=== PATIENT | female | born 1985 | race Caucasian/White ===

== ENCOUNTER 2022-07-17 11:39 | Outpatient (OUT) | payer BC, SELFPAY ==
[2022-07-17 16:36] VITALS: BMI 37.4
== END 2022-07-17 11:40 | disposition home or self-care (01) ==
PROVIDERS: PCP Family Medicine; Visit Provider Family Medicine
DX: K90.0 Celiac disease (principal)
CPT/HCPCS: 97802; S9470

== ENCOUNTER 2022-09-02 14:08 | Outpatient (OUT) | payer BC, SELFPAY ==
--- NOTE | 2022-09-02 07:20 | US_ITS ---
The [address] [address] Patient Name: LEANA TRAN MRN: [id number] date: 1985 Sex: F Assigned Patient Location: US Current Patient Location: US Accession/Order Number: [id number] Exam Date: 09/02/2022 07:25 Report Date: 09/02/2022 09:56 At the request of: ESTEBAN WALTERS Procedure: US renal BI PROCEDURE: US renal BI DATE: 09/02/2022 6:25 AM CDT COMPARISONS: CT abdomen and pelvis 11/14/[address] abdomen pelvis 02/24/2020 INDICATION FOR EXAMINATION: 36 years Female GROSS HEMATURIA R31.0 TECHNIQUE: Grayscale and color Doppler technique were utilized to evaluate the retroperitoneum. FINDINGS: KIDNEYS: The right kidney measures 9.5 x 6.1 x 4.3 cm. The left kidney measures 11.3 x 5.5 x 5.4 cm. There is no evidence of hydronephrosis. There is no ultrasonic evidence of solid focal renal masses or other significant renal parenchymal abnormalities. 8 x 8 x 7 mm hypoechoic area mid left kidney. This is nonspecific. This appears to have been on CT of 11/14/2021 and 02/24/2020. 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 It is likely of no clinical significance. There is no evidence of cortical thinning. URINARY BLADDER: There is no ultrasonic evidence of urinary bladder abnormalities. Bladder volume was approximately 500 mL of the time of this exam. ASSESSMENT: The kidneys and urinary bladder show no ultrasonic evidence of significant abnormalities. Electronically authenticated by: JIMI MAHONEY Date: 09/02/2022 09:56
== END 2022-09-02 14:09 | disposition home or self-care (01) ==
LOC: US 09-04 14:09
PROVIDERS: PCP Family Medicine; Visit Provider Urology
DX: R31.0 Gross hematuria (principal)
CPT/HCPCS: 76775

== ENCOUNTER 2022-10-06 07:27 | Outpatient (OUT) | payer BC, SELFPAY ==
[2022-10-06 08:13] LABS: Free T4 0.99 ng/dL (0.76-1.46)
[2022-10-06 09:48] LABS: Free T3 2.48 pg/mL (2.18-3.98); Thyroid Stimulating Hormone 4.255 uIU/mL (0.358-3.740)
== END 2022-10-06 07:28 | disposition home or self-care (01) ==
LOC: LAB 07:28
PROVIDERS: PCP Family Medicine
DX: E03.9 Hypothyroidism, unspecified (principal)
CPT/HCPCS: 36415; 84439; 84443; 84481

== ENCOUNTER 2022-12-12 10:56 | Outpatient (OUT) | payer BC, SELFPAY ==
[2022-12-12 12:49] LABS: Thyroid Stimulating Hormone 0.522 uIU/mL (0.358-3.740)
[2022-12-12 15:05] LABS: Free T4 0.92 ng/dL (0.76-1.46)
== END 2022-12-12 10:57 | disposition home or self-care (01) ==
PROVIDERS: PCP Family Medicine
DX: E03.8 Other specified hypothyroidism (principal); E06.3 Autoimmune thyroiditis
CPT/HCPCS: 36415; 84439; 84443

== ENCOUNTER 2023-01-01 15:53 | Outpatient (OUT) | payer BC, SELFPAY ==
[2023-01-01 16:25] LABS: Estimated Average Glucose 120 mg/dL; Glycohemoglobin A1C 5.8 % (4.5-6.2)
== END 2023-01-01 15:54 | disposition home or self-care (01) ==
LOC: LAB 15:54
PROVIDERS: PCP Family Medicine; Visit Provider Family Medicine
DX: E11.65 Type 2 diabetes mellitus with hyperglycemia (principal)
CPT/HCPCS: 36415; 83036

== ENCOUNTER 2023-01-24 09:21 | Outpatient (OUT) | payer BC, SELFPAY ==
--- OUTSIDE RECORDS SUMMARY | 2023-01-24 09:46 | XMS_ITS | CCD ---
Author Name Unknown Address [id number] [place] [address] Organization [facility] Care Team Providers Care Vendor Specialist Name Role Phone Cas Dowell MD Primary Care Provider CAS DOWELL Primary Care Unavailabl e CANDIDO DAVID Referring Unavailable CAS DOWELL Primary Care Unavailabl e NABOR YANCEY Referring Unavailable Cas Dowell MD Primary Care Provider Cas Dowell MD Primary Care Provider Cas Dowell Primary Care Provider [phone] Ana PEREZ, Sai Unavailable Rubens Tim Unavailable Rubens Tim DO Unavailable Cas Dowell MD Primary Care Provider Cas Dowell Primary Care Provider [phone] Ana PEREZ, Sai Unavailable Rubens Tim DO Unavailable Cas Dowell Primary Care Provider [phone] Rubens Tim DO Unavailable Cas Dowell Primary Care Provider CAS DOWELL Primary Care Physician CAS DOWELL Primary Care UnavailCas Cantor Primary Care Provider Ana PEREZ, Sai Unavailable Glenroy Rubens Vikram Unavailable Cas Dowell MD Primary Care Provider Glenroy Rubens Suzy Unavailable MUNIR, FUENTES Referring Unavailable NADERER, CAS Guzman Primary Care Unavailable ANA, SAI Referring Unavailable NADERER, CAS Gzuman Primary Care Unavailable GUZZOPETER Referring Unavailable NADERER, CAS Guzman Primary Care Unavailable ABHYANKAR, FUENTES Referring Unavailable NADERER, CAS Guzman Primary Care Unavailable PAY ., DR BURDEN Consulting Unavailable PAY ., DR BURDEN Attending Unavailable PAY ., DR BURDEN Admitting Unavailable NADERER, DR CAS Guzman Primary Care Unavailable NIRU, JEAN Consulting Unavailable EPSTEIN, MAREK Consulting Unavailable KLIPPER, BELÉN Consulting Unavailable NADERER, DR CAS Guzman Consulting Unavailable NADERER, DR CAS Guzman Primary Care Unavailable NADERER, DR CAS Guzman Referring Unavailable NADERER, DR CAS Guzman Attending Unavailable NADERER, DR CAS Guzman Admitting Unavailable ZIEBER, DR HUSAM Almonte Consulting Unavailable NADERER, DR CAS Guzman Primary Care Unavailable NADERER, DR CAS Guzman Attending Unavailable NADERER, DR CAS Guzman Admitting Unavailable NADERER, DR CAS Guzman Consulting Unavailable NADERER, DR CAS Guzman Consulting Unavailable NADERER, DR CAS Guzman Primary Care Unavailable NADERER, DR CAS Guzman Attending Unavailable NADERER, DR CAS Guzman Admitting Unavailable MISC, DR MADDOX Consulting Unavailable NADERER, DR CAS Guzman Primary Care Unavailable MISC, DR MADDOX Attending Unavailable MISC, DR MADDOX Admitting Unavailable NADERER, DR CAS Guzman Consulting Unavailable NADERER, DR CAS Guzman Primary Care Unavailable NADERER, DR CAS Guzman Attending Unavailable NADERER, DR CAS Guzman Admitting Unavailable NADERER, DR CAS Guzman Consulting Unavailable NADERER, DR CAS Guzman Primary Care Unavailable NADERER, DR CAS Guzman Attending Unavailable NADERER, DR CAS Guzman Admitting Unavailable [place], DR BELÉN Hatfield Consulting Unavailable NADERER, DR CAS Guzman Primary Care Unavailable TEJ, LORAINE Attending Unavailable TEJ, LORAINE Admitting Unavailable TEJ, LORAINE Consulting Unavailable GLENROY ., DR REYNOLDS Consulting Unavailable NADERER, DR CAS Guzman Primary Care Unavailable GLENROY ., DR REYNOLDS Attending Unavailable GLENROY ., DR REYNOLDS Admitting Unavailable FAWWAD, BLACKBURN H Primary Care Unavailable FAWWAD, BLACKBURN H Attending Unavailable FAWWAD, BLACKBURN H Admitting Unavailable REINECK, DR CORIE Espinosa Consulting Unavailabl e REINECK, DR CORIE Espinosa Attending Unavailabl e REINECK, DR CORIE Espinosa Admitting Unavailabl e NADERER, DR CAS Guzman Primary Care Unavailable PAY ., DR BURDEN Consulting Unavailable DARYN, AYAKA Consulting Unavailable RAYMOND, DR BELÉN [place] Consulting Unavailable MATILDE ., MARICEL Attending Unavailable MATILDE ., MARICEL Admitting Unavailable NADERER, DR CAS Guzman Primary Care Unavailable MORTEZA ., YANIRA Consulting Unavailable DAMION, JIMMY Starkey Consulting Unavailable Ana PEREZ, Sai Unavailable NADERER, CAS A Primary Care Unavailable ABHYANKAR, FUENTES Attending Unavailable NADERER, CAS A Primary Care Unavailable ABHYANKAR, FUENTES Attending Unavailable ABHYANKAR, FUENTES Referring Unavailable NADERER, CAS A Primary Care Unavailable ABHYANKAR, FUENTES Attending Unavailable NADERER, CAS A Primary Care Unavailable HARSH, RUTH Referring Unavailable HARSH, RUTH Attending Unavailable NADERER, CAS A Primary Care Unavailable AIDENCINDY Attending Unavailable NADERER, CAS A Primary Care Unavailable NADERER, CAS A Referring Unavailable ANA, SAI Referring Unavailable NADERER, CAS A Primary Care Unavailable LANDEN CLARK Attending Unavailable NADERER, CAS A Primary Care Unavailable NADERER, CAS A Primary Care Unavailable DEVNANI, MEENA Attending Unavailable NADERER, CAS A Primary Care Unavailable ABHYANKAR, FUENTES Referring Unavailable ABHYANKAR, FUENTES Attending Unavailable NADERER, CAS A Primary Care Unavailable DEVNANI, MEENA Referring Unavailable NADERER, CAS A Primary Care Unavailable DIANANIDOLORES Razo Attending Unavailable GRENFELL, BHARGAVI Attending Unavailable NADERER, CAS A Primary Care Unavailable NADERER, CAS A Primary Care Unavailable DEVNANI, MEENA Referring Unavailable GRENFELL, BHARGAVI Attending Unavailable NADERER, CAS A Primary Care Unavailable GRENFELL, BHARGAVI Referring Unavailable DEVNANI, MEENA Attending Unavailable NADERER, CAS A Primary Care Unavailable ANAMICHEAL CHANCE Attending Unavailable NADERER, CAS A Primary Care Unavailable NADERER, CAS A Primary Care Unavailable ABHYANKAR, FUENTES Attending Unavailable BHARGAVI SALDANA Attending Unavailable NADERER, CAS A Primary Care Unavailable NADERER, CAS A Primary Care Unavailable NADERER, CAS A Primary Care Unavailable DEVNANIMEENA Attending Unavailable NADERER, CAS A Primary Care Unavailable ABHYANKAR, FUENTES Attending Unavailable ABHYANKAR, FUENTES Referring Unavailable NADERER, CAS A Primary Care Unavailable ABHYANKAR, FUENTES Referring Unavailable ABHYANKAR, FUENTES Attending Unavailable NADERER, CAS A Primary Care Unavailable CHAYO MARTINS Admitting Unavailable CHAYO MARTINS Attending Unavailable NADERER, CAS DEMING Primary Care Unavailabl e FRANTZ, LIV Consulting Unavailable NADERER, [facility] Primary Care Unavailabl e SEAN MOSES Attending Unavailable NADERER, CAS DEMING Primary Care Unavailabl e NADERER, CAS DEMING Primary Care Unavailabl e NADERER, [facility] Primary Care Unavailabl e YAO, AKILA Referring Unavailable NADERER, [facility] Primary Care Unavailabl e YAO, AKILA Referring Unavailable Nadelr , [facility] Primary Care Unavail able William PEREZ, Phillip Guerra Attending Unavailable William PEREZ, Phillip Guerra Attending Unavailable Grayson PEREZ, [facility] Primary Care Unavail able Grayson PEREZ, [facility] Primary Care Unavail able William PEREZ, Phillip Guerra Attending Unavailable William PEREZ, Phillip Guerra Attending Unavailable Grayson PEREZ, [facility] Primary Care Unavail able William PEREZ, Phillip Guerra Attending Unavailable Grayson PEREZ, [facility] Primary Care Unavail able TEJLORAINE CASTRO Attending Unavailable TEJ, LORAINE E Attending Unavailable TEJ LORAINE E Attending Unavailable COOKMarcell P Referring Unavailable COOK, Marcell P Attending Unavailable COOK, Marcell P Admitting Unavailable NILTesfaye Lewis Attending Unavailable NADERERCAS Referring Unavailable KARABIMagalis, MACRINA Attending Unavailable KARABIN, MACRINA Attending Unavailable KARABIN, MACRINA Attending Unavailable KARABIN, MACRINA Attending Unavailable ABELSTEPHON Admitting Unavailable ABEL, STEPHON Attending Unavailable ANGELIKA CORONEL Attending Unavailable ANGELIKA CORONEL Attending Unavailable NADERER, CAS Attending Unavailable Allergies Allergy Classification Reported Allergen(s) Allergy Type Date of Onset Reaction(s) Facility Aluminum aspirin (1 source) Aluminum aspirin Drug Allergy 09-04-19 12 [facility] Cephalosporins (antibiotic) (2 sources) Cefaclor Drug Allergy 09-04-19 12 Shortness Of Breath, [facility] Phone: drospirenone / Ethinyl Estradiol (1 source) drospirenone / Ethinyl Estradiol Drug Allergy 09-04-19 12 [facility] Phone: Ethinyl Estradiol / Norethindrone (1 source) Ethinyl Estradiol / Norethindrone Drug Allergy 09-04-19 12 [facility] Phone: Latex (1 source) Latex Substance Allergy 09-04-19 12 Swelling, [facility] Phone: Macrolides (antibiotic) (1 source) Erythromycin Drug Allergy 09-04-19 12 Shortness Of Breath [facility] Phone: NSAIDs (1 source) Ibuprofen Drug Allergy 09-04-19 12 [facility] Phone: Penicillins (antibiotic) (1 source) Penicillins Drug Allergy 09-04-19 12 [facility] Phone: rofecoxib (1 source) rofecoxib Drug Allergy 09-04-19 12 [facility] Phone: Sulfonamides (antibiotic) (1 source) Sulfonamides (Antibiotic) Drug Allergy 03-21-19 16 [facility] Unclassified (8 sources) Clindamycin/Lincomy juan Propensity to adverse reactions to drug 09-04-19 12 [facility] Phone: Unclassified (20 sources) Iodides; Translations: [IODIDES] Propensity to adverse reactions to drug 09-04-19 12 Unknown [facility] Phone: Unclassified (8 sources) Lavender Oil Propensity to adverse reactions to drug 06-14-19 21 Anaphylaxis [facility] (11 sources) Aluminum aspirin; Translations: [ASPIRIN] Drug Allergy 09-04-19 12 Rash [facility] (20 sources) Cefaclor; Translations: [cefaclor] Drug Allergy 09-04-19 12 Shortness Of Breath, Anaphylaxis, Swelling, Unknown (qualifier value) [facility] Phone: (20 sources) Cefuroxime; Translations: [CEFUROXIME AXETIL] Drug Allergy 09-04-19 12 Rash, Unknown, Shortness of Breath [facility] Phone: (20 sources) drospirenone / Ethinyl Estradiol; Translations: [DROSPIRENONE-ETHIN YL ESTRADIOL] Drug Allergy 09-04-19 12 Unknown, Other: See Comments [facility] Phone: (20 sources) Erythromycin; Translations: [ERYTHROMYCIN] Drug Allergy 09-04-19 12 Shortness Of Breath, Swelling, Unknown [facility] Phone: (7 sources) Ethinyl Estradiol / Norethindrone Drug Allergy 09-04-19 12 [facility] Phone: (11 sources) Ibuprofen; Translations: [ibuprofen] Drug Allergy 09-04-19 12 Unknown (qualifier value) [facility] (20 sources) Latex; Translations: [LATEX] Propensity to adverse reactions to drug 09-04-19 12 Swelling, Rash, Itching, Unknown, Eruption of skin (disorder) [facility] Phone: (9 sources) Penicillins; Translations: [PENICILLINS] Propensity to adverse reactions to drug 09-04-19 12 Rash [facility] Phone: (20 sources) rofecoxib Drug Allergy 09-04-19 12 Unknown [facility] Phone: (6 sources) Sulfonamides (Antibiotic) Propensity to adverse reactions to drug 03-21-19 16 [facility] (20 sources) Aspirin; Translations: [aspirin] Drug Allergy 02-23-19 15 Unknown, Angioedema, Unknown (qualifier value) [facility] (20 sources) Clindamycin; Translations: [clindamycin] Drug Allergy 02-23-19 15 Swelling, Shortness of Breath, Rash, Unknown (qualifier value) [facility] (20 sources) Contrast media; Translations: [CONTRAST DYE] Drug Allergy 09-04-19 12 Anaphylaxis [facility] (20 sources) Naproxen; Translations: [NAPROXEN] Drug Allergy 09-07-19 21 Swelling, Angioedema [facility] (19 sources) Penicillins Propensity to adverse reactions to drug 02-23-19 15 Rash, Itching [facility] (20 sources) Sulfonamides (Antibiotic); Translations: [SULFA (SULFONAMIDE ANTIBIOTICS)] Drug Allergy 03-21-19 16 Swelling, Shortness of Breath [facility] (20 sources) Lavender (Lavandula Angustifolia); Translations: [LAVENDER (LAVANDULA ANGUSTIFOLIA)] Drug Allergy 06-14-19 21 Anaphylaxis [facility] (4 sources) Eucalyptus oil Drug Allergy 10-24-19 21 [facility] (20 sources) gatifloxacin; Translations: [GATIFLOXACIN] Drug Allergy 12-22-19 15 Diarrhea [facility] Work Phone: (18 sources) Norethindrone-Ethin Estradiol; Translations: [NORETHINDRONE-ETHI N ESTRADIOL] Propensity to adverse reactions to drug 06-09-19 22 Unknown [facility] (20 sources) Eucalyptus extract; Translations: [EUCALYPTUS] Drug Allergy 10-24-19 21 Anaphylaxis [facility] (20 sources) levoFLOXacin; Translations: [LEVOFLOXACIN] Drug Allergy 11-12-19 21 Rash [facility] (17 sources) metroNIDAZOLE; Translations: [METRONIDAZOLE] Drug Allergy 03-02-19 22 Unknown [facility] (18 sources) Sulfamethoxazole / Trimethoprim; Translations: [SULFAMETHOXAZOLE-T RIMETHOPRIM] Drug Allergy 01-24-20 14 Unknown [facility] (20 sources) Fish; Translations: [FISH CONTAINING PRODUCTS] Drug Allergy 07-26-19 22 [facility] Work Phone: (20 sources) Shellfish; Translations: [SHELLFISH DERIVED] Drug Allergy 07-26-19 22 [facility] Work Phone: (20 sources) Penicillins Propensity to adverse reactions to drug 09-04-19 12 Rash, Itching [facility] (20 sources) Penicillin G; Translations: [PENICILLIN G BENZATHINE] Drug Allergy 08-19-19 22 Unknown [facility] Work Phone: (6 sources) Iodine; Translations: [iodine] Drug Allergy 05-25-19 23 Unknown (qualifier value) [facility] (6 sources) Macrolides (Antibiotic); Translations: [macrolide antibiotics] Drug allergy 09-04-19 12 Allergy - specialty (qualifier value) [facility] (6 sources) Penicillin; Translations: [penicillin] Drug Allergy Unknown (qualifier value) [facility] (6 sources) Sulfonamides (Antibiotic); Translations: [sulfa drugs] Drug allergy Allergy - specialty (qualifier value) [facility] (7 sources) valACYclovir; Translations: [valacyclovir] Drug Allergy 10-06-19 22 Anaphylaxis (disorder), Shortness Of Breath [facility] (5 sources) Povidone-Iodine; Translations: [povidone iodine topical] Drug Allergy 05-25-19 23 Eruption of skin (disorder) [facility] (1 source) Seafood Propensity to adverse reactions to drug 01-09-20 22 Hives, Rash [facility] Work Phone: (3 sources) rofecoxib; Translations: [ROFECOXIB] Drug Allergy 09-04-19 12 [facility] Rep[facility] (3 sources) IODINATED CONTRAST MEDIA; Translations: [IODINATED CONTRAST MEDIA] Propensity to adverse reactions to drug (disorder) 02-23-19 15 [facility] (1 source) Aspirin Drug Allergy 03-12-19 15 [facility] Repository (3 sources) Cefaclor; Translations: [Ceclor] Drug Allergy 03-12-19 15 [facility] Rep[facility] (2 sources) Cefuroxime; Translations: [Ceftin] Drug Allergy 03-12-19 15 [facility] (1 source) Clindamycin Drug Allergy 03-12-19 15 [facility] (1 source) Erythromycin Drug Allergy 03-12-19 15 [facility] (1 source) Eucalyptus extract Drug Allergy 10-24-19 21 [facility] (1 source) gatifloxacin Drug Allergy 12-22-19 15 [facility] (2 sources) Ibuprofen; Translations: [Motrin] Drug Allergy [facility] (1 source) Iodine (And Iodine Containting Drugs) Drug allergy (disorder) 03-12-19 15 [facility] (1 source) Latex Drug allergy (disorder) 03-12-19 15 [facility] (1 source) levoFLOXacin Drug Allergy 11-12-19 21 [facility] (1 source) Naproxen Drug Allergy 08-07-19 21 [facility] (1 source) Penicillins Drug allergy (disorder) 03-12-19 15 [facility] (1 source) rofecoxib Drug Allergy 03-12-19 15 [facility] (1 source) Sulfamethoxazole / Trimethoprim Drug Allergy 02-23-19 21 [facility] (1 source) Sulfonamides (Antibiotic) Drug allergy (disorder) 03-12-19 15 [facility] (1 source) valACYclovir Drug Allergy [facility] Rep[facility] (1 source) CT dye and contrast; Translations: [CT dye and contrast] Propensity to adverse reactions (disorder) [facility] Repository (1 source) buPROPion; Translations: [BUPROPION] Drug Allergy 06-22-19 [facility] Repository (1 source) dimethicone; Translations: [DIMETHICONE] Drug Allergy 07-08-19 23 [facility] (1 source) Ibuprofen; Translations: [IBUPROFEN] Drug Allergy 09-04-19 12 [facility] (1 source) Menthol; Translations: [MENTHOL] Drug Allergy 02-27-19 23 [facility] (1 source) natural latex rubber; Translations: [LATEX, NATURAL RUBBER] Propensity to adverse reactions to drug (disorder) 09-04-19 12 [facility] (1 source) zolpidem; Translations: [ZOLPIDEM] Drug Allergy 05-25-19 [facility] (1 source) GLOVES, LATEX WITH ALOE VERA; Translations: [GLOVES, LATEX WITH ALOE VERA] Propensity to adverse reactions to drug (disorder) 08-19-19 [facility] (1 source) NORETHINDRONE AC-ETH ESTRADIOL; Translations: [NORETHINDRONE AC-ETH ESTRADIOL] Propensity to adverse reactions to drug (disorder) 09-04-19 [facility] Rep[facility] Medications Current Medications Medication Drug Class(es) Dates Sig (Normalized) Sig (Original) 6-aminocaproic acid 500 mg oral tablet (5 sources) Antifibrinolytic Agent Start: 04-03-2022 End: 10-22-2022 aminocaproic acid (AMICAR) 500 mg tablet Indications: 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HCC) Take 2 tablets by mouth every 6 hours as needed (once prior to dentist and then after for 3-4 doses.) for up to 20 days. 40 tablet 3 10/02/2022 10/22/2022 Active Comment on above: Take 2 tablets by mo uth every 6 hours as needed (once prior to dentist and then after for 3-4 doses.) for up to 5 days. Take 2 tablets by mo uth every 6 hours as needed (once prior to dentist and then after for 3-4 doses.) for up to 20 days. acetaminophen 500 mg oral tablet (2 sources) Start: 01-30-2022 take 1 tablet by mouth every six hours as needed for pain acetaminophen (TYLENOL) 500 MG tablet Take 1 tablet by mouth every 6 hours as needed for Pain 30 tablet 0 01/30/2022 Active Start: 11-01-2020 End: 11-01-2020 acetaminophen (TYLENOL) tabl et 650 mg acetaminophen 325 mg / butalbital 50 mg / caffeine 40 mg oral tablet (1 source) Barbiturate, Central Nervous System Stimulant, Methylxanthine take 1 tablet by mouth every four hours as needed for headache yqtgimdxho-wvcjebgyyeytl-qipswdso (FIORICET) 50-325-40 MG per tablet Take 1 tablet by mouth every 4 hours as needed for Headaches 0 Active acetaminophen 325 mg / HYDROcodone bitartrate 5 mg oral tablet (1 source) Opioid Agonist Sta rt: 2 End : 2 HYDROcodone-acetaminophen (N ORCO) 5-325 MG per tablet Indications: Abdominal pain, acute, right lower quadrant Take 1 tablet by mouth every 8 hours as needed for Pain for up to 2 days. Intended supply: 3 days. Take lowest dose possible to manage pain 6 tablet 0 05/20/2021 05/22/2021 Active [id number] 200 actuat albuterol 0.09 mg/actuat metered dose inhaler (20 sources) beta2-Adrenergic Agonist Sta rt: 2 albuterol (PROVENTIL) (2.5 M G/3ML) 0.083% nebulizer solution Take 3 mLs by nebulization every 6 hours as needed for Wheezing 120 each 3 01/11/2022 Active Start: 01-11-2022 take 1 puff(s) by inhalation every six hours as needed for wheezing albuterol sulfate HFA (PROVENTIL;VENTOLIN;PROAIR) 108 (90 Base) MCG/ACT inhaler Inhale 1 puff into the lungs every 6 hours as needed for Wheezing 18 g 3 01/11/2022 Active Start: 06-04-2021 albuterol (PRO VENTIL) nebulizer solution 2.5 mg Start: 11-01-2020 End: 05-20-2021 albuterol (PROVENTIL) (2.5 M G/3ML) 0.083% nebulizer solution Take 3 mLs by nebulization every 6 hours as needed for Wheezing 30 each 3 11/01/2020 05/20/2021 Discontinued (LIST CLEANUP) End: 10-31-2021 ALBUTEROL INHALATION Inhale as instructed as needed. 0 10/31/2021 Discontinued take 2 puff(s) by inhalation every six hours as needed for wheezing albuterol sulfate HFA (PROVENTIL;VENTOLIN;PROAIR) 108 (90 Base) MCG/ACT inhaler Inhale 2 puffs into the lungs every 6 hours as needed for Wheezing 0 Active ALBUTEROL INHALA TION Inhale as instructed as needed. 0 Active Comment on above: Inhale as instructed as needed. arformoterol 0.0075 mg/ml inhalation solution (20 sources) beta2-Adrenergic Agonist Start: 2021 Arfor moterol Tartrate (BROVANA) 15 MCG/2ML NEBU Take 1 ampule by nebulization 2 times daily 60 mL 11 2021 Active Start: 11-03-2021 End: 05-02-2022 take 2 mL by inhalation every twelve hours arformoterol (BROVANA) 15 mcg/2 mL nebulizer solution Indications: Post-acute sequelae of COVID-19 (PASC) , Chronic cough , SOB (shortness of breath) , Moderate persistent asthma without complication Inhale 2 mL as instructed every 12 hours. 120 mL 5 11/03/2021 04/03/2022 Discontinued (Discontinued by Patient) Comment on above: Inhale 2 mL as instr ucted every 12 hours. Baclofen (20 sources) gamma-Aminobutyric Acid-ergic Agonist Start: 2021 baclofen Oral, TID, Refills(s) 0 Start Date: 12/21/21 Status: Ordered Start: 08-24-2021 End: 08-24-2022 take 10-20 mg by mouth every twenty-four hours as needed baclofen (LIORESAL) 10 mg tablet Take 10-20 mg by mouth at bedtime as needed. 0 08/24/2021 08/24/2022 Active Comment on above: Take 10-20 mg by shaji th at bedtime as needed. benzonatate 100 mg oral capsule (2 sources) Non-narcotic Antitussive Start: 11-01-2020 End: 11-08-2020 benzonatate (TESSALON) capsule 100 mg budesonide 0.25 mg/ml inhalation suspension (20 sources) Corticosteroid Start: 2021 budesonide (PULMICORT) 0.5 MG/2ML nebulizer suspension Take 2 mLs by nebulization 2 times daily 60 each 2021 Active Start: 10-31-2021 End: 04-29-2022 take 2 mL by inhalation every twelve hours budesonide (PULMICORT) 0.5 mg/2 mL nebulizer solution Indications: Post-acute sequelae of COVID-19 (PASC) , Chronic cough , SOB (shortness of breath) , Moderate persistent asthma without complication Use 2 mL via nebulizer every 12 hours. Inhale over 5-15 minutes 120 mL 5 10/31/2021 04/26/2022 Discontinued (Discontinued by another Health Care Provider) take 2 puff(s) by in halation twice daily budesonide (PULMICORT) 180 MCG/ACT AEPB inhaler Inhale 2 puffs into the lungs 2 times daily. 0 Active Comment on above: Use 2 mL via nebuliz er every 12 hours. Inhale over 5-15 minutes cetirizine hydrochloride 10 mg oral tablet (20 sources) Histamine-1 Receptor Antagonist Start: 08-03-2021 cetirizine 10 mg Tab Refills(s) 0 Start Date: 12/16/21 Status: Ordered Start: 06-04-2021 End: 06-09-2021 take 1 tablet by mouth twice daily cetirizine (ZYRTEC) 10 MG tablet Take 1 tablet by mouth 2 times daily for 5 days 10 tablet 0 06/04/2021 06/09/2021 Active End: 06-10-2021 Cetirizine (ZYRTEC) 10 mg ca p Take by mouth. 0 06/10/2021 Discontinued Comment on above: Take by mouth. Take 10 mg by mouth as needed. ciprofloxacin 250 mg oral tablet (2 sources) Quinolone Antimicrobial Start: 2021 take 1 tablet by mouth once daily Cipro 250 mg Tab See Instructions, 1 tab po day prior to procedure. 1 tab po following procedure., # 2 tab(s), Refills(s) 0, Pharmacy: [facility]/pharmacy #[id number], 162, cm, 12/21/21 8:50:00 EST, Height/Length Dosing, 99, kg, 12/21/21 8:50:00 EST, Weight Dosing Start Date: 12/21/21 Status: Ordered 12 hr dextromethorphan hydrobromide 30 mg / guaiFENesin 600 mg extended release oral tablet (1 source) Uncompetitive L-euxrkg-M-aspartat e Receptor Antagonist, Sigma-1 Agonist take 30-600 mg by mouth once as needed dextromethorphan-g uaiFENesin (MUCINEX DM) 30-600 MG per extended release tablet Take 1 tablet by mouth every 12 hours as needed 0 Active famotidine 20 mg oral tablet (20 sources) Histamine-2 Receptor Antagonist Start: 06-04-2021 End: 06-09-2021 take 1 tablet by mouth twice daily famotidine (PEPCID) 20 MG tablet Take 1 tablet by mouth 2 times daily for 5 days 10 tablet 0 06/04/2021 Active Start: 04-16-2021 famotidine (PE PCID) injection 20 mg Start: 08-22-2020 End: 03-10-2022 take 1 tablet by mouth twice daily famotidine (PEPCID) 40 mg tablet Take 40 mg by mouth twice daily. 0 08/22/2020 06/10/2021 Discontinued End: 05-20-2021 take 1 tablet by mouth twice daily famotidine (PEPCID) 20 MG tablet Take 20 mg by mouth 2 times daily 0 05/20/2021 Discontinued (LIST CLEANUP) Comment on above: Take 40 mg by mouth twice daily. Take 40 mg by mouth as needed. FLUoxetine 20 mg oral capsule (1 source) Serotonin Reuptake Inhibitor take 2 capsules by mouth once daily FLUoxetine (PROZAC) 20 MG capsule Take 40 mg by mouth daily 0 Active fluticasone propionate 0.05 mg/actuat metered dose nasal spray (20 sources) Corticosteroid Start: 12-17-19 Flonase Allergy Relief 50 mcg/inh nasal spray Daily, Refills(s) 0 Start Date: 12/16/21 Status: Ordered Start: 07-14-2021 End: 10-19-2021 take 1 spray(s) nasal route twice daily fluticasone (FLONASE) 50 mcg/actuation nasal spray Use 1 [place] in each nostril twice daily. 3 Each 07/14/2021 10/19/2021 Active Fluticasone Furo ate (FLONASE SENSIMIST) 27.5 mcg/actuation nasal spray 1 spray in each nostril 0 Active fluticasone (JAY AMYST) 27.5 MCG/SPRAY nasal spray 2 sprays by Nasal route daily 0 Active Comment on above: Use 1 [place] in each nostril twice daily. 1 spray in each nost ril Ajovy (20 sources) Start: 2021 inject 1 mg by subcutaneous injection every month Ajovy mg, SubCutaneous, qMonth, Refills(s) 0 Start Date: 12/21/21 Status: Ordered Start: 10-19-2021 inject 1.5 mL by sub cutaneous injection every month fremanezumab-vfrm subcutaneus auto-injector 225 mg/1.5 mL (AJOVY) Indications: Chronic migraine without aura, intractable, without status migrainosus Inject 1.5 mL subcutaneously once every month. Do not shake. 1.5 mL 11 10/19/2021 Active Comment on above: Inject 1.5 mL subcut aneously once every month. Do not shake. lamoTRIgine 150 mg oral tablet (20 sources) Mood Stabilizer, Anti-epileptic Agent Start: 12-16-2021 lamotrigine 150 mg Tab Refills(s) 0 Start Date: 12/16/21 Status: Ordered Comment on above: Take 150 mg by mouth daily at bedtime. Xopenex (20 sources) beta2-Adrenergic Agonist Start: 2021 Xopen ex NEB, TID, Refills(s) 0 Start Date: 12/21/21 Status: Ordered Start: 10-31-2021 take 1-2 puff(s) by inhalation every four hours as needed for wheezing levalbuterol tartrate HFA 45 mcg/actuation inhaler Indications: Post-acute sequelae of COVID-19 (PASC) , Moderate persistent asthma without complication Inhale 1-2 Puffs as instructed every 4 hours as needed for wheezing/shortness of breath. 1 Each 3 10/31/2021 Active Comment on above: Inhale 1-2 Puffs as instructed every 4 hours as needed for wheezing/shortness of breath. levocetirizine dihydrochloride 5 mg oral tablet (1 source) Histamine-1 Receptor Antagonist Start: 09-05-2022 take 1 mg by mouth once daily in the evening Xyzal 5 mg oral tablet mg, tab(s), Oral, qPM, Refill(s) 0 Start Date: 09/05/22 Status: Ordered levothyroxine sodium 0.112 mg oral tablet (20 sources) l-Thyroxine Start: 01-18-2022 take 0.5 tablet by mouth every week levothyroxine (SYNTHROID) 112 MCG tablet Take 0.5 tablets by mouth once a week Take on Wednesdays 30 tablet 3 01/18/2022 Active Start: 01-12-2022 take 1 tablet by shaji th once daily levothyroxine (SYNTHROID) 112 MCG tablet Take 1 tablet by mouth daily 30 tablet 3 01/12/2022 Active Start: 12-16-2021 take 1 ug by mouth once daily Synthroid 112 mcg Tab mcg tab(s), Oral, Daily, Refills(s) 0 Start Date: 12/16/21 Status: Ordered take 1.5 tablets by mouth once daily levothyroxine (SYNTHROID) 100 mcg tablet Take 100 mcg by mouth daily before breakfast. Takes 1.5 tablets on Wednesdays 0 Active take 1.5 tablets by mouth once daily levothyroxine (SYNTHROID) 112 mcg tablet Take 112 mcg by mouth daily before breakfast. Takes 1.5 tablets on Wednesdays 0 Active Levothyroxine So dium 75 MCG CAPS Take 112 mcg by mouth daily 0 Active Comment on above: Take 112 mcg by mout h daily before breakfast. Takes 1.5 tablets on Wednesdays Take 100 mcg by mout h daily before breakfast. Takes 1.5 tablets on Wednesdays LORazepam 0.5 mg oral tablet (20 sources) Benzodiazepine Start: 06-28-2021 End: 03-10-2022 take 1 tablet by mouth at bedtime LORazepam (ATIVAN) 0.5 MG tablet TAKE 1 TABLET BY MOUTH AT BEDTIME 0 06/28/2021 Active Start: 06-04-2021 End: 06-04-2021 LORazepam (ATIVAN) injection 1 mg End: 05-20-2021 take 1 tablet by mouth twice daily as needed for anxiety LORazepam (ATIVAN) 1 MG tablet Take 1 mg by mouth 2 times daily as needed for Anxiety. 0 05/20/2021 Discontinued (LIST CLEANUP) Comment on above: Take 0.5 mg by mouth twice daily as needed. methocarbamol 500 mg oral tablet (2 sources) Muscle Relaxant Start: 06-21-2021 take 1-2 tablets by mouth four times daily as needed for pain methocarbamol (ROBAXIN) 500 MG tablet 1 to 2 pills by mouth 4 times daily as needed muscle pain/spasm 56 tablet 1 06/21/2021 Active 2 ml metoclopramide 5 mg/ml prefilled syringe (5 sources) Dopamine-2 Receptor Antagonist Start: 04-16-2021 metoclopramide (REGLAN) injection 10 mg Start: 04-16-2021 End: 04-28-2021 take 1 tablet by mouth three times daily as needed for vomiting metoclopramide (REGLAN) 10 MG tablet Take 1 tablet by mouth 3 times daily as needed (vomiting) 12 tablet 0 04/16/2021 Active perflutren lipid microsphere s 1.3 mL in NaCl (PF) 0.9% 10 mL injection (DEFINITY) (20 sources) Start: 07-21-2021 End: 10-20-2022 perflutren lipid microsphere s 1.3 mL in NaCl (PF) 0.9% 10 mL injection (DEFINITY) predniSONE 10 mg oral tablet (12 sources) Start: 01-11-2022 predniSONE (DE LTASONE) 10 MG tablet 4 tabs daily for 3 days, 3 tabs daily for 3 days, 2 tabs daily for 3 days, 1 tab daily for 3 days 30 tablet 0 01/11/2022 Active Start: 10-07-2021 End: 11-19-2021 take 50 mg by mouth once daily predniSONE (DELTASONE) 50 mg Take 50 mg by mouth once daily. 0 10/07/2021 11/19/2021 Discontinued Start: 08-24-2021 take 2 tablets by mo uth in the morning, then take 2 tablets by mouth at lunch predniSONE (DELTASONE) 20 MG tablet TAKE 2 TABLETS (40 MG TOTAL) BY MOUTH IN THE MORNING with breakfast AND 2 TABLETS (40 MG TOTAL) with lunch. DO ALL THIS FOR 5 DAYS. 0 08/24/2021 Active Start: 06-04-2021 End: 06-09-2021 take 4 tablets by mouth once daily predniSONE (DELTASONE) 10 MG tablet Take 4 tablets by mouth daily for 5 days 20 tablet 0 06/04/2021 06/09/2021 Active Comment on above: Take 50 mg by mouth once daily. pyridostigmine bromide 60 mg oral tablet (2 sources) Start: 07-21-2022 take 1 mg by mouth three times daily Mestinon 60 mg Tab mg tab(s), Oral, TID Start Date: 09/05/22 Status: Ordered Comment on above: Take by mouth. sertraline 100 mg oral tablet (20 sources) Serotonin Reuptake Inhibitor Start: 12-16-2021 sertraline 100 mg Ta b Refills(s) 0 Start Date: 12/16/21 Status: Ordered Start: 06-11-2019 take 2 tablets by mo uth once daily at bedtime sertraline (ZOLOFT) 100 mg tablet Take 200 mg by mouth daily at bedtime. 0 06/11/2019 Active sertraline (ZOLO FT) 100 MG tablet Take 150 mg by mouth daily 0 Active Comment on above: Take 200 mg by mouth daily at bedtime. SITagliptin 100 mg oral tablet (20 sources) Dipeptidyl Peptidase 4 Inhibitor Start: 11-23-2020 End: 10-20-2021 Januvia 100 mg Tab Refills(s) 0 Start Date: 12/16/21 Status: Ordered Comment on above: Take 100 mg by mouth as needed. Take 1 tablet by shaji th once daily. 125 ml sodium chloride 9 mg/ ml prefilled syringe (20 sources) Start: 07-21-2021 End: 10-20-2022 sodium chloride 0.9 % (flush ) 10 mL (BD POSIFLUSH) Start: 05-20-2021 End: 05-20-2021 0.9 % sodium chloride bolus Start: 04-16-2021 End: 04-16-2021 0.9 % sodium chloride bolus tamsulosin hydrochloride 0.4 mg oral capsule (1 source) alpha-Adrenergic Tej Start: 09-05-2022 take 1-2 tablets by mouth once daily tamsulosin 0.4 mg Cap See Instructions, take 1-2 tabs po daily when you feel like you are passing a stone, # 30 tab(s), Refills(s) 1, Pharmacy: [facility]/pharmacy #[id number], 162, cm, 09/05/22 8:28:00 EDT, Height/Length Dosing, 99, kg, 09/05/22 8:28:00 EDT, Weight Dosing Start Date: 09/05/22 Status: Ordered traZODone hydrochloride 100 mg oral tablet (9 sources) Serotonin Reuptake Inhibitor End: 06-10-2021 take 1 tablet by mouth once daily traZODone (DESYREL) 100 MG tablet Take 100 mg by mouth daily 0 Active Comment on above: Take 100 mg by mouth as needed. Vitamin B12, Folate, and Acetylcysteine oral tablet (4 sources) Start: 12-16-2021 take 1 tablet by mouth once daily Vitamin B12, Folate, and Acetylcysteine oral tablet tab(s), Oral, Daily, Refill(s) 0 Start Date: 12/16/21 Status: Ordered Vitamin D3 (4 sources) Start: 11-11-2022 Vitamin D3 Refills(s) 0 Start Date: 12/16/21 Status: Ordered zolpidem tartrate 5 mg oral tablet (20 sources) gamma-Aminobut yric Acid-ergic Agonist Start: 05-19-2021 zolpidem (AMBIEN) 5 MG tablet Take 2.5 mg by mouth as needed. 0 05/19/2021 Active Start: 05-19-2021 End: 07-21-2021 zolpidem (AMBIEN) 5 mg table t Take 5 mg by mouth as needed. 0 05/19/2021 07/21/2021 Discontinued (Discontinued by another Health Care Provider) Comment on above: Take 5 mg by mouth a s needed. zonisamide 100 mg oral capsule (20 sources) Anti-epileptic Agent Start: 11-17-2020 End: 07-06-2021 take 1 mg by mouth once daily zonisamide 100 mg Cap mg cap(s), Oral, Daily, Refills(s) 0 Start Date: 12/16/21 Status: Ordered take 2 capsules by mouth once da jair zonisamide (ZONEGRAN) 25 MG capsule Take 50 mg by mouth daily 0 Active Comment on above: Take 1 capsule by [facility] once daily. Completed/Discontinued Medications Medication Drug Class(es) Dates Sig (Normalized) Sig (Original) albuterol 0.833 mg/ml / ipratropium bromide 0.167 mg/ml inhalation solution (1 source) Anticholinergic, beta2-Adrenergic Agonist Start: 09-05-2021 End: 09-05-2021 ipratropium-albute rol (DUONEB) nebulizer solution 1 ampule Start: 09-05-2021 End: 09-05-2021 ipratropium-albuterol (DUONE B) nebulizer solution 1 ampule ascorbic acid 100 mg oral tablet (20 sources) Vitamin C take 1 tablet by [facility] once daily Ascorbic Acid 100 mg tablet Take 100 mg by mouth once daily. 0 Active Comment on above: Take 100 mg by mouth once daily. ASCORBIC ACID, VITAMIN C, ORAL (15 sources) End: 10-02-2022 take 100 mg by mouth once daily ASCORBIC ACID, VITAMIN C, ORAL Take 100 mg by mouth once daily. With zinc 0 10/02/2022 Discontinued take 100 mg by mouth once daily ASCORBIC ACID, VITAMIN C, ORAL Take 100 mg by mouth once daily. With zinc 0 Active Comment on above: Take 100 mg by mouth once daily. With zinc azelastine hydrochloride 0.137 mg/actuat metered dose nasal spray (2 sources) Histamine-1 Receptor Antagonist Start: 09-07-2022 take 1 spray(s) nasal route at bedtime azelastine 0.1% nasal spray SPRAY 1 SPRAY INTO EACH NOSTRIL IN THE MORNING AND BEFORE BEDTIME DIRECTED 0 09/07/2022 Active Start: 09-05-2022 azelastine madeline al spray Nasal, BID, Refill(s) 0 Start Date: 09/05/22 Status: Ordered Comment on above: SPRAY 1 SPRAY INTO E ACH NOSTRIL IN THE MORNING AND BEFORE BEDTIME DIRECTED onabotulinumtoxina 100 unt injection (20 sources) Acetylcholine Release Inhibitor End: 10-19-2021 onabotulinum toxin type A (BOTOX) 100 unit solr by INJECTION(UNSPECIFIED PARENTERAL ROUTES) route every 3 months. 0 10/19/2021 Discontinued (Discontinued by Patient) Comment on above: by INJECTION(UNSPECI FIED PARENTERAL ROUTES) route every 3 months. brexpiprazole 1 mg oral tablet (6 sources) Atypical Antipsychotic Start: 06-14-2020 End: 06-10-2021 take 1 tablet by mouth once daily REXULTI 1 mg tablet Take 1 mg by mouth once daily. 0 06/14/2020 06/10/2021 Discontinued Comment on above: Take 1 mg by mouth o nce daily. Budesonide / formoterol (20 sources) Corticosteroid, beta2-Adrenergic Agonist End: 10-31-2021 budesonide-formoterol (SYMBICORT) 160-4.5 mcg/actuation inhaler Inhale 2 Puffs as instructed as needed. 0 10/31/2021 Discontinued take 2 puff(s) by in halation once daily budesonide-formoterol (SYMBICORT) 160-4. 5 MCG/ACT AERO Inhale 2 puffs into the lungs daily 0 Active budesonide-formo terol (SYMBICORT) 160-4.5 mcg/actuation inhaler Inhale 2 Puffs as instructed as needed. 0 Active Comment on above: Inhale 2 Puffs as in structed as needed. cholecalciferol 0.125 mg oral tablet (20 sources) Vitamin D Start: 04-29-2021 take 1 tablet by mouth once daily VITAMIN D-3 125 mcg (5,000 unit) tab Take 5,000 Units by mouth once daily. 0 04/29/2021 Active Cholecalciferol (VITAMIN D3) 50 MCG (2000 UT) CAPS Take by mouth 0 Active Comment on above: Take 5,000 Units by mouth once daily. CPAP/BIPAP/OTHER (4 sources) CPAP/BIPAP/OTHER Type .CPAPSettings into a note to see current settings/supplies/DME information. 0 Active Comment on above: Type .CPAPSettings i nto a note to see current settings/supplies/DME information. cyclobenzaprine hydrochloride 10 mg oral tablet (3 sources) Muscle Relaxant End: 06-10-2021 cyclobenzaprine (FLEXERIL) 10 mg tablet cyclobenzaprine 10 mg tablet 0 06/10/2021 Discontinued Comment on above: cyclobenzaprine 10 m g tablet dexamethasone phosphate 10 mg/ml injectable solution (1 source) Corticosteroid Start: 06-13-2020 End: 06-13-2020 dexamethasone (DECADRON) injection 10 mg Start: 06-13-2020 End: 06-13-2020 dexamethasone (DECADRON) inj ection 10 mg 1 ml diphenhydrAMINE hydrochloride 50 mg/ml cartridge (20 sources) Histamine-1 Receptor Antagonist Start: 09-05-2021 End: 09-05-2021 diphenhydrAMINE (BENADRYL) injection 25 mg Start: 06-04-2021 End: 06-04-2021 diphenhydrAMINE (BENADRYL) i njection 50 mg Start: 04-16-2021 End: 04-16-2021 diphenhydrAMINE (BENADRYL) i njection 25 mg take 2 tablets by mo uth every six hours as needed diphenhydrAMINE (BENADRYL) 25 mg tablet Take 50 mg by mouth every 6 hours as needed. 0 Active End: 06-10-2021 take 1 capsule by mouth every six hours as needed for sleep diphenhydrAMINE (BENADRYL) 50 MG capsule Take 50 mg by mouth every 6 hours as needed for Itching or Sleep 0 Active Comment on above: Take 50 mg by mouth. Take 50 mg by mouth every 6 hours as needed. doxycycline monohydrate 100 mg oral capsule (10 sources) Tetracycline-class Drug Start: 06-06-2021 End: 07-01-2021 take 1 capsule by mouth twice daily doxycycline monohydrate (MONODOX) 100 mg capsule TAKE 1 CAPSULE BY MOUTH TWICE A DAY FOR 10 DAYS 0 06/06/2021 07/01/2021 Discontinued Comment on above: TAKE 1 CAPSULE BY [facility] TWICE A DAY FOR 10 DAYS DULoxetine 30 mg delayed release oral capsule (19 sources) Serotonin and Norepinephrine Reuptake Inhibitor Start: 01-28-2022 take 1 capsule by mouth once daily DULoxetine (CYMBALTA) 30 mg capsule TAKE 1 CAPSULE BY MOUTH EVERY DAY DO NOT CRUSH OR CHEW 0 01/28/2022 Active Start: 2021 Cymbalta Oral, Refills(s) 0 Start Date: 12/21/21 Status: Ordered Comment on above: TAKE 1 CAPSULE BY [facility] EVERY DAY DO NOT CRUSH OR CHEW 1 ml EPINEPHrine 1 mg/ml injection (20 sources) alpha-Adrenergic Agonist, beta-Adrenergic Agonist, Catecholamine Start: 09-05-2021 End: 09-05-2021 EPINEPHrine PF 1 MG/ML injection Start: 06-04-2021 EPINEPHrine (E PIPEN 2-ERMA) 0.3 MG/0.3ML SOAJ injection Inject 0.3 mLs into the muscle once as needed (severe allergic reaction) 2 each 1 06/04/2021 Active EPINEPHrine 0.1 mg/0.1 mL AutoInjector as needed. 0 Active End: 06-04-2021 EPINEPHrine (EPIPEN IJ) Inje ct as directed 0 06/04/2021 Discontinued (LIST CLEANUP) EPINEPHrine (EPI PEN IJ) Inject as directed 0 Active Comment on above: as needed. EPINEPHrine (EPINEPHrine HCL) 1 mg/mL injection 0.3 mg (1 source) Start: 09-05-2021 End: 09-05-2021 EPINEPHrine (EPINEPHrine HCL) 1 mg/mL injection 0.3 mg 168 hr estradiol 0.38083 mg/hr transdermal system (4 sources) Estrogen Start: 08-30-2020 End: 06-10-2021 estradiol (CLIMARA) 0.05 mg/24 hr APPLY 1 PATCH TOPICALLY TO THE SKIN ONCE PER WEEK 0 08/30/2020 06/10/2021 Discontinued End: 11-01-2020 take 1 tablet by mouth once daily estradiol (ESTRACE) 1 MG tablet Take 1 mg by mouth daily 0 11/01/2020 Discontinued (Therapy completed) Comment on above: APPLY 1 PATCH TOPICA LLY TO THE SKIN ONCE PER WEEK estrogens, conjugated (long-term) 0.625 mg oral tablet (3 sources) Estrogen End: 05-20-2021 take 1 tablet by mouth once daily estrogens, conjugated, (PREMARIN) 0.625 MG tablet Take 0.625 mg by mouth daily 0 05/20/2021 Discontinued (LIST CLEANUP) famotidine (PEPCID) 20 mg in sodium chloride (PF) 10 mL injection (2 sources) Start: 09-05-2021 End: 09-05-2021 famotidine (PEPCID) 20 mg in sodium chloride (PF) 10 mL injection Start: 06-04-2021 End: 06-04-2021 famotidine (PEPCID) 20 mg in sodium chloride (PF) 10 mL injection Flaxseed Oil oil (20 sources) End: 03-10-2022 take 1000 mg by mouth once daily Flaxseed Oil oil Take 1,000 mg by mouth once daily. 0 03/10/2022 Discontinued (Discontinued by Patient) take 1000 mg by mouth once daily Flaxseed Oil oil Take 1,000 mg by mouth once daily. 0 Active Flaxseed Oil oil Comment on above: Take 1,000 mg by shaji th once daily. fluconazole 150 mg oral tablet (10 sources) Azole Antifungal Start: 06-06-2021 End: 07-01-2021 fluconazole (DIFLUCAN) 150 mg tablet TAKE 1 TABLET BY MOUTH ONCE AND REPEAT IN 3 DAYS IF NEEDED 0 06/06/2021 07/01/2021 Discontinued Comment on above: TAKE 1 TABLET BY SHAJI TH ONCE AND REPEAT IN 3 DAYS IF NEEDED formoterol fumarate 0.01 mg/ml inhalation solution (1 source) beta2-Adrenergic Agonist Start: 10-31-2021 End: 11-03-2021 take 2 mL by inhalation every twelve hours formoterol fumarate (PERFOROMIST) 20 mcg/2 mL nebu Indications: Post-acute sequelae of COVID-19 (PASC) , Chronic cough , SOB (shortness of breath) , Moderate persistent asthma without complication Inhale 2 mL as instructed every 12 hours. 120 mL 5 10/31/2021 11/03/2021 Discontinued Comment on above: Inhale 2 mL as instr ucted every 12 hours. furosemide 40 mg oral tablet (6 sources) Loop Diuretic End: 06-10-2021 furosemide (LASIX) 40 mg tablet Take 40 mg by mouth. 0 06/10/2021 Discontinued Comment on above: Take 40 mg by mouth. 1 ml galcanezumab-gnlm 120 mg/ml prefilled syringe (20 sources) Start: 09-05-2021 End: 10-19-2021 inject 1 mL by subcutaneous injection every month galcanezumab-gnlm (EMGALITY SYRINGE) 120 mg/mL syringe Indications: Chronic migraine without aura, intractable, without status migrainosus Inject 1 mL subcutaneously once every month. Do not shake. 1 Each 09/05/2021 10/19/2021 Discontinued (Side Effects) Start: 09-05-2021 inject 1 mL by subcu taneous injection every month galcanezumab-gnlm (EMGALITY SYRINGE) 120 mg/mL syringe Indications: Chronic migraine without aura, intractable, without status migrainosus Inject 1 mL subcutaneously once every month. Do not shake. 1 Each 09/05/2021 Active Start: 09-05-2021 inject 1 mL by subcu taneous injection every month galcanezumab-gnlm (EMGALITY SYRINGE) 120 mg/mL syringe Indications: Chronic migraine without aura, intractable, without status migrainosus Inject 1 mL subcutaneously once every month. Do not shake. 1 Each 09/05/2021 Active Start: 09-05-2021 inject 1 mL by subcu taneous injection every month galcanezumab-gnlm (EMGALITY SYRINGE) 120 mg/mL syringe Indications: Chronic migraine without aura, intractable, without status migrainosus Inject 1 mL subcutaneously once every month. Do not shake. 1 Each 09/05/2021 Active Start: 09-05-2021 inject 1 mL by subcu taneous injection every month galcanezumab-gnlm (EMGALITY SYRINGE) 120 mg/mL syringe Indications: Chronic migraine without aura, intractable, without status migrainosus Inject 1 mL subcutaneously once every month. Do not shake. 1 Each 09/05/2021 Active Start: 09-05-2021 inject 1 mL by subcu taneous injection every month galcanezumab-gnlm (EMGALITY SYRINGE) 120 mg/mL syringe Indications: Chronic migraine without aura, intractable, without status migrainosus Inject 1 mL subcutaneously once every month. Do not shake. 1 Each 09/05/2021 Active Start: 09-05-2021 inject 1 mL by subcu taneous injection every month galcanezumab-gnlm (EMGALITY SYRINGE) 120 mg/mL syringe Indications: Chronic migraine without aura, intractable, without status migrainosus Inject 1 mL subcutaneously once every month. Do not shake. 1 Each 09/05/2021 Active Start: 09-05-2021 inject 1 mL by subcu taneous injection every month galcanezumab-gnlm (EMGALITY SYRINGE) 120 mg/mL syringe Indications: Chronic migraine without aura, intractable, without status migrainosus Inject 1 mL subcutaneously once every month. Do not shake. 1 Each 09/05/2021 Active Start: 09-05-2021 inject 1 mL by subcu taneous injection every month galcanezumab-gnlm (EMGALITY SYRINGE) 120 mg/mL syringe Indications: Chronic migraine without aura, intractable, without status migrainosus Inject 1 mL subcutaneously once every month. Do not shake. 1 Each 09/05/2021 Active Start: 09-05-2021 inject 1 mL by subcu taneous injection every month galcanezumab-gnlm (EMGALITY SYRINGE) 120 mg/mL syringe Indications: Chronic migraine without aura, intractable, without status migrainosus Inject 1 mL subcutaneously once every month. Do not shake. 1 Each 09/05/2021 Active Start: 09-05-2021 inject 1 mL by subcu taneous injection every month galcanezumab-gnlm (EMGALITY SYRINGE) 120 mg/mL syringe Indications: Chronic migraine without aura, intractable, without status migrainosus Inject 1 mL subcutaneously once every month. Do not shake. 1 Each 09/05/2021 Active Start: 09-05-2021 inject 1 mL by subcu taneous injection every month galcanezumab-gnlm (EMGALITY SYRINGE) 120 mg/mL syringe Indications: Chronic migraine without aura, intractable, without status migrainosus Inject 1 mL subcutaneously once every month. Do not shake. 1 Each 09/05/2021 Active Start: 09-05-2021 inject 1 mL by subcu taneous injection every month galcanezumab-gnlm (EMGALITY SYRINGE) 120 mg/mL syringe Indications: Chronic migraine without aura, intractable, without status migrainosus Inject 1 mL subcutaneously once every month. Do not shake. 1 Each 09/05/2021 Active Start: 08-05-2021 End: 10-19-2021 galcanezumab-gnlm (EMGALITY SYRINGE) 120 mg/mL syringe Indications: Chronic migraine without aura, intractable, without status migrainosus Inject 2 mL subcutaneously once every month. Inject two pens the first month as a loading dose. Do not shake. 2 Each 0 08/05/2021 10/19/2021 Discontinued (Course of therapy completed) Comment on above: Inject 2 mL subcutan eously once every month. Inject two pens the first month as a loading dose. Do not shake. Inject 1 mL subcutan eously once every month. Do not shake. ketorolac tromethamine 10 mg oral tablet (4 sources) Nonsteroidal Anti-inflammatory Drug, Cyclooxygenase Inhibitor Start: 08-17-2020 End: 06-10-2021 take 1 tablet by mouth four times daily as needed keTORolac (TORADOL) 10 mg tablet TAKE 1 TABLET BY MOUTH FOUR TIMES A DAY NEEDED 0 08/17/2020 06/10/2021 Discontinued Start: 06-13-2020 End: 06-13-2020 ketorolac (TORADOL) injectio n 30 mg Comment on above: TAKE 1 TABLET BY SHAJI TH FOUR TIMES A DAY NEEDED lidocaine 0.05 mg/mg medicated patch (13 sources) Antiarrhythmic, Amide Local Anesthetic Start: 06-13-2020 End: 07-01-2021 lidocaine (LIDODERM) 5 % PLACE 1 PATCH TOPICALLY ON THE SKIN DAILY FOR 10 DAYS. LEAVE ON 12 HOURS, THEN LEAVE OFF 12 HOURS. 0 06/13/2020 07/01/2021 Discontinued Comment on above: PLACE 1 PATCH TOPICA LLY ON THE SKIN DAILY FOR 10 DAYS. LEAVE ON 12 HOURS, THEN LEAVE OFF 12 HOURS. Magnesium (20 sources) Magnesium 250 mg tab Take 250 mg by mouth. 0 Active Comment on above: Take 250 mg by mouth . mecobalamin 1 mg sublingual tablet (20 sources) Start: 04-05-2021 mecobalamin, v itamin B12, 1,000 mcg ODT once daily. 0 04/05/2021 Active Comment on above: once daily. metFORMIN hydrochloride 500 mg oral tablet (6 sources) Biguanide End: 06-10-2021 metFORMIN (GLUCOPHAGE) 500 mg tablet Take 500 mg by mouth. 0 06/10/2021 Discontinued Comment on above: Take 500 mg by mouth . methylPREDNISolone 125 mg injection (3 sources) Corticosteroid Start: 09-05-2021 End: 09-05-2021 methylPREDNISolone sodium (SOLU-MEDROL) injection 60 mg Start: 06-04-2021 End: 06-04-2021 methylPREDNISolone sodium (S DARION-MEDROL) injection 125 mg Start: 06-13-2020 End: 06-19-2020 methylPREDNISolone (MEDROL, ERMA,) 4 MG tablet Take by mouth. 1 kit 0 06/13/2020 06/19/2020 Active montelukast 10 mg oral tablet (20 sources) Leukotriene Receptor Antagonist Start: 01-19-2014 take 1 tablet by mouth once daily montelukast (SINGULAIR) 10 mg tablet Take 10 mg by mouth once daily. 0 01/19/2014 Active Comment on above: Take 10 mg by mouth once daily. 1 ml morphine sulfate 2 mg/ml cartridge (1 source) Opioid Agonist Start: 05-20-2021 End: 05-20-2021 morphine (PF) injection 2 mg 2 ml ondansetron 2 mg/ml injection (6 sources) Serotonin-3 Receptor Antagonist Start: 04-16-2021 End: 04-16-2021 ondansetron (ZOFRAN) injection 4 mg Start: 04-16-2021 End: 04-16-2021 ondansetron (ZOFRAN) 4 MG/2M L injection End: 06-10-2021 ondansetron orally disintegr ating (ZOFRAN ODT) 4 mg disintegrating tablet ondansetron 4 mg disintegrating tablet 0 06/10/2021 Discontinued (Discontinued by Patient) take 1 tablet by shaji th every eight hours as needed for nausea ondansetron (ZOFRAN) 4 MG tablet Take 4 mg by mouth every 8 hours as needed for Nausea or Vomiting 0 Active Comment on above: ondansetron 4 mg dis integrating tablet 2 ml orphenadrine citrate 30 mg/ml injection (1 source) Muscle Relaxant Start: 06-21-2021 End: 06-21-2021 orphenadrine (NORFLEX) injection 60 mg prazosin 5 mg oral capsule (20 sources) alpha-Adrenergi c Tej Start: 06-29-2021 End: 04-18-2022 take 1 capsule by mouth once daily at bedtime prazosin (MINIPRESS) 5 mg cap Take 5 mg by mouth daily at bedtime. 0 06/29/2021 04/18/2022 Discontinued Comment on above: Take 5 mg by mouth d aily at bedtime. rimegepant 75 mg disintegrating oral tablet (20 sources) Start: 09-28-2020 End: 07-06-2021 take 1 tablet by mouth once daily as needed, then take 1 tablet by mouth every twenty-four hours as needed rimegepant (NURTEC ODT) 75 mg disintegrating tablet Indications: Chronic migraine without aura, intractable, without status migrainosus Take 1 tablet by mouth once daily as needed. No more than 1 dose in 24 hours. 8 tablet 11 07/06/2021 Active Comment on above: Take 1 tablet by shaji th once daily as needed. Take 1 tablet by shaji th once daily as needed. No more than 1 dose in 24 hours. rOPINIRole 0.25 mg oral tablet (14 sources) Nonergot Dopamine Agonist Start: 08-24-2021 End: 10-19-2021 rOPINIRole (REQUIP) 0.25 mg tablet Take 0.25 mg by mouth. 0 08/24/2021 10/19/2021 Discontinued (Discontinued by another Health Care Provider) Comment on above: Take 0.25 mg by mout h. spironolactone 50 mg oral tablet (6 sources) Aldosterone Antagonist Start: 07-12-2020 End: 06-10-2021 take 1 tablet by mouth once daily spironolactone (ALDACTONE) 50 mg tablet Take 50 mg by mouth once daily. 0 07/12/2020 06/10/2021 Discontinued End: 05-20-2021 spironolactone (ALDACTONE) 5 0 MG tablet Take 25 mg by mouth daily 0 05/20/2021 Discontinued (LIST CLEANUP) Comment on above: Take 50 mg by mouth once daily. SUMAtriptan 50 mg oral tablet (2 sources) Serotonin-1b and Serotonin-1d Receptor Agonist End: 11-01-2020 take 2 tablets by mouth once as needed SUMAtriptan (IMITREX) 50 MG tablet Take 100 mg by mouth once as needed for Migraine 0 11/01/2020 Discontinued (Therapy completed) tiZANidine 4 mg oral tablet (4 sources) Central alpha-2 Adrenergic Agonist Start: 06-13-2020 End: 05-20-2021 take 1 tablet by mouth every eight hours as needed for pain tiZANidine (ZANAFLEX) 4 MG tablet Take 1 tablet by mouth every 8 hours as needed (Back pain) 10 tablet 0 06/13/2020 05/20/2021 Discontinued (LIST CLEANUP) ubrogepant 100 mg oral tablet (20 sources) Start: 08-25-2021 take 1 tablet by mouth every two hours as needed, then take 2 tablets by mouth every twenty-four hours as needed UBRELVY 100 mg tablet TAKE 1 TABLET BY MOUTH AT ONSET OF MIGRAINE. MAY REPEAT IN 2 HOURS NEEDED. MAX 2 TABLET IN 24 HOURS 0 08/25/2021 Active Start: 08-24-2021 take 1 tablet by shaji th once as needed Ubrogepant (UBRELVY) 100 MG TABS Take 100 mg by mouth once as needed 0 08/24/2021 Active Comment on above: TAKE 1 TABLET BY SHAJI TH AT ONSET OF MIGRAINE. MAY REPEAT IN 2 HOURS NEEDED. MAX 2 TABLET IN 24 HOURS Zinc (20 sources) End: 10-02-2022 Zinc 50 mg tab Take by mouth . 0 10/02/2022 Discontinued Zinc 50 mg tab T kana by mouth. 0 Active Comment on above: Take by mouth. Problems Active Problems Problem Classification Problem Date Documented Da te Episodic/Chronic Abdominal hernia (4 sources) Right inguinal hernia 12-16-2021 Episodic Abdominal pain (15 sources) Right lower quadrant pain; Translations: [Right lower quadrant pain] Onset: 2 Episodic Anxiety disorders (15 sources) Anxiety; Translations: [Anxiety disorder, unspecified] Onset: 2 Chronic Asthma (20 sources) Exacerbation of moderate persistent asthma; Translations: [Moderate persistent asthma with (acute) exacerbation] Onset: 2 Chronic Calculus of urinary tract (2 sources) Kidney stone; Translations: [Calculus of kidney] Onset: 3 Episodic Cardiac dysrhythmias (2 sources) Sick sinus syndrome; Translations: [Sick sinus syndrome] Onset: 3 Chronic Chronic obstructive pulmonary disease and bronchiectasis (1 source) Bronchitis, not specified as acute or chronic; Translations: [Bronchitis, not specified as acute or chronic] Onset: 3 Episodic Coagulation and hemorrhagic disorders (20 sources) Blood coagulation disorder; Translations: [Coagulation defect, unspecified] Onset: 5 02-23-2014 Chronic Conditions associated with dizziness or vertigo (20 sources) Orthostatic hypotension; Translations: [Dizziness and giddiness] Onset: 2 05-24-2021 Episodic Diabetes mellitus with complications (5 sources) Type 2 diabetes mellitus with hyperglycemia; Translations: [TYPE 2 DM W/HYPERGLYCEMIA] Onset: 2 Chronic Diabetes mellitus without complication (5 sources) Type 2 diabetes mellitus; Translations: [Diabetes mellitus] Onset: 2 12-16-2021 Chronic Esophageal disorders (20 sources) Gastroesophageal reflux disease; Translations: [Gastro-esophageal reflux disease without esophagitis] Onset: 2 Chronic Essential hypertension (1 source) Hypertensive disorder; Translations: [Essential (primary) hypertension] Chronic Genitourinary symptoms and ill-defined conditions (4 sources) Stress incontinence (female) (male); Translations: [Genuine stress incontinence] Onset: 2 Chronic Genitourinary symptoms and ill-defined conditions (16 sources) Blood in urine; Translations: [Gross hematuria] Onset: 2 Episodic Headache; including migraine (8 sources) Chronic intractable migraine without aura; Translations: [Chronic migraine without aura, intractable, without status migrainosus] Onset: 2 Chronic Headache; including migraine (2 sources) Headache; Translations: [Worsening headaches] Episodic Headache; including migraine (4 sources) Headache; including migraine; Translations: [HEADACHE UNSPECIFIED] Onset: 2 Inflammatory diseases of female pelvic organs (1 source) Hydrosalpinx; Translations: [Chronic salpingitis] Chronic Mood disorders (3 sources) Depressive disorder; Translations: [Depression, unspecified depression type] Chronic Nausea and vomiting (1 source) Intractable nausea and vomiting; Translations: [Nausea with vomiting, unspecified] Episodic Nonspecific chest pain (9 sources) Chest pain; Translations: [Chest pain, unspecified] Onset: 3 Episodic Nutritional deficiencies (5 sources) Vitamin D deficiency; Translations: [Vitamin D deficiency, unspecified] Onset: 3 12-16-2021 Chronic Other aftercare (1 source) 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; Translations: [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] Onset: 3 Episodic Other and unspecified benign neoplasm (1 source) Benign lipomatous tumor; Translations: [Benign lipomatous neoplasm, unspecified] Onset: 3 Episodic Other and unspecified benign neoplasm (1 source) Lipoma (clinical) 09-05-2022 Episodic Other bone disease and musculoskeletal deformities (1 source) Bone pain; Translations: [Other specified disorders of bone, unspecified site] Episodic Other circulatory disease (2 sources) Presence of other cardiac implants and grafts; Translations: [Presence of other cardiac implants and grafts] Onset: 3 Chronic Other circulatory disease (1 source) Labile hypertension due to being in a clinical environment; Translations: [Elevated blood-pressure reading, without diagnosis of hypertension] Episodic Other circulatory disease (20 sources) Orthostatic hypotension; Translations: [Orthostatic hypotension] Onset: 2 Episodic Other connective tissue disease (3 sources) Spasm; Translations: [Other muscle spasm] Episodic Other connective tissue disease (1 source) Diastasis recti; Translations: [Separation of muscle (nontraumatic), other site] Episodic Other connective tissue disease (6 sources) Muscle pain; Translations: [Myalgia, unspecified site] Episodic Other diseases of bladder and urethra (3 sources) Male urethral stricture; Translations: [Unspecified urethral stricture, male, unspecified site] Onset: 2 Episodic Other diseases of bladder and urethra (2 sources) Urethral stricture 02-27-2022 Episodic Other female genital disorders (4 sources) Pain in female genitalia on intercourse 12-16-2021 Chronic Other gastrointestinal disorders (2 sources) Celiac disease; Translations: [Celiac disease] Onset: 3 Chronic Other hereditary and degenerative nervous system conditions (2 sources) Akathisia; 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 Other hereditary and degenerative nervous system conditions (1 source) Chorea; 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 Other hereditary and degenerative nervous system conditions (1 source) Restless legs; Translations: [Restless legs syndrome] Chronic Other hereditary and degenerative nervous system conditions (1 source) Other specified extrapyramidal and movement disorders; Translations: [OTH SPEC EXTRAPYRAMIDAL MOVEMNT D/O] Onset: 2 Chronic Other infections; including parasitic (11 sources) Late effects of other and unspecified infectious and parasitic diseases; 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] Chronic Other infections; including parasitic (8 sources) Personal history of other infectious and parasitic diseases; Translations: [History of COVID-19] Episodic Other injuries and conditions due to external causes (1 source) Angioedema; Translations: [Angioneurotic edema, initial encounter] Episodic Other lower respiratory disease (7 sources) Dyspnea; Translations: [Shortness of breath] Episodic Other lower respiratory disease (6 sources) Chronic cough; Translations: [Chronic cough] Episodic Other lower respiratory disease (6 sources) Dyspnea on exertion; Translations: [Other forms of dyspnea] Episodic Other lower respiratory disease (6 sources) Orthopnea; Translations: [Orthopnea] Episodic Other nervous system disorders (20 sources) Arachnoid cyst of pituitary; Translations: [Cerebral cysts] Onset: 6 04-07-2015 Chronic Other nervous system disorders (1 source) Disorder of autonomic nervous system; Translations: [Disorder of the autonomic nervous system, unspecified] Chronic Other nervous system disorders (1 source) Circadian rhythm sleep disorder of shift work type; Translations: [Circadian rhythm sleep disorder, 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 Other nervous system disorders (4 sources) Arachnoid cyst 12-16-2021 Chronic Other nervous system disorders (1 source) Demyelinating disease of central nervous system, unspecified; Translations: [Demyelinating disease of central nervous system (HCC)] Onset: 2 Chronic Other nervous system disorders (1 source) Circadian rhythm sleep disorder, shift work type; Translations: [Shift work sleep disorder] Onset: 2 Chronic Other nervous system disorders (2 sources) Disorder of the autonomic nervous system, unspecified; Translations: [Disorder of the autonomic nervous system, unspecified] Onset: 3 Chronic Other nervous system disorders (5 sources) Abnormal involuntary movement; Translations: [Unspecified abnormal involuntary movements] Episodic Other non-traumatic joint disorders (6 sources) Multiple joint pain; Translations: [Pain in unspecified joint] Episodic Other nutritional; endocrine; and metabolic disorders (1 source) Drug-induced obesity; Translations: [Drug-induced obesity] Chronic Other skin disorders (7 sources) Night sweats; Translations: [Generalized hyperhidrosis] Episodic Other skin disorders (1 source) Localized swelling, mass and lump, left upper limb; Translations: [Localized superficial swelling, mass, or lump] Episodic Other skin disorders (1 source) Eruption; Translations: [Rash and other nonspecific skin eruption] Episodic Other upper respiratory disease (20 sources) Allergic rhinitis; Translations: [Allergic rhinitis, unspecified] Onset: 2 Chronic Other upper respiratory disease (1 source) Cyst of maxillary sinus; Translations: [Cyst and mucocele of nose and nasal sinus] Episodic Other upper respiratory disease (1 source) Hoarse; Translations: [Dysphonia] Episodic Ovarian cyst (5 sources) Cyst of left ovary; Translations: [Unspecified ovarian cyst, left side] Episodic Residual codes; unclassified (1 source) Obstructive sleep apnea syndrome; Translations: [Obstructive sleep apnea (adult) (pediatric)] Chronic Residual codes; unclassified (1 source) Sleep paralysis; Translations: [Other sleep disorders] Chronic Residual codes; unclassified (1 source) Poor sleep pattern; Translations: [Other sleep disorders] Chronic Residual codes; unclassified (1 source) Obstructive sleep apnea (adult) (pediatric); Translations: [KATELIN on CPAP] Onset: 2 Chronic Residual codes; unclassified (1 source) Dependence on other enabling machines and devices; Translations: [KATELIN on CPAP] Onset: 2 Chronic Residual codes; unclassified (1 source) Other sleep disorders; Translations: [Poor sleep pattern] Onset: 2 Chronic Residual codes; unclassified (1 source) Unable to comply with treatment; Translations: [Patient's other noncompliance with medication regimen] Episodic Residual codes; unclassified (1 source) Did not attend; Translations: [No-show for appointment] Episodic Screening and history of mental health and substance abuse codes (1 source) History of post-traumatic stress disorder; Translations: [Personal history of other mental and behavioral disorders] Episodic Syncope (8 sources) Near syncope; Translations: [Syncope and collapse] Onset: 3 Episodic Thyroid disorders (20 sources) Hypothyroidism, unspecified; Translations: [Unspecified acquired hypothyroidism] Onset: 2 Chronic Unclassified (2 sources) X; Translations: [X] Onset: 2 Unclassified (2 sources) History of COVID-19; Translations: [History of COVID-19] Onset: 2 Unclassified (3 sources) LOW BACK PAIN, UNSPECIFIED; Translations: [LOW BACK PAIN, UNSPECIFIED] Onset: 3 Unclassified (1 source) POST COVID-19 CONDITION UNSPECIFIED; Translations: [POST COVID-19 CONDITION UNSPECIFIED] Onset: 2 Unclassified (1 source) CONTACT W/AND (SUSP) EXPOS COVID-19; Translations: [CONTACT W/AND (SUSP) EXPOS COVID-19] Onset: 2 Unclassified (1 source) No-show for appointment; Translations: [No-show for appointment] Onset: 3 Unclassified (1 source) Post covid-19 condition, unspecified; Translations: [Post covid-19 condition, unspecified] Onset: 3 Viral infection (3 sources) Disease caused by 2019-nCoV; Translations: [COVID-19] Onset: 2 Episodic Past or Other Problems Problem Classification Problem Date Documented Date Episodic/Chronic Allergic reactions (20 sources) Urticaria; Translations: [Urticaria, unspecified] Onset: 07-25-2021 Episodic Blindness and vision defects (20 sources) Diplopia; Translations: [Diplopia] Onset: 05-24-2021 05-24-2021 Episodic Cardiac dysrhythmias (20 sources) Bradycardia; Translations: [Bradycardia, unspecified] Onset: 05-24-2021 05-24-2021 Episodic Coagulation and hemorrhagic disorders (16 sources) Blood coagulation disorder; Translations: [Hemorrhagic condition, unspecified] Onset: 02-23-2014 Episodic Diabetes mellitus without complication (1 source) Prediabetes; Translations: [PREDIABETES] Onset: 11-16-2021 Episodic E Codes: Adverse effects of medical drugs (20 sources) Adverse reaction to drug; Translations: [Adverse effect of unspecified drugs, medicaments and biological substances, initial encounter] Onset: 07-25-2021 Episodic Immunizations and screening for infectious disease (1 source) Encounter for screening for human papillomavirus (HPV); Translations: [ENC SCREENING HUMAN PAPILLOMAVIRUS] Onset: 08-04-2021 Episodic Lymphadenitis (4 sources) Lymphadenopathy; Translations: [Generalized enlarged lymph nodes] Onset: 11-16-2021 Episodic Malaise and fatigue (20 sources) Malaise and fatigue; Translations: [Other malaise] Onset: 05-24-2021 05-24-2021 Episodic Nonmalignant breast conditions (2 sources) Unspecified lump in axillary tail of the left breast; Translations: [Unspecified lump in axillary tail of the right breast] Onset: 10-23-2021 Episodic Other circulatory disease (20 sources) Labile blood pressure; Translations: [Other disorder of circulatory system] Onset: 05-24-2021 05-24-2021 Episodic Other circulatory disease (3 sources) Other disorder of circulatory system; Translations: [Blood pressure instability] Onset: 05-24-2021 Episodic Other connective tissue disease (20 sources) Subjective muscle weakness; Translations: [Muscle weakness (generalized)] Onset: 05-24-2021 05-24-2021 Episodic Other lower respiratory disease (1 source) Dyspnea, unspecified; Translations: [Dyspnea, unspecified] Onset: 01-08-2022 Episodic Other screening for suspected conditions (not mental disorders or infectious disease) (20 sources) Patient encounter status; Translations: [Encounter for screening for other suspected endocrine disorder] Onset: 06-14-2021 Episodic Other skin disorders (4 sources) Localized swelling, mass and lump, upper limb, bilateral; Translations: [LOC SWELL MASS LUMP UP LIMB LARS] Onset: 10-19-2021 Episodic Residual codes; unclassified (20 sources) Diffuse pain; Translations: [Pain, unspecified] Onset: 08-23-2021 Episodic Residual codes; unclassified (20 sources) Physical activity finding; Translations: [Other general symptoms and signs] Onset: 08-23-2021 Episodic Residual codes; unclassified (1 source) Acquired absence of both cervix and uterus; Translations: [ACQUIRED ABSENCE BOTH CERVIX AND UTERUS] Onset: 11-16-2021 Episodic Residual codes; unclassified (1 source) Family history of malignant neoplasm of other genital organs; Translations: [FAM HX MALIG NEOPLSM OTH GENIT ORGN] Onset: 10-23-2021 Episodic Spondylosis; intervertebral disc disorders; other back problems (1 source) Pain in thoracic spine; Translations: [PAIN IN THORACIC SPINE] Onset: 02-15-2022 Episodic Sprains and strains (2 sources) Low back strain; Translations: [Strain of muscle, fascia and tendon of lower back, initial encounter] Onset: 01-30-2022 Episodic Unclassified (1 source) LOW BACK PAIN, UNSPECIFIED; Translations: [LOW BACK PAIN, UNSPECIFIED] Onset: 02-15-2022 Unclassified (1 source) Post covid-19 condition, unspecified; Translations: [Post covid-19 condition, unspecified] Onset: 05-24-2022 Results Test Name Value Interpretation Reference Range Facil ity Office Visiton 01-10-2023 Follow-up visit [id number] Megan Tran 1985 F Date Provider Department Center 01/10/2023 MACRINA FISCHER [facility] Family History Problem Relation Age of Onset Other Mother Hypertension Mother Heart failure Mother Diabetes Mother Skin cancer Mother Coronary artery disease Mother Heart attack Mother Comments: 52 Heart disease Mother Kidney disease Mother Stroke Mother Diabetes type II Mother Heart disease Father Comments: 57 Heart attack Father Heart murmur Father Diabetes type II Sister Hypertension Sister Cesar's thyroiditis Mother's Sister Aortic aneurysm Maternal Grandmother Comments: 60 Other Son Fainting Son Asthma Son Family Status - Relation Status Age at Mother Father Sister Mother's Sister Maternal Grandmother Son Alive Son Alive Son Alive Level of Service:[id number] ME OFFICE/OUTPATIENT ESTABLISHED LOW MDM 20-29 MIN [facility] Insurance Correspondenceon 1 03-11-2022 Insurance Correspondence [id number] Normal [facility] Ambulatory Visit Summaryon 1 1-30-2023 Ambulatory Visit Summary LEANA TRAN :1985 Visit Date:01/04/2023 Ambulatory Visit Instructions Your Diagnosis GERD (gastroesophageal reflux disease) BMI 38.0-38.9,adult Your Care Team Attending Physician - MARLON PEREZ, Tesfaye Almonte Primary Care Physician - GRAYSON PEREZ, CAS Referring Physician - CAS DOWELL MD This Is Your Medications List Contact prescribing physician if questions or concerns baclofen budesonide-formoterol (Symbicort 160/4.5 inhalation aerosol with adapter) cholecalciferol (Vitamin D3) duloxetine (Cymbalta 60 mg Cap-DR) epinephrine (EpiPen 2-Erma) fluticasone nasal (Flonase Allergy Relief 50 mcg/inh nasal spray) fremanezumab (Ajovy Autoinjector) lamotrigine (lamotrigine 150 mg Tab) levothyroxine (Synthroid 112 mcg Tab) linagliptin (Tradjenta 5 mg oral tablet) magnesium oxide (magnesium oxide 400 mg Tab) montelukast (Singulair 10 mg Tab) pantoprazole (Pantoprazole [address] Tab) rimegepant (Nurtec ODT) sertraline (sertraline 100 mg Tab) tamsulosin (tamsulosin 0.4 mg Cap) ubrogepant (Ubrelvy) zonisamide (zonisamide 100 mg Cap) Procedures Performed Cystourethroscopy with dilation of urethral stricture (01/23/2022), Abdominal hysterectomy (03/17/2019), Salpingectomy (03/17/2019), Laparoscopic cholecystostomy (04/08/2009), Appendectomy, delivery, Colonoscopy, EGD - esophagogastroduodenoscopy, Endometrial ablation, Insertion of electrocardiography loop recorder using fluoroscopic guidance, Laparoscopic lysis of adhesions, Nasal septoplasty, Tubal ligation, Tympanostomy. Discharge Vitals Heart Rate (Peripheral) 93 Respiratory Rate 16 Blood Pressure 123/81 Height 162 cm Height 64 in Weight 100.5 kg Weight 221.1 lb BMI 38.29 What to do next Scheduled Follow-Up Appointments Sunday 9:00 AM EDT With: TEJ HEREDIA, LORAINE Razo Where: [facility] [place] Normal Fis her [facility] Ambulatory Visit Summary LEANA TRAN :1985 Visit Date:01/04/2023 Ambulatory Visit Instructions Your Diagnosis GERD (gastroesophageal reflux disease) BMI 38.0-38.9,adult Your Care Team Attending Physician - MARLON PEREZ, Tesfaye Almonte Primary Care Physician - CAS DOWELL MD Referring Physician - CAS DOWELL MD This Is Your Medications List Contact prescribing physician if questions or concerns baclofen budesonide-formoterol (Symbicort 160/4.5 inhalation aerosol with adapter) cholecalciferol (Vitamin D3) duloxetine (Cymbalta 60 mg Cap-DR) epinephrine (EpiPen 2-Erma) fluticasone nasal (Flonase Allergy Relief 50 mcg/inh nasal spray) fremanezumab (Ajovy Autoinjector) lamotrigine (lamotrigine 150 mg Tab) levothyroxine (Synthroid 112 mcg Tab) linagliptin (Tradjenta 5 mg oral tablet) magnesium oxide (magnesium oxide 400 mg Tab) montelukast (Singulair 10 mg Tab) pantoprazole (Pantoprazole [address] Tab) rimegepant (Nurtec ODT) sertraline (sertraline 100 mg Tab) tamsulosin (tamsulosin 0.4 mg Cap) ubrogepant (Ubrelvy) zonisamide (zonisamide 100 mg Cap) Procedures Performed Cystourethroscopy with dilation of urethral stricture (01/23/2022), Abdominal hysterectomy (03/17/2019), Salpingectomy (03/17/2019), Laparoscopic cholecystostomy (04/08/2009), Appendectomy, delivery, Colonoscopy, EGD - esophagogastroduodenoscopy, Endometrial ablation, Insertion of electrocardiography loop recorder using fluoroscopic guidance, Laparoscopic lysis of adhesions, Nasal septoplasty, Tubal ligation, Tympanostomy. Discharge Vitals Heart Rate (Peripheral) 93 Respiratory Rate 16 Blood Pressure 123/81 Height 162 cm Height 64 in Weight 100.5 kg Weight 221.1 lb BMI 38.29 What to do next Scheduled Follow-Up Appointments Sunday 9:00 AM EDT With: LROAINE RUBALCAVA PA-C Where: [facility] Normal [facility] Consent for Procedure/Surger yon 01-04-2023 Consent for Procedure/Surgery [id number] [facility] Office Visiton 01-01-2023 Follow-up visit [id number] Megan Tran 1985 F Date Provider Department Center 01/01/2023 ANGELIKA SUTTON CARD [facility] Family History Problem Relation Age of Onset Other Mother Hypertension Mother Heart failure Mother Diabetes Mother Skin cancer Mother Coronary artery disease Mother Heart attack Mother Comments: 52 Heart disease Mother Kidney disease Mother Stroke Mother Diabetes type II Mother Heart disease Father Comments: 57 Heart attack Father Heart murmur Father Diabetes type II Sister Hypertension Sister Cesar's thyroiditis Mother's Sister Aortic aneurysm Maternal Grandmother Comments: 60 Other Son Fainting Son Asthma Son Family Status - Relation Status Age at Mother Father Sister Mother's Sister Maternal Grandmother Son Alive Son Alive Son Alive Level of Service:15054 ME OFFICE/OUTPATIENT ESTABLISHED SF MDM 10-19 MIN Normal [facility] 36on 12-25-2022 36 Pt calls stating yareli t she was seen 12/18 at ER for Chest pain an EKG was done and she would like to discuss her results. Normal [facility] Telephoneon 12-25-2022 Telephone [id number] Megan Tran 1985 F Date Provider Department Center 12/25/2022 MACRINA FISCHER [facility] CARD [place] [facility] Family History Problem Relation Age of Onset Other Mother Hypertension Mother Heart failure Mother Diabetes Mother Skin cancer Mother Coronary artery disease Mother Heart attack Mother Comments: 52 Heart disease Mother Kidney disease Mother Stroke Mother Diabetes type II Mother Heart disease Father Comments: 57 Heart attack Father Heart murmur Father Diabetes type II Sister Hypertension Sister Cesar's thyroiditis Mother's Sister Aortic aneurysm Maternal Grandmother Comments: 60 Other Son Fainting Son Asthma Son Family Status - Relation Status Age at Mother Father Sister Mother's Sister Maternal Grandmother Son Alive Son Alive Son Alive Normal [facility] XR CHEST PORTABLEon 12-20-19 23 XR CHEST PORTABLE EXAMINATION: ONE XRAY VIEW OF THE CHEST 12/18/2022 4:19 pm COMPARISON: 01/08/2022 HISTORY: ORDERING SYSTEM PROVIDED HISTORY: chest pain TECHNOLOGIST PROVIDED HISTORY: chest pain FINDINGS: Presumed loop recorder device projects over the left chest. Heart size and pulmonary vessels are within normal limits. Aside from minimal subsegmental atelectasis at the left lung base lungs remain essentially clear. No new focal infiltrates are seen. No significant pleural effusions. Subtle lucencies in the right supraclavicular region are probably related to the patient's hair. Slightly elevated right hemidiaphragm. IMPRESSION: Minimal left basilar atelectasis. Interpreted by: Juan Kidd MD Signed by: Juan Kidd MD 12/19/22 Final result Normal [facility] l Basic Metabolic Profon 12-18 Anion gap [Moles/Vol] 10 mmol/L Normal 9-17 [facility] Comment on above: Performed By: #### B ANTHONY DRAPER TROPI #### [facility] [address] [place] [address] [place] [address] Probate Judge: Belén Dale MD BUN/CRE Ratio 12 Normal 9-20 [facility] Comment on above: Performed By: #### B ANTHONY DRAPER, TROPI #### [address] [place] [address] Probate Judge: Belén Dale MD Calcium [Mass/Vol] 9.5 mg/dL Normal 8.6-10.4 [facility] Comment on above: Performed By: #### B ANTHONY DRAPER, TROPI #### [facility] [address] [place] [address] [place] [address] Probate Judge: Belén Dale MD Chloride [Moles/Vol] 102 mmol/L Normal 98-107 [facility] Comment on above: Performed By: #### B ANTHONY DRAPER, TROPI #### [facility] [address] [place] [address] [place] [address] Probate Judge: Belén Dale MD CO2 [Moles/Vol] 26 mmol/L Normal 20-31 [facility] Comment on above: Performed By: #### B ANTHONY DRAPER, TROPI #### [facility] [address] [place] [address] Probate Judge: Belén Dale MD Creatinine [Mass/Vol] 1.0 mg/dL High 0.5-0.9 [facility] Comment on above: Performed By: #### B ANTHONY DRAPER, TROPI #### [facility] [address] [place] [address] Probate Judge: Belén Dale MD GFR/1.73 sq M.predicted yogesh g non-blacks MDRD (S/P/Bld) [Vol rate/Area] mL/min/{1.73_m2} Normal >60 [facility] Comment on above: Result Comment: These results are not intended for use in patients <18 years of age. eGFR results are calculated without a race factor using the 2020 CKD-EPI equation. Careful clinical correlation is recommended, particularly when comparing to results calculated using previous equations. The CKD-EPI equation is less accurate in patients with extremes of muscle mass, extra-renal metabolism of creatine, excessive creatine ingestion, or following therapy that affects renal tubular secretion. Performed By: #### B ANTHONY DRAPER, TROPI #### [address] [place] [address] Probate Judge: Belén Dale MD Glucose [Mass/Vol] 97 mg/dL Normal 70-99 [facility] Comment on above: Performed By: #### B ANTHONY DRAPER, TROPI #### [facility] [address] [place] [address] Probate Judge: Belén Dale MD Potassium [Moles/Vol] 4.0 mmol/L Normal 3.7-5.3 [facility] Comment on above: Performed By: #### B ANTHONY DRAPER, TROPI #### [facility] [address] [place] [address] Probate Judge: Belén Dale MD Sodium [Moles/Vol] 138 mmol/L Normal 135-144 [facility] Comment on above: Performed By: #### B ANTHONY DRAPER, TROPI #### [facility] [address] [place] [address] [place] [place], [place] [id number] Probate Judge: Belén Dale MD Urea nitrogen [Mass/Vol] 12 mg/dL Normal 6-20 [facility] Comment on above: Performed By: #### B ANTHONY DRAPER, TROPI #### [facility] [address] [place] [address] [place] [place], [place] [id number] Probate Judge: Belén Dale MD CBC with Diffon 12-18-2022 Abs. Basophil 0.04 k/uL Normal 0.00-0.20 [facility] Comment on above: Performed By: #### B ANTHONY DRAPER, TROPI #### [address] [place], [place] [id number] Probate Judge: Belén Dale MD Abs.Imm.Granulocyte 0.04 k/uL Normal 0.00-0.30 [facility] Comment on above: Performed By: #### B ANTHONY DRAPER, TROPI #### [address] [place], [place] 2[address]683 Probate Judge: Belén Dale MD Abs.Neutrophil (Seg) 5.01 k/uL Normal 1.50-8.10 [facility] Comment on above: Performed By: #### B ANTHONY DRAPER, TROPI #### [facility] [address] [place] [address] [place] [place], [place] 0223383 Probate Judge: Belén Dale MD Basophils/100 WBC (Bld) 1 % Normal 0-2 [facility] Comment on above: Performed By: #### B ANTHONY DRAPER, TROPI #### [address] [place], [place] 0620283 Probate Judge: Belén Dale MD Eosinophils (Bld) [#/Vol] 0.19 10*3/uL Normal 0.00-0.4 4 [facility] Comment on above: Performed By: #### B ANTHONY DRAPER, TROPI #### [address] [place], [place] 50[address]83 Probate Judge: Belén Dale MD Eosinophils/100 WBC (Bld) 3 % Normal 1-4 [facility] Comment on above: Performed By: #### B ANTHONY DRAPER, TROPI #### [address] [place], [place] [address]83 Probate Judge: Belén Dale MD Erythrocyte distribution wid th (RBC) [Ratio] 11.6 % Low 11.8-14.4 [facility] Comment on above: Performed By: #### B ANTHONY DRAPER, TROPI #### [address] [place], [place] 6[address]83 Probate Judge: Belén Dale MD Hematocrit (Bld) [Volume fraction] 44.3 % Normal 3 6.3-47.1 [facility] Comment on above: Performed By: #### B ANTHONY DRAPER, TROPI #### [address] [place] [address] Probate Judge: Belén Dale MD Hemoglobin (Bld) [Mass/Vol] 14.8 g/dL Normal 11.9-15. 1 [facility] Comment on above: Performed By: #### B ANTHONY DRAPER, TROPI #### [address] [place] [address] Probate Judge: Belén Dale MD Immature granulocytes/100 WBC (Bld) 1 % High 0 [facility] Comment on above: Performed By: #### B ANTHONY DRAPER, TROPI #### [address] [place], [place] 2195383 Probate Judge: Belén Dale MD Lymphocytes (Bld) [#/Vol] 1.71 10*3/uL Normal 1.10-3.7 0 [facility] Comment on above: Performed By: #### B ANTHONY DRAPER, TROPI #### [address] [place] [address] Probate Judge: Belén Dale MD Lymphocytes/100 WBC (Bld) 23 % Low 24-43 [facility] Comment on above: Performed By: #### B ANTHONY DRAPER, TROPI #### [address] [place], [place] 0505483 Probate Judge: Belén Dale MD MCH (RBC) [Entitic mass] 29.0 pg Normal 25.2-33.5 [facility] Comment on above: Performed By: #### B ANTHONY DRAPER, TROPI #### [address] [place] [address] Probate Judge: Belén Dale MD MCHC (RBC) [Mass/Vol] 33.4 g/dL Normal 28.4-34.8 [facility] Comment on above: Performed By: #### B ANTHONY DRAPER, TROPI #### [address] [place] [address] Probate Judge: Belén Dale MD MCV (RBC) [Entitic vol] 86.9 fL Normal 82.6-102.9 [facility] Comment on above: Performed By: #### B ANTHONY DRAPER, TROPI #### [address] [place], [place] 4240283 Probate Judge: Belén Dale MD Monocytes (Bld) [#/Vol] 0.44 10*3/uL Normal 0.10-1.20 [facility] Comment on above: Performed By: #### B ANTHONY DRAPER, TROPI #### [address] [place] [address] Probate Judge: Belén Dale MD Monocytes/100 WBC (Bld) 6 % Normal 3-12 [facility] Comment on above: Performed By: #### B BARON CDP, TROPI #### [facility] [address] [place] [address] Probate Judge: Belén Dale MD Neutrophil (Seg) 66 % High 36-65 [facility] Comment on above: Performed By: #### B BARON CDP, TROPI #### [facility] [address] [place] [address] Probate Judge: Belén Dale MD NRBC Automated 0.0 per 100 WBC Normal 0.0 [facility] Comment on above: Performed By: #### B BARON CDP, TROPI #### [facility] [address] [place], [place] 470[address]83 Probate Judge: Belén Dale MD Platelet mean volume (Bld) [Entitic vol] 9.9 fL Normal 8.1-13.5 [facility] Comment on above: Performed By: #### B ANTHONY DRAPER, TROPI #### [address] [place], [place] [address]83 Probate Judge: Belén Dale MD Platelets (Bld) [#/Vol] 280 10*3/uL Normal 138-453 [facility] Comment on above: Performed By: #### B ANTHONY DRAPER, TROPI #### [address] [place] [address] Probate Judge: Belén Dale MD RBC (Bld) [#/Vol] 5.10 10*6/uL Normal 3.95-5.11 [facility] Comment on above: Performed By: #### B BARON CDP, TROPI #### [facility] [address] [place], [place] [address]83 Probate Judge: Belén Dale MD WBC (Bld) [#/Vol] 7.4 10*3/uL Normal 3.5-11.3 [facility] Comment on above: Performed By: #### B MP, ANTHONY, TROPI #### [facility] [address] [place] [address] Probate Judge: Belén Dale MD D-Dimer Teston 12-18-2022 D-Dimer Test 0.36 ug/mL FEU Normal 0.00-0.59 [facility] Comment on above: Result Comment: When combined with a low clinical probability, a D dimer value of <0.50 ug/mL FEU is considered negative for DVT and PE (negative predictive value of 98%, sensitivity of 97%). If this test is not being used to help rule out DVT and PE, then the following reference range should be utilized: 0.00 - 0.59 ug/mL FEU. The D-Dimer assay is intended for use as an aid in the diagnosis of venous thromboembolism (DVT and PE) and the results should be interpreted in conjunction with the patient's medical history, clinical presentation, and other findings. Elevated levels of D-dimer activity can be seen in any state of coagulation activation and is not recommended in patients with therapeutic dose anticoagulant therapy for >24 hours, fibrinolytic therapy within the previous 7 days, trauma or surgery within the previous 4 weeks, disseminated malignancies, aortic aneurysm, sepsis, severe infections, pneumonia, severe skin infections, liver cirrhosis, advanced age, coronary disease, diabetes, and . A very low percentage of patients with DVT may yield D-dimer results below the cutoff of 0.5 ug/mL FEU. This is known to be more prevalent in patients with distal DVT. Performed By: #### M Francisca, BMPX, CDP #### [facility] [address] [place], [place] 9695283 Probate Judge: Belén Dale MD Physician Referralon 023 Physician Referral [id number] Normal [facility] DNEH-OvM-4ro 12-18-2022 SARS-CoV-2 (COVID-19) RNA NA A+probe Ql (Unsp spec) Not detected Normal NOTDET [facility] Comment on above: Result Comment: Rapid NAAT: The specimen is NEGATIVE for SARS-CoV-2, the novel coronavirus associated with COVID-19. The ID NOW COVID-19 assay is designed to detect the virus that causes COVID-19 in patients with signs and symptoms of infection who are suspected of COVID-19. An individual without symptoms of COVID-19 and who is not shedding SARS-CoV-2 virus would expect to have a negative (not detected) result in this assay. Negative results should be treated as presumptive and, if inconsistent with clinical signs and symptoms or necessary for patient management, should be tested with an alternative molecular assay. Negative results do not preclude SARS-CoV-2 infection and should not be used as the sole basis for patient management decisions. Fact sheet for Healthcare Providers: https://www.fda.gov/media/884356/download Fact sheet for Patients: https://www.fda.gov/media/678255/download Methodology: Isothermal Nucleic Acid Amplification Performed By: #### M Francisca BMPX, ANTHONY #### [facility] [address] [place] [address] Probate Judge: Belén Dale MD Troponinon 12-18-2022 Troponin, High Sens 6 ng/L Normal 0-14 [facility] Comment on above: Result Comment: High Sensitivity Troponin values cannot be compared with other Troponin methodologies. Performed By: #### B MP, ANTHONY, TROPI #### [facility] [address] [place] [address] Probate Judge: Belén Dale MD Telemedicineon 11-14-2022 Telemedicine [id number] Megan Tran 1985 F Date Provider Department Center 11/14/2022 MACRINA FISCHER [facility] CARD [place] [facility] Family History Problem Relation Age of Onset Other Mother Hypertension Mother Heart failure Mother Diabetes Mother Skin cancer Mother Coronary artery disease Mother Heart attack Mother Comments: 52 Heart disease Mother Kidney disease Mother Stroke Mother Diabetes type II Mother Heart disease Father Comments: 57 Heart attack Father Heart murmur Father Diabetes type II Sister Hypertension Sister Cesar's thyroiditis Mother's Sister Aortic aneurysm Maternal Grandmother Comments: 60 Other Son Fainting Son Asthma Son Family Status - Relation Status Age at Mother Father Sister Mother's Sister Maternal Grandmother Son Alive Son Alive Son Alive Level of Service:37412 ME OFFICE/OUTPATIENT ESTABLISHED LOW MDM 20-29 MIN Reason for Visit and Comments: Telehealth Audio/video Visit [871] Normal [facility] CBC W Auto Differential pane l (Bld)on 10-02-2022 Basophils (Bld) [#/Vol] 0.04 10*3/uL Normal <0.11 [facility] Comment on above: Order Comment: Speci men Type: BLOOD SPECIMENOrdering Facility: [facility] Address: [address] [place] [address] Performed By: #### 5 7021-8 ####[facility] LABCLIA [id number] [place] [address] Basophils/100 WBC (Bld) 0.6 % Normal [facility] Comment on above: Order Comment: Speci men Type: BLOOD SPECIMENOrdering Facility: [facility] Address: [address] [place] [address] Performed By: #### 5 7021-8 ####[facility] LABCLIA [id number] [place] [address] Differential cell count method Nom (Bld) Auto Normal [facility] Comment on above: Order Comment: Speci men Type: BLOOD SPECIMENOrdering Facility: [facility] Address: [address] [place] [address] Performed By: #### 5 7021-8 ####[facility]CLIA [id number] [place] [address] Eosinophils (Bld) [#/Vol] 0.21 10*3/uL Normal <0.46 [facility] Comment on above: Order Comment: Speci men Type: BLOOD SPECIMENOrdering Facility: [facility] Address: [address] [place] [address] Performed By: #### 5 7021-8 ####[facility] LABCLIA [id number] [place] [address] Eosinophils/100 WBC (Bld) 3.1 % Normal [facility] Comment on above: Order Comment: Speci men Type: BLOOD SPECIMENOrdering Facility: [facility] Address: [address] [place] [address] Performed By: #### 5 7021-8 ####[facility]CLIA [id number] [place] [address] Erythrocyte distribution wid th (RBC) [Ratio] 11.9 % Normal 11.5-15.0 [facility] Comment on above: Order Comment: Speci men Type: BLOOD SPECIMENOrdering Facility: [facility] Address: [address] [place] [address] Performed By: #### 5 7021-8 ####[facility] LABCLIA [id number] [place] [address] Hematocrit (Bld) [Volume fraction] 42.7 % Normal 3 6.0-46.0 [facility] Comment on above: Order Comment: Speci men Type: BLOOD SPECIMENOrdering Facility: [facility] Address: [address] [place] [address] Performed By: #### 5 7021-8 ####[facility] LABCLIA [id number] [place] [address] Hemoglobin (Bld) [Mass/Vol] 14.3 g/dL Normal 11.5-15. 5 [facility] Comment on above: Order Comment: Speci men Type: BLOOD SPECIMENOrdering Facility: [facility] Address: [address] [place] [address] Performed By: #### 5 7021-8 ####[facility] LABCLIA [id number] [place] [address] Immature granulocytes (Bld) [#/Vol] 0.03 10*3/uL Normal <0.10 [facility] Comment on above: Order Comment: Speci men Type: BLOOD SPECIMENOrdering Facility: [facility] Address: [address] [address] Performed By: #### 5 7021-8 ####[facility] LABCLIA [id number] [place] [address] Immature granulocytes/100 WBC (Bld) 0.4 % Normal [facility] Comment on above: Order Comment: Speci men Type: BLOOD SPECIMENOrdering Facility: [facility] Address: [address] [place] [address] Performed By: #### 5 7021-8 ####[facility] LABCLIA [id number] [place] [address] Lymphocytes (Bld) [#/Vol] 1.60 10*3/uL Normal 1.00-4.0 0 [facility] Comment on above: Order Comment: Speci men Type: BLOOD SPECIMENOrdering Facility: [facility] Address: [address] [place] [address] Performed By: #### 5 7021-8 ####[facility] LABCLIA [id number] [place] [address] Lymphocytes/100 WBC (Bld) 23.7 % Normal [facility] Comment on above: Order Comment: Speci men Type: BLOOD SPECIMENOrdering Facility: [facility] Address: [address] [place] [address] Performed By: #### 5 7021-8 ####[facility] LABCLIA [id number] [place] [address] MCH (RBC) [Entitic mass] 28.6 pg Normal 26.0-34.0 [facility] Comment on above: Order Comment: Speci men Type: BLOOD SPECIMENOrdering Facility: [facility] Address: [address] [place] [address] Performed By: #### 5 7021-8 ####[facility] LABCLIA [id number] [place] [address] MCHC (RBC) [Mass/Vol] 33.5 g/dL Normal 30.5-36.0 [facility] Comment on above: Order Comment: Speci men Type: BLOOD SPECIMENOrdering Facility: [facility] Address: [address] [place] [address] Performed By: #### 5 7021-8 ####[facility] LABCLIA [id number] [place] [address] MCV (RBC) [Entitic vol] 85.4 fL Normal 80.0-100.0 [facility] Comment on above: Order Comment: Speci men Type: BLOOD SPECIMENOrdering Facility: [facility] Address: [address] [place] [address] Performed By: #### 5 7021-8 ####[facility] LABCLIA [id number] [place] [address] Monocytes (Bld) [#/Vol] 0.31 10*3/uL Normal <0.87 [facility] Comment on above: Order Comment: Speci men Type: BLOOD SPECIMENOrdering Facility: [facility] Address: [address] [place] [address] Performed By: #### 5 7021-8 ####[facility] LABCLIA [id number] [place] [address] Monocytes/100 WBC (Bld) 4.6 % Normal [facility] Comment on above: Order Comment: Speci men Type: BLOOD SPECIMENOrdering Facility: [facility] Address: [address] [place] [address] Performed By: #### 5 7021-8 ####[facility] LABCLIA [id number] [place] [address] Neutrophils (Bld) [#/Vol] 4.57 10*3/uL Normal 1.45-7.5 0 [facility] Comment on above: Order Comment: Speci men Type: BLOOD SPECIMENOrdering Facility: [facility] Address: [address] [place] [address] Performed By: #### 5 7021-8 ####[facility] LABCLIA [id number] [place] [address] Neutrophils/100 WBC (Bld) 67.6 % Normal [facility] Comment on above: Order Comment: Speci men Type: BLOOD SPECIMENOrdering Facility: [facility] Address: [address] [place] [address] Performed By: #### 5 7021-8 ####[facility] LABCLIA [id number] [place] [address] Nucleated RBC (Bld) [#/Vol] 10*3/uL Normal <0.01 [facility] Comment on above: Order Comment: Speci men Type: BLOOD SPECIMENOrdering Facility: [facility] Address: [address] [place] [address] Performed By: #### 5 7021-8 ####[facility] LABCLIA [id number] [place] [address] Nucleated RBC/100 WBC (Bld) [Ratio] 0.0 /100 WBC Normal [facility] Comment on above: Order Comment: Speci men Type: BLOOD SPECIMENOrdering Facility: [facility] Address: [address] [place] [address] Performed By: #### 5 7021-8 ####[facility] LABCLIA [id number] [place] [address] Platelet mean volume (Bld) [ Entitic vol] 9.5 fL Normal 9.0-12.7 [facility] Comment on above: Order Comment: Speci men Type: BLOOD SPECIMENOrdering Facility: [facility] Address: [address] [place], [place] [id number] Performed By: #### 5 7021-8 ####[facility] LABCLIA [id number] [place] [address] Platelets (Bld) [#/Vol] 248 10*3/uL Normal 150-400 [facility] Comment on above: Order Comment: Speci men Type: BLOOD SPECIMENOrdering Facility: [facility] Address: [address] [address] Performed By: #### 5 7021-8 ####[facility] [id number] [place] [address] RBC (Bld) [#/Vol] 5.00 10*6/uL Normal 3.90-5.20 [facility] Comment on above: Order Comment: Speci men Type: BLOOD SPECIMENOrdering Facility: [facility] Address: [address] [place] [address] Performed By: #### 5 7021-8 ####[facility] LABIA [id number] [place] [address] WBC (Bld) [#/Vol] 6.76 10*3/uL Normal 3.70-11.00 [facility] Comment on above: Order Comment: Speci men Type: BLOOD SPECIMENOrdering Facility: [facility] Address: [address] [place] [address] Performed By: #### 5 7021-8 ####[facility] [id number] [place] [address] CNOVSPon 10-02-2022 OVS Visit (SP) Office ( EMA) LEANA TRAN ([id number]) 1985 F Date Time Provider Department 10/02/22 9:45 AM FUENTES AMARAL During your visit today, we recorded the following information about you: Temperature Pulse Respiration Blood pressure 97.7 degrees 58/minute 16/minute 140/79 Weight Height 100.2 kg 1.626 m Fuentes Amaral MD 10/02/2022 9:55 AM Signed HEMATOLOGY FOLLOW UP October 02, 2022 (Munir) Some elements in this clinic note that are critical to medical decision making have been carefully reviewed and included from a prior clinic note dated:April 17, 2022 (Munir) AND April 03, 2022 (Munir) PCP and other physicians involved in patient's care: Cas Dowell (PCP), Rajinder Collins (surgery), Rubens Tim (ObGyn), DIAGNOSIS: Undiagnosed bleeding disorder, work-up pending - transition of care. 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 She has had multiple surgical, obstetric, gynecologic, and dental procedures in the past. Some of these procedures have been associated with postoperative bleeding complications. Patient also has multiple bleeding issues such as easy gum bleeding on a regular basis. Her family history is unclear given that she was adopted but one of her sons has symptoms similar to her's (recurrent epistaxis and easy gum bleeding). Work-up for bleeding disorder in May 2021 showed an abnormal platelet aggregometry. There was mildly decreased aggregation to low dose ADP, collagen, and arachidonic acid but normal aggregation to high dose ADP and epinephrine (low and high dose). These findings were considered to be nonspecific. Patient does not take any aspirin or NSAIDs. 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 She has seen medical genetics and work-up is ongoing pending insurance authorization. Based on her previous surgical experiences, any surgical bleeding may be minimized by using FFP and platelet transfusions prior to the procedure. Follow up after genetics work-up is complete which she was encouraged to pursue. Additional constitutional symptoms will need additional workup. Reviewed Mammography showing axillary tail lymph nodes. They appeared benign and today's exam was normal. If she remains concerned, we can re-examine her and set up a breast MRI. Continue follow up with Dr. Stephon Cronin's group for POTS Now on Mestanon PLAN: Continue Amicar prior to dental extraction FFP for major surgery. RTC in 12 months - cbc, cmp HPI: Patient has an extensive and longstanding history of bleeding issues. In 2008, she was seen by Dr. Shirley and was noted to have an elevated PTT of 36 seconds. This corrected by addition of FFP. 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 She reportedly tested negative for von Willebrand disease. Some of these labs have been scanned in our EMR (2011). Previous bleeding history includes menorrhagia (endometrial ablation in 2014 for which she needed FFP and hysterectomy in 2019 [unclear whether she got FFP]), epistaxis since childhood (resolved after sinus surgery in 2010), gum bleeding on a daily basis with minimal trauma, and a recent episode of bright red blood per rectum in March 2021 (no EGD or colonoscopy). Previous dental procedures include cavity fillings. It is unclear whether she had any bleeding issues after that procedure. She has had 2 normal vaginal deliveries with hemorrhage but patient does not remember if any medical or surgical intervention was done. She had a during her third and reports that the surgery took longer than anticipated. Referred to me in May 2021 for pre-operative clearance prior to elective inguinal hernia repair May 2021, PT 10 seconds, PTT 32.7 seconds, activity levels of factors II, V, IX, X, XI; activity levels of factor VIII elevated; no evidence of von Willebrand's disease; platelet function screen normal; platelet aggregometry notable showed mildly decreased aggregation to low dose ADP, collagen, and arachidonic acid but normal aggregation to high dose ADP and epinephrine (low and high dose). There was a normal stimulated dense granule release to all agonists. The ristocetin induced platelet aggregation showed a normal dose response. Overall, these findings were non-specific. July 2021, above labs repeated with the same result; TEG normal; fibrinogen antigen normal Updated Visit, October 02, 2022: Had a number of teeth removed. Amicar worked for her wisdom tooth but she didn't take it for more recent extractions and it sounds like they needed to use extra doses of thrombin (patient is not sure). Suggested that she use Amicar with next attempt. Updated Visit, April 17, 2022: Telephone (more content not included)... Normal [facility] Comprehensive metabolic 2000 panelon 10-02-2022 Albumin [Mass/Vol] 4.5 g/dL Normal 3.9-4.9 [facility] Comment on above: Order Comment: Speci men Type: BLOOD SPECIMENOrdering Facility: [facility] Address: [address] [place], [place] [address] [address] Performed By: #### 2 4323-8 ####[facility] LABCLIA [id number] [place] [address] ALP [Catalytic activity/Vol] 80 U/L Normal 34-123 [facility] Comment on above: Order Comment: Speci men Type: BLOOD SPECIMENOrdering Facility: [facility] Address: [address] [place] [address] Performed By: #### 2 4323-8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 [address] [place] [address] Dr. Nilton Mccall EO # 0.2 103/ul Normal 0.0-0.7 [facility] Comment on above: Performed By: #### C BC #### [facility] [address] [place] [address] Dr. Nilton Mccall Eosinophils/100 WBC (Bld) 2.8 % Normal 0.9-7.0 [facility] Comment on above: Performed By: #### C BC #### [facility] [address] [place] [address] Dr. Nilton Mccall Erythrocyte distribution wid th (RBC) [Ratio] 11.8 % Normal 11.0-15.0 [facility] Comment on above: Performed By: #### C BC #### [facility] [address] [place] [address] Dr. Nilton Mccall Hematocrit (Bld) [Volume fraction] 41.8 % Normal 3 6.0-48.0 [facility] Comment on above: Performed By: #### C BC #### [facility] [address] [place] [address] Dr. Nilton Mccall Hemoglobin (Bld) [Mass/Vol] 14.2 g/dL Normal 12.0-16. 0 [facility] Comment on above: Performed By: #### C BC #### [facility] [address] [place] [address] Dr. Nilton Mccall IG # 0.03 10e3/ul Normal 0.00-0.03 [facility] Comment on above: Performed By: #### C BC #### [facility] [address] [place] [address] Dr. Nilton Mccall IG % 0.4 % Normal 0.0-0.5 [facility] Comment on above: Performed By: #### C BC #### [facility] [address] [place] [address] Dr. Nilton Mccall LYMPH # 2.3 103/ul Normal 1.2-3.8 [facility] Comment on above: Performed By: #### C BC #### [facility] [address] [place] [address] Dr. Nilton Mccall Lymphocytes/100 WBC (Bld) 28.8 % Normal 20.5-60.0 [facility] Comment on above: Performed By: #### C BC #### [facility] [address] [place] [address] Dr. Nilton Mccall MANUAL DIFF REQ NO Normal [facility] Comment on above: Performed By: #### C BC #### [facility] [address] [place] [address] Dr. Nilton Mccall MCH (RBC) [Entitic mass] 29.4 pg Normal 26.7-34.0 [facility] Comment on above: Performed By: #### C BC #### [facility] [address] [place] [address] Dr. Nilton Mccall MCHC (RBC) [Mass/Vol] 34.0 g/dL Normal 29.9-35.2 [facility] Comment on above: Performed By: #### C BC #### [facility] [address] [place] [address] Dr. Nilton Mccall MCV (RBC) [Entitic vol] 86.5 fL Normal 81.0-99.0 [facility] Comment on above: Performed By: #### C BC #### [facility] [address] [place] [address] Dr. Nilton Mccall MONO # 0.4 103/ul Normal 0.3-0.8 [facility] Comment on above: Performed By: #### C BC #### [facility] [address] [place] [address] Dr. Nilton Mccall Monocytes/100 WBC (Bld) 4.5 % Normal 1.7-12.0 [facility] Comment on above: Performed By: #### C BC #### [facility] [address] [place] [address] Dr. Nilton Mccall NEUT # 5.0 103/ul Normal 1.4-6.5 [facility] Comment on above: Performed By: #### C BC #### [facility] [address] [place] [address] Dr. Nilton Mccall Neutrophils/100 WBC (Bld) 63.0 % Normal 43.0-75.0 [facility] Comment on above: Performed By: #### C BC #### [facility] [address] [address] [address] Nilton Mccall Platelet mean volume (Bld) [Entitic vol] 9.5 fL Normal 9.5-13.5 [facility] Comment on above: Performed By: #### C BC #### [facility] [address] [address] [address] Nilton Mccall PLT 279 103/ul Normal 150-450 [facility] Comment on above: Performed By: #### C BC #### [facility] [address] [place] [address] Dr. Nilton Mccall RBC 4.83 106/ul Normal 4.20-5.40 [facility] Comment on above: Performed By: #### C BC #### [facility] [address] [place] [address] Dr. Nilton Mccall WBC 7.9 103/ul Normal 4.0-11.0 [facility] Comment on above: Performed By: #### C BC #### [facility] [address] [place] [address] Dr. Nilton Mccall GLYCOHEMOGLOBIN A1Con 2022 ADA RECOMMENDATION SEE BELOW Normal [facility] Comment on above: Result Comment: ADA RECOMMENDED LIMIT 4.0 - 6.0 ADA THERAPEUTIC TARGET < 7.0 ACTION SUGGESTED > 7.0 Performed By: #### C MP #### [facility] [address] [place] [address] Dr. Nilton Mccall Glucose [Mass/Vol] 117 mg/dL Normal [facility] Comment on above: Performed By: #### C MP #### [facility] [address] [address] [address] Nilton Mccall HbA1c (Bld) [Mass fraction] 5.7 % Normal 4.5-6.2 [facility] Comment on above: Performed By: #### C MP #### [facility] [address] [place] [address] Dr. Nilton Mccall VIT B12 AND FOLATEon 05-11-2 023 Cobalamin (Vitamin B12) [Mass/Vol] 539.0 pg/mL Normal 193.0-986.0 [facility] Comment on above: Performed By: #### C BC #### [facility] [address] [place] [address] Dr. Nilton Mccall FOLATE 16.40 ng/mL Normal 8.60-58.90 [facility] Comment on above: Performed By: #### C BC #### [facility] [address] [place] [address] Dr. Nilton Mccall VITAMIN D 25 OHon 06-15-2022 VIT D 25-OH 41.2 ng/mL Normal [facility] Comment on above: Performed By: #### C BC #### [facility] [address] [place] [address] Dr. Niltno Mccall VIT D RANGES SEE BELOW Normal [facility] Comment on above: Result Comment: <20 ng/mL Vit D deficient 20 - <30 ng/mL Vit D insufficient 30 - 100 ng/mL Vit D sufficient >100 ng/mL Potential Toxicity Performed By: #### C BC #### [facility] [address] [place] [address] Dr. Nilton Mccall FREE T3on 06-05-2022 FREE T3 2.39 pg/mlL Normal 2.18-3.98 [facility] Comment on above: Performed By: #### T SH, FT3 #### [facility] [address] [place] [address] Dr. Nilton Mccall FREE T4on 06-05-2022 Free T4 [Mass/Vol] 0.89 ng/dL Normal 0.76-1.46 [facility] Comment on above: Performed By: #### C MP #### [facility] [address] [place] [address] Dr. Nilton Mccall TSHon 06-05-2022 TSH 1.431 uIU/mL Normal 0.358-3.740 [facility] Comment on above: Performed By: #### T SH, FT3 #### [facility] [address] [place] [address] Dr. Nilton Mccall Consulton 05-24-2022 Consult [id number] Megan Tran 1985 F Date Provider Department Center 05/24/2022 GuanakoARAMISNICK BlancasLY [facility] CARD [place] HeartVAS Family History Problem Relation Age of Onset Other Mother Hypertension Mother Heart failure Mother Diabetes Mother Skin cancer Mother Coronary artery disease Mother Heart attack Mother Comments: 52 Heart disease Father Comments: 57 Diabetes type II Sister Hypertension Sister Cesar's thyroiditis Mother's Sister Aortic aneurysm Maternal Grandmother Comments: 60 Other Son Fainting Son Asthma Son Family Status - Relation Status Age at Mother Father Sister Mother's Sister Maternal Grandmother Son Alive Son Alive Son Alive Level of Service:91384 ME OFFICE/OUTPATIENT [facility] 60-74 MINUTES Reason for Visit and Comments: Dysautonomia [Other] Normal [facility] Letter (Out)on 05-24-2022 Letter (Out) [id number] Megan Tran 1985 F Date Provider Department Center 05/24/2022 None-None [facility] AUTH [place] Medical C Family History Problem Relation Age of Onset Other Mother Hypertension Mother Heart failure Mother Diabetes Mother Skin cancer Mother Coronary artery disease Mother Heart attack Mother Comments: 52 Heart disease Father Comments: 57 Diabetes type II Sister Hypertension Sister Cesar's thyroiditis Mother's Sister Aortic aneurysm Maternal Grandmother Comments: 60 Other Son Fainting Son Asthma Son Family Status - Relation Status Age at Mother Father Sister Mother's Sister Maternal Grandmother Son Alive Son Alive Son Alive Normal [facility] Feroz 05-03-2022 CNPN Telephone (NEUR) LEANA TRAN ([id number]) 1985 F Date Time Provider Department 05/03/22 MEENA GRISSOM During your visit today, we recorded the following information about you: Yury Collins MA 05/03/2022 11:44 AM Signed Allergies As of Date: 05/03/2022 Noted Allergy Reaction CEFACLOR 09/04/2011 12 - Shortness of Breath 10 - Anaphylaxis 7 - Swelling Comments: Other reaction(s): Unknown IODINATED CONTRAST MEDIA 02/23/2014 10 - Anaphylaxis Comments: Tolerated with pre-medication on 09/22/21 Other reaction(s): Unknown Does not tolerate with pre-medication FISH CONTAINING PRODUCTS 07/25/2021 4 - Hives SHELLFISH DERIVED 07/25/2021 4 - Hives ALEVE (NAPROXEN) 09/06/2020 18 - Angioedema ASPIRIN 02/23/2014 18 - Angioedema CEFTIN (CEFUROXIME AXETIL) 02/23/2014 12 - Shortness of Breath CLINDAMYCIN 02/23/2014 2 - Rash 12 - Shortness of Breath ERYTHROMYCIN 02/23/2014 7 - Swelling 12 - Shortness of Breath 16 - Unknown EUCALYPTUS 10/23/2020 10 - Anaphylaxis GATIFLOXACIN 2014 6 - Diarrhea LAVENDER (LAVANDULA ANGUSTIFOLIA) 09/06/2020 10 - Anaphylaxis PENICILLIN G BENZATHINE 08/18/2021 16 - Unknown PENICILLINS 02/23/2014 2 - Rash 9 - Itching SULFA (SULFONAMIDE ANTIBIOTICS) 05/18/2015 7 - Swelling 12 - Shortness of Breath VIOXX (ROFECOXIB) 06/08/2021 16 - Unknown FROYLAN 28 (DROSPIRENONE-ETHINYL ESTR*06/08/2021 14 - Other: See Comments Comments: Skin discoloration of feet with OCPs LATEX 02/23/2014 2 - Rash 9 - Itching 16 - Unknown Comments: Skin cracks and bleeds LEVOFLOXACIN 11/11/2020 2 - Rash Date Reviewed: 04/26/2022 Reviewed by: Bhargavi Saldana PA-C - Fully Assessed Reason for Visit: PAP Therapy Follow Up [1285] Cmt: DOWNLOAD Prescriptions as of 05/03/2022 - CPAP/BIPAP/OTHER Type .CPAPSettings into a note to see current settings/supplies/DME information. - aminocaproic acid (AMICAR) 500 mg tablet Take 2 tablets by mouth every 6 hours as needed (once prior to dentist and then after for 3-4 doses.) for up to 5 days. - DULoxetine (CYMBALTA) 30 mg capsule TAKE 1 CAPSULE BY MOUTH EVERY DAY DO NOT CRUSH OR CHEW - Fluticasone Furoate (FLONASE SENSIMIST) 27.5 mcg/actuation nasal spray 1 spray in each nostril - levalbuterol tartrate HFA 45 mcg/actuation inhaler Inhale 1-2 Puffs as instructed every 4 hours as needed for wheezing/shortness of breath. - SITagliptin (JANUVIA) 100 mg tablet Take 1 tablet by mouth once daily. - Magnesium 250 mg tab Take 250 mg by mouth. - ASCORBIC ACID, VITAMIN C, ORAL Take 100 mg by mouth once daily. With zinc - Zinc 50 mg tab Take by mouth. - fremanezumab-vfrm subcutaneus auto-injector 225 mg/1.5 mL (AJOVY) Inject 1.5 mL subcutaneously once every month. Do not shake. - UBRELVY 100 mg tablet TAKE 1 TABLET BY MOUTH AT ONSET OF MIGRAINE. MAY REPEAT IN 2 HOURS NEEDED. MAX 2 TABLET IN 24 HOURS - baclofen (LIORESAL) 10 mg tablet Take 10-20 mg by mouth at bedtime as needed. - cetirizine (ZYRTEC) 10 mg tablet Take 10 mg by mouth as needed. - diphenhydrAMINE (BENADRYL) 25 mg tablet Take 50 mg by mouth every 6 hours as needed. - zonisamide (ZONEGRAN) 100 mg capsule Take 1 capsule by mouth once daily. - rimegepant (NURTEC ODT) 75 mg disintegrating tablet Take 1 tablet by mouth once daily as needed. No more than 1 dose in 24 hours. - mecobalamin, vitamin B12, 1,000 mcg ODT once daily. - VITAMIN D-3 125 mcg (5,000 unit) tab Take 5,000 Units by mouth once daily. - EPINEPHrine 0.1 mg/0.1 mL AutoInjector as needed. - lamoTRIgine (LAMICTAL) 150 mg tablet Take 150 mg by mouth daily at bedtime. - sertraline (ZOLOFT) 100 mg tablet Take 200 mg by mouth daily at bedtime. - levothyroxine (SYNTHROID) 100 mcg tablet Take 100 mcg by mouth daily before breakfast. Takes 1.5 tablets on Wednesdays - montelukast (SINGULAIR) 10 mg tablet Take 10 mg by mouth once daily. 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] 04/07/2015 Symptomatic bradycardia [R00.1] 05/24/2021 Blood pressure instability [I99.8] 05/24/2021 Subjective muscle weakness [M62.81] 05/24/2021 Physical deconditioning [R53.81] 05/24/2021 Transient diplopia [H53.2] 05/24/2021 Orthostatic lightheadedness [R42] 05/24/2021 Screening for endocrine disorder [Z13.29] 06/14/2021 Primary hypothyroidism [E03.9] 06/14/2021 Moderate persistent asthma without complication*07/25/2021 Gastroesophageal reflux disease [K21.9] 07/25/2021 Allergic rhinitis [J30.9] 07/25/2021 Allergic reaction to contrast dye [T50.8X5A] 07/25/2021 Drug reaction [T50.905A] 07/25/2021 Adverse food reac (more content not included)... Normal [facility] Ferritin SerPl-mCncon 2022 Ferritin [Mass/Vol] 95.0 ng/mL Normal 14.7-205.1 [facility] Comment on above: Order Comment: Speci men Type: BLOOD SPECIMENOrdering Facility: [facility] Address: [address] [place] [address] Performed By: #### 2 276-4, 64810-7, 3034-6 ####[facility] LABCLIA [id number] [place] [address] [place] Iron and Iron binding capaci ty panelon 04-27-2022 Iron [Mass/Vol] 91 ug/dL Normal 41-186 [facility] Comment on above: Order Comment: Speci men Type: BLOOD SPECIMENOrdering Facility: [facility] Address: [address] Performed By: #### 2 276-4, 50665-5, 3034-6 ####[facility] LABIA [id number] [place] [address] [place] Iron binding capacity [Mass/Vol] 310 ug/dL Normal 232 -386 [facility] Comment on above: Order Comment: Speci men Type: BLOOD SPECIMENOrdering Facility: [facility] Address: [address] [place] [address] Performed By: #### 2 276-4, 79878-4, 3034-6 ####[facility] [id number] [address] [place] Iron/TIBC [Molar ratio] 29.4 % Normal 15.0-57.0 [facility] Comment on above: Order Comment: Speci men Type: BLOOD SPECIMENOrdering Facility: [facility] Address: [address] [place] [address] Performed By: #### 2 276-4, 55460-6, 3034-6 ####[facility] [id number] [place] [address] [place] Transferrin SerPl-mCncon Transferrin [Mass/Vol] 263 mg/dL Normal 200-360 [facility] Comment on above: Order Comment: Speci men Type: BLOOD SPECIMENOrdering Facility: [facility] Address: [address] [place] [address] Performed By: #### 2 276-4, 83182-8, 3034-6 ####[facility] [id number] [place] [address] [place] CNOVSPon 04-03-2022 CNOVSP Visit (SP) Office ( [facility]) LEANA TRAN ([id number]) 1985 F Date Time Provider Department 04/03/22 11:00 AM FUENTES AMARAL During your visit today, we recorded the following information about you: Temperature Pulse Respiration Blood pressure 97.9 degrees 74/minute 16/minute 147/65 Weight Height 99.3 kg 1.626 m Elizabeth Rodriges MA 04/03/2022 10:45 AM Signed Patient is still bruising. ALIZE Starr MD 04/03/2022 11:08 AM Signed HEMATOLOGY FOLLOW UP April 03, 2022 ([place]) Some elements in this clinic note that are critical to medical decision making have been carefully reviewed and included from a prior clinic note dated:February 10, 2022 ([place]) PCP and other physicians involved in patient's care: Cas Dowell (PCP), Rajinder Collins (surgery), Rubens Tim (ObGyn), DIAGNOSIS: Undiagnosed bleeding disorder, work-up pending - transition of care. 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 She has had multiple surgical, obstetric, gynecologic, and dental procedures in the past. Some of these procedures have been associated with postoperative bleeding complications. Patient also has multiple bleeding issues such as easy gum bleeding on a regular basis. Her family history is unclear given that she was adopted but one of her sons has symptoms similar to her's (recurrent epistaxis and easy gum bleeding). Work-up for bleeding disorder in May 2021 showed an abnormal platelet aggregometry. There was mildly decreased aggregation to low dose ADP, collagen, and arachidonic acid but normal aggregation to high dose ADP and epinephrine (low and high dose). These findings were considered to be nonspecific. Patient does not take any aspirin or NSAIDs. 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 She has seen medical genetics and work-up is ongoing pending insurance authorization. Based on her previous surgical experiences, any surgical bleeding may be minimized by using FFP and platelet transfusions prior to the procedure. Follow up after genetics work-up is complete which she was encouraged to pursue. Additional constitutional symptoms will need additional workup. Reviewed Mammography showing axillary tail lymph nodes. They appeared benign and today's exam was normal. If she remains concerned, we can re-examine her and set up a breast MRI. PLAN: Platelet electron microscopy pending drawn Call results when available - anticipate 2 weeks Consider functional medicine referral for DM and PCOS Keep appointment with Dr. Stephon Cronin's group for POTS Trial of Amicar prior to dentist appointment. RTC in 6 months - cbc, cmp HPI: Patient has an extensive and longstanding history of bleeding issues. In 2008, she was seen by Dr. Shirley and was noted to have an elevated PTT of 36 seconds. This corrected by addition of FFP. 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 She reportedly tested negative for von Willebrand disease. Some of these labs have been scanned in our EMR (2011). Previous bleeding history includes menorrhagia (endometrial ablation in 2014 for which she needed FFP and hysterectomy in 2019 [unclear whether she got FFP]), epistaxis since childhood (resolved after sinus surgery in 2010), gum bleeding on a daily basis with minimal trauma, and a recent episode of bright red blood per rectum in March 2021 (no EGD or colonoscopy). Previous dental procedures include cavity fillings. It is unclear whether she had any bleeding issues after that procedure. She has had 2 normal vaginal deliveries with hemorrhage but patient does not remember if any medical or surgical intervention was done. She had a during her third and reports that the surgery took longer than anticipated. Referred to me in May 2021 for pre-operative clearance prior to elective inguinal hernia repair May 2021, PT 10 seconds, PTT 32.7 seconds, activity levels of factors II, V, IX, X, XI; activity levels of factor VIII elevated; no evidence of von Willebrand's disease; platelet function screen normal; platelet aggregometry notable showed mildly decreased aggregation to low dose ADP, collagen, and arachidonic acid but normal aggregation to high dose ADP and epinephrine (low and high dose). There was a normal stimulated dense granule release to all agonists. The ristocetin induced platelet aggregation showed a normal dose response. Overall, these findings were non-specific. July 2021, above labs repeated with the same result; TEG normal; fibrinogen antigen normal Updated Visit, April 03, 2022: Leana returns. Continues to have mild bruising on legs and arms. Figers and ankles feel swollen. TSH 0.0 (more content not included)... Normal [facility] Feorz 04-03-2022 CNPN Telephone (BANNER) LEANA TRAN ([id number]) 1985 F Date Time Provider Department 04/03/22 MEENA GRISSOM BANNER During your visit today, we recorded the following information about you: Marlon Plaza 04/03/2022 9:33 AM Signed Allergies As of Date: 04/03/2022 Noted Allergy Reaction CEFACLOR 09/04/2011 12 - Shortness of Breath 10 - Anaphylaxis 7 - Swelling Comments: Other reaction(s): Unknown IODINATED CONTRAST MEDIA 02/23/2014 10 - Anaphylaxis Comments: Tolerated with pre-medication on 09/22/21 Other reaction(s): Unknown Does not tolerate with pre-medication FISH CONTAINING PRODUCTS 07/25/2021 4 - Hives SHELLFISH DERIVED 07/25/2021 4 - Hives ALEVE (NAPROXEN) 09/06/2020 18 - Angioedema ASPIRIN 02/23/2014 18 - Angioedema CEFTIN (CEFUROXIME AXETIL) 02/23/2014 12 - Shortness of Breath CLINDAMYCIN 02/23/2014 2 - Rash 12 - Shortness of Breath ERYTHROMYCIN 02/23/2014 7 - Swelling 12 - Shortness of Breath 16 - Unknown EUCALYPTUS 10/23/2020 10 - Anaphylaxis GATIFLOXACIN 2014 6 - Diarrhea LAVENDER (LAVANDULA ANGUSTIFOLIA) 09/06/2020 10 - Anaphylaxis PENICILLIN G BENZATHINE 08/18/2021 16 - Unknown PENICILLINS 02/23/2014 2 - Rash 9 - Itching SULFA (SULFONAMIDE ANTIBIOTICS) 05/18/2015 7 - Swelling 12 - Shortness of Breath VIOXX (ROFECOXIB) 06/08/2021 16 - Unknown FROYLAN 28 (DROSPIRENONE-ETHINYL ESTR*06/08/2021 14 - Other: See Comments Comments: Skin discoloration of feet with OCPs LATEX 02/23/2014 2 - Rash 9 - Itching 16 - Unknown Comments: Skin cracks and bleeds LEVOFLOXACIN 11/11/2020 2 - Rash Date Reviewed: 02/10/2022 Reviewed by: Radha Roger - Fully Assessed Reason for Visit: PAP Therapy Follow Up [1285] Cmt: NOT COMPLIANT NEEDS SD CHIP SENT TO DME Prescriptions as of 04/03/2022 - DULoxetine (CYMBALTA) 30 mg capsule TAKE 1 CAPSULE BY MOUTH EVERY DAY DO NOT CRUSH OR CHEW - Fluticasone Furoate (FLONASE SENSIMIST) 27.5 mcg/actuation nasal spray 1 spray in each nostril - arformoterol (BROVANA) 15 mcg/2 mL nebulizer solution Inhale 2 mL as instructed every 12 hours. - levalbuterol tartrate HFA 45 mcg/actuation inhaler Inhale 1-2 Puffs as instructed every 4 hours as needed for wheezing/shortness of breath. - budesonide (PULMICORT) 0.5 mg/2 mL nebulizer solution Use 2 mL via nebulizer every 12 hours. Inhale over 5-15 minutes - SITagliptin (JANUVIA) 100 mg tablet Take 1 tablet by mouth once daily. - Magnesium 250 mg tab Take 250 mg by mouth. - ASCORBIC ACID, VITAMIN C, ORAL Take 100 mg by mouth once daily. With zinc - Zinc 50 mg tab Take by mouth. - fremanezumab-vfrm subcutaneus auto-injector 225 mg/1.5 mL (AJOVY) Inject 1.5 mL subcutaneously once every month. Do not shake. - UBRELVY 100 mg tablet TAKE 1 TABLET BY MOUTH AT ONSET OF MIGRAINE. MAY REPEAT IN 2 HOURS NEEDED. MAX 2 TABLET IN 24 HOURS - baclofen (LIORESAL) 10 mg tablet Take 10-20 mg by mouth at bedtime as needed. - cetirizine (ZYRTEC) 10 mg tablet Take 10 mg by mouth as needed. - diphenhydrAMINE (BENADRYL) 25 mg tablet Take 50 mg by mouth every 6 hours as needed. - zonisamide (ZONEGRAN) 100 mg capsule Take 1 capsule by mouth once daily. - rimegepant (NURTEC ODT) 75 mg disintegrating tablet Take 1 tablet by mouth once daily as needed. No more than 1 dose in 24 hours. - prazosin (MINIPRESS) 5 mg cap Take 5 mg by mouth daily at bedtime. - mecobalamin, vitamin B12, 1,000 mcg ODT once daily. - VITAMIN D-3 125 mcg (5,000 unit) tab Take 5,000 Units by mouth once daily. - EPINEPHrine 0.1 mg/0.1 mL AutoInjector as needed. - lamoTRIgine (LAMICTAL) 150 mg tablet Take 150 mg by mouth daily at bedtime. - sertraline (ZOLOFT) 100 mg tablet Take 200 mg by mouth daily at bedtime. - levothyroxine (SYNTHROID) 112 mcg tablet Take 112 mcg by mouth daily before breakfast. Takes 1.5 tablets on Wednesdays - montelukast (SINGULAIR) 10 mg tablet Take 10 mg by mouth once daily. 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] 04/07/2015 Symptomatic bradycardia [R00.1] 05/24/2021 Blood pressure instability [I99.8] 05/24/2021 Subjective muscle weakness [M62.81] 05/24/2021 Physical deconditioning [R53.81] 05/24/2021 Transient diplopia [H53.2] 05/24/2021 Orthostatic lightheadedness [R42] 05/24/2021 Screening for endocrine disorder [Z13.29] 06/14/2021 Primary hypothyroidism [E03.9] 06/14/2021 Moderate persistent asthma without complication*07/25/2021 Gastroesophageal reflux disease [K21.9] 07/25/2021 Allergic rhinitis [J30.9] 07/25/2021 Allergic reaction to contrast dye [T50.8X5A] 07/25/2021 Drug reaction [T50.9 (more content not included)... Normal [facility] PLATELET TRANSMISSION ELECTR ON MICROSCOPIC STUDYon 03-29-2022 PLATELET TEM Performed Normal [facility] Comment on above: Order Comment: Dulce Maria jules Type: BLOOD SPECIMEN Ordering Facility: [facility] Address: [address] [place] [address] Performed By: #### P LTEMS #### [facility] CLIA [id number] [address] [place] [id number] PTEM INTERPRETATION SEE NOTE Normal [facility] Comment on above: Order Comment: Dulce Maria jules Type: BLOOD SPECIMEN Ordering Facility: [facility] Address: [address] Result Comment: IMPR ESSION: Platelet transmission electron microscopy (PTEM) studies demonstrate essentially normal dense granules, alpha granules and other ultra-structures. No abnormal inclusions identified. ELECTRON MICROSCOPIC DESCRIPTION: PTEM studies are performed. The quality of the EM studies is adequate. Whole mount PTEM study demonstrates essentially normal mean dense body count, 2.7 dense granules per platelet (100 platelets are counted; normal adult range is greater than or equal to 1.2 dense granules per platelet). There are no abnormal dense granules identified. Note: Dense body count could be falsely low due to inadequate sample transportation or storage. Thin section PTEM study demonstrates normal platelet ultra-structure with mild distortion of the platelet morphology, likely due to sample transportation or storage. There is no evidence of alpha granule deficiency, abnormal membranous inclusions or other abnormalities. Reviewed by: Dmitri Garcia M.D., Ph.D. ADDITIONAL INFORMATION This test was developed and its performance characteristics determined by [facility] in a manner consistent with CLIA requirements. This test has not been cleared or approved by the U.S. Food and Drug Administration. Test Performed by: [address] [address] Probate Judge: Shree Norwood M.D. Ph.D.; CLIA# [id number] Performed By: #### P LTEMS #### [facility] CLIA [id number] [address] [place] [address] Feroz 03-21-2022 CNPN Telephone (HEMASA) LEANA TRAN ([id number]) 1985 F Date Time Provider Department 03/21/22 YANCY LEÓN During your visit today, we recorded the following information about you: Yancy León RN 03/21/2022 10:45 AM Signed Received call from pt stating she was not able to get her PLT lab test done in [place] d/t them no longer doing them on or fridays so she needs to move out her appt with Dr Salas so she has time to try again to get lab done. Pt transferred to assistant front office manager to reschedule f/u appt. Yancy León RN Allergies As of Date: 03/21/2022 Noted Allergy Reaction CEFACLOR 09/04/2011 12 - Shortness of Breath 10 - Anaphylaxis 7 - Swelling Comments: Other reaction(s): Unknown IODINATED CONTRAST MEDIA 02/23/2014 10 - Anaphylaxis Comments: Tolerated with pre-medication on 09/22/21 Other reaction(s): Unknown Does not tolerate with pre-medication FISH CONTAINING PRODUCTS 07/25/2021 4 - Hives SHELLFISH DERIVED 07/25/2021 4 - Hives ALEVE (NAPROXEN) 09/06/2020 18 - Angioedema ASPIRIN 02/23/2014 18 - Angioedema CEFTIN (CEFUROXIME AXETIL) 02/23/2014 12 - Shortness of Breath CLINDAMYCIN 02/23/2014 2 - Rash 12 - Shortness of Breath ERYTHROMYCIN 02/23/2014 7 - Swelling 12 - Shortness of Breath 16 - Unknown EUCALYPTUS 10/23/2020 10 - Anaphylaxis GATIFLOXACIN 2014 6 - Diarrhea LAVENDER (LAVANDULA ANGUSTIFOLIA) 09/06/2020 10 - Anaphylaxis PENICILLIN G BENZATHINE 08/18/2021 16 - Unknown PENICILLINS 02/23/2014 2 - Rash 9 - Itching SULFA (SULFONAMIDE ANTIBIOTICS) 05/18/2015 7 - Swelling 12 - Shortness of Breath VIOXX (ROFECOXIB) 06/08/2021 16 - Unknown FROYLAN 28 (DROSPIRENONE-ETHINYL ESTR*06/08/2021 14 - Other: See Comments Comments: Skin discoloration of feet with OCPs LATEX 02/23/2014 2 - Rash 9 - Itching 16 - Unknown Comments: Skin cracks and bleeds LEVOFLOXACIN 11/11/2020 2 - Rash Date Reviewed: 02/10/2022 Reviewed by: Radha Roger - Fully Assessed Reason for Visit: Orders [681] Appointment [186] Prescriptions as of 03/21/2022 - DULoxetine (CYMBALTA) 30 mg capsule TAKE 1 CAPSULE BY MOUTH EVERY DAY DO NOT CRUSH OR CHEW - Fluticasone Furoate (FLONASE SENSIMIST) 27.5 mcg/actuation nasal spray 1 spray in each nostril - arformoterol (BROVANA) 15 mcg/2 mL nebulizer solution Inhale 2 mL as instructed every 12 hours. - levalbuterol tartrate HFA 45 mcg/actuation inhaler Inhale 1-2 Puffs as instructed every 4 hours as needed for wheezing/shortness of breath. - budesonide (PULMICORT) 0.5 mg/2 mL nebulizer solution Use 2 mL via nebulizer every 12 hours. Inhale over 5-15 minutes - SITagliptin (JANUVIA) 100 mg tablet Take 1 tablet by mouth once daily. - Magnesium 250 mg tab Take 250 mg by mouth. - ASCORBIC ACID, VITAMIN C, ORAL Take 100 mg by mouth once daily. With zinc - Zinc 50 mg tab Take by mouth. - fremanezumab-vfrm subcutaneus auto-injector 225 mg/1.5 mL (AJOVY) Inject 1.5 mL subcutaneously once every month. Do not shake. - UBRELVY 100 mg tablet TAKE 1 TABLET BY MOUTH AT ONSET OF MIGRAINE. MAY REPEAT IN 2 HOURS NEEDED. MAX 2 TABLET IN 24 HOURS - baclofen (LIORESAL) 10 mg tablet Take 10-20 mg by mouth at bedtime as needed. - cetirizine (ZYRTEC) 10 mg tablet Take 10 mg by mouth as needed. - diphenhydrAMINE (BENADRYL) 25 mg tablet Take 50 mg by mouth every 6 hours as needed. - zonisamide (ZONEGRAN) 100 mg capsule Take 1 capsule by mouth once daily. - rimegepant (NURTEC ODT) 75 mg disintegrating tablet Take 1 tablet by mouth once daily as needed. No more than 1 dose in 24 hours. - prazosin (MINIPRESS) 5 mg cap Take 5 mg by mouth daily at bedtime. - mecobalamin, vitamin B12, 1,000 mcg ODT once daily. - VITAMIN D-3 125 mcg (5,000 unit) tab Take 5,000 Units by mouth once daily. - EPINEPHrine 0.1 mg/0.1 mL AutoInjector as needed. - lamoTRIgine (LAMICTAL) 150 mg tablet Take 150 mg by mouth daily at bedtime. - sertraline (ZOLOFT) 100 mg tablet Take 200 mg by mouth daily at bedtime. - levothyroxine (SYNTHROID) 112 mcg tablet Take 112 mcg by mouth daily before breakfast. Takes 1.5 tablets on Wednesdays - montelukast (SINGULAIR) 10 mg tablet Take 10 mg by mouth once daily. 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 Normal [facility] Specimen Rejectionon 023 Reason for rejection Unable to perform t esting: Specimen age beyond stability limit. Normal [facility] Comment on above: Performed By: #### M Francisca BMPX, CDP #### [facility] [address] [place] [address] Probate Judge: Belén Dale MD Source of sample .BLOOD Normal [facility] Comment on above: Performed By: #### CELESTINA Cam, CDP #### [facility] [address] [place] [address] Probate Judge: Belén Dale MD Test ordered PLTEM Normal [facility] Comment on above: Performed By: #### CELESTINA Cam, CDP #### [facility] [address] [place] [address] Probate Judge: Belén Dale MD Ambulatory Visit Summaryon 0 02-28-2022 Ambulatory Visit Summary LEANA TRAN :1985 Visit Date:02/28/2022 Ambulatory Visit Instructions Your Diagnosis Urethral stricture Gross hematuria Stress incontinence Tests Performed US Renal -- Results Pending -- Please visit your patient portal for your results or contact your primary care physician. Your Care Team Attending Physician - LORAINE RUBALCAVA PA-C Primary Care Physician - CAS DOWELL MD This Is Your Medications List Contact prescribing physician if questions or concerns baclofen cetirizine (cetirizine 10 mg Tab) cholecalciferol (Vitamin D3) duloxetine (Cymbalta) fluticasone nasal (Flonase Allergy Relief 50 mcg/inh nasal spray) fremanezumab (Ajovy) lamotrigine (lamotrigine 150 mg Tab) levalbuterol (Xopenex) levothyroxine (Synthroid 112 mcg Tab) montelukast (Singulair 10 mg Tab) multivitamin (Vitamin B12, Folate, and Acetylcysteine oral tablet) prazosin (prazosin 5 mg oral capsule) sertraline (sertraline 100 mg Tab) sitagliptin (Januvia 100 mg Tab) zonisamide (zonisamide 100 mg Cap) Procedures Performed Cystourethroscopy with dilation of urethral stricture (01/23/2022), Abdominal hysterectomy (03/17/2019), Salpingectomy (03/17/2019), Laparoscopic cholecystostomy (04/08/2009), Appendectomy, delivery, Nasal septoplasty, Tubal ligation, Tympanostomy. Discharge Vitals Heart Rate (Peripheral) 74 Respiratory Rate 16 Blood Pressure 121/83 Height 162 cm Height 64 in Weight 99 kg Weight 217.8 lb BMI 37.72 What to do next Scheduled Follow-Up Appointments Sunday 3:00 PM EDT With: LORAINE RUBALCAVA PA-C Where: [facility] [place] Normal [facility] Patient Educationon 02-28-19 Patient Education Urology Urethral Stricture Urethral stricture is narrowing of the tube (urethra) that carries urine from the bladder out of the body. The urethra can become narrow due to scar tissue from an injury or infection. This can make it difficult to pass urine. In women, the urethra opens above the vaginal opening. In men, the urethra opens at the tip of the penis, and the urethra is much longer than it is in women. Because of the length of the male urethra, urethral stricture is much more common in men. This condition is treated with surgery. What are the causes? In both men and women, common causes of urethral stricture include: ? Urinary tract infection (UTI). ? Sexually transmitted infection (STI). ? Use of a tube placed into the urethra to drain urine from the bladder (urinary catheter). ? Urinary tract surgery. In men, common causes of urethral stricture include: ? A severe injury to the pelvis. ? Prostate surgery. ? Injury to the penis. In many cases, the cause of urethral stricture is not known. What increases the risk? You are more likely to develop this condition if you: ? Are male. Men who have had prostate surgery are at risk of developing this condition. ? Use a urinary catheter. ? Have had urinary tract surgery. What are the signs or symptoms? The main symptom of this condition is difficulty passing urine. This may cause decreased urine flow, dribbling, or spraying of urine. Other symptom of this condition may include: ? Frequent UTIs. ? Blood in the urine. ? Pain when urinating. ? Swelling of the penis in men. ? Inability to pass urine (urinary obstruction). How is this diagnosed? This condition may be diagnosed based on: ? Your medical history and a physical exam. ? Urine tests to check for infection or bleeding. ? X-rays. ? Ultrasound. ? Retrograde urethrogram. This is a type of test in which dye is injected into the urethra and then an X-ray is taken. ? Urethroscopy. This is when a thin tube with a light and camera on the end (urethroscope) is used to look at the urethra. How is this treated? This condition is treated with surgery. The type of surgery that you have depends on the severity of your condition. You may have: ? Urethral dilation. In this procedure, the narrow part of the urethra is stretched open (dilated) with dilating instruments or a small balloon. ? Urethrotomy. In this procedure, a urethroscope is placed into the urethra, and the narrow part of the urethra is cut open with a surgical blade inserted through the urethroscope. ? Open surgery. In this procedure, an incision is made in the urethra, the narrow part is removed, and the urethra is reconstructed. Follow these instructions at home: ? Take [id number] and prescription medicines only as told by your health care provider. ? If you were prescribed an antibiotic medicine, take it as told by your health care provider. Do not stop taking the antibiotic even if you start to feel better. ? Drink enough fluid to keep your urine pale yellow. ? Keep all follow-up visits as told by your health care provider. This is important. Contact a health care provider if: ? You have signs of a urinary tract infection, such as: ? Frequent urination or passing small amounts of urine frequently. ? Needing to urinate urgently. ? Pain or burning with urination. ? Urine that smells bad or unusual. ? Cloudy urine. ? Pain in the lower abdomen or back. ? Trouble urinating. ? Blood in the urine. ? Vomiting or being less hungry than normal. ? Diarrhea or abdominal pain. ? Vaginal discharge, if you are female. ? Your symptoms are getting worse instead of better. Get help right away if: ? You cannot pass urine. ? You have a fever. ? You have swelling, bruising, or discoloration of your genital area. This includes the penis, scrotum, and inner thighs for men, and the outer genital organs (vulva) and inner thighs for women. ? You develop swelling in your legs. ? You have difficulty breathing. Summary ? Urethral stricture is narrowing of the tube (urethra) that carries urine from the bladder out of the body. The urethra can become narrow due to scar tissue from an injury or infection. ? This condition can make it difficult to pass urine. ? This condition is treated with surgery. The type of surgery that you have depends on the severity of your condition. ? Contact a health care provider if your symptoms get worse or you have signs of a urinary tract infection. This information is not intended to replace advice given to you by your health care provider. Make sure you discuss any questions you have with your health care provider. Document Released: 02/18/2016 Document Revised: 09/04/2018 Document Reviewed: 09/04/2018 [employer] Patient Education ? 2019 [employer] [facility] Urology Office/Clinic Noteon 02-28-2022 Urology Office/Clinic Note Chief Complaint f/u to Cysto HPI Staff f/u to Cysto/UD done 01/23/22 by [facility] due to urethral stricture, gross hematuria and stress incontinence. NEG Cytology done 12/21/21 Renal US done 12/24/21. Pt did not give urine specimen. Used bathroom in our waiting room. Still having concentrated/grainy/sand in urine. Still having back pain, mid lower Left. Feels a spasm when she urinates. Denies blood in urine. Leaking has improved since dilation. No longer has to rock herself forward to void. History of Present Illness staff HPI reviewed and agree. Review of Systems PHQ Score Initial Depression Screen Score: 0 no fever, chills, malaise, myalgia. no rash/lesions. no chest pain, palpitations, or SOB. no abdominal pain, nausea, vomiting. no unilateral calf swelling, redness, pain Physical Exam Vitals & Measurements HR: 74(Peripheral) RR: 16 BP: 121/83 HT: 64 in HT: 162 cm WT: 99 kg WT: 217.8 lb BMI: 37.72 General: nontoxic, NAD Mouth: moist mucosa Lungs: normal respiratory effort Cardio: regular rate, good distal perfusion Abdomen: nondistended, no suprapubic distention or tenderness, no CVA tenderness Neurologic: Grossly normal Skin: No rashes or suspicious lesions Assessment/Plan Pt has hx of severe IV contrast allergy (doesn't tolerate even with pre-medication). 1. Urethral stricture (N35.919: Unspecified urethral stricture, male, unspecified site) S/p Cysto/UD done 01/23/22 by [facility] due to urethral stricture, gross hematuria and stress incontinence. no longer has to rock herself forward to void. Occasionally feels a spasm when she urinates but this is not every time and not very bothersome. pt advised what sx to monitor for should that would indicate she may benefit from a repeat dilation. 2. Gross hematuria (R31.0: Gross hematuria) Cytology done 12/21/21 was negative. S/p Cysto/UD done 01/23/22 by [facility], neg for b.t. Renal US done 12/24/21 shows 1.0 x 0.7 x 0.6 cm echogenic focus of the left kidney, and retrospectively seen on CT axial image 64. Consider and angiomyolipoma. Will repeat GORDON in 6 mos. Ordered today. No sample provided for UA today. Still passing what she believes to be occasional clots. Says this happens when she sees the sediment (see #4) and then clears with increased fluid intake. Ordered: US Renal 3. Stress incontinence (N39.3: Stress incontinence (female) (male)) ICIQ score 10 on 12/21/21. Leaks w cough/sneeze and physical activity. Leaking has improved since dilation. Still present but much better. 4. Abnormal urine sediment (R82.90: Unspecified abnormal findings in urine) Still having concentrated/grainy/sand in urine on and off. Pt states it looks like chicken soup broth and looks like you're peeing sand. Pt's pcp sent a sample of this abnormal urine and came back as mixed chance per pt. Sediment in urine has been going on for a few months, hasn't had any diet changes. Pt has been taking Vitamin B12, D, and magnesium for at least one year (my research shows these can change color of urine but nothing mentioned sediment). 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 Pt has been seeing rheumatology and was negative for the markers for Lupus and Myasthenia gravis but says these are still on her differential (can't find good info on whether these can change urine appearance). Pt does say it typically clears if she really pushes fluids. Urine SG was 1.030 in Nov UA so maybe this is all dehydration related, but it's odd she uses the words manisha and gritty as opposed to just concentrated urine. Will give pt a hat to collect urine so pt can drop off a sample when she sees the sediment. Instructed to bring on / when I'm in clinic so I can see it for myself. Orders: ciprofloxacin, See Instructions, 1 tab po day prior to procedure. 1 tab po following procedure., # 2 tab(s), Refills(s) 0, Pharmacy: [facility]/pharmacy #[id number], 162, cm, 12/21/21 8:50:00 EST, Height/Length Dosing, 99, kg, 12/21/21 8:50:00 EST, Weight Dosing Total time spent reviewing previous notes/results/external documents, preparing the chart, conducting the encounter with the patient and family, ordering tests/medications, and documenting the encounter was 30 minutes. Follow-up With When Contact Information LORAINE RUBALCAVA PA-C, URL [address] [place] [address] Additional Instructions: f/u 6 mos with [facility] [place] Patient Education Urethral Stricture Documentation recorded by the scribdung Chino accurately reflects the services(s) I performed and decisions made by me. Authenticated by Loraine Rubalcava PA-C on 02/28/2022 12:51:43. I, Jaclyn Chino, personally scribed for [employer] on 02/28/2022 09:03:19. . Proble (more content not included)... Normal [facility] Comment on above: Result Comment: Elec tronically Signed By: LORAINE RUBALCAVA PA-C\.br\Date and Time Signed: 02/28/22 12:54 EST\.br\Electronically Co-Signed By: Jaclyn Chino.br\Date and Time Co-Signed: 02/28/22 09:03 EST Feroz 02-24-2022 CNPN Telephone (NHMNS2) LEANA TRAN ([id number]) 1985 F Date Time Provider Department 02/24/22 BHARGAVI SALDANA NHMNS2 During your visit today, we recorded the following information about you: Vikash Oreilly RN 02/24/2022 3:16 PM Signed PA submitted via [employer]. Kurt TRAN (Appiah: [id number]) Your information has been submitted to [employer]. To check for an updated outcome later, reopen this PA request from your dashboard. If [facility] has not responded to your request within 24 hours, contact [facility] at . If you think there may be a problem with your PA request, use our live chat feature at the bottom right. Vikash Oreilly RN February 24, 2022 3:16 PM Allergies As of Date: 02/24/2022 Noted Allergy Reaction CEFACLOR 09/04/2011 12 - Shortness of Breath 10 - Anaphylaxis 7 - Swelling Comments: Other reaction(s): Unknown IODINATED CONTRAST MEDIA 02/23/2014 10 - Anaphylaxis Comments: Tolerated with pre-medication on 09/22/21 Other reaction(s): Unknown Does not tolerate with pre-medication FISH CONTAINING PRODUCTS 07/25/2021 4 - Hives SHELLFISH DERIVED 07/25/2021 4 - Hives ALEVE (NAPROXEN) 09/06/2020 18 - Angioedema ASPIRIN 02/23/2014 18 - Angioedema CEFTIN (CEFUROXIME AXETIL) 02/23/2014 12 - Shortness of Breath CLINDAMYCIN 02/23/2014 2 - Rash 12 - Shortness of Breath ERYTHROMYCIN 02/23/2014 7 - Swelling 12 - Shortness of Breath 16 - Unknown EUCALYPTUS 10/23/2020 10 - Anaphylaxis GATIFLOXACIN 2014 6 - Diarrhea LAVENDER (LAVANDULA ANGUSTIFOLIA) 09/06/2020 10 - Anaphylaxis PENICILLIN G BENZATHINE 08/18/2021 16 - Unknown PENICILLINS 02/23/2014 2 - Rash 9 - Itching SULFA (SULFONAMIDE ANTIBIOTICS) 05/18/2015 7 - Swelling 12 - Shortness of Breath VIOXX (ROFECOXIB) 06/08/2021 16 - Unknown FROYLAN 28 (DROSPIRENONE-ETHINYL ESTR*06/08/2021 14 - Other: See Comments Comments: Skin discoloration of feet with OCPs LATEX 02/23/2014 2 - Rash 9 - Itching 16 - Unknown Comments: Skin cracks and bleeds LEVOFLOXACIN 11/11/2020 2 - Rash Date Reviewed: 02/10/2022 Reviewed by: Radha Roger - Fully Assessed Reason for Visit: Referral Request [124] Cmt: PA for Ajovy Prescriptions as of 02/24/2022 - DULoxetine (CYMBALTA) 30 mg capsule TAKE 1 CAPSULE BY MOUTH EVERY DAY DO NOT CRUSH OR CHEW - Fluticasone Furoate (FLONASE SENSIMIST) 27.5 mcg/actuation nasal spray 1 spray in each nostril - arformoterol (BROVANA) 15 mcg/2 mL nebulizer solution Inhale 2 mL as instructed every 12 hours. - levalbuterol tartrate HFA 45 mcg/actuation inhaler Inhale 1-2 Puffs as instructed every 4 hours as needed for wheezing/shortness of breath. - budesonide (PULMICORT) 0.5 mg/2 mL nebulizer solution Use 2 mL via nebulizer every 12 hours. Inhale over 5-15 minutes - SITagliptin (JANUVIA) 100 mg tablet Take 1 tablet by mouth once daily. - Magnesium 250 mg tab Take 250 mg by mouth. - Flaxseed Oil oil Take 1,000 mg by mouth once daily. - ASCORBIC ACID, VITAMIN C, ORAL Take 100 mg by mouth once daily. With zinc - Zinc 50 mg tab Take by mouth. - fremanezumab-vfrm subcutaneus auto-injector 225 mg/1.5 mL (AJOVY) Inject 1.5 mL subcutaneously once every month. Do not shake. - UBRELVY 100 mg tablet TAKE 1 TABLET BY MOUTH AT ONSET OF MIGRAINE. MAY REPEAT IN 2 HOURS NEEDED. MAX 2 TABLET IN 24 HOURS - baclofen (LIORESAL) 10 mg tablet Take 10-20 mg by mouth at bedtime as needed. - famotidine (PEPCID) 40 mg tablet Take 40 mg by mouth as needed. - cetirizine (ZYRTEC) 10 mg tablet Take 10 mg by mouth as needed. - diphenhydrAMINE (BENADRYL) 25 mg tablet Take 50 mg by mouth every 6 hours as needed. - LORazepam (ATIVAN) 0.5 mg Take 0.5 mg by mouth twice daily as needed. - zonisamide (ZONEGRAN) 100 mg capsule Take 1 capsule by mouth once daily. - rimegepant (NURTEC ODT) 75 mg disintegrating tablet Take 1 tablet by mouth once daily as needed. No more than 1 dose in 24 hours. - prazosin (MINIPRESS) 5 mg cap Take 5 mg by mouth daily at bedtime. - mecobalamin, vitamin B12, 1,000 mcg ODT once daily. - VITAMIN D-3 125 mcg (5,000 unit) tab Take 5,000 Units by mouth once daily. - EPINEPHrine 0.1 mg/0.1 mL AutoInjector as needed. - lamoTRIgine (LAMICTAL) 150 mg tablet Take 150 mg by mouth daily at bedtime. - sertraline (ZOLOFT) 100 mg tablet Take 200 mg by mouth daily at bedtime. - levothyroxine (SYNTHROID) 112 mcg tablet Take 112 mcg by mouth daily before breakfast. Takes 1.5 tablets on Wednesdays - montelukast (SINGULAIR) 10 mg tablet Take 10 mg by mouth once daily. Facility-Administered Medications as of 02/24/2022 - perflutren lipid microspheres 1.3 mL in NaCl (PF) 0.9% 10 mL injection (DEFINITY) - sodium chloride 0.9 % (flush) 10 mL (BD POSIFLUSH) Problem List As Of Date 02/24/2022 Noted Resolved Coagulopathy (HCC) [D68.9] 02/23/2014 Arachnoid c (more content not included)... Normal [facility] Feroz 02-17-2022 MACYN Telephone (Revinate) LEANA TRAN ([id number]) 1985 F Date Time Provider Department 02/17/22 YANCY LEÓN During your visit today, we recorded the following information about you: Yancy León RN 02/17/2022 4:35 PM Signed Received call from Melodie at [facility] in [place] stating pt had her platelet transmission lab done there but it is a lab test that they send out to other labs and they wanted to know if Dr Salas has a preference on what lab they send it to d/t different labs running the test different ways. ZACH: Please advise. CYNTHIA Liang MD 02/17/2022 5:23 PM Signed [facility] would be good. Yancy León RN 02/20/2022 8:45 AM Signed Informed Lindsey of Dr Salas's response. Lindsey states that [facility] will only except if pt was drawn on and pt was drawn on Sunday so they are sending it out today to [facility], unless Dr Salas would like pt to come back in for a redraw so it can be sent to [facility]. CYNTHIA Liang MD 02/20/2022 8:50 AM Signed Ok with me Allergies As of Date: 02/17/2022 Noted Allergy Reaction CEFACLOR 09/04/2011 12 - Shortness of Breath 10 - Anaphylaxis 7 - Swelling Comments: Other reaction(s): Unknown IODINATED CONTRAST MEDIA 02/23/2014 10 - Anaphylaxis Comments: Tolerated with pre-medication on 09/22/21 Other reaction(s): Unknown Does not tolerate with pre-medication FISH CONTAINING PRODUCTS 07/25/2021 4 - Hives SHELLFISH DERIVED 07/25/2021 4 - Hives ALEVE (NAPROXEN) 09/06/2020 18 - Angioedema ASPIRIN 02/23/2014 18 - Angioedema CEFTIN (CEFUROXIME AXETIL) 02/23/2014 12 - Shortness of Breath CLINDAMYCIN 02/23/2014 2 - Rash 12 - Shortness of Breath ERYTHROMYCIN 02/23/2014 7 - Swelling 12 - Shortness of Breath 16 - Unknown EUCALYPTUS 10/23/2020 10 - Anaphylaxis GATIFLOXACIN 2014 6 - Diarrhea LAVENDER (LAVANDULA ANGUSTIFOLIA) 09/06/2020 10 - Anaphylaxis PENICILLIN G BENZATHINE 08/18/2021 16 - Unknown PENICILLINS 02/23/2014 2 - Rash 9 - Itching SULFA (SULFONAMIDE ANTIBIOTICS) 05/18/2015 7 - Swelling 12 - Shortness of Breath VIOXX (ROFECOXIB) 06/08/2021 16 - Unknown FROYLAN 28 (DROSPIRENONE-ETHINYL ESTR*06/08/2021 14 - Other: See Comments Comments: Skin discoloration of feet with OCPs LATEX 02/23/2014 2 - Rash 9 - Itching 16 - Unknown Comments: Skin cracks and bleeds LEVOFLOXACIN 11/11/2020 2 - Rash Date Reviewed: 02/10/2022 Reviewed by: Radha Roger - Fully Assessed Reason for Visit: Orders [681] Question [1327] Prescriptions as of 02/20/2022 - DULoxetine (CYMBALTA) 30 mg capsule TAKE 1 CAPSULE BY MOUTH EVERY DAY DO NOT CRUSH OR CHEW - Fluticasone Furoate (FLONASE SENSIMIST) 27.5 mcg/actuation nasal spray 1 spray in each nostril - arformoterol (BROVANA) 15 mcg/2 mL nebulizer solution Inhale 2 mL as instructed every 12 hours. - levalbuterol tartrate HFA 45 mcg/actuation inhaler Inhale 1-2 Puffs as instructed every 4 hours as needed for wheezing/shortness of breath. - budesonide (PULMICORT) 0.5 mg/2 mL nebulizer solution Use 2 mL via nebulizer every 12 hours. Inhale over 5-15 minutes - SITagliptin (JANUVIA) 100 mg tablet Take 1 tablet by mouth once daily. - Magnesium 250 mg tab Take 250 mg by mouth. - Flaxseed Oil oil Take 1,000 mg by mouth once daily. - ASCORBIC ACID, VITAMIN C, ORAL Take 100 mg by mouth once daily. With zinc - Zinc 50 mg tab Take by mouth. - fremanezumab-vfrm subcutaneus auto-injector 225 mg/1.5 mL (AJOVY) Inject 1.5 mL subcutaneously once every month. Do not shake. - UBRELVY 100 mg tablet TAKE 1 TABLET BY MOUTH AT ONSET OF MIGRAINE. MAY REPEAT IN 2 HOURS NEEDED. MAX 2 TABLET IN 24 HOURS - baclofen (LIORESAL) 10 mg tablet Take 10-20 mg by mouth at bedtime as needed. - famotidine (PEPCID) 40 mg tablet Take 40 mg by mouth as needed. - cetirizine (ZYRTEC) 10 mg tablet Take 10 mg by mouth as needed. - diphenhydrAMINE (BENADRYL) 25 mg tablet Take 50 mg by mouth every 6 hours as needed. - LORazepam (ATIVAN) 0.5 mg Take 0.5 mg by mouth twice daily as needed. - zonisamide (ZONEGRAN) 100 mg capsule Take 1 capsule by mouth once daily. - rimegepant (NURTEC ODT) 75 mg disintegrating tablet Take 1 tablet by mouth once daily as needed. No more than 1 dose in 24 hours. - prazosin (MINIPRESS) 5 mg cap Take 5 mg by mouth daily at bedtime. - mecobalamin, vitamin B12, 1,000 mcg ODT once daily. - VITAMIN D-3 125 mcg (5,000 unit) tab Take 5,000 Units by mouth once daily. - EPINEPHrine 0.1 mg/0.1 mL AutoInjector as needed. - lamoTRIgine (LAMICTAL) 150 mg tablet Take 150 mg by mouth daily at bedtime. - sertraline (ZOLOFT) 100 mg tablet Take 200 mg by mouth daily at bedtime. - levothyroxine (SYNTHROID) 112 mcg tablet Take 112 mcg by mouth daily before breakfast. Takes 1.5 tablets on Wednesdays - montelukast (SINGULAIR) 10 mg tablet Take 10 mg by mouth once daily (more content not included)... Normal [facility] ELECTRON MICROSCOPYon 2022 LAB AP CASE REPORT Normal [facility] Comment on above: Result Comment: Elec radha Microscopy Case: [id number] Authorizing Provider: Unknown Unknown Collected: 02/17/2022 0000 Ordering Location: [facility] Received: 02/21/2022 8054 Pathologist: Shree Aldana, PhD Cosigner: Ashley Marshall MD Specimen: Blood, Venous Performed By: #### E LECTRON MICROSCOPY ####[facility] ([facility])[address] [place] [address] LAB AP DIAGNOSIS COMMENT No charge has b een applied to this sample. [facility] Comment on above: Performed By: #### E LECTRON MICROSCOPY ####[facility] ([facility])[address] [place] [address] LAB AP REPORT FINAL DIAGNOSI S NARRATIVE [facility] Comment on above: Result Comment: Samp le was drawn on 02.17.22 and received on 02.21.22. This is too old for assessment. Performed By: #### E LECTRON MICROSCOPY ####[facility] ([facility])[address] [place] [address] T4, Freeon 02-17-2022 Thyroxine, Free 1.34 ng/dL 0.93 - 1.70 ng/dL [facility] TSH w/reflex to FT4on 2022 Thyroid Stim. Horm. 0.08 uIU/mL Low 0.30-5.00 [facility] Comment on above: Performed By: #### T SHX #### [facility] [address] [place], [place] [id number] Probate Judge: Belén Dale MD #### FT4 #### [facility] [address], [place] [id number] Probate Judge: Emanuel Reaves MD TSH with Reflexon 02-17-2022 Interpretation and review of laboratory results Abnormal [facility] TSH Qn 0.08 m[IU]/L Low [facility] Thyroxine, Freeon 02-17-2022 Thyroxine, Free 1.34 ng/dL Normal 0.93-1.70 [facility] Comment on above: Performed By: #### T SHX #### [facility] [address] [place] [address] Probate Judge: Belén Dale MD #### FT4 #### [facility] [address] [place], [place] [id number] Probate Judge: MD Feroz Fish 02-16-2022 CNPN Telephone (HEMASA) LEANA TRAN ([id number]) 1985 F Date Time Provider Department 02/16/22 YANCY LEÓN During your visit today, we recorded the following information about you: Yancy León RN 02/16/2022 1:30 PM Signed Received call from pt stating Dr Salas told her to see performance improvement coordinator but their office needs a referral. ZACH: Order pending, please review and sign. CYNTHIA Liang RN 02/17/2022 8:39 AM Signed PSS: Please set pt up with referral to her preferred performance improvement coordinator. Thank you. CYNTHIA Liang 02/17/2022 8:55 AM Signed Pt would like referral sent to Stephon Cronin MD @ [facility]. Lauren, will you please fax records when order is signed? Demo in your box, thanks! Loraine Huggins [facility] 02/17/2022 9:45 AM Signed Records faxed to Dr. Cronin. Janine Hogan Pss 02/23/2022 1:[address] Cronin office spoke with Shanna. She states they have received this referral. Shanna wanted to let us know they do have a [address] list [address] Dr Cronin. She states they can get patients in sooner with their HOT TAR ROOFER HELPER, when they call patients to schedule they offer appointment with HOT TAR ROOFER HELPER first. Patient has been scheduled with Macrina Wadsworth HOT TAR ROOFER HELPER on 04/04 @ 11:00. Janine Hogan Pss Allergies As of Date: 02/16/2022 Noted Allergy Reaction CEFACLOR 09/04/2011 12 - Shortness of Breath 10 - Anaphylaxis 7 - Swelling Comments: Other reaction(s): Unknown IODINATED CONTRAST MEDIA 02/23/2014 10 - Anaphylaxis Comments: Tolerated with pre-medication on 09/22/21 Other reaction(s): Unknown Does not tolerate with pre-medication FISH CONTAINING PRODUCTS 07/25/2021 4 - Hives SHELLFISH DERIVED 07/25/2021 4 - Hives ALEVE (NAPROXEN) 09/06/2020 18 - Angioedema ASPIRIN 02/23/2014 18 - Angioedema CEFTIN (CEFUROXIME AXETIL) 02/23/2014 12 - Shortness of Breath CLINDAMYCIN 02/23/2014 2 - Rash 12 - Shortness of Breath ERYTHROMYCIN 02/23/2014 7 - Swelling 12 - Shortness of Breath 16 - Unknown EUCALYPTUS 10/23/2020 10 - Anaphylaxis GATIFLOXACIN 2014 6 - Diarrhea LAVENDER (LAVANDULA ANGUSTIFOLIA) 09/06/2020 10 - Anaphylaxis PENICILLIN G BENZATHINE 08/18/2021 16 - Unknown PENICILLINS 02/23/2014 2 - Rash 9 - Itching SULFA (SULFONAMIDE ANTIBIOTICS) 05/18/2015 7 - Swelling 12 - Shortness of Breath VIOXX (ROFECOXIB) 06/08/2021 16 - Unknown FROYLAN 28 (DROSPIRENONE-ETHINYL ESTR*06/08/2021 14 - Other: See Comments Comments: Skin discoloration of feet with OCPs LATEX 02/23/2014 2 - Rash 9 - Itching 16 - Unknown Comments: Skin cracks and bleeds LEVOFLOXACIN 11/11/2020 2 - Rash Date Reviewed: 02/10/2022 Reviewed by: Radha Roger - Fully Assessed Reason for Visit: Orders [681] 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 - levalbuterol tartrate HFA 45 mcg/actuation inhaler Inhale 1-2 Puffs as instructed every 4 hours as needed for wheezing/shortness of breath. - budesonide (PULMICORT) 0.5 mg/2 mL nebulizer solution Use 2 mL via nebulizer every 12 hours. Inhale over 5-15 minutes - SITagliptin (JANUVIA) 100 mg tablet Take 1 tablet by mouth once daily. - Magnesium 250 mg tab Take 250 mg by mouth. - Flaxseed Oil oil Take 1,000 mg by mouth once daily. - ASCORBIC ACID, VITAMIN C, ORAL Take 100 mg by mouth once daily. With zinc - Zinc 50 mg tab Take by mouth. - fremanezumab-vfrm subcutaneus auto-injector 225 mg/1.5 mL (AJOVY) Inject 1.5 mL subcutaneously once every month. Do not shake. - UBRELVY 100 mg tablet TAKE 1 TABLET BY MOUTH AT ONSET OF MIGRAINE. MAY REPEAT IN 2 HOURS NEEDED. MAX 2 TABLET IN 24 HOURS - baclofen (LIORESAL) 10 mg tablet Take 10-20 mg by mouth at bedtime as needed. - famotidine (PEPCID) 40 mg tablet Take 40 mg by mouth as needed. - cetirizine (ZYRTEC) 10 mg tablet Take 10 mg by mouth as needed. - diphenhydrAMINE (BENADRYL) 25 mg tablet Take 50 mg by mouth every 6 hours as needed. - LORazepam (ATIVAN) 0.5 mg Take 0.5 mg by mouth twice daily as needed. - zonisamide (ZONEGRAN) 100 mg capsule Take 1 capsule by mouth once daily. - rimegepant (NURTEC ODT) 75 mg disintegrating tablet Take 1 tablet by mouth once daily as needed. No more than 1 dose in 24 hours. - prazosin (MINIPRESS) 5 mg cap Take 5 mg by mouth daily at bedtime. - mecobalamin, vitamin B12, 1,000 mcg ODT once daily. - VITAMIN D-3 125 mcg (5,000 unit) tab Take 5,000 Unit (more content not included)... Normal [facility] CNOVSPon 02-10-2022 CNOVSP Visit (SP) Office (H EMASA) MARCLEANA Tan ([id number]) 1985 F Date Time Provider Department 02/10/22 2:00 PM FUENTES AMARAL During your visit today, we recorded the following information about you: Temperature Pulse Respiration Blood pressure 97.9 degrees 97/minute 16/minute 124/59 Weight Height 98.2 kg 1.626 m Fuentes Amaral MD 02/12/2022 2:10 PM Signed HEMATOLOGY FOLLOW UP February 10, 2022 ([place]) Some elements in this clinic note that are critical to medical decision making have been carefully reviewed and included from a prior clinic note dated: November 18, 2021 (Munir) PCP and other physicians involved in patient's care: Cas Dowell (PCP), Rajinder Collins (surgery), Rubens Tim (ObGyn), DIAGNOSIS: Undiagnosed bleeding disorder, work-up pending - transition of care. 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 She has had multiple surgical, obstetric, gynecologic, and dental procedures in the past. Some of these procedures have been associated with postoperative bleeding complications. Patient also has multiple bleeding issues such as easy gum bleeding on a regular basis. Her family history is unclear given that she was adopted but one of her sons has symptoms similar to her's (recurrent epistaxis and easy gum bleeding). Work-up for bleeding disorder in May 2021 showed an abnormal platelet aggregometry. There was mildly decreased aggregation to low dose ADP, collagen, and arachidonic acid but normal aggregation to high dose ADP and epinephrine (low and high dose). These findings were considered to be nonspecific. Patient does not take any aspirin or NSAIDs. 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 She has seen medical genetics and work-up is ongoing pending insurance authorization. Based on her previous surgical experiences, any surgical bleeding may be minimized by using FFP and platelet transfusions prior to the procedure. Follow up after genetics work-up is complete which she was encouraged to pursue. Additional constitutional symptoms will need additional workup. Reviewed Mammography showing axillary tail lymph nodes. They appeared benign and today's exam was normal. If she remains concerned, we can re-examine her and set up a breast MRI. PLAN: Platelet electron microscopy Call results when available Consider functional medicine referral for DM and PCOS HPI: Patient has an extensive and longstanding history of bleeding issues. In 2008, she was seen by Dr. Shirley and was noted to have an elevated PTT of 36 seconds. This corrected by addition of FFP. 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 She reportedly tested negative for von Willebrand disease. Some of these labs have been scanned in our EMR (2011). Previous bleeding history includes menorrhagia (endometrial ablation in 2014 for which she needed FFP and hysterectomy in 2019 [unclear whether she got FFP]), epistaxis since childhood (resolved after sinus surgery in 2010), gum bleeding on a daily basis with minimal trauma, and a recent episode of bright red blood per rectum in March 2021 (no EGD or colonoscopy). Previous dental procedures include cavity fillings. It is unclear whether she had any bleeding issues after that procedure. She has had 2 normal vaginal deliveries with hemorrhage but patient does not remember if any medical or surgical intervention was done. She had a during her third and reports that the surgery took longer than anticipated. Referred to me in May 2021 for pre-operative clearance prior to elective inguinal hernia repair May 2021, PT 10 seconds, PTT 32.7 seconds, activity levels of factors II, V, IX, X, XI; activity levels of factor VIII elevated; no evidence of von Willebrand's disease; platelet function screen normal; platelet aggregometry notable showed mildly decreased aggregation to low dose ADP, collagen, and arachidonic acid but normal aggregation to high dose ADP and epinephrine (low and high dose). There was a normal stimulated dense granule release to all agonists. The ristocetin induced platelet aggregation showed a normal dose response. Overall, these findings were non-specific. July 2021, above labs repeated with the same result; TEG normal; fibrinogen antigen normal Updated Visit, February 10, 2022: Leana's platelet genetic testing is unremarkable. She has multiple complaints of bruising on her breasts. Endorsing Breasts have bruises without contact, nipples change color for no reason. Getting random rashes Breaking out in sweats Getting sick frequently. Has had workup for POTS in the past but no recommendations. Updated Visit, November 18, 2021: Leana is 35 and comes in (more content not included)... Normal [facility] 02-01-2022 BANNER Telephone (BANNER) MARCLEANA Tan ([id number]) 1985 F Date Time Provider Department 02/01/22 [facility] During your visit today, we recorded the following information about you: Fanny Green LPN 02/01/2022 10:43 AM Signed Allergies As of Date: 02/01/2022 Noted Allergy Reaction CEFACLOR 09/04/2011 12 - Shortness of Breath 10 - Anaphylaxis 7 - Swelling Comments: Other reaction(s): Unknown IODINATED CONTRAST MEDIA 02/23/2014 10 - Anaphylaxis Comments: Tolerated with pre-medication on 09/22/21 Other reaction(s): Unknown Does not tolerate with pre-medication FISH CONTAINING PRODUCTS 07/25/2021 4 - Hives SHELLFISH DERIVED 07/25/2021 4 - Hives ALEVE (NAPROXEN) 09/06/2020 18 - Angioedema ASPIRIN 02/23/2014 18 - Angioedema CEFTIN (CEFUROXIME AXETIL) 02/23/2014 12 - Shortness of Breath CLINDAMYCIN 02/23/2014 2 - Rash 12 - Shortness of Breath ERYTHROMYCIN 02/23/2014 7 - Swelling 12 - Shortness of Breath 16 - Unknown EUCALYPTUS 10/23/2020 10 - Anaphylaxis GATIFLOXACIN 2014 6 - Diarrhea LAVENDER (LAVANDULA ANGUSTIFOLIA) 09/06/2020 10 - Anaphylaxis PENICILLIN G BENZATHINE 08/18/2021 16 - Unknown PENICILLINS 02/23/2014 2 - Rash 9 - Itching SULFA (SULFONAMIDE ANTIBIOTICS) 05/18/2015 7 - Swelling 12 - Shortness of Breath VIOXX (ROFECOXIB) 06/08/2021 16 - Unknown FROYLAN 28 (DROSPIRENONE-ETHINYL ESTR*06/08/2021 14 - Other: See Comments Comments: Skin discoloration of feet with OCPs LATEX 02/23/2014 2 - Rash 9 - Itching 16 - Unknown Comments: Skin cracks and bleeds LEVOFLOXACIN 11/11/2020 2 - Rash Date Reviewed: 01/16/2022 Reviewed by: Bhargavi Saldana PA-C - Fully Assessed Reason for Visit: Appointment [186] Cmt: Download Pap Therapy Follow Up- Prescriptions as of 02/01/2022 - arformoterol (BROVANA) 15 mcg/2 mL nebulizer solution Inhale 2 mL as instructed every 12 hours. - levalbuterol tartrate HFA 45 mcg/actuation inhaler Inhale 1-2 Puffs as instructed every 4 hours as needed for wheezing/shortness of breath. - budesonide (PULMICORT) 0.5 mg/2 mL nebulizer solution Use 2 mL via nebulizer every 12 hours. Inhale over 5-15 minutes - SITagliptin (JANUVIA) 100 mg tablet Take 1 tablet by mouth once daily. - Magnesium 250 mg tab Take 250 mg by mouth. - Flaxseed Oil oil Take 1,000 mg by mouth once daily. - Ascorbic Acid 100 mg tablet Take 100 mg by mouth once daily. - Zinc 50 mg tab Take by mouth. - fremanezumab-vfrm subcutaneus auto-injector 225 mg/1.5 mL (AJOVY) Inject 1.5 mL subcutaneously once every month. Do not shake. - UBRELVY 100 mg tablet TAKE 1 TABLET BY MOUTH AT ONSET OF MIGRAINE. MAY REPEAT IN 2 HOURS NEEDED. MAX 2 TABLET IN 24 HOURS - baclofen (LIORESAL) 10 mg tablet Take 10-20 mg by mouth at bedtime as needed. - famotidine (PEPCID) 40 mg tablet Take 40 mg by mouth as needed. - cetirizine (ZYRTEC) 10 mg tablet Take 10 mg by mouth as needed. - diphenhydrAMINE (BENADRYL) 25 mg tablet Take 50 mg by mouth every 6 hours as needed. - LORazepam (ATIVAN) 0.5 mg Take 0.5 mg by mouth twice daily as needed. - zonisamide (ZONEGRAN) 100 mg capsule Take 1 capsule by mouth once daily. - rimegepant (NURTEC ODT) 75 mg disintegrating tablet Take 1 tablet by mouth once daily as needed. No more than 1 dose in 24 hours. - prazosin (MINIPRESS) 5 mg cap Take 5 mg by mouth daily at bedtime. - mecobalamin, vitamin B12, 1,000 mcg ODT once daily. - VITAMIN D-3 125 mcg (5,000 unit) tab Take 5,000 Units by mouth once daily. - EPINEPHrine 0.1 mg/0.1 mL AutoInjector as needed. - lamoTRIgine (LAMICTAL) 150 mg tablet Take 150 mg by mouth daily at bedtime. - sertraline (ZOLOFT) 100 mg tablet Take 200 mg by mouth daily at bedtime. - levothyroxine (SYNTHROID) 112 mcg tablet Take 112 mcg by mouth daily before breakfast. Takes 1.5 tablets on Wednesdays - montelukast (SINGULAIR) 10 mg tablet Take 10 mg by mouth once daily. 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] 04/07/2015 Symptomatic bradycardia [R00.1] 05/24/2021 Blood pressure instability [I99.8] 05/24/2021 Subjective muscle weakness [M62.81] 05/24/2021 Physical deconditioning [R53.81] 05/24/2021 Transient diplopia [H53.2] 05/24/2021 Orthostatic lightheadedness [R42] 05/24/2021 Screening for endocrine disorder [Z13.29] 06/14/2021 Primary hypothyroidism [E03.9] 06/14/2021 Moderate persistent asthma without complication*07/25/2021 Gastroesophageal reflux disease [K21.9] 07/25/2021 Allergic rhinitis [J30.9] 07/25/2021 Allergic reaction to contrast dye [T50.8X5A] 07/25/2021 Drug reaction [T50.905A] (more content not included)... Normal [facility] CBC with Diffon 01-30-2022 Abs. Basophil 0.04 k/uL Normal 0.00-0.20 [facility] Comment on above: Performed By: #### C P, CDP #### [address] [place] [address] Probate Judge: Belén Dale MD Abs.Imm.Granulocyte 0.04 k/uL Normal 0.00-0.30 [facility] Comment on above: Performed By: #### C P, CDP #### [address] [place], [place] [id number] Probate Judge: Belén Dale MD Abs.Neutrophil (Seg) 6.83 k/uL Normal 1.50-8.10 [facility] Comment on above: Performed By: #### C P, CDP #### [address] [place], [place] [id number] Probate Judge: Belén Dale MD Basophils/100 WBC (Bld) 0 % Normal 0-2 [facility] Comment on above: Performed By: #### C P, CDP #### [address] [place], [place] [id number] Probate Judge: Belén Dale MD Eosinophils (Bld) [#/Vol] 0.19 10*3/uL Normal 0.00-0.4 4 [facility] Comment on above: Performed By: #### C P, CDP #### [address] [place] [address] Probate Judge: Belén Dale MD Eosinophils/100 WBC (Bld) 2 % Normal 1-4 [facility] Comment on above: Performed By: #### C P, CDP #### [facility] [address] [place] [address] Probate Judge: Belén Dale MD Erythrocyte distribution wid th (RBC) [Ratio] 11.6 % Low 11.8-14.4 [facility] Comment on above: Performed By: #### C P, CDP #### [facility] [address] [place] [address] Probate Judge: Belén Dale MD Hematocrit (Bld) [Volume fraction] 46.1 % Normal 3 6.3-47.1 [facility] Comment on above: Performed By: #### C P, CDP #### [address] [place], [facility] Probate Judge: Belén Dale MD Hemoglobin (Bld) [Mass/Vol] 15.9 g/dL High 11.9-15. 1 [facility] Comment on above: Performed By: #### C P, CDP #### [address] [place] [address] Probate Judge: Belén Dale MD Immature granulocytes/100 WBC (Bld) 0 % Normal 0 [facility] Comment on above: Performed By: #### C P, CDP #### [address] [place], [place] [id number] Probate Judge: Belén Dale MD Lymphocytes (Bld) [#/Vol] 1.67 10*3/uL Normal 1.10-3.7 0 [facility] Comment on above: Performed By: #### C P, CDP #### [address] [place], [place] [id number] Probate Judge: Belén Dale MD Lymphocytes/100 WBC (Bld) 18 % Low 24-43 [facility] Comment on above: Performed By: #### C P, CDP #### [facility] [address] [place] [address] [place] [address] Probate Judge: Belén Dale MD MCH (RBC) [Entitic mass] 29.8 pg Normal 25.2-33.5 [facility] Comment on above: Performed By: #### C P, CDP #### [address] [place], [facility] Probate Judge: Belén Dale MD MCHC (RBC) [Mass/Vol] 34.5 g/dL Normal 28.4-34.8 [facility] Comment on above: Performed By: #### C P, CDP #### [address] [place] [id number] Probate Judge: Belén Dale MD MCV (RBC) [Entitic vol] 86.3 fL Normal 82.6-102.9 [facility] Comment on above: Performed By: #### C P, CDP #### [address] [place], [place] [id number] Probate Judge: Belén Dale MD Monocytes (Bld) [#/Vol] 0.37 10*3/uL Normal 0.10-1.20 [facility] Comment on above: Performed By: #### C P, CDP #### [address] [place], [place] [address] Probate Judge: Belén Dale MD Monocytes/100 WBC (Bld) 4 % Normal 3-12 [facility] Comment on above: Performed By: #### C P, CDP #### [address] [place], [place] [address] Probate Judge: Belén Dale MD Neutrophil (Seg) 76 % High 36-65 [facility] Comment on above: Performed By: #### C P, CDP #### [address] [place], [facility] Probate Judge: Belén Dale MD NRBC Automated 0.0 per 100 WBC Normal 0.0 [facility] Comment on above: Performed By: #### C P, CDP #### [facility] [address] [place] [id number] Probate Judge: Belén Dale MD Platelet mean volume (Bld) [Entitic vol] 9.4 fL Normal 8.1-13.5 [facility] Comment on above: Performed By: #### C P, CDP #### [facility] [address] [place], [place] [phone] Probate Judge: Belén Dale MD Platelets (Bld) [#/Vol] 248 10*3/uL Normal 138-453 [facility] Comment on above: Performed By: #### C P, CDP #### [address] [place] [address] Probate Judge: Belén Dale MD RBC (Bld) [#/Vol] 5.34 10*6/uL High 3.95-5.11 [facility] Comment on above: Performed By: #### C P, CDP #### [address] [place], [place] [id number] Probate Judge: Belén Dale MD WBC (Bld) [#/Vol] 9.1 10*3/uL Normal 3.5-11.3 [facility] Comment on above: Performed By: #### C P, CDP #### [address] [place] [address] Probate Judge: Belén Dale MD CT ABDOMEN PELVIS WO CONTRAS Ton 01-30-2022 CT ABDOMEN PELVIS WO CONTRAST EXAMINATION: CT OF THE ABDOMEN AND PELVIS WITHOUT CONTRAST 01/30/2022 1:59 pm TECHNIQUE: CT of the abdomen and pelvis was performed without the administration of intravenous contrast. Multiplanar reformatted images are provided for review. Automated exposure control, iterative reconstruction, and/or weight based adjustment of the mA/kV was utilized to reduce the radiation dose to as low as reasonably achievable. COMPARISON: Abdomen/pelvis CT 05/20/2021, 04/16/2021, edouard/20 04/2011 HISTORY: ORDERING SYSTEM PROVIDED HISTORY: left flankpain TECHNOLOGIST PROVIDED HISTORY: left flankpain Decision Support Exception - unselect if not a suspected or confirmed emergency medical condition->Emergency Medical Condition (MA) Is the patient ?->No FINDINGS: Lower Chest: Minimal subsegmental atelectasis versus scarring in the lung bases. No hiatal hernia. Liver: Hypoattenuated with some questionable sparing near the quyen hepatis. Biliary: Status post cholecystectomy. No intra or extrahepatic biliary ductal dilatation. Pancreas: Negative Spleen: Measures 14.6 cm AP and 13.3 cm in the coronal plane. Adrenals: Negative Kidneys: Subcentimeter hypoattenuation in the inferolateral aspect of the left kidney which was present previously, is too small to accurately characterize by CT, and likely represents a small cyst. Retroperitoneum: Negative. Peritoneal cavity: Negative. Bowel/mesentery: No dilated loops of bowel to suggest obstruction. Absence of the appendix with sutures along the inferomedial aspect of the cecum suggesting appendectomy. Moderate colonic stool burden. Pelvis: Decompressed urinary bladder. Absent uterus. Soft tissue fullness in the left adnexa compatible with the ovary. Additional soft tissue focus slightly more anteriorly relative to the expected position of the right ovary which is also associated with a punctate density and a more cystic focus which abuts the staple Rm from the appendectomy. No pelvic sidewall lymphadenopathy the by size criteria. Abdominal-Pelvic Wall/Remaining Soft Tissues: Small fat containing umbilical hernia. Diastasis of the rectus abdominus muscles with a loop of colon abutting the linea alba in the pelvis. Bones: 12 mm AP peripherally sclerotic lesion in the L2 vertebral body which has been present since 2011 and likely represents a benign etiology such as a hemangioma. No acute fracture or osseous destruction. IMPRESSION: [ 1. Hepatic steatosis. 2. Loop of colon abutting the abdominal wall fascia in the anterior pelvis between diastatic rectus abdominus muscles, similar to May 2021. 3. Moderate colonic stool burden which may represent constipation in the right clinical context. 4. Splenomegaly. 5. Small cystic region associated with what is likely the right ovary, probably a functional cyst. 6. Status post appendectomy, cholecystectomy, and hysterectomy. Interpreted by: Tesfaye Tillman MD Signed by: Tesfaye Tillman MD 01/30/22 Final result Normal [facility] l Comp Metabolic Profon 2021 Albumin [Mass/Vol] 4.7 g/dL Normal 3.5-5.2 [facility] Comment on above: Performed By: #### M G, BMPX, CDP #### [facility] [address] [place] [address] Dr[address] [place], [place] 0[address]383 Probate Judge: Belén Dale MD Albumin/Glob Ratio 1.5 Normal 1.0-2.5 [facility] Comment on above: Performed By: #### M G, BMPX, CDP #### [address] [place], [place] 5245483 Probate Judge: Belén Dale MD Alkaline Phos 76 U/L Normal 35-104 [facility] Comment on above: Performed By: #### M G, BMPX, CDP #### [address] [place] [address] Probate Judge: Belén Dale MD ALT [Catalytic activity/Vol] 40 U/L High 5-33 [facility] Comment on above: Performed By: #### M G, BMPX, CDP #### [address] [place] [address] Probate Judge: Belén Dale MD Anion gap [Moles/Vol] 10 mmol/L Normal 9-17 [facility] Comment on above: Performed By: #### M G, BMPX, CDP #### [address] [place] [address] Probate Judge: Belén Dale MD AST [Catalytic activity/Vol] 17 U/L Normal <32 [facility] Comment on above: Performed By: #### M G, BMPX, CDP #### [address] [place], [place] [address]83 Probate Judge: Belén Dale MD Bilirubin [Mass/Vol] 0.3 mg/dL Normal 0.3-1.2 [facility] Comment on above: Performed By: #### Ian Espinosa BMPX, CDP #### [facility] [address] [place], [place] [address]83 Probate Judge: Belén Dale MD BUN/CRE Ratio 10 Normal 9-20 [facility] Comment on above: Performed By: #### Ian Espinosa BMPX, CDP #### [facility] [address] [place], [place] 164[address]383 Probate Judge: Belén Dale MD Calcium [Mass/Vol] 10.4 mg/dL Normal 8.6-10.4 [facility] Comment on above: Performed By: #### Ian Espinosa BMPX, CDP #### [facility] [address] [place] [address] Dr[address] [place], [place] [id number] Probate Judge: Belén Dale MD Chloride [Moles/Vol] 105 mmol/L Normal 98-107 [facility] Comment on above: Performed By: #### Ian Espinosa BMPX, CDP #### [address] [place], [place] [address]10483 Probate Judge: Belén Dale MD CO2 [Moles/Vol] 25 mmol/L Normal 20-31 [facility] Comment on above: Performed By: #### Ian Espinosa BMPX, CDP #### [facility] [address] [place] [address] Dr[place], [place] 5145283 Probate Judge: Belén Dale MD Creatinine [Mass/Vol] 0.89 mg/dL Normal 0.50-0.90 [facility] Comment on above: Performed By: #### Ian Espinosa BMPX, CDP #### [facility] [address] [place] [address] Dr[place], [place] [address]83 Probate Judge: Belén Dlae MD GFR/1.73 sq M.predicted yogesh g non-blacks MDRD (S/P/Bld) [Vol rate/Area] mL/min/{1.73_m2} Normal >60 [facility] Comment on above: Result Comment: Effective Nov 07, 2021 These results are not intended for use in patients <18 years of age. eGFR results are calculated without a race factor using the 2020 CKD-EPI equation. Careful clinical correlation is recommended, particularly when comparing to results calculated using previous equations. The CKD-EPI equation is less accurate in patients with extremes of muscle mass, extra-renal metabolism of creatine, excessive creatine ingestion, or following therapy that affects renal tubular secretion. Performed By: #### M YANIRA EspinosaX, CDP #### [facility] [address] [place] [address] [place] [address] Probate Judge: Belén Dale MD Glucose [Mass/Vol] 125 mg/dL High 70-99 [facility] Comment on above: Performed By: #### CELESTINA Cam, CDP #### [facility] [address] [place] [address] [place] [address] Probate Judge: Belén Dale MD Potassium [Moles/Vol] 4.0 mmol/L Normal 3.7-5.3 [facility] Comment on above: Performed By: #### Ian Espinosa BMPX, CDP #### [address] [place] [address] Probate Judge: Belén Dale MD Protein [Mass/Vol] 7.9 g/dL Normal 6.4-8.3 [facility] Comment on above: Performed By: #### M Francisca BMPMakayla, CDP #### [address] [place] [address] Probate Judge: Belén Dale MD Sodium [Moles/Vol] 140 mmol/L Normal 135-144 [facility] Comment on above: Performed By: #### Ian Espinosa BMPX, CDP #### [facility] [address] [place] [address] [place] [address] Probate Judge: Belén Dale MD Urea nitrogen [Mass/Vol] 9 mg/dL Normal 6-20 [facility] Comment on above: Performed By: #### M G, BMPX, CDP #### [facility] [address] [place], [place] 9389183 Probate Judge: Belén Dael MD UA w/Reflex Cultureon 2021 Bilirubin, SemiQt,Ur Negative Normal NEG [facility] Comment on above: Performed By: #### M G, BMPX, CDP #### [facility] [address] [place] [address] Dr[address] [place], [place] [address]8883 Probate Judge: Belén Dale MD Blood, Urine Negative Normal NEG [facility] Comment on above: Performed By: #### M G, BMPX, CDP #### [address] [place], [place] 820[address]83 Probate Judge: Belén Dale MD Clarity (U) Clear Normal CLEAR [facility] Comment on above: Performed By: #### M G, BMPX, CDP #### [address] [place], [place] 2213483 Probate Judge: Belén Dale MD Color (U) Yellow Normal YEL [facility] Comment on above: Performed By: #### M G, BMPX, CDP #### [address] [place], [place] 7487383 Probate Judge: Belén Dale MD Glucose Ql (U) Negative Normal NEG [facility] Comment on above: Performed By: #### M G, BMPX, CDP #### [facility] [address] [place], [place] 1569083 Probate Judge: Belén Dale MD Ketones Ql (U) Negative Normal NEG [facility] Comment on above: Performed By: #### M G, BMPX, CDP #### [facility] [address] [place] [address] Dr[place], [place] 0233983 Probate Judge: Belén Dale MD Leukocyte esterase Test strip Ql (U) Negative Normal NEG [facility] Comment on above: Performed By: #### M G, BMPX, CDP #### [facility] [address] [place], [place] 6480783 Probate Judge: Belén Dale MD Nitrite,Ur Negative Normal NEG [facility] Comment on above: Performed By: #### M G, BMPX, CDP #### [facility] [address] [place], [place] 2900683 Probate Judge: Belén Dale MD PH,Ur 6.0 Normal 5.0-9.0 [facility] Comment on above: Performed By: #### M G, BMPX, CDP #### [address] [place], [place] 7804883 Probate Judge: Belén Dale MD Protein Ql (U) Negative Normal NEG [facility] Comment on above: Performed By: #### M Francisca, BMPX, CDP #### [address] [place], [place] 3052383 Probate Judge: Belén Dale MD Spec. [place],Ur >1.030 High 1.010-1.020 [facility] Comment on above: Performed By: #### M G, BMPX, CDP #### [address] [place], [place] 8865283 Probate Judge: Belén Dale MD Urobilinogen,Ur Normal Normal NORM [facility] Comment on above: Performed By: #### M G, BMPX, CDP #### [address] [place], [place] [address]83 Probate Judge: Belén Dale MD Urinalysis,Microon 2 Epithelial cells LM Ql (Urine sed) 2 TO 5 Normal 0 -25 [facility] Comment on above: Performed By: #### M G, BMPX, CDP #### [facility] [address] [place] [address] Probate Judge: Belén Dale MD Mucus Strands 2+ Abnormal NONE [facility] Comment on above: Performed By: #### M G, BMPX, CDP #### [facility] [address] [place], [place] 6[address]83 Probate Judge: Belén Dale MD Urine RBC's 0 TO 2 Normal 0-2 [facility] Comment on above: Performed By: #### M Francisca, BMPX, CDP #### [facility] [address] [place] [address] Probate Judge: Belén Dale MD Urine WBC's 0 TO 2 Normal 0-5 [facility] Comment on above: Performed By: #### Ian Espinosa, BMPX, CDP #### [facility] [address] [place] [address] Probate Judge: Belén Dale MD Coding Summary.on 01-24-2022 Coding Summary. CD:[id number] [file] cHNl (more content not included)... Normal [facility] Consent for Procedure/Surger yon 01-23-2022 Consent for Procedure/Surgery [id number]:127 Normal [facility] Consent for Treatmenton 01-05 Consent for Treatment [id number]:127 Normal [facility] Inpatient Patient Summaryon 01-23-2022 Inpatient Patient Summary [address], [place] [address] Clinical Summary Person Information Name: LEANA TRAN Age: 36 Years : 1985 Sex: Female PCP: CAS DOWELL MD Marital Status: Race: White Ethnicity: Non- or Language: Belizean Visit Id: Visit Reason: HEMATURIA URETHERAL STRICTURE Speciality: Acuity: Enc Type: Outpatient Med Service: Surgery Arrival: 01/23/2022 13:07:56 Discharge: Dispo Type: Address: [facility] [address] [facility] [id number] Provider Notes: Diagnosis: Problems Active Right inguinal hernia Type 2 diabetes mellitus Ovarian cyst Vitamin D deficiency Dyspareunia in female Arachnoid cyst Anxiety and depression Asthma Hypothyroidism GERD (gastroesophageal reflux disease) Smoking Status: Functional Status: Sensory Deficits: History of Falls: Mobility Assistance Prior to Admission: ADLs: Current Level of Assistance for Self-Care/Mobility: Cognitive Status: Allergies sulfa drugs (Allergy) macrolide antibiotics (Allergy) Motrin (Unknown) aspirin (Unknown) clindamycin (Unknown) Ceclor (Unknown) iodine (Unknown) penicillin (Unknown) Valtrex (Anaphylaxis) Latex (Rash) Betadine (Rash) Laboratory or Other Results This Visit (last charted value for your 01/23/2022 visit) No Laboratory or Other Results This Visit Measurements: Height: 162 cm Weight: Blood Pressure: Not Valued / Not Valued BMI: Procedures No Procedures Documented Immunizations No Immunizations Documented This Visit Final Med List: baclofen By Mouth 3 times a day. cetirizine (cetirizine 10 mg Tab) cholecalciferol (Vitamin D3) ciprofloxacin (Cipro 250 mg Tab) 1 tab po day prior to procedure. 1 tab po following procedure.. Refills: 0. duloxetine (Cymbalta) By Mouth. fluticasone nasal (Flonase Allergy Relief 50 mcg/inh nasal spray) every day. fremanezumab (Ajovy) Subcutaneous once a month. lamotrigine (lamotrigine 150 mg Tab) levalbuterol (Xopenex) Nebulized inhalation (aerosol) 3 times a day. levothyroxine (Synthroid 112 mcg Tab) By Mouth every day. montelukast (Singulair 10 mg Tab) By Mouth every day. multivitamin (Vitamin B12, Folate, and Acetylcysteine oral tablet) By Mouth every day. prazosin (prazosin 5 mg oral capsule) sertraline (sertraline 100 mg Tab) sitagliptin (Januvia 100 mg Tab) zonisamide (zonisamide 100 mg Cap) By Mouth every day. Care Team Members: Attending Physician: Marcell GREEN MD Consulting Physician: Referring Physician: Marcell GREEN MD Follow up: With: Address: When: LORAINE RUBALCAVA [address] [place] [id number] [facility] (1) Within 6 weeks Comments: Call for followup appointment in about six weeks. As discussed, PONCE Hargrove can further follow up on the left kidney abnormality noted on the kidney ultrasound. 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 Type Location Start [place] URO Office Visit [facility] EU Jim 02/28/2022 8:30 AM 02/28/2022 8:45 AM Confirmed Patient Education Information: EU - Cystoscopy with Urethral Dilation Discharge Instructions (Custom) Normal [facility] IntraOperative Documentson 1 03-26-2021 IntraOperative Documents [id number] Normal [facility] Main OR Intraoperative Recor don 01-23-2022 Main OR Intraoperative Record IntraOp Document Type FTURO Summary Primary Physician: Marcell GREEN MD Finalized Date/Time: 01/23/22 14:13:34 Pt. Name: LEANA TRAN/Sex: 1985 Female Med Rec #: [id number] Physician: Marcell GREEN MD Financial #: [id number] Pt. Type: O Room/Bed: / Admit/Disch: 01/23/22 13:07:56 - Institution: Case Times FTURO Entry 1 Patient Times In Room 01/23/22 13:58:00 Out Room 01/23/22 14:11:00 Procedure Times Start 01/23/22 14:03:00 Stop 01/23/22 14:07:00 Anesthesia Times Last Modified By: Luisana Lyn RN 01/23/22 14:13:30 Case Attendance FTURO Entry 1 Entry 2 Entry 3 Case Attendee Marcell GREEN MD ATTORNEY RECRUITER, Luisana Erwin RN Role Performed Surgeon - Primary Scrub - Primary Medical Records Assistant - Primary Time In 01/23/22 13:58:00 01/23/22 13:58:00 01/23/22 13:58:00 Time Out 01/23/22 14:11:00 01/23/22 14:11:00 01/23/22 14:11:00 Procedure CYSTOSCOPY LOCAL WITH CYSTOSCOPY LOCAL WITH CYSTOSCOPY LOCAL WITH URETHRAL DILATION(.) URETHRAL DILATION(.) URETHRAL DILATION(.) Comments Last Modified By: Luisana Lyn RN, RN, Luisana Vigil RN 01/23/22 14:13:31 01/23/22 14:13:31 01/23/22 14:13:31 Surgical Procedures FTURO Entry 1 Procedure Description Procedure CYSTOSCOPY LOCAL WITH Modifiers . URETHRAL DILATION Surgeon Description CYSTOSCOPY LOCAL WITH URETHRAL DILATION Primary Procedure Yes Primary Surgeon Marcell GREEN MD Start 01/23/22 14:03:00 Stop 01/23/22 14:07:00 Anesthesia Type Local Surgical Service Urology Wound Class 2 - Clean-Contaminated Last Modified By: Luisana Lyn RN 01/23/22 14:07:40 General Case Data FTURO Pre-Care Text: Classifies surgical wound, implements aseptic technique, initiates traffic control Entry 1 Case Information OR URO 1 FT Case Level None Wound Class 2 - Clean-Contaminated Specialty Urology Preop Diagnosis HEMATURIA URETHERAL Postop Same As Preop Yes STRICTURE Postop Diagnosis HEMATURIA URETHERAL Outcomes Met? Yes STRICTURE Last Modified By: Luisana Lyn RN 01/23/22 14:01:21 Post-Care Text: The patient is free from signs and symptoms of infection EU IntraOp - FTURO Pre-Care Text: Implements protective measures prior to operative or invasive procedure, confirms identity before the operative or invasive procedure, verifies operative procedure, surgical site, and laterality Entry 1 EU Perioperative Protocols Procedure(s) CYSTOSCOPY LOCAL WITH Patient Identity Birthday, ID Band URETHRAL DILATION(.) Verified (select at Check, Patient least 2): Participation Consents / H and P HandP, Surgery/Procedure Operative Site N/A Verified Consent Marking Verified Surgical Site Yes Laterality Verified Yes Verified Procedure Verified Yes Correct Patient Yes Position Verified Availability Equipment, Medication Time Out Luisana Lyn RN, Verified (If Participants Marcell GREEN MD, Applicable) Melly Powell CST Time Out Complete 01/23/22 14:01:00 Allergies Reviewed? Yes Allergies Reviewed Self/Patient With Body Position Supine Prep Area PERINEUM Prep Agents Hibiclens Skin. Condition Dry, Warm, Unable to Description UNABLE TO VISUALIZE DUE Visualize TO PATIENT PARTIALLY CLOTHED Additional None Specimens Collected Vitals - EU Blood Pressure 123/72 Pulse 89 bpm Respirations 16 br/min SPO2 99 % EBL 0 IandO - EU Total Intake 0 mL Total Output 0 mL Outcomes Met? Yes Last Modified By: Luisana Lyn RN 01/23/22 14:05:01 Post-Care Text: The patient is free from signs and symptoms of injury caused by extraneous objects Sign Out FTURO Entry 1 Before Patient Leaves OR Nurse verbally Yes Nurse verbally Yes confirms with the confirms with the team the name of team that the procedure(s) instrument, sponge, recorded and needle counts are correct (or N/A) Nurse verbally n/a Nurse verbally Yes confirms with the confirms with the team how the team whether there specimen is labeled are any equipment (including patient problems to be name), if applicable addressed Sign Out Complete 01/23/22 14:07:00 Last Modified By: Luisana Lyn RN 01/23/22 14:07:36 Case Comments Finalized By: Luisana Lyn RN Document Signatures Signed By: Luisana Lyn RN 01/23/22 14:13 Normal [facility] Main OR Preoperative Recordo n 01-23-2022 Main OR Preoperative Record Holding Area Document Type FTURO Summary Primary Physician: Marcell GREEN MD Finalized Date/Time: 01/23/22 13:57:09 Pt. Name: LEANA TRAN/Sex: 1985 Female Med Rec #: [id number] Physician: Marcell GREEN MD Financial #: [id number] Pt. Type: O Room/Bed: / Admit/Disch: 01/23/22 13:07:56 - Institution: Case Times Holding FTURO Pre-Care Text: Verifies consent for planned procedure, identifies individual values and wishes concerning care, includes family members in perioperative teaching Secures patient's records' belongings, and valuables, maintains patient's dignity and privacy, and maintains patient confidentiality Entry 1 In Holding 01/23/22 13:23:00 Outcomes Met? Yes Last Modified By: Veronica Hector LPN 01/23/22 13:23:59 Post-Care Text: The patient participates in decisions affecting his or her perioperative plan of care The patient's right to privacy is maintained Surgery Checklist FTURO Entry 1 Patient Birthday, Patient Procedure History and Physical, Identification: Participation Verification: Surgical Consent, With Patient NPO after Midnight: No Date/Time: 01/23/22 13:24:00 Personal Items: Glasses, Jewelry Personal Items rings, earrings, Comment: clothes, purse Limitations: na Complaints of Pain: No Pain Comment: na Skin Integrity Intact, [place], Warm, & Dry Vitals - EU Blood Pressure 123/72 Pulse 89 bpm Respirations 16 br/min SPO2 99 % RN Reviewed Yes Last Modified By: Luisana Lyn RN 01/23/22 13:57:08 General Comments: temp:36.2 Finalized By: Luisana Lyn RN Document Signatures Signed By: Veronica Hector LPN 01/23/22 13:27 Luisana Lyn RN 01/23/22 13:57 Normal [facility] Operative Reporton Operative Report Patient: Megan TRAN Age: 36 years Sex: Female : 1985 Associated Diagnoses: None Author: Marcell GREEN MD Procedure Operative Information Details: Date/ Time: 01/23/2022 14:11:00. 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 Post-Op Dx: Same. Anesthesia Type: Local. Procedure: Local Cystoscopy with Urethral Dilation. Complications: None. Risks/Benefits/Informed Consent: Surgical risks, benefits, details of the procedure have been explained to the patient, Full informed consent has been obtained. Intraoperative Information Prepped: Patient is brought back to the endoscopy suite, Patient is placed in modified dorso/lithotomy position, Patient prepped in the usual fashion with Betadine solution, 2% Xylocaine Jelly is placed per Urethra, After waiting several minutes the Cystoscope is introduced. The Urethra is: Tight, Tight at 16 Fr. . The Bladder is: Normal, Trabeculated Mild (1), No tumor, no stones. . The ureteral orifices: Show efflux of clear urine. The Urethra was dilated to: 30 Tajik w/ sounds. Devices Implanted: None. Removal: Cystoscope is removed, The patient tolerated it well. Postoperative Information Discharge: Patient is discharged home with antibiotic coverage, Follow up arranged, F/U with Lauren Rubalcava PA-C in about six weeks. To monitor urinary flow pattern after UD today. Informed pt. that renal ultrasound showed 1 cm benign tumor (AML). Follow up renal ultrasound in about six months is indicated, but Lauren will see pt. in six weeks. . Normal [facility] Comment on above: Result Comment: Elec tronically Signed By: Marcell GREEN MD\.br\Date and Time Signed: 01/23/22 14:13 EST Outpatient Surgery Discharge Instructionon 01-23-2022 Outpatient Surgery Discharge Instruction [address] [address] Patient Discharge Instructions PERSON INFORMATION Name: LEANA TRAN Date of : 1985 Current Date: 01/23/2022 14:10:50 PHYSICIANS Admitting Physician: Marcell GREEN MD Comment: Discharge Diagnosis: LEANA TRAN has been given the following list of follow-up instructions, prescriptions, and patient education materials: IF UNABLE TO CONTACT YOUR PHYSICIAN AND YOU FEEL IT IS AN EMERGENCY, GO TO THE NEAREST EMERGENCY ROOM OR CALL 911 Follow up: With: Address: When: LORAINE RUBALCAVA [address] [place] [phone] [facility] ([employer] Within 6 weeks Comments: Call for followup appointment in about six weeks. As discussed, PONCE Hargrove can further follow up on the left kidney abnormality noted on the kidney ultrasound. 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 Type Location Start [facility] URO Office Visit [facility] CARLA Fernandez 02/28/2022 8:30 AM 02/28/2022 8:45 AM Confirmed Comment: PATIENT EDUCATION INFORMATION Instructions: Cystoscopy with Urethral Dilation ? Voiding after the procedure: there may be some pain, urethral bleeding, burning, urgency, frequency and blood tinged urine following the procedure. These symptoms usually resolve within 2-5 days. Drink the amount of fluid it takes to keep the urine pink to yellow or clear in color. Drinking enough water and fluids will help to ease any discomfort after your procedure. ? If you are having problems that seem out of the ordinary, please call. ? If unable to contact your physician and you feel it is an emergency, go to the nearest emergency room or call 911 ? Diet ? you may resume your normal diet. ? Activity ? you may resume your normal activities ? Call if you have a fever over 100 degrees MARC Gramajo AMBER, have received the attached patient education materials/instructions and have verbalized understanding: May we do a follow up call? Yes No I was present when discharge instructions were given Patient Signature Date Clinican/Nurse Signature Date You may receive a survey from [employer] asking you to rate your care experience. Your feedback is important and will help us understand what we do well and how we can improve the quality of care we provide to you, your loved ones and our community. It?s an honor to serve you. Thank you for choosing [facility] Normal [facility] Hemoglobin A1Con 01-10-2022 Glucose [Mass/Vol] 117 mg/dL Normal [facility] Comment on above: Result Comment: The ADA and AACC recommend providing the estimated average glucose result to permit better patient understanding of their HBA1c result. Performed By: #### Ian Espinosa BMPX, CDP #### [facility] [address] [place], [facility] Probate Judge: Belén Dale MD HbA1c (Bld) [Mass fraction] 5.7 % Normal 4.0-6.0 [facility] Comment on above: Performed By: #### YANIRA CamX, CDP #### [facility] [address] [place], [facility] Probate Judge: Belén Dale MD CBC with Diffon 01-09-2022 Abs. Basophil <0.03 Normal 0.00-0.20 [facility] Comment on above: Performed By: #### Ian Espinosa BMPX, CDP #### [facility] [address] [place] [address] [address] [place], [place] [id number] Probate Judge: Belén Dale MD Abs. Eosinophil <0.03 Normal 0.00-0.44 [facility] Comment on above: Performed By: #### Ian Espinosa BMPX, CDP #### [facility] [address] [place] [address] Probate Judge: Belén Dale MD Abs.Imm.Granulocyte 0.09 k/uL Normal 0.00-0.30 [facility] Comment on above: Performed By: #### Ian Espinosa BMPX, CDP #### [facility] [address] [place] [address] Probate Judge: Belén Dale MD Abs.Neutrophil (Seg) 7.77 k/uL Normal 1.50-8.10 [facility] Comment on above: Performed By: #### M Francisca, BMPX, CDP #### [address] [place], [place] [id number] Probate Judge: Belén Dale MD Basophils/100 WBC (Bld) 0 % Normal 0-2 [facility] Comment on above: Performed By: #### M Francisca, BMPX, CDP #### [address] [place] [address] Probate Judge: Belén Dale MD Eosinophils/100 WBC (Bld) 0 % Low 1-4 [facility] Comment on above: Performed By: #### Ian Espinosa BMPX, CDP #### [address] [place], [facility] Probate Judge: Belén Dale MD Erythrocyte distribution wid th (RBC) [Ratio] 12.0 % Normal 11.8-14.4 [facility] Comment on above: Performed By: #### Ian Espinosa BMPX, CDP #### [address] [place] [address] Probate Judge: Belén Dale MD Hematocrit (Bld) [Volume fraction] 37.9 % Normal 3 6.3-47.1 [facility] Comment on above: Performed By: #### M Francisca, BMPX, CDP #### [address] [place] [address] Probate Judge: Belén Dale MD Hemoglobin (Bld) [Mass/Vol] 12.9 g/dL Normal 11.9-15. 1 [facility] Comment on above: Performed By: #### M Francisca BMPX, CDP #### [address] [place] [address] Probate Judge: Belén Dale MD Immature granulocytes/100 WBC (Bld) 1 % High 0 [facility] Comment on above: Performed By: #### Ian Espinosa BMPX, CDP #### [facility] [address] [place], [facility] Probate Judge: Belén Dale MD Lymphocytes (Bld) [#/Vol] 1.35 10*3/uL Normal 1.10-3.7 0 [facility] Comment on above: Performed By: #### Ian Espinosa, BMPX, CDP #### [facility] [address] [place], [place] [address] Probate Judge: Belén Dale MD Lymphocytes/100 WBC (Bld) 14 % Low 24-43 [facility] Comment on above: Performed By: #### Ian Espinosa BMPX, CDP #### [address] [place], [place] [address] Probate Judge: Belén Dale MD MCH (RBC) [Entitic mass] 29.7 pg Normal 25.2-33.5 [facility] Comment on above: Performed By: #### CELESTINA Cam, CDP #### [address] [place], [facility] Probate Judge: Belén Dale MD MCHC (RBC) [Mass/Vol] 34.0 g/dL Normal 28.4-34.8 [facility] Comment on above: Performed By: #### Ian Espinosa BMPX, CDP #### [address] [place], [facility] Probate Judge: Belén Dale MD MCV (RBC) [Entitic vol] 87.1 fL Normal 82.6-102.9 [facility] Comment on above: Performed By: #### Ian Espinosa BMPX, CDP #### [address] [place] [address] Probate Judge: Belén Dale MD Monocytes (Bld) [#/Vol] 0.40 10*3/uL Normal 0.10-1.20 [facility] Comment on above: Performed By: #### Ian Espinosa BMPX, CDP #### [facility] [address] [place], [place] [id number] Probate Judge: Belén Dale MD Monocytes/100 WBC (Bld) 4 % Normal 3-12 [facility] Comment on above: Performed By: #### Ian Espinosa BMPX, CDP #### [facility] [address] [place] [address] Probate Judge: Belén Dale MD Neutrophil (Seg) 81 % High 36-65 [facility] Comment on above: Performed By: #### Ian Espinosa BMPX, CDP #### [facility] [address] [place], [place] [id number] Probate Judge: Belén Dale MD NRBC Automated 0.0 per 100 WBC Normal 0.0 [facility] Comment on above: Performed By: #### CELESTINA Cam, CDP #### [address] [place], [place] [id number] Probate Judge: Belén Dale MD Platelet mean volume (Bld) [Entitic vol] 9.6 fL Normal 8.1-13.5 [facility] Comment on above: Performed By: #### CELESTINA Cam, CDP #### [facility] [address] [place] [address] [place] [address] Probate Judge: Belén Dale MD Platelets (Bld) [#/Vol] 238 10*3/uL Normal 138-453 [facility] Comment on above: Performed By: #### YANIRA CamX, CDP #### [facility] [address] [place], [place] [id number] Probate Judge: Belén Dale MD RBC (Bld) [#/Vol] 4.35 10*6/uL Normal 3.95-5.11 [facility] Comment on above: Performed By: #### Ian Espinosa BMPX, CDP #### [facility] [address] [place], [place] [id number] Probate Judge: Belén Dale MD WBC (Bld) [#/Vol] 9.6 10*3/uL Normal 3.5-11.3 [facility] Comment on above: Performed By: #### Ian Espinosa BMPX, CDP #### [facility] [address] [place], [place] [id number] Probate Judge: Belén Dale MD Comp Metabolic Pr/rfx MGon 1 03-12-2021 Albumin [Mass/Vol] 4.2 g/dL Normal 3.5-5.2 [facility] Comment on above: Performed By: #### Ian Espinosa BMPX, CDP #### [facility] [address] [place] [address] [place], [place] [phone] Probate Judge: Belén Dale MD Albumin/Glob Ratio 1.7 Normal 1.0-2.5 [facility] Comment on above: Performed By: #### YANIRA CamX, CDP #### [address] [place], [place] [id number] Probate Judge: Belén Dale MD Alkaline Phos 70 U/L Normal 35-104 [facility] Comment on above: Performed By: #### Ian Espinosa BMPX, CDP #### [facility] [address] [place], [place] [id number] Probate Judge: Belén Dale MD ALT [Catalytic activity/Vol] 24 U/L Normal 5-33 [facility] Comment on above: Performed By: #### Ian Espinosa BMPX, CDP #### [facility] [address] [place] [address] Probate Judge: Belén Dale MD Anion gap [Moles/Vol] 13 mmol/L Normal 9-17 [facility] Comment on above: Performed By: #### M G, BMPX, CDP #### [facility] [address] [place], [place] [id number] Probate Judge: Belén Dale MD AST [Catalytic activity/Vol] 15 U/L Normal <32 [facility] Comment on above: Performed By: #### M G, BMPX, CDP #### [facility] [address] [place], [place] [id number] Probate Judge: Belén Dale MD Bilirubin [Mass/Vol] 0.3 mg/dL Normal 0.3-1.2 [facility] Comment on above: Performed By: #### M G, BMPX, CDP #### [address] [place], [place] [id number] Probate Judge: Belén Dale MD BUN/CRE Ratio 16 Normal 9-20 [facility] Comment on above: Performed By: #### M G, BMPX, CDP #### [address] [place], [place] [address] Probate Judge: Belén Dale MD Calcium [Mass/Vol] 9.0 mg/dL Normal 8.6-10.4 [facility] Comment on above: Performed By: #### M G, BMPX, CDP #### [facility] [address] [place] [address] [place], [place] [id number] Probate Judge: Belén Dale MD Chloride [Moles/Vol] 105 mmol/L Normal 98-107 [facility] Comment on above: Performed By: #### M G, BMPX, CDP #### [facility] [address] [place], [place] [phone] Probate Judge: Belén Dale MD CO2 [Moles/Vol] 21 mmol/L Normal 20-31 [facility] Comment on above: Performed By: #### M G, BMPX, CDP #### [facility] [address] [place] [address] [place] [address] Probate Judge: Belén Dale MD Creatinine [Mass/Vol] 0.83 mg/dL Normal 0.50-0.90 [facility] Comment on above: Performed By: #### YANIRA CamX, CDP #### [facility] [address] [place] [address] [place] [address] Probate Judge: Belén Dale MD GFR/1.73 sq M.predicted yogesh g non-blacks MDRD (S/P/Bld) [Vol rate/Area] mL/min/{1.73_m2} Normal >60 [facility] Comment on above: Result Comment: Effective Nov 07, 2021 These results are not intended for use in patients <18 years of age. eGFR results are calculated without a race factor using the 2020 CKD-EPI equation. Careful clinical correlation is recommended, particularly when comparing to results calculated using previous equations. The CKD-EPI equation is less accurate in patients with extremes of muscle mass, extra-renal metabolism of creatine, excessive creatine ingestion, or following therapy that affects renal tubular secretion. Performed By: #### M CELESTINA Espinosa, CDP #### [address] [place] [address] Probate Judge: Belén Dale MD Glucose [Mass/Vol] 183 mg/dL High 70-99 [facility] Comment on above: Performed By: #### CELESTINA Cam, CDP #### [facility] [address] [place] [address] [place] [address] Probate Judge: Belén Dale MD Potassium [Moles/Vol] 3.7 mmol/L Normal 3.7-5.3 [facility] Comment on above: Performed By: #### YANIRA CamX, CDP #### [address] [place] [address] Probate Judge: Belén Dale MD Protein [Mass/Vol] 6.7 g/dL Normal 6.4-8.3 [facility] Comment on above: Performed By: #### M G, BMPX, CDP #### [facility] [address] [place] [address] Probate Judge: Belén Dale MD Sodium [Moles/Vol] 139 mmol/L Normal 135-144 [facility] Comment on above: Performed By: #### M G, BMPX, CDP #### [facility] [address] [place] [address] Probate Judge: Belén Dale MD Urea nitrogen [Mass/Vol] 13 mg/dL Normal 6-20 [facility] Comment on above: Performed By: #### M G, BMPX, CDP #### [address] [place] [address] Probate Judge: Belén Dale MD Resp Viral Panelon 2 Adenovirus Detected Abnormal [facility] Comment on above: Performed By: #### M G, BMPX, CDP #### [facility] [address] [place] [address] [place] [address] Probate Judge: Belén Dale MD [email or web address] Not detected Normal [facility] Comment on above: Performed By: #### M G, BMPX, CDP #### [address] [place], [place] [id number] Probate Judge: Belén Dale MD Bordetella pertussis Not detected Normal [facility] Comment on above: Performed By: #### M G, BMPX, CDP #### [facility] [address] [place], [place] [id number] Probate Judge: Belén Dale MD Chlamyd.pneumoniae Not detected Normal [facility] Comment on above: Performed By: #### M G, BMPX, CDP #### [facility] [address] [place], [place] [id number] Probate Judge: Belén Dale MD Coronavirus [id number] Not detected [facility] Comment on above: Performed By: #### M G, BMPX, CDP #### [facility] [address] [place] [address] Probate Judge: Belén Dale MD Coronavirus HKU1 Not detected [facility] Comment on above: Performed By: #### M G, BMPX, CDP #### [facility] [address] [place] [address] Probate Judge: Belén Dale MD Coronavirus [id number] Not detected [facility] Comment on above: Performed By: #### M G, BMPX, CDP #### [facility] [address] [place] [address] Probate Judge: Belén Dale MD Coronavirus OC43 Not detected [facility] Comment on above: Performed By: #### M G, BMPX, CDP #### [facility] [address] [place] [address] [place] [address] Probate Judge: Belén Dale MD Human Metapneumo Not detected [facility] Comment on above: Performed By: #### M G, BMPX, CDP #### [facility] [address] [place] [address] Probate Judge: Belén Dale MD Influenza A Not detected [facility] Comment on above: Performed By: #### M G, BMPX, CDP #### [facility] [address] [place] [address] Probate Judge: Belén Dale MD Influenza B Not detected [facility] Comment on above: Performed By: #### M G, BMPX, CDP #### [facility] [address] [place] [address] Probate Judge: Belén Dale MD Mycoplas.pneumoniae Not detected Normal [facility] Comment on above: Result Comment: Perf ormed by multiplexed nucleic acid assay. Performed By: #### M G, BMPX, CDP #### [facility] [address] [place], [place] [id number] Probate Judge: Belén Dale MD Parainfluenza 1 Not detected Normal [facility] Comment on above: Performed By: #### M G, BMPX, CDP #### [facility] [address] [place] [address] Probate Judge: Belén Dale MD Parainfluenza 2 Not detected Normal [facility] Comment on above: Performed By: #### M G, BMPX, CDP #### [facility] [address] [place], [place] [id number] Probate Judge: Belén Dale MD Parainfluenza 3 Not detected Normal [facility] Comment on above: Performed By: #### M G, BMPX, CDP #### [facility] [address] [place], [place] [id number] Probate Judge: Belén Dale MD Parainfluenza 4 Not detected Normal [facility] Comment on above: Performed By: #### M G, BMPX, CDP #### [facility] [address] [place] [address] Probate Judge: Belén Dale MD Resp Syncytial Virus Detected Abnormal [facility] Comment on above: Performed By: #### M G, BMPX, CDP #### [facility] [address] [place], [place] [id number] Probate Judge: Belén Dale MD Rhino/Enterovirus Not detected Normal [facility] Comment on above: Performed By: #### M G, BMPX, CDP #### [facility] [address] [place], [place] [id number] Probate Judge: Belén Dale MD SARS-CoV-2 (COVID-19) RNA NA A+probe Ql (Unsp spec) Not detected Normal NOTDET [facility] Comment on above: Performed By: #### M G, BMPX, CDP #### [facility] [address] [place], [place] [id number] Probate Judge: Belén Dale MD Basic Metabolic Profon 01-08 Anion gap [Moles/Vol] 16 mmol/L Normal 9-17 [facility] Comment on above: Performed By: #### M Francisca, BMPX, CDP #### [address] [place], [place] [id number] Probate Judge: Belén Dale MD BUN/CRE Ratio 12 Normal 9-20 [facility] Comment on above: Performed By: #### M G, BMPX, CDP #### [address] [place], [place] [id number] Probate Judge: Belén Dale MD Calcium [Mass/Vol] 9.5 mg/dL Normal 8.6-10.4 [facility] Comment on above: Performed By: #### M Francisca, BMPX, CDP #### [address] [place], [place] 301[address]83 Probate Judge: Belén Dale MD Chloride [Moles/Vol] 104 mmol/L Normal 98-107 [facility] Comment on above: Performed By: #### M G, BMPX, CDP #### [address] [place], [place] 1704283 Probate Judge: Belén Dale MD CO2 [Moles/Vol] 20 mmol/L Normal 20-31 [facility] Comment on above: Performed By: #### M G, BMPX, CDP #### [address] [place] [address] Probate Judge: Belén Dale MD Creatinine [Mass/Vol] 0.92 mg/dL High 0.50-0.90 [facility] Comment on above: Performed By: #### CELESTINA Cam, CDP #### [facility] [address] [place] [address] Probate Judge: Belén Dale MD GFR/1.73 sq M.predicted yogesh g non-blacks MDRD (S/P/Bld) [Vol rate/Area] mL/min/{1.73_m2} Normal >60 [facility] Comment on above: Result Comment: Effective Nov 07, 2021 These results are not intended for use in patients <18 years of age. eGFR results are calculated without a race factor using the 2020 CKD-EPI equation. Careful clinical correlation is recommended, particularly when comparing to results calculated using previous equations. The CKD-EPI equation is less accurate in patients with extremes of muscle mass, extra-renal metabolism of creatine, excessive creatine ingestion, or following therapy that affects renal tubular secretion. Performed By: #### M CELESTINA Espinosa, CDP #### [facility] [address] [place] [address] [place] [address] Probate Judge: Belén Dale MD Glucose [Mass/Vol] 187 mg/dL High 70-99 [facility] Comment on above: Performed By: #### CELESTINA Cam, CDP #### [facility] [address] [place] [address] Probate Judge: Belén Dale MD Potassium [Moles/Vol] 3.9 mmol/L Normal 3.7-5.3 [facility] Comment on above: Performed By: #### CELESTINA Cam, CDP #### [facility] [address] [place] [address] Probate Judge: Belén Dale MD Sodium [Moles/Vol] 140 mmol/L Normal 135-144 [facility] Comment on above: Performed By: #### M G, BMPX, CDP #### [facility] [address] [place] [address] Probate Judge: Belén Dale MD Urea nitrogen [Mass/Vol] 11 mg/dL Normal 6-20 [facility] Comment on above: Performed By: #### Ian Espinosa BMPX, CDP #### [facility] [address] [place], [facility] Probate Judge: Belén Dale MD Brain Natri. Peptideon 01-08 Natriuretic peptide B (Bld) [Mass/Vol] 485 pg/mL High <300 [facility] Comment on above: Result Comment: An age-independent cutoff point of 300 pg/ml has a 98% negative predictive value excluding acute heart failure. Performed By: #### Ian Espinosa BMPX, CDP #### [address] [place] [address] Probate Judge: Belén Dale MD CBC with Diffon 01-08-2022 Abs. Basophil <0.03 Normal 0.00-0.20 [facility] Comment on above: Performed By: #### CELESTINA Cam, CDP #### [facility] [address] [place] [address] Dr[address] [place], [place] [address] Probate Judge: Belén Dale MD Abs. Eosinophil <0.03 Normal 0.00-0.44 [facility] Comment on above: Performed By: #### YANIRA CamX, CDP #### [facility] [address] [place] [address] [place] [address] Probate Judge: Belén Dale MD Abs.Imm.Granulocyte 0.06 k/uL Normal 0.00-0.30 [facility] Comment on above: Performed By: #### Ian Espinosa BMPX, CDP #### [facility] [address] [place] [address] [place] [address] Probate Judge: Belén Dale MD Abs.Neutrophil (Seg) 9.46 k/uL High 1.50-8.10 [facility] Comment on above: Performed By: #### Ian Espinosa BMPX, CDP #### [address] [place], [place] 9958283 Probate Judge: Belén Dale MD Basophils/100 WBC (Bld) 0 % Normal 0-2 [facility] Comment on above: Performed By: #### Ian Espinosa BMPX, CDP #### [address] [place], [place] [id number] Probate Judge: Belén Dale MD Eosinophils/100 WBC (Bld) 0 % Low 1-4 [facility] Comment on above: Performed By: #### Ian Espinosa BMPX, CDP #### [address] [place], [place] [id number] Probate Judge: Belén Dale MD Erythrocyte distribution wid th (RBC) [Ratio] 11.9 % Normal 11.8-14.4 [facility] Comment on above: Performed By: #### Ian Espinosa BMPX, CDP #### [address] [place], [place] [id number] Probate Judge: Belén Dale MD Hematocrit (Bld) [Volume fraction] 43.8 % Normal 3 6.3-47.1 [facility] Comment on above: Performed By: #### Ian Espinosa BMPX, CDP #### [address] [place], [place] 9[address]83 Probate Judge: Belén Dale MD Hemoglobin (Bld) [Mass/Vol] 14.6 g/dL Normal 11.9-15. 1 [facility] Comment on above: Performed By: #### Ian Espinosa BMPX, CDP #### [address] [place] [address] Probate Judge: Belén Dale MD Immature granulocytes/100 WBC (Bld) 1 % High 0 [facility] Comment on above: Performed By: #### Ian Espinosa BMPX, CDP #### [facility] [address] [place], [place] [id number] Probate Judge: Belén Dale MD Lymphocytes (Bld) [#/Vol] 0.78 10*3/uL Low 1.10-3.7 0 [facility] Comment on above: Performed By: #### Ian Espinosa BMPX, CDP #### [facility] [address] [place], [facility] Probate Judge: Belén Dale MD Lymphocytes/100 WBC (Bld) 7 % Low 24-43 [facility] Comment on above: Performed By: #### Ian Espinosa BMPX, CDP #### [address] [place], [facility] Probate Judge: Belén Dale MD MCH (RBC) [Entitic mass] 29.6 pg Normal 25.2-33.5 [facility] Comment on above: Performed By: #### Ian Espinosa BMPX, CDP #### [address] [place], [place] 6[address]2883 Probate Judge: Belén Dale MD MCHC (RBC) [Mass/Vol] 33.3 g/dL Normal 28.4-34.8 [facility] Comment on above: Performed By: #### Ian Espinosa BMPX, CDP #### [address] [place], [facility] Probate Judge: Belén Dale MD MCV (RBC) [Entitic vol] 88.7 fL Normal 82.6-102.9 [facility] Comment on above: Performed By: #### Ian Espinosa BMPX, CDP #### [address] [place], [place] [id number] Probate Judge: Belén Dale MD Monocytes (Bld) [#/Vol] 0.19 10*3/uL Normal 0.10-1.20 [facility] Comment on above: Performed By: #### M Francisca, BMPX, CDP #### [facility] [address] [place], [facility] Probate Judge: Belén Dale MD Monocytes/100 WBC (Bld) 2 % Low 3-12 M [facility] Comment on above: Performed By: #### M Francisca, BMPX, CDP #### [facility] [address] [place], [facility] Probate Judge: Belén Dale MD Neutrophil (Seg) 90 % High 36-65 [facility] Comment on above: Performed By: #### Ian Espinosa, BMPX, CDP #### [facility] [address] [place], [facility] Probate Judge: Belén Dale MD NRBC Automated 0.0 per 100 WBC Normal 0.0 [facility] Comment on above: Performed By: #### Ian Espinosa BMPX, CDP #### [address] [place], [facility] Probate Judge: Belén Dale MD Platelet mean volume (Bld) [Entitic vol] 9.6 fL Normal 8.1-13.5 [facility] Comment on above: Performed By: #### Ian Espinosa BMPX, CDP #### [address] [place], [place] [address] Probate Judge: Belén Dale MD Platelets (Bld) [#/Vol] 254 10*3/uL Normal 138-453 [facility] Comment on above: Performed By: #### Ian Espinosa BMPX, CDP #### [address] [place], [facility] Probate Judge: Belén Dale MD RBC (Bld) [#/Vol] 4.94 10*6/uL Normal 3.95-5.11 [facility] Comment on above: Performed By: #### Ian G, BMPX, CDP #### [facility] [address] [place] [address] Probate Judge: Belén Dale MD WBC (Bld) [#/Vol] 10.5 10*3/uL Normal 3.5-11.3 [facility] Comment on above: Performed By: #### M Francisca, CELESTINA, CDP #### [facility] [address] [place], [place] [id number] Probate Judge: Belén Dale MD CT SOFT TISSUE NECK WO CONTR Shweta 01-08-2022 CT SOFT TISSUE NECK WO CONTRAST EXAMINATION: CT OF THE NECK WITHOUT CONTRAST 01/08/2022 TECHNIQUE: CT of the neck was performed without the administration of intravenous contrast. Multiplanar reformatted images are provided for review. Automated exposure control, iterative reconstruction, and/or weight based adjustment of the mA/kV was utilized to reduce the radiation dose to as low as reasonably achievable. COMPARISON: None. HISTORY: ORDERING SYSTEM PROVIDED HISTORY: Upper airway concerns TECHNOLOGIST PROVIDED HISTORY: Upper airway concerns Decision Support Exception - unselect if not a suspected or confirmed emergency medical condition->Emergency Medical Condition (MA) Is the patient ?->No FINDINGS: PHARYNX/LARYNX: The palatine tonsils are normal in appearance. The tongue is normal in appearance. The valleculae, epiglottis, aryepiglottic folds and pyriform sinuses appear unremarkable. The true and false vocal cords are normal in appearance. No mass or abscess is seen. SALIVARY GLANDS/THYROID: The parotid and submandibular glands appear unremarkable. The thyroid gland appears unremarkable. LYMPH NODES: No cervical or supraclavicular lymphadenopathy is seen. SOFT TISSUES: No appreciable soft tissue swelling or mass is seen. BRAIN/ORBITS/SINUSES: The visualized portion of the intracranial contents appear unremarkable. The visualized portion of the orbits, paranasal sinuses and mastoid air cells demonstrate no acute abnormality. Left maxillary sinus polyp versus mucous retention cyst is noted. LUNG APICES/SUPERIOR MEDIASTINUM: No focal consolidation is seen within the visualized lung apices. No superior mediastinal lymphadenopathy or mass. The visualized portion of the trachea appears unremarkable. BONES: No aggressive appearing lytic or blastic bony lesion. IMPRESSION: No acute abnormality of the soft tissue structures of the neck. Interpreted by: Justin Hatfield MD Signed by: Justin Hatfield MD 01/08/22 Final result Normal [facility] D-Dimer Teston 01-08-2022 D-Dimer Test 0.46 mg/L FEU Normal 0.00-0.59 [facility] Comment on above: Result Comment: When combined with a low clinical probability, a D dimer value of <0.50 mg/L FEU is considered negative for DVT and PE (negative predictive value of 98%, sensitivity of 97%). If this test is not being used to help rule out DVT and PE, then the following reference range should be utilized: 0.00 - 0.59 mg/L FEU. The D-Dimer assay is intended for use as an aid in the diagnosis of venous thromboembolism (DVT and PE) and the results should be interpreted in conjunction with the patient's medical history, clinical presentation, and other findings. Elevated levels of D-dimer activity can be seen in any state of coagulation activation and is not recommended in patients with therapeutic dose anticoagulant therapy for >24 hours, fibrinolytic therapy within the previous 7 days, trauma or surgery within the previous 4 weeks, disseminated malignancies, aortic aneurysm, sepsis, severe infections, pneumonia, severe skin infections, liver cirrhosis, advanced age, coronary disease, diabetes, and . A very low percentage of patients with DVT may yield D-dimer results below the cutoff of 0.5 mg/L FEU. This is known to be more prevalent in patients with distal DVT. Performed By: #### CELESTINA Cam, CDP #### [address] [place] [address] Probate Judge: Belén Dale MD Resp Viral Panelon Source: .NASOPHARYNGEAL SWAB Normal [facility] Comment on above: Performed By: ###CELESTINA Betancourt CDP #### [facility] [address] [place] [address] Probate Judge: Belén Dale MD TSH w/reflex to FT4on 2021 Thyroid Stim. Horm. 0.07 uIU/mL Low 0.30-5.00 [facility] Comment on above: Performed By: #### CELESTINA Cam, CDP #### [address] [place] [address] Probate Judge: Belén Dale MD Thyroxine, Freeon 01-08-2022 Thyroxine, Free 1.35 ng/dL Normal 0.93-1.70 [facility] Comment on above: Performed By: #### CELESTINA Cam, CDP #### [address] [place] [address] Probate Judge: Belén Dale MD Troponinon 01-08-2022 Troponin, High Sens <6 Normal 0-14 [facility] Comment on above: Result Comment: High Sensitivity Troponin values cannot be compared with other Troponin methodologies. Patients with high levels of Biotin oral intake (i.e >5mg/day) may have falsely decreased Troponin levels. Samples collected within 8 hours of biotin intake may require additional information for diagnosis. Performed By: #### CELESTINA Cam, CDP #### [address] [place] [address] Probate Judge: Belén Dale MD Venous Blood Gaseson 022 Body Temp. 37.0 Normal [facility] Comment on above: Performed By: #### CELESTINA Cam, CDP #### [address] [place] [address] Probate Judge: Belén Dale MD HCO3 (Bld) [Moles/Vol] 15.8 mmol/L Low 24.0-30.0 [facility] Comment on above: Performed By: #### CELESTINA aCm, CDP #### [address] [place] [address] Probate Judge: Belén Dale MD Negative Base Excess 5.2 mmol/L High 0.0-2.0 [facility] Comment on above: Performed By: #### CELESTINA Cam, CDP #### [address] [place] [id number] Probate Judge: Belén Dale MD O2 Device/Flow/% ROOM AIR [facility] Comment on above: Performed By: #### M Francisca, BMPX, CDP #### [facility] [address] [place], [place] 516[address]83 Probate Judge: Belén Dale MD Oxygen saturation in Blood 94.9 % High 60.0-85.0 [facility] Comment on above: Performed By: #### M Francisca, BMPX, CDP #### [facility] [address] [place], [place] 8[address]83 Probate Judge: Belén Dale MD pCO2 21.7 mm Hg Low 39-55 [facility] Comment on above: Performed By: #### Ian Espinosa BMPX, CDP #### [facility] [address] [place], [place] [phone] Probate Judge: Belén Dale MD pH (Bld) 7.481 [pH] High 7.32-7.42 [facility] Comment on above: Performed By: #### Ian Espinosa BMPX, CDP #### [address] [place], [place] 3116083 Probate Judge: Belén Dale MD pO2 66.6 mm Hg High 30.0-50.0 [facility] Comment on above: Performed By: #### M Francisca BMPX, CDP #### [facility] [address] [place], [place] 077[address]83 Probate Judge: Belén Dale MD Pt. Position [facility] Comment on above: Performed By: #### M Francisca BMPX, CDP #### [facility] [address] [place], [place] [id number] Probate Judge: Belén Dale MD Respiratory rate 31 /min [facility] Comment on above: Performed By: #### M G, BMPX, CDP #### [facility] [address] [place] [address] Probate Judge: Belén Dale MD XR CHEST PORTABLEon 01-09-20 XR CHEST PORTABLE EXAMINATION: ONE XRAY VIEW OF THE CHEST 01/08/2022 1:02 pm COMPARISON: 01/07/2022 HISTORY: ORDERING SYSTEM PROVIDED HISTORY: dyspnea TECHNOLOGIST PROVIDED HISTORY: dyspnea FINDINGS: The lungs are without acute focal process. There is no effusion or pneumothorax. The cardiomediastinal silhouette is stable. The osseous structures are stable. IMPRESSION: No acute process. Interpreted by: Antelmo Ramírez MD Signed by: Antelmo Ramírez MD 01/08/22 Final result Normal [facility] Basic Metab w/rfx MGon 01-07 Potassium [Moles/Vol] 3.1 mmol/L Low 3.7-5.3 [facility] Comment on above: Performed By: #### Ian Espinosa BMPX, CDP #### [facility] [address] [place] [address] [place] [address] Probate Judge: Belén Dale MD Anion gap [Moles/Vol] 14 mmol/L Normal 9-17 [facility] Comment on above: Performed By: #### M Francisca BMPX, CDP #### [facility] [address] [place] [address] [place] [address] Probate Judge: Belén Dale MD BUN/CRE Ratio 9 Normal -20 [facility] Comment on above: Performed By: #### M Francisca BMPX, CDP #### [facility] [address] [place] [address] Probate Judge: Belén Dale MD Calcium [Mass/Vol] 9.2 mg/dL Normal 8.6-10.4 [facility] Comment on above: Performed By: #### Ian Espinosa BMPX, CDP #### [facility] [address] [place] [address] [place] [address] Probate Judge: Belén Dale MD Chloride [Moles/Vol] 103 mmol/L Normal 98-107 [facility] Comment on above: Performed By: #### YANIRA CamX, CDP #### [facility] [address] [place] [address] Probate Judge: Belén Dale MD CO2 [Moles/Vol] 20 mmol/L Normal 20-31 [facility] Comment on above: Performed By: #### Ian Espinosa BMPX, CDP #### [facility] [address] [place] [address] Probate Judge: Belén Dale MD Creatinine [Mass/Vol] 0.95 mg/dL High 0.50-0.90 [facility] Comment on above: Performed By: #### CELESTINA Cam, CDP #### [facility] [address] [place] [address] Probate Judge: Belén Dale MD GFR/1.73 sq M.predicted yogesh g non-blacks MDRD (S/P/Bld) [Vol rate/Area] mL/min/{1.73_m2} Normal >60 [facility] Comment on above: Result Comment: Effective Nov 07, 2021 These results are not intended for use in patients <18 years of age. eGFR results are calculated without a race factor using the 2020 CKD-EPI equation. Careful clinical correlation is recommended, particularly when comparing to results calculated using previous equations. The CKD-EPI equation is less accurate in patients with extremes of muscle mass, extra-renal metabolism of creatine, excessive creatine ingestion, or following therapy that affects renal tubular secretion. Performed By: #### M CELESTINA Espinosa, CDP #### [facility] [address] [place] [address] [place] [address] Probate Judge: Belén Dale MD Glucose [Mass/Vol] 180 mg/dL High 70-99 [facility] Comment on above: Performed By: #### M CELESTINA Espinosa, CDP #### [facility] [address] [place] [id number] Probate Judge: Belén Dale MD Sodium [Moles/Vol] 137 mmol/L Normal 135-144 [facility] Comment on above: Performed By: #### Ian Espinosa BMPX, CDP #### [facility] [address] [place], [place] [phone] Probate Judge: Belén Dale MD Urea nitrogen [Mass/Vol] 9 mg/dL Normal 6-20 [facility] Comment on above: Performed By: #### M Francisca, BMPX, CDP #### [facility] [address] [place], [place] 9[address]83 Probate Judge: Belén Dale MD CBC with Diffon 01-07-2022 Abs. Basophil <0.03 Normal 0.00-0.20 [facility] Comment on above: Performed By: #### Ian Espinosa BMPX, CDP #### [facility] [address] [place] [address] [place], [facility] Probate Judge: Belén Dale MD Abs.Imm.Granulocyte <0.03 Normal 0.00-0.30 [facility] Comment on above: Performed By: #### Ian Espinosa BMPX, CDP #### [address] [place], [place] [id number] Probate Judge: Belén Dale MD Abs.Neutrophil (Seg) 3.22 k/uL Normal 1.50-8.10 [facility] Comment on above: Performed By: #### Ian Espinosa BMPX, CDP #### [facility] [address] [place], [place] [id number] Probate Judge: Belén Dale MD Basophils/100 WBC (Bld) 0 % Normal 0-2 M [facility] Comment on above: Performed By: #### Ian Espinosa BMPX, CDP #### [facility] [address] [place], [place] [id number] Probate Judge: Belén Dale MD Eosinophils (Bld) [#/Vol] 0.12 10*3/uL Normal 0.00-0.4 4 [facility] Comment on above: Performed By: #### M G, BMPX, CDP #### [facility] [address] [place], [place] [id number] Probate Judge: Belén Dale MD Eosinophils/100 WBC (Bld) 3 % Normal 1-4 [facility] Comment on above: Performed By: #### M G, BMPX, CDP #### [facility] [address] [place], [place] [id number] Probate Judge: Belén Dale MD Erythrocyte distribution wid th (RBC) [Ratio] 11.7 % Low 11.8-14.4 [facility] Comment on above: Performed By: #### M Francisca, BMPX, CDP #### [address] [place], [place] [id number] Probate Judge: Belén Dale MD Hematocrit (Bld) [Volume fraction] 41.1 % Normal 3 6.3-47.1 [facility] Comment on above: Performed By: #### M Francisca, BMPX, CDP #### [address] [place], [place] [id number] Probate Judge: Belén Dale MD Hemoglobin (Bld) [Mass/Vol] 14.1 g/dL Normal 11.9-15. 1 [facility] Comment on above: Performed By: #### M G, BMPX, CDP #### [address] [place], [place] [id number] Probate Judge: Belén Dale MD Immature granulocytes/100 WBC (Bld) 0 % Normal 0 [facility] Comment on above: Performed By: #### M G, BMPX, CDP #### [facility] [address] [place], [place] [id number] Probate Judge: Belén Dale MD Lymphocytes (Bld) [#/Vol] 1.14 10*3/uL Normal 1.10-3.7 0 [facility] Comment on above: Performed By: #### YANIRA CamX, CDP #### [facility] [address] [place], [place] [id number] Probate Judge: Belén Dale MD Lymphocytes/100 WBC (Bld) 23 % Low 24-43 [facility] Comment on above: Performed By: #### Ian Espinosa BMPX, CDP #### [facility] [address] [place] [address] Probate Judge: Belén Dale MD MCH (RBC) [Entitic mass] 29.8 pg Normal 25.2-33.5 [facility] Comment on above: Performed By: #### CELESTINA Cam, CDP #### [address] [place] [id number] Probate Judge: Belén Dale MD MCHC (RBC) [Mass/Vol] 34.3 g/dL Normal 28.4-34.8 [facility] Comment on above: Performed By: #### CELESTINA Cam, CDP #### [address] [place], [place] [phone] Probate Judge: Belén Dale MD MCV (RBC) [Entitic vol] 86.9 fL Normal 82.6-102.9 [facility] Comment on above: Performed By: #### YANIRA CamX, CDP #### [address] [place] [address] Probate Judge: Belén Dale MD Monocytes (Bld) [#/Vol] 0.36 10*3/uL Normal 0.10-1.20 [facility] Comment on above: Performed By: #### YANIRA CamX, CDP #### [facility] [address] [place], [place] [address] Probate Judge: Belén Dale MD Monocytes/100 WBC (Bld) 7 % Normal 3-12 [facility] Comment on above: Performed By: #### Ian Espinosa BMPX, CDP #### [facility] [address] [place], [place] [phone] Probate Judge: Belén Dale MD Neutrophil (Seg) 67 % High 36-65 [facility] Comment on above: Performed By: #### Ian Espinosa BMPX, CDP #### [facility] [address] [place], [place] [phone] Probate Judge: Belén Dale MD NRBC Automated 0.0 per 100 WBC Normal 0.0 [facility] Comment on above: Performed By: #### Ian Espinosa BMPX, CDP #### [address] [place], [place] [phone] Probate Judge: Belén Dale MD Platelet mean volume (Bld) [Entitic vol] 9.5 fL Normal 8.1-13.5 [facility] Comment on above: Performed By: #### Ian Espinosa BMPX, CDP #### [address] [place], [place] [id number] Probate Judge: Belén Dale MD Platelets (Bld) [#/Vol] 180 10*3/uL Normal 138-453 [facility] Comment on above: Performed By: #### Ian Espinosa BMPX, CDP #### [address] [place] [address] Probate Judge: Belén Dale MD RBC (Bld) [#/Vol] 4.73 10*6/uL Normal 3.95-5.11 [facility] Comment on above: Performed By: #### Ian Espinosa BMPX, CDP #### [address] [place] [address] Probate Judge: Belén Dale MD WBC (Bld) [#/Vol] 4.9 10*3/uL Normal 3.5-11.3 [facility] Comment on above: Performed By: #### Ian Espinosa BMPX, CDP #### [facility] [address] [place] [address] [place] [address] Probate Judge: Belén Dale MD Flu A/B Ag Detectionon 01-07 Flu A Ag Detection Negative Normal NEG [facility] Comment on above: Result Comment: for Influenza A Antigen Performed By: #### Ian Espinosa BMPMakayla, CDP #### [facility] [address] [place] [address] Dr[address] [place], [place] [phone] Probate Judge: Belén Dale MD Flu B Ag Detection Negative Normal NEG [facility] Comment on above: Result Comment: for Influenza B Antigen. Performed By: #### CELESTINA Cam, CDP #### [address] [place] [address] Probate Judge: Belén Dale MD Magnesiumon 01-07-2022 Magnesium [Mass/Vol] 1.8 mg/dL Normal 1.6-2.6 [facility] Comment on above: Performed By: #### CELESTINA Cam, CDP #### [address] [place] [address] Probate Judge: Belén Dale MD [id number] 01-07-2022 SARS-CoV-2 (COVID-19) RNA NA A+probe Ql (Unsp spec) Not detected Normal NOTDET [facility] Comment on above: Result Comment: Rapid NAAT: The specimen is NEGATIVE for SARS-CoV-2, the novel coronavirus associated with COVID-19. The ID NOW COVID-19 assay is designed to detect the virus that causes COVID-19 in patients with signs and symptoms of infection who are suspected of COVID-19. An individual without symptoms of COVID-19 and who is not shedding SARS-CoV-2 virus would expect to have a negative (not detected) result in this assay. Negative results should be treated as presumptive and, if inconsistent with clinical signs and symptoms or necessary for patient management, should be tested with an alternative molecular assay. Negative results do not preclude SARS-CoV-2 infection and should not be used as the sole basis for patient management decisions. Fact sheet for Healthcare Providers: https://www.fda.gov/media/310767/download Fact sheet for Patients: https://www.fda.gov/media/300135/download Methodology: Isothermal Nucleic Acid Amplification Performed By: #### C OVRB #### [facility] [address] [place] [address] Probate Judge: Belén Dale MD XR CHEST PORTABLEon 01-08-20 XR CHEST PORTABLE EXAMINATION: ONE XRAY VIEW OF THE CHEST 01/07/2022 12:51 am COMPARISON: 06/21/2021 HISTORY: ORDERING SYSTEM PROVIDED HISTORY: Shortness of breath TECHNOLOGIST PROVIDED HISTORY: Shortness of breath FINDINGS: The lungs are underinflated, resulting in vascular crowding and subsegmental atelectasis. Streaky right infrahilar opacities. No sizable effusion or pneumothorax. The cardiac silhouette and mediastinal contours are within normal limits. No acute bony abnormality. IMPRESSION: Mildly hypoaerated lungs. Streaky right basilar airspace opacities may be related to atelectasis or infection. Interpreted by: Vania Rodríguez MD Signed by: Vania Rodríguez MD 01/07/22 Final result Normal [facility] l XR NECK SOFT TISSUEon 2021 XR NECK SOFT TISSUE EXAMINATION: TWO XRAY VIEWS OF THE NECK SOFT TISSUES 01/07/2022 1:58 am COMPARISON: None. HISTORY: ORDERING SYSTEM PROVIDED HISTORY: cough, throat pain TECHNOLOGIST PROVIDED HISTORY: cough, throat pain FINDINGS: Findings suggestive of significantly enlarged adenoid at the posterior aspect of nasopharynx. The AP thickness of adenoid appears to be 1.4 cm. The epiglottis appears to be of normal thickness. The retropharyngeal soft tissues are of normal thickness. The laryngotracheal airways are grossly normally patent. IMPRESSION: Evidence of considerably enlarged adenoids in the nasopharynx with AP thickness of 1.4 cm. Normal-appearing epiglottis and the retropharyngeal soft tissues. Interpreted by: Susy Martin MD Signed by: Susy Martin MD 01/07/22 Final result Normal [facility] KIDNEYSon 12-26-2021 US KIDNEYS EXAMINATION: US RYLEE COELHO HISTORY: [place] hematuria COMPARISON: 10/20/2020, 11/14/2021 TECHNIQUE: Ultrasound examination was performed of the bladder. FINDINGS: Right Kidney: Normal in size, contour and echotexture with no solid mass, hydronephrosis or obstructing nephrolithiasis. The cortex measures 1.5 cm. Height: 3.7 cm Length: 10.8 cm Width: 4.5 cm Left Kidney: Normal in size, contour and echotexture. Focal 1.0 x 0.7 0.6 cm area of hyperechogenicity in the mid to lower pole cortex. No hydronephrosis or obstructing nephrolithiasis. The cortex measures 1 cm Height: 4.7 cm Length: 12.1 cm Width: 5.1 cm Urinary bladder is normal in appearance with 154 mL. Incidental echogenic liver IMPRESSION: 1 cm echogenic focus of the left kidney, and retrospectively seen on CT axial image 64. 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 6 month follow-up is recommended to document stability Electronically authenticated by: BELÉN ANDRADE Date: 2021-12-26 07:22 Normal [facility] LEANA TRAN ([id number]) 1985 F Date Time Provider Department 12/20/21 JUAN RAMON DODD During your visit today, we recorded the following information about you: CARINE Carrillo 12/20/2021 10:40 AM Signed Results left on patient voicemail. Leana Tran's bleeding disorders panel through [facility] was non-diagnostic or negative for a pathogenic variant. 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 This is a common polymorphism in the general population present in ~10% of individuals of white ancestry and ~1/3 of those of South ancestry. This polymorphism is not expected to contribute to disease risk for the patient. Please see [employer] message for further discussion. Juan Ramon Dodd, [facility] Licensed, Certified Genetic Counselor Epic CC: Dr. Fuentes Craig Allergies As of Date: 12/20/2021 Noted Allergy Reaction CEFACLOR 09/04/2011 12 - Shortness of Breath 10 - Anaphylaxis 7 - Swelling Comments: Other reaction(s): Unknown IODINATED CONTRAST MEDIA 02/23/2014 10 - Anaphylaxis Comments: Tolerated with pre-medication on 09/22/21 Other reaction(s): Unknown Does not tolerate with pre-medication FISH CONTAINING PRODUCTS 07/25/2021 4 - Hives SHELLFISH DERIVED 07/25/2021 4 - Hives ALEVE (NAPROXEN) 09/06/2020 18 - Angioedema ASPIRIN 02/23/2014 18 - Angioedema CEFTIN (CEFUROXIME AXETIL) 02/23/2014 12 - Shortness of Breath CLINDAMYCIN 02/23/2014 2 - Rash 12 - Shortness of Breath ERYTHROMYCIN 02/23/2014 7 - Swelling 12 - Shortness of Breath 16 - Unknown EUCALYPTUS 10/23/2020 10 - Anaphylaxis GATIFLOXACIN 2014 6 - Diarrhea LAVENDER (LAVANDULA ANGUSTIFOLIA) 09/06/2020 10 - Anaphylaxis PENICILLIN G BENZATHINE 08/18/2021 16 - Unknown PENICILLINS 02/23/2014 2 - Rash 9 - Itching SULFA (SULFONAMIDE ANTIBIOTICS) 05/18/2015 7 - Swelling 12 - Shortness of Breath VIOXX (ROFECOXIB) 06/08/2021 16 - Unknown FROYLAN 28 (DROSPIRENONE-ETHINYL ESTR*06/08/2021 14 - Other: See Comments Comments: Skin discoloration of feet with OCPs LATEX 02/23/2014 2 - Rash 9 - Itching 16 - Unknown Comments: Skin cracks and bleeds LEVOFLOXACIN 11/11/2020 2 - Rash Date Reviewed: 11/18/2021 Reviewed by: Radha Roger - Fully Assessed Reason for Visit: Results [95] Prescriptions as of 12/20/2021 - arformoterol (BROVANA) 15 mcg/2 mL nebulizer solution Inhale 2 mL as instructed every 12 hours. - levalbuterol tartrate HFA 45 mcg/actuation inhaler Inhale 1-2 Puffs as instructed every 4 hours as needed for wheezing/shortness of breath. - budesonide (PULMICORT) 0.5 mg/2 mL nebulizer solution Use 2 mL via nebulizer every 12 hours. Inhale over 5-15 minutes - SITagliptin (JANUVIA) 100 mg tablet Take 1 tablet by mouth once daily. - Magnesium 250 mg tab Take 250 mg by mouth. - Flaxseed Oil oil Take 1,000 mg by mouth once daily. - Ascorbic Acid 100 mg tablet Take 100 mg by mouth once daily. - Zinc 50 mg tab Take by mouth. - fremanezumab-vfrm subcutaneus auto-injector 225 mg/1.5 mL (AJOVY) Inject 1.5 mL subcutaneously once every month. Do not shake. - UBRELVY 100 mg tablet TAKE 1 TABLET BY MOUTH AT ONSET OF MIGRAINE. MAY REPEAT IN 2 HOURS NEEDED. MAX 2 TABLET IN 24 HOURS - baclofen (LIORESAL) 10 mg tablet Take 10-20 mg by mouth at bedtime as needed. - famotidine (PEPCID) 40 mg tablet Take 40 mg by mouth as needed. - cetirizine (ZYRTEC) 10 mg tablet Take 10 mg by mouth as needed. - diphenhydrAMINE (BENADRYL) 25 mg tablet Take 50 mg by mouth every 6 hours as needed. - LORazepam (ATIVAN) 0.5 mg Take 0.5 mg by mouth twice daily as needed. - zonisamide (ZONEGRAN) 100 mg capsule Take 1 capsule by mouth once daily. - rimegepant (NURTEC ODT) 75 mg disintegrating tablet Take 1 tablet by mouth once daily as needed. No more than 1 dose in 24 hours. - prazosin (MINIPRESS) 5 mg cap Take 5 mg by mouth daily at bedtime. - mecobalamin, vitamin B12, 1,000 mcg ODT once daily. - VITAMIN D-3 125 mcg (5,000 unit) tab Take 5,000 Units by mouth once daily. - EPINEPHrine 0.1 mg/0.1 mL AutoInjector as needed. - lamoTRIgine (LAMICTAL) 150 mg tablet Take 150 mg by mouth daily at bedtime. - sertraline (ZOLOFT) 100 mg tablet Take 200 mg by mouth daily at bedtime. - levothyroxine (SYNTHROID) 112 mcg tablet Take 112 mcg by mouth daily before breakfast. Takes 1.5 tablets on Wednesdays - montelukast (SINGULAIR) 10 mg tablet Take 10 mg by mouth once daily. 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 Normal [facility] CBC AUTO DIFFon 12-12-2021 BASO # 0.0 103/ul Normal 0.0-0.[address] [facility] Comment on above: Performed By: #### C MP #### [facility] [address] [place] [address] Dr. Nilton Mccall Basophils/100 WBC (Bld) 0.5 % Normal 0.2-2.0 [facility] Comment on above: Performed By: #### C MP #### [facility] [address] [place] [address] Dr. Nilton Mccall EO # 0.2 103/ul Normal 0.0-0.[address] [facility] Comment on above: Performed By: #### C MP #### [facility] [address] [place] [address] Dr. Nilton Mccall Eosinophils/100 WBC (Bld) 3.2 % Normal 0.9-7.0 [facility] Comment on above: Performed By: #### C MP #### [facility] [address] [place] [address] Dr. Nilton Mccall Erythrocyte distribution wid th (RBC) [Ratio] 11.9 % Normal 11.0-15.0 [facility] Comment on above: Performed By: #### C MP #### [facility] [address] [address] [address] Nilton Mccall Hematocrit (Bld) [Volume fraction] 42.8 % Normal 3 6.0-48.0 [facility] Comment on above: Performed By: #### C MP #### [facility] [address] [address] [address] Nilton Mccall Hemoglobin (Bld) [Mass/Vol] 14.4 g/dL Normal 12.0-16. 0 [facility] Comment on above: Performed By: #### C MP #### [facility] [address] [address] [address] Nilton Mccall IG # 0.02 10e3/ul Normal 0.00-0.03 [facility] Comment on above: Performed By: #### C MP #### [facility] [address] [place] [address] Dr. Nilton Mccall IG % 0.3 % Normal 0.0-0.[address] [facility] Comment on above: Performed By: #### C MP #### [facility] [address] [place] [address] Dr. Nilton Mccall LYMPH # 1.4 103/ul Normal 1.2-3.[address] [facility] Comment on above: Performed By: #### C MP #### [facility] [address] [place] [address] Dr. Nilton Mccall Lymphocytes/100 WBC (Bld) 22.3 % Normal 20.5-60.0 [facility] Comment on above: Performed By: #### C MP #### [facility] [address] [place] [address] Dr. Nilton Mccall MANUAL DIFF REQ NO Normal [facility] Comment on above: Performed By: #### C MP #### [facility] [address] [place] [address] Dr. Nilton Mccall MCH (RBC) [Entitic mass] 28.9 pg Normal 26.7-34.0 [facility] Comment on above: Performed By: #### C MP #### [facility] [address] [place] [address] Dr. Nilton Mccall MCHC (RBC) [Mass/Vol] 33.6 g/dL Normal 29.9-35.2 [facility] Comment on above: Performed By: #### C MP #### [facility] [address] [place] [address] Dr. Nilton Mccall MCV (RBC) [Entitic vol] 85.9 fL Normal 81.0-99.0 [facility] Comment on above: Performed By: #### C MP #### [facility] [address] [place] [address] Dr. Nilton Mccall MONO # 0.3 103/ul Normal 0.3-0.8 [facility] Comment on above: Performed By: #### C MP #### [facility] [address] [place] [address] Dr. Nilton Mccall Monocytes/100 WBC (Bld) 4.9 % Normal 1.7-12.0 [facility] Comment on above: Performed By: #### C MP #### [facility] [address] [place] [address] Dr. Nilton Mccall NEUT # 4.4 103/ul Normal 1.4-6.[address] [facility] Comment on above: Performed By: #### C MP #### [facility] [address] [place] [address] Dr. Nilton Mccall Neutrophils/100 WBC (Bld) 68.8 % Normal 43.0-75.0 [facility] Comment on above: Performed By: #### C MP #### [facility] [address] [place] [address] Dr. Nilton Mccall Platelet mean volume (Bld) [Entitic vol] 9.9 fL Normal 9.5-13.5 [facility] Comment on above: Performed By: #### C MP #### [facility] [address] [place] [address] Dr. Nilton Mccall PLT 237 103/ul Normal 150-450 [facility] Comment on above: Performed By: #### C MP #### [facility] [address] [address] [address] Nilton Mccall RBC 4.98 106/ul Normal 4.20-5.40 [facility] Comment on above: Performed By: #### C MP #### [facility] [address] [place] [address] Dr. Nilton Mccall WBC 6.3 103/ul Normal 4.0-11.0 [facility] Comment on above: Performed By: #### C MP #### [facility] [address] [place] [address] Dr. Nilton Mccall GLYCOHEMOGLOBIN A1Con 2021 ADA RECOMMENDATION SEE BELOW Normal [facility] Comment on above: Result Comment: ADA RECOMMENDED LIMIT 4.0 - 6.0 ADA THERAPEUTIC TARGET < 7.0 ACTION SUGGESTED > 7.0 Performed By: #### P T, PTT #### [facility] [address] [place] [address] Dr. Nilton Mccall Glucose [Mass/Vol] 120 mg/dL Normal [facility] Comment on above: Performed By: #### P T, PTT #### [facility] [address] [place] [address] Dr. Nilton Mccall HbA1c (Bld) [Mass fraction] 5.8 % Normal 4.5-6.2 [facility] Comment on above: Performed By: #### P T, PTT #### [facility] [address] [place] [address] Dr. Nilton Mccall LIPID PROFILEon 12-12-2021 CHOL-HDL RATIO NORM SEE BELOW Normal [facility] Comment on above: Result Comment: 3.3 - 4.4 LOW RISK 4.4 - 7.1 AVERAGE RISK 7.1 - 11.0 MODERATE RISK >11.0 HIGH RISK Performed By: #### P T, PTT #### [facility] [address] [place] [address] Dr. Nilton Mccall Cholesterol [Mass/Vol] 225 mg/dL Critically high <=200 [facility] Comment on above: Performed By: #### P T, PTT #### [facility] [address] [place] [address] Dr. Nilton Mccall Cholesterol in HDL [Mass/Vol] 32 mg/dL Critically low 40 -60 [facility] Comment on above: Performed By: #### P T, PTT #### [facility] [address] [address] [address] Nilton Mccall Cholesterol in LDL [Mass/Vol] 132.8 mg/dL Normal [facility] Comment on above: Performed By: #### P T, PTT #### [facility] [address] [address] [address] Nilton Mccall Cholesterol.total/Cholestero l in HDL [Mass ratio] 7.0 {ratio} Normal [facility] Comment on above: Performed By: #### P T, PTT #### [facility] [address] [place] [address] Dr. Nilton Mccall HDL NORMAL > or = 60 mg/dl - LO W CARDIOVASCULAR RISK <40 mg/dl - HIGH CARDIOVASCULAR RISK Normal [facility] Comment on above: Performed By: #### P T, PTT #### [facility] [address] [place] [address] Dr. Nilton Mccall LDL CALC NORMAL SEE BELOW Normal [facility] Comment on above: Result Comment: <100 mg/dl OPTIMAL 100 - 129 mg/dl NEAR OR ABOVE OPTIMAL 130 - 159 mg/dl BORDERLINE HIGH 160 - 189 mg/dl HIGH >190 mg/dl VERY HIGH Performed By: #### P T, PTT #### [facility] [address] [address] [address] Nilton Mccall Triglyceride [Mass/Vol] 301 mg/dL Critically high <=150 [facility] Comment on above: Performed By: #### P T, PTT #### [facility] [address] [address] [address] Nilton Mccall VLDL CALC 60.2 mg/dL Normal [facility] Comment on above: Performed By: #### P T, PTT #### [facility] [address] [place] [address] Dr. Nilton Mccall LIVER PROFILEon 12-12-2021 Albumin [Mass/Vol] 4.0 g/dL Normal 3.4-5.0 [facility] Comment on above: Performed By: #### P T, PTT #### [facility] [address] [address] [address] Nilton Mccall Albumin/Globulin [Mass ratio] 1.1 {ratio} Normal [facility] Comment on above: Performed By: #### P T, PTT #### [facility] [address] [address] [address] Nilton Mccall ALP [Catalytic activity/Vol] 70 U/L Normal 46-116 [facility] Comment on above: Performed By: #### P T, PTT #### [facility] [address] [place] [address] Dr. Nilton Mccall ALT [Catalytic activity/Vol] 30 U/L Normal 14-59 [facility] Comment on above: Performed By: #### P T, PTT #### [facility] [address] [place] [address] Dr. Nilton Mccall AST [Catalytic activity/Vol] 15 U/L Normal 15-37 [facility] Comment on above: Performed By: #### P T, PTT #### [facility] [address] [place] [address] Dr. Nilton Mccall BILI, CONJUGATED 0.1 mg/dL Normal 0.0-0.2 [facility] Comment on above: Performed By: #### P T, PTT #### [facility] [address] [place] [address] Dr. Nilton Mccall Bilirubin [Mass/Vol] 0.3 mg/dL Normal 0.2-1.0 [facility] Comment on above: Performed By: #### P T, PTT #### [facility] [address] [place] [address] Dr. Nilton Mccall Globulin (S) [Mass/Vol] 3.5 g/dL Normal [facility] Comment on above: Performed By: #### P T, PTT #### [facility] [address] [place] [address] Dr. Nilton Mccall Protein [Mass/Vol] 7.5 g/dL Normal 6.4-8.2 [facility] Comment on above: Performed By: #### P T, PTT #### [facility] [address] [address] [address] Nilton Mccall PROF CHEM 8 (BAS METB)on Anion gap [Moles/Vol] 7.2 mmol/L Normal [facility] Comment on above: Performed By: #### P T, PTT #### [facility] [address] [place], [place] [address] Dr. Nilton Mccall Calcium [Mass/Vol] 9.1 mg/dL Normal 8.5-10.1 [facility] Comment on above: Performed By: #### P T, PTT #### [facility] [address] [place] [address] Dr. Nilton Mccall Chloride [Moles/Vol] 104 mmol/L Normal 98-107 [facility] Comment on above: Performed By: #### P T, PTT #### [facility] [address] [place] [address] Dr. Nilton Mccall CO2 [Moles/Vol] 29.7 mmol/L Normal 21.0-32.0 [facility] Comment on above: Performed By: #### P T, PTT #### [facility] [address] [place] [address] Dr. Nilton Mccall Creatinine [Mass/Vol] 0.97 mg/dL Normal 0.55-1.02 [facility] Comment on above: Performed By: #### P T, PTT #### [facility] [address] [place] [address] Dr. Nilton Mccall EGFR-AF SENEGALESE >60 Normal >=60 [facility] Comment on above: Performed By: #### P T, PTT #### [facility] [address] [place] [address] Dr. Nilton Mccall EGFR-NON AF SENEGALESE >60 Normal >=60 [facility] Comment on above: Performed By: #### P T, PTT #### [facility] [address] [place] [address] Dr. Nilton Mccall Glucose [Mass/Vol] 92 mg/dL Normal 74-106 [facility] Comment on above: Performed By: #### P T, PTT #### [facility] [address] [place] [address] Dr. Nilton Mccall Potassium [Moles/Vol] 3.9 mmol/L Normal 3.5-5.1 [facility] Comment on above: Performed By: #### P T, PTT #### [facility] [address] [place] [address] Dr. Nilton Mccall Sodium [Moles/Vol] 137 mmol/L Normal 136-145 [facility] Comment on above: Performed By: #### P T, PTT #### [facility] [address] [place] [address] Dr. Nilton Mccall Urea nitrogen [Mass/Vol] 14.0 mg/dL Normal 7.0-18.0 [facility] Comment on above: Performed By: #### P T, PTT #### [facility] [address] [place] [address] Dr. Nilton Mccall Urea nitrogen/Creatinine [Mass ratio] 14.4 mg/mg Normal [facility] Comment on above: Performed By: #### P T, PTT #### [facility] [address] [place] [address] Dr. Nilton Mccall TSHon 12-12-2021 TSH 0.340 uIU/mL Critically low 0.358-3.740 [facility] Comment on above: Performed By: #### P T, PTT #### [facility] [address] [place] [address] Dr. Nilton Mccall VITAMIN D 25 OHon 12-12-2021 VIT D 25-OH 44.3 ng/mL Normal [facility] Comment on above: Performed By: #### P T, PTT #### [facility] [address] [place] [address] Dr. Nilton Mccall VIT D RANGES SEE BELOW Normal [facility] Comment on above: Result Comment: <20 ng/mL Vit D deficient 20 - <30 ng/mL Vit D insufficient 30 - 100 ng/mL Vit D sufficient >100 ng/mL Potential Toxicity Performed By: #### P T, PTT #### [facility] [address] [address] [address] Nilton Joyner 12-02-2021 CNOV Office Visit (SYNCMN ) MARCLEANA ([id number]) 1985 F Date Time Provider Department 12/02/21 7:45 AM SYNCOPE OPD NURSE SYNCMN During your visit today, we recorded the following information about you: Ofelia Nelson 12/02/2021 9:32 AM Signed UNIVERSAL PROTOCOL / SAFETY CHECKLIST Procedure to be performed: [facility]: TILT Sign in Communication: Completed Time Out: Team Confirms the Correct Patient, Correct Procedure, Correct Site and Site Marking, Correct Position (if applicable). Time: 829 STAFF: Aby Affirmation of Time Out: YES Sign Out Discussion: Completed Ofelia Nelson Orders placed 10/20/[address]M Perez Allergies: Cefaclor, Iodinated Contrast Media, Fish Containing Products, Shellfish Derived, Aleve [Naproxen], Aspirin, Ceftin [Cefuroxime Axetil], Clindamycin, Erythromycin, Eucalyptus, Gatifloxacin, Lavender (Lavandula Angustifolia), Penicillin G Benzathine, Penicillins, Sulfa (Sulfonamide Antibiotics), Vioxx [Rofecoxib], Froylan 28 [Drospirenone-Ethinyl Estradiol], Latex, and Levofloxacin Test done in consult with Dr. Ian Oliver. Procedure Start Time: 829 Height 162.6 cm Weight 101.2 kg Patient fasting for 4 hours: Yes Support stockings taken off for procedure: Not applicable Pain Assessment: Patient states none Comfort Measures: Added pillow for head/shoulders Pacemaker: No IV Placement: 22 gauge angiocath in right median antecubital by LC Baseline: BP 120/76 HR 63 Pre-Max Tilt : 70 degrees 15 min BP 148/100 HR 72 Max Tilt: 70 degrees 16 min BP 147/100 HR 79 Note: Test was stopped early at the 15 min into 70 degree HUT due to patient symptoms, and patient request to stop test and resume supine positioning. See Final Report for Diagnosis. IV discontinued at 0928 by . Staff involved in procedure: Heavenly Thomas, CYNTHIA; Ofelia Allen RN Procedure Finish Time: 0934 Referring Provider: SELF [[id number]] Allergies As of Date: 12/02/2021 Noted Allergy Reaction CEFACLOR 09/04/2011 12 - Shortness of Breath 10 - Anaphylaxis 7 - Swelling Comments: Other reaction(s): Unknown IODINATED CONTRAST MEDIA 02/23/2014 10 - Anaphylaxis Comments: Tolerated with pre-medication on 09/22/21 Other reaction(s): Unknown Does not tolerate with pre-medication FISH CONTAINING PRODUCTS 07/25/2021 4 - Hives SHELLFISH DERIVED 07/25/2021 4 - Hives ALEVE (NAPROXEN) 09/06/2020 18 - Angioedema ASPIRIN 02/23/2014 18 - Angioedema CEFTIN (CEFUROXIME AXETIL) 02/23/2014 12 - Shortness of Breath CLINDAMYCIN 02/23/2014 2 - Rash 12 - Shortness of Breath ERYTHROMYCIN 02/23/2014 7 - Swelling 12 - Shortness of Breath 16 - Unknown EUCALYPTUS 10/23/2020 10 - Anaphylaxis GATIFLOXACIN 2014 6 - Diarrhea LAVENDER (LAVANDULA ANGUSTIFOLIA) 09/06/2020 10 - Anaphylaxis PENICILLIN G BENZATHINE 08/18/2021 16 - Unknown PENICILLINS 02/23/2014 2 - Rash 9 - Itching SULFA (SULFONAMIDE ANTIBIOTICS) 05/18/2015 7 - Swelling 12 - Shortness of Breath VIOXX (ROFECOXIB) 06/08/2021 16 - Unknown FROYLAN 28 (DROSPIRENONE-ETHINYL ESTR*06/08/2021 14 - Other: See Comments Comments: Skin discoloration of feet with OCPs LATEX 02/23/2014 2 - Rash 9 - Itching 16 - Unknown Comments: Skin cracks and bleeds LEVOFLOXACIN 11/11/2020 2 - Rash Date Reviewed: 11/18/2021 Reviewed by: Radha Roger - Fully Assessed Primary Visit Diagnosis:Palpitations [R00.2] Other Visit Diagnoses:Orthostatic intolerance [I95.1] Symptomatic bradycardia [R00.1] Order(s):SALINE LOCK DISCONTINUE [[id number]] Order #: [id number]: 1 INTERMITTENT PERIPHERAL DEVICE ([place], [place]) [[id number]] Order #: [id number]: 1 Prescriptions as of 12/02/2021 - arformoterol (BROVANA) 15 mcg/2 mL nebulizer solution Inhale 2 mL as instructed every 12 hours. - levalbuterol tartrate HFA 45 mcg/actuation inhaler Inhale 1-2 Puffs as instructed every 4 hours as needed for wheezing/shortness of breath. - budesonide (PULMICORT) 0.5 mg/2 mL nebulizer solution Use 2 mL via nebulizer every 12 hours. Inhale over 5-15 minutes - SITagliptin (JANUVIA) 100 mg tablet Take 1 tablet by mouth once daily. - Magnesium 250 mg tab Take 250 mg by mouth. - Flaxseed Oil oil Take 1,000 mg by mouth once daily. - Ascorbic Acid 100 mg tablet Take 100 mg by mouth once daily. - Zinc 50 mg tab Take by mouth. - fremanezumab-vfrm subcutaneus auto-injector 225 mg/1.5 mL (AJOVY) Inject 1.5 mL subcutaneously once every month. Do not shake. - UBRELVY 100 mg tablet TAKE 1 TABLET BY MOUTH AT ONSET OF MIGRAINE. MAY REPEAT IN 2 HOURS NEEDED. MAX 2 TABLET IN 24 HOURS - baclofen (LIORESAL) 10 mg tablet Take 10-20 mg by mouth at bedtime as needed. - famotidine (PEPCID) 40 mg tablet Take 40 mg by mouth as needed. - cetirizine (ZYRTEC) 10 mg tablet Take 10 mg by mouth as needed. - diphenhydrAMINE (BENADRYL) 25 mg tablet Take 50 mg (more content not included)... Normal [facility] Feroz 12-01-2021 RYANNE Telephone (CARDMN) LEANA TRAN ([id number]) 1985 F Date Time Provider Department 12/01/21 MICHEAL PEREZ During your visit today, we recorded the following information about you: Lindsey Hassan RN 12/01/2021 11:31 AM Signed ----- Message from Micheal Perez MD sent at 11/30/2021 8:33 PM EDT ----- Regarding: Event monitor results. Please call with results. Micheal Perez MD November 30, 2021 8:33 PM Lindsey Hassan RN 12/01/2021 5:06 PM Signed Attempted to contact the patient. Left voice message. Filomena Link Pss 12/02/2021 4:05 PM Signed Patient returned nurses call Lindsey Hassan RN 12/05/2021 3:23 PM Signed Contacted the patient and reviewed monitor results. Filomena MARIE Allergies As of Date: 12/01/2021 Noted Allergy Reaction CEFACLOR 09/04/2011 12 - Shortness of Breath 10 - Anaphylaxis 7 - Swelling Comments: Other reaction(s): Unknown IODINATED CONTRAST MEDIA 02/23/2014 10 - Anaphylaxis Comments: Tolerated with pre-medication on 09/22/21 Other reaction(s): Unknown Does not tolerate with pre-medication FISH CONTAINING PRODUCTS 07/25/2021 4 - Hives SHELLFISH DERIVED 07/25/2021 4 - Hives ALEVE (NAPROXEN) 09/06/2020 18 - Angioedema ASPIRIN 02/23/2014 18 - Angioedema CEFTIN (CEFUROXIME AXETIL) 02/23/2014 12 - Shortness of Breath CLINDAMYCIN 02/23/2014 2 - Rash 12 - Shortness of Breath ERYTHROMYCIN 02/23/2014 7 - Swelling 12 - Shortness of Breath 16 - Unknown EUCALYPTUS 10/23/2020 10 - Anaphylaxis GATIFLOXACIN 2014 6 - Diarrhea LAVENDER (LAVANDULA ANGUSTIFOLIA) 09/06/2020 10 - Anaphylaxis PENICILLIN G BENZATHINE 08/18/2021 16 - Unknown PENICILLINS 02/23/2014 2 - Rash 9 - Itching SULFA (SULFONAMIDE ANTIBIOTICS) 05/18/2015 7 - Swelling 12 - Shortness of Breath VIOXX (ROFECOXIB) 06/08/2021 16 - Unknown FROYLAN 28 (DROSPIRENONE-ETHINYL ESTR*06/08/2021 14 - Other: See Comments Comments: Skin discoloration of feet with OCPs LATEX 02/23/2014 2 - Rash 9 - Itching 16 - Unknown Comments: Skin cracks and bleeds LEVOFLOXACIN 11/11/2020 2 - Rash Date Reviewed: 11/18/2021 Reviewed by: Radha Roger - Fully Assessed Reason for Visit: Patient Update [1234] Prescriptions as of 12/05/2021 - arformoterol (BROVANA) 15 mcg/2 mL nebulizer solution Inhale 2 mL as instructed every 12 hours. - levalbuterol tartrate HFA 45 mcg/actuation inhaler Inhale 1-2 Puffs as instructed every 4 hours as needed for wheezing/shortness of breath. - budesonide (PULMICORT) 0.5 mg/2 mL nebulizer solution Use 2 mL via nebulizer every 12 hours. Inhale over 5-15 minutes - SITagliptin (JANUVIA) 100 mg tablet Take 1 tablet by mouth once daily. - Magnesium 250 mg tab Take 250 mg by mouth. - Flaxseed Oil oil Take 1,000 mg by mouth once daily. - Ascorbic Acid 100 mg tablet Take 100 mg by mouth once daily. - Zinc 50 mg tab Take by mouth. - fremanezumab-vfrm subcutaneus auto-injector 225 mg/1.5 mL (AJOVY) Inject 1.5 mL subcutaneously once every month. Do not shake. - UBRELVY 100 mg tablet TAKE 1 TABLET BY MOUTH AT ONSET OF MIGRAINE. MAY REPEAT IN 2 HOURS NEEDED. MAX 2 TABLET IN 24 HOURS - baclofen (LIORESAL) 10 mg tablet Take 10-20 mg by mouth at bedtime as needed. - famotidine (PEPCID) 40 mg tablet Take 40 mg by mouth as needed. - cetirizine (ZYRTEC) 10 mg tablet Take 10 mg by mouth as needed. - diphenhydrAMINE (BENADRYL) 25 mg tablet Take 50 mg by mouth every 6 hours as needed. - LORazepam (ATIVAN) 0.5 mg Take 0.5 mg by mouth twice daily as needed. - zonisamide (ZONEGRAN) 100 mg capsule Take 1 capsule by mouth once daily. - rimegepant (NURTEC ODT) 75 mg disintegrating tablet Take 1 tablet by mouth once daily as needed. No more than 1 dose in 24 hours. - prazosin (MINIPRESS) 5 mg cap Take 5 mg by mouth daily at bedtime. - mecobalamin, vitamin B12, 1,000 mcg ODT once daily. - VITAMIN D-3 125 mcg (5,000 unit) tab Take 5,000 Units by mouth once daily. - EPINEPHrine 0.1 mg/0.1 mL AutoInjector as needed. - lamoTRIgine (LAMICTAL) 150 mg tablet Take 150 mg by mouth daily at bedtime. - sertraline (ZOLOFT) 100 mg tablet Take 200 mg by mouth daily at bedtime. - levothyroxine (SYNTHROID) 112 mcg tablet Take 112 mcg by mouth daily before breakfast. Takes 1.5 tablets on Wednesdays - montelukast (SINGULAIR) 10 mg tablet Take 10 mg by mouth once daily. 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 Normal [facility] CNOVSPon 11-18-2021 CNOVSP Visit (SP) Office (Janet BUNN) LEANA TRAN ([id number]) 1985 F Date Time Provider Department 11/18/21 1:45 PM FUENTES AMARAL During your visit today, we recorded the following information about you: Temperature Pulse Respiration Blood pressure 97.8 degrees 66/minute 16/minute 121/73 Weight Height 101.2 kg 1.626 m Fuentes Amaral MD 11/19/2021 8:33 AM Signed HEMATOLOGY FOLLOW UP November 18, 2021 ([place]) Some elements in this clinic note that are critical to medical decision making have been carefully reviewed and included from a prior clinic note dated: November 10, 2021 (M[place]ir) AND November 03, 2021 (Munir) PCP and other physicians involved in patient's care: Cas Dowell (PCP), Rajinder Collins (surgery), Rubens Tim (ObGyn), DIAGNOSIS: Undiagnosed bleeding disorder, work-up pending - transition of care. ASSESSMENT: 35 year old with an unclear bleeding disorder and abnormal platelet aggregometry Patient's clinical history suggestive of an underlying bleeding disorder. She has had multiple surgical, obstetric, gynecologic, and dental procedures in the past. Some of these procedures have been associated with postoperative bleeding complications. Patient also has multiple bleeding issues such as easy gum bleeding on a regular basis. Her family history is unclear given that she was adopted but one of her sons has symptoms similar to her's (recurrent epistaxis and easy gum bleeding). Work-up for bleeding disorder in May 2021 showed an abnormal platelet aggregometry. There was mildly decreased aggregation to low dose ADP, collagen, and arachidonic acid but normal aggregation to high dose ADP and epinephrine (low and high dose). These findings were considered to be nonspecific. Patient does not take any aspirin or NSAIDs. 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 She has seen medical genetics and work-up is ongoing pending insurance authorization. Based on her previous surgical experiences, any surgical bleeding may be minimized by using FFP and platelet transfusions prior to the procedure. Follow up after genetics work-up is complete which she was encouraged to pursue. Additional constitutional symptoms will need additional workup. Reviewed Mammography showing axillary tail lymph nodes. They appeared benign and today's exam was normal. If she remains concerned, we can re-examine her and set up a breast MRI. PLAN: RTC and Repeat exam in 3 months - no labs Review platelet genetics on return. HEMATOLOGICAL HISTORY: Patient has an extensive and longstanding history of bleeding issues. In 2008, she was seen by Dr. Shirley and was noted to have an elevated PTT of 36 seconds. This corrected by addition of FFP. 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 She reportedly tested negative for von Willebrand disease. Some of these labs have been scanned in our EMR (2011). Previous bleeding history includes menorrhagia (endometrial ablation in 2014 for which she needed FFP and hysterectomy in 2019 [unclear whether she got FFP]), epistaxis since childhood (resolved after sinus surgery in 2010), gum bleeding on a daily basis with minimal trauma, and a recent episode of bright red blood per rectum in March 2021 (no EGD or colonoscopy). Previous dental procedures include cavity fillings. It is unclear whether she had any bleeding issues after that procedure. She has had 2 normal vaginal deliveries with hemorrhage but patient does not remember if any medical or surgical intervention was done. She had a during her third and reports that the surgery took longer than anticipated. Referred to me in May 2021 for pre-operative clearance prior to elective inguinal hernia repair May 2021, PT 10 seconds, PTT 32.7 seconds, activity levels of factors II, V, IX, X, XI; activity levels of factor VIII elevated; no evidence of von Willebrand's disease; platelet function screen normal; platelet aggregometry notable showed mildly decreased aggregation to low dose ADP, collagen, and arachidonic acid but normal aggregation to high dose ADP and epinephrine (low and high dose). There was a normal stimulated dense granule release to all agonists. The ristocetin induced platelet aggregation showed a normal dose response. Overall, these findings were non-specific. July 2021, above labs repeated with the same result; TEG normal; fibrinogen antigen normal INTERVAL HISTORY: Updated Visit, November 18, 2021: Leana is 35 and comes in after we discussed her mammogram results showing what appears to be benign lymph nodes. Chaperoned breast exam noted below. Discussion on lack of findings - tender bilateral axillary exam but no palpable masses. Discussion and education on continued hormonal cycles continuing despite hysterectomy causing breast ch (more content not included)... Normal [facility] CULTURE URINEon 11-18-2021 CULTURE URINE Culture Observations : HEAVY GROWTH OF MIXED GENITAL CHANCE. NO POTENTIAL PATHOGENS SEEN. Normal [facility] Comment on above: Performed By: #### P T, PTT #### [facility] [address] [place] [address] Dr. Nilton Redman 11-16-2021 CNPN Telephone (BANNER) LEANA TRAN ([id number]) 1985 F Date Time Provider Department 11/16/21 MEENA GRISSOM BANNER During your visit today, we recorded the following information about you: Zuleyka Pacheco RN 11/16/2021 1:04 PM Signed Zuleyka Pacheco RN 11/16/2021 1:04 PM Signed Allergies As of Date: 11/16/2021 Noted Allergy Reaction CEFACLOR 09/04/2011 12 - Shortness of Breath 10 - Anaphylaxis 7 - Swelling Comments: Other reaction(s): Unknown IODINATED CONTRAST MEDIA 02/23/2014 10 - Anaphylaxis Comments: Tolerated with pre-medication on 09/22/21 Other reaction(s): Unknown Does not tolerate with pre-medication FISH CONTAINING PRODUCTS 07/25/2021 4 - Hives SHELLFISH DERIVED 07/25/2021 4 - Hives ALEVE (NAPROXEN) 09/06/2020 18 - Angioedema ASPIRIN 02/23/2014 18 - Angioedema CEFTIN (CEFUROXIME AXETIL) 02/23/2014 12 - Shortness of Breath CLINDAMYCIN 02/23/2014 2 - Rash 12 - Shortness of Breath ERYTHROMYCIN 02/23/2014 7 - Swelling 12 - Shortness of Breath 16 - Unknown EUCALYPTUS 10/23/2020 10 - Anaphylaxis GATIFLOXACIN 2014 6 - Diarrhea LAVENDER (LAVANDULA ANGUSTIFOLIA) 09/06/2020 10 - Anaphylaxis PENICILLIN G BENZATHINE 08/18/2021 16 - Unknown PENICILLINS 02/23/2014 2 - Rash 9 - Itching SULFA (SULFONAMIDE ANTIBIOTICS) 05/18/2015 7 - Swelling 12 - Shortness of Breath VIOXX (ROFECOXIB) 06/08/2021 16 - Unknown FROYLAN 28 (DROSPIRENONE-ETHINYL ESTR*06/08/2021 14 - Other: See Comments Comments: Skin discoloration of feet with OCPs LATEX 02/23/2014 2 - Rash 9 - Itching 16 - Unknown Comments: Skin cracks and bleeds LEVOFLOXACIN 11/11/2020 2 - Rash Date Reviewed: 11/03/2021 Reviewed by: Sharon Peterson Ma - Fully Assessed 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 - predniSONE (DELTASONE) 50 mg Take 50 mg by mouth once daily. - levalbuterol tartrate HFA 45 mcg/actuation inhaler Inhale 1-2 Puffs as instructed every 4 hours as needed for wheezing/shortness of breath. - budesonide (PULMICORT) 0.5 mg/2 mL nebulizer solution Use 2 mL via nebulizer every 12 hours. Inhale over 5-15 minutes - SITagliptin (JANUVIA) 100 mg tablet Take 1 tablet by mouth once daily. - Magnesium 250 mg tab Take 250 mg by mouth. - Flaxseed Oil oil Take 1,000 mg by mouth once daily. - Ascorbic Acid 100 mg tablet Take 100 mg by mouth once daily. - Zinc 50 mg tab Take by mouth. - fremanezumab-vfrm subcutaneus auto-injector 225 mg/1.5 mL (AJOVY) Inject 1.5 mL subcutaneously once every month. Do not shake. - UBRELVY 100 mg tablet TAKE 1 TABLET BY MOUTH AT ONSET OF MIGRAINE. MAY REPEAT IN 2 HOURS NEEDED. MAX 2 TABLET IN 24 HOURS - baclofen (LIORESAL) 10 mg tablet Take 10-20 mg by mouth at bedtime as needed. - famotidine (PEPCID) 40 mg tablet Take 40 mg by mouth as needed. - cetirizine (ZYRTEC) 10 mg tablet Take 10 mg by mouth as needed. - diphenhydrAMINE (BENADRYL) 25 mg tablet Take 50 mg by mouth every 6 hours as needed. - LORazepam (ATIVAN) 0.5 mg Take 0.5 mg by mouth twice daily as needed. - zonisamide (ZONEGRAN) 100 mg capsule Take 1 capsule by mouth once daily. - rimegepant (NURTEC ODT) 75 mg disintegrating tablet Take 1 tablet by mouth once daily as needed. No more than 1 dose in 24 hours. - prazosin (MINIPRESS) 5 mg cap Take 5 mg by mouth daily at bedtime. - mecobalamin, vitamin B12, 1,000 mcg ODT once daily. - VITAMIN D-3 125 mcg (5,000 unit) tab Take 5,000 Units by mouth once daily. - EPINEPHrine 0.1 mg/0.1 mL AutoInjector as needed. - lamoTRIgine (LAMICTAL) 150 mg tablet Take 150 mg by mouth daily at bedtime. - sertraline (ZOLOFT) 100 mg tablet Take 200 mg by mouth daily at bedtime. - levothyroxine (SYNTHROID) 112 mcg tablet Take 112 mcg by mouth daily before breakfast. Takes 1.5 tablets on Wednesdays - montelukast (SINGULAIR) 10 mg tablet Take 10 mg by mouth once daily. 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 Normal [facility] CNPTerri 11-15-2021 CNPN Telephone (BANNER) LEANA TRAN ([id number]) 1985 F Date Time Provider Department 11/15/21 [facility] During your visit today, we recorded the following information about you: Fanny Green LPN 11/15/2021 3:57 PM Signed Allergies As of Date: 11/15/2021 Noted Allergy Reaction CEFACLOR 09/04/2011 12 - Shortness of Breath 10 - Anaphylaxis 7 - Swelling Comments: Other reaction(s): Unknown IODINATED CONTRAST MEDIA 02/23/2014 10 - Anaphylaxis Comments: Tolerated with pre-medication on 09/22/21 Other reaction(s): Unknown Does not tolerate with pre-medication FISH CONTAINING PRODUCTS 07/25/2021 4 - Hives SHELLFISH DERIVED 07/25/2021 4 - Hives ALEVE (NAPROXEN) 09/06/2020 18 - Angioedema ASPIRIN 02/23/2014 18 - Angioedema CEFTIN (CEFUROXIME AXETIL) 02/23/2014 12 - Shortness of Breath CLINDAMYCIN 02/23/2014 2 - Rash 12 - Shortness of Breath ERYTHROMYCIN 02/23/2014 7 - Swelling 12 - Shortness of Breath 16 - Unknown EUCALYPTUS 10/23/2020 10 - Anaphylaxis GATIFLOXACIN 2014 6 - Diarrhea LAVENDER (LAVANDULA ANGUSTIFOLIA) 09/06/2020 10 - Anaphylaxis PENICILLIN G BENZATHINE 08/18/2021 16 - Unknown PENICILLINS 02/23/2014 2 - Rash 9 - Itching SULFA (SULFONAMIDE ANTIBIOTICS) 05/18/2015 7 - Swelling 12 - Shortness of Breath VIOXX (ROFECOXIB) 06/08/2021 16 - Unknown FROYLAN 28 (DROSPIRENONE-ETHINYL ESTR*06/08/2021 14 - Other: See Comments Comments: Skin discoloration of feet with OCPs LATEX 02/23/2014 2 - Rash 9 - Itching 16 - Unknown Comments: Skin cracks and bleeds LEVOFLOXACIN 11/11/2020 2 - Rash Date Reviewed: 11/03/2021 Reviewed by: Sharon Peterson Ma - Fully Assessed Reason for Visit: Appointment [186] Cmt: Download Pap Therapy Follow UP Prescriptions as of 11/15/2021 - arformoterol (BROVANA) 15 mcg/2 mL nebulizer solution Inhale 2 mL as instructed every 12 hours. - predniSONE (DELTASONE) 50 mg Take 50 mg by mouth once daily. - levalbuterol tartrate HFA 45 mcg/actuation inhaler Inhale 1-2 Puffs as instructed every 4 hours as needed for wheezing/shortness of breath. - budesonide (PULMICORT) 0.5 mg/2 mL nebulizer solution Use 2 mL via nebulizer every 12 hours. Inhale over 5-15 minutes - SITagliptin (JANUVIA) 100 mg tablet Take 1 tablet by mouth once daily. - Magnesium 250 mg tab Take 250 mg by mouth. - Flaxseed Oil oil Take 1,000 mg by mouth once daily. - Ascorbic Acid 100 mg tablet Take 100 mg by mouth once daily. - Zinc 50 mg tab Take by mouth. - fremanezumab-vfrm subcutaneus auto-injector 225 mg/1.5 mL (AJOVY) Inject 1.5 mL subcutaneously once every month. Do not shake. - UBRELVY 100 mg tablet TAKE 1 TABLET BY MOUTH AT ONSET OF MIGRAINE. MAY REPEAT IN 2 HOURS NEEDED. MAX 2 TABLET IN 24 HOURS - baclofen (LIORESAL) 10 mg tablet Take 10-20 mg by mouth at bedtime as needed. - famotidine (PEPCID) 40 mg tablet Take 40 mg by mouth as needed. - cetirizine (ZYRTEC) 10 mg tablet Take 10 mg by mouth as needed. - diphenhydrAMINE (BENADRYL) 25 mg tablet Take 50 mg by mouth every 6 hours as needed. - LORazepam (ATIVAN) 0.5 mg Take 0.5 mg by mouth twice daily as needed. - zonisamide (ZONEGRAN) 100 mg capsule Take 1 capsule by mouth once daily. - rimegepant (NURTEC ODT) 75 mg disintegrating tablet Take 1 tablet by mouth once daily as needed. No more than 1 dose in 24 hours. - prazosin (MINIPRESS) 5 mg cap Take 5 mg by mouth daily at bedtime. - mecobalamin, vitamin B12, 1,000 mcg ODT once daily. - VITAMIN D-3 125 mcg (5,000 unit) tab Take 5,000 Units by mouth once daily. - EPINEPHrine 0.1 mg/0.1 mL AutoInjector as needed. - lamoTRIgine (LAMICTAL) 150 mg tablet Take 150 mg by mouth daily at bedtime. - sertraline (ZOLOFT) 100 mg tablet Take 200 mg by mouth daily at bedtime. - levothyroxine (SYNTHROID) 112 mcg tablet Take 112 mcg by mouth daily before breakfast. Takes 1.5 tablets on Wednesdays - montelukast (SINGULAIR) 10 mg tablet Take 10 mg by mouth once daily. 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 Normal [facility] CBC AUTO DIFFon 11-14-2021 BASO # 0.0 103/ul Normal 0.0-0.[address] [facility] Comment on above: Performed By: #### P T, PTT #### [facility] [address] [place] [address] Dr. Nilton Mccall Basophils/100 WBC (Bld) 0.6 % Normal 0.2-2.0 [facility] Comment on above: Performed By: #### P T, PTT #### [facility] [address] [place] [address] Dr. Nilton Mccall EO # 0.2 103/ul Normal 0.0-0.[address] [facility] Comment on above: Performed By: #### P T, PTT #### [facility] [address] [place] [address] Dr. Nilton Mccall Eosinophils/100 WBC (Bld) 2.6 % Normal 0.9-7.0 [facility] Comment on above: Performed By: #### P T, PTT #### [facility] [address] [place] [address] Dr. Nilton Mccall Erythrocyte distribution wid th (RBC) [Ratio] 11.9 % Normal 11.0-15.0 [facility] Comment on above: Performed By: #### P T, PTT #### [facility] [address] [place] [address] Dr. Nilton Mccall Hematocrit (Bld) [Volume fraction] 39.7 % Normal 3 6.0-48.0 [facility] Comment on above: Performed By: #### P T, PTT #### [facility] [address] [place] [address] Dr. Nilton Mccall Hemoglobin (Bld) [Mass/Vol] 13.8 g/dL Normal 12.0-16. 0 [facility] Comment on above: Performed By: #### P T, PTT #### [facility] [address] [place] [address] Dr. Nilton Mccall IG # 0.03 10e3/ul Normal 0.00-0.03 [facility] Comment on above: Performed By: #### P T, PTT #### [facility] [address] [address] [address] Nilton Mccall IG % 0.5 % Normal 0.0-0.5 [facility] Comment on above: Performed By: #### P T, PTT #### [facility] [address] [address] [address] Nilton Mccall LYMPH # 1.7 103/ul Normal 1.2-3.8 [facility] Comment on above: Performed By: #### P T, PTT #### [facility] [address] [place] [address] Dr. Nilton Mccall Lymphocytes/100 WBC (Bld) 26.0 % Normal 20.5-60.0 [facility] Comment on above: Performed By: #### P T, PTT #### [facility] [address] [place] [address] Dr. Nilton Mccall MANUAL DIFF REQ NO Normal [facility] Comment on above: Performed By: #### P T, PTT #### [facility] [address] [place] [address] Dr. Nilton Mccall MCH (RBC) [Entitic mass] 29.6 pg Normal 26.7-34.0 [facility] Comment on above: Performed By: #### P T, PTT #### [facility] [address] [place] [address] Dr. Nilton Mccall MCHC (RBC) [Mass/Vol] 34.8 g/dL Normal 29.9-35.2 [facility] Comment on above: Performed By: #### P T, PTT #### [facility] [address] [place] [address] Dr. Nilton Mccall MCV (RBC) [Entitic vol] 85.0 fL Normal 81.0-99.0 [facility] Comment on above: Performed By: #### P T, PTT #### [facility] [address] [place] [address] Dr. Nilton Mccall MONO # 0.3 103/ul Normal 0.3-0.[address] [facility] Comment on above: Performed By: #### P T, PTT #### [facility] [address] [place] [address] Dr. Nilton Mccall Monocytes/100 WBC (Bld) 5.1 % Normal 1.7-12.0 [facility] Comment on above: Performed By: #### P T, PTT #### [facility] [address] [place] [address] Dr. Nilton Mccall NEUT # 4.2 103/ul Normal 1.4-6.5 [facility] Comment on above: Performed By: #### P T, PTT #### [facility] [address] [place] [address] Dr. Nilton Mccall Neutrophils/100 WBC (Bld) 65.2 % Normal 43.0-75.0 [facility] Comment on above: Performed By: #### P T, PTT #### [facility] [address] [place] [address] Dr. Nilton Mccall Platelet mean volume (Bld) [Entitic vol] 9.4 fL Critically low 9.5-13.5 [facility] Comment on above: Performed By: #### P T, PTT #### [facility] [address] [place] [address] Dr. Nilton Mccall PLT 232 103/ul Normal 150-450 [facility] Comment on above: Performed By: #### P T, PTT #### [facility] [address] [place] [address] Dr. Nilton Mccall RBC 4.67 106/ul Normal 4.20-5.40 [facility] Comment on above: Performed By: #### P T, PTT #### [facility] [address] [place] [address] Dr. Nilton Mccall WBC 6.4 103/ul Normal 4.0-11.0 [facility] Comment on above: Performed By: #### P T, PTT #### [facility] [address] [place] [address] ABD/PELVIS WO CONon 11-14 CT ABD/PELVIS WO CON EXAMINATION: CT ABD /PELVIS WO CON, 11/14/2021 1:06 PM EDT HISTORY: UNSPECIFIED ABDOMINAL PAIN COMPARISON: 02/24/2020 TECHNIQUE: CT scan of the abdomen and pelvis was performed without IV contrast. CT dose reduction technique was used, including Automated Exposure Control. FINDINGS: LUNG BASES: No visible pulmonary or pleural disease. LIVER: Diffuse hypoattenuation consistent with hepatic steatosis BILIARY: Surgical clips from cholecystectomy PANCREAS: No lesion, fluid collection, ductal dilatation, or atrophy. SPLEEN: No enlargement or focal lesion. ADRENALS: No mass or enlargement. KIDNEYS: No mass, obstruction, or calcification. BOWEL/MESENTERY: Suture line in the cecum likely from prior appendectomy. Nonobstructive bowel gas pattern. AORTA/VASCULAR: No aneurysm or dissection. RETROPERITONEUM: No mass or adenopathy. LYMPH NODES: No adenopathy. URINARY BLADDER: No visible focal wall thickening, lesion, or calculus. PELVIC ORGANS: Hysterectomy ABDOMINAL WALL: No mass or hernia. BONES: No bony lesion or fracture. OTHER: Negative. IMPRESSION: No acute abnormality No obstructive uropathy Electronically authenticated by: BELÉN ANDRADE Date: 2021-11-14 14:24 Normal [facility] ER URINE PROFILEon 2 Bilirubin Ql (U) Negative Normal NEGATIVE [facility] Comment on above: Performed By: #### C BC #### [facility] [address] [place] [address] Dr. Nilton Mccall Clarity (U) CLEAR Normal CLEAR [facility] Comment on above: Performed By: #### C BC #### [facility] [address] [place] [address] Dr. Nilton Mccall Color (U) LT. YELLOW Normal YELLOW [facility] Comment on above: Performed By: #### C BC #### [facility] [address] [place] [address] Dr. Nilton Mccall ERUAHD A micrscopic examina tion will be performed if indicated. Normal [facility] Comment on above: Performed By: #### C BC #### [facility] [address] [place] [address] Dr. Nilton Mccall Glucose Ql (U) Negative Normal NEGATIVE [facility] Comment on above: Performed By: #### C BC #### [facility] [address] [place] [address] Dr. Nilton Mccall Hemoglobin Ql (U) Negative Normal NEGATIVE [facility] Comment on above: Performed By: #### C BC #### [facility] [address] [place] [address] Dr. Nilton Mccall Ketones Ql (U) Negative Normal NEGATIVE [facility] Comment on above: Performed By: #### C BC #### [facility] [address] [place] [address] Dr. Nilton Mccall LEUKOCYTES Negative Normal NEGATIVE [facility] Comment on above: Performed By: #### C BC #### [facility] [address] [place] [address] Dr. Nilton Mccall Nitrite Ql (U) Negative Normal NEGATIVE [facility] Comment on above: Performed By: #### C BC #### [facility] [address] [place] [address] Dr. Nilton Mccall pH (U) 6.0 [pH] Normal 5-[address] [facility] Comment on above: Performed By: #### C BC #### [facility] [address] [place] [address] Dr. Nilton Mccall SPEC GRAVITY 1.025 Normal 1.005-<=1.025 [facility] Comment on above: Performed By: #### C BC #### [facility] [address] [place] [address] Dr. Nilton Mccall UA PROTEIN Negative Normal NEGATIVE/ TRACE [facility] Comment on above: Performed By: #### C BC #### [facility] [address] [place] [address] Dr. Nilton Mccall UR MICRO IND NOT INDICATED Normal [facility] Comment on above: Performed By: #### C BC #### [facility] [address] [place] [address] Dr. Nilton Mccall Urobilinogen Qn (U) 0.2 {Zarina'U}/dL Normal 0.2 - 1. 0 [facility] Comment on above: Performed By: #### C BC #### [facility] [address] [address] [address] Nilton Mccall MONOon 11-14-2021 Monocytes (Bld) [#/Vol] Negative Normal NEGATIVE T [facility] Comment on above: Performed By: #### P T, PTT #### [facility] [address] [address] [address] Nilton Mccall PROF 14(COMP METB)on 022 Albumin [Mass/Vol] 3.8 g/dL Normal 3.4-5.0 [facility] Comment on above: Performed By: #### C MP #### [facility] [address] [place] [address] Dr. Nilton Mccall Albumin/Globulin [Mass ratio] 1.2 {ratio} Normal [facility] Comment on above: Performed By: #### C MP #### [facility] [address] [place] [address] Dr. Nilton Mccall ALP [Catalytic activity/Vol] 65 U/L Normal 46-116 [facility] Comment on above: Performed By: #### C MP #### [facility] [address] [place] [address] Dr. Nilton Mccall ALT [Catalytic activity/Vol] 29 U/L Normal 14-59 [facility] Comment on above: Performed By: #### C MP #### [facility] [address] [place] [address] Dr. Nilton Mccall Anion gap [Moles/Vol] 8.6 mmol/L Normal [facility] Comment on above: Performed By: #### C MP #### [facility] [address] [place] [address] Dr. Nilton Mccall AST [Catalytic activity/Vol] 13 U/L Critically low 15- 37 [facility] Comment on above: Performed By: #### C MP #### [facility] [address] [place] [address] Dr. Nilton Mccall Bilirubin [Mass/Vol] 0.4 mg/dL Normal 0.2-1.0 [facility] Comment on above: Performed By: #### C MP #### [facility] [address] [address] [address] Nilton Mccall Calcium [Mass/Vol] 8.9 mg/dL Normal 8.5-10.1 [facility] Comment on above: Performed By: #### C MP #### [facility] [address] [address] [address] Nilton Mccall Chloride [Moles/Vol] 106 mmol/L Normal 98-107 [facility] Comment on above: Performed By: #### C MP #### [facility] [address] [address] [address] Nilton Mccall CO2 [Moles/Vol] 26.2 mmol/L Normal 21.0-32.0 [facility] Comment on above: Performed By: #### C MP #### [facility] [address] [address] [address] Nilton Mccall Creatinine [Mass/Vol] 1.12 mg/dL Critically high 0.55-1.02 [facility] Comment on above: Performed By: #### C MP #### [facility] [address] [address] [address] Nilton Mccall EGFR-AF SENEGALESE >60 Normal >=60 [facility] Comment on above: Performed By: #### C MP #### [facility] [address] [address] [address] Nilton Mccall EGFR-NON AF SENEGALESE 55 mL/min/1.73m2 Critically low >=60 [facility] Comment on above: Performed By: #### C MP #### [facility] [address] [address] [address] Nilton Mccall Globulin (S) [Mass/Vol] 3.3 g/dL Normal T [facility] Comment on above: Performed By: #### C MP #### [facility] [address] [address] [address] Nilton Mccall Glucose [Mass/Vol] 88 mg/dL Normal 74-106 [facility] Comment on above: Performed By: #### C MP #### [facility] [address] [address] [address] Nilton Mccall Potassium [Moles/Vol] 3.8 mmol/L Normal 3.5-5.1 [facility] Comment on above: Performed By: #### C MP #### [facility] [address] [address] [address] Nilton Mccall Protein [Mass/Vol] 7.1 g/dL Normal 6.4-8.2 [facility] Comment on above: Performed By: #### C MP #### [facility] [address] [address] [address] Nilton Mccall Sodium [Moles/Vol] 137 mmol/L Normal 136-145 [facility] Comment on above: Performed By: #### C MP #### [facility] [address] [address] [address] Nilton Mccall Urea nitrogen [Mass/Vol] 14.0 mg/dL Normal 7.0-18.0 [facility] Comment on above: Performed By: #### C MP #### [facility] [address] [address] [address] Nilton Mccall Urea nitrogen/Creatinine [Mass ratio] 12.5 mg/mg Normal [facility] Comment on above: Performed By: #### C MP #### [facility] [address] [address] [address] Nilton Mccall CNOVSPon 11-03-2021 CNOVS Visit (SP) Office ([facility]) LEANA TRAN ([id number]) 1985 F Date Time Provider Department 11/03/21 11:00 AM FUENTES AMARAL During your visit today, we recorded the following information about you: Temperature Pulse Respiration Blood pressure 97.6 degrees 59/minute 16/minute 120/63 Weight Height 100 kg 1.626 m Fuentes Aamral MD 11/06/2021 5:22 PM Signed HEMATOLOGY FOLLOW UP November 03, 2021 ([place]) Some elements in this clinic note that are critical to medical decision making have been carefully reviewed and included from a prior clinic note dated: July 22, 2021 ([place]ali) AND July 01, 2021 (Kali) PCP and other physicians involved in patient's care: Cas Dowell (PCP), Rajinder Collins (surgery), Rubens Tim (ObGyn), DIAGNOSIS: Undiagnosed bleeding disorder, work-up pending - transition of care. ASSESSMENT: 35 female with an unclear bleeding disorder and abnormal platelet aggregometry Patient's clinical history suggestive of an underlying bleeding disorder. She has had multiple surgical, obstetric, gynecologic, and dental procedures in the past. Some of these procedures have been associated with postoperative bleeding complications. Patient also has multiple bleeding issues such as easy gum bleeding on a regular basis. Her family history is unclear given that she was adopted but one of her sons has symptoms similar to her's (recurrent epistaxis and easy gum bleeding). Work-up for bleeding disorder in May 2021 showed an abnormal platelet aggregometry. There was mildly decreased aggregation to low dose ADP, collagen, and arachidonic acid but normal aggregation to high dose ADP and epinephrine (low and high dose). These findings were considered to be nonspecific. Patient does not take any aspirin or NSAIDs. 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 She has seen medical genetics and work-up is ongoing pending insurance authorization. Based on her previous surgical experiences, any surgical bleeding may be minimized by using FFP and platelet transfusions prior to the procedure. Follow up after genetics work-up is complete which she was encouraged to pursue. Additional constitutional symptoms will need additional workup. Will need Mammography results to review and determine additional workup. PLAN: 1. Need Mammogram results from [place] 2. Proceed with genetic testing for platelet disorder 3. Call next week to review mammogram results HEMATOLOGICAL HISTORY: Patient has an extensive and longstanding history of bleeding issues. In 2008, she was seen by Dr. Shirley and was noted to have an elevated PTT of 36 seconds. This corrected by addition of FFP. 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 She reportedly tested negative for von Willebrand disease. Some of these labs have been scanned in our EMR (2011). Previous bleeding history includes menorrhagia (endometrial ablation in 2014 for which she needed FFP and hysterectomy in 2019 [unclear whether she got FFP]), epistaxis since childhood (resolved after sinus surgery in 2010), gum bleeding on a daily basis with minimal trauma, and a recent episode of bright red blood per rectum in March 2021 (no EGD or colonoscopy). Previous dental procedures include cavity fillings. It is unclear whether she had any bleeding issues after that procedure. She has had 2 normal vaginal deliveries with hemorrhage but patient does not remember if any medical or surgical intervention was done. She had a during her third and reports that the surgery took longer than anticipated. Referred to me in May 2021 for pre-operative clearance prior to elective inguinal hernia repair May 2021, PT 10 seconds, PTT 32.7 seconds, activity levels of factors II, V, IX, X, XI; activity levels of factor VIII elevated; no evidence of von Willebrand's disease; platelet function screen normal; platelet aggregometry notable showed mildly decreased aggregation to low dose ADP, collagen, and arachidonic acid but normal aggregation to high dose ADP and epinephrine (low and high dose). There was a normal stimulated dense granule release to all agonists. The ristocetin induced platelet aggregation showed a normal dose response. Overall, these findings were non-specific. July 2021, above labs repeated with the same result; TEG normal; fibrinogen antigen normal INTERVAL HISTORY: Updated Visit, November 03, 2021: Transition of care Drenching night sweats - had COVID 10/2020 - sweats started in August, developed T2DM after COVID. Random rashes - red and blotchy circles. Swollen lymph node - not palpable On frequent prednisone tapers every month Mammograms last week 10/19/2021 - LN's noted on them. Will evaluate this further. ROS is negative except that mentioned in HPI [facility] (more content not included)... Normal [facility] Feroz 11-01-2021 RYANNE Telephone ([employer]) MARCLEANA ([id number]) 1985 F Date Time Provider Department 11/01/21 JUAN RAMON BRIONES During your visit today, we recorded the following information about you: CARINE Sparks 11/01/2021 10:48 AM Signed Patient name and was confirmed at initiation of discussion. I spoke on the phone with the patient today. We discussed that we were not able to obtain insurance authorization to order her genetic testing including a bleeding disorders panel through [employer]. We reviewed self-pay options for this testing, and the patient is interested in pursuing testing on a self-pay basis. The listed self-pay fuller on [employer] website is $1060. 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 Fuentes Amaral during their meeting scheduled for this 11/03/21 before making her final decision. The patient agreed to send me a [employer] message with her decision following her appointment with Dr. Amaral. For additional context please see my clinic note from 08/03/21. Juan Ramon Briones MS, [facility] Licensed, Certified Genetic Counselor Epic CC: Dr. Fuentes Amaral Allergies As of Date: 11/01/2021 Noted Allergy Reaction CEFACLOR 09/04/2011 12 - Shortness of Breath 10 - Anaphylaxis 7 - Swelling Comments: Other reaction(s): Unknown IODINATED CONTRAST MEDIA 02/23/2014 10 - Anaphylaxis Comments: Tolerated with pre-medication on 09/22/21 Other reaction(s): Unknown Does not tolerate with pre-medication FISH CONTAINING PRODUCTS 07/25/2021 4 - Hives SHELLFISH DERIVED 07/25/2021 4 - Hives ALEVE (NAPROXEN) 09/06/2020 18 - Angioedema ASPIRIN 02/23/2014 18 - Angioedema CEFTIN (CEFUROXIME AXETIL) 02/23/2014 12 - Shortness of Breath CLINDAMYCIN 02/23/2014 2 - Rash 12 - Shortness of Breath ERYTHROMYCIN 02/23/2014 7 - Swelling 12 - Shortness of Breath 16 - Unknown EUCALYPTUS 10/23/2020 10 - Anaphylaxis GATIFLOXACIN 2014 6 - Diarrhea LAVENDER (LAVANDULA ANGUSTIFOLIA) 09/06/2020 10 - Anaphylaxis PENICILLIN G BENZATHINE 08/18/2021 16 - Unknown PENICILLINS 02/23/2014 2 - Rash 9 - Itching SULFA (SULFONAMIDE ANTIBIOTICS) 05/18/2015 7 - Swelling 12 - Shortness of Breath VIOXX (ROFECOXIB) 06/08/2021 16 - Unknown FROYLAN 28 (DROSPIRENONE-ETHINYL ESTR*06/08/2021 14 - Other: See Comments Comments: Skin discoloration of feet with OCPs LATEX 02/23/2014 2 - Rash 9 - Itching 16 - Unknown Comments: Skin cracks and bleeds LEVOFLOXACIN 11/11/2020 2 - Rash Date Reviewed: 10/31/2021 Reviewed by: Landen Clark APRN.FACILITY MANAGER - Fully Assessed Reason for Visit: Insurance Authorization [[id number]] Prescriptions as of 11/01/2021 - levalbuterol tartrate HFA 45 mcg/actuation inhaler Inhale 1-2 Puffs as instructed every 4 hours as needed for wheezing/shortness of breath. - budesonide (PULMICORT) 0.5 mg/2 mL nebulizer solution Use 2 mL via nebulizer every 12 hours. Inhale over 5-15 minutes - formoterol fumarate (PERFOROMIST) 20 mcg/2 mL nebu Inhale 2 mL as instructed every 12 hours. - SITagliptin (JANUVIA) 100 mg tablet Take 1 tablet by mouth once daily. - Magnesium 250 mg tab Take 250 mg by mouth. - Flaxseed Oil oil Take 1,000 mg by mouth once daily. - Ascorbic Acid 100 mg tablet Take 100 mg by mouth once daily. - Zinc 50 mg tab Take by mouth. - fremanezumab-vfrm subcutaneus auto-injector 225 mg/1.5 mL (AJOVY) Inject 1.5 mL subcutaneously once every month. Do not shake. - UBRELVY 100 mg tablet TAKE 1 TABLET BY MOUTH AT ONSET OF MIGRAINE. MAY REPEAT IN 2 HOURS NEEDED. MAX 2 TABLET IN 24 HOURS - baclofen (LIORESAL) 10 mg tablet Take 10-20 mg by mouth at bedtime as needed. - famotidine (PEPCID) 40 mg tablet Take 40 mg by mouth as needed. - cetirizine (ZYRTEC) 10 mg tablet Take 10 mg by mouth as needed. - diphenhydrAMINE (BENADRYL) 25 mg tablet Take 50 mg by mouth every 6 hours as needed. - LORazepam (ATIVAN) 0.5 mg Take 0.5 mg by mouth twice daily as needed. - zonisamide (ZONEGRAN) 100 mg capsule Take 1 capsule by mouth once daily. - rimegepant (NURTEC ODT) 75 mg disintegrating tablet Take 1 tablet by mouth once daily as needed. No more than 1 dose in 24 hours. - prazosin (MINIPRESS) 5 mg cap Take 5 mg by mouth daily at bedtime. - mecobalamin, vitamin B12, 1,000 mcg ODT once daily. - VITAMIN D-3 125 mcg (5,000 unit) tab Take 5,000 Units by mouth once daily. - EPINEPHrine 0.1 mg/0.1 mL AutoInjector as needed. - lamoTRIgine (LAMICTAL) 150 mg tablet Take 150 mg by mouth daily at bedtime. - sertraline (ZOLOFT) 100 mg tablet Take 200 mg by mouth daily at bedtime. - levothyroxine (SYNTHROID) 112 mcg tablet Take 112 mcg by mouth daily before breakfast. Takes 1.5 tablets on Wednesdays - montelukast (SINGULAIR) 10 mg tablet Take 10 mg by mouth once daily. Facility-Administered Medications as o (more content not included)... Normal [facility] 10-28-2021 BANNER Telephone (ZACHARIAHX) LEANA TRAN ([id number]) 1985 F Date Time Provider Department 10/28/21 FARIBA GUTRHIE During your visit today, we recorded the following information about you: Fariba Guthrie RPh 10/28/2021 2:24 PM Signed Benefits investigation was conducted, indicating that a prior authorization is required for Ajovy auto-injector 225 mg/1.5 mL . PA was initiated and pending review through [email or web address]. All pertinent clinical information was submitted to insurance. CMM Appiah: [id number] Ordering Provider: GIOVANNA Chi, Pharmacist [facility] P: , F: Jenni Rocha RN 11/01/2021 9:18 AM Signed Ambulatory Pharmacy Prior Authorization Note Provider Intervention Required?: No- Pharmacy completed on your behalf. Drug: AJOVY (fremanezumab-vfrm) injection 225MG/1.5ML auto-injectors Cover My Meds Appiah: [id number] Determination: Denied PA Denied because: Medical necessity not met Prior Authorization/Case #: [id number] Prior Authorization Expiration: n/A Time to PA Submission in CMM: 15 min Time to PA Determination in CMM: 3 days Additional Information: Full letter scanned into chart for reference, please review letter for full details. Next Steps- Please notify the patient of Denial. Your office can submit appeal if you would like to pursue. If overturned, please feel free to send new eRx to [facility] at that time. No further action by [facility] for now and existing order to be profiled. Jenni Rocha RN [facility] P: , F: For questions relating to this submission, please contact [facility] [phone] Bhargavi Saldana PA-C 11/01/2021 9:27 AM Signed Appeal letter written. Please fax to insurance. Bhargavi Saldana PA-C November 01, 2021 9:27 AM Nicki Bravo Adm 11/18/2021 4:17 PM Signed Appeal sent Allergies As of Date: 10/28/2021 Noted Allergy Reaction IODINATED CONTRAST MEDIA 02/23/2014 10 - Anaphylaxis Comments: Tolerated with pre-medication on 09/22/21 FISH CONTAINING PRODUCTS 07/25/2021 4 - Hives SHELLFISH DERIVED 07/25/2021 4 - Hives ALEVE (NAPROXEN) 09/06/2020 18 - Angioedema ASPIRIN 02/23/2014 18 - Angioedema CECLOR (CEFACLOR) 09/06/2020 12 - Shortness of Breath CEFTIN (CEFUROXIME AXETIL) 02/23/2014 12 - Shortness of Breath CLINDAMYCIN 02/23/2014 2 - Rash 12 - Shortness of Breath ERYTHROMYCIN 02/23/2014 7 - Swelling 12 - Shortness of Breath EUCALYPTUS 10/23/2020 10 - Anaphylaxis GATIFLOXACIN 2014 6 - Diarrhea LAVENDER (LAVANDULA ANGUSTIFOLIA) 09/06/2020 10 - Anaphylaxis PENICILLINS 02/23/2014 2 - Rash 9 - Itching SULFA (SULFONAMIDE ANTIBIOTICS) 05/18/2015 7 - Swelling 12 - Shortness of Breath VIOXX (ROFECOXIB) 06/08/2021 16 - Unknown FROYLAN 28 (DROSPIRENONE-ETHINYL ESTR*06/08/2021 14 - Other: See Comments Comments: Skin discoloration of feet with OCPs LATEX 02/23/2014 2 - Rash 9 - Itching Comments: Skin cracks and bleeds LEVOFLOXACIN 11/11/2020 2 - Rash Date Reviewed: 10/24/2021 Reviewed by: Cindy Rusihng MD - Fully Assessed Reason for Visit: Insurance Authorization [[id number]] Cmt: Kurt Prescriptions as of 11/28/2021 - arformoterol (BROVANA) 15 mcg/2 mL nebulizer solution Inhale 2 mL as instructed every 12 hours. - levalbuterol tartrate HFA 45 mcg/actuation inhaler Inhale 1-2 Puffs as instructed every 4 hours as needed for wheezing/shortness of breath. - budesonide (PULMICORT) 0.5 mg/2 mL nebulizer solution Use 2 mL via nebulizer every 12 hours. Inhale over 5-15 minutes - SITagliptin (JANUVIA) 100 mg tablet Take 1 tablet by mouth once daily. - Magnesium 250 mg tab Take 250 mg by mouth. - Flaxseed Oil oil Take 1,000 mg by mouth once daily. - Ascorbic Acid 100 mg tablet Take 100 mg by mouth once daily. - Zinc 50 mg tab Take by mouth. - fremanezumab-vfrm subcutaneus auto-injector 225 mg/1.5 mL (AJOVY) Inject 1.5 mL subcutaneously once every month. Do not shake. - UBRELVY 100 mg tablet TAKE 1 TABLET BY MOUTH AT ONSET OF MIGRAINE. MAY REPEAT IN 2 HOURS NEEDED. MAX 2 TABLET IN 24 HOURS - baclofen (LIORESAL) 10 mg tablet Take 10-20 mg by mouth at bedtime as needed. - famotidine (PEPCID) 40 mg tablet Take 40 mg by mouth as needed. - cetirizine (ZYRTEC) 10 mg tablet Take 10 mg by mouth as needed. - diphenhydrAMINE (BENADRYL) 25 mg tablet Take 50 mg by mouth every 6 hours as needed. - LORazepam (ATIVAN) 0.5 mg Take 0.5 mg by mouth twice daily as needed. - zonisamide (ZONEGRAN) 100 mg capsule Take 1 capsule by mouth once daily. - rimegepant (NURTEC ODT) 75 mg disintegrating tablet Take 1 tablet by mouth once daily as needed. No more than 1 dose in 24 hours. - prazosin (MINIPRESS) 5 mg cap Take 5 mg by (more content not included)... Normal [facility] 10-27-2021 CNPN Telephone (HEMASA) LEANA TRAN ([id number]) 1985 F Date Time Provider Department 10/27/21 FUENTES AMARAL During your visit today, we recorded the following information about you: Sharon Peterson Ma 10/27/2021 3:22 PM Signed If needed, please add lab orders for appointment on 11/03/21. Sharon Amaral MD 10/30/2021 9:09 AM Signed I don't think I need labs for her. Allergies As of Date: 10/27/2021 Noted Allergy Reaction IODINATED CONTRAST MEDIA 02/23/2014 10 - Anaphylaxis Comments: Tolerated with pre-medication on 09/22/21 FISH CONTAINING PRODUCTS 07/25/2021 4 - Hives SHELLFISH DERIVED 07/25/2021 4 - Hives ALEVE (NAPROXEN) 09/06/2020 18 - Angioedema ASPIRIN 02/23/2014 18 - Angioedema CECLOR (CEFACLOR) 09/06/2020 12 - Shortness of Breath CEFTIN (CEFUROXIME AXETIL) 02/23/2014 12 - Shortness of Breath CLINDAMYCIN 02/23/2014 2 - Rash 12 - Shortness of Breath ERYTHROMYCIN 02/23/2014 7 - Swelling 12 - Shortness of Breath EUCALYPTUS 10/23/2020 10 - Anaphylaxis GATIFLOXACIN 2014 6 - Diarrhea LAVENDER (LAVANDULA ANGUSTIFOLIA) 09/06/2020 10 - Anaphylaxis PENICILLINS 02/23/2014 2 - Rash 9 - Itching SULFA (SULFONAMIDE ANTIBIOTICS) 05/18/2015 7 - Swelling 12 - Shortness of Breath VIOXX (ROFECOXIB) 06/08/2021 16 - Unknown FROYLAN 28 (DROSPIRENONE-ETHINYL ESTR*06/08/2021 14 - Other: See Comments Comments: Skin discoloration of feet with OCPs LATEX 02/23/2014 2 - Rash 9 - Itching Comments: Skin cracks and bleeds LEVOFLOXACIN 11/11/2020 2 - Rash Date Reviewed: 10/24/2021 Reviewed by: Cindy Rushing MD - Fully Assessed Reason for Visit: Lab Orders [[id number]] Prescriptions as of 03/10/2022 - DULoxetine (CYMBALTA) 30 mg capsule TAKE 1 CAPSULE BY MOUTH EVERY DAY DO NOT CRUSH OR CHEW - Fluticasone Furoate (FLONASE SENSIMIST) 27.5 mcg/actuation nasal spray 1 spray in each nostril - arformoterol (BROVANA) 15 mcg/2 mL nebulizer solution Inhale 2 mL as instructed every 12 hours. - levalbuterol tartrate HFA 45 mcg/actuation inhaler Inhale 1-2 Puffs as instructed every 4 hours as needed for wheezing/shortness of breath. - budesonide (PULMICORT) 0.5 mg/2 mL nebulizer solution Use 2 mL via nebulizer every 12 hours. Inhale over 5-15 minutes - SITagliptin (JANUVIA) 100 mg tablet Take 1 tablet by mouth once daily. - Magnesium 250 mg tab Take 250 mg by mouth. - ASCORBIC ACID, VITAMIN C, ORAL Take 100 mg by mouth once daily. With zinc - Zinc 50 mg tab Take by mouth. - fremanezumab-vfrm subcutaneus auto-injector 225 mg/1.5 mL (AJOVY) Inject 1.5 mL subcutaneously once every month. Do not shake. - UBRELVY 100 mg tablet TAKE 1 TABLET BY MOUTH AT ONSET OF MIGRAINE. MAY REPEAT IN 2 HOURS NEEDED. MAX 2 TABLET IN 24 HOURS - baclofen (LIORESAL) 10 mg tablet Take 10-20 mg by mouth at bedtime as needed. - cetirizine (ZYRTEC) 10 mg tablet Take 10 mg by mouth as needed. - diphenhydrAMINE (BENADRYL) 25 mg tablet Take 50 mg by mouth every 6 hours as needed. - zonisamide (ZONEGRAN) 100 mg capsule Take 1 capsule by mouth once daily. - rimegepant (NURTEC ODT) 75 mg disintegrating tablet Take 1 tablet by mouth once daily as needed. No more than 1 dose in 24 hours. - prazosin (MINIPRESS) 5 mg cap Take 5 mg by mouth daily at bedtime. - mecobalamin, vitamin B12, 1,000 mcg ODT once daily. - VITAMIN D-3 125 mcg (5,000 unit) tab Take 5,000 Units by mouth once daily. - EPINEPHrine 0.1 mg/0.1 mL AutoInjector as needed. - lamoTRIgine (LAMICTAL) 150 mg tablet Take 150 mg by mouth daily at bedtime. - sertraline (ZOLOFT) 100 mg tablet Take 200 mg by mouth daily at bedtime. - levothyroxine (SYNTHROID) 112 mcg tablet Take 112 mcg by mouth daily before breakfast. Takes 1.5 tablets on Wednesdays - montelukast (SINGULAIR) 10 mg tablet Take 10 mg by mouth once daily. 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] 04/07/2015 Symptomatic bradycardia [R00.1] 05/24/2021 Blood pressure instability [I99.8] 05/24/2021 Subjective muscle weakness [M62.81] 05/24/2021 Physical deconditioning [R53.81] 05/24/2021 Transient diplopia [H53.2] 05/24/2021 Orthostatic lightheadedness [R42] 05/24/2021 Screening for endocrine disorder [Z13.29] 06/14/2021 Primary hypothyroidism [E03.9] 06/14/2021 Moderate persistent asthma without complication*07/25/2021 Gastroesophageal reflux disease [K21.9] 07/25/2021 Allergic rhinitis [J30.9] 07/25/2021 Allergic reaction to contrast dye [T50.8X5A] 07/25/2021 Drug reaction [T50.905A] 07/25/2021 Adverse food reaction [T78.1XXA] 07/25/2021 Diffuse pain [R52] 08/24/19 (more content not included)... Normal [facility] CNPNon 10-24-2021 CNPN Telephone (HEMTSA) LEANA TRAN ([id number]) 1985 F Date Time Provider Department 10/24/21 LORAINE VARGAS During your visit today, we recorded the following information about you: Loraine Vargas RN 10/24/2021 11:56 AM Signed Patient saw Dr. Bass last in July 2021 and he said to follow up id symptoms worsen. Patient calling and would like to be seen by one of our other physicians as she is having new onset swollen LN and night sweats. Loraine Vargas RN Allergies As of Date: 10/24/2021 Noted Allergy Reaction IODINATED CONTRAST MEDIA 02/23/2014 10 - Anaphylaxis Comments: Tolerated with pre-medication on 09/22/21 FISH CONTAINING PRODUCTS 07/25/2021 4 - Hives SHELLFISH DERIVED 07/25/2021 4 - Hives ALEVE (NAPROXEN) 09/06/2020 18 - Angioedema ASPIRIN 02/23/2014 18 - Angioedema CECLOR (CEFACLOR) 09/06/2020 12 - Shortness of Breath CEFTIN (CEFUROXIME AXETIL) 02/23/2014 12 - Shortness of Breath CLINDAMYCIN 02/23/2014 2 - Rash 12 - Shortness of Breath ERYTHROMYCIN 02/23/2014 7 - Swelling 12 - Shortness of Breath EUCALYPTUS 10/23/2020 10 - Anaphylaxis GATIFLOXACIN 2014 6 - Diarrhea LAVENDER (LAVANDULA ANGUSTIFOLIA) 09/06/2020 10 - Anaphylaxis PENICILLINS 02/23/2014 2 - Rash 9 - Itching SULFA (SULFONAMIDE ANTIBIOTICS) 05/18/2015 7 - Swelling 12 - Shortness of Breath VIOXX (ROFECOXIB) 06/08/2021 16 - Unknown FROYLAN 28 (DROSPIRENONE-ETHINYL ESTR*06/08/2021 14 - Other: See Comments Comments: Skin discoloration of feet with OCPs LATEX 02/23/2014 2 - Rash 9 - Itching Comments: Skin cracks and bleeds LEVOFLOXACIN 11/11/2020 2 - Rash Date Reviewed: 10/24/2021 Reviewed by: Cindy Rushing MD - Fully Assessed Reason for Visit: Appointment [186] Prescriptions as of 10/25/2021 - SITagliptin (JANUVIA) 100 mg tablet Take 1 tablet by mouth once daily. - Magnesium 250 mg tab Take 250 mg by mouth. - Flaxseed Oil oil Take 1,000 mg by mouth once daily. - Ascorbic Acid 100 mg tablet Take 100 mg by mouth once daily. - Zinc 50 mg tab Take by mouth. - fremanezumab-vfrm subcutaneus auto-injector 225 mg/1.5 mL (AJOVY) Inject 1.5 mL subcutaneously once every month. Do not shake. - UBRELVY 100 mg tablet TAKE 1 TABLET BY MOUTH AT ONSET OF MIGRAINE. MAY REPEAT IN 2 HOURS NEEDED. MAX 2 TABLET IN 24 HOURS - baclofen (LIORESAL) 10 mg tablet Take 10-20 mg by mouth at bedtime as needed. - famotidine (PEPCID) 40 mg tablet Take 40 mg by mouth as needed. - cetirizine (ZYRTEC) 10 mg tablet Take 10 mg by mouth as needed. - diphenhydrAMINE (BENADRYL) 25 mg tablet Take 50 mg by mouth every 6 hours as needed. - LORazepam (ATIVAN) 0.5 mg Take 0.5 mg by mouth twice daily as needed. - zonisamide (ZONEGRAN) 100 mg capsule Take 1 capsule by mouth once daily. - rimegepant (NURTEC ODT) 75 mg disintegrating tablet Take 1 tablet by mouth once daily as needed. No more than 1 dose in 24 hours. - prazosin (MINIPRESS) 5 mg cap Take 5 mg by mouth daily at bedtime. - mecobalamin, vitamin B12, 1,000 mcg ODT once daily. - VITAMIN D-3 125 mcg (5,000 unit) tab Take 5,000 Units by mouth once daily. - EPINEPHrine 0.1 mg/0.1 mL AutoInjector as needed. - budesonide-formoterol (SYMBICORT) 160-4.5 mcg/actuation inhaler Inhale 2 Puffs as instructed as needed. - lamoTRIgine (LAMICTAL) 150 mg tablet Take 150 mg by mouth daily at bedtime. - sertraline (ZOLOFT) 100 mg tablet Take 200 mg by mouth daily at bedtime. - levothyroxine (SYNTHROID) 112 mcg tablet Take 112 mcg by mouth daily before breakfast. Takes 1.5 tablets on Wednesdays - ALBUTEROL INHALATION Inhale as instructed as needed. - montelukast (SINGULAIR) 10 mg tablet Take 10 mg by mouth once daily. 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] 04/07/2015 Symptomatic bradycardia [R00.1] 05/24/2021 Blood pressure instability [I99.8] 05/24/2021 Subjective muscle weakness [M62.81] 05/24/2021 Physical deconditioning [R53.81] 05/24/2021 Transient diplopia [H53.2] 05/24/2021 Orthostatic lightheadedness [R42] 05/24/2021 Screening for endocrine disorder [Z13.29] 06/14/2021 Primary hypothyroidism [E03.9] 06/14/2021 Moderate persistent asthma without complication*07/25/2021 Gastroesophageal reflux disease [K21.9] 07/25/2021 Allergic rhinitis [J30.9] 07/25/2021 Allergic reaction to contrast dye [T50.8X5A] 07/25/2021 Drug reaction [T50.905A] 07/25/2021 Adverse food reaction [T78.1XXA] 07/25/2021 Diffuse pain [R52] 08/23/2021 Decreased activity tolerance [R68.89] 08/23/2021 Orthostatic intolerance [I95.1] 08/23/2021 Palpitations [R00.2] 10/20/2021 Encount (more content not included)... [facility] 3D LARS CA Don 10-19-2021 MG MAMM DIAGNOSTIC 3D LARS CAD Patient: LEANA TRAN Exam Date: 10/19/2021 : 1985 Gender:F Ordering : DR CAS DOWELL . Admission #: [id number] Family : Order #: [id number] CLICK HERE TO VIEW EXAM RADIOLOGY REPORT PROCEDURE: MAMMOGRAM DIAGNOSTIC 3D BILATERAL CAD, 10/19/2021, 10:03 ULTRASOUND BREAST BILATERAL LIMITED, 10/19/2021, 10:56 COMPARISON: None. INDICATIONS: Mass of upper limb Calculator Name NCI Breast Cancer Risk Assessment Tool 5 Year Breast Cancer Risk 0.40% Lifetime Breast Cancer Risk 10.00% Personal Breast Cancer No Personal Ovarian Cancer No Treatments None Family Cancers Mother with cervical cancer at age 50. LOCATION: [facility] BREAST COMPOSITION: Scattered areas fibroglandular density. FINDINGS: DIAGNOSTIC CATEGORY 2--BENIGN FINDING: RIGHT BREAST: Lymph node with fatty hilum and thin cortex present within the axillary tail. Ultrasound demonstrates a 2.1 x 1.2 x 1.8 cm benign appearing lymph node corresponding to the mammographic findings and palpable lump. LEFT BREAST: Lymph node with fatty hilum and thin cortex present within the axillary tail. Ultrasound demonstrates a 1.6 x 0.9 x 1.9 cm benign appearing lymph node corresponding to the mammographic findings and palpable lump. RECOMMENDATIONS: CLINICAL EVALUATION. PLEASE NOTE: A NORMAL MAMMOGRAM DOES NOT EXCLUDE THE POSSIBILITY OF BREAST CANCER. A CLINICALLY SUSPICIOUS PALPABLE LUMP SHOULD BE BIOPSIED. Dictated by: Husam Kim M.D. on 10/19/2021 at 11:07 Approved by: Husam Kim M.D. on 10/19/2021 at 11:10 Normal [facility] US BREAST LARS LIMITEDon - US BREAST LARS LIMITED Patient: LEANA TRAN Exam Date: 10/19/2021 : 1985 Gender:F Ordering : DR CAS DOWELL . Admission #: [id number] Family : Order #: [id number] CLICK HERE TO VIEW EXAM RADIOLOGY REPORT PROCEDURE: MAMMOGRAM DIAGNOSTIC 3D BILATERAL CAD, 10/19/2021, 10:03 ULTRASOUND BREAST BILATERAL LIMITED, 10/19/2021, 10:56 COMPARISON: None. INDICATIONS: Mass of upper limb Calculator Name NCI Breast Cancer Risk Assessment Tool 5 Year Breast Cancer Risk 0.40% Lifetime Breast Cancer Risk 10.00% Personal Breast Cancer No Personal Ovarian Cancer No Treatments None Family Cancers Mother with cervical cancer at age 50. LOCATION: [facility] BREAST COMPOSITION: Scattered areas fibroglandular density. FINDINGS: DIAGNOSTIC CATEGORY 2--BENIGN FINDING: RIGHT BREAST: Lymph node with fatty hilum and thin cortex present within the axillary tail. Ultrasound demonstrates a 2.1 x 1.2 x 1.8 cm benign appearing lymph node corresponding to the mammographic findings and palpable lump. LEFT BREAST: Lymph node with fatty hilum and thin cortex present within the axillary tail. Ultrasound demonstrates a 1.6 x 0.9 x 1.9 cm benign appearing lymph node corresponding to the mammographic findings and palpable lump. RECOMMENDATIONS: CLINICAL EVALUATION. PLEASE NOTE: A NORMAL MAMMOGRAM DOES NOT EXCLUDE THE POSSIBILITY OF BREAST CANCER. A CLINICALLY SUSPICIOUS PALPABLE LUMP SHOULD BE BIOPSIED. Dictated by: Husam Kim M.D. on 10/19/2021 at 11:07 Approved by: Husam Kim M.D. on 10/19/2021 at 11:10 Normal [facility] CHEST 2V FRONTAL/LATon [facility] ic LUNG DIFFUSION CAPACITY (FARHAD O)on 09-27-2021 DLCO (ml/min/mmHg) 22.00 ml/min/mmHg [facility] DLCO/VA (ml/min/mmHg/L) 4.60 ml/min/mmHg/L [facility] DLCOcor (ml/min/mmHg) 21.26 ml/min/mmHg [facility] ERV BOX (L) 0.28 L [facility]aeve SZY15-85% POST (L/S) 2.46 L/S [facility] eland [facility] EMA71-73% PRE (L/S) 2.13 L/S [facility] land [facility] FEV1 PRE (L) 2.83 L [facility] inic FEV1/FVC POST (%) 74 % [facility] nd [facility] FEV1/FVC PRE (%) 73 % [facility] d [facility] FEV1_POST (L) 2.92 L [facility] FRC Box (L) 1.66 L [facility]ve FVC POST (L) 3.92 [facility] FVC PRE (L) 3.89 L [facility] IC BOX (L) 2.36 L [facility] ic PEF POST (L/S) 5.48 L/S [facility] PEF PRE (L/S) 5.56 L/S [facility] RV Box (L) 1.39 L [facility] RV/TLC Box (%) 32 % [facility] TLC Box (L) 4.36 L [facility] maeve VA (L) 4.78 L [facility] ic VC (L) BOX 3.51 L [facility] ic CTA CHEST WO W CONon 022 CTA CHEST WO W CON EXAMINATION: CTA TONO ST WO W CON HISTORY: SHORTNESS OF BREATH elevated d-dimer COMPARISON: Chest x-ray 06/24/2021, CT chest 11/11/2020 TECHNIQUE: CT angiography of the pulmonary arteries following the administration of 100 mL Omnipaque 350 intravenous contrast. Coronal and sagittal MIP (maximum intensity projection) images were performed. 3-D reconstruction. Dose reduction techniques were achieved by using automated exposure control and/or adjustment of mA and/or kV according to patient size and/or use of iterative reconstruction technique. FINDINGS: No evidence for acute pulmonary embolism, thoracic aortic aneurysm, or aortic dissection. Borderline prominent heart size. No large pericardial effusion. Central airway is patent. Trace bilateral lower pleural effusions and mild bilateral lower lobe groundglass opacities reflecting mild pulmonary edema, less likely pneumonitis. No lung consolidation, pneumothorax, or honeycombing. Hepatic steatosis. No acute bony abnormality. IMPRESSION: No evidence for acute pulmonary embolism, thoracic aortic aneurysm, or aortic dissection. Trace bilateral lower pleural effusions and mild bilateral lower lobe groundglass opacities reflecting mild pulmonary edema, less likely pneumonitis. Electronically authenticated by: AYAKA STEARNS Date: 2021-09-22 22:30 Normal [facility] PROF CHEM 8 (BAS METB)on Anion gap [Moles/Vol] 5.4 mmol/L Normal [facility] Comment on above: Performed By: #### B MP #### [facility] [address] [place] [address] Dr. Nilton Mccall Calcium [Mass/Vol] 9.2 mg/dL Normal 8.5-10.1 [facility] Comment on above: Performed By: #### B MP #### [facility] [address] [address] Dr. Nilton Mccall Chloride [Moles/Vol] 102 mmol/L Normal 98-107 [facility] Comment on above: Performed By: #### B MP #### [facility] [address] [address] [address] Nilton Mccall CO2 [Moles/Vol] 26.1 mmol/L Normal 21.0-32.0 [facility] Comment on above: Performed By: #### B MP #### [facility] [address] [address] [address] Nilton Mccall Creatinine [Mass/Vol] 0.99 mg/dL Normal 0.55-1.02 [facility] Comment on above: Performed By: #### B MP #### [facility] [address] [address] [address] Nilton Mccall EGFR-AF SENEGALESE >60 Normal >=60 [facility] Comment on above: Performed By: #### B MP #### [facility] [address] [address] [address] Nilton Mccall EGFR-NON AF SENEGALESE >60 Normal >=60 [facility] Comment on above: Performed By: #### B MP #### [facility] [address] [address] [address] Nilton Mccall Glucose [Mass/Vol] 113 mg/dL Critically high 74-106 T [facility] Comment on above: Performed By: #### B MP #### [facility] [address] [address] [address] Nilton Mccall Potassium [Moles/Vol] 3.5 mmol/L Normal 3.5-5.1 [facility] Comment on above: Performed By: #### B MP #### [facility] [address] [address] [address] Nilton Mccall Sodium [Moles/Vol] 130 mmol/L Critically low 136-145 Th [facility] Comment on above: Performed By: #### B MP #### [facility] [address] [address] [address] Nilton Mccall Urea nitrogen [Mass/Vol] 13.0 mg/dL Normal 7.0-18.0 [facility] Comment on above: Performed By: #### B MP #### [facility] [address] [address] [address] Nilton Mccall Urea nitrogen/Creatinine [Mass ratio] 13.1 mg/mg Normal [facility] Comment on above: Performed By: #### B MP #### [facility] [address] [address] [address] Nilton Mccall GLYCOHEMOGLOBIN A1Con 2021 ADA RECOMMENDATION SEE BELOW Normal [facility] Comment on above: Result Comment: ADA RECOMMENDED LIMIT 4.0 - 6.0 ADA THERAPEUTIC TARGET < 7.0 ACTION SUGGESTED > 7.0 Performed By: #### C BC #### [facility] [address] [address] [address] Nilton Mccall Glucose [Mass/Vol] 140 mg/dL Normal [facility] Comment on above: Performed By: #### C BC #### [facility] [address] [place], [place] [address] Dr. Nilton Mccall HbA1c (Bld) [Mass fraction] 6.5 % Critically high 4.5 -6.2 [facility] Comment on above: Performed By: #### C BC #### [facility] [address] [place], [place] [address] Dr. Nilton Mccall ECHO 08-17-2021 Echocardiography Echocardiography Rep ort: Transthoracic Echo [facility] Date of service: 08/17/2021 2:18:31 PM Ordering physician: SAI PEREZ Indication: Hypotension Technologist: Yuni Durbin RDCS Interpreting physician: Gavin Muse MD PATIENT: Name: MRS. LEANA TRAN : 1985 Age: 35 years Gender: F Primary rhythm: sinus. Height: 162.60 cm BSA: 2.10 m? Weight: 97.52 kg BMI: 36.9 kg/m? Heart rate 57 bpm Blood pressure 108/72 mmHg Color Doppler was utilized to interrogate the cardiac valves assessed and spectral Doppler was utilized to determine the flow velocities and pressure gradients reported in this exam. MEASUREMENTS: Value Indexed Normal Max aortic dimension 2.4 cm Ao < 3.8 Left atrial volume 34 ml (biplane A-L) 16 ml/m? Edwin <= 34 LV ID (diastole) 4.7 cm (2D) 2.25 cm/m? LV ID (systole) 3.3 cm (2D) 1.57 cm/m? IVS, leaflet tips 0.8 cm (2D) Posterior wall thickness 0.8 cm (2D) Left ventricular mass 122 g (2D) 58 g/m? LV stroke volume 55 ml (2D biplane) LV end diastolic volume 95 ml (2D biplane) 45.4 ml/m? 29<=EDVi<62 LV end systolic volume 40 ml (2D biplane) 19.1 ml/m? Ejection Fraction 58 % (2D biplane) EF > 54 FINDINGS: LEFT VENTRICLE The left ventricle is normal in size. Left ventricular systolic function is normal. Normal left ventricular diastolic function. Mitral annular lateral E/e': 3.9. Mitral annular septal E/e': 6.9. Wall Motion: All scored segments are normal. RIGHT VENTRICLE The right ventricle is normal in size. Right ventricular systolic function is normal. Tricuspid annular displacement is 1.9 cm. Estimated right ventricular systolic pressure is not reported due to an insufficient tricuspid regurgitation signal. Estimated right atrial pressure is 3 mmHg based on IVC assessment. LEFT ATRIUM The left atrial cavity is normal in size. Pulmonary Veins: The pulmonary venous pattern showed normal systolic flow. RIGHT ATRIUM The right atrial cavity is normal in size. Inferior Vena Cava: The inferior vena cava appears normal. The vessel decreases greater than 50 percent with inspiration. MITRAL VALVE The mitral valve leaflets are structurally normal. There is trace mitral valve regurgitation. The pressure half time is 38 msec. The peak mitral E/A ratio is 1.70. The average mitral E/e' ratio is 5.4. The mitral flow deceleration time is 130 msec. TRICUSPID VALVE The tricuspid valve leaflets are structurally normal. There is no tricuspid valve regurgitation. AORTIC VALVE The aortic valve was not seen or not interrogated. There is no aortic valve regurgitation. The peak gradient is 9 mmHg (peak velocity = 148.7 cm/s). The mean gradient is 5 mmHg. The LVOT mean velocity is 82.3 cm/s. The aortic VTI is 30.1 cm. The mean velocity in the aortic valve is 106.3 cm/s. The dimensionless valve index is 0.87. PULMONIC VALVE The pulmonic valve cusps are structurally normal. There is trace (trace - 1+) pulmonic valve regurgitation. AORTA The visualized aorta is normal in size. Measurements - Aortic valve annulus 1.8 cm. Sinus: 2.4 cm. Sinotubular junction 2.1 cm. Mid ascending aorta 2.2 cm. PULMONARY ARTERIES The pulmonary arteries are normal. PERICARDIUM The pericardium is normal. There is no pericardial effusion. CONCLUSIONS: - Exam indication: Hypotension - The left ventricle is normal in size. Left ventricular systolic function is normal. EF = 58 ? 5% (2D biplane) Normal left ventricular diastolic function. - The right ventricle is normal in size. Right ventricular systolic function is normal. - Leaflets not well visualized. - The patient has not had a prior CC echocardiographic exam for comparison. * * * Final * * * CC [employer] [facility] : [id number] Normal [facility] LVEF ECHOon 08-17-2021 LV Ejection Fraction 58 % [facility] PAP ACOG PANEL 2: 30 to 65on 08-05-2021 . . Normal [facility] Comment on above: Result Comment: Perf ormed at: WB Performed By: #### P T, PTT #### [facility] [address] [place] [address] Dr. Nilton Mccall Age Gdln ACOG Testing - Normal [facility] Comment on above: Performed By: #### P T, PTT #### [facility] [address] [place] [address] Dr. Nilton Mccall DIAGNOSIS: Comment Normal [facility] Comment on above: Result Comment: NEGA TIVE FOR INTRAEPITHELIAL LESION OR MALIGNANCY. Performed at: WB Performed By: #### P T, PTT #### [facility] [address] [address] [address] Nilton Mccall HPV Aptima Negative Normal Negative [facility] Comment on above: Result Comment: This nucleic acid amplification test detects fourteen high-risk HPV types (16,18,31,33,35,39,45,51,52,56,58,59,66,68) without differentiation. Performed at: =G Performed By: #### P T, PTT #### [facility] [address] [address] [address] Nilton Mccall Methodology: Comment Normal [facility] Comment on above: Result Comment: This liquid based ThinPrep(R) pap test was screened with the use of an image guided system. Performed at: WB Performed By: #### P T, PTT #### [facility] [address] [place] [address] Dr. Nilton Mccall Note: Comment Normal [facility] Comment on above: Result Comment: The Pap smear is a screening test designed to aid in the detection of premalignant and malignant conditions of the uterine cervix. It is not a diagnostic procedure and should not be used as the sole means of detecting cervical cancer. Both false-positive and false-negative reports do occur. . Performed at: WB Performed By: #### P T, PTT #### [facility] [address] [address] [address] Nilton Mccall Performed by: Comment Normal [facility] [place] Comment on above: Result Comment: Jay Ellison Language Pathologist (ASCP) Performed at: WB Performed By: #### P T, PTT #### [facility] [address] [place], [place] [address] Dr. Nilton Mccall Specimen adequacy: Comment Normal [facility] Comment on above: Result Comment: Sati sfactory for evaluation. No endocervical component is identified. Performed at: WB Performed By: #### P T, PTT #### [facility] [address] [address] [address] Nilton Mccall C3 SerPl-mCncon 07-25-2021 Complement C3 [Mass/Vol] 165 mg/dL Normal 86-166 [facility] Comment on above: Order Comment: Speci men Type: BLOOD SPECIMEN Ordering Facility: [facility] Address: [address] [place] [address] Performed By: #### 4 485-9, 4498-2 #### [facility] CLIA [id number] [address] [place] [address] [place] C4 SerPl-mCncon 07-25-2021 Complement C4 [Mass/Vol] 32 mg/dL Normal 13-46 [facility] Comment on above: Order Comment: Speci men Type: BLOOD SPECIMEN Ordering Facility: [facility] Address: [address] [place] [address] Performed By: #### 4 485-9, 4498-2 #### [facility] CLIA [id number] [address] [place] [address] [place] TRYPTASE BLOODon 07-25-2021 Tryptase [Mass/Vol] 3.4 ug/L Normal <8.4 [facility] Comment on above: Order Comment: Speci men Type: BLOOD SPECIMEN Ordering Facility: [facility] Address: [address] [place] [address] Performed By: #### T RYPT #### [facility] CLIA [id number] [address] [place] [address] STATES OF [facility] ACTH [facility] 07-18-2021 Corticotropin (P) [Mass/Vol] 15.5 pg/mL 7.2 - 6 3.3 pg/mL [facility] CORTISOL [facility] 07-18-2021 Cortisol [Mass/Vol] 9.9 ug/dL 4.8 - 19.5 ug/dL [facility] Alpha tocopherol [Mass/Vol]o n 07-07-2021 Beta+gamma tocopherol [Mass/Vol] 3.0 mg/L 0.3 - 3.2 mg/L [facility] VITAMIN E/TOCOPHEROLon 07-07 Alpha tocopherol [Mass/Vol] 13.1 mg/L 6.0 - 23 .0 mg/L [facility] ACTH [facility] 07-02-2021 Corticotropin (P) [Mass/Vol] 15.1 pg/mL 7.2 - 6 3.3 pg/mL [facility] CERULOPLASMIN [facility] 07-02-19 22 Ceruloplasmin [Mass/Vol] 23 mg/dL 16 - 45 mg/ dL [facility] CK CREATINE KINASEon 022 CK [Catalytic activity/Vol] 51 U/L 42 - 196 U/L [facility] CORTISOL [facility] 07-01-2021 Cortisol [Mass/Vol] 7.4 ug/dL 4.8 - 19.5 ug/dL [facility] DHEA-S [facility] 07-01-2021 DHEA-S [Mass/Vol] 35.9 ug/dL Low 60.9 - 337.0 ug/dL [facility] FERRITIN [facility] 07-01-2021 Ferritin [Mass/Vol] 98.2 ng/mL 14.7 - 205.1 ng/ mL [facility] BNPon 06-24-2021 Natriuretic peptide B (Bld) [Mass/Vol] 15.0 pg/mL Normal <=450.0 [facility] Comment on above: Performed By: #### C BC #### [facility] [address] [address] [address] Nilton Mccall CARDIAC CHAYO 3-6on 2 CK [Catalytic activity/Vol] 60 U/L Normal 26-192 [facility] Comment on above: Performed By: #### C MREP #### [facility] [address] [address] [address] Nilton Mccall CK.MB [Mass/Vol] 0.33 ng/mL Normal <=3.60 [facility] Comment on above: Performed By: #### C MREP #### [facility] [address] [address] [address] Nilton Mccall HSTROP 4.7 pg/mL Normal 4.0-51.[address] [facility] Comment on above: Result Comment: CUT- OFF POINTS HAVE BEEN ESTABLISHED BASED ON THE FOURTH UNIVERSAL DEFINITIONS OF MYOCARDIAL INFARCTION. THE UPPER REFERENCE LIMIT (URL) OF TROPONIN, DEFINED THE 99TH PERCENTILE OF cTnI DISTRIBUTION IN A REFERENCE POPULATION, HAS BEEN CONFIRMED THE DECISION THRESHOLD FOR MS DIAGNOSIS. Performed By: #### C MREP #### [facility] [address] [place] [address] Dr. Nilton Mccall CARDIAC CHAYO ADMITon 022 CK [Catalytic activity/Vol] 71 U/L Normal 26-192 [facility] Comment on above: Performed By: #### C BC #### [facility] [address] [place] [address] Dr. Nilton Mccall CK.MB [Mass/Vol] 0.50 ng/mL Normal <=3.60 [facility] Comment on above: Performed By: #### C BC #### [facility] [address] [place] [address] Dr. Nilton Mccall HSTROP 3.8 pg/mL Critically low 4.0-51.3 [facility] Comment on above: Result Comment: CUT- OFF POINTS HAVE BEEN ESTABLISHED BASED ON THE FOURTH UNIVERSAL DEFINITIONS OF MYOCARDIAL INFARCTION. THE UPPER REFERENCE LIMIT (URL) OF TROPONIN, DEFINED THE 99TH PERCENTILE OF cTnI DISTRIBUTION IN A REFERENCE POPULATION, HAS BEEN CONFIRMED THE DECISION THRESHOLD FOR MS DIAGNOSIS. Performed By: #### C BC #### [facility] [address] [place] [address] Dr. Nilton Mccall PILI 25 ng/mL Normal 9-82 [facility] Comment on above: Performed By: #### C BC #### [facility] [address] [place] [address] Dr. Nilton Mccall CBC AUTO DIFFon 06-24-2021 BASO # 0.1 103/ul Normal 0.0-0.1 [facility] Comment on above: Performed By: #### C MP #### [facility] [address] [place] [address] Dr. Nilton Mccall Basophils/100 WBC (Bld) 0.6 % Normal 0.2-2.0 [facility] Comment on above: Performed By: #### C MP #### [facility] [address] [place] [address] Dr. Nilton Mccall EO # 0.2 103/ul Normal 0.0-0.7 [facility] Comment on above: Performed By: #### C MP #### [facility] [address] [place] [address] Dr. Nilton Mccall Eosinophils/100 WBC (Bld) 2.2 % Normal 0.9-7.0 [facility] Comment on above: Performed By: #### C MP #### [facility] [address] [place] [address] Dr. Nilton Mccall Erythrocyte distribution wid th (RBC) [Ratio] 11.8 % Normal 11.0-15.0 [facility] Comment on above: Performed By: #### C MP #### [facility] [address] [place] [address] Dr. Nilton Mccall Hematocrit (Bld) [Volume fraction] 43.4 % Normal 3 6.0-48.0 [facility] Comment on above: Performed By: #### C MP #### [facility] [address] [place] [address] Dr. Nilton Mccall Hemoglobin (Bld) [Mass/Vol] 14.8 g/dL Normal 12.0-16. 0 [facility] Comment on above: Performed By: #### C MP #### [facility] [address] [place] [address] Dr. Nilton Mccall IG # 0.04 10e3/ul Critically high 0.00-0.03 [facility] Comment on above: Performed By: #### C MP #### [facility] [address] [place] [address] Dr. Nilton Mccall IG % 0.4 % Normal 0.0-0.5 [facility] Comment on above: Performed By: #### C MP #### [facility] [address] [place] [address] Dr. Nilton Mccall LYMPH # 2.0 103/ul Normal 1.2-3.[address] [facility] Comment on above: Performed By: #### C MP #### [facility] [address] [place] [address] Dr. Nilton Mccall Lymphocytes/100 WBC (Bld) 21.5 % Normal 20.5-60.0 [facility] Comment on above: Performed By: #### C MP #### [facility] [address] [place] [address] Dr. Nilton Mccall MANUAL DIFF REQ NO Normal [facility] Comment on above: Performed By: #### C MP #### [facility] [address] [place] [address] Dr. Nilton Mccall MCH (RBC) [Entitic mass] 29.4 pg Normal 26.7-34.0 [facility] Comment on above: Performed By: #### C MP #### [facility] [address] [place] [address] Dr. Nilton Mccall MCHC (RBC) [Mass/Vol] 34.1 g/dL Normal 29.9-35.2 [facility] Comment on above: Performed By: #### C MP #### [facility] [address] [place] [address] Dr. Nilton Mccall MCV (RBC) [Entitic vol] 86.1 fL Normal 81.0-99.0 [facility] Comment on above: Performed By: #### C MP #### [facility] [address] [place] [address] Dr. Nilton Mccall MONO # 0.5 103/ul Normal 0.3-0.8 [facility] Comment on above: Performed By: #### C MP #### [facility] [address] [place] [address] Dr. Nilton Mccall Monocytes/100 WBC (Bld) 5.4 % Normal 1.7-12.0 [facility] Comment on above: Performed By: #### C MP #### [facility] [address] [place] [address] Dr. Nilton Mccall NEUT # 6.3 103/ul Normal 1.4-6.5 [facility] Comment on above: Performed By: #### C MP #### [facility] [address] [place] [address] Dr. Nilton Mccall Neutrophils/100 WBC (Bld) 69.9 % Normal 43.0-75.0 [facility] Comment on above: Performed By: #### C MP #### [facility] [address] [place] [address] Dr. Nilton Mccall Platelet mean volume (Bld) [Entitic vol] 9.6 fL Normal 9.5-13.5 [facility] Comment on above: Performed By: #### C MP #### [facility] [address] [place] [address] Dr. Nilton Mccall PLT 290 103/ul Normal 150-450 [facility] Comment on above: Performed By: #### C MP #### [facility] [address] [place] [address] Dr. Nilton Mccall RBC 5.04 106/ul Normal 4.20-5.40 [facility] Comment on above: Performed By: #### C MP #### [facility] [address] [place] [address] Dr. Nilton Mccall WBC 9.1 103/ul Normal 4.0-11.0 [facility] Comment on above: Performed By: #### C #### [facility] [address] STROKE HEAD WOon 06-25-[address] STROKE HEAD WO NONCONTRAST CT SCAN OF THE HEAD CT STROKE HEAD WO HISTORY: Headache 35-year-old. TECHNIQUE: Multiple axial images are taken from the level the vertex down to the base of the skull without the use of IV contrast. Images were then reconstructed in the sagittal and coronal planes. This exam was performed according to our departmental dose-optimization program which includes use of Automated Exposure Control, adjustment of the mA and/or kV according to patient size and/or use of iterative reconstruction technique. COMPARISON: Imaging that was performed earlier today at 6:47 PM. FINDINGS: Brain Parenchyma: No intracranial mass. On sagittal image 22-25, there is significant atrophy of the brain greater than expected for patient's young age. On axial image 30 of series 6 there is a 5.5 mm area of increased attenuation in the right ochoa radiata which was seen on the prior exam from earlier this evening although on this exam but appears more subtle. This may represent a small focus of contusion and/or evolving hematoma. On axial image 21 and coronal image 18 there is increased attenuation seen along the cortex of the right frontal lobe such that a contusion cannot be excluded. Posterior fossa: Normal. Midline shift: None Extra-axial fluid collection: None Ventricles: Normal. Mastoid air cells: Left mastoid air cells are partially opacified, seen best on axial image 5 of series 4. Sinuses: Mucus retention cysts seen in the sphenoid sinuses bilaterally. Cranium: No depressed skull fracture. Soft tissues: Normal. Orbits: Normal. IMPRESSION: 1. On axial image 21 and coronal image 18 there is increased attenuation seen along the cortex of the right frontal lobe such that a contusion cannot be excluded. MRI with diffusion weighted imaging recommended for further evaluation. 2. On axial image 30 of series 6, there is a 5.5 mm area of increased attenuation in the right ochoa radiata which was seen on the prior exam from earlier this evening, ( although on this exam this focus appears much more subtle.) This may represent an evolving contusion/ hematoma. 3. On sagittal image 24, there is significant atrophy of the brain greater than expected for patient's young age. 4. Left mastoid air cells are partially opacified, seen best on axial image 5 of series 4. These correlate clinically to exclude mastoiditis. Results from this patient were communicated via earlier CT to BRANDY [place]. Recommendations are unchanged. MRI is recommended. Electronically authenticated by: MAREK EPSTEIN Date: 2021-06-24 20:56 Normal The [facility] CT STROKE HEAD WO NONCONTRAST CT SCAN OF THE HEAD CT STROKE HEAD WO HISTORY:: 35-year-old female who has had a headache for several days now with facial numbness. TECHNIQUE: Multiple axial images are taken from the level the vertex down to the base of the skull without the use of IV contrast. Images were then reconstructed in the sagittal and coronal planes. This exam was performed according to our departmental dose-optimization program which includes use of Automated Exposure Control, adjustment of the mA and/or kV according to patient size and/or use of iterative reconstruction technique. COMPARISON: None. FINDINGS: Due to excessive motion artifact this exam is nondiagnostic. If there remains clinical concern for acute pathology, repeat imaging is recommended. Allowing for this motion on axial image 33, there may be a small focus of hemorrhage seen within the right ochoa radiata that measures approximately 6 mm. IMPRESSION: 1. Possible 6 mm focus of hemorrhage seen within the right ochoa radiata. However, evaluation is severely limited due to excessive motion artifact. 2. Otherwise, nondiagnostic exam due to excessive motion artifact. Repeat imaging is recommended. CRITICAL findings BRANDY Heaton was notified of the findings at 7:14 pm EST. Electronically authenticated by: MAREK EPSTEIN Date: 2021-06-24 19:15 Normal [facility]06 SARS-CoV-2 (COVID-19) RNA CHRISTI+probe Ql (Unsp spec) Not detected Normal NOT DETECTED The [facility] Comment on above: Result Comment: When diagnostic testing is negative, the possibility of a false negative should be considered in the context of a patient's recent exposures and the presence of clinical signs and symptoms consistent with SARS-CoV-2. This test is not yet approved or cleared by the [place] FDA. When there are no FDA-approved or cleared tests available, and other criteria are met, FDA can make tests available under an emergency access mechanism called an Emergency Use Authorization (EUA). The EUA for this test is supported by the [place] of Health and Human Service's declaration that circumstances exist to justify the emergency use of in vitro diagnostics for the detection and/or diagnosis of the virus that causes COVID-19. This EUA will remain in effect for the duration of the COVID-19 declaration justifying emergency of IVDs, unless it is terminated or revoked by the FDA (after which the test may no longer be used). Performed By: #### P T, PTT #### [facility] [address] [place] [address] Dr. Nilton Mccall ER URINE PROFILEon 2 Bilirubin Ql (U) Negative Normal NEGATIVE [facility] Comment on above: Performed By: #### E RUR, PREGU #### [facility] [address] [place] [address] Dr. Nilton Mccall Clarity (U) CLEAR Normal CLEAR The [facility] Comment on above: Performed By: #### E RUR, PREGU #### [facility] [address] [place] [address] Dr. Nilton Mccall Color (U) YELLOW Normal YELLOW [facility] Comment on above: Performed By: #### E RUR, PREGU #### [facility] [address] [place] [address] Dr. Nilton Mccall ERUAHD A micrscopic examina tion will be performed if indicated. Normal [facility] Comment on above: Performed By: #### E RUR, PREGU #### [facility] [address] [place] [address] Dr. Nilton Mccall Glucose Ql (U) Negative Normal NEGATIVE [facility] Comment on above: Performed By: #### E RUR, PREGU #### [facility] [address] [place] [address] Dr. Nilton Mccall Hemoglobin Ql (U) Negative Normal NEGATIVE The [facility] Comment on above: Performed By: #### E RUR, PREGU #### [facility] [address] [place] [address] Dr. Nilton Mccall Ketones Ql (U) Negative Normal NEGATIVE [facility] Comment on above: Performed By: #### E RUR, PREGU #### [facility] [address] [place] [address] Dr. Nilton Mccall LEUKOCYTES Negative Normal NEGATIVE [facility] Comment on above: Performed By: #### E RUR, PREGU #### [facility] [address] [place] [address] Dr. Nilton Mccall Nitrite Ql (U) Negative Normal NEGATIVE [facility] Comment on above: Performed By: #### E RUR, PREGU #### [facility] [address] [place] [address] Dr. Nilton Mccall pH (U) 6.0 [pH] Normal 5-[address] [facility] Comment on above: Performed By: #### E RUR, PREGU #### [facility] [address] [place] [address] Dr. Nilton Mccall SPEC GRAVITY 1.015 Normal 1.005-<=1.025 [facility] Comment on above: Performed By: #### E RUR, PREGU #### [facility] [address] [place] [address] Dr. Nilton Mccall UA PROTEIN Negative Normal NEGATIVE/ TRACE [facility] Comment on above: Performed By: #### E RUR, PREGU #### [facility] [address] [place] [address] Dr. Nilton Mccall UR MICRO IND NOT INDICATED Normal [facility] Comment on above: Performed By: #### E RUR, PREGU #### [facility] [address] [place] [address] Dr. Nilton Mccall Urobilinogen Qn (U) 0.2 {Zarina'U}/dL Normal 0.2 - 1. 0 [facility] Comment on above: Performed By: #### E RUR, PREGU #### [facility] [address] [place] [address] Dr. Nilton Mccall LACTATE/LACTIC ACIDon 2021 Lactate [Moles/Vol] 1.0 mmol/L Normal 0.4-1.9 [facility] Comment on above: Performed By: #### P T, PTT #### [facility] [address] [place] [address] Dr. Nilton Mccall LIPASEon 06-24-2021 Lipase [Catalytic activity/Vol] 103.0 U/L Normal 73.0 -393.0 [facility] Comment on above: Performed By: #### C BC #### [facility] [address] [address] [address] Nilton Mccall PH VENOUS BLOODon 06-24-2021 PCO2 VENOUS 29.4 mmHg Critically low 40.0-52.0 [facility] Comment on above: Performed By: #### P T, PTT #### [facility] [address] [place] [address] Dr. Nilton Mccall pH VENOUS 7.478 Critically high 7.330-7.430 [facility] Comment on above: Performed By: #### P T, PTT #### [facility] [address] [place] [address] Dr. Nilton Mccall POINT OF CARE GLUCOSEon 06-06 Glucose [Mass/Vol] 107 mg/dL Critically high 74-106 [facility] Comment on above: Performed By: #### C MP #### [facility] [address] [place] [address] Dr. Nilton Mccall URon 06-24-2021 , QUAL Negative Normal NEGATIVE [facility] Comment on above: Performed By: #### E RUR, PREGU #### [facility] [address] [place] [address] Dr. Nilton Mccall PROTIMEon 06-24-2021 INR Coag (PPP) [Relative time] 0.99 {INR} Normal [facility] Comment on above: Performed By: #### P T, PTT #### [facility] [address] [place] [address] Dr. Nilton Mccall INR GUIDELINES SEE BELOW Normal [facility] Comment on above: Result Comment: JOSS RED INR: 2.0 - 3.0 CONDITIONS NOT LISTED BELOW 2.5 - 3.5 FOR PROSTHETIC HEART VALVE REPLACEMENT 2.5 - 3.5 RECURRENT THROMBOSIS Performed By: #### P T, PTT #### [facility] [address] [place] [address] Dr. Nilton Mccall PT Coag (PPP) [Time] 10.7 s Normal 9.0-11.6 [facility] Comment on above: Performed By: #### P T, PTT #### [facility] [address] [place] [address] Dr. Nilton Mccall PTTon 06-24-2021 aPTT Coag (Bld) [Time] 32.5 s Normal 22.3-36.2 [facility] Comment on above: Performed By: #### P T, PTT #### [facility] [address] [place] [address] Dr. Nilton Mccall TSHon 06-24-2021 TSH 0.655 uIU/mL Normal 0.358-3.740 [facility] Comment on above: Performed By: #### C BC #### [facility] [address] [place] [address] Dr. Nilton Mccall TSH RANGE SEE BELOW Normal The [facility] Comment on above: Result Comment: <0.3 4 UIU/ml HYPERTHYROID 0.34-5.60 UIU/ml EUTHYROID >5.60 UIU/ml HYPOTHYROID Performed By: #### C BC #### [facility] [address] [place] [address] Dr. Nilton Mccall XR CHEST 1 Von 06-24-2021 XR CHEST 1 V EXAMINATION: XR CHES T 1 V HISTORY: Twitching COMPARISON: Chest x-ray 11/14/2020. TECHNIQUE: Portable chest FINDINGS: The lung parenchyma is free of consolidation or infiltrate. No pneumothorax or pleural effusion. The cardiac, mediastinal and hilar contours are normal. The visualized osseous structures exhibit no gross abnormality. IMPRESSION: Normal chest x-ray Electronically authenticated by: BELÉN DC Date: 2021-06-24 19:14 Normal [facility] Basic Metabolic Panelon 05-1 Anion gap [Moles/Vol] 11 mmol/L 9 - 17 mmol/L [facility] Calcium [Mass/Vol] 9.3 mg/dL 8.6 - 10.4 mg/dL [facility] Chloride [Moles/Vol] 102 mmol/L 98 - 107 mmol/L [facility] CO2 [Moles/Vol] 23 mmol/L 20 - 31 mmol/L [facility] Creatinine [Mass/Vol] 0.78 mg/dL 0.50 - 0.90 mg /dL [facility] GFR >60 >60 mL/min [facility] GFR Non- >60 >60 mL/min [facility] Glucose [Mass/Vol] 160 mg/dL High 70 - 99 mg/dL [facility] Interpretation and review of laboratory results Abnormal [facility] Potassium [Moles/Vol] 3.7 mmol/L 3.7 - 5.3 mmol /L [facility] Sodium [Moles/Vol] 136 mmol/L 135 - 144 mmol/L [facility] Urea nitrogen (BldV) [Mass/Vol] 12 mg/dL 6 - 20 mg/dL [facility] Urea nitrogen/Creatinine (Bl d) [Mass ratio] [address] [facility] CBC with Auto Differentialon 06-21-2021 Absolute Eos # 0.21 [facility] th Absolute Immature Granulocyte 0.03 [facility] Absolute Lymph # 2.43 [facility] alth Absolute [place] [facility] 0.43 [facility] Basophils (Bld) [#/Vol] 0.05 10*3/uL [facility] Basophils/100 WBC (Bld) 1 % 0 - 2 % [facility] Eosinophils/100 WBC (Bld) 3 % 1 - 4 % [facility] Hematocrit (Bld) [Volume fraction] 41.8 % 3 6.3 - 47.1 % [facility] Hemoglobin.gastrointestinal spec 1 Ql (Stl) 14.0 g/dL 11.9 - 15.1 g/dL [facility] Immature granulocytes/100 WBC (Bld) 0 % 0 [facility] Interpretation and review of laboratory results Abnormal [facility] Lymphocytes/100 WBC (Bld) 29 % 24 - 43 % [facility] MCH (RBC) [Entitic mass] 29.2 pg 25.2 - 33.5 pg [facility] MCHC (RBC) [Mass/Vol] 33.5 g/dL 28.4 - 34.8 g/ dL [facility] MCV (RBC) [Entitic vol] 87.1 fL 82.6 - 102.9 fL [facility] Monocytes/100 WBC (Bld) 5 % 3 - 12 % M [facility] NRBC Automated 0.0 0.0 per 100 WBC [facility] Platelet distribution width (Bld) [Ratio] 11.5 % Low 11.8 - 14.4 % [facility] Platelet mean volume (Bld) [ Entitic vol] 9.6 fL 8.1 - 13.5 fL [facility] Platelets (Bld) [#/Vol] 264 10*3/uL [facility] RBC (Bld) [#/Vol] 4.80 10*6/uL 3.95 - 5.11 m/uL [facility] Segmented neutrophils/100 WBC (Bld) 62 % 36 - 65 % [facility] Segs [facility] [#/Vol] 8.3 10*3/uL [facility] Laboratory - Chemistry and C hemistry - challengeon 06-21-2021 GFR/1.73 sq M.predicted MDRD (S/P/Bld) [Vol rate/Area] [facility] Comment on above: Average GFR for 30-3 9 years old: 107 mL/min/1.73sq m Chronic Kidney Disease: <60 mL/min/1.73sq m Kidney failure: <15 mL/min/1.73sq m eGFR calculated using average adult body mass. Additional eGFR calculator available at: http://[email or web address]/multiple_crcl_2012.htm Stage 1: Some kidney damage normal GFR Stage 2: Mild kidney damage GFR 60-89 Stage 3: Moderate kidney damage GFR 30-59 Stage 4: Severe kidney damage GFR 15-29 Stage 5: Severe kidney damage GFR <15 ESRD - chronic treatment by dialysis or transplant Magnesiumon 06-21-2021 Magnesium [Mass/Vol] 1.8 mg/dL 1.6 - 2.6 mg/dL [facility] TSHon 06-21-2021 TSH Qn 1.33 m[IU]/L [facility] Troponinon 06-21-2021 Troponin, High Sensitivity <6 0 - 14 ng /L [facility] Comment on above: High Sensitivity Troponin values cannot be compared with other Troponin methodologies. Patients with high levels of Biotin oral intake (i.e >5mg/day) may have falsely decreased Troponin levels. Samples collected within 8 hours of biotin intake may require additional information for diagnosis. [facility] XR CHEST PORTABLEon 06-22-19 No acute cardiopulmo nary disease. [facility] RIS CONSOLIDATE D EXAMINATION: ONE XRAY VIEW OF THE CHEST 06/21/2021 12:52 am COMPARISON: 05/20/2021 HISTORY: ORDERING SYSTEM PROVIDED HISTORY: chest pain TECHNOLOGIST PROVIDED HISTORY: chest pain FINDINGS: Heart size and configuration are normal. Hilar and mediastinal structures are unremarkable. The lungs are clear. No pneumothorax or pleural fluid. No acute bone finding. [facility] RIS CONSOLID[facility] D Armando Stern MD - 06/21/2021 EXAMINATION: ONE XRAY VIEW OF THE CHEST 06/21/2021 12:52 am COMPARISON: 05/20/2021 HISTORY: ORDERING SYSTEM PROVIDED HISTORY: chest pain TECHNOLOGIST PROVIDED HISTORY: chest pain FINDINGS: Heart size and configuration are normal. Hilar and mediastinal structures are unremarkable. The lungs are clear. No pneumothorax or pleural fluid. No acute bone finding. IMPRESSION: No acute cardiopulmonary disease. [facility] Work Phone: Radiology Study observation (narrative) [facility] Work Phone: XR CHEST PORTABLEOrdered By: Armando Stern on 06-21-2021 [facility] Work Phone: [employer] 06-16-2021 [facility] HNO ID: [id number] Author: RT Geovanna(R) Service: ? Author Type: Technologist Type: Allied Health Filed: 06/16/2021 11:27 AM Note Text: Radiology Service Progress Note DATE OF SERVICE: June 16, 2021 TIME: 11:05 AM PATIENT IDENTITY VERIFICATION COMPLETED USING TWO (2) STANDARD IDENTIFIERS: Name and Date of confirmed by patient verbally and Name and Date of confirmed by identification band. FALL SCREENING: Has the patient had 2 falls in the last year or 1 fall with injury or currently using an Ambulatory Assistive Device (Walker, Cane, Wheelchair, Crutches, etc.)? No PATIENT GENDER DATA: Female. status: : No status: NO. PATIENT RELEVANT IMPLANT DATA REVIEWED: Yes ALLERGIES: Reviewed and unchanged CONTRAST ALLERGY: NO. EXAM: MRI - CONTRAST TYPE: GROUP II PERIPHERAL IV DATA: Ambulatory: A peripheral IV was started in the Left with a Butterfly: 23 gauge. RADIOLOGY DEPARTMENT: MR; Exam(s) Completed: Head: Multiple Sclerosis SIGNATURE: Evelyn Montaño, RT(R), Jolanta Jordan, RT(R) PATIENT NAME: Leana Tran DATE: June 16, 2021 TIME: 11:05 AM [facility] MRI BRAIN WO/W IVCONon 06-16 MRI BRAIN WO/W IVCON * * *Final Report* * * DATE OF EXAM: Jun 16 2021 11:27AM [facility] 0295 - MRI BRAIN WO/W IVCON / PROCEDURE REASON: Demyelinating disease of central nervous system (HCC) * * * * Physician Interpretation * * * * EXAMINATION: MRI BRAIN WO/W IVCON HISTORY: Demyelinating disease of central nervous system (HCC). TECHNIQUE: Demyelinating brain MRI protocol without and with contrast including diffusion images. MQ: [id number] Contrast: 20 mL Dotarem IV COMPARISON: MRI brain dated 03/31/2016. RESULT: Acute Change: There is no evidence of restricted diffusion to suggest an acute infarct. Hemorrhage: No evidence of acute hemorrhage on the sequences obtained. Mass Lesion/ Mass Effect: No evidence of an intracranial mass or extra-axial fluid collection. No abnormal parenchymal or leptomeningeal enhancement is noted following contrast administration. No significant mass effect. Chronic Change: The white matter is within normal limits of signal intensity for age. Parenchyma: No significant volume loss for age. The brain parenchyma is otherwise within normal limits of signal intensity and morphology. Ventricles: Normal caliber and morphology. Skull Base: Hypothalamic and pituitary region are grossly normal. Craniocervical junction is normal. No significant marrow replacement process. Vasculature: Major intracranial arterial structures, and dural venous sinuses show typical flow void, suggesting patency by spin echo criteria. Other: Trace fluid is seen in the left inferior mastoid air cells. Small likely retention cyst in the right sphenoid sinus. Trace right frontal and anterior ethmoid sinus mucosal thickening. Small likely retention cysts in the lower aspects of the maxillary sinuses.. The orbits and extracranial soft tissues are unremarkable. IMPRESSION: Trace fluid in the left mastoid air cells, small likely retention cysts in the maxillary and right sphenoid sinuses, and trace right frontal and bilateral ethmoid sinus mucosal thickening. Otherwise, unremarkable MRI examination of the brain with and without contrast. Cmm Inspector: PSCB Transcribe Date/Time: Jun 16 2021 11:31A Dictated by : ANNA BOLAND MD This examination was interpreted and the report reviewed and electronically signed by: ANNA BOLAND MD on Jun 16 2021 11:53AM EST [id number] Normal [facility] ACTH BLDon 06-14-2021 Corticotropin (P) [Mass/Vol] 11.6 pg/mL 7.2 - 6 3.3 pg/mL [facility] Basic Metabolic Panel w/ Ref douglas to [facility] 05-20-2021 Anion gap [Moles/Vol] 11 mmol/L 9 - 17 mmol/L [facility] Calcium [Mass/Vol] 9.1 mg/dL 8.6 - 10.4 mg/dL [facility] [employer] Chloride [Moles/Vol] 103 mmol/L 98 - 107 mmol/L [facility] [employer] CO2 [Moles/Vol] 23 mmol/L 20 - 31 mmol/L [facility] [employer] Creatinine [Mass/Vol] 0.74 mg/dL 0.50 - 0.90 mg /dL [facility] [employer] GFR >60 >60 mL/min [facility] GFR Non- >60 >60 mL/min [facility] [employer] Glucose [Mass/Vol] 101 mg/dL High 70 - 99 mg/dL [facility] Interpretation and review of laboratory results Abnormal [facility] [employer] Potassium [Moles/Vol] 3.7 mmol/L 3.7 - 5.3 mmol /L [facility] [employer] Sodium [Moles/Vol] 137 mmol/L 135 - 144 mmol/L [facility] Urea nitrogen (BldV) [Mass/Vol] 9 mg/dL 6 - 20 mg/dL [facility] Urea nitrogen/Creatinine (Bl d) [Mass ratio] 12 [facility] [employer] Brain Natriuretic Peptideon 05-20-2021 Natriuretic peptide B (Bld) [Mass/Vol] 173 pg/mL <300 [facility] Comment on above: An age-independent cutoff point of 300 pg/ml has a 98% negative predictive value excluding acute heart failure. C-Reactive Proteinon 04-15-2 022 CRP [Mass/Vol] mg/L 0.0 - 5.0 mg/L [facility] CBC with Auto Differentialon 05-20-2021 Absolute Eos # 0.18 [facility] th Absolute Immature Granulocyte 0.03 [facility] Absolute Lymph # 1.75 [facility] alth Absolute [place] # 0.29 [facility] lt Basophils (Bld) [#/Vol] 0.03 10*3/uL [facility] Basophils/100 WBC (Bld) 0 % 0 - 2 % [facility] Eosinophils/100 WBC (Bld) 3 % 1 - 4 % [facility] Hematocrit (Bld) [Volume fraction] 43.8 % 3 6.3 - 47.1 % [facility] Hemoglobin.gastrointestinal spec 1 Ql (Stl) 14.6 g/dL 11.9 - 15.1 g/dL [facility] Immature granulocytes/100 WBC (Bld) 0 % 0 [facility] Interpretation and review of laboratory results Abnormal [facility] Lymphocytes/100 WBC (Bld) 25 % 24 - 43 % [facility] MCH (RBC) [Entitic mass] 29.0 pg 25.2 - 33.5 pg [facility] MCHC (RBC) [Mass/Vol] 33.3 g/dL 28.4 - 34.8 g/ dL [facility] MCV (RBC) [Entitic vol] 86.9 fL 82.6 - 102.9 fL [facility] Monocytes/100 WBC (Bld) 4 % 3 - 12 % [facility] NRBC Automated 0.0 0.0 per 100 WBC [facility] Platelet distribution width (Bld) [Ratio] 11.5 % Low 11.8 - 14.4 % [facility] Platelet mean volume (Bld) [ Entitic vol] 9.5 fL 8.1 - 13.5 fL [facility] Platelets (Bld) [#/Vol] 242 10*3/uL [facility] RBC (Bld) [#/Vol] 5.04 10*6/uL 3.95 - 5.11 m/uL [facility] Segmented neutrophils/100 WBC (Bld) 68 % High 36 - 65 % [facility] Segs [facility]ld) [#/Vol] 7.0 10*3/uL [facility] CT ABDOMEN PELVIS WO CONTRAS T Additional Contrast? Noneon 05-20-2021 1. No acute abdomina l or pelvic findings. 2. There is diastasis of the rectus abdominus fascia in the midline lower abdomen measuring up to 3 cm. A loop of colon is seen to protrude into the small defect without evidence of incarceration. 3. Hepatic steatosis [facility] RIS CONSOLID[facility] D EXAMINATION: CT OF THE ABDOMEN AND PELVIS WITHOUT CONTRAST 05/20/2021 3:08 pm TECHNIQUE: CT of the abdomen and pelvis was performed without the administration of intravenous contrast. Multiplanar reformatted images are provided for review. Dose modulation, iterative reconstruction, and/or weight based adjustment of the mA/kV was utilized to reduce the radiation dose to as low as reasonably achievable. COMPARISON: CT abdomen/pelvis dated 16 April 2021 HISTORY: ORDERING SYSTEM PROVIDED HISTORY: rlq pain, hernia TECHNOLOGIST PROVIDED HISTORY: rlq pain, hernia Decision Support Exception - unselect if not a suspected or confirmed emergency medical condition->Emergency Medical Condition (MA) Is the patient ?->No FINDINGS: Lower Chest: Lung bases are clear Organs: Diffuse hepatic steatosis. Status post cholecystectomy. Spleen and pancreas are normal. Adrenal glands are normal. The kidneys are normal GI/Bowel: The stomach and small bowel loops are normal without evidence of obstruction. The large bowel is normal without evidence of surrounding inflammatory change. Status post appendectomy. Pelvis: Urinary bladder is normal. Uterus is absent. Previously seen left ovarian cyst has resolved. Ovaries appear within normal limits on today's exam. Peritoneum/Retroperitoneum: The aorta is normal caliber. No lymphadenopathy. Bones/Soft Tissues: There is diastasis of the rectus abdominus fascia in the midline lower abdomen measuring proximally 3 cm. A loop of bowel is seen to protrude into the resulting defect but there is no evidence of incarceration or obstruction. No suspicious osseous lesions. [facility] RIS CONSOLIDATE D Jesus Unger P - 05/20/2021 EXAMINATION: CT OF THE ABDOMEN AND PELVIS WITHOUT CONTRAST 05/20/2021 3:08 pm TECHNIQUE: CT of the abdomen and pelvis was performed without the administration of intravenous contrast. Multiplanar reformatted images are provided for review. Dose modulation, iterative reconstruction, and/or weight based adjustment of the mA/kV was utilized to reduce the radiation dose to as low as reasonably achievable. COMPARISON: CT abdomen/pelvis dated 16 April 2021 HISTORY: ORDERING SYSTEM PROVIDED HISTORY: rlq pain, hernia TECHNOLOGIST PROVIDED HISTORY: rlq pain, hernia Decision Support Exception - unselect if not a suspected or confirmed emergency medical condition->Emergency Medical Condition (MA) Is the patient ?->No FINDINGS: Lower Chest: Lung bases are clear Organs: Diffuse hepatic steatosis. Status post cholecystectomy. Spleen and pancreas are normal. Adrenal glands are normal. The kidneys are normal GI/Bowel: The stomach and small bowel loops are normal without evidence of obstruction. The large bowel is normal without evidence of surrounding inflammatory change. Status post appendectomy. Pelvis: Urinary bladder is normal. Uterus is absent. Previously seen left ovarian cyst has resolved. Ovaries appear within normal limits on today's exam. Peritoneum/Retroperitoneum: The aorta is normal caliber. No lymphadenopathy. Bones/Soft Tissues: There is diastasis of the rectus abdominus fascia in the midline lower abdomen measuring proximally 3 cm. A loop of bowel is seen to protrude into the resulting defect but there is no evidence of incarceration or obstruction. No suspicious osseous lesions. IMPRESSION: 1. No acute abdominal or pelvic findings. 2. There is diastasis of the rectus abdominus fascia in the midline lower abdomen measuring up to 3 cm. A loop of colon is seen to protrude into the small defect without evidence of incarceration. 3. Hepatic steatosis [employer] Work Phone: Radiology Study observation (narrative) [employer] Work Phone: CT ABDOMEN PELVIS WO CONTRAS T Additional Contrast? NoneOrdered By: Jesus Unger on 05-20-2021 [employer] Work Phone: D-Dimer, Quantitativeon 05-06 D-Dimer, Quant 0.34 [facility] Comment on above: When combined with a low clinical probability, a D dimer value of <0.50 mg/L FEU is considered negative for DVT and PE (negative predictive value of 98%, sensitivity of 97%). If this test is not being used to help rule out DVT and PE, then the following reference range should be utilized: 0.00 - 0.59 mg/L FEU. The D-Dimer assay is intended for use as an aid in the diagnosis of venous thromboembolism (DVT and PE) and the results should be interpreted in conjunction with the patient's medical history, clinical presentation, and other findings. Elevated levels of D-dimer activity can be seen in any state of coagulation activation and is not recommended in patients with therapeutic dose anticoagulant therapy for >24 hours, fibrinolytic therapy within the previous 7 days, trauma or surgery within the previous 4 weeks, disseminated malignancies, aortic aneurysm, sepsis, severe infections, pneumonia, severe skin infections, liver cirrhosis, advanced age, coronary disease, diabetes, and . A very low percentage of patients with DVT may yield D-dimer results below the cutoff of 0.5 mg/L FEU. This is known to be more prevalent in patients with distal DVT. [facility] Drug screen multi urineon Amphetamine Screen, Ur Negative NEGATIVE [facility] [employer] Barbiturate Screen, Ur Negative NEGATIVE [facility] [employer] Benzodiazepine Screen, Urine Negative NEGATIV E [facility] Buprenorphine Urine Negative NEGATIVE [facility] [employer] Cannabinoid Scrn, Ur Negative NEGATIVE [facility] [employer] Cocaine Metabolite, Urine Negative NEGATIVE [facility] [employer] Methadone Screen, Urine Negative NEGATIVE [facility] [employer] Methamphetamine, Urine Negative NEGATIVE [facility] [employer] Opiates, Urine Negative NEGATIVE [facility] th Oxycodone Screen, Ur Negative NEGATIVE [facility] [employer] Phencyclidine, Urine Negative NEGATIVE [facility] [employer] Propoxyphene, Urine Negative NEGATIVE [facility] [employer] Tricyclic Antidepressants, Urine Negative NEG ATIVE [facility] [employer] Comment on above: Drug screen results are to be used for medical purposes only. All positive results are unconfirmed. Testing for employment or legal uses should be sent to a reference laboratory for confirmation. [facility] EKG 12 LeadOrdered By: Gosia quinn on 05-20-2021 Atrial Rate 51 BPM [employer] Phone: P [place] 56 degrees [employer] Phone: P-R Interval 152 ms [employer] Phone: Q-T Interval 448 ms [employer] Phone: QRS Duration 90 ms [employer] Phone: QTc Calculation (Bazett) 412 ms [employer] Phone: R [place] 79 degrees [employer] Phone: T [place] 62 degrees [employer] Phone: Ventricular Rate 51 BPM [facility] Work Phone: [facility] Work Phone: EKG 12 Leadon 05-20-2021 Sinus bradycardia wi th sinus arrhythmia T wave abnormality, consider anterior ischemia Abnormal ECG When compared with ECG of 16-APR-2021 20:11, No significant change was found Confirmed by Gosia Rangel MD ([id number]) on 05/20/2021 6:51:52 PM [facility] RADIOLOGY Gosia Rangel MD - 05/20/2021 Sinus bradycardia with sinus arrhythmia T wave abnormality, consider anterior ischemia Abnormal ECG When compared with ECG of 16-APR-2021 20:11, No significant change was found Confirmed by Gosia Rangel MD ([id number]) on 05/20/2021 6:51:52 PM [facility] Work Phone: Laboratory - Chemistry and C hemistry - challengeon 05-20-2021 GFR/1.73 sq M.predicted MDRD (S/P/Bld) [Vol rate/Area] [facility] Comment on above: Average GFR for 30-3 9 years old: 107 mL/min/1.73sq m Chronic Kidney Disease: <60 mL/min/1.73sq m Kidney failure: <15 mL/min/1.73sq m eGFR calculated using average adult body mass. Additional eGFR calculator available at: http://www.MobiTV/multiple_crcl_2012.htm Stage 1: Some kidney damage normal GFR Stage 2: Mild kidney damage GFR 60-89 Stage 3: Moderate kidney damage GFR 30-59 Stage 4: Severe kidney damage GFR 15-29 Stage 5: Severe kidney damage GFR <15 ESRD - chronic treatment by dialysis or transplant Lactic Acidon 05-20-2021 Lactate [Moles/Vol] 0.9 mmol/L 0.5 - 2.2 mmol/L [facility] Lipaseon 05-20-2021 Lipase [Catalytic activity/Vol] 46 U/L 13 - 60 U/L [facility] Microscopic Urinalysison - [facility] Bacteria, UA TRACE Abnormal None [facility] Epithelial Cells UA 0 TO 2 [facility] Interpretation and review of laboratory results Abnormal [facility] RBC, UA None [facility] WBC, UA None [facility] No Panel Informationon 05-20 [facility] Sedimentation Rateon 022 Sed Rate [address] [facility] TSH with Reflexon 05-20-2021 TSH Qn 1.20 m[IU]/L [facility] Troponinon 05-20-2021 Troponin, High Sensitivity <6 0 - 14 ng /L [facility] Comment on above: High Sensitivity Troponin values cannot be compared with other Troponin methodologies. Patients with high levels of Biotin oral intake (i.e >5mg/day) may have falsely decreased Troponin levels. Samples collected within 8 hours of biotin intake may require additional information for diagnosis. [facility] Troponin, High Sensitivity <6 0 - 14 ng /L [facility] Comment on above: High Sensitivity Troponin values cannot be compared with other Troponin methodologies. Patients with high levels of Biotin oral intake (i.e >5mg/day) may have falsely decreased Troponin levels. Samples collected within 8 hours of biotin intake may require additional information for diagnosis. Urinalysis with Reflex to Cu ltureon 05-20-2021 Bilirubin Urine Negative NEGATIVE [facility] lt Color, UA Yellow Yellow [facility] Glucose, Ur Negative NEGATIVE [facility] Interpretation and review of laboratory results Abnormal [facility] Ketones Ql (U) Negative NEGATIVE [facility] Leukocyte esterase Test strip Ql (U) Negative NEGATIVE [facility] Nitrite, Urine Negative NEGATIVE [facility] pH, UA 6.0 [facility] Protein, UA Negative NEGATIVE [facility] Specific [place], UA <1.[address] [facility] Turbidity UA Clear Clear [facility] Urine Hgb Negative NEGATIVE [facility] Urobilinogen, Urine Normal Normal [facility] XR CHEST PORTABLEon 05-21-19 No abnormalities not ed. [facility] RIS CONSOLIDATE D EXAMINATION: ONE XRAY VIEW OF THE CHEST 05/20/2021 1:33 pm COMPARISON: 04/16/2021 HISTORY: ORDERING SYSTEM PROVIDED HISTORY: chest pain TECHNOLOGIST PROVIDED HISTORY: chest pain FINDINGS: The lungs appear clear. The heart and mediastinal structures are unremarkable. Bony thorax appears normal. Visualized upper abdomen is unremarkable. [facility] RIS CONSOLIDATE D Yoel Shabazz MD - 05/20/2021 EXAMINATION: ONE XRAY VIEW OF THE CHEST 05/20/2021 1:33 pm COMPARISON: 04/16/2021 HISTORY: ORDERING SYSTEM PROVIDED HISTORY: chest pain TECHNOLOGIST PROVIDED HISTORY: chest pain FINDINGS: The lungs appear clear. The heart and mediastinal structures are unremarkable. Bony thorax appears normal. Visualized upper abdomen is unremarkable. IMPRESSION: No abnormalities noted. [facility] Work Phone: Radiology Study observation (narrative) [facility] Work Phone: XR CHEST PORTABLEOrdered By: Yoel Shabazz on 05-20-2021 [employer] Work Phone: Basic Metabolic Panel w/ Ref douglas to MGon 04-16-2021 Anion gap [Moles/Vol] 11 mmol/L 9 - 17 mmol/L [facility] Calcium [Mass/Vol] 9.8 mg/dL 8.6 - 10.4 mg/dL [facility] Chloride [Moles/Vol] 99 mmol/L 98 - 107 mmol/L [facility] CO2 [Moles/Vol] 24 mmol/L 20 - 31 mmol/L [facility] Creatinine [Mass/Vol] 0.85 mg/dL 0.50 - 0.90 mg /dL [facility] GFR >60 >60 mL/min [facility] GFR Non- >60 >60 mL/min [facility] Glucose [Mass/Vol] 97 mg/dL 70 - 99 mg/dL [facility] [employer] Interpretation and review of laboratory results Abnormal [facility] Potassium [Moles/Vol] 3.8 mmol/L 3.7 - 5.3 mmol /L [facility] Sodium [Moles/Vol] 134 mmol/L Low 135 - 144 mmol/L [facility] [employer] Urea nitrogen (BldV) [Mass/Vol] 9 mg/dL 6 - 20 mg/dL [facility] [employer] Urea nitrogen/Creatinine (Bl d) [Mass ratio] 11 [facility] [employer] C-Reactive Proteinon 022 CRP [Mass/Vol] mg/L 0.0 - 5.0 mg/L [facility] [employer] CBC with Auto Differentialon 04-16-2021 Absolute Eos # 0.19 [facility] th Absolute Immature Granulocyte 0.03 [facility] Absolute Lymph # 2.01 [facility] alth Absolute [place] # 0.47 [facility] Basophils (Bld) [#/Vol] 0.05 10*3/uL [facility] Basophils/100 WBC (Bld) 1 % 0 - 2 % [facility] Eosinophils/100 WBC (Bld) 2 % 1 - 4 % [facility] Hematocrit (Bld) [Volume fraction] 44.1 % 3 6.3 - 47.1 % [facility] Hemoglobin.gastrointestinal spec 1 Ql (Stl) 14.9 g/dL 11.9 - 15.1 g/dL [facility] Immature granulocytes/100 WBC (Bld) 0 % 0 [facility] Interpretation and review of laboratory results Abnormal [facility] Lymphocytes/100 WBC (Bld) 22 % Low 24 - 43 % [facility] MCH (RBC) [Entitic mass] 29.2 pg 25.2 - 33.5 pg [facility] MCHC (RBC) [Mass/Vol] 33.8 g/dL 28.4 - 34.8 g/ dL [facility] MCV (RBC) [Entitic vol] 86.5 fL 82.6 - 102.9 fL [facility] Monocytes/100 WBC (Bld) 5 % 3 - 12 % [facility] NRBC Automated 0.0 0.0 per 100 WBC [facility] Platelet distribution width (Bld) [Ratio] 11.4 % Low 11.8 - 14.4 % [facility] Platelet mean volume (Bld) [ Entitic vol] 9.5 fL 8.1 - 13.5 fL [facility] Platelets (Bld) [#/Vol] 265 10*3/uL [facility] RBC (Bld) [#/Vol] 5.10 10*6/uL 3.95 - 5.11 m/uL [facility] Segmented neutrophils/100 WBC (Bld) 70 % High 36 - 65 % [facility] Segs Absolute 6.34 [facility] (Bld) [#/Vol] 9.1 10*3/uL [facility] CT ABDOMEN PELVIS WO CONTRAS T Additional Contrast? Noneon 04-16-2021 No renal calculi, hydronephrosis, or hydroureter. Previous appendectomy, no bowel obstruction, and no pneumoperitoneum. There is a 3.6 cm cyst in the left ovary with a simple fluid attenuation. May have a short segment of mild hydrosalpinx on the left side as well. Correlate with physical exam for location of pain. Fatty metamorphosis of the liver. Previous cholecystectomy without biliary dilatation. [facility] RIS CONSOLIDATE D EXAMINATION: CT OF THE ABDOMEN AND PELVIS WITHOUT CONTRAST 04/16/2021 10:42 pm TECHNIQUE: CT of the abdomen and pelvis was performed without the administration of intravenous contrast. Multiplanar reformatted images are provided for review. Dose modulation, iterative reconstruction, and/or weight based adjustment of the mA/kV was utilized to reduce the radiation dose to as low as reasonably achievable. COMPARISON: 12/29/2011. HISTORY: ORDERING SYSTEM PROVIDED HISTORY: r/o stone TECHNOLOGIST PROVIDED HISTORY: r/o stone Decision Support Exception - unselect if not a suspected or confirmed emergency medical condition->Emergency Medical Condition (MA) Is the patient ?->No FINDINGS: Lower Chest: Some scattered atelectatic changes of the lower lungs but no consolidation or pleural effusion. Organs: Lack of IV contrast does reduce evaluation of the organs and vasculature. Fatty metamorphosis is see the liver. There is previous cholecystectomy but the intrahepatic biliary system is not dilated. The spleen is not enlarged. There is no pancreatic calcification, ductal dilatation, or surrounding fluid collection. The adrenal glands are unremarkable. No renal calculi, hydronephrosis, or hydroureter on either side. Ureters are tracked all the way to the urinary bladder without a ureteral calculus. GI/Bowel: The stomach, small bowel, and colon are not dilated. Surgical changes in the right lower quadrant suggest prior appendectomy. There is no sign of focal colonic diverticulitis. There is no ascites or pneumoperitoneum. Small fat containing umbilical hernia is noted without complication. Pelvis: The urinary bladder wall is not thickened and no calculus or debris within the lumen. Previous hysterectomy has been performed. There is a 3.6 cm cyst in the left ovary with a simple fluid attenuation. May also have a short segment of mild hydrosalpinx on the left side. There is no significant free fluid within the pelvis.. Peritoneum/Retroperitoneum: No abdominal aortic aneurysm, retroperitoneal hematoma, or bulky lymphadenopathy. Bones/Soft Tissues: There are degenerative changes in the lumbosacral facets and at the sacroiliac joints. [facility] CONSOLIDATE D iMchael Frausto - 04/16 EXAMINATION: CT OF THE ABDOMEN AND PELVIS WITHOUT CONTRAST 04/16/2021 10:42 pm TECHNIQUE: CT of the abdomen and pelvis was performed without the administration of intravenous contrast. Multiplanar reformatted images are provided for review. Dose modulation, iterative reconstruction, and/or weight based adjustment of the mA/kV was utilized to reduce the radiation dose to as low as reasonably achievable. COMPARISON: 12/29/2011. HISTORY: ORDERING SYSTEM PROVIDED HISTORY: r/o stone TECHNOLOGIST PROVIDED HISTORY: r/o stone Decision Support Exception - unselect if not a suspected or confirmed emergency medical condition->Emergency Medical Condition (MA) Is the patient ?->No FINDINGS: Lower Chest: Some scattered atelectatic changes of the lower lungs but no consolidation or pleural effusion. Organs: Lack of IV contrast does reduce evaluation of the organs and vasculature. Fatty metamorphosis is see the liver. There is previous cholecystectomy but the intrahepatic biliary system is not dilated. The spleen is not enlarged. There is no pancreatic calcification, ductal dilatation, or surrounding fluid collection. The adrenal glands are unremarkable. No renal calculi, hydronephrosis, or hydroureter on either side. Ureters are tracked all the way to the urinary bladder without a ureteral calculus. GI/Bowel: The stomach, small bowel, and colon are not dilated. Surgical changes in the right lower quadrant suggest prior appendectomy. There is no sign of focal colonic diverticulitis. There is no ascites or pneumoperitoneum. Small fat containing umbilical hernia is noted without complication. Pelvis: The urinary bladder wall is not thickened and no calculus or debris within the lumen. Previous hysterectomy has been performed. There is a 3.6 cm cyst in the left ovary with a simple fluid attenuation. May also have a short segment of mild hydrosalpinx on the left side. There is no significant free fluid within the pelvis.. Peritoneum/Retroperitoneum: No abdominal aortic aneurysm, retroperitoneal hematoma, or bulky lymphadenopathy. Bones/Soft Tissues: There are degenerative changes in the lumbosacral facets and at the sacroiliac joints. IMPRESSION: No renal calculi, hydronephrosis, or hydroureter. Previous appendectomy, no bowel obstruction, and no pneumoperitoneum. There is a 3.6 cm cyst in the left ovary with a simple fluid attenuation. May have a short segment of mild hydrosalpinx on the left side as well. Correlate with physical exam for location of pain. Fatty metamorphosis of the liver. Previous cholecystectomy without biliary dilatation. [facility] Work Phone: Radiology Study observation (narrative) [place] [facility] Work Phone: CT ABDOMEN PELVIS WO CONTRAS T Additional Contrast? NoneOrdered By: Michael Frausto on 04-16-2021 [employer] Work Phone: D-Dimer, Quantitativeon 04-05 D-Dimer, Quant 0.37 [facility] Comment on above: When combined with a low clinical probability, a D dimer value of <0.50 mg/L FEU is considered negative for DVT and PE (negative predictive value of 98%, sensitivity of 97%). If this test is not being used to help rule out DVT and PE, then the following reference range should be utilized: 0.00 - 0.59 mg/L FEU. The D-Dimer assay is intended for use as an aid in the diagnosis of venous thromboembolism (DVT and PE) and the results should be interpreted in conjunction with the patient's medical history, clinical presentation, and other findings. Elevated levels of D-dimer activity can be seen in any state of coagulation activation and is not recommended in patients with therapeutic dose anticoagulant therapy for >24 hours, fibrinolytic therapy within the previous 7 days, trauma or surgery within the previous 4 weeks, disseminated malignancies, aortic aneurysm, sepsis, severe infections, pneumonia, severe skin infections, liver cirrhosis, advanced age, coronary disease, diabetes, and . A very low percentage of patients with DVT may yield D-dimer results below the cutoff of 0.5 mg/L FEU. This is known to be more prevalent in patients with distal DVT. [facility] Hepatic Function Panelon Albumin [Mass/Vol] 4.7 g/dL 3.5 - 5.2 g/dL [facility] [employer] Albumin/Globulin [Mass ratio] 1.8 {ratio} [facility] ALP (Bld) [Catalytic activity/Vol] 73 U/L 35 - 104 U/L [facility] ALT [Catalytic activity/Vol] 24 U/L 5 - 33 U/L [facility] [employer] AST [Catalytic activity/Vol] 14 U/L <32 [facility] Bilirubin [Mass/Vol] 0.35 mg/dL 0.3 - 1.2 mg/dL [facility] Bilirubin, Indirect Can not be calculated 0.00 - 1.00 mg/dL [facility] Bilirubin.indirect [Mass/Vol] mg/dL <0.31 mg/dL [facility] Free PSA/Total PSA [Mass fraction] 7.3 g/dL 6.4 - 8.3 g/dL [facility] Laboratory - Chemistry and C hemistry - challengeon 04-16-2021 GFR/1.73 sq M.predicted MDRD (S/P/Bld) [Vol rate/Area] [facility] Comment on above: Average GFR for 30-3 9 years old: 107 mL/min/1.73sq m Chronic Kidney Disease: <60 mL/min/1.73sq m Kidney failure: <15 mL/min/1.73sq m eGFR calculated using average adult body mass. Additional eGFR calculator available at: http://www.MobiTV/Stevia First_crcl_2011.htm Stage 1: Some kidney damage normal GFR Stage 2: Mild kidney damage GFR 60-89 Stage 3: Moderate kidney damage GFR 30-59 Stage 4: Severe kidney damage GFR 15-29 Stage 5: Severe kidney damage GFR <15 ESRD - chronic treatment by dialysis or transplant Lipaseon 04-16-2021 Lipase [Catalytic activity/Vol] 29 U/L 13 - 60 U/L [facility] Microscopic Urinalysison - [facility] Bacteria, UA 2+ Abnormal None [facility] Epithelial Cells UA 2 TO 5 [facility] Interpretation and review of laboratory results Abnormal [facility] RBC, UA 0 TO 2 [facility] WBC, UA [address] [facility] No Panel Informationon 04-16 [facility] , Urineon 2 Beta HCG ( test) Ql (U) Negative NEG ATIVE [facility] Comment on above: Specimens with hCG l evels near the threshold of the test (25 mIU/mL) may give a negative or indeterminate result. In such cases, another test should be performed with a new specimen in 48-72 hours. If early is suspected clinically in this setting, correlation with quantitative serum b-hCG level is suggested. [facility] has confirmed the use of plasma for this test. This has not been cleared or approved by the U.S. Food and Drug Administration. The FDA has determined that such clearance is not necessary. Definition 6 [employer] Sedimentation Rateon 022 Sed Rate 13 mm 0 - [address] [facility] Troponinon 04-16-2021 Troponin, High Sensitivity <6 0 - 14 ng /L [facility] Comment on above: High Sensitivity Troponin values cannot be compared with other Troponin methodologies. Patients with high levels of Biotin oral intake (i.e >5mg/day) may have falsely decreased Troponin levels. Samples collected within 8 hours of biotin intake may require additional information for diagnosis. Definition 6 [employer] Urinalysis with Reflex to Cu ltureon 04-16-2021 Bilirubin Urine Negative NEGATIVE Definition 6[facility] Color, UA Yellow Yellow [facility] Glucose, Ur Negative NEGATIVE Definition 6[facility] Interpretation and review of laboratory results Abnormal Definition 6[facility] Ketones Ql (U) Negative NEGATIVE [facility] Leukocyte esterase Test strip Ql (U) TRACE Abnormal NEGATIVE Definition 6[facility] Nitrite, Urine Negative NEGATIVE [facility] pH, UA 6.0 [facility] Protein, UA Negative NEGATIVE Definition 6[facility] Specific [place], UA 1.015 [employer] [facility] Turbidity UA Clear Clear [facility] Urine Hgb Negative NEGATIVE Definition 6 [employer] Urobilinogen, Urine Normal Normal [facility] XR CHEST 1 VIEWon 04-16-2021 Clear lungs. No acut e cardiopulmonary abnormality. [facility] RIS CONSOLIDATE D EXAMINATION: ONE XRAY VIEW OF THE CHEST 04/16/2021 7:55 pm COMPARISON: November 01, 2020. HISTORY: ORDERING SYSTEM PROVIDED HISTORY: chest pain TECHNOLOGIST PROVIDED HISTORY: chest pain FINDINGS: A portable upright frontal view chest radiograph was obtained. The heart size, mediastinal contour, and pleural spaces are within normal limits. The lungs are grossly clear. There is no focal consolidation or pneumothorax. The pulmonary vascular pattern is within normal limits. No significant thoracic osseous abnormality. [facility] RIS CONSOLIDATE D Christy Becerra MD - 04/16/2021 EXAMINATION: ONE XRAY VIEW OF THE CHEST 04/16/2021 7:55 pm COMPARISON: November 01, 2020. HISTORY: ORDERING SYSTEM PROVIDED HISTORY: chest pain TECHNOLOGIST PROVIDED HISTORY: chest pain FINDINGS: A portable upright frontal view chest radiograph was obtained. The heart size, mediastinal contour, and pleural spaces are within normal limits. The lungs are grossly clear. There is no focal consolidation or pneumothorax. The pulmonary vascular pattern is within normal limits. No significant thoracic osseous abnormality. IMPRESSION: Clear lungs. No acute cardiopulmonary abnormality. [employer] Phone: Radiology Study observation (narrative) [facility] Phone: XR CHEST 1 VIEWOrdered By: Arsenio Becerra on 04-16-2021 [employer] Phone: PULMONARY FUNCTION ([phone])on 0 03-07-2021 PULMONARY FUNCTION (450) [place] [id number] PULMONARY FUNCTION PATIENT NAME: LEANA TRAN : 1985 MED REC NO: [id number] ROOM: ACCOUNT NO: [id number] ADMIT DATE: 03/07/2021 PROVIDER: Moris Alvarado DATE OF PROCEDURE: 03/07/2021 PULMONARY FUNCTION TESTS WITH BRONCHODILATOR AND DLCO ATTENDING PROVIDER: Nabor Yancey CNP PRIMARY CARE PROVIDER: Cas Dowell MD REASON FOR TEST: Moderate asthma. SUMMARY: 1. The respiratory therapist reports the patient's effort as being good, but requiring a lot of coaching throughout the study. 2. The forced vital capacity is at 92% of predicted. 3. The forced exhaled volume in 1 second is at 87% of predicted. 4. The forced exhaled volume in 1 second/forced vital capacity is at 94% of predicted. 5. The forced exhaled flow at 25-75% is decreased at 73% of predicted. 6. A 23% improvement was seen in the forced exhaled flow at 25-75% after one-time dose of bronchodilator without a significant improvement in the forced vital capacity or forced exhaled volume in 1 second. 7. The MVV is decreased at 53% of predicted. 8. The total lung capacity is normal at 92% of predicted. 9. The DLCO is decreased at 65% of predicted, the DLCO/VA is normal at 79% of predicted. IMPRESSION: 1. Relatively normal prebronchodilator pulmonary function tests. A significant improvement was seen only in the forced exhaled flow at 25-75% to suggest possible reversible small airway disease (asthma), please correlate clinically. 2. A decreased MVV suggests respiratory muscle weakness. 3. The DLCO is decreased at 65% of predicted whereas the DLCO/VA is normal at 79% of predicted. MORIS ALVARADO [id number] Doc#: [id number] CC: Normal [id number] 03-07-2021 SARS-CoV-2 (COVID-19) RNA NA A+probe Ql (Unsp spec) Not detected Normal NOTDET [facility] Comment on above: Result Comment: Rapid NAAT: The specimen is NEGATIVE for SARS-CoV-2, the novel coronavirus associated with COVID-19. The ID NOW COVID-19 assay is designed to detect the virus that causes COVID-19 in patients with signs and symptoms of infection who are suspected of COVID-19. An individual without symptoms of COVID-19 and who is not shedding SARS-CoV-2 virus would expect to have a negative (not detected) result in this assay. Negative results should be treated as presumptive and, if inconsistent with clinical signs and symptoms or necessary for patient management, should be tested with an alternative molecular assay. Negative results do not preclude SARS-CoV-2 infection and should not be used as the sole basis for patient management decisions. Fact sheet for Healthcare Providers: https://www.fda.gov/media/343442/download Fact sheet for Patients: https://www.fda.gov/media/515643/download Methodology: Isothermal Nucleic Acid Amplification Performed By: #### C OVRB #### [facility] [address] [place] [address] Probate Judge: Belén Dale MD Basic Metabolic Panel w/ Ref douglas to MGOrdered By: Araseli Barrett on 11-01-2020 Anion gap [Moles/Vol] 19 mmol/L High 9 - 17 mmol/L [facility] [employer] Phone: Calcium [Mass/Vol] 9.4 mg/dL 8.6 - 10.4 mg/dL [facility]: Chloride [Moles/Vol] 94 mmol/L Low 98 - 107 mmol/L [facility] Work Phone: CO2 [Moles/Vol] 20 mmol/L 20 - 31 mmol/L [facility] Work Phone: Creatinine [Mass/Vol] 1.2 mg/dL High 0.50 - 0.90 mg /dL [facility] Work Phone: GFR >60 >60 mL/min [facility] Work Phone: GFR Non- 51 mL/min Low >60 [facility] Work Phone: Glucose [Mass/Vol] 217 mg/dL High 70 - 99 mg/dL [facility] Work Phone: Interpretation and review of laboratory results Abnormal [facility] Work Phone: Potassium [Moles/Vol] 3.5 mmol/L Low 3.7 - 5.3 mmol /L [facility] Work Phone: Sodium [Moles/Vol] 133 mmol/L Low 135 - 144 mmol/L [facility] Work Phone: Urea nitrogen (BldV) [Mass/Vol] 10 mg/dL 6 - 20 mg/dL [facility] Work Phone: Urea nitrogen/Creatinine (Bld) [Mass ratio] 8 Low [facility] Work Phone: [facility] Work Phone: CBC Auto DifferentialOrdered By: Araseli Barrett on 11-01-2020 Absolute Eos # <0.03 [facility] Work Phone: Absolute Immature Granulocyte 0.33 High [facility] Work Phone: Absolute Lymph # 0.80 Low [facility] Work Phone: Absolute [place] # 0.42 [facility] Work Phone: Basophils (Bld) [#/Vol] 10*3/uL [facility] [email or web address] Phone: Basophils/100 WBC (Bld) 0 % 0 - 2 % M [email or web address] Phone: Differential Type NOT REPORTED [employer] Phone: Eosinophils/100 WBC (Bld) 0 % Low 1 - 4 % [employer] Phone: Hematocrit (Bld) [Volume fraction] 42.8 % 36.3 - 47.1 % [employer] Phone: Hemoglobin.gastrointestina l spec 1 Ql (Stl) 14.7 g/dL 11.9 - 15.1 g/dL [employer] Phone: Immature granulocytes/100 WBC (Bld) 4 % High 0 [employer] Phone: Interpretation and review of laboratory results Abnormal [employer] Work Phone: Lymphocytes/100 WBC (Bld) 9 % Low 24 - 43 % [employer] Phone: MCH (RBC) [Entitic mass] 30.1 pg 25.2 - 33.5 pg [employer] Phone: MCHC (RBC) [Mass/Vol] 34.3 g/dL 28.4 - 34.8 g/dL [employer] Phone: MCV (RBC) [Entitic vol] 87.5 fL 82.6 - 102.9 fL [employer] Phone: Monocytes/100 WBC (Bld) 5 % 3 - 12 % [facility] [email or web address] Phone: NRBC Automated 0.0 0.0 per 100 WBC [employer] Phone: Platelet distribution width (Bld) [Ratio] 11.4 % Low 11.8 - 14.4 % [employer] Phone: Platelet Estimate NOT REPORTED [employer] Phone: Platelet mean volume (Bld) [Entitic vol] 9.4 fL 8.1 - 13.5 fL [employer] Phone: Platelets (Bld) [#/Vol] 207 10*3/uL [employer] Phone: RBC (Bld) [#/Vol] 4.89 10*6/uL 3.95 - 5.1 1 m/uL [employer] Work Phone: RBC (Bld) [#/Vol] NOT REPORTED [employer] Phone: Segmented neutrophils/100 WBC (Bld) 82 % High 36 - 65 % [employer] Phone: Segs Absolute 7.82 [employer] Work Phone: WBC (Bld) [#/Vol] 9.4 10*3/uL [employer] Phone: WBC (Bld) [#/Vol] NOT REPORTED [employer] Phone: [employer] Phone: D-Dimer, QuantitativeOrdered By: Araseli Barrett on 11-01-2020 D-Dimer, Quant <0.27 [employer] Phone: Comment on above: When combined with a low clinical probability, a D dimer value of <0.50 mg/L FEU is considered negative for DVT and PE (negative predictive value of 98%, sensitivity of 97%). If this test is not being used to help rule out DVT and PE, then the following reference range should be utilized: 0.00 - 0.59 mg/L FEU. The D-Dimer assay is intended for use as an aid in the diagnosis of venous thromboembolism (DVT and PE) and the results should be interpreted in conjunction with the patient's medical history, clinical presentation, and other findings. Elevated levels of D-dimer activity can be seen in any state of coagulation activation and is not recommended in patients with therapeutic dose anticoagulant therapy for >24 hours, fibrinolytic therapy within the previous 7 days, trauma or surgery within the previous 4 weeks, disseminated malignancies, aortic aneurysm, sepsis, severe infections, pneumonia, severe skin infections, liver cirrhosis, advanced age, coronary disease, diabetes, and . A very low percentage of patients with DVT may yield D-dimer results below the cutoff of 0.5 mg/L FEU. This is known to be more prevalent in patients with distal DVT. [employer] Phone: Laboratory - Chemistry and C hemistry - challengeOrdered By: Araseli Barrett on 11-01-2020 GFR/1.73 sq M.predicted MDRD (S/P/Bld) [Vol rate/Area] [employer] Phone: Comment on above: Average GFR for 30-3 9 years old: 107 mL/min/1.73sq m Chronic Kidney Disease: <60 mL/min/1.73sq m Kidney failure: <15 mL/min/1.73sq m eGFR calculated using average adult body mass. Additional eGFR calculator available at: http://www.[employer]/Stevia First_crcl_2012.htm Stage 1: Some kidney damage normal GFR Stage 2: Mild kidney damage GFR 60-89 Stage 3: Moderate kidney damage GFR 30-59 Stage 4: Severe kidney damage GFR 15-29 Stage 5: Severe kidney damage GFR <15 ESRD - chronic treatment by dialysis or transplant MagnesiumOrdered By: Araseli Barrett on 11-01-2020 Magnesium [Mass/Vol] 1.6 mg/dL 1.6 - 2.6 mg/dL [employer] Phone: [employer] Phone: TroponinOrdered By: Araseli Barrett on 11-01-2020 Troponin Interp NOT REPORTED [facility] Work Phone: Troponin T NOT REPORTED <0.03 ng/mL Consulted [facility] [employer] Work Phone: Troponin, High Sensitivity <6 0 - 14 ng /L [employer] Phone: Comment on above: High Sensitivity Troponin values cannot be compared with other Troponin methodologies. Patients with high levels of Biotin oral intake (i.e >5mg/day) may have falsely decreased Troponin levels. Samples collected within 8 hours of biotin intake may require additional information for diagnosis. [employer] Phone: XR CHEST PORTABLEOrdered By: Araseli Barrett on 11-01-2020 Negative chest. Definition 6silvio Jeeves [facility] Work Phone: EXAMINATION: ONE XRA Y VIEW OF THE CHEST 11/01/2020 2:31 pm COMPARISON: 12/08/2014 HISTORY: ORDERING SYSTEM PROVIDED HISTORY: cough FINDINGS: The lungs are without acute focal process. No effusion or pneumothorax. The cardiomediastinal silhouette is normal. The osseous structures are intact without acute process. [employer] Phone: Oswaldo, pn Incoming R adiant Results From [employer] - 11/01/2020 2:41 PM EDT EXAMINATION: ONE XRAY VIEW OF THE CHEST 11/01/2020 2:31 pm COMPARISON: 12/08/2014 HISTORY: ORDERING SYSTEM PROVIDED HISTORY: cough FINDINGS: The lungs are without acute focal process. No effusion or pneumothorax. The cardiomediastinal silhouette is normal. The osseous structures are intact without acute process. IMPRESSION: Negative chest. [employer] Phone: [employer] Phone: [facility] 09-15-2020 [place] Telephone (NEADFV) LEANA TRAN ([id number]) 1985 F Date Time Provider Department 09/15/20 LIS MORAESFV During your visit today, we recorded the following information about you: Demi Hazel [facility] 09/15/2020 4:44 PM Signed Received MRI Brain report by fax from [facility]. Scanned to patient's chart. Savanna Juarez RN 09/16/2020 4:37 PM Signed Scan on 09/15/2020 ?3:48 PM by External Provider: MRI Allergies As of Date: 09/15/2020 Noted Allergy Reaction IV CONTRAST (CONTRAST DYE) 02/23/2014 10 - Anaphylaxis ALEVE (NAPROXEN) 09/06/2020 7 - Swelling ASPIRIN 02/23/2014 16 - Unknown CECLOR (CEFACLOR) 09/06/2020 10 - Anaphylaxis CEFTIN (CEFUROXIME AXETIL) 02/23/2014 16 - Unknown CLINDAMYCIN 02/23/2014 7 - Swelling 12 - Shortness of Breath ERYTHROMYCIN 02/23/2014 7 - Swelling 12 - Shortness of Breath LATEX 02/23/2014 7 - Swelling 9 - Itching Comments: Skin cracks and bleeds LAVENDER (LAVANDULA ANGUSTIFOLIA) 09/06/2020 10 - Anaphylaxis PENICILLINS 02/23/2014 2 - Rash 9 - Itching SULFA (SULFONAMIDE ANTIBIOTICS) 05/18/2015 7 - Swelling 12 - Shortness of Breath Date Reviewed: 06/08/2016 Reviewed by: Silvana Hess Ma - Fully Assessed Reason for Visit: Received Outside Medical Records [[id number]] Prescriptions as of 11/17/2020 - zonisamide (ZONEGRAN) 100 mg capsule Take 1 capsule by mouth once daily. - rimegepant (NURTEC ODT) 75 mg disintegrating tablet Take 1 tablet by mouth once daily as needed. - EPINEPHrine 0.1 mg/0.1 mL AutoInjector Inject as directed - REXULTI 1 mg tablet Take 1 mg by mouth once daily. - budesonide-formoterol (SYMBICORT) 160-4.5 mcg/actuation inhaler Inhale 2 Puffs as instructed. - cyclobenzaprine (FLEXERIL) 10 mg tablet cyclobenzaprine 10 mg tablet - estradiol (CLIMARA) 0.05 mg/24 hr APPLY 1 PATCH TOPICALLY TO THE SKIN ONCE PER WEEK - famotidine (PEPCID) 40 mg tablet Take 40 mg by mouth twice daily. - furosemide (LASIX) 40 mg tablet Take 40 mg by mouth. - keTORolac (TORADOL) 10 mg tablet TAKE 1 TABLET BY MOUTH FOUR TIMES A DAY NEEDED - lamoTRIgine (LAMICTAL) 150 mg tablet Take 150 mg by mouth. - lidocaine (LIDODERM) 5 % PLACE 1 PATCH TOPICALLY ON THE SKIN DAILY FOR 10 DAYS. LEAVE ON 12 HOURS, THEN LEAVE OFF 12 HOURS. - metFORMIN (GLUCOPHAGE) 500 mg tablet Take 500 mg by mouth. - ondansetron orally disintegrating (ZOFRAN ODT) 4 mg disintegrating tablet ondansetron 4 mg disintegrating tablet - traZODone (DESYREL) 100 mg tablet Take 100 mg by mouth. - diphenhydrAMINE (BENADRYL) 50 mg capsule Take 50 mg by mouth. - sertraline (ZOLOFT) 100 mg tablet Take 200 mg by mouth. - Cetirizine (ZYRTEC) 10 mg cap Take by mouth. - spironolactone (ALDACTONE) 50 mg tablet Take 50 mg by mouth once daily. - levothyroxine (SYNTHROID) 112 mcg tablet Take 112 mcg by mouth daily before breakfast. - ALBUTEROL INHALATION Inhale as instructed as needed. - montelukast (SINGULAIR) 10 mg tablet Take 10 mg by mouth daily at bedtime. Problem List As Of Date 09/15/2020 Noted Resolved Coagulopathy (HCC) [D68.9] 02/23/2014 Arachnoid cyst of pituitary gland [G93.0] 04/07/2015 Encounter Status:Closed by DEMI JOHNSON on 11/17/20 [facility] 09-06-2020 [facility] Office Visit (NEADFV ) LEANA TRAN ([id number]) 1985 F Date Time Provider Department 09/06/20 2:00 PM LIS MORAES During your visit today, we recorded the following information about you: Temperature Pulse Blood pressure Weight 97.8 degrees 67/minute 112/73 102.1 kg Height 1.626 m Lis Moraes MD 09/06/2020 3:10 PM Signed PROGRESS NOTE- HEADACHE SERVICE DATE: September 06, 2020 Location: [facility] Participants: patient and provider Requesting Provider: self ASSESSMENT: - chronic daily headaches. migrainous and MOH. - occipital neuralgia - right face,arm, leg tingling/sensory loss episodes - pseudopapilledema - small intrasellar arachnoid cyst, pituitary. Not surgical. - right ear decreased hearing RECOMMENDATIONS: 1. Work up for paresthesias: - MRI brain wow contrast, to rule out demyelinating disease. 2. Bilateral occipital nerve block today, see attached procedure note 3. Migraine: - for prevention continue Zonisamide. Can be increased if SUZIE block not effective - abortive, stop use of Tylenol. Imitrex use no more than 10 days a month HPI: This is Ms. Leana Tran, last seen on 03/23/2016, this is a follow up. She says that after I did a bilateral nerve block in 2017, she did very well. Her headaches went down in frequency but most importantly in severity, 10. It was like that for several years. Last year, the pattern worsened. She now is having severe migraines that she treats successfully with Imitrex and moderate ones she treats with Tylenol. A new symptoms which also triggered the follow up is tingling and sensory loss. She says tingling mostly, maybe decreased sensation. Arm and leg, face every 3 days, last a few hrs to days. No trigger. Headache Description: see note from 03/23/2016 Prior Treatments: Chiropractor. Diamox helped. Topiramate for 2 months has not helped. Fioricet Sumatriptan 100 mg Maxalt 10 mg partial to no help. Lamictal for depression Toradol- for head pain, by PCP Current Medication review: 1. Imitrex- helps 2. Zonisamide 25 mg- has decreased total number of headache days by a few 3. Tylenol- 2-3 days a week Current Outpatient Medications Medication Sig - EPINEPHrine 0.1 mg/0.1 mL AutoInjector Inject as directed - REXULTI 1 mg tablet Take 1 mg by mouth once daily. - budesonide-formoterol (SYMBICORT) 160-4.5 mcg/actuation inhaler Inhale 2 Puffs as instructed. - cyclobenzaprine (FLEXERIL) 10 mg tablet cyclobenzaprine 10 mg tablet - estradiol (CLIMARA) 0.05 mg/24 hr APPLY 1 PATCH TOPICALLY TO THE SKIN ONCE PER WEEK - famotidine (PEPCID) 40 mg tablet Take 40 mg by mouth twice daily. - furosemide (LASIX) 40 mg tablet Take 40 mg by mouth. - keTORolac (TORADOL) 10 mg tablet TAKE 1 TABLET BY MOUTH FOUR TIMES A DAY NEEDED - lamoTRIgine (LAMICTAL) 150 mg tablet Take 150 mg by mouth. - lidocaine (LIDODERM) 5 % PLACE 1 PATCH TOPICALLY ON THE SKIN DAILY FOR 10 DAYS. LEAVE ON 12 HOURS, THEN LEAVE OFF 12 HOURS. - metFORMIN (GLUCOPHAGE) 500 mg tablet Take 500 mg by mouth. - ondansetron orally disintegrating (ZOFRAN ODT) 4 mg disintegrating tablet ondansetron 4 mg disintegrating tablet - SUMAtriptan (IMITREX) 100 mg tablet TAKE 1 TABLET BY MOUTH NEEDED AT ONSET OF HEADACHE. MAY REPEAT DOSE ONCE IN 2 HOURS IF NEEDED - traZODone (DESYREL) 100 mg tablet Take 100 mg by mouth. - zonisamide (ZONEGRAN) 25 mg capsule Take 50 mg by mouth. - diphenhydrAMINE (BENADRYL) 50 mg capsule Take 50 mg by mouth. - sertraline (ZOLOFT) 100 mg tablet Take 200 mg by mouth. - Cetirizine (ZYRTEC) 10 mg cap Take by mouth. - spironolactone (ALDACTONE) 50 mg tablet Take 50 mg by mouth once daily. - levothyroxine (SYNTHROID) 112 mcg tablet Take 112 mcg by mouth daily before breakfast. - ALBUTEROL INHALATION Inhale as instructed as needed. - montelukast (SINGULAIR) 10 mg tablet Take 10 mg by mouth daily at bedtime. No current facility-administered medications for this visit. PAST MEDICAL HISTORY Diagnosis Date - Arachnoid cyst of pituitary gland - Asthma - Cholelithiases - GERD (gastroesophageal reflux disease) - Hypercoagulable state (HCC) - Hypothyroid - Protein deficiency (HCC) - Pseudopapilledema of both optic discs PAST SURGICAL HISTORY Procedure Laterality Date - TUBAL LIGATION HX Social History Tobacco Use - Smoking status: Never Smoker - Smokeless tobacco: Never Used Substance Use Topics - Alcohol use: Yes Comment: rarely uses alcohol - Drug use: Not on file FAMILY HISTORY Problem Relation Age of Onset - No Ocular Disease Other Migraine or other headaches in the family: No Aneurysms in a first degree relative: No Brain tumors in the family: Mother has pituitary tumor Other neurological illness in the family: No ALLERGIES Allergen Reactions - Iv Contrast [Con (more content not included)... Normal [facility] Vital Signs Date Time Vital Sign Value Performing Clinician Facility 10-02-2022 09:29-0400 Body height 162.6 cm Fuentes Amaral MD Work Phone: [facility] 10-02-2022 09:29-0400 Body temperature 97.7 [degF] Fuentes Amaral MD Work Phone: [facility] 10-02-2022 09:29-0400 Body weight 100.15 kg Fuentes Amaral MD Work Phone: [facility] 10-02-2022 09:29-0400 Diastolic blood pressure 79 mm[Hg] Fuentes Amaral MD Work Phone: [facility] 10-02-2022 09:29-0400 Heart rate 58 /min Fuentes Amaral MD Work Phone: [facility] 10-02-2022 09:29-0400 Respiratory rate 16 /min Fuentes Amaral MD Work Phone: [facility] 10-02-2022 09:29-0400 SaO2% (BldA) [Mass fraction] 99 % Fuentes Amaral MD Work Phone: [facility] 10-02-2022 09:29-0400 Systolic blood pressure 140 mm[Hg] Fuentes Amaral MD Work Phone: [facility] 09-05-2022 08:23-0400 Blood Pressure Location LORAINE RUBALCAVA [facility] 09-05-2022 08:23-0400 Diastolic blood pressure 79 mm[Hg] LORAINE RUBALCAVA [facility] 09-05-2022 08:23-0400 Heart rate 60 /min LORAINE RUBALCAVA [facility] 09-05-2022 08:23-0400 Systolic blood pressure 133 mm[Hg] LORAINE RUBALCAVA [facility] 04-03-2022 10:39-0500 Body height 162.6 cm Fuentes Amaral MD Work Phone: [facility] 04-03-2022 10:39-0500 Body temperature 97.9 [degF] Fuentes Amaral MD Work Phone: [facility] 04-03-2022 10:39-0500 Body weight 99.34 kg Fuentes Amaral MD Work Phone: [facility] 04-03-2022 10:39-0500 Diastolic blood pressure 65 mm[Hg] Fuentes Amaral MD Work Phone: [facility] 04-03-2022 10:39-0500 Heart rate 74 /min Fuentes Amaral MD Work Phone: [facility] 04-03-2022 10:39-0500 Respiratory rate 16 /min Fuentes Amaral MD Work Phone: [facility] 04-03-2022 10:39-0500 SaO2% (BldA) [Mass fraction] 98 % Fuentes Amaral MD Work Phone: [facility] 04-03-2022 10:39-0500 Systolic blood pressure 147 mm[Hg] Fuentes Amaral MD Work Phone: [facility] 02-28-2022 08:30-0500 Blood Pressure Location LORAINE RUBALCAVA [facility] 02-28-2022 08:30-0500 Diastolic blood pressure 83 mm[Hg] LORAINE RUBALCAVA [facility] 02-28-2022 08:30-0500 Heart rate 74 /min LORAINE RUBALCAVA [facility] 02-28-2022 08:30-0500 Respiratory rate 16 /min LORAINE RUBALCAVA [facility] 02-28-2022 08:30-0500 Systolic blood pressure 121 mm[Hg] LORAINE RUBALCAVA [facility] 02-10-2022 14:07-0500 Body height 162.6 cm Fuentes Amaral MD Work Phone: [facility] 02-10-2022 14:07-0500 Body temperature 97.9 [degF] Fuentes Amaral MD Work Phone: [facility] 02-10-2022 14:07-0500 Body weight 98.25 kg Fuentes Amaral MD Work Phone: [facility] 02-10-2022 14:07-0500 Diastolic blood pressure 59 mm[Hg] Fuentes Amaral MD Work Phone: [facility] 02-10-2022 14:07-0500 Heart rate 97 /min Fuentes Amaral MD Work Phone: [facility] 02-10-2022 14:07-0500 Respiratory rate 16 /min Fuentes Amaral MD Work Phone: [facility] 02-10-2022 14:07-0500 SaO2% (BldA) [Mass fraction] 99 % Fuentes Amaral MD Work Phone: [facility] 02-10-2022 14:07-0500 Systolic blood pressure 124 mm[Hg] Fuentes Amaral MD Work Phone: [facility] 2021 08:48-0500 Blood Pressure Location LORAINE TEJ [facility] 2021 08:48-0500 Diastolic blood pressure 77 mm[Hg] LORAINE RUBALCAVA [facility] 2021 08:48-0500 Heart rate 81 /min LORAINE RUBALCAVA [facility] 2021 08:48-0500 Systolic blood pressure 118 mm[Hg] LORAINE RUBALCAVA [facility] 11-18-2021 13:44-0400 Body height 162.6 cm Fuentes Amaral MD Work Phone: [facility] 11-18-2021 13:44-0400 Body temperature 97.81 [degF] Fuentes Amaral MD Work Phone: [facility] 11-18-2021 13:44-0400 Body weight 101.24 kg Fuentes Amaral MD Work Phone: [facility] 11-18-2021 13:44-0400 Diastolic blood pressure 73 mm[Hg] Fuentes Amaral MD Work Phone: [facility] 11-18-2021 13:44-0400 Heart rate 66 /min Fuentes Amaral MD Work Phone: [facility] 11-18-2021 13:44-0400 Respiratory rate 16 /min Fuentes Amaarl MD Work Phone: [facility] 11-18-2021 13:44-0400 SaO2% (BldA) [Mass fraction] 100 % Fuentes Amaral MD Work Phone: [facility] 11-18-2021 13:44-0400 Systolic blood pressure 121 mm[Hg] Fuentes Amaral MD Work Phone: [facility] 11-03-2021 10:37-0400 Body height 162.6 cm Fuentes Amaral MD Work Phone: [facility] 11-03-2021 10:37-0400 Body temperature 97.59 [degF] Fuentes Amaral MD Work Phone: [facility] 11-03-2021 10:37-0400 Body weight 99.97 kg Fuentes Amaral MD Work Phone: [facility] 11-03-2021 10:37-0400 Diastolic blood pressure 63 mm[Hg] Fuentes Amaral MD Work Phone: [facility] 11-03-2021 10:37-0400 Heart rate 59 /min Fuentes Amaral MD Work Phone: [facility] 11-03-2021 10:37-0400 Respiratory rate 16 /min Fuentes Amaral MD Work Phone: [facility] 11-03-2021 10:37-0400 SaO2% (BldA) [Mass fraction] 99 % Fuentes Amaral MD Work Phone: [facility] 11-03-2021 10:37-0400 Systolic blood pressure 120 mm[Hg] Fuentes Amaral MD Work Phone: [facility] 09-27-2021 08:00-0400 Body height 162.6 cm Pulm Ruskin Work Phone: [facility] 09-27-2021 08:00-0400 Body weight 99.79 kg Pulm [place] Work Phone: [facility] 09-21-2021 15:37-0400 Body height 160 cm Ruth Villaseñor MD Work Phone: [facility] 09-21-2021 15:37-0400 Body temperature 97.5 [degF] Ruth Villaseñor MD Work Phone: [facility] 09-21-2021 15:37-0400 Body weight 100.61 kg Ruth Villaseñor MD Work Phone: [facility] 09-21-2021 15:37-0400 Diastolic blood pressure 72 mm[Hg] Ruth Villaseñor MD Work Phone: [facility] 09-21-2021 15:37-0400 Heart rate 72 /min Ruth Villaseñor MD Work Phone: [facility] 09-21-2021 15:37-0400 SaO2% (BldA) [Mass fraction] 97 % Ruth Villaseñor MD Work Phone: [facility] 09-21-2021 15:37-0400 Systolic blood pressure 131 mm[Hg] Ruth Villaseñor MD Work Phone: [facility] 09-19-2021 13:59-0400 Body temperature 98.29 [degF] Landen Timoteo VENEER GRADER.FACILITY MANAGER Work Phone: [facility] 09-19-2021 13:59-0400 Body weight 99.79 kg Landen Clark VENEER GRADER.FACILITY MANAGER Work Phone: [facility] 09-19-2021 13:59-0400 Diastolic blood pressure 53 mm[Hg] Landen Timoteo VENEER GRADER.FACILITY MANAGER Work Phone: [facility] 09-19-2021 13:59-0400 Heart rate 70 /min Landen Timoteo VENEER GRADER.FACILITY MANAGER Work Phone: [facility] 09-19-2021 13:59-0400 Respiratory rate 18 /min Landen Timoteo VENEER GRADER.FACILITY MANAGER Work Phone: [facility] 09-19-2021 13:59-0400 SaO2% (BldA) [Mass fraction] 98 % Landen Clark VENEER GRADER.FACILITY MANAGER Work Phone: [facility] 09-19-2021 13:59-0400 Systolic blood pressure 128 mm[Hg] Landen Timoteo VENEER GRADER.FACILITY MANAGER Work Phone: [facility] 09-05-2021 15:55-0400 Diastolic blood pressure 50 mm[Hg] Christine Perezbal DO Work Phone: [employer] 09-05-2021 15:55-0400 Heart rate 103 /min Christine Perezbal DO Work Phone: [facility] [employer] 09-05-2021 15:55-0400 Respiratory rate 28 /min Christine Perezbal DO Work Phone: [facility] [employer] 09-05-2021 15:55-0400 SaO2% (BldA) [Mass fraction] 96 % Christine Abraham DO Work Phone: [facility] [employer] 09-05-2021 15:55-0400 Systolic blood pressure 115 mm[Hg] Christine Perezbal DO Work Phone: [facility] [employer] 09-05-2021 13:29-0400 Body height 162.6 cm Christine Perezbal DO Work Phone: [facility] [employer] 09-05-2021 13:29-0400 Body mass index (BMI) [Ratio] 37.25 kg/m2 Christine Perezbal DO Work Phone: [facility] [employer] 09-05-2021 13:29-0400 Body temperature 98.2 [degF] Christine Perezbal DO Work Phone: [facility] [employer] 09-05-2021 13:29-0400 Body weight 98.43 kg Christine Perezbal DO Work Phone: [facility] [employer] 08-15-2021 08:54-0400 Body height 162.6 cm Berlin Avila III, MD Work Phone: [facility] 08-15-2021 08:54-0400 Body weight 98.84 kg Berlin Avila III, MD Work Phone: [facility] 08-12-2021 10:00-0400 Body height 162.6 cm Brewery Cellar Worker Work Phone: [facility] 08-12-2021 10:00-0400 Body weight 98 kg Brewery Cellar Worker Work Phone: [facility] 08-12-2021 10:00-0400 Diastolic blood pressure 72 mm[Hg] Brewery Cellar Worker Work Phone: [facility] 08-12-2021 10:00-0400 Heart rate 79 /min Brewery Cellar Worker Work Phone: [facility] 08-12-2021 10:00-0400 Systolic blood pressure 108 mm[Hg] Brewery Cellar Worker Work Phone: [facility] 07-25-2021 09:30-0400 Body height 162.6 cm Cindy Rushing MD Work Phone: [facility] 07-25-2021 09:30-0400 Body temperature 97.2 [degF] Cindy Rushing MD Work Phone: [facility] 07-25-2021 09:30-0400 Body weight 97.48 kg Cindy Rsuhing MD Work Phone: [facility] 07-25-2021 09:30-0400 Diastolic blood pressure 62 mm[Hg] Cindy Rushing MD Work Phone: [facility] 07-25-2021 09:30-0400 Heart rate 83 /min Cindy Rushing MD Work Phone: [facility] 07-25-2021 09:30-0400 Respiratory rate 14 /min Cindy Rushing MD Work Phone: [facility] 07-25-2021 09:30-0400 SaO2% (BldA) [Mass fraction] 99 % Cindy Rushing MD Work Phone: [facility] 07-25-2021 09:30-0400 Systolic blood pressure 104 mm[Hg] Cindy Rushing MD Work Phone: [facility] 07-22-2021 14:12-0400 Body height 162.6 cm Yan Bass MD Work Phone: [facility] 07-22-2021 14:12-0400 Body temperature 97.5 [degF] Yan Bass MD Work Phone: [facility] 07-22-2021 14:12-0400 Body weight 97.98 kg Yan Bass MD Work Phone: [facility] 07-22-2021 14:12-0400 Diastolic blood pressure 79 mm[Hg] Yan Bass MD Work Phone: [facility] 07-22-2021 14:12-0400 Heart rate 71 /min Yan Bass MD Work Phone: [facility] 07-22-2021 14:12-0400 Respiratory rate 16 /min Yan Bass MD Work Phone: [facility] 07-22-2021 14:12-0400 SaO2% (BldA) [Mass fraction] 97 % Yan Bass MD Work Phone: [facility] 07-22-2021 14:12-0400 Systolic blood pressure 129 mm[Hg] Yan Bass MD Work Phone: [facility] 07-21-2021 13:36-0400 Respiratory rate 20 /min Sai Perez MD Work Phone: [facility] 07-21-2021 13:36-0400 SaO2% (BldA) [Mass fraction] 100 % Sai Perez MD Work Phone: [facility] 07-21-2021 13:29-0400 Diastolic blood pressure 67 mm[Hg] Sai Perez MD Work Phone: [facility] 07-21-2021 13:29-0400 Heart rate 62 /min Sai Perez MD Work Phone: [facility] 07-21-2021 13:29-0400 Systolic blood pressure 130 mm[Hg] Sai Perez MD Work Phone: [facility] 07-14-2021 10:40-0400 Diastolic blood pressure 75 mm[Hg] Aldo Ann MD Work Phone: [facility] 07-14-2021 10:40-0400 Heart rate 74 /min Aldo Ann MD Work Phone: [facility] 07-14-2021 10:40-0400 SaO2% (BldA) [Mass fraction] 98 % Aldo Ann MD Work Phone: [facility] 07-14-2021 10:40-0400 Systolic blood pressure 128 mm[Hg] Aldo Ann MD Work Phone: [facility] 07-06-2021 12:39-0400 Body height 162.6 cm Tracee Mcintyre MD Work Phone: [facility] 07-06-2021 12:39-0400 Body weight 97.52 kg Tracee Mcintyre MD Work Phone: [facility] 07-06-2021 12:39-0400 Diastolic blood pressure 68 mm[Hg] Tracee Mcintyre MD Work Phone: [facility] 07-06-2021 12:39-0400 Heart rate 61 /min Tracee Mcintyre MD Work Phone: [facility] 07-06-2021 12:39-0400 Respiratory rate 16 /min Tracee Mcintyre MD Work Phone: [facility] 07-06-2021 12:39-0400 SaO2% (BldA) [Mass fraction] 99 % Tracee Mcintyre MD Work Phone: [facility] 07-06-2021 12:39-0400 Systolic blood pressure 111 mm[Hg] Tracee Mcintyre MD Work Phone: [facility] 07-01-2021 10:02-0400 Body height 162.6 cm Yan Bass MD Work Phone: [facility] 07-01-2021 10:02-0400 Body temperature 97.59 [degF] Yan Bass MD Work Phone: [facility] 07-01-2021 10:02-0400 Body weight 97.98 kg Yan Bass MD Work Phone: [facility] 07-01-2021 10:02-0400 Diastolic blood pressure 97 mm[Hg] Yan Bass MD Work Phone: [facility] 07-01-2021 10:02-0400 Heart rate 87 /min Yan Bass MD Work Phone: [facility] 07-01-2021 10:02-0400 Respiratory rate 16 /min Yan Bass MD Work Phone: [facility] 07-01-2021 10:02-0400 SaO2% (BldA) [Mass fraction] 99 % Yan Bass MD Work Phone: [facility] 07-01-2021 10:02-0400 Systolic blood pressure 138 mm[Hg] Yan Bass MD Work Phone: [facility] 06-27-2021 11:45-0400 Diastolic blood pressure 70 mm[Hg] Peter Taqueriazzo VENEER GRADER.FACILITY MANAGER Work Phone: [facility] 06-27-2021 11:45-0400 Heart rate 96 /min Peter Guzzo VENEER GRADER.FACILITY MANAGER Work Phone: [facility] 06-27-2021 11:45-0400 Respiratory rate 20 /min Peter Taqueriazzo VENEER GRADER.FACILITY MANAGER Work Phone: [facility] 06-27-2021 11:45-0400 SaO2% (BldA) [Mass fraction] 99 % Peter Taqueriazzo VENEER GRADER.FACILITY MANAGER Work Phone: [facility] 06-27-2021 11:45-0400 Systolic blood pressure 147 mm[Hg] Peter Guzzo VENEER GRADER.FACILITY MANAGER Work Phone: [facility] 06-27-2021 11:30-0400 Body temperature 98.1 [degF] Peter Guzzo VENEER GRADER.FACILITY MANAGER Work Phone: [facility] 06-27-2021 10:53-0400 Body height 162.6 cm Peter Guzzo VENEER GRADER.FACILITY MANAGER Work Phone: [facility] 06-27-2021 10:53-0400 Body weight 95.71 kg Peter Knight LIO.FACILITY MANAGER Work Phone: [facility] 06-21-2021 01:00-0400 Diastolic blood pressure 84 mm[Hg] Sean Andes DO Work Phone: [facility] 06-21-2021 01:00-0400 Heart rate 87 /min Sean Andes DO Work Phone: [facility] 06-21-2021 01:00-0400 Respiratory rate 21 /min Sean Andes DO Work Phone: [facility] 06-21-2021 01:00-0400 SaO2% (BldA) [Mass fraction] 90 % Sean Andes DO Work Phone: [facility] 06-21-2021 01:00-0400 Systolic blood pressure 121 mm[Hg] Sean Andes DO Work Phone: [facility] 06-21-2021 00:04-0400 Body temperature 98.6 [degF] Sean Andes DO Work Phone: [facility] 06-14-2021 09:07-0400 Body height 162.6 cm Jackelyn Marques MD Work Phone: [facility] 06-14-2021 09:07-0400 Body weight 96.66 kg Jackelyn Marques MD Work Phone: [facility] 06-14-2021 09:07-0400 Diastolic blood pressure 80 mm[Hg] Jackelyn Marques MD Work Phone: [facility] 06-14-2021 09:07-0400 Heart rate 71 /min Jackelyn Marques MD Work Phone: [facility] 06-14-2021 09:07-0400 Systolic blood pressure 126 mm[Hg] Jackelyn Marques MD Work Phone: [facility] 06-10-2021 09:45-0400 Body height 162.6 cm Yan Bass MD Work Phone: [facility] 06-10-2021 09:45-0400 Body temperature 97.39 [degF] Yan Bass MD Work Phone: [facility] 06-10-2021 09:45-0400 Body weight 97.61 kg Yan Bass MD Work Phone: [facility] 06-10-2021 09:45-0400 Diastolic blood pressure 50 mm[Hg] Yan Bass MD Work Phone: [facility] 06-10-2021 09:45-0400 Heart rate 64 /min Yan Bass MD Work Phone: [facility] 06-10-2021 09:45-0400 Respiratory rate 16 /min Yan Bass MD Work Phone: [facility] 06-10-2021 09:45-0400 SaO2% (BldA) [Mass fraction] 100 % Yan Bass MD Work Phone: [facility] 06-10-2021 09:45-0400 Systolic blood pressure 124 mm[Hg] Yan Bass MD Work Phone: [facility] 06-04-2021 19:43-0400 Diastolic blood pressure 49 mm[Hg] Brian Santana MD Work Phone: [facility] 06-04-2021 19:43-0400 Heart rate 69 /min Brian Santana MD Work Phone: [facility] 06-04-2021 19:43-0400 Respiratory rate 23 /min Brian Santana MD Work Phone: [facility] 06-04-2021 19:43-0400 SaO2% (BldA) [Mass fraction] 92 % Brian Santana MD Work Phone: [facility] 06-04-2021 19:43-0400 Systolic blood pressure 106 mm[Hg] Brian Santana MD Work Phone: [employer] 06-04-2021 16:26-0400 Body mass index (BMI) [Ratio] 36.22 kg/m2 Brian [facility] 06-04-2021 16:26-0400 Body temperature 98.4 [degF] Brian Santana MD Work Phone: [employer] 06-04-2021 16:26-0400 Body weight 95.71 kg Brian Santana MD Work Phone: [employer] 05-20-2021 18:43-0400 Diastolic blood pressure 51 mm[Hg] Cas Dowell MD Work Phone: [facility] [employer] 05-20-2021 18:43-0400 Heart rate 53 /min Cas Dowell MD Work Phone: [employer] 05-20-2021 18:43-0400 Respiratory rate 16 /min Cas Dowell MD Work Phone: [employer] 05-20-2021 18:43-0400 SaO2% (BldA) [Mass fraction] 96 % Cas Dowell MD Work Phone: [facility] [employer] 05-20-2021 18:43-0400 Systolic blood pressure 112 mm[Hg] [facility] 05-20-2021 12:55-0400 Body height 162.6 cm Cas Dowell MD Work Phone: [employer] 05-20-2021 12:55-0400 Body mass index (BMI) [Ratio] 36.22 kg/m2 Cas Dowell MD Work Phone: [employer] 05-20-2021 12:55-0400 Body weight 95.71 kg Cas Dowell MD Work Phone: [employer] 04-16-2021 19:39-0500 Body temperature 97.39 [degF] Mike Stevenson MD [employer] 04-16-2021 19:39-0500 Diastolic blood pressure 89 mm[Hg] Mike Stevenson MD [employer] 04-16-2021 19:39-0500 Heart rate 55 /min Mike Stevenson MD [employer] 04-16-2021 19:39-0500 Respiratory rate 15 /min Mike Stevenson MD [employer] 04-16-2021 19:39-0500 SaO2% (BldA) [Mass fraction] 98 % Mike Stevenson MD [employer] 04-16-2021 19:39-0500 Systolic blood pressure 131 mm[Hg] Mike Stevenson MD [employer] 11-01-2020 17:24-0400 SaO2% (BldA) [Mass fraction] 94 % Araseli Barrett MD Work Phone: [employer] Work Phone: 11-01-2020 16:20-0400 Diastolic blood pressure 73 mm[Hg] Araseli Barrett MD Work Phone: [employer] Work Phone: 11-01-2020 16:20-0400 Systolic blood pressure 142 mm[Hg] Araseli Barrett MD Work Phone: [employer] Work Phone: 11-01-2020 15:48-0400 Body temperature 101.61 [degF] Araseli Barrett MD Work Phone: [employer] Work Phone: 11-01-2020 13:32-0400 Body mass index (BMI) [Ratio] 37.76 kg/m2 Araseli Barrett MD Work Phone: [employer] Work Phone: 11-01-2020 13:32-0400 Body weight 99.79 kg Araseli Barrett MD Work Phone: [employer] Work Phone: 11-01-2020 13:32-0400 Heart rate 91 /min Araseli Barrett MD Work Phone: [employer] Work Phone: 11-01-2020 13:32-0400 Respiratory rate 22 /min Araseli Barrett MD Work Phone: [employer] Work Phone: 06-13-2020 05:10-0400 Diastolic blood pressure 73 mm[Hg] Kody Cm MD Work Phone: [employer] Work Phone: 06-13-2020 05:10-0400 Systolic blood pressure 131 mm[Hg] Kody Cm MD Work Phone: [employer] Work Phone: 06-13-2020 05:09-0400 Body temperature 96.8 [degF] Kody Cm MD Work Phone: [employer] Work Phone: 06-13-2020 05:09-0400 Heart rate 74 /min Kody Cm MD Work Phone: [employer] Work Phone: 06-13-2020 05:09-0400 Respiratory rate 12 /min Kody Cm MD Work Phone: [employer] Work Phone: 06-13-2020 05:09-0400 SaO2% (BldA) [Mass fraction] 97 % Kody Cm MD Work Phone: [employer] Work Phone: Encounters Encounter Date Encounter Type Care Provider Facility Start: 09-11-2023 ambulatory LORAINE Wilde ty:[facility] Start: 01-24-2023 ambulatory Cas olson MD Facility:[facility] Start: 01-16-2023 End: 01-16-2023 ambulatory CAS DOWELL Not Available Start: 01-10-[address] [facility] Start: 01-04-2023 End: 01-05-2023 ambulatory Tesfaye MASON Facility:[facility] Start: 01-01-2023 End: 01-01-2023 ambulatory ANGELIKA [facility] Start: 12-19-2022 ambulatory LORAINE RUBALCAVA Facility :[facility] Start: 12-18-2022 End: 12-18-2022 Emergency department patient visit CAS DOWELL [facility] Start: 12-18-2022 ambulatory LORAINE RUBALCAVA Facility :[facility] Start: 11-29-2022 End: 11-30-2022 ambulatory Cas Dowell MD Facility:[facility] Start: 11-14-2022 End: 11-14-2022 ambulatory MACRINA [facility] Start: 10-18-2022 End: 10-19-2022 ambulatory Phillip Thomas MD Facility:[facility] Start: 10-02-2022 End: 10-02-2022 ambulatory CAS DOWELL Facility:[facility] Start: 10-02-2022 End: 10-02-2022 Office outpatient visit 15 minutes Fuentes Amaral MD Work Phone: Hematology/Oncology Comment on above: 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HCC) (Primary Dx); Bleeding disorder (HCC); Coagulopathy (HCC) Start: 09-05-2022 End: 09-06-2022 ambulatory LORAINE RUBALCAVA Facility:[facility] [place] Start: 09-05-2022 End: 09-05-2022 Patient encounter procedure LORAINEJEANETTE RUBALCAVA [facility] Start: 09-04-2022 ambulatory LORAINE RUBALCAVA Facility :[facility] [place] Start: 07-21-[address] [facility] Start: 07-04-2022 End: 07-04-2022 [facility] Start: 06-27-2022 End: 06-27-2022 ambulatory STEPHON CRONIN [facility] Start: 06-26-2022 End: 06-27-2022 ambulatory Phillip Thomas MD Facility:[facility] Start: 06-15-2022 End: 06-16-[address] CAS DOWELL Facility:[facility] Start: 06-05-2022 End: 06-06-[address] DOCTOR CONN Facility:[facility] Start: 05-24-2022 ambulatory MACRINA LUNASUSANA [facility] Start: 05-03-2022 Telephone encounter Meena peter MD Work Phone: Neurology Comment on above: PAP Therapy Follow U p (DOWNLOAD) Start: 04-27-2022 End: 04-27-2022 ambulatory CAS DOWELL Facility:[facility] Start: 04-26-2022 End: 04-26-2022 ambulatory Bhargavi Saldana PA-C Work Phone: Neurology Comment on above: Migraine without aur a and without status migrainosus, not intractable (Primary Dx) Start: 04-26-2022 End: 04-26-2022 Telemedicine consultation with patient Bhargavi Saldana PA-C Work Phone: [facility] Start: 04-17-2022 End: 04-18-2022 [facility] Fuentes Amaral MD Work Phone: Hematology/Oncology Comment on above: 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HCC) (Primary Dx) Start: 04-10-2022 End: 04-10-2022 ambulatory MEENA GRISSOM Facility:[facility] Start: 04-03-2022 Telephone encounter Meena peter MD Work Phone: Neurology Comment on above: PAP Therapy Follow U p (NOT COMPLIANT NEEDS SD CHIP SENT TO DME ) Start: 04-03-2022 End: 04-03-2022 ambulatory CAS DOWELL Facility:[facility] Start: 04-03-2022 End: 04-03-2022 Office outpatient visit 15 minutes Fuentes Amaral MD Work Phone: Hematology/Oncology Comment on above: 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HCC) (Primary Dx); Bleeding disorder (HCC) Start: 03-29-2022 End: 03-30-2022 ambulatory FUENTES AMARAL [facility] Start: 03-21-2022 Telephone encounter Yancy León RN Hematology/Oncology Comment on above: Orders; Appointment Start: 03-16-2022 End: 03-17-2022 ambulatory FUENTES AMARAL [facility] Start: 02-28-2022 End: 03-01-2022 ambulatory LORAINE COMBSRY Facility:[facility] Start: 02-28-2022 End: 02-28-2022 Patient encounter procedure LORAINE RUBALCAVA [facility] Start: 02-27-2022 Patient Update Tesfaye Whitman [facility] Home Delivery Comment on above: Patient Update (Medi cation Refill Consent) Start: 02-24-2022 Telephone encounter Bhargavi donaldson PA-C Work Phone: Neurology Comment on above: Referral Request (PA for Ajovy) Start: 02-22-2022 ambulatory Fuentes almonte MD Work Phone: Hematology/Oncology Comment on above: Platelet electrophor esis lab Start: 02-17-2022 Telephone encounter Yancy León RN Hematology/Oncology Comment on above: Orders; Question Start: 02-17-2022 End: 02-18-2022 ambulatory CAS DOWELL [facility] Start: 02-17-2022 End: 02-17-2022 Subsequent hospital visit by physician Cas Dowell MD Work Phone: [facility] Start: 02-16-2022 Telephone encounter Yancy León RN Hematology/Oncology Comment on above: Orders Start: 02-15-2022 End: 03-15-2022 ambulatory SHAIKH Janet JACOBSON Facility: Start: 02-13-2022 End: 02-14-2022 ambulatory CAS DOWELL Facility:[facility] Start: 02-13-2022 End: 02-13-2022 Patient encounter procedure Meena Grissom MD Work Phone: Neurology Comment on above: No-show for appointm ent (Primary Dx) Start: 02-13-2022 End: 02-13-2022 Telemedicine consultation with patient Meena Grissom MD Work Phone: [facility] Start: 02-10-2022 End: 02-10-2022 Visit (SP) Office Fuentes Amaral MD Work Phone: Hematology/Oncology Comment on above: 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HCC) (Primary Dx); Bleeding disorder (HCC) Start: 02-01-2022 Telephone encounter [facility] Work Phone: Neurology Comment on above: Appointment (Lauro brandt Pap Therapy Follow Up-) Start: 01-30-2022 End: 01-30-2022 Emergency department patient visit [facility] Start: 01-23-2022 End: 01-24-2022 ambulatory Marcell GREEN Facility:[facility] Start: 01-23-2022 End: 01-23-2022 Patient encounter procedure Marcell GREEN [facility] Start: 01-17-2022 End: 01-18-2022 ambulatory Phillip Thomas MD Facility[facility] Start: 01-16-2022 End: 01-16-2022 ambulatory Bhargavi Saldana PA-C Work Phone: Neurology Comment on above: Migraine without aur a and without status migrainosus, not intractable (Primary Dx) Start: 01-16-2022 End: 01-16-2022 Telemedicine consultation with patient Bhargavi Saldana PA-C Work Phone: [facility] Start: 01-08-2022 End: 01-11-2022 Evaluation and management of inpatient CHAYO CASILLAS ELIEZER [facility] Start: 01-07-2022 End: 01-07-2022 Emergency department patient visit [facility] Start: 01-01-2022 End: 01-02-2022 ambulatory CAS DOWELL Facility:[facility] Start: 12-24-2021 End: 12-25-[address] BELÉN ANDRADE Facility: Start: 2021 End: 2021 Patient encounter procedure LORAINE RUBALCAVA [facility] Start: 12-20-2021 Telephone encounter Juan Ramon olvera [facility] Work Phone: [facility] Comment on above: Results Start: 12-17-2021 Encounter for genera l adult medical examination without abnormal findings DR CAS DOWELL [facility] Start: 12-15-2021 Chart abstracting [facility] Work Phone: Neurology Start: 12-15-2021 End: 12-17-2021 ambulatory CAS DOWELL Facility:[facility] Start: 12-12-2021 End: 12-13-[address] CAS DOWELL Facility: Start: 12-12-2021 End: 12-13-2021 Encounter for general adult medical examination without abnormal findings DR CAS DOWELL Facility: Start: 12-06-2021 Orders Only Jaja shabazz PA-C Work Phone: Pulmonary Medicine Comment on above: Moderate persistent asthma without complication (Primary Dx); SOB (shortness of breath); Post-acute sequelae of COVID-19 (PASC) Start: 12-02-2021 End: 12-02-2021 ambulatory CAS DOWELL Facility:[facility] Start: 12-02-2021 End: 12-02-2021 Patient encounter procedure Syncope Opd Nurse Work Phone: Cardiology Comment on above: Palpitations (Primar y Dx); Orthostatic intolerance; Symptomatic bradycardia Start: 12-01-2021 Telephone encounter Micheal connell MD Work Phone: Cardiology Comment on above: Patient Update Start: 11-25-2021 ambulatory Farzaneh Steward RN Cardio logy Comment on above: TILT TABLE TEST INST RUCTIONS - READ CAREFULLY Start: 11-25-2021 E-mail encounter henrik m caregiver Farzaneh Steward RN [facility] Start: 11-18-2021 End: 11-18-2021 ambulatory CAS DOWELL Facility:[facility] Start: 11-18-2021 End: 11-18-2021 Visit (SP) Office Fuentes Amaral MD Work Phone: Hematology/Oncology Comment on above: Breast screening (Pr imary Dx); 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HCC) Start: 11-16-2021 End: 11-16-2021 Telephone encounter Meena Grissom MD Work Phone: Neurology Comment on above: Filament Shaper - O ther (Download) KATELIN on CPAP (Primary Dx); RLS (restless legs syndrome); Shift work sleep disorder; Sleep paralysis; 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; History of posttraumatic stress disorder (PTSD); Poor sleep pattern; Poor compliance with CPAP treatment Start: 11-16-2021 End: 11-16-2021 ambulatory CAS DOWELL Facility:[facility] Start: 11-16-2021 End: 11-16-2021 Telemedicine consultation with patient Meena Grissom MD Work Phone: [facility] Start: 11-15-2021 Telephone encounter [facility] Work Phone: Neurology Comment on above: Appointment (Lauro brandt Pap Therapy Follow UP) Start: 11-14-2021 End: 11-14-[address] BELÉN ANDRADE Facility: Start: 11-10-2021 End: 11-11-2021 [facility] Fuentes Amaral MD Work Phone: Hematology/Oncology Comment on above: Breast screening (Pr imary Dx); 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HCC) Start: 11-07-2021 ambulatory Micheal lanier MD Work Phone: Cardiology Comment on above: Cardiac testing Nebulizer tubing Start: 11-03-2021 End: 11-03-2021 Visit (SP) Office Fuentes Amaral MD Work Phone: Hematology/Oncology Comment on above: 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HCC) (Primary Dx); Bleeding disorder (HCC) Genetic testing Start: 10-31-2021 End: 10-31-2021 ambulatory SAI PEREZ Facility:[facility] Start: 10-27-2021 Telephone encounter Fuentes stewart MD Work Phone: Hematology/Oncology Comment on above: Lab Orders Start: 10-24-2021 End: 10-24-2021 ambulatory CINDY RUSHING Facility:[facility] Start: 10-24-2021 End: 10-24-2021 ambulatory Cindy Rushing MD Work Phone: Allergy Comment on above: Night sweats (Primar y Dx); Lymphadenopathy; Rash and nonspecific skin eruption; Allergic rhinitis, unspecified seasonality, unspecified trigger; Moderate persistent asthma without complication Start: 10-24-2021 End: 10-24-2021 Telemedicine consultation with patient Cindy Rushing MD Work Phone: [facility] Start: 10-20-2021 End: 10-20-2021 ambulatory Micheal Perez MD Work Phone: Cardiology Comment on above: Palpitations (Primar y Dx); Symptomatic bradycardia; Orthostatic lightheadedness; Diffuse pain; Blood pressure instability; Decreased activity tolerance; Orthostatic intolerance; Moderate persistent asthma without complication; Physical deconditioning Start: 10-20-2021 End: 10-20-2021 Telemedicine consultation with patient Micheal Perez MD Work Phone: [facility] Start: 10-19-2021 End: 10-19-2021 ambulatory BHARGAVI SALDANA Facility:[facility] Start: 10-19-2021 End: 10-19-2021 ambulatory Bhargavi Saldana PA-C Work Phone: Neurology Comment on above: Chronic migraine wit hout aura, intractable, without status migrainosus (Primary Dx) Start: 10-19-2021 End: 10-19-2021 Telemedicine consultation with patient Bhargavi Saldana PA-C Work Phone: [facility] Start: 10-19-2021 End: 10-20-[address] HUSAM KIM Facility: Start: 10-14-2021 End: 10-14-2021 ambulatory Dolores Valdes PSYD Work Phone: Neurological Confucianism Comment on above: Depression, unspecif ied depression type (Primary Dx); Anxiety; Abnormal involuntary movement Start: 10-14-2021 End: 10-14-2021 Telemedicine consultation with patient Dolores Valdes PSYD Work Phone: [facility] Start: 10-12-2021 End: 10-12-2021 ambulatory CAS DWOELL Facility:[facility] Start: 10-12-2021 End: 10-12-2021 ambulatory Ruth Villaseñor MD Work Phone: Rheumatology Comment on above: Malaise and fatigue (Primary Dx); Lymphadenopathy Start: 10-12-2021 End: 10-12-2021 Telemedicine consultation with patient Ruth Villaseñor MD Work Phone: [facility] Start: 09-30-2021 ambulatory Landen Clark APR N.FACILITY MANAGER Work Phone: Pulmonary Medicine Comment on above: Breast testing Start: 09-30-2021 End: 09-30-2021 Subsequent hospital visit by physician Xr Chest Main A21 Radiology Comment on above: History of COVID-19 [Z86.16] Start: 09-27-2021 End: 09-27-2021 ambulatory Pulm [place] Work Phone: Pulmonary Lab Comment on above: Spirometry Start: 09-27-2021 End: 09-27-2021 Patient encounter procedure Pulm [facility] [place] [facility] Start: 09-23-2021 ambulatory Landen Clark APR N.FACILITY MANAGER Work Phone: Pulmonary Medicine Comment on above: Breathing test Start: 09-22-2021 End: 09-23-2021 ambulatory Landen Clark APRN.FACILITY MANAGER Work Phone: Pulmonary Medicine Comment on above: Ct scan results Start: 09-22-2021 Telephone encounter Landen Clark APRN.FACILITY MANAGER Work Phone: Pulmonary Medicine Comment on above: Results Start: 09-21-2021 End: 09-21-2021 Patient encounter procedure Ruth Villaseñor MD Work Phone: Rheumatology Comment on above: Bone pain (Primary D x); Malaise and fatigue; Lymphadenopathy Start: 09-21-2021 End: 09-22-[address] CAS DOWELL Facility: Start: 09-19-2021 End: 09-19-2021 Patient encounter procedure Landen Clark APRN.FACILITY MANAGER Work Phone: Pulmonary Medicine Comment on above: 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); History of COVID-19; SOB (shortness of breath); Chronic cough; Chest discomfort; Palpitation; CAVANAUGH (dyspnea on exertion); Dizziness; Near syncope; Night sweats; Orthopnea; Anxiety; Myalgia; Pain in joint, multiple sites; Mass of left axilla Start: 09-19-2021 Telephone encounter Landen Clark APRN.FACILITY MANAGER Work Phone: Pulmonary Medicine Comment on above: Filament Shaper - O ther Start: 09-16-2021 End: 09-16-2021 ambulatory Dolores Valdes PSYD Work Phone: Neurological Confucianism Comment on above: Depression, unspecif ied depression type (Primary Dx); Anxiety; Abnormal involuntary movement Start: 09-16-2021 End: 09-16-2021 Telemedicine consultation with patient Dolores Valdes PSYD Work Phone: [facility] Start: 09-05-2021 End: 09-05-2021 Emergency department patient visit Christine Jaky bAraham DO Work Phone: [facility] ED Comment on above: Allergic reaction, i nitial encounter (Primary Dx) Start: 08-30-2021 End: 08-30-2021 [facility] Ayaka Bright MD Work Phone: [facility] Comment on above: Long COVID (Primary Dx); Diffuse pain; Decreased activity tolerance; PTSD (post-traumatic stress disorder) CT scan results sent Start: 08-23-2021 Telephone encounter Shelbie Umaña PA-C Work Phone: General Surgery Comment on above: Results - Ct Start: 08-23-2021 End: 08-23-2021 ambulatory Peter Knight APRN.FACILITY MANAGER Work Phone: Neurology Comment on above: Diffuse pain (Primar y Dx); Decreased activity tolerance; Physical deconditioning; Orthostatic intolerance Start: 08-23-2021 End: 08-23-2021 Telemedicine consultation with patient Peter Knight APRN.FACILITY MANAGER Work Phone: [facility] Start: 08-18-2021 ambulatory Mike Zayas MD Work Phone: [facility] Start: 08-18-2021 Patient encounter procedure Mike Zayas MD Work Phone: [facility] Start: 08-17-2021 ambulatory SAI [facility] Facility: [facility] Start: 08-17-2021 End: 08-17-2021 Subsequent hospital visit by physician Echo [facility] Echocardiology Testing Comment on above: Symptomatic bradycar aziza [R00.1] Start: 08-16-2021 Orders Only Berlin Avila MD Work Phone: Radiology Comment on above: Chronic RLQ pain (Pr imary Dx) Start: 08-15-2021 Telephone encounter Jenni cassidy RN Work Phone: [facility] Comment on above: Insurance Authorizat ion (Emgality 120MG/ML syringes (migraine)) Start: 08-15-2021 End: 08-15-2021 Patient encounter procedure Berlin Avila MD Work Phone: General Surgery Comment on above: Chronic RLQ pain (Pr imary Dx); Diastasis recti Start: 08-12-2021 End: 08-12-2021 ambulatory Daniela Stewart PT Work Phone: [facility] Comment on above: Intractable chronic migraine without aura and without status migrainosus; Abnormal involuntary movement Start: 08-12-2021 End: 08-12-2021 Patient encounter procedure Brewery Cellar Worker Work Phone: Kidney Medicine [facility] [place] Comment on above: White coat syndrome with hypertension (Primary Dx) Start: 08-05-2021 End: 08-05-2021 ambulatory Bhargavi Saldana PA-C Work Phone: Neurology Comment on above: Chronic migraine wit hout aura, intractable, without status migrainosus (Primary Dx) Start: 08-05-2021 End: 08-05-2021 Telemedicine consultation with patient Bhargavi Saldana PA-C Work Phone: [facility] Start: 08-03-2021 End: 08-03-[address] RUBENS TIM . Facility: Start: 07-29-2021 End: 07-29-2021 ambulatory Dolores Valdes PSYD Work Phone: Neurological Confucianism Comment on above: Depression, unspecif ied depression type (Primary Dx); Anxiety; Intractable chronic migraine without aura and without status migrainosus; Abnormal involuntary movement Start: 07-29-2021 End: 07-29-2021 Telemedicine consultation with patient Dolores Valdes PSYD Work Phone: [facility] Start: 07-25-2021 End: 07-25-2021 Patient encounter procedure Cindy Rushing MD Work Phone: Allergy Comment on above: Angioedema, initial encounter (Primary Dx); Urticaria; Hoarseness of voice; Allergic rhinitis, unspecified seasonality, unspecified trigger; Adverse effect of drug, initial encounter; Allergic reaction to contrast material, initial encounter; Adverse food reaction, initial encounter; Moderate persistent asthma without complication; Gastroesophageal reflux disease, unspecified whether esophagitis present Start: 07-22-2021 End: 07-22-2021 Visit (SP) Office Yan Bass MD Work Phone: Hematology/Oncology Comment on above: 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HCC) (Primary Dx); Bleeding disorder (HCC) Start: 07-21-2021 End: 07-21-2021 Patient encounter procedure Sai Perez MD Work Phone: Cardiology Comment on above: History of COVID-19 (Primary Dx); Symptomatic bradycardia; Blood pressure instability Start: 07-18-2021 End: 07-18-2021 Patient encounter procedure Lab Lucas Wilks Work Phone: Laboratory Medicine Comment on above: Screening for endocr ine disorder Start: 07-15-2021 End: 07-15-2021 [facility] Juan Ramon Briones [facility] Work Phone: Genetic Healthcare Comment on above: Bleeding disorder (H CC) (Primary Dx); Coagulopathy (HCC); 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HCC) Start: 07-14-2021 End: 07-14-2021 Patient encounter procedure Aldo Ann MD Work Phone: Otolaryngology Comment on above: Allergy, initial enc ounter (Primary Dx); Headaches Start: 07-06-2021 End: 07-06-2021 Patient encounter procedure Tracee Mcintyre MD Work Phone: Neurological Confucianism Comment on above: Intractable chronic migraine without aura and without status migrainosus (Primary Dx); Abnormal involuntary movement Start: 07-05-2021 Telephone encounter Jackelyn Lewis i, MD Work Phone: Endocrinology Comment on above: Orders Start: 07-01-2021 End: 07-01-2021 Visit (SP) Office Yan Bass MD Work Phone: Hematology/Oncology Comment on above: Coagulopathy (HCC) ( Primary Dx); 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HCC) Screening for endocr ine disorder; Muscle spasms of lower extremity, unspecified laterality; Akathisia Start: 06-27-2021 End: 06-27-2021 Patient encounter procedure Peter Knight APRN.FACILITY MANAGER Work Phone: Neurology Comment on above: Worsening headaches (Primary Dx); Maxillary sinus cyst; Muscle spasms of lower extremity, unspecified laterality; Akathisia; Blurred vision; Chorea Start: 06-24-2021 End: 06-25-[address] VIKASH BECKHAM . Facility: Start: 06-22-2021 ambulatory Peter Knight APRN.FACILITY MANAGER Work Phone: Neurology Comment on above: Legs Start: 06-20-2021 End: 06-21-2021 Emergency department patient visit Sean Moses DO Work Phone: [facility] ED Comment on above: Spasm of muscle (Hannah bhumika Dx); Acute nonspecific chest pain with low risk of coronary artery disease Start: 06-16-2021 Telephone encounter Yan Bass MD Work Phone: Hematology/Oncology Comment on above: Results Start: 06-16-2021 ambulatory PETER KNIGHT Facility :[facility] Start: 06-14-2021 Telephone encounter Jackelyn Lewis i, MD Work Phone: Endocrinology Comment on above: Orders Start: 06-14-2021 End: 06-14-2021 Patient encounter procedure Jackelyn Marques MD Work Phone: Endocrinology Comment on above: Screening for endocr ine disorder (Primary Dx); Primary hypothyroidism Start: 06-14-2021 End: 06-14-2021 ambulatory Autonomic Main Neurology Comment on above: Assessment Start: 06-14-2021 End: 06-14-2021 Patient encounter procedure Autonomic 2 Neur Main [facility] Start: 06-13-2021 ambulatory Peter Knight VENEER GRADER.FACILITY MANAGER Work Phone: Neurology Comment on above: Blood results Start: 06-10-2021 End: 06-10-2021 ambulatory Yan Bass MD Work Phone: Hematology/Oncology Comment on above: Coagulopathy (HCC) ( Primary Dx) Start: 06-10-2021 End: 06-10-2021 Patient encounter procedure Yan Bass MD Work Phone: [facility]W Start: 06-08-2021 Chart abstracting Yan tran MD Work Phone: Hematology/Oncology Start: 06-04-2021 End: 06-04-2021 Emergency department patient visit Brian Santana MD Work Phone: [facility] ED Comment on above: Urticaria (Primary D x); Moderate persistent asthma with exacerbation Start: 05-31-2021 Telephone encounter Peter bermeo VENEER GRADER.FACILITY MANAGER Work Phone: Neurology Comment on above: Received Outside Med ical Records ([facility]) Start: 05-20-2021 End: 05-20-2021 Emergency department patient visit Cas Dowell MD Work Phone: [facility] ED Comment on above: Chest pain, unspecif ied type (Primary Dx); Abdominal pain, acute, right lower quadrant Start: 04-16-2021 End: 04-16-2021 Emergency department patient visit Mike Stevenson MD [facility] ED Comment on above: Intractable nausea a nd vomiting (Primary Dx); Hydrosalpinx; Left ovarian cyst Start: 03-07-2021 End: 03-08-2021 ambulatory CAS DOWELL [facility] Start: 03-06-2021 End: 03-07-2021 ambulatory [address]ELL [facility] Start: 11-01-2020 End: 11-01-2020 Emergency department patient visit Araseli Barrett MD Work Phone: [facility] ED Comment on above: COVID-19 (Primary Dx ) Start: 06-13-2020 End: 06-13-2020 Emergency department patient visit Kody Cm MD Work Phone: [facility] ED Comment on above: Strain of lumbar reg ion, initial encounter (Primary Dx) Procedures Date Procedure Procedure Detail Performing Clinician Start: 02-17-2022 Assay of free thyroxine Akila Yao MD Work Phone: Start: 01-23-2022 Cystourethroscopy with dilation of urethral stricture LORAINE RUBALCAVA Start: 10-17-2021 Adult depression screening assessment Dolores Valdes PSYD Work Phone: Start: 10-08-2021 Adult depression screening assessment Ruth Villaseñor MD Work Phone: Start: 09-30-2021 Radiologic exam chest 2 views Landen Clark APRN.FACILITY MANAGER Work Phone: Start: 09-27-2021 End: 09-27-2021 Co diffusing capacity Landen Clark APRN.CN P Work Phone: Start: 09-14-2021 Adult depression screening assessment Dolores Valdes PSYD Work Phone: Start: 08-17-2021 Echo tthrc r-t 2d w/wom-mode compl spec&colr d Christy Santos MD Work Phone: Start: 08-17-2021 LVEF ECHO Sai Perez MD Work Phone: Start: 07-29-2021 Adult depression screening assessment [facility] Work Phone: Start: 07-18-2021 Adrenocorticotropic hormone acth Jackelyn Marques MD Work Phone: Start: 07-01-2021 Adrenocorticotropic hormone acth Jackelyn Marques MD Work Phone: Start: 06-29-2021 Adult depression screening assessment Yan Bass MD Work Phone: Start: 06-21-2021 Radiologic exam chest single view Sean Andes DO Work Phone: Start: 06-21-2021 Basic metabolic panel calcium total Sean Andes DO Work Phone: Start: 06-21-2021 Ecg routine ecg w/least 12 lds w/i&r Sean Andes DO Work Phone: Start: 06-20-2021 Adult depression screening assessment Peter Knight VENEER GRADER.FACILITY MANAGER Work Phone: Start: 06-04-2021 RESPIRATORY CARE EVALUATION ONLY Brian Santana MD Work Phone: Start: 05-20-2021 Assay of troponin quantitative Shanna Rivas VENEER GRADER - FACILITY MANAGER Work Phone: Start: 05-20-2021 Ct abdomen & pelvis w/o contrast material Shanna Rivas VENEER GRADER - FACILITY MANAGER Work Phone: Start: 05-20-2021 Drug screen class list a Shanna anguiano VENEER GRADER - FACILITY MANAGER Work Phone: Start: 05-20-2021 Urinalysis microscopic only Shanna mchughy VENEER GRADER - FACILITY MANAGER Work Phone: Start: 05-20-2021 Urnls dip stick/tablet rgnt auto w/o microscopy Shanna Bishop Evelyn VENEER GRADER - FACILITY MANAGER Work Phone: Start: 05-20-2021 Radiologic exam chest single view Shanna Bishop Evelyn VENEER GRADER - FACILITY MANAGER Work Phone: Start: 05-20-2021 Assay of lactate Shanna Bishop Evelyn APR N - FACILITY MANAGER Work Phone: Start: 05-20-2021 BASIC METABOLIC PANEL W/ REFLEX TO MG FOR LOW K Shanna Bishop Evelyn VENEER GRADER - FACILITY MANAGER Work Phone: Start: 05-20-2021 C-reactive protein Shanna Bishop Evelyn APR N - FACILITY MANAGER Work Phone: Start: 05-20-2021 Ecg routine ecg w/least 12 lds w/i&r Araseli Barrett MD Work Phone: Start: 05-19-2021 Adult depression screening assessment Peter Knight VENEER GRADER.FACILITY MANAGER Work Phone: Start: 04-16-2021 Ct abdomen & pelvis w/o contrast material Shanna Bishop Evelyn VENEER GRADER - FACILITY MANAGER Work Phone: Start: 04-16-2021 Radiologic exam chest single view Shanna Bishop Evelyn VENEER GRADER - FACILITY MANAGER Work Phone: Start: 04-16-2021 Ecg routine ecg w/least 12 lds w/i&r Shanna Bishop Evelyn VENEER GRADER - FACILITY MANAGER Work Phone: Start: 04-16-2021 Urinalysis microscopic only Shanna Peña dax VENEER GRADER - FACILITY MANAGER Work Phone: Start: 04-16-2021 Urine test visual color cmprsn meths Shanna Bishop Evelyn VENEER GRADER - FACILITY MANAGER Work Phone: Start: 04-16-2021 Assay of lipase Shanna Bishop Evelyn APR N - FACILITY MANAGER Work Phone: Start: 04-16-2021 BASIC METABOLIC PANEL W/ REFLEX TO MG FOR LOW K Shanna Rivas VENEER GRADER - FACILITY MANAGER Work Phone: Start: 04-16-2021 Hepatic function panel Shanna Rivas VENEER GRADER - FACILITY MANAGER Work Phone: Start: 11-01-2020 Ecg routine ecg w/least 12 lds w/i&r Araseli Barrett MD Work Phone: Start: 11-01-2020 Assay of magnesium Araseli Barrett MD Work Phone: Start: 11-01-2020 BASIC METABOLIC PANEL W/ REFLEX TO MG FOR LOW K Araseli Barrett MD Work Phone: Start: 11-01-2020 Radiologic exam chest single view Araseli Barrett MD Work Phone: Start: 03-17-2019 Fallopian tube excision LORAINE RUBALCAVA Start: 04-08-2009 Laparoscopic cholecystostomy LORAINE TEO RRY Appendectomy LORAINE RUBALCAVA section LORAINE PE RRY Ligation of fallopian tube J DELIA RUBALCAVA Nasal septoplasty LORAINE Corwin ERRY Tympanostomy LORAINE RUBALCAVA Plan of Treatment Date Care Activity Detail Author Start: 10-03-2023 End: 10-03-2023 CBC W Auto Differential panel - Blood CBC + DIFF Lab Routine 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) Coagulopathy (HCC) Expected: 10/03/2023 (Approximate), Expires: 10/03/2023 [facility] Work Phone: Comment on above: Expected: 10/03/2023 (Approximate), Expires: 10/03/2023 Start: 10-03-2023 End: 10-03-2023 Comprehensive metabolic 2000 panel - Serum or Plasma COMP METABOLIC PANEL Lab Routine 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) Coagulopathy (HCC) Expected: 10/03/2023 (Approximate), Expires: 10/03/2023 [facility] Work Phone: Comment on above: Expected: 10/03/2023 (Approximate), Expires: 10/03/2023 Start: 01-30-2023 GFR test (Diabetes, CKD 3-4, OR last GFR 15-59) GFR test (Diabetes, CKD 3-4, OR last GFR 15-59) [facility] Start: 01-09-2023 Hemoglobin A1c measurement A1C test (Diabetic or Prediabetic) [facility] Start: 10-17-2022 Adult depression screening assessment DEPRESSION SCREENING [facility] Start: 10-08-2022 Adult depression screening assessment DEPRESSION SCREENING [facility] Start: 10-06-2022 Influenza vaccination INFLUENZA (#1) [facility] Start: 10-01-2022 End: 04-03-2023 CBC W Auto Differential panel - Blood CBC + DIFF Lab Routine 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) Expected: 10/01/2022 (Approximate), Expires: 04/03/2023 [facility] Work Phone: Comment on above: Expected: 10/01/2022 (Approximate), Expires: 04/03/2023 Start: 10-01-2022 End: 04-03-2023 Comprehensive metabolic 2000 panel - Serum or Plasma COMP METABOLIC PANEL Lab Routine 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) Expected: 10/01/2022 (Approximate), Expires: 04/03/2023 [facility] Work Phone: Comment on above: Expected: 10/01/2022 (Approximate), Expires: 04/03/2023 Start: 09-14-2022 Adult depression screening assessment DEPRESSION SCREENING [facility] Start: 07-29-2022 Adult depression screening assessment DEPRESSION SCREENING [facility] Start: 06-29-2022 Adult depression screening assessment DEPRESSION SCREENING [facility] Start: 06-21-2022 End: 06-21-2022 Patient encounter procedure 06/21/2022 Office Visit Pulmonology Armando Balderrama DO [address] [place] [address] [facility] Start: 06-20-2022 Adult depression screening assessment DEPRESSION SCREENING [facility] Start: 05-25-2022 Depression Monitoring Depression Mon armando [facility] Start: 05-19-2022 Adult depression screening assessment DEPRESSION SCREENING [facility] Start: 04-16-2022 Creatinine measurement Creatinine mo nitcarey [facility] Start: 04-16-2022 Potassium monitoring Potassium monit oring [facility] Start: 02-27-2022 End: 02-27-2022 Patient encounter procedure 02/27/2022 Office Visit Pulmonology Nabor Yancey, VENEER GRADER - FACILITY MANAGER [address] [id number] [facility] Start: 02-10-2022 End: 04-12-2022 PLATELET TRANSMISSION ELECTRON MICROSCOPIC STUDY PLATELET TRANSMISSION ELECTRON MICROSCOPIC STUDY Lab Routine 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) Expected: 02/10/2022, Expires: 04/12/2022 [facility] Work Phone: Comment on above: Expected: 02/10/2022 , Expires: 04/12/2022 Start: 02-05-2022 DEPRESSION ASSESSMENT DEPRESSION ASS ESSMENT [facility] Start: 2021 End: 2021 Patient encounter procedure 2021 Office Visit Pulmonology Armando Balderrama, [address] [id number] [facility] Start: 11-16-2021 End: 01-16-2022 Ferritin [Mass/volume] in Serum or Plasma FERRITIN BLD Lab Routine RLS (restless legs syndrome) Expected: 11/16/2021, Expires: 01/16/2022 [facility] Work Phone: Comment on above: Expected: 11/16/2021 , Expires: 01/16/2022 Start: 11-16-2021 End: 01-16-2022 Iron and Iron binding capacity panel - Serum or Plasma IRON + TIBC Lab Routine RLS (restless legs syndrome) Expected: 11/16/2021, Expires: 01/16/2022 [facility] Work Phone: Comment on above: Expected: 11/16/2021 , Expires: 01/16/2022 Start: 11-01-2021 [facility]inine [facility] Work [facility]: Start: 11-01-2021 Potassium monitoring Potassium monit [facility] Work Phone: Start: 10-06-2021 Influenza vaccination [facility] Start: 09-28-2021 Glaucoma screening Diabetic retinal exam [facility] Start: 09-21-2021 End: 11-21-2021 Phosphate [Mass/volume] in Serum or Plasma [facility] Work Phone: Comment on above: Expected: 09/21/2021 , Expires: 11/21/2021 Start: 09-19-2021 End: 11-19-2021 25-hydroxyvitamin D3 [Mass/volume] in Serum or Plasma VITAMIN D 25 HYDROXY Lab Routine History of COVID-19 Post-acute sequelae of COVID-19 (PASC) SOB (shortness of breath) Chronic cough Chest discomfort Palpitation CAVANAUGH (dyspnea on exertion) Dizziness Near syncope Night sweats Orthopnea Anxiety Myalgia Pain in joint, multiple sites Expected: 09/19/2021, Expires: 11/19/2021 [facility] Work Phone: Comment on above: Expected: 09/19/2021 , Expires: 11/19/2021 Start: 09-19-2021 End: 11-19-2021 C reactive protein [Mass/volume] in Serum or Plasma C-REACTIVE PROTEIN (CRP) Lab Routine History of COVID-19 Post-acute sequelae of COVID-19 (PASC) SOB (shortness of breath) Chronic cough Chest discomfort Palpitation CAVANAUGH (dyspnea on exertion) Dizziness Near syncope Night sweats Orthopnea Anxiety Myalgia Pain in joint, multiple sites Expected: 09/19/2021, Expires: 11/19/2021 [facility] Work Phone: Comment on above: Expected: 09/19/2021 , Expires: 11/19/2021 Start: 09-19-2021 End: 11-19-2021 CARDIOLIPIN IGM ABS CARDIOLIPIN IGM ABS Lab Routine History of COVID-19 Post-acute sequelae of COVID-19 (PASC) SOB (shortness of breath) Chronic cough Chest discomfort Palpitation CAVANAUGH (dyspnea on exertion) Dizziness Near syncope Night sweats Orthopnea Anxiety Myalgia Pain in joint, multiple sites Expected: 09/19/2021, Expires: 11/19/2021 [facility] Work Phone: Comment on above: Expected: 09/19/2021 , Expires: 11/19/2021 Start: 09-19-2021 End: 11-19-2021 CBC panel - Blood by Automated count CBC Lab Routine History of COVID-19 Post-acute sequelae of COVID-19 (PASC) SOB (shortness of breath) Chronic cough Chest discomfort Palpitation CAVANAUGH (dyspnea on exertion) Dizziness Near syncope Night sweats Orthopnea Anxiety Myalgia Pain in joint, multiple sites Expected: 09/19/2021, Expires: 11/19/2021 [facility] Work Phone: Comment on above: Expected: 09/19/2021 , Expires: 11/19/2021 Start: 09-19-2021 End: 11-19-2021 Cobalamin (Vitamin B12) [Mass/volume] in Serum or Plasma VITAMIN B12 BLOOD Lab Routine History of COVID-19 Post-acute sequelae of COVID-19 (PASC) SOB (shortness of breath) Chronic cough Chest discomfort Palpitation CAVANAUGH (dyspnea on exertion) Dizziness Near syncope Night sweats Orthopnea Anxiety Myalgia Pain in joint, multiple sites Expected: 09/19/2021, Expires: 11/19/2021 [facility] Work Phone: Comment on above: Expected: 09/19/2021 , Expires: 11/19/2021 Start: 09-19-2021 End: 11-19-2021 Comprehensive metabolic 2000 panel - Serum or Plasma COMP METABOLIC PANEL Lab Routine History of COVID-19 Post-acute sequelae of COVID-19 (PASC) SOB (shortness of breath) Chronic cough Chest discomfort Palpitation CAVANAUGH (dyspnea on exertion) Dizziness Near syncope Night sweats Orthopnea Anxiety Myalgia Pain in joint, multiple sites Expected: 09/19/2021, Expires: 11/19/2021 [facility] Work Phone: Comment on above: Expected: 09/19/2021 , Expires: 11/19/2021 Start: 09-19-2021 End: 11-19-2021 Erythrocyte sedimentation rate SED RATE WESTERGREN Lab Routine History of COVID-19 Post-acute sequelae of COVID-19 (PASC) SOB (shortness of breath) Chronic cough Chest discomfort Palpitation CAVANAUGH (dyspnea on exertion) Dizziness Near syncope Night sweats Orthopnea Anxiety Myalgia Pain in joint, multiple sites Expected: 09/19/2021, Expires: 11/19/2021 [facility] Work Phone: Comment on above: Expected: 09/19/2021 , Expires: 11/19/2021 Start: 09-19-2021 End: 11-19-2021 Fibrin D-dimer FEU [Mass/volume] in Platelet poor plasma D-DIMER Lab Routine History of COVID-19 Post-acute sequelae of COVID-19 (PASC) SOB (shortness of breath) Chronic cough Chest discomfort Palpitation CAVANAUGH (dyspnea on exertion) Dizziness Near syncope Night sweats Orthopnea Anxiety Myalgia Pain in joint, multiple sites Expected: 09/19/2021, Expires: 11/19/2021 [facility] Work Phone: Comment on above: Expected: 09/19/2021 , Expires: 11/19/2021 Start: 09-19-2021 End: 11-19-2021 Natriuretic peptide.B prohormone N-Terminal [Mass/volume] in Serum or Plasma NT PRO BNP Lab Routine History of COVID-19 Post-acute sequelae of COVID-19 (PASC) SOB (shortness of breath) Chronic cough Chest discomfort Palpitation CAVANAUGH (dyspnea on exertion) Dizziness Near syncope Night sweats Orthopnea Anxiety Myalgia Pain in joint, multiple sites Expected: 09/19/2021, Expires: 11/19/2021 [facility] Work Phone: Comment on above: Expected: 09/19/2021 , Expires: 11/19/2021 Start: 09-19-2021 End: 11-19-2021 OMEGACHECK OMEGACHECK Lab Routine History of COVID-19 Post-acute sequelae of COVID-19 (PASC) SOB (shortness of breath) Chronic cough Chest discomfort Palpitation CAVANAUGH (dyspnea on exertion) Dizziness Near syncope Night sweats Orthopnea Anxiety Myalgia Pain in joint, multiple sites Expected: 09/19/2021, Expires: 11/19/2021 [facility] Work Phone: Comment on above: Expected: 09/19/2021 , Expires: 11/19/2021 Start: 09-19-2021 End: 11-19-2021 TMAO TMAO Lab Routine History of COVID-19 Post-acute sequelae of COVID-19 (PASC) SOB (shortness of breath) Chronic cough Chest discomfort Palpitation CAVANAUGH (dyspnea on exertion) Dizziness Near syncope Night sweats Orthopnea Anxiety Myalgia Pain in joint, multiple sites Expected: 09/19/2021, Expires: 11/19/2021 [facility] Work Phone: Comment on above: Expected: 09/19/2021 , Expires: 11/19/2021 Start: 09-19-2021 End: 11-19-2021 TRACE ELEMENTS/TPN TRACE ELEMENTS/TPN Lab Routine History of COVID-19 Post-acute sequelae of COVID-19 (PASC) SOB (shortness of breath) Chronic cough Chest discomfort Palpitation CAVANAUGH (dyspnea on exertion) Dizziness Near syncope Night sweats Orthopnea Anxiety Myalgia Pain in joint, multiple sites Expected: 09/19/2021, Expires: 11/19/2021 [facility] Work Phone: Comment on above: Expected: 09/19/2021 , Expires: 11/19/2021 Start: 09-05-2021 Influenza vaccination Flu vaccine (# 1) [facility] Start: 08-24-2021 End: 08-24-2021 Patient encounter procedure 08/24/2021 Office Visit Pulmonology Armando Balderrama DO [address] [facility] [address] [place] [address] [facility] Start: 07-25-2021 End: 09-24-2021 Complement C3 [Mass/volume] in Serum or Plasma [facility] Work Phone: Comment on above: Expected: 07/25/2021 , Expires: 09/24/2021 Start: 07-25-2021 End: 09-24-2021 Complement C4 [Mass/volume] in Serum or Plasma [facility] Work Phone: Comment on above: Expected: 07/25/2021 , Expires: 09/24/2021 Start: 07-25-2021 End: 09-24-2021 TRYPTASE BLOOD [facility] Work Phone: Comment on above: Expected: 07/25/2021 , Expires: 09/24/2021 Start: 07-05-2021 End: 09-04-2021 Corticotropin [Mass/volume] in Plasma ACTH BLD Lab Routine Screening for endocrine disorder Expected: 07/05/2021, Expires: 09/04/2021 [facility] Work Phone: Comment on above: Expected: 07/05/2021 , Expires: 09/04/2021 Start: 07-05-2021 End: 09-04-2021 Cortisol [Mass/volume] in Serum or Plasma CORTISOL BLD Lab Routine Screening for endocrine disorder Expected: 07/05/2021, Expires: 09/04/2021 [facility] Work Phone: Comment on above: Expected: 07/05/2021 , Expires: 09/04/2021 Start: 07-01-2021 End: 08-31-2021 CBC W Ordered Manual Differential panel - Blood PATHOLOGIST INTERPRETATION WITH CBC AND DIFF Lab Routine Coagulopathy (HCC) 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HCC) Expected: 07/01/2021, Expires: 08/31/2021 [facility] Work Phone: Comment on above: Expected: 07/01/2021 , Expires: 08/31/2021 Start: 07-01-2021 End: 08-31-2021 Fibrinogen [Mass/volume] in Platelet poor plasma by Coagulation assay FIBRINOGEN Lab Routine Coagulopathy (HCC) 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HCC) Expected: 07/01/2021, Expires: 08/31/2021 [facility] Work Phone: Comment on above: Expected: 07/01/2021 , Expires: 08/31/2021 Start: 07-01-2021 End: 08-31-2021 FIBRINOGEN ANTIGEN FIBRINOGEN ANTIGEN Lab Routine Coagulopathy ([facility]) 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HCC) Expected: 07/01/2021, Expires: 08/31/2021 [facility] Work Phone: Comment on above: Expected: 07/01/2021 , Expires: 08/31/2021 Start: 07-01-2021 End: 08-31-2021 PLATELET AGGREGATION PANEL PLATELET AGGREGATION PANEL Lab Routine Coagulopathy (HCC) 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HCC) Expected: 07/01/2021, Expires: 08/31/2021 [facility] Work Phone: Comment on above: Expected: 07/01/2021 , Expires: 08/31/2021 Start: 07-01-2021 End: 08-31-2021 PLATELET FUNCTION SCREEN PLATELET FUNCTION SCREEN Lab Routine Coagulopathy ([facility]) 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HCC) Expected: 07/01/2021, Expires: 08/31/2021 [facility] Work Phone: Comment on above: Expected: 07/01/2021 , Expires: 08/31/2021 Start: 07-01-2021 End: 08-31-2021 THROMBOGRAPH HEPARINASE PANEL THROMBOGRAPH HEPARINASE PANEL Lab Routine Coagulopathy (HCC) 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HCC) Expected: 07/01/2021, Expires: 08/31/2021 [facility] Work Phone: Comment on above: Expected: 07/01/2021 , Expires: 08/31/2021 Start: 06-27-2021 End: 08-27-2021 Alpha tocopherol [Mass/volume] in Serum or Plasma VITAMIN E/TOCOPHEROL Lab Routine Muscle spasms of lower extremity, unspecified laterality Akathisia Expected: 06/27/2021, Expires: 08/27/2021 [facility] Work Phone: Comment on above: Expected: 06/27/2021 , Expires: 08/27/2021 Start: 06-27-2021 End: 08-27-2021 Ceruloplasmin [Mass/volume] in Serum or Plasma CERULOPLASMIN BLD Lab Routine Muscle spasms of lower extremity, unspecified laterality Akathisia Expected: 06/27/2021, Expires: 08/27/2021 [facility] Work Phone: Comment on above: Expected: 06/27/2021 , Expires: 08/27/2021 Start: 06-27-2021 End: 08-27-2021 CK CREATINE KINASE CK CREATINE KINASE Lab Routine Muscle spasms of lower extremity, unspecified laterality Akathisia Expected: 06/27/2021, Expires: 08/27/2021 [facility] Work Phone: Comment on above: Expected: 06/27/2021 , Expires: 08/27/2021 Start: 06-27-2021 End: 08-27-2021 COPPER, SERUM/PLASMA FREE COPPER, SERUM/PLASMA FREE Lab Routine Muscle spasms of lower extremity, unspecified laterality Akathisia Expected: 06/27/2021, Expires: 08/27/2021 [facility] Work Phone: Comment on above: Expected: 06/27/2021 , Expires: 08/27/2021 Start: 06-27-2021 End: 08-27-2021 FERRITIN BLD FERRITIN BLD Lab Routine Muscle spasms of lower extremity, unspecified laterality Akathisia Expected: 06/27/2021, Expires: 08/27/2021 [facility] Work Phone: Comment on above: Expected: 06/27/2021 , Expires: 08/27/2021 Start: 06-14-2021 End: 08-14-2021 Corticotropin [Mass/volume] in Plasma ACTH BLD Lab Routine Screening for endocrine disorder Expected: 06/14/2021, Expires: 08/14/2021 [facility] Work Phone: Comment on above: Expected: 06/14/2021 , Expires: 08/14/2021 Start: 06-14-2021 End: 08-14-2021 Cortisol [Mass/volume] in Serum or Plasma [facility] Work Phone: Comment on above: Expected: 06/14/2021 , Expires: 08/14/2021 Start: 06-14-2021 End: 08-14-2021 DHEA-S BLD [facility] Work Phone: Comment on above: Expected: 06/14/2021 , Expires: 08/14/2021 Start: 06-10-2021 End: 08-10-2021 APTT INCUBATED MIXING STUDY APTT INCUBATED MIXING STUDY Lab Routine Coagulopathy ([facility]) Expected: 06/10/2021, Expires: 08/10/2021 [facility] Work Phone: Comment on above: Expected: 06/10/2021 , Expires: 08/10/2021 Start: 06-10-2021 End: 08-10-2021 Coagulation factor IX activity actual/normal in Platelet poor plasma by Coagulation assay FACTOR IX:C ASSAY Lab Routine Coagulopathy ([facility]) Expected: 06/10/2021, Expires: 08/10/2021 [facility] Work Phone: Comment on above: Expected: 06/10/2021 , Expires: 08/10/2021 Start: 06-10-2021 End: 08-10-2021 Coagulation factor V activity actual/normal in Platelet poor plasma by Coagulation assay FACTOR V:C ASSAY Lab Routine Coagulopathy ([facility]) Expected: 06/10/2021, Expires: 08/10/2021 [facility] Work Phone: Comment on above: Expected: 06/10/2021 , Expires: 08/10/2021 Start: 06-10-2021 End: 08-10-2021 Coagulation factor VIII activity actual/normal in Platelet poor plasma by Coagulation assay FACTOR VIII:C ASSAY Lab Routine Coagulopathy ([facility]) Expected: 06/10/2021, Expires: 08/10/2021 [facility] Work Phone: Comment on above: Expected: 06/10/2021 , Expires: 08/10/2021 Start: 06-10-2021 End: 08-10-2021 Coagulation factor X activity actual/normal in Platelet poor plasma by Coagulation assay FACTOR X:C ASSAY Lab Routine Coagulopathy ([facility]) Expected: 06/10/2021, Expires: 08/10/2021 [facility] Work Phone: Comment on above: Expected: 06/10/2021 , Expires: 08/10/2021 Start: 06-10-2021 End: 08-10-2021 Coagulation factor XI activity actual/normal in Platelet poor plasma by Coagulation assay FACTOR XI:C ASSAY Lab Routine Coagulopathy ([facility]) Expected: 06/10/2021, Expires: 08/10/2021 [facility] Work Phone: Comment on above: Expected: 06/10/2021 , Expires: 08/10/2021 Start: 06-10-2021 End: 08-10-2021 PLATELET AGGREGATION PANEL PLATELET AGGREGATION PANEL Lab Routine Coagulopathy ([facility]) Expected: 06/10/2021, Expires: 08/10/2021 [facility] Work Phone: Comment on above: Expected: 06/10/2021 , Expires: 08/10/2021 Start: 06-10-2021 End: 08-10-2021 PLATELET FUNCTION SCREEN PLATELET FUNCTION SCREEN Lab Routine Coagulopathy ([facility]) Expected: 06/10/2021, Expires: 08/10/2021 [facility] Work Phone: Comment on above: Expected: 06/10/2021 , Expires: 08/10/2021 Start: 06-10-2021 End: 08-10-2021 Prothrombin activity actual/normal in Platelet poor plasma by Coagulation assay FACTOR II:C ASSAY Lab Routine Coagulopathy ([facility]) Expected: 06/10/2021, Expires: 08/10/2021 [facility] Work Phone: Comment on above: Expected: 06/10/2021 , Expires: 08/10/2021 Start: 06-10-2021 End: 08-10-2021 VON WILLEBRAND DX PANEL VON WILLEBRAND DX PANEL Lab Routine Coagulopathy (HCC) Expected: 06/10/2021, Expires: 08/10/2021 [facility] Work Phone: Comment on above: Expected: 06/10/2021 , Expires: 08/10/2021 Start: 05-25-2021 End: 05-25-2021 Patient encounter procedure 05/25/2021 Office Visit Pulmonology Armando Balderrama DO [address] [id number] [facility] Start: 02-28-2021 End: 02-28-2021 Patient encounter procedure 02/28/2021 Office Visit Pulmonology Fortunato Dean MD [address] [id number] [facility] Start: 02-05-2021 DEPRESSION ASSESSMENT DEPRESSION ASS ESSMENT [facility] Start: 10-06-2020 Influenza vaccination [facility] Start: 06-28-2020 End: 06-28-2020 Patient encounter procedure 06/28/2020 Office Visit Pulmonology Fortunato Dean MD [address] [phone] [facility] Start: 12-20-2018 Diabetes screen Diabetes screen [facility] Start: 03-17-2016 Screening for malign ant neoplasm of cervix Cervical cancer screen [facility] Work Phone: Start: 12-20-2013 HPV TESTING HPV TESTING [facility] Start: 12-20-2004 PAP TESTING PAP TESTING [facility] Start: 12-20-2002 DTaP/Tdap/Td vaccine (1 - Tdap) DTaP/Tdap/Td vaccine (1 - Tdap) [facility] Start: 12-20-2002 Hepatitis B vaccine (1 of 3 - Risk 3-dose series) Hepatitis B vaccine (1 of 3 - Risk 3-dose series) [facility] Start: 12-20-2002 Urine microalbumin profile DTAP,TDAP,TD (1 - Tdap) [facility] Start: 12-20-2001 ANNUAL PCP TEAM EXPERIMENTAL 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 MAEVE DISEASE VISIT ANNUAL PCP TEAM CHRONIC DISEASE VISIT [facility] Start: 12-20-2001 HEPATITIS C SCREENING HEPATITIS C [facility] Start: 12-20-2001 Hepatitis C screening Hepatitis C [facility] Start: 12-20-2001 HIV SCREENING HIV SCREENING [facility] Start: 12-20-2001 Urine screening for protein Diabetic Alb to Cr ratio (uACR) test [facility] Start: 1999 COVID-19 Vaccine (1) COVID-19 Vaccin e (1) [facility] [employer] Phone: Start: 12-20-1998 HIV screening HIV screen [facility] Start: 1995 COVID-19 Vaccine (1) COVID-19 Vaccin e (1) [facility] [employer] Phone: Start: 1995 Depression Screen Depression Screen [facility] Start: 12-20-1993 Diabetic foot examination Diabetic foot exam [facility] Start: 12-20-1993 Lipid panel Lipids [facility] Start: 12-20-1989 PNEUMOCOCCAL (1 - PCV) PNEUMOCOCCAL (1 - PCV) [facility] Start: 12-20-1989 Pneumococcal 0-64 ye ars Vaccine (1 - PCV) Pneumococcal 0-64 years Vaccine (1 - PCV) [facility] Start: 12-20-1989 Pneumococcal 0-64 ye ars Vaccine (1 of 2 - PPSV23) Pneumococcal 0-64 years Vaccine (1 of 2 - PPSV23) [facility] Start: 12-20-1988 COVID-19 VACCINE (#1) COVID-19 VACCI NE (#1) [facility] Start: 12-20-1988 COVID-19 Vaccine (1) COVID-19 Vaccin e (1) [facility] Start: 12-20-1984 Varicella vaccine (1 of 2 - 2-dose childhood series) Varicella vaccine (1 of 2 - 2-dose childhood series) [facility] Start: 06-19-1984 COVID-19 VACCINE (#1) COVID-19 VACCI NE (#1) [facility] Start: 1983 HEPATITIS B (1 of 3 - 3-dose series) HEPATITIS B (1 of 3 - 3-dose series) [facility] Start: 1983 Hepatitis C screening Hepatitis C sc reen [facility] ACTIGRAPHY TESTING ACTIGRAPHY TE STING Procedures Routine Shift work sleep disorder Poor sleep pattern 1 Occurrences starting 11/16/2021 [facility] Work Phone: Comment on above: 1 Occurrences starti ng 11/16/2021 Ambulatory bp mntr w /sw 24 hr+ rec scan ewa i&r AMBULATORY BP MONITORING Cardiology Routine Blood pressure instability Ordered: 07/21/2021 [facility] Work Phone: Comment on above: Ordered: 07/21/2021 Cardiovascular funct ion eval w/tilt table w/mntr TILT TABLE EVALUATION Cardiology Routine Palpitations Symptomatic bradycardia Orthostatic intolerance Ordered: 10/20/2021 [facility] Work Phone: Comment on above: Ordered: 10/20/2021 End: 07-21-2022 Echocardiography ECHO Cardiology Routine Symptomatic bradycardia Blood pressure instability History of COVID-19 1 Occurrences starting 07/21/2021 until 07/21/2022 [facility] Work Phone: Comment on above: 1 Occurrences starti ng 07/21/2021 until 07/21/2022 EKG 12 Lead EKG 12 Lead ECG STAT 11/01/2020 4:26 PM EDT [facility] Work Phone: EKG 12 Lead EKG 12 Lead ECG STAT 04/16/2021 8:11 PM EST [facility] Work Phone: EKG 12 Lead EKG 12 Lead ECG STAT 06/21/2021 12:06 AM EDT [facility] Work Phone: End: 10-19-2022 LUNG DIFFUSION CAPACITY (DLCO) LUNG DIFFUSION CAPACITY (DLCO) PFT Routine History of COVID-19 Post-acute sequelae of COVID-19 (PASC) SOB (shortness of breath) Chronic cough Chest discomfort Palpitation CAVANAUGH (dyspnea on exertion) Dizziness Near syncope Night sweats Orthopnea Anxiety Myalgia Pain in joint, multiple sites 1 Occurrences starting 09/19/2021 until 10/19/2022 [facility] Work Phone: Comment on above: 1 Occurrences starti ng 09/19/2021 until 10/19/2022 End: 10-19-2022 LUNG VOLUMES LUNG VOLUMES PFT Routine History of COVID-19 Post-acute sequelae of COVID-19 (PASC) SOB (shortness of breath) Chronic cough Chest discomfort Palpitation CAVANAUGH (dyspnea on exertion) Dizziness Near syncope Night sweats Orthopnea Anxiety Myalgia Pain in joint, multiple sites 1 Occurrences starting 09/19/2021 until 10/19/2022 [facility] Work Phone: Comment on above: 1 Occurrences starti ng 09/19/2021 until 10/19/2022 End: 01-05-2023 NITRIC OXIDE, EXHALED NITRIC OXIDE, EXHALED PFT Routine Moderate persistent asthma without complication SOB (shortness of breath) Post-acute sequelae of COVID-19 (PASC) 1 Occurrences starting 12/06/2021 until 01/05/2023 [facility] Work Phone: Comment on above: 1 Occurrences starti ng 12/06/2021 until 01/05/2023 OUTSIDE VENDOR CARDI AC OUTPATIENT EXTENDED RHYTHM RECORDING (WITHOUT TELEMETRY) OUTSIDE VENDOR CARDIAC OUTPATIENT EXTENDED RHYTHM RECORDING (WITHOUT TELEMETRY) Holter Routine Palpitations Symptomatic bradycardia Orthostatic lightheadedness Diffuse pain Blood pressure instability Decreased activity tolerance Orthostatic intolerance Moderate persistent asthma without complication Physical deconditioning Ordered: 10/20/2021 [facility] Work Phone: Comment on above: Ordered: 10/20/2021 End: 12-16-2022 PAP NAP PSG (CPAP, BILEVEL, ASV) PAP NAP PSG (CPAP, BILEVEL, ASV) Procedures Routine KATELIN on CPAP Poor compliance with CPAP treatment 1 Occurrences starting 11/16/2021 until 12/16/2022 [facility] Work Phone: Comment on above: 1 Occurrences starti ng 11/16/2021 until 12/16/2022 End: 12-16-2022 PAP TITRATION PSG (CPAP, BIPAP, ASV) PAP TITRATION PSG (CPAP, BIPAP, ASV) Procedures Routine KATELIN on CPAP 1 Occurrences starting 11/16/2021 until 12/16/2022 [facility] Work Phone: Comment on above: 1 Occurrences starti ng 11/16/2021 until 12/16/2022 End: 02-17-2022 PLATELET ELECT.MICRO MARIA C Gonzales [facility] Work Phone: Comment on above: Once for 1 Occurrenc es starting 02/17/2022 until 02/17/2022 End: 10-19-2022 Radiologic exam chest 2 views XR CHEST 2V FRONTAL/LAT Radiology Routine History of COVID-19 Post-acute sequelae of COVID-19 (PASC) SOB (shortness of breath) Chronic cough Chest discomfort Palpitation CAVANAUGH (dyspnea on exertion) Dizziness Near syncope Night sweats Orthopnea Anxiety Myalgia Pain in joint, multiple sites 1 Occurrences starting 09/19/2021 until 10/19/2022 [facility] Work Phone: Comment on above: 1 Occurrences starti ng 09/19/2021 until 10/19/2022 End: 10-19-2022 SIX MINUTE WALK SIX MINUTE WALK PFT Routine History of COVID-19 Post-acute sequelae of COVID-19 (PASC) SOB (shortness of breath) Chronic cough Chest discomfort Palpitation CAVANAUGH (dyspnea on exertion) Dizziness Near syncope Night sweats Orthopnea Anxiety Myalgia Pain in joint, multiple sites 1 Occurrences starting 09/19/2021 until 10/19/2022 [facility] Work Phone: Comment on above: 1 Occurrences starti ng 09/19/2021 until 10/19/2022 SIX MINUTE WALK SIX MINUTE WALK PFT Routine History of COVID-19 Post-acute sequelae of COVID-19 (PASC) SOB (shortness of breath) Chronic cough Chest discomfort Palpitation CAVANAUGH (dyspnea on exertion) Dizziness Near syncope Night sweats Orthopnea Anxiety Myalgia Pain in joint, multiple sites 09/27/2021 8:23 AM EDT [facility] Work Phone: End: 10-19-2022 SPIROMETRY - BASELINE AND POST DILATOR SPIROMETRY - BASELINE AND POST DILATOR PFT Routine History of COVID-19 Post-acute sequelae of COVID-19 (PASC) SOB (shortness of breath) Chronic cough Chest discomfort Palpitation CAVANAUGH (dyspnea on exertion) Dizziness Near syncope Night sweats Orthopnea Anxiety Myalgia Pain in joint, multiple sites 1 Occurrences starting 09/19/2021 until 10/19/2022 [facility] Work Phone: Comment on above: 1 Occurrences starti ng 09/19/2021 until 10/19/2022 End: 01-05-2023 SPIROMETRY - BASELINE AND POST DILATOR SPIROMETRY - BASELINE AND POST DILATOR PFT Routine Moderate persistent asthma without complication SOB (shortness of breath) Post-acute sequelae of COVID-19 (PASC) 1 Occurrences starting 12/06/2021 until 01/05/2023 [facility] Work Phone: Comment on above: 1 Occurrences starti ng 12/06/2021 until 01/05/2023 End: 10-19-2022 Us chest real time w/image documentation US CHEST WALL/SOFT TISSUE Radiology Routine Post-acute sequelae of COVID-19 (PASC) Mass of left axilla 1 Occurrences starting 09/19/2021 until 10/19/2022 [facility] Work Phone: Comment on above: 1 Occurrences starti ng 09/19/2021 until 10/19/2022 End: 09-15-2022 Us pelvic nonobstetric image dcmtn limited/f/u US PELVIS LTD Radiology Routine Chronic RLQ pain 1 Occurrences starting 08/16/2021 until 09/15/2022 [facility] Work Phone: Comment on above: 1 Occurrences starti ng 08/16/2021 until 09/15/2022 End: 09-14-2022 US SOFT TISSUE ABDOMEN US SOFT TISSUE ABDOMEN Radiology Routine Chronic RLQ pain 1 Occurrences starting 08/15/2021 until 09/14/2022 [facility] Work Phone: Comment on above: 1 Occurrences starti ng 08/15/2021 until 09/14/2022 [facility] Immunizations Immunization Date Immunization Notes Care Provider [facility] 11-20-2019 influenza virus vaccine, unspecified formulation Araseli Barrett MD Work Phone: [facility] Work Phone: 11-20-2019 influenza, unspecifi ed formulation LORAINE RUBALCAVA [facility] 11-06-2019 influenza virus vaccine, unspecified formulation LORAINE RUBALCAVA [facility] 11-06-2019 influenza, high dose seasonal, preservative-free Yan Bass MD Work Phone: [facility] 10-27-2019 influenza virus vaccine, unspecified formulation LORAINE RUBALCAVA [facility] 10-27-2019 influenza, injectabl e, quadrivalent, preservative free Yan Bass MD Work Phone: [facility] Payers Date Payer Category Payer Unknown [id number]. [id number] 2022 Unknown [id number] 2022 Unknown [id number] 2014 Unknown MMO MMO [employer] [id number] 2014-Present [phone] [address] [place] [address] PPO [id number] [id number].3. [id number] 2014 Unknown [id number]. 1.13.159.2.7.3. [id number] 1983 Unknown [id number] 2.16.840.1.732721.3.579.2.174 1983 Unknown [id number] 2.16.840.1.847015.3.579.2.174 1983 Unknown [id number] 2.16.840.1.577518.3.579.2.175 1983 Unknown [id number] 2.16.840.1.837850.3.579.2.593 1983 Unknown [id number] 2.16.840.1.850514.3.579.2.593 1983 Unknown [id number] 2.16.840.1.297620.3.579.2.593 1983 Unknown [id number] 2.16.840.1.089181.3.579.2.593 1983 Unknown [id number] 2.16.840.1.180864.3.579.2.593 1983 Unknown [id number] 2.16.840.1.565731.3.579.2.593 1983 Unknown [id number] 2.16.840.1.246819.3.579.2.593 1983 Unknown [id number] 2.16.840.1.944531.3.579.2.593 1983 Unknown [id number] 2.16.840.1.947134.3.579.2.593 1983 Unknown [id number] 2.16.840.1.495366.3.579.2.593 1983 Unknown [id number] 2.16.840.1.704765.3.579.2.593 1983 Unknown [id number] 2.16.840.1.369308.3.579.2.593 1983 Unknown [id number] 2.16.840.1.817536.3.579.2.173 1983 Unknown [id number] 2.16.840.1.047984.3.579.2.173 1983 Unknown [id number] 2.16.840.1.824120.3.579.2.173 1983 Unknown [id number] 2.16.840.1.386315.3.579.2.173 1983 Unknown [id number] 2.16.840.1.842566.3.579.2.173 1983 Unknown [id number] 2.16.840.1.475389.3.579.2.173 1983 Unknown [id number] 2.16.840.1.090723.3.579.2.196 1983 Unknown [id number] 2.16.840.1.225610.3.579.2.196 1983 Unknown [id number] 2.16.840.1.018750.3.579.2.196 1983 Unknown [id number] 2.16.840.1.204037.3.579.2.196 1983 Unknown [id number] 2.16.840.1.478295.3.579.2.196 1983 Unknown [id number] 2.16.840.1.060759.3.579.2.727 1983 Unknown [id number] 2.16.840.1.711090.3.579.2.727 1983 Unknown [id number] 2.16.840.1.291219.3.579.2.727 1983 Unknown [id number] 2.16.840.1.071542.3.579.2.727 1983 Unknown [id number] 2.16.840.1.420045.3.579.2.727 1983 Unknown [id number] 2.16.840.1.762521.3.579.2.1259 1959 Unknown [id number] 1.2.840.786694.1.13.239.2.7.3. [id number] 1959 Unknown [id number] 1.2.840.550609.1.13.239.2.7.3. [id number] Social History Date Type Detail Facility Start: 06-13-2020 End: 11-03-2021 Tobacco smoking status [facility] Never smoker [facility] Phone: Start: 06-13-2020 End: 01-10-2022 Alcohol intake Current non-drinker of alcohol (finding) [facility] Phone: Start: 1985 Sex Assigned At Not on file [facility] [email or web address] Phone: Start: 05-10-2021 End: 01-30-2022 Exposure to SARS-CoV-2 (event) Not sure [facility] Start: 08-30-2020 End: 11-03-2021 Tobacco use and exposure Never used [facility] Start: 05-24-2021 End: 07-01-2021 Alcohol intake Current drinker of alcohol (finding) [facility] Start: 02-23-2014 History SDOH Alcohol Comment rarely uses alcohol [facility] Start: 1985 Sex Assigned At Female [facility] Start: 07-22-2021 End: 10-02-2022 Alcohol intake Ex-drinker (finding) [facility] Start: 09-17-2021 End: 09-27-2021 Exposure to SARS-CoV-2 (event) Unable to assess [facility] History of tobacco use Passive smoker [facility] Tobacco smoking status Never [facility] Start: 09-30-2022 End: 10-02-2022 Sex Assigned At Female [facility] Start: 09-30-2022 End: 10-02-2022 History of Social function [facility] Start: 09-26-2020 Gender identity Identifies as female gender (finding) [facility] Start: 09-26-2020 Sexual orientation Heterosexual (norma xie) [facility] Functional Status Date Assessment Result Facility 09-05-2022 Functional Status N/A [facility] 02-28-2022 Functional Status N/A [facility] 01-20-2022 Functional Status N/A [facility] 2021 Functional Status N/A [facility] Clinical Notes 09-06-2020 to 01-10-2023 Patient InstructionsAbFuentes abbott MD - 10/02/2022 9:45 AM EDTTelephone Encounter - Yury Collins MA - 05/03/2022 11:43 AM Bryanna Saldana PA-C - 04/26/2022 1:00 PM EDTPatient Instructions Note Date & Type Note Facility 01-10-2023 Note 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 Hx Cesar autoimmune thyroid disease, celiac disease. 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 I saw Leana in follow up November 2022. After this, URI in November and December 2022 she had a upper respiratory infection. BP dropped to 80/40mmhg. But recently BP is stable. In December she experienced an episode of chest pain associated with cough and went to [facility] (12/18/2022). She was treated for bronchitis. She has history of asthma. She saw Angelika Coronel APRN in the [facility] as an ED follow up on 12/26/2022. At that visit she complained of dizziness, near syncope and sharp left CP radiation to shoulder. Chief Complaint: Orthostatic intolerance. Dizziness and lightheaded. 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 Last syncope (full) August 2021. Review of Systems Cardiovascular: Positive for near-syncope. Negative for syncope. Neurological: Positive for dizziness and light-headedness. Psychiatric/Behavioral: Positive for depression. The patient has insomnia. Objective Vitals reviewed. Constitutional: Appearance: Healthy appearance. Not in distress. Neck: Vascular: No JVR. JVD normal. Pulmonary: Effort: Pulmonary effort is normal. Breath sounds: Normal breath sounds. No wheezing. No rhonchi. No rales. Chest: Chest wall: Not tender to palpatation. Cardiovascular: PMI at left midclavicular line. Normal rate. Regular rhythm. Normal S1. Normal S2. Murmurs: There is no murmur. No gallop. No click. No rub. Pulses: Intact distal pulses. Edema: Peripheral edema absent. Abdominal: General: Bowel sounds are normal. Palpations: Abdomen is soft. Tenderness: There is no abdominal tenderness. Musculoskeletal: Normal range of motion. General: No tenderness. Skin: General: Skin is warm and dry. Neurological: General: No focal deficit present. Mental Status: Alert and oriented to person, place and time. Assessment/Plan The primary encounter diagnosis was Autonomic dysfunction. Diagnoses of Chronic [id number] syndrome, Implantable loop recorder present, Orthostatic intolerance, and Postural dizziness with near syncope were also pertinent to this visit. Problem List Items Addressed This Visit Nervous Autonomic dysfunction Relevant Medications pyridostigmine (Mestinon) 180 mg ER tablet Orthostatic intolerance Relevant Orders Ambulatory referral to Physical Therapy Circulatory Implantable loop recorder present Other Chronic [id number] syndrome Other Visit Diagnoses Postural dizziness with near syncope - Primary Relevant Orders Ambulatory referral to Physical Therapy OI exacerbation post back to back respiratory infections. Stop short acting pyridostigmine. Add TS 180 mg daily. Physical therapy. Monitor HR and BP RTC 6-12 months. [facility] 01-04-2023 Note Chief Complaint consultation for GERD HPI Staff 37 year old female presents on consultation from Dr. Dowell for GERD. Taking Protonix 40mg daily x 6 months. Reports some sternal chest pain, bloating and sour taste in mouth. 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 Reports EGD greater than 10 years ago with gastric ulcer and H.pylori infection. History of Present Illness 37 yo female with h/o DMII, asthma, hypothyroidism, KATELIN, anxiety/depression; referred for worsening GERD; patient reports frequent bloating and epigastric pain radiating into chest, some regurgitation; no dysphagia; sees a Technical Solutions Engineer that feels her frequent lung infections are related to GERD; on Protonix daily for 6 months with no improvement; patient had EGD and colonoscopy in 2009 that revealed mild esophagitis, normal colon; abdominal operations significant for cholecystectomy, appendectomy, , tubal ligation, GINA; patient denies asa or NSAID use; no tobacco use. Review of Systems PHQ Score Initial Depression Screen Score: 0 SCORE ROS - Provider Constitutional: no fever, no sweats, no weight loss. Eyes: no glasses, no blurred vision, no visual loss. ENMT: no dentures, no hoarseness, no swallowing difficulties, no hearing loss, no ear infection(s), no nose bleeds. Cardiovascular: normal blood pressure, no chest pain, regular heartbeat, no heart murmur. Respiratory: no shortness of breath, no cough, no asthma, no wheezing. Gastrointestinal: no nausea, no vomiting, no diarrhea, no constipation, no blood in stool, no change in bowel habits, no abdominal pain, no hepatitis. Genitourinary: no kidney stones, no urine infection, no dysuria. Musculoskeletal: no pain, no weakness. Skin: no changing moles, no rash, no skin lumps. Neurologic: no seizures, no epilepsy, no headache. Psychiatric: no emotional or psychiatric problem. Heme/Lymph: no bleeding problems, no anemia, no blood clots, no transfusions. Allergy/Immunologic: no swollen lymph nodes/glands, no IV drug abuse. Other: Additional ROS info: Except as noted in the above Review of Systems and in the History of Present Illness, all other systems have been reviewed and are negative or noncontributory. Physical Exam Vitals & Measurements HR: 93(Peripheral) RR: 16 BP: 123/81 HT: 64 in HT: 162 cm WT: 100.5 kg WT: 221.1 lb BMI: 38.29 HEENT: normal conjunctiva, sclera clear, no scleral icterus, EOM intact, PERRLA, oral mucosa moist without lesions. Neck: trachea midline, no mass, symmetric, no thyromegaly or nodules, no adenopathy Respiratory: lungs CTA, respirations non labored. Cardiovascular: regular rate and rhythm, no murmur, no pedal edema or varicosities. Gastrointestinal: obese, soft, non distended, no tenderness, no masses, no palpable hernias, diastasis recti no, no hepatosplenomegaly; normal bs Lymphatic: no cervical adenopathy, no supraclavicular adenopathy. Musculoskeletal: normal gait, digits and nails without infection, nodes, cyanosis, clubbing. Skin: no rashes, no lesions, no ulcers, no subcutaneous nodules, induration. Psychiatric/Neuro: oriented to time, place, person, judgement normal, affect appropriate for age, insight intact, no focal deficits. Tests: , review of old records completed , Discussed surgical options, risks, and possible complications with patient. Assessment/Plan 1. GERD (gastroesophageal reflux disease) (K21.9: Gastro-esophageal reflux disease without esophagitis) plan EGD under anesthesia, informed consent obtained. 2. BMI 38.0-38.9,adult (Z68.38: Body mass index [BMI] 38.0-38.9, adult) recommend diet and exercise. Follow-up No qualifying data available Problem List/Past Medical History Ongoing Abnormal urine sediment Angiomyolipoma Anxiety and depression Arachnoid cyst Asthma BMI 38.0-38.9,adult Dyspareunia in female GERD (gastroesophageal reflux disease) Gross hematuria Hypothyroidism Insomnia Kidney stone Metabolic syndrome Morbid obesity Myoclonic jerking Obstructive sleep apnea syndrome Ovarian cyst Paresthesia Peripheral edema Platelet dysfunction Right inguinal hernia Stress incontinence Thyroid nodule Type 2 diabetes mellitus Urethral stricture Vitamin D deficiency Historical No qualifying data Procedure/Surgical History Cystourethroscopy with dilation of urethral stricture (01/23/2022), Abdominal hysterectomy (03/17/2019), Salpingectomy (03/17/2019), Laparoscopic cholecystostomy (04/08/2009), Appendectomy, delivery, Colonoscopy, EGD - esophagogastroduodenoscopy, Endometrial ablation, Insertion of electrocardiography loop recorder using fluoroscopic guidance, Laparoscopic lysis of adhesions, Nasal septoplasty, Tubal ligation, Tympanostomy. Medications Ajovy Autoinjector, 225 mg, SubCutaneous, qMonth baclofen, 10 mg, Oral, TID Cymbalta 60 mg Cap-DR, 60 mg, Oral, Daily EpiPen 2-Erma Flonase Allergy Relief 50 mcg/inh madeline (more content not included)... [facility] Comment on above: Result Comment: Elec tronically Signed By: MARLON PEREZ, Tesfaye Richard\Date and Time Signed: 01/04/23 11:41 EST 01-01-2023 Note [facility] Consult Note Reason for visit: s/p loop insertion for syncope, hospital follow up for CP / cough 01/01/23: patient for follow-up, she been having symptoms of postural dizziness with near syncope she has history of dysautonomia typically sees her dysautonomia clinic she was recently seen at [facility] for chest pain loop monitor has not shown any significant arrhythmia 07/04/22 HPI: Leana Tran is a 37 y.o. year old with past medical history of syncope and is being seen by Dr. Cronin. recent loop monitor placed. Wound appears to be healing well with no concerns of infection, erythema, drainage. Insertion site palpated no concern for abscess. She denies aches, chills, fever. 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 Chief Complaint: Dysautonomia Not to belabor past history but Leana reports relatively healthy childhood. Asthma. Recurrent upper respiratory, ear, sinus infections in childhood. Menses began age 7. + PCOS. Pregnancies: 3 children. Pseudotumor cerebri; diamox. LP. Developed migraines after the LP. Lost weight. 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 Burst a few years ago . Cesar: 2020 Anxiety/ depression / PTSD; has psychiatrist HPI: Age 12 fatigue, episodes of blackouts. Saw cardiology age 14. Stopped control due to legs turning black and thought due to microclots . No syncope. Doing well. After Covid infection (hospitalized one week/pneumonia) 2020 began to experience sinus bradycardia. consulted and told needed a PPM . Transferred to [facility] and saw Dr. Michaud, performance improvement coordinator. Echocardiogram done (?inflammation). Discharged. Referred by Covid Clinic at [facility]. Told had autonomic issues PMH: Past Medical History: Diagnosis Date Asthma 1999 Clotting disorder ([facility]) 1983 Diabetes mellitus ([facility]) 2020 Disease of thyroid gland 2006 PSH: No past surgical history on file. SH: Social Determinants of Health Tobacco Use: Low Risk (11/14/2022) Patient History Smoking Tobacco Use: Never Smokeless Tobacco Use: Never Passive Exposure: Never Alcohol Use: Not on file Financial Resource Strain: Not on file Food Insecurity: Not on file Transportation Needs: Not on file Physical Activity: Sufficiently Active (07/21/2022) Exercise Vital Sign Days of Exercise per Week: 7 days Minutes of Exercise per Session: 30 min Stress: Not on file Social Connections: Not on file Intimate Partner Violence: Not At Risk (07/21/2022) Humiliation, Afraid, Rape, and Kick questionnaire Fear of Current or Ex-Partner: No Emotionally Abused: No Physically Abused: No Sexually Abused: No Depression: Not at risk (11/14/2022) PHQ-2 PHQ-2 Score: 2 Housing Stability: Not on file Allergies: Allergies Allergen Reactions Cefaclor Anaphylaxis, Shortness of breath and Swelling Other reaction(s): Unknown, Unknown Other reaction(s): Unknown Other reaction(s): Unknown Cefuroxime Axetil Rash and Shortness of breath Clindamycin Rash, Shortness of breath and Swelling Other reaction(s): Unknown, Unknown Eucalyptus Anaphylaxis Iodides Anaphylaxis Iodinated Contrast Media Anaphylaxis Other reaction(s): Unknown Does not tolerate with pre-medication Tolerated with pre-medication on 09/22/21 Other reaction(s): Unknown Does not tolerate with pre-medication Lavender (Lavandula Angustifolia) Anaphylaxis Macrolide Antibiotics Shortness of breath and Swelling Other reaction(s): Allergy, Unknown, Unknown Sulfa (Sulfonamide Antibiotics) Shortness of breath and Swelling Other reaction(s): Unknown Other reaction(s): Unknown Sulfamethoxazole-Trimethoprim Other reaction(s): Other Cant breathe Valacyclovir Anaphylaxis and Shortness of breath Fish Containing Products Hives Ibuprofen Rash Other reaction(s): Unknown, Unknown Due to clotting disorder-Aleve Due to clotting disorder-Aleve Shellfish Derived Hives Ambien [Zolpidem] Bupropion Other reaction(s): Other (See Comments) Reports like seizure activity and the fall asleep Reports like seizure activity and the fall asleep Dimethicone Drospirenone-Ethinyl Estradiol Other reaction(s): Other: See Comments Makers her asthma flair up Other reaction(s): Other: See Comments Skin discoloration of feet with OCPs Skin discoloration of feet with OCPs Makers her asthma flair up Erythromycin Gatifloxacin Diarrhea Gloves, Latex With Aloe Vera Other reaction(s): Unknown Iodine Other reaction(s): Unknown Menthol Hives Naproxen Other reaction(s): Angioedema Norethindrone Ac-Eth Estradiol Chest hurt (more content not included)... [facility] 01-01-2023 Note Patient here for follow up [facility] 2 w eeks ago for chest pain. Still having episodes of lightheadedness and near syncope. Chest pain feels sharp and goes into her left shoulder. Gets SOB and nauseous with episodes also. Review of Systems Cardiovascular: Positive for chest pain, dyspnea on exertion, irregular heartbeat and near-syncope. Respiratory: Positive for shortness of breath. Musculoskeletal: Positive for back pain. Gastrointestinal: Positive for nausea. All other systems reviewed and are negative. 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 Hx Cesar autoimmune thyroid disease. She underwent an implantable loop recorder for [facility] cardiac rhythm monitoring due to syncope in June 2022. She failed bupropion. We then added pyridostigmine in July. Chief Complaint: Improved on pyridostigmine. Improved strength. No nausea or diarrhea. Less dizziness. No syncope. Some near syncope. 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 No sustained palpitations. Irregular rate, variable. She has recently started Synthroid. She has not used symptom button on ILR. Review of Systems Constitutional: Negative for malaise/fatigue. Cardiovascular: Positive for irregular heartbeat and near-syncope. Negative for syncope. Very rare near syncope. No sustained palpitations. Neurological: Negative for dizziness, focal weakness, headaches, light-headedness and weakness. Objective Constitutional: Appearance: Healthy appearance. Not in distress. Neurological: Mental Status: Alert and oriented to person, place and time. Assessment/Plan The primary encounter diagnosis was Autonomic dysfunction. Diagnoses of Chronic mocu-PEEUP-75 syndrome and Syncope and collapse were also pertinent to this visit. Date of Telehealth Visit: The patient was notified that using 3rd green party telecommunication application (e.g., [employer]) is not HIPPA compliant and may carry some privacy risks. The visit was conducted [id number]-arly with the use of audio and video technology between patient and provider for a virtual visit. Verbal consent to provide and bill this service was obtained on . No signature was obtained due to the COVID-19 pandemic. Patient Location: I spent 15 minutes of total time on the day of the visit. This time was spent preparing for the visit, obtaining and reviewing any outside history/data, taking a history, performing an exam/evaluation, counseling and educating patient/family about the diagnosis and plan, performing medical decision making, referring to and communicating with other health care referrals, independently interpreting results and documenting in the EMR, and coordinating care. Please see the additional documentation in this note for specific details. 1. Autonomic dysfunction Good response to pyridostigmine without ill effects 2. Chronic [id number] syndrome 3. Syncope and collapse No syncope Continue to monitor with ILR. Discussed use of symptom recordings to help identify any rhythm associated with her symptoms RTC yearly [facility] 10-02-2022 Note HNO ID: [id number] Author: Fuentes Amaral MD Service: ? Author Type: Physician Type: Progress Notes Filed: 10/02/2022 9:55 AM Note Text: HEMATOLOGY FOLLOW UP October 02, 2022 ([place]) Some elements in this clinic note that are critical to medical decision making have been carefully reviewed and included from a prior clinic note dated:April 17, 2022 ([place]) AND April 03, 2022 ([place]) PCP and other physicians involved in patient's care: Cas Dowell (PCP), Rajinder Collins (surgery), Rubens Tim (ObGyn), DIAGNOSIS: Undiagnosed bleeding disorder, work-up pending - transition of care. 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 She has had multiple surgical, obstetric, gynecologic, and dental procedures in the past. Some of these procedures have been associated with postoperative bleeding complications. Patient also has multiple bleeding issues such as easy gum bleeding on a regular basis. Her family history is unclear given that she was adopted but one of her sons has symptoms similar to her's (recurrent epistaxis and easy gum bleeding). Work-up for bleeding disorder in May 2021 showed an abnormal platelet aggregometry. There was mildly decreased aggregation to low dose ADP, collagen, and arachidonic acid but normal aggregation to high dose ADP and epinephrine (low and high dose). These findings were considered to be nonspecific. Patient does not take any aspirin or NSAIDs. 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 She has seen medical genetics and work-up is ongoing pending insurance authorization. Based on her previous surgical experiences, any surgical bleeding may be minimized by using FFP and platelet transfusions prior to the procedure. Follow up after genetics work-up is complete which she was encouraged to pursue. Additional constitutional symptoms will need additional workup. Reviewed Mammography showing axillary tail lymph nodes. They appeared benign and today's exam was normal. If she remains concerned, we can re-examine her and set up a breast MRI. Continue follow up with Dr. Stephon Cronin's group for POTS Now on Mestanon PLAN: Continue Amicar prior to dental extraction FFP for major surgery. RTC in 12 months - cbc, cmp HPI: Patient has an extensive and longstanding history of bleeding issues. In 2008, she was seen by Dr. Shirley and was noted to have an elevated PTT of 36 seconds. This corrected by addition of FFP. 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 She reportedly tested negative for von Willebrand disease. Some of these labs have been scanned in our EMR (2011). Previous bleeding history includes menorrhagia (endometrial ablation in 2014 for which she needed FFP and hysterectomy in 2019 [unclear whether she got FFP]), epistaxis since childhood (resolved after sinus surgery in 2010), gum bleeding on a daily basis with minimal trauma, and a recent episode of bright red blood per rectum in March 2021 (no EGD or colonoscopy). Previous dental procedures include cavity fillings. It is unclear whether she had any bleeding issues after that procedure. She has had 2 normal vaginal deliveries with hemorrhage but patient does not remember if any medical or surgical intervention was done. She had a during her third and reports that the surgery took longer than anticipated. Referred to me in May 2021 for pre-operative clearance prior to elective inguinal hernia repair May 2021, PT 10 seconds, PTT 32.7 seconds, activity levels of factors II, V, IX, X, XI; activity levels of factor VIII elevated; no evidence of von Willebrand's disease; platelet function screen normal; platelet aggregometry notable showed mildly decreased aggregation to low dose ADP, collagen, and arachidonic acid but normal aggregation to high dose ADP and epinephrine (low and high dose). There was a normal stimulated dense granule release to all agonists. The ristocetin induced platelet aggregation showed a normal dose response. Overall, these findings were non-specific. July 2021, above labs repeated with the same result; TEG normal; fibrinogen antigen normal Updated Visit, October 02, 2022: Had a number of teeth removed. Amicar worked for her wisdom tooth but she didn't take it for more recent extractions and it sounds like they needed to use extra doses of thrombin (patient is not sure). Suggested that she use Amicar with next attempt. Updated Visit, April 17, 2022: Telephone encounter Platelet transmission electron microscopy (PTEM) studies demonstrate essentially normal dense granules, alpha granules and other ultra-structures. No abnormal inclusions identified. Updated Visit, April 03, 2022: Leana returns. Continues to have mild bruising on legs and arms. Figers an (more content not included)... [facility] 10-02-2022 Instruction s Fuentes Amaral MD - 10/02/2022 9:51 AM EDT Continue Amicar prior to dentist appointment. RTC in 12 months - cbc, cmp documented in this encounter [facility] 10-02-2022 History of Present illness Narrative Formatting of this note might be differe nt from the original. Images from the original note were not included. HEMATOLOGY FOLLOW UP October 02, 2022 (Munir) Some elements in this clinic note that are critical to medical decision making have been carefully reviewed and included from a prior clinic note dated:April 17, 2022 (Munir) & April 03, 2022 (Munir) PCP and other physicians involved in patient's care: Cas Dowell (PCP), Rajinder Collins (surgery), Rubens Tim (ObGyn), DIAGNOSIS: Undiagnosed bleeding disorder, work-up pending - transition of care. 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 She has had multiple surgical, obstetric, gynecologic, and dental procedures in the past. Some of these procedures have been associated with postoperative bleeding complications. Patient also has multiple bleeding issues such as easy gum bleeding on a regular basis. Her family history is unclear given that she was adopted but one of her sons has symptoms similar to her's (recurrent epistaxis and easy gum bleeding). Work-up for bleeding disorder in May 2021 showed an abnormal platelet aggregometry. There was mildly decreased aggregation to low dose ADP, collagen, and arachidonic acid but normal aggregation to high dose ADP and epinephrine (low and high dose). These findings were considered to be nonspecific. Patient does not take any aspirin or NSAIDs. 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 She has seen medical genetics and work-up is ongoing pending insurance authorization. Based on her previous surgical experiences, any surgical bleeding may be minimized by using FFP and platelet transfusions prior to the procedure. Follow up after genetics work-up is complete which she was encouraged to pursue. Additional constitutional symptoms will need additional workup. Reviewed Mammography showing axillary tail lymph nodes. They appeared benign and today's exam was normal. If she remains concerned, we can re-examine her and set up a breast MRI. Continue follow up with Dr. Stephon Cronin's group for POTS Now on Mestanon PLAN: Continue Amicar prior to dental extraction FFP for major surgery. RTC in 12 months - cbc, cmp HPI: Patient has an extensive and longstanding history of bleeding issues. In 2008, she was seen by Dr. Shirley and was noted to have an elevated PTT of 36 seconds. This corrected by addition of FFP. 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 She reportedly tested negative for von Willebrand disease. Some of these labs have been scanned in our EMR (2011). Previous bleeding history includes menorrhagia (endometrial ablation in 2014 for which she needed FFP and hysterectomy in 2019 [unclear whether she got FFP]), epistaxis since childhood (resolved after sinus surgery in 2010), gum bleeding on a daily basis with minimal trauma, and a recent episode of bright red blood per rectum in March 2021 (no EGD or colonoscopy). Previous dental procedures include cavity fillings. It is unclear whether she had any bleeding issues after that procedure. She has had 2 normal vaginal deliveries with hemorrhage but patient does not remember if any medical or surgical intervention was done. She had a C- section during her third and reports that the surgery took longer than anticipated. Referred to me in May 2021 for pre-operative clearance prior to elective inguinal hernia repair May 2021, PT 10 seconds, PTT 32.7 seconds, activity levels of factors II, V, IX, X, XI; activity levels of factor VIII elevated; no evidence of von Willebrand's disease; platelet function screen normal; platelet aggregometry notable showed mildly decreased aggregation to low dose ADP, collagen, and arachidonic acid but normal aggregation to high dose ADP and epinephrine (low and high dose). There was a normal stimulated dense granule release to all agonists. The ristocetin induced platelet aggregation showed a normal dose response. Overall, these findings were non-specific. July 2021, above labs repeated with the same result; TEG normal; fibrinogen antigen normal Updated Visit, October 02, 2022: Had a number of teeth removed. Amicar worked for her wisdom tooth but she didn't take it for more recent extractions and it sounds like they needed to use extra doses of thrombin (patient is not sure). Suggested that she use Amicar with next attempt. Updated Visit, April 17, 2022: Telephone encounter Platelet transmission electron microscopy (PTEM) studies demonstrate essentially normal dense granules, alpha granules and other ultra-structures. No abnormal inclusions identified. Updated Visit, April 03, 2022: Leana returns. Continues to have mild bruising on legs and arms. Figers and ankles feel swollen. TSH 0.08 - adjusting meds. Seeing POTS clinic tomorrow. Getting an US of kidney for possible mass repeated scheduled in August. Platelet microscopy pending still. Updated Visit, February 10, 2022: Leana's platelet genetic testing is unremarkable. She has multiple complaints of bruising on her breasts. Endorsing Breasts have bruises without contact, nipples change color for no reason. Getting random rashes Breaking out in sweats Getting sick frequently. Has had workup for POTS in the past but no recommendations. Updated Visit, November 18, 2021: Leana is 35 and comes in after we discussed her mammogram results showing what appears to be benign lymph nodes. Chaperoned breast exam noted below. Discussion on lack of findings - tender bilateral axillary exam but no palpable masses. Discussion and education on continued hormonal cycles continuing despite hysterectomy causing breast changes. Will consider MRI breast is future if needed. 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 Her step-father has also . Updated Visit, November 10, 2021: Leana is 35 yo and is having genetic testing done to ascertain a genetic platelet disorder. However, she had a Mammogram recently that was concerning for lymphadenopathy. I was unable to get the report myself and so she gave me some of the information over the telephone. She has some benign Lymph nodes noted on mammogram. She would like to have a breast exam to allay anxiety. Updated Visit, November 03, 2021: Transition of care Drenching night sweats - had COVID 10/2020 - sweats started in August, developed T2DM after COVID. Random rashes - red and blotchy circles. Swollen lymph node - not palpable On frequent prednisone tapers every month Mammograms last week 10/19/2021 - LN's noted on them. Will evaluate this further. 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 Patient is adopted and does not know her family history well. She has 3 boys who are relatively healthy. Her oldest son (age 16 years) has similar bleeding symptoms including easy gum bleeding and epistaxis as the patient. No substance abuse. MEDICATIONS AND ALLERGIES: Reviewed PHYSICAL EXAM BP 140/79 Pulse (!) 58 Temp 36.5 C (97.7 F) (Temporal) Resp 16 Ht 162.6 cm (5' 4.02 ) Wt 100.2 kg (220 lb 12.8 oz) LMP 2015 SpO2 99% BMI 37.88 kg/m Exam limited to gross visualization where appropriate due to COVID-19. Gen.: This is an age-appropriate patient in no acute distress. Head: Appears atraumatic with no visible lesions. Eyes: Pupils equally round and reactive to light, extraocular muscles are intact. Neck: Supple. Mouth: Masked. Respiratory: Appears to be respiring comfortably. Neurologic: Nonfocal to gross visualization. Alert and oriented 3. Psychiatric: No evidence of inappropriate anxiety or depression. Skin: Visible areas of skin without rash, lesions, wounds or petechiae. Prior exam for reference. Chaperoned (Jairo Perdomo) Breast exam - normal bilaterally - no LAD - no significant difference in nipple areola - although right is slightly darker than left. She was tender to deep palpation of both axilla and the axillary tail of her left breast. LABORATORY, IMAGING AND PATHOLOGY May 2021 PT 10 seconds, PTT 32.7 seconds, activity levels of factors II, V, IX, X, XI; activity levels of factor VIII elevated; no evidence of von Willebrand's disease Platelet function screen normal Platelet aggregometry notable showed mildly decreased aggregation to low dose ADP, collagen, and arachidonic acid but normal aggregation to high dose ADP and epinephrine (low and high dose). There was a normal stimulated dense granule release to all agonists. The ristocetin induced platelet aggregation showed a normal dose response. Overall, these findings were non-specific July 2021 Fibrinogen antigen 380 Fibrinogen activity 390 TEG normal Platelet aggregometry abnormal with a nonspecific pattern I spent a total of 20 minutes on the date of the service which included preparing to see the patient, [id number] patient care, completing clinical documentation, obtaining and/or reviewing separately obtained history, performing a medically appropriate examination, counseling and educating the patient/family/caregiver, ordering medications, tests, or procedures, independently interpreting results (not separately reported) and communicating results to the patient/family/caregiver. Fuentes Amaral MD, CPE Hematology and Oncology Services Provided at: [place], [place] CC: Cas Cronin documented in this encounter [facility] 09-05-2022 Hospital Discharge instruction s Patient Education 09/05/2022 09:06:17 Kidney Stones, [id number] Kidney Stones Kidney stones are rock-like masses that form inside of the kidneys. Kidneys are organs that make pee (urine). A kidney stone may move into other parts of the urinary tract, including: The tubes that connect the kidneys to the bladder (ureters). The bladder. The tube that carries urine out of the body (urethra). Kidney stones can cause very bad pain and can block the flow of pee. The stone usually leaves your body (passes) through your pee. You may need to have a doctor take out the stone. What are the causes? Kidney stones may be caused by: A condition in which certain glands make too much parathyroid hormone (primary hyperparathyroidism). A buildup of a type of crystals in the bladder made of a chemical called uric acid. The body makes uric acid when you eat certain foods. Narrowing (stricture) of one or both of the ureters. A kidney blockage that you were born with. Past surgery on the kidney or the ureters, such as gastric bypass surgery. What increases the risk? You are more likely to develop this condition if: You have had a kidney stone in the past. You have a family history of kidney stones. You do not drink enough water. You eat a diet that is high in protein, salt (sodium), or sugar. You are overweight or very overweight (obese). What are the signs or symptoms? Symptoms of a kidney stone may include: Pain in the side of the belly, right below the ribs (flank pain). Pain usually spreads (radiates) to the groin. Needing to pee often or right away (urgently). Pain when going pee (urinating). Blood in your pee (hematuria). Feeling like you may vomit (nauseous). Vomiting. Fever and chills. How is this treated? Treatment depends on the size, location, and makeup of the kidney stones. The stones will often pass out of the body through peeing. You may need to: Drink more fluid to help pass the stone. In some cases, you may be given fluids through an IV tube put into one of your veins at the hospital. Take medicine for pain. Make changes in your diet to help keep kidney stones from coming back. Sometimes, medical procedures are needed to remove a kidney stone. This may involve: A procedure to break up kidney stones using a beam of light (laser) or shock waves. Surgery to remove the kidney stones. Follow these instructions at home: Medicines Take [id number] and prescription medicines only as told by your doctor. Ask your doctor if the medicine prescribed to you requires you to avoid driving or using heavy machinery. Eating and drinking Drink enough fluid to keep your pee pale yellow. You may be told to drink at least 8 10 glasses of water each day. This will help you pass the stone. If told by your doctor, change your diet. This may include: ?Limiting how much salt you eat. ?Eating more fruits and vegetables. ?Limiting how much meat, poultry, fish, and eggs you eat. Follow instructions from your doctor about eating or drinking restrictions. General instructions Collect pee samples as told by your doctor. You may need to collect a pee sample: ?24 hours after a stone comes out. ?8 12 weeks after a stone comes out, and every 6 12 months after that. Strain your pee every time you pee (urinate), for as long as told. Use the strainer that your doctor recommends. Do not throw out the stone. Keep it so that it can be tested by your doctor. Keep all follow-up visits as told by your doctor. This is important. You may need follow-up tests. How is this prevented? To prevent another kidney stone: Drink enough fluid to keep your pee pale yellow. This is the best way to prevent kidney stones. Eat healthy foods. Avoid certain foods as told by your doctor. You may be told to eat less protein. Stay at a healthy weight. Where to find more information National Kidney Foundation (NKF): www.kidney.org U[employer] (UCF): www.urologyhealth.org Contact a doctor if: You have pain that gets worse or does not get better with medicine. Get help right away if: You have a fever or chills. You get very bad pain. You get new pain in your belly (abdomen). You pass out (faint). You cannot pee. Summary Kidney stones are rock-like masses that form inside of the kidneys. Kidney stones can cause very bad pain and can block the flow of pee. The stones will often pass out of the body through peeing. Drink enough fluid to keep your pee pale yellow. This information is not intended to replace advice given to you by your health care provider. Make sure you discuss any questions you have with your health care provider. Document Revised: 09/26/2021 Document Reviewed: 09/26/2021 [employer] Patient Education 2022 [employer]. Follow Up Care 02/28/2022 09:04:41 With:TEJ HEREDIA, LORAINE Razo, URL Address: [address] 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 Post Covid POTS. 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 We evaluated her as a new patient May 24, 2022. Did not tolerate the bupropion. No syncope. Near syncope. ILR is June 2022. Chief Complaint: Follow-up Review of Systems Constitutional: Positive for malaise/fatigue. Cardiovascular: Positive for chest pain and near-syncope. Negative for syncope. Gastrointestinal: Positive for constipation and diarrhea. Celiac antibodies. Gluten free now. Less bloating. Constipation>diarrhea Neurological: Positive for dizziness, headaches and light-headedness. Started Emgality for migraines, Reaction. Now on Ajovy. Helps the migraines. Objective Vitals reviewed. Constitutional: Appearance: Healthy appearance. Not in distress. Neck: Vascular: No JVR. JVD normal. Pulmonary: Effort: Pulmonary effort is normal. Breath sounds: Normal breath sounds. No wheezing. No rhonchi. No rales. Chest: Chest wall: Not tender to palpatation. Cardiovascular: PMI at left midclavicular line. Normal rate. Regular rhythm. Normal S1. Normal S2. Murmurs: There is no murmur. No gallop. No click. No rub. Pulses: Intact distal pulses. Edema: Peripheral edema absent. Abdominal: General: Bowel sounds are normal. Palpations: Abdomen is soft. Tenderness: There is no abdominal tenderness. Musculoskeletal: Normal range of motion. General: No tenderness. Skin: General: Skin is warm and dry. Neurological: General: No focal deficit present. Mental Status: Alert and oriented to person, place and time. Assessment/Plan The primary encounter diagnosis was Autonomic dysfunction. Diagnoses of Chronic [id number] syndrome, Orthostatic intolerance, Celiac disease, and Implantable loop recorder present were also pertinent to this visit. Problem List Items Addressed This Visit Nervous Autonomic dysfunction - Primary Relevant Medications pyridostigmine (Mestinon) 60 mg tablet Orthostatic intolerance Circulatory Implantable loop recorder present Other Chronic [id number] syndrome Other Visit Diagnoses Celiac disease Pyridostigmine. Midodrine is a potent alpha-1 adrenergic agonist used for BP augmentation. It has a quick mechanism of action and short duration of action thus is usually given at least three times daily. This medication should be given while upright in the am, noon and dinner. It should not be given four hours before lying supine. Precaution is for supine hypertension. Patient should monitor orthostatic HR and BP in seated and standing positions (5 minutes each) and note any excessive BP response. Dosing begins at 2.5mg tid to 20mg tid. Most patients typically titrate to 5-10mg tid. Side effects include scalp goosebumps , headaches, nausea. Some patients use this PRN prior to upright activity or exercise. A patient should be instructed to carry this medication with them to use if they experience sudden episodes of hypotension. [facility] 07-04-2022 Note MI Electrophysiology Consult Note Reason for visit: check s/p loop insertion for syncope HPI: Leana Tran is a 36 y.o. year old with past medical history of syncope and is being seen by Dr. Cronin. recent loop monitor placed. Wound appears to be healing well with no concerns of infection, erythema, drainage. Insertion site palpated no concern for abscess. She denies aches, chills, fever. 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 Chief Complaint: Dysautonomia Not to belabor past history but Leana reports relatively healthy childhood. Asthma. Recurrent upper respiratory, ear, sinus infections in childhood. Menses began age 7. + PCOS. Pregnancies: 3 children. Pseudotumor cerebri; diamox. LP. Developed migraines after the LP. Lost weight. 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 Burst a few years ago . Cesar: 2020 Anxiety/ depression / PTSD; has psychiatrist HPI: Age 12 fatigue, episodes of blackouts. Saw cardiology age 14. Stopped control due to legs turning black and thought due to microclots . No syncope. Doing well. After Covid infection (hospitalized one week/pneumonia) 2020 began to experience sinus bradycardia. consulted and told needed a PPM . Transferred to [facility] and saw Dr. Michaud, performance improvement coordinator. Echocardiogram done (?inflammation). Discharged. Referred by Covid Clinic at [facility]. Told had autonomic issues PMH: No past medical history on file. PSH: No past surgical history on file. SH: Social Determinants of Health Tobacco Use: Low Risk Smoking Tobacco Use: Never Smokeless Tobacco Use: Never Passive Exposure: Never Alcohol Use: Not on file Financial Resource Strain: Not on file Food Insecurity: Not on file Transportation Needs: Not on file Physical Activity: Not on file Stress: Not on file Social Connections: Not on file Intimate Partner Violence: Not on file Depression: Not at risk PHQ-2 Score: 2 Housing Stability: Not on file Allergies: Allergies Allergen Reactions Cefaclor Anaphylaxis, Shortness of breath and Swelling Other reaction(s): Unknown, Unknown Other reaction(s): Unknown Other reaction(s): Unknown Cefuroxime Axetil Rash and Shortness of breath Clindamycin Rash, Shortness of breath and Swelling Other reaction(s): Unknown, Unknown Eucalyptus Anaphylaxis Iodides Anaphylaxis Iodinated Contrast Media Anaphylaxis Other reaction(s): Unknown Does not tolerate with pre-medication Tolerated with pre-medication on 09/22/21 Other reaction(s): Unknown Does not tolerate with pre-medication Lavender (Lavandula Angustifolia) Anaphylaxis Macrolide Antibiotics Shortness of breath and Swelling Other reaction(s): Allergy, Unknown, Unknown Sulfa (Sulfonamide Antibiotics) Shortness of breath and Swelling Other reaction(s): Unknown Other reaction(s): Unknown Sulfamethoxazole-Trimethoprim Other reaction(s): Other Cant breathe Valacyclovir Anaphylaxis and Shortness of breath Fish Containing Products Hives Ibuprofen Rash Other reaction(s): Unknown, Unknown Due to clotting disorder-Aleve Due to clotting disorder-Aleve Shellfish Derived Hives Ambien [Zolpidem] Drospirenone-Ethinyl Estradiol Other reaction(s): Other: See Comments Makers her asthma flair up Other reaction(s): Other: See Comments Skin discoloration of feet with OCPs Skin discoloration of feet with OCPs Makers her asthma flair up Gatifloxacin Diarrhea Gloves, Latex With Aloe Vera Other reaction(s): Unknown Iodine Other reaction(s): Unknown Menthol Hives Naproxen Other reaction(s): Angioedema Norethindrone Ac-Eth Estradiol Chest hurt and legs turned black -- saw Dr. Jorge London Chest hurt and legs turned black -- saw Dr. Jorge London Aspirin Rash Other reaction(s): Angioedema, Unknown, Unknown Latex, Natural Rubber Itching, Rash and Swelling Other reaction(s): Unknown Skin cracks and bleeds Skin cracks and bleeds Levofloxacin Rash Penicillins Itching and Rash Other reaction(s): Unknown, Unknown, Unknown Povidone-Iodine Rash Rofecoxib Rash Other reaction(s): Unknown Weight: No weight available Visit Vitals Smoking Status Never Meds: Current Outpatient Medications on File Prior to Visit Medication Sig Dispense Refill albuterol 90 mcg/actuation inhaler every 4 (four) hours. baclofen (Lioresal) 10 mg tablet Take 10 mg by mouth in the morning, afternoon, and at bedtime. budesonide-formoteroL (Symbicort) 160-4.5 mcg/actuation inhaler Inhale 2 puffs in the morning and at bedtime. Rinse mouth with water after use to reduce aftertaste and incidence of candid (more content not included)... [facility] 07-04-2022 Note Patient here for wound check s/p loop re christine insertion on 06/27/[address] Cronin. [facility] 06-27-2022 Note LOOP IMPLANT PROCEDURE NOTE DATE OF PROCEDURE: 06/27/22 PERFORMING PHYSICIAN: Dr. Stephon Cronin INSPECTOR HAIRSPRING TRUING: INDICATIONS FOR PROCEDURE: CONSENT: Patient LOCATION: EP lab PROCEDURAL SEDATION: Versed (conscious sedation) FLUOROSCOPY TIME: 0min PREPARATION: Preoperative antibiotics was administered. EBL:0cc PROCEDURES PERFORMED: 1. LOOP implant PROCEDURE NOTE: Patient was brought to the EP lab in the post absorptive state. A procedural pause was performed verifying the patient, the procedure. Sterile prep and drape were performed over the left precordium and anesthesia with 1% lidocaine was followed by a small incision was made in the 3rd intercostal space near the sternum on the left using the Biotronik tool. The loop recorder was then injected subcutaneously and noted to have good sensing parameters. Technical details of the device as noted below. The skin was then closed with 3-0 absorbable monofilament suture and glue applied to hold the edges together. Tegaderm was applied to cover the wound. The patient appeared to tolerate the procedure well and was returned to the room in stable condition. No complications were immediately observed. IMPRESSION: Successful placement of LOOP implant with excellent sensing parameters. COMPLICATIONS: None RECOMMENDATIONS: 1. Occlusive dressing to be changed after 7 days. Stephon Cronin MD Cardiac Electrophysiology. [facility] 06-27-2022 Note Patient: Leana Tran Procedure Information Date/Time: 06/27/22 0830 Procedure: Loop insertion Location: [facility] EP / [facility] (Cath) Providers: Stephon Cronin MD Clinical information reviewed: Tobacco Allergies Meds Med Hx Surg Hx Fam Hx Physical Exam Airway Mallampati: I Cardiovascular - normal exam Dental - normal exam Pulmonary - normal exam Abdominal - normal exam Anesthesia Plan ASA 1 MAC The patient is not a current smoker. Patient was not previously instructed to abstain from smoking on day of procedure. Patient did not smoke on day of procedure. intravenous induction Anesthetic plan and risks discussed with patient. Use of blood products discussed with patient who. 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 Chief Complaint: Dysautonomia Not to belabor past history but Leana reports relatively healthy childhood. Asthma. Recurrent upper respiratory, ear, sinus infections in childhood. Menses began age 7. + PCOS. Pregnancies: 3 children. Pseudotumor cerebri; diamox. LP. Developed migraines after the LP. Lost weight. 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 Burst a few years ago . Cesar: 2020 Anxiety/ depression / PTSD; has psychiatrist HPI: Age 12 fatigue, episodes of blackouts. Saw cardiology age 14. Stopped control due to legs turning black and thought due to microclots . No syncope. Doing well. After Covid infection (hospitalized one week/pneumonia) 2020 began to experience sinus bradycardia. consulted and told needed a PPM . Transferred to [facility] and saw Dr. Michaud, performance improvement coordinator. Echocardiogram done (?inflammation). Discharged. Referred by Covid Clinic at [facility]. Told had autonomic issues Seen at [facility] 2021: Head upright tilt. No 'POTS . Non diagnostic. Possible autonomic dysfunction. Recurrent lung infections since Covid. Found bleeding disorder at [facility]. No medication. Review of Systems Constitutional: Positive for malaise/fatigue. Cardiovascular: Positive for leg swelling and palpitations. Negative for near-syncope and syncope. No blackouts. Palpitations while upright. Random legs and hand swelling. HR fluctuates. 40bpm to 120bpm Respiratory: Positive for shortness of breath and wheezing. Endocrine: Diabetes type II after Covid. Hematologic/Lymphatic: Bruises/bleeds easily. Gastrointestinal: Positive for nausea. Negative for vomiting. IBS c/d Neurological: Positive for dizziness, headaches and light-headedness. Negative for seizures. Dizziness and lightheaded if upright too long . Has upright time of 90 minutes. 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 Episodes daily. BP typical when has episodes 77/50mmhg and HR 57bpm Allergic/Immunologic: Lymph node swelling. Chest. Has followup, follows with [employer] Objective Physical Exam Assessment/Plan The primary encounter diagnosis was Autonomic dysfunction. Diagnoses of Syncope and collapse and Tachycardia-bradycardia (CMS/HCC) were also pertinent to this visit. Problem List Items Addressed This Visit Nervous Autonomic dysfunction - Primary Relevant Medications buPROPion XL (Wellbutrin XL) 150 mg 24 hr tablet Other Visit Diagnoses Syncope and collapse Relevant Orders Case Request EP Lab: Loop insertion (Completed) Tachycardia-bradycardia (CMS/HCC) Relevant Medications EPINEPHrine 0.3 mg/0.3 mL injection syringe Bupropion is an antidepressant used in POTS/ autonomic dysfunction. It helps with orthostatic intolerance, fatigue and brain fog. It is not generally associate with weight gain. You would take in the am. It may cause you to feel jittery. Initially it may interfere with sleep. It takes about 2 weeks to note a response. You should not experience mood change, depression or suicidal thoughts. Again, it would not be given for those with seizure as it could lower the seizure threshold. You should take the same time in the morning and if you are on this medication for over one month you should not stop it abruptly or you could risk seizure. We discussed mechanism of action, side effects, desired effects, dosing. To contact us with medication concerns. The patient is suffering from an autonomic neuropathy, subset postural orthostatic tachycardia syndrome. The autonomic nervous system (ANS) is responsible for a number of body processes that are not under voluntary control including heart rate and blood pressure regulation, GI regulation, sweating, breathing, function and temperature regulation- to name the most important processes. Autonomic neuropathy is often associated with fluctuations in heart rate and blood pressure. We know a number of patients develop ANS dysregulation post exposure to pathogens including viruses, bacteria, sepsis, inoculations, surgeries, trauma. We believe this exposure likely results in an autoinflammatory or autoimmune type response which effects the ANS. Our research (Abel et. al, 2019 JA) and others have identified autoantibodies to autonomic receptors. Indeed, in the aforementioned study we evaluated 75 patients with postural orthostatic tachycardia syndrome (POTS), orthostatic intolerance (OI), dysautonomia and found that 92% of the sample had high circulating levels of a previously unidentified auto antibody to alpha-1 adrenergic smooth muscle receptors. In the positive participants, over 50% had ANS Mu receptor antibodies. We are currently enrolling pa (more content not included)... [facility] 05-03-2022 [facility] [place] Notes Formatting of this note might be differe nt from the original. Images from the original note were not included. documented in this encounter [facility] 04-26-2022 Note HNO ID: [id number] Author: Bhargavi Saldana PA-C Service: ? Author Type: Physician Youth Ministry Director Type: Progress Notes Filed: 04/26/2022 1:17 PM Note Text: Headache Center - Follow up Virtual Visit During this COVID-19 pandemic, patient's headache clinic evaluation was scheduled as a virtual visit using the following platform Zoom - patient currently located in [place] Leana Tran was identified by name and and consented to the video evaluation and its limitations. Based on this evaluation it may be necessary for them to schedule a follow up evaluation with me or other neurologists for formal physical examination and if necessary,other studies. I have communicated my name and active licensure. The patient's identity and physical location were verified at the time of this visit. Either the patient or their legal players club representative has been informed of the risks and benefits of -- and alternatives to -- treatment through a remote evaluation and consents to proceed with the evaluation remotely. Accompanied by: Self Primary Problem List: ACTIVE PROBLEM LIST Bleeding Disorder (Hcc) Arachnoid Cyst of Pituitary Gland Symptomatic Bradycardia Blood Pressure Instability Subjective Muscle Weakness Physical Deconditioning Transient Diplopia Orthostatic Lightheadedness Screening for Endocrine Disorder Primary Hypothyroidism Moderate Persistent Asthma Without Complication Gastroesophageal Reflux Disease Allergic Rhinitis Allergic Reaction to Contrast Dye Drug Reaction Adverse Food Reaction Diffuse Pain Decreased Activity Tolerance Orthostatic Intolerance Palpitations Qualitative Platelet Disorder (Hcc) Chief Complaint: Migraines Impression and Plan from last visit: 01/16/22 with me IMPRESSION: Leana Tran is a 36 year old year old female, with a history of chronic migraine, arachnoid cyst of pituitary gland, asthma, cholelithiasis, depression, GERD, hypothyroidism, IBS, KATELIN on CPAP, PTSD and pseudotumor cerebri following up today virtually for migraine. Her neurological examination is essentially normal at this visit. Stable on current regimen. Does not wish to make changes today. Labs are up to date. Patient verbalized understanding and agreed to treatment plan. She will follow up in 3 months or sooner or later depending on needs. PLAN: Continue zonisamide 100mg, lamictal (with an outside department), zoloft (with an outside department), Ajovy Continue nurtec, ubrelvy (with an outside department) as needed Follow up 3 months, PRN Interval Headache History: Leana Tran is a 36 year old year old female, with a history of chronic migraine, arachnoid cyst of pituitary gland, asthma, cholelithiasis, depression, GERD, hypothyroidism, IBS, KATELIN on CPAP, PTSD and pseudotumor cerebri following up today virtually for migraines. Since the last visit, the patient states that her headaches have not changed. Continues to do well on ajovy. Weather changes is main trigger. Prefers ubrelvy to nurtec - denies side effects with ubrelvy but nurtec makes her sleep for an hour after taking. Headache 1 Onset: - Years - worse in the last year Location: right Quality/Description: sharp, burning and throbbing Associated Symptoms: Photophobia: yes Phonophobia: yes Nausea: yes Vomiting: yes Worse with activity: yes Number of migraine headache days/month: 5 Migraine headache severity: 7/10 Number of NON-migraine headache days/month: 10 Total Number of headache days/month: 15 Number of headache free days/month: 15 Aura: right upper and lower extremity numbness/tingling and weakness along with vision abnormalities which is binocular with kaleidoscope vision alongside her headaches. Days missed from work or school in the last month: 0 days Preventative: zonisamide 100mg, lamictal (with an outside department), zoloft (with an outside department), Ajovy, cymbalta (with an outside department) Abortive: nurtec, ubrelvy (with an outside department) Medications effective? yes # of doses of abortive medications per month: around 10 gepants Contraception: s/p hysterectomy Analgesic Butalbital/acetaminophen/caffeine (Fioricet) Anti-Convulsant Lamotrigine (Lamictal) Topiramate (Topamax, Trokendi XL, Qudexy) Zonisamide (Zonegram) Anti-Depressant and Antipsychotic Citalopram (Celexa) Fluoxetine (Prozac) Sertraline (Zoloft) Anti-Migraine Rizatriptan (Maxalt) Sumatriptan (Imitrex, Sumavel) MABs Fremanezumab (Ajovy) Galcanezumab (Emgality) GEPANTS Ubrogepant (Ubrelvy) Rimegepant (Nurtec) Botulinum Toxin Onabotulinum Toxin A (Botox) 3 rounds Supplements Magnesium PAST MEDICAL HISTORY Diagnosis Date Arachnoid cyst of pituitary gland Asthma Bulging of cervical intervertebral disc C4-C7 Cholelithiases COVID-19 10/2020 Depression GERD (gastroesophageal reflux disease) Hypercoagulable state (HCC) Hypothyroid IBS (i (more content not included)... [facility] 04-26-2022 History of Present illness Narrative Formatting of this note is different fro m the original. Headache Center - Follow up Virtual Visit During this COVID-19 pandemic, patient's headache clinic evaluation was scheduled as a virtual visit using the following platform Zoom - patient currently located in [place] Leana Tran was identified by name and and consented to the video evaluation and its limitations. Based on this evaluation it may be necessary for them to schedule a follow up evaluation with me or other neurologists for formal physical examination and if necessary,other studies. I have communicated my name and active licensure. The patient's identity and physical location were verified at the time of this visit. Either the patient or their legal players club representative has been informed of the risks and benefits of -- and alternatives to -- treatment through a remote evaluation and consents to proceed with the evaluation remotely. Accompanied by: Self Primary Problem List: ACTIVE PROBLEM LIST Bleeding Disorder (Hcc) Arachnoid Cyst of Pituitary Gland Symptomatic Bradycardia Blood Pressure Instability Subjective Muscle Weakness Physical Deconditioning Transient Diplopia Orthostatic Lightheadedness Screening for Endocrine Disorder Primary Hypothyroidism Moderate Persistent Asthma Without Complication Gastroesophageal Reflux Disease Allergic Rhinitis Allergic Reaction to Contrast Dye Drug Reaction Adverse Food Reaction Diffuse Pain Decreased Activity Tolerance Orthostatic Intolerance Palpitations Qualitative Platelet Disorder (Hcc) Chief Complaint: Migraines Impression and Plan from last visit: 01/16/22 with me IMPRESSION: Leana Tran is a 36 year old year old female, with a history of chronic migraine, arachnoid cyst of pituitary gland, asthma, cholelithiasis, depression, GERD, hypothyroidism, IBS, KATELIN on CPAP, PTSD and pseudotumor cerebri following up today virtually for migraine. Her neurological examination is essentially normal at this visit. Stable on current regimen. Does not wish to make changes today. Labs are up to date. Patient verbalized understanding and agreed to treatment plan. She will follow up in 3 months or sooner or later depending on needs. PLAN: Continue zonisamide 100mg, lamictal (with an outside department), zoloft (with an outside department), Ajovy Continue nurtec, ubrelvy (with an outside department) as needed Follow up 3 months, PRN Interval Headache History: Leana Tran is a 36 year old year old female, with a history of chronic migraine, arachnoid cyst of pituitary gland, asthma, cholelithiasis, depression, GERD, hypothyroidism, IBS, KATELIN on CPAP, PTSD and pseudotumor cerebri following up today virtually for migraines. Since the last visit, the patient states that her headaches have not changed. Continues to do well on ajovy. Weather changes is main trigger. Prefers ubrelvy to nurtec - denies side effects with ubrelvy but nurtec makes her sleep for an hour after taking. Headache 1 Onset: - Years - worse in the last year Location: right Quality/Description: sharp, burning and throbbing Associated Symptoms: Photophobia: yes Phonophobia: yes Nausea: yes Vomiting: yes Worse with activity: yes Number of migraine headache days/month: 5 Migraine headache severity: 7/10 Number of NON-migraine headache days/month: 10 Total Number of headache days/month: 15 Number of headache free days/month: 15 Aura: right upper and lower extremity numbness/tingling and weakness along with vision abnormalities which is binocular with kaleidoscope vision alongside her headaches. Days missed from work or school in the last month: 0 days Preventative: zonisamide 100mg, lamictal (with an outside department), zoloft (with an outside department), Ajovy, cymbalta (with an outside department) Abortive: nurtec, ubrelvy (with an outside department) Medications effective? yes # of doses of abortive medications per month: around 10 gepants Contraception: s/p hysterectomy Analgesic Butalbital/acetaminophen/caffeine (Fioricet) Anti-Convulsant Lamotrigine (Lamictal) Topiramate (Topamax, Trokendi XL, Qudexy) Zonisamide (Zonegram) Anti-Depressant and Antipsychotic Citalopram (Celexa) Fluoxetine (Prozac) Sertraline (Zoloft) Anti-Migraine Rizatriptan (Maxalt) Sumatriptan (Imitrex, Sumavel) MABs Fremanezumab (Ajovy) Galcanezumab (Emgality) GEPANTS Ubrogepant (Ubrelvy) Rimegepant (Nurtec) Botulinum Toxin Onabotulinum Toxin A (Botox) 3 rounds Supplements Magnesium PAST MEDICAL HISTORY Diagnosis Date Arachnoid cyst of pituitary gland Asthma Bulging of cervical intervertebral disc C4-C7 Cholelithiases COVID-19 10/2020 Depression GERD (gastroesophageal reflux disease) Hypercoagulable state (HCC) Hypothyroid IBS (irritable bowel syndrome) KATELIN on CPAP Palpitations 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 Pseudotumor cerebri PTSD (post-traumatic stress disorder) PAST SURGICAL HISTORY Procedure Laterality Date ABDOMINAL SURGERY HX 2010 exploration APPENDECTOMY 2008 DELIVERY ONLY HYSTERECTOMY NOSE SURGERY HX 2011 REMOVAL GALLBLADDER TUBAL LIGATION HX ALLERGIES Allergen Reactions Cefaclor Shortness of Breath, Anaphylaxis, Swelling Other reaction(s): Unknown Iodinated Contrast * Anaphylaxis Tolerated with pre-medication on 09/22/21 Other reaction(s): Unknown Does not tolerate with pre-medication Fish Containing Pro* Hives Shellfish Derived Hives Aleve [Naproxen] Angioedema Aspirin Angioedema Ceftin [Cefuroxime * Shortness of Breath Clindamycin Rash, Shortness of Breath Erythromycin Swelling, Shortness of Breath, Unknown Eucalyptus Anaphylaxis Gatifloxacin Diarrhea Lavender (Lavandula* Anaphylaxis Penicillin G Benzat* Unknown Penicillins Rash, Itching Sulfa (Sulfonamide * Swelling, Shortness of Breath Vioxx [Rofecoxib] Unknown Froylan 28 [Drospirenon* Other: See Comments Skin discoloration of feet with OCPs Latex Rash, Itching, Unknown Skin cracks and bleeds Levofloxacin Rash Current Medications: CPAP/BIPAP/OTHER^Type .CPAPSettings into a note to see current settings/supplies/DME information.^Disp: ^Rfl: aminocaproic acid (AMICAR) 500 mg tablet^Take 2 tablets by mouth every 6 hours as needed (once prior to dentist and then after for 3-4 doses.) for up to 5 days.^Disp: 40 tablet^Rfl: 3 DULoxetine (CYMBALTA) 30 mg capsule^TAKE 1 CAPSULE BY MOUTH EVERY DAY DO NOT CRUSH OR CHEW^Disp: ^Rfl: Fluticasone Furoate (FLONASE SENSIMIST) 27.5 mcg/actuation nasal spray^1 spray in each nostril^Disp: ^Rfl: levalbuterol tartrate HFA 45 mcg/actuation inhaler^Inhale 1-2 Puffs as instructed every 4 hours as needed for wheezing/shortness of breath.^Disp: 1 Each^Rfl: 3 budesonide (PULMICORT) 0.5 mg/2 mL nebulizer solution^Use 2 mL via nebulizer every 12 hours. Inhale over 5-15 minutes^Disp: 120 mL^Rfl: 5 SITagliptin (JANUVIA) 100 mg tablet^Take 1 tablet by mouth once daily.^Disp: ^Rfl: Magnesium 250 mg tab^Take 250 mg by mouth.^Disp: ^Rfl: ASCORBIC ACID, VITAMIN C, ORAL^Take 100 mg by mouth once daily. With zinc^Disp: ^Rfl: Zinc 50 mg tab^Take by mouth.^Disp: ^Rfl: fremanezumab-vfrm subcutaneus auto-injector 225 mg/1.5 mL (AJOVY)^Inject 1.5 mL subcutaneously once every month. Do not shake.^Disp: 1.5 mL^Rfl: 11 UBRELVY 100 mg tablet^TAKE 1 TABLET BY MOUTH AT ONSET OF MIGRAINE. MAY REPEAT IN 2 HOURS NEEDED. MAX 2 TABLET IN 24 HOURS^Disp: ^Rfl: baclofen (LIORESAL) 10 mg tablet^Take 10-20 mg by mouth at bedtime as needed.^Disp: ^Rfl: cetirizine (ZYRTEC) 10 mg tablet^Take 10 mg by mouth as needed.^Disp: ^Rfl: diphenhydrAMINE (BENADRYL) 25 mg tablet^Take 50 mg by mouth every 6 hours as needed.^Disp: ^Rfl: zonisamide (ZONEGRAN) 100 mg capsule^Take 1 capsule by mouth once daily.^Disp: 90 capsule^Rfl: 3 rimegepant (NURTEC ODT) 75 mg disintegrating tablet^Take 1 tablet by mouth once daily as needed. No more than 1 dose in 24 hours.^Disp: 8 tablet^Rfl: 11 mecobalamin, vitamin B12, 1,000 mcg ODT^once daily.^Disp: ^Rfl: VITAMIN D-3 125 mcg (5,000 unit) tab^Take 5,000 Units by mouth once daily.^Disp: ^Rfl: EPINEPHrine 0.1 mg/0.1 mL AutoInjector^as needed. ^Disp: ^Rfl: lamoTRIgine (LAMICTAL) 150 mg tablet^Take 150 mg by mouth daily at bedtime. ^Disp: ^Rfl: sertraline (ZOLOFT) 100 mg tablet^Take 200 mg by mouth daily at bedtime. ^Disp: ^Rfl: levothyroxine (SYNTHROID) 100 mcg tablet^Take 100 mcg by mouth daily before breakfast. Takes 1.5 tablets on Wednesdays^Disp: ^Rfl: montelukast (SINGULAIR) 10 mg tablet^Take 10 mg by mouth once daily. ^Disp: ^Rfl: I have reviewed the Health Status Assessment responses and discussed these with the patient: yes Bhargavi Saldana PA-C HEADACHE SCORES: Headache Questions 10/17/2021 01/13/2022 04/22/2022 ID Migraine Screener: - - - ER visits in the last year: - - - ER visits since last office visit: 0 0 0 Hospital stays in the last year: - - - Hospital stays since last office visit 0 0 0 Limited ADLs in the last month: 16 4 5 Days missed from work or school in the last month: 0 0 0 Days headache pain free in the last month: 5 10 15 Days per month with ALL of the following symptoms - decreased productivity, light sensitivity and nausea: 10 4 5 Initial improvement of headache after botox injection at last visit: Not applicable, I did not have a botox injection at my last visit Not applicable, I did not have a botox injection at my last visit Not applicable, I did not have a botox injection at my last visit PRN medication usage in the last month: 10 4 5 Patient impression of improvement since last visit: Minimally improved Much improved No change HIT-6 10/17/2021 01/13/2022 04/22/2022 HIT-6 64 (Severe impact) 62 (Severe impact) 72 (Severe impact) FANNY - 2/7 SCORES 10/17/2021 01/13/2022 04/22/2022 FANNY-2 Score 3 1 3 FANNY-7 Score 11 - 9 Migraine Specific QOL - Higher scores indicate better HRQL 10/17/2021 01/13/2022 04/22/2022 Role Function-Restrictive Transformed Score (range: 0-100) 40 60 40 Role Function-Preventive Transformed Score (range: 0-100) 50 60 50 Emotional Function Transformed Score (range: 0-100) 40 60 73.33 PHQ-9 10/17/2021 01/13/2022 04/09/2022 Score 14 14 9 Studies to Review: No MRI Head/Brain - Last 2 Impressions MRI BRAIN WO/W IVCON Exam End: 06/16/2021 11:27 AM (Final result) Impression: IMPRESSION: Trace fluid in the left mastoid air cells, small likely retention cysts in the maxillary and right sphenoid sinuses, and trace right frontal and bilateral ethmoid sinus mucosal thickening.... MRI BRAIN WO/W IVCON Collected: 03/31/2016 2:08 PM (Final result) Impression: IMPRESSION: No acute intracranial findings. Chronic left mastoid sinus opacification.... MRA Head and/or Neck - Last 2 Impressions MRA BRAIN WO IVCON ([place]) Collected: 03/31/2016 1:36 PM (Final result) Impression: IMPRESSION: No acute intracranial findings. Chronic left mastoid sinus opacification. No evidence of venous sinus thrombosis. Unremarkable MRA brain and MRA neck. Cmm Inspector: PSCB Transcribe Date/Time: Mar 31 2016 2:40P Dictated by : PABLO ORELLANA MD This examination was interpreted and the report reviewed and electronically signed by: PABLO ORELLANA MD on Mar 31 2016 2:54PM EST CT Head/Brain - Last [address] BRAIN WO IVCON Exam End: 06/27/2021 2:42 PM (Final result) Impression: IMPRESSION: Normal examination of the brain. Mild paranasal sinus inflammatory change which could potentially contribute to headache. Cmm Inspector: PSCB Transcribe Date/Time: Jun 27 2021 3:07P Dictated by : CHRISTY ARMAS MD This examination was interpreted and the report reviewed and electronically signed by: CHRISTY ARMAS MD on Jun 27 2021 3:10PM EST Labs to Review: No - Most recent CMP and CBC below CMP 01/30/22 2 mo ago Glucose 70 - 99 mg/dL 125 High BUN 6 - 20 mg/dL 9 Creatinine 0.50 - 0.90 mg/dL 0.89 Est, Glom Filt Rate >60 mL/min/1.73m2 >60 Bun/Cre Ratio 9 - 20 10 Calcium 8.6 - 10.4 mg/dL 10.4 Sodium 135 - 144 mmol/L 140 Potassium 3.7 - 5.3 mmol/L 4.0 Chloride 98 - 107 mmol/L 105 CO2 20 - 31 mmol/L 25 Anion Gap 9 - 17 mmol/L 10 Alkaline Phosphatase 35 - 104 U/L 76 ALT 5 - 33 U/L 40 High AST <32 U/L 17 Total Bilirubin 0.3 - 1.2 mg/dL 0.3 Total Protein 6.4 - 8.3 g/dL 7.9 Albumin 3.5 - 5.2 g/dL 4.7 Albumin/Globulin Ratio 1.0 - 2.5 1.5 CBC 01/30/22 2 mo ago WBC 3.5 - 11.3 k/uL 9.1 RBC 3.95 - 5.11 m/uL 5.34 High Hemoglobin 11.9 - 15.1 g/dL 15.9 High Hematocrit 36.3 - 47.1 % 46.1 MCV 82.6 - 102.9 fL 86.3 MCH 25.2 - 33.5 pg 29.8 MCHC 28.4 - 34.8 g/dL 34.5 RDW 11.8 - 14.4 % 11.6 Low Platelets 138 - 453 k/uL 248 MPV 8.1 - 13.5 fL 9.4 NRBC Automated 0.0 per 100 WBC 0.0 Seg Neutrophils 36 - 65 % 76 High Lymphocytes 24 - 43 % 18 Low Monocytes 3 - 12 % 4 Eosinophils % 1 - 4 % 2 Basophils 0 - 2 % 0 Immature Granulocytes 0 % 0 Segs Absolute 1.50 - 8.10 k/uL 6.83 Absolute Lymph # 1.10 - 3.70 k/uL 1.67 Absolute [place] # 0.10 - 1.20 k/uL 0.37 Absolute Eos # 0.00 - 0.44 k/uL 0.19 Basophils Absolute 0.00 - 0.20 k/uL 0.04 Absolute Immature Granulocyte 0.00 - 0.30 k/uL 0.04 Review of Systems: Review of system: unchanged from the previous visit (sleep patterns, mood, energy, appetite, stress, exercising). Physical Examination: Vital Signs: [facility] 2015 General: well appearing, in no acute distress, alert Pain Behaviors: no pain behaviors observed Neurological: Mental Status: Alert and oriented to person, place and time. Affect is normal. Speech is spontaneous and fluent without dysarthria. 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 Attention span and concentration are excellent. HEENT: Head is normocephalic and features were symmetric. Musculoskeletal: Patient able to sit up right in chair for entirety of visit. Cranial Nerves: III, IV, -EOMI: full. VII-face is symmetric without evidence of weakness. VIII-hearing intact. IMPRESSION: Migraine without aura and without status migrainosus, not intractable (primary encounter diagnosis) Leana Tran is a 36 year old year old female, with a history of chronic migraine, arachnoid cyst of pituitary gland, asthma, cholelithiasis, depression, GERD, hypothyroidism, IBS, KATELIN on CPAP, PTSD and pseudotumor cerebri following up today virtually for migraines. Her neurological examination is essentially normal at this visit. Stable on current regimen. Does not wish to make changes today. Refills provided. May try mini prevention with nurtec or ubrelvy around weather changes. Patient verbalized understanding and agreed to treatment plan. She will follow up in 6 months or sooner if needed. PLAN: Continue zonisamide 100mg, lamictal (with an outside department), zoloft (with an outside department), Ajovy, cymbalta (with an outside department) Continue nurtec, ubrelvy (with an outside department) as needed Follow up 6 months, PRN Prior Authorization: Leana Tran has been previously approved for Calcitonin Gene Related Peptide Monoclonal Antibody (CGRP MAB) (Fremanezumab). The patient has demonstrated the following: Patient reduction in overall migraine days: Yes Patient reduction in moderate-severe migraine days: Yes Individual has obtained clinical benefit deemed significant by individual or prescriber: Yes Patient's quality of life and ability to perform ADLs has improved: Yes We suggest the patient continue treatment with CGRP MAB Fremanezumab. The following preventative medications have been tried for three or more months without benefit: Anti-Convulsant Lamotrigine (Lamictal) Topiramate (Topamax, Trokendi XL, Qudexy) Zonisamide (Zonegram) Anti-Depressant and Antipsychotic Citalopram (Celexa) Fluoxetine (Prozac) Sertraline (Zoloft) MABs Fremanezumab (Ajovy) Galcanezumab (Emgality) Botulinum Toxin Onabotulinum Toxin A (Botox) 3 rounds Supplements Magnesium The following abortive medications have been tried but require high frequency use which can lead to Medication Overuse Headache: Analgesic Butalbital/acetaminophen/caffeine (Fioricet) Anti-Migraine Rizatriptan (Maxalt) Sumatriptan (Imitrex, Sumavel) GEPANTS Ubrogepant (Ubrelvy) Rimegepant (Nurtec) Leana Tran has been previously approved for an Oral Calcitonin Gene- Related Peptide Receptor Antagonist (GEPANT) Rimegepant for the treatment of acute migraine. The patient has demonstrated the following: Provider attests patient has had a positive clinical response: Yes Patient will not use with another Oral Calcitonin Gene-Related Peptide Receptor Antagonist (GEPANT): Yes Patient's quality of life and ability to perform ADLs has improved: Yes We suggest the patient continue treatment with GEPANT Ubrogepant. The following preventative medications have been tried for three or more months without benefit: Anti-Convulsant Lamotrigine (Lamictal) Topiramate (Topamax, Trokendi XL, Qudexy) Zonisamide (Zonegram) Anti-Depressant and Antipsychotic Citalopram (Celexa) Fluoxetine (Prozac) Sertraline (Zoloft) MABs Fremanezumab (Ajovy) Galcanezumab (Emgality) Botulinum Toxin Onabotulinum Toxin A (Botox) 3 rounds Supplements Magnesium The following abortive medications have been tried but require high frequency use which can lead to Medication Overuse Headache: Analgesic Butalbital/acetaminophen/caffeine (Fioricet) Anti-Migraine Rizatriptan (Maxalt) Sumatriptan (Imitrex, Sumavel) GEPANTS Ubrogepant (Ubrelvy) Rimegepant (Nurtec) HEADACHE MANAGEMENT: (You are the primary guardian of your health and headache. Keep track of all medications: This includes the reason for use, side effects and benefits.) MEDICATION TREATMENT: Medications to Start Taking None Headache education was done. Discussed lifestyle modification including increased oral hydration, decreased caffeine, exercise and stress management. Discussed treatment options including preventive and acute medications, natural supplements, and infusion therapy. Discussed medication overuse headache and to limit use of acute treatments to no more than 2 days/week or 10 days/month. Discussed medication side effects, adverse reactions and drug interactions. Written educational materials and patient instructions outlining all of the above were given. RESEARCH: None at this time Follow-up: 6 months, PRN Level of Service: Virtual Visit 15 minutes Bhargavi Saldana PA-C Headache Section [facility] April 26, 2022 documented in this encounter [facility] 04-17-2022 Note HNO ID: [id number] Author: Fuentes Amaral MD Service: ? Author Type: Physician Type: Progress Notes Filed: 04/18/2022 5:06 PM Note Text: AMBULATORY TELEPHONE VISIT Leana Tran has consented to this telephone encounter. Persons Present: patient Chief Complaint/Reason: platelet disorder HPI: Platelet transmission electron microscopy (PTEM) studies demonstrate essentially normal dense granules, alpha granules and other ultra-structures. No abnormal inclusions identified. 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 AMBULATORY TELEPHONE VISIT Leana Tran has consented to this telephone encounter. Persons Present: patient Chief Complaint/Reason: platelet disorder HPI: Platelet transmission electron microscopy (PTEM) studies demonstrate essentially normal dense granules, alpha granules and other ultra-structures. No abnormal inclusions identified. 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 Author Type: Physician Type: Progress Notes Filed: 04/11/2022 3:50 PM Note Text: [facility] Virtual Visit Follow up/ Established patient visit Date of last visit : 11/16/2021 Interval history : Here for follow up for KATELIN and restless legs She had recent hospitalization at [place], was advised to switch to bilevel she had trouble tolerating the CPAP. She she has been using bilevel since. She experienced difficulties during the first week but has observed that compliance and ease of usage have improved since then. Symptomatically she feels the bilevel is helping, has a full facemask. Does not have a data download for review during this visit-has to send in the SD card. She was given an older device with plans for it to be replaced when new one is available. She does continue to complain of restless legs, ferritin levels at the last visit that her requested have not been assessed as yet. Ferritin level on 06/26 was 98 mcg/L. She takes magnesium on an as-needed basis to help with her headaches, does take baclofen at bedtime. PSG- 01/01/2022 Moderate obstructive sleep apnea exacerbated in supine sleep. Respiratory events were associated with oxygen desaturations to a ermias of 86%. PLM-index of 38.9. Of these, 2 movements were associated with arousals, resulting in a PLM-arousal index of 0.3. SLEEP HYGIENE QUESTIONS: She is a self-described night person. Bedtime: 2.30 AM. She has a hard time falling asleep. Time to fall asleep: 60-90min Wake time: 8-9 AM, without an alarm PATIENT-ENTERED QUESTIONNAIRE SLEEP SCORES Sleep Questions 04/09/2022 Reason for visit: Sleep apnea, Difficulty falling or staying asleep or poor sleep quality, Restless Legs Syndrome Average hours slept in 24 hours: 8 Average hours of CPAP per night: 7.5 Percent of nights CPAP used at least 4 hours: 75 Accidents or near accidents due to drowsy drivin [place] Sleepiness Scale 11/13/2021 04/09/2022 Score 7 (No daytime sleepiness) 9 (No daytime sleepiness) PROMIS CAT Sleep Disturbance 09/04/2020 11/13/2021 04/09/2022 PROMIS Sleep Disturbance T-Score 51 (within normal limits) 56 (mild) 54 (within normal limits) Insomnia Severity Index 06/20/2021 08/22/2021 11/13/2021 Score 8 8 10 Restless Leg Syndrome 11/13/2021 04/09/2022 Score 12 15 PHQ-9 10/17/2021 01/13/2022 04/09/2022 Score 14 14 9 PROMIS Global Health - (T-Scores - the mean of general population = 50. Five points is a clinically meaningful difference.) 11/08/2021 01/13/2022 04/09/2022 Physical T-Score 39.8 32.4 39.8 Mental T-Score 31.3 33.8 33.8 ALLERGIES Allergen Reactions Cefaclor Shortness of Breath, Anaphylaxis, Swelling Other reaction(s): Unknown Iodinated Contrast * Anaphylaxis Tolerated with pre-medication on 09/22/21 Other reaction(s): Unknown Does not tolerate with pre-medication Fish Containing Pro* Hives Shellfish Derived Hives Aleve [Naproxen] Angioedema Aspirin Angioedema Ceftin [Cefuroxime * Shortness of Breath Clindamycin Rash, Shortness of Breath Erythromycin Swelling, Shortness of Breath, Unknown Eucalyptus Anaphylaxis Gatifloxacin Diarrhea Lavender (Lavandula* Anaphylaxis Penicillin G Benzat* Unknown Penicillins Rash, Itching Sulfa (Sulfonamide * Swelling, Shortness of Breath Vioxx [Rofecoxib] Unknown Froylan 28 [Drospirenon* Other: See Comments Skin discoloration of feet with OCPs Latex Rash, Itching, Unknown Skin cracks and bleeds Levofloxacin Rash CURRENT MEDICATIONS: CPAP/BIPAP/OTHERType .CPAPSettings into a note to see current settings/supplies/DME information.Disp: Rfl: aminocaproic acid (AMICAR) 500 mg tabletTake 2 tablets by mouth every 6 hours as needed (once prior to dentist and then after for 3-4 doses.) for up to 5 days.Disp: 40 tabletRfl: 3 DULoxetine (CYMBALTA) 30 mg capsuleTAKE 1 CAPSULE BY MOUTH EVERY DAY DO NOT CRUSH OR CHEWDisp: Rfl: Fluticasone Furoate (FLONASE SENSIMIST) 27.5 mcg/actuation nasal spray1 spray in each nostrilDisp: Rfl: levalbuterol tartrate HFA 45 mcg/actuation inhalerInhale 1-2 Puffs as instructed every 4 hours as needed for wheezing/shortness of breath.Disp: 1 EachRfl: 3 budesonide (PULMICORT) 0.5 mg/2 mL nebulizer solutionUse 2 mL via nebulizer every 12 hours. Inhale over 5-15 minutesDisp: 120 mLRfl: 5 SITagliptin (JANUVIA) 100 mg tabletTake 1 tablet by mouth once daily.Disp: Rfl: Magnesium 250 mg tabTake 250 mg by mouth.Disp: Rfl: ASCORBIC ACID, VITAMIN C, ORALTake 100 mg by mouth once daily. With zincDisp: Rfl: Zinc 50 mg tabTake by mouth.Disp: Rfl: fremanezumab-vfrm subcutaneus auto-injector 225 mg/1.5 mL (AJOVY)Inject 1.5 mL subcutaneously once every month. Do not shake.Disp: 1.5 mLRfl: 11 UBRELVY 100 mg tabletTAKE 1 TABLET BY MOUTH AT ONSET OF MIGRAINE. MAY REPEAT IN 2 HOURS NEEDED. MAX 2 TABLET IN 24 HOURSDisp: Rfl: baclofen (LIORESAL) 10 mg tabletTake 10- (more content not included)... [facility] 04-03-2022 Note HNO ID: [id number] Author: Fuentes Amaral MD Service: ? Author Type: Physician Type: Progress Notes Filed: 04/03/2022 11:08 AM Note Text: HEMATOLOGY FOLLOW UP April 03, 2022 ([place]) Some elements in this clinic note that are critical to medical decision making have been carefully reviewed and included from a prior clinic note dated:February 10, 2022 ([place]) PCP and other physicians involved in patient's care: Cas Dowell (PCP), Rajinder Collins (surgery), Rubens Tim (ObGyn), DIAGNOSIS: Undiagnosed bleeding disorder, work-up pending - transition of care. 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 She has had multiple surgical, obstetric, gynecologic, and dental procedures in the past. Some of these procedures have been associated with postoperative bleeding complications. Patient also has multiple bleeding issues such as easy gum bleeding on a regular basis. Her family history is unclear given that she was adopted but one of her sons has symptoms similar to her's (recurrent epistaxis and easy gum bleeding). Work-up for bleeding disorder in May 2021 showed an abnormal platelet aggregometry. There was mildly decreased aggregation to low dose ADP, collagen, and arachidonic acid but normal aggregation to high dose ADP and epinephrine (low and high dose). These findings were considered to be nonspecific. Patient does not take any aspirin or NSAIDs. 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 She has seen medical genetics and work-up is ongoing pending insurance authorization. Based on her previous surgical experiences, any surgical bleeding may be minimized by using FFP and platelet transfusions prior to the procedure. Follow up after genetics work-up is complete which she was encouraged to pursue. Additional constitutional symptoms will need additional workup. Reviewed Mammography showing axillary tail lymph nodes. They appeared benign and today's exam was normal. If she remains concerned, we can re-examine her and set up a breast MRI. PLAN: Platelet electron microscopy pending drawn Call results when available - anticipate 2 weeks Consider functional medicine referral for DM and PCOS Keep appointment with Dr. Stephon Cronin's group for POTS Trial of Amicar prior to dentist appointment. RTC in 6 months - cbc, cmp HPI: Patient has an extensive and longstanding history of bleeding issues. In 2008, she was seen by Dr. Shirley and was noted to have an elevated PTT of 36 seconds. This corrected by addition of FFP. 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 She reportedly tested negative for von Willebrand disease. Some of these labs have been scanned in our EMR (2011). Previous bleeding history includes menorrhagia (endometrial ablation in 2014 for which she needed FFP and hysterectomy in 2019 [unclear whether she got FFP]), epistaxis since childhood (resolved after sinus surgery in 2010), gum bleeding on a daily basis with minimal trauma, and a recent episode of bright red blood per rectum in March 2021 (no EGD or colonoscopy). Previous dental procedures include cavity fillings. It is unclear whether she had any bleeding issues after that procedure. She has had 2 normal vaginal deliveries with hemorrhage but patient does not remember if any medical or surgical intervention was done. She had a during her third and reports that the surgery took longer than anticipated. Referred to me in May 2021 for pre-operative clearance prior to elective inguinal hernia repair May 2021, PT 10 seconds, PTT 32.7 seconds, activity levels of factors II, V, IX, X, XI; activity levels of factor VIII elevated; no evidence of von Willebrand's disease; platelet function screen normal; platelet aggregometry notable showed mildly decreased aggregation to low dose ADP, collagen, and arachidonic acid but normal aggregation to high dose ADP and epinephrine (low and high dose). There was a normal stimulated dense granule release to all agonists. The ristocetin induced platelet aggregation showed a normal dose response. Overall, these findings were non-specific. July 2021, above labs repeated with the same result; TEG normal; fibrinogen antigen normal Updated Visit, April 03, 2022: Leana returns. Continues to have mild bruising on legs and arms. Figers and ankles feel swollen. TSH 0.08 - adjusting meds. Seeing POTS clinic tomorrow. Getting an US of kidney for possible mass repeated scheduled in August. Platelet microscopy pending still. Updated Visit, February 10, 2022: Leana's platelet genetic testing is unremarkable. She has multiple complaints of bruising on her breasts. Endorsing Breasts have bruises without contact, nipples change color for no reason. Getting random rashes Breaking ou (more content not included)... [facility] 04-03-2022 Instruction s Fuentes Amaral MD - 04/03/2022 11:06 AM EST Platelet electron microscopy pending drawn Call results when available - anticipate 2 weeks Consider functional medicine referral for DM and PCOS Keep appointment with Dr. Stephon Cronin's group for POTS Trial of Amicar prior to dentist appointment. documented in this encounter [facility] 04-03-2022 History of Present illness Narrative Formatting of this note might be differe nt from the original. Images from the original note were not included. HEMATOLOGY FOLLOW UP April 03, 2022 ([place]) Some elements in this clinic note that are critical to medical decision making have been carefully reviewed and included from a prior clinic note dated:February 10, 2022 ([place]) PCP and other physicians involved in patient's care: Cas Dowell (PCP), Rajinder Collins (surgery), Rubens Tim (ObGyn), DIAGNOSIS: Undiagnosed bleeding disorder, work-up pending - transition of care. 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 She has had multiple surgical, obstetric, gynecologic, and dental procedures in the past. Some of these procedures have been associated with postoperative bleeding complications. Patient also has multiple bleeding issues such as easy gum bleeding on a regular basis. Her family history is unclear given that she was adopted but one of her sons has symptoms similar to her's (recurrent epistaxis and easy gum bleeding). Work-up for bleeding disorder in May 2021 showed an abnormal platelet aggregometry. There was mildly decreased aggregation to low dose ADP, collagen, and arachidonic acid but normal aggregation to high dose ADP and epinephrine (low and high dose). These findings were considered to be nonspecific. Patient does not take any aspirin or NSAIDs. 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 She has seen medical genetics and work-up is ongoing pending insurance authorization. Based on her previous surgical experiences, any surgical bleeding may be minimized by using FFP and platelet transfusions prior to the procedure. Follow up after genetics work-up is complete which she was encouraged to pursue. Additional constitutional symptoms will need additional workup. Reviewed Mammography showing axillary tail lymph nodes. They appeared benign and today's exam was normal. If she remains concerned, we can re-examine her and set up a breast MRI. PLAN: Platelet electron microscopy pending drawn Call results when available - anticipate 2 weeks Consider functional medicine referral for DM and PCOS Keep appointment with Dr. Stephon Cronin's group for POTS Trial of Amicar prior to dentist appointment. RTC in 6 months - cbc, cmp HPI: Patient has an extensive and longstanding history of bleeding issues. In 2008, she was seen by Dr. Shirley and was noted to have an elevated PTT of 36 seconds. This corrected by addition of FFP. 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 She reportedly tested negative for von Willebrand disease. Some of these labs have been scanned in our EMR (2011). Previous bleeding history includes menorrhagia (endometrial ablation in 2014 for which she needed FFP and hysterectomy in 2019 [unclear whether she got FFP]), epistaxis since childhood (resolved after sinus surgery in 2010), gum bleeding on a daily basis with minimal trauma, and a recent episode of bright red blood per rectum in March 2021 (no EGD or colonoscopy). Previous dental procedures include cavity fillings. It is unclear whether she had any bleeding issues after that procedure. She has had 2 normal vaginal deliveries with hemorrhage but patient does not remember if any medical or surgical intervention was done. She had a C- section during her third and reports that the surgery took longer than anticipated. Referred to me in May 2021 for pre-operative clearance prior to elective inguinal hernia repair May 2021, PT 10 seconds, PTT 32.7 seconds, activity levels of factors II, V, IX, X, XI; activity levels of factor VIII elevated; no evidence of von Willebrand's disease; platelet function screen normal; platelet aggregometry notable showed mildly decreased aggregation to low dose ADP, collagen, and arachidonic acid but normal aggregation to high dose ADP and epinephrine (low and high dose). There was a normal stimulated dense granule release to all agonists. The ristocetin induced platelet aggregation showed a normal dose response. Overall, these findings were non-specific. July 2021, above labs repeated with the same result; TEG normal; fibrinogen antigen normal Updated Visit, April 03, 2022: Leana returns. Continues to have mild bruising on legs and arms. Figers and ankles feel swollen. TSH 0.08 - adjusting meds. Seeing POTS clinic tomorrow. Getting an US of kidney for possible mass repeated scheduled in August. Platelet microscopy pending still. Updated Visit, February 10, 2022: Leana's platelet genetic testing is unremarkable. She has multiple complaints of bruising on her breasts. Endorsing Breasts have bruises without contact, nipples change color for no reason. Getting random rashes Breaking out in sweats Getting sick frequently. Has had workup for POTS in the past but no recommendations. Updated Visit, November 18, 2021: Leana is 35 and comes in after we discussed her mammogram results showing what appears to be benign lymph nodes. Chaperoned breast exam noted below. Discussion on lack of findings - tender bilateral axillary exam but no palpable masses. Discussion and education on continued hormonal cycles continuing despite hysterectomy causing breast changes. Will consider MRI breast is future if needed. 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 Her step-father has also . Updated Visit, November 10, 2021: Leana is 35 yo and is having genetic testing done to ascertain a genetic platelet disorder. However, she had a Mammogram recently that was concerning for lymphadenopathy. I was unable to get the report myself and so she gave me some of the information over the telephone. She has some benign Lymph nodes noted on mammogram. She would like to have a breast exam to allay anxiety. Updated Visit, November 03, 2021: Transition of care Drenching night sweats - had COVID 10/2020 - sweats started in August, developed T2DM after COVID. Random rashes - red and blotchy circles. Swollen lymph node - not palpable On frequent prednisone tapers every month Mammograms last week 10/19/2021 - LN's noted on them. Will evaluate this further. 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 Patient is adopted and does not know her family history well. She has 3 boys who are relatively healthy. Her oldest son (age 16 years) has similar bleeding symptoms including easy gum bleeding and epistaxis as the patient. No substance abuse. MEDICATIONS AND ALLERGIES: Reviewed PHYSICAL EXAM BP 147/65 Pulse 74 Temp 36.6 C (97.9 F) (Temporal) Resp 16 Ht 162.6 cm (5' 4.02 ) Wt 99.3 kg (219 lb) LMP 2015 SpO2 98% BMI 37.57 kg/m Exam limited to gross visualization where appropriate due to COVID-19. Gen.: This is an age-appropriate patient in no acute distress. Head: Appears atraumatic with no visible lesions. Eyes: Pupils equally round and reactive to light, extraocular muscles are intact. Neck: Supple. Mouth: Masked. Respiratory: Appears to be respiring comfortably. Neurologic: Nonfocal to gross visualization. Alert and oriented 3. Psychiatric: No evidence of inappropriate anxiety or depression. Skin: Visible areas of skin without rash, lesions, wounds or petechiae. Prior exam for reference. Chaperoned (Jairo Perdomo) Breast exam - normal bilaterally - no LAD - no significant difference in nipple areola - although right is slightly darker than left. She was tender to deep palpation of both axilla and the axillary tail of her left breast. LABORATORY, IMAGING AND PATHOLOGY May 2021 PT 10 seconds, PTT 32.7 seconds, activity levels of factors II, V, IX, X, XI; activity levels of factor VIII elevated; no evidence of von Willebrand's disease Platelet function screen normal Platelet aggregometry notable showed mildly decreased aggregation to low dose ADP, collagen, and arachidonic acid but normal aggregation to high dose ADP and epinephrine (low and high dose). There was a normal stimulated dense granule release to all agonists. The ristocetin induced platelet aggregation showed a normal dose response. Overall, these findings were non-specific July 2021 Fibrinogen antigen 380 Fibrinogen activity 390 TEG normal Platelet aggregometry abnormal with a nonspecific pattern I spent a total of 20 minutes on the date of the service which included preparing to see the patient, [id number] patient care, completing clinical documentation, obtaining and/or reviewing separately obtained history, performing a medically appropriate examination, counseling and educating the patient/family/caregiver, ordering medications, tests, or procedures, independently interpreting results (not separately reported) and communicating results to the patient/family/caregiver. Fuentes Amaral MD, CPE Hematology and Oncology Services Provided at: [place], [place] CC: Cas Cronin documented in this encounter [facility] 04-03-2022 Nurse Note Formatting of this note might be differe nt from the original. Patient is still bruising. Elizabeth Rodriges MA documented in this encounter [facility] 04-03-2022 Miscellaneo us Notes Formatting of this note might be differe nt from the original. Images from the original note were not included. documented in this encounter [facility] 03-21-2022 Miscellaneo us Notes Formatting of this note might be differe nt from the original. Received call from pt stating she was not able to get her PLT lab test done in [place] d/t them no longer doing them on or fridays so she needs to move out her appt with Dr Salas so she has time to try again to get lab done. Pt transferred to assistant front office manager to reschedule f/u appt. Yancy León RN documented in this encounter [facility] 02-28-2022 Hospital Discharge instruction s Patient Education 02/28/2022 08:38:24 Urethral Stricture Urethral Stricture Urethral stricture is narrowing of the tube (urethra) that carries urine from the bladder out of the body. The urethra can become narrow due to scar tissue from an injury or infection. This can make it difficult to pass urine. In women, the urethra opens above the vaginal opening. In men, the urethra opens at the tip of the penis, and the urethra is much longer than it is in women. Because of the length of the male urethra, urethral stricture is much more common in men. This condition is treated with surgery. What are the causes? In both men and women, common causes of urethral stricture include: Urinary tract infection (UTI). Sexually transmitted infection (STI). Use of a tube placed into the urethra to drain urine from the bladder (urinary catheter). Urinary tract surgery. In men, common causes of urethral stricture include: A severe injury to the pelvis. Prostate surgery. Injury to the penis. In many cases, the cause of urethral stricture is not known. What increases the risk? You are more likely to develop this condition if you: Are male. Men who have had prostate surgery are at risk of developing this condition. Use a urinary catheter. Have had urinary tract surgery. What are the signs or symptoms? The main symptom of this condition is difficulty passing urine. This may cause decreased urine flow, dribbling, or spraying of urine. Other symptom of this condition may include: Frequent UTIs. Blood in the urine. Pain when urinating. Swelling of the penis in men. Inability to pass urine (urinary obstruction). How is this diagnosed? This condition may be diagnosed based on: Your medical history and a physical exam. Urine tests to check for infection or bleeding. X-rays. Ultrasound. Retrograde urethrogram. This is a type of test in which dye is injected into the urethra and then an X-ray is taken. Urethroscopy. This is when a thin tube with a light and camera on the end (urethroscope) is used to look at the urethra. How is this treated? This condition is treated with surgery. The type of surgery that you have depends on the severity of your condition. You may have: Urethral dilation. In this procedure, the narrow part of the urethra is stretched open (dilated) with dilating instruments or a small balloon. Urethrotomy. In this procedure, a urethroscope is placed into the urethra, and the narrow part of the urethra is cut open with a surgical blade inserted through the urethroscope. Open surgery. In this procedure, an incision is made in the urethra, the narrow part is removed, and the urethra is reconstructed. Follow these instructions at home: Take rgyj-fwx-npuwzdl and prescription medicines only as told by your health care provider. If you were prescribed an antibiotic medicine, take it as told by your health care provider. Do not stop taking the antibiotic even if you start to feel better. Drink enough fluid to keep your urine pale yellow. Keep all follow-up visits as told by your health care provider. This is important. Contact a health care provider if: You have signs of a urinary tract infection, such as: ?Frequent urination or passing small amounts of urine frequently. ?Needing to urinate urgently. ?Pain or burning with urination. ?Urine that smells bad or unusual. ?Cloudy urine. ?Pain in the lower abdomen or back. ?Trouble urinating. ?Blood in the urine. ?Vomiting or being less hungry than normal. ?Diarrhea or abdominal pain. ?Vaginal discharge, if you are female. Your symptoms are getting worse instead of better. Get help right away if: You cannot pass urine. You have a fever. You have swelling, bruising, or discoloration of your genital area. This includes the penis, scrotum, and inner thighs for men, and the outer genital organs (vulva) and inner thighs for women. You develop swelling in your legs. You have difficulty breathing. Summary Urethral stricture is narrowing of the tube (urethra) that carries urine from the bladder out of the body. The urethra can become narrow due to scar tissue from an injury or infection. This condition can make it difficult to pass urine. This condition is treated with surgery. The type of surgery that you have depends on the severity of your condition. Contact a health care provider if your symptoms get worse or you have signs of a urinary tract infection. This information is not intended to replace advice given to you by your health care provider. Make sure you discuss any questions you have with your health care provider. Document Released: 02/18/2016 Document Revised: 09/04/2018 Document Reviewed: 09/04/2018 [employer] Patient Education 2020 [employer]. Follow Up Care 12/22/2021 14:08:59 With:LORAINE RUBALCAVA PA-C, URL Address: [address] [facility] [place] [address] When: Unknown [facility] Work Phone: [phone] 02-27-2022 Note HNO ID: [id number] Author: Tesfaye Whitman RPh Service: ? Author Type: Pharmacist Type: Progress Notes Filed: 02/27/2022 10:33 AM Note Text: Refill Authorization Consent Leana Tran was encountered by text or [employer] message to obtain consent for pharmacist managed refill authorization. Patient gives consent to the authorization of prescriptions by a pharmacist. Tesfaye Whitman RPh 02/27/2022 [facility] 02-27-2022 History of Present illness Narrative Formatting of this note might be differe nt from the original. Refill Authorization Consent Leana Tran was encountered by text or mychart message to obtain consent for pharmacist managed refill authorization. Patient gives consent to the authorization of prescriptions by a pharmacist. Tesfaye Whitman RPh 02/27/2022 documented in this encounter [facility] 02-24-2022 [facility] Notes Formatting of this note might be differe nt from the original. PA submitted via covermymeds. Kurt TRAN ([place]: [id number]) Your information has been submitted to [facility]. To check for an updated outcome later, reopen this PA request from your dashboard. If [facility] has not responded to your request within 24 hours, contact [facility] at . If you think there may be a problem with your PA request, use our live chat feature at the bottom right. Vikash Oreilly RN February 24, 2022 3:16 PM documented in this encounter [facility] 02-20-2022 [facility] Notes Formatting of this note might be differe nt from the original. Ok with me Informed Lindsey of Dr Salas's response. Lindsey states that [facility] will only except if pt was drawn on and pt was drawn on Sunday so they are sending it out today to [facility], unless Dr Salas would like pt to come back in for a redraw so it can be sent to [facility]. Yancy León RN Colindres would be good. Received call from Melodie at [facility] in [place] stating pt had her platelet transmission lab done there but it is a lab test that they send out to other labs and they wanted to know if Dr Salas has a preference on what lab they send it to d/t different labs running the test different ways. ZACH: Please advise. Yancy León RN documented in this encounter [facility] 02-17-2022 Jan zimmerman Notes Formatting of this note might be differe nt from the original. Records faxed to Dr. Cronin. Pt would like referral sent to Setphon Cronin MD @ [facility]. Lauren, will you please fax records when order is signed? Demo in your box, thanks! PSS: Please set pt up with referral to her preferred performance improvement coordinator. Thank you. Yancy León RN Received call from pt stating Dr Salas told her to see performance improvement coordinator but their office needs a referral. ZACH: Order pending, please review and sign. Yancy León RN documented in this encounter [facility] 02-13-2022 Note HNO ID: [id number] Author: Meena Grissom MD Service: ? Author Type: Physician Type: Progress Notes Filed: 02/13/2022 8:31 PM Note Text: Discussed with scheduling, appointment will be rescheduled. Patient logged in late- had technical issues with Zoom. [facility] 02-13-2022 History of Present illness Narrative Formatting of this note might be differe nt from the original. Discussed with scheduling, appointment will be rescheduled. Patient logged in late- had technical issues with Zoom. documented in this encounter [facility] 02-10-2022 Note HNO ID: [id number] Author: Fuentes Amaral MD Service: ? Author Type: Physician Type: Progress Notes Filed: 02/12/2022 2:10 PM Note Text: HEMATOLOGY FOLLOW UP February 10, 2022 ([place]ir) Some elements in this clinic note that are critical to medical decision making have been carefully reviewed and included from a prior clinic note dated: November 18, 2021 (Munir) PCP and other physicians involved in patient's care: Cas Dowell (PCP), Rajinder Collins (surgery), Rubens Tim (ObGyn), DIAGNOSIS: Undiagnosed bleeding disorder, work-up pending - transition of care. 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 She has had multiple surgical, obstetric, gynecologic, and dental procedures in the past. Some of these procedures have been associated with postoperative bleeding complications. Patient also has multiple bleeding issues such as easy gum bleeding on a regular basis. Her family history is unclear given that she was adopted but one of her sons has symptoms similar to her's (recurrent epistaxis and easy gum bleeding). Work-up for bleeding disorder in May 2021 showed an abnormal platelet aggregometry. There was mildly decreased aggregation to low dose ADP, collagen, and arachidonic acid but normal aggregation to high dose ADP and epinephrine (low and high dose). These findings were considered to be nonspecific. Patient does not take any aspirin or NSAIDs. 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 She has seen medical genetics and work-up is ongoing pending insurance authorization. Based on her previous surgical experiences, any surgical bleeding may be minimized by using FFP and platelet transfusions prior to the procedure. Follow up after genetics work-up is complete which she was encouraged to pursue. Additional constitutional symptoms will need additional workup. Reviewed Mammography showing axillary tail lymph nodes. They appeared benign and today's exam was normal. If she remains concerned, we can re-examine her and set up a breast MRI. PLAN: Platelet electron microscopy Call results when available Consider functional medicine referral for DM and PCOS HPI: Patient has an extensive and longstanding history of bleeding issues. In 2008, she was seen by Dr. Shirley and was noted to have an elevated PTT of 36 seconds. This corrected by addition of FFP. 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 She reportedly tested negative for von Willebrand disease. Some of these labs have been scanned in our EMR (2011). Previous bleeding history includes menorrhagia (endometrial ablation in 2014 for which she needed FFP and hysterectomy in 2019 [unclear whether she got FFP]), epistaxis since childhood (resolved after sinus surgery in 2010), gum bleeding on a daily basis with minimal trauma, and a recent episode of bright red blood per rectum in March 2021 (no EGD or colonoscopy). Previous dental procedures include cavity fillings. It is unclear whether she had any bleeding issues after that procedure. She has had 2 normal vaginal deliveries with hemorrhage but patient does not remember if any medical or surgical intervention was done. She had a during her third and reports that the surgery took longer than anticipated. Referred to me in May 2021 for pre-operative clearance prior to elective inguinal hernia repair May 2021, PT 10 seconds, PTT 32.7 seconds, activity levels of factors II, V, IX, X, XI; activity levels of factor VIII elevated; no evidence of von Willebrand's disease; platelet function screen normal; platelet aggregometry notable showed mildly decreased aggregation to low dose ADP, collagen, and arachidonic acid but normal aggregation to high dose ADP and epinephrine (low and high dose). There was a normal stimulated dense granule release to all agonists. The ristocetin induced platelet aggregation showed a normal dose response. Overall, these findings were non-specific. July 2021, above labs repeated with the same result; TEG normal; fibrinogen antigen normal Updated Visit, February 10, 2022: Leana's platelet genetic testing is unremarkable. She has multiple complaints of bruising on her breasts. Endorsing Breasts have bruises without contact, nipples change color for no reason. Getting random rashes Breaking out in sweats Getting sick frequently. Has had workup for POTS in the past but no recommendations. Updated Visit, November 18, 2021: Leana is 35 and comes in after we discussed her mammogram results showing what appears to be benign lymph nodes. Chaperoned breast exam noted below. Discussion on lack of findings - tender bilateral axillary exam but no palpable masses. Discussion and education on continued hormonal cycles continuing despite hysterectomy lou (more content not included)... [facility] 02-10-2022 Instruction s Fuentes Amaral MD - 02/10/2022 3:00 PM EST Platelet electron microscopy Call results when available Consider functional medicine referral for DM and PCOS documented in this encounter [facility] 02-10-2022 History of Present illness Narrative Formatting of this note might be differe nt from the original. Images from the original note were not included. HEMATOLOGY FOLLOW UP February 10, 2022 (Munir) Some elements in this clinic note that are critical to medical decision making have been carefully reviewed and included from a prior clinic note dated: November 18, 2021 (Munir) PCP and other physicians involved in patient's care: Cas Dowell (PCP), Rajinder Collins (surgery), Rubens Tim (ObGyn), DIAGNOSIS: Undiagnosed bleeding disorder, work-up pending - transition of care. 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 She has had multiple surgical, obstetric, gynecologic, and dental procedures in the past. Some of these procedures have been associated with postoperative bleeding complications. Patient also has multiple bleeding issues such as easy gum bleeding on a regular basis. Her family history is unclear given that she was adopted but one of her sons has symptoms similar to her's (recurrent epistaxis and easy gum bleeding). Work-up for bleeding disorder in May 2021 showed an abnormal platelet aggregometry. There was mildly decreased aggregation to low dose ADP, collagen, and arachidonic acid but normal aggregation to high dose ADP and epinephrine (low and high dose). These findings were considered to be nonspecific. Patient does not take any aspirin or NSAIDs. 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 She has seen medical genetics and work-up is ongoing pending insurance authorization. Based on her previous surgical experiences, any surgical bleeding may be minimized by using FFP and platelet transfusions prior to the procedure. Follow up after genetics work-up is complete which she was encouraged to pursue. Additional constitutional symptoms will need additional workup. Reviewed Mammography showing axillary tail lymph nodes. They appeared benign and today's exam was normal. If she remains concerned, we can re-examine her and set up a breast MRI. PLAN: Platelet electron microscopy Call results when available Consider functional medicine referral for DM and PCOS HPI: Patient has an extensive and longstanding history of bleeding issues. In 2008, she was seen by Dr. Shirley and was noted to have an elevated PTT of 36 seconds. This corrected by addition of FFP. 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 She reportedly tested negative for von Willebrand disease. Some of these labs have been scanned in our EMR (2011). Previous bleeding history includes menorrhagia (endometrial ablation in 2014 for which she needed FFP and hysterectomy in 2019 [unclear whether she got FFP]), epistaxis since childhood (resolved after sinus surgery in 2010), gum bleeding on a daily basis with minimal trauma, and a recent episode of bright red blood per rectum in March 2021 (no EGD or colonoscopy). Previous dental procedures include cavity fillings. It is unclear whether she had any bleeding issues after that procedure. She has had 2 normal vaginal deliveries with hemorrhage but patient does not remember if any medical or surgical intervention was done. She had a C- section during her third and reports that the surgery took longer than anticipated. Referred to me in May 2021 for pre-operative clearance prior to elective inguinal hernia repair May 2021, PT 10 seconds, PTT 32.7 seconds, activity levels of factors II, V, IX, X, XI; activity levels of factor VIII elevated; no evidence of von Willebrand's disease; platelet function screen normal; platelet aggregometry notable showed mildly decreased aggregation to low dose ADP, collagen, and arachidonic acid but normal aggregation to high dose ADP and epinephrine (low and high dose). There was a normal stimulated dense granule release to all agonists. The ristocetin induced platelet aggregation showed a normal dose response. Overall, these findings were non-specific. July 2021, above labs repeated with the same result; TEG normal; fibrinogen antigen normal Updated Visit, February 10, 2022: Leana's platelet genetic testing is unremarkable. She has multiple complaints of bruising on her breasts. Endorsing Breasts have bruises without contact, nipples change color for no reason. Getting random rashes Breaking out in sweats Getting sick frequently. Has had workup for POTS in the past but no recommendations. Updated Visit, November 18, 2021: Leana is 35 and comes in after we discussed her mammogram results showing what appears to be benign lymph nodes. Chaperoned breast exam noted below. Discussion on lack of findings - tender bilateral axillary exam but no palpable masses. Discussion and education on continued hormonal cycles continuing despite hysterectomy causing breast changes. Will consider MRI breast is future if needed. 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 Her step-father has also . Updated Visit, November 10, 2021: Leana is 35 yo and is having genetic testing done to ascertain a genetic platelet disorder. However, she had a Mammogram recently that was concerning for lymphadenopathy. I was unable to get the report myself and so she gave me some of the information over the telephone. She has some benign Lymph nodes noted on mammogram. She would like to have a breast exam to allay anxiety. Updated Visit, November 03, 2021: Transition of care Drenching night sweats - had COVID 10/2020 - sweats started in August, developed T2DM after COVID. Random rashes - red and blotchy circles. Swollen lymph node - not palpable On frequent prednisone tapers every month Mammograms last week 10/19/2021 - LN's noted on them. Will evaluate this further. 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 Patient is adopted and does not know her family history well. She has 3 boys who are relatively healthy. Her oldest son (age 16 years) has similar bleeding symptoms including easy gum bleeding and epistaxis as the patient. No substance abuse. MEDICATIONS AND ALLERGIES: Reviewed PHYSICAL EXAM LMP 2015 General:This is an age-appropriate patient in no acute distress. Head: Atraumatic, symmetric with no lesions visible. Eyes: Pupils equally round and reactive to light, extraocular muscles intact. Neck: Supple Mouth: Mucous membranes are moist, no thrush is noted. Lungs: Clear to auscultation bilaterally with no wheezes crackles or rales. Cardiovascular: Regular rate and rhythm with no murmurs or gallops. Peripheral pulses: Normal. Gastrointestinal: Soft, nontender, normoactive bowel sounds, with no appreciable hepatosplenomegaly. Musculoskeletal: No appreciable bony abnormalities or tenderness. Extremities: Lower extremities without edema. Neurologic: Nonfocal to gross visualization. Alert and oriented 3. Psychiatric: No evidence of inappropriate anxiety or depression. Skin: No overt rashes wounds or petechiae. Lymph node exam: No appreciable lymphadenopathy in cervical supraclavicular or axillary lymph node chains. Chaperoned (Jairo Perdomo) Breast exam - normal bilaterally - no LAD - no significant difference in nipple areola - although right is slightly darker than left. She was tender to deep palpation of both axilla and the axillary tail of her left breast. LABORATORY, IMAGING AND PATHOLOGY May 2021 PT 10 seconds, PTT 32.7 seconds, activity levels of factors II, V, IX, X, XI; activity levels of factor VIII elevated; no evidence of von Willebrand's disease Platelet function screen normal Platelet aggregometry notable showed mildly decreased aggregation to low dose ADP, collagen, and arachidonic acid but normal aggregation to high dose ADP and epinephrine (low and high dose). There was a normal stimulated dense granule release to all agonists. The ristocetin induced platelet aggregation showed a normal dose response. Overall, these findings were non-specific July 2021 Fibrinogen antigen 380 Fibrinogen activity 390 TEG normal Platelet aggregometry abnormal with a nonspecific pattern I spent a total of 30 minutes on the date of the service which included preparing to see the patient, [id number] patient care, completing clinical documentation, obtaining and/or reviewing separately obtained history, performing a medically appropriate examination, counseling and educating the patient/family/caregiver, ordering medications, tests, or procedures, independently interpreting results (not separately reported) and communicating results to the patient/family/caregiver. Fuentes Amaral MD, [facility] Oncology [facility] Provided at: [place], [place] CC: Cas Dowell documented in this encounter [facility] 02-01-2022 [facility] Notes Formatting of this note might be differe nt from the original. Images from the original note were not included. documented in this encounter [facility] 01-23-2022 Note [id number] [facility] 01-23-2022 Note Cystoscopy with Urethral Dilation ? Voiding after the procedure: there may be some pain, urethral bleeding, burning, urgency, frequency and blood tinged urine following the procedure. These symptoms usually resolve within 2-5 days. Drink the amount of fluid it takes to keep the urine pink to yellow or clear in color. Drinking enough water and fluids will help to ease any discomfort after your procedure. ? If you are having problems that seem out of the ordinary, please call. ? If unable to contact your physician and you feel it is an emergency, go to the nearest emergency room or call 911 ? Diet ? you may resume your normal diet. ? Activity ? you may resume your normal activities ? Call if you have a fever over 100 degrees [facility] 01-23-2022 Hospital Discharge instruction s Patient Education 01/23/2022 13:55:42 EU - Cystoscopy with Urethral Dilation Discharge Instructions (Custom) Cystoscopy with Urethral Dilation Voiding after the procedure: there may be some pain, urethral bleeding, burning, urgency, frequency and blood tinged urine following the procedure. These symptoms usually resolve within 2-5 days. Drink the amount of fluid it takes to keep the urine pink to yellow or clear in color. Drinking enough water and fluids will help to ease any discomfort after your procedure. If you are having problems that seem out of the ordinary, please call. If unable to contact your physician and you feel it is an emergency, go to the nearest emergency room or call 911 Diet you may resume your normal diet. Activity you may resume your normal activities Call if you have a fever over 100 degrees Follow Up Care 12/22/2021 14:21:18 With:LORAINE RUBALCAVA Address: [address] [place] [address]. [place] [address] [facility] (1) When:6 weeks Comments:Call for followup appointment in about six weeks. As discussed, PONCE Hargrove can further follow up on the left kidney abnormality noted on the kidney ultrasound. 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 [facility] 01-16-2022 Note HNO ID: [id number] Author: Bhargavi Saldana PA-C Service: ? Author Type: Physician Youth Ministry Director Type: Progress Notes Filed: 01/16/2022 8:58 AM Note Text: [facility] - Follow up Virtual Visit During this COVID-19 pandemic, patient's headache clinic evaluation was scheduled as a virtual visit using the following platform Zoom - patient currently located in [place] Leana Tran was identified by name and and consented to the video evaluation and its limitations. Based on this evaluation it may be necessary for them to schedule a follow up evaluation with me or other neurologists for formal physical examination and if necessary,other studies. Accompanied by: Self Primary Problem List: ACTIVE PROBLEM LIST Coagulopathy (Hcc) Arachnoid Cyst of Pituitary Gland Symptomatic Bradycardia Blood Pressure Instability Subjective Muscle Weakness Physical Deconditioning Transient Diplopia Orthostatic Lightheadedness Screening for Endocrine Disorder Primary Hypothyroidism Moderate Persistent Asthma Without Complication Gastroesophageal Reflux Disease Allergic Rhinitis Allergic Reaction to Contrast Dye Drug Reaction Adverse Food Reaction Diffuse Pain Decreased Activity Tolerance Orthostatic Intolerance Palpitations Chief Complaint: Ajovy follow up Impression and Plan from last visit: 10/19/21 with me IMPRESSION: Leana Tran is a 35 year old year old female, with a history of chronic migraine, arachnoid cyst of pituitary gland, asthma, cholelithiasis, depression, GERD, hypothyroidism, IBS, KATELIN on CPAP, PTSD and pseudotumor cerebri following up today virtually for migraines. Her neurological examination is essentially normal at this visit. Minimal improvement on emgality and has experienced flu like symptoms after two of the injections. Will discontinue and replace with Ajov - she will wait until 11/10/21 to inject first dose. Does not wish to restart Botox PREEMPT Protocol at this time but will consider. Will also consider aimovig or vyepti. Patient verbalized understanding and agreed to treatment plan. Labs are up to date. She will follow up in 3 months or sooner if needed. PLAN: Continue zonisamide 100mg, lamictal (with an outside department), zoloft (with an outside department) Discontinue emgality 3. Continue nurtec, ubrelvy (with an outside department) as needed 4. Start Ajovy once monthly 5. Follow up 3 months, PRN Interval Headache History: Leana Tran is a 36 year old year old female, with a history of chronic migraine, arachnoid cyst of pituitary gland, asthma, cholelithiasis, depression, GERD, hypothyroidism, IBS, KATELIN on CPAP, PTSD and pseudotumor cerebri following up today virtually for migraines. Since the last visit, the patient states that her headaches have improved. She injects Ajovy into her abdomen and denies injection site rxn or other ASE. Recently has been sick in the hospital ([facility]) and is currently on outpatient steroids. Feels ajovy works better than emgality. Did have some flu like symptoms for 2 days but were more mild - only happened with first injection. Nurtec and Ubrelvy are good rescue medications. Headache 1 Onset: - Years - worse in the last year Location: right Quality/Description: sharp, burning and throbbing Associated Symptoms: Photophobia: yes Phonophobia: yes Nausea: yes Vomiting: yes Worse with activity: yes Number of migraine headache days/month: 4 Migraine headache severity: 7/10 Number of NON-migraine headache days/month: 16 Number of headache free days/month: 10 Aura: right upper and lower extremity numbness/tingling and weakness along with vision abnormalities which is binocular with kaleidoscope vision alongside her headaches. Days missed from work or school in the last month: 0 days Preventative: zonisamide 100mg, lamictal (with an outside department), zoloft (with an outside department), Ajovy Abortive: nurtec, ubrelvy (with an outside department) Medications effective? yes # of doses of abortive medications per month: 4 Analgesic Butalbital/acetaminophen/caffeine (Fioricet) Anti-Convulsant Lamotrigine (Lamictal) Topiramate (Topamax, Trokendi XL, Qudexy) Zonisamide (Zonegram) Anti-Depressant and Antipsychotic Citalopram (Celexa) Fluoxetine (Prozac) Sertraline (Zoloft) Anti-Migraine Rizatriptan (Maxalt) Sumatriptan (Imitrex, Sumavel) MABs Fremanezumab (Ajovy) Galcanezumab (Emgality) GEPANTS Ubrogepant (Ubrelvy) Rimegepant (Nurtec) Botulinum Toxin Onabotulinum Toxin A (Botox) 3 rounds Supplements Magnesium PAST MEDICAL HISTORY Diagnosis Date Arachnoid cyst of pituitary gland Asthma Bulging of cervical intervertebral disc C4-C7 Cholelithiases COVID-19 10/2020 Depression GERD (gastroesophageal reflux disease) Hypercoagulable state (HCC) Hypothyroid IBS (irritable bowel syndrome) KATELIN on CPAP Palpitations Platelet di (more content not included)... [facility] 01-16-2022 History of Present illness Narrative Formatting of this note is different fro m the original. [facility] - Follow up Virtual Visit During this COVID-19 pandemic, patient's headache clinic evaluation was scheduled as a virtual visit using the following platform Zoom - patient currently located in [place] Leana Tran was identified by name and and consented to the video evaluation and its limitations. Based on this evaluation it may be necessary for them to schedule a follow up evaluation with me or other neurologists for formal physical examination and if necessary,other studies. Accompanied by: Self Primary Problem List: ACTIVE PROBLEM LIST Coagulopathy (Hcc) Arachnoid Cyst of Pituitary Gland Symptomatic Bradycardia Blood Pressure Instability Subjective Muscle Weakness Physical Deconditioning Transient Diplopia Orthostatic Lightheadedness Screening for Endocrine Disorder Primary Hypothyroidism Moderate Persistent Asthma Without Complication Gastroesophageal Reflux Disease Allergic Rhinitis Allergic Reaction to Contrast Dye Drug Reaction Adverse Food Reaction Diffuse Pain Decreased Activity Tolerance Orthostatic Intolerance Palpitations Chief Complaint: Ajovy follow up Impression and Plan from last visit: 10/19/21 with me IMPRESSION: Leana Tran is a 35 year old year old female, with a history of chronic migraine, arachnoid cyst of pituitary gland, asthma, cholelithiasis, depression, GERD, hypothyroidism, IBS, KATELIN on CPAP, PTSD and pseudotumor cerebri following up today virtually for migraines. Her neurological examination is essentially normal at this visit. Minimal improvement on emgality and has experienced flu like symptoms after two of the injections. Will discontinue and replace with Ajov - she will wait until 11/10/21 to inject first dose. Does not wish to restart Botox PREEMPT Protocol at this time but will consider. Will also consider aimovig or vyepti. Patient verbalized understanding and agreed to treatment plan. Labs are up to date. She will follow up in 3 months or sooner if needed. PLAN: Continue zonisamide 100mg, lamictal (with an outside department), zoloft (with an outside department) Discontinue emgality 3. Continue nurtec, ubrelvy (with an outside department) as needed 4. Start Ajovy once monthly 5. Follow up 3 months, PRN Interval Headache History: Leana Tran is a 36 year old year old female, with a history of chronic migraine, arachnoid cyst of pituitary gland, asthma, cholelithiasis, depression, GERD, hypothyroidism, IBS, KATELIN on CPAP, PTSD and pseudotumor cerebri following up today virtually for migraines. Since the last visit, the patient states that her headaches have improved. She injects Ajovy into her abdomen and denies injection site rxn or other ASE. Recently has been sick in the hospital ([facility]) and is currently on outpatient steroids. Feels ajovy works better than emgality. Did have some flu like symptoms for 2 days but were more mild - only happened with first injection. Nurtec and Ubrelvy are good rescue medications. Headache 1 Onset: - Years - worse in the last year Location: right Quality/Description: sharp, burning and throbbing Associated Symptoms: Photophobia: yes Phonophobia: yes Nausea: yes Vomiting: yes Worse with activity: yes Number of migraine headache days/month: 4 Migraine headache severity: 7/10 Number of NON-migraine headache days/month: 16 Number of headache free days/month: 10 Aura: right upper and lower extremity numbness/tingling and weakness along with vision abnormalities which is binocular with kaleidoscope vision alongside her headaches. Days missed from work or school in the last month: 0 days Preventative: zonisamide 100mg, lamictal (with an outside department), zoloft (with an outside department), Ajovy Abortive: nurtec, ubrelvy (with an outside department) Medications effective? yes # of doses of abortive medications per month: 4 Analgesic Butalbital/acetaminophen/caffeine (Fioricet) Anti-Convulsant Lamotrigine (Lamictal) Topiramate (Topamax, Trokendi XL, Qudexy) Zonisamide (Zonegram) Anti-Depressant and Antipsychotic Citalopram (Celexa) Fluoxetine (Prozac) Sertraline (Zoloft) Anti-Migraine Rizatriptan (Maxalt) Sumatriptan (Imitrex, Sumavel) MABs Fremanezumab (Ajovy) Galcanezumab (Emgality) GEPANTS Ubrogepant (Ubrelvy) Rimegepant (Nurtec) Botulinum Toxin Onabotulinum Toxin A (Botox) 3 rounds Supplements Magnesium PAST MEDICAL HISTORY Diagnosis Date Arachnoid cyst of pituitary gland Asthma Bulging of cervical intervertebral disc C4-C7 Cholelithiases COVID-19 10/2020 Depression GERD (gastroesophageal reflux disease) Hypercoagulable state (HCC) Hypothyroid IBS (irritable bowel syndrome) KATELIN on CPAP Palpitations 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 Pseudotumor cerebri PTSD (post-traumatic stress disorder) PAST SURGICAL HISTORY Procedure Laterality Date ABDOMINAL SURGERY HX 2009 exploration APPENDECTOMY 2008 DELIVERY ONLY HYSTERECTOMY NOSE SURGERY HX 2010 REMOVAL GALLBLADDER TUBAL LIGATION HX ALLERGIES Allergen Reactions Cefaclor Shortness of Breath, Anaphylaxis, Swelling Other reaction(s): Unknown Iodinated Contrast * Anaphylaxis Tolerated with pre-medication on 09/22/21 Other reaction(s): Unknown Does not tolerate with pre-medication Fish Containing Pro* Hives Shellfish Derived Hives Aleve [Naproxen] Angioedema Aspirin Angioedema Ceftin [Cefuroxime * Shortness of Breath Clindamycin Rash, Shortness of Breath Erythromycin Swelling, Shortness of Breath, Unknown Eucalyptus Anaphylaxis Gatifloxacin Diarrhea Lavender (Lavandula* Anaphylaxis Penicillin G Benzat* Unknown Penicillins Rash, Itching Sulfa (Sulfonamide * Swelling, Shortness of Breath Vioxx [Rofecoxib] Unknown Froylan 28 [Drospirenon* Other: See Comments Skin discoloration of feet with OCPs Latex Rash, Itching, Unknown Skin cracks and bleeds Levofloxacin Rash Current Medications: arformoterol (BROVANA) 15 mcg/2 mL nebulizer solution^Inhale 2 mL as instructed every 12 hours.^Disp: 120 mL^Rfl: 5 levalbuterol tartrate HFA 45 mcg/actuation inhaler^Inhale 1-2 Puffs as instructed every 4 hours as needed for wheezing/shortness of breath.^Disp: 1 Each^Rfl: 3 budesonide (PULMICORT) 0.5 mg/2 mL nebulizer solution^Use 2 mL via nebulizer every 12 hours. Inhale over 5-15 minutes^Disp: 120 mL^Rfl: 5 SITagliptin (JANUVIA) 100 mg tablet^Take 1 tablet by mouth once daily.^Disp: ^Rfl: Magnesium 250 mg tab^Take 250 mg by mouth.^Disp: ^Rfl: Flaxseed Oil oil^Take 1,000 mg by mouth once daily.^Disp: ^Rfl: Ascorbic Acid 100 mg tablet^Take 100 mg by mouth once daily.^Disp: ^Rfl: Zinc 50 mg tab^Take by mouth.^Disp: ^Rfl: fremanezumab-vfrm subcutaneus auto-injector 225 mg/1.5 mL (AJOVY)^Inject 1.5 mL subcutaneously once every month. Do not shake.^Disp: 1.5 mL^Rfl: 11 UBRELVY 100 mg tablet^TAKE 1 TABLET BY MOUTH AT ONSET OF MIGRAINE. MAY REPEAT IN 2 HOURS NEEDED. MAX 2 TABLET IN 24 HOURS^Disp: ^Rfl: baclofen (LIORESAL) 10 mg tablet^Take 10-20 mg by mouth at bedtime as needed.^Disp: ^Rfl: famotidine (PEPCID) 40 mg tablet^Take 40 mg by mouth as needed.^Disp: ^Rfl: cetirizine (ZYRTEC) 10 mg tablet^Take 10 mg by mouth as needed.^Disp: ^Rfl: diphenhydrAMINE (BENADRYL) 25 mg tablet^Take 50 mg by mouth every 6 hours as needed.^Disp: ^Rfl: LORazepam (ATIVAN) 0.5 mg^Take 0.5 mg by mouth twice daily as needed.^Disp: ^Rfl: zonisamide (ZONEGRAN) 100 mg capsule^Take 1 capsule by mouth once daily.^Disp: 90 capsule^Rfl: 3 rimegepant (NURTEC ODT) 75 mg disintegrating tablet^Take 1 tablet by mouth once daily as needed. No more than 1 dose in 24 hours.^Disp: 8 tablet^Rfl: 11 prazosin (MINIPRESS) 5 mg cap^Take 5 mg by mouth daily at bedtime. ^Disp: ^Rfl: mecobalamin, vitamin B12, 1,000 mcg ODT^once daily.^Disp: ^Rfl: VITAMIN D-3 125 mcg (5,000 unit) tab^Take 5,000 Units by mouth once daily.^Disp: ^Rfl: EPINEPHrine 0.1 mg/0.1 mL AutoInjector^as needed. ^Disp: ^Rfl: lamoTRIgine (LAMICTAL) 150 mg tablet^Take 150 mg by mouth daily at bedtime. ^Disp: ^Rfl: sertraline (ZOLOFT) 100 mg tablet^Take 200 mg by mouth daily at bedtime. ^Disp: ^Rfl: levothyroxine (SYNTHROID) 112 mcg tablet^Take 112 mcg by mouth daily before breakfast. Takes 1.5 tablets on Wednesdays ^Disp: ^Rfl: montelukast (SINGULAIR) 10 mg tablet^Take 10 mg by mouth once daily. ^Disp: ^Rfl: I have reviewed the Health Status Assessment responses and discussed these with the patient: yes Bhargavi Saldana PA-C HEADACHE SCORES: Headache Questions 07/29/2021 10/17/2021 01/13/2022 ID Migraine Screener: - - - ER visits in the last year: - - - ER visits since last office visit: 0 0 0 Hospital stays in the last year: - - - Hospital stays since last office visit 0 0 0 Limited ADLs in the last month: 10 16 4 Days missed from work or school in the last month: 0 0 0 Days headache pain free in the last month: 2 5 10 Days per month with ALL of the following symptoms - decreased productivity, light sensitivity and nausea: 10 10 4 Initial improvement of headache after botox injection at last visit: No change Not applicable, I did not have a botox injection at my last visit Not applicable, I did not have a botox injection at my last visit PRN medication usage in the last month: 5 10 4 Patient impression of improvement since last visit: No change Minimally improved Much improved HIT-6 07/29/2021 10/17/2021 01/13/2022 HIT-6 66 (Severe impact) 64 (Severe impact) 62 (Severe impact) FANNY - 2/7 SCORES 10/08/2021 10/17/2021 01/13/2022 FANNY-2 Score 3 3 1 FANNY-7 Score 11 11 - Migraine Specific QOL - Higher scores indicate better HRQL 07/29/2021 10/17/2021 01/13/2022 Role Function-Restrictive Transformed Score (range: 0-100) 42.86 40 60 Role Function-Preventive Transformed Score (range: 0-100) 50 50 60 Emotional Function Transformed Score (range: 0-100) 53.33 40 60 PHQ-9 10/08/2021 10/17/2021 01/13/2022 Score 14 14 14 Studies to Review: No MRI Head/Brain - Last 2 Impressions MRI BRAIN WO/W IVCON Exam End: 06/16/2021 11:27 AM (Final result) Impression: IMPRESSION: Trace fluid in the left mastoid air cells, small likely retention cysts in the maxillary and right sphenoid sinuses, and trace right frontal and bilateral ethmoid sinus mucosal thickening.... MRI BRAIN WO/W IVCON Collected: 03/31/2016 2:08 PM (Final result) Impression: IMPRESSION: No acute intracranial findings. Chronic left mastoid sinus opacification.... MRA Head and/or Neck - Last 2 Impressions MRA BRAIN WO IVCON ([place]) Collected: 03/31/2016 1:36 PM (Final result) Impression: IMPRESSION: No acute intracranial findings. Chronic left mastoid sinus opacification. No evidence of venous sinus thrombosis. Unremarkable MRA brain and MRA neck. Cmm Inspector: ROBER Transcribe Date/Time: Mar 31 2016 2:40P Dictated by : PABLO ORELLANA MD This examination was interpreted and the report reviewed and electronically signed by: PABLO ORELLANA MD on Mar 31 2016 2:54PM EST CT Head/Brain - Last [address] BRAIN WO IVCON Exam End: 06/27/2021 2:42 PM (Final result) Impression: IMPRESSION: Normal examination of the brain. Mild paranasal sinus inflammatory change which could potentially contribute to headache. Cmm Inspector: ROBER Transcribe Date/Time: Jun 27 2021 3:07P Dictated by : CHRISTY ARMAS MD This examination was interpreted and the report reviewed and electronically signed by: CHRISTY ARMAS MD on Jun 27 2021 3:10PM EST Labs to Review: No - Most recent CMP and CBC below CMP 09/21/21 3 mo ago Protein, Total 6.3 - 8.0 g/dL 7.2 Albumin 3.9 - 4.9 g/dL 4.5 Calcium, Total 8.5 - 10.2 mg/dL 9.6 Bilirubin, Total 0.2 - 1.3 mg/dL 0.4 Alkaline Phosphatase 34 - 123 U/L 64 AST 13 - 35 U/L 14 ALT 7 - 38 U/L 28 Glucose 74 - 99 mg/dL 164 High BUN 7 - 21 mg/dL 9 Creatinine 0.58 - 0.96 mg/dL 0.90 Sodium 136 - 144 mmol/L 136 Potassium 3.7 - 5.1 mmol/L 4.0 Chloride 97 - 105 mmol/L 101 CO2 22 - 30 mmol/L 23 Anion Gap 9 - 18 mmol/L 12 Estimated Glomerular Filtration Rate >=60 mL/min/1.73m 85 CBC 09/21/21 3 mo ago (09/21/21) WBC 3.70 - 11.00 k/uL 7.18 RBC 3.90 - 5.20 m/uL 5.09 Hemoglobin 11.5 - 15.5 g/dL 14.6 Hematocrit 36.0 - 46.0 % 43.5 MCV 80.0 - 100.0 fL 85.5 MCH 26.0 - 34.0 pg 28.7 MCHC 30.5 - 36.0 g/dL 33.6 RDW-CV 11.5 - 15.0 % 11.9 Platelet Count 150 - 400 k/uL 225 MPV 9.0 - 12.7 fL 10.1 Absolute nRBC <0.01 k/uL <0.01 Review of Systems: Review of system: unchanged from the previous visit (sleep patterns, mood, energy, appetite, stress, exercising). Physical Examination: Vital Signs: No vital signs taken for this visit due to nature of virtual visit. LMP 2015 General: well appearing, in no acute distress, alert Pain Behaviors: no pain behaviors observed Neurological: Mental Status: Alert and oriented to person, place and time. Affect is normal. Speech is spontaneous and fluent without dysarthria. 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 Attention span and concentration are excellent. HEENT: Head is normocephalic and features were symmetric. Musculoskeletal: Patient able to sit up right in chair for entirety of visit. Cranial Nerves: III, IV, -EOMI: full. VII-face is symmetric without evidence of weakness. VIII-hearing intact. IMPRESSION: Migraine without aura and without status migrainosus, not intractable (primary encounter diagnosis) Leana Tran is a 36 year old year old female, with a history of chronic migraine, arachnoid cyst of pituitary gland, asthma, cholelithiasis, depression, GERD, hypothyroidism, IBS, KATELIN on CPAP, PTSD and pseudotumor cerebri following up today virtually for migraine. Her neurological examination is essentially normal at this visit. Stable on current regimen. Does not wish to make changes today. Labs are up to date. Patient verbalized understanding and agreed to treatment plan. She will follow up in 3 months or sooner or later depending on needs. PLAN: Continue zonisamide 100mg, lamictal (with an outside department), zoloft (with an outside department), Ajovy Continue nurtec, ubrelvy (with an outside department) as needed Follow up 3 months, PRN Prior Authorization: Leana Tran has been previously approved for Calcitonin Gene Related Peptide Monoclonal Antibody (CGRP MAB) (Fremanezumab). The patient has demonstrated the following: Patient reduction in overall migraine days: Yes Patient reduction in moderate-severe migraine days: Yes Individual has obtained clinical benefit deemed significant by individual or prescriber: Yes Patient's quality of life and ability to perform ADLs has improved: Yes We suggest the patient continue treatment with CGRP MAB Fremanezumab. The following preventative medications have been tried for three or more months without benefit: Anti-Convulsant Lamotrigine (Lamictal) Topiramate (Topamax, Trokendi XL, Qudexy) Zonisamide (Zonegram) Anti-Depressant and Antipsychotic Citalopram (Celexa) Fluoxetine (Prozac) Sertraline (Zoloft) MABs Fremanezumab (Ajovy) Galcanezumab (Emgality) Botulinum Toxin Onabotulinum Toxin A (Botox) 3 rounds Supplements Magnesium The following abortive medications have been tried but require high frequency use which can lead to Medication Overuse Headache: Analgesic Butalbital/acetaminophen/caffeine (Fioricet) Anti-Migraine Rizatriptan (Maxalt) Sumatriptan (Imitrex, Sumavel) GEPANTS Ubrogepant (Ubrelvy) Rimegepant (Nurtec) Leana Tran has been previously approved for an Oral Calcitonin Gene- Related Peptide Receptor Antagonist (GEPANT) Rimegepant for the treatment of acute migraine. The patient has demonstrated the following: Provider attests patient has had a positive clinical response: Yes Patient will not use with another Oral Calcitonin Gene-Related Peptide Receptor Antagonist (GEPANT): Yes Patient's quality of life and ability to perform ADLs has improved: Yes We suggest the patient continue treatment with GEPANT Rimegepant. The following preventative medications have been tried for three or more months without benefit: Anti-Convulsant Lamotrigine (Lamictal) Topiramate (Topamax, Trokendi XL, Qudexy) Zonisamide (Zonegram) Anti-Depressant and Antipsychotic Citalopram (Celexa) Fluoxetine (Prozac) Sertraline (Zoloft) MABs Fremanezumab (Ajovy) Galcanezumab (Emgality) Botulinum Toxin Onabotulinum Toxin A (Botox) 3 rounds Supplements Magnesium The following abortive medications have been tried but require high frequency use which can lead to Medication Overuse Headache: Analgesic Butalbital/acetaminophen/caffeine (Fioricet) Anti-Migraine Rizatriptan (Maxalt) Sumatriptan (Imitrex, Sumavel) GEPANTS Ubrogepant (Ubrelvy) Rimegepant (Nurtec) HEADACHE MANAGEMENT: (You are the primary guardian of your health and headache. Keep track of all medications: This includes the reason for use, side effects and benefits.) MEDICATION TREATMENT: Medications to Start Taking None Headache education was done. Discussed lifestyle modification including increased oral hydration, decreased caffeine, exercise and stress management. Discussed treatment options including preventive and acute medications, natural supplements, and infusion therapy. Discussed medication overuse headache and to limit use of acute treatments to no more than 2 days/week or 10 days/month. Discussed medication side effects, adverse reactions and drug interactions. Written educational materials and patient instructions outlining all of the above were given. RESEARCH: None at this time Follow-up: 3 months, PRN Level of Service: Virtual Visit 10 minutes Bhargavi Saldana PA-C Headache Section [facility] January 16, 2022 documented in this encounter [facility] 01-02-2022 Note HNO ID: [id number] Author: Jenny Borden Service: ? Author Type: ? Type: Progress Notes Filed: 01/02/2022 4:24 AM Note Text: Sleep Study Check-In Documentation Date: January 02, 2022 Name: Leana Tran Patient was accompanied by Self. Location: [place] Latex allergy: Yes Tape allergy: No Current medications were reviewed with the patient:Yes Sleep aid taken by patient for the sleep study: Moville of sleep aid: Not Applicable Procedure was explained to the patient and all questions were answered. PAP treatment discussed and shown to patient: Yes If PAP used enter mask info: n/a Chin Sharp Used No Knowledge Program (KP): KP was not completed in [employer] by patient and accepted Study type: Polysomnogram Adverse Event: No (If yes create a new abstract) SERS Event: No Comments: Patient was advised to follow up with their ordering provider regarding test results Jenny Borden [facility] 01-02-2022 History of Present illness Narrative Formatting of this note might be differe nt from the original. Sleep Study Check-In Documentation Date: January 02, 2022 Name: Leana Tran Patient was accompanied by Self. Location: [place] Latex allergy: Yes Tape allergy: No Current medications were reviewed with the patient:Yes Sleep aid taken by patient for the sleep study: Moville of sleep aid: Not Applicable Procedure was explained to the patient and all questions were answered. PAP treatment discussed and shown to patient: Yes If PAP used enter mask info: n/a Chin Sharp Used No --- ------- Knowledge Program (KP): KP was not completed in [employer] by patient and accepted Study type: Polysomnogram Adverse Event: No (If yes create a new abstract) SERS Event: No Comments: Patient was advised to follow up with their ordering provider regarding test results Jenny Borden documented in this encounter [facility] 2021 Evaluation + Plan note Diagnostic Tests PendingUrine Cytology ([facility]) 12/21/21 [facility] [place] Work Phone: [phone] 2021 Hospital Discharge instruction s Patient Education 2021 10:13:39 Hematuria, Adult Hematuria, Adult Hematuria is blood in the urine. Blood may be visible in the urine, or it may be identified with a test. This condition can be caused by infections of the bladder, urethra, kidney, or prostate. Other possible causes include: Kidney stones. Cancer of the urinary tract. Too much calcium in the urine. Conditions that are passed from parent to child (inherited conditions). Exercise that requires a lot of energy. Infections can usually be treated with medicine, and a kidney stone usually will pass through your urine. If neither of these is the cause of your hematuria, more tests may be needed to identify the cause of your symptoms. It is very important to tell your health care provider about any blood in your urine, even if it is painless or the blood stops without treatment. Blood in the urine, when it happens and then stops and then happens again, can be a symptom of a very serious condition, including cancer. There is no pain in the initial stages of many urinary cancers. Follow these instructions at home: Medicines Take udrq-yfq-kvrkbme and prescription medicines only as told by your health care provider. If you were prescribed an antibiotic medicine, take it as told by your health care provider. Do not stop taking the antibiotic even if you start to feel better. Eating and drinking Drink enough fluid to keep your urine clear or pale yellow. It is recommended that you drink 3 4 quarts (2.8 3.8 L) a day. If you have been diagnosed with an infection, it is recommended that you drink cranberry juice in addition to large amounts of water. Avoid caffeine, tea, and carbonated beverages. These tend to irritate the bladder. Avoid alcohol because it may irritate the prostate (men). General instructions If you have been diagnosed with a kidney stone, follow your health care provider's instructions about straining your urine to catch the stone. Empty your bladder often. Avoid holding urine for long periods of time. If you are female: ?After a bowel movement, wipe from front to back and use each piece of toilet paper only once. ?Empty your bladder before and after sex. Pay attention to any changes in your symptoms. Tell your health care provider about any changes or any new symptoms. It is your responsibility to get your test results. Ask your health care provider, or the department performing the test, when your results will be ready. Keep all follow-up visits as told by your health care provider. This is important. Contact a health care provider if: You develop back pain. You have a fever. You have nausea or vomiting. Your symptoms do not improve after 3 days. Your symptoms get worse. Get help right away if: You develop severe vomiting and are unable take medicine without vomiting. You develop severe pain in your back or abdomen even though you are taking medicine. You pass a large amount of blood in your urine. You pass blood clots in your urine. You feel very weak or like you might faint. You faint. Summary Hematuria is blood in the urine. It has many possible causes. It is very important that you tell your health care provider about any blood in your urine, even if it is painless or the blood stops without treatment. Take wbyz-igx-eyhztor and prescription medicines only as told by your health care provider. Drink enough fluid to keep your urine clear or pale yellow. This information is not intended to replace advice given to you by your health care provider. Make sure you discuss any questions you have with your health care provider. Document Released: 01/22/2006 Document Revised: 06/18/2019 Document Reviewed: 02/24/2017 [employer] Patient Education 2019 [employer]. Follow Up Care 11/28/2021 10:05:42 With:[facility] Address: [address] 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 Results left on patient voicemail. Leana Tran's bleeding disorders panel through [facility] was non-diagnostic or negative for a pathogenic variant. 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 This is a common polymorphism in the general population present in ~10% of individuals of white ancestry and ~1/3 of those of [place] ancestry. This polymorphism is not expected to contribute to disease risk for the patient. Please see [employer] message for further discussion. CARINE Carrillo Licensed, Certified Genetic Counselor Epic CC: Dr. Fuentes Craig documented in this encounter [facility] 12-15-2021 Note HNO ID: [id number] Author: Keira Harper Service: ? Author Type: ? Type: Progress Notes Filed: 01/03/2022 2:00 PM Note Text: ACTIGRAPHY DEVICE # [id number] Date shipped out 12/15/2021 [employer] MAIL OUT TRACKING NUMBER [id number] [employer] RETURN TRACKING NUMBER [id number], Amber [facility] 12-15-2021 History of Present illness Narrative Formatting of this note might be differe nt from the original. ACTIGRAPHY DEVICE # [id number] Date shipped out 12/15/2021 [employer] MAIL OUT TRACKING NUMBER [id number] [employer] RETURN TRACKING NUMBER [id number], Amber documented in this encounter [facility] 12-02-2021 Note HNO ID: [id number] Author: Ofelia Nelson Service: ? Author Type: ? Type: Progress Notes Filed: 12/02/2021 9:32 AM Note Text: UNIVERSAL PROTOCOL / SAFETY CHECKLIST Procedure to be performed: [facility]: TILT Sign in Communication: Completed Time Out: Team Confirms the Correct Patient, Correct Procedure, Correct Site and Site Marking, Correct Position (if applicable). Time: 0830 STAFF: Aby Affirmation of Time Out: YES Sign Out Discussion: Completed Ofelia Nelson Orders placed 10/20/[address]M Perez Allergies: Cefaclor, Iodinated Contrast Media, Fish Containing Products, Shellfish Derived, Aleve [Naproxen], Aspirin, Ceftin [Cefuroxime Axetil], Clindamycin, Erythromycin, Eucalyptus, Gatifloxacin, Lavender (Lavandula Angustifolia), Penicillin G Benzathine, Penicillins, Sulfa (Sulfonamide Antibiotics), Vioxx [Rofecoxib], Froylan 28 [Drospirenone-Ethinyl Estradiol], Latex, and Levofloxacin Test done in consult with Dr. Ian Oliver. Procedure Start Time: 829 Height 162.6 cm Weight 101.2 kg Patient fasting for 4 hours: Yes Support stockings taken off for procedure: Not applicable Pain Assessment: Patient states none Comfort Measures: Added pillow for head/shoulders Pacemaker: No IV Placement: 22 gauge angiocath in right median antecubital by Baseline: BP 120/76 HR 63 Pre-Max Tilt : 70 degrees 15 min BP 148/100 HR 72 Max Tilt: 70 degrees 16 min BP 147/100 HR 79 Note: Test was stopped early at the 15 min into 70 degree HUT due to patient symptoms, and patient request to stop test and resume supine positioning. See Final Report for Diagnosis. IV discontinued at 09 by . Staff involved in procedure: Heavenly Thomas RN; Ofelia Allen RN Procedure Finish Time: 933 [facility] 12-02-2021 History of Present illness Narrative Formatting of this note might be differe nt from the original. UNIVERSAL PROTOCOL / SAFETY CHECKLIST Procedure to be performed: [facility]: TILT Sign in Communication: Completed Time Out: Team Confirms the Correct Patient, Correct Procedure, Correct Site and Site Marking, Correct Position (if applicable). Time: 829 STAFF: Aby Affirmation of Time Out: YES Sign Out Discussion: Completed Ofelia Nelson Orders placed 10/20/[address]M Perez Allergies: Cefaclor, Iodinated Contrast Media, Fish Containing Products, Shellfish Derived, Aleve [Naproxen], Aspirin, Ceftin [Cefuroxime Axetil], Clindamycin, Erythromycin, Eucalyptus, Gatifloxacin, Lavender (Lavandula Angustifolia), Penicillin G Benzathine, Penicillins, Sulfa (Sulfonamide Antibiotics), Vioxx [Rofecoxib], Froylan 28 [Drospirenone-Ethinyl Estradiol], Latex, and Levofloxacin Test done in consult with Dr. Ian Oliver. Procedure Start Time: 829 Height 162.6 cm Weight 101.2 kg Patient fasting for 4 hours: Yes Support stockings taken off for procedure: Not applicable Pain Assessment: Patient states none Comfort Measures: Added pillow for head/shoulders Pacemaker: No IV Placement: 22 gauge angiocath in right median antecubital by Baseline: BP 120/76 HR 63 Pre-Max Tilt : 70 degrees 15 min BP 148/100 HR 72 Max Tilt: 70 degrees 16 min BP 147/100 HR 79 Note: Test was stopped early at the 15 min into 70 degree HUT due to patient symptoms, and patient request to stop test and resume supine positioning. See Final Report for Diagnosis. IV discontinued at 0928 by . Staff involved in procedure: Heavenly Thomas RN; Ofelia Allen RN Procedure Finish Time: 933 documented in this encounter [facility] Formatting of this note might be differe nt from the original. Attempted to contact the patient. Left voice message. Filomena MARIE ----- Message from Micheal Perez MD sent at 11/30/2021 8:33 PM EDT ----- Regarding: Event monitor results. Please call with results. Micheal Perez MD November 30, 2021 8:33 PM documented in this encounter [facility] 11-18-2021 Note HNO ID: [id number] Author: Fuentes Amaral MD Service: ? Author Type: Physician Type: Progress Notes Filed: 11/19/2021 8:33 AM Note Text: HEMATOLOGY FOLLOW UP November 18, 2021 ([place]) Some elements in this clinic note that are critical to medical decision making have been carefully reviewed and included from a prior clinic note dated: November 10, 2021 (Munir) AND November 03, 2021 (Munir) PCP and other physicians involved in patient's care: Cas Dowell (PCP), Rajinder Collins (surgery), Rubens Tim (ObGyn), DIAGNOSIS: Undiagnosed bleeding disorder, work-up pending - transition of care. ASSESSMENT: 35 year old with an unclear bleeding disorder and abnormal platelet aggregometry Patient's clinical history suggestive of an underlying bleeding disorder. She has had multiple surgical, obstetric, gynecologic, and dental procedures in the past. Some of these procedures have been associated with postoperative bleeding complications. Patient also has multiple bleeding issues such as easy gum bleeding on a regular basis. Her family history is unclear given that she was adopted but one of her sons has symptoms similar to her's (recurrent epistaxis and easy gum bleeding). Work-up for bleeding disorder in May 2021 showed an abnormal platelet aggregometry. There was mildly decreased aggregation to low dose ADP, collagen, and arachidonic acid but normal aggregation to high dose ADP and epinephrine (low and high dose). These findings were considered to be nonspecific. Patient does not take any aspirin or NSAIDs. 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 She has seen medical genetics and work-up is ongoing pending insurance authorization. Based on her previous surgical experiences, any surgical bleeding may be minimized by using FFP and platelet transfusions prior to the procedure. Follow up after genetics work-up is complete which she was encouraged to pursue. Additional constitutional symptoms will need additional workup. Reviewed Mammography showing axillary tail lymph nodes. They appeared benign and today's exam was normal. If she remains concerned, we can re-examine her and set up a breast MRI. PLAN: RTC and Repeat exam in 3 months - no labs Review platelet genetics on return. HEMATOLOGICAL HISTORY: Patient has an extensive and longstanding history of bleeding issues. In 2008, she was seen by Dr. Shirley and was noted to have an elevated PTT of 36 seconds. This corrected by addition of FFP. 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 She reportedly tested negative for von Willebrand disease. Some of these labs have been scanned in our EMR (2011). Previous bleeding history includes menorrhagia (endometrial ablation in 2014 for which she needed FFP and hysterectomy in 2019 [unclear whether she got FFP]), epistaxis since childhood (resolved after sinus surgery in 2010), gum bleeding on a daily basis with minimal trauma, and a recent episode of bright red blood per rectum in March 2021 (no EGD or colonoscopy). Previous dental procedures include cavity fillings. It is unclear whether she had any bleeding issues after that procedure. She has had 2 normal vaginal deliveries with hemorrhage but patient does not remember if any medical or surgical intervention was done. She had a during her third and reports that the surgery took longer than anticipated. Referred to me in May 2021 for pre-operative clearance prior to elective inguinal hernia repair May 2021, PT 10 seconds, PTT 32.7 seconds, activity levels of factors II, V, IX, X, XI; activity levels of factor VIII elevated; no evidence of von Willebrand's disease; platelet function screen normal; platelet aggregometry notable showed mildly decreased aggregation to low dose ADP, collagen, and arachidonic acid but normal aggregation to high dose ADP and epinephrine (low and high dose). There was a normal stimulated dense granule release to all agonists. The ristocetin induced platelet aggregation showed a normal dose response. Overall, these findings were non-specific. July 2021, above labs repeated with the same result; TEG normal; fibrinogen antigen normal INTERVAL HISTORY: Updated Visit, November 18, 2021: Leana is 35 and comes in after we discussed her mammogram results showing what appears to be benign lymph nodes. Chaperoned breast exam noted below. Discussion on lack of findings - tender bilateral axillary exam but no palpable masses. Discussion and education on continued hormonal cycles continuing despite hysterectomy causing breast changes. Will consider MRI breast is future if needed. 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 Her step-father has also . Updated Visit, November 10, 2021: Leana is 35 yo and is having genetic testing done to ascertain a sera (more content not included)... [facility] 11-18-2021 Instruction s Fuentes Amaral MD - 11/18/2021 2:09 PM EDT 1. RTC and Repeat exam in 3 months - no labs 2. Review platelet genetics on return. documented in this encounter [facility] 11-18-2021 History of Present illness Narrative Formatting of this note might be differe nt from the original. Images from the original note were not included. HEMATOLOGY FOLLOW UP November 18, 2021 ([place]unir) Some elements in this clinic note that are critical to medical decision making have been carefully reviewed and included from a prior clinic note dated: November 10, 2021 (Munir) & November 03, 2021 (genesispat) PCP and other physicians involved in patient's care: Cas Dowell (PCP), Rajinder Collins (surgery), Rubens Tim (ObGyn), DIAGNOSIS: Undiagnosed bleeding disorder, work-up pending - transition of care. ASSESSMENT: 35 year old with an unclear bleeding disorder and abnormal platelet aggregometry Patient's clinical history suggestive of an underlying bleeding disorder. She has had multiple surgical, obstetric, gynecologic, and dental procedures in the past. Some of these procedures have been associated with postoperative bleeding complications. Patient also has multiple bleeding issues such as easy gum bleeding on a regular basis. Her family history is unclear given that she was adopted but one of her sons has symptoms similar to her's (recurrent epistaxis and easy gum bleeding). Work-up for bleeding disorder in May 2021 showed an abnormal platelet aggregometry. There was mildly decreased aggregation to low dose ADP, collagen, and arachidonic acid but normal aggregation to high dose ADP and epinephrine (low and high dose). These findings were considered to be nonspecific. Patient does not take any aspirin or NSAIDs. 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 She has seen medical genetics and work-up is ongoing pending insurance authorization. Based on her previous surgical experiences, any surgical bleeding may be minimized by using FFP and platelet transfusions prior to the procedure. Follow up after genetics work-up is complete which she was encouraged to pursue. Additional constitutional symptoms will need additional workup. Reviewed Mammography showing axillary tail lymph nodes. They appeared benign and today's exam was normal. If she remains concerned, we can re-examine her and set up a breast MRI. PLAN: RTC and Repeat exam in 3 months - no labs Review platelet genetics on return. HEMATOLOGICAL HISTORY: Patient has an extensive and longstanding history of bleeding issues. In 2008, she was seen by Dr. Shirley and was noted to have an elevated PTT of 36 seconds. This corrected by addition of FFP. 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 She reportedly tested negative for von Willebrand disease. Some of these labs have been scanned in our EMR (2011). Previous bleeding history includes menorrhagia (endometrial ablation in 2014 for which she needed FFP and hysterectomy in 2019 [unclear whether she got FFP]), epistaxis since childhood (resolved after sinus surgery in 2010), gum bleeding on a daily basis with minimal trauma, and a recent episode of bright red blood per rectum in March 2021 (no EGD or colonoscopy). Previous dental procedures include cavity fillings. It is unclear whether she had any bleeding issues after that procedure. She has had 2 normal vaginal deliveries with hemorrhage but patient does not remember if any medical or surgical intervention was done. She had a C- section during her third and reports that the surgery took longer than anticipated. Referred to me in May 2021 for pre-operative clearance prior to elective inguinal hernia repair May 2021, PT 10 seconds, PTT 32.7 seconds, activity levels of factors II, V, IX, X, XI; activity levels of factor VIII elevated; no evidence of von Willebrand's disease; platelet function screen normal; platelet aggregometry notable showed mildly decreased aggregation to low dose ADP, collagen, and arachidonic acid but normal aggregation to high dose ADP and epinephrine (low and high dose). There was a normal stimulated dense granule release to all agonists. The ristocetin induced platelet aggregation showed a normal dose response. Overall, these findings were non-specific. July 2021, above labs repeated with the same result; TEG normal; fibrinogen antigen normal INTERVAL HISTORY: Updated Visit, November 18, 2021: Leana is 35 and comes in after we discussed her mammogram results showing what appears to be benign lymph nodes. Chaperoned breast exam noted below. Discussion on lack of findings - tender bilateral axillary exam but no palpable masses. Discussion and education on continued hormonal cycles continuing despite hysterectomy causing breast changes. Will consider MRI breast is future if needed. 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 Her step-father has also . Updated Visit, November 10, 2021: Leana is 35 yo and is having genetic testing done to ascertain a genetic platelet disorder. However, she had a Mammogram recently that was concerning for lymphadenopathy. I was unable to get the report myself and so she gave me some of the information over the telephone. She has some benign Lymph nodes noted on mammogram. She would like to have a breast exam to allay anxiety. Updated Visit, November 03, 2021: Transition of care Drenching night sweats - had COVID 10/2020 - sweats started in August, developed T2DM after COVID. Random rashes - red and blotchy circles. Swollen lymph node - not palpable On frequent prednisone tapers every month Mammograms last week 10/19/2021 - LN's noted on them. Will evaluate this further. 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 Patient is adopted and does not know her family history well. She has 3 boys who are relatively healthy. Her oldest son (age 16 years) has similar bleeding symptoms including easy gum bleeding and epistaxis as the patient. No substance abuse. MEDICATIONS AND ALLERGIES: Reviewed PHYSICAL EXAM BP 121/73 Pulse 66 Temp 36.6 C (97.8 F) (Temporal) Resp 16 Ht 162.6 cm (5' 4.02 ) Wt 101.2 kg (223 lb 3.2 oz) LMP 2015 SpO2 100% BMI 38.29 kg/m General:This is an age-appropriate patient in no acute distress. Head: Atraumatic, symmetric with no lesions visible. Eyes: Pupils equally round and reactive to light, extraocular muscles intact. Neck: Supple Mouth: Mucous membranes are moist, no thrush is noted. Lungs: Clear to auscultation bilaterally with no wheezes crackles or rales. Cardiovascular: Regular rate and rhythm with no murmurs or gallops. Peripheral pulses: Normal. Gastrointestinal: Soft, nontender, normoactive bowel sounds, with no appreciable hepatosplenomegaly. Musculoskeletal: No appreciable bony abnormalities or tenderness. Extremities: Lower extremities without edema. Neurologic: Nonfocal to gross visualization. Alert and oriented 3. Psychiatric: No evidence of inappropriate anxiety or depression. Skin: No overt rashes wounds or petechiae. Lymph node exam: No appreciable lymphadenopathy in cervical supraclavicular or axillary lymph node chains. Chaperoned breast exam: normal female breasts bilaterally, symmetric, no nipple changes and no palpable lymph nodes or masses bilaterally. She was tender to deep palpation of both axilla and the axillary tail of her left breast. LABORATORY, IMAGING AND PATHOLOGY May 2021 PT 10 seconds, PTT 32.7 seconds, activity levels of factors II, V, IX, X, XI; activity levels of factor VIII elevated; no evidence of von Willebrand's disease Platelet function screen normal Platelet aggregometry notable showed mildly decreased aggregation to low dose ADP, collagen, and arachidonic acid but normal aggregation to high dose ADP and epinephrine (low and high dose). There was a normal stimulated dense granule release to all agonists. The ristocetin induced platelet aggregation showed a normal dose response. Overall, these findings were non-specific July 2021 Fibrinogen antigen 380 Fibrinogen activity 390 TEG normal Platelet aggregometry abnormal with a nonspecific pattern I spent a total of 30 minutes on the date of the service which included preparing to see the patient, [id number] patient care, completing clinical documentation, obtaining and/or reviewing separately obtained history, performing a medically appropriate examination, counseling and educating the patient/family/caregiver, ordering medications, tests, or procedures, independently interpreting results (not separately reported) and communicating results to the patient/family/caregiver. Fuentes Amaral MD, CPE Hematology and Oncology Services Provided at: [place], [place] CC: Cas Dowell documented in this encounter [facility] 11-16-2021 Instruction s Meena Grissom MD - 11/16/2021 1:41 PM EDT - Sleep apnea is a serious sleep disorder that occurs when a person's breathing is interrupted during sleep. People with untreated sleep apnea stop breathing repeatedly during their sleep, sometimes hundreds of times during the night. Untreated sleep apnea is associated with a variety of consequences, including, but not limited to hypertension, heart disease, stroke, obesity, and daytime sleepiness that can affect normal daytime functioning. Because of these consequences, treatment of sleep apnea is recommended. Continue PAP Therapy - Continue CPAP 10 cmH2O. - Remember to clean your mask and equipment regularly, as directed. - You should be eligible for new supplies approximately every 3-6 months, depending on your insurance coverage. Contact your Durable Medical Equipment (DME) company for new supplies as needed. Encouraged increased CPAP compliance -PAP titration polysomnogram requested to assess optimum PAP therapy for KATELIN -PAP nap procedure requested to help address mask interface issues To schedule your sleep study please call the [facility] at [phone]. The [phone] phone number will be answered by the Lab [facility] M-F, 8am-5pm and after 5pm this line will roll to the call center. - Avoid driving if drowsy. We recommend that if you are dozing off while driving, that you do not drive until your sleepiness is appropriately treated. - We encourage a healthy lifestyle with adequate sleep (7-9 hours per night), diet and exercise. Check iron studies today (ferritin, total iron, TIBC). Low iron stores (indicated by a ferritin level below 75 mcg/L may be making your RLS symptoms worse. It may help to take iron supplements. Nonmedical therapy for restless legs syndrome includes : cold/warm compresses, warm/hot baths or showers, gentle massage, mild leg stretching at nighttime, or magnesium supplements ( 250- 1000 mg at nighttime daily). Mentally alerting activities help too. Note the caffeine, alcohol, nicotine, antidepressants, anti-nausea meds and antihistamines can cause or worsen symptoms. Devote at least 7 hours to sleep per day. Try to keep the same sleep schedule on work days and days off. Keeping a routine helps your body know whento be alert and when to sleep. If you work rotating shifts, ask your sports team manager to schedule a natural, clockwise rotation. This means that your new shift will have a start time that is later than your last shift. Plan ahead for a major change in a shift work schedule.Begin to alter your sleep time a few days in advance. This will make it easier for your body to adjust. If possible, plan to take a 20-30 minute nap during a break in your shift to improve alertness without grogginess. Caffeine in moderation may also be helpful to improve alertness. A longer nap before reporting for a retail shift manager is also beneficial. Exposure to bright light on the job can improve alertness during retail shift manager work. Arrange for someone to pick you up after a retail shift manager, or take a bus or cab home. Drowsy driving can put your life and the lives of other drivers at risk. If you need to sleep during the day, avoid exposure to sunlight. If you must go outside, wear sunglasses. The bedroom should be cool, quiet, and dark. Make sure others in your home are aware of your work schedule and maintain a quiet environment Consider using melatonin (up to 10mg) when trying to sleep during the day or even to help sleep at night. Avoid caffeine, bright light, and vigorous exercise 4 hours before bedtime and minimize alcohol use. Discontinue the use of electronic devices (computers, cell phones, tablets) at least 30 minutes prior to bedtime. Start Go to Sleep! which is a 6 week online program for cognitive behavior therapy for insomnia. The cost is $40. Use www.[employer] which to access the [facility] website to purchase the program ( go to Shop, and then Wellness Programs, and the find the Go! To Sleep product). Consult to behavior sleep medicine specialist for individual or group cognitive behavioral therapy for insomnia ( CBTi ). What does the Actigraphy Monitor do? The Wrist Activity Monitor (Actigraph) looks and wears like a wrist watch.? The watch will let us know your rest and activity rhythm both day and night to let us know your estimated sleep and wake times. Actigraphy will be billed to your insurance, but there is a possibility it may not be covered. If it is not covered, you will be billed $125.00. If you want to contact your insurance company to check coverage before scheduling, please contact your insurance provider and give them the CPT code: 43881 You will be asked to wear the device on the hand that you do not write with (the non-dominant hand) all the time (24 hours per day) except for when you shower, bathe, swim, dive, or participate in contact sports that could potentially damage the device. Make sure the device is not tight or uncomfortable but it should not move around on your wrist. Please wear it the same way every time you put it on. Do not drop the device, submerge it in water, or expose it to liquid for long periods of time. When not wearing the watch please keep it in a safe place. Do NOT leave it unattended as you will be responsible for its replacement should it be lost or damaged. A sleep journal will be sent with the actigraphy. It is important to fill out the sleep journal for each day you wear the monitor including the times that you are not wearing the monitor. You will wear the device or for 7-30 days/nights depending on your provider's request.? With the monitor you will be receive an envelope that is pre-addressed to return the device along with the sleep journal.? On your return date, If you plan to return the device on the day of your upcoming sleep study appointment and do not show or cancel your sleep study appointment, you must return the device back in the pre-addressed envelope as soon as possible. If you reschedule your sleep study appointment to a later date you must return the device back to your next appointment. You will mail the actigraphy device back in the pre-addressed envelope.? You must return the device, sleep journal sheets, and any other supplies/materials that you were given, as the device needs to be used for other studies. You will be charged $500 for loss of the device if not received within 7 days from your return date. ? If you have any questions about your actigraphy device, please call the product safety technician at: [phone] ( During Hours: 8am-4:30pm) ? -Discussed pathophysiology of Sleep paralysis, and possible triggering factors which include sleep deprivation, untreated obstructive sleep apnea. Other possible etiologies include circadian shift work,anxiety disorders and medications. - Follow up in 2 months documented in this encounter [facility] 11-16-2021 [facility] Notes Formatting of this note might be differe nt from the original. Images from the original note were not included. Images from the original note were not included. documented in this encounter [facility] 11-16-2021 Note HNO ID: [id number] Author: Meena Grissom MD Service: ? Author Type: Physician Type: Progress Notes Filed: 11/16/2021 2:37 PM Note Text: [facility] New Patient Evaluation This is a virtual visit PATIENT NAME: Leana Tran DATE OF SERVICE: November 16, 2021 CONSULTING PROVIDER: SELF REASON FOR CONSULT: Self sends the patient for an opinion about sleep apnea. My findings and recommendations will be transmitted electronically via shared medical record to the consulting provider. Individuals who were included in, or assisted with the encounter were: Meena Grissom MD Leana Tran HPI: Leana Tran is a 35 year old female. Sleep-related history: 35 year old has been reporting with sleep difficulties since past 5 years, has sleep onset and maintenance issues; quality is poor. 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 She was diagnosed with KATELIN a year ago, on CPAP , her physician is at [facility]. Has a Resmed device, uses it on most days but cannot tolerate on the days she suffers from migraines. At times uses CPAP when awake.Has a full face and nasal mask. Her reported snoring, her sleep was unrestful and fragmented, on CPAP snoring has been abolished however sleep quality is still poor. Had Covid Oct 26, feels lack of energy, fatigue and sleepiness has worsened. 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 Works 7pm - 1 am Bedtime: 2.30 AM. She has a hard time falling asleep. Time to fall asleep: 60-90min Wake time: 8-9 AM, without an alarm. After falling asleep: she wakes up 3 time(s) per night, because of physical discomfort and the need to urinate. On weekends, she tends to stay up until 10 PM and sleeps until 9 AM. Is awake from 2.30-5.30 am, lets her dogs out, eats food and watches television. Average total sleep time (in a 24 hour period): 6-10 hours. She does take naps. Frequency: 11am-3pm, daily Naps are refreshing. SLEEP-RELATED DETAILS Preferred sleep position: side Breathing disturbances and other behaviors during sleep: snoring, moving around a lot, frequent leg movements, and acting out dreams. Bruxism: Yes, possibly GERD or aspiration: Yes Waking up with heart pounding or racing: No Anxiety or rumination: Yes She reports having an urge to move the legs. The urge to move the legs is worse in the evening or nighttime than during the daytime. The urge to move the legs begins or worsens during periods of rest or inactivity (e.g. lying or sitting). The urge to move the legs is partially or totally relieved by movements such as walking or stretching, at least as long as the activity continues. The urge to move the legs occurs 7 nights per week and began 1 year ago. There is history of iron deficiency or anemia post . She has been told that she has leg kicking during sleep. Advised to take requip but did not initiate because at the time had an allergic reaction to another medicine. The patient reports having had the following: Acting out dreams. Frequency: most nights, Time of night:varies, Dream content:violent, running Nightmares. Frequency: 3/week, Time of night: varies Excessive daytime sleepiness / fatigue is a problem. Excessive Daytime sleepiness/fatigue has been a problem for 5 years. There is a history of viral illness prior to the exacerbation of daytime sleepiness since Oct 26. Had a concussion at age 11. She does report sleep paralysis - feels body is vibrating and she is unable to move or speak for a few minutes No h/o sleep-related hallucinations or cataplexy. 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 She does have difficulty with memory or concentration 'brain fog' after Covid, both are imporving She denies falling asleep or dozing off when driving. She does drink 4 caffeinated beverages per day. She has lost 6 pounds since 6 months. Patient Questionnaires Sleep Scores Sleep Questions 11/13/2021 Reason for visit: Sleep apnea, Difficulty falling or staying asleep or poor sleep quality Average hours slept in 24 hours: 6 Average hours of CPAP per night: 6 Accidents or near accidents due to drowsy drivin [place] Sleepiness Scale 11/13/2021 Score 7 (No daytime sleepiness) PROMIS CAT Sleep Disturbance 09/04/2020 11/13/2021 PROMIS Sleep Disturbance T-Score 51 (within normal limits) 56 (mild) Insomnia Severity Index 06/20/2021 08/22/2021 11/13/2021 Score 8 8 10 Restless Leg Syndrome 11/13/2021 Score 12 PHQ-9 10/06/2021 10/08/2021 10/17/2021 Score 14 14 14 PROMIS Global Health - (T-Scores - the mean of general population = 50. Five p (more content not included)... [facility] 11-16-2021 History of Present illness Narrative Formatting of this note is different fro m the original. Images from the original note were not included. [facility] New Patient Evaluation This is a virtual visit PATIENT NAME: Leana Tran DATE OF SERVICE: November 16, 2021 CONSULTING PROVIDER: DARIO REASON FOR CONSULT: Self sends the patient for an opinion about sleep apnea. My findings and recommendations will be transmitted electronically via shared medical record to the consulting provider. Individuals who were included in, or assisted with the encounter were: Meena Grissom MD Leana Tran HPI: Leana Tran is a 35 year old female. Sleep-related history: 35 year old has been reporting with sleep difficulties since past 5 years, has sleep onset and maintenance issues; quality is poor. 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 She was diagnosed with KATELIN a year ago, on CPAP , her physician is at [facility]. Has a Resmed device, uses it on most days but cannot tolerate on the days she suffers from migraines. At times uses CPAP when awake.Has a full face and nasal mask. Her reported snoring, her sleep was unrestful and fragmented, on CPAP snoring has been abolished however sleep quality is still poor. Had Covid Oct 26, feels lack of energy, fatigue and sleepiness has worsened. 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 Works 7pm - 1 am Bedtime: 2.30 AM. She has a hard time falling asleep. Time to fall asleep: 60- 90min Wake time: 8-9 AM, without an alarm. After falling asleep: she wakes up 3 time(s) per night, because of physical discomfort and the need to urinate. On weekends, she tends to stay up until 10 PM and sleeps until 9 AM. Is awake from 2.30-5.30 am, lets her dogs out, eats food and watches television. Average total sleep time (in a 24 hour period): 6-10 hours. She does take naps. Frequency: 11am-3pm, daily Naps are refreshing. SLEEP-RELATED DETAILS Preferred sleep position: side Breathing disturbances and other behaviors during sleep: snoring, moving around a lot, frequent leg movements, and acting out dreams. Bruxism: Yes, possibly GERD or aspiration: Yes Waking up with heart pounding or racing: No Anxiety or rumination: Yes She reports having an urge to move the legs. The urge to move the legs is worse in the evening or nighttime than during the daytime. The urge to move the legs begins or worsens during periods of rest or inactivity (e.g. lying or sitting). The urge to move the legs is partially or totally relieved by movements such as walking or stretching, at least as long as the activity continues. The urge to move the legs occurs 7 nights per week and began 1 year ago. There is history of iron deficiency or anemia post . She has been told that she has leg kicking during sleep. Advised to take requip but did not initiate because at the time had an allergic reaction to another medicine. The patient reports having had the following: Acting out dreams. Frequency: most nights, Time of night:varies, Dream content:violent, running Nightmares. Frequency: 3/week, Time of night: varies Excessive daytime sleepiness / fatigue is a problem. Excessive Daytime sleepiness/fatigue has been a problem for 5 years. There is a history of viral illness prior to the exacerbation of daytime sleepiness since Oct 26. Had a concussion at age 11. She does report sleep paralysis - feels body is vibrating and she is unable to move or speak for a few minutes No h/o sleep-related hallucinations or cataplexy. 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 She does have difficulty with memory or concentration 'brain fog' after Covid, both are imporving She denies falling asleep or dozing off when driving. She does drink 4 caffeinated beverages per day. She has lost 6 pounds since 6 months. Patient Questionnaires Sleep Scores Sleep Questions 11/13/2021 Reason for visit: Sleep apnea, Difficulty falling or staying asleep or poor sleep quality Average hours slept in 24 hours: 6 Average hours of CPAP per night: 6 Accidents or near accidents due to drowsy drivin [place] Sleepiness Scale 11/13/2021 Score 7 (No daytime sleepiness) PROMIS CAT Sleep Disturbance 09/04/2020 11/13/2021 PROMIS Sleep Disturbance T-Score 51 (within normal limits) 56 (mild) Insomnia Severity Index 06/20/2021 08/22/2021 11/13/2021 Score 8 8 10 Restless Leg Syndrome 11/13/2021 Score 12 PHQ-9 10/06/2021 10/08/2021 10/17/2021 Score 14 14 14 PROMIS Global Health - (T-Scores - the mean of general population = 50. Five points is a clinically meaningful difference.) 05/19/2021 08/11/2021 11/08/2021 Physical T-Score 32.4 34.9 39.8 Mental T-Score 33.8 33.8 31.3 PAST TREATMENTS: CPAP Prior RLS Medications (last 20 years) Some values may be hidden. Unless noted otherwise, only the newest values recorded on each date are displayed. RLS Medications rOPINIRole (REQUIP) 0.25 mg tablet Dose: Take 0.25 mg by mouth. (Patient taking differently:, Patient not taking as of 09/21/2021 3:37 PM) Starting date: 08/24/2021 Ending date: 10/19/2021 (Discontinued) Prior Insomnia Medications (last 20 years) Some values may be hidden. Unless noted otherwise, only the newest values recorded on each date are displayed. Insomnia Medications FLUoxetine (PROZAC) 20 mg capsule Dose: 40 mg DAILY Starting date: 01/30/2014 Ending date: 06/08/2016 (Discontinued) LORazepam (ATIVAN) 0.5 mg Dose: 0.5 mg 2 TIMES DAILY NEEDED Starting date: (active) sertraline (ZOLOFT) 100 mg tablet Dose: 200 mg AT BEDTIME Starting date: 06/11/2019 (active) sertraline (ZOLOFT) 25 mg tablet Dose: 25 mg DAILY Starting date: Ending date: 09/06/2020 (Discontinued) traZODone (DESYREL) 100 mg tablet Dose: 100 mg NEEDED Starting date: Ending date: 06/10/2021 (Discontinued) zolpidem (AMBIEN) 5 mg tablet Dose: 5 mg NEEDED Starting date: 05/19/2021 Ending date: 07/21/2021 (Discontinued) PRIOR SLEEP STUDIES: [facility] at [place] (report not available at time of consultation) OTHER RELEVANT LABS AND STUDIES: Ferritin Date Value Ref Range Status 07/01/2021 98.2 14.7 - 205.1 ng/mL Final PAST MEDICAL HISTORY Diagnosis Date Arachnoid cyst of pituitary gland Asthma Bulging of cervical intervertebral disc C4-C7 Cholelithiases COVID-19 10/2020 Depression GERD (gastroesophageal reflux disease) Hypercoagulable state (HCC) Hypothyroid IBS (irritable bowel syndrome) KATELIN on CPAP Palpitations 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 Pseudotumor cerebri PTSD (post-traumatic stress disorder) PAST SURGICAL HISTORY Procedure Laterality Date ABDOMINAL SURGERY HX 2010 exploration APPENDECTOMY 2008 DELIVERY ONLY HYSTERECTOMY NOSE SURGERY HX 2011 REMOVAL GALLBLADDER TUBAL LIGATION HX ACTIVE PROBLEM LIST Coagulopathy (Hcc) Arachnoid Cyst of Pituitary Gland Symptomatic Bradycardia Blood Pressure Instability Subjective Muscle Weakness Physical Deconditioning Transient Diplopia Orthostatic Lightheadedness Screening for Endocrine Disorder Primary Hypothyroidism Moderate Persistent Asthma Without Complication Gastroesophageal Reflux Disease Allergic Rhinitis Allergic Reaction to Contrast Dye Drug Reaction Adverse Food Reaction Diffuse Pain Decreased Activity Tolerance Orthostatic Intolerance Palpitations Allergies As of Date: 11/16/2021 Allergen Noted Reaction CEFACLOR 09/04/2011 Shortness of Breath, Anaphylaxis, and Swelling IODINATED CONTRAST MEDIA 02/23/2014 Anaphylaxis FISH CONTAINING PRODUCTS 07/25/2021 Hives SHELLFISH DERIVED 07/25/2021 Hives ALEVE [NAPROXEN] 09/06/2020 Angioedema ASPIRIN 02/23/2014 Angioedema CEFTIN [CEFUROXIME AXETIL] 02/23/2014 Shortness of Breath CLINDAMYCIN 02/23/2014 Rash and Shortness of Breath ERYTHROMYCIN 02/23/2014 Swelling, Shortness of Breath, and Unknown EUCALYPTUS 10/23/2020 Anaphylaxis GATIFLOXACIN 2014 Diarrhea LAVENDER (LAVANDULA ANGUSTIFOLIA) 09/06/2020 Anaphylaxis PENICILLIN G BENZATHINE 08/18/2021 Unknown PENICILLINS 02/23/2014 Rash and Itching SULFA (SULFONAMIDE ANTIBIOTICS) 05/18/2015 Swelling and Shortness of Breath VIOXX [ROFECOXIB] 06/08/2021 Unknown FROYLAN 28 [DROSPIRENONE-ETHINYL ESTR*06/08/2021 Other: See Comments LATEX 02/23/2014 Rash, Itching, and Unknown LEVOFLOXACIN 11/11/2020 Rash Fully Assessed 11/03/2021 CURRENT MEDICATIONS: arformoterol (BROVANA) 15 mcg/2 mL nebulizer solution^Inhale 2 mL as instructed every 12 hours.^Disp: 120 mL^Rfl: 5 predniSONE (DELTASONE) 50 mg^Take 50 mg by mouth once daily.^Disp: ^Rfl: levalbuterol tartrate HFA 45 mcg/actuation inhaler^Inhale 1-2 Puffs as instructed every 4 hours as needed for wheezing/shortness of breath.^Disp: 1 Each^Rfl: 3 budesonide (PULMICORT) 0.5 mg/2 mL nebulizer solution^Use 2 mL via nebulizer every 12 hours. Inhale over 5-15 minutes^Disp: 120 mL^Rfl: 5 SITagliptin (JANUVIA) 100 mg tablet^Take 1 tablet by mouth once daily.^Disp: ^Rfl: Magnesium 250 mg tab^Take 250 mg by mouth.^Disp: ^Rfl: Flaxseed Oil oil^Take 1,000 mg by mouth once daily.^Disp: ^Rfl: Ascorbic Acid 100 mg tablet^Take 100 mg by mouth once daily.^Disp: ^Rfl: Zinc 50 mg tab^Take by mouth.^Disp: ^Rfl: fremanezumab-vfrm subcutaneus auto-injector 225 mg/1.5 mL (AJOVY)^Inject 1.5 mL subcutaneously once every month. Do not shake.^Disp: 1.5 mL^Rfl: 11 UBRELVY 100 mg tablet^TAKE 1 TABLET BY MOUTH AT ONSET OF MIGRAINE. MAY REPEAT IN 2 HOURS NEEDED. MAX 2 TABLET IN 24 HOURS^Disp: ^Rfl: baclofen (LIORESAL) 10 mg tablet^Take 10-20 mg by mouth at bedtime as needed.^Disp: ^Rfl: famotidine (PEPCID) 40 mg tablet^Take 40 mg by mouth as needed.^Disp: ^Rfl: cetirizine (ZYRTEC) 10 mg tablet^Take 10 mg by mouth as needed.^Disp: ^Rfl: diphenhydrAMINE (BENADRYL) 25 mg tablet^Take 50 mg by mouth every 6 hours as needed.^Disp: ^Rfl: LORazepam (ATIVAN) 0.5 mg^Take 0.5 mg by mouth twice daily as needed.^Disp: ^Rfl: zonisamide (ZONEGRAN) 100 mg capsule^Take 1 capsule by mouth once daily.^Disp: 90 capsule^Rfl: 3 rimegepant (NURTEC ODT) 75 mg disintegrating tablet^Take 1 tablet by mouth once daily as needed. No more than 1 dose in 24 hours.^Disp: 8 tablet^Rfl: 11 prazosin (MINIPRESS) 5 mg cap^Take 5 mg by mouth daily at bedtime. ^Disp: ^Rfl: mecobalamin, vitamin B12, 1,000 mcg ODT^once daily.^Disp: ^Rfl: VITAMIN D-3 125 mcg (5,000 unit) tab^Take 5,000 Units by mouth once daily.^Disp: ^Rfl: EPINEPHrine 0.1 mg/0.1 mL AutoInjector^as needed. ^Disp: ^Rfl: lamoTRIgine (LAMICTAL) 150 mg tablet^Take 150 mg by mouth daily at bedtime. ^Disp: ^Rfl: sertraline (ZOLOFT) 100 mg tablet^Take 200 mg by mouth daily at bedtime. ^Disp: ^Rfl: levothyroxine (SYNTHROID) 112 mcg tablet^Take 112 mcg by mouth daily before breakfast. Takes 1.5 tablets on Wednesdays ^Disp: ^Rfl: montelukast (SINGULAIR) 10 mg tablet^Take 10 mg by mouth once daily. ^Disp: ^Rfl: Review of Systems No c/o recent fevers, malaise No c/o nausea, vomiting Has chest pain, night sweats, shortness of breath, fatigue SOCIAL HISTORY: Social History Tobacco Use Smoking status: Never Passive exposure: Past Smokeless tobacco: Never Vaping Use Vaping Use: Never used Substance Use Topics Alcohol use: Not Currently Drug use: Not Currently FAMILY HISTORY: FAMILY HISTORY Problem Relation Age of Onset Diabetes Mother uncontrolled Hypertension Mother Heart Attack Mother First MS at age 51 Cardiomyopathy Mother at age 52 Ischemic Heart Disease Mother Hypertension Father Diabetes Father Heart disease Father at age 57 Hypertension Sister Diabetes Sister Heart Son Being evaluated for HOCM (Dad has) Heart Son Being evaluated for HOCM (Dad has) other (Syncope) Son Neurocardiogenic Syncope Heart Son Being evaluated for HOCM (Dad has) Asthma Son No Ocular Disease Other There is a family history of: Mental illness and irregular sleep. Relative: mother PHYSICAL EXAMINATION: General appearance: well groomed, pleasant, cooperative Mental status: alert, awake, oriented Neck: no goiter visible Constitutional: NL Skin: NL Eyes: conjunctivae/corneas clear, anicteric sclera, EOMI ENT : External ears normal. Nasal congestion present, Nasal valve incompetence absent. Posterior airspace: Maldonado tongue position 4, retrognathia absent. Overbite absent. High arched palate absent. Tongue scalloping/ridging absent. 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 Because of these consequences, treatment of sleep apnea is recommended. Treatment options for sleep apnea discussed - Discussed with the patient the possible diagnosis, causes, and conditions associated with obstructive sleep apnea. - She will send over previous sleep test report. Will request PAP titration study to optimize PAP therapy, she has a fixed CPAP at 10cm H2O -Has mask interface issues, will benefit from PAP nap procedure - Avoid driving when drowsy. Recommend that if you are dozing off while driving, that you do not drive until your sleepiness is appropriately treated. -Encouraged healthy lifestyle with adequate sleep ( 7-9 hours per night), diet and exercise. - Results are usually available within 7-10 business days. If you do not hear from us within 1-2 weeks after testing, please contact us directly. -Discussed hyperarousal state and underlying causes of insomnia. Discussed treatment options including medications and CBT. -Advised to maintain sleep/wake diary -Actigraphy watch monitor requested Devote at least 7 hours to sleep per day. Try to keep the same sleep schedule on work days and days off. Keeping a routine helps your body know whento be alert and when to sleep. If you work rotating shifts, ask your sports team manager to schedule a natural, clockwise rotation. This means that your new shift will have a start time that is later than your last shift. Plan ahead for a major change in a shift work schedule.Begin to alter your sleep time a few days in advance. This will make it easier for your body to adjust. If possible, plan to take a 20-30 minute nap during a break in your shift to improve alertness without grogginess. Caffeine in moderation may also be helpful to improve alertness. A longer nap before reporting for a retail shift manager is also beneficial. Exposure to bright light on the job can improve alertness during retail shift manager work. Arrange for someone to pick you up after a retail shift manager, or take a bus or cab home. Drowsy driving can put your life and the lives of other drivers at risk. If you need to sleep during the day, avoid exposure to sunlight. If you must go outside, wear sunglasses. The bedroom should be cool, quiet, and dark. Make sure others in your home are aware of your work schedule and maintain a quiet environment Consider using melatonin (up to 10mg) when trying to sleep during the day or even to help sleep at night. Avoid caffeine, bright light, and vigorous exercise 4 hours before bedtime and minimize alcohol use. Discontinue the use of electronic devices (computers, cell phones, tablets) at least 30 minutes prior to bedtime. Start Go to Sleep! which is a 6 week online program for cognitive behavior therapy for insomnia. The cost is $40. Use www.[employer] which to access the [facility] website to purchase the program ( go to Shop, and then Wellness Programs, and the find the Go! To Sleep product). Consult to behavior sleep medicine specialist for individual or group cognitive behavioral therapy for insomnia ( CBTi ). -Discussed pathophysiology of Sleep paralysis, and possible triggering factors which include sleep deprivation, untreated obstructive sleep apnea. Other possible etiologies include circadian shift work,anxiety disorders and medications. - Check iron studies today (ferritin, total iron, TIBC). Low iron stores (indicated by a ferritin level below 75 mcg/L may be making your RLS symptoms worse. It may help to take iron supplements. Nonmedical therapy for restless legs syndrome includes : cold/warm compresses, warm/hot baths or showers, gentle massage, mild leg stretching at nighttime, or magnesium supplements ( 250- 1000 mg at nighttime daily). Mentally alerting activities help too. Note the caffeine, alcohol, nicotine, antidepressants, anti-nausea meds and antihistamines can cause or worsen symptoms. Is taking 10mg baclofen at bedtime for pain. BEFORE GETTING INTO BED: -Establish a regular routine for bedtime. -Create a positive sleep environment. -Relax before getting into bed. -Avoid alcohol, smoking, caffeine for at least a few hours before bedtime. -Do not go to bed unless you are sleepy. WHILE IN BED: -Turn your clock around (or cover it) and use your alarm if needed. - If you can't fall asleep in 20 minutes (based on your internal sense of time), get out of bed and do something relaxing or boring (reading, listening to music, etc). Return to bed only when sleepy. -Use your bed only for sleep. IN THE MORNING AND DURING THE DAYTIME: -Wake up at the same time every morning, even on weekends. -Avoid naps during the day. -Avoid caffeinated beverages and food in the evening. -Exercise regularly but not within 4 hours of bedtime. [facility] on 11/16/21 ACTIGRAPHY TESTING PAP NAP PSG (CPAP, BILEVEL, ASV) PAP TITRATION PSG (CPAP, BIPAP, ASV) FERRITIN BLD IRON + TIBC Meena Grissom MD I spent a total of 50 minutes on the date of the service which included preparing to see the patient, [id number] patient care, performing a medically appropriate examination, counseling and educating the patient/family/caregiver and ordering medications/devices. documented in this encounter [facility] 11-15-2021 Miscellaneo us Notes Formatting of this note might be differe nt from the original. Images from the original note were not included. documented in this encounter [facility] 11-12-2021 Note HNO ID: [id number] Author: Fuentes Amaral MD Service: ? Author Type: Physician Type: Progress Notes Filed: 11/12/2021 7:56 AM Note Text: AMBULATORY TELEPHONE VISIT Leana Tran has consented to this telephone encounter. Persons Present: patient Chief Complaint/Reason: platelet dysfunction HPI: Leana is 35 yo and is having genetic testing done to ascertain a genetic platelet disorder. However, she had a Mammogram recently that was concerning for lymphadenopathy. I was unable to get the report myself and so she gave me some of the information over the telephone. She has some benign Lymph nodes noted on mammogram. She would like to have a breast exam to allay anxiety. Data Reviewed: Most recent labs and imaging results. 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 AMBULATORY TELEPHONE VISIT Leana Tran has consented to this telephone encounter. Persons Present: patient Chief Complaint/Reason: platelet dysfunction HPI: Leana is 35 yo and is having genetic testing done to ascertain a genetic platelet disorder. However, she had a Mammogram recently that was concerning for lymphadenopathy. I was unable to get the report myself and so she gave me some of the information over the telephone. She has some benign Lymph nodes noted on mammogram. She would like to have a breast exam to allay anxiety. Data Reviewed: Most recent labs and imaging results. 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 Order for nebulizer supplies resent to [facility]. Call to them inquiring about any additional information they may need. Landen Clark APRN.[facility] documented in this encounter [facility] 11-07-2021 Miscellaneo Notes Formatting of this note might be differe nt from the original. Contacted [facility]. Order has not been received. Discussed with Javier from [facility]. Order is currently being processed. Filomena RN documented in this encounter [facility] 11-03-2021 Note HNO ID: [id number] Author: Fuentes Amaral MD Service: ? Author Type: Physician Type: Progress Notes Filed: 11/06/2021 5:22 PM Note Text: HEMATOLOGY FOLLOW UP November 03, 2021 ([place]) Some elements in this clinic note that are critical to medical decision making have been carefully reviewed and included from a prior clinic note dated: July 22, 2021 (Kali) AND July 01, 2021 (Kali) PCP and other physicians involved in patient's care: Cas Dowell (PCP), Rajinder Collins (surgery), Rubens Tim (ObGyn), DIAGNOSIS: Undiagnosed bleeding disorder, work-up pending - transition of care. ASSESSMENT: 35 female with an unclear bleeding disorder and abnormal platelet aggregometry Patient's clinical history suggestive of an underlying bleeding disorder. She has had multiple surgical, obstetric, gynecologic, and dental procedures in the past. Some of these procedures have been associated with postoperative bleeding complications. Patient also has multiple bleeding issues such as easy gum bleeding on a regular basis. Her family history is unclear given that she was adopted but one of her sons has symptoms similar to her's (recurrent epistaxis and easy gum bleeding). Work-up for bleeding disorder in May 2021 showed an abnormal platelet aggregometry. There was mildly decreased aggregation to low dose ADP, collagen, and arachidonic acid but normal aggregation to high dose ADP and epinephrine (low and high dose). These findings were considered to be nonspecific. Patient does not take any aspirin or NSAIDs. 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 She has seen medical genetics and work-up is ongoing pending insurance authorization. Based on her previous surgical experiences, any surgical bleeding may be minimized by using FFP and platelet transfusions prior to the procedure. Follow up after genetics work-up is complete which she was encouraged to pursue. Additional constitutional symptoms will need additional workup. Will need Mammography results to review and determine additional workup. PLAN: 1. Need Mammogram results from [place] 2. Proceed with genetic testing for platelet disorder 3. Call next week to review mammogram results HEMATOLOGICAL HISTORY: Patient has an extensive and longstanding history of bleeding issues. In 2008, she was seen by Dr. Shirley and was noted to have an elevated PTT of 36 seconds. This corrected by addition of FFP. 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 She reportedly tested negative for von Willebrand disease. Some of these labs have been scanned in our EMR (2011). Previous bleeding history includes menorrhagia (endometrial ablation in 2014 for which she needed FFP and hysterectomy in 2019 [unclear whether she got FFP]), epistaxis since childhood (resolved after sinus surgery in 2010), gum bleeding on a daily basis with minimal trauma, and a recent episode of bright red blood per rectum in March 2021 (no EGD or colonoscopy). Previous dental procedures include cavity fillings. It is unclear whether she had any bleeding issues after that procedure. She has had 2 normal vaginal deliveries with hemorrhage but patient does not remember if any medical or surgical intervention was done. She had a during her third and reports that the surgery took longer than anticipated. Referred to me in May 2021 for pre-operative clearance prior to elective inguinal hernia repair May 2021, PT 10 seconds, PTT 32.7 seconds, activity levels of factors II, V, IX, X, XI; activity levels of factor VIII elevated; no evidence of von Willebrand's disease; platelet function screen normal; platelet aggregometry notable showed mildly decreased aggregation to low dose ADP, collagen, and arachidonic acid but normal aggregation to high dose ADP and epinephrine (low and high dose). There was a normal stimulated dense granule release to all agonists. The ristocetin induced platelet aggregation showed a normal dose response. Overall, these findings were non-specific. July 2021, above labs repeated with the same result; TEG normal; fibrinogen antigen normal INTERVAL HISTORY: Updated Visit, November 03, 2021: Transition of care Drenching night sweats - had COVID 10/2020 - sweats started in August, developed T2DM after COVID. Random rashes - red and blotchy circles. Swollen lymph node - not palpable On frequent prednisone tapers every month Mammograms last week 10/19/2021 - LN's noted on them. Will evaluate this further. 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 [facility] 11-03-2021 Instruction s Fuentes Amaral MD - 11/03/2021 11:38 AM EDT 1. Need Mammogram results from [place] 2. Proceed with genetic testing for platelet disorder 3. Call next week to review mammogram results documented in this encounter [facility] 11-03-2021 History of Present illness Narrative Formatting of this note might be differe nt from the original. Images from the original note were not included. HEMATOLOGY FOLLOW UP November 03, 2021 ([place]) Some elements in this clinic note that are critical to medical decision making have been carefully reviewed and included from a prior clinic note dated: July 22, 2021 (Kali) & July 01, 2021 (Kali) PCP and other physicians involved in patient's care: Cas Dowell (PCP), Rajinder Collins (surgery), Rubens Tim (ObGyn), DIAGNOSIS: Undiagnosed bleeding disorder, work-up pending - transition of care. ASSESSMENT: 35 female with an unclear bleeding disorder and abnormal platelet aggregometry Patient's clinical history suggestive of an underlying bleeding disorder. She has had multiple surgical, obstetric, gynecologic, and dental procedures in the past. Some of these procedures have been associated with postoperative bleeding complications. Patient also has multiple bleeding issues such as easy gum bleeding on a regular basis. Her family history is unclear given that she was adopted but one of her sons has symptoms similar to her's (recurrent epistaxis and easy gum bleeding). Work-up for bleeding disorder in May 2021 showed an abnormal platelet aggregometry. There was mildly decreased aggregation to low dose ADP, collagen, and arachidonic acid but normal aggregation to high dose ADP and epinephrine (low and high dose). These findings were considered to be nonspecific. Patient does not take any aspirin or NSAIDs. 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 She has seen medical genetics and work-up is ongoing pending insurance authorization. Based on her previous surgical experiences, any surgical bleeding may be minimized by using FFP and platelet transfusions prior to the procedure. Follow up after genetics work-up is complete which she was encouraged to pursue. Additional constitutional symptoms will need additional workup. Will need Mammography results to review and determine additional workup. PLAN: 1. Need Mammogram results from [place] 2. Proceed with genetic testing for platelet disorder 3. Call next week to review mammogram results HEMATOLOGICAL HISTORY: Patient has an extensive and longstanding history of bleeding issues. In 2008, she was seen by Dr. Shirlye and was noted to have an elevated PTT of 36 seconds. This corrected by addition of FFP. 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 She reportedly tested negative for von Willebrand disease. Some of these labs have been scanned in our EMR (2011). Previous bleeding history includes menorrhagia (endometrial ablation in 2014 for which she needed FFP and hysterectomy in 2019 [unclear whether she got FFP]), epistaxis since childhood (resolved after sinus surgery in 2010), gum bleeding on a daily basis with minimal trauma, and a recent episode of bright red blood per rectum in March 2021 (no EGD or colonoscopy). Previous dental procedures include cavity fillings. It is unclear whether she had any bleeding issues after that procedure. She has had 2 normal vaginal deliveries with hemorrhage but patient does not remember if any medical or surgical intervention was done. She had a C- section during her third and reports that the surgery took longer than anticipated. Referred to me in May 2021 for pre-operative clearance prior to elective inguinal hernia repair May 2021, PT 10 seconds, PTT 32.7 seconds, activity levels of factors II, V, IX, X, XI; activity levels of factor VIII elevated; no evidence of von Willebrand's disease; platelet function screen normal; platelet aggregometry notable showed mildly decreased aggregation to low dose ADP, collagen, and arachidonic acid but normal aggregation to high dose ADP and epinephrine (low and high dose). There was a normal stimulated dense granule release to all agonists. The ristocetin induced platelet aggregation showed a normal dose response. Overall, these findings were non-specific. July 2021, above labs repeated with the same result; TEG normal; fibrinogen antigen normal INTERVAL HISTORY: Updated Visit, November 03, 2021: Transition of care Drenching night sweats - had COVID 10/2020 - sweats started in August, developed T2DM after COVID. Random rashes - red and blotchy circles. Swollen lymph node - not palpable On frequent prednisone tapers every month Mammograms last week 10/19/2021 - LN's noted on them. Will evaluate this further. 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 Patient is adopted and does not know her family history well. She has 3 boys who are relatively healthy. Her oldest son (age 16 years) has similar bleeding symptoms including easy gum bleeding and epistaxis as the patient. No substance abuse. MEDICATIONS AND ALLERGIES: Reviewed PHYSICAL EXAM BP 120/63 Pulse (!) 59 Temp 36.4 C (97.6 F) (Temporal) Resp 16 Ht 162.6 cm (5' 4.02 ) Wt 100 kg (220 lb 6.4 oz) LMP 2015 SpO2 99% BMI 37.81 kg/m Head atraumatic, no pallor or icterus, breathing comfortably, neuro grossly non-focal, skin without rash or bruises, extremities without swelling LABORATORY, IMAGING AND PATHOLOGY May 2021 PT 10 seconds, PTT 32.7 seconds, activity levels of factors II, V, IX, X, XI; activity levels of factor VIII elevated; no evidence of von Willebrand's disease Platelet function screen normal Platelet aggregometry notable showed mildly decreased aggregation to low dose ADP, collagen, and arachidonic acid but normal aggregation to high dose ADP and epinephrine (low and high dose). There was a normal stimulated dense granule release to all agonists. The ristocetin induced platelet aggregation showed a normal dose response. Overall, these findings were non-specific July 2021 Fibrinogen antigen 380 Fibrinogen activity 390 TEG normal Platelet aggregometry abnormal with a nonspecific pattern I spent a total of 30 minutes on the date of the service which included preparing to see the patient, [id number] patient care, completing clinical documentation, obtaining and/or reviewing separately obtained history, performing a medically appropriate examination, counseling and educating the patient/family/caregiver, ordering medications, tests, or procedures, independently interpreting results (not separately reported) and communicating results to the patient/family/caregiver. Fuentes Amaral MD, CPE Hematology and Oncology Services Provided at: [place], [place] CC: Cas Dowell documented in this encounter [facility] 10-31-2021 Note HNO ID: [id number] Author: Landen Clark APRN.MACY Service: ? Author Type: Nurse Practitioner Type: Progress Notes Filed: 10/31/2021 2:06 PM Note Text: Pt provided serial number for machine. I have connected ccf to the machine. I discussed need to wear cpap as much as able. She stated that she is having issues based on her migraines. We discussed trying to use this as much as able. Landen Clark APRN.MACY [facility] 10-31-2021 Note HNO ID: [id number] Author: Landen Clark APRN.CNP Service: ? Author Type: Nurse Practitioner Type: Progress Notes Filed: 10/31/2021 2:03 PM Note Text: COVID ReCOVer Clinic Virtual Follow-up Evaluation This is a virtual visit using Revision3 video visit. It required patient-provider interaction for the medical decision making as documented below. Initial reCOVer visit conducted: 09/19/21 with Landen Clark APRN.CNP for evaluation of prolonged, > 28 days, symptoms attributed to COVID-19 infection. COVID-19 testing was initially positive on 10/27/20 HPI: Leana Tran is a 35 year old female presenting with primary symptoms as listed below: Most significant symptoms copied directly from my initial note: Shortness of Breath-she becomes sob when doing strenuous activity like doing laundry or going up one flight of stairs. She states that it feels like she is having her chest squeezed. She states that it feels like she is not able to take a deep breath. She is able to walk around the grocery store, but will need a few breaks. She feels that she has to elevate the head of her bed to stop from becoming sob. She is sob when raising her arms over her. She has wheeze that is worst at night. She has Symbicort that has been using more regularly, She is unsure of impact. Cough -She has cough that is everyday. It is worse when overly exerted or at night. This is always dry. She denies daily pnd. She has gerd and is taking Pepcid bid, but this was first prescribed for her allergies. Chest discomfort/chest pain -She states that this is intermittent. She describes this as a feeling of pinching and squeezing in one location directly left of the sternum. This primarily occurs when she over exerts herself. She states that it will take 30min to 3 hours. This may occur when her blood pressure is either too high or too low . Palpitations -She has episodes where she feels her heart is irregular. She will have racing heart beats followed 1-2 slow beats. These patterns will change randomly. She states that in the first week of june, she woke up with a bad chest pain. Following this, her heart rate has been in a more normal range. It is not in the 30s any more Exertional intolerance -She is not able to do the same activities that she previously was not able to do. She is trying to get a job with shorter shifts. She will have to take regular breaks following activity. She states that if she does physical therapy, and then goes grocery shopping, her blood pressure. Fatigue -She has increased fatigue, this had improved once she started prazosin. Recently she had to take a course of steroids, and this made her fatigue worse. She does wears her cpap 60% of days. She states that it is primarily days that she does not have headaches. Dizziness -This has improved some, but still occurs every day. She states that this occurs primarily with change of position. This will usually feel like spinning or hazy/cloud like Syncope or Near syncope-She has not lost consciousness, but states that she has fallen and does not remember how. She does not think she blacked out , but is not able to figure out how she got to the ground. This has happened a few times since her infection. Temperature-She has temperature variations that occur daily. She states that she is always hot or cold. She will wake up drenched in sweat. She will take a shower in the morning to clear off. She She states that she started having long bone pain at the same time. She states that it feels like there is something scraping through her bones. This is worse at night. Joint pain/Body aches -She states that for the last few months, she has long bone pain. She states that nothing will make this feel better except for when her dog sleeps on her legs. She feels that the warmth has helped it feel better some Altered taste/smell -She feels that her taste and smell are off now. She states that she is not able to tell if milk is spoiled. She does smell burning plastic or things that are on fire regularly. Lack of concentration/brain fog -She has trouble with word finding, word selection. She recently completed speech therapy for this. This has improved Diarrhea or nausea -She has ibs. She feels that she is having increased diarrhea. She has increased constipation. She does not follow with gi Headaches -She has history of headache. She follows with someone for headache. She was recently started on emgality. Difficulty sleeping -see fatigue HF Symptoms - Orthopnea/Edema-She states that by the night time, she will have increased swelling in her legs. This will be the entire leg. These will go down by morning. Erectile Dysfunction -NA Changes in mood -She has mood that is all over the place. She does not have strong support at home, and feels that many people do not listen to her when she discusses these symptoms. She is an sma group (more content not included)... [facility] 10-30-2021 Jan zimmerman Notes Formatting of this note might be differe nt from the original. I don't think I need labs for her. If needed, please add lab orders for appointment on 11/03/21. Sharon Peterson Ma documented in this encounter [facility] 10-24-2021 Note HNO ID: [id number] Author: Cindy Rsuhing MD Service: ? Author Type: Physician Type: Progress Notes Filed: 10/24/2021 12:28 PM Note Text: VIRTUAL VISIT PROGRESS NOTE This is a virtual visit using [employer] video visit. It required patient-provider interaction for the medical decision making as documented below. Chief complaint: Patient presents with: Allergic Rhinitis Asthma Leana Tran is a 35 year old female seen for asthma, allergies. Since last visit, she has felt unwell. She has noticed since September, she has been developed hot flashes, night sweats, enlarged lymph nodes. She has had loss of appetite but no weight loss. She saw her PCP who referred her for a mammogram which reportedly re-demonstrated axillary lymphadenopathy. She is also following in [facility] clinic. She has noticed a rash that is erythematous, flat, across her arms, chest and persists for >24 hours. Does not respond to antihistamines. She saw Dr. Cardenas who evaluated for inducible laryngeal obstruction. Laryngeal exam was unremarkable. Prior work-up including C3, C4, and tryptase level was normal. She was advised to start higher dose antihistamine and monitor for any change in symptoms. Differential including inducible laryngeal obstruction given prior history of sensitivity to smells, idiopathic anaphylaxis, idiopathic urticaria and angioedema Allergies are controlled on Flonase and Cetirizine Asthma symptoms are also controlled, she is following with Pulmonary and [facility] clinic She recently received iodinated contrast with pre-medication and was able to tolerate As per prior HPI: Chronic rhinitis Sinus/lung infections Longstanding history of recurrent pneumonia 1-2 times per year and recurrent sinus infections. Had sinus surgery which helped reduce sinus infections- however she has had 2 infections in the last 2 months. Immunodeficiency evaluation performed by an sas developer in [place] showed protective strep pneumo titers after vaccination and normal immunoglobulin levels. Symptoms of allergies include: coughing, fever, rhinorrhea, itchy/watery eyes. Symptoms are worse during Spring/Fall season. Has tried the following medications: Cetirizine, Pepcid, Singulair she is not sure if they help. She has tried nasal sprays- she tried Flonase- states she did not tolerate- does not take due to headache. Patient does not have decreased/absent sense of smell, nasal polyps. Does notice vocal hoarseness. Current medications include: - Singulair 10mg nightly - Cetirizine 10mg daily - Pepcid 40mg daily Urticaria/Angioedema Shortness of breath State she has multiple episodes of described anaphylaxis. Reactions are describes as absent breath sounds, urticaria, and possibly angioedema Responds to Epinephrine, Benadryl Triggers include strong smells- describes smells as initially causing lightheadedness, inability to catch her breath, and then choking sensation in her throat- she is unable to breath at this point. Aside from strong smells, no consistent food/medication trigger ER visit on 06/04/21- presented with difficulty breathing, swallowing, pruritis, wheezing. Took EpiPen and Benadryl prior to arrival. No abnormalities noted on physical exam at the ER Last December saw an sas developer- skin testing was negative to environmental allergies She has a hx of GERD- on Nexium- which helps controls symptoms. Does get hives if the weather is hot or with stress Adverse drug reactions NSAIDs: angioedema Ceclor: shortness of breath, 10 years old Cefitin: shortness of breath, 10 years old Clindamycin: rash, voice change, high fever Erythromycin: angioedema, shortness of breath Gatifloxacin/Levofloxacin: unsure Penicillin: shortness of breah, childhood Sulfa: shortness of breath Froylan: rashes, skin discoloration Adverse reaction to contrast States she developed angioedema, hives, and passed out. She also developed hives/coughing with pre-medication Asthma Diagnosed around 15-16 years of age on Spirometry. States it is mild as long as the weather is not changing or allergic rhinitis triggered. Typical symptoms include: shortness of breath and cough. Nocturnal symptoms occur daily. She uses ICS/LABA in Spring/Fall, states when she takes it routinely she feels ill, like it makes her cough worse, this occurs with use of a spacer as well. She does not like taking Albuterol because it makes her heart race. Asthma is managed by her family medicine physician and veterinary laboratory technician. Has had 0 ER, hospitalization and ICU admissions for asthma since the last visit. Does not recall last use of Prednisone. PFTs recently performed in 03/2021. Has a hx of KATELIN on CPAP. Influenza and Pneumovax up to date Adverse food reaction Shellfish: hives Finned fish: hives HISTORY REVIEWED (electronic chart updated): PAST MEDICAL HISTORY Diagnosis Date Arachnoid cyst of pituitary (more content not included)... [facility] 10-24-2021 History of Present illness Narrative Formatting of this note is different fro m the original. VIRTUAL VISIT PROGRESS NOTE This is a virtual visit using Revision3 video visit. It required patient-provider interaction for the medical decision making as documented below. Chief complaint: Patient presents with: Allergic Rhinitis Asthma Leana Tran is a 35 year old female seen for asthma, allergies. Since last visit, she has felt unwell. She has noticed since September, she has been developed hot flashes, night sweats, enlarged lymph nodes. She has had loss of appetite but no weight loss. She saw her PCP who referred her for a mammogram which reportedly re-demonstrated axillary lymphadenopathy. She is also following in [facility] clinic. She has noticed a rash that is erythematous, flat, across her arms, chest and persists for >24 hours. Does not respond to antihistamines. She saw Dr. Cardenas who evaluated for inducible laryngeal obstruction. Laryngeal exam was unremarkable. Prior work-up including C3, C4, and tryptase level was normal. She was advised to start higher dose antihistamine and monitor for any change in symptoms. Differential including inducible laryngeal obstruction given prior history of sensitivity to smells, idiopathic anaphylaxis, idiopathic urticaria and angioedema Allergies are controlled on Flonase and Cetirizine Asthma symptoms are also controlled, she is following with Pulmonary and [facility] clinic She recently received iodinated contrast with pre-medication and was able to tolerate As per prior HPI: Chronic rhinitis Sinus/lung infections Longstanding history of recurrent pneumonia 1-2 times per year and recurrent sinus infections. Had sinus surgery which helped reduce sinus infections- however she has had 2 infections in the last 2 months. Immunodeficiency evaluation performed by an sas developer in [place] showed protective strep pneumo titers after vaccination and normal immunoglobulin levels. Symptoms of allergies include: coughing, fever, rhinorrhea, itchy/watery eyes. Symptoms are worse during Spring/Fall season. Has tried the following medications: Cetirizine, Pepcid, Singulair she is not sure if they help. She has tried nasal sprays- she tried Flonase- states she did not tolerate- does not take due to headache. Patient does not have decreased/absent sense of smell, nasal polyps. Does notice vocal hoarseness. Current medications include: - Singulair 10mg nightly - Cetirizine 10mg daily - Pepcid 40mg daily Urticaria/Angioedema Shortness of breath State she has multiple episodes of described anaphylaxis. Reactions are describes as absent breath sounds, urticaria, and possibly angioedema Responds to Epinephrine, Benadryl Triggers include strong smells- describes smells as initially causing lightheadedness, inability to catch her breath, and then choking sensation in her throat- she is unable to breath at this point. Aside from strong smells, no consistent food/medication trigger ER visit on 06/04/21- presented with difficulty breathing, swallowing, pruritis, wheezing. Took EpiPen and Benadryl prior to arrival. No abnormalities noted on physical exam at the ER Last December saw an sas developer- skin testing was negative to environmental allergies She has a hx of GERD- on Nexium- which helps controls symptoms. Does get hives if the weather is hot or with stress Adverse drug reactions NSAIDs: angioedema Ceclor: shortness of breath, 10 years old Cefitin: shortness of breath, 10 years old Clindamycin: rash, voice change, high fever Erythromycin: angioedema, shortness of breath Gatifloxacin/Levofloxacin: unsure Penicillin: shortness of breah, childhood Sulfa: shortness of breath Froylan: rashes, skin discoloration Adverse reaction to contrast States she developed angioedema, hives, and passed out. She also developed hives/coughing with pre-medication Asthma Diagnosed around 15-16 years of age on Spirometry. States it is mild as long as the weather is not changing or allergic rhinitis triggered. Typical symptoms include: shortness of breath and cough. Nocturnal symptoms occur daily. She uses ICS/LABA in Spring/Fall, states when she takes it routinely she feels ill, like it makes her cough worse, this occurs with use of a spacer as well. She does not like taking Albuterol because it makes her heart race. Asthma is managed by her family medicine physician and veterinary laboratory technician. Has had 0 ER, hospitalization and ICU admissions for asthma since the last visit. Does not recall last use of Prednisone. PFTs recently performed in 03/2021. Has a hx of KATELIN on CPAP. Influenza and Pneumovax up to date Adverse food reaction Shellfish: hives Finned fish: hives HISTORY REVIEWED (electronic chart updated): PAST MEDICAL HISTORY Diagnosis Date Arachnoid cyst of pituitary gland Asthma Bulging of cervical intervertebral disc C4-C7 Cholelithiases COVID-19 10/2020 Depression GERD (gastroesophageal reflux disease) Hypercoagulable state (HCC) Hypothyroid IBS (irritable bowel syndrome) KATELIN on CPAP Palpitations 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 Pseudotumor cerebri PTSD (post-traumatic stress disorder) PAST SURGICAL HISTORY Procedure Laterality Date ABDOMINAL SURGERY HX 2009 exploration APPENDECTOMY 2007 DELIVERY ONLY HYSTERECTOMY NOSE SURGERY HX 2010 REMOVAL GALLBLADDER TUBAL LIGATION HX FAMILY HISTORY Problem Relation Age of Onset Diabetes Mother uncontrolled Hypertension Mother Heart Attack Mother First MS at age 51 Cardiomyopathy Mother at age 52 Ischemic Heart Disease Mother Hypertension Father Diabetes Father Heart disease Father at age 57 Hypertension Sister Diabetes Sister Heart Son Being evaluated for HOCM (Dad has) Heart Son Being evaluated for HOCM (Dad has) other (Syncope) Son Neurocardiogenic Syncope Heart Son Being evaluated for HOCM (Dad has) Asthma Son No Ocular Disease Other Social History Tobacco Use Smoking status: Never Smokeless tobacco: Never Vaping Use Vaping Use: Never used Substance Use Topics Alcohol use: Not Currently Drug use: Not Currently Current Outpatient Medications Medication Sig SITagliptin (JANUVIA) 100 mg tablet Take 1 tablet by mouth once daily. Magnesium 250 mg tab Take 250 mg by mouth. Flaxseed Oil oil Take 1,000 mg by mouth once daily. Ascorbic Acid 100 mg tablet Take 100 mg by mouth once daily. Zinc 50 mg tab Take by mouth. fremanezumab-vfrm subcutaneus auto-injector 225 mg/1.5 mL (AJOVY) Inject 1.5 mL subcutaneously once every month. Do not shake. UBRELVY 100 mg tablet TAKE 1 TABLET BY MOUTH AT ONSET OF MIGRAINE. MAY REPEAT IN 2 HOURS NEEDED. MAX 2 TABLET IN 24 HOURS baclofen (LIORESAL) 10 mg tablet Take 10-20 mg by mouth at bedtime as needed. famotidine (PEPCID) 40 mg tablet Take 40 mg by mouth as needed. cetirizine (ZYRTEC) 10 mg tablet Take 10 mg by mouth as needed. diphenhydrAMINE (BENADRYL) 25 mg tablet Take 50 mg by mouth every 6 hours as needed. LORazepam (ATIVAN) 0.5 mg Take 0.5 mg by mouth twice daily as needed. zonisamide (ZONEGRAN) 100 mg capsule Take 1 capsule by mouth once daily. rimegepant (NURTEC ODT) 75 mg disintegrating tablet Take 1 tablet by mouth once daily as needed. No more than 1 dose in 24 hours. prazosin (MINIPRESS) 5 mg cap Take 5 mg by mouth daily at bedtime. mecobalamin, vitamin B12, 1,000 mcg ODT once daily. VITAMIN D-3 125 mcg (5,000 unit) tab Take 5,000 Units by mouth once daily. EPINEPHrine 0.1 mg/0.1 mL AutoInjector as needed. budesonide-formoterol (SYMBICORT) 160-4.5 mcg/actuation inhaler Inhale 2 Puffs as instructed as needed. lamoTRIgine (LAMICTAL) 150 mg tablet Take 150 mg by mouth daily at bedtime. sertraline (ZOLOFT) 100 mg tablet Take 200 mg by mouth daily at bedtime. levothyroxine (SYNTHROID) 112 mcg tablet Take 112 mcg by mouth daily before breakfast. Takes 1.5 tablets on Wednesdays ALBUTEROL INHALATION Inhale as instructed as needed. montelukast (SINGULAIR) 10 mg tablet Take 10 mg by mouth once daily. Current Facility-Administered Medications Medication Dose Route Frequency perflutren lipid microspheres 1.3 mL in NaCl (PF) 0.9% 10 mL injection (DEFINITY) INTRAVENOUS DIRECTED PRN sodium chloride 0.9 % (flush) 10 mL (BD POSIFLUSH) 10 mL INTRAVENOUS DIRECTED PRN ALLERGIES Allergen Reactions Iodinated Contrast * Anaphylaxis Tolerated with pre-medication on 09/22/21 Fish Containing Pro* Hives Shellfish Derived Hives Aleve [Naproxen] Angioedema Aspirin Angioedema Ceclor [Cefaclor] Shortness of Breath Ceftin [Cefuroxime * Shortness of Breath Clindamycin Rash, Shortness of Breath Erythromycin Swelling, Shortness of Breath Eucalyptus Anaphylaxis Gatifloxacin Diarrhea Lavender (Lavandula* Anaphylaxis Penicillins Rash, Itching Sulfa (Sulfonamide * Swelling, Shortness of Breath Vioxx [Rofecoxib] Unknown Froylan 28 [Drospirenon* Other: See Comments Skin discoloration of feet with OCPs Latex Rash, Itching Skin cracks and bleeds Levofloxacin Rash REVIEW OF SYSTEMS: Constitutional: No fevers, chills, fatigue, weight loss/gain, decreased appetite. Eyes: No itchy, red or watery eyes. No discharge. No vision changes. Ears/Nose/Throat: +as per HPI Respiratory: +as per HPI Cardiac/Vascular: No chest pain, palpitations, fainting. GI: No abdominal pain, nausea, vomiting, diarrhea, blood in stool. : No dysuria, hematuria. Musculoskeletal: No pain, joint swelling. Skin: +as per HPI Neurologic: No headaches, numbness, tingling, weakness, dizziness, LOC. Psychiatric: No sadness, depression, thoughts of harming self. Endocrine: +as per HPI Hematology/Lymphatics: +as per HPI Allergy/Immunology: +as per HPI PHYSICAL EXAMINATION: VIDEO EXAM: (if completed, performed via video enabled technology) GENERAL: alert and appropriate, in no distress and well-hydrated, well nourished SKIN: no rash noted HEAD: normocephalic, no abnormality or lesion noted NOSE: external nose normal without rhinorrhea OROPHARYNX: moist mucus membranes RESPIRATORY: breathing non-labored CHEST: equal chest rise with normal respiratory effort ASSESSMENT: Night sweats (primary encounter diagnosis) Lymphadenopathy Comment/Plan: 2 month history of night sweats and palpable lymphadenopathy- advise close follow-up with PCP and will refer to Hematology. Rash and nonspecific skin eruption Comment/Plan: Description of rash less likely urticaria or contact dermatitis- advise follow-up with local Support Services Coordinator Allergic rhinitis, unspecified seasonality, unspecified trigger Comment/Plan: Well-controlled, continue Flonase and oral antihistamine Moderate persistent asthma without complication Comment/Plan: Controlled, continue follow-up with Pulmonary and Covid-19 [facility] Cindy Rushing MD documented in this encounter [facility] 10-20-2021 Note HNO ID: [id number] Author: Micheal Perez MD Service: ? Author Type: Physician Type: Progress Notes Filed: 10/20/2021 5:28 PM Note Text: Heart, Vascular AND Thoracic [place] Department of Cardiac Surgery VIRTUAL VIDEO VISIT CONSULT OUTPATIENT VISIT SERVICE DATE: 10/20/2021 Patient: Leana Tran SERVICE TIME: 7:57 AM : 1985 This is a virtual video visit. It required patient-provider interaction for the medical decision making as documented below. Leana Tran has consented to this video encounter. Leana Tran is a 35 year old female seen for further management of palpitations/tachycardia. CHIEF COMPLAINT palpitations HISTORY OF PRESENT ILLNESS Leana Tran is a 35 year old female with a past history of GERD, sleep apnea, IBS, migraines, hypothyroidism, asthma, COVID-19 in fall 2020. She was seen by cardiology in July 2021, HR was 44 on EKG, had echo, was given a 24 hour BP monitor, advised to increase salt. She now reports weakness, tachycardia described as heart pounding, lower leg numbness and discoloration along with numbness and tingling. No syncope. Average HR 60-80 at home average BP 120's/70's ECHO 08/17/21 - The left ventricle is normal in size. Left ventricular systolic function is normal. EF = 58 ? 5% (2D biplane) Normal left ventricular diastolic function. - The right ventricle is normal in size. Right ventricular systolic function is normal. - Leaflets not well visualized. PAST MEDICAL HISTORY Diagnosis Date Arachnoid cyst of pituitary gland Asthma Bulging of cervical intervertebral disc C4-C7 Cholelithiases COVID-19 10/2020 Depression GERD (gastroesophageal reflux disease) Hypercoagulable state (HCC) Hypothyroid IBS (irritable bowel syndrome) KATELIN on CPAP Palpitations 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 Pseudotumor cerebri PTSD (post-traumatic stress disorder) PAST SURGICAL HISTORY Procedure Laterality Date ABDOMINAL SURGERY HX 2010 exploration APPENDECTOMY 2008 DELIVERY ONLY HYSTERECTOMY NOSE SURGERY HX 2010 REMOVAL GALLBLADDER TUBAL LIGATION HX FAMILY HISTORY Problem Relation Age of Onset Diabetes Mother uncontrolled Hypertension Mother Heart Attack Mother First MS at age 51 Cardiomyopathy Mother at age 52 Ischemic Heart Disease Mother Hypertension Father Diabetes Father Heart disease Father at age 57 Hypertension Sister Diabetes Sister Heart Son Being evaluated for HOCM (Dad has) Heart Son Being evaluated for HOCM (Dad has) other (Syncope) Son Neurocardiogenic Syncope Heart Son Being evaluated for HOCM (Dad has) Asthma Son No Ocular Disease Other Social History Tobacco Use Smoking status: Never Smokeless tobacco: Never Vaping Use Vaping Use: Never used Substance Use Topics Alcohol use: Not Currently Drug use: Not Currently ALLERGIES Allergen Reactions Iodinated Contrast * Anaphylaxis Does not tolerate with pre-medication Fish Containing Pro* Hives Shellfish Derived Hives Aleve [Naproxen] Angioedema Aspirin Angioedema Ceclor [Cefaclor] Shortness of Breath Ceftin [Cefuroxime * Shortness of Breath Clindamycin Rash, Shortness of Breath Erythromycin Swelling, Shortness of Breath Eucalyptus Anaphylaxis Gatifloxacin Diarrhea Lavender (Lavandula* Anaphylaxis Penicillins Rash, Itching Sulfa (Sulfonamide * Swelling, Shortness of Breath Vioxx [Rofecoxib] Unknown Froylan 28 [Drospirenon* Other: See Comments Skin discoloration of feet with OCPs Latex Rash, Itching Skin cracks and bleeds Levofloxacin Rash CURRENT MEDICATIONS Magnesium 250 mg tabTake 250 mg by mouth.Disp: Rfl: Flaxseed Oil oilTake 1,000 mg by mouth once daily.Disp: Rfl: Ascorbic Acid 100 mg tabletTake 100 mg by mouth once daily.Disp: Rfl: Zinc 50 mg tabTake by mouth.Disp: Rfl: fremanezumab-vfrm subcutaneus auto-injector 225 mg/1.5 mL (Exeros)Inject 1.5 mL subcutaneously once every month. Do not shake.Disp: 1 mLRfl: 11 UBRELVY 100 mg tabletTAKE 1 TABLET BY MOUTH AT ONSET OF MIGRAINE. MAY REPEAT IN 2 HOURS NEEDED. MAX 2 TABLET IN 24 HOURSDisp: Rfl: baclofen (LIORESAL) 10 mg tabletTake 10-20 mg by mouth at bedtime as needed.Disp: Rfl: famotidine (PEPCID) 40 mg tabletTake 40 mg by mouth as needed.Disp: Rfl: cetirizine (ZYRTEC) 10 mg tabletTake 10 mg by mouth as needed.Disp: Rfl: diphenhydrAMINE (BENADRYL) 25 mg tabletTake 50 mg by mouth every 6 hours as needed.Disp: Rfl: LORazepam (ATIVAN) 0.5 mgTake 0.5 mg by mouth twice daily as needed.Disp: Rfl: zonisamide (ZONEGRAN) 100 mg capsuleTake 1 capsule by mouth once daily.Disp: 90 capsuleRfl: 3 rimegepant (NURTEC ODT) 75 mg disintegrating tabletTake 1 tablet by mouth once daily as needed. No more than 1 dose in 24 hours.Disp: 8 tabletRfl: 11 prazosin (MINIPRESS) 5 mg capTake 5 mg by mouth daily at (more content not included)... [facility] 10-20-2021 Note HNO ID: [id number] Author: Micheal Perez MD Service: ? Author Type: Physician Type: Procedures Filed: 11/30/2021 8:04 PM Note Text: EP STAFF ADDENDUM: Patient had a min HR of 45 bpm, max HR of 147 bpm, and avg HR of 74 bpm. Predominant underlying rhythm was Sinus Rhythm. Isolated SVEs were rare (<1.0%), and no SVE Couplets or SVE Triplets were present. Isolated VEs were rare (<1.0%), VE Couplets were rare (<1.0%), and no VE Triplets were present. Micheal Perez MD November 30, 2021 8:04 PM Patient Name: Leana Tran : 1985 Ordering Provider: Micheal Perez Indication: R00.2 Palpitations Type of Monitor: Extended Monitoring-Zio Patch Enrollment Dates: 11/09/2021-11/22/2021 [facility] 10-20-2021 History of Present illness Narrative Formatting of this note is different fro m the original. Heart, Vascular & Thoracic [place] Department of Cardiac Surgery VIRTUAL VIDEO VISIT CONSULT OUTPATIENT VISIT SERVICE DATE: 10/20/2021 Patient: Leana Tran SERVICE TIME: 7:57 AM : 1985 This is a virtual video visit. It required patient-provider interaction for the medical decision making as documented below. Leana Tran has consented to this video encounter. Leana Tran is a 35 year old female seen for further management of palpitations/tachycardia. CHIEF COMPLAINT palpitations HISTORY OF PRESENT ILLNESS Leana Tran is a 35 year old female with a past history of GERD, sleep apnea, IBS, migraines, hypothyroidism, asthma, COVID-19 in fall 2020. She was seen by cardiology in July 2021, HR was 44 on EKG, had echo, was given a 24 hour BP monitor, advised to increase salt. She now reports weakness, tachycardia described as heart pounding, lower leg numbness and discoloration along with numbness and tingling. No syncope. Average HR 60-80 at home average BP 120's/70's ECHO 08/17/21 - The left ventricle is normal in size. Left ventricular systolic function is normal. EF = 58 5% (2D biplane) Normal left ventricular diastolic function. - The right ventricle is normal in size. Right ventricular systolic function is normal. - Leaflets not well visualized. PAST MEDICAL HISTORY Diagnosis Date Arachnoid cyst of pituitary gland Asthma Bulging of cervical intervertebral disc C4-C7 Cholelithiases COVID-19 10/2020 Depression GERD (gastroesophageal reflux disease) Hypercoagulable state (HCC) Hypothyroid IBS (irritable bowel syndrome) KATELIN on CPAP Palpitations 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 Pseudotumor cerebri PTSD (post-traumatic stress disorder) PAST SURGICAL HISTORY Procedure Laterality Date ABDOMINAL SURGERY HX 2009 exploration APPENDECTOMY 2007 DELIVERY ONLY HYSTERECTOMY NOSE SURGERY HX 2010 REMOVAL GALLBLADDER TUBAL LIGATION HX FAMILY HISTORY Problem Relation Age of Onset Diabetes Mother uncontrolled Hypertension Mother Heart Attack Mother First MS at age 51 Cardiomyopathy Mother at age 52 Ischemic Heart Disease Mother Hypertension Father Diabetes Father Heart disease Father at age 57 Hypertension Sister Diabetes Sister Heart Son Being evaluated for HOCM (Dad has) Heart Son Being evaluated for HOCM (Dad has) other (Syncope) Son Neurocardiogenic Syncope Heart Son Being evaluated for HOCM (Dad has) Asthma Son No Ocular Disease Other Social History Tobacco Use Smoking status: Never Smokeless tobacco: Never Vaping Use Vaping Use: Never used Substance Use Topics Alcohol use: Not Currently Drug use: Not Currently ALLERGIES Allergen Reactions Iodinated Contrast * Anaphylaxis Does not tolerate with pre-medication Fish Containing Pro* Hives Shellfish Derived Hives Aleve [Naproxen] Angioedema Aspirin Angioedema Ceclor [Cefaclor] Shortness of Breath Ceftin [Cefuroxime * Shortness of Breath Clindamycin Rash, Shortness of Breath Erythromycin Swelling, Shortness of Breath Eucalyptus Anaphylaxis Gatifloxacin Diarrhea Lavender (Lavandula* Anaphylaxis Penicillins Rash, Itching Sulfa (Sulfonamide * Swelling, Shortness of Breath Vioxx [Rofecoxib] Unknown Froylan 28 [Drospirenon* Other: See Comments Skin discoloration of feet with OCPs Latex Rash, Itching Skin cracks and bleeds Levofloxacin Rash CURRENT MEDICATIONS Magnesium 250 mg tab^Take 250 mg by mouth.^Disp: ^Rfl: Flaxseed Oil oil^Take 1,000 mg by mouth once daily.^Disp: ^Rfl: Ascorbic Acid 100 mg tablet^Take 100 mg by mouth once daily.^Disp: ^Rfl: Zinc 50 mg tab^Take by mouth.^Disp: ^Rfl: fremanezumab-vfrm subcutaneus auto-injector 225 mg/1.5 mL (AJOVY)^Inject 1.5 mL subcutaneously once every month. Do not shake.^Disp: 1 mL^Rfl: 11 UBRELVY 100 mg tablet^TAKE 1 TABLET BY MOUTH AT ONSET OF MIGRAINE. MAY REPEAT IN 2 HOURS NEEDED. MAX 2 TABLET IN 24 HOURS^Disp: ^Rfl: baclofen (LIORESAL) 10 mg tablet^Take 10-20 mg by mouth at bedtime as needed.^Disp: ^Rfl: famotidine (PEPCID) 40 mg tablet^Take 40 mg by mouth as needed.^Disp: ^Rfl: cetirizine (ZYRTEC) 10 mg tablet^Take 10 mg by mouth as needed.^Disp: ^Rfl: diphenhydrAMINE (BENADRYL) 25 mg tablet^Take 50 mg by mouth every 6 hours as needed.^Disp: ^Rfl: LORazepam (ATIVAN) 0.5 mg^Take 0.5 mg by mouth twice daily as needed.^Disp: ^Rfl: zonisamide (ZONEGRAN) 100 mg capsule^Take 1 capsule by mouth once daily.^Disp: 90 capsule^Rfl: 3 rimegepant (NURTEC ODT) 75 mg disintegrating tablet^Take 1 tablet by mouth once daily as needed. No more than 1 dose in 24 hours.^Disp: 8 tablet^Rfl: 11 prazosin (MINIPRESS) 5 mg cap^Take 5 mg by mouth daily at bedtime. ^Disp: ^Rfl: mecobalamin, vitamin B12, 1,000 mcg ODT^once daily.^Disp: ^Rfl: VITAMIN D-3 125 mcg (5,000 unit) tab^Take 5,000 Units by mouth once daily.^Disp: ^Rfl: SITagliptin (JANUVIA) 100 mg tablet^Take 100 mg by mouth as needed.^Disp: ^Rfl: EPINEPHrine 0.1 mg/0.1 mL AutoInjector^as needed. ^Disp: ^Rfl: budesonide-formoterol (SYMBICORT) 160-4.5 mcg/actuation inhaler^Inhale 2 Puffs as instructed as needed. ^Disp: ^Rfl: lamoTRIgine (LAMICTAL) 150 mg tablet^Take 150 mg by mouth daily at bedtime. ^Disp: ^Rfl: sertraline (ZOLOFT) 100 mg tablet^Take 200 mg by mouth daily at bedtime. ^Disp: ^Rfl: levothyroxine (SYNTHROID) 112 mcg tablet^Take 112 mcg by mouth daily before breakfast. Takes 1.5 tablets on Wednesdays ^Disp: ^Rfl: ALBUTEROL INHALATION^Inhale as instructed as needed.^Disp: ^Rfl: montelukast (SINGULAIR) 10 mg tablet^Take 10 mg by mouth once daily. ^Disp: ^Rfl: PHYSICAL EXAMINATION: VIDEO EXAM: (if completed, performed via video enabled technology) PATIENT ENTERED QUESTIONNAIRE SCORES ALERT: indicates Moderate to Severe Depression PHQ-9 10/17/2021 10/08/2021 10/06/2021 Score 14 14 14 ALERT: indicates Moderate to Severe Anxiety FANNY - 7 SCORES 10/17/2021 10/08/2021 09/09/2021 FANNY-7 Score 11 11 11 PROMIS Global Health - (T-Scores - the mean of general population = 50. Five points is a clinically meaningful difference.) 08/11/2021 05/19/2021 02/25/2021 Physical T-Score 34.9 32.4 37.4 Mental T-Score 33.8 33.8 28.4 Haley Warren RN October 20, 2021 7:40 AM EP STAFF ADDENDUM: I have reviewed the above information and examined the patient and confirm the above with the following additions/modifications. HISTORY OF PRESENT ILLNESS: Ms. Tran is a 35-year-old female with a history of hypothyroidism, asthma, migraines, irritable bowel syndrome, obesity, sleep apnea and deconditioning. She has also had COVID last year. She also has multiple psychological issues like anxiety, depression and posttraumatic stress disorder for which she is on multiple medications. She was thinking that she has a follow-up appointment with Dr. Sai Perez whom she saw in July 2021. She has had palpitations which she has on a daily basis and some atypical chest pain which is more like a squeezing has no relationship to exertion. She denies any history of syncope but tends to have more symptoms of background headache previously had a 10-minute tilt test with neurology without any significant problems. She currently continues to have daily palpitations but denies presyncope or syncope she does not know much about her family history as she is adopted but is not aware of any definite family history of sudden cardiac PHYSICAL EXAMINATION: VIDEO EXAM: (if completed, performed via video enabled technology) GENERAL: alert and appropriate, in no distress, well-hydrated, well nourished and happy, smiling, interactive SKIN: no rash noted HEAD: normocephalic, no abnormality or lesion noted EYES: no injection and visual acuity is grossly normal EARS: external ears normal, no mastoid tenderness described NOSE: external nose normal without rhinorrhea NECK: full ROM, no obvious large swelling RESPIRATORY: breathing non-labored and no grunting/flaring/retractions CHEST: equal chest rise with normal respiratory effort EXTREMITIES: Appearing normal NEUROLOGIC: no obvious deficit Previous available EKG reviewed with the patient which shows sinus bradycardia IMPRESSION: Ms. Tran is a 35-year-old female with palpitations which do not seem to be from supraventricular or ventricular tachycardia but most likely from sinus tachycardia or may have an element of autonomic dysfunction. I suggested we give her a 2- week event monitor and also do a complete tilt test to assess for any autonomic dysfunction. I reassured her regarding the benign presence of her findings and we talked about the dietary and lifestyle modifications to improve deconditioning, reduce weight and minimize her risk of autonomic dysfunction but will further get back to her with recommendations after the tilt test and the 2-week event monitor. She will continue to follow with Dr. Sai Perez PLAN: 1. 2-week event monitor 2. Tilt table evaluation 3. Follow-up with Dr. Sai Perez MD October 20, 2021 5:26 PM This note was generated using [employer] voice recognition system. Please excuse any typographical errors. I spent 30 minutes with the patient; greater than 50% of the time was spent in counselling and co-ordinating the care based on my impression and plan above. documented in this encounter [facility] 10-19-2021 Note HNO ID: [id number] Author: Bhargavi Saldana PA-C Service: ? Author Type: Physician Youth Ministry Director Type: Progress Notes Filed: 10/19/2021 2:41 PM Note Text: Headache Center - Follow up Virtual Visit During this COVID-19 pandemic, patient's headache clinic evaluation was scheduled as a virtual visit using the following platform Zoom Leana Tran was identified by name and and consented to the video evaluation and its limitations. Based on this evaluation it may be necessary for them to schedule a follow up evaluation with me or other neurologists for formal physical examination and if necessary,other studies. Accompanied by: Self Primary Problem List: ACTIVE PROBLEM LIST Coagulopathy (Hcc) Arachnoid Cyst of Pituitary Gland Symptomatic Bradycardia Blood Pressure Instability Subjective Muscle Weakness Physical Deconditioning Transient Diplopia Orthostatic Lightheadedness Screening for Endocrine Disorder Primary Hypothyroidism Moderate Persistent Asthma Without Complication Gastroesophageal Reflux Disease Allergic Rhinitis Allergic Reaction to Contrast Dye Drug Reaction Adverse Food Reaction Diffuse Pain Decreased Activity Tolerance Orthostatic Intolerance Chief Complaint: Migraines Impression and Plan from last visit: 08/05/21 with me IMPRESSION: Leana Tran is a 35 year old year old female, with a history of chronic migraine, arachnoid cyst of pituitary gland, asthma, cholelithiasis, depression, GERD, hypothyroidism, IBS, KATELIN on CPAP, PTSD and pseudotumor cerebri following up today virtually for migraines. Her neurological examination is essentially normal at this visit. Has now completed 3 rounds of Botox PREEMPT Protocol and has only seen improvement in severity. Discussed option to add in CGRP monthly injection - will trial emgality - reviewed dosing and potential side effects. We will try to add in emgality in tandem with botox, but if insurance will not approve them together, then she would like to discontinue botox to trial a monthly injection. Discussed using nurtec as first line rescue as tylenol is never effective. Labs are up to date. Patient verbalized understanding and agreed to treatment plan. She will follow up for botox or sooner if needed. PLAN: 1. Continue Botox PREEMPT Protocol, zonisamide 100mg, lamictal (with an outside department), zoloft (with an outside department) 2. Continue nurtec as needed 3. Trial emgality 4. Follow up for botox, PRN Interval Headache History: Leana Tran is a 35 year old year old female, with a history of chronic migraine, arachnoid cyst of pituitary gland, asthma, cholelithiasis, depression, GERD, hypothyroidism, IBS, KATELIN on CPAP, PTSD and pseudotumor cerebri following up today virtually for migraines. Since the last visit, the patient states that her headaches have improved. She was due for her fourth botox on 10/06/21. She did the loading dose of Emgality and had flu like symptoms for one week. She did the second month of Emgality and got a flu like illness again. She saw worsening headaches for one week then headaches improved minimally. She received a denial letter for Emgality (this was due to using gepant for rescue) but she thought it meant she had to discontinue botox. Pain relief from Emgality was not worth the flu like symptoms. Takes nurtec and ubrelvy interchangeably - both are typically effective without side effects. Reports constipation is not a major issue for her. Last emgality was 10/11/21. Headache 1 Onset: - Years - worse in the last year Location: right Quality/Description: sharp, burning and throbbing Associated Symptoms: Photophobia: yes Phonophobia: yes Nausea: yes Vomiting: yes Worse with activity: yes Number of migraine headache days/month: 10 Migraine headache severity: 7/10 Number of NON-migraine headache days/month: 15 Number of headache free days/month: 5 Aura: right upper and lower extremity numbness/tingling and weakness along with vision abnormalities which is binocular with kaleidoscope vision alongside her headaches. Days missed from work or school in the last month: 0 days Preventative: Botox PREEMPT Protocol, zonisamide 100mg, lamictal (with an outside department), zoloft (with an outside department), emgality Abortive: nurtec, ubrelvy (with an outside department) Analgesic Butalbital/acetaminophen/caffeine (Fioricet) Anti-Convulsant Lamotrigine (Lamictal) Topiramate (Topamax, Trokendi XL, Qudexy) Zonisamide (Zonegram) Anti-Depressant and Antipsychotic Citalopram (Celexa) Fluoxetine (Prozac) Sertraline (Zoloft) Anti-Migraine Rizatriptan (Maxalt) Sumatriptan (Imitrex, Sumavel) MABs Galcanezumab (Emgality) GEPANTS Ubrogepant (Ubrelvy) Rimegepant (Nurtec) Botulinum Toxin Onabotulinum Toxin A (Botox) 3 rounds PAST MEDICAL HISTORY Diagnosis Date Arachnoid cyst of pituitary gland Asthma Bulg (more content not included)... [facility] 10-19-2021 Instruction s Bhargavi Saldana PA-C - 10/19/2021 2:31 PM EDT Consider restart Botox PREEMPT Protocol Discontinue Emgality Start Ajovy - once monthly - wait until 11/10 to inject the first dose [facility]: [phone] Consider aimovig or vyepti Please follow up in 3 months or sooner if needed documented in this encounter [facility] 10-19-2021 History of Present illness Narrative Formatting of this note is different fro m the original. Headache Center - Follow up Virtual Visit During this COVID-19 pandemic, patient's headache clinic evaluation was scheduled as a virtual visit using the following platform Zoom Leana Tran was identified by name and and consented to the video evaluation and its limitations. Based on this evaluation it may be necessary for them to schedule a follow up evaluation with me or other neurologists for formal physical examination and if necessary,other studies. Accompanied by: Self Primary Problem List: ACTIVE PROBLEM LIST Coagulopathy (Hcc) Arachnoid Cyst of Pituitary Gland Symptomatic Bradycardia Blood Pressure Instability Subjective Muscle Weakness Physical Deconditioning Transient Diplopia Orthostatic Lightheadedness Screening for Endocrine Disorder Primary Hypothyroidism Moderate Persistent Asthma Without Complication Gastroesophageal Reflux Disease Allergic Rhinitis Allergic Reaction to Contrast Dye Drug Reaction Adverse Food Reaction Diffuse Pain Decreased Activity Tolerance Orthostatic Intolerance Chief Complaint: Migraines Impression and Plan from last visit: 08/05/21 with me IMPRESSION: Leana Tran is a 35 year old year old female, with a history of chronic migraine, arachnoid cyst of pituitary gland, asthma, cholelithiasis, depression, GERD, hypothyroidism, IBS, KATELIN on CPAP, PTSD and pseudotumor cerebri following up today virtually for migraines. Her neurological examination is essentially normal at this visit. Has now completed 3 rounds of Botox PREEMPT Protocol and has only seen improvement in severity. Discussed option to add in CGRP monthly injection - will trial emgality - reviewed dosing and potential side effects. We will try to add in emgality in tandem with botox, but if insurance will not approve them together, then she would like to discontinue botox to trial a monthly injection. Discussed using nurtec as first line rescue as tylenol is never effective. Labs are up to date. Patient verbalized understanding and agreed to treatment plan. She will follow up for botox or sooner if needed. PLAN: 1. Continue Botox PREEMPT Protocol, zonisamide 100mg, lamictal (with an outside department), zoloft (with an outside department) 2. Continue nurtec as needed 3. Trial emgality 4. Follow up for botox, PRN Interval Headache History: Leana Tran is a 35 year old year old female, with a history of chronic migraine, arachnoid cyst of pituitary gland, asthma, cholelithiasis, depression, GERD, hypothyroidism, IBS, KATELIN on CPAP, PTSD and pseudotumor cerebri following up today virtually for migraines. Since the last visit, the patient states that her headaches have improved. She was due for her fourth botox on 10/06/21. She did the loading dose of Emgality and had flu like symptoms for one week. She did the second month of Emgality and got a flu like illness again. She saw worsening headaches for one week then headaches improved minimally. She received a denial letter for Emgality (this was due to using gepant for rescue) but she thought it meant she had to discontinue botox. Pain relief from Emgality was not worth the flu like symptoms. Takes nurtec and ubrelvy interchangeably - both are typically effective without side effects. Reports constipation is not a major issue for her. Last emgality was 10/11/21. Headache 1 Onset: - Years - worse in the last year Location: right Quality/Description: sharp, burning and throbbing Associated Symptoms: Photophobia: yes Phonophobia: yes Nausea: yes Vomiting: yes Worse with activity: yes Number of migraine headache days/month: 10 Migraine headache severity: 7/10 Number of NON-migraine headache days/month: 15 Number of headache free days/month: 5 Aura: right upper and lower extremity numbness/tingling and weakness along with vision abnormalities which is binocular with kaleidoscope vision alongside her headaches. Days missed from work or school in the last month: 0 days Preventative: Botox PREEMPT Protocol, zonisamide 100mg, lamictal (with an outside department), zoloft (with an outside department), emgality Abortive: nurtec, ubrelvy (with an outside department) Analgesic Butalbital/acetaminophen/caffeine (Fioricet) Anti-Convulsant Lamotrigine (Lamictal) Topiramate (Topamax, Trokendi XL, Qudexy) Zonisamide (Zonegram) Anti-Depressant and Antipsychotic Citalopram (Celexa) Fluoxetine (Prozac) Sertraline (Zoloft) Anti-Migraine Rizatriptan (Maxalt) Sumatriptan (Imitrex, Sumavel) MABs Galcanezumab (Emgality) GEPANTS Ubrogepant (Ubrelvy) Rimegepant (Nurtec) Botulinum Toxin Onabotulinum Toxin A (Botox) 3 rounds 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 Pseudotumor cerebri PTSD (post-traumatic stress disorder) PAST SURGICAL HISTORY Procedure Laterality Date ABDOMINAL SURGERY HX 2010 exploration APPENDECTOMY 2008 DELIVERY ONLY HYSTERECTOMY NOSE SURGERY HX 2011 REMOVAL GALLBLADDER TUBAL LIGATION HX ALLERGIES Allergen Reactions Iodinated Contrast * Anaphylaxis Does not tolerate with pre-medication Fish Containing Pro* Hives Shellfish Derived Hives Aleve [Naproxen] Angioedema Aspirin Angioedema Ceclor [Cefaclor] Shortness of Breath Ceftin [Cefuroxime * Shortness of Breath Clindamycin Rash, Shortness of Breath Erythromycin Swelling, Shortness of Breath Eucalyptus Anaphylaxis Gatifloxacin Diarrhea Lavender (Lavandula* Anaphylaxis Penicillins Rash, Itching Sulfa (Sulfonamide * Swelling, Shortness of Breath Vioxx [Rofecoxib] Unknown Froylan 28 [Drospirenon* Other: See Comments Skin discoloration of feet with OCPs Latex Rash, Itching Skin cracks and bleeds Levofloxacin Rash Current Medications: Magnesium 250 mg tab^Take 250 mg by mouth.^Disp: ^Rfl: Flaxseed Oil oil^^Disp: ^Rfl: Ascorbic Acid 100 mg tablet^Take 100 mg by mouth once daily.^Disp: ^Rfl: Zinc 50 mg tab^Take by mouth.^Disp: ^Rfl: UBRELVY 100 mg tablet^TAKE 1 TABLET BY MOUTH AT ONSET OF MIGRAINE. MAY REPEAT IN 2 HOURS NEEDED. MAX 2 TABLET IN 24 HOURS^Disp: ^Rfl: baclofen (LIORESAL) 10 mg tablet^Take 10-20 mg by mouth at bedtime as needed.^Disp: ^Rfl: famotidine (PEPCID) 40 mg tablet^Take 40 mg by mouth as needed.^Disp: ^Rfl: cetirizine (ZYRTEC) 10 mg tablet^Take 10 mg by mouth as needed.^Disp: ^Rfl: diphenhydrAMINE (BENADRYL) 25 mg tablet^Take 50 mg by mouth every 6 hours as needed.^Disp: ^Rfl: LORazepam (ATIVAN) 0.5 mg^Take 0.5 mg by mouth twice daily as needed.^Disp: ^Rfl: fluticasone (FLONASE) 50 mcg/actuation nasal spray^Use 1 [place] in each nostril twice daily.^Disp: 3 Each^Rfl: 11 zonisamide (ZONEGRAN) 100 mg capsule^Take 1 capsule by mouth once daily.^Disp: 90 capsule^Rfl: 3 rimegepant (NURTEC ODT) 75 mg disintegrating tablet^Take 1 tablet by mouth once daily as needed. No more than 1 dose in 24 hours.^Disp: 8 tablet^Rfl: 11 prazosin (MINIPRESS) 5 mg cap^Take 5 mg by mouth daily at bedtime. ^Disp: ^Rfl: mecobalamin, vitamin B12, 1,000 mcg ODT^once daily.^Disp: ^Rfl: VITAMIN D-3 125 mcg (5,000 unit) tab^Take 5,000 Units by mouth once daily.^Disp: ^Rfl: SITagliptin (JANUVIA) 100 mg tablet^Take 100 mg by mouth as needed.^Disp: ^Rfl: EPINEPHrine 0.1 mg/0.1 mL AutoInjector^as needed. ^Disp: ^Rfl: budesonide-formoterol (SYMBICORT) 160-4.5 mcg/actuation inhaler^Inhale 2 Puffs as instructed as needed. ^Disp: ^Rfl: lamoTRIgine (LAMICTAL) 150 mg tablet^Take 150 mg by mouth daily at bedtime. ^Disp: ^Rfl: sertraline (ZOLOFT) 100 mg tablet^Take 200 mg by mouth daily at bedtime. ^Disp: ^Rfl: levothyroxine (SYNTHROID) 112 mcg tablet^Take 112 mcg by mouth daily before breakfast. Takes 1.5 tablets on Wednesdays ^Disp: ^Rfl: ALBUTEROL INHALATION^Inhale as instructed as needed.^Disp: ^Rfl: montelukast (SINGULAIR) 10 mg tablet^Take 10 mg by mouth once daily. ^Disp: ^Rfl: fremanezumab-vfrm subcutaneus auto-injector 225 mg/1.5 mL (AJOVY)^Inject 1.5 mL subcutaneously once every month. Do not shake.^Disp: 1 mL^Rfl: 11 I have reviewed the Health Status Assessment responses and discussed these with the patient: yes Bhargavi Saldana PA-C HEADACHE SCORES: Headache Questions 06/29/2021 07/29/2021 10/17/2021 ID Migraine Screener: - - - ER visits in the last year: - - - ER visits since last office visit: 2 0 0 Hospital stays in the last year: - - - Hospital stays since last office visit 0 0 0 Limited ADLs in the last month: 10 10 16 Days missed from work or school in the last month: 0 0 0 Days headache pain free in the last month: 0 2 5 Days per month with ALL of the following symptoms - decreased productivity, light sensitivity and nausea: 10 10 10 Initial improvement of headache after botox injection at last visit: Minimally improved No change Not applicable, I did not have a botox injection at my last visit PRN medication usage in the last month: 15 5 10 Patient impression of improvement since last visit: Very much worse No change Minimally improved HIT-6 06/29/2021 07/29/2021 10/17/2021 HIT-6 68 (Severe impact) 66 (Severe impact) 64 (Severe impact) FANNY - 2/7 SCORES 09/09/2021 10/08/2021 10/17/2021 FANNY-2 Score 4 3 3 FANNY-7 Score 11 11 11 Migraine Specific QOL - Higher scores indicate better HRQL 06/29/2021 07/29/2021 10/17/2021 Role Function-Restrictive Transformed Score (range: 0-100) 45.71 42.86 40 Role Function-Preventive Transformed Score (range: 0-100) 55 50 50 Emotional Function Transformed Score (range: 0-100) 20 53.33 40 PHQ-9 10/06/2021 10/08/2021 10/17/2021 Score 14 14 14 Studies to Review: No MRI Head/Brain - Last 2 Impressions MRI BRAIN WO/W IVCON Exam End: 06/16/2021 11:27 AM (Final result) Impression: IMPRESSION: Trace fluid in the left mastoid air cells, small likely retention cysts in the maxillary and right sphenoid sinuses, and trace right frontal and bilateral ethmoid sinus mucosal thickening.... MRI BRAIN WO/W IVCON Collected: 03/31/2016 2:08 PM (Final result) Impression: IMPRESSION: No acute intracranial findings. Chronic left mastoid sinus opacification.... MRA Head and/or Neck - Last 2 Impressions MRA BRAIN WO IVCON ([place]) Collected: 03/31/2016 1:36 PM (Final result) Impression: IMPRESSION: No acute intracranial findings. Chronic left mastoid sinus opacification. No evidence of venous sinus thrombosis. Unremarkable MRA brain and MRA neck. [facility]mm [facility] Transcribe Date/Time: Mar 31 2016 2:40P Dictated by : PABLO ORELLANA MD This examination was interpreted and the report reviewed and electronically signed by: PABLO ORELLANA MD on Mar 31 2016 2:54PM EST CT Head/Brain - Last [address] BRAIN WO IVCON Exam End: 06/27/2021 2:42 PM (Final result) Impression: IMPRESSION: Normal examination of the brain. Mild paranasal sinus inflammatory change which could potentially contribute to headache. Cmm Inspector: ROBER Transcribe Date/Time: Jun 27 2021 3:07P Dictated by : CHRISTY ARMAS MD This examination was interpreted and the report reviewed and electronically signed by: CHRISTY ARMAS MD on Jun 27 2021 3:10PM EST Labs to Review: No - Most recent CMP and CBC below CMP 1 mo ago Protein, Total 6.3 - 8.0 g/dL 7.1 Albumin 3.9 - 4.9 g/dL 4.4 Calcium, Total 8.5 - 10.2 mg/dL 10.0 Bilirubin, Total 0.2 - 1.3 mg/dL 0.4 Alkaline Phosphatase 34 - 123 U/L 73 AST 13 - 35 U/L 20 ALT 7 - 38 U/L 36 Glucose 74 - 99 mg/dL 102 High BUN 7 - 21 mg/dL 9 Creatinine 0.58 - 0.96 mg/dL 0.86 Sodium 136 - 144 mmol/L 138 Potassium 3.7 - 5.1 mmol/L 4.1 Chloride 97 - 105 mmol/L 103 CO2 22 - 30 mmol/L 23 Anion Gap 9 - 18 mmol/L 12 Estimated Glomerular Filtration Rate >=60 mL/min/1.73m 89 CBC + DIFF 06/27/21 1 mo ago (06/27/21) WBC 3.70 - 11.00 k/uL 6.89 RBC 3.90 - 5.20 m/uL 5.02 Hemoglobin 11.5 - 15.5 g/dL 14.9 Hematocrit 36.0 - 46.0 % 42.8 MCV 80.0 - 100.0 fL 85.3 MCH 26.0 - 34.0 pg 29.7 MCHC 30.5 - 36.0 g/dL 34.8 RDW-CV 11.5 - 15.0 % 11.5 Platelet Count 150 - 400 k/uL 251 MPV 9.0 - 12.7 fL 9.7 Neut% % 71.4 Abs Neut 1.45 - 7.50 k/uL 4.92 Lymph% % 21.0 Abs Lymph 1.00 - 4.00 k/uL 1.45 [place]% % 4.4 Abs [place] <0.87 k/uL 0.30 Eosin% % 2.5 Abs Eosin <0.46 k/uL 0.17 Baso% % 0.4 Abs Baso <0.11 k/uL 0.03 Immature Gran % % 0.3 Abs Immature Gran <0.10 k/uL <0.03 NRBC /100 WBC 0.0 Absolute nRBC <0.01 k/uL <0.01 Diff Type Auto New Health Issues: Yes, had swollen lymph nodes - had mammogram and ultrasound earlier today. Reports upper body has been rashy - will get hot flash and then freezing cold. Review of Systems: Review of system: unchanged from the previous visit (sleep patterns, mood, energy, appetite, stress, exercising). Physical Examination: Vital Signs: No vital signs taken for this visit due to nature of virtual visit. LMP 2015 General: well appearing, in no acute distress, alert Pain Behaviors: no pain behaviors observed Neurological: Mental Status: Alert and oriented to person, place and time. Affect is normal. Speech is spontaneous and fluent without dysarthria. Short and mcc memory, cognition and general fund of knowledge are good. Attention span and concentration are good. HEENT: Head is normocephalic and features were symmetric. Musculoskeletal: Patient able to sit up right in chair for entirety of visit. Cranial Nerves: III, IV, -EOMI: full. VII-face is symmetric without evidence of weakness. VIII-hearing intact. IMPRESSION: Chronic migraine without aura, intractable, without status migrainosus (primary encounter diagnosis) Leana Tran is a 35 year old year old female, with a history of chronic migraine, arachnoid cyst of pituitary gland, asthma, cholelithiasis, depression, GERD, hypothyroidism, IBS, KATELIN on CPAP, PTSD and pseudotumor cerebri following up today virtually for migraines. Her neurological examination is essentially normal at this visit. Minimal improvement on emgality and has experienced flu like symptoms after two of the injections. Will discontinue and replace with Ajov - she will wait until 11/10/21 to inject first dose. Does not wish to restart Botox PREEMPT Protocol at this time but will consider. Will also consider aimovig or vyepti. Patient verbalized understanding and agreed to treatment plan. Labs are up to date. She will follow up in 3 months or sooner if needed. PLAN: Continue zonisamide 100mg, lamictal (with an outside department), zoloft (with an outside department) Discontinue emgality 3. Continue nurtec, ubrelvy (with an outside department) as needed 4. Start Ajovy once monthly 5. Follow up 3 months, PRN Prior Authorization: We will get a precert for Calcitonin Gene Related Peptide Monoclonal Antibody, Fremanezumab. This patient meets AHS criteria for treatment with CGRP MAB, She has Chronic Migraine Headache (CM), Chronic Migraine without aura, without mention of intractable migraine without mention of status migrainosus which occurs at least 15 days per month for at least 4 hours per day. The FDA has approved CGRP MAB for prevention of migraine. Specifically, the patient has 10 migraines per month, lasting 4 or more hours/d associated with photophobia, phonophobia, nausea, vomiting for three or more months. Medication overuse headache has been ruled out. Patient is currently taking a Gepant (Nurtec) and ublrevy for acute treatment of her migraine. The following preventative medications have been tried for 3 or more months without benefit or discontinued due and/or side effects. Anti-Convulsant Lamotrigine (Lamictal) Topiramate (Topamax, Trokendi XL, Qudexy) Zonisamide (Zonegram) Anti-Depressant and Antipsychotic Citalopram (Celexa) Fluoxetine (Prozac) Sertraline (Zoloft) MABs Galcanezumab (Emgality) Botulinum Toxin Onabotulinum Toxin A (Botox) 3 rounds The following abortive medications have been tried but require high frequency use which can lead to Medication Overuse Headache: Analgesic Butalbital/acetaminophen/caffeine (Fioricet) Anti-Migraine Rizatriptan (Maxalt) Sumatriptan (Imitrex, Sumavel) GEPANTS Ubrogepant (Ubrelvy) Rimegepant (Nurtec) HEADACHE MANAGEMENT: (You are the primary guardian of your health and headache. Keep track of all medications: This includes the reason for use, side effects and benefits.) MEDICATION TREATMENT: Medications to Start Taking fremanezumab-vfrm subcutaneus auto-injector 225 mg/1.5 mL (AJOVY) Inject 1.5 mL subcutaneously once every month. Do not shake. Headache education was done. Discussed lifestyle modification including increased oral hydration, decreased caffeine, exercise and stress management. Discussed treatment options including preventive and acute medications, natural supplements, and infusion therapy. Discussed medication overuse headache and to limit use of acute treatments to no more than 2 days/week or 10 days/month. Discussed medication side effects, adverse reactions and drug interactions. Written educational materials and patient instructions outlining all of the above were given. RESEARCH: None at this time Follow-up: 3 months, PRN Level of Service: Virtual Visit 20 minutes Bhargavi Saldana PA-C Headache Section [facility] October 19, 2021 documented in this encounter [facility] 10-14-2021 Note HNO ID: [id number] Author: Dolores Valdes PSYD Service: ? Author Type: Physician Type: Progress Notes Filed: 10/17/2021 10:05 PM Note Text: [facility] Psychology Progress Note Billing codes: Keisha PSYCHOLOGY: FOLLOW-UP APPOINTMENT PROGRESS NOTE- Virtual Visit Due to the federal emergency declaration and the need for ongoing mental health services, the following visit was completed virtually and informed consent obtained orally to reduce the risk of COVID-19 exposure. Oral consent to services related to virtual visits was obtained after information was sent via Revision3 or read to patient if VoodooVoxhart not available. Leana Tran 10/14/2021 [id number] PROVIDER: Dolores Valdes PSYD CPT Code: 2183884 Virtual PSYTX PT AND/FAMILY 45 MINS Time spent doing therapy with patient: 8:59 AM - 9:43 AM Parties Present: Patient Interventions: Cognitive Behavioral MENTAL STATUS: Mood: dysthymic, anxious Affect: mood-congruent Thoughts/Associations: ruminative Suicidal/Homicidal Ideation: None expressed or evidenced MEDICATIONS: Per medical record: Current Outpatient Medications Medication Sig UBRELVY 100 mg tablet TAKE 1 TABLET BY MOUTH AT ONSET OF MIGRAINE. MAY REPEAT IN 2 HOURS NEEDED. MAX 2 TABLET IN 24 HOURS baclofen (LIORESAL) 10 mg tablet Take 10-20 mg by mouth at bedtime as needed. rOPINIRole (REQUIP) 0.25 mg tablet Take 0.25 mg by mouth. (Patient not taking: Reported on 09/21/2021) galcanezumab-gnlm (EMGALITY SYRINGE) 120 mg/mL syringe Inject 2 mL subcutaneously once every month. Inject two pens the first month as a loading dose. Do not shake. galcanezumab-gnlm (EMGALITY SYRINGE) 120 mg/mL syringe Inject 1 mL subcutaneously once every month. Do not shake. famotidine (PEPCID) 40 mg tablet Take 40 mg by mouth as needed. cetirizine (ZYRTEC) 10 mg tablet Take 10 mg by mouth as needed. diphenhydrAMINE (BENADRYL) 25 mg tablet Take 50 mg by mouth every 6 hours as needed. LORazepam (ATIVAN) 0.5 mg Take 0.5 mg by mouth twice daily as needed. zonisamide (ZONEGRAN) 100 mg capsule Take 1 capsule by mouth once daily. rimegepant (NURTEC ODT) 75 mg disintegrating tablet Take 1 tablet by mouth once daily as needed. No more than 1 dose in 24 hours. prazosin (MINIPRESS) 5 mg cap Take 5 mg by mouth daily at bedtime. onabotulinum toxin type A (BOTOX) 100 unit solr by INJECTION(UNSPECIFIED PARENTERAL ROUTES) route every 3 months. mecobalamin, vitamin B12, 1,000 mcg ODT once daily. VITAMIN D-3 125 mcg (5,000 unit) tab Take 5,000 Units by mouth once daily. SITagliptin (JANUVIA) 100 mg tablet Take 100 mg by mouth as needed. EPINEPHrine 0.1 mg/0.1 mL AutoInjector as needed. budesonide-formoterol (SYMBICORT) 160-4.5 mcg/actuation inhaler Inhale 2 Puffs as instructed as needed. lamoTRIgine (LAMICTAL) 150 mg tablet Take 150 mg by mouth daily at bedtime. sertraline (ZOLOFT) 100 mg tablet Take 200 mg by mouth daily at bedtime. levothyroxine (SYNTHROID) 112 mcg tablet Take 112 mcg by mouth daily before breakfast. Takes 1.5 tablets on Wednesdays ALBUTEROL INHALATION Inhale as instructed as needed. montelukast (SINGULAIR) 10 mg tablet Take 10 mg by mouth once daily. Current Facility-Administered Medications Medication Dose Route Frequency perflutren lipid microspheres 1.3 mL in NaCl (PF) 0.9% 10 mL injection (DEFINITY) INTRAVENOUS DIRECTED PRN sodium chloride 0.9 % (flush) 10 mL (BD POSIFLUSH) 10 mL INTRAVENOUS DIRECTED PRN Psychiatric Medication Issues: No change from previous appointment DIAGNOSIS: (F32.A) Depression, unspecified depression type (primary encounter diagnosis) (F41.9) Anxiety (R25.9) Abnormal involuntary movement PROGRESS TO DATE/ASSESSMENT: -Patient has been attempting to address triggers including overactivity/overexertion by changing work hours to 3 days/week 6-hour shifts in the evenings. She notes that with these changes to her schedule, she continues to struggle with this transition. She notes intermittent symptoms including recently skin rash and temperature dysregulation. With regard to mood she has started local counseling with a plan to begin EMDR for trauma processing. Reviewed psychoeducation on grounding and mindful awareness techniques engaged patient in a brief mindful meditation exercise for increased present moment awareness. TREATMENT PLAN/GOALS/OBJECTIVES: Homework: Mindfulness meditation practice Follow Up: 2 weeks Dolores Valdes Psy.D. Associate Staff, [facility] 10-14-2021 History of Present illness Narrative Formatting of this note is different fro m the original. [facility] Psychology Progress Note Billing codes: Keisha PSYCHOLOGY: FOLLOW-UP APPOINTMENT PROGRESS NOTE- Virtual Visit Due to the federal emergency declaration and the need for ongoing mental health services, the following visit was completed virtually and informed consent obtained orally to reduce the risk of COVID-19 exposure. Oral consent to services related to virtual visits was obtained after information was sent via Revision3 or read to patient if VoodooVoxhart not available. Leana Tran 10/14/2021 [id number] PROVIDER: Dolores Valdes PSYD CPT Code: 0312488 Virtual PSYTX PT &/FAMILY 45 MINS Time spent doing therapy with patient: 8:59 AM - 9:43 AM Parties Present: Patient Interventions: Cognitive Behavioral MENTAL STATUS: Mood: dysthymic, anxious Affect: mood-congruent Thoughts/Associations: ruminative Suicidal/Homicidal Ideation: None expressed or evidenced MEDICATIONS: Per medical record: Current Outpatient Medications Medication Sig UBRELVY 100 mg tablet TAKE 1 TABLET BY MOUTH AT ONSET OF MIGRAINE. MAY REPEAT IN 2 HOURS NEEDED. MAX 2 TABLET IN 24 HOURS baclofen (LIORESAL) 10 mg tablet Take 10-20 mg by mouth at bedtime as needed. rOPINIRole (REQUIP) 0.25 mg tablet Take 0.25 mg by mouth. (Patient not taking: Reported on 09/21/2021) galcanezumab-gnlm (EMGALITY SYRINGE) 120 mg/mL syringe Inject 2 mL subcutaneously once every month. Inject two pens the first month as a loading dose. Do not shake. galcanezumab-gnlm (EMGALITY SYRINGE) 120 mg/mL syringe Inject 1 mL subcutaneously once every month. Do not shake. famotidine (PEPCID) 40 mg tablet Take 40 mg by mouth as needed. cetirizine (ZYRTEC) 10 mg tablet Take 10 mg by mouth as needed. diphenhydrAMINE (BENADRYL) 25 mg tablet Take 50 mg by mouth every 6 hours as needed. LORazepam (ATIVAN) 0.5 mg Take 0.5 mg by mouth twice daily as needed. zonisamide (ZONEGRAN) 100 mg capsule Take 1 capsule by mouth once daily. rimegepant (NURTEC ODT) 75 mg disintegrating tablet Take 1 tablet by mouth once daily as needed. No more than 1 dose in 24 hours. prazosin (MINIPRESS) 5 mg cap Take 5 mg by mouth daily at bedtime. onabotulinum toxin type A (BOTOX) 100 unit solr by INJECTION(UNSPECIFIED PARENTERAL ROUTES) route every 3 months. mecobalamin, vitamin B12, 1,000 mcg ODT once daily. VITAMIN D-3 125 mcg (5,000 unit) tab Take 5,000 Units by mouth once daily. SITagliptin (JANUVIA) 100 mg tablet Take 100 mg by mouth as needed. EPINEPHrine 0.1 mg/0.1 mL AutoInjector as needed. budesonide-formoterol (SYMBICORT) 160-4.5 mcg/actuation inhaler Inhale 2 Puffs as instructed as needed. lamoTRIgine (LAMICTAL) 150 mg tablet Take 150 mg by mouth daily at bedtime. sertraline (ZOLOFT) 100 mg tablet Take 200 mg by mouth daily at bedtime. levothyroxine (SYNTHROID) 112 mcg tablet Take 112 mcg by mouth daily before breakfast. Takes 1.5 tablets on Wednesdays ALBUTEROL INHALATION Inhale as instructed as needed. montelukast (SINGULAIR) 10 mg tablet Take 10 mg by mouth once daily. Current Facility-Administered Medications Medication Dose Route Frequency perflutren lipid microspheres 1.3 mL in NaCl (PF) 0.9% 10 mL injection (DEFINITY) INTRAVENOUS DIRECTED PRN sodium chloride 0.9 % (flush) 10 mL (BD POSIFLUSH) 10 mL INTRAVENOUS DIRECTED PRN Psychiatric Medication Issues: No change from previous appointment DIAGNOSIS: (F32.A) Depression, unspecified depression type (primary encounter diagnosis) (F41.9) Anxiety (R25.9) Abnormal involuntary movement PROGRESS TO DATE/ASSESSMENT: -Patient has been attempting to address triggers including overactivity/overexertion by changing work hours to 3 days/week 6-hour shifts in the evenings. She notes that with these changes to her schedule, she continues to struggle with this transition. She notes intermittent symptoms including recently skin rash and temperature dysregulation. With regard to mood she has started local counseling with a plan to begin EMDR for trauma processing. Reviewed psychoeducation on grounding and mindful awareness techniques engaged patient in a brief mindful meditation exercise for increased present moment awareness. TREATMENT PLAN/GOALS/OBJECTIVES: Homework: Mindfulness meditation practice Follow Up: 2 weeks Dolores Valdes Psy.D. Associate Staff, [facility] documented in this encounter [facility] 10-12-2021 Note HNO ID: [id number] Author: Ruth Villaseñor MD Service: ? Author Type: Physician Type: Progress Notes Filed: 10/12/2021 2:42 PM Note Text: [facility] Date of Service: 10/12/2021 Patient: Leana Tran Medical Record: [id number] Primary Care Physician: Cas Dowell MD Referring Provider: SELF Last Rheumatology visit: 09/21/2021 (with Ruth Villaseñor) Chief complaint: discuss test results History of Present Illness Leana Tran is a 35 year old female with medical history of GERD, Hypothyroidism, Asthma, Migraine, IBS, KATELIN on CPAP on and off, Depression, bleeding disorder( unknown cause), peptic ulcer disease treated in 2011, recurrent upper respiratory infections presents on 10/12/2021 for virtual visit for evaluation of discuss test results. HISTORY OF PRESENT ILLNESS Seen as new patient in 09/2021 She reports doing well until 10/2020 when she had covid infection and reports multiple symptoms going on since then. She reports hot flashes and sweating at night. She also reports persistent cough, chest pain and sob since covid 19 which is getting worse. Patient reports pain over arms, forearms, legs, shoulders since 05/2020, which is gradually getting worse Pain is worst at night, continuous throughout the day, worse with acitivity No joint stiffness Reports whole hand swelling sometimes but without pain, she thinks they are swollen today. Also reports leg swelling with pitting. Has short term memory problem and extreme fatigue. She denies any oral ulcers, malar rash, discoid rash. She Tylenol 1000mg bid that helps to some extent, cant take NSAID due to allergy Has tried PT that does not help Denies history of inflammatory eye disease, inflammatory bowel disease, psoriasis, dysentery, chlamydia, gonorrhea or other STDs, history of kidney disease/biopsy, nephrolithiasis, tuberculosis, miscarriages, blood clots, malignancy, pleural/pericardial effusion, CHF, CAD, CVA. She did not have synovitis on exam, had multiple tender spots. INTERVAL HISTORY Today she continues to feel same. Has not had USG for LN yet. Awaiting follow up in [facility] clinic. Discussed blood test results and discussed that there is no evidence of rheumatologic/autoimmune/inflammatory arthritis. Patient-Entered Data PAIN EVALUATION No data found in the last 1 encounters. PROMIS Assessments PROMIS Assessments 08/11/2021 09/14/2021 10/06/2021 Physical Health Percentile 7 % - - Mental Health Percentile 5 % - - Pain Score 3 - - Pain Interference Percentile - 4 % 4 % Fatigue Percentile 10 % 4 % 5 % Physical Function Percentile 12 % 12 % 18 % RAPID 3 [place] Activities of Daily Living 10/06/2021 7:11 PM 09/14/2021 11:36 AM Dress self? Without ANY difficulty Without ANY difficulty Get in and out of bed? With SOME difficulty With SOME difficulty Walk outdoors? With SOME difficulty With SOME difficulty Wash and dry body? Without ANY difficulty Without ANY difficulty Get in and out of car? With SOME difficulty With SOME difficulty RAPID 3 Disease Activity Weighed Score Levels: 0 - 1: Near Remission 1.3 - 2.0: Low Severity 2.3 - 4.0: Moderate Severity 4.3 - 10.0: High Severity RAPID-3 Weighed Score 09/14/2021 10/06/2021 RAPID 3 Weighed Score 5.28 (High Severity (HS)) 5.28 (High Severity (HS)) Review of Systems REVIEW OF SYSTEMS: Joint pain: Denies, has only bone pain Joint swelling: Denies Joint stiffness: Denies Back/neck pain: Whole back, worse with activities Enthesopathic pain: Denies Fever: Has hot flashes but never checked temp Change in weight: Gaining wt Lymphadenopathy: Left axilla and right postauricular Mucosal ulcers: Denies Skin rash: Denies Photosensitive rash: Denies Alopecia: yes Chest Pain: Yes since covid Dyspnea: Yes, since covid, getting worse Cough : Denies Difficulty swallowing: Solids sometimes Nausea/vomiting: Nausea sometimes Heartburn: Denies Abdominal Pain: yes Diarrhea/constipation :alternating diarrhea and constipation form IBS Blood in stool : Bright red on wiping Dysuria/hematuria: Denies Muscle pain: yes Muscle weakness: Denies Numbness: Bilateral hands and feet on and off Headache: From migraine Seizures: Denies Raynaud's: Denies Sicca: Dry eyes Currently menstruating: Hysterectomy in 2019 for menorrhagia Past Medical History 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 Pseudotumor cerebri PTSD (post-traumatic stress disorder) Past Surgical History PAST SURGICAL HISTORY Procedure Laterality Date ABDOMINAL SURGERY HX 2009 exploration (more content not included)... [facility] 10-12-2021 History of Present illness Narrative Formatting of this note is different fro m the original. Images from the original note were not included. Rheumatology Outpatient Clinic Date of Service: 10/12/2021 Patient: Leana Tran Medical Record: [id number] Primary Care Physician: Cas Dowell MD Referring Provider: SELF Last Rheumatology visit: 09/21/2021 (with Ruth Villaseñor) Chief complaint: discuss test results History of Present Illness Leana Tran is a 35 year old female with medical history of GERD, Hypothyroidism, Asthma, Migraine, IBS, KATELIN on CPAP on and off, Depression, bleeding disorder( unknown cause), peptic ulcer disease treated in 2011, recurrent upper respiratory infections presents on 10/12/2021 for virtual visit for evaluation of discuss test results. HISTORY OF PRESENT ILLNESS Seen as new patient in 09/2021 She reports doing well until 10/2020 when she had covid infection and reports multiple symptoms going on since then. She reports hot flashes and sweating at night. She also reports persistent cough, chest pain and sob since covid 19 which is getting worse. Patient reports pain over arms, forearms, legs, shoulders since 05/2020, which is gradually getting worse Pain is worst at night, continuous throughout the day, worse with acitivity No joint stiffness Reports whole hand swelling sometimes but without pain, she thinks they are swollen today. Also reports leg swelling with pitting. Has short term memory problem and extreme fatigue. She denies any oral ulcers, malar rash, discoid rash. She Tylenol 1000mg bid that helps to some extent, cant take NSAID due to allergy Has tried PT that does not help Denies history of inflammatory eye disease, inflammatory bowel disease, psoriasis, dysentery, chlamydia, gonorrhea or other STDs, history of kidney disease/biopsy, nephrolithiasis, tuberculosis, miscarriages, blood clots, malignancy, pleural/pericardial effusion, CHF, CAD, CVA. She did not have synovitis on exam, had multiple tender spots. INTERVAL HISTORY Today she continues to feel same. Has not had USG for LN yet. Awaiting follow up in Long covid clinic. Discussed blood test results and discussed that there is no evidence of rheumatologic/autoimmune/inflammatory arthritis. Patient-Entered Data PAIN EVALUATION No data found in the last 1 encounters. PROMIS Assessments PROMIS Assessments 08/11/2021 09/14/2021 10/06/2021 Physical Health Percentile 7 % - - Mental Health Percentile 5 % - - Pain Score 3 - - Pain Interference Percentile - 4 % 4 % Fatigue Percentile 10 % 4 % 5 % Physical Function Percentile 12 % 12 % 18 % RAPID 3 [place] Activities of Daily Living 10/06/2021 7:11 PM 09/14/2021 11:36 AM Dress self? Without ANY difficulty Without ANY difficulty Get in and out of bed? With SOME difficulty With SOME difficulty Walk outdoors? With SOME difficulty With SOME difficulty Wash and dry body? Without ANY difficulty Without ANY difficulty Get in and out of car? With SOME difficulty With SOME difficulty RAPID 3 Disease Activity Weighed Score Levels: 0 - 1: Near Remission 1.3 - 2.0: Low Severity 2.3 - 4.0: Moderate Severity 4.3 - 10.0: High Severity RAPID-3 Weighed Score 09/14/2021 10/06/2021 RAPID 3 Weighed Score 5.28 (High Severity (HS)) 5.28 (High Severity (HS)) Review of Systems REVIEW OF SYSTEMS: Joint pain: Denies, has only bone pain Joint swelling: Denies Joint stiffness: Denies Back/neck pain: Whole back, worse with activities Enthesopathic pain: Denies Fever: Has hot flashes but never checked temp Change in weight: Gaining wt Lymphadenopathy: Left axilla and right postauricular Mucosal ulcers: Denies Skin rash: Denies Photosensitive rash: Denies Alopecia: yes Chest Pain: Yes since covid Dyspnea: Yes, since covid, getting worse Cough : Denies Difficulty swallowing: Solids sometimes Nausea/vomiting: Nausea sometimes Heartburn: Denies Abdominal Pain: yes Diarrhea/constipation :alternating diarrhea and constipation form IBS Blood in stool : Bright red on wiping Dysuria/hematuria: Denies Muscle pain: yes Muscle weakness: Denies Numbness: Bilateral hands and feet on and off Headache: From migraine Seizures: Denies Raynaud's: Denies Sicca: Dry eyes Currently menstruating: Hysterectomy in 2019 for menorrhagia Past Medical History PAST MEDICAL HISTORY Diagnosis Date Arachnoid cyst of pituitary gland Asthma Bulging of cervical intervertebral disc C4-C7 Cholelithiases COVID-19 10/2020 Depression GERD (gastroesophageal reflux disease) Hypercoagulable state (HCC) Hypothyroid IBS (irritable bowel syndrome) AKTELIN on CPAP 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 Pseudotumor cerebri PTSD (post-traumatic stress disorder) Past Surgical History PAST SURGICAL HISTORY Procedure Laterality Date ABDOMINAL SURGERY HX 2009 exploration APPENDECTOMY 2008 DELIVERY ONLY HYSTERECTOMY NOSE SURGERY HX 2010 REMOVAL GALLBLADDER TUBAL LIGATION HX Family History The patient denies family history of SLE, RA, Sarcoidosis, Scleroderma, IBD or Psoriasis. FAMILY HISTORY Problem Relation Age of Onset Diabetes Mother uncontrolled Hypertension Mother Heart Attack Mother First MS at age 51 Cardiomyopathy Mother at age 52 Ischemic Heart Disease Mother Hypertension Father Diabetes Father Heart disease Father at age 57 Hypertension Sister Diabetes Sister Heart Son Being evaluated for HOCM (Dad has) Heart Son Being evaluated for HOCM (Dad has) other (Syncope) Son Neurocardiogenic Syncope Heart Son Being evaluated for HOCM (Dad has) Asthma Son No Ocular Disease Other Social History Social History Tobacco Use Smoking status: Never Smokeless tobacco: Never Vaping Use Vaping Use: Never used Substance Use Topics Alcohol use: Not Currently Drug use: Not Currently Current Medications Current Outpatient Medications on File Prior to Visit Medication Sig galcanezumab-gnlm (EMGALITY SYRINGE) 120 mg/mL syringe Inject 2 mL subcutaneously once every month. Inject two pens the first month as a loading dose. Do not shake. galcanezumab-gnlm (EMGALITY SYRINGE) 120 mg/mL syringe Inject 1 mL subcutaneously once every month. Do not shake. famotidine (PEPCID) 40 mg tablet Take 40 mg by mouth as needed. cetirizine (ZYRTEC) 10 mg tablet Take 10 mg by mouth as needed. diphenhydrAMINE (BENADRYL) 25 mg tablet Take 50 mg by mouth every 6 hours as needed. LORazepam (ATIVAN) 0.5 mg Take 0.5 mg by mouth twice daily as needed. fluticasone (FLONASE) 50 mcg/actuation nasal spray Use 1 [place] in each nostril twice daily. zonisamide (ZONEGRAN) 100 mg capsule Take 1 capsule by mouth once daily. rimegepant (NURTEC ODT) 75 mg disintegrating tablet Take 1 tablet by mouth once daily as needed. No more than 1 dose in 24 hours. prazosin (MINIPRESS) 5 mg cap Take 5 mg by mouth daily at bedtime. onabotulinum toxin type A (BOTOX) 100 unit solr by INJECTION(UNSPECIFIED PARENTERAL ROUTES) route every 3 months. mecobalamin, vitamin B12, 1,000 mcg ODT once daily. VITAMIN D-3 125 mcg (5,000 unit) tab Take 5,000 Units by mouth once daily. SITagliptin (JANUVIA) 100 mg tablet Take 100 mg by mouth as needed. EPINEPHrine 0.1 mg/0.1 mL AutoInjector as needed. budesonide-formoterol (SYMBICORT) 160-4.5 mcg/actuation inhaler Inhale 2 Puffs as instructed as needed. lamoTRIgine (LAMICTAL) 150 mg tablet Take 150 mg by mouth daily at bedtime. sertraline (ZOLOFT) 100 mg tablet Take 200 mg by mouth daily at bedtime. levothyroxine (SYNTHROID) 112 mcg tablet Take 112 mcg by mouth daily before breakfast. Takes 1.5 tablets on Wednesdays ALBUTEROL INHALATION Inhale as instructed as needed. montelukast (SINGULAIR) 10 mg tablet Take 10 mg by mouth once daily. Current Facility-Administered Medications on File Prior to Visit Medication perflutren lipid microspheres 1.3 mL in NaCl (PF) 0.9% 10 mL injection (DEFINITY) sodium chloride 0.9 % (flush) 10 mL (BD POSIFLUSH) Labs CBC Latest Ref Rng & Units 06/14/2021 06/27/2021 07/06/2021 09/21/2021 WBC 3.70 - 11.00 k/uL - 6.89 6.53 7.18 HEMOGLOBIN 11.5 - 15.5 g/dL - 14.9 14.5 14.6 HEMATOCRIT 36.0 - 46.0 % 46.3(H) 42.8 42.8 43.5 PLATELETS 150 - 400 k/uL 277 251 241 225 ABS NEUT (ANC) 1.45 - 7.50 k/uL - 4.92 4.57 - ABS LYMPH 1.00 - 4.00 k/uL - 1.45 1.36 - CMP Latest Ref Rng & Units 05/24/2021 06/27/2021 09/21/2021 SODIUM 136 - 144 mmol/L 138 138 136 POTASSIUM 3.7 - 5.1 mmol/L 3.8 4.1 4.0 CHLORIDE 97 - 105 mmol/L 101 103 101 CO2 22 - 30 mmol/L 25 23 23 GLUCOSE 74 - 99 mg/dL 87 102(H) 164(H) BUN 7 - 21 mg/dL 9 9 9 CREATININE 0.58 - 0.96 mg/dL 0.90 0.86 0.90 CALCIUM, TOTAL 8.5 - 10.2 mg/dL 9.7 10.0 9.6 AST 13 - 35 U/L - 20 14 ALT 7 - 38 U/L - 36 28 ALKALINE PHOSPHATASE 34 - 123 U/L - 73 64 ESR, WSR Latest Ref Rng & Units 09/21/2021 WSR 0 - 20 mm/hr 15 CRP Latest Ref Rng & Units 09/21/2021 CRP <0.9 mg/dL <0.3 C3, C4 Latest Ref Rng & Units 07/25/2021 C3 86 - 166 mg/dL 165 C4 13 - 46 mg/dL 32 CK Latest Ref Rng & Units 06/27/2021 07/01/2021 CK 42 - 196 U/L 54 51 Antibodies Latest Ref Rng & Units 06/14/2021 09/21/2021 PT SEC 9.7 - 13.0 sec 11.0 - PT INR 0.9 - 1.3 1.0 - PTT 23.0 - 32.4 sec 32.7(H) - APTT SCREEN 24.0 - 35.1 seconds 34.6 - THROMBIN TIME <18.6 seconds <16.8 - CARDIOLIPIN AB, IGM <12.5 MPL - 13.7(H) Imaging Last XR Hand/Finger - Impression Only No resulted procedures found. Last MRI Hand - Impression Only No resulted procedures found. Last XR Chest - Impression Only XR CHEST 2V FRONTAL/LAT Exam End: 09/30/2021 9:52 AM (Final result) Impression: IMPRESSION: See Result. Cmm Inspector: ROBER Transcribe Date/Time: Sep 30 2021 2:15P... Last XR Cervical Spine - Impression Only No resulted procedures found. Health Maintenance Current Immunizations Reviewed on 09/19/2021 Name Date INFLUENZA 11/20/2019 , 11/06/2019 , 10/27/2019 Physical Exam Deferred due to virtual visit Impression Diagnoses: (R53.81, R53.83) Malaise and fatigue (primary encounter diagnosis) (R59.1) Lymphadenopathy Plan Orders this visit: No orders found for this visit on 10/12/21. 1. Multiple soft tissue tender spots/Fatigue, suspect chronic pain syndrome Patient reports bone pain over bilateral forearm and legs She has multiple soft tissue tender spots over jay forearm, shoulder blades, cervical paraspinal areas Also has fatigue, short term memory loss She denies pain over joint and had no synovitis during exam last visit, labs reviewed ordered in [facility] she does not appear to have an autoimmune/inflammatory arthropathy including RA, SpA, reactive arthritis. Since her LINH is negative ( reviewed in care everywhere done in 02/26) , no systemic signs and symptoms of SLE, no cytopenia, normal C3, C4, normal renal function it is unlikely that she has SLE. TSH, 25-hydroxy vitamin D, vitamin B12 levels, reviewed- normal because sleep apnea can cause or worsen pain, recommend that to use CPAP daily. Discussed recommended management including regular graded aerobic exercise, improving sleep hygiene and quality, continuing with healthy diet, Vit D supplementation, Physical therapy and aquatic pool therapy. There are some reports on benefits from chriopractic and acupuncture procedures, Yoga, aletha chi, therapeutic massage, and other body-based therapies to relieve muscle spasms and stiffness. Medication, while important, are not first choice and not indicated for all patients, and not the only treatment. Patient education, exercise, self- management skills and alternative therapies are recommended. Certain patient may benefit from Duloxetine, gabapentin or lyrica. In certain cases, a referral to a vision specialist may be required, in patients who fail traditional management approach as prescribed by primary care physician and as listed above. 2. Lymphadenopathy Patient awaiting US to further evaluate the mass Defer to PCP 3. Health care maintenance/Malignancy screening Defer to PCP Return if symptoms worsen or fail to improve. I spent a total of 22 minutes on the date of the service which included discussion of test results and plan of care. Ruth Villaseñor MD Rheumatology documented in this encounter [facility] 09-30-2021 History of Present illness Narrative Formatting of this note might be differe nt from the original. Radiology Service Progress Note PATIENT NAME: Leana Tran DATE OF SERVICE: September 30, 2021 TIME: 9:53 AM PATIENT IDENTITY VERIFICATION COMPLETED USING TWO (2) IDENTIFIERS: Name and Date of confirmed by patient verbally. FALL SCREENING: Has the patient had 2 falls in the last year or 1 fall with injury or currently using an Ambulatory Assistive Device (Walker, Cane, Wheelchair, Crutches, etc.)? No PATIENT GENDER DATA: Female. status: : No status: NO. PATIENT RELEVANT IMPLANT DATA REVIEWED: Not Applicable RADIOLOGY DEPARTMENT: General X-ray: Exam(s) Completed: Chest X-Ray PERIPHERAL IV DATA: Not applicable SIGNED BY: Magda Gil September 30, 2021 9:53 AM documented in this encounter [facility] 09-27-2021 History of Present illness Narrative Formatting of this note might be differe nt from the original. PULM FUNCTION SMARTBLOCK: Provider: Landen Clark APRN.FACILITY MANAGER Assisting Tech: Yanira Bryson RRT Spirometry w/BD: 1 DLCO: 1 LV - Box: 1 6 MW: 1 documented in this encounter [facility] 09-22-2021 Miscellaneo us Notes Formatting of this note might be differe nt from the original. Spoke with provider through secure chat-due to triage, worsening symptoms, and time of day sent patient to ED Patient stated that will head to [facility] shortly to be evaluated. Thank you, Kari Patient called back into office. Triaged for PE: Episodes of SOB along with the feeling you can't catch your breath: Yes Episodes of sweating and tachycardia: has these episodes intermittently over the past few months Have the above episodes increased or changed in severity: Yes they have become worse recently, stated that had upper respiratory Infection beginning of this month and attributed this to worsening symptoms Chest Pain: Yes When did the pain start:since COVID Location of pain: left upper sternum What type of pain (sharp, stabbing, dull, ect): pinching/squeezing feeling Duration (continuous/interment): intermittent Triaged for DVT: Swelling in lower extremities: Yes Bilateral:Yes, right tends to be more swollen Does it go away at night:Yes Does elevation help:Yes Change how shoes/clothes fit:Yes Any discoloration of extremities:No Areas that are warm, sore or painful to touch: No New or chronic: had swelling prior to COVID, went away during COVID and now back Lucrecia's Test: negative Also went over cardiolipin being elevated and will recheck after follow up . Thank you, Kari Tried home.. left message to call office. Please triage for PE/DVT due to elevated D dimer level. Please also inform her that her cardiolipin is in the intermediate range. We will recheck this after our follow up visit to show downward trend. Landen Clark APRN.MACY documented in this encounter [facility] 09-21-2021 History of Present illness Narrative Formatting of this note is different fro m the original. Images from the original note were not included. Rheumatology Outpatient Clinic Date of Service: 09/21/2021 Patient: Leana Tran Medical Record: [id number] Primary Care Physician: Cas Dowell MD Referring Provider: SELF Last Rheumatology visit: None at [facility] Chief complaint: Consult (Patient states she was at [facility] on 09/19/21, seen Landen Clark APRN. She states her lymph nodes were swollen at that visit. Patient states had COVID 10/2020. She states her bones feel like someone is scraping them. /Patient states she will pours out sweat or is freezing symptoms started in May/June and getting a lot worse now. ) Self referral requested for an opinion regarding widespread body pain. My final recommendations will be communicated back to her PCP. History of Present Illness Leana Tran is a 35 year old female with medical history of GERD, Hypothyroidism, Asthma, Migraine, IBS, KATELIN on CPAP on and off, Depression, bleeding disorder( unknown cause), peptic ulcer disease treated in 2011, recurrent upper respiratory infections presents on 09/21/2021 for an in-person visit for evaluation of Consult (Patient states she was at [facility] on 09/19/21, seen Landen Clark APRN. She states her lymph nodes were swollen at that visit. Patient states had COVID 10/2020. She states her bones feel like someone is scraping them. /Patient states she will pours out sweat or is freezing symptoms started in and getting a lot worse now. ). HISTORY OF PRESENT ILLNESS She reports doing well until 10/2020 when she had covid infection and reports multiple symptoms going on since then. She reports hot flashes and sweating at night. She also reports persistent cough, chest pain and sob since covid 19 which is getting worse. Patient reports pain over arms, forearms, legs, shoulders since 05/2020, which is gradually getting worse Pain is worst at night, continuous throughout the day, worse with acitivity No joint stiffness Reports whole hand swelling sometimes but without pain, she thinks they are swollen today. Also reports leg swelling with pitting. Has short term memory problem and extreme fatigue. She denies any oral ulcers, malar rash, discoid rash. She Tylenol 1000mg bid that helps to some extent, cant take NSAID due to allergy Has tried PT that does not help LN Hot flashes LINH neg 02/2021 Stomach sweeling Denies history of inflammatory eye disease, inflammatory bowel disease, psoriasis, dysentery, chlamydia, gonorrhea or other STDs, history of kidney disease/biopsy, nephrolithiasis, tuberculosis, miscarriages, blood clots, malignancy, pleural/pericardial effusion, CHF, CAD, CVA. Patient-Entered Data PAIN EVALUATION 09/21/2021 1526 Pain Level: 6 Pain Location: -- forearms, lower legs, and abd Description: -- scraping pain, Duration Units: Months Frequency: Continuous PROMIS Assessments PROMIS Assessments 05/19/2021 08/11/2021 09/14/2021 Physical Health Percentile 4 % 7 % - Mental Health Percentile 5 % 5 % - Pain Score 3 3 - Pain Interference Percentile - - 4 % Fatigue Percentile - 10 % 4 % Physical Function Percentile - 12 % 12 % RAPID 3 [place] Activities of Daily Living 09/14/2021 11:36 AM Dress self? Without ANY difficulty Get in and out of bed? With SOME difficulty Walk outdoors? With SOME difficulty Wash and dry body? Without ANY difficulty Get in and out of car? With SOME difficulty RAPID 3 Disease Activity Weighed Score Levels: 0 - 1: Near Remission 1.3 - 2.0: Low Severity 2.3 - 4.0: Moderate Severity 4.3 - 10.0: High Severity RAPID-3 Weighed Score 09/14/2021 RAPID 3 Weighed Score 5.28 (High Severity (HS)) Review of Systems REVIEW OF SYSTEMS: Joint pain: Denies, has only bone pain Joint swelling: Denies Joint stiffness: Denies Back/neck pain: Whole back, worse with activities Enthesopathic pain: Denies Fever: Has hot flashes but never checked temp Change in weight: Gaining wt Lymphadenopathy: Left axilla and right postauricular Mucosal ulcers: Denies Skin rash: Denies Photosensitive rash: Denies Alopecia: yes Chest Pain: Yes since covid Dyspnea: Yes, since covid, getting worse Cough : Denies Difficulty swallowing: Solids sometimes Nausea/vomiting: Nausea sometimes Heartburn: Denies Abdominal Pain: yes Diarrhea/constipation :alternating diarrhea and constipation form IBS Blood in stool : Bright red on wiping Dysuria/hematuria: Denies Muscle pain: yes Muscle weakness: Denies Numbness: Bilateral hands and feet on and off Headache: From migraine Seizures: Denies Raynaud's: Denies Sicca: Dry eyes Currently menstruating: Hysterectomy in 2019 for menorrhagia Past Medical History 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 Pseudotumor cerebri PTSD (post-traumatic stress disorder) Past Surgical History PAST SURGICAL HISTORY Procedure Laterality Date ABDOMINAL SURGERY HX 2009 exploration APPENDECTOMY 2008 DELIVERY ONLY HYSTERECTOMY NOSE SURGERY HX 2011 REMOVAL GALLBLADDER TUBAL LIGATION HX Family History The patient denies family history of SLE, RA, Sarcoidosis, Scleroderma, IBD or Psoriasis. FAMILY HISTORY Problem Relation Age of Onset Diabetes Mother uncontrolled Hypertension Mother Heart Attack Mother First MS at age 51 Cardiomyopathy Mother at age 52 Ischemic Heart Disease Mother Hypertension Father Diabetes Father Heart disease Father at age 57 Hypertension Sister Diabetes Sister Heart Son Being evaluated for HOCM (Dad has) Heart Son Being evaluated for HOCM (Dad has) other (Syncope) Son Neurocardiogenic Syncope Heart Son Being evaluated for HOCM (Dad has) Asthma Son No Ocular Disease Other Social History Social History Tobacco Use Smoking status: Never Smokeless tobacco: Never Vaping Use Vaping Use: Never used Substance Use Topics Alcohol use: Not Currently Drug use: Not Currently Current Medications Current Outpatient Medications on File Prior to Visit Medication Sig galcanezumab-gnlm (EMGALITY SYRINGE) 120 mg/mL syringe Inject 2 mL subcutaneously once every month. Inject two pens the first month as a loading dose. Do not shake. galcanezumab-gnlm (EMGALITY SYRINGE) 120 mg/mL syringe Inject 1 mL subcutaneously once every month. Do not shake. famotidine (PEPCID) 40 mg tablet Take 40 mg by mouth as needed. cetirizine (ZYRTEC) 10 mg tablet Take 10 mg by mouth as needed. diphenhydrAMINE (BENADRYL) 25 mg tablet Take 50 mg by mouth every 6 hours as needed. LORazepam (ATIVAN) 0.5 mg Take 0.5 mg by mouth twice daily as needed. fluticasone (FLONASE) 50 mcg/actuation nasal spray Use 1 Ringgold in each nostril twice daily. zonisamide (ZONEGRAN) 100 mg capsule Take 1 capsule by mouth once daily. rimegepant (NURTEC ODT) 75 mg disintegrating tablet Take 1 tablet by mouth once daily as needed. No more than 1 dose in 24 hours. prazosin (MINIPRESS) 5 mg cap Take 5 mg by mouth daily at bedtime. onabotulinum toxin type A (BOTOX) 100 unit solr by INJECTION(UNSPECIFIED PARENTERAL ROUTES) route every 3 months. mecobalamin, vitamin B12, 1,000 mcg ODT once daily. VITAMIN D-3 125 mcg (5,000 unit) tab Take 5,000 Units by mouth once daily. SITagliptin (JANUVIA) 100 mg tablet Take 100 mg by mouth as needed. EPINEPHrine 0.1 mg/0.1 mL AutoInjector as needed. budesonide-formoterol (SYMBICORT) 160-4.5 mcg/actuation inhaler Inhale 2 Puffs as instructed as needed. lamoTRIgine (LAMICTAL) 150 mg tablet Take 150 mg by mouth daily at bedtime. sertraline (ZOLOFT) 100 mg tablet Take 200 mg by mouth daily at bedtime. levothyroxine (SYNTHROID) 112 mcg tablet Take 112 mcg by mouth daily before breakfast. Takes 1.5 tablets on Wednesdays ALBUTEROL INHALATION Inhale as instructed as needed. montelukast (SINGULAIR) 10 mg tablet Take 10 mg by mouth once daily. Current Facility-Administered Medications on File Prior to Visit Medication perflutren lipid microspheres 1.3 mL in NaCl (PF) 0.9% 10 mL injection (DEFINITY) sodium chloride 0.9 % (flush) 10 mL (BD POSIFLUSH) Labs CBC Latest Ref Rng & Units 06/14/2021 06/27/2021 07/06/2021 WBC 3.70 - 11.00 k/uL - 6.89 6.53 HEMOGLOBIN 11.5 - 15.5 g/dL - 14.9 14.5 HEMATOCRIT 36.0 - 46.0 % 46.3(H) 42.8 42.8 PLATELETS 150 - 400 k/uL 277 251 241 ABS NEUT (ANC) 1.45 - 7.50 k/uL - 4.92 4.57 ABS LYMPH 1.00 - 4.00 k/uL - 1.45 1.36 CMP Latest Ref Rng & Units 05/24/2021 06/27/2021 SODIUM 136 - 144 mmol/L 138 138 POTASSIUM 3.7 - 5.1 mmol/L 3.8 4.1 CHLORIDE 97 - 105 mmol/L 101 103 CO2 22 - 30 mmol/L 25 23 GLUCOSE 74 - 99 mg/dL 87 102(H) BUN 7 - 21 mg/dL 9 9 CREATININE 0.58 - 0.96 mg/dL 0.90 0.86 CALCIUM, TOTAL 8.5 - 10.2 mg/dL 9.7 10.0 AST 13 - 35 U/L - 20 ALT 7 - 38 U/L - 36 ALKALINE PHOSPHATASE 34 - 123 U/L - 73 C3, C4 Latest Ref Rng & Units 07/25/2021 C3 86 - 166 mg/dL 165 C4 13 - 46 mg/dL 32 CK Latest Ref Rng & Units 06/27/2021 07/01/2021 CK 42 - 196 U/L 54 51 Antibodies Latest Ref Rng & Units 06/14/2021 PT SEC 9.7 - 13.0 sec 11.0 PT INR 0.9 - 1.3 1.0 PTT 23.0 - 32.4 sec 32.7(H) APTT SCREEN 24.0 - 35.1 seconds 34.6 THROMBIN TIME <18.6 seconds <16.8 Imaging Last XR Hand/Finger - Impression Only No resulted procedures found. Last MRI Hand - Impression Only No resulted procedures found. Last XR Chest - Impression Only No resulted procedures found. Last XR Cervical Spine - Impression Only No resulted procedures found. Health Maintenance Current Immunizations Reviewed on 09/19/2021 Name Date INFLUENZA 11/20/2019 , 11/06/2019 , 10/27/2019 Physical Exam VITAL SIGNS: BP 131/72 Pulse 72 Temp (Src) 97.5 (Temporal) Ht 5' 3 (1.60m) Wt 221 lb 12.8 oz (100.6kg) SpO2 97% LMP 2015 BMI 39.30 kg/(m^2). GENERAL APPEARANCE: obese female, Well groomed. In no distress. SKIN: No rash, thickening, nodules, calcifications, discoloration. EYES: PERRL, EOMI HENT: Normal external examination of the ears and nose, lips, oropharynx and tongue. No oropharyngeal lesions, exudate, or sores. NECK: No mass or asymmetry, soft tissue mass which is tender to touch over left axilla, unsure if it is lymph node RESPIRATORY: Normal respiratory effort. Clear to auscultation, no wheeze. CARDIOVASCULAR: regular, normal rate, normal heart sounds, no murmur or rub ABDOMEN: BS normal. No bruits, No tenderness, mass, or hepatosplenomegaly. NEUROLOGIC: Alert and oriented x 3. Sensory exam normal. Motor exam: Normal 5+/5+ muscle strength. Normal bulk and tone. MUSCULOSKELETAL EXAMINATION: Soft tissue tender points: multiple tender points over forearm, shoulder blades, cervical paraspinal areas Upper extremities/lower extremity- Full ROM in all directions, No joint swelling or effusion. Impression Diagnoses: (M89.8X9) Bone pain (primary encounter diagnosis) (R53.81, R53.83) Malaise and fatigue (R59.1) Lymphadenopathy Multiple soft tissue tender spots: Fatigue Lymphadenopathy Plan Orders this visit: Office Visit on 09/21/21 PHOSPHORUS INORGANIC UBRELVY 100 mg tablet baclofen (LIORESAL) 10 mg tablet rOPINIRole (REQUIP) 0.25 mg tablet 1. Multiple soft tissue tender spots/Fatigue, suspect chronic pain syndrome Patient reports bone pain over bilateral forearm and legs She has multiple soft tissue tender spots over jay forearm, shoulder blades, cervical paraspinal areas Also has fatigue, short term memory loss She denies pain over joint pain and has no synovitis on exam thus she does not appear to have an autoimmune/inflammatory arthropathy including RA, SpA, reactive arthritis. I would not pursue further work up for this. Since her LINH is negative ( reviewed in care everywhere done in 02/26) , no systemic signs and symptoms of SLE, no cytopenia in her labs including last one in 05/2021 it is unlikely that she has SLE, will follow repeat CBC, CMP, C3, C4 ordered at [facility]. To evaluate for causes that could contribute to her pain, I will follow CBC with diff, comprehensive metabolic panel,TSH, 25-hydroxy vitamin D, vitamin B12 levels, ordered at [facility]. Additionally, because sleep apnea can cause or worsen pain, recommendthat to use CPAP daily. I discussed regarding nature of chronic pain Discussed that this is not an inflammatory rheumatologic disease. It is a disorder that causes widespread muscle pain and tenderness, typically is associated with fatigue and sleep disturbances. Discussed recommended management including regular graded aerobic exercise, improving sleep hygiene and quality, continuing with healthy diet, Vit D supplementation, Physical therapy and aquatic pool therapy. There are some reports on benefits from chriopractic and acupuncture procedures, Yoga, aletha chi, therapeutic massage, and other body-based therapies to relieve muscle spasms and stiffness. Medication, while important, are not first choice and not indicated for all patients, and not the only treatment. Patient education, exercise, self- management skills and alternative therapies are recommended. Certain patient may benefit from Duloxetine, gabapentin or lyrica. I have low suspicion for autoimmune disease/rheumatologic disease and would recommend PCP to manage her chronic pain. In certain cases, a referral to a vision specialist may be required, in patients who fail traditional management approach as prescribed by primary care physician and as listed above. 2. Lymphadenopathy Patient awaiting US to further evaluate the mass Defer to PCP 3. Health care maintenance/Malignancy screening Defer to PCP Return in about 3 weeks (around 10/12/2021) for virtual visit for follow up test results. I spent a total of 68 minutes on the date of the service which included preparing to see the patient, [id number] patient care, completing clinical documentation, obtaining and/or reviewing separately obtained history, performing a medically appropriate examination, counseling and educating the patient/family/caregiver, and ordering medications, tests, or procedures. Medical Decision Making: Problems: High: Chronic illness with severe change Data: Unique test result(s) reviewed: 3+ Unique test(s) ordered: 1 Independent interpretation of test from other physician/QHCP Medical Decision Making Level: 5 - High Ruth Villaseñor MD Rheumatology Date: September 21, 2021 Time: 5:08 PM documented in this encounter [facility] 09-19-2021 Jan zimmerman Notes Formatting of this note might be differe nt from the original. Please help schedule fu visit in 4-6 weeks and testing please. Landen Clark APRN.CNP documented in this encounter [facility] 09-19-2021 Instruction s Landen Clark APRN.CNP - 09/19/2021 3:10 PM EDT Welcome to [facility]! The 'COV' represents SARS-CoV-2, also known as COVID-19. Our clinic's mission is to assess and guide individuals who are experiencing long-term effects of COVID-19 to state of the art care paths tailored to fit each person. You just had your initial visit with the [facility]! Next, you will be undergoing additional tests to further assess your current symptoms. Once you have these tests completed, you will have another visit to review these results. We will then direct you down the appropriate care path with a specialist for further treatment based on those results and your current symptoms. - The [facility] Team documented in this encounter [facility] 09-19-2021 History of Present illness Narrative Formatting of this note is different fro m the original. Images from the original note were not included. COVID [facility] Initial Evaluation Leana Tran presents to [facility] at the request of Sai Perez MD for evaluation of prolonged, > 28 days, symptoms attributed to COVID-19 infection. They have requested this consultation via eConsult and will be communicated to via the EMR or [place] Post Office Correspondence. HPI: Leana Tran is a 35 year old female with primary symptoms as below Positive COVID-19 Test: yes Date of Positive Test: 10/27/2020 Description of their course of COVID-19 illness 1. Symptoms began on 10/24/20 2. Hospitalization? Yes following 4-5 attempts to get admitted 3. Was the patient on oxygen? Yes, 1.5-3Lnc 4. Was patient discharged on oxygen? No 5. Was there an ICU stay? Yes 6. Was the patient intubated? No 7. Were there any COVID-19 medications given? Yes, Dexamethasone and antibiotics unsure which 8. Were there significant complications from the patients COVID-19 Illness? Yes, bradycardia 9. Has the patient received the COVID Vaccine? NO COVID-19 Symptom Review Shortness of Breath or Dyspnea on Exertion Recurred persisted Cough Recurred persisted Chest discomfort/chest pain Recurred persisted Palpitations Recurred persisted Exertional intolerance Recurred persisted Fatigue Recurred persists Dizziness Recurred persists Syncope or Near syncope Recurred persists Fever Recurred persists Joint pain/Body aches Recurred persists Altered taste/smell Recurred persisted Lack of concentration/brain fog Recurred persists Memory deficits Never Diarrhea or nausea Present prior to COVID-19 infection and worsened Headaches Present prior to COVID-19 infection and worsened Difficulty sleeping Recurred persists HF Symptoms - Orthopnea/Edema Recurred persists Erectile Dysfunction na Changes in mood Recurred persists Most significant symptoms: Shortness of Breath-she becomes sob when doing strenuous activity like doing laundry or going up one flight of stairs. She states that it feels like she is having her chest squeezed. She states that it feels like she is not able to take a deep breath. She is able to walk around the grocery store, but will need a few breaks. She feels that she has to elevate the head of her bed to stop from becoming sob. She is sob when raising her arms over her. She has wheeze that is worst at night. She has Symbicort that has been using more regularly, She is unsure of impact. Cough -She has cough that is everyday. It is worse when overly exerted or at night. This is always dry. She denies daily pnd. She has gerd and is taking Pepcid bid, but this was first prescribed for her allergies. Chest discomfort/chest pain -She states that this is intermittent. She describes this as a feeling of pinching and squeezing in one location directly left of the sternum. This primarily occurs when she over exerts herself. She states that it will take 30min to 3 hours. This may occur when her blood pressure is either too high or too low . Palpitations -She has episodes where she feels her heart is irregular. She will have racing heart beats followed 1-2 slow beats. These patterns will change randomly. She states that in the first week of june, she woke up with a bad chest pain. Following this, her heart rate has been in a more normal range. It is not in the 30s any more Exertional intolerance -She is not able to do the same activities that she previously was not able to do. She is trying to get a job with shorter shifts. She will have to take regular breaks following activity. She states that if she does physical therapy, and then goes grocery shopping, her blood pressure. Fatigue -She has increased fatigue, this had improved once she started prazosin. Recently she had to take a course of steroids, and this made her fatigue worse. She does wears her cpap 60% of days. She states that it is primarily days that she does not have headaches. Dizziness -This has improved some, but still occurs every day. She states that this occurs primarily with change of position. This will usually feel like spinning or hazy/cloud like Syncope or Near syncope-She has not lost consciousness, but states that she has fallen and does not remember how. She does not think she blacked out , but is not able to figure out how she got to the ground. This has happened a few times since her infection. Temperature-She has temperature variations that occur daily. She states that she is always hot or cold. She will wake up drenched in sweat. She will take a shower in the morning to clear off. She She states that she started having long bone pain at the same time. She states that it feels like there is something scraping through her bones. This is worse at night. Joint pain/Body aches -She states that for the last few months, she has long bone pain. She states that nothing will make this feel better except for when her dog sleeps on her legs. She feels that the warmth has helped it feel better some Altered taste/smell -She feels that her taste and smell are off now. She states that she is not able to tell if milk is spoiled. She does smell burning plastic or things that are on fire regularly. Lack of concentration/brain fog -She has trouble with word finding, word selection. She recently completed speech therapy for this. This has improved Diarrhea or nausea -She has ibs. She feels that she is having increased diarrhea. She has increased constipation. She does not follow with gi Headaches -She has history of headache. She follows with someone for headache. She was recently started on emgality. Difficulty sleeping -see fatigue HF Symptoms - Orthopnea/Edema-She states that by the night time, she will have increased swelling in her legs. This will be the entire leg. These will go down by morning. Erectile Dysfunction -NA Changes in mood -She has mood that is all over the place. She does not have strong support at home, and feels that many people do not listen to her when she discusses these symptoms. She is an [employer] group. Pt has new bump in left axillary region. This does not hurt, but she feels is uncomfortable. It is not warm, no drainage. Noted. Recent/previously completed testing: EKG 05/24/21 ECHO 08/17/21 PFT Tilt 06/14 Established with the following specialists: Neuromuscular, cardiology, headache,physcial therapy, speech, pulmonary(katelin), Speech path,Allergy,endo, hematology,ent, integrative. Rheum Review of Systems Constitutional: Positive for activity change and fatigue. Negative for fever. Night sweats HENT: Negative for congestion, sinus pressure, sinus pain, sore throat and trouble swallowing. Respiratory: Positive for cough, chest tightness, shortness of breath and wheezing. Cardiovascular: Positive for palpitations and leg swelling. Negative for chest pain. Gastrointestinal: Negative for abdominal pain, diarrhea, nausea and vomiting. Musculoskeletal: Positive for arthralgias and myalgias. Skin: Left axillary lump Neurological: Positive for dizziness, syncope (near), light-headedness and headaches. Psychiatric/Behavioral: Positive for dysphoric mood and sleep disturbance. Negative for confusion and decreased concentration. The patient is nervous/anxious. 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 Inject two pens the first month as a loading dose. Do not shake. galcanezumab-gnlm (EMGALITY SYRINGE) 120 mg/mL syringe Inject 1 mL subcutaneously once every month. Do not shake. famotidine (PEPCID) 40 mg tablet Take 40 mg by mouth as needed. cetirizine (ZYRTEC) 10 mg tablet Take 10 mg by mouth as needed. diphenhydrAMINE (BENADRYL) 25 mg tablet Take 50 mg by mouth every 6 hours as needed. LORazepam (ATIVAN) 0.5 mg Take 0.5 mg by mouth twice daily as needed. fluticasone (FLONASE) 50 mcg/actuation nasal spray Use 1 [place] in each nostril twice daily. zonisamide (ZONEGRAN) 100 mg capsule Take 1 capsule by mouth once daily. rimegepant (NURTEC ODT) 75 mg disintegrating tablet Take 1 tablet by mouth once daily as needed. No more than 1 dose in 24 hours. prazosin (MINIPRESS) 5 mg cap Take 5 mg by mouth daily at bedtime. onabotulinum toxin type A (BOTOX) 100 unit solr by INJECTION(UNSPECIFIED PARENTERAL ROUTES) route every 3 months. mecobalamin, vitamin B12, 1,000 mcg ODT once daily. VITAMIN D-3 125 mcg (5,000 unit) tab Take 5,000 Units by mouth once daily. SITagliptin (JANUVIA) 100 mg tablet Take 100 mg by mouth as needed. EPINEPHrine 0.1 mg/0.1 mL AutoInjector as needed. budesonide-formoterol (SYMBICORT) 160-4.5 mcg/actuation inhaler Inhale 2 Puffs as instructed as needed. lamoTRIgine (LAMICTAL) 150 mg tablet Take 150 mg by mouth daily at bedtime. sertraline (ZOLOFT) 100 mg tablet Take 200 mg by mouth daily at bedtime. levothyroxine (SYNTHROID) 112 mcg tablet Take 112 mcg by mouth daily before breakfast. Takes 1.5 tablets on Wednesdays ALBUTEROL INHALATION Inhale as instructed as needed. montelukast (SINGULAIR) 10 mg tablet Take 10 mg by mouth once daily. Current Facility-Administered Medications on File Prior to Visit Medication perflutren lipid microspheres 1.3 mL in NaCl (PF) 0.9% 10 mL injection (DEFINITY) sodium chloride 0.9 % (flush) 10 mL (BD POSIFLUSH) Objective Findings: Vitals: BP 128/53 Pulse 70 Temp 36.8 C (98.3 F) (Temporal) Resp 18 Wt 99.8 kg (220 lb) LMP 2015 SpO2 98% BMI 37.76 kg/m Initial Screening Questionaires review: PROMIS/NeuroQoL Score Percentiles Physical Health 09/14/2021 08/11/2021 Fatigue Percentile 4 10 PROMIS Global Health Scale 08/11/2021 05/19/2021 02/25/2021 Physical Health Percentile 7 4 10 Mental Health Percentile 5 5 2 Percentiles provide an indication of how a patient s score ranks in relation to the [place] general population. > 31st percentile is within normal limits or better * < 31st percentile is at least SD worse than population, which may be clinically relevant < 16th percentile is at least 1 SD worse than population and warrants attention PHQ-9 09/14/2021 09/09/2021 07/29/2021 PHQ-2 Score 2 1 2 PHQ-9 Score 14 10 15 FANNY - 2/7 SCORES 09/09/2021 08/22/2021 07/29/2021 FANNY-2 Score 4 1 3 FANNY-7 Score 11 8 7 Physical Examination: Physical Exam Vitals and nursing note reviewed. Constitutional: General: She is not in acute distress. Appearance: Normal appearance. She is normal weight. She is not ill-appearing. HENT: Head: Normocephalic. Nose: No congestion. Mouth/Throat: Eyes: General: Right eye: No discharge. Left eye: No discharge. Extraocular Movements: Extraocular movements intact. Conjunctiva/sclera: Conjunctivae normal. Right eye: Right conjunctiva is not injected. Left eye: Left conjunctiva is not injected. Pupils: Pupils are equal, round, and reactive to light. Neck: Trachea: Trachea normal. No tracheal deviation. Cardiovascular: Rate and Rhythm: Normal rate and regular rhythm. Chest Wall: PMI is not displaced. Pulses: Normal pulses. Heart sounds: Normal heart sounds. No murmur heard. No friction rub. No gallop. Pulmonary: Effort: Pulmonary effort is normal. No respiratory distress. Breath sounds: Normal breath sounds. No stridor. No wheezing or rhonchi. Chest: Breasts: Right: No tenderness. Abdominal: General: Bowel sounds are normal. Tenderness: There is no abdominal tenderness. Musculoskeletal: General: No swelling or tenderness. Normal range of motion. Cervical back: Normal range of motion and neck supple. No rigidity. Right lower leg: No edema. Left lower leg: No edema. Lymphadenopathy: Head: Right side of head: No submental or submandibular adenopathy. Left side of head: No submental or submandibular adenopathy. Cervical: No cervical adenopathy. Right cervical: No superficial, deep or posterior cervical adenopathy. Left cervical: No superficial, deep or posterior cervical adenopathy. Upper Body: Right upper body: No supraclavicular adenopathy. Left upper body: Axillary adenopathy present. No supraclavicular adenopathy. Skin: General: Skin is warm. Coloration: Skin is not jaundiced or pale. Findings: No bruising. Neurological: General: No focal deficit present. Mental Status: She is alert and oriented to person, place, and time. Cranial Nerves: No cranial nerve deficit. Sensory: No sensory deficit. Motor: No weakness. Coordination: Romberg sign negative. Coordination normal. Gait: Gait and tandem walk normal. Psychiatric: Mood and Affect: Mood normal. Behavior: Behavior normal. Assessment and Plan: -The patient and I reviewed the below testing in detail. We discussed indications for testing and the benefits of results in directing the plan of care. - Will await test results and discuss at our follow up visit. - The patient will then follow up with consulted specialists and their PCP Patient will be sent questionnaires every 3 months for 1 year to monitor their progress. Once a questionnaire is completed, a member of our team with reach out to them to review. -Pt will continue with established roster of specialists. We will wait for results to consider additional testing. -Pt will contact pcp regarding this left axillary mass. We discussed that I would order the ultrasound, but defer management to her pcp for continuity of care and for comprehensive follow up. She voiced understanding of this plan. 1. Post-acute sequelae of COVID-19 (PASC) - ICD9: 139.8, ICD10: U09.9 (primary diagnosis) - CBC - COMP METABOLIC PANEL - VITAMIN B12 BLOOD - VITAMIN D 25 HYDROXY - LUNG DIFFUSION CAPACITY (DLCO) - SIX MINUTE WALK - XR CHEST 2V FRONTAL/LAT - TRACE ELEMENTS/TPN - SED RATE WESTERGREN - C-REACTIVE PROTEIN (CRP) - NT PRO BNP - D-DIMER - SPIROMETRY - BASELINE AND POST DILATOR - LUNG VOLUMES - CARDIOLIPIN IGM ABS - OMEGACHECK - TMAO - US CHEST WALL/SOFT TISSUE 2. History of COVID-19 - ICD9: V12.09, ICD10: Z86.16 3. SOB (shortness of breath) - ICD9: 786.05, ICD10: R06.02 4. Chronic cough - ICD9: 786.2, ICD10: R05.3 5. Chest discomfort - ICD9: 786.59, ICD10: R07.89 6. Palpitation - ICD9: 785.1, ICD10: R00.2 7. CAVAANUGH (dyspnea on exertion) - ICD9: 786.09, ICD10: R06.09 8. Dizziness - ICD9: 780.4, ICD10: R42 9. Near syncope - ICD9: 780.2, ICD10: R55 10. Night sweats - ICD9: 780.8, ICD10: R61 11. Orthopnea - ICD9: 786.02, ICD10: R06.01 12. Anxiety - ICD9: 300.00, ICD10: F41.9 13. Myalgia - ICD9: 729.1, ICD10: M79.10 14. Pain in joint, multiple sites - ICD9: 719.49, ICD10: M25.50 15. Mass of left axilla - ICD9: 782.2, ICD10: R22.32 - US CHEST WALL/SOFT TISSUE Consults initiated today: Will hold consults at this time. I spent a total of 65 minutes on the date of the service which included preparing to see the patient, [id number] patient care, completing clinical documentation, obtaining and/or reviewing separately obtained history, performing a medically appropriate examination, counseling and educating the patient/family/caregiver, ordering medications, tests, or procedures, communicating with other HCPs (not separately reported), independently interpreting results (not separately reported), communicating results to the patient/family/caregiver, and care coordination (not separately reported). Landen Clark APRN.CNP September 19, 2021 2:07 PM documented in this encounter [facility] 09-16-2021 History of Present illness Narrative Formatting of this note is different fro m the original. The [facility] Psychology Progress Note Billing codes: Keisha PSYCHOLOGY: FOLLOW-UP APPOINTMENT PROGRESS NOTE- Virtual Visit Due to the federal emergency declaration and the need for ongoing mental health services, the following visit was completed virtually and informed consent obtained orally to reduce the risk of COVID-19 exposure. Oral consent to services related to virtual visits was obtained after information was sent via Revision3 or read to patient if VoodooVoxhart not available. Leana Tran 09/16/2021 [id number] PROVIDER: Dolores Valdes PSYD CPT Code: 2842436 Virtual PSYTX PT &/FAMILY 45 MINS Time spent doing therapy with patient: 8:59 AM - 9:39 AM Parties Present: Patient Interventions: Cognitive Behavioral Stress Management Relaxation training MENTAL STATUS: Mood: anxious Affect: mood-congruent Thoughts/Associations: goal directed Suicidal/Homicidal Ideation: None expressed or evidenced MEDICATIONS: Per medical record: Current Outpatient Medications Medication Sig galcanezumab-gnlm (EMGALITY SYRINGE) 120 mg/mL syringe Inject 2 mL subcutaneously once every month. Inject two pens the first month as a loading dose. Do not shake. galcanezumab-gnlm (EMGALITY SYRINGE) 120 mg/mL syringe Inject 1 mL subcutaneously once every month. Do not shake. famotidine (PEPCID) 40 mg tablet Take 40 mg by mouth as needed. cetirizine (ZYRTEC) 10 mg tablet Take 10 mg by mouth as needed. diphenhydrAMINE (BENADRYL) 25 mg tablet Take 50 mg by mouth every 6 hours as needed. LORazepam (ATIVAN) 0.5 mg Take 0.5 mg by mouth twice daily as needed. fluticasone (FLONASE) 50 mcg/actuation nasal spray Use 1 Ringgold in each nostril twice daily. zonisamide (ZONEGRAN) 100 mg capsule Take 1 capsule by mouth once daily. rimegepant (NURTEC ODT) 75 mg disintegrating tablet Take 1 tablet by mouth once daily as needed. No more than 1 dose in 24 hours. prazosin (MINIPRESS) 5 mg cap Take 5 mg by mouth daily at bedtime. onabotulinum toxin type A (BOTOX) 100 unit solr by INJECTION(UNSPECIFIED PARENTERAL ROUTES) route every 3 months. mecobalamin, vitamin B12, 1,000 mcg ODT once daily. VITAMIN D-3 125 mcg (5,000 unit) tab Take 5,000 Units by mouth once daily. SITagliptin (JANUVIA) 100 mg tablet Take 100 mg by mouth as needed. EPINEPHrine 0.1 mg/0.1 mL AutoInjector as needed. budesonide-formoterol (SYMBICORT) 160-4.5 mcg/actuation inhaler Inhale 2 Puffs as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 Inject 1 mL subcutaneously once every month. Do not shake. famotidine (PEPCID) 40 mg tablet Take 40 mg by mouth as needed. cetirizine (ZYRTEC) 10 mg tablet Take 10 mg by mouth as needed. diphenhydrAMINE (BENADRYL) 25 mg tablet Take 50 mg by mouth every 6 hours as needed. LORazepam (ATIVAN) 0.5 mg Take 0.5 mg by mouth twice daily as needed. fluticasone (FLONASE) 50 mcg/actuation nasal spray Use 1 [place] in each nostril twice daily. zonisamide (ZONEGRAN) 100 mg capsule Take 1 capsule by mouth once daily. rimegepant (NURTEC ODT) 75 mg disintegrating tablet Take 1 tablet by mouth once daily as needed. No more than 1 dose in 24 hours. prazosin (MINIPRESS) 5 mg cap Take 5 mg by mouth daily at bedtime. onabotulinum toxin type A (BOTOX) 100 unit solr by INJECTION(UNSPECIFIED PARENTERAL ROUTES) route every 3 months. mecobalamin, vitamin B12, 1,000 mcg ODT once daily. VITAMIN D-3 125 mcg (5,000 unit) tab Take 5,000 Units by mouth once daily. SITagliptin (JANUVIA) 100 mg tablet Take 100 mg by mouth as needed. EPINEPHrine 0.1 mg/0.1 mL AutoInjector as needed. budesonide-formoterol (SYMBICORT) 160-4.5 mcg/actuation inhaler Inhale 2 Puffs as instructed as needed. lamoTRIgine (LAMICTAL) 150 mg tablet Take 150 mg by mouth daily at bedtime. sertraline (ZOLOFT) 100 mg tablet Take 200 mg by mouth daily at bedtime. levothyroxine (SYNTHROID) 112 mcg tablet Take 112 mcg by mouth daily before breakfast. Takes 1.5 tablets on Wednesdays ALBUTEROL INHALATION Inhale as instructed as needed. montelukast (SINGULAIR) 10 mg tablet Take 10 mg by mouth once daily. Indication for ABPM: Suspected white coat hypertension Recommended Consensus Standards for 24 hr ambulatory blood pressure measurements* Successful readings 40 (49%) Average 24 hour Blood Pressure 114/59 mmHg ?125/75 mmHg * Average Daytime Blood Pressure 116/62 mmHg ?130/80 mmHg * Average Night-time (sleep) Blood Pressure 101/45 mmHg ?110/65 mmHg * Nocturnal Dipping Effect 13.4 % 10%-20% *2017 ACC/AHA Guideline for the Prevention, Detection, Evaluation, and Management of High Blood Pressure in Adults: A Report of the [place] [employer]/[place] [employer] Association Task Force on Clinical Practice Guidelines. Hypertension. 2018 Koffi;71(6):t76-a997. Epub 2017 Dec 18. The ABPM should be repeated if the following criteria are not met: 24 hr recording with ?70% of expected measurements, 20 valid awake measurements, 7 valid asleep measurements Final Impression: Only 49% readings available - based on available results Normal average blood pressures on 24 hour ambulatory blood pressure monitoring. Normal nocturnal dipping Patient event form was reviewed 2.22 pm - lightheaded, nausea - closest BP and HR - 2.18 pm - 121/64 and 89 2.40 pm - palpitations while driving - closest BP and HR - 2.42 pm - 92/51 and 75 A copy of this report will be sent to referring physician via EMR. A copy of the full report with raw data and all individual readings will be scanned into [employer], which can be reviewed under scanned documents. Mike Zayas MD documented in this encounter [facility] 08-17-2021 Miscellaneo us Notes Appeal letter written. Please fax to insurance. Bhargavi Saldana PA-C August 17, 2021 10:01 AM Images from the original note were not included. Ambulatory Pharmacy Prior Authorization Note Provider Intervention Required?: No- Pharmacy completed on your behalf. Drug: Emgality 120MG/ML syringes (migraine) Cover My Meds Appiah: [id number] Determination: Denied PA Denied because: Medical necessity not met Prior Authorization/Case #: [id number] Prior Authorization Expiration: n/a Time to PA Submission in CMM: 15 min Time to PA Determination in CMM: Same day Additional Information: Full letter scanned into chart for reference, please review letter for full details. Next Steps- Please notify the patient of Denial. Your office can submit appeal if you would like to pursue. If overturned, please feel free to send new eRx to [facility] at that time. No further action by [facility] for now and existing order to be profiled. Jenni Rocha RN [facility] P: , F: For questions relating to this submission, please contact [facility] [phone] [facility] received prescription(s) for Emgality 120MG/ML syringes (migraine) . Benefits investigation was conducted, indicating that a prior authorization is required. PA was initiated and pending review through [email or web address]. All pertinent clinical information was submitted to insurance. CMM Appiah: [id number] Ordering Provider: GIOVANNA Chi Alisha, RN [facility] P: , F: documented in this encounter [facility] 08-15-2021 History and physical note Ms. Tran is here today at the request of Rubens Tim, [address] [place] [address] for my opinion regarding a right groin bulge. My final recommendation will be communicated back to the requesting physician by way of shared medical record or letter. Pain is located in RLQ Pain is sharp/stabbing Pain severity is 5/10 Pain radiates across the abomen Pain is associated with mucousy loose stool Pain is worse with everything Pain is better with ice and Tylenol 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 Pseudotumor cerebri PTSD (post-traumatic stress disorder) PAST SURGICAL HISTORY Procedure Laterality Date ABDOMINAL SURGERY HX 2010 exploration APPENDECTOMY 2008 DELIVERY ONLY HYSTERECTOMY NOSE SURGERY HX 2011 REMOVAL GALLBLADDER TUBAL LIGATION HX Social History Tobacco Use Smoking status: Never Smoker Smokeless tobacco: Never Used Vaping Use Vaping Use: Never used Substance Use Topics Alcohol use: Not Currently Drug use: Not Currently FAMILY HISTORY Problem Relation Age of Onset Diabetes Mother uncontrolled Hypertension Mother Heart Attack Mother First MS at age 51 Cardiomyopathy Mother at age 52 Ischemic Heart Disease Mother Hypertension Father Diabetes Father Heart disease Father at age 57 Hypertension Sister Diabetes Sister Heart Son Being evaluated for HOCM (Dad has) Heart Son Being evaluated for HOCM (Dad has) other (Syncope) Son Neurocardiogenic Syncope Heart Son Being evaluated for HOCM (Dad has) Asthma Son No Ocular Disease Other REVIEW OF SYSTEMS GENERAL: No weight loss, malaise and fatigue HEENT: Negative for frequent or significant headaches, Negative for changes in hearing, vision or dizziness RESPIRATORY: Negative for cough, hemoptysis, wheezing or shortness of breath CARDIOVASCULAR: Negative for chest pain, leg swelling or palpitations. Hypotension + clotting GI: SEE HPI : No history of dysuria, hematuria, frequency or incontinence. SKIN: Negative for lesions, rash, and itching NEURO: No history of headaches, syncope, paralysis, seizures or tremors, + lightheaded PHYSICAL EXAMINATION Ht 162.6 cm (5' 4 ) Wt 98.8 kg (217 lb 14.4 oz) LMP 2015 BMI 37.40 kg/m General Appearance: Well appearing, alert, in no acute distress, well-hydrated, well nourished. Skin: Color, texture, turgor normal, no suspicious rashes or lesions Head: Normocephalic, no masses, lesions, tenderness or abnormalities Neck: Supple, no adenopathy; Lungs: Clear to auscultation. No wheezing, rhonchi, rales Heart: RRR without murmur, gallop, or rubs. No ectopy Abdomen: Soft, non-tender. Bowel sounds normal. Diastasis recti. Tenderness of right inguinal region without appreciable bulge in upright standing position with coughing but exam difficult given body habitus Extremities: No ankle edema. Lymph Nodes: No cervical lymphadenopathy and No supraclavicular lymphadenopathy Assessment RLQ pain Diastasis recti Plan: Discussed checking US to rule out a clinically occult right inguinal hernia. Discussed nature of diastasis recti. She appeared to understand and accepted at this time. Attending note: Patient seen by Josefa Fowler RN and myself. I personally examined the patient, all components above personally confirmed, note attended where appropriate. History and exam as noted above reviewed. Agree with plan as discussed above. Berlin Avila III, MD cc: Referring provider Rubens Tim, DO [address] [place] [address] documented in this encounter [facility] 08-12-2021 History of Present illness Narrative Episode Visit Count: 1 Therapist That Will Oversee The Plan Of Care: Pat Start of Care Date: 08/12/21 Onset Date: 12/07/20 Patient Identified by Name and Date of : Yes REHABILITATION AND SPORTS THERAPY PHYSICAL THERAPY EVALUATION PLAN OF CARE: Assessment: Leana Tran presents with chief complaint of variable right sided weakness, intermittent involuntary movements, pain (headaches, neck and low back pain) that 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 She presents with impairments in independence in exercise, strength , symptom management and activity pacing. PROMIS (Patient-Reported Outcomes Measurement Information System) scores were reviewed and all domains identified as a rehabilitation concern. Prognosis for therapy is Good due to: current objective clinical presentation;Prognosis may be limited due to multiple co- morbidities;limited tolerance to activity . Gilbert's sign present (increased right hamstring strength with left quad cocontraction suggesting functional origin of weakness. Pt may benefit from activity pacing and an external focus for rehabilitation. She will benefit from skilled therapy services to meet the goals established for this plan of care as noted below. She will seek care close to her home, and I am available for follow up as needed or to consult with her local therapists. Goals for Episode of Care: created on 08/12/21 through 08/12/21 Patient will demonstrate current home exercise program independently. Patient will demonstrate understanding of how to locate a specialized physical therapist closer to home. 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 external focus, activity pacing Patient demonstrates good understanding of plan of care and treatment. The above goals and plan of care were discussed and agreed upon by patient/family. SUBJECTIVE: Leana Tran is a 35 year old female seen today for Migraines, post covid oct 26. When she gets tired, she notes her blood pressure drops, she has abnormal movements, can't control her grasp. She has episodes of knees buckling. On a blood pressure monitor to try to track blood pressure drops. No warning for falls, abnormal movements. Has trouble sleeping. Has pain all the time. When her legs were jumping uncontrollably, she felt a wedge sensation in her back. 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) Recreation / Current Exercise: PT in [place]: strength training, traction, massage gun to neck, balance training Intake Information: Prescription present Previous Treatment: Physical Therapy Falls Interview: Two or more falls in the last year Falls Intervention: More thorough falls assessment to be performed Pain: Pain Pain Level: 6 Pain Location: Back;Neck;Head - Left;Head - Right Description: Aching;Throbbing Frequency: Continuous Post Treatment Pain Post Treatment Pain Level: No Change PROMIS Scales Higher is Better 02/25/2021 05/19/2021 08/11/2021 Phys Func - Score - - 38 (moderate dysfunction) Phys Func - Percentile - - 12 % Social Roles - Score - - 37 (moderate dysfunction) Social Role - Percentile - - 10 % GH Physical - Score 37.4 (Fair) 32.4 (Poor) 34.9 (Poor) GH Physical - Percentile 10 % 4 % 7 % GH Mental - Score 28.4 (Poor) 33.8 (Fair) 33.8 (Fair) GH Mental - Percentile 2 % 5 % 5 % Self-Eff Symptom - Score - - 35 (Low) Self-Eff Symptom - Percentile - - 7 % T-scores: mean of general population = 50. 5 points is clinically meaningfully difference Percentiles provide an indication of how the patient's score ranks in relation to the general population. Higher percentile rankings indicate better function/quality of life. 50th percentile is the average of the general population and indicates half of respondents had a worse score. Lower is Better 08/11/2021 Fatigue - Score 63 (moderate) Fatigue - Percentile 10 % T-scores: mean of general population = 50. 5 points is clinically meaningfully difference Percentiles provide an indication of how the patient's score ranks in relation to the general population. Higher percentile rankings indicate better function/quality of life. 50th percentile is the average of the general population and indicates half of respondents had a worse score. OBJECTIVE MEASURES WITH LEVEL OF FUNCTION: Posture / Alignment Posture: Forward head LE Strength R LE Strength: gilbert's sign present L LE Strength: 4+ with some giveway weakness R Knee Extension (L3): 4+/5 R Knee Flexion: 3+/5 R Ankle Dorsiflexion (L4): 4+/5 Mobility Sit To Stand: Independent Stand To Sit: Independent Gait Gait Observation: variable, with weaving and swaying at times, other times without significant deviation noted Functional Performance Test Results Timed Up and Go (sec): 12.2 sec Timed Up and Go Cognitive (sec): 15.6 sec Education: Education Learning Preferences: Demonstration;Explanation;Performance;Printed Materials Barriers: None Learning/educational needs: Home exercise program;Plan of Care Education Provided: Yes, see treatment interventions for education provided Education Provided To: Patient Education Mode/Type: Demonstration;Explanation/Discussion;Literature/Printed Materials Response to Education/Teach Back: States/Identifies;Requires Review/Additional Education TREATMENT: PT Treatment Interventions: Neuromuscular Re-Education Evaluation Neuromuscular Re-Education: 1: extensive education regarding neurvous system functioning, pain neuroscience, functional neurologic disorder 2: functional leg weakness handout given 3: extensive activity pacing discussion 4: -stop before symptoms exacerbate, rest, then begin again 5: avoid boom/bust cycle Skilled Intervention: Skilled judgment used to assess appropriate program for balance and coordination activity. Patient education as noted. Education provided on FND, PT role in treatment, diverted attention strategies, physiologic reasoning for FND, plan of care, goal setting, prognosis Patient education regarding need for consistent follow up with neurological PT using principles discussed in Paulie, 2014 article Physiotherapy for functional motor disorders: a consensus recommendation Educated on proper dosing, frequency, and rest breaks throughout the day Educated on progressive walking program for neuro protective benefits. Billing * Evaluation Moderate Complexity: 1 Unit Neuromuscular Re-Education Treatment Minutes: 33 Total Treatment Time Minutes (timed/untimed): 64 Daniela Stewart PT DPT Board Certified Neurologic Clinical Specialist documented in this encounter [facility] 08-12-2021 Instruction s Richard Ferrera MA - 08/12/2021 10:26 AM EDT AMBULATORY BLOOD PRESSURE MONITOR Performed automated office BP reading and results downloaded into [employer]. Average BP: 108/72 AOBP - Standardized BP Measurement BP #1: 109/72 Pulse #1: 87 beats/min BP #2 : 106/69 Pulse #2 : 76 beats/min BP #3 : 110/73 Pulse #3 : 76 beats/min Average BP: 108/72 Average Pulse: 79 beats/min BP cuff location: Left upper arm BP cuff size: large adult Was office BP more than 180/100 (yes/no) If yes, provider informed: name of provider NO Action taken: NONE Applied ambulatory blood pressure monitor. Test reading done, demonstrated to patient Explained to patient the event form and also explained that on the event form they must document blood pressure medications taken morning, noon, and night. Explained to patient that they must keep the 24-hour monitor dry, to be still when the cuff inflates (to help reduce errors), and to resume usual activity once cuff deflates. Patient instructed to remove monitor and stop procedure if there is significant cuff inflation discomfort leading to pain or bruising. Patient instructed to follow up with ordering provider about results Explained to patient to return monitor by mail via [employer] no later than: 08/13/21. Serial number: [id number] [employer] Tracking number [id number] Did the patient receive a blood pressure cuff? Yes Did the patient receive a blood pressure monitor? Yes Did the patient receive a belt? Yes Patient expressed understanding of all above. Patient signed financial release form and aware that they will be billed if the monitor is not returned by the specified date. All questions answered Richard Ferrera MA documented in this encounter [facility] 08-12-2021 History of Present illness Narrative AMBULATORY BLOOD PRESSURE MONITOR Performed automated office BP reading and results downloaded into [employer]. Average BP: 108/72 AOBP - Standardized BP Measurement BP #1: 109/72 Pulse #1: 87 beats/min BP #2 : 106/69 Pulse #2 : 76 beats/min BP #3 : 110/73 Pulse #3 : 76 beats/min Average BP: 108/72 Average Pulse: 79 beats/min BP cuff location: Left upper arm BP cuff size: large adult Was office BP more than 180/100 (yes/no) If yes, provider informed: name of provider NO Action taken: NONE Applied ambulatory blood pressure monitor. Test reading done, demonstrated to patient Explained to patient the event form and also explained that on the event form they must document blood pressure medications taken morning, noon, and night. Explained to patient that they must keep the 24-hour monitor dry, to be still when the cuff inflates (to help reduce errors), and to resume usual activity once cuff deflates. Patient instructed to remove monitor and stop procedure if there is significant cuff inflation discomfort leading to pain or bruising. Patient instructed to follow up with ordering provider about results Explained to patient to return monitor by mail via [employer] no later than: 08/13/21. Serial number: [id number] [employer] Tracking number [id number] Did the patient receive a blood pressure cuff? Yes Did the patient receive a blood pressure monitor? Yes Did the patient receive a belt? Yes Patient expressed understanding of all above. Patient signed financial release form and aware that they will be billed if the monitor is not returned by the specified date. All questions answered Richard Ferrera MA documented in this encounter [facility] 08-05-2021 Instruction s Bhargavi Saldana PA-C - 08/05/2021 9:34 AM EDT 1. Start emgality - the first month is a loading dose of 2 pens and then it is one pen a month thereafter [facility]: [phone] 2. I recommend you take nurtec as first line rescue rather than tylenol 3. Please follow up for botox or sooner if needed documented in this encounter [facility] 08-05-2021 History of Present illness Narrative Headache Center - Follow up Virtual Visit During this COVID-19 pandemic, patient's headache clinic evaluation was scheduled as a virtual visit using the following platform Zoom Leana Tran was identified by name and and consented to the video evaluation and its limitations. Based on this evaluation it may be necessary for them to schedule a follow up evaluation with me or other neurologists for formal physical examination and if necessary,other studies. Accompanied by: Self Primary Problem List: ACTIVE PROBLEM LIST Coagulopathy (Hcc) Arachnoid Cyst of Pituitary Gland Symptomatic Bradycardia Blood Pressure Instability Subjective Muscle Weakness Malaise and Fatigue Transient Diplopia Orthostatic Lightheadedness Screening for Endocrine Disorder Primary Hypothyroidism Moderate Persistent Asthma Without Complication Gastroesophageal Reflux Disease Allergic Rhinitis Allergic Reaction to Contrast Dye Drug Reaction Adverse Food Reaction Chief Complaint: Migraines Impression and Plan from last visit: 07/06/21 with me Botox #3 Interval Headache History: Leana Tran is a 35 year old year old female, with a history of chronic migraine, arachnoid cyst of pituitary gland, asthma, cholelithiasis, depression, GERD, hypothyroidism, IBS, KATELIN on CPAP, PTSD and pseudotumor cerebri following up today virtually for migraines. Since the last visit, the patient states that her headaches have not changed. She has now completed 3 rounds of Botox PREEMPT Protocol and she reports it helps to reduce the severity (from 7/10 to 4/10) but not the frequency. Tylenol is first line rescue (never effective) then will go to nurtec which is typically effective to reduce or resolve the pain depending on how early she takes it. Denies side effects with nurtec. Unsure if zonisamide is helpful - denies side effects. Headache 1 Onset: - Years - worse in the last year Location: right Quality/Description: sharp, burning and throbbing Associated Symptoms: Photophobia: yes Phonophobia: yes Nausea: yes Vomiting: yes Worse with activity: yes Number of migraine headache days/month: 10 Migraine headache severity: 7/10 Number of NON-migraine headache days/month: 18 Number of headache free days/month: 2 Aura: right upper and lower extremity numbness/tingling and weakness along with vision abnormalities which is binocular with kaleidoscope vision alongside her headaches. Days missed from work or school in the last month: 0 days Preventative: Botox PREEMPT Protocol, zonisamide 100mg, lamictal (with an outside department), zoloft (with an outside department) Abortive: nurte Medications effective? yes # of doses of abortive medications per month: nurtec x8, tylenol x4 Analgesic Butalbital/acetaminophen/caffeine (Fioricet) Anti-Convulsant Lamotrigine (Lamictal) Topiramate (Topamax, Trokendi XL, Qudexy) Zonisamide (Zonegram) Anti-Depressant and Antipsychotic Citalopram (Celexa) Fluoxetine (Prozac) Sertraline (Zoloft) Anti-Migraine Rizatriptan (Maxalt) Sumatriptan (Imitrex, Sumavel) GEPANTS Rimegepant (Nurtec) Botulinum Toxin Onabotulinum Toxin A (Botox) 3 rounds 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 Pseudotumor cerebri PTSD (post-traumatic stress disorder) PAST SURGICAL HISTORY Procedure Laterality Date ABDOMINAL SURGERY HX 2009 exploration APPENDECTOMY 2008 DELIVERY ONLY HYSTERECTOMY NOSE SURGERY HX 2010 REMOVAL GALLBLADDER TUBAL LIGATION HX ALLERGIES Allergen Reactions Iodinated Contrast * Anaphylaxis Does not tolerate with pre-medication Fish Containing Pro* Hives Shellfish Derived Hives Aleve [Naproxen] Angioedema Aspirin Angioedema Ceclor [Cefaclor] Shortness of Breath Ceftin [Cefuroxime * Shortness of Breath Clindamycin Rash, Shortness of Breath Erythromycin Swelling, Shortness of Breath Eucalyptus Anaphylaxis Gatifloxacin Diarrhea Lavender (Lavandula* Anaphylaxis Penicillins Rash, Itching Sulfa (Sulfonamide * Swelling, Shortness of Breath Vioxx [Rofecoxib] Unknown Froylan 28 [Drospirenon* Other: See Comments Skin discoloration of feet with OCPs Latex Rash, Itching Skin cracks and bleeds Levofloxacin Rash Current Medications: famotidine (PEPCID) 40 mg tablet Take 40 mg by mouth as needed. cetirizine (ZYRTEC) 10 mg tablet Take 10 mg by mouth as needed. diphenhydrAMINE (BENADRYL) 25 mg tablet Take 50 mg by mouth every 6 hours as needed. LORazepam (ATIVAN) 0.5 mg Take 0.5 mg by mouth twice daily as needed. fluticasone (FLONASE) 50 mcg/actuation nasal spray Use 1 Ring[place]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 hives/coughing with pre-medication Asthma Diagnosed around 15-16 years of age on Spirometry. States it is mild as long as the weather is not changing or allergic rhinitis triggered. Typical symptoms include: shortness of breath and cough. Nocturnal symptoms occur daily. She uses ICS/LABA in Spring/Fall, states when she takes it routinely she feels ill, like it makes her cough worse, this occurs with use of a spacer as well. She does not like taking Albuterol because it makes her heart race. Asthma is managed by her family medicine physician and veterinary laboratory technician. Has had 0 ER, hospitalization and ICU admissions for asthma since the last visit. Does not recall last use of Prednisone. PFTs recently performed in 03/2021. Has a hx of KATELIN on CPAP. 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 Hx of latex sensitivity- develops rash and swelling at area of contact. 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 Pseudotumor cerebri PTSD (post-traumatic stress disorder) ACTIVE PROBLEM LIST Coagulopathy (Hcc) Arachnoid Cyst of Pituitary Gland Symptomatic Bradycardia Blood Pressure Instability Subjective Muscle Weakness Malaise and Fatigue Transient Diplopia Orthostatic Lightheadedness Screening for Endocrine Disorder Primary Hypothyroidism PAST SURGICAL HISTORY Procedure Laterality Date ABDOMINAL SURGERY HX 2009 exploration APPENDECTOMY 2008 DELIVERY ONLY HYSTERECTOMY NOSE SURGERY HX 2010 REMOVAL GALLBLADDER TUBAL LIGATION HX FAMILY HISTORY Problem Relation Age of Onset Diabetes Mother uncontrolled Hypertension Mother Heart Attack Mother First MS at age 51 Cardiomyopathy Mother at age 52 Ischemic Heart Disease Mother Hypertension Father Diabetes Father Heart disease Father at age 57 Hypertension Sister Diabetes Sister Heart Son Being evaluated for HOCM (Dad has) Heart Son Being evaluated for HOCM (Dad has) other (Syncope) Son Neurocardiogenic Syncope Heart Son Being evaluated for HOCM (Dad has) Asthma Son No Ocular Disease Other Social History Tobacco Use Smoking status: Never Smoker Smokeless tobacco: Never Used Vaping Use Vaping Use: Never used Substance Use Topics Alcohol use: Not Currently Drug use: Not Currently ALLERGIES: ALLERGIES Allergen Reactions Iodides Unknown Iodinated Contrast * Anaphylaxis Iv Contrast [Contra* Anaphylaxis Aleve [Naproxen] Swelling Aspirin Unknown Ceclor [Cefaclor] Anaphylaxis Ceftin [Cefuroxime * Unknown Clindamycin Swelling, Shortness of Breath Erythromycin Swelling, Shortness of Breath Eucalyptus Anaphylaxis Gatifloxacin Diarrhea Latex Swelling, Itching Skin cracks and bleeds Lavender (Lavandula* Anaphylaxis Metronidazole Unknown Necon [Norethindron* Unknown Penicillins Rash, Itching Sulfa (Sulfonamide * Swelling, Shortness of Breath Sulfamethoxazole-Tr* Unknown Vioxx [Rofecoxib] Unknown Froylan 28 [Drospirenon* Unknown Levofloxacin Rash CURRENT OUTPATIENT MEDICATIONS: famotidine (PEPCID) 40 mg tablet Take 40 mg by mouth as needed. cetirizine (ZYRTEC) 10 mg tablet Take 10 mg by mouth as needed. diphenhydrAMINE (BENADRYL) 25 mg tablet Take 50 mg by mouth every 6 hours as needed. LORazepam (ATIVAN) 0.5 mg Take 0.5 mg by mouth twice daily as needed. fluticasone (FLONASE) 50 mcg/actuation nasal spray Use 1 [place] in each nostril twice daily. zonisamide (ZONEGRAN) 100 mg capsule Take 1 capsule by mouth once daily. rimegepant (NURTEC ODT) 75 mg disintegrating tablet Take 1 tablet by mouth once daily as needed. No more than 1 dose in 24 hours. prazosin (MINIPRESS) 5 mg cap Take 5 mg by mouth daily at bedtime. onabotulinum toxin type A (BOTOX) 100 unit solr by INJECTION(UNSPECIFIED PARENTERAL ROUTES) route every 3 months. mecobalamin, vitamin B12, 1,000 mcg ODT once daily. VITAMIN D-3 125 mcg (5,000 unit) tab Take 5,000 Units by mouth once daily. SITagliptin (JANUVIA) 100 mg tablet Take 100 mg by mouth as needed. EPINEPHrine 0.1 mg/0.1 mL AutoInjector as needed. budesonide-formoterol (SYMBICORT) 160-4.5 mcg/actuation inhaler Inhale 2 Puffs as instructed as needed. lamoTRIgine (LAMICTAL) 150 mg tablet Take 150 mg by mouth daily at bedtime. sertraline (ZOLOFT) 100 mg tablet Take 200 mg by mouth daily at bedtime. levothyroxine (SYNTHROID) 112 mcg tablet Take 112 mcg by mouth daily before breakfast. Takes 1.5 tablets on Wednesdays ALBUTEROL INHALATION Inhale as instructed as needed. montelukast (SINGULAIR) 10 mg tablet Take 10 mg by mouth once daily. REVIEW OF SYSTEMS: HEENT: as per HPI RESPIRATORY: as per HPI CONSTITUTIONAL: No acute distress. No weight loss or gain, no fevers or chills CARDIOVASCULAR: negative for chest pain, leg swelling or palpitations. GASTROINTESTINAL: Negative for abdominal discomfort, No blood in stools or black stools MUSCULOSKELETAL: negative for joint pain or swelling, back pain or muscle pain. NEUROLOGIC:Negative for focal numbness or weakness, headaches and dizziness or syncope. DERM/SKIN: as per HPI PSYCHIATRIC: Negative for sleep disturbance, mood disorder and recent psychosocial stressors HEMATOLOGIC/LYMPHATIC/IMMUNOLOGIC:Negative for cold or heat intolerance, polyuria, polydipsia and goiter. PHYSICAL EXAM: BP 104/62 Pulse 83 Temp (Src) 97.2 (Temporal) Resp 14 Ht 5' 4 (1.63m) Wt 214 lb 14.4 oz (97.5kg) SpO2 99[Room air]% LMP 2015 BMI 36.87 kg/(m^2). General appearance: Well appearing, alert, in no acute distress, well-hydrated, well nourished. HENT: External ears normal, canals clear, TM's normal Eyes: no scleral icterus, PERRLA, EOMS, no conjunctivitis Nose/Sinuses: Nares normal. Septum midline. Mucosa pale. No drainage or sinus tenderness. Oropharynx: Lips, mucosa, and tongue normal, teeth and gums normal, oropharynx normal Respiratory: Lungs clear to auscultation. No wheezing, rhonchi, rales Cardiovascular: RRR without murmur, gallop, or rubs. No ectopy Gastroenterology: normal appearing abdomen on inspection Musculoskeletal: No joint pain, muscle weakness, or impaired gait Integumentary: Negative for lesions, rash, and itching. DATA: CBC Latest Ref Rng & Units 06/14/2021 06/27/2021 07/06/2021 WBC 3.70 - 11.00 k/uL - 6.89 6.53 RBC 3.90 - 5.20 m/uL - 5.02 4.90 HEMOGLOBIN 11.5 - 15.5 g/dL - 14.9 14.5 HEMATOCRIT 36.0 - 46.0 % 46.3(H) 42.8 42.8 MCV 80.0 - 100.0 fL - 85.3 87.3 MCH 26.0 - 34.0 pg - 29.7 29.6 MCHC 30.5 - 36.0 g/dL - 34.8 33.9 RDW-CV 11.5 - 15.0 % - 11.5 11.8 PLATELETS 150 - 400 k/uL 277 251 241 MPV 9.0 - 12.7 fL - 9.7 9.7 BASO% % - 0.4 0.6 ABS NEUT (ANC) 1.45 - 7.50 k/uL - 4.92 4.57 ABS LYMPH 1.00 - 4.00 k/uL - 1.45 1.36 ABS MONO <0.87 k/uL - 0.30 0.32 ABS EOSIN <0.46 k/uL - 0.17 0.20 ABS BASO <0.11 k/uL - 0.03 0.04 NRBC /100 WBC - 0.0 0.0 CMP Latest Ref Rng & Units 05/24/2021 06/27/2021 SODIUM 136 - 144 mmol/L 138 138 POTASSIUM 3.7 - 5.1 mmol/L 3.8 4.1 CHLORIDE 97 - 105 mmol/L 101 103 CO2 22 - 30 mmol/L 25 23 GLUCOSE 74 - 99 mg/dL 87 102(H) BUN 7 - 21 mg/dL 9 9 CREATININE 0.58 - 0.96 mg/dL 0.90 0.86 EGFR >=60 mL/min/1.73m 85 89 PROTEIN, TOTAL 6.3 - 8.0 g/dL - 7.1 ALBUMIN 3.9 - 4.9 g/dL - 4.4 CALCIUM, TOTAL 8.5 - 10.2 mg/dL 9.7 10.0 BILIRUBIN, TOTAL 0.2 - 1.3 mg/dL - 0.4 AST 13 - 35 U/L - 20 ALT 7 - 38 U/L - 36 ALKALINE PHOSPHATASE 34 - 123 U/L - 73 Pulmonary Function Testing Read ([facility]) 03/07/21 SUMMARY: 1. The respiratory therapist reports the patient's effort as being good, but requiring a lot of coaching throughout the study. 2. The forced vital capacity is at 92% of predicted. 3. The forced exhaled volume in 1 second is at 87% of predicted. 4. The forced exhaled volume in 1 second/forced vital capacity is at 94% of predicted. 5. The forced exhaled flow at 25-75% is decreased at 73% of predicted. 6. A 23% improvement was seen in the forced exhaled flow at 25-75% after one-time dose of bronchodilator without a significant improvement in the forced vital capacity or forced exhaled volume in 1 second. 7. The MVV is decreased at 53% of predicted. 8. The total lung capacity is normal at 92% of predicted. 9. The DLCO is decreased at 65% of predicted, the DLCO/VA is normal at 79% of predicted. IMPRESSION: 1. Relatively normal prebronchodilator pulmonary function tests. A significant improvement was seen only in the forced exhaled flow at 25-75% to suggest possible reversible small airway disease (asthma), please correlate clinically. 2. A decreased MVV suggests respiratory muscle weakness. 3. The DLCO is decreased at 65% of predicted whereas the DLCO/VA is normal at 79% of predicted. Assessment/Recommendations: Angioedema, initial encounter (primary encounter diagnosis) Urticaria Hoarseness of voice Comment: Unclear etiology of reactions triggered by scents- differential includes vocal cord dysfunction, anaphylaxis (idiopathic or due to a trigger), idiopathic urticaria and angioedema. She describes sensation of possible angioedema but also notes shortness of breath- unclear if symptom is angioedema or upper respiratory symptoms- no visualization of angioedema in most recent ER visit however endoscopy was not performed. No clear consistent food or medication trigger with most recent episodes. Will evaluate for hereditary/aquired causes of angioedema with complement levels, will also refer to Dr. Cardenas for evaluation of vocal cords. Will screen for mast cell mediated disorder with tryptase level. In the interim, will start higher dose scheduled antihistamine and closely monitor symptoms. Plan: - C3 COMPLEMENT BLD, C4 COMPLEMENT BLD, TRYPTASE - Consult to Dr. Cardenas - Start Cetirizine 10mg twice daily, continue Pepcid 40mg daily - EpiPen up to date Allergic rhinitis, unspecified seasonality, unspecified trigger Comment: Uncontrolled- advise started unscented intranasal corticosteroid. Of note humoral immunodeficiency evaluation normal (see scanned documents) Plan: - Start Nasonex or Nasocort 2 sprays in each nsotril daily - Continue Cetirizine as above, Singulair 10mg daily Adverse effect of drug, initial encounter Comment: Multiple listed drug allergies- will screen for mast cell mediated disorder as above. Continue complete avoidance of triggering medications Allergic reaction to contrast material, initial encounter Comment: Continue complete avoidance of iodinated contrast. Adverse food reaction, initial encounter Comment: Hx of hives with shellfish and finned fish, continue avoidance at this time. Moderate persistent asthma without complication Comment: Uncontrolled with daily nocturnal symptoms- advised follow-up with local veterinary laboratory technician. Continue Symbicort, Albuterol Gastroesophageal reflux disease, unspecified whether esophagitis present Comment: Controlled, continue Pepcid as above Virtual visit in 3 months I spent a total of 60 minutes on the date of the service which included preparing to see the patient, [id number] patient care, completing clinical documentation, obtaining and/or reviewing separately obtained history, performing a medically appropriate examination, counseling and educating the patient/family/caregiver and ordering medications, tests, or procedures. Cindy Rushing MD documented in this encounter [facility] 07-22-2021 History of Present illness Narrative HEMATOLOGY FOLLOW UP Elements in this clinic note that are critical to medical decision making have been carefully reviewed and included from my prior clinic note dated: July 01, 2021 July 22, 2021 PCP and other physicians involved in patient's care: Cas Dowell (PCP), Rajinder Collins (surgery), Rubens Tim (ObGyn), Armando Pederson, DIAGNOSIS: Undiagnosed bleeding disorder, work-up pending HEMATOLOGICAL HISTORY: Patient has an extensive and longstanding history of bleeding issues. In 2008, she was seen by Dr. Shirley and was noted to have an elevated PTT of 36 seconds. This corrected by addition of FFP. 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 She reportedly tested negative for von Willebrand disease. Some of these labs have been scanned in our EMR (2011). Previous bleeding history includes menorrhagia (endometrial ablation in 2014 for which she needed FFP and hysterectomy in 2019 [unclear whether she got FFP]), epistaxis since childhood (resolved after sinus surgery in 2010), gum bleeding on a daily basis with minimal trauma, and a recent episode of bright red blood per rectum in March 2021 (no EGD or colonoscopy). Previous dental procedures include cavity fillings. It is unclear whether she had any bleeding issues after that procedure. She has had 2 normal vaginal deliveries with hemorrhage but patient does not remember if any medical or surgical intervention was done. She had a C- section during her third and reports that the surgery took longer than anticipated. Referred to me in May 2021 for pre-operative clearance prior to elective inguinal hernia repair May 2021, PT 10 seconds, PTT 32.7 seconds, activity levels of factors II, V, IX, X, XI; activity levels of factor VIII elevated; no evidence of von Willebrand's disease; platelet function screen normal; platelet aggregometry notable showed mildly decreased aggregation to low dose ADP, collagen, and arachidonic acid but normal aggregation to high dose ADP and epinephrine (low and high dose). There was a normal stimulated dense granule release to all agonists. The ristocetin induced platelet aggregation showed a normal dose response. Overall, these findings were non-specific. July 2021, above labs repeated with the same result; TEG normal; fibrinogen antigen normal INTERVAL HISTORY: Leana comes for a follow up. No new complaints since last visit. She has met with medical appointment scheduler and is willing to undertake additional testing for inherited platelet disorders. She is awaiting insurance authorization. Elective inguinal hernia repair remains on hold. 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 Patient is adopted and does not know her family history well. She has 3 boys who are relatively healthy. Her oldest son (age 16 years) has similar bleeding symptoms including easy gum bleeding and epistaxis as the patient. No substance abuse. MEDICATIONS AND ALLERGIES: Reviewed PHYSICAL EXAM BP 129/79 Pulse 71 Temp 36.4 C (97.5 F) (Temporal) Resp 16 Ht 162.6 cm (5' 4.02 ) Wt 98 kg (216 lb) LMP 2015 SpO2 97% BMI 37.06 kg/m Head atraumatic, no pallor or icterus, breathing comfortably, neuro grossly non- focal, skin without rash or bruises, extremities without swelling LABORATORY, IMAGING AND PATHOLOGY May 2021 PT 10 seconds, PTT 32.7 seconds, activity levels of factors II, V, IX, X, XI; activity levels of factor VIII elevated; no evidence of von Willebrand's disease Platelet function screen normal Platelet aggregometry notable showed mildly decreased aggregation to low dose ADP, collagen, and arachidonic acid but normal aggregation to high dose ADP and epinephrine (low and high dose). There was a normal stimulated dense granule release to all agonists. The ristocetin induced platelet aggregation showed a normal dose response. Overall, these findings were non-specific July 2021 Fibrinogen antigen 380 Fibrinogen activity 390 TEG normal Platelet aggregometry abnormal with a nonspecific pattern ASSESSMENT AND RECOMMENDATIONS 35 female with an unclear bleeding disorder and abnormal platelet aggregometry Patient's clinical history suggestive of an underlying bleeding disorder. She has had multiple surgical, obstetric, gynecologic, and dental procedures in the past. Some of these procedures have been associated with postoperative bleeding complications. Patient also has multiple bleeding issues such as easy gum bleeding on a regular basis. Her family history is unclear given that she was adopted but one of her sons has symptoms similar to her's (recurrent epistaxis and easy gum bleeding). Work-up for bleeding disorder in May 2021 showed an abnormal platelet aggregometry. There was mildly decreased aggregation to low dose ADP, collagen, and arachidonic acid but normal aggregation to high dose ADP and epinephrine (low and high dose). These findings were considered to be nonspecific. Patient does not take any aspirin or NSAIDs. 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 She has seen medical genetics and work-up is ongoing pending insurance authorization. Based on her previous surgical experiences, any surgical bleeding may be minimized by using FFP and platelet transfusions prior to the procedure. Follow up after genetics work-up is complete. Yan Bass MD I spent a total of 30 minutes on the date of the service which included preparing to see the patient, [id number] patient care, completing clinical documentation, obtaining and/or reviewing separately obtained history, performing a medically appropriate examination, counseling and educating the patient/family/caregiver, ordering medications, tests, or procedures, independently interpreting results (not separately reported) and communicating results to the patient/family/caregiver. CC: Cas Dowell documented in this encounter [facility] 07-21-2021 History of Present illness Narrative Images from the original note were not included. [facility] [place] Huang Cabrera Department of Cardiovascular Medicine SECTION OF CLINICAL CARDIOLOGY OUTPATIENT VISIT DATE July 21, 2021 OUTPATIENT VISIT TYPE NEW PRIMARY CARE PHYSICIAN: Cas Dowell MD ([facility]) [address] [place] [address] REFERRING PHYSICIAN: Peter Knight [id number] [place] [facility] [id number] CHIEF COMPLAINT: Symptomatic bradycardia and hypotension HISTORY OF PRESENT ILLNESS: Ms. Tran is a 35 year old female who presents today for evaluation of symptomatic bradycardia. She reports first symptoms of bradycardia in October 2020 while sick and infected with COVID. She reports having persistent HR in the 38-42 bpm range. Symptoms included shortness of breath, couldn't catch her breath to speak, she felt heaviness and pressure over her chest. She sought medical care at the ED but was she was felt to have adequate blood pressure, so no treatment was performed. One of the presentations, she underwent CTPE which was negative. She visited the ED and was discharged a total of 4 times. On the 5th time, she presented with the symptoms above in November 2020, at which time she reportedly had T-wave inversions and was admitted to ICU. She was treated with IV fluids, steroids, and antibiotics for pneumonia coverage. She did not require temporary pacing. She received atropine x1 in the ICU and HR went from ~40 bpm to 60 bpm, but her blood pressure increased to 280/160 mmHg reportedly. She saw two cardiologists around the time of hospitalization, with one recommending PPM and the other recommending against. She had an echocardiogram performed without significant abnormalities. She was told by one performance improvement coordinator to wear compression stockings and increase fluid intake, which she has done since that time. On 06/11/2021, she awoke from sleep with a sharp kicking/thumping sensation in her chest and vomiting. Since that time her heart rate has normalized per her report, with a minimum HR 54. However, she feels like her BP is still too low. She reports that if she is upright for a prolonged period of time, she can have sudden drops in blood pressure to 70s/30s and she feels associated lightheadedness/dizziness/presyncopal. This resolves with lying recumbent. She only uses a wrist cuff for blood pressure. On 06/15/2021, she underwent tilt table testing for autonomic dysfunction that was normal. She presents today with normal vital signs, including normal orthostatics. Was seen by Endocrine more recently, normal cortisol and ACTH with 7:30 AM collection. Reviewed medications with her. She has only been taking prazosin for the last 2- 3 weeks, so it was not a culprit at the time of her symptoms last fall. Prazosin has been helpful the last 2 weeks and her sleep is greatly improved. She denies chest pain, shortness of breath, orthopnea, cough, edema, palpitations, PND, or syncope. 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 Pseudotumor cerebri PTSD (post-traumatic stress disorder) PAST SURGICAL HISTORY Procedure Laterality Date ABDOMINAL SURGERY HX 2009 exploration APPENDECTOMY 2008 DELIVERY ONLY HYSTERECTOMY NOSE SURGERY HX 2010 REMOVAL GALLBLADDER TUBAL LIGATION HX SOCIAL HISTORY Social History Tobacco Use Smoking status: Never Smoker Smokeless tobacco: Never Used Vaping Use Vaping Use: Never used Substance Use Topics Alcohol use: Not Currently Drug use: Not Currently FAMILY HISTORY Problem Relation Age of Onset Diabetes Mother uncontrolled Hypertension Mother Heart Attack Mother First MS at age 51 Cardiomyopathy Mother at age 52 Ischemic Heart Disease Mother Hypertension Father Diabetes Father Heart disease Father at age 57 Hypertension Sister Diabetes Sister No Ocular Disease Other Heart Son Being evaluated for HOCM (Dad has) Heart Son Being evaluated for HOCM (Dad has) other (Syncope) Son Neurocardiogenic Syncope Heart Son Being evaluated for HOCM (Dad has) Asthma Son ALLERGIES: ALLERGIES Allergen Reactions Iodides Unknown Iodinated Contrast * Anaphylaxis Iv Contrast [Contra* Anaphylaxis Aleve [Naproxen] Swelling Aspirin Unknown Ceclor [Cefaclor] Anaphylaxis Ceftin [Cefuroxime * Unknown Clindamycin Swelling, Shortness of Breath Erythromycin Swelling, Shortness of Breath Eucalyptus Anaphylaxis Gatifloxacin Diarrhea Latex Swelling, Itching Skin cracks and bleeds Lavender (Lavandula* Anaphylaxis Metronidazole Unknown Necon [Norethindron* Unknown Penicillins Rash, Itching Sulfa (Sulfonamide * Swelling, Shortness of Breath Sulfamethoxazole-Tr* Unknown Vioxx [Rofecoxib] Unknown Froylan 28 [Drospirenon* Unknown Levofloxacin Rash MEDICATIONS: LORazepam (ATIVAN) 0.5 mg Take 0.5 mg by mouth twice daily as needed. fluticasone (FLONASE) 50 mcg/actuation nasal spray Use 1 [place] in each nostril twice daily. zonisamide (ZONEGRAN) 100 mg capsule Take 1 capsule by mouth once daily. rimegepant (NURTEC ODT) 75 mg disintegrating tablet Take 1 tablet by mouth once daily as needed. No more than 1 dose in 24 hours. prazosin (MINIPRESS) 5 mg cap Take 5 mg by mouth daily at bedtime. onabotulinum toxin type A (BOTOX) 100 unit solr by INJECTION(UNSPECIFIED PARENTERAL ROUTES) route every 3 months. mecobalamin, vitamin B12, 1,000 mcg ODT once daily. VITAMIN D-3 125 mcg (5,000 unit) tab Take 5,000 Units by mouth once daily. SITagliptin (JANUVIA) 100 mg tablet Take 100 mg by mouth as needed. EPINEPHrine 0.1 mg/0.1 mL AutoInjector as needed. budesonide-formoterol (SYMBICORT) 160-4.5 mcg/actuation inhaler Inhale 2 Puffs as instructed as needed. lamoTRIgine (LAMICTAL) 150 mg tablet Take 150 mg by mouth daily at bedtime. sertraline (ZOLOFT) 100 mg tablet Take 200 mg by mouth daily at bedtime. levothyroxine (SYNTHROID) 112 mcg tablet Take 112 mcg by mouth daily before breakfast. Takes 1.5 tablets on Wednesdays ALBUTEROL INHALATION Inhale as instructed as needed. montelukast (SINGULAIR) 10 mg tablet Take 10 mg by mouth once daily. REVIEW OF SYSTEMS: Positives in Bold GENERAL: Negative for: Weight loss or gain, Fever or Chills, Weakness and Sleep difficulties. HEENT: Negative for: Headache, Impaired Vision, Glasses, Hearing Impairment, Ringing in Ears, Nosebleeds, Poor dental care, Bleeding Gums, Dentures NECK: Negative for: Swelling, Pain, Stiffness RESPIRATORY: Negative for: Cough, Blood in Sputum, Shortness of breath, Wheezing, Apnea GASTROINTESTINAL: Negative for: Trouble swallowing, Heartburn, Change in bowel habits, Blood in stool, Dark black stools MUSCULOSKELETAL: Negative for: Muscle or joint pain, Stiffness , Joint swelling NEUROLOGIC/PSYCHIATRIC: Negative for: Weakness, Paralysis, Numbness, Tingling, Tremor, Nervousness, Depressed mood, Memory loss SKIN: Negative for: Rashes, Itching HEMATOLOGICAL/LYMPHATIC: Negative for: Easy bruising , Easy bleeding ENDOCRINE: Negative for: Heat or cold intolerance, Excessive sweating, Frequent urination, Frequent thirst PHYSICAL EXAMINATION: BP 130/67 (BP Site: Left Arm, BP Position: Sitting, BP Cuff Size: Large Adult) Pulse 62 Resp 20 LMP 2015 SpO2 100% BP w/Orthostatic Vitals Date and Time Orthostatic BP Orthostatic Pulse BP Pulse BP Position BP Site BP Cuff Size 07/21/21 1336 131/87 76 -- -- Standing Right Arm Large Adult 07/21/21 1334 129/70 59 -- -- Sitting Right Arm Large Adult 07/21/21 1330 134/74 56 -- -- Supine Right Arm Large Adult 07/21/21 1329 -- -- 130/67 62 Sitting Left Arm Large Adult General: Well appearing, in no acute distress. Skin: No clubbing, no cyanosis. Eyes: Extra ocular movements intact Oropharynx: Teeth in good repair. Neck: No jugular venous distention, no carotid bruits, carotids have a normal upstroke, no palpable thyromegaly. Lungs: Clear to auscultation bilaterally, no wheezing or rhonchi. Heart: Regular rhythm, PMI not displaced, S1, S2 normal, no S3, no S4, no heaves, no rub and no murmur. Abdomen: Soft, nontender, bowel sounds normal, no palpable organomegaly, no bruits. Extremities: No peripheral edema . Grade 2/4 distal pulses bilaterally. Neuro: Oriented to person, place and time, alert, cooperative, gait coordinated. CARDIOVASCULAR MEDICINE TESTIN01/03/2021 Holter Monitoring 01/03/2021 12:25 PM EST The baseline rhythm was sinus with an average heart rate of 67 beats per minute. Heart rate 44-114 beats per minute No ventricular ectopy was seen No significant supraventricular ectopy was noted Longest RR interval was 1.5 seconds Symptoms did not correlate with any type of arrhythmia The patient had over 21 hours of bradycardia during the 48 hour monitoring Monitoring started at 1:14 PM and continued for 47 hr 59 min. The average heart rate was 67 BPM. The minimum heart rate was 44 BPM, occurring at 8:16:37 AM D1. The maximum heart rate was 114 BPM, occurring at 8:42:31 PM D1. The patient's rhythm included 21 hr 5 min 54 sec of bradycardia. The slowest single episode of bradycardia occurred at 8:14:19 AM D1, lasting 2 min 33 sec, with minimum heart rate of 44 BPM. The patient's rhythm included 46 min 47 sec of tachycardia. The fastest single episode of tachycardia occurred at 8:42:10 PM D1, lasting 41 sec, with maximum heart rate of 114 BPM. Supraventricular ectopic activity consisted of 111 beats, of which, 10 were in atrial couplets, 36 were late beats, 65 were single PACs. The longest R-R interval was 1.5 seconds occurring at 2:10:04 AM D1. The longest N-N interval was 1.5 seconds 06-14-2021 Neuro Cardio Autonomic Reflex Testing: Heart rate response to deep breathing is normal via the mean heart rate range (MHRR) and the E:I ratio. Heart rate response to the Valsalva maneuver, as assessed by the Valsalva ratio, is normal. Blood pressure responses to phase II and phase IV of the Valsalva maneuver are normal. During 10 minutes of 60 degree head-up tilt, heart rate and blood pressure responses are normal. The maximum heart rate increase is 18 bpm (normal less than 30 bpm) at the 2nd minute of tilt. The systolic blood pressure increases by 18 mmHg at minute 4 of the tilt. There is no reduction in diastolic blood pressure. The patient complained of weak legs, nausea, and dizziness during the tilt. This is a normal cardiovascular autonomic test panel. There is no evidence of a significant cardiovagal or cardiovascular adrenergic abnormality. Specifically, there is no evidence of orthostatic tachycardia or hypotension. Last EKG Result Conclusion ECG COMPLETE Collected: 05/24/2021 12:12 PM (Preliminary result) Impression: MARKED SINUS BRADYCARDIA ANTERIOR T WAVE ABNORMALITY ABNORMAL ECG Complete Results I have personally reviewed the Electrocardiogram and Laboratory Testing. IMPRESSION: Ms. Tran is a 35 year old female with symptoms associated with previous bradycardia and now hypotension. She has suffered symptoms since her COVID infection in fall 2020, initially predominantly bradycardia but now this has normalized and she reports more symptoms she attributes to hypotension. She has had significant testing and seen multiple specialists, including other cardiologists, neurologists, and endocrine. Her workup has included Holter monitoring, tilt table testing, and adrenal axis testing. She also had other testing for neuro/motor symptoms, but brain MRI w/wo contrast was essentially unremarkable. She has already completed a thorough evaluation. She has had resolution of her bradycardia, and her HR on Holter monitoring appeared to show adequate chronotropic response as she increased above 110 bpm. She had a negative tilt table test, making POTS unlikely. Adrenal insufficiency ruled out with recent endocrine testing. Will plan to obtain an echocardiogram of her heart to evaluate for any other structural causes of her hypotension. We also recommend a 24-hour ambulatory blood pressure monitor to quantify blood pressure and monitor for events objectively. 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 We agree with her previous physicians recommendations for supportive care, including the fluid intake, salt intake, and compression stockings. We attempted to reassure her that while this has been a frustrating process, overall she is improving with time, and that her symptoms may resolve with further time. PLAN AND RECOMMENDATIONS: 1) COVID clinic referral 2) Ambulatory 24 hr BP monitor 3) Echo 4) Fluid/salt intake, compression stockings Case to be discussed with staff. All recommendations & plans to be considered preliminary until staff attestation. Christy Santos MD Cardiovascular Medicine Fellow 07/21/2021 [facility] STAFF PHYSICIAN NOTE OF PERSONAL INVOLVEMENT IN CARE I have reviewed the history and physical examination obtained and documented by the fellow and I personally participated in the appiah components. I have discussed the case and management of the patient's care. Agree with the documented plan of care. 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 She has had a thorough work-up as outlined above, but continues to have quality of life impairing symptoms. Overall, she does feel that the overall trajectory is that of slow improvement. More recently, has episodes during which she feels tired and fatigued and notices that her blood pressures are lower than usual. She lies down when this happens and eventually her pressures improve. -Echocardiogram, ambulatory BP monitor [objective assessment of blood pressures] -Review in the [facility] Sai Perez M.D. Huang Cabrera Department of Cardiovascular Medicine Heart and Vascular [place] [facility] Desk [id number] [address] Office [phone] extension [phone] Office Appointments: [phone] extension [phone] documented in this encounter [facility] 07-20-2021 History of Present illness Narrative NA documented in this encounter [facility] 07-19-2021 Miscellaneo us Notes Ms. Tran, I reviewed the test results. Considering the fact that you normally wake up very early in the morning, the cortisol checked at 7:37 AM is quite good (cortisol normally peaks when we wake up then drops.) I do not think you have adrenal insufficiency. Please seek other causes of low blood pressure with other groups of doctors. Wish you well. Dr. Marques Endocrinology documented in this encounter [facility] 07-15-2021 History of Present illness Narrative [facility] Consultation Note Genetic Counselor: Juan Ramon Briones MS, [facility] Patient: Leana Tran Patient Name and confirmed at initiation of visit. The patient provided consent for a virtual visit by Florentin Carver. HIGH LEVEL SUMMARY: The patient's personal history is potentially suggestive of a hereditary bleeding disorder. The patient provided informed consent for bleeding disorders panel through [employer] [facility] pending insurance determination. IDENTIFICATION AND CHIEF COMPLAINT: Dr. Yan Bass requested a consultation for genetic counseling and risk assessment for Leana Tran, a 35 year old female, for discussion of her personal history of bleeding disorder. She presents to clinic today to discuss the possibility of a hereditary bleeding disorder, and to further clarify her risks, as well as her family members' risks. HISTORY OF PRESENT ILLNESS: Leana Tran is a 35 year old female with an extensive and longstanding history of bleeding diathesis since she was a child suggestive of a bleeding disorder. Her bleeding symptoms including epistaxis, menorrhagia, gum bleeds, and hemorrhage.In 2008, she was seen by Dr. Shirley and was noted to have an elevated PTT of 36 seconds. This corrected by addition of FFP. She was diagnosed with a mild factor deficiency. More recently she was seen by Dr. Bass for evaluation for surgical clearance prior to an elective hernia repair. Her work-up in May 2021 showed May PT of 10 seconds, PTT of 32.7 seconds, normal activity levels of factors II, V, IX, X, XI, elevated activity levels of factor VIII, normal von Willebrand panel, normal platelet counts and morphology, normal platelet function screen. Her platelet aggregation study was abnormal with a nonspecific pattern. Platelet studies were repeated in July with similar results, normal platelet function screen and non-specific, abnormal platelet aggregation. Her fibrinogen levels were normal. 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 She had chronic upper respiratory and sinus infections as a child. BLEEDING CHECKLIST Petechial rashes: Yes Epistaxis: Yes, she presented to ED for packing twice, she had sinus surgery in 2010 due to chronic infections, and her nosebleeds have been less frequent since Easy bruising: Yes Gingival bleeding: Yes, gum bleeding on a daily basis with minimal trauma Menorrhagia: Yes, endometrial ablation in 2014 for which she needed FFP and hysterectomy in 2019, included cervicectomy due to cervicitis Prolonged or excessive bleeding with... Small cuts: Yes Tooth extraction: unsure, wisdom teeth removal in 2001 Surgery: Yes, required FFP with ablation, her laparoscopic surgeries have not been complicated by bleeding issues, she has needed pressure dressings and medications due to bleeding complications Childbirth: Yes, , hemorrhage for both of her vaginal deliveries, she had a for her third and reports that the surgery took longer than anticipated Hematuria: No Black/bloody stools: Yes, recent episode of bright red blood per rectum in March 2021 (no EGD or colonoscopy) Bleeding into the muscle/joint/head: No Swelling of the lower leg/foot: Yes Fatigue: Yes 07/06/21 Platelet aggregation study: Interpretation: Abnormal - see comment below. SIGNIFICANT FINDINGS: 1. Decreased aggregation to low dose ADP and epinephrine A laboratory study of platelet aggregation and stimulated granule release was performed. The platelet count and platelet morphology is normal. The platelet aggregation study is abnormal. The platelet aggregation study shows reduced aggregation to high dose ADP and epinephrine (low and high dose) but normal responce to high dose ADP, collagen and arachidonic acid. There is normal stimulated dense granule release to ADP, collagen, arachidonic acid and epinephrine. The ristocetin induced platelet aggregation shows a normal dose response. The pattern of platelet reactivity is nonspecific. The results could be seen with a non-aspirin drug effect or an intrinsic platelet dysfunction. The pattern is not indicative of a specific diagnosis, but Glanzmann thrombasthenia, Rishi Soulier Disease and platelet dense granule storage pool disorder are unlikely. If clinically indicated, consider platelet flow cytometry to further characterize the abnormal platelets. Please correlate these laboratory results with clinical findings and medication history. 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 Pseudotumor cerebri PTSD (post-traumatic stress disorder) PAST SURGICAL HISTORY Procedure Laterality Date ABDOMINAL SURGERY HX 2009 exploration APPENDECTOMY 2007 DELIVERY ONLY HYSTERECTOMY NOSE SURGERY HX 2010 REMOVAL GALLBLADDER TUBAL LIGATION HX SOCIAL HISTORY: Social History Tobacco Use Smoking status: Never Smoker Smokeless tobacco: Never Used Vaping Use Vaping Use: Never used Substance Use Topics Alcohol use: Yes Comment: rarely uses alcohol Drug use: Not Currently FAMILY HISTORY: We obtained a detailed, 4-generation family history. Significant diagnoses are listed below: Son, 16 years old, recurrent epistaxis Son, 15 years old, neurocardiogenic syncope Mother at 52 due to heart disease, history of kidney disease, diabetes mellitus, pituitary tumor, fatty liver disease Maternal aunt, hypothyroidism Maternal aunt, hypothyroidism, history of blood transfusions, uterine fibroids Maternal grandmother at 55 due to abdominal aortic aneurysm, history of nasal cancer Maternal grandfather ~60 years old, cancer in his back? Father at 55 years old, congenital heart condition, neurologic condition, had very pale and light hair and eyes The patient's maternal ancestors are of [place] descent and paternal ancestors are of descent. There is no Ashkenazi Sikhism ancestry. There is no known consanguinity. A copy of the patient's pedigree will be available under the scanned documents tab following today's visit. GENETIC COUNSELING RISK ASSESSMENT, DISCUSSION, AND SUGGESTED FOLLOW UP: Leana Tran is a 35 year old female with an extensive and longstanding history of bleeding diathesis since she was a child suggestive of a bleeding disorder as well as unilateral congenital hearing loss and chronic upper respiratory infections in childhood. Her recent labs consistently show abnormal platelet aggregation suggestive of a platelet function or qualitative platelet disorder. Platelet function disorders consist of a heterogeneous group of diseases in which patients may have normal platelet counts, but with variable bleeding symptoms. Platelet function disorders can be inherited or acquired. Inherited platelet function disorders are present at , however, in many cases, symptoms may not be apparent until later in life or after trauma with patients otherwise being largely asymptomatic. (Piter pires 2013. PubMed ID: [id number]; Saeid 2005. PubMed ID: [id number]; Saleem 2013. PubMed ID: [id number]). Conditions that can lead to acquired platelet function disorders include liver disease (Too et al. 2010. PubMed ID: [id number]), uremia (Hamlet and Bobby. 1998. PubMed ID: [id number]), myeloproliferative disorders (Aisha et al. 2016. PubMed ID: [id number]), and diabetes mellitus (Steven et al. 2004. PubMed ID: [id number]). In addition, use of aspirin and other medications are some of the most common causes of platelet dysfunction. Defects in platelet function include problems with aggregation/coagulation, adhesion and secretion from platelet storage organelles (Bradley et al. 2012. PubMed ID: [id number]). In severe cases, bleeding episodes can be life-threatening due to intracranial hemorrhage, massive gastrointestinal or genitourinary bleeding. Consequently, accurate diagnosis of an inherited platelet function disorder is critical for informing management. Genetic testing helps distinguish inherited platelet function disorders from acquired conditions and further specifies the disorder by identifying the genetic cause. With many factors contributing to clot formation, differential diagnosis of the various bleeding disorders can be time-intensive, labor-intensive, and difficult to interpret, especially in patients with milder symptoms. Genetic testing provides a means to examine multiple bleeding disorder genes simultaneously to quickly identify potential causes to disease. Differential diagnosis is especially helpful in employing appropriate therapies to mitigate bleeding episodes (Martha et al. 2015; Dwight et al. 2016; Caitie et al. 2016). We discussed that identification of a hereditary syndrome may help Leana's care providers tailor her medical management. It would also allow for the determination of recurrence risks for family members. After considering the risks, benefits, and limitations, Leana chose to pursue and provided informed consent for the following testing: bleeding disorder panel through [employer]. The bleeding disorder panel includes ABCG5, ABCG8, ACTN1, AOPXUD24, ANKRD26, ANO6, AP3B1, DNVW1L4, CD36, CYCS, DTNBP1, F10, F11, F12, F13A1, F13B, F2, F5, F7, F8, F9, FGA, FGB, FGG, FLI1, FLNA, GATA1, GFI1B, GGCX, GP1BA, GP1BB, GP6, GP9, HOXA11, HPS1, HPS3, HPS4, HPS5, HPS6, ITGA2, ITGA2B, ITGB3, LMAN1, MASTL, MCFD2, MPL, MYH9, NBEAL2, P2RX1, P2RY12, PLAU, PRKACG, RUNX1, SERPINE1, SERPINF2, TBXA2R, TBXAS1, TUBB1, VKORC1, VWF, and WAS. We discussed that an NGS panel can sometimes result in: A negative or non-diagnostic result that does not identify an underlying genetic cause for the patient's condition An uncertain result (variant of uncertain significance) for which the lab has limited information for interpretation and which will not lead to changes in management An unexpected finding which may or may not be related to the presenting phenotype Per the patient's request, we will contact her by telephone to discuss these results. A follow up genetic counseling visit will be scheduled if requested. The patient was seen for a total of 30 minutes, greater than 50% of which was spent [id number] counseling. This plan is being carried out under the oversight of Dr. Jose Craig. This note will also be sent to the referring provider via the electronic medical record. Juan Ramon Briones MS, [facility] Licensed, Certified Genetic Counselor EPIC CC: Dr. Yan Craig documented in this encounter [facility] 07-14-2021 History of Present illness Narrative Images from the original note were not included. Otolaryngology - Head and Neck Surgery Head and Neck [place], [facility] NOTE Chief Complaint: Patient presents with: New Patient: Fluid in sinuses History of Present Illness: Leana Tran is a 35 year old female who presents today in consult at the request of Self for Patient presents with: New Patient: Fluid in sinuses Patient was seen today for concerns of fluid in the sinuses. She was recently in emergency room for notable headaches. As part of her work-up she had a CT scan that captured part of the sinuses and is here for follow-up in that regard. She describes her self as having multiple history of allergies. She also describes having multiple anaphylaxis but has not been able to identify any sources of her allergens. Does not currently use anything in the nose. She previously used Flonase in the past but then she started getting bloody noses with it. When she was using it she was noted to tip towards the nasal septum. Typically does not have rhinorrhea. Gets facial pressure is more on the right side of the head that goes down into her teeth. ALLERGIES ALLERGIES Allergen Reactions Iodides Unknown Iodinated Contrast * Anaphylaxis Iv Contrast [Contra* Anaphylaxis Aleve [Naproxen] Swelling Aspirin Unknown Ceclor [Cefaclor] Anaphylaxis Ceftin [Cefuroxime * Unknown Clindamycin Swelling, Shortness of Breath Erythromycin Swelling, Shortness of Breath Eucalyptus Anaphylaxis Gatifloxacin Diarrhea Latex Swelling, Itching Skin cracks and bleeds Lavender (Lavandula* Anaphylaxis Metronidazole Unknown Necon [Norethindron* Unknown Penicillins Rash, Itching Sulfa (Sulfonamide * Swelling, Shortness of Breath Sulfamethoxazole-Tr* Unknown Vioxx [Rofecoxib] Unknown Froylan 28 [Drospirenon* Unknown Levofloxacin Rash MEDICATIONS Current Outpatient Medications Medication Sig zonisamide (ZONEGRAN) 100 mg capsule Take 1 capsule by mouth once daily. rimegepant (NURTEC ODT) 75 mg disintegrating tablet Take 1 tablet by mouth once daily as needed. No more than 1 dose in 24 hours. prazosin (MINIPRESS) 5 mg cap onabotulinum toxin type A (BOTOX) 100 unit solr by INJECTION(UNSPECIFIED PARENTERAL ROUTES) route every 3 months. mecobalamin, vitamin B12, 1,000 mcg ODT once daily. VITAMIN D-3 125 mcg (5,000 unit) tab Take 5,000 Units by mouth once daily. SITagliptin (JANUVIA) 100 mg tablet Take 100 mg by mouth as needed. EPINEPHrine 0.1 mg/0.1 mL AutoInjector as needed. budesonide-formoterol (SYMBICORT) 160-4.5 mcg/actuation inhaler Inhale 2 Puffs as instructed as needed. lamoTRIgine (LAMICTAL) 150 mg tablet Take 150 mg by mouth daily at bedtime. sertraline (ZOLOFT) 100 mg tablet Take 200 mg by mouth daily at bedtime. levothyroxine (SYNTHROID) 112 mcg tablet Take 112 mcg by mouth daily before breakfast. Takes 1.5 tablets on Wednesdays ALBUTEROL INHALATION Inhale as instructed as needed. montelukast (SINGULAIR) 10 mg tablet Take 10 mg by mouth once daily. fluticasone (FLONASE) 50 mcg/actuation nasal spray Use 1 [place] in each nostril twice daily. zolpidem (AMBIEN) 5 mg tablet Take 5 mg by mouth as needed. No current facility-administered medications for this visit. Past Medical History 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 Pseudotumor cerebri PTSD (post-traumatic stress disorder) SURGICAL HISTORY PAST SURGICAL HISTORY Procedure Laterality Date ABDOMINAL SURGERY HX 2010 exploration APPENDECTOMY 2008 DELIVERY ONLY HYSTERECTOMY NOSE SURGERY HX 2011 REMOVAL GALLBLADDER TUBAL LIGATION HX SOCIAL HISTORY Social History Tobacco Use Smoking status: Never Smoker Smokeless tobacco: Never Used Vaping Use Vaping Use: Never used Substance Use Topics Alcohol use: Yes Comment: rarely uses alcohol Drug use: Not Currently FAMILY HISTORY FAMILY HISTORY Problem Relation Age of Onset Diabetes Mother Hypertension Mother Hypertension Father Diabetes Father Heart disease Father No Ocular Disease Other Review of Systems: 14 point review of systems was otherwise normal unless indicated as such in HPI. PHYSICAL EXAM: Vitals: BP 128/75 Pulse 74 LMP 2015 SpO2 98% General: Well-developed and well-nourished in appearance. Skin: No rashes or concerning lesions on the visible portions of the skin. Eyes: Extraocular movements intact. Visual olivares grossly normal. Ears: Pinna are normal in shape and position. Right external canal is patent without cerumen.. Small area of myringosclerosis present Right tympanic membranes is intact without perforation; healthy appearing air filled middle ear space. without evidence of cholesteatoma. Left external canal is patent without cerumen.. Small area of myringosclerosis present Left tympanic membranes is intact without perforation; healthy appearing air filled middle ear space. without evidence of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 coordinator in her local area to wear compression stockings and abdominal binder. She did not feel comfortable while wearing these Meds: none Review of Systems Constitutional: Positive for appetite change. Negative for fever and recent unintentional weight loss. Skin: Negative for rash. Eyes: Positive for visual disturbance and blurred vision. Relevant Work Up To Date Autonomic Reflex with Tilt 06/14/2021 - During 10 minutes of 60 degree head-up tilt, heart rate and blood pressure responses are normal. The maximum heart rate increase is 18 bpm (normal less than 30 bpm) at the 2nd minute of tilt. The systolic blood pressure increases by 18 mmHg at minute 4 of the tilt. There is no reduction in diastolic blood pressure. The patient complained of weak legs, nausea, and dizziness during the tilt. This is a normal cardiovascular autonomic test panel. There is no evidence of a significant cardiovagal or cardiovascular adrenergic abnormality. Specifically, there is no evidence of orthostatic tachycardia or hypotension. MRI 06/16/2021 Trace fluid in the left mastoid air cells, small likely retention cysts in the maxillary and right sphenoid sinuses, and trace right frontal and bilateral ethmoid sinus mucosal thickening. Otherwise, unremarkable MRI examination of the brain with and without contrast. General Examination: BP 147/70 (BP Site: Left Arm, BP Position: Sitting) Pulse 96 Temp 36.7 C (98.1 F) Resp 20 Ht 162.6 cm (5' 4 ) Wt 95.7 kg (211 lb) LMP 2015 SpO2 99% BMI 36.22 kg/m 06/27/21 1053 06/27/21 1130 06/27/21 1145 BP: 129/83 132/72 147/70 BP Site: Left Arm Left Arm BP Position: Sitting Sitting Pulse: 74 85 96 Resp: 20 Temp: 36.7 C (98.1 F) SpO2: 99% 99% Weight: 95.7 kg (211 lb) Height: 162.6 cm (5' 4 ) Neurological Examination: Cognition The patient is drowsy and oriented times four Intermittently engaged in assessment Able to provide detailed medical hx Speech Speech is slow but not slurred. Low volume, and clarity; no dysarthria Content and syntax are coherent Comprehension: Able to follow several step commands Cranial Nerves PERRLA No ptosis Visual olivares are full to confrontation Extraocular movements are intact - smooth saccades and pursuits; No nystagmus Facial motor exam is strong and symmetric Soft palate elevation is symmetric, tongue is in midline, no tongue fasciculation. Trapezius Strength is symmetric, graded 5/5 Tone and Bulk Tone and bulk is normal and preserved bilaterally of arms Tone and bulk is normal and preserved bilaterally of legs No apparent muscle atrophy No pes cavus or hammer toes Strength Draw Frame Runner, push/pull is equal. No drift Movement/Coordination Continuous dance-like movement of legs and torso Gait Unable to stand without upper body assistance. Slow station and stride. No festination or retropulsion. Gait is bizarre and cautious. Romberg's sign is absent. Drowsy, intermittently engaged, facial flushing noted. Neurological Exam Assessment & Plan 06/27/2021 - Neuromuscular, Peter Knight APRN.FACILITY MANAGER ASSESSMENT Patient presents today as follow up visit with new complaints of worsening headache, stating this is among the worse headaches of her life, with blurred vision, nausea, and hot flashes. She exhibited a chorea-like movements of the lower extremities and torso. During the physical exam, she became nauseated and had to lay down. She was intermittently interactive and drowsy. I called a [facility] call at this time. Her HR, temp, and SpO2% remained WNL throughout exam but BP continued to gradually rise. There was no facial droop, vice president of nursing and push/pulls were equal in strength, PERRL, and no drift. Per my recommendation and recommendation of the [facility] providers, she was sent to the ED via medical stretcher under the supervision of the YOSELYN. She remained awake and oriented throughout our encounter. PLAN ED evaluation for worst headache of her life with associated neuro deficit. 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 Encounter Diagnosis ICD-10-CM 1. Worsening headaches R51.9 2. 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 Muscle spasms of lower extremity, unspecified laterality M62.838 CK CREATINE KINASE FERRITIN BLD COPPER, SERUM/PLASMA FREE CERULOPLASMIN BLD VITAMIN E/TOCOPHEROL CONSULT TO NEUROLOGY 4. 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 Data Review Objective Current Outpatient Medications Medication Sig onabotulinum toxin type A (BOTOX) 100 unit solr by INJECTION(UNSPECIFIED PARENTERAL ROUTES) route every 3 months. zolpidem (AMBIEN) 5 mg tablet Take 5 mg by mouth as needed. mecobalamin, vitamin B12, 1,000 mcg ODT once daily. VITAMIN D-3 125 mcg (5,000 unit) tab Take 5,000 Units by mouth once daily. SITagliptin (JANUVIA) 100 mg tablet Take 100 mg by mouth as needed. zonisamide (ZONEGRAN) 100 mg capsule Take 1 capsule by mouth once daily. rimegepant (NURTEC ODT) 75 mg disintegrating tablet Take 1 tablet by mouth once daily as needed. EPINEPHrine 0.1 mg/0.1 mL AutoInjector as needed. budesonide-formoterol (SYMBICORT) 160-4.5 mcg/actuation inhaler Inhale 2 Puffs as instructed as needed. lamoTRIgine (LAMICTAL) 150 mg tablet Take 150 mg by mouth daily at bedtime. sertraline (ZOLOFT) 100 mg tablet Take 200 mg by mouth daily at bedtime. levothyroxine (SYNTHROID) 112 mcg tablet Take 112 mcg by mouth daily before breakfast. Takes 1.5 tablets on Wednesdays ALBUTEROL INHALATION Inhale as instructed as needed. montelukast (SINGULAIR) 10 mg tablet Take 10 mg by mouth once daily. doxycycline monohydrate (MONODOX) 100 mg capsule TAKE 1 CAPSULE BY MOUTH TWICE A DAY FOR 10 DAYS (Patient not taking: Reported on 06/14/2021 ) fluconazole (DIFLUCAN) 150 mg tablet TAKE 1 TABLET BY MOUTH ONCE AND REPEAT IN 3 DAYS IF NEEDED lidocaine (LIDODERM) 5 % PLACE 1 PATCH TOPICALLY ON THE SKIN DAILY FOR 10 DAYS. LEAVE ON 12 HOURS, THEN LEAVE OFF 12 HOURS. (Patient not taking: PLACE 1 PATCH TOPICALLY ON THE SKIN DAILY FOR 10 DAYS. LEAVE ON 12 HOURS, THEN LEAVE OFF 12 HOURS.) No current facility-administered medications for this visit. Facility-Administered Medications Ordered in Other Visits Medication Dose Route Frequency NaCl 0.9% iv flush bag 20 mL INTRAVENOUS PRN ACTIVE PROBLEM LIST Coagulopathy (Hcc) Arachnoid Cyst of Pituitary Gland Symptomatic Bradycardia Blood Pressure Instability Subjective Muscle Weakness Malaise and Fatigue Transient Diplopia Orthostatic Lightheadedness Screening for Endocrine Disorder Primary Hypothyroidism PAST SURGICAL HISTORY Procedure Laterality Date ABDOMINAL SURGERY HX 2009 exploration APPENDECTOMY 2008 DELIVERY ONLY HYSTERECTOMY NOSE SURGERY HX 2011 REMOVAL GALLBLADDER TUBAL LIGATION HX Social History Tobacco Use Smoking status: Never Smoker Smokeless tobacco: Never Used Vaping Use Vaping Use: Never used Substance Use Topics Alcohol use: Yes Comment: rarely uses alcohol Drug use: Not Currently FAMILY HISTORY Problem Relation Age of Onset Diabetes Mother Hypertension Mother Hypertension Father Diabetes Father Heart disease Father No Ocular Disease Other I spent a total of 70 minutes on the date of the service which included preparing to see the patient, [id number] patient care, completing clinical documentation, obtaining and/or reviewing separately obtained history, performing a medically appropriate examination, counseling and educating the patient/family/caregiver and ordering medications, tests, or procedures. Peter Knight APRN.MACY documented in this encounter [facility] 06-16-2021 [facility] Notes I spoke with the patient regarding the blood work. Her tests are not diagnostic for any specific inhibitor deficiency and we will need more testing to find the etiology. She has her surgery planned for Sunday, June 20, 2021. She is cleared to undergo the surgery. In light of an unclear cause of bleeding issues, I have recommended she get 2 units FFP prior to the planned procedure. This intervention has helped her in the past as well. Patient agreeable with the plan. The clearance document has been signed and will need to be faxed over to Dr. Rajinder Collins' office tomorrow. Yan Bass MD documented in this encounter [facility] 06-14-2021 [facility] Pt questions if MG labs are back. (shows seen' in [facility]) Negative results. Also, stopped doxycycline she was taking for sinus infection d/t new sx of bilat LE numbness, rt foot spasms, sensation of heavy body. Continues to have bilat leg spasms and numbness. BP 130-140/70-90. Questions if d/t med or new neuro issue. Leighann Alcazar RN documented in this encounter [facility] 06-14-2021 History of Present illness Narrative Images from the original note were not included. [facility] CONSULT - NEW VISIT REASON FOR CONSULTATION: Blood pressure fluctuation query adrenal insufficiency REFERRING PHYSICIAN: Peter Knight from neurology. My recommendations will be sent to the referring physician/provider either by letter or shared electronic medical record. HISTORY Ms. Leana Tran is a 35 year old very pleasant female with a history of primary hypothyroidism taking levothyroxine, who comes in here for evaluation of possible adrenal insufficiency. #1 Fluctuation of blood pressure, query adrenal insufficiency #2 history of anaphylactic reaction requiring prednisone She was referred from neurology for evaluation of possible adrenal insufficiency. She presented with intermittent high blood pressure and low blood pressure with bradycardia. She has a history of anaphylactic reaction about 3-4 times since January of last year. Each episode, she requires intravenous and oral glucocorticoid. Most recently, she finished a 5-day course of prednisone 40 mg daily until June 09. She denies usage of any other glucocorticoid. She has not used her inhaler Symbicort for few months. She does not use opiate medication for pain. She feels nauseous but still have good appetite. Says sometimes feels dizzy when she stands up but has never had a syncope. #3 primary hypothyroidism taking levothyroxine She is on levothyroxine 112 mcg 7.5 tablets/week. She is following a local mulcher operator who adjusted dose for her. Most recent TSH in May was normal. 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 Pseudotumor cerebri PTSD (post-traumatic stress disorder) PAST SURGICAL HISTORY Procedure Laterality Date ABDOMINAL SURGERY HX 2010 exploration APPENDECTOMY 2008 DELIVERY ONLY HYSTERECTOMY NOSE SURGERY HX 2011 REMOVAL GALLBLADDER TUBAL LIGATION HX Social History Tobacco Use Smoking status: Never Smoker Smokeless tobacco: Never Used Vaping Use Vaping Use: Never used Substance Use Topics Alcohol use: Yes Comment: rarely uses alcohol Drug use: Not Currently FAMILY HISTORY Problem Relation Age of Onset Diabetes Mother Hypertension Mother Hypertension Father Diabetes Father Heart disease Father No Ocular Disease Other Current Outpatient Medications Medication Sig onabotulinum toxin type A (BOTOX) 100 unit solr by INJECTION(UNSPECIFIED PARENTERAL ROUTES) route every 3 months. fluconazole (DIFLUCAN) 150 mg tablet TAKE 1 TABLET BY MOUTH ONCE AND REPEAT IN 3 DAYS IF NEEDED zolpidem (AMBIEN) 5 mg tablet Take 5 mg by mouth as needed. mecobalamin, vitamin B12, 1,000 mcg ODT once daily. VITAMIN D-3 125 mcg (5,000 unit) tab Take 5,000 Units by mouth once daily. SITagliptin (JANUVIA) 100 mg tablet Take 100 mg by mouth as needed. zonisamide (ZONEGRAN) 100 mg capsule Take 1 capsule by mouth once daily. rimegepant (NURTEC ODT) 75 mg disintegrating tablet Take 1 tablet by mouth once daily as needed. EPINEPHrine 0.1 mg/0.1 mL AutoInjector as needed. budesonide-formoterol (SYMBICORT) 160-4.5 mcg/actuation inhaler Inhale 2 Puffs as instructed as needed. lamoTRIgine (LAMICTAL) 150 mg tablet Take 150 mg by mouth daily at bedtime. sertraline (ZOLOFT) 100 mg tablet Take 200 mg by mouth daily at bedtime. levothyroxine (SYNTHROID) 112 mcg tablet Take 112 mcg by mouth daily before breakfast. Takes 1.5 tablets on Wednesdays ALBUTEROL INHALATION Inhale as instructed as needed. montelukast (SINGULAIR) 10 mg tablet Take 10 mg by mouth once daily. doxycycline monohydrate (MONODOX) 100 mg capsule TAKE 1 CAPSULE BY MOUTH TWICE A DAY FOR 10 DAYS (Patient not taking: Reported on 06/14/2021 ) lidocaine (LIDODERM) 5 % PLACE 1 PATCH TOPICALLY ON THE SKIN DAILY FOR 10 DAYS. LEAVE ON 12 HOURS, THEN LEAVE OFF 12 HOURS. (Patient not taking: PLACE 1 PATCH TOPICALLY ON THE SKIN DAILY FOR 10 DAYS. LEAVE ON 12 HOURS, THEN LEAVE OFF 12 HOURS.) No current facility-administered medications for this visit. ALLERGIES Allergen Reactions Iodides Unknown Iodinated Contrast * Anaphylaxis Iv Contrast [Contra* Anaphylaxis Aleve [Naproxen] Swelling Aspirin Unknown Ceclor [Cefaclor] Anaphylaxis Ceftin [Cefuroxime * Unknown Clindamycin Swelling, Shortness of Breath Erythromycin Swelling, Shortness of Breath Eucalyptus Anaphylaxis Gatifloxacin Diarrhea Latex Swelling, Itching Skin cracks and bleeds Lavender (Lavandula* Anaphylaxis Metronidazole Unknown Necon [Norethindron* Unknown Penicillins Rash, Itching Sulfa (Sulfonamide * Swelling, Shortness of Breath Sulfamethoxazole-Tr* Unknown Vioxx [Rofecoxib] Unknown Froylan 28 [Drospirenon* Unknown Levofloxacin Rash REVIEW OF SYSTEMS: Negative except as above. PHYSICAL EXAMINATION BP 126/80 (BP Site: Left Arm, BP Position: Sitting) Pulse 71 Ht 162.6 cm (5' 4 ) Wt 96.7 kg (213 lb 1.6 oz) LMP 2015 BMI 36.58 kg/m Body mass index is 36.58 kg/m . GENERAL: not in distress, well-appearing HEENT: anicteric sclerae, non-injected conjunctivae NECK: supple, thyroid no palpable nodules, no lymphadenopathy HEART: regular rate and rhythm, no murmur CHEST: no lesions, clear to auscultation GASTROINTESTINAL: central adiposity. EXTREMITIES: no edema, no tremors MUSCULOSKELETAL: no gross deformities, no fasciculations SKIN: dry, no cyanosis NEUROLOGIC: alert, oriented LAB TEST Reviewed ASSESSMENT/PLAN (Z13.29) Screening for endocrine disorder (primary encounter diagnosis) (E03.9) Primary hypothyroidism I do not see a obvious risk factor for adrenal insufficiency. She normally wakes up around 2-3 AM. The fact that her last usage of prednisone was less than a week ago, we would have to wait for 2 weeks before checking baseline ACTH, morning cortisol and a DHEA-sulfate. She will probably do it with her local providers once she is ready. If test results are negative for adrenal insufficiency, she should continue to see neurology/cardiology for possible POTS. Her TSH is at target with current dose of levothyroxine and I recommend her to continue the same. Follow-up: After work-up Contact us sooner than recommended follow-up if with issues/concerns. Follow-up with primary care provider and other specialists for issues not explained by the condition that the patient is seeing me for. Orders Placed This Encounter Adrenocorticotropic Hormone Standing Status: Future Standing Expiration Date: 08/14/2021 Cortisol, Serum Standing Status: Future Standing Expiration Date: 08/14/2021 Scheduling Instructions: In preparation for this test, do not take multivitamins or dietary supplements containing biotin (vitamin B7) for at least 12 hours. Biotin is commonly found in hair, skin, and nail supplements and multivitamins. Tell your doctor if you take supplements containing biotin as part of your medication history. DHEA-S BLD Standing Status: Future Standing Expiration Date: 08/14/2021 Scheduling Instructions: In preparation for this test, do not take multivitamins or dietary supplements containing biotin (vitamin B7) for at least 12 hours. Biotin is commonly found in hair, skin, and nail supplements and multivitamins. Tell your doctor if you take supplements containing biotin as part of your medication history. I spent a total of 40 minutes on the date of the service which included preparing to see the patient, [id number] patient care, completing clinical documentation, obtaining and/or reviewing separately obtained history, performing a medically appropriate examination, counseling and educating the patient/family/caregiver, ordering medications, tests, or procedures. This note was dictated using [employer] speech recognition software and may contain some errors that were a result of the program not accurately transcribing what was dictated. Jackelyn Marques M.D., M.Sc. Attending [facility] [place], [facility] Office: Appointments: documented in this encounter [facility] 06-14-2021 Nurse Note Thank you for choosing the [facility] Department of Endocrinology, Diabetes and Metabolism. Did you know that you need to call 48 hours in advance of your scheduled visit, if you are unable to make your appointment? The [facility] [place] thanks you for your commitment, because patients not showing to their appointment results in a lost opportunity for patients to receive world class health care at the [facility]. To Cancel an appointment, please choose one of the following: - Call the Appointment Call Center at [phone] - From [employer], Go to Appointments Cancel Appts If cancelling, consider your need to reschedule to prevent further delays in your care. To Schedule an appointment, please choose one of the following: - Call the Appointment Call Center at [phone] - From [employer], Go to Appointments Request an Appt documented in this encounter [facility] 06-14-2021 History of Present illness Narrative UNIVERSAL PROTOCOL / SAFETY CHECKLIST Procedure to be Performed: NEURO CARDIO AUTONOMIC REFLEX TEST WITH TILT Sign In: A Moment of CARE was completed. Personnel directly involved with the procedure wore the appropriate PPE (Personal Protective Equipment). Patient/Surrogate Stated/Verified: PATIENT VERIFIED(optional for EMERGENT procedures): Patient name, Date of , Relevant allergies and The intended procedure Time Out Communication: Intended patient and procedure match the source documents. No correct side/site applicable for marking and visibility. No medications required for procedure. Sign Out: SIGN OUT (optional for EMERGENT procedures): Post-procedure follow-up management communicated and Plan of Care Visit completed when applicable. Haily Mnotana Emg Tech documented in this encounter [facility] 06-10-2021 History of Present illness Narrative HEMATOLOGY INITIAL CONSULTATION June 10, 2021 REFERRAL REQUESTED BY: Rajinder Collins PCP and other physicians involved in patient's care: Cas Dowell (PCP), Rajinder Collins (surgery), Rubens Tim (ObGyn), Armando Pederson, REASON FOR CONSULTATION: Factor deficiency, surgical clearance HEMATOLOGICAL HISTORY: Patient has an extensive and longstanding history of bleeding issues. In 2008, she was seen by Dr. Shirley and was noted to have an elevated PTT of 36 seconds. This corrected by addition of FFP. 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 She reportedly tested negative for von Willebrand disease. Some of these labs have been scanned in our EMR (2011). Previous bleeding history includes menorrhagia (endometrial ablation in 2014 for which she needed FFP and hysterectomy in 2019 [unclear whether she got FFP]), epistaxis since childhood (resolved after sinus surgery in 2010), gum bleeding on a daily basis with minimal trauma, and a recent episode of bright red blood per rectum in March (no EGD or colonoscopy) 2. Previous dental procedures include cavity fillings. It is unclear whether she had any bleeding issues after that procedure. She has had 2 normal vaginal deliveries with hemorrhage but patient does not remember if any medical or surgical intervention was done. She had a C- section during her third and reports that the surgery took longer than anticipated. HPI: This is a 35-year-old female who comes to the clinic for surgical clearance prior to an elective hernia repair scheduled for June 20, 2021. She has a history of factor deficiency that was diagnosed in 2008. Her hematological history is as detailed above. She reports previous use of FFP but cannot recollect RBC transfusions. More recently, patient presented to the ED in May 2021 for left-sided chest pain and right lower quadrant pain. CT abdomen did not show any acute pathology except fatty liver. Today, she does not have any major symptoms to endorse. Her most recent bleeding episode was an episode of bright red blood per rectum 2 months back for which she did not seek medical attention. Recent CBC values in Care Everywhere are notable for a normal CBC and CMP. PT and PTT from 2011 were normal. Other scans reports show an elevated PTT at 36 seconds which corrected after addition of FFP in 2008. She she has significant neurologic and cardiac issues and is being worked up for myasthenia gravis and autonomic dysfunction. She has appointments to see endocrinology, neurology and cardiology at [facility] next week. 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 Patient is adopted and does not know her family history well. She has 3 boys who are relatively healthy. Her oldest son (age 16 years) has similar bleeding symptoms including easy gum bleeding and epistaxis as the patient. No substance abuse. 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 She has had multiple surgical, obstetric, gynecologic, and dental procedures in the past. Some of these procedures have been associated with postoperative bleeding complications. Patient also has multiple bleeding issues such as easy gum bleeding on a regular basis. This has not resulted in blood loss anemia. I discussed with the patient the importance of obtaining the correct diagnosis. Her oldest son also has symptoms suggestive of the same bleeding disorder. Patient is not on antiplatelet or anticoagulants. I recommended a complete bleeding disorder work-up including PT, PTT, mixing studies, factor levels, von Willebrand panel, and platelet function studies. Some of the studies will likely not be resulted prior to a surgical procedure. Based on her previous surgical experiences, any surgical bleeding can be minimized by using 2 units FFP prior to the procedure and 2 units FFP postoperatively. I will see the patient back in 3 weeks to discuss the above results and next steps, if any. Yan Bass MD I spent a total of 60 minutes on the date of the service which included preparing to see the patient, [id number] patient care, completing clinical documentation, obtaining and/or reviewing separately obtained history, performing a medically appropriate examination, counseling and educating the patient/family/caregiver, ordering medications, tests, or procedures, independently interpreting results (not separately reported) and communicating results to the patient/family/caregiver. CC: Peng Manley documented in this encounter [facility] 05-31-2021 Miscellaneo us Notes Outside medical records received and scanned in for review. documented in this encounter [facility] 05-20-2021 Hospital Discharge instruction s Shanna Rivas APRN - CNP - 05/20/2021 Increase your fluid intake. Eat foods that are low in bulk to avoid over extension of your bowel. Follow-up with PCP for reevaluation in the next couple of days. Contact your surgeon to see if you can have your surgery moved up. Return to the ER for increased pain, fevers, difficulty breathing, vomiting or new or worsening signs or symptoms. The following attachments cannot be sent through Care Everywhere.Chest Pain ([place]an)Abdominal Pain ([place]an)documented in this encounter [facility] Phone: 04-16-2021 Hospital Discharge instruction s Shanna Rivas APRN - CNP - 04/16/2021 Increase your fluid intake. Follow-up with both PCP and DYE WEIGHER HELPER for reevaluation. Take Reglan as prescribed. Talk to your DYE WEIGHER HELPER about the left ovarian cyst seen on CT as well as possible mild fluid in your fallopian tube. Take all medications as prescribed. Return to the ER for increased pain, fevers, difficulty breathing, vomiting or new or worsening signs or symptoms. The following attachments cannot be sent through Care Everywhere.Ovarian Cyst: Functional ([place]izean)Nausea and Vomiting ([place]an)documented in this encounter [facility] Phone: 11-01-2020 Hospital Discharge instruction s Araseli Barrett MD - 11/01/2020 Continue current medications as prescribed. Tylenol as needed and directed for fever. Use Tessalon Perles every 8 hours as needed for cough. Make sure you stay well-hydrated. Lie on your belly as often as possible while at home. Seek medical attention if you develop any worsening symptoms or any acute concerns The following attachments cannot be sent through Care Everywhere.Coronavirus Disease (COVID-19): General Info ([place]an)documented in this encounter [facility] Phone: 09-06-2020 Note HNO ID: [id number] Author: Lis Moraes MD Service: ? Author Type: Physician Type: Procedures Filed: 09/06/2020 3:10 PM Note Text: Consent:she verbally consented to use the same one from the first block, 06/08/2016 UNIVERSAL PROTOCOL / SAFETY CHECKLIST Procedure to be Performed: Bilateral Occipital Nerve Block Sign In: A Moment of CARE was completed. Personnel directly involved with the procedure wore the appropriate PPE (Personal Protective Equipment). Patient/Surrogate Stated/Verified: PATIENT VERIFIED(optional for EMERGENT procedures): Patient name, Date of , Relevant allergies and The intended procedure Time Out Communication: Intended patient and procedure match the source documents. Consent documented and matches the intended procedure. No relevant labs, photos, and/or imaging studies were applicable for review. No correct side/site applicable for marking and visibility. Medications required for procedure verified. No fire risk assessment and interventions applicable. No implant(s) inserted. Sign Out: SIGN OUT (optional for EMERGENT procedures): No specimen collected. No instruments, equipment or retained foreign bodies applicable. Post-procedure follow-up management communicated and Plan of Care Visit completed when applicable. Bilateral Occipital Nerve Block: Dx: Occipital neuralgia Consent: In Epic Procedure: The patient was placed in a seated position. The site of pain and procedure were confirmed with the patient prior to starting the procedure. The patient's nuchal ridge of the occipital bone was identified and prepped with well with chlorhexidine x 3. A 25 Gauge 5/8 inch needle was advanced through the skin and subcutaneous tissues lateral to the occipital protuberance in the area of the Greater Occipital Nerve bilaterally. Aspiration for blood and CSF was negative. FOR JOSE LUIS: The needle was again repositioned 2 cm laterally. This area was injected with 1 cc of fluid after ensuring there was no obstruction or back flow of blood. A total of 4 cc of bupivacaine 0.25% mixed with 40 mg of Kenalog was injected. Needle was then removed and bleeding was nil. - Betamethasone in national shortage. She agreed to the Kenalog. - Tolerated procedure well Lis Moraes MD [facility] 09-06-2020 Note HNO ID: [id number] Author: Lis Moraes MD Service: ? Author Type: Physician Type: Progress Notes Filed: 09/06/2020 3:10 PM Note Text: PROGRESS NOTE- HEADACHE SERVICE DATE: September 06, 2020 Location: [facility] Participants: patient and provider Requesting Provider: self ASSESSMENT: - chronic daily headaches. migrainous and MOH. - occipital neuralgia - right face,arm, leg tingling/sensory loss episodes - pseudopapilledema - small intrasellar arachnoid cyst, pituitary. Not surgical. - right ear decreased hearing RECOMMENDATIONS: 1. Work up for paresthesias: - MRI brain wow contrast, to rule out demyelinating disease. 2. Bilateral occipital nerve block today, see attached procedure note 3. Migraine: - for prevention continue Zonisamide. Can be increased if SUZIE block not effective - abortive, stop use of Tylenol. Imitrex use no more than 10 days a month HPI: This is Ms. Leana Tran, last seen on 03/23/2016, this is a follow up. She says that after I did a bilateral nerve block in 2017, she did very well. Her headaches went down in frequency but most importantly in severity, 04/14. It was like that for several years. Last year, the pattern worsened. She now is having severe migraines that she treats successfully with Imitrex and moderate ones she treats with Tylenol. A new symptoms which also triggered the follow up is tingling and sensory loss. She says tingling mostly, maybe decreased sensation. Arm and leg, face every 3 days, last a few hrs to days. No trigger. Headache Description: see note from 03/23/2016 Prior Treatments: Chiropractor. Diamox helped. Topiramate for 2 months has not helped. Fioricet Sumatriptan 100 mg Maxalt 10 mg partial to no help. Lamictal for depression Toradol- for head pain, by PCP Current Medication review: 1. Imitrex- helps 2. Zonisamide 25 mg- has decreased total number of headache days by a few 3. Tylenol- 2-3 days a week Current Outpatient Medications Medication Sig - EPINEPHrine 0.1 mg/0.1 mL AutoInjector Inject as directed - REXULTI 1 mg tablet Take 1 mg by mouth once daily. - budesonide-formoterol (SYMBICORT) 160-4.5 mcg/actuation inhaler Inhale 2 Puffs as instructed. - cyclobenzaprine (FLEXERIL) 10 mg tablet cyclobenzaprine 10 mg tablet - estradiol (CLIMARA) 0.05 mg/24 hr APPLY 1 PATCH TOPICALLY TO THE SKIN ONCE PER WEEK - famotidine (PEPCID) 40 mg tablet Take 40 mg by mouth twice daily. - furosemide (LASIX) 40 mg tablet Take 40 mg by mouth. - keTORolac (TORADOL) 10 mg tablet TAKE 1 TABLET BY MOUTH FOUR TIMES A DAY NEEDED - lamoTRIgine (LAMICTAL) 150 mg tablet Take 150 mg by mouth. - lidocaine (LIDODERM) 5 % PLACE 1 PATCH TOPICALLY ON THE SKIN DAILY FOR 10 DAYS. LEAVE ON 12 HOURS, THEN LEAVE OFF 12 HOURS. - metFORMIN (GLUCOPHAGE) 500 mg tablet Take 500 mg by mouth. - ondansetron orally disintegrating (ZOFRAN ODT) 4 mg disintegrating tablet ondansetron 4 mg disintegrating tablet - SUMAtriptan (IMITREX) 100 mg tablet TAKE 1 TABLET BY MOUTH NEEDED AT ONSET OF HEADACHE. MAY REPEAT DOSE ONCE IN 2 HOURS IF NEEDED - traZODone (DESYREL) 100 mg tablet Take 100 mg by mouth. - zonisamide (ZONEGRAN) 25 mg capsule Take 50 mg by mouth. - diphenhydrAMINE (BENADRYL) 50 mg capsule Take 50 mg by mouth. - sertraline (ZOLOFT) 100 mg tablet Take 200 mg by mouth. - Cetirizine (ZYRTEC) 10 mg cap Take by mouth. - spironolactone (ALDACTONE) 50 mg tablet Take 50 mg by mouth once daily. - levothyroxine (SYNTHROID) 112 mcg tablet Take 112 mcg by mouth daily before breakfast. - ALBUTEROL INHALATION Inhale as instructed as needed. - montelukast (SINGULAIR) 10 mg tablet Take 10 mg by mouth daily at bedtime. No current facility-administered medications for this visit. PAST MEDICAL HISTORY Diagnosis Date - Arachnoid cyst of pituitary gland - Asthma - Cholelithiases - GERD (gastroesophageal reflux disease) - Hypercoagulable state (HCC) - Hypothyroid - Protein deficiency (HCC) - Pseudopapilledema of both optic discs PAST SURGICAL HISTORY Procedure Laterality Date - TUBAL LIGATION HX Social History Tobacco Use - Smoking status: Never Smoker - Smokeless tobacco: Never Used Substance Use Topics - Alcohol use: Yes Comment: rarely uses alcohol - Drug use: Not on file FAMILY HISTORY Problem Relation Age of Onset - No Ocular Disease Other Migraine or other headaches in the family: No Aneurysms in a first degree relative: No Brain tumors in the family: Mother has pituitary tumor Other neurological illness in the family: No ALLERGIES Allergen Reactions - Iv Contrast [Contra* Anaphylaxis - Aleve [Naproxen] Swelling - Aspirin Unknown - Ceclor [Cefaclor] Anaphylaxis - Ceftin [Cefuroxime * Unknown - Clindamycin Swelling, Shortness of Breath - Erythromycin Swelling, Shortness of Breath - Latex Swelling, Itching Skin cracks and bleeds - Lavender (more content not included)... [facility] Evaluation + Plan note Future Appointments Appointment Date:02/28/2022 08:30:00 AM Scheduled Provider:LORAINE RUBALCAVA PA-C Location:[facility] Appointment Type:URO Office Visit [facility] Evaluation + Plan note Future Appointments Appointment Date:08/30/2022 03:00:00 PM Scheduled Provider:LORANIE RUBALCAVA PA-C Location:[facility] Appointment Type:URO Office Visit [facility] Work Phone: Evaluation + Plan note Future Appointments Appointment Date:09/11/2023 09:00:00 AM Scheduled Provider:LORAINE RUBALCAVA PA-C Location:[facility] Appointment Type:URO Office Visit [facility] Work Phone: Evaluation note Diagnosis Strain of lumbar region, initial encounter- Primary documented in this encounter [facility] Phone: evaluation note* Diagnosis COVID-19- Primary documented in this encounter [facility] Phone: evaluation note* Diagnosis Intractable nausea and vomiting- Primary Persistent vomiting Hydrosalpinx Chronic salpingitis and oophoritis Left ovarian cyst Other and unspecified ovarian cyst documented in this encounter [facility] Phone: evaluation note* Diagnosis Chest pain, unspecified type- Primary Abdominal pain, acute, right lower quadrant Abdominal pain, right lower quadrant documented in this encounter [facility] Phone: evaluation note* Diagnosis Urticaria- Primary Urticaria, unspecified Moderate persistent asthma with exacerbation Unspecified asthma, with exacerbation documented in this encounter [facility] Phone: evaluation note* Diagnosis Coagulopathy (HCC)- Primary Other and unspecified coagulation defects [facility] Diagnosis Screening for endocrine disorder- Primary Primary hypothyroidism Unspecified hypothyroidism [facility] Diagnosis Screening for endocrine disorder- Primary [facility] Diagnosis Disorder of autonomic nervous system Unspecified disorder of autonomic nervous system documented in this encounter [facility] note* Diagnosis Spasm of muscle- Primary Acute nonspecific chest pain with low risk of coronary artery disease documented in this encounter [facility] Phone: evaluation note* Diagnosis Worsening headaches- Primary Headache Maxillary sinus cyst Other diseases of nasal cavity and sinuses Muscle spasms of lower extremity, unspecified laterality Akathisia Abnormal involuntary movements Blurred vision Other specified visual disturbances Chorea Other choreas [facility] Diagnosis Coagulopathy (HCC)- Primary Other and unspecified coagulation defects 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 [facility]* Diagnosis Screening for endocrine disorder- Primary [facility] Diagnosis Intractable chronic migraine without aura and without status migrainosus- Primary Chronic migraine without aura, with intractable migraine, so stated, without mention of status migrainosus Abnormal involuntary movement Abnormal involuntary movements [facility] Diagnosis Allergy, initial encounter- Primary Headaches [facility] Diagnosis Bleeding disorder (HCC)- Primary Unspecified hemorrhagic conditions Coagulopathy (HCC) Other and unspecified coagulation defects 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 [facility] Diagnosis Screening for endocrine disorder [facility] Diagnosis 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) Unspecified hemorrhagic conditions [facility] Diagnosis History of COVID-19- Primary Symptomatic bradycardia Other specified cardiac dysrhythmias Blood pressure instability Other abnormal clinical finding [facility] Diagnosis Angioedema, initial encounter- Primary Urticaria Urticaria, unspecified Hoarseness of voice Dysphonia Allergic rhinitis, unspecified seasonality, unspecified trigger Adverse effect of drug, initial encounter Allergic reaction to contrast material, initial encounter Adverse food reaction, initial encounter Moderate persistent asthma without complication Unspecified asthma Gastroesophageal reflux disease, unspecified whether esophagitis present documented in this encounter [facility] note* Diagnosis Screening for endocrine disorder Muscle spasms of lower extremity, unspecified laterality Akathisia Abnormal involuntary movements documented in this encounter [facility] note* Diagnosis Chronic migraine without aura, intractable, without status migrainosus- Primary documented in this encounter [facility] note* Diagnosis Depression, unspecified depression type- Primary Anxiety Anxiety state, unspecified Intractable chronic migraine without aura and without status migrainosus Chronic migraine without aura, with intractable migraine, so stated, without mention of status migrainosus Abnormal involuntary movement Abnormal involuntary movements documented in this encounter [facility] note* Diagnosis White coat syndrome with hypertension- Primary documented in this encounter [facility] note* Diagnosis Intractable chronic migraine without aura and without status migrainosus Chronic migraine without aura, with intractable migraine, so stated, without mention of status migrainosus Abnormal involuntary movement Abnormal involuntary movements documented in this encounter [facility] note* Diagnosis Chronic RLQ pain- Primary Abdominal pain, right lower quadrant Diastasis recti Diastasis of muscle documented in this encounter [facility] note* Diagnosis Chronic RLQ pain- Primary Abdominal pain, right lower quadrant documented in this encounter [facility] note* Diagnosis Symptomatic bradycardia Other specified cardiac dysrhythmias Blood pressure instability Other abnormal clinical finding History of COVID-19 documented in this encounter [facility] note* Diagnosis White coat syndrome without diagnosis of hypertension- Primary Elevated blood pressure reading without diagnosis of hypertension documented in this encounter [facility] note* Diagnosis Diffuse pain- Primary Generalized pain Decreased activity tolerance Physical deconditioning Debility, unspecified Orthostatic intolerance documented in this encounter [facility] note* Diagnosis Long COVID- Primary Diffuse pain Generalized pain Decreased activity tolerance PTSD (post-traumatic stress disorder) Posttraumatic stress disorder documented in this encounter [facility] note* Diagnosis Allergic reaction, initial encounter- Primary documented in this encounter [facility] [employer] Work Phone: evaluation note* Diagnosis Depression, unspecified depression type- Primary Anxiety Anxiety state, unspecified Abnormal involuntary movement Abnormal involuntary movements [facility]* Diagnosis 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 History of COVID-19 SOB (shortness of breath) Shortness of breath Chronic cough Cough Chest discomfort Other chest pain Palpitation Palpitations CAVANAUGH (dyspnea on exertion) Other dyspnea and respiratory abnormality Dizziness Dizziness and giddiness Near syncope Syncope and collapse Night sweats Generalized hyperhidrosis Orthopnea Anxiety Anxiety state, unspecified Myalgia Mylagia and myositis, unspecified Pain in joint, multiple sites Mass of left axilla [facility] Bone pain- Primary Disorder of bone and cartilage, unspecified Malaise and fatigue Other malaise and fatigue Lymphadenopathy Enlargement of lymph nodes [facility] Diagnosis 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 [facility]* Diagnosis History of COVID-19- Primary Post-acute sequelae of COVID-19 (PASC) SOB (shortness of breath) Shortness of breath Chronic cough Cough Chest discomfort Other chest pain Palpitation Palpitations CAVANAUGH (dyspnea on exertion) Other dyspnea and respiratory abnormality Dizziness Dizziness and giddiness Near syncope Syncope and collapse Night sweats Generalized hyperhidrosis Orthopnea Anxiety Anxiety state, unspecified Myalgia Mylagia and myositis, unspecified Pain in joint, multiple sites [facility] Diagnosis History of COVID-19 Post-acute sequelae of COVID-19 (PASC) SOB (shortness of breath) Shortness of breath Chronic cough Cough Chest discomfort Other chest pain Palpitation Palpitations CAVANAUGH (dyspnea on exertion) Other dyspnea and respiratory abnormality Dizziness Dizziness and giddiness Near syncope Syncope and collapse Night sweats Generalized hyperhidrosis Orthopnea Anxiety Anxiety state, unspecified Myalgia Mylagia and myositis, unspecified Pain in joint, multiple sites [facility] Diagnosis History of COVID-19 Post-acute sequelae of COVID-19 (PASC) SOB (shortness of breath) Shortness of breath Chronic cough Cough Chest discomfort Other chest pain Palpitation Palpitations CAVANAUGH (dyspnea on exertion) Other dyspnea and respiratory abnormality Dizziness Dizziness and giddiness Near syncope Syncope and collapse Night sweats Generalized hyperhidrosis Orthopnea Anxiety Anxiety state, unspecified Myalgia Mylagia and myositis, unspecified Pain in joint, multiple sites [facility]* Diagnosis 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 [facility] Diagnosis History of COVID-19 Post-acute sequelae of COVID-19 (PASC) SOB (shortness of breath) Shortness of breath Chronic cough Cough Chest discomfort Other chest pain Palpitation Palpitations CAVANAUGH (dyspnea on exertion) Other dyspnea and respiratory abnormality Dizziness Dizziness and giddiness Near syncope Syncope and collapse Night sweats Generalized hyperhidrosis Orthopnea Anxiety Anxiety state, unspecified Myalgia Mylagia and myositis, unspecified Pain in joint, multiple sites [facility]* Diagnosis Malaise and fatigue- Primary Other malaise and fatigue Lymphadenopathy Enlargement of lymph nodes [facility] Diagnosis Depression, unspecified depression type- Primary Anxiety Anxiety state, unspecified Abnormal involuntary movement Abnormal involuntary movements [facility] Diagnosis Chronic migraine without aura, intractable, without status migrainosus- Primary [facility]* Diagnosis Palpitations- Primary Symptomatic bradycardia Other specified cardiac dysrhythmias Orthostatic lightheadedness Dizziness and giddiness Diffuse pain Generalized pain Blood pressure instability Other abnormal clinical finding Decreased activity tolerance Orthostatic intolerance Moderate persistent asthma without complication Unspecified asthma Physical deconditioning Debility, unspecified [facility] Diagnosis Night sweats- Primary Generalized hyperhidrosis Lymphadenopathy Enlargement of lymph nodes Rash and nonspecific skin eruption Rash and other nonspecific skin eruption Allergic rhinitis, unspecified seasonality, unspecified trigger Moderate persistent asthma without complication Unspecified asthma [facility]* Diagnosis 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) Unspecified hemorrhagic conditions [facility]* Diagnosis 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 [facility]* Diagnosis Breast screening- Primary Breast screening, unspecified 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 [facility] Diagnosis KATELIN on CPAP- Primary Obstructive sleep apnea (adult) (pediatric) RLS (restless legs syndrome) Restless legs syndrome (RLS) Shift work sleep disorder Circadian rhythm sleep disorder, shift work type Sleep paralysis Sleep related movement disorder, unspecified 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 History of posttraumatic stress disorder (PTSD) Poor sleep pattern Other sleep disturbances Poor compliance with CPAP treatment Personal history of noncompliance with medical treatment, presenting hazards to health [facility] Diagnosis Breast screening- Primary Breast screening, unspecified 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 [facility]* Diagnosis Palpitations- Primary Orthostatic intolerance Symptomatic bradycardia Other specified cardiac dysrhythmias [facility]* Diagnosis Moderate persistent asthma without complication- Primary Unspecified asthma SOB (shortness of breath) Shortness of breath Post-acute sequelae of COVID-19 (PASC) [facility]* Diagnosis Migraine without aura and without status migrainosus, not intractable- Primary Migraine without aura, without mention of intractable migraine without mention of status migrainosus [facility]* Diagnosis 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) Unspecified hemorrhagic conditions [facility]* Diagnosis No-show for appointment- Primary [facility]* Diagnosis 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) Unspecified hemorrhagic conditions Coagulopathy (HCC) Other and unspecified coagulation defects [facility]* Diagnosis 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) Unspecified hemorrhagic conditions [facility] Diagnosis 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 [facility]* Diagnosis Migraine without aura and without status migrainosus, not intractable- Primary Migraine without aura, without mention of intractable migraine without mention of status migrainosus [facility]* Diagnosis 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) Unspecified hemorrhagic conditions Coagulopathy (HCC) Other and unspecified coagulation defects documented in this encounter [facility] course Narrative No data available for this section [facility] Hospital Discharge instructions* Instructions* Kody Cm MD - 06/13/2020 Please take all medications as prescribed. Please follow up with your primary care physician by calling today, or as soon as possible, for thefirst available appointment. If you do not have a primary care physician, please contact a physician or clinic listed below today to establish care. Please return to the emergency department IMMEDIATELY if you develop uncontrolled fevers, uncontrolled vomiting, change in symptoms, worsening of symptoms, or ANY other concerns. * Attachments The following attachments cannot be sent through Care Everywhere. * Strain or Sprain ([place]an) [facility]: Hospital Discharge instructions* Attachments The following attachments cannot be sent through Care Everywhere. * Chest Pain ([place]an) * Restless Legs Syndrome ([place]) [facility] Phone: progress note No data available for this section [facility] reason for referral (narrative)* Diagnostic Procedure Only (Routine) - Authorized Specialty Diagnoses / Procedures Referred By Sabas t Referred To Contact US IMAGING Diagnoses Chronic RLQ pain Procedures US SOFT TISSUE ABDOMEN US ABDOMINAL REAL TIME W/[place] [address] [place] [address] Us Imaging Referral ID Status Reason Start Date Expiration Date Visits Requested Visits Authorized [id number] Authorized Auto-Generat ed Referral 08/15/2021 09/14/2022 1 1 [facility] for referral (narrative)* Diagnostic Procedure Only (Routine) - Authorized Specialty Diagnoses / Procedures Referred By Contac t Referred To Contact US IMAGING Diagnoses Chronic RLQ pain Procedures US PELVIS LTD US PELVIC NONOBSTETRIC IMAGE DCMTN LIMITED/F/[place] [address] [place] [address] Us Imaging Referral ID Status Reason Start Date Expiration Date Visits Requested Visits Authorized [id number] Authorized Auto-Generat ed Referral 08/16/2021 09/15/2022 1 1 [facility] for referral (narrative)* Outpatient Procedure (Routine) - Closed Specialty Diagnoses / Procedures Referred By Leviac t Referred To Contact HEART [facility] [place] Diagnoses Symptomatic bradycardia Blood pressure instability History of COVID-19 Procedures ECHO ECHO TTHRC R-T 2D W/WOM-MODE COMPL SPEC&COLR D Sai Perez MD [address] [place] [address] [facility] [place] [address] [place] [address] Referral ID Status Reason Start Date Expiration Date V isits Requested Visits Authorized [id number] Closed Auto-Generate d Referral 07/21/2021 07/21/2022 1 1 [facility] for referral (narrative)* Diagnostic Procedure Only (Routine) - Pending Review Specialty Diagnoses / Procedures Referred By Leviac t Referred To Contact US IMAGING Diagnoses Post-acute sequelae of COVID-19 (PASC) Mass of left axilla Procedures US CHEST WALL/SOFT TISSUE US CHEST REAL TIME W/IMAGE DOCUMENTATION Landen Clark APRN.CNP [address] [place] [address] Us Imaging Referral ID Status Reason Start Date Expiration Date Visits Requested Visits Authorized [id number] Pending Review Auto-Generat ed Referral 09/19/2021 10/19/2022 1 1 * Outpatient Procedure (Routine) - Pending Review Specialty Diagnoses / Procedures Referred By Contac t Referred To Contact [facility] Diagnoses History of COVID-19 Post-acute sequelae of COVID-19 (PASC) SOB (shortness of breath) Chronic cough Chest discomfort Palpitation CAVANAUGH (dyspnea on exertion) Dizziness Near syncope Night sweats Orthopnea Anxiety Myalgia Pain in joint, multiple sites Procedures LUNG VOLUMES Landen Clark APRN.FACILITY MANAGER [address] [place] [address] [facility] [place] [address] [place] [address] Referral ID Status Reason Start Date Expiration Date Visits Requested Visits Authorized [id number] Pending Review Auto-Generat ed Referral 09/19/2021 10/19/2022 1 1 * Outpatient Procedure (Routine) - Pending Review Specialty Diagnoses / Procedures Referred By Contac t Referred To Contact [facility] Diagnoses History of COVID-19 Post-acute sequelae of COVID-19 (PASC) SOB (shortness of breath) Chronic cough Chest discomfort Palpitation CAVANAUGH (dyspnea on exertion) Dizziness Near syncope Night sweats Orthopnea Anxiety Myalgia Pain in joint, multiple sites Procedures SPIROMETRY - BASELINE AND POST DILATOR BRNCDILAT RSPSE SPMTRY PRE&POST-BRNCDILAT ADMN Landen Clark APRN.FACILITY MANAGER [address] [place] [address] [facility] [place] [address] [place] [address] Referral ID Status Reason Start Date Expiration Date Visits Requested Visits Authorized [id number] Pending Review Auto-Generat ed Referral 09/19/2021 10/19/2022 1 1 * Outpatient Procedure (Routine) - Pending Review Specialty Diagnoses / Procedures Referred By Contac t Referred To Contact [facility] Diagnoses History of COVID-19 Post-acute sequelae of COVID-19 (PASC) SOB (shortness of breath) Chronic cough Chest discomfort Palpitation CAVANAUGH (dyspnea on exertion) Dizziness Near syncope Night sweats Orthopnea Anxiety Myalgia Pain in joint, multiple sites Procedures SIX MINUTE WALK CARDIOPULMONARY EXERCISE STRESS Landen Clark APRN.FACILITY MANAGER [address] [place] [address] [facility] [place] [address] [place] [address] Referral ID Status Reason Start Date Expiration Date Visits Requested Visits Authorized [id number] Pending Review Auto-Generat ed Referral 09/19/2021 10/19/2022 1 1 * Outpatient Procedure (Routine) - Pending Review Specialty Diagnoses / Procedures Referred By Contac t Referred To Contact [facility] Diagnoses History of COVID-19 Post-acute sequelae of COVID-19 (PASC) SOB (shortness of breath) Chronic cough Chest discomfort Palpitation CAVANAUGH (dyspnea on exertion) Dizziness Near syncope Night sweats Orthopnea Anxiety Myalgia Pain in joint, multiple sites Procedures LUNG DIFFUSION CAPACITY (DLCO) DIFFUSING CAPACITY Landen Clark APRN.CNP [address] [place] [address] [facility] [place] [address] [place] [address] Referral ID Status Reason Start Date Expiration Date Visits Requested Visits Authorized [id number] Pending Review Auto-Generat ed Referral 09/19/2021 10/19/2022 1 1 [facility] for referral (narrative)* Outpatient Procedure (Routine) - Pending Review Specialty Diagnoses / Procedures Referred By Contac t Referred To Contact [facility] Diagnoses KATELIN on CPAP Poor compliance with CPAP treatment Procedures PAP NAP PSG (CPAP, BILEVEL, ASV) SLEEP STD REC VNTJ RESPIR ECG/HRT RATE&O2 ATTN Meena Grissom MD [address] [place] [address] [place] [address] Referral ID Status Reason Start Date Expiration Date Visits Requested Visits Authorized [id number] Pending Review Auto-Generat ed Referral 12/16/2022 1 1 [facility] for referral (narrative)* Outpatient Procedure (Routine) - Pending Review Specialty Diagnoses / Procedures Referred By Contac t Referred To [facility] Diagnoses Moderate persistent asthma without complication SOB (shortness of breath) Post-acute sequelae of COVID-19 (PASC) Procedures SPIROMETRY - BASELINE AND POST DILATOR BRNCDILAT RSPSE SPMTRY PRE&POST-BRNCDILAT ADMN Jaja Cabral PA-C [address] [place] [address] [place] [address] Referral ID Status Reason Start Date Expiration Date Visits Requested Visits Authorized [id number] Pending Review Auto-Generat ed Referral 12/06/2021 01/05/2023 1 1 * Outpatient Procedure (Routine) - Pending Review Specialty Diagnoses / Procedures Referred By Sabas harris Referred To Contact [facility] Diagnoses Moderate persistent asthma without complication SOB (shortness of breath) Post-acute sequelae of COVID-19 (PASC) Procedures NITRIC OXIDE, EXHALED NITRIC OXIDE GAS DETERMINATION Jaja Cabral PA-C [address] [place] [address] [facility] [address] [place] [address] Referral ID Status Reason Start Date Expiration Date Visits Requested Visits Authorized [id number] Pending Review Auto-Generat ed Referral 12/06/2021 01/05/2023 1 1 [facility] for visit Narrative* Outpatient Procedure (Routine) - Closed Specialty Diagnoses / Procedures Referred By Sabas harris Referred To Contact [facility] Diagnoses Symptomatic bradycardia Blood pressure instability History of COVID-19 Procedures ECHO ECHO TTHRC R-T 2D W/WOM-MODE COMPL SPEC&COLR D Sai Perez MD [address] [place] [id number] [facility] [place] [address] [place] [address] Referral ID Status Reason Start Date Expiration Date V isits Requested Visits Authorized [id number] Closed Auto-Generate d Referral 07/21/2021 07/21/2022 1 1 [facility] for visit Narrative* Outpatient Procedure (Routine) - Closed Specialty Diagnoses / Procedures Referred By Contac t Referred To Contact [facility] Diagnoses History of COVID-19 Post-acute sequelae of COVID-19 (PASC) SOB (shortness of breath) Chronic cough Chest discomfort Palpitation CAVANAUGH (dyspnea on exertion) Dizziness Near syncope Night sweats Orthopnea Anxiety Myalgia Pain in joint, multiple sites Procedures SIX MINUTE WALK CARDIOPULMONARY EXERCISE STRESS Landen Clrak APRN.MACY [address] [place] [address] [facility] [place] [address] [place] [address] Referral ID Status Reason Start Date Expiration Date V isits Requested Visits Authorized [id number] Closed Auto-Generate d Referral 09/19/2021 10/19/2022 1 1 [facility] Advance Directives No Advanced Directives Records FoundDocuments on File Type Date Recorded Patient Speech Therapist Technician Expl anation ACP-Advance Directive ACP-Power of Clinical Laboratory Assistant Latest Code Status on File Code Status Date Activated Date Inactivated Comments Full Code 12/30/2011 10:09 AM 12/31/2011 4:00 PM Documents on File Type Date Recorded Patient Speech Therapist Technician Expl anation Advance Directive(s) 05/18/2015 10:11 AM Advance Directive(s) 05/14/2015 12:11 PM Documents on File Type Date Recorded Patient Speech Therapist Technician Expl anation Advance Directive(s) 06/27/2021 1:27 PM Advance Directive(s) 05/18/2015 10:11 AM Advance Directive(s) 05/14/2015 12:11 PM Documents on File Type Date Recorded Patient Speech Therapist Technician Expl anation Advance Directive(s) 06/27/2021 1:27 PM Advance Directive(s) 05/18/2015 10:11 AM Advance Directive(s) 05/14/2015 12:11 PM Documents on File Type Date Recorded Patient Speech Therapist Technician Expl anation ACP-Advance Directive 01/12/2022 2:29 PM ACP-Power of Clinical Laboratory Assistant 01/12/2022 2:29 PM Latest Code Status on File Code Status Date Activated Date Inactivated Comments Full Code 01/08/2022 5:06 PM 01/11/2022 3:07 PM Full Code 12/30/2011 10:09 AM 12/31/2011 4:00 PM Healthcare Agents on File Name Relationship Healthcare Agent Relationship Communication Sean Tran Spouse Primary Decision Maker Summary Purpose Family History No Family History Records FoundNo Family History Records FoundNo Family History Records FoundNo Family History Records FoundNo Family History Records FoundNo Family History Records FoundNo Family History Records FoundNo Family History Records FoundNo Family History Records FoundNo Family History Records FoundNo Family History Records FoundNo Family History Records Found Reason for Referral Specialty Diagnoses / Procedures Referred By Contac t Referred To Contact Neurology Diagnoses Muscle spasms of lower extremity, unspecified laterality Akathisia Procedures CONSULT TO NEUROLOGY OFFICE/OUTPATIENT [facility] 60-74 MINUTES Peter Knight, LIO.FACILITY MANAGER [address] [place] [id number] Referral ID Status Reason Start Date Expiration Date Visits Requested Visits Authorized [id number] Authorized PCP Requested Referral 06/27/2021 06/27/2022 1 1 Specialty Diagnoses / Procedures Referred By Contac t Referred To Contact Ent - Otolaryngology Diagnoses Maxillary sinus cyst Procedures CONSULT TO ENT OFFICE/OUTPATIENT [facility] 60-74 MINUTES Peter Knight, VENEER GRADER.FACILITY MANAGER [address] [place] [address] Referral ID Status Reason Start Date Expiration Date Visits Requested Visits Authorized [id number] Authorized PCP Requested Referral 06/27/2021 06/27/2022 1 1 Specialty Diagnoses / Procedures Referred By Contac t Referred To Contact Diagnoses Coagulopathy (HCC) 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HCC) Procedures CONSULT TO MEDICAL GENETICS - GENERAL OFFICE/OUTPATIENT [facility] 60-74 MINUTES MEDICAL GENETICS COUNSELING EACH 30 MINUTES Yan Bass MD [address] [place] [address] [facility] Medicine [place] [address] [place] [address] Referral ID Status Reason Start Date Expiration Date Visits Requested Visits Authorized [id number] Authorized PCP Requested Referral Auto-Generate d Referral 07/01/2021 07/01/2022 1 1 Specialty Diagnoses / Procedures Referred By Contac t Referred To Contact Psychology Diagnoses Intractable chronic migraine without aura and without status migrainosus Abnormal involuntary movement Procedures CONSULT TO PSYCHOLOGY OFFICE/OUTPATIENT [facility] 60-74 MINUTES Tracee Mcintyre MD [address] [place] [address] Referral ID Status Reason Start Date Expiration Date Visits Requested Visits Authorized [id number] Pending Review PCP Requested Referral 07/06/2021 07/06/2022 1 1 Specialty Diagnoses / Procedures Referred By Contac t Referred To Contact [facility] Diagnoses Intractable chronic migraine without aura and without status migrainosus Abnormal involuntary movement Procedures CONSULT TO PHYSICAL THERAPY PHYSICAL THERAPY EVALUATION HIGH COMPLEX 45 MINS Tracee Mcintyre MD [address] [place] [address] [facility] [address] [address] Referral ID Status Reason Start Date Expiration Date Visits Requested Visits Authorized [id number] Pending Review Auto-Generat ed Referral 07/06/2021 07/06/2022 1 1 Specialty Diagnoses / Procedures Referred By Contac t Referred To Contact Allergy Diagnoses Allergy, initial encounter Procedures CONSULT TO ALLERGY/IMMUNOLOGY OFFICE/OUTPATIENT [facility] 60-74 MINUTES Aldo Ann MD [address] [place] [address] Referral ID Status Reason Start Date Expiration Date Visits Requested Visits Authorized [id number] Authorized PCP Requested Referral 07/14/2021 07/14/2022 1 1 Specialty Diagnoses / Procedures Referred By Contac t Referred To Contact PULM COVID RECOV [facility] Diagnoses History of COVID-19 Procedures CONSULT TO COVID RECOVER CLINIC Sai Perez MD [address] [place] [address] Pulm Covid Recov [facility] [address] [place] [address] Referral ID Status Reason Start Date Expiration Date Visits Requested Visits Authorized [id number] Authorized PCP Requested Referral 07/21/2021 07/21/2022 1 1 Specialty Diagnoses / Procedures Referred By Contac t Referred To Contact [facility] Diagnoses Symptomatic bradycardia Blood pressure instability History of COVID-19 Procedures ECHO ECHO TTHRC R-T 2D W/WOM-MODE COMPL SPEC&COLR D Sai Perez MD [address] [place] [address] [facility] [place] [facility] [address] [place] [address] Referral ID Status Reason Start Date Expiration Date Visits Requested Visits Authorized [id number] Authorized Auto-Generat ed Referral 07/21/2021 07/21/2022 1 1 Specialty Diagnoses / Procedures Referred By Contac t Referred To Contact Ent - Otolaryngology Diagnoses Hoarseness of voice Procedures CONSULT TO ENT OFFICE/OUTPATIENT [facility] MDM 60-74 MINUTES Cindy Rushing MD [address] [address] Rc Cardenas, PhD, CCC-FINANCE INTERN [address] [place] [address] Referral ID Status Reason Start Date Expiration Date Visits Requested Visits Authorized [id number] Authorized PCP Requested Referral 07/25/2021 07/25/2022 1 1 Specialty Diagnoses / Procedures Referred By Contac t Referred To Contact Diagnoses Diffuse pain Decreased activity tolerance Physical deconditioning Procedures WELLNESS CONSULT OFFICE/OUTPATIENT [facility] 60-74 MINUTES Peter Knight, LIO.FACILITY MANAGER [address] [place] [address] Referral ID Status Reason Start Date Expiration Date Visits Requested Visits Authorized [id number] Authorized PCP Requested Referral 08/23/2021 08/23/2022 1 1 Specialty Diagnoses / Procedures Referred By Contac t Referred To Contact Diagnoses Long COVID PTSD (post-traumatic stress disorder) Procedures MIND/BODY HOLISTIC PSYCHOTHERAPY OFFICE/OUTPATIENT [facility] 60-74 MINUTES Ayaka Bright MD [employer] [facility] [address] [place] [address] Referral ID Status Reason Start Date Expiration Date Visits Requested Visits Authorized [id number] Authorized PCP Requested Referral 08/30/2021 08/30/2022 1 1 Specialty Diagnoses / Procedures Referred By Contac t Referred To Contact Diagnoses Long COVID Diffuse pain Decreased activity tolerance Procedures CONSULT TO NUTRITION SERVICES AT [facility] OFFICE/OUTPATIENT [facility] 60-74 MINUTES Ayaka Bright MD [place] [facility] [address] [place] [address] Referral ID Status Reason Start Date Expiration Date Visits Requested Visits Authorized [id number] Authorized PCP Requested Referral 08/30/2021 08/30/2022 1 1 Specialty Diagnoses / Procedures Referred By Contac t Referred To Contact Diagnoses Chronic migraine without aura, intractable, without status migrainosus Procedures PROVIDER ORDERED FOLLOW UP OFFICE/OUTPATIENT [facility] 60-74 MINUTES Bhargavi Saldana PA-C [address] [place] [address] Referral ID Status Reason Start Date Expiration Date Visits Requested Visits Authorized [id number] Authorized PCP Requested Referral 10/19/2022 1 1 Specialty Diagnoses / Procedures Referred By Contac t Referred To Contact Hematology Diagnoses Lymphadenopathy Night sweats Procedures CONSULT TO HEMATOLOGY OFFICE/OUTPATIENT [facility] 60-74 MINUTES Cindy Rushing MD [address] [address] Referral ID Status Reason Start Date Expiration Date Visits Requested Visits Authorized [id number] Authorized PCP Requested Referral 10/24/2021 10/24/2022 1 1 Specialty Diagnoses / Procedures Referred By Contac t Referred To Contact Diagnoses Migraine without aura and without status migrainosus, not intractable Procedures PROVIDER ORDERED FOLLOW UP OFFICE/OUTPATIENT [facility] 60-74 MINUTES Bhargavi Saldana PA-C [address] [place] [address] Referral ID Status Reason Start Date Expiration Date Visits Requested Visits Authorized [id number] Authorized PCP Requested Referral 04/16/2022 01/16/2023 1 1 Specialty Diagnoses / Procedures Referred By Contac t Referred To Contact Cardiology Diagnoses 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) Coagulopathy (HCC) Procedures CONSULT TO CARDIOLOGY OFFICE/OUTPATIENT [facility] 60-74 MINUTES Fuentes Amaral MD [address] [place] [address] [place] [address] Referral ID Status Reason Start Date Expiration Date Visits Requested Visits Authorized [id number] Authorized PCP Requested Referral 02/16/2022 02/16/2023 1 1 Referral ID Status Reason Start Date Expiration Date Visits Requested Visits Authorized [id number] Authorized PCP Requested Referral 10/27/2022 04/26/2023 1 1 Additional Source Comments Reason for Visit (unrecogniz ed section and content) Reason Comments Back Pain onset Sunday night. States spasm pain. Cyst from T4-T7. Reason Comments Shortness of Breath pt states she tested positive for Covid Sunday Reason Comments Flank Pain Right side, 3 days a go Chest Pain Reason Comments Abdominal Pain RLQ recent diagnosis hernia on sunday Chest Pain pressure Reason Comments Received Outside Medical Records Promedi ca Reason Comments Allergic Reaction Unknown trigger, ons et LONG WINDER TENDER. Pt used epi-pen prior to arrival and reports feeling short of breath Reason Comments surgery clearence Reason Comments Adrenal Specialty Diagnoses / Procedures Referred By Contac t Referred To Contact Endocrinology Diagnoses Symptomatic bradycardia Blood pressure instability Procedures CONSULT TO ENDOCRINOLOGY OFFICE/OUTPATIENT [facility] 60-74 MINUTES Peter Knight APRN.FACILITY MANAGER [address] [place] [address] Referral ID Status Reason Start Date Expiration Date V isits Requested Visits Authorized [id number] Closed PCP Requested Referral 05/24/2021 05/24/2022 1 1 Reason Comments Orders Reason Comments Assessment Reason Comments Results Reason Comments Other Chest pressure Other feels liek lump in t hroat Reason Comments Follow Up Reason Comments Coagulopathy Reason Comments New Patient Functional Movement Disorder Reason Comments New Patient Fluid in sinuses Reason Comments Bleeding/Bruising Specialty Diagnoses / Procedures Referred By Contac t Referred To Contact Diagnoses Coagulopathy (HCC) 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HCC) Procedures CONSULT TO MEDICAL GENETICS - GENERAL OFFICE/OUTPATIENT [facility] 60-74 MINUTES MEDICAL GENETICS COUNSELING EACH 30 MINUTES Yan Bass MD [address] [place] [address] [place] [address] [facility] [place] [address] [place] [address] Referral ID Status Reason Start Date Expiration Date V isits Requested Visits Authorized [id number] Closed PCP Requested Referral Auto-Generated Referral 07/01/2021 07/01/2022 1 1 Reason Comments Coagulopathy Specialty Diagnoses / Procedures Referred By Contac t Referred To Contact Cardiology Diagnoses Symptomatic bradycardia Blood pressure instability Procedures CONSULT TO CARDIOLOGY OFFICE/OUTPATIENT [facility] 60-74 MINUTES Peter Knight APRN.CNP [address] [place] [address] Referral ID Status Reason Start Date Expiration Date V isits Requested Visits Authorized [id number] Closed PCP Requested Referral 05/24/2021 05/24/2022 1 1 Reason Comments Allergies Asthma Reason Comments Follow Up Chronic Migraine Reason Comments Consult Specialty Diagnoses / Procedures Referred By Contac t Referred To Contact Psychology Diagnoses Intractable chronic migraine without aura and without status migrainosus Abnormal involuntary movement Procedures CONSULT TO PSYCHOLOGY OFFICE/OUTPATIENT [facility] 60-74 MINUTES Tracee Mcintyre MD [address] [place] [id number] Referral ID Status Reason Start Date Expiration Date Visits Requested Visits Authorized [id number] Pending Review PCP Requested Referral 07/06/2021 07/06/2022 1 1 Reason Comments BP 24 Hour Monitor Evaluation Reason Comments PT Eval Specialty Diagnoses / Procedures Referred By Contac t Referred To Contact [facility] Diagnoses Intractable chronic migraine without aura and without status migrainosus Abnormal involuntary movement Procedures CONSULT TO PHYSICAL THERAPY PHYSICAL THERAPY EVALUATION [facility] 45 MINS Tracee Mcintyre MD [address] [place] [id number] [facility] [place] [address] [place] [address] Referral ID Status Reason Start Date Expiration Date V isits Requested Visits Authorized [id number] Authorized 02/05/2021 02/04/2022 99 99 Reason Comments Consult rt. ing hernia Reason Comments Insurance Authorization Emgality 120MG/M L syringes (migraine) Reason Comments Established Patient Follow-Up Reason Comments Results - Ct Reason Comments Covid19 Concern Specialty Diagnoses / Procedures Referred By Contac t Referred To Contact Diagnoses Diffuse pain Decreased activity tolerance Physical deconditioning Procedures WELLNESS CONSULT OFFICE/OUTPATIENT [facility] MDM 60-74 MINUTES Peter Knight APRN.FACILITY MANAGER [address] [place] [address] Referral ID Status Reason Start Date Expiration Date V isits Requested Visits Authorized [id number] Closed PCP Requested Referral 08/23/2021 08/23/2022 1 1 Reason Comments Allergic Reaction Onset prior to arriv al. Pt reports her face is burning and feels short of breath. 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 Comments Filament Shaper - Other Reason Comments New Specialty Diagnoses / Procedures Referred By Contac t Referred To Contact [facility] Diagnoses History of COVID-19 Procedures CONSULT TO [facility] Sai Perez MD [address] [place] [address] [facility] [address] [place] [address] Referral ID Status Reason Start Date Expiration Date V isits Requested Visits Authorized [id number] Closed PCP Requested Referral 07/21/2021 07/21/2022 1 1 Reason Comments Consult Patient states she w as at [facility] on 09/19/21, seen Landen Clark APRN. She states her lymph nodes were swollen at that visit. Patient states had COVID 10/2020. She states her bones feel like someone is scraping them. Patient states she will pours out sweat or is freezing symptoms started in and getting a lot worse now. Reason Comments Spirometry Specialty Diagnoses / Procedures Referred By Contac t Referred To Contact [facility] Diagnoses History of COVID-19 Post-acute sequelae of COVID-19 (PASC) SOB (shortness of breath) Chronic cough Chest discomfort Palpitation CAVANAUGH (dyspnea on exertion) Dizziness Near syncope Night sweats Orthopnea Anxiety Myalgia Pain in joint, multiple sites Procedures LUNG DIFFUSION CAPACITY (DLCO) DIFFUSING CAPACITY Landen Clark APRN.MACY [address] [place] [address] [facility] [place] [facility] [address] [place] [address] Referral ID Status Reason Start Date Expiration Date V isits Requested Visits Authorized [id number] Closed Auto-Generate d Referral 09/19/2021 10/19/2022 1 1 Specialty Diagnoses / [facility] Diagnoses History of COVID-19 Post-acute sequelae of COVID-19 (PASC) SOB (shortness of breath) Chronic cough Chest discomfort Palpitation CAVANAUGH (dyspnea on exertion) Dizziness Near syncope Night sweats Orthopnea Anxiety Myalgia Pain in joint, multiple sites Procedures SPIROMETRY - BASELINE AND POST DILATOR BRNCDILAT RSPSE SPMTRY PRE&POST-BRNCDILAT ADMN Landen Clark APRN.FACILITY MANAGER [address] [place] [address] [place] [address] Referral ID Status Reason Start Date Expiration Date V isits Requested Visits Authorized [id number] Closed Auto-Generate d Referral 09/19/2021 10/19/2022 1 1 Specialty Diagnoses / [facility] Diagnoses History of COVID-19 Post-acute sequelae of COVID-19 (PASC) SOB (shortness of breath) Chronic cough Chest discomfort Palpitation CAVANAUGH (dyspnea on exertion) Dizziness Near syncope Night sweats Orthopnea Anxiety Myalgia Pain in joint, multiple sites Procedures LUNG VOLUMES PLETHYSMOGRAPHY LUNG VOLUMES W/WO AIRWAY RESIST Landen Clark APRN.FACILITY MANAGER [address] [place] [address] [facility] [place] [address] [place] [address] [place] [address] Referral ID Status Reason Start Date Expiration Date V isits Requested Visits Authorized [id number] Closed Auto-Generate d Referral 09/21/2021 02/04/2022 1 1 Reason Comments Radio Gen A21 Reason Comments discuss test results Reason Comments Follow Up Chronic Migraine Reason Comments Palpitations Reason Comments Allergic Rhinitis Asthma Reason Comments coagulpathy Reason Comments Established Patient Reason Comments Appointment Download Pap Therapy Follow UP Reason Comments Filament Shaper - Other Download Reason Comments Sleep Apnea Reason Comments Breast screening Reason Comments Patient Update Reason Comments Follow Up Migraine Specialty Diagnoses / Procedures [facility] Referred To Contact Diagnoses Chronic migraine without aura, intractable, without status migrainosus Procedures PROVIDER ORDERED FOLLOW UP OFFICE/OUTPATIENT [facility] 60-74 MINUTES Bhargavi Saldana PA-C [address] [place] [id number] Referral ID Status Reason Start Date Expiration Date V isits Requested Visits Authorized [id number] Closed PCP Requested Referral 01/18/2022 10/19/2022 1 1 Reason Comments Appointment Download Pap Therapy Follow Up- Reason Comments No Show Reason Comments Orders Reason Comments Orders Question Reason Comments Referral Request PA for Ajovy Reason Comments Patient Update Medication Refill Co nsent Reason Comments Lab Orders Reason Comments Orders Appointment Reason Comments PAP Therapy Follow Up NOT COMPLIANT NEED S SD CHIP SENT TO DME Reason Comments Qualitive platelet disorder 1 month foll ow up Specialty Diagnoses / Procedures [facility] Referred To Contact Diagnoses Migraine without aura and without status migrainosus, not intractable Procedures PROVIDER ORDERED FOLLOW UP OFFICE/OUTPATIENT [facility] 60-74 MINUTES Bhargavi Saldana PA-C [address] [place] [id number] Referral ID Status Reason Start Date Expiration Date V isits Requested Visits Authorized [id number] Closed PCP Requested Referral 04/16/2022 01/16/2023 1 1 Reason Comments PAP Therapy Follow Up DOWNLOAD Reason Comments Qualitative platelet disorder 5 month fo llow up Ordered Prescriptions (unrec ognized section and content) Prescription Sig Dispensed Refills Start Date End Da te lidocaine (LIDODERM) 5 % Place 1 patch onto the skin daily for 10 days 12 hours on, 12 hours off. 10 patch 0 06/13/2020 06/23/2020 tiZANidine (ZANAFLEX) 4 MG tablet Take 1 tablet by mouth every 8 hours as needed (Back pain) 10 tablet 0 06/13/2020 methylPREDNISolone (MEDROL, ERMA,) 4 MG tablet Take by mouth. 1 kit 0 06/13/2020 06/19/2020 Prescription Sig Dispensed Refills Start Date End Da te albuterol (PROVENTIL) (2.5 MG/3ML) 0.083% nebulizer solution Take 3 mLs by nebulization every 6 hours as needed for Wheezing 30 each 3 11/01/2020 benzonatate (TESSALON) 100 MG capsule Take 1 capsule by mouth 3 times daily as needed for Cough 20 capsule 0 11/01/2020 11/08/2020 Prescription Sig Dispensed Refills Start Date End Da te metoclopramide (REGLAN) 10 MG tablet Take 1 tablet by mouth 3 times daily as needed (vomiting) 12 tablet 0 04/16/2021 04/28/2021 Prescription Sig Dispensed Refills Start Date End Da te HYDROcodone-acetaminophe n (NORCO) 5-325 MG per tabletIndications:Abdomi nal pain, acute, right lower quadrant Take 1 tablet by mouth every 8 hours as needed for Pain for up to 2 days. Intended supply: 3 days. Take lowest dose possible to manage pain 6 tablet 0 05/20/2021 05/22/2021 Prescription Sig Dispensed Refills Start Date End Da te famotidine (PEPCID) 20 MG tablet Take 1 tablet by mouth 2 times daily for 5 days 10 tablet 0 06/04/2021 06/09/2021 cetirizine (ZYRTEC) 10 MG tablet Take 1 tablet by mouth 2 times daily for 5 days 10 tablet 0 06/04/2021 06/09/2021 predniSONE (DELTASONE) 10 MG tablet Take 4 tablets by mouth daily for 5 days 20 tablet 0 06/04/2021 06/09/2021 EPINEPHrine (EPIPEN 2-ERMA) 0.3 MG/0.3ML SOAJ injection Inject 0.3 mLs into the muscle once as needed (severe allergic reaction) 2 each 1 06/04/2021 Prescription Sig Dispensed Refills Start Date End Da te methocarbamol (ROBAXIN) 500 MG tablet 1 to 2 pills by mouth 4 times daily as needed muscle pain/spasm 56 tablet 1 06/21/2021 Scheduled Active and Recently Administ ered Medications (unrecognized section and content) Medication Order 10/30/2020 10/31/2020 11/01/2020 acetaminophen (TYLENOL) tablet 650 mg (COMPLETED) 650 mg, Oral, ONCE, On 11/01/20 at 1430, For 1 dose, Maximum dose of acetaminophen is 4000 mg from all sources in 24 hours. 1439 (Given - Provid er: Maia Justin RN) PRN Medication Order 10/30/2020 10/31/2020 11/01/2020 benzonatate (TESSALON) capsule 100 mg 100 mg, Oral, 3 TIMES DAILY PRN, Cough, Starting on Sun11/01/20 at 1428 1439 (Given - Provid er: Maia Justin RN) Scheduled Medication Order 04/14/2021 04/15/2021 04/16/2021 0.9 % sodium chloride bolus (COMPLETED) 1,000 mL, IntraVENous, at 1,000 mL/hr, Administer over 1 Hours, ONCE, On 04/16/21 at 1945, For 1 dose 2007 (New Bag - Prov ider: Nicole Smith RN)2347 (Stopped - Provider: Nicole Smith RN) diphenhydrAMINE (BENADRYL) injection 25 mg (COMPLETED) 25 mg, IntraVENous, ONCE, On 04/16/21 at 2200, For 1 dose 2221 (Given - Provid er: Luisana Reeder RN) famotidine (PEPCID) injection 20 mg (COMPLETED) 20 mg, IntraVENous, ONCE, On 04/16/21 at 2145, For 1 dose, IV Push over minimum of 2 minutes - Dilute with 10 mL NS 2221 (Given - Provid er: Luisana Reeder RN) metoclopramide (REGLAN) injection 10 mg (COMPLETED) 10 mg, IntraVENous, ONCE, On 04/16/21 at 2200, For 1 dose, Iv piggyback plz 2221 (Given - Provid er: Luisana Reeder RN) ondansetron (ZOFRAN) injection 4 mg (COMPLETED) 4 mg, IntraVENous, ONCE, On 04/16/21 at 2030, For 1 dose 2007 (Given - Provid er: Nicole Smith RN) Scheduled Medication Order 05/18/2021 05/19/2021 05/20/2021 0.9 % sodium chloride bolus (COMPLETED) 1,000 mL, IntraVENous, at 1,000 mL/hr, Administer over 1 Hours, ONCE, On Sun05/20/21 at 1300, For 1 dose 1347 (New Bag - Prov ider: Sanaz You RN)1543 (Stopped - Provider: Ofelia Cain RN) morphine (PF) injection 2 mg (COMPLETED) 2 mg, IntraVENous, ONCE, 1 dose, On Sun05/20/21 at 1745, If oral and IV narcotics ordered, use oral first and only use IV if oral is ineffective or cannot take oral. Do Not give oral and IV within 1 hour of each other unless specifically ordered. 1815 (Given - Provid er: Sanaz You RN) Scheduled Medication Order 06/02/2021 06/03/2021 06/04/2021 albuterol (PROVENTIL) nebulizer solution 2.5 mg (COMPLETED) 2.5 mg, Nebulization, ONCE, 1 dose, On 06/04/21 at 1630, Initiate RT Bronchodilator Protocol: Yes, Children under 5 1634 (Given - Provid er: KARSTEN BenavidesP) diphenhydrAMINE (BENADRYL) injection 50 mg (COMPLETED) 50 mg, IntraVENous, ONCE, 1 dose, On 06/04/21 at 1630 1633 (Given - Provid er: Terri Painter RN) famotidine (PEPCID) 20 mg in sodium chloride (PF) 10 mL injection (COMPLETED) 20 mg, IntraVENous, ONCE, 1 dose, On 06/04/21 at 1630, Dilute with 5-10 mL 0.9% sodium chloride. Administer over 2 minutes. 1633 (Given - Provid er: Terri Painter RN) LORazepam (ATIVAN) injection 1 mg (COMPLETED) 1 mg, IntraVENous, ONCE, 1 dose, On 06/04/21 at 1715 1710 (Given - Provid er: Terri Painter RN) methylPREDNISolone sodium (SOLU-MEDROL) injection 125 mg (COMPLETED) 125 mg, IntraVENous, ONCE, On 06/04/21 at 1630, For 1 dose 1632 (Given - Provid er: Terri Painter RN) Scheduled Medication Order 06/19/2021 06/20/2021 06/21/2021 orphenadrine (NORFLEX) injection 60 mg (COMPLETED) 60 mg, IntraVENous, ONCE, 1 dose, On Sun06/21/21 at 0030 0042 (Given - Provid er: Flory León RN) Scheduled Medication Order 09/03/2021 09/04/2021 09/05/2021 diphenhydrAMINE (BENADRYL) injection 25 mg (COMPLETED) 25 mg, IntraVENous, ONCE, 1 dose, On Sun09/05/21 at 1415 1414 (Given - Provid er: Clementina Wiggins RN) EPINEPHrine (EPINEPHrine HCL) 1 mg/mL injection 0.3 mg (COMPLETED) 0.3 mg, IntraMUSCular, ONCE, 1 dose, On Sun09/05/21 at 1415 1410 (Given - Provid er: Clementina Wiggins RN) famotidine (PEPCID) 20 mg in sodium chloride (PF) 10 mL injection (COMPLETED) 20 mg, IntraVENous, ONCE, 1 dose, On Sun09/05/21 at 1415, IV Push over minimum of 2 minutes - Dilute with 10 mL NS 1416 (Given - Provid er: Clementina Wiggins RN) ipratropium-albuterol (DUONEB) nebulizer solution 1 ampule (COMPLETED) 1 ampule, Inhalation, ONCE, 1 dose, On Sun09/05/21 at 1445, Initiate RT Bronchodilator Protocol: Yes - ED protocol 1440 (Given - Provid er: Buffy Salinas RCP) methylPREDNISolone sodium (SOLU-MEDROL) injection 60 mg (COMPLETED) 60 mg, IntraVENous, ONCE, On Sun09/05/21 at 1415, For 1 dose 1415 (Given - Provid er: Clementina Wiggins RN) INFORMATION SOURCE (unrecogn ized section and content) DATE CREATED AUTHOR 03/08/2021 Dennise payton DATE CREATED AUTHOR AUTHOR'S ORGANIZ ATION 04/26/2021 [facility] DATE CREATED AUTHOR AUTHOR'S ORGANIZ ATION 07/27/2021 [facility] DATE CREATED AUTHOR AUTHOR'S ORGANIZ ATION 12/22/2021 [facility] DATE CREATED AUTHOR AUTHOR'S ORGANIZ ATION 04/07/2022 [facility] DATE CREATED AUTHOR AUTHOR'S ORGANIZ ATION 06/17/2022 [facility] DATE CREATED AUTHOR AUTHOR'S ORGANIZ ATION 10/03/2022 [facility] DATE CREATED AUTHOR AUTHOR'S ORGANIZ ATION 12/19/2022 [facility] DATE CREATED AUTHOR AUTHOR'S ORGANIZ ATION 12/26/[address] [facility] DATE CREATED AUTHOR AUTHOR'S ORGANIZ ATION 01/09/2023 [facility] DATE CREATED AUTHOR AUTHOR'S ORGANIZ ATION 01/18/2023 [facility] DATE CREATED AUTHOR AUTHOR'S ORGANIZ ATION 01/18/2023 [facility] dical Specialists EPIC Care Teams (unrecognized sec tion and content) Vendor Specialist Relationship Specialty Start Date End Date Cas Dowell MD PCP - General 09/04/11 Vendor Specialist Relationship Specialty Start Date End Date Cas Dowell MD PCP - General 09/04/11 Vendor Specialist Relationship Specialty Start Date End Date Cas Dowell PCP - General Family Practice 02/20/14 Vendor Specialist Relationship Specialty Start Date End Date Cas Dowell MD PCP - General 09/04/11 Vendor Specialist Relationship Specialty Start Date End Date Cas Dowell PCP - General Family Practice 02/20/14 Vendor Specialist Relationship Specialty Start Date End Date Cas Dowell PCP - General Family Practice 02/20/14 Vendor Specialist Relationship Specialty Start Date End Date Cas Dowell PCP - General Family Practice 02/20/14 Vendor Specialist Relationship Specialty Start Date End Date NadelCas almonte PCP - General Family Practice 02/20/14 Vendor Specialist Relationship Specialty Start Date End Date NadelCas almonte PCP - General Family Practice 02/20/14 Vendor Specialist Relationship Specialty Start Date End Date NadelCas almonte PCP - General Family Practice 02/20/14 Vendor Specialist Relationship Specialty Start Date End Date NadelCas almonte PCP - General Family Practice 02/20/14 Vendor Specialist Relationship Specialty Start Date End Date CoreyelCas almonte MD PCP - General 09/04/11 Vendor Specialist Relationship Specialty Start Date End Date GabrielaCas almonte PCP - General Family Practice 02/20/14 Vendor Specialist Relationship Specialty Start Date End Date CoreyelCas almonte PCP - General Family Practice 02/20/14 Vendor Specialist Relationship Specialty Start Date End Date CoreyelCas almonte PCP - General Family Practice 02/20/14 Vendor Specialist Relationship Specialty Start Date End Date NadelCas almonte PCP - General Family Practice 02/20/14 Vendor Specialist Relationship Specialty Start Date End Date Cas Dowell PCP - General Family Practice 02/20/14 Vendor Specialist Relationship Specialty Start Date End Date Cas Dowell PCP - General Family Practice 02/20/14 Vendor Specialist Relationship Specialty Start Date End Date Cas Dowell PCP - General Family Practice 02/20/14 Vendor Specialist Relationship Specialty Start Date End Date Cas Dowell PCP - General Family Practice 02/20/14 Sai Perez MD [address] [place], [place] [id number] Primary Staff Physician Cardiology 07/21/21 Vendor Specialist Relationship Specialty Start Date End Date Cas Dowell PCP - General Family Practice 02/20/14 Sai Perez MD [address] [place] [address] Primary Staff Physician Cardiology 07/21/21 Vendor Specialist Relationship Specialty Start Date End Date Cas Dowell PCP - General Family Practice 02/20/14 Sai Perez MD [address] [place] [address] Primary Staff Physician Cardiology 07/21/21 Vendor Specialist Relationship Specialty Start Date End Date Cas Dowell PCP - General Family Practice 02/20/14 Vendor Specialist Relationship Specialty Start Date End Date Cas Dowell PCP - General Family Practice 02/20/14 Sai Perez MD [address] [place] [address] Primary Staff Physician Cardiology 07/21/21 Vendor Specialist Relationship Specialty Start Date End Date Cas Dowell PCP - General Family Practice 02/20/14 Sai Perez MD [address], [place] [id number] Primary Staff Physician Cardiology 07/21/21 Vendor Specialist Relationship Specialty Start Date End Date Cas Dowell PCP - General Family Practice 02/20/14 Sai Perez MD [address] [place] [address] Primary Staff Physician Cardiology 07/21/[address] [place] [address] Referring DYE WEIGHER HELPER 08/05/21 Vendor Specialist Relationship Specialty Start Date End Date Cas Dowell PCP - General Family Practice 02/20/14 Sai Perez MD [address] [place] [address] Primary Staff Physician Cardiology 07/21/21 Rubens Tim [facility] [place] [address] Referring DYE WEIGHER HELPER 08/05/21 Vendor Specialist Relationship Specialty Start Date End Date Cas Dowell PCP - General Family Practice 02/20/14 Sai Perez MD [address] [place] [address] Primary Staff Physician Cardiology 07/21/21 Rubens Tim [facility] [place] [address] Referring DYE WEIGHER HELPER 08/05/21 Vendor Specialist Relationship Specialty Start Date End Date Cas Dowell PCP - General Family Practice 02/20/14 Sai Perez MD [address] [place] [address] Primary Staff Physician Cardiology 07/21/21 Rubens Tim [address] [place], [place] [address], [place] [id number] Referring DYE WEIGHER HELPER 08/05/21 Vendor Specialist Relationship Specialty Start Date End Date Cas Dowell PCP - General Family Practice 02/20/14 Sai Perez MD [address] [place] [address] Primary Staff Physician Cardiology 07/21/21 Rubens Tim [address] [place], [place] [address] [place], [id number] Referring DYE WEIGHER HELPER 08/05/21 Vendor Specialist Relationship Specialty Start Date End Date Cas Dowell PCP - General Family Practice 02/20/14 Sai Perez MD [address] [place] [address] Primary Staff Physician Cardiology 07/21/21 Rubens Tim [address] [place], [place] [address] [place] [address] Referring DYE WEIGHER HELPER 08/05/21 Vendor Specialist Relationship Specialty Start Date End Date Cas Dowell PCP - General Family Practice 02/20/14 Sai Perez MD [address] [place] [address] Primary Staff Physician Cardiology 07/21/21 Rubens Tim, DO [address] [place] [address] Referring DYE WEIGHER HELPER 08/05/21 Vendor Specialist Relationship Specialty Start Date End Date Cas Dowell PCP - General Family Practice 02/20/14 Sai Perez MD [address] [place] [address] Primary Staff Physician Cardiology 07/21/21 Rubens Tim, DO [address] [place], [id number] Referring DYE WEIGHER HELPER 08/05/21 Vendor Specialist Relationship Specialty Start Date End Date Cas Dowell PCP - General Family Practice 02/20/14 Sai Perez MD [address] [place] [address] Primary Staff Physician Cardiology 07/21/21 Rubens Tim, DO [address] [place], [id number] Referring DYE WEIGHER HELPER 08/05/21 Vendor Specialist Relationship Specialty Start Date End Date Cas Dowell PCP - General Family Practice 02/20/14 Sai Perez MD [address] [place] [address] Primary Staff Physician Cardiology 07/21/21 Rubens Tim, DO [address] [place] [address] Referring DYE WEIGHER HELPER 08/05/21 Vendor Specialist Relationship Specialty Start Date End Date Cas Dowell PCP - General Family Practice 02/20/14 Sai Perez MD [address] [place] [address] Primary Staff Physician Cardiology 07/21/21 Rubens Tim, [facility] [place] [place] [address] Referring DYE WEIGHER HELPER 08/05/21 Vendor Specialist Relationship Specialty Start Date End Date Cas Dowell MD PCP - General 09/04/11 Vendor Specialist Relationship Specialty Start Date End Date Cas Dowell PCP - General Family Practice 02/20/14 Sai Perez MD [address] [place] [address] Primary Staff Physician Cardiology 07/21/21 Rubens Tim, DO [facility] [address] [place], [place] [address] Referring DYE WEIGHER HELPER 08/05/21 Vendor Specialist Relationship Specialty Start Date End Date Cas Dowell PCP - General Family Practice 02/20/14 Sai Perez MD [address] [place] [address] Primary Staff Physician Cardiology 07/21/21 Rubens Tim, [address] [place] [address] Referring DYE WEIGHER HELPER 08/05/21 Vendor Specialist Relationship Specialty Start Date End Date Cas Dowell PCP - General Family Practice 02/20/14 Sai Perez MD [address] [place] [address] Primary Staff Physician Cardiology 07/21/21 Rubens Tim, DO [address] [place] [address] Referring DYE WEIGHER HELPER 08/05/21 Vendor Specialist Relationship Specialty Start Date End Date Cas Dowell PCP - General Family Practice 02/20/14 Sai Perez MD [address] [place] [address] Primary Staff Physician Cardiology 07/21/21 Rubens Tim, DO [address] [place], [place] [address] Referring DYE WEIGHER HELPER 08/05/21 Vendor Specialist Relationship Specialty Start Date End Date Cas Dowell PCP - General Family Practice 02/20/14 Sai Perez MD [address] [place] [address] Primary Staff Physician Cardiology 07/21/21 Rubens Tim, DO [address] [place] [address] Referring DYE WEIGHER HELPER 08/05/21 Vendor Specialist Relationship Specialty Start Date End Date Cas Dowell PCP - General Family Practice 02/20/14 Sai Perez MD [address] [place] [address] Primary Staff Physician Cardiology 07/21/21 Rubens Tim, DO [address] [place] [address] Referring DYE WEIGHER HELPER 08/05/21 Vendor Specialist Relationship Specialty Start Date End Date Cas Dowell PCP - General Family Practice 02/20/14 Sai Perez MD [address] [place] [address] Primary Staff Physician Cardiology 07/21/21 Rubens Tim, DO [address] [place], [id number] Referring DYE WEIGHER HELPER 08/05/21 Vendor Specialist Relationship Specialty Start Date End Date Cas Dowell PCP - General Family Practice 02/20/14 Sai Perez MD [address] [place] [address] Primary Staff Physician Cardiology 07/21/21 Rubens Tim, DO [address] [place], [place] [address] Referring DYE WEIGHER HELPER 08/05/21 Vendor Specialist Relationship Specialty Start Date End Date Cas Dowell PCP - General Family Practice 02/20/14 Sai Perez MD [address] [place] [address] Primary Staff Physician Cardiology 07/21/21 Rubens Tim, DO [address] [place] [address] Referring DYE WEIGHER HELPER 08/05/21 Vendor Specialist Relationship Specialty Start Date End Date Cas Dowell PCP - General Family Practice 02/20/14 Sai Perez MD [address] [place] [address] Primary Staff Physician Cardiology 07/21/21 Rubens Tim, DO [address] [place] [address] Referring DYE WEIGHER HELPER 08/05/21 Vendor Specialist Relationship Specialty Start Date End Date Cas Dowell PCP - General Family Practice 02/20/14 Sai Perez MD [address] [place] [address] Primary Staff Physician Cardiology 07/21/21 Rubens Tim, DO [address] [place], [id number] Referring DYE WEIGHER HELPER 08/05/21 Vendor Specialist Relationship Specialty Start Date End Date Cas Dowell PCP - General Family Practice 02/20/14 Sai Perez MD [address] [place] [address] Primary Staff Physician Cardiology 07/21/21 Rubens Tim, DO [address] [place], [place] [id number] Referring DYE WEIGHER HELPER 08/05/21 Vendor Specialist Relationship Specialty Start Date End Date Cas Dowell PCP - General Family Medicine 02/20/14 Sai Perez MD [address] [place] [address] Primary Staff Physician Cardiology 07/21/21 Rubens Tim, DO [address] [place] [address] Referring DYE WEIGHER HELPER 08/05/21 Vendor Specialist Relationship Specialty Start Date End Date Cas Dowell PCP - General Family Medicine 02/20/14 Sai Perez MD [address] [place] [address] Primary Staff Physician Cardiology 07/21/21 Rubens Tim, DO [address] [place] [address] Referring DYE WEIGHER HELPER 08/05/21 Vendor Specialist Relationship Specialty Start Date End Date Cas Dowell PCP - General Family Medicine 02/20/14 Sai Perez MD [address] [place] [address] Primary Staff Physician Cardiology 07/21/21 Rubens Tim, DO [address] [place], [id number] Referring DYE WEIGHER HELPER 08/05/21 Vendor Specialist Relationship Specialty Start Date End Date Cas Dowell PCP - General Family Medicine 02/20/14 Sai Perez MD [address] [place] [address] Primary Staff Physician Cardiology 07/21/21 Rubens Tim, DO [address] [place], [id number] Referring DYE WEIGHER HELPER 08/05/21 Vendor Specialist Relationship Specialty Start Date End Date Cas Dowell PCP - General Family Medicine 02/20/14 Sai Perez MD [address] [place] [address] Primary Staff Physician Cardiology 07/21/21 Rubens Tim, DO [address] [place], [id number] Referring DYE WEIGHER HELPER 08/05/21 Vendor Specialist Relationship Specialty Start Date End Date Cas Dowell PCP - General Family Medicine 02/20/14 Sai Perez MD [address] [place] [address] Primary Staff Physician Cardiology 07/21/21 Rubens Tim, DO [address] [place], [id number] Referring DYE WEIGHER HELPER 08/05/21 Vendor Specialist Relationship Specialty Start Date End Date Cas Dowell PCP - General Family Medicine 02/20/14 Sai Perez MD [address] [place] [address] Primary Staff Physician Cardiology 07/21/21 Rubens Tim, DO [address] [place], [id number] Referring DYE WEIGHER HELPER 08/05/21 Vendor Specialist Relationship Specialty Start Date End Date Cas Dowell PCP - General Family Medicine 02/20/14 Sai Perez MD [address] [place] [address] Primary Staff Physician Cardiology 07/21/21 Rubens Tim, DO [address] [place] [address] Referring DYE WEIGHER HELPER 08/05/21 Vendor Specialist Relationship Specialty Start Date End Date Cas Dowell PCP - General Family Medicine 02/20/14 Sai Perez MD [address] [place] [address] Primary Staff Physician Cardiology 07/21/21 Rubens Tim, DO [address] [place], [place] [address] Referring DYE WEIGHER HELPER 08/05/21 Vendor Specialist Relationship Specialty Start Date End Date Cas Dowell PCP - General Family Medicine 02/20/14 Sai Perez MD [address] [place] [address] Primary Staff Physician Cardiology 07/21/21 Rubens Tim, DO [address] [place], [id number] Referring DYE WEIGHER HELPER 08/05/21 Vendor Specialist Relationship Specialty Start Date End Date Cas Dowell PCP - General Family Medicine 02/20/14 Sai Perez MD [address] [place] [address] Primary Staff Physician Cardiology 07/21/21 Rubens Tim, DO [address] [place] [address] Referring DYE WEIGHER HELPER 08/05/21 Vendor Specialist Relationship Specialty Start Date End Date Cas Dowell PCP - General Family Medicine 02/20/14 Sai Perez MD [address] [place] [address] Primary Staff Physician Cardiology 07/21/21 Rubens Tim, DO [address] [place], [id number] Referring DYE WEIGHER HELPER 08/05/21 Vendor Specialist Relationship Specialty Start Date End Date Cas Dowell PCP - General Family Medicine 02/20/14 Sai Perez MD [address] [place] [address] Primary Staff Physician Cardiology 07/21/21 Rubens Tim, DO [address] [place], [id number] Referring DYE WEIGHER HELPER 08/05/21 Vendor Specialist Relationship Specialty Start Date End Date Cas Dowell MD PCP - General 09/04/11 Vendor Specialist Relationship Specialty Start Date End Date Cas Dowell PCP - General Family Medicine 02/20/14 Sai Perez MD [address] [place] [address] Primary Staff Physician Cardiology 07/21/21 Rubens Tim, DO [address] [place] [address] Referring DYE WEIGHER HELPER 08/05/21 Vendor Specialist Relationship Specialty Start Date End Date Cas Dowell PCP - General Family Medicine 02/20/14 Sai Perez MD [address] [place] [address] Primary Staff Physician Cardiology 07/21/21 Rubens Tim, DO [address] [place], [place] [address] Referring DYE WEIGHER HELPER 08/05/21 Vendor Specialist Relationship Specialty Start Date End Date Cas Dowell PCP - General [facility] Medicine 02/20/14 Sai Perez MD [address] [place] [address] Primary Staff Physician Cardiology 07/21/21 Rubens Tim, DO [address] [place], [place] [address] Referring DYE WEIGHER HELPER 08/05/21 Vendor Specialist Relationship Specialty Start Date End Date Cas Dowell PCP - General Family Medicine 02/20/14 Sai Perez MD [address] [place] [address] Primary Staff Physician Cardiology 07/21/21 Rubens Tim, DO [address] [place], [id number] Referring DYE WEIGHER HELPER 08/05/21 Vendor Specialist Relationship Specialty Start Date End Date Cas Dowell PCP - General Family Medicine 02/20/14 Sai Perez MD [address] [place] [address] Primary Staff Physician Cardiology 07/21/21 Rubens Tim, DO [address] [place], [place] [address] Referring DYE WEIGHER HELPER 08/05/21 Vendor Specialist Relationship Specialty Start Date End Date Cas Dowell PCP - General Family Medicine 02/20/14 Sai Perez MD [address] [place] [id number] Primary Staff Physician Cardiology 07/21/21 Rubens Tim, DO [address] [place], [place] [address] Referring DYE WEIGHER HELPER 08/05/21 Vendor Specialist Relationship Specialty Start Date End Date Cas Dowell PCP - General Family Medicine 02/20/14 Sai Perez MD [address] [place] [address] Primary Staff Physician Cardiology 07/21/21 Rubens Tim, DO [address] [place], [place] [address] Referring DYE WEIGHER HELPER 08/05/21 Vendor Specialist Relationship Specialty Start Date End Date Cas Dowell PCP - General Family Medicine 02/20/14 Sai Perez MD [address] [place] [address] Primary Staff Physician Cardiology 07/21/21 Rubens Tim, DO [address] [place], [place] [address] Referring DYE WEIGHER HELPER 08/05/21 Vendor Specialist Relationship Specialty Start Date End Date Grayson Cas Megan PCP - General Family Medicine 02/20/14 Sai Perez MD [address] [place] [address] Primary Staff Physician Cardiology 07/21/21 Rubens Tim DO [address] [facility] [place] [address] Referring DYE WEIGHER HELPER 08/05/21 Vendor Specialist Relationship Specialty Start Date End Date Cas Dowell PCP - General Family Medicine 02/20/14 Sai Perez MD [address] [place] [address] Primary Staff Physician Cardiology 07/21/21 Rubens Tim DO [address] [facility] [place] [place] [address] Referring DYE WEIGHER HELPER 08/05/21 Source Comments (unrecognize d section and content) In the event this informatio n is protected by the Federal Confidentiality of Alcohol and Drug Abuse Patient Records regulations: The Federal rules restrict any use of the information to criminally investigate or prosecute any alcohol or drug abuse patient.[facility] the event this information is protected by the Federal Confidentiality of Alcohol and Drug Abuse Patient Records regulations: The Federal rules restrict any use of the information to criminally investigate or prosecute any alcohol or drug abuse patient.[facility] HospitalIn the event this information is protected by the Federal Confidentiality of Alcohol and Drug Abuse Patient Records regulations: The Federal rules restrict any use of the information to criminally investigate or prosecute any alcohol or drug abuse patient.[facility] HospitalIn the event this information is protected by the Federal Confidentiality of Alcohol and Drug Abuse Patient Records regulations: The Federal rules restrict any use of the information to criminally investigate or prosecute any alcohol or drug abuse patient.[facility] HospitalIn the event this information is protected by the Federal Confidentiality of Alcohol and Drug Abuse Patient Records regulations: The Federal rules restrict any use of the information to criminally investigate or prosecute any alcohol or drug abuse patient.[facility] HospitalIn the event this information is protected by the Federal Confidentiality of Alcohol and Drug Abuse Patient Records regulations: The Federal rules restrict any use of the information to criminally investigate or prosecute any alcohol or drug abuse patient.[facility] HospitalIn the event this information is protected by the Federal Confidentiality of Alcohol and Drug Abuse Patient Records regulations: The Federal rules restrict any use of the information to criminally investigate or prosecute any alcohol or drug abuse patient.[facility] HospitalIn the event this information is protected by the Federal Confidentiality of Alcohol and Drug Abuse Patient Records regulations: The Federal rules restrict any use of the information to criminally investigate or prosecute any alcohol or drug abuse patient.[facility] HospitalIn the event this information is protected by the Federal Confidentiality of Alcohol and Drug Abuse Patient Records regulations: The Federal rules restrict any use of the information to criminally investigate or prosecute any alcohol or drug abuse patient.[facility] HospitalIn the event this information is protected by the Federal Confidentiality of Alcohol and Drug Abuse Patient Records regulations: The Federal rules restrict any use of the information to criminally investigate or prosecute any alcohol or drug abuse patient.[facility] HospitalIn the event this information is protected by the Federal Confidentiality of Alcohol and Drug Abuse Patient Records regulations: The Federal rules restrict any use of the information to criminally investigate or prosecute any alcohol or drug abuse patient.[facility] HospitalIn the event this information is protected by the Federal Confidentiality of Alcohol and Drug Abuse Patient Records regulations: The Federal rules restrict any use of the information to criminally investigate or prosecute any alcohol or drug abuse patient.[facility] HospitalIn the event this information is protected by the Federal Confidentiality of Alcohol and Drug Abuse Patient Records regulations: The Federal rules restrict any use of the information to criminally investigate or prosecute any alcohol or drug abuse patient.[facility] HospitalIn the event this information is protected by the Federal Confidentiality of Alcohol and Drug Abuse Patient Records regulations: The Federal rules restrict any use of the information to criminally investigate or prosecute any alcohol or drug abuse patient.[facility] HospitalIn the event this information is protected by the Federal Confidentiality of Alcohol and Drug Abuse Patient Records regulations: The Federal rules restrict any use of the information to criminally investigate or prosecute any alcohol or drug abuse patient.[facility] HospitalIn the event this information is protected by the Federal Confidentiality of Alcohol and Drug Abuse Patient Records regulations: The Federal rules restrict any use of the information to criminally investigate or prosecute any alcohol or drug abuse patient.[facility] HospitalIn the event this information is protected by the Federal Confidentiality of Alcohol and Drug Abuse Patient Records regulations: The Federal rules restrict any use of the information to criminally investigate or prosecute any alcohol or drug abuse patient.[facility] HospitalIn the event this information is protected by the Federal Confidentiality of Alcohol and Drug Abuse Patient Records regulations: The Federal rules restrict any use of the information to criminally investigate or prosecute any alcohol or drug abuse patient.[facility] HospitalIn the event this information is protected by the Federal Confidentiality of Alcohol and Drug Abuse Patient Records regulations: The Federal rules restrict any use of the information to criminally investigate or prosecute any alcohol or drug abuse patient.[facility] HospitalIn the event this information is protected by the Federal Confidentiality of Alcohol and Drug Abuse Patient Records regulations: The Federal rules restrict any use of the information to criminally investigate or prosecute any alcohol or drug abuse patient.[facility] HospitalIn the event this information is protected by the Federal Confidentiality of Alcohol and Drug Abuse Patient Records regulations: The Federal rules restrict any use of the information to criminally investigate or prosecute any alcohol or drug abuse patient.[facility] HospitalIn the event this information is protected by the Federal Confidentiality of Alcohol and Drug Abuse Patient Records regulations: The Federal rules restrict any use of the information to criminally investigate or prosecute any alcohol or drug abuse patient.[facility] HospitalIn the event this information is protected by the Federal Confidentiality of Alcohol and Drug Abuse Patient Records regulations: The Federal rules restrict any use of the information to criminally investigate or prosecute any alcohol or drug abuse patient.[facility] HospitalIn the event this information is protected by the Federal Confidentiality of Alcohol and Drug Abuse Patient Records regulations: The Federal rules restrict any use of the information to criminally investigate or prosecute any alcohol or drug abuse patient.[facility] HospitalIn the event this information is protected by the Federal Confidentiality of Alcohol and Drug Abuse Patient Records regulations: The Federal rules restrict any use of the information to criminally investigate or prosecute any alcohol or drug abuse patient.[facility] the event this information is protected by the Federal Confidentiality of Alcohol and Drug Abuse Patient Records regulations: The Federal rules restrict any use of the information to criminally investigate or prosecute any alcohol or drug abuse patient.[facility] HospitalIn the event this information is protected by the Federal Confidentiality of Alcohol and Drug Abuse Patient Records regulations: The Federal rules restrict any use of the information to criminally investigate or prosecute any alcohol or drug abuse patient.[facility] HospitalIn the event this information is protected by the Federal Confidentiality of Alcohol and Drug Abuse Patient Records regulations: The Federal rules restrict any use of the information to criminally investigate or prosecute any alcohol or drug abuse patient.[facility] the event this information is protected by the Federal Confidentiality of Alcohol and Drug Abuse Patient Records regulations: The Federal rules restrict any use of the information to criminally investigate or prosecute any alcohol or drug abuse patient.[facility] HospitalIn the event this information is protected by the Federal Confidentiality of Alcohol and Drug Abuse Patient Records regulations: The Federal rules restrict any use of the information to criminally investigate or prosecute any alcohol or drug abuse patient.[facility] HospitalIn the event this information is protected by the Federal Confidentiality of Alcohol and Drug Abuse Patient Records regulations: The Federal rules restrict any use of the information to criminally investigate or prosecute any alcohol or drug abuse patient.[facility] HospitalIn the event this information is protected by the Federal Confidentiality of Alcohol and Drug Abuse Patient Records regulations: The Federal rules restrict any use of the information to criminally investigate or prosecute any alcohol or drug abuse patient.[facility] HospitalIn the event this information is protected by the Federal Confidentiality of Alcohol and Drug Abuse Patient Records regulations: The Federal rules restrict any use of the information to criminally investigate or prosecute any alcohol or drug abuse patient.[facility] HospitalIn the event this information is protected by the Federal Confidentiality of Alcohol and Drug Abuse Patient Records regulations: The Federal rules restrict any use of the information to criminally investigate or prosecute any alcohol or drug abuse patient.[facility] HospitalIn the event this information is protected by the Federal Confidentiality of Alcohol and Drug Abuse Patient Records regulations: The Federal rules restrict any use of the information to criminally investigate or prosecute any alcohol or drug abuse patient.[facility] HospitalIn the event this information is protected by the Federal Confidentiality of Alcohol and Drug Abuse Patient Records regulations: The Federal rules restrict any use of the information to criminally investigate or prosecute any alcohol or drug abuse patient.[facility] HospitalIn the event this information is protected by the Federal Confidentiality of Alcohol and Drug Abuse Patient Records regulations: The Federal rules restrict any use of the information to criminally investigate or prosecute any alcohol or drug abuse patient.[facility] HospitalIn the event this information is protected by the Federal Confidentiality of Alcohol and Drug Abuse Patient Records regulations: The Federal rules restrict any use of the information to criminally investigate or prosecute any alcohol or drug abuse patient.[facility] HospitalIn the event this information is protected by the Federal Confidentiality of Alcohol and Drug Abuse Patient Records regulations: The Federal rules restrict any use of the information to criminally investigate or prosecute any alcohol or drug abuse patient.[facility] HospitalIn the event this information is protected by the Federal Confidentiality of Alcohol and Drug Abuse Patient Records regulations: The Federal rules restrict any use of the information to criminally investigate or prosecute any alcohol or drug abuse patient.[facility] HospitalIn the event this information is protected by the Federal Confidentiality of Alcohol and Drug Abuse Patient Records regulations: The Federal rules restrict any use of the information to criminally investigate or prosecute any alcohol or drug abuse patient.[facility] HospitalIn the event this information is protected by the Federal Confidentiality of Alcohol and Drug Abuse Patient Records regulations: The Federal rules restrict any use of the information to criminally investigate or prosecute any alcohol or drug abuse patient.[facility] HospitalIn the event this information is protected by the Federal Confidentiality of Alcohol and Drug Abuse Patient Records regulations: The Federal rules restrict any use of the information to criminally investigate or prosecute any alcohol or drug abuse patient.[facility] HospitalIn the event this information is protected by the Federal Confidentiality of Alcohol and Drug Abuse Patient Records regulations: The Federal rules restrict any use of the information to criminally investigate or prosecute any alcohol or drug abuse patient.[facility] HospitalIn the event this information is protected by the Federal Confidentiality of Alcohol and Drug Abuse Patient Records regulations: The Federal rules restrict any use of the information to criminally investigate or prosecute any alcohol or drug abuse patient.[facility] HospitalIn the event this information is protected by the Federal Confidentiality of Alcohol and Drug Abuse Patient Records regulations: The Federal rules restrict any use of the information to criminally investigate or prosecute any alcohol or drug abuse patient.[facility] HospitalIn the event this information is protected by the Federal Confidentiality of Alcohol and Drug Abuse Patient Records regulations: The Federal rules restrict any use of the information to criminally investigate or prosecute any alcohol or drug abuse patient.[facility] HospitalIn the event this information is protected by the Federal Confidentiality of Alcohol and Drug Abuse Patient Records regulations: The Federal rules restrict any use of the information to criminally investigate or prosecute any alcohol or drug abuse patient.[facility] HospitalIn the event this information is protected by the Federal Confidentiality of Alcohol and Drug Abuse Patient Records regulations: The Federal rules restrict any use of the information to criminally investigate or prosecute any alcohol or drug abuse patient.[facility] HospitalIn the event this information is protected by the Federal Confidentiality of Alcohol and Drug Abuse Patient Records regulations: The Federal rules restrict any use of the information to criminally investigate or prosecute any alcohol or drug abuse patient.[facility] HospitalIn the event this information is protected by the Federal Confidentiality of Alcohol and Drug Abuse Patient Records regulations: The Federal rules restrict any use of the information to criminally investigate or prosecute any alcohol or drug abuse patient.[facility] HospitalIn the event this information is protected by the Federal Confidentiality of Alcohol and Drug Abuse Patient Records regulations: The Federal rules restrict any use of the information to criminally investigate or prosecute any alcohol or drug abuse patient.[facility] HospitalIn the event this information is protected by the Federal Confidentiality of Alcohol and Drug Abuse Patient Records regulations: The Federal rules restrict any use of the information to criminally investigate or prosecute any alcohol or drug abuse patient.[facility] HospitalIn the event this information is protected by the Federal Confidentiality of Alcohol and Drug Abuse Patient Records regulations: The Federal rules restrict any use of the information to criminally investigate or prosecute any alcohol or drug abuse patient.[facility] HospitalIn the event this information is protected by the Federal Confidentiality of Alcohol and Drug Abuse Patient Records regulations: The Federal rules restrict any use of the information to criminally investigate or prosecute any alcohol or drug abuse patient.[facility] HospitalIn the event this information is protected by the Federal Confidentiality of Alcohol and Drug Abuse Patient Records regulations: The Federal rules restrict any use of the information to criminally investigate or prosecute any alcohol or drug abuse patient.[facility] HospitalIn the event this information is protected by the Federal Confidentiality of Alcohol and Drug Abuse Patient Records regulations: The Federal rules restrict any use of the information to criminally investigate or prosecute any alcohol or drug abuse patient.[facility] HospitalIn the event this information is protected by the Federal Confidentiality of Alcohol and Drug Abuse Patient Records regulations: The Federal rules restrict any use of the information to criminally investigate or prosecute any alcohol or drug abuse patient.[facility] HospitalIn the event this information is protected by the Federal Confidentiality of Alcohol and Drug Abuse Patient Records regulations: The Federal rules restrict any use of the information to criminally investigate or prosecute any alcohol or drug abuse patient.[facility] HospitalIn the event this information is protected by the Federal Confidentiality of Alcohol and Drug Abuse Patient Records regulations: The Federal rules restrict any use of the information to criminally investigate or prosecute any alcohol or drug abuse patient.[facility] HospitalIn the event this information is protected by the Federal Confidentiality of Alcohol and Drug Abuse Patient Records regulations: The Federal rules restrict any use of the information to criminally investigate or prosecute any alcohol or drug abuse patient.[facility] HospitalIn the event this information is protected by the Federal Confidentiality of Alcohol and Drug Abuse Patient Records regulations: The Federal rules restrict any use of the information to criminally investigate or prosecute any alcohol or drug abuse patient.[facility] HospitalIn the event this information is protected by the Federal Confidentiality of Alcohol and Drug Abuse Patient Records regulations: The Federal rules restrict any use of the information to criminally investigate or prosecute any alcohol or drug abuse patient.[facility] HospitalIn the event this information is protected by the Federal Confidentiality of Alcohol and Drug Abuse Patient Records regulations: The Federal rules restrict any use of the information to criminally investigate or prosecute any alcohol or drug abuse patient.[facility] HospitalIn the event this information is protected by the Federal Confidentiality of Alcohol and Drug Abuse Patient Records regulations: The Federal rules restrict any use of the information to criminally investigate or prosecute any alcohol or drug abuse patient.[facility] HospitalIn the event this information is protected by the Federal Confidentiality of Alcohol and Drug Abuse Patient Records regulations: The Federal rules restrict any use of the information to criminally investigate or prosecute any alcohol or drug abuse patient.[facility] HospitalIn the event this information is protected by the Federal Confidentiality of Alcohol and Drug Abuse Patient Records regulations: The Federal rules restrict any use of the information to criminally investigate or prosecute any alcohol or drug abuse patient.[facility] HospitalIn the event this information is protected by the Federal Confidentiality of Alcohol and Drug Abuse Patient Records regulations: The Federal rules restrict any use of the information to criminally investigate or prosecute any alcohol or drug abuse patient.[facility] HospitalIn the event this information is protected by the Federal Confidentiality of Alcohol and Drug Abuse Patient Records regulations: The Federal rules restrict any use of the information to criminally investigate or prosecute any alcohol or drug abuse patient.[facility] HospitalIn the event this information is protected by the Federal Confidentiality of Alcohol and Drug Abuse Patient Records regulations: The Federal rules restrict any use of the information to criminally investigate or prosecute any alcohol or drug abuse patient.[facility] HospitalIn the event this information is protected by the Federal Confidentiality of Alcohol and Drug Abuse Patient Records regulations: The Federal rules restrict any use of the information to criminally investigate or prosecute any alcohol or drug abuse patient.[facility] HospitalIn the event this information is protected by the Federal Confidentiality of Alcohol and Drug Abuse Patient Records regulations: The Federal rules restrict any use of the information to criminally investigate or prosecute any alcohol or drug abuse patient.[facility] HospitalIn the event this information is protected by the Federal Confidentiality of Alcohol and Drug Abuse Patient Records regulations: The Federal rules restrict any use of the information to criminally investigate or prosecute any alcohol or drug abuse patient.[facility] HospitalIn the event this information is protected by the Federal Confidentiality of Alcohol and Drug Abuse Patient Records regulations: The Federal rules restrict any use of the information to criminally investigate or prosecute any alcohol or drug abuse patient.[facility] HospitalIn the event this information is protected by the Federal Confidentiality of Alcohol and Drug Abuse Patient Records regulations: The Federal rules restrict any use of the information to criminally investigate or prosecute any alcohol or drug abuse patient.[facility] the event this information is protected by the Federal Confidentiality of Alcohol and Drug Abuse Patient Records regulations: The Federal rules restrict any use of the information to criminally investigate or prosecute any alcohol or drug abuse patient.[facility] HospitalIn the event this information is protected by the Federal Confidentiality of Alcohol and Drug Abuse Patient Records regulations: The Federal rules restrict any use of the information to criminally investigate or prosecute any alcohol or drug abuse patient.[facility] HospitalIn the event this information is protected by the Federal Confidentiality of Alcohol and Drug Abuse Patient Records regulations: The Federal rules restrict any use of the information to criminally investigate or prosecute any alcohol or drug abuse patient.[facility] the event this information is protected by the Federal Confidentiality of Alcohol and Drug Abuse Patient Records regulations: The Federal rules restrict any use of the information to criminally investigate or prosecute any alcohol or drug abuse patient.[facility] HospitalIn the event this information is protected by the Federal Confidentiality of Alcohol and Drug Abuse Patient Records regulations: The Federal rules restrict any use of the information to criminally investigate or prosecute any alcohol or drug abuse patient.[facility] HospitalIn the event this information is protected by the Federal Confidentiality of Alcohol and Drug Abuse Patient Records regulations: The Federal rules restrict any use of the information to criminally investigate or prosecute any alcohol or drug abuse patient.[facility] HospitalIn the event this information is protected by the Federal Confidentiality of Alcohol and Drug Abuse Patient Records regulations: The Federal rules restrict any use of the information to criminally investigate or prosecute any alcohol or drug abuse patient.[facility] HospitalIn the event this information is protected by the Federal Confidentiality of Alcohol and Drug Abuse Patient Records regulations: The Federal rules restrict any use of the information to criminally investigate or prosecute any alcohol or drug abuse patient.[facility] HospitalIn the event this information is protected by the Federal Confidentiality of Alcohol and Drug Abuse Patient Records regulations: The Federal rules restrict any use of the information to criminally investigate or prosecute any alcohol or drug abuse patient.[facility] FOR RECORDS PERTAINING TO PATIENTS WHO ARE OR HAVE BEEN ENROLLED IN A CHEMICAL DEPENDENCY/SUBSTANCEABUSE PROGRAM, SOME INFORMATION MAY BE OMITTED. This clinical summary was aggregated from multiple sources. Caution should be exercised in using it in the provision of clinical care. This summary normalizes information from multiple sources, and as a consequence, information in this document may materially change the coding, format and clinical context of patient data. In addition, data may be omitted in some cases. CLINICAL DECISIONS SHOULD BE BASED ON THE PRIMARY CLINICAL RECORDS. [facility] [employer] [facility]. provides no warranty or guarantee of the accuracy or completeness of information in this document.
== END 2023-01-24 09:22 | disposition home or self-care (01) ==
LOC: PST 09:21
PROVIDERS: PCP Family Medicine; Visit Provider Surgery
DX: Z01.818 Encounter for other preprocedural examination (principal); K21.9 Gastro-esophageal reflux disease without esophagitis

== ENCOUNTER 2023-01-31 08:27 | Day surgery (SDC) | payer BC, SELFPAY ==
--- NOTE | 2023-01-31 | OP_ITS ---
OPERATION DATE: 01/31/2023 PREOPERATIVE DIAGNOSIS: Gastroesophageal reflux disease, regurgitation. POSTOPERATIVE DIAGNOSIS: Small, sliding type hiatal hernia as well as bile reflux. PROCEDURE: EGD. SURGEON: Tesfaye Yang M.D. ANESTHESIA: Monitored anesthesia care. ESTIMATED BLOOD LOSS: Zero. 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 Indications, risks, benefits, alternatives of proceeding with EGD were explained extensively to the patient, including the risks of bleeding, aspiration, esophageal/gastric/duodenal perforation or anesthetic complications. All of her questions were answered. Informed consent was obtained. PROCEDURE: Patient brought to the operating room, placed in the left lateral decubitus position. Monitored anesthesia care was provided. Bite block was placed in the patient?s mouth. Scope was inserted into the oropharynx. Under direct visualization, it was advanced into the esophagus, past the cricopharyngeus, down to the stomach. The stomach was insufflated with air. The pylorus was traversed down to the descending portion of the duodenum. There was no evidence of duodenitis or ulceration. There was no scarring within the pyloric channel. Scope was pulled back into the stomach and retroflexed. There was noted to be a small, sliding type hiatal hernia, as well as a moderate amount of reflux into the stomach. No ulcerations or bleeding. The GE junction was noted at approximately 40 cm. There was no distal esophagitis or Mejia?s changes. The remainder of the esophagus was unremarkable. The scope was then withdrawn. Patient tolerated procedure well, was sent to recovery room in good condition. CC: Cas Galicia M.D. [facility]iri
[2023-01-31 08:45] VITALS: BP 124/66; PULSE 68; RESP 18; TEMP 36.6; O2SAT 95; BMI 37.8
[2023-01-31] MEDS: LACTATED RINGER'S SOLUTION 1,000 ML 75 ML IV (08:54)
[2023-01-31 08:55] LABS: Glucometer 118 mg/dL (74-106)
[2023-01-31 10:35] VITALS: BP 121/71; PULSE 80; RESP 14; TEMP 36.4; O2SAT 100
[2023-01-31 10:50] VITALS: BP 135/76; PULSE 69; RESP 14; O2SAT 95
[2023-01-31 11:05] VITALS: BP 135/76; PULSE 76; RESP 14; O2SAT 96
== END 2023-01-31 11:05 | disposition home or self-care (01) ==
PROVIDERS: PCP Family Medicine; Visit Provider Surgery
PROC: (CPT 731; principal; 2023-01-31 09:15)
DX: K21.9 Gastro-esophageal reflux disease without esophagitis (principal); K44.9 Diaphragmatic hernia without obstruction or gangrene; F41.8 Other specified anxiety disorders; J45.909 Unspecified asthma, uncomplicated; E03.9 Hypothyroidism, unspecified; G47.00 Insomnia, unspecified; E66.01 Morbid (severe) obesity due to excess calories; G47.33 Obstructive sleep apnea (adult) (pediatric); E11.9 Type 2 diabetes mellitus without complications; E55.9 Vitamin D deficiency, unspecified; Z90.710 Acquired absence of both cervix and uterus; Z98.51 Tubal ligation status; Z90.49 Acquired absence of other specified parts of digestive tract; Z68.38 Body mass index [BMI] 38.0-38.9, adult; Z79.84 Long term (current) use of oral hypoglycemic drugs; Z87.19 Personal history of other diseases of the digestive system
CPT/HCPCS: 00731; 43235; 36415; 82948; J2704

== ENCOUNTER 2023-04-13 07:54 | Outpatient (OUT) | payer BC, SELFPAY ==
--- OUTSIDE RECORDS SUMMARY | 2023-04-13 08:00 | XMS_ITS | CCD ---
Author Name Unknown Address [address] [place] [address] Organization [facility] Care Team Providers Care Survey Research Associate Name Role Phone Cas Dowell MD Primary Care Provider CAS DOWELL Primary Care Unavailabl e CANDIDO DAVID Referring Unavailable CAS DOWELL Primary Care Unavailabl e NABOR YANCEY Referring Unavailable Cas Dowell MD Primary Care Provider Cas Dowell MD Primary Care Provider Cas Dowell Primary Care Provider Ana PEREZ, Sai Unavailable Rubens Tim Unavailable Rubens Tim DO Unavailable Cas Dowell MD Primary Care Provider Cas Dowell Primary Care Provider Ana PEREZ, Sai Unavailable Rubens Tim DO Unavailable Cas Dowell Primary Care Provider [phone] Rubens Tim DO Unavailable Cas Dowell Primary Care Provider CAS DOWELL Primary Care Physician CAS DOWELL Primary Care Unavailabl e Cas Dowell Primary Care Provider Ana PEREZ, Sai Unavailable Rubens Tim DO Unavailable Cas Dowell MD Primary Care Provider Rubens Tim DO Unavailable ABHYANKAR, FUENTES Referring Unavailable NADERER, CAS Guzman Primary Care Unavailable ANA, SAI Referring Unavailable NADERER, CAS Guzman Primary Care Unavailable PETER KNIGHT Referring Unavailable NADERER, CAS Guzman Primary Care Unavailable ABHYANKAR, FUENTES Referring Unavailable NADERER, CAS Guzman Primary Care Unavailable PAY ., DR BURDEN Consulting Unavailable PAY ., DR BURDEN Attending Unavailable PAY ., DR BURDEN Admitting Unavailable NADERER, DR CAS Guzman Primary Care Unavailable NIRU, JEAN Consulting Unavailable EPSTEIN, MAREK Consulting Unavailable KLIPPER, BELÉN Consulting Unavailable NADERER, DR ACS Guzman Consulting Unavailable NADERER, DR CAS Guzman [...] CAS Guzman Admitting Unavailable NADERER, DR CAS uGzman Consulting Unavailable NADERER, DR CAS Guzman Primary Care Unavailable NADERER, DR CAS Guzman Attending Unavailable NADERER, DR CAS Guzman Admitting Unavailable WAYN[place], DR BELÉN [place] Consulting Unavailable NADERER, DR CAS Guzman Primary Care Unavailable TEJ, LORAINE Attending Unavailable TEJ, LORAINE Admitting Unavailable TEJ, LORAINE Consulting Unavailable GEORGE ., DR REYNOLDS Consulting Unavailable NADERER, DR CAS Guzman Primary Care Unavailable GEORGE ., DR REYNOLDS Attending Unavailable GEORGE ., DR REYNOLDS Admitting Unavailable FAWWAD, BLACKBURN [...] Unavailable NADERER, CAS A Primary Care Unavailable CINDY RUSHING Attending Unavailable NADERER, CAS A Primary Care [...] Unavailable NADERER, CAS A Primary Care Unavailable DOLORES CHAVARRIA Attending Unavailable BHARGAVI SALDANA Attending Unavailable NADERER, CAS A Primary Care Unavailable NADERER, CAS A Primary Care Unavailable DEVNANI, MEENA Referring Unavailable BHARGAVI SALDANA Attending Unavailable NADERER, CAS A Primary Care Unavailable BHARGAVI SALDANA Referring Unavailable DEVNANI, MEENA Attending Unavailable NADERER, [...] Unavailable NADERER, CAS A Primary Care Unavailable ELIEZER, CHAYO CASILLAS Admitting Unavailable ELIEZER, CHAYO CASILLAS Attending Unavailable NADERER, CAS ALEX Primary Care Unavailabl e FRANTZ, LIV Consulting Unavailable NADERER, CAS ALEX Primary Care Unavailabl e ANDSEAN BOWMAN Attending Unavailable NADERER, CAS ALEX Primary Care Unavailabl e NADERER, CAS ALEX Primary Care Unavailabl e NADERER, CAS ALEX Primary Care Unavailabl e YAO, AKILA Referring Unavailable NADERER, [facility] Primary Care Unavailabl e YAO, AKILA Referring Unavailable KARABIMACRINA Blancas Attending Unavailable KARABIN, MACRINA Attending Unavailable KARABIN, MACRINA Attending Unavailable KARABIN, MACRINA Attending Unavailable ABEL, STEPHON Admitting Unavailable ABEL, STEPHON Attending Unavailable BARAZIANGELIKA Attending Unavailable ANGELIKA CORONEL Attending Unavailable Cas Dowell MD Primary Care Provider NILTesfaye Lewis R Attending Unavailable NILTesfaye Lewis R Attending Unavailable NADERER, CAS Referring Unavailable NILLTesfaye R Attending Unavailable TEJ, LORAINE E Attending Unavailable TEJ, LORAINE E Attending Unavailable TEJ, LORAINE E Attending Unavailable Cas Dowell MD Primary Care Provider William PEREZ, Phillip Guerra Attending Unavailable Grayson PEREZ, Cas Alex Primary Care Unavail able William PEREZ, Phillip Guerra Attending Unavailable Grayson PEREZ, Cas Gutierrezony Primary Care Unavail able William PEREZ, Phillip Guerra Attending Unavailable Grayson PEREZ, Cas Gutierrezony Primary Care Unavail able William PEREZ, Phillip Guerra Attending Unavailable Cas Dowell MDony Primary Care Unavail able William MD, Phillip Guerra Attending Unavailable Cas Dowell MD Primary Care Unavail CAS Figueroa Attending Unavailable CAS DOWELL Attending Unavailable Allergies Allergy Classification Reported Allergen(s) Allergy Type Date of Onset Reaction(s) Facility Aluminum aspirin (1 source) Aluminum aspirin Drug Allergy 09-04-19 12 [facility] [employer] Cephalosporins (antibiotic) (2 sources) Cefaclor Drug Allergy 09-04-19 12 Shortness Of Breath, Rash [employer] Phone: drospirenone / Ethinyl Estradiol (1 source) drospirenone / Ethinyl Estradiol Drug Allergy 09-04-19 12 [employer] Phone: Ethinyl Estradiol / Norethindrone (1 source) Ethinyl Estradiol / Norethindrone Drug Allergy 09-04-19 12 [employer] Phone: Latex (1 source) Latex Substance Allergy 09-04-19 12 Swelling, Rash [employer] Phone: Macrolides (antibiotic) (1 source) Erythromycin Drug Allergy 09-04-19 12 Shortness Of Breath [employer] Phone: NSAIDs (1 source) Ibuprofen Drug Allergy 09-04-19 12 [employer] Phone: Penicillins (antibiotic) (1 source) Penicillins Drug Allergy 09-04-19 12 [facility] [employer] Phone: rofecoxib (1 source) rofecoxib Drug Allergy 09-04-19 12 [employer] Phone: Sulfonamides (antibiotic) (1 source) Sulfonamides (Antibiotic) Drug Allergy 03-21-19 16 [employer] Unclassified (8 sources) Clindamycin/Lincomy juan Propensity to adverse reactions to drug 09-04-19 12 [facility] [employer] Phone: Unclassified (20 sources) Iodides; Translations: [IODIDES] Propensity to adverse reactions to drug 09-04-19 12 Unknown, Anaphylaxis [employer] Phone: Unclassified (9 sources) Lavender Oil Propensity to adverse reactions to drug 06-14-19 21 Anaphylaxis [employer] (12 sources) Aluminum aspirin; Translations: [ASPIRIN] Drug Allergy 09-04-19 12 Rash, Angioedema, Unknown [employer] (20 sources) Cefaclor; Translations: [cefaclor] Drug Allergy 09-04-19 12 Shortness Of Breath, Anaphylaxis, Swelling, Unknown (qualifier value) [employer] Phone: (20 sources) Cefuroxime; Translations: [CEFUROXIME AXETIL] Drug Allergy 09-04-19 12 Rash, Unknown, Shortness of Breath [employer] Phone: (20 sources) drospirenone / Ethinyl Estradiol; Translations: [DROSPIRENONE-ETHIN YL ESTRADIOL] Drug Allergy 09-04-19 12 Unknown, Other: See Comments [employer] Phone: (20 sources) Erythromycin; Translations: [ERYTHROMYCIN] Drug Allergy 09-04-19 12 Shortness Of Breath, Swelling, Unknown [employer] Phone: (8 sources) Ethinyl Estradiol / Norethindrone Drug Allergy 09-04-19 12 [employer] Phone: (13 sources) Ibuprofen; Translations: [ibuprofen] Drug Allergy 09-04-19 12 Unknown (qualifier value), Rash, Unknown [employer] (20 sources) Latex; Translations: [LATEX] Propensity to adverse reactions to drug 09-04-19 12 Swelling, Rash, Itching, Unknown, Eruption of skin (disorder) [employer] Phone: (9 sources) Penicillins; Translations: [PENICILLINS] Propensity to adverse reactions to drug 09-04-19 12 Rash [employer] Phone: (20 sources) rofecoxib Drug Allergy 09-04-19 12 Unknown, Rash [employer] Phone: (6 sources) Sulfonamides (Antibiotic) Propensity to adverse reactions to drug 03-21-19 16 [employer] (20 sources) Aspirin; Translations: [aspirin] Drug Allergy 09-04-19 12 Unknown, Angioedema, Unknown (qualifier value), Rash [facility] (20 sources) Clindamycin; Translations: [clindamycin] Drug Allergy 02-23-19 15 Swelling, Shortness of Breath, Rash, Unknown (qualifier value) [facility] (20 sources) Contrast media; Translations: [CONTRAST DYE] Drug Allergy 09-04-19 12 Anaphylaxis [facility] (20 sources) Naproxen; Translations: [NAPROXEN] Drug Allergy 09-07-19 21 Swelling, Angioedema [facility] (19 sources) Penicillins Propensity to adverse reactions to drug 02-23-19 15 Rash, Itching [facility] (20 sources) Sulfonamides (Antibiotic); Translations: [SULFA (SULFONAMIDE ANTIBIOTICS)] Drug Allergy 03-21-19 16 Swelling, Shortness of Breath [facility] (20 sources) Lavender (Lavandula Angustifolia); Translations: [LAVENDER (LAVANDULA ANGUSTIFOLIA)] Drug Allergy 06-14-19 21 Anaphylaxis [facility] (4 sources) Eucalyptus oil Drug Allergy 10-24-19 21 [facility] (20 sources) gatifloxacin; Translations: [GATIFLOXACIN] Drug Allergy 12-22-19 15 Diarrhea [facility] Work Phone: (18 sources) Norethindrone-Ethin Estradiol; Translations: [NORETHINDRONE-ETHI N ESTRADIOL] Propensity to adverse reactions to drug 06-09-19 22 Unknown [facility] (20 sources) Eucalyptus extract; Translations: [EUCALYPTUS] Drug Allergy 10-24-19 21 Anaphylaxis [facility] (20 sources) levoFLOXacin; Translations: [LEVOFLOXACIN] Drug Allergy 11-12-19 21 Rash [facility] (19 sources) metroNIDAZOLE; Translations: [METRONIDAZOLE] Drug Allergy 03-02-19 22 Unknown [facility] (20 sources) Sulfamethoxazole / Trimethoprim; Translations: [SULFAMETHOXAZOLE-T RIMETHOPRIM] Drug Allergy 01-24-20 14 Unknown, Other (See Comments) [facility] (20 sources) Fish; Translations: [FISH CONTAINING PRODUCTS] Drug Allergy 07-26-19 22 Hives [facility] Work Phone: (20 sources) Shellfish; Translations: [SHELLFISH DERIVED] Drug Allergy 07-26-19 22 Hives [facility] Work Phone: (20 sources) Penicillins Propensity to adverse reactions to drug 09-04-19 12 Rash, Itching [facility] (20 sources) Penicillin G; Translations: [PENICILLIN G BENZATHINE] Drug Allergy 08-19-19 22 Unknown [facility] Work Phone: (6 sources) Iodine; Translations: [iodine] Drug Allergy 05-25-19 23 Unknown (qualifier value) [facility] (6 sources) Macrolides (Antibiotic); Translations: [macrolide antibiotics] Drug allergy 09-04-19 12 Allergy - specialty (qualifier value) [facility] (6 sources) Penicillin; Translations: [penicillin] Drug Allergy Unknown (qualifier value) [facility] (6 sources) Sulfonamides (Antibiotic); Translations: [sulfa drugs] Drug allergy Allergy - specialty (qualifier value) [facility] (9 sources) valACYclovir; Translations: [valacyclovir] Drug Allergy 10-06-19 22 Anaphylaxis (disorder), Shortness Of Breath, Anaphylaxis [facility] (7 sources) Povidone-Iodine; Translations: [povidone iodine topical] Drug Allergy 05-25-19 23 Eruption of skin (disorder), Rash [facility] (2 sources) Seafood Propensity to adverse reactions to drug 01-09-20 22 Hives, Rash [facility] Work Phone: (4 sources) rofecoxib; Translations: [ROFECOXIB] Drug Allergy 09-04-19 12 Rash, Unknown [facility] (3 sources) IODINATED CONTRAST MEDIA; Translations: [IODINATED CONTRAST MEDIA] Propensity to adverse reactions to drug (disorder) 02-23-19 15 [facility] (1 source) Aspirin Drug Allergy 03-12-19 15 [facility] (3 sources) Cefaclor; Translations: [Ceclor] Drug Allergy 03-12-19 15 [facility] (2 sources) Cefuroxime; Translations: [Ceftin] Drug Allergy 03-12-19 15 [facility] (1 source) Clindamycin Drug Allergy 03-12-19 15 [facility] (1 source) Erythromycin Drug Allergy 03-12-19 15 [facility] (1 source) Eucalyptus extract Drug Allergy 10-24-19 21 [facility] (1 source) gatifloxacin Drug Allergy 12-22-19 15 [facility] (2 sources) Ibuprofen; Translations: [Motrin] Drug Allergy [facility] (1 source) Iodine (And Iodine Containting Drugs) Drug allergy (disorder) 03-12-19 15 [facility] (1 source) Latex Drug allergy (disorder) 03-12-19 15 [facility] (1 source) levoFLOXacin Drug Allergy 11-12-19 21 [facility] (1 source) Naproxen Drug Allergy 08-07-19 21 [facility] (1 source) Penicillins Drug allergy (disorder) 03-12-19 15 [facility] (1 source) rofecoxib Drug Allergy 03-12-19 15 [facility] (1 source) Sulfamethoxazole / Trimethoprim Drug Allergy 02-23-19 21 [facility] (1 source) Sulfonamides (Antibiotic) Drug allergy (disorder) 03-12-19 15 [facility] (1 source) valACYclovir Drug Allergy [facility] (3 sources) buPROPion; Translations: [BUPROPION] Drug Allergy 06-22-19 23 Other (See Comments) [facility] (2 sources) dimethicone; Translations: [DIMETHICONE] Drug Allergy 07-08-19 23 [facility] (1 source) Ibuprofen; Translations: [IBUPROFEN] Drug Allergy 09-04-19 12 [facility] (3 sources) Menthol; Translations: [MENTHOL] Drug Allergy 02-27-19 23 Hives [facility] (2 sources) natural latex rubber; Translations: [LATEX, NATURAL RUBBER] Propensity to adverse reactions to drug (disorder) 09-04-19 12 Swelling, Itching, Rash [facility] (3 sources) zolpidem; Translations: [ZOLPIDEM] Drug Allergy 05-25-19 23 Other (See Comments), Unknown [facility] (2 sources) GLOVES, LATEX WITH ALOE VERA; Translations: [GLOVES, LATEX WITH ALOE VERA] Propensity to adverse reactions to drug (disorder) 08-19-19 22 [facility] (1 source) NORETHINDRONE AC-ETH ESTRADIOL; Translations: [NORETHINDRONE AC-ETH ESTRADIOL] Propensity to adverse reactions to drug (disorder) 09-04-19 12 [facility] (1 source) Sulfamethoxazole Drug Allergy 08-19-19 22 [facility] (1 source) Cefuroxime Drug Allergy 07-08-19 23 [facility] (1 source) Fish - dietary Allergy to substance 07-26-19 22 Hives [facility] (1 source) Gatifloxacin Allergy to substance 12-22-19 15 Diarrhea [facility] (1 source) Latex Allergy to substance 09-04-19 12 Itching, Rash, Swelling, Unknown [facility] (1 source) Penicillins Drug Intolerance 09-04-19 12 Itching, Rash [facility] (1 source) Galcanezumab-Gnlm Propensity to adverse reactions 07-08-19 23 [facility] (1 source) Norethindrone-Eth Estradiol Drug Intolerance 09-04-19 12 [facility] (1 source) CT dye and contrast; Translations: [CT dye and contrast] Propensity to adverse reactions (disorder) [facility] Rep[facility] Medications Current Medications Medication Drug Class(es) [...] every four hours as needed for headache yffbnorqhp-bilbwmgzwkkvk-hgilctml (FIORICET) 50-325-40 MG per tablet Take 1 [...] pain 6 tablet 0 05/20/2021 05/22/2021 Active [id number] 200 actuat albuterol 0.09 mg/actuat metered dose inhaler (20 sources) beta2-Adrenergic Agonist Sta rt: 2 albuterol (PROVENTIL HFA;MARJORIE TOLIN HFA) 90 mcg/actuation inhaler every 4 (four) hours. 0 01/11/2022 Active Start: 01-11-2022 albuterol (PRO VENTIL) (2.5 MG/3ML) 0.083% nebulizer solution Take 3 mLs by nebulization every 6 hours as needed for Wheezing 120 each 3 01/11/2022 Active Start: 01-11-2022 take 1 puff(s) by in halation every six hours as needed for wheezing [...] each 3 11/01/2020 05/20/2021 Discontinued (LIST CLEANUP) take 1 tablet by shaji th in the morning, then take 1 tablet by mouth in the evening, then take 1 tablet by mouth at bedtime albuterol (Proventil) 2 MG tablet Take 2 mg by mouth in the morning and 2 mg in the evening and 2 mg before bedtime. 0 Active End: 10-31-2021 ALBUTEROL INHALATION Inhale as instructed as needed. 0 10/31/2021 Discontinued take 2 puff(s) by in halation every six hours as needed for wheezing albuterol sulfate HFA (PROVENTIL;VENTOLIN;PROAIR) 108 (90 Base) MCG/ACT inhaler Inhale 2 puffs into the lungs every 6 hours as needed for Wheezing 0 Active ALBUTEROL INHALA TION Inhale as instructed as needed. 0 Active Comment on above: Inhale as instructed as needed. arformoterol 0.0075 mg/ml inhalation solution (20 sources) beta2-Adrenergic Agonist Start: 2021 Arformoterol Tartrate (BROVANA) 15 MCG/2ML NEBU Take 1 [...] mL as instr ucted every 12 hours. baclofen 10 mg oral tablet (20 sources) gamma-Aminobutyric Acid-ergic Agonist Start: 02-06-2023 take 1-2 tablets by mouth once daily baclofen (LIORESAL) 10 mg tablet TAKE 1 TO 2 TABLETS BY MOUTH NIGHTLY 60 tablet 5 02/06/2023 Active Start: 2021 baclofen Oral, TID, Refills(s) 0 Start Date: 12/21/21 Status: Ordered Start: 08-24-2021 End: 02-06-2023 take 1-2 tablets by mouth once daily baclofen (LIORESAL) 10 mg tablet Take 1-2 tablets (10-20 mg total) by mouth nightly. 60 tablet 5 06/29/2022 02/06/2023 Discontinued baclofen (Liores al) 10 MG tablet Take by mouth 3 (three) times a day. 0 Active Comment on above: Take 10-20 mg [...] every 12 hours. Inhale over 5-15 minutes 60 actuat budesonide 0.16 mg/actuat / formoterol fumarate 0.0045 mg/actuat metered dose inhaler (20 sources) Corticosteroid, beta2-Adrenergic Agonist Start: 06-12-2022 take 2 puff(s) by mouth twice daily SYMBICORT 160-4.5 mcg/actuation inhaler TAKE 2 PUFFS BY MOUTH TWICE A DAY 0 06/12/2022 Active End: 03-14-2023 take 2 puff(s) by inhalation in the morning budesonide-formoterol (Symbicort) 160-4.5 MCG/ACT inhaler Inhale 2 puffs in the morning and 2 puffs before bedtime. Rinse mouth with water after use to reduce aftertaste and incidence of candidiasis. Do not swallow.. 0 03/14/2023 Discontinued End: 10-31-2021 budesonide-formoterol (SYMBI NIK) 160-4.5 mcg/actuation inhaler Inhale 2 Puffs as instructed as needed. 0 10/31/2021 Discontinued take 2 puff(s) by in halation once daily budesonide-formoterol (SYMBICORT) 160-4.5 MCG/ACT AERO Inhale 2 puffs into the lungs daily 0 Active budesonide-formo terol (SYMBICORT) 160-4.5 mcg/actuation inhaler Inhale 2 Puffs as instructed as needed. 0 Active Comment on above: Inhale 2 Puffs as in structed as needed. cetirizine hydrochloride 10 mg oral tablet (20 [...] Take 10 mg by mouth as needed. cholecalciferol 0.125 mg oral tablet (20 sources) Vitamin D Start: take 1 tablet by mouth once daily D-5000 125 MCG (5000 UT) tablet Indications: Vitamin D deficiency, unspecified , Vitamin D deficiency TAKE 1 TABLET BY MOUTH EVERY DAY 30 tablet 5 03/13/2023 Active Start: 04-29-2021 take 1 tablet by shaji th once daily VITAMIN D-3 125 mcg (5,000 unit) tab Take 5,000 Units by mouth once daily. 0 04/29/2021 Active take 1 capsule by mo uth in the morning cholecalciferol (Vitamin D-3) 125 MCG (5000 UT) capsule Take 5,000 Units by mouth in the morning. 0 Active Cholecalciferol (VITAMIN D3) 50 MCG (2000 UT) CAPS Take by mouth 0 Active Comment on above: Take 5,000 Units by mouth once daily. cholecalciferol, vitamin D3, (VITAMIN D3 ORAL) (1 source) cholecalciferol, vitamin D3, (VITAMIN D3 ORAL) Take 1 capsule by mouth. 0 Active ciprofloxacin 250 mg oral tablet (2 sources) Quinolone Antimicrobial Start: 12-22-19 22 take 1 tablet by mouth once daily Cipro 250 mg Tab See Instructions, 1 tab po day prior to procedure. 1 tab po following procedure., # 2 tab(s), Refills(s) 0, Pharmacy: [facility]/pharmacy #[id number], 162, cm, 12/21/21 8:50:00 EST, Height/Length Dosing, 99, kg, 12/21/21 8:50:00 EST, Weight Dosing Start Date: 12/21/21 Status: Ordered 12 hr dextromethorphan hydrobromide 30 mg / guaiFENesin 600 mg extended release oral tablet (1 source) Uncompetitive D-nnrhgc-V-aspartate Receptor Antagonist, Sigma-1 Agonist take 30-600 mg by mouth once as needed dextromethorphan- guaiFENesin (MUCINEX DM) 30-600 MG per extended release tablet Take 1 tablet by mouth every 12 hours as needed 0 Active DULoxetine 60 mg delayed release oral capsule (20 sources) Serotonin and Norepinephrine Reuptake Inhibitor Start: 12-27-19 23 take 1 capsule by mouth once daily DULoxetine (CYMBALTA) 60 mg capsule Take 1 capsule (60 mg total) by mouth nightly. 0 12/26/2022 Active Start: 01-28-2022 take 1 capsule by mo uth once daily DULoxetine (CYMBALTA) 30 mg capsule TAKE 1 CAPSULE BY MOUTH EVERY DAY DO NOT CRUSH OR CHEW 0 01/28/2022 Active Start: 2021 Cymbalta Oral, Refills(s) 0 Start Date: 12/21/21 Status: Ordered Comment on above: TAKE 1 CAPSULE BY MO UTH EVERY DAY DO NOT CRUSH OR CHEW famotidine 20 mg oral tablet (20 sources) [...] (FLONASE) 50 mcg/actuation nasal spray Use 1 [place] in each nostril twice daily. 3 Each 11 07/14/2021 10/19/2021 Active take 2 spray(s) nasa l route in the morning fluticasone (Flonase Sensimist) 27.5 MCG/SPRAY nasal spray Administer 2 sprays into each nostril in the morning. 0 Active take 2 spray(s) nasa l route once daily fluticasone (VERAMYST) 27.5 mcg/actuation nasal spray Administer 2 sprays into each nostril once daily. 0 Active Fluticasone Furo ate (FLONASE SENSIMIST) 27.5 mcg/actuation nasal spray 1 spray in each nostril 0 Active Comment on above: Use 1 [place] in each nostril twice daily. 1 spray in each nost ril 120 actuat fluticasone propionate 0.115 mg/actuat / salmeterol 0.021 mg/actuat metered dose inhaler (1 source) Corticosteroid, beta2-Adrenergic Agonist Start: take 2 puff(s) by inhalation in the morning fluticasone-salmetero l (Advair) 115-21 MCG/ACT inhaler Indications: Moderate persistent asthma without complication (CMS/HCC) Inhale 2 puffs in the morning and 2 puffs before bedtime. Rinse mouth with water after use to reduce aftertaste and incidence of candidiasis. Do not swallow.. 36 g 3 03/14/2023 Active Start: 03-14-2023 take 2 puff(s) by in halation in the morning fluticasone-salmeterol (Advair) 115-21 MCG/ACT inhaler Indications: Moderate persistent asthma without complication (CMS/HCC) Inhale 2 puffs in the morning and 2 puffs before bedtime. Rinse mouth with water after use to reduce aftertaste and incidence of candidiasis. Do not swallow.. 36 g 3 03/14/2023 Active 1.5 ml fremanezumab-vfrm 150 mg/ml auto-injector (20 sources) Start: 10-05-2022 fremanezumab-v frm (AJOVY 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) 225 mg/1.5 mL Inject 1.5 mL (225 mg total) under the skin every 28 days. 4.5 mL 0 10/05/2022 Active Start: 2021 inject 1 mg by subcu taneous injection every month Ajovy mg, SubCutaneous, qMonth, [...] Xopenex (20 sources) beta2-Adrenergic Agonist Start: 2021 Xopenex NEB, TID, Refills(s) 0 Start Date: 12/21/21 [...] breath. levocetirizine dihydrochloride 5 mg oral tablet (2 sources) Histamine-1 Receptor Antagonist Start: 023 take 1 mg by mouth once daily in the evening Xyzal 5 mg oral tablet mg, tab(s), Oral, qPM, Refill(s) 0 Start Date: 09/05/22 Status: Ordered levothyroxine sodium 0.1 mg oral tablet (20 sources) l-Thyroxine Start: 023 take 1 tablet by mouth in the morning Synthroid 100 MCG tablet TAKE 1 TABLET (100 MCG TOTAL) BY MOUTH IN THE MORNING 0 01/07/2023 Active Start: 01-18-2022 take 0.5 tablet by m outh every week levothyroxine (SYNTHROID) 112 MCG tablet [...] before breakfast. Takes 1.5 tablets on Wednesdays linagliptin 5 mg oral tablet (1 source) Dipeptidyl Peptidase 4 Inhibitor Start: 01-17-20 take 1 tablet by mouth in the morning linaGLIPtin (Tradjenta) 5 MG tablet Indications: Type 2 diabetes mellitus with hyperglycemia, without long-term current use of insulin ([facility]) Take 1 tablet (5 mg) by mouth in the morning. 90 tablet 3 01/16/2023 Active LORazepam 0.5 mg oral tablet (20 sources) Benzodiazepine Start: 06-29-19 End: 03-10-19 23 take 1 tablet by mouth at bedtime [...] mg by mouth twice daily as needed. Magnesium (20 sources) magnesium 250 mg tablet Take 1 tablet (250 mg total) by mouth. 0 Active Magnesium 250 mg tab Take 250 mg by mouth. 0 Active Comment on above: Take 250 mg by mouth . Magnesium Oxide (1 source) magnesium oxide (Mag-Ox) 400 mg tablet 400 mg in the morning and 400 mg before bedtime. 0 Active methocarbamol 500 mg oral tablet (2 sources) Muscle Relaxant Start: 06-22-19 take 1-2 tablets by mouth four times daily as needed for pain methocarbamol (ROBAXIN) 500 MG tablet 1 to 2 pills by mouth 4 times daily as needed muscle pain/spasm 56 tablet 1 06/21/2021 Active 2 ml metoclopramide 5 mg/ml prefilled syringe (5 sources) Dopamine-2 Receptor Antagonist Start: 04-17-19 metoclopramide (REGLAN) injection 10 mg Start: 04-16-2021 End: 04-28-2021 take 1 tablet by mouth three times daily as needed for vomiting metoclopramide (REGLAN) 10 MG tablet Take 1 tablet by mouth 3 times daily as needed (vomiting) 12 tablet 0 04/16/2021 Active ondansetron 4 mg disintegrating oral tablet (7 sources) Serotonin-3 Receptor Antagonist Start: 01-18-2022 take 1 tablet by mouth every six hours as needed ondansetron ODT (ZOFRAN ODT) 4 mg disintegrating tablet 1 (ONE) TABLET BY MOUTH EVERY SIX HOURS, NEEDED 0 01/18/2022 Active Start: 04-16-2021 End: 04-16-2021 ondansetron (ZOFRAN) injecti on 4 mg Start: 04-16-2021 End: 04-16-2021 ondansetron [...] above: ondansetron 4 mg dis integrating tablet pantoprazole 40 mg delayed release oral tablet (2 sources) Proton Pump Inhibitor take 1 tablet by mouth before mealtime pantoprazole (ProtoNix) 40 MG EC tablet Take 40 mg by mouth in the morning. Take before meals. Do not crush, chew, or split. . 0 Active perflutren lipid microspheres 1.3 mL in NaCl (PF) 0.9% 10 mL injection (DEFINITY) (20 sources) Start: 07-22-19 End: 10-21-19 23 perflutren lipid microspheres 1.3 mL in NaCl (PF) 0.9% 10 mL injection (DEFINITY) predniSONE 10 mg oral tablet (12 sources) Start: 01-12-20 predniSONE (DELTASONE) 10 MG tablet 4 tabs daily for [...] daily. pyridostigmine bromide 60 mg oral tablet (4 sources) Start: 07-21-2022 End: 07-21-2023 pyridostigmine (MESTINON) 60 mg tablet Take 1 tablet (60 mg total) by mouth. 0 07/21/2022 07/21/2023 Active take 1 tablet by mouth in the mo rning pyridostigmine (Mestinon) 180 MG ER tablet Take 180 mg by mouth in the morning and 180 mg before bedtime. Do not crush or chew.. 0 Active Comment on above: Take by mouth. rimegepant 75 mg disintegrating oral tablet (20 sources) Start: 06-29-2022 rimegepant (NURTEC ODT) 75 mg tablet,disintegrating Dissolve 1 tablet on tongue as needed (migraine). 8 tablet 11 06/29/2022 Active Start: 09-28-2020 End: 07-06-2021 take 1 tablet [...] Comment on above: Take 1 tablet by shaij th once daily as needed. Take 1 tablet by shaji th once daily as needed. No more than 1 dose in 24 hours. Rimegepant Sulfate (NURTEC PO) (1 source) Rimegepant Sulfa te (NURTEC PO) Take by mouth. 0 Active sertraline 100 mg oral tablet (20 sources) Serotonin Reuptake Inhibitor Start: 12-16-2021 sertraline 100 mg Tab Refills(s) 0 Start Date: 12/16/21 Status: Ordered Start: 06-11-2019 take 2 tablets by mo uth once daily at bedtime sertraline (ZOLOFT) 100 mg tablet Take 200 mg by mouth daily at bedtime. 0 06/11/2019 Active sertraline (Zolo ft) 50 MG tablet Take by mouth Daily. 0 Active take 0.5 tablet by m outh in the morning sertraline (ZOLOFT) 100 mg tablet Take 0.5 tablets (50 mg total) by mouth in the morning. 0 Active sertraline (ZOLO FT) 100 MG tablet [...] once daily. 125 ml sodium chloride 9 mg/ml prefilled syringe (20 sources) Start: 07-21-2021 End: 10-20-2022 sodium chloride 0.9 % (flush) 10 mL (BD POSIFLUSH) Start: 05-20-2021 End: [...] stone, # 30 tab(s), Refills(s) 1, Pharmacy: [facility]/pharmacy #[id number], 162, cm, 09/05/22 8:28:00 EDT, Height/Length Dosing, 99, kg, 09/05/22 8:28:00 EDT, Weight Dosing Start Date: 09/05/22 Status: Ordered traZODone hydrochloride 100 mg oral tablet (9 sources) Serotonin Reuptake Inhibitor End: 06-10-2021 take 1 tablet by mouth once daily traZODone (DESYREL) 100 MG tablet Take 100 mg by mouth daily 0 Active Comment on above: Take 100 mg by mouth as needed. ubrogepant 100 mg oral tablet (20 sources) Start: 06-29-2022 take 1 tablet by mouth once as needed UBRELVY 100 mg tablet Take 100 mg by mouth once as needed (migraine) for up to 1 dose. 16 tablet 12 06/29/2022 Active Start: 08-25-2021 take 1 tablet by shaji th every two hours as needed, then take [...] mouth once as needed 0 08/24/2021 Active Ubrogepant (Ubre lvy) 50 MG tablet Take by mouth. 0 Active Comment on above: TAKE 1 TABLET BY SHAJI TH AT ONSET OF MIGRAINE. MAY REPEAT IN 2 HOURS NEEDED. MAX 2 TABLET IN 24 HOURS vitamin b12 1 mg sublingual tablet (2 sources) Vitamin B12 Start: take 1 tablet under the tongue in the morning cyanocobalamin (VITAMIN B12) 1,000 mcg tablet, sublingual Place 1 tablet (1,000 mcg total) under the tongue in the morning. 30 tablet 11 01/04/2023 Active take 2 tablets by mouth in the m orning cyanocobalamin (Vitamin B-12) 500 MCG tablet Take 1,000 mcg by mouth in the morning. 0 Active Vitamin B12, Folate, and Acetylcysteine oral tablet (4 sources) Start: 12-16-2021 take 1 tablet by mouth once daily Vitamin B12, Folate, and Acetylcysteine oral tablet tab(s), Oral, Daily, Refill(s) 0 Start Date: 12/16/21 Status: Ordered Vitamin D3 (4 sources) Start: 12-16-2021 Vitamin D3 Refills(s) 0 Start Date: 12/16/21 [...] oral capsule (20 sources) Anti-epileptic Agent Start: 02-06-2023 take 1 capsule by mouth once daily at dinner zonisamide (ZONEGRAN) 100 mg capsule TAKE 1 CAPSULE (100 MG TOTAL) BY MOUTH DAILY BEFORE EVENING MEAL. 90 capsule 1 02/06/2023 Active Start: 10-03-2022 End: 02-06-2023 take 2 capsules by mouth once daily at dinner zonisamide (ZONEGRAN) 100 mg capsule Take 2 capsules (200 mg total) by mouth Daily before evening meal. 180 capsule 1 10/03/2022 02/06/2023 Discontinued Start: 11-17-2020 End: 07-06-2021 take 1 mg by mouth once daily zonisamide 100 mg Cap mg cap(s), Oral, Daily, Refills(s) 0 Start Date: 12/16/21 Status: Ordered take 2 capsules by m out once daily zonisamide (ZONEGRAN) 25 MG capsule Take 50 mg by mouth daily 0 Active Comment on above: Take 1 capsule by mo [facility] once daily. Completed/Discontinued Medications Medication [...] sources) Vitamin C take 1 tablet by mouth once daily Ascorbic Acid 100 mg tablet [...] hydrochloride 0.137 mg/actuat metered dose nasal spray (3 sources) Histamine-1 Receptor Antagonist Start: take 1 spray(s) nasal route at bedtime azelastine 0.1% nasal spray SPRAY 1 SPRAY INTO EACH NOSTRIL IN THE MORNING AND BEFORE BEDTIME DIRECTED 0 09/07/2022 Active Start: 09-05-2022 azelastine madeline al spray Nasal, BID, Refill(s) 0 Start Date: 09/05/22 Status: Ordered Start: 08-10-2022 take 1 spray(s) nasa l route in the morning azelastine (ASTELIN) 137 mcg (0.1 %) nasal spray Indications: Chronic sinusitis Administer 1 spray into each nostril in the morning and 1 spray before bedtime. Use in each nostril as directed. 30 mL 12 08/10/2022 Active Comment on above: SPRAY 1 SPRAY INTO E ACH NOSTRIL IN THE MORNING AND BEFORE BEDTIME DIRECTED onabotulinumtoxina 100 unt injection (20 sources) Acetylcholine Release Inhibitor End: 2021 onabotulinum toxin type A (BOTOX) 100 unit solr by INJECTION(UNSPECIFIED PARENTERAL ROUTES) route every 3 months. 0 10/19/2021 Discontinued (Discontinued by Patient) Comment on above: by INJECTION(UNSPECI FIED PARENTERAL ROUTES) route every 3 months. brexpiprazole 1 mg oral tablet (6 sources) Atypical Antipsychotic Start: 2020 End: 2021 take 1 tablet by mouth once daily REXULTI 1 mg tablet Take 1 mg by mouth once daily. 0 06/14/2020 06/10/2021 Discontinued Comment on above: Take 1 mg by mouth o nce daily. CPAP/BIPAP/OTHER (4 sources) CPAP/BIPAP/OTHER Type .CPAPSettings into a note to see current settings/supplies/DME information. 0 Active Comment on above: Type .CPAPSettings i nto a note to see current settings/supplies/DME information. cyclobenzaprine hydrochloride 10 mg oral tablet (3 sources) Muscle Relaxant End: 2021 cyclobenzaprine (FLEXERIL) 10 mg tablet cyclobenzaprine 10 mg tablet 0 06/10/2021 Discontinued Comment on above: cyclobenzaprine 10 m g tablet dexamethasone phosphate 10 mg/ml injectable solution (1 source) Corticosteroid Start: 2020 End: 2020 dexamethasone (DECADRON) injection 10 mg Start: 06-13-2020 End: 06-13-2020 dexamethasone (DECADRON) inj ection 10 mg 1 ml diphenhydrAMINE hydrochloride 50 mg/ml cartridge (20 sources) Histamine-1 Receptor Antagonist Start: 09-05-2021 End: 09-05-2021 diphenhydrAMINE (BENADRYL) injection 25 mg Start: 06-04-2021 End: 06-04-2021 diphenhydrAMINE (BENADRYL) i njection 50 mg Start: 04-16-2021 End: 04-16-2021 diphenhydrAMINE (BENADRYL) i njection 25 mg diphenhydrAMINE (BENADRYL) 25 mg capsule Take by mouth every 6 (six) hours as needed. 0 Active take 2 tablets by [facility] every six hours as needed diphenhydrAMINE (BENADRYL) [...] oral capsule (10 sources) Tetracycline-class Drug Start: 06-07-19 End: 07-02-19 take 1 capsule by mouth twice daily doxycycline monohydrate (MONODOX) 100 mg capsule TAKE 1 CAPSULE BY MOUTH TWICE A DAY FOR 10 DAYS 0 06/06/2021 07/01/2021 Discontinued Comment on above: TAKE 1 CAPSULE BY [facility] TWICE A DAY FOR 10 DAYS 1 ml EPINEPHrine 1 mg/ml injection (20 sources) alpha-Adrenergic Agonist, beta-Adrenergic Agonist, Catecholamine Start: 09-06-19 End: 09-06-19 EPINEPHrine PF 1 MG/ML injection Start: 06-05-2021 EPINEPHrine (E PIPEN) 0.3 mg/0.3 mL auto-injector INJECT 0.3 MLS INTO THE MUSCLE ONCE NEEDED (SEVERE ALLERGIC REACTION) 0 06/05/2021 Active Start: 06-04-2021 EPINEPHrine (E PIPEN 2-ERMA) 0.3 MG/0.3ML SOAJ injection Inject 0.3 mLs into the muscle once as needed (severe allergic reaction) 2 each 1 06/04/2021 Active EPINEPHrine (EPI PEN 2-ERMA IJ) Inject as directed. 0 Active EPINEPHrine 0.1 mg/0.1 mL AutoInjector as needed. 0 Active End: 06-04-2021 EPINEPHrine (EPIPEN IJ) Inje ct as directed 0 06/04/2021 Discontinued (LIST CLEANUP) EPINEPHrine (EPI PEN IJ) Inject as directed 0 Active Comment on above: as needed. EPINEPHrine (EPINEPHrine HCL) 1 mg/mL injection 0.3 mg (1 source) Start: 09-05-2021 End: 09-05-2021 EPINEPHrine (EPINEPHrine HCL) 1 mg/mL injection 0.3 mg 168 hr estradiol 0.09208 mg/hr transdermal system (4 sources) Estrogen Start: [...] THE SKIN ONCE PER WEEK estrogens, conjugated (snf) 0.625 mg oral tablet (3 sources) Estrogen [...] oral tablet (10 sources) Azole Antifungal Start: 06-07-19 End: 07-02-19 fluconazole (DIFLUCAN) 150 mg tablet TAKE 1 TABLET BY MOUTH ONCE AND REPEAT IN 3 DAYS IF NEEDED 0 06/06/2021 07/01/2021 Discontinued Comment on above: TAKE 1 TABLET BY SHAJI TH ONCE AND REPEAT IN 3 DAYS IF NEEDED formoterol fumarate 0.01 mg/ml inhalation solution (1 source) beta2-Adrenergic Agonist Start: 11-01-19 End: 11-04-19 take 2 mL by inhalation every twelve [...] oral tablet (6 sources) Loop Diuretic End: 06-11-19 furosemide (LASIX) 40 mg tablet Take 40 mg by mouth. 0 06/10/2021 Discontinued Comment on above: Take 40 mg by mouth. 1 ml galcanezumab-gnlm 120 mg/ml prefilled syringe (20 sources) Start: 09-06-19 End: 10-20-19 inject 1 mL by subcutaneous injection every [...] sources) Nonsteroidal Anti-inflammatory Drug, Cyclooxygenase Inhibitor Start: 08-18-19 21 End: 06-11-19 22 take 1 tablet by mouth four times daily as needed keTORolac (TORADOL) 10 mg tablet TAKE 1 TABLET BY MOUTH FOUR TIMES A DAY NEEDED 0 08/17/2020 06/10/2021 Discontinued Start: 06-13-2020 End: 06-13-2020 ketorolac (TORADOL) injectio n 30 mg Comment on above: TAKE 1 TABLET BY SHAJI FOUR TIMES A DAY NEEDED lidocaine 0.05 mg/mg medicated patch (13 sources) Antiarrhythmic, Amide Local Anesthetic Start: 06-14-19 End: 07-02-19 lidocaine (LIDODERM) 5 % PLACE 1 PATCH TOPICALLY ON THE SKIN DAILY FOR 10 DAYS. LEAVE ON 12 HOURS, THEN LEAVE OFF 12 HOURS. 0 06/13/2020 07/01/2021 Discontinued Comment on above: PLACE 1 PATCH TOPICA LLY ON THE SKIN DAILY FOR 10 DAYS. LEAVE ON 12 HOURS, THEN LEAVE OFF 12 HOURS. mecobalamin 1 mg sublingual tablet (20 sources) Start: 04-06-19 mecobalamin, vitamin B12, 1,000 mcg ODT once daily. 0 04/05/2021 Active Comment on above: once daily. metFORMIN hydrochloride 500 mg oral tablet (6 sources) Biguanide End: 06-11-19 metFORMIN (GLUCOPHAGE) 500 mg tablet Take 500 mg by mouth. 0 06/10/2021 Discontinued Comment on above: Take 500 mg by mouth . methylPREDNISolone 125 mg injection (3 sources) Corticosteroid Start: 09-06-19 End: 09-06-19 methylPREDNISolone sodium (SOLU-MEDROL) injection 60 mg Start: [...] morphine (PF) injection 2 mg 2 ml orphenadrine citrate 30 mg/ml injection (1 source) Muscle Relaxant Start: 06-21-2021 End: 06-21-2021 orphenadrine (NORFLEX) injection 60 mg prazosin 5 mg oral capsule (20 sources) alpha-Adrenergic Tej Start: 06-29-2021 End: 04-18-2022 take 1 capsule by mouth once daily at bedtime prazosin (MINIPRESS) 5 mg cap Take 5 mg by mouth daily at bedtime. 0 06/29/2021 04/18/2022 Discontinued Comment on above: Take 5 mg by mouth d aily at bedtime. rOPINIRole 0.25 mg oral tablet (14 sources) [...] sources) Serotonin-1b and Serotonin-1d Receptor Agonist End: 1 take 2 tablets by mouth once as needed SUMAtriptan (IMITREX) 50 MG tablet Take 100 mg by mouth once as needed for Migraine 0 11/01/2020 Discontinued (Therapy completed) tiZANidine 4 mg oral tablet (4 sources) Central alpha-2 Adrenergic Agonist Start: 1 End: 2 take 1 tablet by mouth every eight hours as needed for pain tiZANidine (ZANAFLEX) 4 MG tablet Take 1 tablet by mouth every 8 hours as needed (Back pain) 10 tablet 0 06/13/2020 05/20/2021 Discontinued (LIST CLEANUP) Zinc (20 sources) End: 3 Zinc 50 mg tab Take by mouth. 0 10/02/2022 Discontinued Zinc 50 mg tab T kana by mouth. 0 Active Comment on above: Take by mouth. Problems Active Problems Problem Classification Problem Date Documented Da te Episodic/Chronic Abdominal hernia (5 sources) Right inguinal hernia ; Translations: [Unilateral inguinal hernia, without obstruction or gangrene, not specified as recurrent] Onset: 3 12-16-2021 Episodic Anxiety disorders (20 sources) Anxiety; Translations: [Anxiety disorder, unspecified] Onset: 6 Resolved: 3 Chronic Asthma (20 sources) Exacerbation of moderate persistent asthma; Translations: [Moderate persistent asthma with (acute) exacerbation] Onset: 6 Resolved: 3 Chronic Calculus of urinary tract (2 sources) [...] [Coagulation defect, unspecified] Onset: 5 02-23-2014 Chronic Diabetes mellitus with complications (5 sources) Type 2 diabetes mellitus with hyperglycemia; Translations: [TYPE 2 DM W/HYPERGLYCEMIA] Onset: 2 Chronic Diabetes mellitus without complication (7 sources) Type 2 diabetes mellitus; Translations: [Diabetes mellitus] Onset: 1 12-16-2021 Chronic Disorders of lipid metabolism (1 source) Hyperlipidemia; Translations: [Hyperlipidemia, unspecified] Onset: 6 01-12-2023 Chronic Esophageal disorders (20 sources) Gastroesophageal reflux disease; Translations: [Gastro-esophageal reflux disease without esophagitis] Onset: 6 Chronic Essential hypertension (1 source) Hypertensive disorder; Translations: [Essential (primary) hypertension] Chronic Genitourinary symptoms and ill-defined conditions (5 sources) Stress incontinence (female) (male); Translations: [Genuine stress incontinence] Onset: 2 Chronic Genitourinary symptoms and ill-defined conditions (18 sources) Blood in urine; Translations: [Gross hematuria] Onset: 2 Resolved: 3 Episodic Headache; including migraine (10 sources) Chronic intractable migraine without aura; Translations: [Chronic migraine without aura, intractable, without status migrainosus] Onset: 1 Chronic Headache; including migraine (4 sources) Headache; including migraine; Translations: [HEADACHE UNSPECIFIED] Onset: 2 Inflammatory diseases of female pelvic organs (1 source) Hydrosalpinx; Translations: [Chronic salpingitis] Chronic Mood disorders (5 sources) Depressive disorder; Translations: [Depression, unspecified depression type] Onset: 1 Chronic Nausea and vomiting (1 source) Intractable nausea and vomiting; Translations: [Nausea with vomiting, unspecified] Episodic Nutritional deficiencies (6 sources) Vitamin D deficiency; Translations: [Vitamin D deficiency, unspecified] Onset: 3 12-16-2021 Chronic Other aftercare (1 source) Other alf (current) drug therapy; Translations: [OTH HALFWAY CURRENT DRUG THERAPY] Onset: 3 Episodic Other [...] reading, without diagnosis of hypertension] Episodic Other connective tissue disease (3 sources) [...] diseases of bladder and urethra (3 sources) Urethral stricture; Translations: [Unspecified urethral stricture, male, unspecified site] Onset: 3 02-27-2022 Episodic Other ear and sense organ disorders (1 source) Hearing loss; Translations: [Unspecified hearing loss, unspecified ear] Onset: 6 01-12-2023 Chronic Other female genital disorders (5 sources) Pain in female genitalia on intercourse; Translations: [Unspecified dyspareunia] Onset: 3 12-16-2021 Chronic Other gastrointestinal disorders (2 sources) Celiac disease; Translations: [Celiac disease] Onset: 3 Chronic Other gastrointestinal disorders (1 source) Irritable bowel syndrome; Translations: [Irritable bowel syndrome without diarrhea] Onset: 6 01-12-2023 Chronic Other hereditary and degenerative nervous system [...] Onset: 2 Chronic Other infections; including parasitic (12 sources) Late effects of other and unspecified infectious and parasitic diseases; 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] Onset: 2 Chronic Other infections; including parasitic (1 source) Post-viral disorder; Translations: [Sequelae of other specified infectious and parasitic diseases] Onset: 2 02-10-2021 Chronic Other infections; including parasitic (8 sources) [...] 6 04-07-2015 Chronic Other nervous system disorders (3 sources) Disorder of autonomic nervous system; Translations: [Disorder of the autonomic nervous system, unspecified] Onset: 2 Chronic Other nervous system disorders (1 source) Circadian rhythm sleep disorder of shift work type; Translations: [Circadian rhythm sleep disorder, 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 Other nervous system disorders (5 sources) Arachnoid cyst; Translations: [Cerebral cysts] Onset: 6 12-16-2021 Chronic Other nervous system disorders (1 [...] Allergic rhinitis; Translations: [Allergic rhinitis, unspecified] Onset: 6 Chronic Other upper respiratory disease (1 source) Cyst of maxillary sinus; Translations: [Cyst and mucocele of nose and nasal sinus] Episodic Other upper respiratory disease (1 source) Hoarse; Translations: [Dysphonia] Episodic Ovarian cyst (6 sources) Cyst of left ovary; Translations: [Unspecified ovarian cyst, left side] Onset: 3 Episodic Residual codes; unclassified (3 sources) Obstructive sleep apnea syndrome; Translations: [Obstructive sleep apnea (adult) (pediatric)] Onset: 1 Chronic Residual codes; unclassified (1 source) Sleep [...] pattern] Onset: 2 Chronic Residual codes; unclassified (2 sources) Hypersomnia with sleep apnea; Translations: [Hypersomnia, unspecified] Onset: 2 03-02-2021 Chronic Residual codes; unclassified (1 source) Unable to comply with treatment; Translations: [Patient's other noncompliance with medication regimen] Episodic Residual codes; unclassified (1 source) Did not attend; Translations: [No-show for appointment] Episodic Screening and history of mental health and substance abuse codes (1 source) History of post-traumatic stress disorder; Translations: [Personal history of other mental and behavioral disorders] Episodic Thyroid disorders (20 sources) Hypothyroidism, unspecified; Translations: [Unspecified acquired hypothyroidism] Onset: 6 Chronic Unclassified (2 sources) X; Translations: [X] [...] Translations: [Post covid-19 condition, unspecified] Onset: 3 Past or Other Problems Problem Classification Problem Date Documented Date Episodic/Chronic Abdominal pain (16 sources) Right lower quadrant pain; Translations: [Right lower quadrant pain] Onset: 12-30-2011 Resolved: 01-16-2023 Episodic Allergic reactions (20 sources) Urticaria; Translations: [Urticaria, unspecified] Onset: 02-10-2021 Episodic Blindness and vision defects (20 sources) Diplopia; Translations: [Diplopia] Onset: 05-24-2021 05-24-2021 Episodic Cardiac dysrhythmias (20 sources) Bradycardia; Translations: [Bradycardia, unspecified] Onset: 12-24-2020 05-24-2021 Episodic Coagulation and hemorrhagic disorders (17 sources) Blood coagulation disorder; Translations: [Hemorrhagic condition, unspecified] Onset: 02-23-2014 Episodic Conditions associated with dizziness or vertigo (20 sources) Orthostatic hypotension; Translations: [Dizziness and giddiness] Onset: 05-24-2021 05-24-2021 Episodic Diabetes mellitus without complication (1 source) Prediabetes; Translations: [PREDIABETES] Onset: 11-16-2021 Episodic E Codes: Adverse effects of medical drugs (20 sources) Adverse reaction to drug; Translations: [Adverse effect of unspecified drugs, medicaments and biological substances, initial encounter] Onset: 07-25-2021 Resolved: 01-16-2023 Episodic Headache; including migraine (3 sources) Headache; Translations: [Worsening headaches] Onset: 12-22-2015 Resolved: 01-16-2023 Episodic Immunizations and screening for infectious disease (1 source) Encounter for screening for human papillomavirus (HPV); Translations: [ENC SCREENING HUMAN PAPILLOMAVIRUS] Onset: 08-04-2021 Episodic Lymphadenitis (4 sources) Lymphadenopathy; Translations: [Generalized enlarged lymph nodes] Onset: 11-16-2021 Episodic Malaise and fatigue (20 sources) Malaise and fatigue; Translations: [Other malaise] Onset: 03-02-2021 05-24-2021 Episodic Mood disorders (1 source) Mood disorders Onset: 01-04-2023 01-04-2023 Nonmalignant breast conditions (2 sources) Unspecified lump in axillary tail of the left breast; Translations: [Unspecified lump in axillary tail of the right breast] Onset: 10-23-2021 Episodic Nonspecific chest pain (11 sources) Chest pain; Translations: [Chest pain, unspecified] Onset: 12-24-2020 Episodic Other circulatory disease (20 sources) Labile blood pressure; Translations: [Other disorder of circulatory system] Onset: 05-24-2021 Resolved: 01-16-2023 05-24-2021 Episodic Other circulatory disease (20 sources) Orthostatic hypotension; Translations: [Orthostatic hypotension] Onset: 08-23-2021 Episodic Other circulatory disease (3 sources) Other disorder of circulatory system; Translations: [Blood pressure instability] Onset: 05-24-2021 Episodic Other connective tissue disease (20 sources) Subjective muscle weakness; Translations: [Muscle weakness (generalized)] Onset: 05-24-2021 05-24-2021 Episodic Other connective tissue disease (1 source) Unspecified symptoms and signs involving the nervous system; Translations: [Other symptoms involving nervous and musculoskeletal systems] Onset: 03-02-2021 03-02-2021 Episodic Other connective tissue disease (2 sources) Muscle spasm of cervical muscle of neck; Translations: [Other muscle spasm] Onset: 03-02-2021 03-02-2021 Episodic Other lower respiratory disease (1 source) Dyspnea, unspecified; Translations: [Dyspnea, unspecified] Onset: 01-08-2022 Episodic Other nervous system disorders (1 source) Impaired cognition; Translations: [Other symptoms and signs involving cognitive functions and awareness] Onset: 03-02-2021 03-02-2021 Episodic Other nervous system disorders (2 sources) Word finding difficulty ; Translations: [Other speech disturbances] Onset: 03-02-2021 03-02-2021 Episodic Other screening for suspected conditions (not [...] genital organs; Translations: [FAM HX MALIG NEOPLSM OT GENIT ORGN] Onset: 10-23-2021 Episodic Residual codes; unclassified (2 sources) Memory impairment; Translations: [Other amnesia] Onset: 03-02-2021 03-02-2021 Episodic Spondylosis; intervertebral disc disorders; other back problems (3 sources) Pain in thoracic spine; Translations: [Neck pain] Onset: 03-02-2021 03-02-2021 Episodic Sprains and strains (2 sources) Low back strain; Translations: [Strain of muscle, fascia and tendon of lower back, initial encounter] Onset: 01-30-2022 Episodic Syncope (9 sources) Near syncope; Translations: [Syncope and collapse] Onset: 05-24-2022 Resolved: 01-16-2023 Episodic Unclassified (1 source) LOW BACK PAIN, UNSPECIFIED; Translations: [LOW BACK PAIN, UNSPECIFIED] Onset: 02-15-2022 Unclassified (1 source) Post covid-19 condition, unspecified; Translations: [Post covid-19 condition, unspecified] Onset: 05-24-2022 Viral infection (6 sources) Disease caused by 2019-nCoV; Translations: [COVID-19] Onset: 12-24-2020 Resolved: 01-16-2023 Episodic Results Test Name Value Interpretation Reference Range Facility Ambulatory Visit Summaryon 0 02-13-2023 Ambulatory Visit Summary LEANA TRAN :1985 Visit Date:02/13/2023 Ambulatory Visit Instructions Your Diagnosis GERD (gastroesophageal reflux disease), Duodenogastric bile reflux BMI 38.0-38.9,adult Your Care Team Attending Physician - MARLON PEREZ, Tesfaye Almonte Primary Care Physician - CAS DOWELL MD This Is Your Medications List pantoprazole (Pantoprazole [address] Tab) Contact prescribing physician if questions or concerns [...] mg Tab) montelukast (Singulair 10 mg Tab) rimegepant (Nurtec ODT) sertraline (sertraline 100 mg Tab) sucralfate (Carafate 1 gram Tab) tamsulosin (tamsulosin 0.4 mg Cap) ubrogepant (Ubrelvy) zonisamide (zonisamide 100 mg Cap) Procedures Performed EGD - esophagogastroduodenoscopy (01/31/2023), Cystourethroscopy with dilation of urethral stricture (01/23/2022), Abdominal hysterectomy (03/17/2019), Salpingectomy (03/17/2019), Laparoscopic cholecystostomy (04/08/2009), Appendectomy, delivery, Colonoscopy, EGD - esophagogastroduodenoscopy, Endometrial ablation, Insertion of electrocardiography loop recorder using fluoroscopic guidance, Laparoscopic lysis of adhesions, Nasal septoplasty, Tubal ligation, Tympanostomy. What to do next Scheduled Follow-Up Appointments Sunday 9:00 AM EDT With: LORAINE RUBALCAVA PA-C Where: [facility] Normal [facility] General Surgery Office/Clini c Noteon 02-13-2023 General Surgery Office/Clinic Note Chief Complaint post operative follow up HPI Staff 13 day post operative follow up post EGD. Denies change in symptoms. Taking Carafate TID. History of Present Illness s/p EGD due to refractory GERD/bloating; patient with small hiatal hernia, and duodenogastric bile reflux; on Protonix daily, started Carafate tid; reports constipation with Carafate, no change in symptoms. Review of Systems ROS - Provider Constitutional: no fever, no [...] been reviewed and are negative or noncontributory. Assessment/Plan 1. GERD (gastroesophageal reflux disease), (K21.9: Gastro-esophageal reflux disease without esophagitis)Duodenogastric bile reflux increase Pantoprazole to 40 mg bid; frequent small meals; call with problems/questions. Ordered: pantoprazole, 40 mg = 1 tab(s), Oral, BID, # 60 tab(s), Refills(s) 3, Pharmacy: [facility]/pharmacy #[id number], 162, cm, 01/04/23 9:06:00 EST, Height/Length Dosing, 100.5, kg, 01/04/23 9:06:00 EST, Weight Dosing E&M of Est. Patient Low 20-29 Min 38267 3. BMI 38.0-38.9,adult (Z68.38: Body mass index [BMI] 38.0-38.9, adult) recommend diet and exercise. Ordered: E&M of Est. Patient Low 20-29 Min 58217 Follow-up No qualifying data available Problem List/Past Medical History Ongoing Abnormal urine sediment Angiomyolipoma Anxiety and depression Arachnoid cyst Asthma BMI 38.0-38.9,adult Duodenogastric bile reflux Dyspareunia in female GERD (gastroesophageal reflux disease) Gross hematuria Hypothyroidism Insomnia Kidney stone Metabolic syndrome Morbid obesity Myoclonic jerking Obstructive sleep apnea syndrome Ovarian cyst Paresthesia Peripheral edema Platelet dysfunction Right inguinal hernia Stress incontinence Thyroid nodule Type 2 diabetes mellitus Urethral stricture Vitamin D deficiency Historical No qualifying data Procedure/Surgical History EGD - esophagogastroduodenoscopy (01/31/2023), Cystourethroscopy with dilation of urethral stricture (01/23/2022), Abdominal hysterectomy (03/17/2019), Salpingectomy (03/17/2019), Laparoscopic cholecystostomy (04/08/2009), Appendectomy, delivery, Colonoscopy, EGD - esophagogastroduodenoscopy, Endometrial ablation, Insertion of electrocardiography loop recorder using fluoroscopic guidance, Laparoscopic lysis of adhesions, Nasal septoplasty, Tubal ligation, Tympanostomy. Medications Ajovy Autoinjector, 225 mg, SubCutaneous, qMonth baclofen, 10 mg, Oral, TID Carafate 1 gram Tab, 1 gm= 1 tab(s), Oral, QIDACHS Cymbalta 60 mg Cap-DR, 60 mg, Oral, Daily EpiPen 2-Erma Flonase Allergy Relief 50 mcg/inh nasal spray, Daily lamotrigine 150 mg Tab, 150 mg= 1 tab(s), Oral, Bedtime magnesium oxide 400 mg Tab, 400 mg= 1 tab(s), Oral, Daily Nurtec ODT, 75 mg, Oral, Once Pantoprazole [address] Tab, 40 mg= 1 tab(s), Oral, BID, 3 refills sertraline 100 mg Tab, 200 mg= 2 tab(s), Oral, Daily Singulair 10 mg Tab, Oral, Daily Symbicort 160/4.5 inhalation aerosol with adapter, 2 puff(s), Inhalation, BID Synthroid 112 mcg Tab, Oral, Daily tamsulosin 0.4 mg Cap, See Instructions, 1 refills Tradjenta 5 mg oral tablet, 5 mg= 1 tab(s), Oral, Daily Ubrelvy, 50 mg, Oral, Once Vitamin D3 zonisamide 100 mg Cap, Oral, Daily Allergies Betadine (Rash) Ceclor (SOB - Shortness of breath) Latex (Rash) Motrin (SOB - Shortness of breath) Valtrex (Anaphylaxis) aspirin (Hives) clindamycin (Rash) iodine (Unknown) macrolide antibiotics (Allergy) penicillin (SOB - Shortness of breath) sulfa drugs (Allergy) Social History Alcohol - Denies Alcohol Use, 01/04/2023 Substance Abuse - Denies Substance Abuse, 01/04/2023 Tobacco Never (less than 100 in lifetime) Tobacco Use:. Never Smokeless Tobacco Use:., 01/04/2023 Family History Basal cell carcinoma: Negative: Mother, Father, Sister and Brother. Cervical cancer: Mother. Diabetes mellitus type 2: Sister. Heart disease: (more content not included)... [facility] Comment on above: Result Comment: Elec tronically Signed By: MARLON PEREZ, Tesfaye Richard\Date and Time Signed: 02/13/23 09:58 EST Operative Reporton Operative Report [id number]#1.00TIFF [facility] Lab Reportson 01-31-2023 Lab Reports [id number]#1.00TIFF [facility] Consultation Noteon 01-27-20 23 Consultation Note [id number]#1.00TIFF [facility] Office Visiton 01-10-2023 Follow-up visit [id number] Megan Tran 1985 F Date Provider Department Center 01/10/2023 [facility] Family History Problem [...] Alive Son Alive Son Alive Level of Service:39189 [place] OFFICE/OUTPATIENT ESTABLISHED LOW MDM 20-29 MIN Normal [facility] Insurance Correspondenceon 1 03-11-2022 Insurance Correspondence [id number]#1.00TIFF Normal [facility] Ambulatory Visit Summaryon 1 03-06-2022 Ambulatory Visit Summary LEANA TRAN :1985 Visit Date:01/04/2023 Ambulatory Visit Instructions Your Diagnosis GERD (gastroesophageal reflux disease) BMI 38.0-38.9,adult Your Care Team Attending Physician - MARLON PEREZ, Tesfaye [place] Primary Care Physician - GRAYSON PEREZ, CAS Referring Physician - GRAYSON PEREZ, CAS This Is Your Medications List Contact prescribing [...] LORAINE RUBALCAVA PA-C Where: [facility] Ambulatory Visit Summary LEANA TRAN :1985 Visit [...] LORAINE RUBALCAVA PA-C Where: [facility] Consent for Procedure/Surger yon 01-04-2023 Consent for Procedure/Surgery [id number]#1.00TIFF [facility] Hemoglobin [id number] By: Alize Kong on 01-01-2023 [facility] Office Visiton 01-01-2023 Follow-up visit [id number] Megan Tran 1985 F Date Provider Department Center 01/01/2023 [facility] Family History Problem Relation Age of [...] Alive Son Alive Son Alive Level of Service:33725 [place] OFFICE/OUTPATIENT ESTABLISHED [facility] 10-19 MIN [facility] 36on 12-25-2022 36 Pt calls stating yareli t she was seen 12/18 at ER for Chest pain an EKG was done and she would like to discuss her results. Normal [facility] Telephoneon 12-25-2022 Telephone [id number] Megan Tran 1985 F Date Provider Department Center 12/25/2022 [facility] Family History Problem [...] Son Alive Son Alive Son Alive Normal [facility] XR CHEST PORTABLEon 12-20-19 XR CHEST PORTABLE EXAMINATION: ONE XRAY VIEW [...] Juan Kidd MD 12/19/22 Final result Normal [facility] Basic Metabolic Profon 12-18 Anion gap [Moles/Vol] 10 mmol/L Normal 10-22 [facility] Comment on above: Performed By: #### B ANTHONY DRAPER, ABIEL #### Lab [address] [place] [address] Java Analyst: Belén Dale MD BUN/CRE Ratio 12 Normal 10-25 [facility] Comment on above: Performed By: #### B MP, CDP, TROPI #### Lab [address] [place], [place] 312[address]83 Java Analyst: Belén Dale MD Calcium [Mass/Vol] 9.5 mg/dL Normal 8.6-10.4 [facility] Comment on above: Performed By: #### B MP, CDP, TROPI #### Lab [address] [place], [place] 37[address]83 Java Analyst: Belén Dale MD Chloride [Moles/Vol] 102 mmol/L Normal 98-107 [facility] Comment on above: Performed By: #### B BARON, CDP, TROPI #### Lab [address] [place], [place] [address]24[address]83 Java Analyst: Belén Dale MD CO2 [Moles/Vol] 26 mmol/L Normal 20-31 [facility] Comment on above: Performed By: #### B BARON CDP, TROPI #### Lab [address] [place], [place] 48[address]183 Java Analyst: Belén Dale MD Creatinine [Mass/Vol] 1.0 mg/dL High 0.5-0.9 [facility] Comment on above: Performed By: #### B BARON CDP, TROPI #### Lab [address] [place], [place] 0378[address] Java Analyst: Belén Dale MD GFR/1.73 sq M.predicted among non-blacks MDRD (S/P/Bld) [Vol rate/Area] mL/min/{1.73_m2} Normal >60 [facility] Comment on above: Result Comment: These results [...] tubular secretion. Performed By: #### B ANTHONY DRAPER TROPI #### Lab [address] [place], [place] [address]3 Java Analyst: Belén Dale MD Glucose [Mass/Vol] 97 mg/dL Normal 70-99 [facility] Comment on above: Performed By: #### B ANTHONY DRAPER, TROPI #### Lab [address] [place] [address] Java Analyst: Belén Dale MD Potassium [Moles/Vol] 4.0 mmol/L Normal 3.7-5.3 [facility] Comment on above: Performed By: #### B ANTHONY DRAPER, TROPI #### [address] [place], [place] [address]83 Java Analyst: Belén Dale MD Sodium [Moles/Vol] 138 mmol/L Normal 135-144 [facility] Comment on above: Performed By: #### B ANTHONY DRAPER TROPI #### Lab [address] [place] [address] Dr. [place], [place] 2745183 Java Analyst: Belén Dale MD Urea nitrogen [Mass/Vol] 12 mg/dL Normal 6-20 [facility] Comment on above: Performed By: #### B ANTHONY DRAPER TROPI #### Lab [address] [place] [address] [place] [address] Java Analyst: Belén Dale MD CBC with Diffon 12-18-2022 Abs. Basophil 0.04 k/uL Normal 0.00-0.20 [facility] Comment on above: Performed By: #### B ANTHONY DRAPER, TROPI #### Lab [address] [place], [place] 8[address]83 Java Analyst: Belén Dale MD Abs.Imm.Granulocyte 0.04 k/uL Normal 0.00-0.30 [facility] Comment on above: Performed By: #### B ANTHONY DRAPER, TROPI #### Lab [address] [place] [address] Dr. [place], [place] [address] Java Analyst: Belén Dale MD Abs.Neutrophil (Seg) 5.01 k/uL Normal 1.50-8.10 [facility] Comment on above: Performed By: #### B BARON CDP, TROPI #### [address] [place], [place] [address] Java Analyst: Belén Dale MD Basophils/100 WBC (Bld) 1 % Normal 0-2 [facility] Comment on above: Performed By: #### B ANTHONY DRAPER, TROPI #### [address] [place], [place] [address] Java Analyst: Belén Dale MD Eosinophils (Bld) [#/Vol] 0.19 10*3/uL Normal 0.00-0.44 [facility] Comment on above: Performed By: #### B ANTHONY DRAPER, TROPI #### [address] [place], [place] [address] Java Analyst: Belén Dale MD Eosinophils/100 WBC (Bld) 3 % Normal 1-4 [facility] Comment on above: Performed By: #### B ANTHONY DRAPER, TROPI #### [address] [place], [place] [address] Java Analyst: Belén Dale MD Erythrocyte distribution width (RBC) [Ratio] 11.6 % Low 11.8-14.4 [facility] Comment on above: Performed By: #### B ANTHONY DRAPER, TROPI #### [address] [place], [facility]83 Java Analyst: Belén Dale MD Hematocrit (Bld) [Volume fraction] 44.3 % Normal 36.3-47.1 [facility] Comment on above: Performed By: #### B BARON CDP, TROPI #### Lab [address] [place], [place] [address]83 Java Analyst: Belén Dale MD Hemoglobin (Bld) [Mass/Vol] 14.8 g/dL Normal 11.9-15.1 [facility] Comment on above: Performed By: #### B MP CDP, TROPI #### [address] [place], [facility]83 Java Analyst: Belén Dale MD Immature granulocytes/100 WBC (Bld) 1 % High 0 [facility] Comment on above: Performed By: #### B ANTHONY DRAPER, TROPI #### [address] [place], [place] [address] Java Analyst: Belén Dale MD Lymphocytes (Bld) [#/Vol] 1.71 10*3/uL Normal 1.10-3.70 [facility] Comment on above: Performed By: #### B BARON CDP, TROPI #### [address] [place], [facility]83 Java Analyst: Belén Dale MD Lymphocytes/100 WBC (Bld) 23 % Low 24-43 [facility] Comment on above: Performed By: #### B ANTHONY DRAPER, TROPI #### [address] [place], [place] [address] Java Analyst: Belén Dale MD MCH (RBC) [Entitic mass] 29.0 pg Normal 25.2-33.5 [facility] Comment on above: Performed By: #### B ANTHONY DRAPER, TROPI #### [address] [place], [place] 284[address]83 Java Analyst: Belén Dale MD MCHC (RBC) [Mass/Vol] 33.4 g/dL Normal 28.4-34.8 [facility] Comment on above: Performed By: #### B MP, CDP, TROPI #### Lab [address] [place], [place] 9[address]483 Java Analyst: Belén Dale MD MCV (RBC) [Entitic vol] 86.9 fL Normal 82.6-102.9 [facility] Comment on above: Performed By: #### B BARON CDP, TROPI #### [facility] [address] [place], [place] [address] Java Analyst: Belén Dale MD Monocytes (Bld) [#/Vol] 0.44 10*3/uL Normal 0.10-1.20 [facility] Comment on above: Performed By: #### B ANTHONY DRAPER, TROPI #### [address] [place], [place] [address]83 Java Analyst: Belén Dale MD Monocytes/100 WBC (Bld) 6 % Normal 3-12 [facility] Comment on above: Performed By: #### B ANTHONY DRAPER, TROPI #### [address] [place] [address] Java Analyst: Belén Dale MD Neutrophil (Seg) 66 % High 36-65 [facility] Comment on above: Performed By: #### B ANTHONY DRAPER, TROPI #### [address] [place], [place] [address]32[address]83 Java Analyst: Belén Dale MD NRBC Automated 0.0 per 100 WBC Normal 0.0 [facility] Comment on above: Performed By: #### B ANTHONY DRAPER, TROPI #### [address] [place], [place] 269[address]183 Java Analyst: Belén Dale MD Platelet mean volume (Bld) [Entitic vol] 9.9 fL Normal 8.1-13.5 [facility] Comment on above: Performed By: #### B ANTHONY DRAPER, TROPI #### [address] [place], [place] 3725283 Java Analyst: Belén Dale MD Platelets (Bld) [#/Vol] 280 10*3/uL Normal 138-453 [facility] Comment on above: Performed By: #### B MP, CDP, TROPI #### Lab [address] [place], [place] [address]83 Java Analyst: Belén Dale MD RBC (Bld) [#/Vol] 5.10 10*6/uL Normal 3.95-5.11 [facility] Comment on above: Performed By: #### B MP, CDP, TROPI #### Lab [address] [place], [place] [address]83 Java Analyst: Belén Dale MD WBC (Bld) [#/Vol] 7.4 10*3/uL Normal 3.5-11.3 [facility] Comment on above: Performed By: #### B BARON, CDP, TROPI #### Lab [address] [place], [place] 6[address]83 Java Analyst: Belén Dale MD D-Dimer Teston 12-18-2022 D-Dimer Test 0.36 ug/mL FEU Normal 0.00-0.59 [facility] Comment on above: Result Comment: [...] Performed By: #### CELESTINA Cam, CDP #### Lab [address] [place] [address] Java Analyst: Belén Dale MD Physician Referralon 023 Physician Referral [id number]#[id number] Normal [facility] [id number] 12-18-2022 SARS-CoV-2 (COVID-19) RNA CHRISTI+probe Ql (Unsp spec) Not detected Normal NOTDET [facility] Comment on above: Result Comment: Rapid NAAT: [...] management decisions. Fact sheet for Healthcare Providers: https://www.fda.gov/media/655039/download Fact sheet for Patients: https://www.fda.gov/media/838639/download Methodology: Isothermal Nucleic Acid Amplification Performed By: #### CELESTINA Cam, CDP #### Lab [address] [place] 269[address]83 Java Analyst: Belén Dale MD Troponinon 12-18-2022 Troponin, High Sens 6 ng/L Normal 0-14 [facility] Comment on above: Result Comment: High Sensitivity Troponin values cannot be compared with other Troponin methodologies. Performed By: #### B MP, CDP, TROPI #### Lab [address] [place] [address] Java Analyst: Belén Dale MD Telemedicine 11-14-2022 Telemedicine [id number] Megan Tran 1985 F Date Provider Department Center 11/14/2022 [facility] Family History Problem [...] Alive Son Alive Son Alive Level of Service:37953 [place] OFFICE/OUTPATIENT ESTABLISHED LOW MDM 20-29 MIN Reason for Visit and Comments: Telehealth Audio/video Visit [871] Normal [facility] CBC W Auto Differential pane l (Bld)on 10-02-2022 Basophils (Bld) [#/Vol] 0.04 10*3/uL Normal <0.11 [facility] Comment on above: Order Comment: Speci men Type: BLOOD SPECIMENOrdering Facility: [facility] Address: [address] [address] Performed By: #### 5 7021-8 ####[facility] LABCLIA [id number] [place] [address] Basophils/100 WBC (Bld) 0.6 % Normal [facility] Comment on above: Order Comment: Speci men Type: BLOOD SPECIMENOrdering Facility: [facility] Address: [address] [address] Performed By: #### 5 7021-8 ####[facility] LABCLIA [id number] [place] [address] Differential cell count method Nom (Bld) Auto Normal [facility] Comment on above: Order Comment: Speci men Type: BLOOD SPECIMENOrdering Facility: [facility] Address: [address] [place] [address] Performed By: #### 5 7021-8 ####[facility] LABCLIA [id number] [place] [address] Eosinophils (Bld) [#/Vol] 0.21 10*3/uL Normal <0.46 [facility] Comment on above: Order Comment: Speci men Type: BLOOD SPECIMENOrdering Facility: [facility] Address: [address] [place] [address] Performed By: #### 5 7021-8 ####[facility] LABCLIA [id number] [place] [address] Eosinophils/100 WBC (Bld) 3.1 % Normal [facility] Comment on above: Order Comment: Speci men Type: BLOOD SPECIMENOrdering Facility: [facility] Address: [address] [place] [address] Performed By: #### 5 7021-8 ####[facility] LABCLIA [id number] [place] [address] Erythrocyte distribution width (RBC) [Ratio] 11.9 % Normal 11.5-15.0 [facility] Comment on above: Order Comment: Speci men Type: BLOOD SPECIMENOrdering Facility: [facility] Address: [address] [place] [address] Performed By: #### 5 7021-8 ####[facility] LABCLIA [id number] [place] [address] Hematocrit (Bld) [Volume fraction] 42.7 % Normal 36.0-46.0 [facility] Comment on above: Order Comment: Speci men Type: BLOOD SPECIMENOrdering Facility: [facility] Address: [address] [place] [address] Performed By: #### 5 7021-8 ####[facility] LABCLIA [id number] [place] [address] Hemoglobin (Bld) [Mass/Vol] 14.3 g/dL Normal 11.5-15.5 [facility] Comment on above: Order Comment: Speci men Type: BLOOD SPECIMENOrdering Facility: [facility] Address: [address] [place] [address] Performed By: #### 5 7021-8 ####[facility] LABCLIA [id number] [place] [address] Immature granulocytes (Bld) [#/Vol] 0.03 10*3/uL Normal <0.10 [facility] Comment on above: Order Comment: Speci men Type: BLOOD SPECIMENOrdering Facility: [facility] Address: [address] [place] [address] Performed By: #### 5 7021-8 ####[facility] LABCLIA [id number] [place] [address] Immature granulocytes/100 WBC (Bld) 0.4 % Normal [facility] Comment on above: Order Comment: Speci men Type: BLOOD SPECIMENOrdering Facility: [facility] Address: [address] [place] [address] Performed By: #### 5 7021-8 ####[facility] LABCLIA [id number] [place] [address] Lymphocytes (Bld) [#/Vol] 1.60 10*3/uL Normal 1.00-4.00 [facility] Comment on above: Order Comment: Speci men Type: BLOOD SPECIMENOrdering Facility: [facility] Address: [address] [place] [address] Performed By: #### 5 7021-8 ####[facility] LABCLIA [id number] [place] [address] Lymphocytes/100 WBC (Bld) 23.7 % Normal [facility] Comment on above: Order Comment: Speci men Type: BLOOD SPECIMENOrdering Facility: [facility] Address: [address] [place] [address] Performed By: #### 5 7021-8 ####[facility] LABCLIA [id number] [place] [address] MCH (RBC) [Entitic mass] 28.6 pg Normal 26.0-34.0 [facility] Comment on above: Order Comment: Speci men Type: BLOOD SPECIMENOrdering Facility: [facility] Address: [address] [place] [address] Performed By: #### 5 7021-8 ####[facility] LABCLIA [id number] [place] [address] MCHC (RBC) [Mass/Vol] 33.5 g/dL Normal 30.5-36.0 [facility] Comment on above: Order Comment: Speci men Type: BLOOD SPECIMENOrdering Facility: [facility] Address: [address] [place] [address] Performed By: #### 5 7021-8 ####[facility] LABCLIA [id number] [place] [address] MCV (RBC) [Entitic vol] 85.4 fL Normal 80.0-100.0 [facility] Comment on above: Order Comment: Speci men Type: BLOOD SPECIMENOrdering Facility: [facility] Address: [address] [place] [address] Performed By: #### 5 7021-8 ####[facility] LABCLIA [id number] [place] [address] Monocytes (Bld) [#/Vol] 0.31 10*3/uL Normal <0.87 [facility] Comment on above: Order Comment: Speci men Type: BLOOD SPECIMENOrdering Facility: [facility] Address: [address] [place] [address] Performed By: #### 5 7021-8 ####[facility] LABCLIA [id number] [place] [address] Monocytes/100 WBC (Bld) 4.6 % Normal [facility] [facility] Comment on above: Order Comment: Speci men Type: BLOOD SPECIMENOrdering Facility: [facility] Address: [address] [place] [address] Performed By: #### 5 7021-8 ####[facility] LABCLIA [id number] [place] [address] Neutrophils (Bld) [#/Vol] 4.57 10*3/uL Normal 1.45-7.50 [facility] Comment on above: Order Comment: Speci men Type: BLOOD SPECIMENOrdering Facility: [facility] Address: [address] [place] [address] Performed By: #### 5 7021-8 ####[facility] LABCLIA [id number] [place] [address] Neutrophils/100 WBC (Bld) 67.6 % Normal [facility] Comment on above: Order Comment: Speci men Type: BLOOD SPECIMENOrdering Facility: [facility] Address: [address] [place] [address] Performed By: #### 5 7021-8 ####[facility] LABCLIA [id number] [place] [address] Nucleated RBC (Bld) [#/Vol] 10*3/uL Normal <0.01 [facility] Comment on above: Order Comment: Speci men Type: BLOOD SPECIMENOrdering Facility: [facility] Address: [address] [place] [address] Performed By: #### 5 7021-8 ####[facility] LABCLIA [id number] [place] [address] Nucleated RBC/100 WBC (Bld) [Ratio] 0.0 /100 WBC Normal [facility] Comment on above: Order Comment: Speci men Type: BLOOD SPECIMENOrdering Facility: [facility] Address: [address] [address] Performed By: #### 5 7021-8 ####[facility] LABCLIA [id number] [place] [address] Platelet mean volume (Bld) [Entitic vol] 9.5 fL Normal 9.0-12.7 [facility] Comment on above: Order Comment: Speci men Type: BLOOD SPECIMENOrdering Facility: [facility] Address: [address] [place] [address] Performed By: #### 5 7021-8 ####[facility] LABCLIA [id number] [place] [address] Platelets (Bld) [#/Vol] 248 10*3/uL Normal 150-400 [facility] Comment on above: Order Comment: Speci men Type: BLOOD SPECIMENOrdering Facility: [facility] Address: [address] [place] [address] Performed By: #### 5 7021-8 ####[facility] LABCLIA [id number] [place] [address] RBC (Bld) [#/Vol] 5.00 10*6/uL Normal 3.90-5.20 [facility] Comment on above: Order Comment: Speci men Type: BLOOD SPECIMENOrdering Facility: [facility] Address: [address] [address] Performed By: #### 5 7021-8 ####[facility] LABCLIA [id number] [place] [address] WBC (Bld) [#/Vol] 6.76 10*3/uL Normal 3.70-11.00 [facility] Comment on above: Order Comment: Speci men Type: BLOOD SPECIMENOrdering Facility: [facility] Address: [address] [place] [address] Performed By: #### 5 7021-8 ####[facility] LABCLIA [id number] [place] [address] CNOVSPon 10-02-2022 CNOVSP Visit (SP) Office (H EMASA) LEANA TRAN Dominick ([id number]) 1985 F Date Time Provider Department 10/02/22 [...] 2022: Telephone (more content not included)... Normal [facility] Comprehensive metabolic 2000 panelon 10-02-2022 Albumin [Mass/Vol] 4.5 g/dL Normal 3.9-4.9 [facility] Comment on above: Order Comment: Speci dhara Type: BLOOD SPECIMENOrdering Facility: [facility] Address: [address] [place] [address] Performed By: #### 2 4323-8 ####[facility] LABCLIA [id number] [place] [address] ALP [Catalytic activity/Vol] 80 U/L Normal 34-123 [facility] Comment on above: Order Comment: Speci dhara Type: BLOOD SPECIMENOrdering Facility: [facility] Address: [address] [place] [address] Performed By: #### 2 4323-8 ####[facility] LABCLIA [id number] [place] [address] ALT [Catalytic activity/Vol] 20 U/L Normal 7-38 [facility] Comment on above: Order Comment: Speci men Type: BLOOD SPECIMENOrdering Facility: [facility] Address: [address] [place] [address] Performed By: #### 2 4323-8 ####[facility] LABIA [id number] [place] [address] Anion gap [Moles/Vol] 14 mmol/L Normal 9-18 [facility] Comment on above: Order Comment: Speci men Type: BLOOD SPECIMENOrdering Facility: [facility] Address: [address] [address] Performed By: #### 2 4323-8 ####[facility] LABCLIA [id number] [place] [address] AST [Catalytic activity/Vol] 13 U/L Normal 13-35 [facility] Comment on above: Order Comment: Speci men Type: BLOOD SPECIMENOrdering Facility: [facility] Address: [address] [address] Performed By: #### 2 4323-8 ####[facility] LABCLIA [id number] [place] [address] Bilirubin [Mass/Vol] 0.4 mg/dL Normal 0.2-1.3 [facility] Comment on above: Order Comment: Speci men Type: BLOOD SPECIMENOrdering Facility: [facility] Address: [address] [place] [address] Performed By: #### 2 4323-8 ####[facility] LABCLIA [id number] [place] [address] Calcium [Mass/Vol] 9.5 mg/dL Normal 8.5-10.2 [facility] Comment on above: Order Comment: Speci men Type: BLOOD SPECIMENOrdering Facility: [facility] Address: [address] [place] [address] Performed By: #### 2 4323-8 ####[facility] LABCLIA [id number] [place] [address] Chloride [Moles/Vol] 106 mmol/L High 97-105 [facility] Comment on above: Order Comment: Speci men Type: BLOOD SPECIMENOrdering Facility: [facility] Address: [address] [place] [address] Performed By: #### 2 4323-8 ####[facility] LABCLIA [id number] [place] [address] CO2 [Moles/Vol] 21 mmol/L Low 22-30 [facility] Comment on above: Order Comment: Speci men Type: BLOOD SPECIMENOrdering Facility: [facility] Address: [address] [address] Performed By: #### 2 4323-8 ####[facility] LABCLIA [id number] [place] [address] Creatinine [Mass/Vol] 1.05 mg/dL High 0.58-0.96 [facility] Comment on above: Order Comment: Speci men Type: BLOOD SPECIMENOrdering Facility: [facility] Address: [address] [address] Performed By: #### 2 4323-8 ####[facility] LABCLIA [id number] [place] [address] Creatinine and Glomerular filtration rate.predicted panel (S/P/Bld) 70 mL/min/1.73m??? Normal >=60 [facility] Comment on above: Order Comment: Speci men Type: BLOOD SPECIMENOrdering Facility: [facility] Address: [address] [place] [address] Result Comment: Maricarmen mated Glomerular Filtration Rate [...] actual GFR. Performed By: #### 2 4323-8 ####[facility] LABCLIA [id number] [place] [address] Glucose [Mass/Vol] 113 mg/dL High 74-99 [facility] Comment on above: Order Comment: Speci men Type: BLOOD SPECIMENOrdering Facility: [facility] Address: [address] [place] [address] Result Comment: The [place] Diabetes Association (ADA) provides guidance for cutoff [...] Standards of Medical Care in Diabetes 2016, [place] Diabetes Association. Diabetes Care. 2016.39(Suppl 1). Performed By: #### 2 4323-8 ####[facility] LABCLIA [id number] [place] [address] Potassium [Moles/Vol] 3.7 mmol/L Normal 3.7-5.1 [facility] Comment on above: Order Comment: Speci men Type: BLOOD SPECIMENOrdering Facility: [facility] Address: [address] [place] [address] Performed By: #### 2 4323-8 ####[facility] LABCLIA [id number] [place] [address] Protein [Mass/Vol] 6.8 g/dL Normal 6.3-8.0 [facility] Comment on above: Order Comment: Speci men Type: BLOOD SPECIMENOrdering Facility: [facility] Address: [address] [place] [address] Performed By: #### 2 4323-8 ####[facility] LABCLIA [id number] [place] [address] Sodium [Moles/Vol] 141 mmol/L Normal 136-144 [facility] Comment on above: Order Comment: Speci men Type: BLOOD SPECIMENOrdering Facility: [facility] Address: [address] [address] Performed By: #### 2 4323-8 ####[facility] LABCLIA [id number] [place] [address] Urea nitrogen [Mass/Vol] 15 mg/dL Normal 7-21 [facility] Comment on above: Order Comment: Speci men Type: BLOOD SPECIMENOrdering Facility: [facility] Address: [place] [address] Performed By: #### 2 4323-8 ####[facility] LABCLIA [id number] [place] [address] RAD - Ultrasound Reporton RAD - Ultrasound Report [id number]:127 Normal [facility] Ambulatory Visit Summaryon 0 09-05-2022 Ambulatory Visit Summary LEANA TRAN :1985 Visit Date:09/05/2022 Ambulatory Visit Instructions Your Diagnosis Gross hematuria Kidney stone Angiomyolipoma Urethral stricture Tests Performed Urnls Dip Stick Auto w/o Microscopy POC 83092 Your Care Team Attending Physician - TEJ HEREDIA, LORAINE Razo Primary Care Physician - CAS DOWELL MD [...] LORAINE RUBALCAVA PA-C Where: [facility] Jim Normal [facility] Patient Educationon 09-06-19 Patient Education Urology Kidney Stones Kidney stones [...] these instructions at home: Medicines ? Take keam-ggh-rfsrbtf and prescription medicines only as told by [...] provider. Document Revised: 09/26/2021 Document Reviewed: 09/26/2021 [employer]inder Patient Education ? 2022 [employer] [facility] Reminderson 09-05-2022 Reminders - From: Heather Blevins To: CARLA Rubalcava; Sent: 09/05/2022 09:08:48 EDT Show up: 07/07/2023 09:08:00 EDT Subject: GORDON Due Date/Time: 08/06/2023 09:08:00 EDT Reminder Message patient needs GORDON prior to 1 year appointment, ordered as outside. patient wishes to have it done at [facility] Office/Clinic Noteon 09-05-2022 Urology Office/Clinic Note Chief Complaint 8 month follow up with [facility] HPI Staff 6m [facility]UST. She states she past a kidney stone, she has a picture in her phone of one she past. DX: Urethral Stricture, Gross Hematuria, Stress Incontinence & Abnormal Urine Sediment *No Urology Medications [facility] 09/02/22 @ [facility] Pt was given hat [...] E&M of Est. Patient Moderate 30-39 Min 42231 Influenza immunization status assessed 1030F Most recent [...] E&M of Est. Patient Moderate 30-39 Min 68982 US Renal 3. Gross hematuria (R31.0: Gross hematuria) Neg cytology 12/21/21 Cysto 01/23/22 neg for b.t. UA today neg. no gross heme since last visit. See #3 Ordered: Body Mass Index (BMI) documented 3008F Current tobacco non-user 1036F Depression Screening Negative 3352F E&M of Est. Patient Moderate 30-39 Min 54794 Influenza immunization status assessed 1030F Most recent diastolic blood pressure <80 mm Hg 3078F Systolic BP 130-139 mm Hg (Most Recent) 3075F Urnls Dip Stick Auto w/o Microscopy POC 96607 4. Urethral stricture (N35.919: Unspecified urethral stricture, male, unspecified site) S/p cysto/UD 01/23/[address] Green monitor sxs, possible need for repeat UD in the future no longer having to do emptying maneuvers Ordered: E&M of Est. Patient Moderate 30-39 Min 50389 Orders: tamsulosin, See Instructions, take 1-2 tabs po daily when you feel like you are passing a stone, # 30 tab(s), Refills(s) 1, Pharmacy: [facility]/pharmacy #[id number], 162, cm, 09/05/22 8:28:00 EDT, Height/Length Dosing, 99, kg, 09/05/22 8:28:00 EDT, Weight Dosing Follow-up With When Contact Information TEJ HEREDIA, LORAINE Razo, URL [address] [place] [place] [address] Additional Instructions: 1 yr w/ GORDON Patient Education Kidney Stones, Hopq-av-Gdtp Documentation recorded by the ricarda Blevins accurately reflects the services(s) I performed and decisions made by me. Authenticated by Loraine Rubalcava PA-C on 09/05/2022 09:22:11. IHeather, personally scribed for Loraine Rubalcava PA-C on [...] Daily Januv (more content not included)... Normal [facility] Comment on above: Result Comment: Elec tronically Signed By: LORAINE RUBALCAVA PA-C\.br\Date and Time Signed: 09/05/22 09:22 EDT\.br\Electronically Co-Signed By: Heather Blevins\.br\Date and Time Co-Signed: 09/05/22 09:07 EDT Office Visiton 07-21-2022 Follow-up visit [id number] Megan Tran 1985 F Date Provider Department Center 07/21/2022 MACRINA FISCHER Dario CARD [facility] Family History Problem Relation [...] Alive Son Alive Son Alive Level of Service:75259 [place] OFFICE/OUTPATIENT ESTABLISHED LOW MDM 20-29 MIN Reason for Visit and Comments: Follow-up [510238] Normal [facility] Office Visiton 07-04-2022 Follow-up visit [id number] Megan Tran 1985 F Date Provider Department Center 07/04/2022 [facility] Problem Relation Age of [...] Alive Son Alive Son Alive Level of Service:75152 [place] POSTOP FOLLOW UP VISIT RELATED TO ORIGINAL PX Normal [facility] HPon 06-27-2022 HP History Of Present I julia Tran is a 36 y.o. female presenting [...] (lavandula angustifolia); Macrolide antibiotics; Sulfa (sulfonamide antibiotics); Sulfamethoxazole-trimethopr im; Valacyclovir; Fish containing products; Ibuprofen; Shellfish derived; [...] and collapse ILR placement Stephon Cronin MD [facility] NURSNOTEon 06-27-2022 NURSNOTE RN educated pt on d/ c instructions. RN encouraged pt to voice any questions or concerns. Pt verbalizes no questions or concerns at this time. Pt was wheeled off of unit with all of belongings. Normal [facility] CELIAC ANTIBODIES PROFILEon 06-16-2022 Deamidated Gliadin Abs, IgA 26 units Critically high 0-19 [facility] Comment on above: Result Comment: Nega tive 0 - 19 Weak Positive 20 - 30 Moderate to Strong Positive >30 Performed By: #### C BC #### [facility] [address] [address] [address] Nilton Mccall Deamidated Gliadin Abs, IgG 5 units Normal 0-19 [facility] Comment on above: Result Comment: Nega tive 0 - 19 Weak Positive 20 - 30 Moderate to Strong Positive >30 Performed By: #### C BC #### [facility] [address] [address] [address] Nilton Mccall Endomysial Antibody IgA Negative Normal Negative [facility] Comment on above: Performed By: #### C BC #### [facility] [address] [address] [address] Nilton Mccall Immunoglobulin A, Qn, Serum 205 mg/dL Normal 87-352 [facility] Comment on above: Performed By: #### C BC #### [facility] [address] [address] [address] Nilton Mccall t-Transglutaminase (tTG) IgA <2 Normal 0-3 [facility] Comment on above: Result Comment: Nega tive 0 - 3 Weak Positive 4 - 10 Positive >10 . Tissue Transglutaminase (tTG) has been identified as the endomysial antigen. Studies have demonstr- ated that endomysial IgA antibodies have over 99% specificity for gluten sensitive enteropathy. Performed By: #### C BC #### [facility] [address] [address] [address] Nilton Mccall t-Transglutaminase (tTG) IgG 3 U/mL Normal 0-5 [facility] Comment on above: Result Comment: Nega tive 0 - 5 Weak Positive 6 - 9 Positive >9 Performed By: #### C BC #### [facility] [address] [address] [address] Nilton Mccall CBC AUTO DIFFon 06-15-2022 BASO # 0.0 103/ul Normal 0.0-0.1 [facility] Comment on above: Performed By: #### C BC #### [facility] [address] [address] [address] Nilton Mccall Basophils/100 WBC (Bld) 0.5 % Normal 0.2-2.0 [facility] Comment on above: Performed By: #### C BC #### [facility] [address] [place] [address] Dr. Nilton Mccall EO # 0.2 103/ul Normal 0.0-0.7 [facility] Comment on above: Performed By: #### C BC #### [facility] [address] [place] [address] Dr. Nilton Mccall Eosinophils/100 WBC (Bld) 2.8 % Normal 0.9-7.0 [facility] Comment on above: Performed By: #### C BC #### [facility] [address] [place] [address] Dr. Nilton Mccall Erythrocyte distribution width (RBC) [Ratio] 11.8 % Normal 11.0-15.0 [facility] Comment on above: Performed By: #### C BC #### [facility] [address] [place] [address] Dr. Nilton Mccall Hematocrit (Bld) [Volume fraction] 41.8 % Normal 36.0-48.0 [facility] Comment on above: Performed By: #### C BC #### [facility] [address] [place] [address] Dr. Nilton Mccall Hemoglobin (Bld) [Mass/Vol] 14.2 g/dL Normal 12.0-16.0 [facility] Comment on above: Performed By: #### C BC #### [facility] [address] [place] [address] Dr. Nilton Mccall IG # 0.03 10e3/ul Normal 0.00-0.03 [facility] Comment on above: Performed By: #### C BC #### [facility] [address] [place] [address] Dr. Nilton Mccall IG % 0.4 % Normal 0.0-0.5 [facility] Comment on above: Performed By: #### C BC #### [facility] [address] [place] [address] Dr. Nilton Mccall LYMPH # 2.3 103/ul Normal 1.2-3.8 [facility] Comment on above: Performed By: #### C BC #### [facility] [address] [place] [address] Dr. Nilton Mccall Lymphocytes/100 WBC (Bld) 28.8 % Normal 20.5-60.0 [facility] Comment on above: Performed By: #### C BC #### [facility] [address] [place] [address] Dr. Nilton Mccall MANUAL DIFF REQ NO Normal [facility] Comment on above: Performed By: #### C BC #### [facility] [address] [place] [address] Dr. Nilton Mccall MCH (RBC) [Entitic mass] 29.4 pg Normal 26.7-34.0 [facility] Comment on above: Performed By: #### C BC #### [facility] [address] [place] [address] Dr. Nilton Mccall MCHC (RBC) [Mass/Vol] 34.0 g/dL Normal 29.9-35.2 [facility] Comment on above: Performed By: #### C BC #### [facility] [address] [place] [address] Dr. Nilton Mccall MCV (RBC) [Entitic vol] 86.5 fL Normal 81.0-99.0 [facility] Comment on above: Performed By: #### C BC #### [facility] [address] [place] [address] Dr. Nilton Mccall MONO # 0.4 103/ul Normal 0.3-0.8 [facility] Comment on above: Performed By: #### C BC #### [facility] [address] [place] [address] Dr. Nilton Mccall Monocytes/100 WBC (Bld) 4.5 % Normal 1.7-12.0 [facility] Comment on above: Performed By: #### C BC #### [facility] [address] [place] [address] Dr. Nilton Mccall NEUT # 5.0 103/ul Normal 1.4-6.5 [facility] Comment on above: Performed By: #### C BC #### [facility] [address] [place] [address] Dr. Nilton Mccall Neutrophils/100 WBC (Bld) 63.0 % Normal 43.0-75.0 [facility] Comment on above: Performed By: #### C BC #### [facility] [address] [place] [address] Dr. Nilton Mccall Platelet mean volume (Bld) [Entitic vol] 9.5 fL Normal 9.5-13.5 [facility] Comment on above: Performed By: #### C BC #### [facility] [address] [place] [address] Dr. Nilton Mccall PLT 279 103/ul Normal 150-450 [facility] Comment on above: Performed By: #### C BC #### [facility] [address] [place] [address] Dr. Nilton Mccall RBC 4.83 106/ul Normal 4.20-5.40 [facility] Comment on above: Performed By: #### C BC #### [facility] [address] [place] [address] Dr. Nilton Mccall WBC 7.9 103/ul Normal 4.0-11.0 [facility] Comment on above: Performed By: #### C BC #### [facility] [address] [place] [address] Dr. Nilton Mccall GLYCOHEMOGLOBIN A1Con 2022 ADA RECOMMENDATION SEE BELOW Normal [facility] Comment on above: Result Comment: ADA RECOMMENDED LIMIT 4.0 - 6.0 ADA THERAPEUTIC TARGET < 7.0 ACTION SUGGESTED > 7.0 Performed By: #### C MP #### [facility] [address] [place] [address] Dr. Nilton Mccall Glucose [Mass/Vol] 117 mg/dL Normal [facility] Comment on above: Performed By: #### C MP #### [facility] [address] [place] [address] Dr. Nilton Mccall HbA1c (Bld) [Mass fraction] 5.7 % Normal 4.5-6.2 [facility] Comment on above: Performed By: #### C MP #### [facility] [address] [place] [address] Dr. Nilton Mccall VIT B12 AND FOLATEon 023 Cobalamin (Vitamin B12) [Mass/Vol] 539.0 pg/mL Normal 193.0-986. 0 [facility] Comment on above: Performed By: #### C BC #### [facility] [address] [place] [address] Dr. Nilton Mccall FOLATE 16.40 ng/mL Normal 8.60-58.90 [facility] Comment on above: Performed By: #### C BC #### [facility] [address] [place] [address] Dr. Nilton Mccall VITAMIN D 25 OHon 06-15-2022 VIT D 25-OH 41.2 ng/mL Normal [facility] Comment on above: Performed By: #### C BC #### [facility] [address] [place] [address] Dr. Nilton Mccall VIT D RANGES SEE BELOW Normal [facility] Comment on above: Result Comment: <20 ng/mL Vit D deficient 20 - <30 ng/mL Vit D insufficient 30 - 100 ng/mL Vit D sufficient >100 ng/mL Potential Toxicity Performed By: #### C BC #### [facility] [address] [place] [address] Dr. Nilton Mccall FREE T3on 06-05-2022 FREE T3 2.39 pg/mlL Normal 2.18-3.98 [facility] Comment on above: Performed By: #### T SH, FT3 #### [facility] [address] [address] [address] Nilton Mccall FREE T4on 06-05-2022 Free T4 [Mass/Vol] 0.89 ng/dL Normal 0.76-1.46 [facility] Comment on above: Performed By: #### C MP #### [facility] [address] [address] [address] Nilton Mccall TSHon 06-05-2022 TSH 1.431 uIU/mL Normal 0.358-3.74 0 [facility] Comment on above: Performed By: #### T SH, FT3 #### [facility] [address] [address] [address] Nilton Mccall Consulton 05-24-2022 Consult [id number] Megan Tran 1985 Provider Department Center 05/24/2022 MACRINA FISCHER [facility] Family History Problem Relation Age of [...] Alive Son Alive Son Alive Level of Service:79196 [place] OFFICE/OUTPATIENT [facility] 60-74 MINUTES Reason for Visit and Comments: Dysautonomia [Other] Normal [facility] Letter (Out)on 05-24-2022 Letter (Out) [id number] Megan Tran 1985 Provider Department Center 05/24/2022 None-None [facility] Family History Problem Relation Age [...] Son Alive Son Alive Son Alive Normal [facility] CNPNon 05-03-2022 CNPN Telephone ([facility]) LEANA TRAN ([id number]) 1985 F Date Time Provider Department 05/03/22 MEENA GRISSOM [facility] During your visit today, we recorded the [...] food reac (more content not included)... Normal [facility] Ferritin SerPl-mCncon 2022 Ferritin [Mass/Vol] 95.0 ng/mL Normal 14.7-205.1 [facility] Comment on above: Order Comment: Speci men Type: BLOOD SPECIMENOrdering Facility: [facility] Address: [address] [place], [place] [id number] Performed By: #### 2 276-4, 91945-1, 4-6 ####[facility] LABCLIA [id number] [place] [address] [place] Iron and Iron binding capaci ty panelon 04-27-2022 Iron [Mass/Vol] 91 ug/dL Normal 41-186 [facility] Comment on above: Order Comment: Speci men Type: BLOOD SPECIMENOrdering Facility: [facility] Address: [address] [place], [place] [id number] Performed By: #### 2 276-4, 32315-5, 6 ####[facility] LABCLIA [id number] [place] [address] [place] Iron binding capacity [Mass/Vol] 310 ug/dL Normal 232-386 [facility] Comment on above: Order Comment: Speci men Type: BLOOD SPECIMENOrdering Facility: [facility] Address: [address] [place], [place] [id number] Performed By: #### 2 276-4, 13350-7, 6 ####[facility] LABIA [id number] [place] [address] [place] Iron/TIBC [Molar ratio] 29.4 % Normal 15.0-57.0 [facility] Comment on above: Order Comment: Speci men Type: BLOOD SPECIMENOrdering Facility: [facility] Address: [address] [place], [place] [phone] Performed By: #### 2 276-4, 13088-9, 3033-6 ####[facility] LABCLIA [id number] [place] [id number] [place] Transferrin SerPl-mCncon Transferrin [Mass/Vol] 263 mg/dL Normal 200-360 [facility] Comment on above: Order Comment: Speci men Type: BLOOD SPECIMENOrdering Facility: [facility] Address: [place] [id number] Performed By: #### 2 276-4, 94780-3, 3034-6 ####[facility] LABCLIA [id number] [id number] CNOVSPon 04-03-2022 CNOVSP Visit (SP) Office (H [facility]) LEANA TRAN ([id number]) 1985 F Date Time Provider Department 04/03/22 [...] TSH 0.0 (more content not included)... Normal [facility] CNPNon 04-03-2022 CNPN Telephone (NEUR) LEANA TRAN ([id number]) 1985 F Date Time Provider Department 04/03/22 MEENA GRISSOM During your visit today, we [...] reaction [T50.9 (more content not included)... Normal [facility] PLATELET TRANSMISSION ELECTR ON MICROSCOPIC STUDYon 03-29-2022 PLATELET TEM Performed Normal [facility] Comment on above: Order Comment: Dulce Maria jules Type: BLOOD SPECIMEN [facility] Address: [address] [place] [address] Performed By: #### P LTEMS #### [facility] CLIA [id number] [address] [place] [address] PTEM INTERPRETATION SEE NOTE Normal [facility] Comment on above: Order Comment: Dulce Maria jules Type: BLOOD SPECIMEN [facility] Address: [address] [place] [address] Result Comment: IMPR ESSION: Platelet transmission electron [...] developed and its performance characteristics determined by [facility] in a manner consistent with CLIA requirements. This test has not been cleared or approved by the U.S. Food and Drug Administration. Test Performed by: [facility] - [facility] [address] [place] [address] Java Analyst: Shree Norwood M.D. Ph.D.; CLIA# [id number] Performed By: #### P LTEMS #### [facility] CLIA [id number] [address] [place] [address] Feroz 03-21-2022 CNPN Telephone ([facility]) LEANA TRAN ([id number]) 1985 F Date Time Provider Department 03/21/22 YANCY COOK During your visit today, we recorded the following information about you: Yancy Cook RN 03/21/2022 10:45 AM Signed Received call from pt stating she was not able to get her PLT lab test done in [place] d/t them no longer doing them on or fridays so she needs to move out her appt with Dr Salas so she has time to try again to get lab done. Pt transferred to first front ventilator to reschedule f/u appt. Yancy Cook RN Allergies As of Date: 03/21/2022 Noted [...] 06/14/2021 Prim (more content not included)... Normal [facility] Specimen Rejectionon 023 Reason for rejection Unable to perform t esting: Specimen age beyond stability limit. Normal [facility] Comment on above: Performed By: #### M G, BMPX, CDP #### Lab [address] [place] [address] Java Analyst: Belén Dale MD Source of sample .BLOOD Normal [facility] Comment on above: Performed By: #### M G, BMPX, CDP #### Lab [address] [place] [address] Java Analyst: Belén Dale MD Test ordered PLTEM Normal [facility] Comment on above: Performed By: #### M G, BMPX, CDP #### Lab [address] [place] [address] Java Analyst: Belén Dale MD Ambulatory Visit Summaryon 0 [...] LORAINE RUBALCAVA PA-C Where: [facility] Patient Educationon 02-28-19 23 Patient Education Urology Urethral Stricture Urethral stricture [...] Follow these instructions at home: ? Take hukl-wrn-dgixsem and prescription medicines only as told by [...] 02/18/2016 Document Revised: 09/04/2018 Document Reviewed: 09/04/2018 [employer] Patient Education ? 2019 [employer]. Normal [facility] Urology Office/Clinic Noteon 02-28-2022 Urology Office/Clinic [...] procedure., # 2 tab(s), Refills(s) 0, Pharmacy: [facility]/pharmacy #[id number], 162, cm, 12/21/21 8:50:00 EST, Height/Length Dosing, 99, kg, 12/21/21 8:50:00 EST, Weight Dosing Total time spent reviewing previous notes/results/external documents, preparing the chart, conducting the encounter with the patient and family, ordering tests/medications, and documenting the encounter was 30 minutes. Follow-up With When Contact Information TEJ HEREDIA, LORAINE Razo, URL [address] [address] Additional Instructions: f/u 6 mos with [facility] Patient Education Urethral Stricture Documentation recorded by the scribdung Ch[place] accurately reflects the services(s) I performed and decisions made by me. Authenticated by Loraine Rubalcava PA-C on 02/28/2022 12:51:43. I, Jaclyn Chino, personally scribed for [employer] on 02/28/2022 09:03:19. . Proble (more content not included)... Normal [facility] Comment on above: Result Comment: Elec tronically Signed By: LORAINE RUBALCAVA PA-C\.br\Date and Time Signed: 02/28/22 12:54 EST\.br\Electronically Co-Signed By: Jaclyn Chino\.br\Date and Time Co-Signed: 02/28/22 09:03 EST CNPNon 02-24-2022 CNPN Telephone (NHMNS2) LEANA TRAN ([id number]) 1985 F Date Time Provider Department 02/24/22 BHARGAVI SALDANA [facility] During your visit today, we recorded the following information about you: Vikash Oreilly RN 02/24/2022 3:16 PM Signed PA submitted via [employer]. Kurt TRAN ([place]: [id number]) Your information has been submitted to [facility]. To check for an updated outcome later, reopen this PA request from your dashboard. If [facility] has not responded to your request within 24 hours, contact [facility] at . If you think there [...] Arachnoid c (more content not included)... Normal [facility] CNPNon 02-17-2022 CNPN Telephone ([facility]) LEANA TRAN ([id number]) 1985 F Date Time Provider Department 02/17/22 YANCY COOK During your visit today, we recorded the following information about you: Yancy Cook RN 02/17/2022 4:35 PM Signed Received call from Melodie at [facility] in [place] stating pt had her platelet transmission lab done there but it is a lab test that they send out to other labs and they wanted to know if Dr Salas has a preference on what lab they send it to d/t different labs running the test different ways. ZACH: Please advise. CYNTHIA Liang MD 02/17/2022 5:23 PM Signed [facility] would be good. Yancy Cook RN 02/20/2022 8:45 AM Signed Informed Lindsey of Dr Salas's response. Lindsey states that [facility] will only except if pt was drawn on and pt was drawn on Sunday so they are sending it out today to [facility], unless Dr Salas would like pt to come back in for a redraw so it can be sent to [facility]. CYNTHIA Liang MD 02/20/2022 8:50 AM Signed [...] Assessed Reason for Visit: Orders [681] Question [2217] Prescriptions as of 02/20/2022 - DULoxetine (CYMBALTA) [...] once daily (more content not included)... Normal [facility] ELECTRON MICROSCOPYon 2022 LAB AP CASE REPORT Normal [facility] Comment on above: Result Comment: Elec radha Microscopy Case: [id number] Authorizing Provider: Unknown Unknown Collected: 02/17/2022 0000 Ordering Location: [facility] Lab Received: 02/21/2022 0655 Pathologist: Shree Aldana, PhD Cosigner: Ashley Marshall MD Specimen: Blood, Venous Performed By: #### E LECTRON MICROSCOPY ####[facility] LAB (BEAKER)[address] [place] [address] LAB AP DIAGNOSIS COMMENT No charge has been applied to this sample. [facility] Comment on above: Performed By: #### E LECTRON MICROSCOPY ####[facility] LAB (BEAKER)[address] [place] [address] LAB AP REPORT FINAL DIAGNOSIS NARRATIVE [facility] Comment on above: Result Comment: Samp le was drawn on 02.17.22 and received on 02.21.22. This is too old for assessment. Performed By: #### E LECTRON MICROSCOPY ####[facility] LAB (BEAKER)[address] [place] [address] T4, Freeon 02-17-2022 Thyroxine, Free 1.34 ng/dL 0.93 - 1.70 ng/dL [facility] TSH w/reflex to FT4on 2022 Thyroid Stim. Horm. 0.08 uIU/mL Low 0.30-5.00 [facility] Comment on above: Performed By: #### T SHX #### Lab [address] [place] [address] Java Analyst: Belén Dale MD #### FT4 #### [facility] [address] [place], [place] [id number] Java Analyst: Emanuel Reaves MD TSH with Reflexon 02-17-2022 Interpretation and review of laboratory results Abnormal [facility] TSH Qn 0.08 m[IU]/L Low [facility] Thyroxine, Freeon 02-17-2022 Thyroxine, Free 1.34 ng/dL Normal 0.93-1.70 [facility] Comment on above: Performed By: #### T SHX #### Lab [address] [place] [address] Java Analyst: Belén Dale MD #### FT4 #### [facility] [address] [place], [place] [id number] Java Analyst: Emanuel Reaves MD [facility] 02-16-2022 CNPN Telephone ([facility]) LEANA TRAN ([id number]) 1985 F Date Time Provider Department 02/16/22 YANCY COOK During your visit today, we recorded the following information about you: Yancy Cook RN 02/16/2022 1:30 PM Signed Received call from pt stating Dr Salas told her to see wire brush maker but their office needs a referral. ZACH: Order pending, please review and sign. CYNTHIA Liang RN 02/17/2022 8:39 AM Signed PSS: Please set pt up with referral to her preferred wire brush maker. Thank you. CYNTHIA Liang 02/17/2022 8:55 AM Signed Pt would like referral sent to Stephon Cronin MD @ [facility]. Lauren, will you please fax records when order is signed? [employer] in your box, thanks! Loraine L [facility] 02/17/2022 9:45 AM Signed Records faxed to Dr. Cronin. Janine Hogan Pss 02/23/2022 1:[address] Cronin office spoke with Shanna. She states they have received this referral. Shanna wanted to let us know they do have a [address] Cronin. She states they can get patients in sooner with their PALLIATIVE NURSE, when they call patients to schedule they offer appointment with PALLIATIVE NURSE first. Patient has been scheduled with Macrina Wadsworth PALLIATIVE NURSE on 04/04 @ 11:00. Janine Edison Pss Allergies As of Date: 02/16/2022 Noted [...] [D69.9] Coagulopathy (HCC) [D68.9] Order(s):CONSULT TO CARDIOLOGY [9004] Order #: [id number]: 1 FUTURE Prescriptions as of 02/23/2022 - [...] 5,000 Unit (more content not included)... Normal [facility] CNOVSPon 02-10-2022 CNOVSP Visit (SP) Office (H EMASA) LEANA TRAN ([id number]) 1985 F Date Time Provider Department 02/10/22 [...] comes in (more content not included)... Normal [facility] Feroz 02-01-2022 [facility] Telephone ([facility]) LEANA TRAN ([id number]) 1985 F Date Time Provider Department 02/01/22 [facility] During your visit today, we recorded the [...] reaction [T50.905A] (more content not included)... Normal [facility] CBC with Diffon 01-30-2022 Abs. Basophil 0.04 k/uL Normal 0.00-0.20 [facility] Comment on above: Performed By: #### C P, CDP #### Lab [address] [place] [address] [place] [address] Java Analyst: Belén Dale MD Abs.Imm.Granulocyte 0.04 k/uL Normal 0.00-0.30 [facility] Comment on above: Performed By: #### C P, CDP #### Lab [address] [place] [address] Java Analyst: Belén Dale MD Abs.Neutrophil (Seg) 6.83 k/uL Normal 1.50-8.10 [facility] Comment on above: Performed By: #### C P, CDP #### [address] [place] [address] Java Analyst: Belén Dale MD Basophils/100 WBC (Bld) 0 % Normal 0-2 [facility] Comment on above: Performed By: #### C P, CDP #### [facility] [address] [place], [place] [address] Java Analyst: Belén Dale MD Eosinophils (Bld) [#/Vol] 0.19 10*3/uL Normal 0.00-0.44 [facility] Comment on above: Performed By: #### C P, CDP #### [address] [place], [place] [address] Java Analyst: Belén Dale MD Eosinophils/100 WBC (Bld) 2 % Normal 1-4 [facility] Comment on above: Performed By: #### C P, CDP #### [address] [place], [place] [address] Java Analyst: Belén Dale MD Erythrocyte distribution width (RBC) [Ratio] 11.6 % Low 11.8-14.4 [facility] Comment on above: Performed By: #### C P, CDP #### [address] [place], [place] [address] Java Analyst: Belén Dale MD Hematocrit (Bld) [Volume fraction] 46.1 % Normal 36.3-47.1 [facility] Comment on above: Performed By: #### C P, CDP #### [address] [place], [place] [address] Java Analyst: Belén Dale MD Hemoglobin (Bld) [Mass/Vol] 15.9 g/dL High 11.9-15.1 [facility] Comment on above: Performed By: #### C P, CDP #### [address] [place], [facility]83 Java Analyst: Belén Dale MD Immature granulocytes/100 WBC (Bld) 0 % Normal 0 [facility] Comment on above: Performed By: #### C P, CDP #### [address] [place], [facility]83 Java Analyst: Belén Dale MD Lymphocytes (Bld) [#/Vol] 1.67 10*3/uL Normal 1.10-3.70 [facility] Comment on above: Performed By: #### C P, CDP #### [address] [place], [facility]83 Java Analyst: Belén Dale MD Lymphocytes/100 WBC (Bld) 18 % Low 24-43 [facility] Comment on above: Performed By: #### C P, CDP #### [address] [place], [facility]83 Java Analyst: Belén Dale MD MCH (RBC) [Entitic mass] 29.8 pg Normal 25.2-33.5 [facility] Comment on above: Performed By: #### C P, CDP #### [address] [place], [facility]83 Java Analyst: Belén Dale MD MCHC (RBC) [Mass/Vol] 34.5 g/dL Normal 28.4-34.8 [facility] Comment on above: Performed By: #### C P, CDP #### [address] [place] [facility]83 Java Analyst: Belén Dale MD MCV (RBC) [Entitic vol] 86.3 fL Normal 82.6-102.9 [facility] Comment on above: Performed By: #### C P, CDP #### [address] [place] [address] Java Analyst: Belén Dale MD Monocytes (Bld) [#/Vol] 0.37 10*3/uL Normal 0.10-1.20 [facility] Comment on above: Performed By: #### C P, CDP #### [address] [place] [address] Java Analyst: Belén Dale MD Monocytes/100 WBC (Bld) 4 % Normal 3-12 [facility] Comment on above: Performed By: #### C P, CDP #### Lab [address] [place] [address] Java Analyst: Belén Dale MD Neutrophil (Seg) 76 % High 36-65 [facility] Comment on above: Performed By: #### C P, CDP #### Lab [address] [place] [address] Java Analyst: Belén Dale MD NRBC Automated 0.0 per 100 WBC Normal 0.0 [facility] Comment on above: Performed By: #### C P, CDP #### [address] [place] [address] Java Analyst: Belén Dale MD Platelet mean volume (Bld) [Entitic vol] 9.4 fL Normal 8.1-13.5 [facility] Comment on above: Performed By: #### C P, CDP #### [address] [place] [address] Java Analyst: Belén Dale MD Platelets (Bld) [#/Vol] 248 10*3/uL Normal 138-453 [facility] Comment on above: Performed By: #### C P, CDP #### Lab [address] [place] [address] Java Analyst: Belén Dale MD RBC (Bld) [#/Vol] 5.34 10*6/uL High 3.95-5.11 [facility] Comment on above: Performed By: #### C P, CDP #### [facility] [address] [place] [address] Java Analyst: Belén Dale MD WBC (Bld) [#/Vol] 9.1 10*3/uL Normal 3.5-11.3 [facility] Comment on above: Performed By: #### C P, CDP #### Lab [address] [place] [address] Java Analyst: Belén Dale MD CT ABDOMEN PELVIS WO [...] Tesfaye Tillman MD 01/30/22 Final result Normal [facility] Comp Metabolic Profon 2021 Albumin [Mass/Vol] 4.7 g/dL Normal 3.5-5.2 [facility] Comment on above: Performed By: #### YANIRA CamX, CDP #### Lab [address] [place] [address] [place] [address] Java Analyst: Belén Dale MD Albumin/Glob Ratio 1.5 Normal 1.0-2.5 [facility] Comment on above: Performed By: #### Ian Espinosa BMPX, CDP #### Lab [address] [place] [address] [place] [place], [place] [id number] Java Analyst: Belén Dale MD Alkaline Phos 76 U/L Normal 35-104 [facility] Comment on above: Performed By: #### M Francisca BMPX, CDP #### Lab [address] [place] [address] Java Analyst: Belén Dale MD ALT [Catalytic activity/Vol] 40 U/L High 5-33 [facility] Comment on above: Performed By: #### Ian Espinosa BMPX, CDP #### Lab [address] [place] [address] Java Analyst: Belén Dale MD Anion gap [Moles/Vol] 10 mmol/L Normal 9-17 [facility] Comment on above: Performed By: #### M Francisca, BMPX, CDP #### Lab [address] [place], [place] [id number] Java Analyst: Belén Dale MD AST [Catalytic activity/Vol] 17 U/L Normal <32 [facility] Comment on above: Performed By: #### M G, BMPX, CDP #### Lab [address] [place], [place] [address] Java Analyst: Belén Dale MD Bilirubin [Mass/Vol] 0.3 mg/dL Normal 0.3-1.2 [facility] Comment on above: Performed By: #### M Francisca, BMPX, CDP #### [address] [place], [place] [address] Java Analyst: Belén Dale MD BUN/CRE Ratio 10 Normal 9-20 [facility] Comment on above: Performed By: #### M Francisca BMPX, CDP #### [address] [place], [place] [address] Java Analyst: Belén Dale MD Calcium [Mass/Vol] 10.4 mg/dL Normal 8.6-10.4 [facility] Comment on above: Performed By: #### M Francisca BMPX, CDP #### Lab [address] [place], [place] [address] Java Analyst: Belén Dale MD Chloride [Moles/Vol] 105 mmol/L Normal 98-107 [facility] Comment on above: Performed By: #### M Francisca, BMPX, CDP #### Lab [address] [place], [place] [address] Java Analyst: Belén Dale MD CO2 [Moles/Vol] 25 mmol/L Normal 20-31 [facility] Comment on above: Performed By: #### M G, BMPX, CDP #### Lab [address] [place] [address] Java Analyst: Belén Dale MD Creatinine [Mass/Vol] 0.89 mg/dL Normal 0.50-0.90 [facility] Comment on above: Performed By: #### M Francisca BMPX, CDP #### Lab [address] [place] [address] Java Analyst: Belén Dale MD GFR/1.73 sq M.predicted among non-blacks MDRD (S/P/Bld) [Vol rate/Area] mL/min/{1.73_m2} Normal >60 [facility] Comment on above: Result Comment: Effective Nov [...] By: #### M CELESTINA Espinosa, CDP #### [address] [place] [address] Java Analyst: Belén Dale MD Glucose [Mass/Vol] 125 mg/dL High 70-99 [facility] Comment on above: Performed By: #### M Francisca BMPX, CDP #### Lab [address] [place] [address] [place] [address] Java Analyst: Belén Dale MD Potassium [Moles/Vol] 4.0 mmol/L Normal 3.7-5.3 [facility] Comment on above: Performed By: #### M Francisca BMPX, CDP #### [address] [place] [address] Java Analyst: Belén Dale MD Protein [Mass/Vol] 7.9 g/dL Normal 6.4-8.3 [facility] Comment on above: Performed By: #### M G, BMPX, CDP #### Lab [address] [place], [place] [address] Java Analyst: Belén Dale MD Sodium [Moles/Vol] 140 mmol/L Normal 135-144 [facility] Comment on above: Performed By: #### M G, BMPX, CDP #### Lab [address] [place], [place] [address] Java Analyst: Belén Dale MD Urea nitrogen [Mass/Vol] 9 mg/dL Normal 6-20 [facility] Comment on above: Performed By: #### M G, BMPX, CDP #### [facility] [address] [place], [place] 450[address] Java Analyst: Belén Dale MD UA w/Reflex Cultureon 2021 Bilirubin, SemiQt,Ur Negative Normal NEG [facility] Comment on above: Performed By: #### M G, BMPX, CDP #### Lab [address] [place] [address] [place] [address] Java Analyst: Belén Dale MD Blood, Urine Negative Normal NEG [facility] Comment on above: Performed By: #### M G, BMPX, CDP #### Lab [address] [place], [place] [id number] Java Analyst: Belén Dale MD Clarity (U) Clear Normal CLEAR [facility] Comment on above: Performed By: #### M G, BMPX, CDP #### Lab [address] [place] [address] Java Analyst: Belén Dale MD Color (U) Yellow Normal YEL [facility] Comment on above: Performed By: #### M G, BMPX, CDP #### Lab [address] [place] [address] Java Analyst: Belén Dale MD Glucose Ql (U) Negative Normal NEG [facility] Comment on above: Performed By: #### M G, BMPX, CDP #### Lab [address] [place] [address] [place] [place], [place] [id number] Java Analyst: Belén Dale MD Ketones Ql (U) Negative Normal NEG [facility] Comment on above: Performed By: #### M G, BMPX, CDP #### Lab [address] [place] [address] [place], [place] [address] Java Analyst: Belén Dale MD Leukocyte esterase Test strip Ql (U) Negative Normal NEG [facility] Comment on above: Performed By: #### M G, BMPX, CDP #### [address] [place], [place] [id number] Java Analyst: Belén Dale MD Nitrite,Ur Negative Normal NEG [facility] Comment on above: Performed By: #### M G, BMPX, CDP #### [address] [place], [place] [id number] Java Analyst: Belén Dale MD PH,Ur 6.0 Normal 5.0-9.0 [facility] Comment on above: Performed By: #### M G, BMPX, CDP #### [address] [place], [place] [id number] Java Analyst: Belén Dale MD Protein Ql (U) Negative Normal NEG [facility] Comment on above: Performed By: #### M G, BMPX, CDP #### [address] [place], [place] [id number] Java Analyst: Belén Dale MD Spec. Tatums,Ur >1.030 High 1.010-1.02 0 [facility] Comment on above: Performed By: #### M G, BMPX, CDP #### [address] [place], [place] 7972383 Java Analyst: Belén Dale MD Urobilinogen,Ur Normal Normal NORM [facility] Comment on above: Performed By: #### M G, BMPX, CDP #### Lab [address] [place], [place] [id number] Java Analyst: Belén Dale MD Urinalysis,Microon 2 Epithelial cells LM Ql (Urine sed) 2 TO 5 Normal 0-25 [facility] Comment on above: Performed By: #### M G, BMPX, CDP #### Lab [address] [place], [place] [id number] Java Analyst: Belén Dale MD Mucus Strands 2+ Abnormal NONE [facility] Comment on above: Performed By: #### M G, BMPX, CDP #### Lab [address] [place], [place] [id number] Java Analyst: Belén Dale MD Urine RBC's 0 TO 2 Normal 0-2 [facility] Comment on above: Performed By: #### M Francisca, BMPX, CDP #### Lab [address] [place], [place] [id number] Java Analyst: Belén Dale MD Urine WBC's 0 TO 2 Normal 0-5 [facility] Comment on above: Performed By: #### M G, BMPX, CDP #### Lab [address] [place], [place] [id number] Java Analyst: Belén Dale MD Hemoglobin A1Con Glucose [Mass/Vol] 117 mg/dL Normal [facility] Comment on above: Result Comment: The ADA and AACC recommend providing the estimated average glucose result to permit better patient understanding of their HBA1c result. Performed By: #### M G, BMPX, CDP #### Lab [address] [place], [place] [id number] Java Analyst: Belén Dale MD HbA1c (Bld) [Mass fraction] 5.7 % Normal 4.0-6.0 [facility] Comment on above: Performed By: #### Ian Espinosa BMPX, CDP #### Lab [address] [place], [place] [id number] Java Analyst: Belén Dale MD CBC with Diffon 01-09-2022 Abs. Basophil <0.03 Normal 0.00-0.20 [facility] Comment on above: Performed By: #### Ian Espinsoa, BMPX, CDP #### Lab [address] [place], [place] 7887783 Java Analyst: Belén Dale MD Abs. Eosinophil <0.03 Normal 0.00-0.44 [facility] Comment on above: Performed By: #### Ian Espinosa BMPX, CDP #### Lab [address] [place] [address] Dr. [place], [place] [phone] Java Analyst: Belén Dale MD Abs.Imm.Granulocyte 0.09 k/uL Normal 0.00-0.30 [facility] Comment on above: Performed By: #### Ian Espinosa BMPX, CDP #### [address] [place], [place] 4257083 Java Analyst: Belén Dale MD Abs.Neutrophil (Seg) 7.77 k/uL Normal 1.50-8.10 [facility] Comment on above: Performed By: #### Ian Espinosa BMPX, CDP #### Lab [address] [place] [address] Java Analyst: Belén Dale MD Basophils/100 WBC (Bld) 0 % Normal 0-2 [facility] Comment on above: Performed By: #### Ian Espinosa BMPX, CDP #### Lab [address] [place], [place] 9771383 Java Analyst: Belén Dale MD Eosinophils/100 WBC (Bld) 0 % Low 1-4 [facility] Comment on above: Performed By: #### Ian Espinosa BMPX, CDP #### [address] [place], [place] [id number] Java Analyst: Belén Dale MD Erythrocyte distribution width (RBC) [Ratio] 12.0 % Normal 11.8-14.4 [facility] Comment on above: Performed By: #### Ian Espinosa BMPX, CDP #### [address] [place], [facility]83 Java Analyst: Belén Dale MD Hematocrit (Bld) [Volume fraction] 37.9 % Normal 36.3-47.1 [facility] Comment on above: Performed By: #### Ian Espinosa BMPX, CDP #### [address] [place] [address]83 Java Analyst: Belén Dale MD Hemoglobin (Bld) [Mass/Vol] 12.9 g/dL Normal 11.9-15.1 [facility] Comment on above: Performed By: #### Ian Espinosa BMPX, CDP #### [address] [place] [address]000983 Java Analyst: Belén Dale MD Immature granulocytes/100 WBC (Bld) 1 % High 0 [facility] Comment on above: Performed By: #### Ian Espinosa BMPX, CDP #### [address] [place], [facility]83 Java Analyst: Belén Dale MD Lymphocytes (Bld) [#/Vol] 1.35 10*3/uL Normal 1.10-3.70 [facility] Comment on above: Performed By: #### Ian Espinosa BMPX, CDP #### [address] [place], [place] 7602783 Java Analyst: Belén Dale MD Lymphocytes/100 WBC (Bld) 14 % Low 24-43 [facility] Comment on above: Performed By: #### M Francisca BMPX, CDP #### Lab [address] [place] [address] Java Analyst: Belén Dale MD MCH (RBC) [Entitic mass] 29.7 pg Normal 25.2-33.5 [facility] Comment on above: Performed By: #### Ian Espinosa BMPX, CDP #### Lab [address] [place], [facility]83 Java Analyst: Belén Dale MD MCHC (RBC) [Mass/Vol] 34.0 g/dL Normal 28.4-34.8 [facility] Comment on above: Performed By: #### Ian Espinosa BMPX, CDP #### [facility] [address] [place] [id number] Java Analyst: Belén Dale MD MCV (RBC) [Entitic vol] 87.1 fL Normal 82.6-102.9 [facility] Comment on above: Performed By: #### Ian Espinosa BMPX, CDP #### [address] [place], [place] [address] Java Analyst: Belén Dale MD Monocytes (Bld) [#/Vol] 0.40 10*3/uL Normal 0.10-1.20 [facility] Comment on above: Performed By: #### Ian Espinosa BMPX, CDP #### [address] [place], [facility]83 Java Analyst: Belén Dale MD Monocytes/100 WBC (Bld) 4 % Normal 3-12 [facility] Comment on above: Performed By: #### Ian Espinosa BMPX, CDP #### [facility] [address] [place], [place] [phone] Java Analyst: Belén Dale MD Neutrophil (Seg) 81 % High 36-65 [facility] Comment on above: Performed By: #### M G, BMPX, CDP #### Lab [address] [place], [place] [phone] Java Analyst: Belén Dale MD NRBC Automated 0.0 per 100 WBC Normal 0.0 [facility] Comment on above: Performed By: #### M Francisca, BMPX, CDP #### [facility] [address] [place], [place] 0246483 Java Analyst: Belén Dale MD Platelet mean volume (Bld) [Entitic vol] 9.6 fL Normal 8.1-13.5 [facility] Comment on above: Performed By: #### Ian Espinosa BMPX, CDP #### [address] [place], [place] [phone] Java Analyst: Belén Dale MD Platelets (Bld) [#/Vol] 238 10*3/uL Normal 138-453 [facility] Comment on above: Performed By: #### Ian Espinosa BMPX, CDP #### [address] [place], [place] [phone] Java Analyst: Belén Dale MD RBC (Bld) [#/Vol] 4.35 10*6/uL Normal 3.95-5.11 [facility] Comment on above: Performed By: #### Ian Espinosa BMPX, CDP #### [address] [place], [place] 6563583 Java Analyst: Belén Dale MD WBC (Bld) [#/Vol] 9.6 10*3/uL Normal 3.5-11.3 [facility] Comment on above: Performed By: #### Ian Espinosa BMPX, CDP #### [address] [place], [place] 8209783 Java Analyst: Belén Dale MD Comp Metabolic Pr/rfx MGon 1 03-12-2021 Albumin [Mass/Vol] 4.2 g/dL Normal 3.5-5.2 [facility] Comment on above: Performed By: #### M G, BMPX, CDP #### Lab [address] [place], [place] 0751383 Java Analyst: Belén Dale MD Albumin/Glob Ratio 1.7 Normal 1.0-2.5 [facility] Comment on above: Performed By: #### M G, BMPX, CDP #### Lab [address] [place], [place] 0378083 Java Analyst: Belén Dale MD Alkaline Phos 70 U/L Normal 35-104 [facility] Comment on above: Performed By: #### M G, BMPX, CDP #### [facility] [address] [place], [place] [id number] Java Analyst: Belén Dale MD ALT [Catalytic activity/Vol] 24 U/L Normal 5-33 [facility] Comment on above: Performed By: #### M G, BMPX, CDP #### Lab [address] [place], [place] [phone] Java Analyst: Belén Dale MD Anion gap [Moles/Vol] 13 mmol/L Normal 9-17 [facility] Comment on above: Performed By: #### M G, BMPX, CDP #### Lab [address] [place], [place] 5007383 Java Analyst: Belén Dale MD AST [Catalytic activity/Vol] 15 U/L Normal <32 [facility] Comment on above: Performed By: #### M G, BMPX, CDP #### Lab [address] [place], [place] 1670183 Java Analyst: Belén Dale MD Bilirubin [Mass/Vol] 0.3 mg/dL Normal 0.3-1.2 [facility] Comment on above: Performed By: #### M G, BMPX, CDP #### Lab [address] [place], [place] 0442583 Java Analyst: Belén Dale MD BUN/CRE Ratio 16 Normal 9-20 [facility] Comment on above: Performed By: #### M Francisca, BMPX, CDP #### Lab [address] [place], [place] 0846583 Java Analyst: Belné Dale MD Calcium [Mass/Vol] 9.0 mg/dL Normal 8.6-10.4 [facility] Comment on above: Performed By: #### M Francisca, BMPX, CDP #### Lab [address] [place], [place] 1126983 Java Analyst: Belén Dale MD Chloride [Moles/Vol] 105 mmol/L Normal 98-107 [facility] Comment on above: Performed By: #### Ian Espinosa BMPX, CDP #### Lab [address] [place], [place] 3651483 Java Analyst: Belén Dale MD CO2 [Moles/Vol] 21 mmol/L Normal 20-31 [facility] Comment on above: Performed By: #### Ian Espinosa BMPX, CDP #### Lab [address] [place], [place] 3594383 Java Analyst: Belén Dale MD Creatinine [Mass/Vol] 0.83 mg/dL Normal 0.50-0.90 [facility] Comment on above: Performed By: #### M Francisca, BMPX, CDP #### Lab [address] [place], [place] 9722083 Java Analyst: Belén Dale MD GFR/1.73 sq M.predicted among non-blacks MDRD (S/P/Bld) [Vol rate/Area] mL/min/{1.73_m2} Normal >60 [facility] Comment on above: Result Comment: Effective Nov [...] renal tubular secretion. Performed By: #### M Francisca, BMPX, CDP #### Lab [address] [place] [address] Java Analyst: Belén Dale MD Glucose [Mass/Vol] 183 mg/dL High 70-99 [facility] Comment on above: Performed By: #### M Francisca, BMPX, CDP #### [address] [place], [place] 2344183 Java Analyst: Belén Dale MD Potassium [Moles/Vol] 3.7 mmol/L Normal 3.7-5.3 [facility] Comment on above: Performed By: #### M Francisca BMPX, CDP #### Lab [address] [place] [address] Dr[address] [place], [place] [phone] Java Analyst: Belén Dale MD Protein [Mass/Vol] 6.7 g/dL Normal 6.4-8.3 [facility] Comment on above: Performed By: #### M Francisca, BMPX, CDP #### Lab [address] [place] [address] Dr[address] [place], [place] 7986983 Java Analyst: Belén Dale MD Sodium [Moles/Vol] 139 mmol/L Normal 135-144 [facility] Comment on above: Performed By: #### M G, BMPX, CDP #### Lab [address] [place], [place] 1150583 Java Analyst: Belén Dale MD Urea nitrogen [Mass/Vol] 13 mg/dL Normal 6-20 [facility] Comment on above: Performed By: #### M G, BMPX, CDP #### Lab [address] [place] [address] Dr[address] [place], [place] 5203583 Java Analyst: Belén Dale MD Resp Viral Panelon 2 Adenovirus Detected Abnormal [facility] Comment on above: Performed By: #### M G, BMPX, CDP #### Lab [address] [place] [address] [place] [address] Java Analyst: MD Estee Chandt.parapertussis Not detected Normal [facility] Comment on above: Performed By: #### M G, BMPX, CDP #### Lab [address] [place] [address] [place] [address] Java Analyst: Belén Dale MD Bordetella pertussis Not detected Normal [facility] Comment on above: Performed By: #### M G, BMPX, CDP #### [address] [place] [address] Java Analyst: Belén Dale MD Chlamyd.pneumoniae Not detected Normal [facility] Comment on above: Performed By: #### M G, BMPX, CDP #### [address] [place] [address] Java Analyst: Belén Dale MD Coronavirus 229E Not detected Normal [facility] Comment on above: Performed By: #### M G, BMPX, CDP #### [address] [place] [address] Java Analyst: Belén Dale MD Coronavirus HKU1 Not detected Normal [facility] Comment on above: Performed By: #### M G, BMPX, CDP #### [address] [place] [address] Java Analyst: Belén Dale MD Coronavirus NL63 Not detected Normal [facility] Comment on above: Performed By: #### M G, BMPX, CDP #### Lab [address] [place] [address] [place] [address] Java Analyst: Belén Dale MD Coronavirus OC43 Not detected [facility] Comment on above: Performed By: #### M G, BMPX, CDP #### [address] [place] [address] Java Analyst: Belén Dale MD Human Metapneumo Not detected [facility] Comment on above: Performed By: #### M G, BMPX, CDP #### Lab [address] [place] [address] [place] [address] Java Analyst: Belén Dale MD Influenza A Not detected [facility] Comment on above: Performed By: #### M G, BMPX, CDP #### [address] [place] [address] Java Analyst: Belén Dale MD Influenza B Not detected [facility] Comment on above: Performed By: #### M G, BMPX, CDP #### [address] [place] [address] Java Analyst: Belén Dale MD Mycoplas.pneumoniae Not detected [facility] Comment on above: Result Comment: Perf ormed by multiplexed nucleic acid assay. Performed By: #### M G, BMPX, CDP #### Lab [address] [place] [address] [place] [address] Java Analyst: Belén Dale MD Parainfluenza 1 Not detected [facility] Comment on above: Performed By: #### M G, BMPX, CDP #### [address] [place] [address] Java Analyst: Belén Dale MD Parainfluenza 2 Not detected [facility] Comment on above: Performed By: #### M G, BMPX, CDP #### Lab [address] [place] [address] Java Analyst: Belén Dale MD Parainfluenza 3 Not detected Normal [facility] Comment on above: Performed By: #### M G, BMPX, CDP #### Lab [address] [place] [address] Java Analyst: Belén Dale MD Parainfluenza 4 Not detected Normal [facility] Comment on above: Performed By: #### M G, BMPX, CDP #### [facility] [address] [place] [address] Java Analyst: Belén Dale MD Resp Syncytial Virus Detected Abnormal [facility] Comment on above: Performed By: #### M G, BMPX, CDP #### Lab [address] [place] [address] [place] [address] Java Analyst: Belén Dale MD Rhino/Enterovirus Not detected Normal [facility] Comment on above: Performed By: #### M G, BMPX, CDP #### [address] [place] [address] Java Analyst: Belén Dale MD SARS-CoV-2 (COVID-19) RNA CHRISTI+probe Ql (Unsp spec) Not detected Normal [facility] Comment on above: Performed By: #### M G, BMPX, CDP #### [facility] [address] [place], [place] 8469383 Java Analyst: Belén Dale MD Basic Metabolic Profon 01-08 Anion gap [Moles/Vol] 16 mmol/L Normal 10-22 [facility] Comment on above: Performed By: #### M G, BMPX, CDP #### Lab [address] [place] [address] Java Analyst: Belén Dale MD BUN/CRE Ratio 12 Normal 9-20 [facility] Comment on above: Performed By: #### Ian Espinosa BMPX, CDP #### Lab [address] [place], [place] 2083783 Java Analyst: Belén Dale MD Calcium [Mass/Vol] 9.5 mg/dL Normal 8.6-10.4 [facility] Comment on above: Performed By: #### Ian Espinosa BMPX, CDP #### Lab [address] [place] [address] Java Analyst: Belén Dale MD Chloride [Moles/Vol] 104 mmol/L Normal 98-107 [facility] Comment on above: Performed By: #### Ian Espinosa BMPX, CDP #### Lab [address] [place] [address] Java Analyst: Belén Dale MD CO2 [Moles/Vol] 20 mmol/L Normal 20-31 [facility] Comment on above: Performed By: #### CELESTINA Cam, CDP #### Lab [address] [place] [address] Java Analyst: Belén Dale MD Creatinine [Mass/Vol] 0.92 mg/dL High 0.50-0.90 [facility] Comment on above: Performed By: #### Ian Espinosa BMPX, CDP #### Lab [address] [place] [address] Java Analyst: Belén Dale MD GFR/1.73 sq M.predicted among non-blacks MDRD (S/P/Bld) [Vol rate/Area] mL/min/{1.73_m2} Normal >60 [facility] Comment on above: Result Comment: Effective Nov 07, 2021 These results are not intended for use in patients <18 years of age. eGFR results are calculated without a race factor using the 2021 CKD-EPI equation. Careful clinical correlation is recommended, particularly when comparing to results calculated using previous equations. The CKD-EPI equation is less accurate in patients with extremes of muscle mass, extra-renal metabolism of creatine, excessive creatine ingestion, or following therapy that affects renal tubular secretion. Performed By: #### CELESTINA Cam, CDP #### Lab [address] [place] [address] Java Analyst: Belén Dale MD Glucose [Mass/Vol] 187 mg/dL High 70-99 [facility] Comment on above: Performed By: #### M CELESTINA Espinosa, CDP #### Lab [address] [place] [address] Java Analyst: Belén Dale MD Potassium [Moles/Vol] 3.9 mmol/L Normal 3.7-5.3 [facility] Comment on above: Performed By: #### CELESTINA Cam, CDP #### Lab [address] [place] [address] Java Analyst: Belén Dale MD Sodium [Moles/Vol] 140 mmol/L Normal 135-144 [facility] Comment on above: Performed By: #### CELESTINA Cam, CDP #### Lab [address] [place] [address] Java Analyst: Belén Dale MD Urea nitrogen [Mass/Vol] 11 mg/dL Normal 6-20 [facility] Comment on above: Performed By: #### YANIRA CamX, CDP #### Lab [address] [place] [address] Java Analyst: Belén Dale MD Brain Natri. Peptideon 01-08 Natriuretic peptide B (Bld) [Mass/Vol] 485 pg/mL High <300 [facility] Comment on above: Result Comment: An age-independent cutoff point of 300 pg/ml has a 98% negative predictive value excluding acute heart failure. Performed By: #### M G, BMPX, CDP #### Lab [address] [place], [facility]83 Java Analyst: Belén Dale MD CBC with Diffon 01-08-2022 Abs. Basophil <0.03 Normal 0.00-0.20 [facility] Comment on above: Performed By: #### M G, BMPX, CDP #### Lab [address] [place], [place] [address] Java Analyst: Belén Dale MD Abs. Eosinophil <0.03 Normal 0.00-0.44 [facility] Comment on above: Performed By: #### M G, BMPX, CDP #### [address] [place], [place] [address] Java Analyst: Belén Dale MD Abs.Imm.Granulocyte 0.06 k/uL Normal 0.00-0.30 [facility] Comment on above: Performed By: #### M G, BMPX, CDP #### Lab [address] [place] [address] Dr[place], [place] [address] Java Analyst: Belén Dale MD Abs.Neutrophil (Seg) 9.46 k/uL High 1.50-8.10 [facility] Comment on above: Performed By: #### M G, BMPX, CDP #### [address] [place], [place] [address] Java Analyst: Belén Dale MD Basophils/100 WBC (Bld) 0 % Normal 0-2 [facility] Comment on above: Performed By: #### M G, BMPX, CDP #### Lab [address] [place] [address] Dr[place], [place] [address] Java Analyst: Belén Dale MD Eosinophils/100 WBC (Bld) 0 % Low 1-4 [facility] Comment on above: Performed By: #### M G, BMPX, CDP #### Lab [address] [place] [address] [place] [address] Java Analyst: Belén Dale MD Erythrocyte distribution width (RBC) [Ratio] 11.9 % Normal 11.8-14.4 [facility] Comment on above: Performed By: #### Ian Espinosa BMPX, CDP #### Lab [address] [place] 3000983 Java Analyst: Belén Dale MD Hematocrit (Bld) [Volume fraction] 43.8 % Normal 36.3-47.1 [facility] Comment on above: Performed By: #### M Francisca, BMPX, CDP #### [facility] [address] [place] [address] Java Analyst: Belén Dale MD Hemoglobin (Bld) [Mass/Vol] 14.6 g/dL Normal 11.9-15.1 [facility] Comment on above: Performed By: #### Ian Espinosa BMPX, CDP #### Lab [address] [place] [address] [place] [address] Java Analyst: Belén Dale MD Immature granulocytes/100 WBC (Bld) 1 % High 0 [facility] Comment on above: Performed By: #### Ian Espinosa BMPX, CDP #### [address] [place] [address] Java Analyst: Belén Dale MD Lymphocytes (Bld) [#/Vol] 0.78 10*3/uL Low 1.10-3.70 [facility] Comment on above: Performed By: #### Ian Espinosa BMPX, CDP #### Lab [address] [place], [facility]83 Java Analyst: Belén Dale MD Lymphocytes/100 WBC (Bld) 7 % Low 24-43 [facility] Comment on above: Performed By: #### Ian G, BMPX, CDP #### Lab [address] [place] [address]83 Java Analyst: Belén Dale MD MCH (RBC) [Entitic mass] 29.6 pg Normal 25.2-33.5 [facility] Comment on above: Performed By: #### Ian Espinosa BMPX, CDP #### [address] [place], [place] [id number] Java Analyst: Belén Dale MD MCHC (RBC) [Mass/Vol] 33.3 g/dL Normal 28.4-34.8 [facility] Comment on above: Performed By: #### Ian Espinosa, BMPX, CDP #### [address] [place], [place] 9139483 Java Analyst: Belén Dale MD MCV (RBC) [Entitic vol] 88.7 fL Normal 82.6-102.9 [facility] Comment on above: Performed By: #### CELESTINA Cam, CDP #### [address] [place], [facility]83 Java Analyst: Belén Dale MD Monocytes (Bld) [#/Vol] 0.19 10*3/uL Normal 0.10-1.20 [facility] Comment on above: Performed By: #### Ian Espinosa BMPX, CDP #### [address] [place], [place] 2645083 Java Analyst: Belén Dale MD Monocytes/100 WBC (Bld) 2 % Low 3-12 [facility] Comment on above: Performed By: #### Ian Espinosa BMPX, CDP #### [address] [place], [place] [id number] Java Analyst: Belén Dale MD Neutrophil (Seg) 90 % High 36-65 [facility] Comment on above: Performed By: #### Ian Espinosa BMPX, CDP #### [address] [place], [place] 9603083 Java Analyst: Belén Dale MD NRBC Automated 0.0 per 100 WBC Normal 0.0 [facility] Comment on above: Performed By: #### Ian Espinosa BMPX, CDP #### [facility] [address] [place], [facility]83 Java Analyst: Belén Dale MD Platelet mean volume (Bld) [Entitic vol] 9.6 fL Normal 8.1-13.5 [facility] Comment on above: Performed By: #### Ian Espinosa BMPX, CDP #### [address] [place], [facility]83 Java Analyst: Belén Dale MD Platelets (Bld) [#/Vol] 254 10*3/uL Normal 138-453 [facility] Comment on above: Performed By: #### YANIRA CamX, CDP #### [address] [place], [facility]83 Java Analyst: Belén Dale MD RBC (Bld) [#/Vol] 4.94 10*6/uL Normal 3.95-5.11 [facility] Comment on above: Performed By: #### CELESTINA Cam, CDP #### [address] [place], [facility]83 Java Analyst: Belén Dale MD WBC (Bld) [#/Vol] 10.5 10*3/uL Normal 3.5-11.3 [facility] Comment on above: Performed By: #### Ian Espinosa BMPX, CDP #### [address] [place], [facility]83 Java Analyst: Belén Dale MD CT SOFT TISSUE NECK [...] Justin Hatfield MD 01/08/22 Final result Normal [facility] D-Dimer Teston 01-08-2022 D-Dimer Test 0.46 mg/L FEU Normal 0.00-0.59 [facility] Comment on above: Result Comment: When combined [...] Performed By: #### CELESTINA Cam, CDP #### Lab [address] [place] [address] Java Analyst: Belén Dale MD Resp Viral Panelon Source: .NASOPHARYNGEAL SWAB Normal [facility] Comment on above: Performed By: #### CELESTINA Cam, CDP #### Lab [address] [place] [address] Java Analyst: Belén Dale MD TSH w/reflex to FT4on 2021 Thyroid Stim. Horm. 0.07 uIU/mL Low 0.30-5.00 [facility] Comment on above: Performed By: #### CELESTINA Cam, CDP #### Lab [address] [place] [address] [place] [address] Java Analyst: Belén Dale MD Thyroxine, Freeon 01-08-2022 Thyroxine, Free 1.35 ng/dL Normal 0.93-1.70 [facility] Comment on above: Performed By: #### CELESTINA Cam, CDP #### Lab [address] [place] [address] Java Analyst: Belén Dale MD Troponinon 01-08-2022 Troponin, High Sens <6 Normal 0-14 [facility] Comment on above: Result Comment: High Sensitivity Troponin values cannot be compared with other Troponin methodologies. Patients with high levels of Biotin oral intake (i.e >5mg/day) may have falsely decreased Troponin levels. Samples collected within 8 hours of biotin intake may require additional information for diagnosis. Performed By: #### Ian Espinosa BMPX, CDP #### Lab [address] [place] [address] Dr. [place], [place] [id number] Java Analyst: Belén Dale MD Venous Blood Gaseson 022 Body Temp. 37.0 Normal [facility] Comment on above: Performed By: #### M Francisca BMPX, CDP #### Lab [address] [place] [address] Dr. [place], [place] [id number] Java Analyst: Belén Dale MD HCO3 (Bld) [Moles/Vol] 15.8 mmol/L Low 24.0-30.0 [facility] Comment on above: Performed By: #### Ian Espinosa BMPX, CDP #### [address] [place], [place] [id number] Java Analyst: Belén Dale MD Negative Base Excess 5.2 mmol/L High 0.0-2.0 [facility] Comment on above: Performed By: #### Ian Espinosa BMPX, CDP #### [address] [place], [place] [id number] Java Analyst: Belén Dale MD O2 Device/Flow/% ROOM [facility] Comment on above: Performed By: #### Ian Espinosa BMPX, CDP #### [address] [place], [place] [id number] Java Analyst: Belén Dale MD Oxygen saturation in Blood 94.9 % High 60.0-85.0 [facility] Comment on above: Performed By: #### Ian Espinosa BMPX, CDP #### [address] [place] [address] Java Analyst: Belén Dale MD pCO2 21.7 mm Hg Low 39-55 [facility] Comment on above: Performed By: #### Ian Espinosa BMPX, CDP #### Lab [address] [place], [place] [id number] Java Analyst: Belén Dale MD pH (Bld) 7.481 [pH] High 7.32-7.42 [facility] Comment on above: Performed By: #### M G, BMPX, CDP #### Lab [address] [place], [place] [id number] Java Analyst: Belén Dale MD pO2 66.6 mm Hg High 30.0-50.0 [facility] Comment on above: Performed By: #### M G, BMPX, CDP #### Lab [address] [place] [address] Java Analyst: Belén Dale MD Pt. Position GRECIA Normal [facility] Comment on above: Performed By: #### M Francisca, BMPX, CDP #### Lab [address] [place] [address] Java Analyst: Belén Dale MD Respiratory rate 31 /min Normal [facility] Comment on above: Performed By: #### M Francisca, BMPX, CDP #### Lab [address] [place] [address] Java Analyst: Belén Dale MD XR CHEST PORTABLEon 01-09-20 [...] Antelmo Ramírez MD 01/08/22 Final result Normal [facility] Basic Metab w/rfx MGon 01-07 Potassium [Moles/Vol] 3.1 mmol/L Low 3.7-5.3 [facility] Comment on above: Performed By: #### M G, BMPX, CDP #### Lab [address] [place], [place] [id number] Java Analyst: Belén Dale MD Anion gap [Moles/Vol] 14 mmol/L Normal 9-17 [facility] Comment on above: Performed By: #### M G, BMPX, CDP #### Lab [address] [place], [place] 5879783 Java Analyst: Belén Dale MD BUN/CRE Ratio 9 Normal 9-20 [facility] Comment on above: Performed By: #### M G, BMPX, CDP #### Lab [address] [place], [place] [id number] Java Analyst: Belén Dale MD Calcium [Mass/Vol] 9.2 mg/dL Normal 8.6-10.4 [facility] Comment on above: Performed By: #### M G, BMPX, CDP #### Lab [address] [place], [place] 9972983 Java Analyst: Belén Dale MD Chloride [Moles/Vol] 103 mmol/L Normal 98-107 [facility] Comment on above: Performed By: #### M G, BMPX, CDP #### [facility] [address] [place], [place] [id number] Java Analyst: Belén Dale MD CO2 [Moles/Vol] 20 mmol/L Normal 20-31 [facility] Comment on above: Performed By: #### M G, BMPX, CDP #### Lab [address] [place], [place] [id number] Java Analyst: Belén Dale MD Creatinine [Mass/Vol] 0.95 mg/dL High 0.50-0.90 [facility] Comment on above: Performed By: #### M G, BMPX, CDP #### Lab [address] [place] [address] Java Analyst: Belén Dale MD GFR/1.73 sq M.predicted among non-blacks MDRD (S/P/Bld) [Vol rate/Area] mL/min/{1.73_m2} Normal >60 [facility] Comment on above: Result Comment: Effective Nov [...] affects renal tubular secretion. Performed By: #### CELESTINA Cam, CDP #### Lab [address] [place] [address] [place] [address] Java Analyst: Belén Dale MD Glucose [Mass/Vol] 180 mg/dL High 70-99 [facility] Comment on above: Performed By: #### Ian Espinosa BMPX, CDP #### Lab [address] [place] [address] Java Analyst: Belén Dale MD Sodium [Moles/Vol] 137 mmol/L Normal 135-144 [facility] Comment on above: Performed By: #### CELESTINA Cam, CDP #### Lab [address] [place] [address] Java Analyst: Belén Dale MD Urea nitrogen [Mass/Vol] 9 mg/dL Normal 6-20 [facility] Comment on above: Performed By: #### Ian Espinosa BMPX, CDP #### Lab [address] [place] [address] Java Analyst: Belén Dale MD CBC with Diffon 01-07-2022 Abs. Basophil <0.03 Normal 0.00-0.20 [facility] Comment on above: Performed By: #### Ian Espinosa BMPX, CDP #### [facility] [address] [place], [facility]83 Java Analyst: Belén Dale MD Abs.Imm.Granulocyte <0.03 Normal 0.00-0.30 [facility] Comment on above: Performed By: #### M G, BMPX, CDP #### [address] [place] [id number] Java Analyst: Belén Dale MD Abs.Neutrophil (Seg) 3.22 k/uL Normal 1.50-8.10 [facility] Comment on above: Performed By: #### Ian Espinosa, BMPX, CDP #### [address] [place] [address] Java Analyst: Belén Dale MD Basophils/100 WBC (Bld) 0 % Normal 0-2 [facility] Comment on above: Performed By: #### Ian Espinosa, BMPX, CDP #### [address] [place], [place] [address] Java Analyst: Belén Dale MD Eosinophils (Bld) [#/Vol] 0.12 10*3/uL Normal 0.00-0.44 [facility] Comment on above: Performed By: #### M G, BMPX, CDP #### [address] [place] [address]83 Java Analyst: Belén Dale MD Eosinophils/100 WBC (Bld) 3 % Normal 1-4 [facility] Comment on above: Performed By: #### M G, BMPX, CDP #### [address] [place], [facility]83 Java Analyst: Belén Dale MD Erythrocyte distribution width (RBC) [Ratio] 11.7 % Low 11.8-14.4 [facility] Comment on above: Performed By: #### M G, BMPX, CDP #### [address] [place] [id number] Java Analyst: Belén Dale MD Hematocrit (Bld) [Volume fraction] 41.1 % Normal 36.3-47.1 [facility] Comment on above: Performed By: #### Ian Espinosa, BMPX, CDP #### Lab [address] [place] [address]83 Java Analyst: Belén Dale MD Hemoglobin (Bld) [Mass/Vol] 14.1 g/dL Normal 11.9-15.1 [facility] Comment on above: Performed By: #### Ian Espinosa, BMPX, CDP #### [address] [place] [place] [address] Java Analyst: Belén Dale MD Immature granulocytes/100 WBC (Bld) 0 % Normal 0 [facility] Comment on above: Performed By: #### Ian Espinosa BMPX, CDP #### [address] [place], [place] [address] Java Analyst: Belén Dale MD Lymphocytes (Bld) [#/Vol] 1.14 10*3/uL Normal 1.10-3.70 [facility] Comment on above: Performed By: #### Ian Espinosa, BMPX, CDP #### [address] [place] [place] [address] Java Analyst: Belén Dale MD Lymphocytes/100 WBC (Bld) 23 % Low 24-43 [facility] Comment on above: Performed By: #### M G, BMPX, CDP #### [address] [place], [facility]83 Java Analyst: Belén Dale MD MCH (RBC) [Entitic mass] 29.8 pg Normal 25.2-33.5 [facility] Comment on above: Performed By: #### M G, BMPX, CDP #### [address] [place] 3000983 Java Analyst: Belén Dale MD MCHC (RBC) [Mass/Vol] 34.3 g/dL Normal 28.4-34.8 [facility] Comment on above: Performed By: #### CELESTINA Cam, CDP #### Lab [address] [place], [place] 8060083 Java Analyst: Belén Dale MD MCV (RBC) [Entitic vol] 86.9 fL Normal 82.6-102.9 [facility] Comment on above: Performed By: #### Ian Espinosa BMPX, CDP #### [facility] [address] [place], [place] 5079183 Java Analyst: Belén Dale MD Monocytes (Bld) [#/Vol] 0.36 10*3/uL Normal 0.10-1.20 [facility] Comment on above: Performed By: #### CELESTINA Cam, CDP #### [address] [place], [place] 0563483 Java Analyst: Belén Dale MD Monocytes/100 WBC (Bld) 7 % Normal 3-12 [facility] Comment on above: Performed By: #### CELESTINA Cam, CDP #### [address] [place], [place] 9723083 Java Analyst: Belén Dale MD Neutrophil (Seg) 67 % High 36-65 [facility] Comment on above: Performed By: #### YANIRA CamX, CDP #### Lab [address] [place], [place] 9232583 Java Analyst: Belén Dale MD NRBC Automated 0.0 per 100 WBC Normal 0.0 [facility] Comment on above: Performed By: #### Ian Espinosa BMPX, CDP #### Lab [address] [place], [place] [id number] Java Analyst: Belén Dale MD Platelet mean volume (Bld) [Entitic vol] 9.5 fL Normal 8.1-13.5 [facility] Comment on above: Performed By: #### Ian Espinosa BMPX, CDP #### Lab [address] [place], [place] [phone] Java Analyst: Belén Dale MD Platelets (Bld) [#/Vol] 180 10*3/uL Normal 138-453 [facility] Comment on above: Performed By: #### Ian Espinosa BMPX, CDP #### [facility] [address] [place] [address] Java Analyst: Belén Dale MD RBC (Bld) [#/Vol] 4.73 10*6/uL Normal 3.95-5.11 [facility] Comment on above: Performed By: #### Ian Espinosa BMPX, CDP #### [address] [place] [address] Java Analyst: Belén Dale MD WBC (Bld) [#/Vol] 4.9 10*3/uL Normal 3.5-11.3 [facility] Comment on above: Performed By: #### Ian Espinosa BMPX, CDP #### [address] [place], [place] 9547683 Java Analyst: Belén Dale MD Flu A/B Ag Detectionon 01-07 Flu A Ag Detection Negative Normal NEG [facility] Comment on above: Result Comment: for Influenza A Antigen Performed By: #### Ian Espinosa BMPX, CDP #### [address] [place], [place] 2626883 Java Analyst: Belén Dale MD Flu B Ag Detection Negative Normal NEG [facility] Comment on above: Result Comment: for Influenza B Antigen. Performed By: #### Ian Espinosa BMPX, CDP #### [facility] [address] [place], [place] 0479183 Java Analyst: Belén Dale MD Magnesiumon 01-07-2022 Magnesium [Mass/Vol] 1.8 mg/dL Normal 1.6-2.6 [facility] Comment on above: Performed By: #### M CELESTINA Espinosa, CDP #### Lab [address] [place] [place] [address] Java Analyst: Belén Dale MD [id number] 01-07-2022 SARS-CoV-2 (COVID-19) RNA CHRISTI+probe Ql (Unsp spec) Not detected Normal NOTDET [facility] Comment on above: Result Comment: Rapid NAAT: [...] management decisions. Fact sheet for Healthcare Providers: https://www.fda.gov/media/253748/download Fact sheet for Patients: https://www.fda.gov/media/082361/download Methodology: Isothermal Nucleic Acid Amplification Performed By: #### C OVRB #### Lab [address] [place] [address] Java Analyst: Belén Dale MD XR CHEST PORTABLEon 01-08-20 [...] Vania Rodríguez MD 01/07/22 Final result Normal [facility] XR NECK SOFT TISSUEon 2021 XR NECK [...] Susy Martin MD 01/07/22 Final result Normal [facility] US KIDNEYSon 12-26-2021 US KIDNEYS EXAMINATION: US KIDMagalis EYS HISTORY: [place] hematuria COMPARISON: 10/20/2020, 11/14/2021 TECHNIQUE: [...] by: BELÉN ANDRADE Date: 2021-12-26 07:22 Normal [facility] Feroz 12-20-2021 MACYN Telephone (AWAIS) MARCLEANA Tan ([id number]) 1985 F Date Time Provider Department 12/20/21 JUAN RAMON DODD During your visit today, we recorded the following information about you: CARINE Carrillo 12/20/2021 10:40 AM Signed Results left on patient voicemail. Leana Tran's bleeding disorders panel through [facility] was non-diagnostic or negative for a pathogenic variant. 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 This is a common polymorphism in the general population present in ~10% of individuals of white ancestry and ~1/3 of those of South ancestry. This polymorphism is not expected to contribute to disease risk for the patient. Please see Xirrus message for further discussion. CARINE Carrillo Licensed, Certified Genetic Counselor [facility] CC: Dr. Fuentes Craig Allergies As of [...] of pituit (more content not included)... Normal [facility] CBC AUTO DIFFon 12-12-2021 BASO # 0.0 103/ul Normal 0.0-0.1 [facility] Comment on above: Performed By: #### C MP #### [facility] [address] [address] [address] Nilton Mccall Basophils/100 WBC (Bld) 0.5 % Normal 0.2-2.0 [facility] Comment on above: Performed By: #### C MP #### [facility] [address] [place] [address] Dr. Nilton Mccall EO # 0.2 103/ul Normal 0.0-0.7 [facility] Comment on above: Performed By: #### C MP #### [facility] [address] [place] [address] Dr. Nilton Mccall Eosinophils/100 WBC (Bld) 3.2 % Normal 0.9-7.0 [facility] Comment on above: Performed By: #### C MP #### [facility] [address] [place] [address] Dr. Nilton Mccall Erythrocyte distribution width (RBC) [Ratio] 11.9 % Normal 11.0-15.0 [facility] Comment on above: Performed By: #### C MP #### [facility] [address] [place] [address] Dr. Nilton Mccall Hematocrit (Bld) [Volume fraction] 42.8 % Normal 36.0-48.0 [facility] Comment on above: Performed By: #### C MP #### [facility] [address] [place] [address] Dr. Nilton Mccall Hemoglobin (Bld) [Mass/Vol] 14.4 g/dL Normal 12.0-16.0 [facility] Comment on above: Performed By: #### C MP #### [facility] [address] [place] [address] Dr. Nilton Mccall IG # 0.02 10e3/ul Normal 0.00-0.03 [facility] Comment on above: Performed By: #### C MP #### [facility] [address] [place] [address] Dr. Nilton Mccall IG % 0.3 % Normal 0.0-0.5 [facility] Comment on above: Performed By: #### C MP #### [facility] [address] [place] [address] Dr. Nilton Mccall LYMPH # 1.4 103/ul Normal 1.2-3.8 [facility] Comment on above: Performed By: #### C MP #### [facility] [address] [place] [address] Dr. Nilton Mccall Lymphocytes/100 WBC (Bld) 22.3 % Normal 20.5-60.0 [facility] Comment on above: Performed By: #### C MP #### [facility] [address] [place] [address] Dr. Nilton Mccall MANUAL DIFF REQ NO Normal [facility] Comment on above: Performed By: #### C MP #### [facility] [address] [place] [address] Dr. Nilton Mccall MCH (RBC) [Entitic mass] 28.9 pg Normal 26.7-34.0 [facility] Comment on above: Performed By: #### C MP #### [facility] [address] [place] [address] Dr. Nilton Mccall MCHC (RBC) [Mass/Vol] 33.6 g/dL Normal 29.9-35.2 [facility] Comment on above: Performed By: #### C MP #### [facility] [address] [place] [address] Dr. Nilton Mccall MCV (RBC) [Entitic vol] 85.9 fL Normal 81.0-99.0 [facility] Comment on above: Performed By: #### C MP #### [facility] [address] [place] [address] Dr. Nilton Mccall MONO # 0.3 103/ul Normal 0.3-0.8 [facility] Comment on above: Performed By: #### C MP #### [facility] [address] [place] [address] Dr. Nilton Mccall Monocytes/100 WBC (Bld) 4.9 % Normal 1.7-12.0 [facility] Comment on above: Performed By: #### C MP #### [facility] [address] [place] [address] Dr. Nilton Mccall NEUT # 4.4 103/ul Normal 1.4-6.5 [facility] Comment on above: Performed By: #### C MP #### [facility] [address] [place] [address] Dr. Nilton Mccall Neutrophils/100 WBC (Bld) 68.8 % Normal 43.0-75.0 [facility] Comment on above: Performed By: #### C MP #### [facility] [address] [place] [address] Dr. Nilton Mccall Platelet mean volume (Bld) [Entitic vol] 9.9 fL Normal 9.5-13.5 [facility] Comment on above: Performed By: #### C MP #### [facility] [address] [place] [address] Dr. Nilton Mccall PLT 237 103/ul Normal 150-450 [facility] Comment on above: Performed By: #### C MP #### [facility] [address] [place] [address] Dr. Nilton Mccall RBC 4.98 106/ul Normal 4.20-5.40 [facility] Comment on above: Performed By: #### C MP #### [facility] [address] [place] [address] Dr. Nilton Mccall WBC 6.3 103/ul Normal 4.0-11.0 [facility] Comment on above: Performed By: #### C MP #### [facility] [address] [place] [address] Dr. Nilton Mccall GLYCOHEMOGLOBIN A1Con 2021 ADA RECOMMENDATION SEE BELOW Normal [facility] Comment on above: Result Comment: ADA RECOMMENDED LIMIT 4.0 - 6.0 ADA THERAPEUTIC TARGET < 7.0 ACTION SUGGESTED > 7.0 Performed By: #### P T, PTT #### [facility] [address] [place] [address] Dr. Nilton Mccall Glucose [Mass/Vol] 120 mg/dL Normal [facility] Comment on above: Performed By: #### P T, PTT #### [facility] [address] [place] [address] Dr. Nilton Mccall HbA1c (Bld) [Mass fraction] 5.8 % Normal 4.5-6.2 [facility] Comment on above: Performed By: #### P T, PTT #### [facility] [address] [address] [address] Nilton Mccall LIPID PROFILEon 12-12-2021 CHOL-HDL RATIO NORM SEE BELOW Normal [facility] Comment on above: Result Comment: 3.3 - 4.4 LOW RISK 4.4 - 7.1 AVERAGE RISK 7.1 - 11.0 MODERATE RISK >11.0 HIGH RISK Performed By: #### P T, PTT #### [facility] [address] [address] [address] Nilton Mccall Cholesterol [Mass/Vol] 225 mg/dL Critically high <=200 [facility] Comment on above: Performed By: #### P T, PTT #### [facility] [address] [address] [address] Nilton Mccall Cholesterol in HDL [Mass/Vol] 32 mg/dL Critically low 40-60 [facility] Comment on above: Performed By: #### P T, PTT #### [facility] [address] [address] [address] Nilton Mccall Cholesterol in LDL [Mass/Vol] 132.8 mg/dL Normal [facility] Comment on above: Performed By: #### P T, PTT #### [facility] [address] [address] [address] Nilton Mccall Cholesterol.total/Ch olesterol in HDL [Mass ratio] 7.0 {ratio} Normal [facility] Comment on above: Performed By: #### P T, PTT #### [facility] [address] [address] [address] Nilton Mccall HDL NORMAL > or = 60 mg/dl - LO W CARDIOVASCULAR RISK <40 mg/dl - HIGH CARDIOVASCULAR RISK Normal [facility] Comment on above: Performed By: #### P T, PTT #### [facility] [address] [address] [address] Nilton Mccall LDL CALC NORMAL SEE BELOW Normal [facility] Comment on above: Result Comment: <100 mg/dl OPTIMAL 100 - 129 mg/dl NEAR OR ABOVE OPTIMAL 130 - 159 mg/dl BORDERLINE HIGH 160 - 189 mg/dl HIGH >190 mg/dl VERY HIGH Performed By: #### P T, PTT #### [facility] [address] [address] [address] Nilton Mccall Triglyceride [Mass/Vol] 301 mg/dL Critically high <=150 [facility] Comment on above: Performed By: #### P T, PTT #### [facility] [address] [place] [address] Dr. Nilton Mccall VLDL CALC 60.2 mg/dL Normal [facility] Comment on above: Performed By: #### P T, PTT #### [facility] [address] [place] [address] Dr. Nilton Mccall LIVER PROFILEon 12-12-2021 Albumin [Mass/Vol] 4.0 g/dL Normal 3.4-5.0 [facility] Comment on above: Performed By: #### P T, PTT #### [facility] [address] [place] [address] Dr. Nilton Mccall Albumin/Globulin [Mass ratio] 1.1 {ratio} Normal [facility] Comment on above: Performed By: #### P T, PTT #### [facility] [address] [place] [address] Dr. Nilton Mccall ALP [Catalytic activity/Vol] 70 U/L Normal 46-116 [facility] Comment on above: Performed By: #### P T, PTT #### [facility] [address] [place] [address] Dr. Nilton Mccall ALT [Catalytic activity/Vol] 30 U/L Normal 14-59 [facility] Comment on above: Performed By: #### P T, PTT #### [facility] [address] [place] [address] Dr. Nilton Mccall AST [Catalytic activity/Vol] 15 U/L Normal 15-37 [facility] Comment on above: Performed By: #### P T, PTT #### [facility] [address] [place] [address] Dr. Nilton Mccall BILI, CONJUGATED 0.1 mg/dL Normal 0.0-0.2 [facility] Comment on above: Performed By: #### P T, PTT #### [facility] [address] [place] [address] Dr. Nilton Mccall Bilirubin [Mass/Vol] 0.3 mg/dL Normal 0.2-1.0 [facility] Comment on above: Performed By: #### P T, PTT #### [facility] [address] [place] [address] Dr. Nilton Mccall Globulin (S) [Mass/Vol] 3.5 g/dL Normal [facility] Comment on above: Performed By: #### P T, PTT #### [facility] [address] [place] [address] Dr. Nilton Mccall Protein [Mass/Vol] 7.5 g/dL Normal 6.4-8.2 [facility] Comment on above: Performed By: #### P T, PTT #### [facility] [address] [place] [address] Dr. Nilton Mccall PROF CHEM 8 (BAS METB)on Anion gap [Moles/Vol] 7.2 mmol/L Normal [facility] Comment on above: Performed By: #### P T, PTT #### [facility] [address] [place] [address] Dr. Nilton Mccall Calcium [Mass/Vol] 9.1 mg/dL Normal 8.5-10.1 [facility] Comment on above: Performed By: #### P T, PTT #### [facility] [address] [place] [address] Dr. Nilton Mccall Chloride [Moles/Vol] 104 mmol/L Normal 98-107 [facility] Comment on above: Performed By: #### P T, PTT #### [facility] [address] [place] [address] Dr. Nilton Mccall CO2 [Moles/Vol] 29.7 mmol/L Normal 21.0-32.0 [facility] Comment on above: Performed By: #### P T, PTT #### [facility] [address] [address] [address] Nilton Mccall Creatinine [Mass/Vol] 0.97 mg/dL Normal 0.55-1.02 [facility] Comment on above: Performed By: #### P T, PTT #### [facility] [address] [address] [address] Nilton Mccall EGFR-AF HAITIAN >60 Normal >=60 [facility] Comment on above: Performed By: #### P T, PTT #### [facility] [address] [address] [address] Nilton Mccall EGFR-NON AF HAITIAN >60 Normal >=60 [facility] Comment on above: Performed By: #### P T, PTT #### [facility] [address] [address] [address] Nilton Mccall Glucose [Mass/Vol] 92 mg/dL Normal 74-106 [facility] Comment on above: Performed By: #### P T, PTT #### [facility] [address] [address] [address] Nilton Mccall Potassium [Moles/Vol] 3.9 mmol/L Normal 3.5-5.1 [facility] Comment on above: Performed By: #### P T, PTT #### [facility] [address] [place] [address] Dr. Nilton Mccall Sodium [Moles/Vol] 137 mmol/L Normal 136-145 [facility] Comment on above: Performed By: #### P T, PTT #### [facility] [address] [address] [address] Nilton Mccall Urea nitrogen [Mass/Vol] 14.0 mg/dL Normal 7.0-18.0 [facility] Comment on above: Performed By: #### P T, PTT #### [facility] [address] [address] [address] Nilton Mccall Urea nitrogen/Creatinine [Mass ratio] 14.4 mg/mg Normal [facility] Comment on above: Performed By: #### P T, PTT #### [facility] [address] [address] [address] Nilton Mccall TSHon 12-12-2021 TSH 0.340 uIU/mL Critically low 0.358-3.74 0 [facility] Comment on above: Performed By: #### P T, PTT #### [facility] [address] [address] [address] Nilton Mccall VITAMIN D 25 OHon 12-12-2021 VIT D 25-OH 44.3 ng/mL Normal [facility] Comment on above: Performed By: #### P T, PTT #### [facility] [address] [address] [address] Nilton Mccall VIT D RANGES SEE BELOW Normal [facility] Comment on above: Result Comment: <20 ng/mL Vit D deficient 20 - <30 ng/mL Vit D insufficient 30 - 100 ng/mL Vit D sufficient >100 ng/mL Potential Toxicity Performed By: #### P T, PTT #### [facility] [address] [place] [address] Dr. Nilton Mccall CNOVon 12-02-2021 CNOV Office Visit (SYNCMN ) LEANA TRAN ([id number]) 1985 F Date Time Provider Department 12/02/21 [...] Ofelia Allen RN Procedure Finish Time: 933 Referring Provider: SELF [200] Allergies As of [...] [I95.1] Symptomatic bradycardia [R00.1] Order(s):SALINE LOCK DISCONTINUE [9009931] Order #: [id number]: 1 INTERMITTENT PERIPHERAL DEVICE ([place], [place]) [1992449] Order #: [id number]: 1 Prescriptions as of 12/02/2021 - arformoterol [...] 50 mg (more content not included)... Normal [facility] 12-01-2021 CNPN Telephone (CARDMN) LEANA TRAN ([id number]) 1985 F Date Time Provider Department 12/01/21 [...] Physical deconditioning (more content not included)... Normal [facility] CNOVSPon 11-18-2021 CNOVSP Visit (SP) Office (H EMASA) LEANA TRAN ([id number]) 1985 F Date Time Provider Department 11/18/21 [...] breast ch (more content not included)... Normal [facility] CULTURE URINEon 11-18-2021 CULTURE URINE Culture Observations : HEAVY GROWTH OF MIXED GENITAL CHANCE. NO POTENTIAL PATHOGENS SEEN. Normal [facility] Comment on above: Performed By: #### P T, PTT #### [facility] [address] [address] [address] Nilton Redman 11-16-2021 [facility] Telephone ([facility]) LEANA TRAN ([id number]) 1985 F Date Time Provider Department 11/16/21 MEENA GRISSOM [facility] During your visit today, we recorded the [...] Ma - Fully Assessed Reason for Visit: Kiln Placer - Other [3602] Cmt: Download Prescriptions as [...] [J30.9] 07/07 (more content not included)... Normal [facility] 11-15-2021 [facility] Telephone ([facility]) LEANA TRAN ([id number]) 1985 F Date Time Provider Department 11/15/21 [facility] During your visit today, we recorded the [...] reaction to (more content not included)... Normal [facility] CBC AUTO DIFFon 11-14-2021 BASO # 0.0 103/ul Normal 0.0-0.1 [facility] Comment on above: Performed By: #### P T, PTT #### [facility] [address] [address] [address] Nilton Mccall Basophils/100 WBC (Bld) 0.6 % Normal 0.2-2.0 [facility] Comment on above: Performed By: #### P T, PTT #### [facility] [address] [address] [address] Nilton Mccall EO # 0.2 103/ul Normal 0.0-0.7 [facility] Comment on above: Performed By: #### P T, PTT #### [facility] [address] [address] [address] Nilton Mccall Eosinophils/100 WBC (Bld) 2.6 % Normal 0.9-7.0 [facility] Comment on above: Performed By: #### P T, PTT #### [facility] [address] [address] [address] Nilton Mccall Erythrocyte distribution width (RBC) [Ratio] 11.9 % Normal 11.0-15.0 [facility] Comment on above: Performed By: #### P T, PTT #### [facility] [address] [place] [address] Dr. Nilton Mccall Hematocrit (Bld) [Volume fraction] 39.7 % Normal 36.0-48.0 [facility] Comment on above: Performed By: #### P T, PTT #### [facility] [address] [place] [address] Dr. Nilton Mccall Hemoglobin (Bld) [Mass/Vol] 13.8 g/dL Normal 12.0-16.0 [facility] Comment on above: Performed By: #### P T, PTT #### [facility] [address] [place] [address] Dr. Nilton Mccall IG # 0.03 10e3/ul Normal 0.00-0.03 [facility] Comment on above: Performed By: #### P T, PTT #### [facility] [address] [place] [address] Dr. Nilton Mccall IG % 0.5 % Normal 0.0-0.5 [facility] Comment on above: Performed By: #### P T, PTT #### [facility] [address] [place] [address] Dr. Nilton Mccall LYMPH # 1.7 103/ul Normal 1.2-3.8 [facility] Comment on above: Performed By: #### P T, PTT #### [facility] [address] [place] [address] Dr. Nilton Mccall Lymphocytes/100 WBC (Bld) 26.0 % Normal 20.5-60.0 [facility] Comment on above: Performed By: #### P T, PTT #### [facility] [address] [place] [address] Dr. Nilton Mccall MANUAL DIFF REQ NO Normal [facility] Comment on above: Performed By: #### P T, PTT #### [facility] [address] [place] [address] Dr. Nilton Mccall MCH (RBC) [Entitic mass] 29.6 pg Normal 26.7-34.0 [facility] Comment on above: Performed By: #### P T, PTT #### [facility] [address] [place] [address] Dr. Nilton Mccall MCHC (RBC) [Mass/Vol] 34.8 g/dL Normal 29.9-35.2 [facility] Comment on above: Performed By: #### P T, PTT #### [facility] [address] [place] [address] Dr. Nilton Mccall MCV (RBC) [Entitic vol] 85.0 fL Normal 81.0-99.0 [facility] Comment on above: Performed By: #### P T, PTT #### [facility] [address] [place] [address] Dr. Nilton Mccall MONO # 0.3 103/ul Normal 0.3-0.8 [facility] Comment on above: Performed By: #### P T, PTT #### [facility] [address] [place] [address] Dr. Nilton Mccall Monocytes/100 WBC (Bld) 5.1 % Normal 1.7-12.0 [facility] Comment on above: Performed By: #### P T, PTT #### [facility] [address] [place] [address] Dr. Nilton Mccall NEUT # 4.2 103/ul Normal 1.4-6.5 [facility] Comment on above: Performed By: #### P T, PTT #### [facility] [address] [place] [address] Dr. Nilton Mccall Neutrophils/100 WBC (Bld) 65.2 % Normal 43.0-75.0 [facility] Comment on above: Performed By: #### P T, PTT #### [facility] [address] [place] [address] Dr. Nilton Mccall Platelet mean volume (Bld) [Entitic vol] 9.4 fL Critically low 9.5-13.5 [facility] Comment on above: Performed By: #### P T, PTT #### [facility] [address] [place] [address] Dr. Nilton Mccall PLT 232 103/ul Normal 150-450 [facility] Comment on above: Performed By: #### P T, PTT #### [facility] [address] [place], [place] [address] Dr. Nilton Mccall RBC 4.67 106/ul Normal 4.20-5.40 [facility] Comment on above: Performed By: #### P T, PTT #### [facility] [address] [place], [place] [address] Dr. Nilton Mccall WBC 6.4 103/ul Normal 4.0-11.0 [facility] Comment on above: Performed By: #### P T, PTT #### [facility] [address] [place], [place] [address] ABD/PELVIS WO CONon [...] BELÉN ANDRADE Date: 2021-11-14 14:24 Normal [facility] ER URINE PROFILEon 2 Bilirubin Ql (U) Negative Normal NEGATIVE [facility] Comment on above: Performed By: #### C BC #### [facility] [address] [address] [address] Nilton Mccall Clarity (U) CLEAR Normal CLEAR [facility] Comment on above: Performed By: #### C BC #### [facility] [address] [place] [address] Dr. Nilton Mccall Color (U) LT. YELLOW Normal YELLOW [facility] Comment on above: Performed By: #### C BC #### [facility] [address] [place] [address] Dr. Nilton Mccall ERUAHD A micrscopic examina tion will be performed if indicated. Normal [facility] Comment on above: Performed By: #### C BC #### [facility] [address] [place] [address] Dr. Nilton Mccall Glucose Ql (U) Negative Normal NEGATIVE [facility] Comment on above: Performed By: #### C BC #### [facility] [address] [place] [address] Dr. Nilton Mccall Hemoglobin Ql (U) Negative Normal NEGATIVE [facility] Comment on above: Performed By: #### C BC #### [facility] [address] [place] [address] Dr. Nilton Mccall Ketones Ql (U) Negative Normal NEGATIVE [facility] Comment on above: Performed By: #### C BC #### [facility] [address] [place] [address] Dr. Nilton Mccall LEUKOCYTES Negative Normal NEGATIVE [facility] Comment on above: Performed By: #### C BC #### [facility] [address] [place] [address] Dr. Nilton Mccall Nitrite Ql (U) Negative Normal NEGATIVE [facility] Comment on above: Performed By: #### C BC #### [facility] [address] [place] [address] Dr. Nilton Mccall pH (U) 6.0 [pH] Normal 5-9 [facility] Comment on above: Performed By: #### C BC #### [facility] [address] [place] [address] Dr. Nilton Mccall SPEC GRAVITY 1.025 Normal 1.005-<=1. 025 [facility] Comment on above: Performed By: #### C BC #### [facility] [address] [place] [address] Dr. Nilton Mccall UA PROTEIN Negative Normal NEGATIVE/ TRACE [facility] Comment on above: Performed By: #### C BC #### [facility] [address] [place] [address] Dr. Nilton Mccall UR MICRO IND NOT INDICATED Normal [facility] Comment on above: Performed By: #### C BC #### [facility] [address] [place] [address] Dr. Nilton Mccall Urobilinogen Qn (U) 0.2 {Zarina'U}/dL Normal 0.2 - 1. 0 [facility] Comment on above: Performed By: #### C BC #### [facility] [address] [place] [address] Dr. Nilton Mccall MONOon 11-14-2021 Monocytes (Bld) [#/Vol] Negative Normal NEGATIVE [facility] Comment on above: Performed By: #### P T, PTT #### [facility] [address] [place] [address] Dr. Nilton Mccall PROF 14(COMP METB)on 022 Albumin [Mass/Vol] 3.8 g/dL Normal 3.4-5.0 [facility] Comment on above: Performed By: #### C MP #### [facility] [address] [place] [address] Dr. Nilton Mccall Albumin/Globulin [Mass ratio] 1.2 {ratio} Normal [facility] Comment on above: Performed By: #### C MP #### [facility] [address] [place] [address] Dr. Nilton Mccall ALP [Catalytic activity/Vol] 65 U/L Normal 46-116 [facility] Comment on above: Performed By: #### C MP #### [facility] [address] [place] [address] Dr. Nilton Mccall ALT [Catalytic activity/Vol] 29 U/L Normal 14-59 [facility] Comment on above: Performed By: #### C MP #### [facility] [address] [address] [address] Nilton Mccall Anion gap [Moles/Vol] 8.6 mmol/L Normal [facility] Comment on above: Performed By: #### C MP #### [facility] [address] [address] [address] Nilton Mccall AST [Catalytic activity/Vol] 13 U/L Critically low 15-37 [facility] Comment on above: Performed By: #### C MP #### [facility] [address] [place] [address] Dr. Nilton Mccall Bilirubin [Mass/Vol] 0.4 mg/dL Normal 0.2-1.0 [facility] Comment on above: Performed By: #### C MP #### [facility] [address] [place] [address] Dr. Nilton Mccall Calcium [Mass/Vol] 8.9 mg/dL Normal 8.5-10.1 [facility] Comment on above: Performed By: #### C MP #### [facility] [address] [place] [address] Dr. Nilton Mccall Chloride [Moles/Vol] 106 mmol/L Normal 98-107 [facility] Comment on above: Performed By: #### C MP #### [facility] [address] [place] [address] Dr. Nilton Mccall CO2 [Moles/Vol] 26.2 mmol/L Normal 21.0-32.0 [facility] Comment on above: Performed By: #### C MP #### [facility] [address] [place] [address] Dr. Nilton Mccall Creatinine [Mass/Vol] 1.12 mg/dL Critically high 0.55-1.02 [facility] Comment on above: Performed By: #### C MP #### [facility] [address] [place] [address] Dr. Nilton Mccall EGFR-AF HAITIAN >60 Normal >=60 [facility] Comment on above: Performed By: #### C MP #### [facility] [address] [place] [address] Dr. Nilton Mccall EGFR-NON AF HAITIAN 55 mL/min/1.73m2 Critically low >=60 [facility] Comment on above: Performed By: #### C MP #### [facility] [address] [address] [address] Nilton Mccall Globulin (S) [Mass/Vol] 3.3 g/dL Normal [facility] Comment on above: Performed By: #### C MP #### [facility] [address] [address] [address] Nilton Mccall Glucose [Mass/Vol] 88 mg/dL Normal 74-106 [facility] Comment on above: Performed By: #### C MP #### [facility] [address] [place] [address] Dr. Nilton Mccall Potassium [Moles/Vol] 3.8 mmol/L Normal 3.5-5.1 [facility] Comment on above: Performed By: #### C MP #### [facility] [address] [place] [address] Dr. Nilton Mccall Protein [Mass/Vol] 7.1 g/dL Normal 6.4-8.2 [facility] Comment on above: Performed By: #### C MP #### [facility] [address] [place] [address] Dr. Nilton Mccall Sodium [Moles/Vol] 137 mmol/L Normal 136-145 [facility] Comment on above: Performed By: #### C MP #### [facility] [address] [address] [address] Nilton Mccall Urea nitrogen [Mass/Vol] 14.0 mg/dL Normal 7.0-18.0 [facility] Comment on above: Performed By: #### C MP #### [facility] [address] [place] [address] Dr. Nilton Mccall Urea nitrogen/Creatinine [Mass ratio] 12.5 mg/mg Normal [facility] Comment on above: Performed By: #### C MP #### [facility] [address] [place] [address] Dr. Nilton Mccall CNOVSPon 11-03-2021 CNOVSP Visit (SP) Office (H EMASA) LEANA TRAN ([id number]) 1985 F Date Time Provider Department 11/03/21 11:00 AM FUENTES AMARAL During your visit today, we recorded the following information about you: Temperature Pulse Respiration Blood pressure 97.6 degrees 59/minute 16/minute 120/63 Weight Height 100 kg 1.626 m Fuentes Amaral MD 11/06/2021 5:22 PM Signed HEMATOLOGY FOLLOW [...] workup. PLAN: 1. Need Mammogram results from [place] 2. Proceed with genetic testing for platelet [...] AND SOCI (more content not included)... Normal [facility] CNPNon 11-01-2021 CNPN Telephone (GMINE) LEANA TRAN ([id number]) 1985 F Date Time Provider Department 11/01/21 [...] testing including a bleeding disorders panel through [facility]. We reviewed self-pay options for this testing, and the patient is interested in pursuing testing on a self-pay basis. The listed self-pay fuller on [employer] website is $1060. I encouraged the patient to also discuss with her new methods specialist engineer, Dr. Fuentes Amaral during their meeting scheduled for this 11/03/21 before making her final decision. The patient agreed to send me a [employer] message with her decision following her appointment with Dr. Amaral. For additional context please see my clinic note from 08/03/21. Juan Ramon Briones MS, [facility] [place] Licensed, Certified Genetic Counselor [facility] CC: Dr. Fuentes Amaral Allergies As of [...] Date Reviewed: 10/31/2021 Reviewed by: Landen Clark APRN.[employer] FACILITATOR - Fully Assessed Reason for Visit: Insurance Authorization [[id number]] Prescriptions as of 11/01/2021 - levalbuterol tartrate [...] as o (more content not included)... Normal [facility] 10-28-2021 [facility] Telephone (MNOPRX) LEANA TRAN ([id number]) 1985 F Date Time Provider Department 10/28/21 FARIBA CARBONE During your visit today, we recorded the following information about you: Fariba [place] [facility] 10/28/2021 2:24 PM Signed Benefits investigation was conducted, indicating that a prior authorization is required for Ajovy auto-injector 225 mg/1.5 mL . PA was initiated and pending review through [employer]. All pertinent clinical information was submitted to insurance. CMM [place]: [id number] Ordering Provider: GIOVANNA Chi, Pharmacist [facility] P: , F: Jenni Rocha RN 11/01/2021 9:18 AM Signed Ambulatory Pharmacy Prior Authorization Note Provider Intervention Required?: No- Pharmacy completed on your behalf. Drug: AJOVY (fremanezumab-vfrm) injection 225MG/1.5ML auto-injectors Cover My Meds [place]: [id number] Determination: Denied PA Denied because: Medical necessity not met Prior Authorization/Case #: [id number] Prior Authorization Expiration: n/A Time to PA [...] feel free to send new eRx to [facility] at that time. No further action by [facility] for now and existing order to be profiled. Jenni Rocha, [facility] P: , F: For questions relating to this submission, please contact [facility] [phone] Bhargavi Saldana PA-C 11/01/2021 9:27 AM Signed [...] Fully Assessed Reason for Visit: Insurance Authorization [[id number]] Cmt: Ajovy Prescriptions as of 11/28/2021 - arformoterol (BROVANA) [...] mg by (more content not included)... Normal [facility] Feroz 10-27-2021 [facility] Telephone ([place]) LEANA TRAN ([id number]) 1985 F Date Time Provider Department 10/27/21 [...] Fully Assessed Reason for Visit: Lab Orders [[id number]] Prescriptions as of 03/10/2022 - DULoxetine (CYMBALTA) [...] [R52] 08/24/19 (more content not included)... Normal [facility] Feroz 10-24-2021 RYANNE Telephone (HEMTSA) MARCLEANA ([id number]) 1985 F Date Time Provider Department 10/24/21 [...] 10/20/2021 Encount (more content not included)... Normal [facility] MG MAMM DIAGNOSTIC 3D LARS CA Don 10-19-2021 MG MAMM DIAGNOSTIC 3D LARS CAD Patient: LEANA TRAN Exam Date: 10/19/2021 : 1985 Gender:F Ordering : DR CAS DOWELL . Admission #: [id number] Family : Order #: [id number] CLICK HERE TO VIEW EXAM RADIOLOGY REPORT [...] cervical cancer at age 48. LOCATION: [facility] BREAST COMPOSITION: Scattered areas fibroglandular density. [...] M.D. on 10/19/2021 at 11:10 Normal [facility] US BREAST LARS LIMITEDon 09- US BREAST LARS LIMITED Patient: LEANA TRAN Exam Date: 10/19/2021 : 1985 Gender:F Ordering : DR CAS DOWELL . Admission #: [id number] Family : Order #: [id number] CLICK HERE TO VIEW EXAM RADIOLOGY REPORT [...] cervical cancer at age 48. LOCATION: [facility] BREAST COMPOSITION: Scattered areas fibroglandular density. [...] M.D. on 10/19/2021 at 11:10 Normal [facility] XR CHEST 2V FRONTAL/LATon [facility] LUNG DIFFUSION CAPACITY (FARHAD O)on 09-27-2021 DLCO (ml/min/mmHg) 22.00 ml/min/mmHg [facility] DLCO/VA (ml/min/mmHg/L) 4.60 ml/min/mmHg/L [facility] DLCOcor (ml/min/mmHg) 21.26 ml/min/mmHg [facility] ERV BOX (L) 0.28 L [facility] FGO47-40% POST (L/S) 2.46 L/S [facility] PGS46-92% PRE (L/S) 2.13 L/S [facility] FEV1 PRE (L) 2.83 L [facility] FEV1/FVC POST (%) 74 % [facility] FEV1/FVC PRE (%) 73 % [facility] FEV1_POST (L) 2.92 L [facility] FRC Box (L) 1.66 L [facility] FVC POST (L) 3.92 L [facility] FVC PRE (L) 3.89 L [facility] IC BOX (L) 2.36 L [facility] PEF POST (L/S) 5.48 L/S [facility] PEF PRE (L/S) 5.56 L/S [facility] RV Box (L) 1.39 L [facility] RV/TLC Box (%) 32 % [facility] TLC Box (L) 4.36 L [facility] VA (L) 4.78 L [facility] VC (L) BOX 3.51 L [facility] CTA CHEST WO W CONon 022 CTA CHEST WO W CON EXAMINATION: CTA TONO ST CON HISTORY: SHORTNESS OF BREATH elevated d-dimer [...] by: AYAKA STEARNS Date: 2021-09-22 22:30 Normal [facility] PROF CHEM 8 (BAS METB)on Anion gap [Moles/Vol] 5.4 mmol/L Normal [facility] Comment on above: Performed By: #### B MP #### [facility] [address] [place] [address] Dr. Nilton Mccall Calcium [Mass/Vol] 9.2 mg/dL Normal 8.5-10.1 [facility] Comment on above: Performed By: #### B MP #### [facility] [address] [address] [address] Nilton Mccall Chloride [Moles/Vol] 102 mmol/L Normal 98-107 [facility] Comment on above: Performed By: #### B MP #### [facility] [address] [address] [address] Nilton Mccall CO2 [Moles/Vol] 26.1 mmol/L Normal 21.0-32.0 [facility] Comment on above: Performed By: #### B MP #### [facility] [address] [place] [address] Dr. Nilton Mccall Creatinine [Mass/Vol] 0.99 mg/dL Normal 0.55-1.02 [facility] Comment on above: Performed By: #### B MP #### [facility] [address] [address] [address] Nilton Mccall EGFR-AF HAITIAN >60 Normal >=60 [facility] Comment on above: Performed By: #### B MP #### [facility] [address] [place] [address] Dr. Nilton Mccall EGFR-NON AF HAITIAN >60 Normal >=60 [facility] Comment on above: Performed By: #### B MP #### [facility] [address] [place] [address] Dr. Nilton Mccall Glucose [Mass/Vol] 113 mg/dL Critically high 74-106 [facility] Comment on above: Performed By: #### B MP #### [facility] [address] [place] [address] Dr. Nilton Mccall Potassium [Moles/Vol] 3.5 mmol/L Normal 3.5-5.1 [facility] Comment on above: Performed By: #### B MP #### [facility] [address] [place] [address] Dr. Nilton Mccall Sodium [Moles/Vol] 130 mmol/L Critically low 136-145 [facility] Comment on above: Performed By: #### B MP #### [facility] [address] [place] [address] Dr. Nilton Mccall Urea nitrogen [Mass/Vol] 13.0 mg/dL Normal 7.0-18.0 [facility] Comment on above: Performed By: #### B MP #### [facility] [address] [place] [address] Dr. Nilton Mccall Urea nitrogen/Creatinine [Mass ratio] 13.1 mg/mg Normal [facility] Comment on above: Performed By: #### B MP #### [facility] [address] [address] [address] Nilton Mccall GLYCOHEMOGLOBIN A1Con 2021 ADA RECOMMENDATION SEE BELOW Normal [facility] Comment on above: Result Comment: ADA RECOMMENDED LIMIT 4.0 - 6.0 ADA THERAPEUTIC TARGET < 7.0 ACTION SUGGESTED > 7.0 Performed By: #### C BC #### [facility] [address] [address] [address] Nilton Mccall Glucose [Mass/Vol] 140 mg/dL Normal [facility] Comment on above: Performed By: #### C BC #### [facility] [address] [address] [address] Nilton Mccall HbA1c (Bld) [Mass fraction] 6.5 % Critically high 4.5-6.2 [facility] Comment on above: Performed By: #### C BC #### [facility] [address] [address] [address] Nilton Mccall ECHOon 08-17-2021 Echocardiography Echocardiography Rep ort: Transthoracic Echo [facility] Date of service: 08/17/2021 2:18:31 PM Ordering physician: SAI PEREZ Indication: Hypotension Technologist: Yuni Durbin [facility] Interpreting physician: Gavin Muse MD PATIENT: Name: [...] * * Final * * * CC [employer] : [id number] Normal [facility] LVEF ECHOon 08-17-2021 LV Ejection Fraction 58 % [facility] PAP ACOG PANEL 2: 30 to 65on 08-05-2021 . . Normal [facility] Comment on above: Result Comment: Perf ormed at: WB Performed By: #### P T, PTT #### [facility] [address] [address] [address] Nilton Mccall Age Gdln ACOG Testing -63 Normal [facility] Comment on above: Performed By: #### P T, PTT #### [facility] [address] [address] [address] Nilton Mccall DIAGNOSIS: Comment Normal [facility] Comment on above: Result Comment: NEGA TIVE FOR INTRAEPITHELIAL LESION OR MALIGNANCY. Performed at: WB Performed By: #### P T, PTT #### [facility] [address] [address] [address] Nilton Mccall HPV Aptima Negative Normal Negative [facility] Comment on above: Result Comment: This nucleic acid amplification test detects fourteen high-risk HPV types (16,18,31,33,35,39,45,51,52,56,58,59,66,68) without differentiation. Performed at: =G Performed By: #### P T, PTT #### [facility] [address] [place] [address] Dr. Nilton Mccall Methodology: Comment Normal [facility] Comment on above: Result Comment: This liquid based ThinPrep(R) pap test was screened with the use of an image guided system. Performed at: WB Performed By: #### P T, PTT #### [facility] [address] [place] [address] Dr. Nilton Mccall Note: Comment Normal [facility] Comment on above: Result Comment: The Pap [...] Performed By: #### P T, PTT #### [facility] [address] [place] [address] Dr. Nilton Mccall Performed by: Comment Normal [facility] Comment on above: Result Comment: Jay Ellison, Lip Reading Teacher (ASCP) Performed at: WB Performed By: #### P T, PTT #### [facility] [address] [place] [address] Dr. Nilton Mccall Specimen adequacy: Comment Normal [facility] Comment on above: Result Comment: Sati sfactory for evaluation. No endocervical component is identified. Performed at: WB Performed By: #### P T, PTT #### [facility] [address] [place] [address] Dr. Nilton Mccall C3 SerPl-mCncon 07-25-2021 Complement C3 [Mass/Vol] 165 mg/dL Normal 86-166 [facility] Comment on above: Order Comment: Speci men Type: BLOOD SPECIMEN Ordering Facility: [facility] Address: [address] [place] [address] Performed By: #### 4 485-9, 4498-2 #### [facility] CLIA [id number] [address] [place] [address] [place] C4 SerPl-mCncon 07-25-2021 Complement C4 [Mass/Vol] 32 mg/dL Normal 13-46 [facility] Comment on above: Order Comment: Speci men Type: BLOOD SPECIMEN Ordering Facility: [facility] Address: [address] [place] [address] Performed By: #### 4 485-9, 4498-2 #### [facility] CLIA [id number] [address] [place] [address] TRYPTASE BLOODon 07-25-2021 Tryptase [Mass/Vol] 3.4 ug/L Normal <8.4 [facility] Comment on above: Order Comment: Speci men Type: BLOOD SPECIMEN Ordering Facility: [facility] Address: [address] [place] [address] Performed By: #### T RYPT #### [facility] CLIA [id number] [address] [place] [address] OF [facility] ACTH [facility] 07-18-2021 Corticotropin (P) [Mass/Vol] 15.5 pg/mL 7.2 - 63.3 pg/mL [facility] CORTISOL [facility] 07-18-2021 Cortisol [Mass/Vol] 9.9 ug/dL 4.8 - 19 .5 ug/dL [facility] Alpha tocopherol [Mass/Vol]o n 07-07-2021 Beta+gamma tocopherol [Mass/Vol] 3.0 mg/L 0.3 - 3.2 mg/L [facility] VITAMIN E/TOCOPHEROLon 07-07 Alpha tocopherol [Mass/Vol] 13.1 mg/L 6.0 - 23.0 mg/L [facility] ACTH [facility] 07-02-2021 Corticotropin (P) [Mass/Vol] 15.1 pg/mL 7.2 - 63.3 pg/mL [facility] CERULOPLASMIN [facility] 07-02-19 22 Ceruloplasmin [Mass/Vol] 23 mg/dL 16 - 45 mg/dL [facility] CK CREATINE KINASEon 022 CK [Catalytic activity/Vol] 51 U/L 42 - 196 U/L [facility] CORTISOL Don 07-01-2021 Cortisol [Mass/Vol] 7.4 ug/dL 4.8 - 19 .5 ug/dL [facility] DHEA-S [facility] 07-01-2021 DHEA-S [Mass/Vol] 35.9 ug/dL Low 60.9 - 337.0 ug/dL [facility] FERRITIN [facility] 07-01-2021 Ferritin [Mass/Vol] 98.2 ng/mL 14.7 - 205.1 ng/mL [facility] BNPon 06-24-2021 Natriuretic peptide B (Bld) [Mass/Vol] 15.0 pg/mL Normal <=450.0 [facility] Comment on above: Performed By: #### C BC #### [facility] [address] [place] [address] Dr. Nilton Mccall CARDIAC CHAYO 3-6on 2 CK [Catalytic activity/Vol] 60 U/L Normal 26-192 [facility] Comment on above: Performed By: #### C MREP #### [facility] [address] [place] [address] Dr. Nilton Mccall CK.MB [Mass/Vol] 0.33 ng/mL Normal <=3.60 [facility] Comment on above: Performed By: #### C MREP #### [facility] [address] [place] [address] Dr. Nilton Mccall HSTROP 4.7 pg/mL Normal 4.0-51.3 [facility] Comment on above: Result Comment: CUT- OFF POINTS HAVE BEEN ESTABLISHED BASED ON THE FOURTH UNIVERSAL DEFINITIONS OF MYOCARDIAL INFARCTION. THE UPPER REFERENCE LIMIT (URL) OF TROPONIN, DEFINED THE 99TH PERCENTILE OF cTnI DISTRIBUTION IN A REFERENCE POPULATION, HAS BEEN CONFIRMED THE DECISION THRESHOLD FOR [place] DIAGNOSIS. Performed By: #### C MREP #### [facility] [address] [place] [address] Dr. Nilton Mccall CARDIAC CHAYO ADMITon 022 CK [Catalytic activity/Vol] 71 U/L Normal 26-192 [facility] Comment on above: Performed By: #### C BC #### [facility] [address] [place] [address] Dr. Nilton Mccall CK.MB [Mass/Vol] 0.50 ng/mL Normal <=3.60 [facility] Comment on above: Performed By: #### C BC #### [facility] [address] [place] [address] Dr. Nilton Mccall HSTROP 3.8 pg/mL Critically low 4.0-51.3 [facility] [place] Comment on above: Result Comment: CUT- OFF POINTS HAVE BEEN ESTABLISHED BASED ON THE FOURTH UNIVERSAL DEFINITIONS OF MYOCARDIAL INFARCTION. THE UPPER REFERENCE LIMIT (URL) OF TROPONIN, DEFINED THE 99TH PERCENTILE OF cTnI DISTRIBUTION IN A REFERENCE POPULATION, HAS BEEN CONFIRMED THE DECISION THRESHOLD FOR [place] DIAGNOSIS. Performed By: #### C BC #### [facility] [address] [place] [address] Dr. Nilton Mccall PILI 25 ng/mL Normal 9-82 [facility] Comment on above: Performed By: #### C BC #### [facility] [address] [place] [address] Dr. Nilton Mccall CBC AUTO DIFFon 06-24-2021 BASO # 0.1 103/ul Normal 0.0-0.1 [facility] Comment on above: Performed By: #### C MP #### [facility] [address] [place] [address] Dr. Nilton Mccall Basophils/100 WBC (Bld) 0.6 % Normal 0.2-2.0 [facility] Comment on above: Performed By: #### C MP #### [facility] [address] [place] [address] Dr. Nilton Mccall EO # 0.2 103/ul Normal 0.0-0.7 [facility] Comment on above: Performed By: #### C MP #### [facility] [address] [place] [address] Dr. Nilton Mccall Eosinophils/100 WBC (Bld) 2.2 % Normal 0.9-7.0 [facility] Comment on above: Performed By: #### C MP #### [facility] [address] [place] [address] Dr. Nilton Mccall Erythrocyte distribution width (RBC) [Ratio] 11.8 % Normal 11.0-15.0 [facility] Comment on above: Performed By: #### C MP #### [facility] [address] [address] [address] Nilton Mccall Hematocrit (Bld) [Volume fraction] 43.4 % Normal 36.0-48.0 [facility] Comment on above: Performed By: #### C MP #### [facility] [address] [address] [address] Nilton Mccall Hemoglobin (Bld) [Mass/Vol] 14.8 g/dL Normal 12.0-16.0 [facility] Comment on above: Performed By: #### C MP #### [facility] [address] [address] [address] Nilton Mccall IG # 0.04 10e3/ul Critically high 0.00-0.03 [facility] Comment on above: Performed By: #### C MP #### [facility] [address] [address] [address] Nilton Mccall IG % 0.4 % Normal 0.0-0.5 [facility] Comment on above: Performed By: #### C MP #### [facility] [address] [address] [address] Nilton Mccall LYMPH # 2.0 103/ul Normal 1.2-3.8 [facility] Comment on above: Performed By: #### C MP #### [facility] [address] [place] [address] Dr. Nilton Mccall Lymphocytes/100 WBC (Bld) 21.5 % Normal 20.5-60.0 [facility] Comment on above: Performed By: #### C MP #### [facility] [address] [place] [address] Dr. Nilton Mccall MANUAL DIFF REQ NO Normal [facility] Comment on above: Performed By: #### C MP #### [facility] [address] [place] [address] Dr. Nilton Mccall MCH (RBC) [Entitic mass] 29.4 pg Normal 26.7-34.0 [facility] Comment on above: Performed By: #### C MP #### [facility] [address] [address] [address] Nilton Mccall MCHC (RBC) [Mass/Vol] 34.1 g/dL Normal 29.9-35.2 [facility] Comment on above: Performed By: #### C MP #### [facility] [address] [address] [address] Nilton Mccall MCV (RBC) [Entitic vol] 86.1 fL Normal 81.0-99.0 [facility] Comment on above: Performed By: #### C MP #### [facility] [address] [address] [address] Nilton Mccall MONO # 0.5 103/ul Normal 0.3-0.8 [facility] Comment on above: Performed By: #### C MP #### [facility] [address] [place] [address] Dr. Nilton Mccall Monocytes/100 WBC (Bld) 5.4 % Normal 1.7-12.0 [facility] Comment on above: Performed By: #### C MP #### [facility] [address] [place] [address] Dr. Nilton Mccall NEUT # 6.3 103/ul Normal 1.4-6.5 [facility] Comment on above: Performed By: #### C MP #### [facility] [address] [place] [address] Dr. Nilton Mccall Neutrophils/100 WBC (Bld) 69.9 % Normal 43.0-75.0 [facility] Comment on above: Performed By: #### C MP #### [facility] [address] [place] [address] Dr. Nilton Mccall Platelet mean volume (Bld) [Entitic vol] 9.6 fL Normal 9.5-13.5 [facility] Comment on above: Performed By: #### C MP #### [facility] [address] [place] [address] Dr. Nilton Mccall PLT 290 103/ul Normal 150-450 [facility] Comment on above: Performed By: #### C MP #### [facility] [address] [place], [place] [address] Dr. Nilton Mccall RBC 5.04 106/ul Normal 4.20-5.40 [facility] Comment on above: Performed By: #### C MP #### [facility] [address] [place], [place] [address] Dr. Nilton Mccall WBC 9.1 103/ul Normal 4.0-11.0 [facility] Comment on above: Performed By: #### C MP #### [facility] [id number] Nilton Mccall CT STROKE HEAD WOon [...] MAREK EPSTEIN Date: 2021-06-24 20:56 Normal [facility] CT STROKE HEAD WO NONCONTRAST CT SCAN [...] MAREK EPSTEIN Date: 2021-06-24 19:15 Normal [facility] Covid-19 PCR (CVDTBH)on 06-06 SARS-CoV-2 (COVID-19) RNA CHRISTI+probe Ql (Unsp spec) Not detected Normal NOT DETECTED [facility] Comment on above: Result Comment: When diagnostic [...] for this test is supported by the [place] of Health and Human Service's declaration that [...] Performed By: #### P T, PTT #### [facility] [address] [place] [address] Dr. Nilton Mccall ER URINE PROFILEon 2 Bilirubin Ql (U) Negative Normal NEGATIVE [facility] Comment on above: Performed By: #### E RUR, PREGU #### [facility] [address] [place] [address] Dr. Nilton Mccall Clarity (U) CLEAR Normal CLEAR [facility] Comment on above: Performed By: #### E RUR, PREGU #### [facility] [address] [place] [address] Dr. Nilton Mccall Color (U) YELLOW Normal YELLOW [facility] Comment on above: Performed By: #### E RUR, PREGU #### [facility] [address] [place] [address] Dr. Nilton Mccall ERUAHD A micrscopic examina tion will be performed if indicated. Normal [facility] Comment on above: Performed By: #### E RUR, PREGU #### [facility] [address] [place] [address] Dr. Nilton Mccall Glucose Ql (U) Negative Normal NEGATIVE [facility] Comment on above: Performed By: #### E RUR, PREGU #### [facility] [address] [place] [address] Dr. Nilton Mccall Hemoglobin Ql (U) Negative Normal NEGATIVE [facility] Comment on above: Performed By: #### E RUR, PREGU #### [facility] [address] [place] [address] Dr. Nilton Mccall Ketones Ql (U) Negative Normal NEGATIVE [facility] Comment on above: Performed By: #### E RUR, PREGU #### [facility] [address] [place] [address] Dr. Nilton Mccall LEUKOCYTES Negative Normal NEGATIVE [facility] Comment on above: Performed By: #### E RUR, PREGU #### [facility] [address] [place] [address] Dr. Nilton Mccall Nitrite Ql (U) Negative Normal NEGATIVE [facility] Comment on above: Performed By: #### E RUR, PREGU #### [facility] [address] [place] [address] Dr. Nilton Mccall pH (U) 6.0 [pH] Normal 5-9 [facility] Comment on above: Performed By: #### E RUR, PREGU #### [facility] [address] [place] [address] Dr. Nilton Mccall SPEC GRAVITY 1.015 Normal 1.005-<=1. 025 [facility] Comment on above: Performed By: #### E RUR, PREGU #### [facility] [address] [place] [address] Dr. Nilton Mccall UA PROTEIN Negative Normal NEGATIVE/ TRACE [facility] Comment on above: Performed By: #### E RUR, PREGU #### [facility] [address] [place] [address] Dr. Nilton Mccall UR MICRO IND NOT INDICATED Normal [facility] Comment on above: Performed By: #### E RUR, PREGU #### [facility] [address] [place] [address] Dr. Nilton Mccall Urobilinogen Qn (U) 0.2 {Zarina'U}/dL Normal 0.2 - 1. 0 [facility] Comment on above: Performed By: #### E RUR, PREGU #### [facility] [address] [place] [address] Dr. Nilton Mccall LACTATE/LACTIC ACIDon 2021 Lactate [Moles/Vol] 1.0 mmol/L Normal 0.4-1.9 [facility] Comment on above: Performed By: #### P T, PTT #### [facility] [address] [place] [address] Dr. Nilton Mccall LIPASEon 06-24-2021 Lipase [Catalytic activity/Vol] 103.0 U/L Normal 73.0-393.0 [facility] Comment on above: Performed By: #### C BC #### [facility] [address] [place] [address] Dr. Nilton Mccall PH VENOUS BLOODon 06-24-2021 PCO2 VENOUS 29.4 mmHg Critically low 40.0-52.0 [facility] Comment on above: Performed By: #### P T, PTT #### [facility] [address] [place] [address] Dr. Nilton Mccall pH VENOUS 7.478 Critically high 7.330-7.43 0 [facility] Comment on above: Performed By: #### P T, PTT #### [facility] [address] [place] [address] Dr. Nilton Mccall POINT OF CARE GLUCOSEon 06-06 Glucose [Mass/Vol] 107 mg/dL Critically high 74-106 [facility] Comment on above: Performed By: #### C MP #### [facility] [address] [place] [address] Dr. Nilton Mccall URon 06-24-2021 , QUAL Negative Normal NEGATIVE [facility] Comment on above: Performed By: #### E RUR, PREGU #### [facility] Laboratory [address] [place] [address] Dr. Nilton Mccall PROTIMEon 06-24-2021 INR Coag (PPP) [Relative time] 0.99 {INR} Normal [facility] Comment on above: Performed By: #### P T, PTT #### [facility] [address] [place] [address] Dr. Nilton Mccall INR GUIDELINES SEE BELOW Normal [facility] [place] Comment on above: Result Comment: JOSS RED INR: 2.0 - 3.0 CONDITIONS NOT LISTED BELOW 2.5 - 3.5 FOR PROSTHETIC HEART VALVE REPLACEMENT 2.5 - 3.5 RECURRENT THROMBOSIS Performed By: #### P T, PTT #### [facility] [address] [place] [address] Dr. Nilton Mccall PT Coag (PPP) [Time] 10.7 s Normal 9.0-11.6 [facility] Comment on above: Performed By: #### P T, PTT #### [facility] [address] [place] [address] Dr. Nilton Mccall PTTon 06-24-2021 aPTT Coag (Bld) [Time] 32.5 s Normal 22.3-36.2 [facility] Comment on above: Performed By: #### P T, PTT #### [facility] [address] [place] [address] Dr. Nilton Mccall TSHon 06-24-2021 TSH 0.655 uIU/mL Normal 0.358-3.74 0 [facility] Comment on above: Performed By: #### C BC #### [facility] [address] [place] [address] Dr. Nilton Mccall TSH RANGE SEE BELOW Normal [facility] Comment on above: Result Comment: <0.3 4 UIU/ml HYPERTHYROID 0.34-5.60 UIU/ml EUTHYROID >5.60 UIU/ml HYPOTHYROID Performed By: #### C BC #### [facility] [address] [place] [address] Dr. Nilton Mccall XR CHEST 1 Von [...] BELÉN DC Date: 2021-06-24 19:14 Normal [facility] Basic Metabolic Panelon 06-05 Anion gap [Moles/Vol] 11 mmol/L 9 - 17 mmol/L [facility] Calcium [Mass/Vol] 9.3 mg/dL 8.6 - 10. 4 mg/dL [facility] Chloride [Moles/Vol] 102 mmol/L 98 - 10 7 mmol/L [facility] CO2 [Moles/Vol] 23 mmol/L 20 - 31 mmol/L [facility] Creatinine [Mass/Vol] 0.78 mg/dL 0.50 - 0.90 mg/dL [facility] GFR >60 >60 mL/min [facility] GFR Non- >60 >60 mL/min [facility] Glucose [Mass/Vol] 160 mg/dL High 70 - 99 mg/dL [facility] Interpretation and review of laboratory results Abnormal [facility] Potassium [Moles/Vol] 3.7 mmol/L 3.7 - 5.3 mmol/L [facility] Sodium [Moles/Vol] 136 mmol/L 135 - 144 mmol/L [facility] Urea nitrogen (BldV) [Mass/Vol] 12 mg/dL 6 - 20 mg/dL [facility] Urea nitrogen/Creatinine (Bld) [Mass ratio] 15 [facility] CBC with Auto Differentialon 06-21-2021 Absolute Eos # 0.21 [facility] th Absolute Immature Granulocyte 0.03 [facility] Absolute Lymph # 2.43 [facility] alth Absolute [place] # 0.43 [facility] lth Basophils (Bld) [#/Vol] 0.05 10*3/uL [facility] Basophils/100 WBC (Bld) 1 % 0 - 2 % [facility] Eosinophils/100 WBC (Bld) 3 % 1 - 4 % [facility] Hematocrit (Bld) [Volume fraction] 41.8 % 36.3 - 47.1 % [facility] Hemoglobin.gastroint estinal spec 1 Ql (Stl) 14.0 g/dL 11.9 - 15.1 g/dL [facility] Immature granulocytes/100 WBC (Bld) 0 % 0 [facility] Interpretation and review of laboratory results Abnormal [facility] Lymphocytes/100 WBC (Bld) 29 % 24 - 43 % [facility] MCH (RBC) [Entitic mass] 29.2 pg 25.2 - 33.5 pg [facility] MCHC (RBC) [Mass/Vol] 33.5 g/dL 28.4 - 34.8 g/dL [facility] MCV (RBC) [Entitic vol] 87.1 fL 82.6 - 102.9 fL [facility] Monocytes/100 WBC (Bld) 5 % 3 - 12 % [facility] NRBC Automated 0.0 0.0 per 100 WBC [facility] Platelet distribution width (Bld) [Ratio] 11.5 % Low 11.8 - 14.4 % [facility] Platelet mean volume (Bld) [Entitic vol] 9.6 fL 8.1 - 13.5 fL [facility] Platelets (Bld) [#/Vol] 264 10*3/uL [facility] RBC (Bld) [#/Vol] 4.80 10*6/uL 3.95 - 5.11 m/uL [facility] Segmented neutrophils/100 WBC (Bld) 62 % 36 - 65 % [facility]s [facility]ld[facility] [#/Vol] 8.3 10*3/uL [facility] Laboratory - Chemistry and C hemistry - challengeon 06-21-2021 GFR/1.73 sq M.predicted MDRD (S/P/Bld) [Vol rate/Area] [facility] Comment on above: Average GFR for 30-3 9 years old: 107 mL/min/1.73sq m Chronic Kidney Disease: <60 mL/min/1.73sq m Kidney failure: <15 mL/min/1.73sq m eGFR calculated using average adult body mass. Additional eGFR calculator available at: http://www.[employer]/multiple_crcl_2012.htm Stage 1: Some kidney damage normal GFR Stage 2: Mild kidney damage GFR 60-89 Stage 3: Moderate kidney damage GFR 30-59 Stage 4: Severe kidney damage GFR 15-29 Stage 5: Severe kidney damage GFR <15 ESRD - chronic treatment by dialysis or transplant Magnesiumon 06-21-2021 Magnesium [Mass/Vol] 1.8 mg/dL 1.6 - 2 .6 mg/dL [facility] TSHon 06-21-2021 TSH Qn 1.33 m[IU]/L [facility] Troponinon 06-21-2021 Troponin, High Sensitivity <6 0 - 14 ng/L [facility] [employer] Comment on above: High Sensitivity Troponin values cannot be compared with other Troponin methodologies. Patients with high levels of Biotin oral intake (i.e >5mg/day) may have falsely decreased Troponin levels. Samples collected within 8 hours of biotin intake may require additional information for diagnosis. [facility] [employer] XR CHEST PORTABLEon 06-22-19 No acute cardiopulmo nary disease. [facility] [[email or web address] RIS CONSOLIDATED EXAMINATION: ONE XRAY VIEW OF THE CHEST 06/21/2021 12:52 am COMPARISON: 05/20/2021 HISTORY: ORDERING SYSTEM PROVIDED HISTORY: chest pain TECHNOLOGIST PROVIDED HISTORY: chest pain FINDINGS: Heart size and configuration are normal. Hilar and mediastinal structures are unremarkable. The lungs are clear. No pneumothorax or pleural fluid. No acute bone finding. [facility] [[email or web address] RIS CONSOLIDATED Armando Stern MD - 06/21/2021 EXAMINATION: ONE XRAY VIEW OF THE CHEST 06/21/2021 12:52 am COMPARISON: 05/20/2021 HISTORY: ORDERING SYSTEM PROVIDED HISTORY: chest pain TECHNOLOGIST PROVIDED HISTORY: chest pain FINDINGS: Heart size and configuration are normal. Hilar and mediastinal structures are unremarkable. The lungs are clear. No pneumothorax or pleural fluid. No acute bone finding. IMPRESSION: No acute cardiopulmonary disease. [employer] Work Phone: Radiology Study observation (narrative) [employer] Work Phone: XR CHEST PORTABLEOrdered By: Armando Stern on 06-21-2021 [employer] Work Phone: [facility]ALTH[facility] 06-16-2021 [facility] HNO ID: [id number] Author: RT Geovanna(R) Service: ? Author Type: [...] Multiple Sclerosis SIGNATURE: Evelyn Montaño, RT(R), Jolanta Jordan RT(R) PATIENT NAME: Leana Tran DATE: June 16, 2021 TIME: 11:05 AM [facility] MRI BRAIN WO/W IVCONon 06-16 MRI BRAIN WO/W IVCON * * *Final Report* * * DATE OF EXAM: Jun 16 2021 11:27AM [facility] [id number] - MRI BRAIN WO/W IVCON [...] of the brain with and without contrast. Visual Supervisor: PSCB Transcribe Date/Time: Jun 16 2021 11:31A Dictated by : ANNA BOLAND MD This examination was interpreted and the report reviewed and electronically signed by: ANNA BOLAND MD on Jun 16 2021 11:53AM EST [id number] Normal [facility] ACTH Don 06-14-2021 Corticotropin (P) [Mass/Vol] 11.6 pg/mL 7.2 - 63.3 pg/mL [facility] Basic Metabolic Panel w/ Ref douglas to [facility] 05-20-2021 Anion gap [Moles/Vol] 11 mmol/L 9 - 17 mmol/L [employer] Calcium [Mass/Vol] 9.1 mg/dL 8.6 - 10. 4 mg/dL [employer] Chloride [Moles/Vol] 103 mmol/L 98 - 10 7 mmol/L [employer] CO2 [Moles/Vol] 23 mmol/L 20 - 31 mmol/L [employer] Creatinine [Mass/Vol] 0.74 mg/dL 0.50 - 0.90 mg/dL [facility] GFR >60 >60 mL/min [facility] GFR Non- >60 >60 mL/min [employer] Glucose [Mass/Vol] 101 mg/dL High 70 - 99 mg/dL [facility] Interpretation and review of laboratory results Abnormal [employer] Potassium [Moles/Vol] 3.7 mmol/L 3.7 - 5.3 mmol/L [employer] Sodium [Moles/Vol] 137 mmol/L 135 - 144 mmol/L [employer] Urea nitrogen (BldV) [Mass/Vol] 9 mg/dL 6 - 20 mg/dL [employer] Urea nitrogen/Creatinine (Bld) [Mass ratio] 12 [facility] [employer] Brain Natriuretic Peptideon 05-20-2021 Natriuretic peptide B (Bld) [Mass/Vol] 173 pg/mL <300 [facility] Comment on above: An age-independent cutoff point of 300 pg/ml has a 98% negative predictive value excluding acute heart failure. C-Reactive Proteinon 022 CRP [Mass/Vol] mg/L 0.0 - 5.0 mg/L [facility] CBC with Auto Differentialon 05-20-2021 Absolute Eos # 0.18 [facility] th Absolute Immature Granulocyte 0.03 [facility] Absolute Lymph # 1.75 [facility] alth Absolute [place] # 0.29 [facility] lth Basophils (Bld) [#/Vol] 0.03 10*3/uL [facility] Basophils/100 WBC (Bld) 0 % 0 - 2 % [facility] Eosinophils/100 WBC (Bld) 3 % 1 - 4 % [facility] Hematocrit (Bld) [Volume fraction] 43.8 % 36.3 - 47.1 % [facility] Hemoglobin.gastroint estinal spec 1 Ql (Stl) 14.6 g/dL 11.9 - 15.1 g/dL [facility] Immature granulocytes/100 WBC (Bld) 0 % 0 [facility] Interpretation and review of laboratory results Abnormal [facility] Lymphocytes/100 WBC (Bld) 25 % 24 - 43 % [facility] MCH (RBC) [Entitic mass] 29.0 pg 25.2 - 33.5 pg [facility] MCHC (RBC) [Mass/Vol] 33.3 g/dL 28.4 - 34.8 g/dL [facility] MCV (RBC) [Entitic vol] 86.9 fL 82.6 - 102.9 fL [facility] Monocytes/100 WBC (Bld) 4 % 3 - 12 % [facility] NRBC Automated 0.0 0.0 per 100 WBC [facility] Platelet distribution width (Bld) [Ratio] 11.5 % Low 11.8 - 14.4 % [facility] Platelet mean volume (Bld) [Entitic vol] 9.5 fL 8.1 - 13.5 fL [facility] Platelets (Bld) [#/Vol] 242 10*3/uL [facility] RBC (Bld) [#/Vol] 5.04 10*6/uL 3.95 - 5.11 m/uL [facility] Segmented neutrophils/100 WBC (Bld) 68 % High 36 - 65 % [facility] Segs Absolute 4.67 [facility] h WBC (Bld) [#/Vol] 7.0 10*3/uL [facility] CT ABDOMEN PELVIS WO CONTRAS T Additional Contrast? Noneon 05-20-2021 1. No acute abdomina l or pelvic findings. 2. There is diastasis of the rectus abdominus fascia in the midline lower abdomen measuring up to 3 cm. A loop of colon is seen to protrude into the small defect without evidence of incarceration. 3. Hepatic steatosis [facility] [[email or web address]] RIS CONSOLIDATED EXAMINATION: CT OF THE ABDOMEN AND PELVIS [...] incarceration or obstruction. No suspicious osseous lesions. PN RIS CONSOLIDATED Jesus Unger P - 05/20/2021 EXAMINATION: CT [...] without evidence of incarceration. 3. Hepatic steatosis [employer] Phone: Radiology Study observation (narrative) [employer] Phone: CT ABDOMEN PELVIS WO CONTRAS T Additional Contrast? NoneOrdered By: Jesus Unger on 05-20-2021 [employer] Phone: D-Dimer, Quantitativeon 05-06 [employer], Quant 0.34 [facility] [employer] [facility] Comment on above: When combined with a [...] more prevalent in patients with distal DVT. [employer] Drug screen multi urineon Amphetamine Screen, Ur Negative NEGATIVE [employer] Barbiturate Screen, Ur Negative NEGATIVE [employer] Benzodiazepine Screen, Urine Negative NEGATIVE [employer] Buprenorphine Urine Negative NEGATIVE [employer] Cannabinoid Scrn, Ur Negative NEGATIVE [employer] Cocaine Metabolite, Urine Negative NEGATIVE [employer] Methadone Screen, Urine Negative NEGATIVE [employer] Methamphetamine, Urine Negative NEGATIVE [employer] Opiates, Urine Negative NEGATIVE [employer] [facility] th Oxycodone Screen, Ur Negative NEGATIVE [employer] Phencyclidine, Urine Negative NEGATIVE [employer] Propoxyphene, Urine Negative NEGATIVE [employer] Tricyclic Antidepressants, Urine Negative NEGATIVE [facility] Comment on above: Drug screen results are to be used for medical purposes only. All positive results are unconfirmed. Testing for employment or legal uses should be sent to a reference laboratory for confirmation. [employer] EKG 12 LeadOrdered By: Gosia quinn on 05-20-2021 Atrial Rate 51 BPM [employer] Work Phone: P [place] 56 degrees [employer] Work Phone: P-R Interval 152 ms [employer] Work Phone: Q-T Interval 448 ms [employer] Work Phone: QRS Duration 90 ms [employer] Work Phone: QTc Calculation (Bazett) 412 ms [employer] Work Phone: R [place] 79 degrees [employer] Work Phone: T [place] 62 degrees [employer] Work Phone: Ventricular Rate 51 BPM [employer] Work Phone: [employer] Work Phone: EKG 12 Leadon 05-20-2021 Sinus bradycardia wi th sinus arrhythmia T wave abnormality, consider anterior ischemia Abnormal ECG When compared with ECG of 16-APR-2021 20:11, No significant change was found Confirmed by Gosia Rangel MD ([id number]) on 05/20/2021 6:51:52 PM [facility] Gosia Rangel MD - 05/20/2021 Sinus bradycardia with sinus arrhythmia T wave abnormality, consider anterior ischemia Abnormal ECG When compared with ECG of 16-APR-2021 20:11, No significant change was found Confirmed by Gosia Rangel MD ([id number]) on 05/20/2021 6:51:52 PM [employer] Work Phone: Laboratory - Chemistry and C hemistry - challengeon 05-20-2021 GFR/1.73 sq M.predicted MDRD (S/P/Bld) [Vol rate/Area] [employer] Comment on above: Average GFR for 30-3 9 years old: 107 mL/min/1.73sq m Chronic Kidney Disease: <60 mL/min/1.73sq m Kidney failure: <15 mL/min/1.73sq m eGFR calculated using average adult body mass. Additional eGFR calculator available at: http://www.[employer]/multiple_crcl_2012.htm Stage 1: Some kidney damage normal GFR Stage 2: Mild kidney damage GFR 60-89 Stage 3: Moderate kidney damage GFR 30-59 Stage 4: Severe kidney damage GFR 15-29 Stage 5: Severe kidney damage GFR <15 ESRD - chronic treatment by dialysis or transplant Lactic Acidon 05-20-2021 Lactate [Moles/Vol] 0.9 mmol/L 0.5 - 2. 2 mmol/L [facility] Lipaseon 05-20-2021 Lipase [Catalytic activity/Vol] 46 U/L 13 - 60 U/L [facility] Microscopic Urinalysison - [facility] Bacteria, UA TRACE Abnormal None [facility] Epithelial Cells UA 0 TO 2 [facility] Interpretation and review of laboratory results Abnormal [facility] RBC, UA None [facility] WBC, UA None [facility] No Panel Informationon 05-20 [facility] Sedimentation Rateon 022 Sed Rate 9 [facility] TSH with Reflexon 05-20-2021 TSH Qn 1.20 m[IU]/L [facility] Troponinon 05-20-2021 Troponin, High Sensitivity <6 0 - 14 ng/L [facility] Comment on above: High Sensitivity Troponin values cannot be compared with other Troponin methodologies. Patients with high levels of Biotin oral intake (i.e >5mg/day) may have falsely decreased Troponin levels. Samples collected within 8 hours of biotin intake may require additional information for diagnosis. [facility] Troponin, High Sensitivity <6 0 - 14 ng/L [facility] Comment on above: High Sensitivity Troponin values cannot be compared with other Troponin methodologies. Patients with high levels of Biotin oral intake (i.e >5mg/day) may have falsely decreased Troponin levels. Samples collected within 8 hours of biotin intake may require additional information for diagnosis. Urinalysis with Reflex to Cu ltureon 05-20-2021 Bilirubin Urine Negative NEGATIVE [facility] lt Color, UA Yellow Yellow [facility] Glucose, Ur Negative NEGATIVE [facility] Interpretation and review of laboratory results Abnormal [facility] Ketones Ql (U) Negative NEGATIVE [facility] Leukocyte esterase Test strip Ql (U) Negative NEGATIVE [facility] Nitrite, Urine Negative NEGATIVE [facility] pH, UA 6.0 [facility] Protein, UA Negative NEGATIVE [facility] Specific Tatums, UA <1.005 Low [facility] Turbidity UA Clear Clear [facility] Urine Hgb Negative NEGATIVE [facility] Urobilinogen, Urine Normal Normal [facility] XR CHEST PORTABLEon 05-21-19 22 No abnormalities not ed. PN RIS CONSOLIDATED EXAMINATION: ONE XRAY VIEW OF THE CHEST 05/20/2021 1:33 pm COMPARISON: 04/16/2021 HISTORY: ORDERING SYSTEM PROVIDED HISTORY: chest pain TECHNOLOGIST PROVIDED HISTORY: chest pain FINDINGS: The lungs appear clear. The heart and mediastinal structures are unremarkable. Bony thorax appears normal. Visualized upper abdomen is unremarkable. [facility] [[email or web address]] Yoel Rendon MD - 05/20/2021 EXAMINATION: ONE XRAY VIEW OF THE CHEST 05/20/2021 1:33 pm COMPARISON: 04/16/2021 HISTORY: ORDERING SYSTEM PROVIDED HISTORY: chest pain TECHNOLOGIST PROVIDED HISTORY: chest pain FINDINGS: The lungs appear clear. The heart and mediastinal structures are unremarkable. Bony thorax appears normal. Visualized upper abdomen is unremarkable. IMPRESSION: No abnormalities noted. [employer] Work Phone: Radiology Study observation (narrative) [employer] Work Phone: XR CHEST PORTABLEOrdered By: Yoel Shabazz on 05-20-2021 [employer] Work Phone: Basic Metabolic Panel w/ Ref douglas to [facility] 04-16-2021 Anion gap [Moles/Vol] 11 mmol/L 9 - 17 mmol/L [employer] Calcium [Mass/Vol] 9.8 mg/dL 8.6 - 10. 4 mg/dL [employer] Chloride [Moles/Vol] 99 mmol/L 98 - 10 7 mmol/L [employer] CO2 [Moles/Vol] 24 mmol/L 20 - 31 mmol/L [employer] Creatinine [Mass/Vol] 0.85 mg/dL 0.50 - 0.90 mg/dL [employer] GFR >60 >60 mL/min [employer] GFR Non- >60 >60 mL/min [employer] Glucose [Mass/Vol] 97 mg/dL 70 - 99 mg/dL [employer] Interpretation and review of laboratory results Abnormal [employer] Potassium [Moles/Vol] 3.8 mmol/L 3.7 - 5.3 mmol/L [employer] Sodium [Moles/Vol] 134 mmol/L Low 135 - 144 mmol/L [employer] Urea nitrogen (BldV) [Mass/Vol] 9 mg/dL 6 - 20 mg/dL [employer] Urea nitrogen/Creatinine (Bld) [Mass ratio] 11 [employer] C-Reactive Proteinon 022 CRP [Mass/Vol] mg/L 0.0 - 5.0 mg/L [facility] CBC with Auto Differentialon 04-16-2021 Absolute Eos # 0.19 [facility] th Absolute Immature Granulocyte 0.03 [facility] Absolute Lymph # 2.01 [facility] alth Absolute [place] # 0.47 [facility] lth Basophils (Bld) [#/Vol] 0.05 10*3/uL [facility] Basophils/100 WBC (Bld) 1 % 0 - 2 % [facility] Eosinophils/100 WBC (Bld) 2 % 1 - 4 % [facility] Hematocrit (Bld) [Volume fraction] 44.1 % 36.3 - 47.1 % [facility] Hemoglobin.gastroint estinal spec 1 Ql (Stl) 14.9 g/dL 11.9 - 15.1 g/dL [facility] Immature granulocytes/100 WBC (Bld) 0 % 0 [facility] Interpretation and review of laboratory results Abnormal [facility] Lymphocytes/100 WBC (Bld) 22 % Low 24 - 43 % [facility] MCH (RBC) [Entitic mass] 29.2 pg 25.2 - 33.5 pg [facility] MCHC (RBC) [Mass/Vol] 33.8 g/dL 28.4 - 34.8 g/dL [facility] MCV (RBC) [Entitic vol] 86.5 fL 82.6 - 102.9 fL [facility] Monocytes/100 WBC (Bld) 5 % 3 - 12 % [facility] NRBC Automated 0.0 0.0 per 100 WBC [facility] Platelet distribution width (Bld) [Ratio] 11.4 % Low 11.8 - 14.4 % [facility] Platelet mean volume (Bld) [Entitic vol] 9.5 fL 8.1 - 13.5 fL [facility] Platelets (Bld) [#/Vol] 265 10*3/uL [facility] RBC (Bld) [#/Vol] 5.10 10*6/uL 3.95 - 5.11 m/uL [facility] Segmented neutrophils/100 WBC (Bld) 70 % High 36 - 65 % [facility] Segs [facility] 6.[facility] [#/Vol] 9.1 10*3/uL [facility] CT ABDOMEN PELVIS WO CONTRAS T Additional [...] the liver. Previous cholecystectomy without biliary dilatation. [facility] RIS CONSOLIDATED EXAMINATION: CT OF THE ABDOMEN AND PELVIS [...] lumbosacral facets and at the sacroiliac joints. [facility] [[email or web address] RIS Michael Ewing - 04/16 EXAMINATION: CT OF THE ABDOMEN [...] the liver. Previous cholecystectomy without biliary dilatation. [employer] Phone: Radiology Study observation (narrative) [employer] Phone: CT ABDOMEN PELVIS WO CONTRAS T Additional Contrast? NoneOrdered By: Michael Frausto on 04-16-2021 [employer] Phone: D-Dimer, Quantitativeon 04-05 [employer], Quant 0.37 [facility] [employer] [facility] Comment on above: When combined with a [...] more prevalent in patients with distal DVT. [employer] Hepatic Function Panelon Albumin [Mass/Vol] 4.7 g/dL 3.5 - 5.2 g/dL [employer] Albumin/Globulin [Mass ratio] 1.8 {ratio} [employer] ALP (Bld) [Catalytic activity/Vol] 73 U/L 35 - 104 U/L [facility] ALT [Catalytic activity/Vol] 24 U/L 5 - 33 U/L [facility] AST [Catalytic activity/Vol] 14 U/L <32 [facility] Bilirubin [Mass/Vol] 0.35 mg/dL 0.3 - 1 .2 mg/dL [facility] Bilirubin, Indirect Can not be calculated 0.00 - 1.00 mg/dL [facility] Bilirubin.indirect [Mass/Vol] mg/dL <0.31 mg/dL [facility] Free PSA/Total PSA [Mass fraction] 7.3 g/dL 6.4 - 8.3 g/dL [facility] Laboratory - Chemistry and C hemistry - challengeon 04-16-2021 GFR/1.73 sq M.predicted MDRD (S/P/Bld) [Vol rate/Area] [facility] Comment on above: Average GFR for 30-3 9 years old: 107 mL/min/1.73sq m Chronic Kidney Disease: <60 mL/min/1.73sq m Kidney failure: <15 mL/min/1.73sq m eGFR calculated using average adult body mass. Additional eGFR calculator available at: http://www.[employer]/multiple_crcl_2011.htm Stage 1: Some kidney damage normal GFR Stage 2: Mild kidney damage GFR 60-89 Stage 3: Moderate kidney damage GFR 30-59 Stage 4: Severe kidney damage GFR 15-29 Stage 5: Severe kidney damage GFR <15 ESRD - chronic treatment by dialysis or transplant Lipaseon 04-16-2021 Lipase [Catalytic activity/Vol] 29 U/L 13 - 60 U/L [facility] Microscopic Urinalysison - [facility] Bacteria, UA 2+ Abnormal None [facility] Epithelial Cells UA 2 TO 5 [facility] Interpretation and review of laboratory results Abnormal [facility] RBC, UA 0 TO 2 [facility] WBC, UA 2 TO 5 [facility] No Panel Informationon 04-16 [facility] , Urineon 2 Beta HCG ( test) Ql (U) Negative NEGATIVE [facility] Comment on above: Specimens with hCG l evels near the threshold of the test (25 mIU/mL) may give a negative or indeterminate result. In such cases, another test should be performed with a new specimen in 48-72 hours. If early is suspected clinically in this setting, correlation with quantitative serum b-hCG level is suggested. [employer] has confirmed the use of plasma for this test. This has not been cleared or approved by the U.S. Food and Drug Administration. The FDA has determined that such clearance is not necessary. [facility] Sedimentation Rateon 022 Sed Rate 13 mm 0 - 20 mm [facility] Troponinon 04-16-2021 Troponin, High Sensitivity <6 0 - 14 ng/L [facility] Comment on above: High Sensitivity Troponin values cannot be compared with other Troponin methodologies. Patients with high levels of Biotin oral intake (i.e >5mg/day) may have falsely decreased Troponin levels. Samples collected within 8 hours of biotin intake may require additional information for diagnosis. [facility] Urinalysis with Reflex to Cu ltureon 04-16-2021 Bilirubin Urine Negative NEGATIVE [facility] Color, UA Yellow Yellow [facility] Glucose, Ur Negative NEGATIVE [facility] Interpretation and review of laboratory results Abnormal [facility] Ketones Ql (U) Negative NEGATIVE [facility] Leukocyte esterase Test strip Ql (U) TRACE Abnormal NEGATIVE [facility] Nitrite, Urine Negative NEGATIVE [facility] pH, UA 6.0 [facility] Protein, UA Negative NEGATIVE [facility] Specific Tatums, UA 1.015 [facility] Turbidity UA Clear Clear [facility] Urine Hgb Negative NEGATIVE [facility] Urobilinogen, Urine Normal Normal [facility] XR CHEST 1 VIEWon 04-16-2021 Clear lungs. No acut e cardiopulmonary abnormality. [facility] EXAMINATION: ONE XRAY VIEW OF THE CHEST [...] normal limits. No significant thoracic osseous abnormality. [facility] Christy Becerra MD - 04/16/2021 EXAMINATION: ONE [...] IMPRESSION: Clear lungs. No acute cardiopulmonary abnormality. [employer] Phone: Radiology Study observation (narrative) [employer] Phone: XR CHEST 1 VIEWOrdered By: Steven Becerra on 04-16-2021 [employer] Phone: PULMONARY FUNCTION (450)on 0 03-07-2021 PULMONARY FUNCTION (450) [place] [address] PULMONARY FUNCTION PATIENT NAME: LEANA TRAN : 1985 MED REC NO: [id number] ROOM: ACCOUNT NO: [id number] ADMIT DATE: 03/07/2021 PROVIDER: Moris Alvarado DATE [...] 79% of predicted. MORIS ALVARADO [id number] Doc#: [id number] CC: Normal [facility] [id number] 03-07-2021 SARS-CoV-2 (COVID-19) RNA CHRISTI+probe Ql (Unsp spec) Not detected Normal [facility] Comment on above: Result Comment: Rapid NAAT: [...] management decisions. Fact sheet for Healthcare Providers: https://www.fda.gov/media/588801/download Fact sheet for Patients: https://www.fda.gov/media/798917/download Methodology: Isothermal Nucleic Acid Amplification Performed By: #### C OVRB #### [facility] [address] [place] [address] Java Analyst: Belén Dale MD Basic Metabolic Panel w/ Ref douglas to MGOrdered By: Araseli Barrett on 11-01-2020 Anion gap [Moles/Vol] 19 mmol/L High 9 - 17 mmol/L [facility] Work Phone: Calcium [Mass/Vol] 9.4 mg/dL 8.6 - 10. 4 mg/dL [employer] Work Phone: Chloride [Moles/Vol] 94 mmol/L Low 98 - 10 7 mmol/L [employer] Work Phone: CO2 [Moles/Vol] 20 mmol/L 20 - 31 mmol/L [employer] Work Phone: Creatinine [Mass/Vol] 1.2 mg/dL High 0.50 - 0.90 mg/dL [employer] Work Phone: GFR >60 >60 mL/min [employer] Work Phone: GFR Non- 51 mL/min Low >60 [employer] Phone: Glucose [Mass/Vol] 217 mg/dL High 70 - 99 mg/dL [employer] Work Phone: Interpretation and review of laboratory results Abnormal [employer] Work Phone: Potassium [Moles/Vol] 3.5 mmol/L Low 3.7 - 5.3 mmol/L [employer] Phone: Sodium [Moles/Vol] 133 mmol/L Low 135 - 144 mmol/L [facility] [employer] Phone: Urea nitrogen (BldV) [Mass/Vol] 10 mg/dL 6 - 20 mg/dL [employer] Work Phone: Urea nitrogen/Creatinine (Bld) [Mass ratio] 8 Low [employer] Work Phone: [employer] Work Phone: CBC Auto DifferentialOrdered By: Araseli Barrett on 11-01-2020 Absolute Eos # <0.03 [facility] Work Phone: Absolute Immature Granulocyte 0.33 High [employer] Work Phone: Absolute Lymph # 0.80 Low [facility] [place] Work Phone: Absolute [place] # 0.42 [employer] [facility] Work Phone: Basophils (Bld) [#/Vol] 10*3/uL [employer] Work Phone: Basophils/100 WBC (Bld) 0 % 0 - 2 % [employer] Phone: Differential Type NOT REPORTED [employer] Phone: Eosinophils/100 WBC (Bld) 0 % Low 1 - 4 % [employer] Work Phone: Hematocrit (Bld) [Volume fraction] 42.8 % 36.3 - 47.1 % [employer] Work Phone: Hemoglobin.gastroint estinal spec 1 Ql (Stl) 14.7 g/dL 11.9 - 15.1 g/dL [employer] Phone: Immature granulocytes/100 WBC (Bld) 4 % High 0 [employer] Work Phone: Interpretation and review of laboratory results Abnormal [employer] Phone: Lymphocytes/100 WBC (Bld) 9 % Low 24 - 43 % [employer] Work Phone: MCH (RBC) [Entitic mass] 30.1 pg 25.2 - 33.5 pg [employer] Phone: MCHC (RBC) [Mass/Vol] 34.3 g/dL 28.4 - 34.8 g/dL [employer] Phone: MCV (RBC) [Entitic vol] 87.5 fL 82.6 - 102.9 fL [employer] Phone: Monocytes/100 WBC (Bld) 5 % 3 - 12 % [employer] Work Phone: NRBC Automated 0.0 0.0 per 100 WBC [employer] Phone: Platelet distribution width (Bld) [Ratio] 11.4 % Low 11.8 - 14.4 % [employer] Phone: Platelet Estimate NOT REPORTED [employer] Phone: Platelet mean volume (Bld) [Entitic vol] 9.4 fL 8.1 - 13.5 fL [employer] Phone: Platelets (Bld) [#/Vol] 207 10*3/uL [employer] Phone: RBC (Bld) [#/Vol] 4.89 10*6/uL 3.95 - 5.11 m/uL [employer] Phone: RBC (Bld) [#/Vol] NOT REPORTED [employer] Phone: Segmented neutrophils/100 WBC (Bld) 82 % High 36 - 65 % [employer] Phone: Segs Absolute 7.82 [email or web address] Work Phone: WBC (Bld) [#/Vol] 9.4 10*3/uL [employer] Phone: WBC (Bld) [#/Vol] NOT REPORTED [employer] Phone: [employer] Phone: D-Dimer, QuantitativeOrdered By: Araseli Barrett on 11-01-2020 D-Dimer, Quant <0.27 [employer] Work Phone: Comment on above: When combined with [...] more prevalent in patients with distal DVT. [employer] Phone: Laboratory - Chemistry and C hemistry - challengeOrdered By: Araseli Barrett on 11-01-2020 GFR/1.73 sq M.predicted MDRD (S/P/Bld) [Vol rate/Area] [employer] Phone: Comment on above: Average GFR for 30-3 9 years old: 107 mL/min/1.73sq m Chronic Kidney Disease: <60 mL/min/1.73sq m Kidney failure: <15 mL/min/1.73sq m eGFR calculated using average adult body mass. Additional eGFR calculator available at: http://www.[employer]/multiple_crcl_2012.htm Stage 1: Some kidney damage normal GFR Stage 2: Mild kidney damage GFR 60-89 Stage 3: Moderate kidney damage GFR 30-59 Stage 4: Severe kidney damage GFR 15-29 Stage 5: Severe kidney damage GFR <15 ESRD - chronic treatment by dialysis or transplant MagnesiumOrdered By: Araseli Barrett on 11-01-2020 Magnesium [Mass/Vol] 1.6 mg/dL 1.6 - 2 .6 mg/dL [employer] Phone: [employer] Phone: TroponinOrdered By: Araseli Barrett on 11-01-2020 Troponin Interp NOT REPORTED [employer] [facility] Work Phone: Troponin T NOT REPORTED <0.03 ng/mL [employer] Phone: Troponin, High Sensitivity <6 0 - 14 ng/L [employer] Phone: Comment on above: High Sensitivity Troponin values cannot be compared with other Troponin methodologies. Patients with high levels of Biotin oral intake (i.e >5mg/day) may have falsely decreased Troponin levels. Samples collected within 8 hours of biotin intake may require additional information for diagnosis. [employer] Phone: XR CHEST PORTABLEOrdered By: Araseli Barrett on 11-01-2020 Negative chest. [employer] [facility] Work Phone: EXAMINATION: ONE XRA Y VIEW OF THE CHEST 11/01/2020 2:31 pm COMPARISON: 12/08/2014 HISTORY: ORDERING SYSTEM PROVIDED HISTORY: cough FINDINGS: The lungs are without acute focal process. No effusion or pneumothorax. The cardiomediastinal silhouette is normal. The osseous structures are intact without acute process. [employer] Phone: Oswaldo, Mhpn Incoming R adiant Results From [employer] - 11/01/2020 2:41 PM EDT EXAMINATION: ONE XRAY VIEW OF THE CHEST 11/01/2020 2:31 pm COMPARISON: 12/08/2014 HISTORY: ORDERING SYSTEM PROVIDED HISTORY: cough FINDINGS: The lungs are without acute focal process. No effusion or pneumothorax. The cardiomediastinal silhouette is normal. The osseous structures are intact without acute process. IMPRESSION: Negative chest. [employer] Phone: [employer] Phone: [facility] 09-15-2020 [facility] Telephone ([facility]) LEANA TRAN ([id number]) 1985 F Date Time Provider Department 09/15/20 LIS MORAES During your visit today, we recorded the following information about you: Demi Hazel Pss 09/15/2020 4:44 PM Signed Received MRI Brain report by fax from [facility]. Scanned to patient's chart. Savanna Juarez RN [...] Encounter Status:Closed by DEMI JOHNSON [facility]17/20 [facility] ([facility] ) LEANA TRAN ([id number]) 1985 F Date Time Provider Department 09/06/20 2:00 PM LIS MORAES During your visit today, we recorded the following information about you: Temperature Pulse Blood pressure Weight 97.8 degrees 67/minute 112/73 102.1 kg Height 1.626 m Lis Moraes MD 09/06/2020 3:10 PM Signed PROGRESS NOTE- HEADACHE SERVICE DATE: September 06, 2020 [facility] Participants: patient and provider Requesting [...] in frequency but most importantly in severity, 3/10. It was like that for several years. [...] Contrast [Con (more content not included)... Normal Vital Signs Date Time Vital Sign Value Performing Clinician Facility 10-02-2022 09:29-0400 Body height 162.6 cm Fuentes Amaral MD Work Phone: [facility] 10-02-2022 09:29-0400 Body temperature 97.7 [degF] Fuentes Amaral MD Work Phone: [facility] 10-02-2022 09:29-0400 Body weight 100.15 kg Fuentes Amaral MD Work Phone: [facility] 10-02-2022 09:29-0400 Diastolic blood pressure 79 mm[Hg] Fuentes Amaral MD Work Phone: [facility] 10-02-2022 09:29-0400 Heart rate 58 /min Fuentes Amaral MD Work Phone: [facility] 10-02-2022 09:29-0400 Respiratory rate 16 /min Fuentes Amaral MD Work Phone: [facility] 10-02-2022 09:29-0400 SaO2% (BldA) [Mass fraction] 99 % Fuentes Amaral MD Work Phone: [facility] 10-02-2022 09:29-0400 Systolic blood pressure 140 mm[Hg] Fuentes Amaral MD Work Phone: [facility] 09-05-2022 08:23-0400 Blood Pressure Location LORAINE RUBALCAVA [facility] 09-05-2022 08:23-0400 Diastolic blood pressure 79 mm[Hg] LORAINE TEJ [facility] 09-05-2022 08:23-0400 Heart rate 60 /min LORAINE TEJ [facility] 09-05-2022 08:23-0400 Systolic blood pressure 133 mm[Hg] LORAINE TEJ [facility] 04-03-2022 10:39-0500 Body height 162.6 cm Fuentes Amaral MD Work Phone: [facility] 04-03-2022 10:39-0500 Body temperature 97.9 [degF] Fuentes Amaral MD Work Phone: [facility] 04-03-2022 10:39-0500 Body weight 99.34 kg Fuentes Amaral MD Work Phone: [facility] 04-03-2022 10:39-0500 Diastolic blood pressure 65 mm[Hg] Fuentes Amaral MD Work Phone: [facility] 04-03-2022 10:39-0500 Heart rate 74 /min Fuentes Amaral MD Work Phone: [facility] 04-03-2022 10:39-0500 Respiratory rate 16 /min Fuentes Amaral MD Work Phone: [facility] 04-03-2022 10:39-0500 SaO2% (BldA) [Mass fraction] 98 % Fuentes Amaral MD Work Phone: [facility] 04-03-2022 10:39-0500 Systolic blood pressure 147 mm[Hg] Fuentes Amaral MD Work Phone: [facility] 02-28-2022 08:30-0500 Blood Pressure Location LORAINE RUBALCAVA [facility] 02-28-2022 08:30-0500 Diastolic blood pressure 83 mm[Hg] LORAINE RUBALCAVA [facility] 02-28-2022 08:30-0500 Heart rate 74 /min LORAINE TEJ [facility] 02-28-2022 08:30-0500 Respiratory rate 16 /min LORAINE TEJ [facility] 02-28-2022 08:30-0500 Systolic blood pressure 121 mm[Hg] LORAINE TEJ [facility] 02-10-2022 14:07-0500 Body height 162.6 cm Fuentes Amaral MD Work Phone: [facility] 02-10-2022 14:07-0500 Body temperature 97.9 [degF] Fuentes Amaral MD Work Phone: [facility] 02-10-2022 14:07-0500 Body weight 98.25 kg Fuentes Amaral MD Work Phone: [facility] 02-10-2022 14:07-0500 Diastolic blood pressure 59 mm[Hg] Fuentes Amaral MD Work Phone: [facility] 02-10-2022 14:07-0500 Heart rate 97 /min Fuentes Amaral MD Work Phone: [facility] 02-10-2022 14:07-0500 Respiratory rate 16 /min Fuentes Amaral MD Work Phone: [facility] 02-10-2022 14:07-0500 SaO2% (BldA) [Mass fraction] 99 % Fuentes Amaral MD Work Phone: [facility] 02-10-2022 14:07-0500 Systolic blood pressure 124 mm[Hg] Fuentes Amaral MD Work Phone: [facility] 2021 08:48-0500 Blood Pressure Location LORAINE RUBALCAVA [facility] 2021 08:48-0500 Diastolic blood pressure 77 mm[Hg] LORAINE RUBALCAVA [facility] 2021 08:48-0500 Heart rate 81 /min LORAINE RUBALCAVA [facility] 2021 08:48-0500 Systolic blood pressure 118 mm[Hg] LORAINE RUBALCAVA [facility] 11-18-2021 13:44-0400 Body height 162.6 cm Fuentes Amaral MD Work Phone: [facility] 11-18-2021 13:44-0400 Body temperature 97.81 [degF] Fuentes Amaral MD Work Phone: [facility] 11-18-2021 13:44-0400 Body weight 101.24 kg Fuentes Amaral MD Work Phone: [facility] 11-18-2021 13:44-0400 Diastolic blood pressure 73 mm[Hg] Fuentes Amaral MD Work Phone: [facility] 11-18-2021 13:44-0400 Heart rate 66 /min Fuentes Amaral MD Work Phone: [facility] 11-18-2021 13:44-0400 Respiratory rate 16 /min Fuentes Amaral MD Work Phone: [facility] 11-18-2021 13:44-0400 SaO2% (BldA) [Mass fraction] 100 % Fuentes Amaral MD Work Phone: [facility] 11-18-2021 13:44-0400 Systolic blood pressure 121 mm[Hg] Fuentes Amaral MD Work Phone: [facility] 11-03-2021 10:37-0400 Body height 162.6 cm Fuentes Amaral MD Work Phone: [facility] 11-03-2021 10:37-0400 Body temperature 97.59 [degF] Fuentes Amaral MD Work Phone: [facility] 11-03-2021 10:37-0400 Body weight 99.97 kg Fuentes Amaral MD Work Phone: [facility] 11-03-2021 10:37-0400 Diastolic blood pressure 63 mm[Hg] Fuentes Amaral MD Work Phone: [facility] 11-03-2021 10:37-0400 Heart rate 59 /min Fuentes Amaral MD Work Phone: [facility] 11-03-2021 10:37-0400 Respiratory rate 16 /min Fuentes Amaral MD Work Phone: [facility] 11-03-2021 10:37-0400 SaO2% (BldA) [Mass fraction] 99 % Fuentes Amaral MD Work Phone: [facility] 11-03-2021 10:37-0400 Systolic blood pressure 120 mm[Hg] Fuentes Amaral MD Work Phone: [facility] 09-27-2021 08:00-0400 Body height 162.6 cm Pulm [place] Work Phone: [facility] 09-27-2021 08:00-0400 Body weight 99.79 kg Pulm [place] Work Phone: [facility] 09-21-2021 15:37-0400 Body height 160 cm Ruth Villaseñor MD Work Phone: [facility] 09-21-2021 15:37-0400 Body temperature 97.5 [degF] Ruth Villaseñor MD Work Phone: [facility] 09-21-2021 15:37-0400 Body weight 100.61 kg Ruth Villaseñor MD Work Phone: [facility] 09-21-2021 15:37-0400 Diastolic blood pressure 72 mm[Hg] Ruth Villaseñor MD Work Phone: [facility] 09-21-2021 15:37-0400 Heart rate 72 /min Ruth Villaseñor MD Work Phone: [facility] 09-21-2021 15:37-0400 SaO2% (BldA) [Mass fraction] 97 % Ruth Villaseñor MD Work Phone: [facility] 09-21-2021 15:37-0400 Systolic blood pressure 131 mm[Hg] Ruth Villaseñor MD Work Phone: [facility] 09-19-2021 13:59-0400 Body temperature 98.29 [degF] Landen Timoteo ENGAGEMENT LEAD.LANDCARE FACILITATOR Work Phone: [facility] 09-19-2021 13:59-0400 Body weight 99.79 kg Landen Clark ENGAGEMENT LEAD.LANDCARE FACILITATOR Work Phone: [facility] 09-19-2021 13:59-0400 Diastolic blood pressure 53 mm[Hg] Landen Timoteo ENGAGEMENT LEAD.LANDCARE FACILITATOR Work Phone: [facility] 09-19-2021 13:59-0400 Heart rate 70 /min Landen Timoteo ENGAGEMENT LEAD.LANDCARE FACILITATOR Work Phone: [facility] 09-19-2021 13:59-0400 Respiratory rate 18 /min Landen Timoteo ENGAGEMENT LEAD.LANDCARE FACILITATOR Work Phone: [facility] 09-19-2021 13:59-0400 SaO2% (BldA) [Mass fraction] 98 % Landen Timoteo ENGAGEMENT LEAD.LANDCARE FACILITATOR Work Phone: [facility] 09-19-2021 13:59-0400 Systolic blood pressure 128 mm[Hg] Landen Timoteo ENGAGEMENT LEAD.LANDCARE FACILITATOR Work Phone: [facility] 09-05-2021 15:55-0400 Diastolic blood pressure 50 mm[Hg] Christine Abraham DO Work Phone: [facility] [employer] 09-05-2021 15:55-0400 Heart rate 103 /min Christine Perezbal DO Work Phone: [facility] [employer] 09-05-2021 15:55-0400 Respiratory rate 28 /min Christine Abraham DO Work Phone: [employer] 09-05-2021 15:55-0400 SaO2% (BldA) [Mass fraction] 96 % Christine Abraham DO Work Phone: [facility] [employer] 09-05-2021 15:55-0400 Systolic blood pressure 115 mm[Hg] Christine Abraham DO Work Phone: [facility] [employer] 09-05-2021 13:29-0400 Body height 162.6 cm Christine Abraham DO Work Phone: [facility] [employer] 09-05-2021 13:29-0400 Body mass index (BMI) [Ratio] 37.25 kg/m2 Christine Abraham DO Work Phone: [facility] [employer] 09-05-2021 13:29-0400 Body temperature 98.2 [degF] Christine Perezbal DO Work Phone: [facility] [employer] 09-05-2021 13:29-0400 Body weight 98.43 kg Christine Abraham DO Work Phone: [facility] [employer] 08-15-2021 08:54-0400 Body height 162.6 cm Berlin Avila III, MD Work Phone: [facility] 08-15-2021 08:54-0400 Body weight 98.84 kg Berlin Avila III, MD Work Phone: [facility] 08-12-2021 10:00-0400 Body height 162.6 cm Hydraulic Rubbish Compactor Mechanic Work Phone: [facility] 08-12-2021 10:00-0400 Body weight 98 kg Hydraulic Rubbish Compactor Mechanic Work Phone: [facility] 08-12-2021 10:00-0400 Diastolic blood pressure 72 mm[Hg] Hydraulic Rubbish Compactor Mechanic Work Phone: [facility] 08-12-2021 10:00-0400 Heart rate 79 /min Hydraulic [employer] Compactor Mechanic Work Phone: [facility] 08-12-2021 10:00-0400 Systolic blood pressure 108 mm[Hg] Hydraulic Rubbish Compactor Mechanic Work Phone: [facility] 07-25-2021 09:30-0400 Body height 162.6 cm Cindy Rushing MD Work Phone: [facility] 07-25-2021 09:30-0400 Body temperature 97.2 [degF] Cindy Rushing MD Work Phone: [facility] 07-25-2021 09:30-0400 Body weight 97.48 kg Cindy Rushing MD Work Phone: [facility] 07-25-2021 09:30-0400 Diastolic blood pressure 62 mm[Hg] Cindy Rushing MD Work Phone: [facility] 07-25-2021 09:30-0400 Heart rate 83 /min Cindy Rushing MD Work Phone: [facility] 07-25-2021 09:30-0400 Respiratory rate 14 /min Cindy Rushing MD Work Phone: [facility] 07-25-2021 09:30-0400 SaO2% (BldA) [Mass fraction] 99 % Cindy Rushing MD Work Phone: [facility] 07-25-2021 09:30-0400 Systolic blood pressure 104 mm[Hg] Cindy Rushing MD Work Phone: [facility] 07-22-2021 14:12-0400 Body height 162.6 cm Yan Bass MD Work Phone: [facility] 07-22-2021 14:12-0400 Body temperature 97.5 [degF] Yan Bass MD Work Phone: [facility] 07-22-2021 14:12-0400 Body weight 97.98 kg Yan Bass MD Work Phone: [facility] 07-22-2021 14:12-0400 Diastolic blood pressure 79 mm[Hg] Yan Bass MD Work Phone: [facility] 07-22-2021 14:12-0400 Heart rate 71 /min Yan Bass MD Work Phone: [facility] 07-22-2021 14:12-0400 Respiratory rate 16 /min Yan Bass MD Work Phone: [facility] 07-22-2021 14:12-0400 SaO2% (BldA) [Mass fraction] 97 % Yan Bass MD Work Phone: [facility] 07-22-2021 14:12-0400 Systolic blood pressure 129 mm[Hg] Yan Bass MD Work Phone: [facility] 07-21-2021 13:36-0400 Respiratory rate 20 /min Sai Perez MD Work Phone: [facility] 07-21-2021 13:36-0400 SaO2% (BldA) [Mass fraction] 100 % aSi Perez MD Work Phone: [facility] 07-21-2021 13:29-0400 Diastolic blood pressure 67 mm[Hg] Sai Perez MD Work Phone: [facility] 07-21-2021 13:29-0400 Heart rate 62 /min Sai Perez MD Work Phone: [facility] 07-21-2021 13:29-0400 Systolic blood pressure 130 mm[Hg] Sai Perez MD Work Phone: [facility] 07-14-2021 10:40-0400 Diastolic blood pressure 75 mm[Hg] Aldo Ann MD Work Phone: [facility] 07-14-2021 10:40-0400 Heart rate 74 /min Aldo Ann MD Work Phone: [facility] 07-14-2021 10:40-0400 SaO2% (BldA) [Mass fraction] 98 % Aldo Ann MD Work Phone: [facility] 07-14-2021 10:40-0400 Systolic blood pressure 128 mm[Hg] Aldo Ann MD Work Phone: [facility] 07-06-2021 12:39-0400 Body height 162.6 cm Tracee Mcintyre MD Work Phone: [facility] 07-06-2021 12:39-0400 Body weight 97.52 kg Tracee Mcintyre MD Work Phone: [facility] 07-06-2021 12:39-0400 Diastolic blood pressure 68 mm[Hg] Tracee Mcintyre MD Work Phone: [facility] 07-06-2021 12:39-0400 Heart rate 61 /min Tracee Mcintyre MD Work Phone: [facility] 07-06-2021 12:39-0400 Respiratory rate 16 /min Tracee Mcintyre MD Work Phone: [facility] 07-06-2021 12:39-0400 SaO2% (BldA) [Mass fraction] 99 % Tracee Mcintyre MD Work Phone: [facility] 07-06-2021 12:39-0400 Systolic blood pressure 111 mm[Hg] Tracee Mcintyre MD Work Phone: [facility] 07-01-2021 10:02-0400 Body height 162.6 cm Yan Bass MD Work Phone: [facility] 07-01-2021 10:02-0400 Body temperature 97.59 [degF] Yan Bass MD Work Phone: [facility] 07-01-2021 10:02-0400 Body weight 97.98 kg Yan Bass MD Work Phone: [facility] 07-01-2021 10:02-0400 Diastolic blood pressure 97 mm[Hg] Yan Bass MD Work Phone: [facility] 07-01-2021 10:02-0400 Heart rate 87 /min Yan Bass MD Work Phone: [facility] 07-01-2021 10:02-0400 Respiratory rate 16 /min Yan Bass MD Work Phone: [facility] 07-01-2021 10:02-0400 SaO2% (BldA) [Mass fraction] 99 % Yan Bass MD Work Phone: [facility] 07-01-2021 10:02-0400 Systolic blood pressure 138 mm[Hg] Yan Bass MD Work Phone: [facility] 06-27-2021 11:45-0400 Diastolic blood pressure 70 mm[Hg] Peter Knight APRN.LANDCARE FACILITATOR Work Phone: [facility] 06-27-2021 11:45-0400 Heart rate 96 /min Peter Antonia ENGAGEMENT LEAD.LANDCARE FACILITATOR Work Phone: [facility] 06-27-2021 11:45-0400 Respiratory rate 20 /min Peter Antonia ENGAGEMENT LEAD.LANDCARE FACILITATOR Work Phone: [facility] 06-27-2021 11:45-0400 SaO2% (BldA) [Mass fraction] 99 % Peter Knight ENGAGEMENT LEAD.LANDCARE FACILITATOR Work Phone: [facility] 06-27-2021 11:45-0400 Systolic blood pressure 147 mm[Hg] Peter Knight ENGAGEMENT LEAD.LANDCARE FACILITATOR Work Phone: [facility] 06-27-2021 11:30-0400 Body temperature 98.1 [degF] Peter Antonia ENGAGEMENT LEAD.LANDCARE FACILITATOR Work Phone: [facility] 06-27-2021 10:53-0400 Body height 162.6 cm Peter Márquezdelmi ENGAGEMENT LEAD.LANDCARE FACILITATOR Work Phone: [facility] 06-27-2021 10:53-0400 Body weight 95.71 kg Peter Knight ENGAGEMENT LEAD.LANDCARE FACILITATOR Work Phone: [facility] 06-21-2021 01:00-0400 Diastolic blood pressure 84 mm[Hg] Sean Andes DO Work Phone: [facility] 06-21-2021 01:00-0400 Heart rate 87 /min Sean Andes DO Work Phone: [facility] 06-21-2021 01:00-0400 Respiratory rate 21 /min Sean Andes DO Work Phone: [facility] 06-21-2021 01:00-0400 SaO2% (BldA) [Mass fraction] 90 % Sean Andes DO Work Phone: [facility] 06-21-2021 01:00-0400 Systolic blood pressure 121 mm[Hg] Sean Andes DO Work Phone: [facility] 06-21-2021 00:04-0400 Body temperature 98.6 [degF] Sean Andes DO Work Phone: [facility] 06-14-2021 09:07-0400 Body height 162.6 cm Jackelyn Marques MD Work Phone: [facility] 06-14-2021 09:07-0400 Body weight 96.66 kg Jackelyn Marques MD Work Phone: [facility] 06-14-2021 09:07-0400 Diastolic blood pressure 80 mm[Hg] Jackelyn Marques MD Work Phone: [facility] 06-14-2021 09:07-0400 Heart rate 71 /min Jackelyn Marques MD Work Phone: [facility] 06-14-2021 09:07-0400 Systolic blood pressure 126 mm[Hg] Jackelyn Marques MD Work Phone: [facility] 06-10-2021 09:45-0400 Body height 162.6 cm Yan Bass MD Work Phone: [facility] 06-10-2021 09:45-0400 Body temperature 97.39 [degF] Yan Bass MD Work Phone: [facility] 06-10-2021 09:45-0400 Body weight 97.61 kg Yan Bass MD Work Phone: [facility] 06-10-2021 09:45-0400 Diastolic blood pressure 50 mm[Hg] Yan Bass MD Work Phone: [facility] 06-10-2021 09:45-0400 Heart rate 64 /min Yan Bass MD Work Phone: [facility] 06-10-2021 09:45-0400 Respiratory rate 16 /min Yan Bass MD Work Phone: [facility] 06-10-2021 09:45-0400 SaO2% (BldA) [Mass fraction] 100 % Yan Bass MD Work Phone: [facility] 06-10-2021 09:45-0400 Systolic blood pressure 124 mm[Hg] Yan Bass MD Work Phone: [facility] 06-04-2021 19:43-0400 Diastolic blood pressure 49 mm[Hg] Brian Santana MD Work Phone: [facility] 06-04-2021 19:43-0400 Heart rate 69 /min Brian Santana MD Work Phone: [facility] 06-04-2021 19:43-0400 Respiratory rate 23 /min Brian Santana MD Work Phone: [facility] 06-04-2021 19:43-0400 SaO2% (BldA) [Mass fraction] 92 % Brian Santana MD Work Phone: [facility] 06-04-2021 19:43-0400 Systolic blood pressure 106 mm[Hg] Brian Santana MD Work Phone: [employer] 06-04-2021 16:26-0400 Body mass index (BMI) [Ratio] 36.22 kg/m2 Brian Santana MD Work Phone: [employer] 06-04-2021 16:26-0400 Body temperature 98.4 [degF] Brian Santana MD Work Phone: [employer] 06-04-2021 16:26-0400 Body weight 95.71 kg Brian Santana MD Work Phone: [employer] 05-20-2021 18:43-0400 Diastolic blood pressure 51 mm[Hg] Cas Dowell MD Work Phone: [employer] 05-20-2021 18:43-0400 Heart rate 53 /min Cas Dowell MD Work Phone: [employer] 05-20-2021 18:43-0400 Respiratory rate 16 /min Cas Dowell MD Work Phone: [employer] 05-20-2021 18:43-0400 SaO2% (BldA) [Mass fraction] 96 % Cas Dowell MD Work Phone: [facility] 05-20-2021 18:43-0400 Systolic blood pressure 112 mm[Hg] Cas Dowell MD Work Phone: [facility] 05-20-2021 12:55-0400 Body height 162.6 cm Cas Dowell MD Work Phone: [employer] 05-20-2021 12:55-0400 Body mass index (BMI) [Ratio] 36.22 kg/m2 Cas Dowell MD Work Phone: [employer] 05-20-2021 12:55-0400 Body weight 95.71 kg Cas Dowell MD Work Phone: [employer] 04-16-2021 19:39-0500 Body temperature 97.39 [degF] Mike Stevenson MD [employer] 04-16-2021 19:39-0500 Diastolic blood pressure 89 mm[Hg] Mike Stevenson MD [employer] 04-16-2021 19:39-0500 Heart rate 55 /min Mike Stevenson MD [employer] 04-16-2021 19:39-0500 Respiratory rate 15 /min Mike Stevenson MD [employer] 04-16-2021 19:39-0500 SaO2% (BldA) [Mass fraction] 98 % Mike Stevenson MD [employer] 04-16-2021 19:39-0500 Systolic blood pressure 131 mm[Hg] Mike Stevenson MD [employer] 11-01-2020 17:24-0400 SaO2% (BldA) [Mass fraction] 94 % Araseli Barrett MD Work Phone: [employer] Work Phone: 11-01-2020 16:20-0400 Diastolic blood pressure 73 mm[Hg] Araseli Barrett MD Work Phone: [employer] Work Phone: 11-01-2020 16:20-0400 Systolic blood pressure 142 mm[Hg] Araseli Barrett MD Work Phone: [employer] Work Phone: 11-01-2020 15:48-0400 Body temperature 101.61 [degF] Araseli Barrett MD Work Phone: [employer] Work Phone: 11-01-2020 13:32-0400 Body mass index (BMI) [Ratio] 37.76 kg/m2 Araseli Barrett MD Work Phone: [employer] Work Phone: 11-01-2020 13:32-0400 Body weight 99.79 kg Araseli Barrett MD Work Phone: [employer] Work Phone: 11-01-2020 13:32-0400 Heart rate 91 /min Araseli Barrett MD Work Phone: [employer] Work Phone: 11-01-2020 13:32-0400 Respiratory rate 22 /min Araseli Barrett MD Work Phone: [employer] Work Phone: 06-13-2020 05:10-0400 Diastolic blood pressure 73 mm[Hg] Kody Cm MD Work Phone: [employer] Work Phone: 06-13-2020 05:10-0400 Systolic blood pressure 131 mm[Hg] Kody Cm MD Work Phone: [employer] Work Phone: 06-13-2020 05:09-0400 Body temperature 96.8 [degF] Kody Cm MD Work Phone: [employer] Work Phone: 06-13-2020 05:09-0400 Heart rate 74 /min Kody Cm MD Work Phone: [employer] Work Phone: 06-13-2020 05:09-0400 Respiratory rate 12 /min Kody mC MD Work Phone: [employer] Work Phone: 06-13-2020 05:09-0400 SaO2% (BldA) [Mass fraction] 97 % Kody Cm MD Work Phone: [employer] Work Phone: Encounters Encounter Date Encounter Type Care Provider Facility Start: 04-09-2023 End: 04-09-2023 ambulatory CAS DOWELL Not Available Start: 03-28-2023 End: 03-29-2023 ambulatory Phillip Thomas MD Facility:[facility] Start: 03-12-2023 Orders Only Cas Horner Work Phone: [facility] Comment on above: Moderate persistent asthma without complication (CMS/HCC) (Primary Dx) Start: 02-13-2023 End: 02-14-2023 ambulatory Tesfaye R NILL Facility:[facility] Start: 02-04-2023 Julia BUSTOS RN-LANDCARE FACILITATOR Work Phone: [facility] Start: 01-31-2023 End: 02-01-2023 ambulatory Tesfaye R FLAQUITOL Facility:[id number] Start: 01-24-2023 End: 01-25-2023 ambulatory Phillip Thomas MD Facility[facility] Start: 01-16-2023 End: 01-16-2023 ambulatory CAS DOWELL Not Available Start: 01-10-[address] [facility] Start: 01-04-2023 End: 01-05-2023 ambulatory CAS DOWELL Facility:[facility] Start: 01-01-2023 End: 01-01-[address] [facility] Start: 12-19-2022 ambulatory Tesfaye MASON Facility:[facility] Start: 12-18-2022 End: 12-18-2022 Emergency department patient visit CAS BOLTONSuzy [facility] Start: 12-18-2022 ambulatory Tesfaye MASON Facility:[facility] Start: 11-29-2022 End: 11-30-2022 ambulatory Phillip Thomas MD Facility:[facility] Start: 11-14-2022 End: 11-14-2022 ambulatory MACRINA WADSWORTH [facility] Start: 10-18-2022 End: 10-19-2022 ambulatory Phillip Thomas MD Facility:[facility] Start: 10-02-2022 End: 10-02-2022 ambulatory CAS DOWELL Facility:[facility] Start: 10-02-2022 End: 10-02-2022 Office outpatient visit 15 minutes Fuentes Amaral MD Work Phone: Hematology/Oncology Comment on above: 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HCC) (Primary Dx); Bleeding disorder (HCC); Coagulopathy (HCC) Start: 09-05-2022 End: 09-06-2022 ambulatory LORAINE RUBALCAVA Facility:[facility] Start: 09-05-2022 End: 09-05-2022 Patient encounter procedure [facility]CA[facility] Start: 09-04-2022 ambulatory Tesfaye MASON Facility:[facility] Start: 07-21-[address] [facility] Start: 07-04-2022 End: 07-04-2022 ambulatory ANGELIKA CROONEL [facility] Start: 06-27-2022 End: 06-27-2022 ambulatory STEPHON CRONIN [facility] Start: 06-26-2022 End: 06-27-2022 ambulatory Phillip Thomas MD Facility[facility] Start: 06-15-2022 End: 06-16-[address] CAS DOWELL Facility: Start: 06-05-2022 End: 06-06-[address] DOCTOR CONN Facility:[facility] Start: 05-24-[address] [facility] Start: 05-03-2022 Telephone encounter Meena peter MD Work Phone: Neurology Comment on above: PAP Therapy Follow U p (DOWNLOAD) Start: 04-27-2022 End: 04-27-2022 ambulatory CAS DOWELL Facility:[facility] Start: 04-26-2022 End: 04-26-2022 ambulatory Bhargavi Saldana PA-C Work Phone: Neurology Comment on above: Migraine without aur a and without status migrainosus, not intractable (Primary Dx) Start: 04-26-2022 End: 04-26-2022 Telemedicine consultation with patient Bhargavi Saldana PA-C Work Phone: [facility] Start: 04-17-2022 End: 04-18-2022 [facility] Fuentes Amaral MD Work Phone: Hematology/Oncology Comment on above: 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HCC) (Primary Dx) Start: 04-10-2022 End: 04-10-2022 ambulatory MEENA GRISSOM Facility:[facility] Start: 04-03-2022 Telephone encounter Meena peter MD Work Phone: Neurology Comment on above: PAP Therapy Follow U p (NOT COMPLIANT NEEDS SD CHIP SENT TO DME ) Start: 04-03-2022 End: 04-03-2022 ambulatory CAS DOWELL Facility:[facility] Start: 04-03-2022 End: 04-03-2022 Office outpatient visit 15 minutes Fuentes Amaral MD Work Phone: Hematology/Oncology Comment on above: 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HCC) (Primary Dx); Bleeding disorder (HCC) Start: 03-29-2022 End: 03-30-2022 ambulatory FUENTES AMARAL [facility] Start: 03-21-2022 Telephone encounter Yancy Cook RN Hematology/Oncology Comment on above: Orders; Appointment Start: 03-16-2022 End: 03-17-2022 ambulatory FUENTES MUNIR [facility] Start: 02-28-2022 End: 03-01-2022 ambulatory LORAINE RUBALCAVA Facility:[facility] Start: 02-28-2022 End: 02-28-2022 Patient encounter procedure LORAINE RUBALCAVA [facility] Start: 02-27-2022 Patient Update Tesfaye Whitman [facility] Home Delivery Comment on above: Patient Update (Medi cation Refill Consent) Start: 02-24-2022 Telephone encounter Bhargavi donaldson PA-C Work Phone: Neurology Comment on above: Referral Request (PA for Ajovy) Start: 02-22-2022 ambulatory Fuentes almonte MD Work Phone: Hematology/Oncology Comment on above: Platelet electrophor esis lab Start: 02-17-2022 Telephone encounter Yancy Cook RN Hematology/Oncology Comment on above: Orders; Question Start: 02-17-2022 End: 02-18-2022 ambulatory [facility]OWELL [facility] Start: 02-17-2022 End: 02-17-2022 Subsequent hospital visit by physician Cas Dowell MD Work Phone: [facility] Start: 02-16-2022 Telephone encounter Yancy Cook RN Hematology/Oncology Comment on above: Orders Start: 02-15-2022 End: 03-15-2022 ambulatory SHAIKH Janet JACOBSON Facility: Start: 02-13-2022 End: 02-14-2022 ambulatory CAS DOWELL Facility:[facility] Start: 02-13-2022 End: 02-13-2022 Patient encounter procedure Meena Grissom MD Work Phone: Neurology Comment on above: No-show for appointm ent (Primary Dx) Start: 02-13-2022 End: 02-13-2022 Telemedicine consultation with patient Meena Grissom MD Work Phone: [facility] Start: 02-10-2022 End: 02-10-2022 Visit (SP) Office Fuentes Aamral MD Work Phone: Hematology/Oncology Comment on above: 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HCC) (Primary Dx); Bleeding disorder (HCC) Start: 02-01-2022 Telephone encounter [facility] Work Phone: Neurology Comment on above: Appointment (Downloa d Pap Therapy Follow Up-) Start: 01-30-2022 End: 01-30-2022 Emergency department patient visit CAS DOWELL [facility] Start: 01-23-2022 End: 01-23-2022 Patient encounter procedure Marcell GREEN [facility] Start: 01-16-2022 End: 01-16-2022 ambulatory Bhargavi Saldana PA-C Work Phone: Neurology Comment on above: Migraine without aur a and without status migrainosus, not intractable (Primary Dx) Start: 01-16-2022 End: 01-16-2022 Telemedicine consultation with patient Bhargavi Saldana PA-C Work Phone: [facility] Start: 01-08-2022 End: 01-11-2022 Evaluation and management of inpatient CHAYO MARTINS [facility] Start: 01-07-2022 End: 01-07-2022 Emergency department patient visit CAS DOWELL [facility] Start: 01-01-2022 End: 01-02-2022 ambulatory CAS DOWELL Facility:[facility] Start: 12-24-2021 End: 12-25-[address] BELÉN ANDRADE Facility:[facility] Start: 2021 End: 2021 Patient encounter procedure LORAINE RUBALCAVA [facility] Start: 12-20-2021 Telephone encounter Juan Ramon olvera [facility] Work Phone: [facility] Comment on above: Results Start: 12-17-2021 Encounter for genera l adult medical examination without abnormal findings DR CAS DOWELL [facility] Start: 12-15-2021 Chart abstracting [facility] Work Phone: Neurology Start: 12-15-2021 End: 12-17-2021 ambulatory CAS DOWELL Facility:[facility] Start: 12-12-2021 End: 12-13-[address] CAS DOWELL Facility:[facility] Start: 12-12-2021 End: 12-13-2021 Encounter for general adult medical examination without abnormal findings DR CAS DOWELL Facility:[facility] Start: 12-06-2021 Orders Only Jaja shabazz PA-C Work Phone: Pulmonary Medicine Comment on above: Moderate persistent asthma without complication (Primary Dx); SOB (shortness of breath); Post-acute sequelae of COVID-19 (PASC) Start: 12-02-2021 End: 12-02-2021 ambulatory CAS DOWELL Facility:[facility] Start: 12-02-2021 End: 12-02-2021 Patient encounter procedure Syncope Opd Nurse Work Phone: Cardiology Comment on above: Palpitations (Primar y Dx); Orthostatic intolerance; Symptomatic bradycardia Start: 12-01-2021 Telephone encounter Micheal connell MD Work Phone: Cardiology Comment on above: Patient Update Start: 11-25-2021 ambulatory Farzaneh Steward RN Cardio logy Comment on above: TILT TABLE TEST INST RUCTIONS - READ CAREFULLY Start: 11-25-2021 E-mail encounter fro m caregiver Farzaneh Steward RN [facility] Start: 11-18-2021 End: 11-18-2021 ambulatory CAS Guzman GRAYSON Facility:[facility] Start: 11-18-2021 End: 11-18-2021 Visit (SP) Office Fuentes Amaral MD Work Phone: Hematology/Oncology Comment on above: Breast screening (Pr imary Dx); 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HCC) Start: 11-16-2021 End: 11-16-2021 Telephone encounter Meena Grissom MD Work Phone: Neurology Comment on above: Kiln Placer - O ther (Download) KATELIN on CPAP (Primary Dx); RLS (restless legs syndrome); Shift work sleep disorder; Sleep paralysis; 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; History of posttraumatic stress disorder (PTSD); Poor sleep pattern; Poor compliance with CPAP treatment Start: 11-16-2021 End: 11-16-2021 ambulatory CAS DOWELL Facility:[facility] Start: 11-16-2021 End: 11-16-2021 Telemedicine consultation with patient Meena Grissom MD Work Phone: [facility] Start: 11-15-2021 Telephone encounter [facility] Work Phone: Neurology Comment on above: Appointment ([place] d Pap Therapy Follow UP) Start: 11-14-2021 End: 11-14-[address] BELÉN ANDRADE Facility: Start: 11-10-2021 End: 11-11-2021 [facility] Fuentes Amaral MD Work Phone: Hematology/Oncology Comment [...] Start: 10-31-2021 End: 10-31-2021 ambulatory SAI PEREZ Facility:[facility] Start: 10-27-2021 Telephone encounter Fuentes stewart MD Work Phone: Hematology/Oncology Comment on above: Lab Orders Start: 10-24-2021 End: 10-24-2021 ambulatory CINDY RUSHING Facility:[facility] Start: 10-24-2021 End: 10-24-2021 ambulatory Cindy Rushing MD Work Phone: Allergy Comment on above: Night sweats (Primar y Dx); Lymphadenopathy; Rash and nonspecific skin eruption; Allergic rhinitis, unspecified seasonality, unspecified trigger; Moderate persistent asthma without complication Start: 10-24-2021 End: 10-24-2021 Telemedicine consultation with patient Cindy Rushing MD Work Phone: [facility] Start: 10-20-2021 End: 10-20-2021 ambulatory Micheal Perez MD Work Phone: Cardiology Comment on above: Palpitations (Primar y Dx); Symptomatic bradycardia; Orthostatic lightheadedness; Diffuse pain; Blood pressure instability; Decreased activity tolerance; Orthostatic intolerance; Moderate persistent asthma without complication; Physical deconditioning Start: 10-20-2021 End: 10-20-2021 Telemedicine consultation with patient Micheal Perez MD Work Phone: [facility] Start: 10-19-2021 End: 10-19-2021 ambulatory BHARGAVI SALDANA Facility:[facility] Start: 10-19-2021 End: 10-19-2021 ambulatory Bhargavi Fryamanda HEREDIA Work Phone: Neurology Comment on above: Chronic migraine wit hout aura, intractable, without status migrainosus (Primary Dx) Start: 10-19-2021 End: 10-19-2021 Telemedicine consultation with patient Bhargavi Fryamanda HEREDIA Work Phone: [facility] Start: 10-19-2021 End: 10-20-[address] HUSAM KIM Facility: Start: 10-14-2021 End: 10-14-2021 ambulatory Dolores Chavarria REINIER Work Phone: Neurological [facility] Comment on above: Depression, unspecif ied depression type (Primary Dx); Anxiety; Abnormal involuntary movement Start: 10-14-2021 End: 10-14-2021 Telemedicine consultation with patient Dolores Chavarria REINIER Work Phone: [facility] Start: 10-12-2021 End: 10-12-2021 ambulatory CAS DOWELL Facility:[facility] Start: 10-12-2021 End: 10-12-2021 ambulatory Ruth Villaseñor MD Work Phone: Rheumatology Comment on above: Malaise and fatigue (Primary Dx); Lymphadenopathy Start: 10-12-2021 End: 10-12-2021 Telemedicine consultation with patient Ruth Villaseñor MD Work Phone: [facility] Start: 09-30-2021 ambulatory Landen Clark APR, N.CNP Work Phone: Pulmonary Medicine Comment on above: Breast testing Start: 09-30-2021 End: 09-30-2021 Subsequent hospital visit by physician Xr Chest Main A21 Radiology Comment on above: History of COVID-19 [Z86.16] Start: 09-27-2021 End: 09-27-2021 ambulatory Pulm [place] Work Phone: Pulmonary Lab Comment on above: Spirometry Start: 09-27-2021 End: 09-27-2021 Patient encounter procedure Pulm Lab [place] Work Phone: [facility] Start: 09-23-2021 ambulatory Landen Clark APR, N.CNP Work Phone: Pulmonary Medicine Comment on above: Breathing test Start: 09-22-2021 End: 09-23-2021 ambulatory Landen Clark APRN.CNP Work Phone: Pulmonary Medicine Comment on above: Ct scan results Start: 09-22-2021 Telephone encounter Landen Clark APRN.CNP Work Phone: Pulmonary Medicine Comment on above: Results Start: 09-21-2021 End: 09-21-2021 Patient encounter procedure Ruth Villaseñor MD Work Phone: Rheumatology Comment on above: Bone pain (Primary D x); Malaise and fatigue; Lymphadenopathy Start: 09-21-2021 End: 09-22-[address] CAS DOWELL Facility:[facility] Start: 09-19-2021 End: 09-19-2021 Patient encounter procedure Landen Clark APRN.CNP Work Phone: Pulmonary Medicine Comment on above: 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); History of COVID-19; SOB (shortness of breath); Chronic cough; Chest discomfort; Palpitation; CAVANAUGH (dyspnea on exertion); Dizziness; Near syncope; Night sweats; Orthopnea; Anxiety; Myalgia; Pain in joint, multiple sites; Mass of left axilla Start: 09-19-2021 Telephone encounter Landen Clark APRN.CNP Work Phone: Pulmonary Medicine Comment on above: Kiln Placer - O ther Start: 09-16-2021 End: 09-16-2021 ambulatory Dolores Chavarria REINIER Work Phone: [facility] Comment on above: Depression, unspecif ied depression type (Primary Dx); Anxiety; Abnormal involuntary movement Start: 09-16-2021 End: 09-16-2021 Telemedicine consultation with patient Dolores Chavarria PSYD Work Phone: [facility] Start: 09-05-2021 End: 09-05-2021 Emergency department patient visit Christine Abraham DO Work Phone: [facility] ED Comment on above: Allergic reaction, i nitial encounter (Primary Dx) Start: 08-30-2021 End: 08-30-2021 [facility] Ayaka Bright MD Work Phone: [facility] Comment on above: Long COVID (Primary Dx); Diffuse pain; Decreased activity tolerance; PTSD (post-traumatic stress disorder) CT scan results sent Start: 08-23-2021 Telephone encounter Shelbie Umaña PA-C Work Phone: General Surgery Comment on above: Results - Ct Start: 08-23-2021 End: 08-23-2021 ambulatory Peter Knight LANDCARE FACILITATOR Work Phone: Neurology Comment on above: Diffuse pain (Primar y Dx); Decreased activity tolerance; Physical deconditioning; Orthostatic intolerance Start: 08-23-2021 End: 08-23-2021 Telemedicine consultation with patient Peter Knight LIO.LANDCARE FACILITATOR Work Phone: [facility] Start: 08-18-2021 ambulatory Mike Zayas MD Work Phone: Kidney Medicine [facility] Start: 08-18-2021 Patient encounter procedure Mike Zayas MD Work Phone: [facility] Start: 08-17-2021 ambulatory SAI [facility] Facility: [facility] Start: 08-17-2021 End: 08-17-2021 Subsequent hospital visit by physician [facility] Echocardiology Testing Comment on above: Symptomatic bradycar aziza [R00.1] Start: 08-16-2021 Orders Only Berlin Avila MD Work Phone: Radiology Comment on above: Chronic RLQ pain (Pr imary Dx) Start: 08-15-2021 Telephone encounter Jenni cassidy RN Work Phone: [facility] [facility] Comment on above: Insurance Authorizat ion (Emgality 120MG/ML syringes (migraine)) Start: 08-15-2021 End: 08-15-2021 Patient encounter procedure Berlin Avila MD Work Phone: General Surgery Comment on above: Chronic RLQ pain (Pr imary Dx); Diastasis recti Start: 08-12-2021 End: 08-12-2021 ambulatory Daniela Stewart PT Work Phone: [facility] Comment on above: Intractable chronic migraine without aura and without status migrainosus; Abnormal involuntary movement Start: 08-12-2021 End: 08-12-2021 Patient encounter procedure 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 Facility: Start: 07-29-2021 End: 07-29-2021 ambulatory Dolores Chavarria PSYD Work Phone: [facility] Comment on above: Depression, unspecif ied depression type (Primary Dx); Anxiety; Intractable chronic migraine without aura and without status migrainosus; Abnormal involuntary movement Start: 07-29-2021 End: 07-29-2021 Telemedicine consultation with patient Dolores Chavarria PSYD Work Phone: [facility] Start: 07-25-2021 End: 07-25-2021 Patient encounter [...] endocr ine disorder Start: 07-15-2021 End: 07-15-2021 [facility] Work Phone: [facility] Comment on above: Bleeding disorder (H CC) (Primary Dx); Coagulopathy (HCC); 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HCC) Start: 07-14-2021 End: 07-14-2021 Patient encounter procedure Aldo Ann MD Work Phone: Otolaryngology Comment on above: Allergy, initial enc ounter (Primary Dx); Headaches Start: 07-06-2021 End: 07-06-2021 Patient encounter procedure Tracee Mcintyre MD Work Phone: [facility] Comment on above: Intractable chronic migraine without [...] End: 06-27-2021 Patient encounter procedure Peter Knight APRN.LANDCARE FACILITATOR Work Phone: Neurology Comment on above: Worsening headaches (Primary Dx); Maxillary sinus cyst; Muscle spasms of lower extremity, unspecified laterality; Akathisia; Blurred vision; Chorea Start: 06-24-2021 End: 06-25-[address] VIKASH BECKHAM . Facility: Start: 06-22-2021 ambulatory Peter Knight APRN.LANDCARE FACILITATOR Work Phone: Neurology Comment on above: Legs Start: 06-20-2021 End: 06-21-2021 Emergency department patient visit Sean Moses DO Work Phone: [facility] Comment on above: Spasm of muscle (Hannah bhumika Dx); Acute nonspecific chest pain with low risk of coronary artery disease Start: 06-16-2021 Telephone encounter Yan Bass MD Work Phone: Hematology/Oncology Comment on above: Results Start: 06-16-2021 ambulatory PETER KNIGHT Facility :[facility] Start: 06-14-2021 Telephone encounter Jackelyn [...] encounter procedure Autonomic 2 Neur Main [facility] Start: 06-13-2021 ambulatory Peter Knight APRN.LANDCARE FACILITATOR Work Phone: Neurology Comment on above: Blood results Start: 06-10-2021 End: 06-10-2021 ambulatory Yan Bass MD Work Phone: Hematology/Oncology Comment on above: Coagulopathy (HCC) ( Primary Dx) Start: 06-10-2021 End: 06-10-2021 Patient encounter procedure Yan Bass MD Work Phone: [facility] Start: 06-08-2021 Chart abstracting Yan tran MD Work Phone: Hematology/Oncology Start: 06-04-2021 End: 06-04-2021 Emergency department patient visit Brian Santana MD Work Phone: [facility] ED Comment on above: Urticaria (Primary D x); Moderate persistent asthma with exacerbation Start: 05-31-2021 Telephone encounter Peter bermeo ENGAGEMENT LEAD.LANDCARE FACILITATOR Work Phone: Neurology Comment on above: Received Outside Med ical Records ([facility]) Start: 05-20-2021 End: 05-20-2021 Emergency department patient visit Cas Dowell MD Work Phone: [facility] ED Comment on above: Chest pain, unspecif ied type (Primary Dx); Abdominal pain, acute, right lower quadrant Start: 04-16-2021 End: 04-16-2021 Emergency department patient visit Mike Stevenson MD [facility] ED Comment on above: Intractable nausea a nd vomiting (Primary Dx); Hydrosalpinx; Left ovarian cyst Start: 03-07-2021 End: 03-08-2021 ambulatory CAS DOWELL [facility] Start: 03-06-2021 End: 03-07-2021 ambulatory CAS DOWELL [facility] Start: 11-01-2020 End: 11-01-2020 Emergency department patient visit Araseli Barrett MD Work Phone: [facility] ED Comment on above: COVID-19 (Primary Dx ) Start: 06-13-2020 End: 06-13-2020 Emergency department patient visit Kody Cm MD Work Phone: [facility] Comment on above: Strain of lumbar reg ion, initial encounter (Primary Dx) Procedures Date Procedure Procedure Detail Performing Clinician Start: 01-04-2023 Adult depression screening assessment Stella Flowers ENGAGEMENT LEAD-LANDCARE FACILITATOR Work Phone: Start: 01-01-2023 Hemoglobin glycosylated a1c Cas Dowell MD Work Phone: Start: 02-17-2022 Assay of free thyroxine Akila Yao MD Work Phone: Start: 01-23-2022 Cystourethroscopy with dilation of urethral stricture LORAINE RUBALCAVA Start: 10-17-2021 Adult depression screening assessment Dolores Gutierrezjanet HILLS Work Phone: Start: 10-08-2021 Adult depression screening assessment Ruth Villaseñor MD Work Phone: Start: 09-30-2021 Radiologic exam chest 2 views Lnaden Clark APRN.LANDCARE FACILITATOR Work Phone: Start: 09-27-2021 End: 09-27-2021 Co diffusing capacity Landen Clark APRN.CN P Work Phone: Start: 09-14-2021 Adult depression screening assessment Dolores Keisha HILLS Work Phone: Start: 08-17-2021 Echo tthrc r-t 2d w/wom-mode compl spec&colr d Christy Santos MD Work Phone: Start: 08-17-2021 LVEF ECHO Sai Perez MD Work Phone: Start: 07-29-2021 Adult depression screening assessment Lab Work Phone: Start: 07-18-2021 Adrenocorticotropic hormone acth [...] routine ecg w/least 12 lds w/i&r Sean Moses Work Phone: Start: 06-20-2021 Adult depression screening assessment Peter Knight APRN.LANDCARE FACILITATOR Work Phone: Start: 06-04-2021 RESPIRATORY CARE EVALUATION ONLY Brian Santana MD Work Phone: Start: 05-20-2021 Assay of troponin quantitative Shannasteven Rivas ENGAGEMENT LEAD - LANDCARE FACILITATOR Work Phone: Start: 05-20-2021 Ct abdomen & pelvis w/o contrast material Shanna Rivas ENGAGEMENT LEAD - LANDCARE FACILITATOR Work Phone: Start: 05-20-2021 Drug screen class list a Shannasteven anguiano ENGAGEMENT LEAD - LANDCARE FACILITATOR Work Phone: Start: 05-20-2021 Urinalysis microscopic only Shannasteven verduzco ENGAGEMENT LEAD - LANDCARE FACILITATOR Work Phone: Start: 05-20-2021 Urnls dip stick/tablet rgnt auto w/o microscopy Shanna Dario Evelyn ENGAGEMENT LEAD - LANDCARE FACILITATOR Work Phone: Start: 05-20-2021 Radiologic exam chest single view Shanna Rivas ENGAGEMENT LEAD - LANDCARE FACILITATOR Work Phone: Start: 05-20-2021 Assay of lactate Shannasteven Rivas ENGAGEMENT LEAD - LANDCARE FACILITATOR Work Phone: Start: 05-20-2021 BASIC METABOLIC PANEL W/ REFLEX TO MG FOR LOW K Shannasteven Rivas ENGAGEMENT LEAD - LANDCARE FACILITATOR Work Phone: Start: 05-20-2021 C-reactive protein Shanna Rivas ENGAGEMENT LEAD - LANDCARE FACILITATOR Work Phone: Start: 05-20-2021 Ecg routine ecg w/least 12 lds w/i&r Araseli Barrett MD Work Phone: Start: 05-19-2021 Adult depression screening assessment Peter Knight ENGAGEMENT LEAD.LANDCARE FACILITATOR Work Phone: Start: 04-16-2021 Ct abdomen & pelvis w/o contrast material Shanna Rivas ENGAGEMENT LEAD - LANDCARE FACILITATOR Work Phone: Start: 04-16-2021 Radiologic exam chest single view Shanna Rivas ENGAGEMENT LEAD - LANDCARE FACILITATOR Work Phone: Start: 04-16-2021 Ecg routine ecg w/least 12 lds w/i&r Shanna Rivas ENGAGEMENT LEAD - LANDCARE FACILITATOR Work Phone: Start: 04-16-2021 Urinalysis microscopic only Shanna verduzco ENGAGEMENT LEAD - LANDCARE FACILITATOR Work Phone: Start: 04-16-2021 Urine test visual color cmprsn meths Shanna Rivas ENGAGEMENT LEAD - LANDCARE FACILITATOR Work Phone: Start: 04-16-2021 Assay of lipase Shanna Rivas ENGAGEMENT LEAD - [employer] Work Phone: Start: 04-16-2021 BASIC METABOLIC PANEL W/ REFLEX TO MG FOR LOW K Shanna Rivas ENGAGEMENT LEAD - LANDCARE FACILITATOR Work Phone: Start: 04-16-2021 Hepatic function panel Shanna Rivas ENGAGEMENT LEAD - LANDCARE FACILITATOR Work Phone: Start: 02-10-2021 H/O: hysterectomy History of hysterectomy Stella Flowers ENGAGEMENT LEAD-[employer] Work Phone: Start: 11-01-2020 Ecg routine ecg [...] LORAINE RUBALCAVA Start: 04-08-2009 Laparoscopic cholecystostomy LORAINE BRUCE RRY Appendectomy LORAINE RUBALCAVA section LORAINE COCHRAN Ligation of fallopian tube J DELIA RUBALCAVA Nasal septoplasty LORAINE BAPTISTE Tympanostomy LORAINE RUBALCAVA Plan of Treatment Date Care Activity Detail Author Start: 01-05-2024 Adult BMI Screening Adult BMI Screening [facility] Start: 01-05-2024 Depression Screening Depression Screening [facility] Start: 01-05-2024 Tobacco Screening Tobacco Screening [facility] Start: 10-03-2023 End: 10-03-2023 CBC W Auto Differential panel - Blood CBC + DIFF Lab Routine 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) Coagulopathy (HCC) Expected: 10/03/2023 (Approximate), Expires: 10/03/2023 [facility] Work Phone: Comment on above: Expected: 10/03/2023 (Approximate), Expi res: 10/03/2023 Start: 10-03-2023 End: 10-03-2023 Comprehensive metabolic 2000 panel - Serum or Plasma COMP METABOLIC PANEL Lab Routine 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) Coagulopathy (HCC) Expected: 10/03/2023 (Approximate), Expires: 10/03/2023 [facility] Work Phone: Comment on above: Expected: 10/03/2023 (Approximate), Expi res: 10/03/2023 Start: 09-11-2023 ambulatory Ambulatory Facility:[facility] Start: 07-10-2023 End: 07-10-2023 Patient encounter procedure 07/10/2023 9:00 AM EDT Office Visit [facility] [address] [place] [address] Jodi Holden, PONCE [address] [place] [address] [facility] Start: 07-05-2023 End: 07-05-2023 Telemedicine consultation with patient 07/05/2023 3:30 PM EDT Telemedicine [facility] [address] [place] [address] Stella Flowers, ENGAGEMENT LEAD-LANDCARE FACILITATOR [address] [place] [address] [facility] Start: 04-12-2023 End: 04-12-2023 Patient encounter procedure 04/12/2023 3:45 PM EST Office Visit [facility] [address] [place] [id number] Akila Yao MD [address] [place] [address] [facility] Start: 04-09-2023 End: 04-09-2023 Patient encounter procedure 04/09/2023 8:45 AM EST Office Visit [facility] [address] [place] [address] Cas Dowell MD [address] [place] [address] [facility] Start: 04-03-2023 Hemoglobin A1c measurement Diabetes: Hemoglobin A1C [facility] Start: 01-30-2023 GFR test (Diabetes, CKD 3-4, OR last GFR 15-59) GFR test (Diabetes, CKD 3-4, OR last GFR 15-59) [facility] Start: 01-09-2023 Hemoglobin A1c measurement A1C test (Diabetic or Prediabetic) [facility] Start: 10-17-2022 Adult depression screening assessment DEPRESSION SCREENING [facility] Start: 10-08-2022 Adult depression screening assessment DEPRESSION SCREENING [facility] Start: 10-06-2022 Influenza vaccination [facility] Start: 10-01-2022 End: 04-03-2023 CBC W Auto Differential panel - Blood CBC + DIFF Lab Routine 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) Expected: 10/01/2022 (Approximate), Expires: 04/03/2023 [facility] Work Phone: Comment on above: Expected: 10/01/2022 (Approximate), Expi res: 04/03/2023 Start: 10-01-2022 End: 04-03-2023 Comprehensive metabolic 2000 panel - Serum or Plasma COMP METABOLIC PANEL Lab Routine 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) Expected: 10/01/2022 (Approximate), Expires: 04/03/2023 [facility] Work Phone: Comment on above: Expected: 10/01/2022 (Approximate), Expi res: 04/03/2023 Start: 09-14-2022 Adult depression screening assessment DEPRESSION SCREENING [facility] Start: 07-29-2022 Adult depression screening assessment DEPRESSION SCREENING [facility] Start: 06-29-2022 Adult depression screening assessment DEPRESSION SCREENING [facility] Start: 06-21-2022 End: 06-21-2022 Patient encounter procedure 06/21/2022 Office Visit Pulmonology Armando Balderrama DO [address] [id number] [facility] Start: 06-20-2022 Adult depression screening assessment DEPRESSION SCREENING [facility] Start: 05-25-2022 Depression Monitoring Depression Monitoring [facility] Start: 05-19-2022 Adult depression screening assessment DEPRESSION SCREENING [facility] Start: 04-16-2022 Creatinine measurement Creatinine monitoring [facility] Start: 04-16-2022 Potassium monitoring Potassium monitoring [facility] Start: 02-27-2022 End: 02-27-2022 Patient encounter procedure 02/27/2022 Office Visit Pulmonology Nabor Yancey, ENGAGEMENT LEAD - LANDCARE FACILITATOR [address] [id number] [facility] OUTRE[facility] PULM [facility] Start: 02-10-2022 End: 04-12-2022 PLATELET TRANSMISSION ELECTRON MICROSCOPIC STUDY PLATELET TRANSMISSION ELECTRON MICROSCOPIC STUDY Lab Routine 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) Expected: 02/10/2022, Expires: 04/12/2022 [facility] Work Phone: Comment on above: Expected: 02/10/2022, Expires: 3 Start: 02-05-2022 DEPRESSION ASSESSMENT DEPRESSION ASSESSMENT [facility] Start: 2021 End: 2021 Patient encounter procedure 2021 Office Visit Pulmonology Armando Balderrama, [address] [facility] [address] [place] [address] [facility] Start: 11-16-2021 End: 01-16-2022 Ferritin [Mass/volume] in Serum or Plasma FERRITIN BLD Lab Routine RLS (restless legs syndrome) Expected: 11/16/2021, Expires: 01/16/2022 [facility] Work Phone: Comment on above: Expected: 11/16/2021, Expires: 2 Start: 11-16-2021 End: 01-16-2022 Iron and Iron binding capacity panel - Serum or Plasma IRON + TIBC Lab Routine RLS (restless legs syndrome) Expected: 11/16/2021, Expires: 01/16/2022 [facility] Work Phone: Comment on above: Expected: 11/16/2021, Expires: 2 Start: 11-01-2021 Creatinine measurement Creatinine monitoring [facility] Work Phone: Start: 11-01-2021 Potassium monitoring Potassium monitoring [facility] Work Phone: Start: 10-06-2021 Influenza vaccination [facility] Start: 09-28-2021 Glaucoma screening Diabetic retinal exam [facility] Start: 09-21-2021 End: 11-21-2021 Phosphate [Mass/volume] in Serum or Plasma [facility] Work Phone: Comment on above: Expected: 09/21/2021, Expires: 2 Start: 09-19-2021 End: 11-19-2021 25-hydroxyvitamin D3 [Mass/volume] in Serum or Plasma VITAMIN D 25 HYDROXY Lab Routine History of COVID-19 Post-acute sequelae of COVID-19 (PASC) SOB (shortness of breath) Chronic cough Chest discomfort Palpitation CAVANAUGH (dyspnea on exertion) Dizziness Near syncope Night sweats Orthopnea Anxiety Myalgia Pain in joint, multiple sites Expected: 09/19/2021, Expires: 11/19/2021 [facility] Work Phone: Comment on above: Expected: 09/19/2021, Expires: 2 Start: 09-19-2021 End: 11-19-2021 C reactive protein [Mass/volume] in Serum or Plasma C-REACTIVE PROTEIN (CRP) Lab Routine History of COVID-19 Post-acute sequelae of COVID-19 (PASC) SOB (shortness of breath) Chronic cough Chest discomfort Palpitation CAVANAUGH (dyspnea on exertion) Dizziness Near syncope Night sweats Orthopnea Anxiety Myalgia Pain in joint, multiple sites Expected: 09/19/2021, Expires: 11/19/2021 [facility] Work Phone: Comment on above: Expected: 09/19/2021, Expires: 2 Start: 09-19-2021 End: 11-19-2021 CARDIOLIPIN IGM ABS CARDIOLIPIN IGM ABS Lab Routine History of COVID-19 Post-acute sequelae of COVID-19 (PASC) SOB (shortness of breath) Chronic cough Chest discomfort Palpitation CAVANAUGH (dyspnea on exertion) Dizziness Near syncope Night sweats Orthopnea Anxiety Myalgia Pain in joint, multiple sites Expected: 09/19/2021, Expires: 11/19/2021 [facility] Work Phone: Comment on above: Expected: 09/19/2021, Expires: 2 Start: 09-19-2021 End: 11-19-2021 CBC panel - Blood by Automated count CBC Lab Routine History of COVID-19 Post-acute sequelae of COVID-19 (PASC) SOB (shortness of breath) Chronic cough Chest discomfort Palpitation CAVANAUGH (dyspnea on exertion) Dizziness Near syncope Night sweats Orthopnea Anxiety Myalgia Pain in joint, multiple sites Expected: 09/19/2021, Expires: 11/19/2021 [facility] Work Phone: Comment on above: Expected: 09/19/2021, Expires: 2 Start: 09-19-2021 End: 11-19-2021 Cobalamin (Vitamin B12) [Mass/volume] in Serum or Plasma VITAMIN B12 BLOOD Lab Routine History of COVID-19 Post-acute sequelae of COVID-19 (PASC) SOB (shortness of breath) Chronic cough Chest discomfort Palpitation CAVANAUGH (dyspnea on exertion) Dizziness Near syncope Night sweats Orthopnea Anxiety Myalgia Pain in joint, multiple sites Expected: 09/19/2021, Expires: 11/19/2021 [facility] Work Phone: Comment on above: Expected: 09/19/2021, Expires: 2 Start: 09-19-2021 End: 11-19-2021 Comprehensive metabolic 2000 panel - Serum or Plasma COMP METABOLIC PANEL Lab Routine History of COVID-19 Post-acute sequelae of COVID-19 (PASC) SOB (shortness of breath) Chronic cough Chest discomfort Palpitation CAVANAUGH (dyspnea on exertion) Dizziness Near syncope Night sweats Orthopnea Anxiety Myalgia Pain in joint, multiple sites Expected: 09/19/2021, Expires: 11/19/2021 [facility] Work Phone: Comment on above: Expected: 09/19/2021, Expires: 2 Start: 09-19-2021 End: 11-19-2021 Erythrocyte sedimentation rate SED RATE WESTERGREN Lab Routine History of COVID-19 Post-acute sequelae of COVID-19 (PASC) SOB (shortness of breath) Chronic cough Chest discomfort Palpitation CAVANAUGH (dyspnea on exertion) Dizziness Near syncope Night sweats Orthopnea Anxiety Myalgia Pain in joint, multiple sites Expected: 09/19/2021, Expires: 11/19/2021 [facility] Work Phone: Comment on above: Expected: 09/19/2021, Expires: 2 Start: 09-19-2021 End: 11-19-2021 Fibrin D-dimer FEU [Mass/volume] in Platelet poor plasma D-DIMER Lab Routine History of COVID-19 Post-acute sequelae of COVID-19 (PASC) SOB (shortness of breath) Chronic cough Chest discomfort Palpitation CAVANAUGH (dyspnea on exertion) Dizziness Near syncope Night sweats Orthopnea Anxiety Myalgia Pain in joint, multiple sites Expected: 09/19/2021, Expires: 11/19/2021 [facility] Work Phone: Comment on above: Expected: 09/19/2021, Expires: 2 Start: 09-19-2021 End: 11-19-2021 Natriuretic peptide.B prohormone N-Terminal [Mass/volume] in Serum or Plasma NT PRO BNP Lab Routine History of COVID-19 Post-acute sequelae of COVID-19 (PASC) SOB (shortness of breath) Chronic cough Chest discomfort Palpitation CAVANAUGH (dyspnea on exertion) Dizziness Near syncope Night sweats Orthopnea Anxiety Myalgia Pain in joint, multiple sites Expected: 09/19/2021, Expires: 11/19/2021 [facility] Work Phone: Comment on above: Expected: 09/19/2021, Expires: 2 Start: 09-19-2021 End: 11-19-2021 OMEGACHECK OMEGACHECK Lab Routine History of COVID-19 Post-acute sequelae of COVID-19 (PASC) SOB (shortness of breath) Chronic cough Chest discomfort Palpitation CAVANAUGH (dyspnea on exertion) Dizziness Near syncope Night sweats Orthopnea Anxiety Myalgia Pain in joint, multiple sites Expected: 09/19/2021, Expires: 11/19/2021 [facility] Work Phone: Comment on above: Expected: 09/19/2021, Expires: 2 Start: 09-19-2021 End: 11-19-2021 TMAO TMAO Lab Routine History of COVID-19 Post-acute sequelae of COVID-19 (PASC) SOB (shortness of breath) Chronic cough Chest discomfort Palpitation CAVANAUGH (dyspnea on exertion) Dizziness Near syncope Night sweats Orthopnea Anxiety Myalgia Pain in joint, multiple sites Expected: 09/19/2021, Expires: 11/19/2021 [facility] Work Phone: Comment on above: Expected: 09/19/2021, Expires: 2 Start: 09-19-2021 End: 11-19-2021 TRACE ELEMENTS/TPN TRACE ELEMENTS/TPN Lab Routine History of COVID-19 Post-acute sequelae of COVID-19 (PASC) SOB (shortness of breath) Chronic cough Chest discomfort Palpitation CAVANAUGH (dyspnea on exertion) Dizziness Near syncope Night sweats Orthopnea Anxiety Myalgia Pain in joint, multiple sites Expected: 09/19/2021, Expires: 11/19/2021 [facility] Work Phone: Comment on above: Expected: 09/19/2021, Expires: 2 Start: 09-05-2021 Influenza vaccination Flu vaccine (#1) [facility] Start: 08-24-2021 End: 08-24-2021 Patient encounter procedure 08/24/2021 Office Visit Pulmonology Armando Balderrama, DO [address] [place] [address] [facility] Start: 07-25-2021 End: 09-24-2021 Complement C3 [Mass/volume] in Serum or Plasma [facility] Work Phone: Comment on above: Expected: 07/25/2021, Expires: 2 Start: 07-25-2021 End: 09-24-2021 Complement C4 [Mass/volume] in Serum or Plasma [facility] Work Phone: Comment on above: Expected: 07/25/2021, Expires: 2 Start: 07-25-2021 End: 09-24-2021 TRYPTASE BLOOD [facility] Work Phone: Comment on above: Expected: 07/25/2021, Expires: 2 Start: 07-05-2021 End: 09-04-2021 Corticotropin [Mass/volume] in Plasma ACTH BLD Lab Routine Screening for endocrine disorder Expected: 07/05/2021, Expires: 09/04/2021 [facility] Work Phone: Comment on above: Expected: 07/05/2021, Expires: 2 Start: 07-05-2021 End: 09-04-2021 Cortisol [Mass/volume] in Serum or Plasma CORTISOL BLD Lab Routine Screening for endocrine disorder Expected: 07/05/2021, Expires: 09/04/2021 [facility] Work Phone: Comment on above: Expected: 07/05/2021, Expires: 2 Start: 07-01-2021 End: 08-31-2021 CBC W Ordered Manual Differential panel - Blood PATHOLOGIST INTERPRETATION WITH CBC AND DIFF Lab Routine Coagulopathy (HCC) 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HCC) Expected: 07/01/2021, Expires: 08/31/2021 [facility] Work Phone: Comment on above: Expected: 07/01/2021, Expires: 2 Start: 07-01-2021 End: 08-31-2021 Fibrinogen [Mass/volume] in Platelet poor plasma by Coagulation assay FIBRINOGEN Lab Routine Coagulopathy (HCC) 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HCC) Expected: 07/01/2021, Expires: 08/31/2021 [facility] Work Phone: Comment on above: Expected: 07/01/2021, Expires: 2 Start: 07-01-2021 End: 08-31-2021 FIBRINOGEN ANTIGEN FIBRINOGEN ANTIGEN Lab Routine Coagulopathy (HCC) 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HCC) Expected: 07/01/2021, Expires: 08/31/2021 [facility] Work Phone: Comment on above: Expected: 07/01/2021, Expires: 2 Start: 07-01-2021 End: 08-31-2021 PLATELET AGGREGATION PANEL PLATELET AGGREGATION PANEL Lab Routine Coagulopathy (HCC) 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HCC) Expected: 07/01/2021, Expires: 08/31/2021 [facility] Work Phone: Comment on above: Expected: 07/01/2021, Expires: 2 Start: 07-01-2021 End: 08-31-2021 PLATELET FUNCTION SCREEN PLATELET FUNCTION SCREEN Lab Routine Coagulopathy (HCC) 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HCC) Expected: 07/01/2021, Expires: 08/31/2021 [facility] Work Phone: Comment on above: Expected: 07/01/2021, Expires: 2 Start: 07-01-2021 End: 08-31-2021 THROMBOGRAPH HEPARINASE PANEL THROMBOGRAPH HEPARINASE PANEL Lab Routine Coagulopathy (HCC) 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HCC) Expected: 07/01/2021, Expires: 08/31/2021 [facility] Work Phone: Comment on above: Expected: 07/01/2021, Expires: 2 Start: 06-27-2021 End: 08-27-2021 Alpha tocopherol [Mass/volume] in Serum or Plasma VITAMIN E/TOCOPHEROL Lab Routine Muscle spasms of lower extremity, unspecified laterality Akathisia Expected: 06/27/2021, Expires: 08/27/2021 [facility] Work Phone: Comment on above: Expected: 06/27/2021, Expires: 2 Start: 06-27-2021 End: 08-27-2021 Ceruloplasmin [Mass/volume] in Serum or Plasma CERULOPLASMIN BLD Lab Routine Muscle spasms of lower extremity, unspecified laterality Akathisia Expected: 06/27/2021, Expires: 08/27/2021 [facility] Work Phone: Comment on above: Expected: 06/27/2021, Expires: 2 Start: 06-27-2021 End: 08-27-2021 CK CREATINE KINASE CK CREATINE KINASE Lab Routine Muscle spasms of lower extremity, unspecified laterality Akathisia Expected: 06/27/2021, Expires: 08/27/2021 [facility] Work Phone: Comment on above: Expected: 06/27/2021, Expires: 2 Start: 06-27-2021 End: 08-27-2021 COPPER, SERUM/PLASMA FREE COPPER, SERUM/PLASMA FREE Lab Routine Muscle spasms of lower extremity, unspecified laterality Akathisia Expected: 06/27/2021, Expires: 08/27/2021 [facility] Work Phone: Comment on above: Expected: 06/27/2021, Expires: 2 Start: 06-27-2021 End: 08-27-2021 FERRITIN BLD FERRITIN BLD Lab Routine Muscle spasms of lower extremity, unspecified laterality Akathisia Expected: 06/27/2021, Expires: 08/27/2021 [facility] Work Phone: Comment on above: Expected: 06/27/2021, Expires: 2 Start: 06-14-2021 End: 08-14-2021 Corticotropin [Mass/volume] in Plasma ACTH BLD Lab Routine Screening for endocrine disorder Expected: 06/14/2021, Expires: 08/14/2021 [facility] Work Phone: Comment on above: Expected: 06/14/2021, Expires: 2 Start: 06-14-2021 End: 08-14-2021 Cortisol [Mass/volume] in Serum or Plasma [facility] Work Phone: Comment on above: Expected: 06/14/2021, Expires: 2 Start: 06-14-2021 End: 08-14-2021 DHEA-S BLD [facility] Work Phone: Comment on above: Expected: 06/14/2021, Expires: 2 Start: 06-10-2021 End: 08-10-2021 APTT INCUBATED MIXING STUDY APTT INCUBATED MIXING STUDY Lab Routine Coagulopathy (HCC) Expected: 06/10/2021, Expires: 08/10/2021 [facility] Work Phone: Comment on above: Expected: 06/10/2021, Expires: 2 Start: 06-10-2021 End: 08-10-2021 Coagulation factor IX activity actual/normal in Platelet poor plasma by Coagulation assay FACTOR IX:C ASSAY Lab Routine Coagulopathy ([facility]) Expected: 06/10/2021, Expires: 08/10/2021 [facility] Work Phone: Comment on above: Expected: 06/10/2021, Expires: 2 Start: 06-10-2021 End: 08-10-2021 Coagulation factor V activity actual/normal in Platelet poor plasma by Coagulation assay FACTOR V:C ASSAY Lab Routine Coagulopathy ([facility]) Expected: 06/10/2021, Expires: 08/10/2021 [facility] Work Phone: Comment on above: Expected: 06/10/2021, Expires: 2 Start: 06-10-2021 End: 08-10-2021 Coagulation factor VIII activity actual/normal in Platelet poor plasma by Coagulation assay FACTOR VIII:C ASSAY Lab Routine Coagulopathy ([facility]) Expected: 06/10/2021, Expires: 08/10/2021 [facility] Work Phone: Comment on above: Expected: 06/10/2021, Expires: 2 Start: 06-10-2021 End: 08-10-2021 Coagulation factor X activity actual/normal in Platelet poor plasma by Coagulation assay FACTOR X:C ASSAY Lab Routine Coagulopathy ([facility]) Expected: 06/10/2021, Expires: 08/10/2021 [facility] Work Phone: Comment on above: Expected: 06/10/2021, Expires: 2 Start: 06-10-2021 End: 08-10-2021 Coagulation factor XI activity actual/normal in Platelet poor plasma by Coagulation assay FACTOR XI:C ASSAY Lab Routine Coagulopathy ([facility]) Expected: 06/10/2021, Expires: 08/10/2021 [facility] Work Phone: Comment on above: Expected: 06/10/2021, Expires: 2 Start: 06-10-2021 End: 08-10-2021 PLATELET AGGREGATION PANEL PLATELET AGGREGATION PANEL Lab Routine Coagulopathy ([facility]) Expected: 06/10/2021, Expires: 08/10/2021 [facility] Work Phone: Comment on above: Expected: 06/10/2021, Expires: 2 Start: 06-10-2021 End: 08-10-2021 PLATELET FUNCTION SCREEN PLATELET FUNCTION SCREEN Lab Routine Coagulopathy ([facility]) Expected: 06/10/2021, Expires: 08/10/2021 [facility] Work Phone: Comment on above: Expected: 06/10/2021, Expires: 2 Start: 06-10-2021 End: 08-10-2021 Prothrombin activity actual/normal in Platelet poor plasma by Coagulation assay FACTOR II:C ASSAY Lab Routine Coagulopathy ([facility]) Expected: 06/10/2021, Expires: 08/10/2021 [facility] Work Phone: Comment on above: Expected: 06/10/2021, Expires: 2 Start: 06-10-2021 End: 08-10-2021 VON WILLEBRAND DX PANEL VON WILLEBRAND DX PANEL Lab Routine Coagulopathy ([facility]) Expected: 06/10/2021, Expires: 08/10/2021 [facility] Work Phone: Comment on above: Expected: 06/10/2021, Expires: 2 Start: 05-25-2021 End: 05-25-2021 Patient encounter procedure 05/25/2021 Office Visit Pulmonology Armando Balderrama DO [address] [place] [address] [facility] Start: 02-28-2021 End: 02-28-2021 Patient encounter procedure 02/28/2021 Office Visit Pulmonology Fortunato eDan MD [address] [address] [phone] [facility] Start: 02-05-2021 DEPRESSION ASSESSMENT DEPRESSION ASSESSMENT [facility] Start: 10-06-2020 Influenza vaccination [facility] Start: 06-28-2020 End: 06-28-2020 Patient encounter procedure 06/28/2020 Office Visit Pulmonology Fortunato Dean MD [address] [address] [phone] [facility] Start: 12-20-2018 Diabetes screen Diabetes screen [facility] Start: 03-17-2016 Screening for malignant neoplasm of cervix Cervical cancer screen [facility] Work Phone: Start: 12-20-2013 HPV TESTING HPV TESTING [facility] Start: 12-20-2004 PAP TESTING PAP TESTING [facility] Start: 12-20-2002 DTaP,Tdap and Td Vaccines (1 - Tdap) DTaP,Tdap and Td Vaccines (1 - Tdap) [facility] Start: 12-20-2002 DTaP/Tdap/Td vaccine (1 - Tdap) DTaP/Tdap/Td vaccine (1 - Tdap) [facility] Start: 12-20-2002 Hepatitis B vaccine (1 of 3 - Risk 3-dose series) Hepatitis B vaccine (1 of 3 - Risk 3-dose series) [facility] Start: 12-20-2002 Urine microalbumin profile DTAP,TDAP,TD (1 - Tdap) [facility] Start: 12-20-2002 Urine screening for protein Diabetes: Urine Protein Screening [facility] Start: 12-20-2001 Adult BMI Follow Up Plan Adult BMI Follow Up Plan [facility] Start: 12-20-2001 ANNUAL PCP TEAM CHRONIC DISEASE VISIT ANNUAL PCP TEAM CHRONIC DISEASE VISIT [facility] Start: 12-20-2001 HEPATITIS C SCREENING HEPATITIS C SCREENING [facility] Start: 12-20-2001 Hepatitis C screening Hepatitis C screen [facility] Start: 12-20-2001 HIV SCREENING HIV SCREENING [facility] Start: 12-20-2001 Urine screening for protein Diabetic Alb to Cr ratio (uACR) test [facility] Start: 1999 COVID-19 Vaccine (1) COVID-19 Vaccine (1) [facility] Work Phone: Start: 12-20-1998 HIV screening HIV screen [facility] Start: 1995 COVID-19 Vaccine (1) COVID-19 Vaccine (1) [facility] Work Phone: Start: 1995 Depression Screen Depression Screen [facility] Start: 12-20-1993 Diabetic foot examination Diabetic foot exam [facility] Start: 12-20-1993 Glaucoma screening Diabetes: Retinopathy Screening [facility] Start: 12-20-1993 Lipid panel Lipids [facility] Start: 12-20-1989 PNEUMOCOCCAL (1 - PCV) PNEUMOCOCCAL (1 - PCV) [facility] Start: 12-20-1989 Pneumococcal 0-64 years Vaccine (1 - PCV) Pneumococcal 0-64 years Vaccine (1 - PCV) [facility] Start: 12-20-1989 Pneumococcal 0-64 years Vaccine (1 of 2 - PPSV23) Pneumococcal 0-64 years Vaccine (1 of 2 - PPSV23) [facility] Start: 12-20-1988 COVID-19 VACCINE (#1) COVID-19 VACCINE (#1) [facility] Start: 12-20-1988 COVID-19 Vaccine (1) COVID-19 Vaccine (1) [facility] Start: 12-20-1984 Varicella vaccine (1 of 2 - 2-dose childhood series) Varicella vaccine (1 of 2 - 2-dose childhood series) [facility] Start: 06-19-1984 COVID-19 VACCINE (#1) COVID-19 VACCINE (#1) [facility] Start: 1983 HEPATITIS B (1 of 3 - 3-dose series) HEPATITIS B (1 of 3 - 3-dose series) [facility] Start: 1983 Hepatitis C screening Hepatitis C screen [facility] ACTIGRAPHY TESTING ACTIGRAPHY TE STING Procedures Routine Shift work sleep disorder Poor sleep pattern 1 Occurrences starting 11/16/2021 [facility] [employer] Work Phone: Comment on above: 1 Occurrences starting 11/16/2021 Ambulatory bp mntr w /sw 24 hr+ rec scan ewa i&r AMBULATORY BP MONITORING Cardiology Routine Blood pressure instability Ordered: 07/21/2021 [employer] [facility] [employer] Work Phone: Comment on above: Ordered: 07/21/2021 Cardiovascular funct ion eval w/tilt table w/mntr TILT TABLE EVALUATION Cardiology Routine Palpitations Symptomatic bradycardia Orthostatic intolerance Ordered: 10/20/2021 [employer] Work Phone: Comment on above: Ordered: 10/20/2021 End: 07-21-2022 Echocardiography ECHO Cardiology Routine Symptomatic bradycardia Blood pressure instability History of COVID-19 1 Occurrences starting 07/21/2021 until 07/21/2022 [employer] [facility] [employer] Work Phone: Comment on above: 1 Occurrences starting 07/21/2021 until 07/21/2022 EKG 12 Lead EKG 12 Lead ECG STAT 11/01/2020 4:26 PM EDT [employer] Work Phone: EKG 12 Lead EKG 12 Lead ECG STAT 04/16/2021 8:11 PM EST [employer] Work Phone: EKG 12 Lead EKG 12 Lead ECG STAT 06/21/2021 12:06 AM EDT [employer] Work Phone: End: 10-19-2022 LUNG DIFFUSION CAPACITY (DLCO) LUNG DIFFUSION CAPACITY (DLCO) PFT Routine History of COVID-19 Post-acute sequelae of COVID-19 (PASC) SOB (shortness of breath) Chronic cough Chest discomfort Palpitation CAVANAUGH (dyspnea on exertion) Dizziness Near syncope Night sweats Orthopnea Anxiety Myalgia Pain in joint, multiple sites 1 Occurrences starting 09/19/2021 until 10/19/2022 [employer] [facility] [employer] Work Phone: Comment on above: 1 Occurrences starting 09/19/2021 until 10/19/2022 End: 10-19-2022 LUNG VOLUMES LUNG VOLUMES PFT Routine History of COVID-19 Post-acute sequelae of COVID-19 (PASC) SOB (shortness of breath) Chronic cough Chest discomfort Palpitation CAVANAUGH (dyspnea on exertion) Dizziness Near syncope Night sweats Orthopnea Anxiety Myalgia Pain in joint, multiple sites 1 Occurrences starting 09/19/2021 until 10/19/2022 [facility] Work Phone: Comment on above: 1 Occurrences starting 09/19/2021 until 10/19/2022 End: 01-05-2023 NITRIC OXIDE, EXHALED NITRIC OXIDE, EXHALED PFT Routine Moderate persistent asthma without complication SOB (shortness of breath) Post-acute sequelae of COVID-19 (PASC) 1 Occurrences starting 12/06/2021 until 01/05/2023 [facility] Work Phone: Comment on above: 1 Occurrences starting 12/06/2021 until 01/05/2023 OUTSIDE VENDOR CARDI AC OUTPATIENT EXTENDED RHYTHM RECORDING (WITHOUT TELEMETRY) OUTSIDE VENDOR CARDIAC OUTPATIENT EXTENDED RHYTHM RECORDING (WITHOUT TELEMETRY) Holter Routine Palpitations Symptomatic bradycardia Orthostatic lightheadedness Diffuse pain Blood pressure instability Decreased activity tolerance Orthostatic intolerance Moderate persistent asthma without complication Physical deconditioning Ordered: 10/20/2021 [facility] Work Phone: Comment on above: Ordered: 10/20/2021 End: 12-16-2022 PAP NAP PSG (CPAP, BILEVEL, ASV) PAP NAP PSG (CPAP, BILEVEL, ASV) Procedures Routine KATELIN on CPAP Poor compliance with CPAP treatment 1 Occurrences starting 11/16/2021 until 12/16/2022 [facility] Work Phone: Comment on above: 1 Occurrences starting 11/16/2021 until 12/16/2022 End: 12-16-2022 PAP TITRATION PSG (CPAP, BIPAP, ASV) PAP TITRATION PSG (CPAP, BIPAP, ASV) Procedures Routine KATELIN on CPAP 1 Occurrences starting 11/16/2021 until 12/16/2022 [facility] Work Phone: Comment on above: 1 Occurrences starting 11/16/2021 until 12/16/2022 End: 02-17-2022 PLATELET ELECT.HOSSEIN OLMBARDI [facility] Work Phone: Comment on above: Once for 1 Occurrences starting 02/17/19 until 02/17/2022 End: 10-19-2022 Radiologic exam chest 2 views XR CHEST 2V FRONTAL/LAT Radiology Routine History of COVID-19 Post-acute sequelae of COVID-19 (PASC) SOB (shortness of breath) Chronic cough Chest discomfort Palpitation CAVANAUGH (dyspnea on exertion) Dizziness Near syncope Night sweats Orthopnea Anxiety Myalgia Pain in joint, multiple sites 1 Occurrences starting 09/19/2021 until 10/19/2022 [facility] Work Phone: Comment on above: 1 Occurrences starting 09/19/2021 until 10/19/2022 End: 10-19-2022 SIX MINUTE WALK SIX MINUTE WALK PFT Routine History of COVID-19 Post-acute sequelae of COVID-19 (PASC) SOB (shortness of breath) Chronic cough Chest discomfort Palpitation CAVANAUGH (dyspnea on exertion) Dizziness Near syncope Night sweats Orthopnea Anxiety Myalgia Pain in joint, multiple sites 1 Occurrences starting 09/19/2021 until 10/19/2022 [facility] Work Phone: Comment on above: 1 Occurrences starting 09/19/2021 until 10/19/2022 SIX MINUTE WALK SIX MINUTE WALK PFT Routine History of COVID-19 Post-acute sequelae of COVID-19 (PASC) SOB (shortness of breath) Chronic cough Chest discomfort Palpitation CAVANAUGH (dyspnea on exertion) Dizziness Near syncope Night sweats Orthopnea Anxiety Myalgia Pain in joint, multiple sites 09/27/2021 8:23 AM EDT [facility] Work Phone: End: 10-19-2022 SPIROMETRY - BASELINE AND POST DILATOR SPIROMETRY - BASELINE AND POST DILATOR PFT Routine History of COVID-19 Post-acute sequelae of COVID-19 (PASC) SOB (shortness of breath) Chronic cough Chest discomfort Palpitation CAVANAUGH (dyspnea on exertion) Dizziness Near syncope Night sweats Orthopnea Anxiety Myalgia Pain in joint, multiple sites 1 Occurrences starting 09/19/2021 until 10/19/2022 [facility] Work Phone: Comment on above: 1 Occurrences starting 09/19/2021 until 10/19/2022 End: 01-05-2023 SPIROMETRY - BASELINE AND POST DILATOR SPIROMETRY - BASELINE AND POST DILATOR PFT Routine Moderate persistent asthma without complication SOB (shortness of breath) Post-acute sequelae of COVID-19 (PASC) 1 Occurrences starting 12/06/2021 until 01/05/2023 [facility] Work Phone: Comment on above: 1 Occurrences starting 12/06/2021 until 01/05/2023 End: 10-19-2022 Us chest real time w/image documentation US CHEST WALL/SOFT TISSUE Radiology Routine Post-acute sequelae of COVID-19 (PASC) Mass of left axilla 1 Occurrences starting 09/19/2021 until 10/19/2022 [facility] Work Phone: Comment on above: 1 Occurrences starting 09/19/2021 until 10/19/2022 End: 09-15-2022 Us pelvic nonobstetric image dcmtn limited/f/u US PELVIS LTD Radiology Routine Chronic RLQ pain 1 Occurrences starting 08/16/2021 until 09/15/2022 [facility] Work Phone: Comment on above: 1 Occurrences starting 08/16/2021 until 09/15/2022 End: 09-14-2022 US SOFT TISSUE ABDOMEN US SOFT TISSUE ABDOMEN Radiology Routine Chronic RLQ pain 1 Occurrences starting 08/15/2021 until 09/14/2022 [facility] Work Phone: Comment on above: 1 Occurrences starting 08/15/2021 until 09/14/2022 [facility] Immunizations Immunization Date Immunization Notes Care Provider [facility] 11-20-2019 influenza virus vaccine, H5N1, A/[place] (national stockpile) Cas Dowell MD Work Phone: [facility] 11-20-2019 influenza virus vaccine, unspecified formulation Araseli Barrett MD Work Phone: [facility] Work Phone: 11-20-2019 influenza, unspecifi ed formulation LORAINE RUBALCAVA [facility] 11-06-2019 influenza virus vaccine, unspecified formulation LORAINE RUBALCAVA [facility] 11-06-2019 influenza, high dose seasonal, preservative-free Yan Bass MD Work Phone: [facility] 10-27-2019 influenza virus vaccine, unspecified formulation LORAINE RUBALCAVA [facility] 10-27-2019 influenza, injectabl e, quadrivalent, preservative free Yan Bass MD Work Phone: [facility] Payers Date Payer Category Payer Unknown [id number] 2022 Unknown [id number] 2022 Unknown [id number] 2014 Unknown MMO MMO [employer] [id number] 2014-Present [phone] [address] [place] [address] PPO [id number]. [id number] 2014 Unknown [id number] 1.13.159.2.7.3. [id number] 1983 Unknown [id number] 2.16.840.1.843089.3.579.2.174 1983 Unknown [id number] 2.16.840.1.253443.3.579.2.174 1983 Unknown [id number] 2.16.840.1.115274.3.579.2.175 1983 Unknown [id number] 2.16.840.1.757273.3.579.2.593 1983 Unknown [id number] 2.16.840.1.694581.3.579.2.593 1983 Unknown [id number] 2.16.840.1.052667.3.579.2.593 1983 Unknown [id number] 2.16.840.1.791964.3.579.2.593 1983 Unknown [id number] 2.16.840.1.824662.3.579.2.593 1983 Unknown [id number] 2.16.840.1.671644.3.579.2.593 1983 Unknown [id number] 2.16.840.1.424954.3.579.2.593 1983 Unknown [id number] 2.16.840.1.934614.3.579.2.593 1983 Unknown [id number] 2.16.840.1.816383.3.579.2.593 1983 Unknown [id number] 2.16.840.1.032549.3.579.2.593 1983 Unknown [id number] 2.16.840.1.449813.3.579.2.593 1983 Unknown [id number] 2.16.840.1.447571.3.579.2.593 1983 Unknown [id number] 2.16.840.1.138919.3.579.2.173 1983 Unknown [id number] 2.16.840.1.439730.3.579.2.173 1983 Unknown [id number] 2.16.840.1.405912.3.579.2.173 1983 Unknown [id number] 2.16.840.1.336567.3.579.2.173 1983 Unknown [id number] 2.16.840.1.258398.3.579.2.173 1983 Unknown [id number] 2.16.840.1.272853.3.579.2.173 1983 Unknown [id number] 2.16.840.1.594576.3.579.2.727 1983 Unknown [id number] 2.16.840.1.726444.3.579.2.727 1983 Unknown [id number] 2.16.840.1.364070.3.579.2.727 1983 Unknown [id number] 2.16.840.1.350002.3.579.2.727 1983 Unknown [id number] 2.16.840.1.797967.3.579.2.727 1983 Unknown [id number] 2.16.840.1.639679.3.579.2.727 1983 Unknown [id number] 2.16.840.1.214316.3.579.2.196 1983 Unknown [id number] 2.16.840.1.111251.3.579.2.196 1983 Unknown [id number] 2.16.840.1.025172.3.579.2.196 1983 Unknown [id number] 2.16.840.1.598667.3.579.2.196 1983 Unknown [id number] 2.16.840.1.299800.3.579.2.196 1983 Unknown [id number] 2.16.840.1.098937.3.579.2.1259 1983 Unknown [id number] 2.16.840.1.593758.3.579.2.1259 1959 Unknown [id number] 1.2.840.624168.1.13.239.2.7.3. [id number] 1959 Unknown [id number] 1.2.840.544402.1.13.239.2.7.3. [id number] Social History Date Type Detail Facility Start: 06-13-2020 End: 07-07-2022 Tobacco smoking status [facility] Never smoker [employer] Phone: Start: 06-13-2020 End: 01-10-2022 Alcohol intake Current non-drinker of alcohol (finding) [employer] Phone: Start: 1985 Sex Assigned At Not on file [employer] Phone: Start: 05-10-2021 End: 01-30-2022 Exposure to SARS-CoV-2 (event) Not sure [employer] Start: 08-30-2020 End: 07-07-2022 Tobacco use and exposure Never used [employer] Start: 05-24-2021 End: 07-01-2021 Alcohol intake Current drinker of alcohol (finding) [facility] Start: 02-23-2014 History SDOH Alcohol Comment rarely uses alcohol [facility] Start: 1985 Sex Assigned At Female [facility] Start: 07-22-2021 End: 01-04-2023 Alcohol intake Ex-drinker (finding) [facility] Start: 09-17-2021 End: 09-27-2021 Exposure to SARS-CoV-2 (event) Unable to assess [facility] History of tobacco use Passive smoker [facility] Tobacco smoking status Never [facility] Start: 10-02-2022 End: 01-16-2023 Sex Assigned At Female [facility] Start: 10-02-2022 End: 01-16-2023 History of Social function [facility] Start: 09-26-2020 Gender identity Identifies as female gender (finding) [facility] Start: 09-26-2020 Sexual orientation Heterosexual (finding) [facility] Start: 01-16-2023 Alcohol intake Lifetime non-drinker (finding) [facility] Functional Status Date Assessment Result Facility 09-05-2022 Functional Status N/A [facility] 02-28-2022 Functional Status N/A [facility] 01-20-2022 Functional Status N/A [facility] 2021 Functional Status N/A [facility] Clinical Notes 09-06-2020 to 01-10-2023 Patient [...] [facility]. Hx Cesar autoimmune thyroid disease, celiac disease. She underwent an implantable loop recorder for alf cardiac rhythm monitoring due to syncope in June 2022. I saw Leana in follow up November 2022. After this, URI in November and December 2022 she had a upper respiratory infection. BP dropped to 80/40mmhg. But recently BP is stable. In December she experienced an episode of chest pain associated with cough and went to [place] [facility] (12/18/2022). She was treated for bronchitis. She has history of asthma. She saw Angelika Coronel APRN in the [facility] as an ED follow up on 12/26/2022. At that visit she complained of dizziness, near syncope and sharp left CP radiation to shoulder. Chief Complaint: Orthostatic intolerance. Dizziness and lightheaded. 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 Last [...] diagnosis was Autonomic dysfunction. 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 Stop short acting pyridostigmine. Add TS 180 mg daily. Physical therapy. Monitor HR and BP RTC 6-12 months. [facility] 01-04-2023 Note Chief Complaint consultation for GERD HPI Staff 37 year old female presents on consultation from Dr. Dowell for GERD. Taking Protonix 40mg daily x 6 months. Reports some sternal chest pain, bloating and sour taste in mouth. Verbalized compliance associate is concerned GERD is contributing to frequent lung infections. Reports EGD greater than 10 years ago with gastric ulcer and H.pylori infection. History of Present Illness 37 yo female with h/o DMII, asthma, hypothyroidism, KATELIN, anxiety/depression; referred for worsening GERD; patient reports frequent bloating and epigastric pain radiating into chest, some regurgitation; no dysphagia; sees a Miter Grinder Operator that feels her frequent lung infections are [...] 50 mcg/inh madeline (more content not included)... [facility] Comment on above: Result Comment: Elec tronically Signed By: MARLON PEREZ, Tsefaye Richard\Date and Time Signed: 01/04/23 11:41 EST 01-01-2023 Note [facility] Electrophysiology Consult Note Reason for visit: s/p loop insertion for syncope, hospital follow up for CP / cough 01/01/23: patient for follow-up, she been having symptoms of postural dizziness with near syncope she has history of dysautonomia typically sees her dysautonomia clinic she was recently seen at [facility] for chest pain loop monitor has not [...] the Heart and Vascular Center at the [facility] for an evaluation of autonomic dysfunction. Chief [...] told needed a PPM . Transferred to [facility] and saw Dr. Michaud, wire brush maker. Echocardiogram done (?inflammation). Discharged. Referred by Covid Clinic at [facility]. Told had autonomic issues PMH: Past Medical History: Diagnosis Date Asthma 1999 Cl[facility]ting disorder ([facility]) 1983 Diabetes mellitus ([facility]) 2020 Disease of thyroid gland 2006 PSH: [...] Estradiol Chest hurt (more content not included)... [facility] 01-01-2023 Note Patient here for [facility] 2 weeks ago for chest pain. Still having episodes [...] All other systems reviewed and are negative. 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 Hx Cesar autoimmune thyroid disease. She underwent an implantable loop recorder for parts counterman cardiac rhythm monitoring due to syncope in June 2022. She failed bupropion. We then added pyridostigmine in July. Chief Complaint: Improved on pyridostigmine. Improved strength. No nausea or diarrhea. Less dizziness. No syncope. Some near syncope. 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 No sustained palpitations. [...] diagnosis was Autonomic dysfunction. 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 Date of Telehealth Visit: The patient was notified that using 3rd republican telecommunication application (e.g., Elderscan) is not HIPPA compliant and may carry some privacy risks. The visit was conducted npjv-os-iyiv with the use of audio and video [...] to pyridostigmine without ill effects 2. Chronic wgmf-AGMUK-83 syndrome 3. Syncope and collapse No syncope Continue to monitor with ILR. Discussed use of symptom recordings to help identify any rhythm associated with her symptoms RTC yearly [facility] 10-02-2022 Note HNO ID: [id number] Author: Fuentes Amaral MD Service: ? Author Type: Physician Type: Progress Notes Filed: 10/02/2022 9:55 AM Note Text: HEMATOLOGY FOLLOW UP October 02, 2022 (Munir) Some elements in this clinic note that are critical to medical decision making have been carefully reviewed and included from a prior clinic note dated:April 17, 2022 (milena) AND April 03, 2022 (genesispat) PCP and other physicians involved in [...] arms. Figers an (more content not included)... [facility] 10-02-2022 Instructions Fuentes Amaral MD - 10/02/2022 9:51 AM EDT Continue Amicar prior to dentist appointment. RTC in 12 months - cbc, cmp documented in this encounter [facility] 10-02-2022 History of Present illness Narrative Images from the original note were not included. HEMATOLOGY FOLLOW UP October 02, 2022 (genesispat) Some elements in this clinic note that [...] no recommendations. 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 Fuentes Amaral MD, CPE Hematology and Oncology Services Provided at: [employer], [place] CC: Cas Cronin documented in this encounter [facility] 09-05-2022 Hospital Discharge instructions Patient Education 09/05/2022 09:06:17 Kidney Stones, Svfv-vo-Qnbn Kidney Stones Kidney stones are rock-like masses [...] Follow these instructions at home: Medicines Take scrb-ofs-wxkvgqe and prescription medicines only as told by [...] provider. Document Revised: 09/26/2021 Document Reviewed: 09/26/2021 HandMinder Patient Education 2022 [employer]. Follow Up Care 02/28/2022 09:04:41 With:LORAINE RUBALCAVA PA-C, URL Address: [address] [facility] 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 Post Covid POTS. 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 We evaluated her as a new patient [...] diagnosis was Autonomic dysfunction. Diagnoses of Chronic cumx-CCXNB-19 syndrome, Orthostatic intolerance, Celiac disease, and Implantable loop recorder present were also pertinent to this visit. Problem List Items Addressed This Visit Nervous Autonomic dysfunction - Primary Relevant Medications pyridostigmine (Mestinon) 60 mg tablet Orthostatic intolerance Circulatory Implantable loop recorder present Other Chronic xxrm-JTJVT-89 syndrome Other Visit Diagnoses Celiac disease Pyridostigmine. [...] if they experience sudden episodes of hypotension. [facility] 07-04-2022 Note [place] Electrophysiology Consult Note Reason for visit: check [...] the Heart and Vascular Center at the [facility] for an evaluation of autonomic dysfunction. Chief [...] told needed a PPM . Transferred to [facility] and saw Dr. Michaud, wire brush maker. Echocardiogram done (?inflammation). Discharged. Referred by Covid Clinic at [facility]. Told had autonomic issues PMH: [...] incidence of candid (more content not included)... [facility] 07-04-2022 Note Patient here for wou nd check s/p loop recorder insertion on 06/27/[address] Cronin. [facility] 06-27-2022 Note LOOP IMPLANT PROCEDU RE NOTE DATE OF PROCEDURE: 06/27/22 PERFORMING PHYSICIAN: Dr. Stephon Cronin WAREHOUSE LOGISTICS COORDINATOR: INDICATIONS FOR PROCEDURE: CONSENT: Patient LOCATION: EP [...] the sternum on the left using the Optireno tool. The loop recorder was then injected [...] 7 days. Stephon Cronin MD Cardiac Electrophysiology. [facility] 06-27-2022 Note Patient: Leana rios Procedure Information Date/Time: 06/27/22 0830 Procedure: Loop insertion Location: [facility] SPECIAL NEEDS BUS DRIVER 1 EP / [facility] (Cath) Providers: Stephon Cronin MD [...] discussed with patient who. 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 Chief [...] told needed a PPM . Transferred to [facility] and saw Dr. Michaud, wire brush maker. Echocardiogram done (?inflammation). Discharged. Referred by [facility]. Told had autonomic issues Seen at [facility] 2021: Head upright tilt. No 'POTS . Non diagnostic. Possible autonomic dysfunction. Recurrent lung infections since Covid. Found bleeding disorder at [facility]. No medication. Review of Systems Constitutional: Positive [...] node swelling. Chest. Has followup, follows with [facility] Objective Physical Exam Assessment/Plan The primary encounter [...] ANS. Our research (Abel et. al, 2019 JAHA) and others have identified autoantibodies to autonomic [...] currently enrolling pa (more content not included)... [facility] 05-03-2022 Miscellaneous Notes Images from the original note were not included. documented in this encounter [facility] 04-26-2022 Note HNO ID: [id number] Author: Bhargavi Saldana PA-C Service: ? Author Type: Physician Broommaker Type: Progress Notes Filed: 04/26/2022 1:17 PM Note Text: Headache Center - Follow up Virtual Visit During this COVID-19 pandemic, patient's headache clinic evaluation was scheduled as a virtual visit using the following platform Zoom - patient currently located in [place] Leana Tran was identified by name and [...] visit. Either the patient or their legal regional sales representative has been informed of the risks [...] Hypothyroid IBS (i (more content not included)... [facility] 04-26-2022 History of Present illness Narrative Headache Center - Follow up Virtual Visit During this COVID-19 pandemic, patient's headache clinic evaluation was scheduled as a virtual visit using the following platform Zoom - patient currently located in [place] Leana Tran was identified by name and [...] visit. Either the patient or their legal regional sales representative has been informed of the risks [...] thrombosis. Unremarkable MRA brain and MRA neck. Visual Super[facility] Transcribe Date/Time: Mar 31 2016 2:40P [...] change which could potentially contribute to headache. Visual Supervisor: [facility] Transcribe Date/Time: Jun 27 2021 3:07P Dictated [...] # 1.10 - 3.70 k/uL 1.67 Absolute [place] # 0.10 - 1.20 k/uL 0.37 Absolute Eos # 0.00 - 0.44 k/uL 0.19 Basophils Absolute 0.00 - 0.20 k/uL 0.04 Absolute Immature Granulocyte 0.00 - 0.30 k/uL 0.04 Review of Systems: Review of system: unchanged from the previous visit (sleep patterns, mood, energy, appetite, stress, exercising). Physical Examination: Vital Signs: LMP 2015 General: well appearing, in no acute distress, alert Pain Behaviors: no pain behaviors observed Neurological: Mental Status: Alert and oriented to person, place and time. Affect is normal. Speech is spontaneous and fluent without dysarthria. Short and parts counterman memory, cognition and general fund of knowledge [...] been previously approved for an Oral Calcitonin Gene-Related Peptide Receptor Antagonist (GEPANT) Rimegepant for the [...] 15 minutes Bhargavi Saldana PA-C Headache Section [facility] April 26, 2022 documented in this encounter [facility] 04-17-2022 Note HNO ID: [id number] Author: Fuentes Amaral MD Service: ? Author [...] Time Spent: 5 minutes Fuentes Amaral MD [facility] 04-17-2022 Instructions Fuentes Amaral MD - 04/17/2022 5:31 PM EDT Keep prior appointment September documented in this encounter [facility] 04-17-2022 History of Present illness Narrative AMBULATORY TELEPHONE VISIT Leana Tran has consented [...] Fuentes Amaral MD documented in this encounter [facility] 04-10-2022 Note HNO ID: [id number] Author: Meena Grissom MD Service: ? Author Type: Physician Type: Progress Notes Filed: 04/11/2022 3:50 PM Note Text: [facility] Virtual Visit Follow up/ Established patient visit Date of last visit : 11/16/2021 Interval history : Here for follow up for KATELIN and restless legs She had recent hospitalization at [facility], was advised to switch to bilevel she [...] or near accidents due to drowsy drivin [place] Sleepiness Scale 11/13/2021 04/09/2022 Score 7 (No [...] mg tabletTake 10- (more content not included)... [facility] 04-03-2022 Note HNO ID: [id number] Author: Fuentes Amaral MD Service: ? Author [...] rashes Breaking ou (more content not included)... [facility] 04-03-2022 Instructions Fuentes Amaral MD - 04/03/2022 11:06 AM EST Platelet electron microscopy pending drawn Call results when available - anticipate 2 weeks Consider functional medicine referral for DM and PCOS Keep appointment with Dr. Stephon Cronin's group for POTS Trial of Amicar prior to dentist appointment. documented in this encounter [facility] 04-03-2022 History of Present illness Narrative Images from the original note were not included. 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 Fuentes Amaral MD, CPE Hematology and Oncology Services Provided at: [employer], [place] CC: Cas Cronin documented in this encounter [facility] 04-03-2022 Nurse Note Patient is still bruising. Elizabeth Rodriges MA documented in this encounter [facility] 02-27-2023 Miscellaneous Notes Images from the original note were not included. documented in this encounter [facility] 03-21-2022 Miscellaneous Notes Received call from pt stating she was not able to get her PLT lab test done in [place] d/t them no longer doing them on or fridays so she needs to move out her appt with Dr Salas so she has time to try again to get lab done. Pt transferred to first front ventilator to reschedule f/u appt. Yancy Cook RN documented in this encounter [facility] 02-28-2022 Hospital Discharge instructions Patient Education 02/28/2022 08:38:24 Urethral Stricture Urethral [...] reconstructed. Follow these instructions at home: Take wawy-prp-lizuhtd and prescription medicines only as told by [...] 02/18/2016 Document Revised: 09/04/2018 Document Reviewed: 09/04/2018 HandMinder Patient Education 2020 [employer]. Follow Up Care 12/22/2021 14:08:59 With:LORAINE RUBALCAVA PA-C, URL Address: [address] [facility] [place] [address] When: Unknown [facility] 02-27-2022 Note HNO ID: [id number] Author: Tesfaye Whitman RPh Service: ? Author Type: Pharmacist Type: Progress Notes Filed: 02/27/2022 10:33 AM Note Text: Refill Authorization Consent Leana Tran was encountered by text or [employer]hart message to obtain consent for pharmacist managed refill authorization. Patient gives consent to the authorization of prescriptions by a pharmacist. Tesfaye Whitman RPh 02/27/2022 [facility] 02-27-2022 History of Present illness Narrative Refill Authorization Consent Leana Tran was encountered by text or [employer]hart message to obtain consent for pharmacist managed refill authorization. Patient gives consent to the authorization of prescriptions by a pharmacist. Tesfaye Whitman RPh 02/27/2022 documented in this encounter [facility] 02-24-2022 Miscellaneous Notes PA submitted via coverAudiolifemeds. Kurt TRAN ([place]: [id number]) Your information has been submitted to [facility]. To check for an updated outcome later, reopen this PA request from your dashboard. If [facility] has not responded to your request within 24 hours, contact [facility] at . If you think there may be a problem with your PA request, use our live chat feature at the bottom right. Vikash Oreilly RN February 24, 2022 3:16 PM documented in this encounter [facility] 02-20-2022 Miscellaneous Notes Ok with me Informed Lindsey of Dr Salas's response. Lindsey states that [facility] will only except if pt was drawn on and pt was drawn on Sunday so they are sending it out today to [facility], unless Dr Salas would like pt to come back in for a redraw so it can be sent to [facility]. Yancy Cook RN [facility] would be good. Received call from Melodie at [facility] in [place] stating pt had her platelet transmission lab done there but it is a lab test that they send out to other labs and they wanted to know if Dr Salas has a preference on what lab they send it to d/t different labs running the test different ways. ZACH: Please advise. Yancy Cook RN documented in this encounter [facility] 02-17-2022 Miscellaneous Notes Records faxed to Dr. Cronin. Pt would like referral sent to Stephon Cronin MD @ [facility]. Lauren, will you please fax records when order is signed? Demo in your box, thanks! PSS: Please set pt up with referral to her preferred wire brush maker. Thank you. Yancy Cook RN Received call from pt stating Dr Salas told her to see wire brush maker but their office needs a referral. ZACH: Order pending, please review and sign. Yancy Cook RN documented in this encounter [facility] 02-13-2022 Note HNO ID: [id number] Author: Meena Grissom MD Service: ? Author Type: Physician Type: Progress Notes Filed: 02/13/2022 8:31 PM Note Text: Discussed with scheduling, appointment will be rescheduled. Patient logged in late- had technical issues with Zoom. [facility] 02-13-2022 History of Present illness Narrative Discussed with scheduling, appointment will be rescheduled. Patient logged in late- had technical issues with Zoom. documented in this encounter [facility] 02-10-2022 Note HNO ID: [id number] Author: Fuentes Amaral MD Service: ? Author [...] involved in patient's care: Cas Dowell (PCP), aRjinder Collins (surgery), Rubens Tim (ObGyn), DIAGNOSIS: Undiagnosed [...] on continued hormonal cycles continuing despite hysterectomy causin (more content not included)... 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 Fuentes Amaral MD, CPE Hematology and Oncology Services Provided at: [employer], [place] CC: Cas Dowell documented in this encounter [facility] 02-01-2022 Miscellaneous Notes Images from the original note were not included. documented in this encounter [facility] 01-23-2022 Hospital Discharge instructions Patient Education 01/23/2022 13:55:42 [facility] - Cystoscopy [...] Up Care 12/22/2021 14:21:18 With:LORAINE RUBALCAVA Address: [address] [place] [address] [facility] (1) When:6 weeks Comments:Call for followup appointment in about six weeks. As discussed, PONCE Hargrove can further follow up on the left kidney abnormality noted on the kidney ultrasound. 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 [facility] 01-16-2022 Note HNO ID: [id number] Author: Bhargavi Saldana PA-C Service: ? Author Type: Physician Broommaker Type: Progress Notes Filed: 01/16/2022 8:58 AM Note Text: Headache Center - Follow up Virtual Visit During this COVID-19 pandemic, patient's headache clinic evaluation was scheduled as a virtual visit using the following platform Zoom - patient currently located in [place] Leana Tran was identified by name and [...] Palpitations Platelet di (more content not included)... [facility] 01-16-2022 History of Present illness Narrative Headache Center - Follow up Virtual Visit During this ID- pandemic, patient's headache clinic evaluation was scheduled as a virtual visit using the following platform Zoom - patient currently located in [place] Leana Tran was identified by name and [...] thrombosis. Unremarkable MRA brain and MRA neck. Visual Supervisor: [facility] Transcribe Date/Time: Mar 31 2016 2:40P Dictated [...] change which could potentially contribute to headache. Visual Supervisor: [facility] Transcribe Date/Time: Jun 27 2021 3:07P Dictated [...] visit due to nature of virtual visit. [facility] 2015 General: well appearing, in no acute distress, alert Pain Behaviors: no pain behaviors observed Neurological: Mental Status: Alert and oriented to person, place and time. Affect is normal. Speech is spontaneous and fluent without dysarthria. Short and parts counterman memory, cognition and general fund of knowledge [...] been previously approved for an Oral Calcitonin Gene-Related Peptide Receptor Antagonist (GEPANT) Rimegepant for the [...] 10 minutes Bhargavi Saldana PA-C Headache Section [facility] January 16, 2022 documented in this encounter [facility] 01-02-2022 Note HNO ID: [id number] Author: Jenny Borden Service: ? Author Type: ? Type: Progress Notes Filed: 01/02/2022 4:24 AM Note Text: Sleep Study Check-In Documentation Date: January 02, 2022 Name: Leana Tran Patient was accompanied by Self. Location: [place] Latex allergy: Yes Tape allergy: No Current medications were reviewed with the patient:Yes Sleep aid taken by patient for the sleep study: [place] of sleep aid: Not Applicable Procedure was explained to the patient and all questions were answered. PAP treatment discussed and shown to patient: Yes If PAP used enter mask info: n/a Chin Sharp Used No --------- Knowledge Program (KP): KP was not completed in epic by patient and accepted Study type: Polysomnogram Adverse Event: No (If yes create a new abstract) SERS Event: No Comments: Patient was advised to follow up with their ordering provider regarding test results Jenny Borden [facility] 01-02-2022 History of Present illness Narrative Sleep Study Check-In Documentation Date: January 02, 2022 Name: Leana Tran Patient was accompanied by Self. Location: [place] Latex allergy: Yes Tape allergy: No Current medications were reviewed with the patient:Yes Sleep aid taken by patient for the sleep study: [place] of sleep aid: Not Applicable Procedure was explained to the patient and all questions were answered. PAP treatment discussed and shown to patient: Yes If PAP used enter mask info: n/a Chin Sharp Used No Knowledge Program (KP): KP was not completed in epic by patient and accepted Study type: Polysomnogram Adverse Event: No (If yes create a new abstract) SERS Event: No Comments: Patient was advised to follow up with their ordering provider regarding test results Jenny Borden documented in this encounter [facility] 2021 Evaluation + Plan note Diagnostic Tests PendingUrine Cytology ([facility]) 12/21/21 [facility] 2021 Hospital Discharge instructions Patient Education 2021 10:13:39 Hematuria, Adult Hematuria, [...] Follow these instructions at home: Medicines Take kzhr-lci-vxhnsly and prescription medicines only as told by [...] or the blood stops without treatment. Take fyum-axd-lrflrti and prescription medicines only as told by your health care provider. Drink enough fluid to keep your urine clear or pale yellow. This information is not intended to replace advice given to you by your health care provider. Make sure you discuss any questions you have with your health care provider. Document Released: 01/22/2006 Document Revised: 06/18/2019 Document Reviewed: 02/24/2017 [employer] Patient Education 2020 [employer] Follow Up Care 11/28/2021 10:05:42 With:[facility] Matthew Address: 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 Leana Tran's bleeding disorders panel through [employer] [facility] was non-diagnostic or negative for a pathogenic variant. 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 This is a common polymorphism in the general population present in ~10% of individuals of white ancestry and ~1/3 of those of [place] ancestry. This polymorphism is not expected to contribute to disease risk for the patient. Please see Xirrus message for further discussion. CARINE Carrillo Licensed, Certified Genetic Counselor Epic CC: Dr. Fuentes Craig documented in this encounter [facility] 12-15-2021 Note HNO ID: [id number] Author: Keira Harper Service: ? Author Type: ? Type: Progress Notes Filed: 01/03/2022 2:00 PM Note Text: ACTIGRAPHY DEVICE # [id number] Date shipped out 12/15/2021 [employer] MAIL OUT TRACKING NUMBER [id number] [employer] RETURN TRACKING NUMBER [id number], Amber [facility] 12-15-2021 History of Present illness Narrative ACTIGRAPHY DEVICE # [id number] Date shipped out 12/15/2021 [employer] MAIL OUT TRACKING NUMBER [id number] [employer] RETURN TRACKING NUMBER [id number], Amber documented in this encounter [facility] 12-02-2021 Note HNO ID: [id number] Author: Ofelia Nelson Service: ? Author Type: ? Type: Progress Notes Filed: 12/02/2021 9:32 AM Note Text: UNIVERSAL PROTOCOL / SAFETY CHECKLIST Procedure to be performed: [place] for Syncope and Autonomic Disorders: TILT Sign [...] Final Report for Diagnosis. IV discontinued at 927 by . Staff involved in procedure: Heavenly Thomas RN; Ofelia Allen RN Procedure Finish Time: 933 [facility] 12-02-2021 History of Present illness Narrative UNIVERSAL PROTOCOL / SAFETY CHECKLIST Procedure to be performed: [place] for Syncope and Autonomic Disorders: TILT Sign [...] Finish Time: 933 documented in this encounter [facility] 12-01-2021 Miscellaneous Notes Attempted to contact the patient. Left voice message. Filomena MARIE ----- Message from Micheal Perez MD sent at 11/30/2021 8:33 PM EDT ----- Regarding: Event monitor results. Please call with results. Micheal Perez MD November 30, 2021 8:33 PM documented in this encounter [facility] 11-18-2021 Note HNO ID: [id number] Author: Fuentes Amaral MD Service: ? 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 Her step-father has also . Updated Visit, November 10, 2021: Leana is 35 yo and is having genetic testing done to ascertain a sera (more content not included)... [facility] 11-18-2021 Instructions Fuentes Amaral MD - 11/18/2021 2:09 PM EDT 1. RTC and Repeat exam in 3 months - no labs 2. Review platelet genetics on return. documented in this encounter [facility] 11-18-2021 History of Present illness Narrative Images from the original note were not included. 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 Fuentes Amaral MD, CPE Hematology and Oncology Services Provided at: [employer], [place] CC: Cas Dowell documented in this encounter [facility] 11-16-2021 Instructions Meena Grissom MD - 11/16/2021 1:41 PM [...] insurance coverage. Contact your Durable Medical Equipment ([employer]) company for new supplies as needed. Encouraged increased CPAP compliance -PAP titration polysomnogram requested to assess optimum PAP therapy for KATELIN -PAP nap procedure requested to help address mask interface issues To schedule your sleep study please call the [facility] at [phone]. The [phone] phone number will be answered by the [...] If you work rotating shifts, ask your blood bank business manager to schedule a natural, clockwise rotation. [...] A longer nap before reporting for a shift supervisor is also beneficial. Exposure to bright light on the job can improve alertness during shift supervisor work. Arrange for someone to pick you up after a shift supervisor, or take a bus or cab home. [...] for insomnia. The cost is $40. Use www.CHAINels which to access the [facility] Well[facility] website to purchase the program ( [...] provider and give them the CPT code: 26861 You will be asked to wear the [...] about your actigraphy device, please call the donor technician at: [phone] ( During Hours: 8am-4:30pm) ? -Discussed pathophysiology of Sleep paralysis, and possible triggering factors which include sleep deprivation, untreated obstructive sleep apnea. Other possible etiologies include circadian shift work,anxiety disorders and medications. - Follow up in 2 months documented in this encounter [facility] 10-12-2022 Miscellaneous Notes Images from the original note were not included. Images from the original note were not included. documented in this encounter [facility] 11-16-2021 Note HNO ID: [id number] Author: Meena Grissom MD Service: ? Author Type: Physician Type: Progress Notes Filed: 11/16/2021 2:37 PM Note Text: [facility] New Patient Evaluation This [...] on CPAP , her physician is at [facility]. Has a Resmed device, uses it [...] or near accidents due to drowsy drivin [place] Sleepiness Scale 11/13/2021 Score 7 (No daytime [...] 50. Five p (more content not included)... [facility] 11-16-2021 History of Present illness Narrative Images from the original note were not included. [facility] New Patient Evaluation This [...] in, or assisted with the encounter were: MD Leana Potter HPI: Leana Tran is a 35 year [...] on CPAP , her physician is at [facility]. Has a Resmed device, uses it [...] or near accidents due to drowsy drivin [place] Sleepiness Scale 11/13/2021 Score 7 (No daytime [...] (Discontinued) PRIOR SLEEP STUDIES: Sleep centre at [place] (report not available at time of consultation) [...] uncontrolled Hypertension Mother Heart Attack Mother [place] at age 51 Cardiomyopathy Mother at age [...] If you work rotating shifts, ask your blood bank business manager to schedule a natural, clockwise rotation. [...] A longer nap before reporting for a shift supervisor is also beneficial. Exposure to bright light on the job can improve alertness during shift supervisor work. Arrange for someone to pick you up after a shift supervisor, or take a bus or cab home. [...] for insomnia. The cost is $40. Use www.CHAINels which to access the [facility] website to purchase the program ( [...] but not within 4 hours of bedtime. [facility] on 11/16/21 ACTIGRAPHY TESTING PAP NAP PSG (CPAP, BILEVEL, ASV) PAP TITRATION PSG (CPAP, BIPAP, ASV) FERRITIN BLD IRON + TIBC Meena Grissom MD I spent a total of 50 minutes on the date of the service which included preparing to see the patient, cdlw-oa-lpud patient care, performing a medically appropriate examination, counseling and educating the patient/family/caregiver and ordering medications/devices. documented in this encounter [facility] 11-15-2021 Miscellaneous Notes Images from the original note were not included. documented in this encounter [facility] 11-12-2021 Note HNO ID: [id number] Author: Fuentes Amaral MD Service: ? Author [...] Time Spent: 10 minutes Fuentes Amaral MD [facility] 11-12-2021 History of Present illness Narrative AMBULATORY TELEPHONE VISIT Leana Tran has consented [...] Fuentes Amaral MD documented in this encounter [facility] 11-07-2021 Miscellaneous Notes Order for nebulizer supplies resent to [employer]. Call to them inquiring about any additional information they may need. Landen Clark APRN.LANDCARE FACILITATOR documented in this encounter [facility] 11-07-2021 Miscellaneous Notes Contacted [employer]. Order has not been received. Discussed with Javier from [facility]. Order is currently being processed. Filomena MARIE documented in this encounter [facility] 11-03-2021 Note HNO ID: [id number] Author: Fuentes Amaral MD Service: ? Author [...] workup. PLAN: 1. Need Mammogram results from [place] 2. Proceed with genetic testing for platelet [...] Asthma - Depression (more content not included)... [facility] 11-03-2021 Instructions Fuentes Amaral MD - 11/03/2021 11:38 AM EDT 1. Need Mammogram results from [place] 2. Proceed with genetic testing for platelet disorder 3. Call next week to review mammogram results documented in this encounter [facility] 11-03-2021 History of Present illness Narrative Images from [...] workup. PLAN: 1. Need Mammogram results from [place] 2. Proceed with genetic testing for platelet [...] which included preparing to see the patient, vxpk-bq-zjzq patient care, completing clinical documentation, obtaining and/or reviewing separately obtained history, performing a medically appropriate examination, counseling and educating the patient/family/caregiver, ordering medications, tests, or procedures, independently interpreting results (not separately reported) and communicating results to the patient/family/caregiver. Fuentes Amaral MD, CPE Hematology and Oncology Services Provided at: [employer], [place] CC: Cas Dowell documented in this encounter [facility] 10-31-2021 Note HNO ID: [id number] Author: Landen Clark APRN.LANDCARE FACILITATOR Service: ? Author Type: Nurse Practitioner Type: Progress Notes Filed: 10/31/2021 2:06 PM Note Text: Pt provided serial number for machine. I have connected ccf to the machine. I discussed need to wear cpap as much as able. She stated that she is having issues based on her migraines. We discussed trying to use this as much as able. Landen Clark APRN.LANDCARE FACILITATOR [facility] 10-31-2021 Note HNO ID: [id number] Author: Landen Clark APRN.LANDCARE FACILITATOR Service: ? Author Type: Nurse Practitioner Type: Progress Notes Filed: 10/31/2021 2:03 PM Note Text: [facility] Virtual Follow-up Evaluation This is a virtual visit using B[employer]heAmerica video visit. It required patient-provider interaction for [...] an sma group (more content not included)... [facility] 10-30-2021 Miscellaneous Notes I don't think I need labs for her. If needed, please add lab orders for appointment on 11/03/21. Sharon Peterson Ma documented in this encounter [facility] 10-24-2021 Note HNO ID: [id number] Author: Cindy Rushing MD Service: ? Author Type: Physician Type: Progress Notes Filed: 10/24/2021 12:28 PM Note Text: VIRTUAL VISIT PROGRESS NOTE This is a virtual visit using [employer] video visit. It required patient-provider interaction for [...] axillary lymphadenopathy. She is also following in [facility] clinic. She has noticed a rash that [...] controlled, she is following with Pulmonary and [facility] clinic She recently received iodinated contrast with pre-medication and was able to tolerate As per prior HPI: Chronic rhinitis Sinus/lung infections Longstanding history of recurrent pneumonia 1-2 times per year and recurrent sinus infections. Had sinus surgery which helped reduce sinus infections- however she has had 2 infections in the last 2 months. Immunodeficiency evaluation performed by an take off worker in [place] showed protective strep pneumo titers after vaccination [...] at the ER Last December saw an take off worker- skin testing was negative to environmental allergies [...] managed by her family medicine physician and compliance associate. Has had 0 ER, hospitalization and ICU [...] cyst of pituitary (more content not included)... [facility] 10-24-2021 History of Present illness Narrative VIRTUAL VISIT PROGRESS NOTE This is a virtual visit using [employer] video visit. It required patient-provider interaction for [...] axillary lymphadenopathy. She is also following in [facility] clinic. She has noticed a rash that [...] controlled, she is following with Pulmonary and [facility] clinic She recently received iodinated contrast with pre-medication and was able to tolerate As per prior HPI: Chronic rhinitis Sinus/lung infections Longstanding history of recurrent pneumonia 1-2 times per year and recurrent sinus infections. Had sinus surgery which helped reduce sinus infections- however she has had 2 infections in the last 2 months. Immunodeficiency evaluation performed by an take off worker in [place] showed protective strep pneumo titers after vaccination [...] at the ER Last December saw an take off worker- skin testing was negative to environmental allergies [...] managed by her family medicine physician and compliance associate. Has had 0 ER, hospitalization and ICU [...] uncontrolled Hypertension Mother Heart Attack Mother [place] at age 51 Cardiomyopathy Mother at age [...] or contact dermatitis- advise follow-up with local [employer] Allergic rhinitis, unspecified seasonality, unspecified trigger Comment/Plan: Well-controlled, continue Flonase and oral antihistamine Moderate persistent asthma without complication Comment/Plan: Controlled, continue follow-up with Pulmonary and Covid-19 [facility] Cindy Rushing MD documented in this encounter [facility] 10-20-2021 Note HNO ID: [id number] Author: Micheal Perez MD Service: ? Author Type: Physician Type: Progress Notes Filed: 10/20/2021 5:28 PM Note Text: [facility] Department of Cardiac Surgery VIRTUAL VIDEO VISIT [...] HX 2011 REMOVAL GALLBLADDER TUBAL LIGATION HX FAMILY HISTORY Problem Relation Age of Onset Diabetes Mother uncontrolled Hypertension Mother Heart Attack Mother [place] at age 51 Cardiomyopathy Mother at age [...] mouth daily at (more content not included)... [facility] 10-20-2021 Note HNO ID: [id number] Author: Micheal Perez MD Service: ? Author [...] Monitor: Extended Monitoring-[employer] Patch Enrollment Dates: 11/09/2021-11/22/2021 [facility] 10-20-2021 History of Present illness Narrative Heart[facility] V[facility] Department of Cardiac Surgery VIRTUAL VIDEO VISIT [...] uncontrolled Hypertension Mother Heart Attack Mother [place] at age 51 Cardiomyopathy Mother at age [...] dysfunction. I suggested we give her a 2-week event monitor and also do a complete [...] 5:26 PM This note was generated using Sendbloom voice recognition system. Please excuse any typographical errors. I spent 30 minutes with the patient; greater than 50% of the time was spent in counselling and co-ordinating the care based on my impression and plan above. documented in this encounter [facility] 10-19-2021 Note HNO ID: [id number] Author: Bhargavi Saldana PA-C Service: ? Author Type: Physician Broommaker Type: Progress Notes Filed: 10/19/2021 2:41 PM [...] gland Asthma Bulg (more content not included)... [facility] 10-19-2021 Instructions Bhargavi Saldana PA-C - 10/19/2021 2:31 PM EDT Consider restart Botox PREEMPT Protocol Discontinue Emgality Start Ajovy - once monthly - wait until 11/10 to inject the first dose [facility] Delivery Pharmacy: [phone] Consider aimovig or vyepti Please follow up in 3 months or sooner if needed documented in this encounter [facility] 10-19-2021 History of Present illness Narrative Headache Center - Follow up Virtual Visit During this COVID-19 pandemic, patient's headache clinic evaluation was scheduled as a virtual visit using the following platform Nayjoesph Tran was identified by name and and [...] migraine headache days/month: 10 Migraine headache severity: 10 Number of NON-migraine headache days/month: 15 Number [...] fluticasone (FLONASE) 50 mcg/actuation nasal spray^Use 1 [place] in each nostril twice daily.^Disp: 3 Each^Rfl: [...] thrombosis. Unremarkable MRA brain and MRA neck. Visual Supervisor: [facility] Transcribe Date/Time: Mar 31 2016 2:40P [...] change which could potentially contribute to headache. Visual Supervisor: [facility] Transcribe Date/Time: Jun 27 2021 3:07P Dictated [...] Abs Lymph 1.00 - 4.00 k/uL 1.45 [place]% % 4.4 Abs [place] <0.87 k/uL 0.30 [place]% % 2.5 Abs [...] visit due to nature of virtual visit. [facility] 2015 General: well appearing, in no acute distress, alert Pain Behaviors: no pain behaviors observed Neurological: Mental Status: Alert and oriented to person, place and time. Affect is normal. Speech is spontaneous and fluent without dysarthria. Short and parts counterman memory, cognition and general fund of knowledge [...] with Ajov - she will wait until 10/6/22 to inject first dose. Does not wish [...] 20 minutes Bhargavi Saldana PA-C Headache Section [facility] October 19, 2021 documented in this encounter [facility] 10-14-2021 Note HNO ID: [id number] Author: Dolores Chavarria PSYD Service: ? Author Type: Physician Type: Progress Notes Filed: 10/17/2021 10:05 PM Note Text: [facility] Psychology Progress Note Billing codes: Keisha PSYCHOLOGY: FOLLOW-UP APPOINTMENT PROGRESS NOTE- Virtual Visit Due to the federal emergency declaration and the need for ongoing mental health services, the following visit was completed virtually and informed consent obtained orally to reduce the risk of COVID-19 exposure. Oral consent to services related to virtual visits was obtained after information was sent via B[employer]heAmerica or read to patient if [employer] not available. Leana Tran 10/14/2021 [id number] PROVIDER: Dolores Chavarria PSYD CPT Code: [id number] Virtual PSYTX PT AND/FAMILY 45 MINS Time [...] meditation practice Follow Up: 2 weeks Dolores Chavarria Psy.D. Associate Staff, [facility] 10-14-2021 History of Present illness Narrative [facility] Psychology Progress Note Billing codes: Keisha PSYCHOLOGY: FOLLOW-UP APPOINTMENT PROGRESS NOTE- Virtual Visit Due to the federal emergency declaration and the need for ongoing mental health services, the following visit was completed virtually and informed consent obtained orally to reduce the risk of COVID-19 exposure. Oral consent to services related to virtual visits was obtained after information was sent via [employer] or read to patient if [employer] not available. Leana Tran 10/14/2021 [id number] PROVIDER: Dolores Chavarria PSYD CPT Code: [id number] Virtual PSYTX PT &/FAMILY 45 MINS Time [...] meditation practice Follow Up: 2 weeks Dolores Chavarria Psy.D. Associate Staff, [facility] documented in this encounter [facility] 10-12-2021 Note HNO ID: [id number] Author: Ruth Villaseñor MD Service: ? Author Type: Physician Type: Progress Notes Filed: 10/12/2021 2:42 PM Note Text: Rheumatology Outpatient Clinic Date of Service: 10/12/2021 Patient: Leana Tran Medical Record: [id number] Primary Care Physician: Cas Dowell MD Referring [...] discussed that there is no evidence of rheumatologic/autoimmune/inflamma tory arthritis. Patient-Entered Data PAIN EVALUATION No data [...] Laterality Date ABDOMINAL SURGERY HX 2010 exploration (more content not included)... [facility] 10-12-2021 History of Present illness Narrative Images from the original note were not included. Rheumatology Outpatient Clinic Date of Service: 10/12/2021 Patient: Leana Tran Medical Record: [id number] Primary Care Physician: Cas Dowell MD Referring Provider: DARIO Last Rheumatology visit: 09/21/2021 (with Ruth Villaseñor) [...] discussed that there is no evidence of rheumatologic/autoimmune/inflamma tory arthritis. Patient-Entered Data PAIN EVALUATION No data [...] [place]: Dry eyes Currently menstruating: Hysterectomy in 2020 for menorrhagia Past Medical History PAST MEDICAL [...] uncontrolled Hypertension Mother Heart Attack Mother First NV at age 51 Cardiomyopathy Mother at age [...] (FLONASE) 50 mcg/actuation nasal spray Use 1 [place] in each nostril twice daily. zonisamide (ZONEGRAN) [...] AM (Final result) Impression: IMPRESSION: See Result. Visual Supervisor: ROBER Transcribe Date/Time: Sep 30 2021 2:15P... [...] not the only treatment. Patient education, exercise, self-management skills and alternative therapies are recommended. Certain patient may benefit from Duloxetine, gabapentin or lyrica. In certain cases, a referral to a eating disorder specialist may be required, in patients who [...] Villaseñor MD Rheumatology documented in this encounter [facility] 09-30-2021 History of Present illness Narrative Radiology Service Progress Note PATIENT NAME: Leana [...] 2021 9:53 AM documented in this encounter [facility] 09-27-2021 History of Present illness Narrative PULM FUNCTION SMARTBLOCK: Provider: Landen Clark APRN.LANDCARE FACILITATOR Assisting Tech: Yanira Bryson RRT Spirometry w/BD: 1 DLCO: 1 LV - Box: 1 6 MW: 1 documented in this encounter [facility] 09-22-2021 Miscellaneous Notes Spoke with provider through secure chat-due to triage, worsening symptoms, and time of day sent patient to ED Patient stated that will head to [facility] shortly to be evaluated. Thank you, [...] Landen Clark APRN.MACY documented in this encounter [facility] 09-21-2021 History of Present illness Narrative Images from the original note were not included. Rheumatology Outpatient Clinic Date of Service: 09/21/2021 Patient: Leana Tran Medical Record: [id number] Primary Care Physician: Cas Dowell MD Referring Provider: SELF Last Rheumatology visit: None at [facility] Chief complaint: Consult (Patient states she was at [facility] on 09/19/21, seen Landen Clark APRN. She [...] of Consult (Patient states she was at [facility] on 09/19/21, seen Landen Clark APRN. [...] uncontrolled Hypertension Mother Heart Attack Mother First NV at age 51 Cardiomyopathy Mother at age [...] (FLONASE) 50 mcg/actuation nasal spray Use 1 [place] in each nostril twice daily. zonisamide (ZONEGRAN) [...] repeat CBC, CMP, C3, C4 ordered at [facility]. To evaluate for causes that could contribute to her pain, I will follow CBC with diff, comprehensive metabolic panel,TSH, 25-hydroxy vitamin D, vitamin B12 levels, ordered at [facility]. Additionally, because sleep apnea can cause or [...] not the only treatment. Patient education, exercise, self-management skills and alternative therapies are recommended. Certain patient may benefit from Duloxetine, gabapentin or lyrica. I have low suspicion for autoimmune disease/rheumatologic disease and would recommend PCP to manage her chronic pain. In certain cases, a referral to a eating disorder specialist may be required, in patients who [...] which included preparing to see the patient, mugq-ji-yaeb patient care, completing clinical documentation, obtaining and/or [...] Time: 5:08 PM documented in this encounter [facility] 09-19-2021 Miscellaneous Notes Please help schedule fu visit in 4-6 weeks and testing please. Landen Clark APRN.CNP documented in this encounter [facility] 09-19-2021 Instructions Landen Clark APRN.CNP - 09/19/2021 3:10 PM EDT Welcome to [facility]'s reCOV[facility] Clinic! The 'COV' represents SARS-CoV-2, also [...] results and your current symptoms. - The [facility] Clinic Team documented in this encounter [facility] 09-19-2021 History of Present illness Narrative Images from the original note were not included. COVID [facility] Initial Evaluation Leana Tran presents to [facility] at the request of Sai Perez MD [...] (FLONASE) 50 mcg/actuation nasal spray Use 1 [place] in each nostril twice daily. zonisamide (ZONEGRAN) [...] Palpitation - ICD9: 785.1, ICD10: R00.2 7. CAVANAUGH (dyspnea on exertion) - ICD9: 786.09, ICD10: [...] which included preparing to see the patient, vrzh-ag-qdbp patient care, completing clinical documentation, obtaining and/or reviewing separately obtained history, performing a medically appropriate examination, counseling and educating the patient/family/caregiver, ordering medications, tests, or procedures, communicating with other HCPs (not separately reported), independently interpreting results (not separately reported), communicating results to the patient/family/caregiver, and care coordination (not separately reported). Landen Clark APRN.CNP September 19, 2021 2:07 PM documented in this encounter [facility] 09-16-2021 History of Present illness Narrative [facility] Psychology Progress Note Billing codes: Keisha PSYCHOLOGY: FOLLOW-UP APPOINTMENT PROGRESS NOTE- Virtual Visit Due to the federal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 push/pull is equal. No drift Movement/Coordination Continuous dance-like movement of legs and torso Gait Unable to stand without upper body assistance. Slow station and stride. No festination or retropulsion. Gait is bizarre and cautious. Romberg's sign is absent. Drowsy, intermittently engaged, facial flushing noted. Neurological Exam Assessment & Plan 06/27/2021 - Neuromuscular, Peter Knight APRN.LANDCARE FACILITATOR ASSESSMENT Patient presents today as follow up [...] gradually rise. 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 Peter Knight APRN.CNP documented in this encounter [facility] 06-16-2021 Miscellaneous Notes I spoke with the patient regarding [...] Yan Bass MD documented in this encounter [facility] 06-14-2021 Miscellaneous Notes Pt questions if MG labs are back. (shows seen' in [facility]) Negative results. Also, stopped doxycycline she was taking for sinus infection d/t new sx of bilat LE numbness, rt foot spasms, sensation of heavy body. Continues to have bilat leg spasms and numbness. BP 130-140/70-90. Questions if d/t med or new neuro issue. Leighann Alcazar RN documented in this encounter [facility] 06-14-2021 History of Present illness Narrative Images [...] 7.5 tablets/week. She is following a local ocular care technologist who adjusted dose for her. Most recent [...] which included preparing to see the patient, jblf-if-ghyz patient care, completing clinical documentation, obtaining and/or reviewing separately obtained history, performing a medically appropriate examination, counseling and educating the patient/family/caregiver, ordering medications, tests, or procedures. This note was dictated using Sendbloom speech recognition software and may contain some errors that were a result of the program not accurately transcribing what was dictated. Jackelyn Marques M.D., M.Sc. Attending Ultrasound Tester Endocrinology and Metabolism [facility], [facility] Office: Appointments: documented in this encounter [facility] 06-14-2021 Nurse Note Thank you for choosing the [facility] Department of Endocrinology, Diabetes and Metabolism. Did you know that you need to call 48 hours in advance of your scheduled visit, if you are unable to make your appointment? The Endocrinology and Metabolism [facility] thanks you for your commitment, because patients not showing to their appointment results in a lost opportunity for patients to receive [facility] health care at the [facility]. To Cancel an appointment, please choose one of the following: - Call the Appointment Call Center at [phone] - From [employer], Go to Appointments Cancel Appts If cancelling, consider your need to reschedule to prevent further delays in your care. To Schedule an appointment, please choose one of the following: - Call the Appointment Call Center at [phone] - From [employer], Go to Appointments Request an Appt documented in this encounter [facility] 06-14-2021 History of Present illness Narrative UNIVERSAL [...] of Care Visit completed when applicable. Haily [place] Emg Tech documented in this encounter [facility] 06-10-2021 History of Present illness Narrative HEMATOLOGY [...] CBC and CMP. PT and PTT from 2012 were normal. Other scans reports show an elevated PTT at 36 seconds which corrected after addition of FFP in 2008. She she has significant neurologic and cardiac issues and is being worked up for myasthenia gravis and autonomic dysfunction. She has appointments to see endocrinology, neurology and cardiology at [facility] next week. ROS is negative except that [...] which included preparing to see the patient, hykc-tn-oilh patient care, completing clinical documentation, obtaining and/or reviewing separately obtained history, performing a medically appropriate examination, counseling and educating the patient/family/caregiver, ordering medications, tests, or procedures, independently interpreting results (not separately reported) and communicating results to the patient/family/caregiver. CC: Peng Manley documented in this encounter [facility] 05-31-2021 Miscellaneous Notes Outside medical records received and scanned in for review. documented in this encounter [facility] 05-20-2021 Hospital Discharge instructions Shanna Rivas APRN - CNP - 05/20/2021 [...] cannot be sent through Care Everywhere.Chest Pain (Italian)Abdominal Pain (Italian)documented in this encounter [employer] Phone: 04-16-2021 Hospital Discharge instructions Shanna Rivas APRN - CNP - 04/16/2021 Increase your fluid intake. Follow-up with both PCP and DENTAL INSURANCE COORDINATOR for reevaluation. Take Reglan as prescribed. Talk to your DENTAL INSURANCE COORDINATOR about the left ovarian cyst seen on CT as well as possible mild fluid in your fallopian tube. Take all medications as prescribed. Return to the ER for increased pain, fevers, difficulty breathing, vomiting or new or worsening signs or symptoms. The following attachments cannot be sent through Care Everywhere.Ovarian Cyst: Functional (Italian)Nausea and Vomiting (Italian)documented in this encounter [employer] Phone: 11-01-2020 Hospital Discharge instructions Araseli Barrett MD - 11/01/2020 Continue current [...] through Care Everywhere.Coronavirus Disease (COVID-19): General Info (Italian)documented in this encounter [employer] Phone: 09-06-2020 Note HNO ID: [id number] Author: Lis Moraes MD Service: ? Author [...] - Tolerated procedure well Lis Moraes MD 09-06-2020 Note HNO ID: [id number] Author: Lis Moraes MD Service: ? Author Type: Physician Type: Progress Notes Filed: 09/06/2020 3:10 PM Note Text: PROGRESS NOTE- HEADACHE SERVICE DATE: September 06, 2020 [facility] Participants: patient and provider Requesting [...] in frequency but most importantly in severity, 3/10. It was like that for several years. [...] bleeds - Lavender (more content not included)... Evaluation + Plan note Future Appointments Appointment Date:02/28/2022 08:30:00 AM Scheduled Provider:LORAINE RUBALCAVA PA-C Location:[facility] Appointment Type:URO Office Visit [facility] Evaluation + Plan note Future Appointments Appointment Date:08/30/2022 03:00:00 PM Scheduled Provider:LORAINE RUBALCAVA PA-C Location:[facility] Appointment Type:URO Office Visit [facility] Evaluation + Plan note Future Appointments Appointment Date:09/11/2023 09:00:00 AM Scheduled Provider:LORAINE RUBALCAVA PA-C Location:[facility] Appointment Type:URO Office Visit [facility] Evaluation note Diagnosis Strain of lumbar region, initial encounter- Primary documented in this encounter [employer] Phone: evaluation note* Diagnosis COVID-19- Primary documented in this encounter [employer] Phone: evaluation note* Diagnosis Intractable nausea and vomiting- Primary Persistent vomiting Hydrosalpinx Chronic salpingitis and oophoritis Left ovarian cyst Other and unspecified ovarian cyst documented in this encounter [employer] Phone: [email or web address] note* Diagnosis Chest pain, unspecified type- Primary Abdominal pain, acute, right lower quadrant Abdominal pain, right lower quadrant documented in this encounter [employer] Phone: [email or web address] note* Diagnosis Urticaria- Primary Urticaria, unspecified Moderate persistent asthma with exacerbation Unspecified asthma, with exacerbation documented in this encounter [employer] Phone: [email or web address] note* Diagnosis Coagulopathy (HCC)- Primary Other and unspecified coagulation defects [facility]* Diagnosis Screening for endocrine disorder- Primary Primary hypothyroidism Unspecified hypothyroidism [facility] Diagnosis Screening for endocrine disorder- Primary [facility]* Diagnosis Disorder of autonomic nervous system Unspecified disorder of autonomic nervous system [facility]* Diagnosis Spasm of muscle- Primary Acute nonspecific chest pain with low risk of coronary artery disease documented in this encounter [employer] Phone: evalkzxoif note* Diagnosis Worsening headaches- Primary Headache Maxillary sinus cyst Other diseases of nasal cavity and sinuses Muscle spasms of lower extremity, unspecified laterality Akathisia Abnormal involuntary movements Blurred vision Other specified visual disturbances Chorea Other choreas [facility]* Diagnosis Coagulopathy (HCC)- Primary Other and unspecified coagulation defects 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 [facility]* Diagnosis Screening for endocrine disorder- Primary [facility]* Diagnosis Intractable chronic migraine without aura and without status migrainosus- Primary Chronic migraine without aura, with intractable migraine, so stated, without mention of status migrainosus Abnormal involuntary movement Abnormal involuntary movements [facility]* Diagnosis Allergy, initial encounter- Primary Headaches documented [facility]* Diagnosis Bleeding disorder (HCC)- Primary Unspecified hemorrhagic conditions Coagulopathy (HCC) Other and unspecified coagulation defects 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 [facility]* Diagnosis Screening for endocrine disorder [facility] Diagnosis 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) Unspecified hemorrhagic conditions [facility] History of COVID-19- Primary Symptomatic bradycardia Other specified cardiac dysrhythmias Blood pressure instability Other abnormal clinical finding [facility] Diagnosis Angioedema, initial encounter- Primary Urticaria Urticaria, unspecified Hoarseness of voice Dysphonia Allergic rhinitis, unspecified seasonality, unspecified trigger Adverse effect of drug, initial encounter Allergic reaction to contrast material, initial encounter Adverse food reaction, initial encounter Moderate persistent asthma without complication Unspecified asthma Gastroesophageal reflux disease, unspecified whether esophagitis present [facility] Diagnosis Screening for endocrine disorder Muscle spasms of lower extremity, unspecified laterality Akathisia Abnormal involuntary movements [facility] Diagnosis Chronic migraine without aura, intractable, without status migrainosus- Primary [facility]* Diagnosis Depression, unspecified depression type- Primary Anxiety Anxiety state, unspecified Intractable chronic migraine without aura and without status migrainosus Chronic migraine without aura, with intractable migraine, so stated, without mention of status migrainosus Abnormal involuntary movement Abnormal involuntary movements [facility] Diagnosis White coat syndrome with hypertension- Primary [facility] Diagnosis Intractable chronic migraine without aura and without status migrainosus Chronic migraine without aura, with intractable migraine, so stated, without mention of status migrainosus Abnormal involuntary movement Abnormal involuntary movements [facility] Diagnosis Chronic RLQ pain- Primary Abdominal pain, right lower quadrant Diastasis recti Diastasis of muscle [facility] Diagnosis Chronic RLQ pain- Primary Abdominal pain, right lower quadrant [facility] Diagnosis Symptomatic bradycardia Other specified cardiac dysrhythmias Blood pressure instability Other abnormal clinical finding History of COVID-19 [facility] Diagnosis White coat syndrome without diagnosis of hypertension- Primary Elevated blood pressure reading without diagnosis of hypertension [facility] Diagnosis Diffuse pain- Primary Generalized pain Decreased activity tolerance Physical deconditioning Debility, unspecified Orthostatic intolerance [facility] Diagnosis Long COVID- Primary Diffuse pain Generalized pain Decreased activity tolerance PTSD (post-traumatic stress disorder) Posttraumatic stress disorder [facility]* Diagnosis Allergic reaction, initial encounter- Primary documented in this encounter [facility] [employer] Work Phone: evaluation note* Diagnosis Depression, unspecified depression type- Primary Anxiety Anxiety state, unspecified Abnormal involuntary movement Abnormal involuntary movements [facility]* Diagnosis Post-acute sequelae of COVID-19 (PASC)- [...] of left axilla [facility]* Diagnosis Bone pain- Primary Disorder of bone and cartilage, unspecified Malaise and fatigue Other malaise and fatigue Lymphadenopathy Enlargement of lymph nodes [facility]* Diagnosis 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 [facility]* Diagnosis History of COVID-19- Primary Post-acute [...] joint, multiple sites [facility]* Diagnosis History of COVID-19 Post-acute sequelae [...] joint, multiple sites [facility] History of COVID-19 Post-acute sequelae [...] joint, multiple sites [facility] Diagnosis 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 [facility] Diagnosis History of COVID-19 Post-acute sequelae [...] joint, multiple sites [facility] Diagnosis Malaise and fatigue- Primary Other malaise and fatigue Lymphadenopathy Enlargement of lymph nodes [facility] Diagnosis Depression, unspecified depression type- Primary Anxiety Anxiety state, unspecified Abnormal involuntary movement Abnormal involuntary movements [facility] Diagnosis Chronic migraine without aura, intractable, without status migrainosus- Primary [facility]* Diagnosis Palpitations- Primary Symptomatic bradycardia Other specified cardiac dysrhythmias Orthostatic lightheadedness Dizziness and giddiness Diffuse pain Generalized pain Blood pressure instability Other abnormal clinical finding Decreased activity tolerance Orthostatic intolerance Moderate persistent asthma without complication Unspecified asthma Physical deconditioning Debility, unspecified [facility] Diagnosis Night sweats- Primary Generalized hyperhidrosis Lymphadenopathy Enlargement of lymph nodes Rash and nonspecific skin eruption Rash and other nonspecific skin eruption Allergic rhinitis, unspecified seasonality, unspecified trigger Moderate persistent asthma without complication Unspecified asthma [facility] Diagnosis 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) Unspecified hemorrhagic conditions [facility]* Diagnosis 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 documented in this encounter [facility] note* Diagnosis Breast screening- Primary Breast screening, unspecified 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 documented in this encounter [facility] note* Diagnosis KATELIN on CPAP- Primary Obstructive [...] hazards to health documented in this encounter [facility] note* Diagnosis Breast screening- Primary Breast screening, unspecified 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 [facility]* Diagnosis Palpitations- Primary Orthostatic intolerance Symptomatic bradycardia Other specified cardiac dysrhythmias documented in this encounter [facility] note* Diagnosis Moderate persistent asthma without complication- Primary Unspecified asthma SOB (shortness of breath) Shortness of breath Post-acute sequelae of COVID-19 (PASC) [facility]* Diagnosis Migraine without aura and without status migrainosus, not intractable- Primary Migraine without aura, without mention of intractable migraine without mention of status migrainosus [facility]* Diagnosis 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) Unspecified hemorrhagic conditions [facility]* Diagnosis No-show for appointment- Primary documented in this encounter [facility] note* Diagnosis 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) Unspecified hemorrhagic conditions Coagulopathy (HCC) Other and unspecified coagulation defects documented in this encounter [facility] note* Diagnosis 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) Unspecified hemorrhagic conditions [facility]* Diagnosis 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 [facility] Diagnosis Migraine without aura and without status migrainosus, not intractable- Primary Migraine without aura, without mention of intractable migraine without mention of status migrainosus documented in this encounter [facility] note* Diagnosis 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 * Strain or Sprain (Italian) [facility] Discharge instructions* Attachments The following attachments cannot be sent through Care Everywhere. * Chest Pain (Italian) * Restless Legs Syndrome (Italian) [facility] Phone: InstructionsNot on filedocumented in this encounter [facility] No data available for this section [facility] reason for referral (narrative)* Diagnostic Procedure Only (Routine) - Authorized Specialty Diagnoses / Procedures Referred By Contac t Referred To Contact US IMAGING Diagnoses Chronic RLQ pain Procedures US SOFT TISSUE ABDOMEN US ABDOMINAL REAL TIME W/[place] [address] [place] [address] Us Imaging Referral ID Status Reason Start Date Expiration Date Visits Requested Visits Authorized [id number] Authorized Auto-Generat ed Referral 08/15/2021 09/14/2022 1 1 [facility] for referral (narrative)* Diagnostic Procedure Only (Routine) - Authorized Specialty Diagnoses / Procedures Referred By Leviac t Referred To Contact US IMAGING Diagnoses Chronic RLQ pain Procedures US PELVIS LTD US PELVIC NONOBSTETRIC IMAGE DCMTN LIMITED/F/[place] [address] [place] [address] Us Imaging Referral ID Status Reason Start Date Expiration Date Visits Requested Visits Authorized [id number] Authorized Auto-Generat ed Referral 08/16/2021 09/15/2022 1 1 [facility] for referral (narrative)* Outpatient Procedure (Routine) - Closed Specialty Diagnoses / Procedures Referred By Sabas t Referred To Contact [facility] Diagnoses Symptomatic bradycardia Blood pressure instability History of COVID-19 Procedures ECHO ECHO TTHRC R-T 2D W/WOM-MODE COMPL SPEC&COLR D Sai Perez MD [address] [place] [address] [facility] [place] [address] Referral ID Status Reason Start Date Expiration Date V isits Requested Visits Authorized [id number] Closed Auto-Generate d Referral 07/21/2021 07/21/2022 1 1 [facility] for referral (narrative)* Diagnostic Procedure Only (Routine) - Pending Review Specialty Diagnoses / Procedures Referred By Sabas t Referred To Contact US IMAGING Diagnoses Post-acute sequelae of COVID-19 (PASC) Mass of left axilla Procedures US CHEST WALL/SOFT TISSUE US CHEST REAL TIME W/IMAGE DOCUMENTATION Landen Clark APRN.LANDCARE FACILITATOR [address] [place] [address] Us Imaging Referral ID Status Reason Start Date Expiration Date Visits Requested Visits Authorized [id number] Pending Review Auto-Generat ed Referral 09/19/2021 10/19/2022 [...] multiple sites Procedures LUNG VOLUMES Landen Clark APRN.LANDCARE FACILITATOR [address] [place] [address] [place] [address] Referral ID Status Reason Start Date Expiration Date Visits Requested Visits Authorized [id number] Pending Review Auto-Generat ed Referral 09/19/2021 10/19/2022 1 1 * Outpatient Procedure (Routine) - Pending Review Specialty Diagnoses / Procedures [facility] Diagnoses History of COVID-19 Post-acute sequelae of COVID-19 (PASC) SOB (shortness of breath) Chronic cough Chest discomfort Palpitation CAVANAUGH (dyspnea on exertion) Dizziness Near syncope Night sweats Orthopnea Anxiety Myalgia Pain in joint, multiple sites Procedures SPIROMETRY - BASELINE AND POST DILATOR BRNCDILAT RSPSE SPMTRY PRE&POST-BRNCDILAT ADMN Landen Clark APRN.LANDCARE FACILITATOR [address] [place] [address] Res[facility] [address] [place] [address] Referral ID Status Reason Start Date Expiration Date Visits Requested Visits Authorized [id number] Pending Review Auto-Generat ed Referral 09/19/2021 10/19/2022 [...] MINUTE WALK CARDIOPULMONARY EXERCISE STRESS Landen Clark APRN.CNP [address] [place] [address] [facility] [place] [address] [place] [address] Referral ID Status Reason Start Date Expiration Date Visits Requested Visits Authorized [id number] Pending Review Auto-Generat ed Referral 09/19/2021 10/19/2022 [...] DIFFUSION CAPACITY (DLCO) DIFFUSING CAPACITY Landen Clark APRN.LANDCARE FACILITATOR [address] [place] [address] Res[facility] [place] [address] [place], [place] [id number] Referral ID Status Reason Start Date Expiration Date Visits Requested Visits Authorized [id number] Pending Review Auto-Generat ed Referral 09/19/2021 10/19/2022 1 1 [facility] for referral (narrative)* Outpatient Procedure (Routine) - Pending Review Specialty Diagnoses / Procedures Referred By Contac t Referred To Contact [facility] Diagnoses KATELIN on CPAP Poor compliance with CPAP treatment Procedures PAP NAP PSG (CPAP, BILEVEL, ASV) SLEEP STD REC VNTJ RESPIR ECG/HRT RATE&O2 ATTN Meena Grissom MD [address] [place] [address] [place] [address] Referral ID Status Reason Start Date Expiration Date Visits Requested Visits Authorized [id number] Pending Review Auto-Generat ed Referral 12/16/2022 1 1 [facility] for referral (narrative)* Outpatient Procedure (Routine) - Pending Review Specialty Diagnoses / Procedures Referred By Contac t Referred To Contact [facility] Diagnoses Moderate persistent asthma without complication SOB (shortness of breath) Post-acute sequelae of COVID-19 (PASC) Procedures SPIROMETRY - BASELINE AND POST DILATOR BRNCDILAT RSPSE SPMTRY PRE&POST-BRNCDILAT ADMN Jaja Cabral PA-C [address] [place] [address] [place] [id number] Referral ID Status Reason Start Date Expiration Date Visits Requested Visits Authorized [id number] Pending Review Auto-Generat ed Referral 12/06/2021 01/05/2023 1 1 * Outpatient Procedure (Routine) - Pending Review Specialty Diagnoses / Procedures [facility] Diagnoses Moderate persistent asthma without complication SOB (shortness of breath) Post-acute sequelae of COVID-19 (PASC) Procedures NITRIC OXIDE, EXHALED NITRIC OXIDE GAS DETERMINATION Jaja Cabral PA-C [address] [place] [id number] [place] [address] Referral ID Status Reason Start Date Expiration Date Visits Requested Visits Authorized [id number] Pending Review Auto-Generat ed Referral 12/06/2021 01/05/2023 1 1 [facility] for visit Narrative* Outpatient Procedure (Routine) - Closed Specialty Diagnoses / Procedures Referred By Contac t Referred To Contact [facility] Diagnoses Symptomatic bradycardia Blood pressure instability History of COVID-19 Procedures ECHO ECHO TTHRC R-T 2D W/WOM-MODE COMPL SPEC&[place] [address] [place] [address] [place] [address] Referral ID Status Reason Start Date Expiration Date V isits Requested Visits Authorized [id number] Closed Auto-Generate d Referral 07/21/2021 07/21/2022 1 1 [facility] for visit Narrative* Outpatient Procedure (Routine) [...] MINUTE WALK CARDIOPULMONARY EXERCISE STRESS Landen Clark APRN.MACY [address] [place] [phone] Res[facility] [address] [place] [address] Referral ID Status Reason Start Date Expiration Date V isits Requested Visits Authorized [id number] Closed Auto-Generate d Referral 09/19/2021 10/19/2022 1 1 [facility] Advance Directives No Advanced Directives Records FoundDocuments on File Type Date Recorded Patient Medical Charge Entry Specialist Expl anation ACP-Advance Directive ACP-Power of Banking Consultant Latest Code Status on File Code Status Date Activated Date Inactivated Comments Full Code 12/30/2011 10:09 AM 12/31/2011 4:00 PM Documents on File Type Date Recorded Patient Medical Charge Entry Specialist Expl anation Advance Directive(s) 05/18/2015 10:11 AM Advance Directive(s) 05/14/2015 12:11 PM Documents on File Type Date Recorded Patient Medical Charge Entry Specialist Expl anation Advance Directive(s) 06/27/2021 1:27 PM Advance Directive(s) 05/18/2015 10:11 AM Advance Directive(s) 05/14/2015 12:11 PM Documents on File Type Date Recorded Patient Medical Charge Entry Specialist Expl anation Advance Directive(s) 06/27/2021 1:27 PM Advance Directive(s) 05/18/2015 10:11 AM Advance Directive(s) 05/14/2015 12:11 PM Documents on File Type Date Recorded Patient Medical Charge Entry Specialist Expl anation ACP-Advance Directive 01/12/2022 2:29 PM ACP-Power of Banking Consultant 01/12/2022 2:29 PM Latest Code Status on [...] Referral Specialty Diagnoses / Procedures Referred By Contsuraj t Referred To Contact Neurology Diagnoses Muscle spasms of lower extremity, unspecified laterality Akathisia Procedures CONSULT TO NEUROLOGY OFFICE/OUTPATIENT [facility] 60-74 MINUTES Peter Knight, ENGAGEMENT LEAD.LANDCARE FACILITATOR [address] [place] [address] Referral ID Status Reason Start Date Expiration Date Visits Requested Visits Authorized [id number] Authorized PCP Requested Referral 06/27/2021 06/27/2022 1 1 Specialty Diagnoses / Procedures Referred By Contac t Referred To Contact Ent - Otolaryngology Diagnoses Maxillary sinus cyst Procedures CONSULT TO ENT OFFICE/OUTPATIENT [facility] 60-74 MINUTES Peter Knight APRN.LANDCARE FACILITATOR [address] [place] [address] Referral ID Status Reason Start Date Expiration Date Visits Requested Visits Authorized [id number] Authorized PCP Requested Referral 06/27/2021 06/27/2022 1 1 Specialty Diagnoses / Procedures Referred By Contac t Referred To Contact Diagnoses Coagulopathy (HCC) 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HCC) Procedures CONSULT TO MEDICAL GENETICS - GENERAL OFFICE/OUTPATIENT [facility] 60-74 MINUTES MEDICAL GENETICS COUNSELING EACH 30 MINUTES Yan Bass MD [address] [place] [address] [place] [address] [facility] [address] [place], [place] [id number] Referral ID Status Reason Start Date Expiration Date Visits Requested Visits Authorized [id number] Authorized PCP Requested Referral Auto-Generate d Referral 07/01/2021 07/01/2022 1 1 Specialty Diagnoses / Procedures Referred By Contac t Referred To Contact Psychology Diagnoses Intractable chronic migraine without aura and without status migrainosus Abnormal involuntary movement Procedures CONSULT TO PSYCHOLOGY OFFICE/OUTPATIENT [facility] 60-74 MINUTES Tracee Mcintyre MD [address] [place] [address] Referral ID Status Reason Start Date Expiration Date Visits Requested Visits Authorized [id number] Pending Review PCP Requested Referral 07/06/2021 07/06/2022 1 1 Specialty Diagnoses / Procedures Referred By Contac t Referred To Contact [facility] Diagnoses Intractable chronic migraine without aura and without status migrainosus Abnormal involuntary movement Procedures CONSULT TO PHYSICAL THERAPY PHYSICAL THERAPY EVALUATION HIGH COMPLEX 45 MINS Tracee Mcintyre MD [address] [place] [address] [facility] [place] [phone] Referral ID Status Reason Start Date Expiration Date Visits Requested Visits Authorized [id number] Pending Review Auto-Generat ed Referral 07/06/2021 07/06/2022 1 1 Specialty Diagnoses / Procedures Referred By Contac t Referred To Contact Allergy Diagnoses Allergy, initial encounter Procedures CONSULT TO ALLERGY/IMMUNOLOGY OFFICE/OUTPATIENT [facility] 60-74 MINUTES Aldo Ann MD [address] [place] [address] Referral ID Status Reason Start Date Expiration Date Visits Requested Visits Authorized [id number] Authorized PCP Requested Referral 07/14/2021 07/14/2022 1 1 Specialty Diagnoses / Procedures Referred By Contac t Referred To Contact PULM COVID RECOV [facility] Diagnoses History of COVID-19 Procedures CONSULT TO COVID RECOVER CLINIC Sai Perez MD [address] [place] [address] Pulm Covid Recov [facility] [address] [place] [address] Referral ID Status Reason Start Date Expiration Date Visits Requested Visits Authorized [id number] Authorized PCP Requested Referral 07/21/2021 07/21/2022 1 1 Specialty Diagnoses / Procedures Referred By Contac t Referred To Contact [facility] Diagnoses Symptomatic bradycardia Blood pressure instability History of COVID-19 Procedures ECHO ECHO TTHRC R-T 2D W/WOM-MODE COMPL SPEC&COLR D Sai Perez MD [address] [place] [address] [facility] [address] [address] Referral ID Status Reason Start Date Expiration Date Visits Requested Visits Authorized [id number] Authorized Auto-Generat ed Referral 07/21/2021 07/21/2022 1 1 Specialty Diagnoses / Procedures Referred By Contac t Referred To Contact Ent - Otolaryngology Diagnoses Hoarseness of voice Procedures CONSULT TO ENT OFFICE/OUTPATIENT [facility] 60-74 MINUTES Cindy Rushing MD [address] [address] Rc Cardenas, PhD, CCC-REVIEW COORDINATOR [address] [place] [address] Referral ID Status Reason Start Date Expiration Date Visits Requested Visits Authorized [id number] Authorized PCP Requested Referral 07/25/2021 07/25/2022 1 1 Specialty Diagnoses / Procedures Referred By Contac t Referred To Contact Diagnoses Diffuse pain Decreased activity tolerance Physical deconditioning Procedures WELLNESS CONSULT OFFICE/OUTPATIENT [facility] 60-74 MINUTES Peter Knight APRN.CNP [address] [place] [phone] Referral ID Status Reason Start Date Expiration Date Visits Requested Visits Authorized [id number] Authorized PCP Requested Referral 08/23/2021 08/23/2022 1 1 Specialty Diagnoses / Procedures Referred By Contac t Referred To Contact Diagnoses Long COVID PTSD (post-traumatic stress disorder) Procedures MIND/BODY HOLISTIC PSYCHOTHERAPY OFFICE/OUTPATIENT [facility] 60-74 MINUTES [place] [address] Referral ID Status Reason Start Date Expiration Date Visits Requested Visits Authorized [id number] Authorized PCP Requested Referral 08/30/2021 08/30/2022 1 1 Specialty Diagnoses / Procedures Referred By Contac t Referred To Contact Diagnoses Long COVID Diffuse pain Decreased activity tolerance Procedures CONSULT TO [facility]ITION [facility] OFF[facility]/OUTPATIENT [facility] 60-74 [place]UTES [place] [address] Referral ID Status Reason Start Date Expiration Date Visits Requested Visits Authorized [id number] Authorized PCP Requested Referral 08/30/2021 08/30/2022 1 1 Specialty Diagnoses / Procedures Referred By Contac t Referred To Contact Diagnoses Chronic migraine without aura, intractable, without status migrainosus Procedures PROVIDER ORDERED FOLLOW UP OFFICE/OUTPATIENT [facility] 60-74 MINUTES Bhargavi Saldana PA-C [address] [place] [phone] Referral ID Status Reason Start Date Expiration Date Visits Requested Visits Authorized [id number] Authorized PCP Requested Referral 10/19/2022 1 1 Specialty Diagnoses / Procedures Referred By Contac t Referred To Contact Hematology Diagnoses Lymphadenopathy Night sweats Procedures CONSULT TO HEMATOLOGY OFFICE/OUTPATIENT [facility] 60-74 MINUTES Cindy Rushing MD [address] [place] [address] Referral ID Status Reason Start Date Expiration Date Visits Requested Visits Authorized [id number] Authorized PCP Requested Referral 10/24/2021 10/24/2022 1 1 Specialty Diagnoses / Procedures Referred By Contac t Referred To Contact Diagnoses Migraine without aura and without status migrainosus, not intractable Procedures PROVIDER ORDERED FOLLOW UP OFFICE/OUTPATIENT [facility] 60-74 MINUTES Bhargavi Saldana PA-C [address] [place] [address] Referral ID Status Reason Start Date Expiration Date Visits Requested Visits Authorized [id number] Authorized PCP Requested Referral 04/16/2022 01/16/2023 1 1 Specialty Diagnoses / Procedures Referred By Contac t Referred To Contact Cardiology Diagnoses 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) Coagulopathy (HCC) Procedures CONSULT TO CARDIOLOGY OFFICE/OUTPATIENT [facility] 60-74 MINUTES Fuentes Amaral MD [address] [place] [address] [place] [address] Referral ID Status Reason Start Date Expiration Date Visits Requested Visits Authorized [id number] Authorized PCP Requested Referral 02/16/2022 02/16/2023 1 1 Referral ID Status Reason Start Date Expiration Date Visits Requested Visits Authorized [id number] Authorized PCP Requested Referral 10/27/2022 04/26/2023 1 [...] Comments Allergic Reaction Unknown trigger, ons et VENDER. Pt used epi-pen prior to arrival and reports feeling short of breath Reason Comments surgery clearence Reason Comments Adrenal Specialty Diagnoses / Procedures Referred By Contac t Referred To Contact Endocrinology Diagnoses Symptomatic bradycardia Blood pressure instability Procedures CONSULT TO ENDOCRINOLOGY OFFICE/OUTPATIENT [facility] 60-74 MINUTES Peter Knight APRN.LANDCARE FACILITATOR [address] [place] [address] Referral ID Status Reason Start Date Expiration Date V isits Requested Visits Authorized [id number] Closed PCP Requested Referral 05/24/2021 05/24/2022 1 [...] CONSULT TO MEDICAL GENETICS - GENERAL OFFICE/OUTPATIENT [facility] 60-74 MINUTES MEDICAL GENETICS COUNSELING EACH 30 MINUTES Yan Bass MD [address] [place] [address] [place] [address] [facility] [place] [address] Referral ID Status Reason Start Date Expiration Date V isits Requested Visits Authorized [id number] Closed PCP Requested Referral Auto-Generated Referral 07/01/2021 07/01/2022 1 1 Reason Comments Coagulopathy Specialty Diagnoses / Procedures Referred By Contac t Referred To Contact Cardiology Diagnoses Symptomatic bradycardia Blood pressure instability Procedures CONSULT TO CARDIOLOGY OFFICE/OUTPATIENT [facility] 60-74 MINUTES Peter Knight APRN.LANDCARE FACILITATOR [address] [place] [address] Referral ID Status Reason Start Date Expiration Date V isits Requested Visits Authorized [id number] Closed PCP Requested Referral 05/24/2021 05/24/2022 1 1 Reason Comments Allergies Asthma Reason Comments Follow Up Chronic Migraine Reason Comments Consult Specialty Diagnoses / Procedures Referred By Contac t Referred To Contact Psychology Diagnoses Intractable chronic migraine without aura and without status migrainosus Abnormal involuntary movement Procedures CONSULT TO PSYCHOLOGY OFFICE/OUTPATIENT [facility] 60-74 MINUTES Tracee Mcintyre MD [address] [place] [address] Referral ID Status Reason Start Date Expiration Date Visits Requested Visits Authorized [id number] Pending Review PCP Requested Referral 07/06/2021 07/06/2022 [...] HIGH COMPLEX 45 MINS Tracee Mcintyre MD [address] [place] [address] [facility] [place] [address] [place] [address] Referral ID Status Reason Start Date Expiration Date V isits Requested Visits Authorized [id number] Authorized 02/05/2021 02/04/2022 99 99 Reason Comments [...] NEW HIGH MDM 60-74 MINUTES Peter Knight APRN.MACY [address] [place] [address] Referral ID Status Reason Start Date Expiration Date V isits Requested Visits Authorized [id number] Closed PCP Requested Referral 08/23/2021 08/23/2022 1 1 Reason Comments Allergic Reaction Onset prior to arriv al. Pt reports her face is burning and feels short of breath. 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 Comments Kiln Placer - Other Reason Comments New Specialty Diagnoses / Procedures Referred By Contac t Referred To Contact PULM COVID REC[facility] Diagnoses History of COVID-19 Procedures CONSULT TO COVID RECOVER CLINIC Sai Perez MD [address] [place] [address] Pulm Covid Recov [facility] [address] [place] [address] Referral ID Status Reason Start Date Expiration Date V isits Requested Visits Authorized [id number] Closed PCP Requested Referral 07/21/2021 07/21/2022 1 1 Reason Comments Consult Patient states [facility] w as at [facility] on 09/19/21, seen Landen Clark APRN. She states her lymph nodes were swollen at that visit. Patient states had COVID 10/2020. She states her bones feel like someone is scraping them. Patient states she will pours out sweat or is freezing symptoms started in and getting a lot worse now. Reason Comments Spirometry Specialty Diagnoses / Procedures [facility] Diagnoses History of COVID-19 Post-acute sequelae of COVID-19 (PASC) SOB (shortness of breath) Chronic cough Chest discomfort Palpitation CAVANAUGH (dyspnea on exertion) Dizziness Near syncope Night sweats Orthopnea Anxiety Myalgia Pain in joint, multiple sites Procedures LUNG DIFFUSION CAPACITY (DLCO) DIFFUSING CAPACITY Landen Clark APRN.LANDCARE FACILITATOR [address] [place] [address] [place] [address] Referral ID Status Reason Start Date Expiration Date V isits Requested Visits Authorized [id number] Closed Auto-Generate d Referral 09/19/2021 10/19/2022 1 1 Specialty Diagnoses / Procedures [facility] Referred To Contact [facility] Diagnoses History of COVID-19 Post-acute sequelae of COVID-19 (PASC) SOB (shortness of breath) Chronic cough Chest discomfort Palpitation CAVANAUGH (dyspnea on exertion) Dizziness Near syncope Night sweats Orthopnea Anxiety Myalgia Pain in joint, multiple sites Procedures SPIROMETRY - BASELINE AND POST DILATOR BRNCDILAT RSPSE SPMTRY PRE&POST-BRNCDILAT ADMN Landen Clark APRN.LANDCARE FACILITATOR [address] [place] [address] [address] Referral ID Status Reason Start Date Expiration Date V isits Requested Visits Authorized [id number] Closed Auto-Generate d Referral 09/19/2021 10/19/2022 1 [...] LUNG VOLUMES W/WO AIRWAY RESIST Landen Clark APRN.LANDCARE FACILITATOR [address] [place] [address] Respiratory [place] [address] [place] [address] Referral ID Status Reason Start Date Expiration Date V isits Requested Visits Authorized [id number] Closed Auto-Generate d Referral 09/21/2021 02/04/2022 1 1 Reason Comments Radio Gen A21 Reason Comments discuss test results Reason Comments Follow Up Chronic Migraine Reason Comments Palpitations Reason Comments Allergic Rhinitis Asthma Reason Comments coagulpathy Reason Comments Established Patient Reason Comments Appointment Download Pap Therapy Follow UP Reason Comments Kiln Placer - Other Download Reason Comments Sleep Apnea Reason Comments Breast screening Reason Comments Patient Update Reason Comments Follow Up Migraine Specialty Diagnoses / Procedures Referred By [facility] t Referred To Contact Diagnoses Chronic migraine without aura, intractable, without status migrainosus Procedures PROVIDER ORDERED FOLLOW UP OFFICE/OUTPATIENT NEW HIGH MDM 60-74 MINUTES Bhargavi Saldana PA-C [address] [place] [address] Referral ID Status Reason Start Date Expiration Date V isits Requested Visits Authorized [id number] Closed PCP Requested Referral 01/18/2022 10/19/2022 1 [...] up Specialty Diagnoses / Procedures Referred By Contac t Referred To Contact Diagnoses Migraine without aura and without status migrainosus, not intractable Procedures PROVIDER ORDERED FOLLOW UP OFFICE/OUTPATIENT NEW HIGH MDM 60-74 MINUTES Bhargavi Saldana PA-C [address] [place] [address] Referral ID Status Reason Start Date Expiration Date V isits Requested Visits Authorized [id number] Closed PCP Requested Referral 04/16/2022 01/16/2023 1 1 Reason Comments PAP Therapy Follow Up DOWNLOAD Reason Comments Qualitative platelet disorder 5 month fo llow up Reason Comments Med Refill Ordered Prescriptions (unrec ognized section and content) [...] mg (COMPLETED) 650 mg, Oral, ONCE, On Sun11/01/20 at 1430, For 1 dose, Maximum dose [...] (New Bag - Prov ider: Nicole Smith RN)234 (Stopped - Provider: Nicole Smith RN) diphenhydrAMINE (BENADRYL) injection 25 mg (COMPLETED) 25 mg, IntraVENous, ONCE, On 04/16/21 at 2200, For 1 dose 222 (Given - Provid er: Luisana Reeder RN) famotidine (PEPCID) injection 20 mg (COMPLETED) 20 mg, IntraVENous, ONCE, On 04/16/21 at 2145, For 1 dose, IV Push over minimum of 2 minutes - Dilute with 10 mL NS 222 (Given - Provid er: Luisana Reeder, CYNTHIA) metoclopramide (REGLAN) injection 10 mg (COMPLETED) 10 mg, IntraVENous, ONCE, On 04/16/21 at 2200, For 1 dose, Iv piggyback plz 222 (Given - Provid er: Luisana Reeder RN) [...] 2 mg, IntraVENous, ONCE, 1 dose, On 05/20/21 at 1745, If oral and IV narcotics ordered, use oral first and only use IV if oral is ineffective or cannot take oral. Do Not give oral and IV within 1 hour of each other unless specifically ordered. 1814 (Given - Provid er: Sanaz You RN) Scheduled Medication Order 06/02/2021 06/03/2021 06/04/2021 albuterol (PROVENTIL) nebulizer solution 2.5 mg (COMPLETED) 2.5 mg, Nebulization, ONCE, 1 dose, On 06/04/21 at 1630, Initiate RT Bronchodilator Protocol: Yes, Children under 5 1634 (Given - Provid er: Pallavi Galan RCP) diphenhydrAMINE (BENADRYL) injection 50 mg (COMPLETED) 50 [...] 0030 0042 (Given - Provid er: Flory Cook RN) Scheduled Medication Order 09/03/2021 09/04/2021 09/05/2021 [...] mL NS 1416 (Given - Provid er: Clemenitna Wiggins RN) ipratropium-albuterol (DUONEB) nebulizer solution 1 ampule (COMPLETED) 1 ampule, Inhalation, ONCE, 1 dose, On Sun09/05/21 at 1445, Initiate RT Bronchodilator Protocol: Yes - ED protocol 1440 (Given - Provid er: Buffy Salinas RCP) methylPREDNISolone sodium (SOLU-MEDROL) injection 60 mg (COMPLETED) 60 mg, IntraVENous, ONCE, On 09/05/21 at 1415, For 1 dose 1415 (Given - Provid er: Cleemntina Wiggins RN) INFORMATION SOURCE (unrecogn ized section and content) DATE CREATED AUTHOR 03/08/2021 [facility] DATE CREATED AUTHOR AUTHOR'S ORGANIZ ATION 04/26/2021 [facility] DATE CREATED AUTHOR AUTHOR'S ORGANIZ ATION 07/27/2021 [facility] DATE CREATED AUTHOR AUTHOR'S ORGANIZ ATION 12/22/2021 [facility] DATE CREATED AUTHOR AUTHOR'S ORGANIZ ATION 04/07/2022 [facility] DATE CREATED AUTHOR AUTHOR'S ORGANIZ ATION 06/17/2022 [facility] DATE CREATED AUTHOR AUTHOR'S ORGANIZ ATION 10/03/2022 [facility] DATE CREATED AUTHOR AUTHOR'S ORGANIZ ATION 12/19/2022 [facility] DATE CREATED AUTHOR AUTHOR'S ORGANIZ ATION 01/18/[address] [facility] DATE CREATED AUTHOR AUTHOR'S ORGANIZ ATION 02/14/2023 [facility] DATE CREATED AUTHOR AUTHOR'S ORGANIZ ATION 04/05/2023 [facility] DATE CREATED AUTHOR AUTHOR'S ORGANIZ ATION 04/09/2023 [facility] dical Specialists EPIC Care Teams (unrecognized sec tion and content) Survey Research Associate Relationship Specialty Start Date End Date Cas Dowell MD PCP - General 09/04/11 Survey Research Associate Relationship Specialty Start Date End Date Cas Dowell MD PCP - General 09/04/11 Survey Research Associate Relationship Specialty Start Date End Date Cas Dowell PCP - General Family Practice 02/20/14 Survey Research Associate Relationship Specialty Start Date End Date Cas Dowell MD PCP - General 09/04/11 Survey Research Associate Relationship Specialty Start Date End Date Cas Dowell PCP - General Family Practice 02/20/14 Survey Research Associate Relationship Specialty Start Date End Date Cas Dowell PCP - General Family Practice 02/20/14 Survey Research Associate Relationship Specialty Start Date End Date Cas Dowell PCP - General Family Practice 02/20/14 Survey Research Associate Relationship Specialty Start Date End Date NadelCas almonte PCP - General Family Practice 02/20/14 Survey Research Associate Relationship Specialty Start Date End Date Cas Dowell PCP - General Family Practice 02/20/14 Survey Research Associate Relationship Specialty Start Date End Date Cas Dowell PCP - General Family Practice 02/20/14 Survey Research Associate Relationship Specialty Start Date End Date Cas Dowell PCP - General Family Practice 02/20/14 Survey Research Associate Relationship Specialty Start Date End Date Cas Dowell MD PCP - General 09/04/11 Survey Research Associate Relationship Specialty Start Date End Date Cas Dowell PCP - General Family Practice 02/20/14 Survey Research Associate Relationship Specialty Start Date End Date Cas Dowell PCP - General Family Practice 02/20/14 Survey Research Associate Relationship Specialty Start Date End Date Cas Dowell PCP - General Family Practice 02/20/14 Survey Research Associate Relationship Specialty Start Date End Date GraysonCas PCP - General Family Practice 02/20/14 Survey Research Associate Relationship Specialty Start Date End Date GraysonCas PCP - General Family Practice 02/20/14 Survey Research Associate Relationship Specialty Start Date End Date CoreyCas howe PCP - General Family Practice 02/20/14 Survey Research Associate Relationship Specialty Start Date End Date GabrielaCas almonte PCP - General Family Practice 02/20/14 Survey Research Associate Relationship Specialty Start Date End Date CoreyelCas almonte PCP - General Family Practice 02/20/14 Sai Perez MD [address] [place] [address] Primary Staff Physician Cardiology 07/21/21 Survey Research Associate Relationship Specialty Start Date End Date Cas Dowell PCP - General Family Practice 02/20/14 Sai Perez MD [address] [place], [place] [address] Primary Staff Physician Cardiology 07/21/21 Survey Research Associate Relationship Specialty Start Date End Date GabrielaCas almonte PCP - General Family Practice 02/20/14 Sai Perez MD [address] [place] [address] Primary Staff Physician Cardiology 07/21/21 Survey Research Associate Relationship Specialty Start Date End Date Cas Dowell PCP - General Family Practice 02/20/14 Survey Research Associate Relationship Specialty Start Date End Date Cas Dowell PCP - [facility] Practice 02/20/14 Sai Perez MD [address] [place], [place] [address] Primary Staff Physician Cardiology 07/21/21 Survey Research Associate Relationship Specialty Start Date End Date Cas Dowell PCP - [facility] Practice 02/20/14 Sai Perez MD [address] [place] [address] Primary Staff Physician Cardiology 07/21/21 Survey Research Associate Relationship Specialty Start Date End Date Cas Dowell PCP - [facility] Practice 02/20/14 Sai Perez MD [address] [place] [address] Primary Staff Physician Cardiology 07/21/21 Rubens Tim [address] [place], [place] [address] [place] [address] Referring DENTAL INSURANCE COORDINATOR 08/05/21 Survey Research Associate Relationship Specialty Start Date End Date Cas Dowell PCP - General [facility] Practice 02/20/14 Sai Perez MD [address] [place] [address] Primary Staff Physician Cardiology 07/21/21 Rubens Tim [address] [facility] [place] [address] Referring DENTAL INSURANCE COORDINATOR 08/05/21 Survey Research Associate Relationship Specialty Start Date End Date Cas Dowell PCP - General Family Practice 02/20/14 Sai Perez MD [address] [place] [address] Primary Staff Physician Cardiology 07/21/21 Rubens Tim [address] [place], [place] [address] [place], [place] [id number] Referring DENTAL INSURANCE COORDINATOR 08/05/21 Survey Research Associate Relationship Specialty Start Date End Date Cas Dowell PCP - General Family Practice 02/20/14 Sai Perez MD [address] [place] [address] Primary Staff Physician Cardiology 07/21/[address] Rubens Tim [address] [place], [place] [address], [facility] Referring DENTAL INSURANCE COORDINATOR 08/05/21 Survey Research Associate Relationship Specialty Start Date End Date Cas Dowell PCP - General Family Practice 02/20/14 Sai Perez MD [address] [place] [address] Primary Staff Physician Cardiology 07/21/[address] Rubens Tim [address] [place], [place] [address] [place], [facility]11 Referring DENTAL INSURANCE COORDINATOR 08/05/21 Survey Research Associate Relationship Specialty Start Date End Date Cas Dowlel PCP - General Family Practice 02/20/14 Sai Perez MD [address] [place] [address] Primary Staff Physician Cardiology 07/21/21 Rubens Tim [address] [place] [address] Referring DENTAL INSURANCE COORDINATOR 08/05/21 Survey Research Associate Relationship Specialty Start Date End Date Cas Dowell PCP - General Family Practice 02/20/14 Sai Perez MD [address] [place] [address] Primary Staff Physician Cardiology 07/21/21 Rubens Tim, DO [address] [place] [address] Referring DENTAL INSURANCE COORDINATOR 08/05/21 Survey Research Associate Relationship Specialty Start Date End Date Cas Dowell PCP - General Family Practice 02/20/14 Sai Perez MD [address] [place] [address] Primary Staff Physician Cardiology 07/21/21 Rubens Tim, DO [address] [place] [address] Referring DENTAL INSURANCE COORDINATOR 08/05/21 Survey Research Associate Relationship Specialty Start Date End Date Cas Dowell PCP - General Family Practice 02/20/14 Sai Perez MD [address] [place] [address] Primary Staff Physician Cardiology 07/21/21 Rubens Tim, DO [address] [place] [address] Referring DENTAL INSURANCE COORDINATOR 08/05/21 Survey Research Associate Relationship Specialty Start Date End Date Cas Dowell PCP - General Family Practice 02/20/14 Sai Perez MD [address] [place] [address] Primary Staff Physician Cardiology 07/21/21 Rubens Tim, [address] [place], [place] [address] Referring DENTAL INSURANCE COORDINATOR 08/05/21 Survey Research Associate Relationship Specialty Start Date End Date Cas Dowell PCP - General [facility] Practice 02/20/14 Sai Perez MD [address] [place] [address] Primary Staff Physician Cardiology 07/21/21 Rubens Tim, DO [address] [place], [place] [address] Referring DENTAL INSURANCE COORDINATOR 08/05/21 Survey Research Associate Relationship Specialty Start Date End Date Cas Dowell MD PCP - General 09/04/11 Survey Research Associate Relationship Specialty Start Date End Date Cas Dowell PCP - General Family Practice 02/20/14 Sai Perez MD [address] [place] [address] Primary Staff Physician Cardiology 07/21/21 Rubens Tim, DO [address] [place] [address] Referring DENTAL INSURANCE COORDINATOR 08/05/21 Survey Research Associate Relationship Specialty Start Date End Date Cas Dowell PCP - General Family Practice 02/20/14 Sai Perez MD [address] [place] [address] Primary Staff Physician Cardiology 07/21/21 Rubens Tim, DO [address] [place] [address] Referring DENTAL INSURANCE COORDINATOR 08/05/21 Survey Research Associate Relationship Specialty Start Date End Date Cas Dowell PCP - General Family Practice 02/20/14 Sai Perez MD [address] [place] [address] Primary Staff Physician Cardiology 07/21/21 Rubens Tim, DO [address] [place], [facility]11 Referring DENTAL INSURANCE COORDINATOR 08/05/21 Survey Research Associate Relationship Specialty Start Date End Date Cas Dowell PCP - General Family Practice 02/20/14 Sai Perez MD [address] [place] [address] Primary Staff Physician Cardiology 07/21/21 Rubens Tim, DO [address] [place], [facility]11 Referring DENTAL INSURANCE COORDINATOR 08/05/21 Survey Research Associate Relationship Specialty Start Date End Date Cas Dowell PCP - General Family Practice 02/20/14 Sai Perez MD [address] [place] [address] Primary Staff Physician Cardiology 07/21/21 Rubens Tim, DO [address] [place] [address] Referring DENTAL INSURANCE COORDINATOR 08/05/21 Survey Research Associate Relationship Specialty Start Date End Date Cas Dowell PCP - General Family Practice 02/20/14 Sai Perez MD [address] [place] [address] Primary Staff Physician Cardiology 07/21/21 Rubens Tim, DO [address] [place] [address] Referring DENTAL INSURANCE COORDINATOR 08/05/21 Survey Research Associate Relationship Specialty Start Date End Date Cas Dowell PCP - General Family Practice 02/20/14 Sai Perez MD [address] [place] [address] Primary Staff Physician Cardiology 07/21/21 Rubens Tim, DO [address] [place] [address] Referring DENTAL INSURANCE COORDINATOR 08/05/21 Survey Research Associate Relationship Specialty Start Date End Date Cas Dowell PCP - General [facility] Practice 02/20/14 Sai Perez MD [address] [place] [address] Primary Staff Physician Cardiology 07/21/21 Rubens Tim, DO [address] [place] [address] Referring DENTAL INSURANCE COORDINATOR 08/05/21 Survey Research Associate Relationship Specialty Start Date End Date Cas Dowell PCP - General Family Practice 02/20/14 Sai Perez MD [address] [place] [address] Primary Staff Physician Cardiology 07/21/21 Rubens Tim, DO [address] [place] [address] Referring DENTAL INSURANCE COORDINATOR 08/05/21 Survey Research Associate Relationship Specialty Start Date End Date Cas Dowell PCP - General Family Practice 02/20/14 Sai Perez MD [address] [place] [address] Primary Staff Physician Cardiology 07/21/21 Rubens Tim, DO [address] [place], [place] [address] Referring DENTAL INSURANCE COORDINATOR 08/05/21 Survey Research Associate Relationship Specialty Start Date End Date Cas Dowell PCP - General Family Practice 02/20/14 Sai Perez MD [address] [place] [address] Primary Staff Physician Cardiology 07/21/21 Rubens Tim, DO [address] [place] [address] Referring DENTAL INSURANCE COORDINATOR 08/05/21 Survey Research Associate Relationship Specialty Start Date End Date Cas Dowell PCP - General Family Practice 02/20/14 Sai Perez MD [address] [place] [address] Primary Staff Physician Cardiology 07/21/21 Rubens Tim, DO [address] [place] [address] Referring DENTAL INSURANCE COORDINATOR 08/05/21 Survey Research Associate Relationship Specialty Start Date End Date Cas Dowell PCP - General Family Medicine 02/20/14 Sai Perez MD [address] [place] [address] Primary Staff Physician Cardiology 07/21/21 Rubens Tim, DO [address] [place] [address] Referring DENTAL INSURANCE COORDINATOR 08/05/21 Survey Research Associate Relationship Specialty Start Date End Date Cas Dowell PCP - General Family Medicine 02/20/14 Sai Perez MD [address] [place] [address] Primary Staff Physician Cardiology 07/21/21 Rubens Tim, DO [address] [place] [address] Referring DENTAL INSURANCE COORDINATOR 08/05/21 Survey Research Associate Relationship Specialty Start Date End Date Cas Dowell PCP - General Family Medicine 02/20/14 Sai Perez MD [address] [place] [address] Primary Staff Physician Cardiology 07/21/21 Rubens Tim, DO [address] [place] [address] Referring DENTAL INSURANCE COORDINATOR 08/05/21 Survey Research Associate Relationship Specialty Start Date End Date Cas Dowell PCP - General Family Medicine 02/20/14 Sai Perez MD [address] [place] [address] Primary Staff Physician Cardiology 07/21/21 Rubens Tim, [address] [place] [address] Referring DENTAL INSURANCE COORDINATOR 08/05/21 Survey Research Associate Relationship Specialty Start Date End Date Cas Dowell PCP - General Family Medicine 02/20/14 Sai Perez MD [address] [place] [address] Primary Staff Physician Cardiology 07/21/21 Rubens Tim, DO [address] [place] [address] Referring DENTAL INSURANCE COORDINATOR 08/05/21 Survey Research Associate Relationship Specialty Start Date End Date Cas Dowell PCP - General Family Medicine 02/20/14 Sai Perez MD [address] [place] [address] Primary Staff Physician Cardiology 07/21/21 Rubens Tim, DO [address] [place], [place] [address] Referring DENTAL INSURANCE COORDINATOR 08/05/21 Survey Research Associate Relationship Specialty Start Date End Date Cas Dowell PCP - General Family Medicine 02/20/14 Sai Perez MD [address] [place] [address] Primary Staff Physician Cardiology 07/21/21 Rubens Tim, DO [address] [place] [address] Referring DENTAL INSURANCE COORDINATOR 08/05/21 Survey Research Associate Relationship Specialty Start Date End Date Cas Dowell PCP - General Family Medicine 02/20/14 Sai Perez MD [address] [place] [address] Primary Staff Physician Cardiology 07/21/21 Rubens Tim, DO [address] [place], [facility]11 Referring DENTAL INSURANCE COORDINATOR 08/05/21 Survey Research Associate Relationship Specialty Start Date End Date Cas Dowell PCP - General Family Medicine 02/20/14 Sai Perez MD [address] [place] [address] Primary Staff Physician Cardiology 07/21/21 Rubens Tim, DO [address] [place], [facility]11 Referring DENTAL INSURANCE COORDINATOR 08/05/21 Survey Research Associate Relationship Specialty Start Date End Date Cas Dowell PCP - General Family Medicine 02/20/14 Sai Perez MD [address] [place] [address] Primary Staff Physician Cardiology 07/21/21 Rubens Tim, DO [address] [place] [address] Referring DENTAL INSURANCE COORDINATOR 08/05/21 Survey Research Associate Relationship Specialty Start Date End Date Cas Dowell PCP - General Family Medicine 02/20/14 Sai Perez MD [address] [place] [address] Primary Staff Physician Cardiology 07/21/21 Rbuens Tim, DO [address] [place], [place] [address] Referring DENTAL INSURANCE COORDINATOR 08/05/21 Survey Research Associate Relationship Specialty Start Date End Date Cas Dowell PCP - General Family [facility] 02/20/14 Sai Perez MD [address] [place] [address] Primary Staff Physician Cardiology 07/21/21 Rubens Tim, DO [address] [place], [facility]11 Referring DENTAL INSURANCE COORDINATOR 08/05/21 Survey Research Associate Relationship Specialty Start Date End Date Cas Dowell PCP - General Family Medicine 02/20/14 Sai Perez MD [address] [place] [address] Primary Staff Physician Cardiology 07/21/21 Rubens Tim, DO [address] [place], [facility]11 Referring DENTAL INSURANCE COORDINATOR 08/05/21 Survey Research Associate Relationship Specialty Start Date End Date Cas Dowell MD PCP - General 09/04/11 Survey Research Associate Relationship Specialty Start Date End Date Cas Dowell PCP - General Family Medicine 02/20/14 Sai Perez MD [address] [place] [address] Primary Staff Physician Cardiology 07/21/21 Rubens Tim, DO [address] [place], [facility]11 Referring DENTAL INSURANCE COORDINATOR 08/05/21 Survey Research Associate Relationship Specialty Start Date End Date Cas Dowell PCP - General Family Medicine 02/20/14 Sai Perez MD [address] [place] [address] Primary Staff Physician Cardiology 07/21/21 Rubens Tim, DO [address] [place], [facility]11 Referring DENTAL INSURANCE COORDINATOR 08/05/21 Survey Research Associate Relationship Specialty Start Date End Date Cas Dowell PCP - General Family Medicine 02/20/14 Sai Perez MD [address] [place] [address] Primary Staff Physician Cardiology 07/21/21 Rubens Tim, DO [address] [place], [facility]11 Referring DENTAL INSURANCE COORDINATOR 08/05/21 Survey Research Associate Relationship Specialty Start Date End Date Cas Dowell PCP - General Family Medicine 02/20/14 Sai Perez MD [address] [place] [address] Primary Staff Physician Cardiology 07/21/21 Rubens Tim, DO [address] [place] [address] Referring DENTAL INSURANCE COORDINATOR 08/05/21 Survey Research Associate Relationship Specialty Start Date End Date Cas Dowell PCP - General Family Medicine 02/20/14 Sai Perez MD [address] [place] [address] Primary Staff Physician Cardiology 07/21/21 Rubens Tim, DO [address] [place], [facility]11 Referring DENTAL INSURANCE COORDINATOR 08/05/21 Survey Research Associate Relationship Specialty Start Date End Date Cas Dowell PCP - General Family Medicine 02/20/14 Sai Perez MD [address] [place] [address] Primary Staff Physician Cardiology 07/21/21 uRbens Tim, DO [address] [place], [facility]11 Referring DENTAL INSURANCE COORDINATOR 08/05/21 Survey Research Associate Relationship Specialty Start Date End Date Cas Dowell PCP - General Family Medicine 02/20/14 Sai Perez MD [address] [place] [address] Primary Staff Physician Cardiology 07/21/21 Rubens Tim, DO [address] [place], [facility]11 Referring DENTAL INSURANCE COORDINATOR 08/05/21 Survey Research Associate Relationship Specialty Start Date End Date Cas Dowell PCP - General Family Medicine 02/20/14 Sai Perez MD [address] [place], [place] [address] Primary Staff Physician Cardiology 07/21/21 Rubens Tim, DO [address] [place], [place] [id number] Referring DENTAL INSURANCE COORDINATOR 08/05/21 Survey Research Associate Relationship Specialty Start Date End Date Cas Dowell PCP - General Family Medicine 02/20/14 Sai Perez MD [address] [place] [address] Primary Staff Physician Cardiology 07/21/21 Rubens Tim, DO [address] [place], [place] [address] Referring DENTAL INSURANCE COORDINATOR 08/05/21 Survey Research Associate Relationship Specialty Start Date End Date Cas Dowell PCP - General Family Medicine 02/20/14 Sai Perez MD [address] [place] [address] Primary Staff Physician Cardiology 07/21/21 Rubens Tim DO [address] [place], [place] [id number] Referring DENTAL INSURANCE COORDINATOR 08/05/21 Survey Research Associate Relationship Specialty Start Date End Date Cas Dow[place] [address] PCP - General Family Medicine 11/18/20 Survey Research Associate Relationship Specialty Start Date End Date Cas Dowell MD PCP - General Family Medicine 12/06/22 Source Comments (unrecognize d section and content) In the event this informatio n is protected by the Federal Confidentiality of Alcohol and Drug Abuse Patient Records regulations: The Federal rules restrict any use of the information to criminally investigate or prosecute any alcohol or drug abuse patient.[facility] the event this information is protected by the Federal Confidentiality of Alcohol and Drug Abuse Patient Records regulations: The Federal rules restrict any use of the information to criminally investigate or prosecute any alcohol or drug abuse patient.[facility] CampusIn the event this information is protected by the Federal Confidentiality of Alcohol and Drug Abuse Patient Records regulations: The Federal rules restrict any use of the information to criminally investigate or prosecute any alcohol or drug abuse patient.[facility] CampusIn the event this information is protected by the Federal Confidentiality of Alcohol and Drug Abuse Patient Records regulations: The Federal rules restrict any use of the information to criminally investigate or prosecute any alcohol or drug abuse patient.[facility] CampusIn the event this information is protected by the Federal Confidentiality of Alcohol and Drug Abuse Patient Records regulations: The Federal rules restrict any use of the information to criminally investigate or prosecute any alcohol or drug abuse patient.[facility] CampusIn the event this information is protected by the Federal Confidentiality of Alcohol and Drug Abuse Patient Records regulations: The Federal rules restrict any use of the information to criminally investigate or prosecute any alcohol or drug abuse patient.[facility] CampusIn the event this information is protected by the Federal Confidentiality of Alcohol and Drug Abuse Patient Records regulations: The Federal rules restrict any use of the information to criminally investigate or prosecute any alcohol or drug abuse patient.[facility] CampusIn the event this information is protected by the Federal Confidentiality of Alcohol and Drug Abuse Patient Records regulations: The Federal rules restrict any use of the information to criminally investigate or prosecute any alcohol or drug abuse patient.[facility] CampusIn the event this information is protected by the Federal Confidentiality of Alcohol and Drug Abuse Patient Records regulations: The Federal rules restrict any use of the information to criminally investigate or prosecute any alcohol or drug abuse patient.[facility] CampusIn the event this information is protected by the Federal Confidentiality of Alcohol and Drug Abuse Patient Records regulations: The Federal rules restrict any use of the information to criminally investigate or prosecute any alcohol or drug abuse patient.[facility] CampusIn the event this information is protected by the Federal Confidentiality of Alcohol and Drug Abuse Patient Records regulations: The Federal rules restrict any use of the information to criminally investigate or prosecute any alcohol or drug abuse patient.[facility] CampusIn the event this information is protected by the Federal Confidentiality of Alcohol and Drug Abuse Patient Records regulations: The Federal rules restrict any use of the information to criminally investigate or prosecute any alcohol or drug abuse patient.[facility] CampusIn the event this information is protected by the Federal Confidentiality of Alcohol and Drug Abuse Patient Records regulations: The Federal rules restrict any use of the information to criminally investigate or prosecute any alcohol or drug abuse patient.[facility] CampusIn the event this information is protected by the Federal Confidentiality of Alcohol and Drug Abuse Patient Records regulations: The Federal rules restrict any use of the information to criminally investigate or prosecute any alcohol or drug abuse patient.[facility] CampusIn the event this information is protected by the Federal Confidentiality of Alcohol and Drug Abuse Patient Records regulations: The Federal rules restrict any use of the information to criminally investigate or prosecute any alcohol or drug abuse patient.[facility] CampusIn the event this information is protected by the Federal Confidentiality of Alcohol and Drug Abuse Patient Records regulations: The Federal rules restrict any use of the information to criminally investigate or prosecute any alcohol or drug abuse patient.[facility] CampusIn the event this information is protected by the Federal Confidentiality of Alcohol and Drug Abuse Patient Records regulations: The Federal rules restrict any use of the information to criminally investigate or prosecute any alcohol or drug abuse patient.[facility] CampusIn the event this information is protected by the Federal Confidentiality of Alcohol and Drug Abuse Patient Records regulations: The Federal rules restrict any use of the information to criminally investigate or prosecute any alcohol or drug abuse patient.[facility] CampusIn the event this information is protected by the Federal Confidentiality of Alcohol and Drug Abuse Patient Records regulations: The Federal rules restrict any use of the information to criminally investigate or prosecute any alcohol or drug abuse patient.[facility] CampusIn the event this information is protected by the Federal Confidentiality of Alcohol and Drug Abuse Patient Records regulations: The Federal rules restrict any use of the information to criminally investigate or prosecute any alcohol or drug abuse patient.[facility] CampusIn the event this information is protected by the Federal Confidentiality of Alcohol and Drug Abuse Patient Records regulations: The Federal rules restrict any use of the information to criminally investigate or prosecute any alcohol or drug abuse patient.[facility] CampusIn the event this information is protected by the Federal Confidentiality of Alcohol and Drug Abuse Patient Records regulations: The Federal rules restrict any use of the information to criminally investigate or prosecute any alcohol or drug abuse patient.[facility] CampusIn the event this information is protected by the Federal Confidentiality of Alcohol and Drug Abuse Patient Records regulations: The Federal rules restrict any use of the information to criminally investigate or prosecute any alcohol or drug abuse patient.[facility] CampusIn the event this information is protected by the Federal Confidentiality of Alcohol and Drug Abuse Patient Records regulations: The Federal rules restrict any use of the information to criminally investigate or prosecute any alcohol or drug abuse patient.[facility] CampusIn the event this information is protected by the Federal Confidentiality of Alcohol and Drug Abuse Patient Records regulations: The Federal rules restrict any use of the information to criminally investigate or prosecute any alcohol or drug abuse patient.[facility] CampusIn the event this information is protected by the Federal Confidentiality of Alcohol and Drug Abuse Patient Records regulations: The Federal rules restrict any use of the information to criminally investigate or prosecute any alcohol or drug abuse patient.[facility] CampusIn the event this information is protected by the Federal Confidentiality of Alcohol and Drug Abuse Patient Records regulations: The Federal rules restrict any use of the information to criminally investigate or prosecute any alcohol or drug abuse patient.[facility] CampusIn the event this information is protected by the Federal Confidentiality of Alcohol and Drug Abuse Patient Records regulations: The Federal rules restrict any use of the information to criminally investigate or prosecute any alcohol or drug abuse patient.[facility] CampusIn the event this information is protected by the Federal Confidentiality of Alcohol and Drug Abuse Patient Records regulations: The Federal rules restrict any use of the information to criminally investigate or prosecute any alcohol or drug abuse patient.[facility] CampusIn the event this information is protected by the Federal Confidentiality of Alcohol and Drug Abuse Patient Records regulations: The Federal rules restrict any use of the information to criminally investigate or prosecute any alcohol or drug abuse patient.[facility] CampusIn the event this information is protected by the Federal Confidentiality of Alcohol and Drug Abuse Patient Records regulations: The Federal rules restrict any use of the information to criminally investigate or prosecute any alcohol or drug abuse patient.[facility] CampusIn the event this information is protected by the Federal Confidentiality of Alcohol and Drug Abuse Patient Records regulations: The Federal rules restrict any use of the information to criminally investigate or prosecute any alcohol or drug abuse patient.[facility] CampusIn the event this information is protected by the Federal Confidentiality of Alcohol and Drug Abuse Patient Records regulations: The Federal rules restrict any use of the information to criminally investigate or prosecute any alcohol or drug abuse patient.[facility] CampusIn the event this information is protected by the Federal Confidentiality of Alcohol and Drug Abuse Patient Records regulations: The Federal rules restrict any use of the information to criminally investigate or prosecute any alcohol or drug abuse patient.[facility] CampusIn the event this information is protected by the Federal Confidentiality of Alcohol and Drug Abuse Patient Records regulations: The Federal rules restrict any use of the information to criminally investigate or prosecute any alcohol or drug abuse patient.[facility] CampusIn the event this information is protected by the Federal Confidentiality of Alcohol and Drug Abuse Patient Records regulations: The Federal rules restrict any use of the information to criminally investigate or prosecute any alcohol or drug abuse patient.[facility] CampusIn the event this information is protected by the Federal Confidentiality of Alcohol and Drug Abuse Patient Records regulations: The Federal rules restrict any use of the information to criminally investigate or prosecute any alcohol or drug abuse patient.[facility] CampusIn the event this information is protected by the Federal Confidentiality of Alcohol and Drug Abuse Patient Records regulations: The Federal rules restrict any use of the information to criminally investigate or prosecute any alcohol or drug abuse patient.[facility] CampusIn the event this information is protected by the Federal Confidentiality of Alcohol and Drug Abuse Patient Records regulations: The Federal rules restrict any use of the information to criminally investigate or prosecute any alcohol or drug abuse patient.[facility] CampusIn the event this information is protected by the Federal Confidentiality of Alcohol and Drug Abuse Patient Records regulations: The Federal rules restrict any use of the information to criminally investigate or prosecute any alcohol or drug abuse patient.[facility] CampusIn the event this information is protected by the Federal Confidentiality of Alcohol and Drug Abuse Patient Records regulations: The Federal rules restrict any use of the information to criminally investigate or prosecute any alcohol or drug abuse patient.[facility] CampusIn the event this information is protected by the Federal Confidentiality of Alcohol and Drug Abuse Patient Records regulations: The Federal rules restrict any use of the information to criminally investigate or prosecute any alcohol or drug abuse patient.[facility] CampusIn the event this information is protected by the Federal Confidentiality of Alcohol and Drug Abuse Patient Records regulations: The Federal rules restrict any use of the information to criminally investigate or prosecute any alcohol or drug abuse patient.[facility] CampusIn the event this information is protected by the Federal Confidentiality of Alcohol and Drug Abuse Patient Records regulations: The Federal rules restrict any use of the information to criminally investigate or prosecute any alcohol or drug abuse patient.[facility] CampusIn the event this information is protected by the Federal Confidentiality of Alcohol and Drug Abuse Patient Records regulations: The Federal rules restrict any use of the information to criminally investigate or prosecute any alcohol or drug abuse patient.[facility] CampusIn the event this information is protected by the Federal Confidentiality of Alcohol and Drug Abuse Patient Records regulations: The Federal rules restrict any use of the information to criminally investigate or prosecute any alcohol or drug abuse patient.[facility] CampusIn the event this information is protected by the Federal Confidentiality of Alcohol and Drug Abuse Patient Records regulations: The Federal rules restrict any use of the information to criminally investigate or prosecute any alcohol or drug abuse patient.[facility] CampusIn the event this information is protected by the Federal Confidentiality of Alcohol and Drug Abuse Patient Records regulations: The Federal rules restrict any use of the information to criminally investigate or prosecute any alcohol or drug abuse patient.[facility] CampusIn the event this information is protected by the Federal Confidentiality of Alcohol and Drug Abuse Patient Records regulations: The Federal rules restrict any use of the information to criminally investigate or prosecute any alcohol or drug abuse patient.[facility] CampusIn the event this information is protected by the Federal Confidentiality of Alcohol and Drug Abuse Patient Records regulations: The Federal rules restrict any use of the information to criminally investigate or prosecute any alcohol or drug abuse patient.[facility] CampusIn the event this information is protected by the Federal Confidentiality of Alcohol and Drug Abuse Patient Records regulations: The Federal rules restrict any use of the information to criminally investigate or prosecute any alcohol or drug abuse patient.[facility] CampusIn the event this information is protected by the Federal Confidentiality of Alcohol and Drug Abuse Patient Records regulations: The Federal rules restrict any use of the information to criminally investigate or prosecute any alcohol or drug abuse patient.[facility] CampusIn the event this information is protected by the Federal Confidentiality of Alcohol and Drug Abuse Patient Records regulations: The Federal rules restrict any use of the information to criminally investigate or prosecute any alcohol or drug abuse patient.[facility] CampusIn the event this information is protected by the Federal Confidentiality of Alcohol and Drug Abuse Patient Records regulations: The Federal rules restrict any use of the information to criminally investigate or prosecute any alcohol or drug abuse patient.[facility] CampusIn the event this information is protected by the Federal Confidentiality of Alcohol and Drug Abuse Patient Records regulations: The Federal rules restrict any use of the information to criminally investigate or prosecute any alcohol or drug abuse patient.[facility] CampusIn the event this information is protected by the Federal Confidentiality of Alcohol and Drug Abuse Patient Records regulations: The Federal rules restrict any use of the information to criminally investigate or prosecute any alcohol or drug abuse patient.[facility] CampusIn the event this information is protected by the Federal Confidentiality of Alcohol and Drug Abuse Patient Records regulations: The Federal rules restrict any use of the information to criminally investigate or prosecute any alcohol or drug abuse patient.[facility] CampusIn the event this information is protected by the Federal Confidentiality of Alcohol and Drug Abuse Patient Records regulations: The Federal rules restrict any use of the information to criminally investigate or prosecute any alcohol or drug abuse patient.[facility] CampusIn the event this information is protected by the Federal Confidentiality of Alcohol and Drug Abuse Patient Records regulations: The Federal rules restrict any use of the information to criminally investigate or prosecute any alcohol or drug abuse patient.[facility] CampusIn the event this information is protected by the Federal Confidentiality of Alcohol and Drug Abuse Patient Records regulations: The Federal rules restrict any use of the information to criminally investigate or prosecute any alcohol or drug abuse patient.[facility] CampusIn the event this information is protected by the Federal Confidentiality of Alcohol and Drug Abuse Patient Records regulations: The Federal rules restrict any use of the information to criminally investigate or prosecute any alcohol or drug abuse patient.[facility] CampusIn the event this information is protected by the Federal Confidentiality of Alcohol and Drug Abuse Patient Records regulations: The Federal rules restrict any use of the information to criminally investigate or prosecute any alcohol or drug abuse patient.[facility] CampusIn the event this information is protected by the Federal Confidentiality of Alcohol and Drug Abuse Patient Records regulations: The Federal rules restrict any use of the information to criminally investigate or prosecute any alcohol or drug abuse patient.[facility] CampusIn the event this information is protected by the Federal Confidentiality of Alcohol and Drug Abuse Patient Records regulations: The Federal rules restrict any use of the information to criminally investigate or prosecute any alcohol or drug abuse patient.[facility] CampusIn the event this information is protected by the Federal Confidentiality of Alcohol and Drug Abuse Patient Records regulations: The Federal rules restrict any use of the information to criminally investigate or prosecute any alcohol or drug abuse patient.[facility] CampusIn the event this information is protected by the Federal Confidentiality of Alcohol and Drug Abuse Patient Records regulations: The Federal rules restrict any use of the information to criminally investigate or prosecute any alcohol or drug abuse patient.[facility] CampusIn the event this information is protected by the Federal Confidentiality of Alcohol and Drug Abuse Patient Records regulations: The Federal rules restrict any use of the information to criminally investigate or prosecute any alcohol or drug abuse patient.[facility] CampusIn the event this information is protected by the Federal Confidentiality of Alcohol and Drug Abuse Patient Records regulations: The Federal rules restrict any use of the information to criminally investigate or prosecute any alcohol or drug abuse patient.[facility] CampusIn the event this information is protected by the Federal Confidentiality of Alcohol and Drug Abuse Patient Records regulations: The Federal rules restrict any use of the information to criminally investigate or prosecute any alcohol or drug abuse patient.[facility] CampusIn the event this information is protected by the Federal Confidentiality of Alcohol and Drug Abuse Patient Records regulations: The Federal rules restrict any use of the information to criminally investigate or prosecute any alcohol or drug abuse patient.[facility] CampusIn the event this information is protected by the Federal Confidentiality of Alcohol and Drug Abuse Patient Records regulations: The Federal rules restrict any use of the information to criminally investigate or prosecute any alcohol or drug abuse patient.[facility] CampusIn the event this information is protected by the Federal Confidentiality of Alcohol and Drug Abuse Patient Records regulations: The Federal rules restrict any use of the information to criminally investigate or prosecute any alcohol or drug abuse patient.[facility] CampusIn the event this information is protected by the Federal Confidentiality of Alcohol and Drug Abuse Patient Records regulations: The Federal rules restrict any use of the information to criminally investigate or prosecute any alcohol or drug abuse patient.[facility] CampusIn the event this information is protected by the Federal Confidentiality of Alcohol and Drug Abuse Patient Records regulations: The Federal rules restrict any use of the information to criminally investigate or prosecute any alcohol or drug abuse patient.[facility] CampusIn the event this information is protected by the Federal Confidentiality of Alcohol and Drug Abuse Patient Records regulations: The Federal rules restrict any use of the information to criminally investigate or prosecute any alcohol or drug abuse patient.[facility] CampusIn the event this information is protected by the Federal Confidentiality of Alcohol and Drug Abuse Patient Records regulations: The Federal rules restrict any use of the information to criminally investigate or prosecute any alcohol or drug abuse patient.[facility] CampusIn the event this information is protected by the Federal Confidentiality of Alcohol and Drug Abuse Patient Records regulations: The Federal rules restrict any use of the information to criminally investigate or prosecute any alcohol or drug abuse patient.[facility] CampusIn the event this information is protected by the Federal Confidentiality of Alcohol and Drug Abuse Patient Records regulations: The Federal rules restrict any use of the information to criminally investigate or prosecute any alcohol or drug abuse patient.[facility] CampusIn the event this information is protected by the Federal Confidentiality of Alcohol and Drug Abuse Patient Records regulations: The Federal rules restrict any use of the information to criminally investigate or prosecute any alcohol or drug abuse patient.[facility] CampusIn the event this information is protected by the Federal Confidentiality of Alcohol and Drug Abuse Patient Records regulations: The Federal rules restrict any use of the information to criminally investigate or prosecute any alcohol or drug abuse patient.[facility] CampusIn the event this information is protected by the Federal Confidentiality of Alcohol and Drug Abuse Patient Records regulations: The Federal rules restrict any use of the information to criminally investigate or prosecute any alcohol or drug abuse patient.[facility] CampusIn the event this information is protected by the Federal Confidentiality of Alcohol and Drug Abuse Patient Records regulations: The Federal rules restrict any use of the information to criminally investigate or prosecute any alcohol or drug abuse patient.[facility] Campus[facility] the event this information is protected by the Federal Confidentiality of Alcohol and Drug Abuse Patient Records regulations: The Federal rules restrict any use of the information to criminally investigate or prosecute any alcohol or drug abuse patient.[facility] CampusIn the event this information is protected by the Federal Confidentiality of Alcohol and Drug Abuse Patient Records regulations: The Federal rules restrict any use of the information to criminally investigate or prosecute any alcohol or drug abuse patient.[facility] FOR RECORDS PERTAINING TO PATIENTS WHO ARE [...] BE BASED ON THE PRIMARY CLINICAL RECORDS. [facility]. provides no warranty or guarantee of the accuracy or completeness of information in this document.
[2023-04-13 08:32] LABS: Estimated Average Glucose 117 mg/dL; Glycohemoglobin A1C 5.7 % (4.5-6.2)
[2023-04-13 08:35] LABS: Microalbumin Urine Random <1.3 mg/dL (<=30.0)
== END 2023-04-13 07:55 | disposition home or self-care (01) ==
LOC: LAB 07:55
PROVIDERS: PCP Family Medicine; Visit Provider Family Medicine
DX: E11.65 Type 2 diabetes mellitus with hyperglycemia (principal)
CPT/HCPCS: 36415; 82043; 83036

== ENCOUNTER 2023-05-10 08:58 | Outpatient (OUT) | payer BC, SELFPAY ==
--- NOTE | 2023-05-10 09:03 | US_ITS ---
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 FINDINGS: RIGHT LOBE: Small lobe with slightly heterogeneous echotexture. No increased vascularity or suspicious nodules. Lobe size: 3.1 x 1.1 x 0.5 cm LEFT LOBE: Small lobe with slightly heterogeneous echotexture. No increased vascularity or suspicious nodules. Lobe size: 3.0 x 0.9 x 0.9 cm ISTHMUS: Normal thickness. Slightly heterogeneous echotexture. Thickness: 2 mm US/US thyroid IMPRESSION: 1. Small thyroid gland similar to prior study. No hypervascularity or suspicious nodules. Electronically authenticated by: HUSAM KIM Date: 05/10/2023 12:35
[2023-05-10 09:52] LABS: Thyroid Stimulating Hormone 0.911 uIU/mL (0.358-3.740)
[2023-05-10 10:42] LABS: Free T4 0.99 ng/dL (0.76-1.46)
== END 2023-05-10 08:59 | disposition home or self-care (01) ==
LOC: RAD 08:59
PROVIDERS: PCP Family Medicine; Visit Provider Nurse Practitioner
DX: E03.8 Other specified hypothyroidism (principal); E06.3 Autoimmune thyroiditis
CPT/HCPCS: 36415; 76536; 84439; 84443

== ENCOUNTER 2023-07-02 00:22 | Emergency (ER) | payer BC, SELFPAY ==
[2023-07-02 00:27] VITALS: BP 126/105; PULSE 79; O2SAT 100
[2023-07-02 00:30] VITALS: PULSE 79; O2SAT 100
[2023-07-02] MEDS: IPRATROPIUM/ALBUTEROL SULFATE 3 ML AMPUL.NEB IH (00:30)
--- OUTSIDE RECORDS SUMMARY | 2023-07-02 00:35 | XMS_ITS | CCD ---
Author Organization [facility] Inform ion [facility] Care Team Providers Care Drone Pilot Name Role Phone Cas Dowell MD Primary Care Provider CAS DOWELL Primary Care Unavailbenito e CANDIDO DAVID Referring Unavailable CAS DOWELL Primary Care Unavailbenito e NABOR YANCEY Referring Unavailable Cas Dowell MD Primary Care Provider Cas Dowell MD Primary Care Provider Cas Dowell Primary Care Provider Ana PEREZ, Sai Unavailable Rubens Tim Unavailable Rubens Tim DO Unavailable Cas Dowell MD Primary Care Provider Cas Dowell Primary Care Provider Ana PEREZ, Sai Unavailable Rubens Tim DO Unavailable Cas Dowell Primary Care Provider Rubens Tim DO Unavailable Cas Dowell Primary Care Provider CAS DOWELL Primary Care Physician CAS DOWELL Primary Care Unavailbenito e Cas Dowell Primary Care Provider [phone] Ana PEREZ, Sai Unavailable [place] MADRIGAL Rubens Vikram Unavailable Cas Dowell MD Primary Care Provider Rubens Tim DO Unavailable MUNIR, FUENTES Referring Unavailable NADERER, CAS Guzman Primary Care Unavailable ANA, SAI Referring Unavailable NADERER, CAS Guzman Primary Care Unavailable GUPETER TEJEDA Referring Unavailable NADERER, CAS Guzman Primary Care [...] Unavailable NADERER, DR CAS Guzman Admitting Unavailable ENOLA, DR BELÉN [employer] Unavailable NADERER, DR [...] Unavailable NADERER, CAS A Primary Care Unavailable AIDENROBYJA Attending Unavailable NADERER, CAS A Primary Care [...] Primary Care Unavailable DOLORES CHAVARRIA Attending Unavailable GRENFELL, BHARGAVI Attending Unavailable NADERER, CAS A Primary Care Unavailable NADERER, CAS A Primary Care Unavailable DEVNANI, MEENA Referring Unavailable GRENFELL, BHARGAVI Attending Unavailable NADERER, CAS A Primary Care Unavailable GRENFELL, BHARGAVI Referring Unavailable DEVNANI, MEENA Attending Unavailable NADERER, CAS A Primary Care Unavailable ANAMICHEAL Attending Unavailable NADERER, CAS A Primary Care Unavailable NADERER, CAS A Primary Care Unavailable ABHYANKAR, FUENTES Attending Unavailable BHARGAVI SALDANA Attending Unavailable NADERER, CAS Guzman Primary Care Unavailable NADERER, CAS Guzman Primary Care Unavailable NADERER, CAS Guzman Primary Care Unavailable DEVNANIMEENA Attending Unavailable NADERER, CSA A Primary Care Unavailable ABHYANKAR, FUENTES Attending Unavailable ABHYANKAR, FUENTES Referring Unavailable NADERER, CAS Guzman Primary Care Unavailable ABHYANKAR, FUENTES Referring Unavailable ABHYANKAR, FUENTES Attending Unavailable NADERER, CAS A Primary Care Unavailable CHAYO MARTINS Admitting Unavailable ELIEZER, CHAYO CASILLAS Attending Unavailable NADERER, CAS ALEX Primary Care Unavailabl e FRANTZ, LIV Consulting Unavailable NADERER, CAS ALEX Primary Care Unavailabl e ANDSEAN BOWMAN Attending Unavailable NADERER, CAS ALEX Primary Care Unavailabl e NADERER, CAS ALEX Primary Care Unavailabl e NADERER, CAS ALEX Primary Care Unavailabl e YAO, AKILA Referring Unavailable NADERER, CAS ALEX Primary Care Unavailabl e YAO, AKILA Referring Unavailable MACRINA WADSWORTH Attending Unavailable KARABIN, MACRINA Attending Unavailable KARABIN, MACRINA Attending Unavailable KARABIN, MACRINA Attending Unavailable ABEL STEPHON Admitting Unavailable ABEL, STEPHON Attending Unavailable ANGELIKA CORONEL Attending Unavailable ANGELIKA CORONEL Attending Unavailable Cas Dowell MD Primary Care Provider Tesfaye MASON R Attending Unavailable NILTesfaye Lewis R Attending Unavailable LACEYERER, CAS Referring Unavailable NILLTesfaye R Attending Unavailable TEJLORAINE E Attending Unavailable TEJLORAINE Attending Unavailable TEJLORAINE CASTRO Attending Unavailable Cas Dowell MD Primary Care Provider [phone] William PEREZ, Phillip Guerra Attending Unavailable Grayson [...] PEREZ, Phillip Guerra Attending Unavailable Cas Dowell MD Primary Care Unavail able CAS DOWELL Attending Unavailable CAS DOWELL Attending Unavailable SARAH BEST Attending Unavailable CAS DOWELL Referring Unavailable CAS DOWELL Primary Care Unavailable Allergies Allergy Classification Reported Allergen(s) Allergy Type Date of Onset Reaction(s) Facility Aluminum aspirin (1 source) Aluminum aspirin Drug Allergy 09-04-19 12 [facility] Cephalosporins (antibiotic) (2 sources) Cefaclor Drug Allergy 09-04-19 12 Shortness Of Breath, Rash [facility] Phone: drospirenone / Ethinyl Estradiol (1 source) drospirenone / Ethinyl Estradiol Drug Allergy 09-04-19 12 [facility] Phone: Ethinyl Estradiol / Norethindrone (1 source) Ethinyl Estradiol / Norethindrone Drug Allergy 09-04-19 12 [facility] [facility] Phone: Latex (1 source) Latex Substance Allergy 09-04-19 12 Swelling, [facility] [employer] Phone: Macrolides (antibiotic) (1 source) Erythromycin Drug Allergy 09-04-19 12 Shortness Of Breath [facility] Phone: NSAIDs (1 source) Ibuprofen Drug Allergy 09-04-19 12 [facility] Phone: Penicillins (antibiotic) (1 source) Penicillins Drug Allergy 09-04-19 12 [facility] [employer] Phone: rofecoxib (1 source) rofecoxib Drug Allergy 09-04-19 12 [facility] Phone: Sulfonamides (antibiotic) (1 source) Sulfonamides (Antibiotic) Drug Allergy 03-21-19 16 [facility] Unclassified (8 sources) Clindamycin/Lincomy juan Propensity to adverse reactions to drug 09-04-19 12 [facility] [employer] Phone: Unclassified (20 sources) Iodides; Translations: [IODIDES] Propensity to adverse reactions to drug 09-04-19 12 Unknown, Anaphylaxis [facility] Phone: Unclassified (9 sources) Lavender Oil Propensity to adverse reactions to drug 06-14-19 21 Anaphylaxis [facility] (13 sources) Aluminum aspirin; Translations: [ASPIRIN] Drug Allergy 09-04-19 12 Rash, Angioedema, Unknown [facility] (20 sources) Cefaclor; Translations: [cefaclor] Drug Allergy 09-04-19 12 Shortness Of Breath, Anaphylaxis, Swelling, Unknown (qualifier value) [facility] Phone: (20 sources) Cefuroxime; Translations: [CEFUROXIME AXETIL] Drug Allergy 09-04-19 12 Rash, Unknown, Shortness of Breath [facility] Phone: (20 sources) drospirenone / Ethinyl Estradiol; Translations: [DROSPIRENONE-ETHIN YL ESTRADIOL] Drug Allergy 09-04-19 12 Unknown, Other: See Comments [facility] Phone: (20 sources) Erythromycin; Translations: [ERYTHROMYCIN] Drug Allergy 09-04-19 12 Shortness Of Breath, Swelling, Unknown [facility] [facility] Phone: (9 sources) Ethinyl Estradiol / Norethindrone Drug Allergy 09-04-19 12 [employer] Phone: (14 sources) Ibuprofen; Translations: [ibuprofen] Drug Allergy 09-04-19 12 Unknown (qualifier value), Rash, Unknown [facility] (20 sources) Latex; Translations: [LATEX] Propensity to adverse reactions to drug 09-04-19 12 Swelling, Rash, Itching, Unknown, Eruption of skin (disorder) [facility] Phone: (10 sources) Penicillins; Translations: [PENICILLINS] Propensity to adverse reactions to drug 09-04-19 12 Rash [facility] [facility] Phone: (20 sources) rofecoxib Drug Allergy 09-04-19 12 Unknown, Rash [employer] Phone: (6 sources) Sulfonamides (Antibiotic) Propensity to adverse reactions to drug 03-21-19 16 [facility] (20 sources) Aspirin; Translations: [aspirin] Drug Allergy 09-04-19 12 Unknown, Angioedema, Unknown (qualifier value), Rash [facility] (20 sources) Clindamycin; Translations: [clindamycin] Drug Allergy 02-23-19 15 Swelling, Shortness of Breath, Rash, Unknown (qualifier value) [facility] (20 sources) Contrast media; Translations: [CONTRAST DYE] Drug Allergy 09-04-19 12 Anaphylaxis [facility] (20 sources) Naproxen; Translations: [NAPROXEN] Drug Allergy 09-07-19 21 Swelling, Angioedema [facility] (19 sources) Penicillins Propensity to adverse reactions to drug 02-23-19 15 Rash, Itching [facility] (20 sources) Sulfonamides (Antibiotic); Translations: [SULFA (SULFONAMIDE ANTIBIOTICS)] Drug Allergy 03-21-19 16 Swelling, Shortness of Breath [facility] (20 sources) Lavender (Lavandula Angustifolia); Translations: [LAVENDER (LAVANDULA ANGUSTIFOLIA)] Drug Allergy 06-14-19 21 Anaphylaxis [facility] (4 sources) Eucalyptus oil Drug Allergy 10-24-19 21 [facility] (20 sources) gatifloxacin; Translations: [GATIFLOXACIN] Drug Allergy 12-22-19 15 Diarrhea [facility] Work Phone: (18 sources) Norethindrone-Ethin Estradiol; Translations: [NORETHINDRONE-ETHI N ESTRADIOL] Propensity to adverse reactions to drug 06-09-19 22 Unknown [facility] (20 sources) Eucalyptus extract; Translations: [EUCALYPTUS] Drug Allergy 10-24-19 21 Anaphylaxis [facility] (20 sources) levoFLOXacin; Translations: [LEVOFLOXACIN] Drug Allergy 11-12-19 21 Rash [facility] (20 sources) metroNIDAZOLE; Translations: [METRONIDAZOLE] Drug Allergy 03-02-19 22 Unknown [facility] (20 sources) Sulfamethoxazole / Trimethoprim; Translations: [SULFAMETHOXAZOLE-T RIMETHOPRIM] Drug Allergy 01-24-20 14 Unknown, Other (See Comments) [facility] (20 sources) Fish; Translations: [FISH CONTAINING PRODUCTS] Drug Allergy 07-26-19 22 Hives [facility] Work Phone: (20 sources) Shellfish; Translations: [SHELLFISH DERIVED] Drug Allergy 07-26-19 22 Hives [facility] Work Phone: (20 sources) Penicillins Propensity to adverse reactions to drug 09-04-19 12 Rash, Itching [facility] (20 sources) Penicillin G; Translations: [PENICILLIN G BENZATHINE] Drug Allergy 08-19-19 22 Unknown [facility] Work Phone: (6 sources) Iodine; Translations: [iodine] Drug Allergy 05-25-19 23 Unknown (qualifier value) [facility] (6 sources) Macrolides (Antibiotic); Translations: [macrolide antibiotics] Drug allergy 09-04-19 12 Allergy - specialty (qualifier value) [facility] (6 sources) Penicillin; Translations: [penicillin] Drug Allergy Unknown (qualifier value) [facility] (6 sources) Sulfonamides (Antibiotic); Translations: [sulfa drugs] Drug allergy Allergy - specialty (qualifier value) [facility] (11 sources) valACYclovir; Translations: [valacyclovir] Drug Allergy 10-06-19 22 Anaphylaxis (disorder), Shortness Of Breath, Anaphylaxis [facility] (9 sources) Povidone-Iodine; Translations: [povidone iodine topical] Drug Allergy 05-25-19 23 Eruption of skin (disorder), Rash [facility] (2 sources) Seafood Propensity to adverse reactions to drug 01-09-20 22 Hives, Rash [facility] Work Phone: (5 sources) rofecoxib; Translations: [ROFECOXIB] Drug Allergy 09-04-19 12 Rash, Unknown [facility] Rep[facility] (4 sources) IODINATED CONTRAST MEDIA; Translations: [IODINATED CONTRAST MEDIA] Propensity to adverse reactions to drug (disorder) 02-23-19 15 [facility] Repository (1 source) Aspirin Drug Allergy 03-12-19 15 [facility] Repository (3 sources) Cefaclor; Translations: [Ceclor] Drug Allergy 03-12-19 15 [facility] (2 sources) Cefuroxime; Translations: [Ceftin] Drug Allergy 03-12-19 15 [facility] (1 source) Clindamycin Drug Allergy 03-12-19 15 [facility] (1 source) Erythromycin Drug Allergy 03-12-19 15 [facility] (1 source) Eucalyptus extract Drug Allergy 10-24-19 21 [facility] (1 source) gatifloxacin Drug Allergy 12-22-19 15 [facility] (2 sources) Ibuprofen; Translations: [Motrin] Drug Allergy [facility] (1 source) Iodine (And Iodine Containting Drugs) Drug allergy (disorder) 03-12-19 15 [facility] (1 source) Latex Drug allergy (disorder) 03-12-19 15 [facility] (1 source) levoFLOXacin Drug Allergy 11-12-19 21 [facility] (1 source) Naproxen Drug Allergy 08-07-19 21 [facility] (1 source) Penicillins Drug allergy (disorder) 03-12-19 15 [facility] (1 source) rofecoxib Drug Allergy 03-12-19 15 [facility] (1 source) Sulfamethoxazole / Trimethoprim Drug Allergy 02-23-19 21 [facility] (1 source) Sulfonamides (Antibiotic) Drug allergy (disorder) 03-12-19 15 [facility] (1 source) valACYclovir Drug Allergy [facility] (5 sources) buPROPion; Translations: [BUPROPION] Drug Allergy 06-22-19 23 Other (See Comments) [facility] Rep[facility] (2 sources) dimethicone; Translations: [DIMETHICONE] Drug Allergy 07-08-19 23 [facility] (2 sources) Ibuprofen; Translations: [IBUPROFEN] Drug Allergy 09-04-19 12 [facility] (5 sources) Menthol; Translations: [MENTHOL] Drug Allergy 02-27-19 23 Hives [facility] (4 sources) natural latex rubber; Translations: [LATEX, NATURAL RUBBER] Propensity to adverse reactions to drug (disorder) 09-04-19 12 Swelling, Itching, Rash [facility] (5 sources) zolpidem; Translations: [ZOLPIDEM] Drug Allergy 05-25-19 23 Other (See Comments), Unknown [facility] (4 sources) GLOVES, LATEX WITH ALOE VERA; Translations: [GLOVES, LATEX WITH ALOE VERA] Propensity to adverse reactions to drug (disorder) 08-19-19 22 [facility] (2 sources) NORETHINDRONE AC-ETH ESTRADIOL; Translations: [NORETHINDRONE AC-ETH ESTRADIOL] Propensity to adverse reactions to drug (disorder) 09-04-19 12 [facility] (3 sources) Sulfamethoxazole; Translations: [SULFAMETHOXAZOLE] Drug Allergy 08-19-19 22 [facility] (1 source) Cefuroxime Drug Allergy 07-08-19 23 [facility] (1 source) Fish - dietary Allergy to substance 07-26-19 22 Hives [facility] (1 source) Gatifloxacin Allergy to substance 12-22-19 15 Diarrhea [facility] (1 source) Latex Allergy to substance 09-04-19 12 Itching, Rash, Swelling, Unknown [facility] (1 source) Penicillins Drug Intolerance 09-04-19 12 Itching, Rash [facility] (1 source) Galcanezumab-Gnlm Propensity to adverse reactions 07-08-19 23 [facility] (1 source) Norethindrone-Eth Estradiol Drug Intolerance 09-04-19 12 [facility] (1 source) CT dye and contrast; Translations: [CT dye and contrast] Propensity to adverse reactions (disorder) [facility] Repository Medications Current Medications Medication Drug [...] every four hours as needed for headache gvubozphjx-dbyynvwadhhwl-jjtonfso (FIORICET) 50-325-40 MG per tablet Take 1 [...] pain 6 tablet 0 05/20/2021 05/22/2021 Active [id number] 200 actuat albuterol 0.09 mg/actuat metered dose [...] Start: 04-29-2021 take 1 tablet by shaji once daily VITAMIN D-3 125 mcg (5,000 unit) tab Take 5,000 Units by mouth once daily. 0 04/29/2021 Active take 1 capsule by mo ut in the morning cholecalciferol (Vitamin D-3) 125 MCG (5000 UT) capsule Take 5,000 Units by mouth in the morning. 0 Active Cholecalciferol (VITAMIN D3) 50 MCG (2000 UT) CAPS Take by mouth 0 Active Comment on above: Take 5,000 Units by mouth once daily. cholecalciferol, vitamin D3, (VITAMIN D3 ORAL) (2 sources) cholecalciferol, vitamin D3, (VITAMIN D3 ORAL) Take 1 capsule by mouth. 0 Active ciprofloxacin 250 mg oral tablet (2 sources) Quinolone Antimicrobial Start: 12-22-19 22 take 1 tablet by mouth once daily Cipro 250 mg Tab See Instructions, 1 tab po day prior to procedure. 1 tab po following procedure., # 2 tab(s), Refills(s) 0, Pharmacy: [facility]/pharmacy #[id number], 162, cm, 12/21/21 8:50:00 EST, Height/Length Dosing, 99, kg, 12/21/21 8:50:00 EST, Weight Dosing Start Date: 12/21/21 Status: Ordered 12 hr dextromethorphan hydrobromide 30 mg / guaiFENesin 600 mg extended release oral tablet (1 source) Uncompetitive Z-piuzcz-J-aspartate Receptor Antagonist, Sigma-1 Agonist take 30-600 mg [...] (FLONASE) 50 mcg/actuation nasal spray Use 1 [place] in each nostril twice daily. 3 Each 07/14/2021 10/19/2021 Active take 2 spray(s) nasa l route once daily fluticasone (VERAMYST) 27.5 mcg/actuation nasal spray Administer 2 sprays into each nostril once daily. 0 Active take 2 spray(s) nasa l route in the morning fluticasone (Flonase Sensimist) 27.5 MCG/SPRAY nasal spray Administer 2 sprays into each nostril in the morning. 0 Active Fluticasone Furo ate (FLONASE SENSIMIST) 27.5 mcg/actuation nasal spray 1 spray in each nostril 0 Active Comment on above: Use 1 [place] in each nostril twice daily. 1 spray [...] auto-injector (20 sources) Start: 10-05-2022 fremanezumab-v frm (TrackIFSUSHILAPrivacyCentral 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) 225 mg/1.5 mL Inject 1.5 mL [...] every month. Do not shake. 1.5 mL 10/19/2021 Active Comment on above: Inject 1.5 [...] breath. 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 90 tablet 3 10/12/2022 Active Start: 01-18-2022 take 0.5 tablet by [...] hyperglycemia, without long-term current use of insulin ([facility]) Take 1 tablet (5 mg) by mouth in the morning. 90 tablet 3 01/16/2023 Active LORazepam 0.5 mg oral tablet (20 sources) Benzodiazepine Start: 06-29-19 End: 03-10-19 23 take 1 tablet by mouth at bedtime LORazepam (ATIVAN) 0.5 MG tablet TAKE 1 TABLET BY MOUTH AT BEDTIME 0 06/28/2021 Active Start: 06-04-2021 End: 06-04-2021 LORazepam (ATIVAN) injection 1 mg End: 04-15-2022 take 1 tablet by mouth twice daily [...] Active ondansetron 4 mg disintegrating oral tablet (8 sources) Serotonin-3 Receptor Antagonist Start: 01-18-2022 take [...] pantoprazole 40 mg delayed release oral tablet (3 sources) Proton Pump Inhibitor pantoprazo le (PROTONIX) 40 mg EC tablet Take by mouth daily. 0 Active perflutren lipid microspheres 1.3 mL in NaCl (PF) 0.9% 10 mL injection (DEFINITY) (20 sources) Start: 07-21-2021 End: 10-20-2022 perflutren lipid microspheres 1.3 mL in NaCl (PF) 0.9% 10 mL injection (DEFINITY) predniSONE 10 mg oral tablet (12 sources) Start: 01-11-2022 predniSONE (DELTASONE) 10 MG tablet 4 tabs [...] Start: 08-24-2021 take 2 tablets by mo [facility] in the morning, then take 2 tablets [...] daily. pyridostigmine bromide 60 mg oral tablet (5 sources) Start: 07-21-2022 End: 07-21-2023 pyridostigmine (MESTINON) [...] mouth daily at bedtime. 0 06/11/2019 Active take 0.5 tablet by m outh in the morning sertraline (ZOLOFT) 100 mg tablet Take 0.5 tablets (50 mg total) by mouth in the morning. 0 Active sertraline (Zolo ft) 50 MG tablet Take by mouth Daily. 0 Active sertraline (ZOLO FT) 100 MG [...] stone, # 30 tab(s), Refills(s) 1, Pharmacy: [facility]/pharmacy #[id number], 162, cm, 09/05/22 8:28:00 EDT, [...] HOURS vitamin b12 1 mg sublingual tablet (3 sources) Vitamin B12 Start: take 1 tablet [...] on above: Take 1 capsule by mo [facility] once daily. Completed/Discontinued Medications Medication Drug Class(es) [...] hydrochloride 0.137 mg/actuat metered dose nasal spray (4 sources) Histamine-1 Receptor Antagonist Start: take 1 [...] needed. 0 Active take 2 tablets by [facility] every six hours as needed diphenhydrAMINE (BENADRYL) [...] Comment on above: TAKE 1 CAPSULE BY [facility] TWICE A DAY FOR 10 DAYS 1 [...] mg/mL injection 0.3 mg 168 hr estradiol 0.70617 mg/hr transdermal system (4 sources) Estrogen Start: [...] (4 sources) Central alpha-2 Adrenergic Agonist Start: End: 2 take 1 tablet by mouth [...] Onset: 2 Chronic Diabetes mellitus without complication (8 sources) Type 2 diabetes mellitus; Translations: [Diabetes [...] 2 Resolved: 3 Episodic Headache; including migraine (11 sources) Chronic intractable migraine without aura; Translations: [Chronic migraine without aura, intractable, without status migrainosus] Onset: 1 Chronic Headache; including migraine (4 sources) Headache; including migraine; Translations: [HEADACHE UNSPECIFIED] Onset: 2 Inflammatory diseases of female pelvic organs (1 source) Hydrosalpinx; Translations: [Chronic salpingitis] Chronic Mood disorders (6 sources) Depressive disorder; Translations: [Depression, unspecified depression type] Onset: 1 Chronic Nausea and vomiting (1 source) Intractable nausea and vomiting; Translations: [Nausea with vomiting, unspecified] Episodic Nutritional deficiencies (6 sources) Vitamin D deficiency; Translations: [Vitamin D deficiency, unspecified] Onset: 3 12-16-2021 Chronic Other aftercare (1 source) Other advertising account representative (current) drug therapy; Translations: [OTH PARTS SALES MANAGER CURRENT DRUG THERAPY] Onset: 3 Episodic Other [...] Onset: 2 Chronic Other infections; including parasitic (2 sources) Post-viral disorder; Translations: [Sequelae of other specified [...] 6 04-07-2015 Chronic Other nervous system disorders (4 sources) Disorder of autonomic nervous system; Translations: [Disorder of the autonomic nervous system, unspecified] Onset: 2 Chronic Other nervous system disorders (1 source) Circadian rhythm sleep disorder of shift work type; Translations: [Circadian rhythm sleep disorder, 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 Other nervous system disorders (6 sources) Arachnoid cyst; Translations: [Cerebral cysts] Onset: [...] side] Onset: 3 Episodic Residual codes; unclassified (4 sources) Obstructive sleep apnea syndrome; Translations: [Obstructive [...] pattern] Onset: 2 Chronic Residual codes; unclassified (3 sources) Hypersomnia with sleep apnea; Translations: [Hypersomnia, [...] malaise] Onset: 03-02-2021 05-24-2021 Episodic Mood disorders (2 sources) Mood disorders Onset: 01-04-2023 01-04-2023 Nonmalignant breast conditions (2 sources) Unspecified lump in axillary tail of the left breast; Translations: [Unspecified lump in axillary tail of the right breast] Onset: 10-23-2021 Episodic Nonspecific chest pain (12 sources) Chest pain; Translations: [Chest pain, unspecified] [...] 05-24-2021 05-24-2021 Episodic Other connective tissue disease (2 sources) Unspecified symptoms and signs involving the nervous system; Translations: [Other symptoms involving nervous and musculoskeletal systems] Onset: 03-02-2021 03-02-2021 Episodic Other connective tissue disease (3 sources) Muscle spasm of cervical muscle of neck; Translations: [Other muscle spasm] Onset: 03-02-2021 03-02-2021 Episodic Other lower respiratory disease (1 source) Dyspnea, unspecified; Translations: [Dyspnea, unspecified] Onset: 01-08-2022 Episodic Other nervous system disorders (2 sources) Impaired cognition; Translations: [Other symptoms and signs involving cognitive functions and awareness] Onset: 03-02-2021 03-02-2021 Episodic Other nervous system disorders (3 sources) Word finding difficulty ; Translations: [Other [...] ORGN] Onset: 10-23-2021 Episodic Residual codes; unclassified (3 sources) Memory impairment; Translations: [Other amnesia] Onset: 03-02-2021 03-02-2021 Episodic Spondylosis; intervertebral disc disorders; other back problems (4 sources) Pain in thoracic spine; Translations: [Neck [...] covid-19 condition, unspecified] Onset: 05-24-2022 Viral infection (7 sources) Disease caused by 2019-nCoV; Translations: [COVID-19] [...] LORAINE RUBALCAVA PA-C Where: [facility] [place] Normal [facility] General Surgery Office/Clini c Noteon 02-13-2023 [...] BID, # 60 tab(s), Refills(s) 3, Pharmacy: [facility]/pharmacy #[id number], 162, cm, 01/04/23 9:06:00 EST, Height/Length Dosing, 100.5, kg, 01/04/23 9:06:00 EST, Weight Dosing E&M of Est. Patient Low 20-29 Min 36348 3. BMI 38.0-38.9,adult (Z68.38: Body mass index [BMI] 38.0-38.9, adult) recommend diet and exercise. Ordered: E&M of Est. Patient Low 20-29 Min 38627 Follow-up No qualifying data available Problem List/Past [...] Sister. Heart disease: (more content not included)... [facility] Comment on above: Result Comment: Elec tronically Signed By: MARLON PEREZ, Tesfaye Richard\Date and Time Signed: 02/13/23 09:58 EST Operative Reporton Operative Report [id number]#1.00TIFF [facility] Lab Reportson 01-31-2023 Lab Reports [id number]#1.00TIFF [facility] Consultation Noteon 01-27-20 23 Consultation Note [id number]#[id number] [facility] Office Visiton 01-10-2023 Follow-up visit [id number] Megan Tran 1985 F Date Provider Department Center 01/10/2023 MACRINA FISCHER [facility] [place] [facility] Family History Problem Relation [...] Alive Son Alive Son Alive Level of Service:64710 DC OFFICE/OUTPATIENT ESTABLISHED LOW MDM 20-29 MIN Normal [facility] Insurance Correspondenceon 1 03-11-2022 Insurance Correspondence [id number]#[id number] Normal [facility] Ambulatory Visit Summaryon 1 03-06-2022 Ambulatory [...] LORAINE RUBALCAVA PA-C Where: [facility] Ambulatory Visit Summary LEANA TRAN :1985 Visit [...] LORAINE RUBALCAVA PA-C Where: [facility] Consent for Procedure/Surger yon 01-04-2023 Consent for Procedure/Surgery [id number]#[id number] [facility] Hemoglobin [id number] By: Alize Kong on 01-01-2023 [facility] Office Visiton 01-01-2023 Follow-up visit [id number] Megan Tran 1985 F Date Provider Department Center 01/01/2023 Danish-ANGELIKA CORONEL [facility] Family History Problem Relation Age of [...] Alive Son Alive Son Alive Level of Service:11554 DC OFFICE/OUTPATIENT ESTABLISHED [facility] 10-19 MIN [facility] 36on 12-25-2022 36 Pt calls stating yareli t she was seen 12/18 at ER for Chest pain an EKG was done and she would like to discuss her results. Normal [facility] Telephoneon 12-25-2022 Telephone [id number] Megan Tran 1985 F Date Provider Department Center 12/25/2022 MACRINA FISCHER [facility]ARD [facility] Family History Problem Relation [...] Son Alive Son Alive Son Alive Normal [facility] XR CHEST PORTABLEon 12-20-19 XR CHEST [...] Juan Kidd MD 12/19/22 Final result Normal [facility] Basic Metabolic Profon 12-18 Anion gap [Moles/Vol] 10 mmol/L Normal 10-22 [facility] Comment on above: Performed By: #### B BARON, ANTHONY, ABIEL #### [facility] [address] [place] [address] Heating Engineer: Belén Dale MD BUN/CRE Ratio 12 Normal 10-25 [facility] Comment on above: Performed By: #### B MP, CDP, TROPI #### [facility] [address] [place], [place] [address] Heating Engineer: Belén Dale MD Calcium [Mass/Vol] 9.5 mg/dL Normal 8.6-10.4 [facility] Comment on above: Performed By: #### B MP, CDP, TROPI #### [facility] [address] [place], [place] [address] Heating Engineer: Belén Dale MD Chloride [Moles/Vol] 102 mmol/L Normal 98-107 [facility] Comment on above: Performed By: #### B MP, CDP, TROPI #### [facility] [address] [place], [place] [address] Heating Engineer: Belén Dale MD CO2 [Moles/Vol] 26 mmol/L Normal 20-31 [facility] Comment on above: Performed By: #### B MP, CDP, TROPI #### [facility] [address] [place] [address] Heating Engineer: Belén Dale MD Creatinine [Mass/Vol] 1.0 mg/dL High 0.5-0.9 [facility] Comment on above: Performed By: #### B MP CDP, TROPI #### [facility] [address] [place], [place] [address] Heating Engineer: Belén Dale MD GFR/1.73 sq M.predicted among non-blacks MDRD (S/P/Bld) [Vol rate/Area] mL/min/{1.73_m2} Normal >60 [facility] Comment on above: Result Comment: These [...] By: #### B ANTHONY DRAPER, TROPI #### [facility] [address] [place], [place] [address] Heating Engineer: Belén Dale MD Glucose [Mass/Vol] 97 mg/dL Normal 70-99 [facility] Comment on above: Performed By: #### B ANTHONY DRAPER, TROPI #### [facility] [address] [place] [address] Heating Engineer: Belén Dale MD Potassium [Moles/Vol] 4.0 mmol/L Normal 3.7-5.3 [facility] Comment on above: Performed By: #### B ANTHONY DRAPER, TROPI #### [address] [place], [place] [address] Heating Engineer: Belén Dale MD Sodium [Moles/Vol] 138 mmol/L Normal 135-144 [facility] Comment on above: Performed By: #### B ANTHONY DRAPER, TROPI #### [address] [place], [place] [address]383 Heating Engineer: Belén Dale MD Urea nitrogen [Mass/Vol] 12 mg/dL Normal 6-20 [facility] Comment on above: Performed By: #### B ANTHONY DRAPER, TROPI #### [address] [place], [place] [address]483 Heating Engineer: Belén Dale MD CBC with Diffon 12-18-2022 Abs. Basophil 0.04 k/uL Normal 0.00-0.20 [facility] Comment on above: Performed By: #### B ANTHONY DRAPER, TROPI #### [facility] [address] [place], [place] [address] Heating Engineer: Belén Dale MD Abs.Imm.Granulocyte 0.04 k/uL Normal 0.00-0.30 [facility] Comment on above: Performed By: #### B BARON CDP, TROPI #### [facility] [address] [place] [address] Dr[address] [place], [place] [address] Heating Engineer: Belén Dale MD Abs.Neutrophil (Seg) 5.01 k/uL Normal 1.50-8.10 [facility] Comment on above: Performed By: #### B BARON CDP, TROPI #### [address] [place], [place] [address] Heating Engineer: Belén Dale MD Basophils/100 WBC (Bld) 1 % Normal 0-2 [facility] Comment on above: Performed By: #### B ANTHONY DRAPER, TROPI #### [address] [place], [place] [address] Heating Engineer: Belén Dale MD Eosinophils (Bld) [#/Vol] 0.19 10*3/uL Normal 0.00-0.44 [facility] Comment on above: Performed By: #### B ANTHONY DRAPER, TROPI #### [address] [place], [place] [address] Heating Engineer: Belén Dale MD Eosinophils/100 WBC (Bld) 3 % Normal 1-4 [facility] Comment on above: Performed By: #### B ANTHONY DRAPER, TROPI #### [address] [place], [place] [address] Heating Engineer: Belén Dale MD Erythrocyte distribution width (RBC) [Ratio] 11.6 % Low 11.8-14.4 [facility] Comment on above: Performed By: #### B BARON CDP, TROPI #### [address] [place], [facility]83 Heating Engineer: Belén Dale MD Hematocrit (Bld) [Volume fraction] 44.3 % Normal 36.3-47.1 [facility] Comment on above: Performed By: #### B BARON CDP, TROPI #### [facility] [address] [place] [address] Dr[address] [place], [place] 8507383 Heating Engineer: Belén Dale MD Hemoglobin (Bld) [Mass/Vol] 14.8 g/dL Normal 11.9-15.1 [facility] Comment on above: Performed By: #### B MP, CDP, TROPI #### [address] [place], [facility]83 Heating Engineer: Belén Dale MD Immature granulocytes/100 WBC (Bld) 1 % High 0 [facility] Comment on above: Performed By: #### B BARON CDP, TROPI #### [address] [place], [facility]83 Heating Engineer: Belén Dale MD Lymphocytes (Bld) [#/Vol] 1.71 10*3/uL Normal 1.10-3.70 [facility] Comment on above: Performed By: #### B BARON CDP, TROPI #### [address] [place], [facility]83 Heating Engineer: Belén Dale MD Lymphocytes/100 WBC (Bld) 23 % Low 24-43 [facility] Comment on above: Performed By: #### B ANTHONY DRAPER, TROPI #### [address] [place], [place] [address] Heating Engineer: Belén Dale MD MCH (RBC) [Entitic mass] 29.0 pg Normal 25.2-33.5 [facility] Comment on above: Performed By: #### B BARON CDP, TROPI #### [address] [place], [place] [address]183 Heating Engineer: Belén Dale MD MCHC (RBC) [Mass/Vol] 33.4 g/dL Normal 28.4-34.8 [facility] Comment on above: Performed By: #### B BARON CDP, TROPI #### [facility] [address] [place], [place] [address] Heating Engineer: Belén Dale MD MCV (RBC) [Entitic vol] 86.9 fL Normal 82.6-102.9 [facility] Comment on above: Performed By: #### B ANTHONY DRAPER, TROPI #### [facility] [address] [place], [place] [address] Heating Engineer: Belén Dale MD Monocytes (Bld) [#/Vol] 0.44 10*3/uL Normal 0.10-1.20 [facility] Comment on above: Performed By: #### B ANTHONY DRAPER, TROPI #### [address] [place] [address]83 Heating Engineer: Belén Dale MD Monocytes/100 WBC (Bld) 6 % Normal 3-12 [facility] Comment on above: Performed By: #### B ANTHONY DRAPER, TROPI #### [address] [place], [place] [address]283 Heating Engineer: Belén Dale MD Neutrophil (Seg) 66 % High 36-65 [facility] Comment on above: Performed By: #### B ANTHONY DRAPER, TROPI #### [address] [place], [place] [address]383 Heating Engineer: Belén Dale MD NRBC Automated 0.0 per 100 WBC Normal 0.0 [facility] Comment on above: Performed By: #### B ANTHONY DRAPER, TROPI #### [facility] [address] [place], [place] [address]83 Heating Engineer: Belén Dale MD Platelet mean volume (Bld) [Entitic vol] 9.9 fL Normal 8.1-13.5 [facility] Comment on above: Performed By: #### B ANTHONY DRAPER, TROPI #### [address] [place] [address]783 Heating Engineer: Belén Dale MD Platelets (Bld) [#/Vol] 280 10*3/uL Normal 138-453 [facility] Comment on above: Performed By: #### B MP, CDP, TROPI #### [facility] [address] [place] [address] Heating Engineer: Belén Dale MD RBC (Bld) [#/Vol] 5.10 10*6/uL Normal 3.95-5.11 [facility] Comment on above: Performed By: #### B MP, CDP, TROPI #### [facility] [address] [place], [place] [address]683 Heating Engineer: Belén Dale MD WBC (Bld) [#/Vol] 7.4 10*3/uL Normal 3.5-11.3 [facility] Comment on above: Performed By: #### B BARON, CDP, TROPI #### [facility] [address] [place], [place] [address]83 Heating Engineer: Belén Dale MD D-Dimer Teston 12-18-2022 D-Dimer Test 0.36 ug/mL FEU Normal 0.00-0.59 [facility] Comment on above: Result Comment: When [...] Performed By: #### CELESTINA Cam, CDP #### [facility] [address] [place] [address] Heating Engineer: Belén Dale MD Physician Referralon 023 Physician Referral [id number]#[id number] Normal [facility] [id number] 12-18-2022 SARS-CoV-2 (COVID-19) RNA CHRISTI+probe Ql (Unsp spec) Not detected Normal NOTDET [facility] Comment on above: Result Comment: Rapid NAAT: [...] management decisions. Fact sheet for Healthcare Providers: https://www.fda.gov/media/187334/download Fact sheet for Patients: https://www.fda.gov/media/925125/download Methodology: Isothermal Nucleic Acid Amplification Performed By: #### ECLESTINA Cam, CDP #### [facility] [address] [place] [address] Heating Engineer: Belén Dale MD Troponinon 12-18-2022 Troponin, High Sens 6 ng/L Normal 0-14 [facility] Comment on above: Result Comment: High Sensitivity Troponin values cannot be compared with other Troponin methodologies. Performed By: #### B MP, CDP, TROPI #### [facility] [address] [place] [address] Heating Engineer: Belén Dale MD Telemedicine 11-14-2022 Telemedicine [id number] Megan Tran 1985 F Date Provider Department Center 11/14/2022 MACRINA FISCHER [facility] [place] [facility] Family History Problem Relation [...] Alive Son Alive Son Alive Level of Service:82754 DC OFFICE/OUTPATIENT ESTABLISHED LOW MDM 20-29 MIN Reason for Visit and Comments: Telehealth Audio/video Visit [871] Normal [facility] CBC W Auto Differential pane l (Bld)on 10-02-2022 Basophils (Bld) [#/Vol] 0.04 10*3/uL Normal <0.11 [facility] Comment on above: Order Comment: Speci men Type: BLOOD SPECIMENOrdering Facility: [facility] Address: [address] [address] Performed By: #### 5 7021-8 ####[facility] LABCLIA [id number] [place] [address] Basophils/100 WBC (Bld) 0.6 % Normal [facility] Comment on above: Order Comment: Speci men Type: BLOOD SPECIMENOrdering Facility: [facility] Address: [address] [id number] Performed By: #### 5 7021-8 ####[facility] LABCLIA [id number] [place] [address] Differential cell count method Nom (Bld) Auto Normal [facility] Comment on above: Order Comment: Speci men Type: BLOOD SPECIMENOrdering Facility: [facility] Address: [address] [place] [address] Performed By: #### 5 7021-8 ####[facility] LABCLIA [id number] [place] [address] Eosinophils (Bld) [#/Vol] 0.21 10*3/uL Normal <0.46 [facility] Comment on above: Order Comment: Speci men Type: BLOOD SPECIMENOrdering Facility: [facility] Address: [address] [place] [address] Performed By: #### 5 7021-8 ####[facility] LABCLIA [id number] [place] [address] Eosinophils/100 WBC (Bld) 3.1 % Normal [facility] Comment on above: Order Comment: Speci men Type: BLOOD SPECIMENOrdering Facility: [facility] Address: [address] [place] [address] Performed By: #### 5 7021-8 ####[facility] LABCLIA [id number] [place] [address] Erythrocyte distribution width (RBC) [Ratio] 11.9 % Normal 11.5-15.0 [facility] Comment on above: Order Comment: Speci men Type: BLOOD SPECIMENOrdering Facility: [facility] Address: [address] [place] [address] Performed By: #### 5 7021-8 ####[facility] LABCLIA [id number] [place] [address] Hematocrit (Bld) [Volume fraction] 42.7 % Normal 36.0-46.0 [facility] Comment on above: Order Comment: Speci men Type: BLOOD SPECIMENOrdering Facility: [facility] Address: [address] [place] [address] Performed By: #### 5 7021-8 ####[facility] LABCLIA [id number] [place] [address] Hemoglobin (Bld) [Mass/Vol] 14.3 g/dL Normal 11.5-15.5 [facility] Comment on above: Order Comment: Speci men Type: BLOOD SPECIMENOrdering Facility: [facility] Address: [address] [place] [address] Performed By: #### 5 7021-8 ####[facility] LABCLIA [id number] [place] [address] Immature granulocytes (Bld) [#/Vol] 0.03 10*3/uL Normal <0.10 [facility] Comment on above: Order Comment: Speci men Type: BLOOD SPECIMENOrdering Facility: [facility] Address: [address] [place] [address] Performed By: #### 5 7021-8 ####[facility] LABCLIA [id number] [place] [address] Immature granulocytes/100 WBC (Bld) 0.4 % Normal [facility] Comment on above: Order Comment: Speci men Type: BLOOD SPECIMENOrdering Facility: [facility] Address: [address] [place] [address] Performed By: #### 5 7021-8 ####[facility] LABCLIA [id number] [place] [address] Lymphocytes (Bld) [#/Vol] 1.60 10*3/uL Normal 1.00-4.00 [facility] Comment on above: Order Comment: Speci men Type: BLOOD SPECIMENOrdering Facility: [facility] Address: [address] [place] [address] Performed By: #### 5 7021-8 ####[facility] LABCLIA [id number] [place] [address] Lymphocytes/100 WBC (Bld) 23.7 % Normal [facility] Comment on above: Order Comment: Speci men Type: BLOOD SPECIMENOrdering Facility: [facility] Address: [address] [address] Performed By: #### 5 7021-8 ####[facility] LABCLIA [id number] [place] [address] MCH (RBC) [Entitic mass] 28.6 pg Normal 26.0-34.0 [facility] Comment on above: Order Comment: Speci men Type: BLOOD SPECIMENOrdering Facility: [facility] Address: [address] [place] [address] Performed By: #### 5 7021-8 ####[facility] LABCLIA [id number] [place] [address] MCHC (RBC) [Mass/Vol] 33.5 g/dL Normal 30.5-36.0 [facility] Comment on above: Order Comment: Speci men Type: BLOOD SPECIMENOrdering Facility: [facility] Address: [address] [address] Performed By: #### 5 7021-8 ####[facility] LABCLIA [id number] [place] [address] MCV (RBC) [Entitic vol] 85.4 fL Normal 80.0-100.0 [facility] Comment on above: Order Comment: Speci men Type: BLOOD SPECIMENOrdering Facility: [facility] Address: [address] [place] [address] Performed By: #### 5 7021-8 ####[facility] LABCLIA [id number] [place] [address] Monocytes (Bld) [#/Vol] 0.31 10*3/uL Normal <0.87 [facility] Comment on above: Order Comment: Speci men Type: BLOOD SPECIMENOrdering Facility: [facility] Address: [address] [place] [address] Performed By: #### 5 7021-8 ####[facility] LABCLIA [id number] [place] [address] Monocytes/100 WBC (Bld) 4.6 % Normal [facility] Comment on above: Order Comment: Speci men Type: BLOOD SPECIMENOrdering Facility: [facility] Address: [address] [place] [address] Performed By: #### 5 7021-8 ####[facility] LABCLIA [id number] [place] [address] Neutrophils (Bld) [#/Vol] 4.57 10*3/uL Normal 1.45-7.50 [facility] Comment on above: Order Comment: Speci men Type: BLOOD SPECIMENOrdering Facility: [facility] Address: [address] [place] [address] Performed By: #### 5 7021-8 ####[facility] LABCLIA [id number] [place] [address] Neutrophils/100 WBC (Bld) 67.6 % Normal [facility] Comment on above: Order Comment: Speci men Type: BLOOD SPECIMENOrdering Facility: [facility] Address: [address] [place] [address] Performed By: #### 5 7021-8 ####[facility] LABCLIA [id number] [place] [address] Nucleated RBC (Bld) [#/Vol] 10*3/uL Normal <0.01 [facility] Comment on above: Order Comment: Speci men Type: BLOOD SPECIMENOrdering Facility: [facility] Address: [address] [place] [address] Performed By: #### 5 7021-8 ####[facility] LABCLIA [id number] [place] [address] Nucleated RBC/100 WBC (Bld) [Ratio] 0.0 /100 WBC Normal [facility] Comment on above: Order Comment: Speci men Type: BLOOD SPECIMENOrdering Facility: [facility] Address: [address] [address] Performed By: #### 5 7021-8 ####[facility] LABCLIA [id number] [place] [address] Platelet mean volume (Bld) [Entitic vol] 9.5 fL Normal 9.0-12.7 [facility] Comment on above: Order Comment: Speci men Type: BLOOD SPECIMENOrdering Facility: [facility] Address: [address] [address] Performed By: #### 5 7021-8 ####[facility] LABCLIA [id number] [place] [address] Platelets (Bld) [#/Vol] 248 10*3/uL Normal 150-400 [facility] Comment on above: Order Comment: Speci men Type: BLOOD SPECIMENOrdering Facility: [facility] Address: [address] [place] [address] Performed By: #### 5 7021-8 ####[facility] LABCLIA [id number] [place] [address] RBC (Bld) [#/Vol] 5.00 10*6/uL Normal 3.90-5.20 [facility] Comment on above: Order Comment: Speci men Type: BLOOD SPECIMENOrdering Facility: [facility] Address: [address] [address] Performed By: #### 5 7021-8 ####[facility] LABCLIA [id number] [place] [address] WBC (Bld) [#/Vol] 6.76 10*3/uL Normal 3.70-11.00 [facility] Comment on above: Order Comment: Speci men Type: BLOOD SPECIMENOrdering Facility: [facility] Address: [address] [place] [address] Performed By: #### 5 7021-8 ####[facility] LABCLIA [id number] [place] [address] CNOVSPon 10-02-2022 CNOVSP Visit (SP) Office (H EMASA) MARCLEANA Tan ([id number]) 1985 F Date Time Provider Department 10/02/22 [...] 2022: Telephone (more content not included)... Normal [facility] Comprehensive metabolic 2000 panelon 10-02-2022 Albumin [Mass/Vol] 4.5 g/dL Normal 3.9-4.9 [facility] Comment on above: Order Comment: Speci men Type: BLOOD SPECIMENOrdering Facility: [facility] Address: [address] [place] [address] Performed By: #### 2 4323-8 ####[facility] LABCLIA [id number] [place] [address] ALP [Catalytic activity/Vol] 80 U/L Normal 34-123 [facility] Comment on above: Order Comment: Speci men Type: BLOOD SPECIMENOrdering Facility: [facility] Address: [address] [place] [address] Performed By: #### 2 4323-8 ####[facility] LABCLIA [id number] [place] [address] ALT [Catalytic activity/Vol] 20 U/L Normal 7-38 [facility] Comment on above: Order Comment: Speci men Type: BLOOD SPECIMENOrdering Facility: [facility] Address: [address] [place] [address] Performed By: #### 2 4323-8 ####[facility] LABIA [id number] [place] [address] Anion gap [Moles/Vol] 14 mmol/L Normal 9-18 [facility] Comment on above: Order Comment: Speci men Type: BLOOD SPECIMENOrdering Facility: [facility] Address: [address] [address] Performed By: #### 2 4323-8 ####[facility] LABCLIA [id number] [place] [address] AST [Catalytic activity/Vol] 13 U/L Normal 13-35 [facility] Comment on above: Order Comment: Speci men Type: BLOOD SPECIMENOrdering Facility: [facility] Address: [address] [address] Performed By: #### 2 4323-8 ####[facility] LABCLIA [id number] [place] [address] Bilirubin [Mass/Vol] 0.4 mg/dL Normal 0.2-1.3 [facility] Comment on above: Order Comment: Speci men Type: BLOOD SPECIMENOrdering Facility: [facility] Address: [address] [place] [address] Performed By: #### 2 4323-8 ####[facility] LABCLIA [id number] [place] [address] Calcium [Mass/Vol] 9.5 mg/dL Normal 8.5-10.2 [facility] Comment on above: Order Comment: Speci men Type: BLOOD SPECIMENOrdering Facility: [facility] Address: [address] [place] [address] Performed By: #### 2 4323-8 ####[facility] LABCLIA [id number] [place] [address] Chloride [Moles/Vol] 106 mmol/L High 97-105 [facility] Comment on above: Order Comment: Speci men Type: BLOOD SPECIMENOrdering Facility: [facility] Address: [address] [place] [address] Performed By: #### 2 4323-8 ####[facility] LABCLIA [id number] [place] [address] CO2 [Moles/Vol] 21 mmol/L Low 22-30 [facility] Comment on above: Order Comment: Speci men Type: BLOOD SPECIMENOrdering Facility: [facility] Address: [address] [address] Performed By: #### 2 4323-8 ####[facility] LABCLIA [id number] [place] [address] Creatinine [Mass/Vol] 1.05 mg/dL High 0.58-0.96 [facility] Comment on above: Order Comment: Speci men Type: BLOOD SPECIMENOrdering Facility: [facility] Address: [address] [address] Performed By: #### 2 4323-8 ####[facility] LABCLIA [id number] [place] [address] Creatinine and Glomerular filtration rate.predicted panel (S/P/Bld) 70 mL/min/1.73m??? Normal >=60 [facility] Comment on above: Order Comment: Speci men Type: BLOOD SPECIMENOrdering Facility: [facility] Address: [address] [place] [address] Result Comment: Maricarmen mated Glomerular Filtration Rate [...] actual GFR. Performed By: #### 2 4323-8 ####[facility] LABCLIA [id number] [place] [address] Glucose [Mass/Vol] 113 mg/dL High 74-99 [facility] Comment on above: Order Comment: Speci men Type: BLOOD SPECIMENOrdering Facility: [facility] Address: [address] [place] [address] Result Comment: The [place] Diabetes [employer] (ADA) provides guidance for cutoff [...] Standards of Medical Care in Diabetes 2016, [place] [employer]. Diabetes Care. 2016.39(Suppl 1). Performed By: #### 2 4323-8 ####[facility] LABCLIA [id number] [place] [address] Potassium [Moles/Vol] 3.7 mmol/L Normal 3.7-5.1 [facility] Comment on above: Order Comment: Speci men Type: BLOOD SPECIMENOrdering Facility: [facility] Address: [address] [place] [address] Performed By: #### 2 4323-8 ####[facility] LABCLIA [id number] [place] [address] Protein [Mass/Vol] 6.8 g/dL Normal 6.3-8.0 [facility] Comment on above: Order Comment: Speci men Type: BLOOD SPECIMENOrdering Facility: [facility] Address: [address] [place] [address] Performed By: #### 2 4323-8 ####[facility] LABCLIA [id number] [place] [address] Sodium [Moles/Vol] 141 mmol/L Normal 136-144 [facility] Comment on above: Order Comment: Speci men Type: BLOOD SPECIMENOrdering Facility: [facility] Address: [address] [address] Performed By: #### 2 4323-8 ####[facility] LABCLIA [id number] [place] [address] Urea nitrogen [Mass/Vol] 15 mg/dL Normal 7-21 [facility] Comment on above: Order Comment: Speci men Type: BLOOD SPECIMENOrdering Facility: [facility] Address: [place] [address] Performed By: #### 2 4323-8 ####[facility] LABCLIA [id number] [place] [address] RAD - Ultrasound Reporton RAD - Ultrasound Report [id number] Normal [facility] Ambulatory Visit Summaryon 0 09-05-2022 Ambulatory Visit Summary LEANA TRAN :1985 Visit Date:09/05/2022 Ambulatory Visit Instructions Your Diagnosis Gross hematuria Kidney stone Angiomyolipoma Urethral stricture Tests Performed Urnls Dip Stick Auto w/o Microscopy POC 83383 Your Care Team Attending Physician - TEJ [...] LORAINE RUBALCAVA PA-C Where: [facility] Jim Normal [facility] Patient Educationon 09-06-19 Patient Education Urology [...] these instructions at home: Medicines ? Take jwzs-ogj-ttipfzw and prescription medicines only as told by [...] provider. Document Revised: 09/26/2021 Document Reviewed: 09/26/2021 [employer] Patient Education ? 2022 [employer] [facility] Reminderson 09-05-2022 Reminders - From: Heather Blevins To: CARLA Rubalcava; Sent: 09/05/2022 09:08:48 EDT Show up: 07/07/2023 09:08:00 EDT Subject: GORDON Due Date/Time: 08/06/2023 09:08:00 EDT Reminder Message patient needs GORDON prior to 1 year appointment, ordered as outside. patient wishes to have it done at [facility] Urology Office/Clinic Noteon 09-05-2022 Urology Office/Clinic Note Chief Complaint 8 month follow up with [facility] HPI Staff 6m GORDON. She states she past a kidney stone, she has a picture in her phone of one she past. DX: Urethral Stricture, Gross Hematuria, Stress Incontinence & Abnormal Urine Sediment *No Urology Medications [facility] 09/02/22 @ Jim Pt was given hat [...] E&M of Est. Patient Moderate 30-39 Min 06148 Influenza immunization status assessed 1030F Most recent [...] E&M of Est. Patient Moderate 30-39 Min 37344 US Renal 3. Gross hematuria (R31.0: Gross hematuria) Neg cytology 12/21/21 Cysto 01/23/22 neg for b.t. UA today neg. no gross heme since last visit. See #3 Ordered: Body Mass Index (BMI) documented 3008F Current tobacco non-user 1036F Depression Screening Negative 3352F E&M of Est. Patient Moderate 30-39 Min 15662 Influenza immunization status assessed 1030F Most recent diastolic blood pressure <80 mm Hg 3078F Systolic BP 130-139 mm Hg (Most Recent) 3075F Urnls Dip Stick Auto w/o Microscopy POC 77617 4. Urethral stricture (N35.919: Unspecified urethral stricture, male, unspecified site) S/p cysto/UD 01/23/[address] Green monitor sxs, possible need for repeat UD in the future no longer having to do emptying maneuvers Ordered: E&M of Est. Patient Moderate 30-39 Min 85278 Orders: tamsulosin, See Instructions, take 1-2 tabs po daily when you feel like you are passing a stone, # 30 tab(s), Refills(s) 1, Pharmacy: [facility]/pharmacy #[id number], 162, cm, 09/05/22 8:28:00 EDT, Height/Length Dosing, 99, kg, 09/05/22 8:28:00 EDT, Weight Dosing Follow-up With When Contact Information TEJ HEREDIA, LORAINE Razo, URL [address] [place] [address] Additional Instructions: 1 yr w/ GORDON Patient Education Kidney Stones, Bogt-pj-Xsdz Documentation recorded by the ricarda Blevins accurately [...] Daily Januv (more content not included)... Normal [facility] Comment on above: Result Comment: Elec tronically Signed By: LORAINE RUBALCAVA PA-C\.br\Date and Time Signed: 09/05/22 09:22 EDT\.br\Electronically Co-Signed By: Heather Blevins\.br\Date and Time Co-Signed: 09/05/22 09:07 EDT Office Visiton 07-21-2022 Follow-up visit [id number] Megan Tran 1985 F Date Provider Department [...] Alive Son Alive Son Alive Level of Service:86395 DC OFFICE/OUTPATIENT ESTABLISHED LOW MDM 20-29 MIN Reason for Visit and Comments: Follow-up [867944] Normal [facility] Office Visiton 07-04-2022 Follow-up visit [id number] Megan Tran 1985 F Date Provider Department Center 07/04/2022 [facility] Problem Relation Age of [...] Alive Son Alive Son Alive Level of Service:14042 DC POSTOP FOLLOW UP VISIT RELATED TO ORIGINAL PX Normal [facility] HPon 06-27-2022 HP History Of Present [...] and collapse ILR placement Stephon Cronin MD [facility] NURSNOTEon 06-27-2022 NURSNOTE RN educated pt on d/ c instructions. RN encouraged pt to voice any questions or concerns. Pt verbalizes no questions or concerns at this time. Pt was wheeled off of unit with all of belongings. Normal [facility] CELIAC ANTIBODIES PROFILEon 06-16-2022 Deamidated Gliadin Abs, IgA 26 units Critically high 0-19 [facility] Comment on above: Result Comment: Nega tive 0 - 19 Weak Positive 20 - 30 Moderate to Strong Positive >30 Performed By: #### C BC #### [facility] [address] [address] [address] Nilton Mccall Deamidated Gliadin Abs, IgG 5 units Normal 0-19 [facility] Comment on above: Result Comment: Nega tive 0 - 19 Weak Positive 20 - 30 Moderate to Strong Positive >30 Performed By: #### C BC #### [facility] [address] [address] [address] Nilton Mccall Endomysial Antibody IgA Negative Normal Negative [facility] Comment on above: Performed By: #### C BC #### [facility] [address] [address] [address] Nilton Mccall Immunoglobulin A, Qn, Serum 205 mg/dL Normal 87-352 [facility] Comment on above: Performed By: #### C BC #### [facility] [address] [address] [address] Nilton Mccall t-Transglutaminase (tTG) IgA <2 Normal 0-3 [facility] Comment on above: Result Comment: Nega tive 0 - 3 Weak Positive 4 - 10 Positive >10 . Tissue Transglutaminase (tTG) has been identified as the endomysial antigen. Studies have demonstr- ated that endomysial IgA antibodies have over 99% specificity for gluten sensitive enteropathy. Performed By: #### C BC #### [facility] [address] [address] [address] Nilton Mccall t-Transglutaminase (tTG) IgG 3 U/mL Normal 0-5 [facility] Comment on above: Result Comment: Nega tive 0 - 5 Weak Positive 6 - 9 Positive >9 Performed By: #### C BC #### [facility] [address] [address] [address] Nilton Mccall CBC AUTO DIFFon 06-15-2022 BASO # 0.0 103/ul Normal 0.0-0.1 [facility] Comment on above: Performed By: #### C BC #### [facility] [address] [address] [address] Nilton Mccall Basophils/100 WBC (Bld) 0.5 % Normal 0.2-2.0 [facility] Comment on above: Performed By: #### C BC #### [facility] [address] [address] [address] Nilton Mccall EO # 0.2 103/ul Normal 0.0-0.7 [facility] Comment on above: Performed By: #### C BC #### [facility] [address] [place] [address] Dr. Nilton Mccall Eosinophils/100 WBC (Bld) 2.8 % Normal 0.9-7.0 [facility] Comment on above: Performed By: #### C BC #### [facility] [address] [address] [address] Nilton Mccall Erythrocyte distribution width (RBC) [Ratio] 11.8 % Normal 11.0-15.0 [facility] Comment on above: Performed By: #### C BC #### [facility] [address] [place] [address] Dr. Nilton Mccall Hematocrit (Bld) [Volume fraction] 41.8 % Normal 36.0-48.0 [facility] Comment on above: Performed By: #### C BC #### [facility] [address] [address] [address] Nilton Mccall Hemoglobin (Bld) [Mass/Vol] 14.2 g/dL Normal 12.0-16.0 [facility] Comment on above: Performed By: #### C BC #### [facility] [address] [place] [address] Dr. Nilton Mccall IG # 0.03 10e3/ul Normal 0.00-0.03 [facility] Comment on above: Performed By: #### C BC #### [facility] [address] [place] [address] Dr. Nilton Mccall IG % 0.4 % Normal 0.0-0.5 [facility] Comment on above: Performed By: #### C BC #### [facility] [address] [place] [address] Dr. Nilton Mccall LYMPH # 2.3 103/ul Normal 1.2-3.8 [facility] Comment on above: Performed By: #### C BC #### [facility] [address] [place] [address] Dr. Nilton Mccall Lymphocytes/100 WBC (Bld) 28.8 % Normal 20.5-60.0 [facility] Comment on above: Performed By: #### C BC #### [facility] [address] [place] [address] Dr. Nilton Mccall MANUAL DIFF REQ NO Normal [facility] Comment on above: Performed By: #### C BC #### [facility] [address] [place] [address] Dr. Nilton Mccall MCH (RBC) [Entitic mass] 29.4 pg Normal 26.7-34.0 [facility] Comment on above: Performed By: #### C BC #### [facility] [address] [place] [address] Dr. Nilton Mccall MCHC (RBC) [Mass/Vol] 34.0 g/dL Normal 29.9-35.2 [facility] Comment on above: Performed By: #### C BC #### [facility] [address] [place] [address] Dr. Nilton Mccall MCV (RBC) [Entitic vol] 86.5 fL Normal 81.0-99.0 [facility] Comment on above: Performed By: #### C BC #### [facility] [address] [place] [address] Dr. Nilton Mccall MONO # 0.4 103/ul Normal 0.3-0.8 [facility] Comment on above: Performed By: #### C BC #### [facility] [address] [place] [address] Dr. Nilton Mccall Monocytes/100 WBC (Bld) 4.5 % Normal 1.7-12.0 [facility] Comment on above: Performed By: #### C BC #### [facility] [address] [place] [address] Dr. Nilton Mccall NEUT # 5.0 103/ul Normal 1.4-6.5 [facility] Comment on above: Performed By: #### C BC #### [facility] [address] [place] [address] Dr. Nilton Mccall Neutrophils/100 WBC (Bld) 63.0 % Normal 43.0-75.0 [facility] Comment on above: Performed By: #### C BC #### [facility] [address] [place] [address] Dr. Nilton Mccall Platelet mean volume (Bld) [Entitic vol] 9.5 fL Normal 9.5-13.5 [facility] Comment on above: Performed By: #### C BC #### [facility] [address] [place] [address] Dr. Nilton Mccall PLT 279 103/ul Normal 150-450 [facility] Comment on above: Performed By: #### C BC #### [facility] [address] [place] [address] Dr. Nilton Mccall RBC 4.83 106/ul Normal 4.20-5.40 [facility] Comment on above: Performed By: #### C BC #### [facility] [address] [place] [address] Dr. Nilton Mccall WBC 7.9 103/ul Normal 4.0-11.0 [facility] Comment on above: Performed By: #### C BC #### [facility] [address] [place] [address] Dr. Nilton Mccall GLYCOHEMOGLOBIN A1Con 2022 ADA RECOMMENDATION SEE BELOW Normal [facility] Comment on above: Result Comment: ADA RECOMMENDED LIMIT 4.0 - 6.0 ADA THERAPEUTIC TARGET < 7.0 ACTION SUGGESTED > 7.0 Performed By: #### C MP #### [facility] [address] [place] [address] Dr. Nilton Mccall Glucose [Mass/Vol] 117 mg/dL Normal [facility] Comment on above: Performed By: #### C MP #### [facility] [address] [place] [address] Dr. Nilton Mccall HbA1c (Bld) [Mass fraction] 5.7 % Normal 4.5-6.2 [facility] Comment on above: Performed By: #### C MP #### [facility] [address] [place] [address] Dr. Nilton Mccall VIT B12 AND FOLATEon 023 Cobalamin (Vitamin B12) [Mass/Vol] 539.0 pg/mL Normal 193.0-986. 0 [facility] Comment on above: Performed By: #### C BC #### [facility] [address] [place] [address] Dr. Nilton Mccall FOLATE 16.40 ng/mL Normal 8.60-58.90 [facility] Comment on above: Performed By: #### C BC #### [facility] [address] [place] [address] Dr. Nilton Mccall VITAMIN D 25 OHon 06-15-2022 VIT D 25-OH 41.2 ng/mL Normal [facility] Comment on above: Performed By: #### C BC #### [facility] [address] [place] [address] Dr. Nilton Mccall VIT D RANGES SEE BELOW Normal [facility] Comment on above: Result Comment: <20 ng/mL Vit D deficient 20 - <30 ng/mL Vit D insufficient 30 - 100 ng/mL Vit D sufficient >100 ng/mL Potential Toxicity Performed By: #### C BC #### [facility] [address] [place] [address] Dr. Nilton Mccall FREE T3on 06-05-2022 FREE T3 2.39 pg/mlL Normal 2.18-3.98 [facility] Comment on above: Performed By: #### T SH, FT3 #### [facility] [address] [address] [address] Nilton Mccall FREE T4on 06-05-2022 Free T4 [Mass/Vol] 0.89 ng/dL Normal 0.76-1.46 [facility] Comment on above: Performed By: #### C MP #### [facility] [address] [address] [address] Nilton Mccall TSHon 06-05-2022 TSH 1.431 uIU/mL Normal 0.358-3.74 0 [facility] Comment on above: Performed By: #### T SH, FT3 #### [facility] [address] [address] [address] Nilton Mccall Consulton 05-24-2022 Consult [id number] Megan Tran 1985 F Date Provider Department Center 05/24/2022 MACRINA FISCHER [facility] CARD [facility] Family History Problem Relation [...] Alive Son Alive Son Alive Level of Service:53552 DC OFFICE/OUTPATIENT [facility] 60-74 MINUTES Reason for Visit and Comments: Dysautonomia [Other] Normal [facility] Letter (Out)on 05-24-2022 Letter (Out) [id number] Megan Tran 1985 Date Provider Department Center 05/24/2022 None-None [facility] Family History Problem [...] Son Alive Son Alive Son Alive Normal [facility] CNPTerri 05-03-2022 CNPN Telephone ([facility]) LEANA TRAN ([id number]) 1985 F Date Time Provider Department 05/03/22 MEENA GRISSOM [facility] During your visit today, we [...] food reac (more content not included)... Normal [facility] Ferritin SerPl-mCncon 2022 Ferritin [Mass/Vol] 95.0 ng/mL Normal 14.7-205.1 [facility] Comment on above: Order Comment: Speci men Type: BLOOD SPECIMENOrdering Facility: [facility] Address: [address] [place], [place] [address] Performed By: #### 2 276-4, 75011-1, 4-6 ####[facility] LABCLIA [id number] [place] [address] [place] Iron and Iron binding capaci ty panelon 04-27-2022 Iron [Mass/Vol] 91 ug/dL Normal 41-186 [facility] Comment on above: Order Comment: Speci men Type: BLOOD SPECIMENOrdering Facility: [facility] Address: [address] [place], [place] [address] Performed By: #### 2 276-4, 21798-1, 6 ####[facility] LABCLIA [id number] [place] [address] [place] Iron binding capacity [Mass/Vol] 310 ug/dL Normal 232-386 [facility] Comment on above: Order Comment: Speci men Type: BLOOD SPECIMENOrdering Facility: [facility] Address: [address] [place], [place] [address] Performed By: #### 2 276-4, 69262-5, 3033-6 ####[facility] LABCLIA [id number] [place] [address] [place] Iron/TIBC [Molar ratio] 29.4 % Normal 15.0-57.0 [facility] Comment on above: Order Comment: Speci men Type: BLOOD SPECIMENOrdering Facility: [facility] Address: [address] [place], [place] [address] Performed By: #### 2 276-4, 27629-5, 3033-6 ####[facility] LABCLIA [id number] [address] [address] [place] Transferrin SerPl-mCncon Transferrin [Mass/Vol] 263 mg/dL Normal 200-360 [facility] Comment on above: Order Comment: Speci men Type: BLOOD SPECIMENOrdering Facility: [facility] Address: [address] [id number] Performed By: #### 2 276-4, 86899-7, 3034-6 ####[facility] LABCLIA [id number] [id number] CNOVSPon 04-03-2022 CNOVSP Visit (SP) Office (H EMASA) LEANA TRAN ([id number]) 1985 F Date Time Provider Department 04/03/22 [...] TSH 0.0 (more content not included)... Normal [facility] CNPNon 04-03-2022 CNPN Telephone (NEUR) LEANA TRAN ([id number]) 1985 F Date Time Provider Department 04/03/22 MEENA GRISSOM [facility] During your visit today, we [...] reaction [T50.9 (more content not included)... Normal [facility] PLATELET TRANSMISSION ELECTR ON MICROSCOPIC STUDYon 03-29-2022 PLATELET TEM Performed Normal [facility] Comment on above: Order Comment: Dulce Maria jules Type: BLOOD SPECIMEN Ordering Facility: [facility] Address: [address] [place] [address] Performed By: #### P LTEMS #### [facility] CLIA [id number] [address] [place] [address] PTEM INTERPRETATION SEE NOTE Normal [facility] Comment on above: Order Comment: Dulce Maria jules Type: BLOOD SPECIMEN Ordering Facility: [facility] Address: [address] [place] [address] Result Comment: IMPR ESSION: Platelet transmission electron [...] developed and its performance characteristics determined by [facility] in a manner consistent with CLIA requirements. This test has not been cleared or approved by the U.S. Food and Drug Administration. Test Performed by: [facility] [address] [place] [address] Heating Engineer: Shree Norwood M.D. Ph.D.; CLIA# [id number] Performed By: #### P LTEMS #### [facility] CLIA [id number] [address] [place] [address] Feroz 03-21-2022 CNPN Telephone (HEMASA) LEANA TRAN ([id number]) 1985 F Date Time Provider Department 03/21/22 YANCY COOK During your visit today, we recorded the following information about you: Yancy Cook RN 03/21/2022 10:45 AM Signed Received call from pt stating she was not able to get her PLT lab test done in [place] d/t them no longer doing them on or fridays so she needs to move out her appt with Dr Salas so she has time to try again to get lab done. Pt transferred to medical front desk specialist to reschedule f/u appt. Yancy Cook RN [...] 06/14/2021 Prim (more content not included)... Normal [facility] Specimen Rejectionon 023 Reason for rejection Unable to perform t esting: Specimen age beyond stability limit. Normal [facility] Comment on above: Performed By: #### M G, BMPX, CDP #### [facility] [address] [place] [address] Heating Engineer: Belén Dale MD Source of sample .BLOOD Normal [facility] Comment on above: Performed By: #### M G, BMPX, CDP #### [facility] [facility] [address] [place] [address] Heating Engineer: Belén Dale MD Test ordered PLTEM Normal [facility] Comment on above: Performed By: #### M G, BMPX, CDP #### [facility] [address] [place] [address] Heating Engineer: Belén Dale MD Ambulatory Visit Summaryon 0 [...] LORAINE RUBALCAVA PA-C Where: [facility] Patient Educationon 02-28-19 23 Patient Education Urology [...] Follow these instructions at home: ? Take xows-pul-dimmbyz and prescription medicines only as told by [...] 02/18/2016 Document Revised: 09/04/2018 Document Reviewed: 09/04/2018 [employer] Patient Education ? 2019 [employer] Normal [facility] Urology Office/Clinic Noteon 02-28-2022 Urology Office/Clinic [...] procedure., # 2 tab(s), Refills(s) 0, Pharmacy: [facility]/pharmacy #[id number], 162, cm, 12/21/21 8:50:00 EST, Height/Length Dosing, 99, kg, 12/21/21 8:50:00 EST, Weight Dosing Total time spent reviewing previous notes/results/external documents, preparing the chart, conducting the encounter with the patient and family, ordering tests/medications, and documenting the encounter was 30 minutes. Follow-up With When Contact Information TEJ HEREDIA, LORAINE Razo, URL [address] [place] [address] Additional Instructions: f/u 6 mos with [facility] Patient Education Urethral Stricture Documentation recorded by the scribdung [place] accurately reflects the services(s) I performed and decisions made by me. Authenticated by Loraine Rubalcava PA-C on 02/28/2022 12:51:43. I, Jaclyn Chino, personally scribed for [employer] on 02/28/2022 09:03:19. . Proble (more content not included)... Normal [facility] Comment on above: Result Comment: Elec tronically Signed By: LORAINE RUBALCAVA PA-C\.br\Date and Time Signed: 02/28/22 12:54 EST\.br\Electronically Co-Signed By: Jaclyn Chino\.br\Date and Time Co-Signed: 02/28/22 09:03 EST CNPNon 02-24-2022 CNPN Telephone (NHMNS2) LEANA TRAN ([id number]) 1985 F Date Time Provider Department 02/24/22 BHARGAVI SALDANA [facility] During your visit today, we recorded the following information about you: Vikash Oreilly RN 02/24/2022 3:16 PM Signed PA submitted via [employer]. Kurt TRAN (Appiah: [id number]) Your information has been submitted to [facility]. To check for an updated outcome later, reopen this PA request from your dashboard. If [facility] has not responded to your request within 24 hours, contact [facility] at . If you think there [...] Reason for Visit: Referral Request [124] Cmt: PONCE for Ajovy Prescriptions as of 02/24/2022 - [...] Arachnoid c (more content not included)... Normal [facility] CNPNon 02-17-2022 CNPN Telephone (HEMASA) LEANA TRAN ([id number]) 1985 F Date Time Provider Department 02/17/22 YANCY COOK During your visit today, we recorded the following information about you: Yancy Cook RN 02/17/2022 4:35 PM Signed Received call from Melodie at [facility] in [place] stating pt had her platelet transmission lab done there but it is a lab test that they send out to other labs and they wanted to know if Dr Salas has a preference on what lab they send it to d/t different labs running the test different ways. ZACH: Please advise. CYNTHIA Liang MD 02/17/2022 5:23 PM Signed [facility] would be good. Yancy Cook RN 02/20/2022 8:45 AM Signed Informed Lindsey of Dr Salas's response. Lindsey states that [facility] will only except if pt was drawn on and pt was drawn on Sunday so they are sending it out today to [place], unless Dr Salas would like pt to come back in for a redraw so it can be sent to [facility]. CYNTHIA Liang MD 02/20/2022 8:50 AM Signed [...] - Fully Assessed Reason for Visit: Orders [621] Question [4557] Prescriptions as of 02/20/2022 - DULoxetine (CYMBALTA) [...] once daily (more content not included)... Normal [facility] ELECTRON MICROSCOPYon 2022 LAB AP CASE REPORT Normal [facility] Comment on above: Result Comment: Elec radha Microscopy Case: [id number] Authorizing Provider: Unknown Unknown Collected: 02/17/2022 0000 Ordering Location: [facility] Lab Received: 02/21/2022 0655 Pathologist: Shree Aldana, PhD Cosigner: Ashley Marshall MD Specimen: Blood, Venous Performed By: #### E LECTRON MICROSCOPY ####[facility] (BEAKER)[address] [place] [address] LAB AP DIAGNOSIS COMMENT No charge has been applied to this sample. [facility] Comment on above: Performed By: #### E LECTRON MICROSCOPY ####[facility] (BEAKER)[address] [place] [address] LAB AP REPORT FINAL DIAGNOSIS NARRATIVE [facility] Comment on above: Result Comment: Samp le was drawn on 02.17.22 and received on 02.21.22. This is too old for assessment. Performed By: #### E LECTRON MICROSCOPY ####[facility] (BEAKER)[address] [place] [address] T4, Freeon 02-17-2022 Thyroxine, Free 1.34 ng/dL 0.93 - 1.70 ng/dL [facility] TSH w/reflex to FT4on 2022 Thyroid Stim. Horm. 0.08 uIU/mL Low 0.30-5.00 [facility] Comment on above: Performed By: #### T SHX #### [facility] [address] [place] [address] Heating Engineer: Belén Dale MD #### FT4 #### [facility] [address] [place], [place] [id number] Heating Engineer: Emanuel Reaves MD TSH with Reflexon 02-17-2022 Interpretation and review of laboratory results Abnormal [facility] TSH Qn 0.08 m[IU]/L Low [facility] Thyroxine, Freeon 02-17-2022 Thyroxine, Free 1.34 ng/dL Normal 0.93-1.70 [facility] Comment on above: Performed By: #### T SHX #### [facility] [address] [place] [address] Heating Engineer: Belén Dale MD #### FT4 #### [facility] [address] [place], [place] [id number] Heating Engineer: Emanuel Reaves MD [facility] 02-16-2022 CNPN Telephone (HEMASA) LEANA TRAN ([id number]) 1985 F Date Time Provider Department 02/16/22 YANCY COOK During your visit today, we recorded the following information about you: Yancy Cook RN 02/16/2022 1:30 PM Signed Received call from pt stating Dr Salas told her to see licensing engineer but their office needs a referral. ZACH: Order pending, please review and sign. CYNTHIA Liang RN 02/17/2022 8:39 AM Signed PSS: Please set pt up with referral to her preferred licensing engineer. Thank you. CYNTHIA Liang 02/17/2022 8:55 AM Signed Pt would like referral sent to Stephon Cronin MD @ [facility]. Lauren, will you please fax records when order is signed? Demo in your box, thanks! Loraine Lewis [facility] 02/17/2022 9:45 AM Signed Records faxed to Dr. Cronin. Janine Hogan Pss 02/23/2022 1:[address] Cronin office spoke with Shanna. She states they have received this referral. Shanna wanted to let us know they do have a [address] Dr Cronin. She states they can get patients in sooner with their TRANSACTION COORDINATOR, when they call patients to schedule they offer appointment with TRANSACTION COORDINATOR first. Patient has been scheduled with Macrina [facility] TRANSACTION COORDINATOR on 04/04 @ 11:00. Janine Hogan Pss [...] [D69.9] Coagulopathy (HCC) [D68.9] Order(s):CONSULT TO CARDIOLOGY [4794] Order #: [id number]: 1 FUTURE Prescriptions as of 02/23/2022 - [...] 5,000 Unit (more content not included)... Normal [facility] CNOVSPon 02-10-2022 CNOVSP Visit (SP) Office (H EMASA) LEANA TRAN ([id number]) 1985 F Date Time Provider Department 02/10/22 [...] comes in (more content not included)... Normal [facility] Feroz 02-01-2022 [facility] Telephone ([facility]) LEANA TRAN ([id number]) 1985 F Date Time Provider Department 02/01/22 [facility] During your visit today, we [...] reaction [T50.905A] (more content not included)... Normal [facility] CBC with Diffon 01-30-2022 Abs. Basophil 0.04 k/uL Normal 0.00-0.20 [facility] Comment on above: Performed By: #### C P, CDP #### [address] [place] [address] Heating Engineer: Belén Dale MD Abs.Imm.Granulocyte 0.04 k/uL Normal 0.00-0.30 [facility] Comment on above: Performed By: #### C P, CDP #### [facility] [address] [place] [address] [place] [address] Heating Engineer: Belén Dale MD Abs.Neutrophil (Seg) 6.83 k/uL Normal 1.50-8.10 [facility] Comment on above: Performed By: #### C P, CDP #### [address] [place] [address] Heating Engineer: Belén Dale MD Basophils/100 WBC (Bld) 0 % Normal 0-2 [facility] Comment on above: Performed By: #### C P, CDP #### [address] [place], [facility]83 Heating Engineer: Belén Dale MD Eosinophils (Bld) [#/Vol] 0.19 10*3/uL Normal 0.00-0.44 [facility] Comment on above: Performed By: #### C P, CDP #### [address] [place], [place] [address] Heating Engineer: Belén Dale MD Eosinophils/100 WBC (Bld) 2 % Normal 1-4 [facility] Comment on above: Performed By: #### C P, CDP #### [address] [place] [address] Heating Engineer: Belén Dale MD Erythrocyte distribution width (RBC) [Ratio] 11.6 % Low 11.8-14.4 [facility] Comment on above: Performed By: #### C P, CDP #### [address] [place], [place] [address] Heating Engineer: Belén Dale MD Hematocrit (Bld) [Volume fraction] 46.1 % Normal 36.3-47.1 [facility] Comment on above: Performed By: #### C P, CDP #### [address] [place], [place] [address] Heating Engineer: Belén Dale MD Hemoglobin (Bld) [Mass/Vol] 15.9 g/dL High 11.9-15.1 [facility] Comment on above: Performed By: #### C P, CDP #### [address] [place], [facility]83 Heating Engineer: Belén Dale MD Immature granulocytes/100 WBC (Bld) 0 % Normal 0 [facility] Comment on above: Performed By: #### C P, CDP #### [address] [place], [facility]83 Heating Engineer: Belén Dale MD Lymphocytes (Bld) [#/Vol] 1.67 10*3/uL Normal 1.10-3.70 [facility] Comment on above: Performed By: #### C P, CDP #### [address] [place], [facility]83 Heating Engineer: Belén Dale MD Lymphocytes/100 WBC (Bld) 18 % Low 24-43 [facility] Comment on above: Performed By: #### C P, CDP #### [address] [place], [facility]83 Heating Engineer: Belén Dale MD MCH (RBC) [Entitic mass] 29.8 pg Normal 25.2-33.5 [facility] Comment on above: Performed By: #### C P, CDP #### [address] [place], [facility]83 Heating Engineer: Belén Dale MD MCHC (RBC) [Mass/Vol] 34.5 g/dL Normal 28.4-34.8 [facility] Comment on above: Performed By: #### C P, CDP #### [address] [place], [facility]83 Heating Engineer: Belén Dale MD MCV (RBC) [Entitic vol] 86.3 fL Normal 82.6-102.9 [facility] Comment on above: Performed By: #### C P, CDP #### [address] [place], [facility]83 Heating Engineer: Belén Dale MD Monocytes (Bld) [#/Vol] 0.37 10*3/uL Normal 0.10-1.20 [facility] Comment on above: Performed By: #### C P, CDP #### [address] [place], [facility]83 Heating Engineer: Belén Dale MD Monocytes/100 WBC (Bld) 4 % Normal 3-12 [facility] Comment on above: Performed By: #### C P, CDP #### [facility] [address] [place], [place] [id number] Heating Engineer: Belén Dale MD Neutrophil (Seg) 76 % High 36-65 [facility] Comment on above: Performed By: #### C P, CDP #### [facility] [address] [place], [place] [address]83 Heating Engineer: Belén Dale MD NRBC Automated 0.0 per 100 WBC Normal 0.0 [facility] Comment on above: Performed By: #### C P, CDP #### [address] [place], [place] [address]483 Heating Engineer: Belén Dale MD Platelet mean volume (Bld) [Entitic vol] 9.4 fL Normal 8.1-13.5 [facility] Comment on above: Performed By: #### C P, CDP #### [address] [place], [place] [address]383 Heating Engineer: Belén Dale MD Platelets (Bld) [#/Vol] 248 10*3/uL Normal 138-453 [facility] Comment on above: Performed By: #### C P, CDP #### [facility] [address] [place] [address] Dr[address] [place], [place] [address]83 Heating Engineer: Belén Dale MD RBC (Bld) [#/Vol] 5.34 10*6/uL High 3.95-5.11 [facility] Comment on above: Performed By: #### C P, CDP #### [address] [place] [address] Heating Engineer: Belén Dale MD WBC (Bld) [#/Vol] 9.1 10*3/uL Normal 3.5-11.3 [facility] Comment on above: Performed By: #### C P, CDP #### [facility] [address] [place] [address] Heating Engineer: Belén Dale MD CT ABDOMEN PELVIS WO [...] Tesfaye Tillman MD 01/30/22 Final result Normal [facility] Comp Metabolic Profon 2021 Albumin [Mass/Vol] 4.7 g/dL Normal 3.5-5.2 [facility] Comment on above: Performed By: #### CELESTINA Cam, CDP #### [facility] [address] [place] [address] [place] [address] Heating Engineer: Beéln Dale MD Albumin/Glob Ratio 1.5 Normal 1.0-2.5 [facility] Comment on above: Performed By: #### CELESTINA Cam, CDP #### [address] [place], [place] [address] Heating Engineer: Belén Dale MD Alkaline Phos 76 U/L Normal 35-104 [facility] Comment on above: Performed By: #### CELESTINA Cam, CDP #### [facility] [address] [place] [address] Dr[address] [place], [place] [address]3 Heating Engineer: Belén Dale MD ALT [Catalytic activity/Vol] 40 U/L High 5-33 [facility] Comment on above: Performed By: #### CELESTINA Cam, CDP #### [facility] [address] [place] [address] Heating Engineer: Belén Dale MD Anion gap [Moles/Vol] 10 mmol/L Normal 9-17 [facility] Comment on above: Performed By: #### M Francisca, BMPX, CDP #### [facility] [address] [place], [place] [address] Heating Engineer: Belén Dale MD AST [Catalytic activity/Vol] 17 U/L Normal <32 [facility] Comment on above: Performed By: #### M G, BMPX, CDP #### [facility] [address] [place], [place] [address] Heating Engineer: Belén Dale MD Bilirubin [Mass/Vol] 0.3 mg/dL Normal 0.3-1.2 [facility] Comment on above: Performed By: #### M Francisca, BMPX, CDP #### [address] [place], [place] [address]83 Heating Engineer: Belén Dale MD BUN/CRE Ratio 10 Normal 9-20 [facility] Comment on above: Performed By: #### M Francisca, BMPX, CDP #### [address] [place], [place] [address] Heating Engineer: Belén Dale MD Calcium [Mass/Vol] 10.4 mg/dL Normal 8.6-10.4 [facility] Comment on above: Performed By: #### M Francisca BMPX, CDP #### [facility] [address] [place], [place] [address] Heating Engineer: Belén Dale MD Chloride [Moles/Vol] 105 mmol/L Normal 98-107 [facility] Comment on above: Performed By: #### M Francisca, BMPX, CDP #### [facility] [address] [place] [address] [place], [place] [address]369783 Heating Engineer: Belén Dale MD CO2 [Moles/Vol] 25 mmol/L Normal 20-31 [facility] Comment on above: Performed By: #### M G, BMPX, CDP #### [facility] [address] [place] [address] Heating Engineer: Belén Dale MD Creatinine [Mass/Vol] 0.89 mg/dL Normal 0.50-0.90 [facility] Comment on above: Performed By: #### M Francisca BMPX, CDP #### [facility] [address] [place] [address] Heating Engineer: Belén Dale MD GFR/1.73 sq M.predicted among non-blacks MDRD (S/P/Bld) [Vol rate/Area] mL/min/{1.73_m2} Normal >60 [facility] Comment on above: Result Comment: Effective [...] renal tubular secretion. Performed By: #### M Francisca BMPX, CDP #### [address] [place] [address] Heating Engineer: Belén Dale MD Glucose [Mass/Vol] 125 mg/dL High 70-99 [facility] Comment on above: Performed By: #### M Francisca BMPX, CDP #### [facility] [address] [place] [address] [place] [address] Heating Engineer: Belén Dale MD Potassium [Moles/Vol] 4.0 mmol/L Normal 3.7-5.3 [facility] Comment on above: Performed By: #### Ian Espinosa BMPX, CDP #### [address] [place] [address] Heating Engineer: Belén Dale MD Protein [Mass/Vol] 7.9 g/dL Normal 6.4-8.3 [facility] Comment on above: Performed By: #### M G, BMPX, CDP #### [facility] [address] [place], [place] [address] Heating Engineer: Belén Dale MD Sodium [Moles/Vol] 140 mmol/L Normal 135-144 [facility] Comment on above: Performed By: #### M G, BMPX, CDP #### [facility] [address] [place], [facility]83 Heating Engineer: Belén Dale MD Urea nitrogen [Mass/Vol] 9 mg/dL Normal 6-20 [facility] Comment on above: Performed By: #### M G, BMPX, CDP #### [facility] [address] [place], [facility]83 Heating Engineer: Belén Dale MD UA w/Reflex Cultureon 2021 Bilirubin, SemiQt,Ur Negative Normal NEG [facility] Comment on above: Performed By: #### M G, BMPX, CDP #### [facility] [address] [place], [facility]83 Heating Engineer: Belén Dale MD Blood, Urine Negative Normal NEG [facility] Comment on above: Performed By: #### M G, BMPX, CDP #### [facility] [address] [place], [facility]83 Heating Engineer: Belén Dale MD Clarity (U) Clear Normal CLEAR [facility] Comment on above: Performed By: #### M G, BMPX, CDP #### [facility] [address] [place], [facility]83 Heating Engineer: Belén Dale MD Color (U) Yellow Normal YEL [facility] Comment on above: Performed By: #### M G, BMPX, CDP #### [facility] [address] [place] [address] Heating Engineer: Belén Dale MD Glucose Ql (U) Negative Normal NEG [facility] Comment on above: Performed By: #### M G, BMPX, CDP #### [facility] [address] [place] [address] [place], [place] 3498383 Heating Engineer: Belén Dale MD Ketones Ql (U) Negative Normal NEG [facility] Comment on above: Performed By: #### M G, BMPX, CDP #### [facility] [address] [place] [address] [place] [address] Heating Engineer: Belén Dale MD Leukocyte esterase Test strip Ql (U) Negative Normal NEG [facility] Comment on above: Performed By: #### M G, BMPX, CDP #### [address] [place] [address] Heating Engineer: Belén Dale MD Nitrite,Ur Negative Normal NEG [facility] Comment on above: Performed By: #### M G, BMPX, CDP #### [facility] [address] [place] [address] Dr[place], [place] 6888683 Heating Engineer: Belén Dale MD PH,Ur 6.0 Normal 5.0-9.0 [facility] Comment on above: Performed By: #### M G, BMPX, CDP #### [facility] [address] [place] [address] [place] [address] Heating Engineer: Belén Dale MD Protein Ql (U) Negative Normal NEG [facility] Comment on above: Performed By: #### M G, BMPX, CDP #### [facility] [address] [place] [address] [place] [address] Heating Engineer: Belén Dale MD Spec. [place],Ur >1.030 High 1.010-1.02 0 [facility] Comment on above: Performed By: #### M G, BMPX, CDP #### [facility] [address] [place] [address] Dr[place], [place] 2355283 Heating Engineer: Belén Dale MD Urobilinogen,Ur Normal Normal NORM [facility] Comment on above: Performed By: #### M Francisca, BMPX, CDP #### [facility] [address] [place], [place] [address]83 Heating Engineer: Belén Dale MD Urinalysis,Microon 2 Epithelial cells LM Ql (Urine sed) 2 TO 5 Normal 0-25 [facility] Comment on above: Performed By: #### M G, BMPX, CDP #### [facility] [address] [place], [place] 489[address]83 Heating Engineer: Belén Dale MD Mucus Strands 2+ Abnormal NONE [facility] Comment on above: Performed By: #### M G, BMPX, CDP #### [facility] [address] [place], [place] 4287283 Heating Engineer: Belén Dale MD Urine RBC's 0 TO 2 Normal 0-2 [facility] Comment on above: Performed By: #### Ian Espinosa BMPX, CDP #### [facility] [address] [place], [place] [address]67883 Heating Engineer: Belén Dale MD Urine WBC's 0 TO 2 Normal 0-5 [facility] Comment on above: Performed By: #### M Francisca, BMPX, CDP #### [facility] [address] [place], [place] [address]83 Heating Engineer: Belén Dale MD Hemoglobin A1Con 01-10-2022 Glucose [Mass/Vol] 117 mg/dL Normal [facility] Comment on above: Result Comment: The ADA and AACC recommend providing the estimated average glucose result to permit better patient understanding of their HBA1c result. Performed By: #### M G, BMPX, CDP #### [facility] [address] [place], [place] 138[address]83 Heating Engineer: Belén Dale MD HbA1c (Bld) [Mass fraction] 5.7 % Normal 4.0-6.0 [facility] Comment on above: Performed By: #### Ian Espinosa BMPX, CDP #### [facility] [address] [place] [address] Heating Engineer: Belén Dale MD CBC with Diffon 01-09-2022 Abs. Basophil <0.03 Normal 0.00-0.20 [facility] Comment on above: Performed By: #### Ian Espinosa, BMPX, CDP #### [facility] [address] [place] [address] Heating Engineer: Belén Dale MD Abs. Eosinophil <0.03 Normal 0.00-0.44 [facility] Comment on above: Performed By: #### Ian Espinosa BMPX, CDP #### [facility] [address] [place] [address] [place] [address] Heating Engineer: Belén Dale MD Abs.Imm.Granulocyte 0.09 k/uL Normal 0.00-0.30 [facility] Comment on above: Performed By: #### YANIRA CamX, CDP #### [address] [place] [address] Heating Engineer: Belén Dale MD Abs.Neutrophil (Seg) 7.77 k/uL Normal 1.50-8.10 [facility] Comment on above: Performed By: #### Ian Espinosa BMPX, CDP #### [facility] [address] [place] [address] [place] [address] Heating Engineer: Belén Dale MD Basophils/100 WBC (Bld) 0 % Normal 0-2 [facility] Comment on above: Performed By: #### Ian Espinosa BMPX, CDP #### [facility] [address] [place] [address] Heating Engineer: Belén Dale MD Eosinophils/100 WBC (Bld) 0 % Low 1-4 [facility] Comment on above: Performed By: #### Ian Espinosa BMPX, CDP #### [facility] [address] [place], [place] [id number] Heating Engineer: Belén Dale MD Erythrocyte distribution width (RBC) [Ratio] 12.0 % Normal 11.8-14.4 [facility] Comment on above: Performed By: #### Ian Espinosa BMPX, CDP #### [facility] [address] [place] [id number] Heating Engineer: Belén Dale MD Hematocrit (Bld) [Volume fraction] 37.9 % Normal 36.3-47.1 [facility] [facility] Comment on above: Performed By: #### Ian Espinosa BMPX, CDP #### [address] [place] [id number] Heating Engineer: Belén Dale MD Hemoglobin (Bld) [Mass/Vol] 12.9 g/dL Normal 11.9-15.1 [facility] Comment on above: Performed By: #### Ian Espinosa BMPX, CDP #### [address] [place], [place] 612[address]83 Heating Engineer: Belén Dale MD Immature granulocytes/100 WBC (Bld) 1 % High 0 [facility] Comment on above: Performed By: #### Ian Espinosa BMPX, CDP #### [address] [place], [facility]83 Heating Engineer: Belén Dale MD Lymphocytes (Bld) [#/Vol] 1.35 10*3/uL Normal 1.10-3.70 [facility] Comment on above: Performed By: #### Ian Espinosa BMPX, CDP #### [address] [place], [place] 649[address]83 Heating Engineer: Belén Dale MD Lymphocytes/100 WBC (Bld) 14 % Low 24-43 [facility] Comment on above: Performed By: #### Ian Espinosa, BMPX, CDP #### [facility] [address] [place], [place] [address] Heating Engineer: Belén Dale MD MCH (RBC) [Entitic mass] 29.7 pg Normal 25.2-33.5 [facility] Comment on above: Performed By: #### Ian Espinosa BMPX, CDP #### [address] [place], [place] [address] Heating Engineer: Belén Dale MD MCHC (RBC) [Mass/Vol] 34.0 g/dL Normal 28.4-34.8 [facility] Comment on above: Performed By: #### Ian Espinosa BMPX, CDP #### [address] [place] [address] Heating Engineer: Belén Dale MD MCV (RBC) [Entitic vol] 87.1 fL Normal 82.6-102.9 [facility] Comment on above: Performed By: #### Ian Espinosa BMPX, CDP #### [address] [place], [place] [address] Heating Engineer: Belén Dale MD Monocytes (Bld) [#/Vol] 0.40 10*3/uL Normal 0.10-1.20 [facility] Comment on above: Performed By: #### Ian Espinosa BMPX, CDP #### [address] [place], [facility]83 Heating Engineer: Belén Dale MD Monocytes/100 WBC (Bld) 4 % Normal 3-12 [facility] Comment on above: Performed By: #### Ian Espinosa BMPX, CDP #### [facility] [address] [place], [place] 5980983 Heating Engineer: Belén Dale MD Neutrophil (Seg) 81 % High 36-65 [facility] Comment on above: Performed By: #### M G, BMPX, CDP #### [facility] [address] [place], [place] 4298583 Heating Engineer: Belén Dale MD NRBC Automated 0.0 per 100 WBC Normal 0.0 [facility] Comment on above: Performed By: #### M Francisca, BMPX, CDP #### [facility] [address] [place], [place] 7605383 Heating Engineer: Belén Dale MD Platelet mean volume (Bld) [Entitic vol] 9.6 fL Normal 8.1-13.5 [facility] Comment on above: Performed By: #### Ian Espinosa, BMPX, CDP #### [facility] [address] [place], [place] 5138683 Heating Engineer: Belén Dale MD Platelets (Bld) [#/Vol] 238 10*3/uL Normal 138-453 [facility] Comment on above: Performed By: #### Ian Espinosa BMPX, CDP #### [address] [place], [place] 5584483 Heating Engineer: Belén Dale MD RBC (Bld) [#/Vol] 4.35 10*6/uL Normal 3.95-5.11 [facility] Comment on above: Performed By: #### Ian Espinosa BMPX, CDP #### [address] [place], [facility]83 Heating Engineer: Belén Dale MD WBC (Bld) [#/Vol] 9.6 10*3/uL Normal 3.5-11.3 [facility] Comment on above: Performed By: #### Ian Espinosa BMPX, CDP #### [facility] [address] [place] [address] Heating Engineer: Belén Dale MD Comp Metabolic Pr/rfx MGon 1 - Albumin [Mass/Vol] 4.2 g/dL Normal 3.5-5.2 [facility] Comment on above: Performed By: #### M G, BMPX, CDP #### [facility] [address] [place], [place] 6170083 Heating Engineer: Belén Dale MD Albumin/Glob Ratio 1.7 Normal 1.0-2.5 [facility] Comment on above: Performed By: #### M G, BMPX, CDP #### [facility] [address] [place], [place] [id number] Heating Engineer: Belén Dale MD Alkaline Phos 70 U/L Normal 35-104 [facility] Comment on above: Performed By: #### M G, BMPX, CDP #### [address] [place], [place] 7254083 Heating Engineer: Belén Dale MD ALT [Catalytic activity/Vol] 24 U/L Normal 5-33 [facility] Comment on above: Performed By: #### M G, BMPX, CDP #### [facility] [address] [place] [address] Dr. [place], [place] [id number] Heating Engineer: Belén Dale MD Anion gap [Moles/Vol] 13 mmol/L Normal 9-17 [facility] Comment on above: Performed By: #### M G, BMPX, CDP #### [address] [place], [place] 3181683 Heating Engineer: Belén Dale MD AST [Catalytic activity/Vol] 15 U/L Normal <32 [facility] Comment on above: Performed By: #### M G, BMPX, CDP #### [facility] [address] [place] [address] [place] [address] Heating Engineer: Belén Dale MD Bilirubin [Mass/Vol] 0.3 mg/dL Normal 0.3-1.2 [facility] Comment on above: Performed By: #### M G, BMPX, CDP #### [facility] [address] [place] [address] Dr. [place], [place] [id number] Heating Engineer: Belén Dale MD BUN/CRE Ratio 16 Normal 9-20 [facility] Comment on above: Performed By: #### M Francisca, BMPX, CDP #### [facility] [address] [place], [place] 2520583 Heating Engineer: Belén Dale MD Calcium [Mass/Vol] 9.0 mg/dL Normal 8.6-10.4 [facility] Comment on above: Performed By: #### Ian Espinosa, BMPX, CDP #### [facility] [address] [place], [place] 5168183 Heating Engineer: Belén Dale MD Chloride [Moles/Vol] 105 mmol/L Normal 98-107 [facility] Comment on above: Performed By: #### Ian Espinosa BMPX, CDP #### [facility] [address] [place], [place] 7962683 Heating Engineer: Belén Dale MD CO2 [Moles/Vol] 21 mmol/L Normal 20-31 [facility] Comment on above: Performed By: #### Ian Espinosa BMPX, CDP #### [facility] [address] [place], [place] 4784383 Heating Engineer: Belén Dale MD Creatinine [Mass/Vol] 0.83 mg/dL Normal 0.50-0.90 [facility] Comment on above: Performed By: #### Ian Espinosa BMPX, CDP #### [facility] [address] [place], [place] 1460683 Heating Engineer: Belén Dale MD GFR/1.73 sq M.predicted among non-blacks MDRD (S/P/Bld) [Vol rate/Area] mL/min/{1.73_m2} Normal >60 [facility] Comment on above: Result Comment: Effective [...] By: #### M Francisca, BMPX, CDP #### [facility] [address] [place] [address] Dr[place], [place] 1381483 Heating Engineer: Belén Dale MD Glucose [Mass/Vol] 183 mg/dL High 70-99 [facility] Comment on above: Performed By: #### M Francisca, BMPX, CDP #### [facility] [address] [place] [address] Dr. [place], [place] 2452083 Heating Engineer: Belén Dale MD Potassium [Moles/Vol] 3.7 mmol/L Normal 3.7-5.3 [facility] Comment on above: Performed By: #### Ian Espinosa BMPX, CDP #### [facility] [address] [place] [address] Dr. [place], [place] 2833383 Heating Engineer: Belén Dale MD Protein [Mass/Vol] 6.7 g/dL Normal 6.4-8.3 [facility] Comment on above: Performed By: #### M Francisca BMPX, CDP #### [facility] [address] [place] [address] Dr. [place], [place] 0890183 Heating Engineer: Belén Dale MD Sodium [Moles/Vol] 139 mmol/L Normal 135-144 [facility] Comment on above: Performed By: #### M Francisca, BMPX, CDP #### [facility] [address] [place] [address] Dr. [place], [place] 4388383 Heating Engineer: Belén Dale MD Urea nitrogen [Mass/Vol] 13 mg/dL Normal 6-20 [facility] Comment on above: Performed By: #### M G, BMPX, CDP #### [facility] [address] [place] [address] Dr. [place], [place] 7150983 Heating Engineer: Belén Dale MD Resp Viral Panelon 2 Adenovirus Detected Abnormal [facility] Comment on above: Performed By: #### M G, BMPX, CDP #### [facility] [address] [place] [address] [place] [address] Heating Engineer: MD Loly Chanddet.parapertussis Not detected Normal [facility] Comment on above: Performed By: #### M G, BMPX, CDP #### [facility] [address] [place] [address] [place] [address] Heating Engineer: Belén Dale MD Bordetella pertussis Not detected Normal [facility] Comment on above: Performed By: #### M G, BMPX, CDP #### [address] [place] [address] Heating Engineer: Belén Dale MD Chlamyd.pneumoniae Not detected Normal [facility] Comment on above: Performed By: #### M G, BMPX, CDP #### [address] [place] [address] Heating Engineer: Belén Dale MD Coronavirus 229E Not detected Normal [facility] Comment on above: Performed By: #### M G, BMPX, CDP #### [address] [place] [address] Heating Engineer: Belén Dale MD Coronavirus HKU1 Not detected Normal [facility] Comment on above: Performed By: #### M G, BMPX, CDP #### [address] [place] [address] Heating Engineer: Belén Dale MD Coronavirus NL63 Not detected Normal [facility] Comment on above: Performed By: #### M G, BMPX, CDP #### [facility] [address] [place] [address] [place] [address] Heating Engineer: Belén Dale MD Coronavirus OC43 Not detected [facility] Comment on above: Performed By: #### M G, BMPX, CDP #### [facility] [address] [place] [address] Heating Engineer: Belén Dale MD Human Metapneumo Not detected [facility] Comment on above: Performed By: #### M G, BMPX, CDP #### [facility] [address] [place] [address] Heating Engineer: Belén Dale MD Influenza A Not detected [facility] Comment on above: Performed By: #### M G, BMPX, CDP #### [facility] [address] [place] [address] [place], [place] [id number] Heating Engineer: Belén Dale MD Influenza B Not detected [facility] Comment on above: Performed By: #### M G, BMPX, CDP #### [facility] [address] [place] [address] [place] [address] Heating Engineer: Belén Dale MD Mycoplas.pneumoniae Not detected [facility] Comment on above: Result Comment: Perf ormed by multiplexed nucleic acid assay. Performed By: #### M G, BMPX, CDP #### [facility] [address] [place] [address] [place] [address] Heating Engineer: Belén Dlae MD Parainfluenza 1 Not detected [facility] Comment on above: Performed By: #### M G, BMPX, CDP #### [facility] [address] [place], [place] 0405483 Heating Engineer: Belén Dale MD Parainfluenza 2 Not detected [facility] Comment on above: Performed By: #### M G, BMPX, CDP #### [facility] [address] [place] [address] Heating Engineer: Belén Dale MD Parainfluenza 3 Not detected Normal [facility] Comment on above: Performed By: #### M G, BMPX, CDP #### [facility] [address] [place] [address] Heating Engineer: Belén Dale MD Parainfluenza 4 Not detected Normal [facility] Comment on above: Performed By: #### M G, BMPX, CDP #### [address] [place] [address] Heating Engineer: Belén Dale MD Resp Syncytial Virus Detected Abnormal [facility] Comment on above: Performed By: #### M G, BMPX, CDP #### [address] [place] [address] Heating Engineer: Belén Dale MD Rhino/Enterovirus Not detected Normal [facility] Comment on above: Performed By: #### M G, BMPX, CDP #### [address] [place] [address] Heating Engineer: Belén Dale MD SARS-CoV-2 (COVID-19) RNA CHRISTI+probe Ql (Unsp spec) Not detected Normal [facility] Comment on above: Performed By: #### M G, BMPX, CDP #### [facility] [address] [place], [place] 6739183 Heating Engineer: Belén Dale MD Basic Metabolic Profon 01-08 Anion gap [Moles/Vol] 16 mmol/L Normal 10-22 [facility] Comment on above: Performed By: #### M G, BMPX, CDP #### [facility] [address] [place], [place] 9948583 Heating Engineer: Belén Dale MD BUN/CRE Ratio 12 Normal 9-20 [facility] Comment on above: Performed By: #### Ian Espinosa BMPX, CDP #### [facility] [address] [place] 7329283 Heating Engineer: Belén Dale MD Calcium [Mass/Vol] 9.5 mg/dL Normal 8.6-10.4 [facility] Comment on above: Performed By: #### Ian Espinosa BMPX, CDP #### [facility] [address] [place], [place] 4933483 Heating Engineer: Belén Dale MD Chloride [Moles/Vol] 104 mmol/L Normal 98-107 [facility] Comment on above: Performed By: #### Ian Espinosa BMPX, CDP #### [facility] [address] [place], [place] 5358883 Heating Engineer: Belén Dale MD CO2 [Moles/Vol] 20 mmol/L Normal 20-31 [facility] Comment on above: Performed By: #### CELESTINA Cam, CDP #### [facility] [address] [place], [place] 0071783 Heating Engineer: Belén Dale MD Creatinine [Mass/Vol] 0.92 mg/dL High 0.50-0.90 [facility] Comment on above: Performed By: #### Ian Espinosa BMPX, CDP #### [facility] [address] [place] [address] Heating Engineer: Belén Dale MD GFR/1.73 sq M.predicted among non-blacks MDRD (S/P/Bld) [Vol rate/Area] mL/min/{1.73_m2} Normal >60 [facility] Comment on above: Result Comment: Effective [...] Performed By: #### CELESTINA Cam, CDP #### [facility] [address] [place] [address] Heating Engineer: Belén Dale MD Glucose [Mass/Vol] 187 mg/dL High 70-99 [facility] Comment on above: Performed By: #### CELESTINA Cam, CDP #### [facility] [address] [place] [address] Heating Engineer: Belén Dale MD Potassium [Moles/Vol] 3.9 mmol/L Normal 3.7-5.3 [facility] Comment on above: Performed By: #### CELESTINA Cam, CDP #### [facility] [address] [place] [address] Heating Engineer: Belén Dale MD Sodium [Moles/Vol] 140 mmol/L Normal 135-144 [facility] Comment on above: Performed By: #### CELESTINA Cam, CDP #### [facility] [address] [place] [address] Heating Engineer: Belén Dale MD Urea nitrogen [Mass/Vol] 11 mg/dL Normal 6-20 [facility] Comment on above: Performed By: #### Ian Espinosa BMPX, CDP #### [facility] [address] [place] [address] Heating Engineer: Belén Dale MD Brain Natri. Peptideon 01-08 Natriuretic peptide B (Bld) [Mass/Vol] 485 pg/mL High <300 [facility] Comment on above: Result Comment: An age-independent cutoff point of 300 pg/ml has a 98% negative predictive value excluding acute heart failure. Performed By: #### CELESTINA Cam, CDP #### [facility] [address] [place] [address] Heating Engineer: Belén Dale MD CBC with Diffon 01-08-2022 Abs. Basophil <0.03 Normal 0.00-0.20 [facility] Comment on above: Performed By: #### M G, BMPX, CDP #### [facility] [address] [place], [place] [address] Heating Engineer: Beéln Dale MD Abs. Eosinophil <0.03 Normal 0.00-0.44 [facility] Comment on above: Performed By: #### M G, BMPX, CDP #### [address] [place], [place] [address] Heating Engineer: Belén Dale MD Abs.Imm.Granulocyte 0.06 k/uL Normal 0.00-0.30 [facility] Comment on above: Performed By: #### M G, BMPX, CDP #### [facility] [address] [place], [place] [address] Heating Engineer: Belén Dale MD Abs.Neutrophil (Seg) 9.46 k/uL High 1.50-8.10 [facility] Comment on above: Performed By: #### M G, BMPX, CDP #### [address] [place], [place] [address] Heating Engineer: Belén Dale MD Basophils/100 WBC (Bld) 0 % Normal 0-2 [facility] Comment on above: Performed By: #### M G, BMPX, CDP #### [facility] [address] [place], [facility]83 Heating Engineer: Belén Dale MD Eosinophils/100 WBC (Bld) 0 % Low 1-4 [facility] Comment on above: Performed By: #### M G, BMPX, CDP #### [facility] [address] [place] [id number] Heating Engineer: Belén Dale MD Erythrocyte distribution width (RBC) [Ratio] 11.9 % Normal 11.8-14.4 [facility] Comment on above: Performed By: #### Ian Espinosa BMPX, CDP #### [facility] [address] [place], [place] 6297983 Heating Engineer: Belén Dale MD Hematocrit (Bld) [Volume fraction] 43.8 % Normal 36.3-47.1 [facility] Comment on above: Performed By: #### Ian Espinosa, BMPX, CDP #### [facility] [address] [place] [address]683 Heating Engineer: Belén Dale MD Hemoglobin (Bld) [Mass/Vol] 14.6 g/dL Normal 11.9-15.1 [facility] Comment on above: Performed By: #### Ian Espinosa BMPX, CDP #### [facility] [address] [place], [facility]83 Heating Engineer: Belén Dale MD Immature granulocytes/100 WBC (Bld) 1 % High 0 [facility] Comment on above: Performed By: #### Ian Espinosa BMPX, CDP #### [address] [place], [facility]83 Heating Engineer: Belén Dale MD Lymphocytes (Bld) [#/Vol] 0.78 10*3/uL Low 1.10-3.70 [facility] Comment on above: Performed By: #### Ian Espinosa BMPX, CDP #### [facility] [address] [place], [place] 9183183 Heating Engineer: Belén Dale MD Lymphocytes/100 WBC (Bld) 7 % Low 24-43 [facility] Comment on above: Performed By: #### Ian Espinosa, BMPX, CDP #### [facility] [address] [place], [facility]83 Heating Engineer: Belén Dale MD MCH (RBC) [Entitic mass] 29.6 pg Normal 25.2-33.5 [facility] Comment on above: Performed By: #### Ian Espinosa BMPX, CDP #### [facility] [address] [place], [place] 1590683 Heating Engineer: Belén Dale MD MCHC (RBC) [Mass/Vol] 33.3 g/dL Normal 28.4-34.8 [facility] Comment on above: Performed By: #### Ian Espinosa, BMPX, CDP #### [facility] [address] [place], [place] 6037083 Heating Engineer: Belén Dale MD MCV (RBC) [Entitic vol] 88.7 fL Normal 82.6-102.9 [facility] Comment on above: Performed By: #### CELESTINA Cam, CDP #### [address] [place], [place] 6594783 Heating Engineer: Belén Dale MD Monocytes (Bld) [#/Vol] 0.19 10*3/uL Normal 0.10-1.20 [facility] Comment on above: Performed By: #### Ian Espinosa BMPX, CDP #### [address] [place] [address] Heating Engineer: Belén Dale MD Monocytes/100 WBC (Bld) 2 % Low 3-12 [facility] Comment on above: Performed By: #### Ian Espinosa BMPX, CDP #### [facility] [address] [place] [address] [place] [address] Heating Engineer: Belén Dale MD Neutrophil (Seg) 90 % High 36-65 [facility] Comment on above: Performed By: #### Ian Espinosa, BMPX, CDP #### [facility] [address] [place], [place] 4000883 Heating Engineer: Belén Dale MD NRBC Automated 0.0 per 100 WBC Normal 0.0 [facility] Comment on above: Performed By: #### Ian Espinosa BMPX, CDP #### [address] [place], [facility]83 Heating Engineer: Belén Dale MD Platelet mean volume (Bld) [Entitic vol] 9.6 fL Normal 8.1-13.5 [facility] Comment on above: Performed By: #### Ian Espinosa BMPX, CDP #### [address] [place], [place] 2854283 Heating Engineer: Belén Dale MD Platelets (Bld) [#/Vol] 254 10*3/uL Normal 138-453 [facility] Comment on above: Performed By: #### Ian Espinosa BMPX, CDP #### [address] [place], [facility]83 Heating Engineer: Belén Dale MD RBC (Bld) [#/Vol] 4.94 10*6/uL Normal 3.95-5.11 [facility] Comment on above: Performed By: #### Ian Espinosa BMPX, CDP #### [address] [place], [facility]83 Heating Engineer: Belén Dale MD WBC (Bld) [#/Vol] 10.5 10*3/uL Normal 3.5-11.3 [facility] Comment on above: Performed By: #### Ian Espinosa BMPX, CDP #### [address] [place], [facility]83 Heating Engineer: Belén Dale MD CT SOFT TISSUE NECK [...] MD 01/08/22 Final result Normal [facility] D-Dimer Teston 01-08-2022 D-Dimer Test 0.46 mg/L FEU Normal 0.00-0.59 [facility] Comment on above: Result Comment: When combined [...] Performed By: #### CELESTINA Cam, CDP #### [facility] [address] [place] [address] Heating Engineer: Belén Dale MD Resp Viral Panelon Source: .NASOPHARYNGEAL SWAB Normal [facility] Comment on above: Performed By: #### CELESTINA Cam, CDP #### [facility] [address] [place] [address] Heating Engineer: Belén Dale MD TSH w/reflex to FT4on 2021 Thyroid Stim. Horm. 0.07 uIU/mL Low 0.30-5.00 [facility] Comment on above: Performed By: #### CELESTINA Cam, CDP #### [facility] [address] [place] [address] [place] [address] Heating Engineer: Belén Dale MD Thyroxine, Freeon 01-08-2022 Thyroxine, Free 1.35 ng/dL Normal 0.93-1.70 [facility] Comment on above: Performed By: #### CELESTINA Cam, CDP #### [facility] [address] [place] [address] Heating Engineer: Belén Dale MD Troponinon 01-08-2022 Troponin, High Sens <6 Normal 0-14 [facility] Comment on above: Result Comment: High Sensitivity Troponin values cannot be compared with other Troponin methodologies. Patients with high levels of Biotin oral intake (i.e >5mg/day) may have falsely decreased Troponin levels. Samples collected within 8 hours of biotin intake may require additional information for diagnosis. Performed By: #### Ian Espinosa BMPX, CDP #### [address] [place], [place] 8673883 Heating Engineer: Belén Dale MD Venous Blood Gaseson 022 Body Temp. 37.0 Normal [facility] Comment on above: Performed By: #### M Francisca BMPX, CDP #### [address] [place], [place] 1864583 Heating Engineer: Belén Dale MD HCO3 (Bld) [Moles/Vol] 15.8 mmol/L Low 24.0-30.0 [facility] Comment on above: Performed By: #### Ian Espinosa BMPX, CDP #### [address] [place], [place] 2276183 Heating Engineer: Belén Dale MD Negative Base Excess 5.2 mmol/L High 0.0-2.0 [facility] Comment on above: Performed By: #### Ian Espinosa BMPX, CDP #### [address] [place], [place] 5649183 Heating Engineer: Belén Dale MD O2 Device/Flow/% ROOM AIR Normal [facility] Comment on above: Performed By: #### Ian Espinosa BMPX, CDP #### [address] [place], [place] 3486283 Heating Engineer: Belén Dale MD Oxygen saturation in Blood 94.9 % High 60.0-85.0 [facility] Comment on above: Performed By: #### Ian Espinosa BMPX, CDP #### [address] [place] [address] Heating Engineer: Belén Dale MD pCO2 21.7 mm Hg Low 39-55 [facility] Comment on above: Performed By: #### Ian Espinosa BMPX, CDP #### [address] [place], [place] 5665383 Heating Engineer: Belén Dale MD pH (Bld) 7.481 [pH] High 7.32-7.42 [facility] Comment on above: Performed By: #### M G, BMPX, CDP #### [facility] [address] [place] [address] Heating Engineer: Belén Dale MD pO2 66.6 mm Hg High 30.0-50.0 [facility] Comment on above: Performed By: #### M G, BMPX, CDP #### [facility] [address] [place] [address] Heating Engineer: Belén Dale MD Pt. Position GRECIA Normal [facility] Comment on above: Performed By: #### M G, BMPX, CDP #### [facility] [address] [place] [address] Heating Engineer: Belén Dale MD Respiratory rate 31 /min Normal [facility] Comment on above: Performed By: #### M G, BMPX, CDP #### [facility] [address] [place] [address] [place] [address] Heating Engineer: Belén Dale MD XR CHEST PORTABLEon 01-09-20 [...] Antelmo Ramírez MD 01/08/22 Final result Normal [facility] Basic Metab w/rfx MGon 01-07 Potassium [Moles/Vol] 3.1 mmol/L Low 3.7-5.3 [facility] Comment on above: Performed By: #### M G, BMPX, CDP #### [facility] [address] [place], [place] [id number] Heating Engineer: Belén Dale MD Anion gap [Moles/Vol] 14 mmol/L Normal 9-17 [facility] Comment on above: Performed By: #### M G, BMPX, CDP #### [facility] [address] [place], [place] [id number] Heating Engineer: Belén Dale MD BUN/CRE Ratio 9 Normal 9-20 [facility] Comment on above: Performed By: #### M G, BMPX, CDP #### [facility] [address] [place], [place] [id number] Heating Engineer: Belén Dale MD Calcium [Mass/Vol] 9.2 mg/dL Normal 8.6-10.4 [facility] Comment on above: Performed By: #### M G, BMPX, CDP #### [facility] [address] [place], [place] [id number] Heating Engineer: Belén Dale MD Chloride [Moles/Vol] 103 mmol/L Normal 98-107 [facility] Comment on above: Performed By: #### M G, BMPX, CDP #### [address] [place], [place] [id number] Heating Engineer: Belén Dale MD CO2 [Moles/Vol] 20 mmol/L Normal 20-31 [facility] Comment on above: Performed By: #### M G, BMPX, CDP #### [facility] [address] [place], [place] [id number] Heating Engineer: Belén Dale MD Creatinine [Mass/Vol] 0.95 mg/dL High 0.50-0.90 [facility] Comment on above: Performed By: #### M G, BMPX, CDP #### [facility] [address] [place] [address] Heating Engineer: Belén Dale MD GFR/1.73 sq M.predicted among non-blacks MDRD (S/P/Bld) [Vol rate/Area] mL/min/{1.73_m2} Normal >60 [facility] Comment on above: Result Comment: Effective [...] affects renal tubular secretion. Performed By: #### YANIRA CamX, CDP #### [address] [place] [address] Heating Engineer: Belén Dale MD Glucose [Mass/Vol] 180 mg/dL High 70-99 [facility] Comment on above: Performed By: #### Ian Espinosa BMPX, CDP #### [facility] [address] [place] [address] [place] [address] Heating Engineer: Belén Dale MD Sodium [Moles/Vol] 137 mmol/L Normal 135-144 [facility] Comment on above: Performed By: #### Ian Espinosa BMPX, CDP #### [address] [place] [address] Heating Engineer: Belén Dale MD Urea nitrogen [Mass/Vol] 9 mg/dL Normal 6-20 [facility] Comment on above: Performed By: #### M Francisca BMPX, CDP #### [facility] [address] [place] [address] [place] [address] Heating Engineer: Belén Dale MD CBC with Diffon 01-07-2022 Abs. Basophil <0.03 Normal 0.00-0.20 [facility] Comment on above: Performed By: #### Ian G, BMPX, CDP #### [address] [place], [place] 100[address]83 Heating Engineer: Belén Dale MD Abs.Imm.Granulocyte <0.03 Normal 0.00-0.30 [facility] Comment on above: Performed By: #### M G, BMPX, CDP #### [address] [place] [id number] Heating Engineer: Belén Dale MD Abs.Neutrophil (Seg) 3.22 k/uL Normal 1.50-8.10 [facility] Comment on above: Performed By: #### M G, BMPX, CDP #### [address] [place] [address] Heating Engineer: Belén Dale MD Basophils/100 WBC (Bld) 0 % Normal 0-2 [facility] Comment on above: Performed By: #### Ian Espinosa, BMPX, CDP #### [address] [place] [address] Heating Engineer: Belén Dale MD Eosinophils (Bld) [#/Vol] 0.12 10*3/uL Normal 0.00-0.44 [facility] Comment on above: Performed By: #### M G, BMPX, CDP #### [address] [place] [address] Heating Engineer: Belén Dale MD Eosinophils/100 WBC (Bld) 3 % Normal 1-4 [facility] Comment on above: Performed By: #### M G, BMPX, CDP #### [address] [place], [facility] Heating Engineer: Belén Dale MD Erythrocyte distribution width (RBC) [Ratio] 11.7 % Low 11.8-14.4 [facility] Comment on above: Performed By: #### M G, BMPX, CDP #### [address] [place] [id number] Heating Engineer: Belén Dale MD Hematocrit (Bld) [Volume fraction] 41.1 % Normal 36.3-47.1 [facility] Comment on above: Performed By: #### M Francisca, BMPX, CDP #### [address] [place], [place] [id number] Heating Engineer: Belén Dale MD Hemoglobin (Bld) [Mass/Vol] 14.1 g/dL Normal 11.9-15.1 [facility] Comment on above: Performed By: #### M Francisca, BMPX, CDP #### [address] [place] [address] Heating Engineer: Belén Dale MD Immature granulocytes/100 WBC (Bld) 0 % Normal 0 [facility] Comment on above: Performed By: #### Ian Espinosa BMPX, CDP #### [address] [place], [place] [address] Heating Engineer: Belén Dale MD Lymphocytes (Bld) [#/Vol] 1.14 10*3/uL Normal 1.10-3.70 [facility] Comment on above: Performed By: #### Ian Espinosa, BMPX, CDP #### [address] [place], [place] [address] Heating Engineer: Belén Dale MD Lymphocytes/100 WBC (Bld) 23 % Low 24-43 [facility] Comment on above: Performed By: #### M G, BMPX, CDP #### [address] [place], [facility]83 Heating Engineer: Belén Dale MD MCH (RBC) [Entitic mass] 29.8 pg Normal 25.2-33.5 [facility] Comment on above: Performed By: #### M G, BMPX, CDP #### [address] [place], [facility]83 Heating Engineer: Belén Dale MD MCHC (RBC) [Mass/Vol] 34.3 g/dL Normal 28.4-34.8 [facility] Comment on above: Performed By: #### CELESTINA Cam, CDP #### [facility] [address] [place], [place] [id number] Heating Engineer: Belén Dale MD MCV (RBC) [Entitic vol] 86.9 fL Normal 82.6-102.9 [facility] Comment on above: Performed By: #### YANIRA CamX, CDP #### [facility] [address] [place], [place] 948[address]83 Heating Engineer: Belén Dale MD Monocytes (Bld) [#/Vol] 0.36 10*3/uL Normal 0.10-1.20 [facility] Comment on above: Performed By: #### CELESTINA Cam, CDP #### [address] [place], [place] [id number] Heating Engineer: Belén Dale MD Monocytes/100 WBC (Bld) 7 % Normal 3-12 [facility] Comment on above: Performed By: #### CELESTINA Cam, CDP #### [address] [place], [place] 025[address]83 Heating Engineer: Belén Dale MD Neutrophil (Seg) 67 % High 36-65 [facility] Comment on above: Performed By: #### CELESTINA Cam, CDP #### [facility] [address] [place], [place] [id number] Heating Engineer: Belén Dale MD NRBC Automated 0.0 per 100 WBC Normal 0.0 [facility] Comment on above: Performed By: #### Ian Espinosa BMPX, CDP #### [facility] [address] [place], [place] [id number] Heating Engineer: Belén Dale MD Platelet mean volume (Bld) [Entitic vol] 9.5 fL Normal 8.1-13.5 [facility] Comment on above: Performed By: #### Ian Espinosa BMPX, CDP #### [facility] [address] [place], [place] [phone] Heating Engineer: Belén Dale MD Platelets (Bld) [#/Vol] 180 10*3/uL Normal 138-453 [facility] Comment on above: Performed By: #### Ian Espinosa BMPX, CDP #### [facility] [address] [place], [place] [id number] Heating Engineer: Belén Dale MD RBC (Bld) [#/Vol] 4.73 10*6/uL Normal 3.95-5.11 [facility] Comment on above: Performed By: #### Ian Espinosa BMPX, CDP #### [address] [place], [place] [address]83 Heating Engineer: Belén Dale MD WBC (Bld) [#/Vol] 4.9 10*3/uL Normal 3.5-11.3 [facility] Comment on above: Performed By: #### YANIRA CamX, CDP #### [address] [place], [place] 7453783 Heating Engineer: Belén Dale MD Flu A/B Ag Detectionon 01-07 Flu A Ag Detection Negative Normal NEG [facility] Comment on above: Result Comment: for Influenza A Antigen Performed By: #### Ian Espinosa BMPX, CDP #### [facility] [address] [place] [address] Dr[address] [place], [place] [id number] Heating Engineer: Belén Dale MD Flu B Ag Detection Negative Normal NEG [facility] Comment on above: Result Comment: for Influenza B Antigen. Performed By: #### Ian Espinosa BMPX, CDP #### [address] [place], [place] [id number] Heating Engineer: Belén Dale MD Magnesiumon 01-07-2022 Magnesium [Mass/Vol] 1.8 mg/dL Normal 1.6-2.6 [facility] Comment on above: Performed By: #### CELESTINA Cam, CDP #### [facility] [address] [place] [address] Heating Engineer: Belén Dale MD [id number] 01-07-2022 SARS-CoV-2 (COVID-19) RNA CHRISTI+probe Ql (Unsp spec) Not detected Normal NOTDET [facility] Comment on above: Result Comment: Rapid NAAT: [...] management decisions. Fact sheet for Healthcare Providers: https://www.fda.gov/media/261370/download Fact sheet for Patients: https://www.fda.gov/media/813095/download Methodology: Isothermal Nucleic Acid Amplification Performed By: #### C OVRB #### [facility] [address] [place] [address] Heating Engineer: Belén Dale MD XR CHEST PORTABLEon 01-08-20 [...] Vania Rodríguez MD 01/07/22 Final result Normal [facility] XR NECK SOFT TISSUEon 2021 XR NECK [...] Susy Martin MD 01/07/22 Final result Normal [facility] US KIDNEYSon 12-26-2021 US KIDNEYS EXAMINATION: US KIDN EYDominick HISTORY: [place] hematuria COMPARISON: 10/20/2020, 11/14/2021 TECHNIQUE: [...] by: BELÉN ANDRADE Date: 2021-12-26 07:22 Normal [facility] CNPTerri 12-20-2021 MACYN Telephone (ROMAINEPATRICK) MARCLEANA Tan ([id number]) 1985 F Date Time Provider Department 12/20/21 JUAN RAMON DODD During your visit today, we recorded the following information about you: CARINE Carrillo 12/20/2021 10:40 AM Signed Results left on patient voicemail. Leana Tran's bleeding disorders panel through [facility] was non-diagnostic or negative for a pathogenic variant. 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 This is a common polymorphism in the general population present in ~10% of individuals of white ancestry and ~1/3 of those of South ancestry. This polymorphism is not expected to contribute to disease risk for the patient. Please see [employer] message for further discussion. CARINE Carrillo Licensed, Certified Genetic Counselor [facility] CC: Dr. Fuentes Craig Allergies As of [...] of pituit (more content not included)... Normal [facility] CBC AUTO DIFFon 12-12-2021 BASO # 0.0 103/ul Normal 0.0-0.1 [facility] Comment on above: Performed By: #### C MP #### [facility] [address] [place] [address] Dr. Nilton Mccall Basophils/100 WBC (Bld) 0.5 % Normal 0.2-2.0 [facility] Comment on above: Performed By: #### C MP #### [facility] [address] [place] [address] Dr. Nilton Mccall EO # 0.2 103/ul Normal 0.0-0.7 [facility] Comment on above: Performed By: #### C MP #### [facility] [address] [place] [address] Dr. Nilton Mccall Eosinophils/100 WBC (Bld) 3.2 % Normal 0.9-7.0 [facility] Comment on above: Performed By: #### C MP #### [facility] [address] [place] [address] Dr. Nilton Mccall Erythrocyte distribution width (RBC) [Ratio] 11.9 % Normal 11.0-15.0 [facility] Comment on above: Performed By: #### C MP #### [facility] [address] [place] [address] Dr. Nilton Mccall Hematocrit (Bld) [Volume fraction] 42.8 % Normal 36.0-48.0 [facility] Comment on above: Performed By: #### C MP #### [facility] [address] [place] [address] Dr. Nilton Mccall Hemoglobin (Bld) [Mass/Vol] 14.4 g/dL Normal 12.0-16.0 [facility] Comment on above: Performed By: #### C MP #### [facility] [address] [place] [address] Dr. Nilton Mccall IG # 0.02 10e3/ul Normal 0.00-0.03 [facility] Comment on above: Performed By: #### C MP #### [facility] [address] [place] [address] Dr. Nilton Mccall IG % 0.3 % Normal 0.0-0.5 [facility] Comment on above: Performed By: #### C MP #### [facility] [address] [place] [address] Dr. Nilton Mccall LYMPH # 1.4 103/ul Normal 1.2-3.8 [facility] Comment on above: Performed By: #### C MP #### [facility] [address] [place] [address] Dr. Nilton Mccall Lymphocytes/100 WBC (Bld) 22.3 % Normal 20.5-60.0 [facility] Comment on above: Performed By: #### C MP #### [facility] [address] [place] [address] Dr. Nilton Mccall MANUAL DIFF REQ NO Normal [facility] Comment on above: Performed By: #### C MP #### [facility] [address] [place] [address] Dr. Nilton Mccall MCH (RBC) [Entitic mass] 28.9 pg Normal 26.7-34.0 [facility] Comment on above: Performed By: #### C MP #### [facility] [address] [place] [address] Dr. Nilton Mccall MCHC (RBC) [Mass/Vol] 33.6 g/dL Normal 29.9-35.2 [facility] Comment on above: Performed By: #### C MP #### [facility] [address] [place] [address] Dr. Nilton Mccall MCV (RBC) [Entitic vol] 85.9 fL Normal 81.0-99.0 [facility] Comment on above: Performed By: #### C MP #### [facility] [address] [place] [address] Dr. Nilton Mccall MONO # 0.3 103/ul Normal 0.3-0.8 [facility] Comment on above: Performed By: #### C MP #### [facility] [address] [place] [address] Dr. Nilton Mccall Monocytes/100 WBC (Bld) 4.9 % Normal 1.7-12.0 [facility] Comment on above: Performed By: #### C MP #### [facility] [address] [place] [address] Dr. Nilton Mccall NEUT # 4.4 103/ul Normal 1.4-6.5 [facility] Comment on above: Performed By: #### C MP #### [facility] [address] [place] [address] Dr. Nilton Mccall Neutrophils/100 WBC (Bld) 68.8 % Normal 43.0-75.0 [facility] Comment on above: Performed By: #### C MP #### [facility] [address] [place] [address] Dr. Nilton Mccall Platelet mean volume (Bld) [Entitic vol] 9.9 fL Normal 9.5-13.5 [facility] Comment on above: Performed By: #### C MP #### [facility] [address] [place] [address] Dr. Nilton Mccall PLT 237 103/ul Normal 150-450 [facility] Comment on above: Performed By: #### C MP #### [facility] [address] [place] [address] Dr. Nilton Mccall RBC 4.98 106/ul Normal 4.20-5.40 [facility] Comment on above: Performed By: #### C MP #### [facility] [address] [place] [address] Dr. Nilton Mccall WBC 6.3 103/ul Normal 4.0-11.0 [facility] Comment on above: Performed By: #### C MP #### [facility] [address] [place] [address] Dr. Nilton Mccall GLYCOHEMOGLOBIN A1Con 2021 ADA RECOMMENDATION SEE BELOW Normal [facility] Comment on above: Result Comment: ADA RECOMMENDED LIMIT 4.0 - 6.0 ADA THERAPEUTIC TARGET < 7.0 ACTION SUGGESTED > 7.0 Performed By: #### P T, PTT #### [facility] [address] [place] [address] Dr. Nilton Mccall Glucose [Mass/Vol] 120 mg/dL Normal [facility] Comment on above: Performed By: #### P T, PTT #### [facility] [address] [place] [address] Dr. Nilton Mccall HbA1c (Bld) [Mass fraction] 5.8 % Normal 4.5-6.2 [facility] Comment on above: Performed By: #### P T, PTT #### [facility] [address] [place] [address] [address] Nilton Mccall LIPID PROFILEon 12-12-2021 CHOL-HDL RATIO NORM SEE BELOW Normal [facility] Comment on above: Result Comment: 3.3 - 4.4 LOW RISK 4.4 - 7.1 AVERAGE RISK 7.1 - 11.0 MODERATE RISK >11.0 HIGH RISK Performed By: #### P T, PTT #### [facility] [address] [place] [address] [address] Nilton Mccall Cholesterol [Mass/Vol] 225 mg/dL Critically high <=200 [facility] Comment on above: Performed By: #### P T, PTT #### [facility] [address] [place] [address] [address] Nilton Mccall Cholesterol in HDL [Mass/Vol] 32 mg/dL Critically low 40-60 [facility] Comment on above: Performed By: #### P T, PTT #### [facility] [address] [address] [address] Nilton Mccall Cholesterol in LDL [Mass/Vol] 132.8 mg/dL Normal [facility] Comment on above: Performed By: #### P T, PTT #### [facility] [address] [address] [address] Nilton Mccall Cholesterol.total/Ch olesterol in HDL [Mass ratio] 7.0 {ratio} Normal [facility] Comment on above: Performed By: #### P T, PTT #### [facility] [address] [address] [address] Nilton Mccall HDL NORMAL > or = 60 mg/dl - LO W CARDIOVASCULAR RISK <40 mg/dl - HIGH CARDIOVASCULAR RISK Normal [facility] Comment on above: Performed By: #### P T, PTT #### [facility] [address] [address] [address] Nilton Mccall LDL CALC NORMAL SEE BELOW Normal [facility] Comment on above: Result Comment: <100 mg/dl OPTIMAL 100 - 129 mg/dl NEAR OR ABOVE OPTIMAL 130 - 159 mg/dl BORDERLINE HIGH 160 - 189 mg/dl HIGH >190 mg/dl VERY HIGH Performed By: #### P T, PTT #### [facility] [address] [place] [address] Dr. Nilton Mccall Triglyceride [Mass/Vol] 301 mg/dL Critically high <=150 [facility] Comment on above: Performed By: #### P T, PTT #### [facility] [address] [place] [address] Dr. Nilton Mccall VLDL CALC 60.2 mg/dL Normal [facility] Comment on above: Performed By: #### P T, PTT #### [facility] [address] [place] [address] Dr. Nliton Mccall LIVER PROFILEon 12-12-2021 Albumin [Mass/Vol] 4.0 g/dL Normal 3.4-5.0 [facility] Comment on above: Performed By: #### P T, PTT #### [facility] [address] [place] [address] Dr. Nilton Mccall Albumin/Globulin [Mass ratio] 1.1 {ratio} Normal [facility] Comment on above: Performed By: #### P T, PTT #### [facility] [address] [place] [address] Dr. Nilton Mccall ALP [Catalytic activity/Vol] 70 U/L Normal 46-116 [facility] Comment on above: Performed By: #### P T, PTT #### [facility] [address] [place] [address] Dr. Nilton Mccall ALT [Catalytic activity/Vol] 30 U/L Normal 14-59 [facility] Comment on above: Performed By: #### P T, PTT #### [facility] [address] [place] [address] Dr. Nilton Mccall AST [Catalytic activity/Vol] 15 U/L Normal 15-37 [facility] Comment on above: Performed By: #### P T, PTT #### [facility] [address] [place] [address] Dr. Nilton Mccall BILI, CONJUGATED 0.1 mg/dL Normal 0.0-0.2 [facility] Comment on above: Performed By: #### P T, PTT #### [facility] [address] [place] [address] Dr. Nilton Mccall Bilirubin [Mass/Vol] 0.3 mg/dL Normal 0.2-1.0 [facility] Comment on above: Performed By: #### P T, PTT #### [facility] [address] [place] [address] Dr. Nilton Mccall Globulin (S) [Mass/Vol] 3.5 g/dL Normal [facility] Comment on above: Performed By: #### P T, PTT #### [facility] [address] [place] [address] Dr. Nilton Mccall Protein [Mass/Vol] 7.5 g/dL Normal 6.4-8.2 [facility] Comment on above: Performed By: #### P T, PTT #### [facility] [address] [place] [address] Dr. Nilton Mccall PROF CHEM 8 (BAS METB)on Anion gap [Moles/Vol] 7.2 mmol/L Normal [facility] Comment on above: Performed By: #### P T, PTT #### [facility] [address] [place] [address] Dr. Nilton Mccall Calcium [Mass/Vol] 9.1 mg/dL Normal 8.5-10.1 [facility] Comment on above: Performed By: #### P T, PTT #### [facility] [address] [place] [address] Dr. Nilton Mccall Chloride [Moles/Vol] 104 mmol/L Normal 98-107 [facility] Comment on above: Performed By: #### P T, PTT #### [facility] [address] [place] [address] Dr. Nilton Mccall CO2 [Moles/Vol] 29.7 mmol/L Normal 21.0-32.0 [facility] Comment on above: Performed By: #### P T, PTT #### [facility] [address] [address] [address] Nilton Mccall Creatinine [Mass/Vol] 0.97 mg/dL Normal 0.55-1.02 [facility] Comment on above: Performed By: #### P T, PTT #### [facility] [address] [address] [address] Nilton Mccall EGFR-AF TUNISIAN >60 Normal >=60 [facility] Comment on above: Performed By: #### P T, PTT #### [facility] [address] [address] [address] Nilton Mccall EGFR-NON AF TUNISIAN >60 Normal >=60 [facility] Comment on above: Performed By: #### P T, PTT #### [facility] [address] [place] [address] Dr. Nilton Mccall Glucose [Mass/Vol] 92 mg/dL Normal 74-106 [facility] Comment on above: Performed By: #### P T, PTT #### [facility] [address] [place] [address] Dr. Nilton Mccall Potassium [Moles/Vol] 3.9 mmol/L Normal 3.5-5.1 [facility] Comment on above: Performed By: #### P T, PTT #### [facility] [address] [place] [address] Dr. Nilton Mccall Sodium [Moles/Vol] 137 mmol/L Normal 136-145 [facility] Comment on above: Performed By: #### P T, PTT #### [facility] [address] [place] [address] Dr. Nilton Mccall Urea nitrogen [Mass/Vol] 14.0 mg/dL Normal 7.0-18.0 [facility] Comment on above: Performed By: #### P T, PTT #### [facility] Laboratory [address] [place] [address] Dr. Nilton Mccall Urea nitrogen/Creatinine [Mass ratio] 14.4 mg/mg Normal [facility] Comment on above: Performed By: #### P T, PTT #### [facility] [place] [facility] [address] [address] [address] Nilton Mccall TSHon 12-12-2021 TSH 0.340 uIU/mL Critically low 0.358-3.74 0 [facility] Comment on above: Performed By: #### P T, PTT #### [facility] [place] [facility] [address] [address] [address] Nilton Mccall VITAMIN D 25 OHon 12-12-2021 VIT D 25-OH 44.3 ng/mL Normal [facility] Comment on above: Performed By: #### P T, PTT #### [facility] [place] [facility] [address] [address] [address] Nilton Mccall VIT D RANGES SEE BELOW Normal [facility] Comment on above: Result Comment: <20 ng/mL Vit D deficient 20 - <30 ng/mL Vit D insufficient 30 - 100 ng/mL Vit D sufficient >100 ng/mL Potential Toxicity Performed By: #### P T, PTT #### [facility] [place] [facility] [address] [place] [address] Dr. Nilton Mccall CNOVon 12-02-2021 CNOV Office Visit (SYNCMN ) LEANA TRAN ([id number]) 1985 F Date Time Provider Department 12/02/21 [...] [I95.1] Symptomatic bradycardia [R00.1] Order(s):SALINE LOCK DISCONTINUE [1826027] Order #: [id number]: 1 INTERMITTENT PERIPHERAL DEVICE ([place], [place]) [9082429] Order #: [id number]: 1 Prescriptions as of 12/02/2021 - arformoterol [...] - fremanezumab-vfrm subcutaneus auto-injector 225 mg/1.5 mL ([facility]) Inject 1.5 mL subcutaneously once every month. [...] 50 mg (more content not included)... Normal [facility] 12-01-2021 CNPN Telephone (CARDMN) LEANA TRAN ([id number]) 1985 F Date Time Provider Department 12/01/21 [...] - Anaphylaxis Comments: Tolerated with pre-medication on 8/18/22 Other reaction(s): Unknown Does not tolerate with [...] Physical deconditioning (more content not included)... Normal [facility] CNOVSPon 11-18-2021 CNOVSP Visit (SP) Office (H EMASA) LEANA TRAN ([id number]) 1985 F Date Time Provider Department 11/18/21 [...] breast ch (more content not included)... Normal [facility] CULTURE URINEon 11-18-2021 CULTURE URINE Culture Observations : HEAVY GROWTH OF MIXED GENITAL CHANCE. NO POTENTIAL PATHOGENS SEEN. Normal [facility] [place] [facility] Comment on above: Performed By: #### P T, PTT #### [facility] [place] [facility] [address] [address] [address] 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 Normal [facility] Telephone ([facility]) LEANA TRAN ([id number]) 1985 F Date Time Provider Department 11/15/21 [facility] During your visit today, we [...] reaction to (more content not included)... Normal [facility] CBC AUTO DIFFon 11-14-2021 BASO # 0.0 103/ul Normal 0.0-0.1 [facility] Comment on above: Performed By: #### P T, PTT #### [facility] [place] [facility] [address] [address] [address] Nilton Mccall Basophils/100 WBC (Bld) 0.6 % Normal 0.2-2.0 [facility] Comment on above: Performed By: #### P T, PTT #### [facility] [place] [facility] [address] [place] [address] Dr. Nilton Mccall EO # 0.2 103/ul Normal 0.0-0.7 [facility] [place] [facility] Comment on above: Performed By: #### P T, PTT #### [facility] [place] [facility] [address] [address] [address] Nilton Mccall Eosinophils/100 WBC (Bld) 2.6 % Normal 0.9-7.0 [facility] [place] [facility] Comment on above: Performed By: #### P T, PTT #### [facility] [place] [facility] [address] [place] [address] Dr. Nilton Mccall Erythrocyte distribution width (RBC) [Ratio] 11.9 % Normal 11.0-15.0 [facility] Comment on above: Performed By: #### P T, PTT #### [facility] [place] [facility] [address] [place] [address] Dr. Nilton Mccall Hematocrit (Bld) [Volume fraction] 39.7 % Normal 36.0-48.0 [facility] Comment on above: Performed By: #### P T, PTT #### [facility] [place] [facility] [address] [place] [address] Dr. Nilton Mccall Hemoglobin (Bld) [Mass/Vol] 13.8 g/dL Normal 12.0-16.0 [facility] Comment on above: Performed By: #### P T, PTT #### [facility] [place] [facility] [address] [place] [address] Dr. Nilton Mccall IG # 0.03 10e3/ul Normal 0.00-0.03 [facility] Comment on above: Performed By: #### P T, PTT #### [facility] [place] [facility] [address] [place] [address] Dr. Nilton Mccall IG % 0.5 % Normal 0.0-0.5 [facility] Comment on above: Performed By: #### P T, PTT #### [facility] [place] [facility] [address] [place] [address] Dr. Nilton Mccall LYMPH # 1.7 103/ul Normal 1.2-3.8 [facility] Comment on above: Performed By: #### P T, PTT #### [facility] [place] [facility] [address] [place] [address] Dr. Nilton Mccall Lymphocytes/100 WBC (Bld) 26.0 % Normal 20.5-60.0 [facility] Comment on above: Performed By: #### P T, PTT #### [facility] [place] [facility] [address] [place] [address] Dr. Nilton Mccall MANUAL DIFF REQ NO Normal [facility] Comment on above: Performed By: #### P T, PTT #### [facility] [place] [facility] [address] [place] [address] Dr. Nilton Mccall MCH (RBC) [Entitic mass] 29.6 pg Normal 26.7-34.0 [facility] Comment on above: Performed By: #### P T, PTT #### [facility] [place] [facility] [address] [address] [address] Nilton Mccall MCHC (RBC) [Mass/Vol] 34.8 g/dL Normal 29.9-35.2 [facility] Comment on above: Performed By: #### P T, PTT #### [facility] [place] [facility] [address] [place] [address] Dr. Nilton Mccall MCV (RBC) [Entitic vol] 85.0 fL Normal 81.0-99.0 [facility] Comment on above: Performed By: #### P T, PTT #### [facility] [place] [facility] [address] [place] [address] Dr. Nilton Mccall MONO # 0.3 103/ul Normal 0.3-0.8 [facility] Comment on above: Performed By: #### P T, PTT #### [facility] [place] [facility] [address] [place] [address] Dr. Nilton Mccall Monocytes/100 WBC (Bld) 5.1 % Normal 1.7-12.0 [facility] Comment on above: Performed By: #### P T, PTT #### [facility] [place] [facility] [address] [place] [address] Dr. Nilton Mccall NEUT # 4.2 103/ul Normal 1.4-6.5 [facility] Comment on above: Performed By: #### P T, PTT #### [facility] [place] [facility] [address] [place] [address] Dr. Nilton Mccall Neutrophils/100 WBC (Bld) 65.2 % Normal 43.0-75.0 [facility] [place] [facility] Comment on above: Performed By: #### P T, PTT #### [facility] [place] [facility] [address] [place] [address] Dr. Nilton Mccall Platelet mean volume (Bld) [Entitic vol] 9.4 fL Critically low 9.5-13.5 [facility] Comment on above: Performed By: #### P T, PTT #### [facility] [place] [facility] [address] [place] [address] Dr. Nilton Mccall PLT 232 103/ul Normal 150-450 [facility] [place] [facility] Comment on above: Performed By: #### P T, PTT #### [facility] [place] [facility] [address] [place], [place] [address] Dr. Nilton Mccall RBC 4.67 106/ul Normal 4.20-5.40 [facility] [place] [facility] Comment on above: Performed By: #### P T, PTT #### [facility] [place] [facility] [address] [place], [place] [address] Dr. Nilton Mccall WBC 6.4 103/ul Normal 4.0-11.0 [facility] [place] [facility] Comment on above: Performed By: #### P T, PTT #### [facility] [place] [facility] [address] [place], [place] [address] ABD/PELVIS WO CONon [...] BELÉN ANDRADE Date: 2021-11-14 14:24 Normal [facility] [place] [facility] ER URINE PROFILEon 2 Bilirubin Ql (U) Negative Normal NEGATIVE [facility] Comment on above: Performed By: #### C BC #### [facility] [place] [facility] [address] [address] [address] Nilton Mccall Clarity (U) CLEAR Normal CLEAR [facility] Comment on above: Performed By: #### C BC #### [facility] [place] [facility] [address] [place] [address] Dr. Nilton Mccall Color (U) LT. YELLOW Normal YELLOW [facility] Comment on above: Performed By: #### C BC #### [facility] [place] [facility] [address] [place] [address] Dr. Nilton Mccall ERUAHD A micrscopic examina tion will be performed if indicated. Normal [facility] [place] [facility] Comment on above: Performed By: #### C BC #### [facility] [place] [facility] [address] [place] [address] Dr. Nilton Mccall Glucose Ql (U) Negative Normal NEGATIVE [facility] Comment on above: Performed By: #### C BC #### [facility] [place] [facility] [address] [place] [address] Dr. Nilton Mccall Hemoglobin Ql (U) Negative Normal NEGATIVE [facility] Comment on above: Performed By: #### C BC #### [facility] [place] [facility] [address] [place] [address] Dr. Nilton Mccall Ketones Ql (U) Negative Normal NEGATIVE [facility] Comment on above: Performed By: #### C BC #### [facility] [place] [facility] [address] [place] [address] Dr. Nilton Mccall LEUKOCYTES Negative Normal NEGATIVE [facility] Comment on above: Performed By: #### C BC #### [facility] [place] [facility] [address] [place] [address] Dr. Nilton Mccall Nitrite Ql (U) Negative Normal NEGATIVE [facility] Comment on above: Performed By: #### C BC #### [facility] [place] [facility] [address] [place] [address] Dr. Nilton Mccall pH (U) 6.0 [pH] Normal 5-9 [facility] Comment on above: Performed By: #### C BC #### [facility] [place] [facility] [address] [place] [address] Dr. Nilton Mccall SPEC GRAVITY 1.025 Normal 1.005-<=1. 025 [facility] Comment on above: Performed By: #### C BC #### [facility] [place] [facility] [address] [place] [address] Dr. Nilton Mccall UA PROTEIN Negative Normal NEGATIVE/ TRACE [facility] [place] [facility] Comment on above: Performed By: #### C BC #### [facility] [place] [facility] [address] [address] [address] Nilton Mccall UR MICRO IND NOT INDICATED Normal [facility] Comment on above: Performed By: #### C BC #### [facility] [place] [facility] [address] [address] [address] Nilton Mccall Urobilinogen Qn (U) 0.2 {Zarina'U}/dL Normal 0.2 - 1. 0 [facility] Comment on above: Performed By: #### C BC #### [facility] [place] [facility] [address] [place] [address] Dr. Nilton Mccall MONOon 11-14-2021 Monocytes (Bld) [#/Vol] Negative Normal NEGATIVE [facility] Comment on above: Performed By: #### P T, PTT #### [facility] [place] [facility] [address] [place] [address] Dr. Nilton Mccall PROF 14(COMP METB)on 022 Albumin [Mass/Vol] 3.8 g/dL Normal 3.4-5.0 [facility] Comment on above: Performed By: #### C MP #### [facility] [place] [facility] [address] [place] [address] Dr. Nilton Mccall Albumin/Globulin [Mass ratio] 1.2 {ratio} Normal [facility] Comment on above: Performed By: #### C MP #### [facility] [place] [facility] [address] [place] [address] Dr. Nilton Mccall ALP [Catalytic activity/Vol] 65 U/L Normal 46-116 [facility] Comment on above: Performed By: #### C MP #### [facility] [place] [facility] [address] [place] [address] Dr. Nilton Mccall ALT [Catalytic activity/Vol] 29 U/L Normal 14-59 [facility] Comment on above: Performed By: #### C MP #### [facility] [place] [facility] [address] [address] [address] Nilton Mccall Anion gap [Moles/Vol] 8.6 mmol/L Normal [facility] Comment on above: Performed By: #### C MP #### [facility] [place] [facility] [address] [place] [address] Dr. Nilton Mccall AST [Catalytic activity/Vol] 13 U/L Critically low 15-37 [facility] Comment on above: Performed By: #### C MP #### [facility] [place] [facility] [address] [place] [address] Dr. Nilton Mccall Bilirubin [Mass/Vol] 0.4 mg/dL Normal 0.2-1.0 [facility] Comment on above: Performed By: #### C MP #### [facility] [place] [facility] [address] [place] [address] Dr. Nilton Mccall Calcium [Mass/Vol] 8.9 mg/dL Normal 8.5-10.1 [facility] Comment on above: Performed By: #### C MP #### [facility] [place] [facility] [address] [place] [address] Dr. Nilton Mccall Chloride [Moles/Vol] 106 mmol/L Normal 98-107 [facility] [place] [facility] Comment on above: Performed By: #### C MP #### [facility] [place] [facility] [address] [place] [address] Dr. Nilton Mccall CO2 [Moles/Vol] 26.2 mmol/L Normal 21.0-32.0 [facility] Comment on above: Performed By: #### C MP #### [facility] [place] [facility] [address] [place] [address] Dr. Nilton Mccall Creatinine [Mass/Vol] 1.12 mg/dL Critically high 0.55-1.02 [facility] Comment on above: Performed By: #### C MP #### [facility] [place] [facility] [address] [place] [address] Dr. Nilton Mccall EGFR-AF TUNISIAN >60 Normal >=60 [facility] Comment on above: Performed By: #### C MP #### [facility] [place] [facility] [address] [place] [address] Dr. Nilton Mccall EGFR-NON AF TUNISIAN 55 mL/min/1.73m2 Critically low >=60 [facility] Comment on above: Performed By: #### C MP #### [facility] [place] [facility] [address] [address] [address] Nilton Mccall Globulin (S) [Mass/Vol] 3.3 g/dL Normal [facility] Comment on above: Performed By: #### C MP #### [facility] [place] [facility] [address] [address] [address] Nilton Mccall Glucose [Mass/Vol] 88 mg/dL Normal 74-106 [facility] Comment on above: Performed By: #### C MP #### [facility] [place] [facility] [address] [place] [address] Dr. Nilton Mccall Potassium [Moles/Vol] 3.8 mmol/L Normal 3.5-5.1 [facility] Comment on above: Performed By: #### C MP #### [facility] [place] [facility] [address] [address] [address] Nilton Mccall Protein [Mass/Vol] 7.1 g/dL Normal 6.4-8.2 [facility] Comment on above: Performed By: #### C MP #### [facility] [place] [facility] [address] [address] [address] Nilton Mccall Sodium [Moles/Vol] 137 mmol/L Normal 136-145 [facility] Comment on above: Performed By: #### C MP #### [facility] [place] [facility] [address] [address] [address] Nilton Mccall Urea nitrogen [Mass/Vol] 14.0 mg/dL Normal 7.0-18.0 [facility] Comment on above: Performed By: #### C MP #### [facility] [place] [facility] [address] [place] [address] Dr. Nilton Mccall Urea nitrogen/Creatinine [Mass ratio] 12.5 mg/mg Normal [facility] Comment on above: Performed By: #### C MP #### [facility] [place] [facility] [address] [place] [address] Dr. Nilton Mccall CNOVSPon 11-03-2021 CNOVSP Visit (SP) Office (H EMASA) MARCLEANA Tan ([id number]) 1985 F Date Time Provider Department 11/03/21 [...] workup. PLAN: 1. Need Mammogram results from [place] 2. Proceed with genetic testing for platelet [...] AND SOCI (more content not included)... Normal [facility] CNPNon 11-01-2021 CNPN Telephone (GMINE) LEANA TRAN ([id number]) 1985 F Date Time Provider Department 11/01/21 [...] testing including a bleeding disorders panel through [facility]. We reviewed self-pay options for this testing, and the patient is interested in pursuing testing on a self-pay basis. The listed self-pay fuller on [employer] website is $1060. 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 Fuentes Amaral during their meeting scheduled for this 11/03/21 before making her final decision. The patient agreed to send me a [employer] message with her decision following her appointment with Dr. Amaral. For additional context please see my clinic note from 08/03/21. Juan Ramon Briones MS, [facility], PhD Licensed, Certified Genetic Counselor [facility] CC: Dr. Fuentes Amaral Allergies As of [...] Date Reviewed: 10/31/2021 Reviewed by: Landen Clark APRN.MANAGED SERVICES CONSULTANT - Fully Assessed Reason for Visit: Insurance [...] as o (more content not included)... Normal [facility] 10-28-2021 [facility] Telephone (MNOPRX) LEANA TRAN ([id number]) 1985 F Date Time Provider Department 10/28/21 FARIBA GUTHRIE During your visit today, we recorded the following information about you: Fariba Guthrie [facility] 10/28/2021 2:24 PM Signed Benefits investigation was conducted, indicating that a prior authorization is required for Ajovy auto-injector 225 mg/1.5 mL . PA was initiated and pending review through [employer]. All pertinent clinical information was submitted to insurance. CMM [place]: [id number] Ordering Provider: GIOVANNA Chi, Pharmacist [facility] P: , F: Jenni Rocha RN 11/01/2021 9:18 AM Signed Ambulatory Pharmacy Prior Authorization Note Provider Intervention Required?: No- Pharmacy completed on your behalf. Drug: AJOVY (fremanezumab-vfrm) injection 225MG/1.5ML auto-injectors Cover My Meds [place]: [id number] Determination: Denied PA Denied because: Medical necessity not met Prior Authorization/Case #: [id number] Prior Authorization Expiration: n/A Time to PA [...] feel free to send new eRx to [facility] at that time. No further action by [facility] for now and existing order to be profiled. Jenni Rocha, CYNTHIA [facility] P: , F: For questions relating to this submission, please contact [facility] [phone] Bhargavi Saldana PA-C 11/01/2021 9:27 AM Signed [...] Fully Assessed Reason for Visit: Insurance Authorization [9783] Cmt: Ajsushilay Prescriptions as of 11/28/2021 - arformoterol (BROVANA) [...] mg by (more content not included)... [facility] ([facility]) LEANA TRAN ([id number]) 1985 F Date Time Provider Department 10/27/21 [...] Fully Assessed Reason for Visit: Lab Orders [4958] Prescriptions as of 03/10/2022 - DULoxetine (CYMBALTA) [...] [R52] 08/24/19 (more content not included)... Normal [facility] Feroz 10-24-2021 RYANNE Telephone (HEMTSA) MARCLEANA Tan ([id number]) 1985 F Date Time Provider Department 10/24/21 [...] 10/20/2021 Encount (more content not included)... Normal [facility] MG MAMM DIAGNOSTIC 3D LARS CA Don 10-19-2021 MG MAMM DIAGNOSTIC 3D LARS CAD Patient: LEANA TRAN Exam Date: 10/19/2021 : 1985 Gender:F Ordering : DR CAS DOWELL . Admission #: [id number] Family : Order #: [id number] CLICK HERE TO VIEW EXAM RADIOLOGY REPORT [...] cervical cancer at age 48. LOCATION: [facility] [place] [facility] BREAST COMPOSITION: Scattered areas fibroglandular density. FINDINGS: [...] M.D. on 10/19/2021 at 11:10 Normal [facility] [place] [facility] US BREAST LARS LIMITEDon 09- US BREAST LARS LIMITED Patient: LEANA TRAN Exam Date: 10/19/2021 : 1985 Gender:F Ordering : DR CAS DOWELL . Admission #: [id number] Family : Order #: [id number] CLICK HERE TO VIEW EXAM RADIOLOGY REPORT [...] cervical cancer at age 48. LOCATION: [facility] [place] [facility] BREAST COMPOSITION: Scattered areas fibroglandular density. FINDINGS: [...] M.D. on 10/19/2021 at 11:10 Normal [facility] [place] [facility] XR CHEST 2V FRONTAL/LATon [facility] LUNG DIFFUSION CAPACITY (FARHAD O)on 09-27-2021 DLCO (ml/min/mmHg) 22.00 ml/min/mmHg [facility] DLCO/VA (ml/min/mmHg/L) 4.60 ml/min/mmHg/L [facility] DLCOcor (ml/min/mmHg) 21.26 ml/min/mmHg [facility] ERV BOX (L) 0.28 L [facility] CHA58-29% POST (L/S) 2.46 L/S [facility] ORD15-39% PRE (L/S) 2.13 L/S [facility] [place] FEV1 PRE (L) 2.83 L [facility] FEV1/FVC POST (%) 74 % [facility] FEV1/FVC PRE (%) 73 % [facility] FEV1_POST (L) 2.92 L [facility] FRC Box (L) 1.66 L [facility] FVC POST (L) 3.92 L [facility] FVC PRE (L) 3.89 L [facility] IC BOX (L) 2.36 L [facility] PEF POST (L/S) 5.48 L/S [facility] PEF PRE (L/S) 5.56 L/S [facility] RV Box (L) 1.39 L [facility] RV/TLC Box (%) 32 % [facility] TLC Box (L) 4.36 L [facility] VA (L) 4.78 L [facility] VC (L) BOX 3.51 L [facility] CTA CHEST WO W CONon 022 CTA [...] by: AYAKA STEARNS Date: 2021-09-22 22:30 Normal [facility] PROF CHEM 8 (BAS METB)on Anion gap [Moles/Vol] 5.4 mmol/L Normal [facility] Comment on above: Performed By: #### B MP #### [facility] [place] [facility] [address] [address] [address] Nilton Mccall Calcium [Mass/Vol] 9.2 mg/dL Normal 8.5-10.1 [facility] Comment on above: Performed By: #### B MP #### [facility] [place] [facility] [address] [address] [address] Nilton Mccall Chloride [Moles/Vol] 102 mmol/L Normal 98-107 [facility] Comment on above: Performed By: #### B MP #### [facility] [place] [facility] [address] [address] [address] Nilton Mccall CO2 [Moles/Vol] 26.1 mmol/L Normal 21.0-32.0 [facility] Comment on above: Performed By: #### B MP #### [facility] [place] [facility] [address] [address] [address] Nilton Mccall Creatinine [Mass/Vol] 0.99 mg/dL Normal 0.55-1.02 [facility] Comment on above: Performed By: #### B MP #### [facility] [place] [facility] [address] [address] [address] Nilton Mccall EGFR-AF TUNISIAN >60 Normal >=60 [facility] Comment on above: Performed By: #### B MP #### [facility] [place] [facility] [address] [address] [address] Nilton Mccall EGFR-NON AF TUNISIAN >60 Normal >=60 [facility] Comment on above: Performed By: #### B MP #### [facility] [place] [facility] [address] [address] Dr. Nilton Mccall Glucose [Mass/Vol] 113 mg/dL Critically high 74-106 [facility] Comment on above: Performed By: #### B MP #### [facility] [address] [address] [address] Nilton Mccall Potassium [Moles/Vol] 3.5 mmol/L Normal 3.5-5.1 [facility] Comment on above: Performed By: #### B MP #### [facility] [address] [address] [address] Nilton Mccall Sodium [Moles/Vol] 130 mmol/L Critically low 136-145 Th [facility] Comment on above: Performed By: #### B MP #### [facility] [address] [address] [address] Nilton Mccall Urea nitrogen [Mass/Vol] 13.0 mg/dL Normal 7.0-18.0 [facility] Comment on above: Performed By: #### B MP #### [facility] [address] [address] [address] Nilton Mccall Urea nitrogen/Creatinine [Mass ratio] 13.1 mg/mg Normal [facility] Comment on above: Performed By: #### B MP #### [facility] [address] [address] [address] Nilton Mccall GLYCOHEMOGLOBIN A1Con 2021 ADA RECOMMENDATION SEE BELOW Normal [facility] Comment on above: Result Comment: ADA RECOMMENDED LIMIT 4.0 - 6.0 ADA THERAPEUTIC TARGET < 7.0 ACTION SUGGESTED > 7.0 Performed By: #### C BC #### [facility] [address] [address] [address] Nilton Mccall Glucose [Mass/Vol] 140 mg/dL Normal [facility] Comment on above: Performed By: #### C BC #### [facility] [address] [address] [address] Nilton Mccall HbA1c (Bld) [Mass fraction] 6.5 % Critically high 4.5-6.2 [facility] Comment on above: Performed By: #### C BC #### [facility] [address] [address] [address] Nilton Mccall ECHOon 08-17-2021 Echocardiography Echocardiography Rep ort: Transthoracic Echo [facility] Date of service: 08/17/2021 2:18:31 PM Ordering physician: SAI PEREZ Indication: Hypotension Technologist: Yuni Durbin [facility] Interpreting physician: Gavin Muse MD PATIENT: Name: [...] * * Final * * * CC [address] [facility] Image : [id number] [employer] Normal [facility] LVEF ECHOon 08-17-2021 LV Ejection Fraction 58 % [facility] PAP ACOG PANEL 2: 30 to 65on 08-05-2021 . . Normal [facility] Comment on above: Result Comment: Perf ormed at: WB Performed By: #### P T, PTT #### [facility] [address] [address] [address] Nilton Mccall Age Gdln ACOG Testing - Normal [facility] Comment on above: Performed By: #### P T, PTT #### [facility] [address] [address] [address] Nilton Mccall DIAGNOSIS: Comment Normal [facility] Comment on above: Result Comment: NEGA TIVE FOR INTRAEPITHELIAL LESION OR MALIGNANCY. Performed at: WB Performed By: #### P T, PTT #### [facility] [address] [address] [address] Nilton Mccall HPV Aptima Negative Normal Negative [facility] Comment on above: Result Comment: This nucleic acid amplification test detects fourteen high-risk HPV types (16,18,31,33,35,39,45,51,52,56,58,59,66,68) without differentiation. Performed at: =G Performed By: #### P T, PTT #### [facility] [address] [place] [address] Dr. Nilton Mccall Methodology: Comment Normal [facility] Comment on above: Result Comment: This liquid based ThinPrep(R) pap test was screened with the use of an image guided system. Performed at: WB Performed By: #### P T, PTT #### [facility] [address] [place] [address] Dr. Nilton Mccall Note: Comment Normal [facility] Comment on above: Result Comment: The [...] Performed By: #### P T, PTT #### [facility] [address] [place] [address] Dr. Nilton Mccall Performed by: Comment Normal [facility] Comment on above: Result Comment: Jay Ellison, Receiving Tank Operator (ASCP) Performed at: WB Performed By: #### P T, PTT #### [facility] [address] [place] [address] Dr. Nilton Mccall Specimen adequacy: Comment Normal [facility] Comment on above: Result Comment: Sati sfactory for evaluation. No endocervical component is identified. Performed at: WB Performed By: #### P T, PTT #### [facility] [address] [place] [address] Dr. Nilton Mccall C3 SerPl-mCncon 07-25-2021 Complement C3 [Mass/Vol] 165 mg/dL Normal 86-166 [facility] Comment on above: Order Comment: Speci men Type: BLOOD SPECIMEN Ordering Facility: [facility] Address: [address] [place] [address] Performed By: #### 4 485-9, 4498-2 #### [facility] CLIA [id number] [address] [place] [address] [place] C4 SerPl-mCncon 07-25-2021 Complement C4 [Mass/Vol] 32 mg/dL Normal 13-46 [facility] Comment on above: Order Comment: Speci men Type: BLOOD SPECIMEN Ordering Facility: [facility] Address: [address] [place] [address] Performed By: #### 4 485-9, 4498-2 #### [facility] CLIA [id number] [address] [place] [address] TRYPTASE BLOODon 07-25-2021 Tryptase [Mass/Vol] 3.4 ug/L Normal <8.4 [facility] Comment on above: Order Comment: Speci men Type: BLOOD SPECIMEN Ordering Facility: [facility] Address: [address] [place] [address] Performed By: #### T RYPT #### [facility] CLIA [id number] [address] [place] [address] [facility] ACTH [facility] 07-18-2021 Corticotropin (P) [Mass/Vol] 15.5 pg/mL 7.2 - 63.3 pg/mL [facility] CORTISOL [facility] 07-18-2021 Cortisol [Mass/Vol] 9.9 ug/dL 4.8 - 19 .5 ug/dL [facility] Alpha tocopherol [Mass/Vol]o n 07-07-2021 Beta+gamma tocopherol [Mass/Vol] 3.0 mg/L 0.3 - 3.2 mg/L [facility] VITAMIN E/TOCOPHEROLon 07-07 Alpha tocopherol [Mass/Vol] 13.1 mg/L 6.0 - 23.0 mg/L [facility] ACTH [facility] 07-02-2021 Corticotropin (P) [Mass/Vol] 15.1 pg/mL 7.2 - 63.3 pg/mL [facility] CERULOPLASMIN [facility] 07-02-19 22 Ceruloplasmin [Mass/Vol] 23 mg/dL 16 - 45 mg/dL [facility] CK CREATINE KINASEon 022 CK [Catalytic activity/Vol] 51 U/L 42 - 196 U/L [facility] CORTISOL Don 07-01-2021 Cortisol [Mass/Vol] 7.4 ug/dL 4.8 - 19 .5 ug/dL [facility] DHEA-S [facility] 07-01-2021 DHEA-S [Mass/Vol] 35.9 ug/dL Low 60.9 - 337.0 ug/dL [facility] FERRITIN [facility] 07-01-2021 Ferritin [Mass/Vol] 98.2 ng/mL 14.7 - 205.1 ng/mL [facility] BNPon 06-24-2021 Natriuretic peptide B (Bld) [Mass/Vol] 15.0 pg/mL Normal <=450.0 [facility] Comment on above: Performed By: #### C BC #### [facility] [address] [place] [address] Dr. Nilton Mccall CARDIAC CHAYO 3-6on 2 CK [Catalytic activity/Vol] 60 U/L Normal 26-192 [facility] Comment on above: Performed By: #### C MREP #### [facility] [address] [place] [address] Dr. Nilton Mccall CK.MB [Mass/Vol] 0.33 ng/mL Normal <=3.60 [facility] Comment on above: Performed By: #### C MREP #### [facility] [address] [place] [address] Dr. Nilton Mccall HSTROP 4.7 pg/mL Normal 4.0-51.3 [facility] Comment on above: Result Comment: CUT- OFF POINTS HAVE BEEN ESTABLISHED BASED ON THE FOURTH UNIVERSAL DEFINITIONS OF MYOCARDIAL INFARCTION. THE UPPER REFERENCE LIMIT (URL) OF TROPONIN, DEFINED THE 99TH PERCENTILE OF cTnI DISTRIBUTION IN A REFERENCE POPULATION, HAS BEEN CONFIRMED THE DECISION THRESHOLD FOR [place] DIAGNOSIS. Performed By: #### C MREP #### [facility] [address] [place] [address] Dr. Nilton Mccall CARDIAC CHAYO ADMITon 022 CK [Catalytic activity/Vol] 71 U/L Normal 26-192 [facility] Comment on above: Performed By: #### C BC #### [facility] [address] [place] [address] Dr. Nilton Mccall CK.MB [Mass/Vol] 0.50 ng/mL Normal <=3.60 [facility] Comment on above: Performed By: #### C BC #### [facility] [address] [place] [address] Dr. Nilton Mccall HSTROP 3.8 pg/mL Critically low 4.0-51.3 [facility] Comment on above: Result Comment: CUT- OFF POINTS HAVE BEEN ESTABLISHED BASED ON THE FOURTH UNIVERSAL DEFINITIONS OF MYOCARDIAL INFARCTION. THE UPPER REFERENCE LIMIT (URL) OF TROPONIN, DEFINED THE 99TH PERCENTILE OF cTnI DISTRIBUTION IN A REFERENCE POPULATION, HAS BEEN CONFIRMED THE DECISION THRESHOLD FOR KS DIAGNOSIS. Performed By: #### C BC #### [facility] [address] [place] [address] Dr. Nilton Mccall PILI 25 ng/mL Normal 9-82 [facility] Comment on above: Performed By: #### C BC #### [facility] [address] [place] [address] Dr. Nilton Mccall CBC AUTO DIFFon 06-24-2021 BASO # 0.1 103/ul Normal 0.0-0.1 [facility] Comment on above: Performed By: #### C MP #### [facility] [address] [place] [address] Dr. Nilton Mccall Basophils/100 WBC (Bld) 0.6 % Normal 0.2-2.0 [facility] Comment on above: Performed By: #### C MP #### [facility] [address] [place] [address] Dr. Nilton Mccall EO # 0.2 103/ul Normal 0.0-0.7 [facility] Comment on above: Performed By: #### C MP #### [facility] [address] [place] [address] Dr. Nilton Mccall Eosinophils/100 WBC (Bld) 2.2 % Normal 0.9-7.0 [facility] Comment on above: Performed By: #### C MP #### [facility] [address] [place] [address] Dr. Nilton Mccall Erythrocyte distribution width (RBC) [Ratio] 11.8 % Normal 11.0-15.0 [facility] Comment on above: Performed By: #### C MP #### [facility] [address] [address] [address] Nilton Mccall Hematocrit (Bld) [Volume fraction] 43.4 % Normal 36.0-48.0 [facility] Comment on above: Performed By: #### C MP #### [facility] [address] [address] [address] Nilton Mccall Hemoglobin (Bld) [Mass/Vol] 14.8 g/dL Normal 12.0-16.0 [facility] Comment on above: Performed By: #### C MP #### [facility] [address] [address] [address] Nilton Mccall IG # 0.04 10e3/ul Critically high 0.00-0.03 [facility] Comment on above: Performed By: #### C MP #### [facility] [address] [address] [address] Nilton Mccall IG % 0.4 % Normal 0.0-0.5 [facility] Comment on above: Performed By: #### C MP #### [facility] [address] [address] [address] Nilton Mccall LYMPH # 2.0 103/ul Normal 1.2-3.8 [facility] Comment on above: Performed By: #### C MP #### [facility] [address] [place] [address] Dr. Nilton Mccall Lymphocytes/100 WBC (Bld) 21.5 % Normal 20.5-60.0 [facility] Comment on above: Performed By: #### C MP #### [facility] [address] [address] [address] Nilton Mccall MANUAL DIFF REQ NO Normal [facility] Comment on above: Performed By: #### C MP #### [facility] [address] [place] [address] Dr. Nilton Mccall MCH (RBC) [Entitic mass] 29.4 pg Normal 26.7-34.0 [facility] Comment on above: Performed By: #### C MP #### [facility] [address] [address] [address] Nilton Mccall MCHC (RBC) [Mass/Vol] 34.1 g/dL Normal 29.9-35.2 [facility] Comment on above: Performed By: #### C MP #### [facility] [address] [address] [address] Nilton Mccall MCV (RBC) [Entitic vol] 86.1 fL Normal 81.0-99.0 [facility] Comment on above: Performed By: #### C MP #### [facility] [address] [address] [address] Nilton Mccall MONO # 0.5 103/ul Normal 0.3-0.8 [facility] Comment on above: Performed By: #### C MP #### [facility] [address] [place] [address] Dr. Nilton Mccall Monocytes/100 WBC (Bld) 5.4 % Normal 1.7-12.0 [facility] Comment on above: Performed By: #### C MP #### [facility] [address] [place] [address] Dr. Nilton Mccall NEUT # 6.3 103/ul Normal 1.4-6.5 [facility] Comment on above: Performed By: #### C MP #### [facility] [address] [place] [address] Dr. Nilton Mccall Neutrophils/100 WBC (Bld) 69.9 % Normal 43.0-75.0 [facility] Comment on above: Performed By: #### C MP #### [facility] [address] [place] [address] Dr. Nilton Mccall Platelet mean volume (Bld) [Entitic vol] 9.6 fL Normal 9.5-13.5 [facility] Comment on above: Performed By: #### C MP #### [facility] [address] [place] [address] Dr. Nilton Mccall PLT 290 103/ul Normal 150-450 [facility] Comment on above: Performed By: #### C MP #### [facility] [address] [address] [address] Nilton Mccall RBC 5.04 106/ul Normal 4.20-5.40 [facility] Comment on above: Performed By: #### C MP #### [facility] [address] [address] [address] Nilton Mccall WBC 9.1 103/ul Normal 4.0-11.0 [facility] Comment on above: Performed By: #### C MP #### [facility] [id number] Nilton Mccall CT STROKE HEAD WOon [...] MAREK EPSTEIN Date: 2021-06-24 20:56 Normal [facility] CT STROKE HEAD WO NONCONTRAST [...] MAREK EPSTEIN Date: 2021-06-24 19:15 Normal [facility] Covid-19 PCR (CVDTBH)on 06-06 SARS-CoV-2 (COVID-19) RNA CHRISTI+probe Ql (Unsp spec) Not detected Normal NOT DETECTED [facility] Comment on above: Result Comment: When diagnostic [...] for this test is supported by the District Court Administrator of Health and Human Service's declaration that [...] Performed By: #### P T, PTT #### [facility] [address] [place] [address] Dr. Nilton Mccall ER URINE PROFILEon 2 Bilirubin Ql (U) Negative Normal NEGATIVE [facility] Comment on above: Performed By: #### E RUR, PREGU #### [facility] [address] [place] [address] Dr. Nilton Mccall Clarity (U) CLEAR Normal CLEAR [facility] Comment on above: Performed By: #### E RUR, PREGU #### [facility] [address] [place] [address] Dr. Nilton Mccall Color (U) YELLOW Normal YELLOW [facility] Comment on above: Performed By: #### E RUR, PREGU #### [facility] [address] [place] [address] Dr. Nilton Mccall ERUAHD A micrscopic examina tion will be performed if indicated. Normal [facility] Comment on above: Performed By: #### E RUR, PREGU #### [facility] [address] [place] [address] Dr. Nilton Mccall Glucose Ql (U) Negative Normal NEGATIVE [facility] Comment on above: Performed By: #### E RUR, PREGU #### [facility] [address] [place] [address] Dr. Nilton Mccall Hemoglobin Ql (U) Negative Normal NEGATIVE [facility] Comment on above: Performed By: #### E RUR, PREGU #### [facility] [address] [place] [address] Dr. Nilton Mccall Ketones Ql (U) Negative Normal NEGATIVE [facility] Comment on above: Performed By: #### E RUR, PREGU #### [facility] [address] [place] [address] Dr. Nilton Mccall LEUKOCYTES Negative Normal NEGATIVE [facility] Comment on above: Performed By: #### E RUR, PREGU #### [facility] [address] [place] [address] Dr. Nilton Mccall Nitrite Ql (U) Negative Normal NEGATIVE [facility] Comment on above: Performed By: #### E RUR, PREGU #### [facility] [address] [place] [address] Dr. Nilton Mccall pH (U) 6.0 [pH] Normal 5-9 [facility] Comment on above: Performed By: #### E RUR, PREGU #### [facility] [address] [place] [address] Dr. Nilton Mccall SPEC GRAVITY 1.015 Normal 1.005-<=1. 025 [facility] Comment on above: Performed By: #### E RUR, PREGU #### [facility] [address] [place] [address] Dr. Nilton Mccall UA PROTEIN Negative Normal NEGATIVE/ TRACE [facility] Comment on above: Performed By: #### E RUR, PREGU #### [facility] [address] [place] [address] Dr. Nilton Mccall UR MICRO IND NOT INDICATED Normal [facility] Comment on above: Performed By: #### E RUR, PREGU #### [facility] [address] [place] [address] Dr. Nilton Mccall Urobilinogen Qn (U) 0.2 {Zarina'U}/dL Normal 0.2 - 1. 0 [facility] Comment on above: Performed By: #### E RUR, PREGU #### [facility] [address] [place] [address] Dr. Nilton Mccall LACTATE/LACTIC ACIDon 2021 Lactate [Moles/Vol] 1.0 mmol/L Normal 0.4-1.9 [facility] Comment on above: Performed By: #### P T, PTT #### [facility] [address] [place] [address] Dr. Nilton Mccall LIPASEon 06-24-2021 Lipase [Catalytic activity/Vol] 103.0 U/L Normal 73.0-393.0 [facility] Comment on above: Performed By: #### C BC #### [facility] [address] [place] [address] Dr. Nilton Mccall PH VENOUS BLOODon 06-24-2021 PCO2 VENOUS 29.4 mmHg Critically low 40.0-52.0 [facility] Comment on above: Performed By: #### P T, PTT #### [facility] [address] [place] [address] Dr. Nilton Mccall pH VENOUS 7.478 Critically high 7.330-7.43 0 [facility] Comment on above: Performed By: #### P T, PTT #### [facility] [address] [place] [address] Dr. Nilton Mccall POINT OF CARE GLUCOSEon 06-06 Glucose [Mass/Vol] 107 mg/dL Critically high 74-106 [facility] Comment on above: Performed By: #### C MP #### [facility] [address] [place] [address] Dr. Nilton Mccall URon 06-24-2021 , QUAL Negative Normal NEGATIVE [facility] Comment on above: Performed By: #### E RUR, PREGU #### [facility] [address] [place] [address] Dr. Nilton Mccall PROTIMEon 06-24-2021 INR Coag (PPP) [Relative time] 0.99 {INR} Normal [facility] Comment on above: Performed By: #### P T, PTT #### [facility] [address] [place] [address] Dr. Nilton Mccall INR GUIDELINES SEE BELOW Normal [facility] Comment on above: Result Comment: JOSS RED INR: 2.0 - 3.0 CONDITIONS NOT LISTED BELOW 2.5 - 3.5 FOR PROSTHETIC HEART VALVE REPLACEMENT 2.5 - 3.5 RECURRENT THROMBOSIS Performed By: #### P T, PTT #### [facility] [address] [place] [address] Dr. Nilton Mccall PT Coag (PPP) [Time] 10.7 s Normal 9.0-11.6 [facility] Comment on above: Performed By: #### P T, PTT #### [facility] [address] [place] [address] Dr. Nilton Mccall PTTon 06-24-2021 aPTT Coag (Bld) [Time] 32.5 s Normal 22.3-36.2 [facility] Comment on above: Performed By: #### P T, PTT #### [facility] [address] [place] [address] Dr. Nilton Mccall TSHon 06-24-2021 TSH 0.655 uIU/mL Normal 0.358-3.74 0 [facility] Comment on above: Performed By: #### C BC #### [facility] [address] [place] [address] Dr. Nilton Mccall TSH RANGE SEE BELOW Normal [facility] Comment on above: Result Comment: <0.3 4 UIU/ml HYPERTHYROID 0.34-5.60 UIU/ml EUTHYROID >5.60 UIU/ml HYPOTHYROID Performed By: #### C BC #### [facility] [address] [place] [address] Dr. Nilton Mccall XR CHEST 1 Von [...] BELÉN DC Date: 2021-06-24 19:14 Normal [facility] Basic Metabolic Panelon 06-05 Anion gap [Moles/Vol] 11 mmol/L 9 - 17 mmol/L [facility] Calcium [Mass/Vol] 9.3 mg/dL 8.6 - 10. 4 mg/dL [facility] Chloride [Moles/Vol] 102 mmol/L 98 - 10 7 mmol/L [facility] CO2 [Moles/Vol] 23 mmol/L 20 - 31 mmol/L [facility] Creatinine [Mass/Vol] 0.78 mg/dL 0.50 - 0.90 mg/dL [facility] GFR >60 >60 mL/min [facility] GFR Non- >60 >60 mL/min [facility] Glucose [Mass/Vol] 160 mg/dL High 70 - 99 mg/dL [facility] Interpretation and review of laboratory results Abnormal [facility] Potassium [Moles/Vol] 3.7 mmol/L 3.7 - 5.3 mmol/L [facility] Sodium [Moles/Vol] 136 mmol/L 135 - 144 mmol/L [facility] Urea nitrogen (BldV) [Mass/Vol] 12 mg/dL 6 - 20 mg/dL [facility] Urea nitrogen/Creatinine (Bld) [Mass ratio] 15 [facility] CBC with Auto Differentialon 06-21-2021 Absolute Eos # 0.21 [facility] th Absolute Immature Granulocyte 0.03 [facility] Absolute Lymph # 2.[address] [facility] alth Absolute [place] # 0.43 [facility] Basophils (Bld) [#/Vol] 0.05 10*3/uL [facility] Basophils/100 WBC (Bld) 1 % 0 - 2 % [facility] Eosinophils/100 WBC (Bld) 3 % 1 - 4 % [facility] Hematocrit (Bld) [Volume fraction] 41.8 % 36.3 - 47.1 % [facility] Hemoglobin.gastroint estinal spec 1 Ql (Stl) 14.0 g/dL 11.9 - 15.1 g/dL [facility] Immature granulocytes/100 WBC (Bld) 0 % 0 [facility] Interpretation and review of laboratory results Abnormal [facility] Lymphocytes/100 WBC (Bld) 29 % 24 - 43 % [facility] MCH (RBC) [Entitic mass] 29.2 pg 25.2 - 33.5 pg [facility] MCHC (RBC) [Mass/Vol] 33.5 g/dL 28.4 - 34.8 g/dL [facility] MCV (RBC) [Entitic vol] 87.1 fL 82.6 - 102.9 fL [facility] Monocytes/100 WBC (Bld) 5 % 3 - 12 % [facility] NRBC Automated 0.0 0.0 per 100 WBC [facility] Platelet distribution width (Bld) [Ratio] 11.5 % Low 11.8 - 14.4 % [facility] Platelet mean volume (Bld) [Entitic vol] 9.6 fL 8.1 - 13.5 fL [facility] Platelets (Bld) [#/Vol] 264 10*3/uL [facility] RBC (Bld) [#/Vol] 4.80 10*6/uL 3.95 - 5.11 m/uL [facility] Segmented neutrophils/100 WBC (Bld) 62 % 36 - 65 % [facility] Segs Absolute 5.12 [facility] [#/Vol] 8.3 10*3/uL [facility] Laboratory - Chemistry and C hemistry - challengeon 06-21-2021 GFR/1.73 sq M.predicted MDRD (S/P/Bld) [Vol rate/Area] [facility] Comment on above: Average GFR for 30-3 9 years old: 107 mL/min/1.73sq m Chronic Kidney Disease: <60 mL/min/1.73sq m Kidney failure: <15 mL/min/1.73sq m eGFR calculated using average adult body mass. Additional eGFR calculator available at: http://www.Brandizi.[employer]/multiple_crcl_2012.htm Stage 1: Some kidney damage normal GFR Stage 2: Mild kidney damage GFR 60-89 Stage 3: Moderate kidney damage GFR 30-59 Stage 4: Severe kidney damage GFR 15-29 Stage 5: Severe kidney damage GFR <15 ESRD - chronic treatment by dialysis or transplant Magnesiumon 06-21-2021 Magnesium [Mass/Vol] 1.8 mg/dL 1.6 - 2 .6 mg/dL [facility] TSHon 06-21-2021 TSH Qn 1.33 m[IU]/L [facility] Troponinon 06-21-2021 Troponin, High Sensitivity <6 0 - 14 ng/L [facility] Comment on above: High Sensitivity Troponin values cannot be compared with other Troponin methodologies. Patients with high levels of Biotin oral intake (i.e >5mg/day) may have falsely decreased Troponin levels. Samples collected within 8 hours of biotin intake may require additional information for diagnosis. [facility] XR CHEST PORTABLEon 06-22-19 No acute cardiopulmo nary disease. [facility] RIS CONSOLIDATED EXAMINATION: ONE XRAY VIEW OF THE CHEST 06/21/2021 12:52 am COMPARISON: 05/20/2021 HISTORY: ORDERING SYSTEM PROVIDED HISTORY: chest pain TECHNOLOGIST PROVIDED HISTORY: chest pain FINDINGS: Heart size and configuration are normal. Hilar and mediastinal structures are unremarkable. The lungs are clear. No pneumothorax or pleural fluid. No acute bone finding. [facility] RIS CONSOL[facility]ATED Armando Stern MD - 06/21/2021 EXAMINATION: ONE XRAY VIEW OF THE CHEST 06/21/2021 12:52 am COMPARISON: 05/20/2021 HISTORY: ORDERING SYSTEM PROVIDED HISTORY: chest pain TECHNOLOGIST PROVIDED HISTORY: chest pain FINDINGS: Heart size and configuration are normal. Hilar and mediastinal structures are unremarkable. The lungs are clear. No pneumothorax or pleural fluid. No acute bone finding. IMPRESSION: No acute cardiopulmonary disease. [facility] Work Phone: Radiology Study observation (narrative) [facility] Work Phone: XR CHEST PORTABLEOrdered By: Armando Stern on 06-21-2021 [facility] Work Phone: [facility]ALTHon 06-16-2021 [facility] HNO ID: [id number] Author: RT Geovanna(R) Service: ? Author Type: [...] DATE: June 16, 2021 TIME: 11:05 AM [facility] MRI BRAIN WO/W IVCONon 06-16 MRI BRAIN WO/W IVCON * * *Final Report* * * DATE OF EXAM: Jun 16 2021 11:27AM [facility] 0295 - MRI BRAIN WO/W IVCON [...] of the brain with and without contrast. Performance Instructor: PSCB Transcribe Date/Time: Jun 16 2021 11:31A Dictated by : ANNA BOLAND MD This examination was interpreted and the report reviewed and electronically signed by: ANNA BOLAND MD on Jun 16 2021 11:53AM EST [id number] Normal [facility] ACTH Don 06-14-2021 Corticotropin (P) [Mass/Vol] 11.6 pg/mL 7.2 - 63.3 pg/mL [facility] Basic Metabolic Panel w/ Ref douglas to [facility] 05-20-2021 Anion gap [Moles/Vol] 11 mmol/L 9 - 17 mmol/L [facility] Calcium [Mass/Vol] 9.1 mg/dL 8.6 - 10. 4 mg/dL [employer] Chloride [Moles/Vol] 103 mmol/L 98 - 10 7 mmol/L [facility] CO2 [Moles/Vol] 23 mmol/L 20 - 31 mmol/L [facility] Creatinine [Mass/Vol] 0.74 mg/dL 0.50 - 0.90 mg/dL [facility] GFR >60 >60 mL/min [facility] GFR Non- >60 >60 mL/min [facility] Glucose [Mass/Vol] 101 mg/dL High 70 - 99 mg/dL [facility] Interpretation and review of laboratory results Abnormal [employer] Potassium [Moles/Vol] 3.7 mmol/L 3.7 - 5.3 mmol/L [facility] Sodium [Moles/Vol] 137 mmol/L 135 - 144 mmol/L [employer] Urea nitrogen (BldV) [Mass/Vol] 9 mg/dL 6 - 20 mg/dL [facility] Urea nitrogen/Creatinine (Bld) [Mass ratio] 12 [facility] Brain Natriuretic Peptideon 05-20-2021 Natriuretic peptide B (Bld) [Mass/Vol] 173 pg/mL <300 [facility] Comment on above: An age-independent cutoff point of 300 pg/ml has a 98% negative predictive value excluding acute heart failure. C-Reactive Proteinon 022 CRP [Mass/Vol] mg/L 0.0 - 5.0 mg/L [facility] CBC with Auto Differentialon 05-20-2021 Absolute Eos # 0.18 [facility] th Absolute Immature Granulocyte 0.03 [facility] Absolute Lymph # 1.[address] [facility] alth Absolute [place] # 0.29 [facility] lt Basophils (Bld) [#/Vol] 0.03 10*3/uL [facility] Basophils/100 WBC (Bld) 0 % 0 - 2 % [facility] Eosinophils/100 WBC (Bld) 3 % 1 - 4 % [facility] Hematocrit (Bld) [Volume fraction] 43.8 % 36.3 - 47.1 % [facility] Hemoglobin.gastroint estinal spec 1 Ql (Stl) 14.6 g/dL 11.9 - 15.1 g/dL [facility] Immature granulocytes/100 WBC (Bld) 0 % 0 [facility] Interpretation and review of laboratory results Abnormal [facility] Lymphocytes/100 WBC (Bld) 25 % 24 - 43 % [facility] MCH (RBC) [Entitic mass] 29.0 pg 25.2 - 33.5 pg [facility] MCHC (RBC) [Mass/Vol] 33.3 g/dL 28.4 - 34.8 g/dL [facility] MCV (RBC) [Entitic vol] 86.9 fL 82.6 - 102.9 fL [facility] Monocytes/100 WBC (Bld) 4 % 3 - 12 % [facility] NRBC Automated 0.0 0.0 per 100 WBC [facility] Platelet distribution width (Bld) [Ratio] 11.5 % Low 11.8 - 14.4 % [facility] Platelet mean volume (Bld) [Entitic vol] 9.5 fL 8.1 - 13.5 fL [facility] Platelets (Bld) [#/Vol] 242 10*3/uL [facility] RBC (Bld) [#/Vol] 5.04 10*6/uL 3.95 - 5.11 m/uL [facility] Segmented neutrophils/100 WBC (Bld) 68 % High 36 - 65 % [facility] Segs Absolute 4.67 [facility] WBC (Bld) [#/Vol] 7.0 10*3/uL [facility] CT ABDOMEN PELVIS WO CONTRAS T Additional Contrast? Noneon 05-20-2021 1. No acute abdomina l or pelvic findings. 2. There is diastasis of the rectus abdominus fascia in the midline lower abdomen measuring up to 3 cm. A loop of colon is seen to protrude into the small defect without evidence of incarceration. 3. Hepatic steatosis [facility] RIS CONSOLIDATED EXAMINATION: CT OF THE ABDOMEN [...] incarceration or obstruction. No suspicious osseous lesions. [facility] RIS [facility] Jesus Unger P - 05/20/2021 [...] without evidence of incarceration. 3. Hepatic steatosis [employer] Phone: Radiology Study observation (narrative) [employer] Phone: CT ABDOMEN PELVIS WO CONTRAS T Additional Contrast? NoneOrdered By: Jesus Unger on 05-20-2021 [employer] Phone: D-Dimer, Quantitativeon 05-06 [employer], Quant 0.34 [facility] Comment on above: When combined with a [...] more prevalent in patients with distal DVT. [facility] Drug screen multi urineon Amphetamine Screen, Ur Negative NEGATIVE [facility] Barbiturate Screen, Ur Negative NEGATIVE [facility] Benzodiazepine Screen, Urine Negative NEGATIVE [facility] Buprenorphine Urine Negative NEGATIVE [facility] Cannabinoid Scrn, Ur Negative NEGATIVE [employer] Cocaine Metabolite, Urine Negative NEGATIVE [facility] Methadone Screen, Urine Negative NEGATIVE [facility] Methamphetamine, Urine Negative NEGATIVE [facility] Opiates, Urine Negative NEGATIVE [employer] th Oxycodone Screen, Ur Negative NEGATIVE [employer] Phencyclidine, Urine Negative NEGATIVE [employer] Propoxyphene, Urine Negative NEGATIVE [facility] Tricyclic Antidepressants, Urine Negative NEGATIVE [facility] Comment on above: Drug screen results are to be used for medical purposes only. All positive results are unconfirmed. Testing for employment or legal uses should be sent to a reference laboratory for confirmation. [facility] EKG 12 LeadOrdered By: Gosia quinn on 05-20-2021 Atrial Rate 51 BPM [facility] Work Phone: P [place] 56 degrees [facility] Work Phone: P-R Interval 152 ms [facility] Work Phone: Q-T Interval 448 ms [facility] Work Phone: QRS Duration 90 ms [facility] Work Phone: QTc Calculation (Bazett) 412 ms [facility] Work Phone: R [place] 79 degrees [facility] Work Phone: T [place] 62 degrees [facility] Work Phone: Ventricular Rate 51 BPM [employer] Work Phone: [facility] Work Phone: EKG 12 Leadon 05-20-2021 Sinus bradycardia wi th sinus arrhythmia T wave abnormality, consider anterior ischemia Abnormal ECG When compared with ECG of 16-APR-2021 20:11, No significant change was found Confirmed by Gosia Rangel MD ([id number]) on 05/20/2021 6:51:52 PM [facility] RADIOLOGY Gsoia Rangel MD - 05/20/2021 Sinus bradycardia with sinus arrhythmia T wave abnormality, consider anterior ischemia Abnormal ECG When compared with ECG of 16-APR-2021 20:11, No significant change was found Confirmed by Gosia Rangel MD ([id number]) on 05/20/2021 6:51:52 PM [facility] Work Phone: Laboratory - Chemistry and C hemistry - challengeon 05-20-2021 GFR/1.73 sq M.predicted MDRD (S/P/Bld) [Vol rate/Area] [facility] Comment on above: Average GFR for 30-3 9 years old: 107 mL/min/1.73sq m Chronic Kidney Disease: <60 mL/min/1.73sq m Kidney failure: <15 mL/min/1.73sq m eGFR calculated using average adult body mass. Additional eGFR calculator available at: http://www.Brandizi.[employer]/multiple_crcl_2012.htm Stage 1: Some kidney damage normal GFR Stage 2: Mild kidney damage GFR 60-89 Stage 3: Moderate kidney damage GFR 30-59 Stage 4: Severe kidney damage GFR 15-29 Stage 5: Severe kidney damage GFR <15 ESRD - chronic treatment by dialysis or transplant Lactic Acidon 05-20-2021 Lactate [Moles/Vol] 0.9 mmol/L 0.5 - 2. 2 mmol/L [facility] Lipaseon 05-20-2021 Lipase [Catalytic activity/Vol] 46 U/L 13 - 60 U/L [facility] Microscopic Urinalysison - [facility] Bacteria, UA TRACE Abnormal None [facility] Epithelial Cells UA 0 TO 2 [facility] Interpretation and review of laboratory results Abnormal [facility] RBC, UA None [facility] WBC, UA None [facility] No Panel Informationon 05-20 [facility] Sedimentation Rateon 022 Sed Rate 9 [facility] TSH with Reflexon 05-20-2021 TSH Qn 1.20 m[IU]/L [facility] Troponinon 05-20-2021 Troponin, High Sensitivity <6 0 - 14 ng/L [facility] Comment on above: High Sensitivity Troponin values cannot be compared with other Troponin methodologies. Patients with high levels of Biotin oral intake (i.e >5mg/day) may have falsely decreased Troponin levels. Samples collected within 8 hours of biotin intake may require additional information for diagnosis. [facility] Troponin, High Sensitivity <6 0 - 14 ng/L [facility] Comment on above: High Sensitivity Troponin values cannot be compared with other Troponin methodologies. Patients with high levels of Biotin oral intake (i.e >5mg/day) may have falsely decreased Troponin levels. Samples collected within 8 hours of biotin intake may require additional information for diagnosis. Urinalysis with Reflex to Cu ltureon 05-20-2021 Bilirubin Urine Negative NEGATIVE [facility] lt Color, UA Yellow Yellow [facility] Glucose, Ur Negative NEGATIVE [facility] Interpretation and review of laboratory results Abnormal [facility] Ketones Ql (U) Negative NEGATIVE [facility] Leukocyte esterase Test strip Ql (U) Negative NEGATIVE [facility] Nitrite, Urine Negative NEGATIVE [facility] pH, UA 6.0 [facility] Protein, UA Negative NEGATIVE [facility] Specific [place], UA <1.005 Low [facility] Turbidity UA Clear Clear [facility] Urine Hgb Negative NEGATIVE [facility] Urobilinogen, Urine Normal Normal [facility] XR CHEST PORTABLEon 05-21-19 22 No abnormalities not ed. [facility] RIS CONSOLIDATED EXAMINATION: ONE XRAY VIEW OF THE CHEST 05/20/2021 1:33 pm COMPARISON: 04/16/2021 HISTORY: ORDERING SYSTEM PROVIDED HISTORY: chest pain TECHNOLOGIST PROVIDED HISTORY: chest pain FINDINGS: The lungs appear clear. The heart and mediastinal structures are unremarkable. Bony thorax appears normal. Visualized upper abdomen is unremarkable. [facility] Yoel Rendon MD - 05/20/2021 EXAMINATION: ONE XRAY VIEW OF THE CHEST 05/20/2021 1:33 pm COMPARISON: 04/16/2021 HISTORY: ORDERING SYSTEM PROVIDED HISTORY: chest pain TECHNOLOGIST PROVIDED HISTORY: chest pain FINDINGS: The lungs appear clear. The heart and mediastinal structures are unremarkable. Bony thorax appears normal. Visualized upper abdomen is unremarkable. IMPRESSION: No abnormalities noted. [facility] Work Phone: Radiology Study observation (narrative) [facility] Work Phone: XR CHEST PORTABLEOrdered By: Yoel Shabazz on 05-20-2021 [facility] Work Phone: Basic Metabolic Panel w/ Ref douglas to MGon 04-16-2021 Anion gap [Moles/Vol] 11 mmol/L 9 - 17 mmol/L [facility] Calcium [Mass/Vol] 9.8 mg/dL 8.6 - 10. 4 mg/dL [facility] Chloride [Moles/Vol] 99 mmol/L 98 - 10 7 mmol/L [facility] CO2 [Moles/Vol] 24 mmol/L 20 - 31 mmol/L [facility] Creatinine [Mass/Vol] 0.85 mg/dL 0.50 - 0.90 mg/dL [facility] GFR >60 >60 mL/min [employer] GFR Non- >60 >60 mL/min [facility] Glucose [Mass/Vol] 97 mg/dL 70 - 99 mg/dL [facility] Interpretation and review of laboratory results Abnormal [facility] Potassium [Moles/Vol] 3.8 mmol/L 3.7 - 5.3 mmol/L [facility] Sodium [Moles/Vol] 134 mmol/L Low 135 - 144 mmol/L [facility] Urea nitrogen (BldV) [Mass/Vol] 9 mg/dL 6 - 20 mg/dL [facility] Urea nitrogen/Creatinine (Bld) [Mass ratio] 11 [facility] C-Reactive Proteinon 022 CRP [Mass/Vol] mg/L 0.0 - 5.0 mg/L [facility] CBC with Auto Differentialon 04-16-2021 Absolute Eos # 0.19 [facility] th Absolute Immature Granulocyte 0.03 [facility] Absolute Lymph # 2.[address] [facility] alth Absolute [place] # 0.[address] [facility] Basophils (Bld) [#/Vol] 0.05 10*3/uL [facility] Basophils/100 WBC (Bld) 1 % 0 - 2 % [facility] Eosinophils/100 WBC (Bld) 2 % 1 - 4 % [facility] Hematocrit (Bld) [Volume fraction] 44.1 % 36.3 - 47.1 % [facility] Hemoglobin.gastroint estinal spec 1 Ql (Stl) 14.9 g/dL 11.9 - 15.1 g/dL [facility] Immature granulocytes/100 WBC (Bld) 0 % 0 [facility] Interpretation and review of laboratory results Abnormal [facility] Lymphocytes/100 WBC (Bld) 22 % Low 24 - 43 % [facility] MCH (RBC) [Entitic mass] 29.2 pg 25.2 - 33.5 pg [facility] MCHC (RBC) [Mass/Vol] 33.8 g/dL 28.4 - 34.8 g/dL [facility] MCV (RBC) [Entitic vol] 86.5 fL 82.6 - 102.9 fL [facility] Monocytes/100 WBC (Bld) 5 % 3 - 12 % [facility] NRBC Automated 0.0 0.0 per 100 WBC [facility] Platelet distribution width (Bld) [Ratio] 11.4 % Low 11.8 - 14.4 % [facility] Platelet mean volume (Bld) [Entitic vol] 9.5 fL 8.1 - 13.5 fL [facility] Platelets (Bld) [#/Vol] 265 10*3/uL [facility] RBC (Bld) [#/Vol] 5.10 10*6/uL 3.95 - 5.11 m/uL [facility] Segmented neutrophils/100 WBC (Bld) 70 % High 36 - 65 % [facility] Segs Absolute 6.34 [facility] WBC (Bld) [#/Vol] 9.1 10*3/uL [facility] CT ABDOMEN PELVIS WO CONTRAS T Additional [...] lumbosacral facets and at the sacroiliac joints. [facility] RIS CONSOLIDATED Michael Frausto - 04/16 EXAMINATION: CT OF THE [...] the liver. Previous cholecystectomy without biliary dilatation. [employer] Phone: Radiology Study observation (narrative) [employer] Phone: CT ABDOMEN PELVIS WO CONTRAS T Additional Contrast? NoneOrdered By: Michael Frausto on 04-16-2021 [employer] Phone: D-Dimer, Quantitativeon 04-05 [employer], Quant 0.37 [facility] Comment on above: When combined with [...] more prevalent in patients with distal DVT. [facility] Hepatic Function Panelon Albumin [Mass/Vol] 4.7 g/dL 3.5 - 5.2 g/dL [facility] Albumin/Globulin [Mass ratio] 1.8 {ratio} [facility] ALP (Bld) [Catalytic activity/Vol] 73 U/L 35 - 104 U/L [facility] ALT [Catalytic activity/Vol] 24 U/L 5 - 33 U/L [facility] AST [Catalytic activity/Vol] 14 U/L <32 [facility] Bilirubin [Mass/Vol] 0.35 mg/dL 0.3 - 1 .2 mg/dL [facility] Bilirubin, Indirect Can not be calculated 0.00 - 1.00 mg/dL [facility] Bilirubin.indirect [Mass/Vol] mg/dL <0.31 mg/dL [facility] Free PSA/Total PSA [Mass fraction] 7.3 g/dL 6.4 - 8.3 g/dL [facility] Laboratory - Chemistry and C hemistry - challengeon 04-16-2021 GFR/1.73 sq M.predicted MDRD (S/P/Bld) [Vol rate/Area] [facility] Comment on above: Average GFR for 30-3 9 years old: 107 mL/min/1.73sq m Chronic Kidney Disease: <60 mL/min/1.73sq m Kidney failure: <15 mL/min/1.73sq m eGFR calculated using average adult body mass. Additional eGFR calculator available at: http://www.[employer]/multiple_crcl_2011.htm Stage 1: Some kidney damage normal GFR Stage 2: Mild kidney damage GFR 60-89 Stage 3: Moderate kidney damage GFR 30-59 Stage 4: Severe kidney damage GFR 15-29 Stage 5: Severe kidney damage GFR <15 ESRD - chronic treatment by dialysis or transplant Lipaseon 04-16-2021 Lipase [Catalytic activity/Vol] 29 U/L 13 - 60 U/L [facility] Microscopic Urinalysison - [facility] Bacteria, UA 2+ Abnormal None [facility] Epithelial Cells UA 2 TO 5 [facility] Interpretation and review of laboratory results Abnormal [facility] RBC, UA 0 TO 2 [facility] WBC, UA 2 TO 5 [facility] No Panel Informationon 04-16 [facility] , Urineon 2 Beta HCG ( test) Ql (U) Negative NEGATIVE [facility] Comment on above: Specimens with hCG l evels near the threshold of the test (25 mIU/mL) may give a negative or indeterminate result. In such cases, another test should be performed with a new specimen in 48-72 hours. If early is suspected clinically in this setting, correlation with quantitative serum b-hCG level is suggested. [employer] has confirmed the use of plasma for this test. This has not been cleared or approved by the U.S. Food and Drug Administration. The FDA has determined that such clearance is not necessary. [facility] Sedimentation Rateon 022 Sed Rate 13 mm 0 - 20 mm [facility] Troponinon 04-16-2021 Troponin, High Sensitivity <6 0 - 14 ng/L [facility] Comment on above: High Sensitivity Troponin values cannot be compared with other Troponin methodologies. Patients with high levels of Biotin oral intake (i.e >5mg/day) may have falsely decreased Troponin levels. Samples collected within 8 hours of biotin intake may require additional information for diagnosis. [facility] Urinalysis with Reflex to Cu ltureon 04-16-2021 Bilirubin Urine Negative NEGATIVE [facility] Color, UA Yellow Yellow [facility] Glucose, Ur Negative NEGATIVE [facility] Interpretation and review of laboratory results Abnormal [facility] Ketones Ql (U) Negative NEGATIVE [facility] Leukocyte esterase Test strip Ql (U) TRACE Abnormal NEGATIVE [facility] Nitrite, Urine Negative NEGATIVE [facility] pH, UA 6.0 [facility] Protein, UA Negative NEGATIVE [facility] Specific [place], UA 1.015 [facility] Turbidity UA Clear Clear [facility] Urine Hgb Negative NEGATIVE [facility] Urobilinogen, Urine Normal Normal [facility] XR CHEST 1 VIEWon 04-16-2021 Clear lungs. [...] IMPRESSION: Clear lungs. No acute cardiopulmonary abnormality. [employer] Phone: Radiology Study observation (narrative) [employer] Phone: XR CHEST 1 VIEWOrdered By: Arsenio Becerra on 04-16-2021 [employer] Phone: PULMONARY FUNCTION (450)on 0 03-07-2021 PULMONARY FUNCTION (450) [place] [address] PULMONARY FUNCTION PATIENT NAME: LEANA TRAN : 1985 MED REC NO: [id number] ROOM: ACCOUNT NO: [id number] ADMIT DATE: 03/07/2021 PROVIDER: Moris Alvarado DATE [...] 79% of predicted. MORIS ALVARADO [id number] Doc#: [id number] CC: Normal [facility] [id number] 03-07-2021 SARS-CoV-2 (COVID-19) RNA CHRISTI+probe Ql (Unsp spec) Not detected Normal [facility] Comment on above: Result Comment: Rapid NAAT: [...] management decisions. Fact sheet for Healthcare Providers: https://www.fda.gov/media/124789/download Fact sheet for Patients: https://www.fda.gov/media/987173/download Methodology: Isothermal Nucleic Acid Amplification Performed By: #### C OVRB #### [facility] [address] [place] [address] Heating Engineer: Belén Dale MD Basic Metabolic Panel w/ Ref douglas to MGOrdered By: Araseli Barrett on 11-01-2020 Anion gap [Moles/Vol] 19 mmol/L High 9 - 17 mmol/L [facility] Work Phone: Calcium [Mass/Vol] 9.4 mg/dL 8.6 - 10. 4 mg/dL [employer] Phone: Chloride [Moles/Vol] 94 mmol/L Low 98 - 10 7 mmol/L [employer] Phone: CO2 [Moles/Vol] 20 mmol/L 20 - 31 mmol/L [facility] Work Phone: Creatinine [Mass/Vol] 1.2 mg/dL High 0.50 - 0.90 mg/dL [facility] Work Phone: GFR >60 >60 mL/min [employer] Phone: GFR Non- 51 mL/min Low >60 [employer] Phone: Glucose [Mass/Vol] 217 mg/dL High 70 - 99 mg/dL [employer] Phone: Interpretation and review of laboratory results Abnormal [employer] Phone: Potassium [Moles/Vol] 3.5 mmol/L Low 3.7 - 5.3 mmol/L [employer] Phone: Sodium [Moles/Vol] 133 mmol/L Low 135 - 144 mmol/L [employer] Phone: Urea nitrogen (BldV) [Mass/Vol] 10 mg/dL 6 - 20 mg/dL [facility] Work Phone: Urea nitrogen/Creatinine (Bld) [Mass ratio] 8 Low [facility] Work Phone: [facility] Work Phone: CBC Auto DifferentialOrdered By: Araseli Barrett on 11-01-2020 Absolute Eos # <0.03 [facility] Work Phone: Absolute Immature Granulocyte 0.33 High [facility] Work Phone: Absolute Lymph # 0.80 Low [facility] Work Phone: Absolute [place] # 0.42 [facility] Work Phone: Basophils (Bld) [#/Vol] 10*3/uL [facility] Work Phone: Basophils/100 WBC (Bld) 0 % 0 - 2 % [employer] Phone: Differential Type NOT REPORTED [employer] Phone: Eosinophils/100 WBC (Bld) 0 % Low 1 - 4 % [facility] Work Phone: Hematocrit (Bld) [Volume fraction] 42.8 % 36.3 - 47.1 % [facility] Work Phone: Hemoglobin.gastroint estinal spec 1 Ql (Stl) 14.7 g/dL 11.9 - 15.1 g/dL [employer] Phone: Immature granulocytes/100 WBC (Bld) 4 % High 0 [facility] Work Phone: Interpretation and review of laboratory results Abnormal [employer] Phone: Lymphocytes/100 WBC (Bld) 9 % Low 24 - 43 % [facility] Work Phone: MCH (RBC) [Entitic mass] 30.1 pg 25.2 - 33.5 pg [employer] Phone: MCHC (RBC) [Mass/Vol] 34.3 g/dL 28.4 - 34.8 g/dL [employer] Phone: MCV (RBC) [Entitic vol] 87.5 fL 82.6 - 102.9 fL [employer] Phone: Monocytes/100 WBC (Bld) 5 % 3 - 12 % [facility] Work Phone: NRBC Automated 0.0 0.0 per 100 WBC [employer] Phone: Platelet distribution width (Bld) [Ratio] 11.4 % Low 11.8 - 14.4 % [employer] Phone: Platelet Estimate NOT REPORTED [facility] [employer] Phone: Platelet mean volume (Bld) [Entitic vol] 9.4 fL 8.1 - 13.5 fL [employer] Phone: Platelets (Bld) [#/Vol] 207 10*3/uL [employer] Phone: RBC (Bld) [#/Vol] 4.89 10*6/uL 3.95 - 5.11 m/uL [employer] Phone: RBC (Bld) [#/Vol] NOT REPORTED [employer] Phone: Segmented neutrophils/100 WBC (Bld) 82 % High 36 - 65 % [employer] Phone: Segs Absolute 7.82 [employer] Work Phone: WBC (Bld) [#/Vol] 9.4 10*3/uL [employer] Phone: WBC (Bld) [#/Vol] NOT REPORTED [employer] Phone: [employer] Phone: D-Dimer, QuantitativeOrdered By: Araseli Barrett on 11-01-2020 D-Dimer, Quant <0.27 [employer] Work Phone: Comment on above: When combined [...] more prevalent in patients with distal DVT. [employer] Phone: Laboratory - Chemistry and C hemistry - challengeOrdered By: Araseli Barrett on 11-01-2020 GFR/1.73 sq M.predicted MDRD (S/P/Bld) [Vol rate/Area] [employer] Phone: Comment on above: Average GFR for 30-3 9 years old: 107 mL/min/1.73sq m Chronic Kidney Disease: <60 mL/min/1.73sq m Kidney failure: <15 mL/min/1.73sq m eGFR calculated using average adult body mass. Additional eGFR calculator available at: http://www.[place]/multiple_crcl_2012.htm Stage 1: Some kidney damage normal GFR Stage 2: Mild kidney damage GFR 60-89 Stage 3: Moderate kidney damage GFR 30-59 Stage 4: Severe kidney damage GFR 15-29 Stage 5: Severe kidney damage GFR <15 ESRD - chronic treatment by dialysis or transplant MagnesiumOrdered By: Araseli Barrett on 11-01-2020 Magnesium [Mass/Vol] 1.6 mg/dL 1.6 - 2 .6 mg/dL [employer] Phone: [employer] Phone: TroponinOrdered By: Araseli Barrett on 11-01-2020 Troponin Interp NOT REPORTED [employer] Work Phone: Troponin T NOT REPORTED <0.03 ng/mL [employer] Phone: Troponin, High Sensitivity <6 0 - 14 ng/L [employer] Phone: Comment on above: High Sensitivity Troponin values cannot be compared with other Troponin methodologies. Patients with high levels of Biotin oral intake (i.e >5mg/day) may have falsely decreased Troponin levels. Samples collected within 8 hours of biotin intake may require additional information for diagnosis. [employer] Phone: XR CHEST PORTABLEOrdered By: Araseli Barrett on 11-01-2020 Negative chest. [employer] [facility] Work Phone: EXAMINATION: ONE XRA Y VIEW OF THE CHEST 11/01/2020 2:31 pm COMPARISON: 12/08/2014 HISTORY: ORDERING SYSTEM PROVIDED HISTORY: cough FINDINGS: The lungs are without acute focal process. No effusion or pneumothorax. The cardiomediastinal silhouette is normal. The osseous structures are intact without acute process. [employer] Phone: Oswaldo, Mhpn Incoming R adiant Results From Currently/[employer] - 11/01/2020 2:41 PM EDT EXAMINATION: ONE XRAY VIEW OF THE CHEST 11/01/2020 2:31 pm COMPARISON: 12/08/2014 HISTORY: ORDERING SYSTEM PROVIDED HISTORY: cough FINDINGS: The lungs are without acute focal process. No effusion or pneumothorax. The cardiomediastinal silhouette is normal. The osseous structures are intact without acute process. IMPRESSION: Negative chest. [employer] Phone: [employer] Phone: [facility] 09-15-2020 [facility] Telephone ([facility]) LEANA TRAN ([id number]) 1985 F Date Time Provider Department 09/15/20 LIS MORAES During your visit today, we recorded the following information about you: Demi Hazel Pss 09/15/2020 4:44 PM Signed Received MRI Brain report by fax from [facility]. Scanned to patient's chart. Savanna Juarez [...] Encounter Status:Closed by [facility] LEANA TRAN ([id number]) 1985 F Date Time Provider Department 09/06/20 2:00 PM LIS MORAES During your visit today, we recorded the following information about you: Temperature Pulse Blood pressure Weight 97.8 degrees 67/minute 112/73 102.1 kg Height 1.626 m Lis Moraes MD 09/06/2020 3:10 PM Signed PROGRESS NOTE- HEADACHE SERVICE DATE: September 06, 2020 Location: [facility] Participants: patient and provider Requesting [...] Contrast [Con (more content not included)... Normal [facility] Vital Signs Date Time Vital Sign Value Performing Clinician Facility 05-08-2023 08:47-0400 Body mass index (BMI) [Ratio] 36.9 kg/m2 Sarah Best MERCHANDISE PICKUP/RECEIVING ASSOCIATE-MANAGED SERVICES CONSULTANT Work Phone: [facility] 05-08-2023 08:47-0400 Body weight 97.52 kg Sarah Best MERCHANDISE PICKUP/RECEIVING ASSOCIATE-MANAGED SERVICES CONSULTANT Work Phone: [facility] 05-08-2023 08:47-0400 Diastolic blood pressure 87 mm[Hg] Sarah Best MERCHANDISE PICKUP/RECEIVING ASSOCIATE-MANAGED SERVICES CONSULTANT Work Phone: [facility] 05-08-2023 08:47-0400 Heart rate 63 /min Sarah Best MERCHANDISE PICKUP/RECEIVING ASSOCIATE-MANAGED SERVICES CONSULTANT Work Phone: [facility] 05-08-2023 08:47-0400 Systolic blood pressure 134 mm[Hg] Sarah Best MERCHANDISE PICKUP/RECEIVING ASSOCIATE-MANAGED SERVICES CONSULTANT Work Phone: [facility] 10-02-2022 09:29-0400 Body height 162.6 cm Fuentes Amaral MD Work Phone: [facility] 10-02-2022 09:29-0400 Body temperature 97.7 [degF] Fuentes Amaral MD Work Phone: [facility] 10-02-2022 09:29-0400 Body weight 100.15 kg Fuentes Amaral MD Work Phone: [facility] 10-02-2022 09:29-0400 Diastolic blood pressure 79 mm[Hg] Fuentes Amaral MD Work Phone: [facility] 10-02-2022 09:29-0400 Heart rate 58 /min Fuentes Amaral MD Work Phone: [facility] 10-02-2022 09:29-0400 Respiratory rate 16 /min Fuentes Amaral MD Work Phone: [facility] 10-02-2022 09:29-0400 SaO2% (BldA) [Mass fraction] 99 % Fuentes Amaral MD Work Phone: [facility] 10-02-2022 09:29-0400 Systolic blood pressure 140 mm[Hg] Fuentes Amaral MD Work Phone: [facility] 09-05-2022 08:23-0400 Blood Pressure Location LORAINEJEANETTE RUBALCAVA [facility] 09-05-2022 08:23-0400 Diastolic blood pressure 79 mm[Hg] LORAINE TEJ [facility] 09-05-2022 08:23-0400 Heart rate 60 /min LORAINE RUBALCAVA [facility] 09-05-2022 08:23-0400 Systolic blood pressure 133 mm[Hg] LORAINEJEANETTE RUBALCAVA [facility] 04-03-2022 10:39-0500 Body height 162.6 cm Fuentes Amaral MD Work Phone: [facility] 04-03-2022 10:39-0500 Body temperature 97.9 [degF] Fuentes Amaral MD Work Phone: [facility] 04-03-2022 10:39-0500 Body weight 99.34 kg Fuentes Amaral MD Work Phone: [facility] 04-03-2022 10:39-0500 Diastolic blood pressure 65 mm[Hg] Fuentes Amaral MD Work Phone: [facility] 04-03-2022 10:39-0500 Heart rate 74 /min Fuentes Amaral MD Work Phone: [facility] 04-03-2022 10:39-0500 Respiratory rate 16 /min Fuentes Amaral MD Work Phone: [facility] 04-03-2022 10:39-0500 SaO2% (BldA) [Mass fraction] 98 % Fuentes Amaral MD Work Phone: [facility] 04-03-2022 10:39-0500 Systolic blood pressure 147 mm[Hg] Fuentes Amaral MD Work Phone: [facility] 02-28-2022 08:30-0500 Blood Pressure Location LORAINE TEJ [facility] 02-28-2022 08:30-0500 Diastolic blood pressure 83 mm[Hg] LORAINE TEJ [facility] 02-28-2022 08:30-0500 Heart rate 74 /min LORAINE TEJ [facility] 02-28-2022 08:30-0500 Respiratory rate 16 /min LORAINE TEJ [facility] 02-28-2022 08:30-0500 Systolic blood pressure 121 mm[Hg] LORAINE TEJ [facility] 02-10-2022 14:07-0500 Body height 162.6 cm Fuentes Amaral MD Work Phone: [facility] 02-10-2022 14:07-0500 Body temperature 97.9 [degF] Fuentes Amaral MD Work Phone: [facility] 02-10-2022 14:07-0500 Body weight 98.25 kg Fuentes Amaral MD Work Phone: [facility] 02-10-2022 14:07-0500 Diastolic blood pressure 59 mm[Hg] Fuentes Amaral MD Work Phone: [facility] 02-10-2022 14:07-0500 Heart rate 97 /min Fuentes Amaral MD Work Phone: [facility] 02-10-2022 14:07-0500 Respiratory rate 16 /min Fuentes Amaral MD Work Phone: [facility] 02-10-2022 14:07-0500 SaO2% (BldA) [Mass fraction] 99 % Fuentes Amaral MD Work Phone: [facility] 02-10-2022 14:07-0500 Systolic blood pressure 124 mm[Hg] Feuntes Amaral MD Work Phone: [facility] 2021 08:48-0500 Blood Pressure Location LORAINE RUBALCAVA [facility] 2021 08:48-0500 Diastolic blood pressure 77 mm[Hg] LORAINEJEANETTE RUBALCAVA [facility] 2021 08:48-0500 Heart rate 81 /min LORAINE TEJ [facility] 2021 08:48-0500 Systolic blood pressure 118 mm[Hg] LORAINE TEJ [facility] 11-18-2021 13:44-0400 Body height 162.6 cm Fuentes Amaral MD Work Phone: [facility] 11-18-2021 13:44-0400 Body temperature 97.81 [degF] Fuentes Amaral MD Work Phone: [facility] 11-18-2021 13:44-0400 Body weight 101.24 kg Fuentes Amaral MD Work Phone: [facility] 11-18-2021 13:44-0400 Diastolic blood pressure 73 mm[Hg] Fuentes Amaral MD Work Phone: [facility] 11-18-2021 13:44-0400 Heart rate 66 /min Fuentes Amaral MD Work Phone: [facility] 11-18-2021 13:44-0400 Respiratory rate 16 /min Fuentes Amaral MD Work Phone: [facility] 11-18-2021 13:44-0400 SaO2% (BldA) [Mass fraction] 100 % Fuentes Amaral MD Work Phone: [facility] 11-18-2021 13:44-0400 Systolic blood pressure 121 mm[Hg] Fuentes Amaral MD Work Phone: [facility] 11-03-2021 10:37-0400 Body height 162.6 cm Fuentes Amaral MD Work Phone: [facility] 11-03-2021 10:37-0400 Body temperature 97.59 [degF] Fuentes Amaral MD Work Phone: [facility] 11-03-2021 10:37-0400 Body weight 99.97 kg Fuentes Amaral MD Work Phone: [facility] 11-03-2021 10:37-0400 Diastolic blood pressure 63 mm[Hg] Fuentes Amaral MD Work Phone: [facility] 11-03-2021 10:37-0400 Heart rate 59 /min Fuentes Amaral MD Work Phone: [facility] 11-03-2021 10:37-0400 Respiratory rate 16 /min Fuentes Amaral MD Work Phone: [facility] 11-03-2021 10:37-0400 SaO2% (BldA) [Mass fraction] 99 % Fuentes Amaral MD Work Phone: [facility] 11-03-2021 10:37-0400 Systolic blood pressure 120 mm[Hg] Fuentes Amaral MD Work Phone: [facility] 09-27-2021 08:00-0400 Body height 162.6 cm [place] Work Phone: [facility] 09-27-2021 08:00-0400 Body weight 99.79 kg [place] Work Phone: [facility] 09-21-2021 15:37-0400 Body height 160 cm Ruth Villaseñor MD Work Phone: [facility] 09-21-2021 15:37-0400 Body temperature 97.5 [degF] Ruth Villaseñor MD Work Phone: [facility] 09-21-2021 15:37-0400 Body weight 100.61 kg Ruth Villaseñor MD Work Phone: [facility] 09-21-2021 15:37-0400 Diastolic blood pressure 72 mm[Hg] Ruth Villaseñor MD Work Phone: [facility] 09-21-2021 15:37-0400 Heart rate 72 /min Ruth Villaseñor MD Work Phone: [facility] 09-21-2021 15:37-0400 SaO2% (BldA) [Mass fraction] 97 % Ruth Villaseñor MD Work Phone: [facility] 09-21-2021 15:37-0400 Systolic blood pressure 131 mm[Hg] Ruth Villaseñor MD Work Phone: [facility] 09-19-2021 13:59-0400 Body temperature 98.29 [degF] Landen Clark APRN.CNP Work Phone: [facility] 09-19-2021 13:59-0400 Body weight 99.79 kg Landen Clark MERCHANDISE PICKUP/RECEIVING ASSOCIATE.MANAGED SERVICES CONSULTANT Work Phone: [facility] 09-19-2021 13:59-0400 Diastolic blood pressure 53 mm[Hg] Landen Clark MERCHANDISE PICKUP/RECEIVING ASSOCIATE.MANAGED SERVICES CONSULTANT Work Phone: [facility] 09-19-2021 13:59-0400 Heart rate 70 /min Landen Clark MERCHANDISE PICKUP/RECEIVING ASSOCIATE.MANAGED SERVICES CONSULTANT Work Phone: [facility] 09-19-2021 13:59-0400 Respiratory rate 18 /min Landen Clark MERCHANDISE PICKUP/RECEIVING ASSOCIATE.MANAGED SERVICES CONSULTANT Work Phone: [facility] 09-19-2021 13:59-0400 SaO2% (BldA) [Mass fraction] 98 % Landen Clark MERCHANDISE PICKUP/RECEIVING ASSOCIATE.MANAGED SERVICES CONSULTANT Work Phone: [facility] 09-19-2021 13:59-0400 Systolic blood pressure 128 mm[Hg] Landen Clark MERCHANDISE PICKUP/RECEIVING ASSOCIATE.MANAGED SERVICES CONSULTANT Work Phone: [facility] 09-05-2021 15:55-0400 Diastolic blood pressure 50 mm[Hg] Christine Abraham DO Work Phone: [employer] 09-05-2021 15:55-0400 Heart rate 103 /min Christine Abraham DO Work Phone: [employer] 09-05-2021 15:55-0400 Respiratory rate 28 /min Christine Abraham DO Work Phone: [employer] 09-05-2021 15:55-0400 SaO2% (BldA) [Mass fraction] 96 % Christine Abraham DO Work Phone: [employer] 09-05-2021 15:55-0400 Systolic blood pressure 115 mm[Hg] Christine Abraham DO Work Phone: [employer] 09-05-2021 13:29-0400 Body height 162.6 cm Christine Abraham DO Work Phone: [employer] 09-05-2021 13:29-0400 Body mass index (BMI) [Ratio] 37.25 kg/m2 Christine Abraham DO Work Phone: [facility] 09-05-2021 13:29-0400 Body temperature 98.2 [degF] Christine Abraham DO Work Phone: [facility] 09-05-2021 13:29-0400 Body weight 98.43 kg Christine Abraham DO Work Phone: [facility] 08-15-2021 08:54-0400 Body height 162.6 cm Berlin Aivla III, MD Work Phone: [facility] 08-15-2021 08:54-0400 Body weight 98.84 kg Berlin Avila III, MD Work Phone: [facility] 08-12-2021 10:00-0400 Body height 162.6 cm Back Tender Work Phone: [facility] 08-12-2021 10:00-0400 Body weight 98 kg Back Tender Work Phone: [facility] 08-12-2021 10:00-0400 Diastolic blood pressure 72 mm[Hg] Back Tender Work Phone: [facility] 08-12-2021 10:00-0400 Heart rate 79 /min Back Tender Work Phone: [facility] 08-12-2021 10:00-0400 Systolic blood pressure 108 mm[Hg] Back Tender Work Phone: [facility] 07-25-2021 09:30-0400 Body height 162.6 cm Cindy Rushing MD Work Phone: [facility] 07-25-2021 09:30-0400 Body temperature 97.2 [degF] Cindy Rushing MD Work Phone: [facility] 07-25-2021 09:30-0400 Body weight 97.48 kg Cindy Rushing MD Work Phone: [facility] 07-25-2021 09:30-0400 Diastolic blood pressure 62 mm[Hg] Cindy Rushing MD Work Phone: [facility] 07-25-2021 09:30-0400 Heart rate 83 /min Cindy Rushing MD Work Phone: [facility] 07-25-2021 09:30-0400 Respiratory rate 14 /min Cindy Rushing MD Work Phone: [facility] 07-25-2021 09:30-0400 SaO2% (BldA) [Mass fraction] 99 % Cindy Rushing MD Work Phone: [facility] 07-25-2021 09:30-0400 Systolic blood pressure 104 mm[Hg] Cindy Rushing MD Work Phone: [facility] 07-22-2021 14:12-0400 Body height 162.6 cm Yan Bass MD Work Phone: [facility] 07-22-2021 14:12-0400 Body temperature 97.5 [degF] Yan Bass MD Work Phone: [facility] 07-22-2021 14:12-0400 Body weight 97.98 kg Yan Bass MD Work Phone: [facility] 07-22-2021 14:12-0400 Diastolic blood pressure 79 mm[Hg] Yan Bass MD Work Phone: [facility] 07-22-2021 14:12-0400 Heart rate 71 /min Yan Bass MD Work Phone: [facility] 07-22-2021 14:12-0400 Respiratory rate 16 /min Yan Bass MD Work Phone: [facility] 07-22-2021 14:12-0400 SaO2% (BldA) [Mass fraction] 97 % Yan Bass MD Work Phone: [facility] 07-22-2021 14:12-0400 Systolic blood pressure 129 mm[Hg] Yan Bass MD Work Phone: [facility] 07-21-2021 13:36-0400 Respiratory rate 20 /min Sai Perez MD Work Phone: [facility] 07-21-2021 13:36-0400 SaO2% (BldA) [Mass fraction] 100 % Sai Perez MD Work Phone: [facility] 07-21-2021 13:29-0400 Diastolic blood pressure 67 mm[Hg] Sai Perez MD Work Phone: [facility] 07-21-2021 13:29-0400 Heart rate 62 /min Sai Perez MD Work Phone: [facility] 07-21-2021 13:29-0400 Systolic blood pressure 130 mm[Hg] Sai Perez MD Work Phone: [facility] 07-14-2021 10:40-0400 Diastolic blood pressure 75 mm[Hg] Aldo Ann MD Work Phone: [facility] 07-14-2021 10:40-0400 Heart rate 74 /min Aldo Ann MD Work Phone: [facility] 07-14-2021 10:40-0400 SaO2% (BldA) [Mass fraction] 98 % Aldo Ann MD Work Phone: [facility] 07-14-2021 10:40-0400 Systolic blood pressure 128 mm[Hg] Aldo Ann MD Work Phone: [facility] 07-06-2021 12:39-0400 Body height 162.6 cm Tracee Mcintyre MD Work Phone: [facility] 07-06-2021 12:39-0400 Body weight 97.52 kg Tracee Mcintyre MD Work Phone: [facility] 07-06-2021 12:39-0400 Diastolic blood pressure 68 mm[Hg] Tracee Mcintyre MD Work Phone: [facility] 07-06-2021 12:39-0400 Heart rate 61 /min Tracee Mcintyre MD Work Phone: [facility] 07-06-2021 12:39-0400 Respiratory rate 16 /min Tracee Mcintyre MD Work Phone: [facility] 07-06-2021 12:39-0400 SaO2% (BldA) [Mass fraction] 99 % Tracee Mcintyre MD Work Phone: [facility] 07-06-2021 12:39-0400 Systolic blood pressure 111 mm[Hg] Tracee Mcintyre MD Work Phone: [facility] 07-01-2021 10:02-0400 Body height 162.6 cm Yan Bass MD Work Phone: [facility] 07-01-2021 10:02-0400 Body temperature 97.59 [degF] Yan Bass MD Work Phone: [facility] 07-01-2021 10:02-0400 Body weight 97.98 kg Yan Bass MD Work Phone: [facility] 07-01-2021 10:02-0400 Diastolic blood pressure 97 mm[Hg] Yan Bass MD Work Phone: [facility] 07-01-2021 10:02-0400 Heart rate 87 /min Yan Bass MD Work Phone: [facility] 07-01-2021 10:02-0400 Respiratory rate 16 /min Yan Bass MD Work Phone: [facility] 07-01-2021 10:02-0400 SaO2% (BldA) [Mass fraction] 99 % Yan Bass MD Work Phone: [facility] 07-01-2021 10:02-0400 Systolic blood pressure 138 mm[Hg] Yan Bass MD Work Phone: [facility] 06-27-2021 11:45-0400 Diastolic blood pressure 70 mm[Hg] Peter Knight APRN.CNP Work Phone: [facility] 06-27-2021 11:45-0400 Heart rate 96 /min Peter Knight APRN.MANAGED SERVICES CONSULTANT Work Phone: [facility] 06-27-2021 11:45-0400 Respiratory rate 20 /min Peter Knight MERCHANDISE PICKUP/RECEIVING ASSOCIATE.MANAGED SERVICES CONSULTANT Work Phone: [facility] 06-27-2021 11:45-0400 SaO2% (BldA) [Mass fraction] 99 % Peter Knight MERCHANDISE PICKUP/RECEIVING ASSOCIATE.MANAGED SERVICES CONSULTANT Work Phone: [facility] 06-27-2021 11:45-0400 Systolic blood pressure 147 mm[Hg] Peter Knight MERCHANDISE PICKUP/RECEIVING ASSOCIATE.MANAGED SERVICES CONSULTANT Work Phone: [facility] 06-27-2021 11:30-0400 Body temperature 98.1 [degF] Pteer Knight APRN.MANAGED SERVICES CONSULTANT Work Phone: [facility] 06-27-2021 10:53-0400 Body height 162.6 cm Peter Knight APRN.MANAGED SERVICES CONSULTANT Work Phone: [facility] 06-27-2021 10:53-0400 Body weight 95.71 kg Peter Knight APRN.MANAGED SERVICES CONSULTANT Work Phone: [facility] 06-21-2021 01:00-0400 Diastolic blood pressure 84 mm[Hg] Sean Andes DO Work Phone: [facility] 06-21-2021 01:00-0400 Heart rate 87 /min Sean Andes DO Work Phone: [facility] 06-21-2021 01:00-0400 Respiratory rate 21 /min Sean Andes DO Work Phone: [facility] [employer] 06-21-2021 01:00-0400 SaO2% (BldA) [Mass fraction] 90 % Sean Andes DO Work Phone: [facility] [employer] 06-21-2021 01:00-0400 Systolic blood pressure 121 mm[Hg] Sean Andes DO Work Phone: [facility] 06-21-2021 00:04-0400 Body temperature 98.6 [degF] Sean Moses DO Work Phone: [facility] 06-14-2021 09:07-0400 Body height 162.6 cm Jackelyn Marques MD Work Phone: [facility] 06-14-2021 09:07-0400 Body weight 96.66 kg Jackelyn Marques MD Work Phone: [facility] 06-14-2021 09:07-0400 Diastolic blood pressure 80 mm[Hg] Jackelyn Marques MD Work Phone: [facility] 06-14-2021 09:07-0400 Heart rate 71 /min Jackelyn Marques MD Work Phone: [facility] 06-14-2021 09:07-0400 Systolic blood pressure 126 mm[Hg] Jackelyn Marques MD Work Phone: [facility] 06-10-2021 09:45-0400 Body height 162.6 cm Yan Bass MD Work Phone: [facility] 06-10-2021 09:45-0400 Body temperature 97.39 [degF] Yan Bass MD Work Phone: [facility] 06-10-2021 09:45-0400 Body weight 97.61 kg Yan Bass MD Work Phone: [facility] 06-10-2021 09:45-0400 Diastolic blood pressure 50 mm[Hg] Yan Bass MD Work Phone: [facility] 06-10-2021 09:45-0400 Heart rate 64 /min Yan Bass MD Work Phone: [facility] 06-10-2021 09:45-0400 Respiratory rate 16 /min Yan Bass MD Work Phone: [facility] 06-10-2021 09:45-0400 SaO2% (BldA) [Mass fraction] 100 % Yan Bass MD Work Phone: [facility] 06-10-2021 09:45-0400 Systolic blood pressure 124 mm[Hg] Yan Bass MD Work Phone: [facility] 06-04-2021 19:43-0400 Diastolic blood pressure 49 mm[Hg] Brian Santana MD Work Phone: [facility] 06-04-2021 19:43-0400 Heart rate 69 /min Brian Santana MD Work Phone: [facility] 06-04-2021 19:43-0400 Respiratory rate 23 /min Brian Santana MD Work Phone: [facility] 06-04-2021 19:43-0400 SaO2% (BldA) [Mass fraction] 92 % Brian Santana MD Work Phone: [facility] 06-04-2021 19:43-0400 Systolic blood pressure 106 mm[Hg] Brian Santana MD Work Phone: [facility] 06-04-2021 16:26-0400 Body mass index (BMI) [Ratio] 36.22 kg/m2 Brian Santana MD Work Phone: [facility] 06-04-2021 16:26-0400 Body temperature 98.4 [degF] Brian Santana MD Work Phone: [facility] 06-04-2021 16:26-0400 Body weight 95.71 kg Brian Santana MD Work Phone: [facility] 05-20-2021 18:43-0400 Diastolic blood pressure 51 mm[Hg] Cas Dowell MD Work Phone: [facility] 05-20-2021 18:43-0400 Heart rate 53 /min Cas Dowell MD Work Phone: [facility] 05-20-2021 18:43-0400 Respiratory rate 16 /min Cas Dowell MD Work Phone: [facility] 05-20-2021 18:43-0400 SaO2% (BldA) [Mass fraction] 96 % Cas Dowell MD Work Phone: [facility] 05-20-2021 18:43-0400 Systolic blood pressure 112 mm[Hg] Cas Dowell MD Work Phone: [facility] 05-20-2021 12:55-0400 Body height 162.6 cm Cas Dowell MD Work Phone: [facility] 05-20-2021 12:55-0400 Body mass index (BMI) [Ratio] 36.22 kg/m2 Cas Dowell MD Work Phone: [facility] 05-20-2021 12:55-0400 Body weight 95.71 kg Cas Dowell MD Work Phone: [facility] 04-16-2021 19:39-0500 Body temperature 97.39 [degF] Mike Stevenson MD [facility] 04-16-2021 19:39-0500 Diastolic blood pressure 89 mm[Hg] Mike Stevenson MD [facility] 04-16-2021 19:39-0500 Heart rate 55 /min Mike Stevenson MD [facility] 04-16-2021 19:39-0500 Respiratory rate 15 /min Mike Stevenson MD [facility] 04-16-2021 19:39-0500 SaO2% (BldA) [Mass fraction] 98 % Mike Stevenson MD [facility] 04-16-2021 19:39-0500 Systolic blood pressure 131 mm[Hg] Mike Stevenson MD [facility] 11-01-2020 17:24-0400 SaO2% (BldA) [Mass fraction] 94 % Araseli Barrett MD Work Phone: [facility] Work Phone: 11-01-2020 16:20-0400 Diastolic blood pressure 73 mm[Hg] Araseli Barrett MD Work Phone: [facility] Work Phone: 11-01-2020 16:20-0400 Systolic blood pressure 142 mm[Hg] Araseli Barrett MD Work Phone: [facility] Work Phone: 11-01-2020 15:48-0400 Body temperature 101.61 [degF] Araseli Barrett MD Work Phone: [facility] Work Phone: 11-01-2020 13:32-0400 Body mass index (BMI) [Ratio] 37.76 kg/m2 Araseli Barrett MD Work Phone: [facility] Work Phone: 11-01-2020 13:32-0400 Body weight 99.79 kg Araseli Barrett MD Work Phone: [facility] Work Phone: 11-01-2020 13:32-0400 Heart rate 91 /min Araseli Barrett MD Work Phone: [facility] Work Phone: 11-01-2020 13:32-0400 Respiratory rate 22 /min Araseli Barrett MD Work Phone: [facility] Work Phone: 06-13-2020 05:10-0400 Diastolic blood pressure 73 mm[Hg] Kody Cm MD Work Phone: [facility] Work Phone: 06-13-2020 05:10-0400 Systolic blood pressure 131 mm[Hg] Kody Cm MD Work Phone: [facility] Work Phone: 06-13-2020 05:09-0400 Body temperature 96.8 [degF] Kody Cm MD Work Phone: [facility] Work Phone: 06-13-2020 05:09-0400 Heart rate 74 /min Kody Cm MD Work Phone: [facility] Work Phone: 06-13-2020 05:09-0400 Respiratory rate 12 /min Kody Cm MD Work Phone: [facility] Work Phone: 06-13-2020 05:09-0400 SaO2% (BldA) [Mass fraction] 97 % Kody Cm MD Work Phone: [facility] Work Phone: Encounters Encounter Date Encounter Type Care Provider Facility Start: 05-08-2023 End: 05-08-2023 ambulatory SARAH BEST [facility] Start: 05-08-2023 End: 05-08-2023 Office outpatient visit 15 minutes Sarah Best MERCHANDISE PICKUP/RECEIVING ASSOCIATE-MANAGED SERVICES CONSULTANT Work Phone: [facility] Adult Endocrinology Comment on above: 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) Start: 04-09-2023 End: 04-09-2023 ambulatory CAS DOWELL Not Available Start: 03-28-2023 End: 03-29-2023 ambulatory Phillip Thomas MD Facility[facility] Start: 03-12-2023 Orders Only Cas Horner Work Phone: [facility] Comment on above: Moderate persistent asthma without complication (CMS/HCC) (Primary Dx) Start: 02-13-2023 End: 02-14-2023 ambulatory Tesfaye MASON Facility:[facility] Start: 02-04-2023 Refleonid BUSTOS RN-MANAGED SERVICES CONSULTANT Work Phone: [facility] Adult Neurology Start: 01-31-2023 End: 02-01-2023 ambulatory Tesfaye MASON Facility:[id number] Start: 01-24-2023 End: 01-25-2023 ambulatory Phillip Thomas MD Facility:[facility] Start: 01-16-2023 End: 01-16-2023 ambulatory CAS DOWELL Not Available Start: 01-10-2023 ambulatory MACRINA retana [facility] Start: 01-04-2023 End: 01-05-2023 ambulatory CAS DOWELL Facility:[facility] Start: 01-01-2023 End: 01-01-2023 ambulatory [facility] Start: 12-19-2022 ambulatory Tesfaye MARLON Facility:[facility] Start: 12-18-2022 End: 12-18-2022 Emergency department patient visit CAS ALEX GRAYSON [facility] Start: 12-18-2022 ambulatory Tesfaye MASON Facility:[facility] Start: 11-29-2022 End: 11-30-2022 ambulatory Phillip Thomas MD Facility:[facility] Start: 11-14-2022 End: 11-14-2022 ambulatory MACRINA WADSWORTH [facility] Start: 10-18-2022 End: 10-19-2022 ambulatory Phillip Thomas MD Facility:[facility] Start: 10-02-2022 End: 10-02-2022 ambulatory CAS DOWELL Facility:[facility] Start: 10-02-2022 End: 10-02-2022 Office outpatient visit 15 minutes Fuentes Amaral MD Work Phone: Hematology/Oncology Comment on above: 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HCC) (Primary Dx); Bleeding disorder (HCC); Coagulopathy (HCC) Start: 09-05-2022 End: 09-06-2022 ambulatory LORAINE RUBALCAVA Facility:[facility] Start: 09-05-2022 End: 09-05-2022 Patient encounter procedure LORAINE RUBALCAVA [facility] Start: 09-04-2022 ambulatory Tesfaye MASON Facility:[facility] Start: 07-21-2022 ambulatory MACRINA WADSWORTH [facility] Start: 07-04-2022 End: 07-04-2022 ambulatory [facility] Start: 06-27-2022 End: 06-27-2022 ambulatory STEPHON CRONIN [facility] Start: 06-26-2022 End: 06-27-2022 ambulatory Phillip Thomas MD Facility:[facility] Start: 06-15-2022 End: 06-16-[address] CAS DOWELL Facility: Start: 06-05-2022 End: 06-06-[address] DOCTOR CONN Facility:[facility] Start: 05-24-2022 ambulatory MACRINA WADSWORTH Arash retana [facility] Start: 05-03-2022 Telephone encounter Meena peter MD Work Phone: Neurology Comment on above: PAP Therapy Follow U p (DOWNLOAD) Start: 04-27-2022 End: 04-27-2022 ambulatory CAS DOWELL Facility:[facility] Start: 04-26-2022 End: 04-26-2022 ambulatory Bhargavi Saldana PA-C Work Phone: Neurology Comment on above: Migraine without aur a and without status migrainosus, not intractable (Primary Dx) Start: 04-26-2022 End: 04-26-2022 Telemedicine consultation with patient Bhargavi Saldana PA-C Work Phone: [facility] Start: 04-17-2022 End: 04-18-2022 [facility] Fuentes Amaral MD Work Phone: Hematology/Oncology Comment on above: 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HCC) (Primary Dx) Start: 04-10-2022 End: 04-10-2022 ambulatory MEENA GRISSOM Facility:[facility] Start: 04-03-2022 Telephone encounter Meena peter MD Work Phone: Neurology Comment on above: PAP Therapy Follow U p (NOT COMPLIANT NEEDS SD CHIP SENT TO DME ) Start: 04-03-2022 End: 04-03-2022 ambulatory CAS DOWELL Facility:[facility] Start: 04-03-2022 End: 04-03-2022 Office outpatient visit 15 minutes Fuentes Amaral MD Work Phone: Hematology/Oncology Comment on above: 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HCC) (Primary Dx); Bleeding disorder (HCC) Start: 03-29-2022 End: 03-30-2022 ambulatory FUENTES AMARAL [facility] Start: 03-21-2022 Telephone encounter Yancy Cook RN Hematology/Oncology Comment on above: Orders; Appointment Start: 03-16-2022 End: 03-17-2022 ambulatory FUENTES AMARAL [facility] Start: 02-28-2022 End: 03-01-2022 ambulatory LORAINE RUBALCAVA Facility:[facility] Start: 02-28-2022 End: 02-28-2022 Patient encounter procedure LORAINEJEANETTE RUBALCAVA [facility] Start: 02-27-2022 Patient Update Tesfaye Whitman [facility] Home Delivery Comment on above: [...] Start: 02-17-2022 End: 02-18-2022 ambulatory CAS DOWELL [facility] Start: 02-17-2022 End: 02-17-2022 Subsequent hospital visit by physician Cas Dowell MD Work Phone: [facility] Start: 02-16-2022 Telephone encounter Yancy Cook RN Hematology/Oncology Comment on above: Orders Start: 02-15-2022 End: 03-15-2022 ambulatory SHAIKH Janet JACOBSON Facility: Start: 02-13-2022 End: 02-14-2022 ambulatory CAS DOWELL Facility:[facility] Start: 02-13-2022 End: 02-13-2022 Patient encounter procedure Meena Grissom MD Work Phone: Neurology Comment on above: No-show for appointm ent (Primary Dx) Start: 02-13-2022 End: 02-13-2022 Telemedicine consultation with patient Meena Grissom MD Work Phone: [facility] Start: 02-10-2022 End: 02-10-2022 Visit (SP) Office Fuentes Amaral MD Work Phone: Hematology/Oncology Comment on above: 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HCC) (Primary Dx); Bleeding disorder (HCC) Start: 02-01-2022 Telephone encounter [facility] Work Phone: Neurology Comment on above: Appointment (Downloa d Pap Therapy Follow Up-) Start: 01-30-2022 End: 01-30-2022 Emergency department patient visit [facility] Start: 01-23-2022 End: 01-23-2022 Patient encounter procedure Marcell GREEN [facility] Start: 01-16-2022 End: 01-16-2022 ambulatory Bhargavi Saldana PA-C Work Phone: Neurology Comment on above: Migraine without aur a and without status migrainosus, not intractable (Primary Dx) Start: 01-16-2022 End: 01-16-2022 Telemedicine consultation with patient Bhargavi Saldana PA-C Work Phone: [facility] Start: 01-08-2022 End: 01-11-2022 Evaluation and management of inpatient CHAYO CASILLAS ELIEZER [facility] Start: 01-07-2022 End: 01-07-2022 Emergency department patient visit [facility] Start: 01-01-2022 End: 01-02-2022 ambulatory CAS DOEWLL Facility:[facility] Start: 12-24-2021 End: 12-25-[address] BELÉN ANDRADE Facility: Start: 2021 End: 2021 Patient encounter procedure LORAINE RUBALCAVA [facility] Start: 12-20-2021 Telephone encounter Juan Ramon olvera [facility] Work Phone: [facility] Comment on above: Results Start: 12-17-2021 Encounter for genera l adult medical examination without abnormal findings DR CAS DOWELL [facility] Start: 12-15-2021 Chart abstracting [facility] Work Phone: Neurology Start: 12-15-2021 End: 12-17-2021 ambulatory CAS DOWELL Facility:[facility] Start: 12-12-2021 End: 12-13-[address] [...] Start: 12-02-2021 End: 12-02-2021 ambulatory CAS DOWELL Facility:[facility] Start: 12-02-2021 End: 12-02-2021 Patient encounter [...] fro m caregiver Farzaneh Steward RN [facility] Start: 11-18-2021 End: 11-18-2021 ambulatory CAS DOWELL Facility:[facility] Start: 11-18-2021 End: 11-18-2021 Visit (SP) Office Fuentes Amaral MD Work Phone: Hematology/Oncology Comment on above: Breast screening (Pr imary Dx); 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HCC) Start: 11-16-2021 End: 11-16-2021 Telephone encounter Meena Grissom MD Work Phone: Neurology Comment on above: 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 (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) KATELIN on CPAP (Primary Dx); RLS (restless legs syndrome); Shift work sleep disorder; Sleep paralysis; 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; History of posttraumatic stress disorder (PTSD); Poor sleep pattern; Poor compliance with CPAP treatment Start: 11-16-2021 End: 11-16-2021 ambulatory CAS DOWELL Facility:[facility] Start: 11-16-2021 End: 11-16-2021 Telemedicine consultation with patient Meena Grissom MD Work Phone: [facility] Start: 11-15-2021 Telephone encounter [facility] Work Phone: Neurology Comment on above: Appointment (Lauro horner Pap Therapy Follow UP) Start: 11-14-2021 End: 11-14-[address] BELÉN ANDRADE Facility: Start: 11-10-2021 End: 11-11-2021 [facility] Fuentes Amaral MD Work Phone: [...] Start: 10-31-2021 End: 10-31-2021 ambulatory SAI PEREZ Facility:[facility] Start: 10-27-2021 Telephone encounter Fuentes stewart MD Work Phone: Hematology/Oncology Comment on above: Lab Orders Start: 10-24-2021 End: 10-24-2021 ambulatory CINDY RUSHING Facility:[facility] Start: 10-24-2021 End: 10-24-2021 ambulatory Cindy Rushing MD Work Phone: Allergy Comment on above: Night sweats (Primar y Dx); Lymphadenopathy; Rash and nonspecific skin eruption; Allergic rhinitis, unspecified seasonality, unspecified trigger; Moderate persistent asthma without complication Start: 10-24-2021 End: 10-24-2021 Telemedicine consultation with patient Cindy Rushing MD Work Phone: [facility] Start: 10-20-2021 End: 10-20-2021 ambulatory Micheal Perez MD Work Phone: Cardiology Comment on above: Palpitations (Primar y Dx); Symptomatic bradycardia; Orthostatic lightheadedness; Diffuse pain; Blood pressure instability; Decreased activity tolerance; Orthostatic intolerance; Moderate persistent asthma without complication; Physical deconditioning Start: 10-20-2021 End: 10-20-2021 Telemedicine consultation with patient Micheal Perez MD Work Phone: [facility] Start: 10-19-2021 End: 10-19-2021 ambulatory BHARGAVI SALDANA Facility:[facility] Start: 10-19-2021 End: 10-19-2021 ambulatory Bhargavi Saldana PA-C Work Phone: Neurology Comment on above: Chronic migraine wit hout aura, intractable, without status migrainosus (Primary Dx) Start: 10-19-2021 End: 10-19-2021 Telemedicine consultation with patient Bhargavi Saldana PA-C Work Phone: [facility] Start: 10-19-2021 End: 10-20-[address] HUSMA KIM Facility: Start: 10-14-2021 End: 10-14-2021 ambulatory Dolores Chavarria PSYD Work Phone: [facility] Comment on above: Depression, unspecif ied depression type (Primary Dx); Anxiety; Abnormal involuntary movement Start: 10-14-2021 End: 10-14-2021 Telemedicine consultation with patient Dolores Chavarria PSYD Work Phone: [facility] Start: 10-12-2021 End: 10-12-2021 ambulatory CAS DOWELL Facility:[facility] Start: 10-12-2021 End: 10-12-2021 ambulatory Ruth Villaseñor MD Work Phone: Rheumatology Comment on above: Malaise and fatigue (Primary Dx); Lymphadenopathy Start: 10-12-2021 End: 10-12-2021 Telemedicine consultation with patient Ruth Villaseñor MD Work Phone: [facility] Start: 09-30-2021 ambulatory Landen Blancas.MANAGED SERVICES CONSULTANT Work Phone: Pulmonary Medicine Comment on above: Breast testing Start: 09-30-2021 End: 09-30-2021 Subsequent hospital visit by physician Xr Chest Main A21 Radiology Comment on above: History of COVID-19 [Z86.16] Start: 09-27-2021 End: 09-27-2021 ambulatory [place] Work Phone: Pulmonary Lab Comment on above: Spirometry Start: 09-27-2021 End: 09-27-2021 Patient encounter procedure Pulm [facility] [place] Work Phone: [facility] Start: 09-23-2021 ambulatory Landen Clark APR N.MANAGED SERVICES CONSULTANT Work Phone: Pulmonary Medicine Comment on above: Breathing test Start: 09-22-2021 End: 09-23-2021 ambulatory Landen Clark APRN.MANAGED SERVICES CONSULTANT Work Phone: Pulmonary Medicine Comment on above: Ct scan results Start: 09-22-2021 Telephone encounter Landen Clark APRN.MACY Work Phone: Pulmonary Medicine Comment on above: [...] axilla Start: 09-19-2021 Telephone encounter Landen Clark APRN.MACY Work Phone: Pulmonary Medicine Comment on above: 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 Start: 09-16-2021 End: 09-16-2021 ambulatory Dolores Chavarria PSYD Work Phone: [facility] Comment on above: Depression, unspecif ied depression type (Primary Dx); Anxiety; Abnormal involuntary movement Start: 09-16-2021 End: 09-16-2021 Telemedicine consultation with patient Dolores Chavarria PSYD Work Phone: [facility] Start: 09-05-2021 End: 09-05-2021 Emergency department patient visit Christine Abraham DO Work Phone: [facility] ED Comment on above: Allergic reaction, i nitial encounter (Primary Dx) Start: 08-30-2021 End: 08-30-2021 [facility] Ayaka Bright MD Work Phone: [facility] Comment on above: Long COVID (Primary Dx); Diffuse pain; Decreased activity tolerance; PTSD (post-traumatic stress disorder) CT scan results sent Start: 08-23-2021 Telephone encounter Shelbie Umaña PA-C Work Phone: General Surgery Comment on above: Results - Ct Start: 08-23-2021 End: 08-23-2021 ambulatory Peter Knight APRN.CNP Work Phone: Neurology Comment on above: Diffuse pain (Primar y Dx); Decreased activity tolerance; Physical deconditioning; Orthostatic intolerance Start: 08-23-2021 End: 08-23-2021 Telemedicine consultation with patient Peter Knight APRN.MANAGED SERVICES CONSULTANT Work Phone: [facility] Start: 08-18-2021 ambulatory Mike Zayas MD Work Phone: [facility] Start: 08-18-2021 Patient encounter procedure Mike Zayas MD Work Phone: [facility] Start: 08-17-2021 ambulatory SAI ANA Facility: [facility] Start: 08-17-2021 End: 08-17-2021 Subsequent hospital visit by physician Echo [facility] Echocardiology Testing Comment on above: Symptomatic bradycar aziza [R00.1] Start: 08-16-2021 Orders Only Berlin Avila MD Work Phone: Radiology Comment on above: Chronic RLQ pain (Pr imary Dx) Start: 08-15-2021 Telephone encounter Jenni cassidy RN Work Phone: [facility] Delivery Comment on above: Insurance Authorizat ion (Emgality 120MG/ML syringes (migraine)) Start: 08-15-2021 End: 08-15-2021 Patient encounter procedure Berlin Avila MD Work Phone: General Surgery Comment on above: Chronic RLQ pain (Pr imary Dx); Diastasis recti Start: 08-12-2021 End: 08-12-2021 ambulatory Daniela Stewart PT Work Phone: [facility] Comment on above: Intractable chronic migraine without aura and without status migrainosus; Abnormal involuntary movement Start: 08-12-2021 End: 08-12-2021 Patient encounter procedure Back Tender Work Phone: [facility] Comment on above: White coat syndrome with hypertension (Primary Dx) Start: 08-05-2021 End: 08-05-2021 ambulatory Bhargavi Saldana PA-C Work Phone: Neurology Comment on above: Chronic migraine wit hout aura, intractable, without status migrainosus (Primary Dx) Start: 08-05-2021 End: 08-05-2021 Telemedicine consultation with patient Bhargavi Gadiel HEREDIA Work Phone: [facility] Start: 08-03-2021 End: 08-03-[address] RUBENS TIM . Facility: Start: 07-29-2021 End: 07-29-2021 ambulatory Dolores Chavarria PSYD Work Phone: [facility] Comment on above: Depression, unspecif ied depression type (Primary Dx); Anxiety; Intractable chronic migraine without aura and without status migrainosus; Abnormal involuntary movement Start: 07-29-2021 End: 07-29-2021 Telemedicine consultation with patient Dolores Chavarria PSYD Work Phone: [facility] Start: 07-25-2021 End: 07-25-2021 Patient [...] 07-18-2021 Patient encounter procedure Lab Lucas Wilks Mc Work Phone: Laboratory Medicine Comment on above: Screening for endocr ine disorder Start: 07-15-2021 End: 07-15-2021 [facility] Juan Ramon Briones [facility] Work Phone: [facility] Comment on above: Bleeding disorder (H CC) (Primary Dx); Coagulopathy (HCC); 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HCC) Start: 07-14-2021 End: 07-14-2021 Patient encounter procedure Aldo Ann MD Work Phone: Otolaryngology Comment on above: Allergy, initial enc ounter (Primary Dx); Headaches Start: 07-06-2021 End: 07-06-2021 Patient encounter procedure Tracee Mcintyre MD Work Phone: [facility] Comment on above: Intractable chronic migraine without [...] End: 06-27-2021 Patient encounter procedure Peter Knight APRN.MANAGED SERVICES CONSULTANT Work Phone: Neurology Comment on above: Worsening headaches (Primary Dx); Maxillary sinus cyst; Muscle spasms of lower extremity, unspecified laterality; Akathisia; Blurred vision; Chorea Start: 06-24-2021 End: 06-25-[address] VIKASH BECKHAM . Facility: Start: 06-22-2021 ambulatory Peter Knight APRN.MANAGED SERVICES CONSULTANT Work Phone: Neurology Comment on above: Legs Start: 06-20-2021 End: 06-21-2021 Emergency department patient visit Sean Andcristóbal MADRIGAL Work Phone: [facility] ED Comment on above: Spasm of [...] encounter procedure Autonomic 2 Neur Main [facility] Start: 06-13-2021 ambulatory Peter Knight MERCHANDISE PICKUP/RECEIVING ASSOCIATE.MANAGED SERVICES CONSULTANT Work Phone: Neurology Comment on above: Blood results Start: 06-10-2021 End: 06-10-2021 ambulatory Yan Bass MD Work Phone: Hematology/Oncology Comment on above: Coagulopathy (HCC) ( Primary Dx) Start: 06-10-2021 End: 06-10-2021 Patient encounter procedure Yan Bass MD Work Phone: [place] Start: 06-08-2021 Chart abstracting Yan tran MD Work Phone: Hematology/Oncology Start: 06-04-2021 End: 06-04-2021 Emergency department patient visit Brian Santana MD Work Phone: [facility] ED Comment on above: Urticaria (Primary D x); Moderate persistent asthma with exacerbation Start: 05-31-2021 Telephone encounter Peter bermeo MERCHANDISE PICKUP/RECEIVING ASSOCIATE.MANAGED SERVICES CONSULTANT Work Phone: Neurology Comment on above: Received Outside Med ical Records ([facility]) Start: 05-20-2021 End: 05-20-2021 Emergency department patient visit Cas Dowell MD Work Phone: [facility] ED Comment on above: Chest pain, unspecif ied type (Primary Dx); Abdominal pain, acute, right lower quadrant Start: 04-16-2021 End: 04-16-2021 Emergency department patient visit Mike Stevenson MD [facility] ED Comment on above: Intractable nausea a nd vomiting (Primary Dx); Hydrosalpinx; Left ovarian cyst Start: 03-07-2021 End: 03-08-2021 ambulatory CAS DOWELL [facility] Start: 03-06-2021 End: 03-07-2021 ambulatory CAS DOWELL [facility] Start: 11-01-2020 End: 11-01-2020 Emergency department patient visit Araseli Barrett MD Work Phone: [facility] ED Comment on above: COVID-19 (Primary Dx ) Start: 06-13-2020 End: 06-13-2020 Emergency department patient visit Kody Cm MD Work Phone: [facility] ED Comment on above: Strain of lumbar reg ion, initial encounter (Primary Dx) Procedures Date Procedure Procedure Detail Performing Clinician Start: 05-08-2023 Follow-up visit Follow-up SARAH BEST Start: 01-04-2023 Adult depression screening assessment Stella Flowers MERCHANDISE PICKUP/RECEIVING ASSOCIATE-MANAGED SERVICES CONSULTANT Work Phone: Start: 01-01-2023 Hemoglobin glycosylated a1c Cas Dowell MD Work Phone: Start: 02-17-2022 Assay of free thyroxine Akila Yao MD Work Phone: Start: 01-23-2022 Cystourethroscopy with dilation of urethral stricture LORAINE RUBALCAVA Start: 10-17-2021 Adult depression screening assessment Dolores Chavarria PSYD Work Phone: Start: 10-08-2021 Adult depression screening assessment Ruth Villaseñor MD Work Phone: Start: 09-30-2021 Radiologic exam chest 2 views Landen Clark MERCHANDISE PICKUP/RECEIVING ASSOCIATE.MANAGED SERVICES CONSULTANT Work Phone: Start: 09-27-2021 End: 09-27-2021 Co diffusing capacity Landen Clark MERCHANDISE PICKUP/RECEIVING ASSOCIATE.CN P Work Phone: Start: 09-14-2021 Adult depression screening assessment Dolores Chavarria PSYD Work Phone: Start: 08-17-2021 Echo tthrc r-t 2d w/wom-mode compl spec&colr d Christy Santos MD Work Phone: Start: 08-17-2021 LVEF ECHO Sai Perez MD Work Phone: Start: 07-29-2021 Adult depression screening assessment [facility] Work Phone: Start: 07-18-2021 Adrenocorticotropic hormone acth [...] 06-20-2021 Adult depression screening assessment Peter Knight APRN.MANAGED SERVICES CONSULTANT Work Phone: Start: 06-04-2021 RESPIRATORY CARE EVALUATION ONLY Brian Santana MD Work Phone: Start: 05-20-2021 Assay of troponin quantitative Shanna Rivas MERCHANDISE PICKUP/RECEIVING ASSOCIATE - MANAGED SERVICES CONSULTANT Work Phone: Start: 05-20-2021 Ct abdomen & pelvis w/o contrast material Shanna Rivas MERCHANDISE PICKUP/RECEIVING ASSOCIATE - MANAGED SERVICES CONSULTANT Work Phone: Start: 05-20-2021 Drug screen class list a Shanna Lee y MERCHANDISE PICKUP/RECEIVING ASSOCIATE - MANAGED SERVICES CONSULTANT Work Phone: Start: 05-20-2021 Urinalysis microscopic only Shanna Peña dax MERCHANDISE PICKUP/RECEIVING ASSOCIATE - MANAGED SERVICES CONSULTANT Work Phone: Start: 05-20-2021 Urnls dip stick/tablet rgnt auto w/o microscopy Shanna Bishop Evelyn MERCHANDISE PICKUP/RECEIVING ASSOCIATE - MANAGED SERVICES CONSULTANT Work Phone: Start: 05-20-2021 Radiologic exam chest single view Shanna Bishop Evelyn MERCHANDISE PICKUP/RECEIVING ASSOCIATE - MANAGED SERVICES CONSULTANT Work Phone: Start: 05-20-2021 Assay of lactate Shanna Bishop Evelyn MERCHANDISE PICKUP/RECEIVING ASSOCIATE - MANAGED SERVICES CONSULTANT Work Phone: Start: 05-20-2021 BASIC METABOLIC PANEL W/ REFLEX TO MG FOR LOW K Shanna Bishop Evelyn MERCHANDISE PICKUP/RECEIVING ASSOCIATE - MANAGED SERVICES CONSULTANT Work Phone: Start: 05-20-2021 C-reactive protein Shanna Bishop Evelyn MERCHANDISE PICKUP/RECEIVING ASSOCIATE - MANAGED SERVICES CONSULTANT Work Phone: Start: 05-20-2021 Ecg routine ecg w/least 12 lds w/i&r Araseli Barrett MD Work Phone: Start: 05-19-2021 Adult depression screening assessment Peter Knight MERCHANDISE PICKUP/RECEIVING ASSOCIATE.MANAGED SERVICES CONSULTANT Work Phone: Start: 04-16-2021 Ct abdomen & pelvis w/o contrast material Shanna Dario Evelyn MERCHANDISE PICKUP/RECEIVING ASSOCIATE - MANAGED SERVICES CONSULTANT Work Phone: Start: 04-16-2021 Radiologic exam chest single view Shanna Bishop Evelyn MERCHANDISE PICKUP/RECEIVING ASSOCIATE - MANAGED SERVICES CONSULTANT Work Phone: Start: 04-16-2021 Ecg routine ecg w/least 12 lds w/i&r Shanna Bishop Evelyn MERCHANDISE PICKUP/RECEIVING ASSOCIATE - MANAGED SERVICES CONSULTANT Work Phone: Start: 04-16-2021 Urinalysis microscopic only Shanna Peña dax MERCHANDISE PICKUP/RECEIVING ASSOCIATE - MANAGED SERVICES CONSULTANT Work Phone: Start: 04-16-2021 Urine test visual color cmprsn meths Shanna Bishop Evelyn MERCHANDISE PICKUP/RECEIVING ASSOCIATE - MANAGED SERVICES CONSULTANT Work Phone: Start: 04-16-2021 Assay of lipase Shanna Rivas MERCHANDISE PICKUP/RECEIVING ASSOCIATE - MANAGED SERVICES CONSULTANT Work Phone: Start: 04-16-2021 BASIC METABOLIC PANEL W/ REFLEX TO MG FOR LOW K Shanna Rivas MERCHANDISE PICKUP/RECEIVING ASSOCIATE - MANAGED SERVICES CONSULTANT Work Phone: Start: 04-16-2021 Hepatic function panel Shanna Rivas MERCHANDISE PICKUP/RECEIVING ASSOCIATE - MANAGED SERVICES CONSULTANT Work Phone: Start: 02-10-2021 H/O: hysterectomy History of hysterectomy Stella Flowers MERCHANDISE PICKUP/RECEIVING ASSOCIATE-MANAGED SERVICES CONSULTANT Work Phone: Start: 11-01-2020 Ecg routine ecg [...] BRUCE RRY Appendectomy LORAINE RUBALCAVA section LORAINE BRUCE RRY Ligation of fallopian tube J DELIA RUBALCAVA Nasal septoplasty LORAINE Olivia ERRY Tympanostomy LORAINE RUBALCAVA Plan of Treatment Date Care Activity Detail Author Start: 05-07-2024 Adult BMI Screening Adult BMI Screening [facility] Start: 05-07-2024 Tobacco Screening Tobacco Screening [facility] Start: 01-05-2024 Adult BMI Screening Adult BMI Screening [facility] Start: 01-05-2024 Depression Screening Depression Screening [facility] Start: 01-05-2024 Tobacco Screening Tobacco Screening [facility] Start: 11-19-2023 End: 11-19-2023 Patient encounter procedure 11/19/2023 8:45 AM EDT Office Visit [facility] [address] [facility] [address] [place] [id number] Akila Yao MD 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 Expected: 11/07/2023 (Approximate), Expires: 05/07/2024 [facility] Comment on above: Expected: 11/07/2023 (Approximate), Expi res: 05/07/2024 Start: 10-07-2023 Influenza vaccination Influenza Vaccine [facility] Start: 10-03-2023 End: 10-03-2023 CBC W Auto Differential panel - Blood CBC + DIFF Lab Routine 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) Coagulopathy (HCC) Expected: 10/03/2023 (Approximate), Expires: 10/03/2023 [facility] Work Phone: Comment on above: Expected: 10/03/2023 (Approximate), Expi res: 10/03/2023 Start: 10-03-2023 End: 10-03-2023 Comprehensive metabolic 2000 panel - Serum or Plasma COMP METABOLIC PANEL Lab Routine 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) Coagulopathy (HCC) Expected: 10/03/2023 (Approximate), Expires: 10/03/2023 [facility] Work Phone: Comment on above: Expected: 10/03/2023 (Approximate), Expi res: 10/03/2023 Start: 09-11-2023 ambulatory Ambulatory Facility:[facility] Start: 07-10-2023 End: 07-10-2023 Patient encounter procedure 07/10/2023 9:00 AM EDT Office Visit [facility] [address] [place] [phone] Jodi Holden, PONCE [address] [place] [address] SULTANAS AYDE GARCÍA Start: 07-05-2023 End: 07-05-2023 Telemedicine consultation with patient 07/05/2023 3:30 PM EDT Telemedicine [facility] [address] [place] [address] Stella Flowers, MERCHANDISE PICKUP/RECEIVING ASSOCIATE-MANAGED SERVICES CONSULTANT [address] [place] [address] [facility] Start: 05-08-2023 End: 05-07-2024 US Thyroid gland Ultrasound thyroid Imaging Routine 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 [facility] [address] [place] [address] [facility] Start: 04-09-2023 End: 04-09-2023 Patient encounter procedure 04/09/2023 8:45 AM EST [facility] [address] [place] [phone] Cas Dowell MD [address] [place] [phone] [facility] Start: 04-03-2023 Hemoglobin A1c measurement Diabetes: Hemoglobin A1C [facility] Start: 01-30-2023 GFR test (Diabetes, CKD 3-4, OR last GFR 15-59) GFR test (Diabetes, CKD 3-4, OR last GFR 15-59) [facility] Start: 01-09-2023 Hemoglobin A1c measurement A1C test (Diabetic or Prediabetic) [facility] Start: 10-17-2022 Adult depression screening assessment DEPRESSION SCREENING [facility] Start: 10-08-2022 Adult depression screening assessment DEPRESSION SCREENING [facility] Start: 10-06-2022 Influenza vaccination [facility] Start: 10-01-2022 End: 04-03-2023 CBC W Auto Differential panel - Blood CBC + DIFF Lab Routine 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) Expected: 10/01/2022 (Approximate), Expires: 04/03/2023 [facility] Work Phone: Comment on above: Expected: 10/01/2022 (Approximate), Expi res: 04/03/2023 Start: 10-01-2022 End: 04-03-2023 Comprehensive metabolic 2000 panel - Serum or Plasma COMP METABOLIC PANEL Lab Routine 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) Expected: 10/01/2022 (Approximate), Expires: 04/03/2023 [facility] Work Phone: Comment on above: Expected: 10/01/2022 (Approximate), Expi res: 04/03/2023 Start: 09-14-2022 Adult depression screening assessment DEPRESSION SCREENING [facility] Start: 07-29-2022 Adult depression screening assessment DEPRESSION SCREENING [facility] Start: 06-29-2022 Adult depression screening assessment DEPRESSION SCREENING [facility] Start: 06-21-2022 End: 06-21-2022 Patient encounter procedure 06/21/2022 Office Visit Pulmonology Armando Balderrama, [address] [place] [address] [facility] Start: 06-20-2022 Adult depression screening assessment DEPRESSION SCREENING [facility] Start: 05-25-2022 Depression Monitoring Depression Monitoring [facility] Start: 05-19-2022 Adult depression screening assessment DEPRESSION SCREENING [facility] Start: 04-16-2022 Creatinine measurement Creatinine monitoring [facility] Start: 04-16-2022 Potassium monitoring Potassium monitoring [facility] Start: 02-27-2022 End: 02-27-2022 Patient encounter procedure 02/27/2022 Office Visit Pulmonology Nabor Yancey, MERCHANDISE PICKUP/RECEIVING ASSOCIATE - MANAGED SERVICES CONSULTANT [address] [facility] [address] [place] [address] [facility] Start: 02-10-2022 End: 04-12-2022 PLATELET TRANSMISSION ELECTRON MICROSCOPIC STUDY PLATELET TRANSMISSION ELECTRON MICROSCOPIC STUDY Lab Routine 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) Expected: 02/10/2022, Expires: 04/12/2022 [facility] Work Phone: Comment on above: Expected: 02/10/2022, Expires: Start: 02-05-2022 DEPRESSION ASSESSMENT DEPRESSION ASSESSMENT [facility] Start: 2021 End: 2021 Patient encounter procedure 2021 Office Visit Pulmonology Armando Balderrama, DO [address] [id number] [facility] Start: 11-16-2021 End: 01-16-2022 Ferritin [Mass/volume] in Serum or Plasma FERRITIN BLD Lab Routine RLS (restless legs syndrome) Expected: 11/16/2021, Expires: 01/16/2022 [facility] Work Phone: Comment on above: Expected: 11/16/2021, Expires: 2 Start: 11-16-2021 End: 01-16-2022 Iron and Iron binding capacity panel - Serum or Plasma IRON + TIBC Lab Routine RLS (restless legs syndrome) Expected: 11/16/2021, Expires: 01/16/2022 [facility] Work Phone: Comment on above: Expected: 11/16/2021, Expires: 2 Start: 11-01-2021 Creatinine [facility] Work Phone: Start: 11-01-2021 Potassium monitoring Potassium monitoring [facility] [employer] Work Phone: Start: 10-06-2021 Influenza vaccination [facility] Start: 09-28-2021 Glaucoma screening Diabetic retinal exam [facility] Start: 09-21-2021 End: 11-21-2021 Phosphate [Mass/volume] in Serum or Plasma [facility] Work Phone: Comment on above: Expected: 09/21/2021, [...] joint, multiple sites Expected: 09/19/2021, Expires: 11/19/2021 [facility] Work Phone: Comment on above: Expected: 09/19/2021, [...] joint, multiple sites Expected: 09/19/2021, Expires: 11/19/2021 [facility] Work Phone: Comment on above: Expected: 09/19/2021, Expires: 2 Start: 09-19-2021 End: 11-19-2021 CARDIOLIPIN IGM ABS CARDIOLIPIN IGM ABS Lab Routine History of COVID-19 Post-acute sequelae of COVID-19 (PASC) SOB (shortness of breath) Chronic cough Chest discomfort Palpitation CAVANAUGH (dyspnea on exertion) Dizziness Near syncope Night sweats Orthopnea Anxiety Myalgia Pain in joint, multiple sites Expected: 09/19/2021, Expires: 11/19/2021 [facility] Work Phone: Comment on above: Expected: 09/19/2021, Expires: 2 Start: 09-19-2021 End: 11-19-2021 CBC panel - Blood by Automated count CBC Lab Routine History of COVID-19 Post-acute sequelae of COVID-19 (PASC) SOB (shortness of breath) Chronic cough Chest discomfort Palpitation CAVANAUGH (dyspnea on exertion) Dizziness Near syncope Night sweats Orthopnea Anxiety Myalgia Pain in joint, multiple sites Expected: 09/19/2021, Expires: 11/19/2021 [facility] Work Phone: Comment on above: Expected: 09/19/2021, [...] joint, multiple sites Expected: 09/19/2021, Expires: 11/19/2021 [facility] Work Phone: Comment on above: Expected: 09/19/2021, [...] joint, multiple sites Expected: 09/19/2021, Expires: 11/19/2021 [facility] Work Phone: Comment on above: Expected: 09/19/2021, Expires: 2 Start: 09-19-2021 End: 11-19-2021 Erythrocyte sedimentation rate SED RATE WESTERGREN Lab Routine History of COVID-19 Post-acute sequelae of COVID-19 (PASC) SOB (shortness of breath) Chronic cough Chest discomfort Palpitation CAVANAUGH (dyspnea on exertion) Dizziness Near syncope Night sweats Orthopnea Anxiety Myalgia Pain in joint, multiple sites Expected: 09/19/2021, Expires: 11/19/2021 [facility] Work Phone: Comment on above: Expected: 09/19/2021, Expires: 2 Start: 09-19-2021 End: 11-19-2021 Fibrin D-dimer FEU [Mass/volume] in Platelet poor plasma D-DIMER Lab Routine History of COVID-19 Post-acute sequelae of COVID-19 (PASC) SOB (shortness of breath) Chronic cough Chest discomfort Palpitation CAVANAUGH (dyspnea on exertion) Dizziness Near syncope Night sweats Orthopnea Anxiety Myalgia Pain in joint, multiple sites Expected: 09/19/2021, Expires: 11/19/2021 [facility] Work Phone: Comment on above: Expected: 09/19/2021, [...] joint, multiple sites Expected: 09/19/2021, Expires: 11/19/2021 [facility] Work Phone: Comment on above: Expected: 09/19/2021, Expires: 2 Start: 09-19-2021 End: 11-19-2021 OMEGACHECK OMEGACHECK Lab Routine History of COVID-19 Post-acute sequelae of COVID-19 (PASC) SOB (shortness of breath) Chronic cough Chest discomfort Palpitation CAVANAUGH (dyspnea on exertion) Dizziness Near syncope Night sweats Orthopnea Anxiety Myalgia Pain in joint, multiple sites Expected: 09/19/2021, Expires: 11/19/2021 [facility] Work Phone: Comment on above: Expected: 09/19/2021, Expires: 2 Start: 09-19-2021 End: 11-19-2021 TMAO TMAO Lab Routine History of COVID-19 Post-acute sequelae of COVID-19 (PASC) SOB (shortness of breath) Chronic cough Chest discomfort Palpitation CAVANAUGH (dyspnea on exertion) Dizziness Near syncope Night sweats Orthopnea Anxiety Myalgia Pain in joint, multiple sites Expected: 09/19/2021, Expires: 11/19/2021 [facility] Work Phone: Comment on above: Expected: 09/19/2021, Expires: 2 Start: 09-19-2021 End: 11-19-2021 TRACE ELEMENTS/TPN TRACE ELEMENTS/TPN Lab Routine History of COVID-19 Post-acute sequelae of COVID-19 (PASC) SOB (shortness of breath) Chronic cough Chest discomfort Palpitation CAVANAUGH (dyspnea on exertion) Dizziness Near syncope Night sweats Orthopnea Anxiety Myalgia Pain in joint, multiple sites Expected: 09/19/2021, Expires: 11/19/2021 [facility] Work Phone: Comment on above: Expected: 09/19/2021, Expires: 2 Start: 09-05-2021 Influenza vaccination Flu vaccine (#1) [facility] Start: 08-24-2021 End: 08-24-2021 Patient encounter procedure 08/24/2021 Office Visit Pulmonology Armando Balderrama DO [address] [address] [facility] Start: 07-25-2021 End: 09-24-2021 Complement C3 [Mass/volume] in Serum or Plasma [facility] Work Phone: Comment on above: Expected: 07/25/2021, Expires: 2 Start: 07-25-2021 End: 09-24-2021 Complement C4 [Mass/volume] in Serum or Plasma [facility] Work Phone: Comment on above: Expected: 07/25/2021, Expires: 2 Start: 07-25-2021 End: 09-24-2021 TRYPTASE BLOOD [facility] Work Phone: Comment on above: Expected: 07/25/2021, Expires: 2 Start: 07-05-2021 End: 09-04-2021 Corticotropin [Mass/volume] in Plasma ACTH BLD Lab Routine Screening for endocrine disorder Expected: 07/05/2021, Expires: 09/04/2021 [facility] Work Phone: Comment on above: Expected: 07/05/2021, Expires: 2 Start: 07-05-2021 End: 09-04-2021 Cortisol [Mass/volume] in Serum or Plasma CORTISOL BLD Lab Routine Screening for endocrine disorder Expected: 07/05/2021, Expires: 09/04/2021 [facility] Work Phone: Comment on above: Expected: 07/05/2021, Expires: 2 Start: 07-01-2021 End: 08-31-2021 CBC W Ordered Manual Differential panel - Blood PATHOLOGIST INTERPRETATION WITH CBC AND DIFF Lab Routine Coagulopathy (HCC) 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HCC) Expected: 07/01/2021, Expires: 08/31/2021 [facility] Work Phone: Comment on above: Expected: 07/01/2021, Expires: 2 Start: 07-01-2021 End: 08-31-2021 Fibrinogen [Mass/volume] in Platelet poor plasma by Coagulation assay FIBRINOGEN Lab Routine Coagulopathy (HCC) 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HCC) Expected: 07/01/2021, Expires: 08/31/2021 [facility] Work Phone: Comment on above: Expected: 07/01/2021, Expires: 2 Start: 07-01-2021 End: 08-31-2021 FIBRINOGEN ANTIGEN FIBRINOGEN ANTIGEN Lab Routine Coagulopathy (HCC) 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HCC) Expected: 07/01/2021, Expires: 08/31/2021 [facility] Work Phone: Comment on above: Expected: 07/01/2021, Expires: 2 Start: 07-01-2021 End: 08-31-2021 PLATELET AGGREGATION PANEL PLATELET AGGREGATION PANEL Lab Routine Coagulopathy (HCC) 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HCC) Expected: 07/01/2021, Expires: 08/31/2021 [facility] Work Phone: Comment on above: Expected: 07/01/2021, Expires: 2 Start: 07-01-2021 End: 08-31-2021 PLATELET FUNCTION SCREEN PLATELET FUNCTION SCREEN Lab Routine Coagulopathy (HCC) 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HCC) Expected: 07/01/2021, Expires: 08/31/2021 [facility] Work Phone: Comment on above: Expected: 07/01/2021, Expires: 2 Start: 07-01-2021 End: 08-31-2021 THROMBOGRAPH HEPARINASE PANEL THROMBOGRAPH HEPARINASE PANEL Lab Routine Coagulopathy (HCC) 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HCC) Expected: 07/01/2021, Expires: 08/31/2021 [facility] Work Phone: Comment on above: Expected: 07/01/2021, Expires: 2 Start: 06-27-2021 End: 08-27-2021 Alpha tocopherol [Mass/volume] in Serum or Plasma VITAMIN E/TOCOPHEROL Lab Routine Muscle spasms of lower extremity, unspecified laterality Akathisia Expected: 06/27/2021, Expires: 08/27/2021 [facility] Work Phone: Comment on above: Expected: 06/27/2021, Expires: 2 Start: 06-27-2021 End: 08-27-2021 Ceruloplasmin [Mass/volume] in Serum or Plasma CERULOPLASMIN BLD Lab Routine Muscle spasms of lower extremity, unspecified laterality Akathisia Expected: 06/27/2021, Expires: 08/27/2021 [facility] Work Phone: Comment on above: Expected: 06/27/2021, Expires: 2 Start: 06-27-2021 End: 08-27-2021 CK CREATINE KINASE CK CREATINE KINASE Lab Routine Muscle spasms of lower extremity, unspecified laterality Akathisia Expected: 06/27/2021, Expires: 08/27/2021 [facility] Work Phone: Comment on above: Expected: 06/27/2021, Expires: 2 Start: 06-27-2021 End: 08-27-2021 COPPER, SERUM/PLASMA FREE COPPER, SERUM/PLASMA FREE Lab Routine Muscle spasms of lower extremity, unspecified laterality Akathisia Expected: 06/27/2021, Expires: 08/27/2021 [facility] Work Phone: Comment on above: Expected: 06/27/2021, Expires: 2 Start: 06-27-2021 End: 08-27-2021 FERRITIN BLD FERRITIN BLD Lab Routine Muscle spasms of lower extremity, unspecified laterality Akathisia Expected: 06/27/2021, Expires: 08/27/2021 [facility] Work Phone: Comment on above: Expected: 06/27/2021, Expires: 2 Start: 06-14-2021 End: 08-14-2021 Corticotropin [Mass/volume] in Plasma ACTH BLD Lab Routine Screening for endocrine disorder Expected: 06/14/2021, Expires: 08/14/2021 [facility] Work Phone: Comment on above: Expected: 06/14/2021, Expires: 2 Start: 06-14-2021 End: 08-14-2021 Cortisol [Mass/volume] in Serum or Plasma [facility] Work Phone: Comment on above: Expected: 06/14/2021, Expires: 2 Start: 06-14-2021 End: 08-14-2021 DHEA-S BLD [facility] Work Phone: Comment on above: Expected: 06/14/2021, Expires: 2 Start: 06-10-2021 End: 08-10-2021 APTT INCUBATED MIXING STUDY APTT INCUBATED MIXING STUDY Lab Routine Coagulopathy ([facility]) Expected: 06/10/2021, Expires: 08/10/2021 [facility] Work Phone: Comment on above: Expected: 06/10/2021, Expires: 2 Start: 06-10-2021 End: 08-10-2021 Coagulation factor IX activity actual/normal in Platelet poor plasma by Coagulation assay FACTOR IX:C ASSAY Lab Routine Coagulopathy ([facility]) Expected: 06/10/2021, Expires: 08/10/2021 [facility] Work Phone: Comment on above: Expected: 06/10/2021, Expires: 2 Start: 06-10-2021 End: 08-10-2021 Coagulation factor V activity actual/normal in Platelet poor plasma by Coagulation assay FACTOR V:C ASSAY Lab Routine Coagulopathy ([facility]) Expected: 06/10/2021, Expires: 08/10/2021 [facility] Work Phone: Comment on above: Expected: 06/10/2021, Expires: 2 Start: 06-10-2021 End: 08-10-2021 Coagulation factor VIII activity actual/normal in Platelet poor plasma by Coagulation assay FACTOR VIII:C ASSAY Lab Routine Coagulopathy ([facility]) Expected: 06/10/2021, Expires: 08/10/2021 [facility] Work Phone: Comment on above: Expected: 06/10/2021, Expires: 2 Start: 06-10-2021 End: 08-10-2021 Coagulation factor X activity actual/normal in Platelet poor plasma by Coagulation assay FACTOR X:C ASSAY Lab Routine Coagulopathy ([facility]) Expected: 06/10/2021, Expires: 08/10/2021 [facility] Work Phone: Comment on above: Expected: 06/10/2021, Expires: 2 Start: 06-10-2021 End: 08-10-2021 Coagulation factor XI activity actual/normal in Platelet poor plasma by Coagulation assay FACTOR XI:C ASSAY Lab Routine Coagulopathy ([facility]) Expected: 06/10/2021, Expires: 08/10/2021 [facility] Work Phone: Comment on above: Expected: 06/10/2021, Expires: 2 Start: 06-10-2021 End: 08-10-2021 PLATELET AGGREGATION PANEL PLATELET AGGREGATION PANEL Lab Routine Coagulopathy ([facility]) Expected: 06/10/2021, Expires: 08/10/2021 [facility] Work Phone: Comment on above: Expected: 06/10/2021, Expires: 2 Start: 06-10-2021 End: 08-10-2021 PLATELET FUNCTION SCREEN PLATELET FUNCTION SCREEN Lab Routine Coagulopathy ([facility]) Expected: 06/10/2021, Expires: 08/10/2021 [facility] Work Phone: Comment on above: Expected: 06/10/2021, Expires: 2 Start: 06-10-2021 End: 08-10-2021 Prothrombin activity actual/normal in Platelet poor plasma by Coagulation assay FACTOR II:C ASSAY Lab Routine Coagulopathy ([facility]) Expected: 06/10/2021, Expires: 08/10/2021 [facility] Work Phone: Comment on above: Expected: 06/10/2021, Expires: 2 Start: 06-10-2021 End: 08-10-2021 VON WILLEBRAND DX PANEL VON WILLEBRAND DX PANEL Lab Routine Coagulopathy ([facility]) Expected: 06/10/2021, Expires: 08/10/2021 [facility] Work Phone: Comment on above: Expected: 06/10/2021, Expires: Start: 05-25-2021 End: 05-25-2021 Patient encounter procedure 05/25/2021 Office Visit Pulmonology Armando Balderrama DO [address] [phone] [facility] Start: 02-28-2021 End: 02-28-2021 Patient encounter procedure 02/28/2021 Office Visit Pulmonology Fortunato Dean MD [address] [place] [address] [place] [phone] [facility] Start: 02-05-2021 DEPRESSION ASSESSMENT DEPRESSION ASSESSMENT [facility] Start: 10-06-2020 Influenza vaccination [facility] Start: 06-28-2020 End: 06-28-2020 Patient encounter procedure 06/28/2020 Office Visit Pulmonology Fortunato Dean MD [address] [id number] [place] H[facility]PITAL PUL Part [facility] Start: 12-20-2018 Diabetes screen Diabetes screen [facility] Start: 03-17-2016 Screening for malignant neoplasm of cervix Cervical cancer screen [facility] Work Phone: Start: 12-20-2013 HPV TESTING HPV TESTING [facility] Start: 12-20-2004 PAP TESTING PAP TESTING [facility] Start: 12-20-2002 DTaP,Tdap and Td Vaccines (1 - Tdap) DTaP,Tdap and Td Vaccines (1 - Tdap) [facility] [employer] [facility] Start: 12-20-2002 DTaP/Tdap/Td vaccine (1 - Tdap) DTaP/Tdap/Td vaccine (1 - Tdap) [facility] Start: 12-20-2002 Hepatitis B vaccine (1 of 3 - Risk 3-dose series) Hepatitis B vaccine (1 of 3 - Risk 3-dose series) [facility] Start: 12-20-2002 Urine microalbumin profile DTAP,TDAP,TD (1 - Tdap) [facility] Start: 12-20-2002 Urine screening for protein Diabetes: Urine Protein Screening [facility] Start: 12-20-2001 Adult BMI Follow Up Plan Adult BMI Follow Up Plan [facility] Start: 12-20-2001 ANNUAL PCP TEAM CHRONIC DISEASE VISIT ANNUAL PCP TEAM CHRONIC DISEASE VISIT [facility] Start: 12-20-2001 HEPATITIS C SCREENING HEPATITIS C SCREENING [facility] Start: 12-20-2001 Hepatitis C screening Hepatitis C screen [facility] Start: 12-20-2001 HIV SCREENING HIV SCREENING [facility] Start: 12-20-2001 Urine screening for protein Diabetic Alb to Cr ratio (uACR) test [facility] Start: 1999 COVID-19 Vaccine (1) COVID-19 Vaccine (1) [facility] [employer] Phone: Start: 12-20-1998 HIV screening HIV screen [facility] Start: 1995 COVID-19 Vaccine (1) COVID-19 Vaccine (1) [facility] [employer] Phone: Start: 1995 Depression Screen Depression Screen [facility] Start: 12-20-1993 Diabetic foot examination Diabetic foot exam [facility] Start: 12-20-1993 Glaucoma screening Diabetes: Retinopathy Screening [facility] Start: 12-20-1993 Lipid panel Lipids [facility] Start: 12-20-1989 PNEUMOCOCCAL (1 - PCV) PNEUMOCOCCAL (1 - PCV) [facility] Start: 12-20-1989 Pneumococcal 0-64 years Vaccine (1 - PCV) Pneumococcal 0-64 years Vaccine (1 - PCV) [facility] Start: 12-20-1989 Pneumococcal 0-64 years Vaccine (1 of 2 - PPSV23) Pneumococcal 0-64 years Vaccine (1 of 2 - PPSV23) [facility] Start: 12-20-1988 COVID-19 VACCINE (#1) COVID-19 VACCINE (#1) [facility] Start: 12-20-1988 COVID-19 Vaccine (1) COVID-19 Vaccine (1) [facility] Start: 12-20-1984 Varicella vaccine (1 of 2 - 2-dose childhood series) Varicella vaccine (1 of 2 - 2-dose childhood series) [facility] Start: 06-19-1984 COVID-19 VACCINE (#1) COVID-19 VACCINE (#1) [facility] Start: 1983 HEPATITIS B (1 of 3 - 3-dose series) HEPATITIS B (1 of 3 - 3-dose series) [facility] Start: 1983 Hepatitis C screening Hepatitis C screen [facility] ACTIGRAPHY TESTING ACTIGRAPHY TE STING Procedures Routine Shift work sleep disorder Poor sleep pattern 1 Occurrences starting 11/16/2021 [facility] Work Phone: Comment on above: 1 Occurrences starting 11/16/2021 Ambulatory bp mntr w /sw 24 hr+ rec scan ewa i&r AMBULATORY BP MONITORING Cardiology Routine Blood pressure instability Ordered: 07/21/2021 [facility] Work Phone: Comment on above: Ordered: 07/21/2021 Cardiovascular funct ion eval w/tilt table w/mntr TILT TABLE EVALUATION Cardiology Routine Palpitations Symptomatic bradycardia Orthostatic intolerance Ordered: 10/20/2021 [facility] Work Phone: Comment on above: Ordered: 10/20/2021 End: 07-21-2022 Echocardiography ECHO Cardiology Routine Symptomatic bradycardia Blood pressure instability History of COVID-19 1 Occurrences starting 07/21/2021 until 07/21/2022 [facility] Work Phone: Comment on above: 1 Occurrences starting 07/21/2021 until 07/21/2022 EKG 12 Lead EKG 12 Lead ECG STAT 11/01/2020 4:26 PM [facility] E[facility] 12 Lead EKG 12 Lead ECG STAT 04/16/2021 8:11 PM EST [employer] Work Phone: EKG 12 Lead EKG 12 Lead ECG STAT 06/21/2021 12:06 AM EDT [facility] End: 10-19-2022 LUNG DIFFUSION CAPACITY (DLCO) LUNG DIFFUSION CAPACITY (DLCO) PFT Routine History of COVID-19 Post-acute sequelae of COVID-19 (PASC) SOB (shortness of breath) Chronic cough Chest discomfort Palpitation CAVANAUGH (dyspnea on exertion) Dizziness Near syncope Night sweats Orthopnea Anxiety Myalgia Pain in joint, multiple sites 1 Occurrences starting 09/19/2021 until 10/19/2022 [facility] Work Phone: Comment on above: 1 Occurrences starting 09/19/2021 until 10/19/2022 End: 10-19-2022 LUNG VOLUMES LUNG VOLUMES PFT Routine History of COVID-19 Post-acute sequelae of COVID-19 (PASC) SOB (shortness of breath) Chronic cough Chest discomfort Palpitation CAVANAUGH (dyspnea on exertion) Dizziness Near syncope Night sweats Orthopnea Anxiety Myalgia Pain in joint, multiple sites 1 Occurrences starting 09/19/2021 until 10/19/2022 [facility] Work Phone: Comment on above: 1 Occurrences starting 09/19/2021 until 10/19/2022 End: 01-05-2023 NITRIC OXIDE, EXHALED NITRIC OXIDE, EXHALED PFT Routine Moderate persistent asthma without complication SOB (shortness of breath) Post-acute sequelae of COVID-19 (PASC) 1 Occurrences starting 12/06/2021 until 01/05/2023 [facility] Work Phone: Comment on above: 1 Occurrences starting 12/06/2021 until 01/05/2023 OUTSIDE VENDOR CARDI AC OUTPATIENT EXTENDED RHYTHM RECORDING (WITHOUT TELEMETRY) OUTSIDE VENDOR CARDIAC OUTPATIENT EXTENDED RHYTHM RECORDING (WITHOUT TELEMETRY) Holter Routine Palpitations Symptomatic bradycardia Orthostatic lightheadedness Diffuse pain Blood pressure instability Decreased activity tolerance Orthostatic intolerance Moderate persistent asthma without complication Physical deconditioning Ordered: 10/20/2021 [facility] Work Phone: Comment on above: Ordered: 10/20/2021 End: 12-16-2022 PAP NAP PSG (CPAP, BILEVEL, ASV) PAP NAP PSG (CPAP, BILEVEL, ASV) Procedures Routine KATELIN on CPAP Poor compliance with CPAP treatment 1 Occurrences starting 11/16/2021 until 12/16/2022 [facility] Work Phone: Comment on above: 1 Occurrences starting 11/16/2021 until 12/16/2022 End: 12-16-2022 PAP TITRATION PSG (CPAP, BIPAP, ASV) PAP TITRATION PSG (CPAP, BIPAP, ASV) Procedures Routine KATELIN on CPAP 1 Occurrences starting 11/16/2021 until 12/16/2022 [facility] Work Phone: Comment on above: 1 Occurrences starting 11/16/2021 until 12/16/2022 End: 02-17-2022 PLATELET ELECT.HOSSEIN [facility] Work Phone: Comment on above: Once [...] sites 1 Occurrences starting 09/19/2021 until 10/19/2022 [facility] Work Phone: Comment on above: 1 Occurrences starting 09/19/2021 until 10/19/2022 End: 10-19-2022 SIX MINUTE WALK SIX MINUTE WALK PFT Routine History of COVID-19 Post-acute sequelae of COVID-19 (PASC) SOB (shortness of breath) Chronic cough Chest discomfort Palpitation CAVANAUGH (dyspnea on exertion) Dizziness Near syncope Night sweats Orthopnea Anxiety Myalgia Pain in joint, multiple sites 1 Occurrences starting 09/19/2021 until 10/19/2022 [facility] Work Phone: Comment on above: 1 Occurrences starting 09/19/2021 until 10/19/2022 SIX MINUTE WALK SIX MINUTE WALK PFT Routine History of COVID-19 Post-acute sequelae of COVID-19 (PASC) SOB (shortness of breath) Chronic cough Chest discomfort Palpitation CAVANAUGH (dyspnea on exertion) Dizziness Near syncope Night sweats Orthopnea Anxiety Myalgia Pain in joint, multiple sites 09/27/2021 8:23 AM EDT [facility] Work Phone: End: 10-19-2022 SPIROMETRY - BASELINE AND POST DILATOR SPIROMETRY - BASELINE AND POST DILATOR PFT Routine History of COVID-19 Post-acute sequelae of COVID-19 (PASC) SOB (shortness of breath) Chronic cough Chest discomfort Palpitation CAVANAUGH (dyspnea on exertion) Dizziness Near syncope Night sweats Orthopnea Anxiety Myalgia Pain in joint, multiple sites 1 Occurrences starting 09/19/2021 until 10/19/2022 [facility] Work Phone: Comment on above: 1 Occurrences starting 09/19/2021 until 10/19/2022 End: 01-05-2023 SPIROMETRY - BASELINE AND POST DILATOR SPIROMETRY - BASELINE AND POST DILATOR PFT Routine Moderate persistent asthma without complication SOB (shortness of breath) Post-acute sequelae of COVID-19 (PASC) 1 Occurrences starting 12/06/2021 until 01/05/2023 [facility] Work Phone: Comment on above: 1 Occurrences starting 12/06/2021 until 01/05/2023 End: 05-07-2024 Thyroid profile includes TSH FT4 Thyroid profile includes TSH FT4 Lab Routine 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 1 Occurrences starting 05/08/2023 until 05/07/2024 [employer] Work Phone: Comment on above: 1 Occurrences starting 05/08/2023 until 05/07/2024 End: 10-19-2022 Us chest real time w/image documentation US CHEST WALL/SOFT TISSUE Radiology Routine Post-acute sequelae of COVID-19 (PASC) Mass of left axilla 1 Occurrences starting 09/19/2021 until 10/19/2022 [facility] Work Phone: Comment on above: 1 Occurrences starting 09/19/2021 until 10/19/2022 End: 09-15-2022 Us pelvic nonobstetric image dcmtn limited/f/u US PELVIS LTD Radiology Routine Chronic RLQ pain 1 Occurrences starting 08/16/2021 until 09/15/2022 [facility] Work Phone: Comment on above: 1 Occurrences starting 08/16/2021 until 09/15/2022 End: 09-14-2022 US SOFT TISSUE ABDOMEN US SOFT TISSUE ABDOMEN Radiology Routine Chronic RLQ pain 1 Occurrences starting 08/15/2021 until 09/14/2022 [facility] Work Phone: Comment on above: 1 Occurrences starting 08/15/2021 until 09/14/2022 [facility] Immunizations Immunization Date Immunization Notes Care Provider [facility] 11-20-2019 influenza virus vaccine, H5N1, A/ ([facility]) Cas Dowell MD Work Phone: [facility] 11-20-2019 influenza virus vaccine, unspecified formulation Araseli Barrett MD Work Phone: [facility] Work Phone: 11-20-2019 influenza, unspecifi ed formulation LORAINE RUBALCAVA [facility] 11-06-2019 influenza virus vaccine, unspecified formulation LORAINE RUBALCAVA [facility] 11-06-2019 influenza, high dose seasonal, preservative-free Yan Bass MD Work Phone: [facility] 10-27-2019 influenza virus vaccine, unspecified formulation LORAINE RUBALCAVA [facility] 10-27-2019 influenza, injectabl e, quadrivalent, preservative free Yan Bass MD Work Phone: [facility] Payers Date Payer Category Payer Unknown [id number]. [id number] 2022 Unknown [id number] 2022 Unknown [id number] 2014 Unknown MMO MMO [employer] [id number] 2014-Present [phone] [address] [place] [address] PPO [id number]. [id number] 2014 Unknown [id number]. 1.13.159.2.7.3. [id number] 1983 Unknown [id number] 2.16.840.1.934294.3.579.2.174 1983 Unknown [id number] 2.16.840.1.251569.3.579.2.174 1983 Unknown [id number] 2.16.840.1.968929.3.579.2.175 1983 Unknown [id number] 2.16.840.1.765602.3.579.2.593 1983 Unknown [id number] 2.16.840.1.735812.3.579.2.593 1983 Unknown [id number] 2.16.840.1.327532.3.579.2.593 1983 Unknown [id number] 2.16.840.1.792881.3.579.2.593 1983 Unknown [id number] 2.16.840.1.572415.3.579.2.593 1983 Unknown [id number] 2.16.840.1.537007.3.579.2.593 1983 Unknown [id number] 2.16.840.1.591149.3.579.2.593 1983 Unknown [id number] 2.16.840.1.582222.3.579.2.593 1983 Unknown [id number] 2.16.840.1.366371.3.579.2.593 1983 Unknown [id number] 2.16.840.1.592375.3.579.2.593 1983 Unknown [id number] 2.16.840.1.660144.3.579.2.593 1983 Unknown [id number] 2.16.840.1.867861.3.579.2.593 1983 Unknown [id number] 2.16.840.1.889526.3.579.2.173 1983 Unknown [id number] 2.16.840.1.823302.3.579.2.173 1983 Unknown [id number] 2.16.840.1.614287.3.579.2.173 1983 Unknown [id number] 2.16.840.1.503330.3.579.2.173 1983 Unknown [id number] 2.16.840.1.041818.3.579.2.173 1983 Unknown [id number] 2.16.840.1.177826.3.579.2.173 1983 Unknown [id number] 2.16.840.1.249639.3.579.2.727 1983 Unknown [id number] 2.16.840.1.103247.3.579.2.727 1983 Unknown [id number] 2.16.840.1.400189.3.579.2.727 1983 Unknown [id number] 2.16.840.1.563755.3.579.2.727 1983 Unknown [id number] 2.16.840.1.559118.3.579.2.727 1983 Unknown [id number] 2.16.840.1.000421.3.579.2.727 1983 Unknown [id number] 2.16.840.1.973825.3.579.2.196 1983 Unknown [id number] 2.16.840.1.167091.3.579.2.196 1983 Unknown [id number] 2.16.840.1.756147.3.579.2.196 1983 Unknown [id number] 2.16.840.1.590278.3.579.2.196 1983 Unknown [id number] 2.16.840.1.474388.3.579.2.196 1983 Unknown [id number] 2.16.840.1.103335.3.579.2.1259 1983 Unknown [id number] 2.16.840.1.530691.3.579.2.1259 1983 Unknown [id number] 2.16.840.1.818886.3.579.2.1286 1959 Unknown [id number] 1.2.840.048887.1.13.239.2.7.3. [id number] 1959 Unknown [id number] 1.2.840.400701.1.13.239.2.7.3. 318088.315 Social History Date Type Detail Facility Start: 06-13-2020 End: 04-10-2022 Tobacco smoking status [facility] Never smoker [employer] Phone: Start: 06-13-2020 End: 01-10-2022 Alcohol intake Current non-drinker of alcohol (finding) [employer] Phone: Start: 1985 Sex Assigned At Not on file [employer] Phone: Start: 05-10-2021 End: 01-30-2022 Exposure to SARS-CoV-2 (event) Not sure [facility] Start: 08-30-2020 End: 04-10-2022 Tobacco use and exposure Never used [facility] Start: 05-24-2021 End: 07-01-2021 Alcohol intake Current drinker of alcohol (finding) [facility] Start: 02-23-2014 History SDOH Alcohol Comment rarely uses alcohol [facility] Start: 1985 Sex Assigned At Female [facility] Start: 07-22-2021 End: 05-08-2023 Alcohol intake Ex-drinker (finding) [facility] Start: 09-17-2021 End: 09-27-2021 Exposure to SARS-CoV-2 (event) Unable to assess [facility] History of tobacco use Passive smoker [facility] Tobacco smoking status Never [facility] Start: 03-18-2020 End: 10-02-2022 Sex Assigned At Female [facility] Start: 03-18-2020 End: 10-02-2022 History of Social function [facility] Start: 09-26-2020 Gender identity Identifies as female gender (finding) [facility] Start: 09-26-2020 Sexual orientation Heterosexual (finding) [facility] Start: 01-16-2023 Alcohol intake Lifetime non-drinker (finding) [facility] Functional Status Date Assessment Result Facility 09-05-2022 Functional Status N/A [facility] 02-28-2022 Functional Status N/A [facility] 01-20-2022 Functional Status N/A [facility] 2021 Functional Status N/A [facility] Clinical Notes 09-06-2020 to 05-08-2023 Sarah Best, LIO-MANAGED SERVICES CONSULTANT - 05/08/2023 8:45 AM EDTPatient InstructionsAbFuentes abbott MD - 10/02/2022 9:45 AM EDTTelephone Encounter - Yury CollinsALIZE - 05/03/2022 11:43 AM EDTAttachments Note Date & Type Note Facility 05-08-2023 History of Present illness Narrative REASON FOR VISIT: Leana Tran is seen in follow-up today for Hypothyroidism. HPI: Patient last seen in clinic on 10/12/22. She notes she is more tired. She is following a gluten free diet, so eating healthier. She was positive for celiac antibodies. She feels sick if eating gluten(rash, diarrhea, abdominal pain). She notes dry skin, brittle nails. Her feet feel very cold, but sweats in the rest of her body. 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 She had thyroid labs drawn 10/06/22-TSH 4.255, fT4 0.99, fT3 2.48 She has been to referred to [facility] for symptoms from COVID-19. Dizzy and lightheaded at times. Still some drops in her blood pressure at times. She is on Zonegran to help her sleep. She had a sleep study showing sleep apnea. She has seen pulmonology and has a bipap. She is also seen Cardiology and found to have autonomic dysfunction. Wearing compression socks and drinking lots of fluids. She is taking mestinon. Currently taking Synthroid (MIKE) 100 mcg daily, on an empty stomach, first thing in the morning, without other medications. She initially noticed improvement with this, but feeling worse in the last 2 months. Thyroid ultrasound 01/16/19: Heterogenous thyroid, questionable hypoechoic nodule 8x5x3 mm on the right Excessive sweating: admits Heat intolerance: denies Cold intolerance: admits Dry skin: admits Tremor: denies Excess anxiety: denies Tachycardia: denies Palpitations: denies Constipation: denies Excessive bowel movements: denies Fatigue: admits Hair loss: admits Eye pressure: denies Dry/gritty eyes: denies Anterior neck swelling/pressure: denies Difficulty swallowing: denies LABS: 10/06/22: TSH 4.255, fT3 2.48 06/05/22: TSH 1.41, fT4 0.89 04/07/22: TSH 0.356, free T4 1.29 02/17/22: TSH 0.08, free T4 1.34 TSH Date Value Ref Range Status 08/18/2021 0.70 0.49 - 4.67 uIU/mL Final 04/22/2020 1.18 0.49 - 4.67 uIU/mL Final 03/13/2019 0.17 (L) 0.49 - 4.67 uIU/mL Final T4, free Date Value Ref Range Status 08/18/2021 0.79 0.61 - 1.60 ng/dL Final 04/22/2020 0.92 0.61 - 1.60 ng/dL Final 03/13/2019 1.06 0.61 - 1.60 ng/dL Final T3, free Date Value Ref Range Status 03/13/2019 3.51 2.50 - 3.90 pg/mL Final ROS: 12 point ROS completed, negative unless noted in HPI CURRENT MEDICATIONS Current Outpatient Medications: albuterol (PROVENTIL HFA;VENTOLIN HFA) 90 mcg/actuation inhaler, every 4 (four) hours., Disp: , Rfl: azelastine (ASTELIN) 137 mcg (0.1 %) nasal spray, Administer 1 spray into each nostril in the morning and 1 spray before bedtime. Use in each nostril as directed., Disp: 30 mL, Rfl: 12 baclofen (LIORESAL) 10 mg tablet, TAKE 1 TO 2 TABLETS BY MOUTH NIGHTLY, Disp: 60 tablet, Rfl: 5 cholecalciferol, vitamin D3, (VITAMIN D3 ORAL), Take 1 capsule by mouth., Disp: , Rfl: cyanocobalamin (VITAMIN B12) 1,000 mcg tablet, sublingual, Place 1 tablet (1,000 mcg total) under the tongue in the morning., Disp: 30 tablet, Rfl: 11 diphenhydrAMINE (BENADRYL) 25 mg capsule, Take by mouth every 6 (six) hours as needed., Disp: , Rfl: DULoxetine (CYMBALTA) 60 mg capsule, Take 1 capsule (60 mg total) by mouth nightly., Disp: , Rfl: EPINEPHrine (EPIPEN) 0.3 mg/0.3 mL auto-injector, INJECT 0.3 MLS INTO THE MUSCLE ONCE NEEDED (SEVERE ALLERGIC REACTION), Disp: , Rfl: fluticasone (VERAMYST) 27.5 mcg/actuation nasal spray, Administer 2 sprays into each nostril once daily., Disp: , Rfl: fremanezumab-vfrm (AJOVY 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) 225 mg/1.5 mL, Inject 1.5 mL (225 mg total) under the skin every 28 days., Disp: 4.5 mL, Rfl: 0 lamoTRIgine (LaMICtal) 150 mg tablet, Take 1 tablet (150 mg total) by mouth once daily at bedtime., Disp: , Rfl: levocetirizine (XYZAL) 5 mg tablet, Take 1 tablet (5 mg total) by mouth every evening., Disp: , Rfl: magnesium 250 mg tablet, Take 1 tablet (250 mg total) by mouth., Disp: , Rfl: montelukast (SINGULAIR) 10 mg tablet, Take 1 tablet (10 mg total) by mouth in the morning., Disp: , Rfl: ondansetron ODT (ZOFRAN ODT) 4 mg disintegrating tablet, 1 (ONE) TABLET BY MOUTH EVERY SIX HOURS, NEEDED, Disp: , Rfl: pantoprazole (PROTONIX) 40 mg EC tablet, Take by mouth daily., Disp: , Rfl: pyridostigmine (MESTINON) 60 mg tablet, Take 1 tablet (60 mg total) by mouth., Disp: , Rfl: rimegepant (NURTEC ODT) 75 mg tablet,disintegrating, Dissolve 1 tablet on tongue as needed (migraine)., Disp: 8 tablet, Rfl: 11 sertraline (ZOLOFT) 100 mg tablet, Take 0.5 tablets (50 mg total) by mouth in the morning., Disp: , Rfl: SITagliptin (JANUVIA) 100 mg tablet, Take 1 tablet (100 mg total) by mouth in the morning. Only when sugar is over 140., Disp: , Rfl: SYMBICORT 160-4.5 mcg/actuation inhaler, TAKE 2 PUFFS BY MOUTH TWICE A DAY, Disp: , Rfl: SYNTHROID 100 mcg tablet, Take 1 tablet (100 mcg total) by mouth in the morning., Disp: 90 tablet, Rfl: 3 UBRELVY 100 mg tablet, Take 100 mg by mouth once as needed (migraine) for up to 1 dose., Disp: 16 tablet, Rfl: 12 zonisamide (ZONEGRAN) 100 mg capsule, TAKE 1 CAPSULE (100 MG TOTAL) BY MOUTH DAILY BEFORE EVENING MEAL., Disp: 90 capsule, Rfl: 1 PAST MEDICAL HISTORY: Past Medical History: Diagnosis Date Allergic 1991 Allergic rhinitis 1990 Anxiety Asthma Back pain 1995 Bradycardia Chest pain Clotting disorder ([facility] 1984 COVID Depression Diabetes mellitus ([facility]) Diabetes mellitus type 2, controlled ([facility]) Eczema 2006 Elevated troponin Fatty liver GERD (gastroesophageal reflux disease) HL (hearing loss) bilateraly hearing aids Hypothyroidism Migraines Obesity 2018 KATELIN (obstructive sleep apnea) Plasma protein disorder Pneumonia ? 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 VITALS Wt Readings from Last 3 Encounters: 05/08/23 97.5 kg (215 lb) 01/04/23 99.8 kg (220 lb) 10/12/22 100.9 kg (222 lb 6.4 oz) Body mass index is 36.9 kg/m . Vitals: 05/08/23 0847 BP: 134/87 Pulse: 63 Weight: 97.5 kg (215 lb) PHYSICAL EXAM: Physical Exam Vitals reviewed. Constitutional: General: She is not in acute distress. Appearance: She is well-developed and well-groomed. HENT: Head: Normocephalic and atraumatic. Neck: Thyroid: No thyroid mass, thyromegaly or thyroid tenderness. Trachea: Trachea normal. Cardiovascular: Rate and Rhythm: Normal rate. Pulses: Normal pulses. Heart sounds: Normal heart sounds. Pulmonary: Effort: Pulmonary effort is normal. Musculoskeletal: General: No tenderness. Normal range of motion. Cervical back: Neck supple. Skin: General: Skin is warm and dry. Neurological: General: No focal deficit present. Mental Status: She is alert and oriented to person, place, and time. Gait: Gait is intact. Deep Tendon Reflexes: Reflexes are normal and symmetric. Psychiatric: Mood and Affect: Mood normal. Speech: Speech normal. Thought Content: Thought content normal. PLAN: 1. 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 Hx Cesar autoimmune thyroid disease, celiac disease. 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 I saw Leana in follow up November 2022. After this, URI in November and December 2022 she had a upper respiratory infection. BP dropped to 80/40mmhg. But recently BP is stable. In December she experienced an episode of chest pain associated with cough and went to [facility] (12/18/2022). She was treated for bronchitis. She has history of asthma. She saw Angelika Coronel APRN in the [facility] as an ED follow up on 12/26/2022. At that visit she complained of dizziness, near syncope and sharp left CP radiation to shoulder. Chief Complaint: Orthostatic intolerance. Dizziness and lightheaded. 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 Last [...] diagnosis was Autonomic dysfunction. 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 Problem List Items Addressed This Visit Nervous Autonomic dysfunction Relevant Medications pyridostigmine (Mestinon) 180 mg ER tablet Orthostatic intolerance Relevant Orders Ambulatory referral to Physical Therapy Circulatory Implantable loop recorder present Other Chronic ioaq-GAKNM-34 syndrome Other Visit Diagnoses Postural dizziness with near syncope - Primary Relevant Orders Ambulatory referral to Physical Therapy OI exacerbation post back to back respiratory infections. Stop short acting pyridostigmine. Add TS 180 mg daily. Physical therapy. Monitor HR and BP RTC 6-12 months. [facility] 01-04-2023 Note Chief Complaint consultation for GERD HPI Staff 37 year old female presents on consultation from Dr. Dowell for GERD. Taking Protonix 40mg daily x 6 months. Reports some sternal chest pain, bloating and sour taste in mouth. 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 Reports EGD greater than 10 years ago with gastric ulcer and H.pylori infection. History of Present Illness 37 yo female with h/o DMII, asthma, hypothyroidism, KATELIN, anxiety/depression; referred for worsening GERD; patient reports frequent bloating and epigastric pain radiating into chest, some regurgitation; no dysphagia; sees a Quality Rn that feels her frequent lung infections are [...] 50 mcg/inh madeline (more content not included)... [facility] Comment on above: Result Comment: Elec tronically Signed By: MARLON PEREZ, Tesfaye Almonte\lauren\Date and Time Signed: 01/04/23 11:41 EST 01-01-2023 Note [facility] Consult Note Reason for visit: s/p loop insertion for syncope, hospital follow up for CP / cough 01/01/23: patient for follow-up, she been having symptoms of postural dizziness with near syncope she has history of dysautonomia typically sees her dysautonomia clinic she was recently seen at [facility] for chest pain loop monitor has not [...] the Heart and Vascular Center at the [facility] for an evaluation of autonomic dysfunction. [...] told needed a PPM . Transferred to [facility] and saw Dr. Michaud, licensing engineer. Echocardiogram done (?inflammation). Discharged. Referred by Covid Clinic at [facility]. Told had autonomic issues PMH: Past Medical History: Diagnosis Date Asthma 1999 Clotting disorder ([facility]) 1983 Diabetes mellitus ([facility]) 2020 Disease of thyroid gland 2006 [...] Estradiol Chest hurt (more content not included)... [facility] 01-01-2023 Note Patient here for [facility] ED 2 weeks ago for chest pain. [...] All other systems reviewed and are negative. 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 Hx Cesar autoimmune thyroid disease. 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 She failed bupropion. We then added pyridostigmine in July. Chief Complaint: Improved on pyridostigmine. Improved strength. No nausea or diarrhea. Less dizziness. No syncope. Some near syncope. 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 No sustained palpitations. [...] diagnosis was Autonomic dysfunction. Diagnoses of Chronic fohq-DSLVM-65 syndrome and Syncope and collapse were also pertinent to this visit. Date of Telehealth Visit: The patient was notified that using 3rd republican telecommunication application (e.g., [employer]) is not HIPPA compliant and may carry some privacy risks. The visit was conducted rmok-rl-rsxk with the use of audio and video [...] to pyridostigmine without ill effects 2. Chronic nign-USUCW-09 syndrome 3. Syncope and collapse No syncope Continue to monitor with ILR. Discussed use of symptom recordings to help identify any rhythm associated with her symptoms RTC yearly [facility] 10-02-2022 Note HNO ID: [id number] Author: Fuentes Amaral MD Service: ? Author [...] arms. Figers an (more content not included)... [facility] 10-02-2022 Instructions Fuentes Amaral MD - 10/02/2022 9:51 AM EDT Continue Amicar prior to dentist appointment. 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 Fuentes Amaral MD, CPE Hematology and Oncology Services Provided at: [place], [place] CC: Cas Cronin documented in this encounter [facility] 09-05-2022 Hospital Discharge instructions Patient Education 09/05/2022 09:06:17 Kidney Stones, Tedz-ru-Lcrg Kidney Stones Kidney stones are rock-like masses [...] Follow these instructions at home: Medicines Take itun-gjp-npbpjpt and prescription medicines only as told by [...] provider. Document Revised: 09/26/2021 Document Reviewed: 09/26/2021 [employer] Patient Education 2022 [employer] ([employer]). Follow Up Care 02/28/2022 09:04:41 With:LORAINE RUBALCAVA PA-C, URL Address: [address] 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 Post Covid POTS. 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 We evaluated her as a new patient [...] diagnosis was Autonomic dysfunction. Diagnoses of Chronic wgzv-RCQSC-30 syndrome, Orthostatic intolerance, Celiac disease, and Implantable loop recorder present were also pertinent to this visit. Problem List Items Addressed This Visit Nervous Autonomic dysfunction - Primary Relevant Medications pyridostigmine (Mestinon) 60 mg tablet Orthostatic intolerance Circulatory Implantable loop recorder present Other Chronic xusq-DBSMI-34 syndrome Other Visit Diagnoses Celiac disease Pyridostigmine. [...] if they experience sudden episodes of hypotension. [facility] 07-04-2022 Note [facility] Consult Note Reason for visit: check [...] the Heart and Vascular Center at the [facility] for an evaluation of autonomic dysfunction. [...] told needed a PPM . Transferred to [facility] and saw Dr. Michaud, licensing engineer. Echocardiogram done (?inflammation). Discharged. Referred by Covid Clinic at [facility]. Told had autonomic issues PMH: No past [...] incidence of candid (more content not included)... [facility] 07-04-2022 Note Patient here for wou nd check s/p loop recorder insertion on 06/27/[address] Cronin. [facility] 06-27-2022 Note LOOP IMPLANT PROCEDU RE NOTE DATE OF PROCEDURE: 06/27/22 PERFORMING PHYSICIAN: Dr. Stephon Cronin OVERLAY OPERATOR: INDICATIONS FOR PROCEDURE: CONSENT: Patient LOCATION: EP [...] 7 days. Stephon Cronin MD Cardiac Electrophysiology. [facility] 06-27-2022 Note Patient: Leana rios Procedure Information Date/Time: 06/27/22829 Procedure: Loop insertion Location: [facility] BOILER OPERATOR HELPER 1 / [facility] (Cath) Providers: Stephon [...] discussed with patient who. 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 [...] told needed a PPM . Transferred to [facility] and saw Dr. Michaud, licensing engineer. Echocardiogram done (?inflammation). Discharged. Referred by [facility] at [facility]. Told had autonomic issues Seen at [facility] 2021: Head upright tilt. No 'POTS . Non diagnostic. Possible autonomic dysfunction. Recurrent lung infections since Covid. Found bleeding disorder at [facility]. No medication. Review of Systems Constitutional: [...] node swelling. Chest. Has followup, follows with STATION INSTALLER Objective Physical Exam Assessment/Plan The primary encounter [...] currently enrolling pa (more content not included)... [facility] 05-03-2022 Miscellaneous Notes Images from the original note were not included. documented in this encounter [facility] 04-26-2022 Note HNO ID: [id number] Author: Bhargavi Saldana PA-C Service: ? Author Type: Physician Needle Grinder Type: Progress Notes Filed: 04/26/2022 1:17 PM Note Text: Headache Center - Follow up Virtual Visit During this COVID-19 pandemic, patient's headache clinic evaluation was scheduled as a virtual visit using the following platform Zoom - patient currently located in [facility] was identified by name and and consented [...] visit. Either the patient or their legal advertising account representative has been informed of the risks [...] Hypothyroid IBS (i (more content not included)... [facility] 04-26-2022 History of Present illness Narrative Headache Center - Follow up Virtual Visit During this COVID-19 pandemic, patient's headache clinic evaluation was scheduled as a virtual visit using the following platform Zoom - patient currently located in [place] Leana Tran was identified by name and [...] visit. Either the patient or their legal advertising account representative has been informed of the risks [...] thrombosis. Unremarkable MRA brain and MRA neck. Performance Instructor: ROBER Transcribe Date/Time: Mar 31 2016 2:40P [...] change which could potentially contribute to headache. Performance Instructor: [facility] Transcribe Date/Time: Jun 27 2021 3:07P Dictated [...] # 1.10 - 3.70 k/uL 1.67 Absolute [place] # 0.10 - 1.20 k/uL 0.37 Absolute Eos # 0.00 - 0.44 k/uL 0.19 Basophils Absolute 0.00 - 0.20 k/uL 0.04 Absolute Immature Granulocyte 0.00 - 0.30 k/uL 0.04 Review of Systems: Review of system: unchanged from the previous visit (sleep patterns, mood, energy, appetite, stress, exercising). Physical Examination: Vital Signs: [facility] 2015 General: well appearing, in no acute distress, alert Pain Behaviors: no pain behaviors observed Neurological: Mental Status: Alert and oriented to person, place and time. Affect is normal. Speech is spontaneous and fluent without dysarthria. Short and fdc memory, cognition and general fund of knowledge [...] Sumavel) GEPANTS Ubrogepant (Ubrelvy) Rimegepant (Nurtec) Leana S Marc has been previously approved for an Oral [...] 15 minutes Bhargavi Saldana PA-C Headache Section [facility] April 26, 2022 documented in this encounter [facility] 04-17-2022 Note HNO ID: [id number] Author: Fuentes Amaral MD Service: ? Author [...] Time Spent: 5 minutes Fuentes Amaral MD [facility] 04-17-2022 Instructions Fuentes Amaral MD - 04/17/2022 5:31 PM EDT Keep prior appointment September documented in this encounter [facility] 04-17-2022 History of Present illness Narrative AMBULATORY [...] Fuentes Amaral MD documented in this encounter [facility] 04-10-2022 Note HNO ID: [id number] Author: Meena Grissom MD Service: ? Author Type: Physician Type: Progress Notes Filed: 04/11/2022 3:50 PM Note Text: [facility] Sleep Disorders Center Virtual Visit Follow up/ Established patient visit Date of last visit : 11/16/2021 Interval history : Here for follow up for KATELIN and restless legs She had recent hospitalization at [facility], was advised to switch to bilevel she [...] or near accidents due to drowsy drivin [place] Sleepiness Scale 11/13/2021 04/09/2022 Score 7 (No [...] mg tabletTake 10- (more content not included)... [facility] 04-03-2022 Note HNO ID: [id number] Author: Fuentes Amaral MD Service: ? Author [...] rashes Breaking ou (more content not included)... [facility] 04-03-2022 Instructions Fuentes Amaral MD - 04/03/2022 11:06 AM EST Platelet electron microscopy pending drawn Call results when available - anticipate 2 weeks Consider functional medicine referral for DM and PCOS Keep appointment with Dr. Stephon Cronin's group for POTS Trial of Amicar prior to dentist appointment. 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 Fuentes Amaral MD, [facility] Hematology and Oncology Services Provided at: [place], [place] CC: Cas Cronin documented in this encounter [facility] 04-03-2022 Nurse Note Patient is still bruising. Elizabeth Rodriges MA documented in this encounter [facility] 04-03-2022 Miscellaneous Notes Images from the original note were not included. documented in this encounter [facility] 03-21-2022 Miscellaneous Notes Received call from pt stating she was not able to get her PLT lab test done in [place] d/t them no longer doing them on or fridays so she needs to move out her appt with Dr Salas so she has time to try again to get lab done. Pt transferred to medical front desk specialist to reschedule f/u appt. Yancy Cook RN documented in this encounter [facility] 02-28-2022 Hospital Discharge instructions Patient Education 02/28/2022 [...] reconstructed. Follow these instructions at home: Take cwil-jin-hboeclr and prescription medicines only as told by [...] 02/18/2016 Document Revised: 09/04/2018 Document Reviewed: 09/04/2018 [employer] Patient Education 2020 [employer] ([employer]). Follow Up Care 12/22/2021 14:08:59 With:LORAINE RUBALCAVA PA-C, URL Address: [address] [place] [address] When: Unknown [facility] Jim 02-27-2022 Note HNO ID: [id number] Author: Tesfaye Whitman RPh Service: ? Author Type: Pharmacist Type: Progress Notes Filed: 02/27/2022 10:33 AM Note Text: Refill Authorization Consent Leana Tran was encountered by text or mychart message to obtain consent for pharmacist managed refill authorization. Patient gives consent to the authorization of prescriptions by a pharmacist. Tesfaye Whitman RPh 02/27/2022 [facility] 02-27-2022 History of Present illness Narrative Refill Authorization Consent Leana Tran was encountered by text or mychart message to obtain consent for pharmacist managed refill authorization. Patient gives consent to the authorization of prescriptions by a pharmacist. Tesfaye Whitman RPh 02/27/2022 documented in this encounter [facility] 02-24-2022 Miscellaneous Notes PA submitted via covermymeds. Kurt TRAN ([place]: [id number]) Your information has been submitted to [facility]. To check for an updated outcome later, reopen this PA request from your dashboard. If [facility] has not responded to your request within 24 hours, contact [facility] at . If you think there may be a problem with your PA request, use our live chat feature at the bottom right. Vikash Oreilly RN February 24, 2022 3:16 PM documented in this encounter [facility] 02-20-2022 Miscellaneous Notes Ok with me Informed Lindsey of Dr Salas's response. Lindsey states that [facility] will only except if pt was drawn on and pt was drawn on Sunday so they are sending it out today to [place], unless Dr Salas would like pt to come back in for a redraw so it can be sent to [facility]. Yancy Cook RN [place] would be good. Received call from Melodie at [facility] in [place] stating pt had her platelet transmission lab done there but it is a lab test that they send out to other labs and they wanted to know if Dr Salas has a preference on what lab they send it to d/t different labs running the test different ways. ZACH: Please advise. Yancy Cook RN documented in this encounter [facility] 02-17-2022 Miscellaneous Notes Records faxed to Dr. Cronin. Pt would like referral sent to Stephon Cronin MD @ [facility]. Lauren, will you please fax records when order is signed? Demo in your box, thanks! PSS: Please set pt up with referral to her preferred licensing engineer. Thank you. Yancy Cook RN Received call from pt stating Dr Salas told her to see licensing engineer but their office needs a referral. ZACH: Order pending, please review and sign. Yancy Cook RN documented in this encounter [facility] 02-13-2022 Note HNO ID: [id number] Author: Meena Grissom MD Service: ? Author Type: Physician Type: Progress Notes Filed: 02/13/2022 8:31 PM Note Text: Discussed with scheduling, appointment will be rescheduled. Patient logged in late- had technical issues with Zoom. [facility] 02-13-2022 History of Present illness Narrative Discussed with scheduling, appointment will be rescheduled. Patient logged in late- had technical issues with Zoom. documented in this encounter [facility] 02-10-2022 Note HNO ID: [id number] Author: Fuentes Amaral MD Service: ? Author [...] despite hysterectomy causin (more content not included)... 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 Fuentes Amaral MD, CPE Hematology and Oncology Services Provided at: [facility], [place], [place] CC: Cas Nicolecarley documented in this encounter [facility] 02-01-2022 Miscellaneous Notes Images from the original note were not included. documented in this encounter [facility] 01-23-2022 Hospital Discharge instructions Patient Education 01/23/2022 [...] Up Care 12/22/2021 14:21:18 With:LORAINE RUBALCAVA Address: [address] [place] [address]. [place] [address] Business (1) When:6 weeks Comments:Call for followup appointment in about six weeks. As discussed, PONCE Hargrove can further follow up on the left kidney abnormality noted on the kidney ultrasound. 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 [facility] 01-16-2022 Note HNO ID: [id number] Author: Bhargavi Saldana PA-C Service: ? Author Type: Physician Needle Grinder Type: Progress Notes Filed: 01/16/2022 8:58 AM Note Text: Headache Center - Follow up Virtual Visit During this COVID-19 pandemic, patient's headache clinic evaluation was scheduled as a virtual visit using the following platform Zoom - patient currently located in [place] Leana Tran was identified by name and [...] migraine headache days/month: 4 Migraine headache severity: 08/14 Number of NON-migraine headache days/month: 16 Number [...] Palpitations Platelet di (more content not included)... [facility] 01-16-2022 History of Present illness Narrative Headache Center - Follow up Virtual Visit During this COVID-19 pandemic, patient's headache clinic evaluation was scheduled as a virtual visit using the following platform Zoom - patient currently located in [place] Leana Tran was identified by name and [...] thrombosis. Unremarkable MRA brain and MRA neck. Performance Instructor: [facility] Transcribe Date/Time: Mar 31 2016 2:40P Dictated [...] change which could potentially contribute to headache. Performance Instructor: [facility] Transcribe Date/Time: Jun 27 2021 3:07P Dictated [...] spontaneous and fluent without dysarthria. Short and advertising account representative memory, cognition and general fund of knowledge [...] 10 minutes Bhargavi Saldana PA-C Headache Section [facility] January 16, 2022 documented in this encounter [facility] 01-02-2022 Note HNO ID: [id number] Author: Jenny Borden Service: ? Author Type: ? Type: Progress Notes Filed: 01/02/2022 4:24 AM Note Text: Sleep Study Check-In Documentation Date: January 02, 2022 Name: Leana Tran Patient was accompanied by Self. Location: [place] Latex allergy: Yes Tape allergy: No Current medications were reviewed with the patient:Yes Sleep aid taken by patient for the sleep study: [place] of sleep aid: Not Applicable Procedure was explained to the patient and all questions were answered. PAP treatment discussed and shown to patient: Yes If PAP used enter mask info: n/a Chin Sharp Used No --------- Knowledge Program (KP): KP was not completed in [facility] by patient and accepted Study type: Polysomnogram Adverse Event: No (If yes create a new abstract) SERS Event: No Comments: Patient was advised to follow up with their ordering provider regarding test results Jenny Borden [facility] 01-02-2022 History of Present illness Narrative Sleep Study Check-In Documentation Date: January 02, 2022 Name: Leana Tran Patient was accompanied by Self. Location: [place] Latex allergy: Yes Tape allergy: No Current medications were reviewed with the patient:Yes Sleep aid taken by patient for the sleep study: [place] of sleep aid: Not Applicable Procedure was explained to the patient and all questions were answered. PAP treatment discussed and shown to patient: Yes If PAP used enter mask info: n/a Chin Sharp Used No Knowledge Program (KP): KP was not completed in [facility] by patient and accepted Study type: Polysomnogram Adverse Event: No (If yes create a new abstract) SERS Event: No Comments: Patient was advised to follow up with their ordering provider regarding test results Jenny Borden documented in this encounter [facility] 2021 Evaluation + Plan note Diagnostic Tests PendingUrine Cytology ([facility]) 12/21/21 [facility] Jim 2021 Hospital Discharge instructions Patient Education 2021 [...] Follow these instructions at home: Medicines Take ukgi-fms-knabsgc and prescription medicines only as told by [...] or the blood stops without treatment. Take lxvp-byg-tsmyiin and prescription medicines only as told by your health care provider. Drink enough fluid to keep your urine clear or pale yellow. This information is not intended to replace advice given to you by your health care provider. Make sure you discuss any questions you have with your health care provider. Document Released: 01/22/2006 Document Revised: 06/18/2019 Document Reviewed: 02/24/2017 [employer] Patient Education 2020 [employer] (ZEEP). Follow Up Care 11/28/2021 10:05:42 With:[facility] Address: [facility] [address] [place] [address] Business (1) When: Unknown Comments:our agricultural chemist will be contacting you for follow-up [facility] Jim 12-20-2021 Miscellaneous Notes Results left on patient voicemail. Leana Tran's bleeding disorders panel through [facility] was non-diagnostic or negative for a pathogenic variant. 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 This is a common polymorphism in the general population present in ~10% of individuals of white ancestry and ~1/3 of those of South ancestry. This polymorphism is not expected to contribute to disease risk for the patient. Please see [employer] message for further discussion. CARINE Carrillo Licensed, Certified Genetic Counselor Epic CC: Dr. Fuentes Craig documented in this encounter [facility] 12-15-2021 Note HNO ID: [id number] Author: Keira Harper Service: ? Author Type: ? Type: Progress Notes Filed: 01/03/2022 2:00 PM Note Text: ACTIGRAPHY DEVICE # [id number] Date shipped out 12/15/2021 [employer] MAIL OUT TRACKING NUMBER [id number] [employer] RETURN TRACKING NUMBER [id number], Amber [facility] 12-15-2021 History of Present illness Narrative ACTIGRAPHY DEVICE # [id number] Date shipped out 12/15/2021 [employer] MAIL OUT TRACKING NUMBER [id number] [employer] RETURN TRACKING NUMBER [id number] 4033 [id number], Amber documented in this encounter [facility] 12-02-2021 Note HNO ID: [id number] Author: fOelia Nelson Service: ? Author Type: ? Type: [...] Ofelia Allen RN Procedure Finish Time: 933 [facility] 12-02-2021 History of Present illness [...] Finish Time: 933 documented in this encounter [facility] 12-01-2021 Miscellaneous Notes Attempted to contact the patient. Left voice message. Filomena MARIE ----- Message from Micheal Perez MD sent at 11/30/2021 8:33 PM EDT ----- Regarding: Event monitor results. Please call with results. Micheal Perez MD November 30, 2021 8:33 PM documented in this encounter [facility] 11-18-2021 Note HNO ID: [id number] Author: Fuentes Amaral MD Service: ? 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 Her step-father has also . Updated Visit, November 10, 2021: Leana is 35 yo and is having genetic testing done to ascertain a sera (more content not included)... [facility] 11-18-2021 Instructions Fuentes Amaral MD - 11/18/2021 2:09 PM EDT 1. RTC and Repeat exam in 3 months - no labs 2. Review platelet genetics on return. documented in this encounter [facility] 11-18-2021 History of Present illness Narrative Images from the original note were not included. 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 Fuentes Amaral MD, CPE Hematology and Oncology Services Provided at: [place], [place] CC: Cas Dowell documented in this encounter [facility] 11-16-2021 Instructions Meena Grissom MD - 11/16/2021 [...] depending on your insurance coverage. Contact your [employer] company for new supplies as needed. Encouraged increased CPAP compliance -PAP titration polysomnogram requested to assess optimum PAP therapy for KATELIN -PAP nap procedure requested to help address mask interface issues To schedule your sleep study please call the [facility] at [phone]. The [phone] phone number will be answered by the [...] If you work rotating shifts, ask your manager of applications development to schedule a natural, clockwise rotation. This [...] A longer nap before reporting for a packager hand is also beneficial. Exposure to bright light on the job can improve alertness during packager hand work. Arrange for someone to pick you up after a packager hand, or take a bus or cab home. [...] for insomnia. The cost is $40. Use www.[employer] which to access the [facility] website to purchase the program [...] provider and give them the CPT code: 32881 You will be asked to wear the [...] about your actigraphy device, please call the audio technician at: [phone] ( During Hours: 8am-4:30pm) ? -Discussed pathophysiology of Sleep paralysis, and possible triggering factors which include sleep deprivation, untreated obstructive sleep apnea. Other possible etiologies include circadian shift work,anxiety disorders and medications. - Follow up in 2 months documented in this encounter [facility] 11-16-2021 Miscellaneous Notes Images from the original note were not included. Images from the original note were not included. documented in this encounter [facility] 11-16-2021 Note HNO ID: [id number] Author: Meena Grissom MD Service: ? Author Type: Physician Type: Progress Notes Filed: 11/16/2021 2:37 PM Note Text: [facility] New Patient Evaluation [...] on CPAP , her physician is at [facility]. Has a Resmed device, uses it [...] or near accidents due to drowsy drivin [place] Sleepiness Scale 11/13/2021 Score 7 (No daytime [...] 50. Five p (more content not included)... [facility] 11-16-2021 History of Present illness Narrative Images from the original note were not included. [facility] New Patient Evaluation [...] on CPAP , her physician is at [facility]. Has a Resmed device, uses it [...] or near accidents due to drowsy drivin [place] Sleepiness Scale 11/13/2021 Score 7 (No daytime [...] (Discontinued) PRIOR SLEEP STUDIES: Sleep centre at [place] (report not available at time of consultation) [...] HX 2010 REMOVAL GALLBLADDER TUBAL LIGATION HX ACTIVE PROBLEM [...] uncontrolled Hypertension Mother Heart Attack Mother First [place] at age 51 Cardiomyopathy Mother at age [...] If you work rotating shifts, ask your manager of applications development to schedule a natural, clockwise rotation. This [...] A longer nap before reporting for a packager hand is also beneficial. Exposure to bright light on the job can improve alertness during packager hand work. Arrange for someone to pick you up after a packager hand, or take a bus or cab home. [...] for insomnia. The cost is $40. Use www.[employer] which to access the [facility] website to purchase the program [...] but not within 4 hours of bedtime. [facility] on 11/16/21 ACTIGRAPHY TESTING PAP NAP PSG (CPAP, BILEVEL, ASV) PAP TITRATION PSG (CPAP, BIPAP, ASV) FERRITIN BLD IRON + TIBC Meena Grissom MD I spent a total of 50 minutes on the date of the service which included preparing to see the patient, zphg-bk-xfrz patient care, performing a medically appropriate examination, counseling and educating the patient/family/caregiver and ordering medications/devices. documented in this encounter [facility] 11-15-2021 Miscellaneous Notes Images from the original note were not included. documented in this encounter [facility] 11-12-2021 Note HNO ID: [id number] Author: Fuentes Amaral MD Service: ? Author [...] Time Spent: 10 minutes Fuentes Amaral MD [facility] 11-12-2021 History of Present illness [...] Fuentes Amaral MD documented in this encounter [facility] 11-07-2021 Miscellaneous Notes Order [facility] nebulizer supplies [facility]. Call to them inquiring about any additional information they may need. Landen Clark APRN.CNP documented in this encounter [facility] 11-07-2021 Miscellaneous Notes Contacted Efreno. Order has not been received. Discussed with Javier from [facility] lab. Order is currently being processed. Filomena RN documented in this encounter [facility] 11-03-2021 Note HNO ID: [id number] Author: Fuentes Amaral MD Service: ? Author [...] workup. PLAN: 1. Need Mammogram results from [place] 2. Proceed with genetic testing for platelet [...] Asthma - Depression (more content not included)... [facility] 11-03-2021 Instructions Fuentes Amaral MD - 11/03/2021 11:38 AM EDT 1. Need Mammogram results from [place] 2. Proceed with genetic testing for platelet disorder 3. Call next week to review mammogram results documented in this encounter [facility] 11-03-2021 History of Present illness Narrative Images [...] workup. PLAN: 1. Need Mammogram results from [place] 2. Proceed with genetic testing for platelet [...] which included preparing to see the patient, ohlk-xf-hdug patient care, completing clinical documentation, obtaining and/or reviewing separately obtained history, performing a medically appropriate examination, counseling and educating the patient/family/caregiver, ordering medications, tests, or procedures, independently interpreting results (not separately reported) and communicating results to the patient/family/caregiver. Fuentes Amaral MD, CPE Hematology and Oncology Services Provided at: [place], [place] CC: Cas Ochoasilvia documented in this encounter [facility] 10-31-2021 Note HNO ID: [id number] Author: Landen Clark APRN.MACY Service: ? Author [...] this as much as able. Landen Clark APRN.CNP [facility] 10-31-2021 Note HNO ID: [id number] Author: Landen Clark APRN.MACY Service: ? Author Type: Nurse Practitioner Type: Progress Notes Filed: 10/31/2021 2:03 PM Note Text: COVID Re[facility] Clinic Virtual Follow-up Evaluation This is a virtual visit using [employer] video visit. It required patient-provider interaction for [...] an sma group (more content not included)... [facility] 10-30-2021 Miscellaneous Notes I don't think I need labs for her. If needed, please add lab orders for appointment on 11/03/21. Sharon Peterson Ma documented in this encounter [facility] 10-24-2021 Note HNO ID: [id number] Author: Cindy Rushing MD Service: ? Author Type: Physician Type: Progress Notes Filed: 10/24/2021 12:28 PM Note Text: VIRTUAL VISIT PROGRESS NOTE This is a virtual visit using [employer] video visit. It required patient-provider interaction for [...] axillary lymphadenopathy. She is also following in [facility] clinic. She has noticed a rash that [...] controlled, she is following with Pulmonary and [facility] clinic She recently received iodinated contrast with pre-medication and was able to tolerate As per prior HPI: Chronic rhinitis Sinus/lung infections Longstanding history of recurrent pneumonia 1-2 times per year and recurrent sinus infections. Had sinus surgery which helped reduce sinus infections- however she has had 2 infections in the last 2 months. Immunodeficiency evaluation performed by an shear grinder operator helper in [place] showed protective strep pneumo titers after vaccination [...] at the ER Last December saw an shear grinder operator helper- skin testing was negative to environmental allergies [...] managed by her family medicine physician and service cashier. Has had 0 ER, hospitalization and ICU [...] cyst of pituitary (more content not included)... [facility] 10-24-2021 History of Present illness Narrative VIRTUAL VISIT PROGRESS NOTE This is a virtual visit using [employer] video visit. It required patient-provider interaction for [...] axillary lymphadenopathy. She is also following in [facility] clinic. She has noticed a rash that [...] controlled, she is following with Pulmonary and [facility] clinic She recently received iodinated contrast with pre-medication and was able to tolerate As per prior HPI: Chronic rhinitis Sinus/lung infections Longstanding history of recurrent pneumonia 1-2 times per year and recurrent sinus infections. Had sinus surgery which helped reduce sinus infections- however she has had 2 infections in the last 2 months. Immunodeficiency evaluation performed by an shear grinder operator helper in [place] showed protective strep pneumo titers after vaccination [...] at the ER Last December saw an shear grinder operator helper- skin testing was negative to environmental allergies [...] managed by her family medicine physician and service cashier. Has had 0 ER, hospitalization and ICU [...] uncontrolled Hypertension Mother Heart Attack Mother First [place] at age 51 Cardiomyopathy Mother at age [...] or contact dermatitis- advise follow-up with local Structural Test Engineer Allergic rhinitis, unspecified seasonality, unspecified trigger Comment/Plan: Well-controlled, continue Flonase and oral antihistamine Moderate persistent asthma without complication Comment/Plan: Controlled, continue follow-up with Pulmonary and Covid-19 [facility] Cindy Rushing MD documented in this encounter [facility] 10-20-2021 Note HNO ID: [id number] Author: Micheal Perez MD Service: ? Author Type: Physician Type: Progress Notes Filed: 10/20/2021 5:28 PM Note Text: Heart, Vascular AND Thoracic [place] Department of Cardiac Surgery VIRTUAL VIDEO VISIT [...] uncontrolled Hypertension Mother Heart Attack Mother First [place] at age 51 Cardiomyopathy Mother at age [...] Rfl: fremanezumab-vfrm subcutaneus auto-injector 225 mg/1.5 mL ([employer])Inject 1.5 mL subcutaneously once every month. Do [...] mouth daily at (more content not included)... [facility] 10-20-2021 Note HNO ID: [id number] Author: Micheal Perez MD Service: ? Author [...] Monitor: Extended Monitoring-[employer] Patch Enrollment Dates: 11/09/2021-11/22/2021 [facility] 10-20-2021 History of Present illness Narrative Heart, Vascular & Thoracic [place] Department of Cardiac Surgery VIRTUAL VIDEO VISIT [...] uncontrolled Hypertension Mother Heart Attack Mother First [place] at age 51 Cardiomyopathy Mother at age [...] 5:26 PM This note was generated using [employer] voice recognition system. Please excuse any typographical errors. I spent 30 minutes with the patient; greater than 50% of the time was spent in counselling and co-ordinating the care based on my impression and plan above. documented in this encounter [facility] 10-19-2021 Note HNO ID: [id number] Author: Bhargavi Saldana PA-C Service: ? Author Type: Physician Needle Grinder Type: Progress Notes Filed: 10/19/2021 2:41 PM [...] gland Asthma Bulg (more content not included)... [facility] 10-19-2021 Instructions Bhargavi Saldana PA-C - 10/19/2021 2:31 PM EDT Consider restart Botox PREEMPT Protocol Discontinue Emgality Start Ajovy - once monthly - wait until 11/10 to inject the first dose [facility] Home Delivery Pharmacy: [phone] Consider aimovig or vyepti Please follow up in 3 months or sooner if needed documented in this encounter [facility] 10-19-2021 History of Present illness Narrative Headache [...] fluticasone (FLONASE) 50 mcg/actuation nasal spray^Use 1 [place] in each nostril twice daily.^Disp: 3 Each^Rfl: [...] thrombosis. Unremarkable MRA brain and MRA neck. Performance Instructor: [facility] Transcribe Date/Time: Mar 31 2016 2:40P Dictated [...] change which could potentially contribute to headache. Performance Instructor: [facility] Transcribe Date/Time: Jun 27 2021 3:07P Dictated [...] Abs Lymph 1.00 - 4.00 k/uL 1.45 [place]% % 4.4 Abs [place] <0.87 k/uL 0.30 [place]% % 2.5 Abs [...] spontaneous and fluent without dysarthria. Short and fdc memory, cognition and general fund of knowledge [...] 20 minutes Bhargavi Saldana PA-C Headache Section [facility] October 19, 2021 documented in this encounter [facility] 10-14-2021 Note HNO ID: [id number] Author: Dolores Chavarria PSYD Service: ? Author Type: Physician Type: Progress Notes Filed: 10/17/2021 10:05 PM Note Text: [facility] Psychology Progress Note Billing codes: Keisha PSYCHOLOGY: FOLLOW-UP APPOINTMENT PROGRESS NOTE- Virtual Visit Due to the federal emergency declaration and the need for ongoing mental health services, the following visit was completed virtually and informed consent obtained orally to reduce the risk of COVID-19 exposure. Oral consent to services related to virtual visits was obtained after information was sent via Cequint or read to patient if [employer] not available. Leana Tran 10/14/2021 [id number] PROVIDER: Dolores Chavarria PSYD CPT Code: 8570073 Virtual PSYTX PT AND/FAMILY 45 MINS Time [...] Chavarria Psy.D. Associate Staff, [facility] 10-14-2021 History of Present illness Narrative [facility] Psychology Progress Note Billing codes: Keisha PSYCHOLOGY: FOLLOW-UP APPOINTMENT PROGRESS NOTE- Virtual Visit Due to the federal emergency declaration and the need for ongoing mental health services, the following visit was completed virtually and informed consent obtained orally to reduce the risk of COVID-19 exposure. Oral consent to services related to virtual visits was obtained after information was sent via Cequint or read to patient if [employer] not available. Leana Tan Marc 10/14/2021 [id number] PROVIDER: Dolores Chavarria PSYD CPT Code: 5440667 Virtual PSYTX PT &/FAMILY 45 MINS Time [...] Chavarria Psy.D. Associate Staff, [facility] documented in this encounter [facility] 10-12-2021 Note HNO ID: [id number] Author: Ruth Villaseñor MD Service: ? Author Type: Physician Type: Progress Notes Filed: 10/12/2021 2:42 PM Note Text: Rheumatology Outpatient Clinic Date of Service: 10/12/2021 Patient: Leana Tran Medical Record: [id number] Primary Care Physician: Cas Dowell MD Referring [...] for LN yet. Awaiting follow up in [facility] clinic. Discussed blood test results and discussed [...] HX 2010 exploration (more content not included)... [facility] 10-12-2021 History of Present illness Narrative Images from the original note were not included. Rheumatology Outpatient Clinic Date of Service: 10/12/2021 Patient: Leana Tran Medical Record: [id number] Primary Care Physician: Cas Dowell MD Referring [...] uncontrolled Hypertension Mother Heart Attack Mother First [place] at age 51 Cardiomyopathy Mother at age [...] (FLONASE) 50 mcg/actuation nasal spray Use 1 [place] in each nostril twice daily. zonisamide (ZONEGRAN) [...] AM (Final result) Impression: IMPRESSION: See Result. Performance Instructor: ROBER Transcribe Date/Time: Sep 30 2021 2:15P... [...] In certain cases, a referral to a dermatology specialist may be required, in patients who [...] Villaseñor MD Rheumatology documented in this encounter [facility] 09-30-2021 History of Present illness Narrative Radiology [...] 2021 9:53 AM documented in this encounter [facility] 09-27-2021 History of Present illness Narrative PULM FUNCTION SMARTBLOCK: Provider: Landen Clark APRN.MANAGED SERVICES CONSULTANT Assisting Tech: Yanira Bryson RRT Spirometry w/BD: 1 DLCO: 1 LV - Box: 1 6 MW: 1 documented in this encounter [facility] 09-22-2021 Miscellaneous Notes Spoke with provider through secure chat-due to triage, worsening symptoms, and time of day sent patient to ED Patient stated that will head to [facility] shortly to be evaluated. Thank you, Kari [...] Landen Clark APRN.MACY documented in this encounter [facility] 09-21-2021 History of Present illness Narrative Images from the original note were not included. Rheumatology Outpatient Clinic Date of Service: 09/21/2021 Patient: Leana Tran Medical Record: [id number] Primary Care Physician: Cas Dowell MD Referring Provider: SELF Last Rheumatology visit: None at [facility] Chief complaint: Consult (Patient states she was at [facility] on 09/19/21, seen Landen Clark APRN. She states her lymph nodes were swollen at that visit. Patient states had COVID 10/2020. She states her bones feel like someone is scraping them. /Patient states she will pours out sweat or is freezing symptoms started in and getting a lot worse now. ) [...] of Consult (Patient states she was at [facility] on 09/19/21, seen Landen Clark APRN. She [...] uncontrolled Hypertension Mother Heart Attack Mother First [place] at age 51 Cardiomyopathy Mother at age [...] (FLONASE) 50 mcg/actuation nasal spray Use 1 [place] in each nostril twice daily. zonisamide (ZONEGRAN) [...] in NaCl (PF) 0.9% 10 mL injection ([employer]) sodium chloride 0.9 % (flush) 10 mL [...] repeat CBC, CMP, C3, C4 ordered at [facility]. To evaluate for causes that could contribute to her pain, I will follow CBC with diff, comprehensive metabolic panel,TSH, 25-hydroxy vitamin D, vitamin B12 levels, ordered at [facility]. Additionally, because sleep apnea can [...] In certain cases, a referral to a dermatology specialist may be required, in patients who [...] which included preparing to see the patient, klyn-dv-dybs patient care, completing clinical documentation, obtaining and/or [...] Time: 5:08 PM documented in this encounter [facility] 09-19-2021 Miscellaneous Notes Please help schedule fu visit in 4-6 weeks and testing please. Landen Clark APRN.CNP documented in this encounter [facility] 09-19-2021 Instructions Landen Clark APRN.CNP - 09/19/2021 3:10 PM EDT Welcome to [facility]'s [facility]! The 'COV' represents SARS-CoV-2, [...] reC[facility]er Clinic Team documented in this encounter [facility] 09-19-2021 History of Present illness Narrative Images from the original note were not included. COVID [facility] Initial Evaluation Leana Tran presents to [facility] at the request of Sai Perez MD [...] (FLONASE) 50 mcg/actuation nasal spray Use 1 [place] in each nostril twice daily. zonisamide (ZONEGRAN) [...] which included preparing to see the patient, yrmr-cr-wgum patient care, completing clinical documentation, obtaining and/or reviewing separately obtained history, performing a medically appropriate examination, counseling and educating the patient/family/caregiver, ordering medications, tests, or procedures, communicating with other HCPs (not separately reported), independently interpreting results (not separately reported), communicating results to the patient/family/caregiver, and care coordination (not separately reported). Landen Clark APRN.CNP September 19, 2021 2:07 PM documented in this encounter [facility] 09-16-2021 History of Present illness Narrative [facility] Psychology Progress Note Billing codes: Keisha PSYCHOLOGY: FOLLOW-UP APPOINTMENT PROGRESS NOTE- Virtual Visit Due to the federal emergency declaration and the need for ongoing mental health services, the following visit was completed virtually and informed consent obtained orally to reduce the risk of COVID-19 exposure. Oral consent to services related to virtual visits was obtained after information was sent via Cequint or read to patient if [employer] not available. Leana Tran 09/16/2021 [id number] PROVIDER: Dolores Chavarria PSYD CPT Code: 8760755 Virtual PSYTX PT &/FAMILY 45 MINS Time [...] (FLONASE) 50 mcg/actuation nasal spray Use 1 [place] in each nostril twice daily. zonisamide (ZONEGRAN) [...] Chavarria Psy.D. Associate Staff, [facility] documented in this encounter [facility] 09-05-2021 Hospital Discharge instructions Christine Abraham DO - 09/05/2021 4:38 PM EDT Please stop the Valtrex and Levaquin. Contact your primary care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 documented in this encounter [facility] 06-14-2021 Nurse Note Thank you for choosing the [facility] Department of Endocrinology, Diabetes and Metabolism. Did you know that you need to call 48 hours in advance of your scheduled visit, if you are unable to make your appointment? The [facility] [place] thanks you for your commitment, because patients not showing to their appointment results in a lost opportunity for patients to receive [facility] health care at the [facility]. To Cancel an appointment, please choose one of the following: - Call the Appointment Call Center at [phone] - From [employer], Go to Appointments Cancel Appts If cancelling, consider your need to reschedule to prevent further delays in your care. To Schedule an appointment, please choose one of the following: - Call the Appointment Call Center at [phone] - From [facility], Go to Appointments Request an Appt documented in this encounter [facility] 06-14-2021 History of Present illness Narrative [...] Care Visit completed when applicable. Haily [place] [employer] documented in this encounter [facility] 06-10-2021 History of Present illness Narrative [...] to see endocrinology, neurology and cardiology at [facility] next week. ROS is negative [...] which included preparing to see the patient, [id number]-hm-tash patient care, completing clinical documentation, obtaining and/or reviewing separately obtained history, performing a medically appropriate examination, counseling and educating the patient/family/caregiver, ordering medications, tests, or procedures, independently interpreting results (not separately reported) and communicating results to the patient/family/caregiver. CC: Peng Manley documented in this encounter [facility] 05-31-2021 Miscellaneous Notes Outside medical records received and scanned in for review. documented in this encounter [facility] 05-20-2021 Hospital Discharge instructions Shanna Rivas, LIO - MANAGED SERVICES CONSULTANT - 05/20/2021 Increase your fluid intake. Eat [...] cannot be sent through Care Everywhere.Chest Pain (Emirati)Abdominal Pain (Emirati)documented in this encounter [employer] Phone: 04-16-2021 Hospital Discharge instructions Shanna Rivas APRN - CNP - 04/16/2021 Increase your fluid intake. Follow-up with both PCP and BUCKLE SEWER MACHINE for reevaluation. Take Reglan as prescribed. Talk to your BUCKLE SEWER MACHINE about the left ovarian cyst seen on CT as well as possible mild fluid in your fallopian tube. Take all medications as prescribed. Return to the ER for increased pain, fevers, difficulty breathing, vomiting or new or worsening signs or symptoms. The following attachments cannot be sent through Care Everywhere.Ovarian Cyst: Functional (Emirati)Nausea and Vomiting (Emirati)documented in this encounter [employer] Phone: 11-01-2020 Hospital Discharge instructions Araseli Barrett [...] through Care Everywhere.Coronavirus Disease (COVID-19): General Info (Emirati)documented in this encounter [employer] Phone: 09-06-2020 Note HNO ID: [id number] Author: Lis Moraes MD Service: ? Author [...] - Tolerated procedure well Lis Moraes MD [facility] 09-06-2020 Note HNO ID: [id number] Author: Lis Moraes MD Service: ? Author Type: Physician Type: Progress Notes Filed: 09/06/2020 3:10 PM Note Text: PROGRESS NOTE- HEADACHE SERVICE DATE: September 06, 2020 Location: [facility] Participants: patient and provider Requesting [...] bleeds - Lavender (more content not included)... [facility] Evaluation + Plan note Future Appointments Appointment Date:02/28/2022 08:30:00 AM Scheduled Provider:LORAINE RUBALCAVA PA-C Location:[facility] Appointment Type:URO Office Visit [facility] Evaluation + Plan note Future Appointments Appointment Date:08/30/2022 03:00:00 PM Scheduled Provider:LORAINE RUBALCAVA PA-C Location:[facility] Appointment Type:URO Office Visit [facility] Evaluation + Plan note Future Appointments Appointment Date:09/11/2023 09:00:00 AM Scheduled Provider:LORAINE RUBALCAVA PA-C Location:[facility] Appointment Type:URO Office Visit [facility] [employer] Evaluation note Diagnosis Strain of lumbar region, initial encounter- Primary documented in this encounter [employer] Phone: evaleujjgd note* Diagnosis COVID-19- Primary documented in this encounter [employer] Phone: evaluation note* Diagnosis Intractable nausea and vomiting- Primary Persistent vomiting Hydrosalpinx Chronic salpingitis and oophoritis Left ovarian cyst Other and unspecified ovarian cyst documented in this encounter [employer] Phone: evaluation note* Diagnosis Chest pain, unspecified type- Primary Abdominal pain, acute, right lower quadrant Abdominal pain, right lower quadrant documented in this encounter [employer] Phone: evaluation note* Diagnosis Urticaria- Primary Urticaria, unspecified Moderate persistent asthma with exacerbation Unspecified asthma, with exacerbation documented in this encounter [employer] Phone: evaleriwbe note* Diagnosis Coagulopathy (HCC)- Primary Other and unspecified coagulation defects documented in this encounter [facility] note* Diagnosis Screening for endocrine disorder- Primary Primary hypothyroidism Unspecified hypothyroidism documented in this encounter [facility] note* Diagnosis Screening for endocrine disorder- Primary [facility] [place] [facility] Diagnosis Disorder of autonomic nervous system Unspecified disorder of autonomic nervous system [facility] [place] [facility]* Diagnosis Spasm of muscle- Primary Acute nonspecific chest pain with low risk of coronary artery disease documented in this encounter [employer] Phone: evaluation note* Diagnosis Worsening headaches- Primary Headache Maxillary sinus cyst Other diseases of nasal cavity and sinuses Muscle spasms of lower extremity, unspecified laterality Akathisia Abnormal involuntary movements Blurred vision Other specified visual disturbances Chorea Other choreas [facility] [place] [facility] [place] [facility]* Diagnosis Coagulopathy (HCC)- Primary Other and unspecified coagulation defects 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 documented in this encounter [facility] note* Diagnosis Screening for endocrine disorder- Primary [facility] [place] [facility]* Diagnosis Intractable chronic migraine without aura and without status migrainosus- Primary Chronic migraine without aura, with intractable migraine, so stated, without mention of status migrainosus Abnormal involuntary movement Abnormal involuntary movements [facility] [place] [facility]* Diagnosis Allergy, initial encounter- Primary Headaches [facility] [place] [facility]* Diagnosis Bleeding disorder (HCC)- Primary Unspecified hemorrhagic conditions Coagulopathy (HCC) Other and unspecified coagulation defects 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 [facility] [place] [facility]* Diagnosis Screening for endocrine disorder [facility] [place] [facility]* Diagnosis 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) Unspecified hemorrhagic conditions [facility] [place] [facility]* Diagnosis History of COVID-19- Primary Symptomatic bradycardia Other specified cardiac dysrhythmias Blood pressure instability Other abnormal clinical finding [facility] [place] [facility]* Diagnosis Angioedema, initial encounter- Primary Urticaria Urticaria, unspecified Hoarseness of voice Dysphonia Allergic rhinitis, unspecified seasonality, unspecified trigger Adverse effect of drug, initial encounter Allergic reaction to contrast material, initial encounter Adverse food reaction, initial encounter Moderate persistent asthma without complication Unspecified asthma Gastroesophageal reflux disease, unspecified whether esophagitis present [facility] [place] [facility]* Diagnosis Screening for endocrine disorder Muscle spasms of lower extremity, unspecified laterality Akathisia Abnormal involuntary movements [facility] [place] [facility]* Diagnosis Chronic migraine without aura, intractable, without status migrainosus- Primary [facility] [place] [facility]* Diagnosis Depression, unspecified depression type- Primary Anxiety Anxiety state, unspecified Intractable chronic migraine without aura and without status migrainosus Chronic migraine without aura, with intractable migraine, so stated, without mention of status migrainosus Abnormal involuntary movement Abnormal involuntary movements documented in this encounter [facility] note* Diagnosis White coat syndrome with hypertension- Primary [facility] [place] [facility]* Diagnosis Intractable chronic migraine without aura and without status migrainosus Chronic migraine without aura, with intractable migraine, so stated, without mention of status migrainosus Abnormal involuntary movement Abnormal involuntary movements [facility] [place] [facility]* Diagnosis Chronic RLQ pain- Primary Abdominal pain, right lower quadrant Diastasis recti Diastasis of muscle documented in this encounter [facility] note* Diagnosis Chronic RLQ pain- Primary Abdominal pain, right lower quadrant documented in this encounter [facility] note* Diagnosis Symptomatic bradycardia Other specified cardiac dysrhythmias Blood pressure instability Other abnormal clinical finding History of COVID-19 [facility] [place] [facility]* Diagnosis White coat syndrome without diagnosis of hypertension- Primary Elevated blood pressure reading without diagnosis of hypertension documented in this encounter [facility] note* Diagnosis Diffuse pain- Primary Generalized pain Decreased activity tolerance Physical deconditioning Debility, unspecified Orthostatic intolerance documented in this encounter [facility] note* Diagnosis Long COVID- Primary Diffuse pain Generalized pain Decreased activity tolerance PTSD (post-traumatic stress disorder) Posttraumatic stress disorder documented in this encounter [facility] note* Diagnosis Allergic reaction, initial encounter- Primary documented in this encounter [facility] [employer] Phone: evaluation note* Diagnosis Depression, unspecified depression type- Primary Anxiety Anxiety state, unspecified Abnormal involuntary movement Abnormal involuntary movements documented in this encounter [facility] note* Diagnosis Post-acute sequelae of COVID-19 (PASC)- [...] of left axilla [facility] [place] [facility]* Diagnosis Bone pain- Primary Disorder of bone and cartilage, unspecified Malaise and fatigue Other malaise and fatigue Lymphadenopathy Enlargement of lymph nodes [facility] [place] [facility]* Diagnosis 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 [facility] [place] [facility]* Diagnosis History of COVID-19- Primary Post-acute [...] joint, multiple sites [facility] [place] [facility]* Diagnosis History of COVID-19 Post-acute sequelae [...] joint, multiple sites [facility] [place] [facility] Diagnosis History of COVID-19 Post-acute sequelae [...] joint, multiple sites [facility] [place] [facility]* Diagnosis 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 History of COVID-19 Post-acute [...] joint, multiple sites [facility] [place] [facility]* Diagnosis Malaise and fatigue- Primary Other malaise and fatigue Lymphadenopathy Enlargement of lymph nodes [facility] [place] [facility]* Diagnosis Depression, unspecified depression type- Primary Anxiety Anxiety state, unspecified Abnormal involuntary movement Abnormal involuntary movements [facility] [place] [facility]* Diagnosis Chronic migraine without aura, intractable, without status migrainosus- Primary [facility] [place] [facility]* Diagnosis Palpitations- Primary Symptomatic bradycardia Other specified cardiac dysrhythmias Orthostatic lightheadedness Dizziness and giddiness Diffuse pain Generalized pain Blood pressure instability Other abnormal clinical finding Decreased activity tolerance Orthostatic intolerance Moderate persistent asthma without complication Unspecified asthma Physical deconditioning Debility, unspecified [facility] [place] [facility]* Diagnosis Night sweats- Primary Generalized hyperhidrosis Lymphadenopathy Enlargement of lymph nodes Rash and nonspecific skin eruption Rash and other nonspecific skin eruption Allergic rhinitis, unspecified seasonality, unspecified trigger Moderate persistent asthma without complication Unspecified asthma [facility] [place] [facility]* Diagnosis 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) Unspecified hemorrhagic conditions [facility] [place] [facility]* Diagnosis 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 [facility] [place] [facility]* Diagnosis Breast screening- Primary Breast screening, unspecified 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 [facility] [place] [facility]* Diagnosis KATELIN on CPAP- Primary Obstructive [...] hazards to health [facility] [place] [facility]* Diagnosis Breast screening- Primary Breast screening, unspecified 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 documented in this encounter [facility] note* Diagnosis Palpitations- Primary Orthostatic intolerance Symptomatic bradycardia Other specified cardiac dysrhythmias documented in this encounter [facility] note* Diagnosis Moderate persistent asthma without complication- Primary Unspecified asthma SOB (shortness of breath) Shortness of breath Post-acute sequelae of COVID-19 (PASC) documented in this encounter [facility] note* Diagnosis Migraine without aura and without status migrainosus, not intractable- Primary Migraine without aura, without mention of intractable migraine without mention of status migrainosus documented in this encounter [facility] note* Diagnosis 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) Unspecified hemorrhagic conditions documented in this encounter [facility] note* Diagnosis No-show for appointment- Primary documented in this encounter [facility] note* Diagnosis 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) Unspecified hemorrhagic conditions Coagulopathy (HCC) Other and unspecified coagulation defects documented in this encounter [facility] note* Diagnosis 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) Unspecified hemorrhagic conditions documented in this encounter [facility] note* Diagnosis 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 documented in this encounter [facility] note* Diagnosis Migraine without aura and without status migrainosus, not intractable- Primary Migraine without aura, without mention of intractable migraine without mention of status migrainosus documented in this encounter [facility] note* Diagnosis 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) Unspecified hemorrhagic conditions Coagulopathy (HCC) Other and unspecified coagulation defects documented in this encounter [facility] note* Diagnosis Moderate persistent asthma without complication (CMS/HCC)- Primary [facility] [place] [facility]* Diagnosis 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 * Strain or Sprain (Emirati) documented in this [facility] Phone: Hospital Discharge instructions* Attachments The following attachments cannot be sent through Care Everywhere. * Chest Pain (Emirati) * Restless Legs Syndrome (Emirati) [facility] Phone: InstructionsNot on filedocumented in this encounter [employer] SystemInstructionsNot on filedocumented in this encounter CodaMation SystemProgress note No data available for this section [facility] reason for referral (narrative)* Diagnostic Procedure Only (Routine) - Authorized Specialty Diagnoses / Procedures Referred By Contac t Referred To Contact US IMAGING Diagnoses Chronic RLQ pain Procedures US SOFT TISSUE ABDOMEN US ABDOMINAL REAL TIME W/[place] [address] [place] [address] Us Imaging Referral ID Status Reason Start Date Expiration Date Visits Requested Visits Authorized [id number] Authorized Auto-Generat ed Referral 08/15/2021 09/14/2022 1 1 [facility] for referral (narrative)* Diagnostic Procedure Only (Routine) - Authorized Specialty Diagnoses / Procedures Referred By Contac t Referred To Contact US IMAGING Diagnoses Chronic RLQ pain Procedures US PELVIS LTD US PELVIC NONOBSTETRIC IMAGE DCMTN LIMITED/F/[place] [address] [place] [address] Us Imaging Referral ID Status Reason Start Date Expiration Date Visits Requested Visits Authorized [id number] Authorized Auto-Generat ed Referral 08/16/2021 09/15/2022 1 1 [facility] for referral (narrative)* Outpatient Procedure (Routine) - Closed Specialty Diagnoses / Procedures Referred By Contac t Referred To Contact [facility] Diagnoses Symptomatic bradycardia Blood pressure instability History of COVID-19 Procedures ECHO ECHO TTHRC R-T 2D W/WOM-MODE COMPL SPEC&COLR D Sai Perez MD [address] [place] [address] [place] [address] Referral ID Status Reason Start Date Expiration Date V isits Requested Visits Authorized [id number] Closed Auto-Generate d Referral 07/21/2021 07/21/2022 1 1 [facility] for referral (narrative)* Diagnostic Procedure Only (Routine) - Pending Review Specialty Diagnoses / Procedures Referred By Contac t Referred To Contact US IMAGING Diagnoses Post-acute sequelae of COVID-19 (PASC) Mass of left axilla Procedures US CHEST WALL/SOFT TISSUE US CHEST REAL TIME W/IMAGE DOCUMENTATION Landen Clark APRN.CNP [address] [place] [address] Us Imaging Referral ID Status Reason Start Date Expiration Date Visits Requested Visits Authorized [id number] Pending Review Auto-Generat ed Referral 09/19/2021 10/19/2022 [...] multiple sites Procedures LUNG VOLUMES Landen Clark APRN.MANAGED SERVICES CONSULTANT [address] [place] [address] [facility] [place] [address] [place] [address] Referral ID Status Reason Start Date Expiration Date Visits Requested Visits Authorized [id number] Pending Review Auto-Generat ed Referral 09/19/2021 10/19/2022 [...] BRNCDILAT RSPSE SPMTRY PRE&POST-BRNCDILAT ADMN Landen Clark APRN.MANAGED SERVICES CONSULTANT [address] [place] [address] [facility] [place] [address] [place] [address] Referral ID Status Reason Start Date Expiration Date Visits Requested Visits Authorized [id number] Pending Review Auto-Generat ed Referral 09/19/2021 10/19/2022 [...] MINUTE WALK CARDIOPULMONARY EXERCISE STRESS Landen Clark APRN.MANAGED SERVICES CONSULTANT [address] [place] [address] [facility] [place] [phone] Referral ID Status Reason Start Date Expiration Date Visits Requested Visits Authorized [id number] Pending Review Auto-Generat ed Referral 09/19/2021 10/19/2022 [...] CAPACITY (DLCO) DIFFUSING CAPACITY Landen Clark APRN.CNP [address] [phone] [place] [address] Referral ID Status Reason Start Date Expiration Date Visits Requested Visits Authorized [id number] Pending Review Auto-Generat ed Referral 09/19/2021 10/19/2022 1 1 [facility] for referral (narrative)* Outpatient Procedure (Routine) - Pending Review Specialty Diagnoses / Procedures Referred By Contac t Referred To Contact [facility] Diagnoses KATELIN on CPAP Poor compliance with CPAP treatment Procedures PAP NAP PSG (CPAP, BILEVEL, ASV) SLEEP STD REC VNTJ RESPIR ECG/HRT RATE&O2 ATTN Meena Grissom MD [address] [place] [address] [place] [address] Referral ID Status Reason Start Date Expiration Date Visits Requested Visits Authorized [id number] Pending Review Auto-Generat ed Referral 12/16/2022 1 1 [facility] for referral (narrative)* Outpatient Procedure (Routine) - Pending Review Specialty Diagnoses / Procedures Referred By Sabas harris Referred To Contact [facility] Diagnoses Moderate persistent asthma without complication SOB (shortness of breath) Post-acute sequelae of COVID-19 (PASC) Procedures SPIROMETRY - BASELINE AND POST DILATOR BRNCDILAT RSPSE SPMTRY PRE&POST-BRNCDILAT ADMN Jaja Cabral PA-C [address] [place] [address] [facility] [address] [place] [address] Referral ID Status Reason Start Date Expiration Date Visits Requested Visits Authorized [id number] Pending Review Auto-Generat ed Referral 12/06/2021 01/05/2023 1 1 * Outpatient Procedure (Routine) - Pending Review Specialty Diagnoses / Procedures Referred By Sabas harris Referred To Contact [facility] Diagnoses Moderate persistent asthma without complication SOB (shortness of breath) Post-acute sequelae of COVID-19 (PASC) Procedures NITRIC OXIDE, EXHALED NITRIC OXIDE GAS DETERMINATION Jaja Cabral PA-C [address] [place] [address] [facility] [address] [place] [address] Referral ID Status Reason Start Date Expiration Date Visits Requested Visits Authorized [id number] Pending Review Auto-Generat ed Referral 12/06/2021 01/05/2023 1 1 [facility] for visit Narrative* Outpatient Procedure (Routine) - Closed Specialty Diagnoses / Procedures Referred By Sabas harris Referred To Contact [facility] Diagnoses Symptomatic bradycardia Blood pressure instability History of COVID-19 Procedures ECHO ECHO TTHRC R-T 2D W/WOM-MODE COMPL SPEC&COLR D Sai Perez MD [address] [place] [address] [facility] [place] [address] [place], [place] [phone] Referral ID Status Reason Start Date Expiration Date V isits Requested Visits Authorized [id number] Closed Auto-Generate d Referral 07/21/2021 07/21/2022 1 1 [facility] for visit Narrative* Outpatient Procedure (Routine) - Closed Specialty Diagnoses / Procedures Referred By Sabas harris Referred To Contact [facility] Diagnoses History of COVID-19 Post-acute sequelae of COVID-19 (PASC) SOB (shortness of breath) Chronic cough Chest discomfort Palpitation CAVANAUGH (dyspnea on exertion) Dizziness Near syncope Night sweats Orthopnea Anxiety Myalgia Pain in joint, multiple sites Procedures SIX MINUTE WALK CARDIOPULMONARY EXERCISE STRESS Landen Clark APRN.MACY [address] [place] [phone] [facility] [place] [address] [place] [address] Referral ID Status Reason Start Date Expiration Date V isits Requested Visits Authorized [id number] Closed Auto-Generate d Referral 09/19/2021 10/19/2022 1 1 [facility] Advance Directives No Advanced Directives Records FoundDocuments on File Type Date Recorded Patient Emergency Medical Technician Expl anation ACP-Advance Directive ACP-Power of Paid Search Manager Latest Code Status on File Code Status Date Activated Date Inactivated Comments Full Code 12/30/2011 10:09 AM 12/31/2011 4:00 PM Documents on File Type Date Recorded Patient Emergency Medical Technician Expl anation Advance Directive(s) 05/18/2015 10:11 AM Advance Directive(s) 05/14/2015 12:11 PM Documents on File Type Date Recorded Patient Emergency Medical Technician Expl anation Advance Directive(s) 06/27/2021 1:27 PM Advance Directive(s) 05/18/2015 10:11 AM Advance Directive(s) 05/14/2015 12:11 PM Documents on File Type Date Recorded Patient Emergency Medical Technician Expl anation Advance Directive(s) 06/27/2021 1:27 PM Advance Directive(s) 05/18/2015 10:11 AM Advance Directive(s) 05/14/2015 12:11 PM Documents on File Type Date Recorded Patient Emergency Medical Technician Expl anation ACP-Advance Directive 01/12/2022 2:29 PM ACP-Power of Paid Search Manager 01/12/2022 2:29 PM Latest Code Status on [...] laterality Akathisia Procedures CONSULT TO NEUROLOGY OFFICE/OUTPATIENT [facility] 60-74 MINUTES Peter Knight, LIO.MANAGED SERVICES CONSULTANT [address] [phone] Referral ID Status Reason Start Date Expiration Date Visits Requested Visits Authorized [id number] Authorized PCP Requested Referral 06/27/2021 06/27/2022 1 1 Specialty Diagnoses / Procedures Referred By Contac t Referred To Contact Ent - Otolaryngology Diagnoses Maxillary sinus cyst Procedures CONSULT TO ENT OFFICE/OUTPATIENT [facility] 60-74 MINUTES Peter Knight, LIO.MANAGED SERVICES CONSULTANT [address] [place] [address] Referral ID Status Reason Start Date Expiration Date Visits Requested Visits Authorized [id number] Authorized PCP Requested Referral 06/27/2021 06/27/2022 1 1 Specialty Diagnoses / Procedures Referred By Contac t Referred To Contact Diagnoses Coagulopathy (HCC) 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HCC) Procedures CONSULT TO MEDICAL GENETICS - GENERAL OFFICE/OUTPATIENT [facility] 60-74 MINUTES MEDICAL GENETICS COUNSELING EACH 30 MINUTES Yan Bass MD [address] [place] [address] [place] [address] [facility] [place] [address] [place] [address] Referral ID Status Reason Start Date Expiration Date Visits Requested Visits Authorized [id number] Authorized PCP Requested Referral Auto-Generate d Referral 07/01/2021 07/01/2022 1 1 Specialty Diagnoses / Procedures Referred By Contac t Referred To Contact Psychology Diagnoses Intractable chronic migraine without aura and without status migrainosus Abnormal involuntary movement Procedures CONSULT TO PSYCHOLOGY OFFICE/OUTPATIENT [facility] 60-74 MINUTES Tracee Mcintyre MD [address] [phone] Referral ID Status Reason Start Date Expiration Date Visits Requested Visits Authorized [id number] Pending Review PCP Requested Referral 07/06/2021 07/06/2022 1 1 Specialty Diagnoses / Procedures Referred By Contac t Referred To Contact [facility] Diagnoses Intractable chronic migraine without aura and without status migrainosus Abnormal involuntary movement Procedures CONSULT TO PHYSICAL THERAPY PHYSICAL THERAPY EVALUATION HIGH COMPLEX 45 MINS Tracee Mcintyre MD [address] [place] [address] [facility] [place] [phone] Referral ID Status Reason Start Date Expiration Date Visits Requested Visits Authorized [id number] Pending Review Auto-Generat ed Referral 07/06/2021 07/06/2022 1 1 Specialty Diagnoses / Procedures Referred By Contac t Referred To Contact Allergy Diagnoses Allergy, initial encounter Procedures CONSULT TO ALLERGY/IMMUNOLOGY OFFICE/OUTPATIENT [facility] 60-74 MINUTES Aldo Ann MD [address] [place] [address] Referral ID Status Reason Start Date Expiration Date Visits Requested Visits Authorized [id number] Authorized PCP Requested Referral 07/14/2021 07/14/2022 1 1 Specialty Diagnoses / Procedures Referred By Contac t Referred To Contact PULM BRITNEY [facility] IN[facility] Diagnoses History of COVID-19 Procedures CONSULT TO COVID RECOVER CLINIC Sai Perez MD [address] [place] [address] Pulm Covid Rec[facility] [address] [place] [address] Referral ID Status Reason Start Date Expiration Date Visits Requested Visits Authorized [id number] Authorized PCP Requested Referral 07/21/2021 07/21/2022 1 1 Specialty Diagnoses / Procedures Referred By Contac t Referred To Contact [facility] Diagnoses Symptomatic bradycardia Blood pressure instability History of COVID-19 Procedures ECHO ECHO TTHRC R-T 2D W/WOM-MODE COMPL SPEC&COLR D Sai Perez MD [address] [place] [address] [facility] [place] [address] [place] [address] Referral ID Status Reason Start Date Expiration Date Visits Requested Visits Authorized [id number] Authorized Auto-Generat ed Referral 07/21/2021 07/21/2022 1 1 Specialty Diagnoses / Procedures Referred By Contac t Referred To Contact Ent - Otolaryngology Diagnoses Hoarseness of voice Procedures CONSULT TO ENT OFFICE/OUTPATIENT NEW HIGH MDM 60-74 MINUTES Cindy Rushing MD [address] [address] Rc Cardenas, PhD, CCC-AIRCRAFT ARMAMENT MECHANIC [address] [place] [address] Referral ID Status Reason Start Date Expiration Date Visits Requested Visits Authorized [id number] Authorized PCP Requested Referral 07/25/2021 07/25/2022 1 1 Specialty Diagnoses / Procedures Referred By Contac t Referred To Contact Diagnoses Diffuse pain Decreased activity tolerance Physical deconditioning Procedures WELLNESS CONSULT OFFICE/OUTPATIENT NEW HIGH MDM 60-74 MINUTES Peter Knight APRN.MANAGED SERVICES CONSULTANT [address] [place] [address] Referral ID Status Reason Start Date Expiration Date Visits Requested Visits Authorized [id number] Authorized PCP Requested Referral 08/23/2021 08/23/2022 1 1 Specialty Diagnoses / Procedures Referred By Contac t Referred To Contact Diagnoses Long COVID PTSD (post-traumatic stress disorder) Procedures MIND/BODY HOLISTIC PSYCHOTHERAPY OFFICE/OUTPATIENT [facility] 60-74 MINUTES Ayaka Bright MD [employer] [address] [id number] Referral ID Status Reason Start Date Expiration Date Visits Requested Visits Authorized [id number] Authorized PCP Requested Referral 08/30/2021 08/30/2022 1 1 Specialty Diagnoses / Procedures Referred By Contac t Referred To Contact Diagnoses Long COVID Diffuse pain Decreased activity tolerance Procedures CONSULT TO NUTRITION SERVICES AT [facility] OFFICE/OUTPATIENT [facility] 60-74 MINUTES Ayaka Bright MD [facility] [employer] [place] [address] [place] [address] Referral ID Status Reason Start Date Expiration Date Visits Requested Visits Authorized [id number] Authorized PCP Requested Referral 08/30/2021 08/30/2022 1 1 Specialty Diagnoses / Procedures Referred By Contac t Referred To Contact Diagnoses Chronic migraine without aura, intractable, without status migrainosus Procedures PROVIDER ORDERED FOLLOW UP OFFICE/OUTPATIENT [facility] 60-74 MINUTES Bhargavi Saldana PA-C [address] [place] [address] Referral ID Status Reason Start Date Expiration Date Visits Requested Visits Authorized [id number] Authorized PCP Requested Referral 10/19/2022 1 1 Specialty Diagnoses / Procedures Referred By Contac t Referred To Contact Hematology Diagnoses Lymphadenopathy Night sweats Procedures CONSULT TO HEMATOLOGY OFFICE/OUTPATIENT [facility] 60-74 MINUTES Cindy Rushing MD [address] [address] Referral ID Status Reason Start Date Expiration Date Visits Requested Visits Authorized [id number] Authorized PCP Requested Referral 10/24/2021 10/24/2022 1 1 Specialty Diagnoses / Procedures Referred By Contac t Referred To Contact Diagnoses Migraine without aura and without status migrainosus, not intractable Procedures PROVIDER ORDERED FOLLOW UP OFFICE/OUTPATIENT [facility] 60-74 MINUTES Bhargavi Saldana PA-C [address] [place] [address] Referral ID Status Reason Start Date Expiration Date Visits Requested Visits Authorized [id number] Authorized PCP Requested Referral 04/16/2022 01/16/2023 1 1 Specialty Diagnoses / Procedures Referred By Contac t Referred To Contact Cardiology Diagnoses 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) Coagulopathy (HCC) Procedures CONSULT TO CARDIOLOGY OFFICE/OUTPATIENT 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 Pt used epi-pen prior to arrival and reports feeling short of breath Reason Comments surgery clearence Reason Comments Adrenal Specialty Diagnoses / Procedures Referred By Contac t Referred To Contact Endocrinology Diagnoses Symptomatic bradycardia Blood pressure instability Procedures CONSULT TO ENDOCRINOLOGY OFFICE/OUTPATIENT [facility] 60-74 MINUTES Peter Knight APRN.MACY [address] [place] [address] Referral ID Status Reason Start Date Expiration Date V isits Requested Visits Authorized [id number] Closed PCP Requested Referral 05/24/2021 05/24/2022 1 [...] CONSULT TO MEDICAL GENETICS - GENERAL OFFICE/OUTPATIENT [facility] 60-74 MINUTES MEDICAL GENETICS COUNSELING EACH 30 MINUTES Yan Bass MD [address] [place] [address] [place] [address] [facility] [place] [address] [place] [address] Referral ID Status Reason Start Date Expiration Date V isits Requested Visits Authorized [id number] Closed PCP Requested Referral Auto-Generated Referral 07/01/2021 07/01/2022 1 1 Reason Comments Coagulopathy Specialty Diagnoses / Procedures Referred By Contac t Referred To Contact Cardiology Diagnoses Symptomatic bradycardia Blood pressure instability Procedures CONSULT TO CARDIOLOGY OFFICE/OUTPATIENT [facility] 60-74 MINUTES Peter Knight APRN.CNP [address] [place] [address] Referral ID Status Reason Start Date Expiration Date V isits Requested Visits Authorized [id number] Closed PCP Requested Referral 05/24/2021 05/24/2022 1 1 Reason Comments Allergies Asthma Reason Comments Follow Up Chronic Migraine Reason Comments Consult Specialty Diagnoses / Procedures Referred By Contac t Referred To Contact Psychology Diagnoses Intractable chronic migraine without aura and without status migrainosus Abnormal involuntary movement Procedures CONSULT TO PSYCHOLOGY OFFICE/OUTPATIENT [facility] 60-74 MINUTES Tracee Mcintyre MD [address] [phone] Referral ID Status Reason Start Date Expiration Date Visits Requested Visits Authorized [id number] Pending Review PCP Requested Referral 07/06/2021 07/06/2022 1 1 Reason Comments BP 24 Hour Monitor Evaluation Reason Comments PT Eval Specialty Diagnoses / Procedures Referred By Contac t Referred To Contact [facility] Diagnoses Intractable chronic migraine without aura and without status migrainosus Abnormal involuntary movement Procedures CONSULT TO PHYSICAL THERAPY PHYSICAL THERAPY EVALUATION HIGH [facility] 45 MINS Tracee Mcintyre MD [address] [place] [address] [facility] [place] [address] [place] [address] Referral ID Status Reason Start Date Expiration Date V isits Requested Visits Authorized [id number] Authorized 02/05/2021 02/04/2022 99 99 Reason Comments [...] NEW HIGH MDM 60-74 MINUTES Peter Knight, LIO.MANAGED SERVICES CONSULTANT [address] [place] [address] Referral ID Status Reason Start Date Expiration Date V isits Requested Visits Authorized [id number] Closed PCP Requested Referral 08/23/2021 08/23/2022 1 1 Reason Comments Allergic Reaction Onset prior to arriv al. Pt reports her face is burning and feels short of breath. 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 Reason [...] DIFFUSION CAPACITY (DLCO) DIFFUSING CAPACITY Landen Clark APRN.MANAGED SERVICES CONSULTANT [address] [place] [address] [facility] [place] [address] [place] [address] Referral ID Status Reason Start Date Expiration Date V isits Requested Visits Authorized [id number] Closed Auto-Generate d Referral 09/19/2021 10/19/2022 1 [...] BRNCDILAT RSPSE SPMTRY PRE&POST-BRNCDILAT ADMN Landen Clark APRN.MANAGED SERVICES CONSULTANT [address] [place] [address] [facility] [place] [address] [place], [place] [phone] Referral ID Status Reason Start Date Expiration Date V isits Requested Visits Authorized [id number] Closed Auto-Generate d Referral 09/19/2021 10/19/2022 1 [...] LUNG VOLUMES W/WO AIRWAY RESIST Landen Clark APRN.MANAGED SERVICES CONSULTANT [address] [place] [address] [facility] [place] [address] [place], [place] [phone] Referral ID Status Reason Start Date Expiration Date V isits Requested Visits Authorized [id number] Closed Auto-Generate d Referral 09/21/2021 02/04/2022 1 1 Reason Comments Radio Gen A21 Reason Comments discuss test results Reason Comments Follow Up Chronic Migraine Reason Comments Palpitations Reason Comments Allergic Rhinitis Asthma Reason Comments coagulpathy Reason Comments Established Patient Reason Comments Appointment Download Pap Therapy Follow UP 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 Reason Comments Sleep Apnea Reason Comments Breast screening Reason Comments Patient Update Reason Comments Follow Up Migraine Specialty Diagnoses / Procedures Referred By Contac t Referred To Contact Diagnoses Chronic migraine without aura, intractable, without status migrainosus Procedures PROVIDER ORDERED FOLLOW UP OFFICE/OUTPATIENT NEW HIGH MDM 60-74 MINUTES Bhargavi Saldana PA-C [address] [place] [phone] Referral ID Status Reason Start Date Expiration Date V isits Requested Visits Authorized [id number] Closed PCP Requested Referral 01/18/2022 10/19/2022 1 [...] up Specialty Diagnoses / Procedures [facility] Referred To Contact Diagnoses Migraine without aura and without status migrainosus, not intractable Procedures PROVIDER ORDERED FOLLOW UP OFFICE/OUTPATIENT NEW HIGH MDM 60-74 MINUTES Bhargavi Saldana PA-C [address] [employer] [place] [phone] Referral ID Status Reason Start Date Expiration Date V isits Requested Visits Authorized [id number] Closed PCP Requested Referral 04/16/2022 01/16/2023 1 1 Reason Comments PAP Therapy Follow Up DOWNLOAD Reason Comments Qualitative platelet disorder 5 month fo llow up Reason Comments Med Refill Reason Comments Follow-up Ordered Prescriptions (unrec ognized section and content) [...] DATE CREATED AUTHOR AUTHOR'S ORGANIZ ATION 04/26/2021 [facility] DATE CREATED AUTHOR AUTHOR'S ORGANIZ ATION 07/27/2021 [facility] DATE CREATED AUTHOR AUTHOR'S ORGANIZ ATION 12/22/2021 [facility] DATE CREATED AUTHOR AUTHOR'S ORGANIZ ATION 04/07/2022 [facility] DATE CREATED AUTHOR AUTHOR'S ORGANIZ ATION 06/17/2022 [facility] DATE CREATED AUTHOR AUTHOR'S ORGANIZ ATION 10/03/2022 [facility] DATE CREATED AUTHOR AUTHOR'S ORGANIZ ATION 12/19/2022 [facility] DATE CREATED AUTHOR AUTHOR'S ORGANIZ ATION 01/18/2023 [facility] DATE CREATED AUTHOR AUTHOR'S ORGANIZ ATION 02/14/2023 [facility] DATE CREATED AUTHOR AUTHOR'S ORGANIZ ATION 04/05/2023 [facility] DATE CREATED AUTHOR AUTHOR'S ORGANIZ ATION 04/09/2023 [facility] DATE CREATED AUTHOR AUTHOR'S ORGANIZ ATION 05/09/2023 [facility] Care Teams (unrecognized sec tion and content) Drone Pilot Relationship Specialty Start Date End Date Cas Dowell MD PCP - General 09/04/11 Drone Pilot Relationship Specialty Start Date End Date Cas Dowell MD PCP - General 09/04/11 Drone Pilot Relationship Specialty Start Date End Date Cas Dowell PCP - General Family Practice 02/20/14 Drone Pilot Relationship Specialty Start Date End Date Cas Dowell MD PCP - General 09/04/11 Drone Pilot Relationship Specialty Start Date End Date Cas Dowell PCP - General Family Practice 02/20/14 Drone Pilot Relationship Specialty Start Date End Date Cas Dowell PCP - General Family Practice 02/20/14 Drone Pilot Relationship Specialty Start Date End Date Cas Dowell PCP - General Family Practice 02/20/14 Drone Pilot Relationship Specialty Start Date End Date Cas Dowell PCP - General Family Practice 02/20/14 Drone Pilot Relationship Specialty Start Date End Date NadCas howe PCP - General Family Practice 02/20/14 Drone Pilot Relationship Specialty Start Date End Date NadelCas almonte PCP - General Family Practice 02/20/14 Drone Pilot Relationship Specialty Start Date End Date Cas Dowell PCP - General Family Practice 02/20/14 Drone Pilot Relationship Specialty Start Date End Date Cas Dowell MD PCP - General 09/04/11 Drone Pilot Relationship Specialty Start Date End Date Cas Dowell PCP - General Family Practice 02/20/14 Drone Pilot Relationship Specialty Start Date End Date Cas Dowell PCP - General Family Practice 02/20/14 Drone Pilot Relationship Specialty Start Date End Date Cas Dowell PCP - General Family Practice 02/20/14 Drone Pilot Relationship Specialty Start Date End Date Cas Dowell PCP - General Family Practice 02/20/14 Drone Pilot Relationship Specialty Start Date End Date Cas Dowell PCP - General Family Practice 02/20/14 Drone Pilot Relationship Specialty Start Date End Date Cas Dowell PCP - General Family Practice 02/20/14 Drone Pilot Relationship Specialty Start Date End Date Cas Dowell PCP - General Family Practice 02/20/14 Drone Pilot Relationship Specialty Start Date End Date Cas Dowell PCP - General Family Practice 02/20/14 Sai Perez MD [address] [place], [place] [id number] Primary Staff Physician Cardiology 07/21/21 Drone Pilot Relationship Specialty Start Date End Date Cas Dowell PCP - General Family Practice 02/20/14 Sai Perez MD [address] [place] [address] Primary Staff Physician Cardiology 07/21/21 Drone Pilot Relationship Specialty Start Date End Date Cas Dowell PCP - General Family Practice 02/20/14 Sai Perez MD [address] [place] [address] Primary Staff Physician Cardiology 07/21/21 Drone Pilot Relationship Specialty Start Date End Date Cas Dowell PCP - General Family Practice 02/20/14 Drone Pilot Relationship Specialty Start Date End Date Cas Dowell PCP - General Family Practice 02/20/14 Sai Perez MD [address] [place] [address] Primary Staff Physician Cardiology 07/21/21 Drone Pilot Relationship Specialty Start Date End Date Cas Dowell PCP - General Family Practice 02/20/14 Sai Perez MD [address] [place] [address] Primary Staff Physician Cardiology 07/21/21 Drone Pilot Relationship Specialty Start Date End Date Cas Dowell PCP - General Family Practice 02/20/14 Sai Perez MD [address] [place] [address] Primary Staff Physician Cardiology 07/21/21 Rubens Tim [address] [place], [place] [address], [place] [address] Referring BUCKLE SEWER MACHINE 08/05/21 Drone Pilot Relationship Specialty Start Date End Date Cas Dowell PCP - General Family Practice 02/20/14 Sai Perez MD [address] [place] [address] Primary Staff Physician Cardiology 07/21/21 Rubens Tim [address] [facility] [place] Referring BUCKLE SEWER MACHINE 08/05/21 Drone Pilot Relationship Specialty Start Date End Date Cas Dowell PCP - General Family Practice 02/20/14 Sai Perez MD [address] [place] [address] Primary Staff Physician Cardiology 07/21/21 Rubens Tim [address] [place], [place] [address] [address] Referring BUCKLE SEWER MACHINE 08/05/21 Drone Pilot Relationship Specialty Start Date End Date Cas Dowell PCP - General Family Practice 02/20/14 Sai Perez MD [address] [place] [address] Primary Staff Physician Cardiology 07/21/21 Rubens Tim [address] [place], [place] [address] [address] Referring BUCKLE SEWER MACHINE 08/05/21 Drone Pilot Relationship Specialty Start Date End Date Cas Dowell PCP - [facility] Practice 02/20/14 Sai Perez MD [address] [place] [address] Primary Staff Physician Cardiology 07/21/21 Rubens Tim [address] [place], [place] [address] [address] Referring BUCKLE SEWER MACHINE 08/05/21 Drone Pilot Relationship Specialty Start Date End Date Cas Dowell PCP - [facility] Family Practice 02/20/14 Sai Perez MD [address] [place] [address] Primary Staff Physician Cardiology 07/21/21 Rubens Tim [address] [place], [place] [address] [place] [address] Referring BUCKLE SEWER MACHINE 08/05/21 Drone Pilot Relationship Specialty Start Date End Date Cas Dowell PCP - General Family Practice 02/20/14 Sai Perez MD [address] [place] [address] Primary Staff Physician Cardiology 07/21/21 Rubens Tim, DO [address] [place] [address] Referring BUCKLE SEWER MACHINE 08/05/21 Drone Pilot Relationship Specialty Start Date End Date Cas Dowell PCP - General Family Practice 02/20/14 Sai Perez MD [address] [place] [address] Primary Staff Physician Cardiology 07/21/21 Rubens Tim, DO [address] [place], [facility]11 Referring BUCKLE SEWER MACHINE 08/05/21 Drone Pilot Relationship Specialty Start Date End Date Cas Dowell PCP - General Family Practice 02/20/14 Sai Perez MD [address] [place] [address] Primary Staff Physician Cardiology 07/21/21 Rubens Tim, DO [address] [place], [facility]11 Referring BUCKLE SEWER MACHINE 08/05/21 Drone Pilot Relationship Specialty Start Date End Date Cas Dowell PCP - General Family Practice 02/20/14 Sai Perez MD [address] [place] [address] Primary Staff Physician Cardiology 07/21/21 Rubens Tim, DO [address] [place], [place] [id number] Referring BUCKLE SEWER MACHINE 08/05/21 Drone Pilot Relationship Specialty Start Date End Date Cas Dowell PCP - General Family Practice 02/20/14 Sai Perez MD [address] [place] [address] Primary Staff Physician Cardiology 07/21/21 Rubens Tim, DO [address] [place] [address] Referring BUCKLE SEWER MACHINE 08/05/21 Drone Pilot Relationship Specialty Start Date End Date Cas Dowell MD PCP - General 09/04/11 Drone Pilot Relationship Specialty Start Date End Date Cas Dowell PCP - General Family Practice 02/20/14 Sai Perez MD [address] [place] [address] Primary Staff Physician Cardiology 07/21/21 Rubens Tim, DO [address] [place] [address] Referring BUCKLE SEWER MACHINE 08/05/21 Drone Pilot Relationship Specialty Start Date End Date Cas Dowell PCP - General Family Practice 02/20/14 Sai Perez MD [address] [place] [address] Primary Staff Physician Cardiology 07/21/21 Rubens Tim, DO [address] [place] [address] Referring BUCKLE SEWER MACHINE 08/05/21 Drone Pilot Relationship Specialty Start Date End Date Cas Dowell PCP - General Family Practice 02/20/14 Sai Perez MD [address] [place] [address] Primary Staff Physician Cardiology 07/21/21 Rubens Tim, DO [address] [place], [place] [address] Referring BUCKLE SEWER MACHINE 08/05/21 Drone Pilot Relationship Specialty Start Date End Date Cas Dowell PCP - General Family Practice 02/20/14 Sai Perez MD [address] [place] [address] Primary Staff Physician Cardiology 07/21/21 Rubens Tim, DO [address] [place], [facility]11 Referring BUCKLE SEWER MACHINE 08/05/21 Drone Pilot Relationship Specialty Start Date End Date Cas Dowell PCP - General Family Practice 02/20/14 Sai Perez MD [address] [place] [address] Primary Staff Physician Cardiology 07/21/21 Rubens Tim, DO [address] [place], [place] [address] Referring BUCKLE SEWER MACHINE 08/05/21 Drone Pilot Relationship Specialty Start Date End Date Csa Dowell PCP - General Family Practice 02/20/14 Sai Perez MD [address] [place] [address] Primary Staff Physician Cardiology 07/21/21 Rubens Tim, DO [address] [place] [address] Referring BUCKLE SEWER MACHINE 08/05/21 Drone Pilot Relationship Specialty Start Date End Date Cas Dowell PCP - General Family Practice 02/20/14 Sai Perez MD [address] [place] [address] Primary Staff Physician Cardiology 07/21/21 Rubens Tim, DO [address] [place], [facility]11 Referring BUCKLE SEWER MACHINE 08/05/21 Drone Pilot Relationship Specialty Start Date End Date Cas Dowell PCP - General Family Practice 02/20/14 Sai Perez MD [address] [place] [address] Primary Staff Physician Cardiology 07/21/21 Rubens Tim, DO [address] [place], [facility]11 Referring BUCKLE SEWER MACHINE 08/05/21 Drone Pilot Relationship Specialty Start Date End Date Cas Dowell PCP - General Family Practice 02/20/14 Sai Perez MD [address] [place] [address] Primary Staff Physician Cardiology 07/21/21 Rubens Tim, DO [address] [place] [address] Referring BUCKLE SEWER MACHINE 08/05/21 Drone Pilot Relationship Specialty Start Date End Date Cas Dowell PCP - General Family Practice 02/20/14 Sai Perez MD [address] [place] [address] Primary Staff Physician Cardiology 07/21/21 Rubens Tim, DO [address] [place] [address] Referring BUCKLE SEWER MACHINE 08/05/21 Drone Pilot Relationship Specialty Start Date End Date Cas Dowell PCP - General Family Practice 02/20/14 Sai Perez MD [address] [place] [address] Primary Staff Physician Cardiology 07/21/21 Rubens Tim, DO [address] [place], [facility]11 Referring BUCKLE SEWER MACHINE 08/05/21 Drone Pilot Relationship Specialty Start Date End Date Cas Dowell PCP - General Family Practice 02/20/14 Sai Perez MD [address] [place] [address] Primary Staff Physician Cardiology 07/21/21 Rubens Tim, DO [address] [place] [address] Referring BUCKLE SEWER MACHINE 08/05/21 Drone Pilot Relationship Specialty Start Date End Date Cas Dowell PCP - General Family Medicine 02/20/14 Sai Perez MD [address] [place] [address] Primary Staff Physician Cardiology 07/21/21 Rubens Tim, DO [address] [place] [address] Referring BUCKLE SEWER MACHINE 08/05/21 Drone Pilot Relationship Specialty Start Date End Date Cas Dowell PCP - General Family Medicine 02/20/14 Sai Perez MD [address] [place] [address] Primary Staff Physician Cardiology 07/21/21 Rubens Tim, DO [address] [place], [place] [address] Referring BUCKLE SEWER MACHINE 08/05/21 Drone Pilot Relationship Specialty Start Date End Date Cas Dowell PCP - General Family Medicine 02/20/14 Sai Perez MD [address] [place] [address] Primary Staff Physician Cardiology 07/21/21 Rubens Tim, DO [address] [place] [address] Referring BUCKLE SEWER MACHINE 08/05/21 Drone Pilot Relationship Specialty Start Date End Date Cas Dowell PCP - General Family Medicine 02/20/14 Sai Perez MD [address] [place] [address] Primary Staff Physician Cardiology 07/21/21 Rubens Tim, DO [address] [place] [address] Referring BUCKLE SEWER MACHINE 08/05/21 Drone Pilot Relationship Specialty Start Date End Date Cas Dowell PCP - General Family Medicine 02/20/14 Sai Perez MD [address] [place] [address] Primary Staff Physician Cardiology 07/21/21 Rubens Tim, DO [address] [place] [address] Referring BUCKLE SEWER MACHINE 08/05/21 Drone Pilot Relationship Specialty Start Date End Date Cas Dowell PCP - General Family Medicine 02/20/14 Sai Perez MD [address] [place] [address] Primary Staff Physician Cardiology 07/21/21 Rubens Tim, DO [address] [place] [address] Referring BUCKLE SEWER MACHINE 08/05/21 Drone Pilot Relationship Specialty Start Date End Date Cas Dowell PCP - General [facility] Medicine 02/20/14 Sai Perez MD [address] [place] [address] Primary Staff Physician Cardiology 07/21/21 Rubens Tim, DO [address] [place] [address] Referring BUCKLE SEWER MACHINE 08/05/21 Drone Pilot Relationship Specialty Start Date End Date Cas Dowell PCP - General Family Medicine 02/20/14 Sai Perez MD [address] [place] [address] Primary Staff Physician Cardiology 07/21/21 Rubens Tim, DO [address] [place], [place] [address] Referring BUCKLE SEWER MACHINE 08/05/21 Drone Pilot Relationship Specialty Start Date End Date Cas Dowell PCP - General Family Medicine 02/20/14 Sai Perez MD [address] [place] [address] Primary Staff Physician Cardiology 07/21/21 Rubens Tim, DO [address] [place], [facility]11 Referring BUCKLE SEWER MACHINE 08/05/21 Drone Pilot Relationship Specialty Start Date End Date Cas Dowell PCP - General Family Medicine 02/20/14 Sai Perez MD [address] [place] [address] Primary Staff Physician Cardiology 07/21/21 Rubens Tim, DO [address] [place], [place] [address] Referring BUCKLE SEWER MACHINE 08/05/21 Drone Pilot Relationship Specialty Start Date End Date Cas Dowell PCP - General Family Medicine 02/20/14 Sai Perez MD [address] [place] [address] Primary Staff Physician Cardiology 07/21/21 Rubens Tim, DO [address] [place], [place] [address] Referring BUCKLE SEWER MACHINE 08/05/21 Drone Pilot Relationship Specialty Start Date End Date Cas Dowell PCP - General Family Medicine 02/20/14 Sai Perez MD [address] [place] [address] Primary Staff Physician Cardiology 07/21/21 Rubens Tim, DO [address] [place], [facility]11 Referring BUCKLE SEWER MACHINE 08/05/21 Drone Pilot Relationship Specialty Start Date End Date Cas Dowell PCP - General Family Medicine 02/20/14 Sai Perez MD [address] [place] [address] Primary Staff Physician Cardiology 07/21/21 Rubens Tim, DO [address] [place] [address] Referring BUCKLE SEWER MACHINE 08/05/21 Drone Pilot Relationship Specialty Start Date End Date Cas Dowell MD PCP - General 09/04/11 Drone Pilot Relationship Specialty Start Date End Date Cas Dowell PCP - General Family Medicine 02/20/14 Sai Perez MD [address] [place] [address] Primary Staff Physician Cardiology 07/21/21 Rubens Tim, DO [address] [place] [address] Referring BUCKLE SEWER MACHINE 08/05/21 Drone Pilot Relationship Specialty Start Date End Date Cas Dowell PCP - General Family Medicine 02/20/14 Sai Perez MD [address] [place] [address] Primary Staff Physician Cardiology 07/21/21 Rubens Tim, DO [address] [place], [facility]11 Referring BUCKLE SEWER MACHINE 08/05/21 Drone Pilot Relationship Specialty Start Date End Date Cas Dowell PCP - General Family Medicine 02/20/14 Sai Perez MD [address] [place] [address] Primary Staff Physician Cardiology 07/21/21 Rubens Tim, DO [address] [place], [facility]11 Referring BUCKLE SEWER MACHINE 08/05/21 Drone Pilot Relationship Specialty Start Date End Date Cas Dowell PCP - General Family Medicine 02/20/14 Sai Perez MD [address] [place] [address] Primary Staff Physician Cardiology 07/21/21 Rubens Tim, DO [address] [place] [address] Referring BUCKLE SEWER MACHINE 08/05/21 Drone Pilot Relationship Specialty Start Date End Date Cas Dowell PCP - General Family Medicine 02/20/14 Sai Perez MD [address] [place] [address] Primary Staff Physician Cardiology 07/21/21 Rubens Tim, DO [address] [place], [facility]11 Referring BUCKLE SEWER MACHINE 08/05/21 Drone Pilot Relationship Specialty Start Date End Date Cas Dwoell PCP - General Family Medicine 02/20/14 Sai Perez MD [address] [place] [address] Primary Staff Physician Cardiology 07/21/21 Rubens Tim, DO [address] [place], [facility]11 Referring BUCKLE SEWER MACHINE 08/05/21 Drone Pilot Relationship Specialty Start Date End Date Cas Dowell PCP - General Family Medicine 02/20/14 Sai Perez MD [address] [place] [address] Primary Staff Physician Cardiology 07/21/21 Rubens Tim, DO [address] [place], [facility]11 Referring BUCKLE SEWER MACHINE 08/05/21 Drone Pilot Relationship Specialty Start Date End Date Cas Dowell PCP - General Family Medicine 02/20/14 Sai Perez MD [address] [place] [address] Primary Staff Physician Cardiology 07/21/21 Rubens Tim, DO [address] [facility] [address] [place], [place] [address] Referring BUCKLE SEWER MACHINE 08/05/21 Drone Pilot Relationship Specialty Start Date End Date Cas Dowell PCP - General Family Medicine 02/20/14 Sai Perez MD [address] [place] [address] Primary Staff Physician Cardiology 07/21/21 Rubens Tim, DO [address] [facility] [address] [place], [facility]11 Referring BUCKLE SEWER MACHINE 08/05/21 Drone Pilot Relationship Specialty Start Date End Date Cas Dowell PCP - General Family Medicine 02/20/14 Sai Perez MD [address] [place] [address] Primary Staff Physician Cardiology 07/21/21 Rubens Tim DO [address] [place] [address] DR [place], [facility]11 Referring BUCKLE SEWER MACHINE 08/05/21 Drone Pilot Relationship Specialty Start Date End Date Cas Dowell MD [address] [place] [address] PCP - General Family Medicine 11/18/20 Drone Pilot Relationship Specialty Start Date End Date Cas Dowell MD PCP - General Family Medicine 12/06/22 Drone Pilot Relationship Specialty Start Date End Date Cas Dowell MD [address] [place] [address] PCP - General Family Medicine 11/18/20 Source Comments (unrecognize d section and content) In the event this informatio n is protected by the Federal Confidentiality of Alcohol and Drug Abuse Patient Records regulations: The Federal rules restrict any use of the information to criminally investigate or prosecute any alcohol or drug abuse patient.[facility] Hospital[facility] the event this information is protected by the Federal Confidentiality of Alcohol and Drug Abuse Patient Records regulations: The Federal rules restrict any use of the information to criminally investigate or prosecute any alcohol or drug abuse patient.[facility] HospitalIn the event this information is protected by the Federal Confidentiality of Alcohol and Drug Abuse Patient Records regulations: The Federal rules restrict any use of the information to criminally investigate or prosecute any alcohol or drug abuse patient.[facility] HospitalIn the event this information is protected by the Federal Confidentiality of Alcohol and Drug Abuse Patient Records regulations: The Federal rules restrict any use of the information to criminally investigate or prosecute any alcohol or drug abuse patient.[facility] HospitalIn the event this information is protected by the Federal Confidentiality of Alcohol and Drug Abuse Patient Records regulations: The Federal rules restrict any use of the information to criminally investigate or prosecute any alcohol or drug abuse patient.[facility] HospitalIn the event this information is protected by the Federal Confidentiality of Alcohol and Drug Abuse Patient Records regulations: The Federal rules restrict any use of the information to criminally investigate or prosecute any alcohol or drug abuse patient.[facility] HospitalIn the event this information is protected by the Federal Confidentiality of Alcohol and Drug Abuse Patient Records regulations: The Federal rules restrict any use of the information to criminally investigate or prosecute any alcohol or drug abuse patient.[facility] HospitalIn the event this information is protected by the Federal Confidentiality of Alcohol and Drug Abuse Patient Records regulations: The Federal rules restrict any use of the information to criminally investigate or prosecute any alcohol or drug abuse patient.[facility] HospitalIn the event this information is protected by the Federal Confidentiality of Alcohol and Drug Abuse Patient Records regulations: The Federal rules restrict any use of the information to criminally investigate or prosecute any alcohol or drug abuse patient.[facility] HospitalIn the event this information is protected by the Federal Confidentiality of Alcohol and Drug Abuse Patient Records regulations: The Federal rules restrict any use of the information to criminally investigate or prosecute any alcohol or drug abuse patient.[facility] HospitalIn the event this information is protected [...] or prosecute any alcohol or drug abuse patient.[facility] HospitalIn the event this information is protected by the Federal Confidentiality of Alcohol and Drug Abuse Patient Records regulations: The Federal rules restrict any use of the information to criminally investigate or prosecute any alcohol or drug abuse patient.[facility] HospitalIn the event this information is protected by the Federal Confidentiality of Alcohol and Drug Abuse Patient Records regulations: The Federal rules restrict any use of the information to criminally investigate or prosecute any alcohol or drug abuse patient.[facility] HospitalIn the event this information is protected by the Federal Confidentiality of Alcohol and Drug Abuse Patient Records regulations: The Federal rules restrict any use of the information to criminally investigate or prosecute any alcohol or drug abuse patient.[facility] HospitalIn the event this information is protected by the Federal Confidentiality of Alcohol and Drug Abuse Patient Records regulations: The Federal rules restrict any use of the information to criminally investigate or prosecute any alcohol or drug abuse patient.[facility] HospitalIn the event this information is protected by the Federal Confidentiality of Alcohol and Drug Abuse Patient Records regulations: The Federal rules restrict any use of the information to criminally investigate or prosecute any alcohol or drug abuse patient.[facility] HospitalIn the event this information is protected by the Federal Confidentiality of Alcohol and Drug Abuse Patient Records regulations: The Federal rules restrict any use of the information to criminally investigate or prosecute any alcohol or drug abuse patient.[facility] HospitalIn the event this information is protected by the Federal Confidentiality of Alcohol and Drug Abuse Patient Records regulations: The Federal rules restrict any use of the information to criminally investigate or prosecute any alcohol or drug abuse patient.[facility] HospitalIn the event this information is protected by the Federal Confidentiality of Alcohol and Drug Abuse Patient Records regulations: The Federal rules restrict any use of the information to criminally investigate or prosecute any alcohol or drug abuse patient.[facility] HospitalIn the event this information is protected by the Federal Confidentiality of Alcohol and Drug Abuse Patient Records regulations: The Federal rules restrict any use of the information to criminally investigate or prosecute any alcohol or drug abuse patient.[facility] HospitalIn the event this information is protected by the Federal Confidentiality of Alcohol and Drug Abuse Patient Records regulations: The Federal rules restrict any use of the information to criminally investigate or prosecute any alcohol or drug abuse patient.[facility] HospitalIn the event this information is protected by the Federal Confidentiality of Alcohol and Drug Abuse Patient Records regulations: The Federal rules restrict any use of the information to criminally investigate or prosecute any alcohol or drug abuse patient.[facility] HospitalIn the event this information is protected by the Federal Confidentiality of Alcohol and Drug Abuse Patient Records regulations: The Federal rules restrict any use of the information to criminally investigate or prosecute any alcohol or drug abuse patient.[facility] HospitalIn the event this information is protected by the Federal Confidentiality of Alcohol and Drug Abuse Patient Records regulations: The Federal rules restrict any use of the information to criminally investigate or prosecute any alcohol or drug abuse patient.[facility] HospitalIn the event this information is protected by the Federal Confidentiality of Alcohol and Drug Abuse Patient Records regulations: The Federal rules restrict any use of the information to criminally investigate or prosecute any alcohol or drug abuse patient.[facility] HospitalIn the event this information is protected by the Federal Confidentiality of Alcohol and Drug Abuse Patient Records regulations: The Federal rules restrict any use of the information to criminally investigate or prosecute any alcohol or drug abuse patient.[facility] HospitalIn the event this information is protected by the Federal Confidentiality of Alcohol and Drug Abuse Patient Records regulations: The Federal rules restrict any use of the information to criminally investigate or prosecute any alcohol or drug abuse patient.[facility] HospitalIn the event this information is protected by the Federal Confidentiality of Alcohol and Drug Abuse Patient Records regulations: The Federal rules restrict any use of the information to criminally investigate or prosecute any alcohol or drug abuse patient.[facility] HospitalIn the event this information is protected by the Federal Confidentiality of Alcohol and Drug Abuse Patient Records regulations: The Federal rules restrict any use of the information to criminally investigate or prosecute any alcohol or drug abuse patient.[facility] HospitalIn the event this information is protected by the Federal Confidentiality of Alcohol and Drug Abuse Patient Records regulations: The Federal rules restrict any use of the information to criminally investigate or prosecute any alcohol or drug abuse patient.[facility] HospitalIn the event this information is protected by the Federal Confidentiality of Alcohol and Drug Abuse Patient Records regulations: The Federal rules restrict any use of the information to criminally investigate or prosecute any alcohol or drug abuse patient.[facility] HospitalIn the event this information is protected by the Federal Confidentiality of Alcohol and Drug Abuse Patient Records regulations: The Federal rules restrict any use of the information to criminally investigate or prosecute any alcohol or drug abuse patient.[facility] HospitalIn the event this information is protected by the Federal Confidentiality of Alcohol and Drug Abuse Patient Records regulations: The Federal rules restrict any use of the information to criminally investigate or prosecute any alcohol or drug abuse patient.[facility] HospitalIn the event this information is protected by the Federal Confidentiality of Alcohol and Drug Abuse Patient Records regulations: The Federal rules restrict any use of the information to criminally investigate or prosecute any alcohol or drug abuse patient.[facility] HospitalIn the event this information is protected by the Federal Confidentiality of Alcohol and Drug Abuse Patient Records regulations: The Federal rules restrict any use of the information to criminally investigate or prosecute any alcohol or drug abuse patient.[facility] HospitalIn the event this information is protected by the Federal Confidentiality of Alcohol and Drug Abuse Patient Records regulations: The Federal rules restrict any use of the information to criminally investigate or prosecute any alcohol or drug abuse patient.[facility] HospitalIn the event this information is protected by the Federal Confidentiality of Alcohol and Drug Abuse Patient Records regulations: The Federal rules restrict any use of the information to criminally investigate or prosecute any alcohol or drug abuse patient.[facility] HospitalIn the event this information is protected by the Federal Confidentiality of Alcohol and Drug Abuse Patient Records regulations: The Federal rules restrict any use of the information to criminally investigate or prosecute any alcohol or drug abuse patient.[facility] HospitalIn the event this information is protected by the Federal Confidentiality of Alcohol and Drug Abuse Patient Records regulations: The Federal rules restrict any use of the information to criminally investigate or prosecute any alcohol or drug abuse patient.[facility] HospitalIn the event this information is protected by the Federal Confidentiality of Alcohol and Drug Abuse Patient Records regulations: The Federal rules restrict any use of the information to criminally investigate or prosecute any alcohol or drug abuse patient.[facility] HospitalIn the event this information is protected by the Federal Confidentiality of Alcohol and Drug Abuse Patient Records regulations: The Federal rules restrict any use of the information to criminally investigate or prosecute any alcohol or drug abuse patient.[facility] HospitalIn the event this information is protected by the Federal Confidentiality of Alcohol and Drug Abuse Patient Records regulations: The Federal rules restrict any use of the information to criminally investigate or prosecute any alcohol or drug abuse patient.[facility] HospitalIn the event this information is protected by the Federal Confidentiality of Alcohol and Drug Abuse Patient Records regulations: The Federal rules restrict any use of the information to criminally investigate or prosecute any alcohol or drug abuse patient.[facility] HospitalIn the event this information is protected by the Federal Confidentiality of Alcohol and Drug Abuse Patient Records regulations: The Federal rules restrict any use of the information to criminally investigate or prosecute any alcohol or drug abuse patient.[facility] HospitalIn the event this information is protected by the Federal Confidentiality of Alcohol and Drug Abuse Patient Records regulations: The Federal rules restrict any use of the information to criminally investigate or prosecute any alcohol or drug abuse patient.[facility] HospitalIn the event this information is protected by the Federal Confidentiality of Alcohol and Drug Abuse Patient Records regulations: The Federal rules restrict any use of the information to criminally investigate or prosecute any alcohol or drug abuse patient.[facility] HospitalIn the event this information is protected by the Federal Confidentiality of Alcohol and Drug Abuse Patient Records regulations: The Federal rules restrict any use of the information to criminally investigate or prosecute any alcohol or drug abuse patient.[facility] HospitalIn the event this information is protected by the Federal Confidentiality of Alcohol and Drug Abuse Patient Records regulations: The Federal rules restrict any use of the information to criminally investigate or prosecute any alcohol or drug abuse patient.[facility] HospitalIn the event this information is protected by the Federal Confidentiality of Alcohol and Drug Abuse Patient Records regulations: The Federal rules restrict any use of the information to criminally investigate or prosecute any alcohol or drug abuse patient.[facility] HospitalIn the event this information is protected by the Federal Confidentiality of Alcohol and Drug Abuse Patient Records regulations: The Federal rules restrict any use of the information to criminally investigate or prosecute any alcohol or drug abuse patient.[facility] HospitalIn the event this information is protected by the Federal Confidentiality of Alcohol and Drug Abuse Patient Records regulations: The Federal rules restrict any use of the information to criminally investigate or prosecute any alcohol or drug abuse patient.[facility] HospitalIn the event this information is protected by the Federal Confidentiality of Alcohol and Drug Abuse Patient Records regulations: The Federal rules restrict any use of the information to criminally investigate or prosecute any alcohol or drug abuse patient.[facility] HospitalIn the event this information is protected by the Federal Confidentiality of Alcohol and Drug Abuse Patient Records regulations: The Federal rules restrict any use of the information to criminally investigate or prosecute any alcohol or drug abuse patient.[facility] HospitalIn the event this information is protected by the Federal Confidentiality of Alcohol and Drug Abuse Patient Records regulations: The Federal rules restrict any use of the information to criminally investigate or prosecute any alcohol or drug abuse patient.[facility] HospitalIn the event this information is protected by the Federal Confidentiality of Alcohol and Drug Abuse Patient Records regulations: The Federal rules restrict any use of the information to criminally investigate or prosecute any alcohol or drug abuse patient.[facility] HospitalIn the event this information is protected by the Federal Confidentiality of Alcohol and Drug Abuse Patient Records regulations: The Federal rules restrict any use of the information to criminally investigate or prosecute any alcohol or drug abuse patient.[facility] HospitalIn the event this information is protected by the Federal Confidentiality of Alcohol and Drug Abuse Patient Records regulations: The Federal rules restrict any use of the information to criminally investigate or prosecute any alcohol or drug abuse patient.[facility] HospitalIn the event this information is protected by the Federal Confidentiality of Alcohol and Drug Abuse Patient Records regulations: The Federal rules restrict any use of the information to criminally investigate or prosecute any alcohol or drug abuse patient.[facility] HospitalIn the event this information is protected by the Federal Confidentiality of Alcohol and Drug Abuse Patient Records regulations: The Federal rules restrict any use of the information to criminally investigate or prosecute any alcohol or drug abuse patient.[facility] HospitalIn the event this information is protected [...] or prosecute any alcohol or drug abuse patient.[facility] HospitalIn the event this information is protected by the Federal Confidentiality of Alcohol and Drug Abuse Patient Records regulations: The Federal rules restrict any use of the information to criminally investigate or prosecute any alcohol or drug abuse patient.[facility] HospitalIn the event this information is protected by the Federal Confidentiality of Alcohol and Drug Abuse Patient Records regulations: The Federal rules restrict any use of the information to criminally investigate or prosecute any alcohol or drug abuse patient.[facility] HospitalIn the event this information is protected by the Federal Confidentiality of Alcohol and Drug Abuse Patient Records regulations: The Federal rules restrict any use of the information to criminally investigate or prosecute any alcohol or drug abuse patient.[facility] HospitalIn the event this information is protected by the Federal Confidentiality of Alcohol and Drug Abuse Patient Records regulations: The Federal rules restrict any use of the information to criminally investigate or prosecute any alcohol or drug abuse patient.[facility] HospitalIn the event this information is protected by the Federal Confidentiality of Alcohol and Drug Abuse Patient Records regulations: The Federal rules restrict any use of the information to criminally investigate or prosecute any alcohol or drug abuse patient.[facility] HospitalIn the event this information is protected by the Federal Confidentiality of Alcohol and Drug Abuse Patient Records regulations: The Federal rules restrict any use of the information to criminally investigate or prosecute any alcohol or drug abuse patient.[facility] HospitalIn the event this information is protected by the Federal Confidentiality of Alcohol and Drug Abuse Patient Records regulations: The Federal rules restrict any use of the information to criminally investigate or prosecute any alcohol or drug abuse patient.[facility] HospitalIn the event this information is protected by the Federal Confidentiality of Alcohol and Drug Abuse Patient Records regulations: The Federal rules restrict any use of the information to criminally investigate or prosecute any alcohol or drug abuse patient.[facility] HospitalIn the event this information is protected by the Federal Confidentiality of Alcohol and Drug Abuse Patient Records regulations: The Federal rules restrict any use of the information to criminally investigate or prosecute any alcohol or drug abuse patient.[facility] HospitalIn the event this information is protected by the Federal Confidentiality of Alcohol and Drug Abuse Patient Records regulations: The Federal rules restrict any use of the information to criminally investigate or prosecute any alcohol or drug abuse patient.[facility] HospitalIn the event this information is protected by the Federal Confidentiality of Alcohol and Drug Abuse Patient Records regulations: The Federal rules restrict any use of the information to criminally investigate or prosecute any alcohol or drug abuse patient.[facility] HospitalIn the event this information is protected by the Federal Confidentiality of Alcohol and Drug Abuse Patient Records regulations: The Federal rules restrict any use of the information to criminally investigate or prosecute any alcohol or drug abuse patient.[facility] HospitalIn the event this information is protected by the Federal Confidentiality of Alcohol and Drug Abuse Patient Records regulations: The Federal rules restrict any use of the information to criminally investigate or prosecute any alcohol or drug abuse patient.[facility] HospitalIn the event this information is protected by the Federal Confidentiality of Alcohol and Drug Abuse Patient Records regulations: The Federal rules restrict any use of the information to criminally investigate or prosecute any alcohol or drug abuse patient.[facility] HospitalIn the event this information is protected by the Federal Confidentiality of Alcohol and Drug Abuse Patient Records regulations: The Federal rules restrict any use of the information to criminally investigate or prosecute any alcohol or drug abuse patient.[facility] HospitalIn the event this information is protected by the Federal Confidentiality of Alcohol and Drug Abuse Patient Records regulations: The Federal rules restrict any use of the information to criminally investigate or prosecute any alcohol or drug abuse patient.[facility] HospitalIn the event this information is protected by the Federal Confidentiality of Alcohol and Drug Abuse Patient Records regulations: The Federal rules restrict any use of the information to criminally investigate or prosecute any alcohol or drug abuse patient.[facility] HospitalIn the event this information is protected by the Federal Confidentiality of Alcohol and Drug Abuse Patient Records regulations: The Federal rules restrict any use of the information to criminally investigate or prosecute any alcohol or drug abuse patient.[facility] HospitalIn the event this information is protected by the Federal Confidentiality of Alcohol and Drug Abuse Patient Records regulations: The Federal rules restrict any use of the information to criminally investigate or prosecute any alcohol or drug abuse patient.[facility] HospitalIn the event this information is protected by the Federal Confidentiality of Alcohol and Drug Abuse Patient Records regulations: The Federal rules restrict any use of the information to criminally investigate or prosecute any alcohol or drug abuse patient.[facility] HospitalIn the event this information is protected by the Federal Confidentiality of Alcohol and Drug Abuse Patient Records regulations: The Federal rules restrict any use of the information to criminally investigate or prosecute any alcohol or drug abuse patient.[facility] HospitalIn the event this information is protected by the Federal Confidentiality of Alcohol and Drug Abuse Patient Records regulations: The Federal rules restrict any use of the information to criminally investigate or prosecute any alcohol or drug abuse patient.[facility] FOR RECORDS PERTAINING TO PATIENTS WHO [...] BE BASED ON THE PRIMARY CLINICAL RECORDS. [facility] [employer] [facility]. provides no warranty or guarantee of the accuracy or completeness of information in this document.
[2023-07-02] MEDS: 0.9 % SODIUM CHLORIDE 1,000 ML 1000 ML IV (00:42)
[2023-07-02] MEDS: DIPHENHYDRAMINE HCL 50 MG/ML VIAL 25 MG IV (00:42)
[2023-07-02] MEDS: FAMOTIDINE/PF 20 MG/2 ML VIAL 40 MG IV (00:44)
[2023-07-02] MEDS: EPINEPHRINE HCL PF 1 MG/ML AMPULE 0.299999999999999989 MG SUBQ (00:45)
[2023-07-02] MEDS: METHYLPREDNISOLONE SOD SUCC PF 125 MG/2 ML VIAL IVP (00:53)
[2023-07-02 00:56] VITALS: BP 141/68
[2023-07-02 00:57] VITALS: PULSE 85; O2SAT 100
[2023-07-02 01:00] VITALS: PULSE 68; O2SAT 96
--- NOTE | 2023-07-02 01:16 | ED.ALLEREA1 ---
HPI - Allergic Reaction General Chief complaint: Allergic Reaction Stated complaint: POSS ALLERGIC REACTION Time Seen by Provider: 07/02/23 00:25 History of Present Illness HPI narrative: This 37-year-old female is brought to the emergency department from the labor and delivery floor. 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 She states she was walking towards the kitchen area and smelled an air freshener and started breaking out in hives becoming short of breath. She gave herself an EpiPen and was brought to the emergency department by the nursing machining department supervisor. Upon arrival she is still short of breath unable to speak. She is flushed but does not have any actual hives. She denies any nausea or vomiting. Related Data Home Medications ?Medication ?Instructions ?Recorded ?Confirmed azelastine 137 mcg-fluticasone 50 1 spray intranasal BID 01/23/23 01/23/23 mcg/spray nasal spray baclofen 10 mg tablet 10 mg PO DAILY 01/23/23 01/23/23 budesonide-formoterol HFA 160 2 puff inhalation BID 01/23/23 01/23/23 mcg-4.5 mcg/actuation aerosol inhaler (Symbicort) cholecalciferol (vitamin D3) 10 5,000 unit PO DAILY 01/23/23 01/23/23 mcg (400 unit) capsule duloxetine 60 mg capsule,delayed 60 mg PO DAILY 01/23/23 01/23/23 release (Cymbalta) epinephrine 0.3 mg/0.3 mL 0.3 mg IM Q10M PRN anaphylaxis 01/23/23 01/23/23 injection, auto-injector (EpiPen 2-Elder) fluticasone furoate 27.5 2 spray intranasal DAILY 01/23/23 01/23/23 mcg/actuation nasal spray,suspension (Flonase Sensimist) fluticasone propionate 50 1 spray intranasal DAILY PRN nasal 01/23/23 01/23/23 mcg/actuation nasal congestion spray,suspension (Flonase Allergy Relief) fremanezumab-vfrm 225 mg/1.5 mL 225 mg subcut .monthly 01/23/23 01/31/23 subcutaneous auto-injector (Ajovy) lamotrigine 150 mg tablet 150 mg PO DAILY 01/23/23 01/23/23 levothyroxine 100 mcg tablet 100 mcg PO DAILY 01/23/23 01/31/23 (Synthroid) linagliptin 5 mg tablet (Tradjenta) 5 mg PO DAILY 01/23/23 01/31/23 magnesium oxide 400 mg PO DAILY 01/23/23 01/23/23 montelukast 10 mg tablet 10 mg PO DAILY 01/23/23 01/23/23 (Singulair) pantoprazole 40 mg tablet,delayed 40 mg PO DAILY 01/23/23 01/23/23 release pyridostigmine bromide 180 mg 180 mg PO BID 01/23/23 01/23/23 tablet,extended release rimegepant 75 mg disintegrating 75 mg PO DAILY PRN migraine 01/23/23 01/23/23 tablet (Nurtec ODT) headache sertraline 200 mg capsule 100 mg PO DAILY 01/23/23 01/23/23 tamsulosin 0.4 mg capsule 0.4 mg PO DAILY PRN kidney stones 01/23/23 01/23/23 ubrogepant 50 mg tablet (Ubrelvy) 50 mg PO DAILY PRN migraine 01/23/23 01/23/23 headache vitamin B complex (B 1 tab PO DAILY 01/23/23 01/23/23 Complex-Vitamin B12 tablet) zonisamide 100 mg capsule 200 mg PO DAILY 01/23/23 01/23/23 (Zonegran) Previous Rx's ?Medication ?Instructions ?Recorded sucralfate 1 gram tablet 1 g PO Q6H 12 weeks #336 tabs 01/31/23 Allergies Allergy/AdvReac Type Severity Reaction Status Date / Time aspirin Allergy Hives Verified 07/02/23 00:27 cefaclor [From Ceclor] Allergy SOB Verified 07/02/23 00:27 clindamycin Allergy Rash Verified 07/02/23 00:27 ibuprofen [From Motrin] Allergy SOB Verified 07/02/23 00:27 iodine Allergy Unknown Verified 07/02/23 00:27 Latex, Natural Rubber Allergy Rash Verified 07/02/23 00:27 Macrolide Antibiotics Allergy Verified 07/02/23 00:27 penicillin G Allergy SOB Verified 07/02/23 00:27 povidone-iodine Allergy Rash Verified 07/02/23 00:27 [From Betadine] Sulfa (Sulfonamide Allergy Difficulty Verified 07/02/23 00:27 Antibiotics) Breathing valacyclovir [From Valtrex] Allergy Anaphylaxis Verified 07/02/23 00:27 Review of Systems ROS Status of ROS 10 or more systems reviewed and unremarkable except as noted in history and below [facility] Medical History (Updated 07/02/23 @ 02:20 by Araseli Fernandez MD) Celiac disease ?K90.0 - Celiac disease (ICD-10) Intracranial hypertension ?G93.2 - Benign intracranial hypertension (ICD-10) PCOS (polycystic ovarian syndrome) ?E28.2 - Polycystic ovarian syndrome (ICD-10) Laryngospasms ?J38.5 - Laryngeal spasm (ICD-10) 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 - Anaphylactic shock, unspecified, initial encounter (ICD-10) PTSD (post-traumatic stress disorder) ?F43.10 - Post-traumatic stress disorder, unspecified (ICD-10) Migraine ?G43.909 - Migraine, unspecified, not intractable, without status migrainosus (ICD-10) Autoimmune disorder ?D89.89 - Other specified disorders involving the immune mechanism, not elsewhere classified (ICD-10) COVID ?U07.1 - COVID-19 (ICD-10) History of gastric ulcer ?Z87.11 - Personal history of peptic ulcer disease (ICD-10) Lung infection ?J18.9 - Pneumonia, unspecified organism (ICD-10) History of electrocardiography ?Z92.89 - Personal history of other medical treatment (ICD-10) Anxiety and depression ?F41.9 - Anxiety disorder, unspecified (ICD-10) ?F32.A - Depression, unspecified (ICD-10) Arachnoid cyst ?G93.0 - Cerebral cysts (ICD-10) Asthma ?J45.909 - Unspecified asthma, uncomplicated (ICD-10) GERD (gastroesophageal reflux disease) ?K21.9 - Gastro-esophageal reflux disease without esophagitis (ICD-10) Hematuria ?R31.9 - Hematuria, unspecified (ICD-10) Hypothyroidism ?E03.9 - Hypothyroidism, unspecified (ICD-10) Insomnia ?G47.00 - Insomnia, unspecified (ICD-10) Kidney stone ?N20.0 - Calculus of kidney (ICD-10) Metabolic syndrome ?E88.810 - Metabolic syndrome (ICD-10) Myoclonic jerking ?G25.3 - Myoclonus (ICD-10) Obstructive sleep apnea ?G47.33 - Obstructive sleep apnea (adult) (pediatric) (ICD-10) Ovarian cyst ?N83.209 - Unspecified ovarian cyst, unspecified side (ICD-10) Paresthesia ?R20.2 - Paresthesia of skin (ICD-10) Peripheral edema ?R60.0 - Localized edema (ICD-10) Platelet dysfunction ?D69.1 - Qualitative platelet defects (ICD-10) Right inguinal hernia ?K40.90 - Unilateral inguinal hernia, without obstruction or gangrene, not specified as recurrent (ICD-10) Stress incontinence ?N39.3 - Stress incontinence (female) (male) (ICD-10) Thyroid nodule ?E04.1 - Nontoxic single thyroid nodule (ICD-10) Type 2 diabetes mellitus ?E11.9 - Type 2 diabetes mellitus without complications (ICD-10) Chronic urethral stricture Vitamin D deficiency ?E55.9 - Vitamin D deficiency, unspecified (ICD-10) Surgical History (Updated 01/23/23 @ 10:57 by Oliva Martin) History of endometrial ablation ?Z98.890 - Other specified postprocedural states (ICD-10) History of esophagogastroduodenoscopy (EGD) ?Z98.890 - Other specified postprocedural states (ICD-10) History of colonoscopy ?Z98.890 - Other specified postprocedural states (ICD-10) History of section ?Z98.891 - History of uterine scar from previous surgery (ICD-10) History of appendectomy ?Z90.49 - Acquired absence of other specified parts of digestive tract (ICD-10) History of cholecystectomy ?Z90.49 - Acquired absence of other specified parts of digestive tract (ICD-10) History of abdominal hysterectomy ?Z90.710 - Acquired absence of both cervix and uterus (ICD-10) History of cystoscopy ?Z98.890 - Other specified postprocedural states (ICD-10) History of laparoscopy ?Z98.890 - Other specified postprocedural states (ICD-10) History of nasal septoplasty ?Z98.890 - Other specified postprocedural states (ICD-10) History of tubal ligation ?Z98.51 - Tubal ligation status (ICD-10) History of tympanostomy ?Z98.890 - Other specified postprocedural states (ICD-10) Family History (Updated 01/23/23 @ 10:59 by Oliva Martin) Sister Family history of diabetes mellitus Father Heart disease Mother Heart disease Other Family history of cancer Social History (Updated 01/23/23 @ 12:45 by Oliva Martin) Within the past year, how often did you have a drink containing alcohol: never Score interpretation: A score less than 3 is consistent with normal alcohol consumption. Smoking status: Never smoker Non-prescribed substance use: denies use Highest level of school completed/degree received: Associate degree: academic program Exam Narrative Exam Narrative: Vital signs and Nursing Notes reviewed: Blood pressure is elevated at 141/68, she is not hypoxic with pulse ox of 96% on room air General: Flushed, anxious female, speech is somewhat muffled HEENT: Normocephalic atraumatic, mucous membranes are moist and pink, eyes are clear, normal conjunctiva, vision is grossly intact, posterior pharynx is normal in appearance. There is no swelling of the tongue, uvula or pharyngeal soft tissues Neck: Supple, no meningeal signs, no anterior or posterior cervical lymphadenopathy Chest: Lungs are diminished with faint expiratory wheezing, no rhonchi or rales appreciated, no accessory muscle use, speech is somewhat muffled CVS: Regular rate and rhythm S1-S2, no murmurs rubs or gallops, pulses are brisk and equal bilaterally ABD: Soft, nondistended, nontender, no rebound guarding or rigidity, bowel sounds are normal, no pulsatile masses appreciated Extremities: Moving all extremities, no lower extremity tenderness or swelling noted, negative Homans' sign, pulses are brisk and equal bilaterally Skin: Flushed, no petechiae purpura or urticaria noted Neuro: No focal deficits Constitutional Vital Signs, click to edit/add: Last Vital Signs Pulse 68 07/02/23 01:00 Resp 18 07/02/23 01:00 BP 141/68 07/02/23 00:56 Pulse Ox 96 07/02/23 01:00 O2 Del Method Room Air 07/02/23 00:30 Course Vital Signs Vital signs: Vital Signs Pulse Rate 79 07/02/23 00:27 Respiratory Rate 24 H 07/02/23 00:27 Blood Pressure 126/105 H 07/02/23 00:27 Pulse Oximetry 100 07/02/23 00:27 Oxygen Delivery Method Room Air 07/02/23 00:27 Pulse Rate 68 07/02/23 01:00 Respiratory Rate 18 07/02/23 01:00 Blood Pressure 141/68 07/02/23 00:56 Pulse Oximetry 96 07/02/23 01:00 Oxygen Delivery Method Room Air 07/02/23 00:30 MDM - Allergic Reaction MDM Narrative Medical decision making narrative: This 37-year-old female with multiple known allergies 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 The patient allegedly was exposed to some air fresheners. She has had similar allergic reactions in the past when a patient was exposed to several lavender that was in a oil suspension in the patient's room. After being exposed she started having some muffled speech and chest pain. She gave herself her EpiPen and was brought to the emergency department. Upon arrival she was flushed and anxious appearing but there was no stridor, her lungs were clear, abdomen was soft. An IV was placed and she was medicated with IV fluids, Benadryl, Pepcid, 125 mg of IV Solu-Medrol and additional 0.3 mg of subcutaneous epinephrine. She was continually monitored and has clinically improved. She is now speaking in complete sentences and tolerating clear liquids. She will be monitored in emergency department until she is feeling back to normal and then discharged home. I did speak with the nursing machining department supervisor who looked for the air fresheners that the patient was exposed to allegedly and she could not find them or smell them. The patient was reevaluated multiple times and stated that she is feeling better. She is drinking clear liquids, eating light food and her voice is clear, lungs are clear, there is no stridor or skin rash. She feels comfortable being discharged home. She lives at home with her and children. She will be discharged home with a prescription for a Medrol Dosepak and refill for her EpiPen's. The nursing machining department supervisor will share this experience with the machining department supervisor of labor and delivery. I am told they will eradicate any triggers they can find that would cause this patient to have a recurrent allergic reaction. Discharge Plan Discharge Stand Alone Forms: Portal Instructions Chief Complaint: Allergic Reaction Clinical Impression: Allergic reaction Patient Disposition: Home, Self-Care Time of Disposition Decision: 02:55 Condition: Good Prescriptions / Home Meds: No Action zonisamide [Zonegran] 100 mg capsule 200 mg PO DAILY Ubrelvy 50 mg tablet 50 mg PO DAILY PRN (Reason: migraine headache) Tradjenta 5 mg tablet 5 mg PO DAILY tamsulosin 0.4 mg capsule 0.4 mg PO DAILY PRN (Reason: kidney stones) budesonide-formoterol [Symbicort] 160-4.5 mcg/actuation HFA aerosol inhaler 2 puff inhalation BID montelukast [Singulair] 10 mg tablet 10 mg PO DAILY sertraline 200 mg capsule 100 mg PO DAILY pantoprazole 40 mg tablet,delayed release (DR/EC) 40 mg PO DAILY Nurtec ODT 75 mg tablet,disintegrating 75 mg PO DAILY PRN (Reason: migraine headache) magnesium oxide 400 mg magnesium tablet 400 mg PO DAILY lamotrigine 150 mg tablet 150 mg PO DAILY fluticasone propionate [Flonase Allergy Relief] 50 mcg/actuation spray,suspension 1 spray intranasal DAILY PRN (Reason: nasal congestion) Rx Instructions: administer into each nostril epinephrine [EpiPen 2-Elder] 0.3 mg/0.3 mL auto-injector 0.3 mg IM Q10M PRN (Reason: anaphylaxis) Rx Instructions: for 2 doses duloxetine [Cymbalta] 60 mg capsule,delayed release(DR/EC) 60 mg PO DAILY baclofen 10 mg tablet 10 mg PO DAILY Patient Comments: takes 10-20mg at night Ajovy Autoinjector 225 mg/1.5 mL auto-injector 225 mg subcut .monthly cholecalciferol (vitamin D3) 10 mcg (400 unit) capsule 5,000 unit PO DAILY pyridostigmine bromide 180 mg tablet extended release 180 mg PO BID Rx Instructions: administer 6 hours apart levothyroxine [Synthroid] 100 mcg tablet 100 mcg PO DAILY azelastine-fluticasone 137-50 mcg/spray spray,non-aerosol 1 spray intranasal BID Patient Comments: both nostrils Rx Instructions: administer into each nostril vitamin B complex [B Complex-Vitamin B12] Tablet 1 tab PO DAILY Patient Comments: takes 1,000 mcg Flonase Sensimist 27.5 mcg/actuation spray,suspension 2 spray intranasal DAILY Rx Instructions: into each nostril sucralfate 1 gram tablet 1 g PO Q6H 84 Days Qty: 336 3RF Print Language: Bruneian Referrals: Cas Galicia MD [Primary Care Provider] - 1 week
== END 2023-07-02 03:32 | disposition home or self-care (01) ==
PROVIDERS: Emergency Provider Emergency Medicine; PCP Family Medicine
DX: T78.49XA Other allergy, initial encounter (principal)
CPT/HCPCS: 94640; 96372; 96374; 96375; 99284; J2919

== ENCOUNTER 2023-08-21 10:34 | Outpatient (OUT) | payer BC, SELFPAY ==
--- NOTE | 2023-08-21 10:37 | US_ITS ---
[address] [address] Patient Name: LEANA TRAN MRN: [id number] date: 1985 Sex: F Assigned Patient Location: US Current Patient Location: US Accession/Order Number: [id number] Exam Date: 08/21/2023 10:50 Report Date: 08/21/2023 11:25 At the request of: DOLORES BURNHAM Procedure: US renal BI EXAMINATION: US renal BI HISTORY: Kidney Stone N20.0 COMPARISON: 09/02/2022 TECHNIQUE: Ultrasound examination was performed of the bladder. FINDINGS: Right Kidney: Normal in size, contour and echotexture. The cortex measures 1.2 cm. No solid cortical mass, hydronephrosis or obstructing nephrolithiasis Height: 4.33 cm Length: 10.77 cm Width: 4.47 cm Left Kidney: Normal in size, contour and echotexture. The cortex measures 0.9 cm. No solid cortical mass. Mild pelviectasis. 8 mm nonobstructing nephrolith Height: 4.46 cm Length: 12.12 cm Width: 5.44 cm Urinary bladder: 243 mL. Post void imaging not performed. No bladder mass. US/US renal BI IMPRESSION: Mild left pelviectasis and nonobstructing nephrolithiasis Electronically authenticated by: BELÉN ANDRADE Date: 08/21/2023 11:25
== END 2023-08-21 10:35 | disposition home or self-care (01) ==
LOC: US 10:34
PROVIDERS: PCP Family Medicine; Visit Provider Physician Assistant
DX: N20.0 Calculus of kidney (principal)
CPT/HCPCS: 76775

== ENCOUNTER 2023-08-22 14:10 | Outpatient (OUT) | payer BC, SELFPAY ==
[2023-08-22 15:15] LABS: Estimated Average Glucose 114 mg/dL; Glycohemoglobin A1C 5.6 % (4.5-6.2)
[2023-08-22 15:16] LABS: Free T3 2.42 pg/mL (2.18-3.98); Glucose 101 mg/dL (74-106); Thyroid Stimulating Hormone 1.502 uIU/mL (0.358-3.740)
[2023-08-22 15:44] LABS: Free T4 0.84 ng/dL (0.76-1.46)
[2023-08-23 12:10] LABS: Estradiol 62.6 pg/mL (.); Progesterone 3.2 ng/mL (.); Sex Horm Binding Glob, Serum 35.1 nmol/L (24.6-122.0)
[2023-08-23 13:11] LABS: DHEA-Sulfate 27.5 ug/dL (57.3-279.2)
[2023-08-23 14:11] LABS: C-Peptide, Serum 7.7 ng/mL (1.1-4.4); Insulin 56.8 uIU/mL (2.6-24.9)
[2023-08-23 16:10] LABS: Thyroglobulin Antibody 1.4 IU/mL (0.0-0.9); Thyroid Peroxidase (TPO) Ab <9 IU/mL (0-34)
[2023-08-25 13:08] LABS: Free Testosterone(Direct) <0.2 pg/mL (0.0-4.2); Testosterone <3 ng/dL (8-60)
[2023-08-27 18:08] LABS: Reverse T3, Serum 15.4 ng/dL (9.2-24.1)
[2023-08-28 18:09] LABS: Estrone, Serum 49 pg/mL (27-231)
[2023-08-29 14:10] LABS: Serotonin, Serum 11 ng/mL (31-207)
== END 2023-08-22 14:11 | disposition home or self-care (01) ==
LOC: LAB 14:11
PROVIDERS: PCP Family Medicine; Visit Provider Obstetrics & Gynecology
DX: E34.9 Endocrine disorder, unspecified (principal)
CPT/HCPCS: 36415; 82306; 82530; 82627; 82670; 82679; 82728; 82947; 83036; 83525; 84144; 84260; 84270; 84402; 84403; 84432; 84436; 84439; 84443; 84481; 84482; 84681; 86376; 86800

== ENCOUNTER 2023-08-30 08:47 | Outpatient (OUT) | payer BC, SELFPAY ==
--- NOTE | 2023-08-30 | US_ITS ---
The [address] [address] Patient Name: LEANA TRAN MRN: [id number] date: 1985 Sex: F Assigned Patient Location: US Current Patient Location: Accession/Order Number: [id number] Exam Date: 08/30/2023 08:55 Report Date: 08/30/2023 10:22 At the request of: RODOLFO VAZQUEZ Procedure: US pelvis w/ transvaginal EXAMINATION: US pelvis w/ transvaginal HISTORY: Hormone imbalance E34.9 COMPARISON: No relevant comparison available. FINDINGS: Transabdominal and transvaginal images The uterus is surgically absent The right ovary measures 3.4 x 2.6 x 1.7 cm. Normal color and Doppler flow. The left ovary measures 3.6 x 2.1 x 2.2 cm. Normal color and Doppler flow. Normal follicles US/US pelvis w/ transvaginal IMPRESSION: Unremarkable exam Electronically authenticated by: BELÉN ANDRADE Date: 08/30/2023 10:22
== END 2023-08-30 08:48 | disposition home or self-care (01) ==
LOC: US 08:47
PROVIDERS: PCP Family Medicine; Visit Provider Obstetrics & Gynecology
DX: E34.9 Endocrine disorder, unspecified (principal)
CPT/HCPCS: 76830; 76856

== ENCOUNTER 2023-08-31 12:42 | Outpatient (OUT) | payer BC, SELFPAY ==
--- NOTE | 2023-08-31 | MM_ITS ---
Patient Name: LEANA TRAN MR#: [id number] : 1985 Exam Date: 08/31/2023 Ordering Doctor: DR Rubens Tim . RADIOLOGY REPORT PROCEDURE: MM TOMOSYNTHESIS DIAGNOSTIC BI, 08/31/2023, 12:52 US BREAST BI LIMITED, 08/31/2023, 13:08 COMPARISON: US BREAST LARS LIMITED, 10/19/2021. MG MAMM DIAGNOSTIC 3D LARS CAD, 10/19/2021. INDICATIONS: Left breast lump Calculator Name NCI Breast Cancer Risk Assessment Tool 5 Year Breast Cancer Risk 0.50% Lifetime Breast Cancer Risk 9.90% Personal Breast Cancer No Personal Ovarian Cancer No Treatments None Family Cancers Mother with cervical cancer at age ~50. LOCATION: [facility] BREAST COMPOSITION: There are scattered areas of fibroglandular density. FINDINGS: DIAGNOSTIC CATEGORY 2--BENIGN FINDING: RIGHT BREAST: Skin surface marker overlying the lower-inner quadrant with no appreciable mass. No abnormal ultrasound findings within this area. LEFT BREAST: Skin surface markers overlying the upper outer quadrant with there appears to be a benign lymph node. Similar findings seen on today's ultrasound study. Skin surface marker overlying the lower-inner quadrant with no appreciable mammographic or ultrasound findings. RECOMMENDATIONS: ROUTINE MAMMOGRAM AND CLINICAL EVALUATION IN 12 MONTHS. PLEASE NOTE: A NORMAL MAMMOGRAM DOES NOT EXCLUDE THE POSSIBILITY OF BREAST CANCER. A CLINICALLY SUSPICIOUS PALPABLE LUMP SHOULD BE BIOPSIED. Dictated by: Jonas Humphrey M.D. on 08/31/2023 at 13:27 Approved by: Jonas Humphrey M.D. on 08/31/2023 at 13:39
== END 2023-08-31 12:43 | disposition home or self-care (01) ==
LOC: MAMMO 12:42
PROVIDERS: PCP Family Medicine; Visit Provider Obstetrics & Gynecology
DX: N63.25 Unspecified lump in the left breast, overlapping quadrants (principal); Z80.8 Family history of malignant neoplasm of other organs or systems
CPT/HCPCS: 76642; 77066; G0279

== ENCOUNTER 2023-09-22 12:21 | Emergency (ER) | payer OTHER, BC, SELFPAY ==
[2023-09-22] VITALS (16 sets, daily range): BP systolic 131–173; BP diastolic 58–86; PULSE 61–80; TEMP 37.4; O2SAT 96–100; BMI 36.3
--- NOTE | 2023-09-22 12:31 | ED.ALLEREA1 ---
HPI - Allergic Reaction General Chief complaint: Allergic Reaction Stated complaint: SOB Time Seen by Provider: 09/22/23 12:27 Source: patient Mode of arrival: Wheelchair Limitations: no limitations History of Present Illness HPI narrative: pt works in [employer] and was exposed to an unknown chemical - possibly a perfume or other topical substance - possibly cocoa or john butter - from a patient and suddenly developed hives and difficulty breathing. She took an Kathe, used her epipen and then received an albuterol inhaler before coming to the ED for evaluation. She complains of tightness in her chest and throat. Related Data Home Medications ?Medication ?Instructions ?Recorded ?Confirmed azelastine 137 mcg-fluticasone 50 1 spray intranasal BID 01/23/23 01/23/23 mcg/spray nasal spray baclofen 10 mg tablet 10 mg PO DAILY 01/23/23 01/23/23 budesonide-formoterol HFA 160 2 puff inhalation BID 01/23/23 01/23/23 mcg-4.5 mcg/actuation aerosol inhaler (Symbicort) cholecalciferol (vitamin D3) 10 5,000 unit PO DAILY 01/23/23 01/23/23 mcg (400 unit) capsule duloxetine 60 mg capsule,delayed 60 mg PO DAILY 01/23/23 01/23/23 release (Cymbalta) epinephrine 0.3 mg/0.3 mL 0.3 mg IM Q10M PRN anaphylaxis 01/23/23 01/23/23 injection, auto-injector (EpiPen 2-Elder) fluticasone furoate 27.5 2 spray intranasal DAILY 01/23/23 01/23/23 mcg/actuation nasal spray,suspension (Flonase Sensimist) fluticasone propionate 50 1 spray intranasal DAILY PRN nasal 01/23/23 01/23/23 mcg/actuation nasal congestion spray,suspension (Flonase Allergy Relief) fremanezumab-vfrm 225 mg/1.5 mL 225 mg subcut .monthly 01/23/23 01/31/23 subcutaneous auto-injector (Ajovy) lamotrigine 150 mg tablet 150 mg PO DAILY 01/23/23 01/23/23 levothyroxine 100 mcg tablet 100 mcg PO DAILY 01/23/23 01/31/23 (Synthroid) linagliptin 5 mg tablet (Tradjenta) 5 mg PO DAILY 01/23/23 01/31/23 magnesium oxide 400 mg PO DAILY 01/23/23 01/23/23 montelukast 10 mg tablet 10 mg PO DAILY 01/23/23 01/23/23 (Singulair) pantoprazole 40 mg tablet,delayed 40 mg PO DAILY 01/23/23 01/23/23 release pyridostigmine bromide 180 mg 180 mg PO BID 01/23/23 01/23/23 tablet,extended release rimegepant 75 mg disintegrating 75 mg PO DAILY PRN migraine 01/23/23 01/23/23 tablet (Nurtec ODT) headache sertraline 200 mg capsule 100 mg PO DAILY 01/23/23 01/23/23 tamsulosin 0.4 mg capsule 0.4 mg PO DAILY PRN kidney stones 01/23/23 01/23/23 ubrogepant 50 mg tablet (Ubrelvy) 50 mg PO DAILY PRN migraine 01/23/23 01/23/23 headache vitamin B complex (B 1 tab PO DAILY 01/23/23 01/23/23 Complex-Vitamin B12 tablet) zonisamide 100 mg capsule 200 mg PO DAILY 01/23/23 01/23/23 (Zonegran) Previous Rx's ?Medication ?Instructions ?Recorded sucralfate 1 gram tablet 1 g PO Q6H 12 weeks #336 tabs 01/31/23 epinephrine 0.3 mg/0.3 mL 0.3 mg (0.3 mL) IM ONCE PRN 07/02/23 injection, auto-injector (EpiPen anaphylaxis #2 ea 2-Elder) prednisone 20 mg tablet 40 mg (2 x 20 mg) PO DAILY #6 tabs 07/02/23 epinephrine 0.3 mg/0.3 mL 0.3 mg (0.3 mL) IM Q10M PRN 09/22/23 injection, auto-injector (Auvi-Q) anaphylaxis #2 ea Allergies Allergy/AdvReac Type Severity Reaction Status Date / Time aspirin Allergy Hives Verified 09/22/23 12:23 cefaclor [From Ceclor] Allergy SOB Verified 09/22/23 12:23 clindamycin Allergy Rash Verified 09/22/23 12:23 ibuprofen [From Motrin] Allergy SOB Verified 09/22/23 12:23 iodine Allergy Unknown Verified 09/22/23 12:23 Latex, Natural Rubber Allergy Rash Verified 09/22/23 12:23 Macrolide Antibiotics Allergy Unknown Verified 09/22/23 12:23 penicillin G Allergy SOB Verified 09/22/23 12:23 povidone-iodine Allergy Rash Verified 09/22/23 12:23 [From Betadine] Sulfa (Sulfonamide Allergy Difficulty Verified 09/22/23 12:23 Antibiotics) Breathing valacyclovir [From Valtrex] Allergy Anaphylaxis Verified 09/22/23 12:23 scents/oils Allergy Severe Anaphylaxis Uncoded 09/22/23 12:23 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 - Anaphylactic shock, unspecified, initial encounter (ICD-10) PTSD (post-traumatic stress disorder) ?F43.10 - Post-traumatic stress disorder, unspecified (ICD-10) Migraine ?G43.909 - Migraine, unspecified, not intractable, without status migrainosus (ICD-10) Autoimmune disorder ?D89.89 - Other specified disorders involving the immune mechanism, not elsewhere classified (ICD-10) COVID ?U07.1 - COVID-19 (ICD-10) History of gastric ulcer ?Z87.11 - Personal history of peptic ulcer disease (ICD-10) Lung infection ?J18.9 - Pneumonia, unspecified organism (ICD-10) History of electrocardiography ?Z92.89 - Personal history of other medical treatment (ICD-10) Anxiety and depression ?F41.9 - Anxiety disorder, unspecified (ICD-10) ?F32.A - Depression, unspecified (ICD-10) Arachnoid cyst ?G93.0 - Cerebral cysts (ICD-10) Asthma ?J45.909 - Unspecified asthma, uncomplicated (ICD-10) GERD (gastroesophageal reflux disease) ?K21.9 - Gastro-esophageal reflux disease without esophagitis (ICD-10) Hematuria ?R31.9 - Hematuria, unspecified (ICD-10) Hypothyroidism ?E03.9 - Hypothyroidism, unspecified (ICD-10) Insomnia ?G47.00 - Insomnia, unspecified (ICD-10) Kidney stone ?N20.0 - Calculus of kidney (ICD-10) Metabolic syndrome ?E88.810 - Metabolic syndrome (ICD-10) Myoclonic jerking ?G25.3 - Myoclonus (ICD-10) Obstructive sleep apnea ?G47.33 - Obstructive sleep apnea (adult) (pediatric) (ICD-10) Ovarian cyst ?N83.209 - Unspecified ovarian cyst, unspecified side (ICD-10) Paresthesia ?R20.2 - Paresthesia of skin (ICD-10) Peripheral edema ?R60.0 - Localized edema (ICD-10) Platelet dysfunction ?D69.1 - Qualitative platelet defects (ICD-10) Right inguinal hernia ?K40.90 - Unilateral inguinal hernia, without obstruction or gangrene, not specified as recurrent (ICD-10) Stress incontinence ?N39.3 - Stress incontinence (female) (male) (ICD-10) Thyroid nodule ?E04.1 - Nontoxic single thyroid nodule (ICD-10) Type 2 diabetes mellitus ?E11.9 - Type 2 diabetes mellitus without complications (ICD-10) Chronic urethral stricture Vitamin D deficiency ?E55.9 - Vitamin D deficiency, unspecified (ICD-10) Surgical History (Updated 01/23/23 @ 10:57 by Oliva Martin) History of endometrial ablation ?Z98.890 - Other specified postprocedural states (ICD-10) History of esophagogastroduodenoscopy (EGD) ?Z98.890 - Other specified postprocedural states (ICD-10) History of colonoscopy ?Z98.890 - Other specified postprocedural states (ICD-10) History of section ?Z98.891 - History of uterine scar from previous surgery (ICD-10) History of appendectomy ?Z90.49 - Acquired absence of other specified parts of digestive tract (ICD-10) History of cholecystectomy ?Z90.49 - Acquired absence of other specified parts of digestive tract (ICD-10) History of abdominal hysterectomy ?Z90.710 - Acquired absence of both cervix and uterus (ICD-10) History of cystoscopy ?Z98.890 - Other specified postprocedural states (ICD-10) History of laparoscopy ?Z98.890 - Other specified postprocedural states (ICD-10) History of nasal septoplasty ?Z98.890 - Other specified postprocedural states (ICD-10) History of tubal ligation ?Z98.51 - Tubal ligation status (ICD-10) History of tympanostomy ?Z98.890 - Other specified postprocedural states (ICD-10) Family History (Updated 01/23/23 @ 10:59 by Oliva Martin) Sister Family history of diabetes mellitus Father Heart disease Mother Heart disease Other Family history of cancer Social History (Updated 01/23/23 @ 12:45 by Oliva Martin) Within the past year, how often did you have a drink containing alcohol: never Score interpretation: A score less than 3 is consistent with normal alcohol consumption. Smoking status: Never smoker Non-prescribed substance use: denies use Highest level of school completed/degree received: Associate degree: academic program Exam Narrative Exam Narrative: Nurses notes and vital signs reviewed and patient is not hypoxic. afebrile General: Well-appearing and in no apparent distress. Skin: Warm, dry, no pallor noted. Very faint urticarial rash. Head: Normocephalic, atraumatic. Neck: Supple, non-tender. No swelling Eye: Pupils are equal, round and EOMI. No scleral icterus. Ears, Nose, Mouth, and Throat: No posterior oropharynx erythema, Swelling or hypertrophy. uvula is mid-line. Oral mucosa is moist Cardiovascular: Regular Rate and Rhythm without murmur, gallop or rub. Respiratory: No accessory muscle use or respiratory distress. Equal air exchange bilaterally. Lungs are clear to auscultation, no wheezing, rales or rhonchi Musculoskeletal: normal ROM, no calf or popliteal tenderness, no lower extremity edema/swelling Neurological: A&O x4. No cranial nerve dysfunction observed. No truncal ataxia. Moves all extremities. Sensation intact. Psychiatric: Cooperative and interactive. Normal mood and affect. Constitutional Vital Signs, click to edit/add: Last Vital Signs Temp 99.3 F 09/22/23 12:24 Pulse 66 09/22/23 12:24 Resp 20 09/22/23 12:24 BP 140/66 09/22/23 12:24 Pulse Ox 100 08/17/24 12:24 O2 Del Method Room Air 09/22/23 12:24 Course Vital Signs Vital signs: Vital Signs Temperature 99.3 F 09/22/23 12:24 Pulse Rate 66 09/22/23 12:24 Respiratory Rate 20 09/22/23 12:24 Blood Pressure 140/66 09/22/23 12:24 Pulse Oximetry 100 09/22/23 12:24 Oxygen Delivery Method Room Air 09/22/23 12:24 Temperature 99.3 F 09/22/23 12:24 Pulse Rate 66 09/22/23 12:24 Respiratory Rate 20 09/22/23 12:24 Blood Pressure 140/66 09/22/23 12:24 Pulse Oximetry 100 09/22/23 12:24 Oxygen Delivery Method Room Air 09/22/23 12:24 MDM - Allergic Reaction MDM Narrative Medical decision making narrative: Patient was placed on playground monitor with continuous pulse ox. Oxygen was also applied at 2 L per nasal cannula. Peripheral IV was established and the patient was ordered to receive IV Pepcid, IV Solu-Medrol and an additional dose of IM epinephrine. Due to her history of asthma, I also ordered another albuterol neb treatment. On recheck after treatment, her voice hoarseness had resolved and her shortness of breath, chest and throat tightness had all ceased. She felt pretty much back to normal . She was discharged home with prescription for additional epipen. We discussed ED return f she worsens. Discharge Plan Discharge Stand Alone Forms: Portal Instructions Chief Complaint: Allergic Reaction Clinical Impression: Allergic reaction Patient Disposition: Home, Self-Care Time of Disposition Decision: 13:14 Prescriptions / Home Meds: New epinephrine [Auvi-Q] 0.3 mg/0.3 mL auto-injector 0.3 mg IM Q10M PRN (Reason: anaphylaxis) Qty: 2 0RF Rx Instructions: for 2 doses No Action prednisone 20 mg tablet 40 mg PO DAILY Qty: 6 0RF epinephrine [EpiPen 2-Eldre] 0.3 mg/0.3 mL auto-injector 0.3 mg IM ONCE PRN (Reason: anaphylaxis) Qty: 2 0RF Rx Instructions: for 2 doses zonisamide [Zonegran] 100 mg capsule 200 mg PO DAILY Ubrelvy 50 mg tablet 50 mg PO DAILY PRN (Reason: migraine headache) Tradjenta 5 mg tablet 5 mg PO DAILY tamsulosin 0.4 mg capsule 0.4 mg PO DAILY PRN (Reason: kidney stones) budesonide-formoterol [Symbicort] 160-4.5 mcg/actuation HFA aerosol inhaler 2 puff inhalation BID montelukast [Singulair] 10 mg tablet 10 mg PO DAILY sertraline 200 mg capsule 100 mg PO DAILY pantoprazole 40 mg tablet,delayed release (DR/EC) 40 mg PO DAILY Nurtec ODT 75 mg tablet,disintegrating 75 mg PO DAILY PRN (Reason: migraine headache) magnesium oxide 400 mg magnesium tablet 400 mg PO DAILY lamotrigine 150 mg tablet 150 mg PO DAILY fluticasone propionate [Flonase Allergy Relief] 50 mcg/actuation spray,suspension 1 spray intranasal DAILY PRN (Reason: nasal congestion) Rx Instructions: administer into each nostril epinephrine [EpiPen 2-Elder] 0.3 mg/0.3 mL auto-injector 0.3 mg IM Q10M PRN (Reason: anaphylaxis) Rx Instructions: for 2 doses duloxetine [Cymbalta] 60 mg capsule,delayed release(DR/EC) 60 mg PO DAILY baclofen 10 mg tablet 10 mg PO DAILY Patient Comments: takes 10-20mg at night Ajovy Autoinjector 225 mg/1.5 mL auto-injector 225 mg subcut .monthly cholecalciferol (vitamin D3) 10 mcg (400 unit) capsule 5,000 unit PO DAILY pyridostigmine bromide 180 mg tablet extended release 180 mg PO BID Rx Instructions: administer 6 hours apart levothyroxine [Synthroid] 100 mcg tablet 100 mcg PO DAILY azelastine-fluticasone 137-50 mcg/spray spray,non-aerosol 1 spray intranasal BID Patient Comments: both nostrils Rx Instructions: administer into each nostril vitamin B complex [B Complex-Vitamin B12] Tablet 1 tab PO DAILY Patient Comments: takes 1,000 mcg Flonase Sensimist 27.5 mcg/actuation spray,suspension 2 spray intranasal DAILY Rx Instructions: into each nostril sucralfate 1 gram tablet 1 g PO Q6H 84 Days Qty: 336 3RF Print Language: [place] Islander Instructions: General Allergic Reaction (ED) Referrals: Cas Galicia MD [Primary Care Provider] - 1 week
--- OUTSIDE RECORDS SUMMARY | 2023-09-22 12:33 | XMS_ITS | CCD ---
Author Organization [facility] Informat ion Partnership [facility] Care Team Providers Care Varnish Inspector Name Role Phone Cas Dowell MD Primary Care Provider CAS DOWELL Primary Care Unavailbenito e CANDIDO DAVID Referring Unavailable CAS DOWELL Primary Care Unavailabl e NABOR YANCEY Referring Unavailable Grayson PEREZ, Cas Wan Primary Care Provider Cas Dowell MD Primary Care Provider Cas Dowell Primary Care Provider Ana PEREZ, Sai Unavailable Rubens Tim Unavailable Rubens Tim DO Unavailable Cas Dowell MD Primary Care Provider Cas Dowell Primary Care Provider [phone] Ana PEREZ, Sai Unavailable Rubens Tim DO Unavailable Cas Dowell Primary Care Provider Rubens Tim DO Unavailable Cas Dowell Primary Care Provider CAS DOWELL Primary Care Physician [phone] CAS DOWELL Primary Care UnavailCas Cantor Primary Care Provider Ana PEREZ, Sai Unavailable Rubens Tim DO Unavailable Cas Dowell MD Primary Care Provider Rubens Tim DO Unavailable FUENTES AMARAL Referring Unavailable NADERER, CAS Guzman Primary Care Unavailable ANA, SAI Referring Unavailable NADERER, CAS Guzman Primary Care Unavailable GUETTAO, PETER Referring Unavailable NADERER, CAS Guzman Primary Care Unavailable ABHYPAT, FUENTES Referring Unavailable NADERER, CAS Guzman Primary [...] Unavailable NADERER, DR CAS Guzman Admitting Unavailable [place], DR BELÉN Hatfield Consulting Unavailable NADERER, DR [...] Consulting Unavailable DAMION, JIMMY Starkey Consulting Unavailable Anabecki PEREZ, Sai Unavailable NADERER, CAS A Primary Care Unavailable ABHYANKAR, FUENTES Attending Unavailable NADERER, CAS A Primary Care Unavailable ABHYANKAR, FUENTES Attending Unavailable ABHYANKAR, FUENTES Referring Unavailable NADERER, CAS A Primary Care Unavailable ABHYANKAR, FUENTES Attending Unavailable NADERER, CAS A Primary Care Unavailable HARSH, RUTH Referring Unavailable HARSH, RUTH Attending Unavailable NADERER, CAS A Primary Care Unavailable AIDENSECINDY Attending Unavailable NADERER, CAS A Primary Care [...] Unavailable NADERER, CAS A Primary Care Unavailable HASNIE, AFIAJanet Attending Unavailable GREBHARGAVI SALCEDO Attending Unavailable NADERER, CAS A Primary Care Unavailable NADERER, CAS A Primary Care Unavailable DEVNANI, MEENA Referring Unavailable BHARGAVI SALDANA Attending Unavailable NADERER, CAS A Primary Care Unavailable GRENFAGATA HERNANDEZYN Referring Unavailable DEVNANI, MEENA Attending Unavailable NADERER, CAS A Primary Care Unavailable ANAMICHEAL CHANCE Attending Unavailable NADERER, CAS A Primary Care Unavailable NADERER, CAS A Primary Care Unavailable ABHYANKAR, FUENTES Attending Unavailable BHARGAVI SALDANA Attending Unavailable NADERER, CAS A Primary Care Unavailable NADERER, CAS A Primary Care Unavailable NADERER, CAS A Primary Care Unavailable MEENA GRISSOM Attending Unavailable NADERER, CAS A Primary Care Unavailable ABHYANKAR, FUENTES Attending Unavailable ABHYANKAR, FUENTES Referring Unavailable NADERER, CAS A Primary Care Unavailable ABHYANKAR, FUENTES Referring Unavailable ABHYANKAR, FUENTES Attending Unavailable NADERER, CAS A Primary Care Unavailable CHAYO MARTINS Admitting Unavailable CHAYO MARTINS Attending Unavailable NADERER, CAS ALEX Primary Care Unavailabl e FRANTZ, LIV Consulting Unavailable NADERER, CAS ALEX Primary Care Unavailabl e SEAN MOSES Attending Unavailable NADERER, CAS ALEX Primary Care Unavailabl e NADERER, CAS ALEX Primary Care Unavailabl e NADERER, [facility] Primary Care Unavailabl e YAO, AKILA Referring Unavailable NADERER, CAS [place] Primary Care Unavailabl e YAO, AKILA Referring Unavailable Naderer , Cas Primary Care Provider Grayson PEREZ, Cas Primary Care Provider [phone] William PEREZ, Phillip Guerra Attending Unavailable Grayson PEREZ, Cas [place] Primary Care Unavail able William PEREZ, Phillip Guerra Attending Unavailable Grayson PEREZ, [facility] Primary Care Unavail able William PEREZ, Phillip Guerra Attending Unavailable Grayson PEREZ, Cas [place] Primary Care Unavail able William PEREZ, Phillip Guerra Attending Unavailable Grayson PEREZ, [facility] Primary Care Unavail able William PEREZ, Phillip Guerra Attending Unavailable Grayson PEREZ, [facility] Primary Care Unavail able SARAH BEST Attending Unavailable GRAYSON, CAS Referring Unavailable NADERESilvia, CAS Primary Care Unavailable NADERESilvia, CAS Attending Unavailable JODI MAZARIEGOS Attending Unavailable COREYERER, CAS Attending Unavailable RUBENS TIM Attending Unavailable ABEL, STEPHON Referring Unavailable ABEL, STEPHON Referring Unavailable ABEL, STEPHON Referring Unavailable ABEL, STEPHON Referring Unavailable BAEL, STEPHON Referring Unavailable ABEL, STEPHON Referring Unavailable MACRINA WADSWORTH Attending Unavailable ANGELIKA CORONEL Attending Unavailable MACRINA WADSWORTH Attending Unavailable ABEL, STEPHON Referring Unavailable ABIEL MATTHEW Referring Unavailable Tesfaye MASON Attending Unavailable Selma Choe Attending Unavailable Tesfaye MASON Attending Unavailable CAS DOWELL Referring Unavailable Tesfaye MASON Attending Unavailable Allergies Allergy Classification Reported Allergen(s) Allergy Type Date of Onset Reaction(s) Facility Aluminum aspirin (1 source) Aluminum aspirin Drug Allergy 09-04-19 12 [facility] [employer] Cephalosporins (antibiotic) (2 sources) Cefaclor Drug Allergy 09-04-19 12 Shortness Of Breath, [facility] [employer] Phone: drospirenone / Ethinyl Estradiol (1 source) drospirenone / Ethinyl Estradiol Drug Allergy 09-04-19 12 [employer] Phone: Ethinyl Estradiol / Norethindrone (1 source) Ethinyl Estradiol / Norethindrone Drug Allergy 09-04-19 12 [employer] Phone: Latex (1 source) Latex Substance Allergy 09-04-19 12 Swelling, [facility] [employer] Phone: Macrolides (antibiotic) (1 source) Erythromycin Drug Allergy 09-04-19 12 Shortness Of Breath [employer] Phone: NSAIDs (1 source) Ibuprofen Drug Allergy 09-04-19 12 [employer] Phone: Penicillins (antibiotic) (1 source) Penicillins Drug Allergy 09-04-19 12 [facility] [employer] Phone: rofecoxib (1 source) rofecoxib Drug Allergy 09-04-19 12 [employer] Phone: Sulfonamides (antibiotic) (1 source) Sulfonamides (Antibiotic) Drug Allergy 03-21-19 16 [facility] [employer] Unclassified (8 sources) Clindamycin/Lincomy juan Propensity to adverse reactions to drug 09-04-19 12 [facility] [employer] Phone: Unclassified (20 sources) Iodides; Translations: [IODIDES] Propensity to adverse reactions to drug 09-04-19 12 Unknown, Anaphylaxis [employer] Phone: Unclassified (9 sources) Lavender Oil Propensity to adverse reactions to drug 06-14-19 21 Anaphylaxis [employer] (13 sources) Aluminum aspirin; Translations: [ASPIRIN] Drug Allergy 09-04-19 12 Rash, Angioedema, Unknown [employer] (20 sources) Cefaclor; Translations: [cefaclor] Drug Allergy 09-04-19 12 Shortness Of Breath, Anaphylaxis, Swelling, Unknown (qualifier value) [employer] Phone: (20 sources) Cefuroxime; Translations: [CEFUROXIME AXETIL] Drug Allergy 09-04-19 12 Rash, Unknown, Shortness of Breath [employer] Phone: (20 sources) drospirenone / Ethinyl Estradiol; Translations: [DROSPIRENONE-ETHIN YL ESTRADIOL] Drug Allergy 09-04-19 12 Unknown, Other: See Comments [employer] Phone: (20 sources) Erythromycin; Translations: [ERYTHROMYCIN] Drug Allergy 09-04-19 12 Shortness Of Breath, Swelling, Unknown [employer] Phone: (9 sources) Ethinyl Estradiol / Norethindrone Drug Allergy 09-04-19 12 [employer] Phone: (14 sources) Ibuprofen; Translations: [ibuprofen] Drug Allergy 09-04-19 12 Unknown (qualifier value), Rash, Unknown [employer] (20 sources) Latex; Translations: [LATEX] Propensity to adverse reactions to drug 09-04-19 12 Swelling, Rash, Itching, Unknown, Eruption of skin (disorder) [employer] Phone: (10 sources) Penicillins; Translations: [PENICILLINS] Propensity to adverse reactions to drug 09-04-19 12 Rash [employer] Phone: (20 sources) rofecoxib Drug Allergy 09-04-19 12 Unknown, Rash [employer] Phone: (6 sources) Sulfonamides (Antibiotic) Propensity to adverse reactions to drug 03-21-19 16 [facility] (20 sources) Aspirin; Translations: [aspirin] Drug Allergy 09-04-19 12 Unknown, Angioedema, Unknown (qualifier value), Rash (20 sources) Clindamycin; Translations: [clindamycin] Drug Allergy 02-23-19 15 Swelling, Shortness of Breath, Rash, Unknown (qualifier value) (20 sources) Contrast media; Translations: [CONTRAST DYE] Drug Allergy 09-04-19 12 Anaphylaxis (20 sources) Naproxen; Translations: [NAPROXEN] Drug Allergy 09-07-19 21 Swelling, Angioedema (19 sources) Penicillins Propensity to adverse reactions to drug 02-23-19 15 Rash, Itching (20 sources) Sulfonamides (Antibiotic); Translations: [SULFA (SULFONAMIDE ANTIBIOTICS)] Drug Allergy 03-21-19 16 Swelling, Shortness of Breath (20 sources) Lavender (Lavandula Angustifolia); Translations: [LAVENDER (LAVANDULA ANGUSTIFOLIA)] Drug Allergy 06-14-19 21 Anaphylaxis (4 sources) Eucalyptus oil Drug Allergy 10-24-19 21 [facility] (20 sources) gatifloxacin; Translations: [GATIFLOXACIN] Drug Allergy 12-22-19 15 Diarrhea [facility] Work Phone: (18 sources) Norethindrone-Ethin Estradiol; Translations: [NORETHINDRONE-ETHI N ESTRADIOL] Propensity to adverse reactions to drug 06-09-19 22 Unknown (20 sources) Eucalyptus extract; Translations: [EUCALYPTUS] Drug Allergy 10-24-19 21 Anaphylaxis (20 sources) levoFLOXacin; Translations: [LEVOFLOXACIN] Drug Allergy 11-12-19 21 Rash (20 sources) metroNIDAZOLE; Translations: [METRONIDAZOLE] Drug Allergy 03-02-19 22 Unknown (20 sources) Sulfamethoxazole / Trimethoprim; Translations: [SULFAMETHOXAZOLE-T RIMETHOPRIM] Drug Allergy 01-24-20 14 Unknown, Other (See Comments) (20 sources) Fish; Translations: [FISH CONTAINING PRODUCTS] Drug Allergy 07-26-19 22 [facility] Work Phone: (20 sources) Shellfish; Translations: [SHELLFISH DERIVED] Drug Allergy 07-26-19 22 [facility] Work Phone: (20 sources) Penicillins Propensity to adverse reactions to drug 09-04-19 12 Rash, Itching (20 sources) Penicillin G; Translations: [PENICILLIN G BENZATHINE] Drug Allergy 08-19-19 22 Unknown Work Phone: (6 sources) Iodine; Translations: [iodine] Drug Allergy 05-25-19 23 Unknown (qualifier value) [facility] (6 sources) Macrolides (Antibiotic); Translations: [macrolide antibiotics] Drug allergy 09-04-19 12 Allergy - specialty (qualifier value) [facility] (6 sources) Penicillin; Translations: [penicillin] Drug Allergy Unknown (qualifier value) [facility] (6 sources) Sulfonamides (Antibiotic); Translations: [sulfa drugs] Drug allergy Allergy - specialty (qualifier value) [facility] (11 sources) valACYclovir; Translations: [valacyclovir] Drug Allergy 10-06-19 22 Anaphylaxis (disorder), Shortness Of Breath, Anaphylaxis [facility] (9 sources) Povidone-Iodine; Translations: [povidone iodine topical] Drug Allergy 05-25-19 23 Eruption of skin (disorder), Rash [facility] (2 sources) Seafood Propensity to adverse reactions to drug 01-09-20 22 Hives, Rash [facility] Work Phone: (5 sources) rofecoxib; Translations: [ROFECOXIB] Drug Allergy 09-04-19 12 Rash, Unknown [facility] Repository (4 sources) IODINATED CONTRAST MEDIA; Translations: [IODINATED CONTRAST MEDIA] Propensity to adverse reactions to drug (disorder) 02-23-19 15 [facility] Repository (1 source) Aspirin Drug Allergy 03-12-19 15 [facility] Repository (3 sources) Cefaclor; Translations: [Ceclor] Drug Allergy 03-12-19 15 [facility] Rep[facility] (2 sources) Cefuroxime; Translations: [Ceftin] Drug Allergy 03-12-19 15 [facility] Rep[facility] (1 source) Clindamycin Drug Allergy 03-12-19 15 [facility] (1 source) Erythromycin Drug Allergy 03-12-19 15 [facility] (1 source) Eucalyptus extract Drug Allergy 10-24-19 21 [facility] Rep[facility] (1 source) gatifloxacin Drug Allergy 12-22-19 15 [facility] (2 sources) Ibuprofen; Translations: [Motrin] Drug Allergy [facility] (1 source) Iodine (And Iodine Containting Drugs) Drug allergy (disorder) 03-12-19 15 [facility] (1 source) Latex Drug allergy (disorder) 03-12-19 15 [facility] (1 source) levoFLOXacin Drug Allergy 11-12-19 21 [facility] (1 source) Naproxen Drug Allergy 08-07-19 21 [facility] (1 source) Penicillins Drug allergy (disorder) 03-12-19 15 [facility] (1 source) rofecoxib Drug Allergy 03-12-19 15 [facility] (1 source) Sulfamethoxazole / Trimethoprim Drug Allergy 02-23-19 21 [facility] (1 source) Sulfonamides (Antibiotic) Drug allergy (disorder) 03-12-19 15 [facility] (1 source) valACYclovir Drug Allergy [facility] (5 sources) buPROPion; Translations: [BUPROPION] Drug Allergy 06-22-19 23 Other (See Comments) [facility] (5 sources) Latex; Translations: [LATEX, NATURAL RUBBER] Propensity to adverse reactions to drug 09-04-19 12 Swelling, Itching, Rash, Unknown [facility] (5 sources) Menthol; Translations: [MENTHOL] Drug Allergy 02-27-19 23 Hives [facility] (3 sources) Sulfamethoxazole; Translations: [SULFAMETHOXAZOLE] Drug Allergy 08-19-19 22 [facility] (5 sources) zolpidem; Translations: [ZOLPIDEM] Drug Allergy 05-25-19 Other (See Comments), Unknown [facility] (4 sources) Gloves, Latex With Aloe Vera; Translations: [GLOVES, LATEX WITH ALOE VERA] Propensity to adverse reactions to drug 08-19-19 22 [facility] (1 source) Cefuroxime Drug Allergy 07-08-19 [facility] (2 sources) dimethicone; Translations: [DIMETHICONE] Drug Allergy 07-08-19 [facility] (1 source) Fish - dietary Allergy to substance 07-26-19 22 Hives [facility] (1 source) Gatifloxacin Allergy to substance 12-22-19 15 Diarrhea [facility] (1 source) Penicillins Drug Intolerance 09-04-19 12 Itching, Rash [facility] (1 source) Galcanezumab-Gnlm Propensity to adverse reactions 07-08-19 [facility] (1 source) Norethindrone-Eth Estradiol Drug Intolerance 09-04-19 [facility] (1 source) CT dye and contrast; Translations: [CT dye and contrast] Propensity to adverse reactions (disorder) [facility] Repository (2 sources) Ibuprofen; Translations: [IBUPROFEN] Drug Allergy 09-04-19 12 [facility] Repository (2 sources) NORETHINDRONE AC-ETH ESTRADIOL; Translations: [NORETHINDRONE AC-ETH ESTRADIOL] Propensity to adverse reactions to drug (disorder) 09-04-19 [facility] Rep[facility] Medications Current Medications Medication Drug Class(es) [...] Comment on above: Take 2 tablets by [facility] every 6 hours as needed (once prior to dentist and then after for 3-4 doses.) for up to 5 days. Take 2 tablets by [facility] every 6 hours as needed (once prior [...] every four hours as needed for headache mcqjghrncm-fykulaklyefcz-gqhrittv (FIORICET) 50-325-40 MG per tablet Take 1 [...] pain 6 tablet 0 05/20/2021 05/22/2021 Active [id number] 200 actuat albuterol 0.09 mg/actuat metered dose [...] by nebulization 2 times daily 60 each 11 2021 Active Start: 10-31-2021 End: 04-29-2022 take [...] tablet (2 sources) Quinolone Antimicrobial Start: 12-22-19 take 1 tablet by mouth once daily Cipro 250 mg Tab See Instructions, 1 tab po day prior to procedure. 1 tab po following procedure., # 2 tab(s), Refills(s) 0, Pharmacy: [facility]/pharmacy #[id number], 162, cm, 12/21/21 8:50:00 EST, Height/Length Dosing, 99, kg, 12/21/21 8:50:00 EST, Weight Dosing Start Date: 12/21/21 Status: Ordered 12 hr dextromethorphan hydrobromide 30 mg / guaiFENesin 600 mg extended release oral tablet (1 source) Uncompetitive H-rcrzxi-C-aspartate Receptor Antagonist, Sigma-1 Agonist take 30-600 mg [...] (FLONASE) 50 mcg/actuation nasal spray Use 1 [place] in each nostril twice daily. 3 Each [...] 0 Active Comment on above: Use 1 [place] in each nostril twice daily. 1 spray [...] hyperglycemia, without long-term current use of insulin ([facility]) Take 1 [...] Start: 08-24-2021 take 2 tablets by mo ut in the morning, then take 2 tablets [...] stone, # 30 tab(s), Refills(s) 1, Pharmacy: [facility]/pharmacy #[id number], 162, cm, 09/05/22 8:28:00 EDT, Height/Length [...] sublingual tablet (3 sources) Vitamin B12 Start: 3 take 1 tablet under the tongue in [...] Status: Ordered take 2 capsules by [facility] once daily zonisamide (ZONEGRAN) 25 MG capsule Take 50 mg by mouth daily 0 Active Comment on above: Take 1 capsule by mo [facility] once daily. Completed/Discontinued Medications Medication Drug [...] needed. 0 Active take 2 tablets by mo [facility] every six hours as needed diphenhydrAMINE [...] Comment on above: TAKE 1 CAPSULE BY [facility] TWICE A DAY FOR [...] mg/mL injection 0.3 mg 168 hr estradiol 0.64593 mg/hr transdermal system (4 sources) Estrogen Start: [...] THE SKIN ONCE PER WEEK estrogens, conjugated (fpc) 0.625 mg oral tablet (3 sources) Estrogen [...] of kidney] Onset: 3 Episodic Cardiac dysrhythmias (20 sources) Bradycardia; Translations: [Bradycardia, unspecified] Onset: 1 05-24-2021 Episodic Chronic obstructive pulmonary disease and bronchiectasis (1 [...] 12-16-2021 Chronic Other aftercare (1 source) 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; Translations: [OTH [facility] CURRENT DRUG THERAPY] Onset: 3 Episodic Other [...] Onset: 3 12-16-2021 Chronic Other gastrointestinal disorders (1 source) Irritable [...] Diplopia; Translations: [Diplopia] Onset: 05-24-2021 05-24-2021 Episodic Coagulation and hemorrhagic disorders (17 [...] hypotension] Onset: 08-23-2021 Episodic Other circulatory disease (1 source) Other disorder of circulatory system; Translations: [Blood [...] NEOPLSM OTH GENIT ORGN] Onset: 10-23-2021 Episodic Residual codes; [...] unspecified; Translations: [Post covid-19 condition, unspecified] Onset: 11-14-2022 Viral infection (7 sources) Disease caused by [...] HEREDIA, LORAINE Razo Where: [facility] General Surgery Office/Clini c Noteon 02-13-2023 [...] BID, # 60 tab(s), Refills(s) 3, Pharmacy: [facility]/pharmacy #[id number], 162, cm, 01/04/23 9:06:00 EST, Height/Length Dosing, 100.5, kg, 01/04/23 9:06:00 EST, Weight Dosing E&M of Est. Patient Low 20-29 Min 70908 3. BMI 38.0-38.9,adult (Z68.38: Body mass index [BMI] 38.0-38.9, adult) recommend diet and exercise. Ordered: E&M of Est. Patient Low 20-29 Min 05198 Follow-up No qualifying data available Problem List/Past [...] Sister. Heart disease: (more content not included)... [facility] Comment on above: Result Comment: Elec tronically Signed By: MARLON PEREZ, Tesfaye Richard\Date and Time Signed: 02/13/23 09:58 EST Operative Reporton Operative Report [id number]#1.00TIFF [facility] Lab Reportson 01-31-2023 Lab Reports [id number]#1.00TIFF [facility] Consultation Noteon 01-27-20 Consultation Note [id number]#1.00TIFF [facility] Office Visiton 01-10-2023 Follow-up visit [id number] Megan Tran 1985 F Date Provider Department Center 01/10/2023 MACRINA FISCHER [facility] Family History Problem [...] Alive Son Alive Son Alive Level of Service:56353 [place] OFFICE/OUTPATIENT ESTABLISHED LOW MDM 20-29 MIN Normal [facility] Insurance Correspondenceon 1 03-11-2022 Insurance Correspondence [id number]#1.00TIFF Normal [facility] Ambulatory Visit Summaryon 1 03-06-2022 Ambulatory [...] HEREDIA, LORAINE Razo Where: [facility] Ambulatory Visit Summary LEANA TRAN :1985 [...] Appointments Sunday 9:00 AM EDT With: TEJ EHREDIA, LORAINE Razo Where: [facility] Consent for Procedure/Surger yon 01-04-2023 Consent for Procedure/Surgery [id number]#1.00TIFF [facility] Hemoglobin [id number] By: Alize Kong on 01-01-2023 [facility] Office Visiton 01-01-2023 Follow-up visit [id number] Megan Tran 1985 Provider Department Center 01/01/2023 ANGELIKA SUTTON JAKY [facility] Family History Problem Relation Age of [...] Alive Son Alive Son Alive Level of Service:64064 [place] OFFICE/OUTPATIENT ESTABLISHED [facility] 10-19 MIN Normal [facility] 36on 12-25-2022 36 Pt calls stating yareli t she was seen 12/18 at ER for Chest pain an EKG was done and she would like to discuss her results. Normal [facility] Telephoneon 12-25-2022 Telephone [id number] Megan Tran 1985 Provider Department Center 12/25/2022 135-MACRINA [facility] Family History Problem [...] Son Alive Son Alive Son Alive Normal [facility] XR CHEST PORTABLEon 12-20-19 XR CHEST [...] Juan Kidd MD 12/19/22 Final result Normal [facility] Basic Metabolic Profon 12-18 Anion gap [Moles/Vol] 10 mmol/L Normal 10-22 [facility] Comment on above: Performed By: #### B ANTHONY DRAPER TROPI #### [facility] [address] [place] [address] Hospitality Aide: Belén Dale MD BUN/CRE Ratio 12 Normal 10-25 [facility] Comment on above: Performed By: #### B ANTHONY DRAPER TROPI #### [facility] [address] [place] [address] Hospitality Aide: Belén Dale MD Calcium [Mass/Vol] 9.5 mg/dL Normal 8.6-10.4 [facility] Comment on above: Performed By: #### B ANTHONY DRAPER TROPI #### [facility] [address] [place] [address] Hospitality Aide: Belén Dale MD Chloride [Moles/Vol] 102 mmol/L Normal 98-107 [facility] Comment on above: Performed By: #### B ANTHONY DRAPER, TROPI #### [facility] [address] [place] [address] Hospitality Aide: Belén Dale MD CO2 [Moles/Vol] 26 mmol/L Normal 20-31 [facility] Comment on above: Performed By: #### B ANTHONY DRAPER, TROPI #### [facility] [address] [place] [address] Hospitality Aide: Belén Dale MD Creatinine [Mass/Vol] 1.0 mg/dL High 0.5-0.9 [facility] Comment on above: Performed By: #### B ANTHONY DRAPER, TROPI #### [facility] [address] [place] [address] Hospitality Aide: Belén Dale MD GFR/1.73 sq M.predicted among non-blacks MDRD (S/P/Bld) [Vol rate/Area] mL/min/{1.73_m2} Normal >60 [facility] Comment on above: Result Comment: These [...] By: #### B ANTHONY DRAPER, TROPI #### [facility] [address] [place] [address] Hospitality Aide: Belén Dale MD Glucose [Mass/Vol] 97 mg/dL Normal 70-99 [facility] Comment on above: Performed By: #### B ANTHONY DRAPER, TROPI #### [facility] [address] [place], [place] [address] Hospitality Aide: Belén Dale MD Potassium [Moles/Vol] 4.0 mmol/L Normal 3.7-5.3 [facility] Comment on above: Performed By: #### B ANTHONY DRAPER, TROPI #### [address] [place] [address] Hospitality Aide: Belén Dale MD Sodium [Moles/Vol] 138 mmol/L Normal 135-144 [facility] Comment on above: Performed By: #### B ANTHONY DRAPER, TROPI #### [address] [place], [place] [address]383 Hospitality Aide: Belén Dale MD Urea nitrogen [Mass/Vol] 12 mg/dL Normal 6-20 [facility] Comment on above: Performed By: #### B ANTHONY DRAPER, TROPI #### [address] [place], [place] [id number] Hospitality Aide: Belén Dale MD CBC with Diffon 12-18-2022 Abs. Basophil 0.04 k/uL Normal 0.00-0.20 [facility] Comment on above: Performed By: #### B ANTHONY DRAPER, TROPI #### [address] [place] [address] Hospitality Aide: Belén Dale MD Abs.Imm.Granulocyte 0.04 k/uL Normal 0.00-0.30 [facility] Comment on above: Performed By: #### B ANTHONY DRAPER, TROPI #### [address] [place], [place] [id number] Hospitality Aide: Belén Dale MD Abs.Neutrophil (Seg) 5.01 k/uL Normal 1.50-8.10 [facility] Comment on above: Performed By: #### B ANTHONY DRAPER, TROPI #### [address] [place], [place] [address]883 Hospitality Aide: Belén Dale MD Basophils/100 WBC (Bld) 1 % Normal 0-2 [facility] Comment on above: Performed By: #### B BARON CDP, TROPI #### [address] [place], [place] [id number] Hospitality Aide: Belén Dale MD Eosinophils (Bld) [#/Vol] 0.19 10*3/uL Normal 0.00-0.44 [facility] Comment on above: Performed By: #### B BARON CDP, TROPI #### [address] [place], [place] [address]83 Hospitality Aide: Belén Dale MD Eosinophils/100 WBC (Bld) 3 % Normal 1-4 [facility] Comment on above: Performed By: #### B ANTHONY DRAPER, TROPI #### [address] [place], [facility] Hospitality Aide: Belén Dale MD Erythrocyte distribution width (RBC) [Ratio] 11.6 % Low 11.8-14.4 [facility] Comment on above: Performed By: #### B ANTHONY DRAPER, TROPI #### [address] [place] [phone] Hospitality Aide: Belén Dale MD Hematocrit (Bld) [Volume fraction] 44.3 % Normal 36.3-47.1 [facility] Comment on above: Performed By: #### B ANTHONY DRAPER, TROPI #### [address] [place] [address] Hospitality Aide: Belén Dale MD Hemoglobin (Bld) [Mass/Vol] 14.8 g/dL Normal 11.9-15.1 [facility] Comment on above: Performed By: #### B BARON CDP, TROPI #### [address] [place] [address]783 Hospitality Aide: Belén Dale MD Immature granulocytes/100 WBC (Bld) 1 % High 0 [facility] Comment on above: Performed By: #### B ANTHONY DRAPER, TROPI #### [facility] [address] [place] [address] Dr[place], [place] 1487[address] Hospitality Aide: Belén Dale MD Lymphocytes (Bld) [#/Vol] 1.71 10*3/uL Normal 1.10-3.70 [facility] Comment on above: Performed By: #### B ANTHONY DRAPER, TROPI #### [address] [place], [place] [address] Hospitality Aide: Belén Dale MD Lymphocytes/100 WBC (Bld) 23 % Low 24-43 [facility] Comment on above: Performed By: #### B ANTHONY DRAPER, TROPI #### [address] [place], [facility]83 Hospitality Aide: Belén Dale MD MCH (RBC) [Entitic mass] 29.0 pg Normal 25.2-33.5 [facility] Comment on above: Performed By: #### B ANTHONY DRAPER, TROPI #### [address] [place], [facility]83 Hospitality Aide: Belén Dale MD MCHC (RBC) [Mass/Vol] 33.4 g/dL Normal 28.4-34.8 [facility] Comment on above: Performed By: #### B ANTHONY DRAPER, TROPI #### [address] [place], [place] 1147483 Hospitality Aide: Belén Dale MD MCV (RBC) [Entitic vol] 86.9 fL Normal 82.6-102.9 [facility] Comment on above: Performed By: #### B ANTHONY DRAPER, TROPI #### [facility] [address] [place] [address] Dr. [place], [place] [address]83 Hospitality Aide: Belén Dale MD Monocytes (Bld) [#/Vol] 0.44 10*3/uL Normal 0.10-1.20 [facility] Comment on above: Performed By: #### B MP CDP, TROPI #### [facility] [address] [place] [address] Hospitality Aide: Belén Dale MD Monocytes/100 WBC (Bld) 6 % Normal 3-12 [facility] Comment on above: Performed By: #### B BARON CDP, TROPI #### [facility] [address] [place] [address] Hospitality Aide: Belén Dale MD Neutrophil (Seg) 66 % High 36-65 [facility] Comment on above: Performed By: #### B BARON CDP, TROPI #### [facility] [address] [place] [address] Hospitality Aide: Belén Dale MD NRBC Automated 0.0 per 100 WBC Normal 0.0 [facility] Comment on above: Performed By: #### B ANTHONY DRAPER, TROPI #### [facility] [address] [place] [address] Hospitality Aide: Belén Dale MD Platelet mean volume (Bld) [Entitic vol] 9.9 fL Normal 8.1-13.5 [facility] Comment on above: Performed By: #### B ANTHONY DRAPER, TROPI #### [facility] [address] [place] [address] Hospitality Aide: Belén Dale MD Platelets (Bld) [#/Vol] 280 10*3/uL Normal 138-453 [facility] Comment on above: Performed By: #### B BARON CDP, TROPI #### [facility] [address] [place], [place] [address]83 Hospitality Aide: Belén Dale MD RBC (Bld) [#/Vol] 5.10 10*6/uL Normal 3.95-5.11 [facility] Comment on above: Performed By: #### B ANTHONY DRAPER, TROPI #### [facility] [address] [place] [address] Hospitality Aide: Belén Dale MD WBC (Bld) [#/Vol] 7.4 10*3/uL Normal 3.5-11.3 [facility] Comment on above: Performed By: #### B MP, CDP, TROPI #### [facility] [address] [place] [address] Hospitality Aide: Belén Dale MD D-Dimer Teston 12-18-2022 D-Dimer Test 0.36 ug/mL FEU Normal 0.00-0.59 [facility] Comment on above: Result Comment: When [...] with distal DVT. Performed By: #### M G, BMPX, CDP #### [facility] [address] [place] [address] Hospitality Aide: Belén Dale MD Physician Referralon 023 Physician Referral [phone] [id number] Normal [facility] [id number] 12-18-2022 SARS-CoV-2 (COVID-19) RNA CHRISTI+probe Ql (Unsp spec) Not detected Normal NOTDET [facility] Comment on above: Result Comment: Rapid [...] management decisions. Fact sheet for Healthcare Providers: https://www.fda.gov/media/646938/download Fact sheet for Patients: https://www.fda.gov/media/264676/download Methodology: Isothermal Nucleic Acid Amplification Performed By: #### M Francisca BMPX, CDP #### [facility] [address] [place] [address] Hospitality Aide: Belén Dale MD Troponinon 12-18-2022 Troponin, High Sens 6 ng/L Normal 0-14 [facility] Comment on above: Result Comment: High Sensitivity Troponin values cannot be compared with other Troponin methodologies. Performed By: #### B MP, ANTHONY, TROPI #### [facility] [address] [place] [address] Hospitality Aide: Belén Dale MD Telemedicineon 11-14-2022 Telemedicine [id number] Megan Tran 1985 [facility] Provider Department [place] 11/14/2022 [facility] CARD [place] HeartVAS Family History Problem Relation Age of Onset Other Mother Hypertension Mother Heart failure Mother Diabetes Mother Skin cancer Mother Coronary artery disease Mother Heart attack Mother Comments: 52 Heart disease Mother Kidney disease Mother Stroke Mother Diabetes type II Mother Heart disease Father Comments: 57 Heart attack Father Heart murmur Father Diabetes type II Sister Hypertension Sister Ecsar's thyroiditis Mother's Sister Aortic aneurysm Maternal Grandmother Comments: 60 Other Son Fainting Son Asthma Son Family Status - Relation Status Age at Mother Father Sister Mother's Sister Maternal Grandmother Son Alive Son Alive Son Alive Level of Service:22324 [place] OFFICE/OUTPATIENT ESTABLISHED LOW MDM 20-29 MIN Reason for Visit and Comments: Telehealth Audio/video Visit [871] Normal [facility] CBC W Auto Differential pane l (Bld)on 10-02-2022 Basophils (Bld) [#/Vol] 0.04 10*3/uL Normal <0.11 [facility] Comment on above: Order Comment: Speci men Type: BLOOD SPECIMENOrdering Facility: [facility] Address: [address] [place] [address] Performed By: #### 5 7021-8 ####[facility] LABCLIA [id number] [place] [address] Basophils/100 WBC (Bld) 0.6 % Normal [facility] Comment on above: Order Comment: Merritti dhara Type: BLOOD SPECIMENOrdering Facility: [facility] Address: [address] [place] [address] Performed By: #### 5 7021-8 ####[facility] LABCLIA [id number] [place] [address] Differential cell count method Nom (Bld) Auto Normal [facility] Comment on above: Order Comment: Speci men Type: BLOOD SPECIMENOrdering Facility: [facility] Address: [address] [place] [address] Performed By: #### 5 7021-8 ####[facility] LABCLIA [id number] [place] [address] Eosinophils (Bld) [#/Vol] 0.21 10*3/uL Normal <0.46 [facility] Comment on above: Order Comment: Speci men Type: BLOOD SPECIMENOrdering Facility: [facility] Address: [address] [place] [address] Performed By: #### 5 7021-8 ####[facility] LABCLIA [id number] [place] [address] Eosinophils/100 WBC (Bld) 3.1 % Normal [facility] Comment on above: Order Comment: Speci men Type: BLOOD SPECIMENOrdering Facility: [facility] Address: [address] [place] [address] Performed By: #### 5 7021-8 ####[facility] LABCLIA [id number] [place] [address] Erythrocyte distribution width (RBC) [Ratio] 11.9 % Normal 11.5-15.0 [facility] Comment on above: Order Comment: Speci men Type: BLOOD SPECIMENOrdering Facility: [facility] Address: [address] [place] [address] Performed By: #### 5 7021-8 ####[facility] LABCLIA [id number] [place] [address] Hematocrit (Bld) [Volume fraction] 42.7 % Normal 36.0-46.0 [facility] Comment on above: Order Comment: Speci men Type: BLOOD SPECIMENOrdering Facility: [facility] Address: [address] [place] [address] Performed By: #### 5 7021-8 ####[facility] LABCLIA [id number] [place] [address] Hemoglobin (Bld) [Mass/Vol] 14.3 g/dL Normal 11.5-15.5 [facility] Comment on above: Order Comment: Speci men Type: BLOOD SPECIMENOrdering Facility: [facility] Address: [address] [place] [address] Performed By: #### 5 7021-8 ####[facility] LABCLIA [id number] [place] [address] Immature granulocytes (Bld) [#/Vol] 0.03 10*3/uL Normal <0.10 [facility] Comment on above: Order Comment: Speci men Type: BLOOD SPECIMENOrdering Facility: [facility] Address: [address] [place] [address] Performed By: #### 5 7021-8 ####[facility] LABCLIA [id number] [place] [address] Immature granulocytes/100 WBC (Bld) 0.4 % Normal [facility] Comment on above: Order Comment: Speci men Type: BLOOD SPECIMENOrdering Facility: [facility] Address: [address] [place] [address] Performed By: #### 5 7021-8 ####[facility] LABCLIA [id number] [place] [address] Lymphocytes (Bld) [#/Vol] 1.60 10*3/uL Normal 1.00-4.00 [facility] Comment on above: Order Comment: Speci men Type: BLOOD SPECIMENOrdering Facility: [facility] Address: [address] [place] [address] Performed By: #### 5 7021-8 ####[facility] LABCLIA [id number] [place] [address] Lymphocytes/100 WBC (Bld) 23.7 % Normal [facility] Comment on above: Order Comment: Speci men Type: BLOOD SPECIMENOrdering Facility: [facility] Address: [address] [place] [address] Performed By: #### 5 7021-8 ####[facility] LABCLIA [id number] [place] [address] MCH (RBC) [Entitic mass] 28.6 pg Normal 26.0-34.0 [facility] Comment on above: Order Comment: Speci men Type: BLOOD SPECIMENOrdering Facility: [facility] Address: [address] [place] [address] Performed By: #### 5 7021-8 ####[facility] LABCLIA [id number] [place] [address] MCHC (RBC) [Mass/Vol] 33.5 g/dL Normal 30.5-36.0 [facility] Comment on above: Order Comment: Speci men Type: BLOOD SPECIMENOrdering Facility: [facility] Address: [address] [place] [address] Performed By: #### 5 7021-8 ####[facility] LABCLIA [id number] [place] [address] MCV (RBC) [Entitic vol] 85.4 fL Normal 80.0-100.0 [facility] Comment on above: Order Comment: Speci men Type: BLOOD SPECIMENOrdering Facility: [facility] Address: [address] [place] [address] Performed By: #### 5 7021-8 ####[facility] LABCLIA [id number] [place] [address] Monocytes (Bld) [#/Vol] 0.31 10*3/uL Normal <0.87 [facility] Comment on above: Order Comment: Speci men Type: BLOOD SPECIMENOrdering Facility: [facility] Address: [address] [place] [address] Performed By: #### 5 7021-8 ####[facility] LABCLIA [id number] [place] [address] Monocytes/100 WBC (Bld) 4.6 % Normal [facility] Comment on above: Order Comment: Speci men Type: BLOOD SPECIMENOrdering Facility: [facility] Address: [address] [place] [address] Performed By: #### 5 7021-8 ####[facility] LABCLIA [id number] [place] [address] Neutrophils (Bld) [#/Vol] 4.57 10*3/uL Normal 1.45-7.50 [facility] Comment on above: Order Comment: Speci men Type: BLOOD SPECIMENOrdering Facility: [facility] Address: [address] [place] [address] Performed By: #### 5 7021-8 ####[facility] LABCLIA [id number] [place] [address] Neutrophils/100 WBC (Bld) 67.6 % Normal [facility] Comment on above: Order Comment: Speci men Type: BLOOD SPECIMENOrdering Facility: [facility] Address: [address] [place] [address] Performed By: #### 5 7021-8 ####[facility] LABCLIA [id number] [place] [address] Nucleated RBC (Bld) [#/Vol] 10*3/uL Normal <0.01 [facility] Comment on above: Order Comment: Speci men Type: BLOOD SPECIMENOrdering Facility: [facility] Address: [address] [place] [address] Performed By: #### 5 7021-8 ####[facility] LABCLIA [id number] [place] [address] Nucleated RBC/100 WBC (Bld) [Ratio] 0.0 /100 WBC Normal [facility] Comment on above: Order Comment: Speci men Type: BLOOD SPECIMENOrdering Facility: [facility] Address: [address] [place] [address] Performed By: #### 5 7021-8 ####[facility] LABIA [id number] [place] [address] Platelet mean volume (Bld) [Entitic vol] 9.5 fL Normal 9.0-12.7 [facility] Comment on above: Order Comment: Speci men Type: BLOOD SPECIMENOrdering Facility: [facility] Address: [address] [place] [address] Performed By: #### 5 7021-8 ####[facility] LABIA [id number] [place] [address] Platelets (Bld) [#/Vol] 248 10*3/uL Normal 150-400 [facility] Comment on above: Order Comment: Speci men Type: BLOOD SPECIMENOrdering Facility: [facility] Address: [address] [place] [address] Performed By: #### 5 7021-8 ####[facility] LABIA [id number] [place] [address] RBC (Bld) [#/Vol] 5.00 10*6/uL Normal 3.90-5.20 [facility] Comment on above: Order Comment: Speci men Type: BLOOD SPECIMENOrdering Facility: [facility] Address: [address] [place] [address] Performed By: #### 5 7021-8 ####[facility] [id number] [place] [address] WBC (Bld) [#/Vol] 6.76 10*3/uL Normal 3.70-11.00 [facility] Comment on above: Order Comment: Speci men Type: BLOOD SPECIMENOrdering Facility: [facility] Address: [address] [place] [address] Performed By: #### 5 7021-8 ####[facility] LABIA [id number] [place] [address] CNOVSRuiz 10-02-2022 CNOVS Visit (SP) Office (Janet BUNN) LEANA TRAN ([id number]) 1985 F Date Time Provider Department 10/02/22 9:45 AM FUENTES AMARAL During your visit today, we recorded the following information about you: Temperature Pulse Respiration Blood pressure 97.7 degrees 58/minute 16/minute 140/79 Weight Height 100.2 kg 1.626 m Fuentes Amaral MD 10/02/2022 9:55 AM Signed HEMATOLOGY FOLLOW UP October 02, 2022 (Yves) Some elements in this clinic note that are critical to medical decision making have been carefully reviewed and included from a prior clinic note dated:April 17, 2022 (Yves) AND April 03, 2022 (Yves) PCP and other physicians involved in patient's [...] 2022: Telephone (more content not included)... Normal [facility] Comprehensive metabolic 2000 panelon 10-02-2022 Albumin [Mass/Vol] 4.5 g/dL Normal 3.9-4.9 [facility] Comment on above: Order Comment: Speci men Type: BLOOD SPECIMENOrdering Facility: [facility] Address: [address] [place] [address] Performed By: #### 2 4323-8 ####[facility] LABCLIA [id number] [place] [address] ALP [Catalytic activity/Vol] 80 U/L Normal 34-123 [facility] Comment on above: Order Comment: Speci men Type: BLOOD SPECIMENOrdering Facility: [facility] Address: [address] [place] [address] Performed By: #### 2 4323-8 ####[facility] LABCLIA [id number] [place] [address] ALT [Catalytic activity/Vol] 20 U/L Normal 7-38 [facility] Comment on above: Order Comment: Speci men Type: BLOOD SPECIMENOrdering Facility: [facility] Address: [address] [place] [address] Performed By: #### 2 4323-8 ####[facility] LABCLIA [id number] [place] [address] Anion gap [Moles/Vol] 14 mmol/L Normal 9-18 [facility] Comment on above: Order Comment: Speci men Type: BLOOD SPECIMENOrdering Facility: [facility] Address: [address] [place] [address] Performed By: #### 2 4323-8 ####[facility] LABIA [id number] [place] [address] AST [Catalytic activity/Vol] 13 U/L Normal 13-35 [facility] Comment on above: Order Comment: Speci men Type: BLOOD SPECIMENOrdering Facility: [facility] Address: [address] [address] Performed By: #### 2 4323-8 ####[facility] LABCLIA [id number] [place] [address] Bilirubin [Mass/Vol] 0.4 mg/dL Normal 0.2-1.3 [facility] Comment on above: Order Comment: Speci men Type: BLOOD SPECIMENOrdering Facility: [facility] Address: [address] [address] Performed By: #### 2 4323-8 ####[facility] LABCLIA [id number] [place] [address] Calcium [Mass/Vol] 9.5 mg/dL Normal 8.5-10.2 [facility] Comment on above: Order Comment: Speci men Type: BLOOD SPECIMENOrdering Facility: [facility] Address: [address] [address] Performed By: #### 2 4323-8 ####[facility] LABCLIA [id number] [place] [address] Chloride [Moles/Vol] 106 mmol/L High 97-105 [facility] Comment on above: Order Comment: Speci men Type: BLOOD SPECIMENOrdering Facility: [facility] Address: [address] [place] [address] Performed By: #### 2 4323-8 ####[facility] LABCLIA [id number] [place] [address] CO2 [Moles/Vol] 21 mmol/L Low 22-30 [facility] Comment on above: Order Comment: Speci men Type: BLOOD SPECIMENOrdering Facility: [facility] Address: [address] [address] Performed By: #### 2 4323-8 ####[facility] LABCLIA [id number] [place] [address] Creatinine [Mass/Vol] 1.05 mg/dL High 0.58-0.96 [facility] Comment on above: Order Comment: Dulce Maria dhara Type: BLOOD SPECIMENOrdering Facility: [facility] Address: [address] [address] Performed By: #### 2 4323-8 ####[facility] LABCLIA [id number] [place] [address] Creatinine and Glomerular filtration rate.predicted panel (S/P/Bld) 70 mL/min/1.73m??? Normal >=60 [facility] Comment on above: Order Comment: Dulce Maria dhara Type: BLOOD SPECIMENOrdering Facility: [facility] Address: [address] [address] Result Comment: Maricarmen mated Glomerular Filtration Rate [...] actual GFR. Performed By: #### 2 4323-8 ####[facility] LABCLIA [id number] [place] [address] Glucose [Mass/Vol] 113 mg/dL High 74-99 [facility] Comment on above: Order Comment: Dulce Maria dhara Type: BLOOD SPECIMENOrdering Facility: [facility] Address: [address] [address] Result Comment: The [place] [employer] (ADA) provides guidance for cutoff [...] Standards of Medical Care in Diabetes 2016, [place] [employer]. Diabetes Care. 2016.39(Suppl 1). Performed By: #### 2 4323-8 ####[facility] LABCLIA [id number] [place] [address] Potassium [Moles/Vol] 3.7 mmol/L Normal 3.7-5.1 [facility] Comment on above: Order Comment: Speci men Type: BLOOD SPECIMENOrdering Facility: [facility] Address: [address] [place] [address] Performed By: #### 2 4323-8 ####[facility] LABCLIA [id number] [place] [address] Protein [Mass/Vol] 6.8 g/dL Normal 6.3-8.0 [facility] Comment on above: Order Comment: Speci men Type: BLOOD SPECIMENOrdering Facility: [facility] Address: [address] [place] [address] Performed By: #### 2 4323-8 ####[facility] LABCLIA [id number] [place] [address] Sodium [Moles/Vol] 141 mmol/L Normal 136-144 [facility] Comment on above: Order Comment: Speci men Type: BLOOD SPECIMENOrdering Facility: [facility] [facility] Address: [address] [place] [address] Performed By: #### 2 4323-8 ####[facility] LABCLIA [id number] [place] [address] Urea nitrogen [Mass/Vol] 15 mg/dL Normal 7-21 [facility] Comment on above: Order Comment: Speci men Type: BLOOD SPECIMENOrdering Facility: [facility] Address: [address] [place] [address] Performed By: #### 2 4323-8 ####[facility] LABCLIA [id number] [place] [address] CELIAC ANTIBODIES PROFILEon 06-16-2022 Deamidated Gliadin Abs, IgA 26 units Critically high 0-19 [facility] Comment on above: Result Comment: Nega tive 0 - 19 Weak Positive 20 - 30 Moderate to Strong Positive >30 Performed By: #### C BC #### [facility] [address] [place] [address] Dr. Nilton Mccall Deamidated Gliadin Abs, IgG 5 units Normal 0-19 [facility] Comment on above: Result Comment: Nega tive 0 - 19 Weak Positive 20 - 30 Moderate to Strong Positive >30 Performed By: #### C BC #### [facility] [address] [place] [address] Dr. Nilton Mccall Endomysial Antibody IgA Negative Normal Negative [facility] Comment on above: Performed By: #### C BC #### [facility] [address] [place] [address] Dr. Nilton Mccall Immunoglobulin A, Qn, Serum 205 mg/dL Normal 87-352 [facility] Comment on above: Performed By: #### C BC #### [facility] [address] [place] [address] Dr. Nilton Mccall t-Transglutaminase (tTG) IgA <2 Normal 0-3 [facility] Comment on above: Result Comment: Nega tive 0 - 3 Weak Positive 4 - 10 Positive >10 . Tissue Transglutaminase (tTG) has been identified as the endomysial antigen. Studies have demonstr- ated that endomysial IgA antibodies have over 99% specificity for gluten sensitive enteropathy. Performed By: #### C BC #### [facility] [address] [place] [address] Dr. Nilton Mccall t-Transglutaminase (tTG) IgG 3 U/mL Normal 0-5 [facility] Comment on above: Result Comment: Nega tive 0 - 5 Weak Positive 6 - 9 Positive >9 Performed By: #### C BC #### [facility] [address] [place] [address] Dr. Nilton Mccall CBC AUTO DIFFon 06-15-2022 BASO # 0.0 103/ul Normal 0.0-0.1 [facility] Comment on above: Performed By: #### C BC #### [facility] [address] [place] [address] Dr. Nilton Mccall Basophils/100 WBC (Bld) 0.5 % Normal 0.2-2.0 [facility] Comment on above: Performed By: #### C BC #### [facility] [address] [place] [address] Dr. Nilton Mccall EO # 0.2 103/ul Normal 0.0-0.7 [facility] Comment on above: Performed By: #### C BC #### [facility] [address] [place] [address] Dr. Nilton Mccall Eosinophils/100 WBC (Bld) 2.8 % Normal 0.9-7.0 [facility] Comment on above: Performed By: #### C BC #### [facility] [address] [place] [address] Dr. Nilton Mccall Erythrocyte distribution width (RBC) [Ratio] 11.8 % Normal 11.0-15.0 [facility] Comment on above: Performed By: #### C BC #### [facility] [address] [place] [address] Dr. Nilton Mccall Hematocrit (Bld) [Volume fraction] 41.8 % Normal 36.0-48.0 [facility] Comment on above: Performed By: #### C BC #### [facility] [address] [place] [address] Dr. Nilton Mccall Hemoglobin (Bld) [Mass/Vol] 14.2 g/dL Normal 12.0-16.0 [facility] Comment on above: Performed By: #### C BC #### [facility] [address] [place] [address] Dr. Nilton Mccall IG # 0.03 10e3/ul Normal 0.00-0.03 [facility] Comment on above: Performed By: #### C BC #### [facility] [address] [place] [address] Dr. Nilton Mccall IG % 0.4 % Normal 0.0-0.5 [facility] Comment on above: Performed By: #### C BC #### [facility] [address] [place] [address] Dr. Nilton Mccall LYMPH # 2.3 103/ul Normal 1.2-3.8 [facility] Comment on above: Performed By: #### C BC #### [facility] [address] [place] [address] Dr. Nilton Mccall Lymphocytes/100 WBC (Bld) 28.8 % Normal 20.5-60.0 [facility] Comment on above: Performed By: #### C BC #### [facility] [address] [place] [address] Dr. Nilton Mccall MANUAL DIFF REQ NO Normal [facility] Comment on above: Performed By: #### C BC #### [facility] [address] [place] [address] Dr. Nilton Mccall MCH (RBC) [Entitic mass] 29.4 pg Normal 26.7-34.0 [facility] Comment on above: Performed By: #### C BC #### [facility] [address] [place] [address] Dr. Nilton Mccall MCHC (RBC) [Mass/Vol] 34.0 g/dL Normal 29.9-35.2 [facility] Comment on above: Performed By: #### C BC #### [facility] [address] [place] [address] Dr. Nilton Mccall MCV (RBC) [Entitic vol] 86.5 fL Normal 81.0-99.0 [facility] Comment on above: Performed By: #### C BC #### [facility] [address] [place] [address] Dr. Nilton Mccall MONO # 0.4 103/ul Normal 0.3-0.8 [facility] Comment on above: Performed By: #### C BC #### [facility] [address] [place] [address] Dr. Nilton Mccall Monocytes/100 WBC (Bld) 4.5 % Normal 1.7-12.0 [facility] Comment on above: Performed By: #### C BC #### [facility] [address] [address] [address] Nilton Mccall NEUT # 5.0 103/ul Normal 1.4-6.5 [facility] Comment on above: Performed By: #### C BC #### [facility] [address] [address] [address] Nilton Mccall Neutrophils/100 WBC (Bld) 63.0 % Normal 43.0-75.0 [facility] Comment on above: Performed By: #### C BC #### [facility] [address] [address] [address] Nilton Mccall Platelet mean volume (Bld) [Entitic vol] 9.5 fL Normal 9.5-13.5 [facility] Comment on above: Performed By: #### C BC #### [facility] [address] [place] [address] Dr. Nilton Mccall PLT 279 103/ul Normal 150-450 [facility] Comment on above: Performed By: #### C BC #### [facility] [address] [place] [address] Dr. Nilton Mccall RBC 4.83 106/ul Normal 4.20-5.40 [facility] Comment on above: Performed By: #### C BC #### [facility] [address] [place] [address] Dr. Nilton Mccall WBC 7.9 103/ul Normal 4.0-11.0 [facility] Comment on above: Performed By: #### C BC #### [facility] [address] [place] [address] Dr. Nilton Mccall GLYCOHEMOGLOBIN A1Con 2022 ADA RECOMMENDATION SEE BELOW Normal [facility] Comment on above: Result Comment: ADA RECOMMENDED LIMIT 4.0 - 6.0 ADA THERAPEUTIC TARGET < 7.0 ACTION SUGGESTED > 7.0 Performed By: #### C MP #### [facility] [address] [place] [address] Dr. Nilton Mccall Glucose [Mass/Vol] 117 mg/dL Normal [facility] Comment on above: Performed By: #### C MP #### [facility] [address] [place] [address] Dr. Nilton Mccall HbA1c (Bld) [Mass fraction] 5.7 % Normal 4.5-6.2 [facility] Comment on above: Performed By: #### C MP #### [facility] [address] [place] [address] Dr. Nilton Mccall VIT B12 AND FOLATEon 023 Cobalamin (Vitamin B12) [Mass/Vol] 539.0 pg/mL Normal 193.0-986. 0 [facility] Comment on above: Performed By: #### C BC #### [facility] [address] [place] [address] Dr. Nilton Mccall FOLATE 16.40 ng/mL Normal 8.60-58.90 [facility] Comment on above: Performed By: #### C BC #### [facility] [address] [place] [address] Dr. Nilton Mccall VITAMIN D 25 OHon 06-15-2022 VIT D 25-OH 41.2 ng/mL Normal [facility] Comment on above: Performed By: #### C BC #### [facility] [address] [place] [address] Dr. Nilton Mccall VIT D RANGES SEE BELOW Normal [facility] Comment on above: Result Comment: <20 ng/mL Vit D deficient 20 - <30 ng/mL Vit D insufficient 30 - 100 ng/mL Vit D sufficient >100 ng/mL Potential Toxicity Performed By: #### C BC #### [facility] [address] [place] [address] Dr. Nilton Mccall FREE T3on 06-05-2022 FREE T3 2.39 pg/mlL Normal 2.18-3.98 [facility] Comment on above: Performed By: #### T SH, FT3 #### [facility] [address] [place] [address] Dr. Nilton Mccall FREE T4on 06-05-2022 Free T4 [Mass/Vol] 0.89 ng/dL Normal 0.76-1.46 [facility] Comment on above: Performed By: #### C MP #### [facility] [id number] Nilton Mccall TSHon 06-05-2022 TSH 1.431 uIU/mL Normal 0.358-3.74 0 [facility] Comment on above: Performed By: #### T , FT3 #### [facility] [id number] Nilton Mccall CNPNon 05-03-2022 CNPN Telephone (NEUR) LEANA TRAN ([id number]) 1985 F Date Time Provider Department 05/03/22 MEENA GRISSOM [facility] During your visit today, we recorded [...] food reac (more content not included)... Normal [facility] Ferritin SerPl-mCncon 2022 Ferritin [Mass/Vol] 95.0 ng/mL Normal 14.7-205.1 [facility] Comment on above: Order Comment: Speci men Type: BLOOD SPECIMENOrdering Facility: [facility] Address: [address] [address] Performed By: #### 2 276-4, 97808-4, 3034-6 ####[facility] LABIA [id number] [place] [address] [place] Iron and Iron binding capaci ty panelon 04-27-2022 Iron [Mass/Vol] 91 ug/dL Normal 41-186 [facility] Comment on above: Order Comment: Speci men Type: BLOOD SPECIMENOrdering Facility: [facility] Address: [address] [address] Performed By: #### 2 276-4, 81410-4, 3034-6 ####[facility] [id number] [place] [address] [place] Iron binding capacity [Mass/Vol] 310 ug/dL Normal 232-386 [facility] Comment on above: Order Comment: Speci men Type: BLOOD SPECIMENOrdering Facility: [facility] Address: [address] Performed By: #### 2 276-4, 60915-8, 3034-6 ####[facility] LABIA [id number] [address] [place] Iron/TIBC [Molar ratio] 29.4 % Normal 15.0-57.0 [facility] Comment on above: Order Comment: Speci men Type: BLOOD SPECIMENOrdering Facility: [facility] Address: [place] [address] Performed By: #### 2 276-4, 05338-0, 3034-6 ####[facility] [id number] [address] [id number] [place] Transferrin SerPl-mCncon Transferrin [Mass/Vol] 263 mg/dL Normal 200-360 [facility] Comment on above: Order Comment: Speci men Type: BLOOD SPECIMENOrdering Facility: [facility] Address: [place] [address] Performed By: #### 2 276-4, 73928-3, 3034-6 ####[facility] LABIA [id number] [address] [place] [id number] [place] CNOVSPon 04-03-2022 CNOVSP Visit (SP) Office (H EMASA) LEANA TRAN ([id number]) 1985 F Date Time Provider Department 04/03/22 11:00 AM FUENTES AMARAL During your visit today, we recorded the following information about you: Temperature Pulse Respiration Blood pressure 97.9 degrees 74/minute 16/minute 147/65 Weight Height 99.3 kg 1.626 m Elizabeth Rodriges MA 04/03/2022 10:45 AM Signed Patient is still bruising. ALIZE Starr MD 04/03/2022 11:08 AM Signed HEMATOLOGY FOLLOW UP April 03, 2022 (Yves) Some elements in this clinic note that are critical to medical decision making have been carefully reviewed and included from a prior clinic note dated:February 10, 2022 (Yves) PCP and other physicians involved in patient's [...] TSH 0.0 (more content not included)... Normal [facility] Feroz 04-03-2022 [employer] [facility] [employer] [facility] Telephone ([facility]) LEANA TRAN ([id number]) 1985 F Date Time Provider Department 04/03/22 [...] reaction [T50.9 (more content not included)... Normal [facility] PLATELET TRANSMISSION ELECTR ON MICROSCOPIC STUDYon 03-29-2022 PLATELET TEM Performed Normal [facility] Comment on above: Order Comment: Speci men Type: BLOOD SPECIMEN [facility] Address: [address] [place] [id number] Performed By: #### P LTEMS #### [facility] CLIA [id number] [address] [place] [address] PTEM INTERPRETATION SEE NOTE Normal [facility] Comment on above: Order Comment: Speci men Type: BLOOD SPECIMEN [facility] Address: [address] [place] [id number] Result Comment: IMPR ESSION: Platelet transmission electron [...] its performance characteristics determined by [facility] in a manner consistent with CLIA requirements. This test has not been cleared or approved by the U.S. Food and Drug Administration. Test Performed by: [facility] [address] Hospitality Aide: Shree Norwood M.D. Ph.D.; CLIA# [id number] Performed By: #### P LTEMS #### [facility] CLIA [id number] [address] [place] [address] Feroz 03-21-2022 CNPN Telephone (HEMASA) LEANA TRAN ([id number]) 1985 F Date Time Provider Department 03/21/22 YANCY COOK During your visit today, we recorded the following information about you: Yancy Cook RN 03/21/2022 10:45 AM Signed Received call from pt stating she was not able to get her PLT lab test done in [place] d/t them no longer doing them on or fridays so she needs to move out her appt with Dr Salas so she has time to try again to get lab done. Pt transferred to senior front end web developer to reschedule f/u appt. Yancy Cook RN [...] 06/14/2021 Prim (more content not included)... Normal [facility] Specimen Rejectionon 023 Reason for rejection Unable to perform t esting: Specimen age beyond stability limit. Normal [facility] Comment on above: Performed By: #### CELESTINA Cam CDP #### [facility] [address] [place] [address] Hospitality Aide: Belén Dale MD Source of sample .BLOOD Normal [facility] Comment on above: Performed By: ###CELESTINA Betancourt CDP #### [facility] [address] [place] [address] Hospitality Aide: Belén Dale MD Test ordered PLTEM Normal [facility] Comment on above: Performed By: #### CELESTINA Cam CDP #### [facility] [address] [place] [address] Hospitality Aide: MD Feroz Chand 02-24-2022 RYANNE Telephone (NHMNS2) LEANA TRAN ([id number]) 1985 F Date Time Provider Department 02/24/22 BHARGAVI SALDANA NHMNS2 During your visit today, we recorded the following information about you: Vikash Oreilly RN 02/24/2022 3:16 PM Signed PA submitted via [employer]. Kurt TRAN ([place]: [id number]) Your information has been submitted to [employer]. To check for an updated outcome later, reopen this PA request from your dashboard. If [facility] has not responded to your request within 24 hours, contact [facility] at . If you think there may [...] Arachnoid c (more content not included)... Normal [facility] Feroz 02-17-2022 RYANNE Telephone (HEMASA) MARCLEANA Tan ([id number]) 1985 F Date Time Provider Department 02/17/22 YANCY COOK During your visit today, we recorded the following information about you: Yancy Cook RN 02/17/2022 4:35 PM Signed Received call from Melodie at [facility] in [place] stating pt had her platelet transmission lab done there but it is a lab test that they send out to other labs and they wanted to know if Dr Salas has a preference on what lab they send it to d/t different labs running the test different ways. ZACH: Please advise. CYNTHIA Liang MD 02/17/2022 5:23 PM Signed [facility] would be good. Yancy Cook RN 02/20/2022 8:45 AM Signed Informed Lindsey of Dr Salas's response. Lindsey states that [facility] will only except if pt was drawn on and pt was drawn on Sunday so they are sending it out today to [place], unless Dr Salas would like pt to come back in for a redraw so it can be sent to [facility]. CYNTHIA Liang MD 02/20/2022 8:50 AM Signed [...] - Fully Assessed Reason for Visit: Orders [081] Question [0347] Prescriptions as of 02/20/2022 - DULoxetine (CYMBALTA) [...] once daily (more content not included)... Normal [facility] T4, Freeon 02-17-2022 Thyroxine, Free 1.34 ng/dL 0.93 - 1.70 ng/dL [facility] TSH w/reflex to FT4on 2022 Thyroid Stim. Horm. 0.08 uIU/mL Low 0.30-5.00 [facility] Comment on above: Performed By: #### T SHX #### [facility] [address] [place] [address] Hospitality Aide: Belén Dale MD #### FT4 #### [facility] [address] [place], [place] [id number] Hospitality Aide: Emanuel Reaves MD TSH with Reflexon 02-17-2022 Interpretation and review of laboratory results Abnormal [facility] TSH Qn 0.08 m[IU]/L Low [facility] Thyroxine, Freeon 02-17-2022 Thyroxine, Free 1.34 ng/dL Normal 0.93-1.70 [facility] Comment on above: Performed By: #### T SHX #### [facility] [address] [place] [address] Hospitality Aide: Belén Dale MD #### FT4 #### [facility] [address] [place] [address] Hospitality Aide: MD Feroz Fish 02-16-2022 CNPN Telephone (HEMASA) LEANA TRAN ([id number]) 1985 F Date Time Provider Department 02/16/22 YANCY COOK During your visit today, we recorded the following information about you: Yancy Cook RN 02/16/2022 1:30 PM Signed Received call from pt stating Dr Salas told her to see giver but their office needs a referral. ZACH: Order pending, please review and sign. CYNTHIA Liang RN 02/17/2022 8:39 AM Signed PSS: Please set pt up with referral to her preferred giver. Thank you. CYNTHIA Liang 02/17/2022 8:55 AM Signed Pt would like referral sent to Stephon Cronin MD @ [facility]. Lauren, will you please fax records when order is signed? Demo in your box, thanks! Loraine Joshua Huggins [facility] 02/17/2022 9:45 AM Signed Records faxed to Dr. Cronin. Janine Hogan Pss 02/23/2022 1:[address] Cronin office spoke with Shanna. She states they have received this referral. Shanna wanted to let us know they do have a [address] list [address] Cronin. She states they can get patients in sooner with their PICKLING TANK OPERATOR, when they call patients to schedule they offer appointment with PICKLING TANK OPERATOR first. Patient has been scheduled with Macrina Wadsworth PICKLING TANK OPERATOR on 04/04 @ 11:00. Janine Edison Pss [...] [D68.9] Order(s):CONSULT TO CARDIOLOGY [9004] Order #: [id number]: 1 FUTURE Prescriptions as of 02/23/2022 - [...] 5,000 Unit (more content not included)... Normal [facility] CNOVSPon 02-10-2022 CNOVSP Visit (SP) Office (H EMASA) LEANA TRAN ([id number]) 1985 F Date Time Provider Department 02/10/22 2:00 PM FUENTES AMARAL During your visit today, we recorded the following information about you: Temperature Pulse Respiration Blood pressure 97.9 degrees 97/minute 16/minute 124/59 Weight Height 98.2 kg 1.626 m Fuentes Amaral MD 02/12/2022 2:10 PM Signed HEMATOLOGY FOLLOW UP February 10, 2022 (Yves) Some elements in this clinic note that are critical to medical decision making have been carefully reviewed and included from a prior clinic note dated: November 18, 2021 (Yves) PCP and other physicians involved in patient's [...] comes in (more content not included)... Normal [facility] 02-01-2022 [employer] [facility] [employer] [facility] Telephone ([facility]) LEANA TRAN ([id number]) 1985 F Date Time Provider Department 02/01/22 [facility] During your [...] reaction [T50.905A] (more content not included)... Normal [facility] CBC with Diffon 01-30-2022 Abs. Basophil 0.04 k/uL Normal 0.00-0.20 [facility] Comment on above: Performed By: #### C P, CDP #### [facility] [address] [place] [address] [place] [address] Hospitality Aide: Belén Dale MD Abs.Imm.Granulocyte 0.04 k/uL Normal 0.00-0.30 [facility] Comment on above: Performed By: #### C P, CDP #### [address] [place] [address] Hospitality Aide: Belén Dale MD Abs.Neutrophil (Seg) 6.83 k/uL Normal 1.50-8.10 [facility] Comment on above: Performed By: #### C P, CDP #### [address] [place] [address] Hospitality Aide: Belén Dale MD Basophils/100 WBC (Bld) 0 % Normal 0-2 [facility] Comment on above: Performed By: #### C P, CDP #### [facility] [address] [place], [place] [address] Hospitality Aide: Belén Dale MD Eosinophils (Bld) [#/Vol] 0.19 10*3/uL Normal 0.00-0.44 [facility] Comment on above: Performed By: #### C P, CDP #### [address] [place], [facility] Hospitality Aide: Belén Dale MD Eosinophils/100 WBC (Bld) 2 % Normal 1-4 [facility] Comment on above: Performed By: #### C P, CDP #### [address] [place], [place] [address] Hospitality Aide: Belén Dale MD Erythrocyte distribution width (RBC) [Ratio] 11.6 % Low 11.8-14.4 [facility] Comment on above: Performed By: #### C P, CDP #### [address] [place], [facility]83 Hospitality Aide: Belén Dale MD Hematocrit (Bld) [Volume fraction] 46.1 % Normal 36.3-47.1 [facility] Comment on above: Performed By: #### C P, CDP #### [address] [place], [facility]83 Hospitality Aide: Belén Dale MD Hemoglobin (Bld) [Mass/Vol] 15.9 g/dL High 11.9-15.1 [facility] Comment on above: Performed By: #### C P, CDP #### [address] [place], [facility]83 Hospitality Aide: Belén Dale MD Immature granulocytes/100 WBC (Bld) 0 % Normal 0 [facility] Comment on above: Performed By: #### C P, CDP #### [address] [place], [facility]83 Hospitality Aide: Belén Dale MD Lymphocytes (Bld) [#/Vol] 1.67 10*3/uL Normal 1.10-3.70 [facility] Comment on above: Performed By: #### C P, CDP #### [facility] [address] [place], [place] [id number] Hospitality Aide: Belén Dale MD Lymphocytes/100 WBC (Bld) 18 % Low 24-43 [facility] Comment on above: Performed By: #### C P, CDP #### [facility] [address] [place], [facility] [facility] Hospitality Aide: Belén Dale MD MCH (RBC) [Entitic mass] 29.8 pg Normal 25.2-33.5 [facility] Comment on above: Performed By: #### C P, CDP #### [address] [place], [facility] Hospitality Aide: Belén Dale MD MCHC (RBC) [Mass/Vol] 34.5 g/dL Normal 28.4-34.8 [facility] Comment on above: Performed By: #### C P, CDP #### [address] [place], [facility] Hospitality Aide: Belén Dale MD MCV (RBC) [Entitic vol] 86.3 fL Normal 82.6-102.9 [facility] Comment on above: Performed By: #### C P, CDP #### [facility] [address] [place] [address] Dr. [place], [facility] Hospitality Aide: Belén Dale MD Monocytes (Bld) [#/Vol] 0.37 10*3/uL Normal 0.10-1.20 [facility] Comment on above: Performed By: #### C P, CDP #### [facility] [address] [place] [address] Hospitality Aide: Belén Dale MD Monocytes/100 WBC (Bld) 4 % Normal 3-12 [facility] Comment on above: Performed By: #### C P, CDP #### [facility] [address] [place], [place] [id number] Hospitality Aide: Belén Dale MD Neutrophil (Seg) 76 % High 36-65 [facility] Comment on above: Performed By: #### C P, CDP #### [facility] [address] [place], [place] [address] Hospitality Aide: Belén Dale MD NRBC Automated 0.0 per 100 WBC Normal 0.0 [facility] Comment on above: Performed By: #### C P, CDP #### [facility] [address] [place], [place] [id number] Hospitality Aide: Belén Dale MD Platelet mean volume (Bld) [Entitic vol] 9.4 fL Normal 8.1-13.5 [facility] Comment on above: Performed By: #### C P, CDP #### [address] [place], [place] [id number] Hospitality Aide: Belén Dale MD Platelets (Bld) [#/Vol] 248 10*3/uL Normal 138-453 [facility] Comment on above: Performed By: #### C P, CDP #### [facility] [address] [place] [address] [place] [address] Hospitality Aide: Belén Dale MD RBC (Bld) [#/Vol] 5.34 10*6/uL High 3.95-5.11 [facility] Comment on above: Performed By: #### C P, CDP #### [facility] [address] [place] [address] Hospitality Aide: Belén Dale MD WBC (Bld) [#/Vol] 9.1 10*3/uL Normal 3.5-11.3 [facility] Comment on above: Performed By: #### C P, CDP #### [facility] [address] [place] [address] Hospitality Aide: Belén Dale MD CT ABDOMEN PELVIS WO [...] Tesfaye Tillman MD 01/30/22 Final result Normal [facility] Comp Metabolic Profon 2021 Albumin [Mass/Vol] 4.7 g/dL Normal 3.5-5.2 [facility] Comment on above: Performed By: #### CELESTINA Cam, CDP #### [facility] [address] [place] [address] [place] [address] Hospitality Aide: Belén Dale MD Albumin/Glob Ratio 1.5 Normal 1.0-2.5 [facility] Comment on above: Performed By: #### CELESTINA Cam, CDP #### [address] [place] [address] Hospitality Aide: Belén Dale MD Alkaline Phos 76 U/L Normal 35-104 [facility] Comment on above: Performed By: #### CELESTINA Cam, CDP #### [facility] [address] [place] [address] [place], [place] [id number] Hospitality Aide: Belén Dale MD ALT [Catalytic activity/Vol] 40 U/L High 5-33 [facility] Comment on above: Performed By: #### CELESTINA Cam, CDP #### [facility] [address] [place] [address] [place] [address] Hospitality Aide: Belén Dale MD Anion gap [Moles/Vol] 10 mmol/L Normal 9-17 [facility] Comment on above: Performed By: #### M G, BMPX, CDP #### [facility] [address] [place], [place] [id number] Hospitality Aide: Belén Dale MD AST [Catalytic activity/Vol] 17 U/L Normal <32 [facility] Comment on above: Performed By: #### M G, BMPX, CDP #### [facility] [address] [place], [place] [id number] Hospitality Aide: Belné Dale MD Bilirubin [Mass/Vol] 0.3 mg/dL Normal 0.3-1.2 [facility] Comment on above: Performed By: #### M G, BMPX, CDP #### [facility] [address] [place], [place] [id number] Hospitality Aide: Belén Dale MD BUN/CRE Ratio 10 Normal 9-20 [facility] Comment on above: Performed By: #### M G, BMPX, CDP #### [address] [place], [place] [id number] Hospitality Aide: Belén Dale MD Calcium [Mass/Vol] 10.4 mg/dL Normal 8.6-10.4 [facility] Comment on above: Performed By: #### M Francisca, BMPX, CDP #### [facility] [address] [place], [place] [id number] Hospitality Aide: Belén Dale MD Chloride [Moles/Vol] 105 mmol/L Normal 98-107 [facility] Comment on above: Performed By: #### M G, BMPX, CDP #### [facility] [address] [place] [address] Hospitality Aide: Belén Dale MD CO2 [Moles/Vol] 25 mmol/L Normal 20-31 [facility] Comment on above: Performed By: #### M G, BMPX, CDP #### [facility] [address] [place] [address] Hospitality Aide: Belén Dale MD Creatinine [Mass/Vol] 0.89 mg/dL Normal 0.50-0.90 [facility] Comment on above: Performed By: #### YANIRA CamX, CDP #### [facility] [address] [place] [address] Hospitality Aide: Belén Dale MD GFR/1.73 sq M.predicted among non-blacks MDRD (S/P/Bld) [Vol rate/Area] mL/min/{1.73_m2} Normal >60 [facility] Comment on above: Result Comment: Effective [...] Performed By: #### CELESTINA Cam, CDP #### [address] [place] [address] Hospitality Aide: Belén Dale MD Glucose [Mass/Vol] 125 mg/dL High 70-99 [facility] Comment on above: Performed By: #### CELESTINA Cam, CDP #### [facility] [address] [place] [address] Hospitality Aide: Belén Dale MD Potassium [Moles/Vol] 4.0 mmol/L Normal 3.7-5.3 [facility] Comment on above: Performed By: #### CELESTINA Cam, CDP #### [facility] [address] [place] [address] Hospitality Aide: Belén Dale MD Protein [Mass/Vol] 7.9 g/dL Normal 6.4-8.3 [facility] Comment on above: Performed By: #### M G, BMPX, CDP #### [facility] [address] [place], [place] 6362183 Hospitality Aide: Belén Dale MD Sodium [Moles/Vol] 140 mmol/L Normal 135-144 [facility] Comment on above: Performed By: #### M G, BMPX, CDP #### [facility] [address] [place], [place] [address]83 Hospitality Aide: Belén Dale MD Urea nitrogen [Mass/Vol] 9 mg/dL Normal 6-20 [facility] Comment on above: Performed By: #### M G, BMPX, CDP #### [facility] [address] [place], [place] [phone] Hospitality Aide: Belén Dale MD UA w/Reflex Cultureon 2021 Bilirubin, SemiQt,Ur Negative Normal NEG [facility] Comment on above: Performed By: #### M G, BMPX, CDP #### [facility] [address] [place], [place] [phone] Hospitality Aide: Belén Dale MD Blood, Urine Negative Normal NEG [facility] Comment on above: Performed By: #### M G, BMPX, CDP #### [facility] [address] [place], [place] 2498283 Hospitality Aide: Belén Dale MD Clarity (U) Clear Normal CLEAR [facility] Comment on above: Performed By: #### M G, BMPX, CDP #### [facility] [address] [place], [place] [id number] Hospitality Aide: Belén Dale MD Color (U) Yellow Normal YEL [facility] Comment on above: Performed By: #### M G, BMPX, CDP #### [facility] [address] [place] [address] Hospitality Aide: Belén Dale MD Glucose Ql (U) Negative Normal NEG [facility] Comment on above: Performed By: #### M G, BMPX, CDP #### [facility] [address] [place] [address] Hospitality Aide: Belén Dale MD Ketones Ql (U) Negative Normal NEG [facility] Comment on above: Performed By: #### M G, BMPX, CDP #### [facility] [address] [place] [address] Hospitality Aide: Belén Dale MD Leukocyte esterase Test strip Ql (U) Negative Normal NEG [facility] Comment on above: Performed By: #### M G, BMPX, CDP #### [address] [place] [address] Hospitality Aide: Belén Dale MD Nitrite,Ur Negative Normal [facility] Comment on above: Performed By: #### M G, BMPX, CDP #### [facility] [address] [place] [address] [place] [address] Hospitality Aide: Belén aDle MD PH,Ur 6.0 Normal 5.0-9.0 [facility] Comment on above: Performed By: #### M G, BMPX, CDP #### [address] [place], [place] 59[address]83 Hospitality Aide: Belén Dale MD Protein Ql (U) Negative Normal NEG [facility] Comment on above: Performed By: #### M G, BMPX, CDP #### [facility] [address] [place] [address] Hospitality Aide: Belén Dale MD Spec. Barataria,Ur >1.030 High 1.010-1.02 0 [facility] Comment on above: Performed By: #### M G, BMPX, CDP #### [facility] [address] [place] [address] Hospitality Aide: Belén Dale MD Urobilinogen,Ur Normal Normal NORM [facility] Comment on above: Performed By: #### M G, BMPX, CDP #### [facility] [address] [place], [place] [phone] Hospitality Aide: Belén Dale MD Urinalysis,Microon 2 Epithelial cells LM Ql (Urine sed) 2 TO 5 Normal 0-25 [facility] Comment on above: Performed By: #### M G, BMPX, CDP #### [facility] [address] [place], [place] [phone] Hospitality Aide: Belén Dale MD Mucus Strands 2+ Abnormal NONE [facility] Comment on above: Performed By: #### M G, BMPX, CDP #### [facility] [address] [place], [place] 2359383 Hospitality Aide: Belén Dale MD Urine RBC's 0 TO 2 Normal 0-2 [facility] Comment on above: Performed By: #### Ian Espinosa, BMPX, CDP #### [facility] [address] [place] [address] [place], [place] [phone] Hospitality Aide: Belén Dale MD Urine WBC's 0 TO 2 Normal 0-5 [facility] Comment on above: Performed By: #### M Francisca, BMPX, CDP #### [facility] [address] [place], [place] 5832383 Hospitality Aide: Belén Dale MD Hemoglobin A1Con 01-10-2022 Glucose [Mass/Vol] 117 mg/dL Normal [facility] Comment on above: Result Comment: The ADA and AACC recommend providing the estimated average glucose result to permit better patient understanding of their HBA1c result. Performed By: #### M G, BMPX, CDP #### [facility] [address] [place], [place] [phone] Hospitality Aide: Belén Dale MD HbA1c (Bld) [Mass fraction] 5.7 % Normal 4.0-6.0 [facility] Comment on above: Performed By: #### Ian Espinosa BMPX, CDP #### [facility] [address] [place] [address] [place], [place] [phone] Hospitality Aide: Belén Dale MD CBC with Diffon 01-09-2022 Abs. Basophil <0.03 Normal 0.00-0.20 [facility] Comment on above: Performed By: #### Ian Espinosa BMPX, CDP #### [facility] [address] [place] [address] [place] [address] Hospitality Aide: Belén Dale MD Abs. Eosinophil <0.03 Normal 0.00-0.44 [facility] Comment on above: Performed By: #### Ian Espinosa BMPX, CDP #### [address] [place], [place] [id number] Hospitality Aide: Belén Dale MD Abs.Imm.Granulocyte 0.09 k/uL Normal 0.00-0.30 [facility] Comment on above: Performed By: #### YANIRA CamX, CDP #### [address] [place], [place] [phone] Hospitality Aide: Belén Dale MD Abs.Neutrophil (Seg) 7.77 k/uL Normal 1.50-8.10 [facility] Comment on above: Performed By: #### Ian Espinosa BMPX, CDP #### [facility] [address] [place] [address] [place], [place] [phone] Hospitality Aide: Belén Dale MD Basophils/100 WBC (Bld) 0 % Normal 0-2 [facility] Comment on above: Performed By: #### Ian Espinosa BMPX, CDP #### [address] [place], [place] [phone] Hospitality Aide: Belén Dale MD Eosinophils/100 WBC (Bld) 0 % Low 1-4 [facility] Comment on above: Performed By: #### M G, BMPX, CDP #### [facility] [address] [place], [place] [address] Hospitality Aide: Belén Dale MD Erythrocyte distribution width (RBC) [Ratio] 12.0 % Normal 11.8-14.4 [facility] Comment on above: Performed By: #### M Francisca, BMPX, CDP #### [facility] [address] [place], [place] [address] Hospitality Aide: Belén Dale MD Hematocrit (Bld) [Volume fraction] 37.9 % Normal 36.3-47.1 [facility] Comment on above: Performed By: #### M Francisca, BMPX, CDP #### [address] [place], [facility]83 Hospitality Aide: Belén Dale MD Hemoglobin (Bld) [Mass/Vol] 12.9 g/dL Normal 11.9-15.1 [facility] Comment on above: Performed By: #### M Francisca, BMPX, CDP #### [address] [place], [place] [address] Hospitality Aide: Belén Dale MD Immature granulocytes/100 WBC (Bld) 1 % High 0 [facility] Comment on above: Performed By: #### M Francisca BMPX, CDP #### [address] [place], [facility] Hospitality Aide: Belén Dale MD Lymphocytes (Bld) [#/Vol] 1.35 10*3/uL Normal 1.10-3.70 [facility] Comment on above: Performed By: #### M G, BMPX, CDP #### [facility] [address] [place] [address] Hospitality Aide: Belén Dale MD Lymphocytes/100 WBC (Bld) 14 % Low 24-43 [facility] Comment on above: Performed By: #### M G, BMPX, CDP #### [facility] [address] [place], [facility]83 Hospitality Aide: Belén Dale MD MCH (RBC) [Entitic mass] 29.7 pg Normal 25.2-33.5 [facility] Comment on above: Performed By: #### M Francisca, BMPX, CDP #### [address] [place], [facility] Hospitality Aide: Belén Dale MD MCHC (RBC) [Mass/Vol] 34.0 g/dL Normal 28.4-34.8 [facility] Comment on above: Performed By: #### Ian Espinosa, BMPX, CDP #### [address] [place], [facility] Hospitality Aide: Belén Dale MD MCV (RBC) [Entitic vol] 87.1 fL Normal 82.6-102.9 [facility] Comment on above: Performed By: #### Ian Espinosa BMPX, CDP #### [address] [place], [facility] Hospitality Aide: Belén Dale MD Monocytes (Bld) [#/Vol] 0.40 10*3/uL Normal 0.10-1.20 [facility] Comment on above: Performed By: #### Ian Espinosa BMPX, CDP #### [address] [place], [facility] Hospitality Aide: Belén Dale MD Monocytes/100 WBC (Bld) 4 % Normal 3-12 [facility] Comment on above: Performed By: #### Ian Espinosa BMPX, CDP #### [address] [place], [facility] Hospitality Aide: Belén Dale MD Neutrophil (Seg) 81 % High 36-65 [facility] Comment on above: Performed By: #### Ian Espinosa, BMPX, CDP #### [facility] [address] [place], [place] [id number] Hospitality Aide: Belén Dale MD NRBC Automated 0.0 per 100 WBC Normal 0.0 [facility] Comment on above: Performed By: #### Ian Espinosa BMPX, CDP #### [facility] [address] [place], [place] [phone] Hospitality Aide: Belén Dale MD Platelet mean volume (Bld) [Entitic vol] 9.6 fL Normal 8.1-13.5 [facility] Comment on above: Performed By: #### Ian Espinosa BMPX, CDP #### [address] [place], [place] 785[address]83 Hospitality Aide: Belén Dale MD Platelets (Bld) [#/Vol] 238 10*3/uL Normal 138-453 [facility] Comment on above: Performed By: #### Ian Espinosa BMPX, CDP #### [address] [place] [address] Hospitality Aide: Belén Dale MD RBC (Bld) [#/Vol] 4.35 10*6/uL Normal 3.95-5.11 [facility] Comment on above: Performed By: #### Ian Espinosa BMPX, CDP #### [address] [place], [facility] Hospitality Aide: Belén Dale MD WBC (Bld) [#/Vol] 9.6 10*3/uL Normal 3.5-11.3 [facility] Comment on above: Performed By: #### Ian Espinosa BMPX, CDP #### [address] [place] [address] Hospitality Aide: Belén Dale MD Comp Metabolic Pr/rfx MGon 1 03-12-2021 Albumin [Mass/Vol] 4.2 g/dL Normal 3.5-5.2 [facility] Comment on above: Performed By: #### M G, BMPX, CDP #### [facility] [address] [place], [place] [address]83 Hospitality Aide: Belén Dale MD Albumin/Glob Ratio 1.7 Normal 1.0-2.5 [facility] Comment on above: Performed By: #### M G, BMPX, CDP #### [facility] [address] [place], [place] [address]83 Hospitality Aide: Belén Dale MD Alkaline Phos 70 U/L Normal 35-104 [facility] Comment on above: Performed By: #### M G, BMPX, CDP #### [address] [place], [place] 1574883 Hospitality Aide: Belén Dale MD ALT [Catalytic activity/Vol] 24 U/L Normal 5-33 [facility] Comment on above: Performed By: #### M G, BMPX, CDP #### [address] [place], [place] 6984283 Hospitality Aide: Belén Dale MD Anion gap [Moles/Vol] 13 mmol/L Normal 9-17 [facility] Comment on above: Performed By: #### M G, BMPX, CDP #### [address] [place], [place] 528[address]83 Hospitality Aide: Belén Dale MD AST [Catalytic activity/Vol] 15 U/L Normal <32 [facility] Comment on above: Performed By: #### M G, BMPX, CDP #### [address] [place], [place] 5609183 Hospitality Aide: Belén Dale MD Bilirubin [Mass/Vol] 0.3 mg/dL Normal 0.3-1.2 [facility] Comment on above: Performed By: #### M G, BMPX, CDP #### [facility] [address] [place] [address] [place] [address] Hospitality Aide: Belén Dale MD BUN/CRE Ratio 16 Normal 9-20 [facility] Comment on above: Performed By: #### Ian Espinosa BMPX, CDP #### [facility] [address] [place], [place] [address]28783 Hospitality Aide: Belén Dale MD Calcium [Mass/Vol] 9.0 mg/dL Normal 8.6-10.4 [facility] Comment on above: Performed By: #### Ian Espinosa BMPX, CDP #### [facility] [address] [place], [place] [phone] Hospitality Aide: Belén Dale MD Chloride [Moles/Vol] 105 mmol/L Normal 98-107 [facility] Comment on above: Performed By: #### Ian Espinosa BMPX, CDP #### [facility] [address] [place] [address] Hospitality Aide: Belén Dale MD CO2 [Moles/Vol] 21 mmol/L Normal 20-31 [facility] Comment on above: Performed By: #### Ian Espinosa BMPX, CDP #### [facility] [address] [place] [address] Hospitality Aide: Belén Dale MD Creatinine [Mass/Vol] 0.83 mg/dL Normal 0.50-0.90 [facility] Comment on above: Performed By: #### Ian Espinosa BMPX, CDP #### [facility] [address] [place] [address] Hospitality Aide: Belén Dale MD GFR/1.73 sq M.predicted among non-blacks MDRD (S/P/Bld) [Vol rate/Area] mL/min/{1.73_m2} Normal >60 [facility] Comment on above: Result Comment: Effective [...] affects renal tubular secretion. Performed By: #### Ian Espinosa BMPX, CDP #### [facility] [address] [place] [address] Hospitality Aide: Belén Dale MD Glucose [Mass/Vol] 183 mg/dL High 70-99 [facility] Comment on above: Performed By: #### Ian Espinosa BMPX, CDP #### [facility] [address] [place] [address] Hospitality Aide: Belén Dale MD Potassium [Moles/Vol] 3.7 mmol/L Normal 3.7-5.3 [facility] Comment on above: Performed By: #### YANIRA CamX, CDP #### [facility] [address] [place] [address] Hospitality Aide: Belén Dale MD Protein [Mass/Vol] 6.7 g/dL Normal 6.4-8.3 [facility] Comment on above: Performed By: #### Ian Espinosa BMPX, CDP #### [address] [place] [address] Hospitality Aide: Belén Dale MD Sodium [Moles/Vol] 139 mmol/L Normal 135-144 [facility] Comment on above: Performed By: #### Ian Espinosa BMPX, CDP #### [facility] [address] [place] [address] Hospitality Aide: Belén Dale MD Urea nitrogen [Mass/Vol] 13 mg/dL Normal 6-20 [facility] Comment on above: Performed By: #### Ian Espinosa BMPX, CDP #### [facility] [address] [place], [place] [phone] Hospitality Aide: Belén Dale MD Resp Viral Panelon 2 Adenovirus Detected Abnormal [facility] Comment on above: Performed By: #### M G, BMPX, CDP #### [address] [place] [address] Hospitality Aide: MD Cecil Chand.parapertussis Not detected Normal [facility] Comment on above: Performed By: #### M G, BMPX, CDP #### [address] [place] [address] Hospitality Aide: Belén Dale MD Bordetella pertussis Not detected Normal [facility] Comment on above: Performed By: #### M G, BMPX, CDP #### [address] [place] [address] Hospitality Aide: Belén Dale MD Chlamyd.pneumoniae Not detected Normal [facility] Comment on above: Performed By: #### M G, BMPX, CDP #### [address] [place] [address] Hospitality Aide: Belén Dale MD Coronavirus 229E Not detected Normal [facility] Comment on above: Performed By: #### M G, BMPX, CDP #### [address] [place] [address] Hospitality Aide: Belén Dale MD Coronavirus HKU1 Not detected Normal [facility] Comment on above: Performed By: #### M G, BMPX, CDP #### [address] [place] [address] Hospitality Aide: Belén Dale MD Coronavirus [id number] Not detected Normal [facility] Comment on above: Performed By: #### M G, BMPX, CDP #### [facility] [address] [place] [address] [place] [address] Hospitality Aide: Belén aDle MD Coronavirus OC43 Not detected Normal [facility] Comment on above: Performed By: #### M G, BMPX, CDP #### [facility] [address] [place] [address] Hospitality Aide: Belén Dale MD Human Metapneumo Not detected [facility] Comment on above: Performed By: #### M G, BMPX, CDP #### [facility] [address] [place] [address] Hospitality Aide: Belén Dale MD Influenza A Not detected [facility] Comment on above: Performed By: #### M G, BMPX, CDP #### [facility] [address] [place] [address] [place] [address] Hospitality Aide: Belén Dale MD Influenza B Not detected [facility] Comment on above: Performed By: #### M G, BMPX, CDP #### [address] [place] [address] Hospitality Aide: Belén Dale MD Mycoplas.pneumoniae Not detected [facility] Comment on above: Result Comment: Perf ormed by multiplexed nucleic acid assay. Performed By: #### M G, BMPX, CDP #### [facility] [address] [place] [address] [place] [address] Hospitality Aide: Belén Dale MD Parainfluenza 1 Not detected [facility] Comment on above: Performed By: #### M G, BMPX, CDP #### [facility] [address] [place] [address] [place], [place] [id number] Hospitality Aide: Belén Dale MD Parainfluenza 2 Not detected [facility] Comment on above: Performed By: #### M G, BMPX, CDP #### [facility] [facility] [address] [place] [address] Hospitality Aide: Belén Dale MD Parainfluenza 3 Not detected Normal [facility] Comment on above: Performed By: #### M G, BMPX, CDP #### [facility] [address] [place] [address] Hospitality Aide: Belén Dale MD Parainfluenza 4 Not detected Normal [facility] Comment on above: Performed By: #### M G, BMPX, CDP #### [facility] [address] [place] [address] [place] [address] Hospitality Aide: Belén Dale MD Resp Syncytial Virus Detected Abnormal [facility] Comment on above: Performed By: #### M G, BMPX, CDP #### [address] [place] [address] Hospitality Aide: Belén Dale MD Rhino/Enterovirus Not detected Normal [facility] Comment on above: Performed By: #### M G, BMPX, CDP #### [address] [place] [address] Hospitality Aide: Belén Dale MD SARS-CoV-2 (COVID-19) RNA CHRISTI+probe Ql (Unsp spec) Not detected Normal [facility] Comment on above: Performed By: #### M G, BMPX, CDP #### [facility] [address] [place] [address] [place] [address] Hospitality Aide: Belén Dale MD Basic Metabolic Profon 01-08 Anion gap [Moles/Vol] 16 mmol/L Normal 10-22 [facility] Comment on above: Performed By: #### M G, BMPX, CDP #### [facility] [address] [place], [place] [id number] Hospitality Aide: Belén Dale MD BUN/CRE Ratio 12 Normal 9-20 [facility] Comment on above: Performed By: #### M Francisca BMPX, CDP #### [facility] [address] [place] [address] Hospitality Aide: Belén Dale MD Calcium [Mass/Vol] 9.5 mg/dL Normal 8.6-10.4 [facility] Comment on above: Performed By: #### M Francisca, BMPX, CDP #### [facility] [address] [place] [address] Hospitality Aide: Belén Dale MD Chloride [Moles/Vol] 104 mmol/L Normal 98-107 [facility] Comment on above: Performed By: #### Ian Espinosa BMPX, CDP #### [facility] [address] [place] [address] Hospitality Aide: Belén Dale MD CO2 [Moles/Vol] 20 mmol/L Normal 20-31 [facility] Comment on above: Performed By: #### Ian Espinosa BMPX, CDP #### [facility] [address] [place] [address] Hospitality Aide: Belén Dale MD Creatinine [Mass/Vol] 0.92 mg/dL High 0.50-0.90 [facility] Comment on above: Performed By: #### Ian Espinosa BMPX, CDP #### [facility] [address] [place] [address] Hospitality Aide: Belén Dale MD GFR/1.73 sq M.predicted among non-blacks MDRD (S/P/Bld) [Vol rate/Area] mL/min/{1.73_m2} Normal >60 [facility] Comment on above: Result Comment: Effective [...] Performed By: #### CELESTINA Cam, CDP #### [facility] [address] [place], [place] [address]83 Hospitality Aide: Belén Dale MD Glucose [Mass/Vol] 187 mg/dL High 70-99 [facility] Comment on above: Performed By: #### CELESTINA Cam, CDP #### [address] [place] [address] Hospitality Aide: Belén Dale MD Potassium [Moles/Vol] 3.9 mmol/L Normal 3.7-5.3 [facility] Comment on above: Performed By: #### CELESTINA Cam, CDP #### [address] [place] [address] Hospitality Aide: Belén Dale MD Sodium [Moles/Vol] 140 mmol/L Normal 135-144 [facility] Comment on above: Performed By: #### CELESTINA Cam, CDP #### [address] [place] [address] Hospitality Aide: Belén Dale MD Urea nitrogen [Mass/Vol] 11 mg/dL Normal 6-20 [facility] Comment on above: Performed By: #### CELESTINA Cam, CDP #### [address] [place] [address] Hospitality Aide: Belén Dale MD Brain Natri. Peptideon 01-08 Natriuretic peptide B (Bld) [Mass/Vol] 485 pg/mL High <300 [facility] Comment on above: Result Comment: An age-independent cutoff point of 300 pg/ml has a 98% negative predictive value excluding acute heart failure. Performed By: #### CELESTINA Cam, CDP #### [address] [place], [place] [address]83 Hospitality Aide: Belén Dale MD CBC with Diffon 01-08-2022 Abs. Basophil <0.03 Normal 0.00-0.20 [facility] Comment on above: Performed By: #### M G, BMPX, CDP #### [facility] [address] [place] [address] [place] [address] Hospitality Aide: Belén Dale MD Abs. Eosinophil <0.03 Normal 0.00-0.44 [facility] Comment on above: Performed By: #### M G, BMPX, CDP #### [facility] [address] [place] [address] [place] [place], [place] [phone] Hospitality Aide: Belén Dale MD Abs.Imm.Granulocyte 0.06 k/uL Normal 0.00-0.30 [facility] Comment on above: Performed By: #### M Francisca, BMPX, CDP #### [facility] [address] [place] [address] Dr[place], [facility] Hospitality Aide: Belén Dale MD Abs.Neutrophil (Seg) 9.46 k/uL High 1.50-8.10 [facility] Comment on above: Performed By: #### M G, BMPX, CDP #### [facility] [address] [place] [address] [place] [address] Hospitality Aide: Belén Dale MD Basophils/100 WBC (Bld) 0 % Normal 0-2 [facility] Comment on above: Performed By: #### M G, BMPX, CDP #### [facility] [address] [place], [place] [id number] Hospitality Aide: Belén Dale MD Eosinophils/100 WBC (Bld) 0 % Low 1-4 [facility] Comment on above: Performed By: #### M G, BMPX, CDP #### [facility] [address] [place] [address] [place], [place] [id number] Hospitality Aide: Belén Dale MD Erythrocyte distribution width (RBC) [Ratio] 11.9 % Normal 11.8-14.4 [facility] Comment on above: Performed By: #### Ian Espinosa BMPX, CDP #### [facility] [address] [place], [place] [address]83 Hospitality Aide: Belén Dale MD Hematocrit (Bld) [Volume fraction] 43.8 % Normal 36.3-47.1 [facility] Comment on above: Performed By: #### Ian Espinosa BMPX, CDP #### [facility] [address] [place] [address] Hospitality Aide: Belén Dael MD Hemoglobin (Bld) [Mass/Vol] 14.6 g/dL Normal 11.9-15.1 [facility] Comment on above: Performed By: #### CELESTINA Cam, CDP #### [address] [place], [place] 3197183 Hospitality Aide: Belén Dale MD Immature granulocytes/100 WBC (Bld) 1 % High 0 [facility] Comment on above: Performed By: #### CELESTINA Cam, CDP #### [address] [place], [place] [address]83 Hospitality Aide: Belén Dale MD Lymphocytes (Bld) [#/Vol] 0.78 10*3/uL Low 1.10-3.70 [facility] Comment on above: Performed By: #### Ian Espinosa BMPX, CDP #### [facility] [address] [place], [place] [address] Hospitality Aide: Belén Dale MD Lymphocytes/100 WBC (Bld) 7 % Low 24-43 [facility] Comment on above: Performed By: #### Ian Espinosa BMPX, CDP #### [facility] [address] [place], [place] 8908183 Hospitality Aide: Belén Dale MD MCH (RBC) [Entitic mass] 29.6 pg Normal 25.2-33.5 [facility] Comment on above: Performed By: #### YANIRA CamX, CDP #### [facility] [address] [place], [place] [address]83 Hospitality Aide: Belén Dale MD MCHC (RBC) [Mass/Vol] 33.3 g/dL Normal 28.4-34.8 [facility] Comment on above: Performed By: #### Ian Espinosa BMPX, CDP #### [facility] [address] [place] [address] Hospitality Aide: Belén Dale MD MCV (RBC) [Entitic vol] 88.7 fL Normal 82.6-102.9 [facility] Comment on above: Performed By: #### YANIRA CamX, CDP #### [address] [place], [place] [address] Hospitality Aide: Belén Dale MD Monocytes (Bld) [#/Vol] 0.19 10*3/uL Normal 0.10-1.20 [facility] Comment on above: Performed By: #### CELESTINA Cam, CDP #### [address] [place], [place] 3785383 Hospitality Aide: Belén Dale MD Monocytes/100 WBC (Bld) 2 % Low 3-12 [facility] Comment on above: Performed By: #### YANIRA CamX, CDP #### [address] [place] [address] Hospitality Aide: Belén Dale MD Neutrophil (Seg) 90 % High 36-65 [facility] Comment on above: Performed By: #### Ian Espinosa BMPX, CDP #### [facility] [address] [place], [place] [address]47[address]83 Hospitality Aide: Belén Dale MD NRBC Automated 0.0 per 100 WBC Normal 0.0 [facility] Comment on above: Performed By: #### Ian Espinosa BMPX, CDP #### [address] [place], [facility]83 Hospitality Aide: Belén Dale MD Platelet mean volume (Bld) [Entitic vol] 9.6 fL Normal 8.1-13.5 [facility] Comment on above: Performed By: #### Ian Espinosa BMPX, CDP #### [address] [place], [facility]83 Hospitality Aide: Belén Dale MD Platelets (Bld) [#/Vol] 254 10*3/uL Normal 138-453 [facility] Comment on above: Performed By: #### Ian Espinosa BMPX, CDP #### [address] [place], [place] 112[address]83 Hospitality Aide: Belén Dale MD RBC (Bld) [#/Vol] 4.94 10*6/uL Normal 3.95-5.11 [facility] Comment on above: Performed By: #### CELESTINA Cam, CDP #### [address] [place], [place] [address]278983 Hospitality Aide: Belén Dale MD WBC (Bld) [#/Vol] 10.5 10*3/uL Normal 3.5-11.3 [facility] Comment on above: Performed By: #### YANIRA CamX, CDP #### [address] [place], [facility]83 Hospitality Aide: Belén Dale MD CT SOFT TISSUE NECK [...] Justin Hatfield MD 01/08/22 Final result Normal [facility] D-Dimer Teston 01-08-2022 D-Dimer Test 0.46 mg/L FEU Normal 0.00-0.59 [facility] Comment on above: Result Comment: When [...] Performed By: #### CELESTINA Cam, CDP #### [facility] [address] [place] [address] [place], [place] [phone] Hospitality Aide: Belén Dale MD Resp Viral Panelon Source: .NASOPHARYNGEAL SWAB Normal [facility] Comment on above: Performed By: #### CELESTINA Cam, CDP #### [address] [place], [place] [phone] Hospitality Aide: Belén Dale MD TSH w/reflex to FT4on 2021 Thyroid Stim. Horm. 0.07 uIU/mL Low 0.30-5.00 [facility] Comment on above: Performed By: #### CELESTINA Cam CDP #### [address] [place], [place] [phone] Hospitality Aide: Belén Dale MD Thyroxine, Freeon 01-08-2022 Thyroxine, Free 1.35 ng/dL Normal 0.93-1.70 [facility] Comment on above: Performed By: #### CELESTINA Cam, CDP #### [facility] [address] [place] [address] [place] [address] Hospitality Aide: Belén Dale MD Troponinon 01-08-2022 Troponin, High Sens <6 Normal 0-14 [facility] Comment on above: Result Comment: High Sensitivity Troponin values cannot be compared with other Troponin methodologies. Patients with high levels of Biotin oral intake (i.e >5mg/day) may have falsely decreased Troponin levels. Samples collected within 8 hours of biotin intake may require additional information for diagnosis. Performed By: #### M G, BMPX, CDP #### [facility] [address] [place], [place] [phone] Hospitality Aide: Belén Dale MD Venous Blood Gaseson 022 Body Temp. 37.0 [facility] Comment on above: Performed By: #### M Francisca, BMPX, CDP #### [facility] [address] [place], [place] [address]83 Hospitality Aide: Belén Dale MD HCO3 (Bld) [Moles/Vol] 15.8 mmol/L Low 24.0-30.0 [facility] Comment on above: Performed By: #### Ian Espinosa BMPX, CDP #### [address] [place], [place] [phone] Hospitality Aide: Belén Dale MD Negative Base Excess 5.2 mmol/L High 0.0-2.0 [facility] Comment on above: Performed By: #### Ian Espinosa BMPX, CDP #### [address] [place], [place] [address]83 Hospitality Aide: Belén Dale MD O2 Device/Flow/% ROOM AIR Normal [facility] Comment on above: Performed By: #### M Francisca BMPX, CDP #### [facility] [address] [place], [place] [address]83 Hospitality Aide: Belén Dale MD Oxygen saturation in Blood 94.9 % High 60.0-85.0 [facility] Comment on above: Performed By: #### M Francisca BMPX, CDP #### [facility] [address] [place], [place] [address]69283 Hospitality Aide: Belén Dale MD pCO2 21.7 mm Hg Low 39-55 [facility] Comment on above: Performed By: #### M Francisca, BMPX, CDP #### [facility] [address] [place], [place] [address]32[address] Hospitality Aide: Belén Dale MD pH (Bld) 7.481 [pH] High 7.32-7.42 [facility] Comment on above: Performed By: #### M G, BMPX, CDP #### [facility] [address] [place], [place] [address]83 Hospitality Aide: Belén Dale MD pO2 66.6 mm Hg High 30.0-50.0 [facility] Comment on above: Performed By: #### M G, BMPX, CDP #### [facility] [address] [place] [address] Hospitality Aide: Belén Dale MD Pt. Position [facility] Comment on above: Performed By: #### M Francisca, BMPX, CDP #### [facility] [address] [place], [place] [address]83 Hospitality Aide: Belén Dale MD Respiratory rate 31 /min Normal [facility] Comment on above: Performed By: #### M Francisca BMPX, CDP #### [facility] [address] [place] [address] Hospitality Aide: Belén Dale MD XR CHEST PORTABLEon 01-09-20 [...] Antelmo Ramírez MD 01/08/22 Final result Normal [facility] Basic Metab w/rfx MGon 01-07 Potassium [Moles/Vol] 3.1 mmol/L Low 3.7-5.3 [facility] Comment on above: Performed By: #### M G BMPX, CDP #### [facility] [address] [place], [place] 2888283 Hospitality Aide: Belén Dale MD Anion gap [Moles/Vol] 14 mmol/L Normal 9-17 [facility] Comment on above: Performed By: #### M G, BMPX, CDP #### [facility] [address] [place], [place] [address]23383 Hospitality Aide: Belén Dale MD BUN/CRE Ratio 9 Normal 9-20 [facility] Comment on above: Performed By: #### M G, BMPX, CDP #### [facility] [address] [place], [place] [phone] Hospitality Aide: Belén Dale MD Calcium [Mass/Vol] 9.2 mg/dL Normal 8.6-10.4 [facility] Comment on above: Performed By: #### M G, BMPX, CDP #### [facility] [address] [place], [place] [address]83 Hospitality Aide: Belén Dale MD Chloride [Moles/Vol] 103 mmol/L Normal 98-107 [facility] Comment on above: Performed By: #### M G, BMPX, CDP #### [facility] [address] [place], [place] [address]83 Hospitality Aide: Belén Dale MD CO2 [Moles/Vol] 20 mmol/L Normal 20-31 [facility] Comment on above: Performed By: #### M G, BMPX, CDP #### [facility] [address] [place], [place] 117[address]683 Hospitality Aide: Belén Dale MD Creatinine [Mass/Vol] 0.95 mg/dL High 0.50-0.90 [facility] Comment on above: Performed By: #### M G, BMPX, CDP #### [facility] [address] [place], [place] [address]28[address]83 Hospitality Aide: Belén Dale MD GFR/1.73 sq M.predicted among non-blacks MDRD (S/P/Bld) [Vol rate/Area] mL/min/{1.73_m2} Normal >60 [facility] Comment on above: Result Comment: Effective [...] Performed By: #### CELESTINA Cam, CDP #### [address] [place] [address] Hospitality Aide: Belén Dale MD Glucose [Mass/Vol] 180 mg/dL High 70-99 [facility] Comment on above: Performed By: #### CELESTINA Cam, CDP #### [address] [place] [address] Hospitality Aide: Belén Dale MD Sodium [Moles/Vol] 137 mmol/L Normal 135-144 [facility] Comment on above: Performed By: #### Ian Espinosa BMPX, CDP #### [address] [place] [address] Hospitality Aide: Belén Dale MD Urea nitrogen [Mass/Vol] 9 mg/dL Normal 6-20 [facility] Comment on above: Performed By: #### Ian Espinosa BMPX, CDP #### [address] [place] [address] Hospitality Aide: Belén Dale MD CBC with Diffon 01-07-2022 Abs. Basophil <0.03 Normal 0.00-0.20 [facility] Comment on above: Performed By: #### Ian Espinosa BMPX, CDP #### [address] [place] [address] Hospitality Aide: Belén Dale MD Abs.Imm.Granulocyte <0.03 Normal 0.00-0.30 [facility] Comment on above: Performed By: #### M Francisca, BMPX, CDP #### [address] [place] [address] Hospitality Aide: Belén Dale MD Abs.Neutrophil (Seg) 3.22 k/uL Normal 1.50-8.10 [facility] Comment on above: Performed By: #### M Francisca, BMPX, CDP #### [address] [place] [address] Hospitality Aide: Belén Dale MD Basophils/100 WBC (Bld) 0 % Normal 0-2 [facility] Comment on above: Performed By: #### Ian Espinosa BMPX, CDP #### [address] [place], [place] [address] Hospitality Aide: Belén Dale MD Eosinophils (Bld) [#/Vol] 0.12 10*3/uL Normal 0.00-0.44 [facility] Comment on above: Performed By: #### Ian Espinosa BMPX, CDP #### [address] [place] [address] Hospitality Aide: Belén Dale MD Eosinophils/100 WBC (Bld) 3 % Normal 1-4 [facility] Comment on above: Performed By: #### M G, BMPX, CDP #### [address] [place], [place] [address] Hospitality Aide: Belén Dale MD Erythrocyte distribution width (RBC) [Ratio] 11.7 % Low 11.8-14.4 [facility] Comment on above: Performed By: #### M Francisca, BMPX, CDP #### [address] [place] [address] Hospitality Aide: Belén Dale MD Hematocrit (Bld) [Volume fraction] 41.1 % Normal 36.3-47.1 [facility] Comment on above: Performed By: #### Ian Espinosa BMPX, CDP #### [facility] [address] [place], [place] [address]254683 Hospitality Aide: Belén Dale MD Hemoglobin (Bld) [Mass/Vol] 14.1 g/dL Normal 11.9-15.1 [facility] Comment on above: Performed By: #### Ian Espinosa, BMPX, CDP #### [facility] [address] [place], [place] [address]83 Hospitality Aide: Belén Dale MD Immature granulocytes/100 WBC (Bld) 0 % Normal 0 [facility] Comment on above: Performed By: #### Ian Espinosa BMPX, CDP #### [address] [place], [facility]83 Hospitality Aide: Belén Dale MD Lymphocytes (Bld) [#/Vol] 1.14 10*3/uL Normal 1.10-3.70 [facility] Comment on above: Performed By: #### Ian Espinosa BMPX, CDP #### [address] [place], [place] 1394883 Hospitality Aide: Belén Dale MD Lymphocytes/100 WBC (Bld) 23 % Low 24-43 [facility] Comment on above: Performed By: #### Ian Espinosa BMPX, CDP #### [facility] [address] [place] [address] [place], [place] [phone] Hospitality Aide: Belén Dale MD MCH (RBC) [Entitic mass] 29.8 pg Normal 25.2-33.5 [facility] Comment on above: Performed By: #### Ian Espinosa, BMPX, CDP #### [facility] [address] [place], [place] [address]83 Hospitality Aide: Belén Dale MD MCHC (RBC) [Mass/Vol] 34.3 g/dL Normal 28.4-34.8 [facility] Comment on above: Performed By: #### CELESTINA Cam, CDP #### [address] [place], [place] [address]83 Hospitality Aide: Belén Dale MD MCV (RBC) [Entitic vol] 86.9 fL Normal 82.6-102.9 [facility] Comment on above: Performed By: #### Ian Espinosa BMPX, CDP #### [address] [place], [place] [address]83 Hospitality Aide: Belén Dale MD Monocytes (Bld) [#/Vol] 0.36 10*3/uL Normal 0.10-1.20 [facility] Comment on above: Performed By: #### CELESTINA Cam, CDP #### [address] [place], [place] [address]83 Hospitality Aide: Belén Dale MD Monocytes/100 WBC (Bld) 7 % Normal 3-12 [facility] Comment on above: Performed By: #### CELESTINA Cam, CDP #### [address] [place], [place] [address]383 Hospitality Aide: Belén Dale MD Neutrophil (Seg) 67 % High 36-65 [facility] Comment on above: Performed By: #### CELESITNA Cam, CDP #### [address] [place], [place] [address]83 Hospitality Aide: Belén Dale MD NRBC Automated 0.0 per 100 WBC Normal 0.0 [facility] Comment on above: Performed By: #### CELESTINA Cam, CDP #### [address] [place], [place] [address]32183 Hospitality Aide: Belén Dale MD Platelet mean volume (Bld) [Entitic vol] 9.5 fL Normal 8.1-13.5 [facility] Comment on above: Performed By: #### Ian Espinosa, BMPX, CDP #### [facility] [address] [place] [address] [place] [address] Hospitality Aide: Belén Dale MD Platelets (Bld) [#/Vol] 180 10*3/uL Normal 138-453 [facility] Comment on above: Performed By: #### Ian Espinosa BMPX, CDP #### [address] [place] [address] Hospitality Aide: Belén Dale MD RBC (Bld) [#/Vol] 4.73 10*6/uL Normal 3.95-5.11 [facility] Comment on above: Performed By: #### Ian Espinosa BMPX, CDP #### [address] [place] [address] Hospitality Aide: Belén Dale MD WBC (Bld) [#/Vol] 4.9 10*3/uL Normal 3.5-11.3 [facility] Comment on above: Performed By: #### CELESTINA Cam, CDP #### [address] [place], [place] [address]83 Hospitality Aide: Belén Dale MD Flu A/B Ag Detectionon 01-07 Flu A Ag Detection Negative Normal NEG [facility] Comment on above: Result Comment: for Influenza A Antigen Performed By: #### Ian Espinosa BMPX, CDP #### [address] [place], [place] [address]15783 Hospitality Aide: Belén Dale MD Flu B Ag Detection Negative Normal NEG [facility] Comment on above: Result Comment: for Influenza B Antigen. Performed By: #### Ian Espinosa BMPX, CDP #### [address] [place], [place] [address]83 Hospitality Aide: Belén Dale MD Magnesiumon 01-07-2022 Magnesium [Mass/Vol] 1.8 mg/dL Normal 1.6-2.6 [facility] Comment on above: Performed By: #### M CELESTINA Espinosa, CDP #### [facility] [address] [place] [address] Hospitality Aide: Belén Dale MD [id number] 01-07-2022 SARS-CoV-2 (COVID-19) RNA CHRISTI+probe Ql (Unsp spec) Not detected Normal NOTDET [facility] Comment on above: Result Comment: Rapid [...] management decisions. Fact sheet for Healthcare Providers: https://www.fda.gov/media/199042/download Fact sheet for Patients: https://www.fda.gov/media/583253/download Methodology: Isothermal Nucleic Acid Amplification Performed By: #### C OVRB #### [facility] [address] [place] [address] Hospitality Aide: Belén Dale MD XR CHEST PORTABLEon 01-08-20 22 XR CHEST PORTABLE EXAMINATION: ONE XRAY VIEW [...] Vania Rodríguez MD 01/07/22 Final result Normal [facility] XR NECK SOFT TISSUEon 2021 XR [...] Susy Martin MD 01/07/22 Final result Normal [facility] US KIDNEYSon 12-26-2021 US KIDNEYS EXAMINATION: US KIDN EYS HISTORY: [place] hematuria COMPARISON: 10/20/2020, 11/14/2021 [...] by: BELÉN ANDRADE Date: 2021-12-26 07:[address] [facility] CNPTerri 12-20-2021 CNPN Telephone (GMINE) LEANA TRAN ([id number]) 1985 F Date Time Provider Department 12/20/21 JUAN RAMON DODD During your visit today, we recorded the following information about you: CARINE Carrillo 12/20/2021 10:40 AM Signed Results left on patient voicemail. Leana Tran's bleeding disorders panel through [email or web address] was non-diagnostic or negative for a pathogenic variant. 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 This is a common polymorphism in the general population present in ~10% of individuals of white ancestry and ~1/3 of those of South ancestry. This polymorphism is not expected to contribute to disease risk for the patient. Please see USDS message for further discussion. 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 Fuentes Craig Allergies [...] of pituit (more content not included)... Normal [facility] CBC AUTO DIFFon 12-12-2021 BASO # 0.0 103/ul Normal 0.0-0.1 [facility] Comment on above: Performed By: #### C MP #### [facility] [address] [place] [address] Dr. Nilton Mccall Basophils/100 WBC (Bld) 0.5 % Normal 0.2-2.0 [facility] Comment on above: Performed By: #### C MP #### [facility] [address] [place] [address] Dr. Nilton Mccall EO # 0.2 103/ul Normal 0.0-0.7 [facility] Comment on above: Performed By: #### C MP #### [facility] [address] [place] [address] Dr. Nilton Mccall Eosinophils/100 WBC (Bld) 3.2 % Normal 0.9-7.0 [facility] Comment on above: Performed By: #### C MP #### [facility] [address] [place] [address] Dr. Nilton Mccall Erythrocyte distribution width (RBC) [Ratio] 11.9 % Normal 11.0-15.0 [facility] Comment on above: Performed By: #### C MP #### [facility] [address] [place] [address] Dr. Nilton Mccall Hematocrit (Bld) [Volume fraction] 42.8 % Normal 36.0-48.0 [facility] Comment on above: Performed By: #### C MP #### [facility] [address] [place] [address] Dr. Nilton Mccall Hemoglobin (Bld) [Mass/Vol] 14.4 g/dL Normal 12.0-16.0 [facility] Comment on above: Performed By: #### C MP #### [facility] [address] [place] [address] Dr. Nilton Mccall IG # 0.02 10e3/ul Normal 0.00-0.03 [facility] Comment on above: Performed By: #### C MP #### [facility] [address] [place] [address] Dr. Nilton Mccall IG % 0.3 % Normal 0.0-0.5 [facility] Comment on above: Performed By: #### C MP #### [facility] [address] [place] [address] Dr. Nilton cMcall LYMPH # 1.4 103/ul Normal 1.2-3.8 [facility] Comment on above: Performed By: #### C MP #### [facility] [address] [place] [address] Dr. Nilton Mccall Lymphocytes/100 WBC (Bld) 22.3 % Normal 20.5-60.0 [facility] Comment on above: Performed By: #### C MP #### [facility] [address] [place] [address] Dr. Nilton Mccall MANUAL DIFF REQ NO Normal [facility] Comment on above: Performed By: #### C MP #### [facility] [address] [place] [address] Dr. Nilton Mccall MCH (RBC) [Entitic mass] 28.9 pg Normal 26.7-34.0 [facility] Comment on above: Performed By: #### C MP #### [facility] [address] [place] [address] Dr. Nilton Mccall MCHC (RBC) [Mass/Vol] 33.6 g/dL Normal 29.9-35.2 [facility] Comment on above: Performed By: #### C MP #### [facility] [address] [place] [address] Dr. Nilton Mccall MCV (RBC) [Entitic vol] 85.9 fL Normal 81.0-99.0 [facility] Comment on above: Performed By: #### C MP #### [facility] [address] [place] [address] Dr. Nilton Mccall MONO # 0.3 103/ul Normal 0.3-0.8 [facility] Comment on above: Performed By: #### C MP #### [facility] [address] [place] [address] Dr. Nilton Mccall Monocytes/100 WBC (Bld) 4.9 % Normal 1.7-12.0 [facility] Comment on above: Performed By: #### C MP #### [facility] [address] [place] [address] Dr. Nilton Mccall NEUT # 4.4 103/ul Normal 1.4-6.5 [facility] Comment on above: Performed By: #### C MP #### [facility] [address] [address] [address] Nilton Mccall Neutrophils/100 WBC (Bld) 68.8 % Normal 43.0-75.0 [facility] Comment on above: Performed By: #### C MP #### [facility] [address] [address] [address] Nilton Mccall Platelet mean volume (Bld) [Entitic vol] 9.9 fL Normal 9.5-13.5 [facility] Comment on above: Performed By: #### C MP #### [facility] [address] [place] [address] Dr. Nilton Mccall PLT 237 103/ul Normal 150-450 [facility] Comment on above: Performed By: #### C MP #### [facility] [address] [place] [address] Dr. Nilton Mccall RBC 4.98 106/ul Normal 4.20-5.40 [facility] Comment on above: Performed By: #### C MP #### [facility] [address] [address] [address] Nilton Mccall WBC 6.3 103/ul Normal 4.0-11.0 [facility] Comment on above: Performed By: #### C MP #### [facility] [address] [place] [address] Dr. Nilton Mccall GLYCOHEMOGLOBIN A1Con 2021 ADA RECOMMENDATION SEE BELOW Normal [facility] Comment on above: Result Comment: ADA RECOMMENDED LIMIT 4.0 - 6.0 ADA THERAPEUTIC TARGET < 7.0 ACTION SUGGESTED > 7.0 Performed By: #### P T, PTT #### [facility] [address] [place] [address] Dr. Nilton Mccall Glucose [Mass/Vol] 120 mg/dL Normal [facility] Comment on above: Performed By: #### P T, PTT #### [facility] [address] [place] [address] Dr. Nilton Mccall HbA1c (Bld) [Mass fraction] 5.8 % Normal 4.5-6.2 [facility] Comment on above: Performed By: #### P T, PTT #### [facility] [address] [address] [address] Nilton Mccall LIPID PROFILEon 12-12-2021 CHOL-HDL RATIO NORM SEE BELOW Normal [facility] Comment on above: Result Comment: 3.3 - 4.4 LOW RISK 4.4 - 7.1 AVERAGE RISK 7.1 - 11.0 MODERATE RISK >11.0 HIGH RISK Performed By: #### P T, PTT #### [facility] [address] [address] [address] Nilton Mccall Cholesterol [Mass/Vol] 225 mg/dL Critically high <=200 [facility] Comment on above: Performed By: #### P T, PTT #### [facility] [address] [address] [address] Nilton Mccall Cholesterol in HDL [Mass/Vol] 32 mg/dL Critically low 40-60 [facility] Comment on above: Performed By: #### P T, PTT #### [facility] [address] [address] [address] Nilton Mccall Cholesterol in LDL [Mass/Vol] 132.8 mg/dL Normal [facility] Comment on above: Performed By: #### P T, PTT #### [facility] [address] [address] [address] Nilton Mccall Cholesterol.total/Ch olesterol in HDL [Mass ratio] 7.0 {ratio} Normal [facility] Comment on above: Performed By: #### P T, PTT #### [facility] [address] [address] [address] Nilton Mccall HDL NORMAL > or = 60 mg/dl - LO W CARDIOVASCULAR RISK <40 mg/dl - HIGH CARDIOVASCULAR RISK Normal [facility] Comment on above: Performed By: #### P T, PTT #### [facility] [address] [address] [address] Nilton Mccall LDL CALC NORMAL SEE BELOW Normal [facility] Comment on above: Result Comment: <100 mg/dl OPTIMAL 100 - 129 mg/dl NEAR OR ABOVE OPTIMAL 130 - 159 mg/dl BORDERLINE HIGH 160 - 189 mg/dl HIGH >190 mg/dl VERY HIGH Performed By: #### P T, PTT #### [facility] [address] [place] [address] Dr. Nilton Mccall Triglyceride [Mass/Vol] 301 mg/dL Critically high <=150 [facility] Comment on above: Performed By: #### P T, PTT #### [facility] [address] [place] [address] Dr. Nilton Mccall VLDL CALC 60.2 mg/dL Normal [facility] Comment on above: Performed By: #### P T, PTT #### [facility] [address] [place] [address] Dr. Nilton Mccall LIVER PROFILEon 12-12-2021 Albumin [Mass/Vol] 4.0 g/dL Normal 3.4-5.0 [facility] Comment on above: Performed By: #### P T, PTT #### [facility] [address] [place] [address] Dr. Nilton Mccall Albumin/Globulin [Mass ratio] 1.1 {ratio} Normal [facility] Comment on above: Performed By: #### P T, PTT #### [facility] [address] [place] [address] Dr. Nilton Mccall ALP [Catalytic activity/Vol] 70 U/L Normal 46-116 [facility] Comment on above: Performed By: #### P T, PTT #### [facility] [address] [place] [address] Dr. Nilton Mccall ALT [Catalytic activity/Vol] 30 U/L Normal 14-59 [facility] Comment on above: Performed By: #### P T, PTT #### [facility] [address] [place] [address] Dr. Nilton Mccall AST [Catalytic activity/Vol] 15 U/L Normal 15-37 [facility] Comment on above: Performed By: #### P T, PTT #### [facility] [address] [place] [address] Dr. Nilton Mccall BILI, CONJUGATED 0.1 mg/dL Normal 0.0-0.[address] [facility] Comment on above: Performed By: #### P T, PTT #### [facility] [address] [place] [address] Dr. Nilton Mccall Bilirubin [Mass/Vol] 0.3 mg/dL Normal 0.2-1.0 [facility] Comment on above: Performed By: #### P T, PTT #### [facility] [address] [place] [address] Dr. Nilton Mccall Globulin (S) [Mass/Vol] 3.5 g/dL Normal [facility] Comment on above: Performed By: #### P T, PTT #### [facility] [address] [place] [address] Dr. Nilton Mccall Protein [Mass/Vol] 7.5 g/dL Normal 6.4-8.2 [facility] Comment on above: Performed By: #### P T, PTT #### [facility] [address] [place] [address] Dr. Nilton Mccall PROF CHEM 8 (BAS METB)on Anion gap [Moles/Vol] 7.2 mmol/L Normal [facility] Comment on above: Performed By: #### P T, PTT #### [facility] [address] [place] [address] Dr. Nilton Mccall Calcium [Mass/Vol] 9.1 mg/dL Normal 8.5-10.1 [facility] Comment on above: Performed By: #### P T, PTT #### [facility] [address] [place] [address] Dr. Nilton Mccall Chloride [Moles/Vol] 104 mmol/L Normal 98-107 [facility] Comment on above: Performed By: #### P T, PTT #### [facility] [address] [place] [address] Dr. Nilton Mccall CO2 [Moles/Vol] 29.7 mmol/L Normal 21.0-32.[address] [facility] Comment on above: Performed By: #### P T, PTT #### [facility] [address] [address] [address] Nilton Mccall Creatinine [Mass/Vol] 0.97 mg/dL Normal 0.55-1.02 [facility] Comment on above: Performed By: #### P T, PTT #### [facility] [address] [address] [address] Nilton Mccall EGFR-AF [place]IZ[place] >60 Normal >=[address] [facility] Comment on above: Performed By: #### P T, PTT #### [facility] [address] [address] [address] Nilton Mccall EGFR-NON AF CITIZEN OF [place] >60 Normal >=60 [facility] Comment on above: Performed By: #### P T, PTT #### [facility] [address] [place] [address] Dr. Nilton Mccall Glucose [Mass/Vol] 92 mg/dL Normal 74-106 [facility] Comment on above: Performed By: #### P T, PTT #### [facility] [address] [place] [address] Dr. Nilton Mccall Potassium [Moles/Vol] 3.9 mmol/L Normal 3.5-5.1 [facility] Comment on above: Performed By: #### P T, PTT #### [facility] [address] [place] [address] Dr. Nilton Mccall Sodium [Moles/Vol] 137 mmol/L Normal 136-145 [facility] Comment on above: Performed By: #### P T, PTT #### [facility] [address] [place] [address] Dr. Nilton Mccall Urea nitrogen [Mass/Vol] 14.0 mg/dL Normal 7.0-18.0 [facility] Comment on above: Performed By: #### P T, PTT #### [facility] [address] [place] [address] Dr. Nilton Mccall Urea nitrogen/Creatinine [Mass ratio] 14.4 mg/mg Normal [facility] Comment on above: Performed By: #### P T, PTT #### [facility] [address] [place] [address] Dr. Nilton Mccall TSHon 12-12-2021 TSH 0.340 uIU/mL Critically low 0.358-3.[address] [facility] Comment on above: Performed By: #### P T, PTT #### [facility] [address] [address] [address] Nilton Mccall VITAMIN D 25 OHon 12-12-2021 VIT D 25-OH 44.3 ng/mL Normal [facility] Comment on above: Performed By: #### P T, PTT #### [facility] [address] [address] [address] Nilton Mccall VIT D RANGES SEE BELOW Normal [facility] Comment on above: Result Comment: <20 ng/mL Vit D deficient 20 - <30 ng/mL Vit D insufficient 30 - 100 ng/mL Vit D sufficient >100 ng/mL Potential Toxicity Performed By: #### P T, PTT #### [facility] [address] [address] [address] Nilton Mccall CNOVon 12-02-2021 CNOV Office Visit (SYNCMN ) LEANA TRAN ([id number]) 1985 F Date Time Provider Department 12/02/21 [...] [I95.1] Symptomatic bradycardia [R00.1] Order(s):SALINE LOCK DISCONTINUE [[id number]] Order #: [id number]: 1 INTERMITTENT PERIPHERAL DEVICE ([place], [place]) [[id number]] Order #: [id number]: 1 Prescriptions as of 12/02/2021 - arformoterol [...] 50 mg (more content not included)... Normal [facility] 12-01-2021 CNPN Telephone (CARDMN) LEANA TRAN ([id number]) 1985 F Date Time Provider Department 12/01/21 [...] Physical deconditioning (more content not included)... Normal [facility] CNOVSPon 11-18-2021 CNOVSP Visit (SP) Office (H EMASA) LEANA TRAN ([id number]) 1985 F Date Time Provider Department 11/18/21 1:45 PM FUENTES AMARAL During your visit today, we recorded the following information about you: Temperature Pulse Respiration Blood pressure 97.8 degrees 66/minute 16/minute 121/73 Weight Height 101.2 kg 1.626 m Fuentes Amaral MD 11/19/2021 8:33 AM Signed HEMATOLOGY FOLLOW UP November 18, 2021 (Yves) Some elements in this clinic note that are critical to medical decision making have been carefully reviewed and included from a prior clinic note dated: November 10, 2021 (Yves) AND November 03, 2021 (Yves) PCP and other physicians involved in patient's [...] breast ch (more content not included)... Normal [facility] CULTURE URINEon 11-18-2021 CULTURE URINE Culture Observations : HEAVY GROWTH OF MIXED GENITAL CHANCE. NO POTENTIAL PATHOGENS SEEN. Normal [facility] Comment on above: Performed By: #### P T, PTT #### [facility] [address] [address] [address] 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 Normal [facility] LEANA TRAN ([id number]) 1985 F Date Time Provider Department 11/15/21 [facility] During your [...] reaction to (more content not included)... Normal [facility] CBC AUTO DIFFon 11-14-2021 BASO # 0.0 103/ul Normal 0.0-0.1 [facility] Comment on above: Performed By: #### P T, PTT #### [facility] [address] [place] [address] Dr. Nilton Mccall Basophils/100 WBC (Bld) 0.6 % Normal 0.2-2.0 [facility] Comment on above: Performed By: #### P T, PTT #### [facility] [address] [place] [address] Dr. Nilton Mccall EO # 0.2 103/ul Normal 0.0-0.7 [facility] Comment on above: Performed By: #### P T, PTT #### [facility] [address] [place] [address] Dr. Nilton Mccall Eosinophils/100 WBC (Bld) 2.6 % Normal 0.9-7.0 [facility] Comment on above: Performed By: #### P T, PTT #### [facility] [address] [place] [address] Dr. Nilton Mccall Erythrocyte distribution width (RBC) [Ratio] 11.9 % Normal 11.0-15.0 [facility] Comment on above: Performed By: #### P T, PTT #### [facility] [address] [place] [address] Dr. Nilton Mccall Hematocrit (Bld) [Volume fraction] 39.7 % Normal 36.0-48.0 [facility] Comment on above: Performed By: #### P T, PTT #### [facility] [address] [place] [address] Dr. Nilton Mccall Hemoglobin (Bld) [Mass/Vol] 13.8 g/dL Normal 12.0-16.0 [facility] Comment on above: Performed By: #### P T, PTT #### [facility] [address] [place] [address] Dr. Nilton Mccall IG # 0.03 10e3/ul Normal 0.00-0.03 [facility] Comment on above: Performed By: #### P T, PTT #### [facility] [address] [place] [address] Dr. Nilton Mccall IG % 0.5 % Normal 0.0-0.5 [facility] Comment on above: Performed By: #### P T, PTT #### [facility] [address] [place] [address] Dr. Nilton Mccall LYMPH # 1.7 103/ul Normal 1.2-3.8 [facility] Comment on above: Performed By: #### P T, PTT #### [facility] [address] [place] [address] Dr. Nilton Mccall Lymphocytes/100 WBC (Bld) 26.0 % Normal 20.5-60.0 [facility] Comment on above: Performed By: #### P T, PTT #### [facility] [address] [place] [address] Dr. Nilton Mccall MANUAL DIFF REQ NO Normal [facility] Comment on above: Performed By: #### P T, PTT #### [facility] [address] [place] [address] Dr. Nilton Mccall MCH (RBC) [Entitic mass] 29.6 pg Normal 26.7-34.0 [facility] Comment on above: Performed By: #### P T, PTT #### [facility] [address] [place] [address] Dr. Nilton Mccall MCHC (RBC) [Mass/Vol] 34.8 g/dL Normal 29.9-35.2 [facility] Comment on above: Performed By: #### P T, PTT #### [facility] [address] [place] [address] Dr. Nilton Mccall MCV (RBC) [Entitic vol] 85.0 fL Normal 81.0-99.0 [facility] Comment on above: Performed By: #### P T, PTT #### [facility] [address] [place] [address] Dr. Nilton Mccall MONO # 0.3 103/ul Normal 0.3-0.8 [facility] Comment on above: Performed By: #### P T, PTT #### [facility] [address] [place] [address] Dr. Nilton Mccall Monocytes/100 WBC (Bld) 5.1 % Normal 1.7-12.0 [facility] Comment on above: Performed By: #### P T, PTT #### [facility] [address] [place] [address] Dr. Nilton Mccall NEUT # 4.2 103/ul Normal 1.4-6.5 [facility] Comment on above: Performed By: #### P T, PTT #### [facility] [address] [place] [address] Dr. Nilton Mccall Neutrophils/100 WBC (Bld) 65.2 % Normal 43.0-75.0 [facility] Comment on above: Performed By: #### P T, PTT #### [facility] [address] [place] [address] Dr. Nilton Mccall Platelet mean volume (Bld) [Entitic vol] 9.4 fL Critically low 9.5-13.5 [facility] Comment on above: Performed By: #### P T, PTT #### [facility] [address] [place] [address] Dr. Nilton Mccall PLT 232 103/ul Normal 150-450 [facility] Comment on above: Performed By: #### P T, PTT #### [facility] [address] [address] [address] Nilton Mccall RBC 4.67 106/ul Normal 4.20-5.40 [facility] Comment on above: Performed By: #### P T, PTT #### [facility] [address] [address] [address] Nilton Mccall WBC 6.4 103/ul Normal 4.0-11.0 [facility] Comment on above: Performed By: #### P T, PTT #### [facility] [address] [address] [address] ABD/PELVIS WO CONon [...] BELÉN ANDRADE Date: 2021-11-14 14:24 Normal [facility] ER URINE PROFILEon 2 Bilirubin Ql (U) Negative Normal NEGATIVE [facility] Comment on above: Performed By: #### C BC #### [facility] [address] [address] [address] Nilton Mccall Clarity (U) CLEAR Normal CLEAR [facility] Comment on above: Performed By: #### C BC #### [facility] [address] [address] [address] Nilton Mccall Color (U) LT. YELLOW Normal YELLOW [facility] Comment on above: Performed By: #### C BC #### [facility] [address] [address] [address] Nilton Mccall ERUAHD A micrscopic examina tion will be performed if indicated. Normal [facility] Comment on above: Performed By: #### C BC #### [facility] [address] [address] [address] Nilton Mccall Glucose Ql (U) Negative Normal NEGATIVE [facility] Comment on above: Performed By: #### C BC #### [facility] [address] [place] [address] Dr. Nilton Mccall Hemoglobin Ql (U) Negative Normal NEGATIVE [facility] Comment on above: Performed By: #### C BC #### [facility] [address] [place] [address] Dr. Nilton Mccall Ketones Ql (U) Negative Normal NEGATIVE [facility] Comment on above: Performed By: #### C BC #### [facility] [address] [place] [address] Dr. Nilton Mccall LEUKOCYTES Negative Normal NEGATIVE [facility] Comment on above: Performed By: #### C BC #### [facility] [address] [place] [address] Dr. Nilton Mccall Nitrite Ql (U) Negative Normal NEGATIVE [facility] Comment on above: Performed By: #### C BC #### [facility] [address] [place] [address] Dr. Nilton Mccall pH (U) 6.0 [pH] Normal 5-9 [facility] Comment on above: Performed By: #### C BC #### [facility] [address] [place] [address] Dr. Nilton Mccall SPEC GRAVITY 1.025 Normal 1.005-<=1. 025 [facility] Comment on above: Performed By: #### C BC #### [facility] [address] [place] [address] Dr. Nilton Mccall UA PROTEIN Negative Normal NEGATIVE/ TRACE [facility] Comment on above: Performed By: #### C BC #### [facility] [address] [place] [address] Dr. Nilton Mccall UR MICRO IND NOT INDICATED Normal [facility] Comment on above: Performed By: #### C BC #### [facility] [address] [place] [address] Dr. Nilton Mccall Urobilinogen Qn (U) 0.2 {Zarina'U}/dL Normal 0.2 - 1. 0 [facility] Comment on above: Performed By: #### C BC #### [facility] [address] [place] [address] Dr. Nilton Mccall MONOon 11-14-2021 Monocytes (Bld) [#/Vol] Negative Normal NEGATIVE [facility] Comment on above: Performed By: #### P T, PTT #### [facility] [address] [place] [address] Dr. Nilton Mccall PROF 14(COMP METB)on 022 Albumin [Mass/Vol] 3.8 g/dL Normal 3.4-5.0 [facility] Comment on above: Performed By: #### C MP #### [facility] [address] [place] [address] Dr. Nilton Mccall Albumin/Globulin [Mass ratio] 1.2 {ratio} Normal [facility] Comment on above: Performed By: #### C MP #### [facility] [address] [place] [address] Dr. Nilton Mccall ALP [Catalytic activity/Vol] 65 U/L Normal 46-116 [facility] Comment on above: Performed By: #### C MP #### [facility] [address] [place] [address] Dr. Nilton Mccall ALT [Catalytic activity/Vol] 29 U/L Normal 14-59 [facility] Comment on above: Performed By: #### C MP #### [facility] [address] [place] [address] Dr. Nilton Mccall Anion gap [Moles/Vol] 8.6 mmol/L Normal [facility] Comment on above: Performed By: #### C MP #### [facility] [address] [address] [address] Nilton Mccall AST [Catalytic activity/Vol] 13 U/L Critically low 15-37 [facility] Comment on above: Performed By: #### C MP #### [facility] [address] [address] [address] Nilton Mccall Bilirubin [Mass/Vol] 0.4 mg/dL Normal 0.2-1.0 [facility] Comment on above: Performed By: #### C MP #### [facility] [address] [address] [address] Nilton Mccall Calcium [Mass/Vol] 8.9 mg/dL Normal 8.5-10.1 [facility] Comment on above: Performed By: #### C MP #### [facility] [address] [address] [address] Nilton Mccall Chloride [Moles/Vol] 106 mmol/L Normal 98-107 [facility] Comment on above: Performed By: #### C MP #### [facility] [address] [address] [address] Nilton Mccall CO2 [Moles/Vol] 26.2 mmol/L Normal 21.0-32.[address] [facility] Comment on above: Performed By: #### C MP #### [facility] [address] [address] [address] Nilton Mccall Creatinine [Mass/Vol] 1.12 mg/dL Critically high 0.55-1.02 [facility] Comment on above: Performed By: #### C MP #### [facility] [address] [address] [address] Nilton Mccall EGFR-AF CITIZEN [place] >60 Normal >=[address] [facility] Comment on above: Performed By: #### C MP #### [facility] [address] [address] [address] Nilton Mccall EGFR-NON AF CITIZEN OF [place] 55 mL/min/1.73m2 Critically low >=60 [facility] Comment on above: Performed By: #### C MP #### [facility] [address] [place] [address] Dr. Nilton Mccall Globulin (S) [Mass/Vol] 3.3 g/dL Normal [facility] Comment on above: Performed By: #### C MP #### [facility] [address] [place] [address] Dr. Nilton Mccall Glucose [Mass/Vol] 88 mg/dL Normal 74-106 [facility] Comment on above: Performed By: #### C MP #### [facility] [address] [place] [address] Dr. Nilton Mccall Potassium [Moles/Vol] 3.8 mmol/L Normal 3.5-5.1 [facility] Comment on above: Performed By: #### C MP #### [facility] [address] [place] [address] Dr. Nilton Mccall Protein [Mass/Vol] 7.1 g/dL Normal 6.4-8.2 [facility] Comment on above: Performed By: #### C MP #### [facility] [address] [place] [address] Dr. Nilton Mccall Sodium [Moles/Vol] 137 mmol/L Normal 136-145 [facility] Comment on above: Performed By: #### C MP #### [facility] [address] [place] [address] Dr. Nilton Mccall Urea nitrogen [Mass/Vol] 14.0 mg/dL Normal 7.0-18.0 [facility] Comment on above: Performed By: #### C MP #### [facility] [address] [place] [address] Dr. Nilton Mccall Urea nitrogen/Creatinine [Mass ratio] 12.5 mg/mg Normal [facility] Comment on above: Performed By: #### C MP #### [facility] [address] [place] [address] Dr. Nilton Mccall CNOVSPon 11-03-2021 CNOVSP Visit (SP) Office ([facility]) LEANA TRAN ([id number]) 1985 F Date Time Provider Department 11/03/21 11:00 AM FUENTES AMARAL During your visit today, we recorded the following information about you: Temperature Pulse Respiration Blood pressure 97.6 degrees 59/minute 16/minute 120/63 Weight Height 100 kg 1.626 m Fuentes Amaral MD 11/06/2021 5:22 PM Signed HEMATOLOGY FOLLOW UP November 03, 2021 (Yves) Some elements in this clinic note that [...] workup. PLAN: 1. Need Mammogram results from [place] 2. Proceed with genetic testing for platelet [...] AND SOCI (more content not included)... Normal [facility] CNPNon 11-01-2021 CNPN Telephone (GMINE) LEANA TRAN ([id number]) 1985 F Date Time Provider Department 11/01/21 [...] testing including a bleeding disorders panel through [employer]. We reviewed self-pay options for this testing, and the patient is interested in pursuing testing on a self-pay basis. The listed self-pay fuller on [employer] website is $1060. 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 Fuentes Amaral during their meeting scheduled for this 11/03/21 before making her final decision. The patient agreed to send me a [employer] message with her decision following her appointment with Dr. Amaral. For additional context please see my clinic note from 08/03/21. Juan Ramon Briones MS, [facility] Licensed, Certified Genetic Counselor Epic CC: [...] Date Reviewed: 10/31/2021 Reviewed by: Landen Clark APRN.RIFLE CASE REPAIRER - Fully Assessed Reason for Visit: Insurance [...] as o (more content not included)... Normal [facility] Feroz 10-28-2021 [employer] [facility] [employer] Telephone (MNOPRX) LEANA TRAN ([id number]) 1985 F Date Time Provider Department 10/28/21 RAF FARIBA JULIANA During your visit today, we recorded the following information about you: Fariba Raf [facility] 10/28/2021 2:24 PM Signed Benefits investigation was conducted, indicating that a prior authorization is required for Ajovy auto-injector 225 mg/1.5 mL . PA was initiated and pending review through [employer]. All pertinent clinical information was submitted to insurance. CMM Appiah: [id number] Ordering Provider: GIOVANNA Chi, Pharmacist [facility] P: , F: Jenni Rocha RN 11/01/2021 9:18 AM Signed Ambulatory Pharmacy Prior Authorization Note Provider Intervention Required?: No- Pharmacy completed on your behalf. Drug: AJOVY (fremanezumab-vfrm) injection 225MG/1.5ML auto-injectors Cover My Meds Appiah: [id number] Determination: Denied PA Denied because: Medical necessity not met Prior Authorization/Case #: [id number] Prior Authorization Expiration: n/A Time to PA [...] feel free to send new eRx to [facility] at that time. No further action by [facility] for now and existing order to be profiled. Jenni Rocha RN Home Delivery [facility] P: , F: For questions relating to this submission, please contact [facility] [phone] Bhargavi Saldana PA-C 11/01/2021 9:27 AM Signed [...] Fully Assessed Reason for Visit: Insurance Authorization [6493] Cmt: Kurt Prescriptions as of 11/28/2021 - [...] mg by (more content not included)... Normal [facility] Feroz 10-27-2021 CNPN Telephone ([employer]) LEANA TRAN ([id number]) 1985 F Date Time Provider Department 10/27/21 [...] Fully Assessed Reason for Visit: Lab Orders [3808] Prescriptions as of 03/10/2022 - DULoxetine (CYMBALTA) [...] - fremanezumab-vfrm subcutaneus auto-injector 225 mg/1.5 mL ([employer]) Inject 1.5 mL subcutaneously once every month. [...] [R52] 08/24/19 (more content not included)... Normal [facility] eFroz 10-24-2021 CNPN Telephone (HEMTSA) LEANA TRAN ([id number]) 1985 F Date Time Provider Department 10/24/21 [...] 10/20/2021 Encount (more content not included)... Normal [facility] MG MAMM DIAGNOSTIC 3D LARS CA Don 10-19-2021 MG MAMM DIAGNOSTIC 3D LARS CAD Patient: LEANA TRAN Exam Date: 10/19/2021 : 1985 Gender:F Ordering : DR CAS DOWELL . Admission #: [id number] Family : Order #: [id number] CLICK HERE TO VIEW EXAM RADIOLOGY REPORT [...] cervical cancer at age 48. LOCATION: [facility] BREAST COMPOSITION: Scattered areas fibroglandular density. [...] M.D. on 10/19/2021 at 11:10 Normal [facility] US BREAST LARS LIMITEDon 09- US BREAST LARS LIMITED Patient: LEANA TRAN Exam Date: 10/19/2021 : 1985 Gender:F Ordering : DR CAS DOWELL . Admission #: [id number] Family : Order #: [id number] CLICK HERE TO VIEW EXAM RADIOLOGY REPORT [...] cervical cancer at age 48. LOCATION: [facility] BREAST COMPOSITION: Scattered areas fibroglandular density. [...] M.D. on 10/19/2021 at 11:10 Normal [facility] XR CHEST 2V FRONTAL/LATon LUNG DIFFUSION CAPACITY (FARHAD O)on 09-27-2021 DLCO (ml/min/mmHg) 22.00 ml/min/mmHg DLCO/VA (ml/min/mmHg/L) 4.60 ml/min/mmHg/L DLCOcor (ml/min/mmHg) 21.26 ml/min/mmHg ERV BOX (L) 0.28 L VPE06-89% POST (L/S) 2.46 L/S [facility] RTL55-50% PRE (L/S) 2.13 L/S [facility] FEV1 PRE (L) 2.83 L FEV1/FVC POST (%) 74 % [facility] FEV1/FVC PRE (%) 73 % [facility] FEV1_POST (L) 2.92 L FRC Box (L) 1.66 L FVC POST (L) 3.92 L FVC PRE (L) 3.89 L IC BOX (L) 2.36 L PEF POST (L/S) 5.48 L/S PEF PRE (L/S) 5.56 L/S RV Box (L) 1.39 L RV/TLC Box (%) 32 % TLC Box (L) 4.36 L VA (L) 4.78 L VC (L) BOX 3.51 L CTA CHEST WO W CONon 022 CTA [...] AYAKA STEARNS Date: 2021-09-22 22:30 Normal [facility] PROF CHEM 8 (BAS METB)on Anion gap [Moles/Vol] 5.4 mmol/L Normal [facility] Comment on above: Performed By: #### B MP #### [facility] [address] [place] [address] Dr. Nilton Mccall Calcium [Mass/Vol] 9.2 mg/dL Normal 8.5-10.1 [facility] Comment on above: Performed By: #### B MP #### [facility] [address] [address] [address] Nilton Mccall Chloride [Moles/Vol] 102 mmol/L Normal 98-107 [facility] Comment on above: Performed By: #### B MP #### [facility] [address] [address] [address] Nilton Mccall CO2 [Moles/Vol] 26.1 mmol/L Normal 21.0-32.0 [facility] Comment on above: Performed By: #### B MP #### [facility] [address] [address] [address] Nilton Mccall Creatinine [Mass/Vol] 0.99 mg/dL Normal 0.55-1.02 [facility] Comment on above: Performed By: #### B MP #### [facility] [address] [address] [address] Nilton Mccall EGFR-AF [place]IZ[place] >60 Normal >=60 [facility] Comment on above: Performed By: #### B MP #### [facility] [address] [address] [address] Nilton Mccall EGFR-NON AF [place]IZEN [place] >60 Normal >=60 [facility] Comment on above: Performed By: #### B MP #### [facility] [address] [address] [address] Nilton Mccall Glucose [Mass/Vol] 113 mg/dL Critically high 74-106 [facility] Comment on above: Performed By: #### B MP #### [facility] [address] [address] [address] Nilton Mccall Potassium [Moles/Vol] 3.5 mmol/L Normal 3.5-5.1 [facility] Comment on above: Performed By: #### B MP #### [facility] [address] [address] [address] Nilton Mccall Sodium [Moles/Vol] 130 mmol/L Critically low 136-145 [facility] Comment on above: Performed By: #### B MP #### [facility] [address] [address] [address] Nilton Mccall Urea nitrogen [Mass/Vol] 13.0 mg/dL Normal 7.0-18.0 [facility] Comment on above: Performed By: #### B MP #### [facility] [address] [address] [address] Nilton Mccall Urea nitrogen/Creatinine [Mass ratio] 13.1 mg/mg Normal [facility] Comment on above: Performed By: #### B MP #### [facility] [address] [place] [address] Dr. Nilton Mccall GLYCOHEMOGLOBIN A1Con 2021 ADA RECOMMENDATION SEE BELOW Normal [facility] Comment on above: Result Comment: ADA RECOMMENDED LIMIT 4.0 - 6.0 ADA THERAPEUTIC TARGET < 7.0 ACTION SUGGESTED > 7.0 Performed By: #### C BC #### [facility] [address] [address] [address] Nilton Mccall Glucose [Mass/Vol] 140 mg/dL Normal [facility] Comment on above: Performed By: #### C BC #### [facility] [address] [place] [address] Dr. Nilton Mccall HbA1c (Bld) [Mass fraction] 6.5 % Critically high 4.5-6.2 [facility] Comment on above: Performed By: #### C BC #### [facility] [address] [place] [address] Dr. Nilton Mccall ECHOon 08-17-2021 Echocardiography Echocardiography Rep ort: Transthoracic Echo [facility] Date of service: 08/17/2021 2:18:31 PM Ordering physician: SAI PEREZ Indication: Hypotension Technologist: Yuni Durbin [facility] Interpreting physician: Gavin Muse MD PATIENT: [...] * * Final * * * CC [employer] [facility] : [id number] [employer] Normal [facility] LVEF ECHOon 08-17-2021 LV Ejection Fraction 58 % [facility] PAP ACOG PANEL 2: 30 to 65on 08-05-2021 . . Normal [facility] Comment on above: Result Comment: Perf ormed at: WB Performed By: #### P T, PTT #### [facility] [address] [place] [address] Dr. Nilton Mccall Age Gdln ACOG Testing 30-[address] [facility] Comment on above: Performed By: #### P T, PTT #### [facility] [address] [place] [address] Dr. Nilton Mccall DIAGNOSIS: Comment Normal [facility] Comment on above: Result Comment: NEGA TIVE FOR INTRAEPITHELIAL LESION OR MALIGNANCY. Performed at: WB Performed By: #### P T, PTT #### [facility] [address] [address] [address] Nilton Mccall HPV Aptima Negative Normal Negative [facility] Comment on above: Result Comment: This nucleic acid amplification test detects fourteen high-risk HPV types (16,18,31,33,35,39,45,51,52,56,58,59,66,68) without differentiation. Performed at: =G Performed By: #### P T, PTT #### [facility] [address] [place] [address] Dr. Nilton Mccall Methodology: Comment Normal [facility] Comment on above: Result Comment: This liquid based ThinPrep(R) pap test was screened with the use of an image guided system. Performed at: WB Performed By: #### P T, PTT #### [facility] [address] [place] [address] Dr. Nilton Mccall Note: Comment Normal [facility] Comment on above: Result Comment: The [...] Performed By: #### P T, PTT #### [facility] [address] [place] [address] Dr. Nilton Mccall Performed by: Comment Normal [facility] Comment on above: Result Comment: Jay Ellison Hand Ironer (ASCP) Performed at: WB Performed By: #### P T, PTT #### [facility] [address] [address] [address] Nilton Mccall Specimen adequacy: Comment Normal [facility] Comment on above: Result Comment: Sati sfactory for evaluation. No endocervical component is identified. Performed at: WB Performed By: #### P T, PTT #### [facility] [address] [place] [address] Dr. Nilton Mccall C3 SerPl-mCncon 07-25-2021 Complement C3 [Mass/Vol] 165 mg/dL Normal 86-166 [facility] Comment on above: Order Comment: Speci men Type: BLOOD SPECIMEN Ordering Facility: [facility] Address: [address] [place] [address] Performed By: #### 4 485-9, 4498-2 #### [facility] CLIA [id number] [address] [facility] [place] [address] [place] C4 SerPl-mCncon 07-25-2021 Complement C4 [Mass/Vol] 32 mg/dL Normal 13-46 [facility] Comment on above: Order Comment: Speci men Type: BLOOD SPECIMEN Ordering Facility: [facility] Address: [address] [place] [address] Performed By: #### 4 485-9, 4498-2 #### [facility] CLIA [id number] [address] [place] [address] [place] TRYPTASE BLOODon 07-25-2021 Tryptase [Mass/Vol] 3.4 ug/L Normal <8.4 [facility] Comment on above: Order Comment: Speci men Type: BLOOD SPECIMEN Ordering Facility: [facility] Address: [address] [place] [address] Performed By: #### T RYPT #### [facility] CLIA [id number] [address] [place] [address] [place] ACTH [facility] 07-18-2021 Corticotropin (P) [Mass/Vol] 15.5 pg/mL 7.2 - 63.3 pg/mL CORTISOL [facility] 07-18-2021 Cortisol [Mass/Vol] 9.9 ug/dL 4.8 - 19 .5 ug/dL Alpha tocopherol [Mass/Vol]o n 07-07-2021 Beta+gamma tocopherol [Mass/Vol] 3.0 mg/L 0.3 - 3.2 mg/L VITAMIN E/TOCOPHEROLon 07-07 Alpha tocopherol [Mass/Vol] 13.1 mg/L 6.0 - 23.0 mg/L ACTH [facility] 07-02-2021 Corticotropin (P) [Mass/Vol] 15.1 pg/mL 7.2 - 63.3 pg/mL CERULOPLASMIN [facility] 07-02-19 22 Ceruloplasmin [Mass/Vol] 23 mg/dL 16 - 45 mg/dL CK CREATINE KINASEon 022 CK [Catalytic activity/Vol] 51 U/L 42 - 196 U/L CORTISOL Don 07-01-2021 Cortisol [Mass/Vol] 7.4 ug/dL 4.8 - 19 .5 ug/dL DHEA-S [facility] 07-01-2021 DHEA-S [Mass/Vol] 35.9 ug/dL Low 60.9 - 337.0 ug/dL FERRITIN [facility] 07-01-2021 Ferritin [Mass/Vol] 98.2 ng/mL 14.7 - 205.1 ng/mL BNP 06-24-2021 Natriuretic peptide B (Bld) [Mass/Vol] 15.0 pg/mL Normal <=450.0 [facility] Comment on above: Performed By: #### C BC #### [facility] [address] [address] [address] Nilton Mccall CARDIAC CHAYO 3-6on 2 CK [Catalytic activity/Vol] 60 U/L Normal 26-192 [facility] Comment on above: Performed By: #### C MREP #### [facility] [address] [place] [address] Dr. Nilton Mccall CK.MB [Mass/Vol] 0.33 ng/mL Normal <=3.60 [facility] Comment on above: Performed By: #### C MREP #### [facility] [address] [place] [address] Dr. Nilton Mccall HSTROP 4.7 pg/mL Normal 4.0-51.3 [facility] Comment on above: Result Comment: CUT- OFF POINTS HAVE BEEN ESTABLISHED BASED ON THE FOURTH UNIVERSAL DEFINITIONS OF MYOCARDIAL INFARCTION. THE UPPER REFERENCE LIMIT (URL) OF TROPONIN, DEFINED THE 99TH PERCENTILE OF cTnI DISTRIBUTION IN A REFERENCE POPULATION, HAS BEEN CONFIRMED THE DECISION THRESHOLD FOR [place] DIAGNOSIS. Performed By: #### C MREP #### [facility] [address] [place] [address] Dr. Nilton Mccall CARDIAC CHAYO ADMITon 022 CK [Catalytic activity/Vol] 71 U/L Normal 26-192 [facility] Comment on above: Performed By: #### C BC #### [facility] [address] [place] [address] Dr. Nilton Mccall CK.MB [Mass/Vol] 0.50 ng/mL Normal <=3.[address] [facility] Comment on above: Performed By: #### C BC #### [facility] [address] [place] [address] Dr. Nilton Mccall HSTROP 3.8 pg/mL Critically low 4.0-51.3 [facility] Comment on above: Result Comment: CUT- OFF POINTS HAVE BEEN ESTABLISHED BASED ON THE FOURTH UNIVERSAL DEFINITIONS OF MYOCARDIAL INFARCTION. THE UPPER REFERENCE LIMIT (URL) OF TROPONIN, DEFINED THE 99TH PERCENTILE OF cTnI DISTRIBUTION IN A REFERENCE POPULATION, HAS BEEN CONFIRMED THE DECISION THRESHOLD FOR [place] DIAGNOSIS. Performed By: #### C BC #### [facility] [address] [place] [address] Dr. Nilton Mccall PILI 25 ng/mL Normal 9-82 [facility] Comment on above: Performed By: #### C BC #### [facility] [address] [place] [address] Dr. Nilton Mccall CBC AUTO DIFFon 06-24-2021 BASO # 0.1 103/ul Normal 0.0-0.1 [facility] Comment on above: Performed By: #### C MP #### [facility] [address] [place] [address] Dr. Nilton Mccall Basophils/100 WBC (Bld) 0.6 % Normal 0.2-2.0 [facility] Comment on above: Performed By: #### C MP #### [facility] [address] [place] [address] Dr. Nilton Mccall EO # 0.2 103/ul Normal 0.0-0.7 [facility] Comment on above: Performed By: #### C MP #### [facility] [address] [place] [address] Dr. Nilton Mccall Eosinophils/100 WBC (Bld) 2.2 % Normal 0.9-7.0 [facility] Comment on above: Performed By: #### C MP #### [facility] [address] [place] [address] Dr. Nilton Mccall Erythrocyte distribution width (RBC) [Ratio] 11.8 % Normal 11.0-15.0 [facility] Comment on above: Performed By: #### C MP #### [facility] [address] [place] [address] Dr. Nilton Mccall Hematocrit (Bld) [Volume fraction] 43.4 % Normal 36.0-48.0 [facility] Comment on above: Performed By: #### C MP #### [facility] [address] [place] [address] Dr. Nilton Mccall Hemoglobin (Bld) [Mass/Vol] 14.8 g/dL Normal 12.0-16.0 [facility] Comment on above: Performed By: #### C MP #### [facility] [address] [place] [address] Dr. Nilton Mccall IG # 0.04 10e3/ul Critically high 0.00-0.03 [facility] Comment on above: Performed By: #### C MP #### [facility] [address] [place] [address] Dr. Nilton Mccall IG % 0.4 % Normal 0.0-0.5 [facility] Comment on above: Performed By: #### C MP #### [facility] [address] [place] [address] Dr. Nilton Mccall LYMPH # 2.0 103/ul Normal 1.2-3.8 [facility] Comment on above: Performed By: #### C MP #### [facility] [address] [place] [address] Dr. Nilton Mccall Lymphocytes/100 WBC (Bld) 21.5 % Normal 20.5-60.0 [facility] Comment on above: Performed By: #### C MP #### [facility] [address] [place] [address] Dr. Nilton Mccall MANUAL DIFF REQ NO Normal [facility] Comment on above: Performed By: #### C MP #### [facility] [address] [place] [address] Dr. Nilton Mccall MCH (RBC) [Entitic mass] 29.4 pg Normal 26.7-34.0 [facility] Comment on above: Performed By: #### C MP #### [facility] [address] [place] [address] Dr. Nilton Mccall MCHC (RBC) [Mass/Vol] 34.1 g/dL Normal 29.9-35.2 [facility] Comment on above: Performed By: #### C MP #### [facility] [address] [place] [address] Dr. Nilton Mccall MCV (RBC) [Entitic vol] 86.1 fL Normal 81.0-99.0 [facility] Comment on above: Performed By: #### C MP #### [facility] [address] [place] [address] Dr. Nilton Mccall MONO # 0.5 103/ul Normal 0.3-0.8 [facility] Comment on above: Performed By: #### C MP #### [facility] [address] [place] [address] Dr. Nilton Mccall Monocytes/100 WBC (Bld) 5.4 % Normal 1.7-12.0 [facility] Comment on above: Performed By: #### C MP #### [facility] [address] [place] [address] Dr. Nilton Mccall NEUT # 6.3 103/ul Normal 1.4-6.5 [facility] Comment on above: Performed By: #### C MP #### [facility] [address] [place] [address] Dr. Nilton Mccall Neutrophils/100 WBC (Bld) 69.9 % Normal 43.0-75.0 [facility] Comment on above: Performed By: #### C MP #### [facility] [address] [place] [address] Dr. Nilton Mccall Platelet mean volume (Bld) [Entitic vol] 9.6 fL Normal 9.5-13.5 [facility] Comment on above: Performed By: #### C MP #### [facility] [address] [place] [address] Dr. Nilton Mccall PLT 290 103/ul Normal 150-450 [facility] Comment on above: Performed By: #### C MP #### [facility] [address] [place] [address] Dr. Nilton Mccall RBC 5.04 106/ul Normal 4.20-5.40 [facility] Comment on above: Performed By: #### C MP #### [facility] [address] [place], [place] [address] Dr. Nilton Mccall WBC 9.1 103/ul Normal 4.0-11.0 [facility] Comment on above: Performed By: #### C MP #### [facility] [address] [place], [place] [address] STROKE HEAD WOon [...] MAREK EPSTEIN Date: 2021-06-24 20:56 Normal [facility] CT STROKE HEAD WO NONCONTRAST CT [...] MAREK EPSTEIN Date: 2021-06-24 19:15 Normal [facility] Covid-19 PCR (CVDTB)on 06-06 SARS-CoV-2 (COVID-19) RNA CHRISTI+probe Ql (Unsp spec) Not detected Normal NOT DETECTED [facility] Comment on above: Result Comment: When [...] for this test is supported by the [place] of Health and Human Service's declaration that [...] Performed By: #### P T, PTT #### [facility] [address] [place] [address] Dr. Nilton Mccall ER URINE PROFILEon 2 Bilirubin Ql (U) Negative Normal NEGATIVE [facility] Comment on above: Performed By: #### E RUR, PREGU #### [facility] [address] [place] [address] Dr. Nilton Mccall Clarity (U) CLEAR Normal CLEAR [facility] Comment on above: Performed By: #### E RUR, PREGU #### [facility] [address] [place] [address] Dr. Nilton Mccall Color (U) YELLOW Normal YELLOW [facility] Comment on above: Performed By: #### E RUR, PREGU #### [facility] [address] [place] [address] Dr. Nilton Mccall ERUAHD A micrscopic examina tion will be performed if indicated. Normal [facility] Comment on above: Performed By: #### E RUR, PREGU #### [facility] [address] [place] [address] Dr. Nilton Mccall Glucose Ql (U) Negative Normal NEGATIVE [facility] Comment on above: Performed By: #### E RUR, PREGU #### [facility] [address] [place] [address] Dr. Nilton Mccall Hemoglobin Ql (U) Negative Normal NEGATIVE [facility] Comment on above: Performed By: #### E RUR, PREGU #### [facility] [address] [place] [address] Dr. Nilton Mccall Ketones Ql (U) Negative Normal NEGATIVE [facility] [place] Comment on above: Performed By: #### E RUR, PREGU #### [facility] [address] [place] [address] Dr. Nilton Mccall LEUKOCYTES Negative Normal NEGATIVE [facility] Comment on above: Performed By: #### E RUR, PREGU #### [facility] [address] [place] [address] Dr. Nilton Mccall Nitrite Ql (U) Negative Normal NEGATIVE [facility] Comment on above: Performed By: #### E RUR, PREGU #### [facility] [address] [place] [address] Dr. Nilton Mccall pH (U) 6.0 [pH] Normal 5-9 [facility] Comment on above: Performed By: #### E RUR, PREGU #### [facility] [address] [place] [address] Dr. Nilton Mccall SPEC GRAVITY 1.015 Normal 1.005-<=1. 025 [facility] Comment on above: Performed By: #### E RUR, PREGU #### [facility] [address] [place] [address] Dr. Nilton Mccall UA PROTEIN Negative Normal NEGATIVE/ TRACE [facility] Comment on above: Performed By: #### E RUR, PREGU #### [facility] [address] [place] [address] Dr. Nilton Mccall UR MICRO IND NOT INDICATED Normal [facility] Comment on above: Performed By: #### E RUR, PREGU #### [facility] [address] [place] [address] Dr. Nilton Mccall Urobilinogen Qn (U) 0.2 {Zarina'U}/dL Normal 0.2 - 1. 0 [facility] Comment on above: Performed By: #### E RUR, PREGU #### [facility] [address] [place] [address] [address] Nilton Mccall LACTATE/LACTIC ACIDon 2021 Lactate [Moles/Vol] 1.0 mmol/L Normal 0.4-1.9 [facility] Comment on above: Performed By: #### P T, PTT #### [facility] [address] [place] [address] Dr. Nilton Mccall LIPASEon 06-24-2021 Lipase [Catalytic activity/Vol] 103.0 U/L Normal 73.0-393.0 [facility] Comment on above: Performed By: #### C BC #### [facility] [address] [place] [address] Dr. Nilton Mccall PH VENOUS BLOODon 06-24-2021 PCO2 VENOUS 29.4 mmHg Critically low 40.0-52.0 [facility] Comment on above: Performed By: #### P T, PTT #### [facility] [address] [place] [address] Dr. Nilton Mccall pH VENOUS 7.478 Critically high 7.330-7.[address] [facility] Comment on above: Performed By: #### P T, PTT #### [facility] [address] [place] [address] Dr. Nilton Mccall POINT OF CARE GLUCOSEon 06-06 Glucose [Mass/Vol] 107 mg/dL Critically high 74-106 [facility] Comment on above: Performed By: #### C MP #### [facility] [address] [place] [address] Dr. Nilton Mccall URon 06-24-2021 , QUAL Negative Normal NEGATIVE [facility] Comment on above: Performed By: #### E RUR, PREGU #### [facility] [address] [place] [address] Dr. Nilton Mccall PROTIMEon 06-24-2021 INR Coag (PPP) [Relative time] 0.99 {INR} Normal [facility] Comment on above: Performed By: #### P T, PTT #### [facility] [address] [place] [address] Dr. Nilton Mccall INR GUIDELINES SEE BELOW Normal [facility] [place] Comment on above: Result Comment: JOSS RED INR: 2.0 - 3.0 CONDITIONS NOT LISTED BELOW 2.5 - 3.5 FOR PROSTHETIC HEART VALVE REPLACEMENT 2.5 - 3.5 RECURRENT THROMBOSIS Performed By: #### P T, PTT #### [facility] [address] [place] [address] Dr. Nilton Mccall PT Coag (PPP) [Time] 10.7 s Normal 9.0-11.6 [facility] Comment on above: Performed By: #### P T, PTT #### [facility] [address] [place] [address] Dr. Nilton Mccall PTTon 06-24-2021 aPTT Coag (Bld) [Time] 32.5 s Normal 22.3-36.2 [facility] Comment on above: Performed By: #### P T, PTT #### [facility] [address] [place] [address] Dr. Nilton Mccall TSHon 06-24-2021 TSH 0.655 uIU/mL Normal 0.358-3.74 0 [facility] Comment on above: Performed By: #### C BC #### [facility] [address] [place] [address] Dr. Nilton Mccall TSH RANGE SEE BELOW Normal [facility] Comment on above: Result Comment: <0.3 4 UIU/ml HYPERTHYROID 0.34-5.60 UIU/ml EUTHYROID >5.60 UIU/ml HYPOTHYROID Performed By: #### C BC #### [facility] [address] [place] [address] Dr. Nilton Mccall XR CHEST 1 Von [...] BELÉN DC Date: 2021-06-24 19:14 Normal [facility] Basic Metabolic Panelon 06-05 Anion gap [Moles/Vol] 11 mmol/L 9 - 17 mmol/L [facility] Calcium [Mass/Vol] 9.3 mg/dL 8.6 - 10. 4 mg/dL [facility] Chloride [Moles/Vol] 102 mmol/L 98 - 10 7 mmol/L [facility] CO2 [Moles/Vol] 23 mmol/L 20 - 31 mmol/L [facility] Creatinine [Mass/Vol] 0.78 mg/dL 0.50 - 0.90 mg/dL [facility] GFR >60 >60 mL/min [facility] GFR Non- >60 >60 mL/min [facility] Glucose [Mass/Vol] 160 mg/dL High 70 - 99 mg/dL [facility] Interpretation and review of laboratory results Abnormal [facility] Potassium [Moles/Vol] 3.7 mmol/L 3.7 - 5.3 mmol/L [facility] Sodium [Moles/Vol] 136 mmol/L 135 - 144 mmol/L [facility] Urea nitrogen (BldV) [Mass/Vol] 12 mg/dL 6 - 20 mg/dL [facility] Urea nitrogen/Creatinine (Bld) [Mass ratio] 15 [facility] CBC with Auto Differentialon 06-21-2021 Absolute Eos # 0.21 [facility] th Absolute Immature Granulocyte 0.03 [facility] Absolute Lymph # 2.43 [facility] Absolute [place] [facility] Basophils (Bld) [#/Vol] 0.05 10*3/uL [facility] Basophils/100 WBC (Bld) 1 % 0 - 2 % [facility] Eosinophils/100 WBC (Bld) 3 % 1 - 4 % [facility] Hematocrit (Bld) [Volume fraction] 41.8 % 36.3 - 47.1 % [facility] Hemoglobin.gastroint estinal spec 1 Ql (Stl) 14.0 g/dL 11.9 - 15.1 g/dL [facility] Immature granulocytes/100 WBC (Bld) 0 % 0 [facility] Interpretation and review of laboratory results Abnormal [facility] Lymphocytes/100 WBC (Bld) 29 % 24 - 43 % [facility] MCH (RBC) [Entitic mass] 29.2 pg 25.2 - 33.5 pg [facility] MCHC (RBC) [Mass/Vol] 33.5 g/dL 28.4 - 34.8 g/dL [facility] MCV (RBC) [Entitic vol] 87.1 fL 82.6 - 102.9 fL [facility] Monocytes/100 WBC (Bld) 5 % 3 - 12 % [facility] NRBC Automated 0.0 0.0 per 100 WBC [facility] Platelet distribution width (Bld) [Ratio] 11.5 % Low 11.8 - 14.4 % [facility] Platelet mean volume (Bld) [Entitic vol] 9.6 fL 8.1 - 13.5 fL [facility] Platelets (Bld) [#/Vol] 264 10*3/uL [facility] RBC (Bld) [#/Vol] 4.80 10*6/uL 3.95 - 5.11 m/uL [facility] Segmented neutrophils/100 WBC (Bld) 62 % 36 - 65 % [facility] Segs [facility] 5.12 [facility] (Bld) [#/Vol] 8.3 10*3/uL [facility] Laboratory - Chemistry and C hemistry - challengeon 06-21-2021 GFR/1.73 sq M.predicted MDRD (S/P/Bld) [Vol rate/Area] [facility] Comment on above: Average GFR for 30-3 9 years old: 107 mL/min/1.73sq m Chronic Kidney Disease: <60 mL/min/1.73sq m Kidney failure: <15 mL/min/1.73sq m eGFR calculated using average adult body mass. Additional eGFR calculator available at: http://www.[employer].skillsbite.com/multiple_crcl_2012.htm Stage 1: Some kidney damage normal GFR Stage 2: Mild kidney damage GFR 60-89 Stage 3: Moderate kidney damage GFR 30-59 Stage 4: Severe kidney damage GFR 15-29 Stage 5: Severe kidney damage GFR <15 ESRD - chronic treatment by dialysis or transplant Magnesiumon 06-21-2021 Magnesium [Mass/Vol] 1.8 mg/dL 1.6 - 2 .6 mg/dL [facility] TSHon 06-21-2021 TSH Qn 1.33 m[IU]/L [facility] Troponinon 06-21-2021 Troponin, High Sensitivity <6 0 - 14 ng/L [facility] Comment on above: High Sensitivity Troponin values cannot be compared with other Troponin methodologies. Patients with high levels of Biotin oral intake (i.e >5mg/day) may have falsely decreased Troponin levels. Samples collected within 8 hours of biotin intake may require additional information for diagnosis. [facility]19 No acute cardiopulmo nary disease. [facility] EXAMINATION: ONE XRAY VIEW OF THE CHEST 06/21/2021 12:52 am COMPARISON: 05/20/2021 HISTORY: ORDERING SYSTEM PROVIDED HISTORY: chest pain TECHNOLOGIST PROVIDED HISTORY: chest pain FINDINGS: Heart size and configuration are normal. Hilar and mediastinal structures are unremarkable. The lungs are clear. No pneumothorax or pleural fluid. No acute bone finding. [facility] Armando Stern MD - 06/21/2021 EXAMINATION: ONE XRAY VIEW OF THE CHEST 06/21/2021 12:52 am COMPARISON: 05/20/2021 HISTORY: ORDERING SYSTEM PROVIDED HISTORY: chest pain TECHNOLOGIST PROVIDED HISTORY: chest pain FINDINGS: Heart size and configuration are normal. Hilar and mediastinal structures are unremarkable. The lungs are clear. No pneumothorax or pleural fluid. No acute bone finding. IMPRESSION: No acute cardiopulmonary disease. [employer] Work Phone: Radiology Study observation (narrative) [employer] Phone: XR CHEST PORTABLEOrdered By: Armando Stern on 06-21-2021 [employer] Phone: [facility]IED HEALTHon 06-16-2021 [facility] HNO ID: [id number] Author: RT Geovanna(R) Service: ? Author Type: [...] DATE: June 16, 2021 TIME: 11:05 AM [facility] MRI BRAIN WO/W IVCONon 06-16 MRI BRAIN WO/W IVCON * * *Final Report* * * DATE OF EXAM: Jun 16 2021 11:27AM [facility] [id number] - MRI BRAIN WO/W IVCON [...] of the brain with and without contrast. Tennis Coach: PSCB Transcribe Date/Time: Jun 16 2021 11:31A Dictated by : ANNA BOLAND MD This examination was interpreted and the report reviewed and electronically signed by: ANNA BOLAND MD on Jun 16 2021 11:53AM EST [id number] Normal [facility] ACTH Don 06-14-2021 Corticotropin (P) [Mass/Vol] 11.6 pg/mL 7.2 - 63.3 pg/mL Basic Metabolic Panel w/ Ref douglas to MGon 05-20-2021 Anion gap [Moles/Vol] 11 mmol/L 9 - 17 mmol/L [facility] [employer] Calcium [Mass/Vol] 9.1 mg/dL 8.6 - 10. 4 mg[facility] Chloride [Moles/Vol] 103 mmol/L 98 - 10 7 mmol/L [facility] CO2 [Moles/Vol] 23 mmol/L 20 - 31 mmol/L [facility] Creatinine [Mass/Vol] 0.74 mg/dL 0.50 - 0.90 mg/dL [facility] GFR >60 >60 mL/min [facility] GFR Non- >60 >60 mL/min [facility] Glucose [Mass/Vol] 101 mg/dL High 70 - 99 mg/dL [facility] Interpretation and review of laboratory results Abnormal [facility] [employer] Potassium [Moles/Vol] 3.7 mmol/L 3.7 - 5.3 mmol/L [facility] Sodium [Moles/Vol] 137 mmol/L 135 - 144 mmol/L [facility] Urea nitrogen (BldV) [Mass/Vol] 9 mg/dL 6 - 20 mg/dL [facility] Urea nitrogen/Creatinine (Bld) [Mass ratio] 12 [facility] Brain Natriuretic Peptideon 05-20-2021 Natriuretic peptide B (Bld) [Mass/Vol] 173 pg/mL <300 [facility] Comment on above: An age-independent cutoff point of 300 pg/ml has a 98% negative predictive value excluding acute heart failure. C-Reactive Proteinon 022 CRP [Mass/Vol] mg/L 0.0 - 5.0 mg/L [facility] CBC with Auto Differentialon 05-20-2021 Absolute Eos # 0.18 [facility] th Absolute Immature Granulocyte 0.03 [facility] Absolute Lymph # 1.75 [facility] He alth Absolute [place] # 0.29 [facility] lth Basophils (Bld) [#/Vol] 0.03 10*3/uL [facility] Basophils/100 WBC (Bld) 0 % 0 - 2 % [facility] Eosinophils/100 WBC (Bld) 3 % 1 - 4 % [facility] Hematocrit (Bld) [Volume fraction] 43.8 % 36.3 - 47.1 % [facility] Hemoglobin.gastroint estinal spec 1 Ql (Stl) 14.6 g/dL 11.9 - 15.1 g/dL [facility] Immature granulocytes/100 WBC (Bld) 0 % 0 [facility] Interpretation and review of laboratory results Abnormal [facility] Lymphocytes/100 WBC (Bld) 25 % 24 - 43 % [facility] MCH (RBC) [Entitic mass] 29.0 pg 25.2 - 33.5 pg [facility] MCHC (RBC) [Mass/Vol] 33.3 g/dL 28.4 - 34.8 g/dL [facility] MCV (RBC) [Entitic vol] 86.9 fL 82.6 - 102.9 fL [facility] Monocytes/100 WBC (Bld) 4 % 3 - 12 % [facility] NRBC Automated 0.0 0.0 per 100 WBC [facility] Platelet distribution width (Bld) [Ratio] 11.5 % Low 11.8 - 14.4 % [facility] Platelet mean volume (Bld) [Entitic vol] 9.5 fL 8.1 - 13.5 fL [facility] Platelets (Bld) [#/Vol] 242 10*3/uL [facility] RBC (Bld) [#/Vol] 5.04 10*6/uL 3.95 - 5.11 m/uL [facility] Segmented neutrophils/100 WBC (Bld) 68 % High 36 - 65 % [facility] Segs Absolute 4.67 [facility] h WBC (Bld) [#/Vol] 7.0 10*3/uL [facility] CT ABDOMEN PELVIS WO CONTRAS T Additional Contrast? Noneon 05-20-2021 1. No acute abdomina l or pelvic findings. 2. There is diastasis of the rectus abdominus fascia in the midline lower abdomen measuring up to 3 cm. A loop of colon is seen to protrude into the small defect without evidence of incarceration. 3. Hepatic steatosis [facility] EXAMINATION: CT OF THE ABDOMEN [...] incarceration or obstruction. No suspicious osseous lesions. [facility] Jesus Unger P - 05/20/2021 [...] without evidence of incarceration. 3. Hepatic steatosis [employer] Phone: Radiology Study observation (narrative) [employer] Phone: CT ABDOMEN PELVIS WO CONTRAS T Additional Contrast? NoneOrdered By: Jesus Unger on 05-20-2021 [employer] Phone: D-Dimer, Quantitativeon 05-06 [facility]-Dimer, Quant 0.34 [facility] Comment on above: When combined with [...] more prevalent in patients with distal DVT. [employer] Drug screen multi urineon Amphetamine Screen, Ur Negative NEGATIVE [employer] Barbiturate Screen, Ur Negative NEGATIVE [employer] Benzodiazepine Screen, Urine Negative NEGATIVE [employer] Buprenorphine Urine Negative NEGATIVE [employer] Cannabinoid Scrn, Ur Negative NEGATIVE [employer] Cocaine Metabolite, Urine Negative NEGATIVE [employer] Methadone Screen, Urine Negative NEGATIVE [employer] Methamphetamine, Urine Negative NEGATIVE [employer] Opiates, Urine Negative NEGATIVE [facility] th Oxycodone Screen, Ur Negative NEGATIVE [employer] Phencyclidine, Urine Negative NEGATIVE [employer] Propoxyphene, Urine Negative NEGATIVE [employer] Tricyclic Antidepressants, Urine Negative NEGATIVE [facility] Comment on above: Drug screen results are to be used for medical purposes only. All positive results are unconfirmed. Testing for employment or legal uses should be sent to a reference laboratory for confirmation. [employer] EKG 12 LeadOrdered By: Gosia quinn on 05-20-2021 Atrial Rate 51 BPM [employer] Work Phone: P [place] 56 degrees [employer] Phone: P-R Interval 152 ms [employer] Work Phone: Q-T Interval 448 ms [employer] Work Phone: QRS Duration 90 ms [employer] Work Phone: QTc Calculation ([place]) 412 ms [employer] Phone: R [place] 79 degrees [employer] Work Phone: T [place] 62 degrees [employer] Work Phone: Ventricular Rate 51 BPM [facility] [facility] Work Phone: [employer] Work Phone: EKG 12 Leadon 05-20-2021 Sinus bradycardia wi th sinus arrhythmia T wave abnormality, consider anterior ischemia Abnormal ECG When compared with ECG of 16-APR-2021 20:11, No significant change was found Confirmed by Gosia Rangel MD ([id number]) on 05/20/2021 6:51:52 PM [facility] RADIOLOGY Gosia Rangel MD - 05/20/2021 Sinus bradycardia with sinus arrhythmia T wave abnormality, consider anterior ischemia Abnormal ECG When compared with ECG of 16-APR-2021 20:11, No significant change was found Confirmed by Gosia Rangel MD ([id number]) on 05/20/2021 6:51:52 PM [employer] Work Phone: Laboratory - Chemistry and C hemistry - challengeon 05-20-2021 GFR/1.73 sq M.predicted MDRD (S/P/Bld) [Vol rate/Area] [facility] [employer] Comment on above: Average GFR for 30-3 9 years old: 107 mL/min/1.73sq m Chronic Kidney Disease: <60 mL/min/1.73sq m Kidney failure: <15 mL/min/1.73sq m eGFR calculated using average adult body mass. Additional eGFR calculator available at: http://www.[employer].skillsbite.com/multiple_crcl_2012.htm Stage 1: Some kidney damage normal GFR Stage 2: Mild kidney damage GFR 60-89 Stage 3: Moderate kidney damage GFR 30-59 Stage 4: Severe kidney damage GFR 15-29 Stage 5: Severe kidney damage GFR <15 ESRD - chronic treatment by dialysis or transplant Lactic Acidon 05-20-2021 Lactate [Moles/Vol] 0.9 mmol/L 0.5 - 2. 2 mmol/L [facility] [employer] Lipaseon 05-20-2021 Lipase [Catalytic activity/Vol] 46 U/L 13 - 60 U/L [facility] Microscopic Urinalysison - [facility] Bacteria, UA TRACE Abnormal None [facility] Epithelial Cells UA 0 TO 2 [facility] Interpretation and review of laboratory results Abnormal [facility] RBC, UA None [facility] WBC, UA None [facility] No Panel Informationon 05-20 [facility] Sedimentation Rateon 022 Sed Rate 9 [facility] TSH with Reflexon 05-20-2021 TSH Qn 1.20 m[IU]/L [facility] Troponinon 05-20-2021 Troponin, High Sensitivity <6 0 - 14 ng/L [facility] Comment on above: High Sensitivity Troponin values cannot be compared with other Troponin methodologies. Patients with high levels of Biotin oral intake (i.e >5mg/day) may have falsely decreased Troponin levels. Samples collected within 8 hours of biotin intake may require additional information for diagnosis. [facility] Troponin, High Sensitivity <6 0 - 14 ng/L [facility] Comment on above: High Sensitivity Troponin values cannot be compared with other Troponin methodologies. Patients with high levels of Biotin oral intake (i.e >5mg/day) may have falsely decreased Troponin levels. Samples collected within 8 hours of biotin intake may require additional information for diagnosis. Urinalysis with Reflex to Cu ltureon 05-20-2021 Bilirubin Urine Negative NEGATIVE [facility] lt Color, UA Yellow Yellow [facility] Glucose, Ur Negative NEGATIVE [facility] Interpretation and review of laboratory results Abnormal [facility] Ketones Ql (U) Negative NEGATIVE [facility] Leukocyte esterase Test strip Ql (U) Negative NEGATIVE [facility] Nitrite, Urine Negative NEGATIVE [facility] pH, UA 6.0 [facility] Protein, UA Negative NEGATIVE [facility] Specific [place], UA <1.005 Low [facility] Turbidity UA Clear Clear [facility] Urine Hgb Negative NEGATIVE [facility] Urobilinogen, Urine Normal Normal [facility] XR CHEST PORTABLEon 05-21-19 No abnormalities not ed. PN RIS CONSOLIDATED EXAMINATION: ONE XRAY VIEW OF THE CHEST 05/20/2021 1:33 pm COMPARISON: 04/16/2021 HISTORY: ORDERING SYSTEM PROVIDED HISTORY: chest pain TECHNOLOGIST PROVIDED HISTORY: chest pain FINDINGS: The lungs appear clear. The heart and mediastinal structures are unremarkable. Bony thorax appears normal. Visualized upper abdomen is unremarkable. [facility] Yoel Rendon MD - 05/20/2021 EXAMINATION: ONE XRAY VIEW OF THE CHEST 05/20/2021 1:33 pm COMPARISON: 04/16/2021 HISTORY: ORDERING SYSTEM PROVIDED HISTORY: chest pain TECHNOLOGIST PROVIDED HISTORY: chest pain FINDINGS: The lungs appear clear. The heart and mediastinal structures are unremarkable. Bony thorax appears normal. Visualized upper abdomen is unremarkable. IMPRESSION: No abnormalities noted. [employer] Work Phone: Radiology Study observation (narrative) [employer] Phone: XR CHEST PORTABLEOrdered By: Yoel Shabazz on 05-20-2021 [employer] Work Phone: Basic Metabolic Panel w/ Ref douglas to MGon 04-16-2021 Anion gap [Moles/Vol] 11 mmol/L 9 - 17 mmol/L [employer] Calcium [Mass/Vol] 9.8 mg/dL 8.6 - 10. 4 mg/dL [employer] Chloride [Moles/Vol] 99 mmol/L 98 - 10 7 mmol/L [employer] CO2 [Moles/Vol] 24 mmol/L 20 - 31 mmol/L [employer] Creatinine [Mass/Vol] 0.85 mg/dL 0.50 - 0.90 mg/dL [employer] GFR >60 >60 mL/min [place] GFR Non- >60 >60 mL/min [employer] Glucose [Mass/Vol] 97 mg/dL 70 - 99 mg/dL [employer] Interpretation and review of laboratory results Abnormal [employer] Potassium [Moles/Vol] 3.8 mmol/L 3.7 - 5.3 mmol/L [employer] Sodium [Moles/Vol] 134 mmol/L Low 135 - 144 mmol/L [employer] Urea nitrogen (BldV) [Mass/Vol] 9 mg/dL 6 - 20 mg/dL [employer] Urea nitrogen/Creatinine (Bld) [Mass ratio] 11 [employer] C-Reactive Proteinon 022 CRP [Mass/Vol] mg/L 0.0 - 5.0 mg/L [facility] CBC with Auto Differentialon 04-16-2021 Absolute Eos # 0.19 [facility] th Absolute Immature Granulocyte 0.03 [facility] Absolute Lymph # 2.01 [facility] [place] # 0.47 [facility] Basophils (Bld) [#/Vol] 0.05 10*3/uL [facility] Basophils/100 WBC (Bld) 1 % 0 - 2 % [facility] Eosinophils/100 WBC (Bld) 2 % 1 - 4 % [facility] Hematocrit (Bld) [Volume fraction] 44.1 % 36.3 - 47.1 % [facility] Hemoglobin.gastroint estinal spec 1 Ql (Stl) 14.9 g/dL 11.9 - 15.1 g/dL [facility] Immature granulocytes/100 WBC (Bld) 0 % 0 [facility] Interpretation and review of laboratory results Abnormal [facility] Lymphocytes/100 WBC (Bld) 22 % Low 24 - 43 % [facility] MCH (RBC) [Entitic mass] 29.2 pg 25.2 - 33.5 pg [facility] MCHC (RBC) [Mass/Vol] 33.8 g/dL 28.4 - 34.8 g/dL [facility] MCV (RBC) [Entitic vol] 86.5 fL 82.6 - 102.9 fL [facility] Monocytes/100 WBC (Bld) 5 % 3 - 12 % [facility] NRBC Automated 0.0 0.0 per 100 WBC [facility] Platelet distribution width (Bld) [Ratio] 11.4 % Low 11.8 - 14.4 % [facility] Platelet mean volume (Bld) [Entitic vol] 9.5 fL 8.1 - 13.5 fL [facility] Platelets (Bld) [#/Vol] 265 10*3/uL [facility] RBC (Bld) [#/Vol] 5.10 10*6/uL 3.95 - 5.11 m/uL [facility] Segmented neutrophils/100 WBC (Bld) 70 % High 36 - 65 % [facility] Segs [facility]ld[facility] [#/Vol] 9.1 10*3/uL [facility] CT ABDOMEN PELVIS WO CONTRAS T Additional [...] lumbosacral facets and at the sacroiliac joints. [facility] RIS CONSOLIDATED Michael Frausto - 04/16 EXAMINATION: [...] the liver. Previous cholecystectomy without biliary dilatation. [employer] Phone: Radiology Study observation (narrative) [employer] Phone: CT ABDOMEN PELVIS WO CONTRAS T Additional Contrast? NoneOrdered By: Michael Frausto on 04-16-2021 [employer] Phone: D-Dimer, Quantitativeon 04-05 [employer], Quant 0.37 [facility] Comment on above: When combined with [...] more prevalent in patients with distal DVT. [employer] Hepatic Function Panelon Albumin [Mass/Vol] 4.7 g/dL 3.5 - 5.2 g/dL [employer] Albumin/Globulin [Mass ratio] 1.8 {ratio} [employer] ALP (Bld) [Catalytic activity/Vol] 73 U/L 35 - 104 U/L [facility] ALT [Catalytic activity/Vol] 24 U/L 5 - 33 U/L [facility] AST [Catalytic activity/Vol] 14 U/L <32 [facility] Bilirubin [Mass/Vol] 0.35 mg/dL 0.3 - 1 .2 mg/dL [facility] Bilirubin, Indirect Can not be calculated 0.00 - 1.00 mg/dL [facility] Bilirubin.indirect [Mass/Vol] mg/dL <0.31 mg/dL [facility] Free PSA/Total PSA [Mass fraction] 7.3 g/dL 6.4 - 8.3 g/dL [facility] Laboratory - Chemistry and C hemistry - challengeon 04-16-2021 GFR/1.73 sq M.predicted MDRD (S/P/Bld) [Vol rate/Area] [facility] Comment on above: Average GFR for 30-3 9 years old: 107 mL/min/1.73sq m Chronic Kidney Disease: <60 mL/min/1.73sq m Kidney failure: <15 mL/min/1.73sq m eGFR calculated using average adult body mass. Additional eGFR calculator available at: http://www.[employer]/multiple_crcl_2012.htm Stage 1: Some kidney damage normal GFR Stage 2: Mild kidney damage GFR 60-89 Stage 3: Moderate kidney damage GFR 30-59 Stage 4: Severe kidney damage GFR 15-29 Stage 5: Severe kidney damage GFR <15 ESRD - chronic treatment by dialysis or transplant Lipaseon 04-16-2021 Lipase [Catalytic activity/Vol] 29 U/L 13 - 60 U/L [facility] Microscopic Urinalysison - [facility] Bacteria, UA 2+ Abnormal None [facility] Epithelial Cells UA 2 TO 5 [facility] Interpretation and review of laboratory results Abnormal [facility] RBC, UA 0 TO 2 [facility] WBC, UA 2 TO 5 [facility] No Panel Informationon 04-16 [facility] , Urineon 2 Beta HCG ( test) Ql (U) Negative NEGATIVE [facility] Comment on above: Specimens with hCG l evels near the threshold of the test (25 mIU/mL) may give a negative or indeterminate result. In such cases, another test should be performed with a new specimen in 48-72 hours. If early is suspected clinically in this setting, correlation with quantitative serum b-hCG level is suggested. [employer] has confirmed the use of plasma for this test. This has not been cleared or approved by the U.S. Food and Drug Administration. The FDA has determined that such clearance is not necessary. [facility] Sedimentation Rateon 022 Sed Rate 13 mm 0 - 20 mm [facility] Troponinon 04-16-2021 Troponin, High Sensitivity <6 0 - 14 ng/L [facility] Comment on above: High Sensitivity Troponin values cannot be compared with other Troponin methodologies. Patients with high levels of Biotin oral intake (i.e >5mg/day) may have falsely decreased Troponin levels. Samples collected within 8 hours of biotin intake may require additional information for diagnosis. [facility] Urinalysis with Reflex to Cu ltureon 04-16-2021 Bilirubin Urine Negative NEGATIVE [facility] Color, UA Yellow Yellow [facility] Glucose, Ur Negative NEGATIVE [facility] Interpretation and review of laboratory results Abnormal [facility] Ketones Ql (U) Negative NEGATIVE [facility] Leukocyte esterase Test strip Ql (U) TRACE Abnormal NEGATIVE [facility] Nitrite, Urine Negative NEGATIVE [facility] pH, UA 6.0 [facility] Protein, UA Negative NEGATIVE [facility] Specific [place], UA 1.015 [facility] Turbidity UA Clear Clear [facility] Urine Hgb Negative NEGATIVE [facility] Urobilinogen, Urine Normal Normal [facility] XR CHEST 1 VIEWon 04-16-2021 Clear lungs. No acut e cardiopulmonary abnormality. [facility] CONSOLIDATED EXAMINATION: ONE XRAY VIEW OF THE [...] normal limits. No significant thoracic osseous abnormality. [facility] CONSOLIDATED Christy Becerra MD - 04/16/2021 EXAMINATION: [...] IMPRESSION: Clear lungs. No acute cardiopulmonary abnormality. [employer] Phone: Radiology Study observation (narrative) [employer] Phone: XR CHEST 1 VIEWOrdered By: Arsenio Becerra on 04-16-2021 [employer] Phone: PULMONARY FUNCTION (450)on 0 03-07-2021 PULMONARY FUNCTION (450) [place] [id number] PULMONARY FUNCTION PATIENT NAME: LEANA TRAN : 1985 MED REC NO: [id number] ROOM: ACCOUNT NO: [id number] ADMIT DATE: 03/07/2021 PROVIDER: Moris Alvarado DATE [...] 79% of predicted. MORIS ALVARADO [id number] Doc#: [id number] CC: Normal [facility] [id number] 03-07-2021 SARS-CoV-2 (COVID-19) RNA CHRISTI+probe Ql (Unsp spec) Not detected Normal [facility] Comment on above: Result Comment: Rapid [...] management decisions. Fact sheet for Healthcare Providers: https://www.fda.gov/media/994929/download Fact sheet for Patients: https://www.fda.gov/media/203864/download Methodology: Isothermal Nucleic Acid Amplification Performed By: #### C OVRB #### [facility] [address] [place] [address] Hospitality Aide: Belén Dale MD Basic Metabolic Panel w/ Ref douglas to MGOrdered By: Araseli Barrett on 11-01-2020 Anion gap [Moles/Vol] 19 mmol/L High 9 - 17 mmol/L [facility] Work Phone: Calcium [Mass/Vol] 9.4 mg/dL 8.6 - 10. 4 mg/dL [employer] Phone: Chloride [Moles/Vol] 94 mmol/L Low 98 - 10 7 mmol/L [employer] Work Phone: CO2 [Moles/Vol] 20 mmol/L 20 - 31 mmol/L [employer] Work Phone: Creatinine [Mass/Vol] 1.2 mg/dL High 0.50 - 0.90 mg/dL [employer] Work Phone: GFR >60 >60 mL/min [employer] Phone: GFR Non- 51 mL/min Low >60 [employer] Phone: Glucose [Mass/Vol] 217 mg/dL High 70 - 99 mg/dL [employer] Phone: Interpretation and review of laboratory results Abnormal [employer] Phone: Potassium [Moles/Vol] 3.5 mmol/L Low 3.7 - 5.3 mmol/L [employer] Phone: Sodium [Moles/Vol] 133 mmol/L Low 135 - 144 mmol/L [employer] Phone: Urea nitrogen (BldV) [Mass/Vol] 10 mg/dL 6 - 20 mg/dL [employer] Work Phone: Urea nitrogen/Creatinine (Bld) [Mass ratio] 8 Low [employer] Work Phone: [employer] Work Phone: CBC Auto DifferentialOrdered By: Araseli Barrett on 11-01-2020 Absolute Eos # <0.03 [employer] [facility] Work Phone: Absolute Immature Granulocyte 0.33 High [employer] Work Phone: Absolute Lymph # 0.80 Low [employer] alth Work Phone: Absolute [place] # 0.42 [employer] Work Phone: Basophils (Bld) [#/Vol] 10*3/uL [employer] Work Phone: Basophils/100 WBC (Bld) 0 % 0 - 2 % [employer] Phone: Differential Type NOT REPORTED [employer] Phone: Eosinophils/100 WBC (Bld) 0 % Low 1 - 4 % [employer] Phone: Hematocrit (Bld) [Volume fraction] 42.8 % 36.3 - 47.1 % [employer] Phone: Hemoglobin.gastroint estinal spec 1 Ql (Stl) 14.7 g/dL 11.9 - 15.1 g/dL [employer] Phone: Immature granulocytes/100 WBC (Bld) 4 % High 0 [employer] Work Phone: Interpretation and review of laboratory results Abnormal [employer] Phone: Lymphocytes/100 WBC (Bld) 9 % Low 24 - 43 % [employer] Phone: MCH (RBC) [Entitic mass] 30.1 pg 25.2 - 33.5 pg [employer] Phone: MCHC (RBC) [Mass/Vol] 34.3 g/dL 28.4 - 34.8 g/dL [employer] Phone: MCV (RBC) [Entitic vol] 87.5 fL 82.6 - 102.9 fL [employer] Phone: Monocytes/100 WBC (Bld) 5 % 3 - 12 % [employer] Phone: NRBC Automated 0.0 0.0 per 100 WBC [employer] Phone: Platelet distribution width (Bld) [Ratio] 11.4 % Low 11.8 - 14.4 % [employer] Phone: Platelet Estimate NOT REPORTED [employer] Phone: Platelet mean volume (Bld) [Entitic vol] 9.4 fL 8.1 - 13.5 fL [employer] Phone: Platelets (Bld) [#/Vol] 207 10*3/uL [employer] Phone: RBC (Bld) [#/Vol] 4.89 10*6/uL 3.95 - 5.11 m/uL [employer] Phone: RBC (Bld) [#/Vol] NOT REPORTED [employer] Phone: Segmented neutrophils/100 WBC (Bld) 82 % High 36 - 65 % [employer] Phone: Segs Absolute 7.82 [employer] Work Phone: WBC (Bld) [#/Vol] 9.4 10*3/uL [employer] Work Phone: WBC (Bld) [#/Vol] NOT REPORTED [employer] Phone: [employer] Phone: D-Dimer, QuantitativeOrdered By: Araseli Barrett on 11-01-2020 [employer], Quant <0.27 [employer] Work Phone: Comment on above: When combined [...] more prevalent in patients with distal DVT. [employer] Phone: Laboratory - Chemistry and C hemistry - challengeOrdered By: Araseli Barrett on 11-01-2020 GFR/1.73 sq M.predicted MDRD (S/P/Bld) [Vol rate/Area] [employer] Phone: Comment on above: Average GFR for 30-3 9 years old: 107 mL/min/1.73sq m Chronic Kidney Disease: <60 mL/min/1.73sq m Kidney failure: <15 mL/min/1.73sq m eGFR calculated using average adult body mass. Additional eGFR calculator available at: http://www.[employer]/multiple_crcl_2012.htm Stage 1: Some kidney damage normal GFR Stage 2: Mild kidney damage GFR 60-89 Stage 3: Moderate kidney damage GFR 30-59 Stage 4: Severe kidney damage GFR 15-29 Stage 5: Severe kidney damage GFR <15 ESRD - chronic treatment by dialysis or transplant MagnesiumOrdered By: Araseli Barrett on 11-01-2020 Magnesium [Mass/Vol] 1.6 mg/dL 1.6 - 2 .6 mg/dL [employer] Phone: [employer] Phone: TroponinOrdered By: Araseli Barrett on 11-01-2020 Troponin Interp NOT REPORTED [employer] Work Phone: Troponin T NOT REPORTED <0.03 ng/mL [employer] Phone: Troponin, High Sensitivity <6 0 - 14 ng/L [employer] Phone: Comment on above: High Sensitivity Troponin values cannot be compared with other Troponin methodologies. Patients with high levels of Biotin oral intake (i.e >5mg/day) may have falsely decreased Troponin levels. Samples collected within 8 hours of biotin intake may require additional information for diagnosis. [employer] Phone: XR CHEST PORTABLEOrdered By: Araseli Barrett on 11-01-2020 Negative chest. [facility] Work Phone: EXAMINATION: ONE XRA Y VIEW OF THE CHEST 11/01/2020 2:31 pm COMPARISON: 12/08/2014 HISTORY: ORDERING SYSTEM PROVIDED HISTORY: cough FINDINGS: The lungs are without acute focal process. No effusion or pneumothorax. The cardiomediastinal silhouette is normal. The osseous structures are intact without acute process. [employer] Phone: Oswaldo, Mhpn Incoming R adiant Results From [facility] - 11/01/2020 2:41 PM EDT EXAMINATION: ONE XRAY VIEW OF THE CHEST 11/01/2020 2:31 pm COMPARISON: 12/08/2014 HISTORY: ORDERING SYSTEM PROVIDED HISTORY: cough FINDINGS: The lungs are without acute focal process. No effusion or pneumothorax. The cardiomediastinal silhouette is normal. The osseous structures are intact without acute process. IMPRESSION: Negative chest. [employer] Phone: [employer] Phone: [facility] 09-15-2020 [employer] [facility] [employer] [facility] Telephone (NEADFV) LEANA TRAN ([id number]) 1985 F Date Time Provider Department 09/15/20 LIS MORAESFV During your visit today, we recorded the following information about you: Demi Hazel [facility] 09/15/2020 4:44 PM Signed Received MRI Brain report by fax from [facility]. Scanned to patient's chart. Savanna Juarez [...] Encounter Status:Closed by DEMI JOHNSON on 11/17/20 [facility] 09-06-2020 [facility] Office Visit (NEADFV ) LEANA TRAN ([id number]) 1985 F Date Time Provider Department 09/06/20 2:00 PM LIS MORAES During your visit today, we recorded the following information about you: Temperature Pulse Blood pressure Weight 97.8 degrees 67/minute 112/73 102.1 kg Height 1.626 m Lis Moraes MD 09/06/2020 3:10 PM Signed PROGRESS NOTE- HEADACHE SERVICE DATE: September 06, 2020 Location: [place] Participants: patient and provider Requesting Provider: self [...] Contrast [Con (more content not included)... Normal [facility] Vital Signs Date Time Vital Sign Value Performing Clinician Facility 05-08-2023 08:47-0400 Body mass index (BMI) [Ratio] 36.9 kg/m2 Sarah Best INDUSTRIAL AUTOMATION ENGINEER-RIFLE CASE REPAIRER Work Phone: [facility] 05-08-2023 08:47-0400 Body weight 97.52 kg Sarah Best INDUSTRIAL AUTOMATION ENGINEER-RIFLE CASE REPAIRER Work Phone: [facility] 05-08-2023 08:47-0400 Diastolic blood pressure 87 mm[Hg] Sarah Best INDUSTRIAL AUTOMATION ENGINEER-RIFLE CASE REPAIRER Work Phone: [facility] 05-08-2023 08:47-0400 Heart rate 63 /min Sarah Best INDUSTRIAL AUTOMATION ENGINEER-RIFLE CASE REPAIRER Work Phone: [facility] 05-08-2023 08:47-0400 Systolic blood pressure 134 mm[Hg] Sarah Best INDUSTRIAL AUTOMATION ENGINEER-RIFLE CASE REPAIRER Work Phone: [facility] 10-02-2022 09:29-0400 Body height 162.6 cm Fuentes Amaral MD Work Phone: 10-02-2022 09:29-0400 Body temperature 97.7 [degF] Fuentes Amaral MD Work Phone: 10-02-2022 09:29-0400 Body weight 100.15 kg Fuentes Amaral MD Work Phone: 10-02-2022 09:29-0400 Diastolic blood pressure 79 mm[Hg] Fuentes Amaral MD Work Phone: 10-02-2022 09:29-0400 Heart rate 58 /min Fuentes Amaral MD Work Phone: 10-02-2022 09:29-0400 Respiratory rate 16 /min Fuentes Amaral MD Work Phone: 10-02-2022 09:29-0400 SaO2% (BldA) [Mass fraction] 99 % Fuentes Amaral MD Work Phone: 10-02-2022 09:29-0400 Systolic blood pressure 140 mm[Hg] Fuentes Amaral MD Work Phone: 09-05-2022 08:23-0400 Blood Pressure Location LORAINEJEANETTE BURNHAM [facility] 09-05-2022 08:23-0400 Diastolic blood pressure 79 mm[Hg] LORAINE TEJ [facility] 09-05-2022 08:23-0400 Heart rate 60 /min LORAINE BURNHAM [facility] 09-05-2022 08:23-0400 Systolic blood pressure 133 mm[Hg] LORAINE BURNHAM [facility] 04-03-2022 10:39-0500 Body height 162.6 cm Fuentes Amaral MD Work Phone: 04-03-2022 10:39-0500 Body temperature 97.9 [degF] Fuentes Amaral MD Work Phone: 04-03-2022 10:39-0500 Body weight 99.34 kg Fuentes Amaral MD Work Phone: 04-03-2022 10:39-0500 Diastolic blood pressure 65 mm[Hg] Fuentes Amaral MD Work Phone: 04-03-2022 10:39-0500 Heart rate 74 /min Fuentes Amaral MD Work Phone: 04-03-2022 10:39-0500 Respiratory rate 16 /min Fuentes Amaral MD Work Phone: 04-03-2022 10:39-0500 SaO2% (BldA) [Mass fraction] 98 % Fuentes Amaral MD Work Phone: 04-03-2022 10:39-0500 Systolic blood pressure 147 mm[Hg] Fuentes Amaral MD Work Phone: 02-28-2022 08:30-0500 Blood Pressure Location LORAINE BURNHAM [facility] 02-28-2022 08:30-0500 Diastolic blood pressure 83 mm[Hg] LORAINE TEJ [facility] 02-28-2022 08:30-0500 Heart rate 74 /min LORAINE TEJ [facility] 02-28-2022 08:30-0500 Respiratory rate 16 /min LORAINE TEJ [facility] 02-28-2022 08:30-0500 Systolic blood pressure 121 mm[Hg] LORAINE TEJ [facility] 02-10-2022 14:07-0500 Body height 162.6 cm Fuentes Amaral MD Work Phone: 02-10-2022 14:07-0500 Body temperature 97.9 [degF] Fuentes Amaral MD Work Phone: 02-10-2022 14:07-0500 Body weight 98.25 kg Fuentes Amaral MD Work Phone: 02-10-2022 14:07-0500 Diastolic blood pressure 59 mm[Hg] Fuentes Amaral MD Work Phone: 02-10-2022 14:07-0500 Heart rate 97 /min Fuentes Amaral MD Work Phone: 02-10-2022 14:07-0500 Respiratory rate 16 /min Fuentes Amaral MD Work Phone: 02-10-2022 14:07-0500 SaO2% (BldA) [Mass fraction] 99 % Fuentes Amaral MD Work Phone: 02-10-2022 14:07-0500 Systolic blood pressure 124 mm[Hg] Fuentes Amaral MD Work Phone: 2021 08:48-0500 Blood Pressure Location LORAINE BURNHAM [facility] 2021 08:48-0500 Diastolic blood pressure 77 mm[Hg] LORAINE TEJ [facility] 2021 08:48-0500 Heart rate 81 /min LORAINE TEJ [facility] 2021 08:48-0500 Systolic blood pressure 118 mm[Hg] LORAINE BURNHAM [facility] 11-18-2021 13:44-0400 Body height 162.6 cm Fuentes Amaral MD Work Phone: 11-18-2021 13:44-0400 Body temperature 97.81 [degF] Fuentes Amaral MD Work Phone: 11-18-2021 13:44-0400 Body weight 101.24 kg Fuentes Amaral MD Work Phone: 11-18-2021 13:44-0400 Diastolic blood pressure 73 mm[Hg] Fuentes Amaral MD Work Phone: 11-18-2021 13:44-0400 Heart rate 66 /min Fuenets Amaral MD Work Phone: 11-18-2021 13:44-0400 Respiratory rate 16 /min Fuentes Amaral MD Work Phone: 11-18-2021 13:44-0400 SaO2% (BldA) [Mass fraction] 100 % Fuentes Amaral MD Work Phone: 11-18-2021 13:44-0400 Systolic blood pressure 121 mm[Hg] Fuentes Amaral MD Work Phone: 11-03-2021 10:37-0400 Body height 162.6 cm Fuentes Amaral MD Work Phone: 11-03-2021 10:37-0400 Body temperature 97.59 [degF] Fuentes Amaral MD Work Phone: 11-03-2021 10:37-0400 Body weight 99.97 kg Fuentes Amaral MD Work Phone: 11-03-2021 10:37-0400 Diastolic blood pressure 63 mm[Hg] Fuentes Amaral MD Work Phone: 11-03-2021 10:37-0400 Heart rate 59 /min Fuentes Amaral MD Work Phone: 11-03-2021 10:37-0400 Respiratory rate 16 /min Fuentes Amaral MD Work Phone: 11-03-2021 10:37-0400 SaO2% (BldA) [Mass fraction] 99 % Fuentes Amaral MD Work Phone: 11-03-2021 10:37-0400 Systolic blood pressure 120 mm[Hg] Fuentes Amaral MD Work Phone: 09-27-2021 08:00-0400 Body height 162.6 cm [facility] [place] Work Phone: 09-27-2021 08:00-0400 Body weight 99.79 kg [facility] [place] Work Phone: 09-21-2021 15:37-0400 Body height 160 cm Ruth Villaseñor MD Work Phone: 09-21-2021 15:37-0400 Body temperature 97.5 [degF] Ruth Villaseñor MD Work Phone: 09-21-2021 15:37-0400 Body weight 100.61 kg Ruth Villaseñor MD Work Phone: 09-21-2021 15:37-0400 Diastolic blood pressure 72 mm[Hg] Ruth Villaseñor MD Work Phone: 09-21-2021 15:37-0400 Heart rate 72 /min Ruth Villaseñor MD Work Phone: 09-21-2021 15:37-0400 SaO2% (BldA) [Mass fraction] 97 % Ruth Villaseñor MD Work Phone: 09-21-2021 15:37-0400 Systolic blood pressure 131 mm[Hg] Ruth Villaseñor MD Work Phone: 09-19-2021 13:59-0400 Body temperature 98.29 [degF] Landen Clark INDUSTRIAL AUTOMATION ENGINEER.RIFLE CASE REPAIRER Work Phone: 09-19-2021 13:59-0400 Body weight 99.79 kg Landen Clark INDUSTRIAL AUTOMATION ENGINEER.RIFLE CASE REPAIRER Work Phone: 09-19-2021 13:59-0400 Diastolic blood pressure 53 mm[Hg] Landen Clark INDUSTRIAL AUTOMATION ENGINEER.RIFLE CASE REPAIRER Work Phone: 09-19-2021 13:59-0400 Heart rate 70 /min Landen Clark INDUSTRIAL AUTOMATION ENGINEER.RIFLE CASE REPAIRER Work Phone: 09-19-2021 13:59-0400 Respiratory rate 18 /min Landen Clark INDUSTRIAL AUTOMATION ENGINEER.RIFLE CASE REPAIRER Work Phone: 09-19-2021 13:59-0400 SaO2% (BldA) [Mass fraction] 98 % Landen Clark INDUSTRIAL AUTOMATION ENGINEER.RIFLE CASE REPAIRER Work Phone: 09-19-2021 13:59-0400 Systolic blood pressure 128 mm[Hg] Landen Clark INDUSTRIAL AUTOMATION ENGINEER.RIFLE CASE REPAIRER Work Phone: 09-05-2021 15:55-0400 Diastolic blood pressure 50 mm[Hg] Christine Abraham DO Work Phone: [employer] 09-05-2021 15:55-0400 Heart rate 103 /min Christine Abraham DO Work Phone: [facility] [employer] 09-05-2021 15:55-0400 Respiratory rate 28 /min Christine Abraham DO Work Phone: [facility] [employer] 09-05-2021 15:55-0400 SaO2% (BldA) [Mass fraction] 96 % Christine Abraham DO Work Phone: [employer] 09-05-2021 15:55-0400 Systolic blood pressure 115 mm[Hg] Christine Abraham DO Work Phone: [employer] 09-05-2021 13:29-0400 Body height 162.6 cm Christine Abraham DO Work Phone: [employer] 09-05-2021 13:29-0400 Body mass index (BMI) [Ratio] 37.25 kg/m2 Christine Abraham DO Work Phone: [facility] 09-05-2021 13:29-0400 Body temperature 98.2 [degF] Christine Abraham DO Work Phone: [facility] 09-05-2021 13:29-0400 Body weight 98.43 kg Christine Abraham DO Work Phone: [facility] SYSTEM 08-15-2021 08:54-0400 Body height 162.6 cm Berlin Avila III, MD Work Phone: 08-15-2021 08:54-0400 Body weight 98.84 kg Berlin Avila III, MD Work Phone: 08-12-2021 10:00-0400 Body height 162.6 cm Perennial [employer] Manager Work Phone: 08-12-2021 10:00-0400 Body weight 98 kg Perennial House Manager Work Phone: 08-12-2021 10:00-0400 Diastolic blood pressure 72 mm[Hg] Perennial House Manager Work Phone: 08-12-2021 10:00-0400 Heart rate 79 /min Perennial House Manager Work Phone: 08-12-2021 10:00-0400 Systolic blood pressure 108 mm[Hg] Perennial House Manager Work Phone: 07-25-2021 09:30-0400 Body height 162.6 cm Cindy Rushing MD Work Phone: 07-25-2021 09:30-0400 Body temperature 97.2 [degF] Cindy Rushing MD Work Phone: 07-25-2021 09:30-0400 Body weight 97.48 kg Cindy Rushing MD Work Phone: 07-25-2021 09:30-0400 Diastolic blood pressure 62 mm[Hg] Cindy Rushing MD Work Phone: 07-25-2021 09:30-0400 Heart rate 83 /min Cindy Rushing MD Work Phone: 07-25-2021 09:30-0400 Respiratory rate 14 /min Cindy Rushing MD Work Phone: 07-25-2021 09:30-0400 SaO2% (BldA) [Mass fraction] 99 % Cindy Rushing MD Work Phone: 07-25-2021 09:30-0400 Systolic blood pressure 104 mm[Hg] Cindy Rushing MD Work Phone: 07-22-2021 14:12-0400 Body height 162.6 cm Yan Bass MD Work Phone: 07-22-2021 14:12-0400 Body temperature 97.5 [degF] Yan Bass MD Work Phone: 07-22-2021 14:12-0400 Body weight 97.98 kg Yan Bass MD Work Phone: 07-22-2021 14:12-0400 Diastolic blood pressure 79 mm[Hg] Yan Bass MD Work Phone: 07-22-2021 14:12-0400 Heart rate 71 /min Yan Bass MD Work Phone: 07-22-2021 14:12-0400 Respiratory rate 16 /min Yan Bass MD Work Phone: 07-22-2021 14:12-0400 SaO2% (BldA) [Mass fraction] 97 % Yan Bass MD Work Phone: 07-22-2021 14:12-0400 Systolic blood pressure 129 mm[Hg] Yan Bass MD Work Phone: 07-21-2021 13:36-0400 Respiratory rate 20 /min Sai Perez MD Work Phone: 07-21-2021 13:36-0400 SaO2% (BldA) [Mass fraction] 100 % Sai Perez MD Work Phone: 07-21-2021 13:29-0400 Diastolic blood pressure 67 mm[Hg] Sai Perez MD Work Phone: 07-21-2021 13:29-0400 Heart rate 62 /min Sai Perez MD Work Phone: 07-21-2021 13:29-0400 Systolic blood pressure 130 mm[Hg] Sai Perez MD Work Phone: 07-14-2021 10:40-0400 Diastolic blood pressure 75 mm[Hg] Aldo Ann MD Work Phone: 07-14-2021 10:40-0400 Heart rate 74 /min Aldo Ann MD Work Phone: 07-14-2021 10:40-0400 SaO2% (BldA) [Mass fraction] 98 % Aldo Ann MD Work Phone: 07-14-2021 10:40-0400 Systolic blood pressure 128 mm[Hg] Aldo Ann MD Work Phone: 07-06-2021 12:39-0400 Body height 162.6 cm Tracee Mcintyre MD Work Phone: 07-06-2021 12:39-0400 Body weight 97.52 kg Tracee Mcintyre MD Work Phone: 07-06-2021 12:39-0400 Diastolic blood pressure 68 mm[Hg] Tracee Mcintyre MD Work Phone: 07-06-2021 12:39-0400 Heart rate 61 /min Tracee Mcintyre MD Work Phone: 07-06-2021 12:39-0400 Respiratory rate 16 /min Tracee Mcintyre MD Work Phone: 07-06-2021 12:39-0400 SaO2% (BldA) [Mass fraction] 99 % Tracee Mcintyre MD Work Phone: 07-06-2021 12:39-0400 Systolic blood pressure 111 mm[Hg] Tracee Mcintyre MD Work Phone: 07-01-2021 10:02-0400 Body height 162.6 cm Yan Bass MD Work Phone: 07-01-2021 10:02-0400 Body temperature 97.59 [degF] Yan Bass MD Work Phone: 07-01-2021 10:02-0400 Body weight 97.98 kg Yan Bass MD Work Phone: 07-01-2021 10:02-0400 Diastolic blood pressure 97 mm[Hg] Yan Bass MD Work Phone: 07-01-2021 10:02-0400 Heart rate 87 /min Yan Bass MD Work Phone: 07-01-2021 10:02-0400 Respiratory rate 16 /min Yan Bass MD Work Phone: 07-01-2021 10:02-0400 SaO2% (BldA) [Mass fraction] 99 % Yan Bass MD Work Phone: 07-01-2021 10:02-0400 Systolic blood pressure 138 mm[Hg] Yan Bass MD Work Phone: 06-27-2021 11:45-0400 Diastolic blood pressure 70 mm[Hg] Peter Knight APRN.CNP Work Phone: 06-27-2021 11:45-0400 Heart rate 96 /min Peter Knight INDUSTRIAL AUTOMATION ENGINEER.RIFLE CASE REPAIRER Work Phone: 06-27-2021 11:45-0400 Respiratory rate 20 /min Peter Knight INDUSTRIAL AUTOMATION ENGINEER.RIFLE CASE REPAIRER Work Phone: 06-27-2021 11:45-0400 SaO2% (BldA) [Mass fraction] 99 % Peter Knight INDUSTRIAL AUTOMATION ENGINEER.RIFLE CASE REPAIRER Work Phone: 06-27-2021 11:45-0400 Systolic blood pressure 147 mm[Hg] Peter Knight INDUSTRIAL AUTOMATION ENGINEER.RIFLE CASE REPAIRER Work Phone: 06-27-2021 11:30-0400 Body temperature 98.1 [degF] Peter Knight APRN.RIFLE CASE REPAIRER Work Phone: 06-27-2021 10:53-0400 Body height 162.6 cm Peter Knight APRN.RIFLE CASE REPAIRER Work Phone: 06-27-2021 10:53-0400 Body weight 95.71 kg Peter Knight APRN.[facility] Work Phone: 06-21-2021 01:00-0400 Diastolic blood pressure 84 mm[Hg] Sean Andes DO Work Phone: [facility] 06-21-2021 01:00-0400 Heart rate 87 /min Sean Andes DO Work Phone: [facility] 06-21-2021 01:00-0400 Respiratory rate 21 /min Sean Andes DO Work Phone: [facility] [employer] 06-21-2021 01:00-0400 SaO2% (BldA) [Mass fraction] 90 % Sean Andes DO Work Phone: [facility] [employer] 06-21-2021 01:00-0400 Systolic blood pressure 121 mm[Hg] Sean Andes DO Work Phone: [facility] [employer] 06-21-2021 00:04-0400 Body temperature 98.6 [degF] Sean Moses DO Work Phone: [facility] 06-14-2021 09:07-0400 Body height 162.6 cm Jackelyn Marques MD Work Phone: 06-14-2021 09:07-0400 Body weight 96.66 kg Jackelyn Marques MD Work Phone: 06-14-2021 09:07-0400 Diastolic blood pressure 80 mm[Hg] Jackelyn Marques MD Work Phone: 06-14-2021 09:07-0400 Heart rate 71 /min Jackelyn Marques MD Work Phone: 06-14-2021 09:07-0400 Systolic blood pressure 126 mm[Hg] Jackelyn Marques MD Work Phone: 06-10-2021 09:45-0400 Body height 162.6 cm Yan Bass MD Work Phone: 06-10-2021 09:45-0400 Body temperature 97.39 [degF] Yan Bass MD Work Phone: 06-10-2021 09:45-0400 Body weight 97.61 kg Yan Bass MD Work Phone: 06-10-2021 09:45-0400 Diastolic blood pressure 50 mm[Hg] Yan Bass MD Work Phone: 06-10-2021 09:45-0400 Heart rate 64 /min Yan Bass MD Work Phone: 06-10-2021 09:45-0400 Respiratory rate 16 /min Yan Bass MD Work Phone: 06-10-2021 09:45-0400 SaO2% (BldA) [Mass fraction] 100 % Yan Bass MD Work Phone: 06-10-2021 09:45-0400 Systolic blood pressure 124 mm[Hg] Yan Bass MD Work Phone: 06-04-2021 19:43-0400 Diastolic blood pressure 49 mm[Hg] Brian Santana MD Work Phone: [facility] 06-04-2021 19:43-0400 Heart rate 69 /min Brian Santana MD Work Phone: [facility] 06-04-2021 19:43-0400 Respiratory rate 23 /min Brian Santana MD Work Phone: [facility] 06-04-2021 19:43-0400 SaO2% (BldA) [Mass fraction] 92 % Brian Santana MD Work Phone: [facility] 06-04-2021 19:43-0400 Systolic blood pressure 106 mm[Hg] Brian Santana MD Work Phone: [facility] 06-04-2021 16:26-0400 Body mass index (BMI) [Ratio] 36.22 kg/m2 Brian Santana MD Work Phone: [facility] 06-04-2021 16:26-0400 Body temperature 98.4 [degF] Brian Santana MD Work Phone: [facility] 06-04-2021 16:26-0400 Body weight 95.71 kg Brian Santana MD Work Phone: [facility] 05-20-2021 18:43-0400 Diastolic blood pressure 51 mm[Hg] Cas Dowell MD Work Phone: [facility] 05-20-2021 18:43-0400 Heart rate 53 /min Cas Dowell MD Work Phone: [facility] 05-20-2021 18:43-0400 Respiratory rate 16 /min Cas Dowell MD Work Phone: [facility] 05-20-2021 18:43-0400 SaO2% (BldA) [Mass fraction] 96 % Cas Dowell MD Work Phone: [employer] 05-20-2021 18:43-0400 Systolic blood pressure 112 mm[Hg] Cas Dowell MD Work Phone: [facility] 05-20-2021 12:55-0400 Body height 162.6 cm Cas Dowell MD Work Phone: [facility] 05-20-2021 12:55-0400 Body mass index (BMI) [Ratio] 36.22 kg/m2 Cas Dowell MD Work Phone: [facility] 05-20-2021 12:55-0400 Body weight 95.71 kg Cas Dowell MD Work Phone: [facility] 04-16-2021 19:39-0500 Body temperature 97.39 [degF] Mike Stevenson MD [facility] 04-16-2021 19:39-0500 Diastolic blood pressure 89 mm[Hg] Mike Stevenson MD [facility] 04-16-2021 19:39-0500 Heart rate 55 /min Mike Stevenson MD [facility] 04-16-2021 19:39-0500 Respiratory rate 15 /min Mike Stevenson MD [facility] 04-16-2021 19:39-0500 SaO2% (BldA) [Mass fraction] 98 % Mike Stevenson MD [facility] 04-16-2021 19:39-0500 Systolic blood pressure 131 mm[Hg] Mike Stevenson MD [facility] 11-01-2020 17:24-0400 SaO2% (BldA) [Mass fraction] 94 % Araseli Barrett MD Work Phone: [employer] Work Phone: 11-01-2020 16:20-0400 Diastolic blood pressure 73 mm[Hg] Araseli Barrett MD Work Phone: [employer] Work Phone: 11-01-2020 16:20-0400 Systolic blood pressure 142 mm[Hg] Araseli Barrett MD Work Phone: [employer] Work Phone: 11-01-2020 15:48-0400 Body temperature 101.61 [degF] Araseli Barrett MD Work Phone: [employer] Work Phone: 11-01-2020 13:32-0400 Body mass index (BMI) [Ratio] 37.76 kg/m2 Araseli Barrett MD Work Phone: [employer] Work Phone: 11-01-2020 13:32-0400 Body weight 99.79 kg Araseli Barrett MD Work Phone: [employer] Work Phone: 11-01-2020 13:32-0400 Heart rate 91 /min Araseli Barrett MD Work Phone: [employer] Work Phone: 11-01-2020 13:32-0400 Respiratory rate 22 /min Araseli Barrett MD Work Phone: [employer] Work Phone: 06-13-2020 05:10-0400 Diastolic blood pressure 73 mm[Hg] Kody Cm MD Work Phone: [employer] Work Phone: 06-13-2020 05:10-0400 Systolic blood pressure 131 mm[Hg] Kody Cm MD Work Phone: [employer] Work Phone: 06-13-2020 05:09-0400 Body temperature 96.8 [degF] Kody Cm MD Work Phone: [employer] Work Phone: 06-13-2020 05:09-0400 Heart rate 74 /min Kody Cm MD Work Phone: [employer] Work Phone: 06-13-2020 05:09-0400 Respiratory rate 12 /min Kody Cm MD Work Phone: [employer] Work Phone: 06-13-2020 05:09-0400 SaO2% (BldA) [Mass fraction] 97 % Kody Cm MD Work Phone: [employer] Work Phone: Encounters Encounter Date Encounter Type Care Provider Facility Start: 09-05-2023 ambulatory ABIEL MATTHEW [facility] Start: 08-22-2023 End: 08-22-2023 ambulatory RUBENS TIM Not Available Start: 07-30-2023 ambulatory STEPHON CRONIN [facility] Start: 07-10-2023 End: 07-10-2023 ambulatory JODI MAZARIEGOS Not Available Start: 05-08-2023 End: 05-08-2023 ambulatory SARAH BEST [facility] Start: 05-08-2023 End: 05-08-2023 Office outpatient visit 15 minutes Sarah Best INDUSTRIAL AUTOMATION ENGINEER-RIFLE CASE REPAIRER Work Phone: [facility] Comment on above: 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) Start: 04-09-2023 End: 04-09-2023 ambulatory CAS DOWELL Not Available Start: 03-28-2023 End: 03-29-2023 ambulatory Phillip Thomas MD Facility:[facility] Start: 03-12-2023 Orders Only Cas Horner Work Phone: [facility] Comment on above: Moderate persistent asthma without complication (CMS/HCC) (Primary Dx) Start: 02-13-2023 End: 02-13-2023 ambulatory Tesfaye R NILL Facility: [facility] Start: 02-04-2023 Refill Stella BUSTOS RN-RIFLE CASE REPAIRER Work Phone: [facility] Start: 01-31-2023 End: 01-31-2023 ambulatory Tesfaye R NILL Facility:[id number] Start: 01-24-2023 End: 01-25-2023 ambulatory Phillip Thomas MD [facility] Start: 01-16-2023 End: 01-16-2023 ambulatory CAS DOWELL Not Available Start: 01-10-2023 ambulatory MACRINA WADSWORTH [facility] Start: 01-04-2023 End: 01-04-2023 ambulatory CAS DOWELL Facility:[facility] Start: 01-01-2023 End: 01-01-20[facility] Start: 12-19-2022 ambulatory Tesfaye MASON Facility:[facility] Start: 12-18-2022 End: 12-18-2022 Emergency department patient visit CAS DOWELL [facility] Start: 12-18-2022 ambulatory Tesfaye MASON Facility:[facility] Start: 11-29-2022 End: 11-30-2022 ambulatory Phillip Thomas MD Facility[facility] Start: 11-14-2022 End: 11-14-2022 ambulatory MACRINA WADSWORTH [facility] Start: 10-18-2022 End: 10-19-2022 ambulatory Phillip Thomas MD [facility] Start: 10-02-2022 End: 10-02-2022 ambulatory CAS DOWELL Facility:[facility] Start: 10-02-2022 End: 10-02-2022 Office outpatient visit 15 minutes Fuentes Amaral MD Work Phone: Hematology/Oncology Comment on above: 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HCC) (Primary Dx); Bleeding disorder (HCC); Coagulopathy (HCC) Start: 09-05-2022 End: 09-05-2022 Patient encounter procedure LORAINE BURNHAM [facility] Start: 06-26-2022 End: 06-27-2022 ambulatory Phillip Thomas MD Facility[facility] Start: 06-15-2022 End: 06-16-[address] CAS DOWELL Facility: Start: 06-05-2022 End: 06-06-[address] DOCTOR CONN Facility: Start: 05-03-2022 Telephone encounter Meena peter MD Work Phone: Neurology Comment on above: PAP Therapy Follow U p (DOWNLOAD) Start: 04-27-2022 End: 04-27-2022 ambulatory CAS DOWELL Facility:[facility] Start: 04-26-2022 End: 04-26-2022 ambulatory Bhargavi Saldana PA-C Work Phone: Neurology Comment on above: Migraine without aur a and without status migrainosus, not intractable (Primary Dx) Start: 04-26-2022 End: 04-26-2022 Telemedicine consultation with patient Bhargavi Saldana PA-C Work Phone: [facility] Start: 04-17-2022 End: 04-18-2022 [facility] Fuentes Amaral MD Work Phone: Hematology/Oncology Comment on above: 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HCC) (Primary Dx) Start: 04-10-2022 End: 04-10-2022 ambulatory MEENA GRISSOM Facility:[facility] Start: 04-03-2022 Telephone encounter Meena peter MD Work Phone: Neurology Comment on above: PAP Therapy Follow U p (NOT COMPLIANT NEEDS SD CHIP SENT TO DME ) Start: 04-03-2022 End: 04-03-2022 ambulatory CAS DOWELL Facility:[facility] Start: 04-03-2022 End: 04-03-2022 Office outpatient visit 15 minutes Fuentes Amaral MD Work Phone: Hematology/Oncology Comment on above: 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HCC) (Primary Dx); Bleeding disorder (HCC) Start: 03-29-2022 End: 03-30-2022 ambulatory FUENTES AMARAL [facility] Start: 03-21-2022 Telephone encounter Yancy Cook RN Hematology/Oncology Comment on above: Orders; Appointment Start: 03-16-2022 End: 03-17-2022 ambulatory FUENTES ABAURA [facility] Start: 02-28-2022 End: 02-28-2022 Patient encounter procedure LORAINE Dung COMBSRY [facility] Start: 02-27-2022 Patient Update Tesfaye Whitman [facility] Comment on above: Patient Update [...] 02-17-2022 End: 02-18-2022 ambulatory [facility] Start: 02-17-2022 End: 02-17-2022 Subsequent hospital visit by physician Cas Dowell MD Work Phone: [facility] Start: 02-16-2022 Telephone encounter Yancy Cook RN Hematology/Oncology Comment on above: Orders Start: 02-15-2022 End: 03-15-2022 ambulatory SHAIKH Janet JACOBSON Facility: Start: 02-13-2022 End: 02-14-2022 ambulatory CAS DOWELL Facility:[facility] Start: 02-13-2022 End: 02-13-2022 Patient encounter procedure Meena Grissom MD Work Phone: Neurology Comment on above: No-show for appointm ent (Primary Dx) Start: 02-13-2022 End: 02-13-2022 Telemedicine consultation with patient Meena Grissom MD Work Phone: [facility] Start: 02-10-2022 End: 02-10-2022 Visit (SP) Office Fuentes Amaral MD Work Phone: Hematology/Oncology Comment on above: 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HCC) (Primary Dx); Bleeding disorder (HCC) Start: 02-01-2022 Telephone encounter [facility] Work Phone: Neurology Comment on above: Appointment (Lauro horner Pap Therapy Follow Up-) Start: 01-30-2022 End: 01-30-2022 Emergency department patient visit CAS [facility] Start: 01-23-2022 End: 01-23-2022 Patient encounter procedure Marcell WALTERS [facility] Start: 01-16-2022 End: 01-16-2022 ambulatory Bhargavi Saldana PA-C Work Phone: Neurology Comment on above: Migraine without aur a and without status migrainosus, not intractable (Primary Dx) Start: 01-16-2022 End: 01-16-2022 Telemedicine consultation with patient Bhargavi Saldana PA-C Work Phone: [facility] Start: 01-08-2022 End: 01-11-2022 Evaluation and management of inpatient CHAYO CASILLAS [facility] Start: 01-07-2022 End: 01-07-2022 Emergency department patient visit [facility] Start: 01-01-2022 End: 01-02-2022 ambulatory CAS DOWELL Facility:[facility] Start: 12-24-2021 End: 12-25-[address] BELÉN ANDRADE Facility: Start: 2021 End: 2021 Patient encounter procedure LORAINE BURNHAM [facility] Start: 12-20-2021 Telephone encounter Juan Ramon olvera [facility] Work Phone: [facility] Comment on above: Results Start: 12-17-2021 Encounter for genera l adult medical examination without abnormal findings DR CAS DOWELL [facility] Start: 12-15-2021 Chart abstracting [facility] Work Phone: Neurology Start: 12-15-2021 End: 12-17-2021 ambulatory CAS DOWELL Facility:[facility] Start: 12-12-2021 End: 12-13-[address] [...] Start: 12-02-2021 End: 12-02-2021 ambulatory CAS DOWELL Facility:[facility] Start: 12-02-2021 End: 12-02-2021 Patient encounter [...] henrik m caregiver Farzaneh Steward RN [facility] Start: 11-18-2021 End: 11-18-2021 ambulatory CAS DOWELL Facility:[facility] Start: 11-18-2021 End: 11-18-2021 Visit (SP) Office Fuentes Amaral MD Work Phone: Hematology/Oncology Comment on above: Breast screening (Pr imary Dx); 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HCC) Start: 11-16-2021 End: 11-16-2021 Telephone encounter Meena Grissom MD Work Phone: Neurology Comment on above: 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 - O ther (Download) KATELIN on CPAP (Primary Dx); RLS (restless legs syndrome); Shift work sleep disorder; Sleep paralysis; 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; History of posttraumatic stress disorder (PTSD); Poor sleep pattern; Poor compliance with CPAP treatment Start: 11-16-2021 End: 11-16-2021 ambulatory CAS Guzman GRAYSON Facility:[facility] Start: 11-16-2021 End: 11-16-2021 Telemedicine consultation with patient Meena Grissom MD Work Phone: [facility] Start: 11-15-2021 Telephone encounter [facility] Work Phone: Neurology Comment on above: Appointment (Downloa d Pap Therapy Follow UP) Start: 11-14-2021 End: 11-14-[address] BELÉN ANDRADE Facility: Start: 11-10-2021 End: 11-11-2021 [facility] Fuentes Amaral MD Work Phone: Hematology/Oncology [...] Start: 10-31-2021 End: 10-31-2021 ambulatory SAI PEREZ Facility:[facility] Start: 10-27-2021 Telephone encounter Fuentes stewart MD Work Phone: Hematology/Oncology Comment on above: Lab Orders Start: 10-24-2021 End: 10-24-2021 ambulatory CINDY RUSHING Facility:[facility] Start: 10-24-2021 End: 10-24-2021 ambulatory Cindy Rushing MD Work Phone: Allergy Comment on above: Night sweats (Primar y Dx); Lymphadenopathy; Rash and nonspecific skin eruption; Allergic rhinitis, unspecified seasonality, unspecified trigger; Moderate persistent asthma without complication Start: 10-24-2021 End: 10-24-2021 Telemedicine consultation with patient Cindy Rushing MD Work Phone: [facility] Start: 10-20-2021 End: 10-20-2021 ambulatory Micheal Perez MD Work Phone: Cardiology Comment on above: Palpitations (Primar y Dx); Symptomatic bradycardia; Orthostatic lightheadedness; Diffuse pain; Blood pressure instability; Decreased activity tolerance; Orthostatic intolerance; Moderate persistent asthma without complication; Physical deconditioning Start: 10-20-2021 End: 10-20-2021 Telemedicine consultation with patient Micheal Perez MD Work Phone: [facility] Start: 10-19-2021 End: 10-19-2021 ambulatory BHARGAVI SALDANA Facility:[facility] Start: 10-19-2021 End: 10-19-2021 ambulatory Bhargavi Saldana PA-C Work Phone: Neurology Comment on above: Chronic migraine wit hout aura, intractable, without status migrainosus (Primary Dx) Start: 10-19-2021 End: 10-19-2021 Telemedicine consultation with patient Bhargavi Gadiel HEREDIA Work Phone: [facility] Start: 10-19-2021 End: 10-20-[address] HUSAM KIM Facility: Start: 10-14-2021 End: 10-14-2021 ambulatory Judith Valdes PSYD Work Phone: Neurological J[facility] Comment on above: Depression, unspecif ied depression type (Primary Dx); Anxiety; Abnormal involuntary movement Start: 10-14-2021 End: 10-14-2021 Telemedicine consultation with patient Judith Valdes PSYD Work Phone: [facility] Start: 10-12-2021 End: 10-12-2021 ambulatory CAS DOWELL Facility:[facility] Start: 10-12-2021 End: 10-12-2021 ambulatory Ruth Villaseñor MD Work Phone: Rheumatology Comment on above: Malaise and fatigue (Primary Dx); Lymphadenopathy Start: 10-12-2021 End: 10-12-2021 Telemedicine consultation with patient Ruth Villaseñor MD Work Phone: [facility] Start: 09-30-2021 ambulatory Landen Clark APR N.RIFLE CASE REPAIRER Work Phone: Pulmonary Medicine Comment on above: Breast testing Start: 09-30-2021 End: 09-30-2021 Subsequent hospital visit by physician Xr Chest Main A21 Radiology Comment on above: History of COVID-19 [Z86.16] Start: 09-27-2021 End: 09-27-2021 ambulatory Pulm [place] Work Phone: Pulmonary Lab Comment on above: Spirometry Start: 09-27-2021 End: 09-27-2021 Patient encounter procedure [facility] [place] Work Phone: [facility] Start: 09-23-2021 ambulatory Landen Clark APR N.RIFLE CASE REPAIRER Work Phone: Pulmonary Medicine Comment on above: Breathing test Start: 09-22-2021 End: 09-23-2021 ambulatory Landen Clark APRN.RIFLE CASE REPAIRER Work Phone: Pulmonary Medicine Comment on above: Ct scan results Start: 09-22-2021 Telephone encounter Landen Clark APRN.MACY Work Phone: Pulmonary Medicine Comment on above: Results Start: 09-21-2021 End: 09-21-2021 Patient encounter procedure Ruth Villasñeor MD Work Phone: Rheumatology Comment on above: Bone pain (Primary D x); Malaise and fatigue; Lymphadenopathy Start: 09-21-2021 End: 09-22-[address] CAS DOWELL Facility:[facility] Start: 09-19-2021 End: 09-19-2021 Patient encounter procedure Landen Clark APRN.RIFLE CASE REPAIRER Work Phone: Pulmonary Medicine Comment on above: 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); History of COVID-19; SOB (shortness of breath); Chronic cough; Chest discomfort; Palpitation; CAVANAUGH (dyspnea on exertion); Dizziness; Near syncope; Night sweats; Orthopnea; Anxiety; Myalgia; Pain in joint, multiple sites; Mass of left axilla Start: 09-19-2021 Telephone encounter Landen Clark APRN.RIFLE CASE REPAIRER Work Phone: Pulmonary Medicine Comment on above: 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 - O ther Start: 09-16-2021 End: 09-16-2021 ambulatory Judith Valdes PSYD Work Phone: Neurological [facility] Comment on above: Depression, unspecif ied depression type (Primary Dx); Anxiety; Abnormal involuntary movement Start: 09-16-2021 End: 09-16-2021 Telemedicine consultation with patient Juidth Valdes PSYD Work Phone: [facility] Start: 09-05-2021 End: 09-05-2021 Emergency department patient visit Christine Abraham DO Work Phone: [facility] ED Comment on above: Allergic reaction, i nitial encounter (Primary Dx) Start: 08-30-2021 End: 08-30-2021 [facility] Ayaka Bright MD Work Phone: [facility] Comment on above: Long COVID (Primary Dx); Diffuse pain; Decreased activity tolerance; PTSD (post-traumatic stress disorder) CT scan results sent Start: 08-23-2021 Telephone encounter Shelbie Umaña PA-C Work Phone: General Surgery Comment on above: Results - Ct Start: 08-23-2021 End: 08-23-2021 ambulatory Peter Knight APRN.RIFLE CASE REPAIRER Work Phone: Neurology Comment on above: Diffuse pain (Primar y Dx); Decreased activity tolerance; Physical deconditioning; Orthostatic intolerance Start: 08-23-2021 End: 08-23-2021 Telemedicine consultation with patient Peter Antonia VACA.RIFLE CASE REPAIRER Work Phone: [facility] Start: 08-18-2021 ambulatory Mike Zayas MD Work Phone: [facility] Start: 08-18-2021 Patient encounter procedure Mike Zayas MD Work Phone: [facility] Start: 08-17-2021 ambulatory SAI PEREZ Facility: [facility] Start: 08-17-2021 End: 08-17-2021 Subsequent hospital visit by physician Echo [facility] Testing Comment on above: Symptomatic bradycar aziza [R00.1] Start: 08-16-2021 Orders Only Berlin Avila MD Work Phone: Radiology Comment on above: Chronic RLQ pain (Pr imary Dx) Start: 08-15-2021 Telephone encounter Jenni cassidy RN Work Phone: Home Delivery Comment on above: Insurance Authorizat ion (Emgality 120MG/ML syringes (migraine)) Start: 08-15-2021 End: 08-15-2021 Patient encounter procedure Berlin Avila MD Work Phone: General Surgery Comment on above: Chronic RLQ pain (Pr imary Dx); Diastasis recti Start: 08-12-2021 End: 08-12-2021 ambulatory Daniela Stewart PT Work Phone: [facility] Comment on above: Intractable chronic migraine without aura and without status migrainosus; Abnormal involuntary movement Start: 08-12-2021 End: 08-12-2021 Patient encounter procedure Perennial House Manager Work Phone: [facility] Comment on above: White coat syndrome with hypertension (Primary Dx) Start: 08-05-2021 End: 08-05-2021 ambulatory Bhargavi Saldana PA-C Work Phone: Neurology Comment on above: Chronic migraine wit hout aura, intractable, without status migrainosus (Primary Dx) Start: 08-05-2021 End: 08-05-2021 Telemedicine consultation with patient Bhargavi Saldana PA-C Work Phone: [facility] Start: 08-03-2021 End: 08-03-[address] RUBENS TIM . Facility: Start: 07-29-2021 End: 07-29-2021 ambulatory Judith Valdes PSYD Work Phone: Neurological [facility] Comment on above: Depression, unspecif ied depression type (Primary Dx); Anxiety; Intractable chronic migraine without aura and without status migrainosus; Abnormal involuntary movement Start: 07-29-2021 End: 07-29-2021 Telemedicine consultation with patient Judith Valdes PSYD Work Phone: [facility] Start: 07-25-2021 End: 07-25-2021 Patient [...] End: 07-18-2021 Patient encounter procedure Lab Lucas Castro Work Phone: Laboratory Medicine Comment on above: Screening for endocr ine disorder Start: 07-15-2021 End: 07-15-2021 [facility] Work Phone: [facility] Comment on above: Bleeding disorder (H CC) (Primary Dx); Coagulopathy (HCC); 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HCC) Start: 07-14-2021 End: 07-14-2021 Patient encounter procedure Aldo Ann MD Work Phone: Otolaryngology Comment on above: Allergy, initial enc ounter (Primary Dx); Headaches Start: 07-06-2021 End: 07-06-2021 Patient encounter procedure Tracee Mcintyre MD Work Phone: Neurological [facility] Comment on above: Intractable chronic migraine without [...] End: 06-27-2021 Patient encounter procedure Peter Knight APRN.CNP Work Phone: Neurology Comment on above: Worsening headaches (Primary Dx); Maxillary sinus cyst; Muscle spasms of lower extremity, unspecified laterality; Akathisia; Blurred vision; Chorea Start: 06-24-2021 End: 06-25-[address] VIKASH BECKHAM . Facility: Start: 06-22-2021 ambulatory Peter Knight APRN.CNP Work Phone: Neurology Comment on above: Legs Start: 06-20-2021 End: 06-21-2021 Emergency department patient visit Sean Aurelia MADRIGAL Work Phone: [facility] ED Comment on above: Spasm of muscle (Hannah bhumika Dx); Acute nonspecific chest pain with low risk of coronary artery disease Start: 06-16-2021 Telephone encounter Yan Bass MD Work Phone: Hematology/Oncology Comment on above: Results Start: 06-16-2021 ambulatory PETER KNIGHT Facility :[facility] Start: 06-14-2021 Telephone encounter Jackelyn Lewis i, [...] encounter procedure Autonomic 2 Neur Main [facility] Start: 06-13-2021 ambulatory Peter Knight APRN.RIFLE CASE REPAIRER Work Phone: Neurology Comment on above: Blood results Start: 06-10-2021 End: 06-10-2021 ambulatory Yan Bass MD Work Phone: Hematology/Oncology Comment on above: Coagulopathy (HCC) ( Primary Dx) Start: 06-10-2021 End: 06-10-2021 Patient encounter procedure Yan Bass MD Work Phone: [facility] Start: 06-08-2021 Chart abstracting Yan tran MD Work Phone: Hematology/Oncology Start: 06-04-2021 End: 06-04-2021 Emergency department patient visit Brian Santana MD Work Phone: [facility] ED Comment on above: Urticaria (Primary D x); Moderate persistent asthma with exacerbation Start: 05-31-2021 Telephone encounter Peter bermeo APRN.RIFLE CASE REPAIRER Work Phone: Neurology Comment on above: Received Outside Med ical Records ([facility]) Start: 05-20-2021 End: 05-20-2021 Emergency department patient visit Cas Dowell MD Work Phone: [facility] ED Comment on above: Chest pain, unspecif ied type (Primary Dx); Abdominal pain, acute, right lower quadrant Start: 04-16-2021 End: 04-16-2021 Emergency department patient visit Mike Stevenson MD [facility] ED Comment on above: Intractable nausea a nd vomiting (Primary Dx); Hydrosalpinx; Left ovarian cyst Start: 03-07-2021 End: 03-08-2021 ambulatory CAS ALEX BOLTONSilvia [facility] Start: 03-06-2021 End: 03-07-2021 ambulatory CAS DOWELL [facility] Start: 11-01-2020 End: 11-01-2020 Emergency department patient visit Araseli Barrtet MD Work Phone: [facility] ED Comment on above: COVID-19 (Primary Dx ) Start: 06-13-2020 End: 06-13-2020 Emergency department patient visit Kody mC MD Work Phone: [facility] Comment on above: Strain of lumbar reg ion, initial encounter (Primary Dx) Procedures Date Procedure Procedure Detail Performing Clinician Start: 05-08-2023 Follow-up visit Follow-up SARAH BEST Start: 01-04-2023 Adult depression screening assessment Stella AMINRIFLE CASE REPAIRER Work Phone: Start: 01-01-2023 Hemoglobin glycosylated a1c Cas Dowell MD Work Phone: Start: 02-17-2022 Assay of free thyroxine Akila Yao MD Work Phone: Start: 01-23-2022 Cystourethroscopy with dilation of urethral stricture LORAINE BURNHAM Start: 10-17-2021 Adult depression screening assessment Judith Valdes PSYD Work Phone: Start: 10-08-2021 Adult depression screening assessment Ruth Villaseñor MD Work Phone: Start: 09-30-2021 Radiologic exam chest 2 views Landen Clark APRN.RIFLE CASE REPAIRER Work Phone: Start: 09-27-2021 End: 09-27-2021 Co diffusing capacity Landen Clark APRN.CN P Work Phone: Start: 09-14-2021 Adult depression screening assessment Judith Valdes PSYD Work Phone: Start: 08-17-2021 Echo tthrc r-t 2d w/wom-mode compl spec&colr d Christy Santos MD Work Phone: Start: 08-17-2021 LVEF ECHO Sai Perez MD Work Phone: Start: 07-29-2021 Adult depression screening assessment [facility] Work Phone: Start: 07-18-2021 Adrenocorticotropic hormone acth Jackelyn Marques MD Work Phone: Start: 07-01-2021 Adrenocorticotropic hormone acth Jackelyn Marques MD Work Phone: Start: 06-29-2021 Adult depression screening assessment Yan Bass MD Work Phone: Start: 06-21-2021 Radiologic exam chest single view Sean [employer] DO Work Phone: Start: 06-21-2021 Basic metabolic panel calcium total Sean [facility] DO Work Phone: Start: 06-21-2021 Ecg routine ecg w/least 12 lds w/i&r Sean [facility] DO Work Phone: Start: 06-20-2021 Adult depression screening assessment Peter Knight INDUSTRIAL AUTOMATION ENGINEER.RIFLE CASE REPAIRER Work Phone: Start: 06-04-2021 RESPIRATORY CARE EVALUATION ONLY Brian Santana MD Work Phone: Start: 05-20-2021 Assay of troponin quantitative Shanna Rivas INDUSTRIAL AUTOMATION ENGINEER - RIFLE CASE REPAIRER Work Phone: Start: 05-20-2021 Ct abdomen & pelvis w/o contrast material Shanna Rivas INDUSTRIAL AUTOMATION ENGINEER - RIFLE CASE REPAIRER Work Phone: Start: 05-20-2021 Drug screen class list a Shanna anguiano INDUSTRIAL AUTOMATION ENGINEER - RIFLE CASE REPAIRER Work Phone: Start: 05-20-2021 Urinalysis microscopic only Shanna verduzco INDUSTRIAL AUTOMATION ENGINEER - RIFLE CASE REPAIRER Work Phone: Start: 05-20-2021 Urnls dip stick/tablet rgnt auto w/o microscopy Shanna Rivas INDUSTRIAL AUTOMATION ENGINEER - RIFLE CASE REPAIRER Work Phone: Start: 05-20-2021 Radiologic exam chest single view Shanna Bishop Evelyn INDUSTRIAL AUTOMATION ENGINEER - RIFLE CASE REPAIRER Work Phone: Start: 05-20-2021 Assay of lactate Shanna Rivas INDUSTRIAL AUTOMATION ENGINEER - RIFLE CASE REPAIRER Work Phone: Start: 05-20-2021 BASIC METABOLIC PANEL W/ REFLEX TO MG FOR LOW K Shanna Bishop Evelyn INDUSTRIAL AUTOMATION ENGINEER - RIFLE CASE REPAIRER Work Phone: Start: 05-20-2021 C-reactive protein Shanna Bishop Evelyn INDUSTRIAL AUTOMATION ENGINEER - RIFLE CASE REPAIRER Work Phone: Start: 05-20-2021 Ecg routine ecg w/least 12 lds w/i&r Araseli Barrett MD Work Phone: Start: 05-19-2021 Adult depression screening assessment Peter Knight APRN.RIFLE CASE REPAIRER Work Phone: Start: 04-16-2021 Ct abdomen & pelvis w/o contrast material Shanna Bishop Evelyn INDUSTRIAL AUTOMATION ENGINEER - RIFLE CASE REPAIRER Work Phone: Start: 04-16-2021 Radiologic exam chest single view Shanna Bishop Evelyn INDUSTRIAL AUTOMATION ENGINEER - RIFLE CASE REPAIRER Work Phone: Start: 04-16-2021 Ecg routine ecg w/least 12 lds w/i&r Shanna Bishop Evelyn INDUSTRIAL AUTOMATION ENGINEER - RIFLE CASE REPAIRER Work Phone: Start: 04-16-2021 Urinalysis microscopic only Shanna Peña dax INDUSTRIAL AUTOMATION ENGINEER - RIFLE CASE REPAIRER Work Phone: Start: 04-16-2021 Urine test visual color cmprsn meths Shanna Bishop Evelyn INDUSTRIAL AUTOMATION ENGINEER - RIFLE CASE REPAIRER Work Phone: Start: 04-16-2021 Assay of lipase Shanna Bishop Evelyn INDUSTRIAL AUTOMATION ENGINEER - RIFLE CASE REPAIRER Work Phone: Start: 04-16-2021 BASIC METABOLIC PANEL W/ REFLEX TO MG FOR LOW K Shanna Bishop Evelyn INDUSTRIAL AUTOMATION ENGINEER - RIFLE CASE REPAIRER Work Phone: Start: 04-16-2021 Hepatic function panel Shanna Bishop Evelyn INDUSTRIAL AUTOMATION ENGINEER - RIFLE CASE REPAIRER Work Phone: Start: 02-10-2021 H/O: hysterectomy History of hysterectomy Stella Flowers INDUSTRIAL AUTOMATION ENGINEER-RIFLE CASE REPAIRER Work Phone: Start: 11-01-2020 Ecg routine ecg w/least 12 lds w/i&r Araseli Barrett MD Work Phone: Start: 11-01-2020 Assay of magnesium Araseli Barrett MD Work Phone: Start: 11-01-2020 BASIC METABOLIC PANEL W/ REFLEX TO MG FOR LOW K rAaseli Barrett MD Work Phone: Start: 11-01-2020 Radiologic exam chest single view Araseli Barrett MD Work Phone: Start: 03-17-2019 Fallopian tube excision LORAINE BURNHAM Start: 04-08-2009 Laparoscopic cholecystostomy LORAINE TEO RRY Appendectomy LORAINE BURNHAM section LORAINE PE RRY Ligation of fallopian tube J DELIA BURNHAM Nasal septoplasty LORAINE P ERRY Tympanostomy LORAINE BURNHAM Plan of Treatment Date Care Activity Detail Author Start: 05-07-2024 Adult BMI Screening Adult BMI Screening [facility] Start: 05-07-2024 Tobacco Screening Tobacco Screening [facility] Start: 01-05-2024 Adult BMI Screening Adult BMI Screening [facility] Start: 01-05-2024 Depression Screening Depression Screening [facility] Start: 01-05-2024 Tobacco Screening Tobacco Screening [facility] Start: 11-19-2023 End: 11-19-2023 Patient encounter procedure 11/19/2023 8:45 AM EDT Office Visit [facility] [address] [place] [id number] Akila Yao MD 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 Work Phone: Comment on above: Expected: 10/03/2023 (Approximate), Expi res: 10/03/2023 Start: 10-03-2023 End: 10-03-2023 Comprehensive metabolic 2000 panel - Serum or Plasma COMP METABOLIC PANEL Lab Routine 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) Coagulopathy (HCC) Expected: 10/03/2023 (Approximate), Expires: 10/03/2023 [facility] Work Phone: Comment on above: Expected: 10/03/2023 (Approximate), Expi res: 10/03/2023 Start: 10-02-2023 ambulatory Ambulatory Facility:[facility] Start: 07-10-2023 End: 07-10-2023 Patient encounter procedure 07/10/2023 9:00 AM EDT Office Visit [facility] [address] [place] [address] Jodi Mazariegos, [place] [address] [place] [address] [facility] Start: 07-05-2023 End: 07-05-2023 Telemedicine consultation with patient 07/05/2023 3:30 PM EDT Telemedicine [facility] [address] [place] [address] Stella Flowers, INDUSTRIAL AUTOMATION ENGINEER-RIFLE CASE REPAIRER [address] [place] [address] [facility] Start: 05-08-2023 End: 05-07-2024 US Thyroid gland Ultrasound thyroid Imaging Routine 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 [facility] [address] [place] [address] [facility] Start: 04-09-2023 End: 04-09-2023 Patient encounter procedure 04/09/2023 8:45 AM EST Office Visit [facility] [address] [place] [address] Cas Dowell MD [address] [place] [address] [facility] Start: 04-03-2023 Hemoglobin A1c measurement Diabetes: Hemoglobin A1C [facility] Start: 01-30-2023 GFR test (Diabetes, CKD 3-4, OR last GFR 15-59) GFR test (Diabetes, CKD 3-4, OR last GFR 15-59) [facility] Start: 01-09-2023 Hemoglobin A1c measurement A1C test (Diabetic or Prediabetic) [facility] Start: 10-17-2022 Adult depression screening assessment DEPRESSION SCREENING Start: 10-08-2022 Adult depression screening assessment DEPRESSION SCREENING Start: 10-06-2022 Influenza vaccination Start: 10-01-2022 End: 04-03-2023 CBC W Auto Differential panel - Blood CBC + DIFF Lab Routine 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 Work Phone: Comment on above: Expected: 10/01/2022 (Approximate), Expi res: 04/03/2023 Start: 09-14-2022 Adult depression screening assessment DEPRESSION SCREENING Start: 07-29-2022 Adult depression screening assessment DEPRESSION SCREENING Start: 06-29-2022 Adult depression screening assessment DEPRESSION SCREENING Start: 06-21-2022 End: 06-21-2022 Patient encounter procedure 06/21/2022 Office Visit Pulmonology Armando Balderrama DO [address] [facility] [address] [place], [place] [id number] [facility] Start: 06-20-2022 Adult depression screening assessment DEPRESSION SCREENING Start: 05-25-2022 Depression Monitoring Depression Monitoring [facility] Start: 05-19-2022 Adult depression screening assessment DEPRESSION SCREENING Start: 04-16-2022 Creatinine measurement Creatinine monitoring [facility] Start: 04-16-2022 Potassium monitoring Potassium monitoring [facility] Start: 02-27-2022 End: 02-27-2022 Patient encounter procedure 02/27/2022 Office Visit Pulmonology Nabor Yancey, INDUSTRIAL AUTOMATION ENGINEER - RIFLE CASE REPAIRER [address] [facility] [address] [place], [place] [id number] [facility] P[facility] of [facility] Start: 02-10-2022 End: 04-12-2022 PLATELET TRANSMISSION ELECTRON MICROSCOPIC STUDY PLATELET TRANSMISSION ELECTRON MICROSCOPIC STUDY Lab Routine 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 Work Phone: Comment on above: Expected: 02/10/2022, Expires: 3 Start: 02-05-2022 DEPRESSION ASSESSMENT DEPRESSION ASSESSMENT Start: 2021 End: 2021 Patient encounter procedure 2021 Office Visit Pulmonology Armando Balderrama DO [address] [place] [address] [facility] of [facility] Start: 11-16-2021 End: 01-16-2022 Ferritin [Mass/volume] in Serum or Plasma FERRITIN BLD Lab Routine RLS (restless legs syndrome) Expected: 11/16/2021, Expires: 01/16/2022 [facility] Work Phone: Comment on above: Expected: 11/16/2021, Expires: 2 Start: 11-16-2021 End: 01-16-2022 Iron and Iron binding capacity panel - Serum or Plasma IRON + TIBC Lab Routine RLS (restless legs syndrome) Expected: 11/16/2021, Expires: 01/16/2022 [facility] Work Phone: Comment on above: Expected: 11/16/2021, Expires: 2 Start: 11-01-2021 Creatinine measurement Creatinine monitoring [facility] Work Phone: Start: 11-01-2021 Potassium monitoring Potassium monitoring [facility] Work Phone: Start: 10-06-2021 Influenza vaccination [facility] Start: 09-28-2021 Glaucoma screening Diabetic retinal exam [facility] Start: 09-21-2021 End: 11-21-2021 Phosphate [Mass/volume] in Serum or Plasma [facility] Work Phone: Comment on above: Expected: [...] joint, multiple sites Expected: 09/19/2021, Expires: 11/19/2021 [facility] Work Phone: Comment on above: Expected: [...] joint, multiple sites Expected: 09/19/2021, Expires: 11/19/2021 [facility] Work Phone: Comment on above: Expected: 09/19/2021, Expires: 2 Start: 09-19-2021 End: 11-19-2021 CARDIOLIPIN IGM ABS CARDIOLIPIN IGM ABS Lab Routine History of COVID-19 Post-acute sequelae of COVID-19 (PASC) SOB (shortness of breath) Chronic cough Chest discomfort Palpitation CAVANAUGH (dyspnea on exertion) Dizziness Near syncope Night sweats Orthopnea Anxiety Myalgia Pain in joint, multiple sites Expected: 09/19/2021, Expires: 11/19/2021 [facility] Work Phone: Comment on above: Expected: 09/19/2021, Expires: 2 Start: 09-19-2021 End: 11-19-2021 CBC panel - Blood by Automated count CBC Lab Routine History of COVID-19 Post-acute sequelae of COVID-19 (PASC) SOB (shortness of breath) Chronic cough Chest discomfort Palpitation CAVANAUGH (dyspnea on exertion) Dizziness Near syncope Night sweats Orthopnea Anxiety Myalgia Pain in joint, multiple sites Expected: 09/19/2021, Expires: 11/19/2021 [facility] Work Phone: Comment on above: Expected: [...] joint, multiple sites Expected: 09/19/2021, Expires: 11/19/2021 [facility] Work Phone: Comment on above: Expected: [...] joint, multiple sites Expected: 09/19/2021, Expires: 11/19/2021 [facility] Work Phone: Comment on above: Expected: 09/19/2021, Expires: 2 Start: 09-19-2021 End: 11-19-2021 Erythrocyte sedimentation rate SED RATE WESTERGREN Lab Routine History of COVID-19 Post-acute sequelae of COVID-19 (PASC) SOB (shortness of breath) Chronic cough Chest discomfort Palpitation CAVANAUGH (dyspnea on exertion) Dizziness Near syncope Night sweats Orthopnea Anxiety Myalgia Pain in joint, multiple sites Expected: 09/19/2021, Expires: 11/19/2021 [facility] Work Phone: Comment on above: Expected: 09/19/2021, Expires: 2 Start: 09-19-2021 End: 11-19-2021 Fibrin D-dimer FEU [Mass/volume] in Platelet poor plasma D-DIMER Lab Routine History of COVID-19 Post-acute sequelae of COVID-19 (PASC) SOB (shortness of breath) Chronic cough Chest discomfort Palpitation CAVANAUGH (dyspnea on exertion) Dizziness Near syncope Night sweats Orthopnea Anxiety Myalgia Pain in joint, multiple sites Expected: 09/19/2021, Expires: 11/19/2021 [facility] Work Phone: Comment on above: Expected: [...] joint, multiple sites Expected: 09/19/2021, Expires: 11/19/2021 [facility] Work Phone: Comment on above: Expected: 09/19/2021, Expires: 2 Start: 09-19-2021 End: 11-19-2021 OMEGACHECK OMEGACHECK Lab Routine History of COVID-19 Post-acute sequelae of COVID-19 (PASC) SOB (shortness of breath) Chronic cough Chest discomfort Palpitation CAVANAUGH (dyspnea on exertion) Dizziness Near syncope Night sweats Orthopnea Anxiety Myalgia Pain in joint, multiple sites Expected: 09/19/2021, Expires: 11/19/2021 [facility] Work Phone: Comment on above: Expected: 09/19/2021, Expires: 2 Start: 09-19-2021 End: 11-19-2021 TMAO TMAO Lab Routine History of COVID-19 Post-acute sequelae of COVID-19 (PASC) SOB (shortness of breath) Chronic cough Chest discomfort Palpitation CAVANAUGH (dyspnea on exertion) Dizziness Near syncope Night sweats Orthopnea Anxiety Myalgia Pain in joint, multiple sites Expected: 09/19/2021, Expires: 11/19/2021 [facility] Work Phone: Comment on above: Expected: 09/19/2021, Expires: 2 Start: 09-19-2021 End: 11-19-2021 TRACE ELEMENTS/TPN TRACE ELEMENTS/TPN Lab Routine History of COVID-19 Post-acute sequelae of COVID-19 (PASC) SOB (shortness of breath) Chronic cough Chest discomfort Palpitation CAVANAUGH (dyspnea on exertion) Dizziness Near syncope Night sweats Orthopnea Anxiety Myalgia Pain in joint, multiple sites Expected: 09/19/2021, Expires: 11/19/2021 [facility] Work Phone: Comment on above: Expected: 09/19/2021, Expires: 2 Start: 09-05-2021 Influenza vaccination Flu vaccine (#1) [facility] Start: 08-24-2021 End: 08-24-2021 Patient encounter procedure 08/24/2021 Office Visit Pulmonology Armando Balderrama, DO [address] [place] [address] [facility] Start: 07-25-2021 End: 09-24-2021 Complement C3 [Mass/volume] in Serum or Plasma [facility] Work Phone: Comment on above: Expected: 07/25/2021, Expires: 2 Start: 07-25-2021 End: 09-24-2021 Complement C4 [Mass/volume] in Serum or Plasma [facility] Work Phone: Comment on above: Expected: 07/25/2021, Expires: 2 Start: 07-25-2021 End: 09-24-2021 TRYPTASE BLOOD [facility] Work Phone: Comment on above: Expected: 07/25/2021, Expires: 2 Start: 07-05-2021 End: 09-04-2021 Corticotropin [Mass/volume] in Plasma ACTH BLD Lab Routine Screening for endocrine disorder Expected: 07/05/2021, Expires: 09/04/2021 [facility] Work Phone: Comment on above: Expected: 07/05/2021, Expires: 2 Start: 07-05-2021 End: 09-04-2021 Cortisol [Mass/volume] in Serum or Plasma CORTISOL BLD Lab Routine Screening for endocrine disorder Expected: 07/05/2021, Expires: 09/04/2021 [facility] [facility] Work Phone: Comment on above: Expected: 07/05/2021, Expires: 2 Start: 07-01-2021 End: 08-31-2021 CBC W Ordered Manual Differential panel - Blood PATHOLOGIST INTERPRETATION WITH CBC AND DIFF Lab Routine Coagulopathy (HCC) 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HCC) Expected: 07/01/2021, Expires: 08/31/2021 [facility] Work Phone: Comment on above: Expected: 07/01/2021, Expires: 2 Start: 07-01-2021 End: 08-31-2021 Fibrinogen [Mass/volume] in Platelet poor plasma by Coagulation assay FIBRINOGEN Lab Routine Coagulopathy (HCC) 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HCC) Expected: 07/01/2021, Expires: 08/31/2021 [facility] Work Phone: Comment on above: Expected: 07/01/2021, Expires: 2 Start: 07-01-2021 End: 08-31-2021 FIBRINOGEN ANTIGEN FIBRINOGEN ANTIGEN Lab Routine Coagulopathy (HCC) 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HCC) Expected: 07/01/2021, Expires: 08/31/2021 [facility] Work Phone: Comment on above: Expected: 07/01/2021, Expires: 2 Start: 07-01-2021 End: 08-31-2021 PLATELET AGGREGATION PANEL PLATELET AGGREGATION PANEL Lab Routine Coagulopathy (HCC) 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HCC) Expected: 07/01/2021, Expires: 08/31/2021 [facility] Work Phone: Comment on above: Expected: 07/01/2021, Expires: 2 Start: 07-01-2021 End: 08-31-2021 PLATELET FUNCTION SCREEN PLATELET FUNCTION SCREEN Lab Routine Coagulopathy (HCC) 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HCC) Expected: 07/01/2021, Expires: 08/31/2021 [facility] Work Phone: Comment on above: Expected: 07/01/2021, Expires: 2 Start: 07-01-2021 End: 08-31-2021 THROMBOGRAPH HEPARINASE PANEL THROMBOGRAPH HEPARINASE PANEL Lab Routine Coagulopathy (HCC) 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HCC) Expected: 07/01/2021, Expires: 08/31/2021 [facility] Work Phone: Comment on above: Expected: 07/01/2021, Expires: 2 Start: 06-27-2021 End: 08-27-2021 Alpha tocopherol [Mass/volume] in Serum or Plasma VITAMIN E/TOCOPHEROL Lab Routine Muscle spasms of lower extremity, unspecified laterality Akathisia Expected: 06/27/2021, Expires: 08/27/2021 [facility] Work Phone: Comment on above: Expected: 06/27/2021, Expires: 2 Start: 06-27-2021 End: 08-27-2021 Ceruloplasmin [Mass/volume] in Serum or Plasma CERULOPLASMIN BLD Lab Routine Muscle spasms of lower extremity, unspecified laterality Akathisia Expected: 06/27/2021, Expires: 08/27/2021 [facility] Work Phone: Comment on above: Expected: 06/27/2021, Expires: 2 Start: 06-27-2021 End: 08-27-2021 CK CREATINE KINASE CK CREATINE KINASE Lab Routine Muscle spasms of lower extremity, unspecified laterality Akathisia Expected: 06/27/2021, Expires: 08/27/2021 [facility] Work Phone: Comment on above: Expected: 06/27/2021, Expires: 2 Start: 06-27-2021 End: 08-27-2021 COPPER, SERUM/PLASMA FREE COPPER, SERUM/PLASMA FREE Lab Routine Muscle spasms of lower extremity, unspecified laterality Akathisia Expected: 06/27/2021, Expires: 08/27/2021 [facility] Work Phone: Comment on above: Expected: 06/27/2021, Expires: 2 Start: 06-27-2021 End: 08-27-2021 FERRITIN BLD FERRITIN BLD Lab Routine Muscle spasms of lower extremity, unspecified laterality Akathisia Expected: 06/27/2021, Expires: 08/27/2021 [facility] Work Phone: Comment on above: Expected: 06/27/2021, Expires: 2 Start: 06-14-2021 End: 08-14-2021 Corticotropin [Mass/volume] in Plasma ACTH BLD Lab Routine Screening for endocrine disorder Expected: 06/14/2021, Expires: 08/14/2021 [facility] Work Phone: Comment on above: Expected: 06/14/2021, Expires: 2 Start: 06-14-2021 End: 08-14-2021 Cortisol [Mass/volume] in Serum or Plasma [facility] Work Phone: Comment on above: Expected: 06/14/2021, Expires: 2 Start: 06-14-2021 End: 08-14-2021 DHEA-S BLD [facility] Work Phone: Comment on above: Expected: 06/14/2021, Expires: 2 Start: 06-10-2021 End: 08-10-2021 APTT INCUBATED MIXING STUDY APTT INCUBATED MIXING STUDY Lab Routine Coagulopathy ([facility]) Expected: 06/10/2021, Expires: 08/10/2021 [facility] Work Phone: Comment on above: Expected: 06/10/2021, Expires: 2 Start: 06-10-2021 End: 08-10-2021 Coagulation factor IX activity actual/normal in Platelet poor plasma by Coagulation assay FACTOR IX:C ASSAY Lab Routine Coagulopathy ([facility]) Expected: 06/10/2021, Expires: 08/10/2021 [facility] Work Phone: Comment on above: Expected: 06/10/2021, Expires: 2 Start: 06-10-2021 End: 08-10-2021 Coagulation factor V activity actual/normal in Platelet poor plasma by Coagulation assay FACTOR V:C ASSAY Lab Routine Coagulopathy ([facility]) Expected: 06/10/2021, Expires: 08/10/2021 [facility] Work Phone: Comment on above: Expected: 06/10/2021, Expires: 2 Start: 06-10-2021 End: 08-10-2021 Coagulation factor VIII activity actual/normal in Platelet poor plasma by Coagulation assay FACTOR VIII:C ASSAY Lab Routine Coagulopathy ([facility]) Expected: 06/10/2021, Expires: 08/10/2021 [facility] Work Phone: Comment on above: Expected: 06/10/2021, Expires: 2 Start: 06-10-2021 End: 08-10-2021 Coagulation factor X activity actual/normal in Platelet poor plasma by Coagulation assay FACTOR X:C ASSAY Lab Routine Coagulopathy ([facility]) Expected: 06/10/2021, Expires: 08/10/2021 [facility] Work Phone: Comment on above: Expected: 06/10/2021, Expires: 2 Start: 06-10-2021 End: 08-10-2021 Coagulation factor XI activity actual/normal in Platelet poor plasma by Coagulation assay FACTOR XI:C ASSAY Lab Routine Coagulopathy ([facility]) Expected: 06/10/2021, Expires: 08/10/2021 [facility] Work Phone: Comment on above: Expected: 06/10/2021, Expires: 2 Start: 06-10-2021 End: 08-10-2021 PLATELET AGGREGATION PANEL PLATELET AGGREGATION PANEL Lab Routine Coagulopathy ([facility]) Expected: 06/10/2021, Expires: 08/10/2021 [facility] Work Phone: Comment on above: Expected: 06/10/2021, Expires: 2 Start: 06-10-2021 End: 08-10-2021 PLATELET FUNCTION SCREEN PLATELET FUNCTION SCREEN Lab Routine Coagulopathy ([facility]) Expected: 06/10/2021, Expires: 08/10/2021 [facility] Work Phone: Comment on above: Expected: 06/10/2021, Expires: 2 Start: 06-10-2021 End: 08-10-2021 Prothrombin activity actual/normal in Platelet poor plasma by Coagulation assay FACTOR II:C ASSAY Lab Routine Coagulopathy ([facility]) Expected: 06/10/2021, Expires: 08/10/2021 [facility] Work Phone: Comment on above: Expected: 06/10/2021, Expires: 2 Start: 06-10-2021 End: 08-10-2021 VON WILLEBRAND DX PANEL VON WILLEBRAND DX PANEL Lab Routine Coagulopathy ([facility]) Expected: 06/10/2021, Expires: 08/10/2021 [facility] Work Phone: Comment on above: Expected: 06/10/2021, Expires: 2 Start: 05-25-2021 End: 05-25-2021 Patient encounter procedure 05/25/2021 Office Visit Pulmonology Armando Balderrama DO [address] [place] [address] [facility] Start: 02-28-2021 End: 02-28-2021 Patient encounter procedure 02/28/2021 Office Visit Pulmonology Fortunato Dean MD [address] [address] [phone] [facility] Start: 02-05-2021 DEPRESSION ASSESSMENT DEPRESSION ASSESSMENT Start: 10-06-2020 Influenza vaccination [facility] Start: 06-28-2020 End: 06-28-2020 Patient encounter procedure 06/28/2020 Office Visit Pulmonology Fortunato Dean MD [address] [address] [phone] [facility] Start: 12-20-2018 Diabetes screen Diabetes screen [facility] Start: 03-17-2016 Screening for malignant neoplasm of cervix Cervical cancer screen [facility] Work Phone: Start: 12-20-2013 HPV TESTING HPV TESTING Start: 12-20-2004 PAP TESTING PAP TESTING Start: 12-20-2002 DTaP,Tdap and Td Vaccines (1 - Tdap) DTaP,Tdap and Td Vaccines (1 - Tdap) [facility] Start: 12-20-2002 DTaP/Tdap/Td vaccine (1 - Tdap) DTaP/Tdap/Td vaccine (1 - Tdap) [facility] Start: 12-20-2002 Hepatitis B vaccine (1 of 3 - Risk 3-dose series) Hepatitis B vaccine (1 of 3 - Risk 3-dose series) [facility] Start: 12-20-2002 Urine microalbumin profile DTAP,TDAP,TD (1 - Tdap) Start: 12-20-2002 Urine screening for protein Diabetes: Urine Protein Screening [facility] Start: 12-20-2001 Adult BMI Follow Up Plan Adult BMI Follow Up Plan [facility] Start: 12-20-2001 ANNUAL PCP TEAM CHRONIC DISEASE VISIT ANNUAL PCP TEAM CHRONIC DISEASE VISIT Start: 12-20-2001 HEPATITIS C SCREENING HEPATITIS C SCREENING Start: 12-20-2001 Hepatitis C screening Hepatitis C screen [facility] Start: 12-20-2001 HIV SCREENING HIV SCREENING Start: 12-20-2001 Urine screening for protein Diabetic Alb to Cr ratio (uACR) test [facility] Start: 1999 COVID-19 Vaccine (1) COVID-19 Vaccine (1) [facility] Work Phone: Start: 12-20-1998 HIV screening HIV screen [facility] Start: 1995 COVID-19 Vaccine (1) COVID-19 Vaccine (1) [facility] Work Phone: Start: 1995 Depression Screen Depression Screen [facility] Start: 12-20-1993 Diabetic foot examination Diabetic foot exam [facility] Start: 12-20-1993 Glaucoma screening Diabetes: Retinopathy Screening [facility] Start: 12-20-1993 Lipid panel Lipids [facility] Start: 12-20-1989 PNEUMOCOCCAL (1 - PCV) PNEUMOCOCCAL (1 - PCV) [facility] Start: 12-20-1989 Pneumococcal 0-64 years Vaccine (1 - PCV) Pneumococcal 0-64 years Vaccine (1 - PCV) [facility] Start: 12-20-1989 Pneumococcal 0-64 years Vaccine (1 of 2 - PPSV23) Pneumococcal 0-64 years Vaccine (1 of 2 - PPSV23) [facility] Start: 12-20-1988 COVID-19 VACCINE (#1) COVID-19 VACCINE (#1) Start: 12-20-1988 COVID-19 Vaccine (1) COVID-19 Vaccine (1) [facility] Start: 12-20-1984 Varicella vaccine (1 of 2 - 2-dose childhood series) Varicella vaccine (1 of 2 - 2-dose childhood series) [facility] Start: 06-19-1984 COVID-19 VACCINE (#1) COVID-19 VACCINE (#1) Start: 1983 HEPATITIS B (1 of 3 - 3-dose series) HEPATITIS B (1 of 3 - 3-dose series) Start: 1983 Hepatitis C screening Hepatitis C screen [facility] ACTIGRAPHY TESTING ACTIGRAPHY TE STING Procedures Routine Shift work sleep disorder Poor sleep pattern 1 Occurrences starting 11/16/2021 [employer] Work Phone: Comment on above: 1 Occurrences starting 11/16/2021 Ambulatory bp mntr w /sw 24 hr+ rec scan ewa i&r AMBULATORY BP MONITORING Cardiology Routine Blood pressure instability Ordered: 07/21/2021 [employer] Work Phone: Comment on above: Ordered: 07/21/2021 Cardiovascular funct ion eval w/tilt table w/mntr TILT TABLE EVALUATION Cardiology Routine Palpitations Symptomatic bradycardia Orthostatic intolerance Ordered: 10/20/2021 [employer] Work Phone: Comment on above: Ordered: 10/20/2021 End: 07-21-2022 Echocardiography ECHO Cardiology Routine Symptomatic bradycardia Blood pressure instability History of COVID-19 1 Occurrences starting 07/21/2021 until 07/21/2022 [employer] Work Phone: Comment on above: 1 Occurrences starting 07/21/2021 until 07/21/2022 EKG 12 Lead EKG 12 Lead ECG STAT 11/01/2020 4:26 PM [employer] Work Phone: EKG 12 Lead EKG 12 Lead ECG STAT 04/16/2021 8:11 PM EST [employer] Work Phone: EKG 12 Lead EKG 12 Lead ECG STAT 06/21/2021 12:06 AM [employer] Work Phone: End: 10-19-2022 LUNG DIFFUSION CAPACITY (DLCO) LUNG DIFFUSION CAPACITY (DLCO) PFT Routine History of COVID-19 Post-acute sequelae of COVID-19 (PASC) SOB (shortness of breath) Chronic cough Chest discomfort Palpitation CAVANAUGH (dyspnea on exertion) Dizziness Near syncope Night sweats Orthopnea Anxiety Myalgia Pain in joint, multiple sites 1 Occurrences starting 09/19/2021 until 10/19/2022 [employer] [facility] [employer] Work Phone: Comment on above: 1 Occurrences starting 09/19/2021 until 10/19/2022 End: 10-19-2022 LUNG VOLUMES LUNG VOLUMES PFT Routine History of COVID-19 Post-acute sequelae of COVID-19 (PASC) SOB (shortness of breath) Chronic cough Chest discomfort Palpitation CAVANAUGH (dyspnea on exertion) Dizziness Near syncope Night sweats Orthopnea Anxiety Myalgia Pain in joint, multiple sites 1 Occurrences starting 09/19/2021 until 10/19/2022 [facility] Work Phone: Comment on above: 1 Occurrences starting 09/19/2021 until 10/19/2022 End: 01-05-2023 NITRIC OXIDE, EXHALED NITRIC OXIDE, EXHALED PFT Routine Moderate persistent asthma without complication SOB (shortness of breath) Post-acute sequelae of COVID-19 (PASC) 1 Occurrences starting 12/06/2021 until 01/05/2023 [facility] Work Phone: Comment on above: 1 Occurrences starting 12/06/2021 until 01/05/2023 OUTSIDE VENDOR CARDI AC OUTPATIENT EXTENDED RHYTHM RECORDING (WITHOUT TELEMETRY) OUTSIDE VENDOR CARDIAC OUTPATIENT EXTENDED RHYTHM RECORDING (WITHOUT TELEMETRY) Holter Routine Palpitations Symptomatic bradycardia Orthostatic lightheadedness Diffuse pain Blood pressure instability Decreased activity tolerance Orthostatic intolerance Moderate persistent asthma without complication Physical deconditioning Ordered: 10/20/2021 [facility] Work Phone: Comment on above: Ordered: 10/20/2021 End: 12-16-2022 PAP NAP PSG (CPAP, BILEVEL, ASV) PAP NAP PSG (CPAP, BILEVEL, ASV) Procedures Routine KATELIN on CPAP Poor compliance with CPAP treatment 1 Occurrences starting 11/16/2021 until 12/16/2022 [facility] Work Phone: Comment on above: 1 Occurrences starting 11/16/2021 until 12/16/2022 End: 12-16-2022 PAP TITRATION PSG (CPAP, BIPAP, ASV) PAP TITRATION PSG (CPAP, BIPAP, ASV) Procedures Routine KATELIN on CPAP 1 Occurrences starting 11/16/2021 until 12/16/2022 [facility] Work Phone: Comment on above: 1 Occurrences starting 11/16/2021 until 12/16/2022 End: 02-17-2022 PLATELET ELECT.HOSSEIN [facility] Work Phone: Comment on above: Once for [...] sites 1 Occurrences starting 09/19/2021 until 10/19/2022 [facility] Work Phone: Comment on above: 1 Occurrences starting 09/19/2021 until 10/19/2022 End: 10-19-2022 SIX MINUTE WALK SIX MINUTE WALK PFT Routine History of COVID-19 Post-acute sequelae of COVID-19 (PASC) SOB (shortness of breath) Chronic cough Chest discomfort Palpitation CAVANAUGH (dyspnea on exertion) Dizziness Near syncope Night sweats Orthopnea Anxiety Myalgia Pain in joint, multiple sites 1 Occurrences starting 09/19/2021 until 10/19/2022 [facility] Work Phone: Comment on above: 1 Occurrences starting 09/19/2021 until 10/19/2022 SIX MINUTE WALK SIX MINUTE WALK PFT Routine History of COVID-19 Post-acute sequelae of COVID-19 (PASC) SOB (shortness of breath) Chronic cough Chest discomfort Palpitation CAVANAUGH (dyspnea on exertion) Dizziness Near syncope Night sweats Orthopnea Anxiety Myalgia Pain in joint, multiple sites 09/27/2021 8:23 AM EDT [facility] Work Phone: End: 10-19-2022 SPIROMETRY - BASELINE AND POST DILATOR SPIROMETRY - BASELINE AND POST DILATOR PFT Routine History of COVID-19 Post-acute sequelae of COVID-19 (PASC) SOB (shortness of breath) Chronic cough Chest discomfort Palpitation CAVANAUGH (dyspnea on exertion) Dizziness Near syncope Night sweats Orthopnea Anxiety Myalgia Pain in joint, multiple sites 1 Occurrences starting 09/19/2021 until 10/19/2022 [facility] Work Phone: Comment on above: 1 Occurrences starting 09/19/2021 until 10/19/2022 End: 01-05-2023 SPIROMETRY - BASELINE AND POST DILATOR SPIROMETRY - BASELINE AND POST DILATOR PFT Routine Moderate persistent asthma without complication SOB (shortness of breath) Post-acute sequelae of COVID-19 (PASC) 1 Occurrences starting 12/06/2021 until 01/05/2023 [facility] Work Phone: Comment on above: 1 [...] axilla 1 Occurrences starting 09/19/2021 until 10/19/2022 [facility] Work Phone: Comment on above: 1 Occurrences starting 09/19/2021 until 10/19/2022 End: 09-15-2022 Us pelvic nonobstetric image dcmtn limited/f/u US PELVIS LTD Radiology Routine Chronic RLQ pain 1 Occurrences starting 08/16/2021 until 09/15/2022 [facility] Work Phone: Comment on above: 1 Occurrences starting 08/16/2021 until 09/15/2022 End: 09-14-2022 US SOFT TISSUE ABDOMEN US SOFT TISSUE ABDOMEN Radiology Routine Chronic RLQ pain 1 Occurrences starting 08/15/2021 until 09/14/2022 [facility] Work Phone: Comment on above: 1 Occurrences starting 08/15/2021 until 09/14/2022 [facility] Immunizations Immunization Date Immunization Notes Care Provider [facility] 11-20-2019 influenza virus vaccine, H5N1, A/ (national stockpile) Cas Dowell MD Work Phone: [facility] 11-20-2019 influenza virus vaccine, unspecified formulation Araseli Barrett MD Work Phone: [facility] Work Phone: 11-20-2019 influenza, unspecifi ed formulation LORAINE BURNHAM [facility] 11-06-2019 influenza virus vaccine, unspecified formulation LORAINE BURNHAM [facility] 11-06-2019 influenza, high dose seasonal, preservative-free Yan Bass MD Work Phone: 10-27-2019 influenza virus vaccine, unspecified formulation LORAINE BURNHAM [facility] 10-27-2019 influenza, injectabl e, quadrivalent, preservative free Yan Bass MD Work Phone: Payers Date Payer Category Payer Unknown [id number] 2022 Unknown [id number] 2022 Unknown [id number] 2014 Unknown MMO MMO [employer] [id number] 2014-Present [phone] [address] [place] [address] O [id number]. [id number] 2014 Unknown [id number]. 1.13.159.2.7.3. [id number] 1983 Unknown [id number] 2.16.840.1.652343.3.579.2.174 1983 Unknown [id number] 2.16.840.1.777541.3.579.2.174 1983 Unknown [id number] 2.16.840.1.524916.3.579.2.175 1983 Unknown [id number] 2.16.840.1.654795.3.579.2.593 1983 Unknown [id number] 2.16.840.1.290110.3.579.2.593 1983 Unknown [id number] 2.16.840.1.113873.3.579.2.593 1983 Unknown [id number] 2.16.840.1.955419.3.579.2.593 1983 Unknown [id number] 2.16.840.1.327120.3.579.2.593 1983 Unknown [id number] 2.16.840.1.933070.3.579.2.593 1983 Unknown [id number] 2.16.840.1.342388.3.579.2.593 1983 Unknown [id number] 2.16.840.1.684954.3.579.2.593 1983 Unknown [id number] 2.16.840.1.509555.3.579.2.593 1983 Unknown [id number] 2.16.840.1.646186.3.579.2.593 1983 Unknown [id number] 2.16.840.1.104842.3.579.2.593 1983 Unknown [id number] 2.16.840.1.488573.3.579.2.593 1983 Unknown [id number] 2.16.840.1.487148.3.579.2.173 1983 Unknown [id number] 2.16.840.1.968035.3.579.2.173 1983 Unknown [id number] 2.16.840.1.817108.3.579.2.173 1983 Unknown [id number] 2.16840.1.315895.3.579.2.173 1983 Unknown [id number] 2.16.840.1.588528.3.579.2.173 1983 Unknown [id number] 2.16840.1.910576.3.579.2.173 1983 Unknown [id number] 2.16.840.1.461208.3.579.2.196 1983 Unknown [id number] 2.16.840.1.232286.3.579.2.196 1983 Unknown [id number] 2.16.840.1.183148.3.579.2.196 1983 Unknown [id number] 2.16.840.1.620195.3.579.2.196 1983 Unknown [id number] 2.16.840.1.074090.3.579.2.196 1983 Unknown [id number] 2.16.840.1.135980.3.579.2.1286 1983 Unknown [id number] 2.16.840.1.477292.3.579.2.1259 1983 Unknown [id number] 2.16.840.1.269322.3.579.2.1259 1983 Unknown [id number] 2.16.840.1.324685.3.579.2.1259 1983 Unknown [id number] 2.16.840.1.420248.3.579.2.1259 1983 Unknown [id number] 2.16.840.1.564559.3.579.2.727 1983 Unknown [id number] 2.16.840.1.218884.3.579.2.727 1983 Unknown [id number] 2.16.840.1.051157.3.579.2.727 1983 Unknown [id number] 2.16.840.1.417710.3.579.2.727 1959 Unknown [id number] 1.2.840.891279.1.13.239.2.7.3. [id number] 1959 Unknown [id number] 1.2.840.604128.1.13.239.2.7.3. [id number] Social History Date Type Detail Facility Start: 06-13-2020 End: 04-10-2022 Tobacco smoking status [facility] Never smoker [employer] Phone: Start: 06-13-2020 End: 01-10-2022 Alcohol intake Current non-drinker of alcohol (finding) [employer] Phone: Start: 1985 Sex Assigned At Not on file [employer] Phone: Start: 05-10-2021 End: 01-30-2022 Exposure to SARS-CoV-2 (event) Not sure [employer] Start: 08-30-2020 End: 04-10-2022 Tobacco use and exposure Never used [employer] Start: 05-24-2021 End: 07-01-2021 Alcohol intake Current drinker of alcohol (finding) Start: 02-23-2014 History SDOH Alcohol Comment rarely uses alcohol Start: 1985 Sex Assigned At Female Start: 07-22-2021 End: 05-08-2023 Alcohol intake Ex-drinker (finding) Start: 09-17-2021 End: 09-27-2021 Exposure to SARS-CoV-2 (event) Unable to assess History of tobacco use Passive smoker [place] Tobacco smoking status Never [facility] Start: 03-18-2020 End: 10-02-2022 Sex Assigned At Female [facility] Start: 03-18-2020 End: 10-02-2022 History of Social function Start: 09-26-2020 Gender identity Identifies as female gender (finding) Start: 09-26-2020 Sexual orientation Heterosexual (finding) Start: 01-16-2023 Alcohol intake Lifetime non-drinker (finding) [facility] Functional Status Date Assessment Result Facility 09-05-2022 Functional Status N/A [facility] 02-28-2022 Functional Status N/A [facility] 01-20-2022 Functional Status N/A [facility] 2021 Functional Status N/A [facility] Clinical Notes 09-06-2020 to 05-08-2023 Sarah Best APRN-RIFLE CASE REPAIRER - 05/08/2023 8:45 AM EDTPatient InstructionsFuentes Amaral MD - 10/02/2022 9:45 AM EDTTelephone Encounter - Yury Collins MA - 05/03/2022 11:43 AM EDTAttachments Note Date [...] 2.48 She has been to referred to for symptoms from COVID-19. Dizzy and lightheaded [...] HISTORY: Past Medical History: Diagnosis Date Allergic 1990 Allergic rhinitis 1990 Anxiety Asthma Back pain 1995 Bradycardia Chest pain Clotting disorder ([facility]) 1984 COVID Depression Diabetes mellitus ([facility]) Diabetes mellitus type 2, controlled ([facility]) Eczema 2006 Elevated troponin Fatty liver GERD (gastroesophageal reflux disease) HL (hearing loss) bilateraly hearing aids Hypothyroidism Migraines Obesity 2019 KATELIN (obstructive sleep apnea) Plasma protein disorder [...] Jameson 05/08/23 [id number] documented in this encounter [employer] 01-10-2023 Note 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 Hx Cesar autoimmune thyroid disease, celiac disease. She underwent an implantable loop recorder for senior living cardiac rhythm monitoring due to syncope in June 2022. I saw Leana in follow up November 2022. After this, URI in November and December 2022 she had a upper respiratory infection. BP dropped to 80/40mmhg. But recently BP is stable. In December she experienced an episode of chest pain associated with cough and went to [place] ED (12/18/2022). She was treated for bronchitis. She has history of asthma. She saw Angelika Coronel APRN in the [facility] Cardiac Clinic as an ED follow up on 12/26/2022. At that visit she complained of dizziness, near syncope and sharp left CP radiation to shoulder. Chief Complaint: Orthostatic intolerance. Dizziness and lightheaded. 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 Last [...] diagnosis was Autonomic dysfunction. 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 Problem List Items Addressed This Visit Nervous Autonomic dysfunction Relevant Medications pyridostigmine (Mestinon) 180 mg ER tablet Orthostatic intolerance Relevant Orders Ambulatory referral to Physical Therapy Circulatory Implantable loop recorder present Other Chronic zslb-BXPHC-32 syndrome Other Visit Diagnoses Postural dizziness with near syncope - Primary Relevant Orders Ambulatory referral to Physical Therapy OI exacerbation post back to back respiratory infections. Stop short acting pyridostigmine. Add TS 180 mg daily. Physical therapy. Monitor HR and BP RTC 6-12 months. [facility] 01-04-2023 Note Chief Complaint consultation for GERD HPI Staff 37 year old female presents on consultation from Dr. Dowell for GERD. Taking Protonix 40mg daily x 6 months. Reports some sternal chest pain, bloating and sour taste in mouth. 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 Reports EGD greater than 10 years ago with gastric ulcer and H.pylori infection. History of Present Illness 37 yo female with h/o DMII, asthma, hypothyroidism, KATELIN, anxiety/depression; referred for worsening GERD; patient reports frequent bloating and epigastric pain radiating into chest, some regurgitation; no dysphagia; sees a Tile And Marble Setter that feels her frequent lung infections are [...] 50 mcg/inh madeline (more content not included)... [facility] Comment on above: Result Comment: Elec tronically Signed By: MARLON PEREZ, Tesfaye Funk.felicity\Date and Time Signed: 01/04/23 11:41 EST 01-01-2023 Note [facility] Consult Note Reason for visit: s/p loop insertion for syncope, hospital follow up for CP / cough 01/01/23: patient for follow-up, she been having symptoms of postural dizziness with near syncope she has history of dysautonomia typically sees her dysautonomia clinic she was recently seen at [facility] for chest pain loop monitor has not [...] the Heart and Vascular Center at the [facility] for an evaluation of autonomic dysfunction. [...] told needed a PPM . Transferred to [facility] and saw Dr. Michaud, giver. Echocardiogram done (?inflammation). Discharged. Referred by Covid Clinic at [facility]. Told had autonomic issues PMH: Past Medical History: Diagnosis Date Asthma 1999 Clotting disorder ([facility] 1983 Diabetes mellitus ([facility]) 2020 Disease [...] Estradiol Chest hurt (more content not included)... [facility] 01-01-2023 Note Patient here for [facility] ED 2 weeks ago for chest pain. [...] All other systems reviewed and are negative. 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 Hx Cesar autoimmune thyroid disease. She underwent an implantable loop recorder for senior living cardiac rhythm monitoring due to syncope in June 2022. She failed bupropion. We then added pyridostigmine in July. Chief Complaint: Improved on pyridostigmine. Improved strength. No nausea or diarrhea. Less dizziness. No syncope. Some near syncope. 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 No sustained palpitations. [...] diagnosis was Autonomic dysfunction. Diagnoses of Chronic uoyy-SUXQE-24 syndrome and Syncope and collapse were also pertinent to this visit. Date of Telehealth Visit: The patient was notified that using 3rd alliance party telecommunication application (e.g., [employer]) is not HIPPA compliant and may carry some privacy risks. The visit was conducted btdp-xc-iagh with the use of audio and video [...] to pyridostigmine without ill effects 2. Chronic scsq-JRZQB-86 syndrome 3. Syncope and collapse No syncope Continue to monitor with ILR. Discussed use of symptom recordings to help identify any rhythm associated with her symptoms RTC yearly [facility] 10-02-2022 Note HNO ID: [id number] Author: Fuentes Amaral MD Service: ? Author Type: Physician Type: Progress Notes Filed: 10/02/2022 9:55 AM Note Text: HEMATOLOGY FOLLOW UP October 02, 2022 (Yves) Some elements in this clinic note that are critical to medical decision making have been carefully reviewed and included from a prior clinic note dated:April 17, 2022 (Yves) AND April 03, 2022 (Yves) PCP and other physicians involved in patient's [...] arms. Figers an (more content not included)... [facility] 10-02-2022 Instructions Fuentes Amaral MD - 10/02/2022 9:51 AM EDT Continue Amicar prior to dentist appointment. RTC in 12 months - cbc, cmp documented in this encounter 10-02-2022 History of Present illness Narrative Images from the original note were not included. 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 Fuentes Amaral MD, CPE Hematology and Oncology Services Provided at: [place], [place] CC: Cas Cronin documented in this encounter 09-05-2022 Hospital Discharge instructions Patient Education 09/05/2022 09:06:17 Kidney Stones, Prtv-rz-Ygnx Kidney Stones Kidney stones are rock-like masses [...] Follow these instructions at home: Medicines Take fron-xpv-dzadqik and prescription medicines only as told by [...] provider. Document Revised: 09/26/2021 Document Reviewed: 09/26/2021 [employer] ([employer]) Patient Education 2022 [employer]. Follow Up Care 02/28/2022 09:04:41 With:LORAINE BURNHAM PA-C, URL Address: [address] [place] [address] When: Unknown [facility] 05-03-2022 Miscellaneous Notes Images from the original note were not included. documented in this encounter 04-26-2022 Note HNO ID: [id number] Author: Bhargavi Saldana PA-C Service: ? Author Type: Physician Receiving And Processing Supervisor Type: Progress Notes Filed: 04/26/2022 1:17 PM Note Text: Headache Center - Follow up Virtual Visit During this COVID-19 pandemic, patient's headache clinic evaluation was scheduled as a virtual visit using the following platform Zoom - patient currently located in [place] Leana Tran was identified by name and [...] visit. Either the patient or their legal real estate representative has been informed of the risks [...] Hypothyroid IBS (i (more content not included)... [facility] 04-26-2022 History of Present illness Narrative Headache Center - Follow up Virtual Visit During this COVID-19 pandemic, patient's headache clinic evaluation was scheduled as a virtual visit using the following platform Zoom - patient currently located in [place] Leana Tran was identified by name and [...] visit. Either the patient or their legal real estate representative has been informed of the risks [...] thrombosis. Unremarkable MRA brain and MRA neck. Tennis Coach: ROBER Transcribe Date/Time: Mar 31 2016 2:40P [...] change which could potentially contribute to headache. Tennis Coach: [facility] Transcribe Date/Time: Jun 27 2021 3:07P Dictated [...] # 1.10 - 3.70 k/uL 1.67 Absolute [place] # 0.10 - 1.20 k/uL 0.37 Absolute Eos # 0.00 - 0.44 k/uL 0.19 Basophils Absolute 0.00 - 0.20 k/uL 0.04 Absolute Immature Granulocyte 0.00 - 0.30 k/uL 0.04 Review of Systems: Review of system: unchanged from the previous visit (sleep patterns, mood, energy, appetite, stress, exercising). Physical Examination: Vital Signs: [facility] 2015 General: well appearing, in no acute distress, alert Pain Behaviors: no pain behaviors observed Neurological: Mental Status: Alert and oriented to person, place and time. Affect is normal. Speech is spontaneous and fluent without dysarthria. Short and senior living memory, cognition and general fund of knowledge [...] 15 minutes Bhargavi Saldana PA-C Headache Section April 26, 2022 documented in this encounter 04-17-2022 Note HNO ID: [id number] Author: Fuentes Amaral MD Service: ? Author [...] Time Spent: 5 minutes Fuentes Amaral MD [facility] 04-17-2022 Instructions Fuentes Amaral MD - 04/17/2022 5:31 PM EDT Keep prior appointment September documented in this encounter 04-17-2022 History of Present illness Narrative AMBULATORY [...] Fuentes Amaral MD documented in this encounter 04-10-2022 Note HNO ID: [id number] Author: Meena Grissom MD Service: ? Author Type: Physician Type: Progress Notes Filed: 04/11/2022 3:50 PM Note Text: Sleep Disorders Center Virtual Visit Follow up/ Established patient visit Date of last visit : 11/16/2021 Interval history : Here for follow up for KATELIN and restless legs She had recent hospitalization at [place], was advised to switch to bilevel she [...] or near accidents due to drowsy drivin Bon[place]arte Sleepiness Scale 11/13/2021 04/09/2022 Score 7 (No [...] mg tabletTake 10- (more content not included)... [facility] 04-03-2022 Note HNO ID: [id number] Author: Fuentes Amaral MD Service: ? Author Type: Physician Type: Progress Notes Filed: 04/03/2022 11:08 AM Note Text: HEMATOLOGY FOLLOW UP April 03, 2022 (Yves) Some elements in this clinic note that are critical to medical decision making have been carefully reviewed and included from a prior clinic note dated:February 10, 2022 (Yves) PCP and other physicians involved in patient's [...] rashes Breaking ou (more content not included)... [facility] 04-03-2022 Instructions Fuentes Amaral MD - 04/03/2022 11:06 AM EST Platelet electron microscopy pending drawn Call results when available - anticipate 2 weeks Consider functional medicine referral for DM and PCOS Keep appointment with Dr. Stephon Cronin's group for POTS Trial of Amicar prior to dentist appointment. documented in this encounter 04-03-2022 History of Present illness Narrative Images from the original note were not included. 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 Fuentes Amaral MD, CPE Hematology and Oncology Services Provided at: [place], [place] CC: Cas Cronin documented in this encounter 04-03-2022 Nurse Note Patient is still bruising. Elizabeth Rodriges MA documented in this encounter 04-03-2022 Miscellaneous Notes Images from the original note were not included. documented in this encounter 03-21-2022 Miscellaneous Notes Received call from pt stating she was not able to get her PLT lab test done in [place] d/t them no longer doing them on or fridays so she needs to move out her appt with Dr Salas so she has time to try again to get lab done. Pt transferred to senior front end web developer to reschedule f/u appt. Yancy Cook RN documented in this encounter 02-28-2022 Hospital Discharge instructions Patient Education 02/28/2022 [...] reconstructed. Follow these instructions at home: Take tcsh-ufi-omahvdd and prescription medicines only as told by [...] 02/18/2016 Document Revised: 09/04/2018 Document Reviewed: 09/04/2018 [employer] ([employer]) Patient Education 2020 Voxound. Follow Up Care 12/22/2021 14:08:59 With:TEJ HEREDIA, LORAINE Razo, URL Address: [address] [place] [address] When: Unknown [facility] 02-27-2022 Note HNO ID: [id number] Author: Tesfaye Whitman RPh Service: ? Author Type: Pharmacist Type: Progress Notes Filed: 02/27/2022 10:33 AM Note Text: Refill Authorization Consent Leana Tran was encountered by text or mychart message to obtain consent for pharmacist managed refill authorization. Patient gives consent to the authorization of prescriptions by a pharmacist. Tesfaye Whitman RPh 02/27/2022 [facility] 02-27-2022 History of Present illness Narrative Refill Authorization Consent Leana Tran was encountered by text or mychart message to obtain consent for pharmacist managed refill authorization. Patient gives consent to the authorization of prescriptions by a pharmacist. Tesfaye Whitman RPh 02/27/2022 documented in this encounter 02-24-2022 Miscellaneous Notes PA submitted via covermymeds. Kurt TRAN ([place]: [id number]) Your information has been submitted to [facility]. To check for an updated outcome later, reopen this PA request from your dashboard. If Saad has not responded to your request within 24 hours, contact [facility] at . If you think there may be a problem with your PA request, use our live chat feature at the bottom right. Vikash Oreilly RN February 24, 2022 3:16 PM documented in this encounter 02-20-2022 Miscellaneous Notes Ok with me Informed Lindsey of Dr Salas's response. Lindsey states that [facility] will only except if pt was drawn on and pt was drawn on Sunday so they are sending it out today to [place], unless Dr Salas would like pt to come back in for a redraw so it can be sent to [facility]. Yancy Cook RN [place] would be good. Received call from Melodie at [facility] in [place] stating pt had her platelet transmission lab done there but it is a lab test that they send out to other labs and they wanted to know if Dr Salas has a preference on what lab they send it to d/t different labs running the test different ways. ZACH: Please advise. Yancy Cook RN documented in this encounter 02-17-2022 Miscellaneous Notes Records faxed to Dr. Cronin. Pt would like referral sent to Stephon Cronin MD @ [facility]. Lauren, will you please fax records when order is signed? Demo in your box, thanks! PSS: Please set pt up with referral to her preferred giver. Thank you. Yancy Cook RN Received call from pt stating Dr Salas told her to see giver but their office needs a referral. ZACH: Order pending, please review and sign. Yancy Cook RN documented in this encounter 02-13-2022 Note HNO ID: [id number] Author: Meena Grissom MD Service: ? Author Type: Physician Type: Progress Notes Filed: 02/13/2022 8:31 PM Note Text: Discussed with scheduling, appointment will be rescheduled. Patient logged in late- had technical issues with Zoom. [facility] 02-13-2022 History of Present illness Narrative Discussed with scheduling, appointment will be rescheduled. Patient logged in late- had technical issues with Zoom. documented in this encounter 02-10-2022 Note HNO ID: [id number] Author: Fuentes Amaral MD Service: ? Author Type: Physician Type: Progress Notes Filed: 02/12/2022 2:10 PM Note Text: HEMATOLOGY FOLLOW UP February 10, 2022 (Yves) Some elements in this clinic note that are critical to medical decision making have been carefully reviewed and included from a prior clinic note dated: November 18, 2021 (Yves) PCP and other physicians involved in patient's [...] despite hysterectomy causin (more content not included)... [facility] 02-10-2022 Instructions Fuentes Amaral MD - 02/10/2022 3:00 PM EST Platelet electron microscopy Call results when available Consider functional medicine referral for DM and PCOS documented in this encounter 02-10-2022 History of Present illness Narrative Images from the original note were not included. 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 Fuentes Amaral MD, CPE Hematology and Oncology Services Provided at: [place], [place] CC: Cas Dowell documented in this encounter 02-01-2022 Miscellaneous Notes Images from the original note were not included. documented in this encounter 01-23-2022 Hospital Discharge instructions Patient Education 01/23/2022 [...] degrees Follow Up Care 12/22/2021 14:21:18 With:LORAINE BURNHAM Address: [address] [place] [address] Business (1) When:6 weeks Comments:Call for followup appointment in about six weeks. As discussed, PONCE Hargrove can further follow up on the left kidney abnormality noted on the kidney ultrasound. 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 [facility] 01-16-2022 Note HNO ID: [id number] Author: Bhargavi Saldana PA-C Service: ? Author Type: Physician Receiving And Processing Supervisor Type: Progress Notes Filed: 01/16/2022 8:58 AM Note Text: Headache Center - Follow up Virtual Visit During this COVID-19 pandemic, patient's headache clinic evaluation was scheduled as a virtual visit using the following platform Zoom - patient currently located in [place] Leana Tran was identified by name and [...] from last visit: 10/19/21 with me IMPRESSION: Lenaa Tran is a 35 year old year [...] Palpitations Platelet di (more content not included)... [facility] 01-16-2022 History of Present illness Narrative Headache Center - Follow up Virtual Visit During this COVID-19 pandemic, patient's headache clinic evaluation was scheduled as a virtual visit using the following platform Zoom - patient currently located in [place] Leana Tran was identified by name and [...] thrombosis. Unremarkable MRA brain and MRA neck. Tennis Coach: [facility] Transcribe Date/Time: Mar 31 2016 2:40P Dictated [...] change which could potentially contribute to headache. Tennis Coach: [facility] Transcribe Date/Time: Jun 27 2021 3:07P Dictated [...] visit due to nature of virtual visit. [facility] 2015 General: well appearing, in no acute distress, alert Pain Behaviors: no pain behaviors observed Neurological: Mental Status: Alert and oriented to person, place and time. Affect is normal. Speech is spontaneous and fluent without dysarthria. Short and terminal worker memory, cognition and general fund of knowledge [...] migrainosus, not intractable (primary encounter diagnosis) Leana S Marc is a 36 year old year old [...] 10 minutes Bhargavi Saldana PA-C Headache Section January 16, 2022 documented in this encounter 01-02-2022 Note HNO ID: [id number] Author: Jenny Borden Service: ? Author Type: ? Type: Progress Notes Filed: 01/02/2022 4:24 AM Note Text: Sleep Study Check-In Documentation Date: January 02, 2022 Name: Leana Tran Patient was accompanied by Self. Location: [place] Latex allergy: Yes Tape allergy: No Current medications were reviewed with the patient:Yes Sleep aid taken by patient for the sleep study: [place] of sleep aid: Not Applicable Procedure was [...] ordering provider regarding test results Jenny Borden [facility] 01-02-2022 History of Present illness Narrative Sleep Study Check-In Documentation Date: January 02, 2022 Name: Leana Tran Patient was accompanied by Self. Location: [place] Latex allergy: Yes Tape allergy: No Current medications were reviewed with the patient:Yes Sleep aid taken by patient for the sleep study: [place] of sleep aid: Not Applicable Procedure was [...] results Jenny Borden documented in this encounter 2021 Evaluation + Plan note Diagnostic Tests PendingUrine Cytology ([facility]) 12/21/21 [facility] [place] 2021 Hospital Discharge instructions Patient Education 2021 [...] Follow these instructions at home: Medicines Take qysk-giy-tchrpsr and prescription medicines only as told by [...] or the blood stops without treatment. Take fsaj-grn-racmgwi and prescription medicines only as told by your health care provider. Drink enough fluid to keep your urine clear or pale yellow. This information is not intended to replace advice given to you by your health care provider. Make sure you discuss any questions you have with your health care provider. Document Released: 01/22/2006 Document Revised: 06/18/2019 Document Reviewed: 02/24/2017 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 Patient Education 2019 [employer] Follow Up Care 11/28/2021 10:05:42 With:[facility] [place] Address: [address] [address] Business (1) When: Unknown Comments:our java analyst will be contacting you for follow-up [facility] 12-20-2021 Miscellaneous Notes Results left on patient voicemail. Leana Tran's bleeding disorders panel through [email or web address] was non-diagnostic or negative for a pathogenic variant. 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 This is a common polymorphism in the general population present in ~10% of individuals of white ancestry and ~1/3 of those of South ancestry. This polymorphism is not expected to contribute to disease risk for the patient. Please see USDS message for further discussion. CARINE Carrillo Licensed, Certified Genetic Counselor Epic CC: Dr. Fuentes Craig documented in this encounter 12-15-2021 Note HNO ID: [id number] Author: Keira Harper Service: ? Author Type: ? Type: Progress Notes Filed: 01/03/2022 2:00 PM Note Text: ACTIGRAPHY DEVICE # [id number] Date shipped out 12/15/2021 [employer] MAIL OUT TRACKING NUMBER [phone] [id number] [employer] RETURN TRACKING NUMBER [phone] [id number], Amber [facility] 12-15-2021 History of Present illness Narrative ACTIGRAPHY DEVICE # [id number] Date shipped out 12/15/2021 [employer] MAIL OUT TRACKING NUMBER [phone] [id number] [employer] RETURN TRACKING NUMBER [phone] [id number], Amber documented in this encounter 12-02-2021 Note HNO ID: [id number] Author: Ofelia Nelson Service: ? Author Type: [...] Ofelia Allen RN Procedure Finish Time: 933 [facility] 12-02-2021 History of Present illness Narrative UNIVERSAL PROTOCOL / SAFETY CHECKLIST Procedure to be performed: [facility]: TILT Sign in Communication: Completed Time Out: Team Confirms the Correct Patient, Correct Procedure, Correct Site and Site Marking, Correct Position (if applicable). Time: 08 STAFF: Aby Affirmation of Time Out: YES [...] Finish Time: 933 documented in this encounter 12-01-2021 Miscellaneous Notes Attempted to contact the patient. Left voice message. Filomena MARIE ----- Message from Micheal Perez MD sent at 11/30/2021 8:33 PM EDT ----- Regarding: Event monitor results. Please call with results. Micheal Perez MD November 30, 2021 8:33 PM documented in this encounter 11-18-2021 Note HNO ID: [id number] Author: Fuentes Amaral MD Service: ? 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 Her step-father has also . Updated Visit, November 10, 2021: Leana is 35 yo and is having genetic testing done to ascertain a sera (more content not included)... [facility] 11-18-2021 Instructions Fuentes Amaral MD - 11/18/2021 2:09 PM EDT 1. RTC and Repeat exam in 3 months - no labs 2. Review platelet genetics on return. documented in this encounter 11-18-2021 History of Present illness Narrative Images from the original note were not included. 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 Fuentes Amaral MD, CPE Hematology and Oncology Services Provided at: [place], [place] CC: Cas Dowell documented in this encounter 11-16-2021 Instructions Meena Grissom MD - 11/16/2021 [...] schedule your sleep study please call the Sleep Disorders Center at [phone]. The [phone] phone number will be answered by the [...] If you work rotating shifts, ask your terminal operations manager to schedule a natural, clockwise rotation. [...] A longer nap before reporting for a mini shifter is also beneficial. Exposure to bright light on the job can improve alertness during mini shifter work. Arrange for someone to pick you up after a mini shifter, or take a bus or cab home. [...] for insomnia. The cost is $40. Use www.[employer] which to access the Wellness website to purchase the program ( [...] provider and give them the CPT code: 26664 You will be asked to wear the [...] about your actigraphy device, please call the heat treatment technician at: [phone] ( During Hours: 8am-4:30pm) ? -Discussed pathophysiology of Sleep paralysis, and possible triggering factors which include sleep deprivation, untreated obstructive sleep apnea. Other possible etiologies include circadian shift work,anxiety disorders and medications. - Follow up in 2 months documented in this encounter 11-16-2021 Miscellaneous Notes Images from the original note were not included. Images from the original note were not included. documented in this encounter 11-16-2021 Note HNO ID: [id number] Author: Meena Grissom MD Service: ? Author Type: Physician Type: Progress Notes Filed: 11/16/2021 2:37 PM Note Text: [facility] New Patient Evaluation This [...] on CPAP , her physician is at [facility]. Has a Resmed device, uses it [...] or near accidents due to drowsy drivin Bonaparte Sleepiness Scale 11/13/2021 Score 7 (No daytime [...] 50. Five p (more content not included)... [facility] 11-16-2021 History of Present illness Narrative Images from the original note were not included. [facility] New Patient Evaluation This [...] the encounter were: Meena Grissom MD Leana Marc HPI: Leana Tran is a 35 year [...] on CPAP , her physician is at [facility]. Has a Resmed device, uses it [...] or near accidents due to drowsy drivin Bonaparte Sleepiness Scale 11/13/2021 Score 7 (No daytime [...] (Discontinued) PRIOR SLEEP STUDIES: Sleep centre at [facility] (report not available at time of consultation) [...] uncontrolled Hypertension Mother Heart Attack Mother First [place] at age 51 Cardiomyopathy Mother at age [...] If you work rotating shifts, ask your terminal operations manager to schedule a natural, clockwise rotation. [...] A longer nap before reporting for a mini shifter is also beneficial. Exposure to bright light on the job can improve alertness during mini shifter work. Arrange for someone to pick you up after a mini shifter, or take a bus or cab home. [...] for insomnia. The cost is $40. Use www.[employer].com which to access the Wellness website to purchase the program ( [...] which included preparing to see the patient, dqcs-xm-cupy patient care, performing a medically appropriate examination, counseling and educating the patient/family/caregiver and ordering medications/devices. documented in this encounter 11-15-2021 Miscellaneous Notes Images from the original note were not included. documented in this encounter 11-12-2021 Note HNO ID: [id number] Author: Fuentes Amaral MD Service: ? Author [...] Time Spent: 10 minutes Fuentes Amaral MD [facility] 11-12-2021 History of Present illness Narrative AMBULATORY [...] Fuentes Amaral MD documented in this encounter 11-07-2021 Miscellaneous Notes Order for nebulizer supplies resent to [facility]. Call to them inquiring about any additional information they may need. Landen Clark APRN.CNP documented in this encounter 11-07-2021 Miscellaneous Notes Contacted [employer]. Order has not been received. Discussed with Javier from [facility] lab. Order is currently being processed. Filomena MARIE documented in this encounter 11-03-2021 Note HNO ID: [id number] Author: Fuentes Amaral MD Service: ? Author Type: Physician Type: Progress Notes Filed: 11/06/2021 5:22 PM Note Text: HEMATOLOGY FOLLOW UP November 03, 2021 (Yves) Some elements in this clinic note that [...] workup. PLAN: 1. Need Mammogram results from [place] 2. Proceed with genetic testing for platelet [...] Asthma - Depression (more content not included)... [facility] 11-03-2021 Instructions Fuentes Amaral MD - 11/03/2021 11:38 AM EDT 1. Need Mammogram results from [place] 2. Proceed with genetic testing for platelet disorder 3. Call next week to review mammogram results documented in this encounter 11-03-2021 History of Present illness Narrative Images from the original note were not included. HEMATOLOGY FOLLOW UP November 03, 2021 (Yves) Some elements in this clinic note that [...] workup. PLAN: 1. Need Mammogram results from [place] 2. Proceed with genetic testing for platelet [...] which included preparing to see the patient, tkjw-gs-hdbz patient care, completing clinical documentation, obtaining and/or reviewing separately obtained history, performing a medically appropriate examination, counseling and educating the patient/family/caregiver, ordering medications, tests, or procedures, independently interpreting results (not separately reported) and communicating results to the patient/family/caregiver. Fuentes Amaral MD, CPE Hematology and Oncology Services Provided at: [place], [place] CC: Cas Dowell documented in this encounter 10-31-2021 Note HNO ID: [id number] Author: Landen Clark APRN.MACY Service: ? Author [...] as much as able. Landen Clark APRN.MACY [facility] 10-31-2021 Note HNO ID: [id number] Author: Landen lCark APRN.MACY Service: ? Author Type: Nurse Practitioner Type: Progress Notes Filed: 10/31/2021 2:03 PM Note Text: [facility] Virtual Follow-up Evaluation This is a virtual visit using [employer] video visit. It required patient-provider interaction for [...] an sma group (more content not included)... [facility] 10-30-2021 Miscellaneous Notes I don't think I need labs for her. If needed, please add lab orders for appointment on 11/03/21. Sharon Peterson Ma documented in this encounter 10-24-2021 Note HNO ID: [id number] Author: Cindy Rushing MD Service: ? Author Type: Physician Type: Progress Notes Filed: 10/24/2021 12:28 PM Note Text: VIRTUAL VISIT PROGRESS NOTE This is a virtual visit using [employer] video visit. It required patient-provider interaction for [...] axillary lymphadenopathy. She is also following in [facility] clinic. She has noticed a rash that [...] controlled, she is following with Pulmonary and [facility] clinic She recently received iodinated contrast with pre-medication and was able to tolerate As per prior HPI: Chronic rhinitis Sinus/lung infections Longstanding history of recurrent pneumonia 1-2 times per year and recurrent sinus infections. Had sinus surgery which helped reduce sinus infections- however she has had 2 infections in the last 2 months. Immunodeficiency evaluation performed by an assistant hall director in [place] showed protective strep pneumo titers after vaccination [...] at the ER Last December saw an assistant hall director- skin testing was negative to environmental allergies [...] managed by her family medicine physician and electrical continuity inspector. Has had 0 ER, hospitalization and ICU [...] cyst of pituitary (more content not included)... [facility] 10-24-2021 History of Present illness Narrative VIRTUAL VISIT PROGRESS NOTE This is a virtual visit using [employer] video visit. It required patient-provider interaction for [...] axillary lymphadenopathy. She is also following in [facility] clinic. She has noticed a rash that [...] controlled, she is following with Pulmonary and [facility] clinic She recently received iodinated contrast with pre-medication and was able to tolerate As per prior HPI: Chronic rhinitis Sinus/lung infections Longstanding history of recurrent pneumonia 1-2 times per year and recurrent sinus infections. Had sinus surgery which helped reduce sinus infections- however she has had 2 infections in the last 2 months. Immunodeficiency evaluation performed by an assistant hall director in [place] showed protective strep pneumo titers after vaccination [...] at the ER Last December saw an assistant hall director- skin testing was negative to environmental allergies [...] managed by her family medicine physician and electrical continuity inspector. Has had 0 ER, hospitalization and ICU [...] uncontrolled Hypertension Mother Heart Attack Mother First [place] at age 51 Cardiomyopathy Mother at age [...] or contact dermatitis- advise follow-up with local [employer] Allergic rhinitis, unspecified seasonality, unspecified trigger Comment/Plan: Well-controlled, continue Flonase and oral antihistamine Moderate persistent asthma without complication Comment/Plan: Controlled, continue follow-up with Pulmonary and Covid-19 [facility] Cindy Rushing MD documented in this encounter 10-20-2021 Note HNO ID: [id number] Author: Micheal Perez MD Service: ? Author Type: Physician Type: Progress Notes Filed: 10/20/2021 5:28 PM Note Text: Heart, Vascular AND Thoracic [place] Department of Cardiac Surgery VIRTUAL VIDEO VISIT [...] uncontrolled Hypertension Mother Heart Attack Mother First [place] at age 51 Cardiomyopathy Mother at age [...] mouth daily at (more content not included)... [facility] 10-20-2021 Note HNO ID: [id number] Author: Micheal Perez MD Service: ? Author [...] Monitor: Extended Monitoring-[employer] Patch Enrollment Dates: 11/09/2021-11/22/2021 [facility] 10-20-2021 History of Present illness Narrative Heart, Vascular & Thoracic [place] Department of Cardiac Surgery VIRTUAL VIDEO VISIT [...] uncontrolled Hypertension Mother Heart Attack Mother First [place] at age 51 Cardiomyopathy Mother at age [...] 5:26 PM This note was generated using Dragon voice recognition system. Please excuse any typographical errors. I spent 30 minutes with the patient; greater than 50% of the time was spent in counselling and co-ordinating the care based on my impression and plan above. documented in this encounter 10-19-2021 Note HNO ID: [id number] Author: Bhargavi Saldana PA-C Service: ? Author Type: Physician Receiving And Processing Supervisor Type: Progress Notes Filed: 10/19/2021 2:41 PM [...] gland Asthma Bulg (more content not included)... [facility] 10-19-2021 Instructions Bhargavi Saldana PA-C - 10/19/2021 2:31 PM EDT Consider restart Botox PREEMPT Protocol Discontinue Emgality Start Ajovy - once monthly - wait until 11/10 to inject the first dose Home Delivery Pharmacy: [phone] Consider aimovig or vyepti Please follow up in 3 months or sooner if needed documented in this encounter 10-19-2021 History of Present illness Narrative Headache Center - Follow up Virtual Visit During this COVID-19 pandemic, patient's headache clinic evaluation was scheduled as a virtual visit using the following platform Mehul Tran was identified by name and and [...] fluticasone (FLONASE) 50 mcg/actuation nasal spray^Use 1 [place] in each nostril twice daily.^Disp: 3 Each^Rfl: [...] thrombosis. Unremarkable MRA brain and MRA neck. Tennis Coach: PSCB Transcribe Date/Time: Mar 31 2016 2:40P [...] change which could potentially contribute to headache. Tennis Coach: ROBER Transcribe Date/Time: Jun 27 2021 3:07P [...] Abs Lymph 1.00 - 4.00 k/uL 1.45 [place]% % 4.4 Abs [place] <0.87 k/uL 0.30 Eosin% % 2.5 Abs [...] spontaneous and fluent without dysarthria. Short and terminal worker memory, cognition and general fund of knowledge [...] 20 minutes Bhargavi Saldana PA-C Headache Section October 19, 2021 documented in this encounter 10-14-2021 Note HNO ID: [id number] Author: Judith Valdes PSYD Service: ? Author Type: Physician Type: Progress Notes Filed: 10/17/2021 10:05 PM Note Text: [facility] Psychology Progress Note Billing codes: Keisha PSYCHOLOGY: FOLLOW-UP APPOINTMENT PROGRESS NOTE- Virtual Visit Due to the federal emergency declaration and the need for ongoing mental health services, the following visit was completed virtually and informed consent obtained orally to reduce the risk of COVID-19 exposure. Oral consent to services related to virtual visits was obtained after information was sent via [employer] or read to patient if [employer] not available. Leana Tran 10/14/2021 [id number] PROVIDER: Judith Valdes PSYD CPT Code: 1286805 Virtual PSYTX PT AND/FAMILY 45 MINS Time [...] Mindfulness meditation practice Follow Up: 2 weeks Judith Valdes Psy.D. Associate Staff, [facility] 10-14-2021 History of Present illness Narrative [facility] Psychology Progress Note Billing codes: Keisha PSYCHOLOGY: FOLLOW-UP APPOINTMENT PROGRESS NOTE- Virtual Visit Due to the federal emergency declaration and the need for ongoing mental health services, the following visit was completed virtually and informed consent obtained orally to reduce the risk of COVID-19 exposure. Oral consent to services related to virtual visits was obtained after information was sent via [employer] or read to patient if [employer] not available. Leana Tran 10/14/2021 [id number] PROVIDER: Judith Valdes PSYD CPT Code: 1646128 Virtual PSYTX PT &/FAMILY 45 MINS Time [...] Mindfulness meditation practice Follow Up: 2 weeks Judith Valdes Psy.D. Associate Staff, [facility] documented in this encounter 10-12-2021 Note HNO ID: [id number] Author: Ruth Villaseñor MD Service: ? Author Type: Physician Type: Progress Notes Filed: 10/12/2021 2:42 PM Note Text: Rheumatology Outpatient Clinic Date of Service: 10/12/2021 Patient: Leana Tran Medical Record: [id number] Primary Care Physician: Cas Dowell MD Referring [...] HX 2009 exploration (more content not included)... [facility] 10-12-2021 History of Present illness Narrative Images from the original note were not included. Rheumatology Outpatient Clinic Date of Service: 10/12/2021 Patient: Leana Tran Medical Record: [id number] Primary Care Physician: Cas Dowell MD Referring [...] uncontrolled Hypertension Mother Heart Attack Mother First [place] at age 51 Cardiomyopathy Mother at age [...] (FLONASE) 50 mcg/actuation nasal spray Use 1 [place] in each nostril twice daily. zonisamide (ZONEGRAN) [...] AM (Final result) Impression: IMPRESSION: See Result. Tennis Coach: ROBER Transcribe Date/Time: Sep 30 2021 2:15P... [...] In certain cases, a referral to a lead sustainability specialist may be required, in patients who [...] Villaseñor MD Rheumatology documented in this encounter 09-30-2021 History of Present illness Narrative Radiology [...] 2021 9:53 AM documented in this encounter 09-27-2021 History of Present illness Narrative PULM FUNCTION SMARTBLOCK: Provider: Landen Clark APRN.RIFLE CASE REPAIRER Assisting Tech: Yanira Brsyon RRT Spirometry w/BD: 1 DLCO: 1 LV - Box: 1 6 MW: 1 documented in this encounter 09-22-2021 Miscellaneous Notes Spoke with provider through secure chat-due to triage, worsening symptoms, and time of day sent patient to ED Patient stated that will head to [facility] shortly to be evaluated. Thank you, Kari [...] Landen Clark APRN.MACY documented in this encounter 09-21-2021 History of Present illness Narrative Images from the original note were not included. Rheumatology Outpatient Clinic Date of Service: 09/21/2021 Patient: Leana Tran Medical Record: [id number] Primary Care Physician: Cas Dowell MD Referring Provider: SELF Last Rheumatology visit: None at Chief complaint: Consult (Patient states she was at [facility] on 09/19/21, seen Landen Clark APRN. [...] of Consult (Patient states she was at [facility], seen Landen Clark APRN. [...] uncontrolled Hypertension Mother Heart Attack Mother First [place] at age 51 Cardiomyopathy Mother at age [...] (FLONASE) 50 mcg/actuation nasal spray Use 1 [place] in each nostril twice daily. zonisamide (ZONEGRAN) [...] repeat CBC, CMP, C3, C4 ordered at [facility]. To evaluate for causes that could contribute to her pain, I will follow CBC with diff, comprehensive metabolic panel,TSH, 25-hydroxy vitamin D, vitamin B12 levels, ordered at [facility]. Additionally, because sleep apnea can cause [...] In certain cases, a referral to a lead sustainability specialist may be required, in patients who [...] which included preparing to see the patient, bzja-pd-fjnp patient care, completing clinical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 No drift Movement/Coordination Continuous dance-like movement of legs and torso Gait Unable to stand without upper body assistance. Slow station and stride. No festination or retropulsion. Gait is bizarre and cautious. Romberg's sign is absent. Drowsy, intermittently engaged, facial flushing noted. Neurological Exam Assessment & Plan 06/27/2021 - Neuromuscular, Peter Knight APRN.RIFLE CASE REPAIRER ASSESSMENT Patient presents today as follow up [...] gradually rise. 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 Peter Kinght APRN.MACY documented in this encounter 06-16-2021 Miscellaneous Notes I spoke with the [...] Yan Bass MD documented in this encounter 06-14-2021 Miscellaneous Notes Pt questions if MG labs are back. (shows seen' in [facility]) Negative results. Also, stopped doxycycline she was taking for sinus infection d/t new sx of bilat LE numbness, rt foot spasms, sensation of heavy body. Continues to have bilat leg spasms and numbness. BP 130-140/70-90. Questions if d/t med or new neuro issue. Leighann Alczaar RN documented in this encounter 06-14-2021 History of Present illness Narrative Images [...] 7.5 tablets/week. She is following a local retail advertising executive who adjusted dose for her. Most recent [...] which included preparing to see the patient, [id number] patient care, completing clinical documentation, obtaining and/or reviewing separately obtained history, performing a medically appropriate examination, counseling and educating the patient/family/caregiver, ordering medications, tests, or procedures. This note was dictated using Ting[employer] speech recognition software and may contain some errors that were a result of the program not accurately transcribing what was dictated. Jackelyn Marques M.D., M.Sc. Attending Archery Instructor [facility] [place], Office: Appointments: documented in this encounter 06-14-2021 Nurse Note Thank you for choosing the Department of Endocrinology, Diabetes and Metabolism. Did you know that you need to call 48 hours in advance of your scheduled visit, if you are unable to make your appointment? The [facility] [place] thanks you for your commitment, because patients not showing to their appointment results in a lost opportunity for patients to receive [facility] care at the . To Cancel an appointment, please choose one of the following: - Call the Appointment Call Center at [phone] - From [facility], Go to Appointments Cancel Appts If cancelling, consider your need to reschedule to prevent further delays in your care. To Schedule an appointment, please choose one of the following: - Call the Appointment Call Center at [phone] - From [facility], Go to Appointments Request an Appt documented in this encounter 06-14-2021 History of Present illness Narrative UNIVERSAL [...] [place] [employer] documented in this encounter 06-10-2021 History of Present illness Narrative HEMATOLOGY [...] to see endocrinology, neurology and cardiology at [facility] next week. ROS is negative except [...] which included preparing to see the patient, [id number] patient care, completing clinical documentation, obtaining and/or reviewing separately obtained history, performing a medically appropriate examination, counseling and educating the patient/family/caregiver, ordering medications, tests, or procedures, independently interpreting results (not separately reported) and communicating results to the patient/family/caregiver. CC: Peng Manley documented in this encounter 05-31-2021 Miscellaneous Notes Outside medical records received and scanned in for review. documented in this encounter 05-20-2021 Hospital Discharge instructions Shanna Rivas APRN [...] Pain (Italian)Abdominal Pain (Italian)documented in this encounter [facility]: 04-16-2021 Hospital Discharge instructions Shanna Rivas APRN - CNP - 04/16/2021 Increase your fluid intake. Follow-up with both PCP and [employer] for reevaluation. Take Reglan as prescribed. Talk to your [employer] about the left ovarian cyst seen on CT as well as possible mild fluid in your fallopian tube. Take all medications as prescribed. Return to the ER for increased pain, fevers, difficulty breathing, vomiting or new or worsening signs or symptoms. The following attachments cannot be sent through Care Everywhere.Ovarian Cyst: Functional (Italian)Nausea and Vomiting (Italian)documented in this encounter [facility]: 11-01-2020 Hospital Discharge instructions Araseli Barrett [...] (COVID-19): General Info (Italian)documented in this encounter [facility]: 09-06-2020 Note HNO ID: [id number] Author: Lis Moraes MD Service: ? Author [...] - Tolerated procedure well Lis Moraes MD [facility] 09-06-2020 Note HNO ID: [id number] Author: Lis Moraes MD Service: ? Author Type: Physician Type: Progress Notes Filed: 09/06/2020 3:10 PM Note Text: PROGRESS NOTE- HEADACHE SERVICE DATE: September 06, 2020 Location: [facility] Participants: patient and provider [...] bleeds - Lavender (more content not included)... [facility] Evaluation + Plan note Future Appointments Appointment Date:02/28/2022 08:30:00 AM Scheduled Provider:LORAINE BURNHAM PA-C Location:[facility] Appointment Type:URO Office Visit [facility] Evaluation + Plan note Future Appointments Appointment Date:08/30/2022 03:00:00 PM Scheduled Provider:LORAINE BURNHAM PA-C Location:[facility] Appointment Type:URO Office Visit [facility] Evaluation + Plan note Future Appointments Appointment Date:09/11/2023 09:00:00 AM Scheduled Provider:LORAINE BURNHAM PA-C Location:[facility] Appointment Type:URO Office Visit [facility] Evaluation note Diagnosis Strain of lumbar region, initial encounter- Primary documented in this encounter [employer] Phone: evaluation note* Diagnosis COVID-19- Primary documented in this encounter [facility]: evaluation note* Diagnosis Intractable nausea and vomiting- Primary Persistent vomiting Hydrosalpinx Chronic salpingitis and oophoritis Left ovarian cyst Other and unspecified ovarian cyst documented in this encounter [facility]: evaluation note* Diagnosis Chest pain, unspecified type- Primary Abdominal pain, acute, right lower quadrant Abdominal pain, right lower quadrant documented in this encounter [employer]: evaluation note* Diagnosis Urticaria- Primary Urticaria, unspecified Moderate persistent asthma with exacerbation Unspecified asthma, with exacerbation documented in this encounter [facility]: evaluation note* Diagnosis Coagulopathy (HCC)- Primary Other and unspecified coagulation defects documented in this encounter [facility]* Diagnosis Screening for endocrine disorder- Primary Primary hypothyroidism Unspecified hypothyroidism documented in this encounter [facility]* Diagnosis Screening for endocrine disorder- Primary documented in this encounter [facility]* Diagnosis Disorder of autonomic nervous system Unspecified disorder of autonomic nervous system [facility] Diagnosis Spasm of muscle- Primary Acute nonspecific chest pain with low risk of coronary artery disease documented in this encounter [employer] [facility]: evaluation note* Diagnosis Worsening headaches- Primary Headache Maxillary sinus cyst Other diseases of nasal cavity and sinuses Muscle spasms of lower extremity, unspecified laterality Akathisia Abnormal involuntary movements Blurred vision Other specified visual disturbances Chorea Other choreas documented in this encounter [facility]* Diagnosis Coagulopathy (HCC)- Primary Other and unspecified coagulation defects 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 documented in this encounter [facility]* Diagnosis Screening for endocrine disorder- Primary documented in this encounter [facility]* Diagnosis Intractable chronic migraine without aura and without status migrainosus- Primary Chronic migraine without aura, with intractable migraine, so stated, without mention of status migrainosus Abnormal involuntary movement Abnormal involuntary movements documented in this encounter [facility]* Diagnosis Allergy, initial encounter- Primary Headaches documented in this encounter [facility]* Diagnosis Bleeding disorder (HCC)- Primary Unspecified hemorrhagic conditions Coagulopathy (HCC) Other and unspecified coagulation defects 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 documented in this encounter [facility]* Diagnosis Screening for endocrine disorder documented in this encounter [facility]* Diagnosis 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) Unspecified hemorrhagic conditions documented in this encounter [facility]* Diagnosis History of COVID-19- Primary Symptomatic bradycardia Other specified cardiac dysrhythmias Blood pressure instability Other abnormal clinical finding documented in this encounter [facility] note* Diagnosis Angioedema, initial encounter- Primary Urticaria Urticaria, unspecified Hoarseness of voice Dysphonia Allergic rhinitis, unspecified seasonality, unspecified trigger Adverse effect of drug, initial encounter Allergic reaction to contrast material, initial encounter Adverse food reaction, initial encounter Moderate persistent asthma without complication Unspecified asthma Gastroesophageal reflux disease, unspecified whether esophagitis present documented in this encounter [facility] note* Diagnosis Screening for endocrine disorder Muscle spasms of lower extremity, unspecified laterality Akathisia Abnormal involuntary movements documented in this encounter [facility] note* Diagnosis Chronic migraine without aura, intractable, without status migrainosus- Primary documented in this encounter [facility] note* Diagnosis Depression, unspecified depression type- Primary Anxiety Anxiety state, unspecified Intractable chronic migraine without aura and without status migrainosus Chronic migraine without aura, with intractable migraine, so stated, without mention of status migrainosus Abnormal involuntary movement Abnormal involuntary movements documented in this encounter [facility] note* Diagnosis White coat syndrome with hypertension- Primary documented in this encounter [facility] note* Diagnosis Intractable chronic migraine without aura and without status migrainosus Chronic migraine without aura, with intractable migraine, so stated, without mention of status migrainosus Abnormal involuntary movement Abnormal involuntary movements documented in this encounter [facility] note* Diagnosis Chronic RLQ pain- Primary Abdominal pain, right lower quadrant Diastasis recti Diastasis of muscle documented in this encounter [facility] note* Diagnosis Chronic RLQ pain- Primary Abdominal pain, right lower quadrant documented in this encounter [facility] note* Diagnosis Symptomatic bradycardia Other specified cardiac dysrhythmias Blood pressure instability Other abnormal clinical finding History of COVID-19 documented in this encounter [facility] note* Diagnosis White coat syndrome without diagnosis of hypertension- Primary Elevated blood pressure reading without diagnosis of hypertension documented in this encounter [facility] note* Diagnosis Diffuse pain- Primary Generalized pain Decreased activity tolerance Physical deconditioning Debility, unspecified Orthostatic intolerance documented in this encounter [facility] note* Diagnosis Long COVID- Primary Diffuse pain Generalized pain Decreased activity tolerance PTSD (post-traumatic stress disorder) Posttraumatic stress disorder documented in this encounter [facility] note* Diagnosis Allergic reaction, initial encounter- Primary documented in this encounter [facility] [employer] Work Phone: evaluation note* Diagnosis Depression, unspecified depression type- Primary Anxiety Anxiety state, unspecified Abnormal involuntary movement Abnormal involuntary movements [facility]* Diagnosis Post-acute sequelae of COVID-19 [...] of left axilla documented in this encounter Evaluation note* Diagnosis Bone pain- Primary Disorder of bone and cartilage, unspecified Malaise and fatigue Other malaise and fatigue Lymphadenopathy Enlargement of lymph nodes [facility]* Diagnosis 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 [facility]* Diagnosis History of COVID-19- Primary [...] multiple sites [facility]* Diagnosis History of COVID-19 Post-acute [...] multiple sites [facility]* Diagnosis History of COVID-19 Post-acute [...] joint, multiple sites documented in this encounter [facility]* Diagnosis 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 documented in this encounter [facility]* Diagnosis History of COVID-19 Post-acute [...] joint, multiple sites documented in this encounter [facility]* Diagnosis Malaise and fatigue- Primary Other malaise and fatigue Lymphadenopathy Enlargement of lymph nodes documented in this encounter [facility]* Diagnosis Depression, unspecified depression type- Primary Anxiety Anxiety state, unspecified Abnormal involuntary movement Abnormal involuntary movements documented in this encounter [facility]* Diagnosis Chronic migraine without aura, intractable, without status migrainosus- Primary documented in this encounter [facility]* Diagnosis Palpitations- Primary Symptomatic bradycardia Other specified cardiac dysrhythmias Orthostatic lightheadedness Dizziness and giddiness Diffuse pain Generalized pain Blood pressure instability Other abnormal clinical finding Decreased activity tolerance Orthostatic intolerance Moderate persistent asthma without complication Unspecified asthma Physical deconditioning Debility, unspecified documented in this encounter Evaluation note* Diagnosis Night sweats- Primary Generalized hyperhidrosis Lymphadenopathy Enlargement of lymph nodes Rash and nonspecific skin eruption Rash and other nonspecific skin eruption Allergic rhinitis, unspecified seasonality, unspecified trigger Moderate persistent asthma without complication Unspecified asthma documented in this encounter [facility]* Diagnosis 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) Unspecified hemorrhagic conditions documented in this encounter [facility] note* Diagnosis 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 documented in this encounter [facility]* Diagnosis Breast screening- Primary Breast screening, unspecified 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 documented in this encounter [facility] note* Diagnosis KATELIN on CPAP- Primary [...] hazards to health documented in this encounter [facility] note* Diagnosis Breast screening- Primary Breast screening, unspecified 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 documented in this encounter [facility]* Diagnosis Palpitations- Primary Orthostatic intolerance Symptomatic bradycardia Other specified cardiac dysrhythmias documented in this encounter [facility] note* Diagnosis Moderate persistent asthma without complication- Primary Unspecified asthma SOB (shortness of breath) Shortness of breath Post-acute sequelae of COVID-19 (PASC) documented in this encounter [facility]* Diagnosis Migraine without aura and without status migrainosus, not intractable- Primary Migraine without aura, without mention of intractable migraine without mention of status migrainosus documented in this encounter [facility]* Diagnosis 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) Unspecified hemorrhagic conditions documented in this encounter [facility]* Diagnosis No-show for appointment- Primary documented in this encounter [facility] note* Diagnosis 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) Unspecified hemorrhagic conditions Coagulopathy (HCC) Other and unspecified coagulation defects documented in this encounter [facility] note* Diagnosis 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) Unspecified hemorrhagic conditions documented in this encounter [facility] note* Diagnosis 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 documented in this encounter [facility] note* Diagnosis Migraine without aura and without status migrainosus, not intractable- Primary Migraine without aura, without mention of intractable migraine without mention of status migrainosus documented in this encounter Evaluation note* Diagnosis 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) Unspecified hemorrhagic conditions Coagulopathy (HCC) Other and unspecified coagulation defects documented in this encounter Evaluation note* Diagnosis Moderate persistent asthma without complication (CMS/HCC)- Primary documented in this encounter [facility]* Diagnosis 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 * Chest Pain (Italian) * Restless Legs Syndrome (Italian) documented in this encounter[facility]waves Phone: InstructionsNot on filedocumented in this encounter [facility]Local[facility] SystemInstructionsNot on filedocumented in this encounter [facility] [employer] [employer] [facility] note No data available for this section [facility] reason for referral (narrative)* Diagnostic Procedure Only (Routine) - Authorized Specialty Diagnoses / Procedures Referred By Leviac t Referred To Contact US IMAGING Diagnoses Chronic RLQ pain Procedures US SOFT TISSUE ABDOMEN US ABDOMINAL REAL TIME W/[place] [address] [place] [address] Us Imaging Referral ID Status Reason Start Date Expiration Date Visits Requested Visits Authorized [id number] Authorized Auto-Generat ed Referral 08/15/2021 09/14/2022 1 1 [facility] for referral (narrative)* Diagnostic Procedure Only (Routine) - Authorized Specialty Diagnoses / Procedures Referred By Leviac t Referred To Contact US IMAGING Diagnoses Chronic RLQ pain Procedures US PELVIS LTD US PELVIC NONOBSTETRIC IMAGE DCMTN LIMITED/F/[place] [address] [place] [address] Us Imaging Referral ID Status Reason Start Date Expiration Date Visits Requested Visits Authorized [id number] Authorized Auto-Generat ed Referral 08/16/2021 09/15/2022 1 1 [facility] for referral (narrative)* Outpatient Procedure (Routine) - Closed Specialty Diagnoses / Procedures Referred By Sabas t Referred To Contact [facility] Diagnoses Symptomatic bradycardia Blood pressure instability History of COVID-19 Procedures ECHO ECHO TTHRC R-T 2D W/WOM-MODE COMPL SPEC&COLR D Sai Perez MD [address] [place] [address] [facility] [place] [address] [place] [address] Referral ID Status Reason Start Date Expiration Date V isits Requested Visits Authorized [id number] Closed Auto-Generate d Referral 07/21/2021 07/21/2022 1 1 [facility] for referral (narrative)* Diagnostic Procedure Only (Routine) - Pending Review Specialty Diagnoses / Procedures Referred By Leviac t Referred To Contact US IMAGING Diagnoses Post-acute sequelae of COVID-19 (PASC) Mass of left axilla Procedures US CHEST WALL/SOFT TISSUE US CHEST REAL TIME W/IMAGE DOCUMENTATION Landen Clark APRN.RIFLE CASE REPAIRER [address] [place] [address] Us Imaging Referral ID Status Reason Start Date Expiration Date Visits Requested Visits Authorized [id number] Pending Review Auto-Generat ed Referral 09/19/2021 10/19/2022 [...] multiple sites Procedures LUNG VOLUMES Landen Clark APRN.CNP [address] [place] [address] [place] [address] Referral ID Status Reason Start Date Expiration Date Visits Requested Visits Authorized [id number] Pending Review Auto-Generat ed Referral 09/19/2021 10/19/2022 [...] BRNCDILAT RSPSE SPMTRY PRE&POST-BRNCDILAT ADMN Landen Clark APRN.RIFLE CASE REPAIRER [address] [place] [address] [facility] [place] [address] [place] [address] Referral ID Status Reason Start Date Expiration Date Visits Requested Visits Authorized [id number] Pending Review Auto-Generat ed Referral 09/19/2021 10/19/2022 [...] WALK CARDIOPULMONARY EXERCISE STRESS Landen Clark APRN.CNP [address] [place] [address] [place] [address] Referral ID Status Reason Start Date Expiration Date Visits Requested Visits Authorized [id number] Pending Review Auto-Generat ed Referral 09/19/2021 10/19/2022 [...] CAPACITY (DLCO) DIFFUSING CAPACITY Landen Clark APRN.CNP [address] [place] [address] [facility] [place] [id number] Referral ID Status Reason Start Date Expiration Date Visits Requested Visits Authorized [id number] Pending Review Auto-Generat ed Referral 09/19/2021 10/19/2022 1 1 [facility] for referral (narrative)* Outpatient Procedure (Routine) - Pending Review Specialty Diagnoses / Procedures Referred By Leviac t Referred To Contact [facility] Diagnoses KATELIN on CPAP Poor compliance with CPAP treatment Procedures PAP NAP PSG (CPAP, BILEVEL, ASV) SLEEP STD REC VNTJ RESPIR ECG/HRT RATE&O2 ATTN Meena Grissom MD [address] [place] [address] [place] [address] Referral ID Status Reason Start Date Expiration Date Visits Requested Visits Authorized [id number] Pending Review Auto-Generat ed Referral 12/16/2022 1 1 [facility] for referral (narrative)* Outpatient Procedure (Routine) - Pending Review Specialty Diagnoses / Procedures Referred By Sabas harris Referred To Contact [facility] Diagnoses Moderate persistent asthma without complication SOB (shortness of breath) Post-acute sequelae of COVID-19 (PASC) Procedures SPIROMETRY - BASELINE AND POST DILATOR BRNCDILAT RSPSE SPMTRY PRE&POST-BRNCDILAT ADMN Jaja Cabral PA-C [address] [place] [id number] [address] Referral ID Status Reason Start Date Expiration Date Visits Requested Visits Authorized [id number] Pending Review Auto-Generat ed Referral 12/06/2021 01/05/2023 1 1 * Outpatient Procedure (Routine) - Pending Review Specialty Diagnoses / Procedures Referred By Sabas harris Referred To Contact [facility] Diagnoses Moderate persistent asthma without complication SOB (shortness of breath) Post-acute sequelae of COVID-19 (PASC) Procedures NITRIC OXIDE, EXHALED NITRIC OXIDE GAS DETERMINATION Jaja Cabral PA-C [address] [place] [address] [facility] [place] [address] [place] [address] Referral ID Status Reason Start Date Expiration Date Visits Requested Visits Authorized [id number] Pending Review Auto-Generat ed Referral 12/06/2021 01/05/2023 1 1 [facility] for visit Narrative* Outpatient Procedure (Routine) - Closed Specialty Diagnoses / Procedures Referred By Contsuraj t Referred To Contact [facility] Diagnoses Symptomatic bradycardia Blood pressure instability History of COVID-19 Procedures ECHO ECHO TTHRC R-T 2D W/WOM-MODE COMPL SPEC&COLR D Sai Perez MD [address] [place] [address] [place] [address] Referral ID Status Reason Start Date Expiration Date V isits Requested Visits Authorized [id number] Closed Auto-Generate d Referral 07/21/2021 07/21/2022 1 1 [facility] for visit Narrative* Outpatient Procedure (Routine) [...] CARDIOPULMONARY EXERCISE STRESS Landen Clark APRN.MACY [address] [place] [address] [facility] [place] [address] [place] [address] Referral ID Status Reason Start Date Expiration Date V isits Requested Visits Authorized [id number] Closed Auto-Generate d Referral 09/19/2021 10/19/2022 1 1 Advance Directives No Advanced Directives Records FoundDocuments on File Type Date Recorded Patient Specimen Technician Expl anation ACP-Advance Directive ACP-Power of Locker Room Clerk Latest Code Status on File Code Status Date Activated Date Inactivated Comments Full Code 12/30/2011 10:09 AM 12/31/2011 4:00 PM Documents on File Type Date Recorded Patient Specimen Technician Expl anation Advance Directive(s) 05/18/2015 10:11 AM Advance Directive(s) 05/14/2015 12:11 PM Documents on File Type Date Recorded Patient Specimen Technician Expl anation Advance Directive(s) 06/27/2021 1:27 PM Advance Directive(s) 05/18/2015 10:11 AM Advance Directive(s) 05/14/2015 12:11 PM Documents on File Type Date Recorded Patient Specimen Technician Expl anation Advance Directive(s) 06/27/2021 1:27 PM Advance Directive(s) 05/18/2015 10:11 AM Advance Directive(s) 05/14/2015 12:11 PM Documents on File Type Date Recorded Patient Specimen Technician Expl anation ACP-Advance Directive 01/12/2022 2:29 PM ACP-Power of Locker Room Clerk 01/12/2022 2:29 PM Latest Code Status on [...] Referral Specialty Diagnoses / Procedures Referred By Sabas harris Referred To Contact Neurology Diagnoses Muscle spasms of lower extremity, unspecified laterality Akathisia Procedures CONSULT TO NEUROLOGY OFFICE/OUTPATIENT [facility] 60-74 MINUTES Peter Knight, INDUSTRIAL AUTOMATION ENGINEER.RIFLE CASE REPAIRER [address] [place] [id number] Referral ID Status Reason Start Date Expiration Date Visits Requested Visits Authorized [id number] Authorized PCP Requested Referral 06/27/2021 06/27/2022 1 1 Specialty Diagnoses / Procedures Referred By Sabas harris Referred To Contact Ent - Otolaryngology Diagnoses Maxillary sinus cyst Procedures CONSULT TO ENT OFFICE/OUTPATIENT [facility] MDM 60-74 MINUTES Peter Knight, LIO.RIFLE CASE REPAIRER [address] [place] [address] Referral ID Status Reason Start Date Expiration Date Visits Requested Visits Authorized [id number] Authorized PCP Requested Referral 06/27/2021 06/27/2022 1 1 Specialty Diagnoses / Procedures Referred By Contac t Referred To Contact Diagnoses Coagulopathy (HCC) 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HCC) Procedures CONSULT TO MEDICAL GENETICS - GENERAL OFFICE/OUTPATIENT [facility] 60-74 MINUTES MEDICAL GENETICS COUNSELING EACH 30 MINUTES Yan Bass MD [address] [place] [address] [place] [address] [facility] [place] [address] [place] [id number] Referral ID Status Reason Start Date Expiration Date Visits Requested Visits Authorized [id number] Authorized PCP Requested Referral Auto-Generate d Referral 07/01/2021 07/01/2022 1 1 Specialty Diagnoses / Procedures Referred By Contac t Referred To Contact Psychology Diagnoses Intractable chronic migraine without aura and without status migrainosus Abnormal involuntary movement Procedures CONSULT TO PSYCHOLOGY OFFICE/OUTPATIENT [facility] 60-[place] [address] [place], [place] [id number] Referral ID Status Reason Start Date Expiration Date Visits Requested Visits Authorized [id number] Pending Review PCP Requested Referral 07/06/2021 07/06/2022 1 1 Specialty Diagnoses / Procedures Referred By Contac t Referred To Contact [facility] Diagnoses Intractable chronic migraine without aura and without status migrainosus Abnormal involuntary movement Procedures CONSULT TO PHYSICAL THERAPY PHYSICAL THERAPY EVALUATION HIGH COMPLEX 45 MINS Tracee Mcintyre MD [address] [place], [place] [address]S[place] [address] [facility] [address] [address] Referral ID Status Reason Start Date Expiration Date Visits Requested Visits Authorized [id number] Pending Review Auto-Generat ed Referral 07/06/2021 07/06/2022 1 1 Specialty Diagnoses / Procedures Referred By Contac t Referred To Contact Allergy Diagnoses Allergy, initial encounter Procedures CONSULT TO ALLERGY/IMMUNOLOGY OFFICE/OUTPATIENT [facility] 60-74 MINUTES Aldo Ann MD [facility] [place] [address] Referral ID Status Reason Start Date Expiration Date Visits Requested Visits Authorized [id number] Authorized PCP Requested Referral 07/14/2021 07/14/2022 1 1 Specialty Diagnoses / Procedures Referred By Contac t Referred To Contact PULM COVID RECOV [facility] Diagnoses History of COVID-19 Procedures [facility] Sai Perez MD [address] [place] [address] Pulm Covid Recov [facility] [address] [place] [address] Referral ID Status Reason Start Date Expiration Date Visits Requested Visits Authorized [id number] Authorized PCP Requested Referral 07/21/2021 07/21/2022 1 1 Specialty Diagnoses / Procedures Referred By Contac t Referred To Contact [facility] Diagnoses Symptomatic bradycardia Blood pressure instability History of COVID-19 Procedures ECHO ECHO TTHRC R-T 2D W/WOM-MODE COMPL SPEC&COLR D Sai Perez MD [address] [place] [address] [facility] [address] [address] Referral ID Status Reason Start Date Expiration Date Visits Requested Visits Authorized [id number] Authorized Auto-Generat ed Referral 07/21/2021 07/21/2022 1 1 Specialty Diagnoses / Procedures Referred By Contac t Referred To Contact Ent - Otolaryngology Diagnoses Hoarseness of voice Procedures CONSULT TO ENT OFFICE/OUTPATIENT [facility] 60-74 MINUTES Cindy Rushing MD [address] [address] Rc Cardenas, PhD, [facility]ACHIN[facility] ERECTOR [address] [place] [address] Referral ID Status Reason Start Date Expiration Date Visits Requested Visits Authorized [id number] Authorized PCP Requested Referral 07/25/2021 07/25/2022 1 1 Specialty Diagnoses / Procedures Referred By Contac t Referred To Contact Diagnoses Diffuse pain Decreased activity tolerance Physical deconditioning Procedures WELLNESS CONSULT OFFICE/OUTPATIENT [facility] 60-74 MINUTES Peter Knight APRN.CNP [address] [place] [place] [phone] Referral ID Status Reason Start Date Expiration Date Visits Requested Visits Authorized [id number] Authorized PCP Requested Referral 08/23/2021 08/23/2022 1 1 Specialty Diagnoses / Procedures Referred By Contac t Referred To Contact Diagnoses Long COVID PTSD (post-traumatic stress disorder) Procedures MIND/BODY HOLISTIC PSYCHOTHERAPY OFFICE/OUTPATIENT [facility] 60-74 MINUTES Ayaka Bright MD [facility] [address] [place] [address] Referral ID Status Reason Start Date Expiration Date Visits Requested Visits Authorized [id number] Authorized PCP Requested Referral 08/30/2021 08/30/2022 1 1 Specialty Diagnoses / Procedures Referred By Contac t Referred To Contact Diagnoses Long COVID Diffuse pain Decreased activity tolerance Procedures CONSULT TO [facility] OFFICE/OUTPATIENT [facility] 60-74 MINUTES Ayaka Bright MD [facility] [address] [place] [address] Referral ID Status Reason Start Date Expiration Date Visits Requested Visits Authorized [id number] Authorized PCP Requested Referral 08/30/2021 08/30/2022 1 1 Specialty Diagnoses / Procedures Referred By Contac t Referred To Contact Diagnoses Chronic migraine without aura, intractable, without status migrainosus Procedures PROVIDER ORDERED FOLLOW UP OFFICE/OUTPATIENT [facility] 60-74 MINUTES Bhargavi Saldana PA-C [address] [place] [address] Referral ID Status Reason Start Date Expiration Date Visits Requested Visits Authorized [id number] Authorized PCP Requested Referral 10/19/2022 1 1 Specialty Diagnoses / Procedures Referred By Contac t Referred To Contact Hematology Diagnoses Lymphadenopathy Night sweats Procedures CONSULT TO HEMATOLOGY OFFICE/OUTPATIENT [facility] 60-74 MINUTES Cindy Rushing MD [facility] [address] [address] Referral ID Status Reason Start Date Expiration Date Visits Requested Visits Authorized [id number] Authorized PCP Requested Referral 10/24/2021 10/24/2022 1 1 Specialty Diagnoses / Procedures Referred By Contac t Referred To Contact Diagnoses Migraine without aura and without status migrainosus, not intractable Procedures PROVIDER ORDERED FOLLOW UP OFFICE/OUTPATIENT [facility] 60-74 MINUTES Bhargavi Saldana PA-C [address] [place] [address] Referral ID Status Reason Start Date Expiration Date Visits Requested Visits Authorized [id number] Authorized PCP Requested Referral 04/16/2022 01/16/2023 1 1 Specialty Diagnoses / Procedures Referred By Contac t Referred To Contact Cardiology Diagnoses 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) Coagulopathy (HCC) Procedures CONSULT TO CARDIOLOGY OFFICE/OUTPATIENT [facility] 60-74 MINUTES Fuentes Amaral MD [address] [place] [address] [place] [address] Referral ID Status Reason Start Date Expiration Date Visits Requested Visits Authorized [id number] Authorized PCP Requested Referral 02/16/2022 02/16/2023 1 1 Referral ID Status Reason Start Date Expiration Date Visits Requested Visits Authorized [id number] Authorized PCP Requested Referral 10/27/2022 04/26/2023 1 [...] Comments Allergic Reaction Unknown trigger, 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 Pt used epi-pen prior to arrival and reports feeling short of breath Reason Comments surgery clearence Reason Comments Adrenal Specialty Diagnoses / Procedures Referred By Contac t Referred To Contact Endocrinology Diagnoses Symptomatic bradycardia Blood pressure instability Procedures CONSULT TO ENDOCRINOLOGY OFFICE/OUTPATIENT [facility] 60-74 MINUTES Peter Knight APRN.RIFLE CASE REPAIRER [address] [place] [address] Referral ID Status Reason Start Date Expiration Date V isits Requested Visits Authorized [id number] Closed PCP Requested Referral 05/24/2021 05/24/2022 1 [...] CONSULT TO MEDICAL GENETICS - GENERAL OFFICE/OUTPATIENT [facility] 60-74 MINUTES MEDICAL GENETICS COUNSELING EACH 30 MINUTES Yan Bass MD [address] [place] [address] [place] [address] [facility] Medicine [place] [address] [place] [address] Referral ID Status Reason Start Date Expiration Date V isits Requested Visits Authorized [id number] Closed PCP Requested Referral Auto-Generated Referral 07/01/2021 07/01/2022 1 1 Reason Comments Coagulopathy Specialty Diagnoses / Procedures Referred By Contac t Referred To Contact Cardiology Diagnoses Symptomatic bradycardia Blood pressure instability Procedures CONSULT TO CARDIOLOGY OFFICE/OUTPATIENT [facility] 60-74 MINUTES Peter Knight APRN.CNP [address] [place] [address] Referral ID Status Reason Start Date Expiration Date V isits Requested Visits Authorized [id number] Closed PCP Requested Referral 05/24/2021 05/24/2022 1 1 Reason Comments Allergies Asthma Reason Comments Follow Up Chronic Migraine Reason Comments Consult Specialty Diagnoses / Procedures Referred By Contac t Referred To Contact Psychology Diagnoses Intractable chronic migraine without aura and without status migrainosus Abnormal involuntary movement Procedures CONSULT TO PSYCHOLOGY OFFICE/OUTPATIENT [facility] 60-74 MINUTES Tracee Mcintyre MD [address] [place] [address] Referral ID Status Reason Start Date Expiration Date Visits Requested Visits Authorized [id number] Pending Review PCP Requested Referral 07/06/2021 07/06/2022 [...] COMPLEX 45 MINS Tracee Mcintyre MD [address] [place] [address] [facility] [place] [address] [place] [address] Referral ID Status Reason Start Date Expiration Date V isits Requested Visits Authorized [id number] Authorized 02/05/2021 02/04/2022 99 99 Reason Comments [...] MDM 60-74 MINUTES Peter Knight APRN.MACY [address] [place] [address] Referral ID Status Reason Start Date Expiration Date V isits Requested Visits Authorized [id number] Closed PCP Requested Referral 08/23/2021 08/23/2022 1 1 Reason Comments Allergic Reaction Onset prior to arriv al. Pt reports her face is burning and feels short of breath. 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 Reason Comments New Specialty Diagnoses / Procedures Referred By Contac t Referred To Contact PULM CARLOS MANUELID RECOV [facility] Diagnoses History of COVID-19 Procedures CONSULT TO COVID RECOVER CLINIC Sai Perez MD [address] [place] [address] Pulm Carlos Manuelid Recov [facility] [address] [place] [address] Referral ID Status Reason Start Date Expiration Date V isits Requested Visits Authorized [id number] Closed PCP Requested Referral 07/21/2021 07/21/2022 1 [...] DIFFUSION CAPACITY (DLCO) DIFFUSING CAPACITY Landen Clark APRN.RIFLE CASE REPAIRER [address] [place] [address] [facility] [place] [address] [place] [address] Referral ID Status Reason Start Date Expiration Date V isits Requested Visits Authorized [id number] Closed Auto-Generate d Referral 09/19/2021 10/19/2022 1 1 Specialty Diagnoses / Procedures [facility] Diagnoses History of COVID-19 Post-acute sequelae of COVID-19 (PASC) SOB (shortness of breath) Chronic cough Chest discomfort Palpitation CAVANAUGH (dyspnea on exertion) Dizziness Near syncope Night sweats Orthopnea Anxiety Myalgia Pain in joint, multiple sites Procedures SPIROMETRY - BASELINE AND POST DILATOR BRNCDILAT RSPSE SPMTRY PRE&POST-BRNCDILAT ADMN Landen Clark APRN.RIFLE CASE REPAIRER [address] [place] [address] [place] [address] Referral ID Status Reason Start Date Expiration Date V isits Requested Visits Authorized [id number] Closed Auto-Generate d Referral 09/19/2021 10/19/2022 1 1 Specialty Diagnoses / Procedures [facility] Referred To Contact [facility] Diagnoses History of COVID-19 Post-acute sequelae of COVID-19 (PASC) SOB (shortness of breath) Chronic cough Chest discomfort Palpitation CAVANAUGH (dyspnea on exertion) Dizziness Near syncope Night sweats Orthopnea Anxiety Myalgia Pain in joint, multiple sites Procedures LUNG VOLUMES PLETHYSMOGRAPHY LUNG VOLUMES W/WO AIRWAY RESIST Landen Clark APRN.RIFLE CASE REPAIRER [address] [place] [phone] [facility] [place] [address] [place] [phone] Referral ID Status Reason Start Date Expiration Date V isits Requested Visits Authorized [id number] Closed Auto-Generate d Referral 09/21/2021 02/04/2022 1 1 Reason Comments Radio Gen A21 Reason Comments discuss test results Reason Comments Follow Up Chronic Migraine Reason Comments Palpitations Reason Comments Allergic Rhinitis Asthma Reason Comments coagulpathy Reason Comments Established Patient Reason Comments Appointment Download Pap Therapy Follow UP Reason Comments 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 - 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 Download Reason Comments Sleep Apnea Reason Comments Breast screening Reason Comments Patient Update Reason Comments Follow Up Migraine Specialty Diagnoses / Procedures Referred By Contac t Referred To Contact Diagnoses Chronic migraine without aura, intractable, without status migrainosus Procedures PROVIDER ORDERED FOLLOW UP OFFICE/OUTPATIENT [facility] MDM 60-74 MINUTES Bhargavi Saldana PA-C [address] [place] [address] Referral ID Status Reason Start Date Expiration Date V isits Requested Visits Authorized [id number] Closed PCP Requested Referral 01/18/2022 10/19/2022 1 [...] HIGH MDM 60-74 MINUTES Bhargavi Saldana PA-C [address] [place] [phone] Referral ID Status Reason Start Date Expiration Date V isits Requested Visits Authorized [id number] Closed PCP Requested Referral 04/16/2022 01/16/2023 1 [...] (New Bag - Prov ider: Nicole Smith RN)2346 (Stopped - Provider: Nicole Smith RN) diphenhydrAMINE [...] hour of each other unless specifically ordered. 181 (Given - Provid er: Sanaz You RN) [...] content) DATE CREATED AUTHOR 03/08/2021 [facility] DATE CREATED AUTHOR AUTHOR'S ORGANIZ ATION 04/26/2021 [facility] DATE CREATED AUTHOR AUTHOR'S ORGANIZ ATION 07/27/2021 [facility] DATE CREATED AUTHOR AUTHOR'S ORGANIZ ATION 12/22/2021 [facility] DATE CREATED AUTHOR AUTHOR'S ORGANIZ ATION 04/07/2022 [facility] DATE CREATED AUTHOR AUTHOR'S ORGANIZ ATION 06/17/2022 [facility] DATE CREATED AUTHOR AUTHOR'S ORGANIZ ATION 10/03/2022 [facility] DATE CREATED AUTHOR AUTHOR'S ORGANIZ ATION 12/19/2022 [facility] DATE CREATED AUTHOR AUTHOR'S ORGANIZ ATION 04/05/2023 [facility] DATE CREATED AUTHOR AUTHOR'S ORGANIZ ATION 05/09/2023 [facility] DATE CREATED AUTHOR AUTHOR'S ORGANIZ ATION 08/26/2023 [facility] EPIC DATE CREATED AUTHOR AUTHOR'S ORGANIZ ATION 09/11/2023 [facility] DATE CREATED AUTHOR AUTHOR'S ORGANIZ ATION 09/12/2023 [facility] Care Teams (unrecognized sec tion and content) Varnish Inspector Relationship Specialty Start Date End Date Cas Dowell MD PCP - General 09/04/11 Varnish Inspector Relationship Specialty Start Date End Date Cas Dowell MD PCP - General 09/04/11 Varnish Inspector Relationship Specialty Start Date End Date Cas Dowell PCP - General Family Practice 02/20/14 Varnish Inspector Relationship Specialty Start Date End Date Cas Dowell MD PCP - General 09/04/11 Varnish Inspector Relationship Specialty Start Date End Date CoreyCas howe PCP - General Family Practice 02/20/14 Varnish Inspector Relationship Specialty Start Date End Date Cas Dowell PCP - General Family Practice 02/20/14 Varnish Inspector Relationship Specialty Start Date End Date Cas Dowell PCP - General Family Practice 02/20/14 Varnish Inspector Relationship Specialty Start Date End Date NadelCas almonte PCP - General Family Practice 02/20/14 Varnish Inspector Relationship Specialty Start Date End Date Cas Dowell PCP - General Family Practice 02/20/14 Varnish Inspector Relationship Specialty Start Date End Date Cas Dowell PCP - General Family Practice 02/20/14 Varnish Inspector Relationship Specialty Start Date End Date Cas Dowell PCP - General Family Practice 02/20/14 Varnish Inspector Relationship Specialty Start Date End Date Cas Dowell MD PCP - General 09/04/11 Varnish Inspector Relationship Specialty Start Date End Date Cas Dowell PCP - General Family Practice 02/20/14 Varnish Inspector Relationship Specialty Start Date End Date Cas Dowell PCP - General Family Practice 02/20/14 Varnish Inspector Relationship Specialty Start Date End Date Cas Dowell PCP - General Family Practice 02/20/14 Varnish Inspector Relationship Specialty Start Date End Date Gabrielasilvia Cas Guzman PCP - General Family Practice 02/20/14 Varnish Inspector Relationship Specialty Start Date End Date GabrielaCas almonte PCP - General Family Practice 02/20/14 Varnish Inspector Relationship Specialty Start Date End Date GabrielaCas almonte PCP - General Family Practice 02/20/14 Varnish Inspector Relationship Specialty Start Date End Date GraysonCas PCP - General Family Practice 02/20/14 Varnish Inspector Relationship Specialty Start Date End Date GabrielaCas almonte PCP - General Family Practice 02/20/14 Sai Perez MD [address] [place] [address] Primary Staff Physician Cardiology 07/21/21 Varnish Inspector Relationship Specialty Start Date End Date CoreyCas howe PCP - General Family Practice 02/20/14 Sai Perez MD [address] [place] [address] Primary Staff Physician Cardiology 07/21/21 Varnish Inspector Relationship Specialty Start Date End Date GabrielaCas almonte PCP - General Family Practice 02/20/14 Sai Perez MD [address] [place] [address] Primary Staff Physician Cardiology 07/21/21 Varnish Inspector Relationship Specialty Start Date End Date Cas Dowell PCP - General Family Practice 02/20/14 Varnish Inspector Relationship Specialty Start Date End Date Cas Dowell PCP - [facility] Practice 02/20/14 Sai Perez MD [address] [place], [place] [address] Primary Staff Physician Cardiology 07/21/21 Varnish Inspector Relationship Specialty Start Date End Date Cas Dowell PCP - [facility] Practice 02/20/14 Sai Perez MD [address] [place] [address] Primary Staff Physician Cardiology 07/21/21 Varnish Inspector Relationship Specialty Start Date End Date Cas Dowell PCP - [facility] Practice 02/20/14 Sai Perez MD [address] [place] [address] Primary Staff Physician Cardiology 07/21/21 Rubens Tim [facility] [address] [place], [place] [address] Referring BAKERY PASTRY INTERNSHIP 08/05/21 Varnish Inspector Relationship Specialty Start Date End Date Cas Dowell PCP - General [facility] Practice 02/20/14 Sai Perez MD [address] [place] [address] Primary Staff Physician Cardiology 07/21/21 [facility]ens [facility] [place] [place] [id number] Referring BAKERY PASTRY INTERNSHIP 08/05/21 Varnish Inspector Relationship Specialty Start Date End Date Cas Dowell PCP - General Family Practice 02/20/14 Sai Perez MD [address] [place], [place] [id number] Primary Staff Physician Cardiology 07/21/21 Rubens Tim [address] [place], [place] [address] [place], [place] [id number] Referring BAKERY PASTRY INTERNSHIP 08/05/21 Varnish Inspector Relationship Specialty Start Date End Date Cas Dowell PCP - General Family Practice 02/20/14 Sai Perez MD [address] [place] [address] Primary Staff Physician Cardiology 07/21/21 Rubens Tim [address] [place], [place] [address] [place], [facility]11 Referring BAKERY PASTRY INTERNSHIP 08/05/21 Varnish Inspector Relationship Specialty Start Date End Date Cas Dowell PCP - General Family Practice 02/20/14 Sai Perez MD [address] [place] [address] Primary Staff Physician Cardiology 07/21/21 Rubens Tim [address] [place], [place] [address] [place], [facility]11 Referring BAKERY PASTRY INTERNSHIP 08/05/21 Varnish Inspector Relationship Specialty Start Date End Date Cas Dowell PCP - General Family Practice 02/20/14 Sai Perez MD [address] [place] [address] Primary Staff Physician Cardiology 07/21/21 Rubens Tim [address] [place] [address] Referring BAKERY PASTRY INTERNSHIP 08/05/21 Varnish Inspector Relationship Specialty Start Date End Date Cas Dowell PCP - General Family Practice 02/20/14 Sai Perez MD [address] [place] [address] Primary Staff Physician Cardiology 07/21/21 Rubens Tim, DO [address] [place] [address] Referring BAKERY PASTRY INTERNSHIP 08/05/21 Varnish Inspector Relationship Specialty Start Date End Date Cas Dowell PCP - General Family Practice 02/20/14 Sai Perez MD [address] [place] [address] Primary Staff Physician Cardiology 07/21/21 Rubens Tim, DO [address] [place] [address] Referring BAKERY PASTRY INTERNSHIP 08/05/21 Varnish Inspector Relationship Specialty Start Date End Date Cas Dowell PCP - General [facility] Practice 02/20/14 Sai Perez MD [address] [place] [address] Primary Staff Physician Cardiology 07/21/21 Rubens Tim, DO [address] [place] [address] Referring BAKERY PASTRY INTERNSHIP 08/05/21 Varnish Inspector Relationship Specialty Start Date End Date Cas Dowell PCP - General Family Practice 02/20/14 Sai Perez MD [address] [place] [address] Primary Staff Physician Cardiology 07/21/21 Rubens Tim, [address] [place] [address] Referring BAKERY PASTRY INTERNSHIP 08/05/21 Varnish Inspector Relationship Specialty Start Date End Date Cas Dowell PCP - General [facility] Practice 02/20/14 Sai Perez MD [address] [place] [address] Primary Staff Physician Cardiology 07/21/21 Rubens Tim, DO [address] [place], [place] [address] Referring BAKERY PASTRY INTERNSHIP 08/05/21 Varnish Inspector Relationship Specialty Start Date End Date Cas Dowell MD PCP - General 09/04/11 Varnish Inspector Relationship Specialty Start Date End Date Cas Dowell PCP - General Family Practice 02/20/14 Sai Perez MD [address] [place] [address] Primary Staff Physician Cardiology 07/21/21 Rubens Tim, DO [address] [place] [address] Referring [employer] 08/05/21 Varnish Inspector Relationship Specialty Start Date End Date Cas Dowell PCP - General Family Practice 02/20/14 Sai Perez MD [address] [place] [address] Primary Staff Physician Cardiology 07/21/21 Rubens Tim, DO [address] [place] [address] Referring [employer] 08/05/21 Varnish Inspector Relationship Specialty Start Date End Date Cas Dowell PCP - General Family Practice 02/20/14 Sai Perez MD [address] [place] [address] Primary Staff Physician Cardiology 07/21/21 Rubens Tim, DO [address] [place], [place] [address] Referring B[employer] 08/05/21 Varnish Inspector Relationship Specialty Start Date End Date Cas Dowell PCP - General Family Practice 02/20/14 Sai Perez MD [address] [place] [address] Primary Staff Physician Cardiology 07/21/21 Rubens Tim, DO [address] [place], [facility]11 Referring [employer] 08/05/21 Varnish Inspector Relationship Specialty Start Date End Date Cas Dowell PCP - General Family Practice 02/20/14 Sai Perez MD [address] [place] [address] Primary Staff Physician Cardiology 07/21/21 Rubens Tim, DO [address] [place] [address] Referring [employer] 08/05/21 Varnish Inspector Relationship Specialty Start Date End Date Cas Dowell PCP - General Family Practice 02/20/14 Sai Perez MD [address] [place] [address] Primary Staff Physician Cardiology 07/21/21 Rubens Tim, DO [address] [place] [address] Referring [employer] 08/05/21 Varnish Inspector Relationship Specialty Start Date End Date Cas Dowell PCP - General [facility] Practice 02/20/14 Sai Perez MD [address] [place] [address] Primary Staff Physician Cardiology 07/21/21 Rubens Tim, DO [address] [place] [address] Referring [employer] 08/05/21 Varnish Inspector Relationship Specialty Start Date End Date Cas Dowell PCP - [facility] Practice 02/20/14 Sai Perez MD [address] [place] [address] Primary Staff Physician Cardiology 07/21/21 Rubens Tim, DO [address] [place] [address] Referring [employer] 08/05/21 Varnish Inspector Relationship Specialty Start Date End Date Cas Dowell PCP - General Family Practice 02/20/14 Sai Perez MD [address] [place] [address] Primary Staff Physician Cardiology 07/21/21 Rubens Tim, DO [address] [place] [address] Referring [employer] 08/05/21 Varnish Inspector Relationship Specialty Start Date End Date Cas Dowell PCP - General Family Practice 02/20/14 Sai Perez MD [address] [place] [address] Primary Staff Physician Cardiology 07/21/21 Rubens Tim, DO [address] [place], [facility]11 Referring [employer] 08/05/21 Varnish Inspector Relationship Specialty Start Date End Date Cas Dowell PCP - General Family Practice 02/20/14 Sai Perez MD [address] [place] [address] Primary Staff Physician Cardiology 07/21/21 Rubens Tim, DO [address] [place] [address] Referring B[employer] 08/05/21 Varnish Inspector Relationship Specialty Start Date End Date Cas Dowell PCP - General Family Practice 02/20/14 Sai Perez MD [address] [place] [address] Primary Staff Physician Cardiology 07/21/21 Rubens Tim, DO [address] [place], [place] [id number] Referring [employer] 08/05/21 Varnish Inspector Relationship Specialty Start Date End Date Cas Dowell PCP - General Family Medicine 02/20/14 Sai Perez MD [address] [place] [address] Primary Staff Physician Cardiology 07/21/21 Rubens Tim, DO [address] [place] [address] Referring B[employer] 08/05/21 Varnish Inspector Relationship Specialty Start Date End Date Cas Dowell PCP - General Family Medicine 02/20/14 Sai Perez MD [address] [place] [address] Primary Staff Physician Cardiology 07/21/21 Rubens Tim, DO [address] [place] [address] Referring B[employer] 08/05/21 Varnish Inspector Relationship Specialty Start Date End Date Cas Dowell PCP - General Family Medicine 02/20/14 Sai Perez MD [address] [place] [address] Primary Staff Physician Cardiology 07/21/21 Rubens Tim, DO [address] [place] [address] Referring B[employer]NS[employer] 08/05/21 Varnish Inspector Relationship Specialty Start Date End Date Naderer, Cas A PCP - General Family Medicine 02/20/14 Sai Perez MD [address] [place] [address] Primary Staff Physician Cardiology 07/21/21 Rubens Tim, [address] [place], [place] [id number] Referring B[employer] 08/05/21 Varnish Inspector Relationship Specialty Start Date End Date Cas Dowell PCP - General Family Medicine 02/20/14 Sai Perez MD [address] [place] [address] Primary Staff Physician Cardiology 07/21/21 Rubens Tim, DO [address] [place] [address] Referring B[employer]NS[employer] 08/05/21 Varnish Inspector Relationship Specialty Start Date End Date Cas Dowell PCP - General Family Medicine 02/20/14 Sai Perez MD [address] [place] [address] Primary Staff Physician Cardiology 07/21/21 Rubens Tim, DO [address] [place], [place] [id number] Referring BAK[employer]NSHIP 08/05/21 Varnish Inspector Relationship Specialty Start Date End Date Cas Dowell PCP - General Family Medicine 02/20/14 Sai Perez MD [address] [place], [place] [address] Primary Staff Physician Cardiology 07/21/21 Rubens Tim, DO [address] [place], [place] [id number] Referring BAK[employer]NSHIP 08/05/21 Varnish Inspector Relationship Specialty Start Date End Date Cas Dowell PCP - General Family Medicine 02/20/14 Sai Perez MD [address] [place] [address] Primary Staff Physician Cardiology 07/21/21 Rubens Tim, DO [address] [place], [facility]11 Referring BAK[employer]NS[employer] 08/05/21 Varnish Inspector Relationship Specialty Start Date End Date Cas Dowell PCP - General Family Medicine 02/20/14 Sai Perez MD [address] [place] [address] Primary Staff Physician Cardiology 07/21/21 Rubens Tim, DO [address] [place], [facility]11 Referring BAK[employer]NSH[employer] 08/05/21 Varnish Inspector Relationship Specialty Start Date End Date Cas Dowell PCP - General Family Medicine 02/20/14 Sai Perez MD [address] [place] [address] Primary Staff Physician Cardiology 07/21/21 Rubens Tim, DO [address] [place] [address] Referring BAK[employer]NS[employer] 08/05/21 Varnish Inspector Relationship Specialty Start Date End Date Cas Dowell PCP - General Family Medicine 02/20/14 Sai Perez MD [address] [place] [address] Primary Staff Physician Cardiology 07/21/21 Rubens Tim, DO [address] [place] [address] Referring BAK[employer] 08/05/21 Varnish Inspector Relationship Specialty Start Date End Date Cas Dowell PCP - General [facility] 02/20/14 Sai Perez MD [address] [place] [address] Primary Staff Physician Cardiology 07/21/21 Rubens Tim, DO [address] [place] [address] Referring BAK[employer]NS[employer] 08/05/21 Varnish Inspector Relationship Specialty Start Date End Date Cas Dowell PCP - General Family Medicine 02/20/14 Sai Perez MD [address] [place] [address] Primary Staff Physician Cardiology 07/21/21 Rubens Tim, DO [address] [place], [place] [id number] Referring BAK[employer]NSHIP 08/05/21 Varnish Inspector Relationship Specialty Start Date End Date Cas Dowell MD PCP - General 09/04/11 Varnish Inspector Relationship Specialty Start Date End Date Cas Dowell PCP - General Family Medicine 02/20/14 Sai Perez MD [address] [place] [address] Primary Staff Physician Cardiology 07/21/21 Rubens Tim, DO [address] [place], [facility]11 Referring BAK[employer]NS[employer] 08/05/21 Varnish Inspector Relationship Specialty Start Date End Date Cas Dowell PCP - General Family Medicine 02/20/14 Sai Perez MD [address] [place] [address] Primary Staff Physician Cardiology 07/21/21 Rubens Tim, DO [address] [place], [facility]11 Referring BAK[employer]NSHIP 08/05/21 Varnish Inspector Relationship Specialty Start Date End Date Cas Dowell PCP - General Family Medicine 02/20/14 Sai Perez MD [address] [place] [address] Primary Staff Physician Cardiology 07/21/21 Rubens Tim, DO [address] [place], [facility]11 Referring BAK[employer]NSH[employer] 08/05/21 Varnish Inspector Relationship Specialty Start Date End Date Cas Dowell PCP - General Family Medicine 02/20/14 Sai Perez MD [address] [place] [address] Primary Staff Physician Cardiology 07/21/21 Rubens Tim, DO [address] [place], [facility]11 Referring BAK[employer] INTERNSHIP 08/05/21 Varnish Inspector Relationship Specialty Start Date End Date Cas Dowell PCP - General Family Medicine 02/20/14 Sai Perez MD [address] [place] [address] Primary Staff Physician Cardiology 07/21/21 Rubens Tim, DO [address] [place], [place] [address] Referring BAK[employer] INTERNSHIP 08/05/21 Varnish Inspector Relationship Specialty Start Date End Date Cas Dowell PCP - General Family Medicine 02/20/14 Sai Perez MD [address] [place] [address] Primary Staff Physician Cardiology 07/21/21 Rubens Tim, DO [address] [place], [facility]11 Referring BAK[employer] INTERNSHIP 08/05/21 Varnish Inspector Relationship Specialty Start Date End Date Cas Dowell PCP - General Family Medicine 02/20/14 Sai Perez MD [address] [place] [address] Primary Staff Physician Cardiology 07/21/21 Rubens Tim, DO [address] [place], [facility]11 Referring BAK[employer] PA[employer] INTERNSHIP 08/05/21 Varnish Inspector Relationship Specialty Start Date End Date Cas Dowell PCP - General Family Medicine 02/20/14 Sai Perez MD [address] [place] [address] Primary Staff Physician Cardiology 07/21/21 Rubens Tim, DO [address] [place], [facility]11 Referring BAK[employer] INTERNSHIP 08/05/21 Varnish Inspector Relationship Specialty Start Date End Date Cas Dowell PCP - General Family Medicine 02/20/14 Sai Perez MD [address] [place] [address] Primary Staff Physician Cardiology 07/21/21 Rubens Tim, DO [address] [facility] [address] [place], [place] [address] Referring BAKERY PA[employer] INTERNSHIP 08/05/21 Varnish Inspector Relationship Specialty Start Date End Date Cas Dowell PCP - General Family Medicine 02/20/14 Sai Perez MD [address] [place] [address] Primary Staff Physician Cardiology 07/21/21 Rubens Tim, [address] [place] [address] [place] [address] Referring BAK[employer] PA[employer] INTERNSHIP 08/05/21 Varnish Inspector Relationship Specialty Start Date End Date Cas Dowell MD [address] [place], [place] [address], [place] [address] PCP - General Family Medicine 11/18/20 Varnish Inspector Relationship Specialty Start Date End Date Cas Dowell MD PCP - General Family Medicine 12/06/22 Varnish Inspector Relationship Specialty Start Date End Date Cas Dowell MD [address] [place] [address] PCP - General Family Medicine 11/18/20 Source Comments (unrecognize d section and content) In the event this informatio n is protected by the Federal Confidentiality of Alcohol and Drug Abuse Patient Records regulations: The Federal rules restrict any use of the information to criminally investigate or prosecute any alcohol or drug abuse patient.In the event this information is protected by the Federal Confidentiality of Alcohol and Drug Abuse Patient Records regulations: The Federal rules restrict any use of the information to criminally investigate or prosecute any alcohol or drug abuse patient.In the event this information is protected by the Federal Confidentiality of Alcohol and Drug Abuse Patient Records regulations: The Federal rules restrict any use of the information to criminally investigate or prosecute any alcohol or drug abuse patient.In the event this information is protected by the Federal Confidentiality of Alcohol and Drug Abuse Patient Records regulations: The Federal rules restrict any use of the information to criminally investigate or prosecute any alcohol or drug abuse patient.In the event this information is protected by the Federal Confidentiality of Alcohol and Drug Abuse Patient Records regulations: The Federal rules restrict any use of the information to criminally investigate or prosecute any alcohol or drug abuse patient.In the event this information is protected by the Federal Confidentiality of Alcohol and Drug Abuse Patient Records regulations: The Federal rules restrict any use of the information to criminally investigate or prosecute any alcohol or drug abuse patient.In the event this information is protected by the Federal Confidentiality of Alcohol and Drug Abuse Patient Records regulations: The Federal rules restrict any use of the information to criminally investigate or prosecute any alcohol or drug abuse patient.In the event this information is protected by the Federal Confidentiality of Alcohol and Drug Abuse Patient Records regulations: The Federal rules restrict any use of the information to criminally investigate or prosecute any alcohol or drug abuse patient.In the event this information is protected by the Federal Confidentiality of Alcohol and Drug Abuse Patient Records regulations: The Federal rules restrict any use of the information to criminally investigate or prosecute any alcohol or drug abuse patient.In the event this information is protected by the Federal Confidentiality of Alcohol and Drug Abuse Patient Records regulations: The Federal rules restrict any use of the information to criminally investigate or prosecute any alcohol or drug abuse patient.In the event this information is protected by the Federal Confidentiality of Alcohol and Drug Abuse Patient Records regulations: The Federal rules restrict any use of the information to criminally investigate or prosecute any alcohol or drug abuse patient.In the event this information is protected by the Federal Confidentiality of Alcohol and Drug Abuse Patient Records regulations: The Federal rules restrict any use of the information to criminally investigate or prosecute any alcohol or drug abuse patient.In the event this information is protected by the Federal Confidentiality of Alcohol and Drug Abuse Patient Records regulations: The Federal rules restrict any use of the information to criminally investigate or prosecute any alcohol or drug abuse patient.In the event this information is protected by the Federal Confidentiality of Alcohol and Drug Abuse Patient Records regulations: The Federal rules restrict any use of the information to criminally investigate or prosecute any alcohol or drug abuse patient.In the event this information is protected by the Federal Confidentiality of Alcohol and Drug Abuse Patient Records regulations: The Federal rules restrict any use of the information to criminally investigate or prosecute any alcohol or drug abuse patient.In the event this information is protected by the Federal Confidentiality of Alcohol and Drug Abuse Patient Records regulations: The Federal rules restrict any use of the information to criminally investigate or prosecute any alcohol or drug abuse patient.In the event this information is protected by the Federal Confidentiality of Alcohol and Drug Abuse Patient Records regulations: The Federal rules restrict any use of the information to criminally investigate or prosecute any alcohol or drug abuse patient.In the event this information is protected by the Federal Confidentiality of Alcohol and Drug Abuse Patient Records regulations: The Federal rules restrict any use of the information to criminally investigate or prosecute any alcohol or drug abuse patient.In the event this information is protected by the Federal Confidentiality of Alcohol and Drug Abuse Patient Records regulations: The Federal rules restrict any use of the information to criminally investigate or prosecute any alcohol or drug abuse patient.In the event this information is protected by the Federal Confidentiality of Alcohol and Drug Abuse Patient Records regulations: The Federal rules restrict any use of the information to criminally investigate or prosecute any alcohol or drug abuse patient.In the event this information is protected by the Federal Confidentiality of Alcohol and Drug Abuse Patient Records regulations: The Federal rules restrict any use of the information to criminally investigate or prosecute any alcohol or drug abuse patient.In the event this information is protected by the Federal Confidentiality of Alcohol and Drug Abuse Patient Records regulations: The Federal rules restrict any use of the information to criminally investigate or prosecute any alcohol or drug abuse patient.In the event this information is protected by the Federal Confidentiality of Alcohol and Drug Abuse Patient Records regulations: The Federal rules restrict any use of the information to criminally investigate or prosecute any alcohol or drug abuse patient.In the event this information is protected by the Federal Confidentiality of Alcohol and Drug Abuse Patient Records regulations: The Federal rules restrict any use of the information to criminally investigate or prosecute any alcohol or drug abuse patient.In the event this information is protected by the Federal Confidentiality of Alcohol and Drug Abuse Patient Records regulations: The Federal rules restrict any use of the information to criminally investigate or prosecute any alcohol or drug abuse patient.In the event this information is protected by the Federal Confidentiality of Alcohol and Drug Abuse Patient Records regulations: The Federal rules restrict any use of the information to criminally investigate or prosecute any alcohol or drug abuse patient.In the event this information is protected by the Federal Confidentiality of Alcohol and Drug Abuse Patient Records regulations: The Federal rules restrict any use of the information to criminally investigate or prosecute any alcohol or drug abuse patient.In the event this information is protected by the Federal Confidentiality of Alcohol and Drug Abuse Patient Records regulations: The Federal rules restrict any use of the information to criminally investigate or prosecute any alcohol or drug abuse patient.In the event this information is protected by the Federal Confidentiality of Alcohol and Drug Abuse Patient Records regulations: The Federal rules restrict any use of the information to criminally investigate or prosecute any alcohol or drug abuse patient.In the event this information is protected by the Federal Confidentiality of Alcohol and Drug Abuse Patient Records regulations: The Federal rules restrict any use of the information to criminally investigate or prosecute any alcohol or drug abuse patient.In the event this information is protected by the Federal Confidentiality of Alcohol and Drug Abuse Patient Records regulations: The Federal rules restrict any use of the information to criminally investigate or prosecute any alcohol or drug abuse patient.In the event this information is protected by the Federal Confidentiality of Alcohol and Drug Abuse Patient Records regulations: The Federal rules restrict any use of the information to criminally investigate or prosecute any alcohol or drug abuse patient.In the event this information is protected by the Federal Confidentiality of Alcohol and Drug Abuse Patient Records regulations: The Federal rules restrict any use of the information to criminally investigate or prosecute any alcohol or drug abuse patient.In the event this information is protected by the Federal Confidentiality of Alcohol and Drug Abuse Patient Records regulations: The Federal rules restrict any use of the information to criminally investigate or prosecute any alcohol or drug abuse patient.In the event this information is protected by the Federal Confidentiality of Alcohol and Drug Abuse Patient Records regulations: The Federal rules restrict any use of the information to criminally investigate or prosecute any alcohol or drug abuse patient.In the event this information is protected by the Federal Confidentiality of Alcohol and Drug Abuse Patient Records regulations: The Federal rules restrict any use of the information to criminally investigate or prosecute any alcohol or drug abuse patient.In the event this information is protected by the Federal Confidentiality of Alcohol and Drug Abuse Patient Records regulations: The Federal rules restrict any use of the information to criminally investigate or prosecute any alcohol or drug abuse patient.In the event this information is protected by the Federal Confidentiality of Alcohol and Drug Abuse Patient Records regulations: The Federal rules restrict any use of the information to criminally investigate or prosecute any alcohol or drug abuse patient.In the event this information is protected by the Federal Confidentiality of Alcohol and Drug Abuse Patient Records regulations: The Federal rules restrict any use of the information to criminally investigate or prosecute any alcohol or drug abuse patient.In the event this information is protected by the Federal Confidentiality of Alcohol and Drug Abuse Patient Records regulations: The Federal rules restrict any use of the information to criminally investigate or prosecute any alcohol or drug abuse patient.In the event this information is protected by [...] or prosecute any alcohol or drug abuse patient.In the event this information is protected by the Federal Confidentiality of Alcohol and Drug Abuse Patient Records regulations: The Federal rules restrict any use of the information to criminally investigate or prosecute any alcohol or drug abuse patient.In the event this information is protected by the Federal Confidentiality of Alcohol and Drug Abuse Patient Records regulations: The Federal rules restrict any use of the information to criminally investigate or prosecute any alcohol or drug abuse patient.In the event this information is protected by the Federal Confidentiality of Alcohol and Drug Abuse Patient Records regulations: The Federal rules restrict any use of the information to criminally investigate or prosecute any alcohol or drug abuse patient.In the event this information is protected by the Federal Confidentiality of Alcohol and Drug Abuse Patient Records regulations: The Federal rules restrict any use of the information to criminally investigate or prosecute any alcohol or drug abuse patient.In the event this information is protected by the Federal Confidentiality of Alcohol and Drug Abuse Patient Records regulations: The Federal rules restrict any use of the information to criminally investigate or prosecute any alcohol or drug abuse patient.In the event this information is protected by the Federal Confidentiality of Alcohol and Drug Abuse Patient Records regulations: The Federal rules restrict any use of the information to criminally investigate or prosecute any alcohol or drug abuse patient.In the event this information is protected by the Federal Confidentiality of Alcohol and Drug Abuse Patient Records regulations: The Federal rules restrict any use of the information to criminally investigate or prosecute any alcohol or drug abuse patient.In the event this information is protected by the Federal Confidentiality of Alcohol and Drug Abuse Patient Records regulations: The Federal rules restrict any use of the information to criminally investigate or prosecute any alcohol or drug abuse patient.In the event this information is protected by the Federal Confidentiality of Alcohol and Drug Abuse Patient Records regulations: The Federal rules restrict any use of the information to criminally investigate or prosecute any alcohol or drug abuse patient.In the event this information is protected by the Federal Confidentiality of Alcohol and Drug Abuse Patient Records regulations: The Federal rules restrict any use of the information to criminally investigate or prosecute any alcohol or drug abuse patient.In the event this information is protected by the Federal Confidentiality of Alcohol and Drug Abuse Patient Records regulations: The Federal rules restrict any use of the information to criminally investigate or prosecute any alcohol or drug abuse patient.In the event this information is protected by the Federal Confidentiality of Alcohol and Drug Abuse Patient Records regulations: The Federal rules restrict any use of the information to criminally investigate or prosecute any alcohol or drug abuse patient.In the event this information is protected by the Federal Confidentiality of Alcohol and Drug Abuse Patient Records regulations: The Federal rules restrict any use of the information to criminally investigate or prosecute any alcohol or drug abuse patient.In the event this information is protected by the Federal Confidentiality of Alcohol and Drug Abuse Patient Records regulations: The Federal rules restrict any use of the information to criminally investigate or prosecute any alcohol or drug abuse patient.In the event this information is protected by the Federal Confidentiality of Alcohol and Drug Abuse Patient Records regulations: The Federal rules restrict any use of the information to criminally investigate or prosecute any alcohol or drug abuse patient.In the event this information is protected by the Federal Confidentiality of Alcohol and Drug Abuse Patient Records regulations: The Federal rules restrict any use of the information to criminally investigate or prosecute any alcohol or drug abuse patient.In the event this information is protected by the Federal Confidentiality of Alcohol and Drug Abuse Patient Records regulations: The Federal rules restrict any use of the information to criminally investigate or prosecute any alcohol or drug abuse patient.In the event this information is protected by the Federal Confidentiality of Alcohol and Drug Abuse Patient Records regulations: The Federal rules restrict any use of the information to criminally investigate or prosecute any alcohol or drug abuse patient.In the event this information is protected by the Federal Confidentiality of Alcohol and Drug Abuse Patient Records regulations: The Federal rules restrict any use of the information to criminally investigate or prosecute any alcohol or drug abuse patient.In the event this information is protected by the Federal Confidentiality of Alcohol and Drug Abuse Patient Records regulations: The Federal rules restrict any use of the information to criminally investigate or prosecute any alcohol or drug abuse patient.In the event this information is protected by the Federal Confidentiality of Alcohol and Drug Abuse Patient Records regulations: The Federal rules restrict any use of the information to criminally investigate or prosecute any alcohol or drug abuse patient.In the event this information is protected by the Federal Confidentiality of Alcohol and Drug Abuse Patient Records regulations: The Federal rules restrict any use of the information to criminally investigate or prosecute any alcohol or drug abuse patient.In the event this information is protected by the Federal Confidentiality of Alcohol and Drug Abuse Patient Records regulations: The Federal rules restrict any use of the information to criminally investigate or prosecute any alcohol or drug abuse patient.In the event this information is protected by the Federal Confidentiality of Alcohol and Drug Abuse Patient Records regulations: The Federal rules restrict any use of the information to criminally investigate or prosecute any alcohol or drug abuse patient.In the event this information is protected by the Federal Confidentiality of Alcohol and Drug Abuse Patient Records regulations: The Federal rules restrict any use of the information to criminally investigate or prosecute any alcohol or drug abuse patient.In the event this information is protected by the Federal Confidentiality of Alcohol and Drug Abuse Patient Records regulations: The Federal rules restrict any use of the information to criminally investigate or prosecute any alcohol or drug abuse patient.In the event this information is protected by the Federal Confidentiality of Alcohol and Drug Abuse Patient Records regulations: The Federal rules restrict any use of the information to criminally investigate or prosecute any alcohol or drug abuse patient.In the event this information is protected by the Federal Confidentiality of Alcohol and Drug Abuse Patient Records regulations: The Federal rules restrict any use of the information to criminally investigate or prosecute any alcohol or drug abuse patient.In the event this information is protected by the Federal Confidentiality of Alcohol and Drug Abuse Patient Records regulations: The Federal rules restrict any use of the information to criminally investigate or prosecute any alcohol or drug abuse patient.In the event this information is protected by the Federal Confidentiality of Alcohol and Drug Abuse Patient Records regulations: The Federal rules restrict any use of the information to criminally investigate or prosecute any alcohol or drug abuse patient.In the event this information is protected by the Federal Confidentiality of Alcohol and Drug Abuse Patient Records regulations: The Federal rules restrict any use of the information to criminally investigate or prosecute any alcohol or drug abuse patient.In the event this information is protected by the Federal Confidentiality of Alcohol and Drug Abuse Patient Records regulations: The Federal rules restrict any use of the information to criminally investigate or prosecute any alcohol or drug abuse patient.In the event this information is protected by the Federal Confidentiality of Alcohol and Drug Abuse Patient Records regulations: The Federal rules restrict any use of the information to criminally investigate or prosecute any alcohol or drug abuse patient.In the event this information is protected by the Federal Confidentiality of Alcohol and Drug Abuse Patient Records regulations: The Federal rules restrict any use of the information to criminally investigate or prosecute any alcohol or drug abuse patient.In the event this information is protected by the Federal Confidentiality of Alcohol and Drug Abuse Patient Records regulations: The Federal rules restrict any use of the information to criminally investigate or prosecute any alcohol or drug abuse patient.In the event this information is protected by the Federal Confidentiality of Alcohol and Drug Abuse Patient Records regulations: The Federal rules restrict any use of the information to criminally investigate or prosecute any alcohol or drug abuse patient.In the event this information is protected by the Federal Confidentiality of Alcohol and Drug Abuse Patient Records regulations: The Federal rules restrict any use of the information to criminally investigate or prosecute any alcohol or drug abuse patient.In the event this information is protected by the Federal Confidentiality of Alcohol and Drug Abuse Patient Records regulations: The Federal rules restrict any use of the information to criminally investigate or prosecute any alcohol or drug abuse patient.In the event this information is protected by the Federal Confidentiality of Alcohol and Drug Abuse Patient Records regulations: The Federal rules restrict any use of the information to criminally investigate or prosecute any alcohol or drug abuse patient.In the event this information is protected by the Federal Confidentiality of Alcohol and Drug Abuse Patient Records regulations: The Federal rules restrict any use of the information to criminally investigate or prosecute any alcohol or drug abuse patient.In the event this information is protected by the Federal Confidentiality of Alcohol and Drug Abuse Patient Records regulations: The Federal rules restrict any use of the information to criminally investigate or prosecute any alcohol or drug abuse patient.In the event this information is protected by the Federal Confidentiality of Alcohol and Drug Abuse Patient Records regulations: The Federal rules restrict any use of the information to criminally investigate or prosecute any alcohol or drug abuse patient. FOR RECORDS PERTAINING TO PATIENTS WHO ARE [...] BE BASED ON THE PRIMARY CLINICAL RECORDS. [facility]. provides no warranty or guarantee of the accuracy or completeness of information in this document.
[2023-09-22] MEDS: FAMOTIDINE/PF 20 MG/2 ML VIAL IV (12:39)
[2023-09-22] MEDS: EPINEPHrine 1 MG/10 ML SYRINGE 0.3 MG IM (12:39)
[2023-09-22] MEDS: METHYLPREDNISOLONE SOD SUCC PF 125 MG/2 ML VIAL IVP (12:39)
[2023-09-22] MEDS: ALBUTEROL SULFATE 2.5 MG/3 ML VIAL NEB IH (13:10)
== END 2023-09-22 14:31 | disposition home or self-care (01) ==
PROVIDERS: Emergency Provider Emergency Medicine; PCP Family Medicine
DX: T78.40XA Allergy, unspecified, initial encounter (principal); J45.909 Unspecified asthma, uncomplicated
CPT/HCPCS: 94640; 96372; 96374; 96375; 99284; J0171; J2919

== ENCOUNTER 2023-10-09 14:08 | Outpatient (OUT) | payer BC, SELFPAY ==
--- NOTE | 2023-10-09 14:22 | CT_ITS ---
[place] [id number] Patient Name: LEANA TRAN MRN: [id number] date: 1985 Sex: F Assigned Patient Location: CT Current Patient Location: CT Accession/Order Number: [id number] Exam Date: 10/09/2023 14:16 Report Date: 10/09/2023 15:39 At the request of: BAUTISTA OVERTON Procedure: CT abdomen pelvis wo con EXAMINATION: CT abdomen pelvis wo con, 10/09/2023 2:16 PM EDT HISTORY: Kidney Stone, Gross Hematuria, Ureteral Stricture COMPARISON: None. TECHNIQUE: CT scan of the abdomen and pelvis was performed without IV contrast. CT dose reduction technique was used, including Automated Exposure Control. FINDINGS: LOWER CHEST: The visualized lungs are clear. LIVER: There is hepatomegaly and diffuse hepatic steatosis. GALLBLADDER AND BILIARY SYSTEM: Status post cholecystectomy. No intra or extrahepatic biliary ductal dilatation. SPLEEN: Unremarkable. PANCREAS: Unremarkable. ADRENAL GLANDS: Unremarkable. KIDNEYS AND URETERS: No nephrolithiasis or hydronephrosis. No ureteral calculus. BLADDER: Under distended. GASTROINTESTINAL TRACT: No evidence of bowel obstruction or colitis. Moderate amount of stool in the colon. Status post appendectomy. VASCULATURE: The abdominal aorta is normal in caliber. RETROPERITONEUM: No lymphadenopathy. PERITONEUM/MESENTERY: No abdominal ascites. No free air. PELVIS: There is a 4.2 x 3.4 cm right ovarian cyst. No pelvic ascites or lymphadenopathy. BODY WALL: Small fat-containing umbilical hernia. BONES: No acute abnormality. CT/CT abdomen pelvis wo con IMPRESSION: 1. Right ovarian cyst measuring 4.2 cm. 2. Hepatomegaly and diffuse hepatic steatosis. 3. Small fat-containing umbilical hernia. Electronically authenticated by: LUIS THOMASON Date: 10/09/2023 15:39
== END 2023-10-09 14:09 | disposition home or self-care (01) ==
LOC: CT 14:08
PROVIDERS: PCP Family Medicine; Visit Provider Nurse Practitioner Family
DX: D17.9 Benign lipomatous neoplasm, unspecified (principal); N20.0 Calculus of kidney; R31.0 Gross hematuria; N35.92 Unspecified urethral stricture, female; N83.201 Unspecified ovarian cyst, right side; R16.0 Hepatomegaly, not elsewhere classified
CPT/HCPCS: 74176

== ENCOUNTER 2023-11-15 08:51 | Outpatient (RCR) | payer BC, SELFPAY | END 2023-11-16 07:42 | disposition home or self-care (01) | LOC: ST 08:51 | PROVIDERS: PCP Family Medicine | DX: J38.3 Other diseases of vocal cords (principal) | CPT/HCPCS: 92507; 92524 ==

== ENCOUNTER 2023-11-20 20:10 | Outpatient (REF) | payer BC, SELFPAY ==
--- OUTSIDE RECORDS SUMMARY | 2023-11-20 20:17 | XMS_ITS | CCD ---
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 Name Role Phone Cas Dowell MD Primary [...] Unavailabl e Cas Dowell Primary Care Provider [phone] Ana PEREZ, Sai Unavailable Rubens Tim DO Unavailable Cas Dowell MD Primary Care Provider Glenroy DO, Rubens R Unavailable MUNIR, FUENTES Referring Unavailable NADERER, CAS [...] Unavailable NADERER, DR CAS Guzman Admitting Unavailable WEST, DR BELÉN Hatfield Consulting Unavailable NADERER, DR CAS Guzman Primary Care Unavailable TEJ, LORAINE Attending Unavailable TEJ, LORAINE Admitting Unavailable TEJ, LORAINE Consulting Unavailable GLENROY ., DR REYNOLDS Consulting Unavailable NADERER, DR CAS Guzman Primary Care Unavailable GLENROY ., DR REYNOLDS Attending Unavailable GLENROY ., DR REYNOLDS Admitting Unavailable FAWWASiri, H Primary Care Unavailable FAWWAD, BLACKBURN H Attending Unavailable FAWWAD, BLACKBURN H Admitting Unavailable REINECK, DR CORIE Espinosa Consulting Unavailabl e REINECK, DR CORIE Espinosa Attending Unavailabl e REINECK, DR CORIE Espinosa Admitting Unavailabl e NADERER, DR CAS Guzman Primary Care Unavailable PAY ., DR BURDEN Consulting Unavailable DARYN, AYAKA Consulting Unavailable WEST, DR BELÉN Hatfield Consulting Unavailable MATILDE ., MARICEL Attending Unavailable MATILDE ., MARICEL Admitting Unavailable NADERER, DR CAS Guzman Primary Care Unavailable MORTEZA ., YANIRA Consulting Unavailable DAMION, JIMMY Starkey Consulting Unavailable Ana PEREZ, Sai Unavailable CHAYO MARTINS Admitting Unavailable CHAYO MARTINS Attending Unavailable NADERER, CAS FINGAL Primary Care Unavailabl e FRANTZ, LIV Consulting Unavailable NADERER, CAS FINGAL Primary Care Unavailabl e SEAN MOSES Attending Unavailable NADERER, CAS GUTIERREZONY Primary Care Unavailabl e NADERER, CAS FINGAL Primary Care Unavailabl e NADERER, CAS FINGAL Primary Care Unavailabl e YAO, KAREN Referring Unavailable NADERER, [facility] Primary Care Unavailabl e YAO, KAREN Referring Unavailable Naderer , Cas Primary Care Provider Grayson PEREZ, Cas Primary Care Provider [phone] SARAH BEST Attending Unavailable CAS DOWELL Referring Unavailable GRAYSON, CAS Primary Care Unavailable Cas Dowell Primary Care Provider [phone] ABHYJON STEWARTEK Referring Unavailable ABHYANKFUENTES GONZALEZ Attending Unavailable GRAYSON, CAS Guzman Primary Care Unavailable ABJON CHAVARRIAEK Referring Unavailable NADERESuzy, CAS Guzman Primary Care Unavailable Selma Choe Attending Unavailable NILLTesfaye Attending Unavailable NILJoshua, Tesfaye Almonte Attending Unavailable NADERERCAS Referring Unavailable NILTesfaye Lewis Attending Unavailable William PEREZ, Phillip Guerra Attending Unavailable Grayson PEREZ, Cas Gutierrezony Primary Care Unavail able William PEREZ, Phillip Guerra Attending Unavailable Grayson PEREZ, Cas Gutierrezony Primary Care Unavail able William PEREZ, Phillip Guerra Attending Unavailable Grayson PEREZ, Cas Gutierrezony Primary Care Unavail able William PEREZ, Phillip Guerra Attending Unavailable NadCas howe MD Primary Care Unavail able Glenroy DO, Rubens R Unavailable CAS DOWELL Attending Unavailable DELILAH, JODI Lewis Attending Unavailable GLENROY, RUBENS Attending Unavailable GLENROY, RUBENS Attending Unavailable NADERER, CAS Attending Unavailable NADERER, CAS Attending Unavailable NADERER, CAS Attending Unavailable RAMBASEK, CHRISTY Razo Attending Unavailable NADERESuzy, CAS Referring Unavailable ABEL, STEPHON Referring Unavailable ABEL, STEPHON Referring Unavailable ABEL, STEPHON Referring Unavailable KARABIN, MACRINA Attending Unavailable ABEL, STEPHON Referring Unavailable VIPUL, ABIEL Referring Unavailable KARABIN, MACRINA Attending Unavailable VIPUL, ABIEL Referring Unavailable VIPUL, ABIEL Referring Unavailable BARAZI, ANGELIKA Attending Unavailable ABEL, STEPHON Referring Unavailable KARABIN, MACRINA Attending Unavailable ABEL, STEPHON Referring Unavailable ABEL, STEPHON Referring Unavailable ABEL, STEPHON Referring Unavailable Nadelr Cas PEREZ Primary Care Provider Allergies Allergy Classification Reported Allergen(s) Allergy Type Date of Onset Reaction(s) Facility Aluminum aspirin (1 source) Aluminum aspirin Drug Allergy 09-04-19 12 Rash [facility] Cephalosporins (antibiotic) (2 sources) Cefaclor Drug Allergy 09-04-19 12 Shortness Of Breath, Rash [facility] Phone: drospirenone / Ethinyl Estradiol (1 source) drospirenone / Ethinyl Estradiol Drug Allergy 09-04-19 12 [facility] Phone: Ethinyl Estradiol / Norethindrone (1 source) Ethinyl Estradiol / Norethindrone Drug Allergy 09-04-19 12 [facility] Phone: Latex (1 source) Latex Substance Allergy 09-04-19 12 Swelling, Rash [facility] Phone: Macrolides (antibiotic) (1 source) Erythromycin Drug Allergy 09-04-19 12 Shortness Of Breath [facility] Phone: NSAIDs (1 source) Ibuprofen Drug Allergy 09-04-19 12 [facility] Phone: Penicillins (antibiotic) (1 source) Penicillins Drug Allergy 09-04-19 12 Rash [facility] Phone: rofecoxib (1 source) rofecoxib Drug Allergy 09-04-19 12 [facility] Phone: Sulfonamides (antibiotic) (1 source) Sulfonamides (Antibiotic) Drug Allergy 03-21-19 16 [facility] Unclassified (8 sources) Clindamycin/Lincomy juan Propensity to adverse reactions to drug 09-04-19 12 Rash [facility] Phone: Unclassified (20 sources) Iodides; Translations: [IODIDES] Propensity to adverse reactions to drug 09-04-19 12 Unknown, Anaphylaxis [facility] Phone: Unclassified (13 sources) Lavender Oil Propensity to adverse reactions to drug 06-14-19 21 Anaphylaxis [facility] (17 sources) Aluminum aspirin; Translations: [ASPIRIN] Drug Allergy 09-04-19 12 Rash, Angioedema, Unknown [facility] (20 sources) Cefaclor; Translations: [cefaclor] Drug Allergy 09-04-19 12 Shortness Of Breath, Anaphylaxis, Swelling, Unknown (qualifier value), Dyspnea (finding) [facility] Phone: (20 sources) Cefuroxime; Translations: [CEFUROXIME AXETIL] Drug Allergy 09-04-19 12 Rash, Unknown, Shortness of Breath [facility] Phone: (20 sources) drospirenone / Ethinyl Estradiol; Translations: [DROSPIRENONE-ETHIN YL ESTRADIOL] Drug Allergy 09-04-19 12 Unknown, Other: See Comments [facility] Phone: (20 sources) Erythromycin; Translations: [ERYTHROMYCIN] Drug Allergy 09-04-19 12 Shortness Of Breath, Swelling, Unknown [facility] Phone: (9 sources) Ethinyl Estradiol / Norethindrone Drug Allergy 09-04-19 12 [facility] Phone: (19 sources) Ibuprofen; Translations: [ibuprofen] Drug Allergy 09-04-19 12 Unknown (qualifier value), Rash, Unknown, Dyspnea (finding) [facility] (20 sources) Latex; Translations: [LATEX] Propensity to adverse reactions to drug 09-04-19 12 Swelling, Rash, Itching, Unknown, Eruption of skin (disorder) [employer] Work Phone: (10 sources) Penicillins; Translations: [PENICILLINS] Propensity to adverse reactions to drug 09-04-19 12 Rash [facility] [employer] Work Phone: (20 sources) rofecoxib Drug Allergy 09-04-19 12 Unknown, Rash [facility] [employer] Work Phone: (6 sources) Sulfonamides (Antibiotic) Propensity to adverse reactions to drug 03-21-19 16 [facility] (20 sources) Aspirin; Translations: [aspirin] Drug Allergy 09-04-19 12 Unknown, Angioedema, Unknown (qualifier value), Rash, Weal (disorder) [facility] (20 sources) Clindamycin; Translations: [clindamycin] Drug Allergy 02-23-19 15 Swelling, Shortness of Breath, Rash, Unknown (qualifier value), Eruption of skin (disorder) [facility] (20 sources) Contrast media; Translations: [CONTRAST DYE] Drug Allergy 09-04-19 [address] [facility] (20 sources) Naproxen; Translations: [NAPROXEN] Drug Allergy 09-07-19 21 Swelling, Angioedema [facility] (19 sources) Penicillins Propensity to adverse reactions to drug 02-23-19 15 Rash, Itching [facility] (20 sources) Sulfonamides (Antibiotic); Translations: [SULFA (SULFONAMIDE ANTIBIOTICS)] Drug Allergy 03-21-19 16 Swelling, Shortness of Breath [facility] (20 sources) Lavender (Lavandula Angustifolia); Translations: [LAVENDER (LAVANDULA ANGUSTIFOLIA)] Drug Allergy 06-14-[address] [facility] (4 sources) Eucalyptus oil Drug Allergy 10-24-19 21 [facility] (20 sources) gatifloxacin; Translations: [GATIFLOXACIN] Drug Allergy 12-22-19 15 Diarrhea [facility] [employer] Work Phone: (18 sources) Norethindrone-Ethin Estradiol; Translations: [NORETHINDRONE-ETHI N ESTRADIOL] Propensity to adverse reactions to drug 06-09-[address] [facility] (20 sources) Eucalyptus extract; Translations: [EUCALYPTUS] Drug Allergy 10-24-19 [address] [facility] (20 sources) levoFLOXacin; Translations: [LEVOFLOXACIN] Drug Allergy 11-12-19 [address] [facility] (20 sources) metroNIDAZOLE; Translations: [METRONIDAZOLE] Drug Allergy 03-02-[address] [facility] (20 sources) Sulfamethoxazole / Trimethoprim; Translations: [SULFAMETHOXAZOLE-T RIMETHOPRIM] Drug Allergy 01-24-20 14 Unknown, Other (See Comments) [facility] (20 sources) Fish; Translations: [FISH CONTAINING PRODUCTS] Drug Allergy 07-26-19 22 [facility] Work Phone: (20 sources) Shellfish; Translations: [SHELLFISH DERIVED] Drug Allergy 07-26-19 22 [facility] Work Phone: (20 sources) Penicillins Propensity to adverse reactions to drug 09-04-19 12 Rash, Itching [facility] (20 sources) Penicillin G; Translations: [PENICILLIN G BENZATHINE] Drug Allergy 08-19-[address] [facility] Work Phone: (7 sources) Iodine; Translations: [iodine] Drug Allergy 05-25-19 23 Unknown (qualifier value) [facility] (7 sources) Macrolides (Antibiotic); Translations: [macrolide antibiotics] Drug allergy 09-04-19 12 Allergy - specialty (qualifier value) [facility] (7 sources) Penicillin; Translations: [penicillin] Drug Allergy Unknown (qualifier value), Dyspnea (finding) [facility] (7 sources) Sulfonamides (Antibiotic); Translations: [sulfa drugs] Drug allergy Allergy - specialty (qualifier value) [facility] (16 sources) valACYclovir; Translations: [valacyclovir] Drug Allergy 10-06-19 22 Anaphylaxis (disorder), Shortness Of Breath, Anaphylaxis [facility] (14 sources) Povidone-Iodine; Translations: [povidone iodine topical] Drug Allergy 05-25-19 23 Eruption of skin (disorder), Rash [facility] (6 sources) Seafood Propensity to adverse reactions to drug 01-09-20 22 Hives, Rash [facility] [employer] Work Phone: (9 sources) rofecoxib; Translations: [ROFECOXIB] Drug Allergy 09-04-19 12 Rash, Unknown [facility] (4 sources) IODINATED CONTRAST MEDIA; Translations: [IODINATED CONTRAST MEDIA] Propensity to adverse reactions to drug (disorder) 02-23-19 15 [facility] (1 source) Aspirin Drug Allergy 03-12-19 15 [facility] (3 sources) Cefaclor; Translations: [Ceclor] Drug Allergy 03-12-19 15 [facility] (2 sources) Cefuroxime; Translations: [Ceftin] Drug Allergy 03-12-19 15 [facility] (1 source) Clindamycin Drug Allergy 03-12-19 15 [facility] (1 source) Erythromycin Drug Allergy 03-12-19 15 [facility] (1 source) Eucalyptus extract Drug Allergy 10-24-19 21 [facility] (1 source) gatifloxacin Drug Allergy 12-22-19 15 [facility] (2 sources) Ibuprofen; Translations: [Motrin] Drug Allergy [facility] (1 source) Iodine (And Iodine Containting Drugs) Drug allergy (disorder) 03-12-19 15 [facility] (1 source) Latex Drug allergy (disorder) 03-12-19 15 [facility] (1 source) levoFLOXacin Drug Allergy 11-12-19 21 [facility] (1 source) Naproxen Drug Allergy 08-07-19 21 [facility] (1 source) Penicillins Drug allergy (disorder) 03-12-19 15 [facility] (1 source) rofecoxib Drug Allergy 03-12-19 15 [facility] (1 source) Sulfamethoxazole / Trimethoprim Drug Allergy 02-23-19 21 [facility] (1 source) Sulfonamides (Antibiotic) Drug allergy (disorder) 03-12-19 15 [facility] (1 source) valACYclovir Drug Allergy [facility] (9 sources) buPROPion; Translations: [BUPROPION] Drug Allergy 06-22-19 23 Other (See Comments) [facility] (9 sources) Latex; Translations: [LATEX, NATURAL RUBBER] Propensity to adverse reactions to drug 09-04-19 12 Swelling, Itching, Rash, Unknown [facility] (9 sources) Menthol; Translations: [MENTHOL] Drug Allergy 02-27-19 23 [facility] (3 sources) Sulfamethoxazole; Translations: [SULFAMETHOXAZOLE] Drug Allergy 08-19-19 22 [facility] (9 sources) zolpidem; Translations: [ZOLPIDEM] Drug Allergy 05-25-19 23 Other (See Comments), Unknown [facility] (4 sources) Gloves, Latex With Aloe Vera; Translations: [GLOVES, LATEX WITH ALOE VERA] Propensity to adverse reactions to drug 08-19-19 22 [facility] (5 sources) Cefuroxime Drug Allergy 07-08-19 23 [facility] (6 sources) dimethicone; Translations: [DIMETHICONE] Drug Allergy 07-08-19 23 [facility] (5 sources) Fish - dietary Allergy to substance 07-26-19 22 Hives [facility] (5 sources) Gatifloxacin Allergy to substance 12-22-19 15 Diarrhea [facility] (5 sources) Penicillins Drug Intolerance 09-04-19 12 Itching, Rash [facility] (5 sources) Galcanezumab-Gnlm Propensity to adverse reactions 07-08-19 23 [facility] (5 sources) Norethindrone-Eth Estradiol Drug Intolerance 09-04-19 12 [facility] (2 sources) Ibuprofen; Translations: [IBUPROFEN] Drug Allergy 09-04-19 12 [facility] (2 sources) NORETHINDRONE AC-ETH ESTRADIOL; Translations: [NORETHINDRONE AC-ETH ESTRADIOL] Propensity to adverse reactions to drug (disorder) 09-04-19 12 [facility] (1 source) CT dye and contrast; Translations: [CT dye and contrast] Propensity to adverse reactions (disorder) [facility] (4 sources) Benzathine penicillin - chemical Allergy to substance 08-22-19 24 [facility] (4 sources) Sulfamethoxazole Allergy to substance 08-22-19 24 [facility] Medications Current Medications Medication Drug Class(es) Dates Sig (Normalized) Sig (Original) 6-aminocaproic acid 500 mg oral tablet (6 sources) Antifibrinolytic Agent Start: 04-03-2022 End: 10-22-2022 aminocaproic acid (AMICAR) 500 mg tablet Indications: 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HCC) Take 2 tablets by mouth every 6 hours as needed (once prior to dentist and then after for 3-4 doses.) for up to 20 days. 40 tablet 3 10/02/2022 Active Comment on above: Take 2 tablets [...] every four hours as needed for headache inadhxgndd-pbqgfnrxeykzz-uknkohfs (FIORICET) 50-325-40 MG per tablet Take 1 [...] pain 6 tablet 0 05/20/2021 05/22/2021 Active Ajovy Autoinjector (1 source) [facility] rt: 3 inject 225 mg by subcutaneous injection every month Ajovy Autoinjector 225 mg, SubCutaneous, qMonth, Refills(s) 0 Start Date: 01/04/23 Status: Ordered [id number] 200 actuat albuterol 0.09 mg/actuat metered dose inhaler (20 sources) beta2-Adrenergic Agonist [facility] rt: 2 albuterol (PROVENTIL HFA;MARJORIE TOLIN HFA) [...] mL as instr ucted every 12 hours. azelastine hydrochloride 0.137 mg/actuat metered dose nasal spray (9 sources) Histamine-1 Receptor Antagonist Start: 04-09-2023 Azelastine HCl 137 MCG/SPRAY solution 04/09/2023 Active Start: 09-07-2022 take 1 spray(s) nasa l route at bedtime azelastine 0.1% nasal spray SPRAY 1 SPRAY INTO EACH NOSTRIL IN THE MORNING AND BEFORE BEDTIME DIRECTED 09/07/2022 Active Start: 09-05-2022 azelastine madeline al [...] IN THE MORNING AND BEFORE BEDTIME DIRECTED baclofen 10 mg oral tablet (20 sources) gamma-Aminobutyric Acid-ergic Agonist Start: 2021 take 10 mg by mouth three times daily baclofen 10 mg, Oral, TID, Refills(s) 0 Start Date: 12/21/21 Status: Ordered Start: 2021 baclofen Oral, TID, Refills(s) 0 Start Date: 12/21/21 Status: Ordered Start: 08-24-2021 End: 02-06-2023 take 1-2 tablets by mouth once daily baclofen (LIORESAL) 10 mg tablet TAKE 1 TO 2 TABLETS BY MOUTH NIGHTLY 60 tablet 5 02/06/2023 Active Comment on above: Take 10-20 mg [...] and incidence of candidiasis. Do not swallow.. Active End: 10-31-2021 budesonide-formoterol (SYMBI NIK) 160-4.5 mcg/actuation [...] Take 5,000 Units by mouth once daily. 04/29/2021 Active take 1 capsule by mouth in the m orning cholecalciferol (Vitamin D-3) 125 MCG (5000 UT) capsule Take 5,000 Units by mouth in the morning. Active Cholecalciferol (VITAMIN D3) 50 MCG (2000 UT) CAPS Take by mouth 0 Active Comment on above: Take 5,000 Units by mouth once daily. cholecalciferol, vitamin D3, (VITAMIN D3 ORAL) (2 sources) cholecalciferol, vitamin D3, (VITAMIN D3 ORAL) Take 1 capsule by mouth. 0 Active ciprofloxacin 250 mg oral tablet (2 sources) Quinolone Antimicrobial Start: 2 take 1 tablet by mouth once daily Cipro 250 mg Tab See Instructions, 1 tab po day prior to procedure. 1 tab po following procedure., # 2 tab(s), Refills(s) 0, Pharmacy: [facility]/pharmacy #[id number], 162, cm, 12/21/21 8:50:00 EST, Height/Length Dosing, 99, kg, 12/21/21 8:50:00 EST, Weight Dosing Start Date: 12/21/21 Status: Ordered CPAP/BIPAP/OTHER (5 sources) CPAP/BIPAP/OTHER Type .CPAPSettings into a note to see current settings/supplies /DME information. Active CPAP/BIPAP/OTHER Type .CPAPSettings into a note to see current settings/supplies/DME information. 0 Active Comment on above: Type .CPAPSettings i nto a note to see current settings/supplies/DME information. Cymbalta 60 mg Cap-DR (1 source) Start: 2022 take 1 capsule by mouth once daily Cymbalta 60 mg Cap-DR 60 mg, Oral, Daily, Refills(s) 0 Start Date: 01/04/23 Status: Ordered 12 hr dextromethorphan hydrobromide 30 mg / guaiFENesin 600 mg extended release oral tablet (1 source) Uncompetitive S-gowklg-M-aspartate Receptor Antagonist, Sigma-1 Agonist take 30-600 mg by mouth once as needed dextromethorphan -guaiFENesin (MUCINEX DM) 30-600 MG per extended release tablet Take 1 tablet by mouth every 12 hours as needed 0 Active DULoxetine 60 mg delayed release oral capsule (20 sources) Serotonin and Norepinephrine Reuptake Inhibitor Start: 2022 take 1 capsule by mouth once daily DULoxetine (CYMBALTA) 60 mg capsule Take 1 capsule (60 mg total) by mouth nightly. 0 12/26/2022 Active Start: 01-28-2022 take 1 capsule by mo uth once daily DULoxetine (CYMBALTA) 30 mg capsule TAKE 1 CAPSULE BY MOUTH EVERY DAY DO NOT CRUSH OR CHEW 01/28/2022 Active Start: 2021 Cymbalta Oral, Refills(s) 0 Start Date: 12/21/21 Status: Ordered Comment on above: TAKE 1 CAPSULE BY MO UTH EVERY DAY DO NOT CRUSH OR CHEW [id number] 0.3 ml EPINEPHrine 1 mg/ml auto-injector (20 sources) alpha-Adrenergic Agonist, beta-Adrenergic Agonist, Catecholamine Start: 07-02-2023 EPINEPHrine (Epipen) 0.3 MG/0.3ML injection syringe 0.3 MG (0.3 ML) INTRAMUSCULARLY ONCE NEEDED FOR ANAPHYLAXIS FOR 2 DOSES 07/02/2023 Active Start: 12-22-2022 EpiPen 2-Erma a s directed, Refills(s) 0 Start Date: 12/22/22 Status: Ordered Start: 09-05-2021 End: 09-05-2021 EPINEPHrine PF 1 MG/ML injec tion Start: 06-05-2021 EPINEPHrine (E PIPEN) 0.3 mg/0.3 mL auto-injector INJECT 0.3 MLS INTO THE MUSCLE ONCE NEEDED (SEVERE ALLERGIC REACTION) 0 06/05/2021 Active Start: 06-04-2021 EPINEPHrine (E PIPEN 2-ERMA) 0.3 MG/0.3ML SOAJ injection Inject 0.3 mLs into the muscle once as needed (severe allergic reaction) 2 each 1 06/04/2021 Active EPINEPHrine (EPI PEN 2-ERMA IJ) Inject as directed. Active EPINEPHrine 0.1 mg/0.1 mL AutoInjector as needed. Active EPINEPHrine (EPI PEN 2-ERMA IJ) Inject as directed. 0 Active End: 06-04-2021 EPINEPHrine (EPIPEN IJ) Inje ct as directed 0 06/04/2021 Discontinued (LIST CLEANUP) EPINEPHrine (EPI PEN IJ) Inject as directed 0 Active Comment on above: as needed. famotidine 20 mg oral tablet (20 sources) [...] mouth twice daily. 0 08/22/2020 06/10/2021 Discontinued Comment on above: Take 40 [...] (FLONASE) 50 mcg/actuation nasal spray Use 1 [place] in each nostril twice daily. 3 Each 07/14/2021 10/19/2021 Active take 2 spray(s) nasa l route in the morning fluticasone (Flonase Sensimist) 27.5 MCG/SPRAY nasal spray Administer 2 sprays into each nostril in the morning. Active Fluticasone Furo ate (FLONASE SENSIMIST) 27.5 mcg/actuation nasal spray 1 spray in each nostril Active take 2 spray(s) nasa l route once daily fluticasone (VERAMYST) 27.5 mcg/actuation nasal spray Administer 2 sprays into each nostril once daily. 0 Active Comment on above: Use 1 [place] in each nostril twice daily. 1 spray [...] (20 sources) Mood Stabilizer, Anti-epileptic Agent Start: 12-17-19 take 1 tablet by mouth at bedtime lamotrigine 150 mg Tab 150 mg = 1 tab(s), Oral, Bedtime, Refills(s) 0 Start Date: 12/16/21 Status: Ordered Comment on above: Take 150 mg by mouth daily at bedtime. Xopenex (20 sources) beta2-Adrenergic Agonist Start: 12-22-19 Xopenex NEB, TID, Refills(s) 0 Start Date: [...] tablet (3 sources) Histamine-1 Receptor Antagonist Start: take 1 mg by mouth once daily in the evening Xyzal 5 mg oral tablet mg, tab(s), Oral, qPM, Refill(s) 0 Start Date: 09/05/22 Status: Ordered levothyroxine sodium 0.1 mg oral tablet (20 sources) l-Thyroxine Start: 023 take 1 tablet by mouth in the morning Synthroid 100 MCG tablet TAKE 1 TABLET (100 MCG TOTAL) BY MOUTH IN THE MORNING 01/07/2023 Active Start: 01-18-2022 take 0.5 tablet [...] before breakfast. Takes 1.5 tablets on Wednesdays Active take 1.5 tablets by mouth once [...] on Wednesdays linagliptin 5 mg oral tablet (2 sources) Dipeptidyl Peptidase 4 Inhibitor Start: 12-23-19 take 1 tablet by mouth in the morning linaGLIPtin (Tradjenta) 5 MG tablet Indications: Type 2 diabetes mellitus with hyperglycemia, without long-term current use of insulin ([facility]) Take 1 tablet (5 mg) by mouth in the morning. 90 tablet 3 01/16/2023 Active LORazepam 0.5 mg oral tablet (20 sources) Benzodiazepine Start: 06-29-19 End: 03-10-19 take 1 tablet by mouth at bedtime [...] twice daily as needed. Magnesium (20 sources) Magnesium 250 mg tab Take 250 mg by mouth. Active magnesium 250 mg tablet Take 1 tablet (250 mg total) by mouth. 0 Active Magnesium 250 mg tab Take 250 mg by mouth. 0 Active Comment on above: Take 250 mg by mouth . magnesium gluconate 500 mg oral tablet (4 sources) take 1 tablet by mouth in the morning magnesium, as gluconate, (Magonate) 500 (27 Mg) MG tablet Take 27 mg by mouth in the morning and 27 mg before bedtime. Active magnesium oxide 400 mg oral tablet (2 sources) Start: 01-04-2023 take 1 tablet by mouth once daily magnesium oxide 400 mg Tab 400 mg = 1 tab(s), Oral, Daily, Refills(s) 0 Start Date: 01/04/23 Status: Ordered magnesium oxide (Mag-Ox) 400 mg tablet 400 mg in the morning and 400 mg before bedtime. 0 Active mecobalamin 1 mg sublingual tablet (20 sources) Start: 04-05-2021 mecobalamin, vitamin B12, 1,000 mcg ODT once daily. 04/05/2021 Active Comment on above: once daily. methocarbamol 500 mg oral tablet (2 sources) [...] needed (vomiting) 12 tablet 0 04/16/2021 Active montelukast 10 mg oral tablet (20 sources) Leukotriene Receptor Antagonist Start: 01-19-2014 take 1 tablet by mouth once daily montelukast (SINGULAIR) 10 mg tablet Take 10 mg by mouth once daily. 01/19/2014 Active Comment on above: Take 10 mg by mouth once daily. Nurtec ODT (1 source) Start: 01-04-2023 take 75 mg by mouth once Nurtec ODT 75 mg, Oral, Once, Refills(s) 0 Start Date: 01/04/23 Status: Ordered ondansetron 4 mg disintegrating oral tablet (8 [...] pantoprazole 40 mg delayed release oral tablet (4 sources) Proton Pump Inhibitor Start: 02-13-19 take 1 tablet by mouth twice daily Pantoprazole [address] Tab 40 mg = 1 tab(s), Oral, BID, # 60 tab(s), Refills(s) 3, Pharmacy: [facility]/pharmacy #[id number], 162, cm, 01/04/23 9:06:00 EST, Height/Length Dosing, 100.5, kg, 01/04/23 9:06:00 EST, Weight Dosing Start Date: 02/13/23 Status: Ordered pantoprazole (NC OTONIX) 40 mg EC tablet Take by mouth daily. 0 Active perflutren lipid microsphere s 1.3 mL in NaCl (PF) 0.9% 10 mL injection (DEFINITY) (20 sources) Start: 07-21-2021 End: 10-20-2022 perflutren lipid microsphere s 1.3 mL in NaCl (PF) 0.9% 10 mL injection (DEFINITY) prasterone 10 mg oral capsul e (4 sources) DHEA 10 MG capsu le Take 5 mg by mouth Active predniSONE 10 mg oral tablet (12 sources) [...] daily. pyridostigmine bromide 60 mg oral tablet (10 sources) Start: take 3 tablets by mouth twice daily pyridostigmine (MESTINON) 60 mg tablet Take 180 mg by mouth two times a day. 07/21/2022 Active Start: 07-21-2022 End: 07-21-2023 pyridostigmine (MESTINON) 60 mg tablet Take 1 tablet (60 mg total) by mouth. 0 07/21/2022 07/21/2023 Active take 1 tablet by shaji th in the morning pyridostigmine (Mestinon) 180 MG ER tablet Take 180 mg by mouth in the morning and 180 mg before bedtime. Do not crush or chew.. Active Comment on above: Take by mouth. rimegepant 75 mg disintegrating oral tablet (20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 CT Abdomen/Pelvis w/o Contrast 3. Gross hematuria (R31.0: Gross hematuria) Neg cytology 12/21/21 Cysto 01/23/22 neg for b.t. [3] UA today without signs of blood or infection. Patient denies any recent UTI or episode of gross hematuria. Patient knows to contact office with gross hematuria Ordered: CT Abdomen/Pelvis w/o Contrast 4. Unspecified urethral stricture, female (N35.92: Unspecified urethral stricture, female) S/p cysto/UD 01/23/[address] Green [4] Ordered: CT Abdomen/Pelvis w/o Contrast Follow-up With When Contact Information CHELO Choe APRN, Selma Benavides, FAM, URL Additional Instructions: Pending CT Patient Education Hematuria, Adult Dietary Guidelines to Help Prevent Kidney Stones Problem List/Past Medical History Ongoing Abnormal urine sediment Angiomyolipoma Anxiety and depression Arachnoid cyst Asthma BMI 38.0-38.9,adult Duodenogastric bile reflux Dyspareunia in female GERD (gastroesophageal reflux disease) Gross hematuria Hypothyroidism Insomnia Kidney stone Metabolic syndrome Morbid obesity Myoclonic jerking Obstructive sleep apnea syndrome Ovarian cyst Paresthesia Peripheral edema Platelet dysfunction Right inguinal hernia Stress incontinence Thyroid nodule Type 2 diabetes mellitus Unspecified urethral stricture, female Urethral stricture Vitamin D deficiency Historical No qualifying data Procedure/Surgical History EGD - esophagogastroduodenoscopy (01/31 (more content not included)... Normal [facility] Comment on above: Result Comment: Elec tronically Signed By: CHELO Choe APRN, [place] X\.br\Date and Time Signed: 10/04/23 08:36 EDT Ambulatory Visit Summaryon 0 10-02-2023 Ambulatory Visit Summary Ambulatory Visit Summary LEANA TRAN :1985 Visit Date:10/02/2023 Ambulatory Visit Instructions Your Diagnosis Angiomyolipoma Kidney stone Gross hematuria Unspecified urethral stricture, female Your Care Team Attending Physician - CHELO Choe APRN, [place] X Primary Care Physician - CAS DOWELL MD This Is Your Medications List baclofen budesonide-formoterol (Symbicort 160/4.5 inhalation aerosol with [...] Nasal septoplasty, Tubal ligation, Tympanostomy. Discharge Vitals Temperature (Temporal Artery) 37 ?C Heart Rate (Peripheral) 68 Respiratory Rate 16 Blood Pressure 130/84 Height 162 cm Height 64 in Weight 101 kg Weight 222.2 lb BMI 38.48 Medications What How Much When Why Instructions Unchanged baclofen 10 Milligram By Mouth 3 times a day Unchanged budesonide-formoterol (Symbicort 160/ 4.5 inhalation aerosol with adapter) 2 Puffs Inhalation 2 times a day Unchanged cholecalciferol (Vitamin D3) Unchanged duloxetine (Cymbalta 60 mg Cap-DR) 60 Milligram By Mouth Every day Unchanged epinephrine (EpiPen 2-Erma) as directed Unchanged fluticasone nasal (Flonase Allergy Relief 50 mcg/ inh nasal spray) Every day Unchanged fremanezumab (Ajovy Autoinjector) 225 Milligram Subcutaneous Once a month Unchanged lamotrigine (lamotrigine 150 mg Tab) 1 Tablets By Mouth At bedtime Unchanged levothyroxine (Synthroid 112 mcg Tab) By Mouth Every day Unchanged linagliptin (Tradjenta 5 mg oral tablet) 1 Tablets By Mouth Every day Unchanged magnesium oxide (magnesium oxide 400 mg Tab) 1 Tablets By Mouth Every day Unchanged montelukast (Singulair 10 mg Tab) By Mouth Every day Unchanged pantoprazole (Pantoprazole [address] Tab) 1 Tablets By Mouth 2 times a day GERD (gastroesophageal reflux disease) Unchanged rimegepant (Nurtec ODT) 75 Milligram By Mouth Once Unchanged sertraline (sertraline 100 mg Tab) 2 Tablets By Mouth Every day Unchanged sucralfate (Carafate 1 gram Tab) 1 Tablets By Mouth Four times a day (before meals and at bedtime) prescribed after EGD Unchanged tamsulosin (tamsulosin 0.4 mg Cap) See instructions take 1-2 tabs po daily when you feel like you are passing a stone Unchanged ubrogepant (Ubrelvy) 50 Milligram By Mouth Once Unchanged zonisamide (zonisamide 100 mg Cap) By Mouth Every day as diretced Allergies Betadine (Rash) Ceclor (SOB - Shortness of breath) Latex (Rash) Motrin (SOB - Shortness of breath) Valtrex (Anaphylaxis) aspirin (Hives) clindamycin (Rash) iodine (Unknown) macrolide antibiotics (Allergy) penicillin (SOB - Shortness of breath) sulfa drugs (Allergy) Problems Ongoing - Any problem that you are currently receiving treatment for. Abnormal urine sediment Angiomyolipoma Anxiety and depression Arachnoid cyst Asthma BMI 38.0-38.9,adult Duodenogastric bile reflux Dyspareunia in female GERD (gastroesophageal reflux disease) Gross hematuria Hypothyroidism Insomnia Kidney stone Metabolic syndrome Morbid obesity Myoclonic jerking Obstructive sleep apnea syndrome Ovarian cyst Paresthesia Peripheral edema Platelet dysfunction Right inguinal hernia Stress incontinence Thyroid nodule Type 2 diabetes mellitus Unspecified urethral stricture, female Urethral stricture Vitamin D deficiency Patient Survey You may receive a survey via text or e-mail asking about your office visit. Please share your experience with us by completing your survey. We appreciate your feedback and thank you for choosing us for your care. Normal [facility] CBC W Auto Differential pane l (Bld)on 10-01-2023 Basophils (Bld) [#/Vol] 0.04 10*3/uL Normal <0.11 [facility] Comment on above: Order Comment: Speci men Type: BLOOD SPECIMEN Ordering Facility: [facility] Address: [address] [place] [address] Performed By: #### 5 7021-8 #### [facility] CLIA [id number] [address] [place] [address] Basophils/100 WBC (Bld) 0.7 % Normal [facility] Comment on above: Order Comment: Speci men Type: BLOOD SPECIMEN Ordering Facility: [facility] Address: [address] [place] [address] Performed By: #### 5 7021-8 #### [facility] CLIA [id number] [address] [place] [address] Differential cell count method Nom (Bld) Auto Normal [facility] Comment on above: Order Comment: Speci men Type: BLOOD SPECIMEN Ordering Facility: [facility] Address: [address] [place] [address] Performed By: #### 5 7021-8 #### [facility] CLIA [id number] [address] [place] [address] Eosinophils (Bld) [#/Vol] 0.15 10*3/uL Normal <0.46 [facility] Comment on above: Order Comment: Speci men Type: BLOOD SPECIMEN Ordering Facility: [facility] Address: [address] [place] [address] Performed By: #### 5 7021-8 #### [facility] CLIA [id number] [address] [place] [address] Eosinophils/100 WBC (Bld) 2.6 % Normal [facility] Comment on above: Order Comment: Speci men Type: BLOOD SPECIMEN Ordering Facility: [facility] Address: [address] [place] [address] Performed By: #### 5 7021-8 #### [facility] CLIA [id number] [address] [place] [address] Erythrocyte distribution width (RBC) [Ratio] 11.6 % Normal 11.5-15.0 [facility] Comment on above: Order Comment: Speci men Type: BLOOD SPECIMEN Ordering Facility: [facility] Address: [address] [place] [address] Performed By: #### 5 7021-8 #### [facility] CLIA [id number] [address] [place] [address] Hematocrit (Bld) [Volume fraction] 41.7 % Normal 36.0-46.0 [facility] Comment on above: Order Comment: Speci men Type: BLOOD SPECIMEN Ordering Facility: [facility] Address: [address] [place] [address] Performed By: #### 5 7021-8 #### [facility] CLIA [id number] [address] [place] [address] Hemoglobin (Bld) [Mass/Vol] 14.7 g/dL Normal 11.5-15.5 [facility] Comment on above: Order Comment: Speci men Type: BLOOD SPECIMEN Ordering Facility: [facility] Address: [address] [place] [address] Performed By: #### 5 7021-8 #### [facility] CLIA [id number] [address] [place] [address] Immature granulocytes (Bld) [#/Vol] 0.03 10*3/uL Normal <0.10 [facility] Comment on above: Order Comment: Speci men Type: BLOOD SPECIMEN Ordering Facility: [facility] Address: [address] [place] [address] Performed By: #### 5 7021-8 #### [facility] CLIA [id number] [address] [place] [address] Immature granulocytes/100 WBC (Bld) 0.5 % Normal [facility] Comment on above: Order Comment: Speci men Type: BLOOD SPECIMEN Ordering Facility: [facility] Address: [address] [place] [address] Performed By: #### 5 7021-8 #### [facility] CLIA [id number] [address] [place] [address]65[address] Lymphocytes (Bld) [#/Vol] 1.23 10*3/uL Normal 1.00-4.00 [facility] Comment on above: Order Comment: Speci men Type: BLOOD SPECIMEN Ordering Facility: [facility] Address: [address] [place] [address] Performed By: #### 5 7021-8 #### [facility] CLIA [id number] [address] [place] [address] Lymphocytes/100 WBC (Bld) 21.4 % Normal [facility] Comment on above: Order Comment: Speci men Type: BLOOD SPECIMEN Ordering Facility: [facility] Address: [address] [place] [address] Performed By: #### 5 7021-8 #### [facility] CLIA [id number] [address] [place] [address]33 MCH (RBC) [Entitic mass] 30.2 pg Normal 26.0-34.0 [facility] Comment on above: Order Comment: Speci men Type: BLOOD SPECIMEN Ordering Facility: [facility] Address: [address] [place] [address] Performed By: #### 5 7021-8 #### [facility] CLIA [id number] [address] [place] [address] 73885 MCHC (RBC) [Mass/Vol] 35.3 g/dL Normal 30.5-36.0 [facility] Comment on above: Order Comment: Speci men Type: BLOOD SPECIMEN Ordering Facility: [facility] Address: [address] [place] [address] Performed By: #### 5 7021-8 #### [facility] CLIA [id number] [address] [place] [address]69 MCV (RBC) [Entitic vol] 85.8 fL Normal 80.0-100.0 [facility] Comment on above: Order Comment: Speci men Type: BLOOD SPECIMEN Ordering Facility: [facility] Address: [address] [place] [address] Performed By: #### 5 7021-8 #### [facility] CLIA [id number] [address] [place] [address] Monocytes (Bld) [#/Vol] 0.24 10*3/uL Normal <0.87 [facility] Comment on above: Order Comment: Speci men Type: BLOOD SPECIMEN Ordering Facility: [facility] Address: [address] [place] [address] Performed By: #### 5 7021-8 #### [facility] CLIA [id number] [address] [place] [address] Monocytes/100 WBC (Bld) 4.2 % Normal [facility] Comment on above: Order Comment: Speci men Type: BLOOD SPECIMEN Ordering Facility: [facility] Address: [address] [place] [address] Performed By: #### 5 7021-8 #### [facility] CLIA [id number] [address] [place] [address] 28058 Neutrophils (Bld) [#/Vol] 4.06 10*3/uL Normal 1.45-7.50 [facility] Comment on above: Order Comment: Speci men Type: BLOOD SPECIMEN Ordering Facility: [facility] Address: [address] [place] [address] Performed By: #### 5 7021-8 #### [facility] CLIA [id number] [address] [place] [address]93 Neutrophils/100 WBC (Bld) 70.6 % Normal [facility] Comment on above: Order Comment: Speci men Type: BLOOD SPECIMEN Ordering Facility: [facility] Address: [address] [place] [address] Performed By: #### 5 7021-8 #### [facility] CLIA [id number] [address] [place] [address] 16792 Nucleated RBC (Bld) [#/Vol] 10*3/uL Normal <0.01 [facility] Comment on above: Order Comment: Speci men Type: BLOOD SPECIMEN Ordering Facility: [facility] Address: [address] [place] [address] Performed By: #### 5 7021-8 #### [facility] CLIA [id number] [address] [place] [address] Nucleated RBC/100 WBC (Bld) [Ratio] 0.0 /100 WBC Normal [facility] Comment on above: Order Comment: Speci men Type: BLOOD SPECIMEN Ordering Facility: [facility] Address: [address] [place] [address] Performed By: #### 5 7021-8 #### [facility] CLIA [id number] [address] [place] [address]000 Platelet mean volume (Bld) [Entitic vol] 10.0 fL Normal 9.0-12.7 [facility] Comment on above: Order Comment: Speci men Type: BLOOD SPECIMEN Ordering Facility: [facility] Address: [address] [place] [address] Performed By: #### 5 7021-8 #### [facility] CLIA [id number] [address] [place] [address] Platelets (Bld) [#/Vol] 241 10*3/uL Normal 150-400 [facility] Comment on above: Order Comment: Speci men Type: BLOOD SPECIMEN Ordering Facility: [facility] Address: [address] [place] [address] Performed By: #### 5 7021-8 #### [facility] CLIA [id number] [address] [place] [address] 83074 RBC (Bld) [#/Vol] 4.86 10*6/uL Normal 3.90-5.20 [facility] Comment on above: Order Comment: Speci men Type: BLOOD SPECIMEN Ordering Facility: [facility] Address: [address] [place] [address] Performed By: #### 5 7021-8 #### [facility] CLIA [id number] [address] [place] [address]443 WBC (Bld) [#/Vol] 5.75 10*3/uL Normal 3.70-11.00 [facility] Comment on above: Order Comment: Dulce Maria jules Type: BLOOD SPECIMEN Ordering Facility: [facility] Address: [address] [place] [address] Performed By: #### 5 7021-8 #### [facility] CLIA [id number] [address] [place] [address] CNOVSPon 10-01-2023 CNOVSP Visit (SP) Office (H EMASA) LEANA TRAN ([id number]) 1985 F Date Time Provider Department 10/01/23 9:45 AM FUENTES AMARAL During your visit today, we recorded the following information about you: Temperature Pulse Respiration Blood pressure 97 degrees 71/minute 16/minute 123/84 Weight Height 100 kg 1.626 m Fuentes Amaral MD 10/03/2023 7:47 AM Signed NAME: Leana Tran CLINIC NO.: [id number] DATE OF SERVICE: October 01, 2023 (Munir) Some elements in this clinic note that are critical to medical decision making have been carefully reviewed and included from a prior clinic note dated: October 02, 2022 (Munir) Additional Clinicians involved in Leana Tran's care: Cas Dowell (PCP), Rajinder Collins (surgery), Rubens Tim (ObGyn), DIAGNOSIS: Undiagnosed bleeding disorder, work-up pending - transition of care. ASSESSMENT: 37 year old with an unclear bleeding disorder [...] prior to dental extraction FFP for major surgery RTC in 12 months - CBC, CMP - HPI: CASE HISTORY: Reverse Chronological Order July 2021, above labs repeated with the same result; TEG normal; fibrinogen antigen normal May 2021, PT 10 seconds, PTT 32.7 [...] dose response. Overall, these findings were non-specific. Referred to me in May 2021 for pre-operative clearance prior to elective inguinal hernia repair She has had 2 normal vaginal deliveries with hemorrhage but patient does not remember if any medical or surgical intervention was done. She had a during her third and reports that the surgery took longer than anticipated. Previous bleeding history includes menorrhagia (endometrial ablation [...] had any bleeding issues after that procedure. Patient has an extensive and longstanding history of bleeding issues. In 2008, she was seen by Dr. Shirley and was noted to have an elevated PTT of 36 seconds. This corrected by addition of FFP. 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 She reportedly tested negative for von Willebrand disease. Some of these labs have been scanned in our EMR (2011). Updated Visit, October 01, 2023: Leana returns today for her annual follow up. She denies any bleeding or any need for Amicar since our last visit. Anemia has improved. She has one m (more content not included)... Normal [facility] Comprehensive metabolic 2000 panelon 10-01-2023 Albumin [Mass/Vol] 4.4 g/dL Normal 3.9-4.9 [facility] Comment on above: Order Comment: Dulce Maria jules Type: BLOOD SPECIMEN Ordering Facility: [facility] Address: [address] [place] [address] Performed By: #### 2 4323-8 #### [facility] CLIA [id number] [address] [place] [address] [place] ALP [Catalytic activity/Vol] 73 U/L Normal 34-123 [facility] Comment on above: Order Comment: Dulce Maria jules Type: BLOOD SPECIMEN Ordering Facility: [facility] Address: [address] [place] [address] Performed By: #### 2 4323-8 #### [facility] CLIA [id number] [address] [place] [address] [place] ALT [Catalytic activity/Vol] 25 U/L Normal 7-38 [facility] Comment on above: Order Comment: Speci men Type: BLOOD SPECIMEN Ordering Facility: [facility] Address: [address] [place] [id number] Performed By: #### 2 4323-8 #### [facility] CLIA [id number] [address] [place] [address] [place] Anion gap [Moles/Vol] 9 mmol/L Normal 8-15 [facility] Comment on above: Order Comment: Speci men Type: BLOOD SPECIMEN Ordering Facility: [facility] Address: [address] [place] [address] Performed By: #### 2 4323-8 #### [facility] CLIA [id number] [address] [place] [address] [place] AST [Catalytic activity/Vol] 21 U/L Normal 13-35 [facility] Comment on above: Order Comment: Speci men Type: BLOOD SPECIMEN Ordering Facility: [facility] Address: [address] [place] [address] Performed By: #### 2 4323-8 #### [facility] CLIA [id number] [address] [place] [address] [place] Bilirubin [Mass/Vol] 0.5 mg/dL Normal 0.2-1.3 [facility] Comment on above: Order Comment: Speci men Type: BLOOD SPECIMEN Ordering Facility: [facility] Address: [address] [place] [id number] Performed By: #### 2 4323-8 #### [facility] CLIA [id number] [address] [place] [address] [place] Calcium [Mass/Vol] 9.3 mg/dL Normal 8.5-10.2 [facility] Comment on above: Order Comment: Speci men Type: BLOOD SPECIMEN Ordering Facility: [facility] Address: [address] [place], [place] [address] Performed By: #### 2 4323-8 #### [facility] CLIA [id number] [facility] [place] [address] [place] Chloride [Moles/Vol] 104 mmol/L Normal 98-107 [facility] Comment on above: Order Comment: Speci men Type: BLOOD SPECIMEN Ordering Facility: [facility] Address: [address] [place] [address] Performed By: #### 2 4323-8 #### [facility] CLIA [id number] [address] [place] [address] [place] CO2 [Moles/Vol] 25 mmol/L Normal 22-30 [facility] Comment on above: Order Comment: Speci men Type: BLOOD SPECIMEN Ordering Facility: [facility] Address: [address] [place] [address] Performed By: #### 2 4323-8 #### [facility] CLIA [id number] [address] [place] [address] [place] Creatinine [Mass/Vol] 1.01 mg/dL High 0.58-0.96 [facility] Comment on above: Order Comment: Speci men Type: BLOOD SPECIMEN Ordering Facility: [facility] Address: [address] [place] [address] Performed By: #### 2 4323-8 #### [facility] CLIA [id number] [address] [place] [address] [place] Creatinine and Glomerular filtration rate.predicted panel (S/P/Bld) 73 mL/min/1.73m??? Normal >=60 [facility] Comment on above: Order Comment: Speci men Type: BLOOD SPECIMEN Ordering Facility: [facility] Address: [address] [place] [address] Result Comment: Maricarmen mated Glomerular Filtration Rate [...] actual GFR. Performed By: #### 2 4323-8 #### [facility] CLIA [id number] [address] [place] [address] [place] Glucose [Mass/Vol] 136 mg/dL High 74-99 [facility] Comment on above: Order Comment: Speci men Type: BLOOD SPECIMEN Ordering Facility: [facility] Address: [address] [place] [address] Result Comment: The [place] Diabetes Association (ADA) provides guidance for cutoff [...] Standards of Medical Care in Diabetes 2016, [place] [employer]. Diabetes Care. 2016.39(Suppl 1). Performed By: #### 2 4323-8 #### [facility] CLIA [id number] [address] [place] [address] [place] Potassium [Moles/Vol] 3.9 mmol/L Normal 3.7-5.1 [facility] Comment on above: Order Comment: Speci men Type: BLOOD SPECIMEN Ordering Facility: [facility] Address: [address] [place] [address] Performed By: #### 2 4323-8 #### [facility] CLIA [id number] [address] [place] [address] [place] Protein [Mass/Vol] 7.1 g/dL Normal 6.3-8.0 [facility] Comment on above: Order Comment: Speci men Type: BLOOD SPECIMEN Ordering Facility: [facility] Address: [address] [place] [address] Performed By: #### 2 4323-8 #### [facility] CLIA [id number] [address] [place] [address] [place] Sodium [Moles/Vol] 138 mmol/L Normal 136-144 [facility] Comment on above: Order Comment: Speci men Type: BLOOD SPECIMEN Ordering Facility: [facility] Address: [address] [place] [address] Performed By: #### 2 4323-8 #### [facility] CLIA [id number] [address] [place] [address] [place] Urea nitrogen [Mass/Vol] 12 mg/dL Normal 7-21 [facility] Comment on above: Order Comment: Speci men Type: BLOOD SPECIMEN Ordering Facility: [facility] Address: [address] [place] [address] Performed By: #### 2 4323-8 #### [facility] CLIA [id number] [address] [place] [address] OF [place] Ambulatory Visit Summaryon 0 02-13-2023 Ambulatory Visit Summary LEANA TRAN :1985 Visit Date:02/13/2023 Ambulatory Visit Instructions Your Diagnosis GERD (gastroesophageal reflux disease), Duodenogastric bile reflux BMI 38.0-38.9,adult Your Care Team Attending Physician - MARLON PEREZ, Tesfaye Almonte Primary Care Physician - GRAYSON PEREZ, CAS This Is Your Medications List pantoprazole (Pantoprazole [...] HEREDIA, LORAINE Razo Where: [facility] General Surgery Office/Clini c Noteon 02-13-2023 General [...] BID, # 60 tab(s), Refills(s) 3, Pharmacy: [facility]/pharmacy #[id number], 162, cm, 01/04/23 9:06:00 EST, Height/Length Dosing, 100.5, kg, 01/04/23 9:06:00 EST, Weight Dosing E&M of Est. Patient Low 20-29 Min 58598 3. BMI 38.0-38.9,adult (Z68.38: Body mass index [BMI] 38.0-38.9, adult) recommend diet and exercise. Ordered: E&M of Est. Patient Low 20-29 Min 36201 Follow-up No qualifying data available Problem List/Past [...] Sister. Heart disease: (more content not included)... [facility] Comment on above: Result Comment: Elec tronically Signed By: MARLON PEREZ, Tesfaye Richard\Date and Time Signed: 02/13/23 09:58 EST Operative Reporton Operative Report [id number]#1.00TIFF [facility] Reportson 01-31-2023 Lab Reports [id number]#1.00TIFF [facility] Consultation Noteon 01-27-20 Consultation Note [id number]#1.00TIFF [facility] Office Visiton 01-10-2023 Follow-up visit [id number] Megan Tran 1985 F Date Provider Department Center 01/10/2023 [facility] Family History Problem [...] Alive Son Alive Son Alive Level of Service:06439 [place] OFFICE/OUTPATIENT ESTABLISHED LOW MDM 20-29 MIN Normal [facility] Insurance Correspondenceon 1 03-11-2022 Insurance Correspondence [id number]#1.00TIFF [facility] Ambulatory Visit Summaryon 03-06-2022 Ambulatory Visit Summary LEANA TRAN :1985 [...] Appointments Sunday 9:00 AM EDT With: LORAINE BURNHAM PA-C Where: [facility] Ambulatory Visit Summary LEANA TRAN [...] Appointments Sunday 9:00 AM EDT With: LORAINE BURNHAM PA-C Where: [facility] Consent for Procedure/Surger yon 01-04-2023 Consent for Procedure/Surgery [id number]#1.00TIFF [facility] Hemoglobin Q6yCllssut By: Julianne Kong on 01-01-2023 [facility] Office Visiton 01-01-2023 Follow-up visit [id number] Megan Tran 1985 F Date Provider Department Center 01/01/2023 [facility] Family History Problem Relation Age of [...] Alive Son Alive Son Alive Level of Service:71318 [place] OFFICE/OUTPATIENT ESTABLISHED [facility] 10-19 MIN Normal [facility] 36on 12-25-2022 36 Pt calls stating yareli t she was seen 12/18 at ER for Chest pain an EKG was done and she would like to discuss her results. Normal [facility] Telephoneon 12-25-2022 Telephone [id number] Megan Tran 1985 Provider Department Center 12/25/2022 [facility] Family History Problem [...] Son Alive Son Alive Son Alive Normal [facility] XR CHEST PORTABLEon 12-20-19 23 XR CHEST [...] Juan Kidd MD 12/19/22 Final result Normal [facility] Basic Metabolic Profon 12-18 Anion gap [Moles/Vol] 10 mmol/L Normal - [facility] Comment on above: Performed By: #### B ANTHONY DRAPER TROPI #### [facility] [address] [place] [address] [place] [address] Slide Machine Tender: Belén Dale MD BUN/CRE Ratio 12 Normal 9-20 [facility] Comment on above: Performed By: #### B ANTHONY DRAPER TROPI #### [facility] [address] [place], [place] [address] Slide Machine Tender: Belén Dale MD Calcium [Mass/Vol] 9.5 mg/dL Normal 8.6-10.4 [facility] Comment on above: Performed By: #### B ANTHONY DRAPER, TROPI #### [facility] [address] [place], [place] [address] Slide Machine Tender: Belén Dale MD Chloride [Moles/Vol] 102 mmol/L Normal 98-107 [facility] Comment on above: Performed By: #### B ANTHONY DRAPER, TROPI #### [facility] [address] [place], [place] [address] Slide Machine Tender: Belén Dale MD CO2 [Moles/Vol] 26 mmol/L Normal 20-31 [facility] Comment on above: Performed By: #### B ANTHONY DRAPER, TROPI #### [facility] [address] [place] [address] Slide Machine Tender: Belén Dale MD Creatinine [Mass/Vol] 1.0 mg/dL High 0.5-0.9 [facility] Comment on above: Performed By: #### B ANTHONY DRAPER, TROPI #### [facility] [address] [place] [address] Slide Machine Tender: Belén Dale MD GFR/1.73 sq M.predicted among non-blacks MDRD (S/P/Bld) [Vol rate/Area] mL/min/{1.73_m2} Normal >60 [facility] Comment on above: Result Comment: These results [...] By: #### B ANTHONY DRAPER, TROPI #### [facility] [address] [place] [address] Slide Machine Tender: Belén Dale MD Glucose [Mass/Vol] 97 mg/dL Normal 70-99 [facility] Comment on above: Performed By: #### B ANTHONY DRAPER, TROPI #### [facility] [address] [place] [address] Slide Machine Tender: Belén Dale MD Potassium [Moles/Vol] 4.0 mmol/L Normal 3.7-5.3 [facility] Comment on above: Performed By: #### B ANTHONY DRAPER, TROPI #### [facility] [address] [place] [address] Slide Machine Tender: Belén Dale MD Sodium [Moles/Vol] 138 mmol/L Normal 135-144 [facility] Comment on above: Performed By: #### B ANTHONY DRAPER, TROPI #### [facility] [address] [place], [place] [address] Slide Machine Tender: Belén Dale MD Urea nitrogen [Mass/Vol] 12 mg/dL Normal 6-20 [facility] Comment on above: Performed By: #### B ANTHONY DRAPER, TROPI #### [facility] [address] [place] [address] Slide Machine Tender: Belén Dale MD CBC with Diffon 12-18-2022 Abs. Basophil 0.04 k/uL Normal 0.00-0.20 [facility] Comment on above: Performed By: #### B ANTHONY DRAPER, TROPI #### [address] [place], [place] [address] Slide Machine Tender: Belén Dale MD Abs.Imm.Granulocyte 0.04 k/uL Normal 0.00-0.30 [facility] Comment on above: Performed By: #### B ANTHONY DRAPER, TROPI #### [address] [place], [place] [address] Slide Machine Tender: Belén Dale MD Abs.Neutrophil (Seg) 5.01 k/uL Normal 1.50-8.10 [facility] Comment on above: Performed By: #### B ANTHONY DRAPER, TROPI #### [address] [place], [place] [address] Slide Machine Tender: Belén Dale MD Basophils/100 WBC (Bld) 1 % Normal 0-2 [facility] Comment on above: Performed By: #### B ANTHONY DRAPER, TROPI #### [facility] [address] [place], [place] [address] Slide Machine Tender: Belén Dale MD Eosinophils (Bld) [#/Vol] 0.19 10*3/uL Normal 0.00-0.44 [facility] Comment on above: Performed By: #### B BARON, ANTHONY, TROPI #### [facility] [address] [place] [address] Dr. [place], [place] [address] Slide Machine Tender: Belén Dale MD Eosinophils/100 WBC (Bld) 3 % Normal 1-4 [facility] Comment on above: Performed By: #### B BARON CDP, TROPI #### [address] [place], [place] [address] Slide Machine Tender: Belén Dale MD Erythrocyte distribution width (RBC) [Ratio] 11.6 % Low 11.8-14.4 [facility] Comment on above: Performed By: #### B ANTHONY DRAPER, TROPI #### [address] [place] [address] Slide Machine Tender: Belén Dale MD Hematocrit (Bld) [Volume fraction] 44.3 % Normal 36.3-47.1 [facility] Comment on above: Performed By: #### B ANTHONY DRAPER, TROPI #### [address] [place], [facility]83 Slide Machine Tender: Belén Dale MD Hemoglobin (Bld) [Mass/Vol] 14.8 g/dL Normal 11.9-15.1 [facility] Comment on above: Performed By: #### B ANTHONY DRAPER, TROPI #### [address] [place], [facility]83 Slide Machine Tender: Belén Dale MD Immature granulocytes/100 WBC (Bld) 1 % High 0 [facility] Comment on above: Performed By: #### B BARON CDP, TROPI #### [address] [place], [facility]83 Slide Machine Tender: Belén Dale MD Lymphocytes (Bld) [#/Vol] 1.71 10*3/uL Normal 1.10-3.70 [facility] Comment on above: Performed By: #### B BARON CDP, TROPI #### [facility] [address] [place], [place] [address] Slide Machine Tender: Belén Dale MD Lymphocytes/100 WBC (Bld) 23 % Low 24-43 [facility] Comment on above: Performed By: #### B BARON, CDP, TROPI #### [facility] [address] [place], [facility]83 Slide Machine Tender: Belén Dale MD MCH (RBC) [Entitic mass] 29.0 pg Normal 25.2-33.5 [facility] Comment on above: Performed By: #### B BARON CDP, TROPI #### [address] [place], [place] [address]483 Slide Machine Tender: Belén Dale MD MCHC (RBC) [Mass/Vol] 33.4 g/dL Normal 28.4-34.8 [facility] Comment on above: Performed By: #### B ANTHONY DRAPER, TROPI #### [address] [place], [facility]83 Slide Machine Tender: Belén Dale MD MCV (RBC) [Entitic vol] 86.9 fL Normal 82.6-102.9 [facility] Comment on above: Performed By: #### B ANTHONY DRAPER, TROPI #### [facility] [address] [place] [address] Dr. [place], [facility]83 Slide Machine Tender: Belén Dale MD Monocytes (Bld) [#/Vol] 0.44 10*3/uL Normal 0.10-1.20 [facility] Comment on above: Performed By: #### B BARON CDP, TROPI #### [facility] [address] [place] [address] Slide Machine Tender: Belén Dale MD Monocytes/100 WBC (Bld) 6 % Normal 3-12 [facility] Comment on above: Performed By: #### B BARON CDP, TROPI #### [facility] [address] [place], [place] [address] Slide Machine Tender: Belén Dale MD Neutrophil (Seg) 66 % High 36-65 [facility] Comment on above: Performed By: #### B MP, CDP, TROPI #### [facility] [address] [place], [facility]83 Slide Machine Tender: Belén Dale MD NRBC Automated 0.0 per 100 WBC Normal 0.0 [facility] Comment on above: Performed By: #### B BARON CDP, TROPI #### [address] [place] [address] Slide Machine Tender: Belén Dale MD Platelet mean volume (Bld) [Entitic vol] 9.9 fL Normal 8.1-13.5 [facility] Comment on above: Performed By: #### B ANTHONY DRAPER, TROPI #### [address] [place], [facility]83 Slide Machine Tender: Belén Dale MD Platelets (Bld) [#/Vol] 280 10*3/uL Normal 138-453 [facility] Comment on above: Performed By: #### B ANTHONY DRAPER, TROPI #### [address] [place], [facility]83 Slide Machine Tender: Belén Dale MD RBC (Bld) [#/Vol] 5.10 10*6/uL Normal 3.95-5.11 [facility] Comment on above: Performed By: #### B BARON CDP, TROPI #### [facility] [address] [place] [address] Slide Machine Tender: Belén Dale MD WBC (Bld) [#/Vol] 7.4 10*3/uL Normal 3.5-11.3 [facility] Comment on above: Performed By: #### B MP, CDP, TROPI #### [facility] [address] [place] [address] Slide Machine Tender: Belén Dale MD D-Dimer Teston 12-18-2022 D-Dimer Test 0.36 ug/mL FEU Normal 0.00-0.59 [facility] Comment on above: Result Comment: When [...] with distal DVT. Performed By: #### M CELESTINA Espinosa, ANTHONY #### [facility] [address] [place] [address] Slide Machine Tender: Belén Dale MD Physician Referralon 023 Physician Referral [id number]#[id number] Normal [facility] DAPT-OjO-8ms 12-18-2022 SARS-CoV-2 (COVID-19) RNA CHRISTI+probe Ql (Unsp spec) Not detected Normal NOTDET [facility] Comment on above: Result Comment: Rapid NAAT: [...] management decisions. Fact sheet for Healthcare Providers: https://www.fda.gov/media/430633/download Fact sheet for Patients: https://www.fda.gov/media/638640/download Methodology: Isothermal Nucleic Acid Amplification Performed By: #### M CELESTINA Espinosa, ANTHONY #### [facility] [address] [place] [address] Slide Machine Tender: Belén Dale MD Troponinon 12-18-2022 Troponin, High Sens 6 ng/L Normal 0-14 [facility] Comment on above: Result Comment: High Sensitivity Troponin values cannot be compared with other Troponin methodologies. Performed By: #### B ANTHONY DRAPER, TROPI #### [facility] [address] [place] [address] Slide Machine Tender: Belén Dale MD Telemedicineon 11-14-2022 Telemedicine [id number] Megan Tran 1985 F Date Provider Department Center 11/14/2022 [facility] Family History Problem [...] Alive Son Alive Son Alive Level of Service:97134 [place] OFFICE/OUTPATIENT ESTABLISHED LOW MDM 20-29 MIN Reason for Visit and Comments: Telehealth Audio/video Visit [871] Normal [facility] CELIAC ANTIBODIES PROFILEon 06-16-2022 Deamidated Gliadin Abs, IgA 26 units Critically high 0-19 [facility] Comment on above: Result Comment: Nega tive 0 - 19 Weak Positive 20 - 30 Moderate to Strong Positive >30 Performed By: #### C BC #### [facility] [address] [place] [address] [address] Nilton Mccall Deamidated Gliadin Abs, IgG 5 units Normal 0-19 [facility] Comment on above: Result Comment: Nega tive 0 - 19 Weak Positive 20 - 30 Moderate to Strong Positive >30 Performed By: #### C BC #### [facility] [address] [place] [address] Dr. Nilton Mccall Endomysial Antibody IgA Negative Normal Negative [facility] Comment on above: Performed By: #### C BC #### [facility] [address] [place] [address] [address] Nilton Mccall Immunoglobulin A, Qn, Serum 205 mg/dL Normal 87-352 [facility] Comment on above: Performed By: #### C BC #### [facility] [address] [place] [address] [address] Nilton Mccall t-Transglutaminase (tTG) IgA <2 Normal 0-3 [facility] Comment on above: Result Comment: Nega tive 0 - 3 Weak Positive 4 - 10 Positive >10 . Tissue Transglutaminase (tTG) has been identified as the endomysial antigen. Studies have demonstr- ated that endomysial IgA antibodies have over 99% specificity for gluten sensitive enteropathy. Performed By: #### C BC #### [facility] [address] [place] [address] [address] Nilton Mccall t-Transglutaminase (tTG) IgG 3 U/mL Normal 0-5 [facility] Comment on above: Result Comment: Nega tive 0 - 5 Weak Positive 6 - 9 Positive >9 Performed By: #### C BC #### [facility] [address] [place], [place] [address] Dr. Nilton Mccall CBC AUTO DIFFon 06-15-2022 BASO # 0.0 103/ul Normal 0.0-0.1 [facility] Comment on above: Performed By: #### C BC #### [facility] [address] [place] [address] Dr. Nilton Mccall Basophils/100 WBC (Bld) 0.5 % Normal 0.2-2.0 [facility] Comment on above: Performed By: #### C BC #### [facility] [address] [place] [address] Dr. Nilton Mccall EO # 0.2 103/ul Normal 0.0-0.7 [facility] Comment on above: Performed By: #### C BC #### [facility] [address] [place] [address] Dr. Nilton Mccall Eosinophils/100 WBC (Bld) 2.8 % Normal 0.9-7.0 [facility] Comment on above: Performed By: #### C BC #### [facility] [address] [place] [address] Dr. Nilton Mccall Erythrocyte distribution width (RBC) [Ratio] 11.8 % Normal 11.0-15.0 [facility] Comment on above: Performed By: #### C BC #### [facility] [address] [place] [address] Dr. Nilton Mccall Hematocrit (Bld) [Volume fraction] 41.8 % Normal 36.0-48.0 [facility] Comment on above: Performed By: #### C BC #### [facility] [address] [place] [address] Dr. Nilton Mccall Hemoglobin (Bld) [Mass/Vol] 14.2 g/dL Normal 12.0-16.0 [facility] Comment on above: Performed By: #### C BC #### [facility] [address] [place] [address] Dr. Nilton Mccall IG # 0.03 10e3/ul Normal 0.00-0.03 [facility] Comment on above: Performed By: #### C BC #### [facility] [address] [place] [address] Dr. Nilton Mccall IG % 0.4 % Normal 0.0-0.5 [facility] Comment on above: Performed By: #### C BC #### [facility] [address] [place] [address] Dr. Nilton Mccall LYMPH # 2.3 103/ul Normal 1.2-3.8 [facility] Comment on above: Performed By: #### C BC #### [facility] [address] [place] [address] Dr. Nilton Mccall Lymphocytes/100 WBC (Bld) 28.8 % Normal 20.5-60.0 [facility] Comment on above: Performed By: #### C BC #### [facility] [address] [place] [address] Dr. Nilton Mccall MANUAL DIFF REQ NO Normal [facility] Comment on above: Performed By: #### C BC #### [facility] [address] [place] [address] Dr. Nilton Mccall MCH (RBC) [Entitic mass] 29.4 pg Normal 26.7-34.0 [facility] Comment on above: Performed By: #### C BC #### [facility] [address] [place] [address] Dr. Nilton Mccall MCHC (RBC) [Mass/Vol] 34.0 g/dL Normal 29.9-35.2 [facility] Comment on above: Performed By: #### C BC #### [facility] [address] [place] [address] Dr. Nilton Mccall MCV (RBC) [Entitic vol] 86.5 fL Normal 81.0-99.0 [facility] Comment on above: Performed By: #### C BC #### [facility] [address] [place] [address] Dr. Nilton Mccall MONO # 0.4 103/ul Normal 0.3-0.8 [facility] Comment on above: Performed By: #### C BC #### [facility] [address] [place] [address] Dr. Nilton Mccall Monocytes/100 WBC (Bld) 4.5 % Normal 1.7-12.0 [facility] Comment on above: Performed By: #### C BC #### [facility] [address] [place] [address] Dr. Nilton Mccall NEUT # 5.0 103/ul Normal 1.4-6.5 [facility] Comment on above: Performed By: #### C BC #### [facility] [address] [place] [address] Dr. Nilton Mccall Neutrophils/100 WBC (Bld) 63.0 % Normal 43.0-75.0 [facility] Comment on above: Performed By: #### C BC #### [facility] [address] [place] [address] Dr. Nilton Mccall Platelet mean volume (Bld) [Entitic vol] 9.5 fL Normal 9.5-13.5 [facility] Comment on above: Performed By: #### C BC #### [facility] [address] [place] [address] Dr. Nilton Mccall PLT 279 103/ul Normal 150-450 [facility] Comment on above: Performed By: #### C BC #### [facility] [address] [place] [address] Dr. Nilton Mccall RBC 4.83 106/ul Normal 4.20-5.40 [facility] Comment on above: Performed By: #### C BC #### [facility] [address] [place] [address] Dr. Nilton Mccall WBC 7.9 103/ul Normal 4.0-11.0 [facility] Comment on above: Performed By: #### C BC #### [facility] [address] [place] [address] Dr. Nilton Mccall GLYCOHEMOGLOBIN A1Con 2022 ADA RECOMMENDATION SEE BELOW Normal [facility] Comment on above: Result Comment: ADA RECOMMENDED LIMIT 4.0 - 6.0 ADA THERAPEUTIC TARGET < 7.0 ACTION SUGGESTED > 7.0 Performed By: #### C MP #### [facility] [address] [place], [place] [address] Dr. Nilton Mccall Glucose [Mass/Vol] 117 mg/dL Normal [facility] Comment on above: Performed By: #### C MP #### [facility] [address] [place] [address] Dr. Nilton Mccall HbA1c (Bld) [Mass fraction] 5.7 % Normal 4.5-6.2 [facility] Comment on above: Performed By: #### C MP #### [facility] [address] [place] [address] Dr. Nilton Mccall VIT B12 AND FOLATEon 023 Cobalamin (Vitamin B12) [Mass/Vol] 539.0 pg/mL Normal 193.0-986. 0 [facility] Comment on above: Performed By: #### C BC #### [facility] [address] [place] [id number] Dr. Nilton Mccall FOLATE 16.40 ng/mL Normal 8.60-58.90 [facility] Comment on above: Performed By: #### C BC #### [facility] [address] [place] [address] Dr. Nilton Mccall VITAMIN D 25 OHon 06-15-2022 VIT D 25-OH 41.2 ng/mL Normal [facility] Comment on above: Performed By: #### C BC #### [facility] [address] [place] [address] Dr. Nilton Mccall VIT D RANGES SEE BELOW Normal [facility] Comment on above: Result Comment: <20 ng/mL Vit D deficient 20 - <30 ng/mL Vit D insufficient 30 - 100 ng/mL Vit D sufficient >100 ng/mL Potential Toxicity Performed By: #### C BC #### [facility] [address] [place] [address] Dr. Nilton Mccall FREE T3on 06-05-2022 FREE T3 2.39 pg/mlL Normal 2.18-3.98 [facility] Comment on above: Performed By: #### T SH, FT3 #### [facility] [address] [place] [address] Dr. Nilton Mccall FREE T4on 06-05-2022 Free T4 [Mass/Vol] 0.89 ng/dL Normal 0.76-1.46 [facility] Comment on above: Performed By: #### C MP #### [facility] [address] [address] [address] Nilton Mccall TSHon 06-05-2022 TSH 1.431 uIU/mL Normal 0.358-3.74 0 [facility] Comment on above: Performed By: #### T SH, FT3 #### [facility] [address] [address] [address] Nilton Mccall PLATELET TRANSMISSION ELECTR ON MICROSCOPIC STUDYon 03-29-2022 PLATELET TEM Performed Normal [facility] Comment on above: Order Comment: Dulce Maria jules Type: BLOOD SPECIMEN Ordering Facility: [facility] Address: [address] [place] [address] Performed By: #### P LTEMS #### [facility] CLIA [id number] [address] [place] [address] PTEM INTERPRETATION SEE NOTE Normal [facility] Comment on above: Order Comment: Dulce Maria jules Type: BLOOD SPECIMEN Ordering Facility: [facility] Address: [address] [place] [address] Result Comment: IMPR ESSION: Platelet transmission electron [...] developed and its performance characteristics determined by [facility] in a manner consistent with CLIA requirements. This test has not been cleared or approved by the U.S. Food and Drug Administration. Test Performed by: [facility] [address] [place] [address] Slide Machine Tender: Shree Norwood M.D. Ph.D.; CLIA# [id number] Performed By: #### P LTEMS #### [facility] CLIA [id number] [address] [place] [address] Specimen Rejectionon 023 Reason for rejection Unable to perform t esting: Specimen age beyond stability limit. Normal [facility] Comment on above: Performed By: #### CELESTINA Cam, CDP #### [facility] [address] [place] [address] [place] [address] Slide Machine Tender: Belén Dale MD Source of sample .BLOOD Normal [facility] Comment on above: Performed By: #### CELESTINA Cam, CDP #### [facility] [address] [place] [address] [place] [address] Slide Machine Tender: Belén Dale MD Test ordered [facility] Comment on above: Performed By: #### CELESTINA Cam, CDP #### [facility] [address] [place] [address] [place] [address] Slide Machine Tender: Belén Dale MD T4, Freeon 02-17-2022 Thyroxine, Free 1.34 ng/dL 0.93 - 1.70 ng/dL [facility] TSH w/reflex to FT4on 2022 Thyroid Stim. Horm. 0.08 uIU/mL Low 0.30-5.00 [facility] Comment on above: Performed By: #### T SHX #### [facility] [address] [place] [address] [place] [address] Slide Machine Tender: Belén Dale MD #### FT4 #### [address] [id number] Slide Machine Tender: Emanuel Reaves MD TSH with Reflexon 02-17-2022 Interpretation and review of laboratory results Abnormal [facility] TSH Qn 0.08 m[IU]/L Low [facility] Thyroxine, Freeon 02-17-2022 Thyroxine, Free 1.34 ng/dL Normal 0.93-1.70 [facility] Comment on above: Performed By: #### T SHX #### [facility] [address] [place] [address] [place] [address] Slide Machine Tender: Belén Dale MD #### FT4 #### [facility] [address] [place], [place] [id number] Slide Machine Tender: Emanuel Reaves MD CBC with Diffon 01-30-2022 Abs. Basophil 0.04 k/uL Normal 0.00-0.20 [facility] Comment on above: Performed By: #### C P, CDP #### [facility] [address] [place] [address] Dr[place], [place] [id number] Slide Machine Tender: Belén Dale MD Abs.Imm.Granulocyte 0.04 k/uL Normal 0.00-0.30 [facility] Comment on above: Performed By: #### C P, CDP #### [address] [place], [place] [id number] Slide Machine Tender: Belén Dale MD Abs.Neutrophil (Seg) 6.83 k/uL Normal 1.50-8.10 [facility] Comment on above: Performed By: #### C P, CDP #### [facility] [address] [place] [address] Dr[place], [place] [phone] Slide Machine Tender: Belén Dale MD Basophils/100 WBC (Bld) 0 % Normal 0-2 [facility] Comment on above: Performed By: #### C P, CDP #### [facility] [address] [place] [address] Dr. [place], [place] 1147983 Slide Machine Tender: Belén Dale MD Eosinophils (Bld) [#/Vol] 0.19 10*3/uL Normal 0.00-0.44 [facility] Comment on above: Performed By: #### C P, CDP #### [facility] [address] [place] [address] [place] [address] Slide Machine Tender: Belén Dale MD Eosinophils/100 WBC (Bld) 2 % Normal 1-4 [facility] Comment on above: Performed By: #### C P, CDP #### [address] [place], [place] [address] Slide Machine Tender: Belén Dale MD Erythrocyte distribution width (RBC) [Ratio] 11.6 % Low 11.8-14.4 [facility] Comment on above: Performed By: #### C P, CDP #### [address] [place], [place] [address] Slide Machine Tender: Belén Dale MD Hematocrit (Bld) [Volume fraction] 46.1 % Normal 36.3-47.1 [facility] Comment on above: Performed By: #### C P, CDP #### [address] [place], [facility]83 Slide Machine Tender: Belén Dale MD Hemoglobin (Bld) [Mass/Vol] 15.9 g/dL High 11.9-15.1 [facility] Comment on above: Performed By: #### C P, CDP #### [address] [place] [address] Slide Machine Tender: Belén Dale MD Immature granulocytes/100 WBC (Bld) 0 % Normal 0 [facility] Comment on above: Performed By: #### C P, CDP #### [address] [place] [address] Slide Machine Tender: Belén Dale MD Lymphocytes (Bld) [#/Vol] 1.67 10*3/uL Normal 1.10-3.70 [facility] Comment on above: Performed By: #### C P, CDP #### [address] [place], [place] 1493783 Slide Machine Tender: Belén Dale MD Lymphocytes/100 WBC (Bld) 18 % Low 24-43 [facility] Comment on above: Performed By: #### C P, CDP #### [address] [place], [place] [address] Slide Machine Tender: Belén Dale MD MCH (RBC) [Entitic mass] 29.8 pg Normal 25.2-33.5 [facility] Comment on above: Performed By: #### C P, CDP #### [address] [place], [facility]83 Slide Machine Tender: Belén Dale MD MCHC (RBC) [Mass/Vol] 34.5 g/dL Normal 28.4-34.8 [facility] Comment on above: Performed By: #### C P, CDP #### [address] [place], [place] [address] Slide Machine Tender: Belén Dale MD MCV (RBC) [Entitic vol] 86.3 fL Normal 82.6-102.9 [facility] Comment on above: Performed By: #### C P, CDP #### [address] [place], [facility]83 Slide Machine Tender: Belén Dale MD Monocytes (Bld) [#/Vol] 0.37 10*3/uL Normal 0.10-1.20 [facility] Comment on above: Performed By: #### C P, CDP #### [address] [place], [place] [address]32[address]83 Slide Machine Tender: Belén Dale MD Monocytes/100 WBC (Bld) 4 % Normal 3-12 [facility] Comment on above: Performed By: #### C P, CDP #### [facility] [address] [place], [place] [phone] Slide Machine Tender: Belén Dale MD Neutrophil (Seg) 76 % High 36-65 [facility] Comment on above: Performed By: #### C P, CDP #### [facility] [address] [place] [address] Slide Machine Tender: Belén Dale MD NRBC Automated 0.0 per 100 WBC Normal 0.0 [facility] Comment on above: Performed By: #### C P, CDP #### [facility] [address] [place], [place] 3931083 Slide Machine Tender: Belén Dale MD Platelet mean volume (Bld) [Entitic vol] 9.4 fL Normal 8.1-13.5 [facility] Comment on above: Performed By: #### C P, CDP #### [address] [place], [place] 4562283 Slide Machine Tender: Belén Dale MD Platelets (Bld) [#/Vol] 248 10*3/uL Normal 138-453 [facility] Comment on above: Performed By: #### C P, CDP #### [address] [place], [place] 5210883 Slide Machine Tender: Belén Dale MD RBC (Bld) [#/Vol] 5.34 10*6/uL High 3.95-5.11 [facility] Comment on above: Performed By: #### C P, CDP #### [address] [place] [address] Slide Machine Tender: Belén Dale MD WBC (Bld) [#/Vol] 9.1 10*3/uL Normal 3.5-11.3 [facility] Comment on above: Performed By: #### C P, CDP #### [address] [place] [address] Slide Machine Tender: Belén Dale MD CT ABDOMEN PELVIS WO [...] Tesfaye Tillman MD 01/30/22 Final result Normal [facility] Comp Metabolic Profon 2021 Albumin [Mass/Vol] 4.7 g/dL Normal 3.5-5.2 [facility] Comment on above: Performed By: #### M Francisca BMPX, CDP #### [facility] [address] [place] [address] [place] [address] Slide Machine Tender: Belén Dale MD Albumin/Glob Ratio 1.5 Normal 1.0-2.5 [facility] Comment on above: Performed By: #### Ian Espinosa BMPX, CDP #### [facility] [address] [place] [address] Slide Machine Tender: Belén Dale MD Alkaline Phos 76 U/L Normal 35-104 [facility] Comment on above: Performed By: #### M Francisca BMPX, CDP #### [facility] [address] [place] [address] Slide Machine Tender: Belén Dale MD ALT [Catalytic activity/Vol] 40 U/L High 5-33 [facility] Comment on above: Performed By: #### M Francisca BMPX, CDP #### [facility] [address] [place] [address] Slide Machine Tender: Belén Dale MD Anion gap [Moles/Vol] 10 mmol/L Normal 9-17 [facility] Comment on above: Performed By: #### M G, BMPX, CDP #### [facility] [address] [place], [place] 5349583 Slide Machine Tender: Belén Dale MD AST [Catalytic activity/Vol] 17 U/L Normal <32 [facility] Comment on above: Performed By: #### M G, BMPX, CDP #### [facility] [address] [place], [place] 4861183 Slide Machine Tender: Belén Dale MD Bilirubin [Mass/Vol] 0.3 mg/dL Normal 0.3-1.2 [facility] Comment on above: Performed By: #### M G, BMPX, CDP #### [facility] [address] [place], [place] 6033483 Slide Machine Tender: Belén Dale MD BUN/CRE Ratio 10 Normal 9-20 [facility] Comment on above: Performed By: #### M G, BMPX, CDP #### [facility] [address] [place], [place] 3011483 Slide Machine Tender: Belén Dale MD Calcium [Mass/Vol] 10.4 mg/dL Normal 8.6-10.4 [facility] Comment on above: Performed By: #### M G, BMPX, CDP #### [facility] [address] [place], [place] [address]3 Slide Machine Tender: Belén Dale MD Chloride [Moles/Vol] 105 mmol/L Normal 98-107 [facility] Comment on above: Performed By: #### M G, BMPX, CDP #### [facility] [address] [place], [place] 2920583 Slide Machine Tender: Belén Dale MD CO2 [Moles/Vol] 25 mmol/L Normal 20-31 [facility] Comment on above: Performed By: #### M G, BMPX, CDP #### [facility] [address] [place], [place] 2374983 Slide Machine Tender: Belén Dale MD Creatinine [Mass/Vol] 0.89 mg/dL Normal 0.50-0.90 [facility] Comment on above: Performed By: #### CELESTINA Cam, CDP #### [facility] [address] [place] [address] Slide Machine Tender: Belén Dale MD GFR/1.73 sq M.predicted among non-blacks MDRD (S/P/Bld) [Vol rate/Area] mL/min/{1.73_m2} Normal >60 [facility] Comment on above: Result Comment: Effective Nov [...] Performed By: #### CELESTINA Cam, CDP #### [facility] [address] [place] [address] [place] [address] Slide Machine Tender: Belén Dale MD Glucose [Mass/Vol] 125 mg/dL High 70-99 [facility] Comment on above: Performed By: #### CELESTINA Cam, CDP #### [address] [place] [address] Slide Machine Tender: Belén Dale MD Potassium [Moles/Vol] 4.0 mmol/L Normal 3.7-5.3 [facility] Comment on above: Performed By: #### CELESTINA Cam, CDP #### [facility] [address] [place] [address] Slide Machine Tender: Belén Dale MD Protein [Mass/Vol] 7.9 g/dL Normal 6.4-8.3 [facility] Comment on above: Performed By: #### CELESTINA Cam, CDP #### [facility] [address] [place], [place] 4231283 Slide Machine Tender: Belén Dale MD Sodium [Moles/Vol] 140 mmol/L Normal 135-144 [facility] Comment on above: Performed By: #### M G, BMPX, CDP #### [facility] [address] [place], [place] 2149483 Slide Machine Tender: Belén Dale MD Urea nitrogen [Mass/Vol] 9 mg/dL Normal 6-20 [facility] Comment on above: Performed By: #### M G, BMPX, CDP #### [facility] [address] [place], [place] 7815583 Slide Machine Tender: Belén Dale MD UA w/Reflex Cultureon 2021 Bilirubin, SemiQt,Ur Negative Normal NEG [facility] Comment on above: Performed By: #### Ian Espinosa BMPX, CDP #### [address] [place], [place] 8453683 Slide Machine Tender: Belén Dale MD Blood, Urine Negative Normal NEG [facility] Comment on above: Performed By: #### Ian Espinosa BMPX, CDP #### [address] [place], [place] 7769483 Slide Machine Tender: Belén Dale MD Clarity (U) Clear Normal CLEAR [facility] Comment on above: Performed By: #### M Francisca, BMPX, CDP #### [facility] [address] [place], [place] 1210483 Slide Machine Tender: Belén Dale MD Color (U) Yellow Normal YEL [facility] Comment on above: Performed By: #### M Francisca, BMPX, CDP #### [facility] [address] [place], [place] 35[address]83 Slide Machine Tender: Belén Dale MD Glucose Ql (U) Negative Normal NEG [facility] Comment on above: Performed By: #### M G, BMPX, CDP #### [facility] [address] [place] [address] Dr. [place], [place] 2491383 Slide Machine Tender: Belén Dale MD Ketones Ql (U) Negative Normal NEG [facility] Comment on above: Performed By: #### M G, BMPX, CDP #### [address] [place], [place] 8082683 Slide Machine Tender: Belén Dale MD Leukocyte esterase Test strip Ql (U) Negative Normal NEG [facility] Comment on above: Performed By: #### M G, BMPX, CDP #### [address] [place], [place] 3951883 Slide Machine Tender: Belén Dale MD Nitrite,Ur Negative Normal NEG [facility] Comment on above: Performed By: #### M G, BMPX, CDP #### [address] [place], [place] 1841783 Slide Machine Tender: Belén Dale MD PH,Ur 6.0 Normal 5.0-9.0 [facility] Comment on above: Performed By: #### Ian Espinosa, BMPX, CDP #### [address] [place], [place] 6368183 Slide Machine Tender: Belén Dale MD Protein Ql (U) Negative Normal NEG [facility] Comment on above: Performed By: #### M G, BMPX, CDP #### [facility] [address] [place] [address] Dr. [place], [place] 5031283 Slide Machine Tender: Belén Dale MD Spec. Temple,Ur >1.030 High 1.010-1.02 0 [facility] Comment on above: Performed By: #### M G, BMPX, CDP #### [address] [place], [place] 2149783 Slide Machine Tender: Belén Dale MD Urobilinogen,Ur Normal Normal NORM [facility] Comment on above: Performed By: #### Ian Espinosa BMPX, CDP #### [facility] [address] [place], [place] 0579083 Slide Machine Tender: Belén Dale MD Urinalysis,Microon 2 Epithelial cells LM Ql (Urine sed) 2 TO 5 Normal 0-25 [facility] Comment on above: Performed By: #### Ian Espinosa BMPX, CDP #### [facility] [address] [place], [place] 0523883 Slide Machine Tender: Belén Dale MD Mucus Strands 2+ Abnormal NONE [facility] Comment on above: Performed By: #### Ian Espinosa BMPX, CDP #### [facility] [address] [place], [place] 2910483 Slide Machine Tender: Belén Dale MD Urine RBC's 0 TO 2 Normal 0-2 [facility] Comment on above: Performed By: #### Ian Espinosa BMPX, CDP #### [facility] [address] [place], [place] 8440683 Slide Machine Tender: Belén Dale MD Urine WBC's 0 TO 2 Normal 0-5 [facility] Comment on above: Performed By: #### Ian Espinosa BMPX, CDP #### [facility] [address] [place], [place] 7692583 Slide Machine Tender: Belén Dale MD Hemoglobin A1Con 01-10-2022 Glucose [Mass/Vol] 117 mg/dL Normal [facility] Comment on above: Result Comment: The ADA and AACC recommend providing the estimated average glucose result to permit better patient understanding of their HBA1c result. Performed By: #### Ian Espinosa BMPX, CDP #### [facility] [address] [place], [place] 6124983 Slide Machine Tender: Belén Dale MD HbA1c (Bld) [Mass fraction] 5.7 % Normal 4.0-6.0 [facility] Comment on above: Performed By: #### YANIRA CamX, CDP #### [facility] [address] [place] [address] Slide Machine Tender: Belén Dale MD CBC with Diffon 01-09-2022 Abs. Basophil <0.03 Normal 0.00-0.20 [facility] Comment on above: Performed By: #### M G, BMPX, CDP #### [facility] [address] [place] [address] Slide Machine Tender: Belén Dale MD Abs. Eosinophil <0.03 Normal 0.00-0.44 [facility] Comment on above: Performed By: #### M Francisca, BMPX, CDP #### [address] [place] [address] Slide Machine Tender: Belén Dale MD Abs.Imm.Granulocyte 0.09 k/uL Normal 0.00-0.30 [facility] Comment on above: Performed By: #### M Francisca, BMPX, CDP #### [address] [place], [place] 0543683 Slide Machine Tender: Belén Dale MD Abs.Neutrophil (Seg) 7.77 k/uL Normal 1.50-8.10 [facility] Comment on above: Performed By: #### M G, BMPX, CDP #### [facility] [address] [place] [address] [place] [address] Slide Machine Tender: Belén Dale MD Basophils/100 WBC (Bld) 0 % Normal 0-2 [facility] Comment on above: Performed By: #### M G, BMPX, CDP #### [address] [place], [place] 2013983 Slide Machine Tender: Belén Dale MD Eosinophils/100 WBC (Bld) 0 % Low 1-4 [facility] Comment on above: Performed By: #### M G, BMPX, CDP #### [facility] [address] [place], [place] 2582083 Slide Machine Tender: Belén Dale MD Erythrocyte distribution width (RBC) [Ratio] 12.0 % Normal 11.8-14.4 [facility] Comment on above: Performed By: #### M G, BMPX, CDP #### [address] [place], [place] 9114983 Slide Machine Tender: Belén Dale MD Hematocrit (Bld) [Volume fraction] 37.9 % Normal 36.3-47.1 [facility] Comment on above: Performed By: #### M Francisca, BMPX, CDP #### [address] [place], [place] 3747183 Slide Machine Tender: Belén Dale MD Hemoglobin (Bld) [Mass/Vol] 12.9 g/dL Normal 11.9-15.1 [facility] Comment on above: Performed By: #### Ian Espinosa, BMPX, CDP #### [address] [place], [place] [address]177083 Slide Machine Tender: Belén Dale MD Immature granulocytes/100 WBC (Bld) 1 % High 0 [facility] Comment on above: Performed By: #### M G, BMPX, CDP #### [address] [place], [place] 328[address] Slide Machine Tender: Belén Dale MD Lymphocytes (Bld) [#/Vol] 1.35 10*3/uL Normal 1.10-3.70 [facility] Comment on above: Performed By: #### M G, BMPX, CDP #### [address] [place], [place] 9017183 Slide Machine Tender: Belén Dale MD Lymphocytes/100 WBC (Bld) 14 % Low 24-43 [facility] Comment on above: Performed By: #### M G, BMPX, CDP #### [address] [place] [address] Slide Machine Tender: Belén Dale MD MCH (RBC) [Entitic mass] 29.7 pg Normal 25.2-33.5 [facility] Comment on above: Performed By: #### M G, BMPX, CDP #### [facility] [address] [place], [facility]83 Slide Machine Tender: Belén Dale MD MCHC (RBC) [Mass/Vol] 34.0 g/dL Normal 28.4-34.8 [facility] Comment on above: Performed By: #### M G, BMPX, CDP #### [address] [place] [address] Slide Machine Tender: Belén Dale MD MCV (RBC) [Entitic vol] 87.1 fL Normal 82.6-102.9 [facility] Comment on above: Performed By: #### Ian Espinosa, BMPX, CDP #### [address] [place], [facility] Slide Machine Tender: Belén Dale MD Monocytes (Bld) [#/Vol] 0.40 10*3/uL Normal 0.10-1.20 [facility] Comment on above: Performed By: #### M G, BMPX, CDP #### [address] [place], [facility]83 Slide Machine Tender: Belén Dale MD Monocytes/100 WBC (Bld) 4 % Normal 3-12 [facility] Comment on above: Performed By: #### M G, BMPX, CDP #### [facility] [address] [place], [place] [address]68383 Slide Machine Tender: Belén Dale MD Neutrophil (Seg) 81 % High 36-65 [facility] Comment on above: Performed By: #### M G, BMPX, CDP #### [facility] [address] [place], [facility] Slide Machine Tender: Belén Dale MD NRBC Automated 0.0 per 100 WBC Normal 0.0 [facility] Comment on above: Performed By: #### Ian Espinosa BMPX, CDP #### [facility] [address] [place], [place] [address]64[address] Slide Machine Tender: Belén Dale MD Platelet mean volume (Bld) [Entitic vol] 9.6 fL Normal 8.1-13.5 [facility] Comment on above: Performed By: #### Ian Espinosa BMPX, CDP #### [address] [place], [place] [id number] Slide Machine Tender: Belén Dale MD Platelets (Bld) [#/Vol] 238 10*3/uL Normal 138-453 [facility] Comment on above: Performed By: #### Ian Espinosa BMPX, CDP #### [address] [place], [place] [phone] Slide Machine Tender: Belén Dale MD RBC (Bld) [#/Vol] 4.35 10*6/uL Normal 3.95-5.11 [facility] Comment on above: Performed By: #### Ian Espinosa BMPX, CDP #### [address] [place], [place] 1760583 Slide Machine Tender: Belén Dale MD WBC (Bld) [#/Vol] 9.6 10*3/uL Normal 3.5-11.3 [facility] Comment on above: Performed By: #### Ian Espinosa BMPX, CDP #### [address] [place], [place] [id number] Slide Machine Tender: Belén Dale MD Comp Metabolic Pr/rfx MGon 1 03-12-2021 Albumin [Mass/Vol] 4.2 g/dL Normal 3.5-5.2 [facility] Comment on above: Performed By: #### Ian Espinosa BMPX, CDP #### [address] [place], [place] [phone] Slide Machine Tender: Belén Dale MD Albumin/Glob Ratio 1.7 Normal 1.0-2.5 [facility] Comment on above: Performed By: #### M Francisca, BMPX, CDP #### [facility] [address] [place], [place] 1331883 Slide Machine Tender: Belén Dale MD Alkaline Phos 70 U/L Normal 35-104 [facility] Comment on above: Performed By: #### M G, BMPX, CDP #### [facility] [address] [place], [place] [phone] Slide Machine Tender: Belén Dale MD ALT [Catalytic activity/Vol] 24 U/L Normal 5-33 [facility] Comment on above: Performed By: #### Ian Espinosa, BMPX, CDP #### [facility] [address] [place], [place] 0666383 Slide Machine Tender: Belén Dale MD Anion gap [Moles/Vol] 13 mmol/L Normal 9-17 [facility] Comment on above: Performed By: #### Ian Espinosa BMPX, CDP #### [facility] [address] [place], [place] 6687083 Slide Machine Tender: Belén Dale MD AST [Catalytic activity/Vol] 15 U/L Normal <32 [facility] Comment on above: Performed By: #### M Francisca, BMPX, CDP #### [facility] [address] [place], [place] 5041983 Slide Machine Tender: Belén Dale MD Bilirubin [Mass/Vol] 0.3 mg/dL Normal 0.3-1.2 [facility] Comment on above: Performed By: #### M G, BMPX, CDP #### [facility] [address] [place], [place] [phone] Slide Machine Tender: Belén Dale MD BUN/CRE Ratio 16 Normal 9-20 [facility] Comment on above: Performed By: #### M G, BMPX, CDP #### [facility] [address] [place], [place] 7098583 Slide Machine Tender: Belén Dale MD Calcium [Mass/Vol] 9.0 mg/dL Normal 8.6-10.4 [facility] Comment on above: Performed By: #### M G, BMPX, CDP #### [facility] [address] [place], [place] 6204383 Slide Machine Tender: Belén Dale MD Chloride [Moles/Vol] 105 mmol/L Normal 98-107 [facility] Comment on above: Performed By: #### M G, BMPX, CDP #### [facility] [address] [place], [place] 3551383 Slide Machine Tender: Belén Dale MD CO2 [Moles/Vol] 21 mmol/L Normal 20-31 [facility] Comment on above: Performed By: #### M Francisca, BMPX, CDP #### [facility] [address] [place], [place] 0541783 Slide Machine Tender: Belén Dale MD Creatinine [Mass/Vol] 0.83 mg/dL Normal 0.50-0.90 [facility] Comment on above: Performed By: #### M Francisca, BMPX, CDP #### [facility] [address] [place], [place] [phone] Slide Machine Tender: Belén Dale MD GFR/1.73 sq M.predicted among non-blacks MDRD (S/P/Bld) [Vol rate/Area] mL/min/{1.73_m2} Normal >60 [facility] Comment on above: Result Comment: Effective Nov [...] Performed By: #### CELESTINA Cam, CDP #### [facility] [address] [place], [place] 7847383 Slide Machine Tender: Belén Dale MD Glucose [Mass/Vol] 183 mg/dL High 70-99 [facility] Comment on above: Performed By: #### YANIRA CamX, CDP #### [facility] [address] [place], [place] 0215783 Slide Machine Tender: Belén Dale MD Potassium [Moles/Vol] 3.7 mmol/L Normal 3.7-5.3 [facility] Comment on above: Performed By: #### CELESTINA Cam, CDP #### [address] [place], [place] 7899183 Slide Machine Tender: Belén Dale MD Protein [Mass/Vol] 6.7 g/dL Normal 6.4-8.3 [facility] Comment on above: Performed By: #### CELESTINA Cam, CDP #### [address] [place], [place] 7490783 Slide Machine Tender: Belén Dale MD Sodium [Moles/Vol] 139 mmol/L Normal 135-144 [facility] Comment on above: Performed By: #### CELESTINA Cam, CDP #### [facility] [address] [place], [place] [phone] Slide Machine Tender: Belén Dale MD Urea nitrogen [Mass/Vol] 13 mg/dL Normal 6-20 [facility] Comment on above: Performed By: #### YANIRA CamX, CDP #### [facility] [address] [place], [place] [phone] Slide Machine Tender: Belén Dale MD Resp Viral Panelon 2 Adenovirus Detected Abnormal NOTDET [facility] Comment on above: Performed By: #### M G, BMPX, CDP #### [facility] [address] [place] [address] [place] [address] Slide Machine Tender: MD Cecil Chand.parapertussis Not detected Normal [facility] Comment on above: Performed By: #### M G, BMPX, CDP #### [facility] [address] [place] [address] [place] [address] Slide Machine Tender: Belén Dale MD Bordetella pertussis Not detected Normal [facility] Comment on above: Performed By: #### M G, BMPX, CDP #### [address] [place] [address] Slide Machine Tender: Belén Dale MD Chlamyd.pneumoniae Not detected [facility] Comment on above: Performed By: #### M G, BMPX, CDP #### [address] [place] [address] Slide Machine Tender: Belén Dale MD Coronavirus 229E Not detected [facility] Comment on above: Performed By: #### M G, BMPX, CDP #### [address] [place] [address] Slide Machine Tender: Belén Dale MD Coronavirus HKU1 Not detected Normal [facility] Comment on above: Performed By: #### M G, BMPX, CDP #### [facility] [address] [place] [address] [place] [address] Slide Machine Tender: Belén Dale MD Coronavirus NL63 Not detected [facility] Comment on above: Performed By: #### M G, BMPX, CDP #### [facility] [address] [place] [address] [place] [address] Slide Machine Tender: Belén Dale MD Coronavirus OC43 Not detected Normal [facility] Comment on above: Performed By: #### M G, BMPX, CDP #### [facility] [address] [place] [address] Slide Machine Tender: Belén Dale MD Human Metapneumo Not detected [facility] Comment on above: Performed By: #### M G, BMPX, CDP #### [facility] [address] [place] [address] Slide Machine Tender: Belén Dale MD Influenza A Not detected [facility] Comment on above: Performed By: #### M G, BMPX, CDP #### [address] [place] [address] Slide Machine Tender: Belén Dale MD Influenza B Not detected [facility] Comment on above: Performed By: #### M G, BMPX, CDP #### [facility] [address] [place] [address] Dr[place], [place] [phone] Slide Machine Tender: Belén Dale MD Mycoplas.pneumoniae Not detected [facility] Comment on above: Result Comment: Perf ormed by multiplexed nucleic acid assay. Performed By: #### M G, BMPX, CDP #### [address] [place], [place] 4277683 Slide Machine Tender: Belén Dale MD Parainfluenza 1 Not detected Normal [facility] Comment on above: Performed By: #### M G, BMPX, CDP #### [facility] [address] [place] [address] [place] [address] Slide Machine Tender: Belén Dale MD Parainfluenza 2 Not detected [facility] Comment on above: Performed By: #### M G, BMPX, CDP #### [facility] [address] [place], [place] 1965183 Slide Machine Tender: Belén Dale MD Parainfluenza 3 Not detected Normal [facility] Comment on above: Performed By: #### Ian Espinosa BMPX, CDP #### [facility] [address] [place], [place] 4377083 Slide Machine Tender: Belén Dale MD Parainfluenza 4 Not detected Normal [facility] Comment on above: Performed By: #### M Francisca, BMPX, CDP #### [facility] [address] [place], [place] 6846883 Slide Machine Tender: Belén Dale MD Resp Syncytial Virus Detected Abnormal [facility] Comment on above: Performed By: #### Ian Espinosa BMPX, CDP #### [facility] [address] [place] [address] Dr[address] [place], [place] 1172183 Slide Machine Tender: Belén Dale MD Rhino/Enterovirus Not detected Normal [facility] Comment on above: Performed By: #### Ian Espinosa BMPX, CDP #### [address] [place], [place] 6827883 Slide Machine Tender: Belén Dale MD SARS-CoV-2 (COVID-19) RNA CHRISTI+probe Ql (Unsp spec) Not detected Normal [facility] Comment on above: Performed By: #### Ian Espinosa BMPX, CDP #### [facility] [address] [place], [place] 7207583 Slide Machine Tender: Belén Dale MD Basic Metabolic Profon 01-08 Anion gap [Moles/Vol] 16 mmol/L Normal - [facility] Comment on above: Performed By: #### M Francisca BMPX, CDP #### [facility] [address] [place] [address] Slide Machine Tender: Belén Dale MD BUN/CRE Ratio 12 Normal - [facility] Comment on above: Performed By: #### M Francisca, BMPX, CDP #### [facility] [address] [place], [place] 1999183 Slide Machine Tender: Belén Dale MD Calcium [Mass/Vol] 9.5 mg/dL Normal 8.6-10.4 [facility] Comment on above: Performed By: #### M G, BMPX, CDP #### [facility] [address] [place], [place] 9964983 Slide Machine Tender: Belén Dale MD Chloride [Moles/Vol] 104 mmol/L Normal 98-107 [facility] Comment on above: Performed By: #### Ian Espinosa, BMPX, CDP #### [facility] [address] [place], [place] 2530583 Slide Machine Tender: Belén Dale MD CO2 [Moles/Vol] 20 mmol/L Normal 20-31 [facility] Comment on above: Performed By: #### Ian Espinosa, BMPX, CDP #### [facility] [address] [place], [place] 0539783 Slide Machine Tender: Belén Dale MD Creatinine [Mass/Vol] 0.92 mg/dL High 0.50-0.90 [facility] Comment on above: Performed By: #### Ian Espinosa, BMPX, CDP #### [facility] [address] [place], [place] 481[address] Slide Machine Tender: Belén Dale MD GFR/1.73 sq M.predicted among non-blacks MDRD (S/P/Bld) [Vol rate/Area] mL/min/{1.73_m2} Normal >60 [facility] Comment on above: Result Comment: Effective Nov [...] By: #### Ian Espinosa BMPX, CDP #### [facility] [address] [place], [place] 6815183 Slide Machine Tender: Belén Dale MD Glucose [Mass/Vol] 187 mg/dL High 70-99 [facility] Comment on above: Performed By: #### Ian Espinosa BMPX, CDP #### [facility] [address] [place] [address] Slide Machine Tender: Belén Dale MD Potassium [Moles/Vol] 3.9 mmol/L Normal 3.7-5.3 [facility] Comment on above: Performed By: #### Ian Espinosa BMPX, CDP #### [facility] [address] [place] [address] Slide Machine Tender: Belén Dale MD Sodium [Moles/Vol] 140 mmol/L Normal 135-144 [facility] Comment on above: Performed By: #### Ian Espinosa BMPX, CDP #### [facility] [address] [place], [place] 8173883 Slide Machine Tender: Belén Dale MD Urea nitrogen [Mass/Vol] 11 mg/dL Normal 6-20 [facility] Comment on above: Performed By: #### Ian Espinosa BMPX, CDP #### [facility] [address] [place], [place] 655[address]83 Slide Machine Tender: Belén Dale MD Brain Natri. Peptideon 01-08 Natriuretic peptide B (Bld) [Mass/Vol] 485 pg/mL High <300 [facility] Comment on above: Result Comment: An age-independent cutoff point of 300 pg/ml has a 98% negative predictive value excluding acute heart failure. Performed By: #### Ian Espinosa, BMPX, CDP #### [facility] [address] [place], [place] [phone] Slide Machine Tender: Belén Dale MD CBC with Diffon 01-08-2022 Abs. Basophil <0.03 Normal 0.00-0.20 [facility] Comment on above: Performed By: #### YANIRA CamX, CDP #### [facility] [address] [place] [address] Slide Machine Tender: Belén Dale MD Abs. Eosinophil <0.03 Normal 0.00-0.44 [facility] Comment on above: Performed By: #### Ian Espinosa BMPX, CDP #### [facility] [address] [place] [address] Slide Machine Tender: Belén Dale MD Abs.Imm.Granulocyte 0.06 k/uL Normal 0.00-0.30 [facility] Comment on above: Performed By: #### YANIRA CamX, CDP #### [address] [place], [facility]83 Slide Machine Tender: Belén Dale MD Abs.Neutrophil (Seg) 9.46 k/uL High 1.50-8.10 [facility] Comment on above: Performed By: #### CELESTINA Cam, CDP #### [address] [place] [address] Slide Machine Tender: Belén Dale MD Basophils/100 WBC (Bld) 0 % Normal 0-2 [facility] Comment on above: Performed By: #### CELESTINA Cam, CDP #### [facility] [address] [place], [place] 2230983 Slide Machine Tender: Belén Dale MD Eosinophils/100 WBC (Bld) 0 % Low 1-4 [facility] Comment on above: Performed By: #### YANIRA CamX, CDP #### [facility] [address] [place], [place] 5467083 Slide Machine Tender: Belén Dale MD Erythrocyte distribution width (RBC) [Ratio] 11.9 % Normal 11.8-14.4 [facility] Comment on above: Performed By: #### Ian Espinosa BMPX, CDP #### [facility] [address] [place] [address] Slide Machine Tender: Belén Dale MD Hematocrit (Bld) [Volume fraction] 43.8 % Normal 36.3-47.1 [facility] Comment on above: Performed By: #### Ian Espinosa BMPX, CDP #### [address] [place] [address]83 Slide Machine Tender: Belén Dale MD Hemoglobin (Bld) [Mass/Vol] 14.6 g/dL Normal 11.9-15.1 [facility] Comment on above: Performed By: #### Ian Espinosa BMPX, CDP #### [address] [place] [address]83 Slide Machine Tender: Belén Dale MD Immature granulocytes/100 WBC (Bld) 1 % High 0 [facility] Comment on above: Performed By: #### Ian Espinosa BMPX, CDP #### [address] [place], [facility]83 Slide Machine Tender: Belén Dale MD Lymphocytes (Bld) [#/Vol] 0.78 10*3/uL Low 1.10-3.70 [facility] Comment on above: Performed By: #### Ian Espinosa BMPX, CDP #### [address] [place], [facility]83 Slide Machine Tender: Belén Dale MD Lymphocytes/100 WBC (Bld) 7 % Low 24-43 [facility] Comment on above: Performed By: #### Ian Espinosa BMPX, CDP #### [address] [place] [address] Slide Machine Tender: Belén Dale MD MCH (RBC) [Entitic mass] 29.6 pg Normal 25.2-33.5 [facility] Comment on above: Performed By: #### Ian Espinosa BMPX, CDP #### [address] [place], [place] 8622483 Slide Machine Tender: Belén Dale MD MCHC (RBC) [Mass/Vol] 33.3 g/dL Normal 28.4-34.8 [facility] Comment on above: Performed By: #### Ian Espinosa BMPX, CDP #### [address] [place], [facility]83 Slide Machine Tender: Belén Dale MD MCV (RBC) [Entitic vol] 88.7 fL Normal 82.6-102.9 [facility] Comment on above: Performed By: #### Ian Espinosa BMPX, CDP #### [address] [place], [facility]83 Slide Machine Tender: Belén Dale MD Monocytes (Bld) [#/Vol] 0.19 10*3/uL Normal 0.10-1.20 [facility] Comment on above: Performed By: #### Ian Espinosa BMPX, CDP #### [address] [place], [facility]83 Slide Machine Tender: Belén Dale MD Monocytes/100 WBC (Bld) 2 % Low 3-12 [facility] Comment on above: Performed By: #### Ian Espinosa BMPX, CDP #### [address] [place], [facility]83 Slide Machine Tender: Belén Dale MD Neutrophil (Seg) 90 % High 36-65 [facility] Comment on above: Performed By: #### Ian Espinosa BMPX, CDP #### [address] [place] [address] Slide Machine Tender: Belén Dale MD NRBC Automated 0.0 per 100 WBC Normal 0.0 [facility] Comment on above: Performed By: #### Ian Espinosa BMPX, CDP #### [facility] [address] [place] [address] Slide Machine Tender: Belén Dale MD Platelet mean volume (Bld) [Entitic vol] 9.6 fL Normal 8.1-13.5 [facility] Comment on above: Performed By: #### M G, BMPX, CDP #### [facility] [address] [place], [facility]83 Slide Machine Tender: Belén Dale MD Platelets (Bld) [#/Vol] 254 10*3/uL Normal 138-453 [facility] Comment on above: Performed By: #### M Francisca, BMPX, CDP #### [address] [place] [address] Slide Machine Tender: Belén Dale MD RBC (Bld) [#/Vol] 4.94 10*6/uL Normal 3.95-5.11 [facility] Comment on above: Performed By: #### M Francisca, BMPX, CDP #### [address] [place], [facility]83 Slide Machine Tender: Belén Dale MD WBC (Bld) [#/Vol] 10.5 10*3/uL Normal 3.5-11.3 [facility] Comment on above: Performed By: #### M Francisca, BMPX, CDP #### [address] [place], [facility]83 Slide Machine Tender: Belén Dale MD CT SOFT TISSUE NECK [...] Justin Hatfield MD 01/08/22 Final result Normal [facility] D-Dimer Teston 01-08-2022 D-Dimer Test 0.46 mg/L FEU Normal 0.00-0.59 [facility] Comment on above: Result Comment: When [...] Performed By: #### CELESTINA Cam, CDP #### [facility] [address] [place] [address] Slide Machine Tender: Belén Dale MD Resp Viral Panelon 2 Source: .NASOPHARYNGEAL SWAB Normal [facility] Comment on above: Performed By: #### CELESTINA Cam, CDP #### [facility] [address] [place] [address] Slide Machine Tender: Belén Dale MD TSH w/reflex to FT4on 2021 Thyroid Stim. Horm. 0.07 uIU/mL Low 0.30-5.00 [facility] Comment on above: Performed By: #### CELESTINA Cam, CDP #### [address] [place] [address]83 Slide Machine Tender: Belén Dale MD Thyroxine, Freeon 01-08-2022 Thyroxine, Free 1.35 ng/dL Normal 0.93-1.70 [facility] Comment on above: Performed By: #### CELESTINA Cam, CDP #### [facility] [address] [place] [address] Dr. [place] [address]83 Slide Machine Tender: Belén Dale MD Troponinon 01-08-2022 Troponin, High Sens <6 Normal 0-14 [facility] Comment on above: Result Comment: High Sensitivity Troponin values cannot be compared with other Troponin methodologies. Patients with high levels of Biotin oral intake (i.e >5mg/day) may have falsely decreased Troponin levels. Samples collected within 8 hours of biotin intake may require additional information for diagnosis. Performed By: #### CELESTINA Cam, CDP #### [facility] [address] [place] [address] [place]. [place] [phone] Slide Machine Tender: Belén Dale MD Venous Blood Gaseson 022 Body Temp. 37.0 [facility] Comment on above: Performed By: #### M Francisca, BMPX, CDP #### [facility] [address] [place], [place] [phone] Slide Machine Tender: Belén Dale MD HCO3 (Bld) [Moles/Vol] 15.8 mmol/L Low 24.0-30.0 [facility] Comment on above: Performed By: #### M Francisca, BMPX, CDP #### [facility] [address] [place] [address] [place] [place], [place] 3302483 Slide Machine Tender: Belén Dale MD Negative Base Excess 5.2 mmol/L High 0.0-2.0 [facility] Comment on above: Performed By: #### Ian Espinosa BMPX, CDP #### [facility] [address] [place] [address] [place], [place] 6880583 Slide Machine Tender: Belén Dale MD O2 Device/Flow/% ROOM AIR [facility] Comment on above: Performed By: #### Ian Espinosa BMPX, CDP #### [facility] [address] [place] [address] [place], [place] 6854283 Slide Machine Tender: Belén Dale MD Oxygen saturation in Blood 94.9 % High 60.0-85.0 [facility] Comment on above: Performed By: #### M Francisca BMPX, CDP #### [facility] [address] [place], [place] 7424683 Slide Machine Tender: Belén Dale MD pCO2 21.7 mm Hg Low 39-55 [facility] Comment on above: Performed By: #### M G, BMPX, CDP #### [facility] [address] [place], [place] 2261083 Slide Machine Tender: Belén Dale MD pH (Bld) 7.481 [pH] High 7.32-7.42 [facility] Comment on above: Performed By: #### M Francisca BMPX, CDP #### [facility] [address] [place] [address] Slide Machine Tender: Belén Dale MD pO2 66.6 mm Hg High 30.0-50.0 [facility] Comment on above: Performed By: #### M Francisca BMPX, CDP #### [facility] [address] [place], [place] 5035483 Slide Machine Tender: Belén Dale MD Pt. Position [facility] Normal [facility] Comment on above: Performed By: #### M Francisca BMPX, CDP #### [facility] [address] [place] [address] Slide Machine Tender: Belén Dale MD Respiratory rate 31 /min Normal [facility] Comment on above: Performed By: #### M Francisca BMPX, CDP #### [facility] [address] [place] [address] Slide Machine Tender: Belén Dale MD XR CHEST PORTABLEon 01-09-20 [...] Antelmo Ramírez MD 01/08/22 Final result Normal [facility] Basic Metab w/rfx MGon 01-07 Potassium [Moles/Vol] 3.1 mmol/L Low 3.7-5.3 [facility] Comment on above: Performed By: #### M G BMPX, CDP #### [facility] [address] [place] [address] Slide Machine Tender: Belén Dale MD Anion gap [Moles/Vol] 14 mmol/L Normal 9-17 [facility] Comment on above: Performed By: #### Ian Espinosa, BMPX, CDP #### [facility] [address] [address] [place], [place] [id number] Slide Machine Tender: Belén Dale MD BUN/CRE Ratio 9 Normal 9-20 [facility] Comment on above: Performed By: #### Ian Espinosa, BMPX, CDP #### [facility] [address] [place], [place] [id number] Slide Machine Tender: Belén Dale MD Calcium [Mass/Vol] 9.2 mg/dL Normal 8.6-10.4 [facility] Comment on above: Performed By: #### Ian Espinosa BMPX, CDP #### [facility] [address] [place], [place] [id number] Slide Machine Tender: Belén Dale MD Chloride [Moles/Vol] 103 mmol/L Normal 98-107 [facility] Comment on above: Performed By: #### Ian Espinosa BMPX, CDP #### [facility] [address] [place] [address] Slide Machine Tender: Belén Dale MD CO2 [Moles/Vol] 20 mmol/L Normal 20-31 [facility] Comment on above: Performed By: #### Ian Espinosa BMPX, CDP #### [facility] [address] [place], [place] [id number] Slide Machine Tender: Belén Dale MD Creatinine [Mass/Vol] 0.95 mg/dL High 0.50-0.90 [facility] Comment on above: Performed By: #### Ian Espinosa BMPX, CDP #### [facility] [address] [place] [address] Slide Machine Tender: Belén Dale MD GFR/1.73 sq M.predicted among non-blacks MDRD (S/P/Bld) [Vol rate/Area] mL/min/{1.73_m2} Normal >60 [facility] Comment on above: Result Comment: Effective Nov [...] Performed By: #### CELESTINA Cam, CDP #### [facility] [address] [place] [address] Slide Machine Tender: Belén Dale MD Glucose [Mass/Vol] 180 mg/dL High 70-99 [facility] Comment on above: Performed By: #### CELESTINA Cam, CDP #### [facility] [address] [place] [address] Slide Machine Tender: Belén Dale MD Sodium [Moles/Vol] 137 mmol/L Normal 135-144 [facility] Comment on above: Performed By: #### CELESTINA Cam, CDP #### [address] [place], [place] [id number] Slide Machine Tender: Belén Dale MD Urea nitrogen [Mass/Vol] 9 mg/dL Normal 6-20 [facility] Comment on above: Performed By: #### CELESTINA Cam, CDP #### [facility] [address] [place] [address] [place] [address] Slide Machine Tender: Belén Dale MD CBC with Diffon 01-07-2022 Abs. Basophil <0.03 Normal 0.00-0.20 [facility] Comment on above: Performed By: #### CELESTINA Cam, CDP #### [facility] [address] [place] [address] Slide Machine Tender: Belén Dale MD Abs.Imm.Granulocyte <0.03 Normal 0.00-0.30 [facility] Comment on above: Performed By: #### CELESTINA Cam, CDP #### [address] [place] [id number] Slide Machine Tender: Belén Dale MD Abs.Neutrophil (Seg) 3.22 k/uL Normal 1.50-8.10 [facility] Comment on above: Performed By: #### YANIRA CamX, CDP #### [address] [place], [facility] Slide Machine Tender: Belén Dale MD Basophils/100 WBC (Bld) 0 % Normal 0-2 [facility] Comment on above: Performed By: #### YANIRA CamX, CDP #### [address] [place] [id number] Slide Machine Tender: Belén Dale MD Eosinophils (Bld) [#/Vol] 0.12 10*3/uL Normal 0.00-0.44 [facility] Comment on above: Performed By: #### CELESTINA Cam, CDP #### [address] [place], [facility] Slide Machine Tender: Belén Dale MD Eosinophils/100 WBC (Bld) 3 % Normal 1-4 [facility] Comment on above: Performed By: #### CELESTINA Cam, CDP #### [address] [place], [facility]83 Slide Machine Tender: Belén Dale MD Erythrocyte distribution width (RBC) [Ratio] 11.7 % Low 11.8-14.4 [facility] Comment on above: Performed By: #### CELESTINA Cam, CDP #### [address] [place] [address] Slide Machine Tender: Belén Dale MD Hematocrit (Bld) [Volume fraction] 41.1 % Normal 36.3-47.1 [facility] Comment on above: Performed By: #### Ian Espinosa, BMPX, CDP #### [facility] [address] [place] [address] Slide Machine Tender: Belén Dale MD Hemoglobin (Bld) [Mass/Vol] 14.1 g/dL Normal 11.9-15.1 [facility] Comment on above: Performed By: #### Ian Espinosa, BMPX, CDP #### [facility] [address] [place] [address] Dr. [place], [facility] Slide Machine Tender: Belén Dale MD Immature granulocytes/100 WBC (Bld) 0 % Normal 0 [facility] Comment on above: Performed By: #### Ian Espinosa BMPX, CDP #### [address] [place], [facility] Slide Machine Tender: Belén Dale MD Lymphocytes (Bld) [#/Vol] 1.14 10*3/uL Normal 1.10-3.70 [facility] Comment on above: Performed By: #### Ian Espinosa BMPX, CDP #### [address] [place], [facility]83 Slide Machine Tender: Belén Dale MD Lymphocytes/100 WBC (Bld) 23 % Low 24-43 [facility] Comment on above: Performed By: #### Ian Espinosa BMPX, CDP #### [address] [place], [facility]83 Slide Machine Tender: Belén Dale MD MCH (RBC) [Entitic mass] 29.8 pg Normal 25.2-33.5 [facility] Comment on above: Performed By: #### Ian Espinosa, BMPX, CDP #### [address] [place], [place] [id number] Slide Machine Tender: Belén Dale MD MCHC (RBC) [Mass/Vol] 34.3 g/dL Normal 28.4-34.8 [facility] Comment on above: Performed By: #### M G, BMPX, CDP #### [facility] [address] [place], [place] [address] Slide Machine Tender: Belén Dale MD MCV (RBC) [Entitic vol] 86.9 fL Normal 82.6-102.9 [facility] Comment on above: Performed By: #### M Francisca, BMPX, CDP #### [facility] [address] [place], [facility]83 Slide Machine Tender: Belén Dale MD Monocytes (Bld) [#/Vol] 0.36 10*3/uL Normal 0.10-1.20 [facility] Comment on above: Performed By: #### Ian Espinosa, BMPX, CDP #### [address] [place], [place] [address] Slide Machine Tender: Belén Dale MD Monocytes/100 WBC (Bld) 7 % Normal 3-12 [facility] Comment on above: Performed By: #### Ian Espinosa, BMPX, CDP #### [address] [place], [facility]83 Slide Machine Tender: Belén Dale MD Neutrophil (Seg) 67 % High 36-65 [facility] Comment on above: Performed By: #### Ian Espinosa, BMPX, CDP #### [address] [place], [place] [address] Slide Machine Tender: Belén Dale MD NRBC Automated 0.0 per 100 WBC Normal 0.0 [facility] Comment on above: Performed By: #### Ian Espinosa, BMPX, CDP #### [facility] [address] [place], [facility]83 Slide Machine Tender: Belén Dale MD Platelet mean volume (Bld) [Entitic vol] 9.5 fL Normal 8.1-13.5 [facility] Comment on above: Performed By: #### M Francisca, BMPX, CDP #### [facility] [address] [place], [place] [id number] Slide Machine Tender: Belén Dale MD Platelets (Bld) [#/Vol] 180 10*3/uL Normal 138-453 [facility] Comment on above: Performed By: #### Ian Espinosa BMPX, CDP #### [facility] [address] [place], [place] [address] Slide Machine Tender: Belén Dale MD RBC (Bld) [#/Vol] 4.73 10*6/uL Normal 3.95-5.11 [facility] Comment on above: Performed By: #### YANIRA CamX, CDP #### [facility] [address] [place], [place] [id number] Slide Machine Tender: Belén Dale MD WBC (Bld) [#/Vol] 4.9 10*3/uL Normal 3.5-11.3 [facility] Comment on above: Performed By: #### Ian Espinosa BMPX, CDP #### [address] [place], [place] [address] Slide Machine Tender: Belén Dale MD Flu A/B Ag Detectionon 01-07 Flu A Ag Detection Negative Normal NEG [facility] Comment on above: Result Comment: for Influenza A Antigen Performed By: #### CELESTINA Cam, CDP #### [address] [place], [place] [id number] Slide Machine Tender: Belén Dale MD Flu B Ag Detection Negative Normal NEG [facility] Comment on above: Result Comment: for Influenza B Antigen. Performed By: #### YANIRA CamX, CDP #### [address] [place] [address] Slide Machine Tender: Belén Dale MD Magnesiumon 01-07-2022 Magnesium [Mass/Vol] 1.8 mg/dL Normal 1.6-2.6 [facility] Comment on above: Performed By: #### M G, BMPX, CDP #### [facility] [address] [place] [address] Slide Machine Tender: Belén Dale MD [id number] 01-07-2022 SARS-CoV-2 (COVID-19) RNA CHRISTI+probe Ql (Unsp spec) Not detected Normal NOTDET [facility] Comment on above: Result Comment: Rapid NAAT: [...] management decisions. Fact sheet for Healthcare Providers: https://www.fda.gov/media/075923/download Fact sheet for Patients: https://www.fda.gov/media/844972/download Methodology: Isothermal Nucleic Acid Amplification Performed By: #### C OVRB #### [facility] [address] [place] [id number] Slide Machine Tender: Belén Dale MD XR CHEST PORTABLEon 01-08-20 [...] Vania Rodríguez MD 01/07/22 Final result Normal [facility] XR NECK SOFT TISSUEon 2021 XR NECK [...] Susy Martin MD 01/07/22 Final result Normal [facility] US KIDNEYSon 12-26-2021 US KIDNEYS EXAMINATION: US [facility] HISTORY: [place] hematuria COMPARISON: 10/20/2020, 11/14/2021 TECHNIQUE: [...] ANDRADE Date: 2021-12-26 07:22 Normal [facility] CBC AUTO DIFFon 12-12-2021 BASO # 0.0 103/ul Normal 0.0-0.1 [facility] Comment on above: Performed By: #### C MP #### [facility] [address] [place] [address] Dr. Nilton Mccall Basophils/100 WBC (Bld) 0.5 % Normal 0.2-2.0 [facility] Comment on above: Performed By: #### C MP #### [facility] [address] [place] [address] Dr. Nilton Mccall EO # 0.2 103/ul Normal 0.0-0.7 [facility] Comment on above: Performed By: #### C MP #### [facility] [address] [place] [address] Dr. Nilton Mccall Eosinophils/100 WBC (Bld) 3.2 % Normal 0.9-7.0 [facility] Comment on above: Performed By: #### C MP #### [facility] [address] [place] [address] Dr. Nilton Mccall Erythrocyte distribution width (RBC) [Ratio] 11.9 % Normal 11.0-15.0 [facility] Comment on above: Performed By: #### C MP #### [facility] [address] [place] [address] Dr. Nilton Mccall Hematocrit (Bld) [Volume fraction] 42.8 % Normal 36.0-48.0 [facility] Comment on above: Performed By: #### C MP #### [facility] [address] [place] [address] Dr. Nilton Mccall Hemoglobin (Bld) [Mass/Vol] 14.4 g/dL Normal 12.0-16.0 [facility] Comment on above: Performed By: #### C MP #### [facility] [address] [place] [address] Dr. Nilton Mccall IG # 0.02 10e3/ul Normal 0.00-0.03 [facility] Comment on above: Performed By: #### C MP #### [facility] [address] [place] [address] Dr. Nilton Mccall IG % 0.3 % Normal 0.0-0.5 [facility] Comment on above: Performed By: #### C MP #### [facility] [address] [place] [address] Dr. Nilton Mccall LYMPH # 1.4 103/ul Normal 1.2-3.8 [facility] Comment on above: Performed By: #### C MP #### [facility] [address] [place] [address] Dr. Nilton Mccall Lymphocytes/100 WBC (Bld) 22.3 % Normal 20.5-60.0 [facility] Comment on above: Performed By: #### C MP #### [facility] [address] [place] [address] Dr. Nilton Mccall MANUAL DIFF REQ NO Normal [facility] Comment on above: Performed By: #### C MP #### [facility] [address] [place] [address] Dr. Nilton Mccall MCH (RBC) [Entitic mass] 28.9 pg Normal 26.7-34.0 [facility] Comment on above: Performed By: #### C MP #### [facility] [address] [place] [address] Dr. Nilton Mccall MCHC (RBC) [Mass/Vol] 33.6 g/dL Normal 29.9-35.2 [facility] Comment on above: Performed By: #### C MP #### [facility] [address] [place] [address] Dr. Nilton Mccall MCV (RBC) [Entitic vol] 85.9 fL Normal 81.0-99.0 [facility] Comment on above: Performed By: #### C MP #### [facility] [address] [place] [address] Dr. Nilton Mccall MONO # 0.3 103/ul Normal 0.3-0.8 [facility] Comment on above: Performed By: #### C MP #### [facility] [address] [place] [address] Dr. Nilton Mccall Monocytes/100 WBC (Bld) 4.9 % Normal 1.7-12.0 [facility] Comment on above: Performed By: #### C MP #### [facility] [address] [address] [address] Nilton Mccall NEUT # 4.4 103/ul Normal 1.4-6.5 [facility] Comment on above: Performed By: #### C MP #### [facility] [address] [address] [address] Nilton Mccall Neutrophils/100 WBC (Bld) 68.8 % Normal 43.0-75.0 [facility] Comment on above: Performed By: #### C MP #### [facility] [address] [address] [address] Nilton Mccall Platelet mean volume (Bld) [Entitic vol] 9.9 fL Normal 9.5-13.5 [facility] Comment on above: Performed By: #### C MP #### [facility] [address] [place] [address] Dr. Nilton Mccall PLT 237 103/ul Normal 150-450 [facility] Comment on above: Performed By: #### C MP #### [facility] [address] [address] [address] Nilton Mccall RBC 4.98 106/ul Normal 4.20-5.40 [facility] Comment on above: Performed By: #### C MP #### [facility] [address] [place] [address] Dr. Nilton Mccall WBC 6.3 103/ul Normal 4.0-11.0 [facility] Comment on above: Performed By: #### C MP #### [facility] [address] [place] [address] Dr. Nilton Mccall GLYCOHEMOGLOBIN A1Con 2021 ADA RECOMMENDATION SEE BELOW Normal [facility] Comment on above: Result Comment: ADA RECOMMENDED LIMIT 4.0 - 6.0 ADA THERAPEUTIC TARGET < 7.0 ACTION SUGGESTED > 7.0 Performed By: #### P T, PTT #### [facility] [address] [place] [address] Dr. Nilton Mccall Glucose [Mass/Vol] 120 mg/dL Normal [facility] Comment on above: Performed By: #### P T, PTT #### [facility] [address] [address] [address] Nilton Mccall HbA1c (Bld) [Mass fraction] 5.8 % Normal 4.5-6.2 [facility] Comment on above: Performed By: #### P T, PTT #### [facility] [address] [address] [address] Nilton Mccall LIPID PROFILEon 12-12-2021 CHOL-HDL RATIO NORM SEE BELOW Normal [facility] Comment on above: Result Comment: 3.3 - 4.4 LOW RISK 4.4 - 7.1 AVERAGE RISK 7.1 - 11.0 MODERATE RISK >11.0 HIGH RISK Performed By: #### P T, PTT #### [facility] [address] [address] [address] Nilton Mccall Cholesterol [Mass/Vol] 225 mg/dL Critically high <=200 [facility] Comment on above: Performed By: #### P T, PTT #### [facility] [address] [address] [address] Nilton Mccall Cholesterol in HDL [Mass/Vol] 32 mg/dL Critically low 40-60 [facility] Comment on above: Performed By: #### P T, PTT #### [facility] [address] [address] [address] Nilton Mccall Cholesterol in LDL [Mass/Vol] 132.8 mg/dL Normal [facility] Comment on above: Performed By: #### P T, PTT #### [facility] [address] [address] [address] Nilton Mccall Cholesterol.total/Ch olesterol in HDL [Mass ratio] 7.0 {ratio} Normal [facility] Comment on above: Performed By: #### P T, PTT #### [facility] [address] [address] [address] Nilton Mccall HDL NORMAL > or = 60 mg/dl - LO W CARDIOVASCULAR RISK <40 mg/dl - HIGH CARDIOVASCULAR RISK Normal [facility] Comment on above: Performed By: #### P T, PTT #### [facility] [address] [place] [address] Dr. Nilton Mccall LDL CALC NORMAL SEE BELOW Normal [facility] Comment on above: Result Comment: <100 mg/dl OPTIMAL 100 - 129 mg/dl NEAR OR ABOVE OPTIMAL 130 - 159 mg/dl BORDERLINE HIGH 160 - 189 mg/dl HIGH >190 mg/dl VERY HIGH Performed By: #### P T, PTT #### [facility] [address] [place] [address] Dr. Nilton Mccall Triglyceride [Mass/Vol] 301 mg/dL Critically high <=150 [facility] Comment on above: Performed By: #### P T, PTT #### [facility] [address] [place] [address] Dr. Nilton Mccall VLDL CALC 60.2 mg/dL Normal [facility] Comment on above: Performed By: #### P T, PTT #### [facility] [address] [place] [address] Dr. Nilton Mccall LIVER PROFILEon 12-12-2021 Albumin [Mass/Vol] 4.0 g/dL Normal 3.4-5.0 [facility] Comment on above: Performed By: #### P T, PTT #### [facility] [address] [place] [address] Dr. Nilton Mccall Albumin/Globulin [Mass ratio] 1.1 {ratio} Normal [facility] Comment on above: Performed By: #### P T, PTT #### [facility] [address] [place] [address] Dr. Nilton Mccall ALP [Catalytic activity/Vol] 70 U/L Normal 46-116 [facility] Comment on above: Performed By: #### P T, PTT #### [facility] [address] [place] [address] Dr. Nilton Mccall ALT [Catalytic activity/Vol] 30 U/L Normal 14-59 [facility] Comment on above: Performed By: #### P T, PTT #### [facility] [address] [place] [address] Dr. Nilton Mccall AST [Catalytic activity/Vol] 15 U/L Normal 15-37 [facility] Comment on above: Performed By: #### P T, PTT #### [facility] [address] [place] [address] Dr. Nilton Mccall BILI, CONJUGATED 0.1 mg/dL Normal 0.0-0.2 [facility] Comment on above: Performed By: #### P T, PTT #### [facility] [address] [place] [address] Dr. Nilton Mccall Bilirubin [Mass/Vol] 0.3 mg/dL Normal 0.2-1.0 [facility] Comment on above: Performed By: #### P T, PTT #### [facility] [address] [place] [address] Dr. Nilton Mccall Globulin (S) [Mass/Vol] 3.5 g/dL Normal [facility] Comment on above: Performed By: #### P T, PTT #### [facility] [address] [place] [address] Dr. Nilton Mccall Protein [Mass/Vol] 7.5 g/dL Normal 6.4-8.2 [facility] Comment on above: Performed By: #### P T, PTT #### [facility] [address] [place] [address] Dr. Nilton Mccall PROF CHEM 8 (BAS METB)on Anion gap [Moles/Vol] 7.2 mmol/L Normal [facility] Comment on above: Performed By: #### P T, PTT #### [facility] [address] [place] [address] Dr. Nilton Mccall Calcium [Mass/Vol] 9.1 mg/dL Normal 8.5-10.1 [facility] Comment on above: Performed By: #### P T, PTT #### [facility] [address] [place] [address] Dr. Nilton Mccall Chloride [Moles/Vol] 104 mmol/L Normal 98-107 [facility] Comment on above: Performed By: #### P T, PTT #### [facility] [address] [place] [address] Dr. Nilton Mccall CO2 [Moles/Vol] 29.7 mmol/L Normal 21.0-32.0 [facility] Comment on above: Performed By: #### P T, PTT #### [facility] [address] [place] [address] Dr. Nilton Mccall Creatinine [Mass/Vol] 0.97 mg/dL Normal 0.55-1.02 [facility] Comment on above: Performed By: #### P T, PTT #### [facility] [address] [place] [address] Dr. Nilton Mccall EGFR-AF NIGERIEN >60 Normal >=60 [facility] Comment on above: Performed By: #### P T, PTT #### [facility] [address] [place] [address] Dr. Nilton cMcall EGFR-NON AF NIGERIEN >60 Normal >=60 [facility] Comment on above: Performed By: #### P T, PTT #### [facility] [address] [address] [address] Nilton Mccall Glucose [Mass/Vol] 92 mg/dL Normal 74-106 [facility] Comment on above: Performed By: #### P T, PTT #### [facility] [address] [place] [address] Dr. Nilton Mccall Potassium [Moles/Vol] 3.9 mmol/L Normal 3.5-5.1 [facility] Comment on above: Performed By: #### P T, PTT #### [facility] [address] [address] [address] Nilton Mccall Sodium [Moles/Vol] 137 mmol/L Normal 136-145 [facility] Comment on above: Performed By: #### P T, PTT #### [facility] [address] [place] [address] Dr. Nilton Mccall Urea nitrogen [Mass/Vol] 14.0 mg/dL Normal 7.0-18.0 [facility] Comment on above: Performed By: #### P T, PTT #### [facility] [address] [place] [address] Dr. Nilton Mccall Urea nitrogen/Creatinine [Mass ratio] 14.4 mg/mg Normal [facility] Comment on above: Performed By: #### P T, PTT #### [facility] [address] [place] [address] Dr. Nilton Mccall TSHon 12-12-2021 TSH 0.340 uIU/mL Critically low 0.358-3.74 0 [facility] Comment on above: Performed By: #### P T, PTT #### [facility] [address] [place] [address] Dr. Nilton Mccall VITAMIN D 25 OHon 12-12-2021 VIT D 25-OH 44.3 ng/mL Normal [facility] Comment on above: Performed By: #### P T, PTT #### [facility] [address] [place] [address] Dr. Nilton Mccall VIT D RANGES SEE BELOW Normal [facility] Comment on above: Result Comment: <20 ng/mL Vit D deficient 20 - <30 ng/mL Vit D insufficient 30 - 100 ng/mL Vit D sufficient >100 ng/mL Potential Toxicity Performed By: #### P T, PTT #### [facility] [address] [place] [address] Dr. Nilton Mccall CULTURE URINEon 11-18-2021 CULTURE URINE Culture Observations : HEAVY GROWTH OF MIXED GENITAL CHANCE. NO POTENTIAL PATHOGENS SEEN. Normal [facility] Comment on above: Performed By: #### P T, PTT #### [facility] [address] [place] [address] Dr. Nilton Mccall CBC AUTO DIFFon 11-14-2021 BASO # 0.0 103/ul Normal 0.0-0.1 [facility] Comment on above: Performed By: #### P T, PTT #### [facility] [address] [place] [address] Dr. Nilton Mccall Basophils/100 WBC (Bld) 0.6 % Normal 0.2-2.0 [facility] Comment on above: Performed By: #### P T, PTT #### [facility] [address] [place] [address] Dr. Nilton Mccall EO # 0.2 103/ul Normal 0.0-0.7 [facility] Comment on above: Performed By: #### P T, PTT #### [facility] [address] [place] [address] Dr. Nilton Mccall Eosinophils/100 WBC (Bld) 2.6 % Normal 0.9-7.0 [facility] Comment on above: Performed By: #### P T, PTT #### [facility] [address] [place] [address] Dr. Nilton Mccall Erythrocyte distribution width (RBC) [Ratio] 11.9 % Normal 11.0-15.0 [facility] Comment on above: Performed By: #### P T, PTT #### [facility] [address] [place] [address] Dr. Nilton Mccall Hematocrit (Bld) [Volume fraction] 39.7 % Normal 36.0-48.0 [facility] Comment on above: Performed By: #### P T, PTT #### [facility] [address] [place] [address] Dr. Nilton Mccall Hemoglobin (Bld) [Mass/Vol] 13.8 g/dL Normal 12.0-16.0 [facility] Comment on above: Performed By: #### P T, PTT #### [facility] [address] [place] [address] Dr. Nilton Mccall IG # 0.03 10e3/ul Normal 0.00-0.03 [facility] Comment on above: Performed By: #### P T, PTT #### [facility] [address] [place] [address] Dr. Nilton Mccall IG % 0.5 % Normal 0.0-0.5 [facility] Comment on above: Performed By: #### P T, PTT #### [facility] [address] [place] [address] Dr. Nilton Mccall LYMPH # 1.7 103/ul Normal 1.2-3.8 [facility] Comment on above: Performed By: #### P T, PTT #### [facility] [address] [place] [address] Dr. Nilton Mccall Lymphocytes/100 WBC (Bld) 26.0 % Normal 20.5-60.0 [facility] Comment on above: Performed By: #### P T, PTT #### [facility] [address] [place] [address] Dr. Nilton Mccall MANUAL DIFF REQ NO Normal [facility] Comment on above: Performed By: #### P T, PTT #### [facility] [address] [place] [address] Dr. Nilton Mccall MCH (RBC) [Entitic mass] 29.6 pg Normal 26.7-34.0 [facility] Comment on above: Performed By: #### P T, PTT #### [facility] [address] [place] [address] Dr. Nilton Mccall MCHC (RBC) [Mass/Vol] 34.8 g/dL Normal 29.9-35.2 [facility] Comment on above: Performed By: #### P T, PTT #### [facility] [address] [place] [address] Dr. Nilton Mccall MCV (RBC) [Entitic vol] 85.0 fL Normal 81.0-99.0 [facility] Comment on above: Performed By: #### P T, PTT #### [facility] [address] [place] [address] Dr. Nilton Mccall MONO # 0.3 103/ul Normal 0.3-0.8 [facility] Comment on above: Performed By: #### P T, PTT #### [facility] [address] [place] [address] Dr. Nilton Mccall Monocytes/100 WBC (Bld) 5.1 % Normal 1.7-12.0 [facility] Comment on above: Performed By: #### P T, PTT #### [facility] [address] [place] [address] Dr. Nilton Mccall NEUT # 4.2 103/ul Normal 1.4-6.5 [facility] Comment on above: Performed By: #### P T, PTT #### [facility] [address] [address] [address] Nilton Mccall Neutrophils/100 WBC (Bld) 65.2 % Normal 43.0-75.0 [facility] Comment on above: Performed By: #### P T, PTT #### [facility] [address] [place] [address] Dr. Nilton Mccall Platelet mean volume (Bld) [Entitic vol] 9.4 fL Critically low 9.5-13.5 [facility] Comment on above: Performed By: #### P T, PTT #### [facility] [address] [address] [address] Nilton Mccall PLT 232 103/ul Normal 150-450 [facility] Comment on above: Performed By: #### P T, PTT #### [facility] [address] [place] [address] Dr. Nilton Mccall RBC 4.67 106/ul Normal 4.20-5.40 [facility] Comment on above: Performed By: #### P T, PTT #### [facility] [address] [place] [address] Dr. Nilton Mccall WBC 6.4 103/ul Normal 4.0-11.0 [facility] Comment on above: Performed By: #### P T, PTT #### [facility] [address] [place] [address] ABD/PELVIS WO CONon [...] BELÉN ANDRADE Date: 2021-11-14 14:24 Normal [facility] ER URINE PROFILEon 2 Bilirubin Ql (U) Negative Normal NEGATIVE [facility] Comment on above: Performed By: #### C BC #### [facility] [address] [place] [address] Dr. Nilton Mccall Clarity (U) CLEAR Normal CLEAR [facility] Comment on above: Performed By: #### C BC #### [facility] [address] [place] [address] Dr. Nilton Mccall Color (U) LT. YELLOW Normal YELLOW [facility] Comment on above: Performed By: #### C BC #### [facility] [address] [place] [address] Dr. Nilton Mccall ERUAMINA A micrscopic examina tion will be performed if indicated. Normal [facility] Comment on above: Performed By: #### C BC #### [facility] [address] [place] [address] Dr. Nilton Mccall Glucose Ql (U) Negative Normal NEGATIVE [facility] Comment on above: Performed By: #### C BC #### [facility] [address] [place] [address] Dr. Nilton Mccall Hemoglobin Ql (U) Negative Normal NEGATIVE [facility] Comment on above: Performed By: #### C BC #### [facility] [address] [place] [address] Dr. Nilton Mccall Ketones Ql (U) Negative Normal NEGATIVE [facility] Comment on above: Performed By: #### C BC #### [facility] [address] [place] [address] Dr. Nilton Mccall LEUKOCYTES Negative Normal NEGATIVE [facility] Comment on above: Performed By: #### C BC #### [facility] [address] [place] [address] Dr. Nilton Mccall Nitrite Ql (U) Negative Normal NEGATIVE [facility] Comment on above: Performed By: #### C BC #### [facility] [address] [place] [address] Dr. Nilton Mccall pH (U) 6.0 [pH] Normal 5-9 [facility] Comment on above: Performed By: #### C BC #### [facility] [address] [place] [address] Dr. Nilton Mccall SPEC GRAVITY 1.025 Normal 1.005-<=1. 025 [facility] Comment on above: Performed By: #### C BC #### [facility] [address] [place] [address] Dr. Nilton Mccall UA PROTEIN Negative Normal NEGATIVE/ TRACE [facility] Comment on above: Performed By: #### C BC #### [facility] [address] [place] [address] Dr. Nilton Mccall UR MICRO IND NOT INDICATED Normal [facility] Comment on above: Performed By: #### C BC #### [facility] [address] [place] [address] Dr. Nilton Mccall Urobilinogen Qn (U) 0.2 {Zarina'U}/dL Normal 0.2 - 1. 0 [facility] Comment on above: Performed By: #### C BC #### [facility] [address] [place] [address] Dr. Nilton Mccall MONOon 11-14-2021 Monocytes (Bld) [#/Vol] Negative Normal NEGATIVE [facility] Comment on above: Performed By: #### P T, PTT #### [facility] [address] [place] [address] Dr. Nilton Mccall PROF 14(COMP METB)on 022 Albumin [Mass/Vol] 3.8 g/dL Normal 3.4-5.0 [facility] Comment on above: Performed By: #### C MP #### [facility] [address] [place] [address] Dr. Nilton Mccall Albumin/Globulin [Mass ratio] 1.2 {ratio} Normal [facility] Comment on above: Performed By: #### C MP #### [facility] [address] [place] [address] Dr. Nilton Mccall ALP [Catalytic activity/Vol] 65 U/L Normal 46-116 [facility] Comment on above: Performed By: #### C MP #### [facility] [address] [place] [address] Dr. Nilton Mccall ALT [Catalytic activity/Vol] 29 U/L Normal 14-59 [facility] Comment on above: Performed By: #### C MP #### [facility] [address] [place] [address] Dr. Nilton Mccall Anion gap [Moles/Vol] 8.6 mmol/L Normal [facility] Comment on above: Performed By: #### C MP #### [facility] [address] [place] [address] Dr. Nilton Mccall AST [Catalytic activity/Vol] 13 U/L Critically low 15-37 [facility] Comment on above: Performed By: #### C MP #### [facility] [address] [place] [address] Dr. Nilton Mccall Bilirubin [Mass/Vol] 0.4 mg/dL Normal 0.2-1.0 [facility] Comment on above: Performed By: #### C MP #### [facility] [address] [place] [address] Dr. Nilton Mccall Calcium [Mass/Vol] 8.9 mg/dL Normal 8.5-10.1 [facility] Comment on above: Performed By: #### C MP #### [facility] [address] [place] [address] Dr. Nilton Mccall Chloride [Moles/Vol] 106 mmol/L Normal 98-107 [facility] Comment on above: Performed By: #### C MP #### [facility] [address] [place] [address] Dr. Nilton Mccall CO2 [Moles/Vol] 26.2 mmol/L Normal 21.0-32.0 [facility] Comment on above: Performed By: #### C MP #### [facility] [address] [address] [address] Nilton Mccall Creatinine [Mass/Vol] 1.12 mg/dL Critically high 0.55-1.02 [facility] Comment on above: Performed By: #### C MP #### [facility] [address] [address] [address] Nilton Mccall EGFR-AF NIGERIEN >60 Normal >=60 [facility] Comment on above: Performed By: #### C MP #### [facility] [address] [address] [address] Nilton Mccall EGFR-NON AF NIGERIEN 55 mL/min/1.73m2 Critically low >=60 [facility] Comment on above: Performed By: #### C MP #### [facility] [address] [address] [address] Nilton Mccall Globulin (S) [Mass/Vol] 3.3 g/dL Normal [facility] Comment on above: Performed By: #### C MP #### [facility] [address] [address] [address] Nilton Mccall Glucose [Mass/Vol] 88 mg/dL Normal 74-106 [facility] Comment on above: Performed By: #### C MP #### [facility] [address] [address] [address] Nilton Mccall Potassium [Moles/Vol] 3.8 mmol/L Normal 3.5-5.1 [facility] Comment on above: Performed By: #### C MP #### [facility] [address] [address] [address] Nilton Mccall Protein [Mass/Vol] 7.1 g/dL Normal 6.4-8.2 [facility] Comment on above: Performed By: #### C MP #### [facility] [address] [address] [address] Nilton Mccall Sodium [Moles/Vol] 137 mmol/L Normal 136-145 [facility] Comment on above: Performed By: #### C MP #### [facility] [address] [place], [place] [address] Dr. Nilton Mccall Urea nitrogen [Mass/Vol] 14.0 mg/dL Normal 7.0-18.0 [facility] Comment on above: Performed By: #### C MP #### [facility] [address] [place], [place] [address] Dr. Nilton Mccall Urea nitrogen/Creatinine [Mass ratio] 12.5 mg/mg Normal [facility] Comment on above: Performed By: #### C MP #### [facility] [address] [place], [place] [address] Dr. Nilton Mccall MG MAMM DIAGNOSTIC 3D LARS CA Don 10-19-2021 MG MAMM DIAGNOSTIC 3D LARS CAD Patient: LEANA TRAN Exam Date: 10/19/2021 : 1985 Gender:F Ordering : DR CAS DOWELL . Admission #: [id number] Family : Order #: [id number] CLICK HERE TO VIEW EXAM RADIOLOGY REPORT [...] cervical cancer at age 48. LOCATION: [facility] BREAST COMPOSITION: Scattered areas fibroglandular [...] M.D. on 10/19/2021 at 11:10 Normal [facility] US BREAST LARS LIMITEDon 10-06 US BREAST LARS LIMITED Patient: LEANA TRAN Exam Date: 10/19/2021 : 1985 Gender:F Ordering : DR CAS DOWELL . Admission #: [id number] Family : Order #: [id number] CLICK HERE TO VIEW EXAM RADIOLOGY REPORT [...] cervical cancer at age 48. LOCATION: [facility] BREAST COMPOSITION: Scattered areas fibroglandular [...] M.D. on 10/19/2021 at 11:10 Normal [facility] XR CHEST 2V FRONTAL/LATon [facility] LUNG DIFFUSION CAPACITY (FARHAD O)on 09-27-2021 DLCO (ml/min/mmHg) 22.00 ml/min/mmHg [facility] DLCO/VA (ml/min/mmHg/L) 4.60 ml/min/mmHg/L [facility] DLCOcor (ml/min/mmHg) 21.26 ml/min/mmHg [facility] ERV BOX (L) 0.[address] [facility] GFR45-36% POST (L/S) 2.46 L/S [facility] TBZ08-97% PRE (L/S) 2.13 L/S [place] [facility] FEV1 PRE (L) 2.[address] [facility] FEV1/FVC POST (%) 74 % [facility] FEV1/FVC PRE (%) 73 % [facility] FEV1_POST (L) 2.[address] [facility] FRC Box (L) 1.[address] [facility] FVC POST (L) 3.[address] [facility] FVC PRE (L) 3.[address] [facility] IC BOX (L) 2.[address] [facility] PEF POST (L/S) 5.48 L/S [facility] PEF PRE (L/S) 5.56 L/S [facility] RV Box (L) 1.[address] [facility] RV/TLC Box (%) 32 % [facility] TLC Box (L) 4.[address] [facility] VA (L) 4.[address] [facility] VC (L) BOX 3.[address] [facility] CTA CHEST WO W CONon 09-23-2 022 CTA CHEST WO W CON EXAMINATION: [...] AYAKA STEARNS Date: 2021-09-22 22:30 Normal [facility] PROF CHEM 8 (BAS METB)on Anion gap [Moles/Vol] 5.4 mmol/L Normal [facility] Comment on above: Performed By: #### B MP #### [facility] [address] [place] [address] Dr. Nilton Mccall Calcium [Mass/Vol] 9.2 mg/dL Normal 8.5-10.1 [facility] Comment on above: Performed By: #### B MP #### [facility] [address] [place] [address] Dr. Nilton Mccall Chloride [Moles/Vol] 102 mmol/L Normal 98-107 [facility] Comment on above: Performed By: #### B MP #### [facility] [address] [place] [address] Dr. Niltno Mccall CO2 [Moles/Vol] 26.1 mmol/L Normal 21.0-32.0 [facility] Comment on above: Performed By: #### B MP #### [facility] [address] [place] [address] Dr. Nilton Mccall Creatinine [Mass/Vol] 0.99 mg/dL Normal 0.55-1.02 [facility] Comment on above: Performed By: #### B MP #### [facility] [address] [place] [address] Dr. Nilton Mccall EGFR-AF NIGERIEN >60 Normal >=60 [facility] Comment on above: Performed By: #### B MP #### [facility] [address] [place] [address] Dr. Nilton Mccall EGFR-NON AF NIGERIEN >60 Normal >=60 [facility] Comment on above: Performed By: #### B MP #### [facility] [address] [place] [address] Dr. Nilton Mccall Glucose [Mass/Vol] 113 mg/dL Critically high 74-106 [facility] Comment on above: Performed By: #### B MP #### [facility] [address] [address] [address] Nilton Mccall Potassium [Moles/Vol] 3.5 mmol/L Normal 3.5-5.1 [facility] Comment on above: Performed By: #### B MP #### [facility] [address] [address] [address] Nilton Mccall Sodium [Moles/Vol] 130 mmol/L Critically low 136-145 [facility] Comment on above: Performed By: #### B MP #### [facility] [address] [address] [address] Nilton Mccall Urea nitrogen [Mass/Vol] 13.0 mg/dL Normal 7.0-18.0 [facility] Comment on above: Performed By: #### B MP #### [facility] [address] [place] [address] Dr. Nilton Mccall Urea nitrogen/Creatinine [Mass ratio] 13.1 mg/mg Normal [facility] Comment on above: Performed By: #### B MP #### [facility] [address] [address] [address] Nilton Mccall GLYCOHEMOGLOBIN A1Con 2021 ADA RECOMMENDATION SEE BELOW Normal [facility] Comment on above: Result Comment: ADA RECOMMENDED LIMIT 4.0 - 6.0 ADA THERAPEUTIC TARGET < 7.0 ACTION SUGGESTED > 7.0 Performed By: #### C BC #### [facility] [address] [address] [address] Nilton Mccall Glucose [Mass/Vol] 140 mg/dL Normal [facility] Comment on above: Performed By: #### C BC #### [facility] [address] [address] [address] Nilton Mccall HbA1c (Bld) [Mass fraction] 6.5 % Critically high 4.5-6.2 [facility] Comment on above: Performed By: #### C BC #### [facility] [address] [address] [address] Nilton Mccall US Pelvis limitedon 08-20-19 IMPRESSION: No inguinal or femoral hernia identified. Construction Engineering Manager: ROBER Transcribe Date/Time: Aug 19 2021 1:20P Dictated by : LUANNE BRYANT MD This examination was interpreted and the report reviewed and electronically signed by: LUANNE BRYANT MD on Aug 19 2021 2:51PM EST [id number] E_DIVISION OF RADIOLOGY * * *Final Report* * * DATE OF EXAM: Aug 19 2021 1:14PM [facility] [address] [facility] [place] PELVIS [facility] / PROCEDURE REASON: multiple diagnoses * * * * Physician Interpretation * * * * MSK_US RIGHT INGUINAL HERNIA ULTRASOUND: CLINICAL INFORMATION: Chronic RLQ pain Chronic RLQ pain TECHNIQUE: Donohue-scale real-time ultrasound of the medial hip and groin with dynamic imaging and power Doppler examination was performed. Images were saved to the permanent image archive. [id number]. COMPARISON: None FINDINGS: HERNIA EVALUATION: No direct, indirect hernia, or femoral hernia identified with or without valsalva maneuver. INGUINAL LIGAMENT: Normal in appearance. [id number] E_DIVISION OF RADIOLOGY [facility] * * *Final Report* * * DATE OF EXAM: Aug 19 2021 1:14PM [facility] [address] [facility] / PROCEDURE REASON: multiple diagnoses * * * * Physician Interpretation * * * * MSK_US RIGHT INGUINAL HERNIA ULTRASOUND: CLINICAL INFORMATION: Chronic RLQ pain Chronic RLQ pain TECHNIQUE: Donohue-scale real-time ultrasound of the medial hip and groin with dynamic imaging and power Doppler examination was performed. Images were saved to the permanent image archive. [id number]. COMPARISON: None FINDINGS: HERNIA EVALUATION: No direct, indirect hernia, or femoral hernia identified with or without valsalva maneuver. INGUINAL LIGAMENT: Normal in appearance. IMPRESSION IMPRESSION: No inguinal or femoral hernia identified. Construction Engineering Manager: ROBER Transcribe Date/Time: Aug 19 2021 1:20P Dictated by : LUANNE BRYANT MD This examination was interpreted and the report reviewed and electronically signed by: LUANNE BRYANT MD on Aug 19 2021 2:51PM EST [facility] Radiology Study observation (narrative) [facility] US Pelvis limitedOrdered By: Ccf Provider on 08-19-2021 [facility] 08-17-2021 Echocardiography Echocardiography Rep ort: Transthoracic Echo [facility] Date of service: 08/17/2021 2:18:31 PM Ordering physician: SAI PEREZ Indication: Hypotension Technologist: Yuni Durbin [facility] Interpreting physician: Gavin Muse MD PATIENT: [...] * * Final * * * CC [facility] : [id number] [employer] Normal [facility] LVEF ECHOon 08-17-2021 LV Ejection Fraction 58 % [facility] PAP ACOG PANEL 2: 30 to 65on 08-05-2021 . . Normal The [facility] Comment on above: Result Comment: Perf ormed at: WB Performed By: #### P T, PTT #### [facility] [address] [address] [address] Nilton Mccall Age Gdln ACOG Testing 30-65 Normal [facility] Comment on above: Performed By: #### P T, PTT #### [facility] [address] [address] [address] Nilton Mccall DIAGNOSIS: Comment Normal [facility] Comment on above: Result Comment: NEGA TIVE FOR INTRAEPITHELIAL LESION OR MALIGNANCY. Performed at: WB Performed By: #### P T, PTT #### [facility] [address] [address] [address] Nilton Mccall HPV Aptima Negative Normal Negative [facility] Comment on above: Result Comment: This nucleic acid amplification test detects fourteen high-risk HPV types (16,18,31,33,35,39,45,51,52,56,58,59,66,68) without differentiation. Performed at: =G Performed By: #### P T, PTT #### [facility] [address] [address] [address] Nilton Mccall Methodology: Comment Normal [facility] Comment on above: Result Comment: This liquid based ThinPrep(R) pap test was screened with the use of an image guided system. Performed at: WB Performed By: #### P T, PTT #### [facility] [address] [place] [address] Dr. Nilton Mccall Note: Comment Normal [facility] Comment on above: Result Comment: The [...] Performed By: #### P T, PTT #### [facility] [address] [address] [address] Nilton Mccall Performed by: Comment Normal The [facility] Comment on above: Result Comment: Jay Ellison Commercial Diver (ASCP) Performed at: WB Performed By: #### P T, PTT #### [facility] [address] [place], [place] [address] Dr. Nilton Mccall Specimen adequacy: Comment Normal [facility] Comment on above: Result Comment: Sati sfactory for evaluation. No endocervical component is identified. Performed at: WB Performed By: #### P T, PTT #### [facility] [address] [address] [address] Nilton Mccall C3 SerPl-mCncon 07-25-2021 Complement C3 [Mass/Vol] 165 mg/dL Normal 86-166 [facility] Comment on above: Order Comment: Speci men Type: BLOOD SPECIMEN Ordering Facility: [facility] Address: [address] [place] [address] Performed By: #### 4 [id number], 4498-2 #### [facility] CLIA [id number] [address] [place] [address] [place] C4 SerPl-mCncon 07-25-2021 Complement C4 [Mass/Vol] 32 mg/dL Normal 13-46 [facility] Comment on above: Order Comment: Speci men Type: BLOOD SPECIMEN Ordering Facility: [facility] Address: [address] [place] [address] Performed By: #### 4 485-9, 4498-2 #### [facility] CLIA [id number] [address] [place] [address] [place] TRYPTASE BLOODon 07-25-2021 Tryptase [Mass/Vol] 3.4 ug/L Normal <8.4 [facility] Comment on above: Order Comment: Speci men Type: BLOOD SPECIMEN Ordering Facility: [facility] Address: [address] [place] [address] Performed By: #### T RYPT #### [facility] CLIA [id number] [address] [place] [address] [place] ACTH BLDon 07-18-2021 Corticotropin (P) [Mass/Vol] 15.5 pg/mL 7.2 - 63.3 pg/mL [facility] CORTISOL [facility] 07-18-2021 Cortisol [Mass/Vol] 9.9 ug/dL 4.8 - 19 .5 ug/dL [facility] Alpha tocopherol [Mass/Vol]o n 07-07-2021 Beta+gamma tocopherol [Mass/Vol] 3.0 mg/L 0.3 - 3.2 mg/L [facility] VITAMIN E/TOCOPHEROLon 07-07 Alpha tocopherol [Mass/Vol] 13.1 mg/L 6.0 - 23.0 mg/L [facility] ACTH [facility] 07-02-2021 Corticotropin (P) [Mass/Vol] 15.1 pg/mL 7.2 - 63.3 pg/mL [facility] CERULOPLASMIN [facility] 07-02-19 Ceruloplasmin [Mass/Vol] 23 mg/dL 16 - 45 mg/dL [facility] CK CREATINE KINASE 022 CK [Catalytic activity/Vol] 51 U/L 42 - 196 U/L [facility] CORTISOL [facility] 07-01-2021 Cortisol [Mass/Vol] 7.4 ug/dL 4.8 - 19 .5 ug/dL [facility] DHEA-S [facility] 07-01-2021 DHEA-S [Mass/Vol] 35.9 ug/dL Low 60.9 - 337.0 ug/dL [facility] FERRITIN [facility] 07-01-2021 Ferritin [Mass/Vol] 98.2 ng/mL 14.7 - 205.1 ng/mL [facility] BNP 06-24-2021 Natriuretic peptide B (Bld) [Mass/Vol] 15.0 pg/mL Normal <=450.0 [facility] Comment on above: Performed By: #### C BC #### [facility] [address] [place], [place] [address] Dr. Nilton Mccall CARDIAC CHAYO 3-6on 2 CK [Catalytic activity/Vol] 60 U/L Normal 26-192 [facility] Comment on above: Performed By: #### C MREP #### [facility] [address] [place], [place] [address] Dr. Nilton Mccall CK.MB [Mass/Vol] 0.33 ng/mL Normal <=3.60 [facility] Comment on above: Performed By: #### C MREP #### [facility] [address] [place] [address] Dr. Nilton Mccall HSTROP 4.7 pg/mL Normal 4.0-51.3 [facility] Comment on above: Result Comment: CUT- OFF POINTS HAVE BEEN ESTABLISHED BASED ON THE FOURTH UNIVERSAL DEFINITIONS OF MYOCARDIAL INFARCTION. THE UPPER REFERENCE LIMIT (URL) OF TROPONIN, DEFINED THE 99TH PERCENTILE OF cTnI DISTRIBUTION IN A REFERENCE POPULATION, HAS BEEN CONFIRMED THE DECISION THRESHOLD FOR [place] DIAGNOSIS. Performed By: #### C MREP #### [facility] [address] [address] [address] Nilton Mccall CARDIAC CHAYO ADMITon 022 CK [Catalytic activity/Vol] 71 U/L Normal 26-192 [facility] Comment on above: Performed By: #### C BC #### [facility] [address] [place] [address] Dr. Nilton Mccall CK.MB [Mass/Vol] 0.50 ng/mL Normal <=3.60 [facility] Comment on above: Performed By: #### C BC #### [facility] [address] [place] [address] Dr. Nilton Mccall HSTROP 3.8 pg/mL Critically low 4.0-51.3 [facility] Comment on above: Result Comment: CUT- OFF POINTS HAVE BEEN ESTABLISHED BASED ON THE FOURTH UNIVERSAL DEFINITIONS OF MYOCARDIAL INFARCTION. THE UPPER REFERENCE LIMIT (URL) OF TROPONIN, DEFINED THE 99TH PERCENTILE OF cTnI DISTRIBUTION IN A REFERENCE POPULATION, HAS BEEN CONFIRMED THE DECISION THRESHOLD FOR [place] DIAGNOSIS. Performed By: #### C BC #### [facility] [address] [place] [address] Dr. Nilton Mccall PILI 25 ng/mL Normal 9-82 [facility] Comment on above: Performed By: #### C BC #### [facility] [address] [place] [address] Dr. Nilton Mccall CBC AUTO DIFFon 06-24-2021 BASO # 0.1 103/ul Normal 0.0-0.1 [facility] Comment on above: Performed By: #### C MP #### [facility] [address] [address] [address] Nilton Mccall Basophils/100 WBC (Bld) 0.6 % Normal 0.2-2.0 [facility] Comment on above: Performed By: #### C MP #### [facility] [address] [address] [address] Nilton Mccall EO # 0.2 103/ul Normal 0.0-0.7 [facility] Comment on above: Performed By: #### C MP #### [facility] [address] [address] [address] Nilton Mccall Eosinophils/100 WBC (Bld) 2.2 % Normal 0.9-7.0 [facility] Comment on above: Performed By: #### C MP #### [facility] [address] [address] [address] Nilton Mccall Erythrocyte distribution width (RBC) [Ratio] 11.8 % Normal 11.0-15.0 [facility] Comment on above: Performed By: #### C MP #### [facility] [address] [address] [address] Nilton Mccall Hematocrit (Bld) [Volume fraction] 43.4 % Normal 36.0-48.0 [facility] Comment on above: Performed By: #### C MP #### [facility] [address] [address] [address] Nilton Mccall Hemoglobin (Bld) [Mass/Vol] 14.8 g/dL Normal 12.0-16.0 [facility] Comment on above: Performed By: #### C MP #### [facility] [address] [address] [address] Nilton Mccall IG # 0.04 10e3/ul Critically high 0.00-0.03 [facility] Comment on above: Performed By: #### C MP #### [facility] [address] [address] [address] Nilton Mccall IG % 0.4 % Normal 0.0-0.5 [facility] Comment on above: Performed By: #### C MP #### [facility] [address] [place] [address] Dr. Nilton Mccall LYMPH # 2.0 103/ul Normal 1.2-3.8 [facility] Comment on above: Performed By: #### C MP #### [facility] [address] [place] [address] Dr. Nilton Mccall Lymphocytes/100 WBC (Bld) 21.5 % Normal 20.5-60.0 [facility] Comment on above: Performed By: #### C MP #### [facility] [address] [place] [address] Dr. Nilton Mccall MANUAL DIFF REQ NO Normal [facility] Comment on above: Performed By: #### C MP #### [facility] [address] [place] [address] Dr. Nilton Mccall MCH (RBC) [Entitic mass] 29.4 pg Normal 26.7-34.0 [facility] Comment on above: Performed By: #### C MP #### [facility] [address] [place] [address] Dr. Nilton Mccall MCHC (RBC) [Mass/Vol] 34.1 g/dL Normal 29.9-35.2 [facility] Comment on above: Performed By: #### C MP #### [facility] [address] [place] [address] Dr. Nilton Mccall MCV (RBC) [Entitic vol] 86.1 fL Normal 81.0-99.0 [facility] Comment on above: Performed By: #### C MP #### [facility] [address] [place] [address] Dr. Nilton Mccall MONO # 0.5 103/ul Normal 0.3-0.8 [facility] Comment on above: Performed By: #### C MP #### [facility] [address] [place] [address] Dr. Nilton Mccall Monocytes/100 WBC (Bld) 5.4 % Normal 1.7-12.0 [facility] Comment on above: Performed By: #### C MP #### [facility] [address] [place] [address] Dr. Nilton Mccall NEUT # 6.3 103/ul Normal 1.4-6.5 [facility] Comment on above: Performed By: #### C MP #### [facility] [address] [place] [address] Dr. Nilton Mccall Neutrophils/100 WBC (Bld) 69.9 % Normal 43.0-75.0 [facility] Comment on above: Performed By: #### C MP #### [facility] [address] [place] [address] Dr. Nilton Mccall Platelet mean volume (Bld) [Entitic vol] 9.6 fL Normal 9.5-13.5 [facility] Comment on above: Performed By: #### C MP #### [facility] [address] [place] [address] Dr. Nilton Mccall PLT 290 103/ul Normal 150-450 [facility] Comment on above: Performed By: #### C MP #### [facility] [address] [place] [address] Dr. Nilton Mccall RBC 5.04 106/ul Normal 4.20-5.40 [facility] Comment on above: Performed By: #### C MP #### [facility] [address] [place] [address] Dr. Nilton Mccall WBC 9.1 103/ul Normal 4.0-11.0 [facility] Comment on above: Performed By: #### C MP #### [facility] [address] [place] [address] STROKE HEAD WOon 06-25-19 CT STROKE HEAD WO NONCONTRAST CT SCAN [...] MAREK EPSTEIN Date: 2021-06-24 20:56 Normal [facility] CT STROKE HEAD WO NONCONTRAST [...] artifact. Repeat imaging is recommended. 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 Electronically authenticated by: MAREK EPSTEIN Date: 2021-06-24 19:15 Normal [facility] Covid-19 PCR (CVDTB)on 06-06 SARS-CoV-2 (COVID-19) RNA CHRISTI+probe Ql (Unsp spec) Not detected Normal NOT DETECTED [facility] Comment on above: Result Comment: [...] for this test is supported by the [employer] Instructor of Health and Human Service's declaration that [...] Performed By: #### P T, PTT #### [facility] [address] [address] [address] Nilton Mccall ER URINE PROFILEon 2 Bilirubin Ql (U) Negative Normal NEGATIVE [facility] Comment on above: Performed By: #### E RUR, PREGU #### [facility] [address] [place] [address] Dr. Nilton Mccall Clarity (U) CLEAR Normal CLEAR [facility] Comment on above: Performed By: #### E RUR, PREGU #### [facility] [address] [place] [address] Dr. Nilton Mccall Color (U) YELLOW Normal YELLOW [facility] Comment on above: Performed By: #### E RUR, PREGU #### [facility] [address] [place] [address] Dr. Nilton Mccall ERUAHD A micrscopic examina tion will be performed if indicated. Normal [facility] Comment on above: Performed By: #### E RUR, PREGU #### [facility] [address] [place] [address] Dr. Nilton Mccall Glucose Ql (U) Negative Normal NEGATIVE [facility] Comment on above: Performed By: #### E RUR, PREGU #### [facility] [address] [place] [address] Dr. Nilton Mccall Hemoglobin Ql (U) Negative Normal NEGATIVE [facility] Comment on above: Performed By: #### E RUR, PREGU #### [facility] [address] [place] [address] Dr. Nilton Mccall Ketones Ql (U) Negative Normal NEGATIVE [facility] Comment on above: Performed By: #### E RUR, PREGU #### [facility] [address] [place] [address] Dr. Nilton Mccall LEUKOCYTES Negative Normal NEGATIVE [facility] Comment on above: Performed By: #### E RUR, PREGU #### [facility] [address] [place] [address] Dr. Nilton Mccall Nitrite Ql (U) Negative Normal NEGATIVE [facility] Comment on above: Performed By: #### E RUR, PREGU #### [facility] [address] [place] [address] Dr. Nilton Mccall pH (U) 6.0 [pH] Normal 5-9 [facility] Comment on above: Performed By: #### E RUR, PREGU #### [facility] [address] [place] [address] Dr. Nilton Mccall SPEC GRAVITY 1.015 Normal 1.005-<=1. 025 [facility] Comment on above: Performed By: #### E RUR, PREGU #### [facility] [address] [place] [address] Dr. Nilton Mccall UA PROTEIN Negative Normal NEGATIVE/ TRACE [facility] Comment on above: Performed By: #### E RUR, PREGU #### [facility] [address] [place] [address] Dr. Nilton Mccall UR MICRO IND NOT INDICATED Normal [facility] Comment on above: Performed By: #### E RUR, PREGU #### [facility] [address] [place] [address] Dr. Nilton Mccall Urobilinogen Qn (U) 0.2 {Zarina'U}/dL Normal 0.2 - 1. 0 [facility] Comment on above: Performed By: #### E RUR, PREGU #### [facility] [address] [place] [address] Dr. Nilton Mccall LACTATE/LACTIC ACIDon 2021 Lactate [Moles/Vol] 1.0 mmol/L Normal 0.4-1.9 [facility] Comment on above: Performed By: #### P T, PTT #### [facility] [address] [place] [address] Dr. Nilton Mccall LIPASEon 06-24-2021 Lipase [Catalytic activity/Vol] 103.0 U/L Normal 73.0-393.0 [facility] Comment on above: Performed By: #### C BC #### [facility] [address] [place] [address] Dr. Nilton Mccall PH VENOUS BLOODon 06-24-2021 PCO2 VENOUS 29.4 mmHg Critically low 40.0-52.0 [facility] Comment on above: Performed By: #### P T, PTT #### [facility] [address] [address] [address] Nilton Mccall pH VENOUS 7.478 Critically high 7.330-7.43 0 [facility] Comment on above: Performed By: #### P T, PTT #### [facility] [address] [address] [address] Nilton Mccall POINT OF CARE GLUCOSEon 06-06 Glucose [Mass/Vol] 107 mg/dL Critically high 74-106 T [facility] Comment on above: Performed By: #### C MP #### [facility] [address] [place] [address] Dr. Nilton Mccall URon 06-24-2021 , QUAL Negative Normal NEGATIVE [facility] Comment on above: Performed By: #### E RUR, PREGU #### [facility] [address] [place] [address] Dr. Nilton Mccall PROTIMEon 06-24-2021 INR Coag (PPP) [Relative time] 0.99 {INR} Normal [facility] Comment on above: Performed By: #### P T, PTT #### [facility] [address] [place] [address] Dr. Nilton Mccall INR GUIDELINES SEE BELOW Normal [facility] Comment on above: Result Comment: JOSS RED INR: 2.0 - 3.0 CONDITIONS NOT LISTED BELOW 2.5 - 3.5 FOR PROSTHETIC HEART VALVE REPLACEMENT 2.5 - 3.5 RECURRENT THROMBOSIS Performed By: #### P T, PTT #### [facility] [address] [place] [address] Dr. Nilton Mccall PT Coag (PPP) [Time] 10.7 s Normal 9.0-11.6 [facility] Comment on above: Performed By: #### P T, PTT #### [facility] [address] [place] [address] Dr. Nilton Mccall PTTon 06-24-2021 aPTT Coag (Bld) [Time] 32.5 s Normal 22.3-36.2 [facility] Comment on above: Performed By: #### P T, PTT #### [facility] [address] [address] [address] Nilton Mccall TSHon 06-24-2021 TSH 0.655 uIU/mL Normal 0.358-3.74 0 [facility] Comment on above: Performed By: #### C BC #### [facility] [address] [address] [address] Nilton Mccall TSH RANGE SEE BELOW Normal [facility] Comment on above: Result Comment: <0.3 4 UIU/ml HYPERTHYROID 0.34-5.60 UIU/ml EUTHYROID >5.60 UIU/ml HYPOTHYROID Performed By: #### C BC #### [facility] [address] [place] [address] Dr. Nilton Mccall XR CHEST 1 Von [...] BELÉN DC Date: 2021-06-24 19:14 Normal [facility] Basic Metabolic Panelon 06-05 Anion gap [Moles/Vol] 11 mmol/L 9 - 17 mmol/L [facility] Calcium [Mass/Vol] 9.3 mg/dL 8.6 - 10. 4 mg/dL [facility] Chloride [Moles/Vol] 102 mmol/L 98 - 10 7 mmol/L [facility] CO2 [Moles/Vol] 23 mmol/L 20 - 31 mmol/L [facility] Creatinine [Mass/Vol] 0.78 mg/dL 0.50 - 0.90 mg/dL [facility] GFR >60 >60 mL/min [employer] GFR Non- >60 >60 mL/min [facility] Glucose [Mass/Vol] 160 mg/dL High 70 - 99 mg/dL [facility] Interpretation and review of laboratory results Abnormal [facility] Potassium [Moles/Vol] 3.7 mmol/L 3.7 - 5.3 mmol/L [facility] Sodium [Moles/Vol] 136 mmol/L 135 - 144 mmol/L [facility] Urea nitrogen (BldV) [Mass/Vol] 12 mg/dL 6 - 20 mg/dL [facility] Urea nitrogen/Creatinine (Bld) [Mass ratio] 15 [facility] CBC with Auto Differentialon 06-21-2021 Absolute Eos # 0.21 [facility] th Absolute Immature Granulocyte 0.03 [facility] Absolute Lymph # 2.43 [facility] Absolute Richardson # 0.43 [facility] Basophils (Bld) [#/Vol] 0.05 10*3/uL [facility] Basophils/100 WBC (Bld) 1 % 0 - 2 % [facility] Eosinophils/100 WBC (Bld) 3 % 1 - 4 % [facility] Hematocrit (Bld) [Volume fraction] 41.8 % 36.3 - 47.1 % [facility] Hemoglobin.gastroint estinal spec 1 Ql (Stl) 14.0 g/dL 11.9 - 15.1 g/dL [facility] Immature granulocytes/100 WBC (Bld) 0 % 0 [facility] Interpretation and review of laboratory results Abnormal [facility] Lymphocytes/100 WBC (Bld) 29 % 24 - 43 % [facility] MCH (RBC) [Entitic mass] 29.2 pg 25.2 - 33.5 pg [facility] MCHC (RBC) [Mass/Vol] 33.5 g/dL 28.4 - 34.8 g/dL [facility] MCV (RBC) [Entitic vol] 87.1 fL 82.6 - 102.9 fL [facility] Monocytes/100 WBC (Bld) 5 % 3 - 12 % [facility] NRBC Automated 0.0 0.0 per 100 WBC [facility] Platelet distribution width (Bld) [Ratio] 11.5 % Low 11.8 - 14.4 % [facility] Platelet mean volume (Bld) [Entitic vol] 9.6 fL 8.1 - 13.5 fL [facility] Platelets (Bld) [#/Vol] 264 10*3/uL [facility] RBC (Bld) [#/Vol] 4.80 10*6/uL 3.95 - 5.11 m/uL [facility] Segmented neutrophils/100 WBC (Bld) 62 % 36 - 65 % [facility] Segs Absolute 5.12 [facility] h WBC (Bld) [#/Vol] 8.3 10*3/uL [facility] Laboratory - Chemistry and C hemistry - challengeon 06-21-2021 GFR/1.73 sq M.predicted MDRD (S/P/Bld) [Vol rate/Area] [facility] Comment on above: Average GFR for 30-3 9 years old: 107 mL/min/1.73sq m Chronic Kidney Disease: <60 mL/min/1.73sq m Kidney failure: <15 mL/min/1.73sq m eGFR calculated using average adult body mass. Additional eGFR calculator available at: http://www.[employer]/multiple_crcl_2012.htm Stage 1: Some kidney damage normal GFR [...] High Sensitivity <6 0 - 14 ng/L [facility] Comment on above: High Sensitivity Troponin values cannot be compared with other Troponin methodologies. Patients with high levels of Biotin oral intake (i.e >5mg/day) may have falsely decreased Troponin levels. Samples collected within 8 hours of biotin intake may require additional information for diagnosis. [facility] XR CHEST PORTABLEon 06-22-19 22 No acute cardiopulmo nary disease. [facility] RIS CONSOLIDATED EXAMINATION: ONE XRAY VIEW OF THE CHEST 06/21/2021 12:52 am COMPARISON: 05/20/2021 HISTORY: ORDERING SYSTEM PROVIDED HISTORY: chest pain TECHNOLOGIST PROVIDED HISTORY: chest pain FINDINGS: Heart size and configuration are normal. Hilar and mediastinal structures are unremarkable. The lungs are clear. No pneumothorax or pleural fluid. No acute bone finding. PN RIS CONSOLIDATED Armando Stern MD - 06/21/2021 EXAMINATION: ONE XRAY VIEW OF THE CHEST 06/21/2021 12:52 am COMPARISON: 05/20/2021 HISTORY: ORDERING SYSTEM PROVIDED HISTORY: chest pain TECHNOLOGIST PROVIDED HISTORY: chest pain FINDINGS: Heart size and configuration are normal. Hilar and mediastinal structures are unremarkable. The lungs are clear. No pneumothorax or pleural fluid. No acute bone finding. IMPRESSION: No acute cardiopulmonary disease. [facility] Phone: Radiology Study observation (narrative) [facility] Phone: XR CHEST PORTABLEOrdered By: Armando Stern on 06-21-2021 [employer] Phone: ALLIED HEALTHon 06-16-2021 [facility] HNO ID: [id number] Author: RT Geovanna(R) Service: ? Author Type: [...] MR; Exam(s) Completed: Head: Multiple Sclerosis SIGNATURE: RT Clare(R), RT Geovanna(R) PATIENT NAME: Leana Tran DATE: June 16, 2021 TIME: 11:05 AM [facility] MRI BRAIN WO/W IVCONon 06-16 MRI BRAIN WO/W IVCON * * *Final Report* * * DATE OF EXAM: Jun 16 2021 11:27AM [facility] [id number] - MRI BRAIN WO/W IVCON [...] of the brain with and without contrast. 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 Basic Metabolic Panel w/ Ref douglas to MGon 05-20-2021 Anion gap [Moles/Vol] 11 mmol/L 9 - 17 mmol/L [facility] Calcium [Mass/Vol] 9.1 mg/dL 8.6 - 10. 4 mg/dL [facility] Chloride [Moles/Vol] 103 mmol/L 98 - 10 7 mmol/L [facility] CO2 [Moles/Vol] 23 mmol/L 20 - 31 mmol/L [facility] Creatinine [Mass/Vol] 0.74 mg/dL 0.50 - 0.90 mg/dL [facility] GFR >60 >60 mL/min [facility] GFR Non- >60 >60 mL/min [facility] Glucose [Mass/Vol] 101 mg/dL High 70 - 99 mg/dL [facility] Interpretation and review of laboratory results Abnormal [facility] Potassium [Moles/Vol] 3.7 mmol/L 3.7 - 5.3 mmol/L [facility] Sodium [Moles/Vol] 137 mmol/L 135 - 144 mmol/L [facility] Urea nitrogen (BldV) [Mass/Vol] 9 mg/dL 6 - 20 mg/dL [facility] Urea nitrogen/Creatinine (Bld) [Mass ratio] 12 [facility] Brain Natriuretic Peptideon 05-20-2021 Natriuretic peptide B (Bld) [Mass/Vol] 173 pg/mL <300 [facility] Comment on above: An age-independent cutoff point of 300 pg/ml has a 98% negative predictive value excluding acute heart failure. C-Reactive Proteinon 022 CRP [Mass/Vol] mg/L 0.0 - 5.0 mg/L [facility] CBC with Auto Differentialon 05-20-2021 Absolute Eos # 0.18 [facility] th Absolute Immature Granulocyte 0.03 [facility] Absolute Lymph # 1.75 [facility] alth Absolute Richardson # 0.29 [facility] lt Basophils (Bld) [#/Vol] 0.03 10*3/uL [facility] Basophils/100 WBC (Bld) 0 % 0 - 2 % [facility] Eosinophils/100 WBC (Bld) 3 % 1 - 4 % [facility] Hematocrit (Bld) [Volume fraction] 43.8 % 36.3 - 47.1 % [facility] Hemoglobin.gastroint estinal spec 1 Ql (Stl) 14.6 g/dL 11.9 - 15.1 g/dL [facility] Immature granulocytes/100 WBC (Bld) 0 % 0 [facility] Interpretation and review of laboratory results Abnormal [facility] Lymphocytes/100 WBC (Bld) 25 % 24 - 43 % [facility] MCH (RBC) [Entitic mass] 29.0 pg 25.2 - 33.5 pg [facility] MCHC (RBC) [Mass/Vol] 33.3 g/dL 28.4 - 34.8 g/dL [facility] MCV (RBC) [Entitic vol] 86.9 fL 82.6 - 102.9 fL [facility] Monocytes/100 WBC (Bld) 4 % 3 - 12 % [facility] NRBC Automated 0.0 0.0 per 100 WBC [facility] Platelet distribution width (Bld) [Ratio] 11.5 % Low 11.8 - 14.4 % [facility] Platelet mean volume (Bld) [Entitic vol] 9.5 fL 8.1 - 13.5 fL [facility] Platelets (Bld) [#/Vol] 242 10*3/uL [facility] RBC (Bld) [#/Vol] 5.04 10*6/uL 3.95 - 5.11 m/uL [facility] Segmented neutrophils/100 WBC (Bld) 68 % High 36 - 65 % [facility] Segs [facility].67 [facility] [#/Vol] 7.0 10*3/uL [place] [...] without evidence of incarceration. 3. Hepatic steatosis [facility] RIS CONSOLIDATED EXAMINATION: CT OF THE [...] without evidence of incarceration. 3. Hepatic steatosis [employer] Phone: Radiology Study observation (narrative) [employer] Phone: CT ABDOMEN PELVIS WO CONTRAS T Additional Contrast? NoneOrdered By: Jesus Unger on 05-20-2021 [employer] Phone: D-Dimer, Quantitativeon 05-06 D-Dimer, Quant 0.34 [facility] Comment on above: When combined with [...] more prevalent in patients with distal DVT. [facility] Drug screen multi urineon Amphetamine Screen, Ur Negative NEGATIVE [facility] Barbiturate Screen, Ur Negative NEGATIVE [facility] Benzodiazepine Screen, Urine Negative NEGATIVE [facility] Buprenorphine Urine Negative NEGATIVE [facility] Cannabinoid Scrn, Ur Negative NEGATIVE [facility] Cocaine Metabolite, Urine Negative NEGATIVE [facility] [employer] Methadone Screen, Urine Negative NEGATIVE [facility] [employer] Methamphetamine, Urine Negative NEGATIVE [facility] [employer] Opiates, Urine Negative NEGATIVE [facility] th Oxycodone Screen, Ur Negative NEGATIVE [facility] Phencyclidine, Urine Negative NEGATIVE [facility] Propoxyphene, Urine Negative NEGATIVE [facility] Tricyclic Antidepressants, Urine Negative NEGATIVE [facility] Comment on above: Drug screen results are to be used for medical purposes only. All positive results are unconfirmed. Testing for employment or legal uses should be sent to a reference laboratory for confirmation. [facility] EKG 12 LeadOrdered By: Gosia quinn on 05-20-2021 Atrial Rate 51 BPM [facility] Work Phone: P Fenton 56 degrees [facility] Work Phone: P-R Interval 152 ms [facility] Work Phone: Q-T Interval 448 ms [facility] Work Phone: QRS Duration 90 ms [facility] Work Phone: QTc Calculation (Bazett) 412 ms [facility] Work Phone: R Fenton 79 degrees [facility] Work Phone: T Fenton 62 degrees [facility] Work Phone: Ventricular Rate 51 BPM [facility] Work Phone: [facility] Work Phone: EKG 12 Leadon 05-20-2021 Sinus bradycardia wi th sinus arrhythmia T wave abnormality, consider anterior ischemia Abnormal ECG When compared with ECG of 16-APR-2021 20:11, No significant change was found Confirmed by Gosia Rangel MD ([id number]) on 05/20/2021 6:51:52 PM [facility] RADIOLOGY Gosia Rangel MD - 05/20/2021 Sinus bradycardia with sinus arrhythmia T wave abnormality, consider anterior ischemia Abnormal ECG When compared with ECG of 16-APR-2021 20:11, No significant change was found Confirmed by Gosia Rangel MD ([id number]) on 05/20/2021 6:51:52 PM [facility] Work Phone: Laboratory - Chemistry and C hemistry - challengeon 05-20-2021 GFR/1.73 sq M.predicted MDRD (S/P/Bld) [Vol rate/Area] [facility] Comment on above: Average GFR for 30-3 9 years old: 107 mL/min/1.73sq m Chronic Kidney Disease: <60 mL/min/1.73sq m Kidney failure: <15 mL/min/1.73sq m eGFR calculated using average adult body mass. Additional eGFR calculator available at: http://www.[employer]/multiple_crcl_2012.htm Stage 1: Some kidney damage normal GFR [...] [facility] Microscopic Urinalysison - [facility] Bacteria, UA TRACE Abnormal None [facility] Epithelial Cells UA 0 TO 2 [facility] Interpretation and review of laboratory results Abnormal [facility] RBC, UA None [facility] WBC, UA None [facility] No Panel Informationon 05-20 [facility] Sedimentation Rateon 022 Sed Rate 9 [facility] TSH with Reflexon 05-20-2021 TSH Qn 1.20 m[IU]/L [facility] Troponinon 05-20-2021 Troponin, High Sensitivity <6 0 - 14 ng/L [facility] Comment on above: High Sensitivity Troponin values cannot be compared with other Troponin methodologies. Patients with high levels of Biotin oral intake (i.e >5mg/day) may have falsely decreased Troponin levels. Samples collected within 8 hours of biotin intake may require additional information for diagnosis. [facility] Troponin, High Sensitivity <6 0 - 14 ng/L [facility] Comment on above: High Sensitivity Troponin values cannot be compared with other Troponin methodologies. Patients with high levels of Biotin oral intake (i.e >5mg/day) may have falsely decreased Troponin levels. Samples collected within 8 hours of biotin intake may require additional information for diagnosis. Urinalysis with Reflex to Cu ltureon 05-20-2021 Bilirubin Urine Negative NEGATIVE [facility] Color, UA Yellow Yellow [facility] Glucose, Ur Negative NEGATIVE [facility] Interpretation and review of laboratory results Abnormal [facility] Ketones Ql (U) Negative NEGATIVE [facility] Leukocyte esterase Test strip Ql (U) Negative NEGATIVE [facility] Nitrite, Urine Negative NEGATIVE [facility] pH, UA 6.0 [facility] Protein, UA Negative NEGATIVE [facility] Specific Temple, UA <1.005 Low [facility] Turbidity UA Clear Clear [facility] Urine Hgb Negative NEGATIVE [facility] Urobilinogen, Urine Normal Normal [facility] XR CHEST PORTABLEon 05-21-19 No abnormalities not ed. [facility] CONSOLIDATED EXAMINATION: ONE XRAY VIEW OF THE CHEST 05/20/2021 1:33 pm COMPARISON: 04/16/2021 HISTORY: ORDERING SYSTEM PROVIDED HISTORY: chest pain TECHNOLOGIST PROVIDED HISTORY: chest pain FINDINGS: The lungs appear clear. The heart and mediastinal structures are unremarkable. Bony thorax appears normal. Visualized upper abdomen is unremarkable. [facility] CONSOLIDATED Yoel Shabazz MD - 05/20/2021 EXAMINATION: ONE XRAY VIEW OF THE CHEST 05/20/2021 1:33 pm COMPARISON: 04/16/2021 HISTORY: ORDERING SYSTEM PROVIDED HISTORY: chest pain TECHNOLOGIST PROVIDED HISTORY: chest pain FINDINGS: The lungs appear clear. The heart and mediastinal structures are unremarkable. Bony thorax appears normal. Visualized upper abdomen is unremarkable. IMPRESSION: No abnormalities noted. [facility] Work Phone: Radiology Study observation (narrative) [facility] Work Phone: XR CHEST PORTABLEOrdered By: Yoel Shabazz on 05-20-2021 [employer] Phone: Basic Metabolic Panel w/ Ref douglas to MGon 04-16-2021 Anion gap [Moles/Vol] 11 mmol/L 9 - 17 mmol/L [facility] Calcium [Mass/Vol] 9.8 mg/dL 8.6 - 10. 4 mg/dL [facility] Chloride [Moles/Vol] 99 mmol/L 98 - 10 7 mmol/L [facility] CO2 [Moles/Vol] 24 mmol/L 20 - 31 mmol/L [facility] Creatinine [Mass/Vol] 0.85 mg/dL 0.50 - 0.90 mg/dL [facility] GFR >60 >60 mL/min [facility] GFR Non- >60 >60 mL/min [facility] Glucose [Mass/Vol] 97 mg/dL 70 - 99 mg/dL [facility] Interpretation and review of laboratory results Abnormal [facility] Potassium [Moles/Vol] 3.8 mmol/L 3.7 - 5.3 mmol/L [facility] Sodium [Moles/Vol] 134 mmol/L Low 135 - 144 mmol/L [facility] Urea nitrogen (BldV) [Mass/Vol] 9 mg/dL 6 - 20 mg/dL [facility] Urea nitrogen/Creatinine (Bld) [Mass ratio] 11 [facility] C-Reactive Proteinon 022 CRP [Mass/Vol] mg/L 0.0 - 5.0 mg/L [facility] CBC with Auto Differentialon 04-16-2021 Absolute Eos # 0.19 [facility] th Absolute Immature Granulocyte 0.03 [facility] Absolute Lymph # 2.01 [facility] alth Absolute Richardson # 0.47 [facility] Basophils (Bld) [#/Vol] 0.05 10*3/uL [facility] Basophils/100 WBC (Bld) 1 % 0 - 2 % [facility] Eosinophils/100 WBC (Bld) 2 % 1 - 4 % [facility] Hematocrit (Bld) [Volume fraction] 44.1 % 36.3 - 47.1 % [facility] Hemoglobin.gastroint estinal spec 1 Ql (Stl) 14.9 g/dL 11.9 - 15.1 g/dL [facility] Immature granulocytes/100 WBC (Bld) 0 % 0 [facility] Interpretation and review of laboratory results Abnormal [facility] Lymphocytes/100 WBC (Bld) 22 % Low 24 - 43 % [facility] MCH (RBC) [Entitic mass] 29.2 pg 25.2 - 33.5 pg [facility] MCHC (RBC) [Mass/Vol] 33.8 g/dL 28.4 - 34.8 g/dL [facility] MCV (RBC) [Entitic vol] 86.5 fL 82.6 - 102.9 fL [facility] Monocytes/100 WBC (Bld) 5 % 3 - 12 % [facility] NRBC Automated 0.0 0.0 per 100 WBC [facility] Platelet distribution width (Bld) [Ratio] 11.4 % Low 11.8 - 14.4 % [facility] Platelet mean volume (Bld) [Entitic vol] 9.5 fL 8.1 - 13.5 fL [facility] Platelets (Bld) [#/Vol] 265 10*3/uL [facility] RBC (Bld) [#/Vol] 5.10 10*6/uL 3.95 - 5.11 m/uL [facility] Segmented neutrophils/100 WBC (Bld) 70 % High 36 - 65 % [facility] Segs Absolute 6.34 [facility] ([facility]ld) [#/Vol] 9.1 10*3/uL [facility] [...] the liver. Previous cholecystectomy without biliary dilatation. [facility] RIS CONSOLIDATED EXAMINATION: CT OF THE [...] lumbosacral facets and at the sacroiliac joints. [facility] Michael Ewing - 04/16 EXAMINATION: CT OF [...] the liver. Previous cholecystectomy without biliary dilatation. [employer] Phone: Radiology Study observation (narrative) [employer] Phone: CT ABDOMEN PELVIS WO CONTRAS T Additional Contrast? NoneOrdered By: Michael Frausto on 04-16-2021 [employer] Phone: D-Dimer, Quantitativeon 04-05 D-Dimer, Quant 0.37 [facility] Comment on above: When combined with [...] more prevalent in patients with distal DVT. [facility] Hepatic Function Panelon Albumin [Mass/Vol] 4.7 g/dL 3.5 - 5.2 g/dL [facility] Albumin/Globulin [Mass ratio] 1.8 {ratio} [facility] ALP (Bld) [Catalytic activity/Vol] 73 U/L 35 - 104 U/L [facility] [employer] ALT [Catalytic activity/Vol] 24 U/L 5 - 33 U/L [facility] AST [Catalytic activity/Vol] 14 U/L <32 [facility] Bilirubin [Mass/Vol] 0.35 mg/dL 0.3 - 1 .2 mg/dL [facility] [employer] Bilirubin, Indirect Can not be calculated 0.00 - 1.00 mg/dL [facility] Bilirubin.indirect [Mass/Vol] mg/dL <0.31 mg/dL [facility] Free PSA/Total PSA [Mass fraction] 7.3 g/dL 6.4 - 8.3 g/dL [facility] Laboratory - Chemistry and C hemistry - challengeon 04-16-2021 GFR/1.73 sq M.predicted MDRD (S/P/Bld) [Vol rate/Area] [facility] Comment on above: Average GFR for 30-3 9 years old: 107 mL/min/1.73sq m Chronic Kidney Disease: <60 mL/min/1.73sq m Kidney failure: <15 mL/min/1.73sq m eGFR calculated using average adult body mass. Additional eGFR calculator available at: http://www.[employer]/multiple_crcl_2012.htm Stage 1: Some kidney damage normal GFR Stage 2: Mild kidney damage GFR 60-89 Stage 3: Moderate kidney damage GFR 30-59 Stage 4: Severe kidney damage GFR 15-29 Stage 5: Severe kidney damage GFR <15 ESRD - chronic treatment by dialysis or transplant Lipaseon 04-16-2021 Lipase [Catalytic activity/Vol] 29 U/L 13 - 60 U/L [facility] Microscopic Urinalysison - [facility] Bacteria, UA 2+ Abnormal None [facility] Epithelial Cells UA 2 TO 5 [facility] Interpretation and review of laboratory results Abnormal [facility] RBC, UA 0 TO 2 [facility] WBC, UA 2 TO 5 [facility] No Panel Informationon 04-16 [facility] , Urineon Beta HCG ( test) Ql (U) Negative NEGATIVE [facility] Comment on above: Specimens with hCG l evels near the threshold of the test (25 mIU/mL) may give a negative or indeterminate result. In such cases, another test should be performed with a new specimen in 48-72 hours. If early is suspected clinically in this setting, correlation with quantitative serum b-hCG level is suggested. [employer] has confirmed the use of plasma for this test. This has not been cleared or approved by the U.S. Food and Drug Administration. The FDA has determined that such clearance is not necessary. [facility] Sedimentation Rateon 022 Sed Rate 13 mm 0 - 20 mm [facility] Troponinon 04-16-2021 Troponin, High Sensitivity <6 0 - 14 ng/L [facility] Comment on above: High Sensitivity Troponin values cannot be compared with other Troponin methodologies. Patients with high levels of Biotin oral intake (i.e >5mg/day) may have falsely decreased Troponin levels. Samples collected within 8 hours of biotin intake may require additional information for diagnosis. [facility] Urinalysis with Reflex to Cu ltureon 04-16-2021 Bilirubin Urine Negative NEGATIVE [employer] [facility] Color, UA Yellow Yellow [facility] Glucose, Ur Negative NEGATIVE [facility] Interpretation and review of laboratory results Abnormal [facility] Ketones Ql (U) Negative NEGATIVE [facility] Leukocyte esterase Test strip Ql (U) TRACE Abnormal NEGATIVE [facility] Nitrite, Urine Negative NEGATIVE [facility] pH, UA 6.0 [facility] Protein, UA Negative NEGATIVE [facility] Specific Temple, UA 1.015 [facility] Turbidity UA Clear Clear [facility] Urine Hgb Negative NEGATIVE [facility] Urobilinogen, Urine Normal Normal [facility] XR CHEST 1 VIEWon 04-16-2021 Clear lungs. No acut e cardiopulmonary abnormality. [facility] CONSOLIDATED EXAMINATION: ONE XRAY VIEW OF [...] normal limits. No significant thoracic osseous abnormality. [facility] CONSOLIDATED Christy Becerra MD - 04/16/2021 [...] IMPRESSION: Clear lungs. No acute cardiopulmonary abnormality. [employer] Phone: Radiology Study observation (narrative) [facility] [email or web address] Phone: XR CHEST 1 VIEWOrdered By: Arsenio Becerra on 04-16-2021 [facility] [email or web address] Phone: PULMONARY FUNCTION (450)on 0 03-07-2021 PULMONARY FUNCTION (450) [place] [id number] PULMONARY FUNCTION PATIENT NAME: LEANA TRAN : 1985 MED REC NO: [id number] ROOM: ACCOUNT NO: [id number] ADMIT DATE: 03/07/2021 PROVIDER: Moris Alvarado DATE [...] 79% of predicted. MORIS ALVARADO [id number] Doc#: [id number] CC: Normal [facility] [id number] 03-07-2021 SARS-CoV-2 (COVID-19) RNA CHRISTI+probe Ql (Unsp spec) Not detected Normal [facility] Comment on above: Result Comment: Rapid [...] management decisions. Fact sheet for Healthcare Providers: https://www.fda.gov/media/049504/download Fact sheet for Patients: https://www.fda.gov/media/613396/download Methodology: Isothermal Nucleic Acid Amplification Performed By: #### C OVRB #### [facility] [address] [place] [address] Slide Machine Tender: Belén Dale MD Basic Metabolic Panel w/ Ref douglas to MGOrdered By: Araseli Barrett on 11-01-2020 Anion gap [Moles/Vol] 19 mmol/L High 9 - 17 mmol/L [employer] Phone: Calcium [Mass/Vol] 9.4 mg/dL 8.6 - 10. 4 mg/dL [employer] Phone: Chloride [Moles/Vol] 94 mmol/L Low 98 - 10 7 mmol/L [employer] Phone: CO2 [Moles/Vol] 20 mmol/L 20 - 31 mmol/L [employer] Phone: Creatinine [Mass/Vol] 1.2 mg/dL High 0.50 - 0.90 mg/dL [employer] Phone: GFR >60 >60 mL/min [employer] Phone: GFR Non- 51 mL/min Low >60 [facility] Phone: Glucose [Mass/Vol] 217 mg/dL High 70 - 99 mg/dL [employer] Phone: Interpretation and review of laboratory results Abnormal [employer] Phone: Potassium [Moles/Vol] 3.5 mmol/L Low 3.7 - 5.3 mmol/L [facility] Work Phone: Sodium [Moles/Vol] 133 mmol/L Low 135 - 144 mmol/L [facility] Work Phone: Urea nitrogen (BldV) [Mass/Vol] 10 mg/dL 6 - 20 mg/dL [facility] Work Phone: Urea nitrogen/Creatinine (Bld) [Mass ratio] 8 Low [employer] [facility] Work Phone: [facility] Work Phone: CBC Auto DifferentialOrdered By: Araseli Barrett on 11-01-2020 Absolute Eos # <0.03 [employer] [facility] Work Phone: Absolute Immature Granulocyte 0.33 High [facility] Work Phone: Absolute Lymph # 0.80 Low [facility] Work Phone: Absolute Richardson # 0.42 [facility] Work Phone: Basophils (Bld) [#/Vol] 10*3/uL [facility] Work Phone: Basophils/100 WBC (Bld) 0 % 0 - 2 % [facility] Work Phone: Differential Type NOT REPORTED [facility] Work Phone: Eosinophils/100 WBC (Bld) 0 % Low 1 - 4 % [facility] Work Phone: Hematocrit (Bld) [Volume fraction] 42.8 % 36.3 - 47.1 % [facility] Work Phone: Hemoglobin.gastroint estinal spec 1 Ql (Stl) 14.7 g/dL 11.9 - 15.1 g/dL [facility] Work Phone: Immature granulocytes/100 WBC (Bld) 4 % High 0 [facility] Work Phone: Interpretation and review of laboratory results Abnormal [employer] Phone: Lymphocytes/100 WBC (Bld) 9 % Low 24 - 43 % [employer] Phone: MCH (RBC) [Entitic mass] 30.1 pg 25.2 - 33.5 pg [employer] Phone: MCHC (RBC) [Mass/Vol] 34.3 g/dL 28.4 - 34.8 g/dL [employer] Phone: MCV (RBC) [Entitic vol] 87.5 fL 82.6 - 102.9 fL [employer] Phone: Monocytes/100 WBC (Bld) 5 % 3 - 12 % [employer] Phone: NRBC Automated 0.0 0.0 per 100 WBC [employer] Phone: Platelet distribution width (Bld) [Ratio] 11.4 % Low 11.8 - 14.4 % [employer] Phone: Platelet Estimate NOT REPORTED [employer] Phone: Platelet mean volume (Bld) [Entitic vol] 9.4 fL 8.1 - 13.5 fL [employer] Phone: Platelets (Bld) [#/Vol] 207 10*3/uL [employer] Phone: RBC (Bld) [#/Vol] 4.89 10*6/uL 3.95 - 5.11 m/uL [employer] Phone: RBC (Bld) [#/Vol] NOT REPORTED [employer] Phone: Segmented neutrophils/100 WBC (Bld) 82 % High 36 - 65 % [employer] Phone: Segs Absolute 7.82 [employer] Work Phone: WBC (Bld) [#/Vol] 9.4 10*3/uL [employer] Phone: WBC (Bld) [#/Vol] NOT REPORTED [employer] Phone: [employer] Phone: D-Dimer, QuantitativeOrdered By: Araseli Barrett on 11-01-2020 D-Dimer, Quant <0.27 [employer] Work Phone: Comment on above: When combined [...] more prevalent in patients with distal DVT. [employer] Phone: Laboratory - Chemistry and C hemistry - challengeOrdered By: Araseli Barrett on 11-01-2020 GFR/1.73 sq M.predicted MDRD (S/P/Bld) [Vol rate/Area] [employer] Phone: Comment on above: Average GFR for 30-3 9 years old: 107 mL/min/1.73sq m Chronic Kidney Disease: <60 mL/min/1.73sq m Kidney failure: <15 mL/min/1.73sq m eGFR calculated using average adult body mass. Additional eGFR calculator available at: http://[email or web address]/multiple_crcl_2012.htm Stage 1: Some kidney damage normal GFR Stage 2: Mild kidney damage GFR 60-89 Stage 3: Moderate kidney damage GFR 30-59 Stage 4: Severe kidney damage GFR 15-29 Stage 5: Severe kidney damage GFR <15 ESRD - chronic treatment by dialysis or transplant MagnesiumOrdered By: Araseli Barrett on 11-01-2020 Magnesium [Mass/Vol] 1.6 mg/dL 1.6 - 2 .6 mg/dL [facility] Phone: [facility] Phone: TroponinOrdered By: Araseli Barrett on 11-01-2020 Troponin Interp NOT REPORTED [facility] Work Phone: Troponin T NOT REPORTED <0.03 ng/mL [facility] Phone: Troponin, High Sensitivity <6 0 - 14 ng/L [employer] Phone: Comment on above: High Sensitivity Troponin values cannot be compared with other Troponin methodologies. Patients with high levels of Biotin oral intake (i.e >5mg/day) may have falsely decreased Troponin levels. Samples collected within 8 hours of biotin intake may require additional information for diagnosis. [facility] Phone: XR CHEST PORTABLEOrdered By: Araseli Barrett on 11-01-2020 Negative chest. [employer] [facility] Work Phone: EXAMINATION: ONE XRA Y VIEW OF THE CHEST 11/01/2020 2:31 pm COMPARISON: 12/08/2014 HISTORY: ORDERING SYSTEM PROVIDED HISTORY: cough FINDINGS: The lungs are without acute focal process. No effusion or pneumothorax. The cardiomediastinal silhouette is normal. The osseous structures are intact without acute process. [facility] Work Phone: Oswaldo, Mhpn Incoming R adiant Results From [employer] - 11/01/2020 2:41 PM EDT EXAMINATION: ONE XRAY VIEW OF THE CHEST 11/01/2020 2:31 pm COMPARISON: 12/08/2014 HISTORY: ORDERING SYSTEM PROVIDED HISTORY: cough FINDINGS: The lungs are without acute focal process. No effusion or pneumothorax. The cardiomediastinal silhouette is normal. The osseous structures are intact without acute process. IMPRESSION: Negative chest. [facility] Phone: [facility] Phone: [facility] LE[facility] ([id number]) 1985 F Date Time Provider Department 09/15/20 LIS MORAES [facility]AD[facility] During your visit today, we recorded the following information about you: Demi Hazel Pss 09/15/2020 4:44 PM Signed Received MRI Brain report by fax from [facility]. Scanned to patient's chart. Savanna Juarez [...] Encounter Status:Closed by DEMI JOHNSON on 11/17/20 Normal [facility] CNOVon 09-06-2020 CNOV Office Visit (NEADFV ) LEANA TRAN ([id number]) 1985 F Date Time Provider Department 09/06/20 2:00 PM LIS MORAES During your visit today, we recorded the following information about you: Temperature Pulse Blood pressure Weight 97.8 degrees 67/minute 112/73 102.1 kg Height 1.626 m Lis Moraes MD 09/06/2020 3:10 PM Signed PROGRESS NOTE- HEADACHE SERVICE DATE: September 06, 2020 Location: [facility] Participants: patient and provider [...] in frequency but most importantly in severity, 3/. It was like that for several years. [...] Contrast [Con (more content not included)... Normal [facility] Vital Signs Date Time Vital Sign Value Performing Clinician Facility 11-07-2023 10:33-0400 Body height 162.6 cm Christy Painting MD Work Phone: [facility] 11-07-2023 10:33-0400 Body mass index (BMI) [Ratio] 37.93 kg/m2 Christy Painting MD Work Phone: [facility] 11-07-2023 10:33-0400 Body weight 100.25 kg Christy Painting MD Work Phone: [facility] 10-02-2023 14:46-0400 Blood Pressure Location Selma Orzech [facility] 10-02-2023 14:46-0400 Body temperature 98.6 [degF] Selma Orzech [facility] 10-02-2023 14:46-0400 Diastolic blood pressure 84 mm[Hg] Selma Orzech [facility] 10-02-2023 14:46-0400 Heart rate 68 /min Selma Orzech [facility] 10-02-2023 14:46-0400 Respiratory rate 16 /min Selma Orzech [facility] 10-02-2023 14:46-0400 Systolic blood pressure 130 mm[Hg] Selma Orzech [facility] 10-01-2023 09:45-0400 Body height 162.6 cm Fuentes Amaral MD Work Phone: [facility] 10-01-2023 09:45-0400 Body mass index (BMI) [Ratio] 37.82 kg/m2 Fuentes Amaral MD Work Phone: [facility] 10-01-2023 09:45-0400 Body temperature 97 [degF] Fuentes Amaral MD Work Phone: [facility] 10-01-2023 09:45-0400 Body weight 100 kg Fuentes Amaral MD Work Phone: [facility] 10-01-2023 09:45-0400 Diastolic blood pressure 84 mm[Hg] Fuentes Amaral MD Work Phone: [facility] 10-01-2023 09:45-0400 Heart rate 71 /min Fuentes Amaral MD Work Phone: [facility] 10-01-2023 09:45-0400 Respiratory rate 16 /min Fuentes Amaarl MD Work Phone: [facility] 10-01-2023 09:45-0400 SaO2% (BldA) [Mass fraction] 99 % Fuentes Amaral MD Work Phone: [facility] 10-01-2023 09:45-0400 Systolic blood pressure 123 mm[Hg] Fuentes Amaral MD Work Phone: [facility] 05-08-2023 08:47-0400 Body mass index (BMI) [Ratio] 36.9 kg/m2 Sarah Best [employer] Work Phone: [facility] [employer] [facility] 05-08-2023 08:47-0400 Body weight 97.52 kg Sarah Best [employer] Work Phone: [facility] [employer] [facility] 05-08-2023 08:47-0400 Diastolic blood pressure 87 mm[Hg] Sarah Best [employer] [facility] 05-08-2023 08:47-0400 Heart rate 63 /min Sarah Best [employer] Work Phone: [facility] [employer] [facility] 05-08-2023 08:47-0400 Systolic blood pressure 134 mm[Hg] Sarah Best [employer] Work Phone: [facility] 10-02-2022 09:29-0400 Body height 162.6 cm Fuentes Amaral MD Work Phone: [facility] 10-02-2022 09:29-0400 Body temperature 97.7 [degF] Fuentes Amaral MD Work Phone: [facility] 10-02-2022 09:29-0400 Body weight 100.15 kg Fuentes Amaral MD Work Phone: [facility] 10-02-2022 09:29-0400 Diastolic blood pressure 79 mm[Hg] Fuentes Amaral MD Work Phone: [facility] 10-02-2022 09:29-0400 Heart rate 58 /min Fuentes Amaral MD Work Phone: [facility] 10-02-2022 09:29-0400 Respiratory rate 16 /min Fuentes Amaral MD Work Phone: [facility] 10-02-2022 09:29-0400 SaO2% (BldA) [Mass fraction] 99 % Fuentes Amaral MD Work Phone: [facility] 10-02-2022 09:29-0400 Systolic blood pressure 140 mm[Hg] Fuentes Amaral MD Work Phone: [facility] 09-05-2022 08:23-0400 Blood Pressure Location LORAINEJEANETTE BURNHAM [facility] 09-05-2022 08:23-0400 Diastolic blood pressure 79 mm[Hg] LORAINE BURNHAM [facility] 09-05-2022 08:23-0400 Heart rate 60 /min LORAINE BURNHAM [facility] 09-05-2022 08:23-0400 Systolic blood pressure 133 mm[Hg] LORAINE TEJ [facility] 04-03-2022 10:39-0500 Body height 162.6 cm Fuentes Amaral MD Work Phone: [facility] 04-03-2022 10:39-0500 Body temperature 97.9 [degF] Fuentes Amaral MD Work Phone: [facility] 04-03-2022 10:39-0500 Body weight 99.34 kg Fuentes Amaral MD Work Phone: [facility] 04-03-2022 10:39-0500 Diastolic blood pressure 65 mm[Hg] Fuentes Amaral MD Work Phone: [facility] 04-03-2022 10:39-0500 Heart rate 74 /min Fuentes Amaral MD Work Phone: [facility] 04-03-2022 10:39-0500 Respiratory rate 16 /min Fuentes Amaral MD Work Phone: [facility] 04-03-2022 10:39-0500 SaO2% (BldA) [Mass fraction] 98 % Fuentes Amaral MD Work Phone: [facility] 04-03-2022 10:39-0500 Systolic blood pressure 147 mm[Hg] Fuentes Amaral MD Work Phone: [facility] 02-28-2022 08:30-0500 Blood Pressure Location LORAINEJEANETTE BURNHAM [facility] 02-28-2022 08:30-0500 Diastolic blood pressure 83 mm[Hg] LORAINE TEJ [facility] 02-28-2022 08:30-0500 Heart rate 74 /min LORAINE TEJ [facility] 02-28-2022 08:30-0500 Respiratory rate 16 /min LORAINE TEJ [facility] 02-28-2022 08:30-0500 Systolic blood pressure 121 mm[Hg] LORAINE TEJ [facility] 02-10-2022 14:07-0500 Body height 162.6 cm Fuentes Amaral MD Work Phone: [facility] 02-10-2022 14:07-0500 Body temperature 97.9 [degF] Fuentes Amaral MD Work Phone: [facility] 02-10-2022 14:07-0500 Body weight 98.25 kg Fuentes Amaral MD Work Phone: [facility] 02-10-2022 14:07-0500 Diastolic blood pressure 59 mm[Hg] Fuentes Amaral MD Work Phone: [facility] 02-10-2022 14:07-0500 Heart rate 97 /min Fuentes Amaral MD Work Phone: [facility] 02-10-2022 14:07-0500 Respiratory rate 16 /min Fuentes Amaral MD Work Phone: [facility] 02-10-2022 14:07-0500 SaO2% (BldA) [Mass fraction] 99 % Fuentes Amaral MD Work Phone: [facility] 02-10-2022 14:07-0500 Systolic blood pressure 124 mm[Hg] Fuentes Amaral MD Work Phone: [facility] 2021 08:48-0500 Blood Pressure Location LORAINE BURNHAM [facility] 2021 08:48-0500 Diastolic blood pressure 77 mm[Hg] LORAINE BURNHAM [facility] 2021 08:48-0500 Heart rate 81 /min LORAINE BURNHAM [facility] 2021 08:48-0500 Systolic blood pressure 118 mm[Hg] LORAINE BURNHAM [facility] 11-18-2021 13:44-0400 Body height 162.6 cm Fuentes Amaral MD Work Phone: [facility] 11-18-2021 13:44-0400 Body temperature 97.81 [degF] Fuentes Amaral MD Work Phone: [facility] 11-18-2021 13:44-0400 Body weight 101.24 kg Fuentes Amaral MD Work Phone: [facility] 11-18-2021 13:44-0400 Diastolic blood pressure 73 mm[Hg] Fuentes Amaral MD Work Phone: [facility] 11-18-2021 13:44-0400 Heart rate 66 /min Fuentes Amaral MD Work Phone: [facility] 11-18-2021 13:44-0400 Respiratory rate 16 /min Fuentes Amaral MD Work Phone: [facility] 11-18-2021 13:44-0400 SaO2% (BldA) [Mass fraction] 100 % Fuentes Amaral MD Work Phone: [facility] 11-18-2021 13:44-0400 Systolic blood pressure 121 mm[Hg] Fuentes Amaral MD Work Phone: [facility] 11-03-2021 10:37-0400 Body height 162.6 cm Fuentes Amaral MD Work Phone: [facility] 11-03-2021 10:37-0400 Body temperature 97.59 [degF] Fuentes Amaral MD Work Phone: [facility] 11-03-2021 10:37-0400 Body weight 99.97 kg Fuentes Amaral MD Work Phone: [facility] 11-03-2021 10:37-0400 Diastolic blood pressure 63 mm[Hg] Fuentes Amaral MD Work Phone: [facility] 11-03-2021 10:37-0400 Heart rate 59 /min Fuentes Amaral MD Work Phone: [facility] 11-03-2021 10:37-0400 Respiratory rate 16 /min Fuentes Amaral MD Work Phone: [facility] 11-03-2021 10:37-0400 SaO2% (BldA) [Mass fraction] 99 % Fuentes Amaral MD Work Phone: [facility] 11-03-2021 10:37-0400 Systolic blood pressure 120 mm[Hg] Fuentes Amaral MD Work Phone: [facility] 09-27-2021 08:00-0400 Body height 162.6 cm Pulm [place] Work Phone: [facility] 09-27-2021 08:00-0400 Body weight 99.79 kg [place] Work Phone: [facility] 09-21-2021 15:37-0400 Body height 160 cm Ruth Villaseñor MD Work Phone: [facility] 09-21-2021 15:37-0400 Body temperature 97.5 [degF] Ruth Villaseñor MD Work Phone: [facility] 09-21-2021 15:37-0400 Body weight 100.61 kg Ruth Villaseñor MD Work Phone: [facility] 09-21-2021 15:37-0400 Diastolic blood pressure 72 mm[Hg] Ruth Villaseñor MD Work Phone: [facility] 09-21-2021 15:37-0400 Heart rate 72 /min Ruth Villaseñor MD Work Phone: [facility] 09-21-2021 15:37-0400 SaO2% (BldA) [Mass fraction] 97 % Ruth Villaseñor MD Work Phone: [facility] 09-21-2021 15:37-0400 Systolic blood pressure 131 mm[Hg] Ruth Villaseñor MD Work Phone: [facility] 09-19-2021 13:59-0400 Body temperature 98.29 [degF] Landen Timoteo [employer] Work Phone: [facility] 09-19-2021 13:59-0400 Body weight 99.79 kg Landen Mahmood [employer] Work Phone: [facility] 09-19-2021 13:59-0400 Diastolic blood pressure 53 mm[Hg] Landen Mahmood [employer] Work Phone: [facility] 09-19-2021 13:59-0400 Heart rate 70 /min Landen Mahmood [employer] Work Phone: [facility] 09-19-2021 13:59-0400 Respiratory rate 18 /min Landen Mahmood [employer] Work Phone: [facility] 09-19-2021 13:59-0400 SaO2% (BldA) [Mass fraction] 98 % Landen Mahmood [employer] Work Phone: [facility] 09-19-2021 13:59-0400 Systolic blood pressure 128 mm[Hg] Landen Mahmood [employer] Work Phone: [facility] 09-05-2021 15:55-0400 Diastolic blood pressure 50 mm[Hg] Christine Abraham DO Work Phone: [employer] 09-05-2021 15:55-0400 Heart rate 103 /min Christine Abraham DO Work Phone: [employer] [facility] 09-05-2021 15:55-0400 Respiratory rate 28 /min Christine Abraham DO Work Phone: [employer] 09-05-2021 15:55-0400 SaO2% (BldA) [Mass fraction] 96 % Christine Abraham DO Work Phone: [employer] 09-05-2021 15:55-0400 Systolic blood pressure 115 mm[Hg] Christine Abraham DO Work Phone: [employer] 09-05-2021 13:29-0400 Body height 162.6 cm Christine Abraham DO Work Phone: [facility] [facility] 09-05-2021 13:29-0400 Body mass index (BMI) [Ratio] 37.25 kg/m2 Christine Abraham DO Work Phone: [facility] 09-05-2021 13:29-0400 Body temperature 98.2 [degF] Christine Abraham DO Work Phone: [facility] 09-05-2021 13:29-0400 Body weight 98.43 kg Christine Abraham DO Work Phone: [facility] 08-15-2021 08:54-0400 Body height 162.6 cm Berlin Avila III, MD Work Phone: [facility] 08-15-2021 08:54-0400 Body weight 98.84 kg Berlin Avila III, MD Work Phone: [facility] 08-12-2021 10:00-0400 Body height 162.6 cm [employer] Officer Work Phone: [facility] 08-12-2021 10:00-0400 Body weight 98 kg [employer] Enforcement Officer Work Phone: [facility] 08-12-2021 10:00-0400 Diastolic blood pressure 72 mm[Hg] Code Enforcement Officer Work Phone: [facility] 08-12-2021 10:00-0400 Heart rate 79 /min [employer] Enforcement Officer Work Phone: [facility] 08-12-2021 10:00-0400 Systolic blood pressure 108 mm[Hg] Code Enforcement Officer Work Phone: [facility] 07-25-2021 09:30-0400 Body height 162.6 cm Henny Rushing MD Work Phone: [facility] 07-25-2021 09:30-0400 Body temperature 97.2 [degF] Henny Rushing MD Work Phone: [facility] 07-25-2021 09:30-0400 Body weight 97.48 kg Henny Rushing MD Work Phone: [facility] 07-25-2021 09:30-0400 Diastolic blood pressure 62 mm[Hg] Henny Rushing MD Work Phone: [facility] 07-25-2021 09:30-0400 Heart rate 83 /min Henny Rushing MD Work Phone: [facility] 07-25-2021 09:30-0400 Respiratory rate 14 /min Henny Rushing MD Work Phone: [facility] 07-25-2021 09:30-0400 SaO2% (BldA) [Mass fraction] 99 % Henny Rushing MD Work Phone: [facility] 07-25-2021 09:30-0400 Systolic blood pressure 104 mm[Hg] Henny Rushing MD Work Phone: [facility] 07-22-2021 14:12-0400 Body height 162.6 cm Yan Bass MD Work Phone: [facility] 07-22-2021 14:12-0400 Body temperature 97.5 [degF] Yan Bass MD Work Phone: [facility] 07-22-2021 14:12-0400 Body weight 97.98 kg Yan Bass MD Work Phone: [facility] 07-22-2021 14:12-0400 Diastolic blood pressure 79 mm[Hg] Yan Bass MD Work Phone: [facility] 07-22-2021 14:12-0400 Heart rate 71 /min Yan Bass MD Work Phone: [facility] 07-22-2021 14:12-0400 Respiratory rate 16 /min Yan Bass MD Work Phone: [facility] 07-22-2021 14:12-0400 SaO2% (BldA) [Mass fraction] 97 % Yan Bass MD Work Phone: [facility] 07-22-2021 14:12-0400 Systolic blood pressure 129 mm[Hg] Yan Bass MD Work Phone: [facility] 07-21-2021 13:36-0400 Respiratory rate 20 /min Sai Perez MD Work Phone: [facility] 07-21-2021 13:36-0400 SaO2% (BldA) [Mass fraction] 100 % Sai Perez MD Work Phone: [facility] 07-21-2021 13:29-0400 Diastolic blood pressure 67 mm[Hg] Sai Perez MD Work Phone: [facility] 07-21-2021 13:29-0400 Heart rate 62 /min Sai Perez MD Work Phone: [facility] 07-21-2021 13:29-0400 Systolic blood pressure 130 mm[Hg] Sai Perez MD Work Phone: [facility] 07-14-2021 10:40-0400 Diastolic blood pressure 75 mm[Hg] Aldo Ann MD Work Phone: [facility] 07-14-2021 10:40-0400 Heart rate 74 /min Aldo Ann MD Work Phone: [facility] 07-14-2021 10:40-0400 SaO2% (BldA) [Mass fraction] 98 % Aldo Ann MD Work Phone: [facility] 07-14-2021 10:40-0400 Systolic blood pressure 128 mm[Hg] Aldo Ann MD Work Phone: [facility] 07-06-2021 12:39-0400 Body height 162.6 cm Tracee Mcintyre MD Work Phone: [facility] 07-06-2021 12:39-0400 Body weight 97.52 kg Tracee Mcintyre MD Work Phone: [facility] 07-06-2021 12:39-0400 Diastolic blood pressure 68 mm[Hg] Tracee Mcintyre MD Work Phone: [facility] 07-06-2021 12:39-0400 Heart rate 61 /min Tracee Mcintyre MD Work Phone: [facility] 07-06-2021 12:39-0400 Respiratory rate 16 /min Tracee Mcintyre MD Work Phone: [facility] 07-06-2021 12:39-0400 SaO2% (BldA) [Mass fraction] 99 % Tracee Mcintyre MD Work Phone: [facility] 07-06-2021 12:39-0400 Systolic blood pressure 111 mm[Hg] Tracee Mcintyre MD Work Phone: [facility] 07-01-2021 10:02-0400 Body height 162.6 cm Yan Bass MD Work Phone: [facility] 07-01-2021 10:02-0400 Body temperature 97.59 [degF] Yan Bass MD Work Phone: [facility] 07-01-2021 10:02-0400 Body weight 97.98 kg Yan Bass MD Work Phone: [facility] 07-01-2021 10:02-0400 Diastolic blood pressure 97 mm[Hg] Yan Bass MD Work Phone: [facility] 07-01-2021 10:02-0400 Heart rate 87 /min Yan Bass MD Work Phone: [facility] 07-01-2021 10:02-0400 Respiratory rate 16 /min Yan Bass MD Work Phone: [facility] 07-01-2021 10:02-0400 SaO2% (BldA) [Mass fraction] 99 % Yan Bass MD Work Phone: [facility] 07-01-2021 10:02-0400 Systolic blood pressure 138 mm[Hg] Yan Bass MD Work Phone: [facility] 06-27-2021 11:45-0400 Diastolic blood pressure 70 mm[Hg] Peter Knight APRN.[employer] Work Phone: [facility] 06-27-2021 11:45-0400 Heart rate 96 /min Peter Knight APRN.[employer] Work Phone: [facility] 06-27-2021 11:45-0400 Respiratory rate 20 /min Peter Knight APRN.[employer] Work Phone: [facility] 06-27-2021 11:45-0400 SaO2% (BldA) [Mass fraction] 99 % Peter Knight [employer] Work Phone: [facility] 06-27-2021 11:45-0400 Systolic blood pressure 147 mm[Hg] Peter Knight APRN.[facility] Work Phone: [facility] 06-27-2021 11:30-0400 Body temperature 98.1 [degF] Peter Knight APRN.[employer] Work Phone: [facility] 06-27-2021 10:53-0400 Body height 162.6 cm Peter Knight APRN.[facility] Work Phone: [facility] 06-27-2021 10:53-0400 Body weight 95.71 kg Peter Knight APRN.[facility] Work Phone: [facility] 06-21-2021 01:00-0400 Diastolic blood pressure 84 mm[Hg] Saen Andes DO Work Phone: [facility] 06-21-2021 01:00-0400 Heart rate 87 /min Sean Andes DO Work Phone: [facility] 06-21-2021 01:00-0400 Respiratory rate 21 /min Sean Andes DO Work Phone: [facility] 06-21-2021 01:00-0400 SaO2% (BldA) [Mass fraction] 90 % Sean Andes DO Work Phone: [facility] 06-21-2021 01:00-0400 Systolic blood pressure 121 mm[Hg] Sean Andes DO Work Phone: [facility] [place] 06-21-2021 00:04-0400 Body temperature 98.6 [degF] Sean Andes DO Work Phone: [facility] 06-14-2021 09:07-0400 Body height 162.6 cm Jackelyn Marques MD Work Phone: [facility] 06-14-2021 09:07-0400 Body weight 96.66 kg Jackelyn Marques MD Work Phone: [facility] 06-14-2021 09:07-0400 Diastolic blood pressure 80 mm[Hg] Jackelyn Marques MD Work Phone: [facility] 06-14-2021 09:07-0400 Heart rate 71 /min Jackelyn Marques MD Work Phone: [facility] 06-14-2021 09:07-0400 Systolic blood pressure 126 mm[Hg] Jackelyn Marques MD Work Phone: [facility] 06-10-2021 09:45-0400 Body height 162.6 cm Yan Bass MD Work Phone: [facility] 06-10-2021 09:45-0400 Body temperature 97.39 [degF] Yan Bass MD Work Phone: [facility] 06-10-2021 09:45-0400 Body weight 97.61 kg Yan Bass MD Work Phone: [facility] 06-10-2021 09:45-0400 Diastolic blood pressure 50 mm[Hg] Yan Bass MD Work Phone: [facility] 06-10-2021 09:45-0400 Heart rate 64 /min Yan Bass MD Work Phone: [facility] 06-10-2021 09:45-0400 Respiratory rate 16 /min Yan Bass MD Work Phone: [facility] 06-10-2021 09:45-0400 SaO2% (BldA) [Mass fraction] 100 % Yan Bass MD Work Phone: [facility] 06-10-2021 09:45-0400 Systolic blood pressure 124 mm[Hg] Yan Bsas MD Work Phone: [facility] 06-04-2021 19:43-0400 Diastolic blood pressure 49 mm[Hg] Brian Santana MD Work Phone: [facility] 06-04-2021 19:43-0400 Heart rate 69 /min Brian Santana MD Work Phone: [facility] 06-04-2021 19:43-0400 Respiratory rate 23 /min Brian Santana MD Work Phone: [facility] 06-04-2021 19:43-0400 SaO2% (BldA) [Mass fraction] 92 % Brian Santana MD Work Phone: [facility] 06-04-2021 19:43-0400 Systolic blood pressure 106 mm[Hg] Brian Santana MD Work Phone: [facility] 06-04-2021 16:26-0400 Body mass index (BMI) [Ratio] 36.22 kg/m2 Brian Santana MD Work Phone: [facility] 06-04-2021 16:26-0400 Body temperature 98.4 [degF] Brian Santana MD Work Phone: [facility] 06-04-2021 16:26-0400 Body weight 95.71 kg Brian Santana MD Work Phone: [facility] [employer] 05-20-2021 18:43-0400 Diastolic blood pressure 51 mm[Hg] Cas Dowell MD Work Phone: [facility] 05-20-2021 18:43-0400 Heart rate 53 /min Cas Dowell MD Work Phone: [facility] 05-20-2021 18:43-0400 Respiratory rate 16 /min Cas Dowell MD Work Phone: [facility] 05-20-2021 18:43-0400 SaO2% (BldA) [Mass fraction] 96 % Cas Dowell MD Work Phone: [facility] 05-20-2021 18:43-0400 Systolic blood pressure 112 mm[Hg] Cas Doewll MD Work Phone: [facility] 05-20-2021 12:55-0400 Body height 162.6 cm Cas Dowell MD Work Phone: [facility] 05-20-2021 12:55-0400 Body mass index (BMI) [Ratio] 36.22 kg/m2 Cas Dowell MD Work Phone: [facility] 05-20-2021 12:55-0400 Body weight 95.71 kg Cas Dowell MD Work Phone: [facility] 04-16-2021 19:39-0500 Body temperature 97.39 [degF] Mike Stevenson MD [facility] 04-16-2021 19:39-0500 Diastolic blood pressure 89 mm[Hg] Mike Stevenson MD [facility] 04-16-2021 19:39-0500 Heart rate 55 /min Mike Stevenson MD [facility] 04-16-2021 19:39-0500 Respiratory rate 15 /min Mike Stevenson MD [facility] 04-16-2021 19:39-0500 SaO2% (BldA) [Mass fraction] 98 % Mike Stevenson MD [facility] 04-16-2021 19:39-0500 Systolic blood pressure 131 mm[Hg] Mike Stevenson MD [facility] 11-01-2020 17:24-0400 SaO2% (BldA) [Mass fraction] 94 % Araseli Barrett MD Work Phone: [facility] Work Phone: 11-01-2020 16:20-0400 Diastolic blood pressure 73 mm[Hg] Araseli Barrett MD Work Phone: [facility] Work Phone: 11-01-2020 16:20-0400 Systolic blood pressure 142 mm[Hg] Araseli Barrett MD Work Phone: [facility] Work Phone: 11-01-2020 15:48-0400 Body temperature 101.61 [degF] Araseli Barrett MD Work Phone: [facility] Work Phone: 11-01-2020 13:32-0400 Body mass index (BMI) [Ratio] 37.76 kg/m2 Araseli Barrett MD Work Phone: [facility] Work Phone: 11-01-2020 13:32-0400 Body weight 99.79 kg Araseli Barrett MD Work Phone: [facility] Work Phone: 11-01-2020 13:32-0400 Heart rate 91 /min Araseli Barrett MD Work Phone: [facility] Work Phone: 11-01-2020 13:32-0400 Respiratory rate 22 /min Araseli Barrett MD Work Phone: [facility] Work Phone: 06-13-2020 05:10-0400 Diastolic blood pressure 73 mm[Hg] Kody Cm MD Work Phone: [facility] Work Phone: 06-13-2020 05:10-0400 Systolic blood pressure 131 mm[Hg] Kody Cm MD Work Phone: [facility] Work Phone: 06-13-2020 05:09-0400 Body temperature 96.8 [degF] Kody Cm MD Work Phone: [facility] Work Phone: 06-13-2020 05:09-0400 Heart rate 74 /min Kody Cm MD Work Phone: [facility] Work Phone: 06-13-2020 05:09-0400 Respiratory rate 12 /min Kody Cm MD Work Phone: [facility] Work Phone: 06-13-2020 05:09-0400 SaO2% (BldA) [Mass fraction] 97 % Kody Cm MD Work Phone: [facility] Work Phone: Encounters Encounter Date Encounter Type Care Provider Facility Start: 11-07-2023 End: 11-07-2023 Zaida Painting MD Work Phone: [facility] Start: 11-07-2023 End: 11-07-2023 Zaida Painting MD Work Phone: [facility] Start: 11-07-2023 End: 11-07-2023 Telephone encounter Christy Painting MD Work Phone: [facility] Start: 11-07-2023 End: 11-07-2023 Office outpatient new 60 minutes Christy Painting MD Work Phone: [facility] Comment on above: Severe persistent as thma with (acute) exacerbation (CMS/HCC) (Primary Dx); Allergic reaction, subsequent encounter; Gastroesophageal reflux disease without esophagitis; Vocal cord dysfunction Start: 11-07-2023 End: 11-07-2023 ambulatory CHRISTY PAINTING Not Available Start: 11-06-2023 ambulatory STEPHON CRONIN [facility] Start: 10-29-2023 ambulatory Phillip Thomas MD Facility:[facility] Start: 10-15-2023 ambulatory [facility] Start: 10-10-2023 End: 10-10-2023 ambulatory MACRINA WADSWORTH [facility] Start: 10-10-2023 End: 10-10-2023 ambulatory CAS DOWELL Not Available Start: 10-05-2023 ambulatory [facility] Start: 10-02-2023 End: 10-02-2023 ambulatory Selma Choe Facility:[facility] Start: 10-02-2023 End: 10-02-2023 Patient encounter procedure Selma Choe [facility] Start: 10-01-2023 End: 10-01-2023 Office outpatient visit 15 minutes Fuentes Amaral MD Work Phone: Hematology/Oncology Comment on above: 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HCC) (Primary Dx); POTS (postural orthostatic tachycardia syndrome) Start: 10-01-2023 End: 10-01-2023 ambulatory FUENTES AMARAL Facility:[facility] Start: 09-26-2023 End: 09-26-2023 ambulatory CAS DOWELL Not Available Start: 09-19-2023 End: 09-19-2023 ambulatory RUBENS TIM Not Available Start: 09-05-2023 [facility] Start: 08-22-2023 End: 08-22-2023 ambulatory RUBENS GLENROY Not Available Start: 07-30-2023 ambulatory STEPHON CRONIN [facility] Start: 07-10-2023 End: 07-10-2023 ambulatory JODI MAZARIEGOS Not Available Start: 05-08-2023 End: 05-08-2023 ambulatory SARAH BEST [facility] Start: 05-08-2023 End: 05-08-2023 Office outpatient visit 15 minutes Sarah Best [employer]OWER-JANITOR AND CLEANER Work Phone: [facility] Comment on above: 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) Start: 04-09-2023 End: 04-09-2023 ambulatory CAS DOWELL Not Available Start: 03-28-2023 End: 03-28-2023 ambulatory Phillip Thomas MD Facility:[facility] Start: 03-12-2023 Orders Only Cas Horner Work Phone: [facility] Comment on above: Moderate persistent asthma without complication (CMS/HCC) (Primary Dx) Start: 02-13-2023 End: 02-13-2023 ambulatory Tesfaye MASON Facility:[facility] Start: 02-04-2023 Refleonid BUSTOS RN-JANITOR AND CLEANER Work Phone: [facility] Start: 01-31-2023 End: 01-31-2023 ambulatory Tesfaye MASON Facility::[id number] Start: 01-24-2023 End: 01-24-2023 ambulatory Phillip Thomas MD Facility[facility] Start: 01-16-2023 End: 01-16-2023 ambulatory CAS DOWELL Not Available Start: 01-10-2023 ambulatory MACRINA WADSWORTH [facility] Start: 01-04-2023 End: 01-04-2023 ambulatory CAS DOWELL Facility:[facility] Start: 01-01-2023 End: 01-01-2023 ambulatory [facility] Start: 12-19-2022 ambulatory [facility] Facility: [facility] Start: 12-18-2022 End: 12-18-2022 Emergency department [facility] Start: 12-18-2022 ambulatory [facility] Facility: [facility] Start: 11-29-2022 End: 11-29-2022 ambulatory Phillip Thomas MD Facility:[facility] Start: 11-14-2022 End: 11-14-2022 ambulatory MACRINA WADSWORTH [facility] Start: 10-02-2022 End: 10-02-2022 Office outpatient visit 15 minutes Fuentes Amaral MD Work Phone: Hematology/Oncology Comment on above: 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HCC) (Primary Dx); Bleeding disorder (HCC); Coagulopathy (HCC) Start: 09-05-2022 End: 09-05-2022 Patient encounter procedure LORAINE BURNHAM [facility] Start: 06-15-2022 End: 06-16-[address] CAS DOWELL Facility:[facility] Start: 06-05-2022 End: 06-06-[address] DOCTOR CONN Facility:[facility] Start: 05-03-2022 Telephone encounter Meena peter MD Work Phone: Neurology Comment on above: PAP Therapy Follow U p (DOWNLOAD) Start: 04-26-2022 End: 04-26-2022 ambulatory Bhargavi Gadiel HEREDIA Work Phone: Neurology Comment on above: Migraine without aur a and without status migrainosus, not intractable (Primary Dx) Start: 04-26-2022 End: 04-26-2022 Telemedicine consultation with patient Bhargavi Gadiel HEREDIA Work Phone: [facility] Start: 04-17-2022 End: 04-18-2022 [facility] Fuentes Amaral MD Work Phone: Hematology/Oncology Comment on above: 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HCC) (Primary Dx) Start: 04-03-2022 Telephone encounter Meena peter MD Work Phone: Neurology Comment on above: PAP Therapy Follow U p (NOT COMPLIANT NEEDS SD CHIP SENT TO DME ) Start: 04-03-2022 End: 04-03-2022 Office outpatient visit 15 minutes Fuentes Amaral MD Work Phone: Hematology/Oncology Comment on above: 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HCC) (Primary Dx); Bleeding disorder (HCC) Start: 03-29-2022 End: 03-30-2022 ambulatory FUENTES ABAURA Facility[facility] Start: 03-21-2022 Telephone encounter Manda León RN Hematology/Oncology Comment on above: Orders; Appointment Start: 03-16-2022 End: 03-17-2022 ambulatory FUENTES ABHYLAKE Facility:[facility] Start: 02-28-2022 End: 02-28-2022 Patient encounter procedure LORAINE BURNHAM [facility] Start: 02-27-2022 Patient Update Tesfaye Whitman [facility] Home Delivery Comment on above: Patient Update (Medi cation Refill Consent) Start: 02-24-2022 Telephone encounter Bhargavi donaldson PA-C Work Phone: Neurology Comment on above: Referral Request (PA for Ajovy) Start: 02-22-2022 ambulatory Fuentes almonte MD Work Phone: Hematology/Oncology Comment on above: Platelet electrophor esis lab Start: 02-17-2022 Telephone encounter Manda León RN Hematology/Oncology Comment on above: Orders; Question Start: 02-17-2022 End: 02-18-2022 ambulatory CAS [facility]OWELL [facility] Start: 02-17-2022 End: 02-17-2022 Subsequent hospital visit by physician Cas Dowell MD Work Phone: [facility] Start: 02-16-2022 Telephone encounter Manda León RN Hematology/Oncology Comment on above: Orders Start: 02-15-2022 End: 03-15-2022 ambulatory SHAIKH Janet JACOBSON Facility: Start: 02-13-2022 End: 02-13-2022 Patient encounter procedure Meena Grissom MD Work Phone: Neurology Comment on above: No-show for appointm ent (Primary Dx) Start: 02-13-2022 End: 02-13-2022 Telemedicine consultation with patient Meena Grissom MD Work Phone: [facility] Start: 02-10-2022 End: 02-10-2022 Visit (SP) Office Fuentes Amaral MD Work Phone: Hematology/Oncology Comment on above: 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HCC) (Primary Dx); Bleeding disorder (HCC) Start: 02-01-2022 Telephone encounter [facility] Work Phone: Neurology Comment on above: Appointment (Downloa d Pap Therapy Follow Up-) Start: 01-30-2022 End: 01-30-2022 Emergency department patient visit CAS [facility] Start: 01-23-2022 End: 01-23-2022 Patient encounter procedure Marcell Olivia ROMEO [facility] Start: 01-16-2022 End: 01-16-2022 ambulatory Bhargavi Gadiel SERRA-C Work Phone: Neurology Comment on above: Migraine without aur a and without status migrainosus, not intractable (Primary Dx) Start: 01-16-2022 End: 01-16-2022 Telemedicine consultation with patient Bhargavi Gadiel SERRA-C Work Phone: [facility] Start: 01-08-2022 End: 01-11-2022 Evaluation and management of inpatient CHAYO CASILLAS [facility] Start: 01-07-2022 End: 01-07-2022 Emergency department patient visit [facility] Start: 12-24-2021 End: 12-25-[address] BELÉN ANDRADE Facility:[facility] Start: 2021 End: 2021 Patient encounter procedure LORAINE BURNHAM [facility] Start: 12-20-2021 Telephone encounter Dayanna Dominick may [facility] Work Phone: [facility] Comment on above: Results Start: 12-17-2021 Encounter for genera l adult medical examination without abnormal findings DR CAS DOWELL [facility] Start: 12-15-2021 Chart abstracting [facility] Work Phone: Neurology Start: 12-12-2021 End: 12-13-[address] CAS DOWELL Facility:[facility] Start: 12-12-2021 End: 12-13-2021 Encounter for general adult medical examination without abnormal findings DR CAS DOWELL Facility:[facility] Start: 12-06-2021 Orders Only Jaja NANCEC Work Phone: Pulmonary Medicine Comment on above: Moderate persistent asthma without complication (Primary Dx); SOB (shortness of breath); Post-acute sequelae of COVID-19 (PASC) Start: 12-02-2021 End: 12-02-2021 Patient encounter procedure [...] encounter fro m caregiver Farzaneh Steward RN [facility] Start: 11-18-2021 End: 11-18-2021 Visit (SP) Office Fuentes Amaral MD Work Phone: Hematology/Oncology Comment on above: Breast screening (Pr imary Dx); 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HCC) Start: 11-16-2021 End: 11-16-2021 Telephone encounter Meena Grissom MD Work Phone: Neurology Comment on above: 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 (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) KATELIN on CPAP (Primary Dx); RLS (restless legs syndrome); Shift work sleep disorder; Sleep paralysis; 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; History of posttraumatic stress disorder (PTSD); Poor sleep pattern; Poor compliance with CPAP treatment Start: 11-16-2021 End: 11-16-2021 Telemedicine consultation with patient Meena Grissom MD Work Phone: [facility] Start: 11-15-2021 Telephone encounter [facility] Work Phone: Neurology Comment on above: Appointment ([place] d Pap Therapy Follow UP) Start: 11-14-2021 End: 11-14-[address] BELÉN ANDRADE Facility: Start: 11-10-2021 End: 11-11-2021 [facility] Fuentes Amaral MD Work Phone: Hematology/Oncology Comment on above: Breast screening (Pr imary Dx); 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HCC) Start: 11-07-2021 ambulatory Micheal lanier MD Work Phone: Cardiology Comment on above: Cardiac testing Nebulizer tubing Start: 11-03-2021 End: 11-03-2021 Visit (SP) Office Fuentes Amaral MD Work Phone: Hematology/Oncology Comment on above: 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HCC) (Primary Dx); Bleeding disorder (HCC) Genetic testing Start: 10-27-2021 Telephone encounter Fuentes stewart MD Work Phone: Hematology/Oncology Comment on above: Lab Orders Start: 10-24-2021 End: 10-24-2021 ambulatory Henny Rushing MD Work Phone: Allergy Comment on above: Night sweats (Primar y Dx); Lymphadenopathy; Rash and nonspecific skin eruption; Allergic rhinitis, unspecified seasonality, unspecified trigger; Moderate persistent asthma without complication Start: 10-24-2021 End: 10-24-2021 Telemedicine consultation with patient Henyn Rushing MD Work Phone: [facility] Start: 10-20-2021 End: 10-20-2021 ambulatory Micheal Perez MD Work Phone: Cardiology Comment on above: Palpitations (Primar y Dx); Symptomatic bradycardia; Orthostatic lightheadedness; Diffuse pain; Blood pressure instability; Decreased activity tolerance; Orthostatic intolerance; Moderate persistent asthma without complication; Physical deconditioning Start: 10-20-2021 End: 10-20-2021 Telemedicine consultation with patient Micheal Perez MD Work Phone: [facility] Start: 10-19-2021 End: 10-19-2021 ambulatory Bhargavi Ramesh PA-C Work Phone: Neurology Comment on above: Chronic migraine wit hout aura, intractable, without status migrainosus (Primary Dx) Start: 10-19-2021 End: 10-19-2021 Telemedicine consultation with patient Bhargavi Ramesh PA-C Work Phone: [facility] Start: 10-19-2021 End: 10-20-[address] HUSAM KIM Facility: Start: 10-14-2021 End: 10-14-2021 ambulatory Judith Valdes PSYD Work Phone: Neurological [facility] Comment on above: Depression, unspecif ied depression type (Primary Dx); Anxiety; Abnormal involuntary movement Start: 10-14-2021 End: 10-14-2021 Telemedicine consultation with patient Judith Valdes PSYD Work Phone: [facility] Start: 10-12-2021 End: 10-12-2021 ambulatory Ruth Villaseñor MD Work Phone: Rheumatology Comment on above: Malaise and fatigue (Primary Dx); Lymphadenopathy Start: 10-12-2021 End: 10-12-2021 Telemedicine consultation with patient Ruth Villaseñor MD Work Phone: [facility] Start: 09-30-2021 ambulatory Landen Mahmood APR N.JANITOR AND CLEANER Work Phone: Pulmonary Medicine Comment on above: Breast testing Start: 09-30-2021 End: 09-30-2021 Subsequent hospital visit by physician Xr Chest Main A21 Radiology Comment on above: History of COVID-19 [Z86.16] Start: 09-27-2021 End: 09-27-2021 ambulatory [facility] [place] Work Phone: Pulmonary Lab Comment on above: Spirometry Start: 09-27-2021 End: 09-27-2021 Patient encounter procedure Pulm [facility] [place] Work Phone: [facility] Start: 09-23-2021 ambulatory Landen Mahmood APR N.JANITOR AND CLEANER Work Phone: Pulmonary Medicine Comment on above: Breathing test Start: 09-22-2021 End: 09-23-2021 ambulatory Landen Mahmood APRN.JANITOR AND CLEANER Work Phone: Pulmonary Medicine Comment on above: Ct scan results Start: 09-22-2021 Telephone encounter Landen Mahmood APRN.JANITOR AND CLEANER Work Phone: Pulmonary Medicine Comment on above: Results Start: 09-21-2021 End: 09-21-2021 Patient encounter procedure Ruth Villaseñor MD Work Phone: Rheumatology Comment on above: Bone pain (Primary D x); Malaise and fatigue; Lymphadenopathy Start: 09-21-2021 End: 09-22-[address] CAS DOWELL Facility:[facility] Start: 09-19-2021 End: 09-19-2021 Patient encounter procedure Landen Mahmood APRN.JANITOR AND CLEANER Work Phone: Pulmonary Medicine Comment on above: 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); History of COVID-19; SOB (shortness of breath); Chronic cough; Chest discomfort; Palpitation; CAVANAUGH (dyspnea on exertion); Dizziness; Near syncope; Night sweats; Orthopnea; Anxiety; Myalgia; Pain in joint, multiple sites; Mass of left axilla Start: 09-19-2021 Telephone encounter Landen Mahmood APRN.MACY Work Phone: Pulmonary Medicine Comment on above: 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 Start: 09-16-2021 End: 09-16-2021 ambulatory Judith Valdes PSYD Work Phone: Neurological [facility] Comment on above: Depression, unspecif ied depression type (Primary Dx); Anxiety; Abnormal involuntary movement Start: 09-16-2021 End: 09-16-2021 Telemedicine consultation with patient Judith Valdes PSYD Work Phone: [facility] Start: 09-05-2021 End: 09-05-2021 Emergency department patient visit Christine Jaky Abraham DO Work Phone: [facility] ED Comment on above: Allergic reaction, i nitial encounter (Primary Dx) Start: 08-30-2021 End: 08-30-2021 [facility] Ayaka Bright MD Work Phone: [facility] Comment on above: Long COVID (Primary Dx); Diffuse pain; Decreased activity tolerance; PTSD (post-traumatic stress disorder) CT scan results sent Start: 08-23-2021 Telephone encounter Shelbie Umaña PA-C Work Phone: General Surgery Comment on above: Results - Ct Start: 08-23-2021 End: 08-23-2021 ambulatory Peter Knight APRN.JANITOR AND CLEANER Work Phone: Neurology Comment on above: Diffuse pain (Primar y Dx); Decreased activity tolerance; Physical deconditioning; Orthostatic intolerance Start: 08-23-2021 End: 08-23-2021 Telemedicine consultation with patient Peter Knight APRN.JANITOR AND CLEANER Work Phone: [facility] Start: 08-19-2021 End: 08-19-2021 Subsequent hospital visit by physician [facility] [address] Radiology Comment on above: Chronic RLQ pain [R1 0.31, G89.29] Start: 08-18-2021 ambulatory Mike Zayas MD Work Phone: Kidney [facility] Start: 08-18-2021 Patient encounter procedure Mike Zayas MD Work Phone: [facility] Start: 08-17-2021 ambulatory [facility] Start: 08-17-2021 End: 08-17-2021 Subsequent hospital visit by physician [facility] Echocardiology Testing Comment on above: Symptomatic bradycar aziza [R00.1] Start: 08-16-2021 Orders Only Berlin Avila MD Work Phone: Radiology Comment on above: Chronic RLQ pain (Pr imary Dx) Start: 08-15-2021 Telephone encounter Jenni cassidy RN Work Phone: [facility] Home Delivery Comment on above: Insurance Authorizat ion (Emgality 120MG/ML syringes (migraine)) Start: 08-15-2021 End: 08-15-2021 Patient encounter procedure Berlin Avila MD Work Phone: General Surgery Comment on above: Chronic RLQ pain (Pr imary Dx); Diastasis recti Start: 08-12-2021 End: 08-12-2021 ambulatory Daniela Stewart PT Work Phone: [facility] Comment on above: Intractable chronic migraine without aura and without status migrainosus; Abnormal involuntary movement Start: 08-12-2021 End: 08-12-2021 Patient encounter procedure Code Enforcement Officer Work Phone: Kidney Medicine Main [place] Comment on above: White coat syndrome with hypertension (Primary Dx) Start: 08-05-2021 End: 08-05-2021 ambulatory Bhargavi Ramesh PA-C Work Phone: Neurology Comment on above: Chronic migraine wit hout aura, intractable, without status migrainosus (Primary Dx) Start: 08-05-2021 End: 08-05-2021 Telemedicine consultation with patient Bhargavi Ramesh PA-C Work Phone: [facility] Start: 08-03-2021 End: 08-03-[address] RUBENS TIM . Facility: Start: 07-29-2021 End: 07-29-2021 ambulatory Judith Valdes PSYD Work Phone: Neurological [facility] Comment on above: Depression, unspecif ied depression type (Primary Dx); Anxiety; Intractable chronic migraine without aura and without status migrainosus; Abnormal involuntary movement Start: 07-29-2021 End: 07-29-2021 Telemedicine consultation with patient Judith Valdes PSYD Work Phone: [facility] Start: 07-25-2021 End: 07-25-2021 Patient encounter procedure Henny Rushing MD Work Phone: Allergy Comment on [...] endocr ine disorder Start: 07-15-2021 End: 07-15-2021 [facility] Work Phone: Genetic [facility] Comment on above: Bleeding disorder (H CC) (Primary Dx); Coagulopathy (HCC); 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HCC) Start: 07-14-2021 End: 07-14-2021 Patient encounter procedure Aldo Ann MD Work Phone: Otolaryngology Comment on above: Allergy, initial enc ounter (Primary Dx); Headaches Start: 07-06-2021 End: 07-06-2021 Patient encounter procedure Tracee Mcintyre MD Work Phone: Neurological [facility] Comment on above: Intractable chronic migraine without [...] . Facility: Start: 06-22-2021 ambulatory Peter Knight APRN.JANITOR AND CLEANER Work Phone: Neurology Comment on above: Legs Start: 06-20-2021 End: 06-21-2021 Emergency department patient visit Sean Moses DO Work Phone: [facility] Comment on above: Spasm of muscle (Hannah bhumika Dx); Acute nonspecific chest pain with low risk of coronary artery disease Start: 06-16-2021 Telephone encounter Yan Bass MD Work Phone: Hematology/Oncology Comment on above: Results Start: 06-16-2021 ambulatory PETER KNIGHT Facility :[facility] Start: 06-14-2021 Telephone encounter Jackeyln Lewis i, MD Work Phone: Endocrinology Comment on above: Orders Start: 06-14-2021 End: 06-14-2021 Patient encounter procedure Jackelyn Marques MD Work Phone: Endocrinology Comment on above: Screening for endocr ine disorder (Primary Dx); Primary hypothyroidism Start: 06-14-2021 End: 06-14-2021 ambulatory Autonomic Main Neurology Comment on above: Assessment Start: 06-14-2021 End: 06-14-2021 Patient encounter procedure Autonomic 2 Neur Main [facility] Start: 06-13-2021 ambulatory Peter Knight APRN.JANITOR AND CLEANER Work Phone: Neurology Comment on above: Blood results Start: 06-10-2021 End: 06-10-2021 ambulatory Yan Bass MD Work Phone: Hematology/Oncology Comment on above: Coagulopathy (HCC) ( Primary Dx) Start: 06-10-2021 End: 06-10-2021 Patient encounter procedure Yan Bass MD Work Phone: [place] Start: 06-08-2021 Chart abstracting Yan tran MD Work Phone: Hematology/Oncology Start: 06-04-2021 End: 06-04-2021 Emergency department patient visit Brian Santana MD Work Phone: [facility] Comment on above: Urticaria (Primary D x); Moderate persistent asthma with exacerbation Start: 05-31-2021 Telephone encounter Peter bermeo APRN.JANITOR AND CLEANER Work Phone: Neurology Comment on above: Received Outside Med ical Records ([facility]) Start: 05-20-2021 End: 05-20-2021 Emergency department patient visit Cas Dowell MD Work Phone: [facility] Comment on above: Chest pain, unspecif ied type (Primary Dx); Abdominal pain, acute, right lower quadrant Start: 04-16-2021 End: 04-16-2021 Emergency department patient visit Mike Stevenson MD [facility] Comment on above: Intractable nausea a nd vomiting (Primary Dx); Hydrosalpinx; Left ovarian cyst Start: 03-07-2021 End: 03-08-2021 ambulatory CAS DOWELL [facility] Start: 03-06-2021 End: 03-07-2021 ambulatory CAS DOWELL [facility] Start: 11-01-2020 End: 11-01-2020 Emergency department patient visit Araseli Barrett MD Work Phone: [facility] Comment on above: COVID-19 (Primary Dx ) Start: 06-13-2020 End: 06-13-2020 Emergency department patient visit Kody Cm MD Work Phone: [facility] Comment on above: Strain of lumbar reg ion, initial encounter (Primary Dx) Procedures Date Procedure Procedure Detail Performing Clinician Start: 05-08-2023 Follow-up visit Follow-up SARAH BEST Start: 01-31-2023 Esophagogastroduodenoscopy Selma Choe Start: 01-04-2023 Adult depression screening assessment Stella Flowers FRUIT OR NUT GROWER-JANITOR AND CLEANER Work Phone: Start: 01-01-2023 Hemoglobin glycosylated a1c Cas Dowell MD Work Phone: Start: 02-17-2022 Assay of free thyroxine Akila Yao MD Work Phone: Start: 01-23-2022 Cystourethroscopy with dilation of urethral stricture LORAINE BURNHAM Start: 10-17-2021 Adult depression screening assessment Judith Gutierrezjanet HILLS Work Phone: Start: 10-08-2021 Adult depression screening assessment Ruth Villaseñor MD Work Phone: Start: 09-30-2021 Radiologic exam chest 2 views Landen Mahmood FRUIT OR NUT GROWER.JANITOR AND CLEANER Work Phone: Start: 09-27-2021 End: 09-27-2021 Co diffusing capacity Landen Mahmood FRUIT OR [employer]UT GROWER.J[employer]ITOR AND CLEANER Work Phone: Start: 09-14-2021 Adult depression screening assessment Judith Huertadenise HILLS Work Phone: Start: 08-19-2021 Us pelvic nonobstetric image dcmtn limited/f/u Berlin Avila MD Work Phone: Start: 08-17-2021 Echo tthrc r-t 2d w/wom-mode compl spec&colr d Christy Santos MD Work Phone: Start: 08-17-2021 LVEF ECHO Sai Perez MD Work Phone: Start: 07-29-2021 Adult depression screening assessment [facility] Work Phone: Start: 07-18-2021 Adrenocorticotropic hormone acth Perry Marques MD Work Phone: Start: 07-01-2021 Adrenocorticotropic hormone acth Perry Marques MD Work Phone: Start: 06-29-2021 Adult depression screening assessment Yan Bass MD Work Phone: Start: 06-21-2021 Radiologic exam chest single view Sean Andes DO Work Phone: Start: 06-21-2021 Basic metabolic panel calcium total Sean Andes DO Work Phone: Start: 06-21-2021 Ecg routine ecg w/least 12 lds w/i&r Sean Moses DO Work Phone: Start: 06-20-2021 Adult depression screening assessment Peter Knight FRUIT OR NUT GROWER.JANITOR AND CLEANER Work Phone: Start: 06-04-2021 RESPIRATORY CARE EVALUATION ONLY Brian Santana MD Work Phone: Start: 05-20-2021 Assay of troponin quantitative Shanna Rivas FRUIT OR [employer]UT [employer]OWER - J[employer]ITOR AND CLEANER Work Phone: Start: 05-20-2021 Ct abdomen & pelvis w/o contrast material Shanna Rivas FRUIT OR NUT GROWER - J[employer]ITOR AND CLE[employer]ER Work Phone: Start: 05-20-2021 Drug screen class list a Shanna anguiano FR[employer] OR [employer]OWER - [employer] CLE[employer]ER Work Phone: Start: 05-20-2021 Urinalysis microscopic only Shanna verduzco FRUIT OR NUT [employer]OWER - JANITOR AND CLE[employer]ER Work Phone: Start: 05-20-2021 Urnls dip stick/tablet rgnt auto w/o microscopy Shanna Rivas FRUIT OR [employer]OWER - J[employer]IT[employer] CLE[employer]ER Work Phone: Start: 05-20-2021 Radiologic exam chest single view José jemima Dario Rivas FRUIT OR NUT [employer]OWER - JANITOR AND CLEANER Work Phone: Start: 05-20-2021 Assay of lactate Shanna Rivas FRUIT OR NUT [employer]OWER - JANITOR AND CLE[employer]ER Work Phone: Start: 05-20-2021 BASIC METABOLIC PANEL W/ REFLEX TO MG FOR LOW K Shanna Rivas FRUIT OR [employer]UT [employer]OWER - [employer]ITOR AND CLE[employer]ER Work Phone: Start: 05-20-2021 C-reactive protein Shanna Rivas FRUIT OR [employer]UT [employer]OWER - J[employer]ITOR AND CLEANER Work Phone: Start: 05-20-2021 Ecg routine ecg w/least 12 lds w/i&r Araseli Barrett MD Work Phone: Start: 05-19-2021 Adult depression screening assessment Peter Knight FRUIT OR NUT [employer]OWER.JANITOR AND CLEANER Work Phone: Start: 04-16-2021 Ct abdomen & pelvis w/o contrast material Shanna Rivas FRUIT OR N[employer]OWER - [employer]ER Work Phone: Start: 04-16-2021 Radiologic exam chest single view Adryan Rivas FRUIT OR NUT GROWER - JANITOR AND CLE[employer]ER Work Phone: Start: 04-16-2021 Ecg routine ecg w/least 12 lds w/i&r Shanna Rivas FRUIT OR NUT [employer]OWER - J[employer]ITOR AND CLEANER Work Phone: Start: 04-16-2021 Urinalysis microscopic only Shanna verduzco FRUIT OR NUT GROWER [employer] Work Phone: Start: 04-16-2021 Urine test visual color cmprsn meths Shanna Rivas FRUIT OR NUT GROWER [employer] Work Phone: Start: 04-16-2021 Assay of lipase Shanna Rivas FRUIT OR NUT GROWER - [employer] Work Phone: Start: 04-16-2021 BASIC METABOLIC PANEL W/ REFLEX TO MG FOR LOW K Shanna Rivas FRUIT OR NUT GROWER - J[employer]ITOR AND CLE[employer]ER Work Phone: Start: 04-16-2021 Hepatic function panel Shanna Rivas FRUIT OR NUT GROWER - JANITOR AND CLEANER Work Phone: Start: 02-10-2021 H/O: hysterectomy History of hysterectomy Stella Flowers FRUIT OR NUT GROWER-JANITOR AND CLEANER Work Phone: Start: 11-01-2020 Ecg routine ecg w/least 12 lds w/i&r Araseli Barrett MD Work Phone: Start: 11-01-2020 Assay of magnesium Araseli Barrett MD Work Phone: Start: 11-01-2020 BASIC METABOLIC PANEL W/ REFLEX TO MG FOR LOW K Araseli Barrett MD Work Phone: Start: 11-01-2020 Radiologic exam chest single view Tano Barrett MD Work Phone: Start: 03-17-2019 Fallopian tube excision LORAINE BURNHAM Start: 04-08-2009 Laparoscopic cholecystostomy LORAINE COCHRAN Appendectomy LORAINE BURNHAM section LORAINE BRUCE RRY Colonoscopy Selma Ormiguelina Endometrial ablation Selma Orzech Esophagogastroduodenoscopy A urora Orzech Insertion of cardiac monitoring implant using fluoroscopic guidance Selma Orzech Laparoscopic lysis of adhesions Selma Orzech Ligation of fallopian tube J DELIA BURNHAM Nasal septoplasty LORAINE Olivia ERRGuadalupe Tympanostomy LORAINE BURNHAM Plan of Treatment Date Care Activity Detail Author Start: 09-30-2024 End: 09-30-2024 CBC W Auto Differential panel - Blood COMPLETE BLOOD COUNT AND DIFFERENTIAL Lab Routine 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HCC) Expected: 09/30/2024 (Approximate), Expires: 09/30/2024 [facility] Work Phone: Comment on above: Expected: 09/30/2024 (Approximate), Expi res: 09/30/2024 Start: 09-30-2024 End: 09-30-2024 Comprehensive metabolic 2000 panel - Serum or Plasma COMPREHENSIVE METABOLIC PANEL Lab Routine 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HCC) Expected: 09/30/2024 (Approximate), Expires: 09/30/[address] [facility] Comment on above: Expected: 09/30/2024 (Approximate), Expi res: 09/30/2024 Start: 09-29-2024 End: 09-29-2024 Follow-up encounter 09/29/2024 9:45 AM EDT Visit (SP) Office Hematology/Oncology [address] [place] [address] [place] [address] Fuentes Amaral MD [address] [place], [place] [address] [address] 1 year follow up Hematology/Oncology Comment on above: 1 year follow up Start: 09-29-2024 End: 09-29-2024 Patient encounter procedure 09/29/2024 9:30 AM EDT Office Visit [facility] [address] [place] [address] 1 year follow up [facility] Comment on above: 1 year follow up Start: 07-08-2024 End: 07-08-2024 Patient encounter procedure 07/08/2024 8:30 AM EDT Office Visit [facility] [address] [place] [address] Jodi Mazariegos PA [address] [place] [address] [facility] Start: 05-07-2024 Adult BMI Screening Adult BMI Screening [facility] Start: 05-07-2024 Tobacco Screening Tobacco Screening [facility] Start: 04-12-2024 Urine screening for protein Diabetes: Urine Protein Screening [facility] Start: 02-22-2024 Hemoglobin A1c measurement Diabetes: Hemoglobin A1C [facility] Start: 01-14-2024 End: 01-14-2024 Patient encounter procedure 01/14/2024 9:40 AM EST Office Visit [facility] [address] [place] [phone] Christy Painting MD [address] [place] [address] [facility] Start: 01-09-2024 End: 01-09-2024 Patient encounter procedure 01/09/2024 8:45 AM EST Office Visit [facility] [address] [place] [phone] Cas Dowell MD [address] [place] [phone] [facility] Start: 01-05-2024 Adult BMI Screening Adult BMI Screening [facility] Start: 01-05-2024 Depression Screening Depression Screening [facility] Start: 01-05-2024 Tobacco Screening Tobacco Screening [facility] Start: 11-20-2023 End: 11-20-2023 Patient encounter procedure 11/20/2023 11:20 AM EDT Office Visit [facility] [address] [place] [address] Rubens Tim DO [address] [address] [facility] Start: 11-19-2023 End: 11-19-2023 Patient encounter procedure 11/19/2023 8:45 AM EDT Office Visit [facility] [address] [place] [address] Akila Yao MD 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 Start: 10-07-2023 Influenza vaccination [facility] Start: 10-03-2023 End: 10-03-2023 CBC W Auto Differential panel - Blood CBC + DIFF Lab Routine 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) Coagulopathy (HCC) Expected: 10/03/2023 (Approximate), Expires: 10/03/2023 [facility] Work Phone: Comment on above: Expected: 10/03/2023 (Approximate), Expi res: 10/03/2023 Start: 10-03-2023 End: 10-03-2023 Comprehensive metabolic 2000 panel - Serum or Plasma COMP METABOLIC PANEL Lab Routine 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) Coagulopathy (HCC) Expected: 10/03/2023 (Approximate), Expires: 10/03/2023 [facility] Work Phone: Comment on above: Expected: 10/03/2023 (Approximate), Expi res: 10/03/2023 Start: 07-10-2023 End: 07-10-2023 Patient encounter procedure 07/10/2023 9:00 AM EDT Office Visit [facility] [address] [place] [phone] Jodi Mazariegos, PONCE [address] [place] [address] [facility] Start: 07-05-2023 End: 07-05-2023 Telemedicine consultation with patient 07/05/2023 3:30 PM EDT Telemedicine [facility] [address] [place] [address] Stella Flowers, LIO-JANITOR AND CLEANER [address] [place] [address] [facility] Start: 05-08-2023 End: 05-07-2024 US Thyroid gland Ultrasound thyroid Imaging Routine 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 [facility] [address] [place] [address] [facility] Start: 04-09-2023 End: 04-09-2023 Patient encounter procedure 04/09/2023 8:45 AM EST Office Visit [facility] [address] [place] [phone] Cas Dowell MD [address] [place] [phone] [facility] Start: 04-03-2023 Hemoglobin A1c measurement Diabetes: Hemoglobin A1C [facility] Start: 01-30-2023 GFR test (Diabetes, CKD 3-4, OR last GFR 15-59) GFR test (Diabetes, CKD 3-4, OR last GFR 15-59) [facility] Start: 01-09-2023 Hemoglobin A1c measurement A1C test (Diabetic or Prediabetic) [facility] Start: 10-17-2022 Adult depression screening assessment DEPRESSION SCREENING [facility] Start: 10-08-2022 Adult depression screening assessment DEPRESSION SCREENING [facility] Start: 10-06-2022 Covid-19 Vaccine ( season) Covid-19 Vaccine ( season) [facility] Start: 10-06-2022 Influenza vaccination [facility] Start: 10-01-2022 End: 04-03-2023 CBC W Auto Differential panel - Blood CBC + DIFF Lab Routine 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) Expected: 10/01/2022 (Approximate), Expires: 04/03/2023 [facility] Work Phone: Comment on above: Expected: 10/01/2022 (Approximate), Expi res: 04/03/2023 Start: 10-01-2022 End: 04-03-2023 Comprehensive metabolic 2000 panel - Serum or Plasma COMP METABOLIC PANEL Lab Routine 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) Expected: 10/01/2022 (Approximate), Expires: 04/03/2023 [facility] Work Phone: Comment on above: Expected: 10/01/2022 (Approximate), Expi res: 04/03/2023 Start: 09-14-2022 Adult depression screening assessment DEPRESSION SCREENING [facility] Start: 07-29-2022 Adult depression screening assessment DEPRESSION SCREENING [facility] Start: 06-29-2022 Adult depression screening assessment DEPRESSION SCREENING [facility] Start: 06-21-2022 End: 06-21-2022 Patient encounter procedure 06/21/2022 Office Visit Pulmonology Armando Balderrama DO [address] [phone] [facility] Start: 06-20-2022 Adult depression screening assessment DEPRESSION SCREENING [facility] Start: 05-25-2022 Depression Monitoring Depression Monitoring [facility] Start: 05-19-2022 Adult depression screening assessment DEPRESSION SCREENING [facility] Start: 04-16-2022 Creatinine measurement Creatinine monitoring [facility] Start: 04-16-2022 Potassium monitoring Potassium monitoring [facility] Start: 02-27-2022 End: 02-27-2022 Patient encounter procedure 02/27/2022 Office Visit Pulmonology Nabor Yancey, FRUIT OR NUT GROWER - JANITOR AND CLEANER [address] [phone] [facility] Start: 02-10-2022 End: 04-12-2022 PLATELET TRANSMISSION ELECTRON MICROSCOPIC STUDY PLATELET TRANSMISSION ELECTRON MICROSCOPIC STUDY Lab Routine 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) Expected: 02/10/2022, Expires: 04/12/2022 [facility] Work Phone: Comment on above: Expected: 02/10/2022, Expires: 3 Start: 02-05-2022 DEPRESSION ASSESSMENT DEPRESSION ASSESSMENT [facility] Start: 2021 End: 2021 Patient encounter procedure 2021 Office Visit Pulmonology Armando Balderrama, [address] [facility] [address] [place] [address] [facility] Start: 11-16-2021 End: 01-16-2022 Ferritin [Mass/volume] in Serum or Plasma FERRITIN BLD Lab Routine RLS (restless legs syndrome) Expected: 11/16/2021, Expires: 01/16/2022 [facility] Work Phone: Comment on above: Expected: 11/16/2021, Expires: 2 Start: 11-16-2021 End: 01-16-2022 Iron and Iron binding capacity panel - Serum or Plasma IRON + TIBC Lab Routine RLS (restless legs syndrome) Expected: 11/16/2021, Expires: 01/16/2022 [facility] Work Phone: Comment on above: Expected: 11/16/2021, Expires: 2 Start: 11-01-2021 Creatinine measurement Creatinine monitoring [facility] Work Phone: Start: 11-01-2021 Potassium monitoring Potassium monitoring [facility] Work Phone: Start: 10-06-2021 Influenza vaccination [facility] Start: 09-28-2021 Glaucoma screening Diabetic retinal exam [facility] Start: 09-21-2021 End: 11-21-2021 Phosphate [Mass/volume] in Serum or Plasma [facility] Work Phone: Comment on above: Expected: 09/21/2021, [...] joint, multiple sites Expected: 09/19/2021, Expires: 11/19/2021 [facility] Work Phone: Comment on above: Expected: 09/19/2021, [...] joint, multiple sites Expected: 09/19/2021, Expires: 11/19/2021 [facility] Work Phone: Comment on above: Expected: 09/19/2021, Expires: 2 Start: 09-19-2021 End: 11-19-2021 CARDIOLIPIN IGM ABS CARDIOLIPIN IGM ABS Lab Routine History of COVID-19 Post-acute sequelae of COVID-19 (PASC) SOB (shortness of breath) Chronic cough Chest discomfort Palpitation CAVANAUGH (dyspnea on exertion) Dizziness Near syncope Night sweats Orthopnea Anxiety Myalgia Pain in joint, multiple sites Expected: 09/19/2021, Expires: 11/19/2021 [facility] Work Phone: Comment on above: Expected: 09/19/2021, Expires: 2 Start: 09-19-2021 End: 11-19-2021 CBC panel - Blood by Automated count CBC Lab Routine History of COVID-19 Post-acute sequelae of COVID-19 (PASC) SOB (shortness of breath) Chronic cough Chest discomfort Palpitation CAVANAUGH (dyspnea on exertion) Dizziness Near syncope Night sweats Orthopnea Anxiety Myalgia Pain in joint, multiple sites Expected: 09/19/2021, Expires: 11/19/2021 [facility] Work Phone: Comment on above: Expected: 09/19/2021, [...] joint, multiple sites Expected: 09/19/2021, Expires: 11/19/2021 [facility] Work Phone: Comment on above: Expected: 09/19/2021, [...] joint, multiple sites Expected: 09/19/2021, Expires: 11/19/2021 [facility] Work Phone: Comment on above: Expected: 09/19/2021, Expires: 2 Start: 09-19-2021 End: 11-19-2021 Erythrocyte sedimentation rate SED RATE WESTERGREN Lab Routine History of COVID-19 Post-acute sequelae of COVID-19 (PASC) SOB (shortness of breath) Chronic cough Chest discomfort Palpitation CAVANAUGH (dyspnea on exertion) Dizziness Near syncope Night sweats Orthopnea Anxiety Myalgia Pain in joint, multiple sites Expected: 09/19/2021, Expires: 11/19/2021 [facility] Work Phone: Comment on above: Expected: 09/19/2021, Expires: 2 Start: 09-19-2021 End: 11-19-2021 Fibrin D-dimer FEU [Mass/volume] in Platelet poor plasma D-DIMER Lab Routine History of COVID-19 Post-acute sequelae of COVID-19 (PASC) SOB (shortness of breath) Chronic cough Chest discomfort Palpitation CAVANAUGH (dyspnea on exertion) Dizziness Near syncope Night sweats Orthopnea Anxiety Myalgia Pain in joint, multiple sites Expected: 09/19/2021, Expires: 11/19/2021 [facility] Work Phone: Comment on above: Expected: 09/19/2021, [...] joint, multiple sites Expected: 09/19/2021, Expires: 11/19/2021 [facility] Work Phone: Comment on above: Expected: 09/19/2021, Expires: 2 Start: 09-19-2021 End: 11-19-2021 OMEGACHECK OMEGACHECK Lab Routine History of COVID-19 Post-acute sequelae of COVID-19 (PASC) SOB (shortness of breath) Chronic cough Chest discomfort Palpitation CAVANAUGH (dyspnea on exertion) Dizziness Near syncope Night sweats Orthopnea Anxiety Myalgia Pain in joint, multiple sites Expected: 09/19/2021, Expires: 11/19/2021 [facility] Work Phone: Comment on above: Expected: 09/19/2021, Expires: 2 Start: 09-19-2021 End: 11-19-2021 TMAO TMAO Lab Routine History of COVID-19 Post-acute sequelae of COVID-19 (PASC) SOB (shortness of breath) Chronic cough Chest discomfort Palpitation CAVANAUGH (dyspnea on exertion) Dizziness Near syncope Night sweats Orthopnea Anxiety Myalgia Pain in joint, multiple sites Expected: 09/19/2021, Expires: 11/19/2021 [facility] Work Phone: Comment on above: Expected: 09/19/2021, Expires: 2 Start: 09-19-2021 End: 11-19-2021 TRACE ELEMENTS/TPN TRACE ELEMENTS/TPN Lab Routine History of COVID-19 Post-acute sequelae of COVID-19 (PASC) SOB (shortness of breath) Chronic cough Chest discomfort Palpitation CAVANAUGH (dyspnea on exertion) Dizziness Near syncope Night sweats Orthopnea Anxiety Myalgia Pain in joint, multiple sites Expected: 09/19/2021, Expires: 11/19/2021 [facility] Work Phone: Comment on above: Expected: 09/19/2021, Expires: 2 Start: 09-05-2021 Influenza vaccination Flu vaccine (#1) [facility] Start: 08-24-2021 End: 08-24-2021 Patient encounter procedure 08/24/2021 Office Visit Pulmonology Armando Balderrama, DO [address] [place] [address] [facility] PUL [facility] Start: 07-25-2021 End: 09-24-2021 Complement C3 [Mass/volume] in Serum or Plasma [facility] Work Phone: Comment on above: Expected: 07/25/2021, Expires: 2 Start: 07-25-2021 End: 09-24-2021 Complement C4 [Mass/volume] in Serum or Plasma [facility] Work Phone: Comment on above: Expected: 07/25/2021, Expires: 2 Start: 07-25-2021 End: 09-24-2021 TRYPTASE BLOOD [facility] Work Phone: Comment on above: Expected: 07/25/2021, Expires: 2 Start: 07-05-2021 End: 09-04-2021 Corticotropin [Mass/volume] in Plasma ACTH BLD Lab Routine Screening for endocrine disorder Expected: 07/05/2021, Expires: 09/04/2021 [facility] Work Phone: Comment on above: Expected: 07/05/2021, Expires: 2 Start: 07-05-2021 End: 09-04-2021 Cortisol [Mass/volume] in Serum or Plasma CORTISOL BLD Lab Routine Screening for endocrine disorder Expected: 07/05/2021, Expires: 09/04/2021 [facility] Work Phone: Comment on above: Expected: 07/05/2021, Expires: 2 Start: 07-01-2021 End: 08-31-2021 CBC W Ordered Manual Differential panel - Blood PATHOLOGIST INTERPRETATION WITH CBC AND DIFF Lab Routine Coagulopathy (HCC) 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HCC) Expected: 07/01/2021, Expires: 08/31/2021 [facility] Work Phone: Comment on above: Expected: 07/01/2021, Expires: 2 Start: 07-01-2021 End: 08-31-2021 Fibrinogen [Mass/volume] in Platelet poor plasma by Coagulation assay FIBRINOGEN Lab Routine Coagulopathy (HCC) 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HCC) Expected: 07/01/2021, Expires: 08/31/2021 [facility] Work Phone: Comment on above: Expected: 07/01/2021, Expires: 2 Start: 07-01-2021 End: 08-31-2021 FIBRINOGEN ANTIGEN FIBRINOGEN ANTIGEN Lab Routine Coagulopathy (HCC) 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HCC) Expected: 07/01/2021, Expires: 08/31/2021 [facility] Work Phone: Comment on above: Expected: 07/01/2021, Expires: 2 Start: 07-01-2021 End: 08-31-2021 PLATELET AGGREGATION PANEL PLATELET AGGREGATION PANEL Lab Routine Coagulopathy (HCC) 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HCC) Expected: 07/01/2021, Expires: 08/31/2021 [facility] Work Phone: Comment on above: Expected: 07/01/2021, Expires: 2 Start: 07-01-2021 End: 08-31-2021 PLATELET FUNCTION SCREEN PLATELET FUNCTION SCREEN Lab Routine Coagulopathy (HCC) 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HCC) Expected: 07/01/2021, Expires: 08/31/2021 [facility] Work Phone: Comment on above: Expected: 07/01/2021, Expires: 2 Start: 07-01-2021 End: 08-31-2021 THROMBOGRAPH HEPARINASE PANEL THROMBOGRAPH HEPARINASE PANEL Lab Routine Coagulopathy (HCC) 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HCC) Expected: 07/01/2021, Expires: 08/31/2021 [facility] Work Phone: Comment on above: Expected: 07/01/2021, Expires: 2 Start: 06-27-2021 End: 08-27-2021 Alpha tocopherol [Mass/volume] in Serum or Plasma VITAMIN E/TOCOPHEROL Lab Routine Muscle spasms of lower extremity, unspecified laterality Akathisia Expected: 06/27/2021, Expires: 08/27/2021 [facility] Work Phone: Comment on above: Expected: 06/27/2021, Expires: 2 Start: 06-27-2021 End: 08-27-2021 Ceruloplasmin [Mass/volume] in Serum or Plasma CERULOPLASMIN BLD Lab Routine Muscle spasms of lower extremity, unspecified laterality Akathisia Expected: 06/27/2021, Expires: 08/27/2021 [facility] Work Phone: Comment on above: Expected: 06/27/2021, Expires: 2 Start: 06-27-2021 End: 08-27-2021 CK CREATINE KINASE CK CREATINE KINASE Lab Routine Muscle spasms of lower extremity, unspecified laterality Akathisia Expected: 06/27/2021, Expires: 08/27/2021 [facility] Work Phone: Comment on above: Expected: 06/27/2021, Expires: 2 Start: 06-27-2021 End: 08-27-2021 COPPER, SERUM/PLASMA FREE COPPER, SERUM/PLASMA FREE Lab Routine Muscle spasms of lower extremity, unspecified laterality Akathisia Expected: 06/27/2021, Expires: 08/27/2021 [facility] Work Phone: Comment on above: Expected: 06/27/2021, Expires: 2 Start: 06-27-2021 End: 08-27-2021 FERRITIN BLD FERRITIN BLD Lab Routine Muscle spasms of lower extremity, unspecified laterality Akathisia Expected: 06/27/2021, Expires: 08/27/2021 [facility] Work Phone: Comment on above: Expected: 06/27/2021, Expires: 2 Start: 06-14-2021 End: 08-14-2021 Corticotropin [Mass/volume] in Plasma ACTH BLD Lab Routine Screening for endocrine disorder Expected: 06/14/2021, Expires: 08/14/2021 [facility] Work Phone: Comment on above: Expected: 06/14/2021, Expires: 2 Start: 06-14-2021 End: 08-14-2021 Cortisol [Mass/volume] in Serum or Plasma [facility] Work Phone: Comment on above: Expected: 06/14/2021, Expires: 2 Start: 06-14-2021 End: 08-14-2021 DHEA-S BLD [facility] Work Phone: Comment on above: Expected: 06/14/2021, Expires: 2 Start: 06-10-2021 End: 08-10-2021 APTT INCUBATED MIXING STUDY APTT INCUBATED MIXING STUDY Lab Routine Coagulopathy (HCC) Expected: 06/10/2021, Expires: 08/10/2021 [facility] Work Phone: Comment on above: Expected: 06/10/2021, Expires: 2 Start: 06-10-2021 End: 08-10-2021 Coagulation factor IX activity actual/normal in Platelet poor plasma by Coagulation assay FACTOR IX:C ASSAY Lab Routine Coagulopathy ([facility]) Expected: 06/10/2021, Expires: 08/10/2021 [facility] Work Phone: Comment on above: Expected: 06/10/2021, Expires: 2 Start: 06-10-2021 End: 08-10-2021 Coagulation factor V activity actual/normal in Platelet poor plasma by Coagulation assay FACTOR V:C ASSAY Lab Routine Coagulopathy ([facility]) Expected: 06/10/2021, Expires: 08/10/2021 [facility] Work Phone: Comment on above: Expected: 06/10/2021, Expires: 2 Start: 06-10-2021 End: 08-10-2021 Coagulation factor VIII activity actual/normal in Platelet poor plasma by Coagulation assay FACTOR VIII:C ASSAY Lab Routine Coagulopathy ([facility]) Expected: 06/10/2021, Expires: 08/10/2021 [facility] Work Phone: Comment on above: Expected: 06/10/2021, Expires: 2 Start: 06-10-2021 End: 08-10-2021 Coagulation factor X activity actual/normal in Platelet poor plasma by Coagulation assay FACTOR X:C ASSAY Lab Routine Coagulopathy ([facility]) Expected: 06/10/2021, Expires: 08/10/2021 [facility] Work Phone: Comment on above: Expected: 06/10/2021, Expires: 2 Start: 06-10-2021 End: 08-10-2021 Coagulation factor XI activity actual/normal in Platelet poor plasma by Coagulation assay FACTOR XI:C ASSAY Lab Routine Coagulopathy ([facility]) Expected: 06/10/2021, Expires: 08/10/2021 [facility] Work Phone: Comment on above: Expected: 06/10/2021, Expires: 2 Start: 06-10-2021 End: 08-10-2021 PLATELET AGGREGATION PANEL PLATELET AGGREGATION PANEL Lab Routine Coagulopathy ([facility]) Expected: 06/10/2021, Expires: 08/10/2021 [facility] Work Phone: Comment on above: Expected: 06/10/2021, Expires: 2 Start: 06-10-2021 End: 08-10-2021 PLATELET FUNCTION SCREEN PLATELET FUNCTION SCREEN Lab Routine Coagulopathy ([facility]) Expected: 06/10/2021, Expires: 08/10/2021 [facility] Work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 nanjrbh-uhrwcexbzfua-gfzwl milk, and calcium-fortifiedfruit juice. Calcium-fortified means that calcium has been added to these drinks. ? 8 oz (237 mL) of kefir, yogurt, and soy yogurt. ? 4 oz (114 g) of tofu. ? 1 oz (28 g) of cheese. ? 1 cup (150 g) of dried figs. ? 1 cup (91 g) of cooked broccoli. ? One 3 oz (85 g) can of sardines or mackerel. Most people need 1,000?1,500 mg of calcium a day. Talk to your dietitian about how much calcium is recommended for you. Shopping ? Buy plenty of fresh fruits and vegetables. Most people do not need to avoid fruits and vegetables, even if these foods contain nutrients that may contribute to kidney stones. ? When shopping for convenience foods, choose: ? Whole pieces of fruit. ? Pre-made salads with dressing on the side. ? Low-fat fruit and yogurt smoothies. ? Avoid buying frozen meals or prepared deli foods. These can be high in sodium. ? Look for foods with live cultures, such as yogurt and kefir. ? Choose high-fiber grains, such as whole-wheat breads, oat bran, and wheat cereals. Cooking ? Do not add salt to food when cooking. Place a salt shaker on the table and allow each person to add their own salt to taste. ? Use vegetable protein, such as beans, textured vegetable protein (TVP), or tofu, instead of meat in pasta, casseroles, and soups. Meal planning ? Eat less salt, if told by your dietitian. To do this: ? Avoid eating processed or pre-made food. ? Avoid eating fast food. ? Eat less animal protein, including cheese, meat, poultry, or fish, if told by your dietitian. To do this: ? Limit the number of times you have meat, poultry, fish, or cheese each week. Eat a diet free of meat at least 2 days a week. ? Eat only one serving each day of meat, poultry, fish, or seafood. ? When you prepare animal proteins, cut pieces into small portion sizes. For most meat and fish, one serving is about the size of the palm of your hand. ? Eat at least five servings of fresh fruits and vegetables each day. To do this: ? Keep fruits and vegetables on hand for snacks. ? Eat one piece of fruit or a handful of berries with breakfast. ? Have a salad and fruit at lunch. ? Have two kinds of vegetables at dinner. ? You may be told to limit foods that are high in a substance called oxalate. These include: ? Spinach (cooked), rhubarb, beets, sweet potatoes, and Welsh chard. ? Peanuts. ? Potato chips, slovenian fries, and baked potatoes with skin on. ? Nuts and nut products. ? Chocolate. ? If you regularly take a diuretic medicine, make sure to eat at least 1 or 2 servings of fruits or vegetables that are high in potassium each day. These include: ? Avocado. ? Banana. ? [place], prune, carrot, or tomato juice. ? Baked potato. ? Cabbage. ? Beans and split peas. Lifestyle ? Drink enough fluid to keep your urine pale yellow. This is the most important thing you can do. Spread your fluid intake throughout the day. ? If you drink alcohol: ? Limit how much you have to: ? 0?1 drink a day for women who are not . ? 0?2 drinks a day for men. ? Know how much alcohol is in your drink. In the [place] one drink equals one 12 oz bottle of beer (355 mL), one 5 oz glass of wine (148 mL), or one 1? oz glass of hard liquor (44 mL). ? Lose weight if told by your health care provider. Work with your dietitian to find an eating plan and weight loss strategies that work best for you. General information ? Talk to your health care provider and dietitian about taking daily supplements. Depending on your health and the cause of your kidney stones, you may be told: ? Do not take high-dose supplements of vitamin C (1,000 mg a day or more). ? To take a calcium supplement. ? To take a daily probiotic supplement. ? To take other supplements such as magnesium, fish oil, or vitamin B6. ? Take monh-fro-irvfykj and prescription medicines only as told by your health care provider. These include suppleme (more content not included)... [facility] 10-01-2023 Instructions Fuentes Amaral MD - 10/01/2023 10:04 AM EDT Continue Amicar prior to dental extraction FFP for major surgery. RTC in 12 months - cbc, cmp documented in this encounter [facility] 10-01-2023 History of Present illness Narrative Images from the original note were not included. NAME: Leana Tran CLINIC NO.: [id number] DATE OF SERVICE: October 01, 2023 ([place]) Some elements in this clinic note that are critical to medical decision making have been carefully reviewed and included from a prior clinic note dated: October 02, 2022 ([place]) Additional Clinicians involved in Leana Tran's care: Cas Dowell (PCP), Rajinder Collins (surgery), Rubens Tim (ObGyn), DIAGNOSIS: Undiagnosed bleeding disorder, work-up pending - transition of care. ASSESSMENT: 37 year old with an unclear bleeding disorder [...] prior to dental extraction FFP for major surgery RTC in 12 months - CBC, CMP HPI: CASE HISTORY: Reverse Chronological Order July 2021, above labs repeated with the same result; TEG normal; fibrinogen antigen normal May 2021, PT 10 seconds, PTT 32.7 [...] dose response. Overall, these findings were non-specific. Referred to me in May 2021 for pre-operative clearance prior to elective inguinal hernia repair She has had 2 normal vaginal deliveries with hemorrhage but patient does not remember if any medical or surgical intervention was done. She had a during her third and reports that the surgery took longer than anticipated. Previous bleeding history includes menorrhagia (endometrial ablation [...] had any bleeding issues after that procedure. Patient has an extensive and longstanding history of bleeding issues. In 2008, she was seen by Dr. Shirley and was noted to have an elevated PTT of 36 seconds. This corrected by addition of FFP. 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 She reportedly tested negative for von Willebrand disease. Some of these labs have been scanned in our EMR (2011). Updated Visit, October 01, 2023: Leana returns today for her annual follow up. She denies any bleeding or any need for Amicar since our last visit. Anemia has improved. She has one more tooth that needs to be extracted in the future. She endorses having 3 hernias and having increased her Mestinon for POTS. 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 Will evaluate this further. REVIEW OF SYSTEMS Per HPI and otherwise negative by full review of organ systems. ECOG PERFORMANCE STATUS: 0 PHYSICAL EXAMINATION: Vitals: BP 123/84 Pulse 71 Temp (Src) 97 (Temporal) Resp 16 Ht 5' 4.016 (1.63m) Wt 220 lb 7.4 oz (100.0kg) SpO2 99% LMP 2015 BMI 37.82 kg/(m^2). Body surface area is 2.13 meters squared. Exam limited to gross visualization where appropriate. Gen.: This is an age-appropriate patient in no acute distress. Head: Appears atraumatic with no visible lesions. Eyes: Pupils equally round and reactive to light, extraocular muscles are intact. Neck: Supple. Respiratory: Appears to be respiring comfortably. Neurologic: [...] the axillary tail of her left breast. ALLERGIES: ALLERGIES Allergen Reactions Cefaclor Shortness of Breath, [...] Unknown Skin cracks and bleeds Levofloxacin Rash MEDICATIONS: pyridostigmine (MESTINON) 60 mg tablet Take 180 mg by mouth two times a day. azelastine 0.1% nasal spray SPRAY 1 SPRAY INTO EACH NOSTRIL IN THE MORNING AND BEFORE BEDTIME DIRECTED aminocaproic acid (AMICAR) 500 mg tablet Take 2 tablets by mouth every 6 hours as needed (once prior to dentist and then after for 3-4 doses.) for up to 20 days. CPAP/BIPAP/OTHER Type .CPAPSettings into a note to see current settings/supplies/DME information. DULoxetine (CYMBALTA) 30 mg capsule TAKE 1 CAPSULE BY MOUTH EVERY DAY DO NOT CRUSH OR CHEW Fluticasone Furoate (FLONASE SENSIMIST) 27.5 mcg/actuation nasal spray 1 spray in each nostril levalbuterol tartrate HFA 45 mcg/actuation inhaler Inhale 1-2 Puffs as instructed every 4 hours as needed for wheezing/shortness of breath. SITagliptin (JANUVIA) 100 mg tablet Take 1 tablet by mouth once daily. Magnesium 250 mg tab Take 250 mg by mouth. fremanezumab-vfrm subcutaneus auto-injector 225 mg/1.5 mL (AJOVY) Inject 1.5 mL subcutaneously once every month. Do not shake. UBRELVY 100 mg tablet TAKE 1 TABLET BY MOUTH AT ONSET OF MIGRAINE. MAY REPEAT IN 2 HOURS NEEDED. MAX 2 TABLET IN 24 HOURS cetirizine (ZYRTEC) 10 mg tablet Take 10 mg by mouth as needed. diphenhydrAMINE (BENADRYL) 25 mg tablet Take 50 mg by mouth every 6 hours as needed. zonisamide (ZONEGRAN) 100 mg capsule Take 1 capsule by mouth once daily. rimegepant (NURTEC ODT) 75 mg disintegrating tablet Take 1 tablet by mouth once daily as needed. No more than 1 dose in 24 hours. mecobalamin, vitamin B12, 1,000 mcg ODT once daily. VITAMIN D-3 125 mcg (5,000 unit) tab Take 5,000 Units by mouth once daily. EPINEPHrine 0.1 mg/0.1 mL AutoInjector as needed. lamoTRIgine (LAMICTAL) 150 mg tablet Take 150 mg by mouth daily at bedtime. sertraline (ZOLOFT) 100 mg tablet Take 200 mg by mouth daily at bedtime. levothyroxine (SYNTHROID) 100 mcg tablet Take 100 mcg by mouth daily before breakfast. Takes 1.5 tablets on Wednesdays montelukast (SINGULAIR) 10 mg tablet Take 10 mg by mouth once daily. LABORATORY VALUES: WBC (k/uL) Date Value 10/01/2023 5.75 RBC (m/uL) Date Value 10/01/2023 4.86 Hemoglobin (g/dL) Date Value 10/01/2023 14.7 Hematocrit (%) Date Value 10/01/2023 41.7 MCV (fL) Date Value 10/01/2023 85.8 MCH (pg) Date Value 10/01/2023 30.2 MCHC (g/dL) Date Value 10/01/2023 35.3 RDW-CV (%) Date Value 10/01/2023 11.6 Platelet Count (k/uL) Date Value 10/01/2023 241 MPV (fL) Date Value 10/01/2023 10.0 Glucose (mg/dL) Date Value 10/01/2023 136 (H) BUN (mg/dL) Date Value 10/01/2023 12 Creatinine (mg/dL) Date Value 10/01/2023 1.01 (H) Sodium (mmol/L) Date Value 10/01/2023 138 Potassium (mmol/L) Date Value 10/01/2023 3.9 Chloride (mmol/L) Date Value 10/01/2023 104 CO2 (mmol/L) Date Value 10/01/2023 25 Protein, Total (g/dL) Date Value 10/01/2023 7.1 Albumin (g/dL) Date Value 10/01/2023 4.4 Calcium, Total (mg/dL) Date Value 10/01/2023 9.3 Alkaline Phosphatase (U/L) Date Value 10/01/2023 73 Bilirubin, Total (mg/dL) Date Value 10/01/2023 0.5 AST (U/L) Date Value 10/01/2023 21 ALT (U/L) Date Value 10/01/2023 25 DIAGNOSIS: (D69.1) 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HCC) (primary encounter diagnosis) Plan: COMPLETE BLOOD COUNT AND DIFFERENTIAL, COMPREHENSIVE METABOLIC PANEL (G90.A) POTS (postural orthostatic tachycardia syndrome) PAST MEDICAL HISTORY No date: Arachnoid cyst of pituitary gland No date: Asthma No date: Bulging of cervical intervertebral disc Comment: C4-C7 No date: Cholelithiases 10/2020: COVID-19 No date: Depression No date: GERD (gastroesophageal reflux disease) No date: Hypercoagulable state (HCC) No date: Hypothyroid No date: IBS (irritable bowel syndrome) No date: KATELIN on CPAP No date: Palpitations No date: Platelet disorder (HCC) No date: Protein deficiency (HCC) No date: Pseudopapilledema of both optic discs No date: Pseudotumor cerebri No date: PTSD (post-traumatic stress disorder) PAST SURGICAL HISTORY 2010: ABDOMINAL SURGERY HX Comment: exploration 2008: APPENDECTOMY No date: DELIVERY ONLY No date: HYSTERECTOMY No date: NOSE SURGERY HX Comment: 2010 No date: PAST SURGICAL HISTORY OF Comment: Insertable Storm Chaser No date: REMOVAL GALLBLADDER No date: TUBAL LIGATION HX Social History Tobacco Use Smoking status: Never Passive exposure: Past Smokeless tobacco: Never Vaping Use Vaping status: Never Used Substance Use Topics Alcohol use: Not Currently Drug use: Not Currently FAMILY HISTORY Problem Relation Age of Onset Diabetes Mother uncontrolled Hypertension Mother Heart Attack Mother First [place] at age 51 Cardiomyopathy Mother at age [...] Disease Other I spent a total of 20 minutes on the date of the service which included preparing to see the patient, vsmv-iu-uudk patient care, completing clinical documentation, performing a medically appropriate examination, ordering medications, tests, or procedures, and communicating results to the patient/family/caregiver. Fuentes Amaral MD, CPE Hematology and Oncology Services Provided at: [place], [place] Scribe Attestation: This note was scribed by Yari Fuchs on October 01, 2023 under the direction and supervision of Dr. Fuentes Amaral. I attest that all of the information documented is correct to the best of my knowledge. Provider Attestation: I, Fuentes Amaral MD, attest that all information documented by the above scribe is correct, and was supervised by me and under my direction. CC: Cas Cronin documented in this encounter [facility] 10-01-2023 Note HNO ID: [id number] Author: FUENTES AMARAL MD Service: ? Author Type: Physician Type: Progress Notes Filed: 10/03/2023 07:47 Note Text: NAME: Leana Tran [facility] NO.: [id number] DATE OF SERVICE: October 01, 2023 ([place]unir) Some elements in this clinic note that are critical to medical decision making have been carefully reviewed and included from a prior clinic note dated: October 02, 2022 (Munir) Additional Clinicians involved in Leana Tran's care: Cas Dowell (PCP), Rajinder Collins (surgery), Rubens Tim (ObGyn), DIAGNOSIS: Undiagnosed bleeding disorder, work-up pending - transition of care. ASSESSMENT: 37 year old with an unclear bleeding disorder [...] prior to dental extraction FFP for major surgery RTC in 12 months - CBC, CMP HPI: CASE HISTORY: Reverse Chronological Order July 2021, above labs repeated with the same result; TEG normal; fibrinogen antigen normal May 2021, PT 10 seconds, PTT 32.7 [...] dose response. Overall, these findings were non-specific. Referred to me in May 2021 for pre-operative clearance prior to elective inguinal hernia repair She has had 2 normal vaginal deliveries with hemorrhage but patient does not remember if any medical or surgical intervention was done. She had a during her third and reports that the surgery took longer than anticipated. Previous bleeding history includes menorrhagia (endometrial ablation [...] had any bleeding issues after that procedure. Patient has an extensive and longstanding history of bleeding issues. In 2008, she was seen by Dr. Shirley and was noted to have an elevated PTT of 36 seconds. This corrected by addition of FFP. 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 She reportedly tested negative for von Willebrand disease. Some of these labs have been scanned in our EMR (2011). Updated Visit, October 01, 2023: Leana returns today for her annual follow up. She denies any bleeding or any need for Amicar since our last visit. Anemia has improved. She has one more tooth that needs to be extracted in the future. She endorses having 3 hernias and having increased her Mestinon for POTS. Updated Visit, October 02, 2022: Had a number of teeth removed. Amicar worked for her wisdom tooth but she didn't take it for more recent extractions and it sounds like they needed to us (more content not included)... [facility] 05-08-2023 History of Present illness Narrative REASON [...] 2.48 She has been to referred to [facility] for symptoms from COVID-19. 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 Hx Cesar autoimmune thyroid disease, celiac disease. She underwent an implantable loop recorder for superintendent container terminal cardiac rhythm monitoring due to syncope in June 2022. I saw Leana in follow up November 2022. After this, URI in November and December 2022 she had a upper respiratory infection. BP dropped to 80/40mmhg. But recently BP is stable. In December she experienced an episode of chest pain associated with cough and went to [place] ED (12/18/2022). She was treated for bronchitis. She has history of asthma. She saw Angelika Coronel APRN in the [facility] as an ED follow up on 12/26/2022. At that visit she complained of dizziness, near syncope and sharp left CP radiation to shoulder. Chief Complaint: Orthostatic intolerance. Dizziness and lightheaded. 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 Last [...] diagnosis was Autonomic dysfunction. 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 Problem List Items Addressed This Visit Nervous Autonomic dysfunction Relevant Medications pyridostigmine (Mestinon) 180 mg ER tablet Orthostatic intolerance Relevant Orders Ambulatory referral to Physical Therapy Circulatory Implantable loop recorder present Other Chronic vifw-AYYQX-51 syndrome Other Visit Diagnoses Postural dizziness with near syncope - Primary Relevant Orders Ambulatory referral to Physical Therapy OI exacerbation post back to back respiratory infections. Stop short acting pyridostigmine. Add TS 180 mg daily. Physical therapy. Monitor HR and BP RTC 6-12 months. [facility] 01-04-2023 Note Chief Complaint consultation for GERD HPI Staff 37 year old female presents on consultation from Dr. Dowell for GERD. Taking Protonix 40mg daily x 6 months. Reports some sternal chest pain, bloating and sour taste in mouth. Verbalized manager forms is concerned GERD is contributing to frequent lung infections. Reports EGD greater than 10 years ago with gastric ulcer and H.pylori infection. History of Present Illness 37 yo female with h/o DMII, asthma, hypothyroidism, KATELIN, anxiety/depression; referred for worsening GERD; patient reports frequent bloating and epigastric pain radiating into chest, some regurgitation; no dysphagia; sees a Bilingual Teacher Assistant that feels her frequent lung infections are [...] 50 mcg/inh madeline (more content not included)... [facility] Comment on above: Result Comment: Elec tronically Signed By: MARLON PEREZ, Tesfaye Richard\Date and Time Signed: 01/04/23 11:41 EST 01-01-2023 Note Patient here for [facility] ED 2 weeks ago [...] All other systems reviewed and are negative. [facility] 01-01-2023 Note [place] Electrophysiology Consult Note Reason for visit: s/p loop insertion for syncope, hospital follow up for CP / cough 01/01/23: patient for follow-up, she been having symptoms of postural dizziness with near syncope she has history of dysautonomia typically sees her dysautonomia clinic she was recently seen at [facility] for chest pain loop monitor has not [...] the Heart and Vascular Center at the [facility] for an evaluation of autonomic dysfunction. [...] a PPM . Transferred to [facility] and saw Dr. Michaud, train operations supervisor. Echocardiogram done (?inflammation). Discharged. Referred by Covid Clinic at [facility]. Told had autonomic issues PMH: Past Medical History: Diagnosis Date Asthma 1999 Clotting disorder ([facility]) 1983 Diabetes mellitus ([facility]) 2020 Disease of thyroid gland 2006 PSH: [...] Estradiol Chest hurt (more content not included)... 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 Hx Cesar autoimmune thyroid disease. She underwent an implantable loop recorder for halfway cardiac rhythm monitoring due to syncope in June 2022. She failed bupropion. We then added pyridostigmine in July. Chief Complaint: Improved on pyridostigmine. Improved strength. No nausea or diarrhea. Less dizziness. No syncope. Some near syncope. 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 No sustained palpitations. [...] diagnosis was Autonomic dysfunction. Diagnoses of Chronic slcv-NERLI-18 syndrome and Syncope and collapse were also pertinent to this visit. Date of Telehealth Visit: The patient was notified that using 3rd alliance party telecommunication application (e.g., [employer]) is not HIPPA compliant and may carry some privacy risks. The visit was conducted uaaw-xv-jsni with the use of audio and video [...] to pyridostigmine without ill effects 2. Chronic rxsd-HSKUH-72 syndrome 3. Syncope and collapse No syncope Continue to monitor with ILR. Discussed use of symptom recordings to help identify any rhythm associated with her symptoms RTC yearly [facility] 10-02-2022 Instructions Fuentes Amaral MD - 10/02/2022 9:51 AM EDT Continue Amicar prior to dentist appointment. RTC in 12 months - cbc, cmp documented in this encounter 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 Fuentes Amaral MD, CPE Hematology and Oncology Services Provided at: [place], [place] CC: Cas Cronin documented in this encounter [facility] 09-05-2022 Hospital Discharge instructions Patient Education 09/05/2022 09:06:17 Kidney Stones, Gjjy-ts-Fjrq Kidney Stones Kidney stones are rock-like masses [...] Follow these instructions at home: Medicines Take mtzn-kvm-wiaqqqx and prescription medicines only as told by [...] provider. Document Revised: 09/26/2021 Document Reviewed: 09/26/2021 J C Lads Patient Education 2022 SkillSurvey. Follow Up Care 02/28/2022 09:04:41 With:TEJ HEREDIA, LORAINE Razo, URL Address: [address] [address] When: Unknown [facility] Miscellaneous Notes Images from the original note were not included. documented in this encounter [facility] 04-26-2022 History of Present illness Narrative Headache Center - Follow up Virtual Visit During this COVID-19 pandemic, patient's headache clinic evaluation was scheduled as a virtual visit using the following platform Zoom - patient currently located in [facility] Marc was identified by name and and consented [...] visit. Either the patient or their legal associate sales representative has been informed of the [...] discussed these with the patient: yes Bhargavi Ramesh PA-C HEADACHE SCORES: Headache Questions 10/17/2021 01/13/2022 [...] thrombosis. Unremarkable MRA brain and MRA neck. Construction Engineering Manager: ROBER Transcribe Date/Time: Mar 31 2016 2:40P [...] change which could potentially contribute to headache. Construction Engineering Manager: ROBER Transcribe Date/Time: Jun 27 2021 3:07P [...] # 1.10 - 3.70 k/uL 1.67 Absolute Richardson # 0.10 - 1.20 k/uL 0.37 Absolute Eos # 0.00 - 0.44 k/uL 0.19 Basophils Absolute 0.00 - 0.20 k/uL 0.04 Absolute Immature Granulocyte 0.00 - 0.30 k/uL 0.04 Review of Systems: Review of system: unchanged from the previous visit (sleep patterns, mood, energy, appetite, stress, exercising). Physical Examination: Vital Signs: [facility] 2015 General: well appearing, in no acute distress, alert Pain Behaviors: no pain behaviors observed Neurological: Mental Status: Alert and oriented to person, place and time. Affect is normal. Speech is spontaneous and fluent without dysarthria. Short and halfway memory, cognition and general fund of knowledge [...] of Service: Virtual Visit 15 minutes Bhargavi Ramesh PA-C Headache Section [facility] April 26, 2022 documented in this encounter [facility] 04-17-2022 Instructions Fuentes Amaral MD - 04/17/2022 5:31 PM EDT Keep prior appointment September documented in this encounter [facility] 04-17-2022 History of Present illness Narrative AMBULATORY [...] Fuentes Amaral MD documented in this encounter [facility] 04-03-2022 Instructions Fuentes Amaral MD - 04/03/2022 11:06 AM EST Platelet electron microscopy pending drawn Call results when available - anticipate 2 weeks Consider functional medicine referral for DM and PCOS Keep appointment with Dr. Stephon Cronin's group for POTS Trial of Amicar prior to dentist appointment. documented in this encounter 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 Fuentes Amaral MD, CPE Hematology and Oncology Services Provided at: [place], [place] CC: Cas Szymanski Abel documented in this encounter [facility] 04-03-2022 Nurse Note Patient is still bruising. Elizabeth Rodriges MA documented in this encounter [facility] 04-03-2022 Miscellaneous Notes Images from the original note were not included. documented in this encounter [facility] 03-21-2022 Miscellaneous Notes Received call from pt stating she was not able to get her PLT lab test done in [place] d/t them no longer doing them on or fridays so she needs to move out her appt with Dr Salas so she has time to try again to get lab done. Pt transferred to front desk attendant to reschedule f/u appt. Manda León RN documented in this encounter [facility] 02-28-2022 Hospital Discharge instructions Patient Education 02/28/2022 [...] reconstructed. Follow these instructions at home: Take isje-frz-fuaoyag and prescription medicines only as told by [...] 02/18/2016 Document Revised: 09/04/2018 Document Reviewed: 09/04/2018 J C Lads Patient Education 2019 SkillSurvey. Follow Up Care 12/22/2021 14:08:59 With:LORAINE BURNHAM PA-C, URL Address: [address] [place] [address] When: Unknown [facility] 02-27-2022 History of Present illness Narrative Refill Authorization Consent Leana Tran was encountered by text or mychart message to obtain consent for pharmacist managed refill authorization. Patient gives consent to the authorization of prescriptions by a pharmacist. Tesfaye Whitman RPh 02/27/2022 documented in this encounter [facility] 02-24-2022 Miscellaneous Notes PA submitted via covermymeds. Kurt DUEÑAS MARC ([place]: [id number]) Your information has been submitted to [facility]. To check for an updated outcome later, reopen this PA request from your dashboard. If [facility] has not responded to your request within 24 hours, contact [facility] at . If you think there may be a problem with your PA request, use our live chat feature at the bottom right. Vikash Oreilly RN February 24, 2022 3:16 PM documented in this encounter [facility] 02-20-2022 Miscellaneous Notes Ok with me Informed Lindsey of Dr Salas's response. Lindsey states that [facility] will only except if pt was drawn on and pt was drawn on Sunday so they are sending it out today to [facility], unless Dr Salas would like pt to come back in for a redraw so it can be sent to [facility]. Manda León RN Col[place] would be good. Received call from Melodie at [facility] in [place] stating pt had her platelet transmission lab done there but it is a lab test that they send out to other labs and they wanted to know if Dr Salas has a preference on what lab they send it to d/t different labs running the test different ways. ZACH: Please advise. Manda León RN documented in this encounter [facility] 02-17-2022 Miscellaneous Notes Records faxed to Dr. Cronin. Pt would like referral sent to Stephon Cronin MD @ [facility]. Lauren, will you please fax records when order is signed? Demo in your box, thanks! PSS: Please set pt up with referral to her preferred train operations supervisor. Thank you. Manda León RN Received call from pt stating Dr Salas told her to see train operations supervisor but their office needs a referral. ZACH: Order pending, please review and sign. Manda León RN documented in this encounter [facility] 02-13-2022 History of Present illness Narrative Discussed with scheduling, appointment will be rescheduled. Patient logged in late- had technical issues with Zoom. documented in this encounter [facility] 02-10-2022 Instructions Fuentes Amaral MD - 02/10/2022 3:00 PM EST Platelet electron microscopy Call results when available Consider functional medicine referral for DM and PCOS documented in this encounter 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 Fuentes Amaral MD, CPE Hematology and Oncology Services Provided at: [place], [place] CC: Cas Dowell documented in this encounter [facility] 02-01-2022 Miscellaneous Notes Images from the original note were not included. documented in this encounter [facility] 01-23-2022 Hospital Discharge instructions Patient Education 01/23/2022 [...] Up Care 12/22/2021 14:21:18 With:LORAINE BURNHAM Address: [address] [place] [address] Business (1) When:6 weeks Comments:Call for followup appointment in about six weeks. As discussed, PONCE Hargrove can further follow up on the left kidney abnormality noted on the kidney ultrasound. 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 [facility] 01-16-2022 History of Present illness Narrative Headache [...] discussed these with the patient: yes Bhargavi Ramesh PA-C HEADACHE SCORES: Headache Questions 07/29/2021 10/17/2021 [...] thrombosis. Unremarkable MRA brain and MRA neck. Construction Engineering Manager: ROBER Transcribe Date/Time: Mar 31 2016 2:40P [...] change which could potentially contribute to headache. Construction Engineering Manager: ROBER Transcribe Date/Time: Jun 27 2021 3:07P [...] visit due to nature of virtual visit. [facility] 2015 General: well appearing, in no acute distress, alert Pain Behaviors: no pain behaviors observed Neurological: Mental Status: Alert and oriented to person, place and time. Affect is normal. Speech is spontaneous and fluent without dysarthria. Short and halfway memory, cognition and general fund of knowledge [...] of Service: Virtual Visit 10 minutes Bhargavi Ramesh PA-C Headache Section [facility] January 16, 2022 documented in this encounter [facility] 01-02-2022 History of Present illness Narrative Sleep Study Check-In Documentation Date: January 02, 2022 Name: Leana Tran Patient was accompanied by Self. Location: [place] Latex allergy: Yes Tape allergy: No Current medications were reviewed with the patient:Yes Sleep aid taken by patient for the sleep study: [place] of sleep aid: Not Applicable Procedure was [...] results Jenny Borden documented in this encounter [facility] 2021 Evaluation + Plan note Diagnostic Tests PendingUrine Cytology ([facility]) 12/21/21 [facility] 2021 Hospital Discharge instructions Patient Education [...] Follow these instructions at home: Medicines Take tuij-zio-clmmobj and prescription medicines only as told by [...] or the blood stops without treatment. Take hxfx-hkh-mcshids and prescription medicines only as told by your health care provider. Drink enough fluid to keep your urine clear or pale yellow. This information is not intended to replace advice given to you by your health care provider. Make sure you discuss any questions you have with your health care provider. Document Released: 01/22/2006 Document Revised: 06/18/2019 Document Reviewed: 02/24/2017 J C Lads Patient Education 2020 SkillSurvey. 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 Leana Tran's bleeding disorders panel through [facility] was non-diagnostic or negative for a pathogenic variant. 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 This is a common polymorphism in the general population present in ~10% of individuals of white ancestry and ~1/3 of those of [place] ancestry. This polymorphism is not expected to contribute to disease risk for the patient. Please see [employer] message for further discussion. CARINE Carrillo Licensed, Certified Genetic Counselor [facility] CC: Dr. Fuentes Craig documented in this encounter [facility] 12-15-2021 History of Present illness Narrative ACTIGRAPHY DEVICE # [id number] Date shipped out 12/15/2021 [employer] MAIL OUT TRACKING NUMBER [id number] [employer] RETURN TRACKING NUMBER [id number], Amber documented in this encounter [facility] 12-02-2021 History of Present illness [...] for Diagnosis. IV discontinued at 927 by BRADLY. Staff involved in procedure: Heavenly Thomas RN; Ofelia Allen RN Procedure Finish Time: 933 documented in this encounter [facility] 12-01-2021 Miscellaneous Notes Attempted to contact the patient. Left voice message. Filomena MARIE ----- Message from Micheal Perez MD sent at 11/30/2021 8:33 PM EDT ----- Regarding: Event monitor results. Please call with results. Micheal Perez MD November 30, 2021 8:33 PM documented in this encounter [facility] 11-18-2021 Instructions Fuentes Amaral MD - 11/18/2021 2:09 PM EDT 1. RTC and Repeat exam in 3 months - no labs 2. Review platelet genetics on return. documented in this encounter 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 Fuentes Amaral MD, CPE Hematology and Oncology Services Provided at: [place], [place] CC: Cas Nicoleraj documented in this encounter [facility] 11-16-2021 Instructions Meena Grissom MD - 11/16/2021 [...] depending on your insurance coverage. Contact your [employer]) company for new supplies as needed. Encouraged increased CPAP compliance -PAP titration polysomnogram requested to assess optimum PAP therapy for KATELIN -PAP nap procedure requested to help address mask interface issues To schedule your sleep study please call the [facility] Sleep Disorders Center at [phone]. The [phone] phone number will be answered by the [...] If you work rotating shifts, ask your clinic business manager to schedule a natural, clockwise [...] A longer nap before reporting for a clinical transformation specialist is also beneficial. Exposure to bright light on the job can improve alertness during clinical transformation specialist work. Arrange for someone to pick you up after a clinical transformation specialist, or take a bus or cab home. [...] for insomnia. The cost is $40. Use www.[employer] which to access the [facility] Wellness website to purchase the program ( [...] provider and give them the CPT code: 06849 You will be asked to wear the [...] about your actigraphy device, please call the i&c technician at: [phone] ( During Hours: 8am-4:30pm) ? -Discussed pathophysiology of Sleep paralysis, and possible triggering factors which include sleep deprivation, untreated obstructive sleep apnea. Other possible etiologies include circadian shift work,anxiety disorders and medications. - Follow up in 2 months documented in this encounter [facility] 11-16-2021 Miscellaneous Notes Images from the original note were not included. Images from the original note were not included. documented in this encounter [facility] 11-16-2021 History of Present illness Narrative Images from the original note were not included. [facility] Sleep Disorders Center New Patient Evaluation This [...] on CPAP , her physician is at [facility]. Has a Resmed device, uses it [...] or near accidents due to drowsy drivin [place] Sleepiness Scale 11/13/2021 Score 7 (No daytime [...] (Discontinued) PRIOR SLEEP STUDIES: Sleep centre at [place] (report not available at time of consultation) [...] ^Rfl: fremanezumab-vfrm subcutaneus auto-injector 225 mg/1.5 mL ([employer]MD)^Inject 1.5 mL subcutaneously once every month. Do [...] uncontrolled Hypertension Mother Heart Attack Mother First [place] at age 51 Cardiomyopathy Mother at age [...] If you work rotating shifts, ask your clinic business manager to schedule a natural, clockwise [...] A longer nap before reporting for a clinical transformation specialist is also beneficial. Exposure to bright light on the job can improve alertness during clinical transformation specialist work. Arrange for someone to pick you up after a clinical transformation specialist, or take a bus or cab home. [...] for insomnia. The cost is $40. Use www.[employer] which to access the [facility] Wellness website to purchase the program ( [...] which included preparing to see the patient, [id number] patient care, performing a medically appropriate examination, counseling and educating the patient/family/caregiver and ordering medications/devices. documented in this encounter [facility] 11-15-2021 Miscellaneous Notes Images from the original note were not included. documented in this encounter [facility] 11-12-2021 History of Present illness [...] Fuentes Amaral MD documented in this encounter [facility] 11-07-2021 Miscellaneous Notes Order for nebulizer supplies resent to [employer]. Call to them inquiring about any additional information they may need. Landen Mahmood APRN.MACY documented in this encounter [facility] 11-07-2021 Miscellaneous Notes Contacted [employer]. Order has not been received. Discussed with Javier from [facility] lab. Order is currently being processed. TMauric RN documented in this encounter [facility] 11-03-2021 Instructions Fuentes Amaral MD - 11/03/2021 11:38 AM EDT 1. Need Mammogram results from [facility] 2. Proceed with genetic testing for platelet disorder 3. Call next week to review mammogram results documented in this encounter [facility] 11-03-2021 History of Present illness Narrative Images [...] workup. PLAN: 1. Need Mammogram results from [place] 2. Proceed with genetic testing for platelet [...] which included preparing to see the patient, [id number] patient care, completing clinical documentation, obtaining and/or reviewing separately obtained history, performing a medically appropriate examination, counseling and educating the patient/family/caregiver, ordering medications, tests, or procedures, independently interpreting results (not separately reported) and communicating results to the patient/family/caregiver. Fuentes Amaral MD, CPE Hematology and Oncology Services Provided at: [facility], [place] CC: Cas Grayson documented in this encounter [facility] 10-30-2021 Miscellaneous Notes I don't think I need labs for her. If needed, please add lab orders for appointment on 11/03/21. Sharon Peterson Ma documented in this encounter [facility] 10-24-2021 History of Present illness Narrative VIRTUAL VISIT PROGRESS NOTE This is a virtual visit using [employer] video visit. It required patient-provider interaction for [...] axillary lymphadenopathy. She is also following in [facility] clinic. She has noticed a rash [...] she is following with Pulmonary and [facility] clinic She recently received iodinated contrast with pre-medication and was able to tolerate As per prior HPI: Chronic rhinitis Sinus/lung infections Longstanding history of recurrent pneumonia 1-2 times per year and recurrent sinus infections. Had sinus surgery which helped reduce sinus infections- however she has had 2 infections in the last 2 months. Immunodeficiency evaluation performed by an rag grader in [place] showed protective strep pneumo titers after vaccination [...] at the ER Last December saw an rag grader- skin testing was negative to environmental allergies [...] managed by her family medicine physician and manager forms. Has had 0 ER, hospitalization and ICU [...] uncontrolled Hypertension Mother Heart Attack Mother First [place] at age 51 Cardiomyopathy Mother at age [...] mouth. fremanezumab-vfrm subcutaneus auto-injector 225 mg/1.5 mL ([employer]) Inject 1.5 mL subcutaneously once every month. [...] or contact dermatitis- advise follow-up with local Client Delivery Manager Allergic rhinitis, unspecified seasonality, unspecified trigger Comment/Plan: Well-controlled, continue Flonase and oral antihistamine Moderate persistent asthma without complication Comment/Plan: Controlled, continue follow-up with Pulmonary and Covid-19 [facility] Henny Rushing MD documented in this encounter [facility] 10-20-2021 History of Present illness Narrative Heart[facility] V[facility] Thor[facility] [place] Department of Cardiac Surgery VIRTUAL VIDEO VISIT [...] uncontrolled Hypertension Mother Heart Attack Mother First [place] at age 51 Cardiomyopathy Mother at age [...] 5:26 PM This note was generated using [employer] voice recognition system. Please excuse any typographical errors. I spent 30 minutes with the patient; greater than 50% of the time was spent in counselling and co-ordinating the care based on my impression and plan above. documented in this encounter [facility] 10-19-2021 Instructions Bhargavi Ramesh PA-C - 10/19/2021 2:31 PM EDT Consider restart Botox PREEMPT Protocol Discontinue Emgality Start Ajovy - once monthly - wait until 11/10 to inject the first dose [facility] Home Delivery Pharmacy: [phone] Consider aimovig or vyepti Please follow up in 3 months or sooner if needed documented in this encounter [facility] 10-19-2021 History of Present illness Narrative Headache [...] fluticasone (FLONASE) 50 mcg/actuation nasal spray^Use 1 [place] in each nostril twice daily.^Disp: 3 Each^Rfl: [...] discussed these with the patient: yes Bhargavi Ramesh PA-C HEADACHE SCORES: Headache Questions 06/29/2021 07/29/2021 [...] thrombosis. Unremarkable MRA brain and MRA neck. Construction Engineering Manager: [facility] Transcribe Date/Time: Mar 31 2016 [...] change which could potentially contribute to headache. Construction Engineering Manager: [facility] Transcribe Date/Time: Jun 27 2021 [...] Abs Lymph 1.00 - 4.00 k/uL 1.45 Richardson% % 4.4 Abs Richardson <0.87 k/uL 0.30 Eosin% % 2.5 Abs [...] and fluent without dysarthria. Short and superintendent container terminal memory, cognition and general fund of [...] of Service: Virtual Visit 20 minutes Bhargavi Ramesh PA-C Headache Section [facility] October 19, 2021 documented in this encounter [facility] 10-14-2021 History of Present illness Narrative [facility] Psychology Progress Note Billing codes: Keisha PSYCHOLOGY: FOLLOW-UP APPOINTMENT PROGRESS NOTE- Virtual Visit Due to the federal emergency declaration and the need for ongoing mental health services, the following visit was completed virtually and informed consent obtained orally to reduce the risk of COVID-19 exposure. Oral consent to services related to virtual visits was obtained after information was sent via [employer] or read to patient if Whoishart not available. Leana Tran 10/14/2021 [id number] PROVIDER: Judith Valdes PSYD CPT Code: 3550717 Virtual PSYTX PT &/FAMILY 45 MINS Time [...] Valdes Psy.D. Associate Staff, [facility] documented in this encounter [facility] 10-12-2021 History of Present illness Narrative Images from the original note were not included. Rheumatology Outpatient Clinic Date of Service: 10/12/2021 Patient: Leana Tran Medical Record: [id number] Primary Care Physician: Cas Dowell MD Referring [...] uncontrolled Hypertension Mother Heart Attack Mother First AK at age 51 Cardiomyopathy Mother at age [...] (FLONASE) 50 mcg/actuation nasal spray Use 1 [place] in each nostril twice daily. zonisamide (ZONEGRAN) [...] AM (Final result) Impression: IMPRESSION: See Result. Construction Engineering Manager: ROBER Transcribe Date/Time: Sep 30 2021 2:15P... [...] In certain cases, a referral to a computer system validation specialist may be required, in patients who [...] Villaseñor MD Rheumatology documented in this encounter [facility] 09-30-2021 History of Present illness Narrative Radiology [...] 2021 9:53 AM documented in this encounter [facility] 09-27-2021 History of Present illness Narrative PULM FUNCTION SMARTBLOCK: Provider: Landen Mahmood APRN.JANITOR AND CLEANER Assisting Tech: Yanira Bryson RRT Spirometry w/BD: 1 DLCO: 1 LV - Box: 1 6 MW: 1 documented in this encounter [facility] 09-22-2021 Miscellaneous Notes Spoke with provider through secure chat-due to triage, worsening symptoms, and time of day sent patient to ED Patient stated that will head to [facility] shortly to be evaluated. Thank you, [...] up visit to show downward trend. Landen Mahmood APRN.MACY documented in this encounter [facility] 09-21-2021 History of Present illness Narrative Images from the original note were not included. Rheumatology Outpatient Clinic Date of Service: 09/21/2021 Patient: Leana Tran Medical Record: [id number] Primary Care Physician: Cas Dowell MD Referring Provider: SELF Last Rheumatology visit: None at [facility] Chief complaint: Consult (Patient states she was at [facility] on 09/19/21, seen Landen Mahmood APRN. She states her lymph nodes were [...] of Consult (Patient states she was at [facility] on 09/19/21, seen Landen Mahmood APRN. She states her lymph nodes were swollen at that visit. Patient states had COVID 10/2020. She states her bones feel like someone is scraping them. /Patient states she will pours out sweat or is freezing symptoms started in May/June and getting a lot worse now. ). [...] uncontrolled Hypertension Mother Heart Attack Mother First [place] at age 51 Cardiomyopathy Mother at age [...] (FLONASE) 50 mcg/actuation nasal spray Use 1 [place] in each nostril twice daily. zonisamide (ZONEGRAN) [...] repeat CBC, CMP, C3, C4 ordered at [facility]. To evaluate for causes that could contribute to her pain, I will follow CBC with diff, comprehensive metabolic panel,TSH, 25-hydroxy vitamin D, vitamin B12 levels, ordered at [facility]. Additionally, because sleep apnea can cause or [...] In certain cases, a referral to a computer system validation specialist may be required, in patients who [...] which included preparing to see the patient, [id number]-icrl patient care, completing clinical documentation, obtaining and/or [...] Time: 5:08 PM documented in this encounter [facility] 09-19-2021 Miscellaneous Notes Please help schedule fu visit in 4-6 weeks and testing please. Landen Mahmood APRN.CNP documented in this encounter [facility] 09-19-2021 Instructions Landen Mahmood APRN.CNP - 09/19/2021 3:10 PM EDT Welcome to [facility]'s reCOVer Clinic! The 'COV' represents SARS-CoV-2, also [...] reCOVer Clinic Team documented in this encounter [facility] 09-19-2021 History of Present illness Narrative Images [...] (FLONASE) 50 mcg/actuation nasal spray Use 1 [place] in each nostril twice daily. zonisamide (ZONEGRAN) [...] which included preparing to see the patient, [id number] patient care, completing clinical documentation, obtaining and/or reviewing separately obtained history, performing a medically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 [...] Leighann Alcazar RN documented in this encounter [facility] 06-14-2021 History of Present illness Narrative Images [...] 7.5 tablets/week. She is following a local plan coordinator who adjusted dose for her. Most recent [...] which included preparing to see the patient, ojzr-yo-orjx patient care, completing clinical documentation, obtaining and/or reviewing separately obtained history, performing a medically appropriate examination, counseling and educating the patient/family/caregiver, ordering medications, tests, or procedures. This note was dictated using QuickoL[employer] speech recognition software and may contain some errors that were a result of the program not accurately transcribing what was dictated. Jackelyn Marques M.D., M.Sc. Attending [facility] [place], [facility] Office: Appointments: documented in this encounter [facility] 06-14-2021 Nurse Note Thank you for choosing the [facility] Department of Endocrinology, Diabetes and Metabolism. Did you know that you need to call 48 hours in advance of your scheduled visit, if you are unable to make your appointment? The [facility] [place] thanks you for your commitment, because patients not showing to their appointment results in a lost opportunity for patients to receive [facility] at the [facility]. To Cancel an appointment, please choose one of the following: - Call the Appointment Call Center at [phone] - From MyChart, Go to Appointments Cancel Appts If cancelling, consider your need to reschedule to prevent further delays in your care. To Schedule an appointment, please choose one of the following: - Call the Appointment Call Center at [phone] - From [employer], Go to Appointments Request an Appt documented in this encounter [facility] 06-14-2021 History of Present illness Narrative [facility] [...] [place] [employer] documented in this encounter [facility] 06-10-2021 History of Present illness Narrative HEMATOLOGY [...] to see endocrinology, neurology and cardiology at [facility] next week. ROS is negative except [...] which included preparing to see the patient, ptoz-sg-akvg patient care, completing clinical documentation, obtaining and/or reviewing separately obtained history, performing a medically appropriate examination, counseling and educating the patient/family/caregiver, ordering medications, tests, or procedures, independently interpreting results (not separately reported) and communicating results to the patient/family/caregiver. CC: Peng Manley documented in this encounter [facility] 05-31-2021 Miscellaneous Notes Outside medical records received and scanned in for review. documented in this encounter [facility] 05-20-2021 Hospital Discharge instructions Shanna Rivas APRN [...] cannot be sent through Care Everywhere.Chest Pain (Taiwanese)Abdominal Pain (Taiwanese)documented in this encounter [employer] Phone: 04-16-2021 Hospital Discharge instructions Shanna Rivas APRN - CNP - 04/16/2021 Increase your fluid intake. Follow-up with both PCP and DEVOPS for reevaluation. Take Reglan as prescribed. Talk to your DEVOPS about the left ovarian cyst seen on CT as well as possible mild fluid in your fallopian tube. Take all medications as prescribed. Return to the ER for increased pain, fevers, difficulty breathing, vomiting or new or worsening signs or symptoms. The following attachments cannot be sent through Care Everywhere.Ovarian Cyst: Functional (Taiwanese)Nausea and Vomiting (Taiwanese)documented in this encounter [employer] Phone: 11-01-2020 Hospital Discharge instructions Araseli Barrett [...] through Care Everywhere.Coronavirus Disease (COVID-19): General Info (Taiwanese)documented in this encounter [employer] Phone: 09-06-2020 Note HNO ID: [id number] Author: Lis Moraes MD Service: ? Author [...] - Tolerated procedure well Lis Moraes MD [facility] 09-06-2020 Note HNO ID: [id number] Author: Lis Moraes MD Service: ? Author Type: Physician Type: Progress Notes Filed: 09/06/2020 3:10 PM Note Text: PROGRESS NOTE- HEADACHE SERVICE DATE: September 06, 2020 Location: [facility] Participants: patient and provider [...] bleeds - Lavender (more content not included)... [facility] Evaluation + Plan note Future Appointments Appointment Date:02/28/2022 08:30:00 AM Scheduled Provider:LORAINE BURNHAM PA-C Location:[facility] [place] Appointment Type:URO Office Visit [facility] Evaluation + Plan note Future Appointments Appointment Date:08/30/2022 03:00:00 PM Scheduled Provider:LORAINE BURNHAM PA-C Location:[facility] [place] Appointment Type:URO Office Visit [facility] Evaluation + Plan note Future Appointments Appointment Date:09/11/2023 09:00:00 AM Scheduled Provider:LORAINE BURNHAM PA-C Location:[facility] [place] Appointment Type:URO Office Visit [facility] [place] Evaluation note Diagnosis Strain of lumbar region, initial encounter- Primary documented in this encounter [employer] Phone: evaluation note* Diagnosis COVID-19- Primary documented in this encounter [employer] Phone: evaluation note* Diagnosis Intractable nausea and vomiting- Primary Persistent vomiting Hydrosalpinx Chronic salpingitis and oophoritis Left ovarian cyst Other and unspecified ovarian cyst documented in this encounter [employer] Phone: evaluation note* Diagnosis Chest pain, unspecified type- Primary Abdominal pain, acute, right lower quadrant Abdominal pain, right lower quadrant documented in this encounter [employer] Phone: evaluation note* Diagnosis Urticaria- Primary Urticaria, unspecified Moderate persistent asthma with exacerbation Unspecified asthma, with exacerbation documented in this encounter [employer] Phone: evaluation note* Diagnosis Coagulopathy (HCC)- Primary Other and unspecified coagulation defects [facility] Diagnosis Screening for endocrine disorder- Primary Primary hypothyroidism Unspecified hypothyroidism [facility] Diagnosis Screening for endocrine disorder- Primary documented [facility] Diagnosis Disorder of autonomic nervous system Unspecified disorder of autonomic nervous system [facility] Diagnosis Spasm of muscle- Primary Acute nonspecific chest pain with low risk of coronary artery disease documented in this encounter [facility] Phone: evaluation note* Diagnosis Worsening headaches- Primary Headache Maxillary sinus cyst Other diseases of nasal cavity and sinuses Muscle spasms of lower extremity, unspecified laterality Akathisia Abnormal involuntary movements Blurred vision Other specified visual disturbances Chorea Other choreas 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 Diagnosis Screening for endocrine disorder- Primary [facility] Diagnosis Intractable chronic migraine without aura and without status migrainosus- Primary Chronic migraine without aura, with intractable migraine, so stated, without mention of status migrainosus Abnormal involuntary movement Abnormal involuntary movements documented [facility] this [facility]* Diagnosis Allergy, initial encounter- Primary Headaches documented [facility] this 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* Diagnosis Screening for endocrine disorder documented 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* Diagnosis History of COVID-19- Primary Symptomatic bradycardia Other specified cardiac dysrhythmias Blood pressure instability Other abnormal clinical finding [facility] Diagnosis Angioedema, initial encounter- Primary Urticaria Urticaria, unspecified Hoarseness of voice Dysphonia Allergic rhinitis, unspecified seasonality, unspecified trigger Adverse effect of drug, initial encounter Allergic reaction to contrast material, initial encounter Adverse food reaction, initial encounter Moderate persistent asthma without complication Unspecified asthma Gastroesophageal reflux disease, unspecified whether esophagitis present [facility] Diagnosis Screening for endocrine disorder Muscle spasms of lower extremity, unspecified laterality Akathisia Abnormal involuntary movements [facility]* Diagnosis Chronic migraine without aura, intractable, without status migrainosus- Primary [facility]* Diagnosis Depression, unspecified depression type- Primary Anxiety Anxiety state, unspecified Intractable chronic migraine without aura and without status migrainosus Chronic migraine without aura, with intractable migraine, so stated, without mention of status migrainosus Abnormal involuntary movement Abnormal involuntary movements [facility]* Diagnosis White coat syndrome with hypertension- Primary [facility]* Diagnosis Intractable chronic migraine without aura and without status migrainosus Chronic migraine without aura, with intractable migraine, so stated, without mention of status migrainosus Abnormal involuntary movement Abnormal involuntary movements documented in this encounter [facility] note* Diagnosis Chronic RLQ pain- Primary Abdominal pain, right lower quadrant Diastasis recti Diastasis of muscle documented [facility] this [facility]* Diagnosis Chronic RLQ pain- Primary Abdominal pain, right lower quadrant [facility]* Diagnosis Symptomatic bradycardia Other specified cardiac dysrhythmias Blood pressure instability Other abnormal clinical finding History of COVID-19 [facility]* Diagnosis White coat syndrome without diagnosis of hypertension- Primary Elevated blood pressure reading without diagnosis of hypertension documented [facility]* Diagnosis Diffuse pain- Primary Generalized pain Decreased activity tolerance Physical deconditioning Debility, unspecified Orthostatic intolerance documented [facility] this [facility]* Diagnosis Long COVID- Primary Diffuse pain Generalized pain Decreased activity tolerance PTSD (post-traumatic stress disorder) Posttraumatic stress disorder documented in this [facility]* Diagnosis Allergic reaction, initial encounter- Primary [facility] Phone: evaluation note* Diagnosis Depression, unspecified depression type- Primary Anxiety Anxiety state, unspecified Abnormal involuntary movement Abnormal involuntary movements documented in this encounter 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* Diagnosis History of COVID-19 Post-acute sequelae [...] joint, multiple sites documented in this encounter [facility]* Diagnosis Malaise and fatigue- Primary Other malaise and fatigue Lymphadenopathy Enlargement of lymph nodes documented in this encounter [facility]* Diagnosis Depression, unspecified depression type- Primary Anxiety Anxiety state, unspecified Abnormal involuntary movement Abnormal involuntary movements documented in this encounter [facility]* Diagnosis Chronic migraine without aura, intractable, without status migrainosus- Primary documented in this encounter [facility]* Diagnosis Palpitations- Primary Symptomatic bradycardia Other specified cardiac dysrhythmias Orthostatic lightheadedness Dizziness and giddiness Diffuse pain Generalized pain Blood pressure instability Other abnormal clinical finding Decreased activity tolerance Orthostatic intolerance Moderate persistent asthma without complication Unspecified asthma Physical deconditioning Debility, unspecified documented in this encounter [facility]* Diagnosis Night sweats- Primary Generalized hyperhidrosis Lymphadenopathy Enlargement of lymph nodes Rash and nonspecific skin eruption Rash and other nonspecific skin eruption Allergic rhinitis, unspecified seasonality, unspecified trigger Moderate persistent asthma without complication Unspecified asthma documented in this encounter 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* Diagnosis KATELIN on CPAP- Primary Obstructive [...] hazards to health documented in this encounter 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* Diagnosis Palpitations- Primary Orthostatic intolerance Symptomatic bradycardia Other specified cardiac dysrhythmias documented in this encounter [facility]* Diagnosis Moderate persistent asthma without complication- Primary Unspecified asthma SOB (shortness of breath) Shortness of breath Post-acute sequelae of COVID-19 (PASC) documented in this encounter [facility]* Diagnosis Migraine without aura and without status migrainosus, not intractable- Primary Migraine without aura, without mention of intractable migraine without mention of status migrainosus documented in this encounter 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* Diagnosis No-show for appointment- Primary documented in this encounter 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* Diagnosis Migraine without aura and without status migrainosus, not intractable- Primary Migraine without aura, without mention of intractable migraine without mention of status migrainosus documented in this encounter 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* Diagnosis Chronic RLQ pain Abdominal pain, right lower quadrant documented in this encounter [facility] note* Diagnosis Severe persistent asthma with (acute) exacerbation (CMS/HCC)- Primary Allergic reaction, subsequent encounter Gastroesophageal reflux disease without esophagitis Esophageal reflux Vocal cord dysfunction Other diseases of vocal cords documented [facility] this [facility]* Diagnosis Vocal cord dysfunction- Primary Other diseases of vocal cords documented [facility] this encounter [facility] Narrative No data available for this section [facility] Hospital Discharge instructions* Instructions* Kody Cm [...] through Care Everywhere. * Strain or Sprain (Taiwanese) [facility] [employer] Phone: Hospital Discharge instructions* Attachments The following attachments cannot be sent through Care Everywhere. * Chest Pain (Taiwanese) * Restless Legs Syndrome (Taiwanese) documented in this [facility] [email or web address] Phone: Hospital Discharge instructions No data available for this section [facility] InstructionsNot on filedocumented in this encounter [facility] [employer] SystemInstructionsNot on filedocumented in this encounter [facility] No data available for this section [facility] reason for referral (narrative)* Diagnostic Procedure Only (Routine) - Authorized Specialty Diagnoses / Procedures Referred By Contac t Referred To Contact US IMAGING Diagnoses Chronic RLQ pain Procedures US SOFT TISSUE ABDOMEN US ABDOMINAL REAL TIME W/[place] [address] [place] [address] Us Imaging Referral ID Status Reason Start Date Expiration Date Visits Requested Visits Authorized [id number] Authorized Auto-Generat ed Referral 08/15/2021 09/14/2022 1 1 [facility] for referral (narrative)* Diagnostic Procedure Only (Routine) - Authorized Specialty Diagnoses / Procedures Referred By Sabas t Referred To Contact US IMAGING Diagnoses Chronic RLQ pain Procedures US PELVIS LTD US PELVIC NONOBSTETRIC IMAGE DCMTN LIMITED/F/[place] [address] [place] [address] Us Imaging Referral ID Status Reason Start Date Expiration Date Visits Requested Visits Authorized [id number] Authorized Auto-Generat ed Referral 08/16/2021 09/15/2022 1 1 [facility] for referral (narrative)* Outpatient Procedure (Routine) - Closed Specialty Diagnoses / Procedures Referred By Contac t Referred To Contact [facility] [place] Diagnoses Symptomatic bradycardia Blood pressure instability History of COVID-19 Procedures ECHO ECHO TTHRC R-T 2D W/WOM-MODE COMPL SPEC&COLR D Sai Perez MD [address] [place] [address] [facility] [place] [address] [place] [address] Referral ID Status Reason Start Date Expiration Date V isits Requested Visits Authorized [id number] Closed Auto-Generate d Referral 07/21/2021 07/21/2022 1 1 [facility] for referral (narrative)* Diagnostic Procedure Only (Routine) - Pending Review Specialty Diagnoses / Procedures Referred By Sabas t Referred To Contact US IMAGING Diagnoses Post-acute sequelae of COVID-19 (PASC) Mass of left axilla Procedures US CHEST WALL/SOFT TISSUE US CHEST REAL TIME W/IMAGE DOCUMENTATION Landen Mahmood APRN.CNP [address] [place] [id number] Us Imaging Referral ID Status Reason Start Date Expiration Date Visits Requested Visits Authorized [id number] Pending Review Auto-Generat ed Referral 09/19/2021 10/19/2022 [...] joint, multiple sites Procedures LUNG VOLUMES Landen Mahmood APRN.JANITOR AND CLEANER [address] [place] [address] [facility] [place] [address] [place] [address] Referral ID Status Reason Start Date Expiration Date Visits Requested Visits Authorized [id number] Pending Review Auto-Generat ed Referral 09/19/2021 10/19/2022 1 1 * Outpatient Procedure (Routine) - Pending Review Specialty Diagnoses / Procedures Referred By [facility] Referred To Contact [facility] Diagnoses History of COVID-19 Post-acute sequelae of COVID-19 (PASC) SOB (shortness of breath) Chronic cough Chest discomfort Palpitation CAVANAUGH (dyspnea on exertion) Dizziness Near syncope Night sweats Orthopnea Anxiety Myalgia Pain in joint, multiple sites Procedures SPIROMETRY - BASELINE AND POST DILATOR BRNCDILAT RSPSE SPMTRY PRE&POST-BRNCDILAT ADMN Landen Mahmood APRN.CNP [address] [place] [address] [facility] [place] [address] [place], [place] [id number] Referral ID Status Reason Start Date Expiration Date Visits Requested Visits Authorized [id number] Pending Review Auto-Generat ed Referral 09/19/2021 10/19/2022 [...] SIX MINUTE WALK CARDIOPULMONARY EXERCISE STRESS Landen Mahmood APRN.JANITOR AND CLEANER [address] [place] [address] [facility] [place] [address] [place], [place] [id number] Referral ID Status Reason Start Date Expiration Date Visits Requested Visits Authorized [id number] Pending Review Auto-Generat ed Referral 09/19/2021 10/19/2022 [...] LUNG DIFFUSION CAPACITY (DLCO) DIFFUSING CAPACITY Landen Mahmood APRN.CNP [address] [place] [address] [facility] [place] [address] [place], [place] [phone] Referral ID Status Reason Start Date Expiration Date Visits Requested Visits Authorized [id number] Pending Review Auto-Generat ed Referral 09/19/2021 10/19/2022 1 1 [facility] for referral (narrative)* Outpatient Procedure (Routine) - Pending Review Specialty Diagnoses / Procedures Referred By Contac t Referred To Contact [facility] [place] Diagnoses KATELIN on CPAP Poor compliance with CPAP treatment Procedures PAP NAP PSG (CPAP, BILEVEL, ASV) SLEEP STD REC VNTJ RESPIR ECG/HRT RATE&O2 ATTN Meena Grissom MD [address] [place] [address] [place] [address] Referral ID Status Reason Start Date Expiration Date Visits Requested Visits Authorized [id number] Pending Review Auto-Generat ed Referral 12/16/2022 1 1 [facility] for referral (narrative)* Outpatient Procedure (Routine) - Pending Review Specialty Diagnoses / Procedures Referred By [facility] Referred To Contact [facility] [place] Diagnoses Moderate persistent asthma without complication SOB (shortness of breath) Post-acute sequelae of COVID-19 (PASC) Procedures SPIROMETRY - BASELINE AND POST DILATOR BRNCDILAT RSPSE SPMTRY PRE&POST-BRNCDILAT Jaja Corcoran PA-C [address] [place] [address] [facility] [address] [place] [address] Referral ID Status Reason Start Date Expiration Date Visits Requested Visits Authorized [id number] Pending Review Auto-Generat ed Referral 12/06/2021 01/05/2023 1 1 * Outpatient Procedure (Routine) - Pending Review Specialty Diagnoses / Procedures Referred By Contac t Referred To Contact [facility] Diagnoses Moderate persistent asthma without complication SOB (shortness of breath) Post-acute sequelae of COVID-19 (PASC) Procedures NITRIC OXIDE, EXHALED NITRIC OXIDE GAS DETERMINATION Jaja Cabral PA-C [address] [place] [address] [facility] [place] [address] [place] [address] Referral ID Status Reason Start Date Expiration Date Visits Requested Visits Authorized [id number] Pending Review Auto-Generat ed Referral 12/06/2021 01/05/2023 1 1 [facility] for referral (narrative)* Diagnostic Procedure Only (Routine) - Closed Specialty Diagnoses / Procedures Referred By Sabas harris Referred To Contact US IMAGING Diagnoses Chronic RLQ pain Procedures US PELVIS LTD US PELVIC NONOBSTETRIC IMAGE [facility]/F/[place] [address] [place] [address] Us Imaging [place] [address] Referral ID Status Reason Start Date Expiration Date V isits Requested Visits Authorized [id number] Closed Auto-Generate d Referral 08/16/2021 09/15/2022 1 1 [facility] for referral (narrative)* Consultation (Routine) - Pending Review Specialty Diagnoses / Procedures Referred By Sabas harris Referred To Contact Speech Pathology Diagnoses Vocal cord dysfunction Procedures NC OFFICE/OUTPATIENT [facility] HIGH MDM 60 MINUTES Christy Painting MD [address] [facility] [address] [place] [address] Referral ID Status Reason Start Date Expiration Date Visits Requested Visits Authorized [id number] Pending Review Specialty Services Required 11/07/2023 05/05/2024 1 1 [facility] for visit Narrative* Outpatient Procedure (Routine) - Closed Specialty Diagnoses / Procedures Referred By Sabas harris Referred To Contact [facility] Diagnoses Symptomatic bradycardia Blood pressure instability History of COVID-19 Procedures ECHO ECHO TTHRC R-T 2D W/WOM-MODE COMPL SPEC&COLR D Sai Perez MD [address] [place] [address] [facility] [place] [address] [place] [address] Referral ID Status Reason Start Date Expiration Date V isits Requested Visits Authorized [id number] Closed Auto-Generate d Referral 07/21/2021 07/21/2022 1 1 [facility] for visit Narrative* Outpatient Procedure [...] SIX MINUTE WALK CARDIOPULMONARY EXERCISE STRESS Landen Mahmood APRN.JANITOR AND CLEANER [address] [place] [phone] [facility] [place] [address] [place], [place] [phone] Referral ID Status Reason Start Date Expiration Date V isits Requested Visits Authorized [id number] Closed Auto-Generate d Referral 09/19/2021 10/19/2022 1 1 [facility] for visit Narrative* Diagnostic Procedure Only (Routine) - Closed Specialty Diagnoses / Procedures Referred By Contac t Referred To Contact US IMAGING Diagnoses Chronic RLQ pain Procedures US PELVIS LTD US PELVIC NONOBSTETRIC IMAGE DCMTN LIMITED/F/[place] [address] [place] [address] [place] [address] Referral ID Status Reason Start Date Expiration Date V isits Requested Visits Authorized [id number] Closed Auto-Generate d Referral 08/16/2021 09/15/2022 [address] 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 Advance Directive(s) 06/27/2021 1:27 PM Advance Directive(s) 05/18/2015 10:11 AM Advance Directive(s) 05/14/2015 12:11 PM Documents on File Type Date Recorded 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 Advance Directive(s) 06/27/2021 1:27 PM Advance Directive(s) 05/18/2015 10:11 AM Advance Directive(s) 05/14/2015 12:11 PM Documents on File Type Date Recorded 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 ACP-Advance Directive 01/12/2022 2:29 PM ACP-Power of Reading Instructor 01/12/2022 2:29 PM Latest Code Status on File Code Status Date Activated Date Inactivated Comments Full Code 01/08/2022 5:06 PM 01/11/2022 3:07 PM Full Code 12/30/2011 10:09 AM 12/31/2011 4:00 PM Healthcare Agents on File Name Relationship Healthcare Agent Relationship Communication Sean Marc Spouse Primary Decision Maker Summary Purpose Family History No Family History Records FoundNo Family History Records FoundNo Family History Records FoundNo Family History Records FoundNo Family History Records FoundNo Family History Records FoundNo Family History Records FoundNo Family History Records Found No data available for this section No Family History Records FoundNo Family History Records FoundNo Family History Records FoundNo Family History Records FoundNo Family History Records Found Reason for Referral Specialty Diagnoses / Procedures Referred By Sabas harris Referred To Contact Neurology Diagnoses Muscle spasms of lower extremity, unspecified laterality Akathisia Procedures CONSULT TO NEUROLOGY OFFICE/OUTPATIENT [facility] 60-74 MINUTES Peter Knight, FRUIT OR NUT GROWER.JANITOR AND CLEANER [address] [place] [address] Referral ID Status Reason Start Date Expiration Date Visits Requested Visits Authorized [id number] Authorized PCP Requested Referral 06/27/2021 06/27/2022 1 1 Specialty Diagnoses / Procedures Referred By Contac t Referred To Contact Ent - Otolaryngology Diagnoses Maxillary sinus cyst Procedures CONSULT TO ENT OFFICE/OUTPATIENT [facility] 60-74 MINUTES Peter Knight APRN.CNP [address] [place] [address] Referral ID Status Reason Start Date Expiration Date Visits Requested Visits Authorized [id number] Authorized PCP Requested Referral 06/27/2021 06/27/2022 1 1 Specialty Diagnoses / Procedures Referred By Contac t Referred To Contact Diagnoses Coagulopathy (HCC) 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HCC) Procedures CONSULT TO MEDICAL GENETICS - GENERAL OFFICE/OUTPATIENT [facility] 60-74 MINUTES MEDICAL GENETICS COUNSELING EACH 30 MINUTES Yan Bass MD [address] [place] [address] [place] [address] [facility] [place] [address] [place] [address] Referral ID Status Reason Start Date Expiration Date Visits Requested Visits Authorized [id number] Authorized PCP Requested Referral Auto-Generate d Referral 07/01/2021 07/01/2022 1 1 Specialty Diagnoses / Procedures Referred By Contac t Referred To Contact Psychology Diagnoses Intractable chronic migraine without aura and without status migrainosus Abnormal involuntary movement Procedures CONSULT TO PSYCHOLOGY OFFICE/OUTPATIENT [facility] 60-74 MINUTES Tracee Mcintyre MD [address] [place] [address] Referral ID Status Reason Start Date Expiration Date Visits Requested Visits Authorized [id number] Pending Review PCP Requested Referral 07/06/2021 07/06/2022 1 1 Specialty Diagnoses / Procedures Referred By Contac t Referred To Contact [facility] Diagnoses Intractable chronic migraine without aura and without status migrainosus Abnormal involuntary movement Procedures CONSULT TO PHYSICAL THERAPY PHYSICAL THERAPY EVALUATION HIGH COMPLEX [place] [address] [place] [address] [facility] [address] [address] Referral ID Status Reason Start Date Expiration Date Visits Requested Visits Authorized [id number] Pending Review Auto-Generat ed Referral 07/06/2021 07/06/2022 1 1 Specialty Diagnoses / Procedures Referred By Contac t Referred To Contact Allergy Diagnoses Allergy, initial encounter Procedures CONSULT TO ALLERGY/IMMUNOLOGY OFFICE/OUTPATIENT [facility] 60-74 MINUTES Aldo Ann MD [address] [place] [address] Referral ID Status Reason Start Date Expiration Date Visits Requested Visits Authorized [id number] Authorized PCP Requested Referral 07/14/2021 07/14/2022 1 1 Specialty Diagnoses / Procedures Referred By Contac t Referred To Contact PULM COVID RECOV [facility] Diagnoses History of COVID-19 Procedures [facility] Sai Perez MD [address] [place] [address] Pulm Covid Recov [facility] [address] [place] [address] Referral ID Status Reason Start Date Expiration Date Visits Requested Visits Authorized [id number] Authorized PCP Requested Referral 07/21/2021 07/21/2022 1 1 Specialty Diagnoses / Procedures Referred By Contac t Referred To Contact [facility] Diagnoses Symptomatic bradycardia Blood pressure instability History of COVID-19 Procedures ECHO ECHO TTHRC R-T 2D W/WOM-MODE COMPL SPEC&COLR D Sai Perez MD [address] [place] [address] [facility] [place] [address] [place] [address] Referral ID Status Reason Start Date Expiration Date Visits Requested Visits Authorized [id number] Authorized Auto-Generat ed Referral 07/21/2021 07/21/2022 1 1 Specialty Diagnoses / Procedures Referred By Contac t Referred To Contact Ent - Otolaryngology Diagnoses Hoarseness of voice Procedures CONSULT TO ENT OFFICE/OUTPATIENT [facility] 60-74 MINUTES Henny Rushing MD [address] [place] [address] Rc Cardenas, PhD, CCC-OUTSIDE UPHOLSTERER [address] [place] [address] Referral ID Status Reason Start Date Expiration Date Visits Requested Visits Authorized [id number] Authorized PCP Requested Referral 07/25/2021 07/25/2022 1 1 Specialty Diagnoses / Procedures Referred By Contac t Referred To Contact Diagnoses Diffuse pain Decreased activity tolerance Physical deconditioning Procedures WELLNESS CONSULT OFFICE/OUTPATIENT [facility] 60-74 MINUTES Peter Knight APRN.CNP [address] [id number] Referral ID Status Reason Start Date Expiration Date Visits Requested Visits Authorized [id number] Authorized PCP Requested Referral 08/23/2021 08/23/2022 1 1 Specialty Diagnoses / Procedures Referred By Contac t Referred To Contact Diagnoses Long COVID PTSD (post-traumatic stress disorder) Procedures MIND/BODY HOLISTIC PSYCHOTHERAPY OFFICE/OUTPATIENT [facility] 60-74 MINUTES Ayaka Bright MD [facility] [address] [place] [address] Referral ID Status Reason Start Date Expiration Date Visits Requested Visits Authorized [id number] Authorized PCP Requested Referral 08/30/2021 08/30/2022 1 1 Specialty Diagnoses / Procedures Referred By Contac t Referred To Contact Diagnoses Long COVID Diffuse pain Decreased activity tolerance Procedures CONSULT TO NUTRITION SERVICES AT [facility] OFFICE/OUTPATIENT [facility] 60-74 MINUTES Ayaka Bright MD [facility] [address] [place] [address] Referral ID Status Reason Start Date Expiration Date Visits Requested Visits Authorized [id number] Authorized PCP Requested Referral 08/30/2021 08/30/2022 1 1 Specialty Diagnoses / Procedures Referred By Contac t Referred To Contact Diagnoses Chronic migraine without aura, intractable, without status migrainosus Procedures PROVIDER ORDERED FOLLOW UP OFFICE/OUTPATIENT [facility] 60-74 MINUTES Bhargavi Ramesh PA-C [address] [id number] Referral ID Status Reason Start Date Expiration Date Visits Requested Visits Authorized [id number] Authorized PCP Requested Referral 10/19/2022 1 1 Specialty Diagnoses / Procedures Referred By Contac t Referred To Contact Hematology Diagnoses Lymphadenopathy Night sweats Procedures CONSULT TO HEMATOLOGY OFFICE/OUTPATIENT [facility] 60-74 MINUTES Henny Rushing MD [address] [address] Referral ID Status Reason Start Date Expiration Date Visits Requested Visits Authorized [id number] Authorized PCP Requested Referral 10/24/2021 10/24/2022 1 1 Specialty Diagnoses / Procedures Referred By Contac t Referred To Contact Diagnoses Migraine without aura and without status migrainosus, not intractable Procedures PROVIDER ORDERED FOLLOW UP OFFICE/OUTPATIENT [facility] 60-74 MINUTES Bhargavi Ramesh PA-C [address] [place] [address] Referral ID Status Reason Start Date Expiration Date Visits Requested Visits Authorized [id number] Authorized PCP Requested Referral 04/16/2022 01/16/2023 1 1 Specialty Diagnoses / Procedures Referred By Contac t Referred To Contact Cardiology Diagnoses 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) Coagulopathy (HCC) Procedures CONSULT TO CARDIOLOGY OFFICE/OUTPATIENT [facility] 60-74 MINUTES Fuentes Amaral MD [address] [place] [address] [place] [address] Referral ID Status Reason Start Date Expiration Date Visits Requested Visits Authorized [id number] Authorized PCP Requested Referral 02/16/2022 02/16/2023 1 1 Referral ID Status Reason Start Date Expiration Date Visits Requested Visits Authorized [id number] Authorized PCP Requested Referral 10/27/2022 04/26/2023 1 [...] Comments Allergic Reaction 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 Pt used epi-pen prior to arrival and reports feeling short of breath Reason Comments surgery clearence Reason Comments Adrenal Specialty Diagnoses / Procedures Referred By Contac t Referred To Contact Endocrinology Diagnoses Symptomatic bradycardia Blood pressure instability Procedures CONSULT TO ENDOCRINOLOGY OFFICE/OUTPATIENT [facility] 60-74 MINUTES Peter Knight APRN.JANITOR AND CLEANER [address] [phone] Referral ID Status Reason Start Date Expiration Date V isits Requested Visits Authorized [id number] Closed PCP Requested Referral 05/24/2021 05/24/2022 1 [...] CONSULT TO MEDICAL GENETICS - GENERAL OFFICE/OUTPATIENT [facility] 60-74 MINUTES MEDICAL GENETICS COUNSELING EACH 30 MINUTES Yan Bass MD [address] [place] [address] [place] [address] [facility] [place] [address] [place] [address] Referral ID Status Reason Start Date Expiration Date V isits Requested Visits Authorized [id number] Closed PCP Requested Referral Auto-Generated Referral 07/01/2021 07/01/2022 1 1 Reason Comments Coagulopathy Specialty Diagnoses / Procedures Referred By Contac t Referred To Contact Cardiology Diagnoses Symptomatic bradycardia Blood pressure instability Procedures CONSULT TO CARDIOLOGY OFFICE/OUTPATIENT [facility] 60-74 MINUTES Peter Knight APRN.JANITOR AND CLEANER [address] [id number] Referral ID Status Reason Start Date Expiration Date V isits Requested Visits Authorized [id number] Closed PCP Requested Referral 05/24/2021 05/24/2022 1 1 Reason Comments Allergies Asthma Reason Comments Follow Up Chronic Migraine Reason Comments Consult Specialty Diagnoses / Procedures Referred By Contac t Referred To Contact Psychology Diagnoses Intractable chronic migraine without aura and without status migrainosus Abnormal involuntary movement Procedures CONSULT TO PSYCHOLOGY OFFICE/OUTPATIENT [facility] 60-74 MINUTES Tracee Mcintyre MD [address] [place] [address] Referral ID Status Reason Start Date Expiration Date Visits Requested Visits Authorized [id number] Pending Review PCP Requested Referral 07/06/2021 07/06/2022 [...] COMPLEX 45 MINS Tracee Mcintyre MD [address] [place] [address] [facility] [place] [facility] [place] [address] Referral ID Status Reason Start Date Expiration Date V isits Requested Visits Authorized [id number] Authorized 02/05/2021 02/04/2022 99 99 Reason Comments [...] MDM 60-74 MINUTES Peter Knight APRN.MACY [address] [place] [address] Referral ID Status Reason Start Date Expiration Date V isits Requested Visits Authorized [id number] Closed PCP Requested Referral 08/23/2021 08/23/2022 1 1 Reason Comments Allergic Reaction Onset prior to arriv al. Pt reports her face is burning and feels short of breath. 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 She states her lymph nodes were swollen at that visit. Patient states had COVID 10/2020. She states her bones feel like someone is scraping them. Patient states she will pours out sweat or is freezing symptoms started in May/June and getting a lot worse now. Reason Comments Spirometry Specialty Diagnoses / Procedures Referred By Contsuraj t Referred To Contact [facility] Diagnoses History of COVID-19 Post-acute sequelae of COVID-19 (PASC) SOB (shortness of breath) Chronic cough Chest discomfort Palpitation CAVANAUGH (dyspnea on exertion) Dizziness Near syncope Night sweats Orthopnea Anxiety Myalgia Pain in joint, multiple sites Procedures LUNG DIFFUSION CAPACITY (DLCO) DIFFUSING CAPACITY Landen Mahmood APRN.JANITOR AND CLEANER [address] [place] [address] [facility] [place] [address] [place] [address] Referral ID Status Reason Start Date Expiration Date V isits Requested Visits Authorized [id number] Closed Auto-Generate d Referral 09/19/2021 10/19/2022 1 1 Specialty Diagnoses / Procedures Referred By Sabas t Referred To Contact [facility] Diagnoses History of COVID-19 Post-acute sequelae of COVID-19 (PASC) SOB (shortness of breath) Chronic cough Chest discomfort Palpitation CAVANAUGH (dyspnea on exertion) Dizziness Near syncope Night sweats Orthopnea Anxiety Myalgia Pain in joint, multiple sites Procedures SPIROMETRY - BASELINE AND POST DILATOR BRNCDILAT RSPSE SPMTRY PRE&POST-BRNCDILAT ADMN Landen Mahmood APRN.JANITOR AND CLEANER [address] [place] [address] [facility] [place] [address] [place] [address] Referral ID Status Reason Start Date Expiration Date V isits Requested Visits Authorized [id number] Closed Auto-Generate d Referral 09/19/2021 10/19/2022 1 [...] PLETHYSMOGRAPHY LUNG VOLUMES W/WO AIRWAY RESIST Landen Mahmood APRN.JANITOR AND CLEANER [address] [place] [address] [facility] [place] [address] [place] [address] Referral ID Status Reason Start Date Expiration Date V isits Requested Visits Authorized [id number] Closed Auto-Generate d Referral 09/21/2021 02/04/2022 1 1 Reason Comments Radio Gen A21 Reason Comments discuss test results Reason Comments Follow Up Chronic Migraine Reason Comments Palpitations Reason Comments Allergic Rhinitis Asthma Reason Comments coagulpathy Reason Comments Established Patient Reason Comments Appointment Download Pap Therapy Follow UP Reason Comments 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 - Other Download Reason Comments Sleep Apnea Reason Comments Breast screening Reason Comments Patient Update Reason Comments Follow Up Migraine Specialty Diagnoses / Procedures Referred By Contac t Referred To Contact Diagnoses Chronic migraine without aura, intractable, without status migrainosus Procedures PROVIDER ORDERED FOLLOW UP OFFICE/OUTPATIENT NEW [facility]IGH MDM 60-74 MINUTES Bhargavi Ramesh PA-C [address] [place] [address] Referral ID Status Reason Start Date Expiration Date V isits Requested Visits Authorized [id number] Closed PCP Requested Referral 01/18/2022 10/19/2022 1 [...] OFFICE/OUTPATIENT NEW HIGH MDM 60-74 MINUTES Bhargavi Ramesh PA-C [address] [place] [address] Referral ID Status Reason Start Date Expiration Date V isits Requested Visits Authorized [id number] Closed PCP Requested Referral 04/16/2022 01/16/2023 1 1 Reason Comments PAP Therapy Follow Up DOWNLOAD Reason Comments Qualitative platelet disorder 5 month fo llow up Reason Comments Med Refill Reason Comments Follow-up Reason Comments Qualitative platelet disorder Reason Comments new patient Pt states since Oct 2020 she starts with a rash, then hives, tight chest, wheezing, and then her throat closes up. She believes it is essential oils, and products containing oil. Lavender, Lilac etc. Specialty Diagnoses / Procedures Referred By Sabas harris Referred To Contact Allergy Diagnoses Allergic reaction, subsequent encounter Procedures [place] OFFICE/OUTPATIENT [facility] MDM 60 MINUTES Cas Dowell MD [address] [place] [address] Christy Painting MD [address] [facility] [address] [place] [address] Referral ID Status Reason Start Date Expiration Date Visits Requested Visits Authorized [id number] Pending Review Specialty Services Required 09/26/2023 03/24/2024 1 1 Ordered Prescriptions (unrec ognized section and content) [...] 3 TIMES DAILY PRN, Cough, Starting on 11/01/20 at 1428 1439 (Given - Provid er: [...] NS 222 (Given - Provid er: Luisana Reeder [...] On 06/04/21 at 1630, For 1 dose 163 (Given - Provid er: Terri Painter RN) [...] DATE CREATED AUTHOR AUTHOR'S ORGANIZ ATION 04/26/2021 [facility] DATE CREATED AUTHOR AUTHOR'S ORGANIZ ATION 07/27/2021 [facility] DATE CREATED AUTHOR AUTHOR'S ORGANIZ ATION 12/22/2021 [facility] DATE CREATED AUTHOR AUTHOR'S ORGANIZ ATION 04/07/2022 [facility] DATE CREATED AUTHOR AUTHOR'S ORGANIZ ATION 06/17/2022 [facility] DATE CREATED AUTHOR AUTHOR'S ORGANIZ ATION 12/19/2022 [facility] DATE CREATED AUTHOR AUTHOR'S ORGANIZ ATION 05/09/2023 [facility] DATE CREATED AUTHOR AUTHOR'S ORGANIZ ATION 10/05/2023 [facility] DATE CREATED AUTHOR AUTHOR'S ORGANIZ ATION 10/18/2023 [facility] DATE CREATED AUTHOR AUTHOR'S ORGANIZ ATION 10/31/2023 [facility] DATE CREATED AUTHOR AUTHOR'S ORGANIZ ATION 11/08/2023 [facility] DATE CREATED AUTHOR AUTHOR'S ORGANIZ ATION 11/12/2023 [facility] Care Teams (unrecognized sec tion and content) Machine Heel Seat Laster Relationship Specialty Start Date End Date Cas Dowell MD PCP - General 09/04/11 Machine Heel Seat Laster Relationship Specialty Start Date End Date Cas Dowell MD PCP - General 09/04/11 Machine Heel Seat Laster Relationship Specialty Start Date End Date Cas Dowell PCP - General Family Practice 02/20/14 Machine Heel Seat Laster Relationship Specialty Start Date End Date Cas Dowell MD PCP - General 09/04/11 Machine Heel Seat Laster Relationship Specialty Start Date End Date Cas Dowell PCP - General Family Practice 02/20/14 Machine Heel Seat Laster Relationship Specialty Start Date End Date Cas Dowell PCP - General Family Practice 02/20/14 Machine Heel Seat Laster Relationship Specialty Start Date End Date Cas Dowell PCP - General Family Practice 02/20/14 Machine Heel Seat Laster Relationship Specialty Start Date End Date Cas Dowell PCP - General Family Practice 02/20/14 Machine Heel Seat Laster Relationship Specialty Start Date End Date Cas Dowell PCP - General Family Practice 02/20/14 Machine Heel Seat Laster Relationship Specialty Start Date End Date NadelCas almonte PCP - General Family Practice 02/20/14 Machine Heel Seat Laster Relationship Specialty Start Date End Date GabrielaCas almonte PCP - General Family Practice 02/20/14 Machine Heel Seat Laster Relationship Specialty Start Date End Date Cas Dowell MD PCP - General 09/04/11 Machine Heel Seat Laster Relationship Specialty Start Date End Date NadelCas almonte PCP - General Family Practice 02/20/14 Machine Heel Seat Laster Relationship Specialty Start Date End Date NadelCas almonte PCP - General Family Practice 02/20/14 Machine Heel Seat Laster Relationship Specialty Start Date End Date NadelCas almonte PCP - General Family Practice 02/20/14 Machine Heel Seat Laster Relationship Specialty Start Date End Date NadelCas almonte PCP - General Family Practice 02/20/14 Machine Heel Seat Laster Relationship Specialty Start Date End Date GabrielaCas almonte PCP - General Family Practice 02/20/14 Machine Heel Seat Laster Relationship Specialty Start Date End Date NadelCas almonte PCP - General Family Practice 02/20/14 Machine Heel Seat Laster Relationship Specialty Start Date End Date NadelCas almonte PCP - General Family Practice 02/20/14 Machine Heel Seat Laster Relationship Specialty Start Date End Date NadCas howe PCP - General Family Practice 02/20/14 Sai Perez MD [address] [place] [address] Primary Staff Physician Cardiology 07/21/21 Machine Heel Seat Laster Relationship Specialty Start Date End Date Cas Dowell PCP - General Family Practice 02/20/14 Sai Perez MD [address] [place] [address] Primary Staff Physician Cardiology 07/21/21 Machine Heel Seat Laster Relationship Specialty Start Date End Date Cas Dowell PCP - General Family Practice 02/20/14 Sai Perez MD [address] [place] [address] Primary Staff Physician Cardiology 07/21/21 Machine Heel Seat Laster Relationship Specialty Start Date End Date Cas Dowell PCP - General Family Practice 02/20/14 Machine Heel Seat Laster Relationship Specialty Start Date End Date Cas Dowell PCP - General Family Practice 02/20/14 Sai Perez MD [address] [place] [address] Primary Staff Physician Cardiology 07/21/21 Machine Heel Seat Laster Relationship Specialty Start Date End Date Cas Dowell PCP - General Family Practice 02/20/14 Sai Perez MD [address] [place] [address] Primary Staff Physician Cardiology 07/21/21 Machine Heel Seat Laster Relationship Specialty Start Date End Date Cas Dowell PCP - General Family Practice 02/20/14 Sai Perez MD [address] [place] [address] Primary Staff Physician Cardiology 07/21/[address] [place] [address] Referring DEVOPS 08/05/21 Machine Heel Seat Laster Relationship Specialty Start Date End Date Cas Dowell PCP - General Family Practice 02/20/14 Sai Perez MD [address] [place] [address] Primary Staff Physician Cardiology 07/21/[address] [place] [address] Referring DEVOPS 08/05/21 Machine Heel Seat Laster Relationship Specialty Start Date End Date Cas Dowell PCP - General Family Practice 02/20/14 Sai Perez MD [address] [place] [address] Primary Staff Physician Cardiology 07/21/[address], [facility] Referring DEVOPS 08/05/21 Machine Heel Seat Laster Relationship Specialty Start Date End Date Cas Dowell PCP - General Family Practice 02/20/14 Sai Perez MD [address] [place] [address] Primary Staff Physician Cardiology 07/21/[address], [place] [id number] Referring DEVOPS 08/05/21 Machine Heel Seat Laster Relationship Specialty Start Date End Date Cas Dowell PCP - General Family Practice 02/20/14 Sai Perez MD [address] [place] [address] Primary Staff Physician Cardiology 07/21/21 Rubens Tim [address] [place], [facility] Referring DEVOPS 08/05/21 Machine Heel Seat Laster Relationship Specialty Start Date End Date Cas Dowell PCP - General Family Practice 02/20/14 Sai Perez MD [address] [place] [address] Primary Staff Physician Cardiology 07/21/21 Rubens Tim [address] [place], [facility] Referring DEVOPS 08/05/21 Machine Heel Seat Laster Relationship Specialty Start Date End Date Cas Dowell PCP - General Family Practice 02/20/14 Sai Perez MD [address] [place] [address] Primary Staff Physician Cardiology 07/21/21 Rubens Tim [address] [place] [address] Referring DEVOPS 08/05/21 Machine Heel Seat Laster Relationship Specialty Start Date End Date Cas Dowell PCP - General Family Practice 02/20/14 Sai Perez MD [address] [place] [address] Primary Staff Physician Cardiology 07/21/21 Rubens Tim, DO [address] [place] [address] [place] [address] Referring DEVOPS 08/05/21 Machine Heel Seat Laster Relationship Specialty Start Date End Date Cas Dowell PCP - General Family Practice 02/20/14 Sai Perez MD [address] [place] [address] Primary Staff Physician Cardiology 07/21/21 Rubens Tim, DO [address] [place], [place] [address] Referring DEVOPS 08/05/21 Machine Heel Seat Laster Relationship Specialty Start Date End Date Cas Dowell PCP - General Family Practice 02/20/14 Sai Perez MD [address] [place] [address] Primary Staff Physician Cardiology 07/21/21 Rubens Tim, DO [address] [place], [facility] Referring DEVOPS 08/05/21 Machine Heel Seat Laster Relationship Specialty Start Date End Date Cas Dowell PCP - General Family Practice 02/20/14 Sai Perez MD [address] [place] [address] Primary Staff Physician Cardiology 07/21/21 Rubens Tim, DO [address] [place] [address] Referring DEVOPS 08/05/21 Machine Heel Seat Laster Relationship Specialty Start Date End Date Cas Dowell MD PCP - General 09/04/11 Machine Heel Seat Laster Relationship Specialty Start Date End Date Cas Dowell PCP - General Family Practice 02/20/14 Sai Perez MD [address] [place] [address] Primary Staff Physician Cardiology 07/21/21 Rubens Tim, DO [address] [place], [place] [address] Referring DEVOPS 08/05/21 Machine Heel Seat Laster Relationship Specialty Start Date End Date Cas Dowell PCP - General Family Practice 02/20/14 Sai Perez MD [address] [place] [address] Primary Staff Physician Cardiology 07/21/21 Rubens Tim, DO [address] [place], [facility]11 Referring DEVOPS 08/05/21 Machine Heel Seat Laster Relationship Specialty Start Date End Date Cas Dowell PCP - General Family Practice 02/20/14 Sai Perez MD [address] [place] [address] Primary Staff Physician Cardiology 07/21/21 Rubens Tim, DO [address] [place], [place] [id number] Referring DEVOPS 08/05/21 Machine Heel Seat Laster Relationship Specialty Start Date End Date Cas Dowell PCP - General Family Practice 02/20/14 Sai Perez MD [address] [place] [address] Primary Staff Physician Cardiology 07/21/21 Rubens Tim, DO [address] [place] [address] Referring DEVOPS 08/05/21 Machine Heel Seat Laster Relationship Specialty Start Date End Date Cas Dowell PCP - General [facility] Practice 02/20/14 Sai Perez MD [address] [place] [address] Primary Staff Physician Cardiology 07/21/21 Rubens Tim, DO [address] [place], [facility]11 Referring DEVOPS 08/05/21 Machine Heel Seat Laster Relationship Specialty Start Date End Date Cas Dowell PCP - General Family Practice 02/20/14 Sai Perez MD [address] [place] [address] Primary Staff Physician Cardiology 07/21/21 Rubens Tim, DO [address] [place], [place] [id number] Referring DEVOPS 08/05/21 Machine Heel Seat Laster Relationship Specialty Start Date End Date Cas Dowell PCP - General Family Practice 02/20/14 Sai Perez MD [address] [place] [address] Primary Staff Physician Cardiology 07/21/21 Rubens Tim, DO [address] [place] [address] Referring DEVOPS 08/05/21 Machine Heel Seat Laster Relationship Specialty Start Date End Date Cas Dowell PCP - General Family Practice 02/20/14 Sai Perez MD [address] [place] [address] Primary Staff Physician Cardiology 07/21/21 Rubens Tim, DO [address] [place], [facility]11 Referring DEVOPS 08/05/21 Machine Heel Seat Laster Relationship Specialty Start Date End Date Cas Dowell PCP - General Family Practice 02/20/14 Sai Perez MD [address] [place] [address] Primary Staff Physician Cardiology 07/21/21 Rubens Tim, DO [address] [place] [address] Referring DEVOPS 08/05/21 Machine Heel Seat Laster Relationship Specialty Start Date End Date Cas Dowell PCP - General Family Practice 02/20/14 Sai Perez MD [address] [place] [address] Primary Staff Physician Cardiology 07/21/21 Rubens Tim, DO [address] [place] [address] Referring DEVOPS 08/05/21 Machine Heel Seat Laster Relationship Specialty Start Date End Date Cas Dowell PCP - General Family Practice 02/20/14 Sai Perez MD [address] [place] [address] Primary Staff Physician Cardiology 07/21/21 Rubens Tim, DO [address] [place] [address] Referring DEVOPS 08/05/21 Machine Heel Seat Laster Relationship Specialty Start Date End Date Cas Dowell PCP - General Family Practice 02/20/14 Sai Perez MD [address] [place] [address] Primary Staff Physician Cardiology 07/21/21 Rubens Tim, DO [address] [place] [address] Referring DEVOPS 08/05/21 Machine Heel Seat Laster Relationship Specialty Start Date End Date Cas Dowell PCP - General Family Medicine 02/20/14 Sai Perez MD [address] [place] [address] Primary Staff Physician Cardiology 07/21/21 Rubens Tim, DO [address] [place] [address] Referring DEVOPS 08/05/21 Machine Heel Seat Laster Relationship Specialty Start Date End Date Cas Dowell PCP - General Family Medicine 02/20/14 Sai Perez MD [address] [place] [address] Primary Staff Physician Cardiology 07/21/21 Rubens Tim, DO [address] [place], [place] [id number] Referring DEVOPS 08/05/21 Machine Heel Seat Laster Relationship Specialty Start Date End Date Cas Dowell PCP - General Family Medicine 02/20/14 Sai Perez MD [address] [place] [address] Primary Staff Physician Cardiology 07/21/21 Rubens Tim, DO [address] [place], [facility]11 Referring DEVOPS 08/05/21 Machine Heel Seat Laster Relationship Specialty Start Date End Date Cas Dowell PCP - General Family Medicine 02/20/14 Sai Perez MD [address] [place] [address] Primary Staff Physician Cardiology 07/21/21 Rubens Tim, DO [address] [place], [facility]11 Referring DEVOPS 08/05/21 Machine Heel Seat Laster Relationship Specialty Start Date End Date Cas Dowell PCP - General Family Medicine 02/20/14 Sai Perez MD [address] [place] [address] Primary Staff Physician Cardiology 07/21/21 Rubens Tim, DO [address] [place] [address] Referring DEVOPS 08/05/21 Machine Heel Seat Laster Relationship Specialty Start Date End Date Cas Dowell PCP - General Family Medicine 02/20/14 Sai Perez MD [address] [place] [address] Primary Staff Physician Cardiology 07/21/21 Rubens Tim, DO [address] [place] [address] Referring DEVOPS 08/05/21 Machine Heel Seat Laster Relationship Specialty Start Date End Date Cas Dowell PCP - General Family Medicine 02/20/14 Sai Perez MD [address] [place] [address] Primary Staff Physician Cardiology 07/21/21 Rubens Tim, DO [address] [place] [address] Referring DEVOPS 08/05/21 Machine Heel Seat Laster Relationship Specialty Start Date End Date Cas Dowell PCP - General Family Medicine 02/20/14 Sai Perez MD [address] [place] [address] Primary Staff Physician Cardiology 07/21/21 Rubens Tmi, DO [address] [place] [address] Referring DEVOPS 08/05/21 Machine Heel Seat Laster Relationship Specialty Start Date End Date Cas Dowell PCP - General Family Medicine 02/20/14 Sai Perez MD [address] [place] [address] Primary Staff Physician Cardiology 07/21/21 Rubens Tim, DO [address] [place], [facility]11 Referring DEVOPS 08/05/21 Machine Heel Seat Laster Relationship Specialty Start Date End Date Cas Dowell PCP - General Family Medicine 02/20/14 Sai Perez MD [address] [place] [address] Primary Staff Physician Cardiology 07/21/21 Rubens Tim, DO [address] [place], [facility]11 Referring DEVOPS 08/05/21 Machine Heel Seat Laster Relationship Specialty Start Date End Date Cas Dowell PCP - General Family Medicine 02/20/14 Sai Perez MD [address] [place] [address] Primary Staff Physician Cardiology 07/21/21 Rubens Tim, DO [address] [place], [place] [id number] Referring DEVOPS 08/05/21 Machine Heel Seat Laster Relationship Specialty Start Date End Date Cas Dowell PCP - General Family Medicine 02/20/14 Sai Perez MD [address] [place] [address] Primary Staff Physician Cardiology 07/21/21 Rubens Tim, DO [address] [place], [facility] Referring DEVOPS 08/05/21 Machine Heel Seat Laster Relationship Specialty Start Date End Date Cas Dowell PCP - General Family Medicine 02/20/14 Sai Perez MD [address] [place], [place] [address] Primary Staff Physician Cardiology 07/21/21 Rubens Tim, DO [address] [place], [place] [address] Referring DEVOPS 08/05/21 Machine Heel Seat Laster Relationship Specialty Start Date End Date Cas Dowell MD PCP - General 09/04/11 Machine Heel Seat Laster Relationship Specialty Start Date End Date Cas Dowell PCP - General Family Medicine 02/20/14 Sai Perez MD [address] [place] [address] Primary Staff Physician Cardiology 07/21/21 Rubens Tim, DO [address] [place], [place] [address] Referring DEVOPS 08/05/21 Machine Heel Seat Laster Relationship Specialty Start Date End Date Cas Dowell PCP - General Family Medicine 02/20/14 Sai Perez MD [address] [place] [address] Primary Staff Physician Cardiology 07/21/21 Rubens Tim, DO [address] [place], [place] [id number] Referring DEVOPS 08/05/21 Machine Heel Seat Laster Relationship Specialty Start Date End Date Cas Dowell PCP - General Family Medicine 02/20/14 Sai Perez MD [address] [place] [address] Primary Staff Physician Cardiology 07/21/21 Rubens Tim, DO [address] [place], [facility] Referring DEVOPS 08/05/21 Machine Heel Seat Laster Relationship Specialty Start Date End Date Cas Dowell PCP - General Family Medicine 02/20/14 Sai Perez MD [address] [place] [address] Primary Staff Physician Cardiology 07/21/21 Rubens Tim, DO [address] [place] [address] Referring DEVOPS 08/05/21 Machine Heel Seat Laster Relationship Specialty Start Date End Date Cas Dowell PCP - General Family Medicine 02/20/14 Sai Perez MD [address] [place] [address] Primary Staff Physician Cardiology 07/21/21 Rubens Tim, DO [address] [place] [address] Referring DEVOPS 08/05/21 Machine Heel Seat Laster Relationship Specialty Start Date End Date Cas Dowell PCP - General Family Medicine 02/20/14 Sai Perez MD [address] [place] [address] Primary Staff Physician Cardiology 07/21/21 Rubens Tim, DO [address] [place], [place] [address] Referring DEVOPS 08/05/21 Machine Heel Seat Laster Relationship Specialty Start Date End Date Cas Dowell PCP - General Family Medicine 02/20/14 Sai Perez MD [address] [place] [address] Primary Staff Physician Cardiology 07/21/21 Rubens Tim, DO [address] [place], [place] [address] Referring DEVOPS 08/05/21 Machine Heel Seat Laster Relationship Specialty Start Date End Date Cas Dowell PCP - General Family Medicine 02/20/14 Sai Perez MD [address] [place] [address] Primary Staff Physician Cardiology 07/21/21 Rubens Tim, DO [address] [place], [facility] Referring DEVOPS 08/05/21 Machine Heel Seat Laster Relationship Specialty Start Date End Date Cas Dowell PCP - General Family Medicine 02/20/14 Sai Perez MD [address] [place] [address] Primary Staff Physician Cardiology 07/21/21 Rubens Tim, [address] [facility] [address] [place], [place] [id number] Referring DEVOPS 08/05/21 Machine Heel Seat Laster Relationship Specialty Start Date End Date Cas Dowell PCP - General Family Medicine 02/20/14 Sai Perez MD [address] [place] [address] Primary Staff Physician Cardiology 07/21/21 Rubens Tim DO [address] [place] [address] [place] [address] Referring DEVOPS 08/05/21 Machine Heel Seat Laster Relationship Specialty Start Date End Date Cas Dowell MD [address] [place] [address] PCP - General Family Medicine 11/18/20 Machine Heel Seat Laster Relationship Specialty Start Date End Date aCs Dowell MD PCP - General Family Medicine 12/06/22 Machine Heel Seat Laster Relationship Specialty Start Date End Date Cas Dowell MD [address] [place] [address] PCP - General Family Medicine 11/18/20 Machine Heel Seat Laster Relationship Specialty Start Date End Date Cas Dowell PCP - General Family Medicine 02/20/14 Sai Perez MD [address] [place], [place] [address] Primary Staff Physician Cardiology 07/21/21 Rubens Tim DO [address] [place] [address] Referring Transportation Maintenance Worker 08/05/21 Machine Heel Seat Laster Relationship Specialty Start Date End Date Cas Dowell PCP - General Family Medicine 02/20/14 Sai Perez MD [address] [place], [place] [address] Primary Staff Physician Cardiology 07/21/21 Rubens Tim DO [address] [place] [address] Referring Transportation Maintenance Worker 08/05/21 Machine Heel Seat Laster Relationship Specialty Start Date End Date Cas Dowell MD [address] [place] [id number] PCP - General Family Medicine 04/09/23 Machine Heel Seat Laster Relationship Specialty Start Date End Date Cas Dowell MD [address] [place] [id number] PCP - General Family Medicine 04/09/23 Machine Heel Seat Laster Relationship Specialty Start Date End Date Cas Dowell MD [address] [place] [id number] PCP - General Family Medicine 04/09/23 Source Comments (unrecognize d section and content) In the event this informatio n is protected by the Federal Confidentiality of Alcohol and Drug Abuse Patient Records regulations: The Federal rules restrict any use of the information to criminally investigate or prosecute any alcohol or drug abuse patient.[facility] Center[facility] the event this information is protected by the Federal Confidentiality of Alcohol and Drug Abuse Patient Records regulations: The Federal rules restrict any use of the information to criminally investigate or prosecute any alcohol or drug abuse patient.[facility] CenterIn the event this information is protected by the Federal Confidentiality of Alcohol and Drug Abuse Patient Records regulations: The Federal rules restrict any use of the information to criminally investigate or prosecute any alcohol or drug abuse patient.[facility] CenterIn the event this information is protected by the Federal Confidentiality of Alcohol and Drug Abuse Patient Records regulations: The Federal rules restrict any use of the information to criminally investigate or prosecute any alcohol or drug abuse patient.[facility] CenterIn the event this information is protected by the Federal Confidentiality of Alcohol and Drug Abuse Patient Records regulations: The Federal rules restrict any use of the information to criminally investigate or prosecute any alcohol or drug abuse patient.[facility] CenterIn the event this information is protected by the Federal Confidentiality of Alcohol and Drug Abuse Patient Records regulations: The Federal rules restrict any use of the information to criminally investigate or prosecute any alcohol or drug abuse patient.[facility] CenterIn the event this information is protected by the Federal Confidentiality of Alcohol and Drug Abuse Patient Records regulations: The Federal rules restrict any use of the information to criminally investigate or prosecute any alcohol or drug abuse patient.[facility] CenterIn the event this information is protected by the Federal Confidentiality of Alcohol and Drug Abuse Patient Records regulations: The Federal rules restrict any use of the information to criminally investigate or prosecute any alcohol or drug abuse patient.[facility] CenterIn the event this information is protected by the Federal Confidentiality of Alcohol and Drug Abuse Patient Records regulations: The Federal rules restrict any use of the information to criminally investigate or prosecute any alcohol or drug abuse patient.[facility] CenterIn the event this information is protected by the Federal Confidentiality of Alcohol and Drug Abuse Patient Records regulations: The Federal rules restrict any use of the information to criminally investigate or prosecute any alcohol or drug abuse patient.[facility] CenterIn the event this information is protected by the Federal Confidentiality of Alcohol and Drug Abuse Patient Records regulations: The Federal rules restrict any use of the information to criminally investigate or prosecute any alcohol or drug abuse patient.[facility] CenterIn the event this information is protected by the Federal Confidentiality of Alcohol and Drug Abuse Patient Records regulations: The Federal rules restrict any use of the information to criminally investigate or prosecute any alcohol or drug abuse patient.[facility] CenterIn the event this information is protected by the Federal Confidentiality of Alcohol and Drug Abuse Patient Records regulations: The Federal rules restrict any use of the information to criminally investigate or prosecute any alcohol or drug abuse patient.[facility] CenterIn the event this information is protected by the Federal Confidentiality of Alcohol and Drug Abuse Patient Records regulations: The Federal rules restrict any use of the information to criminally investigate or prosecute any alcohol or drug abuse patient.[facility] CenterIn the event this information is protected by the Federal Confidentiality of Alcohol and Drug Abuse Patient Records regulations: The Federal rules restrict any use of the information to criminally investigate or prosecute any alcohol or drug abuse patient.[facility] CenterIn the event this information is protected by the Federal Confidentiality of Alcohol and Drug Abuse Patient Records regulations: The Federal rules restrict any use of the information to criminally investigate or prosecute any alcohol or drug abuse patient.[facility] CenterIn the event this information is protected by the Federal Confidentiality of Alcohol and Drug Abuse Patient Records regulations: The Federal rules restrict any use of the information to criminally investigate or prosecute any alcohol or drug abuse patient.[facility] CenterIn the event this information is protected by the Federal Confidentiality of Alcohol and Drug Abuse Patient Records regulations: The Federal rules restrict any use of the information to criminally investigate or prosecute any alcohol or drug abuse patient.[facility] CenterIn the event this information is protected by the Federal Confidentiality of Alcohol and Drug Abuse Patient Records regulations: The Federal rules restrict any use of the information to criminally investigate or prosecute any alcohol or drug abuse patient.[facility] CenterIn the event this information is protected by the Federal Confidentiality of Alcohol and Drug Abuse Patient Records regulations: The Federal rules restrict any use of the information to criminally investigate or prosecute any alcohol or drug abuse patient.[facility] CenterIn the event this information is protected by the Federal Confidentiality of Alcohol and Drug Abuse Patient Records regulations: The Federal rules restrict any use of the information to criminally investigate or prosecute any alcohol or drug abuse patient.[facility] CenterIn the event this information is protected by the Federal Confidentiality of Alcohol and Drug Abuse Patient Records regulations: The Federal rules restrict any use of the information to criminally investigate or prosecute any alcohol or drug abuse patient.[facility] CenterIn the event this information is protected by the Federal Confidentiality of Alcohol and Drug Abuse Patient Records regulations: The Federal rules restrict any use of the information to criminally investigate or prosecute any alcohol or drug abuse patient.[facility] CenterIn the event this information is protected by the Federal Confidentiality of Alcohol and Drug Abuse Patient Records regulations: The Federal rules restrict any use of the information to criminally investigate or prosecute any alcohol or drug abuse patient.[facility] CenterIn the event this information is protected by the Federal Confidentiality of Alcohol and Drug Abuse Patient Records regulations: The Federal rules restrict any use of the information to criminally investigate or prosecute any alcohol or drug abuse patient.[facility] CenterIn the event this information is protected by the Federal Confidentiality of Alcohol and Drug Abuse Patient Records regulations: The Federal rules restrict any use of the information to criminally investigate or prosecute any alcohol or drug abuse patient.[facility] CenterIn the event this information is protected by the Federal Confidentiality of Alcohol and Drug Abuse Patient Records regulations: The Federal rules restrict any use of the information to criminally investigate or prosecute any alcohol or drug abuse patient.[facility] CenterIn the event this information is protected by the Federal Confidentiality of Alcohol and Drug Abuse Patient Records regulations: The Federal rules restrict any use of the information to criminally investigate or prosecute any alcohol or drug abuse patient.[facility] CenterIn the event this information is protected by the Federal Confidentiality of Alcohol and Drug Abuse Patient Records regulations: The Federal rules restrict any use of the information to criminally investigate or prosecute any alcohol or drug abuse patient.[facility] CenterIn the event this information is protected by the Federal Confidentiality of Alcohol and Drug Abuse Patient Records regulations: The Federal rules restrict any use of the information to criminally investigate or prosecute any alcohol or drug abuse patient.[facility] CenterIn the event this information is protected by the Federal Confidentiality of Alcohol and Drug Abuse Patient Records regulations: The Federal rules restrict any use of the information to criminally investigate or prosecute any alcohol or drug abuse patient.[facility] CenterIn the event this information is protected by the Federal Confidentiality of Alcohol and Drug Abuse Patient Records regulations: The Federal rules restrict any use of the information to criminally investigate or prosecute any alcohol or drug abuse patient.[facility] CenterIn the event this information is protected by the Federal Confidentiality of Alcohol and Drug Abuse Patient Records regulations: The Federal rules restrict any use of the information to criminally investigate or prosecute any alcohol or drug abuse patient.[facility] CenterIn the event this information is protected by the Federal Confidentiality of Alcohol and Drug Abuse Patient Records regulations: The Federal rules restrict any use of the information to criminally investigate or prosecute any alcohol or drug abuse patient.[facility] CenterIn the event this information is protected by the Federal Confidentiality of Alcohol and Drug Abuse Patient Records regulations: The Federal rules restrict any use of the information to criminally investigate or prosecute any alcohol or drug abuse patient.[facility] CenterIn the event this information is protected by the Federal Confidentiality of Alcohol and Drug Abuse Patient Records regulations: The Federal rules restrict any use of the information to criminally investigate or prosecute any alcohol or drug abuse patient.[facility] CenterIn the event this information is protected by the Federal Confidentiality of Alcohol and Drug Abuse Patient Records regulations: The Federal rules restrict any use of the information to criminally investigate or prosecute any alcohol or drug abuse patient.[facility] CenterIn the event this information is protected by the Federal Confidentiality of Alcohol and Drug Abuse Patient Records regulations: The Federal rules restrict any use of the information to criminally investigate or prosecute any alcohol or drug abuse patient.[facility] CenterIn the event this information is protected by the Federal Confidentiality of Alcohol and Drug Abuse Patient Records regulations: The Federal rules restrict any use of the information to criminally investigate or prosecute any alcohol or drug abuse patient.[facility] CenterIn the event this information is protected by the Federal Confidentiality of Alcohol and Drug Abuse Patient Records regulations: The Federal rules restrict any use of the information to criminally investigate or prosecute any alcohol or drug abuse patient.[facility] CenterIn the event this information is protected by the Federal Confidentiality of Alcohol and Drug Abuse Patient Records regulations: The Federal rules restrict any use of the information to criminally investigate or prosecute any alcohol or drug abuse patient.[facility] CenterIn the event this information is protected by the Federal Confidentiality of Alcohol and Drug Abuse Patient Records regulations: The Federal rules restrict any use of the information to criminally investigate or prosecute any alcohol or drug abuse patient.[facility] CenterIn the event this information is protected by the Federal Confidentiality of Alcohol and Drug Abuse Patient Records regulations: The Federal rules restrict any use of the information to criminally investigate or prosecute any alcohol or drug abuse patient.[facility] CenterIn the event this information is protected by the Federal Confidentiality of Alcohol and Drug Abuse Patient Records regulations: The Federal rules restrict any use of the information to criminally investigate or prosecute any alcohol or drug abuse patient.[facility] CenterIn the event this information is protected by the Federal Confidentiality of Alcohol and Drug Abuse Patient Records regulations: The Federal rules restrict any use of the information to criminally investigate or prosecute any alcohol or drug abuse patient.[facility] CenterIn the event this information is protected by the Federal Confidentiality of Alcohol and Drug Abuse Patient Records regulations: The Federal rules restrict any use of the information to criminally investigate or prosecute any alcohol or drug abuse patient.[facility] CenterIn the event this information is protected by the Federal Confidentiality of Alcohol and Drug Abuse Patient Records regulations: The Federal rules restrict any use of the information to criminally investigate or prosecute any alcohol or drug abuse patient.[facility] CenterIn the event this information is protected by the Federal Confidentiality of Alcohol and Drug Abuse Patient Records regulations: The Federal rules restrict any use of the information to criminally investigate or prosecute any alcohol or drug abuse patient.[facility] CenterIn the event this information is protected by the Federal Confidentiality of Alcohol and Drug Abuse Patient Records regulations: The Federal rules restrict any use of the information to criminally investigate or prosecute any alcohol or drug abuse patient.[facility] CenterIn the event this information is protected by the Federal Confidentiality of Alcohol and Drug Abuse Patient Records regulations: The Federal rules restrict any use of the information to criminally investigate or prosecute any alcohol or drug abuse patient.[facility] CenterIn the event this information is protected by the Federal Confidentiality of Alcohol and Drug Abuse Patient Records regulations: The Federal rules restrict any use of the information to criminally investigate or prosecute any alcohol or drug abuse patient.[facility] CenterIn the event this information is protected by the Federal Confidentiality of Alcohol and Drug Abuse Patient Records regulations: The Federal rules restrict any use of the information to criminally investigate or prosecute any alcohol or drug abuse patient.[facility] CenterIn the event this information is protected by the Federal Confidentiality of Alcohol and Drug Abuse Patient Records regulations: The Federal rules restrict any use of the information to criminally investigate or prosecute any alcohol or drug abuse patient.[facility] CenterIn the event this information is protected by the Federal Confidentiality of Alcohol and Drug Abuse Patient Records regulations: The Federal rules restrict any use of the information to criminally investigate or prosecute any alcohol or drug abuse patient.[facility] CenterIn the event this information is protected by the Federal Confidentiality of Alcohol and Drug Abuse Patient Records regulations: The Federal rules restrict any use of the information to criminally investigate or prosecute any alcohol or drug abuse patient.[facility] CenterIn the event this information is protected by the Federal Confidentiality of Alcohol and Drug Abuse Patient Records regulations: The Federal rules restrict any use of the information to criminally investigate or prosecute any alcohol or drug abuse patient.[facility] CenterIn the event this information is protected by the Federal Confidentiality of Alcohol and Drug Abuse Patient Records regulations: The Federal rules restrict any use of the information to criminally investigate or prosecute any alcohol or drug abuse patient.[facility] CenterIn the event this information is protected by the Federal Confidentiality of Alcohol and Drug Abuse Patient Records regulations: The Federal rules restrict any use of the information to criminally investigate or prosecute any alcohol or drug abuse patient.[facility] CenterIn the event this information is protected by the Federal Confidentiality of Alcohol and Drug Abuse Patient Records regulations: The Federal rules restrict any use of the information to criminally investigate or prosecute any alcohol or drug abuse patient.[facility] CenterIn the event this information is protected by the Federal Confidentiality of Alcohol and Drug Abuse Patient Records regulations: The Federal rules restrict any use of the information to criminally investigate or prosecute any alcohol or drug abuse patient.[facility] CenterIn the event this information is protected by the Federal Confidentiality of Alcohol and Drug Abuse Patient Records regulations: The Federal rules restrict any use of the information to criminally investigate or prosecute any alcohol or drug abuse patient.[facility] CenterIn the event this information is protected by the Federal Confidentiality of Alcohol and Drug Abuse Patient Records regulations: The Federal rules restrict any use of the information to criminally investigate or prosecute any alcohol or drug abuse patient.[facility] CenterIn the event this information is protected by the Federal Confidentiality of Alcohol and Drug Abuse Patient Records regulations: The Federal rules restrict any use of the information to criminally investigate or prosecute any alcohol or drug abuse patient.[facility] CenterIn the event this information is protected by the Federal Confidentiality of Alcohol and Drug Abuse Patient Records regulations: The Federal rules restrict any use of the information to criminally investigate or prosecute any alcohol or drug abuse patient.[facility] CenterIn the event this information is protected by the Federal Confidentiality of Alcohol and Drug Abuse Patient Records regulations: The Federal rules restrict any use of the information to criminally investigate or prosecute any alcohol or drug abuse patient.[facility] CenterIn the event this information is protected by the Federal Confidentiality of Alcohol and Drug Abuse Patient Records regulations: The Federal rules restrict any use of the information to criminally investigate or prosecute any alcohol or drug abuse patient.[facility] CenterIn the event this information is protected by the Federal Confidentiality of Alcohol and Drug Abuse Patient Records regulations: The Federal rules restrict any use of the information to criminally investigate or prosecute any alcohol or drug abuse patient.[facility] CenterIn the event this information is protected by the Federal Confidentiality of Alcohol and Drug Abuse Patient Records regulations: The Federal rules restrict any use of the information to criminally investigate or prosecute any alcohol or drug abuse patient.[facility] CenterIn the event this information is protected by the Federal Confidentiality of Alcohol and Drug Abuse Patient Records regulations: The Federal rules restrict any use of the information to criminally investigate or prosecute any alcohol or drug abuse patient.[facility] CenterIn the event this information is protected by the Federal Confidentiality of Alcohol and Drug Abuse Patient Records regulations: The Federal rules restrict any use of the information to criminally investigate or prosecute any alcohol or drug abuse patient.[facility] CenterIn the event this information is protected by the Federal Confidentiality of Alcohol and Drug Abuse Patient Records regulations: The Federal rules restrict any use of the information to criminally investigate or prosecute any alcohol or drug abuse patient.[facility] CenterIn the event this information is protected by the Federal Confidentiality of Alcohol and Drug Abuse Patient Records regulations: The Federal rules restrict any use of the information to criminally investigate or prosecute any alcohol or drug abuse patient.[facility] CenterIn the event this information is protected by the Federal Confidentiality of Alcohol and Drug Abuse Patient Records regulations: The Federal rules restrict any use of the information to criminally investigate or prosecute any alcohol or drug abuse patient.[facility] CenterIn the event this information is protected by the Federal Confidentiality of Alcohol and Drug Abuse Patient Records regulations: The Federal rules restrict any use of the information to criminally investigate or prosecute any alcohol or drug abuse patient.[facility] CenterIn the event this information is protected by the Federal Confidentiality of Alcohol and Drug Abuse Patient Records regulations: The Federal rules restrict any use of the information to criminally investigate or prosecute any alcohol or drug abuse patient.[facility] CenterIn the event this information is protected by the Federal Confidentiality of Alcohol and Drug Abuse Patient Records regulations: The Federal rules restrict any use of the information to criminally investigate or prosecute any alcohol or drug abuse patient.[facility] CenterIn the event this information is protected by the Federal Confidentiality of Alcohol and Drug Abuse Patient Records regulations: The Federal rules restrict any use of the information to criminally investigate or prosecute any alcohol or drug abuse patient.[facility] CenterIn the event this information is protected by the Federal Confidentiality of Alcohol and Drug Abuse Patient Records regulations: The Federal rules restrict any use of the information to criminally investigate or prosecute any alcohol or drug abuse patient.[facility] CenterIn the event this information is protected by the Federal Confidentiality of Alcohol and Drug Abuse Patient Records regulations: The Federal rules restrict any use of the information to criminally investigate or prosecute any alcohol or drug abuse patient.[facility] CenterIn the event this information is protected by the Federal Confidentiality of Alcohol and Drug Abuse Patient Records regulations: The Federal rules restrict any use of the information to criminally investigate or prosecute any alcohol or drug abuse patient.[facility] CenterIn the event this information is protected by the Federal Confidentiality of Alcohol and Drug Abuse Patient Records regulations: The Federal rules restrict any use of the information to criminally investigate or prosecute any alcohol or drug abuse patient.[facility] CenterIn the event this information is protected by the Federal Confidentiality of Alcohol and Drug Abuse Patient Records regulations: The Federal rules restrict any use of the information to criminally investigate or prosecute any alcohol or drug abuse patient.[facility] CenterIn the event this information is protected by the Federal Confidentiality of Alcohol and Drug Abuse Patient Records regulations: The Federal rules restrict any use of the information to criminally investigate or prosecute any alcohol or drug abuse patient.[facility] CenterIn the event this information is protected by the Federal Confidentiality of Alcohol and Drug Abuse Patient Records regulations: The Federal rules restrict any use of the information to criminally investigate or prosecute any alcohol or drug abuse patient.[facility] CenterIn the event this information is protected by the Federal Confidentiality of Alcohol and Drug Abuse Patient Records regulations: The Federal rules restrict any use of the information to criminally investigate or prosecute any alcohol or drug abuse patient.[facility] CenterIn the event this information is protected by the Federal Confidentiality of Alcohol and Drug Abuse Patient Records regulations: The Federal rules restrict any use of the information to criminally investigate or prosecute any alcohol or drug abuse patient.[facility] FOR RECORDS PERTAINING TO PATIENTS WHO ARE [...] BE BASED ON THE PRIMARY CLINICAL RECORDS. [facility] [employer] [facility]. provides no warranty or guarantee of the accuracy or completeness of information in this document.
[2023-11-27 11:09] LABS: Age Gdln ACOG Testing Note (.); HPV Aptima Negative (Negative); IGP, Aptima HPV, rfx 16/18,45 Note (.)
== END 2023-11-20 20:11 | disposition home or self-care (01) ==
LOC: LAB 20:10
PROVIDERS: PCP Family Medicine; Visit Provider Obstetrics & Gynecology
DX: Z01.419 Encounter for gynecological examination (general) (routine) without abnormal findings (principal)
CPT/HCPCS: 88175

== ENCOUNTER 2023-11-26 07:32 | Outpatient (OUT) | payer BC, SELFPAY ==
--- NOTE | 2023-11-26 07:37 | US_ITS ---
The [address] [address] Patient Name: LEANA TRAN MRN: [id number] date: 1985 Sex: F Assigned Patient Location: Current Patient Location: Accession/Order Number: [id number] Exam Date: 11/26/2023 07:40 Report Date: 11/27/2023 10:36 At the request of: RODOLFO VAZQUEZ Procedure: US pelvis w/ transvaginal EXAMINATION: US pelvis w/ transvaginal HISTORY: Polycystic Ovarian Syndrome E28.2 COMPARISON: 08/30/2023 FINDINGS: The uterus is surgically absent The right ovary measures 2.3 x 2.5 x 2.3 cm. Normal color Doppler flow. Area of anechoic echogenicity with some low-level echoes measuring 1.7 x 2.7 x 1.9 cm, no color flow. I favor a cyst The left ovary measures 4.0 x 3.6 x 2.8 cm. Normal color Doppler flow. Multiple areas of anechoic echogenicity measuring up to 1.5 cm, cyst versus follicle US/US pelvis w/ transvaginal IMPRESSION: Bilateral ovarian cysts, not meeting criteria for polycystic ovarian morphology Electronically authenticated by: BELÉN ANDRADE Date: 11/27/2023 10:36
--- OUTSIDE RECORDS SUMMARY | 2023-11-26 07:39 | XMS_ITS | CCD ---
Author Organization [facility] Care Team Providers Care Inletter Name Role Phone Cas Dowell MD Primary Care Provider CAS DOWELL Primary Care Unavailabl e CANDIDO DAVID Referring Unavailable CAS DOWELL Primary Care Unavailabl e NABOR YANCEY Referring Unavailable Cas Dowell MD Primary Care Provider Cas Dowlel MD Primary Care Provider Cas Dowell Primary Care Provider Ana PEREZ, Sai Unavailable Rubens Tim Unavailable Rubens Tim DO Unavailable Cas Dowell MD Primary Care Provider Cas Dowell Primary Care Provider Ana PEREZ, Sai Unavailable Rubens Tim DO Unavailable Cas Dowell Primary Care Provider Rubens Tim DO Unavailable Cas Dowell Primary Care Provider [phone] CAS DOWELL Primary Care Physician CAS DOWELL Primary Care Unavailabl e Cas Dowell Primary Care Provider Ana PEREZ, Sai Unavailable Rubens Tim DO Unavailable Cas Dowell MD Primary Care Provider [place] DO, Rubens R Unavailable MUNIR, FUENTES Referring Unavailable NADERER, CAS Guzman Primary Care Unavailable ANA, SAI Referring Unavailable NADERER, CAS Guzman Primary Care Unavailable GUZZO, PETER Referring Unavailable NADERER, CAS Guzman Primary Care Unavailable ABHYANKLISA, FUENTES Referring Unavailable NADERER, CAS Guzman Primary [...] Unavailable GLENROY ., DR REYNOLDS Admitting Unavailable KENNYWWASiri, H Primary Care Unavailable FAWWAD, BLACKBURN H Attending Unavailable FAWWAD, SHAIKH Janet Admitting Unavailable KELSIE, DR CORIE Espinosa Consulting Unavailabl e REINECK, DR CORIE Espinosa Attending Unavailabl e REINECK, DR CORIE Espinosa Admitting Unavailabl e NADERER, DR CAS Guzman Primary Care Unavailable PAY ., DR BURDEN Consulting Unavailable DARYN, AYAKA Consulting Unavailable CENTER [place], DR BELÉN Hatfield Consulting Unavailable MATILDE ., MARICEL Attending Unavailable MATILDE ., MARICEL Admitting Unavailable NADERER, DR CAS Guzman Primary Care Unavailable MORTEZA ., YANIRA Consulting Unavailable DAMION, JIMMY Starkey Consulting Unavailable Ana PEREZ, Sai Unavailable CHAYO MARTINS Admitting Unavailable ELIEZER, CHAYO CASILLAS Attending Unavailable NADERER, CAS ALEX Primary Care Unavailabl e FRANTZ, LIV Consulting Unavailable NADERER, CAS ALVERTON Primary Care Unavailabl e SEAN MOSES Attending Unavailable NADERER, CAS GUTIERREZONY Primary Care Unavailabl e NADERER, CAS GUTIERREZONY Primary Care Unavailabl e NADERER, CAS ALEX Primary Care Unavailabl e YAOAKILA SCOTT Referring Unavailable NADERER, CAS GUTIERREZONY Primary Care Unavailabl e YAO, KAREN Referring Unavailable Nadelr , Cas Primary Care Provider [phone] Cas Dowell MD Primary Care Provider Cas Dowell Primary Care Provider ABHYANKAR, FUENTES Referring Unavailable ABHYANKAR, FUENTES Attending Unavailable NADCAS HOWE Primary Care Unavailable ABHYANKAR, FUENTES Referring Unavailable NADERESuzy, CAS Guzman Primary Care Unavailable Selma Choe Attending Unavailable NILLTesfaye R Attending Unavailable NILL, Tesfaye R Attending Unavailable NADERERCAS Referring Unavailable NILLTesfaye R Attending Unavailable William PEREZ, Phillip Guerra Attending Unavailable Grayson PEREZ, Cas Gutierrezony Primary Care Unavail able William PEREZ, Phillip Guerra Attending Unavailable Grayson PEREZ, Cas [place] Primary Care Unavail able William PEREZ, Phillip Guerra Attending Unavailable Grayson PEREZ, Cas Gutierrezony Primary Care Unavail able William PEREZ, Phillip Guerra Attending Unavailable Cas Dowell MDony Primary Care Unavail able Glenroy MADRIGAL, Rubens R Unavailable Cas Dowell MD Primary Care Provider [phone] ANGELIKA CORONEL Attending Unavailable VIPUL, ABIEL Referring Unavailable VIPUL, ABIEL Referring Unavailable KARABIN, MACRINA Attending Unavailable VIPUL, ABIEL Referring Unavailable ABEL, STEPHON Referring Unavailable VIPUL, ABIEL Referring Unavailable ABEL, STEPHON Referring Unavailable ABEL, STEPHON Referring Unavailable ABEL, STEPHON Referring Unavailable ABEL, STEPHON Referring Unavailable ABEL, STEPHON Referring Unavailable ABEL, STEPHON Referring Unavailable KARABIN, MACRINA Attending Unavailable ABEL, STEPHON Referring Unavailable NADERER, CAS Attending Unavailable DELILAH, JODI Lewis Attending Unavailable GLENROY, RUBENS Attending Unavailable GLENROY, RUBENS Attending Unavailable NADERER, CAS Attending Unavailable NADERER, CAS Attending Unavailable NADERER, CAS Attending Unavailable RAMBASEK, CHRISTY Razo Attending Unavailable NADERER, CAS Referring Unavailable GLENROY, RUBENS Attending Unavailable Cas Dowell MD Primary Care Provider SARAH BEST Attending Unavailable NADERER, CAS Referring Unavailable NADERER, CAS Primary Care Unavailable MARNI FLOWERS Attending Unavailable NADERER, CAS Referring Unavailable NADERER, CAS Primary Care Unavailable AKILA YAO Attending Unavailable NADERESuzy, CAS Referring Unavailable NADERESuzy, CAS Primary Care Unavailable Allergies Allergy Classification Reported Allergen(s) Allergy Type Date of Onset Reaction(s) Facility Aluminum aspirin (1 source) Aluminum aspirin Drug Allergy 09-04-19 12 [facility] Cephalosporins (antibiotic) (2 sources) Cefaclor Drug Allergy 09-04-19 12 Shortness Of Breath, Rash [employer] Phone: drospirenone / Ethinyl Estradiol (1 source) drospirenone / Ethinyl Estradiol Drug Allergy 09-04-19 12 [employer] Phone: Ethinyl Estradiol / Norethindrone (1 source) Ethinyl Estradiol / Norethindrone Drug Allergy 09-04-19 12 [employer] Phone: Latex (1 source) Latex Substance Allergy 09-04-19 12 Swelling, Rash [employer] Phone: Macrolides (antibiotic) (1 source) Erythromycin Drug Allergy 09-04-19 12 Shortness Of Breath [employer] Phone: NSAIDs (1 source) Ibuprofen Drug Allergy 09-04-19 12 [employer] Phone: Penicillins (antibiotic) (1 source) Penicillins Drug Allergy 09-04-19 12 Rash [employer] Phone: rofecoxib (1 source) rofecoxib Drug Allergy 09-04-19 12 [employer] Phone: Sulfonamides (antibiotic) (1 source) Sulfonamides (Antibiotic) Drug Allergy 03-21-19 16 [facility] Unclassified (8 sources) Clindamycin/Lincomy juan Propensity to adverse reactions to drug 09-04-19 12 Rash [employer] Phone: Unclassified (20 sources) Iodides; Translations: [IODIDES] Propensity to adverse reactions to drug 09-04-19 12 Unknown, Anaphylaxis [employer] Phone: Unclassified (16 sources) Lavender Oil Propensity to adverse reactions to drug 06-14-19 21 Anaphylaxis [employer] (20 sources) Aluminum aspirin; Translations: [ASPIRIN] Drug Allergy 09-04-19 12 Rash, Angioedema, Unknown [employer] (20 sources) Cefaclor; Translations: [cefaclor] Drug Allergy 09-04-19 12 Shortness Of Breath, Anaphylaxis, Swelling, Unknown (qualifier value), Dyspnea (finding) [employer] Phone: (20 sources) Cefuroxime; Translations: [CEFUROXIME AXETIL] Drug Allergy 09-04-19 12 Rash, Unknown, Shortness of Breath [employer] Phone: (20 sources) drospirenone / Ethinyl Estradiol; Translations: [DROSPIRENONE-ETHIN YL ESTRADIOL] Drug Allergy 09-04-19 12 Unknown, Other: See Comments [employer] Phone: (20 sources) Erythromycin; Translations: [ERYTHROMYCIN] Drug Allergy 09-04-19 12 Shortness Of Breath, Swelling, Unknown [employer] Phone: (10 sources) Ethinyl Estradiol / Norethindrone Drug Allergy 09-04-19 12 [employer] Phone: (20 sources) Ibuprofen; Translations: [ibuprofen] Drug Allergy 09-04-19 12 Unknown (qualifier value), Rash, Unknown, Dyspnea (finding) [facility] (20 sources) Latex; Translations: [LATEX] Propensity to adverse reactions to drug 09-04-19 12 Swelling, Rash, Itching, Unknown, Eruption of skin (disorder) [employer] Phone: (10 sources) Penicillins; Translations: [PENICILLINS] Propensity to adverse reactions to drug 09-04-19 12 Rash [employer] Phone: (20 sources) rofecoxib Drug Allergy 09-04-19 12 Unknown, Rash [employer] Phone: (6 sources) Sulfonamides (Antibiotic) Propensity to adverse reactions to drug 03-21-19 16 [facility] [employer] (20 sources) Aspirin; Translations: [aspirin] Drug Allergy 09-04-19 12 Unknown, Angioedema, Unknown (qualifier value), Rash, Weal (disorder) [facility] (20 sources) Clindamycin; Translations: [clindamycin] Drug Allergy 02-23-19 15 Swelling, Shortness of Breath, Rash, Unknown (qualifier value), Eruption of skin (disorder) [facility] (20 sources) Contrast media; Translations: [CONTRAST DYE] Drug Allergy 09-04-19 12 Anaphylaxis [facility] (20 sources) Naproxen; Translations: [NAPROXEN] Drug Allergy 09-07-19 21 Swelling, Angioedema [facility] (19 sources) Penicillins Propensity to adverse reactions to drug 02-23-19 15 Rash, Itching [facility] (20 sources) Sulfonamides (Antibiotic); Translations: [SULFA (SULFONAMIDE ANTIBIOTICS)] Drug Allergy 03-21-19 16 Swelling, Shortness of Breath [facility] (20 sources) Lavender (Lavandula Angustifolia); Translations: [LAVENDER (LAVANDULA ANGUSTIFOLIA)] Drug Allergy 06-14-19 21 Anaphylaxis [facility] (4 sources) Eucalyptus oil Drug Allergy 10-24-19 21 [facility] (20 sources) gatifloxacin; Translations: [GATIFLOXACIN] Drug Allergy 12-22-19 15 Diarrhea [facility] Work Phone: (18 sources) Norethindrone-Ethin Estradiol; Translations: [NORETHINDRONE-ETHI N ESTRADIOL] Propensity to adverse reactions to drug 06-09-19 22 Unknown [facility] (20 sources) Eucalyptus extract; Translations: [EUCALYPTUS] Drug Allergy 10-24-19 21 Anaphylaxis [facility] (20 sources) levoFLOXacin; Translations: [LEVOFLOXACIN] Drug Allergy 11-12-19 21 Rash [facility] (20 sources) metroNIDAZOLE; Translations: [METRONIDAZOLE] Drug Allergy 03-02-19 22 Unknown [facility] (20 sources) Sulfamethoxazole / Trimethoprim; Translations: [SULFAMETHOXAZOLE-T RIMETHOPRIM] Drug Allergy 01-24-20 14 Unknown, Other (See Comments) [facility] (20 sources) Fish; Translations: [FISH CONTAINING PRODUCTS] Drug Allergy 07-26-19 22 [facility] Work Phone: (20 sources) Shellfish; Translations: [SHELLFISH DERIVED] Drug Allergy 07-26-19 [facility] Work Phone: (20 sources) Penicillins Propensity to adverse reactions to drug 09-04-19 12 Rash, Itching [facility] (20 sources) Penicillin G; Translations: [PENICILLIN G BENZATHINE] Drug Allergy 08-19-19 22 Unknown [facility] Work Phone: (7 sources) Iodine; Translations: [iodine] Drug Allergy 05-25-19 23 Unknown (qualifier value) [facility] (7 sources) Macrolides (Antibiotic); Translations: [macrolide antibiotics] Drug allergy 09-04-19 12 Allergy - specialty (qualifier value) [facility] (7 sources) Penicillin; Translations: [penicillin] Drug Allergy Unknown (qualifier value), Dyspnea (finding) [facility] (7 sources) Sulfonamides (Antibiotic); Translations: [sulfa drugs] Drug allergy Allergy - specialty (qualifier value) [facility] (20 sources) valACYclovir; Translations: [valacyclovir] Drug Allergy 10-06-19 22 Anaphylaxis (disorder), Shortness Of Breath, Anaphylaxis [facility] (18 sources) Povidone-Iodine; Translations: [povidone iodine topical] Drug Allergy 05-25-19 23 Eruption of skin (disorder), Rash [facility] (9 sources) Seafood Propensity to adverse reactions to drug 01-09-20 22 Hives, Rash [facility] Phone: (12 sources) rofecoxib; Translations: [ROFECOXIB] Drug Allergy 09-04-19 12 Rash, Unknown [facility] (4 sources) IODINATED CONTRAST MEDIA; Translations: [IODINATED CONTRAST MEDIA] Propensity to adverse reactions to drug (disorder) 02-23-19 15 [facility] (1 source) Aspirin Drug Allergy 03-12-19 15 [facility] (3 sources) Cefaclor; Translations: [Ceclor] Drug Allergy 03-12-19 15 [facility] (2 sources) Cefuroxime; Translations: [Ceftin] Drug Allergy 03-12-19 15 [facility] (1 source) Clindamycin Drug Allergy 03-12-19 15 [facility] (1 source) Erythromycin Drug Allergy 03-12-19 15 [facility] (1 source) Eucalyptus extract Drug Allergy 10-24-19 21 [facility] (1 source) gatifloxacin Drug Allergy 12-22-19 15 [facility] (2 sources) Ibuprofen; Translations: [Motrin] Drug Allergy [facility] (1 source) Iodine (And Iodine Containting Drugs) Drug allergy (disorder) 03-12-19 15 [facility] (1 source) Latex Drug allergy (disorder) 03-12-19 15 [facility] (1 source) levoFLOXacin Drug Allergy 11-12-19 21 [facility] (1 source) Naproxen Drug Allergy 08-07-19 21 [facility] (1 source) Penicillins Drug allergy (disorder) 03-12-19 15 [facility] (1 source) rofecoxib Drug Allergy 03-12-19 15 [facility] (1 source) Sulfamethoxazole / Trimethoprim Drug Allergy 02-23-19 21 [facility] (1 source) Sulfonamides (Antibiotic) Drug allergy (disorder) 03-12-19 15 [facility] (1 source) valACYclovir Drug Allergy [facility] (13 sources) buPROPion; Translations: [BUPROPION] Drug Allergy 06-22-19 23 Other (See Comments) [facility] (13 sources) Latex; Translations: [LATEX, NATURAL RUBBER] Propensity to adverse reactions to drug 09-04-19 12 Swelling, Itching, Rash, Unknown [facility] (13 sources) Menthol; Translations: [MENTHOL] Drug Allergy 02-27-19 23 [facility] (4 sources) Sulfamethoxazole; Translations: [SULFAMETHOXAZOLE] Drug Allergy 08-19-19 22 [facility] (13 sources) zolpidem; Translations: [ZOLPIDEM] Drug Allergy 05-25-19 23 Other (See Comments), Unknown [facility] (5 sources) Gloves, Latex With Aloe Vera; Translations: [GLOVES, LATEX WITH ALOE VERA] Propensity to adverse reactions to drug 08-19-19 22 [facility] (8 sources) Cefuroxime Drug Allergy 07-08-19 23 [facility] (9 sources) dimethicone; Translations: [DIMETHICONE] Drug Allergy 07-08-[address] [facility] (8 sources) Fish - dietary Allergy to substance 07-26-[address] [facility] (8 sources) Gatifloxacin Allergy to substance 12-22-[address] [facility] (8 sources) Penicillins Drug Intolerance 09-04-19 12 Itching, Rash [facility] (8 sources) Galcanezumab-Gnlm Propensity to adverse reactions 07-08-[address] [facility] (8 sources) Norethindrone-Eth Estradiol Drug Intolerance 09-04-19 12 [facility] (1 source) CT dye and contrast; Translations: [CT dye and contrast] Propensity to adverse reactions (disorder) [facility] (7 sources) Benzathine penicillin - chemical Allergy to substance 08-22-19 24 [facility] (7 sources) Sulfamethoxazole Allergy to substance 08-22-19 24 [facility] (2 sources) Ibuprofen; Translations: [IBUPROFEN] Drug Allergy 09-04-19 [facility] (2 sources) NORETHINDRONE AC-ETH ESTRADIOL; Translations: [NORETHINDRONE AC-ETH ESTRADIOL] Propensity to adverse reactions to drug (disorder) 09-04-19 [facility] Medications Current Medications Medication Drug Class(es) [...] every four hours as needed for headache ncbckhzsno-iplojicfszeqy-oweboqth (FIORICET) 50-325-40 MG per tablet Take 1 [...] 05/20/2021 05/22/2021 Active Ajovy Autoinjector (1 source) Sta rt: 3 inject 225 mg by subcutaneous injection every month Ajovy Autoinjector 225 mg, SubCutaneous, qMonth, Refills(s) 0 Start Date: 01/04/23 Status: Ordered [id number] 200 actuat albuterol 0.09 mg/actuat metered dose inhaler (20 sources) beta2-Adrenergic Agonist Sta rt: 2 albuterol (PROVENTIL HFA;MARJORIE TOLIN HFA) 90 mcg/actuation inhaler every 4 (four) hours. 01/11/2022 Active Start: 01-11-2022 albuterol (PRO VENTIL HFA;VENTOLIN HFA) 90 mcg/actuation inhaler every 4 (four) [...] hydrochloride 0.137 mg/actuat metered dose nasal spray (13 sources) Histamine-1 Receptor Antagonist Start: take 1 spray(s) nasal route at bedtime azelastine (ASTELIN) 137 mcg (0.1 %) nasal spray Indications: Chronic sinusitis SPRAY 1 SPRAY INTO EACH NOSTRIL IN THE MORNING AND BEFORE BEDTIME DIRECTED 30 mL 12 09/10/2023 Active Start: 04-09-2023 Azelastine HCl 137 MCG/SPRAY solution [...] tablet (20 sources) gamma-Aminobutyric Acid-ergic Agonist Start: 08-07-2023 take 1-2 tablets by mouth once daily baclofen (LIORESAL) 10 mg tablet TAKE 1 TO 2 TABLETS BY MOUTH NIGHTLY 60 tablet 5 08/07/2023 Active Start: 2021 take 10 mg by mouth [...] 2 PUFFS BY MOUTH TWICE A DAY 06/12/2022 Active End: 03-14-2023 take 2 puff(s) [...] daily. cholecalciferol, vitamin D3, (VITAMIN D3 ORAL) (3 sources) cholecalciferol, vitamin D3, (VITAMIN D3 ORAL) Take 1 capsule by mouth. Active cholecalciferol, vitamin D3, (VITAMIN D3 ORAL) Take 1 capsule by mouth. 0 Active ciprofloxacin 250 mg oral tablet (2 sources) Quinolone Antimicrobial Start: 2021 take 1 tablet by mouth once daily Cipro 250 mg Tab See Instructions, 1 tab po day prior to procedure. 1 tab po following procedure., # 2 tab(s), Refills(s) 0, Pharmacy: [facility]/pharmacy #[id number], 162, cm, 12/21/21 8:50:00 EST, Height/Length Dosing, 99, kg, 12/21/21 8:50:00 EST, Weight Dosing Start Date: 12/21/21 Status: Ordered CPAP/BIPAP/OTHER (5 sources) CPAP/BIPAP/OTHER Type .CPAPSettings into a note to see current settings/supplies/D ME information. Active CPAP/BIPAP/OTHER Type .CPAPSettings into a [...] extended release oral tablet (1 source) Uncompetitive W-eooqoh-I-aspartate Receptor Antagonist, Sigma-1 Agonist take 30-600 mg [...] capsule (60 mg total) by mouth nightly. 12/26/2022 Active Start: 01-28-2022 take 1 capsule by mo ut once daily DULoxetine (CYMBALTA) 30 mg capsule TAKE 1 CAPSULE BY MOUTH EVERY DAY DO NOT CRUSH OR CHEW 01/28/2022 Active Start: 2021 Cymbalta Oral, Refills(s) 0 Start Date: 12/21/21 Status: Ordered Comment on above: TAKE 1 CAPSULE BY MO UTH EVERY DAY DO NOT CRUSH OR CHEW [id number] 0.3 ml EPINEPHrine 1 mg/ml auto-injector (20 [...] THE MUSCLE ONCE NEEDED (SEVERE ALLERGIC REACTION) 06/05/2021 Active Start: 06-04-2021 EPINEPHrine (E PIPEN [...] nasal spray (20 sources) Corticosteroid Start: 12-17-19 22 Flonase Allergy Relief 50 mcg/inh nasal spray Daily, Refills(s) 0 Start Date: 12/16/21 Status: Ordered Start: 07-14-2021 End: 10-19-2021 take 1 spray(s) nasal route twice daily fluticasone (FLONASE) 50 mcg/actuation nasal spray Use 1 [place] in each nostril twice daily. 3 Each 07/14/2021 10/19/2021 Active take 2 spray(s) nasa l route once daily fluticasone (VERAMYST) 27.5 mcg/actuation nasal spray Administer 2 sprays into each nostril once daily. Active take 2 spray(s) nasa l route in the morning fluticasone (Flonase Sensimist) 27.5 MCG/SPRAY nasal spray Administer 2 sprays into each nostril in the morning. Active Fluticasone Furo ate (FLONASE SENSIMIST) 27.5 mcg/actuation nasal spray 1 spray in each nostril Active Comment on above: Use 1 [place] in each nostril twice daily. 1 spray [...] fremanezumab-v frm (AJOVY 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) 225 mg/1.5 mL INJECT 1.5 ML (225 MG TOTAL) UNDER THE SKIN EVERY 28 DAYS. 4.5 mL 3 07/24/2023 Active Start: 2021 inject 1 mg by [...] breath. 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 Active Magnesium 250 mg tab Take 250 mg by mouth. Active magnesium 250 mg tablet Take 1 tablet (250 mg total) by mouth. 0 Active Magnesium 250 mg tab Take 250 mg by mouth. 0 Active Comment on above: Take 250 mg by mouth . magnesium gluconate 500 mg oral tablet (7 sources) take 1 tablet by mouth in [...] Ordered ondansetron 4 mg disintegrating oral tablet (9 sources) Serotonin-3 Receptor Antagonist Start: 01-18-2022 take 1 tablet by mouth every six hours as needed ondansetron ODT (ZOFRAN ODT) 4 mg disintegrating tablet 1 (ONE) TABLET BY MOUTH EVERY SIX HOURS, NEEDED 01/18/2022 Active Start: 04-16-2021 End: 04-16-2021 ondansetron [...] pantoprazole 40 mg delayed release oral tablet (5 sources) Proton Pump Inhibitor Start: 02-13-19 take 1 tablet by mouth twice daily Pantoprazole [address] Tab 40 mg = 1 tab(s), Oral, BID, # 60 tab(s), Refills(s) 3, Pharmacy: [facility]/pharmacy #[id number], 162, cm, 01/04/23 9:06:00 EST, Height/Length Dosing, 100.5, kg, 01/04/23 9:06:00 EST, Weight Dosing Start Date: 02/13/23 Status: Ordered pantoprazole (TN OTONIX) 40 mg EC tablet Take by mouth daily. Active perflutren lipid microsphere s 1.3 mL in NaCl (PF) 0.9% 10 mL injection (DEFINITY) (20 sources) Start: 07-21-2021 End: 10-20-2022 perflutren lipid microsphere s 1.3 mL in NaCl (PF) 0.9% 10 mL injection (DEFINITY) prasterone 10 mg oral capsul e (7 sources) DHEA 10 MG capsu le Take [...] daily. pyridostigmine bromide 60 mg oral tablet (13 sources) Start: take 3 tablets by mouth [...] tablet (20 sources) Serotonin Reuptake Inhibitor Start: 02-24-2023 take 1 tablet by mouth once daily [...] mg total) by mouth in the morning. Active sertraline (Zolo ft) 50 MG tablet [...] stone, # 30 tab(s), Refills(s) 1, Pharmacy: [facility]/pharmacy #[id number], 162, cm, 09/05/22 8:28:00 EDT, Height/Length Dosing, 99, kg, 09/05/22 8:28:00 EDT, Weight Dosing Start Date: 09/05/22 Status: Ordered 28 actuat tiotropium 0.26696 mg/actuat inhalation spray (6 sources) Anticholinergic Start: 11-07-2023 End: 11-06-2024 tiotropium (Spiriva Respimat) 1.25 MCG/ACT inhaler Indications: Severe persistent asthma with (acute) exacerbation ([facility]) Inhale 2 puffs Daily 1 each 11/07/2023 11/06/2024 Active traZODone hydrochloride 100 mg oral tablet (9 sources) Serotonin Reuptake Inhibitor End: 06-10-2021 take 1 tablet by mouth once daily traZODone (DESYREL) 100 MG tablet Take 100 mg by mouth daily 0 Active Comment on above: Take 100 mg by mouth as needed. triamcinolone acetonide 1 mg/ml topical cream (7 sources) Corticosteroid Start: 07-10-2023 triamcinolone (Kenalog) 0.1 % cream Indications: Other specified dermatitis Apply to affected areas, up to twice a day when flared, do not use one the face, groin, or underarms, 30 day supply 80 g 11 07/10/2023 Active ubrogepant 100 mg oral tablet (20 sources) Start: 07-05-2023 take 1 tablet by mouth once as needed UBRELVY 100 mg tablet Take 100 mg by mouth once as needed (migraine) for up to 1 dose. 16 tablet 12 07/05/2023 Active Start: 01-04-2023 take 50 mg by mouth once Ubrel vy 50 mg, Oral, Once, Refills(s) 0 Start [...] HOURS vitamin b12 1 mg sublingual tablet (11 sources) Vitamin B12 Start: take 1 tablet [...] oral capsule (20 sources) Anti-epileptic Agent Start: 10-31-2023 take 2 capsules by mouth in the morning zonisamide (ZONEGRAN) 100 mg capsule TAKE 2 CAPSULES (200 MG TOTAL) BY MOUTH IN THE MORNING. 180 capsule 1 10/31/2023 Active Start: 10-03-2022 End: 02-06-2023 take 2 [...] mouth every 6 (six) hours as needed. Active take 2 tablets by mo uth every six hours as needed diphenhydrAMINE (BENADRYL) 25 mg tablet Take 50 mg by mouth every 6 hours as needed. Active End: 06-10-2021 take 1 capsule by [...] Comment on above: TAKE 1 CAPSULE BY [facility] TWICE A DAY FOR 10 DAYS EPINEPHrine (EPINEPHrine HCL) 1 mg/mL injection 0.3 mg (1 source) Start: 2 End: 2 EPINEPHrine (EPINEPHrine HCL) 1 mg/mL injection 0.3 mg 168 hr estradiol 0.08317 mg/hr transdermal system (4 sources) Estrogen Start: [...] hyperglycemia, without long-term current use of insulin ([facility]) 0.25 mg SC weekly x 4 weeks, [...] Classification Problem Date Documented Da te Episodic/Chronic Anxiety disorders (20 sources) Anxiety; Translations: [Anxiety [...] 5 02-23-2014 Chronic Diabetes mellitus with complications (12 sources) Type 2 diabetes mellitus with hyperglycemia; Translations: [Hyperglycemia due to type 2 diabetes mellitus] Onset: 1 Chronic Diabetes mellitus without complication (10 sources) Type 2 diabetes mellitus; Translations: [Diabetes mellitus] Onset: 1 12-16-2021 Chronic Disorders of lipid metabolism (8 sources) Hyperlipidemia; Translations: [Hyperlipidemia, unspecified] Onset: 6 01-12-2023 Chronic Esophageal disorders (20 sources) Gastroesophageal reflux disease; Translations: [Gastro-esophageal reflux disease without esophagitis] Onset: 6 Chronic Essential hypertension (1 source) Hypertensive disorder; Translations: [Essential (primary) hypertension] Chronic Headache; including migraine (19 sources) Chronic intractable migraine without aura; Translations: [Chronic migraine without aura, intractable, without status migrainosus] Onset: 1 Chronic Headache; including migraine (4 sources) Headache; including migraine; Translations: [HEADACHE UNSPECIFIED] Onset: 2 Inflammatory diseases of female pelvic organs (1 source) Hydrosalpinx; Translations: [Chronic salpingitis] Chronic Mood disorders (14 sources) Depressive disorder; Translations: [Depression, unspecified depression type] Onset: 1 Chronic Nausea and vomiting (1 source) Intractable nausea and vomiting; Translations: [Nausea with vomiting, unspecified] Episodic Nutritional deficiencies (14 sources) Vitamin D deficiency; Translations: [Vitamin D deficiency, unspecified] Onset: 3 12-16-2021 Chronic Other aftercare (1 source) Other terminologist (current) drug therapy; Translations: [OTH RF TEST ENGINEER CURRENT DRUG THERAPY] Onset: 3 Episodic Other [...] Episodic Other ear and sense organ disorders (8 sources) Hearing loss; Translations: [Unspecified hearing loss, unspecified ear] Onset: 6 01-12-2023 Chronic Other endocrine disorders (2 sources) Polycystic ovary syndrome; Translations: [Polycystic ovarian syndrome] 11-20-2023 Chronic Other endocrine disorders (2 sources) Disorder of endocrine system; Translations: [Endocrine disorder, unspecified] 11-20-2023 Episodic Other female genital disorders (13 sources) Pain in female genitalia on intercourse; Translations: [Unspecified dyspareunia] Onset: 3 12-16-2021 Chronic Other gastrointestinal disorders (8 sources) Irritable bowel syndrome; Translations: [Irritable bowel [...] 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 Other infections; including parasitic (19 sources) Late effects of other and unspecified infectious and parasitic diseases; 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] Onset: 2 Chronic Other infections; including parasitic (3 sources) Post-viral disorder; Translations: [Sequelae of other [...] 6 04-07-2015 Chronic Other nervous system disorders (12 sources) Disorder of autonomic nervous system; Translations: [Disorder of the autonomic nervous system, unspecified] Onset: 2 Chronic Other nervous system disorders (1 source) Circadian rhythm sleep disorder of shift work type; Translations: [Circadian rhythm sleep disorder, 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 Other nervous system disorders (8 sources) Arachnoid cyst; Translations: [Cerebral cysts] Onset: 6 12-16-2021 Chronic Other nervous system disorders (1 source) Demyelinating disease of central nervous system, unspecified; Translations: [Demyelinating disease of central nervous system (HCC)] Onset: 2 Chronic Other nervous system disorders (3 sources) Disorder of the autonomic nervous system, unspecified; Translations: [Disorder of the autonomic nervous system, unspecified] Onset: 2 Chronic Other nervous system disorders (5 sources) [...] Onset: 6 Chronic Other upper respiratory disease (7 sources) Allergic rhinitis due to pollen; Translations: [...] vocal cords] 11-07-2023 Episodic Residual codes; unclassified (13 sources) Obstructive sleep apnea syndrome; Translations: [Obstructive sleep apnea (adult) (pediatric)] Onset: 1 Chronic Residual codes; unclassified (1 source) Sleep paralysis; Translations: [Other sleep disorders] Chronic Residual codes; unclassified (1 source) Poor sleep pattern; Translations: [Other sleep disorders] Chronic Residual codes; unclassified (11 sources) Hypersomnia with sleep apnea; Translations: [Hypersomnia, unspecified] Onset: 2 Resolved: 4 03-02-2021 Chronic Residual codes; unclassified (1 source) [...] W/AND (SUSP) EXPOS COVID-19] Onset: 2 Unclassified (2 sources) Post covid-19 condition, unspecified; Translations: [Post covid-19 condition, unspecified] Onset: 2 Past or Other Problems Problem Classification Problem Date Documented Date Episodic/Chronic Abdominal hernia (13 sources) Right inguinal hernia ; Translations: [Unilateral [...] 01-16-2023 Episodic Genitourinary symptoms and ill-defined conditions (13 sources) Stress incontinence (female) (male); Translations: [Genuine stress incontinence] Onset: 2021 Resolved: 04-09-2023 Chronic Genitourinary symptoms and ill-defined conditions (20 sources) Blood in urine; Translations: [Gross hematuria] Onset: 11-16-2021 Resolved: 01-16-2023 Episodic Headache; including migraine (10 sources) Headache; Translations: [Worsening headaches] Onset: 12-22-2015 Resolved: 01-16-2023 Episodic Immunizations and screening for infectious disease (1 source) Encounter for screening for human papillomavirus (HPV); Translations: [ENC SCREENING HUMAN PAPILLOMAVIRUS] Onset: 08-04-2021 Episodic Lymphadenitis (4 sources) Lymphadenopathy; Translations: [Generalized enlarged lymph nodes] Onset: 11-16-2021 Episodic Malaise and fatigue (20 sources) Malaise and fatigue; Translations: [Other malaise] Onset: 03-02-2021 05-24-2021 Episodic Mood disorders (3 sources) Mood disorders Onset: 01-04-2023 01-04-2023 Nonmalignant breast conditions (2 sources) Unspecified lump in axillary tail of the left breast; Translations: [Unspecified lump in axillary tail of the right breast] Onset: 10-23-2021 Episodic Nonspecific chest pain (20 sources) Chest pain; Translations: [Chest pain, unspecified] Onset: 12-24-2020 Resolved: 04-09-2023 Episodic Other circulatory disease (20 sources) Labile blood pressure; Translations: [Other disorder of circulatory system] Onset: 05-24-2021 Resolved: 01-16-2023 05-24-2021 Episodic Other circulatory disease (20 sources) Orthostatic hypotension; Translations: [Orthostatic hypotension] Onset: 08-23-2021 Resolved: 04-09-2023 Episodic Other circulatory disease (1 source) Other disorder of circulatory system; Translations: [Blood pressure instability] Onset: 05-24-2021 Episodic Other connective tissue disease (20 sources) Subjective muscle weakness; Translations: [Muscle weakness (generalized)] Onset: 05-24-2021 05-24-2021 Episodic Other connective tissue disease (4 sources) Unspecified symptoms and signs involving the nervous system; Translations: [Other symptoms involving nervous and musculoskeletal systems] Onset: 03-02-2021 03-02-2021 Episodic Other connective tissue disease (11 sources) Muscle spasm of cervical muscle of neck; Translations: [Other muscle spasm] Onset: 03-02-2021 03-02-2021 Episodic Other diseases of bladder and urethra (13 sources) Urethral stricture; Translations: [Unspecified urethral stricture, male, unspecified site] Onset: 01-12-2023 02-27-2022 Episodic Other lower respiratory disease (1 source) Dyspnea, unspecified; Translations: [Dyspnea, unspecified] Onset: 01-08-2022 Episodic Other nervous system disorders (3 sources) Impaired cognition; Translations: [Other symptoms and signs involving cognitive functions and awareness] Onset: 03-02-2021 03-02-2021 Episodic Other nervous system disorders (11 sources) Word finding difficulty ; Translations: [Other speech disturbances] Onset: 03-02-2021 03-02-2021 Episodic Other nervous system disorders (1 source) Other speech disturbances; Translations: [Other speech disturbances] Onset: 03-02-2021 Episodic Other screening for suspected conditions (not mental disorders or infectious disease) (20 sources) Patient encounter status; Translations: [Encounter for screening for other suspected endocrine disorder] Onset: 06-14-2021 Episodic Other skin disorders (4 sources) Localized swelling, mass and lump, upper limb, bilateral; Translations: [LOC SWELL MASS LUMP UP LIMB LARS] Onset: 10-19-2021 Episodic Other upper respiratory infections (7 sources) Acute pansinusitis; Translations: [Acute pansinusitis, unspecified] Onset: 04-09-2023 Resolved: 10-10-2023 10-10-2023 Episodic Ovarian cyst (14 sources) Cyst of left ovary; Translations: [Unspecified ovarian cyst, left side] Onset: 01-12-2023 Episodic Residual codes; unclassified (20 sources) Diffuse [...] ORGN] Onset: 10-23-2021 Episodic Residual codes; unclassified (11 sources) Memory impairment; Translations: [Other amnesia] Onset: 03-02-2021 03-02-2021 Episodic Residual codes; unclassified (7 sources) Bilateral lower limb edema; Translations: [Localized edema] Onset: 04-09-2023 04-09-2023 Episodic Spondylosis; intervertebral disc disorders; other back problems (13 sources) Pain in thoracic spine; Translations: [Neck pain] Onset: 03-02-2021 03-02-2021 Episodic Sprains and strains (2 sources) Low back strain; Translations: [Strain of muscle, fascia and tendon of lower back, initial encounter] Onset: 01-30-2022 Episodic Syncope (16 sources) Near syncope; Translations: [Syncope and collapse] Onset: 05-24-2022 Resolved: 01-16-2023 Episodic Unclassified (1 source) LOW BACK PAIN, UNSPECIFIED; Translations: [LOW BACK PAIN, UNSPECIFIED] Onset: 02-15-2022 Unclassified (1 source) Post covid-19 condition, unspecified; Translations: [Post covid-19 condition, unspecified] Onset: 01-10-2023 Viral infection (20 sources) Disease caused by 2019-nCoV; Translations: [COVID-19] [...] ) Other: PROVIDER RELATED REMINDER:_ ( ) Product Marketing Engineer ( ) Call Pharmacy ( ) Call Lab ( ) Other: Special Instructions:_ Comments:_ Normal [facility] Telemedicineon 10-10-2023 Telemedicine [id number] Megan Tran 1985 F Date Provider Department Center 10/10/2023 MACRINA FISCHER [facility] CARD [facility] Family History Problem [...] Alive Son Alive Son Alive Level of Service:79734 [place] OFFICE/OUTPATIENT ESTABLISHED LOW MDM 20 MIN Reason for Visit and Comments: Orthostatic Intolerance [Other] Normal [facility] Office/Clinic Noteon 10-04-2023 Urology Office/Clinic Note Urology Office/Clinic Note Chief Complaint kidney stone, angiomyolipoma, gross hematuria HPI Staff 1 yr w/ GORDON. Dx: kidney stone, angiomyolipoma, gross hematuria, urethral stricture. *Has Flomax for stone passage GORDON done 08/21/23 at [facility]. Dysuria: denies Incomplete bladder emptying: denies [...] with voice recognition artificial intelligence software, specifically [employer], [employer] and or [employer]. Substitutions may have occurred due to the [...] esophagogastroduodenoscopy (01/31 (more content not included)... Normal [facility] Comment on above: Result Comment: Elec [...] for choosing us for your care. Normal [facility] CBC W Auto Differential pane l (Bld)on 10-01-2023 Basophils (Bld) [#/Vol] 0.04 10*3/uL Normal <0.11 [facility] Comment on above: Order Comment: Speci men Type: BLOOD SPECIMEN Ordering Facility: [facility] Address: [address] [place] [address] Performed By: #### 5 7021-8 #### [facility] CLIA [id number] [address] [place] [address] Basophils/100 WBC (Bld) 0.7 % Normal [facility] Comment on above: Order Comment: Speci men Type: BLOOD SPECIMEN Ordering Facility: [facility] Address: [address] [place] [address] Performed By: #### 5 7021-8 #### [facility] CLIA [id number] [address] [place] [address] Differential cell count method Nom (Bld) Auto Normal [facility] Comment on above: Order Comment: Speci men Type: BLOOD SPECIMEN Ordering Facility: [facility] Address: [address] [place] [address] Performed By: #### 5 7021-8 #### [facility] CLIA [id number] [address] [place] [address] Eosinophils (Bld) [#/Vol] 0.15 10*3/uL Normal <0.46 [facility] Comment on above: Order Comment: Speci men Type: BLOOD SPECIMEN Ordering Facility: [facility] Address: [address] [place] [address] Performed By: #### 5 7021-8 #### [facility] CLIA [id number] [address] [place] [address] Eosinophils/100 WBC (Bld) 2.6 % Normal [facility] Comment on above: Order Comment: Speci men Type: BLOOD SPECIMEN Ordering Facility: [facility] Address: [address] [place] [address] Performed By: #### 5 7021-8 #### [facility] CLIA [id number] [address] [place] [address] Erythrocyte distribution width (RBC) [Ratio] 11.6 % Normal 11.5-15.0 [facility] Comment on above: Order Comment: Speci men Type: BLOOD SPECIMEN Ordering Facility: [facility] Address: [address] [place] [address] Performed By: #### 5 7021-8 #### [facility] CLIA [id number] [address] [place] [address] Hematocrit (Bld) [Volume fraction] 41.7 % Normal 36.0-46.0 [facility] Comment on above: Order Comment: Speci men Type: BLOOD SPECIMEN Ordering Facility: [facility] Address: [address] [place] [address] Performed By: #### 5 7021-8 #### [facility] CLIA [id number] [address] [place] [address] Hemoglobin (Bld) [Mass/Vol] 14.7 g/dL Normal 11.5-15.5 [facility] Comment on above: Order Comment: Speci men Type: BLOOD SPECIMEN Ordering Facility: [facility] Address: [address] [place] [address] Performed By: #### 5 7021-8 #### [facility] CLIA [id number] [address] [place] [address] Immature granulocytes (Bld) [#/Vol] 0.03 10*3/uL Normal <0.10 [facility] Comment on above: Order Comment: Speci men Type: BLOOD SPECIMEN Ordering Facility: [facility] Address: [address] [place] [address] Performed By: #### 5 7021-8 #### [facility] CLIA [id number] [address] [place] [address]346 Immature granulocytes/100 WBC (Bld) 0.5 % Normal [facility] Comment on above: Order Comment: Speci men Type: BLOOD SPECIMEN Ordering Facility: [facility] Address: [address] [place] [address] Performed By: #### 5 7021-8 #### [facility] CLIA [id number] [address] [place] [address]9566 Lymphocytes (Bld) [#/Vol] 1.23 10*3/uL Normal 1.00-4.00 [facility] Comment on above: Order Comment: Speci men Type: BLOOD SPECIMEN Ordering Facility: [facility] Address: [address] [place] [address] Performed By: #### 5 7021-8 #### [facility] CLIA [id number] [address] [place] [address] Lymphocytes/100 WBC (Bld) 21.4 % Normal [facility] Comment on above: Order Comment: Speci men Type: BLOOD SPECIMEN Ordering Facility: [facility] Address: [address] [place] [address] Performed By: #### 5 7021-8 #### [facility] CLIA [id number] [address] [place] [address]04 MCH (RBC) [Entitic mass] 30.2 pg Normal 26.0-34.0 [facility] Comment on above: Order Comment: Speci men Type: BLOOD SPECIMEN Ordering Facility: [facility] Address: [address] [place] [address] Performed By: #### 5 7021-8 #### [facility] CLIA [id number] [address] [place] [address]455 MCHC (RBC) [Mass/Vol] 35.3 g/dL Normal 30.5-36.0 [facility] Comment on above: Order Comment: Speci men Type: BLOOD SPECIMEN Ordering Facility: [facility] Address: [address] [place] [address] Performed By: #### 5 7021-8 #### [facility] CLIA [id number] [address] [place] [address]128 MCV (RBC) [Entitic vol] 85.8 fL Normal 80.0-100.0 [facility] Comment on above: Order Comment: Speci men Type: BLOOD SPECIMEN Ordering Facility: [facility] Address: [address] [place] [address] Performed By: #### 5 7021-8 #### [facility] CLIA [id number] [address] [place] [address]31 Monocytes (Bld) [#/Vol] 0.24 10*3/uL Normal <0.87 [facility] Comment on above: Order Comment: Speci men Type: BLOOD SPECIMEN Ordering Facility: [facility] Address: [address] [place] [address] Performed By: #### 5 7021-8 #### [facility] CLIA [id number] [address] [place] [address] Monocytes/100 WBC (Bld) 4.2 % Normal [facility] Comment on above: Order Comment: Speci men Type: BLOOD SPECIMEN Ordering Facility: [facility] Address: [address] [place] [address] Performed By: #### 5 7021-8 #### [facility] CLIA [id number] [address] [place] [address] Neutrophils (Bld) [#/Vol] 4.06 10*3/uL Normal 1.45-7.50 [facility] Comment on above: Order Comment: Speci men Type: BLOOD SPECIMEN Ordering Facility: [facility] Address: [address] [place] [address] Performed By: #### 5 7021-8 #### [facility] CLIA [id number] [address] [place] [address]10 Neutrophils/100 WBC (Bld) 70.6 % Normal [facility] Comment on above: Order Comment: Speci men Type: BLOOD SPECIMEN Ordering Facility: [facility] Address: [address] [place] [address] Performed By: #### 5 7021-8 #### [facility] CLIA [id number] [address] [place] [address]3782 Nucleated RBC (Bld) [#/Vol] 10*3/uL Normal <0.01 [facility] Comment on above: Order Comment: Speci men Type: BLOOD SPECIMEN Ordering Facility: [facility] Address: [address] [place] [address] Performed By: #### 5 7021-8 #### [facility] CLIA [id number] [address] [place] [address] Nucleated RBC/100 WBC (Bld) [Ratio] 0.0 /100 WBC Normal [facility] Comment on above: Order Comment: Speci men Type: BLOOD SPECIMEN Ordering Facility: [facility] Address: [address] [place] [address] Performed By: #### 5 7021-8 #### [facility] CLIA [id number] [address] [place] [address]57 Platelet mean volume (Bld) [Entitic vol] 10.0 fL Normal 9.0-12.7 [facility] Comment on above: Order Comment: Speci men Type: BLOOD SPECIMEN Ordering Facility: [facility] Address: [address] [place] [address] Performed By: #### 5 7021-8 #### [facility] CLIA [id number] [address] [place] [address]107 Platelets (Bld) [#/Vol] 241 10*3/uL Normal 150-400 [facility] Comment on above: Order Comment: Speci men Type: BLOOD SPECIMEN Ordering Facility: [facility] Address: [address] [place] [address] Performed By: #### 5 7021-8 #### [facility] CLIA [id number] [address] [place] [address] 11902 RBC (Bld) [#/Vol] 4.86 10*6/uL Normal 3.90-5.20 [facility] Comment on above: Order Comment: Speci men Type: BLOOD SPECIMEN Ordering Facility: [facility] Address: [address] [place] [address] Performed By: #### 5 7021-8 #### [facility] CLIA [id number] [address] [place] [address]321 WBC (Bld) [#/Vol] 5.75 10*3/uL Normal 3.70-11.00 [facility] Comment on above: Order Comment: Dulce Maria jules Type: BLOOD SPECIMEN Ordering Facility: [facility] Address: [address] [place] [address] Performed By: #### 5 7021-8 #### [facility] CLIA [id number] [address] [place] [address] CNOVSPon 10-01-2023 CNOVSP Visit (SP) Office (H [facility]AS[facility]) LEANA TRAN ([id number]) 1985 F Date Time Provider Department 10/01/23 9:45 AM FUENTES AMARAL During your visit today, we recorded the following information about you: Temperature Pulse Respiration Blood pressure 97 degrees 71/minute 16/minute 123/84 Weight Height 100 kg 1.626 m Fuentes Amaral MD 10/03/2023 7:47 AM Signed NAME: Leana Tran [facility] NO.: [id number] DATE OF SERVICE: October 01, 2023 (Munir) [...] one m (more content not included)... Normal [facility] Comprehensive metabolic 2000 panelon 10-01-2023 Albumin [Mass/Vol] 4.4 g/dL Normal 3.9-4.9 [facility] Comment on above: Order Comment: Specvince jules Type: BLOOD SPECIMEN Ordering Facility: [facility] Address: [address] [place] [address] Performed By: #### 2 4323-8 #### [facility] CLIA [id number] [address] [place] [address] [place] ALP [Catalytic activity/Vol] 73 U/L Normal 34-123 [facility] Comment on above: Order Comment: Speci dhara Type: BLOOD SPECIMEN Ordering Facility: [facility] Address: [address] [place] [address] Performed By: #### 2 4323-8 #### [facility] CLIA [id number] [address] [place] [address] [place] [address] [place] ALT [Catalytic activity/Vol] 25 U/L Normal 7-38 [facility] Comment on above: Order Comment: Speci men Type: BLOOD SPECIMEN Ordering Facility: [facility] Address: [address] [place], [place] [address] Performed By: #### 2 4323-8 #### [facility] CLIA [id number] [address] [place], [place] [id number] [place] Anion gap [Moles/Vol] 9 mmol/L Normal 8-15 [facility] Comment on above: Order Comment: Speci men Type: BLOOD SPECIMEN Ordering Facility: [facility] Address: [address] [place] [address] Performed By: #### 2 4323-8 #### [facility] CLIA [id number] [address] [place] [address] [place] AST [Catalytic activity/Vol] 21 U/L Normal 13-35 [facility] Comment on above: Order Comment: Speci men Type: BLOOD SPECIMEN Ordering Facility: [facility] Address: [address] [place], [place] [id number] Performed By: #### 2 4323-8 #### [facility] CLIA [id number] [address] [place] [address] [place] Bilirubin [Mass/Vol] 0.5 mg/dL Normal 0.2-1.3 [facility] Comment on above: Order Comment: Speci men Type: BLOOD SPECIMEN Ordering Facility: [facility] Address: [address] [id number] Performed By: #### 2 4323-8 #### [facility] CLIA [id number] [address] [place] [address] [place] Calcium [Mass/Vol] 9.3 mg/dL Normal 8.5-10.2 [facility] Comment on above: Order Comment: Speci men Type: BLOOD SPECIMEN Ordering Facility: [facility] Address: [address] [place] [address] Performed By: #### 2 4323-8 #### [facility] CLIA [id number] [address] [place] [address] [place] Chloride [Moles/Vol] 104 mmol/L Normal 98-107 [facility] Comment on above: Order Comment: Speci men Type: BLOOD SPECIMEN Ordering Facility: [facility] Address: [address] [place] [address] Performed By: #### 2 4323-8 #### [facility] CLIA [id number] [address] [place] [address] [place] CO2 [Moles/Vol] 25 mmol/L Normal 22-30 [facility] Comment on above: Order Comment: Speci men Type: BLOOD SPECIMEN Ordering Facility: [facility] Address: [address] [place] [address] Performed By: #### 2 4323-8 #### [facility] CLIA [id number] [address] [place] [address] [place] Creatinine [Mass/Vol] 1.01 mg/dL High 0.58-0.96 [facility] Comment on above: Order Comment: Speci men Type: BLOOD SPECIMEN Ordering Facility: [facility] Address: [address] [place] [address] Performed By: #### 2 4323-8 #### [facility] CLIA [id number] [address] [place] [address] [place] Creatinine and Glomerular filtration rate.predicted panel (S/P/Bld) 73 mL/min/1.73m??? Normal >=60 [facility] Comment on above: Order Comment: Speci men Type: BLOOD SPECIMEN Ordering Facility: [facility] Address: [address] [place] [address] Result Comment: Maricarmen mated Glomerular Filtration Rate [...] GFR. Performed By: #### 2 4323-8 #### [facility] CLIA [id number] [facility] [place] [address] [place] Glucose [Mass/Vol] 136 mg/dL High 74-99 [facility] Comment on above: Order Comment: Dulce Maria jules Type: BLOOD SPECIMEN Ordering Facility: [facility] Address: [address] [place] [address] Result Comment: The [place] Diabetes Association (ADA) provides guidance for cutoff [...] Standards of Medical Care in Diabetes 2016, [place] [employer]. Diabetes Care. 2016.39(Suppl 1). Performed By: #### 2 4323-8 #### [facility] CLIA [id number] [address] [place] [address] [place] Potassium [Moles/Vol] 3.9 mmol/L Normal 3.7-5.1 [facility] Comment on above: Order Comment: Dulce Maria jules Type: BLOOD SPECIMEN Ordering Facility: [facility] Address: [address] [place] [address] Performed By: #### 2 4323-8 #### [facility] CLIA [id number] [address] [place] [address] [place] Protein [Mass/Vol] 7.1 g/dL Normal 6.3-8.0 [facility] Comment on above: Order Comment: Speci men Type: BLOOD SPECIMEN Ordering Facility: [facility] Address: [address] [place] [address] Performed By: #### 2 4323-8 #### [facility] CLIA [id number] [address] [place] [address] [place] Sodium [Moles/Vol] 138 mmol/L Normal 136-144 [facility] Comment on above: Order Comment: Speci men Type: BLOOD SPECIMEN Ordering Facility: [facility] Address: [address] [place] [address] Performed By: #### 2 4323-8 #### [facility] CLIA [id number] [address] [place] [address] [place] Urea nitrogen [Mass/Vol] 12 mg/dL Normal 7-21 [facility] Comment on above: Order Comment: Speci men Type: BLOOD SPECIMEN Ordering Facility: [facility] Address: [address] [place] [address] Performed By: #### 2 4323-8 #### [facility] CLIA [id number] [address] [place] [address] [place] Ambulatory Visit Summaryon 0 02-13-2023 Ambulatory Visit Summary LEANA RTAN :1985 Visit Date:02/13/2023 Ambulatory Visit Instructions Your [...] LORAINE BURNHAM PA-C Where: [facility] General Surgery Office/Clini c Noteon 02-13-2023 General [...] BID, # 60 tab(s), Refills(s) 3, Pharmacy: [facility]/pharmacy #[id number], 162, cm, 01/04/23 9:06:00 EST, Height/Length Dosing, 100.5, kg, 01/04/23 9:06:00 EST, Weight Dosing E&M of Est. Patient Low 20-29 Min 05271 3. BMI 38.0-38.9,adult (Z68.38: Body mass index [BMI] 38.0-38.9, adult) recommend diet and exercise. Ordered: E&M of Est. Patient Low 20-29 Min 40296 Follow-up No qualifying data available Problem List/Past [...] Sister. Heart disease: (more content not included)... [facility] Comment on above: Result Comment: Elec tronically Signed By: MARLON PEREZ, Tesfaye Richard\Date and Time Signed: 02/13/23 09:58 EST Operative Reporton Operative Report [id number]#1.00TIFF [facility] Lab Reportson 01-31-2023 Lab Reports [id number]#1.00TIFF [facility] Consultation Noteon 01-27-20 Consultation Note [id number]#1.00TIFF [facility] Office Visiton 01-10-2023 Follow-up visit [id number] Megan Tran 1985 F Date Provider Department Center 01/10/2023 MACRINA FISCHER [facility] Family History Problem [...] Alive Son Alive Son Alive Level of Service:25013 [place] OFFICE/OUTPATIENT ESTABLISHED LOW MDM 20-29 MIN Normal [facility] Insurance Correspondenceon 1 03-11-2022 Insurance Correspondence [id number]#1.00TIFF [facility] Ambulatory Visit Summaryon 1 03-06-2022 Ambulatory [...] LORAINE BURNHAM PA-C Where: [facility] Ambulatory Visit Summary LEANA TRAN DOB:1985 Visit Date:01/04/2023 Ambulatory Visit Instructions Your Diagnosis [...] HEREDIA, LORAINE Razo Where: [facility] Consent for Procedure/Surger yon 01-04-2023 Consent for Procedure/Surgery [id number]#1.00TIFF [facility] Hemoglobin [id number] By: Julianne Kong on 01-01-2023 [facility] Office Visiton 01-01-2023 Follow-up visit [id number] Megan Tran 1985 F Date Provider Department Center 01/01/2023 [facility] Family History Problem Relation Age of [...] Alive Son Alive Son Alive Level of Service:37002 [place] OFFICE/OUTPATIENT ESTABLISHED SF MDM 10-19 MIN Normal [facility] 36on 12-25-2022 36 Pt calls stating yareli t she was seen 12/18 at ER for Chest pain an EKG was done and she would like to discuss her results. Normal [facility] Telephoneon 12-25-2022 Telephone [id number] Megan Tran 1985 F Date Provider Department Center 12/25/2022 MACRINA FISCHER [facility] Family History Problem [...] Son Alive Son Alive Son Alive Normal [facility] XR CHEST PORTABLEon 12-20-19 23 XR CHEST [...] Juan Kidd MD 12/19/22 Final result Normal [facility] Basic Metabolic Profon 12-18 Anion gap [Moles/Vol] 10 mmol/L Normal 9-17 [facility] Comment on above: Performed By: #### B ANTHONY DRAPER TROPI #### [facility] [address] [place] [address] [place] [address] Quality Control Specialist: Belén Dale MD BUN/CRE Ratio 12 Normal 9-20 [facility] Comment on above: Performed By: #### B ANTHONY DRAPER, TROPI #### [address] [place] [address] Quality Control Specialist: Belén Dale MD Calcium [Mass/Vol] 9.5 mg/dL Normal 8.6-10.4 [facility] Comment on above: Performed By: #### B ANTHONY DRAPER, TROPI #### [facility] [address] [place] [address] [place] [address] Quality Control Specialist: Belén Dale MD Chloride [Moles/Vol] 102 mmol/L Normal 98-107 [facility] Comment on above: Performed By: #### B ANTHONY DRAPER, TROPI #### [facility] [address] [place] [address] [place] [address] Quality Control Specialist: Belén Dale MD CO2 [Moles/Vol] 26 mmol/L Normal 20-[address] [facility] Comment on above: Performed By: #### B ANTHONY DRAPER, TROPI #### [facility] [address] [place] [address] Quality Control Specialist: Belén Dale MD Creatinine [Mass/Vol] 1.0 mg/dL High 0.5-0.9 [facility] Comment on above: Performed By: #### B ANTHONY DRAPER, TROPI #### [facility] [address] [place] [address] Quality Control Specialist: Belén Dale MD GFR/1.73 sq M.predicted among non-blacks MDRD (S/P/Bld) [Vol rate/Area] mL/min/{1.73_m2} Normal >60 [facility] Comment on above: Result Comment: These results [...] By: #### B ANTHONY DRAPER, TROPI #### [facility] [address] [place] [address] Quality Control Specialist: Belén Dale MD Glucose [Mass/Vol] 97 mg/dL Normal 70-99 [facility] Comment on above: Performed By: #### B ANTHONY DRAPER, TROPI #### [facility] [address] [place] [address] Quality Control Specialist: Belén Dale MD Potassium [Moles/Vol] 4.0 mmol/L Normal 3.7-5.3 [facility] Comment on above: Performed By: #### B ANTHONY DRAPER, TROPI #### [facility] [address] [place] [address] Quality Control Specialist: Belén Dale MD Sodium [Moles/Vol] 138 mmol/L Normal 135-144 [facility] Comment on above: Performed By: #### B ANTHONY DRAPER, TROPI #### [facility] [address] [place] [address] [place], [place] [address] Quality Control Specialist: Belén Dale MD Urea nitrogen [Mass/Vol] 12 mg/dL Normal 6-20 [facility] Comment on above: Performed By: #### B ANTHONY DRAPER, TROPI #### [address] [place] [address] Quality Control Specialist: Belén Dale MD CBC with Diffon 12-18-2022 Abs. Basophil 0.04 k/uL Normal 0.00-0.20 [facility] Comment on above: Performed By: #### B ANTHONY DRAPER, TROPI #### [address] [place], [facility]83 Quality Control Specialist: Belén Dale MD Abs.Imm.Granulocyte 0.04 k/uL Normal 0.00-0.30 [facility] Comment on above: Performed By: #### B ANTHONY DRAPER, TROPI #### [address] [place] [address] Quality Control Specialist: Belén Dale MD Abs.Neutrophil (Seg) 5.01 k/uL Normal 1.50-8.10 [facility] Comment on above: Performed By: #### B ANTHONY DRAPER, TROPI #### [address] [place] [address] Quality Control Specialist: Belén Dale MD Basophils/100 WBC (Bld) 1 % Normal 0-2 [facility] Comment on above: Performed By: #### B ANTHONY DRAPER, TROPI #### [facility] [address] [place] [address] Quality Control Specialist: Belén Dale MD Eosinophils (Bld) [#/Vol] 0.19 10*3/uL Normal 0.00-0.44 [facility] Comment on above: Performed By: #### B ANTHONY DRAPER, TROPI #### [address] [place], [place] [address] Quality Control Specialist: Belén Dale MD Eosinophils/100 WBC (Bld) 3 % Normal 1-4 [facility] Comment on above: Performed By: #### B ANTHONY DRAPER, TROPI #### [address] [place], [place] [address] Quality Control Specialist: Belén Dale MD Erythrocyte distribution width (RBC) [Ratio] 11.6 % Low 11.8-14.4 [facility] Comment on above: Performed By: #### B ANTHONY DRAPER, TROPI #### [address] [place], [place] [address] Quality Control Specialist: Belén Dale MD Hematocrit (Bld) [Volume fraction] 44.3 % Normal 36.3-47.1 [facility] Comment on above: Performed By: #### B ANTHONY DRAPER, TROPI #### [address] [place], [place] [address] Quality Control Specialist: Belén Dale MD Hemoglobin (Bld) [Mass/Vol] 14.8 g/dL Normal 11.9-15.1 [facility] Comment on above: Performed By: #### B ANTHONY DRAPER, TROPI #### [address] [place], [place] [address] Quality Control Specialist: Belén Dale MD Immature granulocytes/100 WBC (Bld) 1 % High 0 [facility] Comment on above: Performed By: #### B ANTHONY DRAPER, TROPI #### [address] [place], [place] [address] Quality Control Specialist: Belén Dale MD Lymphocytes (Bld) [#/Vol] 1.71 10*3/uL Normal 1.10-3.70 [facility] Comment on above: Performed By: #### B ANTHONY DRAPER, TROPI #### [facility] [address] [place], [place] [address] Quality Control Specialist: Belén Dale MD Lymphocytes/100 WBC (Bld) 23 % Low 24-43 [facility] Comment on above: Performed By: #### B ANTHONY DRAPER, TROPI #### [facility] [address] [place], [facility]83 Quality Control Specialist: Belén Dale MD MCH (RBC) [Entitic mass] 29.0 pg Normal 25.2-33.5 [facility] Comment on above: Performed By: #### B ANTHONY DRAPER, TROPI #### [address] [place], [place] [address] Quality Control Specialist: Belén Dale MD MCHC (RBC) [Mass/Vol] 33.4 g/dL Normal 28.4-34.8 [facility] Comment on above: Performed By: #### B ANTHONY DRAPER, TROPI #### [address] [place], [facility]83 Quality Control Specialist: Belén Dale MD MCV (RBC) [Entitic vol] 86.9 fL Normal 82.6-102.9 [facility] Comment on above: Performed By: #### B ANTHONY DRAPER, TROPI #### [facility] [address] [place] [address] Dr[place], [facility]83 Quality Control Specialist: Belén Dale MD Monocytes (Bld) [#/Vol] 0.44 10*3/uL Normal 0.10-1.20 [facility] Comment on above: Performed By: #### B ANTHONY DRAPER, TROPI #### [facility] [address] [place] [address] Quality Control Specialist: Belén Dale MD Monocytes/100 WBC (Bld) 6 % Normal 3-12 [facility] Comment on above: Performed By: #### B MP CDP, TROPI #### [facility] [address] [place], [place] [address] Quality Control Specialist: Belén Dale MD Neutrophil (Seg) 66 % High 36-65 [facility] Comment on above: Performed By: #### B MP, CDP, TROPI #### [facility] [address] [place], [place] [address] Quality Control Specialist: Belén Dale MD NRBC Automated 0.0 per 100 WBC Normal 0.0 [facility] Comment on above: Performed By: #### B BARON CDP, TROPI #### [facility] [address] [place], [place] [address] Quality Control Specialist: Belén Dale MD Platelet mean volume (Bld) [Entitic vol] 9.9 fL Normal 8.1-13.5 [facility] Comment on above: Performed By: #### B BARON, CDP, TROPI #### [address] [place], [place] [address] Quality Control Specialist: Belén Dale MD Platelets (Bld) [#/Vol] 280 10*3/uL Normal 138-453 [facility] Comment on above: Performed By: #### B BARON CDP, TROPI #### [address] [place], [facility]83 Quality Control Specialist: Belén Dale MD RBC (Bld) [#/Vol] 5.10 10*6/uL Normal 3.95-5.11 [facility] Comment on above: Performed By: #### B MP, CDP, TROPI #### [facility] [address] [place] [address] Quality Control Specialist: Belén Dale MD WBC (Bld) [#/Vol] 7.4 10*3/uL Normal 3.5-11.3 [facility] Comment on above: Performed By: #### B BARON CDP, TROPI #### [facility] [address] [place] [address] Quality Control Specialist: Belén Dale MD D-Dimer Teston 12-18-2022 D-Dimer Test 0.36 ug/mL FEU Normal 0.00-0.59 [facility] Comment on above: Result Comment: [...] By: #### M G, BMPX, CDP #### [facility] [address] [place], [place] [address]483 Quality Control Specialist: Belén Dale MD Physician Referralon 023 Physician Referral [id number] Normal [facility] [id number] 12-18-2022 SARS-CoV-2 (COVID-19) RNA CHRISTI+probe Ql (Unsp spec) Not detected Normal NOTDET [facility] Comment on above: Result Comment: Rapid NAAT: [...] management decisions. Fact sheet for Healthcare Providers: https://www.fda.gov/media/764455/download Fact sheet for Patients: https://www.fda.gov/media/791878/download Methodology: Isothermal Nucleic Acid Amplification Performed By: #### M Francisca BMPX, ANTHONY #### [facility] [address] [place] [address] Quality Control Specialist: Belén Dale MD Troponinon 12-18-2022 Troponin, High Sens 6 ng/L Normal 0-14 [facility] Comment on above: Result Comment: High Sensitivity Troponin values cannot be compared with other Troponin methodologies. Performed By: #### B MPANTHONY, TROPI #### [facility] [address] [place] [address] Quality Control Specialist: Belén Dale MD CELIAC ANTIBODIES PROFILEon 06-16-2022 Deamidated Gliadin Abs, IgA 26 units Critically high 0-19 [facility] Comment on above: Result Comment: Nega tive 0 - 19 Weak Positive 20 - 30 Moderate to Strong Positive >30 Performed By: #### C BC #### [facility] [address] [place] [address] Dr. Nilton Mccall Deamidated Gliadin Abs, IgG 5 units Normal 0-19 [facility] Comment on above: Result Comment: Nega tive 0 - 19 Weak Positive 20 - 30 Moderate to Strong Positive >30 Performed By: #### C BC #### [facility] [address] [place] [address] Dr. Nilton Mccall Endomysial Antibody IgA Negative Normal Negative [facility] Comment on above: Performed By: #### C BC #### [facility] [address] [place] [address] Dr. Nilton Mccall Immunoglobulin A, Qn, Serum 205 mg/dL Normal 87-352 [facility] Comment on above: Performed By: #### C BC #### [facility] [address] [place] [address] Dr. Nilton Mccall t-Transglutaminase (tTG) IgA <2 Normal 0-3 [facility] Comment on above: Result Comment: Nega tive 0 - 3 Weak Positive 4 - 10 Positive >10 . Tissue Transglutaminase (tTG) has been identified as the endomysial antigen. Studies have demonstr- ated that endomysial IgA antibodies have over 99% specificity for gluten sensitive enteropathy. Performed By: #### C BC #### [facility] [address] [place] [address] Dr. Nilton Mccall t-Transglutaminase (tTG) IgG 3 U/mL Normal 0-5 [facility] Comment on above: Result Comment: Nega tive 0 - 5 Weak Positive 6 - 9 Positive >9 Performed By: #### C BC #### [facility] [address] [place] [address] Dr. Nilton Mccall CBC AUTO DIFFon 06-15-2022 BASO # 0.0 103/ul Normal 0.0-0.1 [facility] Comment on above: Performed By: #### C BC #### [facility] [address] [place] [address] Dr. Nilton Mccall Basophils/100 WBC (Bld) 0.5 % Normal 0.2-2.0 [facility] Comment on above: Performed By: #### C BC #### [facility] [address] [place] [address] Dr. Nilton Mccall EO # 0.2 103/ul Normal 0.0-0.7 [facility] Comment on above: Performed By: #### C BC #### [facility] [address] [place] [address] Dr. Nilton Mccall Eosinophils/100 WBC (Bld) 2.8 % Normal 0.9-7.0 [facility] Comment on above: Performed By: #### C BC #### [facility] [address] [place] [address] Dr. Nilton Mccall Erythrocyte distribution width (RBC) [Ratio] 11.8 % Normal 11.0-15.0 [facility] Comment on above: Performed By: #### C BC #### [facility] [address] [place] [address] Dr. Nilton Mccall Hematocrit (Bld) [Volume fraction] 41.8 % Normal 36.0-48.0 [facility] Comment on above: Performed By: #### C BC #### [facility] [address] [place] [address] Dr. Nilton Mccall Hemoglobin (Bld) [Mass/Vol] 14.2 g/dL Normal 12.0-16.0 [facility] Comment on above: Performed By: #### C BC #### [facility] [address] [place] [address] Dr. Nilton Mccall IG # 0.03 10e3/ul Normal 0.00-0.03 [facility] Comment on above: Performed By: #### C BC #### [facility] [address] [place] [address] Dr. Nilton Mccall IG % 0.4 % Normal 0.0-0.5 [facility] Comment on above: Performed By: #### C BC #### [facility] [address] [place] [address] Dr. Nilton Mccall LYMPH # 2.3 103/ul Normal 1.2-3.8 [facility] Comment on above: Performed By: #### C BC #### [facility] [address] [place] [address] Dr. Nilton Mccall Lymphocytes/100 WBC (Bld) 28.8 % Normal 20.5-60.0 [facility] Comment on above: Performed By: #### C BC #### [facility] [address] [place] [address] Dr. Nilton Mccall MANUAL DIFF REQ NO Normal [facility] Comment on above: Performed By: #### C BC #### [facility] [address] [place] [address] Dr. Nilton Mccall MCH (RBC) [Entitic mass] 29.4 pg Normal 26.7-34.0 [facility] Comment on above: Performed By: #### C BC #### [facility] [address] [place] [address] Dr. Nilton Mccall MCHC (RBC) [Mass/Vol] 34.0 g/dL Normal 29.9-35.2 [facility] Comment on above: Performed By: #### C BC #### [facility] [address] [place] [address] Dr. Nilton Mccall MCV (RBC) [Entitic vol] 86.5 fL Normal 81.0-99.0 [facility] Comment on above: Performed By: #### C BC #### [facility] [address] [place] [address] Dr. Nilton Mccall MONO # 0.4 103/ul Normal 0.3-0.8 [facility] Comment on above: Performed By: #### C BC #### [facility] [address] [place] [address] Dr. Nilton Mccall Monocytes/100 WBC (Bld) 4.5 % Normal 1.7-12.0 [facility] Comment on above: Performed By: #### C BC #### [facility] [address] [place] [address] Dr. Nilton Mccall NEUT # 5.0 103/ul Normal 1.4-6.5 [facility] Comment on above: Performed By: #### C BC #### [facility] [address] [place] [address] Dr. Nilton Mccall Neutrophils/100 WBC (Bld) 63.0 % Normal 43.0-75.0 [facility] Comment on above: Performed By: #### C BC #### [facility] [address] [place] [address] Dr. Nilton Mccall Platelet mean volume (Bld) [Entitic vol] 9.5 fL Normal 9.5-13.5 [facility] Comment on above: Performed By: #### C BC #### [facility] [address] [place] [address] Dr. Nilton Mccall PLT 279 103/ul Normal 150-450 [facility] Comment on above: Performed By: #### C BC #### [facility] [address] [place] [address] Dr. Nilton Mccall RBC 4.83 106/ul Normal 4.20-5.40 [facility] Comment on above: Performed By: #### C BC #### [facility] [address] [place] [address] Dr. Nilton Mccall WBC 7.9 103/ul Normal 4.0-11.0 [facility] Comment on above: Performed By: #### C BC #### [facility] [address] [place] [address] Dr. Nilton Mccall GLYCOHEMOGLOBIN A1Con 2022 ADA RECOMMENDATION SEE BELOW Normal [facility] Comment on above: Result Comment: ADA RECOMMENDED LIMIT 4.0 - 6.0 ADA THERAPEUTIC TARGET < 7.0 ACTION SUGGESTED > 7.0 Performed By: #### C MP #### [facility] [address] [place] [address] Dr. Nilton Mccall Glucose [Mass/Vol] 117 mg/dL Normal [facility] Comment on above: Performed By: #### C MP #### [facility] [address] [place] [address] Dr. Nilton Mccall HbA1c (Bld) [Mass fraction] 5.7 % Normal 4.5-6.2 [facility] Comment on above: Performed By: #### C MP #### [facility] [address] [place] [address] Dr. Nilton Mccall VIT B12 AND FOLATEon 023 Cobalamin (Vitamin B12) [Mass/Vol] 539.0 pg/mL Normal 193.0-986. 0 [facility] Comment on above: Performed By: #### C BC #### [facility] [address] [place] [address] Dr. Nilton Mccall FOLATE 16.40 ng/mL Normal 8.60-58.90 [facility] Comment on above: Performed By: #### C BC #### [facility] [address] [place] [address] Dr. Nilton Mccall VITAMIN D 25 OHon 06-15-2022 VIT D 25-OH 41.2 ng/mL Normal [facility] Comment on above: Performed By: #### C BC #### [facility] [address] [place] [address] Dr. Nilton Mccall VIT D RANGES SEE BELOW Normal [facility] Comment on above: Result Comment: <20 ng/mL Vit D deficient 20 - <30 ng/mL Vit D insufficient 30 - 100 ng/mL Vit D sufficient >100 ng/mL Potential Toxicity Performed By: #### C BC #### [facility] [address] [place] [address] Dr. Nilton Mccall FREE T3on 06-05-2022 FREE T3 2.39 pg/mlL Normal 2.18-3.98 [facility] Comment on above: Performed By: #### T SH, FT3 #### [facility] [address] [place] [address] Dr. Nilton Mccall FREE T4on 06-05-2022 Free T4 [Mass/Vol] 0.89 ng/dL Normal 0.76-1.46 [facility] Comment on above: Performed By: #### C MP #### [facility] [address] [place] [address] Dr. Nilton Mccall TSHon 06-05-2022 TSH 1.431 uIU/mL Normal 0.358-3.74 0 [facility] Comment on above: Performed By: #### T SH, FT3 #### [facility] [address] [place] [address] Dr. Nilton Mccall PLATELET TRANSMISSION ELECTR ON MICROSCOPIC STUDYon 03-29-2022 PLATELET TEM Performed Normal [facility] Comment on above: Order Comment: Speci men Type: BLOOD SPECIMEN Ordering Facility: [facility] Address: [address] [place] [id number] Performed By: #### P LTEMS #### [facility] CLIA [id number] [address] [id number] PTEM INTERPRETATION SEE NOTE Normal [facility] Comment on above: Order Comment: Speci men Type: BLOOD SPECIMEN Ordering Facility: [facility] Address: [place] [address] Result Comment: IMPR ESSION: Platelet transmission electron [...] characteristics determined by [facility] in a manner consistent with CLIA requirements. This test has not been cleared or approved by the U.S. Food and Drug Administration. Test Performed by: [facility] [address] [address] Quality Control Specialist: Shree Norwood M.D. Ph.D.; CLIA# [id number] Performed By: #### P LTEMS #### [facility] CLIA [id number] [address] [id number] Specimen Rejectionon 023 Reason for rejection Unable to perform t esting: Specimen age beyond stability limit. Normal [facility] Comment on above: Performed By: #### CELESTINA Cam, CDP #### [facility] [address] [place] [address] Quality Control Specialist: Belén Dale MD Source of sample .BLOOD Normal [facility] Comment on above: Performed By: #### CELESTINA Cam, CDP #### [facility] [address] [place] [address] Quality Control Specialist: Belén Dale MD Test ordered PLTEM Normal [facility] Comment on above: Performed By: #### CELESTINA Cam, CDP #### [facility] [address] [place] [address] Quality Control Specialist: Belén Dale MD T4, Freeon 02-17-2022 Thyroxine, Free 1.34 ng/dL 0.93 - 1.70 ng/dL [facility] TSH w/reflex to FT4on 2022 Thyroid Stim. Horm. 0.08 uIU/mL Low 0.30-5.00 [facility] Comment on above: Performed By: #### T SHX #### [facility] [address] [place] [address] [place] [address] Quality Control Specialist: Belén Dale MD #### FT4 #### [address] [id number] Quality Control Specialist: Emanuel Reaves MD TSH with Reflexon 02-17-2022 Interpretation and review of laboratory results Abnormal [facility] TSH Qn 0.08 m[IU]/L Low [facility] Thyroxine, Freeon 02-17-2022 Thyroxine, Free 1.34 ng/dL Normal 0.93-1.[address] [facility] Comment on above: Performed By: #### T SHX #### [facility] [address] [place] [address] Quality Control Specialist: Belén Dale MD #### FT4 #### [facility] [address] [place] [address] Quality Control Specialist: Emanuel Reaves MD CBC with Diffon 01-30-2022 Abs. Basophil 0.04 k/uL Normal 0.00-0.20 [facility] Comment on above: Performed By: #### C P, CDP #### [facility] [address] [place] [address] Quality Control Specialist: Belén Dale MD Abs.Imm.Granulocyte 0.04 k/uL Normal 0.00-0.30 [facility] Comment on above: Performed By: #### C P, CDP #### [facility] [address] [place], [place] [address] Quality Control Specialist: Belén Dale MD Abs.Neutrophil (Seg) 6.83 k/uL Normal 1.50-8.10 [facility] Comment on above: Performed By: #### C P, CDP #### [address] [place], [place] [address] Quality Control Specialist: Belén Dale MD Basophils/100 WBC (Bld) 0 % Normal 0-2 [facility] Comment on above: Performed By: #### C P, CDP #### [address] [place], [place] [id number] Quality Control Specialist: Belén Dale MD Eosinophils (Bld) [#/Vol] 0.19 10*3/uL Normal 0.00-0.44 [facility] Comment on above: Performed By: #### C P, CDP #### [facility] [address] [place], [facility]83 Quality Control Specialist: Belén Dale MD Eosinophils/100 WBC (Bld) 2 % Normal 1-4 [facility] Comment on above: Performed By: #### C P, CDP #### [address] [place], [place] [id number] Quality Control Specialist: Belén Dale MD Erythrocyte distribution width (RBC) [Ratio] 11.6 % Low 11.8-14.4 [facility] Comment on above: Performed By: #### C P, CDP #### [facility] [address] [place], [place] [id number] Quality Control Specialist: Belén Dale MD Hematocrit (Bld) [Volume fraction] 46.1 % Normal 36.3-47.1 [facility] Comment on above: Performed By: #### C P, CDP #### [facility] [address] [place], [facility]83 Quality Control Specialist: Belén Dale MD Hemoglobin (Bld) [Mass/Vol] 15.9 g/dL High 11.9-15.1 [facility] Comment on above: Performed By: #### C P, CDP #### [address] [place], [place] [address]83 Quality Control Specialist: Belén Dale MD Immature granulocytes/100 WBC (Bld) 0 % Normal 0 [facility] Comment on above: Performed By: #### C P, CDP #### [facility] [address] [place] [address] Dr. [place], [place] [id number] Quality Control Specialist: Belén Dale MD Lymphocytes (Bld) [#/Vol] 1.67 10*3/uL Normal 1.10-3.70 [facility] Comment on above: Performed By: #### C P, CDP #### [facility] [address] [place] [address] Dr. [place], [place] [address] Quality Control Specialist: Belén Dale MD Lymphocytes/100 WBC (Bld) 18 % Low 24-43 [facility] Comment on above: Performed By: #### C P, CDP #### [facility] [address] [place], [facility]83 Quality Control Specialist: Belén Dale MD MCH (RBC) [Entitic mass] 29.8 pg Normal 25.2-33.5 [facility] Comment on above: Performed By: #### C P, CDP #### [facility] [address] [place] [address] Dr. [place], [place] [id number] Quality Control Specialist: Belén Dale MD MCHC (RBC) [Mass/Vol] 34.5 g/dL Normal 28.4-34.8 [facility] Comment on above: Performed By: #### C P, CDP #### [address] [place], [place] 5092083 Quality Control Specialist: Belén Dale MD MCV (RBC) [Entitic vol] 86.3 fL Normal 82.6-102.9 [facility] Comment on above: Performed By: #### C P, CDP #### [address] [place], [place] 8193983 Quality Control Specialist: Belén Dale MD Monocytes (Bld) [#/Vol] 0.37 10*3/uL Normal 0.10-1.20 [facility] Comment on above: Performed By: #### C P, CDP #### [address] [place], [place] 8990683 Quality Control Specialist: Belén Dale MD Monocytes/100 WBC (Bld) 4 % Normal 3-12 [facility] Comment on above: Performed By: #### C P, CDP #### [address] [place], [place] [id number] Quality Control Specialist: Belén Dale MD Neutrophil (Seg) 76 % High 36-65 [facility] Comment on above: Performed By: #### C P, CDP #### [address] [place], [place] 6887383 Quality Control Specialist: Belén Dale MD NRBC Automated 0.0 per 100 WBC Normal 0.0 [facility] Comment on above: Performed By: #### C P, CDP #### [address] [place], [place] [id number] Quality Control Specialist: Belén Dale MD Platelet mean volume (Bld) [Entitic vol] 9.4 fL Normal 8.1-13.5 [facility] Comment on above: Performed By: #### C P, CDP #### [facility] [address] [place], [place] 7885483 Quality Control Specialist: Belén Dale MD Platelets (Bld) [#/Vol] 248 10*3/uL Normal 138-453 [facility] Comment on above: Performed By: #### C P, CDP #### [facility] [address] [place], [place] 8113683 Quality Control Specialist: Belén Dale MD RBC (Bld) [#/Vol] 5.34 10*6/uL High 3.95-5.11 [facility] Comment on above: Performed By: #### C P, CDP #### [facility] [address] [place], [place] [id number] Quality Control Specialist: Belén Dale MD WBC (Bld) [#/Vol] 9.1 10*3/uL Normal 3.5-11.3 [facility] Comment on above: Performed By: #### C P, CDP #### [address] [place] [address] Quality Control Specialist: Belén Dale MD CT ABDOMEN PELVIS WO [...] Tesfaye Tillman MD 01/30/22 Final result Normal [facility] Comp Metabolic Profon 2021 Albumin [Mass/Vol] 4.7 g/dL Normal 3.5-5.2 [facility] Comment on above: Performed By: #### M Francisca BMPX, CDP #### [facility] [address] [place], [place] [id number] Quality Control Specialist: Belén Dale MD Albumin/Glob Ratio 1.5 Normal 1.0-2.5 [facility] Comment on above: Performed By: #### M G, BMPX, CDP #### [facility] [address] [place], [place] 7157983 Quality Control Specialist: Belén Dale MD Alkaline Phos 76 U/L Normal 35-104 [facility] Comment on above: Performed By: #### M G, BMPX, CDP #### [facility] [address] [place], [place] 4587183 Quality Control Specialist: Belén Dale MD ALT [Catalytic activity/Vol] 40 U/L High 5-33 [facility] Comment on above: Performed By: #### M Francisca, BMPX, CDP #### [facility] [address] [place] [address] Dr. [place], [place] [phone] Quality Control Specialist: Belén Dale MD Anion gap [Moles/Vol] 10 mmol/L Normal 9-17 [facility] Comment on above: Performed By: #### M G, BMPX, CDP #### [address] [place], [place] 7096483 Quality Control Specialist: Belén Dale MD AST [Catalytic activity/Vol] 17 U/L Normal <32 [facility] Comment on above: Performed By: #### M G, BMPX, CDP #### [facility] [address] [place] [address] Dr. [place], [place] 9105383 Quality Control Specialist: Belén Dale MD Bilirubin [Mass/Vol] 0.3 mg/dL Normal 0.3-1.2 [facility] Comment on above: Performed By: #### M G, BMPX, CDP #### [facility] [address] [place], [place] 9981583 Quality Control Specialist: Belén Dale MD BUN/CRE Ratio 10 Normal 9-20 [facility] Comment on above: Performed By: #### M Francisca, BMPX, CDP #### [facility] [address] [place] [address] Quality Control Specialist: Belén Dale MD Calcium [Mass/Vol] 10.4 mg/dL Normal 8.6-10.4 [facility] Comment on above: Performed By: #### M Francisca, BMPX, CDP #### [facility] [address] [place], [place] [phone] Quality Control Specialist: Belén Dale MD Chloride [Moles/Vol] 105 mmol/L Normal 98-107 [facility] Comment on above: Performed By: #### M Francisca, BMPX, CDP #### [facility] [address] [place], [place] 6468883 Quality Control Specialist: Belén Dale MD CO2 [Moles/Vol] 25 mmol/L Normal 20-[address] [facility] Comment on above: Performed By: #### Ian Espinosa BMPX, CDP #### [facility] [address] [place] [address] Quality Control Specialist: Belén Dale MD Creatinine [Mass/Vol] 0.89 mg/dL Normal 0.50-0.90 [facility] Comment on above: Performed By: #### Ian Espinosa BMPX, CDP #### [facility] [address] [place] [address] Quality Control Specialist: Belén Dale MD GFR/1.73 sq M.predicted among non-blacks MDRD (S/P/Bld) [Vol rate/Area] mL/min/{1.73_m2} Normal >60 [facility] Comment on above: Result Comment: Effective Nov [...] Performed By: #### CELESTINA Cam, CDP #### [facility] [address] [place] [address] [place], [place] [id number] Quality Control Specialist: Belén Dale MD Glucose [Mass/Vol] 125 mg/dL High 70-99 [facility] Comment on above: Performed By: #### CELESTINA Cam, CDP #### [facility] [address] [place] [address] Quality Control Specialist: Belén Dale MD Potassium [Moles/Vol] 4.0 mmol/L Normal 3.7-5.3 [facility] Comment on above: Performed By: #### CELESTINA Cam, CDP #### [address] [place], [place] [phone] Quality Control Specialist: Belén Dale MD Protein [Mass/Vol] 7.9 g/dL Normal 6.4-8.3 [facility] Comment on above: Performed By: #### CELESTINA Cam, CDP #### [address] [place], [place] [address]521983 Quality Control Specialist: Belén Dale MD Sodium [Moles/Vol] 140 mmol/L Normal 135-144 [facility] Comment on above: Performed By: #### CLEESTINA Cam, CDP #### [address] [place] [address] Quality Control Specialist: Belén Dale MD Urea nitrogen [Mass/Vol] 9 mg/dL Normal 6-20 [facility] Comment on above: Performed By: #### CELESTINA Cam, CDP #### [address] [place], [place] 2048983 Quality Control Specialist: Belén Dale MD UA w/Reflex Cultureon 2021 Bilirubin, SemiQt,Ur Negative Normal NEG [facility] Comment on above: Performed By: #### M G, BMPX, CDP #### [facility] [address] [place] [address] Dr. [place], [place] [phone] Quality Control Specialist: Belén Dale MD Blood, Urine Negative Normal NEG [facility] Comment on above: Performed By: #### M G, BMPX, CDP #### [facility] [address] [place] [address] Dr. [place], [place] [phone] Quality Control Specialist: Belén Dale MD Clarity (U) Clear Normal CLEAR [facility] Comment on above: Performed By: #### M Francisca, BMPX, CDP #### [address] [place], [place] [phone] Quality Control Specialist: Belén Dale MD Color (U) Yellow Normal YEL [facility] Comment on above: Performed By: #### M Francisca, BMPX, CDP #### [facility] [address] [place] [address] [place], [place] 8872683 Quality Control Specialist: Belén Dale MD Glucose Ql (U) Negative Normal NEG [facility] Comment on above: Performed By: #### M Francisca, BMPX, CDP #### [address] [place] [address] Quality Control Specialist: Belén Dale MD Ketones Ql (U) Negative Normal NEG [facility] Comment on above: Performed By: #### M G, BMPX, CDP #### [facility] [address] [place] [address] [place] [address] Quality Control Specialist: Belén Dale MD Leukocyte esterase Test strip Ql (U) Negative Normal NEG [facility] Comment on above: Performed By: #### M G, BMPX, CDP #### [address] [place], [place] 7477683 Quality Control Specialist: Belén Dale MD Nitrite,Ur Negative Normal NEG [facility] Comment on above: Performed By: #### M G, BMPX, CDP #### [facility] [address] [place], [place] 0116683 Quality Control Specialist: Belén Dale MD PH,Ur 6.0 Normal 5.0-9.0 [facility] Comment on above: Performed By: #### M G, BMPX, CDP #### [facility] [address] [place], [place] 3469683 Quality Control Specialist: Belén Dale MD Protein Ql (U) Negative Normal NEG [facility] Comment on above: Performed By: #### M G, BMPX, CDP #### [address] [place], [place] 2551283 Quality Control Specialist: Belén Dale MD Spec. [place],Ur >1.030 High 1.010-1.02 0 [facility] Comment on above: Performed By: #### M G, BMPX, CDP #### [address] [place], [place] 0891883 Quality Control Specialist: Belén Dale MD Urobilinogen,Ur Normal Normal NORM [facility] Comment on above: Performed By: #### M G, BMPX, CDP #### [address] [place] [address] Quality Control Specialist: Belén Dale MD Urinalysis,Microon 2 Epithelial cells LM Ql (Urine sed) 2 TO 5 Normal 0-25 [facility] Comment on above: Performed By: #### M G, BMPX, CDP #### [facility] [address] [place] [address] [place], [place] 1393883 Quality Control Specialist: Belén Dale MD Mucus Strands 2+ Abnormal NONE [facility] Comment on above: Performed By: #### M G, BMPX, CDP #### [address] [place] [address] Quality Control Specialist: Belén Dale MD Urine RBC's 0 TO 2 Normal 0-2 [facility] Comment on above: Performed By: #### Ian Espinosa BMPX, CDP #### [facility] [address] [place], [place] 1107683 Quality Control Specialist: Belén Dale MD Urine WBC's 0 TO 2 Normal 0-5 [facility] Comment on above: Performed By: #### Ian Espinosa BMPX, CDP #### [facility] [address] [place], [place] 1505983 Quality Control Specialist: Belén Dale MD Hemoglobin A1Con 01-10-2022 Glucose [Mass/Vol] 117 mg/dL Normal [facility] Comment on above: Result Comment: The ADA and AACC recommend providing the estimated average glucose result to permit better patient understanding of their HBA1c result. Performed By: #### CELESTINA Cam, CDP #### [facility] [address] [place], [place] 9660183 Quality Control Specialist: Belén Dale MD HbA1c (Bld) [Mass fraction] 5.7 % Normal 4.0-6.0 [facility] Comment on above: Performed By: #### CELESTINA Cam, CDP #### [facility] [address] [place] [address] [place], [place] 0196283 Quality Control Specialist: Belén Dale MD CBC with Diffon 01-09-2022 Abs. Basophil <0.03 Normal 0.00-0.20 [facility] Comment on above: Performed By: #### YANIRA CamX, CDP #### [facility] [address] [place] [address] Quality Control Specialist: Belén Dale MD Abs. Eosinophil <0.03 Normal 0.00-0.[address] [facility] Comment on above: Performed By: #### Ian Espinosa BMPX, CDP #### [facility] [address] [place], [place] 6353183 Quality Control Specialist: Belén Dale MD Abs.Imm.Granulocyte 0.09 k/uL Normal 0.00-0.30 [facility] Comment on above: Performed By: #### YANIRA CamX, CDP #### [address] [place], [place] [phone] Quality Control Specialist: Belén Dale MD Abs.Neutrophil (Seg) 7.77 k/uL Normal 1.50-8.10 [facility] Comment on above: Performed By: #### Ian Espinosa BMPX, CDP #### [address] [place], [facility]83 Quality Control Specialist: Belén Dale MD Basophils/100 WBC (Bld) 0 % Normal 0-2 [facility] Comment on above: Performed By: #### CELESTINA Cam, CDP #### [address] [place], [facility]83 Quality Control Specialist: Belén Dale MD Eosinophils/100 WBC (Bld) 0 % Low 1-4 [facility] Comment on above: Performed By: #### CELETSINA Cam, CDP #### [address] [place], [facility]83 Quality Control Specialist: Belén Dale MD Erythrocyte distribution width (RBC) [Ratio] 12.0 % Normal 11.8-14.4 [facility] Comment on above: Performed By: #### CELESTINA Cam, CDP #### [address] [place], [facility]83 Quality Control Specialist: Belén Dale MD Hematocrit (Bld) [Volume fraction] 37.9 % Normal 36.3-47.1 [facility] Comment on above: Performed By: #### Ian Espinosa BMPX, CDP #### [address] [place], [facility]83 Quality Control Specialist: Belén Dale MD Hemoglobin (Bld) [Mass/Vol] 12.9 g/dL Normal 11.9-15.1 [facility] Comment on above: Performed By: #### Ian Espinosa BMPX, CDP #### [facility] [address] [place] [address] Quality Control Specialist: Belén Dale MD Immature granulocytes/100 WBC (Bld) 1 % High 0 [facility] Comment on above: Performed By: #### Ian Espinosa BMPX, CDP #### [address] [place] [address] Quality Control Specialist: Belén Dale MD Lymphocytes (Bld) [#/Vol] 1.35 10*3/uL Normal 1.10-3.70 [facility] Comment on above: Performed By: #### Ian Espinosa BMPX, CDP #### [address] [place], [place] [address]453883 Quality Control Specialist: Belén Dale MD Lymphocytes/100 WBC (Bld) 14 % Low 24-43 [facility] Comment on above: Performed By: #### CELESTINA Cam, CDP #### [address] [place] [address] Quality Control Specialist: Belén Dale MD MCH (RBC) [Entitic mass] 29.7 pg Normal 25.2-33.5 [facility] Comment on above: Performed By: #### Ian Espinosa BMPX, CDP #### [address] [place] [address] Quality Control Specialist: Belén Dale MD MCHC (RBC) [Mass/Vol] 34.0 g/dL Normal 28.4-34.8 [facility] Comment on above: Performed By: #### Ian Espinosa BMPX, CDP #### [address] [place] [address] Quality Control Specialist: Belén Dale MD MCV (RBC) [Entitic vol] 87.1 fL Normal 82.6-102.9 [facility] Comment on above: Performed By: #### Ian Espinosa, BMPX, CDP #### [facility] [address] [place] [address] Quality Control Specialist: Belén Dale MD Monocytes (Bld) [#/Vol] 0.40 10*3/uL Normal 0.10-1.20 [facility] Comment on above: Performed By: #### Ian Espinosa, BMPX, CDP #### [facility] [address] [place], [place] [phone] Quality Control Specialist: Belén Dale MD Monocytes/100 WBC (Bld) 4 % Normal 3-12 [facility] Comment on above: Performed By: #### Ian Espinosa BMPX, CDP #### [address] [place] [address] Quality Control Specialist: Belén Dale MD Neutrophil (Seg) 81 % High 36-65 [facility] Comment on above: Performed By: #### Ian Espinosa BMPX, CDP #### [address] [place], [facility]83 Quality Control Specialist: Belén Dale MD NRBC Automated 0.0 per 100 WBC Normal 0.0 [facility] Comment on above: Performed By: #### Ian Espinosa BMPX, CDP #### [facility] [address] [place], [facility]83 Quality Control Specialist: Belén Dale MD Platelet mean volume (Bld) [Entitic vol] 9.6 fL Normal 8.1-13.5 [facility] Comment on above: Performed By: #### Ian Espinosa BMPX, CDP #### [facility] [address] [place] [address] Quality Control Specialist: Belén Dale MD Platelets (Bld) [#/Vol] 238 10*3/uL Normal 138-453 [facility] Comment on above: Performed By: #### Ian Espinosa, BMPX, CDP #### [facility] [address] [place], [place] [id number] Quality Control Specialist: Belén Dale MD RBC (Bld) [#/Vol] 4.35 10*6/uL Normal 3.95-5.11 [facility] Comment on above: Performed By: #### Ian Espinosa BMPX, CDP #### [facility] [address] [place], [place] [id number] Quality Control Specialist: Belén Dale MD WBC (Bld) [#/Vol] 9.6 10*3/uL Normal 3.5-11.3 [facility] Comment on above: Performed By: #### Ian Espinosa BMPX, CDP #### [address] [place], [place] [address]83 Quality Control Specialist: Belén Dale MD Comp Metabolic Pr/rfx MGon 1 - Albumin [Mass/Vol] 4.2 g/dL Normal 3.5-5.2 [facility] Comment on above: Performed By: #### Ian Espinosa BMPX, CDP #### [address] [place], [place] [id number] Quality Control Specialist: Belén Dale MD Albumin/Glob Ratio 1.7 Normal 1.0-2.5 [facility] Comment on above: Performed By: #### Ian Espinosa BMPX, CDP #### [facility] [address] [place], [place] 2620683 Quality Control Specialist: Belén Dale MD Alkaline Phos 70 U/L Normal 35-104 [facility] Comment on above: Performed By: #### Ian Espinosa BMPX, CDP #### [facility] [address] [place] [address] Quality Control Specialist: Belén Dale MD ALT [Catalytic activity/Vol] 24 U/L Normal 5-33 [facility] Comment on above: Performed By: #### M G, BMPX, CDP #### [facility] [address] [place], [place] [id number] Quality Control Specialist: Belén Dale MD Anion gap [Moles/Vol] 13 mmol/L Normal 9-17 [facility] Comment on above: Performed By: #### M G, BMPX, CDP #### [facility] [address] [place], [place] 3829183 Quality Control Specialist: Belén Dale MD AST [Catalytic activity/Vol] 15 U/L Normal <32 [facility] Comment on above: Performed By: #### M G, BMPX, CDP #### [facility] [address] [place], [place] 9739483 Quality Control Specialist: Belén Dale MD Bilirubin [Mass/Vol] 0.3 mg/dL Normal 0.3-1.2 [facility] Comment on above: Performed By: #### M G, BMPX, CDP #### [facility] [address] [place] [address] Dr[address] [place], [place] 3727283 Quality Control Specialist: Belén Dale MD BUN/CRE Ratio 16 Normal 9-20 [facility] Comment on above: Performed By: #### M G, BMPX, CDP #### [address] [place], [place] 0559483 Quality Control Specialist: Belén Dale MD Calcium [Mass/Vol] 9.0 mg/dL Normal 8.6-10.4 [facility] Comment on above: Performed By: #### M G, BMPX, CDP #### [facility] [address] [place] [address] Quality Control Specialist: Belén Dale MD Chloride [Moles/Vol] 105 mmol/L Normal 98-107 [facility] Comment on above: Performed By: #### M G, BMPX, CDP #### [facility] [address] [place] [address] [place] [address] Quality Control Specialist: Belén Dale MD CO2 [Moles/Vol] 21 mmol/L Normal 20-[address] [facility] Comment on above: Performed By: #### CELESTINA Cam, CDP #### [facility] [address] [place] [address] Quality Control Specialist: Belén Dale MD Creatinine [Mass/Vol] 0.83 mg/dL Normal 0.50-0.90 [facility] Comment on above: Performed By: #### CELESTINA Cam, CDP #### [facility] [address] [place] [address] Quality Control Specialist: Belén Dale MD GFR/1.73 sq M.predicted among non-blacks MDRD (S/P/Bld) [Vol rate/Area] mL/min/{1.73_m2} Normal >60 [facility] Comment on above: Result Comment: Effective Nov [...] Performed By: #### CELESTINA Cam, CDP #### [facility] [address] [place] [address] Quality Control Specialist: Belén Dale MD Glucose [Mass/Vol] 183 mg/dL High 70-99 [facility] Comment on above: Performed By: #### CELESTINA Cam, CDP #### [facility] [address] [place] [address] Quality Control Specialist: Belén Dale MD Potassium [Moles/Vol] 3.7 mmol/L Normal 3.7-5.3 [facility] Comment on above: Performed By: #### CELESTINA Cam, CDP #### [facility] [address] [place] [address] Quality Control Specialist: Belén Dale MD Protein [Mass/Vol] 6.7 g/dL Normal 6.4-8.3 [facility] Comment on above: Performed By: #### M G, BMPX, CDP #### [facility] [address] [place], [place] 6917983 Quality Control Specialist: Belén Dale MD Sodium [Moles/Vol] 139 mmol/L Normal 135-144 [facility] Comment on above: Performed By: #### M G, BMPX, CDP #### [address] [place] [address] Quality Control Specialist: Belén Dale MD Urea nitrogen [Mass/Vol] 13 mg/dL Normal 6-20 [facility] Comment on above: Performed By: #### M Francisca, BMPX, CDP #### [address] [place], [place] 5863383 Quality Control Specialist: Belén Dale MD Resp Viral Panelon 2 Adenovirus Detected Abnormal [facility] Comment on above: Performed By: #### M G, BMPX, CDP #### [address] [place], [place] [id number] Quality Control Specialist: Belén Dale MD Bordet.parapertussis Not detected Normal [facility] Comment on above: Performed By: #### M G, BMPX, CDP #### [facility] [address] [place] [address] [address]. [place], [place] 3838483 Quality Control Specialist: MD Loly Chanddetella pertussis Not detected Normal [facility] Comment on above: Performed By: #### M G, BMPX, CDP #### [address] [place], [place] 3011083 Quality Control Specialist: Belén Dale MD Chlamyd.pneumoniae Not detected [facility] Comment on above: Performed By: #### M G, BMPX, CDP #### [facility] [address] [place] [address] Quality Control Specialist: Belén Dale MD Coronavirus 229E Not detected [facility] Comment on above: Performed By: #### M G, BMPX, CDP #### [facility] [address] [place] [address] Quality Control Specialist: Belén Dale MD Coronavirus HKU1 Not detected [facility] Comment on above: Performed By: #### M G, BMPX, CDP #### [facility] [address] [place] [address] Quality Control Specialist: Belén Dale MD Coronavirus NL63 Not detected [facility] Comment on above: Performed By: #### M G, BMPX, CDP #### [facility] [address] [place] [address] [place] [address] Quality Control Specialist: Belén Dale MD Coronavirus OC43 Not detected [facility] Comment on above: Performed By: #### M G, BMPX, CDP #### [facility] [address] [place] [address] Quality Control Specialist: Belén Dale MD Human Metapneumo Not detected [facility] Comment on above: Performed By: #### M G, BMPX, CDP #### [facility] [address] [place] [address] Quality Control Specialist: Belén Dale MD Influenza A Not detected [facility] Comment on above: Performed By: #### M G, BMPX, CDP #### [facility] [address] [place] [address] Quality Control Specialist: Belén Dale MD Influenza B Not detected Normal [facility] Comment on above: Performed By: #### M G, BMPX, CDP #### [facility] [address] [place] [address] Dr. [place], [place] 1668783 Quality Control Specialist: Bleén Dale MD Mycoplas.pneumoniae Not detected Normal [facility] Comment on above: Result Comment: Perf ormed by multiplexed nucleic acid assay. Performed By: #### M G, BMPX, CDP #### [facility] [address] [place] [address] [place] [address] Quality Control Specialist: Belén Dale MD Parainfluenza 1 Not detected Normal [facility] Comment on above: Performed By: #### M G, BMPX, CDP #### [address] [place], [place] 0487683 Quality Control Specialist: Belén Dale MD Parainfluenza 2 Not detected Normal [facility] Comment on above: Performed By: #### M G, BMPX, CDP #### [facility] [address] [place] [address] [place] [address] Quality Control Specialist: Belén Dale MD Parainfluenza 3 Not detected Normal [facility] Comment on above: Performed By: #### M G, BMPX, CDP #### [facility] [address] [place] [address] [place] [address] Quality Control Specialist: Belén Dale MD Parainfluenza 4 Not detected Normal [facility] Comment on above: Performed By: #### M G, BMPX, CDP #### [facility] [address] [place] [address] Dr[place], [place] 3376283 Quality Control Specialist: Belén Dale MD Resp Syncytial Virus Detected Abnormal [facility] Comment on above: Performed By: #### M G, BMPX, CDP #### [facility] [address] [place], [place] 0061583 Quality Control Specialist: Belén Dale MD Rhino/Enterovirus Not detected Normal [facility] Comment on above: Performed By: #### M Francisca, BMPX, CDP #### [facility] [address] [place], [place] 0019083 Quality Control Specialist: Belén Dale MD SARS-CoV-2 (COVID-19) RNA CHRISTI+probe Ql (Unsp spec) Not detected Normal [facility] Comment on above: Performed By: #### Ian Espinosa, BMPX, CDP #### [facility] [address] [place], [place] 283[address]83 Quality Control Specialist: Belén Dale MD Basic Metabolic Profon 01-08 Anion gap [Moles/Vol] 16 mmol/L Normal -17 [facility] Comment on above: Performed By: #### Ian Espinosa BMPX, CDP #### [facility] [address] [place] [address] [place], [place] 8690583 Quality Control Specialist: Belén Dale MD BUN/CRE Ratio 12 Normal -20 [facility] Comment on above: Performed By: #### Ian Espinosa, BMPX, CDP #### [facility] [address] [place] [address] Dr[place], [place] 0856483 Quality Control Specialist: Belén Dale MD Calcium [Mass/Vol] 9.5 mg/dL Normal 8.6-10.4 [facility] Comment on above: Performed By: #### M Francisca, BMPX, CDP #### [facility] [address] [place], [place] 2764483 Quality Control Specialist: Belén Dale MD Chloride [Moles/Vol] 104 mmol/L Normal 98-107 [facility] Comment on above: Performed By: #### M G, BMPX, CDP #### [facility] [address] [place], [place] 6893183 Quality Control Specialist: Belén Dale MD CO2 [Moles/Vol] 20 mmol/L Normal 20-[address] [facility] Comment on above: Performed By: #### CELESTINA Cam, CDP #### [facility] [address] [place] [address] Quality Control Specialist: Belén Dale MD Creatinine [Mass/Vol] 0.92 mg/dL High 0.50-0.90 [facility] Comment on above: Performed By: #### Ian Espinosa BMPX, CDP #### [facility] [address] [place] [address] Quality Control Specialist: Belén Dale MD GFR/1.73 sq M.predicted among non-blacks MDRD (S/P/Bld) [Vol rate/Area] mL/min/{1.73_m2} Normal >60 [facility] Comment on above: Result Comment: Effective Nov [...] Performed By: #### CELESTINA Cam, CDP #### [facility] [address] [place] [address] Quality Control Specialist: Belén Dale MD Glucose [Mass/Vol] 187 mg/dL High 70-99 [facility] Comment on above: Performed By: #### CELESTINA Cam, CDP #### [facility] [address] [place] [address] Quality Control Specialist: Belén Dale MD Potassium [Moles/Vol] 3.9 mmol/L Normal 3.7-5.3 [facility] Comment on above: Performed By: #### CELESTINA Cam, CDP #### [facility] [address] [place] [address] Dr. [place], [facility] Quality Control Specialist: Belén Dale MD Sodium [Moles/Vol] 140 mmol/L Normal 135-144 [facility] Comment on above: Performed By: #### Ian Espinosa BMPX, CDP #### [facility] [address] [place], [facility] Quality Control Specialist: Belén Dale MD Urea nitrogen [Mass/Vol] 11 mg/dL Normal 6-20 [facility] Comment on above: Performed By: #### YANIRA CamX, CDP #### [facility] [address] [place] [address] [place] [address] Quality Control Specialist: Belén Dale MD Brain Natri. Peptideon Natriuretic peptide B (Bld) [Mass/Vol] 485 pg/mL High <300 [facility] Comment on above: Result Comment: An age-independent cutoff point of 300 pg/ml has a 98% negative predictive value excluding acute heart failure. Performed By: #### CELESTINA Cam, CDP #### [address] [place], [place] [address] Quality Control Specialist: Belén Dale MD CBC with Diffon 01-08-2022 Abs. Basophil <0.03 Normal 0.00-0.20 [facility] Comment on above: Performed By: #### CELESTINA Cam, CDP #### [facility] [address] [place] [address] Dr. [place], [facility] Quality Control Specialist: Belén Dale MD Abs. Eosinophil <0.03 Normal 0.00-0.[address] [facility] Comment on above: Performed By: #### CELESTINA Cam, CDP #### [facility] [address] [place] [address] Dr. [place], [facility] Quality Control Specialist: Belén Dale MD Abs.Imm.Granulocyte 0.06 k/uL Normal 0.00-0.30 [facility] Comment on above: Performed By: #### CELESTINA aCm, CDP #### [facility] [address] [place], [place] 032[address]83 Quality Control Specialist: Belén Dale MD Abs.Neutrophil (Seg) 9.46 k/uL High 1.50-8.10 [facility] Comment on above: Performed By: #### M G, BMPX, CDP #### [facility] [address] [place] [address] Dr. [place], [facility] Quality Control Specialist: Belén Dale MD Basophils/100 WBC (Bld) 0 % Normal 0-2 [facility] Comment on above: Performed By: #### M Francisca, BMPX, CDP #### [address] [place], [facility] Quality Control Specialist: Belén Dale MD Eosinophils/100 WBC (Bld) 0 % Low 1-4 [facility] Comment on above: Performed By: #### Ian Espinosa, BMPX, CDP #### [address] [place], [facility]83 Quality Control Specialist: Belén Dale MD Erythrocyte distribution width (RBC) [Ratio] 11.9 % Normal 11.8-14.4 [facility] Comment on above: Performed By: #### M Francisca BMPX, CDP #### [address] [place], [facility] Quality Control Specialist: Belén Dale MD Hematocrit (Bld) [Volume fraction] 43.8 % Normal 36.3-47.1 [facility] Comment on above: Performed By: #### M Francisca, BMPX, CDP #### [address] [place] [address] Quality Control Specialist: Belén Dale MD Hemoglobin (Bld) [Mass/Vol] 14.6 g/dL Normal 11.9-15.1 [facility] Comment on above: Performed By: #### M G, BMPX, CDP #### [address] [place] [address] Quality Control Specialist: Belén Dale MD Immature granulocytes/100 WBC (Bld) 1 % High 0 [facility] Comment on above: Performed By: #### Ian G, BMPX, CDP #### [address] [place], [place] [address]11[address]83 Quality Control Specialist: Belén Dale MD Lymphocytes (Bld) [#/Vol] 0.78 10*3/uL Low 1.10-3.70 [facility] Comment on above: Performed By: #### Ian Espinosa, BMPX, CDP #### [address] [place] [address] Quality Control Specialist: Belén Dale MD Lymphocytes/100 WBC (Bld) 7 % Low 24-43 [facility] Comment on above: Performed By: #### Ian Espinosa BMPX, CDP #### [address] [place], [facility]83 Quality Control Specialist: Belén Dale MD MCH (RBC) [Entitic mass] 29.6 pg Normal 25.2-33.5 [facility] Comment on above: Performed By: #### Ian Espinosa BMPX, CDP #### [address] [place] [address] Quality Control Specialist: Belén Dale MD MCHC (RBC) [Mass/Vol] 33.3 g/dL Normal 28.4-34.8 [facility] Comment on above: Performed By: #### Ian Espinosa BMPX, CDP #### [address] [place] [address] Quality Control Specialist: Belén Dale MD MCV (RBC) [Entitic vol] 88.7 fL Normal 82.6-102.9 [facility] Comment on above: Performed By: #### Ian Espinosa BMPX, CDP #### [address] [place] [address] Quality Control Specialist: Belén Dale MD Monocytes (Bld) [#/Vol] 0.19 10*3/uL Normal 0.10-1.20 [facility] Comment on above: Performed By: #### M G, BMPX, CDP #### [facility] [address] [place], [place] 5598283 Quality Control Specialist: Belén Dale MD Monocytes/100 WBC (Bld) 2 % Low 3-12 [facility] Comment on above: Performed By: #### M G, BMPX, CDP #### [facility] [address] [place], [facility]83 Quality Control Specialist: Belén Dale MD Neutrophil (Seg) 90 % High 36-65 [facility] Comment on above: Performed By: #### M G, BMPX, CDP #### [facility] [address] [place], [facility]83 Quality Control Specialist: Belén Dale MD NRBC Automated 0.0 per 100 WBC Normal 0.0 [facility] Comment on above: Performed By: #### M Francisca, BMPX, CDP #### [facility] [address] [place], [place] 4189783 Quality Control Specialist: Belén Dale MD Platelet mean volume (Bld) [Entitic vol] 9.6 fL Normal 8.1-13.5 [facility] Comment on above: Performed By: #### M G, BMPX, CDP #### [facility] [address] [place], [place] 8977683 Quality Control Specialist: Belén Dale MD Platelets (Bld) [#/Vol] 254 10*3/uL Normal 138-453 [facility] Comment on above: Performed By: #### M G, BMPX, CDP #### [facility] [address] [place], [place] 2737483 Quality Control Specialist: Belén Dale MD RBC (Bld) [#/Vol] 4.94 10*6/uL Normal 3.95-5.11 [facility] Comment on above: Performed By: #### M CELESTINA Espinosa, CDP #### [facility] [address] [place], [place] 3858483 Quality Control Specialist: Belén Dale MD WBC (Bld) [#/Vol] 10.5 10*3/uL Normal 3.5-11.3 [facility] Comment on above: Performed By: #### M CELESTINA Espinosa, CDP #### [facility] [address] [place] [address] Quality Control Specialist: Belén Dale MD CT SOFT TISSUE NECK [...] Justin Hatfield MD 01/08/22 Final result Normal [facility] D-Dimer Teston 01-08-2022 D-Dimer Test 0.46 mg/L FEU Normal 0.00-0.[address] [facility] Comment on above: Result Comment: [...] DVT. Performed By: #### M CELESTINA Espinosa, CDP #### [facility] [address] [place] [address] Quality Control Specialist: Belén Dale MD Resp Viral Panelon Source: .NASOPHARYNGEAL SWAB Normal [facility] Comment on above: Performed By: #### M CELESTINA Espinosa, CDP #### [facility] [address] [place] [address] Quality Control Specialist: Belén Dale MD TSH w/reflex to FT4on 2021 Thyroid Stim. Horm. 0.07 uIU/mL Low 0.30-5.00 [facility] Comment on above: Performed By: #### CELESTINA Cam, CDP #### [facility] [address] [place] [address] Quality Control Specialist: Belén Dale MD Thyroxine, Freeon 01-08-2022 Thyroxine, Free 1.35 ng/dL Normal 0.93-1.[address] [facility] Comment on above: Performed By: #### CELESTINA Cam, CDP #### [facility] [address] [place] [address] [place] [address] Quality Control Specialist: Belén Dale MD Troponinon 01-08-2022 Troponin, High Sens <6 Normal 0-14 [facility] Comment on above: Result Comment: High Sensitivity Troponin values cannot be compared with other Troponin methodologies. Patients with high levels of Biotin oral intake (i.e >5mg/day) may have falsely decreased Troponin levels. Samples collected within 8 hours of biotin intake may require additional information for diagnosis. Performed By: #### CELESTINA Cam CDP #### [facility] [address] [place] [address] [place] [address] Quality Control Specialist: Belén Dale MD Venous Blood Gaseson 022 Body Temp. 37.0 Normal [facility] Comment on above: Performed By: #### CELESTINA Cam, CDP #### [facility] [address] [place] [address] [place] [address] Quality Control Specialist: Belén Dale MD HCO3 (Bld) [Moles/Vol] 15.8 mmol/L Low 24.0-30.0 [facility] Comment on above: Performed By: #### CELESTINA Cam, CDP #### [facility] [address] [place] [address] [place] [address] Quality Control Specialist: Belén Dale MD Negative Base Excess 5.2 mmol/L High 0.0-2.0 [facility] Comment on above: Performed By: #### M G, BMPX, CDP #### [facility] [address] [place], [place] 3658883 Quality Control Specialist: Belén Dale MD O2 Device/Flow/% ROOM AIR Normal [facility] Comment on above: Performed By: #### M G, BMPX, CDP #### [facility] [address] [place], [place] 99[address]3 Quality Control Specialist: Belén Dale MD Oxygen saturation in Blood 94.9 % High 60.0-85.0 [facility] Comment on above: Performed By: #### M Francisca, BMPX, CDP #### [facility] [address] [place], [place] 0144383 Quality Control Specialist: Belén Dale MD pCO2 21.7 mm Hg Low 39-55 [facility] Comment on above: Performed By: #### M Francisca BMPX, CDP #### [facility] [address] [place], [place] 8009683 Quality Control Specialist: Belén Dale MD pH (Bld) 7.481 [pH] High 7.32-7.42 [facility] Comment on above: Performed By: #### M Francisca BMPX, CDP #### [facility] [address] [place], [place] 7646383 Quality Control Specialist: Belén Dale MD pO2 66.6 mm Hg High 30.0-50.0 [facility] Comment on above: Performed By: #### M Francisca, BMPX, CDP #### [facility] [address] [place] [address] Quality Control Specialist: Belén Dale MD Pt. Position [facility] Comment on above: Performed By: #### M G, BMPX, CDP #### [facility] [address] [place] [address] Quality Control Specialist: Belén Dale MD Respiratory rate 31 /min Normal [facility] Comment on above: Performed By: #### M Francisca BMPX, CDP #### [facility] [address] [address] Quality Control Specialist: Belén Dale MD XR CHEST PORTABLEon 01-09-20 [...] Antelmo Ramírez MD 01/08/22 Final result Normal [facility] Basic Metab w/rfx MGon 01-07 Potassium [Moles/Vol] 3.1 mmol/L Low 3.7-5.3 [facility] Comment on above: Performed By: #### Ian Espinosa BMPX, CDP #### [facility] [address] [place] [address] Quality Control Specialist: Belén Dale MD Anion gap [Moles/Vol] 14 mmol/L Normal - [facility] Comment on above: Performed By: #### Ian Espinosa BMPX, CDP #### [facility] [address] [place] [address] Quality Control Specialist: Belén Dale MD BUN/CRE Ratio 9 Normal 10-25 [facility] Comment on above: Performed By: #### Ian Espinosa BMPX, CDP #### [facility] [address] [place] [address] Quality Control Specialist: Belén Dale MD Calcium [Mass/Vol] 9.2 mg/dL Normal 8.6-10.4 [facility] Comment on above: Performed By: #### M Francisca BMPX, CDP #### [facility] [address] [place], [place] 4906183 Quality Control Specialist: Belén Dale MD Chloride [Moles/Vol] 103 mmol/L Normal 98-107 [facility] Comment on above: Performed By: #### M Francisca, BMPX, CDP #### [facility] [address] [place] [address] Quality Control Specialist: Belén Dale MD CO2 [Moles/Vol] 20 mmol/L Normal 20-[address] [facility] Comment on above: Performed By: #### M Francisca BMPX, CDP #### [facility] [address] [place] [address] Quality Control Specialist: Bleén Dale MD Creatinine [Mass/Vol] 0.95 mg/dL High 0.50-0.90 [facility] Comment on above: Performed By: #### Ian Espinosa BMPX, CDP #### [facility] [address] [place] [address] Quality Control Specialist: Belén Dale MD GFR/1.73 sq M.predicted among non-blacks MDRD (S/P/Bld) [Vol rate/Area] mL/min/{1.73_m2} Normal >60 [facility] Comment on above: Result Comment: Effective Nov [...] By: #### M Francisca, BMPX, CDP #### [facility] [address] [place] [address] Quality Control Specialist: Belén Dale MD Glucose [Mass/Vol] 180 mg/dL High 70-99 [facility] Comment on above: Performed By: #### M G, BMPX, CDP #### [facility] [address] [place], [place] [id number] Quality Control Specialist: Belén Dale MD Sodium [Moles/Vol] 137 mmol/L Normal 135-144 [facility] Comment on above: Performed By: #### M G, BMPX, CDP #### [facility] [address] [place], [facility] Quality Control Specialist: Belén Dale MD Urea nitrogen [Mass/Vol] 9 mg/dL Normal 6-20 [facility] Comment on above: Performed By: #### Ian Espinosa BMPX, CDP #### [address] [place] [id number] Quality Control Specialist: Belén Dale MD CBC with Diffon 01-07-2022 Abs. Basophil <0.03 Normal 0.00-0.20 [facility] Comment on above: Performed By: #### Ian Espinosa, BMPX, CDP #### [address] [place], [facility] Quality Control Specialist: Belén Dale MD Abs.Imm.Granulocyte <0.03 Normal 0.00-0.30 [facility] Comment on above: Performed By: #### Ian Espinosa BMPX, CDP #### [address] [place], [facility] Quality Control Specialist: Belén Dale MD Abs.Neutrophil (Seg) 3.22 k/uL Normal 1.50-8.10 [facility] Comment on above: Performed By: #### Ian Espinosa BMPX, CDP #### [address] [place], [facility] Quality Control Specialist: Belén Dale MD Basophils/100 WBC (Bld) 0 % Normal 0-2 [facility] Comment on above: Performed By: #### M G, BMPX, CDP #### [facility] [address] [place], [place] [id number] Quality Control Specialist: Belén Dale MD Eosinophils (Bld) [#/Vol] 0.12 10*3/uL Normal 0.00-0.44 [facility] Comment on above: Performed By: #### M G, BMPX, CDP #### [address] [place], [place] [id number] Quality Control Specialist: Belén Dale MD Eosinophils/100 WBC (Bld) 3 % Normal 1-4 [facility] Comment on above: Performed By: #### M G, BMPX, CDP #### [address] [place], [facility] Quality Control Specialist: Belén Dale MD Erythrocyte distribution width (RBC) [Ratio] 11.7 % Low 11.8-14.4 [facility] Comment on above: Performed By: #### Ian Espinosa, BMPX, CDP #### [address] [place], [facility] Quality Control Specialist: Belén Dale MD Hematocrit (Bld) [Volume fraction] 41.1 % Normal 36.3-47.1 [facility] Comment on above: Performed By: #### M G, BMPX, CDP #### [address] [place], [facility]83 Quality Control Specialist: Belén Dale MD Hemoglobin (Bld) [Mass/Vol] 14.1 g/dL Normal 11.9-15.1 [facility] Comment on above: Performed By: #### M G, BMPX, CDP #### [address] [place], [place] [id number] Quality Control Specialist: Belén Dale MD Immature granulocytes/100 WBC (Bld) 0 % Normal 0 [facility] Comment on above: Performed By: #### M G, BMPX, CDP #### [address] [place] [id number] Quality Control Specialist: Belén Dale MD Lymphocytes (Bld) [#/Vol] 1.14 10*3/uL Normal 1.10-3.70 [facility] Comment on above: Performed By: #### M G, BMPX, CDP #### [facility] [address] [place], [place] [id number] Quality Control Specialist: Belén Dale MD Lymphocytes/100 WBC (Bld) 23 % Low 24-43 [facility] Comment on above: Performed By: #### Ian Espinosa, BMPX, CDP #### [address] [place], [facility]83 Quality Control Specialist: Belén Dale MD MCH (RBC) [Entitic mass] 29.8 pg Normal 25.2-33.5 [facility] Comment on above: Performed By: #### Ian Espinosa BMPX, CDP #### [address] [place], [facility]83 Quality Control Specialist: Belén Dale MD MCHC (RBC) [Mass/Vol] 34.3 g/dL Normal 28.4-34.8 [facility] Comment on above: Performed By: #### Ian Espinosa, BMPX, CDP #### [address] [place], [facility]83 Quality Control Specialist: Belén Dale MD MCV (RBC) [Entitic vol] 86.9 fL Normal 82.6-102.9 [facility] Comment on above: Performed By: #### Ian Espinosa, BMPX, CDP #### [address] [place], [place] [id number] Quality Control Specialist: Belén Dale MD Monocytes (Bld) [#/Vol] 0.36 10*3/uL Normal 0.10-1.20 [facility] Comment on above: Performed By: #### Ian Espinosa, BMPX, CDP #### [address] [place], [place] [address]83 Quality Control Specialist: Belén Dale MD Monocytes/100 WBC (Bld) 7 % Normal 3-12 [facility] Comment on above: Performed By: #### M G, BMPX, CDP #### [facility] [address] [place] [address] Quality Control Specialist: Belén Dale MD Neutrophil (Seg) 67 % High 36-65 [facility] Comment on above: Performed By: #### M G, BMPX, CDP #### [facility] [address] [place], [place] [id number] Quality Control Specialist: Belén Dale MD NRBC Automated 0.0 per 100 WBC Normal 0.0 [facility] Comment on above: Performed By: #### M Francisca, BMPX, CDP #### [address] [place], [place] [id number] Quality Control Specialist: Belén Dale MD Platelet mean volume (Bld) [Entitic vol] 9.5 fL Normal 8.1-13.5 [facility] Comment on above: Performed By: #### Ian Espinosa, BMPX, CDP #### [address] [place], [place] [id number] Quality Control Specialist: Belén Dale MD Platelets (Bld) [#/Vol] 180 10*3/uL Normal 138-453 [facility] Comment on above: Performed By: #### M G, BMPX, CDP #### [facility] [address] [place], [place] [id number] Quality Control Specialist: Belén Dale MD RBC (Bld) [#/Vol] 4.73 10*6/uL Normal 3.95-5.11 [facility] Comment on above: Performed By: #### M G, BMPX, CDP #### [facility] [address] [place], [place] [address]83 Quality Control Specialist: Belén Dale MD WBC (Bld) [#/Vol] 4.9 10*3/uL Normal 3.5-11.3 [facility] Comment on above: Performed By: #### Ian Espinosa BMPX, CDP #### [facility] [address] [place] [address] Quality Control Specialist: Belén Dale MD Flu A/B Ag Detectionon 01-07 Flu A Ag Detection Negative Normal NEG [facility] Comment on above: Result Comment: for Influenza A Antigen Performed By: #### Ian Espinosa BMPX, CDP #### [facility] [address] [place], [place] [id number] Quality Control Specialist: Belén Dale MD Flu B Ag Detection Negative Normal NEG [facility] Comment on above: Result Comment: for Influenza B Antigen. Performed By: #### CELESTINA Cam, CDP #### [facility] [address] [place] [address] [place] [address] Quality Control Specialist: Belén Dale MD Magnesiumon 01-07-2022 Magnesium [Mass/Vol] 1.8 mg/dL Normal 1.6-2.6 [facility] Comment on above: Performed By: #### Ian Espinosa BMPX, CDP #### [facility] [address] [place] [address] Dr[place], [place] [id number] Quality Control Specialist: Belén Dale MD [id number] 01-07-2022 SARS-CoV-2 (COVID-19) RNA CHRISTI+probe Ql (Unsp spec) Not detected Normal NOTDET [facility] Comment on above: Result Comment: Rapid NAAT: [...] management decisions. Fact sheet for Healthcare Providers: https://www.fda.gov/media/857686/download Fact sheet for Patients: https://www.fda.gov/media/146704/download Methodology: Isothermal Nucleic Acid Amplification Performed By: #### C OVRB #### [facility] [address] [place] [address] Quality Control Specialist: Belén Dale MD XR CHEST PORTABLEon 01-08-20 [...] Vania Rodríguez MD 01/07/22 Final result Normal [facility] XR NECK SOFT TISSUEon 2021 XR NECK [...] Susy Martin MD 01/07/22 Final result Normal [facility] US KIDNEYSon 12-26-2021 US KIDNEYS EXAMINATION: US [...] BELÉN ANDRADE Date: 2021-12-26 07:22 Normal [facility] CBC AUTO DIFFon 12-12-2021 BASO # 0.0 103/ul Normal 0.0-0.1 [facility] Comment on above: Performed By: #### C MP #### [facility] [address] [address] [address] Nilton Mccall Basophils/100 WBC (Bld) 0.5 % Normal 0.2-2.0 [facility] Comment on above: Performed By: #### C MP #### [facility] [address] [address] [address] Niltno Mccall EO # 0.2 103/ul Normal 0.0-0.7 [facility] Comment on above: Performed By: #### C MP #### [facility] [address] [address] [address] Nilton Mccall Eosinophils/100 WBC (Bld) 3.2 % Normal 0.9-7.0 [facility] Comment on above: Performed By: #### C MP #### [facility] [address] [place] [address] Dr. Nilton Mccall Erythrocyte distribution width (RBC) [Ratio] 11.9 % Normal 11.0-15.0 [facility] Comment on above: Performed By: #### C MP #### [facility] [address] [place] [address] Dr. Nilton Mccall Hematocrit (Bld) [Volume fraction] 42.8 % Normal 36.0-48.0 [facility] Comment on above: Performed By: #### C MP #### [facility] [address] [place] [address] Dr. Nilton Mccall Hemoglobin (Bld) [Mass/Vol] 14.4 g/dL Normal 12.0-16.0 [facility] Comment on above: Performed By: #### C MP #### [facility] [address] [place] [address] Dr. Nilton Mccall IG # 0.02 10e3/ul Normal 0.00-0.03 [facility] Comment on above: Performed By: #### C MP #### [facility] [address] [place] [address] Dr. Nilton Mccall IG % 0.3 % Normal 0.0-0.5 [facility] Comment on above: Performed By: #### C MP #### [facility] [address] [place] [address] Dr. Nilton Mccall LYMPH # 1.4 103/ul Normal 1.2-3.8 [facility] Comment on above: Performed By: #### C MP #### [facility] [address] [place] [address] Dr. Nilton Mccall Lymphocytes/100 WBC (Bld) 22.3 % Normal 20.5-60.0 [facility] Comment on above: Performed By: #### C MP #### [facility] [address] [place] [address] Dr. Nilton Mccall MANUAL DIFF REQ NO Normal [facility] Comment on above: Performed By: #### C MP #### [facility] [address] [place] [address] Dr. Nilton Mccall MCH (RBC) [Entitic mass] 28.9 pg Normal 26.7-34.0 [facility] Comment on above: Performed By: #### C MP #### [facility] [address] [place] [address] Dr. Nilton Mccall MCHC (RBC) [Mass/Vol] 33.6 g/dL Normal 29.9-35.2 [facility] Comment on above: Performed By: #### C MP #### [facility] [address] [place] [address] Dr. Nilton Mccall MCV (RBC) [Entitic vol] 85.9 fL Normal 81.0-99.0 [facility] Comment on above: Performed By: #### C MP #### [facility] [address] [place] [address] Dr. Nilton Mccall MONO # 0.3 103/ul Normal 0.3-0.8 [facility] Comment on above: Performed By: #### C MP #### [facility] [address] [place] [address] Dr. Nilton Mccall Monocytes/100 WBC (Bld) 4.9 % Normal 1.7-12.0 [facility] Comment on above: Performed By: #### C MP #### [facility] [address] [place] [address] Dr. Nilton Mccall NEUT # 4.4 103/ul Normal 1.4-6.5 [facility] Comment on above: Performed By: #### C MP #### [facility] [address] [place] [address] Dr. Nilton Mccall Neutrophils/100 WBC (Bld) 68.8 % Normal 43.0-75.0 [facility] Comment on above: Performed By: #### C MP #### [facility] [address] [place] [address] Dr. Nilton Mccall Platelet mean volume (Bld) [Entitic vol] 9.9 fL Normal 9.5-13.5 [facility] Comment on above: Performed By: #### C MP #### [facility] [address] [address] [address] Nilton Mccall PLT 237 103/ul Normal 150-450 [facility] Comment on above: Performed By: #### C MP #### [facility] [address] [address] [address] Nilton Mccall RBC 4.98 106/ul Normal 4.20-5.40 [facility] Comment on above: Performed By: #### C MP #### [facility] [address] [address] [address] Nilton Mccall WBC 6.3 103/ul Normal 4.0-11.0 [facility] Comment on above: Performed By: #### C MP #### [facility] [address] [place] [address] Dr. Nilton Mccall GLYCOHEMOGLOBIN A1Con 2021 ADA RECOMMENDATION SEE BELOW Normal [facility] Comment on above: Result Comment: ADA RECOMMENDED LIMIT 4.0 - 6.0 ADA THERAPEUTIC TARGET < 7.0 ACTION SUGGESTED > 7.0 Performed By: #### P T, PTT #### [facility] [address] [place] [address] Dr. Nilton Mccall Glucose [Mass/Vol] 120 mg/dL Normal [facility] Comment on above: Performed By: #### P T, PTT #### [facility] [address] [address] [address] Nilton Mccall HbA1c (Bld) [Mass fraction] 5.8 % Normal 4.5-6.2 [facility] Comment on above: Performed By: #### P T, PTT #### [facility] [address] [address] [address] Nilton Mccall LIPID PROFILEon 12-12-2021 CHOL-HDL RATIO NORM SEE BELOW Normal [facility] Comment on above: Result Comment: 3.3 - 4.4 LOW RISK 4.4 - 7.1 AVERAGE RISK 7.1 - 11.0 MODERATE RISK >11.0 HIGH RISK Performed By: #### P T, PTT #### [facility] [address] [address] [address] Nilton Mccall Cholesterol [Mass/Vol] 225 mg/dL Critically high <=200 [facility] Comment on above: Performed By: #### P T, PTT #### [facility] [address] [address] [address] Nilton Mccall Cholesterol in HDL [Mass/Vol] 32 mg/dL Critically low 40-60 [facility] Comment on above: Performed By: #### P T, PTT #### [facility] [address] [address] [address] Nilton Mccall Cholesterol in LDL [Mass/Vol] 132.8 mg/dL Normal [facility] Comment on above: Performed By: #### P T, PTT #### [facility] [address] [address] [address] Nilton Mccall Cholesterol.total/Ch olesterol in HDL [Mass ratio] 7.0 {ratio} Normal [facility] Comment on above: Performed By: #### P T, PTT #### [facility] [address] [address] [address] Nilton Mccall HDL NORMAL > or = 60 mg/dl - LO W CARDIOVASCULAR RISK <40 mg/dl - HIGH CARDIOVASCULAR RISK Normal [facility] Comment on above: Performed By: #### P T, PTT #### [facility] [address] [address] [address] Nilton Mccall LDL CALC NORMAL SEE BELOW Normal [facility] Comment on above: Result Comment: <100 mg/dl OPTIMAL 100 - 129 mg/dl NEAR OR ABOVE OPTIMAL 130 - 159 mg/dl BORDERLINE HIGH 160 - 189 mg/dl HIGH >190 mg/dl VERY HIGH Performed By: #### P T, PTT #### [facility] [address] [address] [address] Nilton Mccall Triglyceride [Mass/Vol] 301 mg/dL Critically high <=150 [facility] Comment on above: Performed By: #### P T, PTT #### [facility] [address] [address] [address] Nilton Mccall VLDL CALC 60.2 mg/dL Normal [facility] Comment on above: Performed By: #### P T, PTT #### [facility] [address] [address] [address] Nilton Mccall LIVER PROFILEon 12-12-2021 Albumin [Mass/Vol] 4.0 g/dL Normal 3.4-5.0 [facility] Comment on above: Performed By: #### P T, PTT #### [facility] [address] [address] [address] Nilton Mccall Albumin/Globulin [Mass ratio] 1.1 {ratio} Normal [facility] Comment on above: Performed By: #### P T, PTT #### [facility] [address] [place] [address] Dr. Nilton Mccall ALP [Catalytic activity/Vol] 70 U/L Normal 46-116 [facility] Comment on above: Performed By: #### P T, PTT #### [facility] [address] [place] [address] Dr. Nilton Mccall ALT [Catalytic activity/Vol] 30 U/L Normal 14-59 [facility] Comment on above: Performed By: #### P T, PTT #### [facility] [address] [place] [address] Dr. Nilton Mccall AST [Catalytic activity/Vol] 15 U/L Normal 15-37 [facility] Comment on above: Performed By: #### P T, PTT #### [facility] [address] [address] [address] Nilton Mccall BILI, CONJUGATED 0.1 mg/dL Normal 0.0-0.2 [facility] Comment on above: Performed By: #### P T, PTT #### [facility] [address] [place] [address] Dr. Nilton Mccall Bilirubin [Mass/Vol] 0.3 mg/dL Normal 0.2-1.0 [facility] Comment on above: Performed By: #### P T, PTT #### [facility] [address] [place] [address] Dr. Nilton Mccall Globulin (S) [Mass/Vol] 3.5 g/dL Normal [facility] Comment on above: Performed By: #### P T, PTT #### [facility] [address] [address] [address] Nilton Mccall Protein [Mass/Vol] 7.5 g/dL Normal 6.4-8.2 [facility] Comment on above: Performed By: #### P T, PTT #### [facility] [address] [place] [address] Dr. Nilton Mccall PROF CHEM 8 (BAS METB)on Anion gap [Moles/Vol] 7.2 mmol/L Normal [facility] Comment on above: Performed By: #### P T, PTT #### [facility] [address] [place] [address] Dr. Nilton Mccall Calcium [Mass/Vol] 9.1 mg/dL Normal 8.5-10.1 [facility] Comment on above: Performed By: #### P T, PTT #### [facility] [address] [place] [address] Dr. Nilton Mccall Chloride [Moles/Vol] 104 mmol/L Normal 98-107 [facility] Comment on above: Performed By: #### P T, PTT #### [facility] [address] [place] [address] Dr. Nilton Mccall CO2 [Moles/Vol] 29.7 mmol/L Normal 21.0-32.0 [facility] Comment on above: Performed By: #### P T, PTT #### [facility] [address] [place] [address] Dr. Nilton Mccall Creatinine [Mass/Vol] 0.97 mg/dL Normal 0.55-1.02 [facility] Comment on above: Performed By: #### P T, PTT #### [facility] [address] [place] [address] Dr. Nilton Mccall EGFR-AF SWEDISH >60 Normal >=60 [facility] Comment on above: Performed By: #### P T, PTT #### [facility] [address] [place] [address] Dr. Nilton Mccall EGFR-NON AF SWEDISH >60 Normal >=60 [facility] Comment on above: Performed By: #### P T, PTT #### [facility] [address] [place] [address] Dr. Nilton Mccall Glucose [Mass/Vol] 92 mg/dL Normal 74-106 [facility] Comment on above: Performed By: #### P T, PTT #### [facility] [address] [place] [address] Dr. Nilton Mccall Potassium [Moles/Vol] 3.9 mmol/L Normal 3.5-5.1 [facility] Comment on above: Performed By: #### P T, PTT #### [facility] [address] [place] [address] Dr. Nilton Mccall Sodium [Moles/Vol] 137 mmol/L Normal 136-145 [facility] Comment on above: Performed By: #### P T, PTT #### [facility] [address] [place] [address] Dr. Nilton Mccall Urea nitrogen [Mass/Vol] 14.0 mg/dL Normal 7.0-18.0 [facility] Comment on above: Performed By: #### P T, PTT #### [facility] [address] [place] [address] Dr. Nilton Mccall Urea nitrogen/Creatinine [Mass ratio] 14.4 mg/mg Normal [facility] Comment on above: Performed By: #### P T, PTT #### [facility] [address] [place] [address] Dr. Nilton Mccall TSHon 12-12-2021 TSH 0.340 uIU/mL Critically low 0.358-3.74 0 [facility] Comment on above: Performed By: #### P T, PTT #### [facility] [address] [place] [address] Dr. Nilton Mccall VITAMIN D 25 OHon 12-12-2021 VIT D 25-OH 44.3 ng/mL Normal [facility] Comment on above: Performed By: #### P T, PTT #### [facility] [address] [place] [address] Dr. Nilton Mccall VIT D RANGES SEE BELOW Normal [facility] Comment on above: Result Comment: <20 ng/mL Vit D deficient 20 - <30 ng/mL Vit D insufficient 30 - 100 ng/mL Vit D sufficient >100 ng/mL Potential Toxicity Performed By: #### P T, PTT #### [facility] [address] [place] [address] Dr. Nilton Mccall CULTURE URINEon 11-18-2021 CULTURE URINE Culture Observations : HEAVY GROWTH OF MIXED GENITAL CHANCE. NO POTENTIAL PATHOGENS SEEN. Normal [facility] Comment on above: Performed By: #### P T, PTT #### [facility] [address] [place] [address] Dr. Nilton Mccall CBC AUTO DIFFon 11-14-2021 BASO # 0.0 103/ul Normal 0.0-0.1 [facility] Comment on above: Performed By: #### P T, PTT #### [facility] [address] [place] [address] Dr. Nilton Mccall Basophils/100 WBC (Bld) 0.6 % Normal 0.2-2.0 [facility] Comment on above: Performed By: #### P T, PTT #### [facility] [address] [place] [address] Dr. Nilton Mccall EO # 0.2 103/ul Normal 0.0-0.7 [facility] Comment on above: Performed By: #### P T, PTT #### [facility] [address] [place] [address] Dr. Nilton Mccall Eosinophils/100 WBC (Bld) 2.6 % Normal 0.9-7.0 [facility] Comment on above: Performed By: #### P T, PTT #### [facility] [address] [place] [address] Dr. Nilton Mccall Erythrocyte distribution width (RBC) [Ratio] 11.9 % Normal 11.0-15.0 [facility] Comment on above: Performed By: #### P T, PTT #### [facility] [address] [place] [address] Dr. Nilton Mccall Hematocrit (Bld) [Volume fraction] 39.7 % Normal 36.0-48.0 [facility] Comment on above: Performed By: #### P T, PTT #### [facility] [address] [place] [address] Dr. Nilton Mccall Hemoglobin (Bld) [Mass/Vol] 13.8 g/dL Normal 12.0-16.0 [facility] Comment on above: Performed By: #### P T, PTT #### [facility] [address] [place] [address] Dr. Nilton Mccall IG # 0.03 10e3/ul Normal 0.00-0.03 [facility] Comment on above: Performed By: #### P T, PTT #### [facility] [address] [place] [address] Dr. Nilton Mccall IG % 0.5 % Normal 0.0-0.5 [facility] Comment on above: Performed By: #### P T, PTT #### [facility] [address] [place] [address] Dr. Nilton Mccall LYMPH # 1.7 103/ul Normal 1.2-3.8 [facility] Comment on above: Performed By: #### P T, PTT #### [facility] [address] [place] [address] Dr. Nilton Mccall Lymphocytes/100 WBC (Bld) 26.0 % Normal 20.5-60.0 [facility] Comment on above: Performed By: #### P T, PTT #### [facility] [address] [place] [address] Dr. Nilton Mccall MANUAL DIFF REQ NO Normal [facility] Comment on above: Performed By: #### P T, PTT #### [facility] [address] [place] [address] Dr. Nilton Mccall MCH (RBC) [Entitic mass] 29.6 pg Normal 26.7-34.0 [facility] Comment on above: Performed By: #### P T, PTT #### [facility] [address] [place] [address] Dr. Nilton Mccall MCHC (RBC) [Mass/Vol] 34.8 g/dL Normal 29.9-35.2 [facility] Comment on above: Performed By: #### P T, PTT #### [facility] [address] [place] [address] Dr. Nilton Mccall MCV (RBC) [Entitic vol] 85.0 fL Normal 81.0-99.0 [facility] Comment on above: Performed By: #### P T, PTT #### [facility] [address] [place] [address] Dr. Nilton Mccall MONO # 0.3 103/ul Normal 0.3-0.8 [facility] Comment on above: Performed By: #### P T, PTT #### [facility] [address] [place] [address] Dr. Nilton Mccall Monocytes/100 WBC (Bld) 5.1 % Normal 1.7-12.0 [facility] Comment on above: Performed By: #### P T, PTT #### [facility] [address] [place] [address] Dr. Nilton Mccall NEUT # 4.2 103/ul Normal 1.4-6.5 [facility] Comment on above: Performed By: #### P T, PTT #### [facility] [address] [place] [address] Dr. Nilton Mccall Neutrophils/100 WBC (Bld) 65.2 % Normal 43.0-75.0 [facility] Comment on above: Performed By: #### P T, PTT #### [facility] [address] [place] [address] Dr. Nilton Mccall Platelet mean volume (Bld) [Entitic vol] 9.4 fL Critically low 9.5-13.5 [facility] Comment on above: Performed By: #### P T, PTT #### [facility] [address] [place] [address] Dr. Nilton Mccall PLT 232 103/ul Normal 150-450 [facility] Comment on above: Performed By: #### P T, PTT #### [facility] [address] [place] [address] Dr. Nilton Mccall RBC 4.67 106/ul Normal 4.20-5.40 [facility] Comment on above: Performed By: #### P T, PTT #### [facility] [address] [address] [address] Nilton Mccall WBC 6.4 103/ul Normal 4.0-11.0 [facility] Comment on above: Performed By: #### P T, PTT #### [facility] [address] ABD/PELVIS WO CONon [...] BELÉN ANDRADE Date: 2021-11-14 14:24 Normal [facility] ER URINE PROFILEon 2 Bilirubin Ql (U) Negative Normal NEGATIVE [facility] Comment on above: Performed By: #### C BC #### [facility] [address] [place] [address] Dr. Nilton Mccall Clarity (U) CLEAR Normal CLEAR [facility] Comment on above: Performed By: #### C BC #### [facility] [address] [address] [address] Nilton Mccall Color (U) LT. YELLOW Normal YELLOW [facility] Comment on above: Performed By: #### C BC #### [facility] [address] [place] [address] Dr. Nilton SINGLETON A micrscopic examina tion will be performed if indicated. Normal [facility] Comment on above: Performed By: #### C BC #### [facility] [address] [place] [address] Dr. Nilton Mccall Glucose Ql (U) Negative Normal NEGATIVE [facility] Comment on above: Performed By: #### C BC #### [facility] [address] [place] [address] Dr. Nilton Mccall Hemoglobin Ql (U) Negative Normal NEGATIVE [facility] Comment on above: Performed By: #### C BC #### [facility] [address] [place] [address] Dr. Nilton Mccall Ketones Ql (U) Negative Normal NEGATIVE [facility] Comment on above: Performed By: #### C BC #### [facility] [address] [place] [address] Dr. Nilton Mccall LEUKOCYTES Negative Normal NEGATIVE [facility] Comment on above: Performed By: #### C BC #### [facility] [address] [place] [address] Dr. Nilton Mccall Nitrite Ql (U) Negative Normal NEGATIVE [facility] Comment on above: Performed By: #### C BC #### [facility] [address] [place] [address] Dr. Nilton Mccall pH (U) 6.0 [pH] Normal 5-9 [facility] Comment on above: Performed By: #### C BC #### [facility] [address] [place] [address] Dr. Nilton Mccall SPEC GRAVITY 1.025 Normal 1.005-<=1. 025 [facility] Comment on above: Performed By: #### C BC #### [facility] [address] [place] [address] Dr. Nilton Mccall UA PROTEIN Negative Normal NEGATIVE/ TRACE [facility] Comment on above: Performed By: #### C BC #### [facility] [address] [address] [address] Nilton Mccall UR MICRO IND NOT INDICATED Normal [facility] Comment on above: Performed By: #### C BC #### [facility] [address] [place] [address] Dr. Nilton Mccall Urobilinogen Qn (U) 0.2 {Zarina'U}/dL Normal 0.2 - 1. 0 [facility] Comment on above: Performed By: #### C BC #### [facility] [address] [place] [address] Dr. Nilton Mccall MONOon 11-14-2021 Monocytes (Bld) [#/Vol] Negative Normal NEGATIVE [facility] Comment on above: Performed By: #### P T, PTT #### [facility] [address] [place] [address] Dr. Nilton Mccall PROF 14(COMP METB)on 022 Albumin [Mass/Vol] 3.8 g/dL Normal 3.4-5.0 [facility] Comment on above: Performed By: #### C MP #### [facility] [address] [place] [address] Dr. Nilton Mccall Albumin/Globulin [Mass ratio] 1.2 {ratio} Normal [facility] Comment on above: Performed By: #### C MP #### [facility] [address] [place] [address] Dr. Nilton Mccall ALP [Catalytic activity/Vol] 65 U/L Normal 46-116 [facility] Comment on above: Performed By: #### C MP #### [facility] [address] [place] [address] Dr. Nilton Mccall ALT [Catalytic activity/Vol] 29 U/L Normal 14-59 [facility] Comment on above: Performed By: #### C MP #### [facility] [address] [place] [address] Dr. Nilton Mccall Anion gap [Moles/Vol] 8.6 mmol/L Normal [facility] Comment on above: Performed By: #### C MP #### [facility] [address] [address] [address] Nilton Mccall AST [Catalytic activity/Vol] 13 U/L Critically low 15-37 [facility] Comment on above: Performed By: #### C MP #### [facility] [address] [address] [address] Nilton Mccall Bilirubin [Mass/Vol] 0.4 mg/dL Normal 0.2-1.0 [facility] Comment on above: Performed By: #### C MP #### [facility] [address] [address] [address] Nilton Mccall Calcium [Mass/Vol] 8.9 mg/dL Normal 8.5-10.1 [facility] Comment on above: Performed By: #### C MP #### [facility] [address] [address] [address] Nilton Mccall Chloride [Moles/Vol] 106 mmol/L Normal 98-107 [facility] Comment on above: Performed By: #### C MP #### [facility] [address] [address] [address] Nilton Mccall CO2 [Moles/Vol] 26.2 mmol/L Normal 21.0-32.0 [facility] Comment on above: Performed By: #### C MP #### [facility] [address] [address] [address] Nilton Mccall Creatinine [Mass/Vol] 1.12 mg/dL Critically high 0.55-1.02 [facility] Comment on above: Performed By: #### C MP #### [facility] [address] [address] [address] Nilton Mccall EGFR-AF SWEDISH >60 Normal >=60 [facility] Comment on above: Performed By: #### C MP #### [facility] [address] [address] [address] Nilton Mccall EGFR-NON AF SWEDISH 55 mL/min/1.73m2 Critically low >=60 [facility] Comment on above: Performed By: #### C MP #### [facility] [address] [address] [address] Nilton Mccall Globulin (S) [Mass/Vol] 3.3 g/dL Normal [facility] Comment on above: Performed By: #### C MP #### [facility] [address] [address] [address] Nilton Mccall Glucose [Mass/Vol] 88 mg/dL Normal 74-106 [facility] Comment on above: Performed By: #### C MP #### [facility] [address] [address] [address] Nilton Mccall Potassium [Moles/Vol] 3.8 mmol/L Normal 3.5-5.1 [facility] Comment on above: Performed By: #### C MP #### [facility] [address] [address] [address] Nilton Mccall Protein [Mass/Vol] 7.1 g/dL Normal 6.4-8.2 [facility] Comment on above: Performed By: #### C MP #### [facility] [address] [address] [address] Nilton Mccall Sodium [Moles/Vol] 137 mmol/L Normal 136-145 [facility] Comment on above: Performed By: #### C MP #### [facility] [address] [address] [address] Nilton Mccall Urea nitrogen [Mass/Vol] 14.0 mg/dL Normal 7.0-18.0 [facility] Comment on above: Performed By: #### C MP #### [facility] [address] [address] [address] Nilton Mccall Urea nitrogen/Creatinine [Mass ratio] 12.5 mg/mg Normal [facility] Comment on above: Performed By: #### C MP #### [facility] [address] [place] [address] Dr. Nilton Mccall MG MAMM DIAGNOSTIC 3D LARS CA Don 10-19-2021 MG MAMM DIAGNOSTIC 3D LARS CAD Patient: LEANA TRANKerri Exam Date: 10/19/2021 : 1985 Gender:F Ordering : DR CAS DOWELL . Admission #: [id number] Family : Order #: [id number] CLICK HERE TO VIEW EXAM RADIOLOGY REPORT [...] cervical cancer at age 48. LOCATION: [facility] BREAST COMPOSITION: Scattered areas fibroglandular density. [...] M.D. on 10/19/2021 at 11:10 Normal [facility] US BREAST LARS LIMITEDon - US BREAST LARS LIMITED Patient: LEANA TRAN Exam Date: 10/19/2021 : 1985 Gender:F Ordering : DR CAS DOWELL . Admission #: [id number] Family : Order #: [id number] CLICK HERE TO VIEW EXAM RADIOLOGY REPORT [...] cervical cancer at age 48. LOCATION: [facility] BREAST COMPOSITION: Scattered areas fibroglandular density. [...] M.D. on 10/19/2021 at 11:10 Normal [facility] XR CHEST 2V FRONTAL/LATon [facility] LUNG DIFFUSION CAPACITY (FARHAD O)on 09-27-2021 DLCO (ml/min/mmHg) 22.00 ml/min/mmHg [facility] DLCO/VA (ml/min/mmHg/L) 4.60 ml/min/mmHg/L [facility] DLCOcor (ml/min/mmHg) 21.26 ml/min/mmHg [facility] ERV BOX (L) 0.28 L [facility] GPS17-77% POST (L/S) 2.46 L/S [facility] LYJ94-70% PRE (L/S) 2.13 L/S [facility] [employer] FEV1 PRE (L) 2.83 L [facility] FEV1/FVC POST (%) 74 % [facility] [employer] FEV1/FVC PRE (%) 73 % [facility] [employer] FEV1_POST (L) 2.92 L [facility] FRC Box (L) 1.66 L [facility] FVC POST (L) 3.92 L [facility] FVC PRE (L) 3.89 L [facility] IC BOX (L) 2.36 L [facility] PEF POST (L/S) 5.48 L/S [facility] PEF PRE (L/S) 5.56 L/S [facility] RV Box (L) 1.39 L [facility] RV/TLC Box (%) 32 % [facility] TLC Box (L) 4.36 L [facility] VA (L) 4.78 L [facility] VC (L) BOX 3.51 L [facility] CTA CHEST WO W CONon 022 [...] by: AYAKA STEARNS Date: 2021-09-22 22:30 Normal [facility] PROF CHEM 8 (BAS METB)on Anion gap [Moles/Vol] 5.4 mmol/L Normal [facility] Comment on above: Performed By: #### B MP #### [facility] [address] [place], [place] [address] Dr. Nilton Mccall Calcium [Mass/Vol] 9.2 mg/dL Normal 8.5-10.1 [facility] Comment on above: Performed By: #### B MP #### [facility] [address] [place], [place] [address] Dr. Nilton Mccall Chloride [Moles/Vol] 102 mmol/L Normal 98-107 [facility] Comment on above: Performed By: #### B MP #### [facility] [address] [address] [address] Nilton Mccall CO2 [Moles/Vol] 26.1 mmol/L Normal 21.0-32.0 [facility] Comment on above: Performed By: #### B MP #### [facility] [address] [address] [address] Nilton Mccall Creatinine [Mass/Vol] 0.99 mg/dL Normal 0.55-1.02 [facility] Comment on above: Performed By: #### B MP #### [facility] [address] [address] [address] Nilton Mccall EGFR-AF SWEDISH >60 Normal >=60 [facility] Comment on above: Performed By: #### B MP #### [facility] [address] [address] [address] Nilton Mccall EGFR-NON AF SWEDISH >60 Normal >=60 [facility] Comment on above: Performed By: #### B MP #### [facility] [address] [address] [address] Nilton Mccall Glucose [Mass/Vol] 113 mg/dL Critically high 74-106 [facility] Comment on above: Performed By: #### B MP #### [facility] [address] [address] [address] Nilton Mccall Potassium [Moles/Vol] 3.5 mmol/L Normal 3.5-5.1 [facility] Comment on above: Performed By: #### B MP #### [facility] [address] [address] [address] Nilton Mccall Sodium [Moles/Vol] 130 mmol/L Critically low 136-145 [facility] Comment on above: Performed By: #### B MP #### [facility] [address] [address] [address] Nilton Mccall Urea nitrogen [Mass/Vol] 13.0 mg/dL Normal 7.0-18.0 [facility] Comment on above: Performed By: #### B MP #### [facility] [address] [address] [address] Nilton Mccall Urea nitrogen/Creatinine [Mass ratio] 13.1 mg/mg Normal [facility] Comment on above: Performed By: #### B MP #### [facility] [address] [address] [address] Nilton Mccall GLYCOHEMOGLOBIN A1Con 2021 ADA RECOMMENDATION SEE BELOW Normal [facility] Comment on above: Result Comment: ADA RECOMMENDED LIMIT 4.0 - 6.0 ADA THERAPEUTIC TARGET < 7.0 ACTION SUGGESTED > 7.0 Performed By: #### C BC #### [facility] [address] [address] [address] Nilton Mccall Glucose [Mass/Vol] 140 mg/dL Normal [facility] Comment on above: Performed By: #### C BC #### [facility] [address] [address] [address] Nilton Mccall HbA1c (Bld) [Mass fraction] 6.5 % Critically high 4.5-6.2 [facility] Comment on above: Performed By: #### C BC #### [facility] [address] [address] [address] Nilton Mccall US Pelvis limitedon 08-20-19 IMPRESSION: No inguinal or femoral hernia identified. Quality Measurement Specialist: ROBER Transcribe Date/Time: Aug 19 2021 1:20P Dictated by : LUANNE BRYANT MD This examination was interpreted and the report reviewed and electronically signed by: LUANNE BRYANT MD on Aug 19 2021 2:51PM EST ZZZ_DO_NOT_US E_DIVISION OF RADIOLOGY * * *Final Report* * * DATE OF EXAM: Aug 19 2021 1:14PM [facility] 1043 - US PELVIS LTD / PROCEDURE REASON: multiple diagnoses * * * * Physician Interpretation * * * * MSK_US RIGHT INGUINAL HERNIA ULTRASOUND: CLINICAL INFORMATION: Chronic RLQ pain Chronic RLQ pain TECHNIQUE: Donohue-scale real-time ultrasound of the medial hip and groin with dynamic imaging and power Doppler examination was performed. Images were saved to the permanent image archive. v9. COMPARISON: None FINDINGS: HERNIA EVALUATION: No direct, indirect hernia, or femoral hernia identified with or without valsalva maneuver. INGUINAL LIGAMENT: Normal in appearance. ZZZ_DO_NOT_US E_DIVISION OF RADIOLOGY Provider, Elias Finn - 08/19/2021 * * *Final Report* * * DATE OF EXAM: Aug 19 2021 1:14PM [facility] 1043 - US PELVIS LTD / PROCEDURE REASON: multiple diagnoses * * [...] IMPRESSION: No inguinal or femoral hernia identified. Quality Measurement Specialist: [facility] Transcribe Date/Time: Aug 19 2021 1:20P Dictated by : LUANNE BRYANT MD This examination was interpreted and the report reviewed and electronically signed by: LUANNE BRAYNT MD on Aug 19 2021 2:51PM EST [facility] Radiology Study observation (narrative) [facility] US Pelvis limitedOrdered By: Cc Provider on 08-19-2021 [facility] ECHOon 08-17-2021 Echocardiography Echocardiography Rep ort: Transthoracic Echo [facility] Date of service: 08/17/2021 2:18:31 PM Ordering physician: SAI PEREZ Indication: Hypotension Technologist: Yuni Durbin [facility] Interpreting physician: Gavin Muse MD PATIENT: [...] * * Final * * * CC [employer] : [id number] Normal [facility] LVEF ECHOon 08-17-2021 LV Ejection Fraction 58 % [facility] PAP ACOG PANEL 2: 30 to 65on 08-05-2021 . . Normal [facility] Comment on above: Result Comment: Perf ormed at: WB Performed By: #### P T, PTT #### [facility] [address] [address] [address] Nilton Mccall Age Gdln ACOG Testing 30-65 Normal [facility] Comment on above: Performed By: #### P T, PTT #### [facility] [address] [place], [place] [address] Dr. Nilton Mccall DIAGNOSIS: Comment Normal [facility] Comment on above: Result Comment: NEGA TIVE FOR INTRAEPITHELIAL LESION OR MALIGNANCY. Performed at: WB Performed By: #### P T, PTT #### [facility] [address] [place], [place] [address] Dr. Nilton Mccall HPV Aptima Negative Normal Negative [facility] Comment on above: Result Comment: This nucleic acid amplification test detects fourteen high-risk HPV types (16,18,31,33,35,39,45,51,52,56,58,59,66,68) without differentiation. Performed at: =G Performed By: #### P T, PTT #### [facility] [address] [place] [address] Dr. Nilton Mccall Methodology: Comment Normal [facility] Comment on above: Result Comment: This liquid based ThinPrep(R) pap test was screened with the use of an image guided system. Performed at: WB Performed By: #### P T, PTT #### [facility] [address] [place] [address] Dr. Nilton Mccall Note: Comment Normal [facility] Comment on above: Result Comment: The Pap [...] Performed By: #### P T, PTT #### [facility] [address] [place] [address] Dr. Nilton Mccall Performed by: Comment Normal [facility] Comment on above: Result Comment: Jay Ellison, Substation Operator (ASCP) Performed at: WB Performed By: #### P T, PTT #### [facility] [address] [place] [address] Dr. Nilton Mccall Specimen adequacy: Comment Normal [facility] Comment on above: Result Comment: Sati sfactory for evaluation. No endocervical component is identified. Performed at: WB Performed By: #### P T, PTT #### [facility] [address] [place] [address] Dr. Nilton Mccall C3 [facility] 07-25-2021 Complement C3 [Mass/Vol] 165 mg/dL Normal 86-166 [facility] Comment on above: Order Comment: Speci men Type: BLOOD SPECIMEN Ordering Facility: [facility] Address: [address] [place] [id number] Performed By: #### 4 485-9, 4498-2 #### [facility] CLIA [id number] [address] [place] [address] [place] C4 SerPl-mCncon 07-25-2021 Complement C4 [Mass/Vol] 32 mg/dL Normal 13-46 [facility] Comment on above: Order Comment: Speci men Type: BLOOD SPECIMEN Ordering Facility: [facility] Address: [address] [place] [address] Performed By: #### 4 485-9, 4498-2 #### [facility] CLIA [id number] [address] [place] [address] [place] TRYPTASE BLOODon 07-25-2021 Tryptase [Mass/Vol] 3.4 ug/L Normal <8.4 [facility] Comment on above: Order Comment: Speci men Type: BLOOD SPECIMEN Ordering Facility: [facility] Address: [address] [place] [address] Performed By: #### T RYPT #### [facility] CLIA [id number] [address] [place] [address] [place] ACTH Don 07-18-2021 Corticotropin (P) [Mass/Vol] 15.5 pg/mL 7.2 - 63.3 pg/mL [facility] CORTISOL Don 07-18-2021 Cortisol [Mass/Vol] 9.9 ug/dL 4.8 - 19 .5 ug/dL [facility] Alpha tocopherol [Mass/Vol]o n 07-07-2021 Beta+gamma tocopherol [Mass/Vol] 3.0 mg/L 0.3 - 3.2 mg/L [facility] VITAMIN E/TOCOPHEROLon 07-07 Alpha tocopherol [Mass/Vol] 13.1 mg/L 6.0 - 23.0 mg/L [facility] ACTH Don 07-02-2021 Corticotropin (P) [Mass/Vol] 15.1 pg/mL 7.2 - 63.3 pg/mL [facility] CERULOPLASMIN BLDon 07-02-19 Ceruloplasmin [Mass/Vol] 23 mg/dL 16 - 45 mg/dL [facility] CK CREATINE KINASEon 022 CK [Catalytic activity/Vol] 51 U/L 42 - 196 U/L [facility] CORTISOL [facility] 07-01-2021 Cortisol [Mass/Vol] 7.4 ug/dL 4.8 - 19 .5 ug/dL [facility] DHEA-S [facility] 07-01-2021 DHEA-S [Mass/Vol] 35.9 ug/dL Low 60.9 - 337.0 ug/dL [facility] FERRITIN [facility] 07-01-2021 Ferritin [Mass/Vol] 98.2 ng/mL 14.7 - 205.1 ng/mL [facility] BNPon 06-24-2021 Natriuretic peptide B (Bld) [Mass/Vol] 15.0 pg/mL Normal <=450.0 [facility] Comment on above: Performed By: #### C BC #### [facility] [address] [place] [address] Dr. Nilton Mccall CARDIAC CHAYO 3-6on 2 CK [Catalytic activity/Vol] 60 U/L Normal 26-192 [facility] Comment on above: Performed By: #### C MREP #### [facility] [address] [place] [address] Dr. Nilton Mccall CK.MB [Mass/Vol] 0.33 ng/mL Normal <=3.60 [facility] Comment on above: Performed By: #### C MREP #### [facility] [address] [place] [address] Dr. Nilton Mccall HSTROP 4.7 pg/mL Normal 4.0-51.3 [facility] Comment on above: Result Comment: CUT- OFF POINTS HAVE BEEN ESTABLISHED BASED ON THE FOURTH UNIVERSAL DEFINITIONS OF MYOCARDIAL INFARCTION. THE UPPER REFERENCE LIMIT (URL) OF TROPONIN, DEFINED THE 99TH PERCENTILE OF cTnI DISTRIBUTION IN A REFERENCE POPULATION, HAS BEEN CONFIRMED THE DECISION THRESHOLD FOR [place] DIAGNOSIS. Performed By: #### C MREP #### [facility] [address] [place] [address] Dr. Nilton Mccall CARDIAC CHAYO ADMITon 022 CK [Catalytic activity/Vol] 71 U/L Normal 26-192 [facility] Comment on above: Performed By: #### C BC #### [facility] [address] [place] [address] Dr. Nilton Mccall CK.MB [Mass/Vol] 0.50 ng/mL Normal <=3.60 [facility] [facility] Comment on above: Performed By: #### C BC #### [facility] [address] [place] [address] Dr. Nilton Mccall HSTROP 3.8 pg/mL Critically low 4.0-51.3 [facility] Comment on above: Result Comment: CUT- OFF POINTS HAVE BEEN ESTABLISHED BASED ON THE FOURTH UNIVERSAL DEFINITIONS OF MYOCARDIAL INFARCTION. THE UPPER REFERENCE LIMIT (URL) OF TROPONIN, DEFINED THE 99TH PERCENTILE OF cTnI DISTRIBUTION IN A REFERENCE POPULATION, HAS BEEN CONFIRMED THE DECISION THRESHOLD FOR [place] DIAGNOSIS. Performed By: #### C BC #### [facility] [address] [place] [address] Dr. Nilton Mccall PILI 25 ng/mL Normal 9-82 [facility] Comment on above: Performed By: #### C BC #### [facility] [address] [place] [address] Dr. Nilton Mccall CBC AUTO DIFFon 06-24-2021 BASO # 0.1 103/ul Normal 0.0-0.1 [facility] Comment on above: Performed By: #### C MP #### [facility] [address] [place] [address] Dr. Nilton Mccall Basophils/100 WBC (Bld) 0.6 % Normal 0.2-2.0 [facility] Comment on above: Performed By: #### C MP #### [facility] [address] [place] [address] Dr. Nilton Mccall EO # 0.2 103/ul Normal 0.0-0.7 [facility] Comment on above: Performed By: #### C MP #### [facility] [address] [place] [address] Dr. Nilton Mccall Eosinophils/100 WBC (Bld) 2.2 % Normal 0.9-7.0 [facility] Comment on above: Performed By: #### C MP #### [facility] [address] [place] [address] Dr. Nilton Mccall Erythrocyte distribution width (RBC) [Ratio] 11.8 % Normal 11.0-15.0 [facility] Comment on above: Performed By: #### C MP #### [facility] [address] [place] [address] Dr. Nilton Mccall Hematocrit (Bld) [Volume fraction] 43.4 % Normal 36.0-48.0 [facility] Comment on above: Performed By: #### C MP #### [facility] [address] [place] [address] Dr. Nilton Mccall Hemoglobin (Bld) [Mass/Vol] 14.8 g/dL Normal 12.0-16.0 [facility] Comment on above: Performed By: #### C MP #### [facility] [address] [place] [address] Dr. Nilton Mccall IG # 0.04 10e3/ul Critically high 0.00-0.03 [facility] Comment on above: Performed By: #### C MP #### [facility] [address] [place] [address] Dr. Nilton Mccall IG % 0.4 % Normal 0.0-0.5 [facility] Comment on above: Performed By: #### C MP #### [facility] [address] [place] [address] Dr. Nilton Mccall LYMPH # 2.0 103/ul Normal 1.2-3.8 [facility] Comment on above: Performed By: #### C MP #### [facility] [address] [place] [address] Dr. Nilton Mccall Lymphocytes/100 WBC (Bld) 21.5 % Normal 20.5-60.0 [facility] Comment on above: Performed By: #### C MP #### [facility] [address] [place] [address] Dr. Nilton Mccall MANUAL DIFF REQ NO Normal [facility] Comment on above: Performed By: #### C MP #### [facility] [address] [place] [address] Dr. Nilton Mccall MCH (RBC) [Entitic mass] 29.4 pg Normal 26.7-34.0 [facility] Comment on above: Performed By: #### C MP #### [facility] [address] [place] [address] Dr. Nilton Mccall MCHC (RBC) [Mass/Vol] 34.1 g/dL Normal 29.9-35.2 [facility] Comment on above: Performed By: #### C MP #### [facility] [address] [place] [address] Dr. Nilton Mccall MCV (RBC) [Entitic vol] 86.1 fL Normal 81.0-99.0 [facility] Comment on above: Performed By: #### C MP #### [facility] [address] [place] [address] Dr. Nilton Mccall MONO # 0.5 103/ul Normal 0.3-0.8 [facility] Comment on above: Performed By: #### C MP #### [facility] [address] [place] [address] Dr. Nilton Mccall Monocytes/100 WBC (Bld) 5.4 % Normal 1.7-12.0 [facility] Comment on above: Performed By: #### C MP #### [facility] [address] [place] [address] Dr. Nilton Mccall NEUT # 6.3 103/ul Normal 1.4-6.5 [facility] Comment on above: Performed By: #### C MP #### [facility] [address] [place] [address] Dr. Nilton Mccall Neutrophils/100 WBC (Bld) 69.9 % Normal 43.0-75.0 [facility] Comment on above: Performed By: #### C MP #### [facility] [address] [place] [address] Dr. Nilton Mccall Platelet mean volume (Bld) [Entitic vol] 9.6 fL Normal 9.5-13.5 [facility] Comment on above: Performed By: #### C MP #### [facility] [address] [address] [address] Nilton Mccall PLT 290 103/ul Normal 150-450 [facility] Comment on above: Performed By: #### C MP #### [facility] [address] [address] [address] Nilton Mccall RBC 5.04 106/ul Normal 4.20-5.40 [facility] Comment on above: Performed By: #### C MP #### [facility] [address] [address] [address] Nilton Mccall WBC 9.1 103/ul Normal 4.0-11.0 [facility] Comment on above: Performed By: #### C MP #### [facility] [address] [place] [address] STROKE HEAD WOon [...] MAREK EPSTEIN Date: 2021-06-24 20:56 Normal The [facility] CT STROKE HEAD WO NONCONTRAST CT [...] MAREK EPSTEIN Date: 2021-06-24 19:15 Normal [facility] Covid-19 PCR (CVDTBH)on 06-06 SARS-CoV-2 (COVID-19) RNA CHRISTI+probe Ql (Unsp spec) Not detected Normal NOT DETECTED [facility] Comment on above: Result Comment: When [...] for this test is supported by the Director Of Orthopedics of Health and Human Service's declaration that [...] Performed By: #### P T, PTT #### [facility] [address] [place] [address] Dr. Nilton Mccall ER URINE PROFILEon 2 Bilirubin Ql (U) Negative Normal NEGATIVE [facility] Comment on above: Performed By: #### E RUR, PREGU #### [facility] [address] [place] [address] Dr. Nilton Mccall Clarity (U) CLEAR Normal CLEAR [facility] Comment on above: Performed By: #### E RUR, PREGU #### [facility] [address] [place] [address] Dr. Nilton Mccall Color (U) YELLOW Normal YELLOW [facility] Comment on above: Performed By: #### E RUR, PREGU #### [facility] [address] [place] [address] Dr. Nilton Mccall ERUAHD A micrscopic examina tion will be performed if indicated. Normal [facility] Comment on above: Performed By: #### E RUR, PREGU #### [facility] [address] [place] [address] Dr. Nilton Mccall Glucose Ql (U) Negative Normal NEGATIVE [facility] Comment on above: Performed By: #### E RUR, PREGU #### [facility] [address] [place] [address] Dr. Nilton Mccall Hemoglobin Ql (U) Negative Normal NEGATIVE [facility] Comment on above: Performed By: #### E RUR, PREGU #### [facility] [address] [place] [address] Dr. Nilton Mccall Ketones Ql (U) Negative Normal NEGATIVE [facility] Comment on above: Performed By: #### E RUR, PREGU #### [facility] [address] [place] [address] Dr. Nilton Mccall LEUKOCYTES Negative Normal NEGATIVE [facility] Comment on above: Performed By: #### E RUR, PREGU #### [facility] [address] [place] [address] Dr. Nilton Mccall Nitrite Ql (U) Negative Normal NEGATIVE [facility] Comment on above: Performed By: #### E RUR, PREGU #### [facility] [address] [place] [address] Dr. Nilton Mccall pH (U) 6.0 [pH] Normal 5-9 [facility] Comment on above: Performed By: #### E RUR, PREGU #### [facility] [address] [place] [address] Dr. Nilton Mccall SPEC GRAVITY 1.015 Normal 1.005-<=1. 025 [facility] Comment on above: Performed By: #### E RUR, PREGU #### [facility] [address] [place] [address] Dr. Nilton Mccall UA PROTEIN Negative Normal NEGATIVE/ TRACE [facility] Comment on above: Performed By: #### E RUR, PREGU #### [facility] [address] [place] [address] Dr. Nilton Mccall UR MICRO IND NOT INDICATED Normal [facility] Comment on above: Performed By: #### E RUR, PREGU #### [facility] [address] [place] [address] Dr. Nilton Mccall Urobilinogen Qn (U) 0.2 {Zarina'U}/dL Normal 0.2 - 1. 0 [facility] Comment on above: Performed By: #### E RUR, PREGU #### [facility] [address] [place] [address] Dr. Nilton Mccall LACTATE/LACTIC ACIDon 2021 Lactate [Moles/Vol] 1.0 mmol/L Normal 0.4-1.9 [facility] Comment on above: Performed By: #### P T, PTT #### [facility] [address] [place] [address] Dr. Nilton Mccall LIPASEon 06-24-2021 Lipase [Catalytic activity/Vol] 103.0 U/L Normal 73.0-393.0 [facility] Comment on above: Performed By: #### C BC #### [facility] [address] [place] [address] Dr. Nilton Mccall PH VENOUS BLOODon 06-24-2021 PCO2 VENOUS 29.4 mmHg Critically low 40.0-52.0 [facility] Comment on above: Performed By: #### P T, PTT #### [facility] [address] [place] [address] Dr. Nilton Mccall pH VENOUS 7.478 Critically high 7.330-7.43 0 [facility] Comment on above: Performed By: #### P T, PTT #### [facility] [address] [place] [address] Dr. Nilton Mccall POINT OF CARE GLUCOSEon 06-06 Glucose [Mass/Vol] 107 mg/dL Critically high 74-106 [facility] Comment on above: Performed By: #### C MP #### [facility] [address] [place] [address] Dr. Nilton Mccall URon 06-24-2021 , QUAL Negative Normal NEGATIVE [facility] Comment on above: Performed By: #### E RUR, PREGU #### [facility] [address] [place] [address] Dr. Nilton Mccall PROTIMEon 06-24-2021 INR Coag (PPP) [Relative time] 0.99 {INR} Normal [facility] Comment on above: Performed By: #### P T, PTT #### [facility] [address] [place] [address] Dr. Nilton Mccall INR GUIDELINES SEE BELOW Normal [facility] Comment on above: Result Comment: JOSS RED INR: 2.0 - 3.0 CONDITIONS NOT LISTED BELOW 2.5 - 3.5 FOR PROSTHETIC HEART VALVE REPLACEMENT 2.5 - 3.5 RECURRENT THROMBOSIS Performed By: #### P T, PTT #### [facility] [address] [place] [address] Dr. Nilton Mccall PT Coag (PPP) [Time] 10.7 s Normal 9.0-11.6 [facility] Comment on above: Performed By: #### P T, PTT #### [facility] [address] [place] [address] Dr. Nilton Mccall PTTon 06-24-2021 aPTT Coag (Bld) [Time] 32.5 s Normal 22.3-36.2 [facility] Comment on above: Performed By: #### P T, PTT #### [facility] [address] [place] [address] Dr. Nilton Mccall TSHon 06-24-2021 TSH 0.655 uIU/mL Normal 0.358-3.74 0 [facility] Comment on above: Performed By: #### C BC #### [facility] [address] [place] [address] Dr. Nilton Mccall TSH RANGE SEE BELOW Normal [facility] Comment on above: Result Comment: <0.3 4 UIU/ml HYPERTHYROID 0.34-5.60 UIU/ml EUTHYROID >5.60 UIU/ml HYPOTHYROID Performed By: #### C BC #### [facility] [address] [place] [address] Dr. Nilton Mccall XR CHEST 1 Von [...] BELÉN DC Date: 2021-06-24 19:14 Normal [facility] Basic Metabolic Panelon 06-05 Anion gap [Moles/Vol] 11 mmol/L 9 - 17 mmol/L [facility] [employer] Calcium [Mass/Vol] 9.3 mg/dL 8.6 - 10. 4 mg/dL [facility] [employer] Chloride [Moles/Vol] 102 mmol/L 98 - 10 7 mmol/L [facility] [employer] CO2 [Moles/Vol] 23 mmol/L 20 - 31 mmol/L [facility] [employer] Creatinine [Mass/Vol] 0.78 mg/dL 0.50 - 0.90 mg/dL [facility] [employer] GFR >60 >60 mL/min [facility] GFR Non- >60 >60 mL/min [facility] [employer] Glucose [Mass/Vol] 160 mg/dL High 70 - 99 mg/dL [facility] Interpretation and review of laboratory results Abnormal [facility] Potassium [Moles/Vol] 3.7 mmol/L 3.7 - 5.3 mmol/L [facility] Sodium [Moles/Vol] 136 mmol/L 135 - 144 mmol/L [facility] Urea nitrogen (BldV) [Mass/Vol] 12 mg/dL 6 - 20 mg/dL [facility] Urea nitrogen/Creatinine (Bld) [Mass ratio] 15 [facility] CBC with Auto Differentialon 06-21-2021 Absolute Eos # 0.21 [facility] th Absolute Immature Granulocyte 0.03 [facility] Absolute Lymph # 2.43 [facility] Absolute [place] # 0.43 [facility] Basophils (Bld) [#/Vol] 0.05 10*3/uL [facility] Basophils/100 WBC (Bld) 1 % 0 - 2 % [facility] Eosinophils/100 WBC (Bld) 3 % 1 - 4 % [facility] Hematocrit (Bld) [Volume fraction] 41.8 % 36.3 - 47.1 % [facility] Hemoglobin.gastroint estinal spec 1 Ql (Stl) 14.0 g/dL 11.9 - 15.1 g/dL [facility] Immature granulocytes/100 WBC (Bld) 0 % 0 [facility] Interpretation and review of laboratory results Abnormal [facility] Lymphocytes/100 WBC (Bld) 29 % 24 - 43 % [facility] MCH (RBC) [Entitic mass] 29.2 pg 25.2 - 33.5 pg [facility] MCHC (RBC) [Mass/Vol] 33.5 g/dL 28.4 - 34.8 g/dL [facility] MCV (RBC) [Entitic vol] 87.1 fL 82.6 - 102.9 fL [facility] Monocytes/100 WBC (Bld) 5 % 3 - 12 % [facility] NRBC Automated 0.0 0.0 per 100 WBC [facility] Platelet distribution width (Bld) [Ratio] 11.5 % Low 11.8 - 14.4 % [facility] Platelet mean volume (Bld) [Entitic vol] 9.6 fL 8.1 - 13.5 fL [facility] Platelets (Bld) [#/Vol] 264 10*3/uL [facility] RBC (Bld) [#/Vol] 4.80 10*6/uL 3.95 - 5.11 m/uL [facility] Segmented neutrophils/100 WBC (Bld) 62 % 36 - 65 % [facility] Segs Absolute 5.12 [facility] WBC (Bld) [#/Vol] 8.3 10*3/uL [facility] Laboratory - Chemistry and C hemistry - challengeon 06-21-2021 GFR/1.73 sq M.predicted MDRD (S/P/Bld) [Vol rate/Area] [facility] Comment on above: Average GFR for 30-3 9 years old: 107 mL/min/1.73sq m Chronic Kidney Disease: <60 mL/min/1.73sq m Kidney failure: <15 mL/min/1.73sq m eGFR calculated using average adult body mass. Additional eGFR calculator available at: http://www.[employer]/multiple_crcl_2012.htm Stage 1: Some kidney damage normal GFR Stage 2: Mild kidney damage GFR 60-89 Stage 3: Moderate kidney damage GFR 30-59 Stage 4: Severe kidney damage GFR 15-29 Stage 5: Severe kidney damage GFR <15 ESRD - chronic treatment by dialysis or transplant Magnesiumon 06-21-2021 Magnesium [Mass/Vol] 1.8 mg/dL 1.6 - 2 .6 mg/dL [facility] TSHon 06-21-2021 TSH Qn 1.33 m[IU]/L [facility] Troponinon 06-21-2021 Troponin, High Sensitivity <6 0 - 14 ng/L [facility] Comment on above: High Sensitivity Troponin values cannot be compared with other Troponin methodologies. Patients with high levels of Biotin oral intake (i.e >5mg/day) may have falsely decreased Troponin levels. Samples collected within 8 hours of biotin intake may require additional information for diagnosis. [facility] XR CHEST PORTABLEon 06-22-19 No acute cardiopulmo nary disease. PN RIS CONSOLIDATED EXAMINATION: ONE XRAY VIEW [...] bone finding. IMPRESSION: No acute cardiopulmonary disease. [employer] Work Phone: Radiology Study observation (narrative) [employer] Phone: XR CHEST PORTABLEOrdered By: Armando Stern on 06-21-2021 [facility] Work Phone: [facility] 06-16-2021 [facility] HNO ID: [id number] Author: Jolanta Jordan RT(R) Service: ? Author Type: Technologist Type: Allied [...] DATE: June 16, 2021 TIME: 11:05 AM [facility] MRI BRAIN WO/W IVCONon 06-16 MRI BRAIN WO/W IVCON * * *Final Report* * * DATE OF EXAM: Jun 16 2021 11:27AM [facility] 0295 - MRI BRAIN WO/W IVCON / [...] of the brain with and without contrast. Quality Measurement Specialist: PSCB [employer] Date/Time: Jun 16 2021 11:31A Dictated by : ANNA BOLAND MD This examination was interpreted and the report reviewed and electronically signed by: ANNA BOLAND MD on Jun 16 2021 11:53AM EST [id number] Normal [facility] ACTH [facility] 06-14-2021 Corticotropin (P) [Mass/Vol] 11.6 pg/mL 7.2 - 63.3 pg/mL [facility] Basic Metabolic Panel w/ Ref douglas to [facility] 05-20-2021 Anion gap [Moles/Vol] 11 mmol/L 9 - 17 mmol/L [facility] Calcium [Mass/Vol] 9.1 mg/dL 8.6 - 10. 4 mg/dL [facility] Chloride [Moles/Vol] 103 mmol/L 98 - 10 7 mmol/L [facility] CO2 [Moles/Vol] 23 mmol/L 20 - 31 mmol/L [facility] Creatinine [Mass/Vol] 0.74 mg/dL 0.50 - 0.90 mg/dL [facility] GFR >60 >60 mL/min [facility] GFR Non- >60 >60 mL/min [facility] Glucose [Mass/Vol] 101 mg/dL High 70 - 99 mg/dL [facility] Interpretation and review of laboratory results Abnormal [employer] Potassium [Moles/Vol] 3.7 mmol/L 3.7 - 5.3 mmol/L [facility] Sodium [Moles/Vol] 137 mmol/L 135 - 144 mmol/L [facility] Urea nitrogen (BldV) [Mass/Vol] 9 mg/dL 6 - 20 mg/dL [facility] Urea nitrogen/Creatinine (Bld) [Mass ratio] 12 [facility] Brain Natriuretic Peptideon 05-20-2021 Natriuretic peptide B (Bld) [Mass/Vol] 173 pg/mL <300 [facility] Comment on above: An age-independent cutoff point of 300 pg/ml has a 98% negative predictive value excluding acute heart failure. C-Reactive Proteinon 022 CRP [Mass/Vol] mg/L 0.0 - 5.0 mg/L [facility] CBC with Auto Differentialon 05-20-2021 Absolute Eos # 0.18 [facility] th Absolute Immature Granulocyte 0.03 [facility] Absolute Lymph # 1.75 [facility] alth Absolute [place] # 0.29 [facility] lt Basophils (Bld) [#/Vol] 0.03 10*3/uL [facility] Basophils/100 WBC (Bld) 0 % 0 - 2 % [facility] Eosinophils/100 WBC (Bld) 3 % 1 - 4 % [facility] Hematocrit (Bld) [Volume fraction] 43.8 % 36.3 - 47.1 % [facility] Hemoglobin.gastroint estinal spec 1 Ql (Stl) 14.6 g/dL 11.9 - 15.1 g/dL [facility] Immature granulocytes/100 WBC (Bld) 0 % 0 [facility] Interpretation and review of laboratory results Abnormal [facility] Lymphocytes/100 WBC (Bld) 25 % 24 - 43 % [facility] MCH (RBC) [Entitic mass] 29.0 pg 25.2 - 33.5 pg [facility] MCHC (RBC) [Mass/Vol] 33.3 g/dL 28.4 - 34.8 g/dL [facility] MCV (RBC) [Entitic vol] 86.9 fL 82.6 - 102.9 fL [facility] Monocytes/100 WBC (Bld) 4 % 3 - 12 % [facility] NRBC Automated 0.0 0.0 per 100 WBC [facility] Platelet distribution width (Bld) [Ratio] 11.5 % Low 11.8 - 14.4 % [facility] Platelet mean volume (Bld) [Entitic vol] 9.5 fL 8.1 - 13.5 fL [facility] Platelets (Bld) [#/Vol] 242 10*3/uL [facility] RBC (Bld) [#/Vol] 5.04 10*6/uL 3.95 - 5.11 m/uL [facility] Segmented neutrophils/100 WBC (Bld) 68 % High 36 - 65 % [facility] Segs Absolute 4.67 [facility] WBC (Bld) [#/Vol] 7.0 10*3/uL [facility] CT ABDOMEN PELVIS WO CONTRAS T Additional Contrast? Noneon 05-20-2021 1. No acute abdomina l or pelvic findings. 2. There is diastasis of the rectus abdominus fascia in the midline lower abdomen measuring up to 3 cm. A loop of colon is seen to protrude into the small defect without evidence of incarceration. 3. Hepatic steatosis [facility] RIS CONSOLIDATED EXAMINATION: CT OF [...] incarceration or obstruction. No suspicious osseous lesions. [facility] RIS CONSOLIDATED Critchley, Jesus P - 05/20/2021 EXAMINATION: CT OF THE [...] without evidence of incarceration. 3. Hepatic steatosis [employer] Phone: Radiology Study observation (narrative) [employer] Phone: CT ABDOMEN PELVIS WO CONTRAS T Additional Contrast? NoneOrdered By: Jesus Unger on 05-20-2021 [employer] Phone: D-Dimer, Quantitativeon 05-06 D-Dimer, Quant 0.34 [facility] Comment on above: When combined [...] more prevalent in patients with distal DVT. [facility] Drug screen multi urineon Amphetamine Screen, Ur Negative NEGATIVE [facility] Barbiturate Screen, Ur Negative NEGATIVE [facility] Benzodiazepine Screen, Urine Negative NEGATIVE [facility] Buprenorphine Urine Negative NEGATIVE [facility] Cannabinoid Scrn, Ur Negative NEGATIVE [employer] Cocaine Metabolite, Urine Negative NEGATIVE [facility] Methadone Screen, Urine Negative NEGATIVE [facility] Methamphetamine, Urine Negative NEGATIVE [facility] Opiates, Urine Negative NEGATIVE [facility] Oxycodone Screen, Ur Negative NEGATIVE [employer] Phencyclidine, Urine Negative NEGATIVE [employer] Propoxyphene, Urine Negative NEGATIVE [facility] Tricyclic Antidepressants, Urine Negative NEGATIVE [facility] Comment on above: Drug screen results are to be used for medical purposes only. All positive results are unconfirmed. Testing for employment or legal uses should be sent to a reference laboratory for confirmation. [facility] EKG 12 LeadOrdered By: Gosia quinn on 05-20-2021 Atrial Rate 51 BPM [facility] Work Phone: P Bushnell 56 degrees [facility] Work Phone: P-R Interval 152 ms [facility] Work Phone: Q-T Interval 448 ms [facility] Work Phone: QRS Duration 90 ms [facility] Work Phone: QTc Calculation (Bazett) 412 ms [facility] Work Phone: R Bushnell 79 degrees [facility] Work Phone: T Bushnell 62 degrees [employer] Phone: Ventricular Rate 51 BPM [employer] Work Phone: [facility] Work Phone: EKG 12 Leadon 05-20-2021 Sinus bradycardia wi th sinus arrhythmia T wave abnormality, consider anterior ischemia Abnormal ECG When compared with ECG of 16-APR-2021 20:11, No significant change was found Confirmed by Gosia Rangel MD ([id number]) on 05/20/2021 6:51:52 PM [facility] RADIOLOGY Gosia Rangel MD - 05/20/2021 Sinus bradycardia with sinus arrhythmia T wave abnormality, consider anterior ischemia Abnormal ECG When compared with ECG of 16-APR-2021 20:11, No significant change was found Confirmed by Gosia Rangel MD ([id number]) on 05/20/2021 6:51:52 PM [facility] Work Phone: Laboratory - Chemistry and C hemistry - challengeon 05-20-2021 GFR/1.73 sq M.predicted MDRD (S/P/Bld) [Vol rate/Area] [facility] Comment on above: Average GFR for 30-3 9 years old: 107 mL/min/1.73sq m Chronic Kidney Disease: <60 mL/min/1.73sq m Kidney failure: <15 mL/min/1.73sq m eGFR calculated using average adult body mass. Additional eGFR calculator available at: http://www.LonoCloud/multiple_crcl_2012.htm Stage 1: Some kidney damage normal GFR Stage 2: Mild kidney damage GFR 60-89 Stage 3: Moderate kidney damage GFR 30-59 Stage 4: Severe kidney damage GFR 15-29 Stage 5: Severe kidney damage GFR <15 ESRD - chronic treatment by dialysis or transplant Lactic Acidon 05-20-2021 Lactate [Moles/Vol] 0.9 mmol/L 0.5 - 2. 2 mmol/L [facility] Lipaseon 05-20-2021 Lipase [Catalytic activity/Vol] 46 U/L 13 - 60 U/L [facility] Microscopic Urinalysison - [facility] Bacteria, UA TRACE Abnormal None [facility] Epithelial Cells UA 0 TO 2 [facility] Interpretation and review of laboratory results Abnormal [facility] RBC, UA None [facility] WBC, UA None [facility] No Panel Informationon 05-20 [facility] Sedimentation Rateon 022 Sed Rate 9 [facility] TSH with Reflexon 05-20-2021 TSH Qn 1.20 m[IU]/L [facility] Troponinon 05-20-2021 Troponin, High Sensitivity <6 0 - 14 ng/L [facility] [place] Comment on above: High Sensitivity Troponin values cannot be compared with other Troponin methodologies. Patients with high levels of Biotin oral intake (i.e >5mg/day) may have falsely decreased Troponin levels. Samples collected within 8 hours of biotin intake may require additional information for diagnosis. [facility] Troponin, High Sensitivity <6 0 - 14 ng/L [facility] [place] Comment on above: High Sensitivity Troponin values cannot be compared with other Troponin methodologies. Patients with high levels of Biotin oral intake (i.e >5mg/day) may have falsely decreased Troponin levels. Samples collected within 8 hours of biotin intake may require additional information for diagnosis. Urinalysis with Reflex to Cu ltureon 05-20-2021 Bilirubin U[facility] NE[facility]IVE [facility], UA Yellow Yellow [facility] Glucose, Ur Negative NEGATIVE [facility] Interpretation and review of laboratory results Abnormal [facility] Ketones Ql (U) Negative NEGATIVE [facility] Leukocyte esterase Test strip Ql (U) Negative NEGATIVE [facility] Nitrite, Urine Negative NEGATIVE [facility] pH, UA 6.0 [facility] Protein, UA Negative NEGATIVE [facility] Specific [place], UA <1.005 Low [facility] Turbidity UA Clear Clear [facility] Urine Hgb Negative NEGATIVE [facility] Urobilinogen, Urine Normal Normal [email or web address] XR CHEST PORTABLEon 05-21-19 No abnormalities not ed. [facility] RIS CONSOLIDATED EXAMINATION: ONE XRAY VIEW OF THE CHEST 05/20/2021 1:33 pm COMPARISON: 04/16/2021 HISTORY: ORDERING SYSTEM PROVIDED HISTORY: chest pain TECHNOLOGIST PROVIDED HISTORY: chest pain FINDINGS: The lungs appear clear. The heart and mediastinal structures are unremarkable. Bony thorax appears normal. Visualized upper abdomen is unremarkable. [facility] RIS CONSOLIDATED Yoel Shabazz MD - 05/20/2021 EXAMINATION: ONE XRAY VIEW OF THE CHEST 05/20/2021 1:33 pm COMPARISON: 04/16/2021 HISTORY: ORDERING SYSTEM PROVIDED HISTORY: chest pain TECHNOLOGIST PROVIDED HISTORY: chest pain FINDINGS: The lungs appear clear. The heart and mediastinal structures are unremarkable. Bony thorax appears normal. Visualized upper abdomen is unremarkable. IMPRESSION: No abnormalities noted. [facility] Work Phone: Radiology Study observation (narrative) [facility] Work Phone: XR CHEST PORTABLEOrdered By: Yoel Shabazz on 05-20-2021 [facility] Work Phone: Basic Metabolic Panel w/ Ref douglas to MGon 04-16-2021 Anion gap [Moles/Vol] 11 mmol/L 9 - 17 mmol/L [facility] Calcium [Mass/Vol] 9.8 mg/dL 8.6 - 10. 4 mg/dL [facility] Chloride [Moles/Vol] 99 mmol/L 98 - 10 7 mmol/L [facility] CO2 [Moles/Vol] 24 mmol/L 20 - 31 mmol/L [facility] Creatinine [Mass/Vol] 0.85 mg/dL 0.50 - 0.90 mg/dL [facility] GFR >60 >60 mL/min [employer] GFR Non- >60 >60 mL/min [facility] Glucose [Mass/Vol] 97 mg/dL 70 - 99 mg/dL [facility] Interpretation and review of laboratory results Abnormal [facility] Potassium [Moles/Vol] 3.8 mmol/L 3.7 - 5.3 mmol/L [facility] Sodium [Moles/Vol] 134 mmol/L Low 135 - 144 mmol/L [facility] Urea nitrogen (BldV) [Mass/Vol] 9 mg/dL 6 - 20 mg/dL [facility] [place] Urea nitrogen/Creatinine (Bld) [Mass ratio] 11 [facility] C-Reactive Proteinon 022 CRP [Mass/Vol] mg/L 0.0 - 5.0 mg/L [facility] CBC with Auto Differentialon 04-16-2021 Absolute Eos # 0.19 [facility] th Absolute Immature Granulocyte 0.03 [facility] Absolute Lymph # 2.01 [facility] alth Absolute [place] # 0.47 [facility] lth Basophils (Bld) [#/Vol] 0.05 10*3/uL [facility] Basophils/100 WBC (Bld) 1 % 0 - 2 % [facility] Eosinophils/100 WBC (Bld) 2 % 1 - 4 % [facility] Hematocrit (Bld) [Volume fraction] 44.1 % 36.3 - 47.1 % [facility] Hemoglobin.gastroint estinal spec 1 Ql (Stl) 14.9 g/dL 11.9 - 15.1 g/dL [facility] Immature granulocytes/100 WBC (Bld) 0 % 0 [facility] Interpretation and review of laboratory results Abnormal [facility] Lymphocytes/100 WBC (Bld) 22 % Low 24 - 43 % [facility] MCH (RBC) [Entitic mass] 29.2 pg 25.2 - 33.5 pg [facility] MCHC (RBC) [Mass/Vol] 33.8 g/dL 28.4 - 34.8 g/dL [facility] MCV (RBC) [Entitic vol] 86.5 fL 82.6 - 102.9 fL [facility] Monocytes/100 WBC (Bld) 5 % 3 - 12 % [facility] NRBC Automated 0.0 0.0 per 100 WBC [facility] Platelet distribution width (Bld) [Ratio] 11.4 % Low 11.8 - 14.4 % [facility] Platelet mean volume (Bld) [Entitic vol] 9.5 fL 8.1 - 13.5 fL [facility] Platelets (Bld) [#/Vol] 265 10*3/uL [facility] RBC (Bld) [#/Vol] 5.10 10*6/uL 3.95 - 5.11 m/uL [facility] Segmented neutrophils/100 WBC (Bld) 70 % High 36 - 65 % [facility] Segs Absolute 6.34 [facility] h WBC (Bld) [#/Vol] 9.1 10*3/uL [facility] CT ABDOMEN PELVIS WO CONTRAS T Additional [...] lumbosacral facets and at the sacroiliac joints. [facility] RIS [facility] Michael Frausto - 04/16 EXAMINATION: CT OF [...] the liver. Previous cholecystectomy without biliary dilatation. [employer] Phone: Radiology Study observation (narrative) [employer] Phone: CT ABDOMEN PELVIS WO CONTRAS T Additional Contrast? NoneOrdered By: Michael Frausto on 04-16-2021 [employer] Phone: D-Dimer, Quantitativeon 04-05 D-Dimer, Quant 0.37 [facility] Comment on above: When combined [...] more prevalent in patients with distal DVT. [facility] Hepatic Function Panelon Albumin [Mass/Vol] 4.7 g/dL 3.5 - 5.2 g/dL [facility] Albumin/Globulin [Mass ratio] 1.8 {ratio} [facility] ALP (Bld) [Catalytic activity/Vol] 73 U/L 35 - 104 U/L [facility] ALT [Catalytic activity/Vol] 24 U/L 5 - 33 U/L [facility] AST [Catalytic activity/Vol] 14 U/L <32 [facility] Bilirubin [Mass/Vol] 0.35 mg/dL 0.3 - 1 .2 mg/dL [facility] Bilirubin, Indirect Can not be calculated 0.00 - 1.00 mg/dL [facility] Bilirubin.indirect [Mass/Vol] mg/dL <0.31 mg/dL [facility] Free PSA/Total PSA [Mass fraction] 7.3 g/dL 6.4 - 8.3 g/dL [facility] Laboratory - Chemistry and C hemistry - challengeon 04-16-2021 GFR/1.73 sq M.predicted MDRD (S/P/Bld) [Vol rate/Area] [facility] Comment on above: Average GFR for 30-3 9 years old: 107 mL/min/1.73sq m Chronic Kidney Disease: <60 mL/min/1.73sq m Kidney failure: <15 mL/min/1.73sq m eGFR calculated using average adult body mass. Additional eGFR calculator available at: http://www.LonoCloud/multiple_crcl_2012.htm Stage 1: Some kidney damage normal GFR Stage 2: Mild kidney damage GFR 60-89 Stage 3: Moderate kidney damage GFR 30-59 Stage 4: Severe kidney damage GFR 15-29 Stage 5: Severe kidney damage GFR <15 ESRD - chronic treatment by dialysis or transplant Lipaseon 04-16-2021 Lipase [Catalytic activity/Vol] 29 U/L 13 - 60 U/L [facility] Microscopic Urinalysison - [facility] Bacteria, UA 2+ Abnormal None [facility] Epithelial Cells UA 2 TO 5 [facility] Interpretation and review of laboratory results Abnormal [facility] RBC, UA 0 TO 2 [facility] WBC, UA 2 TO 5 [facility] No Panel Informationon 04-16 [facility] , Urineon Beta HCG ( test) Ql (U) Negative NEGATIVE [facility] Comment on above: Specimens with hCG l evels near the threshold of the test (25 mIU/mL) may give a negative or indeterminate result. In such cases, another test should be performed with a new specimen in 48-72 hours. If early is suspected clinically in this setting, correlation with quantitative serum b-hCG level is suggested. [facility] has confirmed the use of plasma for this test. This has not been cleared or approved by the U.S. Food and Drug Administration. The FDA has determined that such clearance is not necessary. [employer] Sedimentation Rateon 022 Sed Rate 13 mm 0 - 20 mm [facility] Troponinon 04-16-2021 Troponin, High Sensitivity <6 0 - 14 ng/L [facility] Comment on above: High Sensitivity Troponin values cannot be compared with other Troponin methodologies. Patients with high levels of Biotin oral intake (i.e >5mg/day) may have falsely decreased Troponin levels. Samples collected within 8 hours of biotin intake may require additional information for diagnosis. [facility] Urinalysis with Reflex to Cu ltureon 04-16-2021 Bilirubin Urine Negative NEGATIVE [facility] Color, UA Yellow Yellow [facility] Glucose, Ur Negative NEGATIVE [facility] Interpretation and review of laboratory results Abnormal [facility] Ketones Ql (U) Negative NEGATIVE [facility] Leukocyte esterase Test strip Ql (U) TRACE Abnormal NEGATIVE [facility] Nitrite, Urine Negative NEGATIVE [facility] pH, UA 6.0 [facility] Protein, UA Negative NEGATIVE [facility] Specific [place], UA 1.015 [facility] Turbidity UA Clear Clear [facility] Urine Hgb Negative NEGATIVE [facility] Urobilinogen, Urine Normal Normal [facility] XR CHEST 1 VIEWon 04-16-2021 Clear lungs. No acut e cardiopulmonary abnormality. [facility] RIS CONSOLIDATED EXAMINATION: ONE XRAY VIEW OF [...] normal limits. No significant thoracic osseous abnormality. [facility] RIS Christy Champion MD - 04/16/2021 EXAMINATION: ONE XRAY VIEW [...] IMPRESSION: Clear lungs. No acute cardiopulmonary abnormality. [employer] Phone: Radiology Study observation (narrative) [employer] Phone: XR CHEST 1 VIEWOrdered By: Arsenio Becerra on 04-16-2021 [employer] Phone: PULMONARY FUNCTION (450)on 0 03-07-2021 PULMONARY FUNCTION (450) [place] [address] PULMONARY FUNCTION PATIENT NAME: LEANA TRAN : 1985 MED REC NO: [id number] ROOM: ACCOUNT NO: [id number] ADMIT DATE: 03/07/2021 PROVIDER: Moris Alvarado DATE [...] 79% of predicted. MORIS ALVARADO [id number] Doc#: [id number] CC: Normal [facility] [id number] 03-07-2021 SARS-CoV-2 (COVID-19) RNA CHRISTI+probe Ql (Unsp spec) Not detected Normal NOTDET [facility] Comment on above: Result Comment: Rapid [...] management decisions. Fact sheet for Healthcare Providers: https://www.fda.gov/media/306479/download Fact sheet for Patients: https://www.fda.gov/media/378385/download Methodology: Isothermal Nucleic Acid Amplification Performed By: #### C OVRB #### [facility] [address] [place] [address] Quality Control Specialist: Belén Dale MD Basic Metabolic Panel w/ Ref douglas to MGOrdered By: Araseli Barrett on 11-01-2020 Anion gap [Moles/Vol] 19 mmol/L High 9 - 17 mmol/L [employer] Phone: Calcium [Mass/Vol] 9.4 mg/dL 8.6 - 10. 4 mg/dL [employer] Phone: Chloride [Moles/Vol] 94 mmol/L Low 98 - 10 7 mmol/L [employer] Phone: CO2 [Moles/Vol] 20 mmol/L 20 - 31 mmol/L [employer] Phone: Creatinine [Mass/Vol] 1.2 mg/dL High 0.50 - 0.90 mg/dL [employer] Phone: GFR >60 >60 mL/min [employer] Phone: GFR Non- 51 mL/min Low >60 [employer] Phone: Glucose [Mass/Vol] 217 mg/dL High 70 - 99 mg/dL [employer] Phone: Interpretation and review of laboratory results Abnormal [employer] Phone: Potassium [Moles/Vol] 3.5 mmol/L Low 3.7 - 5.3 mmol/L [employer] Phone: Sodium [Moles/Vol] 133 mmol/L Low 135 - 144 mmol/L [employer] Phone: Urea nitrogen (BldV) [Mass/Vol] 10 mg/dL 6 - 20 mg/dL [employer] Phone: Urea nitrogen/Creatinine (Bld) [Mass ratio] 8 Low [employer] Phone: [employer] Phone: CBC Auto DifferentialOrdered By: Araseli Barrett on 11-01-2020 Absolute Eos # <0.03 [employer] Work Phone: Absolute Immature Granulocyte 0.33 High [facility] Phone: Absolute Lymph # 0.80 Low [facility] Work Phone: Absolute [place] # 0.42 [facility] Work Phone: Basophils (Bld) [#/Vol] 10*3/uL [facility] Work Phone: Basophils/100 WBC (Bld) 0 % 0 - 2 % [facility] Work Phone: Differential Type NOT REPORTED [facility] Work Phone: Eosinophils/100 WBC (Bld) 0 % Low 1 - 4 % [facility] Work Phone: Hematocrit (Bld) [Volume fraction] 42.8 % 36.3 - 47.1 % [facility] Work Phone: Hemoglobin.gastroint estinal spec 1 Ql (Stl) 14.7 g/dL 11.9 - 15.1 g/dL [facility] Work Phone: Immature granulocytes/100 WBC (Bld) 4 % High 0 [facility] Work Phone: Interpretation and review of laboratory results Abnormal [employer] Phone: Lymphocytes/100 WBC (Bld) 9 % Low 24 - 43 % [facility] Work Phone: MCH (RBC) [Entitic mass] 30.1 pg 25.2 - 33.5 pg [facility] Work Phone: MCHC (RBC) [Mass/Vol] 34.3 g/dL 28.4 - 34.8 g/dL [employer] Phone: MCV (RBC) [Entitic vol] 87.5 fL 82.6 - 102.9 fL [employer] Phone: Monocytes/100 WBC (Bld) 5 % 3 - 12 % [facility] Work Phone: NRBC Automated 0.0 0.0 per 100 WBC [employer] Phone: Platelet distribution width (Bld) [Ratio] 11.4 % Low 11.8 - 14.4 % [employer] Phone: Platelet Estimate NOT REPORTED [employer] Phone: Platelet mean volume (Bld) [Entitic vol] 9.4 fL 8.1 - 13.5 fL [employer] Phone: Platelets (Bld) [#/Vol] 207 10*3/uL [employer] Phone: RBC (Bld) [#/Vol] 4.89 10*6/uL 3.95 - 5.11 m/uL [employer] Phone: RBC (Bld) [#/Vol] NOT REPORTED [employer] Phone: Segmented neutrophils/100 WBC (Bld) 82 % High 36 - 65 % [employer] Phone: Segs Absolute 7.82 [employer] Work Phone: WBC (Bld) [#/Vol] 9.4 10*3/uL [employer] Phone: WBC (Bld) [#/Vol] NOT REPORTED [employer] Phone: [employer] Phone: D-Dimer, QuantitativeOrdered By: Araseli Barrett on 11-01-2020 D-Dimer, Quant <0.27 [employer] Work Phone: Comment on above: When combined [...] more prevalent in patients with distal DVT. [employer] Phone: Laboratory - Chemistry and C hemistry - challengeOrdered By: Araseli Barrett on 11-01-2020 GFR/1.73 sq M.predicted MDRD (S/P/Bld) [Vol rate/Area] [employer] Phone: Comment on above: Average GFR for 30-3 9 years old: 107 mL/min/1.73sq m Chronic Kidney Disease: <60 mL/min/1.73sq m Kidney failure: <15 mL/min/1.73sq m eGFR calculated using average adult body mass. Additional eGFR calculator available at: http://www.LonoCloud/multiple_crcl_2012.htm Stage 1: Some kidney damage normal GFR Stage 2: Mild kidney damage GFR 60-89 Stage 3: Moderate kidney damage GFR 30-59 Stage 4: Severe kidney damage GFR 15-29 Stage 5: Severe kidney damage GFR <15 ESRD - chronic treatment by dialysis or transplant MagnesiumOrdered By: Araseli Barrett on 11-01-2020 Magnesium [Mass/Vol] 1.6 mg/dL 1.6 - 2 .6 mg/dL [employer] Phone: [employer] Phone: TroponinOrdered By: Araseli Barrett on 11-01-2020 Troponin Interp NOT REPORTED [facility] Work Phone: Troponin T NOT REPORTED <0.03 ng/mL [employer] Phone: Troponin, High Sensitivity <6 0 - 14 ng/L [employer] Phone: Comment on above: High Sensitivity Troponin values cannot be compared with other Troponin methodologies. Patients with high levels of Biotin oral intake (i.e >5mg/day) may have falsely decreased Troponin levels. Samples collected within 8 hours of biotin intake may require additional information for diagnosis. [employer] Phone: XR CHEST PORTABLEOrdered By: Araseli Barrett on 11-01-2020 Negative chest. [employer] Work Phone: EXAMINATION: ONE XRA Y VIEW OF THE CHEST 11/01/2020 2:31 pm COMPARISON: 12/08/2014 HISTORY: ORDERING SYSTEM PROVIDED HISTORY: cough FINDINGS: The lungs are without acute focal process. No effusion or pneumothorax. The cardiomediastinal silhouette is normal. The osseous structures are intact without acute process. [employer] Phone: Oswaldo, Mhpn Incoming R adiant Results From [facility] - 11/01/2020 2:41 PM EDT EXAMINATION: ONE XRAY VIEW OF THE CHEST 11/01/2020 2:31 pm COMPARISON: 12/08/2014 HISTORY: ORDERING SYSTEM PROVIDED HISTORY: cough FINDINGS: The lungs are without acute focal process. No effusion or pneumothorax. The cardiomediastinal silhouette is normal. The osseous structures are intact without acute process. IMPRESSION: Negative chest. Alitalia Work Phone: [employer] Phone: [employer] 09-15-2020 MACY Telephone (NEADFV) LEANA TRAN ([id number]) 1985 F Date Time Provider Department 09/15/20 LIS MORAESFV During your visit today, we recorded the following information about you: Demi Hazel Pss 09/15/2020 4:44 PM Signed Received MRI Brain report by fax from [facility]. Scanned to patient's chart. Savanna Juarez [...] Encounter Status:Closed by DEMI JOHNSON on 11/17/20 [facility] CNOVon 09-06-2020 OV Office Visit (NEADFV ) LEANA TRAN ([id number]) 1985 F Date Time Provider Department 09/06/20 2:00 PM LIS MORAES NEADFV During your visit today, we recorded the following information about you: Temperature Pulse Blood pressure Weight 97.8 degrees 67/minute 112/73 102.1 kg Height 1.626 m Lis Moraes MD 09/06/2020 3:10 PM Signed PROGRESS NOTE- HEADACHE SERVICE DATE: September 06, 2020 Location: [facility] Participants: patient and provider Requesting [...] Contrast [Con (more content not included)... Normal [facility] Vital Signs Date Time Vital Sign Value Performing Clinician Facility 11-22-2023 09:01-0400 Body mass index (BMI) [Ratio] 38.42 kg/m2 Akila Yao MD Work Phone: [facility] 11-22-2023 09:01-0400 Body weight 101.52 kg Akila Yao MD Work Phone: [facility] 11-22-2023 09:01-0400 Diastolic blood pressure 84 mm[Hg] Akila Yao MD Work Phone: [facility] 11-22-2023 09:01-0400 Heart rate 59 /min Akila Yao MD Work Phone: [facility] [employer] [facility] 11-22-2023 09:01-0400 Systolic blood pressure 124 mm[Hg] Akila Yao MD Work Phone: [facility] [employer] [facility] 11-20-2023 11:40-0400 Body mass index (BMI) [Ratio] 38.11 kg/m2 Rubens Glenroy DO Work Phone: [facility] 11-20-2023 11:40-0400 Body weight 100.7 kg Rubens Glenroy DO Work Phone: [facility] 11-20-2023 11:40-0400 Diastolic blood pressure 80 mm[Hg] Rubens Glenroy DO Work Phone: [facility] 11-20-2023 11:40-0400 Systolic blood pressure 120 mm[Hg] Rubens Tim DO Work Phone: [facility] 11-07-2023 10:33-0400 Body height 162.6 cm Christy Painting MD Work Phone: [facility] 11-07-2023 10:33-0400 Body mass index (BMI) [Ratio] 37.93 kg/m2 Christy Painting MD Work Phone: [facility] 11-07-2023 10:33-0400 Body weight 100.25 kg Christy Painting MD Work Phone: [facility] 10-02-2023 14:46-0400 Blood Pressure Location Selma Orzech [facility] 10-02-2023 14:46-0400 Body temperature 98.6 [degF] Selma Orzech [facility] 10-02-2023 14:46-0400 Diastolic blood pressure 84 mm[Hg] Selma Orzech [facility] 10-02-2023 14:46-0400 Heart rate 68 /min Selma Orzech [facility] 10-02-2023 14:46-0400 Respiratory rate 16 /min Selma Orzech [facility] 10-02-2023 14:46-0400 Systolic blood pressure 130 mm[Hg] Selma Orzech [facility] 10-01-2023 09:45-0400 Body height 162.6 cm Fuentes Amaral MD Work Phone: [facility] 10-01-2023 09:45-0400 Body mass index (BMI) [Ratio] 37.82 kg/m2 Fuentes Amaral MD Work Phone: [facility] 10-01-2023 09:45-0400 Body temperature 97 [degF] Fuentes Amaral MD Work Phone: [facility] 10-01-2023 09:45-0400 Body weight 100 kg Fuentes Amaral MD Work Phone: [facility] 10-01-2023 09:45-0400 Diastolic blood pressure 84 mm[Hg] Fuentes Amaral MD Work Phone: [facility] 10-01-2023 09:45-0400 Heart rate 71 /min Fuentes Amaral MD Work Phone: [facility] 10-01-2023 09:45-0400 Respiratory rate 16 /min Fuentes Amaral MD Work Phone: [facility] 10-01-2023 09:45-0400 SaO2% (BldA) [Mass fraction] 99 % Fuentes Amaral MD Work Phone: [facility] 10-01-2023 09:45-0400 Systolic blood pressure 123 mm[Hg] Fuentes Amaral MD Work Phone: [facility] 05-08-2023 08:47-0400 Body mass index (BMI) [Ratio] 36.9 kg/m2 Sarah Best APRN-TREE TRIMMER Work Phone: [facility] 05-08-2023 08:47-0400 Body weight 97.52 kg Sarah Best APRN-TREE TRIMMER Work Phone: [facility] 05-08-2023 08:47-0400 Diastolic blood pressure 87 mm[Hg] Sarah Best APRN-TREE TRIMMER Work Phone: [facility] 05-08-2023 08:47-0400 Heart rate 63 /min Sarah Best APRN-TREE TRIMMER Work Phone: [facility] 05-08-2023 08:47-0400 Systolic blood pressure 134 mm[Hg] Sarah Best GAS COMBUSTION ENGINEER-TREE TRIMMER Work Phone: [facility] 10-02-2022 09:29-0400 Body height 162.6 cm Fuentes Amaral MD Work Phone: [facility] 10-02-2022 09:29-0400 Body temperature 97.7 [degF] Fuentes Amaral MD Work Phone: [facility] 10-02-2022 09:29-0400 Body weight 100.15 kg Fuentes Amaral MD Work Phone: [facility] 10-02-2022 09:29-0400 Diastolic blood pressure 79 mm[Hg] Fuentes Amaral MD Work Phone: [facility] 10-02-2022 09:29-0400 Heart rate 58 /min Fuentes Amaral MD Work Phone: [facility] 10-02-2022 09:29-0400 Respiratory rate 16 /min Fuentes Amaral MD Work Phone: [facility] 10-02-2022 09:29-0400 SaO2% (BldA) [Mass fraction] 99 % Fuentes Amaral MD Work Phone: [facility] 10-02-2022 09:29-0400 Systolic blood pressure 140 mm[Hg] Fuentes Amaral MD Work Phone: [facility] 09-05-2022 08:23-0400 Blood Pressure Location LORAINE BURNHAM [facility] 09-05-2022 08:23-0400 Diastolic blood pressure 79 mm[Hg] LORAINE BURNHAM [facility] 09-05-2022 08:23-0400 Heart rate 60 /min LORAINE BURNHAM [facility] 09-05-2022 08:23-0400 Systolic blood pressure 133 mm[Hg] LORAINE BURNHAM [facility] 04-03-2022 10:39-0500 Body height 162.6 cm Fuentes Amaral MD Work Phone: [facility] 04-03-2022 10:39-0500 Body temperature 97.9 [degF] Fuentes Amaral MD Work Phone: [facility] 04-03-2022 10:39-0500 Body weight 99.34 kg Fuentes Amaral MD Work Phone: [facility] 04-03-2022 10:39-0500 Diastolic blood pressure 65 mm[Hg] Fuentes Amaral MD Work Phone: [facility] 04-03-2022 10:39-0500 Heart rate 74 /min Fuentes Amaral MD Work Phone: [facility] 04-03-2022 10:39-0500 Respiratory rate 16 /min Fuentes Amaral MD Work Phone: [facility] 04-03-2022 10:39-0500 SaO2% (BldA) [Mass fraction] 98 % Fuentes Amaral MD Work Phone: [facility] 04-03-2022 10:39-0500 Systolic blood pressure 147 mm[Hg] Fuentes Amaral MD Work Phone: [facility] 02-28-2022 08:30-0500 Blood Pressure Location LORAINE BURNHAM [facility] 02-28-2022 08:30-0500 Diastolic blood pressure 83 mm[Hg] LORAINE BURNHAM [facility] 02-28-2022 08:30-0500 Heart rate 74 /min LORAINE BURNHAM [facility] 02-28-2022 08:30-0500 Respiratory rate 16 /min LORAINE BURNHAM [facility] 02-28-2022 08:30-0500 Systolic blood pressure 121 mm[Hg] LORAINE BURNHAM [facility] 02-10-2022 14:07-0500 Body height 162.6 cm Fuentes Amaral MD Work Phone: [facility] 02-10-2022 14:07-0500 Body temperature 97.9 [degF] Fuentes Amaral MD Work Phone: [facility] 02-10-2022 14:07-0500 Body weight 98.25 kg Fuentes Amaral MD Work Phone: [facility] 02-10-2022 14:07-0500 Diastolic blood pressure 59 mm[Hg] Fuentes Amaral MD Work Phone: [facility] 02-10-2022 14:07-0500 Heart rate 97 /min Fuentes Amaral MD Work Phone: [facility] 02-10-2022 14:07-0500 Respiratory rate 16 /min Fuentes Amaral MD Work Phone: [facility] 02-10-2022 14:07-0500 SaO2% (BldA) [Mass fraction] 99 % Fuentes Amaral MD Work Phone: [facility] 02-10-2022 14:07-0500 Systolic blood pressure 124 mm[Hg] Fuentes Amaral MD Work Phone: [facility] 2021 08:48-0500 Blood Pressure Location LORAINE BURNHAM [facility] 2021 08:48-0500 Diastolic blood pressure 77 mm[Hg] LORAINE BURNHAM [facility] 2021 08:48-0500 Heart rate 81 /min LORAINE BURNHAM [facility] 2021 08:48-0500 Systolic blood pressure 118 mm[Hg] LORAINE BURNHAM [facility] 11-18-2021 13:44-0400 Body height 162.6 cm Fuentes Amaral MD Work Phone: [facility] 11-18-2021 13:44-0400 Body temperature 97.81 [degF] Fuentes Amaral MD Work Phone: [facility] 11-18-2021 13:44-0400 Body weight 101.24 kg Fuentes Amaral MD Work Phone: [facility] 11-18-2021 13:44-0400 Diastolic blood pressure 73 mm[Hg] Fuentes Amaral MD Work Phone: [facility] 11-18-2021 13:44-0400 Heart rate 66 /min Fuentes Amaral MD Work Phone: [facility] 11-18-2021 13:44-0400 Respiratory rate 16 /min Fuentes Amaral MD Work Phone: [facility] 11-18-2021 13:44-0400 SaO2% (BldA) [Mass fraction] 100 % Fuentes Amaral MD Work Phone: [facility] 11-18-2021 13:44-0400 Systolic blood pressure 121 mm[Hg] Fuentes Amaral MD Work Phone: [facility] 11-03-2021 10:37-0400 Body height 162.6 cm Fuentes Amaral MD Work Phone: [facility] 11-03-2021 10:37-0400 Body temperature 97.59 [degF] Fuentes Amaral MD Work Phone: [facility] 11-03-2021 10:37-0400 Body weight 99.97 kg Fuentes Amaral MD Work Phone: [facility] 11-03-2021 10:37-0400 Diastolic blood pressure 63 mm[Hg] Fuentes Amaral MD Work Phone: [facility] 11-03-2021 10:37-0400 Heart rate 59 /min Fuentes Amaral MD Work Phone: [facility] 11-03-2021 10:37-0400 Respiratory rate 16 /min Fuentes Amaral MD Work Phone: [facility] 11-03-2021 10:37-0400 SaO2% (BldA) [Mass fraction] 99 % Fuentes Amaral MD Work Phone: [facility] 11-03-2021 10:37-0400 Systolic blood pressure 120 mm[Hg] Fuentes Amaral MD Work Phone: [facility] 09-27-2021 08:00-0400 Body height 162.6 cm Pulm Isaban Work Phone: [facility] 09-27-2021 08:00-0400 Body weight 99.79 kg Pulm Isaban Work Phone: [facility] 09-21-2021 15:37-0400 Body height 160 cm Ruth Villaseñor MD Work Phone: [facility] 09-21-2021 15:37-0400 Body temperature 97.5 [degF] Ruth Villaseñor MD Work Phone: [facility] 09-21-2021 15:37-0400 Body weight 100.61 kg uRth Villaseñor MD Work Phone: [facility] 09-21-2021 15:37-0400 Diastolic blood pressure 72 mm[Hg] Ruth Villaseñor MD Work Phone: [facility] 09-21-2021 15:37-0400 Heart rate 72 /min Ruth Villaseñor MD Work Phone: [facility] 09-21-2021 15:37-0400 SaO2% (BldA) [Mass fraction] 97 % Ruth Villaseñor MD Work Phone: [facility] 09-21-2021 15:37-0400 Systolic blood pressure 131 mm[Hg] Ruth Villaseñor MD Work Phone: [facility] 09-19-2021 13:59-0400 Body temperature 98.29 [degF] Landen Mahmood GAS COMBUSTION ENGINEER.TREE TRIMMER Work Phone: [facility] 09-19-2021 13:59-0400 Body weight 99.79 kg Landen Mahmood GAS COMBUSTION ENGINEER.TREE TRIMMER Work Phone: [facility] 09-19-2021 13:59-0400 Diastolic blood pressure 53 mm[Hg] Landen Mahmood GAS COMBUSTION ENGINEER.TREE TRIMMER Work Phone: [facility] 09-19-2021 13:59-0400 Heart rate 70 /min Landen Mahmood GAS COMBUSTION ENGINEER.TREE TRIMMER Work Phone: [facility] 09-19-2021 13:59-0400 Respiratory rate 18 /min Landen Mahmood GAS COMBUSTION ENGINEER.TREE TRIMMER Work Phone: [facility] 09-19-2021 13:59-0400 SaO2% (BldA) [Mass fraction] 98 % Landen Mahmood GAS COMBUSTION ENGINEER.TREE TRIMMER Work Phone: [facility] 09-19-2021 13:59-0400 Systolic blood pressure 128 mm[Hg] Landen Mahmood GAS COMBUSTION ENGINEER.TREE TRIMMER Work Phone: [facility] 09-05-2021 15:55-0400 Diastolic blood pressure 50 mm[Hg] Christine Abraham DO Work Phone: [facility] 09-05-2021 15:55-0400 Heart rate 103 /min Christine Abraham DO Work Phone: [facility] [employer] 09-05-2021 15:55-0400 Respiratory rate 28 /min Christine Abraham DO Work Phone: [facility] [employer] 09-05-2021 15:55-0400 SaO2% (BldA) [Mass fraction] 96 % Christine Abraham DO Work Phone: [facility] 09-05-2021 15:55-0400 Systolic blood pressure 115 mm[Hg] Christine Abraham DO Work Phone: [facility] 09-05-2021 13:29-0400 Body height 162.6 cm Christine Abraham DO Work Phone: [facility] 09-05-2021 13:29-0400 Body mass index (BMI) [Ratio] 37.25 kg/m2 Christine Abraham DO Work Phone: [facility] 09-05-2021 13:29-0400 Body temperature 98.2 [degF] Christine Abraham DO Work Phone: [facility] 09-05-2021 13:29-0400 Body weight 98.43 kg Christine Abraham DO Work Phone: [facility] 08-15-2021 08:54-0400 Body height 162.6 cm Berlin Avila III, MD Work Phone: [facility] 08-15-2021 08:54-0400 Body weight 98.84 kg Berlin Avila III, MD Work Phone: [facility] 08-12-2021 10:00-0400 Body height 162.6 cm Cocoa Press Operator Work Phone: [facility] 08-12-2021 10:00-0400 Body weight 98 kg Cocoa Press Operator Work Phone: [facility] 08-12-2021 10:00-0400 Diastolic blood pressure 72 mm[Hg] Cocoa Press Operator Work Phone: [facility] 08-12-2021 10:00-0400 Heart rate 79 /min Cocoa Press Operator Work Phone: [facility] 08-12-2021 10:00-0400 Systolic blood pressure 108 mm[Hg] Cocoa Press Operator Work Phone: [facility] 07-25-2021 09:30-0400 Body height 162.6 cm Henny Rushing MD Work Phone: [facility] 07-25-2021 09:30-0400 Body temperature 97.2 [degF] Henny Rushing MD Work Phone: [facility] 07-25-2021 09:30-0400 Body weight 97.48 kg Henny Rushing MD Work Phone: [facility] 07-25-2021 09:30-0400 Diastolic blood pressure 62 mm[Hg] Henny Rushing MD Work Phone: [facility] 07-25-2021 09:30-0400 Heart rate 83 /min Henny Rushing MD Work Phone: [facility] 07-25-2021 09:30-0400 Respiratory rate 14 /min Henny Rushing MD Work Phone: [facility] 07-25-2021 09:30-0400 SaO2% (BldA) [Mass fraction] 99 % Henny Rushing MD Work Phone: [facility] 07-25-2021 09:30-0400 Systolic blood pressure 104 mm[Hg] Henny Rushing MD Work Phone: [facility] 07-22-2021 14:12-0400 Body height 162.6 cm Yan Bass MD Work Phone: [facility] 07-22-2021 14:12-0400 Body temperature 97.5 [degF] Yan Bass MD Work Phone: [facility] 07-22-2021 14:12-0400 Body weight 97.98 kg Yan Bass MD Work Phone: [facility] 07-22-2021 14:12-0400 Diastolic blood pressure 79 mm[Hg] Yan Bass MD Work Phone: [facility] 07-22-2021 14:12-0400 Heart rate 71 /min Yan Bass MD Work Phone: [facility] 07-22-2021 14:12-0400 Respiratory rate 16 /min Yan Bass MD Work Phone: [facility] 07-22-2021 14:12-0400 SaO2% (BldA) [Mass fraction] 97 % Yan Bass MD Work Phone: [facility] 07-22-2021 14:12-0400 Systolic blood pressure 129 mm[Hg] Yan Bass MD Work Phone: [facility] 07-21-2021 13:36-0400 Respiratory rate 20 /min Sai Perez MD Work Phone: [facility] 07-21-2021 13:36-0400 SaO2% (BldA) [Mass fraction] 100 % Sai Perez MD Work Phone: [facility] 07-21-2021 13:29-0400 Diastolic blood pressure 67 mm[Hg] Sai Perez MD Work Phone: [facility] 07-21-2021 13:29-0400 Heart rate 62 /min Sai Perez MD Work Phone: [facility] 07-21-2021 13:29-0400 Systolic blood pressure 130 mm[Hg] Sai Perez MD Work Phone: [facility] 07-14-2021 10:40-0400 Diastolic blood pressure 75 mm[Hg] Aldo Ann MD Work Phone: [facility] 07-14-2021 10:40-0400 Heart rate 74 /min Aldo Ann MD Work Phone: [facility] 07-14-2021 10:40-0400 SaO2% (BldA) [Mass fraction] 98 % Aldo Ann MD Work Phone: [facility] 07-14-2021 10:40-0400 Systolic blood pressure 128 mm[Hg] Aldo Ann MD Work Phone: [facility] 07-06-2021 12:39-0400 Body height 162.6 cm Tracee Mcintyre MD Work Phone: [facility] 07-06-2021 12:39-0400 Body weight 97.52 kg Tracee Mcintyre MD Work Phone: [facility] 07-06-2021 12:39-0400 Diastolic blood pressure 68 mm[Hg] Tracee Mcintyre MD Work Phone: [facility] 07-06-2021 12:39-0400 Heart rate 61 /min Tracee Mcintyre MD Work Phone: [facility] 07-06-2021 12:39-0400 Respiratory rate 16 /min Tracee Mcintyre MD Work Phone: [facility] 07-06-2021 12:39-0400 SaO2% (BldA) [Mass fraction] 99 % Tracee Mcintyre MD Work Phone: [facility] 07-06-2021 12:39-0400 Systolic blood pressure 111 mm[Hg] Tracee Mcintyre MD Work Phone: [facility] 07-01-2021 10:02-0400 Body height 162.6 cm Yan Bass MD Work Phone: [facility] 07-01-2021 10:02-0400 Body temperature 97.59 [degF] Yan Bass MD Work Phone: [facility] 07-01-2021 10:02-0400 Body weight 97.98 kg Yan Bass MD Work Phone: [facility] 07-01-2021 10:02-0400 Diastolic blood pressure 97 mm[Hg] Yan Bass MD Work Phone: [facility] 07-01-2021 10:02-0400 Heart rate 87 /min Yan Bass MD Work Phone: [facility] 07-01-2021 10:02-0400 Respiratory rate 16 /min Yan Bass MD Work Phone: [facility] 07-01-2021 10:02-0400 SaO2% (BldA) [Mass fraction] 99 % Yan Bass MD Work Phone: [facility] 07-01-2021 10:02-0400 Systolic blood pressure 138 mm[Hg] Yan Bass MD Work Phone: [facility] 06-27-2021 11:45-0400 Diastolic blood pressure 70 mm[Hg] Peter Knight APRN.TREE TRIMMER Work Phone: [facility] 06-27-2021 11:45-0400 Heart rate 96 /min Peter Knight APRN.TREE TRIMMER Work Phone: [facility] 06-27-2021 11:45-0400 Respiratory rate 20 /min Peter Knight APRN.TREE TRIMMER Work Phone: [facility] 06-27-2021 11:45-0400 SaO2% (BldA) [Mass fraction] 99 % Peter Knight APRN.TREE TRIMMER Work Phone: [facility] 06-27-2021 11:45-0400 Systolic blood pressure 147 mm[Hg] Peter Knight APRN.TREE TRIMMER Work Phone: [facility] 06-27-2021 11:30-0400 Body temperature 98.1 [degF] Peter Knight APRN.TREE TRIMMER Work Phone: [facility] 06-27-2021 10:53-0400 Body height 162.6 cm Peter Knight APRN.TREE TRIMMER Work Phone: [facility] 06-27-2021 10:53-0400 Body weight 95.71 kg Peter Knight APRN.CNP Work Phone: [facility] 06-21-2021 01:00-0400 Diastolic blood pressure 84 mm[Hg] Sean Andes DO Work Phone: [facility] 06-21-2021 01:00-0400 Heart rate 87 /min Sean Andes DO Work Phone: [facility] 06-21-2021 01:00-0400 Respiratory rate 21 /min Sean Andes DO Work Phone: [facility] 06-21-2021 01:00-0400 SaO2% (BldA) [Mass fraction] 90 % Sean Andes DO Work Phone: [facility] 06-21-2021 01:00-0400 Systolic blood pressure 121 mm[Hg] Sean Andes DO Work Phone: [facility] 06-21-2021 00:04-0400 Body temperature 98.6 [degF] Sean Andes DO Work Phone: [facility] 06-14-2021 09:07-0400 Body height 162.6 cm Jackelyn Marques MD Work Phone: [facility] 06-14-2021 09:07-0400 Body weight 96.66 kg Jackelyn Marques MD Work Phone: [facility] 06-14-2021 09:07-0400 Diastolic blood pressure 80 mm[Hg] Jackelyn Marques MD Work Phone: [facility] 06-14-2021 09:07-0400 Heart rate 71 /min Jackelyn Marques MD Work Phone: [facility] 06-14-2021 09:07-0400 Systolic blood pressure 126 mm[Hg] Jackelyn Marques MD Work Phone: [facility] 06-10-2021 09:45-0400 Body height 162.6 cm Yan Bass MD Work Phone: [facility] 06-10-2021 09:45-0400 Body temperature 97.39 [degF] Yan Bass MD Work Phone: [facility] 06-10-2021 09:45-0400 Body weight 97.61 kg Yan Bass MD Work Phone: [facility] 06-10-2021 09:45-0400 Diastolic blood pressure 50 mm[Hg] Yan Bass MD Work Phone: [facility] 06-10-2021 09:45-0400 Heart rate 64 /min Yan Bass MD Work Phone: [facility] 06-10-2021 09:45-0400 Respiratory rate 16 /min Yan Bass MD Work Phone: [facility] 06-10-2021 09:45-0400 SaO2% (BldA) [Mass fraction] 100 % Yan Bass MD Work Phone: [facility] 06-10-2021 09:45-0400 Systolic blood pressure 124 mm[Hg] Yan Bass MD Work Phone: [facility] 06-04-2021 19:43-0400 Diastolic blood pressure 49 mm[Hg] Brian Santana MD Work Phone: [facility] 06-04-2021 19:43-0400 Heart rate 69 /min Brian Santana MD Work Phone: [facility] 06-04-2021 19:43-0400 Respiratory rate 23 /min Brian Santana MD Work Phone: [facility] 06-04-2021 19:43-0400 SaO2% (BldA) [Mass fraction] 92 % Brian Santana MD Work Phone: [facility] 06-04-2021 19:43-0400 Systolic blood pressure 106 mm[Hg] Brian Santana MD Work Phone: [facility] 06-04-2021 16:26-0400 Body mass index (BMI) [Ratio] 36.22 kg/m2 Brian Santana MD Work Phone: [facility] 06-04-2021 16:26-0400 Body temperature 98.4 [degF] Brian Santana MD Work Phone: [facility] 06-04-2021 16:26-0400 Body weight 95.71 kg Brian Santana MD Work Phone: [facility] 05-20-2021 18:43-0400 Diastolic blood pressure 51 mm[Hg] Cas Dowell MD Work Phone: [facility] 05-20-2021 18:43-0400 Heart rate 53 /min Cas Dowell MD Work Phone: [facility] 05-20-2021 18:43-0400 Respiratory rate 16 /min Cas Dowell MD Work Phone: [facility] 05-20-2021 18:43-0400 SaO2% (BldA) [Mass fraction] 96 % Cas Dowell MD Work Phone: [facility] 05-20-2021 18:43-0400 Systolic blood pressure 112 mm[Hg] Cas Dowell MD Work Phone: [facility] 05-20-2021 12:55-0400 Body height 162.6 cm Cas Dowell MD Work Phone: [facility] 05-20-2021 12:55-0400 Body mass index (BMI) [Ratio] 36.22 kg/m2 Cas Dowell MD Work Phone: [facility] 05-20-2021 12:55-0400 Body weight 95.71 kg Cas Dowell MD Work Phone: [facility] 04-16-2021 19:39-0500 Body temperature 97.39 [degF] Mike Stevenson MD [facility] 04-16-2021 19:39-0500 Diastolic blood pressure 89 mm[Hg] Mike Stevenson MD [facility] 04-16-2021 19:39-0500 Heart rate 55 /min Mike Stevenson MD [facility] 04-16-2021 19:39-0500 Respiratory rate 15 /min Mike Stevenson MD [facility] 04-16-2021 19:39-0500 SaO2% (BldA) [Mass fraction] 98 % Mike Stevenson MD [facility] 04-16-2021 19:39-0500 Systolic blood pressure 131 mm[Hg] Mike Stevenson MD [facility] 11-01-2020 17:24-0400 SaO2% (BldA) [Mass fraction] 94 % Araseli Barrett MD Work Phone: [facility] Work Phone: 11-01-2020 16:20-0400 Diastolic blood pressure 73 mm[Hg] Araseli Barrett MD Work Phone: [facility] Work Phone: 11-01-2020 16:20-0400 Systolic blood pressure 142 mm[Hg] Araseli Barrett MD Work Phone: [facility] Work Phone: 11-01-2020 15:48-0400 Body temperature 101.61 [degF] Araseli Barrett MD Work Phone: [facility] Work Phone: 11-01-2020 13:32-0400 Body mass index (BMI) [Ratio] 37.76 kg/m2 Araseli Barrett MD Work Phone: [facility] Work Phone: 11-01-2020 13:32-0400 Body weight 99.79 kg Araseli Barrett MD Work Phone: [facility] Work Phone: 11-01-2020 13:32-0400 Heart rate 91 /min Araseli Barrett MD Work Phone: [facility] Work Phone: 11-01-2020 13:32-0400 Respiratory rate 22 /min Araseli Barrett MD Work Phone: [facility] Work Phone: 06-13-2020 05:10-0400 Diastolic blood pressure 73 mm[Hg] Kody Cm MD Work Phone: [facility] Work Phone: 06-13-2020 05:10-0400 Systolic blood pressure 131 mm[Hg] Kody Cm MD Work Phone: [facility] Work Phone: 06-13-2020 05:09-0400 Body temperature 96.8 [degF] Kody Cm MD Work Phone: [facility] Work Phone: 06-13-2020 05:09-0400 Heart rate 74 /min Kody Cm MD Work Phone: [facility] Work Phone: 06-13-2020 05:09-0400 Respiratory rate 12 /min Kody Cm MD Work Phone: [facility] Work Phone: 06-13-2020 05:09-0400 SaO2% (BldA) [Mass fraction] 97 % Kody Cm MD Work Phone: [facility] Work Phone: Encounters Encounter Date Encounter Type Care Provider Facility Start: 11-22-2023 End: 11-22-2023 Office outpatient visit 15 minutes Akila Yao MD Work Phone: [facility] Comment on above: 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) Start: 11-22-2023 End: 11-22-2023 ambulatory AKILA YAO [facility] Start: 11-20-2023 End: 11-20-2023 Bamboo flowsheet Rubens Glenroy DO Work Phone: [facility] Start: 11-20-2023 End: 11-20-2023 Bamboo flowsheet Rubens Glenroy DO Work Phone: [facility] Start: 11-20-2023 End: 11-20-2023 Patient encounter procedure Rubens Lehmano DO Work Phone: [facility] Work Phone: Start: 11-20-2023 End: 11-20-2023 Periodic preventive med est patient 18-39 yrs Rubens Lehmano DO Work Phone: [facility] Comment on above: PCOS (polycystic ova amarilis syndrome) (Primary Dx); Well woman exam with routine gynecological exam; Hormone disorder Start: 11-20-2023 End: 11-20-2023 ambulatory RUBENS LEHMANO Not Available Start: 11-19-2023 ambulatory [facility] Start: 11-07-2023 End: 11-07-2023 Bamdariano flowshansa Painting MD Work Phone: [facility] Start: 11-07-2023 End: 11-07-2023 Bamboo flowsheet Christy Painting MD Work Phone: [facility] [...] Not Available Start: 11-06-2023 ambulatory STEPHON CRONIN [facility] Start: 10-29-2023 ambulatory Phillip Thomas MD Facility:[facility] Start: 10-15-2023 ambulatory [facility] Start: 10-10-2023 End: 10-10-2023 ambulatory MACRINA WADSWORTH [facility] Start: 10-10-2023 End: 10-10-2023 ambulatory CAS NADERER Not Available Start: 10-05-2023 ambulatory [facility] Start: 10-02-2023 End: 10-02-2023 ambulatory Selma X Дмитрий Facility:[facility] Start: 10-02-2023 End: 10-02-2023 Patient encounter procedure Selma Choe [facility] Start: 10-01-2023 End: 10-01-2023 Office outpatient visit 15 minutes Fuentes Amaral MD Work Phone: Hematology/Oncology Comment on above: 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HCC) (Primary Dx); POTS (postural orthostatic tachycardia syndrome) Start: 10-01-2023 End: 10-01-2023 ambulatory FUENTES AMARAL Facility:[facility] Start: 09-26-2023 End: 09-26-2023 ambulatory CAS BOLTONR Not Available Start: 09-19-2023 End: 09-19-2023 ambulatory RUBENS GLENROY Not Available Start: 09-05-2023 ambulatory [facility] Start: 08-22-2023 End: 08-22-2023 ambulatory RUBENS GLENROY Not Available Start: 07-30-2023 ambulatory STEPHON CRONIN [facility] Start: 07-10-2023 End: 07-10-2023 ambulatory JODI MAZARIEGOS Not Available Start: 07-05-2023 End: 07-05-2023 ambulatory [facility] Start: 05-08-2023 End: 05-08-2023 Office outpatient visit 15 minutes Sarah Best GAS COMBUSTION ENGINEER-TREE TRIMMER Work Phone: [facility] Comment on above: 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) Start: 05-08-2023 End: 05-08-2023 ambulatory SARAH BEST [facility] Start: 04-09-2023 End: 04-09-2023 ambulatory CAS RAHMANERER Not Available Start: 03-28-2023 End: 03-28-2023 ambulatory Phillip Thomas MD [facility] Start: 03-12-2023 Orders Only Cas Horner Work Phone: [facility] Comment on above: Moderate persistent asthma without complication (CMS/HCC) (Primary Dx) Start: 02-13-2023 End: 02-13-2023 ambulatory Tesfaye R MARLON Facility:[facility] Start: 02-04-2023 Refleonid BUSTOS RN-TREE TRIMMER [facility] Start: 01-31-2023 End: 01-31-2023 ambulatory Tesfaye R MARLON Facility:CD:[id number] Start: 01-24-2023 End: 01-24-2023 ambulatory Phillip Thomas MD Facility:[facility] Start: 01-16-2023 End: 01-16-2023 ambulatory CAS DOWELL Not Available Start: 01-10-2023 ambulatory MACRINA WADSWORTH [facility] Start: 01-04-2023 End: 01-04-2023 ambulatory CAS DOWELL Facility:[facility] Start: 01-01-2023 End: 01-01-2023 ambulatory ANGELIKA [facility] Start: 12-19-2022 ambulatory Selma Choe Facility: [facility] Start: 12-18-2022 End: 12-18-2022 Emergency department patient visit CAS DOWELL [facility] Start: 12-18-2022 [facility] Start: 11-29-2022 End: 11-29-2022 ambulatory Phillip Thomas MD Facility:[facility] Start: 10-02-2022 End: 10-02-2022 Office outpatient visit 15 minutes Fuentes Amaral MD Work Phone: Hematology/Oncology Comment on above: 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HCC) (Primary Dx); Bleeding disorder (HCC); Coagulopathy (HCC) Start: 09-05-2022 End: 09-05-2022 Patient encounter procedure LORAINE BURNHAM [facility] Start: 06-15-2022 End: 06-16-[address] CAS DOWELL Facility:[facility] Start: 06-05-2022 End: 06-06-[address] DOCTOR CONN Facility:[facility] Start: 05-03-2022 Telephone encounter Meena peter MD Work Phone: Neurology Comment on above: PAP Therapy Follow U p (DOWNLOAD) Start: 04-26-2022 End: 04-26-2022 ambulatory Bhargavi Mcclurelolita PA-C Work Phone: Neurology Comment on above: Migraine without aur a and without status migrainosus, not intractable (Primary Dx) Start: 04-26-2022 End: 04-26-2022 Telemedicine consultation with patient Bhargavi Fryamanda PA-C Work Phone: [facility] Start: 04-17-2022 End: 04-18-2022 [facility] Fuentes Amaral MD Work Phone: Hematology/Oncology [...] [facility] Start: 03-21-2022 Telephone encounter Manda León RN Hematology/Oncology Comment on above: Orders; Appointment Start: 03-16-2022 End: 03-17-2022 ambulatory FUENTES ABHYLAKE [facility] Start: 02-28-2022 End: 02-28-2022 Patient encounter procedure LORAINE BURNHAM [facility] Start: 02-27-2022 Patient Update Tesfaye Culverbunny [facility] Comment on above: Patient Update (Medi cation Refill Consent) Start: 02-24-2022 Telephone encounter Bhargavi donaldson PA-C Work Phone: Neurology Comment on above: Referral Request (PA for Caterinaovy) Start: 02-22-2022 ambulatory Fuentes almonte MD Work Phone: Hematology/Oncology Comment on above: Platelet electrophor esis lab Start: 02-17-2022 Telephone encounter Manda León RN Hematology/Oncology Comment on above: Orders; Question Start: 02-17-2022 End: 02-18-2022 ambulatory CAS DOWELL [facility] Start: 02-17-2022 End: 02-17-2022 Subsequent hospital visit by physician Cas Dowell MD Work Phone: [facility] Start: 02-16-2022 Telephone encounter Manda León RN Hematology/Oncology Comment on above: Orders Start: 02-15-2022 End: 03-15-2022 [facility] Start: 02-13-2022 End: 02-13-2022 Patient encounter procedure Meena Grissom MD Work Phone: Neurology Comment on above: No-show for appointm ent (Primary Dx) Start: 02-13-2022 End: 02-13-2022 Telemedicine consultation with patient Meena Grissom MD Work Phone: [facility] Start: 02-10-2022 End: 02-10-2022 Visit (SP) Office Fuentes Amaral MD Work Phone: Hematology/Oncology Comment on above: 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HCC) (Primary Dx); Bleeding disorder (HCC) Start: 02-01-2022 Telephone encounter [facility] Work Phone: Neurology Comment on above: Appointment (Downloa d Pap Therapy Follow Up-) Start: 01-30-2022 End: 01-30-2022 Emergency department patient visit CAS [facility] Start: 01-23-2022 End: 01-23-2022 Patient encounter procedure Marcell Olivia ROMEO [facility] Start: 01-16-2022 End: 01-16-2022 ambulatory Bhargavi Ramesh PA-C Work Phone: Neurology Comment on above: Migraine without aur a and without status migrainosus, not intractable (Primary Dx) Start: 01-16-2022 End: 01-16-2022 Telemedicine consultation with patient Bhargavi Ramesh PA-C Work Phone: [facility] Start: 01-08-2022 End: 01-11-2022 Evaluation and management of inpatient CHAYO CASILLAS [facility] Start: 01-07-2022 End: 01-07-2022 Emergency department patient visit CAS [facility] Start: 12-24-2021 End: 12-25-[address] BELÉN ANDRADE Facility:[facility] Start: 2021 End: 2021 Patient encounter procedure LORAINE BURNHAM [facility] Start: 12-20-2021 Telephone encounter Dayanna olvera [facility] Work Phone: [facility] Comment on above: Results Start: 12-17-2021 Encounter for genera l adult medical examination without abnormal findings DR CAS DOWELL [facility] Start: 12-15-2021 Chart abstracting [facility] Main [...] MD Work Phone: Neurology Comment on above: Db2 Dba - O ther (Download) KATELIN on CPAP [...] BELÉN ANDRADE Facility: Start: 11-10-2021 End: 11-11-2021 [facility] Fuentes Amaral MD Work Phone: Hematology/Oncology Comment [...] 10-24-2021 End: 10-24-2021 Telemedicine consultation with patient Henny Rushing MD Work Phone: [facility] Start: 10-20-2021 End: 10-20-2021 ambulatory Micheal Perez [...] ambulatory Judith Valdes PSYD Work Phone: [facility] Comment on above: Depression, unspecif ied depression [...] with patient Ruth Villaseñor MD Work Phone: [facility] Start: 09-30-2021 ambulatory Landen Mahmood APR N.TREE TRIMMER Work Phone: Pulmonary Medicine Comment on above: Breast testing Start: 09-30-2021 End: 09-30-2021 Subsequent hospital visit by physician Xr Chest Main A21 Radiology Comment on above: History of COVID-19 [Z86.16] Start: 09-27-2021 End: 09-27-2021 ambulatory Pulm Isaban Work Phone: Pulmonary Lab Comment on above: Spirometry Start: 09-27-2021 End: 09-27-2021 Patient encounter procedure Pulm Lab [place] Work Phone: [facility] Start: 09-23-2021 ambulatory Landen Mahmood APR N.TREE TRIMMER Work Phone: Pulmonary Medicine Comment on above: Breathing test Start: 09-22-2021 End: 09-23-2021 ambulatory Landen Mahmood APRN.TREE TRIMMER Work Phone: Pulmonary Medicine Comment on above: Ct scan results Start: 09-22-2021 Telephone encounter Landen Mahmood APRN.MACY Work Phone: Pulmonary Medicine Comment on above: Results Start: 09-21-2021 End: 09-21-2021 Patient encounter procedure Ruth Villaseñor MD Work Phone: Rheumatology Comment on above: Bone pain (Primary D x); Malaise and fatigue; Lymphadenopathy Start: 09-21-2021 End: 09-22-[address] CAS DOWELL Facility:[facility] Start: 09-19-2021 End: 09-19-2021 Patient encounter procedure Landen Mahmood APRN.MACY Work Phone: Pulmonary Medicine Comment on above: 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); History of COVID-19; SOB (shortness of breath); Chronic cough; Chest discomfort; Palpitation; CAVANAUGH (dyspnea on exertion); Dizziness; Near syncope; Night sweats; Orthopnea; Anxiety; Myalgia; Pain in joint, multiple sites; Mass of left axilla Start: 09-19-2021 Telephone encounter Landen Mamhood APRN.MACY Work Phone: Pulmonary Medicine Comment on above: Db2 Dba - O ther Start: 09-16-2021 End: 09-16-2021 ambulatory Judith Valdes PSYD Work Phone: [facility] Comment on above: Depression, unspecif ied depression type (Primary Dx); Anxiety; Abnormal involuntary movement Start: 09-16-2021 End: 09-16-2021 Telemedicine consultation with patient Judith Valdes PSYD Work Phone: [facility] Start: 09-05-2021 End: 09-05-2021 Emergency department patient visit Christine Abraham DO Work Phone: [facility] Comment on above: Allergic reaction, i nitial encounter (Primary Dx) Start: 08-30-2021 End: 08-30-2021 [facility] Ayaka Bright MD Work Phone: [facility] Comment on above: Long COVID (Primary Dx); Diffuse pain; Decreased activity tolerance; PTSD (post-traumatic stress disorder) CT scan results sent Start: 08-23-2021 Telephone encounter Shelbie Umaña PA-C Work Phone: General Surgery Comment on above: Results - Ct Start: 08-23-2021 End: 08-23-2021 ambulatory Peter Knight APRNKerriTREE TRIMMER Work Phone: Neurology Comment on above: Diffuse pain (Primar y Dx); Decreased activity tolerance; Physical deconditioning; Orthostatic intolerance Start: 08-23-2021 End: 08-23-2021 Telemedicine consultation with patient Peter Knight APRN.TREE TRIMMER Work Phone: [facility] Start: 08-19-2021 End: 08-19-2021 Subsequent hospital visit by physician Transportation Bl [address] Radiology Comment on above: Chronic RLQ pain [R1 0.31, G89.29] Start: 08-18-2021 ambulatory Mike Zayas MD Work Phone: Kidney Medicine [facility] Start: 08-18-2021 Patient encounter procedure Mike Zayas MD Work Phone: [facility] Start: 08-17-2021 ambulatory SAI ANA Facility: [facility] Start: 08-17-2021 End: 08-17-2021 Subsequent hospital visit by physician Kitty [facility] Echocardiology Testing Comment on above: Symptomatic bradycar aziza [R00.1] Start: 08-16-2021 Orders Only Berlin Avila MD Work Phone: Radiology Comment on above: Chronic RLQ pain (Pr imary Dx) Start: 08-15-2021 Telephone encounter Jenni cassidy RN Work Phone: [facility] Delivery Comment on above: Insurance Authorizat ion (Emgality 120MG/ML syringes (migraine)) Start: 08-15-2021 End: 08-15-2021 Patient encounter procedure Berlin Avila MD Work Phone: General Surgery Comment on above: Chronic RLQ pain (Pr imary Dx); Diastasis recti Start: 08-12-2021 End: 08-12-2021 ambulatory Daniela Stewart PT Work Phone: [facility] Comment on above: Intractable chronic migraine without aura and without status migrainosus; Abnormal involuntary movement Start: 08-12-2021 End: 08-12-2021 Patient encounter procedure Cocoa Press Operator Work Phone: Kidney Medicine Main [place] Comment on above: White coat syndrome with hypertension (Primary Dx) Start: 08-05-2021 End: 08-05-2021 ambulatory Bhargavi Gadiel HEREDIA Work Phone: Neurology Comment on above: Chronic migraine wit hout aura, intractable, without status migrainosus (Primary Dx) Start: 08-05-2021 End: 08-05-2021 Telemedicine consultation with patient Bhargavi Fryamanda SERRA-C Work Phone: [facility] Start: 08-03-2021 End: 08-03-[address] RUBENS TIM . Facility: Start: 07-29-2021 End: 07-29-2021 ambulatory Judith Valdes REINIER Work Phone: [facility] Comment on above: Depression, unspecif ied depression [...] endocr ine disorder Start: 07-15-2021 End: 07-15-2021 [facility] Work Phone: [facility] Comment on above: Bleeding disorder (H CC) (Primary Dx); Coagulopathy (HCC); 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HCC) Start: 07-14-2021 End: 07-14-2021 Patient encounter procedure Aldo Ann MD Work Phone: Otolaryngology Comment on above: Allergy, initial enc ounter (Primary Dx); Headaches Start: 07-06-2021 End: 07-06-2021 Patient encounter procedure Tracee Mcintyre MD Work Phone: [facility] Comment on above: Intractable chronic migraine without [...] BECKHAM . Facility: Start: 06-22-2021 ambulatory Peter Antonia VACA.TREE TRIMMER Work Phone: Neurology Comment on above: Legs Start: 06-20-2021 End: 06-21-2021 Emergency department patient visit Sean Moses DO Work Phone: [facility] Comment on above: Spasm of muscle (Hannah bhumika Dx); Acute nonspecific chest pain with low risk of coronary artery disease Start: 06-16-2021 Telephone encounter Yan Bass MD Work Phone: Hematology/Oncology Comment on above: Results Start: 06-16-2021 ambulatory PETER KNIGHT Facility :[facility] Start: 06-14-2021 Telephone encounter Jackelyn Lewis i, [...] encounter procedure Autonomic 2 Neur Main [facility] Start: 06-13-2021 ambulatory Peter Knight APRN.TREE TRIMMER Work Phone: Neurology Comment on above: Blood results Start: 06-10-2021 End: 06-10-2021 ambulatory Yan Bass MD Work Phone: Hematology/Oncology Comment on above: Coagulopathy (HCC) ( Primary Dx) Start: 06-10-2021 End: 06-10-2021 Patient encounter procedure Yan Bass MD Work Phone: [facility] Start: 06-08-2021 Chart abstracting Yan tran MD Work Phone: Hematology/Oncology Start: 06-04-2021 End: 06-04-2021 Emergency department patient visit Brian Santana MD Work Phone: [facility] Comment on above: Urticaria (Primary D x); Moderate persistent asthma with exacerbation Start: 05-31-2021 Telephone encounter Peter bermeo GAS COMBUSTION ENGINEER.TREE TRIMMER Work Phone: Neurology Comment on above: Received Outside Med ical Records ([facility]) Start: 05-20-2021 End: 05-20-2021 Emergency department patient visit Cas Dowell MD Work Phone: [facility] Comment on above: Chest pain, unspecif ied type (Primary Dx); Abdominal pain, acute, right lower quadrant Start: 04-16-2021 End: 04-16-2021 Emergency department patient visit Mike Stevenson MD [facility] Comment on above: Intractable nausea a nd vomiting (Primary Dx); Hydrosalpinx; Left ovarian cyst Start: 03-07-2021 End: 03-08-2021 ambulatory CAS DOWELL [facility] Start: 03-06-2021 End: 03-07-2021 ambulatory CAS DOWELL [facility] Start: 11-01-2020 End: 11-01-2020 Emergency department patient visit Araseli Barrett MD Work Phone: [facility] Comment on above: COVID-19 (Primary Dx ) Start: 06-13-2020 End: 06-13-2020 Emergency department patient visit Kody Cm MD Work Phone: [facility] Comment on above: Strain of lumbar reg ion, initial encounter (Primary Dx) Procedures Date Procedure Procedure Detail Performing Clinician Start: 05-08-2023 Follow-up visit Follow-up SARAH BEST Start: 01-31-2023 Esophagogastroduodenoscopy Selma Choe Start: 01-04-2023 Adult depression screening assessment Marni Flowers GAS COMBUSTION ENGINEER-TREE TRIMMER Work Phone: Start: 01-01-2023 Hemoglobin glycosylated a1c Cas Dowell MD Work Phone: Start: 02-17-2022 Assay of free thyroxine Akila Yao MD Work Phone: Start: 01-23-2022 Cystourethroscopy with dilation of urethral stricture LORAINE BURNHAM Start: 10-17-2021 Adult depression screening assessment Sharmilaeran Keisha [place] Work Phone: Start: 10-08-2021 Adult depression screening assessment Ruth Villaseñor MD Work Phone: Start: 09-30-2021 Radiologic exam chest 2 views Landen Mahmood GAS COMBUSTION ENGINEER.TREE TRIMMER Work Phone: Start: 09-27-2021 End: 09-27-2021 Co diffusing capacity Landen Mahmood GAS COMBUSTION ENGINEER.TREE TRIMMER Work Phone: Start: 09-14-2021 Adult depression screening assessment Judith Keisha [place] Work Phone: Start: 08-19-2021 Us pelvic [...] 06-21-2021 Basic metabolic panel calcium total Sean Moses DO Work Phone: Start: 06-21-2021 Ecg routine ecg w/least 12 lds w/i&r Sean Moses DO Work Phone: Start: 06-20-2021 Adult depression screening assessment Peter Knight GAS COMBUSTION ENGINEER.TREE TRIMMER Work Phone: Start: 06-04-2021 RESPIRATORY CARE EVALUATION ONLY Brian Santaan MD Work Phone: Start: 05-20-2021 Assay of troponin quantitative Shanna Rivas GAS COMBUSTION ENGINEER - TREE TRIMMER Work Phone: Start: 05-20-2021 Ct abdomen & pelvis w/o contrast material Shanna Rivas GAS COMBUSTION ENGINEER - TREE TRIMMER Work Phone: Start: 05-20-2021 Drug screen class list a Shanna anguiano GAS COMBUSTION ENGINEER - TREE TRIMMER Work Phone: Start: 05-20-2021 Urinalysis microscopic only Shanna verduzco GAS COMBUSTION ENGINEER - TREE TRIMMER Work Phone: Start: 05-20-2021 Urnls dip stick/tablet rgnt auto w/o microscopy Shanna Rivas GAS COMBUSTION ENGINEER - TREE TRIMMER Work Phone: Start: 05-20-2021 Radiologic exam chest single view Adryan Rivas GAS COMBUSTION ENGINEER - TREE TRIMMER Work Phone: Start: 05-20-2021 Assay of lactate Shanna Rivas GAS COMBUSTION ENGINEER - TREE TRIMMER Work Phone: Start: 05-20-2021 BASIC METABOLIC PANEL W/ REFLEX TO MG FOR LOW K Shanna Rivas GAS COMBUSTION ENGINEER - TREE TRIMMER Work Phone: Start: 05-20-2021 C-reactive protein Shanna Rivas GAS COMBUSTION ENGINEER - TREE TRIMMER Work Phone: Start: 05-20-2021 Ecg routine ecg w/least 12 lds w/i&r Araseli Barrett MD Work Phone: Start: 05-19-2021 Adult depression screening assessment Peter Guzzo GAS COMBUSTION ENGINEER.TREE TRIMMER Work Phone: Start: 04-16-2021 Ct abdomen & pelvis w/o contrast material Shanna Rivas GAS COMBUSTION ENGINEER - TREE TRIMMER Work Phone: Start: 04-16-2021 Radiologic exam chest single view Adryan Rivas GAS COMBUSTION ENGINEER - TREE TRIMMER Work Phone: Start: 04-16-2021 Ecg routine ecg w/least 12 lds w/i&r Shanna Rivas GAS COMBUSTION ENGINEER - TREE TRIMMER Work Phone: Start: 04-16-2021 Urinalysis microscopic only Shanna Peña dax GAS COMBUSTION ENGINEER - TREE TRIMMER Work Phone: Start: 04-16-2021 Urine test visual color cmprsn meths Shanna Rivas GAS COMBUSTION ENGINEER - TREE TRIMMER Work Phone: Start: 04-16-2021 Assay of lipase Shanna Rivas GAS COMBUSTION ENGINEER - TREE TRIMMER Work Phone: Start: 04-16-2021 BASIC METABOLIC PANEL W/ REFLEX TO MG FOR LOW K Shanna Bishop Evelyn GAS COMBUSTION ENGINEER - TREE TRIMMER Work Phone: Start: 04-16-2021 Hepatic function panel Shanna Rivas GAS COMBUSTION ENGINEER - TREE TRIMMER Work Phone: Start: 02-10-2021 H/O: hysterectomy History of hysterectomy Marni Lionel GAS COMBUSTION ENGINEER-TREE TRIMMER Work Phone: Start: 11-01-2020 Ecg routine ecg [...] LORAINE BURNHAM Start: 04-08-2009 Laparoscopic cholecystostomy LORAINE BRUCE RRY Appendectomy LORAINE BURNHAM section LORAINE BRUCE RRY Colonoscopy Selma Orzech Endometrial ablation Selma Orzech Esophagogastroduodenoscopy A urora Orzech Insertion of cardiac monitoring implant using fluoroscopic guidance Selma Orzech Laparoscopic lysis of adhesions Selma Orzech Ligation of fallopian tube J DELIA BURNHAM Nasal septoplasty LORAINE Olivia ERRY Tympanostomy LORAINE BURNHAM Plan of Treatment Date Care Activity Detail Author Start: 11-27-2024 End: 11-27-2024 Patient encounter procedure 11/27/2024 10:00 AM EDT Office Visit [facility] [address] [address] Rubens Tim DO [address] [facility] [place] [address] [address] [facility] Start: 11-24-2024 End: 11-24-2024 Patient encounter procedure 11/24/2024 10:00 AM EDT Office Visit [facility] [address] [place] [phone] Akila Yao MD [address] [place] [address] [facility] Start: 11-21-2024 Adult BMI Screening Adult BMI Screening [facility] Start: 11-21-2024 Tobacco Screening Tobacco Screening [facility] Start: 09-30-2024 End: 09-30-2024 CBC W Auto Differential panel - Blood COMPLETE BLOOD COUNT AND DIFFERENTIAL Lab Routine 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HCC) Expected: 09/30/2024 (Approximate), Expires: 09/30/2024 [facility] Work Phone: Comment on above: Expected: 09/30/2024 (Approximate), Expi res: 09/30/2024 Start: 09-30-2024 End: 09-30-2024 Comprehensive metabolic 2000 panel - Serum or Plasma COMPREHENSIVE METABOLIC PANEL Lab Routine 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HCC) Expected: 09/30/2024 (Approximate), Expires: 09/30/2024 [facility] Comment on above: Expected: 09/30/2024 (Approximate), Expi res: 09/30/2024 Start: 09-29-2024 End: 09-29-2024 Follow-up encounter 09/29/2024 9:45 AM EDT Visit (SP) Office Hematology/Oncology [address] [place] [address] Fuentes Amaral MD [address] [place] [address] 1 year follow up Hematology/Oncology Comment on above: 1 year follow up Start: 09-29-2024 End: 09-29-2024 Patient encounter procedure 09/29/2024 9:30 AM EDT Office Visit [facility] [address] [place] [address] [facility] Comment on above: 1 year follow up Start: 07-08-2024 End: 07-08-2024 Patient encounter procedure 07/08/2024 8:30 AM EDT Office Visit [facility] [address] [place] [phone] Jodi Mazariegos, PONCE [address] [place] [address] [facility] Start: 05-07-2024 Adult BMI Screening Adult BMI Screening [facility] Start: 05-07-2024 Tobacco Screening Tobacco Screening [facility] Start: 04-12-2024 Urine screening for protein Diabetes: Urine Protein Screening [facility] Start: 02-22-2024 Hemoglobin A1c measurement Diabetes: Hemoglobin A1C [facility] Start: 01-14-2024 End: 01-14-2024 Patient encounter procedure 01/14/2024 9:40 AM EST Office Visit [facility] [address] [place] [phone] Christy Painting MD [address] [place] [address] [facility] Start: 01-09-2024 End: 01-09-2024 Patient encounter procedure 01/09/2024 8:45 AM EST Office [facility] [address] [place] [address] Cas Dowell MD [address] [place] [phone] [facility] Start: 01-05-2024 Adult BMI Screening Adult BMI Screening [facility] Start: 01-05-2024 Depression Screening Depression Screening [facility] Start: 01-05-2024 Tobacco Screening Tobacco Screening [facility] Start: 01-02-2024 End: 01-02-2024 Patient encounter procedure 01/02/2024 10:30 AM EST Office Visit [facility] [address] [place] [address] Marni Flowers APRN-MACY [address] [place] [address] [facility] Start: 11-20-2023 End: 11-19-2024 Cortisol free Cortisol, free Lab Routine PCOS (polycystic ovarian syndrome) Hormone disorder Expected: 11/20/2023, Expires: 11/19/2024 [facility] Comment on above: Expected: 11/20/2023, Expires: Start: 11-20-2023 End: 11-19-2024 DHEA DHEA Lab Routine PCOS (polycystic ovarian syndrome) Hormone disorder Expected: 11/20/2023, Expires: 11/19/2024 [facility] Comment on above: Expected: 11/20/2023, Expires: Start: 11-20-2023 End: 11-19-2024 DHEA-sulfate DHEA-sulfate Lab Routine PCOS (polycystic ovarian syndrome) Hormone disorder Expected: 11/20/2023 (Approximate), Expires: 11/19/2024 [facility] Comment on above: Expected: 11/20/2023 (Approximate), Expi res: 11/19/2024 Start: 11-20-2023 End: 11-19-2024 Estradiol Estradiol Lab Routine PCOS (polycystic ovarian syndrome) Hormone disorder Expected: 11/20/2023 (Approximate), Expires: 11/19/2024 [facility] Comment on above: Expected: 11/20/2023 (Approximate), Expi res: 11/19/2024 Start: 11-20-2023 End: 11-19-2024 Miscellaneous Lab Test Miscellaneous Lab Test Lab Routine PCOS (polycystic ovarian syndrome) Hormone disorder Expected: 11/20/2023 (Approximate), Expires: 11/19/2024 [facility] Comment on above: Expected: 11/20/2023 (Approximate), Expi res: 11/19/2024 Start: 11-20-2023 End: 11-19-2024 Progesterone Progesterone Lab Routine PCOS (polycystic ovarian syndrome) Hormone disorder Expected: 11/20/2023 (Approximate), Expires: 11/19/2024 [facility] Comment on above: Expected: 11/20/2023 (Approximate), Expi res: 11/19/2024 Start: 11-20-2023 End: 11-19-2024 TESTOSTERONE, FREE TESTOSTERONE, FREE Lab Routine PCOS (polycystic ovarian syndrome) Hormone disorder Expected: 11/20/2023 (Approximate), Expires: 11/19/2024 [facility] Comment on above: Expected: 11/20/2023 (Approximate), Expi res: 11/19/2024 Start: 11-20-2023 End: 11-19-2024 Testosterone, free, total Testosterone, free, total Lab Routine PCOS (polycystic ovarian syndrome) Hormone disorder Expected: 11/20/2023 (Approximate), Expires: 11/19/2024 [facility] Comment on above: Expected: 11/20/2023 (Approximate), Expi res: 11/19/2024 Start: 11-20-2023 End: 11-19-2024 US for US PELVIS-TRANSVAG IF INDICATED Imaging Routine PCOS (polycystic ovarian syndrome) Hormone disorder Expected: 11/20/2023 (Approximate), Expires: 11/19/2024 [facility] Comment on above: Expected: 11/20/2023 (Approximate), Expi res: 11/19/2024 Start: 11-20-2023 End: 11-20-2023 Patient encounter procedure [facility] Comment on above: Arrived Start: 11-19-2023 End: 11-19-2023 Patient encounter procedure 11/19/2023 8:45 AM EDT [facility] [address] [place] [address] Akila Yao MD 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 Expected: 11/07/2023 (Approximate), Expires: 05/07/2024 [facility] Comment on above: Expected: 11/07/2023 (Approximate), Expi res: 05/07/2024 Start: 11-07-2023 End: 11-07-2023 Patient encounter procedure 11/07/2023 10:00 AM EDT Office Visit [facility] [address] [place] [address] Christy Painting MD [address] [place] [address] Allergic reaction, subsequent encounter [facility] Comment on above: Allergic reaction, subsequent encounter Start: 10-07-2023 Covid-19 Vaccine ( season) Covid-19 Vaccine ( season) [facility] Start: 10-07-2023 Influenza vaccination [facility] Start: 10-03-2023 End: 10-03-2023 CBC W Auto Differential panel - Blood CBC + DIFF Lab Routine 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) Coagulopathy (HCC) Expected: 10/03/2023 (Approximate), Expires: 10/03/2023 [facility] Work Phone: Comment on above: Expected: 10/03/2023 (Approximate), Expi res: 10/03/2023 Start: 10-03-2023 End: 10-03-2023 Comprehensive metabolic 2000 panel - Serum or Plasma COMP METABOLIC PANEL Lab Routine 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) Coagulopathy (HCC) Expected: 10/03/2023 (Approximate), Expires: 10/03/2023 [facility] Work Phone: Comment on above: Expected: 10/03/2023 (Approximate), Expi res: 10/03/2023 Start: 07-10-2023 End: 07-10-2023 Patient encounter procedure 07/10/2023 9:00 AM EDT Office Visit [facility] [address] [place] [phone] Jodi Mazariegos, [place] [address] [place] [address] [facility] Start: 07-05-2023 End: 07-05-2023 Telemedicine consultation with patient 07/05/2023 3:30 PM EDT Telemedicine [facility] [address] [place] [address] Marni Flowers, GAS COMBUSTION ENGINEER-TREE TRIMMER [address] [place] [address] [facility] Start: 05-08-2023 End: 05-07-2024 US Thyroid gland Ultrasound thyroid Imaging Routine 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 [place] [address] [facility] Start: 04-09-2023 End: 04-09-2023 Patient encounter procedure 04/09/2023 8:45 AM EST Office Visit [facility] [address] [place] [address] Cas Dowell MD [address] [place] [address] [facility] Start: 04-03-2023 Hemoglobin A1c measurement Diabetes: Hemoglobin A1C [facility] Start: 01-30-2023 GFR test (Diabetes, CKD 3-4, OR last GFR 15-59) GFR test (Diabetes, CKD 3-4, OR last GFR 15-59) [facility] Start: 01-09-2023 Hemoglobin A1c measurement A1C test (Diabetic or Prediabetic) [facility] Start: 10-17-2022 Adult depression screening assessment DEPRESSION SCREENING [facility] Start: 10-08-2022 Adult depression screening assessment DEPRESSION SCREENING [facility] Start: 10-06-2022 Covid-19 Vaccine ( season) Covid-19 Vaccine ( season) [facility] Start: 10-06-2022 Influenza vaccination [facility] Start: 10-01-2022 End: 04-03-2023 CBC W Auto Differential panel - Blood CBC + DIFF Lab Routine 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) Expected: 10/01/2022 (Approximate), Expires: 04/03/2023 [facility] Work Phone: Comment on above: Expected: 10/01/2022 (Approximate), Expi res: 04/03/2023 Start: 10-01-2022 End: 04-03-2023 Comprehensive metabolic 2000 panel - Serum or Plasma COMP METABOLIC PANEL Lab Routine 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) Expected: 10/01/2022 (Approximate), Expires: 04/03/2023 [facility] Work Phone: Comment on above: Expected: 10/01/2022 (Approximate), Expi res: 04/03/2023 Start: 09-14-2022 Adult depression screening assessment DEPRESSION SCREENING [facility] Start: 07-29-2022 Adult depression screening assessment DEPRESSION SCREENING [facility] Start: 06-29-2022 Adult depression screening assessment DEPRESSION SCREENING [facility] Start: 06-21-2022 End: 06-21-2022 Patient encounter procedure 06/21/2022 Office Visit Pulmonology Armando Balderrama, [address] [facility] [address] [place], [place] [phone] [facility] Start: 06-20-2022 Adult depression screening assessment DEPRESSION SCREENING [facility] Start: 05-25-2022 Depression Monitoring Depression Monitoring [facility] Start: 05-19-2022 Adult depression screening assessment DEPRESSION SCREENING [facility] Start: 04-16-2022 Creatinine measurement Creatinine monitoring [facility] Start: 04-16-2022 Potassium monitoring Potassium monitoring [facility] Start: 02-27-2022 End: 02-27-2022 Patient encounter procedure 02/27/2022 Office Visit Pulmonology Nabor Yancey, GAS COMBUSTION ENGINEER - TREE TRIMMER [id number] [facility] OUTREACH P[facility] Start: 02-10-2022 End: 04-12-2022 PLATELET TRANSMISSION ELECTRON MICROSCOPIC STUDY PLATELET TRANSMISSION ELECTRON MICROSCOPIC STUDY Lab Routine 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) Expected: 02/10/2022, Expires: 04/12/2022 [facility] Work Phone: Comment on above: Expected: 02/10/2022, Expires: 3 Start: 02-05-2022 DEPRESSION ASSESSMENT DEPRESSION ASSESSMENT [facility] Start: 2021 End: 2021 Patient encounter procedure 2021 Office Visit Pulmonology Armando Balderrama DO [address] [facility] [address] [place] [address] [facility] Start: 11-16-2021 End: 01-16-2022 Ferritin [Mass/volume] in Serum or Plasma FERRITIN BLD Lab Routine RLS (restless legs syndrome) Expected: 11/16/2021, Expires: 01/16/2022 [facility] Work Phone: Comment on above: Expected: 11/16/2021, Expires: 2 Start: 11-16-2021 End: 01-16-2022 Iron and Iron binding capacity panel - Serum or Plasma IRON + TIBC Lab Routine RLS (restless legs syndrome) Expected: 11/16/2021, Expires: 01/16/2022 [facility] Work Phone: Comment on above: Expected: 11/16/2021, Expires: 2 Start: 11-01-2021 Creatinine measurement Creatinine monitoring [facility] Work Phone: Start: 11-01-2021 Potassium monitoring Potassium monitoring [facility] Work Phone: Start: 10-06-2021 Influenza vaccination [facility] Start: 09-28-2021 Glaucoma screening Diabetic retinal exam [facility] Start: 09-21-2021 End: 11-21-2021 Phosphate [Mass/volume] in Serum or Plasma [facility] Work Phone: Comment on above: Expected: [...] joint, multiple sites Expected: 09/19/2021, Expires: 11/19/2021 [facility] Work Phone: Comment on above: Expected: [...] joint, multiple sites Expected: 09/19/2021, Expires: 11/19/2021 [facility] Work Phone: Comment on above: Expected: 09/19/2021, Expires: 2 Start: 09-19-2021 End: 11-19-2021 CARDIOLIPIN IGM ABS CARDIOLIPIN IGM ABS Lab Routine History of COVID-19 Post-acute sequelae of COVID-19 (PASC) SOB (shortness of breath) Chronic cough Chest discomfort Palpitation CAVANAUGH (dyspnea on exertion) Dizziness Near syncope Night sweats Orthopnea Anxiety Myalgia Pain in joint, multiple sites Expected: 09/19/2021, Expires: 11/19/2021 [facility] Work Phone: Comment on above: Expected: 09/19/2021, Expires: 2 Start: 09-19-2021 End: 11-19-2021 CBC panel - Blood by Automated count CBC Lab Routine History of COVID-19 Post-acute sequelae of COVID-19 (PASC) SOB (shortness of breath) Chronic cough Chest discomfort Palpitation CAVANAUGH (dyspnea on exertion) Dizziness Near syncope Night sweats Orthopnea Anxiety Myalgia Pain in joint, multiple sites Expected: 09/19/2021, Expires: 11/19/2021 [facility] Work Phone: Comment on above: Expected: [...] joint, multiple sites Expected: 09/19/2021, Expires: 11/19/2021 [facility] Work Phone: Comment on above: Expected: [...] joint, multiple sites Expected: 09/19/2021, Expires: 11/19/2021 [facility] Work Phone: Comment on above: Expected: 09/19/2021, Expires: 2 Start: 09-19-2021 End: 11-19-2021 Erythrocyte sedimentation rate SED RATE WESTERGREN Lab Routine History of COVID-19 Post-acute sequelae of COVID-19 (PASC) SOB (shortness of breath) Chronic cough Chest discomfort Palpitation CAVANAUGH (dyspnea on exertion) Dizziness Near syncope Night sweats Orthopnea Anxiety Myalgia Pain in joint, multiple sites Expected: 09/19/2021, Expires: 11/19/2021 [facility] Work Phone: Comment on above: Expected: 09/19/2021, Expires: 2 Start: 09-19-2021 End: 11-19-2021 Fibrin D-dimer FEU [Mass/volume] in Platelet poor plasma D-DIMER Lab Routine History of COVID-19 Post-acute sequelae of COVID-19 (PASC) SOB (shortness of breath) Chronic cough Chest discomfort Palpitation CAVANAUGH (dyspnea on exertion) Dizziness Near syncope Night sweats Orthopnea Anxiety Myalgia Pain in joint, multiple sites Expected: 09/19/2021, Expires: 11/19/2021 [facility] Work Phone: Comment on above: Expected: [...] joint, multiple sites Expected: 09/19/2021, Expires: 11/19/2021 [facility] Work Phone: Comment on above: Expected: 09/19/2021, Expires: 2 Start: 09-19-2021 End: 11-19-2021 OMEGACHECK OMEGACHECK Lab Routine History of COVID-19 Post-acute sequelae of COVID-19 (PASC) SOB (shortness of breath) Chronic cough Chest discomfort Palpitation CAVANAUGH (dyspnea on exertion) Dizziness Near syncope Night sweats Orthopnea Anxiety Myalgia Pain in joint, multiple sites Expected: 09/19/2021, Expires: 11/19/2021 [facility] Work Phone: Comment on above: Expected: 09/19/2021, Expires: 2 Start: 09-19-2021 End: 11-19-2021 TMAO TMAO Lab Routine History of COVID-19 Post-acute sequelae of COVID-19 (PASC) SOB (shortness of breath) Chronic cough Chest discomfort Palpitation CAVANAUGH (dyspnea on exertion) Dizziness Near syncope Night sweats Orthopnea Anxiety Myalgia Pain in joint, multiple sites Expected: 09/19/2021, Expires: 11/19/2021 [facility] Work Phone: Comment on above: Expected: 09/19/2021, Expires: 2 Start: 09-19-2021 End: 11-19-2021 TRACE ELEMENTS/TPN TRACE ELEMENTS/TPN Lab Routine History of COVID-19 Post-acute sequelae of COVID-19 (PASC) SOB (shortness of breath) Chronic cough Chest discomfort Palpitation CAVANAUGH (dyspnea on exertion) Dizziness Near syncope Night sweats Orthopnea Anxiety Myalgia Pain in joint, multiple sites Expected: 09/19/2021, Expires: 11/19/2021 [facility] Work Phone: Comment on above: Expected: 09/19/2021, Expires: 2 Start: 09-05-2021 Influenza vaccination Flu vaccine (#1) [facility] Start: 08-24-2021 End: 08-24-2021 Patient encounter procedure 08/24/2021 Office Visit Pulmonology Armando Balderrama, [address] [place] [address] [facility] Start: 07-25-2021 End: 09-24-2021 Complement C3 [Mass/volume] in Serum or Plasma [facility] Work Phone: Comment on above: Expected: 07/25/2021, Expires: 2 Start: 07-25-2021 End: 09-24-2021 Complement C4 [Mass/volume] in Serum or Plasma [facility] Work Phone: Comment on above: Expected: 07/25/2021, Expires: 2 Start: 07-25-2021 End: 09-24-2021 TRYPTASE BLOOD [facility] Work Phone: Comment on above: Expected: 07/25/2021, Expires: 2 Start: 07-05-2021 End: 09-04-2021 Corticotropin [Mass/volume] in Plasma ACTH BLD Lab Routine Screening for endocrine disorder Expected: 07/05/2021, Expires: 09/04/2021 [facility] Work Phone: Comment on above: Expected: 07/05/2021, Expires: 2 Start: 07-05-2021 End: 09-04-2021 Cortisol [Mass/volume] in Serum or Plasma CORTISOL BLD Lab Routine Screening for endocrine disorder Expected: 07/05/2021, Expires: 09/04/2021 [facility] Work Phone: Comment on above: Expected: 07/05/2021, Expires: 2 Start: 07-01-2021 End: 08-31-2021 CBC W Ordered Manual Differential panel - Blood PATHOLOGIST INTERPRETATION WITH CBC AND DIFF Lab Routine Coagulopathy (HCC) 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HCC) Expected: 07/01/2021, Expires: 08/31/2021 [facility] Work Phone: Comment on above: Expected: 07/01/2021, Expires: 2 Start: 07-01-2021 End: 08-31-2021 Fibrinogen [Mass/volume] in Platelet poor plasma by Coagulation assay FIBRINOGEN Lab Routine Coagulopathy (HCC) 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HCC) Expected: 07/01/2021, Expires: 08/31/2021 [facility] Work Phone: Comment on above: Expected: 07/01/2021, Expires: 2 Start: 07-01-2021 End: 08-31-2021 FIBRINOGEN ANTIGEN FIBRINOGEN ANTIGEN Lab Routine Coagulopathy (HCC) 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HCC) Expected: 07/01/2021, Expires: 08/31/2021 [facility] Work Phone: Comment on above: Expected: 07/01/2021, Expires: 2 Start: 07-01-2021 End: 08-31-2021 PLATELET AGGREGATION PANEL PLATELET AGGREGATION PANEL Lab Routine Coagulopathy (HCC) 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HCC) Expected: 07/01/2021, Expires: 08/31/2021 [facility] Work Phone: Comment on above: Expected: 07/01/2021, Expires: 2 Start: 07-01-2021 End: 08-31-2021 PLATELET FUNCTION SCREEN PLATELET FUNCTION SCREEN Lab Routine Coagulopathy (HCC) 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HCC) Expected: 07/01/2021, Expires: 08/31/2021 [facility] Work Phone: Comment on above: Expected: 07/01/2021, Expires: 2 Start: 07-01-2021 End: 08-31-2021 THROMBOGRAPH HEPARINASE PANEL THROMBOGRAPH HEPARINASE PANEL Lab Routine Coagulopathy (HCC) 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HCC) Expected: 07/01/2021, Expires: 08/31/2021 [facility] Work Phone: Comment on above: Expected: 07/01/2021, Expires: 2 Start: 06-27-2021 End: 08-27-2021 Alpha tocopherol [Mass/volume] in Serum or Plasma VITAMIN E/TOCOPHEROL Lab Routine Muscle spasms of lower extremity, unspecified laterality Akathisia Expected: 06/27/2021, Expires: 08/27/2021 [facility] Work Phone: Comment on above: Expected: 06/27/2021, Expires: 2 Start: 06-27-2021 End: 08-27-2021 Ceruloplasmin [Mass/volume] in Serum or Plasma CERULOPLASMIN BLD Lab Routine Muscle spasms of lower extremity, unspecified laterality Akathisia Expected: 06/27/2021, Expires: 08/27/2021 [facility] Work Phone: Comment on above: Expected: 06/27/2021, Expires: 2 Start: 06-27-2021 End: 08-27-2021 CK CREATINE KINASE CK CREATINE KINASE Lab Routine Muscle spasms of lower extremity, unspecified laterality Akathisia Expected: 06/27/2021, Expires: 08/27/2021 [facility] Work Phone: Comment on above: Expected: 06/27/2021, Expires: 2 Start: 06-27-2021 End: 08-27-2021 COPPER, SERUM/PLASMA FREE COPPER, SERUM/PLASMA FREE Lab Routine Muscle spasms of lower extremity, unspecified laterality Akathisia Expected: 06/27/2021, Expires: 08/27/2021 [facility] Work Phone: Comment on above: Expected: 06/27/2021, Expires: 2 Start: 06-27-2021 End: 08-27-2021 FERRITIN BLD FERRITIN BLD Lab Routine Muscle spasms of lower extremity, unspecified laterality Akathisia Expected: 06/27/2021, Expires: 08/27/2021 [facility] Work Phone: Comment on above: Expected: 06/27/2021, Expires: 2 Start: 06-14-2021 End: 08-14-2021 Corticotropin [Mass/volume] in Plasma ACTH BLD Lab Routine Screening for endocrine disorder Expected: 06/14/2021, Expires: 08/14/2021 [facility] Work Phone: Comment on above: Expected: 06/14/2021, Expires: 2 Start: 06-14-2021 End: 08-14-2021 Cortisol [Mass/volume] in Serum or Plasma [facility] Work Phone: Comment on above: Expected: 06/14/2021, Expires: 2 Start: 06-14-2021 End: 08-14-2021 DHEA-S BLD [facility] Work Phone: Comment on above: Expected: 06/14/2021, Expires: 2 Start: 06-10-2021 End: 08-10-2021 APTT INCUBATED MIXING STUDY APTT INCUBATED MIXING STUDY Lab Routine Coagulopathy ([facility]) Expected: 06/10/2021, Expires: 08/10/2021 [facility] Work Phone: Comment on above: Expected: 06/10/2021, Expires: 2 Start: 06-10-2021 End: 08-10-2021 Coagulation factor IX activity actual/normal in Platelet poor plasma by Coagulation assay FACTOR IX:C ASSAY Lab Routine Coagulopathy ([facility]) Expected: 06/10/2021, Expires: 08/10/2021 [facility] Work Phone: Comment on above: Expected: 06/10/2021, Expires: 2 Start: 06-10-2021 End: 08-10-2021 Coagulation factor V activity actual/normal in Platelet poor plasma by Coagulation assay FACTOR V:C ASSAY Lab Routine Coagulopathy ([facility]) Expected: 06/10/2021, Expires: 08/10/2021 [facility] Work Phone: Comment on above: Expected: 06/10/2021, Expires: 2 Start: 06-10-2021 End: 08-10-2021 Coagulation factor VIII activity actual/normal in Platelet poor plasma by Coagulation assay FACTOR VIII:C ASSAY Lab Routine Coagulopathy ([facility]) Expected: 06/10/2021, Expires: 08/10/2021 [facility] Work Phone: Comment on above: Expected: 06/10/2021, Expires: 2 Start: 06-10-2021 End: 08-10-2021 Coagulation factor X activity actual/normal in Platelet poor plasma by Coagulation assay FACTOR X:C ASSAY Lab Routine Coagulopathy ([facility]) Expected: 06/10/2021, Expires: 08/10/2021 [facility] Work Phone: Comment on above: Expected: 06/10/2021, Expires: 2 Start: 06-10-2021 End: 08-10-2021 Coagulation factor XI activity actual/normal in Platelet poor plasma by Coagulation assay FACTOR XI:C ASSAY Lab Routine Coagulopathy ([facility]) Expected: 06/10/2021, Expires: 08/10/2021 [facility] Work Phone: Comment on above: Expected: 06/10/2021, Expires: 2 Start: 06-10-2021 End: 08-10-2021 PLATELET AGGREGATION PANEL PLATELET AGGREGATION PANEL Lab Routine Coagulopathy ([facility]) Expected: 06/10/2021, Expires: 08/10/2021 [facility] Work Phone: Comment on above: Expected: 06/10/2021, Expires: 2 Start: 06-10-2021 End: 08-10-2021 PLATELET FUNCTION SCREEN PLATELET FUNCTION SCREEN Lab Routine Coagulopathy ([facility]) Expected: 06/10/2021, Expires: 08/10/2021 [facility] Work Phone: Comment on above: Expected: 06/10/2021, Expires: 2 Start: 06-10-2021 End: 08-10-2021 Prothrombin activity actual/normal in Platelet poor plasma by Coagulation assay FACTOR II:C ASSAY Lab Routine Coagulopathy ([facility]) Expected: 06/10/2021, Expires: 08/10/2021 [facility] Work Phone: Comment on above: Expected: 06/10/2021, Expires: 2 Start: 06-10-2021 End: 08-10-2021 VON WILLEBRAND DX PANEL VON WILLEBRAND DX PANEL Lab Routine Coagulopathy ([facility]) Expected: 06/10/2021, Expires: 08/10/2021 [facility] Work Phone: Comment on above: Expected: 06/10/2021, Expires: 2 Start: 05-25-2021 End: 05-25-2021 Patient encounter procedure 05/25/2021 Office Visit Pulmonology Armando Balderrama DO [address] [place] [address] [facility] Start: 02-28-2021 End: 02-28-2021 Patient encounter procedure 02/28/2021 Office Visit Pulmonology Fortunato Dean MD [address] [id number] [facility] Start: 02-05-2021 DEPRESSION ASSESSMENT DEPRESSION ASSESSMENT [facility] Start: 10-06-2020 Influenza vaccination [facility] Start: 06-28-2020 End: 06-28-2020 Patient encounter procedure 06/28/2020 Office Visit Pulmonology Fortunato Dean MD [address] [address] [phone] [facility] Start: 12-20-2018 Diabetes screen Diabetes screen [facility] Start: 03-17-2016 Screening for malignant neoplasm of cervix Cervical cancer screen [facility] Work Phone: Start: 12-20-2013 HPV TESTING HPV TESTING [facility] Start: 12-20-2004 PAP TESTING PAP TESTING [facility] Start: 12-20-2004 Screening for malignant neoplasm of cervix Cervical Cancer Screening [facility] Start: 12-20-2002 DTaP,Tdap and Td Vaccines (1 - Tdap) DTaP,Tdap and Td Vaccines (1 - Tdap) [facility] Start: 12-20-2002 DTaP/Tdap/Td vaccine (1 - Tdap) DTaP/Tdap/Td vaccine (1 - Tdap) [facility] Start: 12-20-2002 Hepatitis B Vaccine (1 of 3 - 19+ 3-dose series) Hepatitis B Vaccine (1 of 3 - 19+ 3-dose series) [facility] Start: 12-20-2002 Hepatitis B vaccine (1 of 3 - Risk 3-dose series) Hepatitis B vaccine (1 of 3 - Risk 3-dose series) [facility] Start: 12-20-2002 Urine microalbumin profile [facility] Start: 12-20-2002 Urine screening for protein Diabetes: Urine Protein Screening [facility] Start: 12-20-2001 Adult BMI Follow Up Plan Adult BMI Follow Up Plan [facility] Start: 12-20-2001 ANNUAL PCP TEAM CHRONIC DISEASE VISIT ANNUAL PCP TEAM CHRONIC DISEASE VISIT [facility] Start: 12-20-2001 Anxiety Screening Anxiety Screening [facility] Start: 12-20-2001 Depression Screening Depression Screening [facility] Start: 12-20-2001 HEPATITIS C SCREENING HEPATITIS C SCREENING [facility] Start: 12-20-2001 Hepatitis C screening [facility] Start: 12-20-2001 HIV SCREENING HIV SCREENING [facility] Start: 12-20-2001 HIV screening HIV Screening [facility] Start: 12-20-2001 Urine screening for protein Diabetic Alb to Cr ratio (uACR) test [facility] Start: 1999 COVID-19 Vaccine (1) COVID-19 Vaccine (1) [facility] [employer] Phone: Start: 12-20-1998 HIV screening HIV screen [facility] Start: 1995 COVID-19 Vaccine (1) COVID-19 Vaccine (1) [facility] [employer] Phone: Start: 1995 Depression Screen Depression Screen [facility] Start: 12-20-1993 Diabetic foot examination Diabetic foot exam [facility] Start: 12-20-1993 Glaucoma screening Diabetes: Retinopathy Screening [facility] Start: 12-20-1993 Lipid panel Lipids [facility] Start: 12-20-1989 PNEUMOCOCCAL (1 - PCV) [facility]UMOCOCCAL (1 - PCV) [facility] Start: 12-20-1989 Pneumococcal 0-64 years Vaccine (1 - PCV) Pneumococcal 0-64 years Vaccine (1 - PCV) [facility] Start: 12-20-1989 Pneumococcal 0-64 years Vaccine (1 of 2 - PPSV23) Pneumococcal 0-64 years Vaccine (1 of 2 - PPSV23) [facility] Start: 12-20-1989 Pneumococcal vaccination Pneumococcal Vaccine (1 of 2 - PCV) [facility] Start: 12-20-1988 COVID-19 VACCINE (#1) COVID-19 VACCINE (#1) [facility] Start: 12-20-1988 COVID-19 Vaccine (1) COVID-19 Vaccine (1) [facility] Start: 12-20-1984 Varicella vaccine (1 of 2 - 2-dose childhood series) Varicella vaccine (1 of 2 - 2-dose childhood series) [facility] Start: 06-19-1984 COVID-19 VACCINE (#1) COVID-19 VACCINE (#1) [facility] Start: 1983 HEPATITIS B (1 of 3 - 3-dose series) HEPATITIS B (1 of 3 - 3-dose series) [facility] Start: 1983 Hepatitis C screening [facility] ACTIGRAPHY TE STING Procedures Routine Shift work sleep disorder Poor sleep pattern 1 Occurrences starting 11/16/2021 [facility] Work Phone: Comment on above: 1 Occurrences starting 11/16/2021 Ambulatory bp mntr w /sw 24 hr+ rec scan ewa i&r AMBULATORY BP MONITORING Cardiology Routine Blood pressure instability Ordered: 07/21/2021 [facility] Work Phone: Comment on above: Ordered: 07/21/2021 Cardiovascular funct ion eval w/tilt table w/mntr TILT TABLE EVALUATION Cardiology Routine Palpitations Symptomatic bradycardia Orthostatic intolerance Ordered: 10/20/2021 [facility] Work Phone: Comment on above: Ordered: 10/20/2021 Cytology Cervical or vaginal smear or scraping study Pap Smear Pathology and Cytology Routine Well woman exam with routine gynecological exam Ordered: 11/20/2023 [facility] [employer] Work Phone: Comment on above: Ordered: 11/20/2023 End: 07-21-2022 Echocardiography ECHO Cardiology Routine Symptomatic bradycardia Blood pressure instability History of COVID-19 1 Occurrences starting 07/21/2021 until 07/21/2022 [facility] Work Phone: Comment on above: 1 Occurrences starting 07/21/2021 until 07/21/2022 EKG 12 Lead EKG 12 Lead ECG STAT 11/01/2020 4:26 PM EDT [employer] Work Phone: EKG 12 Lead EKG 12 Lead ECG STAT 04/16/2021 8:11 PM EST [employer] Work Phone: EKG 12 Lead EKG 12 Lead ECG STAT 06/21/2021 12:06 AM EDT [employer] Work Phone: Human papilloma viru s DNA [Presence] in Unspecified specimen by Probe with amplification HPV DNA probe, amplified Microbiology Routine Well woman exam with routine gynecological exam Ordered: 11/20/2023 [facility] Comment on above: Ordered: 11/20/2023 End: 10-19-2022 LUNG DIFFUSION CAPACITY (DLCO) LUNG DIFFUSION CAPACITY (DLCO) PFT Routine History of COVID-19 Post-acute sequelae of COVID-19 (PASC) SOB (shortness of breath) Chronic cough Chest discomfort Palpitation CAVANAUGH (dyspnea on exertion) Dizziness Near syncope Night sweats Orthopnea Anxiety Myalgia Pain in joint, multiple sites 1 Occurrences starting 09/19/2021 until 10/19/2022 [facility] Work Phone: Comment on above: 1 Occurrences starting 09/19/2021 until 10/19/2022 End: 10-19-2022 LUNG VOLUMES LUNG VOLUMES PFT Routine History of COVID-19 Post-acute sequelae of COVID-19 (PASC) SOB (shortness of breath) Chronic cough Chest discomfort Palpitation CAVANAUGH (dyspnea on exertion) Dizziness Near syncope Night sweats Orthopnea Anxiety Myalgia Pain in joint, multiple sites 1 Occurrences starting 09/19/2021 until 10/19/2022 [facility] Work Phone: Comment on above: 1 Occurrences starting 09/19/2021 until 10/19/2022 End: 01-05-2023 NITRIC OXIDE, EXHALED NITRIC OXIDE, EXHALED PFT Routine Moderate persistent asthma without complication SOB (shortness of breath) Post-acute sequelae of COVID-19 (PASC) 1 Occurrences starting 12/06/2021 until 01/05/2023 [facility] Work Phone: Comment on above: 1 Occurrences starting 12/06/2021 until 01/05/2023 OUTSIDE VENDOR CARDI AC OUTPATIENT EXTENDED RHYTHM RECORDING (WITHOUT TELEMETRY) OUTSIDE VENDOR CARDIAC OUTPATIENT EXTENDED RHYTHM RECORDING (WITHOUT TELEMETRY) Holter Routine Palpitations Symptomatic bradycardia Orthostatic lightheadedness Diffuse pain Blood pressure instability Decreased activity tolerance Orthostatic intolerance Moderate persistent asthma without complication Physical deconditioning Ordered: 10/20/2021 [facility] Work Phone: Comment on above: Ordered: 10/20/2021 End: 12-16-2022 PAP NAP PSG (CPAP, BILEVEL, ASV) PAP NAP PSG (CPAP, BILEVEL, ASV) Procedures Routine KATELIN on CPAP Poor compliance with CPAP treatment 1 Occurrences starting 11/16/2021 until 12/16/2022 [facility] Work Phone: Comment on above: 1 Occurrences starting 11/16/2021 until 12/16/2022 End: 12-16-2022 PAP TITRATION PSG (CPAP, BIPAP, ASV) PAP TITRATION PSG (CPAP, BIPAP, ASV) Procedures Routine KATELIN on CPAP 1 Occurrences starting 11/16/2021 until 12/16/2022 [facility] Work Phone: Comment on above: 1 Occurrences starting 11/16/2021 until 12/16/2022 End: 02-17-2022 PLATELET ELECT.HOSSEIN LOMBARDI ANDREA [facility] Work Phone: Comment on above: Once [...] sites 1 Occurrences starting 09/19/2021 until 10/19/2022 [facility] Work Phone: Comment on above: 1 Occurrences starting 09/19/2021 until 10/19/2022 End: 10-19-2022 SIX MINUTE WALK SIX MINUTE WALK PFT Routine History of COVID-19 Post-acute sequelae of COVID-19 (PASC) SOB (shortness of breath) Chronic cough Chest discomfort Palpitation CAVANAUGH (dyspnea on exertion) Dizziness Near syncope Night sweats Orthopnea Anxiety Myalgia Pain in joint, multiple sites 1 Occurrences starting 09/19/2021 until 10/19/2022 [facility] Work Phone: Comment on above: 1 Occurrences starting 09/19/2021 until 10/19/2022 SIX MINUTE WALK SIX MINUTE WALK PFT Routine History of COVID-19 Post-acute sequelae of COVID-19 (PASC) SOB (shortness of breath) Chronic cough Chest discomfort Palpitation CAVANAUGH (dyspnea on exertion) Dizziness Near syncope Night sweats Orthopnea Anxiety Myalgia Pain in joint, multiple sites 09/27/2021 8:23 AM EDT [facility] Work Phone: End: 10-19-2022 SPIROMETRY - BASELINE AND POST DILATOR SPIROMETRY - BASELINE AND POST DILATOR PFT Routine History of COVID-19 Post-acute sequelae of COVID-19 (PASC) SOB (shortness of breath) Chronic cough Chest discomfort Palpitation CAVANAUGH (dyspnea on exertion) Dizziness Near syncope Night sweats Orthopnea Anxiety Myalgia Pain in joint, multiple sites 1 Occurrences starting 09/19/2021 until 10/19/2022 [facility] Work Phone: Comment on above: 1 Occurrences starting 09/19/2021 until 10/19/2022 End: 01-05-2023 SPIROMETRY - BASELINE AND POST DILATOR SPIROMETRY - BASELINE AND POST DILATOR PFT Routine Moderate persistent asthma without complication SOB (shortness of breath) Post-acute sequelae of COVID-19 (PASC) 1 Occurrences starting 12/06/2021 until 01/05/2023 [facility] Work Phone: Comment on above: 1 Occurrences starting 12/06/2021 until 01/05/2023 End: 05-07-2024 Thyroid profile includes TSH FT4 Thyroid profile includes TSH FT4 Lab Routine 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 1 Occurrences starting 05/08/2023 until 05/07/2024 [employer] Work Phone: Comment on above: 1 Occurrences starting 05/08/2023 until 05/07/2024 End: 11-21-2024 Thyrotropin [Units/volume] in Serum or Plasma TSH Lab Routine 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 1 Occurrences starting 11/22/2023 until 11/21/2024 [employer] Work Phone: Comment on above: 1 Occurrences starting 11/22/2023 until 11/21/2024 End: 11-21-2024 Thyroxine (T4) free [Mass/volume] in Serum or Plasma T4, free Lab Routine 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 1 Occurrences starting 11/22/2023 until 11/21/2024 [facility] Comment on above: 1 Occurrences starting 11/22/2023 until 11/21/2024 End: 10-19-2022 Us chest real time w/image documentation US CHEST WALL/SOFT TISSUE Radiology Routine Post-acute sequelae of COVID-19 (PASC) Mass of left axilla 1 Occurrences starting 09/19/2021 until 10/19/2022 [facility] Work Phone: Comment on above: 1 Occurrences starting 09/19/2021 until 10/19/2022 End: 09-15-2022 Us pelvic nonobstetric image dcmtn limited/f/u US PELVIS LTD Radiology Routine Chronic RLQ pain 1 Occurrences starting 08/16/2021 until 09/15/2022 [facility] Work Phone: Comment on above: 1 Occurrences starting 08/16/2021 until 09/15/2022 End: 09-14-2022 US SOFT TISSUE ABDOMEN US SOFT TISSUE ABDOMEN Radiology Routine Chronic RLQ pain 1 Occurrences starting 08/15/2021 until 09/14/2022 [facility] Work Phone: Comment on above: 1 Occurrences starting 08/15/2021 until 09/14/2022 [facility] Immunizations Immunization Date Immunization Notes Care Provider [facility] 11-20-2019 influenza virus vaccine, H5N1, A/[place] (national stockpile) Cas Dowell MD Work Phone: [facility] 11-20-2019 influenza virus vaccine, unspecified formulation Araseli Barrett MD Work Phone: [facility] Work Phone: 11-20-2019 influenza, unspecified formulation LORAINE BURNHAM [facility] 11-06-2019 influenza virus vaccine, unspecified formulation LORAINE BURNHAM [facility] 11-06-2019 influenza, high dose seasonal, preservative-free Yan Bass MD Work Phone: [facility] 10-27-2019 influenza virus vaccine, unspecified formulation LORAINE BURNHAM [facility] 10-27-2019 influenza, injectable, quadrivalent, preservative free Yan Bass MD Work Phone: [facility] NEGATED: Highlighted row has not occurred!01-04-2023 influenza virus vaccine, unspecified formulation Selma Choe [facility] [place] Payers Date Payer Category Payer Blue Cross Blue Shield [id number] 2022 Blue Cross Blue Shie ld Managed Care - PPO [id number] 2022 Unknown [id number] .[id number] 2022 Unknown [id number] 2022 Unknown [id number] 2014 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 1.13.159.2 .7.3.317197.315 1983 Unknown [id number] 2.16.840.1.867383.3.579.2 .174 1983 Unknown [id number] 2.16.840.1.786125.3.579.2 .174 1983 Unknown [id number] 2.16.840.1.543040.3.579.2 .175 1983 Unknown [id number] 2.16.840.1.773833.3.579.2 .593 1983 Unknown [id number] 2.16.840.1.933182.3.579.2 .593 1983 Unknown [id number] 2.16.840.1.718140.3.579.2 .593 1983 Unknown [id number] 2.16.840.1.085884.3.579.2 .593 1983 Unknown [id number] 2.16.840.1.004619.3.579.2 .593 1983 Unknown [id number] 2.16.840.1.202205.3.579.2 .593 1983 Unknown [id number] 2.16.840.1.222191.3.579.2 .593 1983 Unknown [id number] 2.16.840.1.165440.3.579.2 .593 1983 Unknown [id number] 2.16.840.1.375674.3.579.2 .593 1983 Unknown [id number] 2.16.840.1.849446.3.579.2 .593 1983 Unknown [id number] 2.16.840.1.498311.3.579.2 .593 1983 Unknown [id number] 2.16.840.1.955427.3.579.2 .593 1983 Unknown [id number] 2.16.840.1.976854.3.579.2 .173 1983 Unknown [id number] 2.16.840.1.783284.3.579.2 .173 1983 Unknown [id number] 2.16.840.1.556122.3.579.2 .173 1983 Unknown [id number] 2.16.840.1.504507.3.579.2 .173 1983 Unknown [id number] 2.16.840.1.420104.3.579.2 .173 1983 Unknown [id number] 2.16.840.1.664405.3.579.2 .173 1983 Unknown [id number] 2.16.840.1.094558.3.579.2 .727 1983 Unknown [id number] 2.16.840.1.991329.3.579.2 .727 1983 Unknown [id number] 2.16.840.1.288063.3.579.2 .727 1983 Unknown [id number] 2.16.840.1.455361.3.579.2 .727 1983 Unknown [id number] 2.16.840.1.170040.3.579.2 .196 1983 Unknown [id number] 2.16.840.1.276347.3.579.2 .196 1983 Unknown [id number] 2.16.840.1.417091.3.579.2 .196 1983 Unknown [id number] 2.16.840.1.964741.3.579.2 .196 1983 Unknown [id number] 2.16.840.1.716172.3.579.2 .1259 1983 Unknown [id number] 2.16.840.1.871881.3.579.2 .1258 1983 Unknown [id number] 2.16.840.1.622401.3.579.2 .1258 1983 Unknown [id number] 2.16.840.1.118308.3.579.2 .1258 1983 Unknown [id number] 2.16.840.1.849212.3.579.2 .1258 1983 Unknown [id number] 2.16.840.1.688087.3.579.2 .9 1983 Unknown [id number] 2.16.840.1.972114.3.579.2 .1258 1983 Unknown [id number] 2.16.840.1.629614.3.579.2 .9 1983 Unknown [id number] 2.16.840.1.419646.3.579.2 .1258 1983 Unknown [id number] 2.16.840.1.179158.3.579.2 .1286 1983 Unknown [id number] 2.16.840.1.474264.3.579.2 .1285 1983 Unknown [id number] 2.16.840.1.371236.3.579.2 .1286 1959 Unknown [id number] 1.2.840.196715.1.13.239.2 .7.3.172792.315 1959 Unknown [id number] 1.2.840.852921.1.13.239.2 .7.3.840732.315 Social History Date Type Detail Facility Start: 06-13-2020 End: 04-10-2022 Tobacco smoking status NHIS Never smoker [employer] Phone: Start: 06-13-2020 End: 01-10-2022 Alcohol intake Current non-drinker of alcohol (finding) [employer] Phone: Start: 1985 Sex Assigned At Not on file [employer] Phone: Start: 05-10-2021 End: 01-30-2022 Exposure to SARS-CoV-2 (event) Not sure [facility] Start: 08-30-2020 End: 04-10-2022 Tobacco use and exposure Never used [facility] Start: 05-24-2021 End: 07-01-2021 Alcohol intake Current drinker of alcohol (finding) [facility] Start: 02-23-2014 History SDOH Alcohol Comment rarely uses alcohol [facility] Start: 1985 Sex Assigned At Female [facility] Start: 07-22-2021 End: 11-22-2023 Alcohol intake Ex-drinker (finding) [facility] Start: 09-17-2021 End: 09-27-2021 Exposure to SARS-CoV-2 (event) Unable to assess [facility] History of tobacco use Passive smoker [facility] Tobacco smoking status Never [facility] Start: 03-18-2020 End: 10-02-2022 Sex Assigned At Female [facility] Start: 03-18-2020 End: 10-02-2022 History of Social function [facility] Start: 09-26-2020 Gender identity Identifies as female gender (finding) [facility] Start: 09-26-2020 Sexual orientation Heterosexual (finding) [facility] Start: 01-16-2023 End: 11-20-2023 Alcohol intake Lifetime non-drinker (finding) [facility] [...] days [OSQ] Only a little [facility] Start: 09-10-2014 Sex Female (finding) [facility] Functional Status Date Assessment Result Facility 10-02-2023 Functional Status N/A [facility] 09-05-2022 Functional Status N/A [facility] 02-28-2022 Functional Status N/A [facility] 01-20-2022 Functional Status N/A [facility] 2021 Functional Status N/A [facility] Clinical Notes 09-06-2020 to 11-22-2023 Akila Yao MD - 11/22/2023 8:45 AM Marti Koch LPN - 11/20/2023 11:20 AM Myrtle Painting MD - 11/07/2023 10:00 AM EDTPatient InstructionsAbFuentes abbott MD - 10/01/2023 9:45 AM EDT Note Date & Type Note Facility 11-22-2023 History of Present illness Narrative REASON FOR VISIT: Leana Tran is seen in follow-up today for Hypothyroidism. HPI: Patient last seen in clinic on 05/08/23. She states she was started on compounded estrogen/progesterone/DHEA cream. She notes better mental clarity and improvement in sexual function. She is sleeping better. Energy comes and goes. She has gained weight, 8# since her last. She is following a gluten free diet, so eating healthier. She was positive for celiac antibodies. She feels sick if eating gluten(rash, diarrhea, abdominal pain). She notes dry skin, brittle nails. Still has heat/cold intolerance. She is now working day shifts. She is walking 3 miles/day with her puppy. She has diabetes and KATELIN. She notes her insurance isn't covering Ozempic. Currently taking Synthroid (MIKE) 100 mcg daily, on an empty stomach, first thing in the morning, without other medications. She initially noticed improvement with this. Thyroid ultrasound 01/16/19: Heterogenous thyroid, questionable hypoechoic nodule 8x5x3 mm on the right. Thyroid ultrasound dated May 10, 2023: Thyroid is small with a slightly heterogeneous echotexture. No nodules are identified. Right lobe measures 3.1 x 1.1 x 0.5 cm. Left lobe measures 3.0 x 0.9 x 0.9 cm. LABS: 08/22/23: TSH 1.5, TT4-8, fT3 2.42, fT4 0.84 10/06/22: TSH 4.255, fT3 2.48 06/05/22: TSH [...] 03/13/2019 3.51 2.50 - 3.90 pg/mL Final * reviewed recent labs and ultrasound with patient ROS: 12 point ROS completed, negative unless noted in HPI CURRENT MEDICATIONS Current Outpatient Medications: albuterol (PROVENTIL HFA;VENTOLIN HFA) 90 mcg/actuation inhaler, every 4 (four) hours., Disp: , Rfl: azelastine (ASTELIN) 137 mcg (0.1 %) nasal spray, SPRAY 1 SPRAY INTO EACH NOSTRIL IN THE MORNING AND BEFORE BEDTIME DIRECTED, Disp: 30 mL, Rfl: 12 baclofen (LIORESAL) [...] nostril once daily., Disp: , Rfl: fremanezumab-vfrm ([employer] 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) 225 mg/1.5 mL, INJECT 1.5 ML (225 MG TOTAL) UNDER THE SKIN EVERY 28 DAYS., Disp: 4.5 mL, Rfl: 3 lamoTRIgine (LaMICtal) 150 mg tablet, Take 1 [...] Take by mouth daily., Disp: , Rfl: rimegepant (NURTEC ODT) 75 [...] Disp: , Rfl: SYNTHROID 100 mcg tablet, TAKE 1 TABLET (100 MCG TOTAL) BY MOUTH IN THE MORNING, Disp: 90 tablet, Rfl: 3 UBRELVY 100 mg tablet, Take 100 mg by mouth once as needed (migraine) for up to 1 dose., Disp: 16 tablet, Rfl: 12 zonisamide (ZONEGRAN) 100 mg capsule, TAKE 2 CAPSULES (200 MG TOTAL) BY MOUTH IN THE MORNING., Disp: 180 capsule, Rfl: 1 PAST MEDICAL HISTORY: Past Medical History: Diagnosis Date Allergic 1990 Allergic rhinitis 1990 Anxiety Asthma Back pain 1995 Bradycardia Chest pain Clotting disorder ([facility]) 1984 COVID Depression Diabetes mellitus ([facility]) Diabetes mellitus type 2, controlled ([facility]) Eczema 2006 Elevated troponin Fatty liver GERD [...] VITALS Wt Readings from Last 3 Encounters: 11/22/23 101.5 kg (223 lb 12.8 oz) 05/08/23 97.5 kg (215 lb) 01/04/23 99.8 kg (220 lb) Body mass index is 38.42 kg/m . Vitals: 11/22/23 0901 BP: 124/84 Pulse: 59 Weight: 101.5 kg (223 lb 12.8 oz) PHYSICAL EXAM: Physical Exam Vitals reviewed. Constitutional: [...] Speech normal. Thought Content: Thought content normal. ASSESSMENT/PLAN: Patient is clinically euthyroid, some improvement in symptoms. She still struggles with fatigue and brain fog. I will check updated thyroid labs and consider T3 therapy based on her blood work. Continue brand-name Synthroid. 1. 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 female who presents for Well Women Visit Patient presents today for Annual Exam. MEDICATIONS Current Outpatient Medications Medication Instructions albuterol HFA 90 mcg/act inhaler 2 puffs, Every 4 hours PRN Azelastine HCl 137 MCG/SPRAY solution baclofen (Lioresal) 10 MG tablet 3 times daily budesonide-formoterol (Symbicort) 160-4.5 MCG/ACT inhaler 2 puffs, 2 times daily cholecalciferol (VITAMIN D-3) 5,000 Units, Daily cyanocobalamin (VITAMIN B-12) 1,000 mcg, Daily Cymbalta [address] capsule DHEA 5 mg EPINEPHrine (EPIPEN 2-ERMA IJ) Inject as directed. EPINEPHrine (Epipen) 0.3 MG/0.3ML injection syringe 0.3 MG (0.3 ML) INTRAMUSCULARLY ONCE NEEDED FOR ANAPHYLAXIS FOR 2 DOSES famotidine (Pepcid) 20 MG tablet Take by mouth fluticasone (Flonase Sensimist) 27.5 MCG/SPRAY nasal spray 2 sprays, Daily RT fremanezumab (Ajovy) 225 MG/1.5ML auto-injector No dose, route, or frequency recorded. lamoTRIgine (LaMICtal) 150 MG tablet Take by mouth. magnesium (as gluconate) (MAGONATE) 27 mg, 2 times daily montelukast (Singulair) 10 MG tablet Take by mouth. pyridostigmine (MESTINON) 180 mg, 2 times daily sertraline (ZOLOFT) 100 mg, Daily Synthroid 100 MCG tablet TAKE 1 TABLET (100 MCG TOTAL) BY MOUTH IN THE MORNING tiotropium (Spiriva Respimat) 1.25 MCG/ACT inhaler 2 puffs, Inhalation, Daily triamcinolone (Kenalog) 0.1 % cream Apply to affected areas, up to twice a day when flared, do not use one the face, groin, or underarms, 30 day supply ALLERGIES Allergies Allergen Reactions Erythromycin Shortness of breath and Swelling Other Reaction(s): Unknown Iodinated Contrast Media Anaphylaxis Other reaction(s): Unknown Does not tolerate with pre-medication Other reaction(s): Unknown Does not tolerate with pre-medication Tolerated with pre-medication on 09/22/21 Other reaction(s): Unknown Does not tolerate with pre-medication Tolerated with pre-medication on 09/22/21 Other reaction(s): Unknown Does not tolerate with pre-medication Other Reaction(s): Unknown Lavender Oil Anaphylaxis Sulfa Antibiotics Shortness of breath and Swelling Other reaction(s): Unknown Other reaction(s): Unknown Other reaction(s): Unknown Sulfamethoxazole-Trimethoprim Unknown Cant breathe Other reaction(s): Other Cant breathe Valacyclovir Anaphylaxis and Shortness of breath Zolpidem Unknown Uncontrolable limb movements Muscle spasms Fish Allergy Hives Ibuprofen Rash and Unknown Due to clotting disorder-Aleve Other reaction(s): Unknown, Unknown Due to clotting disorder-Aleve Due to clotting disorder-Aleve Other Reaction(s): Unknown Cefaclor Ceftin [Cefuroxime] Clindamycin Emgality [Galcanezumab-Gnlm] Gatifloxacin Diarrhea Menthol Hives Naproxen Angioedema Other reaction(s): Angioedema Norethindrone-Eth Estradiol Chest hurt and legs turned black -- saw Dr. Abiel London Penicillin G Benzathine Other Reaction(s): Unknown Skin Oils [Dimethicone] Sulfamethoxazole Other Reaction(s): Unknown Wellbutrin [Bupropion] Aspirin Angioedema, Rash and Unknown Other reaction(s): Angioedema, Unknown, Unknown Latex Itching, Rash, Swelling and Unknown Skin cracks and bleeds Other reaction(s): Unknown Skin cracks and bleeds Skin cracks and bleeds Other Reaction(s): Unknown Levofloxacin Rash Penicillins Itching and Rash Other reaction(s): Unknown, Unknown, Unknown Povidone-Iodine Rash Rofecoxib Rash and Unknown Other reaction(s): Unknown Shellfish-Derived Products Hives and Rash PROBLEMS Active Ambulatory Problems Diagnosis Date Noted PTSD (post-traumatic stress disorder) ([facility]) 12/24/2020 Allergic reaction to contrast dye 07/25/2021 Chronic allergic rhinitis due to pollen 12/22/2015 Anxiety 03/02/2021 Arachnoid cyst of pituitary gland 04/07/2015 Aspirin allergy 02/10/2021 Autonomic dysfunction 02/10/2021 Bleeding disorder ([facility]) 02/23/2014 Symptomatic bradycardia 12/24/2020 Cervicalgia 03/02/2021 Depression ([facility]) 12/24/2020 Type 2 diabetes mellitus with hyperglycemia, without long-term current use of insulin ([facility]) 12/24/2020 Diffuse pain 08/23/2021 Adverse food reaction 07/25/2021 Dyspareunia in female 01/12/2023 Gastroesophageal reflux disease 12/22/2015 Gross hematuria 01/12/2023 Hearing loss 12/22/2015 History of hysterectomy 02/10/2021 Hyperlipidemia ([facility]) 12/22/2015 Irritable bowel syndrome 12/22/2015 Memory difficulties 03/02/2021 Migraine without aura and without status migrainosus, not intractable ([facility]) 12/24/2020 Moderate persistent asthma without complication ([facility]) 07/25/2021 KATELIN (obstructive sleep apnea) 12/24/2020 Ovarian cyst 01/12/2023 Palpitations 10/20/2021 Decreased activity tolerance 08/23/2021 Chronic [id number] syndrome 03/02/2021 Primary hypothyroidism ([facility]) 12/22/2015 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[facility]) 04/03/2022 Right inguinal hernia 01/12/2023 Screening for endocrine disorder 06/14/2021 Subjective muscle weakness 05/24/2021 Transient diplopia 05/24/2021 Trapezius muscle spasm 03/02/2021 Urethral stricture 01/12/2023 Vitamin D deficiency 01/12/2023 Word finding difficulty 03/02/2021 Edema of both legs 04/09/2023 Allergic reaction 09/26/2023 Resolved Ambulatory Problems Diagnosis Date Noted Abdominal pain, acute, right lower quadrant 12/30/2011 Abnormal urine sediment 01/12/2023 Acute stress disorder 12/22/2015 Adenovirus infection 01/10/2022 Exacerbation of asthma ([facility]) 01/08/2022 Asthma ([facility]) 12/22/2015 Blood pressure instability 05/24/2021 Chest pain 12/24/2020 Drug reaction 07/25/2021 Generalized headache 12/22/2015 Hypersomnia with sleep apnea 03/02/2021 Orthostatic intolerance 08/23/2021 Orthostatic lightheadedness 05/24/2021 RSV (respiratory syncytial virus infection) 01/10/2022 Stress incontinence 01/12/2023 Syncope and collapse 05/24/2022 Acute non-recurrent pansinusitis 04/09/2023 Past Medical History: Diagnosis Date Abdominal pain, generalized Abnormality of plasma protein, unspecified Anxiety and depression ([facility]) Arachnoid cyst Celiac disease ([facility]) Chronic sinusitis Deaf, right Edema, peripheral Hernia, abdominal Herpes zoster without complication History of cardiac monitoring History of thyroid nodule Hormone imbalance Hot flashes due to surgical menopause Hypothyroid ([facility]) Insomnia, persistent Medication reaction Metabolic syndrome Mild persistent asthma without complication ([facility]) Myoclonic jerking, massive Paresthesia Post-COVID syndrome POTS (postural orthostatic tachycardia syndrome) Seasonal allergic rhinitis due to pollen Urinary hesitancy HISTORY PAST MEDICAL HISTORY SOCIAL HISTORY Past Medical History: Diagnosis Date Abdominal pain, generalized Abnormality of plasma protein, unspecified deficiency (easy bleeder) Anxiety and depression ([facility]) Arachnoid cyst in brain (2015) Asthma ([facility]) Celiac disease ([facility]) Chronic sinusitis Deaf, right Depression ([facility]) Dyspareunia in female Edema, peripheral Gastroesophageal reflux disease Hernia, abdominal Herpes zoster without complication History of cardiac monitoring Pt currently has cardiac heart monitor 06/27/2022 History of hysterectomy History of thyroid nodule Hormone imbalance Hot flashes due to surgical menopause Hypothyroid (CMS/HCC) Insomnia, persistent Medication reaction Metabolic syndrome Mild persistent asthma without complication (CMS/HCC) Myoclonic jerking, massive Ovarian cyst Paresthesia Post-COVID syndrome POTS (postural orthostatic tachycardia syndrome) Right inguinal hernia Seasonal allergic rhinitis due to pollen Type 2 diabetes mellitus with hyperglycemia, without long-term current use of insulin (CMS/HCC) Urinary hesitancy Vitamin D deficiency Social History Tobacco Use Smoking status: Never Smokeless tobacco: Never Substance Use Topics Alcohol use: Never Drug use: Never FAMILY HISTORY Family History Adopted: Yes Problem Relation Name Age of Onset Cancer Mother Skin cancer Mother Diabetes Mother Hypertension Mother Cervical cancer Mother Heart disease Father adopted father; biological father's hx unknown Diabetes Sister Heart disease Maternal Grandmother Aortic aneurysm Maternal Grandmother Hypertension Maternal Grandmother Skin cancer Maternal Grandmother Cancer Maternal Grandfather Cancer Paternal Grandmother Lung cancer Paternal Grandmother Melanoma Neg Hx SURGICAL HISTORY Past Surgical History: Procedure Laterality Date APPENDECTOMY 2012 SECTION, CLASSIC 2008 BTL MR ANGIOGRAM HEAD WO IV CONTRAST 03/31/2016 MR ANGIOGRAM HEAD WO IV CONTRAST OTHER SURGICAL HISTORY 2014 uterine ablation TN LAP,CHOLECYSTECTOMY 2009 TN LAPAROSCOPY W/LYSIS OF ADHESIONS 2010 SALPINGECTOMY Bilateral SEPTOPLASTY SINUS SURGERY 2011 TOTAL ABDOMINAL HYSTERECTOMY TUBAL LIGATION TYMPANOSTOMY Bilateral REVIEW OF SYSTEMS Review of Systems: Review of Systems Constitutional: Negative. HENT: Negative. Eyes: Negative. Respiratory: Negative. Cardiovascular: Negative. Gastrointestinal: Negative. Genitourinary: Negative. Musculoskeletal: Negative. Skin: Negative. Neurological: Negative. All other systems reviewed and are negative. Hematological: Negative. Endocrine: Negative. Allergic/Immunologic: Negative. OBJECTIVE Objective: Physical Exam Constitutional: Appearance: Normal appearance. She is well-developed. Genitourinary: Vulva normal. Vaginal cuff intact. Cervix is absent. Uterus is absent. Cardiovascular: Rate and Rhythm: Normal rate and regular rhythm. Abdominal: General: Bowel sounds are normal. There is no distension. Palpations: Abdomen is soft. Tenderness: There is no abdominal tenderness. There is no guarding or rebound. Musculoskeletal: General: No swelling. Normal range of motion. Right lower leg: No edema. Left lower leg: No edema. Neurological: Mental Status: She is alert and oriented to person, place, and time. Skin: General: Skin is warm and dry. Psychiatric: Mood and Affect: Mood normal. Behavior: Behavior normal. Vitals and nursing note reviewed. Exam conducted with a cadmium liquor maker present. Vitals: Estimated body mass index is 38.11 kg/m as calculated from the following: Height as of 24: 5' 4 . Weight as of this encounter: 222 lb. BP: 120/80 No LMP recorded. Patient has had a hysterectomy. ASSESSMENT & PLAN ICD-10-CM 1. PCOS (polycystic ovarian syndrome) E28.2 Progesterone DHEA US PELVIS-TRANSVAG IF INDICATED Estradiol Cortisol, free DHEA-sulfate TESTOSTERONE, FREE Testosterone, free, total Miscellaneous Lab Test Progesterone DHEA Estradiol Cortisol, free DHEA-sulfate TESTOSTERONE, FREE Testosterone, free, total Miscellaneous Lab Test 2. Well woman exam with routine gynecological exam Z01.419 Pap Smear HPV DNA probe, amplified 3. Hormone disorder E34.9 Progesterone DHEA US PELVIS-TRANSVAG IF INDICATED Estradiol Cortisol, free DHEA-sulfate TESTOSTERONE, FREE Testosterone, free, total Miscellaneous Lab Test Progesterone DHEA Estradiol Cortisol, free DHEA-sulfate TESTOSTERONE, FREE Testosterone, free, total Miscellaneous Lab Test Annual Exam: Patient presents today for an annual exam. Patient states she is doing well and has complaints of needed additional orders buderer, labs were given to pt to have obtained. Pap was obtained without difficulty. Orders Placed This Encounter Procedures HPV DNA probe, amplified US PELVIS-TRANSVAG IF INDICATED Progesterone DHEA Estradiol Cortisol, free DHEA-sulfate TESTOSTERONE, FREE Testosterone, free, total Miscellaneous Lab Test Follow Up: Patient is to return in one year for annual unless needed otherwise. Documented by Akila Koch LPN on behalf of: Rubens Tim DO documented in this encounter [facility] 11-07-2023 History of Present illness Narrative Leana [...] these episodes. 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 She was blue and her co-workers [...] up in the speech therapy Clinic in [facility]. As she has a history of sexual [...] Symbicort with spacer. Add Spiriva [facility] in [place]. Technique. We agreed she would use Symbicort [...] and skin testing. documented in this encounter [facility] 10-16-2023 Note Reminders From: CHELO Choe APRN, [place] X To: EU - Administrative; Sent: 10/16/2023 12:40:17 EDT Show up: 06/14/2024 12:40:00 EDT Subject: Reminder Message Reminder Message Please schedule for 1 year follow-up 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 Hx Cesar autoimmune thyroid disease, celiac disease. She underwent an implantable loop recorder for fpc cardiac rhythm monitoring due to syncope in June 2022. Chief Complaint: OI/ syncope. ILR Only a few episodes of near syncope since seen, blackouts . 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 High fasting glucose. May [...] Telehealth Visit: 10/10/2023 The visit was conducted buux-an-doow with the use of audio and video technology using HIPAA approved kajeetEX between patient and the provider for a [...] Unable to get long acting preparation. 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 2. Syncope. Chronic. Stable. No syncope. Presyncope. Improved with day shift. 3. ILR. Chronic. Stable. No arrhythmia. Device with good function. Macrina Wadsworth APRN PhD [facility] Nurse Practitioner Division of Cardiovascular Medicine [facility]. [facility] 10-04-2023 Note Patient Education Nephrology Dietary Guidelines [...] ? 8 oz (237 mL) of milk, tlnuton-dnntablnxfhu-ejqpb milk, and calcium-fortifiedfruit juice. Calcium-fortified means that [...] Spinach (cooked), rhubarb, beets, sweet potatoes, and [place] Citizen chard. ? Peanuts. ? Potato chips, bengali fries, and baked potatoes with skin on. ? Nuts and nut products. ? Chocolate. ? If you regularly take a diuretic medicine, make sure to eat at least 1 or 2 servings of fruits or vegetables that are high in potassium each day. These include: ? Avocado. ? Banana. ? Randall, prune, carrot, or tomato juice. ? Baked [...] fish oil, or vitamin B6. ? Take zmvz-izx-zebougv and prescription medicines only as told by your health care provider. These include suppleme (more content not included)... [facility] 10-01-2023 Instructions Fuentes Amaral MD - 10/01/2023 10:04 AM EDT Continue Amicar prior to dental extraction FFP for major surgery. RTC in 12 months - cbc, cmp documented in this encounter [facility] 10-01-2023 History of Present illness Narrative Images from the original note were not included. 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 No date: REMOVAL GALLBLADDER No date: TUBAL LIGATION HX Social History Tobacco Use Smoking status: Never Passive exposure: Past Smokeless tobacco: Never Vaping Use Vaping status: Never Used Substance Use Topics Alcohol use: Not Currently Drug use: Not Currently FAMILY HISTORY Problem Relation Age of Onset Diabetes Mother uncontrolled Hypertension Mother Heart Attack Mother First [place] at age 51 Cardiomyopathy Mother at age [...] which included preparing to see the patient, ozna-vn-bagy patient care, completing clinical documentation, performing a medically appropriate examination, ordering medications, tests, or procedures, and communicating results to the patient/family/caregiver. Fuentes Amaral MD, CPE Hematology and Oncology Services Provided at: [place], [place] Scribe Attestation: This note was scribed [...] CC: Cas Cronin documented in this encounter [facility] 10-01-2023 Note HNO ID: [id number] Author: FUENTES AMARAL MD Service: ? Author Type: Physician Type: Progress Notes Filed: 10/03/2023 07:47 Note Text: NAME: Leana Tran CLINIC NO.: [id number] DATE OF SERVICE: October 01, 2023 ([place]) [...] needed to us (more content not included)... [facility] 05-08-2023 History of Present illness Narrative [...] 2.48 She has been to referred to [facility]. Dizzy and lightheaded at times. 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 Hx Cesar autoimmune thyroid disease, celiac disease. She underwent an implantable loop recorder for terminologist cardiac rhythm monitoring due to syncope in June 2022. I saw Leana in follow up November 2022. After this, URI in November and December 2022 she had a upper respiratory infection. BP dropped to 80/40mmhg. But recently BP is stable. In December she experienced an episode of chest pain associated with cough and went to [place] ED (12/18/2022). She was treated for bronchitis. She has history of asthma. She saw Angelika Coronel APRN in the [facility] Card[facility] as an ED follow up on 12/26/2022. At that visit she complained of dizziness, near syncope and sharp left CP radiation to shoulder. Chief Complaint: Orthostatic intolerance. Dizziness and lightheaded. 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 Last [...] diagnosis was Autonomic dysfunction. Diagnoses of Chronic cpvj-YCDEJ-46 syndrome, Implantable loop recorder present, Orthostatic intolerance, and Postural dizziness with near syncope were also pertinent to this visit. Problem List Items Addressed This Visit Nervous Autonomic dysfunction Relevant Medications pyridostigmine (Mestinon) 180 mg ER tablet Orthostatic intolerance Relevant Orders Ambulatory referral to Physical Therapy Circulatory Implantable loop recorder present Other Chronic cuxj-ADXBC-64 syndrome Other Visit Diagnoses Postural dizziness with near syncope - Primary Relevant Orders Ambulatory referral to Physical Therapy OI exacerbation post back to back respiratory infections. Stop short acting pyridostigmine. Add TS 180 mg daily. Physical therapy. Monitor HR and BP RTC 6-12 months. [facility] 01-04-2023 Note Chief Complaint consultation for GERD HPI Staff 37 year old female presents on consultation from Dr. Dowell for GERD. Taking Protonix 40mg daily x 6 months. Reports some sternal chest pain, bloating and sour taste in mouth. 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 Reports EGD greater than 10 years ago with gastric ulcer and H.pylori infection. History of Present Illness 37 yo female with h/o DMII, asthma, hypothyroidism, KATELIN, anxiety/depression; referred for worsening GERD; patient reports frequent bloating and epigastric pain radiating into chest, some regurgitation; no dysphagia; sees a Application Systems Engineer that feels her frequent lung infections [...] 50 mcg/inh madeline (more content not included)... [facility] Comment on above: Result Comment: Elec [...] dysautonomia clinic she was recently seen at [facility] for chest pain loop monitor has [...] the Heart and Vascular Center at the [facility] for an evaluation of autonomic dysfunction. Chief [...] told needed a PPM . Transferred to [facility] and saw Dr. Michaud, rubber covering machine operator. Echocardiogram done (?inflammation). Discharged. Referred by Covid Clinic at [facility]. Told had autonomic issues PMH: Past Medical History: Diagnosis Date Asthma 1999 Clotting disorder ([facility]) 1983 Diabetes mellitus ([facility]) 2020 Disease of thyroid gland 2006 [...] Estradiol Chest hurt (more content not included)... [facility] 01-01-2023 Note Patient here for [facility] ED 2 weeks ago for chest [...] All other systems reviewed and are negative. [facility] 10-02-2022 Instructions Fuentes Amaral MD - 10/02/2022 9:51 AM EDT Continue Amicar prior to dentist appointment. 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 Fuentes Amaral MD, CPE Hematology and Oncology Services Provided at: [place], [place] CC: Cas Cronin documented in this encounter [facility] 09-05-2022 Hospital Discharge instructions Patient Education 09/05/2022 09:06:17 Kidney Stones, Asuz-kz-Sgvj Kidney Stones Kidney stones are rock-like masses [...] Follow these instructions at home: Medicines Take mjoi-tzk-pwjlkhv and prescription medicines only as told by [...] provider. Document Revised: 09/26/2021 Document Reviewed: 09/26/2021 [employer] Patient Education 2022 Eat Local. Follow Up Care 02/28/2022 09:04:41 With:LORAINE BURNHAM PA-C, URL Address: [address] [place] [address] When: Unknown [facility] 05-03-2022 Miscellaneous Notes Images from the original note were not included. documented in this encounter [facility] 04-26-2022 History of Present illness Narrative [...] visit. Either the patient or their legal inbound sales representative has been informed of the [...] ^Rfl: fremanezumab-vfrm subcutaneus auto-injector 225 mg/1.5 mL (CATERINAOVY)^Inject 1.5 mL subcutaneously once every month. Do [...] thrombosis. Unremarkable MRA brain and MRA neck. Quality Measurement Specialist: [facility] Transcribe Date/Time: Mar 31 2016 2:40P [...] change which could potentially contribute to headache. Quality Measurement Specialist: [facility] Transcribe Date/Time: Jun 27 2021 3:07P [...] # 1.10 - 3.70 k/uL 1.67 Absolute [place] # 0.10 - 1.20 k/uL 0.37 Absolute Eos # 0.00 - 0.44 k/uL 0.19 Basophils Absolute 0.00 - 0.20 k/uL 0.04 Absolute Immature Granulocyte 0.00 - 0.30 k/uL 0.04 Review of Systems: Review of system: unchanged from the previous visit (sleep patterns, mood, energy, appetite, stress, exercising). Physical Examination: Vital Signs: [facility] 2015 General: well appearing, in no acute distress, alert Pain Behaviors: no pain behaviors observed Neurological: Mental Status: Alert and oriented to person, place and time. Affect is normal. Speech is spontaneous and fluent without dysarthria. Short and terminologist memory, cognition and general fund of knowledge [...] up 6 months, PRN Prior Authorization: Leana Tan Marc has been previously approved for Calcitonin Gene [...] 15 minutes Bhargavi Ramesh PA-C Headache Section [facility] April 26, 2022 documented in this encounter [facility] 04-17-2022 Instructions Fuentes Amaral MD - 04/17/2022 5:31 PM EDT Keep prior appointment September documented in this encounter [facility] 04-17-2022 History of Present illness Narrative [...] Fuentes Amaral MD documented in this encounter [facility] 04-03-2022 Instructions Fuentes Amaral MD - 04/03/2022 11:06 AM EST Platelet electron microscopy pending drawn Call results when available - anticipate 2 weeks Consider functional medicine referral for DM and PCOS Keep appointment with Dr. Stephon Cronin's group for POTS Trial of Amicar prior to dentist appointment. documented in this encounter [facility] 04-03-2022 History of Present illness Narrative Images from the original note were not included. 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 Fuentes Amaral MD, CPE Hematology and Oncology Services Provided at: [place], [place] CC: Cas Cronin documented in this encounter [facility] 04-03-2022 Nurse Note Patient is still bruising. Elizabeth Rodriges MA documented in this encounter [facility] 04-03-2022 Miscellaneous Notes Images from the original note were not included. documented in this encounter [facility] 03-21-2022 Miscellaneous Notes Received call from pt stating she was not able to get her PLT lab test done in [place] d/t them no longer doing them on or fridays so she needs to move out her appt with Dr Salas so she has time to try again to get lab done. Pt transferred to front office developer to reschedule f/u appt. Manda León RN documented in this encounter [facility] 02-28-2022 Hospital Discharge instructions Patient Education [...] reconstructed. Follow these instructions at home: Take fhas-izm-iuvaleb and prescription medicines only as told by [...] 02/18/2016 Document Revised: 09/04/2018 Document Reviewed: 09/04/2018 [employer] Patient Education 2020 Eat Local. Follow Up Care 12/22/2021 14:08:59 With:LORAINE BURNHAM PA-C, URL Address: [address] [place] [address] When: Unknown [facility] 02-27-2022 History of Present illness Narrative Refill Authorization Consent Leana Tran was encountered by text or mychart message to obtain consent for pharmacist managed refill authorization. Patient gives consent to the authorization of prescriptions by a pharmacist. Tesfaye Whitman RPh 02/27/2022 documented in this encounter [facility] 02-24-2022 Miscellaneous Notes PA submitted via coverZinkoTekmeds. Kurt LEANA MARC ([place]: [id number]) Your information has been submitted to [facility]. To check for an updated outcome later, reopen this PA request from your dashboard. If [facility] has not responded to your request within 24 hours, contact [facility] at . If you think there may be a problem with your PA request, use our live chat feature at the bottom right. Vikash Oreilly RN February 24, 2022 3:16 PM documented in this encounter [facility] 02-20-2022 Miscellaneous Notes Ok with me Informed Lindsey of Dr Salas's response. Lindsey states that [place] will only except if pt was drawn on and pt was drawn on Sunday so they are sending it out today to [place], unless Dr Salas would like pt to come back in for a redraw so it can be sent to [place]. Manda León RN Colindres would be good. Received call from Melodie truong [facility] in [place] stating pt had her platelet transmission lab done there but it is a lab test that they send out to other labs and they wanted to know if Dr Salas has a preference on what lab they send it to d/t different labs running the test different ways. ZCAH: Please advise. Manda León RN documented in this encounter [facility] 02-17-2022 Miscellaneous Notes Records faxed to Dr. Cronin. Pt would like referral sent to Stephon Cronin MD @ [facility]. Lauren, will you please fax records when order is signed? Demo in your box, thanks! PSS: Please set pt up with referral to her preferred rubber covering machine operator. Thank you. Manda León RN Received call from pt stating Dr Salas told her to see rubber covering machine operator but their office needs a referral. ZACH: Order pending, please review and sign. Manda León RN documented in this encounter [facility] 02-13-2022 History of Present illness Narrative Discussed with scheduling, appointment will be rescheduled. Patient logged in late- had technical issues with Zoom. 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 Fuentes Amaral MD, [facility] Hematology and Oncology Services Provided at: [place], [place] CC: Cas Dowell documented in this encounter [facility] 02-01-2022 Miscellaneous Notes Images from the original note were not included. documented in this encounter [facility] 01-23-2022 Hospital Discharge instructions Patient Education [...] Up Care 12/22/2021 14:21:18 With:LORAINE BURNHAM Address: [address] [place] [address] Business (1) When:6 weeks Comments:Call for followup appointment in about six weeks. As discussed, PONCE Hargrove can further follow up on the left kidney abnormality noted on the kidney ultrasound. 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 [facility] 01-16-2022 History of Present illness Narrative [...] thrombosis. Unremarkable MRA brain and MRA neck. [facility] Transcribe Date/Time: Mar 31 2016 [...] change which could potentially contribute to headache. Quality Measurement Specialist: [facility] Transcribe Date/Time: Jun 27 2021 3:07P [...] visit due to nature of virtual visit. [facility] 2015 General: well appearing, in no acute distress, alert Pain Behaviors: no pain behaviors observed Neurological: Mental Status: Alert and oriented to person, place and time. Affect is normal. Speech is spontaneous and fluent without dysarthria. Short and terminologist memory, cognition and general fund of knowledge [...] 10 minutes Bhargavi Ramesh PA-C Headache Section [facility] January 16, 2022 documented in this encounter [facility] 01-02-2022 History of Present illness Narrative Sleep Study Check-In Documentation Date: January 02, 2022 Name: Leana Tran Patient was accompanied by Self. Location: [place] Latex allergy: Yes Tape allergy: No Current medications were reviewed with the patient:Yes Sleep aid taken by patient for the sleep study: [place] of sleep aid: Not Applicable Procedure was [...] results Jenny Borden documented in this encounter [facility] 2021 Evaluation + Plan note Diagnostic Tests PendingUrine Cytology ([facility]) 12/21/21 [facility] 2021 Hospital Discharge instructions Patient Education 2021 [...] Follow these instructions at home: Medicines Take bvfp-xue-xbdkmio and prescription medicines only as told by [...] or the blood stops without treatment. Take faey-qap-zwtyjln and prescription medicines only as told by your health care provider. Drink enough fluid to keep your urine clear or pale yellow. This information is not intended to replace advice given to you by your health care provider. Make sure you discuss any questions you have with your health care provider. Document Released: 01/22/2006 Document Revised: 06/18/2019 Document Reviewed: 02/24/2017 [employer] Patient Education 2020 Eat Local. Follow Up Care 11/28/2021 10:05:42 With:[facility] Address: [facility] [address] [address] Business (1) When: Unknown Comments:our production scheduler will be contacting you for follow-up [facility] 12-20-2021 Miscellaneous Notes Results left on patient voicemail. Leana Tran's bleeding disorders panel through [employer] [facility] was non-diagnostic or negative for a pathogenic variant. 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 This is a common polymorphism in the general population present in ~10% of individuals of white ancestry and ~1/3 of those of South ancestry. This polymorphism is not expected to contribute to disease risk for the patient. Please see [employer] message for further discussion. CARINE Carrillo Licensed, Certified Genetic Counselor Epic CC: Dr. Fuentes Craig documented in this encounter [facility] 12-15-2021 History of Present illness Narrative ACTIGRAPHY DEVICE # [id number] Date shipped out 12/15/2021 [employer] MAIL OUT TRACKING NUMBER [id number] [employer] RETURN TRACKING NUMBER [id number], Amber documented in this encounter [facility] 12-02-2021 History of Present illness Narrative [...] with Dr. Ian Oliver. Procedure Start Time: 08 Height 162.6 cm Weight 101.2 kg Patient [...] for Diagnosis. IV discontinued at 0928 by BRADLY. Staff involved in procedure: Heavenly Thomas, RN; Ofelia Allen RN Procedure Finish Time: 933 documented in this encounter [facility] 12-01-2021 Miscellaneous Notes Attempted to contact the patient. Left voice message. Filomena MARIE ----- Message from Micheal Perez MD sent at 11/30/2021 8:33 PM EDT ----- Regarding: Event monitor results. Please call with results. Micheal Perez MD November 30, 2021 8:33 PM documented in this encounter [facility] 11-18-2021 Instructions Fuentes Amaral MD - 11/18/2021 2:09 PM EDT 1. RTC and Repeat exam in 3 months - no labs 2. Review platelet genetics on return. 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 Fuentes Amaral MD, CPE Hematology and Oncology Services Provided at: [place], [place] CC: Cas Dowell documented in this encounter [facility] 11-16-2021 Instructions Meena Grissom MD - [...] schedule your sleep study please call the [facility] at [phone]. The [phone] phone number will be answered by the [...] If you work rotating shifts, ask your fast food services manager to schedule a natural, clockwise rotation. [...] A longer nap before reporting for a offset press operator is also beneficial. Exposure to bright light on the job can improve alertness during offset press operator work. Arrange for someone to pick you up after a offset press operator, or take a bus or cab home. [...] for insomnia. The cost is $40. Use www.[employer]/Incubator which to access the [facility] Wellness website to purchase the program [...] provider and give them the CPT code: 98720 You will be asked to wear the [...] about your actigraphy device, please call the satellite technician at: [phone] ( During Hours: 8am-4:30pm) ? -Discussed pathophysiology of Sleep paralysis, and possible triggering factors which include sleep deprivation, untreated obstructive sleep apnea. Other possible etiologies include circadian shift work,anxiety disorders and medications. - Follow up in 2 months documented in this encounter [facility] 11-16-2021 Miscellaneous Notes Images from the original note were not included. Images from the original note were not included. documented in this encounter [facility] 11-16-2021 History of Present illness Narrative Images from the original note were not included. [facility] New Patient Evaluation [...] on CPAP , her physician is at [facility]. Has a Resmed device, uses it on most days but cannot tolerate on the days she suffers from migraines. At times uses CPAP when awake.Has a full face and nasal mask. Her reported snoring, her sleep was unrestful and fragmented, on CPAP snoring has been abolished however sleep quality is still poor. Had Covid Sept 21, feels lack of energy, fatigue and sleepiness [...] or near accidents due to drowsy drivin [place] Sleepiness Scale 11/13/2021 Score 7 (No daytime [...] (Discontinued) PRIOR SLEEP STUDIES: Sleep centre at [place] (report not available at time of consultation) [...] uncontrolled Hypertension Mother Heart Attack Mother [place] at age 51 Cardiomyopathy Mother at age [...] If you work rotating shifts, ask your fast food services manager to schedule a natural, clockwise rotation. [...] A longer nap before reporting for a offset press operator is also beneficial. Exposure to bright light on the job can improve alertness during offset press operator work. Arrange for someone to pick you up after a offset press operator, or take a bus or cab home. [...] for insomnia. The cost is $40. Use www.[employer] which to access the [facility] Wellness website to purchase the program [...] which included preparing to see the patient, pwif-wr-hvmu patient care, performing a medically appropriate examination, counseling and educating the patient/family/caregiver and ordering medications/devices. documented in this encounter [facility] 11-15-2021 Miscellaneous Notes Images from the original note were not included. documented in this encounter [facility] 11-12-2021 History of Present illness Narrative [...] Fuentes Amaral MD documented in this encounter [facility] 11-07-2021 Miscellaneous Notes Order for nebulizer supplies resent to [facility]. Call to them inquiring about any additional information they may need. Landen Mahmood APRN.MACY documented in this encounter [facility] 11-07-2021 Miscellaneous Notes Contacted Shivani. Order has not been received. Discussed with Javier from [facility] lab. Order is currently being processed. Filomena RN documented in this encounter [facility] 11-03-2021 Instructions Fuentes Amaral MD - 11/03/2021 11:38 AM EDT 1. Need Mammogram results from [facility] 2. Proceed with genetic testing for platelet disorder 3. Call next week to review mammogram results documented in this encounter [facility] 11-03-2021 History of Present illness Narrative [...] workup. PLAN: 1. Need Mammogram results from [facility] 2. Proceed with genetic testing for platelet [...] which included preparing to see the patient, rjhs-xp-aiix patient care, completing clinical documentation, obtaining and/or reviewing separately obtained history, performing a medically appropriate examination, counseling and educating the patient/family/caregiver, ordering medications, tests, or procedures, independently interpreting results (not separately reported) and communicating results to the patient/family/caregiver. Fuentes Amaral MD, CPE Hematology and Oncology Services Provided at: [place], [place] CC: Cas Dowell documented in this encounter [facility] 10-30-2021 Miscellaneous Notes I don't think I need labs for her. If needed, please add lab orders for appointment on 11/03/21. Sharon Peterson Ma documented in this encounter [facility] 10-24-2021 History of Present illness Narrative VIRTUAL VISIT PROGRESS NOTE This is a virtual visit using fundfindr video visit. It required patient-provider interaction for the medical decision making as documented below. Chief complaint: Patient presents with: Allergic Rhinitis Ramon Tran is a 35 year old female [...] axillary lymphadenopathy. She is also following in [facility] in [place]. She has noticed a rash that is [...] controlled, she is following with Pulmonary and long Covid clinic She recently received iodinated contrast with pre-medication and was able to tolerate As per prior HPI: Chronic rhinitis Sinus/lung infections Longstanding history of recurrent pneumonia 1-2 times per year and recurrent sinus infections. Had sinus surgery which helped reduce sinus infections- however she has had 2 infections in the last 2 months. 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 Has had 0 ER, hospitalization and ICU [...] uncontrolled Hypertension Mother Heart Attack Mother [place] at age 51 Cardiomyopathy Mother at age [...] or contact dermatitis- advise follow-up with local Superintendent [employer] Allergic rhinitis, unspecified seasonality, unspecified trigger Comment/Plan: Well-controlled, continue Flonase and oral antihistamine Moderate persistent asthma without complication Comment/Plan: Controlled, continue follow-up with Pulmonary and Covid-19 [facility] Henny Rushing MD documented in this encounter [facility] 10-20-2021 History of Present illness Narrative [facility] Department of Cardiac Surgery VIRTUAL VIDEO VISIT [...] uncontrolled Hypertension Mother Heart Attack Mother [place] at age 51 Cardiomyopathy Mother at age [...] 5:26 PM This note was generated using Right Hemisphere voice recognition system. Please excuse any typographical errors. I spent 30 minutes with the patient; greater than 50% of the time was spent in counselling and co-ordinating the care based on my impression and plan above. documented in this encounter [facility] 10-19-2021 Instructions Bhargavi Ramesh PA-C - 10/19/2021 2:31 PM EDT Consider restart Botox PREEMPT Protocol Discontinue Emgality Start Ajovy - once monthly - wait until 11/10 to inject the first dose [facility] Home Delivery Pharmacy: [phone] Consider aimovig or vyepti Please follow up in 3 months or sooner if needed documented in this encounter [facility] 09-14-2022 History of Present illness Narrative Headache Center [...] fluticasone (FLONASE) 50 mcg/actuation nasal spray^Use 1 [place] in each nostril twice daily.^Disp: 3 Each^Rfl: [...] thrombosis. Unremarkable MRA brain and MRA neck. [facility] Measurement Special[facility] Transcribe Date/Time: Mar 31 2016 [...] change which could potentially contribute to headache. Quality Measurement Specialist: [facility] Transcribe Date/Time: Jun 27 2021 3:07P [...] Abs Lymph 1.00 - 4.00 k/uL 1.45 [place]% % 4.4 Abs [place] <0.87 k/uL 0.30 [place]% % 2.5 Abs [...] visit due to nature of virtual visit. [facility] 2015 General: well appearing, in no acute distress, alert Pain Behaviors: no pain behaviors observed Neurological: Mental Status: Alert and oriented to person, place and time. Affect is normal. Speech is spontaneous and fluent without dysarthria. Short and terminologist memory, cognition and general fund of knowledge [...] 20 minutes Bhargavi Ramesh PA-C Headache Section [facility] October 19, 2021 documented in this encounter [facility] 10-14-2021 History of Present illness Narrative [facility] Psychology Progress Note Billing codes: Keisha PSYCHOLOGY: FOLLOW-UP APPOINTMENT PROGRESS NOTE- Virtual Visit Due to the federal emergency declaration and the need for ongoing mental health services, the following visit was completed virtually and informed consent obtained orally to reduce the risk of COVID-19 exposure. Oral consent to services related to virtual visits was obtained after information was sent via fundfindr or read to patient if idemamahart not available. Leana Tran 10/14/2021 [id number] PROVIDER: Judith Valdes PSYD CPT Code: [id number] Virtual PSYTX PT &/FAMILY 45 MINS Time [...] Valdes Psy.D. Associate Staff, [facility] documented in this encounter [facility] 10-12-2021 History of Present illness Narrative Images from the original note were not included. Rheumatology Outpatient Clinic Date of Service: 10/12/2021 Patient: Leana Tran Medical Record: [id number] Primary Care Physician: Cas Dowell MD Referring [...] uncontrolled Hypertension Mother Heart Attack Mother [place] at age 51 Cardiomyopathy Mother at age [...] (FLONASE) 50 mcg/actuation nasal spray Use 1 [place] in each nostril twice daily. zonisamide (ZONEGRAN) [...] AM (Final result) Impression: IMPRESSION: See Result. Quality Measurement Specialist: ROBER Transcribe Date/Time: Sep 30 2021 2:15P... [...] In certain cases, a referral to a customer retention specialist may be required, in patients who [...] Villaseñor MD Rheumatology documented in this encounter [facility] 09-30-2021 History of Present illness Narrative [...] 2021 9:53 AM documented in this encounter [facility] 09-27-2021 History of Present illness Narrative PULM FUNCTION SMARTBLOCK: Provider: Landen Mahmood APRN.TREE TRIMMER Assisting Tech: Yanira Bryson RRT Spirometry w/BD: 1 DLCO: 1 LV - Box: 1 6 MW: 1 documented in this encounter [facility] 09-22-2021 Miscellaneous Notes Spoke with provider through secure chat-due to triage, worsening symptoms, and time of day sent patient to ED Patient stated that will head to [facility] shortly to be evaluated. Thank [...] Landen Mahmood APRN.MACY documented in this encounter [facility] 09-21-2021 History of Present illness Narrative Images from the original note were not included. Rheumatology Outpatient Clinic Date of Service: 09/21/2021 Patient: Leana Tran Medical Record: [id number] Primary Care Physician: Cas Dowell MD Referring Provider: SELF Last Rheumatology visit: None at [facility] Chief complaint: Consult (Patient states she was at [facility] on 09/19/21, seen Landen Mahmood APRN. She [...] uncontrolled Hypertension Mother Heart Attack Mother [place] at age 51 Cardiomyopathy Mother at age [...] (FLONASE) 50 mcg/actuation nasal spray Use 1 [place] in each nostril twice daily. zonisamide (ZONEGRAN) [...] Plan Orders this visit: Office Visit on 08/17/22 PHOSPHORUS INORGANIC UBRELVY 100 mg tablet baclofen [...] repeat CBC, CMP, C3, C4 ordered at [facility]. To evaluate for causes that could contribute to her pain, I will follow CBC with diff, comprehensive metabolic panel,TSH, 25-hydroxy vitamin D, vitamin B12 levels, ordered at [facility]. Additionally, because sleep apnea can [...] In certain cases, a referral to a customer retention specialist may be required, in patients who [...] which included preparing to see the patient, rpio-pv-vool patient care, completing clinical documentation, obtaining and/or [...] Time: 5:08 PM documented in this encounter [facility] 09-19-2021 Miscellaneous Notes Please help schedule fu visit in 4-6 weeks and testing please. Landen Mahmood APRN.MACY documented in this encounter [facility] 09-19-2021 Instructions Landen Mahmood APRN.CNP - 09/19/2021 3:10 PM EDT Welcome to [facility]! The 'COV' represents SARS-CoV-2, [...] [facility] Team documented in this encounter [facility] 09-19-2021 History of Present illness Narrative Images from the original note were not included. COVID [facility] Initial Evaluation Leana Tran presents to [facility] [employer] [facility] at the request of Sai Perez MD [...] (FLONASE) 50 mcg/actuation nasal spray Use 1 [place] in each nostril twice daily. zonisamide (ZONEGRAN) [...] which included preparing to see the patient, zwcj-oe-xlqg patient care, completing clinical documentation, obtaining and/or reviewing separately obtained history, performing a medically appropriate examination, counseling and educating the patient/family/caregiver, ordering medications, tests, or procedures, communicating with other HCPs (not separately reported), independently interpreting results (not separately reported), communicating results to the patient/family/caregiver, and care coordination (not separately reported). Landen Mahmood APRN.CNP September 19, 2021 2:07 PM documented in this encounter [facility] 09-16-2021 History of Present illness Narrative [facility] Psychology Progress Note Billing codes: Keisha PSYCHOLOGY: FOLLOW-UP APPOINTMENT PROGRESS NOTE- Virtual Visit Due to the federal emergency declaration and the need for ongoing mental health services, the following visit was completed virtually and informed consent obtained orally to reduce the risk of COVID-19 exposure. Oral consent to services related to virtual visits was obtained after information was sent via fundfindr or read to patient if idemamahart not available. Leana Tran 09/16/2021 [id number] PROVIDER: Judith Valdes PSYD CPT Code: [id number] Virtual PSYTX PT &/FAMILY 45 MINS Time [...] (FLONASE) 50 mcg/actuation nasal spray Use 1 [place] in each nostril twice daily. zonisamide (ZONEGRAN) [...] Valdes Psy.D. Associate Staff, [facility] documented in this encounter [facility] 09-05-2021 Hospital Discharge instructions Christine Abraham DO - 09/05/2021 4:38 PM EDT Please stop the Valtrex and Levaquin. Contact your primary care provider tomorrow to discuss if there are any other medications they would like her to be on. You can take Benadryl as needed for itching. The following attachments cannot be sent through Care Everywhere.Allergic Reaction (Algerian)documented in this encounter [facility] Phone: 08-30-2021 Instructions Ayaka Bright MD - 08/30/2021 12:03 PM EDT Go to RECOVER clinic appt Our staff will schedule in our LONG COVID SMA. Start the following supplements Vitamin D 4000 units daily Magnesium oxide 400 mg daily Curcumin (brand Meriva): 500 mg twice a day Putney 3 (fish oil) capsules 2000 mg daily (purchase a brand with high EPA and DHA concentrations) NAC (N-acetyl cystine) 600 mg twice per day Trial of gluten restricted diet. We will schedule you with our nutritionis and holistic psychotherapy See me after shared group appointments are over documented in this encounter [facility] 08-30-2021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 patient/family/caregiver, ordering medications, tests, or procedures, independently interpreting results (not separately reported) and communicating results to the patient/family/caregiver. CC: Peng Manley documented in this encounter [facility] 05-31-2021 Miscellaneous Notes Outside medical records received and scanned in for review. documented in this encounter [facility] 05-20-2021 Hospital Discharge instructions Shanna Rivas APRN [...] cannot be sent through Care Everywhere.Chest Pain (Algerian)Abdominal Pain (Algerian)documented in this encounter [employer] Phone: 04-16-2021 Hospital Discharge instructions Shanna Rivas APRN - CNP - 04/16/2021 Increase your fluid intake. Follow-up with both PCP and PLATEN DRIER OPERATOR for reevaluation. Take Reglan as prescribed. Talk to your PLATEN DRIER OPERATOR about the left ovarian cyst seen on CT as well as possible mild fluid in your fallopian tube. Take all medications as prescribed. Return to the ER for increased pain, fevers, difficulty breathing, vomiting or new or worsening signs or symptoms. The following attachments cannot be sent through Care Everywhere.Ovarian Cyst: Functional (Algerian)Nausea and Vomiting (Algerian)documented in this encounter [employer] Phone: 11-01-2020 Hospital Discharge instructions Araseli [...] through Care Everywhere.Coronavirus Disease (COVID-19): General Info (Algerian)documented in this encounter [employer] Phone: 09-06-2020 Note HNO ID: [id number] Author: Lis Moraes MD Service: ? Author [...] - Tolerated procedure well Lis Moraes MD [facility] 09-06-2020 Note HNO ID: [id number] Author: Lis Moraes MD Service: ? Author Type: Physician Type: Progress Notes Filed: 09/06/2020 3:10 PM Note Text: PROGRESS NOTE- HEADACHE SERVICE DATE: September 06, 2020 Location: [facility] Participants: patient and provider Requesting [...] bleeds - Lavender (more content not included)... [facility] Evaluation + Plan note Future Appointments Appointment Date:02/28/2022 08:30:00 AM Scheduled Provider:LORAINE BURNHAM PA-C Location:[facility] Appointment Type:URO Office Visit [facility] Evaluation + Plan note Future Appointments Appointment Date:08/30/2022 03:00:00 PM Scheduled Provider:LORAINE BURNHAM PA-C Location:[facility] Appointment Type:URO [facility] Future Appointments Appointment Date:09/11/2023 09:00:00 AM Scheduled Provider:LORAINE BURNHAM PA-C Location:[facility] Appointment Type:URO Office Visit [facility] Evaluation note Diagnosis Strain of lumbar region, initial encounter- Primary documented in this encounter [employer] Phone: evaluation note* Diagnosis COVID-19- Primary documented in this encounter [employer] Phone: evaluation note* Diagnosis Intractable nausea and vomiting- Primary Persistent vomiting Hydrosalpinx Chronic salpingitis and oophoritis Left ovarian cyst Other and unspecified ovarian cyst documented in this encounter [employer] [facility] Phone: evaluation note* Diagnosis Chest pain, unspecified type- Primary Abdominal pain, acute, right lower quadrant Abdominal pain, right lower quadrant documented in this encounter [employer] [facility] Phone: [email or web address] note* Diagnosis Urticaria- Primary Urticaria, unspecified Moderate persistent asthma with exacerbation Unspecified asthma, with exacerbation documented in this encounter [employer] Phone: evalrwbgee note* Diagnosis Coagulopathy (HCC)- Primary Other and unspecified coagulation defects [facility]* Diagnosis Screening for endocrine disorder- Primary Primary hypothyroidism Unspecified hypothyroidism documented in this encounter [facility] note* Diagnosis Screening for endocrine disorder- Primary documented in this encounter [facility] note* Diagnosis Disorder of autonomic nervous system Unspecified disorder of autonomic nervous system documented in this encounter [facility] note* Diagnosis Spasm of muscle- Primary Acute nonspecific chest pain with low risk of coronary artery disease documented in this encounter [employer] 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 note* Diagnosis Intractable chronic migraine without aura and without status migrainosus- Primary Chronic migraine without aura, with intractable migraine, so stated, without mention of status migrainosus Abnormal involuntary movement Abnormal involuntary movements [facility]* Diagnosis Allergy, initial encounter- Primary Headaches [facility]* Diagnosis Bleeding disorder (HCC)- Primary Unspecified hemorrhagic conditions Coagulopathy (HCC) Other and unspecified coagulation defects 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 note* Diagnosis History of COVID-19- Primary Symptomatic bradycardia Other specified cardiac dysrhythmias Blood pressure instability Other abnormal clinical finding [facility] Diagnosis Angioedema, initial encounter- Primary Urticaria Urticaria, unspecified Hoarseness of voice Dysphonia Allergic rhinitis, unspecified seasonality, unspecified trigger Adverse effect of drug, initial encounter Allergic reaction to contrast material, initial encounter Adverse food reaction, initial encounter Moderate persistent asthma without complication Unspecified asthma Gastroesophageal reflux disease, unspecified whether esophagitis present [facility] Diagnosis Screening for endocrine disorder Muscle spasms of lower extremity, unspecified laterality Akathisia Abnormal involuntary movements [facility] Diagnosis Chronic migraine without aura, intractable, without status migrainosus- Primary [facility]* Diagnosis Depression, unspecified depression type- Primary Anxiety Anxiety state, unspecified Intractable chronic migraine without aura and without status migrainosus Chronic migraine without aura, with intractable migraine, so stated, without mention of status migrainosus Abnormal involuntary movement Abnormal involuntary movements [facility] Diagnosis White coat syndrome with hypertension- Primary [facility] Diagnosis Intractable chronic migraine without aura and without status migrainosus Chronic migraine without aura, with intractable migraine, so stated, without mention of status migrainosus Abnormal involuntary movement Abnormal involuntary movements [facility] Diagnosis Chronic RLQ pain- Primary Abdominal pain, right lower quadrant Diastasis recti Diastasis of muscle [facility]* Diagnosis Chronic RLQ pain- Primary Abdominal pain, right lower quadrant [facility] Diagnosis Symptomatic bradycardia Other specified cardiac dysrhythmias Blood pressure instability Other abnormal clinical finding History of COVID-19 [facility] Diagnosis White coat syndrome without diagnosis of hypertension- Primary Elevated blood pressure reading without diagnosis of hypertension [facility] Diagnosis Diffuse pain- Primary Generalized pain Decreased activity tolerance Physical deconditioning Debility, unspecified Orthostatic intolerance [facility] Diagnosis Long COVID- Primary Diffuse pain Generalized pain Decreased activity tolerance PTSD (post-traumatic stress disorder) Posttraumatic stress disorder [facility] Diagnosis Allergic reaction, initial encounter- Primary documented in this encounter [facility] [employer] Phone: evaluation note* Diagnosis Depression, unspecified depression type- Primary Anxiety Anxiety state, unspecified Abnormal involuntary movement Abnormal involuntary movements [facility]* Diagnosis Post-acute sequelae of COVID-19 (PASC)- [...] of left axilla [facility]* Diagnosis Bone pain- Primary Disorder of bone and cartilage, unspecified Malaise and fatigue Other malaise and fatigue Lymphadenopathy Enlargement of lymph nodes [facility]* Diagnosis 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 [facility]* Diagnosis History of COVID-19- Primary Post-acute [...] joint, multiple sites [facility]* Diagnosis History of COVID-19 Post-acute sequelae [...] joint, multiple sites [facility]* Diagnosis History of COVID-19 Post-acute sequelae [...] joint, multiple sites [facility] Diagnosis 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 [facility] Diagnosis History of COVID-19 Post-acute [...] joint, multiple sites [facility]* Diagnosis Malaise and fatigue- Primary Other malaise and fatigue Lymphadenopathy Enlargement of lymph nodes [facility] Diagnosis Depression, unspecified depression type- Primary Anxiety Anxiety state, unspecified Abnormal involuntary movement Abnormal involuntary movements [facility]* Diagnosis Chronic migraine without aura, intractable, without status migrainosus- Primary [facility]* Diagnosis Palpitations- Primary Symptomatic bradycardia Other specified cardiac dysrhythmias Orthostatic lightheadedness Dizziness and giddiness Diffuse pain Generalized pain Blood pressure instability Other abnormal clinical finding Decreased activity tolerance Orthostatic intolerance Moderate persistent asthma without complication Unspecified asthma Physical deconditioning Debility, unspecified [facility]* Diagnosis Night sweats- Primary Generalized hyperhidrosis Lymphadenopathy Enlargement of lymph nodes Rash and nonspecific skin eruption Rash and other nonspecific skin eruption Allergic rhinitis, unspecified seasonality, unspecified trigger Moderate persistent asthma without complication Unspecified asthma [facility] Diagnosis 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) Unspecified hemorrhagic conditions [facility] Diagnosis 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 [facility] Diagnosis Breast screening- Primary Breast screening, unspecified 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 [facility] Diagnosis KATELIN on CPAP- Primary Obstructive [...] hazards to health [facility] Diagnosis Breast screening- Primary Breast screening, unspecified 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 [facility]* Diagnosis Palpitations- Primary Orthostatic intolerance Symptomatic bradycardia Other specified cardiac dysrhythmias [facility]* Diagnosis Moderate persistent asthma without complication- Primary Unspecified asthma SOB (shortness of breath) Shortness of breath Post-acute sequelae of COVID-19 (PASC) [facility]* Diagnosis Migraine without aura and without status migrainosus, not intractable- Primary Migraine without aura, without mention of intractable migraine without mention of status migrainosus [facility]* Diagnosis 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) Unspecified hemorrhagic conditions [facility]* Diagnosis No-show for appointment- Primary [facility] Diagnosis 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) Unspecified hemorrhagic conditions Coagulopathy (HCC) Other and unspecified coagulation defects [facility] Diagnosis 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) Unspecified hemorrhagic conditions [facility] Diagnosis 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 [facility] Diagnosis Migraine without aura and without status migrainosus, not intractable- Primary Migraine without aura, without mention of intractable migraine without mention of status migrainosus [facility] Diagnosis 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 HealthcareEvaluation note* Diagnosis Vocal cord dysfunction- Primary Other diseases of vocal cords documented in this encounter [facility] HealthcareEvaluation [facility]* Diagnosis Autonomic dysfunction- Primary Chest pain, unspecified type Type 2 diabetes mellitus with hyperglycemia, without long-term current use of insulin (CMS/HCC) Type 2 diabetes mellitus with hyperglycemia, without long-term current use of insulin (CMS/HCC)- Primary Chronic tqlj-[id number]-21 syndrome Moderate persistent asthma without complication (CMS/HCC) Chronic allergic rhinitis due to pollen Edema of both legs Edema Acute non-recurrent pansinusitis Allergic reaction, subsequent encounter- Primary Body mass index (BMI) 38.0-38.9, adult Type 2 diabetes mellitus with hyperglycemia, without long-term current use of insulin (CMS/HCC)- Primary Chronic edhe-OTIXJ-11 syndrome Moderate persistent asthma without complication (CMS/HCC) Chronic allergic rhinitis due to pollen Edema of both legs Edema PCOS (polycystic ovarian syndrome)- Primary Polycystic ovaries Well woman exam with routine gynecological exam Routine gynecological examination Hormone disorder Unspecified endocrine disorder documented in this encounter 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 * Strain or Sprain (Algerian) [facility] Phone: Hospital Discharge instructions* Attachments The following attachments cannot be sent through Care Everywhere. * Chest Pain (Algerian) * Restless Legs Syndrome (Algerian) [facility] Discharge instructions No data available for this section [facility] InstructionsNot on filedocumented in this encounter [facility] filed[facility] in [facility]Not [facility] filedocumented in this encounter [facility] No data available for this section [facility] reason for referral (narrative)* Diagnostic Procedure Only (Routine) - Authorized Specialty Diagnoses / Procedures Referred By Sabas harris Referred To Contact US IMAGING Diagnoses Chronic RLQ pain Procedures US SOFT TISSUE ABDOMEN US ABDOMINAL REAL TIME W/[place] [address] [place] [address] Us Imaging Referral ID Status Reason Start Date Expiration Date Visits Requested Visits Authorized [id number] Authorized Auto-Generat ed Referral 08/15/2021 09/14/2022 1 1 [facility] for referral (narrative)* Diagnostic Procedure Only (Routine) - Authorized Specialty Diagnoses / Procedures Referred By Sabas t Referred To Contact US IMAGING Diagnoses Chronic RLQ pain Procedures US PELVIS LTD US PELVIC NONOBSTETRIC IMAGE DCMTN LIMITED/F/[place] [address] [place] [address] Us Imaging Referral ID Status Reason Start Date Expiration Date Visits Requested Visits Authorized [id number] Authorized Auto-Generat ed Referral 08/16/2021 09/15/2022 1 1 [facility] for referral (narrative)* Outpatient Procedure (Routine) - Closed Specialty Diagnoses / Procedures Referred By Sabas harris Referred To Contact [facility] Diagnoses Symptomatic bradycardia Blood pressure instability History of COVID-19 Procedures ECHO ECHO TTHRC R-T 2D W/WOM-MODE COMPL SPEC&COLR D Sai Perez MD [address] [place] [address] [facility] [address] [place] [address] Referral ID Status Reason Start Date Expiration Date V isits Requested Visits Authorized [id number] Closed Auto-Generate d Referral 07/21/2021 07/21/2022 1 1 [facility] for referral (narrative)* Diagnostic Procedure Only (Routine) - Pending Review Specialty Diagnoses / Procedures Referred By Sabas t Referred To Contact US IMAGING Diagnoses Post-acute sequelae of COVID-19 (PASC) Mass of left axilla Procedures US CHEST WALL/SOFT TISSUE US CHEST REAL TIME W/IMAGE DOCUMENTATION Landen Mahmood APRN.CNP [address] [place] [address] Us Imaging Referral ID Status Reason Start Date Expiration Date Visits Requested Visits Authorized [id number] Pending Review Auto-Generat ed Referral 09/19/2021 10/19/2022 [...] multiple sites Procedures LUNG VOLUMES Landen Mahmood APRN.CNP [address] [place] [address] [facility] [address] [place], [place] [id number] Referral ID Status Reason Start Date Expiration Date Visits Requested Visits Authorized [id number] Pending Review Auto-Generat ed Referral 09/19/2021 10/19/2022 1 1 * Outpatient Procedure (Routine) - Pending Review Specialty Diagnoses / Procedures Referred By Contac t Referred To [facility] Diagnoses History of COVID-19 Post-acute sequelae of COVID-19 (PASC) SOB (shortness of breath) Chronic cough Chest discomfort Palpitation CAVANAUGH (dyspnea on exertion) Dizziness Near syncope Night sweats Orthopnea Anxiety Myalgia Pain in joint, multiple sites Procedures SPIROMETRY - BASELINE AND POST DILATOR BRNCDILAT RSPSE SPMTRY PRE&POST-BRNCDILAT ADMN Landen Mahmood APRN.CNP [address] [place] [address] [facility] [address] [place] [address] Referral ID Status Reason Start Date Expiration Date Visits Requested Visits Authorized [id number] Pending Review Auto-Generat ed Referral 09/19/2021 10/19/2022 1 1 * Outpatient Procedure (Routine) - Pending Review Specialty Diagnoses / Procedures Referred By Contac t Referred To [facility] Diagnoses History of COVID-19 Post-acute sequelae of COVID-19 (PASC) SOB (shortness of breath) Chronic cough Chest discomfort Palpitation CAVANAUGH (dyspnea on exertion) Dizziness Near syncope Night sweats Orthopnea Anxiety Myalgia Pain in joint, multiple sites Procedures SIX MINUTE WALK CARDIOPULMONARY EXERCISE STRESS Landen Mahmood APRN.CNP [address] [place] [address] [facility] [address] [place] [address] Referral ID Status Reason Start Date Expiration Date Visits Requested Visits Authorized [id number] Pending Review Auto-Generat ed Referral 09/19/2021 10/19/2022 [...] CAPACITY (DLCO) DIFFUSING CAPACITY Landen Mahmood APRN.CNP [address] [id number] [facility] [address] [place] [address] Referral ID Status Reason Start Date Expiration Date Visits Requested Visits Authorized [id number] Pending Review Auto-Generat ed Referral 09/19/2021 10/19/2022 1 1 [facility] for referral (narrative)* Outpatient Procedure (Routine) - Pending Review Specialty Diagnoses / Procedures Referred By Contac t Referred To Contact [facility] Diagnoses KATELIN on CPAP Poor compliance with CPAP treatment Procedures PAP NAP PSG (CPAP, BILEVEL, ASV) SLEEP STD REC VNTJ RESPIR ECG/HRT RATE&O2 ATTN Meena Grissom MD [address] [place] [address] [place] [address] Referral ID Status Reason Start Date Expiration Date Visits Requested Visits Authorized [id number] Pending Review Auto-Generat ed Referral 12/16/2022 1 1 [facility] for referral (narrative)* Outpatient Procedure (Routine) - Pending Review Specialty Diagnoses / Procedures Referred By Contac t Referred To Contact [facility] Diagnoses Moderate persistent asthma without complication SOB (shortness of breath) Post-acute sequelae of COVID-19 (PASC) Procedures SPIROMETRY - BASELINE AND POST DILATOR BRNCDILAT RSPSE SPMTRY PRE&POST-BRNCDILAT ADMN Jaja Cabral PA-C [address] [place] [address] [facility] [address] [place] [address] Referral ID Status Reason Start Date Expiration Date Visits Requested Visits Authorized [id number] Pending Review Auto-Generat ed Referral 12/06/2021 01/05/2023 1 1 * Outpatient Procedure (Routine) - Pending Review Specialty Diagnoses / Procedures Referred By Sabas harris Referred To Contact [facility] Diagnoses Moderate persistent asthma without complication SOB (shortness of breath) Post-acute sequelae of COVID-19 (PASC) Procedures NITRIC OXIDE, EXHALED NITRIC OXIDE GAS DETERMINATION Jaja Cabral PA-C [address] [place] [address] [facility] [address] [place] [address] Referral ID Status Reason Start Date Expiration Date Visits Requested Visits Authorized [id number] Pending Review Auto-Generat ed Referral 12/06/2021 01/05/2023 1 1 [facility] for referral (narrative)* Diagnostic Procedure Only (Routine) - Closed Specialty Diagnoses / Procedures Referred By Sabas t Referred To Contact US IMAGING Diagnoses Chronic RLQ pain Procedures US PELVIS LTD US PELVIC NONOBSTETRIC IMAGE DCMTN LIMITED/F/[place] [address] [place] [address] [place] [address] Referral ID Status Reason Start Date Expiration Date V isits Requested Visits Authorized [id number] Closed Auto-Generate d Referral 08/16/2021 09/15/2022 1 1 [facility] for referral (narrative)* Consultation (Routine) - Pending Review Specialty Diagnoses / Procedures Referred By Sabas harris Referred To Contact Speech Pathology Diagnoses Vocal cord dysfunction Procedures [place] OFFICE/OUTPATIENT NEW HIGH MDM 60 MINUTES Christy Painting MD [address] [facility] [address] [place] [address] Referral ID Status Reason Start Date Expiration Date Visits Requested Visits Authorized [id number] Pending Review Specialty Services Required 11/07/2023 05/05/2024 1 1 [facility] for visit Narrative* Outpatient Procedure (Routine) - Closed Specialty Diagnoses / Procedures Referred By Sabas harris Referred To Contact [facility] Diagnoses Symptomatic bradycardia Blood pressure instability History of COVID-19 Procedures ECHO ECHO TTHRC R-T 2D W/WOM-MODE COMPL SPEC&COLR D Sai Perez MD [address] [id number] [facility] [address] [place] [address] Referral ID Status Reason Start Date Expiration Date V isits Requested Visits Authorized [id number] Closed Auto-Generate d Referral 07/21/2021 07/21/2022 1 1 [facility] for visit Narrative* Outpatient Procedure (Routine) [...] MINUTE WALK CARDIOPULMONARY EXERCISE STRESS Landen Mahmood APRN.TREE TRIMMER [address] [place] [address] [facility] [address] [place] [address] Referral ID Status Reason Start Date Expiration Date V isits Requested Visits Authorized [id number] Closed Auto-Generate d Referral 09/19/2021 10/19/2022 1 1 [facility]* Diagnostic Procedure Only (Routine) - Closed Specialty Diagnoses / Procedures Referred By Contac t Referred To Contact US IMAGING Diagnoses Chronic RLQ pain Procedures US PELVIS LTD US PELVIC NONOBSTETRIC IMAGE DCMTN LIMITED/F/[place] [address] [place] [address] [place] [address] Referral ID Status Reason Start Date Expiration Date V isits Requested Visits Authorized [id number] Closed Auto-Generate d Referral 08/16/2021 09/15/2022 1 1 [facility] Advance Directives No Advanced Directives Records FoundDocuments on File Type Date Recorded Patient Osteologist Expl anation ACP-Advance Directive ACP-Power of Digital Product Specialist Latest Code Status on File Code Status Date Activated Date Inactivated Comments Full Code 12/30/2011 10:09 AM 12/31/2011 4:00 PM Documents on File Type Date Recorded Patient Osteologist Expl anation Advance Directive(s) 05/18/2015 10:11 AM Advance Directive(s) 05/14/2015 12:11 PM Documents on File Type Date Recorded Patient Osteologist Expl anation Advance Directive(s) 06/27/2021 1:27 PM Advance Directive(s) 05/18/2015 10:11 AM Advance Directive(s) 05/14/2015 12:11 PM Documents on File Type Date Recorded Patient Osteologist Expl anation Advance Directive(s) 06/27/2021 1:27 PM Advance Directive(s) 05/18/2015 10:11 AM Advance Directive(s) 05/14/2015 12:11 PM Documents on File Type Date Recorded Patient Osteologist Expl anation ACP-Advance Directive 01/12/2022 2:29 PM ACP-Power of Digital Product Specialist 01/12/2022 2:29 PM Latest Code Status on [...] laterality Akathisia Procedures CONSULT TO NEUROLOGY OFFICE/OUTPATIENT [facility] 60-74 MINUTES Peter Knight APRN.TREE TRIMMER [address] [place] [address] Referral ID Status Reason Start Date Expiration Date Visits Requested Visits Authorized [id number] Authorized PCP Requested Referral 06/27/2021 06/27/2022 1 1 Specialty Diagnoses / Procedures Referred By Contac t Referred To Contact Ent - Otolaryngology Diagnoses Maxillary sinus cyst Procedures CONSULT TO ENT OFFICE/OUTPATIENT [facility] 60-74 MINUTES Peter Knight APRN.TREE TRIMMER [address] [facility] [place] [address] Referral ID Status Reason Start Date Expiration Date Visits Requested Visits Authorized [id number] Authorized PCP Requested Referral 06/27/2021 06/27/2022 1 1 Specialty Diagnoses / Procedures Referred By Contac t Referred To Contact Diagnoses Coagulopathy (HCC) 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HCC) Procedures CONSULT TO MEDICAL GENETICS - GENERAL OFFICE/OUTPATIENT [facility] 60-74 MINUTES MEDICAL GENETICS COUNSELING EACH 30 MINUTES Yan Bass MD [address] [place] [address] [place] [address] [facility] [address] [place] [address] Referral ID Status Reason Start Date Expiration Date Visits Requested Visits Authorized [id number] Authorized PCP Requested Referral Auto-Generate d Referral 07/01/2021 07/01/2022 1 1 Specialty Diagnoses / Procedures Referred By Contac t Referred To Contact Psychology Diagnoses Intractable chronic migraine without aura and without status migrainosus Abnormal involuntary movement Procedures CONSULT TO PSYCHOLOGY OFFICE/OUTPATIENT [facility] 60-74 MINUTES Tracee Mcintyre MD [address] [place] [address] Referral ID Status Reason Start Date Expiration Date Visits Requested Visits Authorized [id number] Pending Review PCP Requested Referral 07/06/2021 07/06/2022 1 1 Specialty Diagnoses / Procedures Referred By Contac t Referred To Contact [facility] Diagnoses Intractable chronic migraine without aura and without status migrainosus Abnormal involuntary movement Procedures CONSULT TO PHYSICAL THERAPY PHYSICAL THERAPY EVALUATION HIGH COMPLEX 45 MINS Tracee Mcintyre MD [address] [place] [address] [facility] [place] [address] Referral ID Status Reason Start Date Expiration Date Visits Requested Visits Authorized [id number] Pending Review Auto-Generat ed Referral 07/06/2021 07/06/2022 1 1 Specialty Diagnoses / Procedures Referred By Contac t Referred To Contact Allergy Diagnoses Allergy, initial encounter Procedures CONSULT TO ALLERGY/IMMUNOLOGY OFFICE/OUTPATIENT [facility] 60-74 MINUTES Aldo Ann MD [facility] [place] [address] Referral ID Status Reason Start Date Expiration Date Visits Requested Visits Authorized [id number] Authorized PCP Requested Referral 07/14/2021 07/14/2022 1 1 Specialty Diagnoses / Procedures Referred By Contac t Referred To Contact [facility] Diagnoses History of COVID-19 Procedures CONSULT TO COVID RECOVER CLINIC Sai Perez MD [address] [id number] [facility] Rec[facility] [address] [place] [address] Referral ID Status Reason Start Date Expiration Date Visits Requested Visits Authorized [id number] Authorized PCP Requested Referral 07/21/2021 07/21/2022 1 1 Specialty Diagnoses / Procedures Referred By Contac t Referred To Contact [facility] Diagnoses Symptomatic bradycardia Blood pressure instability History of COVID-19 Procedures ECHO ECHO TTHRC R-T 2D W/WOM-MODE COMPL SPEC&COLR D Sai Perez MD [address] [place] [address] [facility] [address] [place] [address] Referral ID Status Reason Start Date Expiration Date Visits Requested Visits Authorized [id number] Authorized Auto-Generat ed Referral 07/21/2021 07/21/2022 1 1 Specialty Diagnoses / Procedures Referred By Contac t Referred To Contact Ent - Otolaryngology Diagnoses Hoarseness of voice Procedures CONSULT TO ENT OFFICE/OUTPATIENT [facility] MDM 60-74 MINUTES Henny Rushing MD [address] [address] Rc Cardenas, PhD, [facility]-COAGULATION OPERATOR [address] [place] [address] Referral ID Status Reason Start Date Expiration Date Visits Requested Visits Authorized [id number] Authorized PCP Requested Referral 07/25/2021 07/25/2022 1 1 Specialty Diagnoses / Procedures Referred By Contac t Referred To Contact Diagnoses Diffuse pain Decreased activity tolerance Physical deconditioning Procedures WELLNESS CONSULT OFFICE/OUTPATIENT [facility] MDM 60-74 MINUTES Peter Knight, LIO.TREE TRIMMER [address] [place] [address] Referral ID Status Reason Start Date Expiration Date Visits Requested Visits Authorized [id number] Authorized PCP Requested Referral 08/23/2021 08/23/2022 1 1 Specialty Diagnoses / Procedures Referred By Contac t Referred To Contact Diagnoses Long COVID PTSD (post-traumatic stress disorder) Procedures MIND/BODY HOLISTIC PSYCHOTHERAPY OFFICE/OUTPATIENT [facility] 60-74 MINUTES Ayaka Bright MD [employer] [address] [id number] Referral ID Status Reason Start Date Expiration Date Visits Requested Visits Authorized [id number] Authorized PCP Requested Referral 08/30/2021 08/30/2022 1 1 Specialty Diagnoses / Procedures Referred By Contac t Referred To Contact Diagnoses Long COVID Diffuse pain Decreased activity tolerance Procedures CONSULT TO NUTRITION SERVICES AT [facility] OFFICE/OUTPATIENT [facility] 60-74 MINUTES Ayaka Bright MD [employer] [place] [address] [phone] Referral ID Status Reason Start Date Expiration Date Visits Requested Visits Authorized [id number] Authorized PCP Requested Referral 08/30/2021 08/30/2022 1 1 Specialty Diagnoses / Procedures Referred By Contac t Referred To Contact Diagnoses Chronic migraine without aura, intractable, without status migrainosus Procedures PROVIDER ORDERED FOLLOW UP OFFICE/OUTPATIENT [facility] 60-74 MINUTES Bhargavi Ramesh PA-C [address] [place] [address] Referral ID Status Reason Start Date Expiration Date Visits Requested Visits Authorized [id number] Authorized PCP Requested Referral 10/19/2022 1 1 Specialty Diagnoses / Procedures Referred By Contac t Referred To Contact Hematology Diagnoses Lymphadenopathy Night sweats Procedures CONSULT TO HEMATOLOGY OFFICE/OUTPATIENT [facility] 60-74 MINUTES Henny Rushing MD [address] [place] [address] Referral ID Status Reason Start Date Expiration Date Visits Requested Visits Authorized [id number] Authorized PCP Requested Referral 10/24/2021 10/24/2022 1 1 Specialty Diagnoses / Procedures Referred By Contac t Referred To Contact Diagnoses Migraine without aura and without status migrainosus, not intractable Procedures PROVIDER ORDERED FOLLOW UP OFFICE/OUTPATIENT [facility] 60-74 MINUTES Bahrgavi Ramesh PA-C [address] [place] [address] Referral ID Status Reason Start Date Expiration Date Visits Requested Visits Authorized [id number] Authorized PCP Requested Referral 04/16/2022 01/16/2023 1 1 Specialty Diagnoses / Procedures Referred By Contac t Referred To Contact Cardiology Diagnoses 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) Coagulopathy (HCC) Procedures CONSULT TO CARDIOLOGY OFFICE/OUTPATIENT NEW HIGH MDM 60-74 MINUTES Fuentes Amaral MD [address] [place] [address] [place] [address] Referral ID Status Reason Start Date Expiration Date Visits Requested Visits Authorized [id number] Authorized PCP Requested Referral 02/16/2022 02/16/2023 1 1 Referral ID Status Reason Start Date Expiration Date Visits Requested Visits Authorized [id number] Authorized PCP Requested Referral 10/27/2022 04/26/2023 1 [...] Comments Allergic Reaction Unknown trigger, 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 Pt used epi-pen prior to arrival and reports feeling short of breath Reason Comments surgery clearence Reason Comments Adrenal Specialty Diagnoses / Procedures Referred By Contac t Referred To Contact Endocrinology Diagnoses Symptomatic bradycardia Blood pressure instability Procedures CONSULT TO ENDOCRINOLOGY OFFICE/OUTPATIENT NEW HIGH MDM 60-74 MINUTES Peter Knight, GAS COMBUSTION ENGINEER.TREE TRIMMER [address] [place] [address] Referral ID Status Reason Start Date Expiration Date V isits Requested Visits Authorized [id number] Closed PCP Requested Referral 05/24/2021 05/24/2022 1 [...] CONSULT TO MEDICAL GENETICS - GENERAL OFFICE/OUTPATIENT [facility] 60-74 MINUTES MEDICAL GENETICS COUNSELING EACH 30 MINUTES Yan Bass MD [address] [place] [address] [place] [address] [facility] [address] [place] [address] Referral ID Status Reason Start Date Expiration Date V isits Requested Visits Authorized [id number] Closed PCP Requested Referral Auto-Generated Referral 07/01/2021 07/01/2022 1 1 Reason Comments Coagulopathy Specialty Diagnoses / Procedures Referred By Contac t Referred To Contact Cardiology Diagnoses Symptomatic bradycardia Blood pressure instability Procedures CONSULT TO CARDIOLOGY OFFICE/OUTPATIENT [facility] 60-74 MINUTES Peter Knight APRN.CNP [facility] [place] [address] Referral ID Status Reason Start Date Expiration Date V isits Requested Visits Authorized [id number] Closed PCP Requested Referral 05/24/2021 05/24/2022 1 1 Reason Comments Allergies Asthma Reason Comments Follow Up Chronic Migraine Reason Comments Consult Specialty Diagnoses / Procedures Referred By Contac t Referred To Contact Psychology Diagnoses Intractable chronic migraine without aura and without status migrainosus Abnormal involuntary movement Procedures CONSULT TO PSYCHOLOGY OFFICE/OUTPATIENT [facility] 60-74 MINUTES Tracee Mcintyre MD [address] [place] [address] Referral ID Status Reason Start Date Expiration Date Visits Requested Visits Authorized [id number] Pending Review PCP Requested Referral 07/06/2021 07/06/2022 1 1 Reason Comments BP 24 Hour Monitor Evaluation Reason Comments PT Eval Specialty Diagnoses / Procedures Referred By Contac t Referred To Contact [facility] Diagnoses Intractable chronic migraine without aura and without status migrainosus Abnormal involuntary movement Procedures CONSULT TO PHYSICAL THERAPY PHYSICAL THERAPY EVALUATION [facility] COMPLEX 45 MINS Tracee Mcintyre MD [address] [id number] [facility] [place] [address] Referral ID Status Reason Start Date Expiration Date V isits Requested Visits Authorized [id number] Authorized 02/05/2021 02/04/2022 99 99 Reason Comments [...] NEW HIGH MDM 60-74 MINUTES Peter Knight APRN.TREE TRIMMER [address] [place] [address] Referral ID Status Reason Start Date Expiration Date V isits Requested Visits Authorized [id number] Closed PCP Requested Referral 08/23/2021 08/23/2022 1 1 Reason Comments Allergic Reaction Onset prior to arriv al. Pt reports her face is burning and feels short of breath. 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 Comments Db2 Dba - Other Reason Comments New Specialty Diagnoses / Procedures Referred By Contac t Referred To Contact [facility] Diagnoses History of COVID-[address] [facility] Sai Perez MD [address] [place] [address] [facility] [address] [place] [address] Referral ID Status Reason Start Date Expiration Date V isits Requested Visits Authorized [id number] Closed PCP Requested Referral 07/21/2021 07/21/2022 1 [...] DIFFUSION CAPACITY (DLCO) DIFFUSING CAPACITY Landen Mahmood APRN.TREE TRIMMER [address] [place] [address] [address] [place] [address] Referral ID Status Reason Start Date Expiration Date V isits Requested Visits Authorized [id number] Closed Auto-Generate d Referral 09/19/2021 10/19/2022 1 [...] BRNCDILAT RSPSE SPMTRY PRE&POST-BRNCDILAT ADMN Landen Mahmood APRN.TREE TRIMMER [address] [place] [address] [address] [place], [place] [id number] Referral ID Status Reason Start Date Expiration Date V isits Requested Visits Authorized [id number] Closed Auto-Generate d Referral 09/19/2021 10/19/2022 1 [...] LUNG VOLUMES W/WO AIRWAY RESIST Landen Mahmood APRN.TREE TRIMMER [address] [place] [address] [address] [place] [address] Referral ID Status Reason Start Date Expiration Date V isits Requested Visits Authorized [id number] Closed Auto-Generate d Referral 09/21/2021 02/04/2022 1 1 Reason Comments Radio Gen A21 Reason Comments discuss test results Reason Comments Follow Up Chronic Migraine Reason Comments Palpitations Reason Comments Allergic Rhinitis Asthma Reason Comments coagulpathy Reason Comments Established Patient Reason Comments Appointment Download Pap Therapy Follow UP Reason Comments Db2 Dba - Other Download Reason Comments Sleep Apnea Reason Comments Breast screening Reason Comments Patient Update Reason Comments Follow Up Migraine Specialty Diagnoses / Procedures Referred By Sabas harris Referred To Contact Diagnoses Chronic migraine without aura, intractable, without status migrainosus Procedures PROVIDER ORDERED FOLLOW UP OFFICE/OUTPATIENT NEW HIGH MDM 60-74 MINUTES Bhargavi Ramesh PA-C [address] [place] [id number] Referral ID Status Reason Start Date Expiration Date V isits Requested Visits Authorized [id number] Closed PCP Requested Referral 01/18/2022 10/19/2022 1 [...] up Specialty Diagnoses / Procedures Referred By Sabas harris Referred To Contact Diagnoses Migraine without aura and without status migrainosus, not intractable Procedures PROVIDER ORDERED FOLLOW UP OFFICE/OUTPATIENT NEW HIGH MDM 60-74 MINUTES Bhargavi Ramesh PA-C [address] [place] [address] Referral ID Status Reason Start Date Expiration Date V isits Requested Visits Authorized [id number] Closed PCP Requested Referral 04/16/2022 01/16/2023 1 [...] etc. Specialty Diagnoses / Procedures Referred By Contac t Referred To Contact Allergy Diagnoses Allergic reaction, subsequent encounter Procedures [place] OFFICE/OUTPATIENT NEW HIGH MDM 60 MINUTES Cas Dowell MD [address] [place] [address] Christy Painting MD [address] [place] [address] Referral ID Status Reason Start Date Expiration Date Visits Requested Visits Authorized [id number] Pending Review Specialty Services Required 09/26/2023 03/24/2024 1 1 Reason Comments Well Women Visit Ordered Prescriptions (unrec ognized section and content) [...] (New Bag - Prov ider: Nicole Smith RN)1987 (Stopped - Provider: Nicole Smith RN) diphenhydrAMINE (BENADRYL) injection 25 mg (COMPLETED) 25 mg, IntraVENous, ONCE, On 04/16/21 at 2200, For 1 dose 2221 (Given - Provid er: Luisana Reeder, CYNTHIA) famotidine (PEPCID) injection 20 mg (COMPLETED) 20 [...] section and content) DATE CREATED AUTHOR 03/08/2021 [facility] DATE CREATED AUTHOR AUTHOR'S ORGANIZ ATION 04/26/2021 [facility] DATE CREATED AUTHOR AUTHOR'S ORGANIZ ATION 07/27/2021 [facility] DATE CREATED AUTHOR AUTHOR'S ORGANIZ ATION 12/22/[address] [facility] DATE CREATED AUTHOR AUTHOR'S ORGANIZ ATION 04/07/2022 [facility] DATE CREATED AUTHOR AUTHOR'S ORGANIZ ATION 06/17/[address] [facility] DATE CREATED AUTHOR AUTHOR'S ORGANIZ ATION 12/19/2022 [facility] DATE CREATED AUTHOR AUTHOR'S ORGANIZ ATION 10/05/2023 [facility] DATE CREATED AUTHOR AUTHOR'S ORGANIZ ATION 10/18/2023 [facility] DATE CREATED AUTHOR AUTHOR'S ORGANIZ ATION 10/31/2023 [facility] DATE CREATED AUTHOR AUTHOR'S ORGANIZ ATION 11/20/2023 [facility] DATE CREATED AUTHOR AUTHOR'S ORGANIZ ATION 11/22/2023 [facility] DATE CREATED AUTHOR AUTHOR'S ORGANIZ ATION 11/24/2023 [facility] Care Teams (unrecognized sec tion and content) Inletter Relationship Specialty Start Date End Date Cas Dowell MD PCP - General 09/04/11 Inletter Relationship Specialty Start Date End Date Csa Dowell MD PCP - General 09/04/11 Inletter Relationship Specialty Start Date End Date Cas Dowell PCP - General Family Practice 02/20/14 Inletter Relationship Specialty Start Date End Date Cas Dowell MD PCP - General 09/04/11 Inletter Relationship Specialty Start Date End Date Cas Dowell PCP - General Family Practice 02/20/14 Inletter Relationship Specialty Start Date End Date Cas Dowell PCP - General Family Practice 02/20/14 Inletter Relationship Specialty Start Date End Date Cas Dowell PCP - General Family Practice 02/20/14 Inletter Relationship Specialty Start Date End Date Cas Dowell PCP - General Family Practice 02/20/14 Inletter Relationship Specialty Start Date End Date Cas Dowell PCP - General Family Practice 02/20/14 Inletter Relationship Specialty Start Date End Date Cas Dowell PCP - General Family Practice 02/20/14 Inletter Relationship Specialty Start Date End Date Cas Dowell PCP - General Family Practice 02/20/14 Inletter Relationship Specialty Start Date End Date Cas Dowell MD PCP - General 09/04/11 Inletter Relationship Specialty Start Date End Date Cas Dowell PCP - General Family Practice 02/20/14 Inletter Relationship Specialty Start Date End Date NadCas howe PCP - General Family Practice 02/20/14 Inletter Relationship Specialty Start Date End Date GabrielaCas almonte PCP - General Family Practice 02/20/14 Inletter Relationship Specialty Start Date End Date NadCas howe PCP - General Family Practice 02/20/14 Inletter Relationship Specialty Start Date End Date NadelCas almonte PCP - General Family Practice 02/20/14 Inletter Relationship Specialty Start Date End Date NadelCas almonte PCP - General Family Practice 02/20/14 Inletter Relationship Specialty Start Date End Date GabrielaCas almonte PCP - General Family Practice 02/20/14 Inletter Relationship Specialty Start Date End Date GabrielaCas almonte PCP - General Family Practice 02/20/14 Sai Perez MD [address] [place] [address] Primary Staff Physician Cardiology 07/21/21 Inletter Relationship Specialty Start Date End Date GabrielaCas almonte PCP - General Family Practice 02/20/14 Sai Perez MD [address] [place] [address] Primary Staff Physician Cardiology 07/21/21 Inletter Relationship Specialty Start Date End Date Cas Dowell PCP - General Family Practice 02/20/14 Sai Perez MD [address] [place] [address] Primary Staff Physician Cardiology 07/21/21 Inletter Relationship Specialty Start Date End Date Cas Dowell PCP - General Family Practice 02/20/14 Inletter Relationship Specialty Start Date End Date Cas Dowell PCP - General Family Practice 02/20/14 Sai Perez MD [address] [place] [address] Primary Staff Physician Cardiology 07/21/21 Inletter Relationship Specialty Start Date End Date Cas Dowell PCP - General Family Practice 02/20/14 Sai Perez MD [address] [place] [address] Primary Staff Physician Cardiology 07/21/21 Inletter Relationship Specialty Start Date End Date Cas Dowell PCP - General Family Practice 02/20/14 Sai Perez MD [address] [place] [address] Primary Staff Physician Cardiology 07/21/21 Rubens Tim [address] [place] [address] [address] [place], [place] [address] Referring PLATEN DRIER OPERATOR 08/05/21 Inletter Relationship Specialty Start Date End Date Cas Dowell PCP - General Family Practice 02/20/14 Sai Perez MD [address] [place] [address] Primary Staff Physician Cardiology 07/21/[address], [place] 1759211 Referring PLATEN DRIER OPERATOR 08/05/21 Inletter Relationship Specialty Start Date End Date Cas Dowell PCP - General Family Practice 02/20/14 Sai Perez MD [address] [place] [address] Primary Staff Physician Cardiology 07/21/[address], [facility]11 Referring PLATEN DRIER OPERATOR 08/05/21 Inletter Relationship Specialty Start Date End Date Cas Dowell PCP - General Family Practice 02/20/14 Sai Perez MD [address] [place] [address] Primary Staff Physician Cardiology 07/21/[address], [facility]11 Referring PLATEN DRIER OPERATOR 08/05/21 Inletter Relationship Specialty Start Date End Date Cas Dowell PCP - General Family Practice 02/20/14 Sai Perez MD [address] [place] [address] Primary Staff Physician Cardiology 07/21/[address], [place] [id number] Referring PLATEN DRIER OPERATOR 08/05/21 Inletter Relationship Specialty Start Date End Date Cas Dowell PCP - General Family Practice 02/20/14 Sai Perez MD [address] [place] [address] Primary Staff Physician Cardiology 07/21/21 Rubens Tim [address] [place] [address] Referring PLATEN DRIER OPERATOR 08/05/21 Inletter Relationship Specialty Start Date End Date Cas Dowell PCP - General Family Practice 02/20/14 Sai Perez MD [address] [place] [address] Primary Staff Physician Cardiology 07/21/21 Rubens Tim, [address] [facility] [place] [address] Referring PLATEN DRIER OPERATOR 08/05/21 Inletter Relationship Specialty Start Date End Date Cas Dowell PCP - General Family Practice 02/20/14 Sai Perez MD [address] [place] [address] Primary Staff Physician Cardiology 07/21/21 Rubens Tim, DO [address] [place], [place] [address] Referring PLATEN DRIER OPERATOR 08/05/21 Inletter Relationship Specialty Start Date End Date Cas Dowell PCP - General Family Practice 02/20/14 Sai Perez MD [address] [place] [address] Primary Staff Physician Cardiology 07/21/21 Rubens Tim, DO [address] [place] [address] Referring PLATEN DRIER OPERATOR 08/05/21 Inletter Relationship Specialty Start Date End Date Cas Dowell PCP - General Family Practice 02/20/14 Sai Perez MD [address] [place] [address] Primary Staff Physician Cardiology 07/21/21 Rubens Tim, DO [address] [facility] [address] [place], [facility]11 Referring PLATEN DRIER OPERATOR 08/05/21 Inletter Relationship Specialty Start Date End Date Cas Dowell PCP - General Family Practice 02/20/14 Sai Perez MD [address] [place] [address] Primary Staff Physician Cardiology 07/21/21 Rubens Tim, DO [address] [facility] [address] [place], [facility]11 Referring PLATEN DRIER OPERATOR 08/05/21 Inletter Relationship Specialty Start Date End Date Cas Dowell MD PCP - General 09/04/11 Inletter Relationship Specialty Start Date End Date Cas Dowell PCP - General Family Practice 02/20/14 Sai Perez MD [address] [place] [address] Primary Staff Physician Cardiology 07/21/21 Rubens Tim, DO [address] [place], [place] [address] Referring PLATEN DRIER OPERATOR 08/05/21 Inletter Relationship Specialty Start Date End Date Cas Dowell PCP - General Family Practice 02/20/14 Sai Perez MD [address] [place] [address] Primary Staff Physician Cardiology 07/21/21 Rubens Tim, DO [address] [place], [facility]11 Referring PLATEN DRIER OPERATOR 08/05/21 Inletter Relationship Specialty Start Date End Date Cas Dowell PCP - General Family Practice 02/20/14 Sai Perez MD [address] [place] [address] Primary Staff Physician Cardiology 07/21/21 Rubens Tim, DO [address] [place] [address] Referring PLATEN DRIER OPERATOR 08/05/21 Inletter Relationship Specialty Start Date End Date Cas Dowell PCP - General Family Practice 02/20/14 Sai Perez MD [address] [place] [address] Primary Staff Physician Cardiology 07/21/21 Rubens Tim, DO [address] [place] [address] Referring PLATEN DRIER OPERATOR 08/05/21 Inletter Relationship Specialty Start Date End Date Cas Dowell PCP - General Family Practice 02/20/14 Sai Perez MD [address] [place] [address] Primary Staff Physician Cardiology 07/21/21 Rubens Tim, [address] [place], [place] [address] Referring PLATEN DRIER OPERATOR 08/05/21 Inletter Relationship Specialty Start Date End Date Cas Dowell PCP - General Family Practice 02/20/14 Sai Perez MD [address] [place] [address] Primary Staff Physician Cardiology 07/21/21 Rubens Tim, DO [address] [place] [address] Referring PLATEN DRIER OPERATOR 08/05/21 Inletter Relationship Specialty Start Date End Date Cas Dowell PCP - General Family Practice 02/20/14 Sai Perez MD [address] [place] [address] Primary Staff Physician Cardiology 07/21/21 Rubens Tim, DO [address] [place] [address] Referring PLATEN DRIER OPERATOR 08/05/21 Inletter Relationship Specialty Start Date End Date Cas Dowell PCP - General Family Practice 02/20/14 Sai Perez MD [address] [place] [address] Primary Staff Physician Cardiology 07/21/21 Rubens Tim, DO [address] [place] [address] Referring PLATEN DRIER OPERATOR 08/05/21 Inletter Relationship Specialty Start Date End Date Cas Dowell PCP - General Family Practice 02/20/14 Sai Perez MD [address] [place] [address] Primary Staff Physician Cardiology 07/21/21 Rubens Tim, DO [address] [place] [address] Referring PLATEN DRIER OPERATOR 08/05/21 Inletter Relationship Specialty Start Date End Date Cas Dowell PCP - General Family Practice 02/20/14 Sai Perez MD [address] [place] [address] Primary Staff Physician Cardiology 07/21/21 Rubens Tim, DO [address] [place] [address] Referring PLATEN DRIER OPERATOR 08/05/21 Inletter Relationship Specialty Start Date End Date Cas Dowell PCP - General Family Practice 02/20/14 Sai Perez MD [address] [place] [address] Primary Staff Physician Cardiology 07/21/21 Rubens Tim, DO [address] [place] [address] Referring PLATEN DRIER OPERATOR 08/05/21 Inletter Relationship Specialty Start Date End Date Cas Dowell PCP - General Family Practice 02/20/14 Sai Perez MD [address] [place] [address] Primary Staff Physician Cardiology 07/21/21 Rubens Tim, DO [address] [place], [place] [address] Referring PLATEN DRIER OPERATOR 08/05/21 Inletter Relationship Specialty Start Date End Date Cas Dowell PCP - General Family Medicine 02/20/14 Sai Perez MD [address] [place] [address] Primary Staff Physician Cardiology 07/21/21 Rubens Tim, DO [address] [place], [facility]11 Referring PLATEN DRIER OPERATOR 08/05/21 Inletter Relationship Specialty Start Date End Date Cas Dowell PCP - General Family Medicine 02/20/14 Sai Perez MD [address] [place] [address] Primary Staff Physician Cardiology 07/21/21 Rubens Tim, DO [address] [place], [facility]11 Referring PLATEN DRIER OPERATOR 08/05/21 Inletter Relationship Specialty Start Date End Date Cas Dowell PCP - General Family Medicine 02/20/14 Sai Perez MD [address] [place] [address] Primary Staff Physician Cardiology 07/21/21 Rubens Tim, DO [address] [place] [address] Referring PLATEN DRIER OPERATOR 08/05/21 Inletter Relationship Specialty Start Date End Date Cas Dowell PCP - General Family Medicine 02/20/14 Sai Perez MD [address] [place] [address] Primary Staff Physician Cardiology 07/21/21 Rubens Tim, DO [address] [place], [facility]11 Referring PLATEN DRIER OPERATOR 08/05/21 Inletter Relationship Specialty Start Date End Date Cas Dowell PCP - General Family Medicine 02/20/14 Sai Perez MD [address] [place] [address] Primary Staff Physician Cardiology 07/21/21 Rubens Tim, DO [address] [place], [facility]11 Referring PLATEN DRIER OPERATOR 08/05/21 Inletter Relationship Specialty Start Date End Date Cas Dowell PCP - General Family Medicine 02/20/14 Sai Perez MD [address] [place] [address] Primary Staff Physician Cardiology 07/21/21 Rubens Tim, DO [address] [address] Referring PLATEN DRIER OPERATOR 08/05/21 Inletter Relationship Specialty Start Date End Date Cas Dowell PCP - General Family Medicine 02/20/14 Sai Perez MD [address] [place] [address] Primary Staff Physician Cardiology 07/21/21 Rubens Tim, DO [address] [place] [address] Referring PLATEN DRIER OPERATOR 08/05/21 Inletter Relationship Specialty Start Date End Date Cas Dowell PCP - General [facility] Medicine 02/20/14 Sai Perez MD [address] [place] [address] Primary Staff Physician Cardiology 07/21/21 Rubens Tim, DO [address] [place], [facility]11 Referring PLATEN DRIER OPERATOR 08/05/21 Inletter Relationship Specialty Start Date End Date Cas Dowell PCP - General Family Medicine 02/20/14 Sai Perez MD [address] [place] [address] Primary Staff Physician Cardiology 07/21/21 Rubens Tim, DO [address] [place] [address] Referring PLATEN DRIER OPERATOR 08/05/21 Inletter Relationship Specialty Start Date End Date Cas Dowell PCP - General Family Medicine 02/20/14 Sai Perez MD [address] [place] [address] Primary Staff Physician Cardiology 07/21/21 Rubens Tim, DO [address] [place] [address] Referring PLATEN DRIER OPERATOR 08/05/21 Inletter Relationship Specialty Start Date End Date Cas Dowell PCP - General Family Medicine 02/20/14 Sai Perez MD [address] [place] [address] Primary Staff Physician Cardiology 07/21/21 Rubens Tim, DO [address] [place], [facility]11 Referring PLATEN DRIER OPERATOR 08/05/21 Inletter Relationship Specialty Start Date End Date Cas Dowell PCP - General Family Medicine 02/20/14 Sai Perez MD [address] [place] [address] Primary Staff Physician Cardiology 07/21/21 Rubens Tim, DO [address] [place] [address] Referring PLATEN DRIER OPERATOR 08/05/21 Inletter Relationship Specialty Start Date End Date Cas Dowell PCP - General Family Medicine 02/20/14 Sai Perez MD [address] [place] [address] Primary Staff Physician Cardiology 07/21/21 Rubens Tim, DO [address] [place] [address] Referring PLATEN DRIER OPERATOR 08/05/21 Inletter Relationship Specialty Start Date End Date Cas Dowell MD PCP - General 09/04/11 Inletter Relationship Specialty Start Date End Date Cas Dowell PCP - General Family Medicine 02/20/14 Sai Perez MD [address] [place] [address] Primary Staff Physician Cardiology 07/21/21 Rubens Tim, DO [address] [place], [place] [address] Referring PLATEN DRIER OPERATOR 08/05/21 Inletter Relationship Specialty Start Date End Date Cas Dowell PCP - General Family Medicine 02/20/14 Sai Perez MD [address] [place] [address] Primary Staff Physician Cardiology 07/21/21 Rubens Tim, DO [address] [place], [place] [address] Referring PLATEN DRIER OPERATOR 08/05/21 Inletter Relationship Specialty Start Date End Date Cas Dowell PCP - General Family Medicine 02/20/14 Sai Perez MD [address] [place] [address] Primary Staff Physician Cardiology 07/21/21 Rubens Tim, DO [address] [place] [address] Referring PLATEN DRIER OPERATOR 08/05/21 Inletter Relationship Specialty Start Date End Date Cas Dowell PCP - General Family Medicine 02/20/14 Sai Perez MD [address] [place] [address] Primary Staff Physician Cardiology 07/21/21 Rubens Tim, DO [address] [place], [facility]11 Referring PLATEN DRIER OPERATOR 08/05/21 Inletter Relationship Specialty Start Date End Date Cas Dowell PCP - General [facility] Medicine 02/20/14 Sai Perez MD [address] [place] [address] Primary Staff Physician Cardiology 07/21/21 Rubens Tim, DO [address] [place], [facility]11 Referring PLATEN DRIER OPERATOR 08/05/21 Inletter Relationship Specialty Start Date End Date Cas Dowell PCP - General Family Medicine 02/20/14 Sai Perez MD [address] [place] [address] Primary Staff Physician Cardiology 07/21/21 Rubens Tim, DO [address] [place] [address] Referring PLATEN DRIER OPERATOR 08/05/21 Inletter Relationship Specialty Start Date End Date Cas Dowell PCP - General Family Medicine 02/20/14 Sai Perez MD [address] [place], [place] [address] Primary Staff Physician Cardiology 07/21/21 Rubens Tim, DO [address] [place] [address] Referring PLATEN DRIER OPERATOR 08/05/21 Inletter Relationship Specialty Start Date End Date Cas Dowell PCP - General Family Medicine 02/20/14 Sai Perez MD [address] [place] [address] Primary Staff Physician Cardiology 07/21/21 Rubens Tim, DO [address] [place], [place] [address] Referring PLATEN DRIER OPERATOR 08/05/21 Inletter Relationship Specialty Start Date End Date Cas Dowell PCP - General Family Medicine 02/20/14 Sai Perez MD [address] [place] [address] Primary Staff Physician Cardiology 07/21/21 Rubens Tim, DO [address] [place], [facility]11 Referring PLATEN DRIER OPERATOR 08/05/21 Inletter Relationship Specialty Start Date End Date Cas Dowell PCP - General Family Medicine 02/20/14 Sai Perez MD [address] [place], [place] [address] Primary Staff Physician Cardiology 07/21/21 Rubens Tim DO [address] [place] [address] [place] [address] Referring PLATEN DRIER OPERATOR 08/05/21 Inletter Relationship Specialty Start Date End Date Cas Dowell MD [address] [place] [address] PCP - General Family Medicine 11/18/20 Inletter Relationship Specialty Start Date End Date Cas Dowell MD PCP - General Family Medicine 12/06/22 Inletter Relationship Specialty Start Date End Date Cas Dowell MD [address] [place] [address] PCP - General Family Medicine 11/18/20 Inletter Relationship Specialty Start Date End Date Cas Dowell PCP - General Family Medicine 02/20/14 Sai Perez MD [address] [place], [place] [address] Primary Staff Physician Cardiology 07/21/21 Rubens Tim DO [address] [place], [place] [address] [address] Referring Buffet Runner 08/05/21 Inletter Relationship Specialty Start Date End Date Cas Dowell PCP - General Family Medicine 02/20/14 Sai Perez MD [address] [place] [address] Primary Staff Physician Cardiology 07/21/21 Rubens Tim DO [address] [place] [address] [place] [address] Referring Buffet Runner 08/05/21 Inletter Relationship Specialty Start Date End Date Cas Dowell MD [address] [place] [address] PCP - General Family Medicine 04/09/23 Inletter Relationship Specialty Start Date End Date Cas Dowell MD [address] [place] [address] PCP - General Family Medicine 04/09/23 Inletter Relationship Specialty Start Date End Date Cas Dowell MD [address] [place] [address] PCP - General Family Medicine 04/09/23 Inletter Relationship Specialty Start Date End Date Cas Dowell MD [address] [place] [address] PCP - General Family Medicine 04/09/23 Inletter Relationship Specialty Start Date End Date Cas Dowell MD [address] [place] [address] PCP - General Family Medicine 04/09/23 Inletter Relationship Specialty Start Date End Date Cas Dowell MD PCP - General Family Medicine 11/18/20 Source Comments (unrecognize d section and content) In the event this informatio n is protected by the Federal Confidentiality of Alcohol and Drug Abuse Patient Records regulations: The Federal rules restrict any use of the information to criminally investigate or prosecute any alcohol or drug abuse patient.[facility] HospitalIn the event this information is protected by the Federal Confidentiality of Alcohol and Drug Abuse Patient Records regulations: The Federal rules restrict any use of the information to criminally investigate or prosecute any alcohol or drug abuse patient.[facility] HospitalIn the event this information is protected by the Federal Confidentiality of Alcohol and Drug Abuse Patient Records regulations: The Federal rules restrict any use of the information to criminally investigate or prosecute any alcohol or drug abuse patient.[facility] HospitalIn the event this information is protected by the Federal Confidentiality of Alcohol and Drug Abuse Patient Records regulations: The Federal rules restrict any use of the information to criminally investigate or prosecute any alcohol or drug abuse patient.[facility] HospitalIn the event this information is protected by the Federal Confidentiality of Alcohol and Drug Abuse Patient Records regulations: The Federal rules restrict any use of the information to criminally investigate or prosecute any alcohol or drug abuse patient.[facility] HospitalIn the event this information is protected by the Federal Confidentiality of Alcohol and Drug Abuse Patient Records regulations: The Federal rules restrict any use of the information to criminally investigate or prosecute any alcohol or drug abuse patient.[facility] HospitalIn the event this information is protected by the Federal Confidentiality of Alcohol and Drug Abuse Patient Records regulations: The Federal rules restrict any use of the information to criminally investigate or prosecute any alcohol or drug abuse patient.[facility] HospitalIn the event this information is protected by the Federal Confidentiality of Alcohol and Drug Abuse Patient Records regulations: The Federal rules restrict any use of the information to criminally investigate or prosecute any alcohol or drug abuse patient.[facility] HospitalIn the event this information is protected by the Federal Confidentiality of Alcohol and Drug Abuse Patient Records regulations: The Federal rules restrict any use of the information to criminally investigate or prosecute any alcohol or drug abuse patient.[facility] HospitalIn the event this information is protected by the Federal Confidentiality of Alcohol and Drug Abuse Patient Records regulations: The Federal rules restrict any use of the information to criminally investigate or prosecute any alcohol or drug abuse patient.[facility] HospitalIn the event this information is protected by the Federal Confidentiality of Alcohol and Drug Abuse Patient Records regulations: The Federal rules restrict any use of the information to criminally investigate or prosecute any alcohol or drug abuse patient.[facility] HospitalIn the event this information is protected by the Federal Confidentiality of Alcohol and Drug Abuse Patient Records regulations: The Federal rules restrict any use of the information to criminally investigate or prosecute any alcohol or drug abuse patient.[facility] HospitalIn the event this information is protected by the Federal Confidentiality of Alcohol and Drug Abuse Patient Records regulations: The Federal rules restrict any use of the information to criminally investigate or prosecute any alcohol or drug abuse patient.[facility] HospitalIn the event this information is protected by the Federal Confidentiality of Alcohol and Drug Abuse Patient Records regulations: The Federal rules restrict any use of the information to criminally investigate or prosecute any alcohol or drug abuse patient.[facility] HospitalIn the event this information is protected by the Federal Confidentiality of Alcohol and Drug Abuse Patient Records regulations: The Federal rules restrict any use of the information to criminally investigate or prosecute any alcohol or drug abuse patient.[facility] HospitalIn the event this information is protected by the Federal Confidentiality of Alcohol and Drug Abuse Patient Records regulations: The Federal rules restrict any use of the information to criminally investigate or prosecute any alcohol or drug abuse patient.[facility] HospitalIn the event this information is protected by the Federal Confidentiality of Alcohol and Drug Abuse Patient Records regulations: The Federal rules restrict any use of the information to criminally investigate or prosecute any alcohol or drug abuse patient.[facility] HospitalIn the event this information is protected by the Federal Confidentiality of Alcohol and Drug Abuse Patient Records regulations: The Federal rules restrict any use of the information to criminally investigate or prosecute any alcohol or drug abuse patient.[facility] HospitalIn the event this information is protected by the Federal Confidentiality of Alcohol and Drug Abuse Patient Records regulations: The Federal rules restrict any use of the information to criminally investigate or prosecute any alcohol or drug abuse patient.[facility] HospitalIn the event this information is protected by the Federal Confidentiality of Alcohol and Drug Abuse Patient Records regulations: The Federal rules restrict any use of the information to criminally investigate or prosecute any alcohol or drug abuse patient.[facility] HospitalIn the event this information is protected by the Federal Confidentiality of Alcohol and Drug Abuse Patient Records regulations: The Federal rules restrict any use of the information to criminally investigate or prosecute any alcohol or drug abuse patient.[facility] HospitalIn the event this information is protected by the Federal Confidentiality of Alcohol and Drug Abuse Patient Records regulations: The Federal rules restrict any use of the information to criminally investigate or prosecute any alcohol or drug abuse patient.[facility] HospitalIn the event this information is protected by the Federal Confidentiality of Alcohol and Drug Abuse Patient Records regulations: The Federal rules restrict any use of the information to criminally investigate or prosecute any alcohol or drug abuse patient.[facility] HospitalIn the event this information is protected by the Federal Confidentiality of Alcohol and Drug Abuse Patient Records regulations: The Federal rules restrict any use of the information to criminally investigate or prosecute any alcohol or drug abuse patient.[facility] HospitalIn the event this information is protected by the Federal Confidentiality of Alcohol and Drug Abuse Patient Records regulations: The Federal rules restrict any use of the information to criminally investigate or prosecute any alcohol or drug abuse patient.[facility] HospitalIn the event this information is protected by the Federal Confidentiality of Alcohol and Drug Abuse Patient Records regulations: The Federal rules restrict any use of the information to criminally investigate or prosecute any alcohol or drug abuse patient.[facility] HospitalIn the event this information is protected by the Federal Confidentiality of Alcohol and Drug Abuse Patient Records regulations: The Federal rules restrict any use of the information to criminally investigate or prosecute any alcohol or drug abuse patient.[facility] HospitalIn the event this information is protected by the Federal Confidentiality of Alcohol and Drug Abuse Patient Records regulations: The Federal rules restrict any use of the information to criminally investigate or prosecute any alcohol or drug abuse patient.[facility] HospitalIn the event this information is protected by the Federal Confidentiality of Alcohol and Drug Abuse Patient Records regulations: The Federal rules restrict any use of the information to criminally investigate or prosecute any alcohol or drug abuse patient.[facility] HospitalIn the event this information is protected by the Federal Confidentiality of Alcohol and Drug Abuse Patient Records regulations: The Federal rules restrict any use of the information to criminally investigate or prosecute any alcohol or drug abuse patient.[facility] HospitalIn the event this information is protected by the Federal Confidentiality of Alcohol and Drug Abuse Patient Records regulations: The Federal rules restrict any use of the information to criminally investigate or prosecute any alcohol or drug abuse patient.[facility] HospitalIn the event this information is protected by the Federal Confidentiality of Alcohol and Drug Abuse Patient Records regulations: The Federal rules restrict any use of the information to criminally investigate or prosecute any alcohol or drug abuse patient.[facility] HospitalIn the event this information is protected by the Federal Confidentiality of Alcohol and Drug Abuse Patient Records regulations: The Federal rules restrict any use of the information to criminally investigate or prosecute any alcohol or drug abuse patient.[facility] HospitalIn the event this information is protected by the Federal Confidentiality of Alcohol and Drug Abuse Patient Records regulations: The Federal rules restrict any use of the information to criminally investigate or prosecute any alcohol or drug abuse patient.[facility] HospitalIn the event this information is protected by the Federal Confidentiality of Alcohol and Drug Abuse Patient Records regulations: The Federal rules restrict any use of the information to criminally investigate or prosecute any alcohol or drug abuse patient.[facility] HospitalIn the event this information is protected by the Federal Confidentiality of Alcohol and Drug Abuse Patient Records regulations: The Federal rules restrict any use of the information to criminally investigate or prosecute any alcohol or drug abuse patient.[facility] HospitalIn the event this information is protected by the Federal Confidentiality of Alcohol and Drug Abuse Patient Records regulations: The Federal rules restrict any use of the information to criminally investigate or prosecute any alcohol or drug abuse patient.[facility] HospitalIn the event this information is protected by the Federal Confidentiality of Alcohol and Drug Abuse Patient Records regulations: The Federal rules restrict any use of the information to criminally investigate or prosecute any alcohol or drug abuse patient.[facility] HospitalIn the event this information is protected by the Federal Confidentiality of Alcohol and Drug Abuse Patient Records regulations: The Federal rules restrict any use of the information to criminally investigate or prosecute any alcohol or drug abuse patient.[facility] HospitalIn the event this information is protected by the Federal Confidentiality of Alcohol and Drug Abuse Patient Records regulations: The Federal rules restrict any use of the information to criminally investigate or prosecute any alcohol or drug abuse patient.[facility] HospitalIn the event this information is protected by the Federal Confidentiality of Alcohol and Drug Abuse Patient Records regulations: The Federal rules restrict any use of the information to criminally investigate or prosecute any alcohol or drug abuse patient.[facility] HospitalIn the event this information is protected by the Federal Confidentiality of Alcohol and Drug Abuse Patient Records regulations: The Federal rules restrict any use of the information to criminally investigate or prosecute any alcohol or drug abuse patient.[facility] HospitalIn the event this information is protected by the Federal Confidentiality of Alcohol and Drug Abuse Patient Records regulations: The Federal rules restrict any use of the information to criminally investigate or prosecute any alcohol or drug abuse patient.[facility] HospitalIn the event this information is protected by the Federal Confidentiality of Alcohol and Drug Abuse Patient Records regulations: The Federal rules restrict any use of the information to criminally investigate or prosecute any alcohol or drug abuse patient.[facility] HospitalIn the event this information is protected by the Federal Confidentiality of Alcohol and Drug Abuse Patient Records regulations: The Federal rules restrict any use of the information to criminally investigate or prosecute any alcohol or drug abuse patient.[facility] HospitalIn the event this information is protected by the Federal Confidentiality of Alcohol and Drug Abuse Patient Records regulations: The Federal rules restrict any use of the information to criminally investigate or prosecute any alcohol or drug abuse patient.[facility] HospitalIn the event this information is protected by the Federal Confidentiality of Alcohol and Drug Abuse Patient Records regulations: The Federal rules restrict any use of the information to criminally investigate or prosecute any alcohol or drug abuse patient.[facility] HospitalIn the event this information is protected by the Federal Confidentiality of Alcohol and Drug Abuse Patient Records regulations: The Federal rules restrict any use of the information to criminally investigate or prosecute any alcohol or drug abuse patient.[facility] HospitalIn the event this information is protected by the Federal Confidentiality of Alcohol and Drug Abuse Patient Records regulations: The Federal rules restrict any use of the information to criminally investigate or prosecute any alcohol or drug abuse patient.[facility] HospitalIn the event this information is protected [...] or prosecute any alcohol or drug abuse patient.[facility] HospitalIn the event this information is protected by the Federal Confidentiality of Alcohol and Drug Abuse Patient Records regulations: The Federal rules restrict any use of the information to criminally investigate or prosecute any alcohol or drug abuse patient.[facility] HospitalIn the event this information is protected by the Federal Confidentiality of Alcohol and Drug Abuse Patient Records regulations: The Federal rules restrict any use of the information to criminally investigate or prosecute any alcohol or drug abuse patient.[facility] HospitalIn the event this information is protected by the Federal Confidentiality of Alcohol and Drug Abuse Patient Records regulations: The Federal rules restrict any use of the information to criminally investigate or prosecute any alcohol or drug abuse patient.[facility] HospitalIn the event this information is protected by the Federal Confidentiality of Alcohol and Drug Abuse Patient Records regulations: The Federal rules restrict any use of the information to criminally investigate or prosecute any alcohol or drug abuse patient.[facility] HospitalIn the event this information is protected by the Federal Confidentiality of Alcohol and Drug Abuse Patient Records regulations: The Federal rules restrict any use of the information to criminally investigate or prosecute any alcohol or drug abuse patient.[facility] HospitalIn the event this information is protected by the Federal Confidentiality of Alcohol and Drug Abuse Patient Records regulations: The Federal rules restrict any use of the information to criminally investigate or prosecute any alcohol or drug abuse patient.[facility] HospitalIn the event this information is protected by the Federal Confidentiality of Alcohol and Drug Abuse Patient Records regulations: The Federal rules restrict any use of the information to criminally investigate or prosecute any alcohol or drug abuse patient.[facility] HospitalIn the event this information is protected by the Federal Confidentiality of Alcohol and Drug Abuse Patient Records regulations: The Federal rules restrict any use of the information to criminally investigate or prosecute any alcohol or drug abuse patient.[facility] HospitalIn the event this information is protected by the Federal Confidentiality of Alcohol and Drug Abuse Patient Records regulations: The Federal rules restrict any use of the information to criminally investigate or prosecute any alcohol or drug abuse patient.[facility] HospitalIn the event this information is protected by the Federal Confidentiality of Alcohol and Drug Abuse Patient Records regulations: The Federal rules restrict any use of the information to criminally investigate or prosecute any alcohol or drug abuse patient.[facility] HospitalIn the event this information is protected by the Federal Confidentiality of Alcohol and Drug Abuse Patient Records regulations: The Federal rules restrict any use of the information to criminally investigate or prosecute any alcohol or drug abuse patient.[facility] HospitalIn the event this information is protected by the Federal Confidentiality of Alcohol and Drug Abuse Patient Records regulations: The Federal rules restrict any use of the information to criminally investigate or prosecute any alcohol or drug abuse patient.[facility] HospitalIn the event this information is protected by the Federal Confidentiality of Alcohol and Drug Abuse Patient Records regulations: The Federal rules restrict any use of the information to criminally investigate or prosecute any alcohol or drug abuse patient.[facility] HospitalIn the event this information is protected by the Federal Confidentiality of Alcohol and Drug Abuse Patient Records regulations: The Federal rules restrict any use of the information to criminally investigate or prosecute any alcohol or drug abuse patient.[facility] HospitalIn the event this information is protected by the Federal Confidentiality of Alcohol and Drug Abuse Patient Records regulations: The Federal rules restrict any use of the information to criminally investigate or prosecute any alcohol or drug abuse patient.[facility] HospitalIn the event this information is protected by the Federal Confidentiality of Alcohol and Drug Abuse Patient Records regulations: The Federal rules restrict any use of the information to criminally investigate or prosecute any alcohol or drug abuse patient.[facility] HospitalIn the event this information is protected by the Federal Confidentiality of Alcohol and Drug Abuse Patient Records regulations: The Federal rules restrict any use of the information to criminally investigate or prosecute any alcohol or drug abuse patient.[facility] HospitalIn the event this information is protected by the Federal Confidentiality of Alcohol and Drug Abuse Patient Records regulations: The Federal rules restrict any use of the information to criminally investigate or prosecute any alcohol or drug abuse patient.[facility] HospitalIn the event this information is protected by the Federal Confidentiality of Alcohol and Drug Abuse Patient Records regulations: The Federal rules restrict any use of the information to criminally investigate or prosecute any alcohol or drug abuse patient.[facility] HospitalIn the event this information is protected by the Federal Confidentiality of Alcohol and Drug Abuse Patient Records regulations: The Federal rules restrict any use of the information to criminally investigate or prosecute any alcohol or drug abuse patient.[facility] HospitalIn the event this information is protected by the Federal Confidentiality of Alcohol and Drug Abuse Patient Records regulations: The Federal rules restrict any use of the information to criminally investigate or prosecute any alcohol or drug abuse patient.[facility] HospitalIn the event this information is protected by the Federal Confidentiality of Alcohol and Drug Abuse Patient Records regulations: The Federal rules restrict any use of the information to criminally investigate or prosecute any alcohol or drug abuse patient.[facility] HospitalIn the event this information is protected by the Federal Confidentiality of Alcohol and Drug Abuse Patient Records regulations: The Federal rules restrict any use of the information to criminally investigate or prosecute any alcohol or drug abuse patient.[facility] HospitalIn the event this information is protected by the Federal Confidentiality of Alcohol and Drug Abuse Patient Records regulations: The Federal rules restrict any use of the information to criminally investigate or prosecute any alcohol or drug abuse patient.[facility] HospitalIn the event this information is protected by the Federal Confidentiality of Alcohol and Drug Abuse Patient Records regulations: The Federal rules restrict any use of the information to criminally investigate or prosecute any alcohol or drug abuse patient.[facility] HospitalIn the event this information is protected by the Federal Confidentiality of Alcohol and Drug Abuse Patient Records regulations: The Federal rules restrict any use of the information to criminally investigate or prosecute any alcohol or drug abuse patient.[facility] HospitalIn the event this information is protected by the Federal Confidentiality of Alcohol and Drug Abuse Patient Records regulations: The Federal rules restrict any use of the information to criminally investigate or prosecute any alcohol or drug abuse patient.[facility] HospitalIn the event this information is protected by the Federal Confidentiality of Alcohol and Drug Abuse Patient Records regulations: The Federal rules restrict any use of the information to criminally investigate or prosecute any alcohol or drug abuse patient.[facility] HospitalIn the event this information is protected by the Federal Confidentiality of Alcohol and Drug Abuse Patient Records regulations: The Federal rules restrict any use of the information to criminally investigate or prosecute any alcohol or drug abuse patient.[facility] HospitalIn the event this information is protected by the Federal Confidentiality of Alcohol and Drug Abuse Patient Records regulations: The Federal rules restrict any use of the information to criminally investigate or prosecute any alcohol or drug abuse patient.[facility] HospitalIn the event this information is protected by the Federal Confidentiality of Alcohol and Drug Abuse Patient Records regulations: The Federal rules restrict any use of the information to criminally investigate or prosecute any alcohol or drug abuse patient.[facility] HospitalIn the event this information is protected by the Federal Confidentiality of Alcohol and Drug Abuse Patient Records regulations: The Federal rules restrict any use of the information to criminally investigate or prosecute any alcohol or drug abuse patient.[facility] HospitalIn the event this information is protected by the Federal Confidentiality of Alcohol and Drug Abuse Patient Records regulations: The Federal rules restrict any use of the information to criminally investigate or prosecute any alcohol or drug abuse patient.[facility] HospitalIn the event this information is protected by the Federal Confidentiality of Alcohol and Drug Abuse Patient Records regulations: The Federal rules restrict any use of the information to criminally investigate or prosecute any alcohol or drug abuse patient.[facility] HospitalIn the event this information is protected by the Federal Confidentiality of Alcohol and Drug Abuse Patient Records regulations: The Federal rules restrict any use of the information to criminally investigate or prosecute any alcohol or drug abuse patient.[facility] FOR RECORDS PERTAINING TO PATIENTS WHO [...] BE BASED ON THE PRIMARY CLINICAL RECORDS. [facility]. provides no warranty or guarantee of the accuracy or completeness of information in this document.
[2023-11-27 11:09] LABS: Progesterone 2.9 ng/mL (.)
[2023-11-29 21:08] LABS: Free Testosterone(Direct) <0.2 pg/mL (0.0-4.2); Testosterone <3 ng/dL (8-60)
== END 2023-11-26 07:33 | disposition home or self-care (01) ==
LOC: US 07:32
PROVIDERS: PCP Family Medicine; Visit Provider Obstetrics & Gynecology
DX: E06.3 Autoimmune thyroiditis (principal); E28.2 Polycystic ovarian syndrome; E34.9 Endocrine disorder, unspecified
CPT/HCPCS: 36415; 76830; 76856; 82530; 82626; 82627; 82670; 84144; 84402; 84403; 84439; 84443

== ENCOUNTER 2023-11-26 08:06 | Outpatient (OUT) | payer BC, SELFPAY ==
[2023-11-26 11:27] LABS: Free T4 0.89 ng/dL (0.76-1.46)
[2023-11-26 11:30] LABS: Thyroid Stimulating Hormone 0.864 uIU/mL (0.358-3.740)
== END 2023-11-26 08:07 | disposition home or self-care (01) ==
LOC: LAB 08:08
PROVIDERS: PCP Family Medicine
DX: E06.3 Autoimmune thyroiditis (principal)
CPT/HCPCS: 36415; 84439; 84443

== ENCOUNTER 2024-02-11 10:46 | Outpatient (OUT) | payer BC, SELFPAY ==
[2024-02-11 11:12] LABS: Estimated Average Glucose 120 mg/dL; Glycohemoglobin A1C 5.8 % (4.5-6.2)
== END 2024-02-11 10:47 | disposition home or self-care (01) ==
LOC: LAB 10:48
PROVIDERS: PCP Family Medicine; Visit Provider Family Medicine
DX: E11.65 Type 2 diabetes mellitus with hyperglycemia (principal)
CPT/HCPCS: 36415; 83036

== ENCOUNTER 2024-02-20 13:41 | Emergency (ER) | payer BC, SELFPAY ==
--- NOTE | 2024-02-20 13:46 | CT_ITS ---
[address] [address] Patient Name: LEANA TRAN MRN: [id number] date: 1985 Sex: F Assigned Patient Location: ER Current Patient Location: .[facility] Accession/Order Number: [id number] Exam Date: 02/20/2024 15:22 Report Date: 02/20/2024 16:04 At the request of: SONJA FLORENCE Procedure: CT angio chest CT SCAN OF THE CHEST WITH CONTRAST FOR CT PULMONARY ANGIOGRAPHY, 02/20/2024, 3:22 PM EST: COMPARISON: CT scan of the chest, 09/22/2021 CLINICAL HISTORY: Covid+, rule out PE, left sided chest pain TECHNIQUE: 3 mm axial images performed through the chest following intravenous administration of 100 mL of Omnipaque 350. 3 mm sagittal and coronal MPR and 10 mm coronal and sagittal MIP (maximum intensity projection) CTA reconstructions performed through the chest. Patient was premedicated for contrast allergy. Dose reduction techniques were achieved by using automated exposure control and/or adjustment of mA and/or kV according to patient size and/or use of iterative reconstruction technique. FINDINGS: No acute PE is identified. Main pulmonary artery and thoracic aorta normal caliber size. Normal heart size with no significant pericardial effusion. Minimal bibasilar atelectasis. Very subtle air trapping seen in the lower lobes bilaterally. Fatty infiltration of visualized liver. Prior cholecystectomy. No acute osseous abnormality. CT/CT angio chest IMPRESSION: 1. No acute PE is identified. Main pulmonary artery and thoracic aorta normal caliber size. 2. Minimal bibasilar atelectasis. Very subtle air trapping seen in the lower lobes bilaterally likely sequela of some underlying small airways disease. 3. Fatty infiltration of visualized liver. 4. Prior cholecystectomy. Electronically authenticated by: Deandre MORALES Date: 02/20/2024 16:04
--- NOTE | 2024-02-20 13:46 | ECG_ITS ---
[facility] Test Date: 2024-02-20 Pat Name: LEANA TRAN Department: Room: - Gender: Female Process Expert: : 1985 Requested By: [id number] Order Number: [id number] Reading MD: MATT PAZ Measurements Intervals [place] Rate: 67 P: 60 IL: 134 QRS: 103 QRSD: 90 T: 94 QT: 366 QTc: 381 Interpretive Statements 1100 Sinus rhythm 7100 Abnormal right axis deviation 9130 borderline ECG Compared to ECG 09/22/2021 18:26:07 No significant changes Electronically Signed On 02-20-2024 20:46:12 EST by MATT PAZ
--- NOTE | 2024-02-20 13:47 | ED_ITS ---
HPI HPI - General Adult General Chief complaint: Shortness of Breath/Dyspnea Stated complaint: RULE OUT PE - SENT FROM URGENT CARE Time Seen by Provider: 02/20/24 13:42 Source: patient History of Present Illness HPI narrative: Patient is a 38-year-old female who presents to the emergency department for evaluation of left-sided chest pain associated with shortness of breath, cough and congestion. Patient went to urgent care prior to arrival for the symptoms which have been present for the last 3 days. She tested positive for COVID. Due to her left-sided chest pain, urgent care referred her to the emergency department for evaluation. She has not had any hemoptysis, no vomiting or diarrhea. No medications taken prior to arrival. Related Data Home Medications ?Medication ?Instructions ?Recorded ?Confirmed azelastine 137 mcg-fluticasone 50 1 spray intranasal BID 01/23/23 01/23/23 mcg/spray nasal spray baclofen 10 mg tablet 10 mg PO DAILY 01/23/23 01/23/23 budesonide-formoterol HFA 160 2 puff inhalation BID 01/23/23 01/23/23 mcg-4.5 mcg/actuation aerosol inhaler (Symbicort) cholecalciferol (vitamin D3) 10 5,000 unit PO DAILY 01/23/23 01/23/23 mcg (400 unit) capsule duloxetine 60 mg capsule,delayed 60 mg PO DAILY 01/23/23 01/23/23 release (Cymbalta) epinephrine 0.3 mg/0.3 mL 0.3 mg IM Q10M PRN anaphylaxis 01/23/23 01/23/23 injection, auto-injector (EpiPen 2-Elder) fluticasone furoate 27.5 2 spray intranasal DAILY 01/23/23 01/23/23 mcg/actuation nasal spray,suspension (Flonase Sensimist) fluticasone propionate 50 1 spray intranasal DAILY PRN nasal 01/23/23 01/23/23 mcg/actuation nasal congestion spray,suspension (Flonase Allergy Relief) fremanezumab-vfrm 225 mg/1.5 mL 225 mg subcut .monthly 01/23/23 01/31/23 subcutaneous auto-injector (Ajovy) lamotrigine 150 mg tablet 150 mg PO DAILY 01/23/23 01/23/23 levothyroxine 100 mcg tablet 100 mcg PO DAILY 01/23/23 01/31/23 (Synthroid) linagliptin 5 mg tablet (Tradjenta) 5 mg PO DAILY 01/23/23 01/31/23 magnesium oxide 400 mg PO DAILY 01/23/23 01/23/23 montelukast 10 mg tablet 10 mg PO DAILY 01/23/23 01/23/23 (Singulair) pantoprazole 40 mg tablet,delayed 40 mg PO DAILY 01/23/23 01/23/23 release pyridostigmine bromide 180 mg 180 mg PO BID 01/23/23 01/23/23 tablet,extended release rimegepant 75 mg disintegrating 75 mg PO DAILY PRN migraine 01/23/23 01/23/23 tablet (Nurtec ODT) headache sertraline 200 mg capsule 100 mg PO DAILY 01/23/23 01/23/23 tamsulosin 0.4 mg capsule 0.4 mg PO DAILY PRN kidney stones 01/23/23 01/23/23 ubrogepant 50 mg tablet (Ubrelvy) 50 mg PO DAILY PRN migraine 01/23/23 01/23/23 headache vitamin B complex (B 1 tab PO DAILY 01/23/23 01/23/23 Complex-Vitamin B12 tablet) zonisamide 100 mg capsule 200 mg PO DAILY 01/23/23 01/23/23 (Zonegran) Previous Rx's ?Medication ?Instructions ?Recorded sucralfate 1 gram tablet 1 g PO Q6H 12 weeks #336 tabs 01/31/23 epinephrine 0.3 mg/0.3 mL 0.3 mg (0.3 mL) IM ONCE PRN 07/02/23 injection, auto-injector (EpiPen anaphylaxis #2 ea 2-Elder) prednisone 20 mg tablet 40 mg (2 x 20 mg) PO DAILY #6 tabs 07/02/23 epinephrine 0.3 mg/0.3 mL 0.3 mg (0.3 mL) IM Q10M PRN 09/22/23 injection, auto-injector (Auvi-Q) anaphylaxis #2 ea albuterol sulfate 90 mcg/actuation 2 inh inhalation Q4H PRN shortness 02/20/24 aerosol inhaler of breath or wheezing #8.5 grams raomhnfbffsmydc-jphproyshfeycoo-MF 10 ml PO Q6H PRN cold symptoms 02/20/24 2 mg-30 mg-10 mg/5 mL oral syrup #200 mL (Bromfed DM) dexamethasone 4 mg tablet 4 mg PO BID 5 days #10 tabs 02/20/24 ondansetron 4 mg disintegrating 4 mg PO Q6H PRN nausea and 02/20/24 tablet vomiting #12 tabs Allergies Allergy/AdvReac Type Severity Reaction Status Date / Time aspirin Allergy Hives Verified 02/20/24 14:11 cefaclor (From Ceclor) Allergy SOB Verified 02/20/24 14:11 clindamycin Allergy Rash Verified 02/20/24 14:11 ibuprofen (From Motrin) Allergy SOB Verified 02/20/24 14:11 iodine Allergy Unknown Verified 02/20/24 14:11 Latex, Natural Rubber Allergy Rash Verified 02/20/24 14:11 Macrolide Antibiotics Allergy Unknown Verified 02/20/24 14:11 penicillin G Allergy SOB Verified 02/20/24 14:11 povidone-iodine (From Allergy Rash Verified 02/20/24 14:11 Betadine) Sulfa (Sulfonamide Allergy Difficulty Verified 02/20/24 14:11 Antibiotics) Breathing valacyclovir (From Valtrex) Allergy Anaphylaxis Verified 02/20/24 14:11 scents/oils Allergy Severe Anaphylaxis Uncoded 02/20/24 14:11 Opioid HPI Opioid Management Most Recent Opioid Data: No Data to Display Review of Systems ROS Constitutional Reports: chills; Denies: fever Ears, nose, mouth, and throat Reports: nasal discharge and nasal congestion; Denies: throat pain Cardiovascular Reports: chest pain Respiratory Reports: shortness of breath, cough, pain on inspiration, change in phlegm color and chest congestion; Denies: coughing up blood Gastrointestinal Reports: nausea; Denies: vomiting Musculoskeletal Denies: back pain Integumentary/Breast Denies: rash Hematologic/Lymphatic Denies: easy bruising or easy bleeding [facility] Medical History (Updated 02/20/24 @ 16:03 by PONCE Neff) Celiac disease ?K90.0 - Celiac disease (ICD-10) Intracranial hypertension ?G93.2 - Benign intracranial hypertension (ICD-10) PCOS (polycystic ovarian syndrome) ?E28.2 - Polycystic ovarian syndrome (ICD-10) Laryngospasms ?J38.5 - Laryngeal spasm (ICD-10) 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 - Anaphylactic shock, unspecified, initial encounter (ICD-10) PTSD (post-traumatic stress disorder) ?F43.10 - Post-traumatic stress disorder, unspecified (ICD-10) Migraine ?G43.909 - Migraine, unspecified, not intractable, without status migrainosus (ICD-10) Autoimmune disorder ?D89.89 - Other specified disorders involving the immune mechanism, not elsewhere classified (ICD-10) COVID ?U07.1 - COVID-19 (ICD-10) History of gastric ulcer ?Z87.11 - Personal history of peptic ulcer disease (ICD-10) Lung infection ?J18.9 - Pneumonia, unspecified organism (ICD-10) History of electrocardiography ?Z92.89 - Personal history of other medical treatment (ICD-10) Anxiety and depression ?F41.9 - Anxiety disorder, unspecified (ICD-10) ?F32.A - Depression, unspecified (ICD-10) Arachnoid cyst ?G93.0 - Cerebral cysts (ICD-10) Asthma ?J45.909 - Unspecified asthma, uncomplicated (ICD-10) GERD (gastroesophageal reflux disease) ?K21.9 - Gastro-esophageal reflux disease without esophagitis (ICD-10) Hematuria ?R31.9 - Hematuria, unspecified (ICD-10) Hypothyroidism ?E03.9 - Hypothyroidism, unspecified (ICD-10) Insomnia ?G47.00 - Insomnia, unspecified (ICD-10) Kidney stone ?N20.0 - Calculus of kidney (ICD-10) Metabolic syndrome ?E88.810 - Metabolic syndrome (ICD-10) Myoclonic jerking ?G25.3 - Myoclonus (ICD-10) Obstructive sleep apnea ?G47.33 - Obstructive sleep apnea (adult) (pediatric) (ICD-10) Ovarian cyst ?N83.209 - Unspecified ovarian cyst, unspecified side (ICD-10) Paresthesia ?R20.2 - Paresthesia of skin (ICD-10) Peripheral edema ?R60.0 - Localized edema (ICD-10) Platelet dysfunction ?D69.1 - Qualitative platelet defects (ICD-10) Right inguinal hernia ?K40.90 - Unilateral inguinal hernia, without obstruction or gangrene, not specified as recurrent (ICD-10) Stress incontinence ?N39.3 - Stress incontinence (female) (male) (ICD-10) Thyroid nodule ?E04.1 - Nontoxic single thyroid nodule (ICD-10) Type 2 diabetes mellitus ?E11.9 - Type 2 diabetes mellitus without complications (ICD-10) Chronic urethral stricture Vitamin D deficiency ?E55.9 - Vitamin D deficiency, unspecified (ICD-10) Surgical History (Updated 01/23/23 @ 10:57 by Oliva Martin) History of endometrial ablation ?Z98.890 - Other specified postprocedural states (ICD-10) History of esophagogastroduodenoscopy (EGD) ?Z98.890 - Other specified postprocedural states (ICD-10) History of colonoscopy ?Z98.890 - Other specified postprocedural states (ICD-10) History of section ?Z98.891 - History of uterine scar from previous surgery (ICD-10) History of appendectomy ?Z90.49 - Acquired absence of other specified parts of digestive tract (ICD- 10) History of cholecystectomy ?Z90.49 - Acquired absence of other specified parts of digestive tract (ICD- 10) History of abdominal hysterectomy ?Z90.710 - Acquired absence of both cervix and uterus (ICD-10) History of cystoscopy ?Z98.890 - Other specified postprocedural states (ICD-10) History of laparoscopy ?Z98.890 - Other specified postprocedural states (ICD-10) History of nasal septoplasty ?Z98.890 - Other specified postprocedural states (ICD-10) History of tubal ligation ?Z98.51 - Tubal ligation status (ICD-10) History of tympanostomy ?Z98.890 - Other specified postprocedural states (ICD-10) Family History (Updated 01/23/23 @ 10:59 by Oliva Martin) Sister Family history of diabetes mellitus Father Heart disease Mother Heart disease Other Family history of cancer Social History Within the past year, how often did you have a drink containing alcohol: never Score interpretation: A score less than 3 is consistent with normal alcohol consumption. Smoking status: Never smoker Non-prescribed substance use: denies use Highest level of school completed/degree received: Associate degree: academic program Little interest or pleasure in doing things: not at all Feeling down, depressed, or hopeless: not at all Exam Narrative Exam Narrative: Gen.: Awake, alert, in no distress Head: Normocephalic, atraumatic ENT: Moist mucous membranes Respiratory: No respiratory distress, lungs clear bilaterally Cardio: Regular rate and rhythm Extremities: Moves extremities equally Psych: Normal mood and affect Neuro: No focal neuro deficit Skin: Warm, dry, intact Constitutional Vital Signs, click to edit/add: Last Vital Signs Temp 98.7 F 02/20/24 14:08 Pulse 66 02/20/24 15:34 Resp 18 02/20/24 15:34 BP 127/69 02/20/24 14:03 Pulse Ox 100 02/20/24 15:34 O2 Del Method Room Air 02/20/24 14:03 Course Vital Signs Vital signs: Vital Signs Pulse Rate 81 02/20/24 14:03 Respiratory Rate 20 02/20/24 14:03 Blood Pressure 127/69 02/20/24 14:03 Pulse Oximetry 99 02/20/24 14:03 Oxygen Delivery Method Room Air 02/20/24 14:03 Temperature 98.7 F 02/20/24 14:08 Pulse Rate 66 02/20/24 15:34 Respiratory Rate 18 02/20/24 15:34 Blood Pressure 127/69 02/20/24 14:03 Pulse Oximetry 100 02/20/24 15:34 Oxygen Delivery Method Room Air 02/20/24 14:03 Medical Decision Making MDM Narrative Medical decision making narrative: Discussed with the patient her history of allergic reactions and iodine allergy, discussed with the patient that in order to rule out a PE, we will need to do a CT angio of the chest with contrast. Patient states that she has previously tolerated CT scans with IV dye with premedication, minimal rash afterwards. She consents to having the CT done. She was premedicated with Solu-Medrol, Benadryl, Pepcid. CT angio of the chest with no evidence of acute process. Lab studies are grossly unremarkable. She is placed on Decadron, albuterol, Bromfed-DM and Zofran for home. Vital signs remained within normal limits in the ER. SUPERVISED APC VISIT, PHYSICIAN ATTESTATION: Based on the medical record the care appears appropriate. ? Medical Records Medical records reviewed: Yes I reviewed the patient's medical records Lab Data Lab results reviewed: Yes I reviewed the patient's lab results Labs: Lab Results 02/20/24 Range/Units 14:16 WBC 5.9 (4.0-11.0) 10^3/uL RBC 4.88 (4.20-5.40) 10^6/uL Hgb 14.3 (12.0-16.0) g/dL Hct 43.2 (36.0-48.0) % MCV 88.5 (81.0-99.0) fL MCH 29.3 (26.7-34.0) pg MCHC 33.1 (29.9-35.2) g/dL RDW 11.7 (11.0-15.0) % Plt Count 199 (150-450) 10^3/uL MPV 10.2 (9.5-13.5) fL Neut % (Auto) 77.4 H (43.0-75.0) % Lymph % (Auto) 14.9 L (20.5-60.0) % [place] % (Auto) 6.2 (1.7-12.0) % Eos % (Auto) 0.7 L (0.9-7.0) % Baso % (Auto) 0.3 (0.2-2.0) % Neut # (Auto) 4.5 (1.4-6.5) 10^3/uL Lymph # (Auto) 0.9 L (1.2-3.8) 10^3/uL [place] # (Auto) 0.4 (0.3-0.8) 10^3/uL Eos # (Auto) 0.0 (0.0-0.7) 10^3/uL Baso # (Auto) 0.0 (0.0-0.1) 10^3/uL Abs Immat Gran (auto) 0.03 (0.00-0.03) 10^3/uL Imm/Tot Granulo (auto) 0.5 (0.0-0.5) % PT 11.0 (9.0-11.6) sec INR 1.04 VBG pH 7.393 (7.330-7.430) VBG pCO2 39.3 L (40.0-52.0) mmHg Sodium 138 (136-145) mmol/L Potassium 3.5 (3.5-5.1) mmol/L Chloride 103 (98-107) mmol/L Carbon Dioxide 26.2 (21.0-32.0) mmol/L Anion Gap 12.3 BUN 11.0 (7.0-18.0) mg/dL Creatinine 1.31 H (0.55-1.02) mg/dL Est GFR ( Amer) 54 L (>=60 mL/min/1.73m^2) Est GFR (Non-Af Amer) 45 L (>=60 mL/min/1.73m^2) BUN/Creatinine Ratio 8.4 Glucose 94 (74-106) mg/dL Calcium 8.9 (8.5-10.1) mg/dL Total Bilirubin 0.3 (0.2-1.0) mg/dL AST 14 L (15-37) U/L ALT 23 (14-59) U/L Alkaline Phosphatase 81 (46-116) U/L Troponin I High Sens <4.0 L (4.0-51.3) pg/mL NT-Pro-B Natriuret Pep 43.0 (<=450.0) pg/mL Total Protein 7.4 (6.4-8.2) g/dL Albumin 3.6 (3.4-5.0) g/dL Globulin 3.8 g/dL Albumin/Globulin Ratio 0.[address] scan - chest: Attestation: I have reviewed the pertinent imaging results. Radiologist's impression: ITS Impressions Chest CTA 02/20/24 13:46 IMPRESSION: 1. No acute PE is identified. Main pulmonary artery and thoracic aorta normal caliber size. 2. Minimal bibasilar atelectasis. Very subtle air trapping seen in the lower lobes bilaterally likely sequela of some underlying small airways disease. 3. Fatty infiltration of visualized liver. 4. Prior cholecystectomy. Electronically authenticated by: Deandre MORALES Date: 02/20/2024 15:47 ECG Data Attestation: I personally reviewed and interpreted this ECG as follows: (Normal sinus rhythm at a rate of [address] elevation or ectopy. EKG reviewed by attending physician) Discharge Plan Discharge Chief Complaint: Shortness of Breath/Dyspnea Clinical Impression: COVID-19 Patient Disposition: Home, Self-Care Time of Disposition Decision: 16:03 Condition: Good Prescriptions / Home Meds: New dexamethasone 4 mg tablet 4 mg PO BID 5 Days Qty: 10 0RF albuterol sulfate 90 mcg/actuation HFA aerosol inhaler 2 inh inhalation Q4H PRN (Reason: shortness of breath or wheezing) Qty: 8.5 0RF xeiryyszarimkge-iponjvgba-XY [Bromfed DM] 2-30-10 mg/5 mL syrup 10 ml PO Q6H PRN (Reason: cold symptoms) Qty: 200 0RF ondansetron 4 mg tablet,disintegrating 4 mg PO Q6H PRN (Reason: nausea and vomiting) Qty: 12 0RF No Action prednisone 20 mg tablet 40 mg PO DAILY Qty: 6 0RF epinephrine [EpiPen 2-Elder] 0.3 mg/0.3 mL auto-injector 0.3 mg IM ONCE PRN (Reason: anaphylaxis) Qty: 2 0RF Rx Instructions: for 2 doses zonisamide [Zonegran] 100 mg capsule 200 mg PO DAILY Ubrelvy 50 mg tablet 50 mg PO DAILY PRN (Reason: migraine headache) Tradjenta 5 mg tablet 5 mg PO DAILY tamsulosin 0.4 mg capsule 0.4 mg PO DAILY PRN (Reason: kidney stones) budesonide-formoterol [Symbicort] 160-4.5 mcg/actuation HFA aerosol inhaler 2 puff inhalation BID montelukast [Singulair] 10 mg tablet 10 mg PO DAILY sertraline 200 mg capsule 100 mg PO DAILY pantoprazole 40 mg tablet,delayed release (DR/EC) 40 mg PO DAILY Nurtec ODT 75 mg tablet,disintegrating 75 mg PO DAILY PRN (Reason: migraine headache) magnesium oxide 400 mg magnesium tablet 400 mg PO DAILY lamotrigine 150 mg tablet 150 mg PO DAILY fluticasone propionate [Flonase Allergy Relief] 50 mcg/actuation spray,suspension 1 spray intranasal DAILY PRN (Reason: nasal congestion) Rx Instructions: administer into each nostril epinephrine [EpiPen 2-Elder] 0.3 mg/0.3 mL auto-injector 0.3 mg IM Q10M PRN (Reason: anaphylaxis) Rx Instructions: for 2 doses duloxetine [Cymbalta] 60 mg capsule,delayed release(DR/EC) 60 mg PO DAILY baclofen 10 mg tablet 10 mg PO DAILY Patient Comments: takes 10-20mg at night Ajovy Autoinjector 225 mg/1.5 mL auto-injector 225 mg subcut .monthly cholecalciferol (vitamin D3) 10 mcg (400 unit) capsule 5,000 unit PO DAILY pyridostigmine bromide 180 mg tablet extended release 180 mg PO BID Rx Instructions: administer 6 hours apart levothyroxine [Synthroid] 100 mcg tablet 100 mcg PO DAILY azelastine-fluticasone 137-50 mcg/spray spray,non-aerosol 1 spray intranasal BID Patient Comments: both nostrils Rx Instructions: administer into each nostril vitamin B complex [B Complex-Vitamin B12] Tablet 1 tab PO DAILY Patient Comments: takes 1,000 mcg Flonase Sensimist 27.5 mcg/actuation spray,suspension 2 spray intranasal DAILY Rx Instructions: into each nostril sucralfate 1 gram tablet 1 g PO Q6H 84 Days Qty: 336 3RF epinephrine [Auvi-Q] 0.3 mg/0.3 mL auto-injector 0.3 mg IM Q10M PRN (Reason: anaphylaxis) Qty: 2 0RF Rx Instructions: for 2 doses Print Language: Ukrainian Instructions: COVID-19 (Coronavirus Disease 2019) (ED) Referrals: Cas Galicia MD [Primary Care Provider] - 1 week
[2024-02-20 14:03] VITALS: BP 127/69; PULSE 81; O2SAT 99; BMI 37.8
[2024-02-20 14:08] VITALS: TEMP 37.1
[2024-02-20] MEDS: METHYLPREDNISOLONE SOD SUCC PF 125 MG/2 ML VIAL IVP (14:21)
[2024-02-20] MEDS: FAMOTIDINE/PF 20 MG/2 ML VIAL IV (14:21)
[2024-02-20] MEDS: DIPHENHYDRAMINE HCL 50 MG/ML VIAL 25 MG IV (14:22)
[2024-02-20 14:24] LABS: Basophils Percent Auto 0.3 % (0.2-2.0); Eosinophils Percent Auto 0.7 % (0.9-7.0); Hematocrit 43.2 % (36.0-48.0); Hemoglobin 14.3 g/dL (12.0-16.0); Immature Granulocytes Abs Auto 0.03 10^3/uL (0.00-0.03); Immature Granulocytes Pct Auto 0.5 % (0.0-0.5); Lymphocytes Absolute Auto 0.9 10^3/uL (1.2-3.8); Lymphocytes Percent Auto 14.9 % (20.5-60.0); Mean Corpuscular HGB Conc 33.1 g/dL (29.9-35.2); Mean Corpuscular Hemoglobin 29.3 pg (26.7-34.0); Mean Corpuscular Volume 88.5 fL (81.0-99.0); Mean Platelet Volume 10.2 fL (9.5-13.5); Monocytes Absolute Auto 0.4 10^3/uL (0.3-0.8); Monocytes Percent Auto 6.2 % (1.7-12.0); Neutrophils Absolute Auto 4.5 10^3/uL (1.4-6.5); Neutrophils Percent Auto 77.4 % (43.0-75.0); Platelet Count 199 10^3/uL (150-450); Red Blood Count 4.88 10^6/uL (4.20-5.40); Red Cell Distribution Width 11.7 % (11.0-15.0); White Blood Count 5.9 10^3/uL (4.0-11.0)
[2024-02-20 14:25] LABS: PCO2 VBG 39.3 mmHg (40.0-52.0); pH VBG 7.393 (7.330-7.430)
[2024-02-20 14:39] LABS: INR 1.04
[2024-02-20 14:45] LABS: Alanine Aminotransferase 23 U/L (14-59); Albumin Globulin Ratio 0.9; Albumin Level 3.6 g/dL (3.4-5.0); Alkaline Phosphatase 81 U/L (46-116); Anion Gap 12.3; Aspartate Amino Transferase 14 U/L (15-37); BUN Creatinine Ratio 8.4; Bilirubin Total 0.3 mg/dL (0.2-1.0); Calcium 8.9 mg/dL (8.5-10.1); Carbon Dioxide 26.2 mmol/L (21.0-32.0); Chloride 103 mmol/L (98-107); Estimated GFR (African America 54 (>=60 mL/min/1.73m^2); Estimated GFR (Non-African Ame 45 (>=60 mL/min/1.73m^2); Globulin 3.8 g/dL; Glucose 94 mg/dL (74-106); Potassium 3.5 mmol/L (3.5-5.1); Sodium 138 mmol/L (136-145); Total Protein 7.4 g/dL (6.4-8.2)
[2024-02-20 14:52] LABS: Troponin I High Sensitivity <4.0 pg/mL (4.0-51.3)
[2024-02-20 15:34] VITALS: PULSE 66; O2SAT 100
== END 2024-02-20 16:18 | disposition home or self-care (01) ==
PROVIDERS: Physician Assistant; Emergency Provider Emergency Medicine; PCP Family Medicine
DX: U07.1 COVID-19 (principal); Z90.49 Acquired absence of other specified parts of digestive tract; Z98.51 Tubal ligation status; Z90.710 Acquired absence of both cervix and uterus; R06.02 Shortness of breath
CPT/HCPCS: 36415; 71275; 80053; 82800; 83880; 84484; 85025; 85610; 87040; 93005; 96374; 96375; 99285; J1200; J2919; Q9967

== ENCOUNTER 2024-04-18 09:47 | Outpatient (OUT) | payer BC, SELFPAY | END 2024-04-18 09:48 | disposition home or self-care (01) | PROVIDERS: PCP Family Medicine | DX: J45.40 Moderate persistent asthma, uncomplicated (principal) | CPT/HCPCS: 36415; 82785 ==

== ENCOUNTER 2024-05-01 09:48 | Outpatient (OUT) | payer BC, SELFPAY ==
[2024-05-02 04:15] LABS: DHEA-Sulfate 60.8 ug/dL (57.3-279.2)
== END 2024-05-01 09:49 | disposition home or self-care (01) ==
LOC: LAB 09:50
PROVIDERS: PCP Family Medicine; Visit Provider Obstetrics & Gynecology
DX: E34.9 Endocrine disorder, unspecified (principal); E28.2 Polycystic ovarian syndrome
CPT/HCPCS: 36415; 82627; 82642; 84402; 84403

== ENCOUNTER 2024-05-07 19:39 | Outpatient (OUT) | payer BC, SELFPAY ==
--- OUTSIDE RECORDS SUMMARY | 2024-05-07 20:01 | XMS_ITS | CCD ---
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 Name Role Phone Cas Dowell MD Primary [...] DO Unavailable Cas Dowell Primary Care Provider [phone] CAS DOWELL Primary Care Physician CAS DOWELL [...] Consulting Unavailable EPSTEIN, MAREK Consulting Unavailable KLIPPER, EBLÉN Consulting Unavailable NADERER, DR CAS Guzman Consulting [...] Starkey Consulting Unavailable Ana PEREZ, Sai Unavailable Cas Dowell MD Primary Care Provider [phone] Cas Dowell Primary Care Provider [phone] MUNIR, FUENTES Referring Unavailable ABHYANKAR, FUENTES Attending Unavailable NADRAJ, CAS Guzman Primary Care Unavailable ABAURA, FUENTES Referring Unavailable NADERESuzy, CAS Guzman Primary Care Unavailable Selma Choe Attending Unavailable NILTesfaye Lewis Attending Unavailable NILL, Tesfaye Almonte Attending Unavailable NADERESuzy, CAS Referring Unavailable NILTesfaye Lewis Attending Unavailable Glenroy DO, Rubens R Unavailable Cas Dowell MD Primary Care Provider Cas Dowell MD Primary Care Provider Cas Dowell MD Unavailable CAS DOWELL Primary Care UnavailIVORY Prasad Referring Unavailable NABOR YANCEY Referring Unavailable NADERESuzy, CAS WAN Primary Care UnavailSARAH James Attending Unavailable LACEYERECAS Almonte Referring Unavailable NADERESuzy, CAS Primary Care Unavailable MARNI FLOWERS Attending Unavailable LACEYERESuzy, CAS Referring Unavailable NADERESuzy, CAS Primary Care Unavailable AKILA YAO Attending Unavailable GRAYSON, CAS Referring Unavailable GRAYSON, CAS Primary Care Unavailable MARNI FLOWERS Attending Unavailable GRAYSON, CAS Referring Unavailable GRAYSON, CAS Primary Care Unavailable Cas Dowell MD Unavailable AKILA YAO Referring Unavailable NADERESuzy, CAS Primary Care Unavailable Cas Dowell MD Primary Care Provider [phone] CAS DOWELL Attending Unavailable GRAYSON, CAS Attending Unavailable JODI MAZARIEGOS Attending Unavailable GLENROY, RUBENS Attending Unavailable GLENROY, RUBENS Attending Unavailable NADERER, CAS Attending Unavailable NADERESuzy, CAS Attending Unavailable RAMBASECHRISTY Peña Attending Unavailable GRAYSON, CAS Referring Unavailable GLENROY, RUBENS Attending Unavailable GRAYSON, CAS Attending Unavailable Nadelr Cas PEREZ Primary Care Provider [phone] ABEL, STEPHON Referring Unavailable VIPUL, ABIEL Referring Unavailable VIPUL, ABIEL Referring Unavailable VIPUL, ABIEL Referring Unavailable VIPUL, ABIEL Referring Unavailable VIPUL, ABIEL Referring Unavailable ABEL, STEPHON Referring Unavailable VIPUL, ABIEL Referring Unavailable VIPUL, ABIEL Referring Unavailable KARABINMACRINA Attending Unavailable VIPUL, ABIEL Referring Unavailable VIPUL, ABIEL Referring Unavailable ABEL, STEPHON Referring Unavailable ABEL, STEPHON Referring Unavailable ABEL, STEPHON Referring Unavailable ABEL, STEPHON Referring Unavailable ABEL, STEPHON Referring Unavailable ABEL, STEPHON Referring Unavailable VIPUL, ABIEL Referring Unavailable Cas Dowell MD Primary Care Provider William PEREZ, Phillip Guerra Attending Unavailable Grayson PEREZ, Cas Wan Primary Care Unavail laura Thomas MD, Phillip Guerra Attending Unavailable Grayson PEREZ, Cas Wan Primary Care Unavail laura Thomas MD, Phillip Guerra Attending Unavailable Cas Dowell MD Primary Care Unavail able Allergies Allergy Classification Reported Allergen(s) Allergy Type Date of Onset Reaction(s) Facility Aluminum aspirin (1 source) Aluminum aspirin Drug Allergy 09-04-19 12 Rash [facility] Cephalosporins (antibiotic) (2 sources) Cefaclor Drug Allergy 09-04-19 12 Shortness Of Breath, Rash [facility] Phone: drospirenone / Ethinyl Estradiol (1 source) drospirenone / Ethinyl Estradiol Drug Allergy 09-04-19 12 [facility] Phone: Ethinyl Estradiol / Norethindrone (1 source) Ethinyl Estradiol / Norethindrone Drug Allergy 09-04-19 12 [facility] Phone: Latex (1 source) Latex Substance Allergy 09-04-19 12 Swelling, Rash [facility] Phone: Macrolides (antibiotic) (1 source) Erythromycin Drug Allergy 09-04-19 12 Shortness Of Breath [facility] Phone: NSAIDs (1 source) Ibuprofen Drug Allergy 09-04-19 12 [facility] Phone: Penicillins (antibiotic) (1 source) Penicillins Drug Allergy 09-04-19 12 Rash [facility] Phone: rofecoxib (1 source) rofecoxib Drug Allergy 09-04-19 12 [facility] Phone: Sulfonamides (antibiotic) (1 source) Sulfonamides (Antibiotic) Drug Allergy 03-21-19 16 [facility] Unclassified (10 sources) Clindamycin/Lincomy juan Propensity to adverse reactions to drug 09-04-19 12 Rash [facility] Phone: Unclassified (20 sources) Iodides; Translations: [IODIDES] Propensity to adverse reactions to drug 09-04-19 12 Unknown, Anaphylaxis [facility] Phone: Unclassified (20 sources) Lavender Oil Propensity to adverse reactions to drug 06-14-19 21 Anaphylaxis [facility] (20 sources) Aluminum aspirin; Translations: [ASPIRIN] Drug Allergy 09-04-19 12 Rash, Angioedema, Unknown [facility] (20 sources) Cefaclor; Translations: [cefaclor] Drug Allergy 09-04-19 12 Shortness Of Breath, Anaphylaxis, Swelling, Unknown (qualifier value), Dyspnea (finding) [facility] Phone: (20 sources) Cefuroxime; Translations: [CEFUROXIME AXETIL] Drug Allergy 09-04-19 12 Rash, Unknown, Shortness of Breath [facility] Phone: (20 sources) drospirenone / Ethinyl Estradiol; Translations: [DROSPIRENONE-ETHIN YL ESTRADIOL] Drug Allergy 09-04-19 12 Unknown, Other: See Comments [facility] Phone: (20 sources) Erythromycin; Translations: [ERYTHROMYCIN] Drug Allergy 09-04-19 12 Shortness Of Breath, Swelling, Unknown [facility] Phone: (20 sources) Ethinyl Estradiol / Norethindrone Drug Allergy 09-04-19 12 [facility] Phone: (20 sources) Ibuprofen; Translations: [ibuprofen] Drug Allergy 09-04-19 12 Unknown (qualifier value), Rash, Unknown, Dyspnea (finding) [facility] (20 sources) Latex; Translations: [LATEX] Propensity to adverse reactions to drug 09-04-19 12 Swelling, Rash, Itching, Unknown, Eruption of skin (disorder) [facility] Phone: (12 sources) Penicillins; Translations: [PENICILLINS] Propensity to adverse reactions to drug 09-04-19 12 Rash, Itching [facility] Phone: (20 sources) rofecoxib Drug Allergy 09-04-19 12 Unknown, Rash [facility] Phone: (6 sources) Sulfonamides (Antibiotic) Propensity to adverse reactions to drug 03-21-19 16 [employer] [facility] (20 sources) Aspirin; Translations: [aspirin] Drug Allergy 09-04-19 12 Unknown, Angioedema, Unknown (qualifier value), Weal (disorder), Rash [facility] (20 sources) Clindamycin; Translations: [clindamycin] Drug Allergy 02-23-19 15 Swelling, Shortness of Breath, Rash, Unknown (qualifier value), Eruption of skin (disorder) [facility] (20 sources) Contrast media; Translations: [CONTRAST DYE] Drug Allergy 09-04-19 12 Anaphylaxis [facility] (20 sources) Naproxen; Translations: [NAPROXEN] Drug Allergy 09-07-19 21 Swelling, Angioedema [facility] (19 sources) Penicillins Propensity to adverse reactions to drug 02-23-19 15 Rash, Itching [facility] (20 sources) Sulfonamides (Antibiotic); Translations: [SULFA (SULFONAMIDE ANTIBIOTICS)] Drug Allergy 03-21-19 16 Swelling, Shortness of Breath [facility] (20 sources) Lavender (Lavandula Angustifolia); Translations: [LAVENDER (LAVANDULA ANGUSTIFOLIA)] Drug Allergy 06-14-19 21 Anaphylaxis [facility] (6 sources) Eucalyptus oil Drug Allergy 10-24-19 21 [facility] (20 sources) gatifloxacin; Translations: [GATIFLOXACIN] Drug Allergy 12-22-19 15 Diarrhea [facility] Work Phone: (18 sources) Norethindrone-Ethin Estradiol; Translations: [NORETHINDRONE-ETHI N ESTRADIOL] Propensity to adverse reactions to drug 06-09-19 22 Unknown [facility] (20 sources) Eucalyptus extract; Translations: [EUCALYPTUS] Drug Allergy 10-24-19 21 Anaphylaxis [facility] (20 sources) levoFLOXacin; Translations: [LEVOFLOXACIN] Drug Allergy 11-12-19 21 Rash [facility] (20 sources) metroNIDAZOLE; Translations: [METRONIDAZOLE] Drug Allergy 03-02-19 22 Unknown [facility] (20 sources) Sulfamethoxazole / Trimethoprim; Translations: [SULFAMETHOXAZOLE-T RIMETHOPRIM] Drug Allergy 01-24-20 14 Unknown, Other (See Comments) [facility] (20 sources) Fish; Translations: [FISH CONTAINING PRODUCTS] Drug Allergy 07-26-19 22 [facility] Work Phone: (20 sources) Shellfish; Translations: [SHELLFISH DERIVED] Drug Allergy 07-26-19 [facility] Work Phone: (20 sources) Penicillins Propensity to adverse reactions to drug 09-04-19 12 Rash, Itching [facility] (20 sources) Penicillin G; Translations: [PENICILLIN G BENZATHINE] Drug Allergy 08-19-19 22 Unknown [facility] Work Phone: (7 sources) Iodine; Translations: [iodine] Drug Allergy 05-25-19 23 Unknown (qualifier value) [facility] (7 sources) Macrolides (Antibiotic); Translations: [macrolide antibiotics] Drug allergy 09-04-19 12 Allergy - specialty (qualifier value) [facility] (7 sources) Penicillin; Translations: [penicillin] Drug Allergy Unknown (qualifier value), Dyspnea (finding) [facility] (7 sources) Sulfonamides (Antibiotic); Translations: [sulfa drugs] Drug allergy Allergy - specialty (qualifier value) [facility] (20 sources) valACYclovir; Translations: [valacyclovir] Drug Allergy 10-06-19 22 Anaphylaxis (disorder), Shortness Of Breath, Anaphylaxis [facility] (20 sources) Povidone-Iodine; Translations: [povidone iodine topical] Drug Allergy 05-25-19 23 Eruption of skin (disorder), Rash [facility] (20 sources) Seafood Propensity to adverse reactions to drug 01-09-20 22 Hives, Rash [facility] Phone: (20 sources) rofecoxib; Translations: [ROFECOXIB] Drug Allergy 09-04-19 12 Rash, Unknown [facility] (5 sources) IODINATED CONTRAST MEDIA; Translations: [IODINATED CONTRAST MEDIA] Propensity to adverse reactions to drug (disorder) 02-23-19 15 [facility] (1 source) Aspirin Drug Allergy 03-12-[address] [facility] Rep[facility] (3 sources) Cefaclor; Translations: [Ceclor] Drug Allergy 03-12-[address] [facility] (2 sources) Cefuroxime; Translations: [Ceftin] Drug Allergy 03-12-19 [address] [facility] (1 source) Clindamycin Drug Allergy 03-12-[address] [facility] (1 source) Erythromycin Drug Allergy 03-12-19 [address] [facility] (1 source) Eucalyptus extract Drug Allergy 10-24-19 [address] [facility] (1 source) gatifloxacin Drug Allergy 12-22-19 [address] [facility] (2 sources) Ibuprofen; Translations: [Motrin] Drug Allergy [facility] (1 source) Iodine (And Iodine Containting Drugs) Drug allergy (disorder) 03-12-19 [address] [facility] (1 source) Latex Drug allergy (disorder) 03-12-19 [address] [facility] (1 source) levoFLOXacin Drug Allergy 11-12-19 [address] [facility] (1 source) Naproxen Drug Allergy 08-07-19 [address] [facility] (1 source) Penicillins Drug allergy (disorder) 03-12-[address] [facility] (1 source) rofecoxib Drug Allergy 03-12-[address] [facility] (1 source) Sulfamethoxazole / Trimethoprim Drug Allergy 02-23-19 [address] [facility] (1 source) Sulfonamides (Antibiotic) Drug allergy (disorder) 03-12-19 [address] [facility] (1 source) valACYclovir Drug Allergy [facility] (20 sources) buPROPion; Translations: [BUPROPION] Drug Allergy 06-22-19 23 Other (See Comments) [facility] (20 sources) Cefuroxime Drug Allergy 07-08-19 23 [facility] (20 sources) dimethicone; Translations: [DIMETHICONE] Drug Allergy 07-08-19 23 [facility] (20 sources) Fish - dietary Allergy to substance 07-26-19 22 Hives [facility] (20 sources) Gatifloxacin Allergy to substance 12-22-19 15 Diarrhea [facility] (20 sources) Latex Allergy to substance 09-04-19 12 Itching, Rash, Swelling, Unknown [facility] (20 sources) Menthol; Translations: [MENTHOL] Drug Allergy 02-27-19 23 Hives [facility] (20 sources) Penicillins Drug Intolerance 09-04-19 12 Itching, Rash [facility] (20 sources) zolpidem; Translations: [ZOLPIDEM] Drug Allergy 05-25-19 23 Unknown, Other (See Comments) [facility] (20 sources) Galcanezumab-Gnlm Propensity to adverse reactions 07-08-19 23 [facility] (20 sources) Norethindrone-Eth Estradiol Drug Intolerance 09-04-19 12 [facility] (20 sources) Benzathine penicillin - chemical Allergy to substance 08-22-19 24 [facility] (20 sources) Sulfamethoxazole; Translations: [SULFAMETHOXAZOLE] Allergy to substance 08-19-19 [facility] (3 sources) Ibuprofen; Translations: [IBUPROFEN] Drug Allergy 09-04-19 [facility] Rep[facility] (3 sources) natural latex rubber; Translations: [LATEX, NATURAL RUBBER] Propensity to adverse reactions to drug (disorder) 09-04-19 [facility] (19 sources) GLOVES, LATEX WITH ALOE VERA; Translations: [GLOVES, LATEX WITH ALOE VERA] Propensity to adverse reactions to drug (disorder) 08-19-19 [facility] (3 sources) NORETHINDRONE AC-ETH ESTRADIOL; Translations: [NORETHINDRONE AC-ETH ESTRADIOL] Propensity to adverse reactions to drug (disorder) 09-04-19 [facility] (8 sources) Topiramate Propensity to adverse reactions 02-10-19 [facility] (16 sources) Sulfamethoxazole Drug Allergy 08-19-19 [facility] (1 source) CT dye and contrast; Translations: [CT dye and contrast] Propensity to adverse reactions (disorder) [facility] Repository Medications Current Medications Medication Drug [...] 20 days. acetaminophen 500 mg oral tablet (4 sources) Start: 01-30-2022 take 1 tablet by mouth every six hours as needed for pain acetaminophen (TYLENOL) 500 MG tablet Take 1 tablet by mouth every 6 hours as needed for Pain 30 tablet 01/30/2022 Active Start: 11-01-2020 End: 11-01-2020 acetaminophen (TYLENOL) tabl et 650 mg acetaminophen 325 mg / butalbital 50 mg / caffeine 40 mg oral tablet (1 source) Barbiturate, Central Nervous System Stimulant, Methylxanthine take 1 tablet by mouth every four hours as needed for headache aqqblgzuhi-elmgmkleeecaj-bnmffqtq (FIORICET) 50-325-40 MG per tablet Take 1 [...] Refills(s) 0 Start Date: 01/04/23 Status: Ordered [id number] actuat albuterol 0.09 mg/actuat metered dose inhaler (20 sources) beta2-Adrenergic Agonist Sta rt: 4 take 1 dose by inhalation once 4 puff, Inhalation, ONCE, 1 dose, On Sun12/19/23 at 0800, Initiate RT Bronchodilator Protocol: No Start: 01-11-2022 albuterol (PRO VENTIL HFA;VENTOLIN HFA) 90 mcg/actuation inhaler as needed. 01/11/2022 Active Start: 01-11-2022 End: 02-11-2024 albuterol (PROVENTIL HFA;MARJORIE TOLIN HFA) 90 mcg/actuation inhaler every 4 (four) hours. 0 01/11/2022 Active Start: 01-11-2022 take 1 puff(s) by in halation every six hours as needed for wheezing albuterol sulfate HFA (PROVENTIL;VENTOLIN;PROAIR) 108 (90 Base) MCG/ACT inhaler Inhale 1 puff into the lungs every 6 hours as needed for Wheezing 18 g 3 01/11/2022 Active Start: 01-11-2022 albuterol (PRO VENTIL HFA;VENTOLIN HFA) 90 mcg/actuation inhaler every 4 (four) hours. 01/11/2022 Active Start: 01-11-2022 albuterol (PRO VENTIL) (2.5 MG/3ML) 0.083% nebulizer solution Take 3 mLs by nebulization every 6 hours as needed for Wheezing 120 each 3 01/11/2022 Active Start: 06-04-2021 albuterol (PRO [...] hydrochloride 0.137 mg/actuat metered dose nasal spray (20 sources) Histamine-1 Receptor Antagonist Start: take 1 [...] Start Date: 09/05/22 Status: Ordered Start: 08-10-2022 End: 09-10-2023 take 1 spray(s) nasal route in the morning azelastine (ASTELIN) 137 mcg (0.1 %) nasal spray Indications: Chronic sinusitis Administer 1 spray into each nostril in the morning and 1 spray before bedtime. Use in each nostril as directed. 30 mL 12 08/10/2022 09/10/2023 Discontinued Comment on above: SPRAY 1 SPRAY INTO [...] Date: 12/21/21 Status: Ordered Start: 08-24-2021 End: 02-22-2024 take 1-2 tablets by mouth once daily baclofen (LIORESAL) 10 mg tablet TAKE 1 TO 2 TABLETS BY MOUTH NIGHTLY 60 tablet 5 02/22/2024 Active Comment on above: Take 10-20 mg [...] BY MOUTH TWICE A DAY 06/12/2022 Active Start: 06-12-2022 take 2 puff(s) by in halation twice daily SYMBICORT 160-4.5 MCG/ACT AERO Inhale 2 puffs into the lungs 2 times daily 06/12/2022 Active End: 03-14-2023 take 2 puff(s) [...] 2 Puffs as in structed as needed. calcium carbonate 500 mg chewable tablet (2 sources) take 2 tablets by mouth twice daily calcium carbonate (TUMS) 500 MG chewable tablet Take 2 tablets by mouth 2 times daily Active cetirizine hydrochloride 10 mg oral tablet (20 sources) Histamine-1 Receptor Antagonist Start: cetirizine 10 mg Tab Refills(s) 0 Start [...] once daily D-5000 125 MCG (5000 UT) TABS tablet TAKE 1 TABLET BY MOUTH EVERY DAY 08/03/2021 Active take 1 capsule by mouth in the m orning cholecalciferol (Vitamin D-3) 125 MCG (5000 UT) capsule Take 5,000 Units by mouth in the morning. Active Cholecalciferol (VITAMIN D3) 50 MCG (2000 UT) CAPS Take by mouth 0 Active Comment on above: Take 5,000 Units by mouth once daily. cholecalciferol, vitamin D3, (VITAMIN D3 ORAL) (16 sources) cholecalciferol, vitamin D3, (VITAMIN D3 ORAL) [...] extended release oral tablet (1 source) Uncompetitive C-gkbmxl-J-aspartate Receptor Antagonist, Sigma-1 Agonist take 30-600 mg [...] Start: 01-28-2022 take 1 capsule by mo [facility] once daily DULoxetine (CYMBALTA) 30 mg capsule TAKE 1 CAPSULE BY MOUTH EVERY DAY DO NOT CRUSH OR CHEW 01/28/2022 Active Start: 2021 Cymbalta Oral, Refills(s) 0 Start Date: 12/21/21 Status: Ordered take 2 capsules by [facility] once daily DULoxetine (CYMBALTA) 30 MG extended release capsule Take 2 capsules by mouth daily Active Comment on above: TAKE 1 CAPSULE BY [facility] EVERY DAY DO NOT CRUSH OR CHEW [id number] 0.3 ml EPINEPHrine 1 mg/ml auto-injector (20 [...] 2-ERMA IJ) Inject as directed. Active EPINEPHrine (EPI PEN 2-ERMA IJ) Inject [...] (FLONASE) 50 mcg/actuation nasal spray Use 1 [place] in each nostril twice daily. 3 Each 07/14/2021 10/19/2021 Active take 2 spray(s) nasa l route in the morning fluticasone (Flonase Sensimist) 27.5 MCG/SPRAY nasal spray Administer 2 sprays into each nostril in the morning. Active take 2 spray(s) nasa l route once daily fluticasone (VERAMYST) 27.5 mcg/actuation nasal spray Administer 2 sprays into each nostril once daily. Active Fluticasone Furo ate (FLONASE SENSIMIST) 27.5 mcg/actuation nasal spray 1 spray in each nostril Active Comment on above: Use 1 [place] in each nostril twice daily. 1 spray [...] 03/14/2023 Active 1.5 ml fremanezumab-vfrm 150 mg/ml prefilled syringe (20 sources) Start: 01-02-2024 End: 01-02-2024 fremanezumab-vfrm (AJOVY SYRINGE) 225 mg/1.5 mL Indications: Migraine without aura and without status migrainosus, not intractable Inject 4.5 mL (675 mg total) under the skin once for 1 dose. 4.5 mL 01/02/2024 01/02/2024 Active Start: 01-17-2022 End: 07-24-2023 fremanezumab-vfrm (AJOVY 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) 225 mg/1.5 mL INJECT 1.5 [...] 150 mg by mouth daily at bedtime. levalbuterol 2.5 mg/ml inhalation solution (20 sources) beta2-Adrenergic Agonist Start: 02-26-19 levalbuterol (Xopenex Concentrate) 1.25 MG/0.5ML nebulizer solution Indications: Moderate persistent asthma without complication (CMS/HCC) Take 0.5 mL (1.25 mg) by nebulization every 4 (four) hours if needed for wheezing or shortness of breath 60 each 2 02/27/2024 Active Start: 02-27-2024 levalbuterol ( Xopenex Concentrate) 1.25 MG/0.5ML nebulizer solution Indications: Moderate persistent asthma without complication (CMS/HCC) Take 0.5 mL (1.25 mg) by nebulization every 4 (four) hours if needed for wheezing or shortness of breath 60 each 2 02/27/2024 Active Start: 02-11-2024 take 2 puff(s) by in halation every four hours for wheezing levalbuterol (Xopenex HFA) 45 MCG/ACT inhaler Indications: Moderate persistent asthma without complication (CMS/HCC) Inhale 2 puffs every 4 (four) hours if needed for wheezing or shortness of breath 15 g 3 02/11/2024 Active Start: 2021 Xopenex NEB, T ID, Refills(s) 0 Start Date: 12/21/21 Status: Ordered [...] breath. levocetirizine dihydrochloride 5 mg oral tablet (19 sources) Histamine-1 Receptor Antagonist Start: 09-06-19 take 1 mg by mouth once daily in the evening Xyzal 5 mg oral tablet mg, tab(s), Oral, qPM, Refill(s) 0 Start Date: 09/05/22 Status: Ordered Levocetirizine D ihydrochloride (XYZAL PO) Take by mouth daily Active levothyroxine sodium 0.1 mg oral tablet (20 sources) l-Thyroxine Start: 02-22-2022 End: 05-01-2024 take 1 tablet by mouth in the [...] on Wednesdays linagliptin 5 mg oral tablet (5 sources) Dipeptidyl Peptidase 4 Inhibitor Start: 12-23-19 End: 10-10-19 take 1 tablet by mouth once daily Tradjenta 5 MG tablet Indications: Type 2 diabetes mellitus with hyperglycemia (CMS/HCC) TAKE 1 TABLET BY MOUTH EVERY DAY 90 tablet 1 10/01/2023 10/10/2023 Discontinued liothyronine sodium 0.005 mg oral tablet (14 sources) l-Triiodothyronine Start: 12-06-19 End: 03-31-19 take 1 tablet by mouth in the morning liothyronine (CYTOMEL) 5 MCG tablet Indications: 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 90 tablet 2 03/31/2024 Active LORazepam 0.5 mg oral tablet (20 [...] tablet (250 mg total) by mouth. Active magnesium 250 mg tablet Take 1 tablet (250 mg total) by mouth. 0 Active Magnesium 250 mg tab Take 250 mg by mouth. 0 Active Comment on above: Take 250 mg by mouth . magnesium gluconate 500 mg oral tablet (20 sources) take 1 tablet by mouth in the morning magnesium, as gluconate, (Magonate) 500 (27 Mg) MG tablet Take 27 mg by mouth in the morning and 27 mg before bedtime. Active magnesium glucon ate (MAGONATE) 500 mg tablet tablet Take 27 mg by mouth in the morning and 27 mg before bedtime. 600 mg. Active magnesium oxide 400 mg oral tablet [...] mg sublingual tablet (20 sources) Start: 04-05-2021 B-12, Methylcobalamin, 1000 MCG SUBL DISSOLVE 1 TABLET UNDER THE TONGUE ONCE DAILY 08/11/2021 Active Comment on above: once daily. methocarbamol [...] by mouth once daily montelukast (SINGULAIR) 10 MG tablet TAKE 1 TABLET BY MOUTH EVERY DAY AT NIGHT 90 tablet 3 10/31/2023 Active Comment on above: Take 10 mg by mouth once daily. Nurtec ODT (1 source) Start: 01-04-2023 take 75 mg by mouth once Nurtec ODT 75 mg, Oral, Once, Refills(s) 0 Start Date: 01/04/23 Status: Ordered ondansetron 4 mg disintegrating oral tablet (20 sources) Serotonin-3 Receptor Antagonist Start: 01-18-2022 take [...] pantoprazole 40 mg delayed release oral tablet (20 sources) Proton Pump Inhibitor Start: 11-09-19 take 1 tablet by mouth once daily before breakfast pantoprazole (PROTONIX) 40 MG tablet Take 1 tablet by mouth every morning (before breakfast) 90 tablet 1 11/09/2023 Active Start: 02-13-2023 take 1 tablet by shaji th twice daily Pantoprazole [address] Tab 40 mg = 1 tab(s), Oral, BID, # 60 tab(s), Refills(s) 3, Pharmacy: [facility]/pharmacy #[id number], 162, cm, 01/04/23 9:06:00 EST, Height/Length Dosing, 100.5, kg, 01/04/23 9:06:00 EST, Weight Dosing Start Date: 02/13/23 Status: Ordered perflutren lipid microspheres 1.3 mL in NaCl (PF) 0.9% 10 mL injection (VirtuOz) (20 sources) Start: 07-21-2021 End: 10-20-2022 perflutren lipid microspheres 1.3 mL in NaCl (PF) 0.9% 10 mL injection (DEFINITY) prasterone 10 mg oral capsule (20 sources) DHEA 10 MG capsu le Take 5 mg by mouth Active predniSONE 10 mg oral tablet (15 sources) Start: 02-27-2024 take 6 tablets by mouth once daily, then take 4 tablets by mouth once daily, then take 2 tablets by mouth once daily, then take 1 tablet by mouth once daily predniSONE (Deltasone) 10 MG tablet Indications: COVID-19 6 PO daily x 3 days, 4 PO daily x 3 days, 2 PO daily x 3 days, 1 PO daily x 3 days 39 tablet 02/27/2024 Active Start: 02-27-2024 take 6 tablets by mo [facility] once daily, then take 4 tablets by mouth once daily, then take 2 tablets by mouth once daily, then take 1 tablet by mouth once daily predniSONE (Deltasone) 10 MG tablet Indications: COVID-19 6 PO daily x 3 days, 4 PO daily x 3 days, 2 PO daily x 3 days, 1 PO daily x 3 days 39 tablet 02/27/2024 Active Start: 01-11-2022 predniSONE (DE LTASONE) 10 MG [...] Start: 08-24-2021 take 2 tablets by mo [facility] in the morning, then take 2 [...] daily. pyridostigmine bromide 60 mg oral tablet (20 sources) Start: take 3 tablets by mouth twice daily pyridostigmine (MESTINON) 60 mg tablet Take 180 mg by mouth two times a day. 07/21/2022 Active Start: 07-21-2022 End: 07-21-2023 pyridostigmine (MESTINON) 60 mg tablet Take 1 tablet (60 mg total) by mouth. 07/21/2022 07/21/2023 Active take 1 tablet by [...] (NURTEC PO) Take by mouth. 0 Active sAXagliptin 5 mg oral tablet (8 sources) Dipeptidyl Peptidase 4 Inhibitor Start: 5 take 1 tablet by mouth once daily sAXagliptin (Onglyza) 5 MG tablet Indications: Type 2 diabetes mellitus with hyperglycemia, without long-term current use of insulin ([facility]) TAKE 1 TABLET BY MOUTH EVERY DAY 90 tablet 3 02/11/2024 Active sertraline 100 mg oral tablet (20 sources) Serotonin Reuptake Inhibitor Start: 2 take 1 tablet by mouth once daily sertraline (Zoloft) 100 MG tablet Take 100 mg by mouth Daily 02/24/2023 Active Start: 06-11-2019 take 2 tablets by mo [...] (20 sources) Dipeptidyl Peptidase 4 Inhibitor Start: End: take 1 tablet by mouth once daily SITagliptin (Januvia) 100 MG tablet Indications: Type 2 diabetes mellitus with hyperglycemia, without long-term current use of insulin ([facility]) Take 1 tablet (100 mg) by mouth Daily 30 tablet 11 12/06/2023 02/11/2024 Discontinued Start: 11-23-2020 End: 10-10-2023 take 1 tablet by mouth once daily [...] Date: 09/05/22 Status: Ordered 28 actuat tiotropium 0.27525 mg/actuat inhalation spray (18 sources) Anticholinergic Start: 11-07-2023 End: 11-06-2024 tiotropium (Spiriva Respimat) 1.25 MCG/ACT inhaler Indications: Severe persistent asthma with (acute) exacerbation ([facility]) Inhale 2 puffs Daily 1 each 11/07/2023 11/06/2024 Active traZODone hydrochloride 100 mg oral tablet (9 sources) Serotonin Reuptake Inhibitor End: 06-10-2021 take 1 tablet by mouth once daily traZODone (DESYREL) 100 MG tablet Take 100 mg by mouth daily 0 Active Comment on above: Take 100 mg by mouth as needed. triamcinolone acetonide 1 mg/ml topical cream (20 sources) Corticosteroid Start: 07-10-2023 triamcinolone (Kenalog) 0.1 % cream Indications: Other specified dermatitis Apply to affected areas, up to twice a day when flared, do not use one the face, groin, or underarms, 30 day supply 80 g 11 07/10/2023 Active ubrogepant 100 mg oral tablet (20 sources) Start: 01-04-2023 take 50 mg by mouth once Ubrelvy 50 mg, Oral, Once, Refills(s) 0 Start Date: 01/04/23 Status: Ordered Start: 08-25-2021 take 1 tablet by shaji th every two hours as needed, then take 2 tablets by mouth every twenty-four hours as needed UBRELVY 100 mg tablet TAKE 1 TABLET BY MOUTH AT ONSET OF MIGRAINE. MAY REPEAT IN 2 HOURS NEEDED. MAX 2 TABLET IN 24 HOURS 08/25/2021 Active Start: 08-24-2021 End: 12-06-2023 take 1 tablet by mouth once as needed UBRELVY 100 mg tablet Take 100 mg by mouth once as needed (migraine) for up to 1 dose. 16 tablet 12 12/06/2023 Active Ubrogepant (Ubre lvy) 50 MG tablet Take by mouth. 0 Active Comment on above: TAKE 1 TABLET BY SHAJI TH AT ONSET OF MIGRAINE. MAY REPEAT IN 2 HOURS NEEDED. MAX 2 TABLET IN 24 HOURS vitamin b12 1 mg sublingual tablet (20 sources) Vitamin B12 Start: take 1 tablet [...] oral capsule (20 sources) Anti-epileptic Agent Start: 07-05-2023 End: 10-31-2023 take 2 capsules by mouth in the morning zonisamide (ZONEGRAN) 100 mg capsule TAKE 2 CAPSULES (200 MG TOTAL) BY MOUTH IN THE MORNING. 180 capsule 1 10/31/2023 Active Start: 02-06-2023 End: 07-05-2023 take 1 capsule by mouth once daily at dinner zonisamide (ZONEGRAN) 100 mg capsule TAKE 1 CAPSULE (100 MG TOTAL) BY MOUTH DAILY BEFORE EVENING MEAL. 90 capsule 1 02/06/2023 07/05/2023 Discontinued (Reorder) Start: 10-03-2022 End: 02-06-2023 take 2 capsules [...] every 6 (six) hours as needed. Active End: 06-10-2021 take 1 capsule by mouth every six hours as needed for sleep diphenhydrAMINE (BENADRYL) 50 MG capsule Take 1 capsule by mouth every 6 hours as needed for Itching or Sleep Active take [address] [facility] every six hours as needed diphenhydrAMINE (BENADRYL) 25 mg tablet Take 50 mg by mouth every 6 hours as needed. Active Comment on above: Take 50 mg [...] Comment on above: TAKE 1 CAPSULE BY [facility] TWICE A DAY FOR 10 DAYS EPINEPHrine (EPINEPHrine HCL) 1 mg/mL injection 0.3 mg (1 source) Start: 2 End: 2 EPINEPHrine (EPINEPHrine HCL) 1 mg/mL injection 0.3 mg 168 hr estradiol 0.26766 mg/hr transdermal system (4 sources) Estrogen Start: [...] THE SKIN ONCE PER WEEK estrogens, conjugated (half-way) 0.625 mg oral tablet (3 sources) Estrogen [...] 1.5 ml semaglutide 1.34 mg/ml pen injector (6 sources) Start: 10-10-2023 End: 11-07-2023 semaglutide (Ozempic, 0.25 or 0.5 MG/DOSE,) 2 MG/1.5ML solution pen-injector Indications: Type 2 diabetes mellitus with hyperglycemia, without long-term current use of insulin ([facility]) 0.25 mg SC weekly x [...] Classification Problem Date Documented Da te Episodic/Chronic Administrative/social admission (2 sources) Encounter for pre-employment examination; Translations: [Encounter for pre-employment examination] Onset: 4 Episodic Anxiety disorders (20 sources) Anxiety; Translations: [...] [POTS (postural orthostatic tachycardia syndrome)] 10-01-2023 Chronic Coagulation and hemorrhagic disorders (20 sources) Blood coagulation disorder; Translations: [Coagulation defect, unspecified] Onset: 5 02-23-2014 Chronic Diabetes mellitus with complications (20 sources) Type 2 diabetes mellitus with hyperglycemia; Translations: [Hyperglycemia due to type 2 diabetes mellitus] Onset: 1 Chronic Diabetes mellitus without complication (20 sources) Type 2 diabetes mellitus; Translations: [Diabetes mellitus] Onset: 1 12-16-2021 Chronic Disorders of lipid metabolism (20 sources) Hyperlipidemia; Translations: [Hyperlipidemia, unspecified] Onset: 6 01-12-2023 Chronic Esophageal disorders (20 sources) Gastroesophageal reflux disease; Translations: [Gastro-esophageal reflux disease without esophagitis] Onset: 6 Chronic Essential hypertension (1 source) Hypertensive disorder; Translations: [Essential (primary) hypertension] Chronic Headache; including migraine (20 sources) Chronic intractable migraine without aura; Translations: [Chronic migraine without aura, intractable, without status migrainosus] Onset: 1 Chronic Headache; including migraine (4 sources) Headache; including migraine; Translations: [HEADACHE UNSPECIFIED] Onset: 2 Inflammatory diseases of female pelvic organs (1 source) Hydrosalpinx; Translations: [Chronic salpingitis] Chronic Mood disorders (20 sources) Depressive disorder; Translations: [Depression, unspecified depression type] Onset: 1 Chronic Nausea and vomiting (1 source) Intractable nausea and vomiting; Translations: [Nausea with vomiting, unspecified] Episodic Nutritional deficiencies (20 sources) Vitamin D deficiency; Translations: [Vitamin D deficiency, unspecified] Onset: 3 12-16-2021 Chronic Other aftercare (1 source) Other assisted (current) drug therapy; Translations: [OTH CORRECTIONAL LIEUTENANT CURRENT DRUG THERAPY] Onset: 3 Episodic Other [...] Episodic Other ear and sense organ disorders (20 sources) Hearing loss; Translations: [Unspecified hearing loss, unspecified ear] Onset: 6 01-12-2023 Chronic Other endocrine disorders (3 sources) Polycystic ovary syndrome; Translations: [Polycystic ovarian syndrome] Onset: 5 11-20-2023 Chronic Other endocrine disorders (3 sources) Disorder of endocrine system; Translations: [Endocrine disorder, unspecified] Onset: 5 11-20-2023 Episodic Other female genital disorders (20 sources) Pain in female genitalia on intercourse; Translations: [Unspecified dyspareunia] Onset: 3 12-16-2021 Chronic Other gastrointestinal disorders (20 sources) Irritable bowel syndrome; Translations: [Irritable bowel [...] 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 Other infections; including parasitic (20 sources) Late effects of other and unspecified infectious and parasitic diseases; 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] Onset: 2 Chronic Other infections; including parasitic (16 sources) Post-viral disorder; Translations: [Sequelae of other specified infectious and parasitic diseases] Onset: 2 02-10-2021 Chronic Other infections; including parasitic (8 sources) Personal history of other infectious and parasitic diseases; Translations: [History of COVID-19] Episodic Other injuries and conditions due to external causes (1 source) Angioedema; Translations: [Angioneurotic edema, initial encounter] Episodic Other injuries and conditions due to external causes (4 sources) Allergic reaction; Translations: [Allergy, unspecified, subsequent [...] 6 04-07-2015 Chronic Other nervous system disorders (20 sources) Disorder of autonomic nervous system; Translations: [Disorder of the autonomic nervous system, unspecified] Onset: 2 Chronic Other nervous system disorders (1 source) Circadian rhythm sleep disorder of shift work type; Translations: [Circadian rhythm sleep disorder, 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 Other nervous system disorders (20 sources) Arachnoid cyst; Translations: [Cerebral cysts] Onset: 6 12-16-2021 Chronic Other nervous system disorders (1 source) Demyelinating disease of central nervous system, unspecified; Translations: [Demyelinating disease of central nervous system (HCC)] Onset: 2 Chronic Other nervous system disorders (1 source) Disorder of the autonomic nervous system, unspecified; [...] Chronic Other nutritional; endocrine; and metabolic disorders (3 sources) Body mass index 30+ - obesity; Translations: [Body mass index (BMI) 38.0-38.9, adult] 01-04-2023 Chronic Other nutritional; endocrine; and metabolic disorders (1 source) Metabolic syndrome X 12-22-2022 Chronic Other nutritional; endocrine; and metabolic disorders (1 source) Morbid obesity 12-22-2022 Chronic Other nutritional; endocrine; and metabolic disorders (10 sources) Severe obesity; Translations: [Class 2 severe obesity due to excess calories with serious comorbidity and body mass index (BMI) of 37.0 to 37.9 in adult ([facility])] Onset: 5 02-11-2024 Chronic Other skin disorders (7 sources) Night [...] Onset: 6 Chronic Other upper respiratory disease (20 sources) Allergic rhinitis due to pollen; Translations: [Allergic rhinitis due to pollen] Onset: 6 04-09-2023 Chronic Other upper respiratory disease (1 source) Cyst of maxillary sinus; Translations: [Cyst and mucocele of nose and nasal sinus] Episodic Other upper respiratory disease (1 source) Hoarse; Translations: [Dysphonia] Episodic Other upper respiratory disease (3 sources) Vocal cord dysfunction; Translations: [Other diseases of vocal cords] 11-07-2023 Episodic Other upper respiratory infections (1 source) Chronic sinusitis; Translations: [Chronic sinusitis, unspecified] 09-08-2023 Chronic Residual codes; unclassified (20 sources) Obstructive sleep apnea syndrome; Translations: [Obstructive sleep apnea (adult) (pediatric)] Onset: 1 Chronic Residual codes; unclassified (1 source) Sleep paralysis; Translations: [Other sleep disorders] Chronic Residual codes; unclassified (1 source) Poor sleep pattern; Translations: [Other sleep disorders] Chronic Residual codes; unclassified (1 source) Hypersomnia, unspecified; Translations: [Hypersomnia, unspecified] Onset: 2 Chronic Residual codes; unclassified (1 source) Sleep apnea, unspecified; Translations: [Sleep apnea, unspecified] Onset: 2 Chronic Residual codes; unclassified (1 source) Obstructive sleep apnea (adult) (pediatric); Translations: [Obstructive sleep apnea (adult) (pediatric)] Onset: 1 Chronic Residual codes; unclassified (1 source) Unable [...] of other mental and behavioral disorders] Episodic Sprains and strains (1 source) Low back strain; Translations: [Strain of muscle, fascia and tendon of lower back, initial encounter] Episodic Thyroid disorders (20 sources) Hypothyroidism, unspecified; [...] Translations: [Post covid-19 condition, unspecified] Onset: 2 Unclassified (1 source) 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; Translations: [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] Onset: 2 Viral infection (20 sources) Disease caused by 2019-nCoV; Translations: [COVID-19] Onset: 1 Resolved: Episodic Past or Other Problems Problem Classification Problem Date Documented Date Episodic/Chronic Abdominal hernia (20 sources) Right inguinal hernia ; Translations: [Unilateral [...] 01-16-2023 Episodic Genitourinary symptoms and ill-defined conditions (20 sources) Stress incontinence (female) (male); Translations: [Genuine stress incontinence] Onset: 2021 Resolved: 04-09-2023 Chronic Genitourinary symptoms and ill-defined conditions (20 sources) Blood in urine; Translations: [Gross hematuria] Onset: 11-16-2021 Resolved: 01-16-2023 Episodic Headache; including migraine (20 sources) Headache; Translations: [Worsening headaches] Onset: 12-22-2015 Resolved: 01-16-2023 Episodic Immunizations and screening for infectious disease (1 source) Encounter for screening for human papillomavirus (HPV); Translations: [ENC SCREENING HUMAN PAPILLOMAVIRUS] Onset: 08-04-2021 Episodic Lymphadenitis (4 sources) Lymphadenopathy; Translations: [Generalized enlarged lymph nodes] Onset: 11-16-2021 Episodic Malaise and fatigue (20 sources) Malaise and fatigue; Translations: [Other malaise] Onset: 03-02-2021 05-24-2021 Episodic Mood disorders (16 sources) Mood disorders Onset: 01-04-2023 01-04-2023 Nonmalignant [...] 05-24-2021 05-24-2021 Episodic Other connective tissue disease (20 sources) Muscle spasm of cervical muscle of neck; Translations: [Other muscle spasm] Onset: 03-02-2021 01-12-2023 Episodic Other connective tissue disease (1 source) Other muscle spasm; Translations: [Other muscle spasm] Onset: 03-02-2021 Episodic Other connective tissue disease (19 sources) Unspecified symptoms and signs involving the nervous system; Translations: [Other symptoms involving nervous and musculoskeletal systems] Onset: 03-02-2021 03-02-2021 Episodic Other diseases of bladder and urethra (20 sources) Urethral stricture; Translations: [Unspecified urethral stricture, male, unspecified site] Onset: 01-12-2023 02-27-2022 Episodic Other nervous system disorders (20 sources) Word finding difficulty ; Translations: [Other speech disturbances] Onset: 03-02-2021 01-12-2023 Episodic Other nervous system disorders (1 source) Other speech disturbances; Translations: [Other speech disturbances] Onset: 03-02-2021 Episodic Other nervous system disorders (16 sources) Impaired cognition; Translations: [Other symptoms and signs involving cognitive functions and awareness] Onset: 03-02-2021 03-02-2021 Episodic Other screening for suspected conditions (not mental disorders or infectious disease) (20 sources) Patient encounter status; Translations: [Encounter for screening for other suspected endocrine disorder] Onset: 06-14-2021 Episodic Other skin disorders (4 sources) Localized swelling, mass and lump, upper limb, bilateral; Translations: [LOC SWELL MASS LUMP UP LIMB LARS] Onset: 10-19-2021 Episodic Other upper respiratory infections (20 sources) Acute pansinusitis; Translations: [Acute pansinusitis, unspecified] Onset: 04-09-2023 Resolved: 10-10-2023 10-10-2023 Episodic Ovarian cyst (20 sources) Cyst of left ovary; Translations: [Unspecified ovarian cyst, left side] Onset: 01-12-2023 Episodic Residual codes; unclassified (20 sources) Hypersomnia with sleep apnea; Translations: [Hypersomnia, unspecified] Onset: 03-02-2021 Resolved: 04-09-2023 01-12-2023 Chronic Residual codes; unclassified (20 sources) Diffuse [...] ORGN] Onset: 10-23-2021 Episodic Residual codes; unclassified (20 sources) Memory impairment; Translations: [Other amnesia] Onset: 03-02-2021 01-12-2023 Episodic Residual codes; unclassified (20 sources) Bilateral lower limb edema; Translations: [Localized edema] Onset: 04-09-2023 04-09-2023 Episodic Residual codes; unclassified (1 source) Other amnesia; Translations: [Other amnesia] Onset: 03-02-2021 Episodic Spondylosis; intervertebral disc disorders; other back problems (20 sources) Pain in thoracic spine; Translations: [Neck pain] Onset: 03-02-2021 01-12-2023 Episodic Syncope (20 sources) Near syncope; Translations: [Syncope and collapse] Onset: 05-24-2022 Resolved: 01-16-2023 Episodic Unclassified (1 source) LOW BACK PAIN, UNSPECIFIED; Translations: [LOW BACK PAIN, UNSPECIFIED] Onset: 02-15-2022 Results Test Name Value Interpretation Reference Range Facility ALLERGENS W/COMP RFLX AREA 5 on 05-02-2024 CLASS DESCRIPTION Comment . [facility] Comment on above: Levels of Specific I gE Class Description of Class ----- < 0.10 0 Negative 0.10 - 0.31 0/I Equivocal/Low 0.32 - 0.55 I Low 0.56 - 1.40 II Moderate 1.41 - 3.90 III High 3.91 - 19.00 IV Very High 19.01 - 100.00 V Very High >100.00 Very High [id number] D PTERONYSSINUS <0.10 Class 0 kU/L [facility] R051-HZD D FARINAE <0.10 Class 0 kU/L [facility] F387-RWD CAT DANDER <0.10 Class 0 kU/L [facility] N487-OBV DOG DANDER <0.10 Class 0 kU/L [facility] M456-UFJ MOUSE URINE <0.10 Class 0 kU/L [facility] Comment on above: Performed at: [address] [id number] Assistant Controller: Guerrero Bojorquez MD, Phone: [phone] [id number]-LBD BERMUDA GRASS <0.10 Class 0 kU/L [facility] V873-LFE LAURYN GRASS <0.10 Class 0 kU/L [facility] M773-ZRL COCKROACH, LAO <0.10 Class 0 kU/L [facility] IMMUNOGLOBULIN E, TOTAL <2 Abnormal [facility] Interpretation and review of laboratory results Abnormal [facility] V750-ILN PENICILLIUM CHRYSOGEN <0.10 Class 0 kU/L [facility] T676-ZDO CLADOSPORIUM HERBARUM <0.10 Class 0 kU/L [facility] D148-OMU ASPERGILLUS FUMIGATUS <0.10 Class 0 kU/L [facility] E907-VVP ALTERNARIA ALTERNATA <0.10 Class 0 kU/L [facility] S141-ACI MAPLE/BOX ELDER <0.10 Class 0 kU/L [facility] C509-JLI COMMON SILVER BIRCH <0.10 Class 0 kU/L [facility] Y861-IAI CEDAR, MOUNTAIN <0.10 Class 0 kU/L [facility] C253-AWC OAK, WHITE <0.10 Class 0 kU/L [facility] P150-FTO ELM, SPANISH <0.10 Class 0 kU/L [facility] T651-STK W[place] <0.10 Class 0 kU/L [facility] Y739-ECT MAPLE LEAF [place] <0.10 Class 0 kU/L [facility] P237-DRG [place] <0.10 Class 0 kU/L [facility] A796-CCI REEMA, WHITE <0.10 Class 0 kU/L [facility] W816-BOU PECAN, HICKORY <0.10 Class 0 kU/L [facility] E725-XVU WHITE MULBERRY <0.10 Class 0 kU/L [facility] M825-RNO RAGWEED, SHORT <0.10 Class 0 kU/L [facility] T973-SKG THISTLE, MONEGASQUE <0.10 Class 0 kU/L [facility] I524-SUG PIGWEED, COMMON <0.10 Class 0 kU/L [facility] M084-ERX SHEEP SORREL <0.10 Class 0 kU/L [facility] CLINISYNC [facility] MLR HEMOGLOBIN A1Con 025 Glucose [Mass/Vol] 120 mg/dL [facility] HbA1c (Bld) [Mass fraction] 5.8 % 4.5 - 6.2 % [facility] Comment on above: ADA RECOMMENDED LIMI T 4.0 - 6.0 ADA THERAPEUTIC TARGET < 7.0 ACTION SUGGESTED > 7.0 [facility] FREE T3on 02-05-2024 Free T3 [Mass/Vol] 2.70 pg/mL Normal 2.50-3.90 [facility] Comment on above: Performed By: #### 3 016-3, 3051-0, 3027 #### [facility] ([id number]) [address] [place] [address] FREE T4on 02-05-2024 Free T4 [Mass/Vol] 0.75 ng/dL Normal 0.61-1.60 [facility] Comment on above: Performed By: #### 3 016-3, 3050-0, 3027 #### [facility] ([id number]) [address] [place] [address] TSH Qnon 02-05-2024 TSH 0.44 uIU/mL Low 0.49-4.67 [facility] Comment on above: Performed By: #### 3 016-3, 305-0, 3027 #### [facility] ([id number]) [address] [place] [address] Measles (Rubeola) Imon 12-27 Measles (Rubeola) Im 2.45 Normal >1.09 [facility] Comment on above: Result Comment: Interpretation: IMMUNE Reference Range: <0.91 Not Immune 0.91-1.09 Equivocal >1.09 Immune Performed By: #### R UBI, BALTAZAR, VZI, GRICELDA #### [employer] [facility] [place], [place] [id number] Assistant Controller: Emanuel Reaves MD Mumps,Immun,Abon 12-28-2023 Mumps,Immun,Ab 3.42 Normal >1.09 [facility] Comment on above: Result Comment: Interpretation: IMMUNE Reference Range: <0.91 Not Immune 0.91-1.09 Equivocal >1.09 Immune Performed By: #### R UBI, BALTAZAR, VZI, GRICELDA #### [facility] [address] [place], [place] [id number] Assistant Controller: Emanuel Reaves MD VZ Immunityon 12-28-2023 VZ Immunity 1.85 Normal >1.09 [facility] Comment on above: Result Comment: Interpretation: IMMUNE Reference Range: <0.91 Not Immune 0.91-1.09 Equivocal >1.09 Immune Performed By: #### R UBI, BALTAZAR, VZI, GRICELDA #### [facility] [place], [place] [id number] Assistant Controller: Emanuel Reaves MD MHPT RUBELLA AB, IGGon 12-26 MHPT RUBELLA AB, IGG 62.7 IU/mL [facility] Comment on above: <10 NON REACTIVE Negative for Anti-Rubella IgG >=10 REACTIVE Positive for Anti Rubella IgG The presence of IgG antibody to Rubella virus is an indication of previous exposure either by prior infection or vaccination. Original Ordering Pr ovider: [place] [facility] Rubella Ab, IgGon 12-27-2023 Rubella Ab, IgG 62.7 IU/mL Normal [facility] Comment on above: Result Comment: <10 NON REACTIVE Negative for Anti-Rubella IgG >=10 REACTIVE Positive for Anti Rubella IgG The presence of IgG antibody to Rubella virus is an indication of previous exposure either by prior infection or vaccination. Performed By: #### R UBI, BALTAZAR, VZI, GRICELDA #### [facility] [address] [place] [id number] Assistant Controller: Emanuel Reaves MD Rubella antibody, IgGon 12-07 Rubella virus IgG IA Ql 62.7 IU/mL [facility] Comment on above: <10 NON REACTIVE Negative for Anti-Rubella IgG >=10 REACTIVE Positive for Anti Rubella IgG The presence of IgG antibody to Rubella virus is an indication of previous exposure either by prior infection or vaccination. [facility] IGP,APTIMA HPV,AGE GDLNon AGE GDLN ACOG TESTING Note . [facility] Comment on above: TESTS RESULT FLAG UN ITS REF RANGE LAB Clinician Provided Cytology Information Source.............Vagina No. of containers..01 ThinPrep Vial Age Algo ACOG Ashia... FLAG LEGEND: L-Low Normal,H-High Normal,LL-Alert Low,HH-Alert High <-Panic Low,>-Panic High,A-Abnormal,AA-Critical Abnormal Performed at: 01 =[address] [address] Maryjo Saez MD, HPV APTIMA Negative Negative [facility] Comment on above: This nucleic acid am plification test detects fourteen high- risk HPV types (16,18,31,33,35,39,45,51,52,56,58,59,66,68) without differentiation. Performed at: = - [address] [id number] Assistant Controller: Maryjo Saez MD, Phone: [phone] Performed at: - [address] [id number] Assistant Controller: Maryjo Saez MD, Phone: [phone] IGP, APTIMA HPV, RFX 16/18,45 Note . [facility] Comment on above: TESTS RESULT FLAG UN [facility] REF RANGE LAB DIAGNOSIS: 02 NEGATIVE FOR INTRAEPITHELIAL LESION OR MALIGNANCY. Specimen adequacy: 02 Satisfactory for evaluation. No endocervical component is identified. Performed by: 02 Kelly Burns, Software Sales Executive ([facility]) . 02 Note: Note 02 The Pap smear is a screening test designed to aid in the detection of premalignant and malignant conditions of the uterine cervix. It is not a diagnostic procedure and should not be used as the sole means of detecting cervical cancer. Both false-positive and false-negative reports do occur. Test Methodology: Note 02 This liquid based ThinPrep(R) pap test was screened with the use of an image guided system. HPV Genotype Reflex Note 02 Criteria not met, HPV Genotype not performed. FLAG LEGEND: L-Low Normal,H-High Normal,LL-Alert Low,HH-Alert High <-Panic Low,>-Panic High,A-Abnormal,AA-Critical Abnormal Performed at: [address] [place] [address] Maryjo Saez MD, SPATULA-ALONE VAGINA [facility] [employer] ALL THYROXINE (T4) FREEon Free T4 [Mass/Vol] 0.89 ng/dL 0.76 - 1.46 ng/dL [facility] [employer]) [facility] PharmaceuticalsF[facility] [employer] ([employer] Reminderson 10-16-2023 Reminders Reminders From: Matt Nguyễn [...] ) Other: PROVIDER RELATED REMINDER:_ ( ) Multimedia Authoring Specialist ( ) Call Pharmacy ( ) Call Lab ( ) Other: Special Instructions:_ Comments:_ Normal [facility] Telemedicineon 10-10-2023 Telemedicine [phone] Megan Tran 1985 F Date Provider Department Center 10/10/2023 [facility] CARD [facility] HeartVAS Family History Problem [...] Alive Son Alive Son Alive Level of Service:17279 [place] OFFICE/OUTPATIENT ESTABLISHED LOW MDM 20 MIN Reason for Visit and Comments: Orthostatic Intolerance [Other] Normal [facility] Urology Office/Clinic Noteon 10-04-2023 Urology Office/Clinic Note Urology Office/Clinic Note Chief Complaint kidney stone, angiomyolipoma, gross hematuria HPI Staff 1 yr w/ GORDON. Dx: kidney stone, angiomyolipoma, gross hematuria, urethral stricture. *Has Flomax for stone passage GORDON done 08/21/23 at [facility]. Dysuria: denies Incomplete bladder emptying: denies Hematuria: [...] with voice recognition artificial intelligence software, specifically [employer], [employer] and or [employer]. Substitutions may have occurred due to the [...] esophagogastroduodenoscopy (01/31 (more content not included)... Normal [facility] Comment on above: Result Comment: Elec tronically Signed By: CHELO Choe APRN, Selma Benavides\.br\Date and Time Signed: 10/04/23 08:36 EDT Ambulatory Visit Summaryon 0 10-02-2023 Ambulatory Visit Summary Ambulatory Visit Summary LEANA TRAN :1985 Visit Date:10/02/2023 Ambulatory Visit Instructions Your Diagnosis Angiomyolipoma Kidney stone Gross hematuria Unspecified urethral stricture, female Your Care Team Attending Physician - CHELO Choe APRN, Selma Benavides Primary Care Physician - CAS DOWELL MD [...] for choosing us for your care. Normal [facility] CBC W Auto Differential pane l (Bld)on 10-01-2023 Basophils (Bld) [#/Vol] 0.04 10*3/uL Normal <0.11 [facility] Comment on above: Order Comment: Speci men Type: BLOOD SPECIMEN Ordering Facility: [facility] Address: [address] [place] [address] Performed By: #### 5 7021-8 #### [facility] CLIA [id number] [address] [place] [address] Basophils/100 WBC (Bld) 0.7 % Normal [facility] Comment on above: Order Comment: Speci men Type: BLOOD SPECIMEN Ordering Facility: [facility] Address: [address] [place] [address] Performed By: #### 5 7021-8 #### [facility] CLIA [id number] [address] [place] [address] Differential cell count method Nom (Bld) Auto Normal [facility] Comment on above: Order Comment: Speci men Type: BLOOD SPECIMEN Ordering Facility: [facility] Address: [address] [place] [address] Performed By: #### 5 7021-8 #### [facility] CLIA [id number] [address] [place] [address] Eosinophils (Bld) [#/Vol] 0.15 10*3/uL Normal <0.46 [facility] Comment on above: Order Comment: Speci men Type: BLOOD SPECIMEN Ordering Facility: [facility] Address: [address] [place] [address] Performed By: #### 5 7021-8 #### [facility] CLIA [id number] [address] [place] [address] Eosinophils/100 WBC (Bld) 2.6 % Normal [facility] Comment on above: Order Comment: Speci men Type: BLOOD SPECIMEN Ordering Facility: [facility] Address: [address] [place] [address] Performed By: #### 5 7021-8 #### [facility] CLIA [id number] [address] [place] [address] Erythrocyte distribution width (RBC) [Ratio] 11.6 % Normal 11.5-15.0 [facility] Comment on above: Order Comment: Speci men Type: BLOOD SPECIMEN Ordering Facility: [facility] Address: [address] [place] [address] Performed By: #### 5 7021-8 #### [facility] CLIA [id number] [address] [place] [address] Hematocrit (Bld) [Volume fraction] 41.7 % Normal 36.0-46.0 [facility] Comment on above: Order Comment: Speci men Type: BLOOD SPECIMEN Ordering Facility: [facility] Address: [address] [place] [address] Performed By: #### 5 7021-8 #### [facility] CLIA [id number] [address] [place] [address] Hemoglobin (Bld) [Mass/Vol] 14.7 g/dL Normal 11.5-15.5 [facility] Comment on above: Order Comment: Speci men Type: BLOOD SPECIMEN Ordering Facility: [facility] Address: [address] [place] [address] Performed By: #### 5 7021-8 #### [facility] CLIA [id number] [address] [place] [address]008 Immature granulocytes (Bld) [#/Vol] 0.03 10*3/uL Normal <0.10 [facility] Comment on above: Order Comment: Speci men Type: BLOOD SPECIMEN Ordering Facility: [facility] Address: [address] [place] [address] Performed By: #### 5 7021-8 #### [facility] CLIA [id number] [address] [place] [address] Immature granulocytes/100 WBC (Bld) 0.5 % Normal [facility] Comment on above: Order Comment: Speci men Type: BLOOD SPECIMEN Ordering Facility: [facility] Address: [address] [place], [place] [address] Performed By: #### 5 7021-8 #### [facility] CLIA [id number] [address] [place] [address] Lymphocytes (Bld) [#/Vol] 1.23 10*3/uL Normal 1.00-4.00 [facility] Comment on above: Order Comment: Speci men Type: BLOOD SPECIMEN Ordering Facility: [facility] Address: [address] [place] [address] Performed By: #### 5 7021-8 #### [facility] CLIA [id number] [address] [place] [address] Lymphocytes/100 WBC (Bld) 21.4 % Normal [facility] Comment on above: Order Comment: Speci men Type: BLOOD SPECIMEN Ordering Facility: [facility] Address: [address] [place] [address] Performed By: #### 5 7021-8 #### [facility] CLIA [id number] [address] [place] [address] MCH (RBC) [Entitic mass] 30.2 pg Normal 26.0-34.0 [facility] Comment on above: Order Comment: Speci men Type: BLOOD SPECIMEN Ordering Facility: [facility] Address: [address] [place] [address] Performed By: #### 5 7021-8 #### [facility] CLIA [id number] [address] [place] [address]165 MCHC (RBC) [Mass/Vol] 35.3 g/dL Normal 30.5-36.0 [facility] Comment on above: Order Comment: Speci men Type: BLOOD SPECIMEN Ordering Facility: [facility] Address: [address] [place] [address] Performed By: #### 5 7021-8 #### [facility] CLIA [id number] [address] [place] [address] MCV (RBC) [Entitic vol] 85.8 fL Normal 80.0-100.0 [facility] Comment on above: Order Comment: Speci men Type: BLOOD SPECIMEN Ordering Facility: [facility] Address: [address] [place] [address] Performed By: #### 5 7021-8 #### [facility] CLIA [id number] [address] [place] [address] Monocytes (Bld) [#/Vol] 0.24 10*3/uL Normal <0.87 [facility] Comment on above: Order Comment: Speci men Type: BLOOD SPECIMEN Ordering Facility: [facility] Address: [address] [place] [address] Performed By: #### 5 7021-8 #### [facility] CLIA [id number] [address] [place] [address] Monocytes/100 WBC (Bld) 4.2 % Normal [facility] Comment on above: Order Comment: Speci men Type: BLOOD SPECIMEN Ordering Facility: [facility] Address: [address] [place] [address] Performed By: #### 5 7021-8 #### [facility] CLIA [id number] [address] [place] [address] Neutrophils (Bld) [#/Vol] 4.06 10*3/uL Normal 1.45-7.50 [facility] Comment on above: Order Comment: Speci men Type: BLOOD SPECIMEN Ordering Facility: [facility] Address: [address] [place] [address] Performed By: #### 5 7021-8 #### [facility] CLIA [id number] [address] [place] [address] 46468 Neutrophils/100 WBC (Bld) 70.6 % Normal [facility] Comment on above: Order Comment: Speci men Type: BLOOD SPECIMEN Ordering Facility: [facility] Address: [address] [place] [address] Performed By: #### 5 7021-8 #### [facility] CLIA [id number] [address] [place] [address] 34193 Nucleated RBC (Bld) [#/Vol] 10*3/uL Normal <0.01 [facility] Comment on above: Order Comment: Speci men Type: BLOOD SPECIMEN Ordering Facility: [facility] Address: [address] [place] [address] Performed By: #### 5 7021-8 #### [facility] CLIA [id number] [address] [place] [address]31 Nucleated RBC/100 WBC (Bld) [Ratio] 0.0 /100 WBC Normal [facility] Comment on above: Order Comment: Speci men Type: BLOOD SPECIMEN Ordering Facility: [facility] Address: [address] [place] [address] Performed By: #### 5 7021-8 #### [facility] CLIA [id number] [address] [place] [address] 22656 Platelet mean volume (Bld) [Entitic vol] 10.0 fL Normal 9.0-12.7 [facility] Comment on above: Order Comment: Speci men Type: BLOOD SPECIMEN Ordering Facility: [facility] Address: [address] [place] [address] Performed By: #### 5 7021-8 #### [facility] CLIA [id number] [address] [place] [address] 21152 Platelets (Bld) [#/Vol] 241 10*3/uL Normal 150-400 [facility] Comment on above: Order Comment: Speci men Type: BLOOD SPECIMEN Ordering Facility: [facility] Address: [address] [place] [address] Performed By: #### 5 7021-8 #### [facility] CLIA [id number] [address] [place] [address] 48267 RBC (Bld) [#/Vol] 4.86 10*6/uL Normal 3.90-5.20 [facility] Comment on above: Order Comment: Speci men Type: BLOOD SPECIMEN Ordering Facility: [facility] Address: [address] [place] [address] Performed By: #### 5 7021-8 #### [facility] CLIA [id number] [address] [place] [address] WBC (Bld) [#/Vol] 5.75 10*3/uL Normal 3.70-11.00 [facility] Comment on above: Order Comment: Speci men Type: BLOOD SPECIMEN Ordering Facility: [facility] Address: [address] [place] [address] Performed By: #### 5 7021-8 #### [facility] CLIA [id number] [address] [place], [place] [address] [facility] CBC W AUTO DIFF BLDon Basophils/100 WBC (Bld) 0.7 % [facility] BASOPHILS # BLD AUTO 0.04 [facility] DIFFERENTIAL METHOD BLD Auto [facility] EOSINOPHIL # BLD AUTO 0.15 [facility] LYMPHOCYTES # BLD AUTO 1.23 [facility] MONOCYTES # BLD AUTO 0.24 [facility] NEUTROPHILS # BLD AUTO 4.06 [facility] NRBC # BLD AUTO <0.01 [facility] NRBC/100 WBC BLD-RTO 0.0 /100 WBC [facility] PLATELET # BLD AUTO 241 [facility] PMV BLD AUTO 10.0 fL 9.0 - 12.7 fL [facility] WBC # BLD AUTO 5.75 [facility] Eosinophils/100 WBC (Bld) 2.6 % [facility] Erythrocyte distribution width (RBC) [Ratio] 11.6 % 11.5 - 15.0 % [facility] Hematocrit (Bld) [Volume fraction] 41.7 % 36.0 - 46.0 % [facility] Hemoglobin (Bld) [Mass/Vol] 14.7 g/dL 11.5 - 15.5 g/dL [facility] IMM GRANULOCYTES # BLD AUTO 0.03 NINF [facility] IMM GRANULOCYTES/LEUK NFR BLD AUTO 0.5 % [facility] Lymphocytes/100 WBC (Bld) 21.4 % [facility] MCH (RBC) [Entitic mass] 30.2 pg 26.0 - 34.0 pg [facility] MCHC (RBC) [Mass/Vol] 35.3 g/dL 30.5 - 36.0 g/dL [facility] MCV (RBC) [Entitic vol] 85.8 fL 80.0 - 100.0 fL [facility] Monocytes/100 WBC (Bld) 4.2 % [facility] Neutrophils/100 WBC (Bld) 70.6 % [facility] RBC (Bld) [#/Vol] 4.86 10*6/uL 3.90 - 5.20 m/uL [facility] Specimen Type: BLOOD SPECIMEN Ordering Facility: [facility] Address: [address] [place] [address] Original Ordering Provider: [facility] CNOVSPon 10-01-2023 CNOVSP Visit (SP) Office (H EMASA) LEANA TRAN ([id number]) 1985 F Date Time Provider Department 10/01/23 9:45 AM FUENTES AMARAL During your visit today, we recorded the following information about you: Temperature Pulse Respiration Blood pressure 97 degrees 71/minute 16/minute 123/84 Weight Height 100 kg 1.626 m Fuentes Amaral MD 10/03/2023 7:47 AM Signed NAME: Leana Tran [facility] NO.: [id number] DATE OF SERVICE: October 01, 2023 (Munir) [...] one m (more content not included)... Normal [facility] Comprehensive metabolic 2000 panelon 10-01-2023 Albumin [Mass/Vol] 4.4 g/dL Normal 3.9-4.9 [facility] Comment on above: Order Comment: Dulce Maria jules Type: BLOOD SPECIMEN Ordering Facility: [facility] Address: [address] [place] [address] [place] [address] Performed By: #### 2 4323-8 #### [facility] CLIA [id number] [address] [place] [address] [place] ALP [Catalytic activity/Vol] 73 U/L Normal 34-123 [facility] Comment on above: Order Comment: Speci men Type: BLOOD SPECIMEN Ordering Facility: [facility] Address: [address] [place] [address] Performed By: #### 2 4323-8 #### [facility] CLIA [id number] [address] [place] [address] [place] ALT [Catalytic activity/Vol] 25 U/L Normal 7-38 [facility] Comment on above: Order Comment: Speci men Type: BLOOD SPECIMEN Ordering Facility: [facility] Address: [address] [place] [address] Performed By: #### 2 4323-8 #### [facility] CLIA [id number] [address] [place] [address] [place] Anion gap [Moles/Vol] 9 mmol/L Normal 8-15 [facility] Comment on above: Order Comment: Speci men Type: BLOOD SPECIMEN Ordering Facility: [facility] Address: [address] [place] [address] Performed By: #### 2 4323-8 #### [facility] CLIA [id number] [address] [place] [address] [place] AST [Catalytic activity/Vol] 21 U/L Normal 13-35 [facility] Comment on above: Order Comment: Speci men Type: BLOOD SPECIMEN Ordering Facility[facility] Address: [address] [place] [address] Performed By: #### 2 4323-8 #### [facility] CLIA [id number] [address] [place] [address] [place] Bilirubin [Mass/Vol] 0.5 mg/dL Normal 0.2-1.3 [facility] Comment on above: Order Comment: Speci men Type: BLOOD SPECIMEN Ordering Facility: [facility] Address: [address] [place] [id number] Performed By: #### 2 4323-8 #### [facility] CLIA [id number] [address] [place] [address] [place] Calcium [Mass/Vol] 9.3 mg/dL Normal 8.5-10.2 [facility] Comment on above: Order Comment: Speci men Type: BLOOD SPECIMEN Ordering Facility[facility] Address: [address] [place] [address] Performed By: #### 2 4323-8 #### [facility] CLIA [id number] [address] [place] [address] [place] Chloride [Moles/Vol] 104 mmol/L Normal 98-107 [facility] Comment on above: Order Comment: Speci men Type: BLOOD SPECIMEN Ordering Facility[facility] Address: [address] [place] [address] Performed By: #### 2 4323-8 #### [facility] CLIA [id number] [address] [place] [address] [place] CO2 [Moles/Vol] 25 mmol/L Normal 22-30 [facility] Comment on above: Order Comment: Speci men Type: BLOOD SPECIMEN Ordering Facility: [facility] Address: [address] [place], [place] [address] Performed By: #### 2 4323-8 #### [facility] CLIA [id number] [address] [place], [place] [address] [place] Creatinine [Mass/Vol] 1.01 mg/dL High 0.58-0.96 [facility] Comment on above: Order Comment: Speci men Type: BLOOD SPECIMEN Ordering Facility[facility] Address: [address] [place], [place] [address] Performed By: #### 2 4323-8 #### [facility] CLIA [id number] [address] [place], [place] [address] [place] Creatinine and Glomerular filtration rate.predicted panel (S/P/Bld) 73 mL/min/1.73m??? Normal >=60 [facility] Comment on above: Order Comment: Dulce Maria jules Type: BLOOD SPECIMEN Ordering Facility[facility] Address: [address] [place] [address] Result Comment: Maricarmen mated Glomerular Filtration Rate [...] GFR. Performed By: #### 2 4323-8 #### [facility] CLIA [id number] [address] [place] [address] [place] Glucose [Mass/Vol] 136 mg/dL High 74-99 [facility] Comment on above: Order Comment: Dulce Maria jules Type: BLOOD SPECIMEN Ordering Facility[facility] Address: [address] [place] [address] Result Comment: The [place] Diabetes Association (ADA) provides guidance for cutoff [...] Standards of Medical Care in Diabetes 2016, [place] [employer]. Diabetes Care. 2016.39(Suppl 1). Performed By: #### 2 4323-8 #### [facility] CLIA [id number] [address] [place] [address] [place] Potassium [Moles/Vol] 3.9 mmol/L Normal 3.7-5.1 [facility] Comment on above: Order Comment: Speci men Type: BLOOD SPECIMEN Order[facility] Facility[facility] Address: [address] [place] [address] Performed By: #### 2 4323-8 #### [facility] CLIA [id number] [address] [place] [address] [place] Protein [Mass/Vol] 7.1 g/dL Normal 6.3-8.0 [facility] Comment on above: Order Comment: Speci men Type: BLOOD SPECIMEN Order[facility] Address: [address] [place] [address] Performed By: #### 2 4323-8 #### [facility] CLIA [id number] [address] [place] [address] [place] Sodium [Moles/Vol] 138 mmol/L Normal 136-144 [facility] Comment on above: Order Comment: Speci men Type: BLOOD SPECIMEN Order[facility] Address: [address] [place] [address] Performed By: #### 2 4323-8 #### [facility] CLIA [id number] [address] [place] [address] [place] Urea nitrogen [Mass/Vol] 12 mg/dL Normal 7-21 [facility] Comment on above: Order Comment: Speci men Type: BLOOD SPECIMEN Order[facility] Address: [address] [place] [address] Performed By: #### 2 4323-8 #### [facility] CLIA [id number] [address] [place] [address] [place] Ambulatory Visit Summaryon 0 [...] LORAINE BURNHAM PA-C Where: [facility] General Surgery Office/Clini c Noteon [...] E&M of Est. Patient Low 20-29 Min 21426 3. BMI 38.0-38.9,adult (Z68.38: Body mass index [BMI] 38.0-38.9, adult) recommend diet and exercise. Ordered: E&M of Est. Patient Low 20-29 Min 95417 Follow-up No qualifying data available Problem List/Past [...] Sister. Heart disease: (more content not included)... [facility] Comment on above: Result Comment: Elec tronically Signed By: MARLON PEREZ, Tesfaye Almonte\.br\Date and Time Signed: 02/13/23 09:58 EST Operative Reporton Operative Report [id number]#[id number] [facility] Lab Reportson 01-31-2023 Lab Reports [id number]#[id number] [facility] Consultation Noteon 01-27-20 Consultation Note [id number]#[id number] [facility] Insurance Correspondenceon 1 03-11-2022 Insurance Correspondence [id number]#[id number] [facility] Ambulatory Visit Summaryon 03-06-2022 Ambulatory Visit Summary [...] LORAINE BURNHAM PA-C Where: [facility] Ambulatory Visit Summary LEANA TRAN [...] LORAINE BURNHAM PA-C Where: [facility] Consent for Procedure/Surger yon 01-04-2023 Consent for Procedure/Surgery [id number]#[id number] [facility] Hemoglobin [id number] By: Julianne Kong on 01-01-2023 [facility] Physician Referralon 023 Physician Referral [id number] Normal [facility] CELIAC ANTIBODIES PROFILEon 06-16-2022 Deamidated Gliadin Abs, IgA 26 units Critically high 0-[address] [facility] Comment on above: Result Comment: Nega tive 0 - 19 Weak Positive 20 - 30 Moderate to Strong Positive >30 Performed By: #### C BC #### [facility] [address] [address] [address] Nilton Mccall Deamidated Gliadin Abs, IgG 5 units Normal 0-[address] [facility] Comment on above: Result Comment: Nega tive 0 - 19 Weak Positive 20 - 30 Moderate to Strong Positive >30 Performed By: #### C BC #### [facility] [address] [address] [address] Nilton Mccall Endomysial Antibody IgA Negative Normal Negative [facility] Comment on above: Performed By: #### C BC #### [facility] [address] [address] [address] Nilton Mccall Immunoglobulin A, Qn, Serum 205 mg/dL Normal 87-[address] [facility] Comment on above: Performed By: #### C BC #### [facility] [address] [address] [address] Nilton Mccall t-Transglutaminase (tTG) IgA <2 Normal 0-[address] [facility] Comment on above: Result Comment: Nega tive 0 - 3 Weak Positive 4 - 10 Positive >10 . Tissue Transglutaminase (tTG) has been identified as the endomysial antigen. Studies have demonstr- ated that endomysial IgA antibodies have over 99% specificity for gluten sensitive enteropathy. Performed By: #### C BC #### [facility] [address] [address] [address] Nilton Mccall t-Transglutaminase (tTG) IgG 3 U/mL Normal 0-[address] [facility] Comment on above: Result Comment: Nega tive 0 - 5 Weak Positive 6 - 9 Positive >9 Performed By: #### C BC #### [facility] [address] [place] [address] Dr. Nilton Mccall CBC AUTO DIFFon 06-15-2022 BASO # 0.0 103/ul Normal 0.0-0.[address] [facility] Comment on above: Performed By: #### C BC #### [facility] [address] [address] [address] Nilton Mccall Basophils/100 WBC (Bld) 0.5 % Normal 0.2-2.[address] [facility] Comment on above: Performed By: #### C BC #### [facility] [address] [address] [address] Nilton Mccall EO # 0.2 103/ul Normal 0.0-0.[address] [facility] Comment on above: Performed By: #### C BC #### [facility] [address] [address] [address] Nilton Mccall Eosinophils/100 WBC (Bld) 2.8 % Normal 0.9-7.[address] [facility] Comment on above: Performed By: #### C BC #### [facility] [address] [address] [address] Nilton Mccall Erythrocyte distribution width (RBC) [Ratio] 11.8 % Normal 11.0-15.[address] [facility] Comment on above: Performed By: #### C BC #### [facility] [address] [address] [address] Nilton Mccall Hematocrit (Bld) [Volume fraction] 41.8 % Normal 36.0-48.[address] [facility] Comment on above: Performed By: #### C BC #### [facility] [address] [address] [address] Nilton Mccall Hemoglobin (Bld) [Mass/Vol] 14.2 g/dL Normal 12.0-16.[address] [facility] Comment on above: Performed By: #### C BC #### [facility] [address] [address] [address] Nilton Mccall IG # 0.03 10e3/ul Normal 0.00-0.[address] [facility] Comment on above: Performed By: #### C BC #### [facility] [address] [place] [address] Dr. Nilton Mccall IG % 0.4 % Normal 0.0-0.[address] [facility] Comment on above: Performed By: #### C BC #### [facility] [address] [place] [address] Dr. Nilton Mccall LYMPH # 2.3 103/ul Normal 1.2-3.[address] [facility] Comment on above: Performed By: #### C BC #### [facility] [address] [place] [address] Dr. Nilton Mccall Lymphocytes/100 WBC (Bld) 28.8 % Normal 20.5-60.[address] [facility] Comment on above: Performed By: #### C BC #### [facility] [address] [place] [address] Dr. Nilton Mccall MANUAL DIFF REQ NO Normal [facility] Comment on above: Performed By: #### C BC #### [facility] [address] [place] [address] Dr. Nilton Mccall MCH (RBC) [Entitic mass] 29.4 pg Normal 26.7-34.[address] [facility] Comment on above: Performed By: #### C BC #### [facility] [address] [place] [address] Dr. Nilton Mccall MCHC (RBC) [Mass/Vol] 34.0 g/dL Normal 29.9-35.[address] [facility] Comment on above: Performed By: #### C BC #### [facility] [address] [place] [address] Dr. Nilton Mccall MCV (RBC) [Entitic vol] 86.5 fL Normal 81.0-99.[address] [facility] Comment on above: Performed By: #### C BC #### [facility] [address] [place] [address] Dr. Nilton Mccall MONO # 0.4 103/ul Normal 0.3-0.[address] [facility] Comment on above: Performed By: #### C BC #### [facility] [address] [place] [address] Dr. Nilton Mccall Monocytes/100 WBC (Bld) 4.5 % Normal 1.7-12.[address] [facility] Comment on above: Performed By: #### C BC #### [facility] [address] [place] [address] Dr. Nilton Mccall NEUT # 5.0 103/ul Normal 1.4-6.[address] [facility] Comment on above: Performed By: #### C BC #### [facility] [address] [place] [address] Dr. Nilton Mcacll Neutrophils/100 WBC (Bld) 63.0 % Normal 43.0-75.[address] [facility] Comment on above: Performed By: #### C BC #### [facility] [address] [place] [address] Dr. Nilton Mccall Platelet mean volume (Bld) [Entitic vol] 9.5 fL Normal 9.5-13.[address] [facility] Comment on above: Performed By: #### C BC #### [facility] [address] [place] [address] Dr. Nilton Mccall PLT 279 103/ul Normal 150-[address] [facility] Comment on above: Performed By: #### C BC #### [facility] [address] [place] [address] Dr. Nilton Mccall RBC 4.83 106/ul Normal 4.20-5.[address] [facility] Comment on above: Performed By: #### C BC #### [facility] [address] [place] [address] Dr. Nilton Mccall WBC 7.9 103/ul Normal 4.0-11.[address] [facility] Comment on above: Performed By: #### C BC #### [facility] [address] [place] [address] Dr. Nilton Mccall GLYCOHEMOGLOBIN A1Con 2022 ADA RECOMMENDATION SEE BELOW Normal [facility] Comment on above: Result Comment: ADA RECOMMENDED LIMIT 4.0 - 6.0 ADA THERAPEUTIC TARGET < 7.0 ACTION SUGGESTED > 7.0 Performed By: #### C MP #### [facility] [address] [place] [address] Dr. Nilton Mccall Glucose [Mass/Vol] 117 mg/dL Normal [facility] Comment on above: Performed By: #### C MP #### [facility] [address] [address] [address] Nilton Mccall HbA1c (Bld) [Mass fraction] 5.7 % Normal 4.5-6.[address] [facility] Comment on above: Performed By: #### C MP #### [facility] [address] [address] [address] Nilton Mccall VIT B12 AND FOLATEon 023 Cobalamin (Vitamin B12) [Mass/Vol] 539.0 pg/mL Normal 193.0-986. [address] [facility] Comment on above: Performed By: #### C BC #### [facility] [address] [address] [address] Nilton Mccall FOLATE 16.40 ng/mL Normal 8.60-58.[address] [facility] Comment on above: Performed By: #### C BC #### [facility] [address] [address] [address] Nilton Mccall VITAMIN D 25 OHon 06-15-2022 VIT D 25-OH 41.2 ng/mL Normal [facility] Comment on above: Performed By: #### C BC #### [facility] [address] [place] [address] Dr. Nilton Mccall VIT D RANGES SEE BELOW Normal [facility] Comment on above: Result Comment: <20 ng/mL Vit D deficient 20 - <30 ng/mL Vit D insufficient 30 - 100 ng/mL Vit D sufficient >100 ng/mL Potential Toxicity Performed By: #### C BC #### [facility] [address] [address] [address] Nilton Mccall FREE T3on 06-05-2022 FREE T3 2.39 pg/mlL Normal 2.18-3.[address] [facility] Comment on above: Performed By: #### T SH, FT3 #### [facility] [address] [address] [address] Nilton Mccall FREE T4on 06-05-2022 Free T4 [Mass/Vol] 0.89 ng/dL Normal 0.76-1.46 [facility] Comment on above: Performed By: #### C MP #### [facility] [address] [place], [place] [address] Dr. Nilton Mccall TSHon 06-05-2022 TSH 1.431 uIU/mL Normal 0.358-3.[address] [facility] Comment on above: Performed By: #### T SH, FT3 #### [facility] [address] [place], [place] [address] Dr. Nilton Mccall PLATELET TRANSMISSION ELECTR ON MICROSCOPIC STUDYon 03-29-2022 PLATELET TEM Performed Normal [facility] Comment on above: Order Comment: Dulce Maria jules Type: BLOOD SPECIMEN Ordering Facility: [facility] Address: [address] [place] [address] Performed By: #### P LTEMS #### [facility] CLIA [id number] [address] [place] [address] PTEM INTERPRETATION SEE NOTE Normal [facility] Comment on above: Order Comment: Dulce Maria jules Type: BLOOD SPECIMEN Ordering Facility: [facility] Address: [address] [place] [address] Result Comment: IMPR ESSION: Platelet transmission electron [...] and its performance characteristics determined by [facility] in a manner consistent with CLIA requirements. This test has not been cleared or approved by the U.S. Food and Drug Administration. Test Performed by: [facility] - [facility] [address] [place] [address] Assistant Controller: Shree Norwood M.D. Ph.D.; CLIA# [id number] Performed By: #### P LTEMS #### [facility] CLIA [id number] [address] [place] [address] T4, Freeon 02-17-2022 Thyroxine, Free 1.34 ng/dL 0.93 - 1.70 ng/dL [facility] TSH with Reflexon 02-17-2022 Interpretation and review of laboratory results Abnormal [facility] TSH Qn 0.08 m[IU]/L Low [facility] US KIDNEYSon 12-26-2021 US KIDNEYS EXAMINATION: US RYLEE Dominick HISTORY: [place] hematuria COMPARISON: 10/20/2020, 11/14/2021 TECHNIQUE: [...] Date: 2021-12-26 07:22 Normal [facility] CBC AUTO DIFFon 12-12-2021 BASO # 0.0 103/ul Normal 0.0-0.[address] [facility] Comment on above: Performed By: #### C MP #### [facility] [address] [address] [address] Nilton Mccall Basophils/100 WBC (Bld) 0.5 % Normal 0.2-2.[address] [facility] Comment on above: Performed By: #### C MP #### [facility] [address] [address] [address] Nilton Mccall EO # 0.2 103/ul Normal 0.0-0.[address] [facility] Comment on above: Performed By: #### C MP #### [facility] [address] [place] [address] Dr. Nilton Mccall Eosinophils/100 WBC (Bld) 3.2 % Normal 0.9-7.[address] [facility] Comment on above: Performed By: #### C MP #### [facility] [address] [place] [address] Dr. Nilton Mccall Erythrocyte distribution width (RBC) [Ratio] 11.9 % Normal 11.0-15.[address] [facility] Comment on above: Performed By: #### C MP #### [facility] [address] [place] [address] Dr. Nilton Mccall Hematocrit (Bld) [Volume fraction] 42.8 % Normal 36.0-48.[address] [facility] Comment on above: Performed By: #### C MP #### [facility] [address] [place] [address] Dr. Nilton Mccall Hemoglobin (Bld) [Mass/Vol] 14.4 g/dL Normal 12.0-16.[address] [facility] Comment on above: Performed By: #### C MP #### [facility] [address] [place] [address] Dr. Nilton Mccall IG # 0.02 10e3/ul Normal 0.00-0.[address] [facility] Comment on above: Performed By: #### C MP #### [facility] [address] [place] [address] Dr. Nilton Mccall IG % 0.3 % Normal 0.0-0.[address] [facility] Comment on above: Performed By: #### C MP #### [facility] [address] [place] [address] Dr. Nilton Mccall LYMPH # 1.4 103/ul Normal 1.2-3.[address] [facility] Comment on above: Performed By: #### C MP #### [facility] [address] [place] [address] Dr. Nilton Mccall Lymphocytes/100 WBC (Bld) 22.3 % Normal 20.5-60.[address] [facility] Comment on above: Performed By: #### C MP #### [facility] [address] [place] [address] Dr. Nilton Mccall MANUAL DIFF REQ NO Normal [facility] Comment on above: Performed By: #### C MP #### [facility] [address] [place] [address] Dr. Nilton Mccall MCH (RBC) [Entitic mass] 28.9 pg Normal 26.7-34.[address] [facility] Comment on above: Performed By: #### C MP #### [facility] [address] [place] [address] Dr. Nilton Mccall MCHC (RBC) [Mass/Vol] 33.6 g/dL Normal 29.9-35.[address] [facility] Comment on above: Performed By: #### C MP #### [facility] [address] [place] [address] Dr. Nilton Mccall MCV (RBC) [Entitic vol] 85.9 fL Normal 81.0-99.[address] [facility] Comment on above: Performed By: #### C MP #### [facility] [address] [place] [address] Dr. Nilton Mccall MONO # 0.3 103/ul Normal 0.3-0.[address] [facility] Comment on above: Performed By: #### C MP #### [facility] [address] [place] [address] Dr. Nilton Mccall Monocytes/100 WBC (Bld) 4.9 % Normal 1.7-12.[address] [facility] Comment on above: Performed By: #### C MP #### [facility] [address] [address] [address] Nilton Mccall NEUT # 4.4 103/ul Normal 1.4-6.[address] [facility] Comment on above: Performed By: #### C MP #### [facility] [address] [address] [address] Nilton Mccall Neutrophils/100 WBC (Bld) 68.8 % Normal 43.0-75.[address] [facility] Comment on above: Performed By: #### C MP #### [facility] [address] [address] [address] Nilton Mccall Platelet mean volume (Bld) [Entitic vol] 9.9 fL Normal 9.5-13.[address] [facility] Comment on above: Performed By: #### C MP #### [facility] [address] [address] [address] Nilton Mccall PLT 237 103/ul Normal 150-[address] [facility] Comment on above: Performed By: #### C MP #### [facility] [address] [address] [address] Nilton Mccall RBC 4.98 106/ul Normal 4.20-5.[address] [facility] Comment on above: Performed By: #### C MP #### [facility] [address] [address] [address] Nilton Mccall WBC 6.3 103/ul Normal 4.0-11.[address] [facility] Comment on above: Performed By: #### C MP #### [facility] [address] [address] [address] Nilton Mccall GLYCOHEMOGLOBIN A1Con 2021 ADA RECOMMENDATION SEE BELOW Normal [facility] Comment on above: Result Comment: ADA RECOMMENDED LIMIT 4.0 - 6.0 ADA THERAPEUTIC TARGET < 7.0 ACTION SUGGESTED > 7.0 Performed By: #### P T, PTT #### [facility] [address] [place] [address] Dr. Nilton Mccall Glucose [Mass/Vol] 120 mg/dL Normal [facility] Comment on above: Performed By: #### P T, PTT #### [facility] [address] [address] [address] Nilton Mccall HbA1c (Bld) [Mass fraction] 5.8 % Normal 4.5-6.[address] [facility] Comment on above: Performed By: #### P T, PTT #### [facility] [address] [address] [address] Nilton Mccall LIPID PROFILEon 12-12-2021 CHOL-HDL RATIO NORM SEE BELOW Normal [facility] Comment on above: Result Comment: 3.3 - 4.4 LOW RISK 4.4 - 7.1 AVERAGE RISK 7.1 - 11.0 MODERATE RISK >11.0 HIGH RISK Performed By: #### P T, PTT #### [facility] [address] [address] [address] Nilton Mccall Cholesterol [Mass/Vol] 225 mg/dL Critically high <=[address] [facility] Comment on above: Performed By: #### P T, PTT #### [facility] [address] [address] [address] Nilton Mccall Cholesterol in HDL [Mass/Vol] 32 mg/dL Critically low 40-[address] [facility] Comment on above: Performed By: #### P T, PTT #### [facility] [address] [address] [address] Nilton Mccall Cholesterol in LDL [Mass/Vol] 132.8 mg/dL Normal [facility] Comment on above: Performed By: #### P T, PTT #### [facility] [address] [address] [address] Nilton Mccall Cholesterol.total/Ch olesterol in HDL [Mass ratio] 7.0 {ratio} Normal [facility] Comment on above: Performed By: #### P T, PTT #### [facility] [address] [address] [address] Nilton Mccall HDL NORMAL > or = 60 mg/dl - LO W CARDIOVASCULAR RISK <40 mg/dl - HIGH CARDIOVASCULAR RISK Normal [facility] Comment on above: Performed By: #### P T, PTT #### [facility] [address] [address] [address] Nilton Mccall LDL CALC NORMAL SEE BELOW Normal [facility] Comment on above: Result Comment: <100 mg/dl OPTIMAL 100 - 129 mg/dl NEAR OR ABOVE OPTIMAL 130 - 159 mg/dl BORDERLINE HIGH 160 - 189 mg/dl HIGH >190 mg/dl VERY HIGH Performed By: #### P T, PTT #### [facility] [address] [address] [address] Nilton Mccall Triglyceride [Mass/Vol] 301 mg/dL Critically high <=[address] [facility] Comment on above: Performed By: #### P T, PTT #### [facility] [address] [address] [address] Nilton Mccall VLDL CALC 60.2 mg/dL Normal [facility] Comment on above: Performed By: #### P T, PTT #### [facility] [address] [place] [address] Dr. Nilton Mccall LIVER PROFILEon 12-12-2021 Albumin [Mass/Vol] 4.0 g/dL Normal 3.4-5.0 [facility] Comment on above: Performed By: #### P T, PTT #### [facility] [address] [address] [address] Nilton Mccall Albumin/Globulin [Mass ratio] 1.1 {ratio} Normal [facility] Comment on above: Performed By: #### P T, PTT #### [facility] [address] [place] [address] Dr. Nilton Mccall ALP [Catalytic activity/Vol] 70 U/L Normal 46-[address] [facility] Comment on above: Performed By: #### P T, PTT #### [facility] [address] [address] [address] Nilton Mccall ALT [Catalytic activity/Vol] 30 U/L Normal 14-[address] [facility] Comment on above: Performed By: #### P T, PTT #### [facility] [address] [address] [address] Nilton Mccall AST [Catalytic activity/Vol] 15 U/L Normal 15-[address] [facility] Comment on above: Performed By: #### P T, PTT #### [facility] [address] [place] [address] Dr. Nilton Mccall BILI, CONJUGATED 0.1 mg/dL Normal 0.0-0.2 [facility] Comment on above: Performed By: #### P T, PTT #### [facility] [address] [place] [address] Dr. Nilton Mccall Bilirubin [Mass/Vol] 0.3 mg/dL Normal 0.2-1.[address] [facility] Comment on above: Performed By: #### P T, PTT #### [facility] [address] [place] [address] Dr. Nilton Mccall Globulin (S) [Mass/Vol] 3.5 g/dL Normal [facility] Comment on above: Performed By: #### P T, PTT #### [facility] [address] [place] [address] Dr. Nilton Mccall Protein [Mass/Vol] 7.5 g/dL Normal 6.4-8.2 [facility] Comment on above: Performed By: #### P T, PTT #### [facility] [address] [place] [address] Dr. Nilton Mccall PROF CHEM 8 (BAS METB)on Anion gap [Moles/Vol] 7.2 mmol/L Normal [facility] Comment on above: Performed By: #### P T, PTT #### [facility] [address] [place] [address] Dr. Nilton Mccall Calcium [Mass/Vol] 9.1 mg/dL Normal 8.5-10.1 [facility] Comment on above: Performed By: #### P T, PTT #### [facility] [address] [place] [address] Dr. Nilton Mccall Chloride [Moles/Vol] 104 mmol/L Normal 98-[address] [facility] Comment on above: Performed By: #### P T, PTT #### [facility] [address] [place] [address] Dr. Nilton Mccall CO2 [Moles/Vol] 29.7 mmol/L Normal 21.0-32.0 [facility] Comment on above: Performed By: #### P T, PTT #### [facility] [address] [address] [address] Nilton Mccall Creatinine [Mass/Vol] 0.97 mg/dL Normal 0.55-1.[address] [facility] Comment on above: Performed By: #### P T, PTT #### [facility] [address] [address] [address] Nilton Mccall EGFR-AF SPANISH >60 Normal >=60 [facility] Comment on above: Performed By: #### P T, PTT #### [facility] [address] [address] [address] Nilton Mccall EGFR-NON AF SPANISH >60 Normal >=[address] [facility] Comment on above: Performed By: #### P T, PTT #### [facility] [address] [address] [address] Nilton Mccall Glucose [Mass/Vol] 92 mg/dL Normal 74-106 [facility] Comment on above: Performed By: #### P T, PTT #### [facility] [address] [address] [address] Nilton Mccall Potassium [Moles/Vol] 3.9 mmol/L Normal 3.5-5.[address] [facility] Comment on above: Performed By: #### P T, PTT #### [facility] [address] [address] [address] Nilton Mccall Sodium [Moles/Vol] 137 mmol/L Normal 136-145 [facility] Comment on above: Performed By: #### P T, PTT #### [facility] [address] [address] [address] Nilton Mccall Urea nitrogen [Mass/Vol] 14.0 mg/dL Normal 7.0-18.0 [facility] [facility] Comment on above: Performed By: #### P T, PTT #### [facility] [address] [address] [address] Nilton Mccall Urea nitrogen/Creatinine [Mass ratio] 14.4 mg/mg Normal [facility] Comment on above: Performed By: #### P T, PTT #### [facility] [address] [place] [address] Dr. Nilton Mccall TSHon 12-12-2021 TSH 0.340 uIU/mL Critically low 0.358-3.[address] [facility] Comment on above: Performed By: #### P T, PTT #### [facility] [address] [place] [address] Dr. Nilton Mccall VITAMIN D 25 OHon 12-12-2021 VIT D 25-OH 44.3 ng/mL Normal [facility] Comment on above: Performed By: #### P T, PTT #### [facility] [address] [place] [address] Dr. Nilton Mccall VIT D RANGES SEE BELOW Normal [facility] Comment on above: Result Comment: <20 ng/mL Vit D deficient 20 - <30 ng/mL Vit D insufficient 30 - 100 ng/mL Vit D sufficient >100 ng/mL Potential Toxicity Performed By: #### P T, PTT #### [facility] [address] [place] [address] Dr. Nilton Mccall CULTURE URINEon 11-18-2021 CULTURE URINE Culture Observations : HEAVY GROWTH OF MIXED GENITAL CHANCE. NO POTENTIAL PATHOGENS SEEN. Normal [facility] Comment on above: Performed By: #### P T, PTT #### [facility] [address] [place] [address] Dr. Nilton Mccall CBC AUTO DIFFon 11-14-2021 BASO # 0.0 103/ul Normal 0.0-0.[address] [facility] Comment on above: Performed By: #### P T, PTT #### [facility] [address] [place] [address] Dr. Nilton Mccall Basophils/100 WBC (Bld) 0.6 % Normal 0.2-2.[address] [facility] Comment on above: Performed By: #### P T, PTT #### [facility] [address] [place] [address] Dr. Nilton Mccall EO # 0.2 103/ul Normal 0.0-0.[address] [facility] Comment on above: Performed By: #### P T, PTT #### [facility] [address] [place] [address] Dr. Nilton Mccall Eosinophils/100 WBC (Bld) 2.6 % Normal 0.9-7.[address] [facility] Comment on above: Performed By: #### P T, PTT #### [facility] [address] [place] [address] Dr. Nilton Mccall Erythrocyte distribution width (RBC) [Ratio] 11.9 % Normal 11.0-15.[address] [facility] Comment on above: Performed By: #### P T, PTT #### [facility] [address] [place] [address] Dr. Nilton Mccall Hematocrit (Bld) [Volume fraction] 39.7 % Normal 36.0-48.[address] [facility] Comment on above: Performed By: #### P T, PTT #### [facility] [address] [place] [address] Dr. Nilton Mccall Hemoglobin (Bld) [Mass/Vol] 13.8 g/dL Normal 12.0-16.[address] [facility] Comment on above: Performed By: #### P T, PTT #### [facility] [address] [place] [address] Dr. Nilton Mccall IG # 0.03 10e3/ul Normal 0.00-0.[address] [facility] Comment on above: Performed By: #### P T, PTT #### [facility] [address] [place] [address] Dr. Nilton Mccall IG % 0.5 % Normal 0.0-0.[address] [facility] Comment on above: Performed By: #### P T, PTT #### [facility] [address] [place] [address] Dr. Nilton Mccall LYMPH # 1.7 103/ul Normal 1.2-3.[address] [facility] Comment on above: Performed By: #### P T, PTT #### [facility] [address] [place] [address] Dr. Nilton Mccall Lymphocytes/100 WBC (Bld) 26.0 % Normal 20.5-60.[address] [facility] Comment on above: Performed By: #### P T, PTT #### [facility] [address] [place] [address] Dr. Nilton Mccall MANUAL DIFF REQ NO Normal [facility] Comment on above: Performed By: #### P T, PTT #### [facility] [address] [place] [address] Dr. Nilton Mccall MCH (RBC) [Entitic mass] 29.6 pg Normal 26.7-34.[address] [facility] Comment on above: Performed By: #### P T, PTT #### [facility] [address] [place] [address] Dr. Nilton Mccall MCHC (RBC) [Mass/Vol] 34.8 g/dL Normal 29.9-35.[address] [facility] Comment on above: Performed By: #### P T, PTT #### [facility] [address] [place] [address] Dr. Nilton Mccall MCV (RBC) [Entitic vol] 85.0 fL Normal 81.0-99.[address] [facility] Comment on above: Performed By: #### P T, PTT #### [facility] [address] [place] [address] Dr. Nilton Mccall MONO # 0.3 103/ul Normal 0.3-0.[address] [facility] Comment on above: Performed By: #### P T, PTT #### [facility] [address] [place] [address] Dr. Nilton Mccall Monocytes/100 WBC (Bld) 5.1 % Normal 1.7-12.[address] [facility] Comment on above: Performed By: #### P T, PTT #### [facility] [address] [place] [address] Dr. Nilton Mccall NEUT # 4.2 103/ul Normal 1.4-6.[address] [facility] Comment on above: Performed By: #### P T, PTT #### [facility] [address] [place] [address] Dr. Nilton Mccall Neutrophils/100 WBC (Bld) 65.2 % Normal 43.0-75.[address] [facility] Comment on above: Performed By: #### P T, PTT #### [facility] [address] [address] [address] Nilton Mccall Platelet mean volume (Bld) [Entitic vol] 9.4 fL Critically low 9.5-13.[address] [facility] Comment on above: Performed By: #### P T, PTT #### [facility] [address] [place] [address] Dr. Nilton Mccall PLT 232 103/ul Normal 150-[address] [facility] Comment on above: Performed By: #### P T, PTT #### [facility] [address] [place] [address] Dr. Nilton Mccall RBC 4.67 106/ul Normal 4.20-5.[address] [facility] Comment on above: Performed By: #### P T, PTT #### [facility] [address] [place] [address] Dr. Nilton Mccall WBC 6.4 103/ul Normal 4.0-11.[address] [facility] Comment on above: Performed By: #### P T, PTT #### [facility] [address] [place] [address] ABD/PELVIS WO CONon [...] Date: 2021-11-14 14:24 Normal [facility] ER URINE PROFILEon 2 Bilirubin Ql (U) Negative Normal NEGATIVE [facility] Comment on above: Performed By: #### C BC #### [facility] [address] [place] [address] Dr. Nilton Mccall Clarity (U) CLEAR Normal CLEAR [facility] Comment on above: Performed By: #### C BC #### [facility] [address] [place] [address] Dr. Nilton Mccall Color (U) LT. YELLOW Normal YELLOW [facility] Comment on above: Performed By: #### C BC #### [facility] [address] [place] [address] Dr. Nilton Mccall ERUAHD A micrscopic examina tion will be performed if indicated. Normal [facility] Comment on above: Performed By: #### C BC #### [facility] [address] [place] [address] Dr. Nilton Mccall Glucose Ql (U) Negative Normal NEGATIVE [facility] Comment on above: Performed By: #### C BC #### [facility] [address] [place] [address] Dr. Nilton Mccall Hemoglobin Ql (U) Negative Normal NEGATIVE [facility] Comment on above: Performed By: #### C BC #### [facility] [address] [place] [address] Dr. Nitlon Mccall Ketones Ql (U) Negative Normal NEGATIVE [facility] Comment on above: Performed By: #### C BC #### [facility] [address] [place] [address] Dr. Nilton Mccall LEUKOCYTES Negative Normal NEGATIVE [facility] Comment on above: Performed By: #### C BC #### [facility] [address] [place] [address] Dr. Nilton Mccall Nitrite Ql (U) Negative Normal NEGATIVE [facility] Comment on above: Performed By: #### C BC #### [facility] [address] [place] [address] Dr. Nilton Mccall pH (U) 6.0 [pH] Normal 5-[address] [facility] Comment on above: Performed By: #### C BC #### [facility] [address] [place] [address] Dr. Nilton Mccall SPEC GRAVITY 1.025 Normal 1.005-<=1. [address] [facility] Comment on above: Performed By: #### C BC #### [facility] [address] [place] [address] Dr. Nilton Mccall UA PROTEIN Negative Normal NEGATIVE/ TRACE [facility] Comment on above: Performed By: #### C BC #### [facility] [address] [place] [address] Dr. Nilton Mccall UR MICRO IND NOT INDICATED Normal [facility] Comment on above: Performed By: #### C BC #### [facility] [address] [place] [address] Dr. Nilton Mccall Urobilinogen Qn (U) 0.2 {Zarina'U}/dL Normal 0.2 - 1. [address] [facility] Comment on above: Performed By: #### C BC #### [facility] [address] [place] [address] Dr. Nilton Mccall MONOon 11-14-2021 Monocytes (Bld) [#/Vol] Negative Normal NEGATIVE [facility] Comment on above: Performed By: #### P T, PTT #### [facility] [address] [place] [address] Dr. Nilton Mccall PROF 14(COMP METB)on 022 Albumin [Mass/Vol] 3.8 g/dL Normal 3.4-5.0 [facility] Comment on above: Performed By: #### C MP #### [facility] [address] [place] [address] Dr. Nilton Mccall Albumin/Globulin [Mass ratio] 1.2 {ratio} Normal [facility] Comment on above: Performed By: #### C MP #### [facility] [address] [address] [address] iNlton Mccall ALP [Catalytic activity/Vol] 65 U/L Normal 46-[address] [facility] Comment on above: Performed By: #### C MP #### [facility] [address] [address] [address] Nilton Mccall ALT [Catalytic activity/Vol] 29 U/L Normal 14-[address] [facility] Comment on above: Performed By: #### C MP #### [facility] [address] [address] [address] Nilton Mccall Anion gap [Moles/Vol] 8.6 mmol/L Normal [facility] Comment on above: Performed By: #### C MP #### [facility] [address] [place] [address] Dr. Nilton Mccall AST [Catalytic activity/Vol] 13 U/L Critically low 15-[address] [facility] Comment on above: Performed By: #### C MP #### [facility] [address] [place] [address] Dr. Nilton Mccall Bilirubin [Mass/Vol] 0.4 mg/dL Normal 0.2-1.[address] [facility] Comment on above: Performed By: #### C MP #### [facility] [address] [place] [address] Dr. Nilton Mccall Calcium [Mass/Vol] 8.9 mg/dL Normal 8.5-10.1 [facility] Comment on above: Performed By: #### C MP #### [facility] [address] [address] [address] Nilton Mccall Chloride [Moles/Vol] 106 mmol/L Normal 98-[address] [facility] Comment on above: Performed By: #### C MP #### [facility] [address] [place] [address] Dr. Nilton Mccall CO2 [Moles/Vol] 26.2 mmol/L Normal 21.0-32.0 [facility] Comment on above: Performed By: #### C MP #### [facility] [address] [address] [address] Nilton Mccall Creatinine [Mass/Vol] 1.12 mg/dL Critically high 0.55-1.[address] [facility] Comment on above: Performed By: #### C MP #### [facility] [address] [address] [address] Nilton Mccall EGFR-AF SPANISH >60 Normal >=60 [facility] Comment on above: Performed By: #### C MP #### [facility] [address] [address] [address] Nilton Mccall EGFR-NON AF SPANISH 55 mL/min/1.73m2 Critically low >=[address] [facility] Comment on above: Performed By: #### C MP #### [facility] [address] [place] [address] Dr. Nilton Mccall Globulin (S) [Mass/Vol] 3.3 g/dL Normal [facility] Comment on above: Performed By: #### C MP #### [facility] [address] [place] [address] Dr. Nilton Mccall Glucose [Mass/Vol] 88 mg/dL Normal 74-106 [facility] Comment on above: Performed By: #### C MP #### [facility] [address] [place] [address] Dr. Nilton Mccall Potassium [Moles/Vol] 3.8 mmol/L Normal 3.5-5.[address] [facility] Comment on above: Performed By: #### C MP #### [facility] [address] [address] [address] Nilton Mccall Protein [Mass/Vol] 7.1 g/dL Normal 6.4-8.2 [facility] Comment on above: Performed By: #### C MP #### [facility] [address] [address] [address] Nilton Mccall Sodium [Moles/Vol] 137 mmol/L Normal 136-145 [facility] Comment on above: Performed By: #### C MP #### [facility] [address] [address] [address] Nilton Mccall Urea nitrogen [Mass/Vol] 14.0 mg/dL Normal 7.0-18.[address] [facility] Comment on above: Performed By: #### C MP #### [facility] [address] [address] [address] Nilton Mccall Urea nitrogen/Creatinine [Mass ratio] 12.5 mg/mg Normal [facility] Comment on above: Performed By: #### C MP #### [facility] [address] [address] [address] Nilton Mccall MG MAMM DIAGNOSTIC 3D LARS CA Don 10-19-2021 MG MAMM DIAGNOSTIC 3D LARS CAD Patient: LEANA TRAN Exam Date: 10/19/2021 : 1985 Gender:F Ordering : DR CAS DOWELL . Admission #: [id number] Family : Order #: [id number] CLICK HERE TO VIEW EXAM RADIOLOGY REPORT [...] at age 48. LOCATION: [facility] BREAST COMPOSITION: Scattered areas fibroglandular density. [...] 10/19/2021 at 11:10 Normal [facility] US BREAST LARS LIMITEDon 09- US BREAST LARS LIMITED Patient: LEANA TRAN Exam Date: 10/19/2021 : 1985 Gender:F Ordering : DR CAS DOWELL . Admission #: [id number] Family : Order #: [id number] CLICK HERE TO VIEW EXAM RADIOLOGY REPORT [...] at age 48. LOCATION: [facility] BREAST COMPOSITION: Scattered areas fibroglandular density. [...] Kim M.D. on 10/19/2021 at 11:[address] [facility] XR CHEST 2V FRONTAL/LATon [facility] LUNG DIFFUSION CAPACITY (FARHAD O)on 09-27-2021 DLCO (ml/min/mmHg) 22.00 ml/min/mmHg [facility] DLCO/VA (ml/min/mmHg/L) 4.60 ml/min/mmHg/L [facility] DLCOcor (ml/min/mmHg) 21.26 ml/min/mmHg [facility] ERV BOX (L) 0.28 L [facility] ZAM57-64% POST (L/S) 2.46 L/S [facility] OSO55-61% PRE (L/S) 2.13 L/S [facility] FEV1 PRE (L) 2.83 L [facility] FEV1/FVC POST (%) 74 % [facility] FEV1/FVC PRE (%) 73 % [facility] FEV1_POST (L) 2.92 L [facility] FRC Box (L) 1.66 L [facility] FVC POST (L) 3.92 L [facility] FVC PRE (L) 3.89 L [facility] IC BOX (L) 2.36 L [facility] PEF POST (L/S) 5.48 L/S [facility] PEF PRE (L/S) 5.56 L/S [facility] RV Box (L) 1.39 L [facility] RV/TLC Box (%) 32 % [facility] TLC Box (L) 4.36 L [facility] VA (L) 4.78 L [facility] VC (L) BOX 3.51 L [facility] CTA CHEST WO W CONon 022 CTA [...] AYAKA STEARNS Date: 2021-09-22 22:30 Normal [facility] PROF CHEM 8 (BAS METB)on Anion gap [Moles/Vol] 5.4 mmol/L Normal [facility] Comment on above: Performed By: #### B MP #### [facility] [address] [address] [address] Nilton Mccall Calcium [Mass/Vol] 9.2 mg/dL Normal 8.5-10.1 [facility] Comment on above: Performed By: #### B MP #### [facility] [address] [address] [address] Nilton Mccall Chloride [Moles/Vol] 102 mmol/L Normal 98-[address] [facility] Comment on above: Performed By: #### B MP #### [facility] [address] [address] [address] Nilton Mccall CO2 [Moles/Vol] 26.1 mmol/L Normal 21.0-32.0 [facility] Comment on above: Performed By: #### B MP #### [facility] [address] [address] [address] Nilton Mccall Creatinine [Mass/Vol] 0.99 mg/dL Normal 0.55-1.[address] [facility] Comment on above: Performed By: #### B MP #### [facility] [address] [place] [address] Dr. Nilton Mccall EGFR-AF SPANISH >60 Normal >=60 [facility] Comment on above: Performed By: #### B MP #### [facility] [address] [address] [address] Nilton Mccall EGFR-NON AF SPANISH >60 Normal >=[address] [facility] Comment on above: Performed By: #### B MP #### [facility] [address] [address] [address] Nilton Mccall Glucose [Mass/Vol] 113 mg/dL Critically high 74-106 T [facility] Comment on above: Performed By: #### B MP #### [facility] [address] [address] [address] Nilton Mccall Potassium [Moles/Vol] 3.5 mmol/L Normal 3.5-5.[address] [facility] Comment on above: Performed By: #### B MP #### [facility] [address] [address] [address] Nilton Mccall Sodium [Moles/Vol] 130 mmol/L Critically low 136-[address] [facility] Comment on above: Performed By: #### B MP #### [facility] [address] [address] [address] Nilton Mccall Urea nitrogen [Mass/Vol] 13.0 mg/dL Normal 7.0-18.[address] [facility] Comment on above: Performed By: #### B MP #### [facility] [address] [place] [address] Dr. Nilton Mccall Urea nitrogen/Creatinine [Mass ratio] 13.1 mg/mg Normal [facility] Comment on above: Performed By: #### B MP #### [facility] [address] [address] [address] Nilton Mccall GLYCOHEMOGLOBIN A1Con 2021 ADA RECOMMENDATION SEE BELOW Normal [facility] Comment on above: Result Comment: ADA RECOMMENDED LIMIT 4.0 - 6.0 ADA THERAPEUTIC TARGET < 7.0 ACTION SUGGESTED > 7.0 Performed By: #### C BC #### [facility] [address] [place] [address] Dr. Nilton Mccall Glucose [Mass/Vol] 140 mg/dL Normal [facility] Comment on above: Performed By: #### C BC #### [facility] [address] [place] [address] Dr. Nilton Mccall HbA1c (Bld) [Mass fraction] 6.5 % Critically high 4.5-6.[address] [facility] Comment on above: Performed By: #### C BC #### [facility] [address] [place] [address] Dr. Nilton Mccall US Pelvis limitedon 08-20-19 IMPRESSION: No inguinal or femoral hernia identified. Rn Labor And Delivery: ROBER Transcribe Date/Time: Aug 19 2021 1:20P Dictated by : LUANNE BRYANT MD This examination was interpreted and the report reviewed and electronically signed by: LUANNE BRYANT MD on Aug 19 2021 2:51PM EST [id number] E_DIVISION OF RADIOLOGY * * *Final Report* * * DATE OF EXAM: Aug 19 2021 1:14PM [place] [id number] [facility] PELVIS LTD / PROCEDURE REASON: multiple diagnoses [...] appearance. [id number] E_DIVISION OF RADIOLOGY Provider, Elias Queen [facility] - 08/19/2021 * * *Final Report* * * DATE OF EXAM: Aug 19 2021 1:14PM [place] [id number] [facility] PELVIS LTD / PROCEDURE REASON: multiple diagnoses [...] IMPRESSION: No inguinal or femoral hernia identified. Rn Labor And Delivery: PSCB Transcribe Date/Time: Aug 19 2021 1:20P Dictated by : LUANNE BRYANT MD This examination was interpreted and the report reviewed and electronically signed by: LUANNE BRYANT MD on Aug 19 2021 2:51PM EST [facility] Radiology Study observation (narrative) [facility] US Pelvis limitedOrdered By: Cc Provider on 08-19-2021 [facility] ECHOon 08-17-2021 Echocardiography Echocardiography Rep ort: Transthoracic Echo [facility] Date of service: 08/17/2021 2:18:31 [...] * * Final * * * CC [employer] : [id number] Normal [facility] LVEF ECHOon 08-17-2021 LV Ejection Fraction 58 % [facility] PAP ACOG PANEL 2: 30 to 65on 08-05-2021 . . Normal [facility] Comment on above: Result Comment: Perf ormed at: WB Performed By: #### P T, PTT #### [facility] [address] [address] [address] Nilton Mccall Age Gdln ACOG Testing 30-[address] [facility] Comment on above: Performed By: #### P T, PTT #### [facility] [address] [place] [address] Dr. Nilton Mccall DIAGNOSIS: Comment Normal [facility] Comment on above: Result Comment: NEGA TIVE FOR INTRAEPITHELIAL LESION OR MALIGNANCY. Performed at: WB Performed By: #### P T, PTT #### [facility] [address] [place] [address] Dr. Nilton Mccall HPV Aptima Negative Normal Negative [facility] Comment on above: Result Comment: This nucleic acid amplification test detects fourteen high-risk HPV types (16,18,31,33,35,39,45,51,52,56,58,59,66,68) without differentiation. Performed at: =G Performed By: #### P T, PTT #### [facility] [address] [place] [address] Dr. Nilton Mccall Methodology: Comment Normal [facility] Comment on above: Result Comment: This liquid based ThinPrep(R) pap test was screened with the use of an image guided system. Performed at: WB Performed By: #### P T, PTT #### [facility] [address] [place] [address] Dr. Nilton Mccall Note: Comment Normal [facility] Comment on above: Result Comment: The Pap [...] #### P T, PTT #### [facility] [address] [place] [address] Dr. Nilton Mccall Performed by: Comment Normal [facility] Comment on above: Result Comment: [employer] (ASCP) Performed at: WB Performed By: #### P T, PTT #### [facility] [address] [place] [address] Dr. Nilton Mccall Specimen adequacy: Comment Normal [facility] Comment on above: Result Comment: Sati sfactory for evaluation. No endocervical component is identified. Performed at: WB Performed By: #### P T, PTT #### [facility] [address] [address] [address] Nilton Mccall C3 SerPl-mCncon 07-25-2021 Complement C3 [Mass/Vol] 165 mg/dL Normal 86-166 [facility] Comment on above: Order Comment: Speci men Type: BLOOD SPECIMEN Ordering Facility: [facility] Address: [address] [place] [address] Performed By: #### 4 [id number], 4498-2 #### [facility] CLIA [id number] [address] [place] [address] [place] C4 SerPl-mCncon 07-25-2021 Complement C4 [Mass/Vol] 32 mg/dL Normal 13-46 [facility] Comment on above: Order Comment: Speci men Type: BLOOD SPECIMEN Ordering Facility: [facility] Address: [address] [place] [address] Performed By: #### 4 485-9, 4498-2 #### [facility] CLIA [id number] [address] [place] [address] [place] TRYPTASE BLOODon 07-25-2021 Tryptase [Mass/Vol] 3.4 ug/L Normal <8.4 [facility] Comment on above: Order Comment: Speci men Type: BLOOD SPECIMEN Ordering Facility: [facility] Address: [address] [place] [address] Performed By: #### T RYPT #### [facility] CLIA [id number] [address] [place] [address] [place] ACTH BLDon 07-18-2021 Corticotropin (P) [Mass/Vol] 15.5 pg/mL 7.2 - 63.3 pg/mL [facility] CORTISOL BLDon 07-18-2021 Cortisol [Mass/Vol] 9.9 ug/dL 4.8 - 19 .5 ug/dL [facility] Alpha tocopherol [Mass/Vol]o n 07-07-2021 Beta+gamma tocopherol [Mass/Vol] 3.0 mg/L 0.3 - 3.2 mg/L [facility] VITAMIN E/TOCOPHEROLon 07-07 Alpha tocopherol [Mass/Vol] 13.1 mg/L 6.0 - 23.0 mg/L [facility] ACTH [facility] 07-02-2021 Corticotropin (P) [Mass/Vol] 15.1 pg/mL 7.2 - 63.3 pg/mL [facility] CERULOPLASMIN [facility] 07-02-19 Ceruloplasmin [Mass/Vol] 23 mg/dL 16 - 45 mg/dL [facility] CK CREATINE KINASEon 022 CK [Catalytic activity/Vol] 51 U/L 42 - 196 U/L [facility] CORTISOL [facility] 07-01-2021 Cortisol [Mass/Vol] 7.4 ug/dL 4.8 - 19 .5 ug/dL [facility] DHEA-S [facility] 07-01-2021 DHEA-S [Mass/Vol] 35.9 ug/dL Low 60.9 - 337.0 ug/dL [facility] FERRITIN [facility] 07-01-2021 Ferritin [Mass/Vol] 98.2 ng/mL 14.7 - 205.1 ng/mL [facility] BNP 06-24-2021 Natriuretic peptide B (Bld) [Mass/Vol] 15.0 pg/mL Normal <=450.[address] [facility] Comment on above: Performed By: #### C BC #### [facility] [address] [place] [address] Dr. Nilton Mccall CARDIAC CHAYO 3-6on 2 CK [Catalytic activity/Vol] 60 U/L Normal 26-[address] [facility] Comment on above: Performed By: #### C MREP #### [facility] [address] [place] [address] Dr. Nilton Mccall CK.MB [Mass/Vol] 0.33 ng/mL Normal <=3.60 [facility] Comment on above: Performed By: #### C MREP #### [facility] [address] [place] [address] Dr. Nilton Mccall HSTROP 4.7 pg/mL Normal 4.0-51.[address] [facility] Comment on above: Result Comment: CUT- OFF POINTS HAVE BEEN ESTABLISHED BASED ON THE FOURTH UNIVERSAL DEFINITIONS OF MYOCARDIAL INFARCTION. THE UPPER REFERENCE LIMIT (URL) OF TROPONIN, DEFINED THE 99TH PERCENTILE OF cTnI DISTRIBUTION IN A REFERENCE POPULATION, HAS BEEN CONFIRMED THE DECISION THRESHOLD FOR MD DIAGNOSIS. Performed By: #### C MREP #### [facility] [address] [place] [address] Dr. Nilton Mccall CARDIAC CHAYO ADMITon 022 CK [Catalytic activity/Vol] 71 U/L Normal 26-[address] [facility] Comment on above: Performed By: #### C BC #### [facility] [address] [place] [address] Dr. Nilton Mccall CK.MB [Mass/Vol] 0.50 ng/mL Normal <=3.60 [facility] Comment on above: Performed By: #### C BC #### [facility] [address] [place] [address] Dr. Nilton Mccall HSTROP 3.8 pg/mL Critically low 4.0-51.3 [facility] Comment on above: Result Comment: CUT- OFF POINTS HAVE BEEN ESTABLISHED BASED ON THE FOURTH UNIVERSAL DEFINITIONS OF MYOCARDIAL INFARCTION. THE UPPER REFERENCE LIMIT (URL) OF TROPONIN, DEFINED THE 99TH PERCENTILE OF cTnI DISTRIBUTION IN A REFERENCE POPULATION, HAS BEEN CONFIRMED THE DECISION THRESHOLD FOR MD DIAGNOSIS. Performed By: #### C BC #### [facility] [address] [place] [address] Dr. Nilton Mccall PILI 25 ng/mL Normal 9-[address] [facility] Comment on above: Performed By: #### C BC #### [facility] [address] [place] [address] Dr. Nilton Mccall CBC AUTO DIFFon 06-24-2021 BASO # 0.1 103/ul Normal 0.0-0.[address] [facility] Comment on above: Performed By: #### C MP #### [facility] [address] [place] [address] Dr. Nilton Mccall Basophils/100 WBC (Bld) 0.6 % Normal 0.2-2.[address] [facility] Comment on above: Performed By: #### C MP #### [facility] [address] [place] [address] Dr. Nilton Mccall EO # 0.2 103/ul Normal 0.0-0.[address] [facility] Comment on above: Performed By: #### C MP #### [facility] [address] [place] [address] Dr. Nilton Mccall Eosinophils/100 WBC (Bld) 2.2 % Normal 0.9-7.[address] [facility] Comment on above: Performed By: #### C MP #### [facility] [address] [place] [address] Dr. Nilton Mccall Erythrocyte distribution width (RBC) [Ratio] 11.8 % Normal 11.0-15.[address] [facility] Comment on above: Performed By: #### C MP #### [facility] [address] [place] [address] Dr. Nilton Mccall Hematocrit (Bld) [Volume fraction] 43.4 % Normal 36.0-48.[address] [facility] Comment on above: Performed By: #### C MP #### [facility] [address] [place] [address] Dr. Nilton Mccall Hemoglobin (Bld) [Mass/Vol] 14.8 g/dL Normal 12.0-16.[address] [facility] Comment on above: Performed By: #### C MP #### [facility] [address] [place] [address] Dr. Nilton Mccall IG # 0.04 10e3/ul Critically high 0.00-0.03 [facility] Comment on above: Performed By: #### C MP #### [facility] [address] [place] [address] Dr. Nilton Mccall IG % 0.4 % Normal 0.0-0.[address] [facility] Comment on above: Performed By: #### C MP #### [facility] [address] [place], [place] [id number] Dr. Nilton Mccall LYMPH # 2.0 103/ul Normal 1.2-3.[address] [facility] Comment on above: Performed By: #### C MP #### [facility] [address] [place] [address] Dr. Nilton Mccall Lymphocytes/100 WBC (Bld) 21.5 % Normal 20.5-60.[address] [facility] Comment on above: Performed By: #### C MP #### [facility] [address] [place] [address] Dr. Nilton Mccall MANUAL DIFF REQ NO Normal [facility] Comment on above: Performed By: #### C MP #### [facility] [address] [place] [address] Dr. Nilton Mccall MCH (RBC) [Entitic mass] 29.4 pg Normal 26.7-34.[address] [facility] Comment on above: Performed By: #### C MP #### [facility] [address] [place] [address] Dr. Nilton Mccall MCHC (RBC) [Mass/Vol] 34.1 g/dL Normal 29.9-35.[address] [facility] Comment on above: Performed By: #### C MP #### [facility] [address] [place] [address] Dr. Nilton Mccall MCV (RBC) [Entitic vol] 86.1 fL Normal 81.0-99.[address] [facility] Comment on above: Performed By: #### C MP #### [facility] [address] [place] [address] Dr. Nilton Mccall MONO # 0.5 103/ul Normal 0.3-0.[address] [facility] Comment on above: Performed By: #### C MP #### [facility] [address] [place] [address] Dr. Nilton Mccall Monocytes/100 WBC (Bld) 5.4 % Normal 1.7-12.[address] [facility] Comment on above: Performed By: #### C MP #### [facility] [address] [place] [address] Dr. Nilton Mccall NEUT # 6.3 103/ul Normal 1.4-6.[address] [facility] Comment on above: Performed By: #### C MP #### [facility] [address] [place] [address] Dr. Nilton Mccall Neutrophils/100 WBC (Bld) 69.9 % Normal 43.0-75.[address] [facility] Comment on above: Performed By: #### C MP #### [facility] [address] [place] [address] Dr. Nilton Mccall Platelet mean volume (Bld) [Entitic vol] 9.6 fL Normal 9.5-13.[address] [facility] Comment on above: Performed By: #### C MP #### [facility] [address] [place] [address] Dr. Nilton Mccall PLT 290 103/ul Normal 150-[address] [facility] Comment on above: Performed By: #### C MP #### [facility] [address] [place] [address] Dr. Nilton Mccall RBC 5.04 106/ul Normal 4.20-5.[address] [facility] Comment on above: Performed By: #### C MP #### [facility] [address] [place] [address] Dr. Nilton Mccall WBC 9.1 103/ul Normal 4.0-11.[address] [facility] Comment on above: Performed By: #### C MP #### [facility] [address] [place] [address] STROKE HEAD WOon [...] Date: 2021-06-24 20:56 Normal [facility] CT STROKE HEAD WO NONCONTRAST CT [...] artifact. Repeat imaging is recommended. 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 Electronically authenticated by: MAREK EPSTEIN Date: 2021-06-24 19:15 [address] [facility] Covid-19 PCR (CVDTB)on 06-06 SARS-CoV-2 (COVID-19) RNA CHRISTI+probe Ql (Unsp spec) Not detected Normal NOT DETECTED [facility] Comment on above: Result Comment: When [...] for this test is supported by the Digital Director of Health and Human Service's declaration that [...] #### P T, PTT #### [facility] [address] [place] [address] Dr. Nilton Mccall ER URINE PROFILEon 2 Bilirubin Ql (U) Negative Normal NEGATIVE [facility] Comment on above: Performed By: #### E RUR, PREGU #### [facility] [address] [place] [address] Dr. Nilton Mccall Clarity (U) CLEAR Normal CLEAR [facility] Comment on above: Performed By: #### E RUR, PREGU #### [facility] [address] [place] [address] Dr. Nilton Mccall Color (U) YELLOW Normal YELLOW [facility] Comment on above: Performed By: #### E RUR, PREGU #### [facility] [address] [place] [address] Dr. Nilton Mccall ERUAHD A micrscopic examina tion will be performed if indicated. Normal [facility] Comment on above: Performed By: #### E RUR, PREGU #### [facility] [address] [place] [address] Dr. Nilton Mccall Glucose Ql (U) Negative Normal NEGATIVE [facility] Comment on above: Performed By: #### E RUR, PREGU #### [facility] [address] [place] [address] Dr. Nilton Mccall Hemoglobin Ql (U) Negative Normal NEGATIVE [facility] Comment on above: Performed By: #### E RUR, PREGU #### [facility] [address] [place] [address] Dr. Nilton Mccall Ketones Ql (U) Negative Normal NEGATIVE [facility] Comment on above: Performed By: #### E RUR, PREGU #### [facility] [address] [place] [address] Dr. Nilton Mccall LEUKOCYTES Negative Normal NEGATIVE [facility] Comment on above: Performed By: #### E RUR, PREGU #### [facility] [address] [place] [address] Dr. Nilton Mccall Nitrite Ql (U) Negative Normal NEGATIVE [facility] Comment on above: Performed By: #### E RUR, PREGU #### [facility] [address] [place] [address] Dr. Nilton Mccall pH (U) 6.0 [pH] Normal 5-[address] [facility] Comment on above: Performed By: #### E RUR, PREGU #### [facility] [address] [place] [address] Dr. Nilton Mccall SPEC GRAVITY 1.015 Normal 1.005-<=1. [address] [facility] Comment on above: Performed By: #### E RUR, PREGU #### [facility] [address] [place] [address] Dr. Nilton Mccall UA PROTEIN Negative Normal NEGATIVE/ TRACE [facility] Comment on above: Performed By: #### E RUR, PREGU #### [facility] [address] [place] [address] Dr. Nilton Mccall UR MICRO IND NOT INDICATED Normal [facility] Comment on above: Performed By: #### E RUR, PREGU #### [facility] [address] [place] [address] Dr. Nilton Mccall Urobilinogen Qn (U) 0.2 {Zarina'U}/dL Normal 0.2 - 1. [address] [facility] Comment on above: Performed By: #### E RUR, PREGU #### [facility] [address] [place] [address] Dr. Nilton Mccall LACTATE/LACTIC ACIDon 2021 Lactate [Moles/Vol] 1.0 mmol/L Normal 0.4-1.9 [facility] Comment on above: Performed By: #### P T, PTT #### [facility] [address] [place] [address] Dr. Nilton Mccall LIPASEon 06-24-2021 Lipase [Catalytic activity/Vol] 103.0 U/L Normal 73.0-393.[address] [facility] Comment on above: Performed By: #### C BC #### [facility] [address] [place] [address] Dr. Nilton Mccall PH VENOUS BLOODon 06-24-2021 PCO2 VENOUS 29.4 mmHg Critically low 40.0-52.0 [facility] Comment on above: Performed By: #### P T, PTT #### [facility] [address] [place] [address] Dr. Nilton Mccall pH VENOUS 7.478 Critically high 7.330-7.[address] [facility] Comment on above: Performed By: #### P T, PTT #### [facility] [address] [place] [address] Dr. Nilton Mccall POINT OF CARE GLUCOSEon 06-06 Glucose [Mass/Vol] 107 mg/dL Critically high 74-106 T [facility] Comment on above: Performed By: #### C MP #### [facility] [address] [place] [address] Dr. Nilton Mccall URon 06-24-2021 , QUAL Negative Normal NEGATIVE [facility] Comment on above: Performed By: #### E RUR, PREGU #### [facility] [address] [place] [address] Dr. Nilton Mccall PROTIMEon 06-24-2021 INR Coag (PPP) [Relative time] 0.99 {INR} Normal [facility] Comment on above: Performed By: #### P T, PTT #### [facility] [address] [place] [address] Dr. Nilton Mccall INR GUIDELINES SEE BELOW Normal [facility] Comment on above: Result Comment: JOSS RED INR: 2.0 - 3.0 CONDITIONS NOT LISTED BELOW 2.5 - 3.5 FOR PROSTHETIC HEART VALVE REPLACEMENT 2.5 - 3.5 RECURRENT THROMBOSIS Performed By: #### P T, PTT #### [facility] [address] [place] [address] Dr. Nilton Mccall PT Coag (PPP) [Time] 10.7 s Normal 9.0-11.[address] [facility] Comment on above: Performed By: #### P T, PTT #### [facility] [address] [place] [address] Dr. Nilton Mccall PTTon 06-24-2021 aPTT Coag (Bld) [Time] 32.5 s Normal 22.3-36.[address] [facility] Comment on above: Performed By: #### P T, PTT #### [facility] [address] [place] [address] Dr. Nilton Mccall TSHon 06-24-2021 TSH 0.655 uIU/mL Normal 0.358-3.74 [address] [facility] Comment on above: Performed By: #### C BC #### [facility] [address] [place], [place] [address] Dr. Nilton Mccall TSH RANGE SEE BELOW Normal [facility] Comment on above: Result Comment: <0.3 4 UIU/ml HYPERTHYROID 0.34-5.60 UIU/ml EUTHYROID >5.60 UIU/ml HYPOTHYROID Performed By: #### C BC #### [facility] [address] [place], [place] [address] Dr. Nilton Mccall XR CHEST 1 Von [...] Date: 2021-06-24 19:14 Normal [facility] Basic Metabolic Panelon 06-05 Anion gap [Moles/Vol] 11 mmol/L 9 - 17 mmol/L [employer] Calcium [Mass/Vol] 9.3 mg/dL 8.6 - 10. 4 mg/dL [employer] Chloride [Moles/Vol] 102 mmol/L 98 - 10 7 mmol/L [employer] CO2 [Moles/Vol] 23 mmol/L 20 - 31 mmol/L [facility] Creatinine [Mass/Vol] 0.78 mg/dL 0.50 - 0.90 mg/dL [employer] GFR >60 >60 mL/min [facility] LIFE INTERACTION GFR Non- >60 >60 mL/min [employer] Glucose [Mass/Vol] 160 mg/dL High 70 - 99 mg/dL [facility] LIFE INTERACTION Interpretation and review of laboratory results Abnormal [employer] Potassium [Moles/Vol] 3.7 mmol/L 3.7 - 5.3 mmol/L [employer] Sodium [Moles/Vol] 136 mmol/L 135 - 144 mmol/L [employer] Urea nitrogen (BldV) [Mass/Vol] 12 mg/dL 6 - 20 mg/dL [facility] Urea nitrogen/Creatinine (Bld) [Mass ratio] 15 [facility] CBC with Auto Differentialon 06-21-2021 Absolute Eos # 0.21 [facility] th Absolute Immature Granulocyte 0.03 [facility] Absolute Lymph # 2.43 [facility] alth Absolute [place] [facility] Bas[facility] (Bld) [#/Vol] 0.05 10*3/uL [facility] Basophils/100 WBC (Bld) 1 % 0 - 2 % [facility] Eosinophils/100 WBC (Bld) 3 % 1 - 4 % [facility] Hematocrit (Bld) [Volume fraction] 41.8 % 36.3 - 47.1 % [facility] Hemoglobin.gastroint estinal spec 1 Ql (Stl) 14.0 g/dL 11.9 - 15.1 g/dL [facility] Immature granulocytes/100 WBC (Bld) 0 % 0 [facility] Interpretation and review of laboratory results Abnormal [facility] Lymphocytes/100 WBC (Bld) 29 % 24 - 43 % [facility] MCH (RBC) [Entitic mass] 29.2 pg 25.2 - 33.5 pg [facility] MCHC (RBC) [Mass/Vol] 33.5 g/dL 28.4 - 34.8 g/dL [facility] MCV (RBC) [Entitic vol] 87.1 fL 82.6 - 102.9 fL [facility] Monocytes/100 WBC (Bld) 5 % 3 - 12 % [facility] NRBC Automated 0.0 0.0 per 100 WBC [facility] Platelet distribution width (Bld) [Ratio] 11.5 % Low 11.8 - 14.4 % [facility] Platelet mean volume (Bld) [Entitic vol] 9.6 fL 8.1 - 13.5 fL [facility] Platelets (Bld) [#/Vol] 264 10*3/uL [facility] RBC (Bld) [#/Vol] 4.80 10*6/uL 3.95 - 5.11 m/uL [facility] Segmented neutrophils/100 WBC (Bld) 62 % 36 - 65 % [facility] Segs [facility] 5.12 [facility] ([facility]ld[facility] [#/Vol] 8.3 10*3/uL [facility] - Chemistry and C hemistry - challengeon 06-21-2021 GFR/1.73 sq M.predicted MDRD (S/P/Bld) [Vol rate/Area] [facility] Comment on above: Average GFR for 30-3 9 years old: 107 mL/min/1.73sq m Chronic Kidney Disease: <60 mL/min/1.73sq m Kidney failure: <15 mL/min/1.73sq m eGFR calculated using average adult body mass. Additional eGFR calculator available at: http://www.[employer].com/multiple_crcl_2012.htm Stage 1: Some kidney damage normal GFR Stage 2: Mild kidney damage GFR 60-89 Stage 3: Moderate kidney damage GFR 30-59 Stage 4: Severe kidney damage GFR 15-29 Stage 5: Severe kidney damage GFR <15 ESRD - chronic treatment by dialysis or transplant Magnesiumon 06-21-2021 Magnesium [Mass/Vol] 1.8 mg/dL 1.6 - 2 .6 mg/dL [facility] TSHon 06-21-2021 TSH Qn 1.33 m[IU]/L [facility] Troponinon 06-21-2021 Troponin, High Sensitivity <6 0 - 14 ng/L [facility] Comment on above: High Sensitivity Troponin values cannot be compared with other Troponin methodologies. Patients with high levels of Biotin oral intake (i.e >5mg/day) may have falsely decreased Troponin levels. Samples collected within 8 hours of biotin intake may require additional information for diagnosis. [facility] XR CHEST PORTABLEon 06-22-19 22 No acute cardiopulmo nary disease. MHPN RIS CONSOLIDATED EXAMINATION: ONE XRAY VIEW [...] bone finding. IMPRESSION: No acute cardiopulmonary disease. [employer] Phone: Radiology Study observation (narrative) [employer] Phone: XR CHEST PORTABLEOrdered By: Armando Stern on 06-21-2021 [employer] Work Phone: [facility] 06-16-2021 [facility] HNO ID: [id number] Author: RT Geovanna(R) Service: ? Author Type: [...] DATE: June 16, 2021 TIME: 11:05 AM [facility] MRI BRAIN WO/W IVCONon 06-16 MRI BRAIN WO/W IVCON * * *Final Report* * * DATE OF EXAM: Jun 16 2021 11:27AM [facility] 0295 - MRI BRAIN WO/W IVCON [...] of the brain with and without contrast. Rn Labor And Delivery: [facility] Transcribe Date/Time: Jun 16 2021 11:31A Dictated by : ANNA BOLAND MD This examination was interpreted and the report reviewed and electronically signed by: ANNA BOLAND MD on Jun 16 2021 11:53AM EST [id number] Normal [facility] ACTH [facility] 06-14-2021 Corticotropin (P) [Mass/Vol] 11.6 pg/mL 7.2 - 63.3 pg/mL [facility] Basic Metabolic Panel w/ Ref douglas to MGon 05-20-2021 Anion gap [Moles/Vol] 11 mmol/L 9 - 17 mmol/L [facility] Calcium [Mass/Vol] 9.1 mg/dL 8.6 - 10. 4 mg/dL [facility] Chloride [Moles/Vol] 103 mmol/L 98 - 10 7 mmol/L [facility] CO2 [Moles/Vol] 23 mmol/L 20 - 31 mmol/L [facility] Creatinine [Mass/Vol] 0.74 mg/dL 0.50 - 0.90 mg/dL [facility] [facility] G[facility] >60 >60 mL/min [facility] GFR Non- >60 >60 mL/min [facility] Glucose [Mass/Vol] 101 mg/dL High 70 - 99 mg/dL [facility] Interpretation and review of laboratory results Abnormal [facility] Potassium [Moles/Vol] 3.7 mmol/L 3.7 - 5.3 mmol/L [facility] Sodium [Moles/Vol] 137 mmol/L 135 - 144 mmol/L [facility] Urea nitrogen (BldV) [Mass/Vol] 9 mg/dL 6 - 20 mg/dL [facility] Urea nitrogen/Creatinine (Bld) [Mass ratio] 12 [facility] Brain Natriuretic Peptideon 05-20-2021 Natriuretic peptide B (Bld) [Mass/Vol] 173 pg/mL <300 [facility] Comment on above: An age-independent cutoff point of 300 pg/ml has a 98% negative predictive value excluding acute heart failure. C-Reactive Proteinon 022 CRP [Mass/Vol] mg/L 0.0 - 5.0 mg/L [facility] CBC with Auto Differentialon 05-20-2021 Absolute Eos # 0.18 [facility] th Absolute Immature Granulocyte 0.03 [facility] Absolute Lymph # 1.75 [facility] alth Absolute [place] # 0.29 [facility] lt Basophils (Bld) [#/Vol] 0.03 10*3/uL [facility] Basophils/100 WBC (Bld) 0 % 0 - 2 % [facility] Eosinophils/100 WBC (Bld) 3 % 1 - 4 % [facility] Hematocrit (Bld) [Volume fraction] 43.8 % 36.3 - 47.1 % [facility] Hemoglobin.gastroint estinal spec 1 Ql (Stl) 14.6 g/dL 11.9 - 15.1 g/dL [facility] Immature granulocytes/100 WBC (Bld) 0 % 0 [facility] Interpretation and review of laboratory results Abnormal [facility] Lymphocytes/100 WBC (Bld) 25 % 24 - 43 % [facility] MCH (RBC) [Entitic mass] 29.0 pg 25.2 - 33.5 pg [facility] MCHC (RBC) [Mass/Vol] 33.3 g/dL 28.4 - 34.8 g/dL [facility] MCV (RBC) [Entitic vol] 86.9 fL 82.6 - 102.9 fL [facility] Monocytes/100 WBC (Bld) 4 % 3 - 12 % [facility] NRBC Automated 0.0 0.0 per 100 WBC [facility] Platelet distribution width (Bld) [Ratio] 11.5 % Low 11.8 - 14.4 % [facility] Platelet mean volume (Bld) [Entitic vol] 9.5 fL 8.1 - 13.5 fL [facility] Platelets (Bld) [#/Vol] 242 10*3/uL [facility] RBC (Bld) [#/Vol] 5.04 10*6/uL 3.95 - 5.11 m/uL [facility] Segmented neutrophils/100 WBC (Bld) 68 % High 36 - 65 % [facility] Segs [facility] 4.67 [facility] (Bld[facility] [#/Vol] 7.0 10*3/uL [facility] CT ABDOMEN PELVIS WO CONTRAS T Additional [...] or obstruction. No suspicious osseous lesions. [facility] eJsus Unger P - 05/20/2021 EXAMINATION: CT OF [...] without evidence of incarceration. 3. Hepatic steatosis [employer] Phone: Radiology Study observation (narrative) [employer] Phone: CT ABDOMEN PELVIS WO CONTRAS T Additional Contrast? NoneOrdered By: Jesus Unger on 05-20-2021 [employer] Phone: D-Dimer, Quantitativeon 05-06 D-[employer]imer, Quant 0.34 [facility] Comment on above: When combined with [...] more prevalent in patients with distal DVT. [employer] Drug screen multi urineon Amphetamine Screen, Ur Negative NEGATIVE [employer] Barbiturate Screen, Ur Negative NEGATIVE [employer] Benzodiazepine Screen, Urine Negative NEGATIVE [employer] Buprenorphine Urine Negative NEGATIVE [employer] Cannabinoid Scrn, Ur Negative NEGATIVE [employer] Cocaine Metabolite, Urine Negative NEGATIVE [employer] Methadone Screen, Urine Negative NEGATIVE [employer] Methamphetamine, Urine Negative NEGATIVE [employer] Opiates, Urine Negative NEGATIVE [employer] [facility] th Oxycodone Screen, Ur Negative NEGATIVE [employer] [facility] [employer] Phencyclidine, Urine Negative NEGATIVE [employer] Propoxyphene, Urine Negative NEGATIVE [employer] Tricyclic Antidepressants, Urine Negative NEGATIVE [facility] Comment on above: Drug screen results are to be used for medical purposes only. All positive results are unconfirmed. Testing for employment or legal uses should be sent to a reference laboratory for confirmation. [employer] EKG 12 LeadOrdered By: Gosia riosad on 05-20-2021 Atrial Rate 51 BPM [employer] Work Phone: P [place] 56 degrees [employer] Work Phone: P-R Interval 152 ms [employer] Work Phone: Q-T Interval 448 ms [employer] Work Phone: QRS Duration 90 ms [employer] Work Phone: QTc Calculation (Bazett) 412 ms [employer] Work Phone: R [place] 79 degrees [employer] Work Phone: T [place] 62 degrees [employer] Work Phone: Ventricular Rate 51 BPM [employer] Work Phone: [employer] Work Phone: EKG 12 Leadon 05-20-2021 Sinus bradycardia wi th sinus arrhythmia T wave abnormality, consider anterior ischemia Abnormal ECG When compared with ECG of 16-APR-2021 20:11, No significant change was found Confirmed by Gosia Rangel MD ([id number]) on 05/20/2021 6:51:52 PM [facility] Gosia Rangel MD - 05/20/2021 Sinus bradycardia with sinus arrhythmia T wave abnormality, consider anterior ischemia Abnormal ECG When compared with ECG of 16-APR-2021 20:11, No significant change was found Confirmed by Gosia Rangel MD ([id number]) on 05/20/2021 6:51:52 PM [employer] Work Phone: Laboratory - Chemistry and C hemistry - challengeon 05-20-2021 GFR/1.73 sq M.predicted MDRD (S/P/Bld) [Vol rate/Area] [facility] Comment on above: Average GFR for 30-3 9 years old: 107 mL/min/1.73sq m Chronic Kidney Disease: <60 mL/min/1.73sq m Kidney failure: <15 mL/min/1.73sq m eGFR calculated using average adult body mass. Additional eGFR calculator available at: http://www.BookMyForex.com/multiple_crcl_2012.htm Stage 1: Some kidney damage normal GFR Stage 2: Mild kidney damage GFR 60-89 Stage 3: Moderate kidney damage GFR 30-59 Stage 4: Severe kidney damage GFR 15-29 Stage 5: Severe kidney damage GFR <15 ESRD - chronic treatment by dialysis or transplant Lactic Acidon 05-20-2021 Lactate [Moles/Vol] 0.9 mmol/L 0.5 - 2. 2 mmol/L [facility] Lipaseon 05-20-2021 Lipase [Catalytic activity/Vol] 46 U/L 13 - 60 U/L [facility] Microscopic Urinalysison - [facility] Bacteria, UA TRACE Abnormal None [facility] Epithelial Cells UA 0 TO 2 [facility] Interpretation and review of laboratory results Abnormal [facility] RBC, UA None [facility] WBC, UA None [facility] No Panel Informationon 05-20 [facility] Sedimentation Rateon 022 Sed Rate 9 [facility] TSH with Reflexon 05-20-2021 TSH Qn 1.20 m[IU]/L [facility] Troponinon 05-20-2021 Troponin, High Sensitivity <6 0 - 14 ng/L [facility] Comment on above: High Sensitivity Troponin values cannot be compared with other Troponin methodologies. Patients with high levels of Biotin oral intake (i.e >5mg/day) may have falsely decreased Troponin levels. Samples collected within 8 hours of biotin intake may require additional information for diagnosis. [facility] Troponin, High Sensitivity <6 0 - 14 ng/L [facility] Comment on above: High Sensitivity Troponin values cannot be compared with other Troponin methodologies. Patients with high levels of Biotin oral intake (i.e >5mg/day) may have falsely decreased Troponin levels. Samples collected within 8 hours of biotin intake may require additional information for diagnosis. Urinalysis with Reflex to Cu ltureon 05-20-2021 Bilirubin [facility], [facility]A Yellow Yellow [facility] Glucose, Ur Negative NEGATIVE [facility] Interpretation and review of laboratory results Abnormal [facility] Ketones Ql (U) Negative NEGATIVE [facility] Leukocyte esterase Test strip Ql (U) Negative NEGATIVE [facility] Nitrite, Urine Negative NEGATIVE [facility] pH, UA 6.0 [facility] Protein, UA Negative NEGATIVE [facility] Specific [place], UA <1.005 Low [facility] Turbidity UA Clear Clear [facility] Urine Hgb Negative NEGATIVE [facility] Urobilinogen, Urine Normal Normal [facility] XR CHEST PORTABLEon 05-21-19 No abnormalities not ed. [facility] EXAMINATION: ONE XRAY VIEW OF THE CHEST 05/20/2021 1:33 pm COMPARISON: 04/16/2021 HISTORY: ORDERING SYSTEM PROVIDED HISTORY: chest pain TECHNOLOGIST PROVIDED HISTORY: chest pain FINDINGS: The lungs appear clear. The heart and mediastinal structures are unremarkable. Bony thorax appears normal. Visualized upper abdomen is unremarkable. [facility] Yoel Shabazz MD - 05/20/2021 EXAMINATION: ONE XRAY VIEW OF THE CHEST 05/20/2021 1:33 pm COMPARISON: 04/16/2021 HISTORY: ORDERING SYSTEM PROVIDED HISTORY: chest pain TECHNOLOGIST PROVIDED HISTORY: chest pain FINDINGS: The lungs appear clear. The heart and mediastinal structures are unremarkable. Bony thorax appears normal. Visualized upper abdomen is unremarkable. IMPRESSION: No abnormalities noted. [employer] Work Phone: Radiology Study observation (narrative) [employer] Phone: XR CHEST PORTABLEOrdered By: Yoel Shabazz on 05-20-2021 [employer] Phone: Basic Metabolic Panel w/ Ref douglas to MGon 04-16-2021 Anion gap [Moles/Vol] 11 mmol/L 9 - 17 mmol/L [employer] Calcium [Mass/Vol] 9.8 mg/dL 8.6 - 10. 4 mg/dL [facility] Chloride [Moles/Vol] 99 mmol/L 98 - 10 7 mmol/L [facility] CO2 [Moles/Vol] 24 mmol/L 20 - 31 mmol/L [facility] Creatinine [Mass/Vol] 0.85 mg/dL 0.50 - 0.90 mg/dL [facility] GFR >60 >60 mL/min [facility] GFR Non- >60 >60 mL/min [facility] Glucose [Mass/Vol] 97 mg/dL 70 - 99 mg/dL [facility] Interpretation and review of laboratory results Abnormal [facility] Potassium [Moles/Vol] 3.8 mmol/L 3.7 - 5.3 mmol/L [facility] Sodium [Moles/Vol] 134 mmol/L Low 135 - 144 mmol/L [facility] Urea nitrogen (BldV) [Mass/Vol] 9 mg/dL 6 - 20 mg/dL [facility] Urea nitrogen/Creatinine (Bld) [Mass ratio] 11 [facility] C-Reactive Proteinon 022 CRP [Mass/Vol] mg/L 0.0 - 5.0 mg/L [facility] CBC with Auto Differentialon 04-16-2021 Absolute Eos # 0.19 [facility] th Absolute Immature Granulocyte 0.03 [facility] Absolute Lymph # 2.01 [facility] alth Absolute [place] # 0.47 [facility] lth Basophils (Bld) [#/Vol] 0.05 10*3/uL [facility] Basophils/100 WBC (Bld) 1 % 0 - 2 % [facility] Eosinophils/100 WBC (Bld) 2 % 1 - 4 % [facility] Hematocrit (Bld) [Volume fraction] 44.1 % 36.3 - 47.1 % [facility] Hemoglobin.gastroint estinal spec 1 Ql (Stl) 14.9 g/dL 11.9 - 15.1 g/dL [facility] Immature granulocytes/100 WBC (Bld) 0 % 0 [facility] Interpretation and review of laboratory results Abnormal [facility] Lymphocytes/100 WBC (Bld) 22 % Low 24 - 43 % [facility] MCH (RBC) [Entitic mass] 29.2 pg 25.2 - 33.5 pg [facility] MCHC (RBC) [Mass/Vol] 33.8 g/dL 28.4 - 34.8 g/dL [facility] MCV (RBC) [Entitic vol] 86.5 fL 82.6 - 102.9 fL [facility] Monocytes/100 WBC (Bld) 5 % 3 - 12 % [facility] NRBC Automated 0.0 0.0 per 100 WBC [facility] Platelet distribution width (Bld) [Ratio] 11.4 % Low 11.8 - 14.4 % [facility] Platelet mean volume (Bld) [Entitic vol] 9.5 fL 8.1 - 13.5 fL [facility] Platelets (Bld) [#/Vol] 265 10*3/uL [facility] RBC (Bld) [#/Vol] 5.10 10*6/uL 3.95 - 5.11 m/uL [facility] Segmented neutrophils/100 WBC (Bld) 70 % High 36 - 65 % [facility] Segs Absolute 6.34 [facility] W[facility] (Bld) [#/Vol] 9.1 10*3/uL [facility] CT ABDOMEN PELVIS WO CONTRAS T Additional [...] lumbosacral facets and at the sacroiliac joints. [facility] JettMichael - 04/16 EXAMINATION: CT OF THE ABDOMEN [...] the liver. Previous cholecystectomy without biliary dilatation. [employer] Phone: Radiology Study observation (narrative) [employer] Phone: CT ABDOMEN PELVIS WO CONTRAS T Additional Contrast? NoneOrdered By: Michael Frausto on 04-16-2021 [employer] Phone: D-Dimer, Quantitativeon 04-05 D-Dimer, Quant 0.37 [facility] Comment on above: When combined with [...] more prevalent in patients with distal DVT. [employer] Hepatic Function Panelon Albumin [Mass/Vol] 4.7 g/dL 3.5 - 5.2 g/dL [facility] Albumin/Globulin [Mass ratio] 1.8 {ratio} [facility] ALP (Bld) [Catalytic activity/Vol] 73 U/L 35 - 104 U/L [facility] ALT [Catalytic activity/Vol] 24 U/L 5 - 33 U/L [facility] AST [Catalytic activity/Vol] 14 U/L <32 [facility] Bilirubin [Mass/Vol] 0.35 mg/dL 0.3 - 1 .2 mg/dL [facility] Bilirubin, Indirect Can not be calculated 0.00 - 1.00 mg/dL [facility] Bilirubin.indirect [Mass/Vol] mg/dL <0.31 mg/dL [facility] Free PSA/Total PSA [Mass fraction] 7.3 g/dL 6.4 - 8.3 g/dL [facility] Laboratory - Chemistry and C hemistry - challengeon 04-16-2021 GFR/1.73 sq M.predicted MDRD (S/P/Bld) [Vol rate/Area] [facility] Comment on above: Average GFR for 30-3 9 years old: 107 mL/min/1.73sq m Chronic Kidney Disease: <60 mL/min/1.73sq m Kidney failure: <15 mL/min/1.73sq m eGFR calculated using average adult body mass. Additional eGFR calculator available at: http://www.BookMyForex.com/multiple_crcl_2012.htm Stage 1: Some kidney damage normal GFR Stage 2: Mild kidney damage GFR 60-89 Stage 3: Moderate kidney damage GFR 30-59 Stage 4: Severe kidney damage GFR 15-29 Stage 5: Severe kidney damage GFR <15 ESRD - chronic treatment by dialysis or transplant Lipaseon 04-16-2021 Lipase [Catalytic activity/Vol] 29 U/L 13 - 60 U/L [employer] Microscopic Urinalysison - [employer] Bacteria, UA 2+ Abnormal None [employer] Epithelial Cells UA 2 TO 5 [employer] Interpretation and review of laboratory results Abnormal [employer] RBC, UA 0 TO 2 [employer] WBC, UA 2 TO 5 [facility] No Panel Informationon 04-16 [employer] , Urineon Beta HCG ( test) Ql (U) Negative NEGATIVE [employer] Comment on above: Specimens with hCG l evels near the threshold of the test (25 mIU/mL) may give a negative or indeterminate result. In such cases, another test should be performed with a new specimen in 48-72 hours. If early is suspected clinically in this setting, correlation with quantitative serum b-hCG level is suggested. [employer] has confirmed the use of plasma for this test. This has not been cleared or approved by the U.S. Food and Drug Administration. The FDA has determined that such clearance is not necessary. [employer] Sedimentation Rateon 022 Sed Rate 13 mm 0 - 20 mm [employer] Troponinon 04-16-2021 Troponin, High Sensitivity <6 0 - 14 ng/L [employer] Comment on above: High Sensitivity Troponin values cannot be compared with other Troponin methodologies. Patients with high levels of Biotin oral intake (i.e >5mg/day) may have falsely decreased Troponin levels. Samples collected within 8 hours of biotin intake may require additional information for diagnosis. [employer] Urinalysis with Reflex to Cu ltureon 04-16-2021 Bilirubin Urine Negative NEGATIVE [facility] Color, UA Yellow Yellow [employer] Glucose, Ur Negative NEGATIVE [employer] Interpretation and review of laboratory results Abnormal [employer] Ketones Ql (U) Negative NEGATIVE [facility] th Leukocyte esterase Test strip Ql (U) TRACE Abnormal NEGATIVE [employer] Nitrite, Urine Negative NEGATIVE [facility] th pH, UA 6.0 [facility] Protein, UA Negative NEGATIVE [facility] Specific [place], UA 1.015 [facility] Turbidity UA Clear Clear [facility] Urine Hgb Negative NEGATIVE [facility] Urobilinogen, Urine Normal Normal [facility] XR CHEST 1 VIEWon 04-16-2021 Clear lungs. No acut e cardiopulmonary abnormality. [facility] EXAMINATION: ONE XRAY VIEW [...] normal limits. No significant thoracic osseous abnormality. [facility] Christy Becerra MD - 04/16/2021 EXAMINATION: [...] IMPRESSION: Clear lungs. No acute cardiopulmonary abnormality. [employer] Phone: Radiology Study observation (narrative) [employer] Phone: XR CHEST 1 VIEWOrdered By: Arsenio Becerra on 04-16-2021 [employer] Phone: PULMONARY FUNCTION (450)on 0 03-07-2021 PULMONARY FUNCTION (450) [address] [address] PULMONARY FUNCTION PATIENT NAME: LEANA TRAN : 1985 MED REC NO: [id number] ROOM: ACCOUNT NO: [id number] ADMIT DATE: 03/07/2021 PROVIDER: Moris Alvarado DATE [...] is normal at 79% of predicted. MORIS ERIC [id number] Doc#: [id number] CC: Normal [facility] [id number] 03-07-2021 SARS-CoV-2 (COVID-19) RNA CHRISTI+probe Ql (Unsp spec) Not detected Normal [facility] Comment on above: Result Comment: Rapid NAAT: [...] management decisions. Fact sheet for Healthcare Providers: https://www.fda.gov/media/331489/download Fact sheet for Patients: https://www.fda.gov/media/488700/download Methodology: Isothermal Nucleic Acid Amplification Performed By: #### C OVRB #### [facility] [address] [place] [address] Assistant Controller: Belén Dale MD Basic Metabolic Panel w/ Ref douglas to MGOrdered By: Araseli Barrett on 11-01-2020 Anion gap [Moles/Vol] 19 mmol/L High 9 - 17 mmol/L [employer] Phone: Calcium [Mass/Vol] 9.4 mg/dL 8.6 - 10. 4 mg/dL [employer] Phone: Chloride [Moles/Vol] 94 mmol/L Low 98 - 10 7 mmol/L [employer] Phone: CO2 [Moles/Vol] 20 mmol/L 20 - 31 mmol/L [employer] Phone: Creatinine [Mass/Vol] 1.2 mg/dL High 0.50 - 0.90 mg/dL [employer] Phone: GFR >60 >60 mL/min [employer] Phone: GFR Non- 51 mL/min Low >60 [employer] Phone: Glucose [Mass/Vol] 217 mg/dL High 70 - 99 mg/dL [employer] Phone: Interpretation and review of laboratory results Abnormal [employer] Phone: Potassium [Moles/Vol] 3.5 mmol/L Low 3.7 - 5.3 mmol/L [employer] Work Phone: Sodium [Moles/Vol] 133 mmol/L Low 135 - 144 mmol/L [employer] Work Phone: Urea nitrogen (BldV) [Mass/Vol] 10 mg/dL 6 - 20 mg/dL [employer] Work Phone: Urea nitrogen/Creatinine (Bld) [Mass ratio] 8 Low [employer] Work Phone: [employer] Work Phone: CBC Auto DifferentialOrdered By: Araseli Barrett on 11-01-2020 Absolute Eos # <0.03 [facility] Work Phone: Absolute Immature Granulocyte 0.33 High [employer] Work Phone: Absolute Lymph # 0.80 Low [employer] [facility] Work Phone: Absolute [place] # 0.42 [facility] Work Phone: Basophils (Bld) [#/Vol] 10*3/uL [employer] Work Phone: Basophils/100 WBC (Bld) 0 % 0 - 2 % [employer] Work Phone: Differential Type NOT REPORTED [employer] Work Phone: Eosinophils/100 WBC (Bld) 0 % Low 1 - 4 % [employer] Work Phone: Hematocrit (Bld) [Volume fraction] 42.8 % 36.3 - 47.1 % [employer] Work Phone: Hemoglobin.gastroint estinal spec 1 Ql (Stl) 14.7 g/dL 11.9 - 15.1 g/dL [employer] Work Phone: Immature granulocytes/100 WBC (Bld) 4 % High 0 [employer] Work Phone: Interpretation and review of laboratory results Abnormal [employer] Work Phone: Lymphocytes/100 WBC (Bld) 9 % Low 24 - 43 % [employer] Phone: MCH (RBC) [Entitic mass] 30.1 pg 25.2 - 33.5 pg [employer] Phone: MCHC (RBC) [Mass/Vol] 34.3 g/dL 28.4 - 34.8 g/dL [employer] Phone: MCV (RBC) [Entitic vol] 87.5 fL 82.6 - 102.9 fL [employer] Phone: Monocytes/100 WBC (Bld) 5 % 3 - 12 % [employer] Phone: NRBC Automated 0.0 0.0 per 100 WBC [employer] Phone: Platelet distribution width (Bld) [Ratio] 11.4 % Low 11.8 - 14.4 % [employer] Phone: Platelet Estimate NOT REPORTED [employer] Phone: Platelet mean volume (Bld) [Entitic vol] 9.4 fL 8.1 - 13.5 fL [employer] Phone: Platelets (Bld) [#/Vol] 207 10*3/uL [employer] Phone: RBC (Bld) [#/Vol] 4.89 10*6/uL 3.95 - 5.11 m/uL [employer] Work Phone: RBC (Bld) [#/Vol] NOT REPORTED [employer] Phone: Segmented neutrophils/100 WBC (Bld) 82 % High 36 - 65 % [employer] Phone: Segs Absolute 7.82 [employer] Work Phone: WBC (Bld) [#/Vol] 9.4 10*3/uL [employer] Work Phone: WBC (Bld) [#/Vol] NOT REPORTED [employer] Phone: [employer] Phone: D-Dimer, QuantitativeOrdered By: Araseli Barrett on 11-01-2020 D-[employer]imer, Quant <0.27 [employer] Phone: Comment on above: When combined with [...] more prevalent in patients with distal DVT. [employer] Phone: Laboratory - Chemistry and C hemistry - challengeOrdered By: Araseli Barrett on 11-01-2020 GFR/1.73 sq M.predicted MDRD (S/P/Bld) [Vol rate/Area] [employer] Phone: Comment on above: Average GFR for 30-3 9 years old: 107 mL/min/1.73sq m Chronic Kidney Disease: <60 mL/min/1.73sq m Kidney failure: <15 mL/min/1.73sq m eGFR calculated using average adult body mass. Additional eGFR calculator available at: http://www.BookMyForex.com/multiple_crcl_2012.htm Stage 1: Some kidney damage normal GFR Stage 2: Mild kidney damage GFR 60-89 Stage 3: Moderate kidney damage GFR 30-59 Stage 4: Severe kidney damage GFR 15-29 Stage 5: Severe kidney damage GFR <15 ESRD - chronic treatment by dialysis or transplant MagnesiumOrdered By: Araseli Barrett on 11-01-2020 Magnesium [Mass/Vol] 1.6 mg/dL 1.6 - 2 .6 mg/dL [employer] Phone: [employer] Phone: TroponinOrdered By: Araseli Barrett on 11-01-2020 Troponin Interp NOT REPORTED [employer] [facility] Work Phone: Troponin T NOT REPORTED <0.03 ng/mL [employer] Phone: Troponin, High Sensitivity <6 0 - 14 ng/L [employer] Phone: Comment on above: High Sensitivity Troponin values cannot be compared with other Troponin methodologies. Patients with high levels of Biotin oral intake (i.e >5mg/day) may have falsely decreased Troponin levels. Samples collected within 8 hours of biotin intake may require additional information for diagnosis. [employer] Phone: XR CHEST PORTABLEOrdered By: Araseli Barrett on 11-01-2020 Negative chest. [facility] [employer] [facility] Work Phone: EXAMINATION: ONE XRA Y VIEW OF THE CHEST 11/01/2020 2:31 pm COMPARISON: 12/08/2014 HISTORY: ORDERING SYSTEM PROVIDED HISTORY: cough FINDINGS: The lungs are without acute focal process. No effusion or pneumothorax. The cardiomediastinal silhouette is normal. The osseous structures are intact without acute process. [employer] Phone: Oswaldo, Mhpn Incoming R adiant Results From [employer] - 11/01/2020 2:41 PM EDT EXAMINATION: ONE XRAY VIEW OF THE CHEST 11/01/2020 2:31 pm COMPARISON: 12/08/2014 HISTORY: ORDERING SYSTEM PROVIDED HISTORY: cough FINDINGS: The lungs are without acute focal process. No effusion or pneumothorax. The cardiomediastinal silhouette is normal. The osseous structures are intact without acute process. IMPRESSION: Negative chest. [employer] Phone: [employer] Phone: [facility]15-2020 [facility] ([id number]) 1985 F Date Time Provider Department 09/15/20 LIS MORAES [facility] During your visit today, we recorded the following information about you: Demi Santos 09/15/2020 4:44 PM Signed Received MRI Brain report by fax from [facility]. Scanned to patient's chart. Savanna Juarez [...] Status:Closed by DEMI JOHNSON on 11/17/20 Normal [facility] CNOVon 09-06-2020 CNOV Office Visit (NEADFV ) LEANA TRAN ([id number]) 1985 F Date Time Provider Department 09/06/20 2:00 PM LIS MORAES NEBRANNONFV During your visit today, we recorded the following information about you: Temperature Pulse Blood pressure Weight 97.8 degrees 67/minute 112/73 102.1 kg Height 1.626 m Lis Moraes MD 09/06/2020 3:10 PM Signed PROGRESS NOTE- HEADACHE SERVICE DATE: September 06, 2020 Location: [facility] neurological institute Participants: patient and provider [...] Contrast [Con (more content not included)... Normal [facility] Vital Signs Date Time Vital Sign Value Performing Clinician Facility 02-27-2024 08:18-0500 Body height 162.6 cm Cas Dowell MD Work Phone: [facility] 02-27-2024 08:18-0500 Body mass index (BMI) [Ratio] 37.76 kg/m2 Cas Dowell MD Work Phone: [facility] 02-27-2024 08:18-0500 Body temperature 97.11 [degF] Cas Dowell MD Work Phone: [facility] 02-27-2024 08:18-0500 Body weight 99.79 kg Cas Dowell MD Work Phone: [facility] 02-27-2024 08:18-0500 Diastolic blood pressure 64 mm[Hg] Cas Dowell MD Work Phone: [facility] 02-27-2024 08:18-0500 Heart rate 77 /min Cas Dowell MD Work Phone: [facility] 02-27-2024 08:18-0500 Respiratory rate 20 /min Cas Dowell MD Work Phone: [facility] 02-27-2024 08:18-0500 SaO2% (BldA) [Mass fraction] 98 % Cas Dowell MD Work Phone: [facility] 02-27-2024 08:18-0500 Systolic blood pressure 120 mm[Hg] Cas Dowell MD Work Phone: [facility] 02-11-2024 09:59-0500 Body height 162.6 cm Cas Dowell MD Work Phone: [facility] 02-11-2024 09:59-0500 Body mass index (BMI) [Ratio] 37.93 kg/m2 Cas Dowell MD Work Phone: [facility] 02-11-2024 09:59-0500 Body temperature 97.5 [degF] Cas Dowell MD Work Phone: [facility] 02-11-2024 09:59-0500 Body weight 100.25 kg Cas Dowell MD Work Phone: [facility] 02-11-2024 09:59-0500 Diastolic blood pressure 68 mm[Hg] Cas Dowell MD Work Phone: [facility] 02-11-2024 09:59-0500 Heart rate 90 /min Cas Dowell MD Work Phone: [facility] 02-11-2024 09:59-0500 Respiratory rate 22 /min Cas Dowell MD Work Phone: [facility] 02-11-2024 09:59-0500 SaO2% (BldA) [Mass fraction] 97 % Cas Dowell MD Work Phone: [facility] 02-11-2024 09:59-0500 Systolic blood pressure 120 mm[Hg] Cas Dowell MD Work Phone: [facility] 01-02-2024 10:07-0500 Body height 162.6 cm Marni Flowers [employer] Work Phone: [facility] 01-02-2024 10:07-0500 Body mass index (BMI) [Ratio] 38.11 kg/m2 Marni Flowers [employer] Work Phone: [facility] 01-02-2024 10:07-0500 Body weight 100.7 kg Marni Flowers [employer] Work Phone: [facility] 01-02-2024 10:07-0500 Diastolic blood pressure 77 mm[Hg] Marni Flowers [employer] Work Phone: [facility] 01-02-2024 10:07-0500 Heart rate 79 /min Marni Flowers [employer] Work Phone: [facility] 01-02-2024 10:07-0500 Systolic blood pressure 127 mm[Hg] Marni Flowers [employer] Work Phone: [facility] 11-22-2023 09:01-0400 Body mass index (BMI) [Ratio] 38.42 kg/m2 Akila Yao MD Work Phone: [facility] 11-22-2023 09:01-0400 Body weight 101.52 kg Akila Yao MD Work Phone: [facility] 11-22-2023 09:01-0400 Diastolic blood pressure 84 mm[Hg] Akila Yao MD Work Phone: [facility] 11-22-2023 09:01-0400 Heart rate 59 /min Akila Yao MD Work Phone: [facility] 11-22-2023 09:01-0400 Systolic blood pressure 124 mm[Hg] Akila Yao MD Work Phone: [facility] 11-20-2023 11:40-0400 Body mass index (BMI) [Ratio] 38.11 kg/m2 Rubens Glenroy DO Work Phone: [facility] 11-20-2023 11:40-0400 Body weight 100.7 kg Rubens Glenroy DO Work Phone: [facility] 11-20-2023 11:40-0400 Diastolic blood pressure 80 mm[Hg] Rubens Glenroy DO Work Phone: [facility] 11-20-2023 11:40-0400 Systolic blood pressure 120 mm[Hg] Rubens Glenroy DO Work Phone: [facility] 11-07-2023 10:33-0400 Body height 162.6 cm Christy Painting MD Work Phone: [facility] 11-07-2023 10:33-0400 Body mass index (BMI) [Ratio] 37.93 kg/m2 Christy Painting MD Work Phone: [facility] 11-07-2023 10:33-0400 Body weight 100.25 kg Christy Painting MD Work Phone: [facility] 10-10-2023 09:06-0400 Body height 162.6 cm Cas Dowell MD Work Phone: [facility] 10-10-2023 09:06-0400 Body mass index (BMI) [Ratio] 37.76 kg/m2 Cas Dowell MD Work Phone: [facility] 10-10-2023 09:06-0400 Body temperature 97.81 [degF] Cas Dowell MD Work Phone: [facility] 10-10-2023 09:06-0400 Body weight 99.79 kg Cas Dowell MD Work Phone: [facility] 10-10-2023 09:06-0400 Diastolic blood pressure 78 mm[Hg] Cas Dowell MD Work Phone: [facility] 10-10-2023 09:06-0400 Heart rate 82 /min Cas Dowell MD Work Phone: [facility] 10-10-2023 09:06-0400 Respiratory rate 20 /min Cas Dowell MD Work Phone: [facility] 10-10-2023 09:06-0400 SaO2% (BldA) [Mass fraction] 98 % Cas Dowell MD Work Phone: [facility] 10-10-2023 09:06-0400 Systolic blood pressure 122 mm[Hg] Cas Dowell MD Work Phone: [facility] 10-02-2023 14:46-0400 Blood Pressure Location Selma Orzech [facility] 10-02-2023 14:46-0400 Body temperature 98.6 [degF] Selma Orzech [facility] 10-02-2023 14:46-0400 Diastolic blood pressure 84 mm[Hg] Selma Orzech [facility] 10-02-2023 14:46-0400 Heart rate 68 /min Selma Orzech [facility] 10-02-2023 14:46-0400 Respiratory rate 16 /min Selma Orzech [facility] 10-02-2023 14:46-0400 Systolic blood pressure 130 mm[Hg] Selma Orzech [facility] 10-01-2023 09:45-0400 Body height 162.6 cm Fuentes Amaral MD Work Phone: [facility] 10-01-2023 09:45-0400 Body mass index (BMI) [Ratio] 37.82 kg/m2 Fuentes Amaral MD Work Phone: [facility] 10-01-2023 09:45-0400 Body temperature 97 [degF] Fuentes Amaral MD Work Phone: [facility] 10-01-2023 09:45-0400 Body weight 100 kg Fuentes Amaral MD Work Phone: [facility] 10-01-2023 09:45-0400 Diastolic blood pressure 84 mm[Hg] Fuentes Amaral MD Work Phone: [facility] 10-01-2023 09:45-0400 Heart rate 71 /min Fuentes Amaral MD Work Phone: [facility] 10-01-2023 09:45-0400 Respiratory rate 16 /min Fuentes Amaral MD Work Phone: [facility] 10-01-2023 09:45-0400 SaO2% (BldA) [Mass fraction] 99 % Fuentes Amaral MD Work Phone: [facility] 10-01-2023 09:45-0400 Systolic blood pressure 123 mm[Hg] Fuentes Amaral MD Work Phone: [facility] 09-26-2023 09:28-0400 Body height 162.6 cm Cas Dowell MD Work Phone: [facility] 09-26-2023 09:28-0400 Body mass index (BMI) [Ratio] 38.11 kg/m2 Cas Dowell MD Work Phone: [facility] 09-26-2023 09:28-0400 Body temperature 97.81 [degF] Cas Dowell MD Work Phone: [facility] 09-26-2023 09:28-0400 Body weight 100.7 kg Cas Dowell MD Work Phone: [facility] 09-26-2023 09:28-0400 Diastolic blood pressure 68 mm[Hg] Cas Dowell MD Work Phone: [facility] 09-26-2023 09:28-0400 Heart rate 63 /min Cas Dowell MD Work Phone: [facility] 09-26-2023 09:28-0400 Respiratory rate 18 /min Cas Dowell MD Work Phone: [facility] 09-26-2023 09:28-0400 SaO2% (BldA) [Mass fraction] 99 % Cas Dowell MD Work Phone: [facility] 09-26-2023 09:28-0400 Systolic blood pressure 122 mm[Hg] Cas Dowell MD Work Phone: [facility] 05-08-2023 08:47-0400 Body mass index (BMI) [Ratio] 36.9 kg/m2 Sarah Best [employer] Work Phone: [facility] 05-08-2023 08:47-0400 Body weight 97.52 kg Sarah Best [employer] Work Phone: [facility] 05-08-2023 08:47-0400 Diastolic blood pressure 87 mm[Hg] Sarah Best [employer] Work Phone: [facility] 05-08-2023 08:47-0400 Heart rate 63 /min Sarah Best [employer] Work Phone: [facility] 05-08-2023 08:47-0400 Systolic blood pressure 134 mm[Hg] Sarah Best [employer] Work Phone: [facility] 10-02-2022 09:29-0400 Body height 162.6 cm Fuentes Amaral MD Work Phone: [facility] 10-02-2022 09:29-0400 Body temperature 97.7 [degF] Fuentes Amaral MD Work Phone: [facility] 10-02-2022 09:29-0400 Body weight 100.15 kg Fuentes Amaral MD Work Phone: [facility] 10-02-2022 09:29-0400 Diastolic blood pressure 79 mm[Hg] Fuentes Amaral MD Work Phone: [facility] 10-02-2022 09:29-0400 Heart rate 58 /min Fuentes Amaral MD Work Phone: [facility] 10-02-2022 09:29-0400 Respiratory rate 16 /min Fuentes Amaral MD Work Phone: [facility] 10-02-2022 09:29-0400 SaO2% (BldA) [Mass fraction] 99 % Fuentes Amaral MD Work Phone: [facility] 10-02-2022 09:29-0400 Systolic blood pressure 140 mm[Hg] Fuentes Amaral MD Work Phone: [facility] 09-05-2022 08:23-0400 Blood Pressure Location LORAINE BURNHAM [facility] 09-05-2022 08:23-0400 Diastolic blood pressure 79 mm[Hg] LORAINE BURNHAM [facility] 09-05-2022 08:23-0400 Heart rate 60 /min LORAINE BURNHAM [facility] 09-05-2022 08:23-0400 Systolic blood pressure 133 mm[Hg] LORAINE BURNHAM [facility] 04-03-2022 10:39-0500 Body height 162.6 cm Fuentes Amaral MD Work Phone: [facility] 02-27-2023 10:39-0500 Body temperature 97.9 [degF] Fuentes Amaral MD Work Phone: [facility] 04-03-2022 10:39-0500 Body weight 99.34 kg Fuentes Amaral MD Work Phone: [facility] 04-03-2022 10:39-0500 Diastolic blood pressure 65 mm[Hg] Fuentes Amaral MD Work Phone: [facility] 04-03-2022 10:39-0500 Heart rate 74 /min Fuentes Amaral MD Work Phone: [facility] 04-03-2022 10:39-0500 Respiratory rate 16 /min Fuentes Amaral MD Work Phone: [facility] 04-03-2022 10:39-0500 SaO2% (BldA) [Mass fraction] 98 % Fuentes Amaral MD Work Phone: [facility] 04-03-2022 10:39-0500 Systolic blood pressure 147 mm[Hg] Fuentes Amaral MD Work Phone: [facility] 02-28-2022 08:30-0500 Blood Pressure Location LORAINE BURNHAM [facility] 02-28-2022 08:30-0500 Diastolic blood pressure 83 mm[Hg] LORAINE BURNHAM [facility] 02-28-2022 08:30-0500 Heart rate 74 /min LORAINE BURNHAM [facility] 02-28-2022 08:30-0500 Respiratory rate 16 /min LORAINE BURNHAM [facility] 02-28-2022 08:30-0500 Systolic blood pressure 121 mm[Hg] LORAINE BURNHAM [facility] 02-10-2022 14:07-0500 Body height 162.6 cm Fuentes Amaral MD Work Phone: [facility] 02-10-2022 14:07-0500 Body temperature 97.9 [degF] Fuentes Amaral MD Work Phone: [facility] 02-10-2022 14:07-0500 Body weight 98.25 kg Fuentes Amaral MD Work Phone: [facility] 02-10-2022 14:07-0500 Diastolic blood pressure 59 mm[Hg] Fuentes Amaral MD Work Phone: [facility] 02-10-2022 14:07-0500 Heart rate 97 /min Fuentes Amaral MD Work Phone: [facility] 02-10-2022 14:07-0500 Respiratory rate 16 /min Fuentes Amaral MD Work Phone: [facility] 02-10-2022 14:07-0500 SaO2% (BldA) [Mass fraction] 99 % Fuetnes Amaral MD Work Phone: [facility] 02-10-2022 14:07-0500 Systolic blood pressure 124 mm[Hg] Fuentes Amaral MD Work Phone: [facility] 2021 08:48-0500 Blood Pressure Location LORAINE BURNHAM [facility] 2021 08:48-0500 Diastolic blood pressure 77 mm[Hg] LORAINE BURNHAM [facility] 2021 08:48-0500 Heart rate 81 /min LORAINE BURNHAM [facility] 2021 08:48-0500 Systolic blood pressure 118 mm[Hg] LORAINE BURNHAM [facility] 11-18-2021 13:44-0400 Body height 162.6 cm Fuentes Amaral MD Work Phone: [facility] 11-18-2021 13:44-0400 Body temperature 97.81 [degF] Fuentes Amaral MD Work Phone: [facility] 11-18-2021 13:44-0400 Body weight 101.24 kg Fuentes Amaral MD Work Phone: [facility] 11-18-2021 13:44-0400 Diastolic blood pressure 73 mm[Hg] Fuentes Amaral MD Work Phone: [facility] 11-18-2021 13:44-0400 Heart rate 66 /min Fuentes Amaral MD Work Phone: [facility] 11-18-2021 13:44-0400 Respiratory rate 16 /min Fuentes Amaral MD Work Phone: [facility] 11-18-2021 13:44-0400 SaO2% (BldA) [Mass fraction] 100 % Fuentes Amaral MD Work Phone: [facility] 11-18-2021 13:44-0400 Systolic blood pressure 121 mm[Hg] Fuentes Amaral MD Work Phone: [facility] 11-03-2021 10:37-0400 Body height 162.6 cm Fuentes Amaral MD Work Phone: [facility] 11-03-2021 10:37-0400 Body temperature 97.59 [degF] Fuentes Amaral MD Work Phone: [facility] 11-03-2021 10:37-0400 Body weight 99.97 kg Fuentes Amaral MD Work Phone: [facility] 11-03-2021 10:37-0400 Diastolic blood pressure 63 mm[Hg] Fuentes Amaral MD Work Phone: [facility] 11-03-2021 10:37-0400 Heart rate 59 /min Fuentes Amaral MD Work Phone: [facility] 11-03-2021 10:37-0400 Respiratory rate 16 /min Fuentes Amaral MD Work Phone: [facility] 11-03-2021 10:37-0400 SaO2% (BldA) [Mass fraction] 99 % Fuentes Amaral MD Work Phone: [facility] 11-03-2021 10:37-0400 Systolic blood pressure 120 mm[Hg] Fuentes Amaral MD Work Phone: [facility] 09-27-2021 08:00-0400 Body height 162.6 cm Pulm Cortland Work Phone: [facility] 09-27-2021 08:00-0400 Body weight 99.79 kg Pulm [place] Work Phone: [facility] 09-21-2021 15:37-0400 Body height 160 cm Ruth Villaseñor MD Work Phone: [facility] 09-21-2021 15:37-0400 Body temperature 97.5 [degF] Ruth Villaseñor MD Work Phone: [facility] 09-21-2021 15:37-0400 Body weight 100.61 kg Ruth Villaseñor MD Work Phone: [facility] 09-21-2021 15:37-0400 Diastolic blood pressure 72 mm[Hg] Ruth Villaseñor MD Work Phone: [facility] 09-21-2021 15:37-0400 Heart rate 72 /min Ruth Villaseñor MD Work Phone: [facility] 09-21-2021 15:37-0400 SaO2% (BldA) [Mass fraction] 97 % Ruth Villaseñor MD Work Phone: [facility] 09-21-2021 15:37-0400 Systolic blood pressure 131 mm[Hg] Ruth Villaseñor MD Work Phone: [facility] 09-19-2021 13:59-0400 Body temperature 98.29 [degF] Landen Mahmood [employer] Work Phone: [facility] 09-19-2021 13:59-0400 Body weight 99.79 kg Landen Mahmood [employer]CTOR Work Phone: [facility] 09-19-2021 13:59-0400 Diastolic blood pressure 53 mm[Hg] Landen Mahmood [employer] IN[employer]CTOR Work Phone: [facility] 09-19-2021 13:59-0400 Heart rate 70 /min Landen Mahmood APRN.SAT INSTRUCTOR Work Phone: [facility] 09-19-2021 13:59-0400 Respiratory rate 18 /min Landen Mahmood [employer] IN[employer]CTOR Work Phone: [facility] 09-19-2021 13:59-0400 SaO2% (BldA) [Mass fraction] 98 % Landen Mahmood [employer] IN[employer]CTOR Work Phone: [facility] 09-19-2021 13:59-0400 Systolic blood pressure 128 mm[Hg] Landen Mahmood [employer] IN[employer]CTOR Work Phone: [facility] 09-05-2021 15:55-0400 Diastolic blood pressure 50 mm[Hg] Christine Abraham DO Work Phone: [facility] 09-05-2021 15:55-0400 Heart rate 103 /min Christine Abraham DO Work Phone: [facility] 09-05-2021 15:55-0400 Respiratory rate 28 /min Christine Abraham DO Work Phone: [facility] [employer] 09-05-2021 15:55-0400 SaO2% (BldA) [Mass fraction] 96 % Christine Abraham DO Work Phone: [facility] [employer] 09-05-2021 15:55-0400 Systolic blood pressure 115 mm[Hg] Christine Abraham DO Work Phone: [facility] [employer] 09-05-2021 13:29-0400 Body height 162.6 cm Christine Abraham DO Work Phone: [facility] [employer] 09-05-2021 13:29-0400 Body mass index (BMI) [Ratio] 37.25 kg/m2 Christine Abraham DO Work Phone: [facility] [employer] 09-05-2021 13:29-0400 Body temperature 98.2 [degF] Christine Perezbal DO Work Phone: [facility] 09-05-2021 13:29-0400 Body weight 98.43 kg Christine Abraham DO Work Phone: [facility] 08-15-2021 08:54-0400 Body height 162.6 cm Berlin Avila III, MD Work Phone: [facility] 08-15-2021 08:54-0400 Body weight 98.84 kg Berlin Avila III, MD Work Phone: [facility] 08-12-2021 10:00-0400 Body height 162.6 cm [employer] Work Phone: [facility] 08-12-2021 10:00-0400 Body weight 98 kg [employer] Work Phone: [facility] 08-12-2021 10:00-0400 Diastolic blood pressure 72 mm[Hg] [employer] Work Phone: [facility] 08-12-2021 10:00-0400 Heart rate 79 /min [employer] Work Phone: [facility] 08-12-2021 10:00-0400 Systolic blood pressure 108 mm[Hg] [employer] Work Phone: [facility] 07-25-2021 09:30-0400 Body height 162.6 cm Henny Rushing MD Work Phone: [facility] 07-25-2021 09:30-0400 Body temperature 97.2 [degF] Henny Rushing MD Work Phone: [facility] 07-25-2021 09:30-0400 Body weight 97.48 kg Henny Rushing MD Work Phone: [facility] 07-25-2021 09:30-0400 Diastolic blood pressure 62 mm[Hg] Henny Rushing MD Work Phone: [facility] 07-25-2021 09:30-0400 Heart rate 83 /min Henny Rushing MD Work Phone: [facility] 07-25-2021 09:30-0400 Respiratory rate 14 /min Henny Rushing MD Work Phone: [facility] 07-25-2021 09:30-0400 SaO2% (BldA) [Mass fraction] 99 % Henny Rushing MD Work Phone: [facility] 07-25-2021 09:30-0400 Systolic blood pressure 104 mm[Hg] Henny Rushing MD Work Phone: [facility] 07-22-2021 14:12-0400 Body height 162.6 cm Yan Bass MD Work Phone: [facility] 07-22-2021 14:12-0400 Body temperature 97.5 [degF] Yan Bass MD Work Phone: [facility] 07-22-2021 14:12-0400 Body weight 97.98 kg Yan Bass MD Work Phone: [facility] 07-22-2021 14:12-0400 Diastolic blood pressure 79 mm[Hg] Yan Bass MD Work Phone: [facility] 07-22-2021 14:12-0400 Heart rate 71 /min Yan Bass MD Work Phone: [facility] 07-22-2021 14:12-0400 Respiratory rate 16 /min Yan Bass MD Work Phone: [facility] 07-22-2021 14:12-0400 SaO2% (BldA) [Mass fraction] 97 % Yan Bass MD Work Phone: [facility] 07-22-2021 14:12-0400 Systolic blood pressure 129 mm[Hg] Yan Bass MD Work Phone: [facility] 07-21-2021 13:36-0400 Respiratory rate 20 /min Sai Perez MD Work Phone: [facility] 07-21-2021 13:36-0400 SaO2% (BldA) [Mass fraction] 100 % Sai Perez MD Work Phone: [facility] 07-21-2021 13:29-0400 Diastolic blood pressure 67 mm[Hg] Sai Perez MD Work Phone: [facility] 07-21-2021 13:29-0400 Heart rate 62 /min Sai Perez MD Work Phone: [facility] 07-21-2021 13:29-0400 Systolic blood pressure 130 mm[Hg] Sai Perez MD Work Phone: [facility] 07-14-2021 10:40-0400 Diastolic blood pressure 75 mm[Hg] Aldo Ann MD Work Phone: [facility] 07-14-2021 10:40-0400 Heart rate 74 /min Aldo Ann MD Work Phone: [facility] 07-14-2021 10:40-0400 SaO2% (BldA) [Mass fraction] 98 % Aldo Ann MD Work Phone: [facility] 07-14-2021 10:40-0400 Systolic blood pressure 128 mm[Hg] Aldo Ann MD Work Phone: [facility] 07-06-2021 12:39-0400 Body height 162.6 cm Tracee Mcintyre MD Work Phone: [facility] 07-06-2021 12:39-0400 Body weight 97.52 kg Tracee Mcintyre MD Work Phone: [facility] 07-06-2021 12:39-0400 Diastolic blood pressure 68 mm[Hg] Tracee Mcintyre MD Work Phone: [facility] 07-06-2021 12:39-0400 Heart rate 61 /min Tracee Mcintyre MD Work Phone: [facility] 07-06-2021 12:39-0400 Respiratory rate 16 /min Tracee Mcintyre MD Work Phone: [facility] 07-06-2021 12:39-0400 SaO2% (BldA) [Mass fraction] 99 % Tracee Mcintyre MD Work Phone: [facility] 07-06-2021 12:39-0400 Systolic blood pressure 111 mm[Hg] Tracee Mcintyre MD Work Phone: [facility] 07-01-2021 10:02-0400 Body height 162.6 cm Yan Bass MD Work Phone: [facility] 07-01-2021 10:02-0400 Body temperature 97.59 [degF] Yan Bass MD Work Phone: [facility] 07-01-2021 10:02-0400 Body weight 97.98 kg Yan Bass MD Work Phone: [facility] 07-01-2021 10:02-0400 Diastolic blood pressure 97 mm[Hg] Yna Bass MD Work Phone: [facility] 07-01-2021 10:02-0400 Heart rate 87 /min Yan Bass MD Work Phone: [facility] 07-01-2021 10:02-0400 Respiratory rate 16 /min Yan Bass MD Work Phone: [facility] 07-01-2021 10:02-0400 SaO2% (BldA) [Mass fraction] 99 % Yan Bass MD Work Phone: [facility] 07-01-2021 10:02-0400 Systolic blood pressure 138 mm[Hg] Yan Bass MD Work Phone: [facility] 06-27-2021 11:45-0400 Diastolic blood pressure 70 mm[Hg] Peter Knight APRN.SAT INSTRUCTOR Work Phone: [facility] 06-27-2021 11:45-0400 Heart rate 96 /min Peter Knight APRN.SAT INSTRUCTOR Work Phone: [facility] 06-27-2021 11:45-0400 Respiratory rate 20 /min Peter Knight APRN.SAT INSTRUCTOR Work Phone: [facility] 06-27-2021 11:45-0400 SaO2% (BldA) [Mass fraction] 99 % Peter Knight APRN.SAT INSTRUCTOR Work Phone: [facility] 06-27-2021 11:45-0400 Systolic blood pressure 147 mm[Hg] Peter Knight APRN.SAT INSTRUCTOR Work Phone: [facility] 06-27-2021 11:30-0400 Body temperature 98.1 [degF] Peter Knight APRN.SAT INSTRUCTOR Work Phone: [facility] 06-27-2021 10:53-0400 Body height 162.6 cm Peter Knight APRN.SAT INSTRUCTOR Work Phone: [facility] 06-27-2021 10:53-0400 Body weight 95.71 kg Peter Knight APRN.SAT INSTRUCTOR Work Phone: [facility] 06-21-2021 01:00-0400 Diastolic blood pressure 84 mm[Hg] Sean Andes DO Work Phone: [facility] 06-21-2021 01:00-0400 Heart rate 87 /min Sean Andes DO Work Phone: [facility] 06-21-2021 01:00-0400 Respiratory rate 21 /min Sean Andes DO Work Phone: [facility] 06-21-2021 01:00-0400 SaO2% (BldA) [Mass fraction] 90 % Sean Andes DO Work Phone: [facility] 06-21-2021 01:00-0400 Systolic blood pressure 121 mm[Hg] Sean Andes DO Work Phone: [facility] 06-21-2021 00:04-0400 Body temperature 98.6 [degF] Sean Andes DO Work Phone: [facility] 06-14-2021 09:07-0400 Body height 162.6 cm Jackelyn Marques MD Work Phone: [facility] 06-14-2021 09:07-0400 Body weight 96.66 kg Jackelyn Marques MD Work Phone: [facility] 06-14-2021 09:07-0400 Diastolic blood pressure 80 mm[Hg] Jackelyn Marques MD Work Phone: [facility] 06-14-2021 09:07-0400 Heart rate 71 /min Jackelyn Marques MD Work Phone: [facility] 06-14-2021 09:07-0400 Systolic blood pressure 126 mm[Hg] Jackelyn Marques MD Work Phone: [facility] 06-10-2021 09:45-0400 Body height 162.6 cm Yan Bass MD Work Phone: [facility] 06-10-2021 09:45-0400 Body temperature 97.39 [degF] Yan Bass MD Work Phone: [facility] 06-10-2021 09:45-0400 Body weight 97.61 kg Yan Bass MD Work Phone: [facility] 06-10-2021 09:45-0400 Diastolic blood pressure 50 mm[Hg] Yan Bass MD Work Phone: [facility] 06-10-2021 09:45-0400 Heart rate 64 /min Yan Bass MD Work Phone: [facility] 06-10-2021 09:45-0400 Respiratory rate 16 /min Yan Bass MD Work Phone: [facility] 06-10-2021 09:45-0400 SaO2% (BldA) [Mass fraction] 100 % Yan Bass MD Work Phone: [facility] 06-10-2021 09:45-0400 Systolic blood pressure 124 mm[Hg] Yan Bass MD Work Phone: [facility] 06-04-2021 19:43-0400 Diastolic blood pressure 49 mm[Hg] Brian Santana MD Work Phone: [facility] 06-04-2021 19:43-0400 Heart rate 69 /min Brian Santana MD Work Phone: [facility] 06-04-2021 19:43-0400 Respiratory rate 23 /min Brian Santana MD Work Phone: [facility] 06-04-2021 19:43-0400 SaO2% (BldA) [Mass fraction] 92 % Brian Santana MD Work Phone: [facility] 06-04-2021 19:43-0400 Systolic blood pressure 106 mm[Hg] Brian Santana MD Work Phone: [facility] 06-04-2021 16:26-0400 Body mass index (BMI) [Ratio] 36.22 kg/m2 Brian Santana MD Work Phone: [facility] 06-04-2021 16:26-0400 Body temperature 98.4 [degF] Brian Santana MD Work Phone: [facility] 06-04-2021 16:26-0400 Body weight 95.71 kg Brian Santana MD Work Phone: [facility] 05-20-2021 18:43-0400 Diastolic blood pressure 51 mm[Hg] Cas Dowell MD Work Phone: [employer] 05-20-2021 18:43-0400 Heart rate 53 /min Cas Dowell MD Work Phone: [employer] 05-20-2021 18:43-0400 Respiratory rate 16 /min [facility] 05-20-2021 18:43-0400 SaO2% (BldA) [Mass fraction] 96 % Cas Dowell MD Work Phone: [employer] 05-20-2021 18:43-0400 Systolic blood pressure 112 mm[Hg] Cas Dowell MD Work Phone: [employer] [facility] 05-20-2021 12:55-0400 Body height 162.6 cm Cas Dowell MD Work Phone: [facility] 05-20-2021 12:55-0400 Body mass index (BMI) [Ratio] 36.22 kg/m2 Cas Dowell MD Work Phone: [employer] 05-20-2021 12:55-0400 Body weight 95.71 kg Cas Dowell MD Work Phone: [employer] 04-16-2021 19:39-0500 Body temperature 97.39 [degF] Mike Stevenson MD [facility] 04-16-2021 19:39-0500 Diastolic blood pressure 89 mm[Hg] [facility] 04-16-2021 19:39-0500 Heart rate 55 /min Mike Stevenson MD [employer] 04-16-2021 19:39-0500 Respiratory rate 15 /min [facility] 04-16-2021 19:39-0500 SaO2% (BldA) [Mass fraction] 98 % Mike Stevenson MD [facility] 04-16-2021 19:39-0500 Systolic blood pressure 131 mm[Hg] Mike Stevenson MD [facility] 11-01-2020 17:24-0400 SaO2% (BldA) [Mass fraction] 94 % Araseli Barrett MD Work Phone: [employer] Work Phone: 11-01-2020 16:20-0400 Diastolic blood pressure 73 mm[Hg] Araseli Barrett MD Work Phone: [employer] Work Phone: 11-01-2020 16:20-0400 Systolic blood pressure 142 mm[Hg] Araseli Barrett MD Work Phone: [employer] Work Phone: 11-01-2020 15:48-0400 Body temperature 101.61 [degF] Araseli Barrett MD Work Phone: [employer] Work Phone: 11-01-2020 13:32-0400 Body mass index (BMI) [Ratio] 37.76 kg/m2 Araseli Barrett MD Work Phone: [employer] Work Phone: 11-01-2020 13:32-0400 Body weight 99.79 kg Araseli Barrett MD Work Phone: [employer] Work Phone: 11-01-2020 13:32-0400 Heart rate 91 /min Araseli Barrett MD Work Phone: [employer] Work Phone: 11-01-2020 13:32-0400 Respiratory rate 22 /min Araseli Barrett MD Work Phone: [employer] Work Phone: 06-13-2020 05:10-0400 Diastolic blood pressure 73 mm[Hg] Kody Cm MD Work Phone: [employer] Work Phone: 06-13-2020 05:10-0400 Systolic blood pressure 131 mm[Hg] Kody Cm MD Work Phone: [employer] Work Phone: 06-13-2020 05:09-0400 Body temperature 96.8 [degF] Kody Cm MD Work Phone: [employer] Work Phone: 06-13-2020 05:09-0400 Heart rate 74 /min Kody Cm MD Work Phone: [employer] Work Phone: 06-13-2020 05:09-0400 Respiratory rate 12 /min Kody Cm MD Work Phone: [employer] Work Phone: 06-13-2020 05:09-0400 SaO2% (BldA) [Mass fraction] 97 % Kody Cm MD Work Phone: [employer] Work Phone: Encounters Encounter Date Encounter Type Care Provider Facility Start: 05-02-2024 ambulatory Phillip Thomas MD Facility:[facility] Start: 05-01-2024 End: 05-01-2024 Julia Yao MD Work Phone: [facility] Comment on above: Hypothyroidism due t o Cesar's thyroiditis Start: 04-18-2024 End: 05-02-2024 Clinisync Result Encounter Generic External Data Provider [facility] External [facility] Unsolicited Start: 04-18-2024 End: 05-02-2024 Clinisync Result Encounter Generic External Data Provider [facility] External Department Unsolicited Start: 04-15-[address] [facility] Start: 03-30-2024 End: 03-31-2024 Julia Yao MD Work Phone: [facility] Comment on above: Hypothyroidism due t o Cesar's thyroiditis Start: 02-27-2024 End: 02-27-2024 Zaida Dowell MD Work Phone: [facility] Start: 02-27-2024 End: 02-27-2024 Zaida Dowell MD Work Phone: [facility] Start: 02-27-2024 End: 02-27-2024 Office outpatient visit 15 minutes Cas Dowell MD Work Phone: [facility] Comment on above: COVID-19 (Primary Dx ); Moderate persistent asthma without complication (CMS/HCC) Start: 02-27-2024 End: 02-27-2024 ambulatory CAS DOWELL Not Available Start: 02-22-2024 End: 02-22-2024 Refill Chayo Smith MD Work Phone: [facility] Start: 02-20-2024 End: 02-22-2024 Clinisync Result Encounter Generic External Data Provider [facility] External Department Unsolicited Start: 02-20-2024 End: 02-22-2024 Clinisync Result Encounter Generic External Data Provider [facility] External Department Unsolicited Start: 02-18-[address] [facility] Start: 02-11-2024 End: 02-11-2024 Bamboo flowsheet Cas Dowell MD Work Phone: [facility] Start: 02-11-2024 End: 02-11-2024 Bamboo flowsheet Cas Dowell MD Work Phone: [facility] Start: 02-11-2024 End: 02-11-2024 Clinisync Result Encounter Cas Dowell MD Work Phone: [facility] External [facility] Unsolicited Start: 02-11-2024 End: 02-11-2024 ambulatory CAS DOWELL Not Available Start: 02-11-2024 End: 02-11-2024 Office outpatient visit 25 minutes Cas Dowell MD Work Phone: [facility] Comment on above: Type 2 diabetes johanna itus with hyperglycemia, without long-term current use of insulin (CMS/HCC) (Primary Dx); Autonomic dysfunction; Chronic [id number] syndrome; Moderate persistent asthma without complication (CMS/HCC); Chronic allergic rhinitis due to pollen; Edema of both legs; MDD (major depressive disorder), recurrent episode, mild (HCC) (CMS/HCC); Class 2 severe obesity due to excess calories with serious comorbidity and body mass index (BMI) of 37.0 to 37.9 in adult (CMS/HCC); Gastroesophageal reflux disease without esophagitis Start: 02-05-2024 End: 02-05-2024 ambulatory AKILA YAO [facility] Start: 01-23-[address] [facility] Start: 01-18-[address] [facility] Start: 01-07-[address] 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; Cervicalgia; Hypersomnia with sleep apnea; Memory difficulties; KATELIN (obstructive sleep apnea); Trapezius muscle spasm; Word finding difficulty Start: 01-02-2024 End: 01-02-2024 ambulatory [facility] Start: 01-01-2024 End: 01-01-2024 ambulatory Phillip Thomas MD Facility:[facility] Start: 12-27-2023 End: 12-27-2023 ambulatory CAS DOWELL [facility] Start: 12-27-2023 End: 12-27-2023 Subsequent hospital visit by physician Cas Dowell MD Work Phone: [facility] Start: 12-27-2023 End: 12-27-2023 Clinisync Result Encounter Generic External Data Provider [facility] External Department Unsolicited Start: 12-27-2023 End: 12-27-2023 Clinisync Result Encounter Generic External Data Provider [facility] External Department Unsolicited Start: 12-19-2023 ambulatory ABIEL HUTCHINSONCKO [facility] Start: 12-19-2023 End: 12-19-2023 ambulatory NABOR Bowden [facility] Start: 12-19-2023 End: 12-19-2023 Subsequent hospital visit by physician [facility] Pulmonary Function Room [facility] P[facility] Comment on above: Moderate asthma with out complication, unspecified whether persistent Start: 12-06-2023 End: 12-06-2023 Refill Marni Lionel PIER HAND-SAT INSTRUCTOR Work Phone: [facility] Start: 11-30-2023 End: 11-30-2023 ambulatory Phillip Thomas MD Facility:[facility] Start: 11-26-2023 End: 11-26-2023 Clinisync Result Encounter Generic External Data Provider [facility] External Department Unsolicited Start: 11-26-2023 End: 11-26-2023 Clinisync Result Encounter Generic External Data Provider [facility] External Department Unsolicited Start: 11-22-2023 End: 11-22-2023 Office outpatient visit 15 minutes Akila Yao MD Work Phone: [facility] Comment on above: 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) Start: 11-22-2023 End: 11-22-2023 ambulatory AKILA YAO [facility] Start: 11-20-2023 End: 11-20-2023 Bamboo flowsheet Rubens Glenroy DO Work Phone: [facility] Start: 11-20-2023 End: 11-27-2023 Bamboo flowsheet Rubens Glenroy DO Work Phone: [facility] Start: 11-20-2023 End: 11-27-2023 Clinisync Result Encounter Generic External Data Provider [facility] External Department Unsolicited Start: 11-20-2023 End: 11-20-2023 Patient encounter procedure Rubens Glenroy DO Work Phone: [facility] Work Phone: Start: 11-20-2023 End: 11-20-2023 Periodic preventive med est patient 18-39 yrs Rubens Tim DO Work Phone: [facility] Comment on above: PCOS (polycystic ova amarilis syndrome) (Primary Dx); Well woman exam with routine gynecological exam; Hormone disorder Start: 11-20-2023 End: 11-20-2023 ambulatory RUBENS TIM Not Available Start: 11-19-[address] [facility] Start: 11-07-2023 End: 11-07-2023 Bamboo flowsheet Christy Painting MD Work Phone: [facility] Start: 11-07-2023 End: 11-07-2023 Bamboo flowshansa Painting MD Work Phone: [facility] [...] Not Available Start: 11-06-2023 ambulatory STEPHON CRONIN [facility] Start: 10-30-2023 End: 10-31-2023 Julia Flowers PIER HAND-SAT INSTRUCTOR Work Phone: [facility] Start: 10-23-2023 End: 10-23-2023 Orders Only Cas Dowell MD Work Phone: [facility] Start: 10-15-[address] [facility] Start: 10-10-2023 End: 10-10-2023 Bamboo flowsheet Cas Dowell MD Work Phone: [facility] Start: 10-10-2023 End: 10-10-2023 Bamboo flowsheet Cas Dowell MD Work Phone: [facility] Start: 10-10-2023 End: 10-10-2023 ambulatory MACRINA SELFMagalis [facility] Start: 10-10-2023 End: 10-10-2023 Office outpatient visit 25 minutes Cas Dowell MD Work Phone: [facility] Comment on above: Type 2 diabetes johanna itus with hyperglycemia, without long-term current use of insulin (CMS/HCC) (Primary Dx); Chronic [id number] syndrome; Moderate persistent asthma without complication (CMS/HCC); Chronic allergic rhinitis due to pollen; Edema of both legs Start: 10-10-2023 End: 10-10-2023 ambulatory CAS DOWELL Not Available Start: 10-05-2023 [facility] Start: 10-02-2023 End: 10-02-2023 ambulatory Selma X Ormiguelina Facility:[facility] Start: 10-02-2023 End: 10-02-2023 Patient encounter procedure Selma X Orzech [facility] Start: 10-01-2023 End: 10-01-2023 Clinisync Result Encounter Generic External Data Provider [facility] External Department Unsolicited Start: 10-01-2023 End: 10-01-2023 Clinisync Result Encounter Generic External Data Provider [facility] External Department Unsolicited Start: 10-01-2023 End: 10-01-2023 Office outpatient visit 15 minutes Fuentes Amaral MD Work Phone: Hematology/Oncology Comment on above: Qualitative platelet disorder (HCC) (Primary Dx); POTS (postural orthostatic tachycardia syndrome) Start: 10-01-2023 End: 10-01-2023 ambulatory FUENTES AMARAL Facility:[facility] Start: 09-26-2023 End: 09-26-2023 Bamboo flowsheet Cas Dowell MD Work Phone: [facility] Start: 09-26-2023 End: 09-26-2023 Bamboo flowsheet Cas Dowell MD Work Phone: [facility] Start: 09-26-2023 End: 09-26-2023 Office outpatient visit 15 minutes Cas Dowell MD Work Phone: [facility] Comment on above: Allergic reaction, s ubsequent encounter (Primary Dx); Body mass index (BMI) 38.0-38.9, adult Start: 09-26-2023 End: 09-26-2023 ambulatory CAS DOWELL Not Available Start: 09-24-2023 End: 09-24-2023 Refill Akila Yao MD Work Phone: [facility] Comment on above: Hypothyroidism due t o Cesar's thyroiditis Start: 09-19-2023 End: 09-19-2023 ambulatory RUBENS GLENROY Not Available Start: 09-08-2023 End: 09-10-2023 Refill Terri Smith MD Work Phone: [facility] Comment on above: Chronic sinusitis Start: 09-05-2023 ambulatory ABIEL HUTCHINSONCKO [facility] Start: 08-22-2023 End: 08-22-2023 ambulatory RUBENS GLENROY Not Available Start: 08-07-2023 End: 08-07-2023 Refill Marni Flowers PIER [employer]-SAT INSTRUCTOR Work Phone: [facility] Start: 07-30-2023 ambulatory STEPHON CRONIN [facility] Start: 07-24-2023 End: 07-24-2023 Refill Marni Flowers PIER HAND-SAT INSTRUCTOR Work Phone: [facility] Start: 07-10-2023 End: 07-10-2023 ambulatory JODI MAZARIEGOS Not Available Start: 07-05-2023 End: 07-05-2023 Office outpatient visit 25 minutes Marni Flowers PIER HAND-SAT INSTRUCTOR Work Phone: [facility] Comment on above: Migraine without aur a and without status migrainosus, not intractable (Primary Dx); 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; Word finding difficulty; Autonomic dysfunction; Cervicalgia Start: 07-05-2023 End: 07-05-2023 ambulatory MARNI FLOWERS [facility] Start: 05-08-2023 End: 05-08-2023 Office outpatient visit 15 minutes Sarah Best PIER HAND-SAT INSTRUCTOR Work Phone: [facility] Comment on above: 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) Start: 05-08-2023 End: 05-08-2023 ambulatory SARAH BEST [facility] Start: 04-09-2023 End: 04-09-2023 ambulatory CAS DOWELL Not Available Start: 03-12-2023 Orders Only Cas Horner Work Phone: [facility] Comment on above: Moderate persistent asthma without complication (CMS/HCC) (Primary Dx) Start: 03-04-2023 Orders Only Marni BUSTOS RN-SAT INSTRUCTOR Work Phone: [facility] Start: 02-13-2023 End: 02-13-2023 ambulatory Tesfaye MASON Facility:[facility] Start: 02-04-2023 Refill Marni BUSTOS RN-SAT INSTRUCTOR Work Phone: [facility] Start: 01-31-2023 End: 01-31-2023 ambulatory Tesfaye R MARLON Facility:CD:[id number] Start: 01-04-2023 End: 01-04-2023 ambulatory CAS DOWELL Facility:[facility] Start: 12-19-2022 [facility] Start: 12-18-2022 ambulatory [facility] Facility: [facility] Start: 10-02-2022 End: 10-02-2022 Office outpatient visit 15 minutes Fuentes Amaral MD Work Phone: Hematology/Oncology Comment on above: Qualitative platelet disorder (HCC) (Primary Dx); Bleeding disorder (HCC); Coagulopathy (HCC) Start: 09-05-2022 End: 09-05-2022 Patient encounter procedure LORAINE Razo TEJ [facility] Start: 06-15-2022 End: 06-16-[address] CAS DOWELL Facility:[facility] Start: 06-05-2022 End: 06-06-[address] DOCTOR CONN Facility:[facility] Start: 05-03-2022 Telephone encounter Meena peter MD Work Phone: Neurology Comment on above: PAP Therapy Follow U p (DOWNLOAD) Start: 04-26-2022 End: 04-26-2022 ambulatory Bhargavi Ramesh PA-C Work Phone: Neurology Comment on above: Migraine without aur a and without status migrainosus, not intractable (Primary Dx) Start: 04-26-2022 End: 04-26-2022 Telemedicine consultation with patient Bhargavi Gadiel HEREDIA Work Phone: [facility] Start: 04-17-2022 End: 04-18-2022 [facility] Fuentes Amaral MD Work Phone: [...] Start: 03-29-2022 End: 03-30-2022 ambulatory FUENTES AMARAL [facility] Start: 03-21-2022 Telephone encounter Manda León RN Hematology/Oncology Comment on above: Orders; Appointment Start: 03-16-2022 End: 03-17-2022 ambulatory FUENTES AMARAL [facility] Start: 02-28-2022 End: 02-28-2022 Patient encounter procedure LORAINE BURNHAM [facility] Start: 02-27-2022 Patient Update Tesfaye Whitman [facility] Comment on above: Patient Update (Medi cation Refill Consent) Start: 02-24-2022 Telephone encounter Bhargavi donaldson PA-C Work Phone: Neurology Comment on above: Referral Request (PA for Ajovy) Start: 02-22-2022 ambulatory Fuentes almonte MD Work Phone: Hematology/Oncology Comment on above: Platelet electrophor esis lab Start: 02-17-2022 Telephone encounter Manda León RN Hematology/Oncology Comment on above: Orders; Question Start: 02-17-2022 End: 02-17-2022 Subsequent hospital visit by physician Cas Dowell MD Work Phone: [facility] Start: 02-16-2022 Telephone encounter Manda León RN Hematology/Oncology Comment on above: Orders Start: 02-15-2022 End: 03-15-2022 ambulatory SHAIKH Janet JACOBSON Facility: Start: 02-13-2022 End: 02-13-2022 Patient encounter procedure Meena Grissom MD Work Phone: Neurology Comment on above: No-show for appointm ent (Primary Dx) Start: 02-13-2022 End: 02-13-2022 Telemedicine consultation with patient Meena Grissom MD Work Phone: [facility] Start: 02-10-2022 End: 02-10-2022 Visit (SP) Office Fuentes Amaral MD Work Phone: Hematology/Oncology Comment on above: Qualitative platelet disorder (HCC) (Primary Dx); Bleeding disorder (HCC) Start: 02-01-2022 Telephone encounter [facility] Work Phone: Neurology Comment on above: Appointment (Downloa d Pap Therapy Follow Up-) Start: 01-23-2022 End: 01-23-2022 Patient encounter procedure Marcell Olivia ROMEO [facility] Start: 01-16-2022 End: 01-16-2022 ambulatory Bhargavi NANCEC Work Phone: Neurology Comment on above: Migraine without aur a and without status migrainosus, not intractable (Primary Dx) Start: 01-16-2022 End: 01-16-2022 Telemedicine consultation with patient Bhargavi Gadiel HEREDIA Work Phone: [facility] Start: 12-24-2021 End: 12-25-[address] BELÉN ANDRADE Facility:[facility] Start: 2021 End: 2021 Patient encounter procedure LORAINE BURNHAM [facility] Start: 12-20-2021 Telephone encounter Dayanna olvera [facility] Work Phone: [facility] Comment on above: Results Start: 12-17-2021 Encounter for genera l adult medical examination without abnormal findings DR CAS DOWELL 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) KATELIN on CPAP [...] with patient Meena Grissom MD Work Phone: [facility] Start: 11-15-2021 Telephone encounter [facility] Work Phone: Neurology Comment on above: Appointment (Downloa d Pap Therapy Follow UP) Start: 11-14-2021 End: 11-14-2021 ambulatory DR BELÉN ANDRADE Facility: Start: 11-10-2021 End: 11-11-2021 [facility] Fuentes Amaral MD Work Phone: [...] with patient Henny Rushing MD Work Phone: [facility] Start: 10-20-2021 End: 10-20-2021 ambulatory Micheal Perez MD Work Phone: Cardiology Comment on above: Palpitations (Primar y Dx); Symptomatic bradycardia; Orthostatic lightheadedness; Diffuse pain; Blood pressure instability; Decreased activity tolerance; Orthostatic intolerance; Moderate persistent asthma without complication; Physical deconditioning Start: 10-20-2021 End: 10-20-2021 Telemedicine consultation with patient Micheal Perez MD Work Phone: [facility] Start: 10-19-2021 End: 10-19-2021 ambulatory Bhargavi Ramesh PA-C Work Phone: Neurology Comment on above: Chronic migraine wit hout aura, intractable, without status migrainosus (Primary Dx) Start: 10-19-2021 End: 10-19-2021 Telemedicine consultation with patient Bhargavi Ramesh PA-C Work Phone: [facility] Start: 10-19-2021 End: 10-20-[address] HUSAM KIM Facility: Start: 10-14-2021 End: 10-14-2021 ambulatory Judith Valdes PSYD Work Phone: [facility] Comment on above: Depression, unspecif ied depression type (Primary Dx); Anxiety; Abnormal involuntary movement Start: 10-14-2021 End: 10-14-2021 Telemedicine consultation with patient Judith Valdes PSYD Work Phone: [facility] Start: 10-12-2021 End: 10-12-2021 ambulatory Ruth Villaseñor MD Work Phone: Rheumatology Comment on above: Malaise and fatigue (Primary Dx); Lymphadenopathy Start: 10-12-2021 End: 10-12-2021 Telemedicine consultation with patient Ruth Villaseñor MD Work Phone: [facility] Start: 09-30-2021 ambulatory Landen Mahmood APR N.SAT INSTRUCTOR Work Phone: Pulmonary Medicine Comment on above: Breast testing Start: 09-30-2021 End: 09-30-2021 Subsequent hospital visit by physician Xr Chest Main A21 Radiology Comment on above: History of COVID-19 [Z86.16] Start: 09-27-2021 End: 09-27-2021 ambulatory Pulm [place] Work Phone: Pulmonary Lab Comment on above: Spirometry Start: 09-27-2021 End: 09-27-2021 Patient encounter procedure Pulm Lab [place] Work Phone: [facility] Start: 09-23-2021 ambulatory Landen Mahmood APR N.SAT INSTRUCTOR Work Phone: Pulmonary Medicine Comment on above: Breathing test Start: 09-22-2021 End: 09-23-2021 ambulatory Landen Mahmood APRN.SAT INSTRUCTOR Work Phone: Pulmonary Medicine Comment on above: Ct scan results Start: 09-22-2021 Telephone encounter Landen Mahmood APRN.SAT INSTRUCTOR Work Phone: Pulmonary Medicine Comment on above: Results Start: 09-21-2021 End: 09-21-2021 Patient encounter procedure Ruth Villaseñor MD Work Phone: Rheumatology Comment on above: Bone pain (Primary D x); Malaise and fatigue; Lymphadenopathy Start: 09-21-2021 End: 09-22-[address] CAS DOWELL Facility:H1 Start: 09-19-2021 End: 09-19-2021 Patient encounter procedure Landen Mahmood APRN.SAT INSTRUCTOR Work Phone: Pulmonary Medicine Comment on above: 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); History of COVID-19; SOB (shortness of breath); Chronic cough; Chest discomfort; Palpitation; CAVANAUGH (dyspnea on exertion); Dizziness; Near syncope; Night sweats; Orthopnea; Anxiety; Myalgia; Pain in joint, multiple sites; Mass of left axilla Start: 09-19-2021 Telephone encounter Landen Mahmood APRN.MACY Work Phone: Pulmonary Medicine Comment on above: 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 [employer]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 - [employer] ther Start: 09-16-2021 End: 09-16-2021 ambulatory Judith Valdes PSYD Work Phone: [facility] Comment on above: Depression, unspecif ied depression type (Primary Dx); Anxiety; Abnormal involuntary movement Start: 09-16-2021 End: 09-16-2021 Telemedicine consultation with patient Judith Valdes PSYD Work Phone: [facility] Start: 09-05-2021 End: 09-05-2021 Emergency department patient visit Christine Abraham DO Work Phone: [facility] Comment on above: Allergic reaction, i nitial encounter (Primary Dx) Start: 08-30-2021 End: 08-30-2021 [facility] Ayaka Bright MD Work Phone: [facility] Comment on above: Long COVID (Primary Dx); Diffuse pain; Decreased activity tolerance; PTSD (post-traumatic stress disorder) CT scan results sent Start: 08-23-2021 Telephone encounter Shelbie Umaña PA-C Work Phone: General Surgery Comment on above: Results - Ct Start: 08-23-2021 End: 08-23-2021 ambulatory Peter Knight APRN.SAT INSTRUCTOR Work Phone: Neurology Comment on above: Diffuse pain (Primar y Dx); Decreased activity tolerance; Physical deconditioning; Orthostatic intolerance Start: 08-23-2021 End: 08-23-2021 Telemedicine consultation with patient Peter Knight APRN.SAT INSTRUCTOR Work Phone: [facility] Start: 08-19-2021 End: 08-19-2021 Subsequent hospital visit by physician Transportation [address] Radiology Comment on above: Chronic RLQ pain [R1 0.31, G89.29] Start: 08-18-2021 ambulatory Mike Zayas MD Work Phone: Kidney Medicine [facility] Start: 08-18-2021 Patient encounter procedure Mike Zayas MD Work Phone: [facility] Start: 08-17-2021 ambulatory [facility] Facility: [facility] Start: 08-17-2021 End: 08-17-2021 Subsequent hospital visit by physician [facility] Echocardiology Testing Comment on above: Symptomatic bradycar aziza [R00.1] Start: 08-16-2021 Orders Only Berlin Avila MD Work Phone: Radiology Comment on above: Chronic RLQ pain (Pr imary Dx) Start: 08-15-2021 Telephone encounter Jenni cassidy RN Work Phone: [facility] Home Delivery Comment on above: Insurance Authorizat ion (Emgality 120MG/ML syringes (migraine)) Start: 08-15-2021 End: 08-15-2021 Patient encounter procedure Berlin Avila MD Work Phone: General Surgery Comment on above: Chronic RLQ pain (Pr imary Dx); Diastasis recti Start: 08-12-2021 End: 08-12-2021 ambulatory Daniela Stewart PT Work Phone: [facility] Comment on above: Intractable chronic migraine without aura and without status migrainosus; Abnormal involuntary movement Start: 08-12-2021 End: 08-12-2021 Patient encounter procedure [employer] Work Phone: Kidney Medicine [facility] [place] Comment on above: White coat syndrome with hypertension (Primary Dx) Start: 08-05-2021 End: 08-05-2021 ambulatory Bhargavi Ramesh PA-C Work Phone: Neurology Comment on above: Chronic migraine wit hout aura, intractable, without status migrainosus (Primary Dx) Start: 08-05-2021 End: 08-05-2021 Telemedicine consultation with patient Bhargavi Ramesh PA-C Work Phone: [facility] Start: 08-03-2021 End: 08-03-[address] RUBENS TIM . Facility: Start: 07-29-2021 End: 07-29-2021 ambulatory Judith Valdes PSYD Work Phone: [facility] Comment on above: Depression, unspecif ied depression type (Primary Dx); Anxiety; Intractable chronic migraine without aura and without status migrainosus; Abnormal involuntary movement Start: 07-29-2021 End: 07-29-2021 Telemedicine consultation with patient Judith Valdes PSYD Work Phone: [facility] Start: 07-25-2021 End: 07-25-2021 Patient [...] endocr ine disorder Start: 07-15-2021 End: 07-15-2021 [facility] Work Phone: [facility] Comment on above: Bleeding disorder (H CC) (Primary Dx); Coagulopathy (HCC); Qualitative platelet disorder (HCC) Start: 07-14-2021 End: 07-14-2021 Patient encounter procedure Aldo Ann MD Work Phone: Otolaryngology Comment on above: Allergy, initial enc ounter (Primary Dx); Headaches Start: 07-06-2021 End: 07-06-2021 Patient encounter procedure Tracee Mcintyre MD Work Phone: [facility] Comment on above: Intractable chronic migraine without [...] End: 06-27-2021 Patient encounter procedure Peter Knight APRN.SAT INSTRUCTOR Work Phone: Neurology Comment on above: Worsening headaches (Primary Dx); Maxillary sinus cyst; Muscle spasms of lower extremity, unspecified laterality; Akathisia; Blurred vision; Chorea Start: 06-24-2021 End: 06-25-[address] VIKASH BECKHAM . Facility: Start: 06-22-2021 ambulatory Peter Knight APRN.SAT INSTRUCTOR Work Phone: Neurology Comment on above: Legs Start: 06-20-2021 End: 06-21-2021 Emergency department patient visit Sean Moses DO Work Phone: [facility] Comment on above: Spasm of muscle (Hannah bhumika Dx); Acute nonspecific chest pain with low risk of coronary artery disease Start: 06-16-2021 Telephone encounter Yan Bass MD Work Phone: Hematology/Oncology Comment on above: Results Start: 06-16-2021 ambulatory PETER KNIGHT Facility :[facility] Start: 06-14-2021 Telephone encounter Jackelyn Lewis i, MD Work Phone: Endocrinology Comment on above: Orders Start: 06-14-2021 End: 06-14-2021 Patient encounter procedure aJckelyn Marques MD Work Phone: Endocrinology Comment on above: Screening for endocr ine disorder (Primary Dx); Primary hypothyroidism Start: 06-14-2021 End: 06-14-2021 ambulatory Autonomic Main Neurology Comment on above: Assessment Start: 06-14-2021 End: 06-14-2021 Patient encounter procedure Autonomic 2 Neur Main [facility] Start: 06-13-2021 ambulatory Peter Knight PIER HAND.SAT INSTRUCTOR Work Phone: Neurology Comment on above: Blood results Start: 06-10-2021 End: 06-10-2021 ambulatory Yan Bass MD Work Phone: Hematology/Oncology Comment on above: Coagulopathy (HCC) ( Primary Dx) Start: 06-10-2021 End: 06-10-2021 Patient encounter procedure Yan Bass MD Work Phone: [facility] Start: 06-08-2021 Chart abstracting Yan tran MD Work Phone: Hematology/Oncology Start: 06-04-2021 End: 06-04-2021 Emergency department patient visit Brian Santana MD Work Phone: [facility] Comment on above: Urticaria (Primary D x); Moderate persistent asthma with exacerbation Start: 05-31-2021 Telephone encounter Peter bermeo APRN.SAT INSTRUCTOR Work Phone: Neurology Comment on above: Received Outside Med ical Records ([facility]) Start: 05-20-2021 End: 05-20-2021 Emergency department patient visit Cas Dowlel MD Work Phone: [facility] Comment on above: Chest pain, unspecif ied type (Primary Dx); Abdominal pain, acute, right lower quadrant Start: 04-16-2021 End: 04-16-2021 Emergency department patient visit Mike Stevenson MD [facility] Comment on above: Intractable nausea a nd vomiting (Primary Dx); Hydrosalpinx; Left ovarian cyst Start: 03-07-2021 End: 03-08-2021 ambulatory CAS DOWELL [facility] Start: 03-06-2021 End: 03-07-2021 ambulatory CAS DOWELL [facility] Start: 11-01-2020 End: 11-01-2020 Emergency department patient visit Araseli Barrett MD Work Phone: [facility] Comment on above: COVID-19 (Primary Dx ) Start: 06-13-2020 End: 06-13-2020 Emergency department patient visit Kody Cm MD Work Phone: [facility] Comment on above: Strain of lumbar reg ion, initial encounter (Primary Dx) Procedures Date Procedure Procedure Detail Performing Clinician Start: 04-18-2024 ALLERGENS W/COMP RFLX AREA 5 Generic Ext ernal Data Provider Start: 02-20-2024 BLOOD CULTURE 2 Generic External Data Provider Start: 02-20-2024 BLOOD CULTURE 1 Generic External Data Provider Start: 02-11-2024 MLR HEMOGLOBIN A1C Cas Dowell MD Work Phone: Start: 12-27-2023 Antibody rubella Ivory Ordaz PIER HAND - SAT INSTRUCTOR Work Phone: Start: 12-27-2023 MHPT RUBELLA AB, IGG Generic External Data Provider Start: 12-19-2023 Brncdilat rspse spmtry pre&post-brncdilat admn Nabor Yancey PIER HAND - SAT INSTRUCTOR Work Phone: Start: 11-26-2023 ALL THYROXINE (T4) FREE Generic External Data Provider Start: 11-20-2023 IGP,APTIMA HPV,AGE GDLN Rubens Glenroy DO Work Phone: Start: 10-01-2023 [facility] CBC W AUTO DIFF BLD Generic External Data Provider Start: 08-31-2023 Mammography Generic Provider Start: 05-08-2023 Follow-up visit Follow-up SARAH BEST Start: 01-31-2023 Esophagogastroduodenoscopy Selma Rubylia Start: 01-04-2023 Adult depression screening assessment Marnimegan lFowers PIER HAND-SAT INSTRUCTOR Work Phone: Start: 01-01-2023 Hemoglobin glycosylated a1c [...] Radiologic exam chest 2 views Landen Mahmood APRN.SAT INSTRUCTOR Work Phone: Start: 09-27-2021 End: 09-27-2021 Co diffusing capacity Landen Mahmood APRN.SAT INSTRUCTOR Work Phone: Start: 09-14-2021 Adult depression screening assessment Judith Valdes PSYD Work Phone: Start: 08-19-2021 Us pelvic nonobstetric image dcmtn limited/f/u Berlin Avila MD Work Phone: Start: 08-17-2021 Echo tthrc r-t 2d w/wom-mode compl spec&colr d Christy Santos MD Work Phone: Start: 08-17-2021 LVEF ECHO Sai Perez MD Work Phone: Start: 07-29-2021 Adult depression screening assessment [facility] Work Phone: Start: 07-18-2021 Adrenocorticotropic hormone acth Perry Marques MD Work Phone: Start: 07-01-2021 Adrenocorticotropic hormone acth Perry Marques MD Work Phone: Start: 06-29-2021 Adult depression screening assessment Yan Bass MD Work Phone: Start: 06-21-2021 Radiologic exam chest single view [employer] DO Work Phone: Start: 06-21-2021 Basic metabolic panel calcium total [employer] DO Work Phone: Start: 06-21-2021 Ecg routine ecg w/least 12 lds w/i&r [employer] DO Work Phone: Start: 06-20-2021 Adult depression screening assessment Peter Knight PIER HAND.SAT INSTRUCTOR Work Phone: Start: 06-04-2021 RESPIRATORY CARE EVALUATION ONLY Brian Santana MD Work Phone: Start: 05-20-2021 Assay of troponin quantitative Shanna Rivas PIER HAND - SAT INSTRUCTOR Work Phone: Start: 05-20-2021 Ct abdomen & pelvis w/o contrast material Shanna Rivas PIER HAND - SAT INSTRUCTOR Work Phone: Start: 05-20-2021 Drug screen class list a Shanna anguiano PIER HAND - SAT INSTRUCTOR Work Phone: Start: 05-20-2021 Urinalysis microscopic only Shanna verduzco PIER HAND - SAT INSTRUCTOR Work Phone: Start: 05-20-2021 Urnls dip stick/tablet rgnt auto w/o microscopy Shanna Rivas PIER HAND - SAT INSTRUCTOR Work Phone: Start: 05-20-2021 Radiologic exam chest single view Adryan Evelyn PIER HAND - SAT INSTRUCTOR Work Phone: Start: 05-20-2021 Assay of lactate Shanna Bishop Evelyn PIER HAND - SAT INSTRUCTOR Work Phone: Start: 05-20-2021 BASIC METABOLIC PANEL W/ REFLEX TO MG FOR LOW K Shanna Bishop Evelyn PIER HAND - SAT INSTRUCTOR Work Phone: Start: 05-20-2021 C-reactive protein Shanna Bishop Evelyn PIER HAND - SAT INSTRUCTOR Work Phone: Start: 05-20-2021 Ecg routine ecg w/least 12 lds w/i&r Araseli Barrett MD Work Phone: Start: 05-19-2021 Adult depression screening assessment Peter Knight APRN.SAT INSTRUCTOR Work Phone: Start: 04-16-2021 Ct abdomen & pelvis w/o contrast material Shanna Bishop Evelyn PIER HAND - SAT INSTRUCTOR Work Phone: Start: 04-16-2021 Radiologic exam chest single view Adryan Evelyn PIER HAND - SAT INSTRUCTOR Work Phone: Start: 04-16-2021 Ecg routine ecg w/least 12 lds w/i&r Shanna Bishop Evelyn PIER HAND - SAT INSTRUCTOR Work Phone: Start: 04-16-2021 Urinalysis microscopic only Shanna Peña dax PIER HAND - SAT INSTRUCTOR Work Phone: Start: 04-16-2021 Urine test visual color cmprsn meths Shanna Bishop Evelyn PIER HAND - SAT INSTRUCTOR Work Phone: Start: 04-16-2021 Assay of lipase Shanna Bishop Evelyn PIER HAND - SAT INSTRUCTOR Work Phone: Start: 04-16-2021 BASIC METABOLIC PANEL W/ REFLEX TO MG FOR LOW K Shanna Bishop Evelyn PIER HAND - SAT INSTRUCTOR Work Phone: Start: 04-16-2021 Hepatic function panel Shanna Bishop Evelyn PIER HAND - SAT INSTRUCTOR Work Phone: Start: 02-10-2021 H/O: hysterectomy History of hysterectomy Cas Dowell MD Work Phone: Start: 11-01-2020 Ecg routine ecg [...] TEO RRY Appendectomy LORAINE BURNHAM section LORAINE TEO RRY Colonoscopy Selma Orzech Endometrial ablation Selma Orzech Esophagogastroduodenoscopy A urora Orzech Insertion of cardiac monitoring implant using fluoroscopic guidance Selma Orzech Laparoscopic lysis of adhesions Selma Orzech Ligation of fallopian tube J ENNIJEANETTE COMBSRY Nasal septoplasty LORAINE Olivia ERRY Tympanostomy LORAINE BURNHAM Plan of Treatment Date Care Activity Detail Author Start: 12-17-2025 Glaucoma screening Diabetes: Retinopathy Screening [facility] Start: 01-01-2025 Adult BMI Screening Adult BMI Screening [facility] Start: 01-01-2025 Tobacco Screening Tobacco Screening [facility] Start: 12-01-2024 End: 12-01-2024 Patient encounter procedure 12/01/2024 10:40 AM EDT Office Visit [facility] [address] [place] [phone] Rubens Tim, DO [address] [place] [address] [facility] Start: 11-27-2024 End: 11-27-2024 Patient encounter procedure 11/27/2024 10:00 AM EDT Office Visit [facility] [address] [facility] [place] [phone] Rubens Tim, DO [address] [place] [address] [facility] Start: 11-24-2024 End: 11-24-2024 Patient encounter procedure [facility] Start: 11-21-2024 Adult BMI Screening Adult BMI Screening [facility] Start: 11-21-2024 Tobacco Screening Tobacco Screening [facility] Start: 09-30-2024 End: 09-30-2024 CBC W Auto Differential panel - Blood COMPLETE BLOOD COUNT AND DIFFERENTIAL Lab Routine Qualitative platelet disorder (HCC) Expected: 09/30/2024 (Approximate), Expires: 09/30/2024 [facility] Work Phone: Comment on above: Expected: 09/30/2024 (Approximate), Expi res: 09/30/2024 Start: 09-30-2024 End: 09-30-2024 Comprehensive metabolic 2000 panel - Serum or Plasma COMPREHENSIVE METABOLIC PANEL Lab Routine Qualitative platelet disorder (HCC) Expected: 09/30/2024 (Approximate), Expires: 09/30/2024 [facility] Comment on above: Expected: 09/30/2024 (Approximate), Expi res: 09/30/2024 Start: 09-29-2024 End: 09-29-2024 Follow-up encounter 09/29/2024 9:45 AM EDT Visit (SP) Office Hematology/Oncology [address] [place] [address] [place] [address] Fuentes Amaral MD [address] [facility] [place] [address] 1 year follow up Hematology/Oncology Comment on above: 1 year follow up Start: 09-29-2024 End: 09-29-2024 Patient encounter procedure 09/29/2024 9:30 AM EDT Office Visit [facility] [address] [place] [address] 1 year follow up [facility] Comment on above: 1 year follow up Start: 08-30-2024 Screening for malignant neoplasm of breast Mammogram [facility] Start: 08-11-2024 End: 08-11-2024 Patient encounter procedure 08/11/2024 9:00 AM EDT Office Visit [facility] [address] [place] [address] Cas Dowell MD [address] [place] [address] [facility] Start: 07-08-2024 End: 07-08-2024 Patient encounter procedure 07/08/2024 8:30 AM EDT Office Visit [facility] [address] [place] [phone] Jodi Mazariegos, PONCE [address] [place] [address] [facility] Start: 07-04-2024 Tobacco Screening Tobacco Screening [facility] Start: 07-01-2024 End: 07-01-2024 Telemedicine consultation with patient [facility] Start: 05-07-2024 Adult BMI Screening [facility] Start: 05-07-2024 Tobacco Screening [facility] Start: 04-17-2024 End: 04-17-2024 Patient encounter procedure 04/17/2024 8:30 AM EDT Office Visit [facility] Part of [address] [phone] David Mai MD [address] [facility] [address] [place] [address] 6 mth f/u [facility] Part of [facility] Comment on above: 6 mth f/u Start: 04-12-2024 Urine screening for protein Diabetes: Urine Protein Screening [facility] Start: 02-27-2024 End: 02-27-2024 Patient encounter procedure 02/27/2024 8:15 AM EST Office Visit [facility] [address] [place] [phone] Cas Dowell MD [address] [place] [phone] Arrived [facility] Comment on above: Arrived Start: 02-22-2024 Hemoglobin A1c measurement Diabetes: Hemoglobin A1C [facility] Start: 02-11-2024 End: 02-10-2025 Hemoglobin A1c/Hemoglobin.total in Blood Hemoglobin A1c Lab Routine Type 2 diabetes mellitus with hyperglycemia, without long-term current use of insulin ([facility]) Expected: 02/11/2024 (Approximate), Expires: 02/10/2025 [facility] Work Phone: Comment on above: Expected: 02/11/2024 (Approximate), Expi res: 02/10/2025 Start: 01-14-2024 End: 01-14-2024 Patient encounter procedure 01/14/2024 9:40 AM EST Office Visit [facility] [address] [facility] [address] [place] [phone] Christy Painting MD [address] [facility] [address] [place] [address] [facility] Start: 01-09-2024 End: 01-09-2024 Patient encounter procedure 01/09/2024 8:45 AM EST Office Visit [facility] [address] [place] [address] Cas Dowell MD [address] [place] [address] [facility] Start: 01-05-2024 Adult BMI Screening Adult BMI Screening [facility] Start: 01-05-2024 Depression Screening Depression Screening [facility] Start: 01-05-2024 Tobacco Screening Tobacco Screening [facility] Start: 01-02-2024 End: 01-02-2024 Patient encounter procedure 01/02/2024 10:30 AM EST Office Visit [facility] [address] [place] [address] Marni Flowers APRN-SAT INSTRUCTOR [address] [place] [address] [facility] Start: 2023 Screening for malignant neoplasm of breast [facility] Start: 12-19-2023 GFR test (Diabetes, CKD 3-4, OR last GFR 15-59) GFR test (Diabetes, CKD 3-4, OR last GFR 15-59) [facility] Start: 12-19-2023 Urine screening for protein Diabetes: Urine Protein Screening [facility] Start: 11-22-2023 End: 11-22-2023 Patient encounter procedure 11/22/2023 8:45 AM EDT Office Visit [facility] [address] [phone] Akila Yao MD [address] [place] [address] [facility] Start: 11-20-2023 End: 11-19-2024 Cortisol free Cortisol, free Lab Routine PCOS (polycystic ovarian syndrome) Hormone disorder Expected: 11/20/2023, Expires: 11/19/2024 [facility] Comment on above: Expected: 11/20/2023, Expires: Start: 11-20-2023 End: 11-19-2024 DHEA DHEA Lab Routine PCOS (polycystic ovarian syndrome) Hormone disorder Expected: 11/20/2023, Expires: 11/19/2024 [facility] Comment on above: Expected: 11/20/2023, Expires: [...] Hormone disorder Expected: 11/20/2023 (Approximate), Expires: 11/19/2024 [facility] Comment on above: Expected: 11/20/2023 (Approximate), Expi res: 11/19/2024 Start: 11-20-2023 End: 11-19-2024 Progesterone Progesterone Lab Routine PCOS (polycystic ovarian syndrome) Hormone disorder Expected: 11/20/2023 (Approximate), Expires: 11/19/2024 [facility] Comment on above: Expected: 11/20/2023 [...] procedure 11/19/2023 8:45 AM EDT [facility] [address] [phone] Akila Yao MD 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 Expected: 11/07/2023 (Approximate), Expires: 05/07/2024 [facility] Comment on above: Expected: 11/07/2023 (Approximate), Expi res: 05/07/2024 Start: 11-07-2023 End: 11-07-2023 Patient encounter procedure [facility] Comment on above: Allergic reaction, subsequent encounter Start: 10-10-2023 End: 10-10-2023 Patient encounter procedure [facility] Comment on above: Arrived Start: 10-07-2023 COVID-19 Vaccine () COVID-19 Vaccine () [facility] Start: 10-07-2023 Covid-19 Vaccine (1 - 2024-25 season) Covid-19 Vaccine ( season) [facility] Start: 10-07-2023 Influenza vaccination [facility] Start: 10-03-2023 End: 10-03-2023 CBC W Auto Differential panel - Blood CBC + DIFF Lab Routine 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) Coagulopathy (HCC) Expected: 10/03/2023 (Approximate), Expires: 10/03/2023 [facility] Work Phone: Comment on above: Expected: 10/03/2023 (Approximate), Expi res: 10/03/2023 Start: 10-03-2023 End: 10-03-2023 Comprehensive metabolic 2000 panel - Serum or Plasma COMP METABOLIC PANEL Lab Routine 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) Coagulopathy (HCC) Expected: 10/03/2023 (Approximate), Expires: 10/03/2023 [facility] Work Phone: Comment on above: Expected: 10/03/2023 (Approximate), Expi res: 10/03/2023 Start: 09-26-2023 End: 09-26-2023 Patient encounter procedure 09/26/2023 9:15 AM EDT Office Visit [facility] [address] [place] [address] Cas Dowell MD [address] [place] [phone] Arrived [facility] Comment on above: Arrived Start: 09-06-2023 Influenza vaccination Flu vaccine (#1) [facility] Start: 07-10-2023 End: 07-10-2023 Patient encounter procedure 07/10/2023 9:00 AM EDT Office Visit [facility] [address] [place] [phone] Jodi Mazariegos, PONCE [address] [place] [address] [facility] Start: 07-05-2023 End: 07-05-2023 Telemedicine consultation with patient 07/05/2023 3:30 PM EDT Telemedicine [facility] [address] [place] [address] Marni Flowers, PIER [employer]-S[employer] IN[employer] [address] [place] [address] [facility] Start: 05-08-2023 End: 05-07-2024 US Thyroid gland Ultrasound thyroid Imaging Routine 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 [place] [address] [facility] Start: 04-09-2023 End: 04-09-2023 Patient encounter procedure 04/09/2023 8:45 AM EST Office Visit [facility] [address] [place] [phone] Cas Dowell MD [address] [place] [address] [facility] Start: 04-03-2023 Hemoglobin A1c measurement Diabetes: Hemoglobin A1C [facility] Start: 01-30-2023 GFR test (Diabetes, CKD 3-4, OR last GFR 15-59) GFR test (Diabetes, CKD 3-4, OR last GFR 15-59) [facility] Start: 01-09-2023 Hemoglobin A1c measurement A1C test (Diabetic or Prediabetic) [facility] Start: 10-17-2022 Adult depression screening assessment DEPRESSION SCREENING [facility] Start: 10-08-2022 Adult depression screening assessment DEPRESSION SCREENING [facility] Start: 10-06-2022 Covid-19 Vaccine ( season) Covid-19 Vaccine ( season) [facility] Start: 10-06-2022 Influenza vaccination [facility] Start: 10-01-2022 End: 04-03-2023 CBC W Auto Differential panel - Blood CBC + DIFF Lab Routine 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) Expected: 10/01/2022 (Approximate), Expires: 04/03/2023 [facility] Work Phone: Comment on above: Expected: 10/01/2022 (Approximate), Expi res: 04/03/2023 Start: 10-01-2022 End: 04-03-2023 Comprehensive metabolic 2000 panel - Serum or Plasma COMP METABOLIC PANEL Lab Routine 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) Expected: 10/01/2022 (Approximate), Expires: 04/03/2023 [facility] Work Phone: Comment on above: Expected: 10/01/2022 (Approximate), Expi res: 04/03/2023 Start: 09-14-2022 Adult depression screening assessment DEPRESSION SCREENING [facility] Start: 07-29-2022 Adult depression screening assessment DEPRESSION SCREENING [facility] Start: 06-29-2022 Adult depression screening assessment DEPRESSION SCREENING [facility] Start: 06-21-2022 End: 06-21-2022 Patient encounter procedure 06/21/2022 Office Visit Pulmonology Armando Balderrama, [address] [facility] [address] [place] [address] [facility] Start: 06-20-2022 Adult depression screening assessment DEPRESSION SCREENING [facility] Start: 05-25-2022 Depression Monitoring Depression Monitoring [facility] Start: 05-19-2022 Adult depression screening assessment DEPRESSION SCREENING [facility] Start: 04-16-2022 Creatinine measurement Creatinine monitoring [facility] Start: 04-16-2022 Potassium monitoring Potassium monitoring [facility] Start: 02-27-2022 End: 02-27-2022 Patient encounter procedure 02/27/2022 Office Visit Pulmonology Nabor Yancey, PIER [employer] - [employer] INSTRUCTOR [address] [facility] [address] [place], [place] [address] [facility] Start: 02-10-2022 End: 04-12-2022 PLATELET TRANSMISSION ELECTRON MICROSCOPIC STUDY PLATELET TRANSMISSION ELECTRON MICROSCOPIC STUDY Lab Routine 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) Expected: 02/10/2022, Expires: 04/12/2022 [facility] Work Phone: Comment on above: Expected: 02/10/2022, Expires: Start: 02-05-2022 DEPRESSION ASSESSMENT DEPRESSION ASSESSMENT [facility] Start: 2021 End: 2021 Patient encounter procedure 2021 Office Visit Pulmonology Armando Balderrama, [address] [phone] [facility] Start: 11-16-2021 End: 01-16-2022 Ferritin [Mass/volume] in Serum or Plasma FERRITIN BLD Lab Routine RLS (restless legs syndrome) Expected: 11/16/2021, Expires: 01/16/2022 [facility] Work Phone: Comment on above: Expected: 11/16/2021, Expires: 2 Start: 11-16-2021 End: 01-16-2022 Iron and Iron binding capacity panel - Serum or Plasma IRON + TIBC Lab Routine RLS (restless legs syndrome) Expected: 11/16/2021, Expires: 01/16/2022 [facility] Work Phone: Comment on above: Expected: 11/16/2021, Expires: 2 Start: 11-01-2021 Creatinine measurement Creatinine monitoring [facility] Work Phone: Start: 11-01-2021 Potassium monitoring Potassium monitoring [facility] Work Phone: Start: 10-06-2021 Influenza vaccination [facility] Start: 09-28-2021 Glaucoma screening Diabetic retinal exam [facility] Start: 09-21-2021 End: 11-21-2021 Phosphate [Mass/volume] in Serum or Plasma [facility] Work Phone: Comment on above: Expected: 09/21/2021, [...] joint, multiple sites Expected: 09/19/2021, Expires: 11/19/2021 [facility] Work Phone: Comment on above: Expected: 09/19/2021, [...] joint, multiple sites Expected: 09/19/2021, Expires: 11/19/2021 [facility] Work Phone: Comment on above: Expected: 09/19/2021, Expires: 2 Start: 09-19-2021 End: 11-19-2021 CARDIOLIPIN IGM ABS CARDIOLIPIN IGM ABS Lab Routine History of COVID-19 Post-acute sequelae of COVID-19 (PASC) SOB (shortness of breath) Chronic cough Chest discomfort Palpitation CAVANAUGH (dyspnea on exertion) Dizziness Near syncope Night sweats Orthopnea Anxiety Myalgia Pain in joint, multiple sites Expected: 09/19/2021, Expires: 11/19/2021 [facility] Work Phone: Comment on above: Expected: 09/19/2021, Expires: 2 Start: 09-19-2021 End: 11-19-2021 CBC panel - Blood by Automated count CBC Lab Routine History of COVID-19 Post-acute sequelae of COVID-19 (PASC) SOB (shortness of breath) Chronic cough Chest discomfort Palpitation CAVANAUGH (dyspnea on exertion) Dizziness Near syncope Night sweats Orthopnea Anxiety Myalgia Pain in joint, multiple sites Expected: 09/19/2021, Expires: 11/19/2021 [facility] Work Phone: Comment on above: Expected: 09/19/2021, [...] joint, multiple sites Expected: 09/19/2021, Expires: 11/19/2021 [facility] Work Phone: Comment on above: Expected: 09/19/2021, [...] joint, multiple sites Expected: 09/19/2021, Expires: 11/19/2021 [facility] Work Phone: Comment on above: Expected: 09/19/2021, Expires: 2 Start: 09-19-2021 End: 11-19-2021 Erythrocyte sedimentation rate SED RATE WESTERGREN Lab Routine History of COVID-19 Post-acute sequelae of COVID-19 (PASC) SOB (shortness of breath) Chronic cough Chest discomfort Palpitation CAVANAUGH (dyspnea on exertion) Dizziness Near syncope Night sweats Orthopnea Anxiety Myalgia Pain in joint, multiple sites Expected: 09/19/2021, Expires: 11/19/2021 [facility] Work Phone: Comment on above: Expected: 09/19/2021, Expires: 2 Start: 09-19-2021 End: 11-19-2021 Fibrin D-dimer FEU [Mass/volume] in Platelet poor plasma D-DIMER Lab Routine History of COVID-19 Post-acute sequelae of COVID-19 (PASC) SOB (shortness of breath) Chronic cough Chest discomfort Palpitation CAVANAUGH (dyspnea on exertion) Dizziness Near syncope Night sweats Orthopnea Anxiety Myalgia Pain in joint, multiple sites Expected: 09/19/2021, Expires: 11/19/2021 [facility] Work Phone: Comment on above: Expected: 09/19/2021, [...] joint, multiple sites Expected: 09/19/2021, Expires: 11/19/2021 [facility] Work Phone: Comment on above: Expected: 09/19/2021, Expires: 2 Start: 09-19-2021 End: 11-19-2021 OMEGACHECK OMEGACHECK Lab Routine History of COVID-19 Post-acute sequelae of COVID-19 (PASC) SOB (shortness of breath) Chronic cough Chest discomfort Palpitation CAVANAUGH (dyspnea on exertion) Dizziness Near syncope Night sweats Orthopnea Anxiety Myalgia Pain in joint, multiple sites Expected: 09/19/2021, Expires: 11/19/2021 [facility] Work Phone: Comment on above: Expected: 09/19/2021, Expires: 2 Start: 09-19-2021 End: 11-19-2021 TMAO TMAO Lab Routine History of COVID-19 Post-acute sequelae of COVID-19 (PASC) SOB (shortness of breath) Chronic cough Chest discomfort Palpitation CAVANAUGH (dyspnea on exertion) Dizziness Near syncope Night sweats Orthopnea Anxiety Myalgia Pain in joint, multiple sites Expected: 09/19/2021, Expires: 11/19/2021 [facility] Work Phone: Comment on above: Expected: 09/19/2021, Expires: 2 Start: 09-19-2021 End: 11-19-2021 TRACE ELEMENTS/TPN TRACE ELEMENTS/TPN Lab Routine History of COVID-19 Post-acute sequelae of COVID-19 (PASC) SOB (shortness of breath) Chronic cough Chest discomfort Palpitation CAVANAUGH (dyspnea on exertion) Dizziness Near syncope Night sweats Orthopnea Anxiety Myalgia Pain in joint, multiple sites Expected: 09/19/2021, Expires: 11/19/2021 [facility] Work Phone: Comment on above: Expected: 09/19/2021, Expires: 2 Start: 09-05-2021 Influenza vaccination Flu vaccine (#1) [facility] Start: 08-24-2021 End: 08-24-2021 Patient encounter procedure 08/24/2021 Office Visit Pulmonology Armando Balderrama, [address] [place] [address] [facility] Start: 07-25-2021 End: 09-24-2021 Complement C3 [Mass/volume] in Serum or Plasma [facility] Work Phone: Comment on above: Expected: 07/25/2021, Expires: 2 Start: 07-25-2021 End: 09-24-2021 Complement C4 [Mass/volume] in Serum or Plasma [facility] Work Phone: Comment on above: Expected: 07/25/2021, Expires: 2 Start: 07-25-2021 End: 09-24-2021 TRYPTASE BLOOD [facility] Work Phone: Comment on above: Expected: 07/25/2021, Expires: 2 Start: 07-05-2021 End: 09-04-2021 Corticotropin [Mass/volume] in Plasma ACTH BLD Lab Routine Screening for endocrine disorder Expected: 07/05/2021, Expires: 09/04/2021 [facility] Work Phone: Comment on above: Expected: 07/05/2021, Expires: 2 Start: 07-05-2021 End: 09-04-2021 Cortisol [Mass/volume] in Serum or Plasma CORTISOL BLD Lab Routine Screening for endocrine disorder Expected: 07/05/2021, Expires: 09/04/2021 [facility] Work Phone: Comment on above: Expected: 07/05/2021, Expires: 2 Start: 07-01-2021 End: 08-31-2021 CBC W Ordered Manual Differential panel - Blood PATHOLOGIST INTERPRETATION WITH CBC AND DIFF Lab Routine Coagulopathy (HCC) Qualitative platelet disorder (HCC) Expected: 07/01/2021, Expires: 08/31/2021 [facility] Work Phone: Comment on above: Expected: 07/01/2021, Expires: 2 Start: 07-01-2021 End: 08-31-2021 Fibrinogen [Mass/volume] in Platelet poor plasma by Coagulation assay FIBRINOGEN Lab Routine Coagulopathy (HCC) Qualitative platelet disorder (HCC) Expected: 07/01/2021, Expires: 08/31/2021 [facility] Work Phone: Comment on above: Expected: 07/01/2021, Expires: 2 Start: 07-01-2021 End: 08-31-2021 FIBRINOGEN ANTIGEN FIBRINOGEN ANTIGEN Lab Routine Coagulopathy (HCC) Qualitative platelet disorder (HCC) Expected: 07/01/2021, Expires: 08/31/2021 [facility] Work Phone: Comment on above: Expected: 07/01/2021, Expires: 2 Start: 07-01-2021 End: 08-31-2021 PLATELET AGGREGATION PANEL PLATELET AGGREGATION PANEL Lab Routine Coagulopathy (HCC) Qualitative platelet disorder (HCC) Expected: 07/01/2021, Expires: 08/31/2021 [facility] Work Phone: Comment on above: Expected: 07/01/2021, Expires: 2 Start: 07-01-2021 End: 08-31-2021 PLATELET FUNCTION SCREEN PLATELET FUNCTION SCREEN Lab Routine Coagulopathy (HCC) Qualitative platelet disorder (HCC) Expected: 07/01/2021, Expires: 08/31/2021 [facility] Work Phone: Comment on above: Expected: 07/01/2021, Expires: 2 Start: 07-01-2021 End: 08-31-2021 THROMBOGRAPH HEPARINASE PANEL THROMBOGRAPH HEPARINASE PANEL Lab Routine Coagulopathy (HCC) Qualitative platelet disorder (HCC) Expected: 07/01/2021, Expires: 08/31/2021 [facility] Work Phone: Comment on above: Expected: 07/01/2021, Expires: 2 Start: 06-27-2021 End: 08-27-2021 Alpha tocopherol [Mass/volume] in Serum or Plasma VITAMIN E/TOCOPHEROL Lab Routine Muscle spasms of lower extremity, unspecified laterality Akathisia Expected: 06/27/2021, Expires: 08/27/2021 [facility] Work Phone: Comment on above: Expected: 06/27/2021, Expires: 2 Start: 06-27-2021 End: 08-27-2021 Ceruloplasmin [Mass/volume] in Serum or Plasma CERULOPLASMIN BLD Lab Routine Muscle spasms of lower extremity, unspecified laterality Akathisia Expected: 06/27/2021, Expires: 08/27/2021 [facility] Work Phone: Comment on above: Expected: 06/27/2021, Expires: 2 Start: 06-27-2021 End: 08-27-2021 CK CREATINE KINASE CK CREATINE KINASE Lab Routine Muscle spasms of lower extremity, unspecified laterality Akathisia Expected: 06/27/2021, Expires: 08/27/2021 [facility] Work Phone: Comment on above: Expected: 06/27/2021, Expires: 2 Start: 06-27-2021 End: 08-27-2021 COPPER, SERUM/PLASMA FREE COPPER, SERUM/PLASMA FREE Lab Routine Muscle spasms of lower extremity, unspecified laterality Akathisia Expected: 06/27/2021, Expires: 08/27/2021 [facility] Work Phone: Comment on above: Expected: 06/27/2021, Expires: 2 Start: 06-27-2021 End: 08-27-2021 FERRITIN BLD FERRITIN BLD Lab Routine Muscle spasms of lower extremity, unspecified laterality Akathisia Expected: 06/27/2021, Expires: 08/27/2021 [facility] Work Phone: Comment on above: Expected: 06/27/2021, Expires: 2 Start: 06-14-2021 End: 08-14-2021 Corticotropin [Mass/volume] in Plasma ACTH BLD Lab Routine Screening for endocrine disorder Expected: 06/14/2021, Expires: 08/14/2021 [facility] Work Phone: Comment on above: Expected: 06/14/2021, Expires: 2 Start: 06-14-2021 End: 08-14-2021 Cortisol [Mass/volume] in Serum or Plasma [facility] Work Phone: Comment on above: Expected: 06/14/2021, Expires: 2 Start: 06-14-2021 End: 08-14-2021 DHEA-S BLD [facility] Work Phone: Comment on above: Expected: 06/14/2021, Expires: 2 Start: 06-10-2021 End: 08-10-2021 APTT INCUBATED MIXING STUDY APTT INCUBATED MIXING STUDY Lab Routine Coagulopathy ([facility]) Expected: 06/10/2021, Expires: 08/10/2021 [facility] Work Phone: Comment on above: Expected: 06/10/2021, Expires: 2 Start: 06-10-2021 End: 08-10-2021 Coagulation factor IX activity actual/normal in Platelet poor plasma by Coagulation assay FACTOR IX:C ASSAY Lab Routine Coagulopathy ([facility]) Expected: 06/10/2021, Expires: 08/10/2021 [facility] Work Phone: Comment on above: Expected: 06/10/2021, Expires: 2 Start: 06-10-2021 End: 08-10-2021 Coagulation factor V activity actual/normal in Platelet poor plasma by Coagulation assay FACTOR V:C ASSAY Lab Routine Coagulopathy ([facility]) Expected: 06/10/2021, Expires: 08/10/2021 [facility] Work Phone: Comment on above: Expected: 06/10/2021, Expires: 2 Start: 06-10-2021 End: 08-10-2021 Coagulation factor VIII activity actual/normal in Platelet poor plasma by Coagulation assay FACTOR VIII:C ASSAY Lab Routine Coagulopathy ([facility]) Expected: 06/10/2021, Expires: 08/10/2021 [facility] Work Phone: Comment on above: Expected: 06/10/2021, Expires: 2 Start: 06-10-2021 End: 08-10-2021 Coagulation factor X activity actual/normal in Platelet poor plasma by Coagulation assay FACTOR X:C ASSAY Lab Routine Coagulopathy ([facility]) Expected: 06/10/2021, Expires: 08/10/2021 [facility] Work Phone: Comment on above: Expected: 06/10/2021, Expires: 2 Start: 06-10-2021 End: 08-10-2021 Coagulation factor XI activity actual/normal in Platelet poor plasma by Coagulation assay FACTOR XI:C ASSAY Lab Routine Coagulopathy ([facility]) Expected: 06/10/2021, Expires: 08/10/2021 [facility] Work Phone: Comment on above: Expected: 06/10/2021, Expires: 2 Start: 06-10-2021 End: 08-10-2021 PLATELET AGGREGATION PANEL PLATELET AGGREGATION PANEL Lab Routine Coagulopathy ([facility]) Expected: 06/10/2021, Expires: 08/10/2021 [facility] Work Phone: Comment on above: Expected: 06/10/2021, Expires: 2 Start: 06-10-2021 End: 08-10-2021 PLATELET FUNCTION SCREEN PLATELET FUNCTION SCREEN Lab Routine Coagulopathy ([facility]) Expected: 06/10/2021, Expires: 08/10/2021 [facility] Work Phone: Comment on above: Expected: 06/10/2021, Expires: 2 Start: 06-10-2021 End: 08-10-2021 Prothrombin activity actual/normal in Platelet poor plasma by Coagulation assay FACTOR II:C ASSAY Lab Routine Coagulopathy ([facility]) Expected: 06/10/2021, Expires: 08/10/2021 [facility] Work Phone: Comment on above: Expected: 06/10/2021, Expires: 2 Start: 06-10-2021 End: 08-10-2021 VON WILLEBRAND DX PANEL VON WILLEBRAND DX PANEL Lab Routine Coagulopathy ([facility]) Expected: 06/10/2021, Expires: 08/10/2021 [facility] Work Phone: Comment on above: Expected: 06/10/2021, Expires: Start: 05-25-2021 End: 05-25-2021 Patient encounter procedure 05/25/2021 Office Visit Pulmonology Armando Balderrama DO [address] [place] [phone] [facility] Start: 02-28-2021 End: 02-28-2021 Patient encounter procedure 02/28/2021 Office Visit Pulmonology Fortunato Dean MD [address] [place] [address] [id number] [facility] Start: 02-05-2021 DEPRESSION ASSESSMENT DEPRESSION ASSESSMENT [facility] Start: 10-06-2020 Influenza vaccination [facility] Start: 06-28-2020 End: 06-28-2020 Patient encounter procedure 06/28/2020 Office Visit Pulmonology Fortunato Dean MD [address] [place] [address] [id number] [facility] Start: 12-20-2018 Diabetes screen Diabetes screen [facility] Start: 03-17-2016 Screening for malignant neoplasm of cervix Cervical cancer screen [facility] Work Phone: Start: 12-20-2013 HPV TESTING HPV TESTING [facility] Start: 12-20-2004 PAP TESTING PAP TESTING [facility] Start: 12-20-2004 Screening for malignant neoplasm of cervix Cervical Cancer Screening [facility] Start: 12-20-2002 DTaP,Tdap and Td Vaccines (1 - Tdap) DTaP,Tdap and Td Vaccines (1 - Tdap) [facility] Start: 12-20-2002 DTaP/Tdap/Td vaccine (1 - Tdap) DTaP/Tdap/Td vaccine (1 - Tdap) [facility] Start: 12-20-2002 Hepatitis B Vaccine (1 of 3 - 19+ 3-dose series) Hepatitis B Vaccine (1 of 3 - 19+ 3-dose series) [facility] Start: 12-20-2002 Hepatitis B vaccine (1 of 3 - Risk 3-dose series) Hepatitis B vaccine (1 of 3 - Risk 3-dose series) [facility] Start: 12-20-2002 Urine microalbumin profile [facility] Start: 12-20-2002 Urine screening for protein Diabetes: Urine Protein Screening [facility] Start: 12-20-2001 Adult BMI Follow Up Plan Adult BMI Follow Up Plan [facility] Start: 12-20-2001 ANNUAL PCP TEAM CHRONIC DISEASE VISIT ANNUAL PCP TEAM CHRONIC DISEASE VISIT [facility] Start: 12-20-2001 Anxiety Screening Anxiety Screening [facility] Start: 12-20-2001 Depression Screening Depression Screening [facility] Start: 12-20-2001 Glaucoma screening Diabetic retinal exam [facility] [employer] [facility] Start: 12-20-2001 HEPATITIS C SCREENING HEPATITIS C SCREENING [facility] Start: 12-20-2001 Hepatitis C screening [facility] Start: 12-20-2001 HIV SCREENING HIV SCREENING [facility] Start: 12-20-2001 HIV screening HIV Screening [facility] Start: 12-20-2001 Urine screening for protein Diabetic Alb to Cr ratio (uACR) test [facility] [employer] [facility] [employer] Start: 1999 COVID-19 Vaccine (1) COVID-19 Vaccine (1) [employer] Phone: Start: 12-20-1998 HIV screening HIV screen [facility] Start: 12-20-1996 Varicella vaccine (1 of 2 - 13+ 2-dose series) Varicella vaccine (1 of 2 - 13+ 2-dose series) [employer] [facility] Start: 1995 COVID-19 Vaccine (1) COVID-19 Vaccine (1) [employer] Phone: Start: 1995 Depression Screen Depression Screen [facility] Start: 12-20-1993 Diabetic foot examination Diabetic foot exam [employer] [facility] Start: 12-20-1993 Glaucoma screening Diabetes: Retinopathy [facility] [facility] Start: 12-20-1993 Lipid panel Lipids [facility] [employer] Start: 12-20-1989 PNEUMOCOCCAL (1 - PCV) PNEUMOCOCCAL (1 - PCV) [facility] Start: 12-20-1989 Pneumococcal 0-64 years Vaccine (1 - PCV) Pneumococcal 0-64 years Vaccine (1 - PCV) [facility] Start: 12-20-1989 Pneumococcal 0-64 years Vaccine (1 of 2 - PCV) Pneumococcal 0-64 years Vaccine (1 of 2 - PCV) Maria C Dang [facility] Start: 12-20-1989 Pneumococcal 0-64 years Vaccine (1 of 2 - PPSV23) Pneumococcal 0-64 years Vaccine (1 of 2 - PPSV23) [facility] Start: 12-20-1989 Pneumococcal vaccination Pneumococcal Vaccine (1 of 2 - PCV) [facility] Start: 12-20-1988 COVID-19 VACCINE (#1) COVID-19 VACCINE (#1) [facility] Start: 12-20-1988 COVID-19 Vaccine (1) COVID-19 Vaccine (1) [facility] Start: 12-20-1984 Varicella vaccine (1 of 2 - 2-dose childhood series) Varicella vaccine (1 of 2 - 2-dose childhood series) [facility] Start: 06-19-1984 COVID-19 VACCINE (#1) COVID-19 VACCINE (#1) [facility] Start: 1985 HEPATITIS B (1 of 3 - 3-dose series) HEPATITIS B (1 of 3 - 3-dose series) [facility] Start: 1985 Hepatitis C screening Hepatitis C screen [facility] ACTIGRAPHY TESTING ACTIGRAPHY TE STING Procedures Routine Shift work sleep disorder Poor sleep pattern 1 Occurrences starting 11/16/2021 [facility] Work Phone: Comment on above: 1 Occurrences starting 11/16/2021 Ambulatory bp mntr w /sw 24 hr+ rec scan ewa i&r AMBULATORY BP MONITORING Cardiology Routine Blood pressure instability Ordered: 07/21/2021 [facility] Work Phone: Comment on above: Ordered: 07/21/2021 BLOOD CULTURE 1 BLOOD CULTURE 1 Lab Routine 02/20/2024 2:16 PM EST [facility] BLOOD CULTURE 2 BLOOD CULTURE 2 Lab Routine 02/20/2024 2:17 PM EST [facility] Cardiovascular funct ion eval w/tilt table w/mntr TILT TABLE EVALUATION Cardiology Routine Palpitations Symptomatic bradycardia Orthostatic intolerance Ordered: 10/20/2021 [facility] Work Phone: Comment on above: Ordered: 10/20/2021 Cytology Cervical or vaginal smear or scraping study Pap Smear Pathology and Cytology Routine Well woman exam with routine gynecological exam Ordered: 11/20/2023 [employer] Work Phone: Comment on above: Ordered: 11/20/2023 End: 07-21-2022 Echocardiography ECHO Cardiology Routine Symptomatic bradycardia Blood pressure instability History of COVID-19 1 Occurrences starting 07/21/2021 until 07/21/2022 [employer] [facility] [employer] Work Phone: Comment on above: 1 Occurrences starting 07/21/2021 until 07/21/2022 EKG 12 Lead EKG 12 Lead ECG STAT 11/01/2020 4:26 PM EDT [employer] Work Phone: EKG 12 Lead EKG 12 Lead ECG STAT 04/16/2021 8:11 PM EST [employer] Work Phone: EKG 12 Lead EKG 12 Lead ECG STAT 06/21/2021 12:06 AM EDT [employer] Work Phone: Human papilloma viru s DNA [Presence] in Unspecified specimen by Probe with amplification HPV DNA probe, amplified Microbiology Routine Well woman exam with routine gynecological exam Ordered: 11/20/2023 [employer] Comment on above: Ordered: 11/20/2023 End: 10-19-2022 LUNG DIFFUSION CAPACITY (DLCO) LUNG DIFFUSION CAPACITY (DLCO) PFT Routine History of COVID-19 Post-acute sequelae of COVID-19 (PASC) SOB (shortness of breath) Chronic cough Chest discomfort Palpitation CAVANAUGH (dyspnea on exertion) Dizziness Near syncope Night sweats Orthopnea Anxiety Myalgia Pain in joint, multiple sites 1 Occurrences starting 09/19/2021 until 10/19/2022 [employer] Work Phone: Comment on above: 1 Occurrences starting 09/19/2021 until 10/19/2022 End: 10-19-2022 LUNG VOLUMES LUNG VOLUMES PFT Routine History of COVID-19 Post-acute sequelae of COVID-19 (PASC) SOB (shortness of breath) Chronic cough Chest discomfort Palpitation CAVANAUGH (dyspnea on exertion) Dizziness Near syncope Night sweats Orthopnea Anxiety Myalgia Pain in joint, multiple sites 1 Occurrences starting 09/19/2021 until 10/19/2022 [facility] Work Phone: Comment on above: 1 Occurrences starting 09/19/2021 until 10/19/2022 End: 12-27-2023 Mumps Antibody, IgG [employer] Comment on above: Once for 1 Occurrences starting 12/27/19 until 12/27/2023 End: 01-05-2023 NITRIC OXIDE, EXHALED NITRIC OXIDE, EXHALED PFT Routine Moderate persistent asthma without complication SOB (shortness of breath) Post-acute sequelae of COVID-19 (PASC) 1 Occurrences starting 12/06/2021 until 01/05/2023 [facility] Work Phone: Comment on above: 1 Occurrences starting 12/06/2021 until 01/05/2023 OUTSIDE VENDOR CARDI AC OUTPATIENT EXTENDED RHYTHM RECORDING (WITHOUT TELEMETRY) OUTSIDE VENDOR CARDIAC OUTPATIENT EXTENDED RHYTHM RECORDING (WITHOUT TELEMETRY) Holter Routine Palpitations Symptomatic bradycardia Orthostatic lightheadedness Diffuse pain Blood pressure instability Decreased activity tolerance Orthostatic intolerance Moderate persistent asthma without complication Physical deconditioning Ordered: 10/20/2021 [facility] Work Phone: Comment on above: Ordered: 10/20/2021 End: 12-16-2022 PAP NAP PSG (CPAP, BILEVEL, ASV) PAP NAP PSG (CPAP, BILEVEL, ASV) Procedures Routine KATELIN on CPAP Poor compliance with CPAP treatment 1 Occurrences starting 11/16/2021 until 12/16/2022 [facility] Work Phone: Comment on above: 1 Occurrences starting 11/16/2021 until 12/16/2022 End: 12-16-2022 PAP TITRATION PSG (CPAP, BIPAP, ASV) PAP TITRATION PSG (CPAP, BIPAP, ASV) Procedures Routine KATELIN on CPAP 1 Occurrences starting 11/16/2021 until 12/16/2022 [facility] Work Phone: Comment on above: 1 Occurrences starting 11/16/2021 until 12/16/2022 End: 02-17-2022 PLATELET ELECT.MICRO BON [employer] Work Phone: Comment on above: Once for 1 Occurrences starting 02/17/19 23 until 02/17/2022 End: 10-19-2022 Radiologic exam chest 2 views XR CHEST 2V FRONTAL/LAT Radiology Routine History of COVID-19 Post-acute sequelae of COVID-19 (PASC) SOB (shortness of breath) Chronic cough Chest discomfort Palpitation CAVANAUGH (dyspnea on exertion) Dizziness Near syncope Night sweats Orthopnea Anxiety Myalgia Pain in joint, multiple sites 1 Occurrences starting 09/19/2021 until 10/19/2022 [facility] Work Phone: Comment on above: 1 Occurrences starting 09/19/2021 until 10/19/2022 End: 12-27-2023 Rubeola Antibody, IgG [facility] Work Phone: Comment on above: Once for 1 Occurrences starting 12/27/19 24 until 12/27/2023 End: 10-19-2022 SIX MINUTE WALK SIX MINUTE WALK PFT Routine History of COVID-19 Post-acute sequelae of COVID-19 (PASC) SOB (shortness of breath) Chronic cough Chest discomfort Palpitation CAVANAUGH (dyspnea on exertion) Dizziness Near syncope Night sweats Orthopnea Anxiety Myalgia Pain in joint, multiple sites 1 Occurrences starting 09/19/2021 until 10/19/2022 [facility] Work Phone: Comment on above: 1 Occurrences starting 09/19/2021 until 10/19/2022 SIX MINUTE WALK SIX MINUTE WALK PFT Routine History of COVID-19 Post-acute sequelae of COVID-19 (PASC) SOB (shortness of breath) Chronic cough Chest discomfort Palpitation CAVANAUGH (dyspnea on exertion) Dizziness Near syncope Night sweats Orthopnea Anxiety Myalgia Pain in joint, multiple sites 09/27/2021 8:23 AM EDT [facility] Work Phone: End: 10-19-2022 SPIROMETRY - BASELINE AND POST DILATOR SPIROMETRY - BASELINE AND POST DILATOR PFT Routine History of COVID-19 Post-acute sequelae of COVID-19 (PASC) SOB (shortness of breath) Chronic cough Chest discomfort Palpitation CAVANAUGH (dyspnea on exertion) Dizziness Near syncope Night sweats Orthopnea Anxiety Myalgia Pain in joint, multiple sites 1 Occurrences starting 09/19/2021 until 10/19/2022 [facility] Work Phone: Comment on above: 1 Occurrences starting 09/19/2021 until 10/19/2022 End: 01-05-2023 SPIROMETRY - BASELINE AND POST DILATOR SPIROMETRY - BASELINE AND POST DILATOR PFT Routine Moderate persistent asthma without complication SOB (shortness of breath) Post-acute sequelae of COVID-19 (PASC) 1 Occurrences starting 12/06/2021 until 01/05/2023 [facility] Work Phone: Comment on above: 1 Occurrences starting 12/06/2021 until 01/05/2023 End: 05-07-2024 Thyroid profile includes TSH FT4 Thyroid profile includes TSH FT4 Lab Routine 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 1 Occurrences starting 05/08/2023 until 05/07/2024 [employer] Work Phone: Comment on above: 1 Occurrences starting 05/08/2023 until 05/07/2024 End: 11-21-2024 Thyrotropin [Units/volume] in Serum or Plasma TSH Lab Routine 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 1 Occurrences starting 11/22/2023 until 11/21/2024 [employer] Work Phone: Comment on above: 1 Occurrences starting 11/22/2023 until 11/21/2024 End: 11-21-2024 Thyroxine (T4) free [Mass/volume] in Serum or Plasma T4, free Lab Routine 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 1 Occurrences starting 11/22/2023 until 11/21/2024 [employer] Comment on above: 1 Occurrences starting 11/22/2023 until 11/21/2024 End: 10-19-2022 Us chest real time w/image documentation US CHEST WALL/SOFT TISSUE Radiology Routine Post-acute sequelae of COVID-19 (PASC) Mass of left axilla 1 Occurrences starting 09/19/2021 until 10/19/2022 [facility] Work Phone: Comment on above: 1 Occurrences starting 09/19/2021 until 10/19/2022 End: 09-15-2022 Us pelvic nonobstetric image dcmtn limited/f/u US PELVIS LTD Radiology Routine Chronic RLQ pain 1 Occurrences starting 08/16/2021 until 09/15/2022 [facility] Work Phone: Comment on above: 1 Occurrences starting 08/16/2021 until 09/15/2022 End: 09-14-2022 US SOFT TISSUE ABDOMEN US SOFT TISSUE ABDOMEN Radiology Routine Chronic RLQ pain 1 Occurrences starting 08/15/2021 until 09/14/2022 [facility] Work Phone: Comment on above: 1 Occurrences starting 08/15/2021 until 09/14/2022 End: 12-27-2023 Varicella Zoster Antibody, IgG [facility] Comment on above: Once for 1 Occurrences starting 12/27/19 until 12/27/2023 [facility] Immunizations Immunization Date Immunization Notes Care Provider [facility] 11-20-2019 influenza virus vaccine, H5N1, A[facility] Cas Dowell MD Work Phone: [facility] 11-20-2019 influenza virus vaccine, unspecified formulation Araseli Barrett MD Work Phone: [facility] Work Phone: 11-20-2019 influenza, unspecified formulation LORAINENATALI BURNHAM [facility] 11-06-2019 influenza virus vaccine, unspecified formulation LORAINE TEJ [facility] 11-06-2019 influenza, high dose seasonal, preservative-free Yan Bass MD Work Phone: [facility] 10-27-2019 influenza virus vaccine, unspecified formulation LORAINE BURNHAM [facility] 10-27-2019 influenza, injectable, quadrivalent, preservative free Yan Bass MD Work Phone: [facility] NEGATED: Highlighted row has not occurred!01-04-2023 influenza virus vaccine, unspecified formulation Selma Jesusmiguelina [facility] [place] Payers Date Payer Category Payer Unknown [id number] 2022 Blue Cross Blue Shield [id number] 2022 Blue Cross [employer] Managed Care - PPO [id number] 2022 Unknown [id number] .[id number] 2022 Unknown [id number] 2022 Unknown [id number] 2022 Unknown [id number] 2014 Unknown MMO MMO [employer] [id number] 2014-Present [phone] [address] [place] [address] O [id number] .[id number] 2014 Unknown [id number] 1.13.159.2 .7.3.146848.315 1983 Unknown [id number] 2.16.840.1.028253.3.579.2 .174 1983 Unknown [id number] 2.16.840.1.198016.3.579.2 .174 1983 Unknown [id number] 2.16.840.1.752714.3.579.2 .175 1983 Unknown [id number] 2.16.840.1.243736.3.579.2 .593 1983 Unknown [id number] 2.16.840.1.518596.3.579.2 .593 1983 Unknown [id number] 2.16.840.1.272105.3.579.2 .593 1983 Unknown [id number] 2.16.840.1.147156.3.579.2 .593 1983 Unknown [id number] 2.16.840.1.862707.3.579.2 .593 1983 Unknown [id number] 2.16.840.1.137926.3.579.2 .593 1983 Unknown [id number] 2.16.840.1.414903.3.579.2 .593 1983 Unknown [id number] 2.16.840.1.264304.3.579.2 .593 1983 Unknown [id number] 2.16.840.1.690613.3.579.2 .593 1983 Unknown [id number] 2.16.840.1.110987.3.579.2 .593 1983 Unknown [id number] 2.16.840.1.881376.3.579.2 .593 1983 Unknown [id number] 2.16.840.1.922771.3.579.2 .593 1983 Unknown [id number] 2.16.840.1.963193.3.579.2 .727 1983 Unknown [id number] 2.16.840.1.429251.3.579.2 .727 1983 Unknown [id number] 2.16.840.1.313479.3.579.2 .727 1983 Unknown [id number] 2.16.840.1.173175.3.579.2 .727 1983 Unknown [id number] 2.16.840.1.624731.3.579.2 .173 1983 Unknown [id number] 2.16.840.1.355740.3.579.2 .173 1983 Unknown [id number] 2.16.840.1.384510.3.579.2 .1286 1983 Unknown [id number] 2.16.840.1.870785.3.579.2 .1286 1983 Unknown [id number] 2.16.840.1.324975.3.579.2 .1286 1983 Unknown [id number] 2.16.840.1.483517.3.579.2 .1286 1983 Unknown [id number] 2.16.840.1.612979.3.579.2 .1286 1983 Unknown [id number] 2.16.840.1.027999.3.579.2 .1259 1983 Unknown [id number] 2.16.840.1.662121.3.579.2 .1259 1983 Unknown [id number] 2.16.840.1.814611.3.579.2 .1259 1983 Unknown [id number] 2.16.840.1.047828.3.579.2 .9 1983 Unknown [id number] 2.16.840.1.949606.3.579.2 .9 1983 Unknown [id number] 2.16.840.1.216353.3.579.2 .1258 1983 Unknown [id number] 2.16.840.1.651221.3.579.2 .9 1983 Unknown [id number] 2.16.840.1.863926.3.579.2 .9 1983 Unknown [id number] 2.16.840.1.516137.3.579.2 .9 1983 Unknown [id number] 2.16.840.1.930008.3.579.2 .9 1983 Unknown [id number] 2.16.840.1.810347.3.579.2 .196 1983 Unknown [id number] 2.16.840.1.228419.3.579.2 .196 1983 Unknown [id number] 2.16.840.1.465319.3.579.2 .196 1959 Unknown [id number] 1.2.840.677192.1.13.239.2 .7.3.431643.315 1959 Unknown [id number] 1.2.840.998400.1.13.239.2 .7.3.337309.315 Social History Date Type Detail Facility Start: 06-13-2020 End: 07-07-2022 Tobacco smoking status DEIS Never smoker [employer] Phone: Start: 06-13-2020 End: 10-18-2023 Alcohol intake Current non-drinker of alcohol (finding) [employer] Phone: Start: 1985 Sex Assigned At Not on file [employer] Work Phone: Start: 05-10-2021 End: 01-30-2022 Exposure to SARS-CoV-2 (event) Not sure [employer] Start: 08-30-2020 End: 07-07-2022 Tobacco use and exposure Never used [employer] Start: 05-24-2021 End: 07-01-2021 Alcohol intake Current drinker of alcohol (finding) [facility] Start: 02-23-2014 History SDOH Alcohol Comment rarely uses alcohol [facility] Start: 1985 Sex Assigned At Female [facility] Start: 07-22-2021 End: 01-02-2024 Alcohol intake Ex-drinker (finding) [facility] Start: 09-17-2021 End: 09-27-2021 Exposure to SARS-CoV-2 (event) Unable to assess [facility] History of tobacco use Passive smoker [facility] Tobacco smoking status Never [facility] Start: 10-02-2022 End: 04-08-2023 Sex Assigned At Female [facility] Start: 10-02-2022 End: 04-08-2023 History of Social function [facility] Start: 09-26-2020 Gender identity Identifies as female gender (finding) [facility] Start: 09-26-2020 Sexual orientation Heterosexual (finding) [facility] Start: 01-16-2023 End: 02-27-2024 Alcohol intake Lifetime non-drinker (finding) [facility] [...] [facility] Start: 09-10-2014 Sex Female (finding) [facility] Functional Status Date Assessment Result Facility 10-02-2023 Functional Status N/A [facility] 09-05-2022 Functional Status N/A [facility] 02-28-2022 Functional Status N/A [facility] 01-20-2022 Functional Status N/A [facility] 2021 Functional Status N/A [facility] Clinical Notes 09-06-2020 to 02-27-2024 Cas Dowell MD - 02/27/2024 8:57 AM Gali Dowell MD - 02/27/2024 8:15 AM Gali Dowell MD - 02/11/2024 10:36 AM Gali Dowell MD - 02/11/2024 10:36 AM ESTPatient InstructionsAttachments Note Date & Type Note Facility 02-27-2024 History of Present illness Narrative Associated Problem(s): COVID-19 Recent infection and continued cough and SOB. Repeat steroids and use albuterol every 4 hours x 48 then PRN. Use OTC PRN for symptoms. Images from the original note were not included. Subjective Patient ID: Leana Tran is a 38 y.o. female who presents for Follow-up ([facility] er f/up/Covid + 02/20/24 /Head feel funny ). ER follow up from 02/19 for Covid. Developed cough, SOB, and pain in left side chest. To urgent care and vitals stable. Covid positive and directed to ER to rule out PE. CTA performed and negative. Given decadron and discharged. Overall improved but still cough and SOB. Feels like phlegm in chest and not able to get out. Still SOB with exertion. Mild discomfort in left chest. Afebrile. Mild fatigue. Review of Systems Respiratory: Negative for cough, shortness of breath and wheezing. Cardiovascular: Negative for chest pain and palpitations. Gastrointestinal: Negative for abdominal pain, diarrhea, nausea and vomiting. Genitourinary: Negative for dysuria. Objective Physical Exam Constitutional: General: She is not in acute distress. Appearance: Normal appearance. HENT: Head: Normocephalic. Right Ear: Tympanic membrane normal. Left Ear: Tympanic membrane normal. Eyes: Extraocular Movements: Extraocular movements intact. Pupils: Pupils are equal, round, and reactive to light. Cardiovascular: Rate and Rhythm: Normal rate and regular rhythm. Heart sounds: No murmur heard. No friction rub. No gallop. Pulmonary: Effort: Pulmonary effort is normal. Breath sounds: Normal breath sounds. No wheezing, rhonchi or rales. Abdominal: General: Bowel sounds are normal. There is no distension. Palpations: Abdomen is soft. Tenderness: There is no abdominal tenderness. There is no guarding or rebound. Musculoskeletal: Cervical back: Neck supple. Right lower leg: No edema. Left lower leg: No edema. Neurological: Mental Status: She is alert. Assessment/Plan Problem List Items Addressed This Visit Moderate persistent asthma without complication (CMS/HCC) Relevant Medications levalbuterol (Xopenex Concentrate) 1.25 MG/0.5ML nebulizer solution COVID-19 - Primary Recent infection and continued cough and SOB. Repeat steroids and use albuterol every 4 hours x 48 then PRN. Use OTC PRN for symptoms. Relevant Medications predniSONE (Deltasone) 10 MG tablet documented in this encounter [facility] 02-11-2024 History of Present illness Narrative Associated Problem(s): Type 2 diabetes mellitus with hyperglycemia, without long-term current use of insulin ([facility]/HCC) Reports BS controlled and due for A1C. Stick to ADA diet and limit carbs. Associated Problem(s): Moderate persistent asthma without complication (CMS/HCC) Breathing stable with symbicort and continue. Tachycardia from albuterol and try xopenex PRN. Associated Problem(s): MDD (major depressive disorder), recurrent episode, mild (HCC) ([facility]) Symptoms stable and follow with psychiatry. Associated Problem(s): Edema of both legs Edema stable and elevate legs PRN. 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 Associated Problem(s): Chronic allergic rhinitis due to pollen Symptoms stable with medication and continue. Associated Problem(s): Autonomic dysfunction Continued symptoms and continue medication. Follow with cardiology as scheduled. Associated Problem(s): Gastroesophageal reflux disease No symptoms Associated Problem(s): Class 2 severe obesity due to excess calories with serious comorbidity and body mass index (BMI) of 37.0 to 37.9 in adult ([facility]) Weight loss indicated Images from the original note were not included. Subjective Patient ID: Leana Tran is a 38 y.o. female who presents for Follow-up (3m/). Follow up DM, post-covid, asthma, allergies, and edema. Patient stable today. Reports BS controlled around 88-100. Tries to eat well and stick to ADA diet. Denies signs of elevated BS such as polyuria, polyphagia or polydipsia. Post-covid symptoms unchanged. Continues to have severe fatigue. Not able to do things around house or complete ADLs without frequent breaks. Still brain fog and loses train of thought. Frequent palpitations and heart racing. Feels lightheaded and off balance with activity. At times pulse low and feels lightheaded and other times heart racing. Following with cardiology. Asthma stable. Mild cough and SOB with exertion. No chest tightness or pressure. Using symbicort daily and albuterol PRN which helps. Seen by die machine operator and added spiriva. PFTs abnormal. Following with pulmonology. Allergies controlled with medication. No congestion or rhinorrhea. No HAHN or sinus pressure. Ears not plugged or popping. Edema stable without medication. Mild swelling at end of day and if on feet a lot. Edema improved in am and with elevation. Depression stable and following with psychiatry. Review of Systems Respiratory: Negative for cough, shortness of breath and wheezing. Cardiovascular: Negative for chest pain and palpitations. Gastrointestinal: Negative for abdominal pain, diarrhea, nausea and vomiting. Genitourinary: Negative for dysuria. Objective Physical Exam Constitutional: General: She is not in acute distress. Appearance: Normal appearance. HENT: Head: Normocephalic. Right Ear: Tympanic membrane normal. Left Ear: Tympanic membrane normal. Eyes: Extraocular Movements: Extraocular movements intact. Pupils: Pupils are equal, round, and reactive to light. Cardiovascular: Rate and Rhythm: Normal rate and regular rhythm. Heart sounds: No murmur heard. No friction rub. No gallop. Pulmonary: Effort: Pulmonary effort is normal. Breath sounds: Normal breath sounds. No wheezing, rhonchi or rales. Abdominal: General: Bowel sounds are normal. There is no distension. Palpations: Abdomen is soft. Tenderness: There is no abdominal tenderness. There is no guarding or rebound. Musculoskeletal: Cervical back: Neck supple. Right lower leg: No edema. Left lower leg: No edema. Neurological: Mental Status: She is alert. Assessment/Plan Problem List Items Addressed This Visit Chronic allergic rhinitis due to pollen Symptoms stable with medication and continue. Autonomic dysfunction Continued symptoms and continue medication. Follow with cardiology as scheduled. MDD (major depressive disorder), recurrent episode, mild (HCC) (CMS/HCC) Symptoms stable and follow with psychiatry. Type 2 diabetes mellitus with hyperglycemia, without long-term current use of insulin ([facility]) - Primary Reports BS controlled and due for A1C. Stick to ADA diet and limit carbs. Relevant Medications sAXagliptin (Onglyza) 5 MG tablet Other Relevant Orders Hemoglobin A1c Gastroesophageal reflux disease No symptoms Moderate persistent asthma without complication ([facility]) Breathing stable with symbicort and continue. Use albuterol PRN. 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 Edema of both legs Edema stable and elevate legs PRN. Class 2 severe obesity due to excess calories with serious comorbidity and body mass index (BMI) of 37.0 to 37.9 in adult ([facility]) Weight loss indicated documented in this encounter [facility] 01-02-2024 Miscellaneous Notes Summary: Sample Medication Marni gave 3 Ajovy samples with a lot number of [id number] and expiration date of 07/2024. Please attach information to the patients chart. documented in this encounter [facility] 01-02-2024 Telephone encounter Note Summary: Sample Medication Marni gave 3 Ajovy samples with a lot number of [id number] and expiration date of 07/2024. Please attach information to the patients chart. [facility] 01-02-2024 History of Present illness Narrative Subjective: Patient ID: Leana Tran is a 38 y.o. female presenting for neurological evaluation. History of Present Illness: Leana Tran is followed regarding long-Covid symptoms. She tested positive for Covid-19 on October 27, 2020. She feels as though she has the start of dementia and MS. Her neurological symptoms include: Fatigue, Headaches, Dizziness, Brain Fog, Memory Problems, Word Finding, Paresthesias, Balance, Myalgia, Arthralgia, Anxiety, Depression and PTSD. Fatigue: She wakes up tired and has more and more fatigue as the day progresses. Her limbs feel heavy. Initially, she had to nap due to the fatigue. She tries to complete tasks, but will have to stop and rest. It takes her much longer to complete any household task due to the overwhelming fatigue. Headaches: She is a patient with [facility]. History of classic migraine with aura. She had nearly daily migraines prior to November 2020. She had 8 migraines last month. She has a history of pseudotumor Cerebri. She receives Botox injections about every 3 months (first one in November 2020) and this has helped with overall management. She does take Nurtec as needed with good results. Brain fog/Memory problems/Word Finding: She developed cognitive dysfunction with Covid-19. She misplaces items frequently and has difficulty finding them, even in an obvious place. She has some difficulty finishing sentences and thoughts. She has some word-finding issues. She will know what she is talking about, to the point she can describe it, but will be unable to retrieve the correct word. Her concentration and attention is impaired. Balance: Her balance is slowly improving. Initially, she used a walker for ambulation following her covid-19 infection. She has regained some strength, but continues to lack stamina. She feels unsteady, as though she is on a boat. She has been working with vestibular therapy twice a week. Muscle Weakness: She has some generalized weakness, worse on the right side. She is right hand dominant. She drops items not infrequently. She has difficulty opening bottles or other items. She feels as though her right leg does not work as well. She has to think about picking up her right leg when she walks. This does not necessarily improve with rest. She trips over her feet not infrequently. No diplopia. No ptosis. No difficulty chewing, swallowing, or eating. No sphincter control problems. Paresthesias: She has a tingling/burning sensation in both legs R>L. She does have low back pain, but no lumbar radicular symptoms. Her legs will sometimes give out on her when she is walking. Movement does not help. 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 This has not been evaluated in several years. Anxiety/Depression/PTSD: She has a history of anxiety, depression, and PTSD. Her moods have been worse since having Covid-19. She states that her moods have been almost back to what they were when her parents in 2018. At that time she was suicidal. She has been very emotional, anxious, and stressed. She is active with a psychiatrist (Dr. Thomas) and her medications have been adjusted. She has not worked with a therapist in a while. Migraine History: 09/2020: daily migraines 11/2020: daily migraines (started Botox) 2021: 06/2022: rare migraines (on Ajovy) 09/2022: 1-2 migraines/week, each lasting 2-3 days (off Ajovy) 12/2022: 1-2 migraines/month 12/2023: 1-2 hahn/week, 3-4 migraines/month (some lasting several days) Current Meds: Ajovy (hasn't had since 06/2022): Cymbalta 30 mg Januvia Lamictal 150 mg MTV Singulair Symbicort Synthroid Ubrelvy (works) Zoloft 50 mg Zonisamide 100 mg Zyrtec Previous Meds: ASA Ativan Botox for migraine (Did not resolve headaches) Celexa Diamox (cognitive dysfunction) Emgality (didn't work) Fioricet (did not help) Modafinil Nurtec (not effective) Prazosin Prozac Reglan Rizatriptan Spironolactone Sumatriptan (worsened migraines, vision loss) Tizanidine Topiramate (cognitive dysfunction) Toradol Trazodone Zoloft Testing: MRI brain (03/31/2016): No acute intracranial findings. Chronic left mastoid sinus opacification. No evidence of venous sinus thrombosis. MRA head/neck (03/31/2016): Unremarkable MRA brain and MRA neck. CT brain (11/14/2020): no acute intracranial process. MRI brain (03/14/2021): negative MRI thoracic (03/14/2021): There is a paraspinal cystic lesion without enhancement measuring 2.0 x 0.6 x 1.7 cm. No definite nerve root or intracanalicular involvement. Differential diagnosis includes neurenteric cyst, duplication cyst, or other benign lesions. Multilevel degenerative changes. Pertinent Medical History: Migraines Sleep apnea Sleep/Social History: She has sleep apnea and uses a CPAP. She is a restless sleeper and moves around a lot in her sleep. She generally goes to bed at about 10:30 PM. Sometimes it takes her hours to fall asleep. She wakes up several times a night. She usually gets up between 5-11 AM. She drinks green tea + 1 caffeinated soda a month. She does not drink alcohol regularly (1-2 drinks, 1-2 times a year). She does not smoke or use recreational drugs. She does not exercise regularly. She has three children (2004, 2005, and 2007). She had a hysterectomy. 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 Current Visit: Seen in December 2023, she presents for a follow up visit. She states that she has problems getting her medications refilled through the pharmacy. Apparently the pharmacy now special orders the Ajovy and it is often late. She states that the Ajovy seems to be wearing off after 2-3 weeks. She guesses that she has the start of a migraine at least twice a week. Ubrelvy works well for her migraines. It relieves it to the point that she is able to function. She also takes 200 mg Zonisamide each evening for nerve pain and headache prevention. 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 She does part-time days on weekends. She generally is sleeping better with a more consistent schedule. She is using a BiPAP. It irritates her lungs. She does not have to write herself notes as frequently. She has to keep her calendar up to date so she does not miss appointments. She is not having word finding issues as frequently. They tend to recur if she is overly tired. She takes 60 mg Cymbalta nightly. This helps with her moods and pain. She is now taking 10 -15 mg baclofen nightly. It is helping with her muscle tightness. The following portions of the patient's history were reviewed and updated as appropriate: allergies, current medications, past family history, past medical history, past social history, past surgical history and problem list. Review of Systems Constitutional: Negative for activity change, appetite change, chills, diaphoresis, fatigue and fever. HENT: Negative for ear pain, facial swelling, hearing loss, tinnitus, trouble swallowing and voice change. Eyes: Negative for photophobia, pain, redness and visual disturbance. Respiratory: Negative. Cardiovascular: Negative. Gastrointestinal: Negative for diarrhea, nausea and vomiting. Endocrine: Negative. Genitourinary: Negative for difficulty urinating, dysuria and urgency. Musculoskeletal: Negative for arthralgias, back pain, gait problem, joint swelling and neck pain. Skin: Negative. Allergic/Immunologic: Negative. Neurological: Positive for weakness and headaches. Negative for dizziness, tremors, seizures, syncope, facial asymmetry, speech difficulty, light-headedness and numbness. Hematological: Negative. Psychiatric/Behavioral: Negative for agitation, behavioral problems, confusion, decreased concentration, dysphoric mood, hallucinations, self-injury, sleep disturbance and suicidal ideas. The patient is not nervous/anxious and is not hyperactive. Past Medical History: Diagnosis Date Allergic 1990 Allergic rhinitis 1990 Anxiety Asthma Back pain 1995 Bradycardia Chest pain Clotting disorder ([facility]) 1984 COVID Depression Diabetes mellitus ([facility]) Diabetes mellitus type 2, controlled ([facility]) Eczema 2006 Elevated troponin [...] SINUS SURGERY TUBAL LIGATION UMBILICAL HERNIA REPAIR Allergies Allergen Reactions Cefaclor Anaphylaxis, Swelling and Shortness Of Breath Other reaction(s): Unknown Clindamycin Rash, Shortness Of Breath and Swelling Erythromycin Shortness Of Breath and Swelling Eucalyptus Anaphylaxis Iodides Anaphylaxis Iodinated Contrast Media Anaphylaxis Other reaction(s): Unknown Does not tolerate with pre-medication Lavender (Lavandula Angustifolia) Anaphylaxis Sulfa (Sulfonamide Antibiotics) Shortness Of Breath Sulfamethoxazole-Trimethoprim Other (See Comments) Cant breathe Valtrex [Valacyclovir] Anaphylaxis Zolpidem Other (See Comments) Uncontrolable limb movements Fish Containing Products Hives Ibuprofen Rash Due to clotting disorder-Aleve Shellfish Derived Hives Aloe Vera Latex Gloves [Gloves, Latex With Aloe Vera] Other reaction(s): Unknown Bupropion Other (See Comments) Reports like seizure activity and the fall asleep Drospirenone-Ethinyl Estradiol Makers her asthma flair up Other reaction(s): Other: See Comments Skin discoloration of feet with OCPs Gatifloxacin Diarrhea Menthol Hives Metronidazole Norethindrone Ac-Eth Estradiol Chest hurt and legs turned black -- saw Dr. Abiel London Sulfamethoxazole Other reaction(s): Unknown Aspirin Rash Latex, Natural Rubber Swelling, Itching and Rash Skin cracks and bleeds Levofloxacin Rash Penicillins Itching and Rash Povidone-Iodine Rash Rofecoxib Rash Social History Socioeconomic History Marital status: Spouse name: Not on file Number of children: Not on file Years of education: Not on file Highest education level: Not on file Occupational History Not on file Tobacco Use Smoking status: Never Smokeless tobacco: Never Vaping Use Vaping status: Never Used Substance and Sexual Activity Alcohol use: Not Currently Drug use: Never Sexual activity: Yes Partners: Male control/protection: Surgical Other Topics Concern Caffeine Use Yes Social History Narrative Not on file Social Drivers of Health Financial Resource Strain: Medium Risk (04/08/2023) Received from [facility] Overall Financial Resource Strain (CARDIA) Difficulty of Paying Living Expenses: Somewhat hard Food Insecurity: No Food Insecurity (11/22/2023) Hunger Screening Food Insecurity - Worry: Never True Food Insecurity - Inability: Never True Transportation Needs: No Transportation Needs (04/08/2023) Received from [facility] PRAPARE - Transportation Lack of Transportation (Medical): No Lack of Transportation (Non-Medical): No Physical Activity: Insufficiently Active (04/08/2023) Received from [facility] Exercise Vital Sign Days of Exercise per Week: 4 days Minutes of Exercise per Session: 20 min Stress: No Stress Concern Present (04/08/2023) Received from [facility] [place] [employer] - Occupational Stress Questionnaire Feeling of Stress : Only a little Social Connections: Unknown (04/08/2023) Received from [facility] Social Connection and Isolation Panel [NHANES] Frequency of Communication with Friends and Family: More than three times a week Frequency of Social Gatherings with Friends and Family: Once a week Attends Nondenominational Services: Patient declined Active Member of Clubs or Organizations: Patient declined Attends Club or Organization Meetings: Patient declined Marital Status: Interpersonal Safety: Not At Risk (01/10/2023) [facility] Humiliation, Afraid, Rape, and Kick questionnaire Fear of Current or Ex-Partner: No Emotionally Abused: No Physically Abused: No Sexually Abused: No Housing Instability: Patient Declined (04/08/2023) [facility] from [facility] Housing Stability Vital Sign Unable to Pay for Housing in the Last Year: Patient declined Number of Places Lived in the Last Year: 1 Unstable Housing in the Last Year: Patient declined Family History Problem Relation Age of Onset Heart attack Mother Diabetes Mother Hyperlipidemia Mother Hypertension Mother Stroke Mother Brain Tumor Mother Asthma Mother COPD Mother Depression Mother Early Mother Heart disease Mother Kidney disease Mother Mental illness Mother Heart attack Father Diabetes Father Hypertension Father COPD Father Early Father Heart disease Father Hyperlipidemia Father Vision loss Father Diabetes Sister Hypertension Sister Diabetes Sister Vision loss Sister Diabetes Sister Hypertension Sister Current Outpatient Medications on File Prior to Visit Medication Sig albuterol (PROVENTIL HFA;VENTOLIN HFA) 90 mcg/actuation inhaler as needed. azelastine (ASTELIN) 137 mcg (0.1 %) nasal spray SPRAY 1 SPRAY INTO EACH NOSTRIL IN THE MORNING AND BEFORE BEDTIME DIRECTED baclofen (LIORESAL) 10 mg tablet TAKE 1 TO 2 TABLETS BY MOUTH NIGHTLY cholecalciferol, vitamin D3, (VITAMIN D3 ORAL) Take 1 capsule by mouth. cyanocobalamin (VITAMIN B12) 1,000 mcg tablet, sublingual Place 1 tablet (1,000 mcg total) under the tongue in the morning. diphenhydrAMINE (BENADRYL) 25 mg capsule Take by mouth every 6 (six) hours as needed. DULoxetine (CYMBALTA) 60 mg capsule Take 1 capsule (60 mg total) by mouth nightly. EPINEPHrine (EPIPEN) 0.3 mg/0.3 mL auto-injector INJECT 0.3 MLS INTO THE MUSCLE ONCE NEEDED (SEVERE ALLERGIC REACTION) fluticasone (VERAMYST) 27.5 mcg/actuation nasal spray Administer 2 sprays into each nostril once daily. frerose marieumab-vfrm (AJOVY 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) 225 mg/1.5 mL INJECT 1.5 ML (225 MG TOTAL) UNDER THE SKIN EVERY 28 DAYS. lamoTRIgine (LaMICtal) 150 mg tablet Take 1 tablet (150 mg total) by mouth once daily at bedtime. levocetirizine (XYZAL) 5 mg tablet Take 1 tablet (5 mg total) by mouth every evening. liothyronine (CYTOMEL) 5 MCG tablet Take 1 tablet (5 mcg total) by mouth in the morning. magnesium gluconate (MAGONATE) 500 mg tablet tablet Take 27 mg by mouth in the morning and 27 mg before bedtime. 600 mg. montelukast (SINGULAIR) 10 mg tablet Take 1 tablet (10 mg total) by mouth in the morning. ondansetron ODT (ZOFRAN ODT) 4 mg disintegrating tablet 1 (ONE) TABLET BY MOUTH EVERY SIX HOURS, NEEDED pantoprazole (PROTONIX) 40 mg EC tablet Take by mouth daily. sertraline (ZOLOFT) 100 mg tablet Take 0.5 tablets (50 mg total) by mouth in the morning. SITagliptin (JANUVIA) 100 mg tablet Take 1 tablet (100 mg total) by mouth in the morning. Only when sugar is over 140. SYMBICORT 160-4.5 mcg/actuation inhaler TAKE 2 PUFFS BY MOUTH TWICE A DAY SYNTHROID 100 mcg tablet TAKE 1 TABLET (100 MCG TOTAL) BY MOUTH IN THE MORNING UBRELVY 100 mg tablet Take 100 mg by mouth once as needed (migraine) for up to 1 dose. zonisamide (ZONEGRAN) 100 mg capsule TAKE 2 CAPSULES (200 MG TOTAL) BY MOUTH IN THE MORNING. magnesium 250 mg tablet Take 1 tablet (250 mg total) by mouth. (Patient not taking: Reported on 01/02/2024) rimegepant (NURTEC ODT) 75 mg tablet,disintegrating Dissolve 1 tablet on tongue as needed (migraine). (Patient not taking: Reported on 01/02/2024) No current facility-administered medications on file prior to visit. OARRS was reviewed by D[facility]. Objective: BP 127/77 Pulse 79 Ht 162.6 cm (5' 4 ) Wt 100.7 kg (222 lb) BMI 38.11 kg/m Physical Exam: Mental Status: Orientation: Oriented to person, place and time. March 02, 2021, no idea what day of the week it is. [facility] [place]. Level of consciousness: alert. Knowledge: good and consistent with education. Intact short-term memory and intact long-term memory. Vocabulary is normal. 01/11/41=no idea 10/16/2000= the twin towers in [place] fell down because a plane hit them. . Memory: Appears normal. 16+18=34. Attention span is normal. Concentration is normal. Speech: Normal quality, patient has normal vocabulary and patient exhibits paucity of speech. Language: Normal. Comprehension intact. Some slowness in responses. . Cranial Nerves: CN I: Intact CN II: Visual olivares full to confrontation. CN II - Visual Acuity: Normal in right eye and left eye. Optic Discs: No pallor/atrophy on right or left. No edema on right or left. CN III, IV, : CN III: PERRLA, EOM full, no nystagmus, no ptosis and no JOSE. Pupil Size: right = left. CN V: Facial sensation intact to pin. CN VII: Facial expression fully symmetric. CN VIII: CN VIII normal. CN IX, X: CN IX and X normal. CN XI: CN XI normal. CN XII: CN XII normal. Motor: Muscle Bulk: Normal. Muscle Tone: Normal. Power: Pronator drift: None. Bradykinesia: None. Muscle Strength: Right foot dorsiflexors: 4/5 Left foot dorsiflexors: 4/5 Right folder seamer strength: WeakMild generalized weakness Fasciculations: None Myotonia: No myotonia. Sensory: Light touch normal in upper and lower extremities. Vibration normal in upper and lower extremities. Proprioception: Normal in upper and lower extremities. Pinprick normal in upper and lower extremities. Gait/Coord/DTR: Abnormal Gait: unsteady and abnormal gait (hesitant and careful while walking). Unable to tandem walk, unable to heel walk on right, unable to heel walk on left, and . Coordination: Balance is poor. Romberg's sign: sways with eyes closed. Finger to nose abnormal on right. Finger to nose abnormal on left. Tremor: Absent. Involuntary Movements: no abnormal movement. Myoclonus: None. Reflexes: Right brachioradialis 2+ Left brachioradialis 2+ Right biceps 2+ Left biceps 2+ Right triceps 2+ Left triceps 2+ Right patellar 2+ Left patellar 2+ Right achilles 2+ Left achilles 2+ Right plantar downgoing Left plantar downgonig Right [place] reflex absent and left [place] reflex absent Right ankle clonus absent and left ankle clonus absent. General Exam: Constitutional: Well-developed, well-nourished . Eyes: Normal appearance, no icterus. Neck: Normal appearance, normal range of motion, supple, right cervical compression test positive and left cervical compression test positive. Cardiovascular: Normal rate, regular rhythm, strong right carotid upstroke, strong left carotid upstroke, intact right distal pulses and intact left distal pulses. Cardiovascular: no right carotid bruit, no left carotid bruit, superficial temporal artery nontender on right, superficial temporal artery nontender on left, no right edema and no left edema. Skin: Warm and dry Psychiatric: Normal mood/affect, good eye contact, behaving normally, normal thought content, normal judgment and normal psychomotor. Pulmonary: Effort: Pulmonary effort is normal. Assessment/Plan: 01/02/2024 OV: Seen in December 2023, she presents for a follow up visit. She states that she has problems getting her medications refilled through the pharmacy. Apparently the pharmacy now special orders the Ajovy and it is often late. She states that the Ajovy seems to be wearing off after 2-3 weeks. She guesses that she has the start of a migraine at least twice a week. Ubrelvy works well for her migraines. It relieves it to the point that she is able to function. She also takes 200 mg Zonisamide each evening for nerve pain and headache prevention. 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 She does part-time days on weekends. She generally is sleeping better with a more consistent schedule. She is using a BiPAP. It irritates her lungs. She does not have to write herself notes as frequently. She has to keep her calendar up to date so she does not miss appointments. She is not having word finding issues as frequently. They tend to recur if she is overly tired. She takes 60 mg Cymbalta nightly. This helps with her moods and pain. She is now taking 10 -15 mg baclofen nightly. It is helping with her muscle tightness. 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 Leana has been screened for clinical depression and the following plan(s) are recommended: patient follow-up to return when and if necessary. SUGGEST: #1. Good sleep hygiene. Go to bed and get up at the same time every day. Turn off electronics an hour before bedtime. Try relaxation techniques such as deep breathing exercises, yoga, or guided meditation for 20-30 minutes before bed. Sleep for 7-9 hours uninterrupted each night. Get up each morning and exercise. Start with whatever amount of time you can tolerate and increase up to 30 minutes. When that is easy, increase the intensity. Limit caffeine to the mornings only. #2. Stay well-hydrated. You should drink at least 110 ounces of water daily (unless otherwise limited by another provider). More if it is hot, you are active, or if you are consuming caffeine or alcohol. #3. Continue exercises learned at Physical Therapy to loosen neck and shoulder muscles. -- Use Icy Hot, Biofreeze, Salon Pas patches, etc to neck and shoulder muscles to loosen muscles. Then massage with tennis or lacrosse ball to get knots out. #4. Continue exercises learned at Speech therapy for cognitive treatment. #5. Let your body dictate your activity. If symptoms worsen, back off of your activity. It can take months for your brain to heal from long covid. Minimize external stimuli as much as possible and limit screen time. It is important to listen to your body and let it dictate what you are able to do. Some sort of low-impact physical activity (stationary bicycle, walking) is recommended. You should not get your heart rate up or be short of breath while doing this. You should do 20-30 minutes of this activity daily. #6. Baclofen 10 mg tablets. Start with 1/2 tablet at bedtime for muscle relaxation. You can increase to 1, 1.5, or 2 tablets if tolerated without drowsiness the next morning. #7. Ajovy 225 mg/1.5 ml injector pen. Inject 3 injector pen subcutaneously every 12 weeks (84 days) for migraine prevention. You should not get while taking Ajovy because there is no data to support its safety. Ajovy should be stopped 5-6 months prior to trying to conceive. #8. Zonisamide 100 mg capsules. Take 2 capsules daily with your evening meal for migraine prevention and nerve pain. This can cause numbness & tingling in your hands, feet, and lips, word finding difficulties or other cognitive dysfunction. Call the office at [phone] or send a Needl message if you develop any of these problems. #9. Ubrelvy 100 mg tablets. Take 1 tablet at the onset of a headache. You can repeat this once 2 hours later. Do not take more than 2 doses in 24-hours[place] [id number] to activate co-pay card. #10. Return for follow-up in 6 months, earlier if needed. Total time spent was 20 minutes: Preparing to see the patient (e.g., review of tests) Obtaining and/or reviewing separately obtained history Performing a medically appropriate examination and/or evaluation Counseling and educating the patient/family/caregiver Ordering medications, tests, or procedures Referring and communicating with other health rn long term care (not separately reported) Documenting clinical information in the electronic or other health record Independently interpreting results (not separately reported) and communicating results to the patient/family/caregiver Care coordination (not separately reported) - Marni Flowers DNP, APRN-CNP 01/02/24 10:34 AM DEX [place] 01/02/24 [id number] documented in this encounter [facility] 01-02-2024 Instructions DEX Oleary - 01/02/2024 10:30 AM EST #1. Good sleep hygiene. Go to bed and get up at the same time every day. Turn off electronics an hour before bedtime. Try relaxation techniques such as deep breathing exercises, yoga, or guided meditation for 20-30 minutes before bed. Sleep for 7-9 hours uninterrupted each night. Get up each morning and exercise. Start with whatever amount of time you can tolerate and increase up to 30 minutes. When that is easy, increase the intensity. Limit caffeine to the mornings only. #2. Stay well-hydrated. You should drink at least 110 ounces of water daily (unless otherwise limited by another provider). More if it is hot, you are active, or if you are consuming caffeine or alcohol. #3. Continue exercises learned at Physical Therapy to loosen neck and shoulder muscles. -- Use Icy Hot, Biofreeze, Salon Pas patches, etc to neck and shoulder muscles to loosen muscles. Then massage with tennis or lacrosse ball to get knots out. #4. Continue exercises learned at Speech therapy for cognitive treatment. #5. Let your body dictate your activity. If symptoms worsen, back off of your activity. It can take months for your brain to heal from long covid. Minimize external stimuli as much as possible and limit screen time. It is important to listen to your body and let it dictate what you are able to do. Some sort of low-impact physical activity (stationary bicycle, walking) is recommended. You should not get your heart rate up or be short of breath while doing this. You should do 20-30 minutes of this activity daily. #6. Baclofen 10 mg tablets. Start with 1/2 tablet at bedtime for muscle relaxation. You can increase to 1, 1.5, or 2 tablets if tolerated without drowsiness the next morning. #7. Ajovy 225 mg/1.5 ml injector pen. Inject 3 injector pen subcutaneously every 12 weeks (84 days) for migraine prevention. You should not get while taking Ajovy because there is no data to support its safety. Ajovy should be stopped 5-6 months prior to trying to conceive. #8. Zonisamide 100 mg capsules. Take 2 capsules daily with your evening meal for migraine prevention and nerve pain. This can cause numbness & tingling in your hands, feet, and lips, word finding difficulties or other cognitive dysfunction. Call the office at [phone] or send a Needl message if you develop any of these problems. #9. Ubrelvy 100 mg tablets. Take 1 tablet at the onset of a headache. You can repeat this once 2 hours later. Do not take more than 2 doses in 24-[place] [id number] [place] co-pay card. #10. Return for follow-up in 6 months, earlier if needed. documented in this encounter [facility] 12-06-2023 Miscellaneous Notes Summary: Med refill request Jefry Douglas encounter. Pat documented in this encounter [facility] 12-06-2023 Telephone encounter Note Summary: Med refill request Jefry Douglas. Pat [facility] 11-22-2023 History of Present illness Narrative REASON [...] Rfl: fremanezumab-vfrm (AJOVY 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) 225 mg/1.5 mL, INJECT 1.5 ML [...] pain 1995 Bradycardia Chest pain Clotting disorder ([facility]) 1984 COVID Depression Diabetes mellitus ([facility]) Diabetes mellitus type 2, controlled ([facility]) Eczema 2006 Elevated troponin [...] CLINIC: 1 year documented in this encounter [employer] 11-20-2023 History of Present illness Narrative Reason [...] Diagnosis Date Noted PTSD (post-traumatic stress disorder) ([facility]) 12/24/2020 Allergic reaction to contrast dye 07/25/2021 Chronic allergic rhinitis due to pollen 12/22/2015 Anxiety 03/02/2021 Arachnoid cyst of pituitary gland 04/07/2015 Aspirin allergy 02/10/2021 Autonomic dysfunction 02/10/2021 Bleeding disorder ([facility]) 02/23/2014 Symptomatic bradycardia 12/24/2020 Cervicalgia 03/02/2021 Depression ([facility]) 12/24/2020 Type 2 diabetes mellitus with hyperglycemia, without long-term current use of insulin ([facility]) 12/24/2020 Diffuse pain 08/23/2021 Adverse food reaction 07/25/2021 Dyspareunia in female 01/12/2023 Gastroesophageal reflux disease 12/22/2015 Gross hematuria 01/12/2023 Hearing loss 12/22/2015 History of hysterectomy 02/10/2021 Hyperlipidemia ([facility]) 12/22/2015 Irritable bowel syndrome 12/22/2015 Memory difficulties 03/02/2021 Migraine without aura and without status migrainosus, not intractable ([facility]) 12/24/2020 Moderate persistent asthma without complication ([facility]) 07/25/2021 KATELIN (obstructive sleep apnea) 12/24/2020 Ovarian cyst 01/12/2023 Palpitations 10/20/2021 Decreased activity tolerance 08/23/2021 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 03/02/2021 Primary hypothyroidism ([facility]) 12/22/2015 Qualitative platelet disorder ([facility]) 04/03/2022 Right inguinal hernia 01/12/2023 Screening for [...] 12/22/2015 Adenovirus infection 01/10/2022 Exacerbation of asthma ([facility]) 01/08/2022 Asthma ([facility]) 12/22/2015 Blood pressure instability 05/24/2021 Chest pain 12/24/2020 Drug reaction 07/25/2021 Generalized headache 12/22/2015 Hypersomnia with sleep apnea 03/02/2021 Orthostatic intolerance 08/23/2021 Orthostatic lightheadedness 05/24/2021 RSV (respiratory syncytial virus infection) 01/10/2022 Stress incontinence 01/12/2023 Syncope and collapse 05/24/2022 Acute non-recurrent pansinusitis 04/09/2023 Past Medical History: Diagnosis Date Abdominal pain, generalized Abnormality of plasma protein, unspecified Anxiety and depression ([facility]) Arachnoid cyst Celiac disease ([facility]) Chronic sinusitis Deaf, right Edema, peripheral Hernia, abdominal Herpes zoster without complication History of cardiac monitoring History of thyroid nodule Hormone imbalance Hot flashes due to surgical menopause Hypothyroid ([facility]) Insomnia, persistent Medication reaction Metabolic syndrome Mild persistent asthma without complication ([facility]) Myoclonic jerking, massive Paresthesia Post-COVID syndrome POTS (postural orthostatic tachycardia syndrome) Seasonal allergic rhinitis due to pollen Urinary hesitancy HISTORY PAST MEDICAL HISTORY SOCIAL HISTORY Past Medical History: Diagnosis Date Abdominal pain, generalized Abnormality of plasma protein, unspecified deficiency (easy bleeder) Anxiety and depression ([facility]) Arachnoid cyst in brain (2015) Asthma (CMS/HCC) Celiac disease ([facility]) Chronic sinusitis Deaf, right Depression ([facility]) Dyspareunia in female Edema, peripheral Gastroesophageal reflux [...] hyperglycemia, without long-term current use of insulin ([facility]) Urinary hesitancy Vitamin D deficiency Social History [...] Procedure Laterality Date APPENDECTOMY 2012 SECTION, CLASSIC 2007 BTL MR ANGIOGRAM HEAD WO IV CONTRAST 03/31/2016 MR ANGIOGRAM HEAD WO IV CONTRAST OTHER SURGICAL HISTORY 2013 uterine ablation GA LAP,CHOLECYSTECTOMY 2009 GA LAPAROSCOPY W/LYSIS OF ADHESIONS 2010 SALPINGECTOMY Bilateral [...] nursing note reviewed. Exam conducted with a bun icer present. Vitals: Estimated body mass index is 38.11 kg/m as calculated from the following: Height as of 11/07/23: 5' 4 . Weight as of this [...] Rubens Tim DO documented in this encounter [facility] 11-07-2023 History of Present illness Narrative Leana [...] speak during these episodes. She works in [employer] at [employer]. She was blue and her co-workers [...] up in the speech therapy Clinic in [facility]. As she has a history of sexual [...] Symbicort with spacer. Add Spiriva [facility] in [place]. Technique. We agreed she would use Symbicort [...] and skin testing. documented in this encounter [facility] 10-23-2023 History of Present illness Narrative The patient needs a letter stating she requires a medical exception from the influenza vaccination due to a history of anaphylactic reactions to vaccines. 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 Hx Cesar autoimmune thyroid disease, celiac disease. 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 Chief Complaint: OI/ syncope. ILR Only a few episodes of near syncope since seen, blackouts . 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 High fasting glucose. May [...] Telehealth Visit: 10/10/2023 The visit was conducted [id number]-[id number] with the use of audio and video technology using HIPAA approved y primeEX between patient and the provider for a [...] Unable to get long acting preparation. 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 2. Syncope. Chronic. Stable. No syncope. Presyncope. Improved with day shift. 3. ILR. Chronic. Stable. No arrhythmia. Device with good function. Macrina Wadsworth APRN PhD [facility] Nurse Practitioner Division of Cardiovascular Medicine [facility]. [facility] 10-10-2023 History of Present illness Narrative Associated Problem(s): Type 2 diabetes mellitus with hyperglycemia, without long-term current use of insulin ([facility]) Reports BS controlled and A1C 5.6. Stick to ADA diet and limit carbs. Insulin elevated and stop januvia. Start ozempic. Associated Problem(s): Moderate persistent asthma without complication ([facility]) Breathing stable with symbicort and continue. Use albuterol PRN. Associated Problem(s): Edema of both legs Edema stable and elevate legs PRN. Associated Problem(s): Chronic uqsu-PFCFX-85 syndrome No change in symptoms and monitor. Associated Problem(s): Chronic allergic rhinitis due to pollen Symptoms stable with medication and continue. Images from the original note were not included. Subjective Patient ID: Leana Tran is a 37 y.o. female who presents for Follow-up (6 m). Follow up DM, post-covid, asthma, allergies, and edema. Patient stable today. Reports BS controlled around 110 and recent A1C 5.6. Tries to eat well and stick to ADA diet. Denies signs of elevated BS such as polyuria, polyphagia or polydipsia. Post-covid symptoms unchanged. Continues to have severe fatigue. Not able to do things around house or complete ADLs without frequent breaks. Still brain fog and loses train of thought. Frequent palpitations and heart racing. Feels lightheaded and off balance with activity. Following with cardiology. Asthma stable. Mild cough and SOB with exertion. No chest tightness or pressure. Using symbicort daily and albuterol PRN which helps. Allergies controlled with medication. No congestion or rhinorrhea. No HAHN or sinus pressure. Ears not plugged or popping. Edema stable without medication. Mild swelling at end of day and if on feet a lot. Edema improved in am and with elevation. Review of Systems Respiratory: Negative for cough, shortness of breath and wheezing. Cardiovascular: Negative for chest pain and palpitations. Gastrointestinal: Negative for abdominal pain, diarrhea, nausea and vomiting. Genitourinary: Negative for dysuria. Objective Physical Exam Constitutional: General: She is not in acute distress. Appearance: Normal appearance. HENT: Head: Normocephalic. Right Ear: Tympanic membrane normal. Left Ear: Tympanic membrane normal. Eyes: Extraocular Movements: Extraocular movements intact. Pupils: Pupils are equal, round, and reactive to light. Cardiovascular: Rate and Rhythm: Normal rate and regular rhythm. Heart sounds: No murmur heard. No friction rub. No gallop. Pulmonary: Effort: Pulmonary effort is normal. Breath sounds: Normal breath sounds. No wheezing, rhonchi or rales. Abdominal: General: Bowel sounds are normal. There is no distension. Palpations: Abdomen is soft. Tenderness: There is no abdominal tenderness. There is no guarding or rebound. Musculoskeletal: Cervical back: Neck supple. Right lower leg: No edema. Left lower leg: No edema. Neurological: Mental Status: She is alert. Assessment/Plan Problem List Items Addressed This Visit Chronic allergic rhinitis due to pollen Symptoms stable with medication and continue. Type 2 diabetes mellitus with hyperglycemia, without long-term current use of insulin (CMS/HCC) - Primary Reports BS controlled and A1C 5.6. Stick to ADA diet and limit carbs. Insulin elevated and stop januvia. Start ozempic. Relevant Medications semaglutide (Ozempic, 0.25 or 0.5 MG/DOSE,) 2 MG/1.5ML solution pen-injector Moderate persistent asthma without complication (CMS/HCC) Breathing stable with symbicort and continue. Use albuterol PRN. Chronic rpgg-NHVYH-15 syndrome No change in symptoms and monitor. Edema of both legs Edema stable and elevate legs PRN. documented in this encounter [facility] 10-04-2023 Note Patient Education Nephrology Dietary Guidelines [...] ? 8 oz (237 mL) of milk, urazdpb-bngpcpbhlrsd-pchnb milk, and calcium-fortifiedfruit juice. Calcium-fortified means that [...] Spinach (cooked), rhubarb, beets, sweet potatoes, and Trinidadian chard. ? Peanuts. ? Potato chips, turkmen fries, and baked potatoes with skin on. ? Nuts and nut products. ? Chocolate. ? If you regularly take a diuretic medicine, make sure to eat at least 1 or 2 servings of fruits or vegetables that are high in potassium each day. These include: ? Avocado. ? Banana. ? Zavala, prune, carrot, or tomato juice. ? Baked [...] fish oil, or vitamin B6. ? Take uosd-gef-ukhkfvo and prescription medicines only as told by your health care provider. These include suppleme (more content not included)... [facility] 10-01-2023 Instructions Fuentes Amaral MD - 10/01/2023 10:04 AM EDT Continue Amicar prior to dental extraction FFP for major surgery. RTC in 12 months - cbc, cmp documented in this encounter [facility] 10-01-2023 History of Present illness Narrative Images from the original note were not included. 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 No date: REMOVAL GALLBLADDER No date: TUBAL LIGATION HX Social History Tobacco Use Smoking status: Never Passive exposure: Past Smokeless tobacco: Never Vaping Use Vaping status: Never Used Substance Use Topics Alcohol use: Not Currently Drug use: Not Currently FAMILY HISTORY Problem Relation Age of Onset Diabetes Mother uncontrolled Hypertension Mother Heart Attack Mother First MD at age 51 Cardiomyopathy Mother at age [...] which included preparing to see the patient, wkko-ws-[id number] patient care, completing clinical documentation, performing a medically appropriate examination, ordering medications, tests, or procedures, and communicating results to the patient/family/caregiver. Fuentes Amaral MD, CPE Hematology and Oncology Services Provided at: [place], [place] Scribe Attestation: This note was scribed [...] Cronin documented in this encounter [facility] 10-01-2023 Note HNO ID: [id number] Author: FUENTES AMARAL MD Service: ? Author Type: Physician Type: Progress Notes Filed: 10/03/2023 07:47 Note Text: NAME: Leana Tran [facility] NO.: [id number] DATE OF SERVICE: October 01, 2023 ([place]) [...] needed to us (more content not included)... [facility] 09-26-2023 History of Present illness Narrative Associated Problem(s): Allergic reaction Recent reaction and improved with treatment. Reactions getting worse and refer to die machine operator. Images from the original note were not included. Subjective Patient ID: Leana Tran is a 37 y.o. female who presents for Follow-up (Er f/up allergic reaction). ER follow up from 09/21 for allergic reaction. 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 She went out of the room and when returned the Dula was putting lotion on patient's legs. As soon as entered room developed hives. After few seconds started to feel itchy throat and SOB. Asked Dulmegan what was in lotion but wouldn't let her see it. After few minutes started to feel increased SOB and facial swelling. Used own epipen and taken to ER. Given steroids and discharged. Doing well today and no further rash or hives. Patient concerned of allergic reactions and faster symptom onset. Requests referral to die machine operator. Review of Systems Respiratory: Negative for cough, shortness of breath and wheezing. Cardiovascular: Negative for chest pain and palpitations. Gastrointestinal: Negative for abdominal pain, diarrhea, nausea and vomiting. Genitourinary: Negative for dysuria. Objective Physical Exam Constitutional: General: She is not in acute distress. Appearance: Normal appearance. HENT: Head: Normocephalic. Right Ear: Tympanic membrane normal. Left Ear: Tympanic membrane normal. Eyes: Extraocular Movements: Extraocular movements intact. Pupils: Pupils are equal, round, and reactive to light. Cardiovascular: Rate and Rhythm: Normal rate and regular rhythm. Heart sounds: No murmur heard. No friction rub. No gallop. Pulmonary: Effort: Pulmonary effort is normal. Breath sounds: Normal breath sounds. No wheezing, rhonchi or rales. Abdominal: General: Bowel sounds are normal. There is no distension. Palpations: Abdomen is soft. Tenderness: There is no abdominal tenderness. There is no guarding or rebound. Musculoskeletal: Cervical back: Neck supple. Right lower leg: No edema. Left lower leg: No edema. Neurological: Mental Status: She is alert. Assessment/Plan Problem List Items Addressed This Visit Allergic reaction - Primary Recent reaction and improved with treatment. Reactions getting worse and refer to die machine operator. Relevant Orders Ambulatory referral to Allergy documented in this encounter [facility] 07-05-2023 History of Present illness Narrative Subjective: Patient ID: Leana Tran is a 37 y.o. female presenting for neurological evaluation. History of Present Illness: Leana Tran is followed regarding long-Covid symptoms. She tested positive for Covid-19 on October 27, 2020. She feels as though she has the start of dementia and MS. Her neurological symptoms include: Fatigue, Headaches, Dizziness, Brain Fog, Memory Problems, Word Finding, Paresthesias, Balance, Myalgia, Arthralgia, Anxiety, Depression and PTSD. Fatigue: She wakes up tired and has more and more fatigue as the day progresses. Her limbs feel heavy. Initially, she had to nap due to the fatigue. She tries to complete tasks, but will have to stop and rest. It takes her much longer to complete any household task due to the overwhelming fatigue. Headaches: She is a patient with [facility] Neurology. History of classic migraine with aura. She had nearly daily migraines prior to November 2020. She had 8 migraines last month. She has a history of pseudotumor Cerebri. She receives Botox injections about every 3 months (first one in November 2020) and this has helped with overall management. She does take Nurtec as needed with good results. Brain fog/Memory problems/Word Finding: She developed cognitive dysfunction with Covid-19. She misplaces items frequently and has difficulty finding them, even in an obvious place. She has some difficulty finishing sentences and thoughts. She has some word-finding issues. She will know what she is talking about, to the point she can describe it, but will be unable to retrieve the correct word. Her concentration and attention is impaired. Balance: Her balance is slowly improving. Initially, she used a walker for ambulation following her covid-19 infection. She has regained some strength, but continues to lack stamina. She feels unsteady, as though she is on a boat. She has been working with vestibular therapy twice a week. Muscle Weakness: She has some generalized weakness, worse on the right side. She is right hand dominant. She drops items not infrequently. She has difficulty opening bottles or other items. She feels as though her right leg does not work as well. She has to think about picking up her right leg when she walks. This does not necessarily improve with rest. She trips over her feet not infrequently. No diplopia. No ptosis. No difficulty chewing, swallowing, or eating. No sphincter control problems. Paresthesias: She has a tingling/burning sensation in both legs R>L. She does have low back pain, but no lumbar radicular symptoms. Her legs will sometimes give out on her when she is walking. Movement does not help. 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 This has not been evaluated in several years. Anxiety/Depression/PTSD: She has a history of anxiety, depression, and PTSD. Her moods have been worse since having Covid-19. She states that her moods have been almost back to what they were when her parents in 2018. At that time she was suicidal. She has been very emotional, anxious, and stressed. She is active with a psychiatrist (Dr. Thomas) and her medications have been adjusted. She has not worked with a therapist in a while. Migraine History: 09/2020: daily migraines 11/2020: daily migraines (started Botox) 2021: 06/2022: rare migraines (on Ajovy) 09/2022: 1-2 migraines/week, each lasting 2-3 days (off Ajovy) 12/2022: 1-2 migraines/month Current Meds: Ajovy (hasn't had since 06/2022): Cymbalta 30 mg Januvia Lamictal 150 mg MTV Singulair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 sour taste in mouth. Verbalized collection teller is concerned GERD is contributing to frequent lung infections. Reports EGD greater than 10 years ago with gastric ulcer and H.pylori infection. History of Present Illness 37 yo female with h/o DMII, asthma, hypothyroidism, KATELIN, anxiety/depression; referred for worsening GERD; patient reports frequent bloating and epigastric pain radiating into chest, some regurgitation; no dysphagia; sees a Pit Operator that feels her frequent lung infections [...] 50 mcg/inh madeline (more content not included)... [facility] Comment on above: Result Comment: Elec tronically Signed By: MARLON PEREZ, Tesfaye Richard\Date and Time Signed: 01/04/23 11:41 EST 10-02-2022 Instructions Fuentes Amaral MD - 10/02/2022 9:51 AM EDT Continue Amicar prior to dentist appointment. RTC in 12 months - cbc, cmp documented in this encounter [facility] 10-02-2022 History of Present illness Narrative Images from the original note were not included. 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 Fuentes Amaral MD, CPE Hematology and Oncology Services Provided at: [place], [place] CC: Cas Cronin documented in this encounter [facility] 09-05-2022 Hospital Discharge instructions Patient Education 09/05/2022 09:06:17 Kidney Stones, Hcws-rd-Ivfa Kidney Stones Kidney stones are rock-like masses [...] Follow these instructions at home: Medicines Take xzar-qfk-bdjaskh and prescription medicines only as told by [...] provider. Document Revised: 09/26/2021 Document Reviewed: 09/26/2021 WritePath Patient Education 2022 Helpa. Follow Up Care 02/28/2022 09:04:41 With:TEJ HEREDIA, LORAINE Razo, URL Address: [address] [place] [address] When: Unknown [facility] 05-03-2022 Miscellaneous Notes Images from the original note were not included. documented in this encounter [facility] 04-26-2022 History of Present illness Narrative Headache Center - Follow up Virtual Visit During this COVID-19 pandemic, patient's headache clinic evaluation was scheduled as a virtual visit using the following platform Zoom - patient currently located in [place] Leana Tran was identified by name and [...] visit. Either the patient or their legal sales representative aircraft has been informed of the risks and [...] thrombosis. Unremarkable MRA brain and MRA neck. [facility] Date/Time: [facility] 31 2016 2:40P [...] change which could potentially contribute to headache. [facility] Date/Time: Jun 27 2021 3:07P Dictated [...] # 1.10 - 3.70 k/uL 1.67 Absolute [place] # 0.10 - 1.20 k/uL 0.37 Absolute Eos # 0.00 - 0.44 k/uL 0.19 Basophils Absolute 0.00 - 0.20 k/uL 0.04 Absolute Immature Granulocyte 0.00 - 0.30 k/uL 0.04 Review of Systems: Review of system: unchanged from the previous visit (sleep patterns, mood, energy, appetite, stress, exercising). Physical Examination: Vital Signs: [facility] 2015 General: well appearing, in no acute distress, alert Pain Behaviors: no pain behaviors observed Neurological: Mental Status: Alert and oriented to person, place and time. Affect is normal. Speech is spontaneous and fluent without dysarthria. Short and assisted memory, cognition and general fund of knowledge [...] Bhargavi Ramesh PA-C Headache Section [facility] April 26, 2022 documented in this encounter [facility] 04-17-2022 Instructions Fuentes Amaral MD - 04/17/2022 5:31 PM EDT Keep prior appointment September documented in this encounter [facility] 04-17-2022 History of Present illness [...] MD documented in this encounter [facility] 04-03-2022 Instructions Fuentes Amaral MD - 04/03/2022 11:06 AM EST Platelet electron microscopy pending drawn Call results when available - anticipate 2 weeks Consider functional medicine referral for DM and PCOS Keep appointment with Dr. Stephon Cronin's group for POTS Trial of Amicar prior to dentist appointment. 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 Fuentes Amaral MD, CPE Hematology and Oncology Services Provided at: [place], [place] CC: Cas Cronin documented in this encounter [facility] 04-03-2022 Nurse Note Patient is still bruising. Elizabeth Rodriges MA documented in this encounter [facility] 04-03-2022 Miscellaneous Notes Images from the original note were not included. documented in this encounter [facility] 03-21-2022 Miscellaneous Notes Received call from pt stating she was not able to get her PLT lab test done in [place] d/t them no longer doing them on or fridays so she needs to move out her appt with Dr Salas so she has time to try again to get lab done. Pt transferred to commercial front load operator to reschedule f/u appt. Manda León RN documented in this encounter [facility] 02-28-2022 Hospital Discharge instructions Patient [...] reconstructed. Follow these instructions at home: Take ylni-tou-xlorbtk and prescription medicines only as told by [...] 02/18/2016 Document Revised: 09/04/2018 Document Reviewed: 09/04/2018 [employer] Patient Education 2020 Helpa. Follow Up Care 12/22/2021 14:08:59 With:TEJ HEREDIA, LORAINE Razo, URL Address: [address] [place] [address] When: Unknown [facility] 02-27-2022 History of Present illness Narrative Refill Authorization Consent Leana Tran was encountered by text or mychart message to obtain consent for pharmacist managed refill authorization. Patient gives consent to the authorization of prescriptions by a pharmacist. Tesfaye Whitman RPh 02/27/2022 documented in this encounter [facility] 02-24-2022 Miscellaneous Notes PA submitted via covermymeds. Kurt TRAN ([place]: [id number]) Your information has been submitted to [facility]. To check for an updated outcome later, reopen this PA request from your dashboard. If [facility] has not responded to your request within 24 hours, contact [facility] at . If you think there may be a problem with your PA request, use our live chat feature at the bottom right. Vikash Oreilly RN February 24, 2022 3:16 PM documented in this encounter [facility] 02-20-2022 Miscellaneous Notes Ok with me Informed Lindsey of Dr Salas's response. Lindsey states that [facility] will only except if pt was drawn on and pt was drawn on Sunday so they are sending it out today to [place], unless Dr Salas would like pt to come back in for a redraw so it can be sent to [facility]. Manda León RN [facility] would be good. Received call from Melodie at [facility] in [place] stating pt had her platelet transmission lab done there but it is a lab test that they send out to other labs and they wanted to know if Dr Salas has a preference on what lab they send it to d/t different labs running the test different ways. ZACH: Please advise. Manda León RN documented in this encounter [facility] 02-17-2022 Miscellaneous Notes Records faxed to Dr. Cronin. Pt would like referral sent to Stephon Cronin MD @ [facility]. Lauren, will you please fax records when order is signed? Demo in your box, thanks! PSS: Please set pt up with referral to her preferred facilities maintenance supervisor. Thank you. Manda León RN Received call from pt stating Dr Salas told her to see facilities maintenance supervisor but their office needs a referral. ZACH: Order pending, please review and sign. Manda León RN documented in this encounter [facility] 02-13-2022 History of Present illness Narrative Discussed with scheduling, appointment will be rescheduled. Patient logged in late- had technical issues with Zoom. 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 Fuentes Amaral MD, CPE Hematology and Oncology Services Provided at: [place], [place] CC: Cas Dowell documented in this encounter [facility] 02-01-2022 Miscellaneous Notes Images from the original note were not included. documented in this encounter [facility] 01-23-2022 Hospital Discharge instructions Patient [...] Up Care 12/22/2021 14:21:18 With:LORAINE BURNHAM Address: [address] [place] [address]. [place] [address] [facility] (1) When:6 weeks Comments:Call for followup appointment in about six weeks. As discussed, PONCE Hargrove can further follow up on the left kidney abnormality noted on the kidney ultrasound. 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 [facility] 01-16-2022 History of Present illness Narrative Headache Center - Follow up Virtual Visit During this COVID-19 pandemic, patient's headache clinic evaluation was scheduled as a virtual visit using the following platform Zoom - patient currently located in [place] Leana Tran was identified by name and [...] thrombosis. Unremarkable MRA brain and MRA neck. Rn Labor And Delivery: [facility] Transcribe Date/Time: Mar 31 2016 2:40P [...] change which could potentially contribute to headache. Rn Labor And Delivery: [facility] Transcribe Date/Time: Jun 27 2021 3:07P Dictated [...] spontaneous and fluent without dysarthria. Short and longwall shearer operator memory, cognition and general fund of knowledge [...] Bhargavi Ramesh PA-C Headache Section [facility] January 16, 2022 documented in this encounter [facility] 01-02-2022 History of Present illness Narrative Sleep Study Check-In Documentation Date: January 02, 2022 Name: Leana Tran Patient was accompanied by Self. Location: [place] Latex allergy: Yes Tape allergy: No Current medications were reviewed with the patient:Yes Sleep aid taken by patient for the sleep study: [place] of sleep aid: Not Applicable Procedure was [...] Borden documented in this encounter [facility] 2021 Evaluation + Plan note Diagnostic Tests PendingUrine Cytology ([facility]) 12/21/21 [facility] 2021 Hospital Discharge instructions Patient [...] Follow these instructions at home: Medicines Take tpbt-mpz-cwcqcoh and prescription medicines only as told by [...] or the blood stops without treatment. Take ldno-chp-jonbdxp and prescription medicines only as told by your health care provider. Drink enough fluid to keep your urine clear or pale yellow. This information is not intended to replace advice given to you by your health care provider. Make sure you discuss any questions you have with your health care provider. Document Released: 01/22/2006 Document Revised: 06/18/2019 Document Reviewed: 02/24/2017 WritePath Patient Education 2020 Helpa. Follow Up Care 11/28/2021 10:05:42 With:[facility] Address: [address] [place] [address] Business (1) When: Unknown Comments:our chief general pediatric clinic will be contacting you for follow-up [facility] 12-20-2021 Miscellaneous Notes Results left on patient voicemail. Leana Tran's bleeding disorders panel through [facility] was non-diagnostic or negative for a pathogenic variant. 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 This is a common polymorphism in the general population present in ~10% of individuals of white ancestry and ~1/3 of those of South ancestry. This polymorphism is not expected to contribute to disease risk for the patient. Please see [employer] message for further discussion. CARINE Carrillo Licensed, Certified Genetic Counselor [facility] CC: Dr. Fuentes Craig documented in this encounter [facility] 12-15-2021 History of Present illness Narrative ACTIGRAPHY DEVICE # [id number] Date shipped out 12/15/2021 [employer] MAIL OUT TRACKING NUMBER [id number] [employer] RETURN TRACKING NUMBER [id number], Amber documented in this encounter [facility] 12-02-2021 History of Present illness [...] Levofloxacin Test done in consult with Dr. Una Oliver. Procedure Start Time: 0830 Height 162.6 cm Weight 101.2 kg Patient [...] CYNTHIA; Ofelia Allen RN Procedure Finish Time: 933 documented in this encounter [facility] 12-01-2021 Miscellaneous Notes Attempted to contact the patient. Left voice message. Filomena MARIE ----- Message from Micheal Perez MD sent at 11/30/2021 8:33 PM EDT ----- Regarding: Event monitor results. Please call with results. Micheal Perez MD November 30, 2021 8:33 PM documented in this encounter [facility] 11-18-2021 Instructions Fuentes Amaral MD - 11/18/2021 2:09 PM EDT 1. RTC and Repeat exam in 3 months - no labs 2. Review platelet genetics on return. 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 Fuentes Amaral MD, CPE Hematology and Oncology Services Provided at: [place], [place] CC: Cas Dowell documented in this encounter [facility] 11-16-2021 Instructions Meena Grissom MD [...] depending on your insurance coverage. Contact your [employer] company for new supplies as needed. Encouraged increased CPAP compliance -PAP titration polysomnogram requested to assess optimum PAP therapy for KATELIN -PAP nap procedure requested to help address mask interface issues To schedule your sleep study please call the [facility] Sleep Disorders Center at [phone]. The [phone] phone number will be answered by the [...] If you work rotating shifts, ask your competitive intelligence manager to schedule a natural, clockwise rotation. [...] A longer nap before reporting for a night club manager is also beneficial. Exposure to bright light on the job can improve alertness during night club manager work. Arrange for someone to pick you up after a night club manager, or take a bus or cab [...] for insomnia. The cost is $40. Use www.[employer] which to access the [facility] Wellness website to purchase the [...] provider and give them the CPT code: 10200 You will be asked to wear the [...] about your actigraphy device, please call the patient care technician at: [phone] ( During Hours: 8am-4:30pm) ? -Discussed pathophysiology of Sleep paralysis, and possible triggering factors which include sleep deprivation, untreated obstructive sleep apnea. Other possible etiologies include circadian shift work,anxiety disorders and medications. - Follow up in 2 months documented in this encounter [facility] 11-16-2021 Miscellaneous Notes Images from the original note were not included. Images from the original note were not included. documented in this encounter [facility] 11-16-2021 History of Present illness Narrative Images from the original note were not included. [facility] Sleep Disorders Center New Patient [...] the encounter were: Meena Grissom MD Leana Bean HPI: Leana Tran is a 35 year [...] on CPAP , her physician is at [facility]. Has a Resmed device, uses it [...] (Discontinued) PRIOR SLEEP STUDIES: Sleep centre at [place] (report not available at time of consultation) [...] uncontrolled Hypertension Mother Heart Attack Mother First MD at age 51 Cardiomyopathy Mother at age [...] If you work rotating shifts, ask your competitive intelligence manager to schedule a natural, clockwise rotation. [...] A longer nap before reporting for a night club manager is also beneficial. Exposure to bright light on the job can improve alertness during night club manager work. Arrange for someone to pick you up after a night club manager, or take a bus or cab [...] for insomnia. The cost is $40. Use www.[employer] which to access the [facility] Wellness website to purchase the [...] which included preparing to see the patient, pqum-wj-moxe patient care, performing a medically appropriate examination, counseling and educating the patient/family/caregiver and ordering medications/devices. documented in this encounter [facility] 11-15-2021 Miscellaneous Notes Images from the original note were not included. documented in this encounter [facility] 11-12-2021 History of Present illness [...] MD documented in this encounter [facility] 11-07-2021 Miscellaneous Notes Order for nebulizer supplies [facility]. Call to them inquiring about any additional information they may need. Landen Mahmood APRN.[employer] documented in this encounter [facility] 11-07-2021 Miscellaneous Notes Contacted [employer]. Order has not been received. Discussed with Javier from [facility]. Order is currently being processed. Filomena RN documented in this encounter [facility] 11-03-2021 Instructions Fuentes Amaral MD - 11/03/2021 11:38 AM EDT 1. Need Mammogram results from [facility] 2. Proceed with genetic testing for platelet disorder 3. Call next week to review mammogram results documented in this encounter [facility] 11-03-2021 History of Present illness [...] workup. PLAN: 1. Need Mammogram results from [facility] 2. Proceed with genetic testing for platelet [...] which included preparing to see the patient, jbqf-gl-ddoa patient care, completing clinical documentation, obtaining and/or reviewing separately obtained history, performing a medically appropriate examination, counseling and educating the patient/family/caregiver, ordering medications, tests, or procedures, independently interpreting results (not separately reported) and communicating results to the patient/family/caregiver. Fuentes Amaral MD, CPE Hematology and Oncology Services Provided at: [place], [place] CC: Cas Dowell documented in this encounter [facility] 10-30-2021 Miscellaneous Notes I don't think I need labs for her. If needed, please add lab orders for appointment on 11/03/21. Sharon Peterson Ma documented in this encounter [facility] 10-24-2021 History of Present illness Narrative VIRTUAL VISIT PROGRESS NOTE This is a virtual visit using Needl video visit. It required patient-provider interaction for [...] axillary lymphadenopathy. She is also following in long haul Covid clinic. She has noticed a rash that [...] controlled, she is following with Pulmonary and [facility] clinic She recently received iodinated contrast with pre-medication and was able to tolerate As per prior HPI: Chronic rhinitis Sinus/lung infections Longstanding history of recurrent pneumonia 1-2 times per year and recurrent sinus infections. Had sinus surgery which helped reduce sinus infections- however she has had 2 infections in the last 2 months. Immunodeficiency evaluation performed by an die machine operator in [place] showed protective strep pneumo titers after vaccination [...] at the ER Last December saw an die machine operator- skin testing was negative to environmental allergies [...] managed by her family medicine physician and collection teller. Has had 0 ER, hospitalization and ICU [...] uncontrolled Hypertension Mother Heart Attack Mother First MD at age 51 Cardiomyopathy Mother at age [...] or contact dermatitis- advise follow-up with local [facility] Allergic rhinitis, unspecified seasonality, unspecified trigger Comment/Plan: Well-controlled, continue Flonase and oral antihistamine Moderate persistent asthma without complication Comment/Plan: Controlled, continue follow-up with Pulmonary and Covid-19 [facility] Henny Rushing MD documented in this encounter [facility] 10-20-2021 History of Present illness Narrative [facility] [place] Department of Cardiac Surgery VIRTUAL VIDEO VISIT [...] uncontrolled Hypertension Mother Heart Attack Mother First MD at age 51 Cardiomyopathy Mother at age [...] 5:26 PM This note was generated using [email or web address] voice recognition system. Please excuse any typographical errors. I spent 30 minutes with the patient; greater than 50% of the time was spent in counselling and co-ordinating the care based on my impression and plan above. documented in this encounter [facility] 10-19-2021 Instructions Bhargavi Ramesh PA-C - 10/19/2021 2:31 PM EDT Consider restart Botox PREEMPT Protocol Discontinue Emgality Start Ajovy - once monthly - wait until 11/10 to inject the first dose [facility] [facility]: [phone] Consider aimovig or vyepti Please follow up in 3 months or sooner if needed documented in this encounter [facility] 10-19-2021 History of Present illness [...] fluticasone (FLONASE) 50 mcg/actuation nasal spray^Use 1 [place] in each nostril twice daily.^Disp: 3 Each^Rfl: [...] thrombosis. Unremarkable MRA brain and MRA neck. Rn Labor And Delivery: [facility] Transcribe Date/Time: Mar 31 2016 2:40P [...] change which could potentially contribute to headache. Rn Labor And Delivery: [facility] Transcribe Date/Time: Jun 27 2021 3:07P [...] Abs Lymph 1.00 - 4.00 k/uL 1.45 [place]% % 4.4 Abs [place] <0.87 k/uL 0.30 Eosin% % 2.5 Abs [...] visit due to nature of virtual visit. [facility] 2015 General: well appearing, in no acute distress, alert Pain Behaviors: no pain behaviors observed Neurological: Mental Status: Alert and oriented to person, place and time. Affect is normal. Speech is spontaneous and fluent without dysarthria. Short and longwall shearer operator memory, cognition and general fund of knowledge [...] Bhargavi Ramesh PA-C Headache Section [facility] October 19, 2021 documented in this encounter [facility] 10-14-2021 History of Present illness Narrative The [facility] Psychology Progress Note Billing codes: Keisha PSYCHOLOGY: FOLLOW-UP APPOINTMENT PROGRESS NOTE- Virtual Visit Due to the federal emergency declaration and the need for ongoing mental health services, the following visit was completed virtually and informed consent obtained orally to reduce the risk of COVID-19 exposure. Oral consent to services related to virtual visits was obtained after information was sent via Beisenhart or read to patient if MyChart not available. Leana Tran 10/14/2021 [id number] PROVIDER: Judith Valdes PSYD CPT Code: 3257780 Virtual PSYTX PT &/FAMILY 45 MINS Time [...] Mindfulness meditation practice Follow Up: 2 weeks Afiah Hasnie, Psy.D. Associate Staff, [facility] documented in this encounter [facility] 10-12-2021 History of Present illness Narrative Images from the original note were not included. Rheumatology Outpatient Clinic Date of Service: 10/12/2021 Patient: Leana Tran Medical Record: [id number] Primary Care Physician: Cas Dowell MD Referring [...] uncontrolled Hypertension Mother Heart Attack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 No drift Movement/Coordination Continuous dance-like movement of legs and torso Gait Unable to stand without upper body assistance. Slow station and stride. No festination or retropulsion. Gait is bizarre and cautious. Romberg's sign is absent. Drowsy, intermittently engaged, facial flushing noted. Neurological Exam Assessment & Plan 06/27/2021 - Neuromuscular, Peter Knight APRN.SAT INSTRUCTOR ASSESSMENT Patient presents today as follow up [...] gradually rise. 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 Peter Knight APRN.CNP documented in this encounter [facility] 06-16-2021 Miscellaneous Notes I spoke [...] MD documented in this encounter [facility] 06-14-2021 Miscellaneous Notes Pt questions [...] RN documented in this encounter [facility] 06-14-2021 History of Present illness [...] 7.5 tablets/week. She is following a local canoe builder who adjusted dose for her. Most recent [...] which included preparing to see the patient, ehoe-jk-rpbv patient care, completing clinical documentation, obtaining and/or reviewing separately obtained history, performing a medically appropriate examination, counseling and educating the patient/family/caregiver, ordering medications, tests, or procedures. This note was dictated using [employer] speech recognition software and may contain some errors that were a result of the program not accurately transcribing what was dictated. Jackelyn Marques M.D., M.Sc. Attending [facility] [place], [facility] Office: Appointments: documented in this encounter [facility] 06-14-2021 Nurse Note Thank you for choosing the [facility] Department of Endocrinology, Diabetes and Metabolism. Did you know that you need to call 48 hours in advance of your scheduled visit, if you are unable to make your appointment? [facility] thanks you for your commitment, because patients not showing to their appointment results in a lost opportunity for patients to receive encompass health care at the [facility]. To Cancel an appointment, please choose one of the following: - Call the Appointment Call Center at [phone] - From [facility], Go to Appointments Cancel Appts If cancelling, consider your need to reschedule to prevent further delays in your care. To Schedule an appointment, please choose one of the following: - Call the Appointment Call Center at [phone] - From [employer], Go to Appointments Request an Appt documented in this encounter [facility] 06-14-2021 History of Present illness [...] Tech documented in this encounter [facility] 06-10-2021 History of Present illness [...] to see endocrinology, neurology and cardiology at [facility] next week. ROS is negative except [...] which included preparing to see the patient, bobk-ce-iupc patient care, completing clinical documentation, obtaining and/or reviewing separately obtained history, performing a medically appropriate examination, counseling and educating the patient/family/caregiver, ordering medications, tests, or procedures, independently interpreting results (not separately reported) and communicating results to the patient/family/caregiver. CC: Peng Manley documented in this encounter [facility] 05-31-2021 Miscellaneous Notes Outside medical records received and scanned in for review. documented in this encounter [facility] 05-20-2021 Hospital Discharge instructions Shanna [...] cannot be sent through Care Everywhere.Chest Pain (Belgian)Abdominal Pain (Belgian)documented in this encounter [employer] Phone: 04-16-2021 Hospital Discharge instructions Shanna Rivas APRN - CNP - 04/16/2021 Increase your fluid intake. Follow-up with both PCP and PRESS READER for reevaluation. Take Reglan as prescribed. Talk to your PRESS READER about the left ovarian cyst seen on CT as well as possible mild fluid in your fallopian tube. Take all medications as prescribed. Return to the ER for increased pain, fevers, difficulty breathing, vomiting or new or worsening signs or symptoms. The following attachments cannot be sent through Care Everywhere.Ovarian Cyst: Functional (Belgian)Nausea and Vomiting (Belgian)documented in this encounter [employer] Phone: 11-01-2020 Hospital Discharge instructions Araseli Barrett [...] through Care Everywhere.Coronavirus Disease (COVID-19): General Info (Belgian)documented in this encounter [employer] Phone: 09-06-2020 Note HNO ID: [id number] Author: Lis Moraes MD Service: ? Author [...] - Tolerated procedure well Lis Moraes MD [facility] 09-06-2020 Note HNO ID: [id number] Author: Lis Moraes MD Service: ? Author Type: Physician Type: Progress Notes Filed: 09/06/2020 3:10 PM Note Text: PROGRESS NOTE- HEADACHE SERVICE DATE: September 06, 2020 Location: [facility] neurological institute Participants: patient and provider [...] bleeds - Lavender (more content not included)... [facility] Evaluation + Plan note Future Appointments Appointment Date:02/28/2022 08:30:00 AM Scheduled Provider:LORAINE BURNHAM PA-C Location:[facility] Appointment Type:URO Office Visit [facility] Evaluation + Plan note Future Appointments Appointment Date:08/30/2022 03:00:00 PM Scheduled Provider:LORAINE BURNHAM PA-C Location:[facility] Appointment Type:URO [facility] + Plan note Future Appointments Appointment Date:09/11/2023 09:00:00 AM Scheduled Provider:LORAINE BURNHAM PA-C Location:[facility] Appointment Type:URO Office Visit [facility] Evaluation note Diagnosis Strain of lumbar region, initial encounter- Primary [facility] Diagnosis COVID-19- Primary documented in this encounter [employer] Phone: evaluation note* Diagnosis Intractable nausea and vomiting- Primary Persistent vomiting Hydrosalpinx Chronic salpingitis and oophoritis Left ovarian cyst Other and unspecified ovarian cyst documented in this encounter [employer] Phone: evaluation note* Diagnosis Chest pain, unspecified type- Primary Abdominal pain, acute, right lower quadrant Abdominal pain, right lower quadrant documented in this encounter [employer] Phone: evaluation note* Diagnosis Urticaria- Primary Urticaria, unspecified Moderate persistent asthma with exacerbation Unspecified asthma, with exacerbation documented in this encounter [employer] Phone: evaluation note* Diagnosis Coagulopathy (HCC)- Primary Other and unspecified coagulation defects [facility] Diagnosis Screening for endocrine disorder- Primary Primary hypothyroidism Unspecified hypothyroidism [facility] Diagnosis Screening for endocrine disorder- Primary [facility] Disorder of autonomic nervous system Unspecified disorder of autonomic nervous system [facility]* Diagnosis Spasm of muscle- Primary Acute nonspecific chest pain with low risk of coronary artery disease documented in this encounter [employer] Phone: evaluation note* Diagnosis Worsening headaches- Primary Headache Maxillary sinus cyst Other diseases of nasal cavity and sinuses Muscle spasms of lower extremity, unspecified laterality Akathisia Abnormal involuntary movements Blurred vision Other specified visual disturbances Chorea Other choreas [facility]* Diagnosis Coagulopathy (HCC)- Primary Other and unspecified coagulation defects 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 [facility] Diagnosis Screening for endocrine disorder- Primary [facility] Diagnosis Intractable chronic migraine without aura and without status migrainosus- Primary Chronic migraine without aura, with intractable migraine, so stated, without mention of status migrainosus Abnormal involuntary movement Abnormal involuntary movements documented in this encounter [facility]* Diagnosis Allergy, initial encounter- Primary Headaches [facility] Diagnosis Bleeding disorder (HCC)- Primary Unspecified hemorrhagic conditions Coagulopathy (HCC) Other and unspecified coagulation defects 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 [facility] Diagnosis Screening for endocrine disorder [facility] Diagnosis 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) Unspecified hemorrhagic conditions [facility] Diagnosis History of COVID-19- Primary Symptomatic bradycardia Other specified cardiac dysrhythmias Blood pressure instability Other abnormal clinical finding [facility] Diagnosis Angioedema, initial encounter- Primary Urticaria Urticaria, unspecified Hoarseness of voice Dysphonia Allergic rhinitis, unspecified seasonality, unspecified trigger Adverse effect of drug, initial encounter Allergic reaction to contrast material, initial encounter Adverse food reaction, initial encounter Moderate persistent asthma without complication Unspecified asthma Gastroesophageal reflux disease, unspecified whether esophagitis present [facility] Diagnosis Screening for endocrine disorder Muscle spasms of lower extremity, unspecified laterality Akathisia Abnormal involuntary movements [facility] Diagnosis Chronic migraine without aura, intractable, without status migrainosus- Primary [facility]* Diagnosis Depression, unspecified depression type- Primary Anxiety Anxiety state, unspecified Intractable chronic migraine without aura and without status migrainosus Chronic migraine without aura, with intractable migraine, so stated, without mention of status migrainosus Abnormal involuntary movement Abnormal involuntary movements [facility] Diagnosis White coat syndrome with hypertension- Primary [facility] Diagnosis Intractable chronic migraine without aura and without status migrainosus Chronic migraine without aura, with intractable migraine, so stated, without mention of status migrainosus Abnormal involuntary movement Abnormal involuntary movements [facility] Diagnosis Chronic RLQ pain- Primary Abdominal pain, right lower quadrant Diastasis recti Diastasis of muscle [facility] Diagnosis Chronic RLQ pain- Primary Abdominal pain, right lower quadrant [facility] Diagnosis Symptomatic bradycardia Other specified cardiac dysrhythmias Blood pressure instability Other abnormal clinical finding History of COVID-19 documented in this encounter [facility] note* Diagnosis White coat syndrome without diagnosis of hypertension- Primary Elevated blood pressure reading without diagnosis of hypertension documented in this encounter [facility] note* Diagnosis Diffuse pain- Primary Generalized pain Decreased activity tolerance Physical deconditioning Debility, unspecified Orthostatic intolerance documented in this encounter [facility] note* Diagnosis Long COVID- Primary Diffuse pain Generalized pain Decreased activity tolerance PTSD (post-traumatic stress disorder) Posttraumatic stress disorder documented in this encounter [facility] note* Diagnosis Allergic reaction, initial encounter- Primary [facility]* Diagnosis Depression, unspecified depression type- Primary Anxiety Anxiety state, unspecified Abnormal involuntary movement Abnormal involuntary movements documented in this encounter [facility] note* Diagnosis Post-acute sequelae of COVID-19 [...] of left axilla documented in this encounter [facility] note* Diagnosis Bone pain- Primary Disorder of bone and cartilage, unspecified Malaise and fatigue Other malaise and fatigue Lymphadenopathy Enlargement of lymph nodes documented in this encounter [facility] note* Diagnosis 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 documented in this encounter [facility] note* Diagnosis History of COVID-19- Primary Post-acute [...] joint, multiple sites documented in this encounter [facility] note* Diagnosis History of COVID-19 Post-acute sequelae [...] sites [facility] History of COVID-19 Post-acute sequelae [...] sites [facility] Diagnosis 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 [facility] History of COVID-19 Post-acute [...] joint, multiple sites [facility] Diagnosis Malaise and fatigue- Primary Other malaise and fatigue Lymphadenopathy Enlargement of lymph nodes [facility] Diagnosis Depression, unspecified depression type- Primary Anxiety Anxiety state, unspecified Abnormal involuntary movement Abnormal involuntary movements [facility]* Diagnosis Chronic migraine without aura, intractable, without status migrainosus- Primary [facility]* Diagnosis Palpitations- Primary Symptomatic bradycardia Other specified cardiac dysrhythmias Orthostatic lightheadedness Dizziness and giddiness Diffuse pain Generalized pain Blood pressure instability Other abnormal clinical finding Decreased activity tolerance Orthostatic intolerance Moderate persistent asthma without complication Unspecified asthma Physical deconditioning Debility, unspecified [facility] Diagnosis Night sweats- Primary Generalized hyperhidrosis Lymphadenopathy Enlargement of lymph nodes Rash and nonspecific skin eruption Rash and other nonspecific skin eruption Allergic rhinitis, unspecified seasonality, unspecified trigger Moderate persistent asthma without complication Unspecified asthma [facility]* Diagnosis 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) Unspecified hemorrhagic conditions [facility]* Diagnosis 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 [facility]* Diagnosis Breast screening- Primary Breast screening, unspecified 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 [facility]* Diagnosis KATELIN on CPAP- Primary [...] hazards to health [facility]* Diagnosis Breast screening- Primary Breast screening, unspecified 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 [facility]* Diagnosis Palpitations- Primary Orthostatic intolerance Symptomatic bradycardia Other specified cardiac dysrhythmias [facility]* Diagnosis Moderate persistent asthma without complication- Primary Unspecified asthma SOB (shortness of breath) Shortness of breath Post-acute sequelae of COVID-19 (PASC) [facility]* Diagnosis Migraine without aura and without status migrainosus, not intractable- Primary Migraine without aura, without mention of intractable migraine without mention of status migrainosus [facility] note* Diagnosis 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) Unspecified hemorrhagic conditions [facility] Diagnosis No-show for appointment- Primary [facility] Diagnosis 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) Unspecified hemorrhagic conditions Coagulopathy (HCC) Other and unspecified coagulation defects [facility] 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) Unspecified hemorrhagic conditions [facility] Diagnosis 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 [facility] Diagnosis Migraine without aura and without status migrainosus, not intractable- Primary Migraine without aura, without mention of intractable migraine without mention of status migrainosus [facility] Diagnosis 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) Unspecified hemorrhagic conditions Coagulopathy (HCC) Other and unspecified coagulation defects [facility] Diagnosis Moderate persistent asthma without complication (CMS/HCC)- Primary documented in this encounter [facility]* Diagnosis 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 POTS (postural orthostatic tachycardia syndrome) Tachycardia, unspecified [facility] Diagnosis Chronic RLQ pain Abdominal pain, right lower quadrant [facility] Diagnosis Severe persistent asthma with (acute) exacerbation ([facility]/HCC)- Primary Allergic reaction, subsequent encounter Gastroesophageal reflux disease without esophagitis Esophageal reflux Vocal cord dysfunction Other diseases of vocal cords documented in this encounter [facility] note* Diagnosis Vocal cord dysfunction- Primary Other diseases of vocal cords documented in this encounter [facility]* Diagnosis Autonomic dysfunction- Primary Chest pain, unspecified type Type 2 diabetes mellitus with hyperglycemia, without long-term current use of insulin (CMS/HCC) Type 2 diabetes mellitus with hyperglycemia, without long-term current use of insulin (CMS/HCC)- Primary Chronic yfya-URQPR-29 syndrome Moderate persistent asthma without complication (CMS/HCC) Chronic allergic rhinitis due to pollen Edema of both legs Edema Acute non-recurrent pansinusitis Allergic reaction, subsequent encounter- Primary Body mass index (BMI) 38.0-38.9, adult Type 2 diabetes mellitus with hyperglycemia, without long-term current use of insulin (CMS/HCC)- Primary Chronic ujzj-QRGJD-68 syndrome Moderate persistent asthma without complication (CMS/HCC) Chronic allergic rhinitis due to pollen Edema of both legs Edema PCOS (polycystic ovarian syndrome)- Primary Polycystic ovaries Well woman exam with routine gynecological exam Routine gynecological examination Hormone disorder Unspecified endocrine disorder documented in this encounter [facility] note* Diagnosis Moderate asthma without complication, unspecified whether persistent documented in this encounter [facility]* Diagnosis Allergic reaction, subsequent encounter- Primary Body mass index (BMI) 38.0-38.9, adult documented in this encounter [facility] HealthcareEvaluation note* Diagnosis Type 2 diabetes mellitus with hyperglycemia, without long-term current use of insulin ([facility])- Primary Chronic uadj-AUZXC-03 syndrome Moderate persistent asthma without complication ([facility]/HCC) Chronic allergic rhinitis due to pollen Edema of both legs Edema documented in this encounter [facility]* Diagnosis Autonomic dysfunction- Primary Chest pain, unspecified type Type 2 diabetes mellitus with hyperglycemia, without long-term current use of insulin ([facility]/HCC) Type 2 diabetes mellitus with hyperglycemia, without long-term current use of insulin ([facility])- Primary Chronic wiqt-MVUZF-02 syndrome Moderate persistent asthma without complication (CMS/HCC) Chronic allergic rhinitis due to pollen Edema of both legs Edema Acute non-recurrent pansinusitis Allergic reaction, subsequent encounter- Primary Body mass index (BMI) 38.0-38.9, adult Type 2 diabetes mellitus with hyperglycemia, without long-term current use of insulin ([facility])- Primary Chronic sjsx-BWXNX-45 syndrome Moderate persistent asthma without complication (CMS/HCC) Chronic allergic rhinitis due to pollen Edema of both legs Edema Type 2 diabetes mellitus with hyperglycemia, without long-term current use of insulin ([facility])- Primary Autonomic dysfunction Chronic cdwy-PXQVQ-03 syndrome Moderate persistent asthma without complication ([facility]/HCC) Chronic allergic rhinitis due to pollen Edema of both legs Edema MDD (major depressive disorder), recurrent episode, mild (HCC) ([facility]) Class 2 severe obesity due to excess calories with serious comorbidity and body mass index (BMI) of 37.0 to 37.9 in adult ([facility]) Gastroesophageal reflux disease without esophagitis Esophageal reflux documented in this encounter [facility]* Diagnosis Autonomic dysfunction- Primary Chest pain, unspecified type Type 2 diabetes mellitus with hyperglycemia, without long-term current use of insulin (CMS/HCC) Type 2 diabetes mellitus with hyperglycemia, without long-term current use of insulin (CMS/HCC)- Primary Chronic evow-SYOAY-85 syndrome Moderate persistent asthma without complication (CMS/HCC) Chronic allergic rhinitis due to pollen Edema of both legs Edema Acute non-recurrent pansinusitis Allergic reaction, subsequent encounter- Primary Body mass index (BMI) 38.0-38.9, adult Type 2 diabetes mellitus with hyperglycemia, without long-term current use of insulin (CMS/HCC)- Primary Chronic wjkc-ZRFKY-74 syndrome Moderate persistent asthma without complication (CMS/HCC) Chronic allergic rhinitis due to pollen Edema of both legs Edema Type 2 diabetes mellitus with hyperglycemia, without long-term current use of insulin (CMS/HCC)- Primary Autonomic dysfunction Chronic gadv-FIVSI-67 syndrome Moderate persistent asthma without complication (CMS/HCC) Chronic allergic rhinitis due to pollen Edema of both legs Edema MDD (major depressive disorder), recurrent episode, mild (HCC) (CMS/HCC) Class 2 severe obesity due to excess calories with serious comorbidity and body mass index (BMI) of 37.0 to 37.9 in adult (CMS/HCC) Gastroesophageal reflux disease without esophagitis Esophageal reflux COVID-19- Primary Moderate persistent asthma without complication (CMS/HCC) [facility] Diagnosis Migraine without aura and without status migrainosus, not intractable- Primary 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 Word finding difficulty Autonomic dysfunction Cervicalgia [facility] Diagnosis Chronic sinusitis [facility]* Diagnosis 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- Primary [facility]* Diagnosis 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 [facility]* Diagnosis 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- Primary [facility] Diagnosis Migraine without aura and without status migrainosus, not intractable- Primary 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 * Strain or Sprain (Belgian) [facility] Hospital Discharge instructions* Attachments The following attachments cannot be sent through Care Everywhere. * Chest Pain (Belgian) * Restless Legs Syndrome (Belgian) [facility]: Hospital Discharge instructions No data available for this section [facility] InstructionsNot on filedocumented in this encounter [facility] filed[facility]ed [facility] filedocumented in this encounter [facility] filedocumented in this encounter [facility] filedocumented in this encounter [facility] filedocumented in this encounter [facility] No data available for this section [facility] reason for referral (narrative)* Diagnostic Procedure Only (Routine) - Authorized Specialty Diagnoses / Procedures Referred By Sabas t Referred To Contact US IMAGING Diagnoses Chronic RLQ pain Procedures US SOFT TISSUE ABDOMEN US ABDOMINAL REAL TIME W/[place] [address] [place] [address] Us Imaging Referral ID Status Reason Start Date Expiration Date Visits Requested Visits Authorized [id number] Authorized Auto-Generat ed Referral 08/15/2021 09/14/2022 1 1 [facility] for referral (narrative)* Diagnostic Procedure Only (Routine) - Authorized Specialty Diagnoses / Procedures Referred By Contac t Referred To Contact US IMAGING Diagnoses Chronic RLQ pain Procedures US PELVIS LTD US PELVIC NONOBSTETRIC IMAGE DCMTN LIMITED/F/[place] [address] [place] [address] Us Imaging Referral ID Status Reason Start Date Expiration Date Visits Requested Visits Authorized [id number] Authorized Auto-Generat ed Referral 08/16/2021 09/15/2022 1 1 [facility] for referral (narrative)* Outpatient Procedure (Routine) - Closed Specialty Diagnoses / Procedures Referred By Contac t Referred To Contact [facility] Diagnoses Symptomatic bradycardia Blood pressure instability History of COVID-19 Procedures ECHO ECHO TTHRC R-T 2D W/WOM-MODE COMPL SPEC&COLR D Sai Perez MD [address] [place] [address] [facility] [place] [id number] [place] [address] Referral ID Status Reason Start Date Expiration Date V isits Requested Visits Authorized [id number] Closed Auto-Generate d Referral 07/21/2021 07/21/2022 1 1 [facility] for referral (narrative)* Diagnostic Procedure Only (Routine) - Pending Review Specialty Diagnoses / Procedures Referred By Contac t Referred To Contact US IMAGING Diagnoses Post-acute sequelae of COVID-19 (PASC) Mass of left axilla Procedures US CHEST WALL/SOFT TISSUE US CHEST REAL TIME W/IMAGE DOCUMENTATION Landen Mahmood, PIER HAND.SAT INSTRUCTOR [address] [place] [address] Us Imaging Referral ID Status Reason Start Date Expiration Date Visits Requested Visits Authorized [id number] Pending Review Auto-Generat ed Referral 09/19/2021 10/19/2022 [...] multiple sites Procedures LUNG VOLUMES Landen Mahmood APRN.SAT INSTRUCTOR [address] [place] [address] Res[facility] [place] [address] [place], [place] [id number] Referral ID Status Reason Start Date Expiration Date Visits Requested Visits Authorized [id number] Pending Review Auto-Generat ed Referral 09/19/2021 10/19/2022 1 1 * Outpatient Procedure (Routine) - Pending Review Specialty Diagnoses / Procedures [facility] Diagnoses History of COVID-19 Post-acute sequelae of COVID-19 (PASC) SOB (shortness of breath) Chronic cough Chest discomfort Palpitation CAVANAUGH (dyspnea on exertion) Dizziness Near syncope Night sweats Orthopnea Anxiety Myalgia Pain in joint, multiple sites Procedures SPIROMETRY - BASELINE AND POST DILATOR BRNCDILAT RSPSE SPMTRY PRE&POST-BRNCDILAT ADMN Landen Mahmood APRN.SAT INSTRUCTOR [address] [place] [address] [address] Referral ID Status Reason Start Date Expiration Date Visits Requested Visits Authorized [id number] Pending Review Auto-Generat ed Referral 09/19/2021 10/19/2022 [...] WALK CARDIOPULMONARY EXERCISE STRESS Landen Mahmood APRN.CNP [address] [place] [address] Respiratory [place] [id number] Referral ID Status Reason Start Date Expiration Date Visits Requested Visits Authorized [id number] Pending Review Auto-Generat ed Referral 09/19/2021 10/19/2022 1 1 * Outpatient Procedure (Routine) - Pending Review Specialty Diagnoses / Procedures [facility] Diagnoses History of COVID-19 Post-acute sequelae of COVID-19 (PASC) SOB (shortness of breath) Chronic cough Chest discomfort Palpitation CAVANAUGH (dyspnea on exertion) Dizziness Near syncope Night sweats Orthopnea Anxiety Myalgia Pain in joint, multiple sites Procedures LUNG DIFFUSION CAPACITY (DLCO) DIFFUSING CAPACITY Landen Mahmood APRN.SAT INSTRUCTOR [address] [place] [address] [place] [id number] Referral ID Status Reason Start Date Expiration Date Visits Requested Visits Authorized [id number] Pending Review Auto-Generat ed Referral 09/19/2021 10/19/2022 1 1 [facility] for referral (narrative)* Outpatient Procedure (Routine) - Pending Review Specialty Diagnoses / Procedures Referred By Contsuraj t Referred To Contact [facility] Diagnoses KATELIN on CPAP Poor compliance with CPAP treatment Procedures PAP NAP PSG (CPAP, BILEVEL, ASV) SLEEP STD REC VNTJ RESPIR ECG/HRT RATE&O2 ATTN Meena Grissom MD [address] [place] [address] [address] [place] [address] Referral ID Status Reason Start Date Expiration Date Visits Requested Visits Authorized [id number] Pending Review Auto-Generat ed Referral 2 12/16/2022 1 1 [facility] for referral (narrative)* Outpatient Procedure (Routine) - Pending Review Specialty Diagnoses / Procedures Referred By Sabas harris Referred To Contact [facility] Diagnoses Moderate persistent asthma without complication SOB (shortness of breath) Post-acute sequelae of COVID-19 (PASC) Procedures SPIROMETRY - BASELINE AND POST DILATOR BRNCDILAT RSPSE SPMTRY PRE&POST-BRNCDILAT ADMN Jaja Cabral PA-C [address] [place] [phone] Res[facility] [place] [id number] Referral ID Status Reason Start Date Expiration Date Visits Requested Visits Authorized [id number] Pending Review Auto-Generat ed Referral 12/06/2021 01/05/2023 1 1 * Outpatient Procedure (Routine) - Pending Review Specialty Diagnoses / Procedures Referred By Sabas harris Referred To [facility] [place] Diagnoses Moderate persistent asthma without complication SOB (shortness of breath) Post-acute sequelae of COVID-19 (PASC) Procedures NITRIC OXIDE, EXHALED NITRIC OXIDE GAS DETERMINATION Jaja Cabral PA-C [address] [place] [address] [address] Referral ID Status Reason Start Date Expiration Date Visits Requested Visits Authorized [id number] Pending Review Auto-Generat ed Referral 12/06/2021 01/05/2023 1 1 [facility] for referral (narrative)* Diagnostic Procedure Only (Routine) - Closed Specialty Diagnoses / Procedures Referred By Contac t Referred To Contact US IMAGING Diagnoses Chronic RLQ pain Procedures US PELVIS LTD [facility]RIC [facility]/[place] [address] [place] [address] [place] [address] Referral ID Status Reason Start Date Expiration Date V isits Requested Visits Authorized [id number] Closed Auto-Generate d Referral 08/16/2021 09/15/2022 1 1 [facility] for referral (narrative)* Consultation (Routine) - Pending Review Specialty Diagnoses / Procedures Referred By Contac t Referred To Contact Speech Pathology Diagnoses Vocal cord dysfunction Procedures GA OFFICE/OUTPATIENT NEW HIGH MDM 60 MINUTES Christy Painting MD [address] [place] [address] Referral ID Status Reason Start Date Expiration Date Visits Requested Visits Authorized [id number] Pending Review Specialty Services Required 11/07/2023 05/05/2024 1 1 [facility] for referral (narrative)* Consultation (Routine) - Pending Review Specialty Diagnoses / Procedures Referred By Contac t Referred To Contact Allergy Diagnoses Allergic reaction, subsequent encounter Procedures GA OFFICE/OUTPATIENT NEW HIGH MDM 60 MINUTES Cas Dowell MD [address] [place] [address] Christy Painting MD [address] [place] [address] Referral ID Status Reason Start Date Expiration Date Visits Requested Visits Authorized [id number] Pending Review Specialty Services Required 09/26/2023 03/24/2024 1 1 [facility] for visit Narrative* Outpatient Procedure (Routine) - Closed Specialty Diagnoses / Procedures Referred By Contac t Referred To Contact [facility] Diagnoses Symptomatic bradycardia Blood pressure instability History of COVID-19 Procedures ECHO ECHO TTHRC R-T 2D W/WOM-MODE COMPL SPEC&COLR D Sai Perez MD [address] [place] [id number] [place] [address] Referral ID Status Reason Start Date Expiration Date V isits Requested Visits Authorized [id number] Closed Auto-Generate d Referral 07/21/2021 07/21/2022 1 1 [facility] for visit Narrative* Outpatient Procedure (Routine) - [...] MINUTE WALK CARDIOPULMONARY EXERCISE STRESS Landen Mahmood APRN.MACY [address] [place] [phone] Respiratory [place] [address] [place] [address] Referral ID Status Reason Start Date Expiration Date V isits Requested Visits Authorized [id number] Closed Auto-Generate d Referral 09/19/2021 10/19/2022 1 1 [facility] for visit Narrative* Diagnostic Procedure Only (Routine) - Closed Specialty Diagnoses / Procedures Referred By Contac t Referred To Contact US IMAGING Diagnoses Chronic RLQ pain Procedures US PELVIS LTD US PELVIC NONOBSTETRIC IMAGE DCMTN LIMITED/F/[place] [address] [place] [address] Us Imaging [id number] Referral ID Status Reason Start Date Expiration Date V isits Requested Visits Authorized [id number] Closed Auto-Generate d Referral 08/16/2021 09/15/2022 1 1 [facility] Advance Directives No Advanced Directives Records FoundDocuments on File Type Date Recorded Patient Division Supervisor Expl anation ACP-Advance Directive ACP-Power of Securities Trader Latest Code Status on File Code Status Date Activated Date Inactivated Comments Full Code 12/30/2011 10:09 AM 12/31/2011 4:00 PM Documents on File Type Date Recorded Patient Division Supervisor Expl anation Advance Directive(s) 05/18/2015 10:11 AM Advance Directive(s) 05/14/2015 12:11 PM Documents on File Type Date Recorded Patient Division Supervisor Expl anation Advance Directive(s) 06/27/2021 1:27 PM Advance Directive(s) 05/18/2015 10:11 AM Advance Directive(s) 05/14/2015 12:11 PM Documents on File Type Date Recorded Patient Division Supervisor Expl anation Advance Directive(s) 06/27/2021 1:27 PM Advance Directive(s) 05/18/2015 10:11 AM Advance Directive(s) 05/14/2015 12:11 PM Documents on File Type Date Recorded Patient Division Supervisor Expl anation ACP-Advance Directive 01/12/2022 2:29 PM ACP-Power of Securities Trader 01/12/2022 2:29 PM Latest Code Status on File Code Status Date Activated Date Inactivated Comments Full Code 01/08/2022 5:06 PM 01/11/2022 3:07 PM Full Code 12/30/2011 10:09 AM 12/31/2011 4:00 PM Healthcare Agents on File Name Relationship Healthcare Agent Relationship Communication Sean Tran Spouse Primary Decision Maker ([place]) Documents on File Type Date Recorded Patient Division Supervisor Expl anation ACP-Advance Directive 01/12/2022 2:29 PM ACP-Power of Securities Trader 01/12/2022 2:29 PM Date Activated Date Inactivated Comments 01/08/2022 5:06 PM 01/11/2022 3:07 PM Date Activated Date Inactivated Comments 12/30/2011 10:09 AM 12/31/2011 4:00 PM Healthcare Agents on File Name Relationship Healthcare Agent Relationship Communication Sean Tran Spouse Primary Decision Maker Date Activated Date Inactivated Comments 01/08/2022 5:06 PM 01/11/2022 3:07 PM Date Activated Date Inactivated Comments 12/30/2011 10:09 AM 12/31/2011 4:00 PM Healthcare [...] laterality Akathisia Procedures CONSULT TO NEUROLOGY OFFICE/OUTPATIENT [facility] 60-74 MINUTES Peter Knight APRN.SAT INSTRUCTOR [address] [place] [address] Referral ID Status Reason Start Date Expiration Date Visits Requested Visits Authorized [id number] Authorized PCP Requested Referral 06/27/2021 06/27/2022 1 1 Specialty Diagnoses / Procedures Referred By Contac t Referred To Contact Ent - Otolaryngology Diagnoses Maxillary sinus cyst Procedures CONSULT TO ENT OFFICE/OUTPATIENT [facility] 60-74 MINUTES Peter Knight APRN.SAT INSTRUCTOR [address] [facility] [place] [address] Referral ID Status Reason Start Date Expiration Date Visits Requested Visits Authorized [id number] Authorized PCP Requested Referral 06/27/2021 06/27/2022 1 1 Specialty Diagnoses / Procedures Referred By Contac t Referred To Contact Diagnoses Coagulopathy (HCC) Qualitative platelet disorder (HCC) Procedures CONSULT TO MEDICAL GENETICS - GENERAL OFFICE/OUTPATIENT [facility] 60-74 MINUTES MEDICAL GENETICS COUNSELING EACH 30 MINUTES Yan Bass MD [address] [place] [address] [place] [address] [facility] [place] [address] [place] [address] Referral ID Status Reason Start Date Expiration Date Visits Requested Visits Authorized [id number] Authorized PCP Requested Referral Auto-Generate d Referral 07/01/2021 07/01/2022 1 1 Specialty Diagnoses / Procedures Referred By Contac t Referred To Contact Psychology Diagnoses Intractable chronic migraine without aura and without status migrainosus Abnormal involuntary movement Procedures CONSULT TO PSYCHOLOGY OFFICE/OUTPATIENT [facility] 60-74 MINUTES Tracee Mcintyre MD [address] [facility] [place] [place] [address] Referral ID Status Reason Start Date Expiration Date Visits Requested Visits Authorized [id number] Pending Review PCP Requested Referral 07/06/2021 07/06/2022 1 1 Specialty Diagnoses / Procedures Referred By Contac t Referred To Contact [facility] Diagnoses Intractable chronic migraine without aura and without status migrainosus Abnormal involuntary movement Procedures CONSULT TO PHYSICAL THERAPY PHYSICAL THERAPY EVALUATION HIGH COMPLEX 45 MINS Tracee Mcintyre MD [facility] [place] [address] [place] [address] Referral ID Status Reason Start Date Expiration Date Visits Requested Visits Authorized [id number] Pending Review Auto-Generat ed Referral 07/06/2021 07/06/2022 1 1 Specialty Diagnoses / Procedures Referred By Contac t Referred To Contact Allergy Diagnoses Allergy, initial encounter Procedures CONSULT TO ALLERGY/IMMUNOLOGY OFFICE/OUTPATIENT [facility] 60-74 MINUTES Aldo Ann MD [address] [place] [address] Referral ID Status Reason Start Date Expiration Date Visits Requested Visits Authorized [id number] Authorized PCP Requested Referral 07/14/2021 07/14/2022 1 1 Specialty Diagnoses / Procedures Referred By Contac t Referred To Contact [facility] Diagnoses History of COVID-19 Procedures CONSULT TO COVID RECOVER CLINIC Sai Perez MD [address] [id number] [facility] [address] [place] [address] Referral ID Status Reason Start Date Expiration Date Visits Requested Visits Authorized [id number] Authorized PCP Requested Referral 07/21/2021 07/21/2022 1 1 Specialty Diagnoses / Procedures Referred By Contac t Referred To Contact [facility] Diagnoses Symptomatic bradycardia Blood pressure instability History of COVID-19 Procedures ECHO ECHO TTHRC R-T 2D W/WOM-MODE COMPL SPEC&COLR D Sai Perez MD [address] [place] [address] [facility] [id number] [place] [address] Referral ID Status Reason Start Date Expiration Date Visits Requested Visits Authorized [id number] Authorized Auto-Generat ed Referral 07/21/2021 07/21/2022 1 1 Specialty Diagnoses / Procedures Referred By Contac t Referred To Contact Ent - Otolaryngology Diagnoses Hoarseness of voice Procedures CONSULT TO ENT OFFICE/OUTPATIENT NEW HIGH MDM 60-74 MINUTES Henny Rushing MD [address] [address] Rc Cardenas, PhD, [facility] [place] [address] [place] [address] Referral ID Status Reason Start Date Expiration Date Visits Requested Visits Authorized [id number] Authorized PCP Requested Referral 07/25/2021 07/25/2022 1 1 Specialty Diagnoses / Procedures Referred By Contac t Referred To Contact Diagnoses Diffuse pain Decreased activity tolerance Physical deconditioning Procedures WELLNESS CONSULT OFFICE/OUTPATIENT NEW HIGH MDM 60-74 MINUTES Peter Knight APRN.SAT INSTRUCTOR [address] [place] [address] Referral ID Status Reason Start Date Expiration Date Visits Requested Visits Authorized [id number] Authorized PCP Requested Referral 08/23/2021 08/23/2022 1 1 Specialty Diagnoses / Procedures Referred By Contac t Referred To Contact Diagnoses Long COVID PTSD (post-traumatic stress disorder) Procedures MIND/BODY HOLISTIC PSYCHOTHERAPY OFFICE/OUTPATIENT [facility] 60-74 MINUTES Ayaka Bright MD [employer] [place] [address] [phone] Referral ID Status Reason Start Date Expiration Date Visits Requested Visits Authorized [id number] Authorized PCP Requested Referral 08/30/2021 08/30/2022 1 1 Specialty Diagnoses / Procedures Referred By Contac t Referred To Contact Diagnoses Long COVID Diffuse pain Decreased activity tolerance Procedures CONSULT TO NUTRITION SERVICES AT [facility] OFFICE/OUTPATIENT [facility] 60-74 MINUTES Ayaka Bright MD [employer] [place] [address] [phone] Referral ID Status Reason Start Date Expiration Date Visits Requested Visits Authorized [id number] Authorized PCP Requested Referral 08/30/2021 08/30/2022 1 1 Specialty Diagnoses / Procedures Referred By Contac t Referred To Contact Diagnoses Chronic migraine without aura, intractable, without status migrainosus Procedures PROVIDER ORDERED FOLLOW UP OFFICE/OUTPATIENT [facility] 60-74 MINUTES Bhargavi Ramesh PA-C [address] [place] [address] Referral ID Status Reason Start Date Expiration Date Visits Requested Visits Authorized [id number] Authorized PCP Requested Referral 10/19/2022 1 1 Specialty Diagnoses / Procedures Referred By Contac t Referred To Contact Hematology Diagnoses Lymphadenopathy Night sweats Procedures CONSULT TO HEMATOLOGY OFFICE/OUTPATIENT [facility] 60-74 MINUTES Henny Rushing MD [address] [place] [address] Referral ID Status Reason Start Date Expiration Date Visits Requested Visits Authorized [id number] Authorized PCP Requested Referral 10/24/2021 10/24/2022 1 1 Specialty Diagnoses / Procedures Referred By Contac t Referred To Contact Diagnoses Migraine without aura and without status migrainosus, not intractable Procedures PROVIDER ORDERED FOLLOW UP OFFICE/OUTPATIENT [facility] 60-74 MINUTES Bhargavi Ramesh PA-C [address] [place] [address] Referral ID Status Reason Start Date Expiration Date Visits Requested Visits Authorized [id number] Authorized PCP Requested Referral 04/16/2022 01/16/2023 1 1 Specialty Diagnoses / Procedures Referred By Contac t Referred To Contact Cardiology Diagnoses 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) Coagulopathy (HCC) Procedures CONSULT TO CARDIOLOGY OFFICE/OUTPATIENT NEW [facility] 60-74 MINUTES Fuentes Amaral MD [address] [place] [address] [place] [address] Referral ID Status Reason Start Date Expiration Date Visits Requested Visits Authorized [id number] Authorized PCP Requested Referral 02/16/2022 02/16/2023 1 1 Referral ID Status Reason Start Date Expiration Date Visits Requested Visits Authorized [id number] Authorized PCP Requested Referral 10/27/2022 04/26/2023 1 1 Specialty Diagnoses / Procedures Referred By Contac t Referred To Contact Diagnoses Moderate asthma without complication, unspecified whether persistent Procedures Full PFT Study With Bronchodilator Nabor Yancey, PIER HAND - SAT INSTRUCTOR [address] [address] Referral ID Status Reason Start Date Expiration Date V isits Requested Visits Authorized [id number] Not Required - RTA 12/04/2023 12/03/2024 1 1 Additional Source Comments Reason for [...] Comments Allergic Reaction Unknown trigger, 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 Pt used epi-pen prior to arrival and reports feeling short of breath Reason Comments surgery clearence Reason Comments Adrenal Specialty Diagnoses / Procedures Referred By Contac t Referred To Contact Endocrinology Diagnoses Symptomatic bradycardia Blood pressure instability Procedures CONSULT TO ENDOCRINOLOGY OFFICE/OUTPATIENT NEW HIGH MDM 60-74 MINUTES Peter Knight, PIER HAND.SAT INSTRUCTOR [address] [place] [address] Referral ID Status Reason Start Date Expiration Date V isits Requested Visits Authorized [id number] Closed PCP Requested Referral 05/24/2021 05/24/2022 1 [...] CONSULT TO MEDICAL GENETICS - GENERAL OFFICE/OUTPATIENT [facility] 60-74 MINUTES MEDICAL GENETICS COUNSELING EACH 30 MINUTES Yan Bass MD [address] [place] [address] [place] [address] [facility] [address] [place] [address] Referral ID Status Reason Start Date Expiration Date V isits Requested Visits Authorized [id number] Closed PCP Requested Referral Auto-Generated Referral 07/01/2021 07/01/2022 1 1 Reason Comments Coagulopathy Specialty Diagnoses / Procedures Referred By Contac t Referred To Contact Cardiology Diagnoses Symptomatic bradycardia Blood pressure instability Procedures CONSULT TO CARDIOLOGY OFFICE/OUTPATIENT [facility] 60-74 MINUTES Peter Knight APRN.CNP [address] [place] [address] Referral ID Status Reason Start Date Expiration Date V isits Requested Visits Authorized [id number] Closed PCP Requested Referral 05/24/2021 05/24/2022 1 1 Reason Comments Allergies Asthma Reason Comments Follow Up Chronic Migraine Reason Comments Consult Specialty Diagnoses / Procedures Referred By Contac t Referred To Contact Psychology Diagnoses Intractable chronic migraine without aura and without status migrainosus Abnormal involuntary movement Procedures CONSULT TO PSYCHOLOGY OFFICE/OUTPATIENT [facility] 60-74 MINUTES Tracee Mcintyre MD [address] [place] [address] Referral ID Status Reason Start Date Expiration Date Visits Requested Visits Authorized [id number] Pending Review PCP Requested Referral 07/06/2021 07/06/2022 [...] COMPLEX 45 MINS Tracee Mcintyre MD [address] [place] [address] [facility] [place] [address] [place] [address] Referral ID Status Reason Start Date Expiration Date V isits Requested Visits Authorized [id number] Authorized 02/05/2021 02/04/2022 99 99 Reason Comments [...] NEW HIGH MDM 60-74 MINUTES Peter Knight, LIO.SAT INSTRUCTOR [address] [place] [address] Referral ID Status Reason Start Date Expiration Date V isits Requested Visits Authorized [id number] Closed PCP Requested Referral 08/23/2021 08/23/2022 1 1 Reason Comments Allergic Reaction Onset prior to arriv al. Pt reports her face is burning and feels short of breath. 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 Comments Parts Puller - Other Reason Comments New Specialty Diagnoses / Procedures Referred By Contac t Referred To Contact [facility] Diagnoses History of COVID-19 Procedures CONSULT TO [facility] Sai Perez MD [address] [place] [address] [facility] [address] [place] [address] Referral ID Status Reason Start Date Expiration Date V isits Requested Visits Authorized [id number] Closed PCP Requested Referral 07/21/2021 07/21/2022 1 1 Reason Comments Consult Patient states [facility], seen Landen Mahmodo APRN. She states her lymph nodes were [...] DIFFUSION CAPACITY (DLCO) DIFFUSING CAPACITY Landen Mahmood APRN.SAT INSTRUCTOR [address] [place] [address] [place] [address] Referral ID Status Reason Start Date Expiration Date V isits Requested Visits Authorized [id number] Closed Auto-Generate d Referral 09/19/2021 10/19/2022 1 1 Specialty Diagnoses / Procedures [facility]erred To Contact [facility] [place] Diagnoses History of COVID-19 Post-acute sequelae of COVID-19 (PASC) SOB (shortness of breath) Chronic cough Chest discomfort Palpitation CAVANAUGH (dyspnea on exertion) Dizziness Near syncope Night sweats Orthopnea Anxiety Myalgia Pain in joint, multiple sites Procedures SPIROMETRY - BASELINE AND POST DILATOR BRNCDILAT RSPSE SPMTRY PRE&POST-BRNCDILAT ADMN Landen Mahmood APRN.SAT INSTRUCTOR [address] [place] [address] [place] [address] Referral ID Status Reason Start Date Expiration Date V isits Requested Visits Authorized [id number] Closed Auto-Generate d Referral 09/19/2021 10/19/2022 1 [...] LUNG VOLUMES W/WO AIRWAY RESIST Landen Mahmood APRN.SAT INSTRUCTOR [address] [place] [address] [facility] [place] [address] [place] [address] Referral ID Status Reason Start Date Expiration Date V isits Requested Visits Authorized [id number] Closed Auto-Generate d Referral 09/21/2021 02/04/2022 1 1 Reason Comments Radio Gen A21 Reason Comments discuss test results Reason Comments Follow Up Chronic Migraine Reason Comments Palpitations Reason Comments Allergic Rhinitis Asthma Reason Comments coagulpathy Reason Comments Established Patient Reason Comments Appointment Download Pap Therapy Follow UP Reason Comments Parts Puller - Other Download Reason Comments Sleep Apnea Reason Comments Breast screening Reason Comments Patient Update Reason Comments Follow Up Migraine Specialty Diagnoses / Procedures Referred By Contac t Referred To Contact Diagnoses Chronic migraine without aura, intractable, without status migrainosus Procedures PROVIDER ORDERED FOLLOW UP OFFICE/OUTPATIENT NEW HIGH MDM 60-74 MINUTES Bhargavi Ramesh PA-C [address] [phone] Referral ID Status Reason Start Date Expiration Date V isits Requested Visits Authorized [id number] Closed PCP Requested Referral 01/18/2022 10/19/2022 1 [...] HIGH MDM 60-74 MINUTES Bhargavi Ramesh PA-C [address] [place] [address] Referral ID Status Reason Start Date Expiration Date V isits Requested Visits Authorized [id number] Closed PCP Requested Referral 04/16/2022 01/16/2023 1 1 Reason Comments PAP Therapy Follow Up DOWNLOAD Reason Comments Qualitative platelet disorder 5 month fo llow up Reason Comments Qualitative platelet disorder Reason Comments new patient Pt states since Oct 2020 she starts with a rash, then hives, tight chest, wheezing, and then her throat closes up. She believes it is essential oils, and products containing oil. Lavender, Lilac etc. Specialty Diagnoses / Procedures Referred By Sabas t Referred To Contact Allergy Diagnoses Allergic reaction, subsequent encounter Procedures GA OFFICE/OUTPATIENT NEW HIGH MDM 60 MINUTES Cas Dowell MD [address] [place] [address] Christy Painting MD [address] [facility] [place] [address] [place] [address] Referral ID Status Reason Start Date Expiration Date Visits Requested Visits Authorized [id number] Pending Review Specialty Services Required 09/26/2023 03/24/2024 1 1 Reason Comments Well Women Visit Specialty Diagnoses / Procedures Referred By Sabas harris Referred To Contact Diagnoses Moderate asthma without complication, unspecified whether persistent Procedures Full PFT Study With Bronchodilator Nabor Yancey, PIER HAND - SAT INSTRUCTOR [address] [facility] [address] [place] [address] Referral ID Status Reason Start Date Expiration Date V isits Requested Visits Authorized [id number] Not Required - RTA 12/04/2023 12/03/2024 1 1 Reason Comments Follow-up Er f/up allergic akshat ction Reason Comments Follow-up 6 m Reason Comments Follow-up 3m Reason Comments Med Refill Reason Comments Follow-up Tbh er f/upCovid + Head feel funny Reason Comments Follow-up Reason Onset Date Comments Med Refill 12/06/2023 Reason Comments Migraine Pt is here for a fol low up for migraines. No change in status, but has been having trouble getting insurance to cover medications. Ordered Prescriptions (unrec ognized section and content) [...] 1634 (Given - Provid er: Pallavi Galan RITUAL CIRCUMCISER) diphenhydrAMINE (BENADRYL) injection 50 mg (COMPLETED) 50 [...] DATE CREATED AUTHOR AUTHOR'S ORGANIZ ATION 04/26/2021 [facility] DATE CREATED AUTHOR AUTHOR'S ORGANIZ ATION 07/27/2021 [facility] DATE CREATED AUTHOR AUTHOR'S ORGANIZ ATION 12/22/[address] [facility] DATE CREATED AUTHOR AUTHOR'S ORGANIZ ATION 04/07/2022 [facility] DATE CREATED AUTHOR AUTHOR'S ORGANIZ ATION 06/17/2022 [facility] DATE CREATED AUTHOR AUTHOR'S ORGANIZ ATION 10/05/2023 [facility] DATE CREATED AUTHOR AUTHOR'S ORGANIZ ATION 10/18/2023 [facility] DATE CREATED AUTHOR AUTHOR'S ORGANIZ ATION 12/30/2023 [facility] DATE CREATED AUTHOR AUTHOR'S ORGANIZ ATION 01/05/2024 [facility] DATE CREATED AUTHOR AUTHOR'S ORGANIZ ATION 02/07/2024 [facility] DATE CREATED AUTHOR AUTHOR'S ORGANIZ ATION 02/28/2024 [facility] EP[facility] DATE CREATED AUTHOR AUTHOR'S ORGANIZ ATION 04/17/2024 [facility] DATE CREATED AUTHOR AUTHOR'S ORGANIZ ATION 05/03/2024 [facility] Care Teams (unrecognized sec tion and content) 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 Start Date End Date Cas Dowell MD PCP - General 09/04/11 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 Start Date End Date Cas Dowell MD PCP - General 09/04/11 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 Start Date End Date Cas Dowell PCP - General Family Practice 02/20/14 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 Start Date End Date Cas Dowell MD PCP - General 09/04/11 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 Start Date End Date Cas Dowell PCP - General Family Practice 02/20/14 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 Start Date End Date Cas Dowell PCP - General Family Practice 02/20/14 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 Start Date End Date Cas Dowell PCP - General Family Practice 02/20/14 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 Start Date End Date Cas Dowell PCP - General Family Practice 02/20/14 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 Start Date End Date Cas Dowell PCP - General Family Practice 02/20/14 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 Start Date End Date Cas Dowell PCP - General Family Practice 02/20/14 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 Start Date End Date Cas Dowell PCP - General Family Practice 02/20/14 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 Start Date End Date Cas Dowell MD PCP - General 09/04/11 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 Start Date End Date Cas Dowell PCP - General Family Practice 02/20/14 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 Start Date End Date Cas Dowell PCP - General Family Practice 02/20/14 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 Start Date End Date Cas Dowell PCP - General Family Practice 02/20/14 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 Start Date End Date Cas Dowell PCP - General Family Practice 02/20/14 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 Start Date End Date Cas Dowell PCP - General Family Practice 02/20/14 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 Start Date End Date Cas Dowell PCP - General Family Practice 02/20/14 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 Start Date End Date Cas Dowlel PCP - General Family Practice 02/20/14 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 Start Date End Date Cas Dowell PCP - General Family Practice 02/20/14 Sai Perez MD [address] [place], [place] 37[address] Primary Staff Physician Cardiology 07/21/21 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 Start Date End Date Cas Dowell PCP - General Family Practice 02/20/14 Sai Perze MD [address] [place] [address] Primary Staff Physician Cardiology 07/21/21 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 Start Date End Date Cas Dowell PCP - General Family Practice 02/20/14 Sai Perez MD [address] [place] [address] Primary Staff Physician Cardiology 07/21/21 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 Start Date End Date Cas Dowell PCP - General Family Practice 02/20/14 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 Start Date End Date Cas Dowell PCP - General Family Practice 02/20/14 Sai Perez MD [address] [place] [address] Primary Staff Physician Cardiology 07/21/21 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 Start Date End Date Cas Dowell PCP - General Family Practice 02/20/14 Sai Perez MD [address] [place] [address] Primary Staff Physician Cardiology 07/21/21 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 Start Date End Date Cas Dowell PCP - General Family Practice 02/20/14 Sai Perez MD [address] [place] [address] Primary Staff Physician Cardiology 07/21/21 Rubens Tim [address] [place], [place] [address] [id number] Referring PRESS READER 08/05/21 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 Start Date End Date Cas Dowell PCP - General Family Practice 02/20/14 Sai Perez MD [address] [place] [address] Primary Staff Physician Cardiology 07/21/21 [address] Tim [address] [place], [place] [address] [place] [id number] Referring PRESS READER 08/05/21 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 Start Date End Date Cas Dowell PCP - General Family Practice 02/20/14 Sai Perez MD [address] [place] [address] Primary Staff Physician Cardiology 07/21/[address] [place] [address] Referring PRESS READER 08/05/21 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 Start Date End Date Cas Dowell PCP - General Family Practice 02/20/14 Sai Perez MD [address] [place] [address] Primary Staff Physician Cardiology 07/21/[address] [place] [address] Referring PRESS READER 08/05/21 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 Start Date End Date Cas Dowell PCP - General Family Practice 02/20/14 Sai Perez MD [address] [place] [address] Primary Staff Physician Cardiology 07/21/[address] [place] [address] [place] [address] Referring PRESS READER 08/05/21 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 Start Date End Date Cas Dowell PCP - General [facility] Practice 02/20/14 Sai Perez MD [address] [place] [address] Primary Staff Physician Cardiology 07/21/[address] [place] [place] [address] Referring PRESS READER 08/05/21 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 Start Date End Date Cas Dowell PCP - General Family Practice 02/20/14 Sai Perez MD [address] [place] [address] Primary Staff Physician Cardiology 07/21/21 Rubens Tim, DO [address] [place] [address] Referring PRESS READER 08/05/21 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 Start Date End Date Cas Dowell PCP - General Family Practice 02/20/14 Sai Perez MD [address] [place] [address] Primary Staff Physician Cardiology 07/21/21 Rubens Tim, DO [address] [place], [id number] Referring PRESS READER 08/05/21 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 Start Date End Date Cas Dowell PCP - General Family Practice 02/20/14 Sai Perez MD [address] [place] [address] Primary Staff Physician Cardiology 07/21/21 Rubens Tim, DO [address] [place] [address] Referring PRESS READER 08/05/21 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 Start Date End Date Cas Dowell PCP - General Family Practice 02/20/14 Sai Perez MD [address] [place] [address] Primary Staff Physician Cardiology 07/21/21 Rubens Tim, DO [address] [place] [address] Referring PRESS READER 08/05/21 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 Start Date End Date Cas Dowell PCP - General Family Practice 02/20/14 Sai Perez MD [address] [place] [address] Primary Staff Physician Cardiology 07/21/21 Rubens Tim, DO [address] [place], [id number] Referring PRESS READER 08/05/21 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 Start Date End Date Cas Dowell MD PCP - General 09/04/11 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 Start Date End Date Cas Dowell PCP - General Family Practice 02/20/14 aSi Perez MD [address] [place] [address] Primary Staff Physician Cardiology 07/21/21 Rubens Tim, DO [address] [place], [id number] Referring PRESS READER 08/05/21 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 Start Date End Date Cas Dowell PCP - General [facility] Practice 02/20/14 Sai Perez MD [address] [place] [address] Primary Staff Physician Cardiology 07/21/21 Rubens Tim, DO [address] [place] [address] Referring PRESS READER 08/05/21 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 Start Date End Date Cas Dowell PCP - General Family Practice 02/20/14 Sai Perez MD [address] [place] [address] Primary Staff Physician Cardiology 07/21/21 Rubens Tim, DO [address] [place] [address] Referring PRESS READER 08/05/21 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 Start Date End Date Cas Dowell PCP - [facility] Practice 02/20/14 Sai Perez MD [address] [place] [address] Primary Staff Physician Cardiology 07/21/21 Rubens Tim, DO [address] [facility] [place] [address] Referring PRESS READER 08/05/21 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 Start Date End Date Cas Dowell PCP - [facility] Practice 02/20/14 Sai Perez MD [address] [place] [address] Primary Staff Physician Cardiology 07/21/21 Rubens Tim, DO [address] [place] [address] Referring PRESS READER 08/05/21 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 Start Date End Date Cas Dowell PCP - General Family Practice 02/20/14 Sai Perez MD [address] [place] [address] Primary Staff Physician Cardiology 07/21/21 Rubens Tim, DO [address] [place], [place] [id number] Referring PRESS READER 08/05/21 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 Start Date End Date Cas Dowell PCP - General Family Practice 02/20/14 Sai Perez MD [address] [place] [address] Primary Staff Physician Cardiology 07/21/21 Rubens Tim, DO [address] [facility] [address] [place], [id number] Referring PRESS READER 08/05/21 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 Start Date End Date Cas Dowell PCP - General Family Practice 02/20/14 Sai Perez MD [address] [place] [address] Primary Staff Physician Cardiology 07/21/21 Rubens Tim, DO [address] [place], [place] [id number] Referring PRESS READER 08/05/21 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 Start Date End Date Cas Dowell PCP - General Family Practice 02/20/14 Sai Perez MD [address] [place] [address] Primary Staff Physician Cardiology 07/21/21 Rubens Tim, DO [address] [place], [place] [id number] Referring PRESS READER 08/05/21 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 Start Date End Date Cas Dowell PCP - General Family Practice 02/20/14 Sai Perez MD [address] [place] [address] Primary Staff Physician Cardiology 07/21/21 Rubens Tim, DO [address] [place] [address] Referring PRESS READER 08/05/21 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 Start Date End Date Cas Dowell PCP - General Family Practice 02/20/14 Sai Perez MD [address] [place] [address] Primary Staff Physician Cardiology 07/21/21 Rubens Tim, DO [address] [place] [address] Referring PRESS READER 08/05/21 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 Start Date End Date Cas Dowell PCP - General Family Practice 02/20/14 Sai Perez MD [address] [place] [address] Primary Staff Physician Cardiology 07/21/21 Rubens Tim, DO [address] [place] [address] Referring PRESS READER 08/05/21 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 Start Date End Date Cas Dowell PCP - General Family Medicine 02/20/14 Sai Perez MD [address] [place] [address] Primary Staff Physician Cardiology 07/21/21 Rubens Tim, DO [address] [place], [id number] Referring PRESS READER 08/05/21 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 Start Date End Date Cas Dowell PCP - General Family Medicine 02/20/14 Sai Perez MD [address] [place] [address] Primary Staff Physician Cardiology 07/21/21 Rubens Tim, DO [address] [place], [id number] Referring PRESS READER 08/05/21 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 Start Date End Date Cas Dowell PCP - General Family Medicine 02/20/14 Sai Perez MD [address] [place] [address] Primary Staff Physician Cardiology 07/21/21 Rubens Tim, DO [address] [place], [id number] Referring PRESS READER 08/05/21 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 Start Date End Date Cas Dowell PCP - General Family Medicine 02/20/14 Sai Perez MD [address] [place] [address] Primary Staff Physician Cardiology 07/21/21 Rubens Tim, DO [address] [place] [address] Referring PRESS READER 08/05/21 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 Start Date End Date Cas Dowell PCP - General Family Medicine 02/20/14 Sai Perez MD [address] [place] [address] Primary Staff Physician Cardiology 07/21/21 Rubens Tim, DO [address] [place], [id number] Referring PRESS READER 08/05/21 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 Start Date End Date Cas Dowell PCP - General Family Medicine 02/20/14 Sai Perez MD [address] [place] [address] Primary Staff Physician Cardiology 07/21/21 Rubens Tim, DO [address] [place], [id number] Referring PRESS READER 08/05/21 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 Start Date End Date Cas Dowell PCP - General Family Medicine 02/20/14 Sai Perez MD [address] [place] [address] Primary Staff Physician Cardiology 07/21/21 Rubens Tim, DO [address] [place] [address] Referring PRESS READER 08/05/21 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 Start Date End Date Cas Dowell PCP - General Family Medicine 02/20/14 Sai Perez MD [address] [place] [address] Primary Staff Physician Cardiology 07/21/21 Rubens Tim, DO [address] [place] [address] Referring PRESS READER 08/05/21 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 Start Date End Date Cas Dowell PCP - General Family Medicine 02/20/14 Sai Perez MD [address] [place] [address] Primary Staff Physician Cardiology 07/21/21 Rubens Tim, DO [address] [place], [place] [address] Referring PRESS READER 08/05/21 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 Start Date End Date Cas Dowell PCP - General Family Medicine 02/20/14 Sai Perez MD [address] [place] [address] Primary Staff Physician Cardiology 07/21/21 Rubens Tim, DO [address] [place] [address] Referring PRESS READER 08/05/21 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 Start Date End Date Cas Dowell PCP - General Family Medicine 02/20/14 Sai Perez MD [address] [place] [address] Primary Staff Physician Cardiology 07/21/21 Rubens Tim, DO [address] [place] [address] Referring PRESS READER 08/05/21 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 Start Date End Date Cas Dowell PCP - General Family Medicine 02/20/14 Sai Perez MD [address] [place] [address] Primary Staff Physician Cardiology 07/21/21 Rubens Tim, DO [address] [place] [address] Referring PRESS READER 08/05/21 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 Start Date End Date Cas Dowell PCP - General Family Medicine 02/20/14 Sai Perez MD [address] [place] [address] Primary Staff Physician Cardiology 07/21/21 Rubens Tim, DO [address] [place] [address] Referring PRESS READER 08/05/21 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 Start Date End Date Cas Dowell MD PCP - General 09/04/11 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 Start Date End Date Cas Dowell PCP - General Family Medicine 02/20/14 Sai Perez MD [address] [place] [address] Primary Staff Physician Cardiology 07/21/21 Rubens Tim, DO [address] [place], [place] [address] Referring PRESS READER 08/05/21 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 Start Date End Date Cas Dowell PCP - General Family Medicine 02/20/14 Sai Perez MD [address] [place] [address] Primary Staff Physician Cardiology 07/21/21 Rubens Tim, DO [address] [place], [place] [address] Referring PRESS READER 08/05/21 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 Start Date End Date Cas Dowell PCP - General Family Medicine 02/20/14 Sai Perez MD [address] [place] [address] Primary Staff Physician Cardiology 07/21/21 Rubens Tim, DO [address] [place], [place] [address] Referring PRESS READER 08/05/21 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 Start Date End Date Cas Dowell PCP - General Family Medicine 02/20/14 Sai Perez MD [address] [place] [address] Primary Staff Physician Cardiology 07/21/21 Rubens Tim, DO [address] [place], [id number] Referring PRESS READER 08/05/21 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 Start Date End Date Cas Dowell PCP - General Family Medicine 02/20/14 Sai Perez MD [address] [place] [address] Primary Staff Physician Cardiology 07/21/21 Rubens Tim, DO [address] [place], [place] [address] Referring PRESS READER 08/05/21 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 Start Date End Date Cas Dowell PCP - General [facility] Medicine 02/20/14 Sai Perez MD [address] [place] [address] Primary Staff Physician Cardiology 07/21/21 Rubens Tim, DO [address] [place], [place] [address] Referring PRESS READER 08/05/21 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 Start Date End Date Cas Dowell PCP - General Family Medicine 02/20/14 Sai Perez MD [address] [place] [address] Primary Staff Physician Cardiology 07/21/21 Rubens Tim, DO [address] [place], [id number] Referring PRESS READER 08/05/21 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 Start Date End Date Cas Dowell PCP - General Family Medicine 02/20/14 Sai Perez MD [address] [place] [address] Primary Staff Physician Cardiology 07/21/21 Rubens Tim, DO [address] [facility] [place] [address] Referring PRESS READER 08/05/21 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 Start Date End Date Cas Dowell PCP - General Family Medicine 02/20/14 Sai Perez MD [address] [place] [address] Primary Staff Physician Cardiology 07/21/21 Rubens Tim, DO [address] [facility] [address] [place], [place] [address] Referring PRESS READER 08/05/21 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 Start Date End Date Cas Dowell PCP - General Family Medicine 02/20/14 Sai Perez MD [address] [place] [address] Primary Staff Physician Cardiology 07/21/21 Rubens Tim DO [address] [place] [address] [address] [place], [id number] Referring PRESS READER 08/05/21 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 Start Date End Date Cas Dowell MD PCP - General Family Medicine 12/06/22 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 Start Date End Date Cas Dowell PCP - General Family Medicine 02/20/14 Sai Perez MD [address] [place], [place] [address] Primary Staff Physician Cardiology 07/21/21 Rubens Tim DO [address] [facility] [place] [place] [address] Referring Eviscerator 08/05/21 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 Start Date End Date Cas Dowell PCP - General Family Medicine 02/20/14 Sai Perez MD [address] [facility] [place], [place] [address] Primary Staff Physician Cardiology 07/21/21 Rubens Tim DO [address] [place] [address] Referring Eviscerator 08/05/21 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 Start Date End Date Cas Dowell MD [address] [place] [address] PCP - General Family Medicine 04/09/23 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 Start Date End Date Cas Dowell MD [address] [place] [address] PCP - General Family Medicine 04/09/23 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 Start Date End Date Cas Dowell MD [address] [place] [address] PCP - General Family Medicine 04/09/23 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 Start Date End Date Cas Dowell MD [address] [place] [address] PCP - General [facility] Medicine 04/09/23 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 Start Date End Date Cas Dowell MD [address] [place] [address] PCP - General [facility] Medicine 04/09/23 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 Start Date End Date Cas Dowell MD PCP - General 09/04/11 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 Start Date End Date Cas Dowell MD PCP General 09/04/11 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 Start Date End Date Cas Dowell MD [address] [place] [address] PCP - General [facility] Medicine 04/09/23 Cas Dowell MD [address] [place] [address] PCP - [employer] 11/06/23 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 Start Date End Date Cas Dowell MD [address] [place] [address] PCP - General [facility] Medicine 04/09/23 Cas Dowell MD [address] [place] [address] PCP - [employer] 06/06/23 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 Start Date End Date Cas Dowell MD [address] [place] [address] PCP - General Family Medicine 04/09/23 Cas Dowell MD [address] [place] [address] PCP - [employer] 06/06/23 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 Start Date End Date Cas Dowell MD [address] [place] [address] PCP - General Family Medicine 04/09/23 Cas Dowell MD [address] [place] [address] PCP - [employer] 06/06/23 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 Start Date End Date Cas Dowell MD [address] [place] [address] PCP - General Family Medicine 04/09/23 Cas Dowell MD [address] [place] [address] PCP - [employer] 06/06/23 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 Start Date End Date Cas Dowell MD [address] [place] [address] PCP - General Family Medicine 04/09/23 Cas Dowell MD [address] [place] [address] PCP - [employer] 06/06/23 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 Start Date End Date Cas Dowell MD [address] [place] [address] PCP - General Family Medicine 04/09/23 Cas Dowell MD [address] [place] [address] PCP - [employer] 11/06/23 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 Start Date End Date Cas Dowell MD [address] [place] [address] PCP - General Family Medicine 04/09/23 Cas Dowell MD [address] [place] [address] PCP - [employer] 11/06/23 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 Start Date End Date Cas Dowell MD [address] [place] [address] PCP - General Family Medicine 04/09/23 Cas Dowell MD [address] [place] [address] PCP - [employer] 11/06/23 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 Start Date End Date Cas Dowell MD [address] [place] [address] PCP - General Family Medicine 04/09/23 Cas Dowell MD [address] [place] [address] PCP - [employer] 11/06/23 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 Start Date End Date Cas Dowell MD PCP - General Family Medicine 11/18/20 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 Start Date End Date Cas Dowell MD [address] [place] [address] PCP - General Family Medicine 04/09/23 Cas Dowell MD [address] [place] [address] PCP - [employer] 11/06/23 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 Start Date End Date Cas Dowell MD [address] [place] [address] PCP - General Family Medicine 04/09/23 Cas Dowell MD [address] [place] [address] PCP - [employer] 11/06/23 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 Start Date End Date Cas Dowell MD [address] [place] [address] PCP - General Family Medicine 11/18/20 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 Start Date End Date Cas Dowell MD [address] [place] [address] PCP - General Family Medicine 11/18/20 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 Start Date End Date Cas Dowell MD [address] [place] [place] [address] PCP - General Family Medicine 11/18/20 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 Start Date End Date Cas Dowell MD [address] [place] [address] PCP - General Family Medicine 11/18/20 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 Start Date End Date Cas Dowell MD [address] [place] [address] PCP - General Family Medicine 11/18/20 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 Start Date End Date Cas Dowell MD PCP - General Family Medicine 11/18/20 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 Start Date End Date Cas Dowell MD PCP - General Family Medicine 11/18/20 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 Start Date End Date Cas Dowell MD PCP - General Family Medicine 11/18/20 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 Start Date End Date Cas Dowell MD PCP - General Family Medicine 11/18/20 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 Start Date End Date Cas Dowell MD PCP - General Family Medicine 11/18/20 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 Start Date End Date Cas Dowell MD [address] [facility] [address] PCP - General Family Medicine 04/09/23 Cas Dowell MD [address] [place] [address] PCP - [employer] 11/06/23 Source Comments (unrecognize d section and content) In the event this informatio n is protected by the Federal Confidentiality of Alcohol and Drug Abuse Patient Records regulations: The Federal rules restrict any use of the information to criminally investigate or prosecute any alcohol or drug abuse patient.[facility] the event this information is protected by the Federal Confidentiality of Alcohol and Drug Abuse Patient Records regulations: The Federal rules restrict any use of the information to criminally investigate or prosecute any alcohol or drug abuse patient.[facility] CenterIn the event this information is protected by the Federal Confidentiality of Alcohol and Drug Abuse Patient Records regulations: The Federal rules restrict any use of the information to criminally investigate or prosecute any alcohol or drug abuse patient.[facility] CenterIn the event this information is protected by the Federal Confidentiality of Alcohol and Drug Abuse Patient Records regulations: The Federal rules restrict any use of the information to criminally investigate or prosecute any alcohol or drug abuse patient.[facility] CenterIn the event this information is protected by the Federal Confidentiality of Alcohol and Drug Abuse Patient Records regulations: The Federal rules restrict any use of the information to criminally investigate or prosecute any alcohol or drug abuse patient.[facility] CenterIn the event this information is protected by the Federal Confidentiality of Alcohol and Drug Abuse Patient Records regulations: The Federal rules restrict any use of the information to criminally investigate or prosecute any alcohol or drug abuse patient.[facility] CenterIn the event this information is protected by the Federal Confidentiality of Alcohol and Drug Abuse Patient Records regulations: The Federal rules restrict any use of the information to criminally investigate or prosecute any alcohol or drug abuse patient.[facility] CenterIn the event this information is protected by the Federal Confidentiality of Alcohol and Drug Abuse Patient Records regulations: The Federal rules restrict any use of the information to criminally investigate or prosecute any alcohol or drug abuse patient.[facility] CenterIn the event this information is protected by the Federal Confidentiality of Alcohol and Drug Abuse Patient Records regulations: The Federal rules restrict any use of the information to criminally investigate or prosecute any alcohol or drug abuse patient.[facility] CenterIn the event this information is protected by the Federal Confidentiality of Alcohol and Drug Abuse Patient Records regulations: The Federal rules restrict any use of the information to criminally investigate or prosecute any alcohol or drug abuse patient.[facility] CenterIn the event this information is protected by the Federal Confidentiality of Alcohol and Drug Abuse Patient Records regulations: The Federal rules restrict any use of the information to criminally investigate or prosecute any alcohol or drug abuse patient.[facility] CenterIn the event this information is protected by the Federal Confidentiality of Alcohol and Drug Abuse Patient Records regulations: The Federal rules restrict any use of the information to criminally investigate or prosecute any alcohol or drug abuse patient.[facility] CenterIn the event this information is protected by the Federal Confidentiality of Alcohol and Drug Abuse Patient Records regulations: The Federal rules restrict any use of the information to criminally investigate or prosecute any alcohol or drug abuse patient.[facility] CenterIn the event this information is protected by the Federal Confidentiality of Alcohol and Drug Abuse Patient Records regulations: The Federal rules restrict any use of the information to criminally investigate or prosecute any alcohol or drug abuse patient.[facility] CenterIn the event this information is protected by the Federal Confidentiality of Alcohol and Drug Abuse Patient Records regulations: The Federal rules restrict any use of the information to criminally investigate or prosecute any alcohol or drug abuse patient.[facility] CenterIn the event this information is protected by the Federal Confidentiality of Alcohol and Drug Abuse Patient Records regulations: The Federal rules restrict any use of the information to criminally investigate or prosecute any alcohol or drug abuse patient.[facility] CenterIn the event this information is protected by the Federal Confidentiality of Alcohol and Drug Abuse Patient Records regulations: The Federal rules restrict any use of the information to criminally investigate or prosecute any alcohol or drug abuse patient.[facility] CenterIn the event this information is protected by the Federal Confidentiality of Alcohol and Drug Abuse Patient Records regulations: The Federal rules restrict any use of the information to criminally investigate or prosecute any alcohol or drug abuse patient.[facility] CenterIn the event this information is protected by the Federal Confidentiality of Alcohol and Drug Abuse Patient Records regulations: The Federal rules restrict any use of the information to criminally investigate or prosecute any alcohol or drug abuse patient.[facility] CenterIn the event this information is protected by the Federal Confidentiality of Alcohol and Drug Abuse Patient Records regulations: The Federal rules restrict any use of the information to criminally investigate or prosecute any alcohol or drug abuse patient.[facility] CenterIn the event this information is protected by the Federal Confidentiality of Alcohol and Drug Abuse Patient Records regulations: The Federal rules restrict any use of the information to criminally investigate or prosecute any alcohol or drug abuse patient.[facility] CenterIn the event this information is protected by the Federal Confidentiality of Alcohol and Drug Abuse Patient Records regulations: The Federal rules restrict any use of the information to criminally investigate or prosecute any alcohol or drug abuse patient.[facility] CenterIn the event this information is protected by the Federal Confidentiality of Alcohol and Drug Abuse Patient Records regulations: The Federal rules restrict any use of the information to criminally investigate or prosecute any alcohol or drug abuse patient.[facility] CenterIn the event this information is protected by the Federal Confidentiality of Alcohol and Drug Abuse Patient Records regulations: The Federal rules restrict any use of the information to criminally investigate or prosecute any alcohol or drug abuse patient.[facility] CenterIn the event this information is protected by the Federal Confidentiality of Alcohol and Drug Abuse Patient Records regulations: The Federal rules restrict any use of the information to criminally investigate or prosecute any alcohol or drug abuse patient.[facility] CenterIn the event this information is protected by the Federal Confidentiality of Alcohol and Drug Abuse Patient Records regulations: The Federal rules restrict any use of the information to criminally investigate or prosecute any alcohol or drug abuse patient.[facility] CenterIn the event this information is protected by the Federal Confidentiality of Alcohol and Drug Abuse Patient Records regulations: The Federal rules restrict any use of the information to criminally investigate or prosecute any alcohol or drug abuse patient.[facility] CenterIn the event this information is protected by the Federal Confidentiality of Alcohol and Drug Abuse Patient Records regulations: The Federal rules restrict any use of the information to criminally investigate or prosecute any alcohol or drug abuse patient.[facility] CenterIn the event this information is protected by the Federal Confidentiality of Alcohol and Drug Abuse Patient Records regulations: The Federal rules restrict any use of the information to criminally investigate or prosecute any alcohol or drug abuse patient.[facility] CenterIn the event this information is protected by the Federal Confidentiality of Alcohol and Drug Abuse Patient Records regulations: The Federal rules restrict any use of the information to criminally investigate or prosecute any alcohol or drug abuse patient.[facility] CenterIn the event this information is protected by the Federal Confidentiality of Alcohol and Drug Abuse Patient Records regulations: The Federal rules restrict any use of the information to criminally investigate or prosecute any alcohol or drug abuse patient.[facility] CenterIn the event this information is protected by the Federal Confidentiality of Alcohol and Drug Abuse Patient Records regulations: The Federal rules restrict any use of the information to criminally investigate or prosecute any alcohol or drug abuse patient.[facility] CenterIn the event this information is protected by the Federal Confidentiality of Alcohol and Drug Abuse Patient Records regulations: The Federal rules restrict any use of the information to criminally investigate or prosecute any alcohol or drug abuse patient.[facility] CenterIn the event this information is protected by the Federal Confidentiality of Alcohol and Drug Abuse Patient Records regulations: The Federal rules restrict any use of the information to criminally investigate or prosecute any alcohol or drug abuse patient.[facility] CenterIn the event this information is protected by the Federal Confidentiality of Alcohol and Drug Abuse Patient Records regulations: The Federal rules restrict any use of the information to criminally investigate or prosecute any alcohol or drug abuse patient.[facility] CenterIn the event this information is protected by the Federal Confidentiality of Alcohol and Drug Abuse Patient Records regulations: The Federal rules restrict any use of the information to criminally investigate or prosecute any alcohol or drug abuse patient.[facility] CenterIn the event this information is protected by the Federal Confidentiality of Alcohol and Drug Abuse Patient Records regulations: The Federal rules restrict any use of the information to criminally investigate or prosecute any alcohol or drug abuse patient.[facility] CenterIn the event this information is protected by the Federal Confidentiality of Alcohol and Drug Abuse Patient Records regulations: The Federal rules restrict any use of the information to criminally investigate or prosecute any alcohol or drug abuse patient.[facility] CenterIn the event this information is protected by the Federal Confidentiality of Alcohol and Drug Abuse Patient Records regulations: The Federal rules restrict any use of the information to criminally investigate or prosecute any alcohol or drug abuse patient.[facility] CenterIn the event this information is protected by the Federal Confidentiality of Alcohol and Drug Abuse Patient Records regulations: The Federal rules restrict any use of the information to criminally investigate or prosecute any alcohol or drug abuse patient.[facility] CenterIn the event this information is protected by the Federal Confidentiality of Alcohol and Drug Abuse Patient Records regulations: The Federal rules restrict any use of the information to criminally investigate or prosecute any alcohol or drug abuse patient.[facility] CenterIn the event this information is protected by the Federal Confidentiality of Alcohol and Drug Abuse Patient Records regulations: The Federal rules restrict any use of the information to criminally investigate or prosecute any alcohol or drug abuse patient.[facility] CenterIn the event this information is protected by the Federal Confidentiality of Alcohol and Drug Abuse Patient Records regulations: The Federal rules restrict any use of the information to criminally investigate or prosecute any alcohol or drug abuse patient.[facility] CenterIn the event this information is protected by the Federal Confidentiality of Alcohol and Drug Abuse Patient Records regulations: The Federal rules restrict any use of the information to criminally investigate or prosecute any alcohol or drug abuse patient.[facility] CenterIn the event this information is protected by the Federal Confidentiality of Alcohol and Drug Abuse Patient Records regulations: The Federal rules restrict any use of the information to criminally investigate or prosecute any alcohol or drug abuse patient.[facility] CenterIn the event this information is protected by the Federal Confidentiality of Alcohol and Drug Abuse Patient Records regulations: The Federal rules restrict any use of the information to criminally investigate or prosecute any alcohol or drug abuse patient.[facility] CenterIn the event this information is protected by the Federal Confidentiality of Alcohol and Drug Abuse Patient Records regulations: The Federal rules restrict any use of the information to criminally investigate or prosecute any alcohol or drug abuse patient.[facility] CenterIn the event this information is protected by the Federal Confidentiality of Alcohol and Drug Abuse Patient Records regulations: The Federal rules restrict any use of the information to criminally investigate or prosecute any alcohol or drug abuse patient.[facility] CenterIn the event this information is protected by the Federal Confidentiality of Alcohol and Drug Abuse Patient Records regulations: The Federal rules restrict any use of the information to criminally investigate or prosecute any alcohol or drug abuse patient.[facility] CenterIn the event this information is protected by the Federal Confidentiality of Alcohol and Drug Abuse Patient Records regulations: The Federal rules restrict any use of the information to criminally investigate or prosecute any alcohol or drug abuse patient.[facility] CenterIn the event this information is protected by the Federal Confidentiality of Alcohol and Drug Abuse Patient Records regulations: The Federal rules restrict any use of the information to criminally investigate or prosecute any alcohol or drug abuse patient.[facility] CenterIn the event this information is protected by the Federal Confidentiality of Alcohol and Drug Abuse Patient Records regulations: The Federal rules restrict any use of the information to criminally investigate or prosecute any alcohol or drug abuse patient.[facility] CenterIn the event this information is protected by the Federal Confidentiality of Alcohol and Drug Abuse Patient Records regulations: The Federal rules restrict any use of the information to criminally investigate or prosecute any alcohol or drug abuse patient.[facility] CenterIn the event this information is protected by the Federal Confidentiality of Alcohol and Drug Abuse Patient Records regulations: The Federal rules restrict any use of the information to criminally investigate or prosecute any alcohol or drug abuse patient.[facility] CenterIn the event this information is protected by the Federal Confidentiality of Alcohol and Drug Abuse Patient Records regulations: The Federal rules restrict any use of the information to criminally investigate or prosecute any alcohol or drug abuse patient.[facility] CenterIn the event this information is protected by the Federal Confidentiality of Alcohol and Drug Abuse Patient Records regulations: The Federal rules restrict any use of the information to criminally investigate or prosecute any alcohol or drug abuse patient.[facility] CenterIn the event this information is protected by the Federal Confidentiality of Alcohol and Drug Abuse Patient Records regulations: The Federal rules restrict any use of the information to criminally investigate or prosecute any alcohol or drug abuse patient.[facility] CenterIn the event this information is protected by the Federal Confidentiality of Alcohol and Drug Abuse Patient Records regulations: The Federal rules restrict any use of the information to criminally investigate or prosecute any alcohol or drug abuse patient.[facility] CenterIn the event this information is protected by the Federal Confidentiality of Alcohol and Drug Abuse Patient Records regulations: The Federal rules restrict any use of the information to criminally investigate or prosecute any alcohol or drug abuse patient.[facility] CenterIn the event this information is protected by the Federal Confidentiality of Alcohol and Drug Abuse Patient Records regulations: The Federal rules restrict any use of the information to criminally investigate or prosecute any alcohol or drug abuse patient.[facility] CenterIn the event this information is protected by the Federal Confidentiality of Alcohol and Drug Abuse Patient Records regulations: The Federal rules restrict any use of the information to criminally investigate or prosecute any alcohol or drug abuse patient.[facility] CenterIn the event this information is protected by the Federal Confidentiality of Alcohol and Drug Abuse Patient Records regulations: The Federal rules restrict any use of the information to criminally investigate or prosecute any alcohol or drug abuse patient.[facility] CenterIn the event this information is protected by the Federal Confidentiality of Alcohol and Drug Abuse Patient Records regulations: The Federal rules restrict any use of the information to criminally investigate or prosecute any alcohol or drug abuse patient.[facility] CenterIn the event this information is protected by the Federal Confidentiality of Alcohol and Drug Abuse Patient Records regulations: The Federal rules restrict any use of the information to criminally investigate or prosecute any alcohol or drug abuse patient.[facility] CenterIn the event this information is protected by the Federal Confidentiality of Alcohol and Drug Abuse Patient Records regulations: The Federal rules restrict any use of the information to criminally investigate or prosecute any alcohol or drug abuse patient.[facility] CenterIn the event this information is protected by the Federal Confidentiality of Alcohol and Drug Abuse Patient Records regulations: The Federal rules restrict any use of the information to criminally investigate or prosecute any alcohol or drug abuse patient.[facility] CenterIn the event this information is protected by the Federal Confidentiality of Alcohol and Drug Abuse Patient Records regulations: The Federal rules restrict any use of the information to criminally investigate or prosecute any alcohol or drug abuse patient.[facility] CenterIn the event this information is protected by the Federal Confidentiality of Alcohol and Drug Abuse Patient Records regulations: The Federal rules restrict any use of the information to criminally investigate or prosecute any alcohol or drug abuse patient.[facility] CenterIn the event this information is protected by the Federal Confidentiality of Alcohol and Drug Abuse Patient Records regulations: The Federal rules restrict any use of the information to criminally investigate or prosecute any alcohol or drug abuse patient.[facility] CenterIn the event this information is protected by the Federal Confidentiality of Alcohol and Drug Abuse Patient Records regulations: The Federal rules restrict any use of the information to criminally investigate or prosecute any alcohol or drug abuse patient.[facility] CenterIn the event this information is protected by the Federal Confidentiality of Alcohol and Drug Abuse Patient Records regulations: The Federal rules restrict any use of the information to criminally investigate or prosecute any alcohol or drug abuse patient.[facility] CenterIn the event this information is protected by the Federal Confidentiality of Alcohol and Drug Abuse Patient Records regulations: The Federal rules restrict any use of the information to criminally investigate or prosecute any alcohol or drug abuse patient.[facility] CenterIn the event this information is protected by the Federal Confidentiality of Alcohol and Drug Abuse Patient Records regulations: The Federal rules restrict any use of the information to criminally investigate or prosecute any alcohol or drug abuse patient.[facility] CenterIn the event this information is protected by the Federal Confidentiality of Alcohol and Drug Abuse Patient Records regulations: The Federal rules restrict any use of the information to criminally investigate or prosecute any alcohol or drug abuse patient.[facility] CenterIn the event this information is protected by the Federal Confidentiality of Alcohol and Drug Abuse Patient Records regulations: The Federal rules restrict any use of the information to criminally investigate or prosecute any alcohol or drug abuse patient.[facility] CenterIn the event this information is protected by the Federal Confidentiality of Alcohol and Drug Abuse Patient Records regulations: The Federal rules restrict any use of the information to criminally investigate or prosecute any alcohol or drug abuse patient.[facility] CenterIn the event this information is protected by the Federal Confidentiality of Alcohol and Drug Abuse Patient Records regulations: The Federal rules restrict any use of the information to criminally investigate or prosecute any alcohol or drug abuse patient.[facility] CenterIn the event this information is protected by the Federal Confidentiality of Alcohol and Drug Abuse Patient Records regulations: The Federal rules restrict any use of the information to criminally investigate or prosecute any alcohol or drug abuse patient.[facility] CenterIn the event this information is protected by the Federal Confidentiality of Alcohol and Drug Abuse Patient Records regulations: The Federal rules restrict any use of the information to criminally investigate or prosecute any alcohol or drug abuse patient.[facility] CenterIn the event this information is protected by the Federal Confidentiality of Alcohol and Drug Abuse Patient Records regulations: The Federal rules restrict any use of the information to criminally investigate or prosecute any alcohol or drug abuse patient.[facility] CenterIn the event this information is protected by the Federal Confidentiality of Alcohol and Drug Abuse Patient Records regulations: The Federal rules restrict any use of the information to criminally investigate or prosecute any alcohol or drug abuse patient.[facility] CenterIn the event this information is protected by the Federal Confidentiality of Alcohol and Drug Abuse Patient Records regulations: The Federal rules restrict any use of the information to criminally investigate or prosecute any alcohol or drug abuse patient.[facility] CenterIn the event this information is protected by the Federal Confidentiality of Alcohol and Drug Abuse Patient Records regulations: The Federal rules restrict any use of the information to criminally investigate or prosecute any alcohol or drug abuse patient.[facility] CenterIn the event this information is protected by the Federal Confidentiality of Alcohol and Drug Abuse Patient Records regulations: The Federal rules restrict any use of the information to criminally investigate or prosecute any alcohol or drug abuse patient.[facility] CenterIn the event this information is protected by the Federal Confidentiality of Alcohol and Drug Abuse Patient Records regulations: The Federal rules restrict any use of the information to criminally investigate or prosecute any alcohol or drug abuse patient.[facility] CenterIn the event this information is protected by the Federal Confidentiality of Alcohol and Drug Abuse Patient Records regulations: The Federal rules restrict any use of the information to criminally investigate or prosecute any alcohol or drug abuse patient.[facility] FOR RECORDS PERTAINING TO PATIENTS [...] BE BASED ON THE PRIMARY CLINICAL RECORDS. [facility] [employer] [facility]. provides no warranty or guarantee of the accuracy or completeness of information in this document.
== END 2024-05-07 19:40 | disposition home or self-care (01) ==
LOC: SLEEP 19:39
PROVIDERS: PCP Family Medicine; Visit Provider Student in an Organized Health Care Education/Training Program
DX: G47.33 Obstructive sleep apnea (adult) (pediatric) (principal)
CPT/HCPCS: 95811

== ENCOUNTER 2024-08-11 10:21 | Outpatient (OUT) | payer BC, SELFPAY ==
--- OUTSIDE RECORDS SUMMARY | 2024-08-11 08:52 | XMS_ITS ---
Author Name Auto Generated Organization OHIP Support Name Relationship Address Phone SEAN TRAN Next of Kin Unknown [phone] SEAN TRAN Next of Kin Unknown [phone] SEAN TRAN Next of Kin Unknown [phone] SEAN TRAN Next of Kin [address] [place] [address] + SEAN TRAN Next of Kin Unknown [phone] Sean Tran Next of Kin 60[address] [facility] [address] [place] [address] + SEAN TRAN Next of Kin Unknown [phone] SEAN TARN Next of Kin Unknown [phone] SEAN TRAN Next of Kin Unknown [phone] SEAN TRAN Next of Kin Unknown [phone] [place] [address] [phone] SEAN TRAN Next of Kin 6060 [facility] [address] [place] [address] + ALEXUS TRAN Next of Kin Unknown Unavailabl e SEAN TRAN Next of Kin Unknown [phone] SEAN TRAN Next of Kin Unknown [phone] SEAN TRAN Next of Kin Unknown [phone] [place] [address] +[phone] SEAN TRAN Next of Kin [address] [place] [address] + ALEXUS TRAN Next of Kin Unknown Unavailabl e Sean Tran Next of Kin [address] [place] [address] + MARC, SEAN Next of Kin Unknown [phone] [place] [address] +[phone] MARC, SEAN Next of Kin [address] [place] [address] + MARC, ALEXUS Next of Kin Unknown Unavailabl e MARC, SEAN Next of Kin Unknown +[phone] MARC, SEAN Next of Kin Unknown +[phone] MARC, SEAN Next of Kin Unknown +[phone] MARC, SEAN Next of Kin Unknown [phone] MARC, SEAN Next of Kin Unknown [phone] MARC, SEAN Next of Kin Unknown [phone] MARC, SEAN Next of Kin Unknown [phone] MARC, SEAN Next of Kin Unknown +[phone] MARC, SEAN Next of Kin Unknown +[phone] MARC, SEAN Next of Kin Unknown +[phone] MARC, SEAN Next of Kin Unknown +[phone] MARC, SEAN Next of Kin Unknown +[phone] Care Team Providers Care Amalgamator Name Role Phone ABIEL MATTHEW Referring Unavailable VIPUL, ABIEL Referring Unavailable VIPUL, ABIEL Referring Unavailable POPEYE KENNEDY Attending Unavailable VIPUL, ABIEL Referring Unavailable ABELSID Referring Unavailable VIPUL, ABIEL Referring Unavailable VIPUL, ABIEL Referring Unavailable VIPUL, ABIEL Referring Unavailable VIPUL, ABIEL Referring Unavailable VIPUL, ABIEL Referring Unavailable VIPUL, ABIEL Referring Unavailable VIPUL, ABIEL Referring Unavailable VIPUL, ABIEL Referring Unavailable GEORGE, RUBENS Attending Unavailable GEORGE, RUBENS Attending Unavailable NADERER, CAS Attending Unavailable NADERER, CAS Attending Unavailable RAMBASECHRISTY Peña Attending Unavailable NADERER, CAS Referring Unavailable GEORGE, RUBENS Attending Unavailable NADERERCAS Attending Unavailable NADERER, CAS Attending Unavailable TYRONE MAZARIEGOS Attending Unavailable NADERER, CAS Attending Unavailable OrzeSelma fitzgerald Attending Unavailable ABHYANKAR, JAYME Referring Unavailable ABHYANKAR, JAYME Attending Unavailable NADERER, CAS A Primary Care Unavailable ABHYANKAR, JAYME Referring Unavailable NADERER, CAS Guzman Primary Care Unavailable William PEREZ, Phillip Guerra Attending Unavailable Grayson PEREZ, Cas Wan Primary Care Unavail able Grayson PEREZ, Cas Savage Primary Care Unavail able William PEREZ, Phillip Guerra Attending Unavailable Grayson PEREZ, Cas Gutierrezony Primary Care Unavail able William PEREZ, Phillip Guerra Attending Unavailable PRESTON FRASER Referring Unavailable NADERER, CAS SAVAGE Primary Care Unavailabl e YOVANNY HERNANDEZ Referring Unavailable NADERER, CAS SAVAGE Primary Care Unavailabl e YAO, KAITLYNN Razo Attending Unavailable NADERER, CAS Referring Unavailable NADERER, CAS Primary Care Unavailable MARNI LESTER Attending Unavailable NADERER, CAS Referring Unavailable NADERER, CAS Primary Care Unavailable YAO, KAITLYNN E Referring Unavailable NADERER, CAS Primary Care Unavailable MARNI LESTER Attending Unavailable NADERER, CAS Referring Unavailable NADERER, CAS Primary Care Unavailable PROBLEMS DATE TYPE CONDITION / CODE ATTENDING STATUS [facility] 07/09/2024 Admitting Diagnosis Palpitations / R00.2(ICD-10) [facility] 03/02/2021 Unknown Other symptoms a nd signs involving cognitive functions and awareness / R41.89(ICD-10) [facility] 05/19/2021 Unknown Migraine without aura, not intractable, without status migrainosus / G43.009(ICD-10) [facility] 03/02/2021 Unknown Hypersomnia, unspecified / G47.10(ICD-10) [facility] 03/02/2021 Unknown Sleep apnea, unspecified / G47.30(ICD-10) [facility] 03/02/2021 Unknown Other muscle spa sm / M62.838(ICD-10) [facility] 03/02/2021 Unknown Cervicalgia / M54.2(ICD-10) [facility] 03/02/2021 Unknown Other speech disturbances / R47.89(ICD-10) [facility] 03/02/2021 Unknown Other amnesia / R41.3(ICD-10) MARNI LESTER [facility] 03/02/2021 Unknown Myalgic encephalomyelitis/ch ronic fatigue syndrome / G93.32(ICD-10) [facility] 03/02/2021 Unknown Post covid-19 condition, unspecified / U09.9(ICD-10) [facility] 03/02/2021 Unknown Unspecified symp toms and signs involving the nervous system / R29.90(ICD-10) [facility] 12/24/2020 Unknown Obstructive slee p apnea (adult) (pediatric) / G47.33(ICD-10) [facility] 01/02/2024 Unknown Migraine / FREETEXT(AOF) [facility] 12/27/2023 Admitting diagnosis Encounter for pre-employment examination / Z02.1(ICD-10) NA [facility] 12/19/2023 Unknown Unspecified asth ma, uncomplicated / J45.909(ICD-10) [facility] 11/22/2023 Unknown Autoimmune thyroiditis / E06.3(ICD-10) KAITLYNN YAO [facility] 11/22/2023 Unknown Follow-up / FREETEXT(AOF) KAITLYNN YAO [facility] 07/21/2022 Admitting Diagnosis Presence of other cardiac implants and grafts / Z95.818(ICD-10) POPEYE KENNEDY Active [facility] 05/24/2022 Admitting Diagnosis Syncope and collapse / R55(ICD-10) POPEYE KENNEDY Active [facility] 05/24/2022 Admitting Diagnosis Orthostatic hypotension / I95.1(ICD-10) POPEYE KENNEDY Active [facility] PROCEDURES No Procedure Records Found RESULTS ORDERS ONLY Observed: 07/09/2024 12:00 AM Status: COMPLETED Source: [facility] [id number] Vijaya Tran 1 1985 F Date Provider Department Center 07/09/2024 325-KENYA HORAN [facility] CARD [facility] HeartVAS Family History Problem [...] Father Sister Mother's Sister Maternal Grandmother Son AliveSon AliveSon Alive 36 Observed: 05/23/2024 11:56 AM Status: COMPLETED Source: [facility] Pt is unable to find any pyr idostigmine ER 180 mg in stock. She was on the short acting last time this happened. Short acting sent to the pharmacy 36 Observed: 05/23/2024 11:33 AM Status: COMPLETED Source: [facility] Pt notified the pyridostigmi ne ER is on back order. She is going to call around to see if she can find it in stock TSH Collected: 12:46 PM Status: COMPLETED Source: [facility] TYPE CODE TESTS RESULT OUT OF RANGE REFERENCE UNITS LAB TSH(LOINC) TSH 0.44 Low 0.49-4.67 uIU/mL Performed By: #### 3016-3, 3 051-0, 3024-7 #### [facility] ([id number]) [address] [place] [address], [address] [address] FREE T3 Collected: 02/05/2024 12:46 PM Status: COMPLETED Source: [facility] TYPE CODE TESTS RESULT OUT OF RANGE REFERENCE UNITS LAB FT3(LOINC) FREE T3 2.70 2.50-3.90 pg/mL Performed By: #### 3016-3, 3 051-0, 3024-7 #### [facility] ([id number]) [address] [place] [address], [facility] [address] [place] [address] FREE T4 Collected: 02/05/2024 12:46 PM Status: COMPLETED Source: [facility] TYPE CODE TESTS RESULT OUT OF RANGE REFERENCE UNITS LAB FT4(LOINC) FREE T4 0.75 0.61-1.60 ng/dL Performed By: #### 3016-3, 3 051-0, 3024-7 #### [facility] ([id number]) [address] [facility], [address] [place] [address] RUBELLA AB, IGG Collected: 4 3:03 PM Status: F Source: [facility] TYPE CODE TESTS RESULT OUT OF RANGE REFERENCE UNITS LAB TASHA(LOINC) Rubella Ab, IgG 62.7 IU/mL Result Comment: <10 NON REACTIVE Negative for Anti-Rubella IgG >=10 REACTIVE Positive for Anti Rubella IgG The presence of IgG antibody to Rubella virus is an indication of previous exposure either by prior infection or vaccination. Performed By: #### TASHA, BALTAZAR , VZI, GRICELDA #### [place] [id number] [employer] Supervisor: Emanuel Reaves MD MEASLES (RUBEOLA) IM Collected: 024 3:03 PM Status: F Source: [facility] TYPE CODE TESTS RESULT OUT OF RANGE REFERENCE UNITS LAB GRICELDA(LOINC) Measles (Rubeola) Im 2.45 >1.09 Result Comment: Interpretation: IMMUNE Reference Range: <0.91 Not Immune 0.91-1.09 Equivocal >1.09 Immune Performed By: #### TASHA, BALTAZAR , VZI, GRICELDA #### [address] [id number] [employer] Supervisor: Emanuel Reaves MD MUMPS,IMMUN,AB Collected: 4 3:03 PM Status: F Source: [facility] TYPE CODE TESTS RESULT OUT OF RANGE REFERENCE UNITS LAB BALTAZAR(LOINC) Mumps,Immun, Ab 3.42 >1.09 Result Comment: Interpretation: IMMUNE Reference Range: <0.91 Not Immune 0.91-1.09 Equivocal >1.09 Immune Performed By: #### TASHA, BALTAZAR , VZI, GRICELDA #### [facility] [address] [place] [address], [place] [id number] [employer] Supervisor: Emanuel Reaves MD VZ IMMUNITY Collected: 3:03 PM Status: F Source: [facility] TYPE CODE TESTS RESULT OUT OF RANGE REFERENCE UNITS LAB VZI(LOINC) VZ Immunity 1.85 >1.09 Result Comment: Interpretation: IMMUNE Reference Range: <0.91 Not Immune 0.91-1.09 Equivocal >1.09 Immune Performed By: #### TASHA, BALTAZAR , VZI, GRICELDA #### [facility] [address] [place], [place] [id number] [employer] Supervisor: Emanuel Reaves MD REMINDERS Observed: 10/16/2023 2:45 PM Status: F Source: [facility] Reminders From: Matt Nguyễn To: EU - [...] ) Other: PROVIDER RELATED REMINDER:_ ( ) Sales Support Associate ( ) Call Pharmacy ( ) Call Lab ( ) Other: Special Instructions:_ Comments:_ REMINDERS Observed: 10/16/2023 12:40 PM Status: F Source: [facility] Reminders From: CHELO Choe APRN, [facility] To: EU - Administrative; Sent: 10/16/2023 12:40:17 EDT Show up: 06/14/2024 12:40:00 EDT Subject: Reminder Message Reminder Message Please schedule for 1 year follow-up PROGRESS Observed: 10/10/2023 2:00 PM Status: COMPLETED Source: [facility] Vijaya rTan is a 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 Hx Cesar autoimmune thyroid disease, celiac disease. She underwent an implantable loop recorder for director long term care cardiac rhythm monitoring due to syncope in June 2022. Chief Complaint: OI/ syncope. ILR Only a few episodes of near syncope since seen, blackouts . 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 High fasting glucose. May [...] Telehealth Visit: 10/10/2023 The visit was conducted azpn-nv-zois with the use of audio and video technology using HIPAA approved MobibaseEX between patient and the provider for a [...] Unable to get long acting preparation. 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 2. Syncope. Chronic. Stable. No syncope. Presyncope. Improved with day shift. 3. ILR. Chronic. Stable. No arrhythmia. Device with good function. Popeye Kennedy APRN PhD [facility] Nurse Practitioner Division of Cardiovascular Medicine [facility]. TELEMEDICINE Observed: 10/10/2023 2:00 PM Status: COMPLETED Source: [facility] [id number] Vijaya Tran 1985 F Date Provider Department Center 10/10/2023 Reuben-ARAMISMagalisPOPEYE [facility] C[facility] Family History Problem [...] Alive Son Alive Son Alive Level of Service:[address] [place] OFFICE/OUTPATIENT ESTABLISHED LOW MDM 20 MIN Reason for Visit and Comments: Orthostatic Intolerance [Other] PATIENT EDUCATION Observed: 10/04/2023 8:35 AM Status: C Source: [facility] Patient Education Nephrology Dietary Guidelines to Help [...] ? 8 oz (237 mL) of milk, besonhi-alyhqbotxyak-afvoc milk, and calcium- fortifiedfruit juice. Calcium-fortified means that calcium has been [...] Spinach (cooked), rhubarb, beets, sweet potatoes, and Bulgarian chard. ? Peanuts. ? Potato chips, monegasque fries, and baked potatoes with skin on. ? Nuts and nut products. ? Chocolate. ? If you regularly take a diuretic medicine, make sure to eat at least 1 or 2 servings of fruits or vegetables that are high in potassium each day. These include: ? Avocado. ? Banana. ? [place], prune, carrot, or tomato juice. ? Baked [...] fish oil, or vitamin B6. ? Take gemq-cwt-yrkpwyz and prescription medicines only as told by your health care provider. These include supplements. What foods should I limit? Limit your intake of the following foods, or eat them as told by your dietitian. Vegetables Spinach. Rhubarb. Beets. Canned vegetables. Pickles. Olives. Baked potatoes with skin. Grains Wheat bran. Baked goods. Salted crackers. Cereals high in sugar. Meats and other proteins Nuts. Nut butters. Large portions of meat, poultry, or fish. Salted, precooked, or cured meats, such as sausages, meat loaves, and hot dogs. Dairy Cheeses. Beverages Regular soft drinks. Regular vegetable juice. Seasonings and condiments Seasoning blends with salt. Salad dressings. Soy sauce. Ketchup. Barbecue sauce. Other foods Canned soups. Canned pasta sauce. Casseroles. Pizza. Lasagna. Frozen meals. Potato chips. German fries. The items listed above may not be a complete list of foods and beverages you should limit. Contact a dietitian for more information. What foods should I avoid? Talk to your dietitian about specific foods you should avoid based on the type of kidney stones you have and your overall health. Fruits Grapefruit. The item listed above may not be a complete list of foods and beverages you should avoid. Contact a dietitian for more information. Summary ? Kidney stones are deposits of minerals and salts that form inside your kidneys. ? You can lower your risk of kidney stones by making changes to your diet. ? The most important thing you can do is drink enough fluid. Drink enough fluid to keep your urine pale yellow. ? Talk to your dietitian about how much calcium you should have each day, and eat less salt and animal protein as told by your dietitian. This information is not intended to replace advice given to you by your health care provider. Make sure you discuss any questions you have with your health care provider. Document Revised: 05/04/2022 Document Reviewed: 05/04/2022 [employer] Patient Education ? 2022 ABS.Urology Hematuria, Adult Hematuria is blood in the urine. Blood may be visible in the urine, or it may be identified with a test. This condition can be caused by infections of the bladder, urethra, kidney, or prostate. Other possible causes include: ? Kidney stones. ? Cancer of the urinary tract. ? Too much calcium in the urine. ? Conditions that are passed from parent to child (inherited conditions). ? Exercise that requires a lot of energy. [...] cancers. Follow these instructions at home: Medicines ? Take xtdh-wbf-ibzfhgh and prescription medicines only as told by your health care provider. ? If you were prescribed an antibiotic medicine, take it as told by your health care provider. Do not stop taking the antibiotic even if you start to feel better. Eating and drinking ? Drink enough fluid to keep your urine pale yellow. It is recommended that you drink 3?4 quarts (2.8?3.8 L) a day. If you have been diagnosed with an infection, drinking cranberry juice in addition to large amounts of water is recommended. ? Avoid caffeine, tea, and carbonated beverages. These tend to irritate the bladder. ? Avoid alcohol because it may irritate the prostate (in males). General instructions ? If you have been diagnosed with a kidney stone, follow your health care provider's instructions about straining your urine to catch the stone. ? Empty your bladder often. Avoid holding urine for long periods of time. ? If you are female: ? After a bowel movement, wipe from front to back and use each piece of toilet paper only once. ? Empty your bladder before and after sex. ? Pay attention to any changes in your symptoms. Tell your health care provider about any changes or any new symptoms. ? It is up to you to get the results of any tests. Ask your health care provider, or the department that is doing the test, when your results will be ready. ? Keep all follow-up visits. This is important. Contact a health care provider if: ? You develop back pain. ? You have a fever or chills. ? You have nausea or vomiting. ? Your symptoms do not improve after 3 days. ? Your symptoms get worse. Get help right away if: ? You develop severe vomiting and are unable to take medicine without vomiting. ? You develop severe pain in your back or abdomen even though you are taking medicine. ? You pass a large amount of blood in your urine. ? You pass blood clots in your urine. ? You feel very weak or like you might faint. ? You faint. Summary ? Hematuria is blood in the urine. It has many possible causes. ? It is very important that you tell your health care provider about any blood in your urine, even if it is painless or the blood stops without treatment. ? Take tssd-ljs-gophynn and prescription medicines only as told by your health care provider. ? Drink enough fluid to keep your urine pale yellow. This information is not intended to replace advice given to you by your health care provider. Make sure you discuss any questions you have with your health care provider. Document Revised: 09/22/2020 Document Reviewed: 09/22/2020 [employer] Patient Education ? 2022 ABS. AMBULATORY VISIT SUMMARY Observed: 10/01 3:26 PM Status: F Source: [facility] Ambulatory Visit Summary VIJAYA TRAN :1985 Visit Date:10/02/2023 Ambulatory Visit Instructions Your Diagnosis Angiomyolipoma Kidney stone Gross hematuria Unspecified urethral stricture, female Your Care Team Attending Physician - CHELO Choe APRN, [place]ma Benavides Primary Care Physician - CAS DOWELL MD This Is Your Medications List baclofen budesonide-formoterol (Symbicort 160/4.5 inhalation aerosol with adapter) cholecalciferol (Vitamin D3) duloxetine (Cymbalta 60 mg Cap-DR) epinephrine (EpiPen 2-Elder) fluticasone nasal (Flonase Allergy Relief 50 mcg/inh [...] By Mouth Every day Unchanged epinephrine (EpiPen 2-Elder) as directed Unchanged fluticasone nasal (Flonase Allergy [...] you for choosing us for your care. UROLOGY OFFICE/CLINIC NOTE Observed: 3:00 PM Status: F Source: [facility] Urology Office/Clinic Note Chief Complaint kidney stone, angiomyolipoma, gross hematuria HPI Staff 1 yr w/ GORDON. Dx: kidney stone, angiomyolipoma, gross hematuria, urethral stricture. *Has Flomax for stone passage GORDON done 08/21/23 at [facility]. Dysuria: denies Incomplete bladder emptying: denies [...] with voice recognition artificial intelligence software, specifically [employer] and or [employer] Substitutions may have occurred due to the [...] w/o Contrast Follow-up With When Contact Information Дмитрий VACA, JOEL-C, Selma X, FAM, URL Additional Instructions: Pending CT Patient [...] mg Cap-DR, 60 mg, Oral, Daily EpiPen 2-Elder Flonase Allergy Relief 50 mcg/inh nasal spray, [...] in lifetime) Tobacco Use:. Never Smokeless Tobacco Use:. Household tobacco concerns: No. Yes, 10/02/2023 Family History Basal cell carcinoma: Negative: Mother, Father, Sister and Brother. Cervical cancer: Mother. Diabetes mellitus type 2: Sister. Heart disease: Mother and Father. Immunizations Vaccine Date Status Comments influenza virus vaccine, inactivated - Not Given Patient Refuses influenza, unspecified formulation 11/20/2019 Recorded influenza virus vaccine, inactivated 11/06/2019 Recorded influenza virus vaccine, inactivated 10/27/2019 Recorded [1] URO- 6 mos w/ GORDON; DOLORES BURNHAM PA-C 09/05/2022 09:06 EDT [2] URO- 6 mos w/ GORDON; DOLORES BURNHAM PA-C 09/05/2022 09:06 EDT [3] URO- 6 mos w/ GORDON; DOLORES BURNHAM PA-C 09/05/2022 09:06 EDT [4] URO- 6 mos w/ GORDON; DOLORES BURNHAM PA-C 09/05/2022 09:06 EDT Result Comment: Electronical ly Signed By: CHELO Choe APRN, [facility]\.br\Date and Time Signed: 10/04/23 08:36 EDT PROGRESS Observed: 10/01/2023 9:45 AM Status: COMPLETED Source: [facility] HNO ID: [id number] Author: JAYME AMARAL MD Service: ? Author Type: Physician Type: Progress Notes Filed: 10/03/2023 07:47 Note Text: NAME: Vijaya Tran [facility] NO.: [id number] DATE OF SERVICE: October 01, 2023 (Yves) Some elements in this clinic note that are critical to medical decision making have been carefully reviewed and included from a prior clinic note dated: October 02, 2022 (Yves) Additional Clinicians involved in Vijaya Tran's care: Cas Dowell (PCP), Rajinder Collins [...] breast MRI. Continue follow up with Dr. Sid Cronin's group for POTS Now on [place] [...] EMR (2011). Updated Visit, October 01, 2023: Vijaya returns today for her annual follow up. [...] inclusions identified. Updated Visit, April 03, 2022: Vijaya returns. Continues to have mild bruising on legs and arms. Figers and ankles feel swollen. TSH 0.08 - adjusting meds. Seeing POTS clinic tomorrow. Getting an US of kidney for possible mass repeated scheduled in August. Platelet microscopy pending still. Updated Visit, February 10, 2022: Vijaya's platelet genetic testing is unremarkable. She has multiple complaints of bruising on her breasts. Endorsing Breasts have bruises without contact, nipples change color for no reason. Getting random rashes Breaking out in sweats Getting sick frequently. Has had workup for POTS in the past but no recommendations. 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 Her step-father has also . Updated Visit, November 10, 2021: Vijaya is 35 yo and is having genetic [...] (100.0kg) SpO2 99% LMP 2015 BMI 37.82 kg/(m2). Body surface area is 2.13 meters squared. Exam limited to gross visualization where appropriate. Gen.: This is an age-appropriate patient in no acute distress. Head: Appears atraumatic with no visible lesions. Eyes: Pupils equally round and reactive to light, extraocular muscles are intact. Neck: Supple. Respiratory: Appears to be respiring comfortably. Neurologic: Nonfocal to gross visualization. Alert and oriented ?3. 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 No date: REMOVAL GALLBLADDER No date: TUBAL LIGATION HX Social History Tobacco Use Smoking status: Never Passive exposure: Past Smokeless tobacco: Never Vaping Use Vaping status: Never Used Substance Use Topics Alcohol use: Not Currently Drug use: Not Currently FAMILY HISTORY Problem Relation Age of Onset Diabetes Mother uncontrolled Hypertension Mother Heart Attack Mother First PA at age 51 Cardiomyopathy Mother at age [...] which included preparing to see the patient, [id number] patient care, completing clinical documentation, performing a medically appropriate examination, ordering medications, tests, or procedures, and communicating results to the patient/family/caregiver. Jayme Amaral MD, CPE Hematology and Oncology Services Provided at: [facility] [place], [place], [place] Scribe Attestation: This note was scribed by Yari Fuchs on October 01, 2023 under the direction and supervision of Dr. Jayme Amaral. I attest that all of the information documented is correct to the best of my knowledge. Provider Attestation: I, Jayme Amaral MD, attest that all information documented by the above scribe is correct, and was supervised by me and under my direction. CC: Cas Cronin CNOVSP Observed: 10/01/2023 9:45 AM Status: COMPLETED Source: [facility] Visit (SP) Office ([place]) VIJAYA TRAN ([id number]) 1985 F Date Time Provider Department 10/01/23 9:45 AM JAYME AMARAL During your visit today, we recorded the following information about you: Temperature Pulse Respiration Blood pressure 97 degrees 71/minute 16/minute 123/84 Weight Height 100 kg 1.626 m Jayme Amaral MD 10/03/2023 7:47 AM Signed NAME: Vijaya Tran [facility] NO.: [id number] DATE OF SERVICE: October 01, 2023 (Yves) Some elements in this clinic note that are critical to medical decision making have been carefully reviewed and included from a prior clinic note dated: October 02, 2022 (Yves) Additional Clinicians involved in Vijaya Tran's care: Cas Dowell (PCP), Rajinder Collins [...] breast MRI. Continue follow up with Dr. Sid Cronin's group for POTS Now on [place] [...] EMR (2011). Updated Visit, October 01, 2023: Vijaya returns today for her annual follow up. [...] inclusions identified. Updated Visit, April 03, 2022: Vijaya returns. Continues to have mild bruising on legs and arms. Figers and ankles feel swollen. TSH 0.08 - adjusting meds. Seeing POTS clinic tomorrow. Getting an US of kidney for possible mass repeated scheduled in August. Platelet microscopy pending still. Updated Visit, February 10, 2022: Vijaya's platelet genetic testing is unremarkable. She has multiple complaints of bruising on her breasts. Endorsing Breasts have bruises without contact, nipples change color for no reason. Getting random rashes Breaking out in sweats Getting sick frequently. Has had workup for POTS in the past but no recommendations. 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 Her step-father has also . Updated Visit, November 10, 2021: Vijaya is 35 yo and is having genetic [...] noted on them. Will evaluate this further. - REVIEW OF SYSTEMS Per HPI and otherwise negative by full review of organ systems. - ECOG PERFORMANCE STATUS: 0 PHYSICAL EXAMINATION: Vitals: BP 123/84 Pulse 71 Temp (Src) 97 (Temporal) Resp 16 Ht 5' 4.016 (1.63m) Wt 220 lb 7.4 oz (100.0kg) SpO2 99% LMP 2015 BMI 37.82 kg/(m2). Body surface area is 2.13 meters squared. Exam limited to gross visualization where appropriate. Gen.: This is an age-appropriate patient in no acute distress. Head: Appears atraumatic with no visible lesions. Eyes: Pupils equally round and reactive to light, extraocular muscles are intact. Neck: Supple. Respiratory: Appears to be respiring comfortably. Neurologic: Nonfocal to gross visualization. Alert and oriented ?3. Psychiatric: No evidence of inappropriate anxiety or [...] the axillary tail of her left breast. - ALLERGIES: ALLERGIES Allergen Reactions Cefaclor Shortness of [...] Take 10 mg by mouth once daily. 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 No date: REMOVAL GALLBLADDER No date: TUBAL LIGATION HX Social History Tobacco Use Smoking status: Never Passive exposure: Past Smokeless tobacco: Never Vaping Use Vaping status: Never Used Substance Use Topics Alcohol use: Not Currently Drug use: Not Currently FAMILY HISTORY Problem Relation Age of Onset Diabetes Mother uncontrolled Hypertension Mother Heart Attack Mother First PA at age 51 Cardiomyopathy Mother at age [...] which included preparing to see the patient, arss-ba-iier patient care, completing clinical documentation, performing a medically appropriate examination, ordering medications, tests, or procedures, and communicating results to the patient/family/caregiver. Jayme Amaral MD, CPE Hematology and Oncology Services Provided at: [place], [place] Scribe Attestation: This note was scribed by Yari Fuchs on October 01, 2023 under the direction and supervision of Dr. Jayme Amaral. I attest that all of the information documented is correct to the best of my knowledge. Provider Attestation: I, Jayme Amaral MD, attest that all information documented by the above scribe is correct, and was supervised by me and under my direction. CC: Jayme Segal MD 10/01/2023 10:04 AM Signed Continue Amicar prior to dental extraction FFP for major surgery. 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 Follow-up and Disposition History for Encounter Date Provider Department Center 10/01/2023 [id number] AMARAL Prescriptions as of 10/03/2023 - pyridostigmine (MESTINON) 60 mg tablet Take 180 mg by mouth two times a day. - azelastine 0.1% nasal spray SPRAY 1 SPRAY INTO EACH NOSTRIL IN THE MORNING AND BEFORE BEDTIME DIRECTED - aminocaproic acid (AMICAR) 500 mg tablet Take 2 tablets by mouth every 6 hours as needed (once prior to dentist and then after for 3-4 doses.) for up to 20 days. - CPAP/BIPAP/OTHER Type .CPAPSettings into a note to see current settings/supplies/DME information. - DULoxetine (CYMBALTA) 30 mg capsule TAKE [...] tab Take 250 mg by mouth. - fremanezumab-vfrm subcutaneus auto-injector 225 mg/1.5 mL (AJOVY) Inject 1.5 mL subcutaneously once every month. Do not shake. - UBRELVY 100 mg tablet TAKE 1 TABLET BY MOUTH AT ONSET OF MIGRAINE. MAY REPEAT IN 2 HOURS NEEDED. MAX 2 TABLET IN 24 HOURS - cetirizine (ZYRTEC) 10 mg tablet Take [...] Take 10 mg by mouth once daily. 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 RTC in 12 months - cbc, cmp Encounter Status:Closed by JAYME AMARAL on 10/03/23 COMP METAB 2000 PNL SERPL Collected: 9:27 AM Status: F Source: [facility] Order Comment: Specimen Type : BLOOD SPECIMEN Ordering Facility: [facility] Address: [address] [id number] TYPE CODE TESTS RESULT OUT OF RANGE REFERENCE UNITS LAB 2885-2(LOINC) Prot SerPl-mCnc 7.1 6.3-8.0 g/dL LAB 1751-7(LOINC) Albumin SerPl-mCnc 4.4 3.9-4.9 g/dL LAB 86331-7(LOINC) Calcium SerPl-mCnc 9.3 8.5-10.2 mg/dL LAB 1975-2(LOINC) Bilirub SerPl-mCnc 0.5 0.2-1.3 mg/dL LAB 6768-6(LOINC) ALP SerPl-cCnc 73 34-123 U/L LAB 1920-8(LOINC) AST SerPl-cCnc 21 13-35 U/L LAB 1742-6(LOINC) ALT SerPl-cCnc 25 7-38 U/L LAB 2345-7(LOINC) Glucose SerPl-mCnc 136 High 74-99 mg/dL Result Comment: The [place] Diabetes Association (ADA) provides guidance for cutoff [...] Standards of Medical Care in Diabetes 2016, [place] Diabetes Association. Diabetes Care. 2016.39(Suppl 1). LAB 3094-0(LOINC) BUN SerPl-mCnc 12 7-21 mg/ dL LAB 2160-0(LOINC) Creat SerPl-mCnc 1.01 High 0.58-0.96 mg/dL LAB 2951-2(LOINC) Sodium SerPl-sCnc 138 136-144 mmol/L LAB 2823-3(LOINC) Potassium SerPl-sCnc 3.9 3.7-5.1 mmol/L LAB 2075-0(LOINC) Chloride SerPl-sCnc 104 98-107 mmol/L LAB 2028-9(LOINC) CO2 SerPl-sCnc 25 22-30 mmo l/L LAB 23213-1(LOINC) Anion Gap SerPl-sCnc 9 8-15 mmol/L LAB 74282-2(LOINC) Creatinine + eGFR Pnl SerPlBld 73 >=60 mL/min/1 .73m??? Result Comment: Estimated Gl omerular Filtration Rate (eGFR) is calculated using the 2020 CKD-EPI creatinine equation. This equation utilizes serum creatinine, sex, and age as parameters. The creatinine assay has traceable calibration to isotope dilution-mass spectrometry. Refer to KDIGO guidelines for clinical interpretation. In patients with unstable renal function, e.g. those with acute kidney injury, the eGFR may not accurately reflect actual GFR. Performed By: #### [id number] # ### [facility] CLIA [id number] [address] [place] [address] [place] [address] [place] CBC W AUTO DIFF BLD Collected: 10/01/2023 9:[address] atus: F Source: [facility] Order Comment: Specimen Type : BLOOD SPECIMEN Ordering Facility: [facility] Address: [address] [place] [address] TYPE CODE TESTS RESULT OUT OF RANGE REFERENCE UNITS LAB 6690-2(LOINC) WBC # Bld Auto 5.75 3.70-11.00 k/uL LAB 789-8(LOINC) RBC # Bld Auto 4.86 3.90-5.20 m/ uL LAB 718-7(LOINC) Hgb Bld-mCnc 14.7 11.5-15.5 g/dL LAB 4544-3(LOINC) Hct VFr Bld Auto 41.7 36.0-46.0 % LAB 787-2(LOINC) MCV RBC Auto 85.8 80.0-100.0 fL LAB 785-6(LOINC) MCH RBC Qn Auto 30.2 26.0-34.0 p g LAB 786-4(LOINC) MCHC RBC Auto-mCnc 35.3 30.5-36.0 g/dL LAB 50006-0(LOINC) RDW RBC-Rto 11.6 11.5-15.0 % LAB 777-3(LOINC) Platelet # Bld Auto 241 150-400 k/uL LAB 34372-4(LOINC) PMV Bld Auto 10.0 9.0-12.7 fL LAB 770-8(LOINC) Neutrophils/leuk NFr Bld Auto 70.6 % LAB 751-8(LOINC) Neutrophils # Bld Auto 4.06 1.45-7.50 k/uL LAB 736-9(LOINC) Lymphocytes/leuk NFr Bld Auto 21.4 % LAB 731-0(LOINC) Lymphocytes # Bld Auto 1.23 1.00-4.00 k/uL LAB 5905-5(LOINC) Monocytes/leuk NFr Bld Auto 4.2 % LAB 742-7(LOINC) Monocytes # Bld Auto 0.24 <0.87 k/uL LAB 713-8(LOINC) Eosinophil/leuk NFr Bld Auto 2.6 % LAB 711-2(LOINC) Eosinophil # Bld Auto 0.15 <0.46 k/uL LAB 706-2(LOINC) Basophils/leuk NFr Bld Auto 0.7 % LAB 704-7(LOINC) Basophils # Bld Auto 0.04 <0.11 k/uL LAB 41642-9(LOINC) Imm Granulocytes/cristina k NFr Bld Auto 0.5 % LAB 70664-4(LOINC) Imm Granulocytes # Bld Auto 0.03 <0.10 k/uL LAB 87639-1(LOINC) nRBC/100 WBC Bld-Rto 0.0 /100 WBC LAB 771-6(LOINC) nRBC # Bld Auto <0.01 <0.01 k/u L LAB 40807-6(LOINC) Differential method Bld Auto Performed By: #### [id number] # ### [facility] CLIA [id number] [address] [place] [address] ALLERGIES DATE TYPE / CODE NAME / CODE REACTION SEVERITY SOURCE 07/07/2022 DRUG INGREDI/41 8731248(SN OMED CT) DIMETHICONE [facility] 07/07/2022 DRUG/21204 1003(SNOME D CT) ERYTHROMYCIN [facility] 06/21/2022 DRUG INGREDI/41 5172451(SN OMED CT) BUPROPION [facility] 06/21/2022 DRUG INGREDI~NO N-CBORD/41 0671830(SN OMED CT) BUPROPION Other ( See Comments) [facility] 05/24/2022 DRUG INGREDI/41 6342590(SN OMED CT) ZOLPIDEM [facility] 05/24/2022 DRUG INGREDI/41 6448092(SN OMED CT) IODINE [facility] 05/24/2022 DRUG INGREDI/41 3659006(SN OMED CT) POVIDONE-IODINE Rash Low [facility] 05/24/2022 DRUG INGREDI~NO N-CBORD/41 3008367(SN OMED CT) ZOLPIDEM Other ( See Comments) [facility] 05/24/2022 DRUG INGREDI~NO N-CBORD/41 0654530(SN OMED CT) POVIDONE-IODINE Rash [facility] 02/27/2022 DRUG INGREDI/41 2774005(SN OMED CT) MENTHOL [facility] 02/27/2022 DRUG INGREDI~NO N-CBORD/41 9013365(SN OMED CT) MENTHOL [facility] 10/05/2021 DRUG INGREDI/41 2521585(SN OMED CT) VALACYCLOVIR Anaphylaxis~Sob [facility] 10/05/2021 DRUG INGREDI~NO N-CBORD/41 2758475(SN OMED CT) VALACYCLOVIR Anaphylaxis [facility] 08/18/2021 DRUG/11426 1003(SNOME D CT) GLOVES, LATEX WITH ALOE VERA [facility] 08/18/2021 DRUG~NON-C BORD/03369 1003(SNOME D CT) GLOVES, LATEX WITH ALOE VERA [facility] 08/18/2021 DRUG INGREDI~NO N-CBORD/41 6590674(SN OMED CT) SULFAMETHOXAZOLE [facility] 08/18/2021 DRUG INGREDI/41 4370532(SN OMED CT) PENICILLIN G BENZATHINE UNKNOWN [facility] 07/25/2021 Drug Class/4195 93541(SNOM ED CT) FISH CONTAINING PRODUCTS Hives [facility] 07/25/2021 DRUG INGREDI/41 2735038(SN OMED CT) SHELLFISH DERIVED Hives [facility] 07/25/2021 Drug Class~Food /118816071 (SNOMED CT) FISH CONTAINING PRODUCTS [facility] 07/25/2021 DRUG INGREDI~Fo od/5768312 00(SNOMED CT) SHELLFISH DERIVED [facility] 07/25/2021 Drug Class/4195 43432(SNOM ED CT) FISH CONTAINING PRODUCTS [facility] 07/25/2021 DRUG INGREDI/41 0212495(SN OMED CT) SHELLFISH DERIVED [facility] 06/08/2021 DRUG INGREDI/41 9360178(SN OMED CT) ROFECOXIB UNKNOWN [facility] 06/08/2021 DRUG/25952 1003(SNOME D CT) DROSPIRENONE-ETHINYL ESTRADIOL OTHER: SEE C [facility] 03/02/2021 DRUG INGREDI~NO N-CBORD/41 9935999(SN OMED CT) METRONIDAZOLE [facility] 12/15/2020 DRUG INGREDI~NO N-CBORD/41 1877692(SN OMED CT) EUCALYPTUS Anaphylaxis [facility] 12/15/2020 Drug Class~NON- CBORD/4195 33350(SNOM ED CT) SULFA (SULFONAMIDE ANTIBIOTICS) Shortness Of Breath [facility] 12/15/2020 DRUG INGREDI~NO N-CBORD/41 7229318(SN OMED CT) GATIFLOXACIN Diarrhea [facility] 12/15/2020 DRUG INGREDI~NO N-CBORD/41 5604395(SN OMED CT) LEVOFLOXACIN Rash [facility] 11/11/2020 DRUG INGREDI/41 0093580(SN OMED CT) LEVOFLOXACIN Rash [facility] 11/11/2020 DRUG INGREDI/41 0349579(SN OMED CT) LEVOFLOXACIN RASH [facility] 10/23/2020 DRUG INGREDI/41 7965965(SN OMED CT) EUCALYPTUS Anaphylaxis [facility] 10/23/2020 DRUG INGREDI/41 7986191(SN OMED CT) EUCALYPTUS ANAPHYLAXIS [facility] 09/06/2020 DRUG INGREDI/41 2089746(SN OMED CT) NAPROXEN [facility] 09/06/2020 DRUG INGREDI/41 4757353(SN OMED CT) NAPROXEN Angioedema [facility] 09/06/2020 DRUG INGREDI/41 8987354(SN OMED CT) LAVENDER (LAVANDULA ANGUSTIFOLIA) ANAPHYLAXIS [facility] 06/13/2020 DRUG INGREDI/41 9939709(SN OMED CT) LAVENDER (LAVANDULA ANGUSTIFOLIA) Anaphylaxis [facility] 06/13/2020 DRUG INGREDI~Fo od/2427574 00(SNOMED CT) LAVENDER (LAVANDULA ANGUSTIFOLIA) Anaphylaxis [facility] 05/18/2015 Drug Class/4195 50085(SNOM ED CT) SULFA (SULFONAMIDE ANTIBIOTICS) SWELLING [facility] 03/21/2015 Drug Class/4195 17490(SNOM ED CT) SULFA (SULFONAMIDE ANTIBIOTICS) Sob~Swelling [facility] 2014 DRUG INGREDI/41 6976065(SN OMED CT) GATIFLOXACIN Diarrhea [facility] 2014 DRUG INGREDI/41 7990997(SN OMED CT) GATIFLOXACIN DIARRHEA [facility] 02/23/2014 DRUG INGREDI/41 3294905(SN OMED CT) CLINDAMYCIN Rash~Sob~Swellin g [facility] 02/23/2014 Drug Class/4195 66289(SNOM ED CT) IODINATED CONTRAST MEDIA Anaphylaxis [facility] 02/23/2014 DRUG INGREDI/41 6443837(SN OMED CT) CLINDAMYCIN Rash [facility] 02/23/2014 DRUG INGREDI~NO N-CBORD/41 0657520(SN OMED CT) CLINDAMYCIN Rash~Sob~Swellin g [facility] 02/23/2014 Drug Class~NON- CBORD/4195 75135(SNOM ED CT) IODINATED CONTRAST MEDIA Anaphylaxis [facility] 02/23/2014 Drug Class/4195 22117(SNOM ED CT) IODINATED CONTRAST MEDIA ANAPHYLAXIS [facility] 02/23/2014 DRUG INGREDI/41 3026684(SN OMED CT) ASPIRIN Angioedema [facility] 02/23/2014 DRUG INGREDI/41 5207427(SN OMED CT) CEFUROXIME AXETIL SHORTNESS OF [facility] 02/23/2014 DRUG INGREDI/41 8952334(SN OMED CT) CLINDAMYCIN RASH [facility] 02/23/2014 DRUG/43849 1003(SNOME D CT) ERYTHROMYCIN SWELLING [facility] 02/23/2014 Drug Class/4195 21122(SNOM ED CT) PENICILLINS RASH [facility] 02/23/2014 DRUG INGREDI/41 7172264(SN OMED CT) LATEX RASH [facility] 01/23/2014 DRUG/44946 1003(SNOME D CT) SULFAMETHOXAZOLE-TRIM ETHOPRIM [facility] 01/23/2014 DRUG~NON-C BORD/52816 1003(SNOME D CT) SULFAMETHOXAZOLE-TRIM ETHOPRIM Other ( See Comments) [facility] 09/04/2011 DRUG INGREDI/41 0001146(SN OMED CT) CEFACLOR Anaphylaxis~Sob~ Swelling [facility] 09/04/2011 DRUG INGREDI/41 8100235(SN OMED CT) CEFUROXIME AXETIL Rash~Sob [facility] 09/04/2011 DRUG/29083 1003(SNOME D CT) IODIDES Anaphylaxis [facility] 09/04/2011 Drug Class/4195 38404(SNOM ED CT) MACROLIDE ANTIBIOTICS Sob~Swelling [facility] 09/04/2011 DRUG INGREDI/41 5795643(SN OMED CT) IBUPROFEN Rash Medium [facility] 09/04/2011 DRUG/78723 1003(SNOME D CT) DROSPIRENONE-ETHINYL ESTRADIOL [facility] 09/04/2011 DRUG/48160 1003(SNOME D CT) NORETHINDRONE AC-ETH ESTRADIOL [facility] 09/04/2011 DRUG INGREDI/41 8269451(SN OMED CT) ASPIRIN Rash [facility] 09/04/2011 Drug Class/4195 57769(SNOM ED CT) LATEX, NATURAL RUBBER Itching~Rash~Swe lling [facility] 09/04/2011 Drug Class/4195 61908(SNOM ED CT) PENICILLINS Itching~Rash [facility] 09/04/2011 DRUG INGREDI/41 6121497(SN OMED CT) ROFECOXIB Rash [facility] 09/04/2011 DRUG INGREDI/41 9863922(SN OMED CT) CEFACLOR Anaphylaxis High [facility] 09/04/2011 DRUG/69450 1003(SNOME D CT) ERYTHROMYCIN Shortness Of Breath [facility] 09/04/2011 Drug Class/4195 09025(SNOM ED CT) LATEX, NATURAL RUBBER Swelling [facility] 09/04/2011 Drug Class/4195 35252(SNOM ED CT) PENICILLINS Itching [facility] 09/04/2011 DRUG INGREDI~NO N-CBORD/41 6401032(SN OMED CT) CEFACLOR Anaphylaxis~Swel ling~Sob High [facility] 09/04/2011 DRUG~NON-C BORD/86543 1003(SNOME D CT) ERYTHROMYCIN Sob~Swelling High [facility] 09/04/2011 DRUG~NON-C BORD/15076 1003(SNOME D CT) IODIDES Anaphylaxis High [facility] 09/04/2011 DRUG INGREDI~NO N-CBORD/41 9365316(SN OMED CT) IBUPROFEN Rash Med [facility] 09/04/2011 DRUG~NON-C BORD/61498 1003(SNOME D CT) DROSPIRENONE-ETHINYL ESTRADIOL [facility] 09/04/2011 DRUG~NON-C BORD/33236 1003(SNOME D CT) NORETHINDRONE AC-ETH ESTRADIOL [facility] 09/04/2011 DRUG INGREDI~NO N-CBORD/41 5385480(SN OMED CT) ASPIRIN Rash [facility] 09/04/2011 Drug Class~Envi urvashi~NON-CB ORD/577491 003(SNOMED CT) LATEX, NATURAL RUBBER Swelling~Itching ~Rash Low [facility] 09/04/2011 Drug Class~NON- CBORD/4195 17537(SNOM ED CT) PENICILLINS Itching~Rash Low [facility] 09/04/2011 DRUG INGREDI~NO N-CBORD/41 3569702(SN OMED CT) ROFECOXIB Rash Low [facility] 09/04/2011 DRUG INGREDI/41 6596788(SN OMED CT) CEFACLOR SHORTNESS OF High [facility] OT/697305 006(SNOMED CT) CT dye and contrast anaphylaxix Severe (Severity Modifier) (Qualifier Value) [facility] OTH/277709 006(SNOMED CT) latex SWELLING Severe (Severity Modifier) (Qualifier Value) [facility] DRUG/27779 1003(SNOME D CT) clindamycin RASH Moderate (Severity Modifier) (Qualifier Value) [facility] DRUG/75871 1003(SNOME D CT) erythromycin breathing Severe (Severity Modifier) (Qualifier Value) [facility] DRUG/68772 1003(SNOME D CT) penicillin rash~breathing Severe (Severity Modifier) (Qualifier Value) [facility] DRUG/03380 1003(SNOME D CT) sulfa drugs breathing Severe (Severity Modifier) (Qualifier Value) [facility] DRUG/70104 1003(SNOME D CT) Ceclor breathing Severe (Severity Modifier) (Qualifier Value) [facility] DRUG/26548 1003(SNOME D CT) Ceftin RASH Severe (Severity Modifier) (Qualifier Value) [facility] [id number] 06(SNOMED CT) clindamycin 135768176 [facility] /8859449 06(SNOMED CT) penicillin 022981497 [facility] [id number] 06(SNOMED CT) aspirin 705374220 [facility] [id number] 06(SNOMED CT) Latex 543265300 [facility] /0769640 06(SNOMED CT) sulfa drugs 9656144368 [facility] /2216868 06(SNOMED CT) macrolide antibiotics 5466861392 [facility] [id number] 06(SNOMED CT) iodine 190545247 [facility] /2471845 06(SNOMED CT) Ceclor 336246187 [facility] [id number] 06(SNOMED CT) Motrin 105009395 [facility] [id number] 06(SNOMED CT) Valtrex 68205974 [facility] [id number] 06(SNOMED CT) Betadine [id number] [facility] ENCOUNTERS ADMIT/DISCHARGE ACCOUNT NUMBER ADMITTING ENCOUNTER CLASS LOCATION SOURCE 08/11/2024/08/12/19 [id number] Ambulatory Building:[facility] 07/09/2024 [id number] Ambulatory Building:[facility] 07/08/2024/07/09/19 25 [id number] Ambulatory Building:[facility] 07/01/2024/07/02/19 [id number] Ambulatory Building:[facility] 05/13/2024 [id number] Ambulatory Building:[facility] 05/08/2024/05/09/19 [id number] [facility] 04/15/2024 [id number] Ambulatory Building:[facility] 02/27/2024/02/26/19 25 [id number] Ambulatory Building:[facility] 02/18/2024 [id number] Ambulatory Building:[facility] 02/11/2024/02/10/19 25 [id number] Ambulatory Building:[facility] 02/05/2024/02/05/20 24 [id number] Ambulatory Building:[facility]WOO [facility] 01/23/2024 [id number] Ambulatory Building:[facility] 01/18/2024 [id number] Ambulatory Building:[facility] 01/07/2024 [id number] Ambulatory Building:[facility] 01/02/2024/01/02/20 24 [id number] Ambulatory Buildin [facility] 01/01/2024/01/01/20 24 [id number] [facility] 12/27/2023/12/27/19 24 [id number] Ambulatory Building:[facility] 12/19/2023 [id number] Ambulatory Building:[facility] 12/19/2023/12/19/19 24 [id number] Ambulatory Building:[facility] 11/30/2023/11/30/19 24 [id number] [facility] 11/22/2023/11/22/19 24 [id number] Ambulatory [facility] 11/20/2023/11/20/19 24 [id number] Ambulatory Building:[facility] BCP OB [facility] 11/19/2023 [id number] Ambulatory Building:[facility] 11/07/2023/11/07/19 24 [id number] Ambulatory Building:[facility] SWS ALL [facility] 11/06/2023 [id number] Ambulatory Building:[facility] 10/15/2023 [id number] Ambulatory Building:[facility] 10/10/2023/10/10/19 24 [id number] Ambulatory Building:[facility] 10/10/2023/10/10/19 24 [id number] Ambulatory Building:CWMFA MMED [facility] 10/05/2023 [id number] Ambulatory Building:[facility] 10/02/2023/10/02/19 24 [id number] [facility]am 2 [facility] 10/01/2023/10/01/19 24 [id number] [facility] 10/01/2023/10/01/19 [id number] [facility] 09/26/2023/09/26/19 24 [id number] Ambulatory Building:CWMFA MMED [facility] 09/19/2023/09/19/19 24 [id number] Ambulatory Building:[facility] BCP OB [facility] 09/05/2023 [id number] Ambulatory Building:[facility] 08/22/2023/08/22/19 24 [id number] Ambulatory Building:[facility] BCP OB [facility] EPIC PAYERS ENCOUNTER GUARANTOR PAYER SUBSCRIBER SOURCE 08/11/2024 VIJAYA GARCIA: [address] [place] [address]Sjl: (HP) Primary Insurance:BCBSPolicy Number: [id number] Date:2022-02-05 VIJAAY GARCIA: [id number], [place] [address] [facility] EP[facility] 08/11/2024 Secondary Insurance:BCBSPolicy Number: [id number] Date:2022-02-05 SEAN GARCIA: [id number] [place] [address] [facility] EP[facility] 07/09/2024 Primary Insurance:KAYLA CERRATO [place]: [id number] Date:2022-02-05 VIJAYA GARCIA: [id number] [address] [facility] 07/08/2024 VIJAYA GARCIA: [id number] [address] [place] [address]Kxt: (OW) Primary Insurance:BCBSPolicy Number: [id number] Date:2022-02-05 VIJAYA GARCIA: [id number] [place] [address] [facility] EPIC 07/08/2024 Secondary Insurance:BCPolicy Number: [id number] Date:2022-02-05 SEAN Sosa SHARIB: [id number] [address] [facility] EPIC 07/01/2024 VIJAYA TRANB: [address], [place] [address]Rbn: (HP) Primary Insurance:BLUE ACCESS (PPO)Policy Number: [id number] Date:2022-02-05 VIJAYA Tan SHARIB: [id number], [place] [address]Zxr: (HP) (WP) [facility] 05/13/2024 Primary Insurance:ANTHEM [facility] Number: [id number] Date:2022-02-05 VIJAYA Tan SHARIB: [id number] [address] [facility] 05/08/2024 Vijaya Mckeon ShariB: [address] [place] [address]Gxr: (HP) Primary Insurance:AnthemPolic y Number: Effective Date:4021-78-20Erzb Name:COMP [address] [address]LQ: Vijaya Mckeon ShariB: [id number], [place] [address]~awmrswi [email or web address] Hospitaldenise l: (WP) [facility] 05/08/2024 Secondary Insurance:AnthemPolic y Number: Effective Date:0130-07-01Iruy Name:COMP [address], [place] [address]UD: Sean CarrilloB: [id number], [place] [address]Zga: (HP) [facility] 02/27/2024 VIJAYA Tan SHARIB: [address] [address]Tyx: (HP) Primary Insurance:BCBSPolicy Number: [id number] Date:2022-02-05 VIJAYA Tan SHARIB: [id number] [address] [facility] EPIC 02/27/2024 Secondary Insurance:BCBSPolicy Number: [id number] Date:2022-02-05 SEAN CARRILLOB: [id number] [place] [address] [facility] EPIC 02/18/2024 Primary Insurance:KAYLA [facility] OHIOPolicy Number: [id number] Date:2022-02-05 VIJAYA Tan SHARIB: [id number] [address] [facility] 02/11/2024 VIJAYA Tan SHARIB: [address] [address]Kfb: (HP) Primary Insurance:BCBSPolicy Number: [id number] Date:2022-02-05 VIJAYA Tan SHARIB: [id number] [address] [facility] EPIC 02/11/2024 Secondary Insurance:BCBSPolicy Number: [id number] Date:2022-02-05 SEAN GARCIA: [id number] [address] [facility] EPIC 02/05/2024 VIJAYA Tan SHARIB: [address], [place] [address]Xrm: (HP) Primary Insurance:BLUE ACCESS (PPO)Policy Number: [id number] Date:2022-02-05 VIJAYA Tan SHARIB: [id number], [place] [address]Qna: (HP) (WP) [facility] 02/05/2024 Secondary Insurance:BLUE ACCESS (PPO)Policy Number: [id number] Date:2022-02-05 SEAN CARRILLOB: [id number] [place] [address] [facility] 01/18/2024 Primary Insurance:KAYLA CERRATO OHIOPolicy Number: [id number] Date:2022-02-05 VIJAYA Tan SHARIB: [id number] [place] [address] [facility] 01/18/2024 Secondary Insurance:KAYLA CERRATO OHIOPolicy Number: [id number] Date:2022-02-05 SEAN SHARIB: [id number] [address] [facility] 01/07/2024 Primary Insurance:KAYLA CERRATO OHIOPolicy Number: [id number] Date:2022-02-05 VIJAYA Tan SHARIB: [id number], [place] [address] [facility] 01/07/2024 Secondary Insurance:KAYLA CERRATO OHIOPolicy Number: [id number] Date:2022-02-05 SEAN SHARIB: [id number] [address] [facility] 01/02/2024 VIJAYA Tan SHARIB: [id number] [address], [place] [address]Rel: (HP) Primary Insurance:BLUE ACCESS (PPO)Policy Number: [id number] Date:2022-02-05 SEAN DE OLIVEIRA SHARIB: [id number] [facility] [address] [address] [facility] 01/02/2024 Secondary Insurance:BLUE ACCESS (PPO)Policy Number: [id number] Date:2022-02-05 VIJAYA TRANB: [id number] [facility] [address] [address]Uxy: (HP) (WP) [facility] 01/01/2024 Vijaya Mckeon ShariB: [facility] [address] [address]Wsm: (HP) Primary Insurance:AnthemPolic y Number: Effective Date:5689-11-21Rcgu Name:COMP [address], [place] [address]UM: Vijaya Mckeon ShariB: [id number] [facility] [address] [address]~awmrswi [email or web address] l: (WP) [facility] 01/01/2024 Secondary Insurance:AnthemPolic y Number: Effective Date:0038-47-55Ohoc Name:COMP [address], [place] [address]AU: Sean ShariB: [id number] [facility] [place] [address]Dxs: (HP) (WP) [facility] 12/27/2023 VIJAYA TRANB: [facility] [place] [address]Ynn: (HP) Primary Insurance:HB SPECIALTY BILLINGPolicy Number: [id number] Date:2023-12-27 VIJAYA Tan SHARIB: [id number] [facility] [address] [address]Kqf: (HP) [facility] 12/19/2023 Primary Insurance:KAYLA CERRATO OHIOPolicy Number: [id number] Date:2022-02-05 VIJAYA Tan SHARIB: [id number], [place] [address] [facility] 12/19/2023 Secondary Insurance:KAYLA CERRATO OHIOPolicy Number: [id number] Date:2022-02-05 SEAN CARRILLOB: [id number] [address] [facility] 12/19/2023 VIJAYA Tan SHARIB: [address], [place] [address]Jwk: (HP) Primary Insurance:BCBSPolicy Number: [id number] Date:2022-02-05 VIJAYA Tan SHARIB: [id number], [place] [address]Kyw: (HP) [facility] 12/19/2023 Secondary Insurance:BCBSPolicy Number: [id number] Date:2022-02-05 SEAN SHARIB: [id number], [place] [address]Csi: (HP) [facility] 11/30/2023 Vijaya Mckeon ShariB: [facility] [address] [place] [address]Iir: (HP) Primary Insurance:AnthemPolic y Number: Effective Date:1196-28-12Wgqy Name:[id number], [place] [address]DN: Vijaya Mckeon ShariB: [id number] [facility] [address] [place] [address]~awmrswi [email or web address] l: () [facility] 11/30/2023 Secondary Insurance:AnthemPolic y Number: Effective Date:9820-07-46Iukw Name:KD [id number], [place] [address]MQ: Sean CarrilloB: [id number] [facility] [address], [place] [address]Gpm: (HP) (WP) [facility] 11/22/2023 VIJAYA CARRILLOB: [address], [place] [address]Dsm: (HP) Primary Insurance:BLUE ACCESS (PPO)Policy Number: [id number] Date:2022-02-05 SEAN CARRILLOB: [id number] [facility] [address] [place] [address] [facility] 11/22/2023 Secondary Insurance:BLUE ACCESS (PPO)Policy Number: [id number] Date:2022-02-05 VIJAYA CARRILLOB: [id number], [place] [address]Ann: (HP) (WP) [facility] 11/20/2023 VIJAYA CARRILLOB: [address] [address]Deb: (HP) Primary Insurance:BCBSPolicy Number: [id number] Date:2022-02-05 VIJAYA CARRILLOB: [id number], [place] [address] [facility] EP[facility] 11/20/2023 Secondary Insurance:BCBSPolicy Number: [id number] Date:2022-02-05 SEAN CARRILLOB: [id number], [place] [address] [facility] 11/07/2023 VIJAYA GARCIA: [id number] [address] [place] [address]Qrf: (HP) Primary Insurance:BCBSPolicy Number: [id number] Date:2022-02-05 VIJAYA Tan SHARIB: [id number], [place] [address] [facility] 11/07/2023 Secondary Insurance:BCBSPolicy Number: [id number] Date:2022-02-05 SEAN CARRILLOB: [id number] [address] [facility] 10/10/2023 Primary Insurance:ANTHEM BCBS OHIOPolicy Number: [id number] Date:2022-02-05 VIJAYA Tan SHARIB: [id number] [address] [facility] 10/10/2023 Secondary Insurance:KAYLA WEEMSBS OHIOPolicy Number: [id number] Date:2022-02-05 SEAN CARRILLOB: [id number] [address] [facility] 10/10/2023 VIJAYA Tan SHARIB: [address] [address]Lyg: (HP) Primary Insurance:BCBSPolicy Number: [id number] Date:2022-02-05 VIJAYA Tan SHARIB: [id number] [address] [facility] 10/10/2023 Secondary Insurance:BCBSPolicy Number: [id number] Date:2022-02-05 SEAN CARRILLOB: [id number] [address] [facility] 10/02/2023 VIJAYA CARRILLOB: [address]Tel: ~~(4 1 (HP) Primary Insurance:AnthemPolic y Number: [id number] Date:6877-16-88XA [address] [address]CM: VIJAYA [facility] 10/02/2023 Secondary Insurance:AnthemPolic y Number: [id number] Date:6899-84-40[address] [place] [address]RP: SEAN [facility] 10/01/2023 Primary Insurance:BLUE ACCESS PPOPolicy Number: [id number] Date:2340-73-68Obod Name:Jaky TRANMARK: [id number], [place] [address] [facility] 10/01/2023 Secondary Insurance:BLUE ACCESS PPOPolicy Number: [id number] Date:3817-47-98Ohis Name:Jaky TRANMARK: [id number], [place] [address] [facility] 10/01/2023 Primary Insurance:BLUE ACCESS PPOPolicy Number: [id number] Date:0457-41-94Qvhy Name:Jaky CARRILLOAnay: [id number] [place] [address] [facility] 10/01/2023 Secondary Insurance:BLUE ACCESS PPOPolicy Number: [id number] Date:5648-54-91Fsla Name:Jaky TRANMARK: [id number] [place] [address] [facility] 09/26/2023 VIJAYA Dominick JOSE: [id number] [place] [address]Erj: (HP) Primary Insurance:BCBSPolicy Number: [id number] Date:2022-02-05 VIJAYA Dominick JOSE: [id number] [address] [facility] 09/26/2023 Secondary Insurance:BCBSPolicy Number: [id number] Date:2022-02-05 SEAN GARCIA: [id number] [address] [facility] EPIC 09/19/2023 VIJAYA Tan SHARIB: [address] [address]Fyl: (HP) Primary Insurance:BCBSPolicy Number: [id number] Date:2022-02-05 VIJAYA Tan SHARIB: [id number] [address] [facility] 09/19/2023 Secondary Insurance:BCBSPolicy Number: [id number] Date:2022-02-05 SEAN GARCIA: [id number] [address] [facility] 08/22/2023 VIJAYA Tan SHARIB: [address] [address]Qqv: (HP) Primary Insurance:BCBSPolicy Number: [id number] Date:2022-02-05 VIJAYA Tan SHARIB: [id number] [address] [facility] 08/22/2023 Secondary Insurance:BCBSPolicy Number: [id number] Date:2022-02-05 SEAN GARCIA: [id number] [address] [facility] EPIC
[2024-08-11 11:09] LABS: Hematocrit 43.2 % (36.0-48.0); Hemoglobin 14.7 g/dL (12.0-16.0); Immature Granulocytes Abs Auto 0.02 10^3/uL (0.00-0.03); Immature Granulocytes Pct Auto 0.3 % (0.0-0.5); Lymphocytes Absolute Auto 1.6 10^3/uL (1.2-3.8); Mean Corpuscular HGB Conc 34.0 g/dL (29.9-35.2); Mean Corpuscular Hemoglobin 29.6 pg (26.7-34.0); Mean Corpuscular Volume 86.9 fL (81.0-99.0); Platelet Count 258 10^3/uL (150-450); Red Blood Count 4.97 10^6/uL (4.20-5.40); White Blood Count 6.8 10^3/uL (4.0-11.0)
[2024-08-11 11:35] LABS: Sodium 144 mmol/L (136-145)
[2024-08-11 11:36] LABS: Alanine Aminotransferase 27 U/L (14-59); Alkaline Phosphatase 71 U/L (46-116); Anion Gap 13.5; Aspartate Amino Transferase 12 U/L (15-37); Blood Urea Nitrogen 13.0 mg/dL (7.0-18.0); Calcium 8.7 mg/dL (8.5-10.1); Carbon Dioxide 27.7 mmol/L (21.0-32.0); Chloride 107 mmol/L (98-107); Estimated GFR (African America >60 (>=60 mL/min/1.73m^2); Estimated GFR (Non-African Ame >60 (>=60 mL/min/1.73m^2); Glucose 91 mg/dL (74-106); Potassium 4.2 mmol/L (3.5-5.1)
[2024-08-11 11:37] LABS: Albumin Globulin Ratio 1.1; Albumin Level 3.6 g/dL (3.4-5.0); Cholesterol 207 mg/dL (<=200); Globulin 3.4 g/dL; HDL Cholesterol 44 mg/dL (40-60); Thyroid Stimulating Hormone 0.432 uIU/mL (0.358-3.740); Total Protein 7.0 g/dL (6.4-8.2); Triglycerides 261 mg/dL (<=150); VLDL CHOLESTEROL 52.2 mg/dL
== END 2024-08-11 10:22 | disposition home or self-care (01) ==
LOC: LAB 10:23
PROVIDERS: PCP Family Medicine; Visit Provider Family Medicine
DX: Z00.00 Encounter for general adult medical examination without abnormal findings (principal); E11.65 Type 2 diabetes mellitus with hyperglycemia; E03.9 Hypothyroidism, unspecified
CPT/HCPCS: 36415; 80053; 80061; 82043; 82570; 83036; 84439; 84443; 85025

== ENCOUNTER 2024-09-29 12:40 | Outpatient (OUT) | payer BC, SELFPAY ==
--- OUTSIDE RECORDS SUMMARY | 2024-09-18 10:45 | XMS_ITS | Encounter Summary ---
Author Organization [facility] Address [address], [address] [place] [address] Care Team Providers Care Shipping And Receiving Specialist Name Role Phone Cas Galicia MD Primary Care Provider + Reason for Referral * Eval and Treat (Routine) - Open Specialty Diagnoses / Procedures Referred By Contsuraj t Referred To Contact Otolaryngology Diagnoses Multiple environmental allergies Moderate persistent asthma without complication Chronic sinusitis, unspecified location Nabor Yancey APRN - CNP [address] [place] [address] Phone: tel: fax: Jorge Irby, DO [address] [place] [address] Phone: tel: fax: Referral ID Status Reason Start Date Expiration Date V isits Requested Visits Authorized [id number] Open Specialty Services Required 09/18/2024 03/17/2025 1 1 Question Answer Reason For External Referral? Location My clinical question is: Previous ENT F/U chronic sinus issues, multiple allergic reactions. Comments The patient can be scheduled with any member of the group, including the provider with the first available appointments. Reason for Visit * Reason Comments Sleep Apnea Follow up KATELIN-using Bipap-download scanned into chart-uses Silvia. Doing better, but feels like sinuses are always irritated. Encounter Details Date Type Department Care Team (Latest Contact Info) Description 09/18/2024 10:45 AM EDT Office Visit [facility] Part of [address] [address] Nabor Yancey, LENS EDGER - PLANE CAPTAIN [address] [place] [address] Multiple environmental allergies (Primary Dx); Moderate persistent asthma without complication; Chronic sinusitis, unspecified location; KATELIN (obstructive sleep apnea) Social History Tobacco Use Types Packs/Day Years Used Date Smoking Tobacco: Never Smokeless Tobacco: Never Alcohol Use Standard Drinks/Week Comments No 0 (1 standard drink = 0.6 oz pur e alcohol) PHQ-2 Answer Date Recorded PHQ-9 Total Score 15 05/25/2021 Interpersonal Safety Domain Source: IP Abuse Scr eening Answer Date Recorded Read-Only, Retired: Physical Abuse Denies 12/18/2022 Read-Only, Retired: Verbal Abuse Denies 12/18/2022 Read-Only, Retired: Emotional abuse Denies 12/18/2022 Read-Only, Retired: Financial Abuse Denies 12/18/2022 Read-Only, Retired: Sexual abuse Denies 12/18/2022 Comments No Sex and Gender Information Value Date Recorded Sex Assigned at Not on file Legal Sex Female 10:07 AM EST Gender Identity Not on file Sexual Orientation Not on file 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 Not on file Not on file documented as of this encounter Last Filed Vital Signs Vital Sign Reading Time Taken Comments Blood Pressure 119/64 09/18/2024 11:02 AM EDT Pulse 66 09/18/2024 11:02 AM EDT Temperature 36.4 C (97.5 F) 09/18/2024 11:02 AM EDT Respiratory Rate 18 09/18/2024 11:0 2 AM EDT Oxygen Saturation 98% 09/18/2024 11: 02 AM EDT Inhaled Oxygen Concentration - - Weight 102.4 kg (225 lb 12.8 oz) 2024 11:02 AM EDT Height 162.6 cm (5' 4 ) 09/18/2024 11:0 2 AM EDT Body Mass Index 38.76 09/18/2024 11:02 AM EDT documented in this encounter Patient Instructions * Patient Instructions* Emma Messina LPN - 09/18/2024 11:04 AM EDT SURVEY: Thank you for allowing us to care for you today. You may be receiving a survey from [facility] regarding your visit today- electronically or via mail. Please help us by completing the survey as this will provide the needed feedback to ensure we are providing the very best care for you and your family. If you cannot score us a very good on any question, please call the office to discuss how we could have made your experience a very good one. Thank you. DITCH CLEANER STAFF: Brittany Pope, Carolyn TENA CLINICAL STAFF: Emma GOFF, Loraine TENA, Clementina TENA, Carie GOFF documented in this encounter Progress Notes * Nabor Yancey APRN - CNP - 09/18/2024 10:45 AM EDT Images from the original note were not included. Subjective: Patient ID: Vijaya Del Angel is a 38 y.o. female. Patient must see physician at next appointment HPI Patient here for follow-up for asthma, KATELIN, multiple environmental allergies. Last seen in office on April 2024 per [x] Dr. Mcclure [] Dr. Estrella [] Dr. Carrasco [] Dr. Jean Baptiste [] Dr. Dean [] Dr. Todd [] Dr. Balderrama [] Allison Yancey APRN- [facility] History of Present Illness Patient here for follow-up for moderate persistent asthma, multiple environmental allergies, class II obesity, KATELIN. At last appointment patient had labs ordered for respiratory allergen panel which is negative for all elements tested. IgE was <2, results scanned under media. Compliance report reviewed from 06/18/2024 through 09/15/2024. Noting 65 days used for more than 4 hours putting patient at 72% compliant. Patient is on 10/6 cmH2O with an AHI of 4.7. DME provider is [facility]. At last appointment patient was initiated onto Stiolto and Singulair. She has stopped both medications, stating that after she uses Stiolto for approximately 2 weeks she was having episodes of flushing and tachycardia and with her history of POTS is concerned for tachycardia getting lightheaded andfalling down. She feels that she was breathing better on her Stiolto with better airflow but was unsure if this was a side effect of the inhaler versus her other medical issues. She endorses ongoing issues with random rashes, redness and airway constriction to various stimuli followed previously with ENT but has not seen ENT for some time. She believes that her symptoms are similar to mast activation. Patient was referred back to ENT. Suggested trialing the Stiolto again, if she experiences a similar reaction patient was instructed to stop the medication and contact our office. PRIOR WORKUP: PFT: PFT 12/23/2023: Normal flow-volume loop, FEV1 97% of predicted with a 1% postbronchodilator change to 99% of predicted. FVC 119% of predicted with no postbronchodilator change. FEV1/FVC ratio 68, postbronchodilator 72. TLC 100% of predicted. RV 86% of predicted diffusion capacity 104% of predicted.Final impression: Mild obstructive ventilatory dysfunction which improves with bronchodilatation although does not meet ATS criteria. Normal lung volumes and diffusion capacity. PFT 03/07/2021: FVC 72% of predicted, FEV1 87% predicted. FEV1/FVC ratio 94% of predicted. FEF 25-7573% predicted. 23% improvement in FEF 25-75 postbronchodilator. No significant improvement in FVC orFEV1 postbronchodilator. TLC is 92% of predicted. DLCO 65% of predicted. Final impression: Relatively normal prebronchodilator pulmonary function test with possible small airway reversibility based on improvement in FEF 25-75. Decreased MVV suggestive of muscle weakness respiratory. DLCO is decreased however when corrected for alveolar volume is normal. CT Imaging: No results found for this or any previous visit from the past 1000 days. PET Scans: No results found for this or any previous visit from the past 1000 days. Cardiac Workup: Echocardiogram: 08/22/24 ECHO (TTE) COMPLETE (PRN CONTRAST/BUBBLE/STRAIN/3D) 08/22/2024 1:59 PM (Final) Interpretation Summary Left Ventricle: Normal left ventricular systolic function with a visually estimated EF of 55 - 60%.Left ventricle size is normal. Normal wall thickness. Normal wall motion. Normal diastolic function. Right Ventricle: Right ventricle size is normal. Normal systolic function. Mitral Valve: Mild regurgitation. Tricuspid Valve: Trace regurgitation. RVSP is 20 mmHg. Aorta: Normal sized aortic root and ascending aorta. Aortic Sinus Valsalva is 2.6 cm. Ascending Aorta is 2.2 cm. Pericardium: The pericardium is normal. No pericardial effusion. Signed by: Gosia Rangel MD on 08/22/2024 1:59 PM Cardiac Cath: Sleep Study: Sleep study 05/18/2020: Patient had 0 central apneas, 98 obstructive apneas. 6 hypopneas during REM sleep and 82 during NREM sleep. This led to an apnea- hypopnea index of 25/h. Average SPO2 was 94% while awake and minimum SPO2 was 34%. A total of 120 limb movements corresponding to a PLM index of 17.8/h with 12.9 events per hour causing arousals. Laboratory Evaluation: ABG: No results found for: PH , PHART , POCPH , PCO2 , GXC4YSB , POCPCO2 , PO2 , PO2ART , POCPO2 , HCO3 , KFF1RPM , POCHCO3 , BE , BEART , O2SAT , T5CYIUIU , XHWQ3OQO VBG: Lab Results Component Value Date PHVEN 7.481 (H) 01/08/2022 JJZ2EMH 21.7 (L) 01/08/2022 Y3OMAAAS 94.9 (H) 01/08/2022 CBC: Lab Results Component Value Date WBC 7.4 12/18/2022 RBC 5.10 12/18/2022 HGB 14.8 12/18/2022 HCT 44.3 12/18/2022 PLT 280 12/18/2022 MCV 86.9 12/18/2022 MCH 29.0 12/18/2022 MCHC 33.4 12/18/2022 RDW 11.6 (L) 12/18/2022 LYMPHOPCT 23 (L) 12/18/2022 MONOPCT 6 12/18/2022 EOSPCT 3 12/18/2022 BASOPCT 1 12/18/2022 MONOSABS 0.44 12/18/2022 LYMPHSABS 1.71 12/18/2022 EOSABS 0.19 12/18/2022 BASOSABS 0.04 12/18/2022 DIFFTYPE NOT REPORTED 11/01/2020 Eosinophil Count: No data recorded IgE: No results found for: IGE Allergen panel:No results found for: REGVALL Alpha-1 antitrypsin:No results found for: A1A CMP: Lab Results Component Value Date NA 138 12/18/2022 K 4.0 12/18/2022 CL 102 12/18/2022 CO2 26 12/18/2022 BUN 12 12/18/2022 CREATININE 1.0 (H) 12/18/2022 GLUCOSE 97 12/18/2022 MG 1.8 01/07/2022 CALCIUM 9.5 12/18/2022 BILITOT 0.3 01/30/2022 BILIDIR <0.08 04/16/2021 IBILI Can not be calculated 04/16/2021 ALT 40 (H) 01/30/2022 AST 17 01/30/2022 ALKPHOS 76 01/30/2022 AMYLASE 68 12/29/2011 LIPASE 46 05/20/2021 Coagulation Profile: Lab Results Component Value Date INR 1.0 12/30/2011 PROTIME 11.1 12/30/2011 APTT 33.2 12/30/2011 BNP: Lab Results Component Value Date PROBNP 485 (H) 01/08/2022 D-Dimer: Lab Results Component Value Date DDIMER 0.36 12/18/2022 Others labs: Lab Results Component Value Date TSH 0.08 (L) 02/17/2022 Lab Results Component Value Date SEDRATE 9 05/20/2021 CRP <3.0 05/20/2021 No results found for: IRON , TIBC , FERRITIN , FOLATE , LDH No results found for: SPEP , UPEP , PSA , CEA , CA125 , LU2647 , CA199 No results found for: RPR , HIV No data to display Immunizations: Immunization History Administered Date(s) Administered Influenza Virus Vaccine 11/20/2019 BP 119/64 (BP Site: Left Upper Arm, Patient Position: Sitting, BP Cuff Size: Large Adult) Pulse 66 Temp 97.5 ??F (36.4 ??C) (Temporal) Resp 18 Ht 1.626 m (5' 4 ) Wt 102.4 kg (225 lb 12.8 oz) LMP 01/13/2016 SpO2 98% BMI 38.76 kg/m?? Past Medical History: Diagnosis Date Adenovirus infection 01/10/2022 Arachnoid cyst SPINE Asthma Bulging discs C4-C7 Celiac disease Diabetes mellitus (HCC) GERD (gastroesophageal reflux disease) 2010 Cesar's disease History of PCOS Hypothyroidism Irritable bowel syndrome 2010 Plasma protein disorder 2009 Clotting disorder Platelet disorder (HCC) Pseudotumor cerebri RSV (respiratory syncytial virus infection) 01/10/2022 Varicosities of pelvis Past Surgical History: Procedure Laterality Date ABDOMINAL EXPLORATION SURGERY 2009 Adhesion removal-laparoscopy APPENDECTOMY 01/02/2012 [place] SECTION 2008 CHOLECYSTECTOMY 2009 COLONOSCOPY 2009 a polyp was removed ENDOMETRIAL ABLATION ESOPHAGOGASTRODUODENOSCOPY 01/31/2023 HYSTERECTOMY (CERVIX STATUS UNKNOWN) INSERTABLE ANIMAL HERDER loop recorder NASAL SEPTUM SURGERY 2010 TUBAL LIGATION 2007 UPPER GASTROINTESTINAL ENDOSCOPY 2009 acid reflux, possibly an ulcer Family History Problem Relation Age of Onset Diabetes Mother Hypertension Mother Hypertension Father Diabetes Father Heart Disease Father Social History Socioeconomic History Marital status: Spouse name: Not on file Number of children: Not on file Years of education: Not on file Highest education level: Not on file Occupational History 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: [employer] Tobacco Use Smoking status: Never Smokeless tobacco: Never Vaping Use Vaping status: Never Used Substance and Sexual Activity Alcohol use: No Drug use: No Sexual activity: Yes Other Topics Concern Not on file Social History Narrative Not on file Social Drivers of Health Financial Resource Strain: Medium Risk (08/08/2024) Received from [facility] Overall Financial Resource Strain (CARDIA) Difficulty of Paying Living Expenses: Somewhat hard Food Insecurity: Food Insecurity Present (08/08/2024) Received from [facility] Hunger Vital Sign Within the past 12 months, you worried that your food would run out before you got the money to buymore.: Sometimes true Within the past 12 months, the food you bought just didn't last and you didn't have money to get more.: Never true Transportation Needs: No Transportation Needs (08/08/2024) Received from [facility] PRAPARE - Transportation Lack of Transportation (Medical): No Lack of Transportation (Non-Medical): No Physical Activity: Sufficiently Active (08/08/2024) Received from [facility] Exercise Vital Sign On average, how many days per week do you engage in moderate to strenuous exercise (like a brisk walk)?: 6 days On average, how many minutes do you engage in exercise at this level?: 60 min Stress: Stress Concern Present (08/08/2024) Received from [facility] [employer] - Occupational Stress Questionnaire Feeling of Stress : Very much Social Connections: Unknown (08/08/2024) Received from [facility] Social Connection and Isolation Panel In a typical week, how many times do you talk on the phone with family, friends, or neighbors?: More than three times a week How often do you get together with friends or relatives?: Patient declined How often do you attend confucianist or jew services?: Patient declined Do you belong to any clubs or organizations such as confucianist groups, unions, fraternal or athletic groups, or school groups?: No How often do you attend meetings of the clubs or organizations you belong to?: Patient declined Are you , , , , never , or living with a partner?: Intimate Partner Violence: Unknown (08/08/2024) Received from [facility] Humiliation, Afraid, Rape, and Kick questionnaire Within the last year, have you been afraid of your partner or ex-partner?: No Within the last year, have you been humiliated or emotionally abused in other ways by your partner or ex-partner?: Patient declined Within the last year, have you been kicked, hit, slapped, or otherwise physically hurt by your partner or ex-partner?: No Within the last year, have you been raped or forced to have any kind of sexual activity by your partner or ex-partner?: No Housing Stability: Low Risk (08/08/2024) Received from [facility] Housing Stability Vital Sign In the last 12 months, was there a time when you were not able to pay the mortgage or rent on time?: No In the past 12 months, how many times have you moved where you were living?: 0 At any time in the past 12 months, were you homeless or living in a alf (including now)?: No Review of Systems Constitutional: Decreased activity tolerance secondary to exertional dyspnea. HENT: Denies sinus pain/pressure. Denies rhinorrhea. Occasional cough Eyes: Negative. Respiratory: Exertional dyspnea. No significant cough. Denies sputum production-specifically purulent or hemoptysis Cardiovascular: Negative. Gastrointestinal: Negative. Endocrine: Negative. Genitourinary: Negative. Musculoskeletal: Negative. Skin: Negative. Allergic/Immunologic: Negative. Multiple issues with allergic reaction to various stimuli with scattered areas of rash. Neurological: Negative. Hematological: Negative. Psychiatric/Behavioral: Negative. Objective: Physical Exam General appearance - alert, well appearing, and in no distress, oriented to person, place, and time, and overweight Mental status - alert, oriented to person, place, and time Eyes - pupils equal and reactive, extraocular eye movements intact Ears -not examined Nose - normal and patent, no erythema, discharge or polyps Mouth - mucous membranes moist, pharynx normal without lesions Neck - supple, no significant adenopathy Chest - clear to auscultation, no wheezes, rales or rhonchi, symmetric air entry Heart -normal rate, regular rhythm, normal S1, S2, no murmurs, rubs, clicks or gallops Abdomen - soft, nontender, nondistended, no masses or organomegaly Neuro- alert, oriented, normal speech, no focal findings or movement disorder noted} Extremities - peripheral pulses normal, no pedal edema, no clubbing or cyanosis Skin - normal coloration and turgor, no rashes, no suspicious skin lesions noted Wt Readings from Last 3 Encounters: 09/18/24 102.4 kg (225 lb 12.8 oz) 08/22/24 101.2 kg (223 lb 1.7 oz) 04/17/24 101.2 kg (223 lb 1.6 oz) Results for orders placed or performed during the hospital encounter of 08/22/24 Echo (TTE) complete (PRN contrast/bubble/strain/3D) Result Value Ref Range LV EDV A2C 86 mL LV EDV A4C 101 mL LV ESV A2C 32 mL LV ESV A4C 42 mL IVSd 0.8 0.6 - 0.9 cm LVIDd 4.7 3.9 - 5.3 cm LVIDs 3.2 cm LVOT Mean Gradient 3 mmHg LVOT VTI 26.3 cm LVOT Peak Velocity 1.2 m/s LVOT Peak Gradient 6 mmHg LVPWd 0.8 0.6 - 0.9 cm LV E' Lateral Velocity 14.60 cm/s LV Ejection Fraction A2C 63 % LV Ejection Fraction A4C 59 % EF BP 60 55 - 100 % LA Minor [place] 4.9 cm LA Major [place] 5.5 cm LA Area 2C 16.6 cm2 LA Area 4C 19.3 cm2 LA Volume MOD A2C 44 22 - 52 mL LA Volume MOD A4C 51 22 - 52 mL LA Volume BP 50 22 - 52 mL AV Cusp Mmode 1.8 cm AV Mean Gradient 5 mmHg AV VTI 34.3 cm AV Mean Velocity 1.0 m/s AV Peak Velocity 1.6 m/s AV Peak Gradient 10 mmHg Aortic Root 1.6 cm Ascending Aorta 2.2 cm Sinotubular Junction 1.8 cm Aortic Sinus Valsalva 2.6 cm MV E Wave Deceleration Time 174.0 ms MV A Velocity 0.54 m/s MV E Velocity 0.79 m/s MA Max Velocity 0.7 m/s Pulmonary Artery EDP 2 mmHg PV Max Velocity 1.0 m/s PV Peak Gradient 4 mmHg TAPSE 2.4 >=1.7 cm TR Max Velocity 2.07 m/s TR Peak Gradient 17 mmHg Body Surface Area 2.14 m2 Fractional Shortening 2D 32 28 - 44 % LV ESV Index A4C 20 mL/m2 LV EDV Index A4C 49 mL/m2 LV ESV Index A2C 16 mL/m2 LV EDV Index A2C 42 mL/m2 LVIDd Index 2.29 cm/m2 LVIDs Index 1.56 cm/m2 LV RWT Ratio 0.34 LV Mass 2D 122.3 67 - 162 g LV Mass 2D Index 59.6 43 - 95 g/m2 MV E/A 1.46 E/E' Lateral 5.41 LA Volume Index BP 24 16 - 34 ml/m2 LA Volume Index MOD A2C 21 16 - 34 ml/m2 LA Volume Index MOD A4C 25 16 - 34 ml/m2 Ao Root Index 0.78 cm/m2 Aortic Sinus Valsalva Index 1.27 cm/m2 Ascending Aorta Index 1.07 cm/m2 AV Velocity Ratio 0.75 LVOT:AV VTI Index 0.77 Est. RA Pressure 3 mmHg RVSP 20 mmHg EF Physician 60 % Echo (TTE) complete (PRN contrast/bubble/strain/3D) Result Date: 08/22/2024 Left Ventricle: Normal left ventricular systolic function with a visually estimated EF of 55 - 60%.Left ventricle size is normal. Normal wall thickness. Normal wall motion. Normal diastolic function. Right Ventricle: Right ventricle size is normal. Normal systolic function. Mitral Valve: Mild regurgitation. Tricuspid Valve: Trace regurgitation. RVSP is 20 mmHg. Aorta: Normal sized aortic root and ascending aorta. Aortic Sinus Valsalva is 2.6 cm. Ascending Aorta is 2.2 cm. Pericardium: The pericardium is normal. No pericardial effusion. Assessment/Plan: 1. Multiple environmental allergies 2. Moderate persistent asthma without complication 3. Chronic sinusitis, unspecified location 4. KATELIN (obstructive sleep apnea) Assessment & Plan KATELIN. Patient to continue on PAP therapy, reviewed her compliance report with her. Multiple environmental allergies, moderate persistent asthma, history of chronic sinusitis. Patient with multiple environmental triggers, respiratory allergen panel was negative. Patient was previously on Stiolto started at last appointment but had stopped medication due to concern for an allergic reaction with tachycardia and flushing. She was unclear if this is related to her history ofPOTS versus her true reaction to the medication but endorse that she did feel better on Stiolto. Suggested trialing the medication again, if she experiences similar side effects then we would need tostop the medication, may need to separate out the bronchodilator given her sensitivity to tachycardia with underlying POTS. Patient was referred back to ENT, previously had been following but failed f ollow-up for unclear reasons. Would likely benefit from closer relationship with ENT given her multiple reactions to environmental triggers with no clear documented allergic trigger on testing. Patient will follow-up in 6 months. Please note that this chart was generated using voice recognition [employer] dictation software. Although every effort was made to ensure the accuracy of this automated physical therapist center manager, some errors in physical therapist center manager may have occurred. The patient (or guardian, if applicable) and other individuals in attendance with the patient were advised that Artificial Intelligence will be utilized during this visit to record, process the conversation to generate a clinical note, and support improvement of the AI technology. The patient (or guardian, if applicable) and other individuals in attendance at the appointment consented to the use of AI, including the recording. documented in this encounter Plan of Treatment Upcoming Encounters Date Type Department Care Team (Late st Contact Info) Description 03/19/2025 9:45 AM EST Office Visit [facility] Part of [facility] [address] [place] [address] David Mcclure MD [address] [address] KATELIN; 6 mth follow up with Samuel Vega Scheduled Referrals Name Type Priority Associated Diagnoses Orde r Schedule External Referral To ENT Outpatient Referral Routine Multiple environmental allergies Moderate persistent asthma without complication Chronic sinusitis, unspecified location Ordered: 09/18/2024 documented as of this encounter Visit Diagnoses Diagnosis Multiple environmental allergies- Primary Moderate persistent asthma without complication Unspecified asthma Chronic sinusitis, unspecified location KATELIN (obstructive sleep apnea) Obstructive sleep apnea (adult) (pediatric) documented in this encounter Care Teams Shipping And Receiving Specialist Relationship Specialty Start Date End Date Cas Galicia MD PCP - General 09/04/11 documented as of this encounter
--- OUTSIDE RECORDS SUMMARY | 2024-09-25 11:10 | XMS_ITS | Encounter Summary ---
Author Organization [facility] Address [address] [place] [address] Care Team Providers Care Billiard Table Repairer Name Role Phone Cas Galicia MD Primary Care Provider [phone] Encounter Details Date Type Department Care Team (Latest Contact Info) Description 09/25/2024 11:10 AM EDT Ancillary Procedure [facility] [address] [place] [address] Awareness of heartbeats Social History Tobacco Use Types Packs/Day Years Used Date Smoking Tobacco: Never Passive Smoke Exposure: Never Smokeless Tobacco: Never Alcohol Use Standard Drinks/Week Comments Not Currently 0 (1 standard drink = 0.6 oz pur e alcohol) occ Humiliation, Afraid, Rape, and Kick questionnair e Answer Date Recorded Within the last year, have y ou been afraid of your partner or ex-partner? No 01/10/2023 Within the last year, have y ou been humiliated or emotionally abused in other ways by your partner or ex-partner? No Within the last year, have y ou been kicked, hit, slapped, or otherwise physically hurt by your partner or ex-partner? No 01/10/2023 Within the last year, have y ou been raped or forced to have any kind of sexual activity by your partner or ex-partner? No 01/10/2023 PHQ-2 Answer Date Recorded Patient Health Questionnaire-2 Score 0 08/12/2024 Exercise Vital Sign Answer Date Recorde d On average, how many days pe r week do you engage in moderate to strenuous exercise (like a brisk walk)? 7 days 07/21/2022 On average, how many minutes do you engage in exercise at this level? 30 min 07/21/2022 PR Safety & Environment Answer Date Rec orded Within the last year, have y ou been afraid of your partner or ex-partner? No 01/10/2023 Within the last year, have y ou been humiliated or emotionally abused in other ways by your partner or ex-partner? No 01/10/2023 Within the last year, have y ou been kicked, hit, slapped, or otherwise physically hurt by your partner or ex-partner? No 01/10/2023 Within the last year, have y ou been raped or forced to have any kind of sexual activity by your partner or ex-partner? No 01/10/2023 Physically or Sexually Abused Not on file Comments No Sex and Gender Information Value Date Recorded Sex Assigned at Female 09/26/2024 9:10 PM EDT Legal Sex Female 1:25 PM EDT Gender Identity Female 09/26/2024 9:10 PM EDT Sexual Orientation Heterosexual or Straight 09/06 9:10 PM EDT documented as of this encounter Plan of Treatment Not on file documented as of this encounter Procedures Procedure Name Priority Date/Time Associated Diagnosis Comments CARDIAC DEVICE CHECK CHECK - REMOTE Routine 09/26/2024 10:33 AM EDT Awareness of heartbeats documented in this encounter Results * CARDIAC DEVICE CHECK - REMOTE - LOOP RECORDER (ILR) (09/26/2024 10:33 AM EDT) us Jorge Montana MD CV IMPLANTABLE CARDIAC DEVICE SD OCEDURES Final Result CPACS documented in this encounter Visit Diagnoses Diagnosis Awareness of heartbeats documented in this encounter Care Teams Billiard Table Repairer Relationship Specialty Start Date End Date Cas Galicia MD [address] [place] [address] PCP - General 1/13/23 documented as of this encounter
--- OUTSIDE RECORDS SUMMARY | 2024-09-25 15:45 | XMS_ITS | Encounter Summary ---
Author Organization [facility] Address [address] [place] [address] Care Team Providers Care Network Operations Project Manager Name Role Phone Cas Galicia MD Primary Care Provider [phone] Reason for Referral * Consultation (Routine) - Authorized Specialty Diagnoses / Procedures Referred By Contsuraj t Referred To Contact Otolaryngology Diagnoses Chronic rhinosinusitis Procedures [facility] OFFICE/OUTPATIENT [facility] 60 MINUTES Cas Galicia MD [address] [place] [address] Phone: tel: fax: Terri Smith MD [address] [address] Phone: tel: fax: Referral ID Status Reason Start Date Expiration Date Visits Requested Visits Authorized [id number] Authorized Specialty Services Required 09/25/2024 03/24/2025 1 1 Reason for Visit * Reason Comments Rash Sinusitis Pressure feels like something blocking sinus Ear Drainage Arm Injury Right arm pain with swelling and pain into elbow Encounter Details Date Type Department Care Team (Late st Contact Info) Description 09/25/2024 3:45 PM EDT Office Visit [facility] [address] [place] [phone] Cas Galicia MD [address] [place] [phone] Chronic rhinosinusitis (Primary Dx); Right wrist pain; [...] declined 08/08/2024 How often do you attend [facility] or gnosticist services? Patient declined 08/08/2024 Do you belong to any clubs o r organizations such as voodoo groups, unions, fraternal or athletic groups, or [...] medical care, and heating? Somewhat hard 08/08/2024 [facility] of Occupat ional Health - Occupational Stress Questionnaire Answer Date [...] place to sleep or slept in a jail (including now)? Patient declined 04/08/2023 Housing Stability [...] any time in the past 12 m [facility], were you homeless or living in a jail (including now)? No 08/08/2024 Comments No Sex [...] Description 12/01/2024 10:40 AM EDT Office Visit [facility] [address] [place] [address] Rubens Tim DO [address] [place] [place], [place] [id number] 02/11/2025 9:00 AM EST Office Visit [facility] [address] [place] [address] Cas Galicia MD [address] [place] [phone] 07/08/2025 8:20 AM EDT Office Visit [facility] [address] [place] [address] Jodi Holden, PONCE [address] [place] [address] Scheduled Orders Name Type Priority Associated Diagnoses [...] pain documented in this encounter Care Teams Network Operations Project Manager Relationship Specialty Start Date End Date Cas Galicia MD [address] [facility] [place] [address] PCP - General Family Medicine 04/09/23 documented as of this encounter
--- OUTSIDE RECORDS SUMMARY | 2024-09-29 12:43 | XMS_ITS | Encounter Summary ---
Author Organization [facility] Address [address] [place] [address] Care Team Providers Care Electronic Test Technician Name Role Phone Cas Galicia MD Primary Care Provider [phone] Cas Galicia MD Unavailable Cas Galicia MD Unavailable Encounter Details Date Type Department Care Team (Late st Contact Info) Description 08/21/2023 Clinisync Result Encounter [facility] External Department Unsolicited Provider, Generic External Data Social History Tobacco Use Types Packs/Day Years Used Date Smoking Tobacco: Never Smokeless Tobacco: Never Alcohol Use Standard Drinks/Week Comments Never 0 (1 standard drink = 0.6 oz pur e alcohol) Social Connection and Isolat ion Panel [NHANES] Answer Date Recorded In a typical week, how many times do you talk on the phone with family, friends, or neighbors? More than three times a week 04/08/2023 How often do you get togethe r with friends or relatives? Once a week 04/08/2023 How often do you attend chur or denominational services? Patient declined 04/08/2023 Do you belong to any clubs o r organizations such as yazidi groups, unions, fraternal or athletic groups, or school groups? Patient declined 04/08/2023 How often do you attend meet ings of the clubs or organizations you belong to? Patient declined 04/08/2023 Are you , , di vorced, , never , or living with a partner? 04/08/2023 AUDIT-C Answer Date Recorded Q1: How often do you have a drink containing alcohol? Never 04/08/2023 Q2: How many drinks containi ng alcohol do you have on a typical day when you are drinking? Patient does not drink Q3: How often do you have si x or more drinks on one occasion? Never 04/08/2023 Overall Financial Resource Strain (CARDIA) Answe r Date Recorded How hard is it for you to pa y for the very basics like food, housing, medical care, and heating? Somewhat hard 04/08/2023 [facility] Occupat ional [facility] - Occupational Stress Questionnaire Answer Date Recorded Do you feel stress - tense, restless, nervous, or anxious, or unable to sleep at night because your mind is troubled all the time - these days? Only a little 04/08/2023 Exercise Vital Sign Answer Date Recorde d On average, how many days pe r week do you engage in moderate to strenuous exercise (like a brisk walk)? 4 days 04/08/2023 On average, how many minutes do you engage in exercise at this level? 20 min 04/08/2023 Hunger Vital Sign Answer Date Recorded Within the past 12 months, y ou worried that your food would run out before you got the money to buy more. Patient declined Within the past 12 months, t he food you bought just didn't last and you didn't have money to get more. Patient declined 04/2023 PRAPARE - Transportation Answer Date Re corded In the past 12 months, has l ack of transportation kept you from medical appointments or from getting medications? No 04/2023 In the past 12 months, has l ack of transportation kept you from meetings, work, or from getting things needed for daily living? No 04/08/2023 Housing Stability Vital Sign Answer Ziyad [...] place to sleep or slept in a intermediate (including now)? Patient declined 04/08/2023 Comments Unknown Sex and Gender Information Value Date Recorded Sex Assigned at Not on file Legal Sex Female 6:40 PM EDT Gender Identity Not on file Sexual Orientation Not on file documented as of this encounter Plan of Treatment Upcoming Encounters Date Type Department Care Team (Late st Contact Info) Description 12/01/2024 10:40 AM EDT Office Visit [facility] [address] [place] [address] Rubens Tim DO [address] [place] [address] 02/11/2025 9:00 AM EST Office Visit [facility] [address] [place] [address] Cas Galicia MD [address] [place] [address] 07/08/2025 8:20 AM EDT Office Visit [facility] [address] [place] [phone] Jodi Holden PA [address] [place], [place] [id number] documented as of this encounter Procedures Procedure Name Priority Date/Time Associated Diagnosis Comments US RENAL BI 08/21/2023 11:25 AM EDT documented in this encounter Results * US RENAL BI (08/21/2023 11:25 AM EDT) Anatomical Region Laterality Modality Other 08/21/2023 11:2 5 AM EDT Narrative 08/21/2023 11:28 AM EDT The [address] [address] Ultrasound Report Signed Patient: VIJAYA TRAN MR#: [id number] : 1985 Acct:[id number] Age/Sex: 37 / F ADM Date: 08/21/23 Loc: US Attending Dr: Loraine SERRA Ordering Physician: Loraine Burnham Date of Service: 08/21/23 Procedure(s): US renal BI Accession Number(s): [id number] cc: Cas Galicia M.D.; Loraine Burnham The [place] [id number] Patient Name: VIJAYA TRAN MRN: [id number] date: 1985 Sex: F Assigned Patient Location: US Current Patient Location: US Accession/Order Number: [id number] Exam Date: 08/21/2023 10:50 Report Date: 08/21/2023 11:25 At the request of: LORAINE BURNHAM Procedure: US renal BI EXAMINATION: US renal BI HISTORY: Kidney Stone N20.0 COMPARISON: 09/02/2022 TECHNIQUE: Ultrasound examination was performed of the bladder. FINDINGS: Right Kidney: Normal in size, contour and echotexture. The cortex measures 1.2 cm. No solid cortical mass, hydronephrosis or obstructing nephrolithiasis Height: 4.33 cm Length: 10.77 cm Width: 4.47 cm Left Kidney: Normal in size, contour and echotexture. The cortex measures 0.9 cm. No solid cortical mass. Mild pelviectasis. 8 mm nonobstructing nephrolith Height: 4.46 cm Length: 12.12 cm Width: 5.44 cm Urinary bladder: 243 mL. Post void imaging not performed. No bladder mass. US/US renal BI IMPRESSION: Mild left pelviectasis and nonobstructing nephrolithiasis Electronically authenticated by: BELÉN ANDRADE Date: 08/21/2023 11:25 Dictated By: Belén Andrade M.D. Signed By: 08/21/23 1128 DD/ 1125 TD/TT: Residence Supervisor: Procedure Note Radiology, Radiologist, - 08/21/[address] [address] Ultrasound Report Signed Patient: VIJAYA TRAN SMR#: [id number] : 1985Acct:[id number] Age/Sex: 37 / FADM Date: 08/21/23 Loc: US Attending Dr: Loraine SERRA Ordering Physician: Loraine Burnham Date of Service: 08/21/23 Procedure(s): US renal BI Accession Number(s): [id number] cc: Cas Galicia M.D.; Loraine Burnham [place] [id number] Patient Name: VIJAYA TRAN MRN: [facility]:[id number] date: 1985 Sex: F Assigned Patient Location: US Current Patient Location: US Accession/Order Number: [id number] Exam Date: 08/21/2023 10:50 Report Date: 08/21/2023 11:25 At the request of: LORAINE BURNHAM Procedure: US renal BI EXAMINATION: US renal BI HISTORY: Kidney Stone N20.0 COMPARISON: 09/02/2022 TECHNIQUE: Ultrasound examination was performed of the bladder. FINDINGS: Right Kidney: Normal in size, contour and echotexture. The cortex measures1.2 cm. No solid cortical mass, hydronephrosis or obstructing nephrolithiasis Height: 4.33 cm Length: 10.77 cm Width: 4.47 cm Left Kidney: Normal in size, contour and echotexture. The cortex measures0.9 cm. No solid cortical mass. Mild pelviectasis. 8 mm nonobstructingnephrolith Height: 4.46 cm Length: 12.12 cm Width: 5.44 cm Urinary bladder: 243 mL. Post void imaging not performed. No bladder mass. US/US renal BI IMPRESSION: Mild left pelviectasis and nonobstructing nephrolithiasis Electronically authenticated by: BELÉN ANDRADE Date: 08/21/2023 11:25 Dictated By: Belén Andrade M.D. Signed By:08/21/23 1128 DD/ 1125 TD/TT: Residence Supervisor: us Generic External Data Provider [facility] Final Result documented in this encounter Visit Diagnoses Not on filedocumented in this encounter Care Teams Electronic Test Technician Relationship Specialty Start Date End Date Cas Galicia MD [address] [place] [phone] PCP - General Family Medicine 04/09/23 Cas Galicia MD [address] [place] [address] PCP - [employer] 06/06/23 Cas Galicia MD [address] [place] [address] PCP - [employer] 11/06/23 documented as of this encounter
--- OUTSIDE RECORDS SUMMARY | 2024-09-29 12:43 | XMS_ITS | Encounter Summary ---
Author Organization [facility] Address [address] [place] [address] Care Team Providers Care Enrollment Consultant Name Role Phone Cas Galicia MD Primary Care Provider [phone] Sai Perez MD Unavailable [phone] Rubens Tim DO Unavailable [phone] Source Comments In the event this information is protected by the Federal Confidentiality of Alcohol and Drug AbusePatient Records regulations: The Federal rules restrict any use of the information to criminally investigate or prosecute any alcohol or drug abuse patient.[facility] Encounter Details Date Type Department Care Team (Late st Contact Info) Description 12/20/2021 Patient Msg [facility] [address] [place] [address] Dayanna Sotomayor, [place] [address] [place] [address] genetic test result Social History Tobacco Use Types Packs/Day Years Used Date Smoking Tobacco: Never Passive Smoke Exposure: Past Smokeless Tobacco: Never Alcohol Use Standard Drinks/Week Comments Not Currently 0 (1 standard drink = 0.6 oz pur e alcohol) PHQ-2 Answer Date Recorded PHQ-2 score 2 11/08/2021 Area Deprivation Index Answer Date Aramis rded National Score (1-100), lower number is lower ri sk 73 08/15/2021 State Score (1-10), lower number is lower risk N ot on file 08/15/2021 Data from: https://www.neighborhoodatlas.medicine.[facility].edu/. Last address used for calculation [address] 08/15/2021 Comments No Sex and Gender Information Value Date Recorded Sex Assigned at Female 09/26/2020 5:05 PM EDT Legal Sex Female 4:12 PM EST Gender Identity Female 09/26/2020 5:05 PM EDT Sexual Orientation Straight 09/26/2020 5: 05 PM EDT documented as of this encounter Functional Status * Are you deaf or do you have serious difficulty hearing? Answer Date of Assessment Author No 02/23/2014 2:04 PM Ang Page MA * Are you blind or do you have serious difficulty seeing, even when wearing glasses? Answer Date of Assessment Author No 02/23/2014 2:04 PM Ang Page MA * Do you have serious difficulty walking or climbing stairs? Answer Date of Assessment Author No 02/23/2014 2:04 PM Ang Page MA * Do you have difficulty dressing or bathing? Answer Date of Assessment Author No 02/23/2014 2:04 PM Ang Page MA * Because of a physical, mental, or emotional condition, do you have difficulty doing errands alone such as visiting a doctor's office or shopping? Answer Date of Assessment Author No 02/23/2014 2:04 PM Ang Page MA documented as of this encounter Mental Status * Because of a physical, mental, or emotional condition, do you have serious difficulty concentrating, remembering, or making decisions? Answer Entry Date Author No 02/23/2014 2:04 PM Ang Page MA documented in this encounter Plan of Treatment Upcoming Encounters Date Type Department Care Team (Late st Contact Info) Description 09/30/2024 9:15 AM EDT Office Visit [facility] [address] [place] [address] [place] [address] 1 year follow up 09/30/2024 9:30 AM EDT Visit (SP) Office Hematology/Oncology [address] [place] [address] Shweta Masters APRN.DENTAL TECHNOLOGY ADVISOR [address] [place] [address] 1 year follow up documented as of this encounter Visit Diagnoses Not on filedocumented in this encounter Care Teams Enrollment Consultant Relationship Specialty Start Date End Date Cas Galicia MD PCP - General Family Medicine 02/20/14 Sai Perez MD [address] [place] [address] Primary Staff Physician Cardiology 07/21/21 Rubens Tim DO [address] [place] [address] [place] [address] Referring Cube Cutter 08/05/21 documented as of this encounter
--- OUTSIDE RECORDS SUMMARY | 2024-09-29 12:43 | XMS_ITS | Encounter Summary ---
Author Organization [facility] Address [address] [place] [address] Care Team Providers Care Provider Network Analyst Name Role Phone Cas Galicia MD Primary Care Provider [phone] Sai Perez MD Unavailable [phone] Rubens Tim DO Unavailable [phone] Source Comments In the event this information is protected by the Federal Confidentiality of Alcohol and Drug AbusePatient Records regulations: The Federal rules restrict any use of the information to criminally investigate or prosecute any alcohol or drug abuse patient.[facility] Encounter Details Date Type Department Care Team (Late st Contact Info) Description 12/26/2021 Patient Msg Neurology [address] [place] [address] Provider, [facility] Sleep Study Confirmation Social History Tobacco Use Types Packs/Day Years [...] N ot on file 08/15/2021 Data from: https://www.neighborhoodatlas.medicine.[facility]/. Last address used for calculation [address] [...] Description 09/30/2024 9:15 AM EDT Office Visit [facility] [address] [place] [address] [place] [address] 1 year follow up 09/30/2024 9:30 AM EDT Visit (SP) Office Hematology/Oncology [address] [place] [place] [address] Shweta Masters APRN.[address] [place] [address] 1 year follow up documented as of this encounter Visit Diagnoses Not on filedocumented in this encounter Care Teams Provider Network Analyst Relationship Specialty Start Date End Date Cas Galicia MD PCP - General Family Medicine 02/20/14 Sai Perez MD [address] [place] [address] Primary Staff Physician Cardiology 07/21/21 Rubens Tim DO [address] [place] [address] [place] [address] Referring Retail Representative 08/05/21 documented as of this encounter
--- OUTSIDE RECORDS SUMMARY | 2024-09-29 12:43 | XMS_ITS | Encounter Summary ---
Author Organization [facility] Address [address] [place] [address] Care Team Providers Care Chief Meter Reader Name Role Phone Cas Galicia MD Primary Care Provider [phone] Sai Perez MD Unavailable [phone] Rubens Tim DO Unavailable [phone] Source Comments In the event this information is protected by the Federal Confidentiality of Alcohol and Drug AbusePatient Records regulations: The Federal rules restrict any use of the information to criminally investigate or prosecute any alcohol or drug abuse patient.[facility] Encounter Details Date Type Department Care Team (Late st Contact Info) Description 11/28/2021 Get Medical Advice Cardiology [address] [place] [address] Sai Perez MD [address] [place] [address] Follow up after testing Social History Tobacco Use Types Packs/Day Years [...] N ot on file 08/15/2021 Data from: https://www.neighborhoodatlas.medicine.[facility]/. Last address used for calculation [address] 08/15/2021 Comments No Sex and Gender Information Value Date Recorded Sex Assigned at Female 09/26/2020 5:05 PM EDT Legal Sex Female 4:12 PM EST Gender Identity Female 09/26/2020 5:05 PM EDT Sexual Orientation Straight 09/26/2020 5: 05 PM EDT COVID-19 Exposure Response Date Recorded In the last 10 days, have yo u been in contact with someone who was confirmed or suspected to have Coronavirus/COVID-19? No / Unsure 11/18/2021 1:40 PM EDT documented as of this encounter [...] Upcoming Encounters Date Type Department Care Team (Jayant araujo Contact Info) Description 09/30/2024 9:15 AM EDT Office Visit [facility] [address] [place] [address] 1 year follow up 09/30/2024 9:30 AM EDT Visit (SP) Office Hematology/Oncology [address] [place] [address] Shweta Masters APRN.ECHOCARDIOGRAPH TECH [address] [place] [address] 1 year follow up documented as of this encounter Visit Diagnoses Not on filedocumented in this encounter Care Teams Chief Meter Reader Relationship Specialty Start Date End Date Cas Galicia MD PCP - General Family Medicine 02/20/14 Sai Perez MD [address] [place] [address] Primary Staff Physician Cardiology 07/21/21 Rubens Tim DO [address] [place] [address] [place] [address] Referring Personnel Technician 08/05/21 documented as of this encounter
--- OUTSIDE RECORDS SUMMARY | 2024-09-29 12:43 | XMS_ITS | Encounter Summary ---
Author Organization [facility] Address [address] [place] [place] [address] Care Team Providers Care Apiculture Teacher Name Role Phone Cas Galicia MD Primary Care Provider [phone] Cas Galicia MD Unavailable Encounter Details Date Type Department Care Team (Late st Contact Info) Description 12/05/2023 Abstract [facility] [address] [place] [address] Rubens Tim DO [address] [place] [address] Social History Tobacco Use Types Packs/Day Years [...] 04/08/2023 How often do you attend chur ch or mosque services? Patient declined 04/08/2023 Do you belong to any clubs o r organizations such as christian groups, unions, fraternal or athletic groups, or [...] medical care, and heating? Somewhat hard 04/08/2023 [facility] Occupat ional Health - Occupational Stress [...] place to sleep or slept in a m[facility]p (including now)? Patient declined 04/08/2023 Comments No Sex and Gender Information Value Date Recorded Sex Assigned at Not on file Legal Sex Female 6:40 PM EDT Gender Identity Not on file Sexual Orientation Not on file documented as of this encounter Plan of Treatment Upcoming Encounters Date Type Department Care Team (Late st Contact Info) Description 12/01/2024 10:40 AM EDT Office Visit [facility] [address] [place] [address] Rubens Tim DO [address] [facility] [place] [address] 02/11/2025 9:00 AM EST Office Visit [facility] [address] [place] [phone] Cas Galicia MD [address] [place] [address] 07/08/2025 8:20 AM EDT Office Visit [facility] [address] [place] [address] Jodi Holden, PONCE [address] [place] [address] documented as of this encounter Visit Diagnoses Not on filedocumented in this encounter Care Teams Apiculture Teacher Relationship Specialty Start Date End Date Cas Galicia MD [address] [place] [address] PCP - General Family Medicine 04/09/23 Cas Galicia MD [address] [place] [address] PCP - [place] [employer] 11/06/23 documented as of this encounter
--- OUTSIDE RECORDS SUMMARY | 2024-09-29 12:43 | XMS_ITS | Encounter Summary ---
Author Organization [facility] Address [address] [place] [address] Care Team Providers Care Ship Mate Name Role Phone Cas Galicia MD Primary Care Provider [phone] Cas Galicia MD Unavailable Encounter Details Date Type Department Care Team (Late st Contact Info) Description 10/09/2023 Clinisync Result Encounter [facility] External Department Unsolicited [...] week 04/08/2023 How often do you attend [facility] or mosque services? Patient declined 04/08/2023 Do you belong to any clubs o r organizations such as baptist groups, unions, fraternal or athletic groups, or [...] medical care, and heating? Somewhat hard 04/08/2023 [facility] - Occupational Stress [...] a jail (including now)? Patient declined 04/08/2023 Comments No [...] EDT Office Visit [facility] [address] [place] [phone] Rubens Tim DO [address] [facility] [place] [address] 02/11/2025 9:00 AM EST Office Visit [facility] [address] [place] [address] Cas Galicia MD [address] [place] [address] 07/08/2025 8:20 AM EDT Office Visit [facility] [address] [place] [address] Jodi Holden, PA [address] [place], [place] [phone] documented as of this encounter Procedures Procedure Name Priority Date/Time Associated Diagnosis Comments CT ABDOMEN/PELVIS WO CONT 10/09/2023 3:39 PM EDT documented in this encounter Results * CT ABDOMEN/PELVIS WO CONT (10/09/2023 3:39 PM EDT) Anatomical Region Laterality Modality Radiographic Naina ging 10/09/2023 3:39 PM EDT Narrative 10/09/2023 3:42 PM EDT The [address] [address] [address] Scan Report Signed Patient: VIJAYA TRAN MR#: [id number] : 1985 Acct:[id number] Age/Sex: 37 / F ADM Date: 10/09/23 Loc: CT Attending Dr: Selma Choe R PROGRAMMER Ordering Physician: Selma Choe NP Date of Service: 10/09/23 Procedure(s): CT abdomen pelvis wo con Accession Number(s): [id number] cc: Cas Galicia M.D. The [place] [id number] Patient Name: VIJAYA TRAN MRN: [id number] date: 1985 Sex: F Assigned Patient Location: CT Current Patient Location: CT Accession/Order Number: [id number] Exam Date: 10/09/2023 14:16 Report Date: 10/09/2023 15:39 At the request of: SELMA CHOE Procedure: CT abdomen pelvis wo con EXAMINATION: CT abdomen pelvis wo con, 10/09/2023 2:16 PM EDT HISTORY: Kidney Stone, Gross Hematuria, Ureteral Stricture COMPARISON: None. TECHNIQUE: CT scan of the abdomen and pelvis was performed without IV contrast. CT dose reduction technique was used, including Automated Exposure Control. FINDINGS: LOWER CHEST: The visualized lungs are clear. LIVER: There is hepatomegaly and diffuse hepatic steatosis. GALLBLADDER AND BILIARY SYSTEM: Status post cholecystectomy. No intra or extrahepatic biliary ductal dilatation. SPLEEN: Unremarkable. PANCREAS: Unremarkable. ADRENAL GLANDS: Unremarkable. KIDNEYS AND URETERS: No nephrolithiasis or hydronephrosis. No ureteral calculus. BLADDER: Under distended. GASTROINTESTINAL TRACT: No evidence of bowel obstruction or colitis. Moderate amount of stool in the colon. Status post appendectomy. VASCULATURE: The abdominal aorta is normal in caliber. RETROPERITONEUM: No lymphadenopathy. PERITONEUM/MESENTERY: No abdominal ascites. No free air. PELVIS: There is a 4.2 x 3.4 cm right ovarian cyst. No pelvic ascites or lymphadenopathy. BODY WALL: Small fat-containing umbilical hernia. BONES: No acute abnormality. CT/CT abdomen pelvis wo con IMPRESSION: 1. Right ovarian cyst measuring 4.2 cm. 2. Hepatomegaly and diffuse hepatic steatosis. 3. Small fat-containing umbilical hernia. Electronically authenticated by: DANO HILL Date: 10/09/2023 15:39 Dictated By: Dano Hill M.D. Signed By: 10/09/23 1542 DD/ 1539 TD/TT: Wastewater Treatment Supervisor: Procedure Note Radiology, Radiologist, MD - 10/09/[address] [address] [address] Scan Report Signed Patient: VIJAYA TRAN SMR#: [id number] : 1985Acct:[id number] Age/Sex: 37 / FADM Date: 10/09/23 Loc: CT Attending Dr: Selma Choe NP Ordering Physician: Selma Choe NP Date of Service: 10/09/23 Procedure(s): CT abdomen pelvis wo con Accession Number(s): [id number] cc: Cas Galicia M.D. The [address] [address] Patient Name: VIJAYA TRAN MRN: [id number] date: 1985 Sex: F Assigned Patient Location: CT Current Patient Location: CT Accession/Order Number: [id number] Exam Date: 10/09/2023 14:16 Report Date: 10/09/2023 15:39 At the request of: SELMA CHOE Procedure: CT abdomen pelvis wo con EXAMINATION: CT abdomen pelvis wo con, 10/09/2023 2:16 PM EDT HISTORY: Kidney Stone, Gross Hematuria, Ureteral Stricture COMPARISON: None. TECHNIQUE: CT scan of the abdomen and pelvis was performed without IV contrast. CT dose reduction technique was used, including Automated ExposureControl. FINDINGS: LOWER CHEST: The visualized lungs are clear. LIVER: There is hepatomegaly and diffuse hepatic steatosis. GALLBLADDER AND BILIARY SYSTEM: Status post cholecystectomy. No intra or extrahepatic biliary ductal dilatation. SPLEEN: Unremarkable. PANCREAS: Unremarkable. ADRENAL GLANDS: Unremarkable. KIDNEYS AND URETERS: No nephrolithiasis or hydronephrosis. No ureteral calculus. BLADDER: Under distended. GASTROINTESTINAL TRACT: No evidence of bowel obstruction or colitis.Moderate amount of stool in the colon. Status post appendectomy. VASCULATURE: The abdominal aorta is normal in caliber. RETROPERITONEUM: No lymphadenopathy. PERITONEUM/MESENTERY: No abdominal ascites. No free air. PELVIS: There is a 4.2 x 3.4 cm right ovarian cyst. No pelvic ascites or lymphadenopathy. BODY WALL: Small fat-containing umbilical hernia. BONES: No acute abnormality. CT/CT abdomen pelvis wo con IMPRESSION: 1. Right ovarian cyst measuring 4.2 cm. 2. Hepatomegaly and diffuse hepatic steatosis. 3. Small fat-containing umbilical hernia. Electronically authenticated by: DANO HILL Date: 10/09/2023 15:39 Dictated By: Dano Hill M.D. Signed By:10/09/23 1542 DD/ 1539 TD/TT: Wastewater Treatment Supervisor: us Generic External Data Provider IMG XR PROCEDURES Final Result documented in this encounter Visit Diagnoses Not on filedocumented in this encounter Care Teams Ship Mate Relationship Specialty Start Date End Date Cas Galicia MD [address] [place] [address] PCP - General Family Medicine 04/09/23 Cas Galicia MD [address] [place] [address] PCP - [employer] 11/06/23 documented as of this encounter
--- OUTSIDE RECORDS SUMMARY | 2024-09-29 12:43 | XMS_ITS | Encounter Summary ---
Author Organization [facility] Address [address] [place] [address] Care Team Providers Care Brine Process Operator Name Role Phone Cas Galicia MD Primary Care Provider [phone] Cas Galicia MD Unavailable Encounter Details Date Type Department Care Team (Late st Contact Info) Description 11/27/2023 Clinisync Result Encounter [facility] External Department Unsolicited [...] week 04/08/2023 How often do you attend [facility] or presybeterian services? Patient declined 04/08/2023 Do you belong to any clubs o r organizations such as yazdanism groups, unions, fraternal or athletic groups, or [...] medical care, and heating? Somewhat hard 04/08/2023 [facility] Occupat ional Health - Occupational Stress [...] place to sleep or slept in a long term (including now)? Patient declined 04/08/2023 Comments No [...] EDT Office Visit [facility] [address] [facility] [place] [address] Rodolfo Tim DO [address] [facility] [place] [address] 02/11/2025 9:00 AM EST Office Visit [facility] [address] [place] [address] Cas Galicia MD [address] [place] [address] 07/08/2025 8:20 AM EDT Office Visit [facility] [address] [place] [address] Jodi Holden, PONCE [address] [place] [address] documented as of this encounter Procedures Procedure Name Priority Date/Time Associated Diagnosis Comments US PELVIS W/ TRANSVAGINAL 11/27/2023 10:36 AM EDT documented in this encounter Results * US PELVIS W/ TRANSVAGINAL (11/27/2023 10:36 AM EDT) Anatomical Region Laterality Modality Other 11/27/2023 10:3 6 AM EDT Narrative 11/27/2023 10:38 AM EDT The [address] [address] Ultrasound Report Signed Patient: VIJAYA TRAN MR#: [id number] : 1985 Acct:[id number] Age/Sex: 37 / F ADM Date: 11/26/23 Loc: US Attending Dr: Rodolfo Tim D.O. Ordering Physician: Rodolfo Tim D.O. Date of Service: 11/26/23 Procedure(s): US pelvis w/ transvaginal Accession Number(s): [id number] cc: Rodolfo Tim D.O.; Cas Galicia M.D. The [place] [id number] Patient Name: VIJAYA TRAN MRN: [id number] date: 1985 Sex: F Assigned Patient Location: US Current Patient Location: Accession/Order Number: [id number] Exam Date: 11/26/2023 07:40 Report Date: 11/27/2023 10:36 At the request of: RODOLFO TIM Procedure: US pelvis w/ transvaginal EXAMINATION: US pelvis w/ transvaginal HISTORY: Polycystic Ovarian Syndrome E28.2 COMPARISON: 08/30/2023 FINDINGS: The uterus is surgically absent The right ovary measures 2.3 x 2.5 x 2.3 cm. Normal color Doppler flow. Area of anechoic echogenicity with some low-level echoes measuring 1.7 x 2.7 x 1.9 cm, no color flow. I favor a cyst The left ovary measures 4.0 x 3.6 x 2.8 cm. Normal color Doppler flow. Multiple areas of anechoic echogenicity measuring up to 1.5 cm, cyst versus follicle US/US pelvis w/ transvaginal IMPRESSION: Bilateral ovarian cysts, not meeting criteria for polycystic ovarian morphology Electronically authenticated by: BELÉN ANDRADE Date: 11/27/2023 10:36 Dictated By: Belén Andrade M.D. Signed By: 11/27/23 1038 DD/ 1036 TD/TT: Care Information Associate: Procedure Note Radiology, Radiologist, MD - 11/27/2023 [place] [address] Ultrasound Report Signed Patient: VIJAYA TRAN SMR#: [id number] : 1985Acct:[id number] Age/Sex: 37 / FADM Date: 11/26/23 Loc: US Attending Dr: Rodolfo Tim D.O. Ordering Physician: Rodolfo Tim D.O. Date of Service: 11/26/23 Procedure(s): US pelvis w/ transvaginal Accession Number(s): [id number] cc: Rodolfo Tim D.O.; Cas Galicia M.D. [address] [address] Patient Name: VIJAYA TRAN MRN: [id number] date: 1985 Sex: F Assigned Patient Location: Current Patient Location: Accession/Order Number: [id number] Exam Date: 11/26/2023 07:40 Report Date: 11/27/2023 10:36 At the request of: RODOLFO TIM Procedure: US pelvis w/ transvaginal EXAMINATION: US pelvis w/ transvaginal HISTORY: Polycystic Ovarian Syndrome E28.2 COMPARISON: 08/30/2023 FINDINGS: The uterus is surgically absent The right ovary measures 2.3 x 2.5 x 2.3 cm. Normal color Doppler flow.Area of anechoic echogenicity with some low-level echoes measuring 1.7 x 2.7 x 1.9cm, no color flow. I favor a cyst The left ovary measures 4.0 x 3.6 x 2.8 cm. Normal color Doppler flow. Multiple areas of anechoic echogenicity measuring up to 1.5 cm, cyst versusfollicle US/US pelvis w/ transvaginal IMPRESSION: Bilateral ovarian cysts, not meeting criteria for polycystic ovarian morphology Electronically authenticated by: BELÉN ANDRADE Date: 11/27/2023 10:36 Dictated By: Belén Andrade M.D. Signed By:11/27/23 1038 DD/ 1036 TD/TT: Care Information Associate: us Generic External Data Provider [facility] Final Result documented in this encounter Visit Diagnoses Not on filedocumented in this encounter Care Teams Brine Process Operator Relationship Specialty Start Date End Date Cas Galicia MD [address] [place] [address] PCP - General Family Medicine 04/09/23 Cas Galicia MD [address] [place] [address] PCP - Davie Goncalves 11/06/23 documented as of this encounter
--- OUTSIDE RECORDS SUMMARY | 2024-09-29 12:43 | XMS_ITS | Encounter Summary ---
Author Organization [facility] Address [address] [place] [address] Care Team Providers Care Animal Pathology Teacher Name Role Phone Cas Galicia MD Primary Care Provider [phone] Sai Perez MD Unavailable [phone] Rubens Tim DO Unavailable [phone] Source Comments In the event this information is protected by the Federal Confidentiality of Alcohol and Drug AbusePatient Records regulations: The Federal rules restrict any use of the information to criminally investigate or prosecute any alcohol or drug abuse patient.[facility] Encounter Details Date Type Department Care Team (Late st Contact Info) Description 12/19/2021 Get Medical Advice [facility] [address] [place], [place] [phone] Dayanna Sotomayor, [place] [address] [place], [place] [phone] Genetic testing Social History Tobacco Use Types Packs/Day [...] N ot on file 08/15/2021 Data from: https://[email or web address].medicine.[email or web address]/. Last address used for calculation [...] AM EDT Office Visit [facility] [address] [place] [address] [place] [address] 1 year follow up 09/30/2024 9:30 AM EDT Visit (SP) Office Hematology/Oncology [address] [place] [address] Shweta Masters APRN.[facility] [address] [place] [address] 1 year follow up documented as of this encounter Visit Diagnoses Not on filedocumented in this encounter Care Teams Animal Pathology Teacher Relationship Specialty Start Date End Date Cas Galicia MD PCP - General Family Medicine 02/20/14 Sai Perez MD [address] [place] [address] Primary Staff Physician Cardiology 07/21/21 Rubens Tim DO [address] [place] [address] [place] [address] Referring Intercell Connector Placer 08/05/21 documented as of this encounter
--- OUTSIDE RECORDS SUMMARY | 2024-09-29 12:43 | XMS_ITS | Encounter Summary ---
Author Organization [facility] Address [address] [place] [address] Care Team Providers Care Modeling Instructor Name Role Phone Cas Galicia MD Primary Care Provider [phone] Cas Galicia MD Unavailable Cas Galicia MD Unavailable Encounter Details Date Type Department Care Team (Late st Contact Info) Description 08/31/2023 Clinisync Result Encounter [facility] External Department Unsolicited [...] How often do you attend chur or episcopalian services? Patient declined 04/08/2023 Do you belong to any clubs o r organizations such as pentecostalism groups, unions, fraternal or athletic groups, or [...] medical care, and heating? Somewhat hard 04/08/2023 [facility] - Occupational Stress Questionnaire Answer Date Recorded [...] term (including now)? Patient declined 04/08/2023 Comments Unknown [...] EDT Office Visit [facility] [address] [place] [address] Rubens Tim DO [address] [facility] [place] [address] 02/11/2025 9:00 AM EST Office Visit [facility] [address] [place] [address] Cas Galicia MD [address] [place] [address] 07/08/2025 8:20 AM EDT Office Visit [facility] [address] [place] [address] Jodi Holden, PONCE [address] [place], [place] [phone] documented as of this encounter Procedures Procedure Name Priority Date/Time Associated Diagnosis Comments MM TOMOSYNTHESIS DIAGNOSTIC BI 08/31/2023 1:39 PM EDT documented in this encounter Results * MM TOMOSYNTHESIS DIAGNOSTIC BI (08/31/2023 1:39 PM EDT) Anatomical Region Laterality Modality Other 08/31/2023 1:39 PM EDT Narrative 08/31/2023 1:40 PM EDT The [address] [address] Mammography Report Signed Patient: VIJAYA TRAN MR#: [id number] : 1985 Acct:[id number] Age/Sex: 37 / F ADM Date: 08/31/23 Loc: MAMMO Attending Dr: Rubens Tim D.O. Ordering Physician: Rubens Tim D.O. Results: Date of Service: 08/31/23 Follow Up: Procedure(s): MM tomosynthesis diagnostic BI Accession Number(s): [id number] cc: Rubens Tim D.O.; aCs Galicia M.D. Patient Name: VIJAYA TRAN MR#: [id number] : 1985 Exam Date: 08/31/2023 Ordering Doctor: DR Rubens Tim . RADIOLOGY REPORT PROCEDURE: MM TOMOSYNTHESIS DIAGNOSTIC BI, 08/31/2023, 12:52 US BREAST BI LIMITED, 08/31/2023, 13:08 COMPARISON: US BREAST LARS LIMITED, 10/19/2021. MG MAMM DIAGNOSTIC 3D LARS CAD, 10/19/2021. INDICATIONS: Left breast lump Calculator Name NCI Breast Cancer Risk Assessment Tool 5 Year Breast Cancer Risk 0.50% Lifetime Breast Cancer Risk 9.90% Personal Breast Cancer No Personal Ovarian Cancer No Treatments None Family Cancers Mother with cervical cancer at age 50. LOCATION: [facility] BREAST COMPOSITION: There are scattered areas of fibroglandular density. FINDINGS: DIAGNOSTIC CATEGORY 2--BENIGN FINDING: RIGHT BREAST: Skin surface marker overlying the lower-inner quadrant with no appreciable mass. No abnormal ultrasound findings within this area. LEFT BREAST: Skin surface markers overlying the upper outer quadrant with there appears to be a benign lymph node. Similar findings seen on today's ultrasound study. Skin surface marker overlying the lower-inner quadrant with no appreciable mammographic or ultrasound findings. RECOMMENDATIONS: ROUTINE MAMMOGRAM AND CLINICAL EVALUATION IN 12 MONTHS. PLEASE NOTE: A NORMAL MAMMOGRAM DOES NOT EXCLUDE THE POSSIBILITY OF BREAST CANCER. A CLINICALLY SUSPICIOUS PALPABLE LUMP SHOULD BE BIOPSIED. Dictated by: Jonas Humphrey M.D. on 08/31/2023 at 13:27 Approved by: Jonas Humphrey M.D. on 08/31/2023 at 13:39 Dictated By: Jonas Humphrey M.D. Signed By: 08/31/23 1349 DD/ 1339 TD/TT: Enforcement Officer: Procedure Note Radiology, Radiologist, - 08/31/[address] [address] Mammography Report Signed Patient: VIJAYA TRAN SMR#: [id number] : 1985Acct:[id number] Age/Sex: 37 / FADM Date: 08/31/23 Loc: MAMMO Attending Dr: Rubens Tim D.O. Ordering Physician: Rubens Tim D.O.Results: Date of Service: 08/31/23Follow Up: Procedure(s): MM tomosynthesis diagnostic BI Accession Number(s): [id number] cc: Rubens Tim D.O.; Cas Galicia M.D. Patient Name: VIJAYA TRAN MR#: [id number] : 1985 Exam Date: 08/31/2023 Ordering Doctor: DR Rubens Tim . RADIOLOGY REPORT PROCEDURE: MM TOMOSYNTHESIS DIAGNOSTIC BI, 08/31/2023, 12:52 US BREAST BI LIMITED, 08/31/2023, 13:08 COMPARISON: US BREAST LARS LIMITED, 10/19/2021. MG MAMM DIAGNOSTIC 3DBIL CAD, 10/19/2021. INDICATIONS: Left breast lump Calculator Name NCI Breast Cancer Risk Assessment Tool 5 Year Breast Cancer Risk 0.50% Lifetime Breast Cancer Risk 9.90% Personal Breast Cancer No Personal Ovarian Cancer No Treatments None Family Cancers Mother with cervical cancer at age 50. LOCATION: [facility] BREAST COMPOSITION: There are scattered areas of fibroglandulardensity. FINDINGS: DIAGNOSTIC CATEGORY 2--BENIGN FINDING: RIGHT BREAST: Skin surface marker overlying the lower-inner quadrant withno appreciable mass. No abnormal ultrasound findings within this area. LEFT BREAST: Skin surface markers overlying the upper outer quadrant with there appears to be a benign lymph node. Similar findings seen on today's ultrasound study. Skin surface marker overlying the lower-inner quadrantwith no appreciable mammographic or ultrasound findings. RECOMMENDATIONS: ROUTINE MAMMOGRAM AND CLINICAL EVALUATION IN 12 MONTHS. PLEASE NOTE: A NORMAL MAMMOGRAM DOES NOT EXCLUDE THE POSSIBILITY OFBREAST CANCER. A CLINICALLY SUSPICIOUS PALPABLE LUMP SHOULD BE BIOPSIED. Dictated by: Jonas Humphrey M.D. on 08/31/2023 at 13:27 Approved by: Jonas Humphrey M.D. on 08/31/2023 at 13:39 Dictated By: Jonas Humphrey M.D. Signed By:08/31/23 1340 DD/ 1339 TD/TT: Enforcement Officer: us Generic External Data Provider [facility] Final Result documented in this encounter Visit Diagnoses Not on filedocumented in this encounter Care Teams Modeling Instructor Relationship Specialty Start Date End Date Cas Galicia MD [address] [place] [address] PCP - General Family Medicine 04/09/23 Cas Galicia MD [address] [place] [address] PCP - [employer] 06/06/23 Cas Galicia MD [address] [place] [address] PCP - [employer] 11/06/23 documented as of this encounter
--- OUTSIDE RECORDS SUMMARY | 2024-09-29 12:43 | XMS_ITS | Encounter Summary ---
Author Organization [facility] Address [address] [place] [address] Care Team Providers Care Wafer Fabrication Technician Name Role Phone Cas Galicia MD Primary Care Provider [phone] Cas Galicia MD Unavailable Cas Galicia MD Unavailable Encounter Details Date Type Department Care Team (Late st Contact Info) Description 08/30/2023 Clinisync Result Encounter [facility] External Department Unsolicited [...] How often do you attend chur or cheondoism services? Patient declined 04/08/2023 Do you belong to any clubs o r organizations such as congregational groups, unions, fraternal or athletic groups, or [...] medical care, and heating? Somewhat hard 04/08/2023 [facility] Occupat ional [facility] - Occupational Stress Questionnaire Answer Date [...] place to sleep or slept in a fpc (including now)? Patient declined 04/08/2023 Comments Unknown [...] [address] [address] Rodolfo Tim DO [address] [facility] [place] [address] 02/11/2025 9:00 AM EST Office Visit [facility] [address] [place] [address] Cas Galicia MD [address] [place] [address] 07/08/2025 8:20 AM EDT Office Visit [facility] [address] [place] [address] Jodi Holden, PONCE [address] [place], [place] [id number] documented as of this encounter Procedures Procedure Name Priority Date/Time Associated Diagnosis Comments US PELVIS W/ TRANSVAGINAL 08/30/2023 10:22 AM EDT documented in this encounter Results * US PELVIS W/ TRANSVAGINAL (08/30/2023 10:22 AM EDT) Anatomical Region Laterality Modality Other 08/30/2023 10:2 2 AM EDT Narrative 08/30/2023 10:25 AM EDT The [address] [address] Ultrasound Report Signed Patient: VIJAYA TRAN MR#: [id number] : 1985 Acct:[id number] Age/Sex: 37 / F ADM Date: 08/30/23 Loc: US Attending Dr: Rodolfo Tim D.O. Ordering Physician: Rodolfo Tim D.O. Date of Service: 08/30/23 Procedure(s): US pelvis w/ transvaginal Accession Number(s): [id number] cc: Rodolfo Tim D.O.; Cas Galicia M.D. The [place] [id number] Patient Name: VIJAYA TRAN MRN: [id number] date: 1985 Sex: F Assigned Patient Location: US Current Patient Location: US Accession/Order Number: [id number] Exam Date: 08/30/2023 08:55 Report Date: 08/30/2023 10:22 At the request of: RODOLFO TIM Procedure: US pelvis w/ transvaginal EXAMINATION: US pelvis w/ transvaginal HISTORY: Hormone imbalance E34.9 COMPARISON: No relevant comparison available. FINDINGS: Transabdominal and transvaginal images The uterus is surgically absent The right ovary measures 3.4 x 2.6 x 1.7 cm. Normal color and Doppler flow. The left ovary measures 3.6 x 2.1 x 2.2 cm. Normal color and Doppler flow. Normal follicles US/US pelvis w/ transvaginal IMPRESSION: Unremarkable exam Electronically authenticated by: BELÉN ANDRADE Date: 08/30/2023 10:22 Dictated By: Belén Andrade M.D. Signed By: 08/30/23 1025 DD/ 1022 TD/TT: Share Dairy Farmer: Procedure Note Radiology, Radiologist, MD - 08/30/2023 [place] [address] Ultrasound Report Signed Patient: VIJAYA TRAN SMR#: [id number] : 1985Acct:[id number] Age/Sex: 37 / FADM Date: 08/30/23 Loc: US Attending Dr: Rodolfo Tim D.O. Ordering Physician: Rodolfo Tim D.O. Date of Service: 08/30/23 Procedure(s): US pelvis w/ transvaginal Accession Number(s): [id number] cc: Rodolfo Tim D.O.; Cas Galicia M.D. The [place] [id number] Patient Name: VIJAYA TRAN MRN: [id number] date: 1985 Sex: F Assigned Patient Location: US Current Patient Location: US Accession/Order Number: [id number] Exam Date: 08/30/2023 08:55 Report Date: 08/30/2023 10:22 At the request of: RODOLFO TIM Procedure: US pelvis w/ transvaginal EXAMINATION: US pelvis w/ transvaginal HISTORY: Hormone imbalance E34.9 COMPARISON: No relevant comparison available. FINDINGS: Transabdominal and transvaginal images The uterus is surgically absent The right ovary measures 3.4 x 2.6 x 1.7 cm. Normal color and Dopplerflow. The left ovary measures 3.6 x 2.1 x 2.2 cm. Normal color and Doppler flow. Normal follicles US/US pelvis w/ transvaginal IMPRESSION: Unremarkable exam Electronically authenticated by: BELÉN ANDRADE Date: 08/30/2023 10:22 Dictated By: Belén Andrade M.D. Signed By:08/30/23 1025 DD/ 1022 TD/TT: Share Dairy Farmer: us Generic External Data Provider [facility] Final Result documented in this encounter Visit Diagnoses Not on filedocumented in this encounter Care Teams Wafer Fabrication Technician Relationship Specialty Start Date End Date Cas Galicia MD [address] [place] [address] PCP - General Family Medicine 04/09/23 Cas Galicia MD [address] [place] [address] PCP - [place] [employer] 06/06/23 Cas Galicia MD [address] [place] [address] JURGEN - [place] [employer] 11/06/23 documented as of this encounter
--- OUTSIDE RECORDS SUMMARY | 2024-09-29 12:43 | XMS_ITS | Encounter Summary ---
Author Organization [facility] Address [address] [place] [address] Care Team Providers Care Orthotist Name Role Phone Csa Galicia MD Primary Care Provider [phone] Cas Galicia MD Unavailable Cas Galicia MD Unavailable Encounter Details Date Type Department Care Team (Late st Contact Info) Description 05/10/2023 Clinisync Result Encounter [facility] External Department Unsolicited [...] How often do you attend chur or spiritism services? Patient declined 04/08/2023 Do you belong to any clubs o r organizations such as zoroastrian groups, unions, fraternal or athletic groups, or [...] medical care, and heating? Somewhat hard 04/08/2023 [facility] Occupat ional [facility] - Occupational Stress Questionnaire Answer [...] nursing home (including now)? Patient declined 04/08/2023 Comments Unknown [...] Office Visit [facility] [address] [place] [address] Rubens Tim DO [address] [facility] [place] [address] 02/11/2025 9:00 AM EST Office Visit [facility] [address] [place] [address] Cas Galicia MD [address] [place] [address] 07/08/2025 8:20 AM EDT Office Visit [facility] [address] [place] [address] Jodi Holden, PONCE [address] [place], [place] [phone] documented as of this encounter Procedures Procedure Name Priority Date/Time Associated Diagnosis Comments US THYROID 05/10/2023 12:35 PM EDT documented in this encounter Results * US thyroid (05/10/2023 12:35 PM EDT) Anatomical Region Laterality Modality Head, Neck Ultrasound 05/10/2023 12:3 5 PM EDT Narrative 05/10/2023 12:37 PM EDT The [address] [address] Ultrasound Report Signed Patient: VIJAYA RTAN MR#: [id number] : 1985 Acct:[id number] Age/Sex: 37 / F ADM Date: 05/10/23 Loc: RAD Attending Dr: Reji Best NP Ordering Physician: Reji Best NP Date of Service: 05/10/23 Procedure(s): US thyroid Accession Number(s): [id number] cc: Cas Galicia M.D.; Reji Best NP The [address] [address] Patient Name: VIJAYA TRAN MRN: [id number] date: 1985 Sex: F Assigned Patient Location: RAD Current Patient Location: RAD Accession/Order Number: [id number] Exam Date: 05/10/2023 09:04 Report Date: 05/10/2023 12:35 At the request of: REJI BEST Procedure: US thyroid EXAMINATION: US thyroid 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 FINDINGS: RIGHT LOBE: Small lobe with slightly heterogeneous echotexture. No increased vascularity or suspicious nodules. Lobe size: 3.1 x 1.1 x 0.5 cm LEFT LOBE: Small lobe with slightly heterogeneous echotexture. No increased vascularity or suspicious nodules. Lobe size: 3.0 x 0.9 x 0.9 cm ISTHMUS: Normal thickness. Slightly heterogeneous echotexture. Thickness: 2 mm US/US thyroid IMPRESSION: 1. Small thyroid gland similar to prior study. No hypervascularity or suspicious nodules. Electronically authenticated by: JONAS HUMPHREY Date: 05/10/2023 12:35 Dictated By: Jonas Humphrey M.D. Signed By: 05/10/23 1237 DD/ 1235 TD/TT: Business Applications Analyst: Procedure Note Radiology, Radiologist, MD - 05/10/2023 [place] [address] Ultrasound Report Signed Patient: VIJAYA TRAN SMR#: [id number] : 1985Acct:[id number] Age/Sex: 37 / FADM Date: 05/10/23 Loc: RAD Attending Dr: Reji Best NP Ordering Physician: Reji Best NP Date of Service: 05/10/23 Procedure(s): US thyroid Accession Number(s): [id number] cc: Cas Galicia M.D.; Reji Best NP The [place] [id number] Patient Name: VIJAYA TRAN MRN: [id number] date: 1985 Sex: F Assigned Patient Location: RAD Current Patient Location: RAD Accession/Order Number: [id number] Exam Date: 05/10/2023 09:04 Report Date: 05/10/2023 12:35 At the request of: REJI BEST Procedure: US thyroid EXAMINATION: US thyroid 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 FINDINGS: RIGHT LOBE: Small lobe with slightly heterogeneous echotexture. Noincreased vascularity or suspicious nodules. Lobe size: 3.1 x 1.1 x 0.5 cm LEFT LOBE: Small lobe with slightly heterogeneous echotexture. Noincreased vascularity or suspicious nodules. Lobe size: 3.0 x 0.9 x 0.9 cm ISTHMUS: Normal thickness. Slightly heterogeneous echotexture. Thickness: 2 mm US/US thyroid IMPRESSION: 1. Small thyroid gland similar to prior study. No hypervascularity or suspicious nodules. Electronically authenticated by: JONAS HUMPHREY Date: 05/10/2023 12:35 Dictated By: Jonas Humphrey M.D. Signed By:05/10/23 1237 DD/ 1235 TD/TT: Business Applications Analyst: us Generic External Data Provider IMG US PROCEDURES Final Result documented in this encounter Visit Diagnoses Not on filedocumented in this encounter Care Teams Orthotist Relationship Specialty Start Date End Date Cas Galicia MD [address] [place] [address] PCP - General Family Medicine 04/09/23 Cas Galicia MD [address] [place] [address] PCP - [facility] 06/06/23 Cas Galicia MD [address] [place] [address] PCP - [place] [employer] 11/06/23 documented as of this encounter
--- OUTSIDE RECORDS SUMMARY | 2024-09-29 12:43 | XMS_ITS | Encounter Summary ---
Author Organization [facility] Address [address] [place] [address] Care Team Providers Care Bar Pointer Name Role Phone Cas Galicia MD Primary Care Provider [phone] Cas Galicia MD Unavailable Cas Galicia MD [...] How often do you attend chur or advent services? Patient declined 04/08/2023 Do you belong to any clubs o r organizations such as samaritan groups, unions, fraternal or athletic groups, or [...] care, and heating? Somewhat hard 04/08/2023 [facility] of Occupat ional [facility] - Occupational Stress Questionnaire Answer Date [...] place to sleep or slept in a chcf (including now)? Patient declined 04/08/2023 Comments Unknown [...] EDT Office Visit [facility] [address] [place] [address] Rubens Tim DO [address] [facility] [place] [address] 02/11/2025 9:00 AM EST Office Visit [facility] [address] [place] [address] Cas Galicia MD [address] [place] [address] 07/08/2025 8:20 AM EDT Office Visit [facility] [address] [place] [address] Jodi Holden, PONCE [address] [place], [place] [address] documented as of this encounter Procedures Procedure Name Priority Date/Time Associated Diagnosis Comments US BREAST BI LIMITED 08/31/2023 1:39 PM EDT documented in this encounter Results * US BREAST BI LIMITED (08/31/2023 1:39 PM EDT) Anatomical Region Laterality Modality Other 08/31/2023 1:39 PM EDT Narrative 08/31/2023 1:40 PM EDT The [address] [address] Ultrasound Report Signed Patient: VIJAYA TRAN MR#: [id number] : 1985 Acct:[id number] Age/Sex: 37 / F ADM Date: 08/31/23 Loc: MAMMO Attending Dr: Rubens Tim D.O. Ordering Physician: Glenroy,Rubens D.O. Date of Service: 08/31/23 Procedure(s): US breast BI limited Accession Number(s): [id number] cc: Rubens Tim D.O.; Cas Galicia M.D. Patient Name: VIJAYA TRAN MR#: [id number] : 1985 Exam Date: 08/31/2023 Ordering Doctor: [...] cervical cancer at age 48. LOCATION: [facility] BREAST COMPOSITION: There are scattered areas of [...] By: Jonas Humphrey M.D. Signed By: 08/31/23 1344 DD/ 1339 TD/TT: Mayonnaise Mixer: Procedure Note Radiology, Radiologist, - 08/31/2023 [place] [address] Ultrasound Report Signed Patient: VIJAYA TRAN SMR#: [id number] : 1985Acct:[id number] Age/Sex: 37 / FADM Date: 08/31/23 Loc: MAMMO Attending Dr: Rubens Tim D.O. Ordering Physician: Rubens Tim D.O. Date of Service: 08/31/23 Procedure(s): US breast BI limited Accession Number(s): [id number] cc: Rubens Tim D.O.; Cas Galicia M.D. Patient Name: VIJAYA TRAN MR#: [id number] : 1985 Exam Date: 08/31/2023 Ordering Doctor: [...] cervical cancer at age 48. LOCATION: [facility] BREAST COMPOSITION: There are scattered areas of [...] M.D. Signed By:08/31/23 1340 DD/ 1339 TD/TT: Mayonnaise Mixer: us Generic External Data Provider [facility] Final Result documented in this encounter Visit Diagnoses Not on filedocumented in this encounter Care Teams Bar Pointer Relationship Specialty Start Date End Date Cas Galicia MD [address] [place] [address] PCP - General Family Medicine 04/09/23 Cas Galicia MD [address] [place] [address] PCP - [place] [employer] 06/06/23 Cas Galicia MD [address] [place] [address] PCP - [place] [employer] 11/06/23 documented as of this encounter
--- OUTSIDE RECORDS SUMMARY | 2024-09-29 12:44 | XMS_ITS | Encounter Summary ---
Author Organization [facility] Address [address] [place] [place] [address] Care Team Providers Care Millwork Estimator Name Role Phone Cas Galicia MD Primary Care Provider [phone] Cas Galicia MD Unavailable Encounter Details Date Type Department Care Team (Late st Contact Info) Description 04/24/2024 Abstract [facility] [address] [place] [address] Kassie Coffman LPN Social History Tobacco Use Types Packs/Day Years [...] How often do you attend chur or restorationism services? Patient declined 04/08/2023 Do you belong to any clubs o r organizations such as gnosticism groups, unions, fraternal or athletic groups, or [...] medical care, and heating? Somewhat hard 04/08/2023 [facility] Occupat ional Health - Occupational [...] place to sleep or slept in a fdc (including now)? Patient declined 04/08/2023 Comments No [...] Office Visit [facility] [address] [place] [address] Rubens Tim DO [address] [facility] [place] [address] 02/11/2025 9:00 AM EST Office Visit [facility] [address] [place] [address] Cas Galicia MD [address] [place] [address] 07/08/2025 8:20 AM EDT Office Visit [facility] [address] [place] [address] Jodi Holden, PA [address] [place], [place] [address] documented as of this encounter Visit Diagnoses Not on filedocumented in this encounter Care Teams Millwork Estimator Relationship Specialty Start Date End Date Cas Galicia MD [address] [place] [address] PCP - General Family Medicine 04/09/23 Cas Galicia MD [address] [place] [address] PCP - [place] [employer] 11/06/23 documented as of this encounter
--- OUTSIDE RECORDS SUMMARY | 2024-09-29 12:44 | XMS_ITS | Encounter Summary ---
Author Organization [facility] Address [address] [place] [address] Care Team Providers Care Solar Resource Assessor Name Role Phone Cas Galicia MD Primary Care Provider [phone] Sai Perez MD Unavailable [phone] Rubens Tim DO Unavailable [phone] Source Comments In the event this information is protected by the Federal Confidentiality of Alcohol and Drug AbusePatient Records regulations: The Federal rules restrict any use of the information to criminally investigate or prosecute any alcohol or drug abuse patient.[facility] Encounter Details Date Type Department Care Team (Late st Contact Info) Description 06/14/2021 Get Medical Advice Endocrinology [address] [place] [address] Jackelyn Marques MD [address] [place] [address] Labs Social History Tobacco Use Types Packs/Day Years Used Date Smoking Tobacco: Never Smokeless Tobacco: Never Alcohol Use Standard Drinks/Week Comments Yes 0 (1 standard drink = 0.6 oz pur e alcohol) rarely uses alcohol PHQ-2 Answer Date Recorded PHQ-2 score 2 05/19/2021 Area Deprivation Index Answer Date Aramis rded National Score (1-100), lower number is lower ri sk Not on file 09/06/2020 State Score (1-10), lower number is lower risk N ot on file 09/06/2020 Data from: https://www.neighborhoodatlas.medicine.[facility]/. Last address used for calculation Not on file 09/06/2020 Comments No Sex and Gender Information Value [...] suspected to have Coronavirus/COVID-19? No / Unsure 06/16/2021 10:44 AM EDT documented as of this encounter Functional [...] Description 09/30/2024 9:15 AM EDT Office Visit [facility] [address] [address] 1 year follow up 09/30/2024 9:30 AM EDT Visit (SP) Office Hematology/Oncology [address] [place] [address] Shweta Masters APRN.GANG WORKER [address] [place] [address] 1 year follow up documented as of this encounter Visit Diagnoses Not on filedocumented in this encounter Care Teams Solar Resource Assessor Relationship Specialty Start Date End Date Cas Galicia MD PCP - General Family Medicine 02/20/14 Sai Perez MD [address] [place] [address] Primary Staff Physician Cardiology 07/21/21 Rubens Tim DO [address] [place] [address] [place] [address] Referring Php Web Developer 08/05/21 documented as of this encounter
--- OUTSIDE RECORDS SUMMARY | 2024-09-29 12:44 | XMS_ITS | Encounter Summary ---
Author Organization [facility] Address [id number] [address] [place] [address] Care Team Providers Care Linux Network Administrator Name Role Phone Cas Galicia MD Primary Care Provider [phone] Encounter Details Date Type Department Care Team (Late st Contact Info) Description 08/30/2021 Orders Only [facility] [address] [facility] [address] [place] [address] Sierra Hutchinson CMA Social History Tobacco Use Types Packs/Day Years Used Date Smoking Tobacco: Never Smokeless Tobacco: Never Alcohol Use Standard Drinks/Week Comments Never 0 (1 standard drink = 0.6 oz pur e alcohol) PHQ-2 Answer Date Recorded Total Score 17 05/18/2021 Childcare Answer Date Recorded Childcare Unknown 07/17/2018 Employment Answer Date Recorded Employment Unknown 07/17/2018 Purpose - Life Answer Date Recorded Purpose and direction in life Unknown Comments No Sex and Gender Information Value Date Recorded Sex Assigned at Female 05/14/2021 2:48 PM EDT Legal Sex Female 12:02 PM EDT Gender Identity Female 05/14/2021 2:48 PM EDT Sexual Orientation Straight 05/14/2021 2: 48 PM EDT COVID-19 Exposure Response Date Recorded In the last month, have you been in contact with someone who was confirmed or suspected to have Coronavirus / COVID-19? No / Unsure 08/18/2021 3:18 PM EDT documented as of this encounter Plan of Treatment Upcoming Encounters Date Type Department Care Team (Late st Contact Info) Description 11/24/2024 10:00 AM EDT Office Visit [facility] Department of [facility] [address] [address] Akila Ballard MD [address] [address] 12/26/2024 10:30 AM EST Office Visit [facility] Department of [facility] [address] [address] Stella Flowers [facility] [place] [address] [facility] [employer] [address] [address] documented as of this encounter Visit Diagnoses Not on filedocumented in this encounter Additional Health Concerns Assessment Noted Time PHQ-9 Depression Total Score: 17 022 10:30 AM EDT documented as of this encounter Care Teams Linux Network Administrator Relationship Specialty Start Date End Date Cas Galicia MD PCP - General Family Medicine 11/18/20 documented as of this encounter
--- OUTSIDE RECORDS SUMMARY | 2024-09-29 12:44 | XMS_ITS | Encounter Summary ---
Author Organization [facility] Address [address] [facility] [place] [address] Care Team Providers Care Telegraph Dispatcher Name Role Phone Cas Galicia MD Primary Care Provider + Reason for Referral * Specialty Diagnoses / Procedures Referred By Contac t Referred To Contact Akila Ballard MD Phone: tel: fax: Referral ID Status Reason Start Date Expiration Date Visits Re quested Visits Authorized Comments This order was created through External Result Entry Encounter Details Date Type Department Care Team (Late st Contact Info) Description 06/04/2020 Orders Only [facility] Part of [address] [address] Akila Ballard MD [address] [place] [address] Social History Tobacco Use Types Packs/Day Years Used Date Smoking Tobacco: Never Alcohol Use Standard Drinks/Week Comments No 0 (1 standard drink = 0.6 oz pur e alcohol) Comments No Sex and Gender Information Value [...] Description 03/19/2025 9:45 AM EST Office Visit [facility] Part of [facility] [address] [place] [address] David Mcclure MD [address] [facility] [address] [place] [address] KATELIN; 6 mth follow up with Samuel Vega documented as of this encounter Procedures Procedure Name Priority Date/Time Associated Diagnosis Comments AMB REFERRAL TO PULMONOLOGY Routine 06/04/2020 documented in this encounter Results * Ambulatory referral to Pulmonology (06/04/2020) us Akila Ballard MD OUTPATIENT REFERRAL ORDERABL ES Final Result documented in this encounter Visit Diagnoses Not on filedocumented in this encounter Additional Health Concerns Infection Onset Date Last Indicated Resolved Time COVID-19 (Rule Out) 01/07/2022 01/07/2022 01/08/20 22 1:10 AM EST COVID-19 (Rule Out) 01/08/2022 01/08/2022 01/10/20 22 6:32 PM EST COVID-19 (Rule Out) 12/18/2022 12/18/2022 12/19/19 23 5:08 PM EST documented as of this encounter Care Teams Telegraph Dispatcher Relationship Specialty Start Date End Date Cas Galicia MD PCP - General 09/04/11 documented as of this encounter
--- OUTSIDE RECORDS SUMMARY | 2024-09-29 12:44 | XMS_ITS | Encounter Summary ---
Author Organization [facility] Address [address] [place] [address] Care Team Providers Care General Office Worker Name Role Phone Cas Galicia MD Primary Care Provider [phone] Encounter Details Date Type Department Care Team (Late st Contact Info) Description 08/11/2024 Results Follow-Up [facility] [address] [place] [address] Cas Galicia MD [address] [place] [address] ALL CBC WITH AUTO DIFF, MLR HEMOGLOBIN A1C, TBH MICROALB CREAT RATIO RANDOM, Additional followed-up results: 4 Social History Tobacco Use Types Packs/Day Years [...] declined 08/08/2024 How often do you attend chur or temple services? Patient declined 08/08/2024 Do you belong to any clubs o r organizations such as mormonism groups, unions, fraternal or athletic groups, or [...] medical care, and heating? Somewhat hard 08/08/2024 [facility] - Occupational Stress Questionnaire Answer Date [...] any time in the past 12 m [facility], were you homeless or living in a [...] EDT Office Visit [facility] [address] [facility] [place] [address] Rubens Tim DO [address] [facility] [place] [address] 02/11/2025 9:00 AM EST Office Visit [facility] [address] [place] [address] Cas Galicia MD [address] [place] [address] 07/08/2025 8:20 AM EDT Office Visit [facility] [address] [place] [address] Jodi Holden, PA [address] [place] [address] documented as of this encounter Visit Diagnoses Not on filedocumented in this encounter Care Teams General Office Worker Relationship Specialty Start Date End Date Cas Galicia MD [address] [place] [address] PCP - General Family Medicine 04/09/23 documented as of this encounter
--- OUTSIDE RECORDS SUMMARY | 2024-09-29 12:44 | XMS_ITS | Encounter Summary ---
Author Organization [facility] Address [address] [place] [address] Care Team Providers Care Turbo Generator Oiler Name Role Phone Cas Galicia MD Primary Care Provider [phone] Sai Perez MD Unavailable [phone] Rubens Tim DO Unavailable [phone] Source Comments In the event this information is protected by the Federal Confidentiality of Alcohol and Drug AbusePatient Records regulations: The Federal rules restrict any use of the information to criminally investigate or prosecute any alcohol or drug abuse patient.[facility] Encounter Details Date Type Department Care Team (Late st Contact Info) Description 09/21/2020 Get Medical Advice Neurology [address] [place] [address] [place] [address] [place], [place] [id number] RE: Visit Follow Up Question Social History Tobacco Use Types Packs/Day Years Used Date Smoking Tobacco: Never Smokeless Tobacco: Never Alcohol Use Standard Drinks/Week Comments Yes 0 (1 standard drink = 0.6 oz pur e alcohol) rarely uses alcohol PHQ-2 Answer Date Recorded PHQ-2 score 2 09/04/2020 Area Deprivation Index Answer Date Aramis rded National Score (1-100), lower number is lower ri sk Not on file 09/06/2020 State Score (1-10), lower number is lower risk N ot on file 09/06/2020 Data from: https://www.neighborhoodatlas.medicine.[facility]/. Last address used for calculation Not [...] have Coronavirus / COVID-19? No / Unsure 09/06/2020 1:06 PM EDT documented as of this encounter [...] Description 09/30/2024 9:15 AM EDT Office Visit [facility] [address] [place] [address] 1 year follow up 09/30/2024 9:30 AM EDT Visit (SP) Office Hematology/Oncology [address] [place] [address] Shweta Masters APRN.AIDS COUNSELOR [address] [facility] [address] [place] [address] 1 year follow up documented as of this encounter Visit Diagnoses Not on filedocumented in this encounter Care Teams Turbo Generator Oiler Relationship Specialty Start Date End Date Cas Galicia MD PCP - General Family Medicine 02/20/14 Sai Perez MD [address] [place] [address] Primary Staff Physician Cardiology 07/21/21 Rubens Tim DO [address] [place] [address] [place] [address] Referring Sewing Machine Mechanic 08/05/21 documented as of this encounter
--- OUTSIDE RECORDS SUMMARY | 2024-09-29 12:44 | XMS_ITS | Encounter Summary ---
Author Organization [facility] Address [address] [place] [address] Care Team Providers Care Certified Genetic Counselor Name Role Phone Cas Galicia MD Primary Care Provider [phone] Encounter Details Date Type Department Care Team (Late st Contact Info) Description 09/25/[address] [facility] [address] [place] [address] Cas Galicia MD [address] [place] [address] Social History Tobacco Use Types Packs/Day Years [...] 08/08/2024 How often do you attend chur ch or presybeterian services? Patient declined 08/08/2024 Do you belong to any clubs o r organizations such as spiritism groups, unions, fraternal or athletic groups, or [...] medical care, and heating? Somewhat hard 08/08/2024 [facility] Occupat ional Health - Occupational Stress [...] place to sleep or slept in a retirement (including now)? Patient declined 04/08/2023 Housing Stability [...] any time in the past 12 m [facility], were you homeless or living in a retirement (including now)? No 08/08/2024 Comments No Sex and Gender Information Value Date Recorded Sex Assigned at Not on file Legal Sex Female 6:40 PM EDT Gender Identity Not on file Sexual Orientation Not on file documented as of this encounter Plan of Treatment Upcoming Encounters Date Type Department Care Team (Late st Contact Info) Description 12/01/2024 10:40 AM EDT Office Visit [facility] [address] [facility] [place] [address] Rubens Tim DO [address] [facility] [place] [address] 02/11/2025 9:00 AM EST Office Visit [facility] [address] [place] [address] Cas Galicia MD [address] [place] [address] 07/08/2025 8:20 AM EDT Office Visit [facility] [address] [place] [phone] Jodi Holden, PA [address] [place] [address] documented as of this encounter Visit Diagnoses Not on filedocumented in this encounter Care Teams Certified Genetic Counselor Relationship Specialty Start Date End Date Cas Galicia MD [address] [place] [address] PCP - General Family Medicine 04/09/23 documented as of this encounter
--- OUTSIDE RECORDS SUMMARY | 2024-09-29 12:44 | XMS_ITS | Encounter Summary ---
Author Organization [facility] Address [address] [place] [address] Care Team Providers Care Traveling Auditor Name Role Phone Cas Galicia MD Primary Care Provider [phone] Sai Perez MD Unavailable [phone] Rubens Tim DO Unavailable [phone] Source Comments In the event this information is protected by the Federal Confidentiality of Alcohol and Drug AbusePatient Records regulations: The Federal rules restrict any use of the information to criminally investigate or prosecute any alcohol or drug abuse patient.[facility] Encounter Details Date Type Department Care Team (Late st Contact Info) Description 02/14/2022 Patient Msg Neurology [address] [place] [address] Provider, Ccf Appointment Cancellation Social History Tobacco Use Types Packs/Day Years Used Date Smoking Tobacco: Never Passive Smoke Exposure: Past Smokeless Tobacco: Never Alcohol Use Standard Drinks/Week Comments Not Currently 0 (1 standard drink = 0.6 oz pur e alcohol) PHQ-2 Answer Date Recorded PHQ-2 score 0 02/10/2022 Area Deprivation Index Answer Date Aramis rded National Score (1-100), lower number is lower ri sk 73 02/17/2022 State Score (1-10), lower number is lower risk N ot on file 02/17/2022 Data from: https://www.neighborhoodatlas.medicine.[facility]/. Last address used for calculation [address] 02/17/2022 Comments No Sex and Gender Information Value [...] Description 09/30/2024 9:15 AM EDT Office Visit [facility] [address] [place] [address] [place] [address] 1 year follow up 09/30/2024 9:30 AM EDT Visit (SP) Office Hematology/Oncology [address] [place] [address] Shweta Masters APRN.[address] [place] [address] 1 year follow up documented as of this encounter Visit Diagnoses Not on filedocumented in this encounter Care Teams Traveling Auditor Relationship Specialty Start Date End Date Cas Galicia MD PCP - General Family Medicine 02/20/14 Sai Perez MD [address] [place] [address] Primary Staff Physician Cardiology 07/21/21 Rubens Tim DO [address] [place] [address] [place] [address] Referring Ignition Expert 08/05/21 documented as of this encounter
--- OUTSIDE RECORDS SUMMARY | 2024-09-29 12:44 | XMS_ITS | Encounter Summary ---
Author Organization [facility] Address [id number] [address] [place] [address] Care Team Providers Care Engraving Press Operator Name Role Phone Cas Galicia MD Primary Care Provider [phone] Encounter Details Date Type Department Care Team (Late st Contact Info) Description 02/18/2021 Orders Only [facility] [address] [phone] Ref Prov, [place] [address] Social History Tobacco Use Types Packs/Day Years Used Date Smoking Tobacco: Never Smokeless Tobacco: Never Alcohol Use Standard Drinks/Week Comments Never 0 (1 standard drink = 0.6 oz pur e alcohol) PHQ-2 Answer Date Recorded Total Score 16 02/16/2021 Childcare Answer Date Recorded Childcare Unknown 07/17/2018 [...] have Coronavirus / COVID-19? No / Unsure 02/16/2021 12:53 PM EST documented as of this encounter Plan of Treatment Upcoming Encounters Date Type Department Care Team (Late st Contact Info) Description 11/24/2024 10:00 AM EDT Office Visit [facility] Adult Endocrinology, A Department of [facility] [address] [phone] Akila Ballard MD [address] [address] 12/26/2024 10:30 AM EST Office Visit [facility] Neurology, A Department of [facility] [address] [address] Stella Flowers, FUEL VERIFICATION TECHNICIAN-SENIOR INFORMATICA DEVELOPER [address] [address] documented as of this encounter Procedures Procedure Name Priority Date/Time Associated Diagnosis Comments MULTIPLE LABS Routine 11/14/2020 XR CHEST 1 VW Routine 11/14/2020 CT BRAIN WO CONT Routine 11/14/2020 ECG 12-LEAD Routine 11/14/2020 ECHO 2.0 Routine 11/12/2020 ECG 12-LEAD Routine 11/12/2020 CT CTA CHEST Routine 11/11/2020 ECG 12-LEAD Routine 11/11/2020 documented in this encounter Results * Multiple labs (11/14/2020) us Not In System Ref Prov CA IMAGING Final Res ult MANUALLY TRANSCRIBED RESULTS * X-ray chest 1 view (11/14/2020) Anatomical Region Laterality Modality Body, Chest N/A Computed Radiogr aphy us Not In System Ref Prov IMG DIAGNOSTIC IMAGING OR DERABLES Final Result * CT brain without contrast (11/14/2020) Anatomical Region Laterality Modality Neuro, Head, Head and Neck, Neuro Covera N/A Computed Tomography us Not In System Ref Prov IMG CT ORDERABLES Final R esult * ECG 12 lead (11/14/2020) us Not In System Ref Prov ECG ORDERABLES Final Res ult Performing Organization Address [facility] de Phone Number MANUALLY TRANSCRIBED RESULTS * Echo 2.0 (11/12/2020) Anatomical Region Laterality Modality Chest N/A Ultrasound us Not In System Ref Prov CV ECHO ORDERABLES Final Result * ECG 12 lead (11/12/2020) us Not In System Ref Prov ECG ORDERABLES Final Res ult Performing Organization Address [facility] de Phone Number MANUALLY TRANSCRIBED RESULTS * CT angiogram chest (11/11/2020) Anatomical Region Laterality Modality Lung, Body, Chest, Vascular, Body Covera N/A Computed Tomography us Not In System Ref Prov IMG CT ORDERABLES Final R esult * ECG 12 lead (11/11/2020) us Not In System Ref Prov ECG ORDERABLES Final Res ult Performing Organization Address [facility] de Phone Number MANUALLY TRANSCRIBED RESULTS documented in this encounter Visit Diagnoses Not on filedocumented in this encounter Additional Health Concerns Assessment Noted Time PHQ-9 Depression Total Score: 16 02/16/ 022 1:06 PM EST documented as of this encounter Care Teams Engraving Press Operator Relationship Specialty Start Date End Date Cas Galicia MD PCP - General Family Medicine 11/18/20 documented as of this encounter
--- OUTSIDE RECORDS SUMMARY | 2024-09-29 12:44 | XMS_ITS | Encounter Summary ---
Author Organization [facility] Address [id number] [address] [place] [address] Care Team Providers Care Health Information Provider Name Role Phone Cas Galicia MD Primary Care Provider Encounter Details Date Type Department Care Team (Late st Contact Info) Description 12/24/2020 Orders Only [facility] Cardiology [address] [place] [phone] External, Scanning Provider Social History Tobacco Use Types Packs/Day Years Used Date Smoking Tobacco: Never Smokeless Tobacco: Never Alcohol Use Standard Drinks/Week Comments Never 0 (1 standard drink = 0.6 oz pur e alcohol) Childcare Answer Date Recorded Childcare Unknown 07/17/2018 Employment Answer Date Recorded Employment Unknown 07/17/2018 Purpose - Life Answer Date Recorded Purpose and direction in life Unknown Comments Unknown Sex and Gender Information Value [...] have Coronavirus / COVID-19? No / Unsure 12/27/2020 12:57 PM EST documented as of this encounter Plan of Treatment Upcoming Encounters Date Type Department Care Team (Late Contact Info) Description 11/24/2024 10:00 AM EDT Office Visit [facility] Adult Endocrinology, A Department of [facility] [address] [phone] Akila Ballard MD [address] [address] 12/26/2024 10:30 AM EST Office Visit [facility] Neurology, A Department of [facility] [address] [address] Stella Flowers, VIRTUAL ASSISTANT FOR ADVERTISERS-TRANSPORT TECH [address] [address] documented as of this encounter Procedures Procedure Name Priority Date/Time Associated Diagnosis Comments MULTIPLE LABS Routine 11/16/2020 ECHO COMPLETE WO CONTRAST Routine 11/16/2020 LIPID PROFILE Routine 11/16/2020 ECG 12-LEAD Routine 11/15/2020 ECG 12-LEAD Routine 11/01/2020 documented in this encounter Results * Lipid profile (11/16/2020) External Cholesterol 302 MANUALLY TRANSCRIBED RESULTS External Cholesterol:Hdl 5.8 MANUALLY TRANSCRIBED RESULTS External Hdl Cholesterol 52 MANUALLY TRANSCRIBED RESULTS External Ldl (Calc) 172 MANUALLY TRANSCRIBED RESULTS External Triglycerides 392 MANUALLY TRANSCRIBED RESULTS External Very Low Lipoprotein 78 MANUALLY TRANSCRIBED RESULTS us Scanning Provider External LAB BLOOD ORDERABLES Edited Result - Final MANUALLY TRANSCRIBED RESULTS * Multiple labs (11/16/2020) us Scanning Provider External NE IMAGING Final Result MANUALLY TRANSCRIBED RESULTS * Echo complete W/O contrast (11/16/2020) Anatomical Region Laterality Modality Chest N/A Ultrasound us Scanning Provider External CV ECHO ORDERABLES Fi nal Result * ECG 12 lead (11/15/2020) us Scanning Provider External ECG ORDERABLES Final Result Performing Organization Address City/[facility] Co de Phone Number MANUALLY TRANSCRIBED RESULTS * ECG 12 lead (11/01/2020) us Scanning Provider External ECG ORDERABLES Final Result Performing Organization Address [facility] Co de Phone Number MANUALLY TRANSCRIBED RESULTS documented in this encounter Visit Diagnoses Not on filedocumented in this encounter Care Teams Health Information Provider Relationship Specialty Start Date End Date Cas Galicia MD PCP - General Family Medicine 11/18/20 documented as of this encounter
--- OUTSIDE RECORDS SUMMARY | 2024-09-29 12:44 | XMS_ITS | Encounter Summary ---
Author Organization [facility] Address [address] [place] [address] Care Team Providers Care Wool Hat Sanding Machine Operator Name Role Phone Cas Galicia MD Primary Care Provider [phone] Reason for Visit * Reason Comments Med Refill Encounter Details Date Type Department Care Team (Late st Contact Info) Description 09/16/2024 Refill [facility] [address] [place] [address] Cas Galicia MD [address] [place] [phone] Vitamin D deficiency Social History Tobacco Use Types Packs/Day Years [...] How often do you attend chur or orthodoxy services? Patient declined 08/08/2024 Do you belong [...] medical care, and heating? Somewhat hard 08/08/2024 [facility] - Occupational Stress Questionnaire Answer Date [...] a fdc (including now)? Patient declined 04/08/2023 Housing Stability [...] any time in the past 12 m [facility], were you homeless or living in a fdc (including now)? No 08/08/2024 Comments No Sex [...] EDT Office Visit [facility] [address] [facility] [address] Rubens Tim DO [address] [facility] [address] [place], [place] [phone] 02/11/2025 9:00 AM EST Office Visit [facility] [address] [place] [address] Cas Galicia MD [address] [place] [address] 07/08/2025 8:20 AM EDT Office Visit [facility] [address] [place] [address] Jodi Holden, PONCE [address] [place] [address] documented as of this encounter Visit Diagnoses Diagnosis Vitamin D deficiency documented in this encounter Care Teams Wool Hat Sanding Machine Operator Relationship Specialty Start Date End Date Cas Galicia MD [address] [place] [address] PCP - General Family Medicine 04/09/23 documented as of this encounter
--- OUTSIDE RECORDS SUMMARY | 2024-09-29 12:44 | XMS_ITS | Encounter Summary ---
Author Organization [facility] Address [id number] [address] [place] [address] Care Team Providers Care Epic Ambulatory Analysts Name Role Phone Cas Galicia MD Primary Care Provider [phone] Encounter Details Date Type Department Care Team (Late st Contact Info) Description 03/16/2022 Orders Only [facility]ocr[facility]ology [address] [place] [address] Cas Galicia MD [address] [place] [address] Social History Tobacco Use Types Packs/Day Years Used Date Smoking Tobacco: Never Smokeless Tobacco: Never Alcohol Use Standard Drinks/Week Comments Never 0 (1 standard drink = 0.6 oz pur e alcohol) PHQ-2 Answer Date Recorded Total Score 0 10/05/2021 Childcare Answer Date Recorded Childcare Unknown 07/17/2018 [...] Orientation Straight 05/14/2021 2: 48 PM EDT documented as of this encounter Plan of Treatment Upcoming Encounters Date Type Department Care Team (Late st Contact Info) Description 11/24/2024 10:00 AM EDT Office Visit [facility] Adult Endocrinology, A Department of [facility] [address] [address] Akila Ballard MD [address] [address] 12/26/2024 10:30 AM EST Office Visit [facility] Neurology, A Department of [facility] [address] [address] Stella Flowers, TESTING PROJECTS ADMINISTRATOR-CLIENT ONBOARDING ANALYST [address] [address] documented as of this encounter Procedures Procedure Name Priority Date/Time Associated Diagnosis Comments EXTERNAL LAB ORDERS / RESULTS Routine 03/16/2022 documented in this encounter Results * External Lab Orders / Results (03/16/2022) Cas Galicia MD LAB ORDERABLES Final Result documented in this encounter Visit Diagnoses Not on filedocumented in this encounter Additional Health Concerns Assessment Noted Time PHQ-9 Depression Total Score: 0 10/06/19 22 10:43 AM EDT documented as of this encounter Care Teams Epic Ambulatory Analysts Relationship Specialty Start Date End Date Cas Galicia MD PCP - General Family Medicine 11/18/20 documented as of this encounter
--- OUTSIDE RECORDS SUMMARY | 2024-09-29 12:44 | XMS_ITS | Encounter Summary ---
Author Organization [facility] Address [address] [place] [address] Care Team Providers Care Glass Technologist Name Role Phone Cas Galicia MD Primary Care Provider [phone] Sai Perez MD Unavailable [phone] Rubens Tim DO Unavailable [phone] Source Comments In the event this information is protected by the Federal Confidentiality of Alcohol and Drug AbusePatient Records regulations: The Federal rules restrict any use of the information to criminally investigate or prosecute any alcohol or drug abuse patient.[facility] Encounter Details Date Type Department Care Team (Late st Contact Info) Description 05/30/2021 Patient Msg Neurology [address] [place] [address] Provider, Ccf Important Medication for Neuro Autonomic ANS with TILT Testing 06/14/2021 Social History Tobacco Use Types Packs/Day Years [...] N ot on file 09/06/2020 Data from: https://www.neighborhoodatlas.medicine.[facility]/. Last address used for calculation Not [...] suspected to have Coronavirus/COVID-19? No / Unsure 05/24/2021 11:31 AM EDT documented as of this encounter [...] Description 09/30/2024 9:15 AM EDT Office Visit [facility] [address] [place] [address] 1 year follow up 09/30/2024 9:30 AM EDT Visit (SP) Office Hematology/Oncology [address] [facility] [place] [address] Shweta Masters APRN.HRBP [address] [facility] [place] [address] 1 year follow up documented as of this encounter Visit Diagnoses Not on filedocumented in this encounter Care Teams Glass Technologist Relationship Specialty Start Date End Date Cas Galicia MD PCP - General Family Medicine 02/20/14 Sai Perez MD [address] [place] [address] Primary Staff Physician Cardiology 07/21/21 Rubens Tim DO [address] [place] [address] [place] [address] Referring Pre Press Operator 08/05/21 documented as of this encounter
--- OUTSIDE RECORDS SUMMARY | 2024-09-29 12:44 | XMS_ITS | Clinical Summary ---
Author Organization [facility] Address [address] [place] [address] Care Team Providers Care Senior Clinical Study Manager Name Role Phone Cas Galicia MD Primary Care Provider [phone] Allergies Active Allergy Reactions Criticality Noted Date Comments Aspirin Angioedema,Rash,Unk nown Low 09/04/2011 Other reaction(s): Angioedema, Unknown, Unknown Cefaclor 07/07/2022 Cefuroxime 07/07/2022 Clindamycin 07/07/2022 Galcanezumab-Gnlm 07/07/2022 Erythromycin Shortness of breath,Swelling High 09/04/2011 Other Reaction(s): Unknown Fish Allergy Hives Medium 07/25/2021 Gatifloxacin Diarrhea 2014 Ibuprofen Rash,Unknown Medium 09/04/2011 Due to clotting disorder-Aleve Other reaction(s): Unknown, Unknown Due to clotting disorder-Aleve Due to clotting disorder-Aleve Other Reaction(s): Unknown Iodinated Contrast Media Anaphylaxis High 02/23/2014 Other reaction(s): Unknown Does not tolerate with pre-medication Other reaction(s): Unknown Does not tolerate with pre-medication Tolerated with pre-medication on 09/22/21 Other reaction(s): Unknown Does not tolerate with pre-medication Tolerated with pre-medication on 09/22/21 Other reaction(s): Unknown Does not tolerate with pre-medication Other Reaction(s): Unknown Latex Itching,Rash,Swelli ng,Unknown Low 09/04/2011 Skin cracks and bleeds Other reaction(s): Unknown Skin cracks and bleeds Skin cracks and bleeds Other Reaction(s): Unknown Lavender Oil Anaphylaxis High 06/13/2020 Levofloxacin Rash Low 11/11/2020 Menthol Hives 02/27/2022 Naproxen Angioedema 09/06/2020 Other reaction(s): Angioedema Norethindrone-Eth Estradiol 09/04/2011 Chest hurt and legs turned black -- saw Dr. Jorge London Penicillin G Benzathine 08/22/2023 Other Reaction(s): Unknown Penicillins Itching,Rash Low 09/04/2011 Other reaction(s): Unknown, Unknown, Unknown Povidone-Iodine Rash Low 05/24/2022 Rofecoxib Rash,Unknown Low 09/04/2011 Other reaction(s): Unknown Shellfish-Derived Products Hives,Rash Low 01/08/2022 Dimethicone 07/07/2022 Sulfa Antibiotics Shortness of breath,Swelling High 03/21/2015 Other reaction(s): Unknown Other reaction(s): Unknown Other reaction(s): Unknown Sulfamethoxazole 08/22/2023 Other Reaction(s): Unknown Sulfamethoxazole-Trimetho prim Unknown High 01/23/2014 Cant breathe Other reaction(s): Other Cant breathe Topiramate 02/11/2024 Valacyclovir Anaphylaxis,Shortne ss of breath High 10/05/2021 Bupropion 07/07/2022 Zolpidem Unknown High 05/24/2022 Uncontrolable limb movements Muscle spasms Medications cyanocobalamin (Vitamin B-12) 500 MCG tablet Take 1,000 mcg by mouth Daily Active fluticasone (Flonase Sensimist) 27.5 MCG/SPRAY nasal spray Administer 2 sprays into each nostril in the morning. Active montelukast (Singulair) 10 MG tablet Take by mouth Active lamoTRIgine (LaMICtal) 150 MG tablet Take by mouth Active fremanezumab (Ajovy) 225 MG/1.5ML auto-injector Active EPINEPHrine (EPIPEN 2-ERMA IJ) Inject as directed Active pyridostigmine (Mestinon) 180 MG ER tablet Take 180 mg by mouth in the morning and 180 mg before bedtime. Do not crush or chew. Active Synthroid 100 MCG tablet 023 Active sertraline (Zoloft) 100 MG tablet Take 100 mg by mouth Daily 024 Active Azelastine HCl 137 MCG/SPRAY solution 024 Active EPINEPHrine (Epipen) 0.3 MG/0.3ML injection syringe 024 Active Cymbalta [address] capsule Active famotidine (Pepcid) 20 MG tablet Take by mouth Active DHEA 10 MG capsule Take 5 mg by mouth Active magnesium, as gluconate, (Magonate) 500 (27 Mg) MG tablet Take 27 mg by mouth in the morning and 27 mg before bedtime. Active liothyronine (Cytomel) 5 MCG tablet 5 mcg 024 Active levalbuterol (Xopenex HFA) 45 MCG/ACT inhalerIndication s:Moderate persistent asthma without complication (HCC) Inhale 2 puffs every 4 (four) hours if needed for wheezing or shortness of breath 15 g 3 025 Active levalbuterol (Xopenex Concentrate) 1.25 MG/0.5ML nebulizer solutionIndicatio ns:Moderate persistent asthma without complication (HCC) Take 0.5 mL (1.25 mg) by nebulization every 4 (four) hours if needed for wheezing or shortness of breath 60 each 2 025 Active sAXagliptin (Onglyza) 5 MG tabletIndications :Type 2 diabetes mellitus with hyperglycemia, without long-term current use of insulin (HCC) TAKE 1 TABLET BY MOUTH EVERY DAY 90 tablet 3 025 Active zonisamide (Zonegran) 100 MG capsule TAKE 2 CAPSULES (200 MG TOTAL) BY MOUTH IN THE MORNING. 025 Active Ubrogepant (Ubrelvy) 100 MG tablet Take by mouth Active hydrocortisone 2.5 % creamIndications: Other specified dermatitis Apply topically 2 (two) times a day as needed (Rash) Apply thin layer to affected areas bid prn for flares 30 g 3 025 Active triamcinolone (Kenalog) 0.1 % creamIndications: Other specified dermatitis Apply to affected areas, up to twice a day when flared, do not use one the face, groin, or underarms, 30 day supply 80 g 11 025 Active baclofen (Lioresal) 20 MG tablet Take 1 tablet (20 mg) by mouth in the morning and 1 tablet (20 mg) in the evening and 1 tablet (20 mg) before bedtime. 025 Active furosemide (Lasix) 20 MG tabletIndications :Edema of both legs Take 1 tablet (20 mg) by mouth Daily as needed (Edema) 30 tablet 3 025 Active cholecalciferol (Vitamin D-3) 125 MCG (5000 UT) capsuleIndication s:Vitamin D deficiency TAKE 1 CAPSULE (125 MCG) BY MOUTH DAILY 30 capsule 3 025 Active predniSONE (Deltasone) 50 MG tabletIndications :Chronic rhinosinusitis Take 1 tablet (50 mg) by mouth Daily for 6 days 6 tablet 025 2024 Active doxycycline (Vibra-Tabs) 100 MG tabletIndications :Chronic rhinosinusitis Take 1 tablet (100 mg) by mouth in the morning and 1 tablet (100 mg) before bedtime. Do all this for 10 days. Take with a full glass of water and do not lie down for at least 30 minutes after. 20 tablet 025 2024 Active cholecalciferol (Vitamin D-3) 125 MCG (5000 UT) capsuleIndication s:Vitamin D deficiency Take 1 capsule (125 mcg) by mouth Daily 30 capsule 3 025 2024 Discontinued levoFLOXacin (Levaquin) 750 MG tabletIndications :Chronic rhinosinusitis Take 1 tablet (750 mg) by mouth Daily for 7 days 7 tablet 025 2024 Discontinued Active Problems Problem Noted Date Diagnosed Date Right wrist pain 09/25/2024 Assessment & Plan (09/25/2024 4:41 PM EDT): Pain after fall and not improving. Repeat x-ray and start PT. Treat with prednisone. If no improvement may need MRI and or ortho. Right forearm pain 09/25/2024 Assessment & Plan (09/25/2024 4:41 PM EDT): Pain after fall and not improving. Repeat x-ray and start PT. Treat with prednisone. If no improvement may need MRI and or ortho. Annual physical exam 08/11/2024 Assessment & Plan (08/11/2024 10:03 AM EDT): Due for labs. Discussed proper diet and regular aerobic exercise. Need aerobic exercise 5-6 days a week for 30 minutes at a time. Smaller portions and limit total calories. Colonoscopy after age 45. Tetanus every 10 years. Advised not to smoke. Hormone imbalance 04/30/2024 PCOS (polycystic ovarian syndrome) 04/30/2024 Class 2 severe obesity due t o excess calories with serious comorbidity and body mass index (BMI) of 37.0 to 37.9 in adult 02/11/2024 Assessment & Plan (02/11/2024 10:23 AM EST): Weight loss indicated Allergic reaction 09/26/2023 Assessment & Plan (09/26/2023 10:10 AM EDT): Recent reaction and improved with treatment. 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 Edema of both legs 04/09/2023 Assessment & Plan (08/11/2024 10:04 AM EDT): Worsening edema and add lasix PRN. Elevate legs PRN. Warned of worsening autonomic symptoms with diuretic and monitor. Assessment & Plan (02/11/2024 10:36 AM EST): Edema stable and elevate legs PRN. Assessment & Plan (10/10/2023 9:42 AM EDT): Edema stable and elevate legs PRN. Assessment & Plan (04/09/2023 9:29 AM EST): Edema stable and elevate legs PRN. Dyspareunia in female 01/12/2023 Gross hematuria 01/12/2023 Ovarian cyst 01/12/2023 Right inguinal hernia 01/12/2023 Urethral stricture 01/12/2023 Vitamin D deficiency 01/12/2023 Qualitative platelet disorder 04/03/2022 Palpitations 10/20/2021 Diffuse pain 08/23/2021 Decreased activity tolerance 08/23/2021 Allergic reaction to contrast dye 07/25/2021 Adverse food reaction 07/25/2021 Moderate persistent asthma without complication 07/25/2021 Assessment & Plan (02/11/2024 10:37 AM EST): Breathing stable with symbicort and continue. Tachycardia from albuterol and try xopenex PRN. Assessment & Plan (10/10/2023 9:42 AM EDT): Breathing stable with symbicort and continue. Use albuterol PRN. Assessment & Plan (04/09/2023 9:29 AM EST): Breathing stable with symbicort and continue. Use albuterol PRN. 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 Assessment & Plan (10/10/2023 9:42 AM EDT): No change in symptoms and monitor. Assessment & Plan (04/09/2023 9:29 AM EST): No change in symptoms and monitor. Trapezius muscle spasm 03/02/2021 Word finding difficulty 03/02/2021 Aspirin allergy 02/10/2021 Autonomic dysfunction 02/10/2021 Assessment & Plan (02/11/2024 10:35 AM EST): Continued symptoms and continue medication. Follow with cardiology as scheduled. Assessment & Plan (01/16/2023 11:50 AM EST): Continued symptoms and continue medication. Follow with cardiology as scheduled. History of hysterectomy 02/10/2021 PTSD (post-traumatic stress disorder) 12/24/2020 Symptomatic bradycardia 12/24/2020 MDD (major depressive disorder), recurrent episo de, mild 12/24/2020 Assessment & Plan (02/11/2024 10:36 AM EST): Symptoms stable and follow with psychiatry. Type 2 diabetes mellitus wit h hyperglycemia, without long-term current use of insulin 12/24/2020 Assessment & Plan (08/11/2024 10:05 AM EDT): Not checking BS and due for A1C. Stick to ADA diet and limit carbs. Assessment & Plan (02/11/2024 10:36 AM EST): Reports BS controlled and due for A1C. Stick to ADA diet and limit carbs. Assessment & Plan (10/10/2023 9:42 AM EDT): Reports BS controlled and A1C 5.6. Stick to ADA diet and limit carbs. Insulin elevated and stop januvia. Start ozempic. Assessment & Plan (04/09/2023 9:28 AM EST): Reports BS controlled and due for A1C. Stick to ADA diet and limit carbs. Assessment & Plan (01/16/2023 11:50 AM EST): Reports BS controlled and A1C 5.8. Stick to ADA diet and limit carbs. Migraine without aura and wi thout status migrainosus, not intractable 12/24/2020 KATELIN (obstructive sleep apnea) 12/24/2020 Chronic rhinosinusitis 12/22/2015 Assessment & Plan (09/25/2024 4:40 PM EDT): Continued symptoms and feels like right nasal cavity plugged. Treat with antibiotics and steroids. Continue medication. Refer to ENT. Assessment & Plan (02/11/2024 10:35 AM EST): Symptoms stable with medication and continue. Assessment & Plan (10/10/2023 9:42 AM EDT): Symptoms stable with medication and continue. Assessment & Plan (04/09/2023 9:29 AM EST): Symptoms stable with medication and continue. Gastroesophageal reflux disease 12/22/2015 Assessment & Plan (02/11/2024 10:23 AM EST): No symptoms Hearing loss 12/22/2015 Hyperlipidemia 12/22/2015 Irritable bowel syndrome 12/22/2015 Primary hypothyroidism 12/22/2015 Arachnoid cyst of pituitary gland 04/07/2015 Bleeding disorder 02/23/2014 Resolved Problems Problem Noted Date Diagnosed Date Resolved Date COVID-19 02/27/2024 08/11/2024 Assessment & Plan (02/27/2024 8:57 AM EST): Recent infection and continued cough and SOB. Repeat steroids and use albuterol every 4 hours x 48 then PRN. Use OTC PRN for symptoms. Acute non-recurrent pansinusitis 04/09/2023 10/10/2023 Assessment & Plan (04/09/2023 9:30 AM EST): Take antibiotics for 7 days. Use OTC PRN cough or congestion. Use Motrin or Tylenol as needed for fever, aches, or pains. Increase fluid intake and rest. Should improve over next 5-7 days and if no better or worse call for re-evaluation. Abnormal urine sediment 01/12/202301/05 Stress incontinence 01/12/2023 04/09/19 24 Syncope and collapse 05/24/2022 023 Overview (01/12/2023): Added automatically from request for surgery [id number] Adenovirus infection 01/10/2022 023 RSV (respiratory syncytial virus infection) 01/10/2022 01/16/2023 Exacerbation of asthma 01/08/202201/16 Orthostatic intolerance 08/23/2021 03/0 05/2023 Drug reaction 07/25/2021 01/16/2023 Blood pressure instability 05/24/2021 1 03/19/2022 Orthostatic lightheadedness 05/24/2021 04/09/2023 Hypersomnia with sleep apnea 03/02/2021 04/09/2023 Chest pain 12/24/2020 04/09/2023 Assessment & Plan (01/16/2023 11:50 AM EST): Continued pain but unclear cause. Follow with cardiology. Acute stress disorder 12/22/20152022 Asthma 12/22/2015 04/09/2023 Generalized headache 12/22/2015 023 Abdominal pain, acute, right lower quadrant 12/30/2011 01/16/2023 Encounters Date Type Department Care Team Description 09/25/2024 3:45 PM EDT Office Visit [facility] [address] [place] [address] Cas Glaicia MD Chronic rhinosinusitis (Primary Dx); Right wrist pain; Right forearm pain 09/25/2024 Abstract [facility] [address] [place] [address] Cas Galicia MD 09/25/2024 Bamboo flowsheet [facility] [address] [place] [address] Cas Galicia MD 09/16/2024 Refill [facility] [address] [place] [address] Cas Galicia MD Vitamin D deficiency 08/11/2024 9:00 AM EDT Office Visit [facility] [address] [place] [address] Cas Galicia MD Annual physical exam (Primary Dx); Type 2 diabetes mellitus with hyperglycemia, without long-term current use of insulin (HCC); Primary hypothyroidism ; Edema of both legs 08/11/2024 Results Follow-Up [facility] [address] [place] [address] Cas Galicia MD ALL CBC WITH AUTO DIFF, MLR HEMOGLOBIN A1C, TBH MICROALB CREAT RATIO RANDOM, Additional followed-up results: 4 08/11/2024 Clinisync Result Encounter [facility] Unsolicited Cas Galicia MD 08/11/2024 Bamboo flowsheet [facility] [address] [place] [address] Cas Galicia MD 08/08/2024 Travel 07/10/2024 [facility] [address] [place] [address] Halima Morris MD 07/08/2024 8:30 AM EDT Office Visit [facility] [address] [place] [address] Jodi Holden PA Melanocytic nevus of trunk (Primary Dx); Other specified dermatitis; Dermatofibroma of right upper extremity 07/08/2024 Bamboo flowsheet [facility] [address] [place] [address] Jodi Holden PA 07/08/2024 Travel from Last 3 Months Immunizations Immunization Administration Dates Next Due Influenza, [id number] 11/20/2019 Influenza, Unspecified 11/20/2019,11/06/2019 Influenza, injectable, quadrivalent, preservativ e free 10/27/2019 Family History * Patient is adopted Medical History Relation Name Comments Heart disease Father adopted father ; biological father's hx unknown Cancer Maternal Grandfather Aortic aneurysm Maternal Grandmother Heart disease Maternal Grandmother Hypertension Maternal Grandmother Skin cancer Maternal Grandmother Cancer Mother Cervical cancer Mother Diabetes Mother Hypertension Mother Skin cancer Mother Cancer Paternal Grandmother Lung cancer Paternal Grandmother Diabetes Sister Melanoma Neg Hx Relation Name Status Comments Father Maternal Grandfather Maternal Grandmother Mother Paternal Grandmother Sister Social History Tobacco Use Types Packs/Day Years Used Date Smoking Tobacco: Never Smokeless Tobacco: Never Tobacco Cessation:Counseling Given: Not Answered Alcohol Use Standard Drinks/Week Comments Never 0 [...] How often do you attend chur or mosque services? Patient declined 08/08/2024 Do you belong to any clubs o r organizations such as congregation groups, unions, fraternal or athletic groups, or [...] medical care, and heating? Somewhat hard 08/08/2024 [facility] [place] of Occupat ional Health - Occupational Stress [...] place to sleep or slept in a senior living (including now)? Patient declined 04/08/2023 Housing Stability [...] any time in the past 12 m [facility], were you homeless or living in a senior living (including now)? No 08/08/2024 Comments No Sex and Gender Information Value Date Recorded Sex Assigned at Not on file Legal Sex Female 6:40 PM EDT Gender Identity Not on file Sexual Orientation Not on file Last Filed Vital Signs Vital Sign Reading [...] Mass Index 39.14 09/25/2024 3:50 PM EDT Plan of Treatment Upcoming Encounters Date Type Department Care Team (Late st Contact Info) Description 12/01/2024 10:40 AM EDT Office Visit [facility] [address] [place] [phone] Rubens Tim DO [address] [place] [address] 02/11/2025 9:00 AM EST Office Visit [facility] [address] [place] [address] Cas Galicia MD [address] [place] [address] 07/08/2025 8:20 AM EDT Office Visit [facility] [address] [place] [address] Jodi Holden, POCNE [address] [place] [address] Health Maintenance Due Date Last Done Comments Diabetes: Hemoglobin A1C 02/22/202408/21/2 024, 01/01/2023, 01/01/2023, Additional history exists Diabetes: Urine Protein Screening 04/12/2024 04/13/2023 Mammogram 08/30/2024 08/31/2023 Influenza Vaccine (#1) 2024 0, 11/06/2019, 10/27/2019 Diabetes: Retinopathy Screening 12/17/2025 Cervical Cancer Screening Discontinued Pap Smear Discontinued 03/17/2013 HPV/Cotest Discontinued Procedures Procedure Name Priority Date/Time Associated Diagnosis Comments ALL THYROXINE (T4) FREE Routine 08/11/2024 10:46 AM EDT ALL THYROID STIM HORMONE Routine 08/11/2024 10:46 AM EDT ALL LIPID PROFILE (FASTING) Routine 08/11/2024 10:46 AM EDT [facility] CMP (CMP) (FOR REMOTE [facility] USE) Routine 08/11/2024 10:46 AM EDT MLR HEMOGLOBIN A1C Routine 08/11/2024 10 :46 AM EDT ALL CBC WITH AUTO DIFF Routine 10:46 AM EDT TBH MICROALB CREAT RATIO RANDOM Routine 08/11/2024 10:32 AM EDT SCANNED LABS Routine 07/10/2024 10:35 AM EDT MM TOMOSYNTHESIS DIAGNOSTIC BI 08/31/2023 1:39 PM EDT HEMOGLOBIN A1C Routine 01/01/2023 12:58 PM EST from Last 3 Months or Most Recently Relevant to Health Maintenance Results * MLR HEMOGLOBIN A1C (08/11/2024 10:46 AM EDT) GLYCOHEMOGLOBIN A1C 5.9 4.5 - 6.2 % [facility] Comment: ADA RECOMMENDED LIMIT 4.0 - 6.0 ADA THERAPEUTIC TARGET < 7.0 ACTION SUGGESTED > 7.0 ESTIMATED AVERAGE GLUCOSE 123 mg/dL [facility] 08/11/2024 10:4 6 AM EDT 08/11/2024 10:55 AM EDT Narrative CLINISYNC - 08/11/2024 11:24 AM EDT us Cas Galicia MD CLINDARCIE Final Result [facility] * (ABNORMAL) [facility] CMP (CMP) (FOR REMOTE [facility] USE) (08/11/2024 10:46 AM EDT) SODIUM 144 136 - 145 mmol/L TBH POTASSIUM 4.2 3.5 - 5.1 mmol/L TBH CHLORIDE 107 98 - 107 mmol/L TBH CARBON DIOXIDE 27.7 21.0 - 32.0 mmol/L TBH ANION GAP 13.5 TBH GLUCOSE 91 74 - 106 mg/dL TBH BLOOD UREA NITROGEN 13.0 7.0 - 18.0 mg/dL TBH CREATININE 0.77 0.55 - 1.02 mg/dL TBH TBH EGFR-AF BELARUSIAN >60 >=60 mL/min/1. 73m 2 TBH TBH EGFR-NON AF BELARUSIAN >60 >=60 mL/min/1. 73m 2 TBH BUN CREATININE RATIO 16.9 TBH CALCIUM 8.7 8.5 - 10.1 mg/dL TBH BILIRUBIN TOTAL 0.3 0.2 - 1.0 mg/dL TBH ASPARTATE AMINO TRANSFERASE 12(L) 15 - 37 U/L TBH ALANINE AMINOTRANSFERASE 27 14 - 59 U/L TBH ALKALINE PHOSPHATASE 71 46 - 116 U/L TBH TOTAL PROTEIN 7.0 6.4 - 8.2 g/dL TBH ALBUMIN LEVEL 3.6 3.4 - 5.0 g/dL TBH GLOBULIN 3.4 g/dL TBH ALBUMIN GLOBULIN RATIO 1.1 TBH 08/11/2024 10:4 6 AM EDT 08/11/2024 10:55 AM EDT Narrative CLINISYNC - 08/11/2024 11:37 AM EDT Cas [place] Final Result [facility] * ALL THYROXINE (T4) FREE (08/11/2024 10:46 AM EDT) FREE T4 0.82 0.76 - 1.46 ng/dL TBH 08/11/2024 10:4 6 AM EDT 08/11/2024 10:55 AM EDT Narrative CLINISYNC - 08/11/2024 11:50 AM EDT Cas [place] Final Result Performing Organization Address City/[facility]/ZIP Co de Phone Number [facility] * ALL THYROID STIM HORMONE (08/11/2024 10:46 AM EDT) THYROID STIMULATING HORMONE 0.432 0.358 - 3.740 uIU/mL TB 08/11/2024 10:4 6 AM EDT 08/11/2024 10:55 AM EDT Narrative CLINISYNC - 08/11/2024 11:37 AM EDT Cas [place] Final Result Performing Organization Address [facility] de Phone Number [facility] * (ABNORMAL) ALL LIPID PROFILE (FASTING) (08/11/2024 10:46 AM EDT) TRIGLYCERIDES 261(H) <=150 mg/dL TBH CHOLESTEROL 207(H) <=200 mg/dL TB HDL CHOLESTEROL 44 40 - 60 mg/dL TB Comment: > or =60 mg/dl - LOW CARDIOVASCULAR RISK <40 mg/dl - HIGH CARDIOVASCULAR RISK LDL CHOLESTEROL CALCULATED 111.0 mg/dL TB Comment: <100 mg/dl OPTIMAL 100-129 mg/dl NEAR OR ABOVE OPTIMAL 130-159 mg/dl BORDERLINE HIGH 160-189 mg/dl HIGH >190 mg/dl VERY HIGH VLDL CHOLESTEROL 52.2 mg/dL TB CHOL HDL RATIO 4.7 TB Comment: 3.3 - 4.4 LOW RISK 4.4 - 7.1 AVERAGE RISK 7.1 - 11.0 MODERATE RISK >11.0 HIGH RISK 08/11/2024 10:4 6 AM EDT 08/11/2024 10:55 AM EDT Narrative CLINISYNC - 08/11/2024 11:37 AM EDT Cas [place] Final Result Performing Organization Address City/[facility]/ZIP Co de Phone Number [facility] * ALL CBC WITH AUTO DIFF (08/11/2024 10:46 AM EDT) [facility] TB WBC 6.8 4.0 - 11.0 10 3/uL TBH TBH RBC 4.97 4.20 - 5.40 10 6/uL TBH TBH HGB 14.7 12.0 - 16.0 g/dL TBH TBH HCT 43.2 36.0 - 48.0 % TBH TBH MCV 86.9 81.0 - 99.0 fL TBH TBH MCH 29.6 26.7 - 34.0 pg TBH TBH MCHC 34.0 29.9 - 35.2 g/dL TBH TBH RDW 11.6 11.0 - 15.0 % TBH TBH PLT 258 150 - 450 10 3/uL TBH TBH MPV 10.1 9.5 - 13.5 fL TBH NEUTROPHILS PERCENT AUTO 68.0 43.0 - 75.0 % TBH LYMPHOCYTES PERCENT AUTO 22.8 20.5 - 60.0 % TBH MONOCYTES PERCENT AUTO 5.7 1.7 - 12.0 % TBH TBH EO % 2.6 0.9 - 7.0 % TBH BASOPHILS PERCENT AUTO 0.6 0.2 - 2.0 % TBH IMMATURE GRANULOCYTES PCT AUTO 0.3 0.0 - 0.5 % TBH NEUTROPHILS ABSOLUTE AUTO 4.7 1.4 - 6.5 10 3/uL TBH LYMPHOCYTES ABSOLUTE AUTO 1.6 1.2 - 3.8 10 3/uL TBH MONOCYTES ABSOLUTE AUTO 0.4 0.3 - 0.8 10 3/uL TBH TBH EO # 0.2 0.0 - 0.7 10 3/uL TBH BASOPHILS ABSOLUTE AUTO 0.0 0.0 - 0.1 10 3/uL TBH IMMATURE GRANULOCYTES ABS AUTO 0.02 0.00 - 0.03 10 3/uL TBH 08/11/2024 10:4 6 AM EDT 08/11/2024 10:55 AM EDT Narrative CLINISYNC - 08/11/2024 11:11 AM EDT us Cas Galicia MD CLINISYNC Final Result [facility] TB * TBH MICROALB CREAT RATIO RANDOM (08/11/2024 10:32 AM EDT) MICROALBUMIN URINE RANDOM <1.3 <=30.0 mg/dL TBH CREATININE URINE RANDOM 131.02 20.00 - 300.00 mg/dL TBH 08/11/2024 10:3 2 AM EDT 08/11/2024 10:54 AM EDT Narrative CLINISYNC - 08/11/2024 11:29 AM EDT us Cas Galicia MD CLINISYNC Final Result [facility] * SCANNED LABS (07/10/2024 10:35 AM EDT) us Halima Morris MD LAB CHG PERFORMABLES Final Res ult * MM TOMOSYNTHESIS DIAGNOSTIC BI (08/31/2023 1:39 PM EDT) Anatomical Region Laterality Modality Other 08/31/2023 1:39 PM EDT Narrative 08/31/2023 1:40 [place] [address] Mammography Report Signed Patient: VIJAYA TRAN MR#: [id number] : 1985 Acct:[id number] Age/Sex: 37 / F ADM Date: 08/31/23 Loc: MAMMO Attending Dr: Rubens Tim D.O. Ordering Physician: Rubens Tim D.O. Results: Date of Service: 08/31/23 Follow Up: Procedure(s): MM tomosynthesis diagnostic BI Accession Number(s): [id number] cc: Rubens Tim D.O.; Cas Galicia M.D. Patient Name: VIJAYA TRAN MR#: [id number] : 1985 Exam Date: 08/31/2023 Ordering Doctor: [...] cervical cancer at age 48. LOCATION: [facility] BREAST COMPOSITION: There are scattered areas of [...] By: Jonas Humphrey M.D. Signed By: 08/31/23 1340 DD/ 1339 TD/TT: Hydrator Operator: Procedure Note Radiology, Radiologist, - 08/31/2023 [place] [address] Mammography Report Signed Patient: VIJAYA TRAN [facility]#: [id number] : 1985Acct:[id number] Age/Sex: 37 / FADM Date: 08/31/23 Loc: MAMMO Attending Dr: Rubens Tim D.O. Ordering Physician: Rubens Tim D.O.Results: Date of Service: 08/31/23Follow Up: Procedure(s): MM tomosynthesis diagnostic BI Accession Number(s): [id number] cc: Rubens Tim D.O.; Cas Galicia M.D. Patient Name: VIJAYA TRAN MR#: [id number] : 1985 Exam Date: 08/31/2023 Ordering Doctor: [...] cervical cancer at age 48. LOCATION: [facility] BREAST COMPOSITION: There are scattered areas of [...] M.D. Signed By:08/31/23 1340 DD/ 1339 TD/TT: Hydrator Operator: Generic External Data Provider [facility] Final Result * Hemoglobin A1c (01/01/2023 12:58 PM EST) Blood Venous blood specimen / Unknown Cas Galicia MD LAB BLOOD ORDERABLES Final Resul t from Last 3 Months or Most Recently Relevant to Health Maintenance Insurance BS Member Subscriber Plan / Payer (Ef fective 2022-Present) Name:Vijaya Tran Member ID:[id number] Relation to Subscriber:Self Name:Vijaya Tran Subscriber ID:[id number] Payer ID:Not on file Type:Not on file Address: [address] Care Teams Senior Clinical Study Manager Relationship Specialty Start Date End Date Cas Galicia MD [address] [place] [address] PCP - General Family Medicine 04/09/23
--- OUTSIDE RECORDS SUMMARY | 2024-09-29 12:44 | XMS_ITS | Encounter Summary ---
Author Organization [facility] Address [address] [place] [address] Care Team Providers Care Solar Engineer Name Role Phone Cas Galicia MD Primary Care Provider [phone] Cas Galicia MD Unavailable Encounter Details Date Type Department Care Team (Late st Contact Info) Description 04/24/2024 Abstract [facility] [address] [place] [address] Kassie Coffman LPN Social History Tobacco Use [...] How often do you attend chur or sikhism services? Patient declined 04/08/2023 Do you belong to any clubs o r organizations such as hoahaoism groups, unions, fraternal or athletic groups, or [...] medical care, and heating? Somewhat hard 04/08/2023 [facility] - Occupational [...] place to sleep or slept in a half-way (including now)? Patient declined 04/08/2023 Comments No [...] EDT Office Visit [facility] [address] [place] [address] Rubens Tim DO [address] [facility] [place] [address] 02/11/2025 9:00 AM EST Office Visit [facility] [address] [place] [address] Cas Galicia MD [address] [place] [address] 07/08/2025 8:20 AM EDT Office Visit [facility] [address] [place] [address] Jodi Holden, PA [address] [place], [place] [phone] documented as of this encounter Visit Diagnoses Not on filedocumented in this encounter Care Teams Solar Engineer Relationship Specialty Start Date End Date Cas Galicia MD [address] [place] [address] PCP - General Family Medicine 04/09/23 Cas Galicia MD [address] [place] [address] PCP - [employer] 11/06/23 documented as of this encounter
--- OUTSIDE RECORDS SUMMARY | 2024-09-29 12:44 | XMS_ITS | Encounter Summary ---
Author Organization [facility] Address [address] [place] [address] Care Team Providers Care Customer Services Supervisor Name Role Phone Cas Galicia MD Primary Care Provider [phone] Sai Perez MD Unavailable [phone] Rubens Tim DO Unavailable [phone] Source Comments In the event this information is protected by the Federal Confidentiality of Alcohol and Drug AbusePatient Records regulations: The Federal rules restrict any use of the information to criminally investigate or prosecute any alcohol or drug abuse patient.[facility] Encounter Details Date Type Department Care Team (Late st Contact Info) Description 02/15/2022 [facility] [address] [place] [address] Provider, Ccf Referral to Wellness & Preventive Medicine for Nutrition Social History Tobacco Use Types Packs/Day Years [...] N ot on file 02/17/2022 Data from: https://www.neighborhoodatlas.medicine.[facility]/. Last address used for calculation [address] [...] Description 09/30/2024 9:15 AM EDT Office Visit [facility] [address] [place] [address] 1 year follow up 09/30/2024 9:30 AM EDT Visit (SP) Office Hematology/Oncology [address] [place] [address] Shweta Masters APRN.[address] [place] [address] 1 year follow up documented as of this encounter Visit Diagnoses Not on filedocumented in this encounter Care Teams Customer Services Supervisor Relationship Specialty Start Date End Date Cas Galicia MD PCP - General Family Medicine 02/20/14 Sai Perez MD [address] [facility] [place] [address] Primary Staff Physician Cardiology 07/21/21 Rubens Tim DO [address] [place] [address] [place] [address] Referring Hand Scraper 08/05/21 documented as of this encounter
--- OUTSIDE RECORDS SUMMARY | 2024-09-29 12:44 | XMS_ITS | Encounter Summary ---
Author Organization [facility] Address [id number] [address] [place] [address] Care Team Providers Care Guzzler Builder Name Role Phone Cas Galicia MD Primary Care Provider [phone] Reason for Visit * Reason Comments Med Change Request Encounter Details Date Type Department Care Team (Late st Contact Info) Description 08/24/2021 Refill [facility] [address] [facility] [address] [place] [address] Stella Flowers, MANAGER CATH LAB-INDUSTRIAL COMMERCIAL GROUNDSKEEPER [address] [facility] [address] [place] [address] Migraine without aura and without status migrainosus, not intractable Social History Tobacco Use Types Packs/Day Years [...] Description 11/24/2024 10:00 AM EDT Office Visit [facility] Adult Endocrinology, A Department of [facility] [address] [address] Akila Ballard MD [address] [address] 12/26/2024 10:30 AM EST Office Visit [facility] Neurology, A Department of [facility] [address] [facility] [place] [address] [address] Stella Flowers, MANAGER CATH LAB-INDUSTRIAL COMMERCIAL GROUNDSKEEPER [address] [address] documented as of this encounter Visit Diagnoses Diagnosis Migraine without aura and without status migrainosus, not intractable documented in this encounter Additional Health Concerns Assessment Noted Time PHQ-9 Depression Total Score: 17 04/2 022 10:30 AM EDT documented as of this encounter Care Teams Guzzler Builder Relationship Specialty Start Date End Date Cas Galicia MD PCP - General Family Medicine 11/18/20 documented as of this encounter
--- OUTSIDE RECORDS SUMMARY | 2024-09-29 12:44 | XMS_ITS | Encounter Summary ---
Author Organization [facility] Address [address] [facility] [place] [address] Care Team Providers Care Natural Gas Plant Technician Name Role Phone Cas Galicia MD Primary Care Provider + Reason for Visit * Reason Comments Other Encounter Details Date Type Department Care Team (Late Contact Info) Description 03/13/2014 Refill [facility] [address] [place] [address] Loraine Morgan DO [address] [place] [address] Other Social History Tobacco Use Types Packs/Day Years [...] Department Care Team (Late Contact Info) Description 03/19/2025 9:45 AM EST Office Visit [facility] [place] [id number] David Mcclure MD [facility] [address] [place] [address] KATELIN; 6 mth follow up with Samuel Vega documented as of this encounter Visit Diagnoses Not on filedocumented in this encounter Additional Health Concerns Infection Onset Date Last Indicated Resolved Time COVID-19 (Rule Out) 01/07/2022 01/07/2022 01/08/20 22 1:10 AM EST COVID-19 (Rule Out) 01/08/2022 01/08/2022 01/10/20 22 6:32 PM EST COVID-19 (Rule Out) 12/18/2022 12/18/2022 12/19/19 23 5:08 PM EST documented as of this encounter Care Teams Natural Gas Plant Technician Relationship Specialty Start Date End Date Cas Galicia MD PCP - General 09/04/11 documented as of this encounter
--- OUTSIDE RECORDS SUMMARY | 2024-09-29 12:44 | XMS_ITS | Encounter Summary ---
Author Organization [facility] Address [address] [place] [address] Care Team Providers Care Rn Clinical Review Name Role Phone Cas Galicia MD Primary Care Provider [phone] Cas Galicia MD Unavailable Encounter Details Date Type Department Care Team (Late st Contact Info) Description 02/21/2024 Orders Only [facility] [address] [place] [address] Cas Galicia MD [address] [place] [address] Social History Tobacco Use Types Packs/Day Years [...] often do you attend chur ch or islam services? Patient declined 04/08/2023 Do you belong [...] medical care, and heating? Somewhat hard 04/08/2023 [facility] [place] of Occupat ional Health - Occupational Stress [...] place to sleep or slept in a care home (including now)? Patient declined 04/08/2023 Comments No [...] [address] [facility] [place] [address] Rubens Tim DO [address] [facility] [place] [address] 02/11/2025 9:00 AM EST Office Visit [facility] [address] [place] [address] Cas Galicia MD [address] [place] [address] 07/08/2025 8:20 AM EDT Office Visit [facility] [address] [place] [address] Jodi Holden, PONCE [address] [place] [address] documented as of this encounter Procedures Procedure Name Priority Date/Time Associated Diagnosis Comments CT ANGIO CHEST W CONT(INCL WO) Routine 02/21/2024 9:47 AM EST documented in this encounter Results * CT ANGIO CHEST W CONT(INCL WO) (02/21/2024 9:47 AM EST) Anatomical Region Laterality Modality Radiographic Naina ging Cas Galicia MD IMG XR PROCEDURES Final Result documented in this encounter Visit Diagnoses Not on filedocumented in this encounter Care Teams Rn Clinical Review Relationship Specialty Start Date End Date Cas Galicia MD [address] [place] [address] PCP - General Family Medicine 04/09/23 Cas Galicia MD [address] [place] [address] PCP - Davie Goncalves 11/06/23 documented as of this encounter
--- OUTSIDE RECORDS SUMMARY | 2024-09-29 12:44 | XMS_ITS | Encounter Summary ---
Author Organization [facility] Address [address] [place] [address] Care Team Providers Care Revenue Collector Name Role Phone Cas Galicia MD Primary Care Provider [phone] Encounter Details Date Type Department Care Team (Late st Contact Info) Description 09/25/2024 [facility]amboo [facility] [address] [place] [address] Cas Galicia MD [address] [place] [address] Social History Tobacco Use Types Packs/Day Years [...] How often do you attend chur or anabaptist services? Patient declined 08/08/2024 Do you belong to any clubs o r organizations such as episcopalian groups, unions, fraternal or athletic groups, or [...] medical care, and heating? Somewhat hard 08/08/2024 [facility] of Occupat ional Health - Occupational [...] a chcf (including now)? Patient declined 04/08/2023 Housing Stability [...] any time in the past 12 m [facility], were you homeless or living in a chcf (including now)? No 08/08/2024 Comments No Sex [...] EDT Office Visit [facility] [address] [place] [address] Rubens Tim DO [address] [facility] [address] [place] [place], [place] [address] 02/11/2025 9:00 AM EST Office Visit [facility] [address] [place] [address] Cas Galicia MD [address] [place] [address] 07/08/2025 8:20 AM EDT Office Visit [facility] [address] [place] [address] Jodi Holden, PA [address] [place] [address] documented as of this encounter Visit Diagnoses Not on filedocumented in this encounter Care Teams Revenue Collector Relationship Specialty Start Date End Date Cas Galicia MD [address] [place] [address] PCP - General Family Medicine 04/09/23 documented as of this encounter
--- OUTSIDE RECORDS SUMMARY | 2024-09-29 12:44 | XMS_ITS | Encounter Summary ---
Author Organization [facility] Address [id number] [address] [place] [address] Care Team Providers Care Microwave Radio Technician Name Role Phone Cas Galicia MD Primary Care Provider [phone] Encounter Details Date Type Department Care Team (Late Contact Info) Description 02/20/2022 Telephone [facility] [address] [phone] Akila Ballard MD [address] [facility] [address] [place] [address] Social History Tobacco Use Types Packs/Day Years [...] Description 11/24/2024 10:00 AM EDT Office Visit [facility] Adult Endocrinology, A Department of [facility] [address] [address] Akila Ballard MD [address] [address] 12/26/2024 10:30 AM EST Office Visit [facility] Neurology, A Department of [facility] [address] [address] Stella Flowers APRN-FINE UNHAIRER [address] [address] documented as of this encounter Visit Diagnoses Not on filedocumented in this encounter Additional Health Concerns Assessment Noted Time PHQ-9 Depression Total Score: 0 10/06/19 22 10:43 AM EDT documented as of this encounter Care Teams Microwave Radio Technician Relationship Specialty Start Date End Date Cas Galicia MD PCP - General Family Medicine 11/18/20 documented as of this encounter
--- OUTSIDE RECORDS SUMMARY | 2024-09-29 12:44 | XMS_ITS | Encounter Summary ---
Author Organization [facility] Address [address] [place] [address] Care Team Providers Care Monorail Operator Name Role Phone Cas Galicia MD Primary Care Provider [phone] Cas Galicia MD Unavailable Encounter Details Date Type Department Care Team (Late st Contact Info) Description 05/15/2024 Abstract [facility] [address] [facility] [address] Kassie Coffman LPN Social History Tobacco Use [...] How often do you attend chur or congregation services? Patient declined 04/08/2023 Do you belong to any clubs o r organizations such as mosque groups, unions, fraternal or athletic groups, or [...] medical care, and heating? Somewhat hard 04/08/2023 [facility] of Occupat ional Health - Occupational [...] place to sleep or slept in a penitentiary (including now)? Patient declined 04/08/2023 Comments No [...] EDT Office Visit [facility] [address] [facility] [address] Rubens Tim DO [address] [facility] [place] [address] 02/11/2025 9:00 AM EST Office Visit [facility] [address] [place] [address] Cas Galicia MD [address] [place] [address] 07/08/2025 8:20 AM EDT Office Visit [facility] [address] [place] [address] Jodi Holden, PA [address] [place], [place] [address] documented as of this encounter Visit Diagnoses Not on filedocumented in this encounter Care Teams Monorail Operator Relationship Specialty Start Date End Date Cas Galicia MD [address] [place] [address] PCP - General Family Medicine 04/09/23 Cas Galicia MD [address] [place] [address] PCP - [place] [employer] 11/06/23 documented as of this encounter
--- OUTSIDE RECORDS SUMMARY | 2024-09-29 12:44 | XMS_ITS | Encounter Summary ---
Author Organization [facility] Address [address] [place] [address] Care Team Providers Care Search Lead Name Role Phone Cas Galicia MD Primary Care Provider [phone] Sai Perez MD Unavailable [phone] Rubens Tim DO Unavailable [phone] Source Comments In the event this information is protected by the Federal Confidentiality of Alcohol and Drug AbusePatient Records regulations: The Federal rules restrict any use of the information to criminally investigate or prosecute any alcohol or drug abuse patient.[facility] Encounter Details Date Type Department Care Team (Late st Contact Info) Description 06/03/2021 Patient Msg Neurology [address] [place] [address] Peter Knight APRN.METAL EXPEDITER NO FORWARDING ADDRESS Results Social History Tobacco Use Types Packs/Day Years [...] N ot on file 09/06/2020 Data from: https://www.neighborhoodatlas.medicine.[facility]/. Last address used for calculation Not [...] Description 09/30/2024 9:15 AM EDT Office Visit [facility] [address] [place] [address] [place] [address] 1 year follow up 09/30/2024 9:30 AM EDT Visit (SP) Office Hematology/Oncology [address] [address] Shweta Masters APRN.METAL EXPEDITER [address] [address] 1 year follow up documented as of this encounter Visit Diagnoses Not on filedocumented in this encounter Care Teams Search Lead Relationship Specialty Start Date End Date Cas Galicia MD PCP - General Family Medicine 02/20/14 Sai Perez MD [address] [facility] [place] [address] Primary Staff Physician Cardiology 07/21/21 Rubens Tim DO [address] [place] [address] [place] [address] Referring Collaborative Teacher 08/05/21 documented as of this encounter
--- OUTSIDE RECORDS SUMMARY | 2024-09-29 12:44 | XMS_ITS | Encounter Summary ---
Author Organization [facility] Address [id number] [address] [place] [address] Care Team Providers Care Peanut Butter Maker Name Role Phone Cas Galicia MD Primary Care Provider [phone] Encounter Details Date Type Department Care Team (Late st Contact Info) Description 06/17/[address] [facility] [address] [place] [address] Ricky Anaya MD [address] [place] [address] Pre-op testing; Contact with and (suspected) exposure to covid-19 Social History Tobacco Use Types Packs/Day Years [...] suspected to have Coronavirus/COVID-19? No / Unsure 06/20/2021 11:54 AM EDT documented as of this encounter Plan of Treatment Upcoming Encounters Date Type Department Care Team (Late st Contact Info) Description 11/24/2024 10:00 AM EDT Office Visit [facility] Adult Endocrinology, A Department of [facility] [address] [address] Akila Ballard MD [address] [address] 12/26/2024 10:30 AM EST Office Visit [facility] Neurology, A Department of [facility] [address] [address] Stella Flowers APRN-DIGITIZER OPERATOR [address] [address] documented as of this encounter Visit Diagnoses Diagnosis Pre-op testing Unspecified pre-operative examination Contact with and (suspected) exposure to covid-19 documented in this encounter Additional Health Concerns Assessment Noted Time PHQ-9 Depression Total Score: 17 04/2 022 10:30 AM EDT documented as of this encounter Care Teams Peanut Butter Maker Relationship Specialty Start Date End Date Cas Galicia MD PCP - General Family Medicine 11/18/20 documented as of this encounter
--- OUTSIDE RECORDS SUMMARY | 2024-09-29 12:44 | XMS_ITS | Encounter Summary ---
Author Organization [facility] Address [address] [place] [address] Care Team Providers Care Bulwark Carpenter Name Role Phone Cas Galicia MD Primary Care Provider [phone] Encounter Details Date Type Department Care Team (Late st Contact Info) Description 07/10/2024 Orders Only [facility] [address] [place] [address] Halima Morris MD [address] [place] [address] Social History Tobacco Use Types Packs/Day Years [...] often do you attend chur ch or adventism services? Patient declined 04/08/2023 Do you belong to any clubs o r organizations such as anglican groups, unions, fraternal or athletic groups, or [...] medical care, and heating? Somewhat hard 04/08/2023 [facility] of Occupat ional Health - Occupational [...] place to sleep or slept in a halfway (including now)? Patient declined 04/08/2023 Comments No [...] EDT Office Visit [facility] [address] [facility] [place] [address] Rubens Tim DO [address] [facility] [place] [address] 02/11/2025 9:00 AM EST Office Visit [facility] [address] [place] [address] Cas Galicia MD [address] [place] [address] 07/08/2025 8:20 AM EDT Office Visit [facility] [address] [place] [address] Jodi [place]en, PA [address] [place] [address] documented as of this encounter Procedures Procedure Name Priority Date/Time Associated Diagnosis Comments SCANNED LABS Routine 07/10/2024 10:35 AM EDT documented in this encounter Results * SCANNED LABS (07/10/2024 10:35 AM EDT) us Halima Morris MD LAB CHG PERFORMABLES Final Res ult documented in this encounter Visit Diagnoses Not on filedocumented in this encounter Care Teams Bulwark Carpenter Relationship Specialty Start Date End Date Cas Galicia MD [address] [place] [address] PCP - General Family Medicine 04/09/23 documented as of this encounter
--- OUTSIDE RECORDS SUMMARY | 2024-09-29 12:44 | XMS_ITS | Encounter Summary ---
Author Organization [facility] Address [address] [place] [address] Care Team Providers Care Patrol Lady Name Role Phone Cas Galicia MD Primary Care Provider [phone] Reason for Visit * Reason Onset Date Comments Med Refill 05/18/2024 Encounter Details Date Type Department Care Team (Late st Contact Info) Description 05/18/2024 Telephone [facility] [address] [place] [address] Cas Galicia MD [address] [place] [address] Med Refill Social History Tobacco Use Types Packs/Day Years [...] often do you attend chur ch or voodoo services? Patient declined 04/08/2023 Do you belong [...] medical care, and heating? Somewhat hard 04/08/2023 [facility] [place] of Occupat ional Health - Occupational Stress [...] on file documented as of this encounter Miscellaneous Notes * Telephone Encounter - Cas Galicia MD - 05/19/2024 11:49 AM EDT New script sent. * Telephone Encounter - TERRANCE SAMANIEGO - 05/19/2024 9:17 AM EDT Patient sent message, states insurance is no longer covering onglyza, needs new script for [email or web address].clm documented in this encounter Plan of Treatment Upcoming Encounters Date Type Department Care Team (Late st Contact Info) Description 12/01/2024 10:40 AM EDT Office Visit [facility] [address] [facility] [place] [address] Rubens Tim DO [address] [facility] [place] [address] 02/11/2025 9:00 AM EST Office Visit [facility] [address] [place] [address] Cas Galicia MD [address] [place] [address] 07/08/2025 8:20 AM EDT Office Visit [facility] [address] [place] [address] Jodi Holden PA [address] [place] [address] documented as of this encounter Visit Diagnoses Diagnosis Type 2 diabetes mellitus with hyperglycemia, without long-term current use of insulin (HCC) documented in this encounter Care Teams Patrol Lady Relationship Specialty Start Date End Date Cas Galicia MD [address] [place] [address] PCP - General Family Medicine 04/09/23 documented as of this encounter
--- OUTSIDE RECORDS SUMMARY | 2024-09-29 12:44 | XMS_ITS | Encounter Summary ---
Author Organization [facility] tem Address [id number] [address] [place] [address] Care Team Providers Care Can Reconditioner Name Role Phone Cas Galicia MD Primary Care Provider [phone] Encounter Details Date Type Department Care Team (Late st Contact Info) Description 03/11/2021 Orders Only [facility] [address] [facility] [address] [place] [phone] Sasha Fernandez CMA Memory difficulties; Brain fog Social History Tobacco Use Types Packs/Day Years [...] have Coronavirus / COVID-19? No / Unsure 03/14/2021 6:36 AM EST documented as of this encounter Plan of Treatment Upcoming Encounters Date Type Department Care Team (Late st Contact Info) Description 11/24/2024 10:00 AM EDT Office Visit [facility] Adult Endocrinology, A Department of [facility] [address] [phone] Akila Ballard MD [address] [address] 12/26/2024 10:30 AM EST Office Visit [facility] Neurology, A Department of [facility] [address] [address] Stella Flowers, TOOL TROUBLE SHOOTER-TIP FIXER [address] [address] documented as of this encounter Procedures Procedure Name Priority Date/Time Associated Diagnosis Comments METHYLMALONIC ACID SCREEN Routine 03/03/2021 Memory difficulties Brain fog CBC WITH AUTO DIFFERENTIAL Routine 03/03/2021 Memory difficulties Brain fog DRVVT Routine 03/03/2021 Memory difficulties Brain fog PRICILA SCREEN W/ REFLEX Routine 03/03/2021 Memory difficulties Brain fog PROTEIN ELECTROPHORESIS, SERUM Routine 03/03/2021 Memory difficulties Brain fog HOMOCYSTEINE, PLASMA Routine 03/03/2021 Memory difficulties Brain fog FOLATE Routine 03/03/2021 Memory difficulties Brain fog VITAMIN B12 Routine 03/03/2021 Memory difficulties Brain fog documented in this encounter Results * PRICILA Screen w/ Reflex (03/03/2021) Pricila screen negative SUNQUEST 03/03/2021 Stella Flowers TOOL TROUBLE SHOOTER-[facility] LAB BLOOD ORDERABLES Final Result SUNQUEST * Protein electrophoresis, serum (03/03/2021) Albumin 4.6 SUNQUEST Alpha 1 0.3 SUNQUEST Alpha 2 9 SUNQUEST Gamma Globulin 0.8 SUNQUEST Total Protein 7.1 SUNQUEST 03/03/2021 Stella Flowers TOOL TROUBLE SHOOTER-TIP FIXER LAB BLOOD ORDERABLES Final Result Performing Organization Address [facility]/RUST de Phone Number SUNQUEST * DRVVT (03/03/2021) Dilute Viper Venom Time 39 SUNQUEST 03/03/2021 Stella Flowers TOOL TROUBLE SHOOTER-[facility] LAB BLOOD ORDERABLES Final Result Performing Organization Address City/[facility]/ZIP Co de Phone Number SUNQUEST * Homocysteine total (03/03/2021) Homocysteine 8.74 SUNQUEST 03/03/2021 Result [facility] Stella Flowers TOOL TROUBLE SHOOTER-[facility] LAB BLOOD ORDERABLES Final Result Performing Organization Address [facility]/ZIP Co de Phone Number SUNQUEST * Methylmalonic acid screen (03/03/2021) Methylmalonic Acid 0.30 SUNQUEST 03/03/2021 Stella Flowers TOOL TROUBLE SHOOTER-[facility] LAB BLOOD ORDERABLES Final Result SUNQUEST * CBC auto differential (03/03/2021) External Wbc Count 6.5 SUNQUEST External Rbc Count 5.22 SUNQUEST External Hemoglobin 15.5 SUNQUEST External Hematocrit Hct 44.7 SUNQUEST External Mcv 86 SUNQUEST External MCH 29.6 SUNQUEST External Mchc 34.6 SUNQUEST External Rdw 12.3 SUNQUEST External Platelet Count 276 SUNQUEST External Mpv 8.0 SUNQUEST External Absolute Neutrophils 4.8 SUNQUEST External Absolute Lymphocyte 1.3 SUNQUEST External Absolute Monocytes 0.3 SUNQUEST External Absolute Basophil 0.1 SUNQUEST 03/03/2021 Stella Flowers TOOL TROUBLE SHOOTER-TIP FIXER LAB BLOOD ORDERABLES Final Result SUNQUEST * Folate Serum (03/03/2021) Folate >25.0 SUNQUEST 03/03/2021 Stella Flowers TOOL TROUBLE SHOOTER-TIP FIXER LAB BLOOD ORDERABLES Final Result Performing Organization Address [facility]/ZIP Co de Phone Number SUNQUEST * Vitamin B12 (03/03/2021) Vitamin B-12 184 SUNQUEST 03/03/2021 Stella Flowers TOOL TROUBLE SHOOTER-[facility] LAB BLOOD ORDERABLES Final Result Performing Organization Address City/[facility]/ZIP Co de Phone Number SUNQUEST documented in this encounter Visit Diagnoses Diagnosis Memory difficulties Memory loss Brain fog documented in this encounter Additional Health Concerns Assessment Noted Time PHQ-9 Depression Total Score: 16 022 1:06 PM EST documented as of this encounter Care Teams Can Reconditioner Relationship Specialty Start Date End Date Cas Galicia MD PCP - General Family Medicine 11/18/20 documented as of this encounter
--- OUTSIDE RECORDS SUMMARY | 2024-09-29 12:45 | XMS_ITS | Encounter Summary ---
Author Organization [facility] Address [address] [place] [address] Care Team Providers Care Casing Sewer Name Role Phone Cas Galicia MD Primary Care Provider [phone] Sai Perez MD Unavailable [phone] Rubens Tim DO Unavailable [phone] Source Comments In the event this information is protected by the Federal Confidentiality of Alcohol and Drug AbusePatient Records regulations: The Federal rules restrict any use of the information to criminally investigate or prosecute any alcohol or drug abuse patient.[facility] Encounter Details Date Type Department Care Team (Late st Contact Info) Description 08/30/2021 Patient [facility] [address] [place] [address] Provider, Ccf Referral to Wellness & Preventive Medicine Social History Tobacco Use Types Packs/Day Years Used Date Smoking Tobacco: Never Smokeless Tobacco: Never Alcohol Use Standard Drinks/Week Comments Not Currently 0 (1 standard drink = 0.6 oz pur e alcohol) PHQ-2 Answer Date Recorded PHQ-2 score 2 07/29/2021 Area Deprivation Index Answer Date Aramis rded National Score (1-100), lower number is lower ri sk 73 08/15/2021 State Score (1-10), lower number is lower risk N ot on file 08/15/2021 Data from: https://www.neighborhoodatlas.medicine.[facility]/. Last address used for calculation [address] [...] suspected to have Coronavirus/COVID-19? No / Unsure 08/19/2021 12:47 PM EDT documented as of this encounter [...] Description 09/30/2024 9:15 AM EDT Office Visit [facility] [address] [place] [address] [place] [address] 1 year follow up 09/30/2024 9:30 AM EDT Visit (SP) Office Hematology/Oncology [address] [address] Shweta Masters APRN.TEXTBOOK ASSOCIATE [address] [address] 1 year follow up documented as of this encounter Visit Diagnoses Not on filedocumented in this encounter Care Teams Casing Sewer Relationship Specialty Start Date End Date Cas Galicia MD PCP - General Family Medicine 02/20/14 Sai Perez MD [address] [place] [address] Primary Staff Physician Cardiology 07/21/21 Rubens Tim DO [address] [place] [address] [place] [address] Referring Surface Plate Finisher 08/05/21 documented as of this encounter
--- OUTSIDE RECORDS SUMMARY | 2024-09-29 12:45 | XMS_ITS | Encounter Summary ---
Author Organization [facility] Address [address] [place] [address] Care Team Providers Care Heavy Lift Rigger Name Role Phone Cas Galicia MD Primary Care Provider [phone] Encounter Details Date Type Department Care Team (Late st Contact Info) Description 08/07/2024 Orders Only [facility] [address] [place] [phone] Halima Morris MD [address] [place] [address] Social History Tobacco Use Types [...] Answer Date Recorded Patient Health Questionnaire-2 Score 2 10/10/2023 Exercise Vital Sign Answer Date Recorde d On average, how many days pe r week do you engage in moderate to strenuous exercise (like a brisk walk)? 7 days 07/21/2022 On average, how many minutes do you engage in exercise at this level? 30 min 07/21/2022 [place] Safety & Environment Answer Date Rec orded [...] Date/Time Associated Diagnosis Comments CARDIAC DEVICE CHECK - REMOTE - LOOP RECORDER (ILR) Routine 08/07/2024 12:00 AM EDT documented in this encounter Results * Cardiac device check - Remote loop recorder (ILR) (08/07/2024 12:00 AM EDT) Anatomical Region Laterality Modality Other 08/07/2024 Halima Morris MD CV IMPLANTABLE CARDIAC DEVICE PROCEDURES Final Result documented in this encounter Visit Diagnoses Not on filedocumented in this encounter Care Teams Heavy Lift Rigger Relationship Specialty Start Date End Date Cas Galicia MD [address] [place] [address] PCP - General 02/17/22 documented as of this encounter
--- OUTSIDE RECORDS SUMMARY | 2024-09-29 12:45 | XMS_ITS | Encounter Summary ---
Author Organization [facility] Address [address] [place] [address] Care Team Providers Care Advertising Editor Name Role Phone Cas Galicia MD Primary Care Provider [phone] Cas Galicia MD Primary Care Provider [phone] Cas Galicia MD Unavailable Cas Galicia MD Unavailable Encounter Details Date Type Department Care Team (Late st Contact Info) Description 07/06/2022 Abstract [facility] [address] [place] [phone] Jodi Holden PA [address] [facility] [address] [place] [address] Social History Tobacco Use Types Packs/Day Years Used Date Smoking Tobacco: Never Tobacco Cessation:Counseling Given: Not Answered Alcohol Use Standard Drinks/Week Comments Never 0 (1 standard drink = 0.6 oz pur e alcohol) Comments Unknown Sex and Gender Information Value Date Recorded Sex Assigned at Not on file Legal Sex Female 6:40 PM EDT Gender Identity Not on file Sexual Orientation Not on file documented as of this encounter Plan of Treatment Upcoming Encounters Date Type Department Care Team (Late Contact Info) Description 12/01/2024 10:40 AM EDT Office Visit [facility] [address] [facility] [place] [phone] Rubens Tim DO [address] [place] [address] 02/11/2025 9:00 AM EST Office Visit [facility] [address] [place] [phone] Cas Galicia MD [address] [place] [phone] 07/08/2025 8:20 AM EDT Office Visit [facility] [address] [place] [phone] Jodi Holden, PA [address] [place] [address] documented as of this encounter Visit Diagnoses Not on filedocumented in this encounter Care Teams Advertising Editor Relationship Specialty Start Date End Date Cas Galicia MD PCP - General Family Medicine 12/06/22 04/08/23 Cas Galicia MD [address] [place] [address] PCP - General Family Medicine 04/09/23 Cas Galicia MD [address] [place] [phone] PCP - [place] [employer] 06/06/23 Cas Galicia MD [address] [place] [phone] PCP - [place] [employer] 11/06/23 documented as of this encounter
--- OUTSIDE RECORDS SUMMARY | 2024-09-29 12:45 | XMS_ITS | Encounter Summary ---
Author [facility] Address [id number] [address] [place] [address] Care Team Providers Care Investment Specialist Name Role Phone Cas Galicia MD Primary Care Provider [phone] Reason for Visit * Reason Onset Date Comments Med Refill 09/22/2024 Encounter Details Date Type Department Care Team (Late st Contact Info) Description 09/22/2024 Refill [facility], A Department of [facility] [address] [employer] [address] [address] Alina Garcia CMA Social History Tobacco Use Types Packs/Day Years Used Date Smoking Tobacco: Never Smokeless Tobacco: Never Alcohol Use Standard Drinks/Week Comments Not Currently 0 (1 standard drink = 0.6 oz pur e alcohol) PHQ-2 Answer Date Recorded Total Score 0 01/04/2023 Childcare Answer Date Recorded Childcare Unknown 07/17/2018 Employment Answer Date Recorded Employment Unknown 07/17/2018 Hunger Screening Answer Date Recorded Within the past 12 months we worried whether our food would run out before we got money to buy more. Never True 11/22/2023 Within the past 12 months th e food we bought just didn't last and we didn't have money to get more. Never True 11/22/2023 Purpose - Life Answer Date Recorded Purpose [...] Description 11/24/2024 10:00 AM EDT Office Visit [facility] Adult Endocrinology, A Department of [facility] [address] [address] Akila Ballard MD [address] [address] 12/26/2024 10:30 AM EST Office Visit [facility] Neurology, A Department of [facility] [address] [address] Stella Flowers, LIO-ASH KIER BOILER [address] [address] documented as of this encounter Visit Diagnoses Not on filedocumented in this encounter Additional Health Concerns Assessment Noted Time PHQ-9 Depression Total Score: 0 01/05/20 23 3:26 PM EST documented as of this encounter Care Teams Investment Specialist Relationship Specialty Start Date End Date Cas Galicia MD PCP - General Family Medicine 11/18/20 documented as of this encounter
--- OUTSIDE RECORDS SUMMARY | 2024-09-29 12:45 | XMS_ITS | Encounter Summary ---
Author Organization [facility] Address [address] [place] [address] Care Team Providers Care General Passenger Agent Name Role Phone Cas Galicia MD Primary Care Provider [phone] Sai Perez MD Unavailable [phone] Rubens Tim DO Unavailable [phone] Source Comments In the event this information is protected by the Federal Confidentiality of Alcohol and Drug AbusePatient Records regulations: The Federal rules restrict any use of the information to criminally investigate or prosecute any alcohol or drug abuse patient.[facility] Encounter Details Date Type Department Care Team (Late st Contact Info) Description 07/29/2021 Patient Msg [facility] [address] [place] [id number] Judith Valdes PSYD [address] [place] [address] Scheduling Social History Tobacco Use Types Packs/Day Years Used Date Smoking Tobacco: Never Smokeless Tobacco: Never Alcohol Use Standard Drinks/Week Comments Not Currently 0 (1 standard drink = 0.6 oz pur e alcohol) PHQ-2 Answer Date Recorded PHQ-2 score 2 07/29/2021 Area Deprivation Index Answer Date Aramis rded National Score (1-100), lower number is lower ri sk 73 07/01/2021 State Score (1-10), lower number is lower risk N ot on file 07/01/2021 Data from: https://www.neighborhoodatlas.medicine.[facility]/. Last address used for calculation [address] 07/01/2021 Comments No Sex and Gender Information Value Date Recorded Sex Assigned at Female 09/26/2020 5:05 PM EDT Legal Sex Female 4:12 PM EST Gender Identity Female 09/26/2020 5:05 PM EDT Sexual Orientation Straight 09/26/2020 5: 05 PM EDT COVID-19 Exposure Response Date Recorded In the last 10 days, have kyra u been in contact with someone who was confirmed or suspected to have Coronavirus/COVID-19? No / Unsure 08/01/2021 1:23 PM EDT documented as of this encounter [...] of Assessment Author No 02/23/2014 2:04 PM nAg Page MA * Do you have difficulty [...] Description 09/30/2024 9:15 AM EDT Office Visit [facility] [address] [place] [address] 1 year follow up 09/30/2024 9:30 AM EDT Visit (SP) Office Hematology/Oncology [address] [facility] [place] [address] Shweta Masters APRN.AGENT BROKER [address] [facility] [place] [address] 1 year follow up documented as of this encounter Visit Diagnoses Not on filedocumented in this encounter Care Teams General Passenger Agent Relationship Specialty Start Date End Date Cas Galicia MD PCP - General Family Medicine 02/20/14 Sai Perez MD [address] [place] [address] Primary Staff Physician Cardiology 07/21/21 Rubens Tim DO [address] [place] [address] [place] [address] Referring Senior Quantity Surveyor 08/05/21 documented as of this encounter
--- OUTSIDE RECORDS SUMMARY | 2024-09-29 12:45 | XMS_ITS | Encounter Summary ---
Author Organization [facility] Address [address] [place] [address] Care Team Providers Care Bag Bailer Name Role Phone Cas Galicia MD Primary Care Provider [phone] Sai Perez MD Unavailable [phone] Rubens Tim DO Unavailable [phone] Source Comments In the event this information is protected by the Federal Confidentiality of Alcohol and Drug AbusePatient Records regulations: The Federal rules restrict any use of the information to criminally investigate or prosecute any alcohol or drug abuse patient.[facility] Encounter Details Date Type Department Care Team (Late st Contact Info) Description 08/31/2021 Get Medical Advice [facility] [address] [place] [address] Leno Bright MD [facility] [address] [place] [address] Nutrition Visits Social History Tobacco Use Types Packs/Day Years [...] N ot on file 08/15/2021 Data from: https://www.neighborhoodatlas.medicine.[facility]/. Last address used for calculation [...] Description 09/30/2024 9:15 AM EDT Office Visit [facility] [address] [place] [address] 1 year follow up 09/30/2024 9:30 AM EDT Visit (SP) Office Hematology/Oncology [address] [facility] [place] [address] Shweta Masters APRN.PSYCHIATRY ADULT PHYSICIAN [address] [facility] [address] [place] [address] 1 year follow up documented as of this encounter Visit Diagnoses Not on filedocumented in this encounter Care Teams Bag Bailer Relationship Specialty Start Date End Date Cas Galicia MD PCP - General Family Medicine 02/20/14 Sai Perez MD [address] [facility] [address] [address] Primary Staff Physician Cardiology 07/21/21 Rubens Tim DO [address] [place] [address] [place] [address] Referring Regional Recruiter 08/05/21 documented as of this encounter
--- OUTSIDE RECORDS SUMMARY | 2024-09-29 12:45 | XMS_ITS | Encounter Summary ---
Author Organization [facility] Address [address] [place] [address] Care Team Providers Care Manager Filter Name Role Phone Cas Galicia MD Primary Care Provider [phone] Encounter Details Date Type Department Care Team (Late st Contact Info) Description 09/24/2024 Orders Only [facility] Cardiology Clinic [address] [place] [phone] Halima Morris MD [address] [place] [address] Social History Tobacco Use Types [...] - REMOTE - LOOP RECORDER (ILR) Routine 09/24/2024 12:00 AM EDT documented in this encounter Results * Cardiac device check - Remote loop recorder (ILR) (09/24/2024 12:00 AM EDT) Anatomical Region Laterality Modality Other 09/24/2024 Halima Morris MD CV IMPLANTABLE CARDIAC DEVICE PROCEDURES Final Result documented in this encounter Visit Diagnoses Not on filedocumented in this encounter Care Teams Manager Filter Relationship Specialty Start Date End Date Cas Galicia MD [address] [place] [address] PCP - General 02/17/22 documented as of this encounter
--- OUTSIDE RECORDS SUMMARY | 2024-09-29 12:45 | XMS_ITS | Encounter Summary ---
Author Organization [facility] tem Address [id number] [address] [place] [address] Care Team Providers Care Multimedia Instructional Designer Name Role Phone Cas Galicia MD Primary Care Provider [phone] Reason for Visit * Reason Onset Date Comments Med Refill 09/15/2024 Encounter Details Date Type Department Care Team (Late st Contact Info) Description 09/15/2024 Refill [facility], A Department of [facility] [address] [address] Stella Flowers, [facility] [address] [address] Migraine without aura and without status [...] 10:00 AM EDT Office Visit [facility] Adult Endocrinology, A Department of [facility] [address] [address] Akila Ballard MD [address] [address] 12/26/2024 10:30 AM EST Office Visit [facility] Neurology, A Department of [facility] [address] [address] Stella Flowers, DOCUMENTATION ENGINEER-ESTIMATING MANAGER [address] [address] documented as of this encounter Visit Diagnoses Diagnosis Migraine without aura and without status migrainosus, not intractable documented in this encounter Additional Health Concerns Assessment Noted Time PHQ-9 Depression Total Score: 0 01/05/20 23 3:26 PM EST documented as of this encounter Care Teams Multimedia Instructional Designer Relationship Specialty Start Date End Date Csa Galicia MD PCP - General Family Medicine 11/18/20 documented as of this encounter
--- OUTSIDE RECORDS SUMMARY | 2024-09-29 12:45 | XMS_ITS | Encounter Summary ---
Author Organization [facility] Address [address] [place] [address] Care Team Providers Care Retail Service Lead Merchandiser Name Role Phone Cas Galicia MD Primary Care Provider [phone] Sai Perez MD Unavailable [phone] Rubens Tim DO Unavailable [phone] Source Comments In the event this information is protected by the Federal Confidentiality of Alcohol and Drug AbusePatient Records regulations: The Federal rules restrict any use of the information to criminally investigate or prosecute any alcohol or drug abuse patient.[facility] Encounter Details Date Type Department Care Team (Late st Contact Info) Description 08/02/2021 Get Medical Advice [facility] [place] [address] [place], [place] [phone] Dayanna [place]otom[place], [place] [address] [place], [place] [phone] Genetic testing Social History Tobacco Use Types [...] N ot on file 07/01/2021 Data from: https://www.neighborhoodatlas.medicine.[facility]/. Last address used for calculation [address] [...] Description 09/30/2024 9:15 AM EDT Office Visit [facility] [address] [place] [address] 1 year follow up 09/30/2024 9:30 AM EDT Visit (SP) Office Hematology/Oncology [address] [address] [place] [address] Shweta Masters APRN.GANG SAWYER [address] [place] [address] 1 year follow up documented as of this encounter Visit Diagnoses Not on filedocumented in this encounter Care Teams Retail Service Lead Merchandiser Relationship Specialty Start Date End Date Cas Galicia MD PCP - General Family Medicine 02/20/14 Sai Perez MD [address] [address] Primary Staff Physician Cardiology 07/21/21 Rubens Tim DO [address] [place] [address] [place] [address] Referring Development Spec 08/05/21 documented as of this encounter
--- OUTSIDE RECORDS SUMMARY | 2024-09-29 12:45 | XMS_ITS | Clinical Summary ---
Author Organization [facility] Address [address] [place] [address] Care Team Providers Care Electronic Operator Name Role Phone Cas Galicia MD Primary Care Provider [phone] Allergies Active Allergy Reactions Criticality Noted Date Comments Zolpidem 05/24/2022 Aspirin Rash Low 09/04/2011 Other reaction(s): Angioedema, Unknown, Unknown Bupropion 06/21/2022 Other reaction(s): Other (See Comments) Reports like seizure activity and the fall asleep Reports like seizure activity and the fall asleep Cefaclor Anaphylaxis,Shortne ss of breath,Swelling High 09/04/2011 Other reaction(s): Unknown, Unknown Other reaction(s): Unknown Other reaction(s): Unknown Cefuroxime Axetil Rash,Shortness of breath High 09/04/2011 Clindamycin Rash,Shortness of breath,Swelling High 02/23/2014 Other reaction(s): Unknown, Unknown Dimethicone 07/07/2022 Drospirenone-Ethinyl Estradiol 09/04/2011 Other reaction(s): Other: See Comments Makers her asthma flair up Other reaction(s): Other: See Comments Skin discoloration of feet with OCPs Skin discoloration of feet with OCPs Makers her asthma flair up Erythromycin 07/07/2022 Eucalyptus Anaphylaxis High 10/23/2020 Fish Containing Products Hives Medium 07/25/2021 Gatifloxacin Diarrhea 2014 Gloves, Latex With Aloe Vera 08/18/2021 Other reaction(s): Unknown Ibuprofen Rash Medium 09/04/2011 Other reaction(s): Unknown, Unknown Due to clotting disorder-Aleve Due to clotting disorder-Aleve Iodides Anaphylaxis High 09/04/2011 Iodinated Contrast Media Anaphylaxis High 02/23/2014 Other reaction(s): Unknown Does not tolerate with pre-medication Tolerated with pre-medication on 09/22/21 Other reaction(s): Unknown Does not tolerate with pre-medication Iodine 05/24/2022 Other reaction(s): Unknown Latex, Natural Rubber Itching,Rash,Swell i ng Low 09/04/2011 Other reaction(s): Unknown Skin cracks and bleeds Skin cracks and bleeds Lavender (Lavandula Angustifolia) Anaphylaxis High 06/13/2020 Levofloxacin Rash Low 11/11/2020 Macrolide Antibiotics Shortness of breath,Swelling High 09/04/2011 Other reaction(s): Allergy, Unknown, Unknown Menthol Hives 02/27/2022 Naproxen 09/06/2020 Other reaction(s): Angioedema Norethindrone Ac-Eth Estradiol 09/04/2011 Chest hurt and legs turned black -- saw Dr. Jorge London Chest hurt and legs turned black -- saw Dr. Jorge London Penicillins Itching,Rash Low 09/04/2011 Other reaction(s): Unknown, Unknown, Unknown Povidone-Iodine Rash Low 05/24/2022 Rofecoxib Rash Low 09/04/2011 Other reaction(s): Unknown Shellfish Derived Hives Medium 07/25/2021 Sulfa (Sulfonamide Antibiotics) Shortness of breath,Swelling High 03/21/2015 Other reaction(s): Unknown Other reaction(s): Unknown Sulfamethoxazole-Trime thoprim High 01/23/2014 Other reaction(s): Other Cant breathe Valacyclovir Anaphylaxis,Shortne ss of breath High 10/05/2021 Medications albuterol 90 mcg/actuation inhaler every 4 (four) hours. 01/12/20 22 Active EPINEPHrine 0.3 mg/0.3 mL injection syringe INJECT 0.3 MLS INTO THE MUSCLE ONCE NEEDED (SEVERE ALLERGIC REACTION) 06/05/19 22 Active fluticasone (Flonase Sensimist) 27.5 mcg/actuation nasal spray 2 sprays in the morning and at bedtime. Active fremanezumab (Ajovy) 225 mg/1.5 mL auto-injector Inject 225 mg under the skin every 30 (thirty) days. 10/20/19 Active lamoTRIgine (LaMICtal) 150 mg tablet 1 tablet at bedtime. 12/17/19 Active levalbuterol (Xopenex) 45 mcg/actuation inhaler Inhale 1-2 puffs every 4 (four) hours if needed. 11/01/19 Active MAGNESIUM ORAL Take 800 mg by mouth in the morning. Active mecobalamin, vitamin B12, 1,000 mcg tablet,disintegrat ing in the morning. 04/06/19 Active montelukast (Singulair) 10 mg tablet Take 10 mg by mouth in the morning. 01/20/20 14 Active ondansetron ODT (Zofran-ODT) 4 mg disintegrating tablet ondansetron 4 mg disintegrating tablet 01/19/20 Active sertraline (Zoloft) 50 mg tablet Take 100 mg by mouth in the morning. 06/11/19 Active ubrogepant (Ubrelvy) 100 mg tablet TAKE 1 TABLET BY MOUTH AT ONSET OF MIGRAINE. MAY REPEAT IN 2 HOURS NEEDED. MAX 2 TABLET IN 24 HOURS 08/25/19 Active zonisamide (Zonegran) 100 mg capsule Take 200 mg by mouth at bedtime. 05/03/19 23 Active DULoxetine (Cymbalta) [address] capsule 60 mg. 01/29/20 Active cholecalciferol (Vitamin D3) 25 MCG (1000 units) tablet Take 1,000 Units by mouth in the morning. Active diphenhydrAMINE 25 mg capsule Take by mouth every 6 (six) hours if needed for itching. Active levothyroxine (Synthroid) 100 mcg tablet Take 100 mcg by mouth before breakfast. Active salicylic acid (COMPOUND W TOP) Apply topically. Estradiol and Progesterone Active prasterone, DHEA, (DHEA ORAL) Take by mouth. Act david pyridostigmine (Mestinon) 180 mg ER tabletIndications: Autonomic dysfunction TAKE 1 TABLET (180 MG) BY MOUTH IN THE MORNING AND AT BEDTIME. DO NOT CRUSH OR CHEW. 180 tablet 3 11/29/19 24 025 Active tiotropium-olodate roL (Stiolto Respimat) 2.5-2.5 mcg/actuation mist inhaler Inhale 2 puffs. 04/18/19 25 Active sAXagliptin (Onglyza) 5 mg tablet 05/23/19 25 Active magnesium oxide (Mag-Ox) 400 mg tablet 400 mg if needed. Ac tive ketorolac (Toradol) 10 mg tablet Take 10 mg by mouth every 6 (six) hours if needed. 05/07/19 25 Active hydrocortisone 2.5 % cream Apply topically if needed in the morning and at bedtime. 07/09/19 25 Active liothyronine (Cytomel) 5 mcg tablet take 1 tablet (5 mcg total) by mouth in the morning. Active medical supply, miscellaneous (MISCELLANEOUS CREAMS TOP) Apply topically. 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 Dyspareunia in female 01/01/2023 01/01/2023 Gross hematuria 01/01/2023 01/01/2023 Kidney stone 01/01/2023 01/01/2023 Ovarian cyst 01/01/2023 01/01/2023 Right inguinal hernia 01/01/2023 01/01/2023 Stress incontinence 01/01/2023 01/01/2023 Vitamin D deficiency 01/01/2023 01/01/2023 Urethral stricture 01/01/2023 01/01/2023 Implantable loop recorder present 07/17/2022 Syncope and collapse 05/24/2022 Overview (05/24/2022): Added automatically from request for surgery [id number] Qualitative platelet disorder 04/03/2022 Adenovirus infection 01/10/2022 01/01/2023 RSV (respiratory syncytial virus infection) 07/202101/01/2023 Palpitations 10/20/2021 01/01/2023 Orthostatic intolerance 08/23/2021 Diffuse pain 08/23/2021 01/01/2023 Moderate persistent asthma without complication 07/25/2021 Allergic reaction to contrast dye 07/25/2021 01/01/2023 Adverse food reaction 07/25/2021 01/01/2023 Blood pressure instability 05/24/2021 Physical deconditioning 05/24/2021 01/02/20 Orthostatic lightheadedness 05/24/202112/07 Transient diplopia 05/24/2021 01/01/2023 Subjective muscle weakness 05/24/202101/01 Anxiety 03/02/2021 Hypersomnia with sleep apnea 03/02/2021 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 03/02/2021 Cervicalgia 03/02/2021 01/01/2023 Brain fog 03/02/2021 01/01/2023 Word finding difficulty 03/02/2021 01/02/20 Trapezius muscle spasm 03/02/2021 Autonomic dysfunction 02/10/2021 History of hysterectomy 02/10/2021 Aspirin allergy 02/10/2021 01/01/2023 PTSD (post-traumatic stress disorder) 12/24/2020 Diabetes mellitus 12/24/2020 Migraine without aura and wi thout status migrainosus, not intractable 12/24/2020 KATELIN (obstructive sleep apnea) 12/24/2020 Bradycardia 12/24/2020 01/01/2023 Chest pain 12/24/2020 01/01/2023 Allergic rhinitis 12/22/2015 Asthma 12/22/2015 Gastroesophageal reflux disease 12/22/2015 Hearing loss 12/22/2015 Hyperlipidemia 12/22/2015 Irritable bowel syndrome 12/22/2015 Arachnoid cyst 12/22/2015 01/01/2023 Generalized headache 12/22/2015 01/01/2023 Encounter for long-term (current) use of insulin 12/22/2015 01/01/2023 Primary hypothyroidism 12/22/2015 Arachnoid cyst of pituitary gland 04/07/2015 Bleeding disorder 02/23/2014 Abdominal pain, acute, right lower quadrant 12/0701/01/2023 Encounters Date Type Department Care Team Description 09/25/2024 11:10 AM EDT Ancillary Procedure [facility] [address] [place] [address] Awareness of heartbeats 09/24/2024 Orders Only [facility] [address] [place] [address] Halima Morris MD 08/25/2024 11:55 AM EDT Ancillary Procedure [facility] [address] [place] [address] Awareness of heartbeats 08/25/2024 Orders Only [facility] [address] [place] [address] Jorge Montana MD 08/13/2024 Telephone [facility] [address] [place] [phone] Annalee Payne MA 08/12/2024 3:30 PM EDT Telemedicine [facility] [address] [place] [phone] Macrina Wadsworth CNP Edema, unspecified type (Primary Dx); Orthostatic intolerance; Syncope and collapse; Implantable loop recorder present; Palpitations with regular cardiac rhythm 08/07/2024 Orders Only [facility] [address] [place] [phone] Halima Morris MD 07/29/2024 11:05 PM EDT Ancillary Procedure [facility] [address] [place] [phone] Awareness of heartbeats 07/09/2024 Orders Only [facility] [address] [place] [phone] Halima Morris MD from Last 3 Months Family History Medical History Relation Name Comments Heart attack Father Jd(biological father) Heart disease Father Jd(biological father) 57 Heart failure Father Jd(biological father) Heart murmur Father Jd(biological father) Hyperlipidemia Father Jd(biological father) Cancer Maternal Grandfather Armando Aortic aneurysm Maternal Grandmother Linda 60 Cancer Maternal Grandmother Linda Asthma Mother Maira Cancer Mother Maira Coronary artery disease Mother Maira Diabetes Mother Maira Diabetes type II Mother Maira Heart attack Mother Maira 52 Heart disease Mother Maira Heart failure Mother Maira Hyperlipidemia Mother Maira Hypertension Mother Maira Kidney disease Mother Maira Skin cancer Mother Maiar Stroke Mother Maira pituitary tumor Mother Maira Cesar's thyroiditis Mother's Sister 1 Stroke Mother's Sister 2 Katie Thyroid disease Mother's Sister 3 Katharina Stroke Mother's Sister 4 Katie Thyroid disease Mother's Sister 5 Katharina Cancer Paternal Grandmother Shelbie mother Diabetes type II Sister Hypertension Sister Fainting Son 1 POTS Son 1 Asthma Son 2 Relation Name Status Comments Father Jd(biological father) Maternal Grandfather Armando Alive Maternal Grandmother Linda Alive Mother Maira Mother's Sister 1 Mother's Sister 2 Katie Alive Mother's Sister 3 Katharina Alive Mother's Sister 4 Katie Alive Mother's Sister 5 Katharina Alive Paternal Grandmother Shelbie mother Alive Sister Son 1 Alive Son 2 Alive Son 3 Alive Social History Tobacco Use Types Packs/Day Years Used Date Smoking Tobacco: Never Passive Smoke Exposure: Never Smokeless Tobacco: Never Tobacco Cessation:Counseling Given: Not Answered Alcohol Use Standard Drinks/Week Comments Not Currently [...] exercise at this level? 30 min 07/21/2022 [place] Safety [place] Environment Answer Date Rec orded [...] Heterosexual or Straight 09/06 9:10 PM EDT Last Filed Vital Signs Vital Sign Reading Time Taken Comments Blood Pressure 132/60 01/10/2023 12:23 PM EST Pulse 75 01/10/2023 12:23 PM EST Temperature - - Respiratory Rate 16 06/27/2022 9:43 AM EDT Oxygen Saturation 97% 01/01/2023 2:51 PM EST Inhaled Oxygen Concentration - - Weight 103 kg (227 lb) 08/12/2024 2:49 PM EDT Height 162.6 cm (5' 4 ) 08/12/2024 2:49 PM EDT Body Mass Index 38.96 08/12/2024 2:49 PM EDT Plan of Treatment Health Maintenance Due Date Last Done Comments Diabetes: Retinopathy Screening 12/20/1993 Varicella Vaccines (1 of 2 - 13+ 2-dose series) 12/20/1996 Diabetes: Urine Protein Screening 12/20/2002 Hepatitis B Vaccines (1 of 3 - 19+ 3-dose series) 12/20/2002 Pneumococcal Vaccine: Pediatrics (0 to 5 Years) and At-Risk Patients (6 to 64 Years) (1 of 2 - PCV) 12/20/2002 Adult Tetanus 12/20/2005 HPV/Cotest 12/20/2013 Cervical Cancer Screening 03/17/2016 Pap Smear 03/17/2016 03/17/2013 Diabetes: Hemoglobin A1C 04/03/2023 01/01/2023 COVID-19 Vaccine (2023-2 5 season) 2023 Mammogram 2023 Influenza Vaccine (#1) 2024 , 11/06/2019, 10/27/2019 Depression Screening 08/12/2025 08/12/2024 Zoster Vaccines (1 of 2) 12/20/2033 HIB Vaccines Aged Out No longer eligi ble based on patient's age to complete this topic HPV Vaccines Aged Out No longer eligi ble based on patient's age to complete this topic IPV Vaccines Aged Out No longer eligi ble based on patient's age to complete this topic Meningococcal B Vaccine Aged Out No l onger eligible based on patient's age to complete this topic Meningococcal Vaccine Aged Out No domingo james eligible based on patient's age to complete this topic Rotavirus Vaccines Aged Out No longer eligible based on patient's age to complete this topic Medical Devices Implanted Type Area [employer] Device Identifier Shelf Expiration Date Model / Serial / Lot Monitor,Cardiac,B iomonitor Iii - [id number] - [id number] Implanted:Qty: 1 on 06/27/2022 by Stephon Cronin MD at [facility] [employer] 10/06/2023 [id number] / [id number] / Procedures Procedure Name Priority Date/Time Associated Diagnosis Comments CARDIAC DEVICE CHECK CHECK - REMOTE Routine 09/26/2024 10:33 AM EDT Awareness of heartbeats CARDIAC DEVICE CHECK - REMOTE - LOOP RECORDER (ILR) Routine 09/24/2024 12:00 AM EDT CARDIAC DEVICE CHECK CHECK - REMOTE Routine 08/27/2024 1:03 PM EDT Awareness of heartbeats CARDIAC DEVICE CHECK - REMOTE - LOOP RECORDER (ILR) Routine 08/25/2024 12:00 AM EDT CARDIAC DEVICE CHECK CHECK - REMOTE Routine 08/21/2024 6:12 PM EDT Awareness of heartbeats CARDIAC DEVICE CHECK - REMOTE - LOOP RECORDER (ILR) Routine 08/07/2024 12:00 AM EDT CARDIAC DEVICE CHECK CHECK - REMOTE Routine 07/09/2024 3:07 PM EDT Awareness of heartbeats CARDIAC DEVICE CHECK - REMOTE - LOOP RECORDER (ILR) Routine 07/09/2024 12:00 AM EDT from Last 3 Months Results * CARDIAC DEVICE CHECK - REMOTE - LOOP RECORDER (ILR) (09/26/2024 10:33 AM EDT) Only the most recent of4 resultswithin the time period is included. us Jorge Montana MD CV IMPLANTABLE CARDIAC DEVICE AR OCEDURES Final Result CPACS * Cardiac device check - Remote loop recorder (ILR) (09/24/2024 12:00 AM EDT) Only the most recent of4 resultswithin the time period is included. Anatomical Region Laterality Modality Other 09/24/2024 us Halima Morris MD CV IMPLANTABLE CARDIAC DEVICE PROCEDURES Final Result from Last 3 Months Insurance [facility] Member Subscriber Plan / Payer (Ef fective 2022-Present) Name:Vijaya Tran Member ID:[id number] Relation to Subscriber:Self Name:Vijaya Tran Subscriber ID:[id number] Payer ID:[id number] (NAIC) Type:Not on file Address: [facility] [id number] [address] Member Subscriber Plan / Payer (Ef fective 2024-Present) Name:Vijaya Tran Relation to Subscriber:Spouse Name:VINNY TRAN Date of :1984 (Home) Address: [address] [address] Payer ID:[id number] (NAIC) Type:Not on file Address: [facility] [id number] [place] [id number] Care Teams Electronic Operator Relationship Specialty Start Date End Date Cas Galicia MD [address] [place] [address] PCP - General 02/17/22
--- OUTSIDE RECORDS SUMMARY | 2024-09-29 12:45 | XMS_ITS | Encounter Summary ---
Author Organization [facility] Address [address] [place] [address] Care Team Providers Care Chief Of Pediatric Urology Name Role Phone Cas Galicia MD Primary Care Provider [phone] Reason for Visit * Reason Comments Med Change Request Encounter Details Date Type Department Care Team (Late st Contact Info) Description 04/11/2023 Refill [facility] [address] [place] [address] Macrina Wadsworth, NUCLEAR DESIGN ENGINEER [address] [place] [address] Autonomic dysfunction Social History Tobacco Use Types Packs/Day Years [...] Answer Date Recorded Patient Health Questionnaire-2 Score 1 01/10/2023 Exercise Vital Sign Answer Date Recorde d [...] on file documented as of this encounter Visit Diagnoses Diagnosis Autonomic dysfunction documented in this encounter Care Teams Chief Of Pediatric Urology Relationship Specialty Start Date End Date Cas Galicia MD [address] [place] [address] PCP - General 02/17/22 documented as of this encounter
--- OUTSIDE RECORDS SUMMARY | 2024-09-29 12:45 | XMS_ITS | Encounter Summary ---
Author Organization [facility] Address [address] [place] [address] Care Team Providers Care Poolroom/Poolhall Manager Name Role Phone Cas Glaicia MD Primary Care Provider [phone] Cas Galicia MD Primary Care Provider [phone] Cas Galicia MD Unavailable Cas Galicia MD Unavailable Reason for Visit * Reason Comments Med Refill Encounter Details Date Type Department Care Team (Late st Contact Info) Description 03/22/2023 Refill [facility] [address] [place] [address] Cas Galicia MD [address] [place] [address] Mild persistent asthma, uncomplicated (HCC); Asthma (HCC) Social History Tobacco Use Types Packs/Day Years [...] 10:40 AM EDT Office Visit [facility] [address] [place] [phone] [place], [place], [address] [place] [address] 02/11/2025 9:00 AM EST Office Visit [facility] [address] [place] [address] Cas Galicia MD [address] [place] [phone] 07/08/2025 8:20 AM EDT Office Visit [facility] [address] [place] [address] Jodi Holden, PONCE [address] [place], [place] [id number] documented as of this encounter Visit Diagnoses Diagnosis Mild persistent asthma, uncomplicated (HCC) Asthma (HCC) Unspecified asthma documented in this encounter Care Teams Poolroom/Poolhall Manager Relationship Specialty Start Date End Date Cas Galicia MD PCP - General Family Medicine 12/06/22 04/08/23 Cas Galicia MD [address] [place] [phone] PCP - General Family Medicine 04/09/23 Cas Galicia MD [address] [place] [phone] PCP - [employer] 06/06/23 Cas Galicia MD [address] [place] [address] PCP - [employer] 11/06/23 documented as of this encounter
--- OUTSIDE RECORDS SUMMARY | 2024-09-29 12:45 | XMS_ITS | Clinical Summary ---
Author Organization [facility] Address [id number] [address] [place] [address] Care Team Providers Care Barrel Marker Name Role Phone Cas Galicia MD Primary Care Provider [phone] Allergies Active Allergy Reactions Criticality Noted Date Comments Gloves, Latex With Aloe Vera 08/18/2021 Other reaction(s): Unknown Aspirin Rash Low 09/04/2011 Bupropion Other (See Comments) 06/21/2022 Reports like seizure activity and the fall asleep Cefaclor Anaphylaxis,Swelli ng,Shortness Of Breath High 09/04/2011 Other reaction(s): Unknown Clindamycin Rash,Shortness Of Breath,Swelling High 02/23/2014 Drospirenone-Ethinyl Estradiol 09/04/2011 Makers her asthma flair up Other reaction(s): Other: See Comments Skin discoloration of feet with OCPs Erythromycin Shortness Of Breath,Swelling High 09/04/2011 Eucalyptus Anaphylaxis High 12/15/2020 Fish Containing Products Hives Medium 07/25/2021 Gatifloxacin Diarrhea 12/15/2020 Ibuprofen Rash Medium 09/04/2011 Due to clotting disorder-Aleve Iodides Anaphylaxis High 09/04/2011 Iodinated Contrast Media Anaphylaxis High 02/23/2014 Other reaction(s): Unknown Does not tolerate with pre-medication Latex, Natural Rubber Swelling,Itching,R mil Low 09/04/2011 Skin cracks and bleeds Lavender (Lavandula Angustifolia) Anaphylaxis High 06/13/2020 Levofloxacin Rash Low 12/15/2020 Menthol Hives 02/27/2022 Metronidazole 03/02/2021 Norethindrone Ac-Eth Estradiol 09/04/2011 Chest hurt and legs turned black -- saw Dr. Jorge London Penicillins Itching,Rash Low 09/04/2011 Povidone-Iodine Rash Low 05/24/2022 Rofecoxib Rash Low 09/04/2011 Shellfish Derived Hives Medium 07/25/2021 Sulfa (Sulfonamide Antibiotics) Shortness Of Breath High 12/15/2020 Sulfamethoxazole 08/18/2021 Other reaction(s): Unknown Sulfamethoxazole-Trimeth oprim Other (See Comments) High 01/23/2014 Cant breathe Valacyclovir Anaphylaxis High 10/05/2021 Zolpidem Other (See Comments) High 05/24/2022 Uncontrolable limb movements Medications * This document contains information received from the source organization and may not represent a complete record from that organization. montelukast (SINGULAIR) 10 mg tablet Take 1 tablet (10 mg total) by mouth in the morning. Active lamoTRIgine (LaMICtal) 150 mg tablet Take 1 tablet (150 mg total) by mouth once daily at bedtime. Active cholecalciferol, vitamin D3, (VITAMIN D3 ORAL) Take 1 capsule by mouth. Active sertraline (ZOLOFT) 100 mg tablet Take 1 tablet (100 mg total) by mouth in the morning. Active fluticasone (VERAMYST) 27.5 mcg/actuation nasal spray Administer 2 sprays into each nostril once daily. Active EPINEPHrine (EPIPEN) 0.3 mg/0.3 mL auto-injector INJECT 0.3 MLS INTO THE MUSCLE ONCE NEEDED (SEVERE ALLERGIC REACTION) 06/06/19 Active pantoprazole (PROTONIX) 40 mg EC tablet Take by mouth daily. Active albuterol (PROVENTIL HFA;VENTOLIN HFA) 90 mcg/actuation inhaler as needed. 01/12/20 22 Active ondansetron ODT (ZOFRAN ODT) 4 mg disintegrating tablet 1 (ONE) TABLET BY MOUTH EVERY SIX HOURS, NEEDED 01/19/20 22 Active diphenhydrAMINE (BENADRYL) 25 mg capsule Take by mouth every 6 (six) hours as needed. Active levocetirizine (XYZAL) 5 mg tablet Take 1 tablet (5 mg total) by mouth every evening. Active DULoxetine (CYMBALTA) 60 mg capsule Take 1 capsule (60 mg total) by mouth nightly. 12/27/19 23 Active cyanocobalamin (VITAMIN B12) 1,000 mcg tablet, sublingual Place 1 tablet (1,000 mcg total) under the tongue in the morning. 30 tablet 11 01/05/20 23 Active UBRELVY 100 mg tablet Take 100 mg by mouth once as needed (migraine) for up to 1 dose. 16 tablet 12 12/06/19 24 Active magnesium gluconate (MAGONATE) 500 mg tablet tablet Take 27 mg by mouth in the morning and 27 mg before bedtime. 600 mg. 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 20 tablet 05/07/19 25 Active sAXagliptin (ONGLYZA) 5 mg tablet Take 1 tablet (5 mg total) by mouth in the morning. 02/10/19 25 Active pyridostigmine (MESTINON) 60 mg tablet Take 1 tablet (60 mg total) by mouth 3 (three) times a day. 10/10/19 24 026 Active baclofen (LIORESAL) 20 mg tabletIndications: Migraine without aura and without status migrainosus, not intractable,Trapez ius muscle spasm,Cervicalgia Take 0.5-1 tablets (10-20 mg total) by mouth nightly. 90 tablet 1 07/02/19 25 Active fremanezumab-vfrm (AJOVY 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) 225 mg/1.5 mLIndications:Migr yuval without aura and without status migrainosus, not intractable Inject 1.5 mL (225 mg total) under the skin every 28 days. 4.5 mL 3 08/12/19 25 Active zonisamide (ZONEGRAN) 100 mg capsuleIndications :Migraine without aura and without status migrainosus, not intractable Take 2 capsules (200 mg total) by mouth in the evening. 180 capsule 1 09/16/19 25 Active zonisamide (ZONEGRAN) 100 mg capsuleIndications :Migraine without aura and without status migrainosus, not intractable Take 2 capsules (200 mg total) by mouth in the evening. 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 Overview (02/10/2021): Autonomic dysfunction History of hysterectomy 02/10/2021 Autonomic dysfunction 02/10/2021 Bradycardia 12/24/2020 Chest pain 12/24/2020 Depression 12/24/2020 GERD (gastroesophageal reflux disease) Hypothyroidism 12/24/2020 Migraine without aura and wi thout status migrainosus, not intractable 12/24/2020 KATELIN (obstructive sleep apnea) 12/24/2020 Diabetes mellitus 12/24/2020 PTSD (post-traumatic stress disorder) 12/24/2020 Arachnoid cyst 12/22/2015 Resolved Problems Problem Noted Date Diagnosed Date Resolved Date COVID 12/24/2020 06/29/2022 Encounters Date Type Department Care Team Description 09/22/2024 Refill [facility], [facility] Department of [place] [id number] [facility] [address] [place] [address] Alina Garcia CMA 09/15/2024 Refill [facility], A Department of [address] [facility] [address] Stella Flowers APRN-MACY Migraine without aura and without status migrainosus, not intractable 08/11/2024 Refill [facility], A Department of [address] [address] Stella Flowers APRN-MACY Migraine without aura and without status migrainosus, not intractable 07/01/2024 9:00 AM EDT Telemedicine [facility], A Department of [address] [address] Stella Flowers APRN-MACY 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 (Primary Dx); Migraine without aura and without status migrainosus, not intractable; Word finding difficulty; Trapezius muscle spasm; Memory difficulties; Hypersomnia with sleep apnea; 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; Cervicalgia; Brain fog 07/01/2024 Travel from Last 3 Months Family History Medical History Relation Name Comments COPD Father Randell Diabetes Father Randell Early Father Randell Heart attack Father Randell Heart disease Father Randell Hyperlipidemia Father Randell Hypertension Father Randell Vision loss Father Randell Asthma Mother Maira Brain Tumor Mother Maira COPD Mother Maira Depression Mother Maira Diabetes Mother Maira Early Mother Maira Heart attack Mother Maira Heart disease Mother Maira Hyperlipidemia Mother Maira Hypertension Mother Maira Kidney disease Mother Maira Mental illness Mother Maira Stroke Mother Maira Diabetes Sister 1 Hypertension Sister 1 Diabetes Sister 2 Catherine Nunez Vision loss Sister 2 Catherine Nunez Diabetes Sister 3 Na Hypertension Sister 3 Na Relation Name Status Comments Father Randell Mother Maira Sister 1 Alive Sister 2 Catherine Nunez Sister 3 Na Social History Tobacco Use Types Packs/Day Years [...] Orientation Straight 05/14/2021 2: 48 PM EDT Last Filed Vital Signs Vital Sign Reading Time Taken Comments Blood Pressure 127/77 01/02/2024 10:07 AM EST Pulse 79 01/02/2024 10:07 AM EST Temperature 37 C (98.6 F) 08/10/2022 2:24 PM EDT Respiratory Rate 16 05/18/2021 10:24 AM EDT Oxygen Saturation 98% 05/18/2021 10:24 AM EDT Inhaled Oxygen Concentration - - Weight 100.7 kg (222 lb) 01/02/2024 10:07 AM EST Height 162.6 cm (5' 4 ) 01/02/2024 10:07 AM EST Body Mass Index 38.11 01/02/2024 10:07 AM EST Plan of Treatment Upcoming Encounters Date Type Department Care Team (Late st Contact Info) Description 11/24/2024 10:00 AM EDT Office Visit [facility] Adult Endocrinology, A Department of [facility] [address] [address] Akila Ballard MD [address] [address] 12/26/2024 10:30 AM EST Office Visit [facility] Neurology, A Department of [facility] [address] [place] [address] Stella Flowers, CLAIMS SORTER-PICK UP WORKER [address] [facility] [address] [place] [address] Health Maintenance Due Date Last Done Comments Adult BMI Follow Up Plan 12/20/2001 DTaP,Tdap and Td Vaccines (1 - Tdap) 12/20/2002 Depression Screening 01/05/2024 01/04/2023 Influenza Vaccine 10/06/2024 11/20/2019, , 10/27/2019 Adult BMI Screening 01/01/2025 01/02/2024 Tobacco Screening 01/01/2025 01/02/2024 Pap Smear Discontinued 03/17/2013 Medical Devices Not on file Insurance ANTHEM ANTHEM Care Teams Barrel Marker Relationship Specialty Start Date End Date Cas Galicia MD PCP - General Family Medicine 11/18/20
--- OUTSIDE RECORDS SUMMARY | 2024-09-29 12:45 | XMS_ITS | Encounter Summary ---
Author Organization [facility] Address [address] [place] [address] Care Team Providers Care Insulator Helper Name Role Phone Cas Galicia MD Primary Care Provider [phone] Cas Galicia MD Primary Care Provider [phone] Cas Galicia MD Unavailable Cas Galicia MD Unavailable Encounter Details Date Type Department Care Team (Late st Contact Info) Description 01/25/2023 Orders Only [facility] [address] [place] [phone] Cas Galicia MD [address] [place] [address] Social History Tobacco Use Types Packs/Day Years [...] Description 12/01/2024 10:40 AM EDT Office [facility] [address] [place] [phone] Rubens Tim DO [address] [place] [address] 02/11/2025 9:00 AM EST Office Visit [facility] [address] [place] [phone] Cas Galicia MD [address] [place] [address] 07/08/2025 8:20 AM EDT Office Visit [facility] [address] [place] [address] Jodi Holden, [place] [address] [place] [address] documented as of this encounter Visit Diagnoses Not on filedocumented in this encounter Care Teams Insulator Helper Relationship Specialty Start Date End Date Cas Galicia MD PCP - General Family Medicine 12/06/22 04/08/23 Cas Galicia MD [address] [place] [address] PCP - General Family Medicine 04/09/23 Cas Galicia MD [address] [place] [address] PCP - [employer] 06/06/23 Cas Galicia MD [address] [place] [address] PCP - [employer] 11/06/23 documented as of this encounter
--- OUTSIDE RECORDS SUMMARY | 2024-09-29 12:45 | XMS_ITS | Encounter Summary ---
Author Organization [facility] Address [id number] [address] [place] [address] Care Team Providers Care Hydrotherapist Name Role Phone Cas Galicia MD Primary Care Provider [phone] Reason for Visit * Reason Onset Date Comments Med Refill 03/12/2024 Encounter Details Date Type Department Care Team (Late st Contact Info) Description 03/12/2024 Refill [facility] [address] [place] [address] Alina Garcia CMA Social History Tobacco Use [...] 11/24/2024 10:00 AM EDT Office Visit [facility] Adult Endocrinology, A Department of [facility] [address] [address] Akila Ballard MD [address] [address] 12/26/2024 10:30 AM EST Office Visit [facility] Neurology, A Department of [facility] [address] [address] Stella Flowers, ASSOCIATE PROFESSOR OF ART HISTORY-BUCKLE INSPECTOR [address] [employer] [address] [address] documented as of this encounter Visit Diagnoses Not on filedocumented in this encounter Additional Health Concerns Assessment Noted Time PHQ-9 Depression Total Score: 0 01/05/20 23 3:26 PM EST documented as of this encounter Care Teams Hydrotherapist Relationship Specialty Start Date End Date Cas Galicia MD PCP - General Family Medicine 11/18/20 documented as of this encounter
--- OUTSIDE RECORDS SUMMARY | 2024-09-29 12:45 | XMS_ITS | Encounter Summary ---
Author Organization [facility] Address [id number] [address] [place] [address] Care Team Providers Care Model Builder Name Role Phone Cas Galicia MD Primary Care Provider [phone] Encounter Details Date Type Department Care Team (Late st Contact Info) Description 10/23/2022 Orders Only [facility] [address] [place] [phone] External, Scanning Provider Social History Tobacco Use Types Packs/Day Years Used Date Smoking Tobacco: Never Smokeless Tobacco: Never Alcohol Use Standard Drinks/Week Comments Never 0 (1 standard drink = 0.6 oz pur e alcohol) PHQ-2 Answer Date Recorded Total Score 0 06/29/2022 Childcare Answer Date Recorded Childcare Unknown 07/17/2018 Employment Answer Date Recorded Employment Unknown 07/17/2018 Hunger Screening Answer Date Recorded Within the past 12 months we worried whether our food would run out before we got money to buy more. Never True 10/12/2022 Within the past 12 months th e food we bought just didn't last and we didn't have money to get more. Never True 10/12/2022 Purpose - Life Answer Date Recorded Purpose [...] Description 11/24/2024 10:00 AM EDT Office Visit [facility] Adult Endocrinology, A Department of [facility] [address] [address] Akila Ballard MD [address] [address] 12/26/2024 10:30 AM EST Office Visit [facility] Neurology, A Department of [facility] [address] [address] Stella Flowers [facility]NNEW [facility] [address] [address] documented as of this encounter Visit Diagnoses Not on filedocumented in this encounter Additional Health Concerns Assessment Noted Time PHQ-9 Depression Total Score: 0 06/30/19 23 1:10 PM EDT documented as of this encounter Care Teams Model Builder Relationship Specialty Start Date End Date Cas Galicia MD PCP - General Family Medicine 11/18/20 documented as of this encounter
--- OUTSIDE RECORDS SUMMARY | 2024-09-29 12:45 | XMS_ITS | Encounter Summary ---
Author Organization [facility] Address [id number] [address] [place] [address] Care Team Providers Care Duty Officer Name Role Phone Cas Galicia MD Primary Care Provider [phone] Reason for Visit * Reason Onset Date Comments Med Refill 03/12/2024 Encounter Details Date Type Department Care Team (Late st Contact Info) Description 03/12/2024 Refill [facility] [address] [place] [address] Alina Garcia CMA Social History [...] Description 11/24/2024 10:00 AM EDT Office Visit [facility] Adult Endocrinology, A Department of [facility] [address] [address] Aklia Ballard MD [address] [address] 12/26/2024 10:30 AM EST Office Visit [facility] Neurology, A Department of [facility] [address] [employer] [address] [address] Stella Flowers, ELECTRONIC SECURITY TECHNICIAN-ACCOUNTS PAYABLE CLERK [address] [employer] [address] [address] documented as of this encounter Visit Diagnoses Not on filedocumented in this encounter Additional Health Concerns Assessment Noted Time PHQ-9 Depression Total Score: 0 01/05/20 23 3:26 PM EST documented as of this encounter Care Teams Duty Officer Relationship Specialty Start Date End Date Cas Galicia MD PCP - General Family Medicine 11/18/20 documented as of this encounter
--- OUTSIDE RECORDS SUMMARY | 2024-09-29 12:45 | XMS_ITS | Encounter Summary ---
Author Organization [facility] Address [address] [place] [address] Care Team Providers Care Cue Selector Name Role Phone Cas Galicia MD Primary Care Provider [phone] Encounter Details Date Type Department Care Team (Late st Contact Info) Description 02/21/2022 Lab Requisition [facility] [address] [place] [address] Pat Garrett NP Social History Tobacco Use Types Packs/Day Years Used Date Smoking Tobacco: Never Assessed Comments Unknown Sex and Gender Information Value Date Recorded Sex Assigned at Female 09/26/2024 9:10 PM EDT Legal Sex Female 1:25 PM EDT Gender Identity Female 09/26/2024 9:10 PM EDT Sexual Orientation Heterosexual or Straight 09/06 9:10 PM EDT documented as of this encounter Plan of Treatment Not on file documented as of this encounter Procedures Procedure Name Priority Date/Time Associated Diagnosis Comments ELECTRON MICROSCOPY Routine 02/17/2022 1 2:00 AM EST documented in this encounter Results * Electron microscopy (02/17/2022 12:00 AM EST) Case Report Electron Microscopy Case: [id number] Authorizing Provider: Unknown Unknown Collected: 02/17/2022 0000 Ordering Location: [facility] Received: 02/21/2022 0655 Pathologist: Shree Aldana, PhD Cosigner: Ashley Marshall MD Specimen: Blood, Venous 02/22/2022 1:40 PM EST [facility] Final Diagnosis Sample was drawn on 02.17.22 and received on 02.21.22. This is too old for assessment. 02/22/2022 1:40 PM EST [facility] at 1429 EST Comment No charge has been applied to this sample. 02/22/2022 1:40 PM EST [facility] Blood Venous blood specimen / Unknown 02/17/2022 02/21/2022 6:55 AM EST Pat Garrett TAFE LECTURER LAB PATHOLOGY ORDERABLES Final R esult [facility] [address] [facility] [place], [place] [id number] documented in this encounter Visit Diagnoses Not on filedocumented in this encounter Care Teams Cue Selector Relationship Specialty Start Date End Date Cas Galicia MD [address] [place] [address] PCP - General 02/17/22 documented as of this encounter
--- OUTSIDE RECORDS SUMMARY | 2024-09-29 12:45 | XMS_ITS | Encounter Summary ---
Author Organization [facility] Address [address] [place] [address] Care Team Providers Care Registered Dietetic Technician Name Role Phone Cas Galicia MD Primary Care Provider [phone] Sai Perez MD Unavailable [phone] Rubens Tim DO Unavailable Source Comments In the event this information is protected by the Federal Confidentiality of Alcohol and Drug AbusePatient Records regulations: The Federal rules restrict any use of the information to criminally investigate or prosecute any alcohol or drug abuse patient.[facility] Encounter Details Date Type Department Care Team (Late st Contact Info) Description 08/24/2021 Patient [facility] [address] [address] Provider, [facility] REFERRAL-WELLNESS CONSULT Social History Tobacco Use Types Packs/Day Years [...] N ot on file 08/15/2021 Data from: https://www.[email or web address].medicine.[email or web address] Last address used for calculation [address] [...] Description 09/30/2024 9:15 AM EDT Office Visit [facility] [address] [place] [address] 1 year follow up 09/30/2024 9:30 AM EDT Visit (SP) Office Hematology/Oncology [address] [place] [address] [place] [address] Shweta Masters APRN.[facility] [address] [place] [address] 1 year follow up documented as of this encounter Visit Diagnoses Not on filedocumented in this encounter Care Teams Registered Dietetic Technician Relationship Specialty Start Date End Date Cas Galicia MD PCP - General Family Medicine 02/20/14 Sai Perez MD [address] [address] Primary Staff Physician Cardiology 07/21/21 Rubens Tim DO [address] [place] [address] [place] [address] Referring Senior Animal Trainer 08/05/21 documented as of this encounter
--- OUTSIDE RECORDS SUMMARY | 2024-09-29 12:45 | XMS_ITS | Clinical Summary ---
Author Organization [facility] Address [address] [place] [address] Phone Care Team Providers Care Motor Vehicle Operator Road Supervisor Name Role Phone Cas Galicia MD Primary Care Provider + Social History Tobacco Use Types Packs/Day Years Used Date Smoking Tobacco: Never Assessed Comments Unknown Sex and Gender Information Value Date Recorded Sex Assigned at Not on file Legal Sex Female 4:23 PM EST Gender Identity Not on file Sexual Orientation Not on file Plan of Treatment Not on file Care Teams Motor Vehicle Operator Road Supervisor Relationship Specialty Start Date End Date Cas Galicia MD PCP - General 05/11/15
--- OUTSIDE RECORDS SUMMARY | 2024-09-29 12:45 | XMS_ITS | Encounter Summary ---
Author Organization [facility] Address [address] [place] [address] Care Team Providers Care Sales Representative Raw Fibers Name Role Phone Cas Galicia MD Primary Care Provider Sai Perez MD Unavailable [phone] Rubens Tim DO Unavailable [phone] Source Comments In the event this information is protected by the Federal Confidentiality of Alcohol and Drug AbusePatient Records regulations: The Federal rules restrict any use of the information to criminally investigate or prosecute any alcohol or drug abuse patient.[facility] Encounter Details Date Type Department Care Team (Late st Contact Info) Description 06/29/2021 Patient Msg Neurology [address] [place] [address] Peter Knight APRN.POPULATION GENETICIST NO FORWARDING ADDRESS MRI and CT result Social History Tobacco Use Types Packs/Day Years Used Date Smoking Tobacco: Never Smokeless Tobacco: Never Alcohol Use Standard Drinks/Week Comments Yes 0 (1 standard drink = 0.6 oz pur e alcohol) rarely uses alcohol PHQ-2 Answer Date Recorded PHQ-2 score 3 06/29/2021 Area Deprivation Index Answer Date Aramis rded National Score (1-100), lower number is lower ri sk 73 07/01/2021 State Score (1-10), lower number is lower risk N ot on file 07/01/2021 Data from: https://www.neighborhoodatlas.medicine.[facility]/. Last address used for calculation [address] [...] suspected to have Coronavirus/COVID-19? No / Unsure 07/01/2021 10:02 AM EDT documented as of this encounter [...] Description 09/30/2024 9:15 AM EDT Office Visit [facility] [address] [place] [address] 1 year follow up 09/30/2024 9:30 AM EDT Visit (SP) Office Hematology/Oncology [address] [place] [address] Shweta Masters APRN.POPULATION GENETICIST [address] [address] 1 year follow up documented as of this encounter Visit Diagnoses Not on filedocumented in this encounter Care Teams Sales Representative Raw Fibers Relationship Specialty Start Date End Date Cas Galicia MD PCP - General Family Medicine 02/20/14 Sai Perez MD [address] [place] [address] Primary Staff Physician Cardiology 07/21/21 Rubens Tim DO [address] [place] [address] [place] [address] Referring Product Mgr 08/05/21 documented as of this encounter
--- OUTSIDE RECORDS SUMMARY | 2024-09-29 12:45 | XMS_ITS | Clinical Summary ---
Author Organization [facility] Address [address] [place] [address] Care Team Providers Care Project/Production Manager Imaging Name Role Phone Cas Galicia MD Primary Care Provider [phone] Sai Perez MD Unavailable [phone] Rubens Tim DO Unavailable [phone] Allergies Active Allergy Reactions Criticality Noted Date Comments Naproxen Angioedema 09/06/2020 Aspirin Angioedema 02/23/2014 Cefaclor Shortness of Breath,Anaphylaxis,S welling High 09/04/2011 Other reaction(s): Unknown Cefuroxime Axetil Shortness of Breath 5 Clindamycin Rash,Shortness of Breath 02/23/2014 Erythromycin Swelling,Shortness of Breath,Unknown 02/23/2014 Eucalyptus Anaphylaxis 10/23/2020 Fish Containing Products Hives Medium 07/25/2021 Gatifloxacin Diarrhea 2014 Iodinated Contrast Media Anaphylaxis High 02/23/2014 Tolerated with pre-medication on 09/22/21 Other reaction(s): Unknown Does not tolerate with pre-medication Latex Rash,Itching,Unknown Low 02/23/2014 Skin cracks and bleeds Lavender (Lavandula Angustifolia) Anaphylaxis 09/06/2020 Levofloxacin Rash Low 11/11/2020 Penicillin G Benzathine Unknown 08/18/2021 Penicillins Rash,Itching 02/23/2014 Shellfish Derived Hives Medium 07/25/2021 Sulfa (Sulfonamide Antibiotics) Swelling,Shortness of Breath 05/18/2015 Rofecoxib Unknown 06/08/2021 Drospirenone-Ethinyl Estradiol Other: See Comments 06/08/2021 Skin discoloration of feet with OCPs Medications * This document contains information received from the source organization and may not represent a complete record from that organization. montelukast (SINGULAIR) 10 mg tablet Take 10 mg by mouth once daily. 01/20/20 14 Active levothyroxine (SYNTHROID) 100 mcg tablet Take 100 mcg by mouth daily before breakfast. Takes 1.5 tablets on Wednesdays Active EPINEPHrine 0.1 mg/0.1 mL AutoInjector as needed. Active lamoTRIgine (LAMICTAL) 150 mg tablet Take 150 mg by mouth daily at bedtime. Active sertraline (ZOLOFT) 100 mg tablet Take 200 mg by mouth daily at bedtime. 06/11/19 20 Active mecobalamin, vitamin B12, 1,000 mcg ODT once daily. 04/06/19 22 Active VITAMIN D-3 125 mcg (5,000 unit) tab Take 5,000 Units by mouth once daily. 04/30/19 22 Active zonisamide (ZONEGRAN) 100 mg capsuleIndications :Chronic migraine without aura, intractable, without status migrainosus Take 1 capsule by mouth once daily. 90 capsule 3 07/07/19 22 Active rimegepant (NURTEC ODT) 75 mg disintegrating tabletIndications: Chronic migraine without aura, intractable, without status migrainosus Take 1 tablet by mouth once daily as needed. No more than 1 dose in 24 hours. 8 tablet 11 07/07/19 22 Active cetirizine (ZYRTEC) 10 mg tabletIndications: Angioedema, initial encounter,Urticari a Take 10 mg by mouth as needed. Active diphenhydrAMINE (BENADRYL) 25 mg tablet Take 50 mg by mouth every 6 hours as needed. Active UBRELVY 100 mg tablet TAKE 1 TABLET BY MOUTH AT ONSET OF MIGRAINE. MAY REPEAT IN 2 HOURS NEEDED. MAX 2 TABLET IN 24 HOURS 08/26/19 22 Active Magnesium 250 mg tab Take 250 mg by mouth. Active fremanezumab-vfrm subcutaneus auto-injector 225 mg/1.5 mL (AJOVY)Indications :Chronic migraine without aura, intractable, without status migrainosus Inject 1.5 mL subcutaneously once every month. Do not shake. 1.5 mL 11 3 8:34 AM EDT 10/20/19 22 Active SITagliptin (JANUVIA) 100 mg tablet Take 1 tablet by mouth once daily. 10/21/19 22 Active levalbuterol tartrate HFA 45 mcg/actuation inhalerIndications :Post-acute sequelae of COVID-19 (PASC),Moderate persistent asthma without complication (HCC) Inhale 1-2 Puffs as instructed every 4 hours as needed for wheezing/shortnes s of breath. 1 Each 3 11/01/19 22 Active DULoxetine (CYMBALTA) 30 mg capsule TAKE 1 CAPSULE BY MOUTH EVERY DAY DO NOT CRUSH OR CHEW 01/29/20 22 Active Fluticasone Furoate (FLONASE SENSIMIST) 27.5 mcg/actuation nasal spray 1 spray in each nostril Active CPAP/BIPAP/OTHER Type .CPAPSettings into a note to see current settings/supplies /DME information. Active pyridostigmine (MESTINON) 60 mg tablet Take 180 mg by mouth two times a day. 07/22/19 23 Active azelastine 0.1% nasal spray SPRAY 1 SPRAY INTO EACH NOSTRIL IN THE MORNING AND BEFORE BEDTIME DIRECTED 09/08/19 23 Active aminocaproic acid (AMICAR) 500 mg tabletIndications: Qualitative platelet disorder (HCC) Take 2 tablets by mouth every 6 hours as needed (once prior to dentist and then after for 3-4 doses.) for up to 20 days. 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 Palpitations 10/20/2021 Diffuse pain 08/23/2021 Decreased activity tolerance 08/23/2021 Orthostatic intolerance 08/23/2021 Moderate persistent asthma without complication 07/25/2021 Gastroesophageal reflux disease 07/25/2021 Allergic rhinitis 07/25/2021 Allergic reaction to contrast dye 07/25/2021 Drug reaction 07/25/2021 Adverse food reaction 07/25/2021 Screening for endocrine disorder 06/14/2021 Primary hypothyroidism 06/14/2021 Symptomatic bradycardia 05/24/2021 Blood pressure instability 05/24/2021 Subjective muscle weakness 05/24/2021 Physical deconditioning 05/24/2021 Transient diplopia 05/24/2021 Orthostatic lightheadedness 05/24/2021 Arachnoid cyst of pituitary gland 04/07/2015 Bleeding disorder 02/23/2014 Immunizations Immunization Administration Dates Next Due influenza (HD-IIV3) vaccine, age 65+ yr, high dose, trivalent, PF (FLUZONE HIGH-DOSE) 11/06/2019 influenza (IIV4) vaccine, ag e 6 mo - 64 yr, quadrivalent, PF (AFLURIA, FLUARIX, FLULAVAL, FLUZONE) 10/27/2019 influenza vaccine, unspecified formulation 11/19 Family History Medical History Relation Comments Diabetes Father Heart disease Father at age 57 Hypertension Father Cardiomyopathy Mother at age 52 Diabetes Mother uncontrolled Heart Attack Mother First CT at age 51 Hypertension Mother Ischemic Heart Disease Mother No Ocular Disease Other Diabetes Sister Hypertension Sister Heart Son 1 Being evaluated for HOCM (Dad has) Heart Son 2 Being evaluated for HOCM (Dad has) Syncope Son 2 Neurocardiogenic Syncope Asthma Son 3 Heart Son 3 Being evaluated for HOCM (Dad has) Relation Status Comments Father Maternal Grandfather Maternal Grandmother Mother Other Paternal Grandfather Paternal Grandmother Sister Alive Son 1 Alive Son 2 Alive Son 3 Alive Social History Tobacco Use Types Packs/Day Years Used Date Smoking Tobacco: Never Passive Smoke Exposure: Past Smokeless Tobacco: Never Tobacco Cessation:Counseling Given: No Alcohol Use Standard Drinks/Week Comments Not Currently 0 (1 standard drink = 0.6 oz pur e alcohol) PHQ-2 Answer Date Recorded PHQ-2 score 1 10/01/2023 Area Deprivation Index Answer Date Aramis rded National Score (1-100), lower number is lower ri sk 86 10/02/2022 State Score (1-10), lower number is lower risk 8 10/02/2022 Data from: https://www.neighborhoodatlas.medicine.[facility].edu/. Last address used for calculation [address] 10/02/2022 Comments No Sex and Gender Information Value Date Recorded Sex Assigned at Female 09/26/2020 5:05 PM EDT Legal Sex Female 4:12 PM EST Gender Identity Female 09/26/2020 5:05 PM EDT Sexual Orientation Straight 09/26/2020 5: 05 PM EDT Last Filed Vital Signs Vital Sign Reading Time Taken Comments Blood Pressure 123/84 10/01/2023 9:45 AM EDT Pulse 71 10/01/2023 9:45 AM EDT Temperature 36.1 C (97 F) 10/01/2023 9:45 AM EDT Respiratory Rate 16 10/01/2023 9:45 AM EDT Oxygen Saturation 99% 10/01/2023 9:45 AM EDT Inhaled Oxygen Concentration - - Weight 100 kg (220 lb 7.4 oz) 10/01/2023 9:45 AM EDT Height 162.6 cm (5' 4.02 ) 10/01/2023 9:45 AM ED T Body Mass Index 37.82 10/01/2023 9:45 AM EDT Plan of Treatment Upcoming Encounters Date Type Department Care Team (Late st Contact Info) Description 09/30/2024 9:15 AM EDT Office Visit [facility] Laboratory [address] [place] [address] 1 year follow up 09/30/2024 9:30 AM EDT Visit (SP) Office Hematology/Oncology [address] [place] [address] Shweta Masters APRN.RESIDENTIAL CHILD CARE COUNSELOR [address] [place] [address] 1 year follow up Health Maintenance Due Date Last Done Comments Annual PCP Team Chronic Disease Visit 12/20/2001 Anxiety Screening 12/20/2001 Depression Screening 12/20/2001 HIV Screening 12/20/2001 Hepatitis C Screening 12/20/2001 DTaP,Tdap,Td Vaccine (1 - Tdap) 12/20/2002 Hepatitis B Vaccine (1 of 3 - 19+ 3-dose series) 12/20/2002 Pneumococcal Vaccine (1 of 2 - PCV) 12/20/2002 Cervical Cancer Screening 12/20/2004 HPV Vaccine (1 - 3-dose SCDM series) 12/20/2010 Mammogram Screening 2023 Influenza Vaccine (#1) 2024 , 11/06/2019, 10/27/2019 Insurance Care Teams Project/Production Manager Imaging Relationship Specialty Start Date End Date Cas Galicia MD PCP - General Family Medicine 02/20/14 Sai Perez MD [address] [facility] [facility] [place] [address] Primary Staff Physician Cardiology 07/21/21 Rubens Tim DO [address] [place] [address] [place] [address] Referring Plating Foreman 08/05/21
--- OUTSIDE RECORDS SUMMARY | 2024-09-29 12:45 | XMS_ITS | Encounter Summary ---
Author Organization [facility] Address [address] [place] [address] Care Team Providers Care Transition Coach Name Role Phone Cas Galicia MD Primary Care Provider [phone] Sai Perez MD Unavailable [phone] Rubens Tim DO Unavailable [phone] Source Comments In the event this information is protected by the Federal Confidentiality of Alcohol and Drug AbusePatient Records regulations: The Federal rules restrict any use of the information to criminally investigate or prosecute any alcohol or drug abuse patient.[facility] Encounter Details Date Type Department Care Team (Late st Contact Info) Description 08/26/2021 Patient Msg Neurology [address] [place] [address] Provider, Ccf Appointment Cancellation Social [...] file 08/15/2021 Data from: https://www.neighborhoodatlas.medicine.[facility]/. Last address used for calculation [address] [...] Description 09/30/2024 9:15 AM EDT Office Visit [facility] Laboratory [address] [place] [address] [place] [address] 1 year follow up 09/30/2024 9:30 AM EDT Visit (SP) Office Hematology/Oncology [address] [place] [address] [place] [address] Shweta Masters APRN.[address] [place] [address] 1 year follow up documented as of this encounter Visit Diagnoses Not on filedocumented in this encounter Care Teams Transition Coach Relationship Specialty Start Date End Date Cas Galicia MD PCP - General Family Medicine 02/20/14 Sai Perez MD [address] [facility] [place] [address] Primary Staff Physician Cardiology 07/21/21 Rubens Tim DO [address] [place] [address] [place] [address] Referring Assistant Store Leader 08/05/21 documented as of this encounter
--- OUTSIDE RECORDS SUMMARY | 2024-09-29 12:45 | XMS_ITS | Encounter Summary ---
Author Organization [facility] Address [address] [place] [address] Care Team Providers Care Glove Machine Operator Name Role Phone Cas Galicia MD Primary Care Provider [phone] Sai Perez MD Unavailable [phone] Rubens Tim DO Unavailable [phone] Source Comments In the event this information is protected by the Federal Confidentiality of Alcohol and Drug AbusePatient Records regulations: The Federal rules restrict any use of the information to criminally investigate or prosecute any alcohol or drug abuse patient.[facility] Encounter Details Date Type Department Care Team (Late st Contact Info) Description 08/18/2021 Get Medical Advice Neurology [address] [id number] Bhargavi Ramesh PA-C [address] [place] [address] Emgality Social History Tobacco Use Types Packs/Day Years [...] N ot on file 08/15/2021 Data from: https://www.neighborhoodatlas.medicine.[facility]/. Last address used for calculation [address] [...] of Assessment Author No 02/23/2014 2:04 PM Agn Page MA * Do you have difficulty [...] Description 09/30/2024 9:15 AM EDT Office Visit [facility] [address] [place] [address] 1 year follow up 09/30/2024 9:30 AM EDT Visit (SP) Office Hematology/Oncology [address] [place] [address] Shweta Masters APRN.SCHOOL ADMISSIONS REPRESENTATIVE [address] [place] [address] 1 year follow up documented as of this encounter Visit Diagnoses Not on filedocumented in this encounter Care Teams Glove Machine Operator Relationship Specialty Start Date End Date Cas Galicia MD PCP - General Family Medicine 02/20/14 Sai Perez MD [address] [facility] [place] [address] Primary Staff Physician Cardiology 07/21/21 Rubens Tim DO [address] [place] [address] [place] [address] Referring Manufacturing Analyst 08/05/21 documented as of this encounter
--- OUTSIDE RECORDS SUMMARY | 2024-09-29 12:45 | XMS_ITS | Encounter Summary ---
Author Organization [facility] Address [id number] [address] [place] [address] Care Team Providers Care Sheet Metal Installer Name Role Phone Cas Galicia MD Primary Care Provider [phone] Encounter Details Date Type Department Care Team (Late st Contact Info) Description 10/23/2022 Orders Only [facility] [address] [place] [phone] Sierra Brody CNA Acquired hypothyroidism; Hypothyroidism, unspecified type Social History Tobacco Use Types Packs/Day Years [...] Description 11/24/2024 10:00 AM EDT Office Visit [facility] Adult Endocrinology, A Department of [facility] [address] [address] Akila Ballard MD [address] [address] 12/26/2024 10:30 AM EST Office Visit [facility] Neurology, A Department of [facility] [address] [address] Stella Flowers CARGO AND CONTAINER INSPECTOR-SECURITY OPERATIONS MANAGER [address] [address] documented as of this encounter Procedures Procedure Name Priority Date/Time Associated Diagnosis Comments T3, FREE Routine 10/06/2022 Acquired hypothyroidism TSH Routine 10/06/2022 Hypothyroidism, unspecified type documented in this encounter Results * TSH (10/06/2022) External Tsh 4.255 SUNQUEST 10/06/2022 us Akila Ballard MD LAB BLOOD ORDERABLES Final Result SUNQUEST * T3, free (10/06/2022) 10/06/2022 us Sarah Maradiaga CARGO AND CONTAINER INSPECTOR-SECURITY OPERATIONS MANAGER LAB BLOOD ORDERABLES Final Result Performing Organization Address City/[facility]/ZIP Co de Phone Number SUNQUEST documented in this encounter Visit Diagnoses Diagnosis Acquired hypothyroidism Unspecified hypothyroidism Hypothyroidism, unspecified type documented in this encounter Additional Health Concerns Assessment Noted Time PHQ-9 Depression Total Score: 0 06/30/19 23 1:10 PM EDT documented as of this encounter Care Teams Sheet Metal Installer Relationship Specialty Start Date End Date Cas Galicia MD PCP - General Family Medicine 11/18/20 documented as of this encounter
--- OUTSIDE RECORDS SUMMARY | 2024-09-29 12:45 | XMS_ITS | Encounter Summary ---
Author Organization [facility] Address [address] [place] [address] Care Team Providers Care Nylon Hot Wire Cutter Name Role Phone Cas Galicia MD Primary Care Provider [phone] Cas Galicia MD Unavailable Cas Galicia MD Unavailable Encounter Details Date Type Department Care Team (Late st Contact Info) Description 04/25/2023 Abstract [facility] [address] [place] [address] Cas Galicia MD [address] [place] [address] Social History Tobacco Use Types Packs/Day Years [...] often do you attend chur ch or moravian services? Patient declined 04/08/2023 Do you belong to any clubs o r organizations such as muslim groups, unions, fraternal or athletic groups, or [...] medical care, and heating? Somewhat hard 04/08/2023 [employer] [place] of Occupat ional Health - Occupational Stress [...] EDT Office Visit [facility] [address] [place] [address] Rubens Tim DO [address] [facility] [address] [place] [address] 02/11/2025 9:00 AM EST Office Visit [facility] [address] [place] [phone] Cas Galicia MD [address] [place] [phone] 07/08/2025 8:20 AM EDT Office Visit [facility] [address] [place] [address] Jodi Holden, PONCE [address] [place], [place] [phone] documented as of this encounter Visit Diagnoses Not on filedocumented in this encounter Care Teams Nylon Hot Wire Cutter Relationship Specialty Start Date End Date Cas Galicia MD [address] [place] [phone] PCP - General Family Medicine 04/09/23 Cas Galicia MD [address] [place] [phone] PCP - [place] [employer] 06/06/23 Csa Galicia MD [address] [place] [phone] PCP - [place] [employer] 11/06/23 documented as of this encounter
--- OUTSIDE RECORDS SUMMARY | 2024-09-29 12:45 | XMS_ITS | Encounter Summary ---
Author Organization [facility] Address [id number] [address] [place] [address] Care Team Providers Care Gamb Cutter Name Role Phone Cas Galicia MD Primary Care Provider [phone] Reason for Visit * Reason Onset Date Comments Med Refill 03/12/2024 Encounter Details Date Type Department Care Team (Late st Contact Info) Description 03/12/2024 Refill [facility] [address] [place] [address] Alina Garcia CMA Social History [...] 10:00 AM EDT Office Visit [facility] Adult Endocrinology, A Department of [facility] [address] [address] Akila Ballard MD [address] [address] 12/26/2024 10:30 AM EST Office Visit [facility] Neurology, A Department of [facility] [address] [employer] [address] [address] Stella Flowers, MASTER DEPUTY SHER[address] SECURITY-DOOR CLOSER MECHANIC [address] [address] [address] documented as of this encounter Visit Diagnoses Not on filedocumented in this encounter Additional Health Concerns Assessment Noted Time PHQ-9 Depression Total Score: 0 01/05/20 23 3:26 PM EST documented as of this encounter Care Teams Gamb Cutter Relationship Specialty Start Date End Date Cas Galicia MD PCP - General Family Medicine 11/18/20 documented as of this encounter
--- OUTSIDE RECORDS SUMMARY | 2024-09-29 12:45 | XMS_ITS | Encounter Summary ---
Author Organization [facility] Address [id number] [address] [place] [address] Care Team Providers Care Personnel Worker Name Role Phone Cas Galicia MD Primary Care Provider [phone] Encounter Details Date Type Department Care Team (Late st Contact Info) Description 12/05/2023 Orders Only [facility] [address] [phone] Akila Ballard MD [address] 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 documented in this encounter Results * T4, free (11/26/2023) 11/26/2023 us Akila Ballard MD LAB BLOOD ORDERABLES Final Result SUNQUEST * TSH (11/26/2023) 11/26/2023 us Akila Ballard MD LAB BLOOD ORDERABLES Final Result SUNQUEST documented in this encounter Visit Diagnoses Diagnosis 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
--- OUTSIDE RECORDS SUMMARY | 2024-09-29 12:46 | XMS_ITS | Encounter Summary ---
Author Organization [facility] Address [facility]-[id number] [address] [place] [address] Care Team Providers Care Electrical And Radio Mechanic Name Role Phone Cas Galicia MD Primary Care Provider [phone] Reason for Referral * Diagnostic Imaging (Routine) - Closed Specialty Diagnoses / Procedures Referred By Contac steven Referred To Contact Radiology Diagnoses Pain Procedures CT neck soft tissue without contrast [facility] [address] [place] [id number] Phone: tel: fax: Referral ID Status Reason Start Date Expiration Date Visits Re quested Visits Authorized [id number] Closed 05/22/2022 05/22/2023 1 1 Encounter Details Date Type Department Care Team (Late st Contact Info) Description 05/22/2022 Orders Only [facility] [address] [place] [phone] Transcribe, Orders Support User Pain (Primary Dx) Social History Tobacco Use Types Packs/Day Years [...] Description 11/24/2024 10:00 AM EDT Office Visit [facility] Adult Endocrinology, A Department of [facility] [address] [address] Akila Ballard MD [address] [address] 12/26/2024 10:30 AM EST Office Visit [facility] Neurology, A Department of [facility] [address] [address] Stella Flowers, PURE PAK MACHINE OPERATOR-SWITCHING CLERK [address] [address] documented as of this encounter Results * CT neck soft tissue without contrast (01/08/2022 3:15 PM EST) us Scanning Provider External IMG CT ORDERABLES Fin al Result documented in this encounter Visit Diagnoses Diagnosis Pain- Primary Generalized pain documented in this encounter Additional Health Concerns Assessment Noted Time PHQ-9 Depression Total Score: 0 10/06/19 22 10:43 AM EDT documented as of this encounter Care Teams Electrical And Radio Mechanic Relationship Specialty Start Date End Date Cas Galicia MD PCP - General Family Medicine 11/18/20 documented as of this encounter
--- OUTSIDE RECORDS SUMMARY | 2024-09-29 12:46 | XMS_ITS | Encounter Summary ---
Author Organization [facility] Address [address] [place] [address] Care Team Providers Care Marketing Trainee Name Role Phone Cas Galicia MD Primary Care Provider [phone] Sai Perez MD Unavailable [phone] Rubens Tim DO Unavailable [phone] Source Comments In the event this information is protected by the Federal Confidentiality of Alcohol and Drug AbusePatient Records regulations: The Federal rules restrict any use of the information to criminally investigate or prosecute any alcohol or drug abuse patient.[facility] Encounter Details Date Type Department Care Team (Late st Contact Info) Description 11/07/2021 Get Medical Advice Neurology [address] [id number] Bhargavi Ramesh PA-C [address] [place] [address] [facility] medicine Social History Tobacco Use Types Packs/Day Years [...] N ot on file 08/15/2021 Data from: https://www.neighborhoodatlas.medicine.[facility].edu/. Last address used for calculation [...] suspected to have Coronavirus/COVID-19? No / Unsure 11/10/2021 7:10 AM EDT documented as of this encounter [...] of Assessment Author No 02/23/2014 2:04 PM Megan Page MA * Because of a physical, [...] Description 09/30/2024 9:15 AM EDT Office Visit [facility] [address] [place] [address] 1 year follow up 09/30/2024 9:30 AM EDT Visit (SP) Office Hematology/Oncology [address] [place] [address] Shweta Masters APRN.TIME [employer]ORDER [address] [facility] [address] 1 year follow up documented as of this encounter Visit Diagnoses Not on filedocumented in this encounter Care Teams Marketing Trainee Relationship Specialty Start Date End Date Cas Galicia MD PCP - General Family Medicine 02/20/14 Sai Perez MD [address] [place] [address] Primary Staff Physician Cardiology 07/21/21 Rubens Tim DO [address] [place] [address] [place] [address] Referring Assistant Statistician 08/05/21 documented as of this encounter
--- OUTSIDE RECORDS SUMMARY | 2024-09-29 12:46 | XMS_ITS | Encounter Summary ---
Author Organization [facility] Address [id number] [address] [place] [address] Care Team Providers Care Edge Grinder Machine Name Role Phone Cas Galicia MD Primary Care Provider Encounter Details Date Type Department Care Team (Late st Contact Info) Description 04/11/2022 Orders Only [facility] [address] [place] [phone] External, Scanning Provider Social History Tobacco Use [...] have Coronavirus / COVID-19? No / Unsure 04/10/2022 9:06 AM EST documented as of this encounter Plan of Treatment Upcoming Encounters Date Type Department Care Team (Late st Contact Info) Description 11/24/2024 10:00 AM EDT Office Visit [facility] Adult Endocrinology, A Department of [facility] [address] [address] Akila Ballard MD [address] [address] 12/26/2024 10:30 AM EST Office Visit [facility] Neurology, A Department of [facility] [address] [address] Stella Flowers APRN-AUTOMOTIVE PARTS CLERK [address] [phone] documented as of this encounter Procedures Procedure Name Priority Date/Time Associated Diagnosis Comments THYROXINE BINDING GLOBULIN Routine 02/17/2022 documented in this encounter Results * Thyroxine binding globulin (02/17/2022) 02/17/2022 us Scanning Provider External LAB BLOOD ORDERABLES Final Result documented in this encounter Visit Diagnoses Not on filedocumented in this encounter Additional Health Concerns Assessment Noted Time PHQ-9 Depression Total Score: 0 10/06/19 22 10:43 AM EDT documented as of this encounter Care Teams Edge Grinder Machine Relationship Specialty Start Date End Date Cas Galicia MD PCP - General Family Medicine 11/18/20 documented as of this encounter
--- OUTSIDE RECORDS SUMMARY | 2024-09-29 12:46 | XMS_ITS | Encounter Summary ---
Author Organization [facility] Address [address], [address] [place] [address] Care Team Providers Care School Cleaner Name Role Phone Cas Galicia MD Primary Care Provider + Encounter Details Date Type Department Care Team (Late st Contact Info) Description 09/16/2024 Orders Only [facility] [place] of [place] [id number] Loraine Ponce MA Moderate persistent asthma without complication Social History Tobacco Use Types Packs/Day Years [...] Description 03/19/2025 9:45 AM EST Office Visit [facility] Part of [address] [address] David Mcclure MD [address] [address] [place]; 6 mth follow up with Samuel Vega documented as of this encounter Visit Diagnoses Diagnosis Moderate persistent asthma without complication Unspecified asthma documented in this encounter Care Teams School Cleaner Relationship Specialty Start Date End Date Cas Galicia MD PCP - General 09/04/11 documented as of this encounter
--- OUTSIDE RECORDS SUMMARY | 2024-09-29 12:46 | XMS_ITS | Clinical Summary ---
Author Organization [facility] Address [address] [facility], [address] [place] [address] Care Team Providers Care Pelletising Extruder Operator Name Role Phone Cas Galicia MD Primary Care Provider + Allergies Active Allergy Reactions Criticality Noted Date Comments Zolpidem Other (See Comments) 06/21/2022 Muscle spasms Aspirin Rash Low 09/04/2011 Cefaclor Shortness Of Breath High 09/04/2011 Cefuroxime Axetil Rash Low 09/04/2011 Clindamycin/Lincomycin Rash Low 09/04/2011 Erythromycin Shortness Of Breath High 09/04/2011 Eucalyptus Oil 10/23/2020 Gatifloxacin Diarrhea 12/15/2020 Iodides Anaphylaxis High 09/04/2011 Latex Swelling,Rash Low 09/04/2011 Lavender Oil Anaphylaxis High 06/13/2020 Ibuprofen Micronized Medium 09/04/2011 Due to clotting disorder-Aleve Norethindrone-Eth Estradiol 09/04/2011 Chest hurt and legs turned black -- saw Dr. Jorge London Penicillins Rash Low 09/04/2011 Shellfish-Derived Products Hives,Rash Low 01/08/2022 Sulfa Antibiotics 03/21/2015 Valacyclovir Shortness Of Breath High 2021 Menthol Hives 02/27/2022 Vioxx 09/04/2011 Bupropion Other (See Comments) 06/21/2022 Reports like seizure activity and the fall asleep Drospirenone-Ethinyl Estradiol 09/04/2011 Makers her asthma flair up Medications diphenhydrAMINE (BENADRYL) 50 MG capsule Take 1 capsule by mouth every 6 hours as needed for Itching or Sleep Active sertraline (ZOLOFT) 100 MG tablet Take 1 tablet by mouth daily Active lamoTRIgine (LAMICTAL) 150 MG tablet Take 1 tablet by mouth daily Active EPINEPHrine (EPIPEN 2-ERMA) 0.3 MG/0.3ML SOAJ injection Inject 0.3 mLs into the muscle once as needed (severe allergic reaction) 2 each 1 06/05/19 22 Active zonisamide (ZONEGRAN) 100 MG capsule Take 2 capsules by mouth daily Active Ubrogepant (UBRELVY) 100 MG TABS Take 100 mg by mouth once as needed 08/25/19 22 Active B-12, Methylcobalamin, 1000 MCG SUBL DISSOLVE 1 TABLET UNDER THE TONGUE ONCE DAILY 08/12/19 22 Active fluticasone (VERAMYST) 27.5 MCG/SPRAY nasal spray 2 sprays by Nasal route daily Active D-5000 125 MCG (5000 UT) TABS tablet TAKE 1 TABLET BY MOUTH EVERY DAY 08/04/19 22 Active DULoxetine (CYMBALTA) 30 MG extended release capsule Take 2 capsules by mouth daily Active albuterol sulfate HFA (PROVENTIL;VENTOLIN ;PROAIR) 108 (90 Base) MCG/ACT inhaler Inhale 1 puff into the lungs every 6 hours as needed for Wheezing 18 g 3 01/12/20 22 Active acetaminophen (TYLENOL) 500 MG tablet Take 1 tablet by mouth every 6 hours as needed for Pain 30 tablet 01/31/20 22 Active AJOVY 225 MG/1.5ML SOAJ 01/18/20 22 Active levothyroxine (SYNTHROID) 100 MCG tablet Take 1 tablet by mouth Daily 02/22/19 23 Active Levocetirizine Dihydrochloride (XYZAL PO) Take by mouth in the morning and at bedtime Active baclofen (LIORESAL) 10 MG tablet Take 2 tablets by mouth at bedtime 10-20 mg nightly Active azelastine (ASTELIN) 0.1 % nasal spray 1 spray by Nasal route 2 times daily Use in each nostril as directed Active pyRIDostigmine (MESTINON) 180 MG extended release tablet Take 1 tablet by mouth 2 times daily Active calcium carbonate (TUMS) 500 MG chewable tablet Take 2 tablets by mouth 2 times daily as needed Active pantoprazole (PROTONIX) 40 MG tablet TAKE 1 TABLET BY MOUTH EVERY DAY BEFORE BREAKFAST 90 tablet 1 04/10/19 25 Active Additional Information Patient not taking.Reported on 09/18/2024 Magnesium Glycinate 100 MG CAPS Take by mouth Acti ve montelukast (SINGULAIR) 10 MG tablet Take 1 tablet by mouth nightly 30 tablet 5 04/18/19 25 Active tiotropium-olodater ol (STIOLTO RESPIMAT) 2.5-2.5 MCG/ACT AERS Inhale 2 puffs into the lungs daily 1 each 6 04/18/19 Active Additional Information Patient not taking.Reported on 09/18/2024 liothyronine (CYTOMEL) 5 MCG tablet Take 1 tablet by mouth daily 09/06/19 25 Active sAXagliptin (ONGLYZA) 5 MG TABS tablet Take 1 tablet by mouth daily Active SYMBICORT 160-4.5 MCG/ACT AERO Inhale 2 puffs into the lungs 2 times daily 06/13/19 23 025 Discontin ued(Alter jenni therapy) montelukast (SINGULAIR) 10 MG tablet TAKE 1 TABLET BY MOUTH EVERY DAY AT NIGHT 90 tablet 3 10/31/19 24 025 Discontin ued(DUPLI DANIELA) Active Problems Problem Noted Date Diagnosed Date RSV (respiratory syncytial virus infection) 07/2021 Adenovirus infection 01/10/2022 Acute asthma exacerbation 01/10/2022 Diabetes mellitus 01/09/2022 Asthma exacerbation attacks 01/08/2022 Abdominal pain, acute, right lower quadrant 12/07 Encounters Date Type Department Care Team Description 09/18/2024 10:45 AM EDT Office Visit [facility] [address] [address] Nabor Yancey, ROCK CONTRACTOR - PERSONNEL COUNSELOR Multiple environmental allergies (Primary Dx); Moderate persistent asthma without complication; Chronic sinusitis, unspecified location; KATELIN (obstructive sleep apnea) 09/18/2024 Abstract [facility] Part of [address] [address] Nabor Yancey, ROCK CONTRACTOR - PERSONNEL COUNSELOR 09/18/2024 Abstract [facility] Part of [place] [phone] Nabor Yancey, ROCK CONTRACTOR - PERSONNEL COUNSELOR 09/16/2024 Orders Only [facility] Part of [place] [phone] Loraine Ponce MA Moderate persistent asthma without complication 09/16/2024 Abstract [facility] Part of [place] [phone] David Mcclure MD 08/22/2024 10:21 AM EDT - 08/24/2024 11:59 PM EDT Hospital Encounter [facility] Non-Invasive Cardiology [address] [place] [address] Edema, unspecified type; Palpitations with regular cardiac rhythm Discharge Disposition: Home or Self Care 08/15/2024 Transcribe Orders [facility] [address] [place] [address] Macrina Wadsworth, ROCK CONTRACTOR - PERSONNEL COUNSELOR Edema, unspecified type (Primary Dx); Palpitations with regular cardiac rhythm from Last 3 Months Immunizations Immunization Administration Dates Next Due Influenza Virus Vaccine 11/20/2019 Family History Medical History Relation Name Comments Diabetes Father Heart Disease Father Hypertension Father Diabetes Mother Hypertension Mother Relation Name Status Comments Father Mother Social History Tobacco Use Types Packs/Day Years Used Date Smoking Tobacco: Never Smokeless Tobacco: Never Tobacco Cessation:Counseling Given: Not Answered Alcohol Use Standard Drinks/Week Comments No 0 [...] file Not on file Not on file Last Filed Vital Signs [...] Mass Index 38.76 09/18/2024 11:02 AM EDT Plan of Treatment Upcoming Encounters Date Type Department Care Team (Late st Contact Info) Description 03/19/2025 9:45 AM EST Office Visit [facility] [place] [address] David Mcclure MD [facility] [place] [address] KATELIN; 6 mth follow up with [employer] Maintenance Due Date Last Done Comments Diabetic foot exam 12/20/1993 Lipids 12/20/1993 Depression Screen 1995 Varicella vaccine (1 of 2 - 13+ 2-dose series) 12/20/1996 HIV screen 12/20/1998 Diabetic Alb to Cr ratio (uACR) test 12/20/2001 Diabetic retinal exam 12/20/2001 Hepatitis C screen 12/20/2001 DTaP/Tdap/Td vaccine (1 - Tdap) 12/20/2002 Hepatitis B vaccine (1 of 3 - 19+ 3-dose series) 12/20/2002 Pneumococcal 0-49 years Vaccine (1 of 2 - PCV) 12/20/2002 A1C test (Diabetic or Prediabetic) 01/09/2023 01/09/2022, 09/09/2011 COVID-19 Vaccine (2023- season) 2023 GFR test (Diabetes, CKD 3-4, OR last GFR 15-59) 12/19/2023 12/18/2022, 01/30/2022, 01/09/2022, Additional history exists Breast cancer screen 2023 Flu vaccine (#1) 09/05/2024 11/20/2019, 02/2019, 10/27/2019 Cervical cancer screen Discontinued Pap smear Discontinued 03/17/2013, 02/23/2012 Diabetes screen Discontinued 01/09/2022, 05/2011, 09/09/2011 HPV (without or with Pap) Discontinued HPV vaccine (No Doses Required) Completed Hepatitis A vaccine Aged Out No longe r eligible based on patient's age to complete this topic Hib vaccine Aged Out No longer eligi ble based on patient's age to complete this topic Meningococcal (ACWY) vaccine Aged Out No longer eligible based on patient's age to complete this topic Meningococcal B vaccine Aged Out No l onger eligible based on patient's age to complete this topic Polio vaccine Aged Out No longer elig ible based on patient's age to complete this topic Procedures Procedure Name Priority Date/Time Associated Diagnosis Comments ECHO (TTE) COMPLETE Routine 08/22/2024 1 1:00 AM EDT Edema, unspecified type Palpitations with regular cardiac rhythm BASIC METABOLIC PANEL STAT 12/18/2022 4:10 PM EST HEMOGLOBIN A1C Routine 01/09/2022 5:40 AM EST DISPENSING LEAD CYTOLOGY Routine 03/17/2013 10:13 AM EST from Last 3 Months or Most Recently Relevant to Health Maintenance Results * ECHO (TTE) COMPLETE (08/22/2024 11:00 AM EDT) LV EDV A2C 86 mL [facility] CV CPACS LV EDV A4C 101 mL [facility] CV CPACS LV ESV A2C 32 mL [facility] CV CPACS LV ESV A4C 42 mL [facility] CV CPACS IVSd 0.8 0.6 - 0.9 cm BS CV CPACS LVIDd 4.7 3.9 - 5.3 cm [facility] CV CPACS LVIDs 3.2 cm [facility]ACS LVOT Mean Gradient 3 mmHg [facility] CV [facility]ACS LVOT VTI 26.3 cm [facility]ACS LVOT Peak Velocity 1.2 m/s BS CV CPACS LVOT Peak Gradient 6 mmHg BS CV CPACS LVPWd 0.8 0.6 - 0.9 cm BS CV CPACS LV E' Lateral Velocity 14.60 cm/s [facility] LV Ejection Fraction A2C 63 % [facility] CV CPACS LV Ejection Fraction A4C 59 % BS CV CPACS EF BP 60 55 - 100 % BS CV CPACS LA Minor [place] 4.9 cm [facility] CV CPACS LA Major [place] 5.5 cm [facility] CV CPACS LA Area 2C 16.6 cm2 [facility] CV CPACS LA Area 4C 19.3 cm2 [facility] CV CPACS LA Volume MOD A2C 44 22 - 52 mL BS CV CPA CS LA Volume MOD A4C 51 22 - 52 mL BS CV CPA CS LA Volume BP 50 22 - 52 mL BS CV CPACS AV Cusp Mmode 1.8 cm BS CV CPACS AV Mean Gradient 5 mmHg BS CV CPACS AV VTI 34.3 cm BS CV CPACS AV Mean Velocity 1.0 m/s BS CV CPACS AV Peak Velocity 1.6 m/s BS CV CPACS AV Peak Gradient 10 mmHg BS CV CPACS Aortic Root 1.6 cm BS CV CPACS Ascending Aorta 2.2 cm [facility] CV CPACS Sinotubular Junction 1.8 cm [facility]ACS Aortic Sinus Valsalva 2.6 cm [facility]ACS MV E Wave Deceleration Time 174.0 ms BS CV CPACS MV A Velocity 0.54 m/s BS CV CPACS MV E Velocity 0.79 m/s BS CV CPACS AL Max Velocity 0.7 m/s BS CV CPACS Pulmonary Artery EDP 2 mmHg BS CV CPACS PV Max Velocity 1.0 m/s BS CV CPACS PV Peak Gradient 4 mmHg BS CV CPACS TAPSE 2.4 >=1.7 cm BS CV CPACS TR Max Velocity 2.07 m/s BS CV CPACS TR Peak Gradient 17 mmHg [facility] CV CPACS Body Surface Area 2.14 m2 [facility] CV CPACS Fractional Shortening 2D 32 28 - 44 % BS CV CPACS LV ESV Index A4C 20 mL/m2 BS CV CPACS LV EDV Index A4C 49 mL/m2 [facility] CV CPACS LV ESV Index A2C 16 mL/m2 BS CV CPACS LV EDV Index A2C 42 mL/m2 [facility] CV CPACS LVIDd Index 2.29 cm/m2 BS CV CPACS LVIDs Index 1.56 cm/m2 [facility] CV CPACS LV RWT Ratio 0.34 [facility] CPACS LV Mass 2D 122.3 67 - 162 g BS CV CPACS LV Mass 2D Index 59.6 43 - 95 g/m2 [facility] CV CPACS MV E/A 1.46 [facility] CV CPACS E/E' Lateral 5.41 [facility] CPACS LA Volume Index BP 24 16 - 34 ml/m2 [facility] CV CPACS LA Volume Index MOD A2C 21 16 - 34 ml/m2 [facility] CV CPACS LA Volume Index MOD A4C 25 16 - 34 ml/m2 [facility] CV CPACS Ao Root Index 0.78 cm/m2 [facility] CV CPACS Aortic Sinus Valsalva Index 1.27 cm/m2 [facility] CV CPACS Ascending Aorta Index 1.07 cm/m2 [facility] CV CPACS AV Velocity Ratio 0.75 [facility] CV CPACS LVOT:AV VTI Index 0.77 [facility] CV CPACS Est. RA Pressure 3 mmHg [facility] CV CPACS RVSP 20 mmHg [facility] CV CPACS EF Physician 60 % [facility] CV CPACS Anatomical Region Laterality Modality Echocardiography Narrative 08/22/2024 1:59 PM EDT Left Ventricle: Normal left ventricular systolic function with a visually estimated EF of 55 - 60%. Left ventricle size is normal. Normal wall thickness. Normal wall motion. Normal diastolic function. Right Ventricle: Right ventricle size is normal. Normal systolic function. Mitral Valve: Mild regurgitation. Tricuspid Valve: Trace regurgitation. RVSP is 20 mmHg. Aorta: Normal sized aortic root and ascending aorta. Aortic Sinus Valsalva is 2.6 cm. Ascending Aorta is 2.2 cm. Pericardium: The pericardium is normal. No pericardial effusion. Left Ventricle Normal left ventricular systolic function with a visually estimated EF of 55 - 60%. Left ventricle size is normal. Normal wall thickness. Normal wall motion. Normal diastolic function. Right Ventricle Right ventricle size is normal. Normal systolic function. Left Atrium Left atrium size is normal. Right Atrium Right atrium size is normal. IVC/SVC IVC diameter is normal or and decreases greater than 50% during inspiration; therefore the estimated right atrial pressure is normal (~3 mmHg). IVC size is normal. Mitral Valve Valve structure is normal. Mild regurgitation. No stenosis noted. Tricuspid Valve Valve structure is normal. Trace regurgitation. RVSP is 20 mmHg. No stenosis noted. Aortic Valve Valve structure is normal. No regurgitation. No stenosis. Pulmonic Valve The pulmonic valve visualization is suboptimal but appears to be functioning normally. Trace regurgitation. No stenosis noted. Ascending Aorta Normal sized aortic root and ascending aorta. Aortic Sinus Valsalva is 2.6 cm. Ascending Aorta is 2.2 cm. Pericardium The pericardium is normal. No pericardial effusion. Study Details Image quality: adequate. No contrast was given. Macrina Wadsworth ROCK CONTRACTOR - PERSONNEL COUNSELOR CV ECHO ORDERABLES Fi nal Result * (ABNORMAL) Basic Metabolic Panel (12/18/2022 4:10 PM EST) Sodium 138 135 - 144 mmol/L 12/18/2022 4:10 PM [facility] Potassium 4.0 3.7 - 5.3 mmol/L 12/18/2022 4:10 PM [facility] Chloride 102 98 - 107 mmol/L 12/18/2022 4:10 PM [facility] CO2 26 20 - 31 mmol/L 12/18/2022 4:10 PM [facility] Anion Gap 10 9 - 17 mmol/L 12/18/2022 4:10 PM [facility] Glucose 97 70 - 99 mg/dL 12/18/2022 4:10 PM [facility] BUN 12 6 - 20 mg/dL 12/18/2022 4:10 PM [facility] Creatinine 1.0(H) 0.5 - 0.9 mg/dL 12/18/2022 4:10 PM EST [facility] Est, Patricia Filt Rate >60 >60 mL/min/1.7 3m2 12/18/2022 4:10 PM EST [facility] Comment: These results are not intended for [...] following therapy that affects renal tubular secretion. BUN/Creatinine Ratio 12 9 - 20 12/18/2022 4:10 PM EST [facility] Calcium 9.5 8.6 - 10.4 mg/dL 12/18/2022 4:10 PM EST [facility] Blood BLOOD SPECIMEN / Unknown 12/18/2022 4:10 PM EST 12/18/2022 4:21 PM EST us Araseli Barrett MD CHEMISTRY ORDERABLES Final Resul t [facility] [address] [place] [address] * Hemoglobin A1c (01/09/2022 5:40 AM EST) Hemoglobin A1C 5.7 4.0 - 6.0 % 01/09/2022 5:40 AM EST [facility] Estimated Avg Glucose 117 mg/dL 01/09/2022 5:40 AM EST [facility] Comment: The ADA and AACC recommend providing the estimated average glucose result to permit better patient understanding of their HBA1c result. 01/09/2022 5:40 AM EST 01/09/2022 12:31 PM EST us Lore Rosado APRN - PERSONNEL COUNSELOR CHEMISTRY ORD ERABLES Final Result Performing Organization Address City/[facility]/ZIP Co de Phone Number [facility] [address] [place] [address] [facility] [address] [place] [id number] [place] [address] * DISPENSING LEAD Cytology (03/17/2013 10:13 AM EST) Cytology Report (NOTE) [id number] [facility] [employer] [facility] ANATOMIC PATHOLOGY [address] [place] [address] [phone] GYNECOLOGIC CYTOLOGY REPORT Patient Name: VIJAYA TRAN MR#: [id number] Specimen #[id number] Final Diagnosis CERVICAL MATERIAL, (THIN PREP VIAL): Specimen Adequacy: Satisfactory for evaluation. - Paucity/absence of endocervical transformation zone component. Descriptive Diagnosis: Negative for intraepithelial lesion or malignancy. TANYA Luna(ASCP) Electronically Signed Out dga/03/21/2013 Source: 1: CERVICAL MATERIAL, (THIN PREP VIAL) 03/21/2013 12:00 AM EST [facility] 03/17/2013 10:1 3 AM EST 03/17/2013 10:13 AM EST Loraine Morgan DO PATHOLOGY/CYTOLOGY ORDERABLES Final Result [facility] [address] [place], [place] [address] [phone] from Last 3 Months or Most Recently Relevant to Health Maintenance Insurance BCBS OUT OF STATE BCBS OUT OF STATE Advance Directives Documents on File Type Date Recorded Patient Boat Designer Expl anation ACP-Advance Directive 01/12/2022 2:29 PM ACP-Power of Animal Care Service Worker 01/12/2022 2:29 PM * Full Code (Latest Code Status on File) Date Activated Date Inactivated Comments 01/08/2022 5:06 PM 01/11/2022 3:07 PM * Full Code Date Activated Date Inactivated Comments 12/30/2011 10:09 AM 12/31/2011 4:00 PM Healthcare Agents on File Name Relationship Healthcare Agent Relationship Communication Sean Tran Spouse Primary Decision Maker Care Teams Pelletising Extruder Operator Relationship Specialty Start Date End Date Cas Galicia MD PCP - General 09/04/11
--- OUTSIDE RECORDS SUMMARY | 2024-09-29 12:46 | XMS_ITS | Encounter Summary ---
Author Organization [facility] Address [address] [facility], [address] [place] [address] Care Team Providers Care Electrical Accessories Ii Assembler Name Role Phone Cas Galicia MD Primary Care Provider + Encounter Details Date Type Department Care Team (Late st Contact Info) Description 09/18/2024 Abstract [facility] Part of [address] [address] Nabor Yancey, RAILWAY SIGNAL TECHNICIAN - BUTCHER MEAT [address] [place] [address] Social History Tobacco Use Types Packs/Day Years [...] Upcoming Encounters Date Type Department Care Team ([facility] st Contact Info) Description 03/19/2025 9:45 AM EST Office Visit [facility] Part of [address] [address] David Mcclure MD [address] [address] KATELIN; 6 mth follow up with Samuel Vega documented as of this encounter Visit Diagnoses Not on filedocumented in this encounter Care Teams Electrical Accessories Ii Assembler Relationship Specialty Start Date End Date Cas Galicia MD PCP - General 09/04/11 documented as of this encounter
--- OUTSIDE RECORDS SUMMARY | 2024-09-29 12:46 | XMS_ITS | Encounter Summary ---
Author Organization [facility] Address [address] [place] [address] Care Team Providers Care Equine Manager Name Role Phone Cas Galicia MD Primary Care Provider Sai Perez MD Unavailable [phone] Rubens Tim DO Unavailable [phone] Source Comments In the event this information is protected by the Federal Confidentiality of Alcohol and Drug AbusePatient Records regulations: The Federal rules restrict any use of the information to criminally investigate or prosecute any alcohol or drug abuse patient.[facility] Encounter Details Date Type Department Care Team (Late st Contact Info) Description 10/17/2021 Get Medical Advice Pulmonary Medicine [address] [place] [phone] TimoteoLanden APRN.[facility] [address] [place] [address] Symptoms Social History Tobacco Use Types Packs/Day Years Used Date Smoking Tobacco: Never Smokeless Tobacco: Never Alcohol Use Standard Drinks/Week Comments Not Currently 0 (1 standard drink = 0.6 oz pur e alcohol) PHQ-2 Answer Date Recorded PHQ-2 score 2 10/17/2021 Area Deprivation Index Answer Date Aramis rded National Score (1-100), lower number is lower ri sk 73 08/15/2021 State Score (1-10), lower number is lower risk N ot on file 08/15/2021 Data from: https://www.neighborhoodatlas.medicine.[facility]/. Last address used for calculation [...] suspected to have Coronavirus/COVID-19? No / Unsure 09/30/2021 9:54 AM EDT documented as of this encounter [...] Description 09/30/2024 9:15 AM EDT Office Visit [facility] [address] [place] [address] 1 year follow up 09/30/2024 9:30 AM EDT Visit (SP) Office Hematology/Oncology [address] [place] [address] Shweta Masters APRN.MAOR[facility] PHYSIOTHERAPIST [address] [place] [address] 1 year follow up documented as of this encounter Visit Diagnoses Diagnosis Hot flashes- Primary Symptomatic menopausal or female climacteric states Post-acute sequelae of COVID-19 (PASC) Flushing Chills (without fever) Dusky discoloration of skin Temperature intolerance Other general symptoms documented in this encounter Care Teams Equine Manager Relationship Specialty Start Date End Date Cas Galicia MD PCP - General Family Medicine 02/20/14 Sai Perez MD [address] [facility] [place] [address] Primary Staff Physician Cardiology 07/21/21 Rubens Tim DO [address] [place] [address] [place] [address] Referring Clinical Specialist Medical Device 08/05/21 documented as of this encounter
--- OUTSIDE RECORDS SUMMARY | 2024-09-29 12:46 | XMS_ITS | Encounter Summary ---
Author Organization [facility] Address [address] [place] [address] Care Team Providers Care Cabinet Mounter Name Role Phone Cas Galicia MD Primary Care Provider [phone] Sai Perez MD Unavailable [phone] Rubens Tim DO Unavailable [phone] Source Comments In the event this information is protected by the Federal Confidentiality of Alcohol and Drug AbusePatient Records regulations: The Federal rules restrict any use of the information to criminally investigate or prosecute any alcohol or drug abuse patient.[facility] Encounter Details Date Type Department Care Team (Late st Contact Info) Description 08/31/2021 [facility] [address] [place] [address] Provider, [facility]cf Referral to Wellness Social History Tobacco Use Types Packs/Day Years [...] N ot on file 08/15/2021 Data from: https://www.neighborhoodatlas.medicine.[facility]/. Last address used for calculation 6060 [...] AM EDT Office Visit [facility] [address] [place] [address] [place] [address] 1 year follow up 09/30/2024 9:30 AM EDT Visit (SP) Office Hematology/Oncology [address] [place] [address] [place] [address] Shweta Masters APRN.[address] [place] [address] 1 year follow up documented as of this encounter Visit Diagnoses Not on filedocumented in this encounter Care Teams Cabinet Mounter Relationship Specialty Start Date End Date Cas Galicia MD PCP - General Family Medicine 02/20/14 Sai Perez MD [address] [facility] [place] [address] Primary Staff Physician Cardiology 07/21/21 Rubens Tim DO [address] [place] [address] [place] [address] Referring Residential Energy Auditor 08/05/21 documented as of this encounter
--- OUTSIDE RECORDS SUMMARY | 2024-09-29 12:46 | XMS_ITS | Encounter Summary ---
Author Organization [facility] Address [address] [place] [address] Care Team Providers Care Marine Structural Welder Name Role Phone Cas Galicia MD Primary Care Provider [phone] Sai Perez MD Unavailable [phone] Rubens Tim DO Unavailable [phone] Source Comments In the event this information is protected by the Federal Confidentiality of Alcohol and Drug AbusePatient Records regulations: The Federal rules restrict any use of the information to criminally investigate or prosecute any alcohol or drug abuse patient.[facility] Encounter Details Date Type Department Care Team (Late st Contact Info) Description 10/17/2021 Get Medical Advice [facility] Use It Better [address] [place], [place] [id number] Dayanna Sotomayor, [place] [address] [place] [address] Genetic testing Social History Tobacco Use Types [...] N ot on file 08/15/2021 Data from: https://www.neighborhoodatlas.medicine.[facility]/. Last address used for calculation [address] 08/15/2021 Comments No Sex and Gender Information Value Date Recorded Sex Assigned at Female 09/26/2020 5:05 PM EDT Legal Sex Female 4:12 PM EST Gender Identity Female 09/26/2020 5:05 PM EDT Sexual Orientation Straight 09/26/2020 5 :05 PM EDT COVID-19 Exposure Response Date Recorded [...] Description 09/30/2024 9:15 AM EDT Office Visit [facility] [address] [place] [address] 1 year follow up 09/30/2024 9:30 AM EDT Visit (SP) Office Hematology/Oncology [address] [place] [address] Shweta Masters APRN.NAIL FEEDER [address] [place] [address] 1 year follow up documented as of this encounter Visit Diagnoses Not on filedocumented in this encounter Care Teams Marine Structural Welder Relationship Specialty Start Date End Date Cas Galicia MD PCP - General Family Medicine 02/20/14 Sai Perez MD [address] [facility] [place] [address] Primary Staff Physician Cardiology 07/21/21 Rubens Tim DO [address] [place] [address] [place] [address] Referring Cathode Builder 08/05/21 documented as of this encounter
--- OUTSIDE RECORDS SUMMARY | 2024-09-29 12:46 | XMS_ITS | Encounter Summary ---
Author Organization [facility] Address [address] [facility], [address] [place] [address] Care Team Providers Care Panel Edge Sealer Name Role Phone Cas Galicia MD Primary Care Provider + Encounter Details Date Type Department Care Team (Late st Contact Info) Description 09/16/2024 Abstract [facility] Part of [place] [id number] David Mcclure MD [facility] [place] [address] Social History Tobacco Use Types Packs/Day Years [...] Upcoming Encounters Date Type Department Care Team ([facility] st Contact Info) Description 03/19/2025 9:45 AM EST Office Visit [facility] Part of [facility] [address] [place] [address] David Mcclure MD [address] [address] [place]; 6 mth follow up with Samuel Vega documented as of this encounter Visit Diagnoses Not on filedocumented in this encounter Care Teams Panel Edge Sealer Relationship Specialty Start Date End Date Cas Galicia MD PCP - General 09/04/11 documented as of this encounter
--- OUTSIDE RECORDS SUMMARY | 2024-09-29 12:46 | XMS_ITS | Encounter Summary ---
Author Organization [facility] Address [id number] [address] [place] [address] Care Team Providers Care Process Safety Management Engineer Name Role Phone Cas Galicia MD Primary Care Provider [phone] Encounter Details Date Type Department Care Team (Late Contact Info) Description 06/07/2022 Orders Only [facility] [address] [phone] Ref Prov, [place] [address] Social History Tobacco Use Types Packs/Day Years [...] Visit [facility] Department of [facility] [address] [address] Akila Ballard MD [address] [address] 12/26/2024 10:30 AM EST Office Visit [facility] Department of [facility] [address] [address] Stella Flowers, LOGISTICS TEAM [facility] [address] [address] documented as of this encounter Visit Diagnoses Not on filedocumented in this encounter Additional Health Concerns Assessment Noted Time PHQ-9 Depression Total Score: 0 10/06/19 22 10:43 AM EDT documented as of this encounter Care Teams Process Safety Management Engineer Relationship Specialty Start Date End Date Cas Galicia MD PCP - General Family Medicine 11/18/20 documented as of this encounter
--- OUTSIDE RECORDS SUMMARY | 2024-09-29 12:46 | XMS_ITS | Encounter Summary ---
Author Organization [facility] Address [address] [place] [address] Care Team Providers Care Production Broaching Machine Operator Name Role Phone Cas Galicia MD Primary Care Provider [phone] Sai Perez MD Unavailable Rubens Tim DO Unavailable [phone] Source Comments In the event this information is protected by the Federal Confidentiality of Alcohol and Drug AbusePatient Records regulations: The Federal rules restrict any use of the information to criminally investigate or prosecute any alcohol or drug abuse patient.[facility] Encounter Details Date Type Department Care Team (Late st Contact Info) Description 09/01/2021 [facility] [address] [place] [address] Provider, [facility] Referral Social History Tobacco Use Types Packs/Day Years [...] on file 08/15/2021 Data from: https://www.neighborhoodatlas.medicine.[facility]/. Last address used for calculation [address] [...] Description 09/30/2024 9:15 AM EDT Office Visit [facility] [address] [place] [address] [place] [address] 1 year follow up 09/30/2024 9:30 AM EDT Visit (SP) Office Hematology/Oncology [address] [place] [address] [place] [address] Shweta Masters APRN.[address] [place] [address] 1 year follow up documented as of this encounter Visit Diagnoses Not on filedocumented in this encounter Care Teams Production Broaching Machine Operator Relationship Specialty Start Date End Date Cas Galicia MD PCP - General Family Medicine 02/20/14 Sai Perez MD [address] [place] [address] Primary Staff Physician Cardiology 07/21/21 Rubens Tim DO [address] [place] [address] [place] [address] Referring Container Coordinator 08/05/21 documented as of this encounter
--- OUTSIDE RECORDS SUMMARY | 2024-09-29 12:46 | XMS_ITS | Encounter Summary ---
Author Organization [facility] Address [id number] [address] [place] [address] Care Team Providers Care Machine Sand Mixer Name Role Phone Cas Galicia MD Primary Care Provider [phone] Encounter Details Date Type Department Care Team (Late st Contact Info) Description 04/25/2022 Orders Only [facility] [address] [place] [phone] Moon Flores, MACHINIST SUPERVISOR OUTSIDE Acquired hypothyroidism Social History Tobacco Use Types Packs/Day Years [...] Description 11/24/2024 10:00 AM EDT Office Visit [facility], [facility] Department of [facility] [address] [phone] Akila Ballard MD [address] [address] 12/26/2024 10:30 AM EST Office Visit [facility], [facility] Department of [facility] [address] [facility] [employer] [address] [address] Stella Flowers APRN-MACY [address] [address] documented as of this encounter Procedures Procedure Name Priority Date/Time Associated Diagnosis Comments THYROID PROFILE INCLUDES TSH FT4 Routine 04/09/2022 Acquired hypothyroidism T3, FREE Routine 04/09/2022 Acquired hypothyroidism documented in this encounter Results * T3, free (04/09/2022) External T3 Free 1.29 0.80 - 1.90 SUNQUEST 04/09/2022 aSrah Maradiaga APRN-RADIOLOGY INTERVENTIONAL PHYSICIAN LAB BLOOD ORDERABLES Final Result Performing Organization Address [facility]/ZIP Co de Phone Number SUNQUEST * Thyroid profile includes TSH FT4 (04/09/2022) 04/09/2022 Sarah Maradiaga HOTEL GUEST SERVICE AGENT-RADIOLOGY INTERVENTIONAL PHYSICIAN LAB BLOOD ORDERABLES Final Result Performing Organization Address [facility]/ZIP Co de Phone Number SUNQUEST documented in this encounter Visit Diagnoses Diagnosis Acquired hypothyroidism Unspecified hypothyroidism documented in this encounter Additional Health Concerns Assessment Noted Time PHQ-9 Depression Total Score: 0 10/06/19 22 10:43 AM EDT documented as of this encounter Care Teams Machine Sand Mixer Relationship Specialty Start Date End Date Cas Galicia MD PCP - General Family Medicine 11/18/20 documented as of this encounter
--- OUTSIDE RECORDS SUMMARY | 2024-09-29 12:46 | XMS_ITS | Encounter Summary ---
Author Organization [facility] Address [address] [facility], [address] [place] [address] Care Team Providers Care Wastewater Treatment Plant Supervisor Name Role Phone Cas Galicia MD Primary Care Provider + Encounter Details Date Type Department Care Team (Late st Contact Info) Description 09/18/2024 Abstract [facility] Part of [address] [address] Nabor aYncey, BACKPACKERS MANAGER - REVENUE FIELD AUDITOR [address] [place] [address] Social History Tobacco Use Types Packs/Day Years [...] Upcoming Encounters Date Type Department Care Team ([facility] st Contact Info) Description 03/19/2025 9:45 AM EST Office Visit [facility] Part of [address] [address] David Mcclure MD [address] [address] [place]; 6 mth follow up with Samuel Vega documented as of this encounter Visit Diagnoses Not on filedocumented in this encounter Care Teams Wastewater Treatment Plant Supervisor Relationship Specialty Start Date End Date Cas Galicia MD PCP - General 09/04/11 documented as of this encounter
--- NOTE | 2024-09-29 12:47 | XR_ITS ---
[address] [address] Patient Name: LEANA TRAN MRN: [id number] date: 1985 Sex: F Assigned Patient Location: LAB Current Patient Location: LAB Accession/Order Number: [id number] Exam Date: 09/29/2024 13:00 Report Date: 09/29/2024 13:43 At the request of: JULITO DOWELL MD Procedure: XR forearm RT 2V RIGHT FOREARM - 2 views CLINICAL HISTORY: Fall. Arm pain COMPARISON: None FINDINGS: No focal soft tissue abnormality. No acute bony process. XR/XR forearm RT 2V IMPRESSION: NO ACUTE BONY PROCESS. Impression dictated by: Jairo Radford Jr.OKerri 09/29/2024 1:43 PM Dictation Location: [place] [address] Electronically authenticated by: [id number] Y Date: 09/29/2024 13:43
--- NOTE | 2024-09-29 12:47 | XR_ITS ---
The [address] [address] Patient Name: LEANA TRAN MRN: [id number] date: 1985 Sex: F Assigned Patient Location: LAB Current Patient Location: LAB Accession/Order Number: [id number] Exam Date: 09/29/2024 13:00 Report Date: 09/29/2024 13:43 At the request of: JULITO DOWELL MD Procedure: XR wrist RT 2V RIGHT WRIST - 2 views CLINICAL HISTORY: Fall. Right wrist pain COMPARISON: None FINDINGS: No focal soft tissue abnormality. No acute bony process. Joint spaces appear maintained. No bony erosions. XR/XR wrist RT 2V IMPRESSION: NO ACUTE BONY PROCESS. Impression dictated by: Jairo Radford Jr.OKerri 09/29/2024 1:43 PM Dictation Location: [place] [address] Electronically authenticated by: [id number] Y Date: 09/29/2024 13:43
--- NOTE | 2024-09-29 12:47 | XR_ITS ---
[address] [address] Patient Name: LEANA TRAN MRN: [id number] date: 1985 Sex: F Assigned Patient Location: LAB Current Patient Location: LAB Accession/Order Number: [id number] Exam Date: 09/29/2024 13:00 Report Date: 09/29/2024 13:44 At the request of: JULITO DOWELL MD Procedure: XR elbow RT 2V RIGHT ELBOW - 2 views CLINICAL HISTORY: Right Forearm Pain COMPARISON: None FINDINGS: No elbow joint effusion or acute bony process. Joint spaces appear maintained. XR/XR elbow RT 2V IMPRESSION: NO ACUTE BONY PROCESS. Impression dictated by: Michael Price Jr., D.OKerri 09/29/2024 1:44 PM Dictation Location: [place] [address] Electronically authenticated by: [id number] Y Date: 09/29/2024 13:44
== END 2024-09-29 12:41 | disposition home or self-care (01) ==
LOC: LAB 12:41
PROVIDERS: PCP Family Medicine; Visit Provider Family Medicine
DX: M79.631 Pain in right forearm (principal); M25.531 Pain in right wrist
CPT/HCPCS: 73070; 73090; 73100

== ENCOUNTER 2024-10-01 09:40 | Outpatient (RCR) | payer BC, SELFPAY | END 2024-11-08 11:01 | disposition home or self-care (01) | LOC: OT 09:40 | PROVIDERS: PCP Family Medicine; Visit Provider Family Medicine | DX: M25.531 Pain in right wrist (principal); M79.631 Pain in right forearm | CPT/HCPCS: 97014; 97022; 97035; 97110; 97140; 97166 ==

== ENCOUNTER 2024-10-08 08:48 | Outpatient (OUT) | payer BC, SELFPAY ==
--- OUTSIDE RECORDS SUMMARY | 2024-09-25 11:10 | XMS_ITS | Encounter Summary ---
Author Organization [facility] Address [address] [place] [address] Care Team Providers Care Press Assistant And Feeder Name Role Phone Cas Galicia MD Primary Care Provider [phone] Encounter Details Date Type Department Care Team (Latest Contact Info) Description 09/25/2024 11:10 AM EDT Ancillary Procedure [facility] [address] [place] [address] Awareness of heartbeats Social History Tobacco Use [...] exercise at this level? 30 min 07/21/2022 SD Safety & Environment Answer Date Rec orded [...] Jorge Montana MD CV IMPLANTABLE CARDIAC DEVICE DE OCEDURES Final Result CPACS documented in this encounter Visit Diagnoses Diagnosis Awareness of heartbeats documented in this encounter Care Teams Press Assistant And Feeder Relationship Specialty Start Date End Date Cas Galicia MD [address] [place] [address] PCP - General 1/13/23 documented as of this encounter
--- OUTSIDE RECORDS SUMMARY | 2024-09-25 15:45 | XMS_ITS | Encounter Summary ---
Author Organization [facility] Address [address] [place] [address] Care Team Providers Care Nuclear Supervising Operator Name Role Phone Cas Galicia MD Primary Care Provider [phone] Reason for Referral * Consultation (Routine) - Authorized Specialty Diagnoses / Procedures Referred By Contac t Referred To Contact Otolaryngology Diagnoses Chronic rhinosinusitis Procedures [place] OFFICE/OUTPATIENT [facility] 60 MINUTES Cas Galicia MD Phone: tel: fax: Terri Smith MD [address] [facility], [address] [address] Phone: tel: fax: Referral ID Status Reason Start Date Expiration Date Visits Requested Visits Authorized [id number] Authorized Specialty Services Required 09/25/2024 03/24/2025 1 1 Reason for Visit * Reason Comments Rash Sinusitis Pressure feels like something blocking sinus Ear Drainage Arm Injury Right arm pain with swelling and pain into elbow Encounter Details Date Type Department Care Team (Late st Contact Info) Description 09/25/2024 3:45 PM EDT Office Visit [facility] [address] [place] [address] Cas Galicia MD [address] [place] [phone] Chronic rhinosinusitis (Primary Dx); Right wrist pain; Right forearm pain Social History Tobacco Use Types Packs/Day Years Used Date Smoking Tobacco: Never Smokeless Tobacco: Never Alcohol Use Standard Drinks/Week Comments Never 0 (1 standard drink = 0.6 oz pur e alcohol) B1300 Health Literacy Answer Date Recor ded How often do you need to hav e someone help you when you read instructions, pamphlets, or other written material from your doctor or pharmacy? Never 08/08/2024 Humiliation, Afraid, Rape, and Kick questionnair e Answer Date Recorded Within the last year, have y ou been afraid of your partner or ex-partner? No 08/08/2024 Within the last year, have y ou been humiliated or emotionally abused in other ways by your partner or ex-partner? Patient declined 08/08/2024 Within the last year, have y ou been kicked, hit, slapped, or otherwise physically hurt by your partner or ex-partner? No 08/08/2024 Within the last year, have y ou been raped or forced to have any kind of sexual activity by your partner or ex-partner? No 08/08/2024 Social Connection and Isolat ion Panel [NHANES] Answer Date Recorded In a typical week, how many times do you talk on the phone with family, friends, or neighbors? More than three times a week 08/08/2024 How often do you get togethe r with friends or relatives? Patient declined 08/08/2024 How often do you attend [facility] or yarsani services? Patient declined 08/08/2024 Do you belong to any clubs o r organizations such as sikhism groups, unions, fraternal or athletic groups, or school groups? No 08/08/2024 How often do you attend meet ings of the clubs or organizations you belong to? Patient declined 08/08/2024 Are you , , di vorced, , never , or living with a partner? 08/08/2024 AUDIT-C Answer Date Recorded Q1: How often do you have a drink containing alcohol? Never 08/08/2024 Q2: How many drinks containi ng alcohol do you have on a typical day when you are drinking? Patient does not drink Q3: How often do you have si x or more drinks on one occasion? Never 08/08/2024 Overall Financial Resource Strain (CARDIA) Answe r Date Recorded How hard is it for you to pa y for the very basics like food, housing, medical care, and heating? Somewhat hard 08/08/2024 [facility] [place] [facility] - Occupational Stress Questionnaire Answer Date Recorded Do you feel stress - tense, restless, nervous, or anxious, or unable to sleep at night because your mind is troubled all the time - these days? Very much 08/08/2024 Exercise Vital Sign Answer Date Recorde d On average, how many days pe r week do you engage in moderate to strenuous exercise (like a brisk walk)? 6 days 08/08/2024 On average, how many minutes do you engage in exercise at this level? 60 min 08/08/2024 Hunger Vital Sign Answer Date Recorded Within the past 12 months, y ou worried that your food would run out before you got the money to buy more. Sometimes true Within the past 12 months, t he food you bought just didn't last and you didn't have money to get more. Never true 05/2024 PRAPARE - Transportation Answer Date Re corded In the past 12 months, has l ack of transportation kept you from medical appointments or from getting medications? No 05/2024 In the past 12 months, has l ack of transportation kept you from meetings, work, or from getting things needed for daily living? No 08/08/2024 Housing Stability Vital Sign Answer Ziyad e Recorded In the last 12 months, was t here a time when you were not able to pay the mortgage or rent on time? Patient declined 04/08/19 24 In the last 12 months, how many places have you lived? 1 04/08/2023 In the last 12 months, was t here a time when you did not have a steady place to sleep or slept in a nursing home (including now)? Patient declined 04/08/2023 Housing Stability Vital Sign Answer Ziyad e Recorded In the last 12 months, was t here a time when you were not able to pay the mortgage or rent on time? No 08/08/2024 In the past 12 months, how m any times have you moved where you were living? 0 08/08/2024 At any time in the past 12 m [facility], were you homeless or living in a nursing home (including now)? No 08/08/2024 Comments No Sex and Gender Information Value Date Recorded Sex Assigned at Not on file Legal Sex Female 6:40 PM EDT Gender Identity Not on file Sexual Orientation Not on file documented as of this encounter Last Filed Vital Signs Vital Sign Reading Time Taken Comments Blood Pressure 138/84 09/25/2024 3:50 PM EDT Pulse 67 09/25/2024 3:50 PM EDT Temperature 36.4 C (97.5 F) 09/25/2024 3:50 PM EDT Respiratory Rate 20 09/25/2024 3:50 PM EDT Oxygen Saturation 98% 09/25/2024 3:50 PM EDT Inhaled Oxygen Concentration - - Weight 103 kg (228 lb) 09/25/2024 3:50 PM EDT Height 162.6 cm (5' 4 ) 09/25/2024 3:50 PM EDT Body Mass Index 39.14 09/25/2024 3:50 PM EDT documented in this encounter Progress Notes * Cas Galicia MD - 09/25/2024 4:41 PM EDTAssociated Problem(s): Right wrist pain Pain after fall and not improving. Repeat x-ray and start PT. Treat with prednisone. If no improvement may need MRI and or ortho. * Cas Galicia MD - 09/25/2024 4:41 PM EDTAssociated Problem(s): Right forearm pain Pain after fall and not improving. Repeat x-ray and start PT. Treat with prednisone. If no improvement may need MRI and or ortho. * Cas Galicia MD - 09/25/2024 4:40 PM EDTAssociated Problem(s): Chronic rhinosinusitis Continued symptoms and feels like right nasal cavity plugged. Treat with antibiotics and steroids. Continue medication. Refer to ENT. * Cas Galicia MD - 09/25/2024 3:45 PM EDT Images from the original note were not included. Subjective Patient ID: Vijaya Del Angel is a 38 y.o. female who presents for Rash, Sinusitis (Pressure feels like something blocking sinus), Ear Drainage, and Arm Injury (Right arm pain with swelling and pain into elbow). C/o rash and sinus symptoms for several days. Chronic sinus problems and prior surgery. Recently with increased congestion and sinus pressure. Feels like right side of nose plugged. Pressure and painin ears. Taking xyzal and using saline sinus rinse. Reports pulmonology referred to ENT but not scheduled. C/o right arm pain for several week. Fell in end of August when going out to get mail and had syncope related to POTS. Fell and thinks tried to catch self with right arm. Pain in right wrist andforearm. Seen at urgent care 09/08 and x-ray forearm negative. Pain in hand and wrist. Pain into thumb side wrist and up forearm. Severe pain over radial head. Pain with pronation and supination. Pain to lift or use wrist. Review of Systems Respiratory: Negative for cough, [...] Problem List Items Addressed This Visit Chronic rhinosinusitis - Primary Continued symptoms and feels like right nasal cavity plugged. Treat with antibiotics and steroids. Continue medication. Refer to ENT. Relevant Medications predniSONE (Deltasone) 50 MG tablet doxycycline (Vibra-Tabs) 100 MG tablet Other Relevant Orders Ambulatory referral to ENT Right wrist pain Pain after fall and not improving. Repeat x-ray and start PT. Treat with prednisone. If no improvement may need MRI and or ortho. Relevant Orders XR wrist 1 or 2 views right Right forearm pain Pain after fall and not improving. Repeat x-ray and start PT. Treat with prednisone. If no improvement may need MRI and or ortho. Relevant Orders XR forearm 2 views right XR elbow 1 or 2 views right documented in this encounter Plan of Treatment Upcoming Encounters Date Type Department Care Team (Late st Contact Info) Description 12/01/2024 10:40 AM EDT Office Visit [facility] [address] [place] [address] Rubens Tim DO [address] [place] [address] 07/08/2025 8:20 AM EDT Office Visit [facility] [address] [place] [phone] Jodi Holden, PONCE [address] [place] [address] Scheduled Orders Name Type Priority Associated Diagnoses Orde r Schedule XR wrist 1 or 2 views right Imaging Routine Right wrist pain Expected: 09/25/2024, Expires: 09/25/2025 XR forearm 2 views right Imaging Routine Right forearm pain Expected: 09/25/2024, Expires: 09/25/2025 XR elbow 1 or 2 views right Imaging Routine Right forearm pain Expected: 09/25/2024, Expires: 09/25/2025 Scheduled Referrals Name Type Priority Associated Diagnoses Orde r Schedule Ambulatory referral to ENT Outpatient Referral Routine Chronic rhinosinusitis Expected: 09/25/2024 (Approximate), Expires: 03/28/2025 documented as of this encounter Visit Diagnoses Diagnosis Chronic rhinosinusitis- Primary Unspecified sinusitis (chronic) Right wrist pain Pain in joint, forearm Right forearm pain documented in this encounter Care Teams Nuclear Supervising Operator Relationship Specialty Start Date End Date Cas Galicia MD PCP - General Family Medicine 04/09/23 documented as of this encounter
--- OUTSIDE RECORDS SUMMARY | 2024-09-30 09:30 | XMS_ITS | Encounter Summary ---
Author Organization [facility] Address [address] [place] [address] Care Team Providers Care Chauffeur Name Role Phone Cas Galicia MD Primary Care Provider [phone] Sai Perez MD Unavailable [phone] Rubens Tim DO Unavailable [phone] Source Comments In the event this information is protected by the Federal Confidentiality of Alcohol and Drug AbusePatient Records regulations: The Federal rules restrict any use of the information to criminally investigate or prosecute any alcohol or drug abuse patient.[facility] Reason for Visit * Reason Comments Qualitative platelet disorder 1 year fol low up Encounter Details Date Type Department Care Team (Latest Contact Info) Description 09/30/2024 9:30 AM EDT Visit (SP) Office Hematology/Oncology [address] [place] [address] Shweta Masters APRN.LUNCH WAGON OPERATOR [address] [place] [address] POTS (postural orthostatic tachycardia syndrome) (Primary Dx); Bleeding disorder; Qualitative platelet disorder (HCC); Systemic lupus erythematosus, unspecified SLE type, unspecified organ involvement status (HCC); Celiac disease (HCC); Irritable bowel syndrome without diarrhea; History of 2019 novel coronavirus disease (COVID-19); Status post hysterectomy Social History Tobacco Use Types Packs/Day Years [...] is lower risk 8 10/02/2022 Data from: https://www.neighborhoodatlas.medicine.[facility].edu/. Last address used for calculation [address] 10/02/2022 Comments No Sex and Gender Information Value Date Recorded Sex Assigned at Female 09/26/2020 5:05 PM EDT Legal Sex Female 4:12 PM EST Gender Identity Female 09/26/2020 5:05 PM EDT Sexual Orientation Straight 09/26/2020 5: 05 PM EDT documented as of this encounter Last Filed Vital Signs Vital Sign Reading Time Taken Comments Blood Pressure 129/80 09/30/2024 8:54 AM EDT Pulse 70 09/30/2024 8:54 AM EDT Temperature 36.4 C (97.5 F) 09/30/2024 8:54 AM EDT Respiratory Rate 16 09/30/2024 8:54 AM EDT Oxygen Saturation 100% 09/30/2024 8:54 AM EDT Inhaled Oxygen Concentration - - Weight 104.3 kg (229 lb 15 oz) 09/30/2024 8:54 A M EDT Height 162.6 cm (5' 4.02 ) 09/30/2024 8:54 AM ED T Body Mass Index 39.45 09/30/2024 8:54 AM EDT documented in this encounter Functional Status * Are you deaf or do you have serious difficulty hearing? Answer Date of Assessment Author No 02/23/2014 2:04 PM EST Ang Thompson MA * Are you blind or do [...] Ang Page MA documented in this encounter Progress Notes * Shweta Masters APRN.LUNCH WAGON OPERATOR - 09/30/2024 9:01 AM EDT Images from the original note were not included. NAME: Vijaya Del Angel CLINIC NO.: [id number] DATE OF SERVICE: September 30, 2024 (Sonam) Some elements in this clinic note that are critical to medical decision making have been carefully reviewed and included from a prior clinic note dated: October 01, 2023 (Yves) Additional Clinicians involved in Vijaya Del Angel's care: Cas Galicia (PCP), Rajinder Collins (surgery), Rubens Tim (ObGyn), DIAGNOSIS: Undiagnosed bleeding disorder, work-up pending - transition of care. CASE SUMMARY / ASSESSMENT: 38 year old with an unclear bleeding disorder and abnormal platelet aggregometry Patient's clinical history suggestive of an underlying bleeding disorder. She has had multiple surgical, obstetric, gynecologic, and dental procedures in the past. Some of these procedures have been associated with postoperative bleeding complications. Patient also has multiple bleeding issues suchas easy gum bleeding on a regular basis. [...] dose). These findings were considered to be nonspecific.Patient does not take any aspirin or NSAIDs. 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 She has seen medical genetics and work-up is ongoing pending insurance authorization. Based on her previous surgical experiences, any surgical bleeding may be minimized by using FFP andplatelet transfusions prior to the procedure. Follow up [...] Cronin's group for POTS Now on [place] SUMMARIZED PLAN: FFP for major surgery RTC in 12 months - CBC, CMP AI ASSISTED A/P: 1. Bleeding disorder (D69.9) 2. 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 - Continue current management. - Will discuss with Dr. Jimenez regarding any additional recommendations or labs. 3. Systemic lupus erythematosus, unspecified SLE type, unspecified organ involvement status (HCC) (M32.9) Possible SLE; prior labs negative 4 years ago, but PCP is treating for lupus based on clinical presentation. - Will discuss with Dr. Jimenez regarding any additional recommendations or labs. 4. Celiac disease (HCC) (K90.0) 5. Irritable bowel syndrome without diarrhea (K58.9) Celiac disease managed with strict gluten-free diet; IBS with intermittent loose stools and rectal bleeding during flares or gluten exposure. - Continue strict gluten-free diet. 6. POTS (postural orthostatic tachycardia syndrome) (G90.A) 7. History of 2019 novel coronavirus disease (COVID-19) (Z86.16) 8. Status post hysterectomy (Z90.710) CASE HISTORY: Reverse Chronological Order July 2021, [...] with hemorrhage but patient does not remember ifany medical or surgical intervention was done. She [...] with minimal trauma, and a recent episode ofbright red blood per rectum in March 2021 [...] have been scanned in our EMR (2011). HPI: Updated Visit, September 30, 2024: Patient with a history of celiac disease, IBS, and hysterectomy in 2019 presents for follow-up. Jamesorts recurrent flu-like symptoms every 2 weeks, lasting 3-5 days, including myalgias, nausea, and loose stools with occasional rectal bleeding. These episodes have increased in frequency over the past year. She also notes a rash and is currently on antibiotics and steroids. Four years ago, lupus labs were negative, but her PCP is treating her for suspected lupus based on a recent rash. She is scheduled to follow up with her PCP in February. She follows a strict celiac diet and consumes potatoes daily. Recent labs show a potassium level of3.6 mmol/L. She has not been taking potassium supplements. Genetic testing was inconclusive due to financial constraints. She denies any other bleeding and reports no changes since her last visit with Dr. Jimenez last year. Dental work was completed recently. Updated Visit, October 01, 2023: Vijaya returns [...] mammogram results showing what appears to be benignlymph nodes. Chaperoned breast exam noted below. Discussion on lack of findings - tender bilateral axillary exam but no palpable masses. Discussion and education on continued hormonal cycles continuing despite hysterectomy causing breast changes. Will consider MRI breast is future if needed. 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 Her step- father has also . Updated Visit, November 10, [...] PERFORMANCE STATUS: 0 PHYSICAL EXAMINATION: Vitals: BP 129/80 Pulse 70 Temp (Src) 97.5 (Temporal) Resp 16 Ht 5' 4.016 (1.63m) Wt 229lb 15 oz (104.3kg) SpO2 100% LMP 2015 BMI 39.45 kg/(m^2). Body surface area is 2.17 meters squared. Exam limited to gross visualization where appropriate. Gen.: This is an age-appropriate patient in no acute distress. Head: Appears atraumatic with no visible lesions. Eyes: Pupils equally round and reactive to light, extraocular muscles are intact. Neck: Supple. Respiratory: Appears to be respiring comfortably. Neurologic: Nonfocal to gross visualization. Alert and oriented ??3. Psychiatric: No evidence of inappropriate anxiety or [...] Derived Hives Aleve [Naproxen] Angioedema Aspirin Angioedema Bupropion Other: See Comments Reports like seizure activity and the fall asleep Other reaction(s): Other (See Comments) Reports like seizure activity and the fall asleep Reports like seizure activity and the fall asleep Ceftin [Cefuroxime * Shortness of Breath Clindamycin Rash, Shortness of Breath Erythromycin Swelling, Shortness of Breath, Unknown Eucalyptus Anaphylaxis Gatifloxacin Diarrhea Lavender (Lavandula* Anaphylaxis Norethindrone-Ethin* Unknown Chest hurt and legs turned black -- saw Dr. Jorge London Penicillin G Benzat* Unknown Penicillins Rash, Itching Sulfa (Sulfonamide * Swelling, Shortness of Breath Vioxx [Rofecoxib] Unknown Makenna 28 [Drospirenon* Other: See Comments Skin discoloration of feet with OCPs Latex Rash, Itching, Unknown Skin cracks and bleeds MEDICATIONS: pyridostigmine (MESTINON) 60 mg tablet Take [...] mg/1.5 mL (AJOVY) Inject 1.5 mL subcutaneously onceevery month. Do not shake. UBRELVY 100 mg tablet TAKE 1 TABLET BY MOUTH AT ONSET OF MIGRAINE. MAY REPEAT IN 2 HOURS NEEDED.MAX 2 TABLET IN 24 HOURS cetirizine (ZYRTEC) 10 mg tablet Take 10 mg by mouth as needed. diphenhydrAMINE (BENADRYL) 25 mg tablet Take 50 mg by mouth every 6 hours as needed. zonisamide (ZONEGRAN) 100 mg capsule Take 1 capsule by mouth once daily. rimegepant (NURTEC ODT) 75 mg disintegrating tablet Take 1 tablet by mouth once daily as needed. Nomore than 1 dose in 24 hours. mecobalamin, [...] daily. LABORATORY VALUES: WBC (k/uL) Date Value 09/30/2024 9.84 RBC (m/uL) Date Value 09/30/2024 4.75 Hemoglobin (g/dL) Date Value 09/30/2024 14.1 Hematocrit (%) Date Value 09/30/2024 41.8 MCV (fL) Date Value 09/30/2024 88.0 MCH (pg) Date Value 09/30/2024 29.7 MCHC (g/dL) Date Value 09/30/2024 33.7 RDW-CV (%) Date Value 09/30/2024 11.9 Platelet Count (k/uL) Date Value 09/30/2024 254 MPV (fL) Date Value 09/30/2024 9.8 Glucose (mg/dL) Date Value 10/01/2023 136 (H) [...] ALT (U/L) Date Value 10/01/2023 25 DIAGNOSIS: No diagnosis found. PAST MEDICAL HISTORY Diagnosis Date Arachnoid cyst [...] DELIVERY ONLY HYSTERECTOMY NOSE SURGERY HX 2010 PAST SURGICAL HISTORY OF [employer] Stock Help REMOVAL GALLBLADDER TUBAL LIGATION HX Social History Tobacco Use Smoking status: Never Passive exposure: Past Smokeless tobacco: Never Vaping Use Vaping status: Never Used Substance Use Topics Alcohol use: Not Currently Drug use: Not Currently FAMILY HISTORY Problem Relation Age of Onset Diabetes Mother uncontrolled Hypertension Mother Heart Attack Mother First [place] at age 51 Cardiomyopathy Mother at age 52 Ischemic Heart Disease Mother Hypertension Father Diabetes Father Heart disease Father at age 57 Hypertension Sister Diabetes Sister Heart Son Being evaluated for HOCM (Dad has) Heart Son Being evaluated for HOCM (Dad has) other (Syncope) Son Neurocardiogenic Syncope Heart Son Being evaluated for HOCM (Dad has) Asthma Son No Ocular Disease Other .I spent a total of 20 minutes on the date of the service which included preparing to see the patient, [id number] patient care, completing clinical documentation, obtaining and/or reviewing separately obtained history, performing a medically appropriate examination, counseling and educating the pa tient/family/caregiver, communicating with other HCPs (not separately reported), independently interpreting results (not separately reported), and communicating results to the patient/family/caregiver. Shweta Masters APRN, SUPPLY CHAIN GENERALIST-C, OCN Hematology and Oncology Services Provided at: [place], [place] CC: Cas Cronin documented in this encounter Plan of Treatment Upcoming Encounters Date Type Department Care Team (Late st Contact Info) Description 09/29/2025 9:15 AM EDT Office Visit [facility] [address] [place] [address] [place] [address] 1 year follow up 09/29/2025 9:30 AM EDT Visit (SP) Office Hematology/Oncology [address] [place] [address] Shweta Masters APRN.LUNCH WAGON OPERATOR [address] [place] [address] 1 year follow up documented as of this encounter Visit Diagnoses Diagnosis POTS (postural orthostatic tachycardia syndrome)- Primary Tachycardia, unspecified Bleeding disorder Unspecified hemorrhagic conditions 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 Systemic lupus erythematosus, unspecified SLE type, unspecified organ involvement status (HCC) Celiac disease (HCC) Celiac disease Irritable bowel syndrome without diarrhea Irritable bowel syndrome History of 2019 novel coronavirus disease (COVID-19) Status post hysterectomy Acquired absence of both cervix and uterus documented in this encounter Care Teams Chauffeur Relationship Specialty Start Date End Date Cas Galicia MD PCP - General Family Medicine 02/20/14 Sai Perez MD [address] [place] [address] Primary Staff Physician Cardiology 07/21/21 Rubens Tim DO [address] [place] [address] [place] [address] Referring Doctor Of Osteopathy 08/05/21 documented as of this encounter
--- OUTSIDE RECORDS SUMMARY | 2024-10-08 08:51 | XMS_ITS | Encounter Summary ---
Author Organization [facility] Address [address] [place] [address] Care Team Providers Care Side Trimmer Name Role Phone Cas Galicia MD Primary Care Provider [phone] Cas Galicia MD Unavailable Encounter Details Date [...] week 04/08/2023 How often do you attend [facility] or zoroastrian services? Patient declined 04/08/2023 Do you belong to any clubs o r organizations such as sikh groups, unions, fraternal or athletic groups, or [...] medical care, and heating? Somewhat hard 04/08/2023 [facility] - [...] place to sleep or slept in a long-term (including now)? Patient declined 04/08/2023 Comments No [...] Office Visit [facility] [address] [place] [address] Rodolfo Tim DO [address] [place] [address] 07/08/2025 8:20 AM EDT Office Visit [facility] [address] [place] [address] Jodi Holden, PONCE [address] [place] [address] documented as of this encounter Procedures Procedure Name Priority Date/Time Associated Diagnosis Comments US PELVIS W/ TRANSVAGINAL 11/27/2023 10:36 AM EDT documented in this encounter Results * US PELVIS W/ TRANSVAGINAL (11/27/2023 10:36 AM EDT) Anatomical Region Laterality Modality Other 11/27/2023 10:3 6 AM EDT Narrative 11/27/2023 10:38 AM EDT The [address] [address] Ultrasound Report Signed Patient: VIJAYA TRAN MR#: [id number] : 1985 Acct:[id number] Age/Sex: 37 / F ADM Date: 11/26/23 Loc: US Attending Dr: Rodolfo Tim D.O. Ordering Physician: Rodolfo Tim D.O. Date of Service: 11/26/23 Procedure(s): US pelvis w/ transvaginal Accession Number(s): [id number] cc: Rodolfo Tim D.O.; Cas Galicia M.D. The [address] [address] Patient Name: VIJAYA TRAN MRN: [id number] date: 1985 Sex: F Assigned Patient Location: Current Patient Location: Accession/Order Number: [id number] Exam Date: 11/26/2023 07:40 Report Date: 11/27/2023 [...] Signed By: 11/27/23 1038 DD/ 1036 TD/TT: Heel Washer Stringing Machine Operator: Procedure Note Radiology, Radiologist, - 11/27/2023 [place] [address] Ultrasound Report Signed Patient: VIJAYA TRAN [facility]#: [id number] : 1985Acct:[id number] Age/Sex: 37 / FADM Date: 11/26/23 Loc: US Attending Dr: Rodolfo Tim D.O. Ordering Physician: Rodolfo Tim D.O. Date of Service: 11/26/23 Procedure(s): US pelvis w/ transvaginal Accession Number(s): [id number] cc: Rodolfo Tim D.O.; Cas Galicia M.D. The [address] [address] Patient Name: VIJAYA TRAN MRN: [id number] date: 1985 Sex: F Assigned Patient Location: Current Patient Location: Accession/Order Number: [id number] Exam Date: 11/26/2023 07:40 Report Date: 11/27/2023 [...] M.D. Signed By:11/27/23 1038 DD/ 1036 TD/TT: Heel Washer Stringing Machine Operator: us Generic External Data Provider [facility] Final Result documented in this encounter Visit Diagnoses Not on filedocumented in this encounter Care Teams Side Trimmer Relationship Specialty Start Date End Date Cas Galicia MD PCP - General Family Medicine 04/09/23 Cas Galicia MD [address] [place] [address] PCP - [place] [employer] 11/06/23 documented as of this encounter
--- OUTSIDE RECORDS SUMMARY | 2024-10-08 08:51 | XMS_ITS | Encounter Summary ---
Author Organization [facility] Address [address] [place] [address] Care Team Providers Care Utilities Ground Worker Name Role Phone Cas Galicia MD Primary Care Provider [phone] Cas Galicia MD Unavailable Cas Galicia MD Unavailable Encounter Details Date Type Department Care Team (Late st Contact Info) Description 09/26/2023 Abstract [facility] [address] [place] [address] Rubens Tim DO [address] [place], [place] [id number] Social History Tobacco Use Types Packs/Day Years [...] often do you attend chur ch or denominational services? Patient declined 04/08/2023 Do you belong to any clubs o r organizations such as baptism groups, unions, fraternal or athletic groups, or [...] medical care, and heating? Somewhat hard 04/08/2023 [facility] Occupat ional Health - Occupational Stress [...] place to sleep or slept in a custodial (including now)? Patient declined 04/08/2023 Comments No [...] Office Visit [facility] [address] [place] [address] Rubens Tim DO [address] [place] [address] 07/08/2025 8:20 AM EDT Office Visit [facility] [address] [place] [address] Jodi Holden, PA [address] [place], [place] [phone] documented as of this encounter Visit Diagnoses Not on filedocumented in this encounter Care Teams Utilities Ground Worker Relationship Specialty Start Date End Date Cas Galicia MD PCP - General Family Medicine 04/09/23 Cas Galicia MD [address] [place] [address] PCP - [employer] 06/06/23 Cas Galicia MD [address] [place] [address] PCP - [employer] 11/06/23 documented as of this encounter
--- OUTSIDE RECORDS SUMMARY | 2024-10-08 08:51 | XMS_ITS | Encounter Summary ---
Author Organization [facility] Address [address] [place] [address] Care Team Providers Care Lotteries Agent Name Role Phone Cas Galicia MD Primary Care Provider [phone] Cas Galicia MD Unavailable Cas Galicia MD [...] How often do you attend chur or mormonism services? Patient declined 04/08/2023 Do you belong [...] medical care, and heating? Somewhat hard 04/08/2023 [facility] Occupat ional [facility] - Occupational Stress Questionnaire Answer Date Recorded [...] place to sleep or slept in a usp (including now)? Patient declined 04/08/2023 Comments Unknown [...] Office Visit [facility] [address] [address] Rubens Tim DO [address] [facility] [place] [address] 07/08/2025 8:20 AM EDT Office Visit [facility] [address] [place] [address] Jodi Holden PA [address] [place], [place] [phone] documented as of this encounter Procedures Procedure Name Priority Date/Time Associated Diagnosis Comments US RENAL BI 08/21/2023 11:25 AM EDT documented in this encounter Results * US RENAL BI (08/21/2023 11:25 AM EDT) Anatomical Region Laterality Modality Other 08/21/2023 11:2 5 AM EDT Narrative 08/21/2023 11:28 AM EDT The [address] [address] Ultrasound Report Signed Patient: VIJAYA TRAN MR#: [id number] : 1985 Acct:[id number] Age/Sex: 37 / F ADM Date: 08/21/23 Loc: US Attending Dr: Loraine SERRA Ordering Physician: Loraine Burnham Date of Service: 08/21/23 Procedure(s): US renal BI Accession Number(s): [id number] cc: Cas Galicia M.D.; Loraine Burnham The [address] [address] Patient Name: VIJAYA TRAN MRN: [facility]:[id number] date: 1985 Sex: F Assigned Patient Location: US Current Patient Location: US Accession/Order Number: [id number] Exam Date: 08/21/2023 10:50 Report Date: 08/21/2023 [...] Signed By: 08/21/23 1128 DD/ 1125 TD/TT: Food And Beverage Server: Procedure Note Radiology, Radiologist, MD - 08/21/2023 [place] [address] Ultrasound Report Signed Patient: VIJAYA TRAN [facility]#: [id number] : 1985Acct:[id number] Age/Sex: 37 / FADM Date: 08/21/23 Loc: US Attending Dr: Loraine SERRA Ordering Physician: Loraine Brunham Date of Service: 08/21/23 Procedure(s): US renal BI Accession Number(s): [id number] cc: Cas Galicia M.D.; Loraine Burnham The [place] [id number] Patient Name: VIJAYA TRAN MRN: [id number] date: 1985 Sex: F Assigned Patient Location: US Current Patient Location: US Accession/Order Number: [id number] Exam Date: 08/21/2023 10:50 Report Date: 08/21/2023 [...] M.D. Signed By:08/21/23 1128 DD/ 1125 TD/TT: Food And Beverage Server: us Generic External Data Provider [facility] Final Result documented in this encounter Visit Diagnoses Not on filedocumented in this encounter Care Teams Lotteries Agent Relationship Specialty Start Date End Date Cas Galicia MD PCP - General Family Medicine 04/09/23 Cas Galicia MD [address] [place] [address] PCP - [employer] 06/06/23 Cas Galicia MD [address] [place] [address] PCP - [employer] 11/06/23 documented as of this encounter
--- OUTSIDE RECORDS SUMMARY | 2024-10-08 08:51 | XMS_ITS | Encounter Summary ---
Author Organization [facility] Address [address] [place] [address] Care Team Providers Care Military Science Instructor Name Role Phone Cas Galicia MD Primary Care Provider [phone] Cas Galicia MD Unavailable Cas Galicia MD [...] How often do you attend chur or scientologist services? Patient declined 04/08/2023 Do you belong to any clubs o r organizations such as judaism groups, unions, fraternal or athletic groups, or [...] [facility] of Occupat ional [facility] - Occupational Stress Questionnaire Answer Date [...] long-term (including now)? Patient declined 04/08/2023 Comments Unknown [...] EDT Office Visit [facility] [address] [facility] [place] [address] Rubens Tim DO [address] [facility] [place] [address] 07/08/2025 8:20 AM EDT Office Visit [facility] [address] [place] [address] Jodi Holden, PONCE [address] [place], [place] [address] documented as of this encounter Procedures Procedure Name Priority Date/Time Associated Diagnosis Comments US BREAST BI LIMITED 08/31/2023 1:39 PM EDT documented in this encounter Results * US BREAST BI LIMITED (08/31/2023 1:39 PM EDT) Anatomical Region Laterality Modality Other 08/31/2023 1:39 PM EDT Narrative 08/31/2023 1:40 PM EDT The [address] [address] Ultrasound Report Signed Patient: VIJAYA TRAN MR#: [id number] : 1985 Acct:[id number] Age/Sex: 37 / F ADM Date: 08/31/23 Loc: MAMMO Attending Dr: Rubens Tim D.O. Ordering Physician: Rubens Tim D.O. Date of Service: 08/31/23 Procedure(s): US breast BI limited Accession Number(s): [id number] cc: Rubens Tim D.O.; Cas Galicia M.D. Patient Name: VIJAYA TRAN MR#: [id number] : 1985 Exam Date: 08/31/2023 Ordering Doctor: [...] cervical cancer at age 48. LOCATION: The [facility] BREAST COMPOSITION: There are scattered areas [...] Signed By: 08/31/23 1340 DD/ 1339 TD/TT: Machinist Mate: Procedure Note Radiology, Radiologist, MD - 08/31/2023 [place] [address] Ultrasound Report Signed Patient: VIJAYA TRAN [facility]#: [id number] : 1985Acct:[id number] Age/Sex: 37 / FADM Date: 08/31/23 Loc: MAMMO Attending Dr: Rubens Tim D.O. Ordering Physician: Rubens Tim D.O. Date of Service: 08/31/23 Procedure(s): US breast BI limited Accession Number(s): [id number] cc: Rubens Tim D.O.; Cas Galicia M.D. Patient Name: VIJAYA TRAN MR#: [id number] : 1985 Exam Date: 08/31/2023 Ordering Doctor: DR Rubens Tim . RADIOLOGY REPORT PROCEDURE: MM TOMOSYNTHESIS DIAGNOSTIC BI, 08/31/2023, 12:52 US BREAST BI LIMITED, 08/31/2023, 13:08 COMPARISON: US BREAST ALRS LIMITED, 10/19/2021. MG MAMM DIAGNOSTIC 3DBIL CAD, 10/19/2021. INDICATIONS: Left breast lump Calculator Name NCI Breast Cancer Risk Assessment Tool 5 Year Breast Cancer Risk 0.50% Lifetime Breast Cancer Risk 9.90% Personal Breast Cancer No Personal Ovarian Cancer No Treatments None Family Cancers Mother with cervical cancer at age 50. LOCATION: The [facility] BREAST COMPOSITION: There are scattered areas [...] Dictated By: Jonas Humphrey M.D. Signed By:08/31/23 1345 DD/ 1339 TD/TT: Machinist Mate: us Generic External Data Provider [facility] Final Result documented in this encounter Visit Diagnoses Not on filedocumented in this encounter Care Teams Military Science Instructor Relationship Specialty Start Date End Date Cas Galicia MD PCP - General Family Medicine 04/09/23 Cas Galicia MD [address] [place] [address] PCP - [place] [employer] 06/06/23 Cas Galicia MD [address] [place] [address] PCP - [place] [employer] 11/06/23 documented as of this encounter
--- OUTSIDE RECORDS SUMMARY | 2024-10-08 08:51 | XMS_ITS | Encounter Summary ---
Author Organization [facility] Address [address] [place] [address] Care Team Providers Care Apricot Packer Name Role Phone Cas Galicia MD Primary Care Provider [phone] Sai Perez MD Unavailable [phone] Rubens Tim DO Unavailable [phone] Source Comments In the event this information is protected by the Federal Confidentiality of Alcohol and Drug AbusePatient Records regulations: The Federal rules restrict any use of the information to criminally investigate or prosecute any alcohol or drug abuse patient.[facility] Encounter Details Date Type Department Care Team (Late st Contact Info) Description 11/28/2021 Get Medical Advice Cardiology [address] [place] [address] Sai Perez MD [address] [place] [address] Follow up after testing Social [...] N ot on file 08/15/2021 Data from: https://www.neighborhoodatlas.medicine.[facility]/. Last address used for calculation [address] [...] Care Team (Jayant araujo Contact Info) Description 09/29/2025 9:15 AM EDT Office Visit [facility] [address] [address] 1 year follow up 09/29/2025 9:30 AM EDT Visit (SP) Office Hematology/Oncology [address] [facility] [facility] [place] [address] Shweta [place] APRN.SNUFF BOX FINISHER [address] [place] [address] 1 year follow up documented as of this encounter Visit Diagnoses Not on filedocumented in this encounter Care Teams Apricot Packer Relationship Specialty Start Date End Date Cas Galicia MD PCP - General Family Medicine 02/20/14 Sai Perez MD [address] [place] [address] Primary Staff Physician Cardiology 07/21/21 Rubens Tim DO [address] [place], [place] [address]Reji [place] [address] Referring Stock Fitter 08/05/21 documented as of this encounter
--- OUTSIDE RECORDS SUMMARY | 2024-10-08 08:51 | XMS_ITS | Encounter Summary ---
Author Organization [facility] Address [address] [place] [address] Care Team Providers Care Director Of Group Counseling Program Name Role Phone Cas Galicia MD Primary Care Provider Sai Perez MD Unavailable [phone] Rubens Tim DO Unavailable [phone] Source Comments In the event this information is protected by the Federal Confidentiality of Alcohol and Drug AbusePatient Records regulations: The Federal rules restrict any use of the information to criminally investigate or prosecute any alcohol or drug abuse patient.[facility] Encounter Details Date Type Department Care Team (Late st Contact Info) Description 12/20/2021 Patient Msg [facility] [address] [place] [address] Dayanna Sotomayor, [place] [address] [place] [address] genetic test result Social History [...] N ot on file 08/15/2021 Data from: https://www.neighborhoodatlas.medicine.[facility].edu/. Last address used for calculation [address] [...] Description 09/29/2025 9:15 AM EDT Office Visit [facility] [address] [place] [address] [place] [address] 1 year follow up 09/29/2025 9:30 AM EDT Visit (SP) Office Hematology/Oncology [address] [place] [address] Shweta [place] APRN.CERTIFIED REAL ESTATE APPRAISER [address] [place] [address] 1 year follow up documented as of this encounter Visit Diagnoses Not on filedocumented in this encounter Care Teams Director Of Group Counseling Program Relationship Specialty Start Date End Date Cas Galicia MD PCP - General Family Medicine 02/20/14 Sai Perez MD [address] [facility] [place] [address] Primary Staff Physician Cardiology 07/21/21 Rubens Tim DO [address] [place] [address] [place] [address] Referring Final Inspector Shuttle 08/05/21 documented as of this encounter
--- OUTSIDE RECORDS SUMMARY | 2024-10-08 08:51 | XMS_ITS | Encounter Summary ---
Author Organization [facility] Address [address] [place] [address] Care Team Providers Care Linux Network Engineer Name Role Phone Cas Galicia MD Primary Care Provider [phone] Cas Galicia MD Unavailable Cas Galicia MD [...] How often do you attend chur or buddhism services? Patient declined 04/08/2023 Do you belong to any clubs o r organizations such as adventist groups, unions, fraternal or athletic groups, or [...] medical care, and heating? Somewhat hard 04/08/2023 [facility] of Occupat ional [facility] - Occupational Stress Questionnaire Answer Date [...] place to sleep or slept in a fci (including now)? Patient declined 04/08/2023 Comments Unknown [...] EDT Office Visit [facility] [address] [facility] [address] Rubens Tim DO [address] [facility] [place] [address] 07/08/2025 8:20 AM EDT Office Visit [facility] [address] [place] [address] Jodi Holden, PONCE [address] [place], [place] [address] documented as of this encounter Procedures Procedure Name Priority Date/Time Associated Diagnosis Comments MM TOMOSYNTHESIS DIAGNOSTIC BI 08/31/2023 1:39 PM EDT documented in this encounter Results * MM TOMOSYNTHESIS DIAGNOSTIC BI (08/31/2023 1:39 PM EDT) Anatomical Region Laterality Modality Other 08/31/2023 1:39 PM EDT Narrative 08/31/2023 1:40 PM EDT The [address] [address] Mammography Report Signed Patient: VIJAYA TRAN MR#: [id number] : 1985 Acct:[id number] Age/Sex: 37 / F ADM Date: 08/31/23 Loc: MAMMO Attending Dr: Rubens Tim D.O. Ordering Physician: Rubens Tim D.O. Results: Date of Service: 08/31/23 Follow Up: Procedure(s): MM tomosynthesis diagnostic BI Accession Number(s): [id number] cc: Rubens Tim D.O.; Cas Galicia M.D. Patient Name: VIJAYA TRAN MR#: [id number] : 1985 Exam Date: 08/31/2023 Ordering Doctor: [...] cervical cancer at age 48. LOCATION: The [facility] BREAST COMPOSITION: There are scattered areas [...] Signed By: 08/31/23 1340 DD/ 1339 TD/TT: Foam Tank Laminator: Procedure Note Radiology, Radiologist, MD - 08/31/2023 [place] [address] Mammography Report Signed Patient: VIJAYA TRAN SMR#: [id number] : 1985Acct:[id number] Age/Sex: 37 / FADM Date: 08/31/23 Loc: MAMMO Attending Dr: Rubens Tim D.O. Ordering Physician: Rubens Tim D.O.Results: Date of Service: 08/31/23Follow Up: Procedure(s): MM tomosynthesis diagnostic BI Accession Number(s): [id number] cc: Rubens Tim D.O.; Cas Galicia M.D. Patient Name: VIJAYA TRAN MR#: [id number] : 1985 Exam Date: 08/31/2023 Ordering Doctor: [...] cervical cancer at age 48. LOCATION: The [facility] BREAST COMPOSITION: There are scattered areas [...] Dictated By: Jonas Humphrey M.D. Signed By:08/31/23 134 DD/ 2127 TD/TT: Foam Tank Laminator: us Generic External Data Provider [facility] Final Result documented in this encounter Visit Diagnoses Not on filedocumented in this encounter Care Teams Linux Network Engineer Relationship Specialty Start Date End Date Cas Galicia MD PCP - General Family Medicine 04/09/23 Cas Galicia MD [address] [place] [address] PCP - [place] [employer] 06/06/23 Cas Galicia MD [address] [place] [address] PCP - [employer] 11/06/23 documented as of this encounter
--- OUTSIDE RECORDS SUMMARY | 2024-10-08 08:51 | XMS_ITS | Encounter Summary ---
Author Organization [facility] Address [address] [place] [address] Care Team Providers Care Billing Administrator Name Role Phone Cas Galicia MD Primary Care Provider [phone] Cas Galicia MD Unavailable Cas Galicia MD [...] any clubs o r organizations such as jain groups, unions, fraternal or athletic groups, or [...] care, and heating? Somewhat hard 04/08/2023 [facility] of Occupat ional [facility] - Occupational Stress Questionnaire Answer Date [...] EDT Office Visit [facility] [address] [facility] [place] [address] Rubens Tim DO [address] [facility] [place] [address] 07/08/2025 8:20 AM EDT Office Visit [facility] [address] [place] [address] Jodi Holden, PONCE [address] [place], [place] [address] documented as of this encounter Procedures Procedure Name Priority Date/Time Associated Diagnosis Comments US THYROID 05/10/2023 12:35 PM EDT documented in this encounter Results * US thyroid (05/10/2023 12:35 PM EDT) Anatomical Region Laterality Modality Head, Neck Ultrasound 05/10/2023 12:3 5 PM EDT Narrative 05/10/2023 12:37 PM EDT The [address] [address] Ultrasound Report Signed Patient: VIJAYA TRAN MR#: [id number] : 1985 Acct:[id number] Age/Sex: 37 / F ADM Date: 05/10/23 Loc: RAD Attending Dr: Reji Best NP Ordering Physician: Reji Best NP Date of Service: 05/10/23 Procedure(s): US thyroid Accession Number(s): [id number] cc: Cas Galicia M.D.; Reji Best NP The [address] [address] Patient Name: VIJAYA TRAN MRN: [id number] date: 1985 Sex: F Assigned Patient Location: RAD Current Patient Location: RAD Accession/Order Number: [id number] Exam Date: 05/10/2023 09:04 Report Date: 05/10/2023 [...] Signed By: 05/10/23 1237 DD/ 1235 TD/TT: Cooker Helper: Procedure Note Radiology, Radiologist, MD - 05/10/2023 The [place] [id number] Ultrasound Report Signed Patient: VIJAYA TRAN SMR#: [id number] : 1985Acct:[id number] Age/Sex: 37 / FADM Date: 05/10/23 Loc: RAD Attending Dr: Reji Best NP Ordering Physician: Reji Best NP Date of Service: 05/10/23 Procedure(s): US thyroid Accession Number(s): [id number] cc: Cas Galicia M.D.; Reji Best NP The [address] [address] Patient Name: VIJAYA TRAN MRN: [id number] date: 1985 Sex: F Assigned Patient Location: RAD Current Patient Location: RAD Accession/Order Number: [id number] Exam Date: 05/10/2023 09:04 Report Date: 05/10/2023 [...] M.D. Signed By:05/10/23 1237 DD/ 1235 TD/TT: Cooker Helper: us Generic External Data Provider IMG US PROCEDURES Final Result documented in this encounter Visit Diagnoses Not on filedocumented in this encounter Care Teams Billing Administrator Relationship Specialty Start Date End Date Cas Galicia MD PCP - General Family Medicine 04/09/23 Cas Galicia MD [address] [place] [address] PCP - [place] [employer] 06/06/23 Cas Galicia MD [address] [place] [address] PCP - [place] [employer] 11/06/23 documented as of this encounter
--- OUTSIDE RECORDS SUMMARY | 2024-10-08 08:51 | XMS_ITS | Encounter Summary ---
Author Organization [facility] Address [address] [place] [address] Care Team Providers Care Multiple Slide Operator Name Role Phone Cas Galicia MD Primary Care Provider [phone] Sai Perez MD Unavailable [phone] Rubens Tim DO Unavailable [phone] Source Comments In the event this information is protected by the Federal Confidentiality of Alcohol and Drug AbusePatient Records regulations: The Federal rules restrict any use of the information to criminally investigate or prosecute any alcohol or drug abuse patient.[facility] Encounter Details Date Type Department Care Team (Late st Contact Info) Description 12/19/2021 Get Medical Advice [facility] have it! [address] [place], [place] [phone] Dayanna Sotomayor, MS [address] [place], [place] [phone] Genetic testing Social History Tobacco Use Types [...] N ot on file 08/15/2021 Data from: https://www.neighborhoodatlas.medicine.[facility]/. Last address used for calculation [...] Description 09/29/2025 9:15 AM EDT Office Visit [facility] [address] [place] [address] [place] [address] 1 year follow up 09/29/2025 9:30 AM EDT Visit (SP) Office Hematology/Oncology [address] [place] [address] Shweta [place] APRN.CUSTOMER SERVICER [address] [place] [address] 1 year follow up documented as of this encounter Visit Diagnoses Not on filedocumented in this encounter Care Teams Multiple Slide Operator Relationship Specialty Start Date End Date Cas Galicia MD PCP - General Family Medicine 02/20/14 Sai Perez MD [address] [place] [address] Primary Staff Physician Cardiology 07/21/21 Rubens Tim DO [address] [place] [address] [place] [address] Referring Map Clerk 08/05/21 documented as of this encounter
--- OUTSIDE RECORDS SUMMARY | 2024-10-08 08:51 | XMS_ITS | Encounter Summary ---
Author Organization [facility] Address [address] [place] [address] Care Team Providers Care Client Relationship Manager Name Role Phone Cas Galicia MD Primary Care Provider [phone] Cas Galicia MD Unavailable Cas Galicia MD [...] How often do you attend chur or gnosticist services? Patient declined 04/08/2023 Do you belong to any clubs o r organizations such as mu-ism groups, unions, fraternal or athletic groups, or [...] medical care, and heating? Somewhat hard 04/08/2023 [facility] of Occupat ional [facility] - Occupational Stress Questionnaire Answer [...] place to sleep or slept in a group home (including now)? Patient declined 04/08/2023 Comments [...] EDT Office Visit [facility] [address] [address] Rodolfo Tim DO [address] [facility] [place] [address] 07/08/2025 8:20 AM EDT Office Visit [facility] [address] [place] [address] Jodi Holden, PONCE [address] [place], [place] [address] documented as of this encounter Procedures Procedure Name Priority Date/Time Associated Diagnosis Comments US PELVIS W/ TRANSVAGINAL 08/30/2023 10:22 AM EDT documented in this encounter Results * US PELVIS W/ TRANSVAGINAL (08/30/2023 10:22 AM EDT) Anatomical Region Laterality Modality Other 08/30/2023 10:2 2 AM EDT Narrative 08/30/2023 10:25 AM EDT The [address] [address] Ultrasound Report Signed Patient: VIJAYA TRAN MR#: [id number] : 1985 Acct:[id number] Age/Sex: 37 / F ADM Date: 08/30/23 Loc: US Attending Dr: Rodolfo Tim D.O. Ordering Physician: Rodolfo Tim D.O. Date of Service: 08/30/23 Procedure(s): US pelvis w/ transvaginal Accession Number(s): [id number] cc: Rodolfo Tim D.O.; Cas Galicia M.D. The [address] [address] Patient Name: VIJAYA TRAN MRN: [id number] date: 1985 Sex: F Assigned Patient Location: US Current Patient Location: US Accession/Order Number: [id number] Exam Date: 08/30/2023 08:55 Report Date: 08/30/2023 [...] Signed By: 08/30/23 1025 DD/ 1022 TD/TT: Natural Sciences Manager: Procedure Note Radiology, Radiologist, MD - 08/30/2023 [place] [address] Ultrasound Report Signed Patient: VIJAYA TRAN SMR#: [id number] : 1985Acct:[id number] Age/Sex: 37 / FADM Date: 08/30/23 Loc: US Attending Dr: Rodolfo Tim D.O. Ordering Physician: Rodolfo Tim D.O. Date of Service: 08/30/23 Procedure(s): US pelvis w/ transvaginal Accession Number(s): [id number] cc: Rodolfo Tim D.O.; aCs Galicia M.D. The [address] [address] Patient Name: VIJAYA TRAN MRN: [id number] date: 1985 Sex: F Assigned Patient Location: US Current Patient Location: US Accession/Order Number: [id number] Exam Date: 08/30/2023 08:55 Report Date: 08/30/2023 [...] M.D. Signed By:08/30/23 1025 DD/ 1022 TD/TT: Natural Sciences Manager: us Generic External Data Provider [facility] Final Result documented in this encounter Visit Diagnoses Not on filedocumented in this encounter Care Teams Client Relationship Manager Relationship Specialty Start Date End Date Cas Galicia MD PCP - General Family Medicine 04/09/23 Cas Galicia MD [address] [place] [address] PCP - [place] [employer] 06/06/23 Cas Galicia MD [address] [place] [address] PCP - [place] [employer] 11/06/23 documented as of this encounter
--- OUTSIDE RECORDS SUMMARY | 2024-10-08 08:51 | XMS_ITS | Encounter Summary ---
Author Organization [facility] Address [address] [place] [address] Care Team Providers Care Fur Blowing Machine Operator Name Role Phone Cas Galicia MD Primary Care Provider Cas Galicia MD Unavailable Encounter Details Date Type Department Care Team (Late st Contact Info) Description 12/05/2023 Abstract [facility] [address] [place] [address] Rubens Tim DO [address] [place] [address] Social History Tobacco Use Types Packs/Day Years [...] often do you attend chur ch or hindu services? Patient declined 04/08/2023 Do you belong to any clubs o r organizations such as anabaptist groups, unions, fraternal or athletic groups, or [...] medical care, and heating? Somewhat hard 04/08/2023 [facility] of Occupat ional Health - Occupational Stress [...] chcf (including now)? Patient declined 04/08/2023 Comments No [...] [facility] [place] [address] Rubens Tim DO [address] [facility] [place] [address] 07/08/2025 8:20 AM EDT Office Visit [facility] [address] [place] [address] Jodi Holden, [place] [address] [place], [place] [address] documented as of this encounter Visit Diagnoses Not on filedocumented in this encounter Care Teams Fur Blowing Machine Operator Relationship Specialty Start Date End Date Cas Galicia MD PCP - General Family Medicine 04/09/23 Cas Galicia MD [address] [place] [address] PCP - [place] [employer] 11/06/23 documented as of this encounter
--- OUTSIDE RECORDS SUMMARY | 2024-10-08 08:51 | XMS_ITS | Encounter Summary ---
Author Organization [facility] Address [address] [place] [address] Care Team Providers Care Rail Signal Worker Name Role Phone Cas Galicia MD Primary Care Provider [phone] Sai Perez MD Unavailable [phone] Rubens Tim DO Unavailable [phone] Source Comments In the event this information is protected by the Federal Confidentiality of Alcohol and Drug AbusePatient Records regulations: The Federal rules restrict any use of the information to criminally investigate or prosecute any alcohol or drug abuse patient.[facility] Encounter Details Date Type Department Care Team (Late st Contact Info) Description 12/26/2021 Patient Msg Neurology [address] [place] [address] Provider, [facility] Sleep Study Confirmation [...] N ot on file 08/15/2021 Data from: https://www.neighborhoodatlas.medicine.[facility]/. Last address used for calculation [address] [...] Description 09/29/2025 9:15 AM EDT Office Visit [facility] [address] [place] [address] [place] [address] 1 year follow up 09/29/2025 9:30 AM EDT Visit (SP) Office Hematology/Oncology [address] [facility] [place] [address] Shweta [place] APRN.[address] [place] [address] 1 year follow up documented as of this encounter Visit Diagnoses Not on filedocumented in this encounter Care Teams Rail Signal Worker Relationship Specialty Start Date End Date Cas Galicia MD PCP - General Family Medicine 02/20/14 Sai Perez MD [address] [place] [address] Primary Staff Physician Cardiology 07/21/21 Rubens Tim DO [address] [place] [address] [place] [address] Referring Program Manager Slp 08/05/21 documented as of this encounter
--- OUTSIDE RECORDS SUMMARY | 2024-10-08 08:52 | XMS_ITS | Encounter Summary ---
Author Organization [facility] Sys tem Address [id number] [address] [place] [address] Care Team Providers Care Flask Carrier Name Role Phone Cas Galicia MD Primary Care Provider [phone] Encounter Details Date Type Department Care Team (Late st Contact Info) Description 12/24/2020 Orders Only [facility] [address] [place] [address] External, Scanning Provider Social History Tobacco Use [...] Description 11/24/2024 10:00 AM EDT Office Visit [facility] Adult Endocrinology, A Department of [facility] [address] [address] Akila Ballard MD [address] [address] 12/26/2024 10:30 AM EST Office Visit [facility] Neurology, A Department of [facility] [address] [address] Stella Flowers, CAR RENTAL AGENCY MANAGER-WELFARE OFFICER [address] [address] documented as of this [...] Multiple labs (11/16/2020) us Scanning Provider External NV IMAGING Final Result MANUALLY TRANSCRIBED RESULTS * Echo complete W/O contrast (11/16/2020) Anatomical Region Laterality Modality Chest N/A Ultrasound us Scanning Provider External CV ECHO ORDERABLES Fi nal Result * ECG 12 lead (11/15/2020) us Scanning Provider External ECG ORDERABLES Final Result Performing Organization Address City/[facility] Co de Phone Number MANUALLY TRANSCRIBED RESULTS * ECG 12 lead (11/01/2020) us Scanning Provider External ECG ORDERABLES Final Result Performing Organization Address [facility] Co de Phone Number MANUALLY TRANSCRIBED RESULTS documented in this encounter Visit Diagnoses Not on filedocumented in this encounter Care Teams Flask Carrier Relationship Specialty Start Date End Date Cas Galicia MD PCP - General Family Medicine 11/18/20 documented as of this encounter
--- OUTSIDE RECORDS SUMMARY | 2024-10-08 08:52 | XMS_ITS | Encounter Summary ---
Author Organization [facility] Address [address] [place] [address] Care Team Providers Care Real Property Appraiser Name Role Phone Cas Galicia MD Primary Care Provider [phone] Cas Galicia MD Unavailable Encounter Details Date Type Department Care Team (Late st Contact Info) Description 04/24/2024 Abstract [facility] [address] [facility] [place] [address] Kassie Coffman LPN Social History Tobacco Use [...] How often do you attend chur or latter-day services? Patient declined 04/08/2023 Do you belong [...] medical care, and heating? Somewhat hard 04/08/2023 [facility] of Occupat ional Health - Occupational Stress [...] to sleep or slept in a senior care (including now)? Patient declined 04/08/2023 Comments No [...] [address] [facility] [place] [address] Rubens Tim DO [address] [facility] [place] [address] 07/08/2025 8:20 AM EDT Office Visit [facility] [address] [place] [address] Jodi Holden, PA [address] [place] [address] documented as of this encounter Visit Diagnoses Not on filedocumented in this encounter Care Teams Real Property Appraiser Relationship Specialty Start Date End Date Cas Galicia MD PCP - General Family Medicine 04/09/23 Cas Galicia MD [address] [place] [address] PCP - [place] [employer] 11/06/23 documented as of this encounter
--- OUTSIDE RECORDS SUMMARY | 2024-10-08 08:52 | XMS_ITS | Encounter Summary ---
Author Organization [facility] Address [address] [place] [address] Care Team Providers Care Medicaid Collection Specialist Name Role Phone Cas Galicia MD Primary Care Provider [phone] Cas Galicia MD Unavailable Encounter Details Date [...] often do you attend healthsource [place] or christianity services? Patient declined 04/08/2023 Do you belong to any clubs o r organizations such as yarsanism groups, unions, fraternal or athletic groups, or [...] medical care, and heating? Somewhat hard 04/08/2023 [facility] of Occupat ional Health - Occupational [...] place to sleep or slept in a residential (including now)? Patient declined 04/08/2023 Comments No [...] 10:40 AM EDT Office Visit [facility] [address] [facility] [place] [address] Rubens Tim DO [address] [facility] [place] [address] 07/08/2025 8:20 AM EDT Office Visit [facility] [address] [place] [address] Jodi Holden, PA [address] [place] [address] documented as of this encounter Procedures Procedure Name Priority Date/Time Associated Diagnosis Comments CT ABDOMEN/PELVIS WO CONT 10/09/2023 3:39 PM EDT documented in this encounter Results * CT ABDOMEN/PELVIS WO CONT (10/09/2023 3:39 PM EDT) Anatomical Region Laterality Modality Radiographic Naina ging 10/09/2023 3:39 PM EDT Narrative 10/09/2023 3:42 PM EDT The [address] [address] [address] Scan Report Signed Patient: VIJAYA TRAN MR#: [id number] : 1985 Acct:[id number] Age/Sex: 37 / F ADM Date: 10/09/23 Loc: CT Attending Dr: Selma Choe TECHNOLOGY SUPPORT ANALYST Ordering Physician: Selma Choe NP Date of Service: 10/09/23 Procedure(s): CT abdomen pelvis wo con Accession Number(s): [id number] cc: Cas Galicia M.D. The [address] [address] Patient Name: VIJAYA TRAN MRN: [id number] date: 1985 Sex: F Assigned Patient Location: CT Current Patient Location: CT Accession/Order Number: [id number] Exam Date: 10/09/2023 14:16 Report Date: 10/09/2023 [...] Signed By: 10/09/23 1542 DD/ 1539 TD/TT: Bi Architect: Procedure Note Radiology, Radiologist, - 10/09/2023 [place] [address] [place] Scan Report Signed Patient: VIJAYA TRAN [facility]#: [id number] : 1985Acct:[id number] Age/Sex: 37 / FADM Date: 10/09/23 Loc: CT Attending Dr: Selma Choe NP Ordering Physician: Selma Choe NP Date of Service: 10/09/23 Procedure(s): CT abdomen pelvis wo con Accession Number(s): [id number] cc: Cas Galicia M.D. [address] [address] Patient Name: VIJAYA TRAN MRN: [id number] date: 1985 Sex: F Assigned Patient Location: CT Current Patient Location: CT Accession/Order Number: [id number] Exam Date: 10/09/2023 14:16 Report Date: 10/09/2023 [...] Dictated By: Dano Hill M.D. Signed By:10/09/23 1541 DD/ 1539 TD/TT: Bi Architect: us Generic External Data Provider IMG XR PROCEDURES Final Result documented in this encounter Visit Diagnoses Not on filedocumented in this encounter Care Teams Medicaid Collection Specialist Relationship Specialty Start Date End Date Cas Galicia MD PCP - General Family Medicine 04/09/23 Cas Galicia MD [address] [place] [address] PCP - [place] [employer] 11/06/23 documented as of this encounter
--- OUTSIDE RECORDS SUMMARY | 2024-10-08 08:52 | XMS_ITS | Encounter Summary ---
Author Organization [facility] Address [address] [place] [address] Care Team Providers Care Mangle Tender Name Role Phone Cas Galicia MD Primary Care Provider [phone] Sai Perez MD Unavailable [phone] Rubens Tim DO Unavailable [phone] Source Comments In the event this information is protected by the Federal Confidentiality of Alcohol and Drug AbusePatient Records regulations: The Federal rules restrict any use of the information to criminally investigate or prosecute any alcohol or drug abuse patient.[facility] Encounter Details Date Type Department Care Team (Latest Contact Info) Description 09/30/2024 Travel Social History Tobacco Use Types Packs/Day Years [...] is lower risk 8 10/02/2022 Data from: https://www.neighborhoodatlas.[facility]/. Last address used for calculation [...] Description 09/29/2025 9:15 AM EDT Office Visit [facility] [address] [facility] [place] [place] [address] 1 year follow up 09/29/2025 9:30 AM EDT Visit (SP) Office Hematology/Oncology [address] [facility] [address] Shweta Masters APRN.WOLF HUNTER [address] [facility] [place] [address] 1 year follow up documented as of this encounter Visit Diagnoses Not on filedocumented in this encounter Care Teams Mangle Tender Relationship Specialty Start Date End Date Cas Galicia MD PCP - General Family Medicine 02/20/14 Sai Perez MD [address] [facility] [address] Primary Staff Physician Cardiology 07/21/21 Rubens Tim DO [address] [place] [address] [place] [address] Referring Communication Equipment Repairer 08/05/21 documented as of this encounter
--- OUTSIDE RECORDS SUMMARY | 2024-10-08 08:52 | XMS_ITS | Encounter Summary ---
Author Organization [facility] Address [id number] [address] [place] [address] Care Team Providers Care Ed Special Education Teacher Name Role Phone Cas Galicia MD Primary Care Provider [phone] Reason for Visit * Reason Comments Med Change Request Encounter Details Date Type Department Care Team (Late st Contact Info) Description 08/24/2021 Refill [facility] Adult Neurology [address] [facility] [address] [place] [address] Stella Flowers, HOTEL SERVICE MANAGER-WET FINISHER WOOL [address] [facility] [address] [place] [address] Migraine without aura and without [...] 10:00 AM EDT Office Visit [facility] Adult Endocrinology, A Department of [facility] [address] [address] Akila Ballard MD [address] [address] 12/26/2024 10:30 AM EST Office Visit [facility] Neurology, A Department of [facility] [address] [facility] [address] [address] Stella Flowers, HOTEL SERVICE MANAGER-WET FINISHER WOOL [address] [address] documented as of this encounter Visit Diagnoses Diagnosis Migraine without aura and without status migrainosus, not intractable documented in this encounter Additional Health Concerns Assessment Noted Time PHQ-9 Depression Total Score: 17 04/2 022 10:30 AM EDT documented as of this encounter Care Teams Ed Special Education Teacher Relationship Specialty Start Date End Date Cas Galicia MD PCP - General Family Medicine 11/18/20 documented as of this encounter
--- OUTSIDE RECORDS SUMMARY | 2024-10-08 08:52 | XMS_ITS | Encounter Summary ---
Author Organization [facility] Address [address] [place] [address] Care Team Providers Care Cardiovascular Disease Specialist Name Role Phone Cas Galicia MD Primary Care Provider [phone] Encounter Details Date Type Department Care Team (Late st Contact Info) Description 07/10/2024 Orders Only [facility] [address] [facility] [address] Halima Morris MD [address] [place] [address] Social History Tobacco Use Types Packs/Day [...] often do you attend chur ch or mandaen services? Patient declined 04/08/2023 Do you belong to any clubs o r organizations such as druze groups, unions, fraternal or athletic groups, or [...] medical care, and heating? Somewhat hard 04/08/2023 [facility] of Occupat ional Health - Occupational [...] EDT Office Visit [facility] [address] [facility] [place] [address] Rubens Tim DO [address] [facility] [place] [address] 07/08/2025 8:20 AM EDT Office Visit [facility] [address] [place] [address] Jodi [place]en, PA [address] [place] [address] documented as of this encounter Procedures Procedure Name Priority Date/Time Associated Diagnosis Comments SCANNED LABS Routine 07/10/2024 10:35 AM EDT documented in this encounter Results * SCANNED LABS (07/10/2024 10:35 AM EDT) Halima Morris MD LAB CHG PERFORMABLES Final Res ult documented in this encounter Visit Diagnoses Not on filedocumented in this encounter Care Teams Cardiovascular Disease Specialist Relationship Specialty Start Date End Date Cas Galicia MD PCP - General Family Medicine 04/09/23 documented as of this encounter
--- OUTSIDE RECORDS SUMMARY | 2024-10-08 08:52 | XMS_ITS | Encounter Summary ---
Author Organization [facility] Address [address] [place] [address] Care Team Providers Care Tooling Engineering Tech Name Role Phone Cas Galicia MD Primary Care Provider [phone] Cas Galicia MD Unavailable Encounter Details Date Type Department Care Team (Late st Contact Info) Description 04/24/2024 Abstract [facility] [address] [facility] [address] Kassie Coffman LPN Social History Tobacco Use [...] How often do you attend chur or baptist services? Patient declined 04/08/2023 Do you belong [...] medical care, and heating? Somewhat hard 04/08/2023 [facility] of Occupat ional Health - Occupational [...] place to sleep or slept in a prison (including now)? Patient declined 04/08/2023 Comments No [...] Office Visit [facility] [address] [facility] [address] Rubens Tim DO [address] [facility] [place] [address] 07/08/2025 8:20 AM EDT Office Visit [facility] [address] [place] [address] Jodi Holden, PA [address] [place] [address] documented as of this encounter Visit Diagnoses Not on filedocumented in this encounter Care Teams Tooling Engineering Tech Relationship Specialty Start Date End Date Cas Galicia MD PCP - General Family Medicine 04/09/23 Cas Galicia MD [address] [place] [address] PCP - [place] [employer] 11/06/23 documented as of this encounter
--- OUTSIDE RECORDS SUMMARY | 2024-10-08 08:52 | XMS_ITS | Encounter Summary ---
Author Organization [facility] Address [address] [place] [address] Care Team Providers Care Lining Baster Name Role Phone Cas Galicia MD Primary Care Provider [phone] Sai Perez MD Unavailable [phone] Rubens Tim DO Unavailable [phone] Source Comments In the event this information is protected by the Federal Confidentiality of Alcohol and Drug AbusePatient Records regulations: The Federal rules restrict any use of the information to criminally investigate or prosecute any alcohol or drug abuse patient.[facility] Encounter Details Date Type Department Care Team (Late st Contact Info) Description 02/15/2022 [facility] [address] [place] [address] Provider, Ccf Referral to Wellness [...] N ot on file 02/17/2022 Data from: https://www.neighborhoodatlas.medicine.[facility]/. Last address used for calculation [...] Description 09/29/2025 9:15 AM EDT Office Visit [facility] [address] [place] [address] 1 year follow up 09/29/2025 9:30 AM EDT Visit (SP) Office Hematology/Oncology [address] [place] [address] Shweta Masters APRN.[address] [place] [address] 1 year follow up documented as of this encounter Visit Diagnoses Not on filedocumented in this encounter Care Teams Lining Baster Relationship Specialty Start Date End Date Cas Galicia MD PCP - General Family Medicine 02/20/14 Sai Perez MD [address] [facility] [place] [place] [address] Primary Staff Physician Cardiology 07/21/21 Rubens Tim DO [address] [place] [address] [place] [address] Referring Game Farm Supervisor 08/05/21 documented as of this encounter
--- OUTSIDE RECORDS SUMMARY | 2024-10-08 08:52 | XMS_ITS | Encounter Summary ---
Author Organization [facility] Address [address] [place] [address] Care Team Providers Care Crankshaft Balancer Name Role Phone Cas Galicia MD Primary Care Provider [phone] Sai Perez MD Unavailable [phone] Rubens Tim DO Unavailable Source Comments In the event this information is protected by the Federal Confidentiality of Alcohol and Drug AbusePatient Records regulations: The Federal rules restrict any use of the information to criminally investigate or prosecute any alcohol or drug abuse patient.[facility] Encounter Details Date Type Department Care Team (Late st Contact Info) Description 02/14/2022 Patient Msg Neurology [address] [place] [address] Provider, Ccf Appointment Cancellation Social [...] N ot on file 02/17/2022 Data from: https://www.neighborhoodatlas.medicine.[facility]/. Last address used for calculation [address] [...] 09/29/2025 9:15 AM EDT Office Visit [facility] [address] [place] [address] [place] [address] 1 year follow up 09/29/2025 9:30 AM EDT Visit (SP) Office Hematology/Oncology [address] [facility] [place] [address] Shweta Masters APRN.[address] [place] [address] 1 year follow up documented as of this encounter Visit Diagnoses Not on filedocumented in this encounter Care Teams Crankshaft Balancer Relationship Specialty Start Date End Date Cas Galicia MD PCP - General Family Medicine 02/20/14 Sai Perez MD [address] [place] [address] Primary Staff Physician Cardiology 07/21/21 Rubens Tim DO [address] [place] [address] [place] [address] Referring Ice Cream Man 08/05/21 documented as of this encounter
--- OUTSIDE RECORDS SUMMARY | 2024-10-08 08:52 | XMS_ITS | Encounter Summary ---
Author Organization [facility] Sys tem Address [id number] [address] [place] [address] Care Team Providers Care Glue Mounter Operator Name Role Phone Cas Galicia MD Primary Care Provider Encounter Details Date Type Department Care Team (Late st Contact Info) Description 08/30/2021 Orders Only [facility] Neurology [address] [facility] [address] [place] [address] Sierra Hutchinson CMA Social History Tobacco Use [...] Visit [facility], A Department of [facility] [address] [address] Akila Ballard MD [address] [address] 12/26/2024 10:30 AM EST Office Visit [facility], A Department of [facility] [address] [address] Stella Flowers [facility] [address] [facility] [email or web address] [address] [address] documented as of this encounter Visit Diagnoses Not on filedocumented in this encounter Additional Health Concerns Assessment Noted Time PHQ-9 Depression Total Score: 17 022 10:30 AM EDT documented as of this encounter Care Teams Glue Mounter Operator Relationship Specialty Start Date End Date Cas Galicia MD PCP - General Family Medicine 11/18/20 documented as of this encounter
--- OUTSIDE RECORDS SUMMARY | 2024-10-08 08:52 | XMS_ITS | Encounter Summary ---
Author Organization [facility] Sys tem Address [id number] [address] [place] [address] Care Team Providers Care Billing Specialist Name Role Phone Cas Galicia MD Primary Care Provider [phone] Encounter Details Date Type Department Care Team (Late st Contact Info) Description 03/16/2022 Orders Only [facility] Adult Endocr[facility]ology [address] [place] [address] Cas Galicia MD [address] [place] [address] Social History Tobacco Use Types Packs/Day Years [...] Description 11/24/2024 10:00 AM EDT Office Visit [facility] Adult Endocrinology, A Department of [facility] [address] [address] Akila Ballard MD [address] [address] 12/26/2024 10:30 AM EST Office Visit [facility] Neurology, A Department of [facility] [address] [address] Stella Flowers, CURTAINS AND DRAPERIES SALESPERSON-MOTORCYCLE ENGINE ASSEMBLER [address] [address] documented as of this encounter [...] documented as of this encounter Care Teams Billing Specialist Relationship Specialty Start Date End Date Cas Galicia MD PCP - General Family Medicine 11/18/20 documented as of this encounter
--- OUTSIDE RECORDS SUMMARY | 2024-10-08 08:52 | XMS_ITS | Encounter Summary ---
Author Organization [facility] Address [id number] [address] [place] [address] Care Team Providers Care Professor Of Counseling Name Role Phone Cas Galicia MD Primary Care Provider [phone] Encounter Details Date Type Department Care Team (Late Contact Info) Description 02/20/2022 Telephone [facility] [address] [phone] Akila Ballard MD [address] [facility] [address] [place] [address] Social History Tobacco Use Types Packs/Day Years [...] Description 11/24/2024 10:00 AM EDT Office Visit [facility] Adult Endocrinology, A Department of [facility] [address] [address] Akila Ballard MD [address] [address] 12/26/2024 10:30 AM EST Office Visit [facility] Neurology, A Department of [facility] [address] [address] Stella Flowers APRN-SEO STRATEGIST [address] [address] documented as of this encounter Visit Diagnoses Not on filedocumented in this encounter Additional Health Concerns Assessment Noted Time PHQ-9 Depression Total Score: 0 10/06/19 22 10:43 AM EDT documented as of this encounter Care Teams Professor Of Counseling Relationship Specialty Start Date End Date Cas Galicia MD PCP - General Family Medicine 11/18/20 documented as of this encounter
--- OUTSIDE RECORDS SUMMARY | 2024-10-08 08:52 | XMS_ITS | Encounter Summary ---
Author Organization [facility] Address [address] [place] [address] Care Team Providers Care Talent Development Consultant Name Role Phone Cas Galicia MD Primary Care Provider [phone] Encounter Details Date Type Department Care Team (Late st Contact Info) Description 09/25/2024 Bamboo flowsheet [facility] [address] [place] [address] Cas Galicia MD [address] [place] [address] Social History Tobacco Use Types Packs/Day Years [...] How often do you attend chur or presybeterian services? Patient declined 08/08/2024 Do [...] medical care, and heating? Somewhat hard 08/08/2024 [facility] of Occupat ional Health - [...] a fci (including now)? Patient declined 04/08/2023 Housing Stability [...] any time in the past 12 m [facility], were you homeless or living in a fci (including now)? No 08/08/2024 Comments No Sex [...] [address] [facility] [place] [address] Rubens Tim DO [address] [facility] [place] [address] 07/08/2025 8:20 AM EDT Office Visit [facility] [address] [facility] [place] [address] Jodi Holden, PA [address] [place] [address] documented as of this encounter Visit Diagnoses Not on filedocumented in this encounter Care Teams Talent Development Consultant Relationship Specialty Start Date End Date Cas Galicia MD PCP - General Family Medicine 04/09/23 documented as of this encounter
--- OUTSIDE RECORDS SUMMARY | 2024-10-08 08:52 | XMS_ITS | Encounter Summary ---
Author Organization [facility] Address [address] [place] [address] Care Team Providers Care Marquetry Worker Name Role Phone Cas Galicia MD Primary Care Provider [phone] Encounter Details Date Type Department Care Team (Late st Contact Info) Description 09/25/2024 Abstract [facility] [address] [place] [address] Cas Galicia MD [address] [place] [address] Social History Tobacco Use Types Packs/Day Years [...] How often do you attend chur or tenriism services? Patient declined 08/08/2024 Do you belong to any clubs o r organizations such as muslim groups, unions, fraEvoleen or athletic groups, or school groups? No [...] medical care, and heating? Somewhat hard 08/08/2024 [facility] of Occupat ional Health - Occupational Stress [...] place to sleep or slept in a mcc (including now)? Patient declined 04/08/2023 Housing Stability [...] time in the past 12 m [facility], were you homeless or living in a mcc (including now)? No 08/08/2024 Comments No Sex [...] EDT Office Visit [facility] [address] [place] [address] Rubens Tim DO [address] [place] [address] 07/08/2025 8:20 AM EDT Office Visit [facility] [address] [place] [address] Jodi Holden, PA [address] [place] [address] documented as of this encounter Visit Diagnoses Not on filedocumented in this encounter Care Teams Marquetry Worker Relationship Specialty Start Date End Date Cas Galicia MD PCP - General Family Medicine 04/09/23 documented as of this encounter
--- OUTSIDE RECORDS SUMMARY | 2024-10-08 08:52 | XMS_ITS | Encounter Summary ---
Author Organization [facility] Address [address] [place] [address] Care Team Providers Care Hatchery Manager Name Role Phone Cas Galicia MD Primary Care Provider [phone] Reason for Visit * Reason Onset Date Comments Med Refill 05/18/2024 Encounter Details Date Type Department Care Team (Late st Contact Info) Description 05/18/2024 Telephone [facility] [address] [place] [address] Cas Galicia MD [address] [place] [address] Med Refill Social History Tobacco Use Types [...] How often do you attend chur or pentecostalism services? Patient declined 08/08/2024 Do you belong to any clubs o r organizations such as confucianism groups, unions, fraternal or athletic groups, or [...] medical care, and heating? Somewhat hard 08/08/2024 [facility] Occupat ional Health - Occupational [...] place to sleep or slept in a correction (including now)? Patient declined 04/08/2023 Housing Stability [...] any time in the past 12 m [facility], were you homeless or living in a correction (including now)? No 08/08/2024 Comments No Sex and Gender Information Value Date Recorded Sex Assigned at Not on file Legal Sex Female 6:40 PM EDT Gender Identity Not on file Sexual Orientation Not on file documented as of this encounter Functional Status * Audit-C Score Answer Date of Assessment Author 0 08/08/2024 11:04 AM EDT Bibianat, Generic * Q1: How often do you have a drink containing alcohol? Answer Date of Assessment Author Never 08/08/2024 11:04 AM EDT Florentin, Generic * Q2: How many drinks containing alcohol do you have on a typical day when you are drinking? Answer Date of Assessment Author Patient does not drink 08/08/2024 11:04 AM EDT Ian stack Generic * Q3: How often do you have six or more drinks on one occasion? Answer Date of Assessment Author Never 08/08/2024 11:04 AM EDT Mychart, Generic documented as of this encounter Miscellaneous Notes * Telephone Encounter - Cas Galicia MD - 05/19/2024 11:49 AM EDT New script sent. * Telephone Encounter - Lorene Perdomo MA - 05/19/2024 9:17 AM EDT Patient sent message, states insurance is no longer covering onglyza, needs new script for [email or web address] documented in this encounter Plan of Treatment Upcoming Encounters Date Type Department Care Team (Late st Contact Info) Description 12/01/2024 10:40 AM EDT Office Visit [facility] [address] [facility] [place] [address] Rubens Tim DO [address] [place] [address] 07/08/2025 8:20 AM EDT Office Visit [facility] [address] [place] [address] Jodi Holden, PA [address] [place] [address] documented as of this encounter Visit Diagnoses Diagnosis Type 2 diabetes mellitus with hyperglycemia, without long-term current use of insulin (HCC) documented in this encounter Care Teams Hatchery Manager Relationship Specialty Start Date End Date Cas Galicia MD PCP - General Family Medicine 04/09/23 documented as of this encounter
--- OUTSIDE RECORDS SUMMARY | 2024-10-08 08:52 | XMS_ITS | Encounter Summary ---
Author Organization [facility] Address [address] [place] [address] Care Team Providers Care Trolley Operator Name Role Phone Cas Galicia MD Primary Care Provider [phone] Cas Galicia MD Unavailable Encounter Details Date Type Department Care Team (Late st Contact Info) Description 05/15/2024 Abstract [facility] [address] [place] [phone] Kassie Coffman LPN Social History Tobacco Use [...] any clubs o r organizations such as uatsdin groups, unions, fraternal or athletic groups, or [...] medical care, and heating? Somewhat hard 04/08/2023 [facility] of Occupat ional Health - Occupational Stress [...] usp (including now)? Patient declined 04/08/2023 Comments No [...] [facility] [address] [place] [address] Rubens Tim DO [address] [facility] [place] [address] 07/08/2025 8:20 AM EDT Office Visit [facility] [address] [place] [address] Jodi Holden, PA [address] [place] [address] documented as of this encounter Visit Diagnoses Not on filedocumented in this encounter Care Teams Trolley Operator Relationship Specialty Start Date End Date Cas Galicia MD PCP - General Family Medicine 04/09/23 Cas Galicia MD [address] [place] [address] PCP - [employer] 11/06/23 documented as of this encounter
--- OUTSIDE RECORDS SUMMARY | 2024-10-08 08:52 | XMS_ITS | Encounter Summary ---
Author Organization [facility] Address [address] [place] [address] Care Team Providers Care Fiberglass Luggage Molder Name Role Phone Cas Galicia MD Primary Care Provider [phone] Cas Galicia MD Unavailable Encounter Details Date Type Department Care Team (Late st Contact Info) Description 02/21/2024 Orders Only [facility] [address] [place] [address] Cas Galicia MD [address] [place] [address] Social History Tobacco Use Types [...] often do you attend chur ch or alevism services? Patient declined 04/08/2023 Do you belong to any clubs o r organizations such as methodist groups, unions, fraternal or athletic groups, or [...] medical care, and heating? Somewhat hard 04/08/2023 [facility] of Occupat ional Health - Occupational Stress [...] EDT Office Visit [facility] [address] [place] [phone] Rubens Tim DO [address] [facility] [place] [address] 07/08/2025 8:20 AM EDT Office Visit [facility] [address] [place] [address] Jodi Holden, PA [address] [place] [address] documented as of this encounter [...] on filedocumented in this encounter Care Teams Fiberglass Luggage Molder Relationship Specialty Start Date End Date Cas Galicia MD PCP - General Family Medicine 04/09/23 Cas Galicia MD [address] [place] [address] PCP - [place] [employer] 11/06/23 documented as of this encounter
--- OUTSIDE RECORDS SUMMARY | 2024-10-08 08:52 | XMS_ITS | Clinical Summary ---
Author Organization [facility] Address [address] [place] [address] Care Team Providers Care Ranch Manager Name Role Phone Cas Dowell MD Primary Care Provider [phone] Allergies Active Allergy Reactions Criticality Noted Date [...] MOUTH DAILY 30 capsule 3 025 Active cholecalciferol (Vitamin D-3) 125 MCG (5000 UT) capsuleIndication s:Vitamin D deficiency Take 1 capsule (125 mcg) by mouth Daily 30 capsule 3 025 2024 Discontinued levoFLOXacin (Levaquin) 750 MG tabletIndications :Chronic rhinosinusitis Take 1 tablet (750 mg) by mouth Daily for 7 days 7 tablet 025 2024 Discontinued predniSONE (Deltasone) 50 MG tabletIndications :Chronic rhinosinusitis Take 1 tablet (50 mg) by mouth Daily for 6 days 6 tablet 025 2024 doxycycline (Vibra-Tabs) 100 MG tabletIndications :Chronic rhinosinusitis Take 1 tablet (100 mg) by mouth in the morning and 1 tablet (100 mg) before bedtime. Do all this for 10 days. Take with a full glass of water and do not lie down for at least 30 minutes after. 20 tablet 025 2024 Active Problems Problem Noted Date Diagnosed Date [...] treatment. Reactions getting worse and refer to slag dumper. 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 03/02/2021 Assessment & Plan (02/11/2024 10:35 [...] (01/12/2023): Added automatically from request for surgery [id number] Adenovirus infection 01/10/2022 023 RSV (respiratory syncytial [...] Encounters Date Type Department Care Team Description 09/30/2024 Clinisync Result Encounter [facility] External Department Unsolicited Provider, Generic External Data 09/29/2024 Results Follow-Up [facility] [address] [place] [phone] Cas Dowell MD XR elbow 1 or 2 views right 09/29/2024 Clinisync Result Encounter [facility]OMS External Department Unsolicited Cas Dowell MD 09/29/2024 Clinisync Result Encounter [facility] External Department Unsolicited Cas Dowell MD 09/29/2024 Clinisync Result Encounter [facility] External Department Unsolicited Cas Dowell MD 09/29/2024 Orders Only [facility] [address] [place] [phone] Cas Dowell MD 09/25/2024 3:45 PM EDT Office Visit [facility] [address] [place] [address] Cas Dowell MD Chronic rhinosinusitis (Primary Dx); Right wrist pain; Right forearm pain 09/25/2024 Abstract [facility] [address] [place] [address] Cas Dowell MD 09/25/2024 Bamboo flowsheet [facility] [address] [place] [address] Cas Dowell MD 09/16/2024 Refill [facility] [address] [place] [address] Cas Dowell MD Vitamin D deficiency 08/11/2024 9:00 AM EDT Office Visit [facility] [address] [place] [address] Cas Dowell MD Annual physical exam (Primary Dx); Type 2 diabetes mellitus with hyperglycemia, without long-term current use of insulin (HCC); Primary hypothyroidism ; Edema of both legs 08/11/2024 Results Follow-Up [facility] [address] [place] [address] Cas Dowell MD ALL CBC WITH AUTO DIFF, MLR HEMOGLOBIN A1C, TBH MICROALB CREAT RATIO RANDOM, Additional followed-up results: 4 08/11/2024 Clinisync Result Encounter [facility] External Department Unsolicited Cas Dowell MD 08/11/2024 Bamboo flowsheet [facility] [address] [place] [address] Cas Dowell MD 08/08/2024 Travel 07/10/2024 Orders Only [facility] [address] [place] [address] Halima Morris MD 07/08/2024 8:30 AM EDT Office Visit [facility] [address] [place] [address] Jodi Holden PA Melanocytic nevus of trunk (Primary Dx); Other specified dermatitis; Dermatofibroma of right upper extremity 07/08/2024 Bamboo flowsheet [facility] [address] [place] [address] Jodi Holden PA 07/08/2024 Travel from Last 3 Months Immunizations Immunization Administration Dates Next Due Influenza, [id number] 11/20/2019 Influenza, Unspecified 11/20/2019,11/06/2019 Influenza, injectable, quadrivalent, [...] How often do you attend chur or rastafari services? Patient declined 08/08/2024 Do you belong to any clubs o r organizations such as hindu groups, unions, fraternal or athletic groups, or [...] medical care, and heating? Somewhat hard 08/08/2024 [facility] - Occupational Stress [...] a residential (including now)? Patient declined 04/08/2023 Housing Stability [...] any time in the past 12 m [facility], were you homeless or living in a residential (including now)? No 08/08/2024 Comments No Sex [...] [facility] [address] Rubens Tim DO [address] [place] [address] 07/08/2025 8:20 AM EDT Office Visit [facility] [address] [facility] [place] [address] Jodi Holden, [place] [address] [place] [address] Health Maintenance Due Date Last Done Comments Diabetes: Hemoglobin A1C 02/22/2024 024, 01/01/2023, 01/01/2023, Additional history exists Diabetes: Urine Protein Screening 04/12/2024 04/13/2023 Mammogram 08/30/2024 08/31/2023 Influenza Vaccine (#1) 2024 0, 11/06/2019, 10/27/2019 Diabetes: Retinopathy Screening 12/17/2025 Cervical Cancer Screening Discontinued Pap Smear Discontinued 03/17/2013 HPV/Cotest Discontinued Procedures Procedure Name Priority Date/Time Associated Diagnosis Comments [facility] COMP METAB 2000 PNL SERPL Routine 09/30/2024 8:42 AM EDT [facility] CBC W AUTO DIFF BLD Routine 09/30/2024 8:42 AM EDT XR FOREARM 2 VIEWS RIGHT Routine 09/29/2024 2:01 PM EDT XR WRIST 2 VIEWS RIGHT Routine 2:00 PM EDT XR ELBOW 3+ VIEWS RIGHT Routine 09/29/2024 1:59 PM EDT XR ELBOW 1-2 VIEWS RIGHT 09/29/2024 1:44 PM EDT XR FOREARM 2 VIEWS RIGHT 09/29/2024 1:43 PM EDT XR WRIST 1-2 VIEWS RIGHT 09/29/2024 1:43 PM EDT ALL THYROXINE (T4) FREE Routine 08/11/2024 10:46 AM EDT ALL THYROID STIM HORMONE Routine 08/11/2024 10:46 AM EDT ALL LIPID PROFILE (FASTING) Routine 08/11/2024 10:46 AM EDT [facility] CMP (CMP) (FOR REMOTE [facility] USE) Routine 08/11/2024 10:46 AM EDT MLR [...] Recently Relevant to Health Maintenance Results * (ABNORMAL) [facility]CF CBC W AUTO DIFF BLD (09/30/2024 8:42 AM EDT) [facility]CF WBC # BLD AUTO 9.84 3.70 - 11.00 k/uL CCF CCF RBC # BLD AUTO 4.75 3.90 - 5.20 m/uL CCF CCF HGB BLD-MCNC 14.1 11.5 - 15.5 g/dL CCF CCF HCT VFR BLD AUTO 41.8 36.0 - 46.0 % CCF CCF MCV RBC AUTO 88.0 80.0 - 100.0 fL CCF CCF MCH RBC QN AUTO 29.7 26.0 - 34.0 pg CCF CCF MCHC RBC AUTO-MCNC 33.7 30.5 - 36.0 g/dL CCF CCF RDW RBC-RTO 11.9 11.5 - 15.0 % CCF CCF PLATELET # BLD AUTO 254 150 - 400 k/uL CCF CCF PMV BLD AUTO 9.8 9.0 - 12.7 fL CCF CCF NEUTROPHILS/LEUK NFR BLD AUTO 71.7 % CCF CCF NEUTROPHILS # BLD AUTO 7.06 1.45 - 7.50 k/uL CCF CCF LYMPHOCYTES/LEUK NFR BLD AUTO 22.2 % CCF CCF LYMPHOCYTES # BLD AUTO 2.18 1.00 - 4.00 k/uL CCF CCF MONOCYTES/LEUK NFR BLD AUTO 3.5 % CCF CCF MONOCYTES # BLD AUTO 0.34 <0.87 k/uL CCF CCF EOSINOPHIL/LEUK NFR BLD AUTO 0.9 % CCF CCF EOSINOPHIL # BLD AUTO 0.09 <0.46 k/uL CCF CCF BASOPHILS/LEUK NFR BLD AUTO 0.6 % CCF CCF BASOPHILS # BLD AUTO 0.06 <0.11 k/uL CCF IMM GRANULOCYTES/LEUK NFR BLD AUTO 1.1 % CCF IMM GRANULOCYTES # BLD AUTO 0.11(H) <0.10 k/uL CCF CCF NRBC/100 WBC BLD-RTO 0.0 /100 WBC CCF CCF NRBC # BLD AUTO <0.01 <0.01 k/uL CCF CCF DIFFERENTIAL METHOD BLD Auto CCF 09/30/2024 8:42 AM EDT 09/30/2024 8:42 AM EDT Narrative CLINISYNC - 09/30/2024 8:47 AM EDT Specimen Type: BLOOD SPECIMEN [facility] Address: [address] [place], [place] [id number] Original Ordering Provider: FUENTES AMARAL us Generic External Data Provider CLINISYNC F inal Result CLINISYNC [facility] [address] [place] [address] * (ABNORMAL) CCF COMP METAB 2000 PNL SERPL (09/30/2024 8:42 AM EDT) CCF PROT SERPL-MCNC 6.7 6.3 - 8.0 g/dL CCF CCF ALBUMIN SERPL-MCNC 4.5 3.9 - 4.9 g/dL CCF CCF CALCIUM SERPL-MCNC 9.7 8.5 - 10.2 mg/dL CCF CCF BILIRUB SERPL-MCNC 0.3 0.2 - 1.3 mg/dL CCF CCF ALP SERPL-CCNC 74 34 - 123 U/L CCF CCF AST SERPL-CCNC 10(L) 13 - 35 U/L CCF CCF ALT SERPL-CCNC 15 7 - 38 U/L CCF CCF GLUCOSE SERPL-MCNC 145(H) 74 - 99 mg/dL CCF Comment: The [place] [employer] (ADA) provides [...] [place] [employer]. Diabetes Care. 2016.39(Suppl 1). CCF BUN SERPL-MCNC 19 7 - 21 mg/dL CCF CCF CREAT SERPL-MCNC 0.97(H) 0.58 - 0.96 mg/dL CCF CCF SODIUM SERPL-SCNC 139 136 - 144 mmol/L CCF CCF POTASSIUM SERPL-SCNC 3.6(L) 3.7 - 5.1 mmol/L CCF CCF CHLORIDE SERPL-SCNC 104 98 - 107 mmol/L CCF CCF CO2 SERPL-SCNC 25 22 - 30 mmol/L CCF CCF ANION GAP SERPL-SCNC 10 8 - 15 mmol/L CCF EGFRCR SERPLBLD CKD-EPI 2020 76 >=60 mL/min/1. 73m??? CCF Comment:Estimated Glomerular Filtration Rate (eGFR) is calculated using the 2020 CKD-EPI creatinine equation. This equation utilizes serum creatinine, sex, and age as parameters. The creatinine assay has traceable calibration to isotope dilution- mass spectrometry. Refer to KDIGO guidelines for clinical interpretation. In patients with unstable renal function, e.g. those with acute kidney injury, the eGFR may not accurately reflect actual GFR. 09/30/2024 8:42 AM EDT 09/30/2024 8:42 AM EDT [facility] CLINISYNC - 09/30/2024 9:10 AM EDT Specimen Type: BLOOD SPECIMEN [facility] Address: [address] [place], [place] [id number] Original Ordering Provider: FUENTES AMARAL us Generic External Data Provider JAYA Carson angelina Result JAYA [facility] [address] [place] [address] * XR forearm 2 views right (09/29/2024 2:01 PM EDT) Only the most recent of2 resultswithin the time period is included. Anatomical Region Laterality Modality Upper Extremities, Forearm Right Radio graphic Imaging us Cas Dowell MD IMG XR PROCEDURES Final Result * XR WRIST 2 VIEWS RIGHT (09/29/2024 2:00 PM EDT) Anatomical Region Laterality Modality Radiographic Naina ging us Cas Dowell MD IMG XR PROCEDURES Final Result * XR elbow 3+ views right (09/29/2024 1:59 PM EDT) Anatomical Region Laterality Modality Upper Extremities, Elbow Right Radiogr aphic Imaging us Cas Dowell MD IMG XR PROCEDURES Final Result * XR elbow 1 or 2 views right (09/29/2024 1:44 PM EDT) Anatomical Region Laterality Modality Upper Extremities, Elbow Right Radiogr aphic Imaging 09/29/2024 1:44 PM EDT Narrative 09/29/2024 1:46 PM EDT The [address] [address] XRay Report Signed Patient: VIJAYA TRAN MR#: [id number] : 1985 Acct:[id number] Age/Sex: 38 / F ADM Date: 09/29/24 Loc: LAB Attending Dr: Cas Dowell M.D. Ordering Physician: Cas Dowell M.D. Date of Service: 09/29/24 Procedure(s): XR elbow RT 2V Accession Number(s): [id number] cc: Cas Dowell M.D. [address] [id number] Patient Name: VIJAYA TRAN MRN: [id number] date: 1985 Sex: F Assigned Patient Location: LAB Current Patient Location: LAB Accession/Order Number: [id number] Exam Date: 09/29/2024 13:00 Report Date: 09/29/2024 13:44 At the request of: CAS DOWELL MD Procedure: XR elbow RT 2V RIGHT ELBOW - 2 views CLINICAL HISTORY: Right Forearm Pain COMPARISON: None FINDINGS: No elbow joint effusion or acute bony process. Joint spaces appear maintained. XR/XR elbow RT 2V IMPRESSION: NO ACUTE BONY PROCESS. Impression dictated by: Michael Price Jr., Siri.OKerri 09/29/2024 1:44 PM Dictation Location: [place] [address] Electronically authenticated by: [id number] Y Date: 09/29/2024 13:44 Dictated By: Michael Price M.D. Signed By: 09/29/24 1346 DD/ 1344 TD/TT: Housekeeper Child Care: Procedure Note Radiology, Radiologist, MD - 09/29/2024 [place] [address] XRay Report Signed Patient: VIJAYA TRAN SMR#: [id number] : 1985Acct:[id number] Age/Sex: 38 / FADM Date: 09/29/24 Loc: LAB Attending Dr: Cas Dowell M.D. Ordering Physician: Cas Dowell M.D. Date of Service: 09/29/24 Procedure(s): XR elbow RT 2V Accession Number(s): [id number] cc: Cas Dowell M.D. [address] [address] Patient Name: VIJAYA TRAN MRN: [id number] date: 1985 Sex: F Assigned Patient Location: LAB Current Patient Location: LAB Accession/Order Number: [id number] Exam Date: 09/29/2024 13:00 Report Date: 09/29/2024 13:44 At the request of: CAS DOWELL MD Procedure: XR elbow RT 2V RIGHT ELBOW - 2 views CLINICAL HISTORY: Right Forearm Pain COMPARISON: None FINDINGS: No elbow joint effusion or acute bony process. Joint spaces appear maintained. XR/XR elbow RT 2V IMPRESSION: NO ACUTE BONY PROCESS. Impression dictated by: Michael Price Jr., D.O. 09/29/2024 1:44 PM Dictation Location: [place] [address] Electronically authenticated by: [id number] Y Date: 3:44 Dictated By: Michael Price M.D. Signed By:09/29/24 1346 DD/ 1344 TD/TT: Housekeeper Child Care: us Cas Dowell MD IMG XR PROCEDURES Final Result * XR wrist 1 or 2 views right (09/29/2024 1:43 PM EDT) Anatomical Region Laterality Modality Upper Extremities, Wrist Right Radiogr aphic Imaging 09/29/2024 1:43 PM EDT Narrative 09/29/2024 1:45 PM EDT [place] [id number] XRay Report Signed Patient: VIJAYA TRAN MR#: [id number] : 1985 Acct:[id number] Age/Sex: 38 / F ADM Date: 09/29/24 Loc: LAB Attending Dr: Cas Dowell M.D. Ordering Physician: Cas Dowell M.D. Date of Service: 09/29/24 Procedure(s): XR wrist RT 2V Accession Number(s): [id number] cc: Cas Dowell M.D. [address] [address] Patient Name: VIJAYA TRAN MRN: [id number] date: 1985 Sex: F Assigned Patient Location: LAB Current Patient Location: LAB Accession/Order Number: [id number] Exam Date: 09/29/2024 13:00 Report Date: 09/29/2024 13:43 At the request of: CAS DOWELL MD Procedure: XR wrist RT 2V RIGHT WRIST - 2 views CLINICAL HISTORY: Fall. Right wrist pain COMPARISON: None FINDINGS: No focal soft tissue abnormality. No acute bony process. Joint spaces appear maintained. No bony erosions. XR/XR wrist RT 2V IMPRESSION: NO ACUTE BONY PROCESS. Impression dictated by: Michael Price Jr., D.O. 09/29/2024 1:43 PM Dictation Location: [place] [address] Electronically authenticated by: [id number] Y Date: 09/29/2024 13:43 Dictated By: Michael Price M.D. Signed By: 09/29/241344 DD/ 42 TD/TT: Housekeeper Child Care: Procedure Note Radiology, Radiologist, - 09/29/2024 [place] [address] XRay Report Signed Patient: VIJAYA TRAN SMR#: [id number] : 1985Acct:[id number] Age/Sex: 38 / FADM Date: 09/29/24 Loc: LAB Attending Dr: Cas Dowell M.D. Ordering Physician: Cas Dowell M.D. Date of Service: 09/29/24 Procedure(s): XR wrist RT 2V Accession Number(s): [id number] cc: Cas Dowell M.D. The [place] [address] Patient Name: VIJAYA TRAN MRN: [id number] date: 1985 Sex: F Assigned Patient Location: LAB Current Patient Location: LAB Accession/Order Number: [id number] Exam Date: 09/29/2024 13:00 Report Date: 09/29/2024 13:43 At the request of: CAS DOWELL MD Procedure: XR wrist RT 2V RIGHT WRIST - 2 views CLINICAL HISTORY: Fall. Right wrist pain COMPARISON: None FINDINGS: No focal soft tissue abnormality. No acute bony process. Joint spacesappear maintained. No bony erosions. XR/XR wrist RT 2V IMPRESSION: NO ACUTE BONY PROCESS. Impression dictated by: Michael Price Jr., D.O. 09/29/2024 1:43 PM Dictation Location: [place] [address] Electronically authenticated by: [id number] Y Date: 3:43 Dictated By: Michael Price M.D. Signed By:09/29/24 1345 DD/ 42 TD/TT: Housekeeper Child Care: Cas Dowell MD IMG XR PROCEDURES Final Result * MLR HEMOGLOBIN A1C (08/11/2024 10:46 AM EDT) GLYCOHEMOGLOBIN A1C 5.9 4.5 - 6.2 % TB Comment: ADA RECOMMENDED LIMIT 4.0 - 6.0 ADA THERAPEUTIC TARGET < 7.0 ACTION SUGGESTED > 7.0 ESTIMATED AVERAGE GLUCOSE 123 mg/dL TBH 08/11/2024 10:4 6 AM EDT 08/11/2024 10:55 AM EDT Narrative CLINISYNC - 08/11/2024 11:24 AM EDT Cas Dowell MD CLINISYNC Final Result CLINISYNC [facility] * (ABNORMAL) CCF CMP (CMP) (FOR REMOTE [facility] USE) (08/11/2024 10:46 AM EDT) SODIUM 144 136 - 145 mmol/L TBH POTASSIUM 4.2 3.5 - 5.1 mmol/L TBH CHLORIDE 107 98 - 107 mmol/L TBH CARBON DIOXIDE 27.7 21.0 - 32.0 mmol/L TBH ANION GAP 13.5 TBH GLUCOSE 91 74 - 106 mg/dL TBH BLOOD UREA NITROGEN 13.0 7.0 - 18.0 mg/dL TBH CREATININE 0.77 0.55 - 1.02 mg/dL TBH TBH EGFR-AF DOMINICAN >60 >=60 mL/min/1. 73m 2 TBH TBH EGFR-NON AF DOMINICAN >60 >=60 mL/min/1. 73m 2 TBH BUN [...] Narrative CLINISYNC - 08/11/2024 11:37 AM EDT us Cas [place] Final Result Performing Organization Address [facility] de Phone Number [facility] * ALL THYROXINE (T4) FREE (08/11/2024 10:46 AM EDT) FREE T4 0.82 0.76 - 1.46 ng/dL TBH 08/11/2024 10:4 6 AM EDT 08/11/2024 10:55 AM EDT Narrative CLINISYNC - 08/11/2024 11:50 AM EDT Cas [place] Final Result Performing Organization Address [facility] de Phone Number CLINISYNC [facility] * ALL THYROID STIM HORMONE (08/11/2024 10:46 AM EDT) THYROID STIMULATING HORMONE 0.432 0.358 - 3.740 uIU/mL TBH 08/11/2024 10:4 6 AM EDT 08/11/2024 10:55 AM EDT Narrative CLINISYNC - 08/11/2024 11:37 AM EDT Cas [place] Final Result Performing Organization Address [facility]/State/ZIP Co de Phone Number NICOLECOLIN TB * (ABNORMAL) ALL LIPID PROFILE (FASTING) (08/11/2024 [...] 52.2 mg/dL TB CHOL HDL RATIO 4.7 [facility] Comment: 3.3 - 4.4 LOW RISK 4.4 - 7.1 AVERAGE RISK 7.1 - 11.0 MODERATE RISK >11.0 HIGH RISK 08/11/2024 10:4 6 AM EDT 08/11/2024 10:55 AM EDT Narrative CLINISYNC - 08/11/2024 11:37 AM EDT Cas Dowell MD CLINDARCIE Final Result JAYA [facility] * ALL CBC WITH AUTO DIFF (08/11/2024 10:46 AM EDT) TBH WBC 6.8 4.0 - 11.0 10 3/uL TBH TB RBC 4.97 4.20 - 5.40 10 6/uL [...] Narrative CLINISYNC - 08/11/2024 11:11 AM EDT Cas Dowell MD CLINISYCOLIN Final Result Performing Organization Address City/[facility] Co de Phone Number CLINISYNC TB * TBH MICROALB CREAT RATIO RANDOM (08/11/2024 10:32 AM EDT) MICROALBUMIN URINE RANDOM <1.3 <=30.0 mg/dL TBH CREATININE URINE RANDOM 131.02 20.00 - 300.00 mg/dL TBH 08/11/2024 10:3 2 AM EDT 08/11/2024 10:54 AM EDT Narrative CLINISYNC - 08/11/2024 11:29 AM EDT Cas Dowell MD CLINISYCOLIN Final Result CLINISYNJ TB * SCANNED LABS (07/10/2024 10:35 AM EDT) us Halima Morris MD LAB CHG PERFORMABLES Final Res ult * MM TOMOSYNTHESIS DIAGNOSTIC BI (08/31/2023 1:39 PM EDT) Anatomical Region Laterality Modality Other 08/31/2023 1:3 9 PM EDT Narrative 08/31/2023 1:40 [place] [address] Mammography Report Signed Patient: VIJAYA TRAN MR#: [id number] : 1985 Acct:[id number] Age/Sex: 37 / F ADM Date: 08/31/23 Loc: MAMMO Attending Dr: Rubens Tim D.O. Ordering Physician: Rubens Tim D.O. Results: Date of Service: 08/31/23 Follow Up: Procedure(s): MM tomosynthesis diagnostic BI Accession Number(s): [id number] cc: Rubens Tim D.O.; Cas Dowell M.D. Patient Name: VIJAYA TRAN MR#: [id number] : 1985 Exam Date: 08/31/2023 Ordering Doctor: [...] cervical cancer at age 48. LOCATION: The [facility] BREAST COMPOSITION: There are scattered areas [...] Signed By: 08/31/23 1340 DD/ 1339 TD/TT: Housekeeper Child Care: Procedure Note Radiology, Radiologist, MD - 08/31/2023 The [place] [id number] Mammography Report Signed Patient: VIJAYA TRAN SMR#: [id number] : 1985Acct:[id number] Age/Sex: 37 / FADM Date: 08/31/23 Loc: MAMMO Attending Dr: Rubens Tim D.O. Ordering Physician: Rubens Tim D.O.Results: Date of Service: 08/31/23Follow Up: Procedure(s): MM tomosynthesis diagnostic BI Accession Number(s): [id number] cc: Rubens Tim D.O.; Cas Dowell M.D. Patient Name: VIJAYA TRAN MR#: [id number] : 1985 Exam Date: 08/31/2023 Ordering Doctor: [...] cervical cancer at age 48. LOCATION: The [facility] BREAST COMPOSITION: There are scattered areas [...] M.D. Signed By:08/31/23 1340 DD/ 1339 TD/TT: Housekeeper Child Care: us Generic External Data Provider CLINISYNC IMAGING Final Result * Hemoglobin A1c (01/01/2023 12:58 PM EST) Blood Venous blood specimen / Unknown Cas Dowell MD LAB BLOOD ORDERABLES Final Resul t from Last 3 Months or Most Recently Relevant to Health Maintenance Insurance [facility] BCBS Care Teams Ranch Manager Relationship Specialty Start Date End Date Cas Dowell MD PCP - General Family Medicine 04/09/23
--- OUTSIDE RECORDS SUMMARY | 2024-10-08 08:52 | XMS_ITS | Encounter Summary ---
Author Organization [facility] Address [id number] [address] [place] [address] Care Team Providers Care Property Maintenance Supervisor Name Role Phone Cas Galicia MD Primary Care Provider [phone] Encounter Details Date Type Department Care Team (Late st Contact Info) Description 03/11/2021 Orders Only [facility] Adult Neurology [address] [facility] [address] [place] [phone] Sasha Fernandez CMA Memory difficulties; Brain fog [...] 11/24/2024 10:00 AM EDT Office Visit [facility] Adult Endocrinology, A Department of [facility] [address] [phone] Akila Ballard MD [address] [address] 12/26/2024 10:30 AM EST Office Visit [facility] Neurology, A Department of [facility] [address] [address] Stella Flowers, PAPER PATTERN FOLDER-AUTOMOBILE TAILLIGHT ASSEMBLER [address] [address] documented as of this encounter [...] Pricila screen negative SUNQUEST 03/03/2021 Stella Flowers PAPER PATTERN FOLDER-[facility] LAB BLOOD ORDERABLES Final Result SUNQUEST * Protein electrophoresis, serum (03/03/2021) Albumin 4.6 [facility] Alpha 1 0.3 [facility] Alpha 2 9 [facility] Gamma Globulin 0.8 [facility] Total Protein 7.1 [facility] 03/03/2021 Stella Flowers PAPER PATTERN FOLDER-AUTOMOBILE TAILLIGHT ASSEMBLER LAB BLOOD ORDERABLES Final Result Performing Organization Address [facility] de Phone Number SUNQUEST * DRVVT (03/03/2021) Dilute Viper Venom Time 39 [facility]QUEST 03/03/2021 Stella Flowers PAPER PATTERN FOLDER-[facility] LAB BLOOD ORDERABLES Final Result Performing Organization Address City/[facility]/ZIP Co de Phone Number SUNQUEST * Homocysteine total (03/03/2021) Homocysteine 8.74 [facility]QUEST 03/03/2021 Result [facility] Stella Flowers PAPER PATTERN FOLDER-[facility] LAB BLOOD ORDERABLES Final Result Performing Organization Address [facility]/ZIP Co de Phone Number SUNQUEST * Methylmalonic acid screen (03/03/2021) Methylmalonic Acid 0.30 [facility]QUEST 03/03/2021 Stella Flowers PAPER PATTERN FOLDER-[facility] LAB BLOOD ORDERABLES Final Result SUNQUEST * [...] Absolute Basophil 0.1 [facility]QUEST 03/03/2021 Stella Flowers PAPER PATTERN FOLDER-AUTOMOBILE TAILLIGHT ASSEMBLER LAB BLOOD ORDERABLES Final Result [facility] * Folate Serum (03/03/2021) Folate >25.0 [facility] 03/03/2021 Stella Flowers PAPER PATTERN FOLDER-AUTOMOBILE TAILLIGHT ASSEMBLER LAB BLOOD ORDERABLES Final Result Performing Organization Address [facility]/ZIP Co de Phone Number SUNQUEST * Vitamin B12 (03/03/2021) Vitamin B-12 184 [facility]QUEST 03/03/2021 Stella Flowers PAPER PATTERN FOLDER-[facility] LAB BLOOD ORDERABLES Final Result Performing Organization Address City/[facility]/ZIP Co de Phone Number SUNQUEST documented in this encounter Visit Diagnoses Diagnosis Memory difficulties Memory loss Brain fog documented in this encounter Additional Health Concerns Assessment Noted Time PHQ-9 Depression Total Score: 16 022 1:06 PM EST documented as of this encounter Care Teams Property Maintenance Supervisor Relationship Specialty Start Date End Date Cas Galicia MD PCP - General Family Medicine 11/18/20 documented as of this encounter
--- OUTSIDE RECORDS SUMMARY | 2024-10-08 08:52 | XMS_ITS | Encounter Summary ---
Author Organization [facility] Address [address] [place] [address] Care Team Providers Care Head Tennis Coach Name Role Phone Cas Galicia MD Primary Care Provider [phone] Encounter Details Date Type Department Care Team (Late st Contact Info) Description 08/11/2024 [facility] [address] [place] [address] Cas Galicia MD [address] [place] [phone] ALL CBC WITH AUTO DIFF, MLR HEMOGLOBIN [...] How often do you attend chur or religion services? Patient declined 08/08/2024 Do you belong to any clubs o r organizations such as orthodoxy groups, unions, fraternal or athletic groups, or [...] medical care, and heating? Somewhat hard 08/08/2024 [facility] Occupat ional Health - Occupational [...] place to sleep or slept in a snf (including now)? Patient declined 04/08/2023 Housing Stability [...] any time in the past 12 m [facility], were you homeless or living in a snf (including now)? No 08/08/2024 Comments No Sex [...] EDT Office Visit [facility] [address] [facility] [place] [phone] Rubens Tim DO [address] [facility] [place] [address] 07/08/2025 8:20 AM EDT Office Visit [facility] [address] [place] [phone] Jodi Holden, PONCE [address] [place] [address] documented as of this encounter Visit Diagnoses Not on filedocumented in this encounter Care Teams Head Tennis Coach Relationship Specialty Start Date End Date Cas Galicia MD PCP - General Family Medicine 04/09/23 documented as of this encounter
--- OUTSIDE RECORDS SUMMARY | 2024-10-08 08:52 | XMS_ITS | Encounter Summary ---
Author Organization [facility] Address [address] [place] [address] Care Team Providers Care Marketing Community Liaison Name Role Phone Cas Galicia MD Primary Care Provider [phone] Reason for Visit * Reason Comments Med Refill Encounter Details Date Type Department Care Team (Late st Contact Info) Description 09/16/2024 [facility]ill [facility] [address] [place] [address] Cas Galicia MD [address] [place] [phone] Vitamin D deficiency Social History Tobacco Use [...] declined 08/08/2024 How often do you attend [facility] health system or caodaism services? Patient declined 08/08/2024 Do you belong to any clubs o r organizations such as caodaism groups, unions, fraternal or athletic groups, or [...] medical care, and heating? Somewhat hard 08/08/2024 [facility] of Occupat ional Health - Occupational Stress [...] any time in the past 12 m [facility], were you homeless or living in [...] EDT Office Visit [facility] [address] [place] [address] Rubens Tim DO [address] [facility] [place] [address] 07/08/2025 8:20 AM EDT Office Visit [facility] [address] [place] [address] Jodi Holden, PONCE [address] [address] documented as of this encounter Visit Diagnoses Diagnosis Vitamin D deficiency documented in this encounter Care Teams Marketing Community Liaison Relationship Specialty Start Date End Date Cas Galicia MD PCP - General Family Medicine 04/09/23 documented as of this encounter
--- OUTSIDE RECORDS SUMMARY | 2024-10-08 08:52 | XMS_ITS | Encounter Summary ---
Author Organization [facility] Address [id number] [address] [place] [address] Care Team Providers Care Clinical Transformation Specialist Name Role Phone Cas Galicia MD Primary Care Provider [phone] Encounter Details Date Type Department Care Team (Late st Contact Info) Description 02/18/2021 Orders Only [facility] [address] [phone] Ref Prov, [place] [address] Social History Tobacco Use Types Packs/Day Years [...] Description 11/24/2024 10:00 AM EDT Office Visit [facility] Adult Endocrinology, A Department of [facility] [address] [phone] Akila Ballard MD [address] [address] 12/26/2024 10:30 AM EST Office Visit [facility] Neurology, A Department of [facility] [address] [address] Stella Flowers, BOMB TECHNICIAN-CLERK SECRETARY [address] [address] documented as of this encounter [...] (11/14/2020) us Not In System Ref Prov WI IMAGING Final Res ult MANUALLY TRANSCRIBED RESULTS [...] ORDERABLES Final Res ult Performing Organization Address [facility] Phone Number MANUALLY TRANSCRIBED RESULTS * Echo 2.0 (11/12/2020) Anatomical Region Laterality Modality Chest N/A Ultrasound us Not In System Ref Prov CV ECHO ORDERABLES Final Result * ECG 12 lead (11/12/2020) us Not In System Ref Prov ECG ORDERABLES Final Res ult Performing Organization Address [facility] de Phone Number MANUALLY TRANSCRIBED RESULTS * CT angiogram chest (11/11/2020) Anatomical Region Laterality Modality Lung, Body, Chest, Vascular, Body Covera N/A Computed Tomography us Not In System Ref Prov IMG CT ORDERABLES Final R esult * ECG 12 lead (11/11/2020) us Not In System Ref Prov ECG ORDERABLES Final Res ult Performing Organization Address [facility] de Phone Number MANUALLY TRANSCRIBED RESULTS documented in this encounter Visit Diagnoses Not on filedocumented in this encounter Additional Health Concerns Assessment Noted Time PHQ-9 Depression Total Score: 16 02/16/ 022 1:06 PM EST documented as of this encounter Care Teams Clinical Transformation Specialist Relationship Specialty Start Date End Date Cas Galicia MD PCP - General Family Medicine 11/18/20 documented as of this encounter
--- OUTSIDE RECORDS SUMMARY | 2024-10-08 08:52 | XMS_ITS | Encounter Summary ---
Author Organization [facility] Address [id number] [address] [place] [address] Care Team Providers Care Home Care Manager Rn Name Role Phone Cas Galicia MD Primary Care Provider [phone] Encounter Details Date Type Department Care Team (Late st Contact Info) Description 06/17/2021 Orders Only [facility] [address] [place] [address] Ricky Anaya MD [address] [place] [address] Pre-op testing; Contact with and (suspected) exposure [...] Description 11/24/2024 10:00 AM EDT Office Visit [facility] Adult Endocrinology, A Department of [facility] [address] [phone] Akila Ballard MD [address] [address] 12/26/2024 10:30 AM EST Office Visit [facility] Neurology, A Department of [facility] [address] [address] Stella Flowers APRN-SURVEILLANCE OBSERVER [address] [address] documented as of this encounter Visit Diagnoses Diagnosis Pre-op testing Unspecified pre-operative examination Contact with and (suspected) exposure to covid-19 documented in this encounter Additional Health Concerns Assessment Noted Time PHQ-9 Depression Total Score: 17 04/2 022 10:30 AM EDT documented as of this encounter Care Teams Home Care Manager Rn Relationship Specialty Start Date End Date Cas Galicia MD PCP - General Family Medicine 11/18/20 documented as of this encounter
--- OUTSIDE RECORDS SUMMARY | 2024-10-08 08:53 | XMS_ITS | Encounter Summary ---
Author Organization [facility] Address [address] [place] [address] Care Team Providers Care Marble Setter Helper Name Role Phone Cas Dowell MD Primary Care Provider [phone] Encounter Details Date Type Department Care Team (Late st Contact Info) Description 09/29/2024 Clinisync Result Encounter [facility] External Department Unsolicited Cas Dowell MD [address] [place] [phone] Social History Tobacco Use Types Packs/Day Years [...] often do you attend chur ch or yarsani services? Patient declined 08/08/2024 Do [...] medical care, and heating? Somewhat hard 08/08/2024 [facility] Occupat ional Health - Occupational [...] place to sleep or slept in a longterm (including now)? Patient declined 04/08/2023 Housing Stability [...] any time in the past 12 m [facility], were you homeless or living in a longterm (including now)? No 08/08/2024 Comments No Sex [...] EDT Office Visit [facility] [address] [facility] [address] Rubens Tim DO [address] [facility] [place] [address] 07/08/2025 8:20 AM EDT Office Visit [facility] [address] [place] [address] Jodi Holden, PONCE [address] [place] [address] documented as of this encounter Procedures Procedure Name Priority Date/Time Associated Diagnosis Comments XR FOREARM 2 VIEWS RIGHT 09/29/2024 1:43 PM EDT documented in this encounter Results * XR forearm 2 views right (09/29/2024 1:43 PM EDT) Anatomical Region Laterality Modality Upper Extremities, Forearm Right Radio graphic Imaging 09/29/2024 1:43 PM EDT Narrative 09/29/2024 1:46 [place] [address] XRay Report Signed Patient: VIJAYA TRAN MR#: [id number] : 1985 Acct:[id number] Age/Sex: 38 / F ADM Date: 09/29/24 Loc: LAB Attending Dr: Cas Dowell M.D. Ordering Physician: Cas Dowell M.D. Date of Service: 09/29/24 Procedure(s): XR forearm RT 2V Accession Number(s): [id number] cc: Cas Dowell M.D. [address] [address] Patient Name: VIJAYA TRAN MRN: [id number] date: 1985 Sex: F Assigned Patient Location: LAB Current Patient Location: LAB Accession/Order Number: [id number] Exam Date: 09/29/2024 13:00 Report Date: 09/29/2024 13:43 At the request of: CAS DOWELL MD Procedure: XR forearm RT 2V RIGHT FOREARM - 2 views CLINICAL HISTORY: Fall. Arm pain COMPARISON: None FINDINGS: No focal soft tissue abnormality. No acute bony process. XR/XR forearm RT 2V IMPRESSION: NO ACUTE BONY PROCESS. Impression dictated by: Michael Price Jr., D.O. 09/29/2024 1:43 PM Dictation Location: [place] [address] Electronically authenticated by: [id number] Y Date: 09/29/2024 13:43 Dictated By: Michael Price M.D. Signed By: 09/29/241345 DD/ 42 TD/TT: Care Clinician: Procedure Note Radiology, Radiologist, - 09/29/2024 [facility] [place] [id number] XRay Report Signed Patient: VIJAYA TRAN SMR#: [id number] : 1985Acct:[id number] Age/Sex: 38 / FADM Date: 09/29/24 Loc: LAB Attending Dr: Cas Dowell M.D. Ordering Physician: Cas Dowell M.D. Date of Service: 09/29/24 Procedure(s): XR forearm RT 2V Accession Number(s): [id number] cc: Cas Dowell M.D. [facility] [place] [id number] Patient Name: VIJAYA TRAN MRN: [id number] date: 1985 Sex: F Assigned Patient Location: LAB Current Patient Location: LAB Accession/Order Number: [id number] Exam Date: 09/29/2024 13:00 Report Date: 09/29/2024 13:43 At the request of: CAS DOWELL MD Procedure: XR forearm RT 2V RIGHT FOREARM - 2 views CLINICAL HISTORY: Fall. Arm pain COMPARISON: None FINDINGS: No focal soft tissue abnormality. No acute bony process. XR/XR forearm RT 2V IMPRESSION: NO ACUTE BONY PROCESS. Impression dictated by: Michael Price Jr. DKerriOKerri 09/29/2024 1:43 PM Dictation Location: [place] [address] Electronically authenticated by: [id number] Y Date: 3:43 Dictated By: Michael Price M.D. Signed By:09/29/241345 DD/ 42 TD/TT: Care Clinician: Cas Dowell MD IMG XR PROCEDURES Final Result documented in this encounter Visit Diagnoses Not on filedocumented in this encounter Care Teams Marble Setter Helper Relationship Specialty Start Date End Date Cas Dowell MD PCP - General Family Medicine 04/09/23 documented as of this encounter
--- OUTSIDE RECORDS SUMMARY | 2024-10-08 08:53 | XMS_ITS | Encounter Summary ---
Author Organization [facility] Address [address] [place] [address] Care Team Providers Care Belling Machine Operator Name Role Phone Cas Galicia MD Primary Care Provider [phone] Encounter Details Date Type Department Care Team (Late st Contact Info) Description 09/29/2024 [facility] [address] [place] [address] Cas Galicia MD [address] [facility] [place] [phone] XR elbow 1 or 2 views right Social History Tobacco Use Types Packs/Day Years [...] How often do you attend chur or hoahaoism services? Patient declined 08/08/2024 Do you belong [...] medical care, and heating? Somewhat hard 08/08/2024 [facility] of Occupat ional Health - Occupational Stress [...] any time in the past 12 m [facility], were you homeless or [...] EDT Office Visit [facility] [address] [facility] [place] [address] Rubens Tim DO [address] [facility] [address] [place], [place] [phone] 07/08/2025 8:20 AM EDT Office Visit [facility] [address] [place] [address] Jodi Holden PA [address] [place] [address] documented as of this encounter Visit Diagnoses Not on filedocumented in this encounter Care Teams Belling Machine Operator Relationship Specialty Start Date End Date Cas Galicia MD PCP - General Family Medicine 04/09/23 documented as of this encounter
--- OUTSIDE RECORDS SUMMARY | 2024-10-08 08:53 | XMS_ITS | Encounter Summary ---
Author Organization [facility] Address [address] [place] [address] Care Team Providers Care Wet Chemistry Analyst Name Role Phone Cas Galicia MD Primary Care Provider [phone] Encounter Details Date Type Department Care Team (Late st Contact Info) Description 09/30/2024 Clinisync Result Encounter [facility] External [...] any clubs o r organizations such as evangelical groups, unions, fraternal or athletic groups, or [...] medical care, and heating? Somewhat hard 08/08/2024 [facility] of Occupat ional Health - Occupational [...] medical appointments or from getting medications? No 07/0 05/2024 In the past 12 months, has [...] a custodial (including now)? Patient declined 04/08/2023 Housing Stability [...] time in the past 12 m [facility], were you homeless or living in a custodial (including now)? No 08/08/2024 Comments No Sex [...] EDT Office Visit [facility] [address] [facility] [place] [address] Rubens Tim DO [address] [facility] [address] [place] [place], [place] [phone] 07/08/2025 8:20 AM EDT Office Visit [facility] [address] [place] [address] Jodi Holden, PONCE [address] [place] [address] documented as of this encounter Procedures Procedure Name Priority Date/Time Associated Diagnosis Comments [facility] CBC W AUTO DIFF BLD Routine 09/30/2024 8:42 AM EDT [facility] COMP METAB 1999 PNL SERPL Routine 09/30/2024 8:42 AM EDT documented in this encounter Results * (ABNORMAL) [facility] COMP METAB 1999 PNL SERPL (09/30/2024 8:42 AM EDT) [facility] [...] 74 - 99 mg/dL [facility] Comment: The [place] Diabetes Association (ADA) provides guidance for cutoff [...] Standards of Medical Care in Diabetes 2016, [place] [employer]. Diabetes Care. 2016.39(Suppl 1). [facility] [...] 8:42 AM EDT Narrative [facility] - 09/30/2024 9:10 AM EDT Specimen Type: BLOOD SPECIMEN Ordering Facility: [facility] Address: [address] [place] [address] Original Ordering Provider: FUENTES AMARAL us Generic External Data Provider JAYA alfaro Result Performing Organization Address City/State/[place] de Phone Number [facility] [address] [place] [address] * (ABNORMAL) [facility] CBC W AUTO DIFF [...] AM EDT 09/30/2024 8:42 AM EDT Narrative JAYA - 09/30/2024 8:47 AM EDT Specimen Type: BLOOD SPECIMEN Ordering Facility: [facility] Address: [address] [place] [id number] Original Ordering Provider: FUENTES AMARAL us Generic External Data Provider JAYA alfaro Result [facility] [address] [place] [address] documented in this encounter Visit Diagnoses Not on filedocumented in this encounter Care Teams Wet Chemistry Analyst Relationship Specialty Start Date End Date Cas Galicia MD PCP - General Family Medicine 04/09/23 documented as of this encounter
--- OUTSIDE RECORDS SUMMARY | 2024-10-08 08:53 | XMS_ITS | Clinical Summary ---
Author Organization [facility] Address [address] [place] [address] Care Team Providers Care Radar Operator Name Role Phone Cas Galicia MD Primary Care Provider [phone] Sai Perez MD Unavailable [phone] Rubens Tim DO Unavailable [phone] Allergies Active Allergy Reactions Criticality Noted Date Comments Naproxen Angioedema 09/06/2020 Aspirin Angioedema 02/23/2014 Bupropion Other: See Comments 06/21/2022 Reports like seizure activity and the fall asleep Other reaction(s): Other (See Comments) Reports like seizure activity and the fall asleep Reports like seizure activity and the fall asleep Cefaclor Shortness of Breath,Anaphylaxis,S welling High 09/04/2011 [...] and bleeds Lavender (Lavandula Angustifolia) Anaphylaxis 09/06/2020 Norethindrone-Ethin Estradiol Unknown 09/04/2011 Chest hurt and legs turned black -- saw Dr. Jorge London Penicillin G Benzathine Unknown 08/18/2021 Penicillins Rash,Itching [...] B12, 1,000 mcg ODT once daily. 04/06/19 Active VITAMIN D-3 125 mcg (5,000 unit) tab Take 5,000 Units by mouth once daily. 04/30/19 Active zonisamide (ZONEGRAN) 100 mg capsuleIndication s:Chronic migraine without aura, intractable, without status migrainosus Take 1 capsule by mouth once daily. 90 capsule 3 07/07/19 22 Active Additional Information Patient taking differently:100 mg ORAL2 TIMES DAILY, Reported on 09/30/2024 rimegepant (NURTEC ODT) 75 mg disintegrating tabletIndications :Chronic migraine without aura, intractable, without status migrainosus Take 1 tablet by mouth once daily as needed. No more than 1 dose in 24 hours. 8 tablet 11 07/07/19 Active cetirizine (ZYRTEC) 10 mg tabletIndications :Angioedema, initial encounter,Urticar ia Take 10 mg by mouth as needed. Active diphenhydrAMINE (BENADRYL) 25 mg tablet Take 50 mg by mouth every 6 hours as needed. Active UBRELVY 100 mg tablet TAKE 1 TABLET BY MOUTH AT ONSET OF MIGRAINE. MAY REPEAT IN 2 HOURS NEEDED. MAX 2 TABLET IN 24 HOURS 08/26/19 22 Active fremanezumab-vfrm subcutaneus auto-injector 225 mg/1.5 mL (AJOVY)Indication s:Chronic migraine without aura, intractable, without status migrainosus Inject 1.5 mL subcutaneously once every month. Do not shake. 1.5 mL 11 3 8:34 AM EDT 10/20/19 22 Active SITagliptin (JANUVIA) 100 mg tablet Take 1 tablet by mouth once daily. 10/21/19 22 Active levalbuterol tartrate HFA 45 mcg/actuation inhalerIndication s:Post-acute sequelae of COVID-19 (PASC),Moderate persistent asthma without [...] 23 Active aminocaproic acid (AMICAR) 500 mg tabletIndications :Qualitative platelet disorder (HCC) Take 2 tablets by mouth every 6 hours as needed (once prior to dentist and then after for 3-4 doses.) for up to 20 days. 40 tablet 3 10/03/19 23 Active magnesium glycinate 100 mg magnesium capsule Take 200 mg by mouth as directed. Active sAXagliptin (ONGLYZA) 5 mg tab Take 5 mg by mouth once daily. 02/10/19 25 Active liothyronine (CYTOMEL) 5 mcg tablet Take 5 mcg by mouth once daily. 01/31/20 24 Active potassium chloride (K-TAB) 10 mEq tablet Take 1 tablet by mouth once daily. 30 tablet 10/01/19 25 Active Magnesium 250 mg tab Take 250 mg by mouth. 2024 Discontin ued(Dupli martha Entry) predniSONE (DELTASONE) 50 mg Take 50 mg by mouth once daily. 09/26/192024 doxycycline (VIBRA-TABS) 100 mg tablet Take 100 mg by mouth two times a day. 09/26/19 25 2024 Active Problems Problem Noted Date Diagnosed [...] of pituitary gland 04/07/2015 Bleeding disorder 02/23/2014 Encounters Date Type Department Care Team Description 09/30/2024 9:30 AM EDT Visit (SP) Office Hematology/Oncology [address] [place] [address] [place] [address] Shweta Masters, LIO.MACHINE STOPPAGE FREQUENCY CHECKER POTS (postural orthostatic tachycardia syndrome) (Primary Dx); Bleeding disorder; Qualitative platelet disorder (HCC); Systemic lupus erythematosus, unspecified SLE type, unspecified organ involvement status (HCC); Celiac disease (HCC); Irritable bowel syndrome without diarrhea; History of 2019 novel coronavirus disease (COVID-19); Status post hysterectomy 09/30/2024 Travel from Last 3 Months Immunizations Immunization Administration Dates Next Due influenza (HD-IIV3) vaccine, age 65+ yr, high dose, trivalent, PF (FLUZONE HIGH-DOSE) 11/06/2019 influenza (IIV4) vaccine, ag e 6 mo - 64 yr, quadrivalent, PF (AFLURIA, FLUARIX, FLULAVAL, FLUZONE) 10/27/2019 influenza [id number] virus [facility] stockpile 11/20/2019 influenza vaccine, unspecified formulation 11/19,11/06/2019,10/27/2019 Family History Medical History Relation Comments Diabetes Father Heart disease Father at age 57 Hypertension Father Cardiomyopathy Mother at age 52 Diabetes Mother uncontrolled Heart Attack Mother First [place] at age 51 Hypertension Mother Ischemic Heart [...] is lower risk 8 10/02/2022 Data from: https://www.neighborhoodatlas.medicine.[facility].edu/. Last address used for calculation [address] [...] Mass Index 39.45 09/30/2024 8:54 AM EDT Plan of Treatment Upcoming Encounters Date Type Department Care Team (Late st Contact Info) Description 09/29/2025 9:15 AM EDT Office Visit [facility] [address] [address] 1 year follow up 09/29/2025 9:30 AM EDT Visit (SP) Office Hematology/Oncology [address] [address] Shweta Masters APRN.MACHINE STOPPAGE FREQUENCY CHECKER [address] [place] [address] 1 year follow up Health Maintenance Due Date Last Done Comments Annual PCP Team Chronic Dise ase Visit 12/20/2001 Anxiety Screening 12/20/2001 Depression Screening 12/20/2001 HIV Screening 12/20/2001 Hepatitis C Screening 12/20/2001 DTaP,Tdap,Td Vaccine (1 - Tdap) 12/20/2002 Hepatitis B Vaccine (1 of 3 - 19+ 3-dose series) 12/20/2002 Pneumococcal Vaccine (1 of 2 - PCV) 12/20/2002 Cervical Cancer Screening 12/20/2004 HPV Vaccine (1 - 3-dose SCDM series) 12/20/2010 Mammogram Screening 2023 Influenza Vaccine (#1) 2024 0, 11/06/2019, 11/06/2019, Additional history exists Procedures Procedure Name Priority Date/Time Associated Diagnosis Comments COMPREHENSIVE METABOLIC PANEL Routine 09/30/2024 8:42 AM EDT Qualitative platelet disorder (HCC) CBC + DIFF Routine 09/30/2024 8:42 AM EDT Qualitative platelet disorder (HCC) from Last 3 Months Results * (ABNORMAL) COMPREHENSIVE METABOLIC PANEL (09/30/2024 8:42 AM EDT) Pathologist [facility] Protein, Total 6.7 6.3 - 8.0 g/dL 09/30/2024 9:10 AM EDT [facility] Albumin 4.5 3.9 - 4.9 g/dL 09/30/2024 9:10 AM EDT [facility] Calcium, Total 9.7 8.5 - 10.2 mg/dL 09/30/2024 9:10 AM T [facility] Bilirubin, Total 0.3 0.2 - 1.3 mg/dL 09/30/2024 9:10 AM [facility] Alkaline Phosphatase 74 34 - 123 U/L 09/30/2024 9:10 AM [facility] AST 10(L) 13 - 35 U/L 09/30/2024 9:10 AM [facility] ALT 15 7 - 38 U/L 09/30/2024 9:10 AM T [facility] Glucose 145(H) 74 - 99 mg/dL 09/30/2024 9:10 AM [facility] Comment: The Canadian Diabetes Association (ADA) provides guidance for cutoff [...] Standards of Medical Care in Diabetes 2016, Canadian Diabetes Association. Diabetes Care. 2016.39(Suppl 1). BUN 19 7 - 21 mg/dL 09/30/2024 9:10 AM EDT [facility] Creatinine 0.97(H) 0.58 - 0.96 mg/dL 09/30/2024 9:10 AM EDT [facility] Sodium 139 136 - 144 mmol/L 09/30/2024 9:10 AM EDT [facility] Potassium 3.6(L) 3.7 - 5.1 mmol/L 09/30/2024 9:10 AM EDT [facility] Chloride 104 98 - 107 mmol/L 09/30/2024 9:10 AM EDT [facility] CO2 25 22 - 30 mmol/L 09/30/2024 9:10 AM EDT [facility] Anion Gap 10 8 - 15 mmol/L 09/30/2024 9:10 AM EDT [facility] Estimated Glomerular Filtration Rate 76 >=60 mL/min/1. 73m 09/30/2024 9:10 AM EDT [facility] Comment:Estimated Glomerular Filtration Rate (eGFR) is calculated using the 2020 CKD-EPI creatinine equation. This equation utilizes serum creatinine, sex, and age as parameters. The creatinine assay has traceable calibration to isotope dilution- mass spectrometry. Refer to KDIGO guidelines for clinical interpretation. In patients with unstable renal function, e.g. those with acute kidney injury, the eGFR may not accurately reflect actual GFR. Blood BLOOD SPECIMEN / Unknown Venipuncture / Unknown 09/30/2024 8:42 AM EDT 09/30/2024 8:42 AM EDT us Jayme Marinelli MD LABORATORY Final Result [facility] [address] [place] [address] * (ABNORMAL) COMPLETE BLOOD COUNT AND DIFFERENTIAL (09/30/2024 8:42 AM EDT) WBC 9.84 3.70 - 11.00 k/uL 09/30/2024 8:47 AM EDT [facility] RBC 4.75 3.90 - 5.20 m/uL 09/30/2024 8:47 AM EDT [facility] Hemoglobin 14.1 11.5 - 15.5 g/dL 09/30/2024 8:47 AM EDT [facility] Hematocrit 41.8 36.0 - 46.0 % 09/30/2024 8:47 AM EDT [facility] MCV 88.0 80.0 - 100.0 fL 09/30/2024 8:47 AM EDT [facility] MCH 29.7 26.0 - 34.0 pg 09/30/2024 8:47 AM EDT [facility] MCHC 33.7 30.5 - 36.0 g/dL 09/30/2024 8:47 AM EDT [facility] RDW-CV 11.9 11.5 - 15.0 % 09/30/2024 8:47 AM EDT [facility] Platelet Count 254 150 - 400 k/uL 09/30/2024 8:47 AM EDT [facility] MPV 9.8 9.0 - 12.7 fL 09/30/2024 8:47 AM EDT [facility] Neutrophils % 71.7 % 09/30/2024 8:47 AM EDT [facility] Abs Neut 7.06 1.45 - 7.50 k/uL 09/30/2024 8:47 AM EDT [facility] Lymphocytes % 22.2 % 09/30/2024 8:47 AM EDT [facility] Abs Lymph 2.18 1.00 - 4.00 k/uL 09/30/2024 8:47 AM EDT [facility] Monocytes % 3.5 % 09/30/2024 8:47 AM EDT [facility] Abs [place] 0.34 <0.87 k/uL 09/30/2024 8:47 AM EDT [facility] Eosinophils % 0.9 % 09/30/2024 8:47 AM EDT [facility] Abs Eosin 0.09 <0.46 k/uL 09/30/2024 8:47 AM EDT [facility] Basophils % 0.6 % 09/30/2024 8:47 AM EDT [facility] Abs Baso 0.06 <0.11 k/uL 09/30/2024 8:47 AM EDT [facility] Immature Granulocytes % 1.1 % 09/30/2024 8:47 AM EDT [facility] Abs Immature Gran 0.11(H) <0.10 k/uL 09/30/2024 8:47 AM EDT [facility] NRBC 0.0 /100 WBC 09/30/2024 8:47 AM EDT [facility] Absolute nRBC <0.01 <0.01 k/uL 09/30/2024 8:47 AM EDT [facility] Diff Type Auto 09/30/2024 8:47 AM EDT [facility] Blood BLOOD SPECIMEN / Unknown Venipuncture / Unknown 09/30/2024 8:42 AM EDT 09/30/2024 8:42 AM EDT us Jayme Marinelli MD LABORATORY Final Result [facility] [address] [place] [address] from Last 3 Months Insurance [employer] PPO Care Teams Radar Operator Relationship Specialty Start Date End Date Cas Galicia MD PCP - General Family Medicine 02/20/14 Sai Perez MD [address] [facility] [place], [place] [id number] Primary Staff Physician Cardiology 07/21/21 Rubens Tim DO [address] [place] [address] [place] [address] Referring Fermenter Wine 08/05/21
--- OUTSIDE RECORDS SUMMARY | 2024-10-08 08:53 | XMS_ITS | Encounter Summary ---
Author Organization [facility] Address [address] [place] [address] Care Team Providers Care Cigar Head Piercer Name Role Phone Cas Galicia MD Primary Care Provider [phone] Sai Perez MD Unavailable [phone] Rubens Tim DO Unavailable [phone] Source Comments In the event this information is protected by the Federal Confidentiality of Alcohol and Drug AbusePatient Records regulations: The Federal rules restrict any use of the information to criminally investigate or prosecute any alcohol or drug abuse patient.[facility] Encounter Details Date Type Department Care Team (Late st Contact Info) Description 08/30/2021 Patient [facility] [address] [place] [address] Provider, Ccf Referral to Wellness [...] on file 08/15/2021 Data from: https://www.neighborhoodatlas.medicine.[facility]/. Last address used for calculation [...] Description 09/29/2025 9:15 AM EDT Office Visit [facility] [address] [place] [address] [place] [address] 1 year follow up 09/29/2025 9:30 AM EDT Visit (SP) Office Hematology/Oncology [address] [place] [address] Shweta Masters APRN.ETL INFORMATICA DEVELOPER [address] [place] [place] [address] 1 year follow up documented as of this encounter Visit Diagnoses Not on filedocumented in this encounter Care Teams Cigar Head Piercer Relationship Specialty Start Date End Date Cas Galicia MD PCP - General Family Medicine 02/20/14 Sai Perez MD [address] [place] [address] Primary Staff Physician Cardiology 07/21/21 Rubens Tim DO [address] [place] [address] [place] [address] Referring Parking Station Attendant 08/05/21 documented as of this encounter
--- OUTSIDE RECORDS SUMMARY | 2024-10-08 08:53 | XMS_ITS | Encounter Summary ---
Author Organization [facility] Address [address] [place] [address] Care Team Providers Care Truck Loader Name Role Phone Cas Galicia MD Primary [...] st Contact Info) Description 06/04/2020 Orders Only [facility] Part of [address] [address] Akila Ballard MD [address] [place] [address] Social History Tobacco Use Types Packs/Day Years [...] Description 03/19/2025 9:45 AM EST Office Visit [facility] Part of [facility] [address] [place] [address] David Mcclure MD [address] [facility] [address] [place] [address] KATELIN; 6 mth follow up with Samuel [...] documented as of this encounter Care Teams Truck Loader Relationship Specialty Start Date End Date Cas Galicia MD PCP - General 09/04/11 documented as of this encounter
--- OUTSIDE RECORDS SUMMARY | 2024-10-08 08:53 | XMS_ITS | Encounter Summary ---
Author Organization [facility] Address [address] [place] [address] Care Team Providers Care Electrical Intern Name Role Phone Cas Dowell MD Primary Care Provider [phone] Encounter Details Date Type Department Care Team (Late st Contact Info) Description 09/29/2024 Clinisync Result Encounter [facility] External Department Unsolicited Cas Dowell MD [address] [place] [address] Social History Tobacco Use Types Packs/Day Years [...] often do you attend chur ch or sikh services? Patient declined 08/08/2024 Do you belong to any clubs o r organizations such as taoism groups, unions, fraternal or athletic groups, or [...] medical care, and heating? Somewhat hard 08/08/2024 [facility] - [...] any time in the past 12 m [facility], were you homeless or living [...] EDT Office Visit [facility] [address] [place] [place] [address] Rubens Tim DO [address] [place] [address] 07/08/2025 8:20 AM EDT Office Visit [facility] [address] [place] [address] Jodi Holden, PONCE [address] [place] [address] documented as of this encounter Procedures Procedure Name Priority Date/Time Associated Diagnosis Comments XR WRIST 1-2 VIEWS RIGHT 09/29/2024 1:43 PM EDT documented in this encounter Results * XR wrist 1 or 2 views right (09/29/2024 1:43 PM EDT) Anatomical Region Laterality Modality Upper Extremities, Wrist Right Radiogr aphic Imaging 09/29/2024 1:43 PM EDT Narrative 09/29/2024 1:45 [place] [address] XRay Report Signed Patient: VIJAYA TRAN MR#: [id number] : 1985 Acct:[id number] Age/Sex: 38 / F ADM Date: 09/29/24 Loc: LAB Attending Dr: Cas Dowell M.D. Ordering Physician: Cas Dowell M.D. Date of Service: 09/29/24 Procedure(s): XR wrist RT 2V Accession Number(s): [id number] cc: Cas Dowell M.D. [address] [address] Patient Name: VIJAYA TRAN MRN: [id number] date: 1985 Sex: F Assigned Patient Location: LAB Current Patient Location: LAB Accession/Order Number: [id number] Exam Date: 09/29/2024 13:00 Report Date: 09/29/2024 [...] PROCESS. Impression dictated by: Michael Price Jr., D.OKerri 09/29/2024 1:43 PM Dictation Location: [place] [address] Electronically authenticated by: [id number] Y Date: 09/29/2024 13:43 Dictated By: Michael Price M.D. Signed By: 09/29/241344 DD/ 42 TD/TT: Telephoto Installer: Procedure Note Radiology, Radiologist, - 09/29/2024 [place] [address] XRay Report Signed Patient: VIJAYA TRAN SMR#: [id number] : 1985Acct:[id number] Age/Sex: 38 / FADM Date: 09/29/24 Loc: LAB Attending Dr: Cas Dowell M.D. Ordering Physician: Cas Dowell M.D. Date of Service: 09/29/24 Procedure(s): XR wrist RT 2V Accession Number(s): [id number] cc: Cas Dowell M.D. [place] [address] Patient Name: VIJAYA TRAN MRN: [id number] date: 1985 Sex: F Assigned Patient Location: LAB Current Patient Location: LAB Accession/Order Number: [id number] Exam Date: 09/29/2024 13:00 Report Date: 09/29/2024 [...] Jr., D.O. 09/29/2024 1:43 PM Dictation Location: [place] [address] Electronically authenticated by: [id number] Y Date: 3:43 Dictated By: Michael Price M.D. Signed By:09/29/241344 DD/ 42 TD/TT: Telephoto Installer: Cas Dowell MD IMG XR PROCEDURES Final Result documented in this encounter Visit Diagnoses Not on filedocumented in this encounter Care Teams Electrical Intern Relationship Specialty Start Date End Date Cas Dowell MD PCP - General Family Medicine 04/09/23 documented as of this encounter
--- OUTSIDE RECORDS SUMMARY | 2024-10-08 08:53 | XMS_ITS | Encounter Summary ---
Author Organization [facility] Address [address] [place] [address] Care Team Providers Care Supervisor Instant Potato Processing Name Role Phone Cas Galicia MD Primary Care Provider [phone] Sai Perez MD Unavailable [phone] Rubens Tim DO Unavailable [phone] Source Comments In the event this information is protected by the Federal Confidentiality of Alcohol and Drug AbusePatient Records regulations: The Federal rules restrict any use of the information to criminally investigate or prosecute any alcohol or drug abuse patient.[facility] Encounter Details Date Type Department Care Team (Late st Contact Info) Description 05/30/2021 Patient Msg Neurology [address] [place] [address] Provider, Ccf Important Medication for [...] N ot on file 09/06/2020 Data from: https://www.neighborhoodatlas.medicine.[facility]/. Last address used for calculation Not [...] Description 09/29/2025 9:15 AM EDT Office Visit [facility] [address] [place] [address] 1 year follow up 09/29/2025 9:30 AM EDT Visit (SP) Office Hematology/Oncology [address] [place] [address] Shweta Masters APRN.HUMAN RESOURCES TEMP [address] [place] [address] 1 year follow up documented as of this encounter Visit Diagnoses Not on filedocumented in this encounter Care Teams Supervisor Instant Potato Processing Relationship Specialty Start Date End Date Cas Galicia MD PCP - General Family Medicine 02/20/14 Sai Perez MD [address] [facility] [place] [address] Primary Staff Physician Cardiology 07/21/21 Rubens Tim DO [address] [place] [address] [place] [address] Referring Schedule Checker 08/05/21 documented as of this encounter
--- OUTSIDE RECORDS SUMMARY | 2024-10-08 08:53 | XMS_ITS | Encounter Summary ---
Author Organization [facility] Address [address] [place] [address] Care Team Providers Care Wheel Buffer Name Role Phone Cas Galicia MD Primary Care Provider [phone] Sai Perez MD Unavailable [phone] Rubens Tim DO Unavailable Source Comments In the event this information is protected by the Federal Confidentiality of Alcohol and Drug AbusePatient Records regulations: The Federal rules restrict any use of the information to criminally investigate or prosecute any alcohol or drug abuse patient.[facility] Encounter Details Date Type Department Care Team (Late st Contact Info) Description 07/29/2021 Patient Msg Neurological Confucianism [address] [place] [id number] Judith Valdes PSYD [address] [place] [address] Scheduling Social History Tobacco Use [...] N ot on file 07/01/2021 Data from: https://www.neighborhoodatlas.medicine.[facility]/. Last address used for calculation [...] EDT Office Visit [facility] [address] [place] [address] 1 year follow up 09/29/2025 9:30 AM EDT Visit (SP) Office Hematology/Oncology [address] [address] Shweta Masters APRN.FIREWORKS DISPLAY SPECIALIST [address] [place] [address] 1 year follow up documented as of this encounter Visit Diagnoses Not on filedocumented in this encounter Care Teams Wheel Buffer Relationship Specialty Start Date End Date Cas Galicia MD PCP - General Family Medicine 02/20/14 Sai Perez MD [address] [place] [address] Primary Staff Physician Cardiology 07/21/21 Rubens Tim DO [address] [place] [address] [place] [address] Referring Shirt Folder 08/05/21 documented as of this encounter
--- OUTSIDE RECORDS SUMMARY | 2024-10-08 08:53 | XMS_ITS | Encounter Summary ---
Author Organization [facility] Address [address] [place] [address] Care Team Providers Care Electrician'S Helper Name Role Phone Cas Galicia MD Primary Care Provider [phone] Cas Galicia MD Primary Care Provider [phone] Cas Galicia MD Unavailable Cas Galicia MD Unavailable Reason for Visit * Reason Comments Med Refill Encounter Details Date Type Department Care Team (Late st Contact Info) Description 03/22/2023 Refill [facility] [address] [place] [address] Cas Galicia MD [address] [place] [address] Mild persistent asthma, uncomplicated (HCC); Asthma (HCC) [...] 12/01/2024 10:40 AM EDT Office Visit [facility] [address] [place] [address] [place] [address] Rubens Tim, [address] [place], [place] [id number] 07/08/2025 8:20 AM EDT Office Visit [facility] [address] [place] [address] Jodi Holden, PA [address] [place] [address] documented as of this encounter Visit Diagnoses Diagnosis Mild persistent asthma, uncomplicated (HCC) Asthma (HCC) Unspecified asthma documented in this encounter Care Teams Electrician'S Helper Relationship Specialty Start Date End Date Cas Galicia MD PCP - General Family Medicine 12/06/22 04/08/23 Cas Galicia MD PCP - General Family Medicine 04/09/23 Cas Galicia MD [address] [place] [address] PCP - [employer] 06/06/23 Cas Galicia MD [address] [place] [address] PCP - [employer] 11/06/23 documented as of this encounter
--- OUTSIDE RECORDS SUMMARY | 2024-10-08 08:53 | XMS_ITS | Encounter Summary ---
Author Organization [facility] Address [address] [place] [address] Care Team Providers Care Power Shear Operator Name Role Phone Cas Galicia MD Primary Care Provider [phone] Reason for Visit * Reason Comments Med Change Request Encounter Details Date Type Department Care Team (Late st Contact Info) Description 04/11/2023 Refill [facility] [address] [place] [address] Macrina Wadsworth, SENIOR NET DEVELOPER [address] [place] [address] Autonomic dysfunction Social History Tobacco [...] dysfunction documented in this encounter Care Teams Power Shear Operator Relationship Specialty Start Date End Date Cas Galicia MD [address] [place] [address] PCP - General 02/17/22 documented as of this encounter
--- OUTSIDE RECORDS SUMMARY | 2024-10-08 08:53 | XMS_ITS | Encounter Summary ---
Author Organization [facility] Address [address] [facility], [address] [place] [address] Care Team Providers Care Mechanical Adjuster Name Role Phone Cas Galicia MD Primary Care Provider + Reason for Visit * Reason Comments Other Encounter Details Date Type Department Care Team (Late Contact Info) Description 03/13/2014 Refill [facility] [place] [address] [place] [address] Loraine Morgan DO [address] [place] [address] Other Social History Tobacco Use [...] Description 03/19/2025 9:45 AM EST Office Visit [facility] Part of [place] [id number] David Mcclure MD [facility] [address] [place] [address] KATELIN; 6 mth follow up with Samuel [...] documented as of this encounter Care Teams Mechanical Adjuster Relationship Specialty Start Date End Date Cas Galicia MD PCP - General 09/04/11 documented as of this encounter
--- OUTSIDE RECORDS SUMMARY | 2024-10-08 08:53 | XMS_ITS | Encounter Summary ---
Author Organization [facility] Address [address] [place] [address] Care Team Providers Care Skin Grader Name Role Phone Cas Galicia MD Primary Care Provider [phone] Sai Perez MD Unavailable [phone] Rubens Tim DO Unavailable [phone] Source Comments In the event this information is protected by the Federal Confidentiality of Alcohol and Drug AbusePatient Records regulations: The Federal rules restrict any use of the information to criminally investigate or prosecute any alcohol or drug abuse patient.[facility] Encounter Details Date Type Department Care Team (Late st Contact Info) Description 08/24/2021 Patient Msg [facility] [address] [place] [address] Provider, Ccf REFERRAL-WELLNESS CONSULT Social [...] N ot on file 08/15/2021 Data from: https://www.neighborhoodatlas.medicine.[facility]/. Last address used for calculation [address] [...] Description 09/29/2025 9:15 AM EDT Office Visit [facility] [address] [place] [address] 1 year follow up 09/29/2025 9:30 AM EDT Visit (SP) Office Hematology/Oncology [address] [place] [address] [place] [address] Shweta Masters APRN.[facility] [address] [place] [address] 1 year follow up documented as of this encounter Visit Diagnoses Not on filedocumented in this encounter Care Teams Skin Grader Relationship Specialty Start Date End Date Cas Galicia MD PCP - General Family Medicine 02/20/14 Sai Perez MD [address] [place] [address] Primary Staff Physician Cardiology 07/21/21 Rubens Tim DO [address] [place] [address] [place] [address] Referring Straddle Bug Driver 08/05/21 documented as of this encounter
--- OUTSIDE RECORDS SUMMARY | 2024-10-08 08:53 | XMS_ITS | Encounter Summary ---
Author Organization [facility] Address [address] [place] [address] Care Team Providers Care Glass Blower Name Role Phone Cas Galicia MD Primary Care Provider [phone] Sai Perez MD Unavailable [phone] Rubens Tim DO Unavailable [phone] Source Comments In the event this information is protected by the Federal Confidentiality of Alcohol and Drug AbusePatient Records regulations: The Federal rules restrict any use of the information to criminally investigate or prosecute any alcohol or drug abuse patient.[facility] Encounter Details Date Type Department Care Team (Late st Contact Info) Description 08/31/2021 Get Medical Advice [facility] [address] [place] [address] Leno Bright MD [facility] [address] [place] [address] Nutrition Visits Social History Tobacco [...] N ot on file 08/15/2021 Data from: https://www.neighborhoodatlas.medicine.[facility]/. Last address used for [...] Description 09/29/2025 9:15 AM EDT Office Visit [facility] [address] [place] [address] 1 year follow up 09/29/2025 9:30 AM EDT Visit (SP) Office Hematology/Oncology [address] [place] [address] Shweta Masters APRN.BLUEPRINT CUTTER [address] [place] [address] 1 year follow up documented as of this encounter Visit Diagnoses Not on filedocumented in this encounter Care Teams Glass Blower Relationship Specialty Start Date End Date Cas Galicia MD PCP - General Family Medicine 02/20/14 Sai Perez MD [address] [facility] [place] [address] Primary Staff Physician Cardiology 07/21/21 Rubens Tim DO [address] [place] [address] [place] [address] Referring Electrical Design Technician 08/05/21 documented as of this encounter
--- OUTSIDE RECORDS SUMMARY | 2024-10-08 08:53 | XMS_ITS | Encounter Summary ---
Author Organization [facility] Address [address] [place] [address] Care Team Providers Care Video Game Script Writer Name Role Phone Cas Galicia MD Primary Care Provider [phone] Sai Perez MD Unavailable Rubens Tim DO Unavailable [phone] Source Comments In the event this information is protected by the Federal Confidentiality of Alcohol and Drug AbusePatient Records regulations: The Federal rules restrict any use of the information to criminally investigate or prosecute any alcohol or drug abuse patient.[facility] Encounter Details Date Type Department Care Team (Late st Contact Info) Description 06/14/2021 Get Medical Advice Endocrinology [address] [place] [address] Jackelyn Marques MD [address] [place] [address] Labs Social History Tobacco Use [...] N ot on file 09/06/2020 Data from: https://www.neighborhoodatlas.medicine.[facility] [place]/. Last address used for calculation Not on [...] Description 09/29/2025 9:15 AM EDT Office Visit [facility] [address] [place] [address] 1 year follow up 09/29/2025 9:30 AM EDT Visit (SP) Office Hematology/Oncology [address] [place] [address] Shweta Masters APRN.ACUTE CARE PHYSICIAN [address] [place] [address] 1 year follow up documented as of this encounter Visit Diagnoses Not on filedocumented in this encounter Care Teams Video Game Script Writer Relationship Specialty Start Date End Date Cas Galicia MD PCP - General Family Medicine 02/20/14 Sai Perez MD [address] [facility] [place] [place] [address] Primary Staff Physician Cardiology 07/21/21 Rubens Tim DO [address] [place] [address] [place] [address] Referring Valve Liner Rubber 08/05/21 documented as of this encounter
--- OUTSIDE RECORDS SUMMARY | 2024-10-08 08:53 | XMS_ITS | Encounter Summary ---
Author Organization [facility] Address [address] [place] [address] Care Team Providers Care Electrician Research Name Role Phone Cas Galicia MD Primary Care Provider [phone] Sai Perez MD Unavailable [phone] Rubens Tim DO Unavailable [phone] Source Comments In the event this information is protected by the Federal Confidentiality of Alcohol and Drug AbusePatient Records regulations: The Federal rules restrict any use of the information to criminally investigate or prosecute any alcohol or drug abuse patient.[facility] Encounter Details Date Type Department Care Team (Late st Contact Info) Description 08/26/2021 Patient Msg Neurology [address] [place] [address] Provider, Ccf Appointment Cancellation Social [...] on file 08/15/2021 Data from: https://www.neighborhoodatlas.medicine.[facility]/. Last address used for calculation [address] [...] Description 09/29/2025 9:15 AM EDT Office Visit [facility] [address] [place] [address] [place] [address] 1 year follow up 09/29/2025 9:30 AM EDT Visit (SP) Office Hematology/Oncology [address] [place] [address] [place] [address] Shweta Masters APRN.[address] [place] [address] 1 year follow up documented as of this encounter Visit Diagnoses Not on filedocumented in this encounter Care Teams Electrician Research Relationship Specialty Start Date End Date Cas Galicia MD PCP - General Family Medicine 02/20/14 Sai Perez MD [address] [facility] [place] [address] Primary Staff Physician Cardiology 07/21/21 Rubens Tim DO [address] [place] [address] [place] [address] Referring Stage Hand 08/05/21 documented as of this encounter
--- OUTSIDE RECORDS SUMMARY | 2024-10-08 08:53 | XMS_ITS | Encounter Summary ---
Author Organization [facility] Address [address] [place] [address] Care Team Providers Care Residential Pest Control Technician Name Role Phone Cas Galicia MD Primary Care Provider [phone] Sai Perez MD Unavailable [phone] Rubens Tim DO Unavailable [phone] Source Comments In the event this information is protected by the Federal Confidentiality of Alcohol and Drug AbusePatient Records regulations: The Federal rules restrict any use of the information to criminally investigate or prosecute any alcohol or drug abuse patient.[facility] Encounter Details Date Type Department Care Team (Late st Contact Info) Description 06/03/2021 Patient Msg Neurology [address] [place] [address] Peter Knight APRN.EMERGENCY RESPONSE COORDINATOR NO FORWARDING ADDRESS Results Social History Tobacco [...] N ot on file 09/06/2020 Data from: https://www.neighborhoodatlas.medicine.[facility]/. Last address used for calculation Not on [...] EDT Office Visit [facility] [address] [place] [address] [place] [address] 1 year follow up 09/29/2025 9:30 AM EDT Visit (SP) Office Hematology/Oncology [address] [place] [address] Shweta Masters APRN.EMERGENCY RESPONSE COORDINATOR [address] [place] [address] 1 year follow up documented as of this encounter Visit Diagnoses Not on filedocumented in this encounter Care Teams Residential Pest Control Technician Relationship Specialty Start Date End Date Cas Galicia MD PCP - General Family Medicine 02/20/14 Sai Perez MD [address] [place] [address] Primary Staff Physician Cardiology 07/21/21 Rubens Tim DO [address] [place] [address] [place] [address] Referring Archeologist 08/05/21 documented as of this encounter
--- OUTSIDE RECORDS SUMMARY | 2024-10-08 08:53 | XMS_ITS | Encounter Summary ---
Author Organization [facility] Address [address] [place] [address] Care Team Providers Care Osd Clerk Name Role Phone Cas Dowell MD Primary Care Provider [phone] Encounter Details Date Type Department Care Team (Late st Contact Info) Description 09/29/2024 Clinisync Result Encounter [facility] External Department Unsolicited Cas Dowell MD [address] [place] [address] Social History Tobacco Use Types Packs/Day Years [...] often do you attend chur ch or episcopal services? Patient declined 08/08/2024 Do you belong [...] medical care, and heating? Somewhat hard 08/08/2024 [facility] - Occup[facility] Stress [...] a penitentiary (including now)? Patient declined 04/08/2023 Housing Stability [...] any time in the past 12 m [facility], were you homeless or living in a penitentiary (including now)? No 08/08/2024 Comments No Sex [...] EDT Office Visit [facility] [address] [place] [address] Rubens Tim DO [address] [place] [place] [address] 07/08/2025 8:20 AM EDT Office Visit [facility] [address] [place] [address] Jodi Holden, PONCE [address] [place] [address] documented as of this encounter Procedures Procedure Name Priority Date/Time Associated Diagnosis Comments XR ELBOW 1-2 VIEWS RIGHT 09/29/2024 1:44 PM EDT documented in this encounter Results * XR elbow 1 or 2 views right (09/29/2024 1:44 PM EDT) Anatomical Region Laterality Modality Upper Extremities, Elbow Right Radiogr aphic Imaging 09/29/2024 1:44 PM EDT Narrative 09/29/2024 1:46 [place] [address] XRay Report Signed Patient: VIJAYA TRAN MR#: [id number] : 1985 Acct:[id number] Age/Sex: 38 / F ADM Date: 09/29/24 Loc: LAB Attending Dr: Cas Dowell M.D. Ordering Physician: Cas Dowell M.D. Date of Service: 09/29/24 Procedure(s): XR elbow RT 2V Accession Number(s): [id number] cc: Cas Dowell M.D. [address] [address] Patient Name: VIJAYA TRAN MRN: [id number] date: 1985 Sex: F Assigned Patient Location: LAB Current Patient Location: LAB Accession/Order Number: [id number] Exam Date: 09/29/2024 13:00 Report Date: 09/29/2024 [...] Jr., D.O. 09/29/2024 1:44 PM Dictation Location: [place] [address] Electronically authenticated by: [id number] Y Date: 09/29/2024 13:44 Dictated By: Michael Price M.D. Signed By: 09/29/241345 DD/ 43 TD/TT: Process Mechanic: Procedure Note Radiology, Radiologist, - 09/29/2024 [facility] [place] [id number] XRay Report Signed Patient: VIJAYA TRAN SMR#: [id number] : 1985Acct:[id number] Age/Sex: 38 / FADM Date: 09/29/24 Loc: LAB Attending Dr: Cas Dowell M.D. Ordering Physician: Cas Dowell M.D. Date of Service: 09/29/24 Procedure(s): XR elbow RT 2V Accession Number(s): [id number] cc: Cas Dowell M.D. [place] [address] Patient Name: VIJAYA TRAN MRN: [facility]:[id number] date: 1985 Sex: F Assigned Patient Location: LAB Current Patient Location: LAB Accession/Order Number: [id number] Exam Date: 09/29/2024 13:00 Report Date: 09/29/2024 [...] Jr., D.O. 09/29/2024 1:44 PM Dictation Location: [place] [address] Electronically authenticated by: [id number] Y Date: 3:44 Dictated By: Michael Price M.D. Signed By:09/29/241345 DD/ 43 TD/TT: Process Mechanic: Cas Dowell MD IMG XR PROCEDURES Final Result documented in this encounter Visit Diagnoses Not on filedocumented in this encounter Care Teams Osd Clerk Relationship Specialty Start Date End Date Cas Dowell MD PCP - General Family Medicine 04/09/23 documented as of this encounter
--- OUTSIDE RECORDS SUMMARY | 2024-10-08 08:53 | XMS_ITS | Encounter Summary ---
Author Organization [facility] Address [address] [place] [address] Care Team Providers Care Lighting Engineering Technician Name Role Phone Cas Galicia MD Primary Care Provider [phone] Encounter Details Date Type Department Care Team (Late st Contact Info) Description 02/21/2022 Lab Requisition [facility] [address] [place] [address] Pat Garrett NP Social History Tobacco Use [...] AM EST) Case Report Electron Microscopy Case: [id number] Authorizing Provider: Unknown Unknown Collected: 02/17/2022 0000 Ordering Location: [facility] Received: 02/21/2022 0655 Pathologist: Shree Aldana, PhD Cosigner: Ashley Marshall MD Specimen: Blood, Venous 02/22/2022 1:40 PM EST [facility] ([facility]) Final Diagnosis Sample was drawn on 02.17.22 and received on 02.21.22. This is too old for assessment. 02/22/2022 1:40 PM EST [facility] ([facility]) at 1429 EST Comment No charge has been applied to this sample. 02/22/2022 1:40 PM EST [facility] ([facility]) Blood Venous blood specimen / Unknown 02/17/2022 02/21/2022 6:55 AM EST Pat Garrett GEOPOLITICS TEACHER LAB PATHOLOGY ORDERABLES Final R esult [facility] ([facility]) [address] [facility] [place], [place] [address] documented in this encounter Visit Diagnoses Not on filedocumented in this encounter Care Teams Lighting Engineering Technician Relationship Specialty Start Date End Date Cas Galicia MD [address] [place] [address] PCP - General 02/17/22 documented as of this encounter
--- OUTSIDE RECORDS SUMMARY | 2024-10-08 08:53 | XMS_ITS | Encounter Summary ---
Author Organization [facility] Address [address] [place] [address] Care Team Providers Care Lead Inspector Name Role Phone Cas Galicia MD Primary Care Provider [phone] Sai Perez MD Unavailable [phone] Rubens Tim DO Unavailable [phone] Source Comments In the event this information is protected by the Federal Confidentiality of Alcohol and Drug AbusePatient Records regulations: The Federal rules restrict any use of the information to criminally investigate or prosecute any alcohol or drug abuse patient.[facility] Encounter Details Date Type Department Care Team (Late st Contact Info) Description 06/29/2021 Patient Msg Neurology [address] [place] [address] Peter Knight APRN.ART CLASS MODEL NO FORWARDING ADDRESS MRI and CT result [...] N ot on file 07/01/2021 Data from: https://www.neighborhoodatlas.medicine.[facility]/. Last address used for calculation [address] [...] Description 09/29/2025 9:15 AM EDT Office Visit [facility] [address] [place] [address] 1 year follow up 09/29/2025 9:30 AM EDT Visit (SP) Office Hematology/Oncology [address] [place] [address] Shweta Masters APRN.ART CLASS MODEL [address] [place] [address] 1 year follow up documented as of this encounter Visit Diagnoses Not on filedocumented in this encounter Care Teams Lead Inspector Relationship Specialty Start Date End Date Cas Galicia MD PCP - General Family Medicine 02/20/14 Sai Perez MD [address] [facility] [place] [address] Primary Staff Physician Cardiology 07/21/21 Rubens Tim DO [address] [place] [address] [place] [address] Referring Regulatory Product Manager 08/05/21 documented as of this encounter
--- OUTSIDE RECORDS SUMMARY | 2024-10-08 08:53 | XMS_ITS | Encounter Summary ---
Author Organization [facility] Address [address] [place] [address] Care Team Providers Care Porcelain Enamel Laborer Name Role Phone Cas Galicia MD Primary Care Provider [phone] Sai Perez MD Unavailable [phone] Rubens Tim DO Unavailable [phone] Source Comments In the event this information is protected by the Federal Confidentiality of Alcohol and Drug AbusePatient Records regulations: The Federal rules restrict any use of the information to criminally investigate or prosecute any alcohol or drug abuse patient.[facility] Encounter Details Date Type Department Care Team (Late st Contact Info) Description 08/02/2021 Get Medical Advice [facility] [place] [employer] [address] [place], [place] [id number] Dayanna Sotomayor, [place] [address] [place], [place] [id number] Genetic testing Social History Tobacco Use Types [...] N ot on file 07/01/2021 Data from: https://www.neighborhoodatlas.medicine.[facility]/. Last address used for calculation [...] Description 09/29/2025 9:15 AM EDT Office Visit [facility] [address] [facility] [address] [place] [address] 1 year follow up 09/29/2025 9:30 AM EDT Visit (SP) Office Hematology/Oncology [address] [address] Shweta Masters APRN.SCHOOL AGE LEAD TEACHER [address] [address] 1 year follow up documented as of this encounter Visit Diagnoses Not on filedocumented in this encounter Care Teams Porcelain Enamel Laborer Relationship Specialty Start Date End Date Cas Galicia MD PCP - General Family Medicine 02/20/14 Sai Perez MD [address] [facility] [place] [address] Primary Staff Physician Cardiology 07/21/21 Rubens Tim DO [address] [place] [address] [place] [address] Referring Supply Chain Engineer 08/05/21 documented as of this encounter
--- OUTSIDE RECORDS SUMMARY | 2024-10-08 08:53 | XMS_ITS | Encounter Summary ---
Author Organization [facility] Address [address] [place] [address] Care Team Providers Care J2Ee Consultant Name Role Phone Cas Galicia MD Primary Care Provider [phone] Sai Perez MD Unavailable Rubens Tim DO Unavailable [phone] Source Comments In the event this information is protected by the Federal Confidentiality of Alcohol and Drug AbusePatient Records regulations: The Federal rules restrict any use of the information to criminally investigate or prosecute any alcohol or drug abuse patient.[facility] Encounter Details Date Type Department Care Team (Late st Contact Info) Description 09/21/2020 Get Medical Advice Neurology [address] [place] [address] [place] [address] [address] [place], [place] [address] RE: Visit Follow Up Question Social History [...] N ot on file 09/06/2020 Data from: https://www.neighborhoodatlas.medicine.[facility]/. Last address used for calculation Not [...] Description 09/29/2025 9:15 AM EDT Office Visit [facility] [address] [place] [address] 1 year follow up 09/29/2025 9:30 AM EDT Visit (SP) Office Hematology/Oncology [address] [place] [address] Shweta Masters APRN.COVER CUTTER [address] [place] [address] 1 year follow up documented as of this encounter Visit Diagnoses Not on filedocumented in this encounter Care Teams J2Ee Consultant Relationship Specialty Start Date End Date Cas Galicia MD PCP - General Family Medicine 02/20/14 Sai Perez MD [address] [place] [address] Primary Staff Physician Cardiology 07/21/21 Rubens Tim DO [address] [place] [address] [place] [address] Referring Deck Hand 08/05/21 documented as of this encounter
--- OUTSIDE RECORDS SUMMARY | 2024-10-08 08:53 | XMS_ITS | Encounter Summary ---
Author Organization [facility] Address [address] [place] [address] Care Team Providers Care Sports Medicine Physician Name Role Phone Cas Galicia MD Primary Care Provider [phone] Cas Galicia MD Primary Care Provider [phone] Cas Galicia MD Unavailable Cas Galicia MD Unavailable Encounter Details Date Type Department Care Team (Late Contact Info) Description 01/25/2023 Orders Only [facility] [address] [place] [address] Cas Galicia MD [address] [place] [address] Social History Tobacco Use Types Packs/Day Years [...] EDT Office Visit [facility] [address] [place] [phone] Rubens Tim DO [address] [place] [address] 07/08/2025 8:20 AM EDT Office Visit [facility] [address] [place] [address] Jodi Holden, PONCE [address] [place] [address] documented as of this encounter Visit Diagnoses Not on filedocumented in this encounter Care Teams Sports Medicine Physician Relationship Specialty Start Date End Date Cas Galicia MD PCP - General Family Medicine 12/06/22 04/08/23 Cas Galicia MD PCP - General Family Medicine 04/09/23 Cas Galicia MD [address] [place] [address] PCP - [employer] 06/06/23 Cas Galicia MD [address] [place] [address] PCP - [employer] 11/06/23 documented as of this encounter
--- OUTSIDE RECORDS SUMMARY | 2024-10-08 08:53 | XMS_ITS | Encounter Summary ---
Author Organization [facility] Address [address] [place] [address] Care Team Providers Care Water Safety Teacher Name Role Phone Cas Galicia MD Primary Care Provider [phone] Cas Galicia MD Unavailable Cas Galicia MD Unavailable Encounter Details Date Type Department Care Team (Late st Contact Info) Description 04/25/2023 Abstract [facility] [address] [place] [address] Cas Galicia MD [address] [place] [address] Social History Tobacco Use Types [...] often do you attend chur ch or gnosticism services? Patient declined 04/08/2023 Do you belong to any clubs o r organizations such as orthodox groups, unions, fraternal or athletic groups, or [...] medical care, and heating? Somewhat hard 04/08/2023 [facility] of Occupat ional Health - Occupational Stress [...] a longterm (including now)? Patient declined 04/08/2023 Comments Unknown [...] EDT Office Visit [facility] [address] [facility] [place] [address] Rubens Tim DO [address] [place] [address] 07/08/2025 8:20 AM EDT Office Visit [facility] [address] [place] [address] Jodi Holden, PONCE [address] [place] [address] documented as of this encounter Visit Diagnoses Not on filedocumented in this encounter Care Teams Water Safety Teacher Relationship Specialty Start Date End Date Cas Galicia MD PCP - General Family Medicine 04/09/23 Cas Galicia MD [address] [place] [address] PCP - [place] [employer] 06/06/23 Cas Galicia MD [address] [place] [address] PCP - [place] [employer] 11/06/23 documented as of this encounter
--- OUTSIDE RECORDS SUMMARY | 2024-10-08 08:53 | XMS_ITS | Encounter Summary ---
Author Organization [facility] Address [address] [place] [address] Care Team Providers Care Retoucher Photoengraving Name Role Phone Cas Galicia MD Primary Care Provider [phone] Encounter Details Date Type Department Care Team (Late st Contact Info) Description 09/29/2024 Orders Only [facility] [address] [place] [address] Cas Galicia MD [address] [place] [address] Social History Tobacco Use Types Packs/Day Years [...] attend chur or latter-day services? Patient declined 08/08/2024 Do you belong to any clubs o r organizations such as presybeterian groups, unions, fraternal or athletic groups, or [...] medical care, and heating? Somewhat hard 08/08/2024 [facility] of Occupat ional Health - Occupational Stress [...] care home (including now)? Patient declined 04/08/2023 Housing [...] any time in the past 12 m [facility], were you homeless or living in a care home (including now)? No 08/08/2024 Comments No [...] Visit [facility] [address] [facility] [place] [address] Rubens Tim DO [address] [facility] [place] [address] 07/08/2025 8:20 AM EDT Office Visit [facility] [address] [facility] [place] [address] Jodi Holden, PA [address] [place] [address] documented as of this encounter Procedures Procedure Name Priority Date/Time Associated Diagnosis Comments XR FOREARM 2 VIEWS RIGHT Routine 09/29/2024 2:01 PM EDT XR WRIST 2 VIEWS RIGHT Routine 09/29/2024 2:00 PM EDT XR ELBOW 3+ VIEWS RIGHT Routine 09/29/2024 1:59 PM EDT documented in this encounter Results * XR forearm 2 views right (09/29/2024 2:01 PM EDT) Anatomical Region Laterality Modality Upper Extremities, Forearm Right Radio graphic Imaging us Cas Galicia MD IMG XR PROCEDURES Final Result * XR WRIST 2 VIEWS RIGHT (09/29/2024 2:00 PM EDT) Anatomical Region Laterality Modality Radiographic Naina ging us Cas Galicia MD IMG XR PROCEDURES Final Result * XR elbow 3+ views right (09/29/2024 1:59 PM EDT) Anatomical Region Laterality Modality Upper Extremities, Elbow Right Radiogr aphic Imaging us Cas Galicia MD IMFrancisca XR PROCEDURES Final Result documented in this encounter Visit Diagnoses Not on filedocumented in this encounter Care Teams Retoucher Photoengraving Relationship Specialty Start Date End Date Cas Galicia MD PCP - General Family Medicine 04/09/23 documented as of this encounter
--- OUTSIDE RECORDS SUMMARY | 2024-10-08 08:53 | XMS_ITS | Encounter Summary ---
Author Organization [facility] Address [address] [place] [address] Care Team Providers Care Pallet Rectifier Name Role Phone Cas Galicia MD Primary Care Provider [phone] Sai Perez MD Unavailable [phone] Rubens Tim DO Unavailable Source Comments [...] Description 08/18/2021 Get Medical Advice Neurology [address] [id number] Bhargavi Ramesh PA-C [address] [place] [address] Emgality Social History Tobacco Use [...] N ot on file 08/15/2021 Data from: https://www.neighborhoodatlas.medicine.[facility]/. Last address used for [...] Description 09/29/2025 9:15 AM EDT Office Visit [facility] [address] [facility] [place] [address] 1 year follow up 09/29/2025 9:30 AM EDT Visit (SP) Office Hematology/Oncology [address] [facility] [place] [address] Shweta Masters APRN.RESPIRATORY SUPERVISOR [address] [facility] [place] [address] 1 year follow up documented as of this encounter Visit Diagnoses Not on filedocumented in this encounter Care Teams Pallet Rectifier Relationship Specialty Start Date End Date Cas Galicia MD PCP - General Family Medicine 02/20/14 Sai Perez MD [address] [facility] [place] [address] Primary Staff Physician Cardiology 07/21/21 Rubens Tim DO [address] [place] [address] [place] [address] Referring Form Setter Steel Pan Forms 08/05/21 documented as of this encounter
--- OUTSIDE RECORDS SUMMARY | 2024-10-08 08:53 | XMS_ITS | Encounter Summary ---
Author Organization [facility] Address [address] [place] [address] Care Team Providers Care Bone Worker Name Role Phone Cas Galicia MD Primary Care Provider [phone] Cas Galicia MD Primary Care Provider [phone] Cas Galicia MD Unavailable Cas Galicia MD Unavailable Encounter Details Date Type Department Care Team (Late st Contact Info) Description 07/06/2022 Abstract [facility] [address] [place] [phone] Jodi Holden PA [address] [facility] [address] [place] [address] Social History Tobacco Use Types [...] EDT Office Visit [facility] [address] [place] [phone] Rubens Tim DO [address] [place] [address] 07/08/2025 8:20 AM EDT Office Visit [facility] [address] [place] [address] Jodi Holden, PA [address] [place] [address] [place] [address] documented as of this encounter Visit Diagnoses Not on filedocumented in this encounter Care Teams Bone Worker Relationship Specialty Start Date End Date Cas Galicia MD PCP - General Family Medicine 12/06/22 04/08/23 Cas Galicia MD PCP - General Family Medicine 04/09/23 Cas Galicia MD [address] [place] [address] PCP - [place] [employer] 06/06/23 Cas Galicia MD [address] [place] [address] PCP - [employer] [employer] 11/06/23 documented as of this encounter
--- OUTSIDE RECORDS SUMMARY | 2024-10-08 08:53 | XMS_ITS | Encounter Summary ---
Author Organization [facility] Address [address] [place] [address] Care Team Providers Care Psych Rn Name Role Phone Cas Galicia MD Primary Care Provider [phone] Encounter Details Date Type Department Care Team (Late st Contact Info) Description 09/24/2024 Orders Only [facility] [address] [place] [address] Halima Morris MD [address] [place] [address] Social History Tobacco Use Types [...] on filedocumented in this encounter Care Teams Psych Rn Relationship Specialty Start Date End Date Cas Galicia MD [address] [place] [address] PCP - General 02/17/22 documented as of this encounter
--- OUTSIDE RECORDS SUMMARY | 2024-10-08 08:53 | XMS_ITS | Clinical Summary ---
Author Organization [facility] tem Address [facility][id number] [address] [place] [address] Care Team Providers Care Interlocking Tower Operator Name Role Phone Cas Galicia MD Primary Care Provider [phone] Allergies Active Allergy Reactions Criticality Noted Date [...] Type Department Care Team Description 09/22/20[facility] Department of [place] [id number] [facility] [address] [place] [address] Alina Garcia CMA 09/15/2024 [facility], A Department of [address] [place] [address] Stella Flowers, HIGH CLIMBER-HAT BLOCK MAKER Migraine without aura and without status migrainosus, not intractable 08/11/2024 Refill [facility], A Department of [facility] [address] [facility] [address] [place] [address] Setlla Flowers, HIGH CLIMBER-HAT BLOCK MAKER Migraine without aura and without status migrainosus, not intractable from Last 3 Months Family History Medical [...] Description 11/24/2024 10:00 AM EDT Office Visit [facility] Adult Endocrinology, A Department of [facility] [address] [address] Akila Ballard MD [address] [address] 12/26/2024 10:30 AM EST Office Visit [facility] Neurology, A Department of [facility] [address] [address] Stella Flowers, LIO-HAT BLOCK MAKER [address] [address] Health Maintenance Due Date Last Done Comments Adult BMI Follow Up Plan 12/20/2001 DTaP,Tdap and Td Vaccines (1 - Tdap) 12/20/2002 Depression Screening 01/05/2024 01/04/2023 Influenza Vaccine 10/06/2024 11/20/2019, , 10/27/2019 Adult BMI Screening 01/01/2025 01/02/2024 Tobacco Screening 01/01/2025 01/02/2024 Pap Smear Discontinued 03/17/2013 Medical Devices Not on file Insurance ANTHEM Member Subscriber Plan / Payer (Ef fective 2022-Present) Name:Vijaya Del Angel Member ID:[id number] Relation to Subscriber:Self Name:Vijaya Del Angel Subscriber ID:[id number] Payer ID:[id number] (NAIC) Type:Not on file Address: [address] [place] [id number] ANTHEM Care Teams Interlocking Tower Operator Relationship Specialty Start Date End Date Cas Galicia MD PCP - General Family Medicine 11/18/20
--- OUTSIDE RECORDS SUMMARY | 2024-10-08 08:54 | XMS_ITS | Encounter Summary ---
Author Organization [facility] tem Address [id number] [address] [place] [address] Care Team Providers Care Subway Train Driver Name Role Phone Cas Galicia MD Primary Care Provider [phone] Encounter Details Date Type Department Care Team (Late st Contact Info) Description 10/23/2022 Orders Only [facility] [address] [place] [address] Sierra Brody CNA Acquired hypothyroidism; Hypothyroidism, unspecified [...] [facility] Adult Endocrinology, A Department of [facility] [address] [address] Akila Blalard MD [address] [address] 12/26/2024 10:30 AM EST Office Visit [facility] Neurology, A Department of [facility] [address] [address] Stella Flowers COSMETOLOGIST-PACKAGING ASSOCIATE [address] [address] documented as of this encounter Procedures Procedure Name Priority Date/Time Associated Diagnosis Comments T3, FREE Routine 10/06/2022 Acquired hypothyroidism TSH Routine 10/06/2022 Hypothyroidism, unspecified type documented in this encounter Results * TSH (10/06/2022) External Tsh 4.255 SUNQUEST 10/06/2022 us Akila Ballard MD LAB BLOOD ORDERABLES Final Result SUNQUEST * T3, free (10/06/2022) 10/06/2022 us Sarah Maradiaga COSMETOLOGIST-PACKAGING ASSOCIATE LAB BLOOD ORDERABLES Final Result Performing Organization Address City/[facility]/ZIP Co de Phone Number SUNQUEST documented in this encounter Visit Diagnoses Diagnosis Acquired hypothyroidism Unspecified hypothyroidism Hypothyroidism, unspecified type documented in this encounter Additional Health Concerns Assessment Noted Time PHQ-9 Depression Total Score: 0 06/30/19 23 1:10 PM EDT documented as of this encounter Care Teams Subway Train Driver Relationship Specialty Start Date End Date Cas Galicia MD PCP - General Family Medicine 11/18/20 documented as of this encounter
--- OUTSIDE RECORDS SUMMARY | 2024-10-08 08:54 | XMS_ITS | Encounter Summary ---
Author Organization [facility] Sys tem Address [id number] [address] [place] [address] Care Team Providers Care Nurse Emergency Room Name Role Phone Cas Galicia MD Primary Care Provider [phone] Reason for Visit * Reason Onset Date Comments Med Refill 03/12/2024 Encounter Details Date Type Department Care Team (Late st Contact Info) Description 03/12/2024 Refill [facility] [address] [place] [address] Alina Garcia CMA Social History [...] Description 11/24/2024 10:00 AM EDT Office Visit [facility] Adult Endocrinology, A Department of [facility] [address] [address] Akila Ballard MD [address] [address] 12/26/2024 10:30 AM EST Office Visit [facility] Neurology, A Department of [facility] [address] [address] Stella Flowers, SCOOP FILLER-MARKETING [employer] [address] [address] documented as of this encounter Visit Diagnoses Not on filedocumented in this encounter Additional Health Concerns Assessment Noted Time PHQ-9 Depression Total Score: 0 01/05/20 23 3:26 PM EST documented as of this encounter Care Teams Nurse Emergency Room Relationship Specialty Start Date End Date Cas Galicia MD PCP - General Family Medicine 11/18/20 documented as of this encounter
--- OUTSIDE RECORDS SUMMARY | 2024-10-08 08:54 | XMS_ITS | Encounter Summary ---
Author Organization [facility] Sys tem Address [id number] [address] [place] [address] Care Team Providers Care Maitre D Name Role Phone Cas Galicia MD Primary Care Provider [phone] Encounter Details Date Type Department Care Team (Late st Contact Info) Description 04/11/2022 Orders Only [facility] [address] [place] [address] External, Scanning Provider Social History Tobacco Use [...] Description 11/24/2024 10:00 AM EDT Office Visit [facility] Adult Endocrinology, A Department of [facility] [address] [address] Akila Ballard MD [address] [address] 12/26/2024 10:30 AM EST Office Visit [facility] Neurology, A Department of [facility] [address] [address] Stella Flowers APRN-ENGINEERING INSPECTION ASSISTANT [address] [address] documented as of this encounter [...] documented as of this encounter Care Teams Maitre D Relationship Specialty Start Date End Date Cas Galicia MD PCP - General Family Medicine 11/18/20 documented as of this encounter
--- OUTSIDE RECORDS SUMMARY | 2024-10-08 08:54 | XMS_ITS | Encounter Summary ---
Author Organization [facility] Address [address] [place] [address] Care Team Providers Care Gum Scoring Machine Operator Name Role Phone Cas Galicia MD Primary Care Provider [phone] Sai Perez MD Unavailable [phone] Rubens Tim DO Unavailable [phone] Source Comments In the event this information is protected by the Federal Confidentiality of Alcohol and Drug AbusePatient Records regulations: The Federal rules restrict any use of the information to criminally investigate or prosecute any alcohol or drug abuse patient.[facility] Encounter Details Date Type Department Care Team (Late st Contact Info) Description 09/01/2021 [facility] [address] [place] [address] Provider, [facility] Referral Social [...] on file 08/15/2021 Data from: https://www.neighborhoodatlas.medicine.[facility]/. Last address used for calculation [...] AM EDT Office Visit [facility] [address] [place] [address] [place] [address] 1 year follow up 09/29/2025 9:30 AM EDT Visit (SP) Office Hematology/Oncology [address] [place] [address] [place] [address] Shweta Masters APRN.[address] [place] [address] 1 year follow up documented as of this encounter Visit Diagnoses Not on filedocumented in this encounter Care Teams Gum Scoring Machine Operator Relationship Specialty Start Date End Date Cas Galicia MD PCP - General Family Medicine 02/20/14 Sai Perez MD [address] [facility] [place] [address] Primary Staff Physician Cardiology 07/21/21 Rubens Tim DO [address] [place] [address] [place] [address] Referring Container Shop Welder 08/05/21 documented as of this encounter
--- OUTSIDE RECORDS SUMMARY | 2024-10-08 08:54 | XMS_ITS | Encounter Summary ---
Author Organization [facility] Address [address] [facility] [place] [address] Care Team Providers Care Electrical Helper Name Role Phone Cas Galicia MD Primary Care Provider + Encounter Details Date Type Department Care Team (Late st Contact Info) Description 09/18/2024 Abstract [facility] PUL Part of [address] [address] Nabor Yancey, OPTOMETRIC TECH - POULTRY RAISER [address] [place] [address] Social History Tobacco Use Types Packs/Day Years [...] Upcoming Encounters Date Type Department Care Team ([facility] st Contact Info) Description 03/19/2025 9:45 AM EST Office Visit [facility] PUL Part of [address] [address] David Mcclure MD [address] [address] [place]; 6 mth follow up with Saumel Vega documented as of this encounter Visit Diagnoses Not on filedocumented in this encounter Care Teams Electrical Helper Relationship Specialty Start Date End Date Cas Galicia MD PCP - General 09/04/11 documented as of this encounter
--- OUTSIDE RECORDS SUMMARY | 2024-10-08 08:54 | XMS_ITS | Encounter Summary ---
Author Organization [facility] tem Address [id number] [address] [place] [address] Care Team Providers Care Wireless Consultant Name Role Phone Cas Galicia MD Primary Care Provider [phone] Encounter Details Date Type Department Care Team (Late st Contact Info) Description 12/05/2023 Orders Only [facility] [address] [phone] Akila Ballard MD [address] 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 [address] 12/26/2024 10:30 AM EST Office Visit [facility] Neurology, A Department of [facility] [address] [facility] [employer] [address] [address] Stella Flowers, ACUTE CARE OCCUPATIONAL THERAPIST-ACCESS COORDINATOR [address] [facility] [employer] [address] [address] documented as of this encounter Procedures Procedure [...] documented as of this encounter Care Teams Wireless Consultant Relationship Specialty Start Date End Date Cas Galicia MD PCP - General Family Medicine 11/18/20 documented as of this encounter
--- OUTSIDE RECORDS SUMMARY | 2024-10-08 08:54 | XMS_ITS | Encounter Summary ---
Author Organization [facility] tem Address [id number] [address] [place] [address] Care Team Providers Care Linux Network Engineer Name Role Phone Cas Galicia MD Primary Care Provider [phone] Reason for Visit * Reason Onset Date Comments Med Refill 09/22/2024 Encounter Details Date Type Department Care Team (Late st Contact Info) Description 09/22/2024 Refill [facility], A Department of [facility] [address] [employer] [address] [address] Alina Garcia CMA Social History [...] Description 11/24/2024 10:00 AM EDT Office Visit [facility] Adult Endocrinology, A Department of [facility] [address] [address] Akila Ballard MD [address] [address] 12/26/2024 10:30 AM EST Office Visit [facility] Neurology, A Department of [facility] [address] [address] Stella Flowers, LIO-COMBINE DRIVER [address] [address] documented as of this encounter Visit Diagnoses Not on filedocumented in this encounter Additional Health Concerns Assessment Noted Time PHQ-9 Depression Total Score: 0 01/05/20 23 3:26 PM EST documented as of this encounter Care Teams Linux Network Engineer Relationship Specialty Start Date End Date Cas Galicia MD PCP - General Family Medicine 11/18/20 documented as of this encounter
--- OUTSIDE RECORDS SUMMARY | 2024-10-08 08:54 | XMS_ITS | Encounter Summary ---
Author Organization [facility] Address [address] [place] [address] Care Team Providers Care Online 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 Manager Name Role Phone Cas Galicia MD Primary Care Provider [phone] Sai Perez MD Unavailable [phone] Rubens Tim DO Unavailable [phone] Source Comments In the event this information is protected by the Federal Confidentiality of Alcohol and Drug AbusePatient Records regulations: The Federal rules restrict any use of the information to criminally investigate or prosecute any alcohol or drug abuse patient.[facility] Encounter Details Date Type Department Care Team (Late st Contact Info) Description 10/17/2021 Get Medical Advice Pulmonary Medicine [address] [id number] TimoteoLanden APRN.[facility] [address] [place] [address] Symptoms Social History Tobacco Use Types [...] on file 08/15/2021 Data from: https://www.neighborhoodatlas.medicine.[facility]/. Last address used for calculation [...] EDT Office Visit [facility] [address] [place] [address] 1 year follow up 09/29/2025 9:30 AM EDT Visit (SP) Office Hematology/Oncology [address] [facility] [place] [address] Shweta Masters APRN.WELDING PRODUCTION SUPERVISOR [address] [place] [address] 1 year follow up documented as of this encounter Visit Diagnoses Diagnosis Hot flashes- Primary Symptomatic menopausal or female climacteric states Post-acute sequelae of COVID-19 (PASC) Flushing Chills (without fever) Dusky discoloration of skin Temperature intolerance Other general symptoms documented in this encounter Care Teams Online 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 Manager Relationship Specialty Start Date End Date Cas Galicia MD PCP - General Family Medicine 02/20/14 Sai Perez MD [address] [facility] [place] [address] Primary Staff Physician Cardiology 07/21/21 Rubens Tim DO [address] [place] [address] [place] [address] Referring Customs Guard 08/05/21 documented as of this encounter
--- OUTSIDE RECORDS SUMMARY | 2024-10-08 08:54 | XMS_ITS | Encounter Summary ---
Author Organization [facility] Address [id number] [address] [place] [address] Care Team Providers Care Floor Molder Name Role Phone Cas Galicia MD Primary Care Provider Reason for Referral * Diagnostic Imaging (Routine) - Closed Specialty Diagnoses / Procedures Referred By Contac steven Referred To Contact Radiology Diagnoses Pain Procedures CT neck soft tissue without contrast [facility] [address] [place] [phone] Phone: tel: fax: Referral ID Status Reason Start Date Expiration Date Visits Re quested Visits Authorized [id number] Closed 05/22/2022 05/22/2023 1 1 Encounter Details Date Type Department Care Team (Late st Contact Info) Description 05/22/2022 Orders Only [facility] [address] [place] [phone] Transcribe, Orders Support User Pain (Primary [...] Description 11/24/2024 10:00 AM EDT Office Visit [facility] Adult Endocrinology, A Department of [facility] [address] [address] Akila Ballard MD [address] [address] 12/26/2024 10:30 AM EST Office Visit [facility] Neurology, A Department of [facility] [address] [address] Stella Flowers, HORSES OR MULES TEAMSTER-MARKETING AUTOMATION MANAGER [address] [address] documented as of this [...] documented as of this encounter Care Teams Floor Molder Relationship Specialty Start Date End Date Cas Galicia MD PCP - General Family Medicine 11/18/20 documented as of this encounter
--- OUTSIDE RECORDS SUMMARY | 2024-10-08 08:54 | XMS_ITS | Encounter Summary ---
Author Organization [facility] Address [address] [place] [address] Care Team Providers Care Mobile Pet Groomer Name Role Phone Cas Galicia MD Primary Care Provider [phone] Sai Perez MD Unavailable [phone] Rubens Tim DO Unavailable [phone] Source Comments In the event this information is protected by the Federal Confidentiality of Alcohol and Drug AbusePatient Records regulations: The Federal rules restrict any use of the information to criminally investigate or prosecute any alcohol or drug abuse patient.[facility] Encounter Details Date Type Department Care Team (Late st Contact Info) Description 11/07/2021 Get Medical Advice Neurology [address] [id number] Bhargavi Ramesh PA-C [address] [place] [address] [facility] Social History Tobacco Use Types Packs/Day [...] ot on file 08/15/2021 Data from: https://www.neighborhoodatlas.medicine.[facility].edu/. Last address used for calculation 6060 [...] Description 09/29/2025 9:15 AM EDT Office Visit [facility] [address] [place] [address] 1 year follow up 09/29/2025 9:30 AM EDT Visit (SP) Office Hematology/Oncology [address] [place] [address] Shweta Masters APRN.GRAPPLE YARDER OPERATOR [address] [facility] [facility] [place] [address] 1 year follow up documented as of this encounter Visit Diagnoses Not on filedocumented in this encounter Care Teams Mobile Pet Groomer Relationship Specialty Start Date End Date Cas Galicia MD PCP - General Family Medicine 02/20/14 Sai Perez MD [address] [place] [address] Primary Staff Physician Cardiology 07/21/21 Rubens Tim DO [address] [place] [address] [place] [address] Referring Entry Engineer 08/05/21 documented as of this encounter
--- OUTSIDE RECORDS SUMMARY | 2024-10-08 08:54 | XMS_ITS | Encounter Summary ---
Author Organization [facility] Address [id number] [address] [place] [address] Care Team Providers Care Professor Of Fine Art Name Role Phone Cas Galicia MD Primary Care Provider Encounter Details Date Type Department Care Team (Late st Contact Info) Description 10/23/2022 Orders Only [facility] [address] [place] [phone] External, Scanning Provider Social History Tobacco Use [...] 11/24/2024 10:00 AM EDT Office Visit [facility] Adult Endocrinology, A Department of [facility] [address] [address] Akila Ballard MD [address] [address] 12/26/2024 10:30 AM EST Office Visit [facility] Neurology, A Department of [facility] [address] [address] Stella Flowers APRNADAMS-[facility] [address] [address] documented as of this encounter Visit Diagnoses Not on filedocumented in this encounter Additional Health Concerns Assessment Noted Time PHQ-9 Depression Total Score: 0 06/30/19 23 1:10 PM EDT documented as of this encounter Care Teams Professor Of Fine Art Relationship Specialty Start Date End Date Cas Galicia MD PCP - General Family Medicine 11/18/20 documented as of this encounter
--- OUTSIDE RECORDS SUMMARY | 2024-10-08 08:54 | XMS_ITS | Encounter Summary ---
Author Organization [facility] Address [address] [facility], [address] [place] [address] Care Team Providers Care Tax Manager Cpa Name Role Phone Cas Galicia MD Primary Care Provider + Encounter Details Date Type Department Care Team (Late st Contact Info) Description 09/16/2024 Orders Only [facility] Part of [place] [phone] Loraine Ponce MA Moderate persistent asthma without [...] Description 03/19/2025 9:45 AM EST Office Visit [facility] Part of [address] [address] David Mcclure MD [address] [address] [place]; 6 mth follow up with Samuel Vega documented as of this encounter Visit Diagnoses Diagnosis Moderate persistent asthma without complication Unspecified asthma documented in this encounter Care Teams Tax Manager Cpa Relationship Specialty Start Date End Date Cas Galicia MD PCP - General 09/04/11 documented as of this encounter
--- OUTSIDE RECORDS SUMMARY | 2024-10-08 08:54 | XMS_ITS | Encounter Summary ---
Author Organization [facility] Address [id number] [address] [place] [address] Care Team Providers Care Slip Filler Name Role Phone Cas Galicia MD Primary Care Provider [phone] Encounter Details Date Type Department Care Team (Late Contact Info) Description 06/07/2022 Orders Only [facility] [address] [address] Ref Prov, [place] [address] Social History Tobacco Use Types Packs/Day Years [...] Visit [facility], A Department of [facility] [address] [address] Akila Ballard MD [address] [address] 12/26/2024 10:30 AM EST Office Visit [facility], A Department of [facility] [address] [address] Stella Flowers, ASSISTANT RESTAURANT GENERAL MANAGER-[facility] [address] [address] documented as of this encounter Visit Diagnoses Not on filedocumented in this encounter Additional Health Concerns Assessment Noted Time PHQ-9 Depression Total Score: 0 10/06/19 22 10:43 AM EDT documented as of this encounter Care Teams Slip Filler Relationship Specialty Start Date End Date Cas Galicia MD PCP - General Family Medicine 11/18/20 documented as of this encounter
--- OUTSIDE RECORDS SUMMARY | 2024-10-08 08:54 | XMS_ITS | Encounter Summary ---
Author Organization [facility] Address [id number] [address] [place] [address] Care Team Providers Care Electrician Supervisor Airplane Name Role Phone Cas Galicia MD Primary Care Provider [phone] Reason for Visit * Reason Onset Date Comments Med Refill 03/12/2024 Encounter Details Date Type Department Care Team (Late st Contact Info) Description 03/12/2024 Refill [facility] [address] [place] [address] Alina Garcia CMA Social History [...] [facility] Department of [facility] [address] [address] Akila Ballard MD [address] [address] 12/26/2024 10:30 AM EST Office Visit [facility] Neurology, A Department of [facility] [address] [address] Stella Flowers, MIXER DRY FOOD PRODUCTS-ASSISTANT FACILITY MANAGER [address] [address] documented as of this encounter Visit Diagnoses Not on filedocumented in this encounter Additional Health Concerns Assessment Noted Time PHQ-9 Depression Total Score: 0 01/05/20 23 3:26 PM EST documented as of this encounter Care Teams Electrician Supervisor Airplane Relationship Specialty Start Date End Date Cas Galicia MD PCP - General Family Medicine 11/18/20 documented as of this encounter
--- OUTSIDE RECORDS SUMMARY | 2024-10-08 08:54 | XMS_ITS | Encounter Summary ---
Author Organization [facility] Address [address] [place] [address] Care Team Providers Care Glost Tile Shader Name Role Phone Cas Galicia MD Primary Care Provider [phone] Sai Perez MD Unavailable [phone] Rubens Tim DO Unavailable [phone] Source Comments In the event this information is protected by the Federal Confidentiality of Alcohol and Drug AbusePatient Records regulations: The Federal rules restrict any use of the information to criminally investigate or prosecute any alcohol or drug abuse patient.[facility] Encounter Details Date Type Department Care Team (Late st Contact Info) Description 10/17/2021 Get Medical Advice [facility] Equivalent DATA [address] [place], [place] [phone] Dayanna Sotomayor, [place] [address] [place] [address] Genetic testing Social History Tobacco [...] on file 08/15/2021 Data from: https://www.neighborhoodatlas.medicine.[facility]/. Last address used for calculation [...] Office Visit [facility] [address] [facility] [place] [address] 1 year follow up 09/29/2025 9:30 AM EDT Visit (SP) Office Hematology/Oncology [address] [facility] [place] [address] Shweta Masters APRN.BRUSH HAND [address] [facility] [place] [address] 1 year follow up documented as of this encounter Visit Diagnoses Not on filedocumented in this encounter Care Teams Glost Tile Shader Relationship Specialty Start Date End Date Cas Galicia MD PCP - General Family Medicine 02/20/14 Sai Perez MD [address] [facility] [place] [address] Primary Staff Physician Cardiology 07/21/21 Rubens Tim DO [address] [place] [address] [place] [address] Referring Fruit Shipper 08/05/21 documented as of this encounter
--- OUTSIDE RECORDS SUMMARY | 2024-10-08 08:54 | XMS_ITS | Encounter Summary ---
Author Organization [facility] Address [address] [facility] [place] [address] Care Team Providers Care Mine Exploration Engineer Name Role Phone Cas Galicia MD Primary Care Provider + Encounter Details Date Type Department Care Team (Late st Contact Info) Description 09/16/2024 Abstract [facility] Part of [place] [id number] David Mcclure MD [facility] [place] [address] Social History Tobacco Use Types Packs/Day Years [...] Upcoming Encounters Date Type Department Care Team ([facility] st Contact Info) Description 03/19/2025 9:45 AM EST Office Visit [facility] Part of [facility] [address] [place] [address] David Mcclure MD [address] [address] [place]; 6 mth follow up with Samuel Vega documented as of this encounter Visit Diagnoses Not on filedocumented in this encounter Care Teams Mine Exploration Engineer Relationship Specialty Start Date End Date Csa Galicia MD PCP - General 09/04/11 documented as of this encounter
--- OUTSIDE RECORDS SUMMARY | 2024-10-08 08:54 | XMS_ITS | Encounter Summary ---
Author Organization [facility] Address [address] [place] [address] Care Team Providers Care Scrap Hooker Name Role Phone Cas Galicia MD Primary Care Provider Sai Perez MD Unavailable [phone] Rubens Tim DO Unavailable [phone] Source Comments In the event this information is protected by the Federal Confidentiality of Alcohol and Drug AbusePatient Records regulations: The Federal rules restrict any use of the information to criminally investigate or prosecute any alcohol or drug abuse patient.[facility] Encounter Details Date Type Department Care Team (Late st Contact Info) Description 08/31/2021 [facility] [address] [place] [address] Provider, [facility] Referral to Wellness [...] N ot on file 08/15/2021 Data from: https://www.neighborhoodatlas.medicine.[facility]/. Last address used for calculation 6060 [...] Description 09/29/2025 9:15 AM EDT Office Visit [facility] [address] [place] [address] [place] [address] 1 year follow up 09/29/2025 9:30 AM EDT Visit (SP) Office Hematology/Oncology [address] [place] [address] [place] [address] Shweta Masters APRN.[address] [place] [address] 1 year follow up documented as of this encounter Visit Diagnoses Not on filedocumented in this encounter Care Teams Scrap Hooker Relationship Specialty Start Date End Date Cas Galicia MD PCP - General Family Medicine 02/20/14 Sai Perez MD [address] [facility] [place] [address] Primary Staff Physician Cardiology 07/21/21 Rubens Tim DO [address] [place] [address] [place] [address] Referring Tower Director 08/05/21 documented as of this encounter
--- OUTSIDE RECORDS SUMMARY | 2024-10-08 08:54 | XMS_ITS | Clinical Summary ---
Author Organization [facility] Address [address] [place] [address] Phone Care Team Providers Care Wildfire Prevention Specialist Name Role Phone Cas Galicia MD Primary Care Provider + Social History Tobacco Use Types Packs/Day Years Used Date Smoking Tobacco: Never Assessed Comments Unknown Sex and Gender Information Value Date Recorded Sex Assigned at Not on file Legal Sex Female 4:23 PM EST Gender Identity Not on file Sexual Orientation Not on file Plan of Treatment Not on file Care Teams Wildfire Prevention Specialist Relationship Specialty Start Date End Date Cas Galicia MD PCP - General 05/11/15
--- OUTSIDE RECORDS SUMMARY | 2024-10-08 08:54 | XMS_ITS | Encounter Summary ---
Author Organization [facility] Address [address] [place] [address] Care Team Providers Care Snagger Name Role Phone Cas Galicia MD Primary Care Provider [phone] Encounter Details Date Type Department Care Team (Late st Contact Info) Description 08/07/2024 Orders Only [facility] Cardiology Clinic [address] [place] [address] Halima Morris MD [address] [place] [address] Social History Tobacco Use Types [...] on filedocumented in this encounter Care Teams Snagger Relationship Specialty Start Date End Date Cas Galicia MD [address] [place] [address] PCP - General 02/17/22 documented as of this encounter
--- OUTSIDE RECORDS SUMMARY | 2024-10-08 08:54 | XMS_ITS | Encounter Summary ---
Author Organization [facility] Address [id number] [address] [place] [address] Care Team Providers Care Evs Attendant Name Role Phone Cas Galicia MD Primary Care Provider [phone] Encounter Details Date Type Department Care Team (Late st Contact Info) Description 04/25/2022 Orders Only [facility] [address] [place] [phone] Moon Flores, GROUNDMAN Acquired hypothyroidism Social History Tobacco Use Types [...] Description 11/24/2024 10:00 AM EDT Office Visit [facility] Adult Endocrinology, A Department of [facility] [address] [address] Akila Ballard MD [address] [address] 12/26/2024 10:30 AM EST Office Visit [facility] Neurology, A Department of [facility] [address] [facility] [employer] [address] [address] Stella Flowers APRN-MACY [address] [address] documented as of this encounter Procedures Procedure Name Priority Date/Time Associated Diagnosis Comments THYROID PROFILE INCLUDES TSH FT4 Routine 04/09/2022 Acquired hypothyroidism T3, FREE Routine 04/09/2022 Acquired hypothyroidism documented in this encounter Results * T3, free (04/09/2022) External T3 Free 1.29 0.80 - 1.90 SUNQUEST 04/09/2022 Sarah Maradiaga APRN-PRINTER SLOTTER FEEDER LAB BLOOD ORDERABLES Final Result Performing Organization Address [facility]/ZIP Co de Phone Number SUNQUEST * Thyroid profile includes TSH FT4 (04/09/2022) 04/09/2022 Sarah Maradiaga CHILD CARE SUPERVISOR-PRINTER SLOTTER FEEDER LAB BLOOD ORDERABLES Final Result Performing Organization Address [facility]/ZIP Co de Phone Number SUNQUEST documented in this encounter Visit Diagnoses Diagnosis Acquired hypothyroidism Unspecified hypothyroidism documented in this encounter Additional Health Concerns Assessment Noted Time PHQ-9 Depression Total Score: 0 10/06/19 22 10:43 AM EDT documented as of this encounter Care Teams Evs Attendant Relationship Specialty Start Date End Date Cas Galicia MD PCP - General Family Medicine 11/18/20 documented as of this encounter
--- OUTSIDE RECORDS SUMMARY | 2024-10-08 08:54 | XMS_ITS | Clinical Summary ---
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 03/02/2021 Cervicalgia 03/02/2021 01/01/2023 Brain fog [...] Description 09/25/2024 11:10 AM EDT Ancillary Procedure [facility] Cardiology Clinic [address] [place] [address] Awareness of heartbeats 09/24/2024 Orders Only [facility] Cardiology Clinic [address] [place] [address] Halima Morris MD 08/25/2024 11:55 AM EDT Ancillary Procedure [facility] Clinic [address] [place] [address] Awareness of heartbeats 08/25/2024 Orders Only [facility]iology Clinic [address] [place] [address] Jorge Montana MD 08/13/2024 Telephone [facility] [address] [place] [address] Annalee Payne MA 08/12/2024 3:30 PM EDT Telemedicine [facility] [address] [place] [address] Macrina Wadsworth CNP Edema, unspecified type (Primary Dx); Orthostatic intolerance; Syncope and collapse; Implantable loop recorder present; Palpitations with regular cardiac rhythm 08/07/2024 Orders Only [facility] Clinic [address] [place] [address] Halima Morris MD 07/29/2024 11:05 PM EDT Ancillary Procedure [facility] [address] [place] [address] Awareness of heartbeats 07/09/2024 Orders Only [facility] [address] [place] [phone] Halima Morris MD from Last 3 Months [...] Kidney disease Mother Maira Skin cancer Mother Maira Stroke Mother Maira pituitary tumor Mother Maira [...] exercise at this level? 30 min 07/21/2022 [place] Safety & Environment Answer Date Rec orded [...] this topic Medical Devices Implanted Type Area Visual And Stock Associate Device Identifier Shelf Expiration Date Model / Serial / Lot Monitor,Cardiac,B iomonitor Iii - [id number] - [id number] Implanted:Qty: 1 on 06/27/2022 by Stephon Cronin MD at [facility] Lead [employer] 10/06/2023 [id number] / [id number] / Procedures Procedure Name Priority Date/Time Associated [...] Jorge Montana MD CV IMPLANTABLE CARDIAC DEVICE AL OCEDURES Final Result CPACS * Cardiac device check - Remote loop recorder (ILR) (09/24/2024 12:00 AM EDT) Only the most recent of4 resultswithin the time period is included. Anatomical Region Laterality Modality Other 09/24/2024 us Halima Morris MD CV IMPLANTABLE CARDIAC DEVICE PROCEDURES Final Result from Last 3 Months Insurance [facility] Member Subscriber Plan / Payer (Ef fective 2022-Present) Name:Vijaya Tran Member ID:[id number] Relation to Subscriber:Self Name:Vijaya Tran Subscriber ID:[id number] Payer ID:[id number] (NAIC) Type:Not on file Address: [facility] [id number] [address] Member Subscriber Plan / Payer (Ef fective 2024-Present) Name:Vijaya Tran Relation to Subscriber:Spouse Name:VINNY TRAN Date of :1984 (Home) Address: [address] [address] Payer ID:[id number] (NAIC) Type:Not on file Address: [facility] [id number] [place] [id number] Care Teams State Federal Relations Deputy Director Relationship Specialty Start Date End Date Cas Galicia MD [address] [place] [address] PCP - General 02/17/22
--- OUTSIDE RECORDS SUMMARY | 2024-10-08 08:54 | XMS_ITS | Encounter Summary ---
Author Organization [facility] Sys tem Address [id number] [address] [place] [address] Care Team Providers Care Retail Event Coordinator Name Role Phone Cas Galicia MD Primary Care Provider [phone] Reason for Visit * Reason Onset Date Comments Med Refill 03/12/2024 Encounter Details Date Type Department Care Team (Late st Contact Info) Description 03/12/2024 Refill [facility] [address] [place] [address] Alina Garcia CMA Social History [...] Description 11/24/2024 10:00 AM EDT Office Visit [facility] Adult Endocrinology, A Department of [facility] [address] [address] Akila Ballard MD [address] [address] 12/26/2024 10:30 AM EST Office Visit [facility] Neurology, A Department of [facility] [address] [employer] [address] [address] Stella Flowers, TABLEAU ANALYST-JOURNEYMAN PATTERNMAKER [address] [address] [address] documented as of this encounter Visit Diagnoses Not on filedocumented in this encounter Additional Health Concerns Assessment Noted Time PHQ-9 Depression Total Score: 0 01/05/20 23 3:26 PM EST documented as of this encounter Care Teams Retail Event Coordinator Relationship Specialty Start Date End Date Cas Galicia MD PCP - General Family Medicine 11/18/20 documented as of this encounter
--- OUTSIDE RECORDS SUMMARY | 2024-10-08 08:54 | XMS_ITS | Encounter Summary ---
Author Organization [facility] Address [address] [facility], [address] [place] [address] Care Team Providers Care Polysomnographer Name Role Phone Cas Galicia MD Primary Care Provider + Encounter Details Date Type Department Care Team (Late st Contact Info) Description 09/18/2024 Abstract [facility] Part of [address] [address] Nabor Yancey, ORNAMENTAL METAL ERECTOR - MEMORIAL ADVISER [address] [place] [address] Social History Tobacco Use Types Packs/Day Years [...] Upcoming Encounters Date Type Department Care Team ([facility] st Contact Info) Description 03/19/2025 9:45 AM EST Office Visit [facility] Part of [address] [address] David Mcclure MD [address] [address] KATELIN; 6 mth follow up with Samuel Vega documented as of this encounter Visit Diagnoses Not on filedocumented in this encounter Care Teams Polysomnographer Relationship Specialty Start Date End Date Cas Galicia MD PCP - General 09/04/11 documented as of this encounter
--- OUTSIDE RECORDS SUMMARY | 2024-10-08 08:54 | XMS_ITS | Clinical Summary ---
Author Organization [facility] Address [address] [facility], [address] [place] [address] Care Team Providers Care Kier Hand Name Role Phone Cas Galicia MD Primary [...] Description 09/18/2024 10:45 AM EDT Office Visit [facility] [address] [address] Nabor Yancey, JOINT YARNER - MICROSTRATEGY DEVELOPER Multiple environmental allergies (Primary Dx); Moderate persistent asthma without complication; Chronic sinusitis, unspecified location; KATELIN (obstructive sleep apnea) 09/18/2024 Abstract [facility] Part of [address] [address] Nabor Yancey, JOINT YARNER - MICROSTRATEGY DEVELOPER 09/18/2024 Abstract [facility] Part of [place] [id number] Nabor Yancey, JOINT YARNER - MICROSTRATEGY DEVELOPER 09/16/2024 Orders Only [facility] Part of [place] [id number] Loraine Ponce MA Moderate persistent asthma without complication 09/16/2024 Abstract [facility] Part of [place] [id number] David Mcclure MD 08/22/2024 10:21 AM EDT - 08/24/2024 11:59 PM EDT Hospital Encounter [facility] Non-Invasive Cardiology [address] [place] [address] Edema, unspecified type; Palpitations with regular cardiac rhythm Discharge Disposition: Home or Self Care 08/15/2024 Transcribe Orders [facility] [address] [place] [address] Macrina Wadsworth, JOINT YARNER - MICROSTRATEGY DEVELOPER Edema, unspecified type (Primary Dx); Palpitations with [...] Description 03/19/2025 9:45 AM EST Office Visit [facility] [place] [address] David Mcclure MD [facility] [place] [address] KATELIN; 6 mth follow up with [employer] Maintenance Due Date Last Done Comments Diabetic [...] HEMOGLOBIN A1C Routine 01/09/2022 5:40 AM EST OPHTHALMIC NURSE CYTOLOGY Routine 03/17/2013 10:13 AM EST from [...] 100 % BS CV CPACS LA Minor [place] 4.9 cm [facility] CV CPACS LA Major [place] 5.5 cm [facility] CV CPACS LA Area [...] E Velocity 0.79 m/s BS CV CPACS VT Max Velocity 0.7 m/s BS CV CPACS Pulmonary Artery EDP 2 mmHg BS CV CPACS PV Max Velocity 1.0 m/s BS CV CPACS PV Peak Gradient 4 mmHg BS CV CPACS TAPSE 2.4 >=1.7 cm BS CV CPACS TR Max Velocity 2.07 m/s BS CV CPACS TR Peak Gradient 17 mmHg [facility] CV CPACS Body Surface Area 2.14 m2 [facility] CV CPACS Fractional Shortening 2D 32 28 - 44 % BS CV CPACS LV ESV Index A4C 20 mL/m2 BS CV CPACS LV EDV Index A4C 49 mL/m2 [facility] CV CPACS LV ESV Index A2C 16 mL/m2 BS CV CPACS LV EDV Index A2C 42 mL/m2 [facility] CV CPACS LVIDd Index 2.29 cm/m2 BS CV CPACS LVIDs Index 1.56 cm/m2 [facility] CV CPACS LV RWT Ratio 0.34 [facility] CV CPACS LV Mass 2D 122.3 67 - 162 g BS CV CPACS LV Mass 2D Index 59.6 43 - 95 g/m2 [facility] CV CPACS MV E/A 1.46 [facility] CV CPACS E/E' Lateral 5.41 [facility] CV CPACS LA Volume Index BP 24 16 - 34 ml/m2 [facility] CV CPACS LA Volume Index MOD A2C 21 16 - 34 ml/m2 [facility] LA Volume Index MOD A4C 25 16 - 34 ml/m2 [facility] Ao Root Index 0.78 cm/m2 [facility] CPACS Aortic Sinus Valsalva Index 1.27 cm/m2 [facility] CV CPACS Ascending Aorta Index 1.07 cm/m2 [facility] CPACS AV Velocity Ratio 0.75 [facility] CV CPACS LVOT:AV VTI Index 0.77 [facility] CPACS Est. RA Pressure 3 mmHg [facility] CV CPACS RVSP 20 mmHg [facility] CV CPACS EF Physician 60 % [facility] CV CPACS Anatomical Region Laterality Modality Echocardiography [...] adequate. No contrast was given. Macrina Wadsworth JOINT YARNER - MICROSTRATEGY DEVELOPER CV ECHO ORDERABLES Fi nal Result * (ABNORMAL) Basic Metabolic Panel (12/18/2022 4:10 PM EST) Sodium 138 135 - 144 mmol/L 12/18/2022 4:10 PM [facility] Potassium 4.0 3.7 - 5.3 mmol/L 12/18/2022 4:10 PM [facility] Chloride 102 98 - 107 mmol/L 12/18/2022 4:10 PM [facility] CO2 26 20 - 31 mmol/L 12/18/2022 4:10 PM [facility] Anion Gap 10 9 - 17 mmol/L 12/18/2022 4:10 PM [facility] Glucose 97 70 - 99 mg/dL 12/18/2022 4:10 PM [facility] BUN 12 6 - 20 mg/dL 12/18/2022 4:10 PM [facility] Creatinine 1.0(H) 0.5 - 0.9 mg/dL 12/18/2022 4:10 PM EST [facility] Est, Patricia Filt Rate >60 >60 mL/min/1.7 3m2 12/18/2022 4:10 PM EST [facility] Comment: These results are not intended [...] 9 - 20 12/18/2022 4:10 PM EST [facility] Calcium 9.5 8.6 - 10.4 mg/dL 12/18/2022 4:10 PM EST [facility] Blood BLOOD SPECIMEN / Unknown 12/18/2022 4:10 PM EST 12/18/2022 4:21 PM EST us Araseli Barrett MD CHEMISTRY ORDERABLES Final Resul t [facility] [address] [place] [address] * Hemoglobin A1c (01/09/2022 5:40 AM EST) Hemoglobin A1C 5.7 4.0 - 6.0 % 01/09/2022 5:40 AM EST [facility] Estimated Avg Glucose 117 mg/dL 01/09/2022 5:40 AM EST [facility] Comment: The ADA and AACC recommend providing the estimated average glucose result to permit better patient understanding of their HBA1c result. 01/09/2022 5:40 AM EST 01/09/2022 12:31 PM EST us Lore Rosado APRN - MICROSTRATEGY DEVELOPER CHEMISTRY ORD ERABLES Final Result Performing Organization Address City/[facility]/ZIP Co de Phone Number [facility] [address] [place] [address] [facility] [address] [place] [id number] [place] [address] * OPHTHALMIC NURSE Cytology (03/17/2013 10:13 AM EST) Cytology Report (NOTE) [id number] [facility] [employer] ANATOMIC PATHOLOGY [address] [place] [address] [phone] GYNECOLOGIC CYTOLOGY REPORT Patient Name: VIJAYA TRAN MR#: [id number] Specimen #[id number] Final Diagnosis CERVICAL MATERIAL, (THIN PREP VIAL): Specimen Adequacy: Satisfactory for evaluation. - Paucity/absence of endocervical transformation zone component. Descriptive Diagnosis: Negative for intraepithelial lesion or malignancy. TANYA Luna(ASCP) Electronically Signed Out dga/03/21/2013 Source: 1: CERVICAL MATERIAL, (THIN PREP VIAL) 03/21/2013 12:00 AM EST [facility] 03/17/2013 10:1 3 AM EST 03/17/2013 10:13 AM EST Loraine Morgan DO PATHOLOGY/CYTOLOGY ORDERABLES Final Result [facility] [address] [place], [place] [address] [phone] from Last 3 Months or Most Recently Relevant to Health Maintenance Insurance BCBS OUT OF STATE BCBS OUT OF STATE Advance Directives Documents on File Type Date Recorded Patient Research And Development Director Expl anation ACP-Advance Directive 01/12/2022 2:29 PM ACP-Power of Twist Packer 01/12/2022 2:29 PM * Full Code (Latest Code Status on File) Date Activated Date Inactivated Comments 01/08/2022 5:06 PM 01/11/2022 3:07 PM * Full Code Date Activated Date Inactivated Comments 12/30/2011 10:09 AM 12/31/2011 4:00 PM Healthcare Agents on File Name Relationship Healthcare Agent Relationship Communication Sean Tran Spouse Primary Decision Maker Care Teams Kier Hand Relationship Specialty Start Date End Date Cas Galicia MD PCP - General 09/04/11
--- NOTE | 2024-10-08 08:55 | US_ITS ---
The [address] [address] Patient Name: LEANA TRAN MRN: [id number] date: 1985 Sex: F Assigned Patient Location: US Current Patient Location: US Accession/Order Number: [id number] Exam Date: 10/08/2024 09:00 Report Date: 10/08/2024 10:45 At the request of: BAUTISTA OVERTON NP Procedure: US renal BI BILATERAL RENAL AND BLADDER ULTRASOUND CLINICAL HISTORY: Follow-up kidney stones and left renal mass COMPARISON: CT 10/09/2023 and ultrasound 08/21/2023 Estimation of renal size is approximately 11.0 cm on the right and 11.6 cm on the left. No shadowing calculi are identified. Mild left pelviectasis is again seen. There is no hydronephrosis on the right. A hyperechoic nodular area is present at the inferior left kidney measuring 11 x 7 x 11 mm. This may be an angiomyolipoma. There is no perinephric fluid. The urinary bladder is partially distended with a volume of 160 mL. No contour or intraluminal abnormalities are seen. US/US renal BI IMPRESSION: MILD LEFT PELVIECTASIS. POTENTIAL LEFT RENAL ANGIOMYOLIPOMA. Impression dictated by: Akila Orona M.D. 10/08/2024 10:45 AM Dictation Location: [place] [address] Electronically authenticated by: [id number] Y Date: 10/08/2024 10:45
--- NOTE | 2024-10-08 08:55 | XR_ITS ---
The [address] [address] Patient Name: LEANA TRAN MRN: [id number] date: 1985 Sex: F Assigned Patient Location: US Current Patient Location: US Accession/Order Number: [id number] Exam Date: 10/08/2024 09:19 Report Date: 10/08/2024 10:47 At the request of: BAUTISTA OVERTON NP Procedure: XR abdomen 1V SINGLE VIEW ABDOMEN COMPARISON: Renal ultrasound 10/08/[address] 10/09/2023 CLINICAL DATA: History of kidney stones. Supine views of the abdomen and pelvis were obtained. There is air and stool within the colon. No dilated small bowel loops are visualized. No soft tissue masses are seen. There are no suspect radiopaque renal or ureteral stones. There is slight levoscoliotic curvature and mild degenerative change at the spine. There is sclerosis at the SI joints. XR/XR abdomen 1V IMPRESSION: NO DEFINITE RADIOPAQUE STONES. Impression dictated by: Akila Orona M.D. 10/08/2024 10:47 AM Dictation Location: [place] [address] Electronically authenticated by: [id number] Y Date: 10/08/2024 10:47
--- OUTSIDE RECORDS SUMMARY | 2024-10-08 09:07 | XMS_ITS | CCD ---
Author Organization [facility] Care Team Providers Care Ocular Pathologist Name Role Phone Cas Dowell MD Primary [...] DO Unavailable Cas Dowell Primary Care Provider [phone] Rubens Tim DO Unavailable Cas Dowell Primary [...] CAS Guzman Attending Unavailable NADERER, DR CAS Guzmna Admitting Unavailable NADERER, DR CAS Guzman Consulting [...] Espinosa Attending Unavailabl e REINECK, DR CORIE Espinoas Admitting Unavailabl e NADERER, DR CAS Guzman Primary Care Unavailable PAY ., DR BURDEN Consulting Unavailable DARYN, AYAKA Consulting Unavailable WEST, DR BELÉN Hatfield Consulting Unavailable MATILDE ., MARICEL Attending Unavailable MATILDE ., MARICEL Admitting Unavailable NADERER, DR CAS Guzman Primary Care Unavailable MORTEZA ., YANIRA Consulting Unavailable DAMION, JIMMY Starkey Consulting Unavailable Ana PEREZ, Sai Unavailable Grayson PEREZ, Cas Primary Care Provider [phone] Cas Dowell Primary Care Provider [phone] Rubens Tim DO Unavailable Cas Dowell MD Primary Care Provider Cas Dowell MD Primary Care Provider Cas Dowell MD Unavailable SARAH BEST Attending Unavailable NADERESilvia, CAS Referring Unavailable NADERER, CAS Primary Care Unavailable MARNI FLOWERS Attending Unavailable NADERESilvia, CAS Referring Unavailable NADERESilvia, CAS Primary Care Unavailable AKILA YAO Attending Unavailable GRAYSON, CAS Referring Unavailable NADERESilvia, CAS Primary Care Unavailable MARNI FLOWERS Attending Unavailable GRAYSON, CAS Referring Unavailable NADERESilvia, CAS Primary Care Unavailable Cas Dowell MD Unavailable AKILA YAO Referring Unavailable NADERESilvia, CAS Primary Care Unavailable Grayson PEREZ, Cas Primary Care Provider Cas Dowell MD Primary Care Provider Cas Dowell MD Primary Care Provider Phillip Thomas Attending Un available Cas Dowell MD Primary Care Unavail able Phillip Thomas Attending Un available Cas Dowell MD Primary Care Unavail able Phillip Thomas Attending Un available Cas Dowell MD Primary Care Unavail able MARNI FLOWERS Attending Unavailable CAS DOWELL Referring Unavailable NADERER, CAS Primary Care Unavailable Cas Dowell MD Primary Care Provider IVORY ORDAZ Referring Unavailable NADERER, CAS JOHNSON Primary Care Unavailabl e YANCEYNABOR DIAZ Referring Unavailable NADERER, CAS JOHNSON Primary Care Unavailabl e KARABIMagalis, MACRINA Referring Unavailable NADERER, CAS JOHNSON Primary Care Unavailbenito e Cas Dowell MD Primary Care Provider [phone] [facility] Attending Provider Oliva Becerra Attending Unavail able ckeneufemia, Oliva Valdovinos Admitting Unavail able Coreyeresilvia, Cas Primary Care Unavailable NADERER, CAS Attending Unavailable DELILAHJODI Attending Unavailable NADERER, CAS Attending Unavailable NADERER, CAS Attending Unavailable NADERER, CAS Attending Unavailable RAMBASEKCHRISTY Attending Unavailable NADERER, CAS Referring Unavailable GLENROYRUBENS [place] Attending Unavailable NADERER, CAS Attending Unavailable VIPUL, ABIEL Referring Unavailable VIPUL, ABIEL Referring Unavailable VIPUL, ABIEL Referring Unavailable KARABIN, MACRINA Attending Unavailable ABEL, STEPHON Referring Unavailable VIPUL, ABIEL Referring Unavailable VIPUL, ABIEL Referring Unavailable KARABIN, MACRINA Attending Unavailable VIPUL, ABIEL Referring Unavailable VIPUL, ABIEL Referring Unavailable VIPUL, ABIEL Referring Unavailable VIPUL, ABIEL Referring Unavailable VIPUL, ABIEL Referring Unavailable VIPUL, ABIEL Referring Unavailable VIPUL, ABIEL Referring Unavailable ABEL, STEPHON Referring Unavailable VIPUL, ABIEL Referring Unavailable Naderer Cas PEREZ Primary Care Provider FUENTES AMARAL Referring Unavailable NADERERCAS Primary Care Unavailable MARGOT LIMON Attending Unavailable FUENTES AMARAL Referring Unavailable NADERECAS Almonte Primary Care Unavailable Selma Choe Attending Unavailable Allergies Allergy Classification Reported Allergen(s) Allergy Type Date of Onset Reaction(s) Facility Aluminum aspirin (1 source) Aluminum aspirin Drug Allergy 09-04-19 12 [facility] Cephalosporins (antibiotic) (2 sources) Cefaclor Drug Allergy 09-04-19 12 Shortness Of Breath, Rash [facility] Work Phone: drospirenone / Ethinyl Estradiol (1 source) drospirenone / Ethinyl Estradiol Drug Allergy 09-04-19 12 [facility] Phone: Ethinyl Estradiol / Norethindrone (1 source) Ethinyl Estradiol / Norethindrone Drug Allergy 09-04-19 12 [facility] Phone: Latex (1 source) Latex Substance Allergy 09-04-19 12 Swelling, Rash [facility] Phone: Macrolides (antibiotic) (1 source) Erythromycin Drug Allergy 09-04-19 12 Shortness Of Breath [facility] Phone: NSAIDs (1 source) Ibuprofen Drug Allergy 09-04-19 12 [facility] Phone: Penicillins (antibiotic) (1 source) Penicillins Drug Allergy 09-04-19 12 Rash [facility] Phone: rofecoxib (1 source) rofecoxib Drug Allergy 09-04-19 [facility] Phone: Sulfonamides (antibiotic) (1 source) Sulfonamides (Antibiotic) Drug Allergy 03-21-19 16 [facility] Unclassified (11 sources) Clindamycin/Lincomy juan Propensity to adverse reactions to drug 09-04-19 12 Rash [facility] Phone: Unclassified (20 sources) Iodides; Translations: [IODIDES] Propensity to adverse reactions to drug 09-04-19 12 Unknown, Anaphylaxis [facility] Phone: Unclassified (20 sources) Lavender Oil Propensity to adverse reactions to drug 06-14-19 21 Anaphylaxis [facility] (20 sources) Aluminum aspirin; Translations: [ASPIRIN] Drug Allergy 09-04-19 12 Rash, Angioedema, Unknown [facility] (20 sources) Cefaclor; Translations: [cefaclor] Drug Allergy 09-04-19 12 Shortness Of Breath, Anaphylaxis, Swelling, Unknown (qualifier value), Dyspnea (finding) [facility] Phone: (20 sources) Cefuroxime; Translations: [CEFUROXIME AXETIL] Drug Allergy 09-04-19 12 Rash, Unknown, Shortness of Breath [facility] Phone: (20 sources) drospirenone / Ethinyl Estradiol; Translations: [DROSPIRENONE-ETHIN YL ESTRADIOL] Drug Allergy 09-04-19 12 Unknown, Other: See Comments [facility] Phone: (20 sources) Erythromycin; Translations: [ERYTHROMYCIN] Drug Allergy 09-04-19 12 Shortness Of Breath, Swelling, Unknown [facility] Phone: (20 sources) Ethinyl Estradiol / Norethindrone Drug Allergy 09-04-19 12 [facility] Phone: (20 sources) Ibuprofen; Translations: [ibuprofen] Drug Allergy 09-04-19 12 Unknown (qualifier value), Rash, Unknown, Dyspnea (finding) [facility] (20 sources) Latex; Translations: [LATEX] Propensity to adverse reactions to drug 09-04-19 12 Swelling, Rash, Itching, Unknown, Eruption of skin (disorder) [facility] Phone: Comment on above: and swelling (15 sources) Penicillins; Translations: [PENICILLINS] Propensity to adverse reactions to drug 09-04-19 12 Rash, Itching [facility] Phone: (20 sources) rofecoxib Drug Allergy 09-04-19 12 Unknown, Rash [facility] Phone: (6 sources) Sulfonamides (Antibiotic) Propensity to adverse reactions to drug 03-21-19 16 [facility] (20 sources) Aspirin; Translations: [aspirin] Drug Allergy 09-04-19 12 Unknown, Angioedema, Unknown (qualifier value), Weal (disorder), Rash [facility] (20 sources) Clindamycin; Translations: [clindamycin] Drug Allergy 02-23-19 15 Swelling, Shortness of Breath, Rash, Unknown (qualifier value), Eruption of skin (disorder) [facility] Comment on above: sob, rash (20 sources) Contrast media; Translations: [CONTRAST DYE] Drug Allergy 09-04-19 12 Anaphylaxis [facility] (20 sources) Naproxen; Translations: [NAPROXEN] Drug Allergy 09-07-19 21 Swelling, Angioedema [facility] (19 sources) Penicillins Propensity to adverse reactions to drug 02-23-19 15 Rash, Itching [facility] (20 sources) Sulfonamides (Antibiotic); Translations: [SULFA (SULFONAMIDE ANTIBIOTICS)] Drug Allergy 03-21-19 16 Swelling, Shortness of Breath [facility] (20 sources) Lavender (Lavandula Angustifolia); Translations: [LAVENDER (LAVANDULA ANGUSTIFOLIA)] Drug Allergy 06-14-19 21 Anaphylaxis [facility] (7 sources) Eucalyptus oil Drug Allergy 10-24-19 21 [facility] (20 sources) gatifloxacin; Translations: [GATIFLOXACIN] Drug Allergy 12-22-19 15 Diarrhea [facility] Work Phone: (20 sources) Norethindrone-Ethin Estradiol; Translations: [NORETHINDRONE-ETHI N ESTRADIOL] Propensity to adverse reactions to drug 09-04-19 12 Unknown [facility] (20 sources) Eucalyptus extract; Translations: [EUCALYPTUS] Drug Allergy 10-24-19 21 Anaphylaxis [facility] (20 sources) levoFLOXacin; Translations: [LEVOFLOXACIN] Drug Allergy 11-12-19 21 Rash [facility] (20 sources) metroNIDAZOLE; Translations: [METRONIDAZOLE] Drug Allergy 03-02-19 22 Unknown [facility] (20 sources) Sulfamethoxazole / Trimethoprim; Translations: [SULFAMETHOXAZOLE-T RIMETHOPRIM] Drug Allergy 01-24-20 14 Unknown, Other (See Comments) [facility] (20 sources) Fish; Translations: [FISH CONTAINING PRODUCTS] Drug Allergy 07-26-19 22 [facility] Work Phone: (20 sources) Shellfish; Translations: [SHELLFISH DERIVED] Drug Allergy 07-26-19 22 [facility] Work Phone: (20 sources) Penicillins Propensity to adverse reactions to drug 09-04-19 12 Rash, Itching [facility] (20 sources) Penicillin G; Translations: [PENICILLIN G BENZATHINE] Drug Allergy 08-19-19 22 Unknown [facility] Work Phone: (7 sources) Iodine; Translations: [iodine] Drug Allergy 05-25-19 23 Unknown (qualifier value) [facility] (7 sources) Macrolides (Antibiotic); Translations: [macrolide antibiotics] Drug allergy 09-04-19 12 Allergy - specialty (qualifier value) [facility] (7 sources) Penicillin; Translations: [penicillin] Drug Allergy Unknown (qualifier value), Dyspnea (finding) [facility] (7 sources) Sulfonamides (Antibiotic); Translations: [sulfa drugs] Drug allergy Allergy - specialty (qualifier value) [facility] (20 sources) valACYclovir; Translations: [valacyclovir] Drug Allergy 10-06-19 22 Anaphylaxis (disorder), Shortness Of Breath, Anaphylaxis [facility] (20 sources) Povidone-Iodine; Translations: [povidone iodine topical] Drug Allergy 05-25-19 23 Eruption of skin (disorder), Rash [facility] (20 sources) Seafood Propensity to adverse reactions to drug 01-09-20 22 Hives, Rash [facility] Work Phone: (20 sources) rofecoxib; Translations: [ROFECOXIB] Drug Allergy 09-04-19 12 Rash, Unknown [facility] (6 sources) IODINATED CONTRAST MEDIA; Translations: [IODINATED CONTRAST MEDIA] Propensity to adverse reactions to drug (disorder) 02-23-19 15 [facility] (1 source) Aspirin Drug Allergy 03-12-19 15 [facility] (3 sources) Cefaclor; Translations: [Ceclor] Drug Allergy 03-12-19 15 [facility] (2 sources) Cefuroxime; Translations: [Ceftin] Drug Allergy 03-12-19 15 [facility] (1 source) Clindamycin Drug Allergy 03-12-19 15 [facility] (3 sources) Erythromycin Drug Allergy 03-12-19 15 Difficulty Breathing [facility] (1 source) Eucalyptus extract Drug Allergy 10-24-19 21 [facility] (1 source) gatifloxacin Drug Allergy 12-22-19 15 [facility] (2 sources) Ibuprofen; Translations: [Motrin] Drug Allergy [facility] (1 source) Iodine (And Iodine Containting Drugs) Drug allergy (disorder) 03-12-19 15 [facility] (1 source) Latex Drug allergy (disorder) 03-12-19 15 [facility] (1 source) levoFLOXacin Drug Allergy 11-12-19 21 [facility] (1 source) Naproxen Drug Allergy 08-07-19 21 [facility] (1 source) Penicillins Drug allergy (disorder) 03-12-19 15 [facility] (1 source) rofecoxib Drug Allergy 03-12-19 15 [facility] (1 source) Sulfamethoxazole / Trimethoprim Drug Allergy 02-23-19 21 [facility] (1 source) Sulfonamides (Antibiotic) Drug allergy (disorder) 03-12-19 15 [facility] (1 source) valACYclovir Drug Allergy [facility] (20 sources) buPROPion; Translations: [BUPROPION] Drug Allergy 06-22-19 23 Other (See Comments), Other: See Comments [facility] (20 sources) Cefuroxime Drug Allergy 07-08-19 23 [facility] (20 sources) dimethicone; Translations: [DIMETHICONE] Drug Allergy 07-08-19 23 [facility] (20 sources) Fish - dietary Allergy to substance 07-26-19 22 Hives [facility] (20 sources) Gatifloxacin Allergy to substance 12-22-19 15 Diarrhea [facility] (20 sources) Latex Allergy to substance 09-04-19 12 Itching, Rash, Swelling, Unknown [facility] (20 sources) Menthol; Translations: [MENTHOL] Drug Allergy 02-27-19 23 Hives [facility] (20 sources) Penicillins Drug Intolerance 09-04-19 12 Itching, Rash [facility] (20 sources) zolpidem; Translations: [ZOLPIDEM] Drug Allergy 05-25-19 23 Unknown, Other (See Comments) [facility] Comment on above: muscle spasms and je rking (20 sources) Galcanezumab-Gnlm Propensity to adverse reactions 07-08-19 23 [facility] (20 sources) Norethindrone-Eth Estradiol Drug Intolerance 09-04-19 12 [facility] (20 sources) Benzathine penicillin - chemical Allergy to substance 08-22-19 24 [facility] (20 sources) Sulfamethoxazole; Translations: [SULFAMETHOXAZOLE] Allergy to substance 08-19-19 22 Difficulty Breathing [facility] Comment on above: triggers asthma (4 sources) Ibuprofen; Translations: [IBUPROFEN] Drug Allergy 09-04-19 12 [facility] (4 sources) natural latex rubber; Translations: [LATEX, NATURAL RUBBER] Propensity to adverse reactions to drug (disorder) 09-04-19 12 [facility] (20 sources) GLOVES, LATEX WITH ALOE VERA; Translations: [GLOVES, LATEX WITH ALOE VERA] Propensity to adverse reactions to drug (disorder) 08-19-19 22 [facility] (4 sources) NORETHINDRONE AC-ETH ESTRADIOL; Translations: [NORETHINDRONE AC-ETH ESTRADIOL] Propensity to adverse reactions to drug (disorder) 09-04-19 12 [facility] ([facility] sources) Topiramate Propensity to adverse reactions 02-10-19 25 Confusion [facility] (19 sources) Sulfamethoxazole Drug Allergy 08-19-19 22 [facility] (1 source) CT dye and contrast; Translations: [CT dye and contrast] Propensity to adverse reactions (disorder) [facility] Rep[facility] (4 sources) Penicillins Propensity to adverse reactions to drug 09-04-19 12 Itching, Rash [facility] (2 sources) Trimethoprim Drug Allergy 09-09-19 25 Difficulty Breathing [facility] Comment on above: triggers asthma Medications Current Medications Medication Drug Class(es) Dates Sig (Normalized) Sig (Original) 6-aminocaproic acid 500 mg oral tablet (7 sources) Antifibrinolytic Agent Start: 04-03-2022 End: 10-22-2022 [...] 20 days. acetaminophen 500 mg oral tablet (5 sources) Start: 01-30-2022 take 1 tablet by [...] every four hours as needed for headache brtjkeqrhg-bocyymrontguh-ahjrwpan (FIORICET) 50-325-40 MG per tablet Take 1 [...] Refills(s) 0 Start Date: 01/04/23 Status: Ordered arformoterol 0.0075 mg/ml inhalation solution (20 sources) beta2-Adrenergic Agonist Sta rt: 2 Arformoterol Tartrate (BROVA NA) 15 MCG/2ML NEBU Take 1 ampule by [...] spray (20 sources) Histamine-1 Receptor Antagonist Start: End: take 1 spray(s) nasal route at bedtime azelastine (ASTELIN) 137 mcg (0.1 %) nasal spray Indications: Chronic sinusitis SPRAY 1 SPRAY INTO EACH NOSTRIL IN THE MORNING AND BEFORE BEDTIME DIRECTED 30 mL 12 09/10/2023 07/01/2024 Discontinued Start: 04-09-2023 Azelastine HCl 137 MCG/SPRAY solution [...] THE MORNING AND BEFORE BEDTIME DIRECTED baclofen 20 mg oral tablet (20 sources) gamma-Aminobutyric Acid-ergic Agonist Start: 07-01-2024 take 1 tablet by mouth in the morning, then take 1 tablet by mouth in the evening, then take 1 tablet by mouth at bedtime baclofen (Lioresal) 20 MG tablet Take 1 tablet (20 mg) by mouth in the morning and 1 tablet (20 mg) in the evening and 1 tablet (20 mg) before bedtime. 08/11/2024 Active Start: 2021 End: 08-11-2024 take 10 mg by mouth three times daily baclofen 10 mg, Oral, TID, Refills(s) 0 Start Date: 12/21/21 Status: Ordered Start: 2021 baclofen Oral, TID, Refills(s) 0 Start Date: 12/21/21 Status: Ordered Start: 08-24-2021 End: 07-01-2024 take 1 tablet by mouth once daily at bedtime Comment on above: Take 10-20 mg by [...] inhaler (20 sources) Corticosteroid, beta2-Adrenergic Agonist Start: 3 take 2 puff(s) by inhalation twice daily SYMBICORT 160-4.5 MCG/ACT AERO Inhale 2 puffs into the lungs 2 times daily 06/12/2022 Active Start: 06-12-2022 End: 07-01-2024 take 2 puff(s) by mouth twice daily SYMBICORT 160-4.5 mcg/actuation inhaler TAKE 2 PUFFS BY MOUTH TWICE A DAY 06/12/2022 07/01/2024 Discontinued End: 08-11-2024 take 2 puff(s) by inhalation in the morning budesonide-formoterol (Symbicort) 160-4.5 MCG/ACT inhaler Inhale 2 puffs in the morning and 2 puffs before bedtime. Rinse mouth with water after use to reduce aftertaste and incidence of candidiasis. Do not swallow. 08/11/2024 Discontinued End: 10-31-2021 budesonide-formoterol (SYMBI NIK) 160-4.5 [...] needed. calcium carbonate 500 mg chewable tablet (3 sources) take 2 tablets by mouth twice daily calcium carbonate (TUMS) 500 MG chewable tablet Take 2 tablets by mouth 2 times daily Active cetirizine hydrochloride 10 mg oral tablet (20 sources) Histamine-1 Receptor Antagonist Start: 2 cetirizine 10 mg Tab Refills(s) 0 Start [...] mouth as needed. cholecalciferol 0.125 mg oral capsule (20 sources) Vitamin D Start: 05-20-19 End: 09-17-19 take 1 capsule by mouth once daily cholecalciferol (Vitamin D-3) 125 MCG (5000 UT) capsule Indications: Vitamin D deficiency TAKE 1 CAPSULE (125 MCG) BY MOUTH DAILY 30 capsule 3 09/16/2024 Active Start: 04-29-2021 take 1 tablet by shaji th once daily VITAMIN D-3 125 mcg (5,000 unit) tab Take 5,000 Units by mouth once daily. 04/29/2021 Active take 1 capsule by mo uth in the morning cholecalciferol (Vitamin D-3) 125 MCG (5000 UT) capsule Take 5,000 Units by mouth in the morning. Active Cholecalciferol (VITAMIN D3) 50 MCG (2000 UT) CAPS Take by mouth 0 Active Comment on above: Take 5,000 Units by mouth once daily. cholecalciferol, vitamin D3, (VITAMIN D3 ORAL) (19 sources) cholecalciferol, vitamin D3, (VITAMIN D3 ORAL) [...] procedure., # 2 tab(s), Refills(s) 0, Pharmacy: [facility]/pharmacy #[id number], 162, cm, 12/21/21 8:50:00 EST, Height/Length Dosing, 99, kg, 12/21/21 8:50:00 EST, Weight Dosing Start Date: 12/21/21 Status: Ordered CPAP/BIPAP/OTHER (6 sources) CPAP/BIPAP/OTHER Type .CPAPSettings into a note [...] extended release oral tablet (1 source) Uncompetitive T-jcfhax-A-aspartate Receptor Antagonist, Sigma-1 Agonist take 30-600 mg by mouth once as needed dextromethorphan- guaiFENesin (MUCINEX DM) 30-600 MG per extended release tablet Take 1 tablet by mouth every 12 hours as needed 0 Active doxycycline hyclate 100 mg oral tablet (19 sources) Tetracycline-class Drug Start: 2024 End: 2024 take 1 tablet by mouth twice daily doxycycline (VIBRA-TABS) 100 mg tablet Take 100 mg by mouth two times a day. 09/25/2024 10/05/2024 Active Start: 12-24-2023 End: 02-20-2024 take 1 capsule by mouth twice daily Doxycycline Hyclate 100 mg capsule Discontinued 100 MG PO Twice daily 14 December 24, 2023 1:00am February 20, 2024 1:47pm Start: 06-06-2021 End: 07-01-2021 take 1 capsule by mouth twice daily doxycycline monohydrate (MONODOX) 100 mg capsule TAKE 1 CAPSULE BY MOUTH TWICE A DAY FOR 10 DAYS 0 06/06/2021 07/01/2021 Discontinued Comment on above: TAKE 1 CAPSULE BY MO UT TWICE A DAY FOR 10 DAYS DULoxetine 60 mg delayed release oral capsule (20 sources) Serotonin and Norepinephrine Reuptake Inhibitor Start: take 1 capsule by mouth once daily [...] 12/21/21 Status: Ordered take 2 capsules by m outh once daily DULoxetine (CYMBALTA) 30 MG extended release capsule Take 2 capsules by mouth daily Active Comment on above: TAKE 1 CAPSULE BY MO UT EVERY DAY DO NOT CRUSH OR CHEW [id number] 0.3 ml EPINEPHrine 1 mg/ml auto-injector (20 sources) alpha-Adrenergic Agonist, beta-Adrenergic Agonist, Catecholamine Start: 07-02-2023 EPINEPHrine (Epipen) 0.3 MG/0.3ML injection syringe 07/02/2023 Active Start: 07-02-2023 EPINEPHrine (E pipen) 0.3 MG/0.3ML injection syringe 0.3 MG (0.3 [...] EPINEPHrine (EPI PEN 2-ERMA IJ) Inject as directed Active EPINEPHrine (EPI PEN 2-ERMA IJ) Inject [...] dose nasal spray (20 sources) Corticosteroid Start: 04-09-19 take 1 spray(s) nasal route once daily Start: 12-16-2021 Flonase Allerg y Relief 50 mcg/inh nasal spray Daily, Refills(s) 0 Start Date: 12/16/21 Status: Ordered Start: 07-14-2021 End: 10-19-2021 take 1 spray(s) nasal route twice daily fluticasone (FLONASE) 50 mcg/actuation nasal spray Use 1 [place] in each nostril twice daily. 3 Each [...] sprays into each nostril once daily. Active Comment on above: Use 1 [place] in each nostril twice daily. 1 spray [...] fremanezumab-vfrm 150 mg/ml auto-injector (20 sources) Start: 01-02-2024 End: 01-02-2024 fremanezumab-vfrm (AJOVY SYRINGE) 225 mg/1.5 mL Indications: Migraine without aura and without status migrainosus, not intractable Inject 4.5 mL (675 mg total) under the skin once for 1 dose. 4.5 mL 01/02/2024 01/02/2024 Active Start: 12-24-2023 Start: 01-17-2022 End: 08-11-2024 fremanezumab-vfrm (AJOVY 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) 225 mg/1.5 mL Indications: Migraine without aura and without status migrainosus, not intractable Inject 1.5 mL (225 mg total) under the skin every 28 days. 4.5 mL 3 08/11/2024 Active Start: 2021 inject 1 mg by subcu taneous injection every month Ajovy mg, SubCutaneous, qMonth, Refills(s) 0 Start Date: 12/21/21 Status: Ordered Start: 10-19-2021 inject 1.5 mL by sub cutaneous injection every month in the morning fremanezumab-vfrm subcutaneus auto-injector 225 mg/1.5 mL (AJOVY) Indications: Chronic migraine without aura, intractable, without status migrainosus Inject 1.5 mL subcutaneously once every month. Do not shake. 1.5 mL 11 06/12/2022 8:34 AM EDT 10/19/2021 Active Comment on above: Inject 1.5 mL subcut aneously once every month. Do not shake. furosemide 20 mg oral tablet (18 sources) Loop Diuretic Start: take 1 tablet by mouth once daily as needed for edema furosemide (Lasix) 20 MG tablet Indications: Edema of both legs Take 1 tablet (20 mg) by mouth Daily as needed (Edema) 30 tablet 3 08/11/2024 Active End: 06-10-2021 furosemide (LASIX) 40 mg tab let Take 40 mg by mouth. 0 06/10/2021 Discontinued Comment on above: Take 40 mg by mouth. hydrocortisone 25 mg/ml topical cream (13 sources) Corticosteroid Start: hydrocortisone 2.5 % cream Indications: Other specified dermatitis Apply topically 2 (two) times a day as needed (Rash) Apply thin layer to affected areas bid prn for flares 30 g 3 07/08/2024 Active ketorolac tromethamine 10 mg oral tablet (7 sources) Nonsteroidal Anti-inflammatory Drug, Cyclooxygenase Inhibitor Start: take 1 tablet by mouth every six hours as needed for pain ketorolac (TORADOL) 10 mg tablet Take 1 tablet (10 mg total) by mouth every 6 (six) hours as needed for pain. 20 tablet 05/06/2024 Active Start: 08-17-2020 End: 06-10-2021 take 1 tablet by mouth four times daily as needed keTORolac (TORADOL) 10 mg tablet TAKE 1 TABLET BY MOUTH FOUR TIMES A DAY NEEDED 0 08/17/2020 06/10/2021 Discontinued Start: 06-13-2020 End: 06-13-2020 ketorolac (TORADOL) injectio n 30 mg Comment on above: TAKE 1 TABLET BY SHAJI TH FOUR TIMES A DAY NEEDED lamoTRIgine 150 mg oral tablet (20 sources) Mood Stabilizer, Anti-epileptic Agent Start: 12-16-2021 take 1 tablet by mouth once daily Comment on above: Take 150 mg by mouth daily at bedtime. levalbuterol 2.5 mg/ml inhalation solution (20 sources) beta2-Adrenergic Agonist Start: 02-27-2024 levalbuterol (Xopenex Concentrate) 1.25 MG/0.5ML nebulizer solution Indications: Moderate persistent asthma without complication (HCC) Take 0.5 mL (1.25 mg) by nebulization every 4 (four) hours if needed for wheezing or shortness of breath 60 each 2 02/27/2024 Active Start: 02-20-2024 take 1 puff(s) by in halation every four hours as needed Start: 02-11-2024 take 2 puff(s) by in halation every four hours for wheezing levalbuterol (Xopenex HFA) 45 MCG/ACT inhaler Indications: Moderate persistent asthma without complication (HCC) Inhale 2 [...] (PASC) , Moderate persistent asthma without complication (HCC) Inhale 1-2 Puffs as instructed every 4 hours as needed for wheezing/shortness of breath. 1 Each 3 10/31/2021 Active Comment on above: Inhale 1-2 Puffs as instructed every 4 hours as needed for wheezing/shortness of breath. levocetirizine dihydrochloride 5 mg oral tablet (20 sources) Histamine-1 Receptor Antagonist Start: 09-05-2022 take 1 tablet by mouth once daily Levocetirizine D ihydrochloride (XYZAL PO) Take by mouth daily Active levothyroxine sodium 0.1 mg oral tablet (20 sources) l-Thyroxine Start: 02-22-2022 End: 05-01-2024 Synthroid 100 MCG tablet 01/07/2023 Active Start: 01-18-2022 take 0.5 tablet [...] Peptidase 4 Inhibitor Start: 12-23-19 End: 10-10-19 24 take 1 tablet by mouth once daily Tradjenta 5 MG tablet Indications: Type 2 diabetes mellitus with hyperglycemia (CMS/HCC) TAKE 1 TABLET BY MOUTH EVERY DAY 90 tablet 1 10/01/2023 10/10/2023 Discontinued liothyronine sodium 0.005 mg oral tablet (20 sources) l-Triiodothyronine Start: 12-06-19 24 End: 03-31-19 25 liothyronine (Cytomel) 5 MCG tablet 5 mcg 01/31/2024 Active LORazepam 0.5 mg oral tablet (20 sources) Benzodiazepine Start: 06-29-19 22 End: 03-10-19 23 take 1 tablet by [...] mg by mouth twice daily as needed. magnesium gluconate 500 mg oral tablet (20 [...] mg before bedtime. 600 mg. Active magnesium glycinate 100 mg oral tablet (1 source) Magnesium Glycin ate 100 MG CAPS Take by mouth Active Magnesium Glycinate 100 mg magnesium capsule (2 sources) Start: 12-24-2023 magnesium glycinate 100 mg magnesium capsule (1 source) magnesium glycin ate 100 mg magnesium capsule Take 200 mg by mouth as directed. Active magnesium oxide 400 mg oral tablet [...] Refills(s) 0 Start Date: 01/04/23 Status: Ordered 10 actuat olodaterol 0.0025 mg/actuat / tiotropium 0.0025 mg/actuat inhalation spray (1 source) Anticholinergic, beta2-Adrenergic Agonist Start: 04-17-2024 tiotropium-olodatero l (STIOLTO RESPIMAT) 2.5-2.5 MCG/ACT AERS Inhale 2 puffs into the lungs daily 1 each 6 04/17/2024 Active ondansetron 4 mg disintegrating oral tablet (20 [...] above: ondansetron 4 mg dis integrating tablet perflutren lipid microspheres 1.3 mL in NaCl (PF) 0.9% 10 mL injection (DEFINITY) (20 sources) Start: 07-22-19 End: 10-21-19 23 perflutren lipid microspheres 1.3 mL in NaCl (PF) 0.9% 10 mL injection (DEFINITY) potassium chloride 10 meq extended release oral tablet (1 source) Start: 10-01-19 25 take 1 tablet by mouth once daily potassium chloride (K-TAB) 10 mEq tablet Take 1 tablet by mouth once daily. 30 tablet 09/30/2024 Active prasterone 25 mg oral tablet (20 sources) Start: 12-24-19 24 take 1 tablet by mouth once daily DHEA 10 MG capsu le Take 5 mg by mouth Active predniSONE 50 mg oral tablet (20 sources) Start: 09-25-2024 End: 10-01-2024 take 50 mg by mouth once daily predniSONE (DELTASONE) 50 mg Take 50 mg by mouth once daily. 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 Do all this for 5 days. With breakfast and lunch. 20 tablet 07/01/2024 07/06/2024 Active Start: 02-27-2024 End: 08-11-2024 take 6 tablets by mouth once daily, [...] daily x 3 days 39 tablet 02/27/2024 08/11/2024 Discontinued Start: 12-24-2023 End: 02-20-2024 take 2 tablets by mouth once daily Prednisone 20 mg tablet Discontinued 40 MG PO Daily 6 3 December 24, 2023 1:00am February 20, 2024 1:48pm Start: 01-11-2022 predniSONE (DE LTASONE) 10 MG [...] mg by mouth once daily. pyridostigmine bromide 180 m g extended release oral tablet (20 sources) Start: 12-24-2023 End: 12-24-2023 take 1 tablet by mouth twice daily Start: 10-10-2023 End: 05-23-2025 take 1 tablet by mouth three times daily pyridostigmine (MESTINON) 60 mg tablet Take 1 tablet (60 mg total) by mouth 3 (three) times a day. 10/10/2023 05/23/2025 Active Start: 07-21-2022 take 3 tablets by mo uth twice daily pyridostigmine (MESTINON) 60 mg tablet Take 180 mg by mouth two times a day. 07/21/2022 Active Start: 07-21-2022 End: 07-21-2023 pyridostigmine (MESTINON) 60 mg tablet Take 1 tablet (60 mg total) by mouth. 07/21/2022 07/21/2023 Active Comment on above: Take by mouth. rimegepant 75 mg disintegrating oral tablet (20 sources) Start: End: 05-27-202 5 rimegepant (NURTEC ODT) 75 mg tablet,disintegratin g Dissolve 1 tablet on tongue as needed (migraine). 8 tablet 11 06/29/2022 07/01/2024 Discontinued Comment on above: Take 1 tablet by [...] 200 mg by mouth daily at bedtime. 125 ml sodium chloride 9 mg/ml prefilled syringe (20 sources) Start: 07-21-2021 End: 10-20-2022 sodium chloride 0.9 % (flush) 10 mL (BD POSIFLUSH) Start: 05-20-2021 End: 05-20-2021 0.9 % sodium chloride bolus Start: 04-16-2021 End: 04-16-2021 0.9 % sodium chloride bolus sucralfate 1000 mg oral tablet (1 source) Aluminum Complex Start: 02-01-2023 Carafate 1 gr am Tab 1 gm = 1 tab(s), Oral, [...] stone, # 30 tab(s), Refills(s) 1, Pharmacy: [facility]/pharmacy #[id number], 162, cm, 09/05/22 8:28:00 EDT, [...] 1 tablet by mouth once as needed Ubrogepant (Ubre lvy) 50 MG tablet Take [...] 01/04/2023 Active take 2 tablets by mouth once gianni ly cyanocobalamin (Vitamin B-12) 500 MCG tablet Take 1,000 mcg by mouth Daily Active Vitamin B12, Folate, and Acetylcysteine oral [...] oral capsule (20 sources) Anti-epileptic Agent Start: 09-15-2024 take 2 capsules by mouth in the evening zonisamide (ZONEGRAN) 100 mg capsule Indications: Migraine without aura and without status migrainosus, not intractable Take 2 capsules (200 mg total) by mouth in the evening. 180 capsule 1 09/15/2024 Active Start: 12-24-2023 take 1 capsule by mo uth once daily Start: 07-05-2023 End: 09-15-2024 take 2 capsules by mouth in the morning zonisamide (Zonegran) 100 MG capsule TAKE 2 CAPSULES (200 MG TOTAL) BY MOUTH IN THE MORNING. 06/25/2024 Active Start: 10-03-2022 End: 02-06-2023 take 2 capsules by mouth once daily at dinner zonisamide (ZONEGRAN) 100 mg capsule Take 2 capsules (200 mg total) by mouth Daily before evening meal. 180 capsule 1 10/03/2022 02/06/2023 Discontinued Start: 11-17-2020 End: 07-05-2023 take 1 capsule by mouth once daily at dinner zonisamide (ZONEGRAN) 100 mg capsule TAKE 1 CAPSULE (100 MG TOTAL) BY MOUTH DAILY BEFORE EVENING MEAL. 90 capsule 1 02/06/2023 07/05/2023 Discontinued (Reorder) take 2 capsules by m outh once daily zonisamide (ZONEGRAN) 25 MG capsule Take 50 mg by mouth daily 0 Active Comment on above: Take 1 capsule by mo uth once daily. Completed/Discontinued Medications Medication Drug Class(es) Dates Sig (Normalized) Sig (Original) [id number] 200 actuat albuterol 0.09 mg/actuat metered dose inhaler (20 sources) beta2-Adrenergic Agonist Start: 12-24-2023 End: 02-20-2024 Albuterol Sulfate 90 mcg/actuation HFA aerosol inhaler Discontinued INHALATION December 24, 2023 1:00am February 20, 2024 1:46pm FreeTextSig: Inhalation; Note: Source Status: Taking; Qty: 8.5 Unspecified; Provider: Diego Murray ( ) Start: 12-19-2023 take 1 dose by inhalation once 4 puff, Inhalation, ONCE, 1 dose, On Sun12/19/23 at 0800, Initiate RT Bronchodilator Protocol: No Start: 01-11-2022 albuterol (PRO VENTIL HFA;VENTOLIN HFA) 90 mcg/actuation inhaler as needed. 01/11/2022 Active Start: 01-11-2022 take 1 puff(s) by in halation every six hours as needed for wheezing albuterol sulfate HFA (PROVENTIL;VENTOLIN;PROAIR) 108 (90 Base) MCG/ACT inhaler Inhale 1 puff into the lungs every 6 hours as needed for Wheezing 18 g 3 01/11/2022 Active Start: 01-11-2022 End: 02-11-2024 albuterol (PROVENTIL HFA;MARJORIE TOLIN HFA) 90 mcg/actuation inhaler every 4 (four) hours. 0 01/11/2022 Active Start: 01-11-2022 albuterol (PRO VENTIL [...] hours as needed for Wheezing 30 each 11/01/2020 05/20/2021 Discontinued (LIST CLEANUP) take 1 [...] on above: Inhale as instructed as needed. albuterol 0.833 mg/ml / ipratropium bromide 0.167 mg/ml inhalation solution (1 source) Anticholinergic, beta2-Adrenergic Agonist Start: 09-05-2021 End: 09-05-2021 ipratropium-albuterol (DUONEB) nebulizer solution 1 ampule Start: 09-05-2021 [...] as needed for Itching or Sleep Active Comment on above: Take 50 mg by mouth. Take 50 mg by mouth every 6 hours as needed. EPINEPHrine (EPINEPHrine HCL) 1 mg/mL injection 0.3 mg (1 source) Start: 09-05-2021 End: 09-05-2021 EPINEPHrine (EPINEPHrine HCL) 1 mg/mL injection 0.3 mg 168 hr estradiol 0.49714 mg/hr transdermal system (4 sources) Estrogen Start: [...] THE SKIN ONCE PER WEEK estrogens, conjugated (senior living) 0.625 mg oral tablet (3 sources) Estrogen [...] once daily. fluconazole 150 mg oral tablet (12 sources) Azole Antifungal Start: 4 End: take 1 tablet by mouth once daily Fluconazole 150 mg tablet Discontinued 150 MG PO Daily December 24, 2023 1:00am February 20, 2024 1:47pm administer on day 1 of therapy Start: 06-06-2021 End: 07-01-2021 fluconazole (DIFLUCAN) 150 m g tablet TAKE 1 TABLET BY MOUTH ONCE [...] mL as instr ucted every 12 hours. 1 ml galcanezumab-gnlm 120 mg/ml prefilled syringe [...] eously once every month. Do not shake. levoFLOXacin 750 mg oral tablet (2 sources) Quinolone Antimicrobial Start: 09-26-19 End: 09-26-19 take 1 tablet by mouth once daily levoFLOXacin (Levaquin) 750 MG tablet Indications: Chronic rhinosinusitis Take 1 tablet (750 mg) by mouth Daily for 7 days 7 tablet 09/25/2024 09/25/2024 Discontinued lidocaine 0.05 mg/mg medicated patch (13 sources) [...] LEAVE OFF 12 HOURS. Magnesium (20 sources) End: 10-01-19 Magnesium 250 mg tab Take 250 mg by mouth. 09/30/2024 Discontinued (Duplicate Entry) End: 07-01-2024 magnesium 250 mg tablet Take 1 tablet (250 mg total) by mouth. 07/01/2024 Discontinued Magnesium 250 mg tab Take 250 mg by mouth. Active magnesium 250 mg tablet Take 1 tablet (250 mg total) by mouth. Active magnesium 250 mg tablet Take 1 tablet (250 mg total) by mouth. 0 Active Magnesium 250 mg tab Take 250 mg by mouth. 0 Active Comment on above: Take 250 mg by mouth . metFORMIN hydrochloride 500 mg oral tablet (6 [...] End: 06-21-2021 orphenadrine (NORFLEX) injection 60 mg pantoprazole 40 mg delayed release oral tablet (20 sources) Proton Pump Inhibitor Start: 11-09-2023 End: 04-08-2024 Pantoprazole 40 mg tablet,delayed release (DR/EC) Discontinued MG PO December 24, 2023 1:00am April 08, 2024 1:02pm Start: 02-13-2023 take 1 tablet by shaji th twice daily Pantoprazole [address] Tab 40 mg = 1 tab(s), Oral, BID, # 60 tab(s), Refills(s) 3, Pharmacy: [facility]/pharmacy #[id number], 162, cm, 01/04/23 9:06:00 EST, Height/Length Dosing, 100.5, kg, 01/04/23 9:06:00 EST, Weight Dosing Start Date: 02/13/23 Status: Ordered prazosin 5 mg oral capsule (20 sources) [...] above: Take 0.25 mg by mout h. sAXagliptin 5 mg oral tablet (20 sources) Dipeptidyl Peptidase 4 Inhibitor Start: 02-11-2024 End: 05-19-2024 take 1 tablet by mouth once daily sAXagliptin (Onglyza) 5 MG tablet Indications: Type 2 diabetes mellitus with hyperglycemia, without long-term current use of insulin ([facility]) TAKE 1 TABLET BY MOUTH EVERY DAY 90 tablet 3 05/07/2024 05/19/2024 Discontinued 0.25 mg, 0.5 mg dose 1.5 ml semaglutide 1.34 mg/ml pen injector (6 sources) Start: 10-10-2023 End: 11-07-2023 semaglutide (Ozempic, 0.25 or 0.5 MG/DOSE,) 2 MG/1.5ML solution pen-injector Indications: Type 2 diabetes mellitus with hyperglycemia, without long-term current use of insulin ([facility]) 0.25 mg SC weekly x 4 weeks, then 0.5 mg weekly 1 each 3 10/10/2023 11/07/2023 Discontinued (Therapy completed) SITagliptin 100 mg oral tablet (20 sources) Dipeptidyl Peptidase 4 Inhibitor Start: 11-23-2020 End: 12-05-2024 take 1 tablet by mouth once daily SITagliptin (Januvia) 100 MG tablet Indications: Type 2 diabetes mellitus with hyperglycemia, without long-term current use of insulin ([facility]) Take 1 tablet (100 mg) by mouth Daily 90 tablet 3 05/19/2024 08/11/2024 Discontinued Comment on above: Take 100 mg by mouth as needed. Take 1 tablet by shaji once daily. spironolactone 50 mg oral tablet (6 sources) [...] sources) Serotonin-1b and Serotonin-1d Receptor Agonist End: 11-02-19 take 2 tablets by mouth once as needed SUMAtriptan (IMITREX) 50 MG tablet Take 100 mg by mouth once as needed for Migraine 0 11/01/2020 Discontinued (Therapy completed) 60 actuat tiotropium 0.53986 mg/actuat inhalation spray (20 sources) Anticholinergic Start: 12-24-19 End: 09-09-19 Tiotropium [place] (Spiriva Respimat) 1.25 mcg/actuation mist Discontinued INHALATION December 24, 2023 1:00am September 08, 2024 11:48am Start: 11-07-2023 End: 11-06-2024 tiotropium (Spiriva Respimat ) 1.25 MCG/ACT inhaler Indications: Severe persistent asthma with (acute) exacerbation (HCC) Inhale 2 puffs Daily 1 each 11/07/2023 08/11/2024 Discontinued tiZANidine 4 mg oral tablet (4 sources) Central alpha-2 Adrenergic Agonist Start: 06-13-2020 End: 05-20-2021 take 1 tablet by mouth every eight hours as needed for pain tiZANidine (ZANAFLEX) 4 MG tablet Take 1 tablet by mouth every 8 hours as needed (Back pain) 10 tablet 0 06/13/2020 05/20/2021 Discontinued (LIST CLEANUP) triamcinolone acetonide 1 mg/ml topical cream (20 sources) Corticosteroid Start: 07-10-2023 End: 07-08-2024 triamcinolone (Kenalog) 0.1 % cream Indications: Other specified dermatitis Apply to affected areas, up to twice a day when flared, do not use one the face, groin, or underarms, 30 day supply 80 g 11 07/10/2023 07/08/2024 Discontinued (Reorder) Zinc (20 sources) End: 10-02-2022 Zinc 50 mg tab Take by mouth. 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] Onset: 3 Episodic Other and unspecified benign neoplasm (2 sources) Benign lipomatous tumor; Translations: [Benign lipomatous neoplasm, unspecified] Onset: 3 Episodic Other and unspecified benign neoplasm (2 sources) Lipoma (clinical) 09-05-2022 Episodic Other and unspecified benign neoplasm (2 sources) Melanocytic nevus of trunk; Translations: [Melanocytic nevi of trunk] 07-08-2024 Episodic Other and unspecified benign neoplasm (2 sources) Dermatofibroma of right upper limb; Translations: [Other benign neoplasm of skin of right upper limb, including shoulder] 07-08-2024 Episodic Other bone disease and musculoskeletal deformities [...] pain; Translations: [Myalgia, unspecified site] Episodic Other connective tissue disease (9 sources) Pain of right forearm; Translations: [Pain in right forearm] Onset: 5 09-25-2024 Episodic Other diseases of bladder and urethra (3 sources) Male urethral stricture; Translations: [Unspecified urethral stricture, male, unspecified site] Onset: 2 Episodic Other ear and sense organ disorders (20 sources) Hearing loss; Translations: [Unspecified hearing loss, unspecified ear] Onset: 6 01-12-2023 Chronic Other endocrine disorders (19 sources) Polycystic ovary syndrome; Translations: [Polycystic ovarian syndrome] Onset: 5 11-20-2023 Chronic Other female genital disorders (20 sources) Pain in female genitalia on intercourse; Translations: [Unspecified dyspareunia] Onset: 3 12-16-2021 Chronic Other gastrointestinal disorders (20 sources) Irritable bowel syndrome; Translations: [Irritable bowel syndrome without diarrhea] Onset: 6 01-12-2023 Chronic Other gastrointestinal disorders (1 source) Celiac disease; Translations: [Celiac disease] 09-30-2024 Chronic Other hereditary and degenerative nervous system [...] Onset: 2 Chronic Other infections; including parasitic (19 sources) Post-viral disorder; Translations: [Sequelae of other specified infectious and parasitic diseases] Onset: 2 02-10-2021 Chronic Other infections; including parasitic (9 sources) Personal history of other infectious and parasitic diseases; Translations: [History of COVID-19] Episodic Other injuries and conditions due to external causes (1 source) Angioedema; Translations: [Angioneurotic edema, initial encounter] Episodic Other injuries and conditions due to external causes (4 sources) Allergic reaction; Translations: [Allergy, unspecified, subsequent encounter] 11-07-2023 Episodic Other injuries and conditions due to external causes (4 sources) Injury of right forearm; Translations: [Unspecified injury of right forearm, initial encounter] 09-08-2024 Episodic Other injuries and conditions due to external causes (1 source) Unspecified injury of right forearm, initial encounter; Translations: [Unspecified injury of right forearm, initial encounter] Onset: 5 Episodic Other lower respiratory disease (7 sources) Dyspnea; Translations: [Shortness of breath] Episodic Other lower respiratory disease (6 sources) Chronic cough; Translations: [Chronic cough] Episodic Other lower respiratory disease (6 sources) Dyspnea on exertion; Translations: [Other forms of dyspnea] Episodic Other lower respiratory disease (6 sources) Orthopnea; Translations: [Orthopnea] Episodic Other lower respiratory disease (2 sources) Respiratory tract infection; Translations: [Other specified respiratory disorders] 12-24-2023 Episodic Other nervous system disorders (20 sources) [...] Translations: [Pain in unspecified joint] Episodic Other non-traumatic joint disorders (9 sources) Pain of right wrist; Translations: [Pain in right wrist] Onset: 5 09-25-2024 Episodic Other nutritional; endocrine; and metabolic disorders [...] Chronic Other nutritional; endocrine; and metabolic disorders (20 sources) Severe obesity; Translations: [Class 2 severe obesity due to excess calories with serious comorbidity and body mass index (BMI) of 37.0 to 37.9 in adult ([facility])] Onset: 5 02-11-2024 Chronic Other [...] 6 04-09-2023 Chronic Other upper respiratory disease (2 sources) Seasonal allergy; Translations: [Other seasonal allergic rhinitis] 12-24-2023 Chronic Other upper respiratory disease (1 source) Cyst of maxillary sinus; Translations: [Cyst and mucocele of nose and nasal sinus] Episodic Other upper respiratory disease (1 source) Hoarse; Translations: [Dysphonia] Episodic Other upper respiratory disease (3 sources) Vocal cord dysfunction; Translations: [Other diseases of vocal cords] 11-07-2023 Episodic Other upper respiratory infections (10 sources) Chronic sinusitis; Translations: [Chronic sinusitis, unspecified] Onset: 6 09-08-2023 Chronic Residual codes; unclassified (20 sources) Obstructive sleep apnea syndrome; Translations: [Obstructive sleep apnea (adult) (pediatric)] Onset: 1 Chronic Residual codes; unclassified (1 source) Sleep paralysis; Translations: [Other sleep disorders] Chronic Residual codes; unclassified (1 source) Poor sleep pattern; Translations: [Other sleep disorders] Chronic Residual codes; unclassified (2 sources) Hypersomnia, unspecified; Translations: [Hypersomnia, unspecified] Onset: 2 Chronic Residual codes; unclassified (2 sources) Sleep apnea, unspecified; Translations: [Sleep apnea, unspecified] Onset: 2 Chronic Residual codes; unclassified (1 source) Obstructive sleep apnea (adult) (pediatric); Translations: [Obstructive sleep apnea (adult) (pediatric)] Onset: 1 Chronic Residual codes; unclassified (1 source) Unable to comply with treatment; Translations: [Patient's other noncompliance with medication regimen] Episodic Residual codes; unclassified (1 source) Did not attend; Translations: [No-show for appointment] Episodic Residual codes; unclassified (3 sources) Insomnia; Translations: [Insomnia, unspecified] 12-22-2022 Episodic Residual codes; unclassified (1 source) Peripheral edema 12-22-2022 Episodic Residual codes; unclassified (2 sources) Edema; Translations: [Edema, unspecified] 08-22-2024 Episodic Residual codes; unclassified (3 sources) Edema, unspecified; Translations: [Edema, unspecified] Onset: 5 Episodic Screening and history of mental health and substance abuse codes (1 source) History of post-traumatic stress disorder; Translations: [Personal history of other mental and behavioral disorders] Episodic Sprains and strains (1 source) Low back strain; Translations: [Strain of muscle, fascia and tendon of lower back, initial encounter] Episodic Systemic lupus erythematosus and connective tissue disorders (1 source) Systemic lupus erythematosus; Translations: [Systemic lupus erythematosus, unspecified] 09-30-2024 Chronic Thyroid disorders (20 sources) Hypothyroidism, unspecified; Translations: [...] [Post covid-19 condition, unspecified] Onset: 2 Unclassified (2 sources) 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; Translations: [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] Onset: 2 Unclassified (2 sources) Chronic rhinosinusitis 09-25-2024 Unclassified (1 source) Qualitative platelet disorder Onset: 5 Past or Other Problems Problem Classification Problem Date Documented Date Episodic/Chronic Abdominal hernia (20 sources) Right inguinal hernia ; Translations: [Unilateral inguinal hernia, without obstruction or gangrene, not specified as recurrent] Onset: 01-12-2023 12-16-2021 Episodic Abdominal pain (20 sources) Right lower quadrant pain; Translations: [Right lower quadrant pain] Onset: 12-30-2011 Resolved: 01-16-2023 Episodic Administrative/social admission (2 sources) Encounter for pre-employment examination; Translations: [Encounter for pre-employment examination] Onset: 12-27-2023 Episodic Allergic reactions (20 sources) Urticaria; Translations: [...] (female) (male); Translations: [Genuine stress incontinence] Onset: 11-16-2022 Resolved: 04-09-2023 Chronic Genitourinary symptoms and ill-defined [...] malaise] Onset: 03-02-2021 05-24-2021 Episodic Mood disorders (19 sources) Mood disorders Onset: 01-04-2023 01-04-2023 Nonmalignant [...] 03-02-2021 01-12-2023 Episodic Other connective tissue disease (2 sources) Other muscle spasm; Translations: [Other muscle spasm] Onset: 03-02-2021 Episodic Other connective tissue disease (20 sources) Unspecified symptoms and signs involving the nervous system; Translations: [Other symptoms involving nervous and musculoskeletal systems] Onset: 03-02-2021 03-02-2021 Episodic Other diseases of bladder and urethra (20 sources) Urethral stricture; Translations: [Unspecified urethral stricture, male, unspecified site] Onset: 01-12-2023 02-27-2022 Episodic Other endocrine disorders (19 sources) Disorder of endocrine system; Translations: [Endocrine disorder, unspecified] Onset: 04-30-2024 11-20-2023 Episodic Other nervous system disorders (20 sources) Word finding difficulty ; Translations: [Other speech disturbances] Onset: 03-02-2021 01-12-2023 Episodic Other nervous system disorders (2 sources) Other speech disturbances; Translations: [Other speech disturbances] Onset: 03-02-2021 Episodic Other nervous system disorders (20 sources) Impaired cognition; Translations: [Other symptoms and signs involving cognitive functions and awareness] Onset: 03-02-2021 03-02-2021 Episodic Other nervous system disorders (1 source) Other symptoms and signs involving cognitive functions and awareness; Translations: [Other symptoms and signs involving cognitive functions and awareness] Onset: 03-02-2021 Episodic Other screening for suspected [...] Onset: 04-09-2023 04-09-2023 Episodic Residual codes; unclassified (2 sources) Other amnesia; Translations: [Other amnesia] Onset: 03-02-2021 Episodic Spondylosis; intervertebral disc disorders; other back problems (20 sources) Pain in thoracic spine; Translations: [Neck pain] Onset: 03-02-2021 01-12-2023 Episodic Syncope (20 sources) Near syncope; Translations: [Syncope and collapse] Onset: 05-24-2022 Resolved: 01-16-2023 Episodic Unclassified (1 source) LOW BACK PAIN, UNSPECIFIED; Translations: [LOW BACK PAIN, UNSPECIFIED] Onset: 02-15-2022 Viral infection (20 sources) Disease caused by 2019-nCoV; Translations: [COVID-19] Onset: 12-24-2020 Resolved: 08-11-2024 Episodic Results Test Name Value Interpretation Reference Range Facility CBC W Auto Differential pane l (Bld)on 09-30-2024 Basophils (Bld) [#/Vol] 0.06 10*3/uL Normal <0.11 [facility] Comment on above: Order Comment: Speci men Type: BLOOD SPECIMEN Ordering Facility: [facility] Address: [address] [place] [address] Performed By: #### 5 7021-8 #### [facility] CLIA [id number] [address] [place] [address] 06429 Basophils/100 WBC (Bld) 0.6 % Normal [facility] Comment on above: Order Comment: Speci men Type: BLOOD SPECIMEN Ordering Facility: [facility] Address: [address] [place] [address] Performed By: #### 5 7021-8 #### [facility] CLIA [id number] [address] [place] [address] 87906 Differential cell count method Nom (Bld) Auto Normal [facility] Comment on above: Order Comment: Speci men Type: BLOOD SPECIMEN Ordering Facility: [facility] Address: [address] [place] [address] Performed By: #### 5 7021-8 #### [facility] CLIA [id number] [address] [place] [address] 49751 Eosinophils (Bld) [#/Vol] 0.09 10*3/uL Normal <0.46 [facility] Comment on above: Order Comment: Speci men Type: BLOOD SPECIMEN Ordering Facility: [facility] Address: [address] [place] [address] Performed By: #### 5 7021-8 #### [facility] CLIA [id number] [address] [place] [address] 98956 Eosinophils/100 WBC (Bld) 0.9 % Normal [facility] Comment on above: Order Comment: Speci men Type: BLOOD SPECIMEN Ordering Facility: [facility] Address: [address] [place] [address] Performed By: #### 5 7021-8 #### [facility] CLIA [id number] [address] [place] [address] 14190 Erythrocyte distribution width (RBC) [Ratio] 11.9 % Normal 11.5-15.0 [facility] Comment on above: Order Comment: Speci men Type: BLOOD SPECIMEN Ordering Facility: [facility] Address: [address] [place] [address] Performed By: #### 5 7021-8 #### [facility] CLIA [id number] [address] [place] [address] Hematocrit (Bld) [Volume fraction] 41.8 % Normal 36.0-46.0 [facility] Comment on above: Order Comment: Speci men Type: BLOOD SPECIMEN Ordering Facility: [facility] Address: [address] [place] [address] Performed By: #### 5 7021-8 #### [facility] CLIA [id number] [address] [place] [address] 58085 Hemoglobin (Bld) [Mass/Vol] 14.1 g/dL Normal 11.5-15.5 [facility] Comment on above: Order Comment: Speci men Type: BLOOD SPECIMEN Ordering Facility: [facility] Address: [address] [place] [address] Performed By: #### 5 7021-8 #### [facility] CLIA [id number] [address] [place] [address] 19630 Immature granulocytes (Bld) [#/Vol] 0.11 10*3/uL High <0.10 [facility] Comment on above: Order Comment: Speci men Type: BLOOD SPECIMEN Ordering Facility: [facility] Address: [address] [place] [address] Performed By: #### 5 7021-8 #### [facility] CLIA [id number] [address] [place] [address] 30180 Immature granulocytes/100 WBC (Bld) 1.1 % Normal [facility] Comment on above: Order Comment: Speci men Type: BLOOD SPECIMEN Ordering Facility: [facility] Address: [address] [place] [address] Performed By: #### 5 7021-8 #### [facility] CLIA [id number] [address] [place] [address] 64851 Lymphocytes (Bld) [#/Vol] 2.18 10*3/uL Normal 1.00-4.00 [facility] Comment on above: Order Comment: Speci men Type: BLOOD SPECIMEN Ordering Facility: [facility] Address: [address] [place] [address] Performed By: #### 5 7021-8 #### [facility] CLIA [id number] [address] [place] [address] 34292 Lymphocytes/100 WBC (Bld) 22.2 % Normal [facility] Comment on above: Order Comment: Speci men Type: BLOOD SPECIMEN Ordering Facility: [facility] Address: [address] [place] [address] Performed By: #### 5 7021-8 #### [facility] CLIA [id number] [address] [place] [address] 35176 MCH (RBC) [Entitic mass] 29.7 pg Normal 26.0-34.0 [facility] Comment on above: Order Comment: Speci men Type: BLOOD SPECIMEN Ordering Facility: [facility] Address: [address] [place] [address] Performed By: #### 5 7021-8 #### [facility] CLIA [id number] [address] [place] [address] 20164 MCHC (RBC) [Mass/Vol] 33.7 g/dL Normal 30.5-36.0 [facility] Comment on above: Order Comment: Speci men Type: BLOOD SPECIMEN Ordering Facility: [facility] Address: [address] [place] [address] Performed By: #### 5 7021-8 #### [facility] CLIA [id number] [address] [place] [address] 12421 MCV (RBC) [Entitic vol] 88.0 fL Normal 80.0-100.0 [facility] Comment on above: Order Comment: Speci men Type: BLOOD SPECIMEN Ordering Facility: [facility] Address: [address] [place] [address] Performed By: #### 5 7021-8 #### [facility] CLIA [id number] [address] [place] [address] 86328 Monocytes (Bld) [#/Vol] 0.34 10*3/uL Normal <0.87 [facility] Comment on above: Order Comment: Speci men Type: BLOOD SPECIMEN Ordering Facility: [facility] Address: [address] [place] [address] Performed By: #### 5 7021-8 #### [facility] CLIA [id number] [address] [place] [address] Monocytes/100 WBC (Bld) 3.5 % Normal [facility] Comment on above: Order Comment: Speci men Type: BLOOD SPECIMEN Ordering Facility: [facility] Address: [address] [place] [address] Performed By: #### 5 7021-8 #### [facility] CLIA [id number] [address] [place] [address] 65745 Neutrophils (Bld) [#/Vol] 7.06 10*3/uL Normal 1.45-7.50 [facility] Comment on above: Order Comment: Speci men Type: BLOOD SPECIMEN Ordering Facility: [facility] Address: [address] [place] [address] Performed By: #### 5 7021-8 #### [facility] CLIA [id number] [address] [place] [address] 37686 Neutrophils/100 WBC (Bld) 71.7 % Normal [facility] Comment on above: Order Comment: Speci men Type: BLOOD SPECIMEN Ordering Facility: [facility] Address: [address] [place] [address] Performed By: #### 5 7021-8 #### [facility] CLIA [id number] [address] [place] [address] 88117 Nucleated RBC (Bld) [#/Vol] 10*3/uL Normal <0.01 [facility] Comment on above: Order Comment: Speci men Type: BLOOD SPECIMEN Ordering Facility: [facility] Address: [address] [place] [address] Performed By: #### 5 7021-8 #### [facility] CLIA [id number] [address] [place] [address] Nucleated RBC/100 WBC (Bld) [Ratio] 0.0 /100 WBC Normal [facility] Comment on above: Order Comment: Speci men Type: BLOOD SPECIMEN Ordering Facility: [facility] Address: [address] [place] [address] Performed By: #### 5 7021-8 #### [facility] CLIA [id number] [address] [place] [address] 30861 Platelet mean volume (Bld) [Entitic vol] 9.8 fL Normal 9.0-12.7 [facility] Comment on above: Order Comment: Speci men Type: BLOOD SPECIMEN Ordering Facility: [facility] Address: [address] [place] [address] 85[address] Performed By: #### 5 7021-8 #### [facility] CLIA [id number] [address] [place] [address] 63104 Platelets (Bld) [#/Vol] 254 10*3/uL Normal 150-400 [facility] Comment on above: Order Comment: Speci men Type: BLOOD SPECIMEN Ordering Facility: [facility] Address: [address] [place] [address] 8[address] Performed By: #### 5 7021-8 #### [facility] CLIA [id number] [address] [place] [address] 76378 RBC (Bld) [#/Vol] 4.75 10*6/uL Normal 3.90-5.20 [facility] Comment on above: Order Comment: Speci men Type: BLOOD SPECIMEN Ordering Facility: [facility] Address: [address] [place] [address] Performed By: #### 5 7021-8 #### [facility] CLIA [id number] [address] [place] [address] 28279 WBC (Bld) [#/Vol] 9.84 10*3/uL Normal 3.70-11.00 [facility] Comment on above: Order Comment: Speci men Type: BLOOD SPECIMEN Ordering Facility: [facility] Address: [address] [place] [address] Performed By: #### 5 7021-8 #### [facility] CLIA [id number] [address] [place] [address] 73684 [facility] CBC W AUTO DIFF BLDon Basophils/100 WBC (Bld) 0.6 % [facility] BASOPHILS # BLD AUTO 0.06 [facility] DIFFERENTIAL METHOD BLD Auto [facility] EOSINOPHIL # BLD AUTO 0.09 [facility] LYMPHOCYTES # BLD AUTO 2.18 [facility] MONOCYTES # BLD AUTO 0.34 [facility] NEUTROPHILS # BLD AUTO 7.06 [facility] NRBC # BLD AUTO <0.01 [facility] NRBC/100 WBC BLD-RTO 0 /100 WBC [facility] PLATELET # BLD AUTO 254 [facility] PMV BLD AUTO 9.8 fL 9.0 - 12.7 fL [facility] WBC # BLD AUTO 9.84 [facility] Eosinophils/100 WBC (Bld) 0.9 % [facility] Erythrocyte distribution width (RBC) [Ratio] 11.9 % 11.5 - 15.0 % [facility] Hematocrit (Bld) [Volume fraction] 41.8 % 36.0 - 46.0 % [facility] Hemoglobin (Bld) [Mass/Vol] 14.1 g/dL 11.5 - 15.5 g/dL [facility] IMM GRANULOCYTES # BLD AUTO 0.11 [facility] IMM GRANULOCYTES/LEUK NFR BLD AUTO 1.1 % [facility] Interpretation and review of laboratory results Abnormal [facility] Lymphocytes/100 WBC (Bld) 22.2 % [facility] MCH (RBC) [Entitic mass] 29.7 pg 26.0 - 34.0 pg [facility] MCHC (RBC) [Mass/Vol] 33.7 g/dL 30.5 - 36.0 g/dL [facility] MCV (RBC) [Entitic vol] 88 fL 80.0 - 100.0 fL [facility] Monocytes/100 WBC (Bld) 3.5 % [facility] Neutrophils/100 WBC (Bld) 71.7 % [facility] RBC (Bld) [#/Vol] 4.75 10*6/uL 3.90 - 5.2 0 m/uL [facility] Specimen Type: BLOOD SPECIMEN Ordering Facility: [facility] Address: [address] [place] [id number] Original Ordering Provider: [facility] CNOVSPon 09-30-2024 CNOVSP Visit (SP) Office ([place]) LEANA TRAN ([id number]) 1985 F Date Time Provider Department 09/30/24 9:30 AM MARGOT LIMON During your visit today, we recorded the following information about you: Temperature Pulse Respiration Blood pressure 97.5 degrees 70/minute 16/minute 129/80 Weight Height 104.3 kg 1.626 m Margot Limon APRN.FOOD EDITOR 09/30/2024 10:24 AM Signed NAME: Leana Tran CLINIC NO.: [id number] DATE OF SERVICE: September 30, 2024 (Sonam) Some elements in this clinic note that are critical to medical decision making have been carefully reviewed and included from a prior clinic note dated: October 01, 2023 (Munir) Additional Clinicians involved in Leana Tran's [...] (COVID-19) (Z86.16) 8. Status post hysterectomy (Z90.710) - CASE HISTORY: Reverse Chronological Order July 2021, [...] a during her third and reports that th (more content not included)... Normal [facility] Comprehensive metabolic 2000 panelon 09-30-2024 Albumin [Mass/Vol] 4.5 g/dL Normal 3.9-4.9 [facility] Comment on above: Order Comment: Dulce Maria jules Type: BLOOD SPECIMEN Ordering Facility: [facility] Address: [address] [place] [address] Performed By: #### 2 4323-8 #### [facility] CLIA [id number] [address] [place] [address] 13753 ALP [Catalytic activity/Vol] 74 U/L Normal 34-123 [facility] Comment on above: Order Comment: Dulce Maria jules Type: BLOOD SPECIMEN Ordering Facility: [facility] Address: [address] [place] [address] Performed By: #### 2 4323-8 #### [facility] CLIA [id number] [address] [place] [address] 79834 ALT [Catalytic activity/Vol] 15 U/L Normal 7-38 [facility] Comment on above: Order Comment: Speci men Type: BLOOD SPECIMEN Ordering Facility: [facility] Address: [address] [place] [address] Performed By: #### 2 4323-8 #### [facility] CLIA [id number] [address] [place] [address] 50463 Anion gap [Moles/Vol] 10 mmol/L Normal 8-15 [facility] Comment on above: Order Comment: Speci men Type: BLOOD SPECIMEN Ordering Facility: [facility] Address: [address] [place] [address] Performed By: #### 2 4323-8 #### [facility] CLIA [id number] [address] [place] [address] 10375 AST [Catalytic activity/Vol] 10 U/L Low 13-35 [facility] Comment on above: Order Comment: Speci men Type: BLOOD SPECIMEN Ordering Facility: [facility] Address: [address] [place] [address] Performed By: #### 2 4323-8 #### [facility] CLIA [id number] [address] [place] [address] 19623 Bilirubin [Mass/Vol] 0.3 mg/dL Normal 0.2-1.3 [facility] Comment on above: Order Comment: Speci men Type: BLOOD SPECIMEN Ordering Facility: [facility] Address: [address] [place] [address] Performed By: #### 2 4323-8 #### [facility] CLIA [id number] [address] [place] [address] 71507 Calcium [Mass/Vol] 9.7 mg/dL Normal 8.5-10.2 [facility] Comment on above: Order Comment: Speci men Type: BLOOD SPECIMEN Ordering Facility: [facility] Address: [address] [place] [address] Performed By: #### 2 4323-8 #### [facility] CLIA [id number] [address] [place] [address] Chloride [Moles/Vol] 104 mmol/L Normal 98-107 [facility] Comment on above: Order Comment: Speci men Type: BLOOD SPECIMEN Ordering Facility: [facility] Address: [address] [place], [place] [address] Performed By: #### 2 4323-8 #### [facility] CLIA [id number] [address] [place] [address] 72480 CO2 [Moles/Vol] 25 mmol/L Normal 22-30 [facility] Comment on above: Order Comment: Speci men Type: BLOOD SPECIMEN Ordering Facility: [facility] Address: [address] [place] [address] Performed By: #### 2 4323-8 #### [facility] CLIA [id number] [address] [place] [address] 94307 Creatinine [Mass/Vol] 0.97 mg/dL High 0.58-0.96 [facility] Comment on above: Order Comment: Speci men Type: BLOOD SPECIMEN Ordering Facility: [facility] Address: [address] [place] [address] Performed By: #### 2 4323-8 #### [facility] CLIA [id number] [address] [place] [address] 73742 eGFRcr SerPlBld CKD-EPI 2020 76 mL/min/1.73m??? Normal >=60 [facility] Comment on above: Order Comment: Speci men Type: BLOOD SPECIMEN Ordering Facility: [facility] Address: [address] [place] [address] Result Comment: Maricarmen mated Glomerular Filtration Rate [...] GFR. Performed By: #### 2 4323-8 #### [facility] CLIA [id number] [address] [place] [address] Glucose [Mass/Vol] 145 mg/dL High 74-99 [facility] Comment on above: Order Comment: Dulce Maria jules Type: BLOOD SPECIMEN Ordering Facility: [facility] Address: [address] [place] [address] Result Comment: The [place] [employer] (ADA) provides guidance for cutoff [...] Standards of Medical Care in Diabetes 2016, [place] [employer]. Diabetes Care. 2016.39(Suppl 1). Performed By: #### 2 4323-8 #### [facility] CLIA [id number] [address] [place] [address] Potassium [Moles/Vol] 3.6 mmol/L Low 3.7-5.1 [facility] Comment on above: Order Comment: Dulce Maria jules Type: BLOOD SPECIMEN Ordering Facility: [facility] Address: [address] [place], [place] [address] Performed By: #### 2 4323-8 #### [facility] CLIA [id number] [address] [place] [address] 35088 Protein [Mass/Vol] 6.7 g/dL Normal 6.3-8.0 [facility] Comment on above: Order Comment: Dulce Maria jules Type: BLOOD SPECIMEN Ordering Facility: [facility] Address: [address] [place], [place] [address] Performed By: #### 2 4323-8 #### [facility] CLIA [id number] [address] [place] [address] 08771 Sodium [Moles/Vol] 139 mmol/L Normal 136-144 [facility] Comment on above: Order Comment: Speci men Type: BLOOD SPECIMEN Ordering Facility: [facility] Address: [address] [place], [place] [address] Performed By: #### 2 4323-8 #### [facility] CLIA [id number] [address] [place] [address] Urea nitrogen [Mass/Vol] 19 mg/dL Normal 7-21 [facility] Comment on above: Order Comment: Speci men Type: BLOOD SPECIMEN Ordering Facility: [facility] Address: [address] [place] [address] Performed By: #### 2 4323-8 #### [facility] CLIA [id number] [address] [place] [address]661 No Panel InformationOrdered By: Radiologist Radiology on 09-29-2024 [facility] [employer] Work Phone: No Panel Informationon 09-29 Radiology Study observation (narrative) [facility] XR Elbow - right 2 Viewson 0 09-29-[address] [address] XRay Report Signed Patient: LEANA RTAN MR#: [id number] : 1985 Acct:[id number] Age/Sex: 38 / F ADM Date: 09/29/24 Loc: LAB Attending Dr: Cas Dowell M.D. Ordering Physician: Cas Dowell M.D. Date of Service: 09/29/24 Procedure(s): XR elbow RT 2V Accession Number(s): [id number] cc: Cas Dowell M.D. [address] [address] Patient Name: LEANA TRAN MRN: [id number] date: 1985 Sex: F Assigned Patient Location: LAB Current Patient Location: LAB Accession/Order Number: [id number] Exam Date: 09/29/2024 13:00 Report Date: 09/29/2024 [...] Jr., D.O. 09/29/2024 1:44 PM Dictation Location: [place] [address] Electronically authenticated by: [id number] Y Date: 09/29/2024 13:44 Dictated By: Michael Price M.D. Signed By: 09/29/24 1346 DD/ 1344 TD/TT: Laboratory Engineer: [facility] Radiology, Radiologist, - 09/29/2024 [place] [address] XRay Report Signed Patient: LEANA TRAN MR#: [id number] : 1985 Acct:[id number] Age/Sex: 38 / F ADM Date: 09/29/24 Loc: LAB Attending Dr: Cas Dowell M.D. Ordering Physician: Cas Dowell M.D. Date of Service: 09/29/24 Procedure(s): XR elbow RT 2V Accession Number(s): [id number] cc: Cas Dowell M.D. [place] [address] Patient Name: LEANA TRAN MRN: [facility]:[id number] date: 1985 Sex: F Assigned Patient Location: LAB Current Patient Location: LAB Accession/Order Number: [id number] Exam Date: 09/29/2024 13:00 Report Date: 09/29/2024 [...] Jr., D.O. 09/29/2024 1:44 PM Dictation Location: RADIO-PC-23 Electronically authenticated by: [id number] Y Date: 09/29/2024 13:44 Dictated By: Michael Price M.D. Signed By: 09/29/241345 DD/ 43 TD/TT: Laboratory Engineer: [facility] Radiology Study observation (narrative) [facility] XR Radius and Ulna - right 2 Viewson 09-29-2024 [place] [address] XRay Report Signed Patient: LEANA TRAN MR#: [id number] : 1985 Acct:[id number] Age/Sex: 38 / F ADM Date: 09/29/24 Loc: LAB Attending Dr: Cas Dowell M.D. Ordering Physician: Cas Dowell M.D. Date of Service: 09/29/24 Procedure(s): XR forearm RT 2V Accession Number(s): [id number] cc: Cas Dowell M.D. [place] [address] Patient Name: LEANA TRAN MRN: [facility]:[id number] date: 1985 Sex: F Assigned Patient Location: LAB Current Patient Location: LAB Accession/Order Number: [id number] Exam Date: 09/29/2024 13:00 Report Date: 09/29/2024 13:43 At the request of: CAS DOWELL MD Procedure: XR forearm RT 2V RIGHT FOREARM - 2 views CLINICAL HISTORY: Fall. Arm pain COMPARISON: None FINDINGS: No focal soft tissue abnormality. No acute bony process. XR/XR forearm RT 2V IMPRESSION: NO ACUTE BONY PROCESS. Impression dictated by: Michael Price Jr., D.O. 09/29/2024 1:43 PM Dictation Location: RADIO-PC-23 Electronically authenticated by: [id number] Y Date: 09/29/2024 13:43 Dictated By: Michael Price M.D. Signed By: 09/29/241345 DD/ 42 TD/TT: Laboratory Engineer: [facility] Radiology, Radiologist, MD - 09/29/2024 [place] [address] XRay Report Signed Patient: LEANA TRAN MR#: [id number] : 1985 Acct:[id number] Age/Sex: 38 / F ADM Date: 09/29/24 Loc: LAB Attending Dr: Cas Dowell M.D. Ordering Physician: Cas Dowell M.D. Date of Service: 09/29/24 Procedure(s): XR forearm RT 2V Accession Number(s): [id number] cc: Cas Dowell M.D. [place] [address] Patient Name: LEANA TRAN MRN: [id number]:[id number] date: 1985 Sex: F Assigned Patient Location: LAB Current Patient Location: LAB Accession/Order Number: [id number] Exam Date: 09/29/2024 13:00 Report Date: 09/29/2024 13:43 At the request of: CAS DOWELL MD Procedure: XR forearm RT 2V RIGHT FOREARM - 2 views CLINICAL HISTORY: Fall. Arm pain COMPARISON: None FINDINGS: No focal soft tissue abnormality. No acute bony process. XR/XR forearm RT 2V IMPRESSION: NO ACUTE BONY PROCESS. Impression dictated by: Michael Price Jr., D.O. 09/29/2024 1:43 PM Dictation Location: [place] [address] Electronically authenticated by: [id number] Y Date: 09/29/2024 13:43 Dictated By: Michael Price M.D. Signed By: 09/29/24 1346 DD/ 1343 TD/TT: Laboratory Engineer: [facility] XR Wrist - right 2 Viewson 0 09-29-[address] [address] XRay Report Signed Patient: LEANA TRAN MR#: [id number] : 1985 Acct:[id number] Age/Sex: 38 / F ADM Date: 09/29/24 Loc: LAB Attending Dr: Cas Dowell M.D. Ordering Physician: Cas Dowell M.D. Date of Service: 09/29/24 Procedure(s): XR wrist RT 2V Accession Number(s): [id number] cc: Cas Dowell M.D. [address] [address] Patient Name: LEANA TRAN MRN: [facility]:[id number] date: 1985 Sex: F Assigned Patient Location: LAB Current Patient Location: LAB Accession/Order Number: [id number] Exam Date: 09/29/2024 13:00 Report Date: 09/29/2024 [...] Jr., D.O. 09/29/2024 1:43 PM Dictation Location: [place] [address] Electronically authenticated by: [id number] Y Date: 09/29/2024 13:43 Dictated By: Michael Price M.D. Signed By: 09/29/24 1345 DD/ 1343 TD/TT: Laboratory Engineer: [facility] Radiology, Radiologist, MD - 09/29/2024 The [place] [id number] XRay Report Signed Patient: LEANA TRAN MR#: [id number] : 1985 Acct:[id number] Age/Sex: 38 / F ADM Date: 09/29/24 Loc: LAB Attending Dr: Cas Dowell M.D. Ordering Physician: Cas Dowell M.D. Date of Service: 09/29/24 Procedure(s): XR wrist RT 2V Accession Number(s): [id number] cc: Cas Dowell M.D. [address] [address] Patient Name: LEANA TRAN MRN: [id number] date: 1985 Sex: F Assigned Patient Location: LAB Current Patient Location: LAB Accession/Order Number: [id number] Exam Date: 09/29/2024 13:00 Report Date: 09/29/2024 [...] PROCESS. Impression dictated by: Michael Price Jr., DMike 09/29/2024 1:43 PM Dictation Location: [place] [address] Electronically authenticated by: [id number] Y Date: 09/29/2024 13:43 Dictated By: Michael Price M.D. Signed By: 09/29/24 1345 DD/ 1343 TD/TT: Laboratory Engineer: [employer] XR Wrist - right 2 ViewsOrde red By: Radiologist Radiology on 09-29-2024 [employer] Work Phone: Orders Onlyon 09-24-2024 Orders Only [id number] Leana Tran 1985 F Date Provider Department Center 09/24/2024 KENYA ORTIZ [facility] Family History Problem Relation Age of Onset Other Mother Hypertension Mother Heart failure Mother Diabetes Mother Skin cancer Mother Coronary artery disease Mother Heart attack Mother Comments: 52 Heart disease Mother Kidney disease Mother Stroke Mother Diabetes type II Mother Asthma Mother Cancer Mother Hyperlipidemia Mother Heart disease Father Comments: 57 Heart attack Father Heart murmur Father Heart failure Father Hyperlipidemia Father Diabetes type II Sister Hypertension Sister Cesar's thyroiditis Mother's Sister Aortic aneurysm Maternal Grandmother Comments: 60 Cancer Maternal Grandmother Other Son Fainting Son Asthma Son Cancer Maternal Grandfather Cancer Paternal Grandmother Stroke Mother's Sister Thyroid disease Mother's Sister Stroke Mother's Sister Thyroid disease Mother's Sister Family Status - Relation Status Age at Mother Father Sister Mother's Sister Maternal Grandmother Alive Son Alive Son Alive Son Alive Maternal Grandfather Alive Paternal Grandmother Alive Mother's Sister Alive Mother's Sister Alive Mother's Sister Alive Mother's Sister Alive Normal [facility] Reminderson 09-17-2024 Reminders Reminders - From: CHELO Choe APRN, [place] X To: EU - Administrative; Sent: 10/16/2023 12:40:17 EDT Show up: 06/14/2024 12:40:00 EDT Subject: Reminder Message Reminder Message Please schedule for 1 year follow-up Patient is scheduled for 10/09/2024 1020am The [facility] Reminders Reminders - From: Matt Nguyễn To: EU - Administrative; [...] ) Other: PROVIDER RELATED REMINDER:_ ( ) Assembler Billiard Table ( ) Call Pharmacy ( ) Call Lab ( ) Other: Special Instructions:_ Comments:_ LVM w/ pt stating they needed to call and get appointment scheduled. Patient has an appointment on 10/09/2024 1020am. Normal [facility] X-ray reportOrdered By: Juan Francisco Price on 09-08-2024 Study report [facility] [address] XRay Report Signed Patient: Leana Tran MR#: [id number] : 1985 Acct:[id number] Age/Sex: 38 / F ADM Date: 5 Loc: XDUCLY Room: Type: [facility] Attending Dr: Oliva Becerra APRN, MODEL SET ARTIST-C Copies to: Oliva Becerra APRN~ Ordering Provider: Oliva Becerra APRN Date of Service: 09/08/24 XR/XR forearm RT 2V*: S59.911A - Unspecified injury of right forearm, initial e... LEFT FOREARM - 2 views CLINICAL HISTORY: Fall 2 weeks ago with persistent forearm pain. COMPARISON: None FINDINGS: No focal soft tissue abnormality. No acute bony process is seen. Elbow appearsgrossly intact. Radiocarpal joint appears grossly intact. XR/XR forearm RT 2V* IMPRESSION: NO ACUTE BONY PROCESS. Impression dictated by: Jairo Radford Jr.OKerri 09/08/2024 12:32 PM Dictation Location: RADIO-PC-23 Transcribed By: GEO 09/08/24 1232 Dictated By: Michael Price Jr, DO 09/08/24 1223 Signed By: 09/08/24 1232 [facility] XR forearm RT 2V*on 09-09-19 XR forearm RT 2V* [facility] [place] [address] XRay Report Signed Patient: Leana Tran MR#: [id number] : 1985 Acct:[id number] Age/Sex: 38 / F ADM Date: 09/08/24 Loc: XDUCLY Room: Type: [facility] Attending Dr: Oliva Becerra APRN, MODEL SET ARTIST-C Copies to: Oliva Becerra APRN Ordering Provider: Oliva Becerra APRN Date of Service: 09/08/24 XR/XR forearm RT 2V*: S59.911A - Unspecified injury of right forearm, initial e... LEFT FOREARM - 2 views CLINICAL HISTORY: Fall 2 weeks ago with persistent forearm pain. COMPARISON: None FINDINGS: No focal soft tissue abnormality. No acute bony process is seen. Elbow appears grossly intact. Radiocarpal joint appears grossly intact. XR/XR forearm RT 2V* IMPRESSION: NO ACUTE BONY PROCESS. Impression dictated by: Michael Price Jr., D.O. 09/08/2024 12:32 PM Dictation Location: RADIO-PC-23 Transcribed By: GEO 09/08/24 1232 Dictated By: Michael Price Jr, DO 09/08/24 1223 Signed By: 09/08/24 1232 Normal [facility] Orders Onlyon 08-25-2024 Orders Only [id number] Leana Tran 1985 F Date Provider Department Center 08/25/2024 ABIEL NICHOLS [facility] C[facility] Family History Problem Relation Age of Onset Other Mother Hypertension Mother Heart failure Mother Diabetes Mother Skin cancer Mother Coronary artery disease Mother Heart attack Mother Comments: 52 Heart disease Mother Kidney disease Mother Stroke Mother Diabetes type II Mother Asthma Mother Cancer Mother Hyperlipidemia Mother Heart disease Father Comments: 57 Heart attack Father Heart murmur Father Heart failure Father Hyperlipidemia Father Diabetes type II Sister Hypertension Sister Cesar's thyroiditis Mother's Sister Aortic aneurysm Maternal Grandmother Comments: 60 Cancer Maternal Grandmother Other Son Fainting Son Asthma Son Cancer Maternal Grandfather Cancer Paternal Grandmother Stroke Mother's Sister Thyroid disease Mother's Sister Stroke Mother's Sister Thyroid disease Mother's Sister Family Status - Relation Status Age at Mother Father Sister Mother's Sister Maternal Grandmother Alive Son Alive Son Alive Son Alive Maternal Grandfather Alive Paternal Grandmother Alive Mother's Sister Alive Mother's Sister Alive Mother's Sister Alive Mother's Sister Alive Normal [facility] Cardiac echo study Procedure Ordered By: Gosia Rangel on 08-22-2024 Ao Root Index 0.78 cm/m2 [employer] Phone: Aortic Root 1.6 cm [employer] Phone: Aortic Sinus Valsalva 2.6 cm [employer] Phone: Aortic Sinus Valsalva Index 1.27 cm/m2 [employer] Phone: Ascending Aorta 2.2 cm Bon Secou rs [employer] Work Phone: Ascending Aorta Index 1.07 cm/m2 [employer] Phone: AV Cusp Mmode 1.8 cm [employer] Phone: AV Mean Gradient 5 mmHg Bon Seco urs [employer] Phone: AV Mean Velocity 1 m/s Hong zavala [employer] Work Phone: AV Peak Gradient 10 mmHg Bon Debra zavala [employer] Work Phone: AV Peak Velocity 1.6 m/s Bon Debra zavala [employer] Work Phone: AV Velocity Ratio 0.75 Bon [employer] jaida [employer] Work Phone: AV VTI 34.3 cm [employer] Work Phone: Body surface area Derived from formula 2.14 m2 [employer] Work Phone: E/E' Lateral 5.41 [employer] Phone: EF BP 60 % 55 - 100 % [employer] Work Phone: EF Physician 60 % [employer] Work Phone: Est. RA Pressure 3 mmHg Bon Debra zavala [employer] Work Phone: Fractional Shortening 2D 32 % 28 - 44 % [employer] Work Phone: IVSd 0.8 cm 0.6 - 0.9 cm [employer] Work Phone: LA Area 2C 16.6 cm2 [employer] Work Phone: LA Area 4C 19.3 cm2 [employer] Work Phone: LA Major [place] 5.5 cm [employer] Work Phone: LA Minor [place] 4.9 cm [employer] Work Phone: LA Volume BP 50 mL 22 - 52 mL [employer] Work Phone: LA Volume Index BP 24 ml/m2 16 - 34 ml/m2 [employer] Work Phone: LA Volume Index MOD A2C 21 ml/m2 16 - 34 ml/m2 [employer] Work Phone: LA Volume Index MOD A4C 25 ml/m2 16 - 34 ml/m2 [employer] Work Phone: LA Volume MOD A2C 44 mL 22 - 52 mL Bon Sec ours [employer] Work Phone: LA Volume MOD A4C 51 mL 22 - 52 mL Bon Sec [employer] Work Phone: LV E' Lateral Velocity 14.6 cm/s Esdras n [employer] Work Phone: LV EDV A2C 86 mL Bon [employer] Work Phone: LV EDV A4C 101 mL Bon [employer] Work Phone: LV EDV Index A2C 42 mL/m2 Bon Seco [employer] Work Phone: LV EDV Index A4C 49 mL/m2 Bon [employer]o [employer] Work Phone: LV Ejection Fraction A2C 63 % Bon [employer] Work Phone: LV Ejection Fraction A4C 59 % [employer] Work Phone: LV ESV A2C 32 mL Bon [employer] Work Phone: LV ESV A4C 42 mL Bon [employer] Work Phone: LV ESV Index A2C 16 mL/m2 Bon Seco [employer] Work Phone: LV ESV Index A4C 20 mL/m2 Bon Seco [employer] Work Phone: LV Mass 2D 122.3 g 67 - 162 g Bon [employer] Work Phone: LV Mass 2D Index 59.6 g/m2 43 - 95 g/m2 Bon Madeleine [employer] Work Phone: LV RWT Ratio 0.34 [employer] Work Phone: LVIDd 4.7 cm 3.9 - 5.3 cm [employer] Work Phone: LVIDd Index 2.29 cm/m2 [employer] Work Phone: LVIDs 3.2 cm [employer] Work Phone: LVIDs Index 1.56 cm/m2 [employer] Work Phone: LVOT Mean Gradient 3 mmHg Bon Se [employer] Work Phone: LVOT Peak Gradient 6 mmHg Bon Se [employer] Work Phone: LVOT Peak Velocity 1.2 m/s Bon Se [employer] Work Phone: LVOT VTI 26.3 cm [employer] Work Phone: LVOT:AV VTI Index 0.77 Bon [employer] jaida [employer] Phone: LVPWd 0.8 cm 0.6 - 0.9 cm [employer] Phone: MV A Velocity 0.54 m/s Bon [employer] Work Phone: MV E Velocity 0.79 m/s [employer] Work Phone: MV E Wave Deceleration Time 174 ms [employer] Work Phone: MV E/A 1.46 [employer] Phone: TX Max Velocity 0.7 m/s Bon Secou [employer] Work Phone: Pulmonary Artery EDP 2 mmHg Bon [employer] Work Phone: PV Max Velocity 1 m/s Bon Sec[employer] rs [employer] Work Phone: PV Peak Gradient 4 mmHg Bon Seco urs [employer] Work Phone: RVSP 20 mmHg Bon [employer] Phone: Sinotubular Junction 1.8 cm [employer] Work Phone: TAPSE 2.4 cm 1.7 cm [employer] Work Phone: TR Max Velocity 2.07 m/s Hong chan [employer] Work Phone: TR Peak Gradient 17 mmHg Hong zavala [employer] Work Phone: Hong Dang [employer] Work Phone: Cardiac echo study Procedure on 08-22-2024 Left Ventricle: Normal left ventricular systolic function [...] Image quality: adequate. No contrast was given. [facility] CV CPACS Radiology Study observation (narrative) [employer] 36on 08-13-2024 36 I faxed the order to number given. Normal [facility] 36 [facility] out[facility] scheduling is requesting the order to be faxed to their facility. Please send to fax#[phone]. Thank you This phone message was created by the Ambulatory float staff. If you need customer support consultant follow up regarding this patient, please make your appropriate clinic staff member aware. Thank you. Normal [facility] Telemedicineon 08-12-2024 Telemedicine [id number] MarcLeana Dominick 1985 F Date Provider Department Center 08/12/2024 MACRINA FISCHER [facility] CARD [facility] Family History Problem Relation Age of Onset Other Mother Hypertension Mother Heart failure Mother Diabetes Mother Skin cancer Mother Coronary artery disease Mother Heart attack Mother Comments: 52 Heart disease Mother Kidney disease Mother Stroke Mother Diabetes type II Mother Asthma Mother Cancer Mother Hyperlipidemia Mother Heart disease Father Comments: 57 Heart attack Father Heart murmur Father Heart failure Father Hyperlipidemia Father Diabetes type II Sister Hypertension Sister Cesar's thyroiditis Mother's Sister Aortic aneurysm Maternal Grandmother Comments: 60 Cancer Maternal Grandmother Other Son Fainting Son Asthma Son Cancer Maternal Grandfather Cancer Paternal Grandmother Stroke Mother's Sister Thyroid disease Mother's Sister Stroke Mother's Sister Thyroid disease Mother's Sister Family Status - Relation Status Age at Mother Father Sister Mother's Sister Maternal Grandmother Alive Son Alive Son Alive Son Alive Maternal Grandfather Alive Paternal Grandmother Alive Mother's Sister Alive Mother's Sister Alive Mother's Sister Alive Mother's Sister Alive Level of Service:25322 TX OFFICE/OUTPATIENT ESTABLISHED LOW MDM 20 MIN Reason for Visit and Comments: Telehealth Audio/video Visit [[id number]] [facility] ALL CBC WITH AUTO DIFFon BASOPHILS ABSOLUTE AUTO 0 [facility] Basophils/100 WBC (Bld) 0.6 % 0.2 - 2.0 % [facility] Eosinophils/100 WBC (Bld) 2.6 % 0.9 - 7.0 % [facility] Erythrocyte distribution width (RBC) [Ratio] 11.6 % 11.0 - 15.0 % [facility] Hematocrit (Bld) [Volume fraction] 43.2 % 36.0 - 48.0 % [facility] Hemoglobin (Bld) [Mass/Vol] 14.7 g/dL 12.0 - 16.0 g/dL [facility] IMMATURE GRANULOCYTES ABS AUTO 0.02 [facility] Immature granulocytes/100 WBC (Bld) 0.3 % 0.0 - 0.5 % [facility] LYMPHOCYTES ABSOLUTE AUTO 1.6 [facility] Lymphocytes/100 WBC (Bld) 22.8 % 20.5 - 60.0 % [facility] MCH (RBC) [Entitic mass] 29.6 pg 26.7 - 34.0 pg [facility] MCHC (RBC) [Mass/Vol] 34 g/dL 29.9 - 35.2 g/dL [facility] MCV (RBC) [Entitic vol] 86.9 fL 81.0 - 99.0 fL [facility] MONOCYTES ABSOLUTE AUTO 0.4 [facility] Monocytes/100 WBC (Bld) 5.7 % 1.7 - 12.0 % [facility] NEUTROPHILS ABSOLUTE AUTO 4.7 [facility] Neutrophils/100 WBC (Bld) 68 % 43.0 - 75.0 % [facility] Platelet mean volume (Bld) [Entitic vol] 10.1 fL 9.5 - 13.5 fL [facility] TBH EO # 0.2 [facility] PLT 258 [facility] RBC 4.97 [facility] WBC 6.8 [facility] Orders Onlyon 07-09-2024 Orders Only [id number] Leana Tran 1985 F Date Provider Department Center 07/09/2024 KENYA ORTIZ [facility] C[facility] Family History [...] Grandmother Son Alive Son Alive Son Alive [facility] 36on 05-23-2024 36 Pt is unable to find any pyridostigmine ER 180 mg in stock. She was on the short acting last time this happened. Short acting sent to the pharmacy [facility] 36 Pt notified the pyridostigmine ER is on back order. She is going to call around to see if she can find it in stock [facility] ALL DHEA SULFATEon DHEA-SULFATE 60.8 ug/dL 57.3 - 279.2 ug/dL [facility] Comment on above: Performed at: [facility] [address] [id number] Negative Cleaner: Zacarias Sage PhD, Phone: [phone] No Panel Informationon 05-07 [facility] Health[facility] SRMCOH TESTOSTERONE FREE/TOT EQUILIBon 05-07-2024 FREE TESTOSTERONE(DIRECT) 1.2 pg/mL 0.0 - 4.2 pg/mL [facility] Comment on above: Performed at: [facility] [address] [id number] Negative Cleaner: Zacarias Sage PhD, Phone: [phone] Performed at: [facility] [employer] [id number] Negative Cleaner: Guerrero Bojorquez MD, Phone: [phone] Testosterone [Mass/Vol] 12 ng/dL 8 - 60 ng/dL [facility] ALLERGENS W/COMP RFLX AREA 5 on 05-02-2024 CLASS DES[address] . [facility] Comment on above: Levels of Specific I gE Class Description of Class ----- < 0.10 0 Negative 0.10 - 0.31 0/I Equivocal/Low 0.32 - 0.55 I Low 0.56 - 1.40 II Moderate 1.41 - 3.90 III High 3.91 - 19.00 IV Very High 19.01 - 100.00 V Very High >100.00 Very High V019-ZQT D PTERONYSSINUS <0.10 Class 0 kU/L [facility] N695-HHH D FARINAE <0.10 Class 0 kU/L [facility] Q684-FEG CAT DANDER <0.10 Class 0 kU/L [facility] O580-YVS DOG DANDER <0.10 Class 0 kU/L [facility] B292-DXF MOUSE URINE <0.10 Class 0 kU/L [facility] Comment on above: Performed at: BN - L [address] [id number] Negative Cleaner: Guerrero Bojorquez MD, Phone: [phone] J657-IRS BERMUDA GRASS <0.10 Class 0 kU/L [facility] M411-MGC LAURYN GRASS <0.10 Class 0 kU/L [facility] B587-NFA COCKROACH, URUGUAYAN <0.10 Class 0 kU/L [facility] IMMUNOGLOBULIN E, TOTAL <2 Abnormal [facility] Interpretation and review of laboratory results Abnormal [facility] S606-MMD PENICILLIUM CHRYSOGEN <0.10 Class 0 kU/L [facility] F125-MKS CLADOSPORIUM HERBARUM <0.10 Class 0 kU/L [facility] U885-RPW ASPERGILLUS FUMIGATUS <0.10 Class 0 kU/L [facility] E439-ITR ALTERNARIA ALTERNATA <0.10 Class 0 kU/L [facility] V323-ZXQ MAPLE/BOX ELDER <0.10 Class 0 kU/L [facility] L682-NTV COMMON SILVER BIRCH <0.10 Class 0 kU/L [facility] W942-RCF CEDAR, MOUNTAIN <0.10 Class 0 kU/L [facility] S054-OTR OAK, WHITE <0.10 Class 0 kU/L [facility] W694-VQY ELM, ECUADOREAN <0.10 Class 0 kU/L [facility] Y876-TJK WALNUT <0.10 Class 0 kU/L [facility] U220-GIE MAPLE LEAF SYCAMORE <0.10 Class 0 kU/L [facility] L633-UWO COTTONWOOD <0.10 Class 0 kU/L [facility] V789-FLT REEMA, WHITE <0.10 Class 0 kU/L [facility] L162-OTY PECAN, HICKORY <0.10 Class 0 kU/L [facility] J759-ELM WHITE MULBERRY <0.10 Class 0 kU/L [facility] O959-FFG RAGWEED, SHORT <0.10 Class 0 kU/L [facility] A390-KPQ THISTLE, TUNISIAN <0.10 Class 0 kU/L [facility] R243-NPB PIGWEED, COMMON <0.10 Class 0 kU/L [facility] Q688-TDB SHEEP SORREL <0.10 Class 0 kU/L [facility] MLR HEMOGLOBIN A1Con 025 Glucose [Mass/Vol] 120 mg/dL [facility]are HbA1c (Bld) [Mass fraction] 5.8 % 4.5 - 6.2 % [facility] Comment on above: ADA RECOMMENDED LIMI T 4.0 - 6.0 ADA THERAPEUTIC TARGET < 7.0 ACTION SUGGESTED > 7.0 [facility] FREE T3on 02-05-2024 Free T3 [Mass/Vol] 2.70 pg/mL Normal 2.50-3.90 [facility] Comment on above: Performed By: #### 3 016-3, 3051-0, 3024-7 #### [facility] ([id number]) [address] [place] [address], [address] [place] [address] FREE T4on 02-05-2024 Free T4 [Mass/Vol] 0.75 ng/dL Normal 0.61-1.60 [facility] Comment on above: Performed By: #### 3 016-3, 3051-0, 3024-7 #### [facility] ([id number]) [address] [place] [address], [address] [place] [address] TSH Qnon 02-05-2024 TSH 0.44 uIU/mL Low 0.49-4.67 [facility] Comment on above: Performed By: #### 3 016-3, 3051-0, 3024-7 #### [facility] ([id number]) [address] [place] [address], [address] [place] [address] Measles (Rubeola) Imon 12-27 Measles (Rubeola) Im 2.45 Normal >1.[address] [facility] Comment on above: Result Comment: Interpretation: IMMUNE Reference Range: <0.91 Not Immune 0.91-1.09 Equivocal >1.09 Immune Performed By: #### R UBI, BALTAZAR, VZI, GRICELDA #### [employer] [address] [place], [place] [id number] Negative Cleaner: Emanuel Reaves MD Mumps,Immun,Abon 12-28-2023 Mumps,Immun,Ab 3.42 Normal >1.09 [facility] Comment on above: Result Comment: Interpretation: IMMUNE Reference Range: <0.91 Not Immune 0.91-1.09 Equivocal >1.09 Immune Performed By: #### R UBI, BALTAZAR, VZI, GRICELDA #### [employer] [address] [place] [address] Negative Cleaner: Emanuel Reaves MD VZ Immunityon 12-28-2023 VZ Immunity 1.85 Normal >1.09 [facility] Comment on above: Result Comment: Interpretation: IMMUNE Reference Range: <0.91 Not Immune 0.91-1.09 Equivocal >1.09 Immune Performed By: #### R UBI, BALTAZAR, VZI, GRICELDA #### [employer] [address] [place] [address] Negative Cleaner: Emanuel Reaves MD MHPT RUBELLA AB, IGGon 12-26 PT RUBELLA AB, IGG 62.7 IU/mL [facility] Comment on above: <10 NON REACTIVE Negative for Anti-Rubella IgG >=10 REACTIVE Positive for Anti Rubella IgG The presence of IgG antibody to Rubella virus is an indication of previous exposure either by prior infection or vaccination. Original Ordering Provider[facility], IgGon 12-27-2023 Rubella Ab, IgG 62.7 IU/mL [facility] Comment on above: Result Comment: <10 NON REACTIVE Negative for Anti-Rubella IgG >=10 REACTIVE Positive for Anti Rubella IgG The presence of IgG antibody to Rubella virus is an indication of previous exposure either by prior infection or vaccination. Performed By: #### R UBI, BALTAZAR, VZI, GRICELDA #### [employer] [address] [place] [id number] Negative Cleaner: Emanuel Reaves MD Rubella antibody, IgGon 12-07 Rubella virus IgG IA Ql 62.7 IU/mL [facility] Comment on above: <10 NON REACTIVE Negative for Anti-Rubella IgG >=10 REACTIVE Positive for Anti Rubella IgG The presence of IgG antibody to Rubella virus is an indication of previous exposure either by prior infection or vaccination. [facility] IGP,APTIMA HPV,AGE GDLNon AGE GDLN ACOG TESTING Note . [facility] Comment on above: TESTS RESULT FLAG UN ITS REF RANGE LAB Clinician Provided Cytology Information Source.............Vagina No. of containers..01 ThinPrep Vial Age Algo ACOG Ashia... FLAG LEGEND: L-Low Normal,H-High Normal,LL-Alert Low,HH-Alert High <-Panic Low,>-Panic High,A-Abnormal,AA-Critical Abnormal Performed at: 01 =G [address] [place] [address] Maryjo Saez MD, HPV APTIMA Negative Negative [facility] e Comment on above: This nucleic acid am plification test detects fourteen high- risk HPV types (16,18,31,33,35,39,45,51,52,56,58,59,66,68) without differentiation. Performed at: =[address] [id number] Negative Cleaner: Maryjo Saez MD, Phone: [phone] Performed at: [address] [place] [id number] Negative Cleaner: Maryjo Saez MD, Phone: [phone] IGP, APTIMA HPV, RFX 16/18,45 Note . [facility] Comment on above: TESTS RESULT FLAG UN ITS REF RANGE LAB DIAGNOSIS: 02 NEGATIVE FOR INTRAEPITHELIAL LESION OR MALIGNANCY. Specimen adequacy: 02 Satisfactory for evaluation. No endocervical component is identified. Performed by: 02 Kelly Burns, Business Project Analyst (ASC) . 02 Note: Note 02 The Pap [...] <-Panic Low,>-Panic High,A-Abnormal,AA-Critical Abnormal Performed at: 02 [facility] [address] [place] [address] Maryjo Saez MD, [facility] THYROXINE (T4) FREEon Free T4 [Mass/Vol] 0.89 ng/dL 0.76 - 1. 46 ng/dL [facility] Health[facility] e Telemedicineon 10-10-2023 Telemedicine [phone] Leana Tran Dmoinick 1985 F Date Provider Department Center 10/10/2023 MACRINA FISCHER [facility] CARD [facility] Family History [...] Alive Son Alive Son Alive Level of Service:76457 [place] OFFICE/OUTPATIENT ESTABLISHED LOW MDM 20 MIN Reason for Visit and Comments: Orthostatic Intolerance [Other] Normal [facility] CBC W AUTO DIFF BLDon Basophils/100 WBC (Bld) 0.7 % [facility] BASOPHILS # BLD AUTO 0.04 [facility] DIFFERENTIAL METHOD BLD Auto [facility] EOSINOPHIL # BLD AUTO 0.15 [facility] LYMPHOCYTES # BLD AUTO 1.23 [facility] MONOCYTES # BLD AUTO 0.24 [facility] NEUTROPHILS # BLD AUTO 4.06 [facility] NRBC # BLD AUTO <0.01 [facility] NRBC/100 WBC BLD-RTO 0.0 /100 WBC [facility] PLATELET # BLD AUTO 241 [facility] PMV BLD AUTO 10.0 fL 9.0 - 12.7 fL [facility] WBC # BLD AUTO 5.75 [facility] Eosinophils/100 WBC (Bld) 2.6 % [facility] Erythrocyte distribution width (RBC) [Ratio] 11.6 % 11.5 - 15.0 % [facility] Hematocrit (Bld) [Volume fraction] 41.7 % 36.0 - 46.0 % [facility] Hemoglobin (Bld) [Mass/Vol] 14.7 g/dL 11.5 - 15.5 g/dL [facility] IMM GRANULOCYTES # BLD AUTO 0.03 NINF [facility] IMM GRANULOCYTES/LEUK NFR BLD AUTO 0.5 % [facility] Lymphocytes/100 WBC (Bld) 21.4 % [facility] MCH (RBC) [Entitic mass] 30.2 pg 26.0 - 34.0 pg [facility] MCHC (RBC) [Mass/Vol] 35.3 g/dL 30.5 - 36.0 g/dL [facility] MCV (RBC) [Entitic vol] 85.8 fL 80.0 - 100.0 fL [facility] Monocytes/100 WBC (Bld) 4.2 % [facility] Neutrophils/100 WBC (Bld) 70.6 % [facility] RBC (Bld) [#/Vol] 4.86 10*6/uL 3.90 - 5.2 0 m/uL [facility] Specimen Type: BLOOD SPECIMEN Ordering Facility: [facility] Address: [address] [place] [address] Original Ordering Provider: [place] [facility] [place] [facility] Hemoglobin [id number] By: Alize Kong on 01-01-2023 [facility] CELIAC ANTIBODIES PROFILEon 06-16-2022 Deamidated Gliadin Abs, IgA 26 units Critically high 0-19 [facility] Comment on above: Result Comment: Nega tive 0 - 19 Weak Positive 20 - 30 Moderate to Strong Positive >30 Performed By: #### C BC #### [facility] [address] [place] [address] Dr. Nilton Mccall Deamidated Gliadin Abs, IgG 5 units Normal 0-19 [facility] Comment on above: Result Comment: Nega tive 0 - 19 Weak Positive 20 - 30 Moderate to Strong Positive >30 Performed By: #### C BC #### [facility] [address] [place] [address] Dr. Nilton Mccall Endomysial Antibody IgA Negative Normal Negative [facility] Comment on above: Performed By: #### C BC #### [facility] [address] [place] [address] Dr. Nilton Mccall Immunoglobulin A, Qn, Serum 205 mg/dL Normal 87-352 [facility] Comment on above: Performed By: #### C BC #### [facility] [address] [place] [address] Dr. Nilton Mccall t-Transglutaminase (tTG) IgA <2 Normal 0-3 [facility] Comment on above: Result Comment: Nega tive 0 - 3 Weak Positive 4 - 10 Positive >10 . Tissue Transglutaminase (tTG) has been identified as the endomysial antigen. Studies have demonstr- ated that endomysial IgA antibodies have over 99% specificity for gluten sensitive enteropathy. Performed By: #### C BC #### [facility] [address] [place] [address] Dr. Nilton Mccall t-Transglutaminase (tTG) IgG 3 U/mL Normal 0-5 [facility] Comment on above: Result Comment: Nega tive 0 - 5 Weak Positive 6 - 9 Positive >9 Performed By: #### C BC #### [facility] [address] [place] [address] Dr. Nilton Mccall CBC AUTO DIFFon 06-15-2022 BASO # 0.0 103/ul Normal 0.0-0.1 [facility] Comment on above: Performed By: #### C BC #### [facility] [address] [place] [address] Dr. Nilton Mccall Basophils/100 WBC (Bld) 0.5 % Normal 0.2-2.0 [facility] Comment on above: Performed By: #### C BC #### [facility] [address] [place] [address] Dr. Nilton Mccall EO # 0.2 103/ul Normal 0.0-0.7 [facility] Comment on above: Performed By: #### C BC #### [facility] [address] [place] [address] Dr. Nilton Mccall Eosinophils/100 WBC (Bld) 2.8 % Normal 0.9-7.0 [facility] Comment on above: Performed By: #### C BC #### [facility] [address] [place] [address] Dr. Nilton Mccall Erythrocyte distribution width (RBC) [Ratio] 11.8 % Normal 11.0-15.0 [facility] Comment on above: Performed By: #### C BC #### [facility] [address] [place] [address] Dr. Nilton Mccall Hematocrit (Bld) [Volume fraction] 41.8 % Normal 36.0-48.0 [facility] Comment on above: Performed By: #### C BC #### [facility] [address] [place] [address] Dr. Nilton Mccall Hemoglobin (Bld) [Mass/Vol] 14.2 g/dL Normal 12.0-16.0 [facility] Comment on above: Performed By: #### C BC #### [facility] [address] [place] [address] Dr. Nilton Mccall IG # 0.03 10e3/ul Normal 0.00-0.03 [facility] Comment on above: Performed By: #### C BC #### [facility] [address] [place] [address] Dr. Nilton Mccall IG % 0.4 % Normal 0.0-0.5 [facility] Comment on above: Performed By: #### C BC #### [facility] [address] [place] [address] Dr. Nilton Mccall LYMPH # 2.3 103/ul Normal 1.2-3.8 [facility] Comment on above: Performed By: #### C BC #### [facility] [address] [place] [address] Dr. Nilton Mccall Lymphocytes/100 WBC (Bld) 28.8 % Normal 20.5-60.0 [facility] Comment on above: Performed By: #### C BC #### [facility] [address] [place] [address] Dr. Nilton Mccall MANUAL DIFF REQ NO Normal [facility] Comment on above: Performed By: #### C BC #### [facility] [address] [place] [address] Dr. Nilton Mccall MCH (RBC) [Entitic mass] 29.4 pg Normal 26.7-34.0 [facility] Comment on above: Performed By: #### C BC #### [facility] [address] [place] [address] Dr. Nilton Mccall MCHC (RBC) [Mass/Vol] 34.0 g/dL Normal 29.9-35.2 [facility] Comment on above: Performed By: #### C BC #### [facility] [address] [place] [address] Dr. Nilton Mccall MCV (RBC) [Entitic vol] 86.5 fL Normal 81.0-99.0 [facility] Comment on above: Performed By: #### C BC #### [facility] [address] [place] [address] Dr. Nilton Mccall MONO # 0.4 103/ul Normal 0.3-0.8 [facility] Comment on above: Performed By: #### C BC #### [facility] [address] [place] [address] Dr. Nilton Mccall Monocytes/100 WBC (Bld) 4.5 % Normal 1.7-12.0 [facility] Comment on above: Performed By: #### C BC #### [facility] [address] [place] [address] Dr. Nilton Mccall NEUT # 5.0 103/ul Normal 1.4-6.5 [facility] Comment on above: Performed By: #### C BC #### [facility] [address] [place] [address] Dr. Nilton Mccall Neutrophils/100 WBC (Bld) 63.0 % Normal 43.0-75.0 [facility] Comment on above: Performed By: #### C BC #### [facility] [address] [place] [address] Dr. Nilton Mccall Platelet mean volume (Bld) [Entitic vol] 9.5 fL Normal 9.5-13.5 [facility] Comment on above: Performed By: #### C BC #### [facility] [address] [place] [address] Dr. Nilton Mccall PLT 279 103/ul Normal 150-450 [facility] Comment on above: Performed By: #### C BC #### [facility] [address] [place] [address] Dr. Nilton Mccall RBC 4.83 106/ul Normal 4.20-5.40 [facility] Comment on above: Performed By: #### C BC #### [facility] [address] [place] [address] Dr. Nilton Mccall WBC 7.9 103/ul Normal 4.0-11.0 [facility] Comment on above: Performed By: #### C BC #### [facility] [address] [place] [address] Dr. Nilton Mccall GLYCOHEMOGLOBIN A1Con 2022 ADA RECOMMENDATION SEE BELOW Normal [facility] Comment on above: Result Comment: ADA RECOMMENDED LIMIT 4.0 - 6.0 ADA THERAPEUTIC TARGET < 7.0 ACTION SUGGESTED > 7.0 Performed By: #### C MP #### [facility] [address] [place] [address] Dr. Nilton Mccall Glucose [Mass/Vol] 117 mg/dL Normal [facility] Comment on above: Performed By: #### C MP #### [facility] [address] [place] [address] Dr. Nilton Mccall HbA1c (Bld) [Mass fraction] 5.7 % Normal 4.5-6.2 [facility] Comment on above: Performed By: #### C MP #### [facility] [address] [place] [address] Dr. Nilton Mccall VIT B12 AND FOLATEon 023 Cobalamin (Vitamin B12) [Mass/Vol] 539.0 pg/mL Normal 193.0-986.0 [facility] Comment on above: Performed By: #### C BC #### [facility] [address] [place] [address] Dr. Nilton Mccall FOLATE 16.40 ng/mL Normal 8.60-58.90 [facility] Comment on above: Performed By: #### C BC #### [facility] [address] [place] [address] Dr. Nilton Mccall VITAMIN D 25 OHon 06-15-2022 VIT D 25-OH 41.2 ng/mL Normal [facility] Comment on above: Performed By: #### C BC #### [facility] [address] [place] [address] Dr. Nilton Mccall VIT D RANGES SEE BELOW Normal [facility] Comment on above: Result Comment: <20 ng/mL Vit D deficient 20 - <30 ng/mL Vit D insufficient 30 - 100 ng/mL Vit D sufficient >100 ng/mL Potential Toxicity Performed By: #### C BC #### [facility] [address] [place] [address] Dr. Nilton Mccall FREE T3on 06-05-2022 FREE T3 2.39 pg/mlL Normal 2.18-3.98 [facility] Comment on above: Performed By: #### T SH, FT3 #### [facility] [address] [place] [address] Dr. Nilton Mccall FREE T4on 06-05-2022 Free T4 [Mass/Vol] 0.89 ng/dL Normal 0.76-1.46 [facility] Comment on above: Performed By: #### C MP #### [facility] [address] [place] [address] Dr. Nilton Mccall TSHon 06-05-2022 TSH 1.431 uIU/mL Normal 0.358-3.740 [facility] Comment on above: Performed By: #### T SH, FT3 #### [facility] [address] [place] [address] Dr. Nilton Mccall PLATELET TRANSMISSION ELECTR ON MICROSCOPIC STUDYon 03-29-2022 PLATELET TEM Performed Normal [facility] Comment on above: Order Comment: Speci men Type: BLOOD SPECIMEN Ordering Facility: [facility] Address: [address] [place] [phone] Performed By: #### P LTEMS #### [facility] CLIA [id number] [address] [place] [address] PTEM INTERPRETATION SEE NOTE Normal [facility] Comment on above: Order Comment: Speci men Type: BLOOD SPECIMEN Ordering Facility: [facility] Address: [place] [address] Result Comment: IMPR ESSION: Platelet transmission electron [...] developed and its performance characteristics determined by [facility] in a manner consistent with CLIA requirements. This test has not been cleared or approved by the U.S. Food and Drug Administration. Test Performed by: [facility] [place] [address] Negative Cleaner: Shree Norwood M.D. Ph.D.; CLIA# [id number] Performed By: #### P LTEMS #### [facility] CLIA [id number] [address] [place], [place] [address] T4, Freeon 02-17-2022 Thyroxine, Free 1.34 ng/dL 0.93 - 1.70 ng/dL [facility] TSH with Reflexon 02-17-2022 Interpretation and review of laboratory results Abnormal [facility] TSH Qn 0.08 m[IU]/L Low [facility] US KIDNEYSon 12-26-2021 US KIDNEYS EXAMINATION: US KIDNEYS HISTORY: Elodia hematuria COMPARISON: 10/20/2020, 11/14/2021 TECHNIQUE: Ultrasound examination [...] BELÉN ANDRADE Date: 2021-12-26 07:22 Normal [facility] CBC AUTO DIFFon 12-12-2021 BASO # 0.0 103/ul Normal 0.0-0.1 [facility] Comment on above: Performed By: #### C MP #### [facility] [address] [place] [address] Dr. Nilton Mccall Basophils/100 WBC (Bld) 0.5 % Normal 0.2-2.0 [facility] Comment on above: Performed By: #### C MP #### [facility] [address] [place] [address] Dr. Nilton Mccall EO # 0.2 103/ul Normal 0.0-0.7 [facility] Comment on above: Performed By: #### C MP #### [facility] [address] [place] [address] Dr. Nilton Mccall Eosinophils/100 WBC (Bld) 3.2 % Normal 0.9-7.0 [facility] Comment on above: Performed By: #### C MP #### [facility] [address] [place] [address] Dr. Nilton Mccall Erythrocyte distribution width (RBC) [Ratio] 11.9 % Normal 11.0-15.0 [facility] Comment on above: Performed By: #### C MP #### [facility] [address] [place] [address] Dr. Nilton Mccall Hematocrit (Bld) [Volume fraction] 42.8 % Normal 36.0-48.0 [facility] Comment on above: Performed By: #### C MP #### [facility] [address] [place] [address] Dr. Nilton Mccall Hemoglobin (Bld) [Mass/Vol] 14.4 g/dL Normal 12.0-16.0 [facility] Comment on above: Performed By: #### C MP #### [facility] [address] [place] [address] Dr. Nilton Mccall IG # 0.02 10e3/ul Normal 0.00-0.03 [facility] Comment on above: Performed By: #### C MP #### [facility] [address] [place] [address] Dr. Nilton Mccall IG % 0.3 % Normal 0.0-0.5 [facility] Comment on above: Performed By: #### C MP #### [facility] [address] [place] [address] Dr. Nilton Mccall LYMPH # 1.4 103/ul Normal 1.2-3.8 [facility] Comment on above: Performed By: #### C MP #### [facility] [address] [place] [address] Dr. Nilton Mccall Lymphocytes/100 WBC (Bld) 22.3 % Normal 20.5-60.0 [facility] Comment on above: Performed By: #### C MP #### [facility] [address] [place] [address] Dr. Nilton Mccall MANUAL DIFF REQ NO Normal [facility] Comment on above: Performed By: #### C MP #### [facility] [address] [place] [address] Dr. Nilton Mccall MCH (RBC) [Entitic mass] 28.9 pg Normal 26.7-34.0 [facility] Comment on above: Performed By: #### C MP #### [facility] [address] [place] [address] Dr. Nilton Mccall MCHC (RBC) [Mass/Vol] 33.6 g/dL Normal 29.9-35.2 [facility] Comment on above: Performed By: #### C MP #### [facility] [address] [place] [address] Dr. Nilton Mccall MCV (RBC) [Entitic vol] 85.9 fL Normal 81.0-99.0 [facility] Comment on above: Performed By: #### C MP #### [facility] [address] [place] [address] Dr. Nilton Mccall MONO # 0.3 103/ul Normal 0.3-0.8 [facility] Comment on above: Performed By: #### C MP #### [facility] [address] [place] [address] Dr. Nilton Mccall Monocytes/100 WBC (Bld) 4.9 % Normal 1.7-12.0 [facility] Comment on above: Performed By: #### C MP #### [facility] [address] [place] [address] Dr. Nilton Mccall NEUT # 4.4 103/ul Normal 1.4-6.5 [facility] Comment on above: Performed By: #### C MP #### [facility] [address] [place] [address] Dr. Nilton Mccall Neutrophils/100 WBC (Bld) 68.8 % Normal 43.0-75.0 [facility] Comment on above: Performed By: #### C MP #### [facility] [address] [place] [address] Dr. Nilton Mccall Platelet mean volume (Bld) [Entitic vol] 9.9 fL Normal 9.5-13.5 [facility] Comment on above: Performed By: #### C MP #### [facility] [address] [place] [address] Dr. Nilton Mccall PLT 237 103/ul Normal 150-450 [facility] Comment on above: Performed By: #### C MP #### [facility] [address] [place] [address] Dr. Nilton Mccall RBC 4.98 106/ul Normal 4.20-5.40 [facility] Comment on above: Performed By: #### C MP #### [facility] [address] [address] [address] Nilton Mccall WBC 6.3 103/ul Normal 4.0-11.0 [facility] Comment on above: Performed By: #### C MP #### [facility] [address] [address] [address] Nilton Mccall GLYCOHEMOGLOBIN A1Con 2021 ADA RECOMMENDATION SEE BELOW Normal [facility] Comment on above: Result Comment: ADA RECOMMENDED LIMIT 4.0 - 6.0 ADA THERAPEUTIC TARGET < 7.0 ACTION SUGGESTED > 7.0 Performed By: #### P T, PTT #### [facility] [address] [place] [address] Dr. Nilton Mccall Glucose [Mass/Vol] 120 mg/dL Normal [facility] Comment on above: Performed By: #### P T, PTT #### [facility] [address] [place] [address] Dr. Nilton Mccall HbA1c (Bld) [Mass fraction] 5.8 % Normal 4.5-6.2 [facility] Comment on above: Performed By: #### P T, PTT #### [facility] [address] [place] [address] Dr. Nilton Mccall LIPID PROFILEon 12-12-2021 CHOL-HDL RATIO NORM SEE BELOW Normal [facility] Comment on above: Result Comment: 3.3 - 4.4 LOW RISK 4.4 - 7.1 AVERAGE RISK 7.1 - 11.0 MODERATE RISK >11.0 HIGH RISK Performed By: #### P T, PTT #### [facility] [address] [address] [address] Nilton Mccall Cholesterol [Mass/Vol] 225 mg/dL Critically high <=200 [facility] Comment on above: Performed By: #### P T, PTT #### [facility] [address] [place] [address] Dr. Nilton Mccall Cholesterol in HDL [Mass/Vol] 32 mg/dL Critically low 40-60 [facility] Comment on above: Performed By: #### P T, PTT #### [facility] [address] [address] [address] Nilton Mccall Cholesterol in LDL [Mass/Vol] 132.8 mg/dL Normal [facility] Comment on above: Performed By: #### P T, PTT #### [facility] [address] [address] [address] Nilton Mccall Cholesterol.total/Chol esterol in HDL [Mass ratio] 7.0 {ratio} Normal [facility] Comment on above: Performed By: #### P T, PTT #### [facility] [address] [address] [address] Nilton Mccall HDL NORMAL > or = 60 mg/dl - LOW CARDIOVASCULAR RISK <40 mg/dl - HIGH CARDIOVASCULAR RISK Normal [facility] Comment on above: Performed By: #### P T, PTT #### [facility] [address] [address] [address] Nilton Mccall LDL CALC NORMAL SEE BELOW Normal [facility] Comment on above: Result Comment: <100 mg/dl OPTIMAL 100 - 129 mg/dl NEAR OR ABOVE OPTIMAL 130 - 159 mg/dl BORDERLINE HIGH 160 - 189 mg/dl HIGH >190 mg/dl VERY HIGH Performed By: #### P T, PTT #### [facility] [address] [address] [address] Nilton Mccall Triglyceride [Mass/Vol] 301 mg/dL Critically high <=150 [facility] Comment on above: Performed By: #### P T, PTT #### [facility] [address] [address] [address] Nilton Mccall VLDL CALC 60.2 mg/dL Normal [facility] Comment on above: Performed By: #### P T, PTT #### [facility] [address] [address] [address] Nilton Mccall LIVER PROFILEon 12-12-2021 Albumin [Mass/Vol] 4.0 g/dL Normal 3.4-5.0 [facility] Comment on above: Performed By: #### P T, PTT #### [facility] [address] [address] [address] Nilton Mccall Albumin/Globulin [Mass ratio] 1.1 {ratio} Normal [facility] Comment on above: Performed By: #### P T, PTT #### [facility] [address] [address] [address] Nilton Mccall ALP [Catalytic activity/Vol] 70 U/L Normal 46-116 [facility] Comment on above: Performed By: #### P T, PTT #### [facility] [address] [address] [address] Nilton Mccall ALT [Catalytic activity/Vol] 30 U/L Normal 14-59 [facility] Comment on above: Performed By: #### P T, PTT #### [facility] [address] [place] [address] Dr. Nilton Mccall AST [Catalytic activity/Vol] 15 U/L Normal 15-37 [facility] Comment on above: Performed By: #### P T, PTT #### [facility] [address] [address] [address] Nilton Mccall BILI, CONJUGATED 0.1 mg/dL Normal 0.0-0.2 [facility] Comment on above: Performed By: #### P T, PTT #### [facility] [address] [place] [address] Dr. Nilton Mccall Bilirubin [Mass/Vol] 0.3 mg/dL Normal 0.2-1.0 [facility] Comment on above: Performed By: #### P T, PTT #### [facility] [address] [address] [address] Nilton Mccall Globulin (S) [Mass/Vol] 3.5 g/dL Normal [facility] Comment on above: Performed By: #### P T, PTT #### [facility] [address] [address] [address] Nilton Mccall Protein [Mass/Vol] 7.5 g/dL Normal 6.4-8.2 [facility] Comment on above: Performed By: #### P T, PTT #### [facility] [address] [address] [address] Nilton Mccall PROF CHEM 8 (BAS METB)on Anion gap [Moles/Vol] 7.2 mmol/L Normal [facility] Comment on above: Performed By: #### P T, PTT #### [facility] [address] [address] [address] Nilton Mccall Calcium [Mass/Vol] 9.1 mg/dL Normal 8.5-10.1 [facility] Comment on above: Performed By: #### P T, PTT #### [facility] [address] [address] [address] Nilton Mccall Chloride [Moles/Vol] 104 mmol/L Normal 98-107 [facility] Comment on above: Performed By: #### P T, PTT #### [facility] [address] [place] [address] Dr. Nilton Mccall CO2 [Moles/Vol] 29.7 mmol/L Normal 21.0-32.0 [facility] Comment on above: Performed By: #### P T, PTT #### [facility] [address] [address] [address] Nilton Mccall Creatinine [Mass/Vol] 0.97 mg/dL Normal 0.55-1.02 [facility] Comment on above: Performed By: #### P T, PTT #### [facility] [address] [address] [address] Nilton Mccall EGFR-AF ECUADOREAN >60 Normal >=60 [facility] Comment on above: Performed By: #### P T, PTT #### [facility] [address] [address] [address] Nilton Mccall EGFR-NON AF ECUADOREAN >60 Normal >=60 [facility] Comment on above: Performed By: #### P T, PTT #### [facility] [address] [address] [address] Nilton Mccall Glucose [Mass/Vol] 92 mg/dL Normal 74-106 [facility] Comment on above: Performed By: #### P T, PTT #### [facility] [address] [place] [address] Dr. Nilton Mccall Potassium [Moles/Vol] 3.9 mmol/L Normal 3.5-5.1 [facility] Comment on above: Performed By: #### P T, PTT #### [facility] [address] [place] [address] Dr. Nilton Mccall Sodium [Moles/Vol] 137 mmol/L Normal 136-145 [facility] Comment on above: Performed By: #### P T, PTT #### [facility] [address] [place] [address] Dr. Nilton Mccall Urea nitrogen [Mass/Vol] 14.0 mg/dL Normal 7.0-18.0 [facility] Comment on above: Performed By: #### P T, PTT #### [facility] [address] [place] [address] Dr. Nilton Mccall Urea nitrogen/Creatinine [Mass ratio] 14.4 mg/mg Normal [facility] Comment on above: Performed By: #### P T, PTT #### [facility] [address] [place] [address] Dr. Nilton Mccall TSHon 12-12-2021 TSH 0.340 uIU/mL Critically low 0.358-3.740 [facility] Comment on above: Performed By: #### P T, PTT #### [facility] [address] [place] [address] Dr. Nilton Mccall VITAMIN D 25 OHon 12-12-2021 VIT D 25-OH 44.3 ng/mL Normal [facility] Comment on above: Performed By: #### P T, PTT #### [facility] [address] [place] [address] Dr. Nilton Mccall VIT D RANGES SEE BELOW Normal [facility] Comment on above: Result Comment: <20 ng/mL Vit D deficient 20 - <30 ng/mL Vit D insufficient 30 - 100 ng/mL Vit D sufficient >100 ng/mL Potential Toxicity Performed By: #### P T, PTT #### [facility] [address] [place] [address] Dr. Nilton Mccall CULTURE URINEon 11-18-2021 CULTURE URINE Culture Observations: HEAVY GROWTH OF MIXED GENITAL CHANCE. NO POTENTIAL PATHOGENS SEEN. Normal [facility] Comment on above: Performed By: #### P T, PTT #### [facility] [address] [place] [address] Dr. Nilton Mccall CBC AUTO DIFFon 11-14-2021 BASO # 0.0 103/ul Normal 0.0-0.1 [facility] Comment on above: Performed By: #### P T, PTT #### [facility] [address] [place] [address] Dr. Nilton Mccall Basophils/100 WBC (Bld) 0.6 % Normal 0.2-2.0 [facility] Comment on above: Performed By: #### P T, PTT #### [facility] [address] [place] [address] Dr. Nilton Mccall EO # 0.2 103/ul Normal 0.0-0.7 [facility] Comment on above: Performed By: #### P T, PTT #### [facility] [address] [place] [address] Dr. Nilton Mccall Eosinophils/100 WBC (Bld) 2.6 % Normal 0.9-7.0 [facility] Comment on above: Performed By: #### P T, PTT #### [facility] [address] [place] [address] Dr. Nilton Mccall Erythrocyte distribution width (RBC) [Ratio] 11.9 % Normal 11.0-15.0 [facility] Comment on above: Performed By: #### P T, PTT #### [facility] [address] [place] [address] Dr. Nilton Mccall Hematocrit (Bld) [Volume fraction] 39.7 % Normal 36.0-48.0 [facility] Comment on above: Performed By: #### P T, PTT #### [facility] [address] [place] [address] Dr. Nilton Mccall Hemoglobin (Bld) [Mass/Vol] 13.8 g/dL Normal 12.0-16.0 [facility] Comment on above: Performed By: #### P T, PTT #### [facility] [address] [place] [address] Dr. Nilton Mccall IG # 0.03 10e3/ul Normal 0.00-0.03 [facility] Comment on above: Performed By: #### P T, PTT #### [facility] [address] [place] [address] Dr. Nilton Mccall IG % 0.5 % Normal 0.0-0.5 [facility] Comment on above: Performed By: #### P T, PTT #### [facility] [address] [place] [address] Dr. Nilton Mccall LYMPH # 1.7 103/ul Normal 1.2-3.8 [facility] Comment on above: Performed By: #### P T, PTT #### [facility] [address] [place] [address] Dr. Nilton Mccall Lymphocytes/100 WBC (Bld) 26.0 % Normal 20.5-60.0 [facility] Comment on above: Performed By: #### P T, PTT #### [facility] [address] [place] [address] Dr. Nitlon Mccall MANUAL DIFF REQ NO Normal [facility] Comment on above: Performed By: #### P T, PTT #### [facility] [address] [place] [address] Dr. Nilton Mccall MCH (RBC) [Entitic mass] 29.6 pg Normal 26.7-34.0 [facility] Comment on above: Performed By: #### P T, PTT #### [facility] [address] [place] [address] Dr. Nilton Mccall MCHC (RBC) [Mass/Vol] 34.8 g/dL Normal 29.9-35.2 [facility] Comment on above: Performed By: #### P T, PTT #### [facility] [address] [place] [address] Dr. Nilton Mccall MCV (RBC) [Entitic vol] 85.0 fL Normal 81.0-99.0 [facility] Comment on above: Performed By: #### P T, PTT #### [facility] [address] [address] [address] Nilton Mccall MONO # 0.3 103/ul Normal 0.3-0.8 [facility] Comment on above: Performed By: #### P T, PTT #### [facility] [address] [place] [address] Dr. Nilton Mccall Monocytes/100 WBC (Bld) 5.1 % Normal 1.7-12.0 [facility] Comment on above: Performed By: #### P T, PTT #### [facility] [address] [place] [address] Dr. Nilton Mccall NEUT # 4.2 103/ul Normal 1.4-6.5 [facility] Comment on above: Performed By: #### P T, PTT #### [facility] [address] [place] [address] Dr. Nilton Mccall Neutrophils/100 WBC (Bld) 65.2 % Normal 43.0-75.0 [facility] Comment on above: Performed By: #### P T, PTT #### [facility] [address] [place] [address] Dr. Nilton Mccall Platelet mean volume (Bld) [Entitic vol] 9.4 fL Critically low 9.5-13.5 [facility] Comment on above: Performed By: #### P T, PTT #### [facility] [address] [place] [address] Dr. Nilton Mccall PLT 232 103/ul Normal 150-450 [facility] Comment on above: Performed By: #### P T, PTT #### [facility] [address] [place] [address] Dr. Nilton Mccall RBC 4.67 106/ul Normal 4.20-5.40 [facility] Comment on above: Performed By: #### P T, PTT #### [facility] [address] [place] [address] Dr. Nilton Mccall WBC 6.4 103/ul Normal 4.0-11.0 [facility] Comment on above: Performed By: #### P T, PTT #### [facility] [address] [address] [address] ABD/PELVIS WO CONon 11-14 CT ABD/PELVIS WO CON EXAMINATION: CT ABD/PELVIS WO CON, 11/14/2021 1:06 PM EDT HISTORY: [...] BELÉN ANDRADE Date: 2021-11-14 14:24 Normal [facility] ER URINE PROFILEon 2 Bilirubin Ql (U) Negative Normal NEGATIVE [facility] Comment on above: Performed By: #### C BC #### [facility] [address] [place] [address] Dr. Nilton Mccall Clarity (U) CLEAR Normal CLEAR [facility] Comment on above: Performed By: #### C BC #### [facility] [address] [address] [address] Nilton Mccall Color (U) LT. YELLOW Normal YELLOW [facility] Comment on above: Performed By: #### C BC #### [facility] [address] [place] [address] Dr. Nilton Mccall ERUAHD A micrscopic examination will be performed if indicated. Normal [facility] Comment on above: Performed By: #### C BC #### [facility] [address] [place] [address] Dr. Nilton Mccall Glucose Ql (U) Negative Normal NEGATIVE [facility] Comment on above: Performed By: #### C BC #### [facility] [address] [address] [address] Nilton Mccall Hemoglobin Ql (U) Negative Normal NEGATIVE [facility] Comment on above: Performed By: #### C BC #### [facility] [address] [address] [address] Nilton Mccall Ketones Ql (U) Negative Normal NEGATIVE [facility] Comment on above: Performed By: #### C BC #### [facility] [address] [place] [address] Dr. Nilton Mccall LEUKOCYTES Negative Normal NEGATIVE [facility] Comment on above: Performed By: #### C BC #### [facility] [address] [place] [address] Dr. Nilton Mccall Nitrite Ql (U) Negative Normal NEGATIVE [facility] Comment on above: Performed By: #### C BC #### [facility] [address] [place] [address] Dr. Nilton Mccall pH (U) 6.0 [pH] Normal 5-9 [facility] Comment on above: Performed By: #### C BC #### [facility] [address] [place] [address] Dr. Nilton Mccall SPEC GRAVITY 1.025 Normal 1.005-<=1.02 5 [facility] Comment on above: Performed By: #### C BC #### [facility] [address] [place] [address] Dr. Nilton Mccall UA PROTEIN Negative Normal NEGATIVE/ TRACE [facility] Comment on above: Performed By: #### C BC #### [facility] [address] [place] [address] Dr. Nilton Mccall UR MICRO IND NOT INDICATED Normal [facility] Comment on above: Performed By: #### C BC #### [facility] [address] [place] [address] Dr. Nilton Mccall Urobilinogen Qn (U) 0.2 {Zarina'U}/dL Normal 0.2 - 1. 0 [facility] Comment on above: Performed By: #### C BC #### [facility] [address] [place] [address] Dr. Nilton Mccall MONOon 11-14-2021 Monocytes (Bld) [#/Vol] Negative Normal NEGATIVE [facility] Comment on above: Performed By: #### P T, PTT #### [facility] [address] [place] [address] Dr. Nilton Mccall PROF 14(COMP METB)on 022 Albumin [Mass/Vol] 3.8 g/dL Normal 3.4-5.0 [facility] Comment on above: Performed By: #### C MP #### [facility] [address] [place] [address] Dr. Nilton Mccall Albumin/Globulin [Mass ratio] 1.2 {ratio} Normal [facility] Comment on above: Performed By: #### C MP #### [facility] [address] [place] [address] Dr. Nilton Mccall ALP [Catalytic activity/Vol] 65 U/L Normal 46-116 [facility] Comment on above: Performed By: #### C MP #### [facility] [address] [place] [address] Dr. Nilton Mccall ALT [Catalytic activity/Vol] 29 U/L Normal 14-59 [facility] Comment on above: Performed By: #### C MP #### [facility] [address] [place] [address] Dr. Nilton Mccall Anion gap [Moles/Vol] 8.6 mmol/L Normal [facility] Comment on above: Performed By: #### C MP #### [facility] [address] [place] [address] Dr. Nilton Mccall AST [Catalytic activity/Vol] 13 U/L Critically low 15-37 [facility] Comment on above: Performed By: #### C MP #### [facility] [address] [place] [address] Dr. Nilton Mccall Bilirubin [Mass/Vol] 0.4 mg/dL Normal 0.2-1.0 [facility] Comment on above: Performed By: #### C MP #### [facility] [address] [address] [address] Nilton Mccall Calcium [Mass/Vol] 8.9 mg/dL Normal 8.5-10.1 [facility] Comment on above: Performed By: #### C MP #### [facility] [address] [address] [address] Nilton Mccall Chloride [Moles/Vol] 106 mmol/L Normal 98-107 [facility] Comment on above: Performed By: #### C MP #### [facility] [address] [place] [address] Dr. Nilton Mccall CO2 [Moles/Vol] 26.2 mmol/L Normal 21.0-32.0 [facility] Comment on above: Performed By: #### C MP #### [facility] [address] [place] [address] Dr. Nilton Mccall Creatinine [Mass/Vol] 1.12 mg/dL Critically high 0.55-1.02 [facility] Comment on above: Performed By: #### C MP #### [facility] [address] [place] [address] Dr. Nilton Mccall EGFR-AF ECUADOREAN >60 Normal >=60 [facility] Comment on above: Performed By: #### C MP #### [facility] [address] [address] [address] Nilton Mccall EGFR-NON AF ECUADOREAN 55 mL/min/1.73m2 Critically low >=60 [facility] Comment on above: Performed By: #### C MP #### [facility] [address] [place] [address] Dr. Nilton Mccall Globulin (S) [Mass/Vol] 3.3 g/dL Normal [facility] Comment on above: Performed By: #### C MP #### [facility] [address] [place] [address] Dr. Nilton Mccall Glucose [Mass/Vol] 88 mg/dL Normal 74-106 [facility] Comment on above: Performed By: #### C MP #### [facility] [address] [address] [address] Nilton Mccall Potassium [Moles/Vol] 3.8 mmol/L Normal 3.5-5.1 [facility] Comment on above: Performed By: #### C MP #### [facility] [address] [address] [address] Nilton Mccall Protein [Mass/Vol] 7.1 g/dL Normal 6.4-8.2 [facility] Comment on above: Performed By: #### C MP #### [facility] [address] [address] [address] Nilton Mccall Sodium [Moles/Vol] 137 mmol/L Normal 136-145 [facility] Comment on above: Performed By: #### C MP #### [facility] [address] [address] [address] Nilton Mccall Urea nitrogen [Mass/Vol] 14.0 mg/dL Normal 7.0-18.0 [facility] Comment on above: Performed By: #### C MP #### [facility] [address] [address] [address] Nilton Mccall Urea nitrogen/Creatinine [Mass ratio] 12.5 mg/mg Normal [facility] Comment on above: Performed By: #### C MP #### [facility] [address] [address] [address] Nilton Mccall MG MAMM DIAGNOSTIC 3D LARS CA Don 10-19-2021 MG MAMM DIAGNOSTIC 3D LARS CAD Patient: LEANA TRAN Exam Date: 10/19/2021 : 1985 Gender:F Ordering : DR CAS DOWELL . Admission #: [id number] Family : Order #: [id number] CLICK HERE TO VIEW EXAM RADIOLOGY REPORT [...] cervical cancer at age 48. LOCATION: [facility] BREAST COMPOSITION: Scattered areas fibroglandular [...] M.D. on 10/19/2021 at 11:10 Normal [facility] US BREAST LARS LIMITEDon 09- US BREAST LARS LIMITED Patient: LEANA TRAN Exam Date: 10/19/2021 : 1985 Gender:F Ordering : DR CAS DOWELL . Admission #: [id number] Family : Order #: [id number] CLICK HERE TO VIEW EXAM RADIOLOGY REPORT [...] cervical cancer at age 48. LOCATION: [facility] BREAST COMPOSITION: Scattered areas fibroglandular [...] Kim M.D. on 10/19/2021 at 11:10 Normal [facility] XR CHEST 2V FRONTAL/LATon [facility] LUNG DIFFUSION CAPACITY (FARHAD O)on 09-27-2021 DLCO (ml/min/mmHg) 22.00 ml/min/mmHg [facility] DLCO/VA (ml/min/mmHg/L) 4.60 ml/min/mmHg/L [facility] DLCOcor (ml/min/mmHg) 21.26 ml/min/mmHg [facility] ERV BOX (L) 0.28 L [facility] [id number]% POST (L/S) 2.46 L/S [facility] [id number]% PRE (L/S) 2.13 L/S [facility] FEV1 PRE (L) 2.83 L [facility] FEV1/FVC POST (%) 74 % [facility] FEV1/FVC PRE (%) 73 % [facility] FEV1_POST (L) 2.92 L [facility] FRC Box (L) 1.66 L [facility] FVC POST (L) 3.92 L [facility] FVC PRE (L) 3.89 L [facility] IC BOX (L) 2.36 L [facility] PEF POST (L/S) 5.48 L/S [facility] PEF PRE (L/S) 5.56 L/S [facility] RV Box (L) 1.39 L [facility] RV/TLC Box (%) 32 % [facility] TLC Box (L) 4.36 L [facility] VA (L) 4.78 L [facility] VC (L) BOX 3.51 L [facility] CTA CHEST WO W CONon 022 CTA CHEST WO W CON EXAMINATION: CTA CHEST WO W CON HISTORY: SHORTNESS OF BREATH [...] AYAKA STEARNS Date: 2021-09-22 22:30 Normal [facility] PROF CHEM 8 (BAS METB)on Anion gap [Moles/Vol] 5.4 mmol/L Normal [facility] Comment on above: Performed By: #### B MP #### [facility] [address] [place] [address] Dr. Nilton Mccall Calcium [Mass/Vol] 9.2 mg/dL Normal 8.5-10.1 [facility] Comment on above: Performed By: #### B MP #### [facility] [address] [place] [address] Dr. Nilton Mccall Chloride [Moles/Vol] 102 mmol/L Normal 98-107 [facility] Comment on above: Performed By: #### B MP #### [facility] [address] [address] [address] Nilton Mccall CO2 [Moles/Vol] 26.1 mmol/L Normal 21.0-32.0 [facility] Comment on above: Performed By: #### B MP #### [facility] [address] [place] [address] Dr. Nilton Mccall Creatinine [Mass/Vol] 0.99 mg/dL Normal 0.55-1.02 [facility] Comment on above: Performed By: #### B MP #### [facility] [address] [address] [address] Nilton Mccall EGFR-AF ECUADOREAN >60 Normal >=60 [facility] Comment on above: Performed By: #### B MP #### [facility] [address] [address] [address] Nilton Mccall EGFR-NON AF ECUADOREAN >60 Normal >=60 [facility] Comment on above: Performed By: #### B MP #### [facility] [address] [place] [address] Dr. Nilton Mccall Glucose [Mass/Vol] 113 mg/dL Critically high 74-106 T [facility] Comment on above: Performed By: #### B MP #### [facility] [address] [place] [address] Dr. Nilton Mccall Potassium [Moles/Vol] 3.5 mmol/L Normal 3.5-5.1 [facility] Comment on above: Performed By: #### B MP #### [facility] [address] [place] [address] Dr. Nilton Mccall Sodium [Moles/Vol] 130 mmol/L Critically low 136-145 [facility] Comment on above: Performed By: #### B MP #### [facility] [address] [place] [address] Dr. Nilton Mccall Urea nitrogen [Mass/Vol] 13.0 mg/dL Normal 7.0-18.0 [facility] Comment on above: Performed By: #### B MP #### [facility] [address] [place] [address] Dr. Nilton Mccall Urea nitrogen/Creatinine [Mass ratio] 13.1 mg/mg Normal [facility] Comment on above: Performed By: #### B MP #### [facility] [address] [place] [address] Dr. Nilton Mccall GLYCOHEMOGLOBIN A1Con 2021 ADA RECOMMENDATION SEE BELOW Normal [facility] Comment on above: Result Comment: ADA RECOMMENDED LIMIT 4.0 - 6.0 ADA THERAPEUTIC TARGET < 7.0 ACTION SUGGESTED > 7.0 Performed By: #### C BC #### [facility] [address] [address] [address] Nilton Mccall Glucose [Mass/Vol] 140 mg/dL Normal [facility] Comment on above: Performed By: #### C BC #### [facility] [address] [address] [address] Nilton Mccall HbA1c (Bld) [Mass fraction] 6.5 % Critically high 4.5-6.2 [facility] Comment on above: Performed By: #### C BC #### [facility] [address] [address] [address] Nilton Mccall Pelvis limitedon 08-20-19 IMPRESSION: No inguinal or femoral hernia identified. [facility] Transcribe Date/Time: Aug 19 2021 1:20P Dictated by : LUANNE BRYANT MD This examination was interpreted and the report reviewed and electronically signed by: LUANNE BRYANT MD on Aug 19 2021 2:51PM EST [employer]_DO_NOT_USE_ DIVISION OF RADIOLOGY * * *Final Report* * * DATE OF EXAM: Aug 19 2021 1:14PM [facility] [employer] [facility] / PROCEDURE REASON: multiple diagnoses * * [...] valsalva maneuver. INGUINAL LIGAMENT: Normal in appearance. [employer]_DO_NOT_USE_ DIVISION OF RADIOLOGY Provider, [facility] [place] - 08/19/2021 * * *Final Report* * * DATE OF EXAM: Aug 19 2021 1:14PM [facility] [employer] [place] [facility] / PROCEDURE REASON: multiple diagnoses * * [...] IMPRESSION: No inguinal or femoral hernia identified. Laboratory Engineer: PSC[employer]ay Transcribe Date/Time: Aug 19 2021 1:20P Dictated by : LUANNE BRYANT MD This examination was interpreted and the report reviewed and electronically signed by: LUANNE BRYANT MD on Aug 19 2021 2:51PM EST [facility] Radiology Study observation (narrative) [facility] US Pelvis limitedOrdered By: Ccf Provider on 08-19-2021 [facility] ECHOon 08-17-2021 Echocardiography Echocardiography Report: Transthoracic Echo [facility] Date of service: 08/17/2021 2:18:31 [...] * * Final * * * CC [facility] : [id number] Normal [facility] LVEF ECHOon 08-17-2021 LV Ejection Fraction 58 % [facility] PAP ACOG PANEL 2: 30 to 65on 08-05-2021 . . Normal [facility] Comment on above: Result Comment: Perf ormed at: WB Performed By: #### P T, PTT #### [facility] [address] [address] [address] Nilton Mccall Age Gdln ACOG Testing 30-65 Normal [facility] Comment on above: Performed By: #### P T, PTT #### [facility] [address] [address] [address] Nilton Mccall DIAGNOSIS: Comment Normal [facility] Comment on above: Result Comment: NEGA TIVE FOR INTRAEPITHELIAL LESION OR MALIGNANCY. Performed at: WB Performed By: #### P T, PTT #### [facility] [address] [address] [address] Nilton Mccall HPV Aptima Negative Normal Negative [facility] Comment on above: Result Comment: This nucleic acid amplification test detects fourteen high-risk HPV types (16,18,31,33,35,39,45,51,52,56,58,59,66,68) without differentiation. Performed at: =G Performed By: #### P T, PTT #### [facility] [address] [address] [address] Nilton Mccall Methodology: Comment Normal [facility] Comment on above: Result Comment: This liquid based ThinPrep(R) pap test was screened with the use of an image guided system. Performed at: WB Performed By: #### P T, PTT #### [facility] [address] [place] [address] Dr. Nilton Mccall Note: Comment Normal [facility] Comment on above: Result Comment: The [...] Performed By: #### P T, PTT #### [facility] [address] [place] [address] Dr. Nilton Mccall Performed by: Comment Normal [facility] Comment on above: Result Comment: Jay Ellison Business Project Analyst (ASCP) Performed at: WB Performed By: #### P T, PTT #### [facility] [address] [place] [address] Dr. Nilton Mccall Specimen adequacy: Comment Normal [facility] Comment on above: Result Comment: Sati sfactory for evaluation. No endocervical component is identified. Performed at: WB Performed By: #### P T, PTT #### [facility] [address] [place] [address] Dr. Nilton Mccall C3 SerPl-mCncon 07-25-2021 Complement C3 [Mass/Vol] 165 mg/dL Normal 86-166 [facility] Comment on above: Order Comment: Speci men Type: BLOOD SPECIMEN Ordering Facility: [facility] Address: [address] [place], [place] [id number] Performed By: #### 4 485-9, 4498-2 #### [facility] CLIA [id number] [address] [place] [address] [place] C4 SerPl-mCncon 07-25-2021 Complement C4 [Mass/Vol] 32 mg/dL Normal 13-46 [facility] Comment on above: Order Comment: Speci men Type: BLOOD SPECIMEN Ordering Facility: [facility] Address: [address] [place] [id number] Performed By: #### 4 485-9, 4498-2 #### [facility] CLIA [id number] [address] [place] [address] [place] TRYPTASE BLOODon 07-25-2021 Tryptase [Mass/Vol] 3.4 ug/L Normal <8.4 [facility] Comment on above: Order Comment: Speci men Type: BLOOD SPECIMEN Ordering Facility: [facility] Address: [address] [place] [address] Performed By: #### T RYPT #### [facility] [place] [id number] [address] [place] [address] [place] ACTH [facility] 07-18-2021 Corticotropin (P) [Mass/Vol] 15.5 pg/mL 7.2 - 63.3 pg/mL [facility] CORTISOL [facility] 07-18-2021 Cortisol [Mass/Vol] 9.9 ug/dL 4.8 - 19 .5 ug/dL [facility] Alpha tocopherol [Mass/Vol]o n 07-07-2021 Beta+gamma tocopherol [Mass/Vol] 3.0 mg/L 0.3 - 3.2 mg/L [facility] VITAMIN E/TOCOPHEROLon 07-07 Alpha tocopherol [Mass/Vol] 13.1 mg/L 6.0 - 23.0 mg/L [facility] ACTH [facility] 07-02-2021 Corticotropin (P) [Mass/Vol] 15.1 pg/mL 7.2 - 63.3 pg/mL [facility] CERULOPLASMIN [facility] 07-02-19 22 Ceruloplasmin [Mass/Vol] 23 mg/dL 16 - 45 mg/dL [facility] CK CREATINE KINASEon 022 CK [Catalytic activity/Vol] 51 U/L 42 - 196 U/L [facility] CORTISOL Don 07-01-2021 Cortisol [Mass/Vol] 7.4 ug/dL 4.8 - 19 .5 ug/dL [facility] DHEA-S [facility] 07-01-2021 DHEA-S [Mass/Vol] 35.9 ug/dL Low 60.9 - 337 .0 ug/dL [facility] FERRITIN BLDon 07-01-2021 Ferritin [Mass/Vol] 98.2 ng/mL 14.7 - 2 05.1 ng/mL [facility] BNPon 06-24-2021 Natriuretic peptide B (Bld) [Mass/Vol] 15.0 pg/mL Normal <=450.0 [facility] Comment on above: Performed By: #### C BC #### [facility] [address] [place] [address] Dr. Nilton Mccall CARDIAC CHAYO 3-6on 2 CK [Catalytic activity/Vol] 60 U/L Normal 26-192 [facility] Comment on above: Performed By: #### C MREP #### [facility] [address] [place] [address] Dr. Nilton Mccall CK.MB [Mass/Vol] 0.33 ng/mL Normal <=3.60 [facility] Comment on above: Performed By: #### C MREP #### [facility] [address] [place] [address] Dr. Nilton Mccall HSTROP 4.7 pg/mL Normal 4.0-51.3 [facility] Comment on above: Result Comment: CUT- OFF POINTS HAVE BEEN ESTABLISHED BASED ON THE FOURTH UNIVERSAL DEFINITIONS OF MYOCARDIAL INFARCTION. THE UPPER REFERENCE LIMIT (URL) OF TROPONIN, DEFINED THE 99TH PERCENTILE OF cTnI DISTRIBUTION IN A REFERENCE POPULATION, HAS BEEN CONFIRMED THE DECISION THRESHOLD FOR UT DIAGNOSIS. Performed By: #### C MREP #### [facility] [address] [place] [address] Dr. Nilton Mccall CARDIAC CHAYO ADMITon 022 CK [Catalytic activity/Vol] 71 U/L Normal 26-192 [facility] Comment on above: Performed By: #### C BC #### [facility] [address] [place] [address] Dr. Nilton Mccall CK.MB [Mass/Vol] 0.50 ng/mL Normal <=3.60 [facility] Comment on above: Performed By: #### C BC #### [facility] [address] [place] [address] Dr. Nilton Mccall HSTROP 3.8 pg/mL Critically low 4.0-51.3 [facility] Comment on above: Result Comment: CUT- OFF POINTS HAVE BEEN ESTABLISHED BASED ON THE FOURTH UNIVERSAL DEFINITIONS OF MYOCARDIAL INFARCTION. THE UPPER REFERENCE LIMIT (URL) OF TROPONIN, DEFINED THE 99TH PERCENTILE OF cTnI DISTRIBUTION IN A REFERENCE POPULATION, HAS BEEN CONFIRMED THE DECISION THRESHOLD FOR UT DIAGNOSIS. Performed By: #### C BC #### [facility] [address] [place] [address] Dr. Nilton Mccall PILI 25 ng/mL Normal 9-82 [facility] Comment on above: Performed By: #### C BC #### [facility] [address] [place] [address] Dr. Nilton Mccall CBC AUTO DIFFon 06-24-2021 BASO # 0.1 103/ul Normal 0.0-0.1 [facility] Comment on above: Performed By: #### C MP #### [facility] [address] [place] [address] Dr. Nilton Mccall Basophils/100 WBC (Bld) 0.6 % Normal 0.2-2.0 [facility] Comment on above: Performed By: #### C MP #### [facility] [address] [place] [address] Dr. Nilton Mccall EO # 0.2 103/ul Normal 0.0-0.7 [facility] Comment on above: Performed By: #### C MP #### [facility] [address] [place] [address] Dr. Nilton Mccall Eosinophils/100 WBC (Bld) 2.2 % Normal 0.9-7.0 [facility] Comment on above: Performed By: #### C MP #### [facility] [address] [place] [address] Dr. Nilton Mccall Erythrocyte distribution width (RBC) [Ratio] 11.8 % Normal 11.0-15.0 [facility] Comment on above: Performed By: #### C MP #### [facility] [address] [place] [address] Dr. Nilton Mccall Hematocrit (Bld) [Volume fraction] 43.4 % Normal 36.0-48.0 [facility] Comment on above: Performed By: #### C MP #### [facility] [address] [place] [address] Dr. Nilton Mccall Hemoglobin (Bld) [Mass/Vol] 14.8 g/dL Normal 12.0-16.0 [facility] Comment on above: Performed By: #### C MP #### [facility] [address] [place] [address] Dr. Nilton Mccall IG # 0.04 10e3/ul Critically high 0.00-0.03 [facility] Comment on above: Performed By: #### C MP #### [facility] [address] [place] [address] Dr. Nilton Mccall IG % 0.4 % Normal 0.0-0.5 [facility] Comment on above: Performed By: #### C MP #### [facility] [address] [place] [address] Dr. Nilton Mccall LYMPH # 2.0 103/ul Normal 1.2-3.8 [facility] Comment on above: Performed By: #### C MP #### [facility] [address] [place] [address] Dr. Nilton Mccall Lymphocytes/100 WBC (Bld) 21.5 % Normal 20.5-60.0 [facility] Comment on above: Performed By: #### C MP #### [facility] [address] [place] [address] Dr. Nilton Mccall MANUAL DIFF REQ NO Normal [facility] Comment on above: Performed By: #### C MP #### [facility] [address] [place] [address] Dr. Nilton Mccall MCH (RBC) [Entitic mass] 29.4 pg Normal 26.7-34.0 [facility] Comment on above: Performed By: #### C MP #### [facility] [address] [place] [address] Dr. Nilton Mccall MCHC (RBC) [Mass/Vol] 34.1 g/dL Normal 29.9-35.2 [facility] Comment on above: Performed By: #### C MP #### [facility] [address] [address] [address] Nilton Mccall MCV (RBC) [Entitic vol] 86.1 fL Normal 81.0-99.0 [facility] Comment on above: Performed By: #### C MP #### [facility] [address] [address] [address] Nilton Mccall MONO # 0.5 103/ul Normal 0.3-0.8 [facility] Comment on above: Performed By: #### C MP #### [facility] [address] [address] [address] Nilton Mccall Monocytes/100 WBC (Bld) 5.4 % Normal 1.7-12.0 [facility] Comment on above: Performed By: #### C MP #### [facility] [address] [address] [address] Nilton Mccall NEUT # 6.3 103/ul Normal 1.4-6.5 [facility] Comment on above: Performed By: #### C MP #### [facility] [address] [address] [address] Nilton Mccall Neutrophils/100 WBC (Bld) 69.9 % Normal 43.0-75.0 [facility] Comment on above: Performed By: #### C MP #### [facility] [address] [address] [address] Nilton Mccall Platelet mean volume (Bld) [Entitic vol] 9.6 fL Normal 9.5-13.5 [facility] Comment on above: Performed By: #### C MP #### [facility] [address] [address] [address] Nilton Mccall PLT 290 103/ul Normal 150-450 [facility] Comment on above: Performed By: #### C MP #### [facility] [address] [address] [address] Nilton Mccall RBC 5.04 106/ul Normal 4.20-5.40 [facility] Comment on above: Performed By: #### C MP #### [facility] [address] [place], [place] [address] Dr. Nilton Mccall WBC 9.1 103/ul Normal 4.0-11.0 [facility] Comment on above: Performed By: #### C #### [facility] [address] [place], [place] [address] STROKE HEAD WOon [...] MAREK EPSTEIN Date: 2021-06-24 20:56 Normal [facility] CT STROKE HEAD WO NONCONTRAST [...] MAREK EPSTEIN Date: 2021-06-24 19:15 Normal [facility] Covid-19 PCR ([facility])on 06-06 SARS-CoV-2 (COVID-19) RNA CHRISTI+probe Ql (Unsp spec) Not detected Normal NOT DETECTED [facility] Comment on above: [...] for this test is supported by the [place] of Health and Human Service's declaration that [...] Performed By: #### P T, PTT #### [facility] [address] [place] [address] Dr. Nilton Mccall ER URINE PROFILEon 2 Bilirubin Ql (U) Negative Normal NEGATIVE [facility] Comment on above: Performed By: #### E RUR, PREGU #### [facility] [address] [place] [address] Dr. Nilton Mccall Clarity (U) CLEAR Normal CLEAR [facility] Comment on above: Performed By: #### E RUR, PREGU #### [facility] [address] [place] [address] Dr. Nilton Mccall Color (U) YELLOW Normal YELLOW [facility] Comment on above: Performed By: #### E RUR, PREGU #### [facility] [address] [place] [address] Dr. Nilton Mccall ERUAHD A micrscopic examination will be performed if indicated. Normal [facility] Comment on above: Performed By: #### E RUR, PREGU #### [facility] [address] [place] [address] Dr. Nilton Mccall Glucose Ql (U) Negative Normal NEGATIVE [facility] Comment on above: Performed By: #### E RUR, PREGU #### [facility] [address] [place] [address] Dr. Nilton Mccall Hemoglobin Ql (U) Negative Normal NEGATIVE [facility] Comment on above: Performed By: #### E RUR, PREGU #### [facility] [address] [place] [address] Dr. Nilton Mccall Ketones Ql (U) Negative Normal NEGATIVE [facility] Comment on above: Performed By: #### E RUR, PREGU #### [facility] [address] [place] [address] Dr. Nilton Mccall LEUKOCYTES Negative Normal NEGATIVE [facility] Comment on above: Performed By: #### E RUR, PREGU #### [facility] [address] [place] [address] Dr. Nilton Mccall Nitrite Ql (U) Negative Normal NEGATIVE [facility] Comment on above: Performed By: #### E RUR, PREGU #### [facility] [address] [place] [address] Dr. Nilton Mccall pH (U) 6.0 [pH] Normal 5-9 [facility] Comment on above: Performed By: #### E RUR, PREGU #### [facility] [address] [place] [address] Dr. Nilton Mccall SPEC GRAVITY 1.015 Normal 1.005-<=1.02 5 [facility] Comment on above: Performed By: #### E RUR, PREGU #### [facility] [address] [place] [address] Dr. Nilton Mccall UA PROTEIN Negative Normal NEGATIVE/ TRACE [facility] Comment on above: Performed By: #### E RUR, PREGU #### [facility] [address] [place] [address] Dr. Nilton Mccall UR MICRO IND NOT INDICATED Normal [facility] Comment on above: Performed By: #### E RUR, PREGU #### [facility] [address] [place] [address] Dr. Nilton Mccall Urobilinogen Qn (U) 0.2 {Zarina'U}/dL Normal 0.2 - 1. 0 [facility] Comment on above: Performed By: #### E RUR, PREGU #### [facility] [address] [place] [address] Dr. Nilton Mccall LACTATE/LACTIC ACIDon 2021 Lactate [Moles/Vol] 1.0 mmol/L Normal 0.4-1.9 [facility] Comment on above: Performed By: #### P T, PTT #### [facility] [address] [address] [address] Nilton Mccall LIPASEon 06-24-2021 Lipase [Catalytic activity/Vol] 103.0 U/L Normal 73.0-393.0 [facility] Comment on above: Performed By: #### C BC #### [facility] [address] [address] [address] Nilton Mccall PH VENOUS BLOODon 06-24-2021 PCO2 VENOUS 29.4 mmHg Critically low 40.0-52.0 [facility] Comment on above: Performed By: #### P T, PTT #### [facility] [address] [address] [address] Nilton Mccall pH VENOUS 7.478 Critically high 7.330-7.430 [facility] Comment on above: Performed By: #### P T, PTT #### [facility] [address] [address] [address] Nilton Mccall POINT OF CARE GLUCOSEon 06-06 Glucose [Mass/Vol] 107 mg/dL Critically high 74-106 [facility] Comment on above: Performed By: #### C MP #### [facility] [address] [address] [address] Nilton Mccall URon 06-24-2021 , QUAL Negative Normal NEGATIVE [facility] Comment on above: Performed By: #### E RUR, PREGU #### [facility] [address] [address] [address] Nilton Mccall PROTIMEon 06-24-2021 INR Coag (PPP) [Relative time] 0.99 {INR} Normal [facility] Comment on above: Performed By: #### P T, PTT #### [facility] [address] [address] [address] Nilton Mccall INR GUIDELINES SEE BELOW Normal [facility] Comment on above: Result Comment: JOSS RED INR: 2.0 - 3.0 CONDITIONS NOT LISTED BELOW 2.5 - 3.5 FOR PROSTHETIC HEART VALVE REPLACEMENT 2.5 - 3.5 RECURRENT THROMBOSIS Performed By: #### P T, PTT #### [facility] [address] [place] [address] Dr. Nilton Mccall PT Coag (PPP) [Time] 10.7 s Normal 9.0-11.6 [facility] Comment on above: Performed By: #### P T, PTT #### [facility] [address] [place] [address] Dr. Nilton Mccall PTTon 06-24-2021 aPTT Coag (Bld) [Time] 32.5 s Normal 22.3-36.2 [facility] Comment on above: Performed By: #### P T, PTT #### [facility] [address] [place] [address] Dr. Nilton Mccall TSHon 06-24-2021 TSH 0.655 uIU/mL Normal 0.358-3.740 [facility] Comment on above: Performed By: #### C BC #### [facility] [address] [place] [address] Dr. Nilton Mccall TSH RANGE SEE BELOW Normal [facility] Comment on above: Result Comment: <0.3 4 UIU/ml HYPERTHYROID 0.34-5.60 UIU/ml EUTHYROID >5.60 UIU/ml HYPOTHYROID Performed By: #### C BC #### [facility] [address] [place] [address] Dr. Nilton Mccall XR CHEST 1 Von 06-24-2021 XR CHEST 1 V EXAMINATION: XR CHEST 1 V HISTORY: Twitching COMPARISON: Chest x-ray 11/14/2020. TECHNIQUE: Portable chest FINDINGS: The lung parenchyma is free of consolidation or infiltrate. No pneumothorax or pleural effusion. The cardiac, mediastinal and hilar contours are normal. The visualized osseous structures exhibit no gross abnormality. IMPRESSION: Normal chest x-ray Electronically authenticated by: BELÉN DC Date: 2021-06-24 19:14 Normal [facility] Basic Metabolic Panelon 06-05 Anion gap [Moles/Vol] 11 mmol/L 9 - 17 mmol/L [facility] Calcium [Mass/Vol] 9.3 mg/dL 8.6 - 10. 4 mg/dL [facility] Chloride [Moles/Vol] 102 mmol/L 98 - 10 7 mmol/L [facility] CO2 [Moles/Vol] 23 mmol/L 20 - 31 mmol/L [facility] Creatinine [Mass/Vol] 0.78 mg/dL 0.50 - 0.90 mg/dL [facility] GFR >60 >60 mL/min [facility] GFR Non- >60 >60 mL/min [facility] Glucose [Mass/Vol] 160 mg/dL High 70 - 99 mg/dL [facility] Interpretation and review of laboratory results Abnormal [facility] Potassium [Moles/Vol] 3.7 mmol/L 3.7 - 5.3 mmol/L [facility] Sodium [Moles/Vol] 136 mmol/L 135 - 144 mmol/L [facility] Urea nitrogen (BldV) [Mass/Vol] 12 mg/dL 6 - 20 mg/dL [facility] Urea nitrogen/Creatinine (Bld) [Mass ratio] 15 [facility] CBC with Auto Differentialon 06-21-2021 Absolute Eos # 0.21 [facility] th Absolute Immature Granulocyte 0.03 [facility] Absolute Lymph # 2.43 [facility] alth Absolute Tyrrell [facility] Basophils (Bld) [#/Vol] 0.05 10*3/uL [facility] Basophils/100 WBC (Bld) 1 % 0 - 2 % [facility] Eosinophils/100 WBC (Bld) 3 % 1 - 4 % [facility] Hematocrit (Bld) [Volume fraction] 41.8 % 36.3 - 47.1 % [facility] Hemoglobin.gastrointes tinal spec 1 Ql (Stl) 14.0 g/dL 11.9 - 15.1 g/dL [facility] Immature granulocytes/100 WBC (Bld) 0 % 0 [facility] Interpretation and review of laboratory results Abnormal [facility] Lymphocytes/100 WBC (Bld) 29 % 24 - 43 % [facility] MCH (RBC) [Entitic mass] 29.2 pg 25.2 - 33.5 pg [facility] MCHC (RBC) [Mass/Vol] 33.5 g/dL 28.4 - 34.8 g/dL [facility] MCV (RBC) [Entitic vol] 87.1 fL 82.6 - 102.9 fL [facility] Monocytes/100 WBC (Bld) 5 % 3 - 12 % [facility] NRBC Automated 0.0 0.0 per 100 WBC [facility] Platelet distribution width (Bld) [Ratio] 11.5 % Low 11.8 - 14.4 % [facility] Platelet mean volume (Bld) [Entitic vol] 9.6 fL 8.1 - 13.5 fL [facility] Platelets (Bld) [#/Vol] 264 10*3/uL [facility] RBC (Bld) [#/Vol] 4.80 10*6/uL 3.95 - 5.1 1 m/uL [facility] Segmented neutrophils/100 WBC (Bld) 62 % 36 - 65 % [facility] Segs Absolute 5.12 [facility] W[facility] (Bld) [#/Vol] 8.3 10*3/uL [facility] Laboratory - Chemistry and C hemistry - challengeon 06-21-2021 GFR/1.73 sq M.predicted MDRD (S/P/Bld) [Vol rate/Area] [facility] Comment on above: Average GFR for 30-3 9 years old: 107 mL/min/1.73sq m Chronic Kidney Disease: <60 mL/min/1.73sq m Kidney failure: <15 mL/min/1.73sq m eGFR calculated using average adult body mass. Additional eGFR calculator available at: http://www.Tutum.SeeOn/multiple_crcl_2012.htm Stage 1: Some kidney damage normal GFR Stage 2: Mild kidney damage GFR 60-89 Stage 3: Moderate kidney damage GFR 30-59 Stage 4: Severe kidney damage GFR 15-29 Stage 5: Severe kidney damage GFR <15 ESRD - chronic treatment by dialysis or transplant Magnesiumon 06-21-2021 Magnesium [Mass/Vol] 1.8 mg/dL 1.6 - 2 .6 mg/dL [facility] TSHon 06-21-2021 TSH Qn 1.33 m[IU]/L [facility] Troponinon 06-21-2021 Troponin, High Sensitivity <6 0 - 14 ng/L [facility] Comment on above: High Sensitivity Troponin values cannot be compared with other Troponin methodologies. Patients with high levels of Biotin oral intake (i.e >5mg/day) may have falsely decreased Troponin levels. Samples collected within 8 hours of biotin intake may require additional information for diagnosis. [facility] XR CHEST PORTABLEon 06-22-19 No acute cardiopulmonary disease. [facility] EXAMINATION: ONE XRAY VIEW OF THE CHEST 06/21/2021 12:52 am COMPARISON: 05/20/2021 HISTORY: ORDERING SYSTEM PROVIDED HISTORY: chest pain TECHNOLOGIST PROVIDED HISTORY: chest pain FINDINGS: Heart size and configuration are normal. Hilar and mediastinal structures are unremarkable. The lungs are clear. No pneumothorax or pleural fluid. No acute bone finding. [facility] Armando Stern MD - 06/21/2021 EXAMINATION: ONE XRAY VIEW OF THE CHEST 06/21/2021 12:52 am COMPARISON: 05/20/2021 HISTORY: ORDERING SYSTEM PROVIDED HISTORY: chest pain TECHNOLOGIST PROVIDED HISTORY: chest pain FINDINGS: Heart size and configuration are normal. Hilar and mediastinal structures are unremarkable. The lungs are clear. No pneumothorax or pleural fluid. No acute bone finding. IMPRESSION: No acute cardiopulmonary disease. [employer] Work Phone: Radiology Study observation (narrative) Comfy Phone: XR CHEST PORTABLEOrdered By: Armando Stern on 06-21-2021 [employer] Work Phone: [facility]-16-[facility]21 [facility] HNO ID: [id number] Author: RT Geovanna(R) Service: ? Author Type: [...] DATE: June 16, 2021 TIME: 11:05 AM [facility] MRI BRAIN WO/W IVCONon 06-16 MRI BRAIN WO/W IVCON * * *Final Report* * * DATE OF EXAM: Jun 16 2021 11:27AM [facility] [id number] - MRI BRAIN WO/W IVCON [...] of the brain with and without contrast. Laboratory Engineer: ROBER Transcribe Date/Time: Jun 16 2021 11:31A Dictated by : ANNA BOLAND MD This examination was interpreted and the report reviewed and electronically signed by: ANNA BOLAND MD on Jun 16 2021 11:53AM EST [id number] CN Normal [facility] ACTH BLDon 06-14-2021 Corticotropin (P) [Mass/Vol] 11.6 pg/mL 7.2 - 63.3 pg/mL [facility] Basic Metabolic Panel w/ Ref douglas to MGon 05-20-2021 Anion gap [Moles/Vol] 11 mmol/L 9 - 17 mmol/L [facility] Calcium [Mass/Vol] 9.1 mg/dL 8.6 - 10. 4 mg/dL [employer] Chloride [Moles/Vol] 103 mmol/L 98 - 10 7 mmol/L [facility] CO2 [Moles/Vol] 23 mmol/L 20 - 31 mmol/L [facility] Creatinine [Mass/Vol] 0.74 mg/dL 0.50 - 0.90 mg/dL [employer] GFR >60 >60 mL/min [facility] GFR Non- >60 >60 mL/min [facility] Glucose [Mass/Vol] 101 mg/dL High 70 - 99 mg/dL [facility] Interpretation and review of laboratory results Abnormal [facility] Potassium [Moles/Vol] 3.7 mmol/L 3.7 - 5.3 mmol/L [employer] Sodium [Moles/Vol] 137 mmol/L 135 - 144 mmol/L [employer] Urea nitrogen (BldV) [Mass/Vol] 9 mg/dL 6 - 20 mg/dL [employer] Urea nitrogen/Creatinine (Bld) [Mass ratio] 12 [employer] Brain Natriuretic Peptideon 05-20-2021 Natriuretic peptide B (Bld) [Mass/Vol] 173 pg/mL <300 [employer] Comment on above: An age-independent cutoff point of 300 pg/ml has a 98% negative predictive value excluding acute heart failure. C-Reactive Proteinon 022 CRP [Mass/Vol] mg/L 0.0 - 5.0 mg/L [facility] CBC with Auto Differentialon 05-20-2021 Absolute Eos # 0.18 [facility] th Absolute Immature Granulocyte 0.03 [facility] Absolute Lymph # 1.75 [facility] alth Absolute Tyrrell # 0.29 [facility] Basophils (Bld) [#/Vol] 0.03 10*3/uL [facility] Basophils/100 WBC (Bld) 0 % 0 - 2 % [facility] Eosinophils/100 WBC (Bld) 3 % 1 - 4 % [facility] Hematocrit (Bld) [Volume fraction] 43.8 % 36.3 - 47.1 % [facility] Hemoglobin.gastrointes tinal spec 1 Ql (Stl) 14.6 g/dL 11.9 - 15.1 g/dL [facility] Immature granulocytes/100 WBC (Bld) 0 % 0 [facility] Interpretation and review of laboratory results Abnormal [facility] Lymphocytes/100 WBC (Bld) 25 % 24 - 43 % [facility] MCH (RBC) [Entitic mass] 29.0 pg 25.2 - 33.5 pg [facility] MCHC (RBC) [Mass/Vol] 33.3 g/dL 28.4 - 34.8 g/dL [facility] MCV (RBC) [Entitic vol] 86.9 fL 82.6 - 102.9 fL [facility] Monocytes/100 WBC (Bld) 4 % 3 - 12 % [facility] NRBC Automated 0.0 0.0 per 100 WBC [facility] Platelet distribution width (Bld) [Ratio] 11.5 % Low 11.8 - 14.4 % [facility] Platelet mean volume (Bld) [Entitic vol] 9.5 fL 8.1 - 13.5 fL [facility] Platelets (Bld) [#/Vol] 242 10*3/uL [facility] RBC (Bld) [#/Vol] 5.04 10*6/uL 3.95 - 5.1 1 m/uL [facility] Segmented neutrophils/100 WBC (Bld) 68 % High 36 - 65 % [facility] Segs Absolute 4.67 [facility] h WBC (Bld) [#/Vol] 7.0 10*3/uL [facility] CT ABDOMEN PELVIS WO CONTRAS T Additional Contrast? Noneon 05-20-2021 1. No acute abdominal or pelvic findings. 2. There is diastasis of the rectus abdominus fascia in the midline lower abdomen measuring up to 3 cm. A loop of colon is seen to protrude into the small defect without evidence of incarceration. 3. Hepatic steatosis [facility] EXAMINATION: CT OF [...] appear within normal limits on today's exam. Peritoneum/Retroperi toneum: The aorta is normal caliber. No lymphadenopathy. Bones/Soft Tissues: There is diastasis of the rectus abdominus fascia in the midline lower abdomen measuring proximally 3 cm. A loop of bowel is seen to protrude into the resulting defect but there is no evidence of incarceration or obstruction. No suspicious osseous lesions. [facility] Jesus Unger P - 05/20/2021 EXAMINATION: [...] appear within normal limits on today's exam. Peritoneum/Retroperi toneum: The aorta is normal caliber. No lymphadenopathy. [...] without evidence of incarceration. 3. Hepatic steatosis Com[employer] Phone: Radiology Study observation (narrative) Comfy Phone: CT ABDOMEN PELVIS WO CONTRAS T Additional Contrast? NoneOrdered By: Jesus Unger on 05-20-2021 Comfy Phone: D-Dimer, Quantitativeon 05-06 D-Dimer, Quant 0.34 [facility] Comment on above: When combined with [...] more prevalent in patients with distal DVT. [facility] Drug screen multi urineon Amphetamine Screen, Ur Negative NEGATIVE [facility] Barbiturate Screen, Ur Negative NEGATIVE [facility] Benzodiazepine Screen, Urine Negative NEGATIVE [facility] Buprenorphine Urine Negative NEGATIVE [facility] Cannabinoid Scrn, Ur Negative NEGATIVE [facility] Cocaine Metabolite, Urine Negative NEGATIVE [facility] Methadone Screen, Urine Negative NEGATIVE [facility] Methamphetamine, Urine Negative NEGATIVE [facility] Opiates, Urine Negative NEGATIVE [facility] th Oxycodone Screen, Ur Negative NEGATIVE [facility] Phencyclidine, Urine Negative NEGATIVE [facility] Propoxyphene, Urine Negative NEGATIVE [facility] Tricyclic Antidepressants, Urine Negative NEGATIVE [facility] Comment on above: Drug screen results are to be used for medical purposes only. All positive results are unconfirmed. Testing for employment or legal uses should be sent to a reference laboratory for confirmation. [facility] EKG 12 LeadOrdered By: Gosia quinn on 05-20-2021 Atrial Rate 51 BPM Comfy Phone: P [place] 56 degrees Comfy Phone: P-R Interval 152 ms Comfy Phone: Q-T Interval 448 ms Comfy Phone: QRS Duration 90 ms Comfy Phone: QTc Calculation (Bazett) 412 ms Comfy Phone: R [place] 79 degrees Comfy Phone: T [place] 62 degrees Comfy Phone: Ventricular Rate 51 BPM [facility] Work Phone: [employer] Work Phone: EKG 12 Leadon 05-20-2021 Sinus bradycardia with sinus arrhythmia T wave abnormality, consider anterior ischemia Abnormal ECG When compared with ECG of 16-APR-2021 20:11, No significant change was found Confirmed by Gosia Rangel MD ([id number]) on 05/20/2021 6:51:52 PM [facility] Gosia Rangel MD - 05/20/2021 Sinus bradycardia with sinus arrhythmia T wave abnormality, consider anterior ischemia Abnormal ECG When compared with ECG of 16-APR-2021 20:11, No significant change was found Confirmed by Gosia Rangel MD ([id number]) on 05/20/2021 6:51:52 PM [employer] Work Phone: Laboratory - Chemistry and C hemistry - challengeon 05-20-2021 GFR/1.73 sq M.predicted MDRD (S/P/Bld) [Vol rate/Area] [facility] Comment on above: Average GFR for 30-3 9 years old: 107 mL/min/1.73sq m Chronic Kidney Disease: <60 mL/min/1.73sq m Kidney failure: <15 mL/min/1.73sq m eGFR calculated using average adult body mass. Additional eGFR calculator available at: http://www.TopChalks/multiple_crcl_2011.htm Stage 1: Some kidney damage normal GFR Stage 2: Mild kidney damage GFR 60-89 Stage 3: Moderate kidney damage GFR 30-59 Stage 4: Severe kidney damage GFR 15-29 Stage 5: Severe kidney damage GFR <15 ESRD - chronic treatment by dialysis or transplant Lactic Acidon 05-20-2021 Lactate [Moles/Vol] 0.9 mmol/L 0.5 - 2. 2 mmol/L [facility] Lipaseon 05-20-2021 Lipase [Catalytic activity/Vol] 46 U/L 13 - 60 U/L [facility] Microscopic Urinalysison - [facility] Bacteria, UA TRACE Abnormal None [facility] Epithelial Cells UA 0 TO 2 [facility] Interpretation and review of laboratory results Abnormal [facility] RBC, UA None [facility] WBC, UA None [facility] No Panel Informationon 05-20 [facility] Sedimentation Rateon 022 Sed Rate 9 [facility] TSH with Reflexon 05-20-2021 TSH Qn 1.20 m[IU]/L [facility] Troponinon 05-20-2021 Troponin, High Sensitivity <6 0 - 14 ng/L [facility] Comment on above: High Sensitivity Troponin values cannot be compared with other Troponin methodologies. Patients with high levels of Biotin oral intake (i.e >5mg/day) may have falsely decreased Troponin levels. Samples collected within 8 hours of biotin intake may require additional information for diagnosis. [facility] Troponin, High Sensitivity <6 0 - 14 ng/L [facility] Comment on above: High Sensitivity Troponin values cannot be compared with other Troponin methodologies. Patients with high levels of Biotin oral intake (i.e >5mg/day) may have falsely decreased Troponin levels. Samples collected within 8 hours of biotin intake may require additional information for diagnosis. Urinalysis with Reflex to Cu ltureon 05-20-2021 Bilirubin Urine Negative NEGATIVE [facility] Color, UA Yellow Yellow [facility] Glucose, Ur Negative NEGATIVE [facility] Interpretation and review of laboratory results Abnormal [facility] Ketones Ql (U) Negative NEGATIVE [facility] Leukocyte esterase Test strip Ql (U) Negative NEGATIVE [facility] Nitrite, Urine Negative NEGATIVE [facility] pH, UA 6.0 [facility] Protein, UA Negative NEGATIVE [facility] Specific [place], UA <1.005 Low [facility] Turbidity UA Clear Clear [facility] Urine Hgb Negative NEGATIVE [facility] Urobilinogen, Urine Normal Normal [facility] XR CHEST PORTABLEon 05-21-19 22 No abnormalities noted. [facility] EXAMINATION: ONE XRAY VIEW OF THE CHEST 05/20/2021 1:33 pm COMPARISON: 04/16/2021 HISTORY: ORDERING SYSTEM PROVIDED HISTORY: chest pain TECHNOLOGIST PROVIDED HISTORY: chest pain FINDINGS: The lungs appear clear. The heart and mediastinal structures are unremarkable. Bony thorax appears normal. Visualized upper abdomen is unremarkable. [facility] Yoel Shabazz MD - 05/20/2021 EXAMINATION: ONE XRAY VIEW OF THE CHEST 05/20/2021 1:33 pm COMPARISON: 04/16/2021 HISTORY: ORDERING SYSTEM PROVIDED HISTORY: chest pain TECHNOLOGIST PROVIDED HISTORY: chest pain FINDINGS: The lungs appear clear. The heart and mediastinal structures are unremarkable. Bony thorax appears normal. Visualized upper abdomen is unremarkable. IMPRESSION: No abnormalities noted. [employer] Work Phone: Radiology Study observation (narrative) [employer] Phone: XR CHEST PORTABLEOrdered By: Yoel Shabazz on 05-20-2021 Com[employer] Phone: Basic Metabolic Panel w/ Ref douglas to MGon 04-16-2021 Anion gap [Moles/Vol] 11 mmol/L 9 - 17 mmol/L [facility] Calcium [Mass/Vol] 9.8 mg/dL 8.6 - 10. 4 mg/dL [facility] Chloride [Moles/Vol] 99 mmol/L 98 - 10 7 mmol/L [employer] CO2 [Moles/Vol] 24 mmol/L 20 - 31 mmol/L [facility] Creatinine [Mass/Vol] 0.85 mg/dL 0.50 - 0.90 mg/dL [employer] GFR >60 >60 mL/min [employer] GFR Non- >60 >60 mL/min [facility] Glucose [Mass/Vol] 97 mg/dL 70 - 99 mg/dL [facility] Interpretation and review of laboratory results Abnormal [facility] Potassium [Moles/Vol] 3.8 mmol/L 3.7 - 5.3 mmol/L [employer] Sodium [Moles/Vol] 134 mmol/L Low 135 - 144 mmol/L [employer] Urea nitrogen (BldV) [Mass/Vol] 9 mg/dL 6 - 20 mg/dL [employer] Urea nitrogen/Creatinine (Bld) [Mass ratio] 11 [employer] C-Reactive Proteinon 022 CRP [Mass/Vol] mg/L 0.0 - 5.0 mg/L [facility] with Auto Differentialon 04-16-2021 Absolute Eos # 0.19 [facility] th Absolute Immature Granulocyte 0.03 [facility] Absolute Lymph # 2.01 [facility] alth Absolute Tyrrell # 0.47 [facility] Basophils (Bld) [#/Vol] 0.05 10*3/uL [facility] Basophils/100 WBC (Bld) 1 % 0 - 2 % [facility] Eosinophils/100 WBC (Bld) 2 % 1 - 4 % [facility] Hematocrit (Bld) [Volume fraction] 44.1 % 36.3 - 47.1 % [facility] Hemoglobin.gastrointes tinal spec 1 Ql (Stl) 14.9 g/dL 11.9 - 15.1 g/dL [facility] Immature granulocytes/100 WBC (Bld) 0 % 0 [facility] Interpretation and review of laboratory results Abnormal [facility] Lymphocytes/100 WBC (Bld) 22 % Low 24 - 43 % [facility] MCH (RBC) [Entitic mass] 29.2 pg 25.2 - 33.5 pg [facility] MCHC (RBC) [Mass/Vol] 33.8 g/dL 28.4 - 34.8 g/dL [facility] MCV (RBC) [Entitic vol] 86.5 fL 82.6 - 102.9 fL [facility] Monocytes/100 WBC (Bld) 5 % 3 - 12 % [facility] NRBC Automated 0.0 0.0 per 100 WBC [facility] Platelet distribution width (Bld) [Ratio] 11.4 % Low 11.8 - 14.4 % [facility] Platelet mean volume (Bld) [Entitic vol] 9.5 fL 8.1 - 13.5 fL [facility] Platelets (Bld) [#/Vol] 265 10*3/uL [facility] RBC (Bld) [#/Vol] 5.10 10*6/uL 3.95 - 5.1 1 m/uL [facility] Segmented neutrophils/100 WBC (Bld) 70 % High 36 - 65 % [facility] Segs Absolute 6.34 [facility] W[facility] (Bld) [#/Vol] 9.1 10*3/uL [facility] CT ABDOMEN PELVIS WO CONTRAS [...] the liver. Previous cholecystectomy without biliary dilatation. [facility] EXAMINATION: CT OF THE ABDOMEN AND [...] no significant free fluid within the pelvis.. Peritoneum/Retroperi toneum: No abdominal aortic aneurysm, retroperitoneal hematoma, or bulky lymphadenopathy. Bones/Soft Tissues: There are degenerative changes in the lumbosacral facets and at the sacroiliac joints. [facility] Michael Frausto - 04/16/2021 EXAMINATION: CT OF THE ABDOMEN AND PELVIS [...] no significant free fluid within the pelvis.. Peritoneum/Retroperi toneum: No abdominal aortic aneurysm, retroperitoneal hematoma, or [...] the liver. Previous cholecystectomy without biliary dilatation. [employer] Work Phone: Radiology Study observation (narrative) Com[employer] Phone: CT ABDOMEN PELVIS WO CONTRAS T Additional Contrast? NoneOrdered By: Michael Frausto on 04-16-2021 Comfy Phone: D-Dimer, Quantitativeon 04-05 D-Dimer, Quant 0.37 [facility] Comment on above: When combined with [...] more prevalent in patients with distal DVT. [facility] Hepatic Function Panelon Albumin [Mass/Vol] 4.7 g/dL 3.5 - 5.2 g/dL [employer] Albumin/Globulin [Mass ratio] 1.8 {ratio} [facility] ALP (Bld) [Catalytic activity/Vol] 73 U/L 35 - 104 U/L [facility] ALT [Catalytic activity/Vol] 24 U/L 5 - 33 U/L [facility] AST [Catalytic activity/Vol] 14 U/L <32 [facility] Bilirubin [Mass/Vol] 0.35 mg/dL 0.3 - 1 .2 mg/dL [facility] Bilirubin, Indirect Can not be calculated 0.00 - 1.00 mg/dL [facility] Bilirubin.indirect [Mass/Vol] mg/dL <0.31 mg/dL [facility] Free PSA/Total PSA [Mass fraction] 7.3 g/dL 6.4 - 8.3 g/dL [facility] Laboratory - Chemistry and C hemistry - challengeon 04-16-2021 GFR/1.73 sq M.predicted MDRD (S/P/Bld) [Vol rate/Area] [facility] Comment on above: Average GFR for 30-3 9 years old: 107 mL/min/1.73sq m Chronic Kidney Disease: <60 mL/min/1.73sq m Kidney failure: <15 mL/min/1.73sq m eGFR calculated using average adult body mass. Additional eGFR calculator available at: http://www.TopChalks/multiple_crcl_2011.htm Stage 1: Some kidney damage normal GFR Stage 2: Mild kidney damage GFR 60-89 Stage 3: Moderate kidney damage GFR 30-59 Stage 4: Severe kidney damage GFR 15-29 Stage 5: Severe kidney damage GFR <15 ESRD - chronic treatment by dialysis or transplant Lipaseon 04-16-2021 Lipase [Catalytic activity/Vol] 29 U/L 13 - 60 U/L [facility] Microscopic Urinalysison - [facility] Bacteria, UA 2+ Abnormal None [facility] Epithelial Cells UA 2 TO 5 [facility] Interpretation and review of laboratory results Abnormal [facility] RBC, UA 0 TO 2 [facility] WBC, UA 2 TO 5 [facility] No Panel Informationon 04-16 [facility] , Urineon 2 Beta HCG ( test) Ql (U) Negative NEGATIVE [facility] Comment on above: Specimens with [...] determined that such clearance is not necessary. [facility] Sedimentation Rateon 022 Sed Rate 13 mm 0 - 20 mm [facility] Troponinon 04-16-2021 Troponin, High Sensitivity <6 0 - 14 ng/L [facility] Comment on above: High Sensitivity Troponin values cannot be compared with other Troponin methodologies. Patients with high levels of Biotin oral intake (i.e >5mg/day) may have falsely decreased Troponin levels. Samples collected within 8 hours of biotin intake may require additional information for diagnosis. [facility] Urinalysis with Reflex to Cu ltureon 04-16-2021 Bilirubin Urine Negative NEGATIVE [facility] Color, UA Yellow Yellow [facility] Glucose, Ur Negative NEGATIVE [facility] Interpretation and review of laboratory results Abnormal [facility] Ketones Ql (U) Negative NEGATIVE [facility] Leukocyte esterase Test strip Ql (U) TRACE Abnormal NEGATIVE [facility] Nitrite, Urine Negative NEGATIVE [facility] pH, UA 6.0 [facility] Protein, UA Negative NEGATIVE [facility] Specific [place], UA 1.015 [facility] Turbidity UA Clear Clear [facility] Urine Hgb Negative NEGATIVE [facility] Urobilinogen, Urine Normal Normal [facility] XR CHEST 1 VIEWon 04-16-2021 Clear lungs. No acute cardiopulmonary abnormality. [facility] EXAMINATION: ONE XRAY VIEW [...] normal limits. No significant thoracic osseous abnormality. [facility] Christy Becerra MD - [...] IMPRESSION: Clear lungs. No acute cardiopulmonary abnormality. [employer] Phone: Radiology Study observation (narrative) [employer] Phone: XR CHEST 1 VIEWOrdered By: Arsenio Becerra on 04-16-2021 Comfy Phone: PULMONARY FUNCTION (450)on 0 03-07-2021 PULMONARY FUNCTION (450) [place] [address] PULMONARY FUNCTION PATIENT NAME: LEANA TRAN : 1985 MED REC NO: [id number] ROOM: ACCOUNT NO: [id number] ADMIT DATE: 03/07/2021 PROVIDER: Moris Alvarado DATE [...] normal at 79% of predicted. MORIS ALVARADO GALILEA/Yancy_TTRAD_I Doc#: [id number] CC: Normal [facility] [id number] 03-07-2021 SARS-CoV-2 (COVID-19) RNA CHRISTI+probe Ql (Unsp spec) Not detected Normal NOTDET [facility] Comment on above: Result Comment: Rapid [...] management decisions. Fact sheet for Healthcare Providers: https://www.fda.gov/media/984062/download Fact sheet for Patients: https://www.fda.gov/media/580342/download Methodology: Isothermal Nucleic Acid Amplification Performed By: #### C OVRB #### [facility] [address] [place] [address] Negative Cleaner: Belén Dale MD Basic Metabolic Panel w/ Ref douglas to MGOrdered By: Araseli Barrett on 11-01-2020 Anion gap [Moles/Vol] 19 mmol/L High 9 - 17 mmol/L [facility] Work Phone: Calcium [Mass/Vol] 9.4 mg/dL 8.6 - 10. 4 mg/dL [facility] [employer] Phone: Chloride [Moles/Vol] 94 mmol/L Low 98 - 10 7 mmol/L [employer] Phone: CO2 [Moles/Vol] 20 mmol/L 20 - 31 mmol/L [employer] Work Phone: Creatinine [Mass/Vol] 1.2 mg/dL High 0.50 - 0.90 mg/dL [employer] Phone: GFR >60 >60 mL/min [employer] Work Phone: GFR Non- 51 mL/min Low >60 [employer] Work Phone: Glucose [Mass/Vol] 217 mg/dL High 70 - 99 mg/dL [employer] Work Phone: Interpretation and review of laboratory results Abnormal [employer] Phone: Potassium [Moles/Vol] 3.5 mmol/L Low 3.7 - 5.3 mmol/L [employer] Work Phone: Sodium [Moles/Vol] 133 mmol/L Low 135 - 144 mmol/L [employer] Phone: Urea nitrogen (BldV) [Mass/Vol] 10 mg/dL 6 - 20 mg/dL [employer] Work Phone: Urea nitrogen/Creatinine (Bld) [Mass ratio] 8 Low [employer] Work Phone: [employer] Work Phone: CBC Auto DifferentialOrdered By: Araseli Barrett on 11-01-2020 Absolute Eos # <0.03 [facility] Work Phone: Absolute Immature Granulocyte 0.33 High [employer] Work Phone: Absolute Lymph # 0.80 Low [facility] Work Phone: Absolute Tyrrell # 0.42 [facility] Work Phone: Basophils (Bld) [#/Vol] 10*3/uL [employer] Work Phone: Basophils/100 WBC (Bld) 0 % 0 - 2 % [employer] Phone: Differential Type NOT REPORTED [employer] Phone: Eosinophils/100 WBC (Bld) 0 % Low 1 - 4 % [employer] Phone: Hematocrit (Bld) [Volume fraction] 42.8 % 36.3 - 47.1 % [employer] Phone: Hemoglobin.gastrointes tinal spec 1 Ql (Stl) 14.7 g/dL 11.9 - 15.1 g/dL [employer] Phone: Immature granulocytes/100 WBC (Bld) 4 % High 0 [employer] Phone: Interpretation and review of laboratory results Abnormal [employer] Phone: Lymphocytes/100 WBC (Bld) 9 % Low 24 - 43 % [employer] Phone: MCH (RBC) [Entitic mass] 30.1 pg 25.2 - 33.5 pg [employer] Phone: MCHC (RBC) [Mass/Vol] 34.3 g/dL 28.4 - 34.8 g/dL [employer] Phone: MCV (RBC) [Entitic vol] 87.5 fL 82.6 - 102.9 fL [employer] Phone: Monocytes/100 WBC (Bld) 5 % 3 - 12 % [employer] Phone: NRBC Automated 0.0 0.0 per 100 WBC [employer] Phone: Platelet distribution width (Bld) [Ratio] 11.4 % Low 11.8 - 14.4 % [employer] Phone: Platelet Estimate NOT REPORTED [employer] Phone: Platelet mean volume (Bld) [Entitic vol] 9.4 fL 8.1 - 13.5 fL Com[employer] Phone: Platelets (Bld) [#/Vol] 207 10*3/uL Com[employer] Phone: RBC (Bld) [#/Vol] 4.89 10*6/uL 3.95 - 5.1 1 m/uL Com[employer] Phone: RBC (Bld) [#/Vol] NOT REPORTED [employer] Phone: Segmented neutrophils/100 WBC (Bld) 82 % High 36 - 65 % [employer] Work Phone: Segs Absolute 7.82 [employer] Work Phone: WBC (Bld) [#/Vol] 9.4 10*3/uL Comfy Phone: WBC (Bld) [#/Vol] NOT REPORTED Com[employer] Phone: Comfy Phone: D-Dimer, QuantitativeOrdered By: Araseli Barrett on 11-01-2020 D-Dimer, Quant <0.27 [employer] Work Phone: Comment on above: When combined [...] more prevalent in patients with distal DVT. Comfy Phone: Laboratory - Chemistry and C hemistry - challengeOrdered By: Araseli Barrett on 11-01-2020 GFR/1.73 sq M.predicted MDRD (S/P/Bld) [Vol rate/Area] Comfy Phone: Comment on above: Average GFR for 30-3 9 years old: 107 mL/min/1.73sq m Chronic Kidney Disease: <60 mL/min/1.73sq m Kidney failure: <15 mL/min/1.73sq m eGFR calculated using average adult body mass. Additional eGFR calculator available at: http://www.[employer]Chal[employer]/Diagnosoft_crcl_2011.htm Stage 1: Some kidney damage normal GFR Stage 2: Mild kidney damage GFR 60-89 Stage 3: Moderate kidney damage GFR 30-59 Stage 4: Severe kidney damage GFR 15-29 Stage 5: Severe kidney damage GFR <15 ESRD - chronic treatment by dialysis or transplant MagnesiumOrdered By: Araseli Barrett on 11-01-2020 Magnesium [Mass/Vol] 1.6 mg/dL 1.6 - 2 .6 mg/dL Comfy Phone: Comfy Phone: TroponinOrdered By: Araseli Barrett on 11-01-2020 Troponin Interp NOT REPORTED [facility] Work Phone: Troponin T NOT REPORTED <0.03 ng/mL [facility] Work Phone: Troponin, High Sensitivity <6 0 - 14 ng/L Comfy Phone: Comment on above: High Sensitivity Troponin values cannot be compared with other Troponin methodologies. Patients with high levels of Biotin oral intake (i.e >5mg/day) may have falsely decreased Troponin levels. Samples collected within 8 hours of biotin intake may require additional information for diagnosis. Comfy Phone: XR CHEST PORTABLEOrdered By: Araseli Barrett on 11-01-[address] [facility] Work Phone: EXAMINATION: ONE XRAY VIEW OF THE CHEST 11/01/2020 2:31 pm COMPARISON: 12/08/2014 HISTORY: ORDERING SYSTEM PROVIDED HISTORY: cough FINDINGS: The lungs are without acute focal process. No effusion or pneumothorax. The cardiomediastinal silhouette is normal. The osseous structures are intact without acute process. Comfy Phone: Oswaldo, [facility] Incoming Radiant Results From [employer] - 11/01/2020 2:41 PM EDT EXAMINATION: ONE XRAY VIEW OF THE CHEST 11/01/2020 2:31 pm COMPARISON: 12/08/2014 HISTORY: ORDERING SYSTEM PROVIDED HISTORY: cough FINDINGS: The lungs are without acute focal process. No effusion or pneumothorax. The cardiomediastinal silhouette is normal. The osseous structures are intact without acute process. IMPRESSION: Negative chest. [employer] Work Phone: Comfy Phone: [facility] 09-15-2020 [facility] Telephone (NEADFV) LEANA TRAN ([id number]) 1985 F Date Time Provider Department 09/15/20 LIS MORAES During your visit today, we recorded the following information about you: Demi Santos 09/15/2020 4:44 PM Signed Received MRI Brain report by fax from [facility]. Scanned to patient's chart. Savanna Juarez RN [...] 1 mg by mouth once daily. - budesonide-formotero l (SYMBICORT) 160-4.5 mcg/actuation inhaler Inhale 2 Puffs [...] Encounter Status:Closed by DEMI JOHNSON on 11/17/20 [facility] 09-06-2020 [facility] Office Visit (NEADFV) LEANA TRAN ([id number]) 1985 F Date Time Provider Department 09/06/20 2:00 PM LIS MORAES During your visit today, we recorded the following information about you: Temperature Pulse Blood pressure Weight 97.8 degrees 67/minute 112/73 102.1 kg Height 1.626 m Lis Moraes MD 09/06/2020 3:10 PM Signed PROGRESS NOTE- HEADACHE SERVICE DATE: September 06, 2020 Location: [facility] Participants: patient and provider [...] 1 mg by mouth once daily. - budesonide-formotero l (SYMBICORT) 160-4.5 mcg/actuation inhaler Inhale 2 Puffs [...] by mouth daily at bedtime. No current facility-administere d medications for this visit. PAST MEDICAL HISTORY [...] Contrast [Con (more content not included)... Normal [facility] Vital Signs Date Time Vital Sign Value Performing Clinician Facility 09-30-2024 08:54-0400 Body height 162.6 cm Margot Limon [employer] Work Phone: [facility] 09-30-2024 08:54-0400 Body mass index (BMI) [Ratio] 39.45 kg/m2 Margot Sonam [employer]OR Work Phone: [facility] 09-30-2024 08:54-0400 Body temperature 97.5 [degF] Margot Sonam [employer] EDITOR Work Phone: [facility] 09-30-2024 08:54-0400 Body weight 104.3 kg Margot Limon [employer] EDITOR Work Phone: [facility] 09-30-2024 08:54-0400 Diastolic blood pressure 80 mm[Hg] Margot Sonam [employer]OR Work Phone: [facility] 09-30-2024 08:54-0400 Heart rate 70 /min Margot Riosod [employer]OD EDITOR Work Phone: [facility] 09-30-2024 08:54-0400 Respiratory rate 16 /min Margot Limon [employer]ER[employer]OD EDITOR Work Phone: [facility] 09-30-2024 08:54-0400 SaO2% (BldA) [Mass fraction] 100 % Margot Sonam [employer] PR[employer]UCER[employer]FOOD EDITOR Work Phone: [facility] 09-30-2024 08:54-0400 Systolic blood pressure 129 mm[Hg] Margot Sonam [employer] EDITOR Work Phone: [facility] 09-25-2024 15:50-0400 Body height 162.6 cm Cas Dowell MD Work Phone: [facility] 09-25-2024 15:50-0400 Body mass index (BMI) [Ratio] 39.14 kg/m2 Cas Dowell MD Work Phone: [facility] 09-25-2024 15:50-0400 Body temperature 97.5 [degF] Cas Dowell MD Work Phone: [facility] 09-25-2024 15:50-0400 Body weight 103.42 kg Cas Dowell MD Work Phone: [facility] 09-25-2024 15:50-0400 Diastolic blood pressure 84 mm[Hg] Cas Dowell MD Work Phone: [facility] 09-25-2024 15:50-0400 Heart rate 67 /min Cas Dowell MD Work Phone: [facility] 09-25-2024 15:50-0400 Respiratory rate 20 /min Cas Dowell MD Work Phone: [facility] 09-25-2024 15:50-0400 SaO2% (BldA) [Mass fraction] 98 % Cas Dowell MD Work Phone: [facility] 09-25-2024 15:50-0400 Systolic blood pressure 138 mm[Hg] Cas Dowell MD Work Phone: [facility] 09-08-2024 11:44-0400 Body height 162.56 cm Cas Dowell MD Work Phone: [facility] 09-08-2024 11:44-0400 Body mass index (BMI) [Ratio] 38.7 kg/m2 Cas Dowell MD Work Phone: [facility] 09-08-2024 11:44-0400 Body temperature 98.3 [degF] Cas Dowell MD Work Phone: [facility] 09-08-2024 11:44-0400 Body weight 102.51 kg Cas Dowell MD Work Phone: [facility] 09-08-2024 11:44-0400 Diastolic blood pressure 75 mm[Hg] Cas Dowell MD Work Phone: [facility] 09-08-2024 11:44-0400 Heart rate 74 /min Cas Dowell MD Work Phone: [facility] 09-08-2024 11:44-0400 Respiratory rate 16 /min Cas Dowell MD Work Phone: [facility] 09-08-2024 11:44-0400 SaO2% (BldA) [Mass fraction] 99 % Cas Dowell MD Work Phone: [facility] 09-08-2024 11:44-0400 Systolic blood pressure 121 mm[Hg] Cas Dowell MD Work Phone: [facility] 08-22-2024 10:23-0400 Body height 162.6 cm Mth 1 [facility] 08-22-2024 10:23-0400 Body mass index (BMI) [Ratio] 38.28 kg/m2 Mth 1 [facility] 08-22-2024 10:23-0400 Body weight 101.2 kg Mth 1 [facility] 08-22-2024 10:23-0400 Diastolic blood pressure 80 mm[Hg] Mth 1 [facility] 08-22-2024 10:23-0400 Systolic blood pressure 133 mm[Hg] Mth 1 [facility] 08-11-2024 09:23-0400 Body height 162.6 cm Cas Dowell MD Work Phone: [facility] 08-11-2024 09:23-0400 Body mass index (BMI) [Ratio] 38.96 kg/m2 Cas Dowell MD Work Phone: [facility] 08-11-2024 09:23-0400 Body temperature 97.5 [degF] Cas Dowell MD Work Phone: [facility] 08-11-2024 09:23-0400 Body weight 102.97 kg Cas Dowell MD Work Phone: [facility] 08-11-2024 09:23-0400 Diastolic blood pressure 68 mm[Hg] Cas Dowell MD Work Phone: [facility] 08-11-2024 09:23-0400 Heart rate 71 /min Cas Dowell MD Work Phone: [facility] 08-11-2024 09:23-0400 Respiratory rate 20 /min Cas Dowell MD Work Phone: [facility] 08-11-2024 09:23-0400 SaO2% (BldA) [Mass fraction] 99 % Cas Dowell MD Work Phone: [facility] 08-11-2024 09:23-0400 Systolic blood pressure 122 mm[Hg] Cas Dowell MD Work Phone: [facility] 02-27-2024 08:18-0500 Body height 162.6 cm Cas Dowell MD Work Phone: [facility] 02-27-2024 08:18-0500 Body mass index (BMI) [Ratio] 37.76 kg/m2 Cas Dowell MD Work Phone: [facility] 02-27-2024 08:18-0500 Body temperature 97.11 [degF] Cas Dowell MD Work Phone: [facility] 02-27-2024 08:18-0500 Body weight 99.79 kg Cas Dowell MD Work Phone: [facility] 02-27-2024 08:18-0500 Diastolic blood pressure 64 mm[Hg] Cas Dowell MD Work Phone: [facility] 02-27-2024 08:18-0500 Heart rate 77 /min Cas Dowell MD Work Phone: [facility] 02-27-2024 08:18-0500 Respiratory rate 20 /min Cas Dowell MD Work Phone: [facility] 02-27-2024 08:18-0500 SaO2% (BldA) [Mass fraction] 98 % Cas Dowell MD Work Phone: [facility] 02-27-2024 08:18-0500 Systolic blood pressure 120 mm[Hg] Cas Dowell MD Work Phone: [facility] 02-11-2024 09:59-0500 Body height 162.6 cm Cas Dowell MD Work Phone: [facility] 02-11-2024 09:59-0500 Body mass index (BMI) [Ratio] 37.93 kg/m2 Cas Dowell MD Work Phone: [facility] 02-11-2024 09:59-0500 Body temperature 97.5 [degF] Cas Dowell MD Work Phone: [facility] 02-11-2024 09:59-0500 Body weight 100.25 kg Cas Dowell MD Work Phone: [facility] 02-11-2024 09:59-0500 Diastolic blood pressure 68 mm[Hg] Cas Dowell MD Work Phone: [facility] 02-11-2024 09:59-0500 Heart rate 90 /min Cas Dowell MD Work Phone: [facility] 02-11-2024 09:59-0500 Respiratory rate 22 /min Cas Dowell MD Work Phone: [facility] 02-11-2024 09:59-0500 SaO2% (BldA) [Mass fraction] 97 % Cas Dowell MD Work Phone: [facility] 02-11-2024 09:59-0500 Systolic blood pressure 120 mm[Hg] Cas Dowell MD Work Phone: [facility] 01-02-2024 10:07-0500 Body height 162.6 cm Marni KOWALSKI Work Phone: [facility] 01-02-2024 10:07-0500 Body mass index (BMI) [Ratio] 38.11 kg/m2 Marni Flowers [employer]ER[employer] EDITOR Work Phone: [facility] 01-02-2024 10:07-0500 Body weight 100.7 kg Marni Flowers [employer] PRODUCER[employer]FOOD EDITOR Work Phone: [facility] 01-02-2024 10:07-0500 Diastolic blood pressure 77 mm[Hg] Marni Flowers [employer] PR[employer]UCER[employer]OD EDITOR Work Phone: [facility] 01-02-2024 10:07-0500 Heart rate 79 /min Marni Flowers [employer] PR[employer]UCER[employer]FOOD EDITOR Work Phone: [facility] 01-02-2024 10:07-0500 Systolic blood pressure 127 mm[Hg] Marni Flowers [employer] PR[employer]UCER[employer]FOOD EDITOR Work Phone: [facility] 11-22-2023 09:01-0400 Body mass index (BMI) [Ratio] 38.42 kg/m2 Akila Yao MD Work Phone: [facility] 11-22-2023 09:01-0400 Body weight 101.52 kg Akila Yao MD Work Phone: [facility] 11-22-2023 09:01-0400 Diastolic blood pressure 84 mm[Hg] Akila Yao MD Work Phone: [facility] 11-22-2023 09:01-0400 Heart rate 59 /min Akila Yao MD Work Phone: [facility] 11-22-2023 09:01-0400 Systolic blood pressure 124 mm[Hg] Akila Yao MD Work Phone: [facility] 11-20-2023 11:40-0400 Body mass index (BMI) [Ratio] 38.11 kg/m2 Rubens Glenroy DO Work Phone: [facility] 11-20-2023 11:40-0400 Body weight 100.7 kg Rubens Glenroy DO Work Phone: [facility] 11-20-2023 11:40-0400 Diastolic blood pressure 80 mm[Hg] Rubens Glenroy DO Work Phone: [facility] 11-20-2023 11:40-0400 Systolic blood pressure 120 mm[Hg] Rubens Glenroy DO Work Phone: [facility] 11-07-2023 10:33-0400 Body height 162.6 cm Christy Painting MD Work Phone: [facility] 11-07-2023 10:33-0400 Body mass index (BMI) [Ratio] 37.93 kg/m2 Christy Painting MD Work Phone: [facility] 11-07-2023 10:33-0400 Body weight 100.25 kg Christy Painting MD Work Phone: [facility] 10-10-2023 09:06-0400 Body height 162.6 cm Cas Dowell MD Work Phone: [facility] 10-10-2023 09:06-0400 Body mass index (BMI) [Ratio] 37.76 kg/m2 Cas Dowell MD Work Phone: [facility] 10-10-2023 09:06-0400 Body temperature 97.81 [degF] Cas Dowell MD Work Phone: [facility] 10-10-2023 09:06-0400 Body weight 99.79 kg Cas Dowell MD Work Phone: [facility] 10-10-2023 09:06-0400 Diastolic blood pressure 78 mm[Hg] Cas Dowell MD Work Phone: [facility] 10-10-2023 09:06-0400 Heart rate 82 /min Cas Dowell MD Work Phone: [facility] 10-10-2023 09:06-0400 Respiratory rate 20 /min Cas Dowell MD Work Phone: [facility] 10-10-2023 09:06-0400 SaO2% (BldA) [Mass fraction] 98 % Cas Dowell MD Work Phone: [facility] 10-10-2023 09:06-0400 Systolic blood pressure 122 mm[Hg] Cas Dowell MD Work Phone: [facility] 10-02-2023 14:46-0400 Blood Pressure Location Selma Orzech [facility] 10-02-2023 14:46-0400 Body temperature 98.6 [degF] Selma Orzech [facility] 10-02-2023 14:46-0400 Diastolic blood pressure 84 mm[Hg] Selma Orzech [facility] 10-02-2023 14:46-0400 Heart rate 68 /min Selma Orzech [facility] 10-02-2023 14:46-0400 Respiratory rate 16 /min Selma Orzech [facility] 10-02-2023 14:46-0400 Systolic blood pressure 130 mm[Hg] Selma Orzech [facility] 10-01-2023 09:45-0400 Body height 162.6 cm Fuentes Amaral MD Work Phone: [facility] 10-01-2023 09:45-0400 Body mass index (BMI) [Ratio] 37.82 kg/m2 Fuentes Amaral MD Work Phone: [facility] 10-01-2023 09:45-0400 Body temperature 97 [degF] Fuentes Amaral MD Work Phone: [facility] 10-01-2023 09:45-0400 Body weight 100 kg Fuentes Amaral MD Work Phone: [facility] 10-01-2023 09:45-0400 Diastolic blood pressure 84 mm[Hg] Fuentes Amaral MD Work Phone: [facility] 10-01-2023 09:45-0400 Heart rate 71 /min Fuentes Amaral MD Work Phone: [facility] 10-01-2023 09:45-0400 Respiratory rate 16 /min Fuentes Amaral MD Work Phone: [facility] 10-01-2023 09:45-0400 SaO2% (BldA) [Mass fraction] 99 % Fuentes Amaral MD Work Phone: [facility] 10-01-2023 09:45-0400 Systolic blood pressure 123 mm[Hg] Fuentes Amaral MD Work Phone: [facility] 09-26-2023 09:28-0400 Body height 162.6 cm Cas Dowell MD Work Phone: [facility] 09-26-2023 09:28-0400 Body mass index (BMI) [Ratio] 38.11 kg/m2 Cas Dowell MD Work Phone: [facility] 09-26-2023 09:28-0400 Body temperature 97.81 [degF] Cas Dowell MD Work Phone: [facility] 09-26-2023 09:28-0400 Body weight 100.7 kg Cas Dowell MD Work Phone: [facility] 09-26-2023 09:28-0400 Diastolic blood pressure 68 mm[Hg] Cas Dowell MD Work Phone: [facility] 09-26-2023 09:28-0400 Heart rate 63 /min Cas Dowell MD Work Phone: [facility] 09-26-2023 09:28-0400 Respiratory rate 18 /min Cas Dowell MD Work Phone: [facility] 09-26-2023 09:28-0400 SaO2% (BldA) [Mass fraction] 99 % Cas Dowell MD Work Phone: [facility] 09-26-2023 09:28-0400 Systolic blood pressure 122 mm[Hg] Cas Dowell MD Work Phone: [facility] 05-08-2023 08:47-0400 Body mass index (BMI) [Ratio] 36.9 kg/m2 Sarah Best [employer] EDITOR Work Phone: [facility] 05-08-2023 08:47-0400 Body weight 97.52 kg Sarah Best [employer] PRODUCER[employer] EDITOR Work Phone: [facility] 05-08-2023 08:47-0400 Diastolic blood pressure 87 mm[Hg] Sarah Best [employer] PR[employer]UCER[employer] EDITOR Work Phone: [facility] 05-08-2023 08:47-0400 Heart rate 63 /min Sarah Best [employer] PR[employer]UCER[employer]FO[employer] EDITOR Work Phone: [facility] 05-08-2023 08:47-0400 Systolic blood pressure 134 mm[Hg] Sarah Best [employer] PR[employer]UCER[employer] EDITOR Work Phone: [facility] 10-02-2022 09:29-0400 Body height 162.6 cm Fuentes Amaral MD Work Phone: [facility] 10-02-2022 09:29-0400 Body temperature 97.7 [degF] Fuentes Amaral MD Work Phone: [facility] 10-02-2022 09:29-0400 Body weight 100.15 kg Fuentes Amaral MD Work Phone: [facility] 10-02-2022 09:29-0400 Diastolic blood pressure 79 mm[Hg] Fuentes Amaral MD Work Phone: [facility] 10-02-2022 09:29-0400 Heart rate 58 /min Fuentes Amaral MD Work Phone: [facility] 10-02-2022 09:29-0400 Respiratory rate 16 /min Fuentes Amaral MD Work Phone: [facility] 10-02-2022 09:29-0400 SaO2% (BldA) [Mass fraction] 99 % Fuentes Amaral MD Work Phone: [facility] 10-02-2022 09:29-0400 Systolic blood pressure 140 mm[Hg] Fuentes Amaral MD Work Phone: [facility] 09-05-2022 08:23-0400 Blood Pressure Location LORAINEJEANETTE BURNHAM [facility] 09-05-2022 08:23-0400 Diastolic blood pressure 79 mm[Hg] LORAINEJEANETTE BURNHAM [facility] 09-05-2022 08:23-0400 Heart rate 60 /min LORAINE BURNHAM [facility] 09-05-2022 08:23-0400 Systolic blood pressure 133 mm[Hg] LORAINE BURNHAM [facility] 04-03-2022 10:39-0500 Body height 162.6 cm Fuentes Amaral MD Work Phone: [facility] 04-03-2022 10:39-0500 Body temperature 97.9 [degF] Fuentes Amaral MD Work Phone: [facility] 04-03-2022 10:39-0500 Body weight 99.34 kg Fuentes Amaral MD Work Phone: [facility] 04-03-2022 10:39-0500 Diastolic blood pressure 65 mm[Hg] Fuentes Amaral MD Work Phone: [facility] 04-03-2022 10:39-0500 Heart rate 74 /min Fuentes Amaral MD Work Phone: [facility] 04-03-2022 10:39-0500 Respiratory rate 16 /min Fuentes Amaral MD Work Phone: [facility] 04-03-2022 10:39-0500 SaO2% (BldA) [Mass fraction] 98 % Fuentes Amaral MD Work Phone: [facility] 04-03-2022 10:39-0500 Systolic blood pressure 147 mm[Hg] Fuentes Amaral MD Work Phone: [facility] 02-28-2022 08:30-0500 Blood Pressure Location LORAINE BURNHAM [facility] 02-28-2022 08:30-0500 Diastolic blood pressure 83 mm[Hg] LORAINE TEJ [facility] 02-28-2022 08:30-0500 Heart rate 74 /min LORAINE TEJ [facility] 02-28-2022 08:30-0500 Respiratory rate 16 /min LORAINE TEJ [facility] 02-28-2022 08:30-0500 Systolic blood pressure 121 mm[Hg] LORAINE TEJ [facility] 02-10-2022 14:07-0500 Body height 162.6 cm Fuentes Amaral MD Work Phone: [facility] 02-10-2022 14:07-0500 Body temperature 97.9 [degF] Fuentes Amaral MD Work Phone: [facility] 02-10-2022 14:07-0500 Body weight 98.25 kg Fuentes Amaral MD Work Phone: [facility] 02-10-2022 14:07-0500 Diastolic blood pressure 59 mm[Hg] Fuentes Amaral MD Work Phone: [facility] 02-10-2022 14:07-0500 Heart rate 97 /min Fuentes Amaral MD Work Phone: [facility] 02-10-2022 14:07-0500 Respiratory rate 16 /min Fuentes Amaral MD Work Phone: [facility] 02-10-2022 14:07-0500 SaO2% (BldA) [Mass fraction] 99 % Fuentes Amaral MD Work Phone: [facility] 02-10-2022 14:07-0500 Systolic blood pressure 124 mm[Hg] Fuentes Amaral MD Work Phone: [facility] 2021 08:48-0500 Blood Pressure Location LORAINE BURNHAM [facility] 2021 08:48-0500 Diastolic blood pressure 77 mm[Hg] LORAINE BURNHAM [facility] 2021 08:48-0500 Heart rate 81 /min LORAINE BURNHAM [facility] 2021 08:48-0500 Systolic blood pressure 118 mm[Hg] LORAINE BURNHAM [facility] 11-18-2021 13:44-0400 Body height 162.6 cm Fuentes Amaral MD Work Phone: [facility] 11-18-2021 13:44-0400 Body temperature 97.81 [degF] Fuentes Amaral MD Work Phone: [facility] 11-18-2021 13:44-0400 Body weight 101.24 kg Fuentes Amaral MD Work Phone: [facility] 11-18-2021 13:44-0400 Diastolic blood pressure 73 mm[Hg] Fuentes Amaral MD Work Phone: [facility] 11-18-2021 13:44-0400 Heart rate 66 /min Fuentes Amaral MD Work Phone: [facility] 11-18-2021 13:44-0400 Respiratory rate 16 /min Fuentes Amaral MD Work Phone: [facility] 11-18-2021 13:44-0400 SaO2% (BldA) [Mass fraction] 100 % Fuentes Amaral MD Work Phone: [facility] 11-18-2021 13:44-0400 Systolic blood pressure 121 mm[Hg] Fuentes Amaral MD Work Phone: [facility] 11-03-2021 10:37-0400 Body height 162.6 cm Fuentes Amaral MD Work Phone: [facility] 11-03-2021 10:37-0400 Body temperature 97.59 [degF] Fuentes Amaral MD Work Phone: [facility] 11-03-2021 10:37-0400 Body weight 99.97 kg Fuentes Amaral MD Work Phone: [facility] 11-03-2021 10:37-0400 Diastolic blood pressure 63 mm[Hg] Fuentes Amaral MD Work Phone: [facility] [facility] 11-03-2021 10:37-0400 Heart rate 59 /min Fuentes Amaral MD Work Phone: [facility] 11-03-2021 10:37-0400 Respiratory rate 16 /min Fuentes Amaral MD Work Phone: [facility] 11-03-2021 10:37-0400 SaO2% (BldA) [Mass fraction] 99 % Fuentes Amaral MD Work Phone: [facility] 11-03-2021 10:37-0400 Systolic blood pressure 120 mm[Hg] Fuentes Amaral MD Work Phone: [facility] 09-27-2021 08:00-0400 Body height 162.6 cm [place]m [place] Work Phone: [facility] 09-27-2021 08:00-0400 Body weight 99.79 kg [place] [place] Work Phone: [facility] 09-21-2021 15:37-0400 Body height 160 cm Ruth Villaseñor MD Work Phone: [facility] 09-21-2021 15:37-0400 Body temperature 97.5 [degF] Ruth Villaseñor MD Work Phone: [facility] 09-21-2021 15:37-0400 Body weight 100.61 kg Ruth Villaseñor MD Work Phone: [facility] 09-21-2021 15:37-0400 Diastolic blood pressure 72 mm[Hg] Ruth Villaseñor MD Work Phone: [facility] 09-21-2021 15:37-0400 Heart rate 72 /min Ruth Villaseñor MD Work Phone: [facility] 09-21-2021 15:37-0400 SaO2% (BldA) [Mass fraction] 97 % Ruth Villaseñor MD Work Phone: [facility] 09-21-2021 15:37-0400 Systolic blood pressure 131 mm[Hg] Ruth Villaseñor MD Work Phone: [facility] 09-19-2021 13:59-0400 Body temperature 98.29 [degF] Landen Mahmood [employer]OTIONS PRODUCER.FOOD EDITOR Work Phone: [facility] 09-19-2021 13:59-0400 Body weight 99.79 kg Landen Mahmood [employer]OMOTIONS PRODUCER.FOOD EDITOR Work Phone: [facility] 09-19-2021 13:59-0400 Diastolic blood pressure 53 mm[Hg] Landen Timoteo [employer]OTIONS PRODUCER.FOOD EDITOR Work Phone: [facility] 09-19-2021 13:59-0400 Heart rate 70 /min Landen Rootn [employer]OMOTIONS PRODUCER.FOOD EDITOR Work Phone: [facility] 09-19-2021 13:59-0400 Respiratory rate 18 /min Landen Rootn [employer]OMOTIONS PRODUCER.FOOD EDITOR Work Phone: [facility] 09-19-2021 13:59-0400 SaO2% (BldA) [Mass fraction] 98 % Landen Mahmood [employer]OMOTIONS PRODUCER.FOOD EDITOR Work Phone: [facility] 09-19-2021 13:59-0400 Systolic blood pressure 128 mm[Hg] Landen Mahmood [employer]OMOTIONS PRODUCER.FOOD EDITOR Work Phone: [facility] 09-05-2021 15:55-0400 Diastolic blood pressure 50 mm[Hg] Christine Abraham DO Work Phone: [employer] 09-05-2021 15:55-0400 Heart rate 103 /min Christine Abraham DO Work Phone: [facility] 09-05-2021 15:55-0400 Respiratory rate 28 /min Christine Abraham DO Work Phone: [facility] 09-05-2021 15:55-0400 SaO2% (BldA) [Mass fraction] 96 % Christine Abraham DO Work Phone: [facility] 09-05-2021 15:55-0400 Systolic blood pressure 115 mm[Hg] Christine Abraham DO Work Phone: [facility] 09-05-2021 13:29-0400 Body height 162.6 cm Christine Abraham DO Work Phone: [employer] 09-05-2021 13:29-0400 Body mass index (BMI) [Ratio] 37.25 kg/m2 Christine Abraham DO Work Phone: [facility] 09-05-2021 13:29-0400 Body temperature 98.2 [degF] Christine Abraham DO Work Phone: [facility] 09-05-2021 13:29-0400 Body weight 98.43 kg Christine Abraham DO Work Phone: [facility] 08-15-2021 08:54-0400 Body height 162.6 cm Berlin Avila III, MD Work Phone: [facility] 08-15-2021 08:54-0400 Body weight 98.84 kg Berlin Avila III, MD Work Phone: [facility] 08-12-2021 10:00-0400 Body height 162.6 cm Settlement [employer] Work Phone: [facility] 08-12-2021 10:00-0400 Body weight 98 kg Settlement [employer]or Work Phone: [facility] 08-12-2021 10:00-0400 Diastolic blood pressure 72 mm[Hg] Settlement Processor Work Phone: [facility] 08-12-2021 10:00-0400 Heart rate 79 /min Settlement Processor Work Phone: [facility] 08-12-2021 10:00-0400 Systolic blood pressure 108 mm[Hg] Settlement Processor Work Phone: [facility] 07-25-2021 09:30-0400 Body height 162.6 cm Henny Rushing MD Work Phone: [facility] 07-25-2021 09:30-0400 Body temperature 97.2 [degF] Henny Rushing MD Work Phone: [facility] 07-25-2021 09:30-0400 Body weight 97.48 kg Henny Rushing MD Work Phone: [facility] 07-25-2021 09:30-0400 Diastolic blood pressure 62 mm[Hg] Henny Rushing MD Work Phone: [facility] 07-25-2021 09:30-0400 Heart rate 83 /min Henny Rushing MD Work Phone: [facility] 07-25-2021 09:30-0400 Respiratory rate 14 /min Henny Rushing MD Work Phone: [facility] 07-25-2021 09:30-0400 SaO2% (BldA) [Mass fraction] 99 % Henny Rushing MD Work Phone: [facility] 07-25-2021 09:30-0400 Systolic blood pressure 104 mm[Hg] Henny Rushing MD Work Phone: [facility] 07-22-2021 14:12-0400 Body height 162.6 cm Yan Bass MD Work Phone: [facility] 07-22-2021 14:12-0400 Body temperature 97.5 [degF] Yan Bass MD Work Phone: [facility] 07-22-2021 14:12-0400 Body weight 97.98 kg Yan Bass MD Work Phone: [facility] 07-22-2021 14:12-0400 Diastolic blood pressure 79 mm[Hg] Yan Bass MD Work Phone: [facility] 07-22-2021 14:12-0400 Heart rate 71 /min Yan Bass MD Work Phone: [facility] 07-22-2021 14:12-0400 Respiratory rate 16 /min Yan Bass MD Work Phone: [facility] 07-22-2021 14:12-0400 SaO2% (BldA) [Mass fraction] 97 % Yan Bass MD Work Phone: [facility] 07-22-2021 14:12-0400 Systolic blood pressure 129 mm[Hg] Yan Bass MD Work Phone: [facility] 07-21-2021 13:36-0400 Respiratory rate 20 /min Sai Perez MD Work Phone: [facility] 07-21-2021 13:36-0400 SaO2% (BldA) [Mass fraction] 100 % Sai Perez MD Work Phone: [facility] 07-21-2021 13:29-0400 Diastolic blood pressure 67 mm[Hg] Sai Perez MD Work Phone: [facility] 07-21-2021 13:29-0400 Heart rate 62 /min Sai Perez MD Work Phone: [facility] 07-21-2021 13:29-0400 Systolic blood pressure 130 mm[Hg] Sai Perez MD Work Phone: [facility] 07-14-2021 10:40-0400 Diastolic blood pressure 75 mm[Hg] Aldo Ann MD Work Phone: [facility] 07-14-2021 10:40-0400 Heart rate 74 /min Aldo Ann MD Work Phone: [facility] 07-14-2021 10:40-0400 SaO2% (BldA) [Mass fraction] 98 % Aldo Ann MD Work Phone: [facility] 07-14-2021 10:40-0400 Systolic blood pressure 128 mm[Hg] Aldo Ann MD Work Phone: [facility] 07-06-2021 12:39-0400 Body height 162.6 cm Tracee Mcintyre MD Work Phone: [facility] 07-06-2021 12:39-0400 Body weight 97.52 kg Tracee Mcintyre MD Work Phone: [facility] 07-06-2021 12:39-0400 Diastolic blood pressure 68 mm[Hg] Tracee Mcintyre MD Work Phone: [facility] 07-06-2021 12:39-0400 Heart rate 61 /min Tracee Mcintyre MD Work Phone: [facility] 07-06-2021 12:39-0400 Respiratory rate 16 /min Tracee Mcintyre MD Work Phone: [facility] 07-06-2021 12:39-0400 SaO2% (BldA) [Mass fraction] 99 % Tracee Mcintyre MD Work Phone: [facility] 07-06-2021 12:39-0400 Systolic blood pressure 111 mm[Hg] Tracee Mcintyre MD Work Phone: [facility] 07-01-2021 10:02-0400 Body height 162.6 cm Yan Bass MD Work Phone: [facility] 07-01-2021 10:02-0400 Body temperature 97.59 [degF] Yan Bass MD Work Phone: [facility] 07-01-2021 10:02-0400 Body weight 97.98 kg Yan Bass MD Work Phone: [facility] 07-01-2021 10:02-0400 Diastolic blood pressure 97 mm[Hg] Yan Bass MD Work Phone: [facility] 07-01-2021 10:02-0400 Heart rate 87 /min Yan Bass MD Work Phone: [facility] 07-01-2021 10:02-0400 Respiratory rate 16 /min Yan Bass MD Work Phone: [facility] 07-01-2021 10:02-0400 SaO2% (BldA) [Mass fraction] 99 % Yan Bass MD Work Phone: [facility] 07-01-2021 10:02-0400 Systolic blood pressure 138 mm[Hg] Yan Bass MD Work Phone: [facility] 06-27-2021 11:45-0400 Diastolic blood pressure 70 mm[Hg] Peter Knight APRN.FOOD EDITOR Work Phone: [facility] 06-27-2021 11:45-0400 Heart rate 96 /min Peter Knight APRN.FOOD EDITOR Work Phone: [facility] 06-27-2021 11:45-0400 Respiratory rate 20 /min Peter Knight APRN.FOOD EDITOR Work Phone: [facility] 06-27-2021 11:45-0400 SaO2% (BldA) [Mass fraction] 99 % Peter Knight APRN.FOOD EDITOR Work Phone: [facility] 06-27-2021 11:45-0400 Systolic blood pressure 147 mm[Hg] Peter Knight APRN.FOOD EDITOR Work Phone: [facility] 06-27-2021 11:30-0400 Body temperature 98.1 [degF] Peter Knight APRN.[facility] Work Phone: [facility] 06-27-2021 10:53-0400 Body height 162.6 cm Peter Knight APRN.FOOD EDITOR Work Phone: [facility] 06-27-2021 10:53-0400 Body weight 95.71 kg Peter Knight APRN.[facility] Work Phone: [facility] 06-21-2021 01:00-0400 Diastolic blood pressure 84 mm[Hg] Sean Andes DO Work Phone: [facility] 06-21-2021 01:00-0400 Heart rate 87 /min Sean Andes DO Work Phone: [facility] 06-21-2021 01:00-0400 Respiratory rate 21 /min Sean Andes DO Work Phone: [facility] 06-21-2021 01:00-0400 SaO2% (BldA) [Mass fraction] 90 % Sean Andes DO Work Phone: [facility] 06-21-2021 01:00-0400 Systolic blood pressure 121 mm[Hg] Sean Andes DO Work Phone: [facility] 06-21-2021 00:04-0400 Body temperature 98.6 [degF] Sean Andes DO Work Phone: [facility] 06-14-2021 09:07-0400 Body height 162.6 cm Jackelyn Marques MD Work Phone: [facility] 06-14-2021 09:07-0400 Body weight 96.66 kg Jackelyn Marques MD Work Phone: [facility] 06-14-2021 09:07-0400 Diastolic blood pressure 80 mm[Hg] Jackelyn Marques MD Work Phone: [facility] 06-14-2021 09:07-0400 Heart rate 71 /min Jackelyn Marques MD Work Phone: [facility] 06-14-2021 09:07-0400 Systolic blood pressure 126 mm[Hg] Jackelyn Marques MD Work Phone: [facility] 06-10-2021 09:45-0400 Body height 162.6 cm Yan Bass MD Work Phone: [facility] 06-10-2021 09:45-0400 Body temperature 97.39 [degF] Yan Bass MD Work Phone: [facility] 06-10-2021 09:45-0400 Body weight 97.61 kg Yan Bass MD Work Phone: [facility] 06-10-2021 09:45-0400 Diastolic blood pressure 50 mm[Hg] Yan Bass MD Work Phone: [facility] 06-10-2021 09:45-0400 Heart rate 64 /min Yan Bass MD Work Phone: [facility] 06-10-2021 09:45-0400 Respiratory rate 16 /min Yan Bass MD Work Phone: [facility] 06-10-2021 09:45-0400 SaO2% (BldA) [Mass fraction] 100 % Yan Bass MD Work Phone: [facility] 06-10-2021 09:45-0400 Systolic blood pressure 124 mm[Hg] Yan Bass MD Work Phone: [facility] 06-04-2021 19:43-0400 Diastolic blood pressure 49 mm[Hg] Brian Santana MD Work Phone: [facility] 06-04-2021 19:43-0400 Heart rate 69 /min Brian Santana MD Work Phone: [facility] 06-04-2021 19:43-0400 Respiratory rate 23 /min Brian Santana MD Work Phone: [facility] 06-04-2021 19:43-0400 SaO2% (BldA) [Mass fraction] 92 % Brian Santana MD Work Phone: [facility] 06-04-2021 19:43-0400 Systolic blood pressure 106 mm[Hg] Brian Santana MD Work Phone: [facility] 06-04-2021 16:26-0400 Body mass index (BMI) [Ratio] 36.22 kg/m2 Brian Santana MD Work Phone: [facility] 06-04-2021 16:26-0400 Body temperature 98.4 [degF] Brian Santana MD Work Phone: [facility] 06-04-2021 16:26-0400 Body weight 95.71 kg Brian Santana MD Work Phone: [facility] 05-20-2021 18:43-0400 Diastolic blood pressure 51 mm[Hg] Cas Dowell MD Work Phone: [facility] 05-20-2021 18:43-0400 Heart rate 53 /min Cas Dowell MD Work Phone: [facility] 05-20-2021 18:43-0400 Respiratory rate 16 /min Cas Dowell MD Work Phone: [facility] 05-20-2021 18:43-0400 SaO2% (BldA) [Mass fraction] 96 % Cas Dowell MD Work Phone: [facility] 05-20-2021 18:43-0400 Systolic blood pressure 112 mm[Hg] Cas Dowell MD Work Phone: [facility] 05-20-2021 12:55-0400 Body height 162.6 cm Cas Dowell MD Work Phone: [facility] 05-20-2021 12:55-0400 Body mass index (BMI) [Ratio] 36.22 kg/m2 Cas Dowell MD Work Phone: [facility] 05-20-2021 12:55-0400 Body weight 95.71 kg Cas Dowell MD Work Phone: [facility] 04-16-2021 19:39-0500 Body temperature 97.39 [degF] Mike Stevenson MD [facility] 04-16-2021 19:39-0500 Diastolic blood pressure 89 mm[Hg] Mike Stevenson MD [facility] 04-16-2021 19:39-0500 Heart rate 55 /min Mike Stevenson MD [facility] 04-16-2021 19:39-0500 Respiratory rate 15 /min Mike Stevenson MD [facility] 04-16-2021 19:39-0500 SaO2% (BldA) [Mass fraction] 98 % Mike Stevenson MD [facility] 04-16-2021 19:39-0500 Systolic blood pressure 131 mm[Hg] Mike Stevenson MD [facility] 11-01-2020 17:24-0400 SaO2% (BldA) [Mass fraction] 94 % Araseli Barrett MD Work Phone: [facility] Work Phone: 11-01-2020 16:20-0400 Diastolic blood pressure 73 mm[Hg] Araseli Barrett MD Work Phone: [facility] Work Phone: 11-01-2020 16:20-0400 Systolic blood pressure 142 mm[Hg] Araseli Barrett MD Work Phone: [facility] Work Phone: 11-01-2020 15:48-0400 Body temperature 101.61 [degF] Araseli Barrett MD Work Phone: [facility] Work Phone: 11-01-2020 13:32-0400 Body mass index (BMI) [Ratio] 37.76 kg/m2 Araseli Barrett MD Work Phone: [facility] Work Phone: 11-01-2020 13:32-0400 Body weight 99.79 kg Araseli Barrett MD Work Phone: [facility] Work Phone: 11-01-2020 13:32-0400 Heart rate 91 /min Araseli Barrett MD Work Phone: [facility] Work Phone: 11-01-2020 13:32-0400 Respiratory rate 22 /min Araseli Barrett MD Work Phone: [facility] Work Phone: 06-13-2020 05:10-0400 Diastolic blood pressure 73 mm[Hg] Kody Cm MD Work Phone: [facility] Work Phone: 06-13-2020 05:10-0400 Systolic blood pressure 131 mm[Hg] Kody Cm MD Work Phone: [facility] Work Phone: 06-13-2020 05:09-0400 Body temperature 96.8 [degF] Kody Cm MD Work Phone: [facility] Work Phone: 06-13-2020 05:09-0400 Heart rate 74 /min Kody Cm MD Work Phone: [facility] Work Phone: 06-13-2020 05:09-0400 Respiratory rate 12 /min Kody Cm MD Work Phone: [facility] Work Phone: 06-13-2020 05:09-0400 SaO2% (BldA) [Mass fraction] 97 % Kody Cm MD Work Phone: [employer] Phone: Encounters Encounter Date Encounter Type Care Provider Facility Start: 10-09-2024 ambulatory Selma X Orzech Facilit y:[facility] Start: 09-30-2024 End: 09-30-2024 Clinisync Result Encounter Generic External Data Provider [facility] External Department Unsolicited Start: 09-30-2024 End: 09-30-2024 Clinisync Result Encounter Generic External Data Provider [facility] External Department Unsolicited Start: 09-30-2024 End: 09-30-2024 Office outpatient visit 15 minutes Margot Limon APRN.CNP Work Phone: Hematology/Oncology Comment on above: POTS (postural ortho static tachycardia syndrome) (Primary Dx); Bleeding disorder; Qualitative platelet disorder (HCC); Systemic lupus erythematosus, unspecified SLE type, unspecified organ involvement status (HCC); Celiac disease (HCC); Irritable bowel syndrome without diarrhea; History of 2019 novel coronavirus disease (COVID-19); Status post hysterectomy Start: 09-30-2024 End: 09-30-2024 ambulatory FUENTESMARCIE CORTEZLAKE Facility:[facility] Start: 09-29-2024 End: 09-29-2024 Clinisync Result Encounter Cas Dowell MD Work Phone: [facility] External Department Unsolicited Start: 09-29-2024 End: 09-29-2024 Clinisync Result Encounter Cas Dowell MD Work Phone: [facility] External Department Unsolicited Start: 09-26-2024 ambulatory [facility] Start: 09-25-2024 End: 09-25-2024 Office outpatient visit 25 minutes Cas Dowell MD Work Phone: [facility] Comment on above: Chronic rhinosinusit is (Primary Dx); Right wrist pain; Right forearm pain Start: 09-25-2024 End: 09-25-2024 ambulatory CAS DOWELL Not Available Start: 09-25-2024 End: 09-25-2024 Bamboo flowsheet Cas Dowell MD Work Phone: [facility] Start: 09-25-2024 End: 09-25-2024 Bamboo flowsheet Cas Dowell MD Work Phone: [facility] Start: 09-15-2024 End: 09-15-2024 Refill Marni Flowers [employer]OMOTIONS PRODUCER-FOOD EDITOR [facility] Comment on above: Migraine without aur a and without status migrainosus, not intractable Start: 09-08-2024 End: 09-08-2024 ambulatory Cas Dowell MD Work Phone: [facility] Work Phone: Start: 09-08-2024 End: 09-08-2024 Patient encounter procedure Oliva Aruna Becerra [employer]UCER [facility] Work Phone: Start: 08-27-2024 ambulatory ABIEL MATTHEW [facility] Start: 08-22-2024 End: 08-24-2024 ambulatory MACRINA WADSWORTH [facility] Start: 08-22-2024 End: 08-24-2024 Subsequent hospital visit by physician [facility] Comment on above: Edema, unspecified t ype; Palpitations with regular cardiac rhythm Start: 08-21-2024 ambulatory STEPHON CRONIN [facility] Start: 08-12-2024 End: 08-12-2024 ambulatory MACRINA WADSWORTH [facility] Start: 08-11-2024 End: 08-11-2024 Bamboo flowsheet Cas Dowell MD Work Phone: [facility] Start: 08-11-2024 End: 08-11-2024 Bamboo flowsheet Cas Dowell MD Work Phone: [facility] Start: 08-11-2024 End: 08-11-2024 Clinisync Result Encounter Cas Dowell MD Work Phone: [facility] External Department Unsolicited Start: 08-11-2024 End: 08-11-2024 Patient encounter procedure Cas Dowell MD Work Phone: [facility] Work Phone: Start: 08-11-2024 End: 08-11-2024 Periodic preventive med est patient 40-64yrs Cas Dowell MD Work Phone: [facility] Comment on above: Annual physical exam (Primary Dx); Type 2 diabetes mellitus with hyperglycemia, without long-term current use of insulin (HCC); Primary hypothyroidism ; Edema of both legs Start: 08-11-2024 End: 08-11-2024 Refill Marni Flowers APRN-FOOD EDITOR Work Phone: [facility], A Department of [facility] Comment on above: Migraine without aur a and without status migrainosus, not intractable Start: 07-09-2024 ambulatory [facility] Start: 07-08-2024 End: 07-08-2024 Bamboo flowsheet Jodi Mazariegos PA Work Phone: [facility] Start: 07-08-2024 End: 07-08-2024 Bamboo flowsheet Jodi Mazariegos PA Work Phone: [facility] Start: 07-08-2024 End: 07-08-2024 Office outpatient visit 25 minutes Jodi Mazariegos PA Work Phone: [facility] Comment on above: Melanocytic nevus of trunk (Primary Dx); Other specified dermatitis; Dermatofibroma of right upper extremity Start: 07-08-2024 End: 07-08-2024 ambulatory JODI MAZARIEGOS Not Available Start: 07-01-2024 End: 07-01-2024 Office outpatient visit 15 minutes Marni Flowers [employer]OMOTIONS PRODUCER-FOOD EDITOR Work Phone: [facility], A Department of [facility] Comment on above: 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 Comment on above: Med Refill Start: 05-13-2024 ambulatory [facility] Start: 05-08-2024 End: 05-08-2024 ambulatory Phillip Thomas Facility:[facility] Start: 05-01-2024 End: 05-07-2024 Clinisync Result Encounter Generic External Data Provider [facility] External Department Unsolicited Start: 05-01-2024 End: 05-07-2024 Clinisync Result Encounter Generic External Data Provider [facility] External Department Unsolicited Start: 05-01-2024 End: 05-01-2024 Refill Akila Yao MD Work Phone: [facility] Comment on above: Hypothyroidism due t o Cesar's thyroiditis Start: 04-18-2024 End: 05-02-2024 Clinisync Result Encounter Generic External Data Provider [facility] External Department Unsolicited Start: 04-18-2024 End: 05-02-2024 Clinisync Result Encounter Generic External Data Provider [facility] External Department Unsolicited Start: 04-15-2024 ambulatory [facility] Start: 03-30-2024 End: 03-31-2024 Refill Akila Yao MD [facility] Comment on above: Hypothyroidism due t o Cesar's thyroiditis Start: 02-27-2024 End: 02-27-2024 Bamboo flowsheet Cas Dowell MD Work Phone: [facility] Start: 02-27-2024 End: 02-27-2024 Bamboo flowsheet Cas Dowell MD Work Phone: [facility] Start: 02-27-2024 End: 02-27-2024 Office outpatient visit 15 minutes Cas Dowell MD Work Phone: [facility] Comment on above: COVID-19 (Primary Dx ); Moderate persistent asthma without complication (CMS/HCC) Start: 02-27-2024 End: 02-27-2024 ambulatory CAS DOWELL Not Available Start: 02-22-2024 End: 02-22-2024 Refill Chayo Smith MD Work Phone: [facility] Start: 02-20-2024 End: 02-22-2024 Clinisync Result Encounter Generic External Data Provider [facility] External Department Unsolicited Start: 02-20-2024 End: 02-22-2024 Clinisync Result Encounter Generic External Data Provider [facility] External Department Unsolicited Start: 02-18-2024 ambulatory [facility] Start: 02-11-2024 End: 02-11-2024 Bamboo flowsheet [...] insulin (CMS/HCC) (Primary Dx); Autonomic dysfunction; Chronic [id number] syndrome; Moderate persistent asthma without complication (CMS/HCC); Chronic allergic rhinitis due to pollen; Edema of both legs; MDD (major depressive disorder), recurrent episode, mild (HCC) (CMS/HCC); Class 2 severe obesity due to excess calories with serious comorbidity and body mass index (BMI) of 37.0 to 37.9 in adult (CMS/HCC); Gastroesophageal reflux disease without esophagitis Start: 02-05-2024 End: 02-05-2024 ambulatory AKILA Dung YAO [facility] Start: 01-23-2024 ambulatory [facility] Start: 01-18-2024 ambulatory [facility] Start: 01-07-2024 ambulatory [facility] Start: 01-02-2024 End: 01-02-2024 Telephone encounter Marni KOWALSKI Work Phone: [facility] Start: 01-02-2024 End: 01-02-2024 Office outpatient visit 25 minutes Marni KOWALSKI Work Phone: [facility] Comment on above: Migraine without aur a and without status migrainosus, not intractable (Primary Dx); 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; 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; Cervicalgia; Hypersomnia with sleep apnea; Memory difficulties; KATELIN (obstructive sleep apnea); Trapezius muscle spasm; Word finding difficulty Start: 01-02-2024 End: 01-02-2024 ambulatory [facility] Start: 01-01-2024 End: 01-01-2024 ambulatory Phillip Guerra [facility] Facility:[facility] Start: 12-27-2023 End: 12-27-2023 ambulatory IVORY Bowden [facility] Start: 12-27-2023 End: 12-27-2023 Subsequent hospital visit by physician Cas Dowell MD Work Phone: [facility] Start: 12-27-2023 End: 12-27-2023 Clinisync Result Encounter Generic External Data Provider [facility] External Department Unsolicited Start: 12-27-2023 End: 12-27-2023 Clinisync Result Encounter Generic External Data Provider [facility] External Department Unsolicited Start: 12-19-2023 ambulatory ABIEL VIPUL [facility] Start: 12-19-2023 End: 12-19-2023 ambulatory NABOR Bowden [facility] Start: 12-19-2023 End: 12-19-2023 Subsequent hospital visit by physician [facility] Pulmonary Function Room [facility] PFT Comment on above: Moderate asthma with out complication, unspecified whether persistent Start: 12-06-2023 End: 12-06-2023 Refill Marni Flowers PROMOTIONS PRODUCER-FOOD EDITOR Work Phone: [facility] Start: 11-30-2023 End: 11-30-2023 ambulatory Phillip Melendezer Facility:[facility] Start: 11-26-2023 End: 11-26-2023 Clinisync Result Encounter [...] Start: 11-22-2023 End: 11-22-2023 ambulatory AKILA YAO [facility] Ambulatory [facility] Start: 11-20-2023 End: 11-20-2023 [...] RUBENS TIM Not Available Start: 11-19-2023 ambulatory [facility] Start: 11-07-2023 End: 11-07-2023 Bamboo flowshansa Painting [...] Not Available Start: 11-06-2023 ambulatory STEPHON CRONIN [facility] Start: 10-30-2023 End: 10-31-2023 Refill Marni Flowers APRN-FOOD EDITOR Work Phone: [facility] Start: 10-23-2023 End: 10-23-2023 Orders Only Cas Dowell MD Work Phone: [facility] Start: 10-15-2023 ambulatory [facility] Start: 10-10-2023 End: 10-10-2023 Bamboo flowsheet Cas Dowell MD Work Phone: [facility] Start: 10-10-2023 End: 10-10-2023 Bamboo flowsheet Cas Dowell MD Work Phone: [facility] Start: 10-10-2023 End: 10-10-2023 ambulatory MACRINA WADSWORTH [facility] Start: 10-10-2023 End: 10-10-2023 Office outpatient visit 25 minutes Cas Dowell MD Work Phone: [facility] Comment on above: Type 2 diabetes johanna itus with hyperglycemia, without long-term current use of insulin (CMS/HCC) (Primary Dx); Chronic [id number] syndrome; Moderate persistent asthma without complication (CMS/HCC); Chronic allergic rhinitis due to pollen; Edema of both legs Start: 10-10-2023 End: 10-10-2023 ambulatory CAS DOWELL Not Available Start: 10-05-2023 ambulatory ABIEL MATTHEW [facility] Start: 10-02-2023 End: 10-02-2023 Patient encounter procedure Selma Choe [facility] Start: 10-01-2023 End: 10-01-2023 Clinisync Result Encounter Generic External Data Provider [facility] External Department Unsolicited Start: 10-01-2023 End: 10-01-2023 Clinisync Result Encounter Generic External Data Provider [facility] External Department Unsolicited Start: 10-01-2023 End: 10-01-2023 Office outpatient visit 15 minutes Fuentes Amaral MD Work Phone: Hematology/Oncology Comment on above: Qualitative platelet disorder (HCC) (Primary Dx); POTS (postural orthostatic tachycardia syndrome) Start: 09-26-2023 End: 09-26-2023 Bamboo flowsheet Cas Dowell MD Work Phone: [facility] Start: 09-26-2023 End: 09-26-2023 Bamboo flowsheet Cas Dowell MD Work Phone: [facility] Start: 09-26-2023 End: 09-26-2023 Office outpatient visit 15 minutes Cas Dowell MD Work Phone: [facility] CW FM Comment on above: Allergic reaction, s ubsequent encounter (Primary Dx); Body mass index (BMI) 38.0-38.9, adult Start: 09-24-2023 End: 09-24-2023 Refill Akila Yao MD Work Phone: [facility] Comment on above: Hypothyroidism due t o Cesar's thyroiditis Start: 09-08-2023 End: 09-10-2023 Refill Terri Smith MD Work Phone: [facility] Comment on above: Chronic sinusitis Start: 08-07-2023 End: 08-07-2023 Refill Marni Flowers PROMOTIONS PRODUCER-FOOD EDITOR Work Phone: [facility] Start: 07-24-2023 End: 07-24-2023 Refill Marni Flowers PROMOTIONS PRODUCER-FOOD EDITOR Work Phone: [facility] Start: 07-05-2023 End: 07-05-2023 Office outpatient visit 25 minutes Marni Lionel PROMOTIONS PRODUCER-FOOD EDITOR Work Phone: [facility] Comment on above: Migraine without aur a and without status migrainosus, not intractable (Primary Dx); 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; Word finding difficulty; Autonomic dysfunction; Cervicalgia Start: 07-05-2023 End: 07-05-2023 ambulatory [facility] Ambulatory [facility] Start: 05-08-2023 End: 05-08-2023 Office outpatient visit 15 minutes Sarah Best PROMOTIONS PRODUCER-FOOD EDITOR Work Phone: [facility] Comment on above: 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) Start: 05-08-2023 End: 05-08-2023 ambulatory SARAH BEST [facility] Ambulatory [facility] Start: 03-12-2023 Orders Only Cas Horner Work Phone: [facility] Comment on above: Moderate persistent asthma without complication (CMS/HCC) (Primary Dx) Start: 03-04-2023 Orders Only Marni BUSTOS RN-FOOD EDITOR Work Phone: [facility] Start: 02-04-2023 Refill Marni BUSTOS RN-FOOD EDITOR Work Phone: [facility] Start: 10-02-2022 End: 10-02-2022 Office outpatient visit 15 minutes Fuentes Amaral MD Work Phone: Hematology/Oncology Comment on above: Qualitative platelet disorder (HCC) (Primary Dx); Bleeding disorder (HCC); Coagulopathy (HCC) Start: 09-05-2022 End: 09-05-2022 Patient encounter procedure LORAINE BURNHAM [facility] Start: 06-15-2022 End: 06-16-[address] [...] End: 04-26-2022 Telemedicine consultation with patient Bhargavi Ramesh PA-C Work Phone: [facility] Start: 04-17-2022 End: 04-18-2022 [facility] Fuentes Amaral MD Work Phone: Hematology/Oncology [...] Start: 03-29-2022 End: 03-30-2022 ambulatory FUENTES AMARAL Facility[facility] Start: 03-21-2022 Telephone encounter Manda León RN Hematology/Oncology Comment on above: Orders; Appointment Start: 03-16-2022 End: 03-17-2022 ambulatory FUENTES MUNIR [facility] Start: 02-28-2022 End: 02-28-2022 Patient encounter procedure LORAINE BURNHAM [facility] Start: 02-27-2022 Patient Update Tesfaye Whitman [facility] Home Delivery Comment on above: Patient [...] by physician Cas Dowell MD Work Phone: [facility] Laboratory Start: 02-16-2022 Telephone encounter Manda León RN Hematology/Oncology Comment on above: Orders Start: 02-15-2022 End: 03-15-2022 ambulatory BLACKBURN H FAWWAD Facility:[facility] Start: 02-13-2022 End: 02-13-2022 Patient encounter procedure Meena Grissom MD Work Phone: Neurology Comment on above: No-show for appointm ent (Primary Dx) Start: 02-13-2022 End: 02-13-2022 Telemedicine consultation with patient Meena Grissom MD Work Phone: [facility] Start: 02-10-2022 End: 02-10-2022 Visit (SP) Office Fuentes Amaral MD Work Phone: Hematology/Oncology Comment on above: Qualitative platelet disorder (HCC) (Primary Dx); Bleeding disorder (HCC) Start: 02-01-2022 Telephone encounter [facility] Work Phone: Neurology Comment on above: Appointment (Downloa d Pap Therapy Follow Up-) Start: 01-23-2022 End: 01-23-2022 Patient encounter procedure Marcell WALTERS [facility] Start: 01-16-2022 End: 01-16-2022 ambulatory Bhargavi Ramesh PA-C Work Phone: Neurology Comment on above: Migraine without aur a and without status migrainosus, not intractable (Primary Dx) Start: 01-16-2022 End: 01-16-2022 Telemedicine consultation with patient Bhargavi Ramesh PA-C Work Phone: [facility] Start: 12-24-2021 End: 12-25-[address] BELÉN ANDRADE Facility:[facility] Start: 2021 End: 2021 Patient encounter procedure LORAINE BURNHAM [facility] Start: 12-20-2021 Telephone encounter Dayanna olvera [facility] Work Phone: [facility] Comment on above: Results Start: 12-17-2021 Encounter for genera l adult medical examination without abnormal findings DR CAS DOWELL [facility] Start: 12-15-2021 Chart abstracting [facility] [...] fro m caregiver Farzaneh Steward RN [facility] Start: 11-18-2021 End: 11-18-2021 Visit (SP) Office Fuentes Amaral MD Work Phone: Hematology/Oncology Comment on above: Breast screening (Pr imary Dx); Qualitative platelet disorder (HCC) Start: 11-16-2021 End: 11-16-2021 Telephone encounter Meena Grissom MD Work Phone: Neurology Comment on above: Client Finance Analyst - O ther (Download) KATELIN on CPAP [...] patient Meena Grissom MD Work Phone: [facility] Start: 11-15-2021 Telephone encounter [facility] Work Phone: Neurology Comment on above: Appointment (Downloa d Pap Therapy Follow UP) Start: 11-14-2021 End: 11-14-[address] BELÉN ANDRADE Facility: Start: 11-10-2021 End: 11-11-2021 [facility] Fuentes Amaral MD Work Phone: Hematology/Oncology [...] with patient Henny Rushing MD Work Phone: [facility] Start: 10-20-2021 End: 10-20-2021 ambulatory Micheal Perez MD Work Phone: Cardiology Comment on above: Palpitations (Primar y Dx); Symptomatic bradycardia; Orthostatic lightheadedness; Diffuse pain; Blood pressure instability; Decreased activity tolerance; Orthostatic intolerance; Moderate persistent asthma without complication; Physical deconditioning Start: 10-20-2021 End: 10-20-2021 Telemedicine consultation with patient Micheal Perez MD Work Phone: [facility] Start: 10-19-2021 End: 10-19-2021 ambulatory Bhargavi Ramesh PA-C Work Phone: Neurology Comment on above: Chronic migraine wit hout aura, intractable, without status migrainosus (Primary Dx) Start: 10-19-2021 End: 10-19-2021 Telemedicine consultation with patient Bhargavi Gadiel HEREDIA Work Phone: [facility] Start: 10-19-2021 End: 10-20-[address] HUSAM KIM Facility: Start: 10-14-2021 End: 10-14-2021 ambulatory Judith Valdes PSYD Work Phone: [facility] Comment on above: Depression, unspecif ied depression type (Primary Dx); Anxiety; Abnormal involuntary movement Start: 10-14-2021 End: 10-14-2021 Telemedicine consultation with patient Judith Valdes PSYD Work Phone: [facility] Start: 10-12-2021 End: 10-12-2021 ambulatory Ruth Villaseñor MD Work Phone: Rheumatology Comment on above: Malaise and fatigue (Primary Dx); Lymphadenopathy Start: 10-12-2021 End: 10-12-2021 Telemedicine consultation with patient Ruth Villaseñor MD Work Phone: [facility] Start: 09-30-2021 ambulatory Landen Mahmood APR, N.CNP Work Phone: Pulmonary Medicine Comment on above: Breast testing Start: 09-30-2021 End: 09-30-2021 Subsequent hospital visit by physician Xr Chest Main A21 Radiology Comment on above: History of COVID-19 [Z86.16] Start: 09-27-2021 End: 09-27-2021 ambulatory Puluna Rico Work Phone: Pulmonary Lab Comment on above: Spirometry Start: 09-27-2021 End: 09-27-2021 Patient encounter procedure [facility] [place] Work Phone: [facility] Start: 09-23-2021 ambulatory Landen Mahmood APR, N.CNP Work Phone: Pulmonary Medicine Comment on above: Breathing test Start: 09-22-2021 End: 09-23-2021 ambulatory Landen Mahmood APRN.CNP Work Phone: Pulmonary Medicine Comment on above: Ct scan results Start: 09-22-2021 Telephone encounter Landen Mahmood APRN.CNP Work Phone: Pulmonary Medicine Comment on above: Results Start: 09-21-2021 End: 09-21-2021 Patient encounter procedure Ruth Villaseñor MD Work Phone: Rheumatology Comment on above: Bone pain (Primary D x); Malaise and fatigue; Lymphadenopathy Start: 09-21-2021 End: 09-22-[address] CAS DOWELL Facility:[facility] Start: 09-19-2021 End: 09-19-2021 Patient encounter procedure Landen Mahmood APRN.CNP Work Phone: Pulmonary Medicine Comment on above: 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); History of COVID-19; SOB (shortness of breath); Chronic cough; Chest discomfort; Palpitation; CAVANAUGH (dyspnea on exertion); Dizziness; Near syncope; Night sweats; Orthopnea; Anxiety; Myalgia; Pain in joint, multiple sites; Mass of left axilla Start: 09-19-2021 Telephone encounter Landen Mahmood APRN.CNP Work Phone: Pulmonary Medicine Comment on above: Client Finance Analyst - O ther Start: 09-16-2021 End: 09-16-2021 ambulatory Judith Valdes PSYD Work Phone: [facility] Comment on above: Depression, unspecif ied depression type (Primary Dx); Anxiety; Abnormal involuntary movement Start: 09-16-2021 End: 09-16-2021 Telemedicine consultation with patient Judith Gutierrezjanet HILLS Work Phone: [facility] Start: 09-05-2021 End: 09-05-2021 Emergency department patient visit Christine Abraham DO Work Phone: [facility] Comment on above: Allergic reaction, i nitial encounter (Primary Dx) Start: 08-30-2021 End: 08-30-2021 [facility] Ayaka Bright MD Work Phone: [facility] Comment on above: Long COVID (Primary Dx); Diffuse pain; Decreased activity tolerance; PTSD (post-traumatic stress disorder) CT scan results sent Start: 08-23-2021 Telephone encounter Shelbie Umaña PA-C Work Phone: General Surgery Comment on above: Results - Ct Start: 08-23-2021 End: 08-23-2021 ambulatory Peter Knight FOOD EDITOR Work Phone: Neurology Comment on above: Diffuse pain (Primar y Dx); Decreased activity tolerance; Physical deconditioning; Orthostatic intolerance Start: 08-23-2021 End: 08-23-2021 Telemedicine consultation with patient Peter Knight APRN.FOOD EDITOR Work Phone: [facility] Start: 08-19-2021 End: 08-19-2021 Subsequent hospital visit by physician Transportation Bl [address] Radiology Comment on above: Chronic RLQ pain [R1 0.31, G89.29] Start: 08-18-2021 ambulatory Mike Zayas MD Work Phone: Kidney Medicine [facility] Start: 08-18-2021 Patient encounter procedure Mike Zayas MD Work Phone: [facility] Start: 08-17-2021 ambulatory [facility] Facility: [facility] Start: 08-17-2021 End: 08-17-2021 Subsequent hospital visit by physician [facility] Echocardiology Testing Comment on above: Symptomatic bradycar aziza [R00.1] Start: 08-16-2021 Orders Only Berlin Avila MD Work Phone: Radiology Comment on above: Chronic RLQ pain (Pr imary Dx) Start: 08-15-2021 Telephone encounter Jenni cassidy RN Work Phone: [facility] Home Delivery Comment on above: Insurance Authorizat ion (Emgality 120MG/ML syringes (migraine)) Start: 08-15-2021 End: 08-15-2021 Patient encounter procedure Berlin Avila MD Work Phone: General Surgery Comment on above: Chronic RLQ pain (Pr imary Dx); Diastasis recti Start: 08-12-2021 End: 08-12-2021 ambulatory Daniela Stewart PT Work Phone: [facility] Comment on above: Intractable chronic migraine without aura and without status migrainosus; Abnormal involuntary movement Start: 08-12-2021 End: 08-12-2021 Patient encounter procedure Settlement Processor Work Phone: Kidney Medicine [facility] Comment on above: White coat syndrome with hypertension (Primary Dx) Start: 08-05-2021 End: 08-05-2021 ambulatory Bhargavi Ramesh PA-C Work Phone: Neurology Comment on above: Chronic migraine wit hout aura, intractable, without status migrainosus (Primary Dx) Start: 08-05-2021 End: 08-05-2021 Telemedicine consultation with patient Bhargavi Gadiel HEREDIA Work Phone: [facility] Start: 08-03-2021 End: 08-03-[address] RUBENS TIM . Facility: Start: 07-29-2021 End: 07-29-2021 ambulatory Lisethkiersten Gutierrezjanet HILLS Work Phone: [facility] Comment on above: Depression, unspecif ied depression type (Primary Dx); Anxiety; Intractable chronic migraine without aura and without status migrainosus; Abnormal involuntary movement Start: 07-29-2021 End: 07-29-2021 Telemedicine consultation with patient Judith Gutierrezjanet HILLS Work Phone: [facility] Start: 07-25-2021 End: 07-25-2021 Patient [...] 07-18-2021 End: 07-18-2021 [facility] Work Phone: [facility] Medicine Comment on above: Screening for endocr ine disorder Start: 07-15-2021 End: 07-15-2021 [facility] Work Phone: Genetic [facility] Comment on above: Bleeding disorder (H CC) (Primary Dx); Coagulopathy (HCC); Qualitative platelet disorder (HCC) Start: 07-14-2021 End: 07-14-2021 Patient encounter procedure Aldo Ann MD Work Phone: Otolaryngology Comment on above: Allergy, initial enc ounter (Primary Dx); Headaches Start: 07-06-2021 End: 07-06-2021 Patient encounter procedure Tracee Mcintyre MD Work Phone: [facility] Comment on above: Intractable chronic migraine without [...] End: 06-27-2021 Patient encounter procedure Peter Knight APRN.FOOD EDITOR Work Phone: Neurology Comment on above: Worsening headaches (Primary Dx); Maxillary sinus cyst; Muscle spasms of lower extremity, unspecified laterality; Akathisia; Blurred vision; Chorea Start: 06-24-2021 End: 06-25-[address] VIKASH BECKHAM . Facility: Start: 06-22-2021 ambulatory Peter Knight APRN.FOOD EDITOR Work Phone: Neurology Comment on above: Legs Start: 06-20-2021 End: 06-21-2021 Emergency department patient visit Seantd Moses Work Phone: [facility] Comment on above: Spasm of muscle (Hannah bhumika Dx); Acute nonspecific chest pain with low risk of coronary artery disease Start: 06-16-2021 Telephone encounter Yan Bass MD Work Phone: Hematology/Oncology Comment on above: Results Start: 06-16-2021 ambulatory PETER KNIGHT Facility :[facility] Start: 06-14-2021 Telephone encounter Jackelyn [...] encounter procedure Autonomic 2 Neur Main [facility] Start: 06-13-2021 ambulatory Peter Knight APRN.FOOD EDITOR Work Phone: Neurology Comment on above: Blood results Start: 06-10-2021 End: 06-10-2021 ambulatory Yan Bass MD Work Phone: Hematology/Oncology Comment on above: Coagulopathy (HCC) ( Primary Dx) Start: 06-10-2021 End: 06-10-2021 Patient encounter procedure Yan Bass MD Work Phone: [facility] Start: 06-08-2021 Chart abstracting Yan tran MD Work Phone: Hematology/Oncology Start: 06-04-2021 End: 06-04-2021 Emergency department patient visit Brian Santana MD Work Phone: [facility] Comment on above: Urticaria (Primary D x); Moderate persistent asthma with exacerbation Start: 05-31-2021 Telephone encounter Peter bermeo APRN.CNP Work Phone: Neurology Comment on above: Received Outside Med ical Records ([facility]) Start: 05-20-2021 End: 05-20-2021 Emergency department patient visit Cas Dowell MD Work Phone: [facility] Comment on above: Chest pain, unspecif ied type (Primary Dx); Abdominal pain, acute, right lower quadrant Start: 04-16-2021 End: 04-16-2021 Emergency department patient visit Mike Stevenson MD [facility] Comment on above: Intractable nausea a nd vomiting (Primary Dx); Hydrosalpinx; Left ovarian cyst Start: 03-07-2021 End: 03-08-2021 ambulatory CAS DOWELL [facility] Start: 03-06-2021 End: 03-07-2021 ambulatory CAS DOWELL [facility] Start: 11-01-2020 End: 11-01-2020 Emergency department patient visit Araseli Barrett MD Work Phone: [facility] Comment on above: COVID-19 (Primary Dx ) Start: 06-13-2020 End: 06-13-2020 Emergency department patient visit Kody Cm MD Work Phone: [facility] Comment on above: Strain of lumbar reg ion, initial encounter (Primary Dx) Procedures Date Procedure Procedure Detail Performing Clinician Start: 09-30-2024 [facility] CBC W AUTO DIFF BLD Generic External Data Provider Start: 09-29-2024 End: 09-29-2024 Radex forearm 2 views Cas Dowell MD Work Phone: Start: 09-08-2024 Plain X-ray of right forearm Cas almonte MD Work Phone: Start: 08-22-2024 Echo tthrc r-t 2d w/wom-mode compl spec&colr d Macrina Wadsworth PROMOTIONS PRODUCER - FOOD EDITOR Work Phone: Start: 08-11-2024 ALL CBC WITH AUTO DIFF Cas Dowell MD Work Phone: Start: 05-01-2024 ALL DHEA SULFATE Rubens Glenroy DO Work Phone: Start: 05-01-2024 SRMCOH TESTOSTERONE FREE/TOT EQUILIB Rubens Glenroy DO Work Phone: Start: 04-18-2024 ALLERGENS W/COMP RFLX AREA 5 Generic Ext ernal Data Provider Start: 02-20-2024 BLOOD CULTURE 2 Generic External Data Provider Start: 02-20-2024 BLOOD CULTURE 1 Generic External Data Provider Start: 02-11-2024 MLR HEMOGLOBIN A1C Cas Dowell MD Work Phone: Start: 12-27-2023 Antibody rubella Ivory Ordaz PROMOTIONS PRODUCER - FOOD EDITOR Work Phone: Start: 12-27-2023 MHPT RUBELLA AB, IGG Generic External Data Provider Start: 12-19-2023 Brncdilat rspse spmtry pre&post-brncdilat admn Nabor Yancey PROMOTIONS PRODUCER - FOOD EDITOR Work Phone: Start: 11-26-2023 ALL THYROXINE (T4) FREE Generic External Data Provider Start: 11-20-2023 IGP,APTIMA HPV,AGE GDLN Rubens Glenroy DO Work Phone: Start: 10-01-2023 [facility] CBC W AUTO DIFF BLD Generic External Data Provider Start: 08-31-2023 Mammography Generic Provider Start: 05-08-2023 Follow-up visit Follow-up SARAH BEST Start: 01-31-2023 Esophagogastroduodenoscopy Selma Choe Start: 01-04-2023 Adult depression screening assessment Marni Flowers APRN-FOOD EDITOR Work Phone: Start: 01-01-2023 Hemoglobin glycosylated a1c [...] Radiologic exam chest 2 views Landen Mahmood PROMOTIONS PRODUCER.FOOD EDITOR Work Phone: Start: 09-27-2021 End: 09-27-2021 Co diffusing capacity Landen Mahmood APRN.FOOD EDITOR Work Phone: Start: 09-14-2021 Adult depression screening assessment Judith Valdes PSYD Work Phone: Start: 08-19-2021 Us pelvic nonobstetric image dcmtn limited/f/u Berlin Avila MD Work Phone: Start: 08-17-2021 Echo tthrc r-t 2d w/wom-mode compl spec&colr d Christy Santos MD Work Phone: Start: 08-17-2021 LVEF ECHO Sai Perez MD Work Phone: Start: 07-29-2021 Adult depression screening assessment [facility] Work Phone: Start: 07-18-2021 Adrenocorticotropic hormone [...] routine ecg w/least 12 lds w/i&r Sean [employer] DO Work Phone: Start: 06-20-2021 Adult depression screening assessment Peter Knight PROMOTIONS PRODUCER.FOOD EDITOR Work Phone: Start: 06-04-2021 RESPIRATORY CARE EVALUATION ONLY Brian Santana MD Work Phone: Start: 05-20-2021 Assay of troponin quantitative Shanna Rivas PROMOTIONS PRODUCER - FOOD EDITOR Work Phone: Start: 05-20-2021 Ct abdomen & pelvis w/o contrast material Shanna Rivas PROMOTIONS PRODUCER - FOOD EDITOR Work Phone: Start: 05-20-2021 Drug screen class list a Shanna Lee y PROMOTIONS PRODUCER - FOOD EDITOR Work Phone: Start: 05-20-2021 Urinalysis microscopic only Shanna verduzco PROMOTIONS PRODUCER - FOOD EDITOR Work Phone: Start: 05-20-2021 Urnls dip stick/tablet rgnt auto w/o microscopy Shanna Rivas PROMOTIONS PRODUCER - FOOD EDITOR Work Phone: Start: 05-20-2021 Radiologic exam chest single view Adryan Rivas PROMOTIONS PRODUCER - FOOD EDITOR Work Phone: Start: 05-20-2021 Assay of lactate Shanna Rivas PROMOTIONS PRODUCER - FOOD EDITOR Work Phone: Start: 05-20-2021 BASIC METABOLIC PANEL W/ REFLEX TO MG FOR LOW K Shanna Rivas PROMOTIONS PRODUCER - FOOD EDITOR Work Phone: Start: 05-20-2021 C-reactive protein Shanna Rivas PROMOTIONS PRODUCER - FOOD EDITOR Work Phone: Start: 05-20-2021 Ecg routine ecg w/least 12 lds w/i&r Araseli Barrett MD Work Phone: Start: 05-19-2021 Adult depression screening assessment Peter Guzzo PROMOTIONS PRODUCER.FOOD EDITOR Work Phone: Start: 04-16-2021 Ct abdomen & pelvis w/o contrast material Shanna Rivas PROMOTIONS PRODUCER - FOOD EDITOR Work Phone: Start: 04-16-2021 Radiologic exam chest single view Adryan Rivas PROMOTIONS PRODUCER - FOOD EDITOR Work Phone: Start: 04-16-2021 Ecg routine ecg w/least 12 lds w/i&r Shanna Bishop Evelyn PROMOTIONS PRODUCER - FOOD EDITOR Work Phone: Start: 04-16-2021 Urinalysis microscopic only Shanna verduzco PROMOTIONS PRODUCER - FOOD EDITOR Work Phone: Start: 04-16-2021 Urine test visual color cmprsn meths Shanna Rivas PROMOTIONS PRODUCER - FOOD EDITOR Work Phone: Start: 04-16-2021 Assay of lipase Shanna Rivas PROMOTIONS PRODUCER - FOOD EDITOR Work Phone: Start: 04-16-2021 BASIC METABOLIC PANEL W/ REFLEX TO MG FOR LOW K Shanna Bishop Evelyn PROMOTIONS PRODUCER - FOOD EDITOR Work Phone: Start: 04-16-2021 Hepatic function panel Shanna Bishop Evelyn PROMOTIONS PRODUCER - FOOD EDITOR Work Phone: Start: 02-10-2021 H/O: hysterectomy History [...] LORAINE BURNHAM Start: 04-08-2009 Laparoscopic cholecystostomy LORAINE PE RRY Appendectomy LORAINE BURNHAM section LORAINE PE RRY Colonoscopy Selma Orzech Endometrial ablation Selma Orzech Esophagogastroduodenoscopy A urora Orzech H/O: hysterectomy Status post hysterectomy Margot Limon PROMOTIONS PRODUCER.FOOD EDITOR Work Phone: Insertion of cardiac monitoring implant using fluoroscopic guidance Selma Orzech Laparoscopic lysis of adhesions Selma Orzech Ligation of fallopian tube J DELIA BURNHAM Nasal septoplasty LORAINE P ERRY Tympanostomy LORAINE BURNHAM Plan of Treatment Date Care Activity Detail Author Start: 12-17-2025 Glaucoma screening Diabetes: Retinopathy Screening [facility] Start: 09-29-2025 End: 09-29-2025 Follow-up encounter 09/29/2025 9:30 AM EDT Visit (SP) Office Hematology/Oncology [address] [place] [address] [place] [address] Margot Limon APRN.FOOD EDITOR [address] [place] [address] [place] [address] 1 year follow up Hematology/Oncology Comment on above: 1 year follow up Start: 09-29-2025 End: 09-29-2025 Patient encounter procedure 09/29/2025 9:15 AM EDT Office Visit [facility] [address] [place] [address] [place] [address] 1 year follow up [facility] Comment on above: 1 year follow up Start: 07-08-2025 End: 07-08-2025 Patient encounter procedure [facility] Start: 02-11-2025 End: 02-11-2025 Patient encounter procedure 02/11/2025 9:00 AM EST Office Visit [facility] [address] [place] [address] Cas Dowell MD [address] [place] [address] [facility] Start: 01-01-2025 Adult BMI Screening Adult BMI Screening [facility] Start: 01-01-2025 Tobacco Screening Tobacco Screening [facility] Start: 12-26-2024 End: 12-26-2024 Patient encounter procedure 12/26/2024 10:30 AM EST Office Visit [facility] Neurology, A Department of [facility] [address] [address] Marni Flowers, [facility] [address] [address] [facility] Neurology, A Department of [facility] Start: 12-01-2024 End: 12-01-2024 Patient encounter procedure [facility] Start: 11-27-2024 End: 11-27-2024 Patient encounter procedure 11/27/2024 10:00 AM EDT Office Visit [facility] [address] [place] [phone] Rubens Tim DO [address] [place] [address] [facility] Start: 11-24-2024 End: 11-24-2024 Patient encounter procedure [facility] Adult Endocrinology, A Department of [facility] Start: 11-21-2024 Adult BMI Screening Adult BMI Screening [facility] Start: 11-21-2024 Tobacco Screening Tobacco Screening [facility] Start: 10-06-2024 Influenza vaccination [facility] Start: 09-30-2024 End: 09-30-2024 CBC W Auto Differential panel - Blood COMPLETE BLOOD COUNT AND DIFFERENTIAL Lab Routine Qualitative platelet disorder (HCC) Expected: 09/30/2024 (Approximate), Expires: 09/30/2024 [facility] Work Phone: Comment on above: Expected: 09/30/2024 (Approximate), Expi res: 09/30/2024 Start: 09-30-2024 End: 09-30-2024 Comprehensive metabolic 2000 panel - Serum or Plasma COMPREHENSIVE METABOLIC PANEL Lab Routine Qualitative platelet disorder (HCC) Expected: 09/30/2024 (Approximate), Expires: 09/30/2024 [facility] Comment on above: Expected: 09/30/2024 (Approximate), Expi res: 09/30/2024 Start: 09-29-2024 End: 09-29-2024 Follow-up encounter 09/29/2024 9:45 AM EDT Visit (SP) Office Hematology/Oncology [address] [facility] [place] [address] Fuentes Amaral MD [address] [facility] [place] [address] 1 year follow up Hematology/Oncology Comment on above: 1 year follow up Start: 09-29-2024 End: 09-29-2024 Patient encounter procedure 09/29/2024 9:30 AM EDT Office Visit [facility] [address] [facility] [place] [place] [address] 1 year follow up [facility] Comment on above: 1 year follow up Start: 09-25-2024 End: 09-25-2024 Patient encounter procedure 09/25/2024 3:45 PM EDT [facility] [address] [place] [phone] Cas Dowell MD [address] [place] [address] [facility] Comment on above: Arrived Start: 09-25-2024 End: 09-25-2025 XR Elbow - right 2 Views XR elbow 1 or 2 views right Imaging Routine Right forearm pain Expected: 09/25/2024, Expires: 09/25/2025 [facility] Comment on above: Expected: 09/25/2024, Expires: Start: 09-25-2024 End: 09-25-2025 XR Radius and Ulna - right 2 Views XR forearm 2 views right Imaging Routine Right forearm pain Expected: 09/25/2024, Expires: 09/25/2025 [facility] Comment on above: Expected: 09/25/2024, Expires: Start: 09-25-2024 End: 09-25-2025 XR Wrist - right 2 Views XR wrist 1 or 2 views right Imaging Routine Right wrist pain Expected: 09/25/2024, Expires: 09/25/2025 [facility] Work Phone: Comment on above: Expected: 09/25/2024, Expires: Start: 09-18-2024 End: 09-18-2024 Patient encounter procedure 09/18/2024 12:45 PM EDT Office Visit [address] [address] Nabor Yancey, PROMOTIONS PRODUCER - FOOD EDITOR [address] [place] [address] 3 month follow up; Asthma, KATELIN/Silvia; labs [facility] Part [facility] Comment on above: 3 month follow up; Asthma, KATELIN/Silvia; l abs Start: 09-05-2024 Influenza vaccination Flu vaccine (#1) [facility] Start: 08-30-2024 Screening for malignant neoplasm of breast Mammogram [facility] Start: 08-11-2024 End: 08-11-2025 CBC W Auto Differential panel - Blood CBC and differential Lab Routine Annual physical exam Expected: 08/11/2024 (Approximate), Expires: 08/11/2025 [facility] Comment on above: Expected: 08/11/2024 (Approximate), Expi res: 08/11/2025 Start: 08-11-2024 End: 08-11-2025 Comprehensive metabolic 2000 panel - Serum or Plasma Comprehensive metabolic panel Lab Routine Annual physical exam Expected: 08/11/2024 (Approximate), Expires: 08/11/2025 [facility] Comment on above: Expected: 08/11/2024 (Approximate), Expi res: 08/11/2025 Start: 08-11-2024 End: 08-11-2025 Hemoglobin A1c/Hemoglobin.total in Blood Hemoglobin A1c Lab Routine Annual physical exam Expected: 08/11/2024 (Approximate), Expires: 08/11/2025 [facility] Comment on above: Expected: 08/11/2024 (Approximate), Expi res: 08/11/2025 Start: 08-11-2024 End: 08-11-2025 Lipid 1996 panel - Serum or Plasma Lipid panel Lab Routine Annual physical exam Expected: 08/11/2024 (Approximate), Expires: 08/11/2025 [facility] Comment on above: Expected: 08/11/2024 (Approximate), Expi res: 08/11/2025 Start: 08-11-2024 End: 08-11-2025 Microalbumin/Creatinine panel in random Urine Microalbumin / creatinine, urine ratio Lab Routine Type 2 diabetes mellitus with hyperglycemia, without long-term current use of insulin (HCC) Expected: 08/11/2024 (Approximate), Expires: 08/11/2025 [facility] Work Phone: Comment on above: Expected: 08/11/2024 (Approximate), Expi res: 08/11/2025 Start: 08-11-2024 End: 08-11-2025 Thyrotropin [Units/volume] in Serum or Plasma TSH Lab Routine Annual physical exam Expected: 08/11/2024 (Approximate), Expires: 08/11/2025 [facility] Comment on above: Expected: 08/11/2024 (Approximate), Expi res: 08/11/2025 Start: 08-11-2024 End: 08-11-2025 Thyroxine (T4) free [Mass/volume] in Serum or Plasma T4, free Lab Routine Primary hypothyroidism Expected: 08/11/2024 (Approximate), Expires: 08/11/2025 [facility] Comment on above: Expected: 08/11/2024 (Approximate), Expi res: 08/11/2025 Start: 08-11-2024 End: 08-11-2024 Patient encounter procedure [facility] Comment on above: Arrived Start: 07-08-2024 End: 07-08-2024 Patient encounter procedure [facility] Comment on above: Arrived Start: 07-04-2024 Tobacco Screening Tobacco Screening [facility] Start: 07-01-2024 End: 07-01-2024 [facility] Start: 05-07-2024 Adult BMI Screening Adult BMI Screening [facility] Start: 05-07-2024 Tobacco Screening Tobacco Screening [facility] Start: 04-17-2024 End: 04-17-2024 Patient encounter procedure 04/17/2024 8:30 AM EDT Office Visit [address] [address] David Mai MD [address] [place] [address] 6 mth f/u [facility] Part of [facility] Comment on above: 6 mth f/u Start: 04-12-2024 Urine screening for protein Diabetes: Urine Protein Screening [facility] Start: 02-27-2024 End: 02-27-2024 Patient encounter procedure 02/27/2024 8:15 AM EST Office Visit [facility] [address] [place] [address] Cas Dowell MD [address] [place] [address] [address] [facility] Comment on above: Arrived Start: 02-22-2024 Hemoglobin A1c measurement Diabetes: Hemoglobin A1C [facility] Start: 02-11-2024 End: 02-10-2025 Hemoglobin A1c/Hemoglobin.total in Blood Hemoglobin A1c Lab Routine Type 2 diabetes mellitus with hyperglycemia, without long-term current use of insulin ([facility]) Expected: 02/11/2024 (Approximate), Expires: 02/10/2025 [facility] Work Phone: Comment on above: Expected: 02/11/2024 (Approximate), Expi res: 02/10/2025 Start: 01-14-2024 End: 01-14-2024 Patient encounter procedure 01/14/2024 9:40 AM EST Office Visit [facility] [address] [facility] [address] [place] [phone] Christy Painting MD [address] [facility] [address] [place] [address] [facility] Start: 01-09-2024 End: 01-09-2024 Patient encounter procedure 01/09/2024 8:45 AM EST Office Visit [facility] [address] [place] [address] Cas Dowell MD [address] [place] [address] [facility] Start: 01-05-2024 Adult BMI Screening Adult BMI Screening [facility] Start: 01-05-2024 Depression Screening Depression Screening [facility] Start: 01-05-2024 Tobacco Screening Tobacco Screening [facility] Start: 01-02-2024 End: 01-02-2024 Patient encounter procedure 01/02/2024 10:30 AM EST [facility] [address] [place] [phone] Marni Flowers, PROMOTIONS PRODUCER-FOOD EDITOR [address] [facility] [address] [place] [phone] [facility] Start: 2023 Screening for malignant neoplasm of breast [facility] Start: 12-19-2023 GFR test (Diabetes, CKD 3-4, OR last GFR 15-59) GFR test (Diabetes, CKD 3-4, OR last GFR 15-59) [facility] Start: 12-19-2023 Urine screening for protein Diabetes: Urine Protein Screening [facility] Start: 11-22-2023 End: 11-22-2023 Patient encounter procedure 11/22/2023 8:45 AM EDT Office Visit [facility] [address] [phone] Akila Yao MD [address] [address] [facility] Start: 11-20-2023 End: 11-19-2024 Cortisol free Cortisol, free Lab Routine PCOS (polycystic ovarian syndrome) Hormone disorder Expected: 11/20/2023, Expires: 11/19/2024 [facility] Comment on above: Expected: 11/20/2023, Expires: Start: 11-20-2023 End: 11-19-2024 DHEA DHEA Lab Routine PCOS (polycystic ovarian syndrome) Hormone disorder Expected: 11/20/2023, Expires: 11/19/2024 [facility] Comment on above: Expected: 11/20/2023, Expires: Start: 11-20-2023 End: 11-19-2024 DHEA-sulfate DHEA-sulfate Lab Routine PCOS (polycystic ovarian syndrome) Hormone disorder Expected: 11/20/2023 (Approximate), Expires: 11/19/2024 [facility] Comment on above: Expected: 11/20/2023 (Approximate), Expi [...] procedure 11/19/2023 8:45 AM EDT Office Visit [facility] [address] [phone] Akila Yao MD [address] 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 Expected: 11/07/2023 (Approximate), Expires: 05/07/2024 [facility] Comment on above: Expected: 11/07/2023 (Approximate), Expi res: 05/07/2024 Start: 11-07-2023 End: 11-07-2023 Patient encounter procedure [facility] Comment on above: Allergic reaction, subsequent encounter Start: 10-10-2023 End: 10-10-2023 Patient encounter procedure [facility] Comment on above: Arrived Start: 10-07-2023 COVID-19 Vaccine ( season) COVID-19 Vaccine ( season) [facility] Start: 10-07-2023 Covid-19 Vaccine ( season) Covid-19 Vaccine ( season) [facility] Start: 10-07-2023 Influenza vaccination [facility] Start: 10-03-2023 End: 10-03-2023 CBC W Auto Differential panel - Blood CBC + DIFF Lab Routine 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) Coagulopathy (HCC) Expected: 10/03/2023 (Approximate), Expires: 10/03/2023 [facility] Work Phone: Comment on above: Expected: 10/03/2023 (Approximate), Expi res: 10/03/2023 Start: 10-03-2023 End: 10-03-2023 Comprehensive metabolic 2000 panel - Serum or Plasma COMP METABOLIC PANEL Lab Routine 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) Coagulopathy (HCC) Expected: 10/03/2023 (Approximate), Expires: 10/03/2023 [facility] Work Phone: Comment on above: Expected: 10/03/2023 (Approximate), Expi res: 10/03/2023 Start: 09-26-2023 End: 09-26-2023 Patient encounter procedure 09/26/2023 9:15 AM EDT Office Visit [facility] [address] [place] [address] Cas Dowell MD [address] [place] [address] Arrived [facility] Comment on above: Arrived Start: 09-06-2023 Influenza vaccination Flu vaccine (#1) [facility] Start: 07-10-2023 End: 07-10-2023 Patient encounter procedure 07/10/2023 9:00 AM EDT Office Visit [facility] [address] [place] [address] Jodi Mazariegos, PA [address] [place] [address] [facility] Start: 07-05-2023 End: 07-05-2023 Telemedicine consultation with patient 07/05/2023 3:30 PM EDT Telemedicine [facility] [address] [place] [address] Marni Flowers, PROMOTIONS PRODUCER-FOOD EDITOR [address] [place] [address] [facility] Start: 05-08-2023 End: 05-07-2024 US Thyroid gland Ultrasound thyroid Imaging Routine 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 [address] [place] [address] Akila Yao MD [address] [facility] [address] [place] [address] [facility] Start: 04-09-2023 End: 04-09-2023 Patient encounter procedure 04/09/2023 8:45 AM EST Office Visit [facility] [address] [place] [phone] Cas Dowell MD [address] [place] [address] [facility] Start: 04-03-2023 Hemoglobin A1c measurement Diabetes: Hemoglobin A1C [facility] Start: 01-30-2023 GFR test (Diabetes, CKD 3-4, OR last GFR 15-59) GFR test (Diabetes, CKD 3-4, OR last GFR 15-59) [facility] Start: 01-09-2023 Hemoglobin A1c measurement A1C test (Diabetic or Prediabetic) [facility] Start: 10-17-2022 Adult depression screening assessment DEPRESSION SCREENING [facility] Start: 10-08-2022 Adult depression screening assessment DEPRESSION SCREENING [facility] Start: 10-06-2022 Covid-19 Vaccine ( season) Covid-19 Vaccine ( season) [facility] Start: 10-06-2022 Influenza vaccination [facility] Start: 10-01-2022 End: 04-03-2023 CBC W Auto Differential panel - Blood CBC + DIFF Lab Routine 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) Expected: 10/01/2022 (Approximate), Expires: 04/03/2023 [facility] Work Phone: Comment on above: Expected: 10/01/2022 (Approximate), Expi res: 04/03/2023 Start: 10-01-2022 End: 04-03-2023 Comprehensive metabolic 2000 panel - Serum or Plasma COMP METABOLIC PANEL Lab Routine 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) Expected: 10/01/2022 (Approximate), Expires: 04/03/2023 [facility] Work Phone: Comment on above: Expected: 10/01/2022 (Approximate), Expi res: 04/03/2023 Start: 09-14-2022 Adult depression screening assessment DEPRESSION SCREENING [facility] Start: 07-29-2022 Adult depression screening assessment DEPRESSION SCREENING [facility] Start: 06-29-2022 Adult depression screening assessment DEPRESSION SCREENING [facility] Start: 06-21-2022 End: 06-21-2022 Patient encounter procedure 06/21/2022 Office Visit Pulmonology Armando Balderrama, DO [address] [id number] [facility]RE[facility]UL[facility] Start: 06-20-2022 Adult depression screening assessment DEPRESSION SCREENING [facility] Start: 05-25-2022 Depression Monitoring Depression Monitoring [facility] Start: 05-19-2022 Adult depression screening assessment DEPRESSION SCREENING [facility] Start: 04-16-2022 Creatinine measurement Creatinine monitoring [facility] Start: 04-16-2022 Potassium monitoring Potassium monitoring [facility] Start: 02-27-2022 End: 02-27-2022 Patient encounter procedure 02/27/2022 Office Visit Pulmonology Nabor Yancey, PROMOTIONS PRODUCER - FOOD EDITOR [address] [id number] [facility] OUTRE[facility] of [facility] Start: 02-10-2022 End: 04-12-2022 PLATELET TRANSMISSION ELECTRON MICROSCOPIC STUDY PLATELET TRANSMISSION ELECTRON MICROSCOPIC STUDY Lab Routine 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) Expected: 02/10/2022, Expires: 04/12/2022 [facility] Work Phone: Comment on above: Expected: 02/10/2022, Expires: 3 Start: 02-05-2022 DEPRESSION ASSESSMENT DEPRESSION ASSESSMENT [facility] Start: 2021 End: 2021 Patient encounter procedure 2021 Office Visit Pulmonology Armando Balderrama DO [address] [facility] [address] [place] [address] [facility] Start: 11-16-2021 End: 01-16-2022 Ferritin [Mass/volume] in Serum or Plasma FERRITIN BLD Lab Routine RLS (restless legs syndrome) Expected: 11/16/2021, Expires: 01/16/2022 [facility] Work Phone: Comment on above: Expected: 11/16/2021, Expires: 2 Start: 11-16-2021 End: 01-16-2022 Iron and Iron binding capacity panel - Serum or Plasma IRON + TIBC Lab Routine RLS (restless legs syndrome) Expected: 11/16/2021, Expires: 01/16/2022 [facility] Work Phone: Comment on above: Expected: 11/16/2021, Expires: 2 Start: 11-01-2021 Creatinine measurement Creatinine monitoring [facility] Work Phone: Start: 11-01-2021 Potassium monitoring Potassium monitoring [facility] Work Phone: Start: 10-06-2021 Influenza vaccination [facility] Start: 09-28-2021 Glaucoma screening Diabetic retinal exam [facility] Start: 09-21-2021 End: 11-21-2021 Phosphate [Mass/volume] in Serum or Plasma [facility] Work Phone: Comment on above: Expected: [...] joint, multiple sites Expected: 09/19/2021, Expires: 11/19/2021 [facility] Work Phone: Comment on above: Expected: [...] joint, multiple sites Expected: 09/19/2021, Expires: 11/19/2021 [facility] Work Phone: Comment on above: Expected: 09/19/2021, Expires: 2 Start: 09-19-2021 End: 11-19-2021 CARDIOLIPIN IGM ABS CARDIOLIPIN IGM ABS Lab Routine History of COVID-19 Post-acute sequelae of COVID-19 (PASC) SOB (shortness of breath) Chronic cough Chest discomfort Palpitation CAVANAUGH (dyspnea on exertion) Dizziness Near syncope Night sweats Orthopnea Anxiety Myalgia Pain in joint, multiple sites Expected: 09/19/2021, Expires: 11/19/2021 [facility] Work Phone: Comment on above: Expected: 09/19/2021, Expires: 2 Start: 09-19-2021 End: 11-19-2021 CBC panel - Blood by Automated count CBC Lab Routine History of COVID-19 Post-acute sequelae of COVID-19 (PASC) SOB (shortness of breath) Chronic cough Chest discomfort Palpitation CAVANAUGH (dyspnea on exertion) Dizziness Near syncope Night sweats Orthopnea Anxiety Myalgia Pain in joint, multiple sites Expected: 09/19/2021, Expires: 11/19/2021 [facility] Work Phone: Comment on above: Expected: [...] joint, multiple sites Expected: 09/19/2021, Expires: 11/19/2021 [facility] Work Phone: Comment on above: Expected: [...] joint, multiple sites Expected: 09/19/2021, Expires: 11/19/2021 [facility] Work Phone: Comment on above: Expected: 09/19/2021, Expires: 2 Start: 09-19-2021 End: 11-19-2021 Erythrocyte sedimentation rate SED RATE WESTERGREN Lab Routine History of COVID-19 Post-acute sequelae of COVID-19 (PASC) SOB (shortness of breath) Chronic cough Chest discomfort Palpitation CAVANAUGH (dyspnea on exertion) Dizziness Near syncope Night sweats Orthopnea Anxiety Myalgia Pain in joint, multiple sites Expected: 09/19/2021, Expires: 11/19/2021 [facility] Work Phone: Comment on above: Expected: 09/19/2021, Expires: 2 Start: 09-19-2021 End: 11-19-2021 Fibrin D-dimer FEU [Mass/volume] in Platelet poor plasma D-DIMER Lab Routine History of COVID-19 Post-acute sequelae of COVID-19 (PASC) SOB (shortness of breath) Chronic cough Chest discomfort Palpitation CAVANAUGH (dyspnea on exertion) Dizziness Near syncope Night sweats Orthopnea Anxiety Myalgia Pain in joint, multiple sites Expected: 09/19/2021, Expires: 11/19/2021 [facility] Work Phone: Comment on above: Expected: [...] joint, multiple sites Expected: 09/19/2021, Expires: 11/19/2021 [facility] Work Phone: Comment on above: Expected: 09/19/2021, Expires: 2 Start: 09-19-2021 End: 11-19-2021 OMEGACHECK OMEGACHECK Lab Routine History of COVID-19 Post-acute sequelae of COVID-19 (PASC) SOB (shortness of breath) Chronic cough Chest discomfort Palpitation CAVANAUGH (dyspnea on exertion) Dizziness Near syncope Night sweats Orthopnea Anxiety Myalgia Pain in joint, multiple sites Expected: 09/19/2021, Expires: 11/19/2021 [facility] Work Phone: Comment on above: Expected: 09/19/2021, Expires: 2 Start: 09-19-2021 End: 11-19-2021 TMAO TMAO Lab Routine History of COVID-19 Post-acute sequelae of COVID-19 (PASC) SOB (shortness of breath) Chronic cough Chest discomfort Palpitation CAVANAUGH (dyspnea on exertion) Dizziness Near syncope Night sweats Orthopnea Anxiety Myalgia Pain in joint, multiple sites Expected: 09/19/2021, Expires: 11/19/2021 [facility] Work Phone: Comment on above: Expected: 09/19/2021, Expires: 2 Start: 09-19-2021 End: 11-19-2021 TRACE ELEMENTS/TPN TRACE ELEMENTS/TPN Lab Routine History of COVID-19 Post-acute sequelae of COVID-19 (PASC) SOB (shortness of breath) Chronic cough Chest discomfort Palpitation CAVANAUGH (dyspnea on exertion) Dizziness Near syncope Night sweats Orthopnea Anxiety Myalgia Pain in joint, multiple sites Expected: 09/19/2021, Expires: 11/19/2021 [facility] Work Phone: Comment on above: Expected: 09/19/2021, Expires: 2 Start: 09-05-2021 Influenza vaccination Flu vaccine (#1) [facility] Start: 08-24-2021 End: 08-24-2021 Patient encounter procedure 08/24/2021 Office Visit Pulmonology Armando Balderrama, [address] [place] [address] [facility] Start: 07-25-2021 End: 09-24-2021 Complement C3 [Mass/volume] in Serum or Plasma [facility] Work Phone: Comment on above: Expected: 07/25/2021, Expires: 2 Start: 07-25-2021 End: 09-24-2021 Complement C4 [Mass/volume] in Serum or Plasma [facility] Work Phone: Comment on above: Expected: 07/25/2021, Expires: 2 Start: 07-25-2021 End: 09-24-2021 TRYPTASE BLOOD [facility] Work Phone: Comment on above: Expected: 07/25/2021, Expires: 2 Start: 07-05-2021 End: 09-04-2021 Corticotropin [Mass/volume] in Plasma ACTH BLD Lab Routine Screening for endocrine disorder Expected: 07/05/2021, Expires: 09/04/2021 [facility] Work Phone: Comment on above: Expected: 07/05/2021, Expires: 2 Start: 07-05-2021 End: 09-04-2021 Cortisol [Mass/volume] in Serum or Plasma CORTISOL BLD Lab Routine Screening for endocrine disorder Expected: 07/05/2021, Expires: 09/04/2021 [facility] Work Phone: Comment on above: Expected: 07/05/2021, Expires: 2 Start: 07-01-2021 End: 08-31-2021 CBC W Ordered Manual Differential panel - Blood PATHOLOGIST INTERPRETATION WITH CBC AND DIFF Lab Routine Coagulopathy (HCC) Qualitative platelet disorder (HCC) Expected: 07/01/2021, Expires: 08/31/2021 [facility] Work Phone: Comment on above: Expected: 07/01/2021, Expires: 2 Start: 07-01-2021 End: 08-31-2021 Fibrinogen [Mass/volume] in Platelet poor plasma by Coagulation assay FIBRINOGEN Lab Routine Coagulopathy (HCC) Qualitative platelet disorder (HCC) Expected: 07/01/2021, Expires: 08/31/2021 [facility] Work Phone: Comment on above: Expected: 07/01/2021, Expires: 2 Start: 07-01-2021 End: 08-31-2021 FIBRINOGEN ANTIGEN FIBRINOGEN ANTIGEN Lab Routine Coagulopathy (HCC) Qualitative platelet disorder (HCC) Expected: 07/01/2021, Expires: 08/31/2021 [facility] Work Phone: Comment on above: Expected: 07/01/2021, Expires: 2 Start: 07-01-2021 End: 08-31-2021 PLATELET AGGREGATION PANEL PLATELET AGGREGATION PANEL Lab Routine Coagulopathy (HCC) Qualitative platelet disorder (HCC) Expected: 07/01/2021, Expires: 08/31/2021 [facility] Work Phone: Comment on above: Expected: 07/01/2021, Expires: 2 Start: 07-01-2021 End: 08-31-2021 PLATELET FUNCTION SCREEN PLATELET FUNCTION SCREEN Lab Routine Coagulopathy (HCC) Qualitative platelet disorder (HCC) Expected: 07/01/2021, Expires: 08/31/2021 [facility] Work Phone: Comment on above: Expected: 07/01/2021, Expires: 2 Start: 07-01-2021 End: 08-31-2021 THROMBOGRAPH HEPARINASE PANEL THROMBOGRAPH HEPARINASE PANEL Lab Routine Coagulopathy (HCC) Qualitative platelet disorder (HCC) Expected: 07/01/2021, Expires: 08/31/2021 [facility] Work Phone: Comment on above: Expected: 07/01/2021, Expires: 2 Start: 06-27-2021 End: 08-27-2021 Alpha tocopherol [Mass/volume] in Serum or Plasma VITAMIN E/TOCOPHEROL Lab Routine Muscle spasms of lower extremity, unspecified laterality Akathisia Expected: 06/27/2021, Expires: 08/27/2021 [facility] Work Phone: Comment on above: Expected: 06/27/2021, Expires: 2 Start: 06-27-2021 End: 08-27-2021 Ceruloplasmin [Mass/volume] in Serum or Plasma CERULOPLASMIN BLD Lab Routine Muscle spasms of lower extremity, unspecified laterality Akathisia Expected: 06/27/2021, Expires: 08/27/2021 [facility] Work Phone: Comment on above: Expected: 06/27/2021, Expires: 2 Start: 06-27-2021 End: 08-27-2021 CK CREATINE KINASE CK CREATINE KINASE Lab Routine Muscle spasms of lower extremity, unspecified laterality Akathisia Expected: 06/27/2021, Expires: 08/27/2021 [facility] Work Phone: Comment on above: Expected: 06/27/2021, Expires: 2 Start: 06-27-2021 End: 08-27-2021 COPPER, SERUM/PLASMA FREE COPPER, SERUM/PLASMA FREE Lab Routine Muscle spasms of lower extremity, unspecified laterality Akathisia Expected: 06/27/2021, Expires: 08/27/2021 [facility] Work Phone: Comment on above: Expected: 06/27/2021, Expires: 2 Start: 06-27-2021 End: 08-27-2021 FERRITIN BLD FERRITIN BLD Lab Routine Muscle spasms of lower extremity, unspecified laterality Akathisia Expected: 06/27/2021, Expires: 08/27/2021 [facility] Work Phone: Comment on above: Expected: 06/27/2021, Expires: 2 Start: 06-14-2021 End: 08-14-2021 Corticotropin [Mass/volume] in Plasma ACTH BLD Lab Routine Screening for endocrine disorder Expected: 06/14/2021, Expires: 08/14/2021 [facility] Work Phone: Comment on above: Expected: 06/14/2021, Expires: 2 Start: 06-14-2021 End: 08-14-2021 Cortisol [Mass/volume] in Serum or Plasma [facility] Work Phone: Comment on above: Expected: 06/14/2021, Expires: 2 Start: 06-14-2021 End: 08-14-2021 DHEA-S BLD [facility] Work Phone: Comment on above: Expected: 06/14/2021, Expires: 2 Start: 06-10-2021 End: 08-10-2021 APTT INCUBATED MIXING STUDY APTT INCUBATED MIXING STUDY Lab Routine Coagulopathy (HCC) Expected: 06/10/2021, Expires: 08/10/2021 [facility] Work Phone: Comment on above: Expected: 06/10/2021, Expires: 2 Start: 06-10-2021 End: 08-10-2021 Coagulation factor IX activity actual/normal in Platelet poor plasma by Coagulation assay FACTOR IX:C ASSAY Lab Routine Coagulopathy ([facility]) Expected: 06/10/2021, Expires: 08/10/2021 [facility] Work Phone: Comment on above: Expected: 06/10/2021, Expires: 2 Start: 06-10-2021 End: 08-10-2021 Coagulation factor V activity actual/normal in Platelet poor plasma by Coagulation assay FACTOR V:C ASSAY Lab Routine Coagulopathy ([facility]) Expected: 06/10/2021, Expires: 08/10/2021 [facility] Work Phone: Comment on above: Expected: 06/10/2021, Expires: 2 Start: 06-10-2021 End: 08-10-2021 Coagulation factor VIII activity actual/normal in Platelet poor plasma by Coagulation assay FACTOR VIII:C ASSAY Lab Routine Coagulopathy ([facility]) Expected: 06/10/2021, Expires: 08/10/2021 [facility] Work Phone: Comment on above: Expected: 06/10/2021, Expires: 2 Start: 06-10-2021 End: 08-10-2021 Coagulation factor X activity actual/normal in Platelet poor plasma by Coagulation assay FACTOR X:C ASSAY Lab Routine Coagulopathy ([facility]) Expected: 06/10/2021, Expires: 08/10/2021 [facility] Work Phone: Comment on above: Expected: 06/10/2021, Expires: 2 Start: 06-10-2021 End: 08-10-2021 Coagulation factor XI activity actual/normal in Platelet poor plasma by Coagulation assay FACTOR XI:C ASSAY Lab Routine Coagulopathy ([facility]) Expected: 06/10/2021, Expires: 08/10/2021 [facility] Work Phone: Comment on above: Expected: 06/10/2021, Expires: 2 Start: 06-10-2021 End: 08-10-2021 PLATELET AGGREGATION PANEL PLATELET AGGREGATION PANEL Lab Routine Coagulopathy ([facility]) Expected: 06/10/2021, Expires: 08/10/2021 [facility] Work Phone: Comment on above: Expected: 06/10/2021, Expires: 2 Start: 06-10-2021 End: 08-10-2021 PLATELET FUNCTION SCREEN PLATELET FUNCTION SCREEN Lab Routine Coagulopathy ([facility]) Expected: 06/10/2021, Expires: 08/10/2021 [facility] Work Phone: Comment on above: Expected: 06/10/2021, Expires: 2 Start: 06-10-2021 End: 08-10-2021 Prothrombin activity actual/normal in Platelet poor plasma by Coagulation assay FACTOR II:C ASSAY Lab Routine Coagulopathy ([facility]) Expected: 06/10/2021, Expires: 08/10/2021 [facility] Work Phone: Comment on above: Expected: 06/10/2021, Expires: 2 Start: 06-10-2021 End: 08-10-2021 VON WILLEBRAND DX PANEL VON WILLEBRAND DX PANEL Lab Routine Coagulopathy ([facility]) Expected: 06/10/2021, Expires: 08/10/2021 [facility] Work Phone: Comment on above: Expected: 06/10/2021, Expires: 2 Start: 05-25-2021 End: 05-25-2021 Patient encounter procedure 05/25/2021 Office Visit Pulmonology Armando Balderrama DO [address] [place] [address] [id number] [facility] Start: 02-28-2021 End: 02-28-2021 Patient encounter procedure 02/28/2021 Office Visit Pulmonology Fortunato Dean MD [address] [place], [place] [id number] [facility] Start: 02-05-2021 DEPRESSION ASSESSMENT DEPRESSION ASSESSMENT [facility] Start: 10-06-2020 Influenza vaccination [facility] Start: 06-28-2020 End: 06-28-2020 Patient encounter procedure 06/28/2020 Office Visit Pulmonology Fortunato Dean MD [address] [place] [address] [phone] [facility] Start: 12-20-2018 Diabetes screen Diabetes screen [facility] Start: 03-17-2016 Screening for malignant neoplasm of cervix Cervical cancer screen [facility] Work Phone: Start: 12-20-2013 HPV TESTING HPV TESTING [facility] Start: 12-20-2010 HPV Vaccine (1 - 3-dose SCDM series) HPV Vaccine (1 - 3-dose SCDM series) [facility] Start: 12-20-2004 PAP TESTING PAP TESTING [facility] Start: 12-20-2004 Screening for malignant neoplasm of cervix Cervical Cancer Screening [facility] Start: 12-20-2002 DTaP,Tdap and Td Vaccines (1 - Tdap) DTaP,Tdap and Td Vaccines (1 - Tdap) [facility] Start: 12-20-2002 DTaP/Tdap/Td vaccine (1 - Tdap) DTaP/Tdap/Td vaccine (1 - Tdap) [facility] Start: 12-20-2002 Hepatitis B Vaccine (1 of 3 - 19+ 3-dose series) Hepatitis B Vaccine (1 of 3 - 19+ 3-dose series) [facility] Start: 12-20-2002 Hepatitis B vaccine (1 of 3 - Risk 3-dose series) Hepatitis B vaccine (1 of 3 - Risk 3-dose series) [facility] Start: 12-20-2002 Pneumococcal 0-49 years Vaccine (1 of 2 - PCV) Pneumococcal 0-49 years Vaccine (1 of 2 - PCV) [facility] Start: 12-20-2002 Pneumococcal vaccination Pneumococcal Vaccine (1 of 2 - PCV) [facility] Start: 12-20-2002 Urine microalbumin profile [facility] Start: 12-20-2002 Urine screening for protein Diabetes: Urine Protein Screening [facility] Start: 12-20-2001 Adult BMI Follow Up Plan Adult BMI Follow Up Plan [facility] Start: 12-20-2001 ANNUAL PCP TEAM CHRONIC DISEASE VISIT ANNUAL PCP TEAM CHRONIC DISEASE VISIT [facility] Start: 12-20-2001 Anxiety Screening Anxiety Screening [facility] Start: 12-20-2001 Depression Screening Depression Screening [facility] Start: 12-20-2001 Glaucoma screening [facility] Start: 12-20-2001 HEPATITIS C SCREENING HEPATITIS C SCREENING [facility] Start: 12-20-2001 Hepatitis C screening [facility] Start: 12-20-2001 HIV SCREENING HIV SCREENING [facility] Start: 12-20-2001 HIV screening HIV Screening [facility] Start: 12-20-2001 Urine screening for protein Diabetic Alb to Cr ratio (uACR) test [facility] Start: 1999 COVID-19 Vaccine (1) COVID-19 Vaccine (1) [facility] Phone: Start: 12-20-1998 HIV screening HIV screen [facility] Start: 12-20-1996 Varicella vaccine (1 of 2 - 13+ 2-dose series) Varicella vaccine (1 of 2 - 13+ 2-dose series) [facility] Start: 1995 COVID-19 Vaccine (1) COVID-19 Vaccine (1) [facility] Phone: Start: 1995 Depression Screen Depression Screen [facility] Start: 12-20-1993 Diabetic foot examination Diabetic foot exam [facility] Start: 12-20-1993 Glaucoma screening Diabetes: Retinopathy Screening [facility] Start: 12-20-1993 Lipid panel [facility]ids [facility] Start: 12-20-1989 PNEUMOCOCCAL (1 - PCV) PNEUMOCOCCAL (1 - PCV) [facility] Start: 12-20-1989 Pneumococcal 0-64 years Vaccine (1 - PCV) Pneumococcal 0-64 years Vaccine (1 - PCV) [facility] Start: 12-20-1989 Pneumococcal 0-64 years Vaccine (1 of 2 - PCV) Pneumococcal 0-64 years Vaccine (1 of 2 - PCV) [facility] Start: 12-20-1989 Pneumococcal 0-64 years Vaccine (1 of 2 - PPSV23) Pneumococcal 0-64 years Vaccine (1 of 2 - PPSV23) [facility] Start: 12-20-1989 Pneumococcal vaccination Pneumococcal Vaccine (1 of 2 - PCV) [facility] Start: 12-20-1988 COVID-19 VACCINE (#1) COVID-19 VACCINE (#1) [facility] Start: 12-20-1988 COVID-19 Vaccine (1) COVID-19 Vaccine (1) [facility] Start: 12-20-1984 Varicella vaccine (1 of 2 - 2-dose childhood series) Varicella vaccine (1 of 2 - 2-dose childhood series) [facility] Start: 06-19-1984 COVID-19 VACCINE (#1) COVID-19 VACCINE (#1) [facility] Start: 1983 HEPATITIS B (1 of 3 - 3-dose series) HEPATITIS B (1 of 3 - 3-dose series) [facility] Start: 1983 Hepatitis C screening Hepatitis C screen [facility] ACTIGRAPHY TESTING ACTIGRAPHY TE STING Procedures Routine Shift work sleep disorder Poor sleep pattern 1 Occurrences starting 11/16/2021 [facility] Work Phone: Comment on above: 1 Occurrences starting 11/16/2021 Ambulatory bp mntr w /sw 24 hr+ rec scan ewa i&r AMBULATORY BP MONITORING Cardiology Routine Blood pressure instability Ordered: 07/21/2021 [facility] Work Phone: Comment on above: Ordered: 07/21/2021 BLOOD CULTURE 1 BLOOD CULTURE 1 Lab Routine 02/20/2024 2:16 PM EST [facility] BLOOD CULTURE 2 BLOOD CULTURE 2 Lab Routine 02/20/2024 2:17 PM EST [facility] Cardiovascular funct ion eval w/tilt table w/mntr TILT TABLE EVALUATION Cardiology Routine Palpitations Symptomatic bradycardia Orthostatic intolerance Ordered: 10/20/2021 [facility] Work Phone: Comment on above: Ordered: 10/20/2021 Cytology Cervical or vaginal smear or scraping study Pap Smear Pathology and Cytology Routine Well woman exam with routine gynecological exam Ordered: 11/20/2023 [facility] [employer] Work Phone: Comment on above: Ordered: 11/20/2023 End: 07-21-2022 Echocardiography ECHO Cardiology Routine Symptomatic bradycardia Blood pressure instability History of COVID-19 1 Occurrences starting 07/21/2021 until 07/21/2022 [facility] Work Phone: Comment on above: 1 Occurrences starting 07/21/2021 until 07/21/2022 EKG 12 Lead EKG 12 Lead ECG STAT 11/01/2020 4:26 PM EDT [employer] Work Phone: EKG 12 Lead EKG 12 Lead ECG STAT 04/16/2021 8:11 PM EST [employer] Work Phone: EKG 12 Lead EKG 12 Lead ECG STAT 06/21/2021 12:06 AM EDT [employer] Work Phone: Human papilloma viru s DNA [Presence] in Unspecified specimen by Probe with amplification HPV DNA probe, amplified Microbiology Routine Well woman exam with routine gynecological exam Ordered: 11/20/2023 [facility] Comment on above: Ordered: 11/20/2023 End: 10-19-2022 LUNG DIFFUSION CAPACITY (DLCO) LUNG DIFFUSION CAPACITY (DLCO) PFT Routine History of COVID-19 Post-acute sequelae of COVID-19 (PASC) SOB (shortness of breath) Chronic cough Chest discomfort Palpitation CAVANAUGH (dyspnea on exertion) Dizziness Near syncope Night sweats Orthopnea Anxiety Myalgia Pain in joint, multiple sites 1 Occurrences starting 09/19/2021 until 10/19/2022 [facility] Work Phone: Comment on above: 1 Occurrences starting 09/19/2021 until 10/19/2022 End: 10-19-2022 LUNG VOLUMES LUNG VOLUMES PFT Routine History of COVID-19 Post-acute sequelae of COVID-19 (PASC) SOB (shortness of breath) Chronic cough Chest discomfort Palpitation CAVANAUGH (dyspnea on exertion) Dizziness Near syncope Night sweats Orthopnea Anxiety Myalgia Pain in joint, multiple sites 1 Occurrences starting 09/19/2021 until 10/19/2022 [facility] Work Phone: Comment on above: 1 Occurrences starting 09/19/2021 until 10/19/2022 End: 12-27-2023 Mumps Antibody, IgG [facility] Comment on above: Once for 1 Occurrences starting 12/27/19 24 until 12/27/2023 End: 01-05-2023 NITRIC OXIDE, EXHALED NITRIC OXIDE, EXHALED PFT Routine Moderate persistent asthma without complication SOB (shortness of breath) Post-acute sequelae of COVID-19 (PASC) 1 Occurrences starting 12/06/2021 until 01/05/2023 [facility] Work Phone: Comment on above: 1 Occurrences starting 12/06/2021 until 01/05/2023 OUTSIDE VENDOR CARDI AC OUTPATIENT EXTENDED RHYTHM RECORDING (WITHOUT TELEMETRY) OUTSIDE VENDOR CARDIAC OUTPATIENT EXTENDED RHYTHM RECORDING (WITHOUT TELEMETRY) Holter Routine Palpitations Symptomatic bradycardia Orthostatic lightheadedness Diffuse pain Blood pressure instability Decreased activity tolerance Orthostatic intolerance Moderate persistent asthma without complication Physical deconditioning Ordered: 10/20/2021 [facility] Work Phone: Comment on above: Ordered: 10/20/2021 End: 12-16-2022 PAP NAP PSG (CPAP, BILEVEL, ASV) PAP NAP PSG (CPAP, BILEVEL, ASV) Procedures Routine KATELIN on CPAP Poor compliance with CPAP treatment 1 Occurrences starting 11/16/2021 until 12/16/2022 [facility] Work Phone: Comment on above: 1 Occurrences starting 11/16/2021 until 12/16/2022 End: 12-16-2022 PAP TITRATION PSG (CPAP, BIPAP, ASV) PAP TITRATION PSG (CPAP, BIPAP, ASV) Procedures Routine KATELIN on CPAP 1 Occurrences starting 11/16/2021 until 12/16/2022 [facility] Work Phone: Comment on above: 1 Occurrences starting 11/16/2021 until 12/16/2022 End: 02-17-2022 PLATELET ELECT.MICRO [facility] Work Phone: Comment on above: Once for [...] sites 1 Occurrences starting 09/19/2021 until 10/19/2022 [facility] Work Phone: Comment on above: 1 Occurrences starting 09/19/2021 until 10/19/2022 End: 12-27-2023 Rubeola Antibody, IgG [facility] Work Phone: Comment on above: Once for 1 Occurrences starting 12/27/19 until 12/27/2023 End: 10-19-2022 SIX MINUTE WALK SIX MINUTE WALK PFT Routine History of COVID-19 Post-acute sequelae of COVID-19 (PASC) SOB (shortness of breath) Chronic cough Chest discomfort Palpitation CAVANAUGH (dyspnea on exertion) Dizziness Near syncope Night sweats Orthopnea Anxiety Myalgia Pain in joint, multiple sites 1 Occurrences starting 09/19/2021 until 10/19/2022 [facility] Work Phone: Comment on above: 1 Occurrences starting 09/19/2021 until 10/19/2022 SIX MINUTE WALK SIX MINUTE WALK PFT Routine History of COVID-19 Post-acute sequelae of COVID-19 (PASC) SOB (shortness of breath) Chronic cough Chest discomfort Palpitation CAVANAUGH (dyspnea on exertion) Dizziness Near syncope Night sweats Orthopnea Anxiety Myalgia Pain in joint, multiple sites 09/27/2021 8:23 AM EDT [facility] Work Phone: End: 10-19-2022 SPIROMETRY - BASELINE AND POST DILATOR SPIROMETRY - BASELINE AND POST DILATOR PFT Routine History of COVID-19 Post-acute sequelae of COVID-19 (PASC) SOB (shortness of breath) Chronic cough Chest discomfort Palpitation CAVANAUGH (dyspnea on exertion) Dizziness Near syncope Night sweats Orthopnea Anxiety Myalgia Pain in joint, multiple sites 1 Occurrences starting 09/19/2021 until 10/19/2022 [facility] Work Phone: Comment on above: 1 Occurrences starting 09/19/2021 until 10/19/2022 End: 01-05-2023 SPIROMETRY - BASELINE AND POST DILATOR SPIROMETRY - BASELINE AND POST DILATOR PFT Routine Moderate persistent asthma without complication SOB (shortness of breath) Post-acute sequelae of COVID-19 (PASC) 1 Occurrences starting 12/06/2021 until 01/05/2023 [facility] Work Phone: Comment on above: 1 Occurrences starting 12/06/2021 until 01/05/2023 End: 05-07-2024 Thyroid profile includes TSH FT4 Thyroid profile includes TSH FT4 Lab Routine 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 1 Occurrences starting 05/08/2023 until 05/07/2024 [employer] Work Phone: Comment on above: 1 Occurrences starting 05/08/2023 until 05/07/2024 End: 11-21-2024 Thyrotropin [Units/volume] in Serum or Plasma TSH Lab Routine 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 1 Occurrences starting 11/22/2023 until 11/21/2024 [employer] Work Phone: Comment on above: 1 Occurrences starting 11/22/2023 until 11/21/2024 End: 11-21-2024 Thyroxine (T4) free [Mass/volume] in Serum or Plasma T4, free Lab Routine 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 1 Occurrences starting 11/22/2023 until 11/21/2024 [employer] Comment on above: 1 Occurrences starting 11/22/2023 until 11/21/2024 End: 10-19-2022 Us chest real time w/image documentation US CHEST WALL/SOFT TISSUE Radiology Routine Post-acute sequelae of COVID-19 (PASC) Mass of left axilla 1 Occurrences starting 09/19/2021 until 10/19/2022 [facility] Work Phone: Comment on above: 1 Occurrences starting 09/19/2021 until 10/19/2022 End: 09-15-2022 Us pelvic nonobstetric image dcmtn limited/f/u US PELVIS LTD Radiology Routine Chronic RLQ pain 1 Occurrences starting 08/16/2021 until 09/15/2022 [facility] Work Phone: Comment on above: 1 Occurrences starting 08/16/2021 until 09/15/2022 End: 09-14-2022 US SOFT TISSUE ABDOMEN US SOFT TISSUE ABDOMEN Radiology Routine Chronic RLQ pain 1 Occurrences starting 08/15/2021 until 09/14/2022 [facility] Work Phone: Comment on above: 1 Occurrences starting 08/15/2021 until 09/14/2022 End: 12-27-2023 Varicella Zoster Antibody, IgG [facility] Comment on above: Once for 1 Occurrences starting 12/27/19 24 until 12/27/2023 [facility] [facility] Immunizations Immunization Date Immunization Notes Care Provider [facility] 11-20-2019 influenza virus vaccine, H5N1, A/[place] (national stockpile) Cas Dowell MD Work Phone: [facility] 11-20-2019 influenza virus vaccine, unspecified formulation Araseli Barrett MD Work Phone: [facility] Work Phone: 11-20-2019 influenza, unspecified formulation LORAINE BURNHAM [facility] 11-06-2019 influenza virus vaccine, unspecified formulation LORAINE BURNHAM [facility] 11-06-2019 influenza, high dose seasonal, preservative-free Yan Bass MD Work Phone: [facility] 10-27-2019 influenza virus vaccine, unspecified formulation LORAINE BURNHAM [facility] 10-27-2019 influenza, injectable, quadrivalent, preservative free Yan Bass MD Work Phone: [facility] NEGATED: Highlighted row has not occurred!01-04-2023 influenza virus vaccine, unspecified formulation Selma Choe [facility] [place] Payers Date Payer Category Payer Unknown [id number] 2022 Blue Cross Blue Shield 1.2.8 [id number] 2022 Blue Cross [employer] Managed Care - PPO [id number] 2022 Unknown [id number] .[id number] 2022 Unknown [id number] 2022 Unknown [id number] 2022 Unknown [id number] 2014 Unknown MMO MMO [employer] [id number] 2014-Present [phone] [address] [place] [address] PPO [id number] .[id number] 2014 Unknown [id number]. 1.13.159.2.7 .3.319371.315 1983 Unknown [id number] 2.16.840.1.460554.3.579.2.1 74 1983 Unknown [id number] 2.16.840.1.647238.3.579.2.1 74 1983 Unknown [id number] 2.16.840.1.609906.3.579.2.1 75 1983 Unknown [id number] 2.16.840.1.108668.3.579.2.5 93 1983 Unknown [id number] 2.16.840.1.830159.3.579.2.5 93 1983 Unknown [id number] 2.16.840.1.206725.3.579.2.5 93 1983 Unknown [id number] 2.16.840.1.261939.3.579.2.5 93 1983 Unknown [id number] 2.16.840.1.463985.3.579.2.5 93 1983 Unknown [id number] 2.16.840.1.326260.3.579.2.5 93 1983 Unknown [id number] 2.16.840.1.532202.3.579.2.5 93 1983 Unknown [id number] 2.16.840.1.607582.3.579.2.5 93 1983 Unknown [id number] 2.16.840.1.233589.3.579.2.5 93 1983 Unknown [id number] 2.16.840.1.723212.3.579.2.5 93 1983 Unknown [id number] 2.16.840.1.316626.3.579.2.5 93 1983 Unknown [id number] 2.16.840.1.988051.3.579.2.5 93 1983 Unknown [id number] 2.16.840.1.238639.3.579.2.1 286 1983 Unknown [id number] 2.16.840.1.708459.3.579.2.1 286 1983 Unknown [id number] 2.16.840.1.391598.3.579.2.1 286 1983 Unknown [id number] 2.16.840.1.082482.3.579.2.1 286 1983 Unknown [id number] 2.16.840.1.635303.3.579.2.1 286 1983 Unknown [id number] 2.16.840.1.545533.3.579.2.1 96 1983 Unknown [id number] 2.16.840.1.524299.3.579.2.1 96 1983 Unknown [id number] 2.16.840.1.612288.3.579.2.1 96 1983 Unknown [id number] 2.16.840.1.789057.3.579.2.1 286 1983 Unknown [id number] 2.16.840.1.617070.3.579.2.1 73 1983 Unknown [id number] 2.16.840.1.351917.3.579.2.1 73 1983 Unknown [id number] 2.16.840.1.254620.3.579.2.1 73 1983 Unknown [id number] 2.16.840.1.491618.3.579.2.1 259 1983 Unknown [id number] 2.16.840.1.738696.3.579.2.1 259 1983 Unknown [id number] 2.16.840.1.927993.3.579.2.1 259 1983 Unknown [id number] 2.16.840.1.032872.3.579.2.1 259 1983 Unknown [id number] 2.16.840.1.468069.3.579.2.1 259 1983 Unknown [id number] 2.16.840.1.036811.3.579.2.1 259 1983 Unknown [id number] 2.16.840.1.686372.3.579.2.1 259 1983 Unknown [id number] 2.16.840.1.361103.3.579.2.1 259 1983 Unknown [id number] 2.16.840.1.264276.3.579.2.7 27 1959 Unknown [id number] 1.2.840.527025.1.13.239.2.7 .3.591144.315 1959 Unknown [id number] 1.2.840.068424.1.13.239.2.7 .3.735952.315 Unknown [facility] [id number] Social History Date Type Detail Facility Start: 06-13-2020 End: 07-07-2022 Tobacco smoking status [facility] Never smoker [facility]: Start: 06-13-2020 End: 04-17-2024 Alcohol intake Current non-drinker of alcohol (finding) [facility]: Start: 1985 Sex Assigned At Not on file [facility]: Start: 05-10-2021 End: 01-30-2022 Exposure to SARS-CoV-2 (event) Not sure [facility] Start: 08-30-2020 End: 07-07-2022 Tobacco use and exposure Never used [facility] Start: 05-24-2021 End: 07-01-2021 Alcohol intake Current drinker of alcohol (finding) [facility] Start: 02-23-2014 History SDOH Alcohol Comment rarely uses alcohol [facility] Start: 1985 Sex Assigned At Female [facility] Start: 07-22-2021 End: 09-30-2024 Alcohol intake Ex-drinker (finding) [facility] Start: 09-17-2021 End: 09-27-2021 Exposure to SARS-CoV-2 (event) Unable to assess [facility] History of tobacco use Passive smoker [facility] Start: 02-20-2014 Tobacco smoking status Never [facility] Start: 10-02-2022 End: 08-08-2024 Sex Assigned At Female [facility] Start: 10-02-2022 End: 08-08-2024 History of Social function [facility] Start: 09-26-2020 Gender identity Identifies as female gender (finding) [facility] Start: 09-26-2020 Sexual orientation Heterosexual (finding) [facility] Start: 01-16-2023 End: 02-27-2024 Alcohol intake Lifetime [...] [OSQ] Only a little [facility] Start: 03-17-2012 End: 09-10-2014 Sex Female (finding) [facility] Within the last year , have you been afraid of your partner or ex-partner? No [facility] Do you feel stress - tense, restless, nervous, or anxious, or unable to sleep at night because your mind is troubled all the time - these days [OSQ] Very much [facility] (I/We) worried wheeduard er (my/our) food would run out before (I/we) got money to buy more. Sometimes true [facility] The food that (I/we) bought just didn't last, and (I/we) didn't have money to get more. Never true [facility] Functional Status Date Assessment Result Facility 08-08-2024 Total score [AUDIT-C] 0 08/09/19 11:04 AM EDT Florentin, Generic [facility] 08-08-2024 How often to you hav e a drink containing alcohol? Never 08/08/2024 11:04 AM EDT Irishhart, Generic Never [facility] 08-08-2024 Functional status Patient does n ot drink 08/08/2024 11:04 AM EDT Mychart, Generic Patient does not drink [facility] 08-08-2024 How often do you hav e 6 or more drinks on 1 occasion? Never 08/08/2024 11:04 AM EDT Bibianat, Generic Never [facility] 10-02-2023 Functional Status N/A [facility] 09-05-2022 Functional Status N/A [facility] 02-28-2022 Functional Status N/A [facility] 01-20-2022 Functional Status N/A [facility] 2021 Functional Status N/A [facility] 02-23-2014 Are you deaf, or do you have serious difficulty hearing No 02/23/2014 2:04 PM Keke Page MA [facility] 02-23-2014 Are you blind, or do you have serious difficulty seeing, even when wearing glasses No 02/23/2014 2:04 PM INES Thompson KekeALIZE No [facility] 02-23-2014 Do you have serious difficulty walking or climbing stairs No 02/23/2014 2:04 PM Keke Page MA No [facility] 02-23-2014 Do you have difficul ty dressing or bathing No 02/23/2014 2:04 PM Keke Page MA No [facility] 02-23-2014 Because of a physica l, mental, or emotional condition, do you have difficulty doing errands alone such as visiting a physician's office or shopping No 02/23/2014 2:04 PM Keke Page MA No [facility] Mental Status Date Assessment Result Facility 02-23-2014 Because of a physica l, mental, or emotional condition, do you have serious difficulty concentrating, remembering, or making decisions No 02/23/2014 2:04 PM INES Thompson, ALIZE Davies No [facility] Clinical Notes 09-06-2020 to 09-30-2024 Margot Limon APRN.FOOD EDITOR - 09/30/2024 9:01 AM Zurdo Dowell MD - 09/25/2024 4:41 PM Zurdo Dowell MD - 09/25/2024 4:41 PM Zurdo Dowell MD - 09/25/2024 4:40 PM EDT Note Date & Type Note Facility 09-30-2024 Note HNO ID: [id number] Author: MARGOT LIMON APRN.FOOD EDITOR Service: ? Author Type: Nurse Practitioner Type: Progress Notes Filed: 09/30/2024 10:24 Note Text: NAME: Leana Tran [facility] NO.: [id number] DATE OF SERVICE: September 30, 2024 (Sonam) Some elements in this clinic note that are critical to medical decision making have been carefully reviewed and included from a prior clinic note dated: October 01, 2023 (Munir) Additional Clinicians involved in Leana Tran's [...] gum bleeding on a daily basis with min (more content not included)... [facility] 09-30-2024 History of Present illness Narrative Images from the original note were not included. NAME: Leana Tran [facility] NO.: [id number] DATE OF SERVICE: September 30, 2024 (Sonam) Some elements in this clinic note that are critical to medical decision making have been carefully reviewed and included from a prior clinic note dated: October 01, 2023 (Munir) Additional Clinicians involved in Leana Tran's [...] and hysterectomy in 2019 presents for follow-up. She reports recurrent flu-like symptoms every 2 weeks, lasting [...] daily. Recent labs show a potassium level of 3.6 mmol/L. She has not been taking potassium supplements. Genetic testing was inconclusive due to financial constraints. She denies any other bleeding and reports no changes since her last visit with Dr. Jimenez last year. Dental work was completed recently. 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 REMOVAL GALLBLADDER TUBAL LIGATION HX Social History Tobacco Use Smoking status: Never Passive exposure: Past Smokeless tobacco: Never Vaping Use Vaping status: Never Used Substance Use Topics Alcohol use: Not Currently Drug use: Not Currently FAMILY HISTORY Problem Relation Age of Onset Diabetes Mother uncontrolled Hypertension Mother Heart Attack Mother First [place] at age 51 Cardiomyopathy Mother at age [...] which included preparing to see the patient, [id number] patient care, completing clinical documentation, obtaining and/or reviewing separately obtained history, performing a medically appropriate examination, counseling and educating the patient/family/caregiver, communicating with other HCPs (not separately reported), independently interpreting results (not separately reported), and communicating results to the patient/family/caregiver. Margot Limon APRN, MODEL SET ARTIST-C, OCN H[facility]ology [facility] Oncology Services Provided at: [place], [place] CC: Cas Cronin documented in this encounter [facility] 09-25-2024 History of Present illness Narrative Associated Problem(s): Right wrist pain Pain after fall and not improving. Repeat x-ray and start PT. Treat with prednisone. If no improvement may need MRI and or ortho. Associated Problem(s): Right forearm pain Pain after fall and not improving. Repeat x-ray and start PT. Treat with prednisone. If no improvement may need MRI and or ortho. Associated Problem(s): Chronic rhinosinusitis Continued symptoms and feels like right nasal cavity plugged. Treat with antibiotics and steroids. Continue medication. Refer to ENT. Images from the original note were not [...] right side of nose plugged. Pressure and pain in ears. Taking xyzal and using saline sinus rinse. Reports pulmonology referred to ENT but not scheduled. C/o right arm pain for several week. Fell in end of August when going out to get mail and had syncope related to POTS. Fell and thinks tried to catch self with right arm. Pain in right wrist and forearm. Seen at urgent care 09/08 and x-ray [...] 2 views right documented in this encounter [facility] 09-08-2024 Evaluation note Diagnosis Onset Date Resolution Right forearm injury acute Augu st 2024 11:37am [facility] Work Phone: [phone]) 587-754807-18-2025 History of Present illness Narrative* Abimbola Saucedo - 08/22/2024 10:30 AM EDT Explained policies and procedures of an echocardiogram/doppler study. 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 Hx Cesar autoimmune thyroid disease, celiac disease. She underwent an implantable loop recorder for penitentiary cardiac rhythm monitoring due to syncope in June 2022. I saw Leana in follow up 2023. Chief Complaint: Orthostatic intolerance. 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 Days. Orthostatic intolerance continues intermittent. Heart fluttering, vibrates. Artifact on monitor . Leg swelling/ ankles. No hypertension,. Weight gain 220-230lbs. No CP. Pinching. Then fluttering. Pyridostigmine helps orthostatic intolerance and palpitations . Review of Systems Cardiovascular: Positive for leg swelling, near-syncope and palpitations. Negative for syncope. Retaining fluids. On lasix-- not started Objective Constitutional: Appearance: Healthy appearance. Not in distress. Neurological: Mental Status: Alert and oriented to person, place and time. ILR: Evoke: ARRHYTHMIAS 0 AF 0 SYMPTOM 0 PAUSE 69 LENIN-- appears to be nocturnal bradycardia AF BURDEN 0% Assessment/Plan The primary encounter diagnosis was Edema, unspecified type. Diagnoses of Orthostatic intolerance, Syncope and collapse, Implantable loop recorder present, and Palpitations with regular cardiac rhythm were also pertinent to this visit. Problem List Items Addressed This Visit Orthostatic intolerance Syncope and collapse Implantable loop recorder present Other Visit Diagnoses Edema, unspecified type - Primary Relevant Orders Transthoracic echo (TTE) complete Palpitations with regular cardiac rhythm Relevant Orders Transthoracic echo (TTE) complete OI. Continue pyridostigmine present dose No elodia syncope. Over one year. ILR: no arrhythmia Edema: echo. Lasix prn. Compression. Yearly fu. Date of Telehealth Visit: 08/12/2024 Chief Complaint Patient presents with Telehealth Audio/video Visit The visit was conducted [id number] with the use of audio and video technology using HIPAA approved [employer]! Web[employer] between patient and the provider for a virtual visit. Verbal consent to provide and bill this service was obtained on: 08/12/24 Patient Location: Patient Home I spent 15 [...] this note for specific details. 1. Orthostatic intolerance Exacerbation due to heat likely. Take seated and stand BP and HR. Sit 3-5 minutes. Stand 3-5 minutes. Record 2. Syncope and collapse No syncoope 3. Implantable loop recorder present No arrhythmia 4. Edema, unspecified type (Primary) - Transthoracic echo (TTE) complete; Future 5. Palpitations with regular cardiac rhythm - Transthoracic echo (TTE) complete; Future Macrina Wadsworth APRN PhD [facility] Nurse Practitioner Division of Cardiovascular Medicine [facility] 08-11-2024 Miscellaneous Notes* Telephone Encounter - Alina Garcia CMA - 08/11/2024 11:33 AM EDT LAST OV 07/01/2024 NEXT OV 12/26/2024 [facility] Telephone encounter Note* Telephone Encounter - Alina Garcia CMA - 08/11/2024 11:33 AM EDT LAST OV 07/01/2024 NEXT OV 12/26/2024 [facility]07-07-2025 History of Present illness Narrative* Cas Dowell MD - 08/11/2024 10:05 AM EDTAssociated Problem(s): Type 2 diabetes mellitus with hyperglycemia, without long-term current use of insulin (HCC) Not checking BS and due for A1C. Stick to ADA diet and limit carbs. * Cas Dowell MD - 08/11/2024 10:04 AM EDTAssociated Problem(s): Edema of both legs Worsening edema and add lasix PRN. Elevate legs PRN. Warned of worsening autonomic symptoms with diuretic and monitor. * Cas Dowell MD - 08/11/2024 10:03 AM EDTAssociated Problem(s): Annual physical exam Due for labs. Discussed proper diet and regular aerobic exercise. Need aerobic exercise 5-6 days a week for 30 minutes at a time. Smaller portions and limit total calories. Colonoscopy after age 45. Tetanus every 10 years. Advised not to smoke. * Cas Dowell MD - 08/11/2024 9:00 AM EDT Images from the original note were not included. Subjective Patient ID: Leana Tran is a 38 y.o. female who presents for Follow-up (6m). Presents for annual PE. Weight fluctuates but hard to lose weight. Not active and no exercise. Tries to watch diet and eat healthy. Increased fruits and vegetables. Smaller portions and limits snacking. Tries to limit total daily calories. Due for labs. Not checking BS away from office and needs new meter. Tries to eat well and stick to [...] with exertion. No chest tightness or pressure. Seen by pulmonology and changed inhalers. Using albuterol PRN which helps. Edema recently worse. Increased swelling at end of day and if on feet a lot. Edema improved in am and with elevation. Using compression but not helping. Depression stable and following with psychiatry. Review [...] Assessment/Plan Problem List Items Addressed This Visit Type 2 diabetes mellitus with hyperglycemia, without long-term current use of insulin (HCC) Not checking BS and due for A1C. Stick to ADA diet and limit carbs. Relevant Orders Microalbumin / creatinine, urine ratio Primary hypothyroidism Relevant Orders T4, free Edema of both legs Worsening edema and add lasix PRN. Elevate legs PRN. Warned of worsening autonomic symptoms with diuretic and monitor. Relevant Medications furosemide (Lasix) 20 MG tablet Annual physical exam - Primary Due for labs. Discussed proper diet and regular aerobic exercise. Need aerobic exercise 5-6 days a week for 30 minutes at a time. Smaller portions and limit total calories. Colonoscopy after age 45. Tetanus every 10 years. Advised not to smoke. Relevant Orders Hemoglobin A1c CBC and differential Lipid panel TSH Comprehensive metabolic panel documented in [id number] History of Present illness Narrative* PONCE Gerardo - 07/08/2024 8:30 AM EDT Skin Check Location: Patient requests a full body skin examination Dermatologic history: no history of skin cancer, no history of atypical moles Last visit: 1 year ago Established patient Follow up Diagnosis: Atopic Dermatitis Location: Abdomen, breasts, left anterior ankle and posterior scalp Last visit: 1 year ago Symptoms: mildly itchy when flared Status: stable with treatment Treatments tried and failed: diflucan (made it worse), ketoconazole cream (did not work) Current treatment: TAC 0.1% cream All pertinent medical history, medications, and allergies were reviewed. General Exam: alert, oriented to person, place, and time, normal affect, well appearing Unaccompanied Scalp, Examined Right leg Examined Head, Face Examined Left leg Examined Neck Examined Right foot Examined Chest Examined Left foot Examined Back Examined Buttocks Examined Patient kept underwear on Abdomen Examined Digits,nails: Examined Right arm Examined Patient wearing nail luxembourgish, Denies dark streaks under finger nails, Denies darkstreaks on toenails Left arm Examined Lymphatics: Not examined Hands Examined Skin Exam 1. MELANOCYTIC NEVUS OF TRUNK Generalized Scattered benign appearing, regular brown to light brown melanocytic papules and macules with similar morphology Counseled regarding these benign growths. Rarely, a nevus can develop into malignant melanoma, so any changing nevi should be promptly re-evaluated. 2. OTHER SPECIFIED DERMATITIS Abdomen (Lower Torso, Anterior), Chest (Upper Torso, Anterior), Left Ankle - Anterior, Scalp Mildly erythematous patches, well controlled today Start Hydrocortisone 2.5 % cream up to twice daily on the face PRN for flare, counseled patient on proper use of prescribed medication that atopic dermatitis is a chronic condition that can be controlled but not cured. Continue TAC 0.1% bid prn when flared, hold if smooth/asymptomatic. Encouraged daily moisturizing and gentle cleansers to prevent flares. Notify the office for significant flare orif not controlled with prescribed treatment. Related Medications hydrocortisone 2.5 % cream Apply topically 2 (two) times a day as needed (Rash) Apply thin layer to affected areas bid prn forflares triamcinolone (Kenalog) 0.1 % cream Apply to affected areas, up to twice a day when flared, do not use one the face, groin, or underarms, 30 day supply 3. DERMATOFIBROMA OF RIGHT UPPER EXTREMITY Right Upper Arm - Anterior Firm brown papule that dimples with lateral pressure. Discussed that these are benign scars on the skin. If lesion is changing/symptomatic, return to office to have lesion re-evaluated Next Visit: 1 year documented in this encounterSaint [facility] [id number] History of Present illness Narrative* Marni Flowers APRN-FOOD EDITOR - 07/01/2024 9:00 AM EDT Subjective: Patient ID: Leana Tran is a 38 y.o. female presenting for neurological evaluation. History of Present Illness: Leana Tran is followed regarding long-Covid symptoms. She tested positive for Covid-19 on October 27, 2020. She feels as though she has the start of dementia and MS. Her neurological symptomsinclude: Fatigue, Headaches, Dizziness, Brain Fog, Memory Problems, Word Finding, Paresthesias, Balance, Myalgia, Arthralgia, Anxiety, Depression and PTSD. Fatigue: She wakes up tired and has more and more fatigue as the day progresses. Her limbs feel heavy. Initially, she had to nap due to the fatigue. She tries to complete tasks, but will have to stopand rest. It takes her much longer to complete any household task due to the overwhelming fatigue. Headaches: She is a patient with [facility]. History of classic migraine with aura.She had nearly daily migraines prior to November 2020. She had 8 migraines last month. She has a history of pseudotumor Cerebri. She receives Botox injections about every 3 months (first one in November 2020) and this has helped with overall management. She does take Nurtec as needed with good results . Brain fog/Memory problems/Word Finding: She developed cognitive [...] she used a walker for ambulation following hercovid-19 infection. She has regained some strength, but continues to lack stamina. She feels unsteady, as though she is on a boat. She has been working with vestibular therapy twice a week. Muscle Weakness: She has some generalized weakness, worse on the right side. She is right hand dominant. She drops items not infrequently. She has difficulty opening bottles or other items. She feelsas though her right leg does not work as well. She has to think about picking up her right leg whenshe walks. This does not necessarily improve with [...] thoracic spine (T4-7) in the past. This hasnot been evaluated in several years. Anxiety/Depression/PTSD: She [...] hahn/week, 3-4 migraines/month (some lasting several days) 06/2024: nearly daily headache, 1-2 migraines/week Current Meds: Ajovy Baclofen 20 mg B12 Cymbalta 60 mg D3 Lamictal 150 mg Mestinon 60 mg TID MTV Onglyza Singulair Symbicort Synthroid Ubrelvy (works) Zoloft 100 mg Zonisamide 200 mg Previous Meds: ASA Ativan Botox for migraine (Did not resolve headaches) Celexa Diamox (cognitive dysfunction) Emgality (didn't work) Fioricet (did not help) Januvia Modafinil Nurtec (not effective) Prazosin Prozac Reglan Rizatriptan Spironolactone Sumatriptan (worsened migraines, vision loss) Tizanidine Topiramate (cognitive dysfunction) Toradol Trazodone Zoloft Zyrtec Testing: MRI brain (03/31/2016): No acute intracranial findings. Chronic left mastoid sinus opacification. Noevidence of venous sinus thrombosis. MRA head/neck (03/31/2016): [...] and moves around a lot in her sleep.She generally goes to bed at about 10:30 PM. Sometimes it takes her hours to fall asleep. She wakesup several times a night. She usually gets [...] hysterectomy. 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 Current Visit: Seen in June 2024, she presents for a [facility] follow up visit. She logged on and consents to telehealth services. She verifies she is in [place]. She feels that her headaches have been worse. She has nearly daily headaches and 1-2 migraines a week. She says that they are typically a mix of sinus and tension headaches. They tend to be associated with her allergies and frequent changes in weather. She has been having more frequent massages and chiropractic adjustments. She has been taking Ajovy 675 mg every 12 weeks. She has flu-like symptoms when she does this. She prefers to take 225 mg every 4 weeks. Ubrelvy works well for her migraines. It relieves it to the point that she is able to function. She also takes 200 mg Zonisamide each evening for nerve pain and headache prevention. She is workingdays in L&D, post-, etc again. She does part-time days on weekends. She generally is sleeping better with a more consistent schedule. She had an updated sleep study. She is using a BiPAP. It is more tolerable with the updated settings. She does not have to write herself notes as frequently. She has to keep her calendar up to date so she does not miss appointments. She is not having wordfinding issues as frequently. They tend to recur if she is overly tired. She takes 60 mg Cymbalta nightly. This helps with her moods and pain. She is now taking 20 mg baclofen nightly. It is helping with her muscle tightness. The following portions of the patient's history were reviewed and updated as appropriate: allergies, current medications, past family history, past medical history, past social history, past surgicalhistory and problem list. Review of Systems Constitutional: [...] tremors, seizures, syncope, facial asymmetry, speech difficulty, light- headedness and numbness. Hematological: Negative. Psychiatric/Behavioral: Negative for agitation, behavioral problems, confusion, decreased concentration, dysphoric mood, hallucinations, self-injury, sleep disturbance and suicidal ideas. The patientis not nervous/anxious and is not hyperactive. Past Medical History: Diagnosis Date Allergic 1990 Allergic rhinitis 1990 Anxiety Asthma Back pain 1995 Bradycardia Chest pain Clotting disorder ([facility]) 1984 COVID Depression Diabetes mellitus ([facility]) Diabetes mellitus type 2, controlled ([facility]) Eczema 2005 Elevated troponin Fatty liver GERD (gastroesophageal reflux [...] Resource Strain: Medium Risk (04/08/2023) Received from [facility] Overall Financial Resource Strain (CARDIA) Difficulty of Paying Living Expenses: Somewhat hard Food Insecurity: No Food Insecurity (11/22/2023) Hunger Screening Food Insecurity - Worry: Never True Food Insecurity - Inability: Never True Transportation Needs: No Transportation Needs (04/08/2023) Received from [facility] PRAPARE - Transportation Lack of Transportation (Medical): No Lack of Transportation (Non-Medical): No Physical Activity: Insufficiently Active (04/08/2023) Received from [facility] Exercise Vital Sign Days of Exercise per Week: 4 days Minutes of Exercise per Session: 20 min Stress: No Stress Concern Present (04/08/2023) Received from [facility] [place] [facility] [employer] [facility] - Occupational Stress Questionnaire Feeling of Stress : Only a little Social Connections: Unknown (04/08/2023) Received from [facility] Social Connection and Isolation Panel [NHANES] Frequency of Communication with Friends and Family: More than three times a week Frequency of Social Gatherings with Friends and Family: Once a week Attends Church Services: Patient declined Active Member of Clubs or Organizations: Patient declined Attends Club or Organization Meetings: Patient declined Marital Status: Interpersonal Safety: Not At Risk (01/10/2023) Received from [employer] Humiliation, Afraid, Rape, and Kick questionnaire Fear of Current or Ex-Partner: No Emotionally Abused: No Physically Abused: No Sexually Abused: No Housing Instability: Patient Declined (04/08/2023) Received from [facility] Housing Stability Vital Sign Unable to Pay [...] on File Prior to Visit Medication Sig pyridostigmine (MESTINON) 60 mg tablet Take 1 tablet (60 mg total) by mouth 3 (three) times a day. sAXagliptin (ONGLYZA) 5 mg tablet Take 1 tablet (5 mg total) by mouth in the morning. albuterol (PROVENTIL HFA;VENTOLIN HFA) 90 mcg/actuation inhaler as needed. cholecalciferol, vitamin D3, (VITAMIN D3 ORAL) Take [...] 2 sprays into each nostril once daily. ketorolac (TORADOL) 10 mg tablet Take 1 tablet (10 mg total) by mouth every 6 (six) hours as neededfor pain. lamoTRIgine (LaMICtal) 150 mg tablet Take 1 tablet (150 mg total) by mouth once daily at bedtime. levocetirizine (XYZAL) 5 mg tablet Take 1 tablet (5 mg total) by mouth every evening. liothyronine (CYTOMEL) 5 MCG tablet TAKE 1 TABLET (5 MCG TOTAL) BY MOUTH IN THE MORNING. magnesium gluconate (MAGONATE) 500 mg tablet tablet Take 27 mg by mouth in the morning and 27 mg before bedtime. 600 mg. montelukast (SINGULAIR) 10 mg tablet Take 1 tablet (10 mg total) by mouth in the morning. ondansetron ODT (ZOFRAN ODT) 4 mg disintegrating tablet 1 (ONE) TABLET BY MOUTH EVERY SIX HOURS, ASNEEDED pantoprazole (PROTONIX) 40 mg EC tablet Take by mouth daily. sertraline (ZOLOFT) 100 mg tablet Take 1 tablet (100 mg total) by mouth in the morning. SYNTHROID 100 mcg tablet TAKE 1 TABLET (100 MCG TOTAL) BY MOUTH IN THE MORNING UBRELVY 100 mg tablet Take 100 mg by mouth once as needed (migraine) for up to 1 dose. No current facility-administered medications on file prior to visit. OARRS was reviewed by DEX Oleary. Objective: There were no vitals taken for this visit. Physical Exam: Mental Status: Orientation: Oriented to person, place and time. March 02, 2021, no idea what day of the week it is. [facility] in [place]--Neurology. Level of consciousness: alert. Knowledge: good and consistent with education. Intact short-term memory and intact long-term memory. Vocabulary is normal. 01/11/41=no idea 10/16/2000= the twin towers in [place] fell down because a plane hit them. 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 Assessment/Plan: 07/01/2024 VV: Seen in June 2024, she presents for a [facility] follow up visit. She logged on and consents to telehealth services. She verifies she is in [place]. She feels that her headaches have been worse.She has nearly daily headaches and 1-2 migraines a week. She says that they are typically a mix of sinus and tension headaches. They tend to be associated with her allergies and frequent changes in weather. She has been having more frequent massages and chiropractic adjustments. She has been takingAjovy 675 mg every 12 weeks. She has flu-like symptoms when she does this. She prefers to take 225 mg every 4 weeks. Ubrelvy works well for her migraines. It relieves it to the point that she is ableto function. She also takes 200 mg Zonisamide each evening for nerve pain and headache prevention. 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 She does part-time days on weekends. She generally is sleeping better with a more consistent schedule. She had an updated sleep study. She is using a BiPAP. It is more tolerable with the updated settings. She does not have to write herself notes as frequently. She has to keep her calendar up to date so she does not miss appointments. She is not having word finding issues as frequently. They tend to recur if she is overly tired. She takes 60mg Cymbalta nightly. This helps with her moods and pain. She is now taking 20 mg baclofen nightly. It is helping with her muscle tightness. 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 Leana has been screened for clinical depression [...] back off of your activity. It can takemonths for your brain to heal from long [...] injector pen subcutaneously every 12 weeks (84 days)for migraine prevention. You should not get while taking Ajovy because there is no data tosupport its safety. Ajovy should be stopped 5-6 months prior to trying to conceive. #8. Zonisamide 100 mg capsules. Take 2 capsules daily with your evening meal for migraine prevention and nerve pain. This can cause numbness & tingling in your hands, feet, and lips, word findingdifficulties or other cognitive dysfunction. Call the office at [phone] or send a Warby Parker message if you develop any of these problems. #9. Ubrelvy 100 mg tablets. Take 1 tablet at the onset of a headache. You can repeat this once 2 hours later. Do not take more than 2 doses in 24-[place] [id number] to activate co-pay card. #10. Prednisone 20 mg tablets. Take 4 tablets (2 +2) for 5 days with food and a low sodium diet. This can cause upset stomach, mood swings, irritability, weight gain, susceptibility to infections, etc. #11. Return for follow-up in 6 months (December 26, 2024 at 10:15 AM), earlier if needed. --[id number] [place] [address] Total time spent was 20 minutes: Preparing to see the patient (e.g., review of tests) Obtaining and/or reviewing separately obtained history Performing a medically appropriate examination and/or evaluation Counseling and educating the patient/family/caregiver Ordering medications, tests, or procedures Referring and communicating with other health career development director (not separately reported) Documenting clinical information in the electronic or other health record Independently interpreting results (not separately reported) and communicating results to the patient/family/caregiver Care coordination (not separately reported) - Marni Flowers DNP, DEX 07/01/24 9:13 AM DEX Oleary 01/02/24 1034 DEX Oleary 07/01/24 0913 documented in this encounterLanc[facility]05-27-2025 Instructions* Patient Instructions* DEX Oleary - 07/01/2024 9:00 AM EDT #1. Good sleep hygiene. Go to [...] back off of your activity. It can takemonths for your brain to heal from long [...] injector pen subcutaneously every 12 weeks (84 days)for migraine prevention. You should not get while taking Ajovy because there is no data tosupport its safety. Ajovy should be stopped 5-6 months prior to trying to conceive. #8. Zonisamide 100 mg capsules. Take 2 capsules daily with your evening meal for migraine prevention and nerve pain. This can cause numbness & tingling in your hands, feet, and lips, word findingdifficulties or other cognitive dysfunction. Call the office at [phone] or send a Warby Parker message if you develop any of these problems. #9. Ubrelvy 100 mg tablets. Take 1 tablet at the onset of a headache. You can repeat this once 2 hours later. Do not take more than 2 doses in 24-[place] [id number] to activate co-pay card. #10. Prednisone 20 mg tablets. Take 4 tablets (2 +2) for 5 days with food and a low sodium diet. This can cause upset stomach, mood swings, irritability, weight gain, susceptibility to infections, etc. #11. Return for follow-up in 6 months (December 26, 2024 at 10:15 AM), earlier if needed. --[id number] [id number] documented in this encounterLancaster [facility] Hospital04-14-2025 Telephone encounter Note* Telephone Encounter - Cas Dowell MD - 05/19/2024 11:49 AM EDT [facility] sent. [id number] Miscellaneous Notes* Telephone Encounter - Cas Dowell MD - 05/19/2024 11:49 AM EDT New script sent. * Telephone Encounter - Lorene Perdomo MA - 05/19/2024 9:17 AM EDT Patient sent message, states insurance is no longer covering onglyza, needs new script for Marck documented in this encounterSaint [facility] [id number] Telephone encounter Note* Telephone Encounter - Lorene Perdomo MA - 05/19/2024 9:17 AM EDT Patient sent message, states insurance is no longer covering onglyza, needs new script for [email or web address].clm [facility] [id number] History of Present illness Narrative* Cas Dowell MD - 02/27/2024 8:57 AM ESTAssociated Problem(s): COVID-19 Recent infection and continued cough and SOB. Repeat steroids and use albuterol every 4 hours x 48 then PRN. Use OTC PRN for symptoms. * Cas Dowell MD - 02/27/2024 8:15 AM EST Images from the original note were not included. Subjective Patient ID: Leana Tran is a 38 y.o. female who presents for Follow-up ([facility] er f/up/Covid + 02/20/24 /Head feel funny ). ER follow up from 02/19 for Covid. Developed cough, SOB, and pain in left side chest. To urgent careand vitals stable. Covid positive and directed to [...] (Deltasone) 10 MG tablet documented in this encounterSaint [facility] [id number] History of Present illness Narrative* Cas Dowell MD - 02/11/2024 10:36 AM ESTAssociated Problem(s): Type 2 diabetes mellitus with hyperglycemia, without long-term current use of insulin (CMS/HCC) Reports BS controlled and due for A1C. Stick to ADA diet and limit carbs. * Cas Dowell MD - 02/11/2024 10:36 AM ESTAssociated Problem(s): Moderate persistent asthma without complication (CMS/HCC) Breathing stable with symbicort and continue. Tachycardia from albuterol and try xopenex PRN. * Cas Dowell MD - 02/11/2024 10:36 AM ESTAssociated Problem(s): MDD (major depressive disorder), recurrent episode, mild (HCC) (CMS/HCC) Symptoms stable and follow with psychiatry. * Cas Dowell MD - 02/11/2024 10:36 AM ESTAssociated Problem(s): Edema of both legs Edema stable and elevate legs PRN. 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 * Cas Dowell MD - 02/11/2024 10:35 AM ESTAssociated Problem(s): Chronic allergic rhinitis due to pollen Symptoms stable with medication and continue. * Cas Dowell MD - 02/11/2024 10:35 AM ESTAssociated Problem(s): Autonomic dysfunction Continued symptoms and continue medication. Follow with cardiology as scheduled. * Cas Dowell MD - 02/11/2024 10:23 AM ESTAssociated Problem(s): Gastroesophageal reflux disease No symptoms * Cas Dowell MD - 02/11/2024 10:23 AM ESTAssociated Problem(s): Class 2 severe obesity due to excess calories with serious comorbidity and body mass index (BMI) of 37.0 to 37.9 in adult ([facility]) Weight loss indicated * Cas Dowell MD - 02/11/2024 9:45 AM EST Images from the original note were not included. Subjective Patient ID: Leana Tran is a 38 y.o. female who presents for Follow-up (3m/). Follow up DM, post-covid, asthma, allergies, and edema. Patient stable today. Reports BS controlledaround 88-100. Tries to eat well and stick to ADA diet. Denies signs of elevated BS such as polyuria, polyphagia or polydipsia. Post- covid symptoms unchanged. Continues to have severe fatigue. [...] and albuterol PRN which helps. Seen by demo event specialist and added spiriva. PFTs abnormal. Following with [...] (major depressive disorder), recurrent episode, mild (HCC) ([facility]) Symptoms stable and follow with psychiatry. Type 2 diabetes mellitus with hyperglycemia, without long-term current use of insulin ([facility]) - Primary Reports BS controlled and due for A1C. Stick to ADA diet and limit carbs. Relevant Medications sAXagliptin (Onglyza) 5 MG tablet Other Relevant Orders Hemoglobin A1c Gastroesophageal reflux disease No symptoms Moderate persistent asthma without complication ([facility]) Breathing stable with symbicort and continue. Use albuterol PRN. Relevant Medications levalbuterol (Xopenex HFA) 45 MCG/ACT inhaler Chronic [id number] syndrome No change in symptoms and monitor. Edema of both legs Edema stable and elevate legs PRN. Class 2 severe obesity due to excess calories with serious comorbidity and body mass index (BMI) of37.0 to 37.9 in adult ([facility]) Weight loss indicated documented in this encounterSaint Luke's [facility] Hospital[facility] [id number] Miscellaneous Notes* Telephone Encounter - Camille James - 01/02/2024 12:33 PM ESTSummary: Sample Medication Marni gave 3 Ajovy samples with a lot number of [id number] and expiration date of 07/2024. Please attachinformation to the patients chart. documented in this encounterLancaster [facility] Hospital11-27-2024 Telephone encounter Note* Telephone Encounter - Camille James - 01/02/2024 12:33 PM ESTSummary: Sample Medication Marni gave 3 Ajovy samples with a lot number of [id number] and expiration date of 07/2024. Please attachinformation to the patients chart. [facility]11-27-[facility] History of Present illness Narrative* Marni Lionel, [employer] PRODUCER-FOOD EDITOR - 01/02/2024 10:30 AM EST Subjective: Patient ID: Leana Tran is a 38 y.o. female presenting for neurological evaluation. History of Present Illness: Leana Tran is followed regarding long-Covid symptoms. She tested positive for Covid-19 on October 27, 2020. She feels as though she has the start of dementia and MS. Her neurological symptomsinclude: Fatigue, Headaches, Dizziness, Brain Fog, Memory Problems, Word Finding, Paresthesias, Balance, Myalgia, Arthralgia, Anxiety, Depression and PTSD. Fatigue: She wakes up tired and has more and more fatigue as the day progresses. Her limbs feel heavy. Initially, she had to nap due to the fatigue. She tries to complete tasks, but will have to stopand rest. It takes her much longer to complete any household task due to the overwhelming fatigue. Headaches: She is a patient with [facility]. History of classic migraine with aura.She had nearly daily migraines prior to November 2020. She had 8 migraines last month. She has a history of pseudotumor Cerebri. She receives Botox injections about every 3 months (first one in November 2020) and this has helped with overall management. She does take Nurtec as needed with good results . Brain fog/Memory problems/Word Finding: She developed cognitive [...] she used a walker for ambulation following hercovid-19 infection. She has regained some strength, but continues to lack stamina. She feels unsteady, as though she is on a boat. She has been working with vestibular therapy twice a week. Muscle Weakness: She has some generalized weakness, worse on the right side. She is right hand dominant. She drops items not infrequently. She has difficulty opening bottles or other items. She feelsas though her right leg does not work as well. She has to think about picking up her right leg whenshe walks. This does not necessarily improve with [...] thoracic spine (T4-7) in the past. This hasnot been evaluated in several years. Anxiety/Depression/PTSD: She [...] intracranial findings. Chronic left mastoid sinus opacification. Noevidence of venous sinus thrombosis. MRA head/neck (03/31/2016): [...] and moves around a lot in her sleep.She generally goes to bed at about 10:30 PM. Sometimes it takes her hours to fall asleep. She wakesup several times a night. She usually gets up between 5-11 AM. She drinks green tea + 1 caffeinated soda a month. She does not drink alcohol regularly (1-2 drinks, 1-2 times a year). She does not smoke or use recreational drugs. She does not exercise regularly. She has three children (2004, 2006, and 2007). She had a hysterectomy. 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 Current Visit: Seen in December 2023, she presents for a follow up visit. She states that she has problems gettingher medications refilled through the pharmacy. Apparently the pharmacy now special orders the Ajovyand it is often late. She states that [...] is overly tired. She takes 60 mg Cymbaltanightly. This helps with her moods and pain. She is now taking 10 -15 mg baclofen nightly. It is helping with her muscle tightness. The following portions of the patient's history were reviewed and updated as appropriate: allergies, current medications, past family history, past medical history, past social history, past surgicalhistory and problem list. Review of Systems Constitutional: [...] tremors, seizures, syncope, facial asymmetry, speech difficulty, light- headedness and numbness. Hematological: Negative. Psychiatric/Behavioral: Negative for agitation, behavioral problems, confusion, decreased concentration, dysphoric mood, hallucinations, self-injury, sleep disturbance and suicidal ideas. The patientis not nervous/anxious and is not hyperactive. Past Medical History: Diagnosis Date Allergic 1990 Allergic rhinitis 1990 Anxiety Asthma Back pain 1995 Bradycardia Chest pain Clotting disorder ([facility]) 1984 COVID Depression Diabetes mellitus ([facility]) Diabetes mellitus type 2, controlled ([facility]) Eczema 2006 Elevated troponin Fatty liver GERD [...] Resource Strain: Medium Risk (04/08/2023) Received from [facility], [facility] Overall Financial Resource Strain (CARDIA) Difficulty of Paying Living Expenses: Somewhat hard Food Insecurity: No Food Insecurity (11/22/2023) Hunger Screening Food Insecurity - Worry: Never True Food Insecurity - Inability: Never True Transportation Needs: No Transportation Needs (04/08/2023) Received from [facility] PRAPARE - Transportation Lack of Transportation (Medical): No Lack of Transportation (Non-Medical): No Physical Activity: Insufficiently Active (04/08/2023) Received from [facility] Exercise Vital Sign Days of Exercise per Week: 4 days Minutes of Exercise per Session: 20 min Stress: No Stress Concern Present (04/08/2023) Received from [facility] [employer] - Occupational Stress Questionnaire Feeling of Stress : Only a little Social Connections: Unknown (04/08/2023) Received from [facility] Social Connection and Isolation Panel [NHANES] Frequency of Communication with Friends and Family: More than three times a week Frequency of Social Gatherings with Friends and Family: Once a week Attends Church Services: Patient declined Active Member of Clubs or Organizations: Patient declined Attends Club or Organization Meetings: Patient declined Marital Status: Interpersonal Safety: Not At Risk (01/10/2023) [facility] from [facility], [facility] Humiliation, Afraid, Rape, and Kick questionnaire Fear of Current or Ex-Partner: No Emotionally Abused: No Physically Abused: No Sexually Abused: No Housing Instability: Patient Declined (04/08/2023) Received from [facility] Housing Stability Vital Sign Unable [...] SPRAY INTO EACH NOSTRIL IN THE MORNING ANDBEFORE BEDTIME DIRECTED baclofen (LIORESAL) 10 mg tablet [...] daily. fremanezumab-vfrm (AJOVY 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) 225 mg/1.5 mL INJECT [...] (ONE) TABLET BY MOUTH EVERY SIX HOURS, ASNEEDED pantoprazole (PROTONIX) 40 mg EC tablet Take by mouth daily. sertraline (ZOLOFT) 100 mg tablet Take 0.5 tablets (50 mg total) by mouth in the morning. SITagliptin (JANUVIA) 100 mg tablet Take 1 tablet (100 mg total) by mouth in the morning. Only whensugar is over 140. SYMBICORT 160-4.5 mcg/actuation inhaler [...] prior to visit. OARRS was reviewed by Marni Flowers APRN-MACY. Objective: BP 127/77 Pulse 79 Ht 162.6 cm (5' 4 ) Wt 100.7 kg (222 lb) BMI 38.11 kg/m Physical Exam: Mental Status: Orientation: Oriented to person, place and time. March 02, 2021, no idea what day of the week it is. [facility] in [place]--Neurology. Level of consciousness: alert. Knowledge: good and consistent with education. Intact short-term memory and intact long-term memory. Vocabulary is normal. 01/11/41=no idea 10/16/2000= the twin towers in [place] fell down because a plane hit them. 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 She takes60 mg Cymbalta nightly. This helps with her moods and pain. She is now taking 10 -15 mg baclofen nightly. It is helping with her muscle tightness. 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 Leana has been screened for clinical depression [...] back off of your activity. It can takemonths for your brain to heal from long [...] injector pen subcutaneously every 12 weeks (84 days)for migraine prevention. You should not get while taking Ajovy because there is no data tosupport its safety. Ajovy should be stopped 5-6 months prior to trying to conceive. #8. Zonisamide 100 mg capsules. Take 2 capsules daily with your evening meal for migraine prevention and nerve pain. This can cause numbness & tingling in your hands, feet, and lips, word findingdifficulties or other cognitive dysfunction. Call the office at [phone] or send a Warby [employer] message if you develop any of these problems. #9. Ubrelvy 100 mg tablets. Take 1 tablet at the onset of a headache. You can repeat this once 2 hours later. Do not take more than 2 doses in 24[place] [address] to [place]-pay card. #10. Return for follow-up in 6 months, earlier if needed. Total time spent was 20 minutes: Preparing to see the patient (e.g., review of tests) Obtaining and/or reviewing separately obtained history Performing a medically appropriate examination and/or evaluation Counseling and educating the patient/family/caregiver Ordering medications, tests, or procedures Referring and communicating with other health career development director (not separately reported) Documenting clinical information in the electronic or other health record Independently interpreting results (not separately reported) and communicating results to the patient/family/caregiver Care coordination (not separately reported) - Marni Flowers DNP, APRN-CNP 01/02/24 10:34 AM DEX Oleary 01/02/24 1034 documented in this encounterChillicothe HospitalCogent 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 Group [facility] [id number] Instructions* Patient Instructions* DEX Oleary - 01/02/2024 10:30 AM EST [...] back off of your activity. It can takemonths for your brain to heal from long [...] injector pen subcutaneously every 12 weeks (84 days)for migraine prevention. You should not get while taking Ajovy because there is no data tosupport its safety. Ajovy should be stopped 5-6 months prior to trying to conceive. #8. Zonisamide 100 mg capsules. Take 2 capsules daily with your evening meal for migraine prevention and nerve pain. This can cause numbness & tingling in your hands, feet, and lips, word findingdifficulties or other cognitive dysfunction. Call the office at [phone] or send a Warby Parker message if you develop any of these problems. #9. Ubrelvy 100 mg tablets. Take 1 tablet at the onset of a headache. You can repeat this once 2 hours later. Do not take more than 2 doses in 24-[place] [address] to activate co-pay card. #10. Return for follow-up in 6 months, earlier if needed. [facility] Miscellaneous Notes* Telephone Encounter - Pat Heck - 12/06/2023 6:29 AM EDTSummary: Med refill request Jefry Douglas. Pat documented in this encounterLancaster [facility] Hospital10-31-2024 Telephone encounter Note* Telephone Encounter - Pat Heck - 12/06/2023 6:29 AM EDT Summary: Med refill request Jefry Douglas. aPt [facility]10-[facility] History of Present illness Narrative* Akila Yao MD - 11/22/2023 8:45 AM EDT REASON FOR VISIT: Leana Tran is seen [...] Thyroid is small with a slightly heterogeneous echotexture.No nodules are identified. Right lobe measures 3.1 [...] mg total) by mouth once daily at bedtime.,Disp: , Rfl: levocetirizine (XYZAL) 5 mg tablet, Take 1 tablet (5 mg total) by mouth every evening., Disp: , Rfl: magnesium 250 mg tablet, Take 1 tablet (250 mg total) by mouth., Disp: , Rfl: montelukast (SINGULAIR) 10 mg tablet, Take 1 tablet (10 mg total) by mouth in the morning., Disp: ,Rfl: ondansetron ODT (ZOFRAN ODT) 4 mg disintegrating [...] total) by mouth in the morning., Disp: ,Rfl: SITagliptin (JANUVIA) 100 mg tablet, Take 1 [...] pain 1995 Bradycardia Chest pain Clotting disorder ([facility]) 1984 COVID Depression Diabetes mellitus ([facility]) Diabetes mellitus type 2, controlled ([facility]) Eczema 2006 Elevated troponin Fatty liver GERD [...] euthyroid, some improvement in symptoms. She still struggleswith fatigue and brain fog. I will check updated thyroid labs and consider T3 therapy based on her blood work. Continue brand-name Synthroid. 1. 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 - TSH; Future - T4, free; Future RETURN TO CLINIC: 1 year documented in this encounterChillicothe HospitalBioscan [id number] History of Present illness Narrative* Akila Koch LPN - 11/20/2023 11:20 AM EDT Reason for Appointment: Patient ID: Leana Tran [...] Diagnosis Date Noted PTSD (post-traumatic stress disorder) ([facility]) 12/24/2020 Allergic reaction to contrast dye 07/25/2021 Chronic allergic rhinitis due to pollen 12/22/2015 Anxiety 03/02/2021 Arachnoid cyst of pituitary gland 04/07/2015 Aspirin allergy 02/10/2021 Autonomic dysfunction 02/10/2021 Bleeding disorder ([facility]) 02/23/2014 Symptomatic bradycardia 12/24/2020 Cervicalgia 03/02/2021 Depression ([facility]) 12/24/2020 Type 2 diabetes mellitus with hyperglycemia, without long-term current use of insulin ([facility]) 12/24/2020 Diffuse pain 08/23/2021 Adverse food reaction 07/25/2021 Dyspareunia in female 01/12/2023 Gastroesophageal reflux disease 12/22/2015 Gross hematuria 01/12/2023 Hearing loss 12/22/2015 History of hysterectomy 02/10/2021 Hyperlipidemia ([facility]) 12/22/2015 Irritable bowel syndrome 12/22/2015 Memory difficulties 03/02/2021 Migraine without aura and without status migrainosus, not intractable ([facility]) 12/24/2020 Moderate persistent asthma without complication ([facility]) 07/25/2021 KATELIN (obstructive sleep apnea) 12/24/2020 Ovarian cyst 01/12/2023 Palpitations 10/20/2021 Decreased activity tolerance 08/23/2021 Chronic [id number] syndrome 03/02/2021 Primary hypothyroidism ([facility]) 12/22/2015 Qualitative platelet disorder ([facility]) 04/03/2022 Right inguinal hernia 01/12/2023 [...] 12/22/2015 Adenovirus infection 01/10/2022 Exacerbation of asthma ([facility]) 01/08/2022 Asthma ([facility]) 12/22/2015 Blood pressure instability 05/24/2021 Chest pain 12/24/2020 Drug reaction 07/25/2021 Generalized headache 12/22/2015 Hypersomnia with sleep apnea 03/02/2021 Orthostatic intolerance 08/23/2021 Orthostatic lightheadedness 05/24/2021 RSV (respiratory syncytial virus infection) 01/10/2022 Stress incontinence 01/12/2023 Syncope and collapse 05/24/2022 Acute non-recurrent pansinusitis 04/09/2023 Past Medical History: Diagnosis Date Abdominal pain, generalized Abnormality of plasma protein, unspecified Anxiety and depression (CMS/HCC) Arachnoid cyst Celiac disease (CMS/HCC) Chronic sinusitis Deaf, right Edema, peripheral Hernia, abdominal Herpes zoster without complication History of cardiac monitoring History of thyroid nodule Hormone imbalance Hot flashes due to surgical menopause Hypothyroid (CMS/HCC) Insomnia, persistent Medication reaction Metabolic syndrome Mild persistent asthma without complication (CMS/HCC) Myoclonic jerking, massive Paresthesia Post-COVID syndrome POTS (postural orthostatic tachycardia syndrome) Seasonal allergic rhinitis due to pollen Urinary hesitancy HISTORY PAST MEDICAL HISTORY SOCIAL HISTORY Past Medical History: Diagnosis Date Abdominal pain, generalized Abnormality of plasma protein, unspecified deficiency (easy bleeder) Anxiety and depression (CMS/HCC) Arachnoid cyst in brain (2015) Asthma ([facility]) Celiac disease ([facility]) Chronic sinusitis Deaf, right Depression ([facility]) Dyspareunia in female Edema, peripheral Gastroesophageal reflux disease Hernia, abdominal Herpes zoster without complication History of cardiac monitoring Pt currently has cardiac heart monitor 06/27/2022 History of hysterectomy History of thyroid nodule Hormone imbalance Hot flashes due to surgical menopause Hypothyroid (CMS/HCC) Insomnia, persistent Medication reaction Metabolic syndrome Mild persistent asthma without complication ([facility]) Myoclonic jerking, massive Ovarian cyst Paresthesia Post-COVID syndrome POTS (postural orthostatic tachycardia syndrome) Right inguinal hernia Seasonal allergic rhinitis due to pollen Type 2 diabetes mellitus with hyperglycemia, without long-term current use of insulin ([facility]) Urinary hesitancy Vitamin D deficiency [...] CONTRAST OTHER SURGICAL HISTORY 2014 uterine ablation TX LAP,CHOLECYSTECTOMY 2009 [place] LAPAROSCOPY W/LYSIS OF ADHESIONS 2010 SALPINGECTOMY Bilateral [...] nursing note reviewed. Exam conducted with a rn child present. Vitals: Estimated body mass index is [...] of: Rubens Tim DO documented in this encounterSaint Luke's North Hospital–Barry [id number] History of Present illness Narrative* Christy Painting MD - 11/07/2023 10:00 AM EDT Leana Tran is a very pleasant 37 y.o. year old female who comes to the office today with the chief complaint of allergic episodes. She is having allergic reactions where she needs epinephrine and then has to go to the ER. On exposure to essential oils or air fresheners or deodorant or body wash she will have a reaction. She willget a rash and then hives and chest tightness and then wheeze. She will clear her throat and then cough and she will have trouble talking and can't speak during these episodes. 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 She was blue and her co-workers thought she was going to need CPR. She went to the ER and was given steroids and epinephrine and nebulizer as well as pepcid and Benadryl with these episodes. She has a history of asthma as well but she does not feel this is asthma. She has throattightness during these episodes. She was told that [...] skin on the arms. She has pyrosis andhiatal hernia. Asthma control test today is 14. [...] up in the speech therapy Clinic in [facility]. As she has a history [...] Symbicort with spacer. Add Spiriva [facility] in [place]. Technique. We agreed she would use Symbicort with a spacer to try and help protect her vocal cords. As she has persistent asthma symptoms we agreed to add Spiriva to her regimen. As this is a new device for her we reviewedproper technique for this in the office today. We discussed the risks and benefits of biological agents and she would like to defer on this at the current time. Time of visit 70 minutes not inclusive of time to perform spirometry and skin testing. documented in this encounterSaint Luke's North Hospital–Barry [id number] History of Present illness Narrative* Cas Dowell MD - 10/23/2023 2:04 PM EDT The patient needs a letter stating she requires a medical exception from the influenza vaccination due to a history of anaphylactic reactions to vaccines. 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 Hx Cesar autoimmune thyroid disease, celiac disease. She underwent an implantable loop recorder for penitentiary cardiac rhythm monitoring due to syncope in June 2022. Chief Complaint: OI/ syncope. ILR Only a few episodes of near syncope since seen, blackouts . 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 High fasting glucose. May [...] Telehealth Visit: 10/10/2023 The visit was conducted vbre-ek-nolo with the use of audio and video technology using HIPAA approved BYOM! WebEX between patient and the provider for a [...] Unable to get long acting preparation. 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 2. Syncope. Chronic. Stable. No syncope. Presyncope. Improved with day shift. 3. ILR. Chronic. Stable. No arrhythmia. Device with good function. Macrina Wadsworth APRN PhD [facility]ope [facility] Aut[facility] Nurse Practitioner Division of Cardiovascular Medicine [facility] 10-10-2023 History of Present illness Narrative* Cas Dowell MD - 10/10/2023 9:42 AM EDTAssociated Problem(s): Type 2 diabetes mellitus with hyperglycemia, without long-term current use of insulin ([facility]) Reports BS controlled and A1C 5.6. Stick to ADA diet and limit carbs. Insulin elevated and stop januvia. Start ozempic. * Cas Dowell MD - 10/10/2023 9:42 AM EDTAssociated Problem(s): Moderate persistent asthma without complication (CMS/HCC) Breathing stable with symbicort and continue. Use albuterol PRN. * Cas Dowell MD - 10/10/2023 9:42 AM EDTAssociated Problem(s): Edema of both legs Edema stable and elevate legs PRN. * Cas Dowell MD - 10/10/2023 9:42 AM EDTAssociated Problem(s): Chronic aaei-EXXTH-43 syndrome No change in symptoms and monitor. * Cas Dowell MD - 10/10/2023 9:42 AM EDTAssociated Problem(s): Chronic allergic rhinitis due to pollen Symptoms stable with medication and continue. * Cas Dowell MD - 10/10/2023 9:00 AM EDT Images from the original note were not included. Subjective Patient ID: Leana Tran is a 37 y.o. female who presents for Follow-up (6 m). Follow up DM, post-covid, asthma, allergies, and edema. Patient stable today. Reports BS controlledaround 110 and recent A1C 5.6. Tries to eat well and stick to ADA diet. Denies signs of elevated BSsuch as polyuria, polyphagia or polydipsia. Post-covid symptoms unchanged. Continues to have severefatigue. Not able to do things around house [...] symbicort and continue. Use albuterol PRN. Chronic dtkl-[id number]-69 syndrome No change in symptoms and monitor. Edema of both legs Edema stable and elevate legs PRN. documented in this encounterSaint Luke's North Hospital–Barry [id number] Instructions* Patient Instructions* Fuentes Amaral MD - 10/01/2023 10:04 AM EDT Continue Amicar prior to dental extraction FFP for major surgery. RTC in 12 months - cbc, cmp documented in this encounterMer[facility]08-26-2024 History of Present illness Narrative* Fuentes Amaral MD - 10/01/2023 9:45 AM EDT Images from the original note were not included. 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 Her step- father has also . 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 No date: REMOVAL GALLBLADDER No date: TUBAL LIGATION HX Social History Tobacco Use Smoking status: Never Passive exposure: Past Smokeless tobacco: Never Vaping Use Vaping status: Never Used Substance Use Topics Alcohol use: Not Currently Drug use: Not Currently FAMILY HISTORY Problem Relation Age of Onset Diabetes Mother uncontrolled Hypertension Mother Heart Attack Mother First [place] at age 51 Cardiomyopathy Mother at age [...] which included preparing to see the patient, cpxy-ba-wgus patient care, completing clinical documentation, performing a medically appropriate examination, ordering medications, tests, or procedures, and communicating results to the patient/fam jair/caregiver. Fuentes Amaral MD, CPE Hematology and Oncology Services Provided at: [place], [place] Scribe Attestation: This note was scribed [...] direction. CC: Cas Cronin documented in this encounterMercy Health West Hospital08-21-2024 History of Present illness Narrative* Cas Dowell MD - 09/26/2023 10:10 AM EDTAssociated Problem(s): Allergic reaction Recent reaction and improved with treatment. Reactions getting worse and refer to demo event specialist. * Cas Dowell MD - 09/26/2023 9:15 AM EDT Images from the original note [...] to feel itchy throat and SOB. Asked Dula what was in lotion but wouldn't let her see it. After few minutes startedto feel increased SOB and facial swelling. Used own epipen and taken to ER. Given steroids and discharged. Doing well today and no further rash or hives. Patient concerned of allergic reactions and faster symptom onset. Requests referral to demo event specialist. Review of Systems Respiratory: Negative for cough, [...] treatment. Reactions getting worse and refer to demo event specialist. Relevant Orders Ambulatory referral to Allergy documented in this encounterSaint Luke's North Hospital–Barry [id number] History of Present illness Narrative* Marni Flowers APRN-FOOD EDITOR - 07/05/2023 3:30 PM EDT Subjective: Patient ID: Leana Tran is a 37 y.o. female presenting for neurological evaluation. History of Present Illness: Leana Tran is followed regarding long-Covid symptoms. She tested positive for Covid-19 on October 27, 2020. She feels as though she has the start of dementia and MS. Her neurological symptomsinclude: Fatigue, Headaches, Dizziness, Brain Fog, Memory Problems, Word Finding, Paresthesias, Balance, Myalgia, Arthralgia, Anxiety, Depression and PTSD. Fatigue: She wakes up tired and has more and more fatigue as the day progresses. Her limbs feel heavy. Initially, she had to nap due to the fatigue. She tries to complete tasks, but will have to stopand rest. It takes her much longer to complete any household task due to the overwhelming fatigue. Headaches: [facility] is [facility]. History of classic migraine with aura.She had nearly daily migraines prior to November 2020. She had 8 migraines last month. She has a history of pseudotumor Cerebri. She receives Botox injections about every 3 months (first one in November 2020) and this has helped with overall management. She does take Nurtec as needed with good results . Brain fog/Memory problems/Word Finding: She developed cognitive [...] she used a walker for ambulation following hercovid-19 infection. She has regained some strength, but continues to lack stamina. She feels unsteady, as though she is on a boat. She has been working with vestibular therapy twice a week. Muscle Weakness: She has some generalized weakness, worse on the right side. She is right hand dominant. She drops items not infrequently. She has difficulty opening bottles or other items. She feelsas though her right leg does not work as well. She has to think about picking up her right leg whenshe walks. This does not necessarily improve with [...] thoracic spine (T4-7) in the past. This hasnot been evaluated in several years. Anxiety/Depression/PTSD: She [...] intracranial findings. Chronic left mastoid sinus opacification. Noevidence of venous sinus thrombosis. MRA head/neck (03/31/2016): [...] and moves around a lot in her sleep.She generally goes to bed at about 10:30 PM. Sometimes it takes her hours to fall asleep. She wakesup several times a night. She usually gets [...] hysterectomy. 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 Current Visit: Seen in June 2023, she presents for a VIDYO visit. She logged in and consents to telehealth services. She notes that since the beginning of the year, her migraines have been worse. She states that theAjoyancyy seems to be wearing off after 2-3 [...] post-, etc again. She anticipates moving to [place] in August or September. She has been working at least 24-40 hours a week. She is doing12 hour shifts (unless she is picking up extra). 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 She has found that the lack of consistent sleep is one of the most aggravating factors for hersymptoms. She does not have to write herself [...] past medical history, past social history, past surgicalhistory and problem list. Review of Systems Constitutional: [...] tremors, seizures, syncope, facial asymmetry, speech difficulty, light- headedness and numbness. Hematological: Negative. Psychiatric/Behavioral: Negative for agitation, behavioral problems, confusion, decreased concentration, dysphoric mood, hallucinations, self-injury, sleep disturbance and suicidal ideas. The patientis not nervous/anxious and is not hyperactive. Past Medical History: Diagnosis Date Allergic 1991 Allergic rhinitis 1990 Anxiety Asthma Back pain 1995 Bradycardia Chest pain Clotting disorder ([facility]) 1984 COVID Depression Diabetes mellitus ([facility]) Diabetes mellitus type 2, controlled ([facility]) Eczema 2006 Elevated troponin Fatty liver GERD [...] Resource Strain: Medium Risk (04/08/2023) Received from [facility] Overall Financial Resource Strain (CARDIA) Difficulty of Paying Living Expenses: Somewhat hard Food Insecurity: No Food Insecurity (05/08/2023) Hunger Screening Food Insecurity - Worry: Never True Food Insecurity - Inability: Never True Transportation Needs: No Transportation Needs (04/08/2023) Received from [facility] PRAPARE - Transportation Lack of Transportation (Medical): No Lack of Transportation (Non-Medical): No Physical Activity: Insufficiently Active (04/08/2023) Received from [facility] Exercise Vital Sign Days of Exercise per Week: 4 days Minutes of Exercise per Session: 20 min Stress: No Stress Concern Present (04/08/2023) Received from [facility] - Occupational Stress Questionnaire Feeling of Stress : Only a little Social Connections: Unknown (04/08/2023) Received from [facility] Social Connection and Isolation Panel [NHANES] Frequency of Communication with Friends and Family: More than three times a week Frequency of Social Gatherings with Friends and Family: Once a week Attends Church Services: Patient declined Active Member of Clubs or Organizations: Patient declined Attends Club or Organization Meetings: Patient declined Marital Status: Interpersonal Safety: Not At Risk (01/10/2023) Received from [facility], [facility] [place] Safety & Environment Within the [...] Housing Instability: Patient Declined (04/08/2023) Received from [facility], [facility] Housing Stability Vital Sign Unable to Pay for Housing in the Last Year: Patient declined Number of Places Lived in the Last Year: 1 In the last 12 months, was there a time when you did not have a steady place to sleep or slept in [place] (including now)?: Patient declined Family History Problem [...] sprays into each nostril once daily. fremanezumab-vfrm (CoolstuffOVAfraxis 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) 225 mg/1.5 mL Inject 1.5 mL [...] (ONE) TABLET BY MOUTH EVERY SIX HOURS, ASNEEDED pantoprazole (PROTONIX) 40 mg EC tablet Take [...] total) by mouth in the morning. Only whensugar is over 140. SYMBICORT 160-4.5 mcg/actuation inhaler [...] what day of the week it is. [facility] [place]--Neurology. Level of consciousness: alert. Knowledge: good and consistent with education. Intact short-term memory and intact long-term memory. Vocabulary is normal. 01/11/41=no idea 10/16/2000= the twin towers in [place] fell down because a plane hit them. 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 She anticipates moving to dayshift in August or September. She has been working at least 24-40 hours a week. She is doing 12 hour shifts (unless she is picking up extra). 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 She has found that the lack of consistent sleep is one of the most aggravating factors for her symptoms. She does not have to write herself notes as frequently. She has to keep hercalendar up to date so she does not [...] and the following intervention(s) were applied: encouragement toexercise. Leana has been screened for clinical depression [...] back off of your activity. It can takemonths for your brain to heal from long [...] in your hands, feet, and lips, word findingdifficulties or other cognitive dysfunction. Call the office at [phone] or send a Warby [employer] message if you develop any of these problems. #9. Ubrelvy 100 mg tablets. Take 1 tablet at the onset of a headache. You can repeat this once 2 hours later. Do not take more than 2 doses in 24-hours[place] [address] to [place] co-pay card. #10. Return for [...] procedures Referring and communicating with other health career development director (not separately reported) Documenting clinical information in the electronic or other health record Independently interpreting results (not separately reported) and communicating results to the patient/family/caregiver Care coordination (not separately reported) - Marni Flowers DNP, APRN-CNP 07/05/23 2:16 PM DEX Oleary 07/05/23 1417 documented in this encounterChillicothe HospitalCogent 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 Group [facility] [id number] Instructions* Patient Instructions* DEX Oleary - 07/05/2023 3:30 PM EDT [...] back off of your activity. It can takemonths for your brain to heal from long [...] in your hands, feet, and lips, word findingdifficulties or other cognitive dysfunction. Call the office at [phone] or send a Warby Parker message if you develop any of these problems. #9. Ubrelvy 100 mg tablets. Take 1 tablet at the onset of a headache. You can repeat this once 2 hours later. Do not take more than 2 doses in 24-hours. [place] 42324 to activate co-pay card. #10. Return for follow-up in 6 months (January 02, 2024 at 10:15 AM), earlier if needed. --increase zonisamide back to 200 mg, if headaches do not decrease, switch from Ajovy to Qulipta after 1 month documented in this encounterChillicothe HospitalCogent 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 Group [facility] Community [id number] History of Present illness Narrative* Sarah Best, DEX - 05/08/2023 8:45 AM EDT REASON FOR VISIT: Leana Tran is seen [...] 2.48 She has been to referred to [facility] for symptoms from COVID-19. Dizzy and lightheaded at times. Still some drops in her blood pressure at times. She is on Zonegran to help her sleep. She hada sleep study showing sleep apnea. She has [...] mg total) by mouth once daily at bedtime.,Disp: , Rfl: levocetirizine (XYZAL) 5 mg tablet, Take 1 tablet (5 mg total) by mouth every evening., Disp: , Rfl: magnesium 250 mg tablet, Take 1 tablet (250 mg total) by mouth., Disp: , Rfl: montelukast (SINGULAIR) 10 mg tablet, Take 1 tablet (10 mg total) by mouth in the morning., Disp: ,Rfl: ondansetron ODT (ZOFRAN ODT) 4 mg disintegrating [...] total) by mouth in the morning., Disp: ,Rfl: SITagliptin (JANUVIA) 100 mg tablet, Take 1 [...] pain 1995 Bradycardia Chest pain Clotting disorder ([facility]) 1984 COVID Depression Diabetes mellitus ([facility]) Diabetes mellitus type 2, controlled ([facility]) Eczema 2006 Elevated troponin Fatty liver GERD [...] DEX Jameson 05/08/23 0902 documented in this encounterLancaster Municipal Hospital08-28-2023 Instructions* Patient Instructions* Fuentes Amaral MD - 10/02/2022 9:51 AM EDT Continue Amicar prior to dentist appointment. 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 Fuentes Amaral MD, CPE Hematology and Oncology Services Provided at: [place], [place] CC: Cas Cronin documented in this encounterMercy Health West Hospital08-01-2023 Hospital Discharge instructions Patient Education 09/05/2022 09:06:17 Kidney Stones, Xpgv-bp-Jqmt Kidney Stones Kidney stones are rock-like masses [...] Follow these instructions at home: Medicines Take yfgu-lnw-xwwfkzx and prescription medicines only as told by [...] provider. Document Revised: 09/26/2021 Document Reviewed: 09/26/2021 [employer] Patient Education 2022 [employer]. Follow Up Care 02/28/2022 09:04:41 With:LORAINE BURNHAM PA-C, URL Address: [address] [place] [address] When: Unknown [facility] 03-29-2023 Miscellaneous Notes* Telephone Encounter - Yury Collins MA - 05/03/2022 11:43 AM EDT Images from the original note were not included. documented in this encounterMercy Health West Hospital03-22-2023 History of Present illness Narrative* Bhargavi Ramesh PA-C - 04/26/2022 1:00 PM EDT Headache Center - Follow up Virtual Visit During this COVID-19 pandemic, patient's headache clinic evaluation was scheduled as a virtual visit using the following platform Zoom - patient currently located in [place] Leana Tran was identified by name and [...] visit. Either the patient or their legal labor service representative has been informed of therisks and benefits of -- and alternatives to [...] verbalized understanding and agreed to treatment plan. Shewill follow up in 3 months or sooner [...] 2 mL via nebulizer every 12 hours. Inhaleover 5-15 minutes^Disp: 120 mL^Rfl: 5 SITagliptin (JANUVIA) 100 mg tablet^Take 1 tablet by mouth once daily.^Disp: ^Rfl: Magnesium 250 mg tab^Take 250 mg by mouth.^Disp: ^Rfl: ASCORBIC ACID, VITAMIN C, ORAL^Take 100 mg by mouth once daily. With zinc^Disp: ^Rfl: Zinc 50 mg tab^Take by mouth.^Disp: ^Rfl: fremanezumab-vfrm subcutaneus auto-injector 225 mg/1.5 mL (AJOVY)^Inject 1.5 mL subcutaneously onceevery month. Do not shake.^Disp: 1.5 mL^Rfl: 11 UBRELVY 100 mg tablet^TAKE 1 TABLET BY MOUTH AT ONSET OF MIGRAINE. MAY REPEAT IN 2 HOURS NEEDED.MAX 2 TABLET IN 24 HOURS^Disp: ^Rfl: baclofen [...] needed. Nomore than 1 dose in 24 hours.^Disp: 8 [...] last visit: Not applicable, I did not havea botox injection at my last visit Not [...] thrombosis. Unremarkable MRA brain and MRA neck. Laboratory Engineer: ROBER Transcribe Date/Time: Mar 31 2016 2:40P [...] change which could potentially contribute to headache. Laboratory Engineer: ROBER Transcribe Date/Time: Jun 27 2021 3:07P [...] # 1.10 - 3.70 k/uL 1.67 Absolute Tyrrell # 0.10 - 1.20 k/uL 0.37 Absolute [...] spontaneous and fluent without dysarthria. 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 Attention span and concentration are excellent. [...] up today virtually for migraines. Her neurological examinationis essentially normal at this visit. Stable on current regimen. Does not wish to make changes today. Refills provided. May try mini prevention with nurtec or ubrelvy around weather changes. Patientverbalized understanding and agreed to treatment plan. She [...] require high frequency use which can lead toMedication Overuse Headache: Analgesic Butalbital/acetaminophen/caffeine (Fioricet) Anti-Migraine Rizatriptan (Maxalt) Sumatriptan (Imitrex, Sumavel) GEPANTS Ubrogepant (Ubrelvy) Rimegepant (Nurtec) Leana Tran has been previously approved for an Oral Calcitonin Gene- Related Peptide Receptor Antagonist (GEPANT) Rimegepant for the treatment of acute migraine. The patient has demonstrated thefollowing: Provider attests patient has had a positive [...] require high frequency use which can lead toMedication Overuse Headache: Analgesic Butalbital/acetaminophen/caffeine (Fioricet) Anti-Migraine Rizatriptan [...] 15 minutes Bhargavi Ramesh PA-C Headache Section [facility] April 26, 2022 documented in this encounterMercy Health West Hospital03-13-2023 Instructions* Patient Instructions* Fuentes Amaral MD - 04/17/2022 5:31 PM EDT Keep prior appointment September documented in this encounterMercy Health West Hospital03-13-2023 History of Present illness Narrative* Fuentes Amaral MD - 04/17/2022 5:26 PM EDT AMBULATORY TELEPHONE VISIT Leana Tran has consented [...] minutes Fuentes Amaral MD documented in this encounterMercy Health West Hospital02-27-2023 Instructions* Patient Instructions* Fuentes Amaral MD - 04/03/2022 11:06 AM EST Platelet electron microscopy pending drawn Call results when available - anticipate 2 weeks Consider functional medicine referral for DM and PCOS Keep appointment with Dr. Stephon Cronin's group for POTS Trial of Amicar prior to dentist appointment. 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 Fuentes Amaral MD, CPE Hematology and Oncology Services Provided at: [place], [place] CC: Cas Cronin documented in this [facility]02-27-2023 Nurse Note* Elizabeth Rodriges MA - 04/03/2022 10:43 AM EST Patient is still bruising. Elizabeth Rodriges MA documented in this [facility]02-27-2023 Miscellaneous Notes* Telephone Encounter - Marlon Plaza - 04/03/2022 9:32 AM EST Images from the original note were not included. documented in this [facility]02-14-2023 Miscellaneous Notes* Telephone Encounter - Manda León RN - 03/21/2022 10:43 AM EST Received call from pt stating she was not able to get her PLT lab test done in [place] d/t them no longer doing them on or fridays so she needs to move out her appt with Dr Salas so she has timeto try again to get lab done. Pt transferred to dental front office assistant to reschedule f/u appt. Manda León RN documented in this [facility]01-24-2023 Hospital Discharge instructions Patient Education 02/28/2022 08:38:24 [...] camera on the end (urethroscope) is used tolook at the urethra. How is this treated? [...] reconstructed. Follow these instructions at home: Take cija-pfh-nrzryuv and prescription medicines only as told by your health care provider. If you were prescribed an antibiotic medicine, take it as told by your health care provider. Do notstop taking the antibiotic even if you start [...] 02/18/2016 Document Revised: 09/04/2018 Document Reviewed: 09/04/2018 [employer]Dove Patient Education 2020 [employer]pair. Follow Up Care 12/22/2021 14:08:59 With:LORAINE BURNHAM PA-C, URL Address: [address] [place] [address] When: Unknown [facility] 01-23-2023 History of Present illness Narrative* Tesfaye Whitman RPh - 02/27/2022 10:32 AM EST Refill Authorization Consent Leana Tran was encountered by text or mychart message to obtain consent for pharmacist managed refill authorization. Patient gives consent to the authorization of prescriptions by a pharmacist. Tesfaye Whitman RPh 02/27/2022 documented in this encounterMercy Health West Hospital01-20-2023 Miscellaneous Notes* Telephone Encounter - Vikash Oreilly RN - 02/24/2022 3:15 PM EST PA submitted via covermymeds. Kurt DUEÑAS MARC ([place]: [id number]) Your information has been submitted to [facility]. To check for an updated outcome later, reopen thisPA request from your dashboard. If [facility] has not responded to your request within 24 hours, contact [facility] at . If you think there may be a problem with your PA request, use our live chat feature at the bottom right. Viksah Oreilly RN February 24, 2022 3:16 PM documented in this encounterMercy Health West Hospital01-16-2023 Miscellaneous Notes* Telephone Encounter - Fuentes Amaral MD - 02/20/2022 8:50 AM EST Ok with me * Telephone Encounter - Manda León RN - 02/20/2022 8:43 AM EST Informed Lindsey of Dr Salas's response. Lindsey states that [facility] will only except if pt was drawn on pt was drawn on Sunday so they are sending it out today to [facility], unless Dr Salas would like pt to come back in for a redraw so it can be sent to [facility]. Manda León RN * Telephone Encounter - Fuentes Amaral MD - 02/17/2022 5:23 PM EST Colindres would be good. * Telephone Encounter - Manda León RN - 02/17/2022 4:03 PM EST Received call from Melodie at [facility] in [place] stating pt had her platelet transmission lab done there but it is a lab test that they send out to other labs and they wanted to know if Dr Salas has a preference on what lab they send it to d/t different labs running the test different ways. ZACH: Please advise. Manda León RN documented in this encounterMercy Health West Hospital01-13-2023 Miscellaneous Notes* Telephone Encounter - Loraine Huggins [facility] - 02/17/2022 9:45 AM EST Records faxed to Dr. Cronin. * Telephone Encounter - Shraon Hess - 02/17/2022 8:55 AM EST Pt would like referral sent to Stephon Cronin MD @ [facility]. Lauren, will you please fax records when order is signed? Demo in your box, thanks! * Telephone Encounter - Manda León RN - 02/17/2022 8:38 AM EST PSS: Please set pt up with referral to her preferred mental health director. Thank you. Manda León RN * Telephone Encounter - Manda León RN - 02/16/2022 1:28 PM EST Received call from pt stating Dr Salas told her to see mental health director but their office needs a referral. ZACH: Order pending, please review and sign. Manda León RN documented in this encounterMercy Health West Hospital01-09-2023 History of Present illness Narrative* Meena Grissom MD - 02/13/2022 8:28 PM EST Discussed with scheduling, appointment will be rescheduled. Patient logged in late- had technical issues with Zoom. 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 Fuentes Amaral MD, CPE Hematology and Oncology Services Provided at: [place], [place] CC: Cas Dowell documented in this encounterMercy Health West Hospital12-28-2022 Miscellaneous Notes* Telephone Encounter - Fanny Green LPN - 02/01/2022 10:42 AM EST Images from the original note were not included. documented in this encounterMercy Health West Hospital12-19-2022 Hospital Discharge instructions Patient Education 01/23/2022 13:55:42 EU - Cystoscopy with Urethral Dilation Discharge Instructions (Custom) Cystoscopy with Urethral Dilation Voiding after the procedure: there may be some pain, urethral bleeding, burning, urgency, frequencyand blood tinged urine following the procedure. These [...] Up Care 12/22/2021 14:21:18 With:LORAINE BURNHAM Address: [address] [place] [address] [facility] (1) When:6 weeks Comments:Call for followup appointment in about six weeks. As discussed, PONCE Hargrove can further follow upon the left kidney abnormality noted on the kidney ultrasound. 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 [facility]12-12-2022 History of Present illness Narrative* PONCE Chi-Dario - 01/16/2022 9:00 AM EST Headache Center - Follow up Virtual Visit During this COVID-19 pandemic, patient's headache clinic evaluation was scheduled as a virtual visit using the following platform Zoom - patient currently located in [facility] Marc was identified by name and and [...] following up today virtually for migraines. Her neurologicalexamination is essentially normal at this visit. Minimal improvement on emgality and has experienced flu like symptoms after two of the injections. Will discontinue and replace with Ajov - she will wait until 11/10/21 to inject first dose. Does not wish to restart Botox PREEMPT Protocol at this timebut will consider. Will also consider aimovig or [...] 2 mL via nebulizer every 12 hours. Inhaleover 5-15 minutes^Disp: 120 mL^Rfl: 5 SITagliptin (JANUVIA) [...] 225 mg/1.5 mL (AJOVY)^Inject 1.5 mL subcutaneously onceevery month. Do not shake.^Disp: 1.5 mL^Rfl: 11 UBRELVY 100 mg tablet^TAKE 1 TABLET BY MOUTH AT ONSET OF MIGRAINE. MAY REPEAT IN 2 HOURS NEEDED.MAX 2 TABLET IN 24 HOURS^Disp: ^Rfl: baclofen [...] needed. Nomore than 1 dose in 24 hours.^Disp: 8 [...] did not have a botox injection at mylast visit PRN medication usage in the last [...] thrombosis. Unremarkable MRA brain and MRA neck. Laboratory Engineer: ROBER Transcribe Date/Time: Mar 31 2016 2:40P [...] change which could potentially contribute to headache. Laboratory Engineer: ROBER Transcribe Date/Time: Jun 27 2021 3:07P [...] spontaneous and fluent without dysarthria. 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 Attention span and concentration are excellent. [...] regimen. Does not wish to make changes today.Labs are up to date. Patient verbalized understanding and agreed to treatment plan. She will followup in 3 months or sooner or later [...] require high frequency use which can lead toMedication Overuse Headache: Analgesic Butalbital/acetaminophen/caffeine (Fioricet) Anti-Migraine Rizatriptan (Maxalt) Sumatriptan (Imitrex, Sumavel) GEPANTS Ubrogepant (Ubrelvy) Rimegepant (Nurtec) Leana Tran has been previously approved for an Oral Calcitonin Gene- Related Peptide Receptor Antagonist (GEPANT) Rimegepant for the treatment of acute migraine. The patient has demonstrated thefollowing: Provider attests patient has had a positive [...] require high frequency use which can lead toMedication Overuse Headache: Analgesic Butalbital/acetaminophen/caffeine (Fioricet) Anti-Migraine Rizatriptan [...] 10 minutes Bhargavi Ramesh PA-C Headache Section [facility] January 16, 2022 documented in this encounterMercy Health West Hospital11-28-2022 History of Present illness Narrative* Jenny Borden - 01/02/2022 4:23 AM EST Sleep Study Check-In Documentation Date: January 02, 2022 Name: Leana Tran Patient was accompanied by Self. Location: [place] Latex allergy: Yes Tape allergy: No Current medications were reviewed with the patient:Yes Sleep aid taken by patient for the sleep study: [place] of sleep aid: Not Applicable Procedure was [...] test results Jenny Borden documented in this encounterMercy Health West Hospital11-16-2022 Evaluation + Plan note Diagnostic Tests Pending * Urine Cytology ([facility]) 12/21/21 [facility] 11-16-2022 Hospital Discharge instructions Patient Education 2021 10:13:39 Hematuria, Adult Hematuria, Adult Hematuria is blood in the urine. Blood may be visible in the urine, or it may be identified with a test. This condition can be caused by infections of the bladder, urethra, kidney, or prostate. Otherpossible causes include: Kidney stones. Cancer of the [...] blood in your urine, even if it ispainless or the blood stops without treatment. Blood in the urine, when it happens and then stops and then happens again, can be a symptom of a very serious condition, including cancer. There is no pain in the initial stages of many urinary cancers. Follow these instructions at home: Medicines Take mvxn-trb-spuxyku and prescription medicines only as told by your health care provider. If you were prescribed an antibiotic medicine, take it as told by your health care provider. Do notstop taking the antibiotic even if you start [...] about any blood in your urine, even ifit is painless or the blood stops without treatment. Take djay-lcy-mgstwmp and prescription medicines only as told by your health care provider. Drink enough fluid to keep your urine clear or pale yellow. This information is not intended to replace advice given to you by your health care provider. Make sure you discuss any questions you have with your health care provider. Document Released: 01/22/2006 Document Revised: 06/18/2019 Document Reviewed: 02/24/2017 [employer] Patient Education 2020 [employer] Follow Up Care 11/28/2021 10:05:42 With:[facility] Address: [address] 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 Leana Dominick Tran's bleeding disorders panel through [employer] was non- diagnostic or negative for a pathogenic variant. 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 This is a common polymorphism in the general population present in ~10% of individuals of white ancestry and ~1/3 of those of South ancestry. This polymorphism is not expected to contribute to disease risk for the patient. Please see [email or web address] message for further discussion. CARINE Carrillo Licensed, Certified Genetic Counselor [facility] CC: Dr. Fuentes Craig documented in this encounterMercy Health West Hospital11-10-2022 History of Present illness Narrative* Keira Harper - 12/15/2021 7:41 AM EST ACTIGRAPHY DEVICE # [id number] Date shipped out 12/15/2021 [employer] MAIL OUT TRACKING NUMBER [phone] [id number] [employer] RETURN TRACKING NUMBER [phone] [id number], Amber documented in this encounterMercy Health West Hospital10-28-2022 History of Present illness Narrative* Ofelia Nelson - 12/02/2021 8:16 AM EDT UNIVERSAL PROTOCOL / SAFETY CHECKLIST Procedure to [...] Aspirin, Ceftin [Cefuroxime Axetil], Clindamycin, Erythromycin, Eucalyptus, Gatifloxacin,Lavender (Lavandula Angustifolia), Penicillin G Benzathine, Penicillins, Sulfa (Sulfonamide Antibiot ics), Vioxx [Rofecoxib], Froylan 28 [Drospirenone-Ethinyl Estradiol], Latex, and Levofloxacin Test done in consult with Dr. Una Oliver. Procedure Start Time: 829 Height 162.6 [...] Procedure Finish Time: 933 documented in this encounterMercy Health West Hospital10-27-2022 Miscellaneous Notes* Telephone Encounter - Lindsey Hassan RN - 12/01/2021 5:06 PM EDT Attempted to contact the patient. Left voice message. Filomena MARIE * Telephone Encounter - Lindsey Hassan RN - 12/01/2021 11:31 AM EDT ----- Message from Micheal Perez MD sent at 11/30/2021 8:33 PM EDT ----- Regarding: Event monitor results. Please call with results. Micheal Perez MD November 30, 2021 8:33 PM documented in this encounterMercy Health West Hospital10-14-2022 Instructions* Patient Instructions* Fuentse Amaral MD - 11/18/2021 2:09 PM EDT 1. RTC and Repeat exam in 3 months - no labs 2. Review platelet genetics on return. 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 Fuentes Amaral MD, CPE Hematology and Oncology Services Provided at: [place], [place] CC: Cas Dowell documented in this encounterMercy Health West Hospital10-12-2022 Instructions* Patient Instructions* Meena Grissom MD - 11/16/2021 1:41 PM [...] depending on your insurance coverage. Contact your [email or web address] company for new supplies as needed. Encouraged increased CPAP compliance -PAP titration polysomnogram requested to assess optimum PAP therapy for KATELIN -PAP nap procedure requested to help address mask interface issues To schedule your sleep study please call the [facility] at [phone]. The [phone] phone number will be answered by the [...] If you work rotating shifts, ask your crew manager to schedule a natural, clockwise rotation. This meansthat your new shift will have a start time that is later than your last shift. Plan ahead for a major change in a shift work schedule.Begin to alter your sleep time a few days inadvance. This will make it easier for your body to adjust. If possible, plan to take a 20-30 minute nap during a break in your shift to improve alertness without grogginess. Caffeine in moderation may also be helpful to improve alertness. A longer nap beforereporting for a carpentry supervisor is also beneficial. Exposure to bright light on the job can improve alertness during carpentry supervisor work. Arrange for someone to pick you up after a carpentry supervisor, or take a bus or cab [...] for insomnia. The cost is $40. Use www.Fanaticall which to access the [facility] website to purchase the program [...] want to contact your insurance company to checkcoverage before scheduling, please contact your insurance provider and give them the CPT code: 84125 You will be asked to wear the device on the hand that you do not write with (the non-dominant hand)all the time (24 hours per day) except for when you shower, bathe, swim, dive, or participate in contact sports that could potentially damage the device. Make sure the device is not tight or uncomfortable but it should not move around on your wrist. Please wear it the same way every time you put iton. Do not drop the device, submerge it [...] important to fill out the sleep journal foreach day you wear the monitor including the [...] sleep study appointment, you must return the deviceback in the pre-addressed envelope as soon as possible. If you reschedule your sleep study appointment to a later date you must return the device back to your next appointment. You will mail the actigraphy device back in the pre- addressed envelope.? You must return the device, sleep journal sheets,and any other supplies/materials that you were given, as the device needs to be used for other studies. You will be charged $500 for loss of the device if not received within 7 days from your return date. ? If you have any questions about your actigraphy device, please call the solar thermal technician at: [phone]( During Hours: 8am-4:30pm) ? -Discussed pathophysiology of Sleep paralysis, and possible triggering factors which include sleep deprivation, untreated obstructive sleep apnea. Other possible etiologies include circadian shift work,anxiety disorders and medications. - Follow up in 2 months documented in this encounterMercy Health West Hospital10-12-2022 Miscellaneous Notes* Telephone Encounter - Zuleyka Pacheco RN - 11/16/2021 1:04 PM EDT Images from the original note were not included. * Telephone Encounter - Zuleyka Pacheco RN - 11/16/2021 1:03 PM EDT Images from the original note were not included. documented in this encounterMercy Health West Hospital10-12-2022 History of Present illness Narrative* Meena Grissom MD - 11/16/2021 8:59 AM EDT Images from the original note were not included. [facility] New Patient Evaluation [...] on CPAP , her physician is at [facility]. Has a Resmed device, uses it [...] night, because of physical discomfort and the needto urinate. On weekends, she tends to stay [...] sleep: snoring, moving around a lot, frequent legmovements, and acting out dreams. Bruxism: Yes, possibly GERD or aspiration: Yes Waking up with heart pounding or racing: No Anxiety or rumination: Yes She reports having an urge to move the legs. The urge to move the legs is worse in the evening or nighttime than during the daytime. The urge to move the legs begins or worsens during periods of restor inactivity (e.g. lying or sitting). The urge [...] the time had an allergic reaction to anothermedicine. The patient reports having had the following: [...] or near accidents due to drowsy drivin Casey Sleepiness Scale 11/13/2021 Score 7 (No daytime [...] population = 50. Five points is a clinicallymeaningful difference.) 05/19/2021 08/11/2021 11/08/2021 Physical T-Score 32.4 34.9 39.8 Mental T-Score 33.8 33.8 31.3 PAST TREATMENTS: CPAP Prior RLS Medications (last 20 years) Some values may be hidden. Unless noted otherwise, only the newest values recorded on each date aredisplayed. RLS Medications rOPINIRole (REQUIP) 0.25 mg tablet Dose: Take 0.25 mg by mouth. (Patient taking differently:, Patient not taking as of 09/21/2021 3:37 PM) Starting date: 08/24/2021 Ending date: 10/19/2021 (Discontinued) Prior Insomnia Medications (last 20 years) Some values may be hidden. Unless noted otherwise, only the newest values recorded on each date aredisplayed. Insomnia Medications FLUoxetine (PROZAC) 20 mg capsule Dose: 40 mg DAILY Starting date: 01/30/2014 Ending date: 06/08/2016(Discontinued) LORazepam (ATIVAN) 0.5 mg Dose: 0.5 mg [...] (Discontinued) PRIOR SLEEP STUDIES: Sleep centre at [place] (report not available at time of consultation) [...] 2 mL via nebulizer every 12 hours. Inhaleover 5-15 minutes^Disp: 120 mL^Rfl: 5 SITagliptin (JANUVIA) [...] 225 mg/1.5 mL (AJOVY)^Inject 1.5 mL subcutaneously onceevery month. Do not shake.^Disp: 1.5 mL^Rfl: 11 UBRELVY 100 mg tablet^TAKE 1 TABLET BY MOUTH AT ONSET OF MIGRAINE. MAY REPEAT IN 2 HOURS NEEDED.MAX 2 TABLET IN 24 HOURS^Disp: ^Rfl: baclofen [...] needed. Nomore than 1 dose in 24 hours.^Disp: 8 [...] uncontrolled Hypertension Mother Heart Attack Mother First UT at age 51 Cardiomyopathy Mother at age [...] retrognathia absent. Overbite absent. High arched palate absent.Tongue scalloping/ridging absent. Uvula: nl Dentition: nl Neuro: [...] If you work rotating shifts, ask your crew manager to schedule a natural, clockwise rotation. This meansthat your new shift will have a start time that is later than your last shift. Plan ahead for a major change in a shift work schedule.Begin to alter your sleep time a few days inadvance. This will make it easier for your body to adjust. If possible, plan to take a 20-30 minute nap during a break in your shift to improve alertness without grogginess. Caffeine in moderation may also be helpful to improve alertness. A longer nap beforereporting for a carpentry supervisor is also beneficial. Exposure to bright light on the job can improve alertness during carpentry supervisor work. Arrange for someone to pick you up after a carpentry supervisor, or take a bus or cab [...] for insomnia. The cost is $40. Use www.Fanaticall which to access the [facility] website to purchase the program [...] sense of time), get out of bed anddo something relaxing or boring (reading, listening to [...] which included preparing to see the patient, pfrk-qr-abkf patient care, performing a medically appropriate examination, counseling and educating the patient/family/caregiver and ordering medications/devices. documented in this encounterMercy Health West Hospital10-11-2022 Miscellaneous Notes* Telephone Encounter - Fanny Green LPN - 11/15/2021 3:55 PM EDT Images from the original note were not included. documented in this encounterMercy Health West Hospital10-08-2022 History of Present illness Narrative* Fuentes Amaral MD - 11/12/2021 7:46 AM EDT AMBULATORY TELEPHONE VISIT Leana Tran has consented to this telephone encounter. Persons Present: patient Chief Complaint/Reason: platelet dysfunction HPI: Leana is 35 yo and is having genetic testing done to ascertain a genetic platelet disorder. However, she had a Mammogram recently that was concerning for lymphadenopathy. I was unable to get thereport myself and so she gave me some [...] minutes Fuentes Amaral MD documented in this encounterMercy Health West Hospital10-03-2022 Miscellaneous Notes* Telephone Encounter - Landen Mahmood APRN.FOOD EDITOR - 11/07/2021 4:19 PM EDT [facility] Call to them inquiring about any additional information they may need. Landen Mahmood APRN.[employer] documented in this encounterMercy Health West Hospital10-03-2022 Miscellaneous Notes* Telephone Encounter - Lindsey Hassan RN - 11/07/2021 3:29 PM EDT Contacted [employer]. Order has not been received. Discussed with Javier from Arrhythmia lab. Order is currently being processed. Filomena RN documented in this encounterMercy Health West Hospital09-29-2022 Instructions* Patient Instructions* Fuentes Amaral MD - 11/03/2021 11:38 AM EDT 1. Need Mammogram results from [place] 2. Proceed with genetic testing for platelet disorder 3. Call next week to review mammogram results documented in this encounterMercy Health West Hospital09-29-2022 History of Present illness Narrative* Fuentes Amaral MD - 11/03/2021 11:23 AM EDT Images from the original note [...] workup. PLAN: 1. Need Mammogram results from [facility] 2. Proceed with genetic testing for platelet [...] which included preparing to see the patient, [id number] patient care, completing clinical documentation, obtaining and/or reviewing separately obtained history, performing a medically appropriate examination, counseling and educating the pat ient/family/caregiver, ordering medications, tests, or procedures, independently interpreting results (not separately reported) and communicating results to the patient/family/caregiver. Fuentes Amaral MD, [facility] Hematology and Oncology Services Provided at: [place], [place] CC: Cas Dowell documented in this encounterMercy Health West Hospital09-25-2022 Miscellaneous Notes* Telephone Encounter - Fuentes Amaral MD - 10/30/2021 9:09 AM EDT I don't think I need labs for her. * Telephone Encounter - Sharon Peterson Ma - 10/27/2021 3:21 PM EDT If needed, please add lab orders for appointment on 11/03/21. Sharon Peterson Ma documented in this encounterMercy Health West Hospital09-19-2022 History of Present illness Narrative* Henny Rushing MD - 10/24/2021 11:30 AM EDT VIRTUAL VISIT PROGRESS NOTE This is a virtual visit using [employer] video visit. It required patient-provider interaction for themedical decision making as documented below. Chief complaint: [...] 2 months. Immunodeficiency evaluation performed by an demo event specialist in [place] showed protective strep pneumo titers after vaccination [...] describes smells as initially causing lightheadedness, inability tocatch her breath, and then choking sensation in her throat- she is unable to breath at this point. Aside from strong smells, no consistent food/medication trigger ER visit on 06/04/21- presented with difficulty breathing, swallowing, pruritis, wheezing. Took EpiPen and Benadryl prior to arrival. No abnormalities noted on physical exam at the ER Last December saw an demo event specialist- skin testing was negative to environmental allergies [...] well. She does not like taking Albuterol becauseit makes her heart race. Asthma is managed by her family medicine physician and junior programmer analyst. Has had 0 ER, hospitalization and ICU admissions for asthma since the last visit. Does not recall last use of Prednisone. PFTs recently performed in 03/2021. Has a hx of KATELIN on CPAP.Influenza and Pneumovax up to date Adverse food [...] uncontrolled Hypertension Mother Heart Attack Mother First UT at age 51 Cardiomyopathy Mother at age [...] HOURS NEEDED.MAX 2 TABLET IN 24 HOURS baclofen (LIORESAL) [...] Nomore than 1 dose in 24 hours. prazosin [...] or contact dermatitis- advise follow-up with local Leather Production Worker Allergic rhinitis, unspecified seasonality, unspecified trigger Comment/Plan: Well-controlled, continue Flonase and oral antihistamine Moderate persistent asthma without complication Comment/Plan: Controlled, continue follow-up with Pulmonary and Covid-19 [facility] Henny Rushing MD documented in this encounterMercy Health West Hospital09-15-2022 History of Present illness Narrative* Micheal Perez MD - 10/20/2021 8:00 AM EDT [facility] [place] Department of Cardiac Surgery VIRTUAL VIDEO VISIT [...] cardiology in July 2021, HR was 44 onEKG, had echo, was given a 24 hour [...] uncontrolled Hypertension Mother Heart Attack Mother First UT at age 51 Cardiomyopathy Mother at age [...] 225 mg/1.5 mL (AJOVY)^Inject 1.5 mL subcutaneously onceevery month. Do not shake.^Disp: 1 mL^Rfl: 11 UBRELVY 100 mg tablet^TAKE 1 TABLET BY MOUTH AT ONSET OF MIGRAINE. MAY REPEAT IN 2 HOURS NEEDED.MAX 2 TABLET IN 24 HOURS^Disp: ^Rfl: baclofen [...] needed. Nomore than 1 dose in 24 hours.^Disp: 8 [...] population = 50. Five points is a clinicallymeaningful difference.) 08/11/2021 05/19/2021 02/25/2021 Physical T-Score 34.9 32.4 37.4 Mental T-Score 33.8 33.8 28.4 Haley Warren RN October 20, 2021 7:40 AM EP STAFF ADDENDUM: I have reviewed the above information and examined the patient and confirm the above with the following additions/modifications. HISTORY OF PRESENT ILLNESS: Ms. Tran is a 35-year-old female with a history of hypothyroidism, asthma, migraines, irritablebowel syndrome, obesity, sleep apnea and deconditioning. She has also had COVID last year. She alsohas multiple psychological issues like anxiety, depression and [...] denies any history of syncope but tends tohave more symptoms of background headache previously had [...] 5:26 PM This note was generated using [employer] voice recognition system. Please excuse any typographical errors. I spent 30 minutes with the patient; greater than 50% of the time was spent in counselling and co-ordinating the care based on my impression and plan above. documented in this encounterMercy Health West Hospital09-14-2022 Instructions* Patient Instructions* Bhargavi Ramesh PA-C - 10/19/2021 2:31 PM EDT Consider restart Botox PREEMPT Protocol Discontinue Emgality Start Ajovy - once monthly - wait until 11/10 to inject the first dose [facility]: [phone] Consider aimovig or vyepti Please follow up in 3 months or sooner if needed documented in this encounterMercy Health West Hospital09-14-2022 History of Present illness Narrative* Bhargavi Ramesh PA-C - 10/19/2021 2:30 PM EDT Headache Center - Follow up Virtual Visit [...] following up today virtually for migraines. Her neurologicalexamination is essentially normal at this visit. Has [...] as first line rescue as tylenol is nevereffective. Labs are up to date. Patient verbalized understanding and agreed to treatment plan. She will follow up for botox or sooner if needed. PLAN: 1. Continue Botox PREEMPT Protocol, zonisamide 100mg, lamictal (with an outside department), zoloft(with an outside department) 2. Continue nurtec as [...] 2 HOURS NEEDED.MAX 2 TABLET IN 24 HOURS^Disp: ^Rfl: baclofen [...] fluticasone (FLONASE) 50 mcg/actuation nasal spray^Use 1 [place] in each nostril twice daily.^Disp: 3Each^Rfl: 11 zonisamide (ZONEGRAN) 100 mg capsule^Take 1 capsule by mouth once daily.^Disp: 90 capsule^Rfl: 3 rimegepant (NURTEC ODT) 75 mg disintegrating tablet^Take 1 tablet by mouth once daily as needed. Nomore than 1 dose in 24 hours.^Disp: 8 [...] ^Rfl: fremanezumab-vfrm subcutaneus auto-injector 225 mg/1.5 mL (AJOVAfraxis)^Inject 1.5 mL subcutaneously onceevery month. Do not shake.^Disp: 1 mL^Rfl: 11 [...] thrombosis. Unremarkable MRA brain and MRA neck. Laboratory [facility] Transcribe Date/Time: Mar 31 2016 [...] change which could potentially contribute to headache. Laboratory Engineer: [facility] Transcribe Date/Time: Jun 27 2021 3:07P [...] Abs Lymph 1.00 - 4.00 k/uL 1.45 Tyrrell% % 4.4 Abs Tyrrell <0.87 k/uL 0.30 Eosin% % 2.5 Abs [...] spontaneous and fluent without dysarthria. 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 Attention span and concentration are good. [...] up today virtually for migraines. Her neurological examinationis essentially normal at this visit. Minimal improvement [...] precert for Calcitonin Gene Related Peptide Monoclonal Antibody,Fremanezumab. 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 Do not shake. Headache education was [...] 20 minutes Bhargavi Ramesh PA-C Headache Section [facility] October 19, 2021 documented in this encounterMercy Health West Hospital09-09-2022 History of Present illness Narrative* Judith Valdes PSYD - 10/14/2021 8:59 AM EDT [facility] Psychology Progress Note Billing codes: Keisha PSYCHOLOGY: FOLLOW-UP APPOINTMENT PROGRESS NOTE- Virtual Visit Due to the federal emergency declaration and the need for ongoing mental health services, the following visit was completed virtually and informed consent obtained orally to reduce the risk of COVID-19 exposure. Oral consent to services related to virtual visits was obtained after information was sent via War[employer] or read to patient if Apartment Addahart not available. Leana Tran 10/14/2021 [id number] PROVIDER: Judith Valdes PSYD CPT Code: 6521661 Virtual PSYTX PT &/FAMILY 45 MINS Time [...] HOURS NEEDED.MAX 2 TABLET IN 24 HOURS baclofen (LIORESAL) 10 mg tablet Take 10-20 mg by mouth at bedtime as needed. rOPINIRole (REQUIP) 0.25 mg tablet Take 0.25 mg by mouth. (Patient not taking: Reported on 09/21/2021) galcanezumab-gnlm (EMGALITY SYRINGE) 120 mg/mL syringe Inject 2 mL subcutaneously once every month.Inject two pens the first month as a loading dose. Do not shake. galcanezumab-gnlm (EMGALITY SYRINGE) 120 mg/mL syringe Inject 1 mL subcutaneously once every month.Do not shake. famotidine (PEPCID) 40 mg tablet [...] Nomore than 1 dose in 24 hours. prazosin [...] Valdes Psy.D. Associate Staff, [facility] documented in this encounterMercy Health West Hospital09-07-2022 History of Present illness Narrative* Ruth Villaseñor MD - 10/12/2021 2:25 PM EDT Images from the original note were not included. Rheumatology Outpatient Clinic Date of Service: 10/12/2021 Patient: Leana Tran Medical Record: [id number] Primary Care Physician: Cas Dowell MD Referring [...] for LN yet. Awaiting follow up in [facility] clinic. Discussed blood test results and [...] uncontrolled Hypertension Mother Heart Attack Mother First UT at age 51 Cardiomyopathy Mother at age [...] syringe Inject 2 mL subcutaneously once every month.Inject two pens the first month as a loading dose. Do not shake. galcanezumab-gnlm (EMGALITY SYRINGE) 120 mg/mL syringe Inject 1 mL subcutaneously once every month.Do not shake. famotidine (PEPCID) 40 mg tablet Take 40 mg by mouth as needed. cetirizine (ZYRTEC) 10 mg tablet Take 10 mg by mouth as needed. diphenhydrAMINE (BENADRYL) 25 mg tablet Take 50 mg by mouth every 6 hours as needed. LORazepam (ATIVAN) 0.5 mg Take 0.5 mg by mouth twice daily as needed. fluticasone (FLONASE) 50 mcg/actuation nasal spray Use 1 [place] in each nostril twice daily. zonisamide (ZONEGRAN) 100 mg capsule Take 1 capsule by mouth once daily. rimegepant (NURTEC ODT) 75 mg disintegrating tablet Take 1 tablet by mouth once daily as needed. Nomore than 1 dose in 24 hours. prazosin [...] AM (Final result) Impression: IMPRESSION: See Result. Laboratory Engineer: ROBER Transcribe Date/Time: Sep 30 2021 2:15P... [...] including regular graded aerobic exercise, improving sleep hygieneand quality, continuing with healthy diet, Vit D supplementation, Physical therapy and aquatic pooltherapy. There are some reports on benefits from [...] In certain cases, a referral to a utilization specialist may be required, in patients who [...] Ruth Villaseñor MD Rheumatology documented in this encounterMer[facility]08-26-2022 History of Present illness Narrative* Magda Gil - 09/30/2021 10:00 AM EDT Radiology Service Progress Note PATIENT NAME: Leana Tran DATE OF SERVICE: September 30, 2021 TIME: 9:53 AM PATIENT IDENTITY VERIFICATION COMPLETED USING TWO (2) IDENTIFIERS: Name and Date of confirmedby patient verbally. FALL SCREENING: Has the patient [...] 30, 2021 9:53 AM documented in this encounterMercy Health [facility] Hospital08-23-2022 History of Present illness Narrative* Yanira Bryson RRT - 09/27/2021 8:01 AM EDT PULM FUNCTION SMARTBLOCK: Provider: Landen Mahmood APRN.FOOD EDITOR Assisting Tech: Yanira Bryson RRT Spirometry w/BD: 1 DLCO: 1 LV - Box: 1 6 MW: 1 documented in this encounterMercy Health West Hospital08-18-2022 Miscellaneous Notes* Telephone Encounter - Kim Stark RN - 09/22/2021 4:49 PM EDT Spoke with provider through secure chat-due to triage, worsening symptoms, and time of day sent patient to ED Patient stated that will head to [facility] shortly to be evaluated. Thank you, Kari * Telephone Encounter - Kim Stark RN - 09/22/2021 4:19 PM EDT Patient called back into office. Triaged for [...] after follow up . Thank you, Kari * Telephone Encounter - Kim Stark RN - 09/22/2021 4:06 PM EDT Tried home.. left message to call office. * Telephone Encounter - Landen Mahmood APRN.CNP - 09/22/2021 4:02 PM EDT Please triage for PE/DVT due to elevated D dimer level. Please also inform her that her cardiolipin is in the intermediate range. We will recheck this after our follow up visit to show downward trend. Landen Mahmood APRN.MACY documented in this encounterMercy Health West Hospital08-17-2022 History of Present illness Narrative* Ruth Villaseñor MD - 09/21/2021 3:30 PM EDT Images from the original note were not included. Rheumatology Outpatient Clinic Date of Service: 09/21/2021 Patient: Leana Tran Medical Record: [id number] Primary Care Physician: Cas Dowell MD Referring Provider: SELF Last [facility] Chief complaint: Consult (Patient states she was at [facility] on 09/19/21, seen Landen Mahmood APRN. She states her lymph nodes were swollen at that visit. Patient states had COVID 10/2020. She states her bones feel like someone is scraping them. /Patient states she will pours out sweat or is freezingsymptoms started in May/June and getting a lot [...] of Consult (Patient states she was at [facility] on 09/19/21, seen Landen Mahmood APRN. [...] uncontrolled Hypertension Mother Heart Attack Mother First UT at age 51 Cardiomyopathy Mother at age [...] syringe Inject 2 mL subcutaneously once every month.Inject two pens the first month as a loading dose. Do not shake. galcanezumab-gnlm (EMGALITY SYRINGE) 120 mg/mL syringe Inject 1 mL subcutaneously once every month.Do not shake. famotidine (PEPCID) 40 mg tablet Take 40 mg by mouth as needed. cetirizine (ZYRTEC) 10 mg tablet Take 10 mg by mouth as needed. diphenhydrAMINE (BENADRYL) 25 mg tablet Take 50 mg by mouth every 6 hours as needed. LORazepam (ATIVAN) 0.5 mg Take 0.5 mg by mouth twice daily as needed. fluticasone (FLONASE) 50 mcg/actuation nasal spray Use 1 [place] in each nostril twice daily. zonisamide (ZONEGRAN) 100 mg capsule Take 1 capsule by mouth once daily. rimegepant (NURTEC ODT) 75 mg disintegrating tablet Take 1 tablet by mouth once daily as needed. Nomore than 1 dose in 24 hours. prazosin [...] repeat CBC, CMP, C3, C4 ordered at [facility]. To evaluate for causes that could contribute to her pain, I will follow CBC with diff, comprehensive metabolic panel,TSH, 25-hydroxy vitamin D, vitamin B12 levels, ordered at [facility]. Additionally, because sleep apnea can cause or worsen pain, recommendthat to use CPAP daily. I discussed regarding nature of chronic pain Discussed that this is not an inflammatory rheumatologic disease. It is a disorder that causes widespread muscle pain and tenderness, typically is associated with fatigue and sleep disturbances. Discussed recommended management including regular graded aerobic exercise, improving sleep hygieneand quality, continuing with healthy diet, Vit D supplementation, Physical therapy and aquatic pooltherapy. There are some reports on benefits from [...] disease/rheumatologic disease and would recommend PCP to manageher chronic pain. In certain cases, a referral to a utilization specialist may be required, in patients who [...] which included preparing to see the patient, [id number] patient care, completing clinical documentation, obtaining and/or reviewing separately obtained history, performing a medically appropriate examination, counseling and educating the pat ient/family/caregiver, and ordering medications, tests, or procedures. Medical Decision Making: Problems: High: Chronic illness with severe change Data: Unique test result(s) reviewed: 3+ Unique test(s) ordered: 1 Independent interpretation of test from other physician/QHCP Medical Decision Making Level: 5 - High Ruth Villaseñor MD Rheumatology Date: September 21, 2021 Time: 5:08 PM documented in this encounterMercy [facility] Hospital08-15-2022 Miscellaneous Notes* Telephone Encounter - Landen Mahmood APRN.CNP - 09/19/2021 4:59 PM EDT Please help schedule fu visit in 4-6 weeks and testing please. Landen Mahmood APRN.CNP documented in this encounterMercy Health West Hospital08-15-2022 Instructions* Patient Instructions* Landen Mahmood APRN.CNP - 09/19/2021 3:10 PM EDT [facility]! The 'COV' represents SARS-CoV-2, also known as COVID-19. Our clinic's mission is to assess and guide individuals who are experiencing long-term effects of COVID-19 to state of the art care paths tailored to fit each person. You just had your initial visit with the [facility]! Next, you will be undergoing additional tests to further assess your current symptoms. Once you have these tests completed, you will have another visit to review these results. We will then direct you down the appropriate care path with a specialist for further treatment based on those results and your current symptoms. - [facility] Team documented in this encounterMercy Health West Hospital08-15-2022 History of Present illness Narrative* Landen Mahmood APRN.CNP - 09/19/2021 2:07 PM EDT Images from the original note were not included. COVID [facility] Initial Evaluation Leana Tran presents to Re[facility] [...] 3 hours. This may occur when her bloodpressure is either too high or too low . Palpitations -She has episodes where she feels her heart is irregular. She will have racing heart beats followed 1-2 slow beats. These patterns will change randomly. She states that in the first weekof june, she woke up with a bad chest pain. Following this, her heart rate has been in a more normalrange. It is not in the 30s any [...] states that she has fallen and does notremember how. She does not think she blacked [...] she is having increased diarrhea. She has increasedconstipation. She does not follow with gi Headaches [...] She does not have strong support at home,and feels that many people do not listen [...] syringe Inject 2 mL subcutaneously once every month.Inject two pens the first month as a loading dose. Do not shake. galcanezumab-gnlm (EMGALITY SYRINGE) 120 mg/mL syringe Inject 1 mL subcutaneously once every month.Do not shake. famotidine (PEPCID) 40 mg tablet Take 40 mg by mouth as needed. cetirizine (ZYRTEC) 10 mg tablet Take 10 mg by mouth as needed. diphenhydrAMINE (BENADRYL) 25 mg tablet Take 50 mg by mouth every 6 hours as needed. LORazepam (ATIVAN) 0.5 mg Take 0.5 mg by mouth twice daily as needed. fluticasone (FLONASE) 50 mcg/actuation nasal spray Use 1 [place] in each nostril twice daily. zonisamide (ZONEGRAN) 100 mg capsule Take 1 capsule by mouth once daily. rimegepant (NURTEC ODT) 75 mg disintegrating tablet Take 1 tablet by mouth once daily as needed. Nomore than 1 dose in 24 hours. prazosin [...] which included preparing to see the patient, [id number] patient care, completing clinical documentation, obtaining and/or reviewing separately obtained history, performing a medically appropriate examination, counseling and educating the pat ient/family/caregiver, ordering medications, tests, or procedures, communicating with other HCPs (not separately reported), independently interpreting results (not separately reported), communicatingresults to the patient/family/caregiver, and care coordination (not separately reported). Landen Mahmood APRN.CNP September 19, 2021 2:07 PM documented in this encounterMercy Health West Hospital08-12-2022 History of Present illness Narrative* Judith Valdes PSYD - 09/16/2021 8:59 AM EDT [facility] Psychology Progress Note Billing codes: Keisha PSYCHOLOGY: FOLLOW-UP APPOINTMENT PROGRESS NOTE- Virtual Visit Due to the federal emergency declaration and the need for ongoing mental health services, the following visit was completed virtually and informed consent obtained orally to reduce the risk of COVID-19 exposure. Oral consent to services related to virtual visits was obtained after information was sent via [employer] or read to patient if MyChart not available. Leana Tran 09/16/2021 [id number] PROVIDER: Judith Valdes PSYD CPT Code: 9435091 Virtual PSYTX PT &/FAMILY 45 MINS Time spent doing therapy with patient: 8:59 AM - 9:39 AM Parties Present: Patient Interventions: Cognitive Behavioral Stress Management Relaxation training MENTAL STATUS: Mood: anxious Affect: mood-congruent Thoughts/Associations: goal directed Suicidal/Homicidal Ideation: None expressed or evidenced MEDICATIONS: Per medical record: Current Outpatient Medications Medication Sig galcanezumab-gnlm (EMGALITY SYRINGE) 120 mg/mL syringe Inject 2 mL subcutaneously once every month.Inject two pens the first month as a loading dose. Do not shake. galcanezumab-gnlm (EMGALITY SYRINGE) 120 mg/mL syringe Inject 1 mL subcutaneously once every month.Do not shake. famotidine (PEPCID) 40 mg tablet Take 40 mg by mouth as needed. cetirizine (ZYRTEC) 10 mg tablet Take 10 mg by mouth as needed. diphenhydrAMINE (BENADRYL) 25 mg tablet Take 50 mg by mouth every 6 hours as needed. LORazepam (ATIVAN) 0.5 mg Take 0.5 mg by mouth twice daily as needed. fluticasone (FLONASE) 50 mcg/actuation nasal spray Use 1 [place] in each nostril twice daily. zonisamide (ZONEGRAN) 100 mg capsule Take 1 capsule by mouth once daily. rimegepant (NURTEC ODT) 75 mg disintegrating tablet Take 1 tablet by mouth once daily as needed. Nomore than 1 dose in 24 hours. prazosin [...] providing psychoeducation on the autonomic nervous system, itsrelationship with functional symptoms, and how relaxation may assist in regulating the stress response. Discussed different types of relaxation techniques such as diaphragmatic breathing, progressivemuscle relaxation, guided imagery. Patient notes that she [...] Valdes Psy.D. Associate Staff, [facility] documented in this encounterMercy Health [facility] Hospital08-01-2022 Hospital Discharge instructions* Discharge Instructions* Christine Abraham DO - 09/05/2021 4:38 PM EDT Please stop the Valtrex and Levaquin. Contact your primary care provider tomorrow to discuss if there are any other medications they would like her to be on. You can take Benadryl as needed for itching. * Attachments The following attachments cannot be sent through Care Everywhere. * Allergic Reaction (Filipino) documented in this encounterBON Thin [employer]SA Work Phone: [phone] 982-880707-26-2022 Instructions* Patient Instructions* Ayaka Bright MD - 08/30/2021 12:03 PM EDT [facility] to [facility] clinic appt Our staff will schedule in our LONG COVID SMA. Start the following supplements Vitamin D 4000 units daily Magnesium oxide 400 mg daily Curcumin (brand Meriva): 500 mg twice a day [place] 3 (fish oil) capsules 2000 mg daily (purchase a brand with high EPA and DHA concentrations) NAC (N-acetyl cystine) 600 mg twice per day Trial of gluten restricted diet. We will schedule you with our nutritionis and holistic psychotherapy See me after shared group appointments are over documented in this encounterMercy Health West Hospital07-26-2022 History of Present illness Narrative* Ayaka Bright MD - 08/30/2021 11:12 AM EDT Wellness Consultation This visit was conducted as a virtual visit. This note was generated with voice recognition software and may contain errors, including spelling,grammar, syntax and misrecognition of what was dictated, [...] Hospitalized at ICU, transferred to another hospital [facility]. Discharged. Not intubated Since then: Body does [...] for headaches Background: 2 hours away in [facility] Relationships and Social Network: , supportive [...] syringe Inject 2 mL subcutaneously once every month.Inject two pens the first month as a [...] (FLONASE) 50 mcg/actuation nasal spray Use 1 [place] in each nostril twice daily. zonisamide (ZONEGRAN) 100 mg capsule Take 1 capsule by mouth once daily. rimegepant (NURTEC ODT) 75 mg disintegrating tablet Take 1 tablet by mouth once daily as needed. Nomore than 1 dose in 24 hours. prazosin [...] uncontrolled Hypertension Mother Heart Attack Mother First UT at age 51 Cardiomyopathy Mother at age [...] loss, malaise, anorexia, headache, swollen glands, chest pain,palpitations, SOB, abdominal pain, nausea, vomiting, constipation, diarrhea, [...] Meriva): 500 mg twice a day [place] 3 (fish oil) capsules 2000 mg daily [...] which included preparing to see the patient, [id number]-[id number] patient care, completing clinical documentation, obtaining and/or reviewing separately obtained history, performing a medically appropriate examination, counseling and educating the pat ient/family/caregiver, ordering medications, tests, or procedures and communicating with other HCPs(not separately reported). documented in this encounterMercy Health West Hospital07-19-2022 Miscellaneous Notes* Telephone Encounter - Shelbie Umaña PA-C - 08/23/2021 4:11 PM EDT Images from the original note were not included. MD Shelbie Miller III, PA-C Please inform patient that there is no evidence of a hernia on US. I called patient and advised of negative US as mentioned above. [facility]. I [...] as had discussed in office, but the wordingis confusing as they also refer to a defect, and diastasis is a thinning of the muscle and not adefect. I advised if patient would like to drop off a disc of images, we could review them for clarification, although US is also supporting no hernia. Patient agreeable and states she will drop of adisc to Sudha office for review. I advised she call and let us know when she drops off the disc so that we make sure it gets reviewed in a timely manner. Patient voiced understanding and appreciative. documented in this encounterMercy Health West Hospital07-19-2022 Instructions* Patient Instructions* Peter Knight APRN.CNP - 08/23/2021 11:13 AM EDT Please call to arrange for the following tests: Consult to wellness clinic documented in this encounterMercy Health West Hospital07-19-2022 History of Present illness Narrative* Peter Knight APRN.CNP - 08/23/2021 11:00 AM EDT Images from the original note were not included. [facility] Follow Up / Established Virtual Visit I received consent from the patient to perform the visit as a virtual encounter. Individuals who were included in, or assisted with the encounter were: Leana Tran Peter Knight APRN.CNP Chief Complaint/Issues: Leana Tran is a 35 year old right-handed female seen in the [facility] for: 1. 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 She was diagnosed with SARS-CoV-2 on 10/27/2020, after which she developed fatigue, headaches, brain fog, heart racing, decreasedactivity tolerance, paresthesia, GI dysmotility, anxiety, and depression. She was hospitalized for the aforementioned symptoms. She reports HR in 30-40s and BP 160/100. She was given atropine to increase her HR, which brought her HR up to 60. She was evaluated by mental health director and there was mention of placing a pacemaker, which has yet to come to fruition. She also reported history of intermittentleg weakness dating back to adolescence. Primary concerns were intermittent diplopodia and volatileBP ranging from 70/40-160/100 - Autonomic Reflex Test and Tilt Table Test on 06/14/2021 are normal. Follow up on 06/27/2021, reported worst headache of her life, different from past headaches, sent toED for evaluation. Previous plan 1. ED evaluation [...] & Plan 08/23/2021 - Neuromuscular, Peter Knight APRN.FOOD EDITOR ASSESSMENT Leana is seen today for established [...] syringe Inject 2 mL subcutaneously once every month.Inject two pens the first month as a [...] (FLONASE) 50 mcg/actuation nasal spray Use 1 [place] in each nostril twice daily. zonisamide (ZONEGRAN) 100 mg capsule Take 1 capsule by mouth once daily. rimegepant (NURTEC ODT) 75 mg disintegrating tablet Take 1 tablet by mouth once daily as needed. Nomore than 1 dose in 24 hours. prazosin [...] uncontrolled Hypertension Mother Heart Attack Mother First [place] at age 51 Cardiomyopathy Mother at age [...] which included preparing to see the patient, [id number] patient care, completing clinical documentation, obtaining and/or reviewing separately obtained history, performing a medically appropriate examination, counseling and educating the pat ient/family/caregiver and ordering medications, tests, or procedures. Peter [...] ensuing treatment plans will be released via [employer] and discussed via [employer] or during your follow-up appointment. As a national referral center for syncope, autonomic dysfunction, general neurology, headache care,neuromuscular disease, and other related conditions, we do not have the resource of time or staffing to address inquiries for accommodations. As such, we do not provide or complete requests for work a ccommodations, FMLA, disability, or other such forms. We recommend seeking guidance through your primary care provider for these requests. We are happy to provide our office notes from your visits and other tests or evaluations performed through our clinic, which can be made available upon request to assist you with this process. documented in this encounterMercy Health West Hospital07-14-2022 History of Present illness Narrative* Mike Zayas MD - 08/18/2021 12:26 PM EDT Ambulatory Blood Pressure Monitoring (ABPM) Report Patient: Leana Tran : 1985 Referring Physician: Sai Perez MD Date of Recordin08/12/21 Patient s current medications as in EPIC at time of report: galcanezumab-gnlm (EMGALITY SYRINGE) 120 mg/mL syringe Inject 2 mL subcutaneously once every month.Inject two pens the first month as a [...] (FLONASE) 50 mcg/actuation nasal spray Use 1 [place] in each nostril twice daily. zonisamide (ZONEGRAN) 100 mg capsule Take 1 capsule by mouth once daily. rimegepant (NURTEC ODT) 75 mg disintegrating tablet Take 1 tablet by mouth once daily as needed. Nomore than 1 dose in 24 hours. prazosin [...] Pressure in Adults: A Report of the [place] [employer]/[place] [employer] Association Task Force on Clinical Practice Guidelines. Hypertension. 2018 Koffi;71(6):x94-i427. Epub 2016Dec 18. The ABPM should be [...] all individual readings will be scanned into [employer], which can be reviewed under scanned documents. Mike Zayas MD documented in this encounterMercy Health West Hospital07-13-2022 Miscellaneous Notes* Telephone Encounter - Bhargavi Ramesh PA-C - 08/17/2021 9:57 AM EDT Appeal letter written. Please fax to insurance. Bhargavi Ramesh PA-C August 17, 2021 10:01 AM * Telephone Encounter - Jenni Rocha RN - 08/16/2021 10:14 AM EDT Images from the original note were not included. Ambulatory Pharmacy Prior Authorization Note Provider Intervention Required?: No- Pharmacy completed on your behalf. Drug: Emgality 120MG/ML syringes (migraine) Cover My Meds Appiah: [id number] Determination: Denied PA Denied because: Medical necessity not met Prior Authorization/Case #: [id number] Prior Authorization Expiration: n/a Time to PA Submission in CMM: 15 min Time to PA Determination in CMM: Same day Additional Information: Full letter scanned into chart for reference, please review letter for fulldetails. Next Steps- Please notify the patient of Denial. Your office can submit appeal if you would like to pursue. If overturned, please feel free to send new eRx to [facility] at that time. No further action by [facility] for now and existing order to be profiled. Jenni Rocha RN [facility] P: , F: For questions relating to this submission, please contact [facility] [phone] * Telephone Encounter - Jenni Rocha RN - 08/15/2021 1:42 PM EDT [facility] received prescription(s) for Emgality 120MG/ML syringes (migraine) . Benefits investigation was conducted, indicating that a prior authorization is required. PA was initiated and pending review through [employer]. All pertinent clinical information was submitted to insurance. CMM Appiah: [id number] Ordering Provider: GIOVANNA Chi Alisha, RN [facility] P: , F: documented in this encounterMercy Health West Hospital07-11-2022 History and physical note * Berlin Avila III, MD - 08/15/2021 8:54 AM EDT Ms. Tran is here today at the request of Rubens Tim [address] [place] [address] for my opinion regarding a right groin [...] uncontrolled Hypertension Mother Heart Attack Mother First UT at age 51 Cardiomyopathy Mother at age [...] position with coughing but exam difficult given bodyhabitus Extremities: No ankle edema. 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 She presents with impairments in independence in exercise, strength , symptom management and activity pacing. PROMIS (Patient-Reported Outcomes MeasurementInformation System) scores were reviewed and all domains identified as a rehabilitation concern. Prognosis for therapy is Good due to: current objective clinical presentation;Prognosis may be limiteddue to multiple co- morbidities;limited tolerance to activity . Gilbert's sign present (increased rig ht hamstring strength with left quad cocontraction suggesting functional origin of weakness. Pt maybenefit from activity pacing and an external focus for rehabilitation. She will benefit from skilled therapy services to meet the goals established for this plan of care as noted below. She will seekcare close to her home, and I am [...] Planned: 1 Planned Treatment Interventions: Neuromuscular re-education (31039) PLAN FOR NEXT VISIT: continue therapy locally. 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 Average BP: 108/72 AOBP - Standardized BP [...] patient to return monitor by mail via [employer] no later than: 08/13/21. Serial number: [id number] [employer] Tracking number [id number] Did the patient receive a blood pressure cuff? Yes Did the patient receive a blood pressure monitor? Yes Did the patient receive a belt? Yes Patient expressed understanding of all above. Patient signed financial release form and aware that they will be billed if the monitor is not returned by the specified date. All questions answered Richard Ferrera MA documented in this encounterMercy [facility]07-08-2022 History of Present illness Narrative* Richard Ferrera MA - 08/12/2021 10:23 AM EDT AMBULATORY BLOOD PRESSURE MONITOR Performed automated office BP reading and results downloaded into [employer] Average BP: 108/72 AOBP - Standardized BP [...] patient to return monitor by mail via [employer] no later than: 08/13/21. Serial number: [id number] [employer] Tracking number [id number] Did the patient receive a blood pressure cuff? Yes Did the patient receive a blood pressure monitor? Yes Did the patient receive a belt? Yes Patient expressed understanding of all above. Patient signed financial release form and aware that they will be billed if the monitor is not returned by the specified date. All questions answered Richard Ferrera MA documented in this encounterMercy [facility]07-01-2022 Instructions* Patient Instructions* Bhargavi Ramesh PA-C - 08/05/2021 9:34 AM EDT 1. Start emgality - the first month is a loading dose of 2 pens and then it is one pen a month thereafter [facility]: [phone] 2. I recommend you take nurtec as first line rescue rather than tylenol 3. Please follow up for botox or sooner if needed documented in this encounterMercy [facility] Hospital07-01-2022 History of Present illness Narrative* Bhargavi Ramesh PA-C - 08/05/2021 9:30 AM EDT Headache Center - Follow up Virtual Visit [...] and Plan from last visit: 07/06/21 with hi Botox #3 Interval Headache History: Leana Tran [...] (FLONASE) 50 mcg/actuation nasal spray Use 1 [place] in each nostril twice daily. zonisamide (ZONEGRAN) 100 mg capsule Take 1 capsule by mouth once daily. rimegepant (NURTEC ODT) 75 mg disintegrating tablet Take 1 tablet by mouth once daily as needed. Nomore than 1 dose in 24 hours. prazosin [...] syringe Inject 2 mL subcutaneously once every month.Inject two pens the first month as a [...] thrombosis. Unremarkable MRA brain and MRA neck. Laboratory Engineer: ROBER Transcribe Date/Time: Mar 31 2016 2:40P [...] change which could potentially contribute to headache. Laboratory Engineer: PSCB Transcribe Date/Time: Jun 27 2021 3:07P [...] Abs Lymph 1.00 - 4.00 k/uL 1.45 Tyrrell% % 4.4 Abs Tyrrell <0.87 k/uL 0.30 Eosin% % 2.5 Abs [...] visit due to nature of virtual visit. [facility] 2015 General: well appearing, in no acute distress, alert Pain Behaviors: no pain behaviors observed Neurological: Mental Status: Alert and oriented to person, place and time. Affect is normal. Speech is spontaneous and fluent without dysarthria. 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 documented in this encounterMercy Health [facility] Hospital05-23-2022 History of Present illness Narrative* Peter Knight APRN.CNP - 06/27/2021 11:00 AM EDT Images from the original note were not included. [facility] Follow-Up/Established Patient Visit Consulting Provider: SELF Individuals who were included in, or assisted with the encounter were: Leana Tran Peter Knight APRN.MACY Chief Complaint/Issues: Leana Tran is a 35 year old female seen in the [facility] for: 1. Established patient 2. 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 She was diagnosed with SARS-CoV-2 on 10/27/2020, after which she developed fatigue, headaches, brain fog, heart racing, decreasedactivity tolerance, paresthesia, GI dysmotility, anxiety, and depression. She was hospitalized for the aforementioned symptoms. She reports HR in 30-40s and BP 160/100. She was given atropine to increase her HR, which brought her HR up to 60. She was evaluated by mental health director and there was mention of placing a pacemaker, which has yet to come to fruition. She also reported history of intermittentleg weakness dating back to adolescence. Primary concerns were intermittent diplopodia and volatileBP ranging from 70/40-160/100Exam significant for bradycardia and [...] not wear, she was told by a mental health director in her local area to wear compression [...] No pes cavus or hammer toes Strength Child Caregiver, push/pull is equal. No drift Movement/Coordination Continuous dance-like movement of legs and torso Gait Unable to stand without upper body assistance. Slow station and stride. No festination or retropulsion. Gait is bizarre and cautious. Romberg's sign is absent. Drowsy, intermittently engaged, facial flushing noted. Neurological Exam Assessment & Plan 06/27/2021 - Neuromuscular, Peter Knight APRN.FOOD EDITOR ASSESSMENT Patient presents today as follow up visit with new complaints of worsening headache, stating this is among the worse headaches of her life, with blurred vision, nausea, and hot flashes. She exhibiteda chorea-like movements of the lower extremities and torso. During the physical exam, she became nauseated and had to lay down. She was intermittently interactive and drowsy. I called a YOSELYN call at this time. Her HR, temp, and SpO2% remained WNL throughout exam but BP continued to gradually rise. There was no facial droop, geriatric physical therapist and push/pulls were equal in strength, PERRL, [...] TOPICALLY ON THE SKIN DAILY FOR 10 DAYS.LEAVE ON 12 HOURS, THEN LEAVE OFF 12 [...] which included preparing to see the patient, uzvk-dv-ccfh patient care, completing clinical documentation, obtaining and/or reviewing separately obtained history, performing a medically appropriate examination, counseling and educating the pat ient/family/caregiver and ordering medications, tests, or procedures. Peter Knight APRN.MACY documented in this encounterMercy [facility] Hospital05-12-2022 Miscellaneous Notes* Telephone Encounter - Yan Bass MD - 06/16/2021 6:03 PM EDT I spoke with the patient regarding the [...] tomorrow. Yan Bass MD documented in this encounterMercy [facility] Hospital05-10-2022 Miscellaneous Notes* Telephone Encounter - Leighann Alcazar RN - 06/14/2021 12:29 PM EDT Pt questions if MG labs are back. (shows seen' in [facility]) Negative results. Also, stopped doxycycline she was taking for sinus infection d/t new sx of bilat LE numbness, rt foot spasms, sensation of heavy body. Continues to have bilat leg spasms and numbness. BP 130-140/70-90. Questions if d/t med or new neuro issue. Leighann Alcazar RN documented in this encounterMercy Health [facility] Hospital05-10-2022 History of Present illness Narrative* Jackelyn Marques MD - 06/14/2021 9:40 AM EDT Images from the original note [...] pleasant female with a history of primary hypothyroidismtaking levothyroxine, who comes in here for evaluation [...] 7.5 tablets/week. She is following a local disciplinary hearing officer who adjusted dose for her. Most recent [...] TOPICALLY ON THE SKIN DAILY FOR 10 DAYS.LEAVE ON 12 HOURS, THEN LEAVE OFF 12 [...] which included preparing to see the patient, vptc-kt-zgwc patient care, completing clinical documentation, obtaining and/or reviewing separately obtained history, performing a medically appropriate examination, counseling and educating the pat ient/family/caregiver, ordering medications, tests, or procedures. This note was dictated using [employer] speech recognition software and may contain some errors that were a result of the program not accurately transcribing what was dictated. Jackelyn Marques M.D., M.Sc. Attending Academic Registrar [facility] [place], [facility] Office: Appointments: documented in this encounterMercy Health [facility] Hospital05-10-2022 Nurse Note* Dian Aldana RN - 06/14/2021 9:06 AM EDT Thank you for choosing the [facility] Department of Endocrinology, Diabetes and Metabolism. Did you know that you need to call 48 hours in advance of your scheduled visit, if you are unable to make your appointment? The [facility] [place] thanks you for your commitment, because patients not showing to their appointment results in a lost opportunity for patients to receive [place] [place] [facility] at the [facility]. To Cancel an appointment, please choose one of the following: - Call the Appointment Call Center at [phone] - From [employer], Go to Appointments Cancel Appts If cancelling, consider your need to reschedule to prevent further delays in your care. To Schedule an appointment, please choose one of the following: - Call the Appointment Call Center at [phone] - From [employer], Go to Appointments Request an Appt documented in this encounterMercy Health [facility] Hospital05-10-2022 History of Present illness Narrative* Haily Vazquez Tech - 06/14/2021 8:25 AM EDT UNIVERSAL PROTOCOL / SAFETY CHECKLIST Procedure to [...] Care Visit completed when applicable. Haily [place] [employer] Magda documented in this encounterMercy Health [facility] Hospital05-06-2022 History of Present illness Narrative* Yan Bass MD - 06/10/2021 10:06 AM EDT HEMATOLOGY INITIAL CONSULTATION June 10, 2021 REFERRAL [...] ofbright red blood per rectum in March (no [...] to see endocrinology, neurology and cardiology at [facility] next week. ROS is negative except [...] Ht 162.6 cm (5' 4.02 ) Wt 97.6kg (215 lb 3.2 oz) LMP 2015 SpO2 [...] resulted in blood loss anemia. I discussed withthe patient the importance of obtaining the correct diagnosis. Her oldest son also has symptoms suggestive of the same bleeding disorder. Patient is not on antiplatelet or anticoagulants. I recommended a complete bleeding disorder work-up including PT, PTT, mixing studies, factor levels, von Willebr and panel, and platelet function studies. Some of the studies will likely not be resulted prior to a surgical procedure. Based on her previous surgical experiences, any surgical bleeding can be minimized by using 2 unitsFFP prior to the procedure and 2 units FFP postoperatively. I will see the patient back in 3 weeks to discuss the above results and next steps, if any. Yan Bass MD I spent a total of 60 minutes on the date of the service which included preparing to see the patient, uuhp-wq-aysj patient care, completing clinical documentation, obtaining and/or reviewing separately obtained history, performing a medically appropriate examination, counseling and educating the pat ient/family/caregiver, ordering medications, tests, or procedures, independently interpreting results (not separately reported) and communicating results to the patient/family/caregiver. CC: Peng Manley documented in this encounterMercy Health West Hospital04-26-2022 Miscellaneous Notes* Telephone Encounter - Shayla Lua [facility] - 05/31/2021 8:15 AM EDT Outside medical records received and scanned in for review. documented in this encounterMercy Health West Hospital04-15-2022 Hospital Discharge instructions* Instructions* Shanna Rivas APRN - FOOD EDITOR - 05/20/2021 Increase your fluid intake. Eat foods that are low in bulk to avoid over extension of your bowel. Follow-up with PCP for reevaluation in the next couple of days. Contact your surgeon to see if you can have your surgery moved up. Return to the ER for increased pain, fevers, difficulty breathing, vomiting or new or worsening signs or symptoms. * Attachments The following attachments cannot be sent through Care Everywhere. * Chest Pain (Filipino) * Abdominal Pain (Filipino) documented in this [employer] Phone: 1(732) 546-373303-12-2022 Hospital Discharge instructions* Instructions* Shanna Rivas APRN - FOOD EDITOR - 04/16/2021 Increase your fluid intake. Follow-up with both PCP and FILM FLAT INSPECTOR for reevaluation. Take Reglan as prescribed. Talk to your FILM FLAT INSPECTOR about the left ovarian cyst seen on CT as well as possible mild fluid in your fallopian tube. Take all medications as prescribed. Return to the ER for increased pain, fevers, difficulty breathing, vomiting or new or worsening signs or symptoms. * Attachments The following attachments cannot be sent through Care Everywhere. * Ovarian Cyst: Functional (Filipino) * Nausea and Vomiting (Filipino) documented in this [employer] Phone: 1(579) 305-820409-27-2021 Hospital Discharge instructions* Instructions* Araseli Barrett MD - 11/01/2020 Continue current medications as prescribed. Tylenol as needed and directed for fever. Use Tessalon Perles every 8 hours as needed for cough. Make sure you stay well-hydrated. Lie on your belly as often as possible while at home. Seek medical attention if you develop any worsening symptoms or any acute concerns * Attachments The following attachments cannot be sent through Care Everywhere. * Coronavirus Disease (COVID-19): General Info (Filipino) documented in this [employer] Phone: 1(542) 572-408008-02-2021 NoteHNO ID: [id number] Author: Lis Moraes MD Service: ? Author [...] Kenalog. - Tolerated procedure well Lis Moraes MDHahnemann [id number] NoteHNO ID: [id number] Author: Lis Moraes MD Service: ? Author Type: Physician Type: Progress Notes Filed: 09/06/2020 3:10 PM Note Text: PROGRESS NOTE- HEADACHE SERVICE DATE: September 06, 2020 Location: [facility] Participants: patient and provider Requesting [...] and bleeds - Lavender (more content not included)...[facility] Appointment Date:02/28/2022 08:30:00 AM Scheduled Provider:LORAINE BURNHAM PA-C Location:[facility] Future Appointments Appointment Date:08/30/2022 03:00:00 PM Scheduled Provider:LORAINE BURNHAM PA-C Location:[facility] Appointment Type:URO Office Visit [facility] evaluation + Plan note Future Appointments Appointment Date:09/11/2023 09:00:00 AM Scheduled Provider:LORAINE BURNHAM PA-C Location:[facility] Appointment Type:URO Office Visit [facility] evaluation note* Diagnosis Strain of lumbar region, initial encounter- Primary documented in this encounter [employer] Phone: evaluation note* Diagnosis COVID-19- Primary documented in this encounter [employer] Phone: evaluation note* Diagnosis Intractable nausea and vomiting- Primary Persistent vomiting Hydrosalpinx Chronic salpingitis and oophoritis Left ovarian cyst Other and unspecified ovarian cyst documented in this encounter [employer] Phone: evaluation note* Diagnosis Chest pain, unspecified type- Primary Abdominal pain, acute, right lower quadrant Abdominal pain, right lower quadrant documented in this encounter [employer] Phone: [id number] note* Diagnosis Urticaria- Primary Urticaria, unspecified Moderate persistent asthma with exacerbation Unspecified asthma, with exacerbation documented in this encounter [employer] Phone: evaluation note* Diagnosis Coagulopathy (HCC)- Primary Other and unspecified coagulation defects documented in this encounter [facility] note* Diagnosis Screening for endocrine disorder- Primary Primary hypothyroidism Unspecified hypothyroidism documented in this encounter [facility] note* Diagnosis Screening for endocrine disorder- Primary documented in this encounter [facility] note* Diagnosis Disorder of autonomic nervous system Unspecified disorder of autonomic nervous system [facility] Spasm of muscle- Primary Acute nonspecific chest pain with low risk of coronary artery disease documented in this encounter [employer] Phone: evaluation note* Diagnosis Worsening headaches- Primary Headache Maxillary sinus cyst Other diseases of nasal cavity and sinuses Muscle spasms of lower extremity, unspecified laterality Akathisia Abnormal involuntary movements Blurred vision Other specified visual disturbances Chorea Other choreas [facility] Diagnosis Coagulopathy (HCC)- Primary Other and unspecified coagulation defects 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 [facility]* Diagnosis Screening for endocrine disorder- Primary [facility]* Diagnosis Intractable chronic migraine without aura and without status migrainosus- Primary Chronic migraine without aura, with intractable migraine, so stated, without mention of status migrainosus Abnormal involuntary movement Abnormal involuntary movements [facility]* Diagnosis Allergy, initial encounter- Primary Headaches [facility]* Diagnosis Bleeding disorder (HCC)- Primary Unspecified hemorrhagic conditions Coagulopathy (HCC) Other and unspecified coagulation defects 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 [facility]* Diagnosis Screening for endocrine disorder [facility]* Diagnosis 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) Unspecified hemorrhagic conditions [facility]* Diagnosis History of COVID-19- Primary Symptomatic bradycardia Other specified cardiac dysrhythmias Blood pressure instability Other abnormal clinical finding [facility]* Diagnosis Angioedema, initial encounter- Primary Urticaria Urticaria, unspecified Hoarseness of voice Dysphonia Allergic rhinitis, unspecified seasonality, unspecified trigger Adverse effect of drug, initial encounter Allergic reaction to contrast material, initial encounter Adverse food reaction, initial encounter Moderate persistent asthma without complication Unspecified asthma Gastroesophageal reflux disease, unspecified whether esophagitis present [facility]* Diagnosis Screening for endocrine disorder Muscle spasms of lower extremity, unspecified laterality Akathisia Abnormal involuntary movements [facility]* Diagnosis Chronic migraine without aura, intractable, without status migrainosus- Primary documented [facility]* Diagnosis Depression, unspecified depression type- Primary Anxiety Anxiety state, unspecified Intractable chronic migraine without aura and without status migrainosus Chronic migraine without aura, with intractable migraine, so stated, without mention of status migrainosus Abnormal involuntary movement Abnormal involuntary movements [facility]* Diagnosis White coat syndrome with hypertension- Primary documented [facility] this [facility]* Diagnosis Intractable chronic migraine without aura and without status migrainosus Chronic migraine without aura, with intractable migraine, so stated, without mention of status migrainosus Abnormal involuntary movement Abnormal involuntary movements [facility] this [facility]* Diagnosis Chronic RLQ pain- Primary Abdominal pain, right lower quadrant Diastasis recti Diastasis of muscle documented in this [facility]* Diagnosis Chronic RLQ pain- Primary Abdominal pain, right lower quadrant documented in this encounter [facility]* Diagnosis Symptomatic bradycardia Other specified cardiac dysrhythmias Blood pressure instability Other abnormal clinical finding History of COVID-19 documented in this encounter [facility]* Diagnosis White coat syndrome without diagnosis of hypertension- Primary Elevated blood pressure reading without diagnosis of hypertension documented [facility] this encounter [facility]* Diagnosis Diffuse pain- Primary Generalized pain Decreased activity tolerance Physical deconditioning Debility, unspecified Orthostatic intolerance documented [facility] this encounter [facility]* Diagnosis Long COVID- Primary Diffuse pain Generalized pain Decreased activity tolerance PTSD (post-traumatic stress disorder) Posttraumatic stress disorder documented in this encounter [facility]* Diagnosis Allergic reaction, initial encounter- Primary documented in this encounter [facility] [employer] Phone: evaluation note* Diagnosis Depression, unspecified depression type- Primary Anxiety Anxiety state, unspecified Abnormal involuntary movement Abnormal involuntary movements documented [facility] this encounter [facility]* Diagnosis Post-acute [...] axilla documented in [facility]* Diagnosis Bone pain- Primary Disorder of bone and cartilage, unspecified Malaise and fatigue Other malaise and fatigue Lymphadenopathy Enlargement of lymph nodes [facility] Diagnosis 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 [facility] Diagnosis History of [...] sites [facility] Diagnosis History of [...] sites [facility] Diagnosis History of [...] sites [facility] Diagnosis 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 [facility] Diagnosis History of [...] joint, multiple sites [facility] Diagnosis Malaise and fatigue- Primary Other malaise and fatigue Lymphadenopathy Enlargement of lymph nodes [facility] Diagnosis Depression, unspecified depression type- Primary Anxiety Anxiety state, unspecified Abnormal involuntary movement Abnormal involuntary movements [facility]* Diagnosis Chronic migraine without aura, intractable, without status migrainosus- Primary [facility]* Diagnosis Palpitations- Primary Symptomatic bradycardia Other specified cardiac dysrhythmias Orthostatic lightheadedness Dizziness and giddiness Diffuse pain Generalized pain Blood pressure instability Other abnormal clinical finding Decreased activity tolerance Orthostatic intolerance Moderate persistent asthma without complication Unspecified asthma Physical deconditioning Debility, unspecified [facility]* Diagnosis Night sweats- Primary Generalized hyperhidrosis Lymphadenopathy Enlargement of lymph nodes Rash and nonspecific skin eruption Rash and other nonspecific skin eruption Allergic rhinitis, unspecified seasonality, unspecified trigger Moderate persistent asthma without complication Unspecified asthma documented in this encounter [facility]* Diagnosis 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) Unspecified hemorrhagic conditions documented in this encounter [facility] note* Diagnosis 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 [facility]* Diagnosis Breast screening- Primary Breast screening, unspecified 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 documented in this encounter [facility] note* Diagnosis KATELIN on CPAP- Primary Obstructive [...] hazards to health documented in this encounter [facility] note* Diagnosis Breast screening- Primary Breast screening, unspecified 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 documented in this encounter [facility] note* Diagnosis Palpitations- Primary Orthostatic intolerance Symptomatic bradycardia Other specified cardiac dysrhythmias documented in this encounter [facility] note* Diagnosis Moderate persistent asthma without complication- Primary Unspecified asthma SOB (shortness of breath) Shortness of breath Post-acute sequelae of COVID-19 (PASC) documented in this encounter [facility] note* Diagnosis Migraine without aura and without status migrainosus, not intractable- Primary Migraine without aura, without mention of intractable migraine without mention of status migrainosus documented in this encounter [facility] note* Diagnosis 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) Unspecified hemorrhagic conditions documented in this encounter [facility] note* Diagnosis No-show for appointment- Primary documented in this encounter [facility] note* Diagnosis 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) Unspecified hemorrhagic conditions Coagulopathy (HCC) Other and unspecified coagulation defects documented in this encounter [facility] note* Diagnosis 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) Unspecified hemorrhagic conditions documented in this encounter [facility] note* Diagnosis 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 documented in this encounter [facility] note* Diagnosis Migraine without aura and without status migrainosus, not intractable- Primary Migraine without aura, without mention of intractable migraine without mention of status migrainosus documented in this encounter [facility] note* Diagnosis 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) Unspecified hemorrhagic conditions Coagulopathy (HCC) Other and unspecified coagulation defects documented in this encounter [facility] note* Diagnosis Moderate persistent asthma without complication (CMS/HCC)- Primary documented in this encounter [facility] note* Diagnosis 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 POTS (postural orthostatic tachycardia syndrome) Tachycardia, unspecified documented in this encounter [facility] note* Diagnosis Chronic RLQ pain Abdominal pain, right lower quadrant documented in this encounter [facility] note* Diagnosis Severe persistent asthma with (acute) exacerbation (CMS/HCC)- Primary Allergic reaction, subsequent encounter Gastroesophageal reflux disease without esophagitis Esophageal reflux Vocal cord dysfunction Other diseases of vocal cords documented in this encounter [facility]* Diagnosis Vocal cord dysfunction- Primary Other diseases of vocal cords documented in this encounter [facility]* Diagnosis Autonomic dysfunction- Primary Chest pain, unspecified type Type 2 diabetes mellitus with hyperglycemia, without long-term current use of insulin (CMS/HCC) Type 2 diabetes mellitus with hyperglycemia, without long-term current use of insulin (CMS/HCC)- Primary Chronic [id number]-[id number] syndrome Moderate persistent asthma without complication (CMS/HCC) Chronic allergic rhinitis due to pollen Edema of both legs Edema Acute non-recurrent pansinusitis Allergic reaction, subsequent encounter- Primary Body mass index (BMI) 38.0-38.9, adult Type 2 diabetes mellitus with hyperglycemia, without long-term current use of insulin ([facility])- Primary Chronic zodg-[id number]-90 syndrome Moderate persistent asthma without complication (CMS/HCC) Chronic allergic rhinitis due to pollen Edema of both legs Edema PCOS (polycystic ovarian syndrome)- Primary Polycystic ovaries Well woman exam with routine gynecological exam Routine gynecological examination Hormone disorder Unspecified endocrine disorder documented in this encounter [facility]* Diagnosis Moderate asthma without complication, unspecified whether persistent [facility] Diagnosis Allergic reaction, subsequent encounter- Primary Body mass index (BMI) 38.0-38.9, adult documented in this encounter [facility]* Diagnosis Type 2 diabetes mellitus with hyperglycemia, without long-term current use of insulin ([facility])- Primary Chronic lzji-ITIJB-32 syndrome Moderate persistent asthma without complication ([facility]) Chronic allergic rhinitis due to pollen Edema of both legs Edema documented in this encounter [facility]* Diagnosis Autonomic dysfunction- Primary Chest pain, unspecified type Type 2 diabetes mellitus with hyperglycemia, without long-term current use of insulin ([facility]) Type 2 diabetes mellitus with hyperglycemia, without long-term current use of insulin ([facility])- Primary Chronic bfyh-AHRBV-73 syndrome Moderate persistent asthma without complication (CMS/HCC) Chronic allergic rhinitis due to pollen Edema of both legs Edema Acute non-recurrent pansinusitis Allergic reaction, subsequent encounter- Primary Body mass index (BMI) 38.0-38.9, adult Type 2 diabetes mellitus with hyperglycemia, without long-term current use of insulin (CMS/HCC)- Primary Chronic cjyn-TSQXQ-35 syndrome Moderate persistent asthma without complication (CMS/HCC) Chronic allergic rhinitis due to pollen Edema of both legs Edema Type 2 diabetes mellitus with hyperglycemia, without long-term current use of insulin (CMS/HCC)- Primary Autonomic dysfunction Chronic unoe-TNQJY-65 syndrome Moderate persistent asthma without complication (CMS/HCC) Chronic allergic rhinitis due to pollen Edema of both legs Edema MDD (major depressive disorder), recurrent episode, mild (HCC) (CMS/HCC) Class 2 severe obesity due to excess calories with serious comorbidity and body mass index (BMI) of 37.0 to 37.9 in adult ([facility]/HCC) Gastroesophageal reflux disease without esophagitis Esophageal reflux documented in this encounter [facility]* Diagnosis Autonomic dysfunction- Primary Chest pain, unspecified type Type 2 diabetes mellitus with hyperglycemia, without long-term current use of insulin (CMS/HCC) Type 2 diabetes mellitus with hyperglycemia, without long-term current use of insulin ([facility]/HCC)- Primary Chronic mpxu-SIZJB-97 syndrome Moderate persistent asthma without complication (CMS/HCC) Chronic allergic rhinitis due to pollen Edema of both legs Edema Acute non-recurrent pansinusitis Allergic reaction, subsequent encounter- Primary Body mass index (BMI) 38.0-38.9, adult Type 2 diabetes mellitus with hyperglycemia, without long-term current use of insulin ([facility]/HCC)- Primary Chronic iuca-LLCUJ-00 syndrome Moderate persistent asthma without complication (CMS/HCC) Chronic allergic rhinitis due to pollen Edema of both legs Edema Type 2 diabetes mellitus with hyperglycemia, without long-term current use of insulin (CMS/HCC)- Primary Autonomic dysfunction Chronic kuol-BUPHD-84 syndrome Moderate persistent asthma without complication (CMS/HCC) Chronic allergic rhinitis due to pollen Edema of both legs Edema MDD (major depressive disorder), recurrent episode, mild (HCC) (CMS/HCC) Class 2 severe obesity due to excess calories with serious comorbidity and body mass index (BMI) of 37.0 to 37.9 in adult ([facility]/HCC) Gastroesophageal reflux disease without esophagitis Esophageal reflux COVID-19- Primary Moderate persistent asthma without complication (CMS/HCC) documented in this encounter [facility]* Diagnosis Migraine without aura and without status migrainosus, not intractable- Primary 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 Word finding difficulty Autonomic dysfunction Cervicalgia documented in this encounter [facility]* Diagnosis Chronic sinusitis documented in this encounter [facility]* Diagnosis 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- Primary documented in this encounter [facility]* Diagnosis 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 documented in this encounter [facility]* Diagnosis 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- Primary documented in this encounter [facility]* Diagnosis Migraine without aura and without status migrainosus, not intractable- Primary 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 Cervicalgia Hypersomnia with sleep apnea Hypersomnia with sleep apnea, unspecified Memory difficulties Memory loss KATELIN (obstructive sleep apnea) Obstructive sleep apnea (adult) (pediatric) Trapezius muscle spasm Word finding difficulty documented in this encounter [facility]* Diagnosis 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 documented in this encounter [facility]* Diagnosis 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- Primary Migraine without aura and without status migrainosus, not intractable Word finding difficulty Trapezius muscle spasm Memory difficulties Memory loss Hypersomnia with sleep apnea Hypersomnia with sleep apnea, unspecified 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 Cervicalgia Brain fog documented in this encounter [facility]* Diagnosis Autonomic dysfunction- Primary Chest pain, unspecified type Type 2 diabetes mellitus with hyperglycemia, without long-term current use of insulin ([facility]/HCC) Type 2 diabetes mellitus with hyperglycemia, without long-term current use of insulin (CMS/HCC)- Primary Chronic noth-DQRYX-04 syndrome Moderate persistent asthma without complication (CMS/HCC) Chronic allergic rhinitis due to pollen Edema of both legs Edema Acute non-recurrent pansinusitis Allergic reaction, subsequent encounter- Primary Body mass index (BMI) 38.0-38.9, adult Type 2 diabetes mellitus with hyperglycemia, without long-term current use of insulin (CMS/HCC)- Primary Chronic jxws-ZRLGB-26 syndrome Moderate persistent asthma without complication (CMS/HCC) Chronic allergic rhinitis due to pollen Edema of both legs Edema Type 2 diabetes mellitus with hyperglycemia, without long-term current use of insulin (CMS/HCC)- Primary Autonomic dysfunction Chronic hqvk-CIRPJ-99 syndrome Moderate persistent asthma without complication (CMS/HCC) [...] Primary Moderate persistent asthma without complication (CMS/HCC) Melanocytic nevus of trunk- Primary Benign neoplasm of skin of trunk, except scrotum Other specified dermatitis Dermatofibroma of right upper extremity documented in this encounter [facility]* Diagnosis Autonomic dysfunction- Primary Chest pain, unspecified type Type 2 diabetes mellitus with hyperglycemia, without long-term current use of insulin (HCC) Type 2 diabetes mellitus with hyperglycemia, without long-term current use of insulin (HCC)- Primary Chronic xayg-VCUWD-29 syndrome Moderate persistent asthma without complication (HCC) Chronic allergic rhinitis due to pollen Edema of both legs Edema Acute non-recurrent pansinusitis Allergic reaction, subsequent encounter- Primary Body mass index (BMI) 38.0-38.9, adult Type 2 diabetes mellitus with hyperglycemia, without long-term current use of insulin (HCC)- Primary Chronic rijl-SNRSK-45 syndrome Moderate persistent asthma without complication (HCC) Chronic allergic rhinitis due to pollen Edema of both legs Edema Type 2 diabetes mellitus with hyperglycemia, without long-term current use of insulin (HCC)- Primary Autonomic dysfunction Chronic vpxq-EUJYP-60 syndrome Moderate persistent asthma without complication (HCC) Chronic allergic rhinitis due to pollen Edema of both legs Edema MDD (major depressive disorder), recurrent episode, mild Class 2 severe obesity due to excess calories with serious comorbidity and body mass index (BMI) of 37.0 to 37.9 in adult (CMS-HCC) Gastroesophageal reflux disease without esophagitis Esophageal reflux Annual physical exam- Primary Routine general medical examination at a health care facility Type 2 diabetes mellitus with hyperglycemia, without long-term current use of insulin (HCC) Primary hypothyroidism Unspecified hypothyroidism Edema of both legs Edema documented in this encounter [facility]* Diagnosis Migraine without aura and without status migrainosus, not intractable [facility] Diagnosis Edema, unspecified type Palpitations with regular cardiac rhythm [facility]* Diagnosis Onset Date Resolution Status Admit Date Right forearm injury acute Augu st 2024 11:37am [facility] Work Phone: Evaluation note* Diagnosis Migraine without aura and without status migrainosus, not intractable documented in this encounter [facility]* Diagnosis Autonomic dysfunction- Primary Chest pain, unspecified type Type 2 diabetes mellitus with hyperglycemia, without long-term current use of insulin (HCC) Type 2 diabetes mellitus with hyperglycemia, without long-term current use of insulin (HCC)- Primary Chronic gvrq-KDZFQ-54 syndrome Moderate persistent asthma without complication (HCC) Chronic allergic rhinitis due to pollen Edema of both legs Edema Acute non-recurrent pansinusitis Allergic reaction, subsequent encounter- Primary Body mass index (BMI) 38.0-38.9, adult Type 2 diabetes mellitus with hyperglycemia, without long-term current use of insulin (HCC)- Primary Chronic lnox-PNDXR-42 syndrome Moderate persistent asthma without complication (HCC) Chronic allergic rhinitis due to pollen Edema of both legs Edema Type 2 diabetes mellitus with hyperglycemia, without long-term current use of insulin (HCC)- Primary Autonomic dysfunction Chronic efgb-GDIVO-87 syndrome Moderate persistent asthma without complication (HCC) Chronic allergic rhinitis due to pollen Edema of both legs Edema MDD (major depressive disorder), recurrent episode, mild Class 2 severe obesity due to excess calories with serious comorbidity and body mass index (BMI) of 37.0 to 37.9 in adult ([facility]-HCC) Gastroesophageal reflux disease without esophagitis Esophageal reflux Annual physical exam- Primary Routine general medical examination at a health care facility Type 2 diabetes mellitus with hyperglycemia, without long-term current use of insulin (HCC) Primary hypothyroidism Unspecified hypothyroidism Edema of both legs Edema Chronic rhinosinusitis- Primary Unspecified sinusitis (chronic) Right wrist pain Pain in joint, forearm Right forearm pain documented in this encounter [facility]* Diagnosis POTS (postural orthostatic tachycardia syndrome)- Primary Tachycardia, unspecified Bleeding disorder Unspecified hemorrhagic conditions 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 Systemic lupus erythematosus, unspecified SLE type, unspecified organ involvement status (HCC) Celiac disease (HCC) Celiac disease Irritable bowel syndrome without diarrhea Irritable bowel syndrome History of 2018 novel coronavirus disease (COVID-19) Status post hysterectomy Acquired absence of both cervix and uterus [facility]* Diagnosis Autonomic dysfunction- Primary Chest pain, unspecified type Type 2 diabetes mellitus with hyperglycemia, without long-term current use of insulin (HCC) Type 2 diabetes mellitus with hyperglycemia, without long-term current use of insulin (HCC)- Primary Chronic vmar-HMSXZ-58 syndrome Moderate persistent asthma without complication (HCC) Chronic allergic rhinitis due to pollen Edema of both legs Edema Acute non-recurrent pansinusitis Allergic reaction, subsequent encounter- Primary Body mass index (BMI) 38.0-38.9, adult Type 2 diabetes mellitus with hyperglycemia, without long-term current use of insulin (HCC)- Primary Chronic qiuc-SLHTZ-08 syndrome Moderate persistent asthma without complication (HCC) Chronic allergic rhinitis due to pollen Edema of both legs Edema Type 2 diabetes mellitus with hyperglycemia, without long-term current use of insulin (HCC)- Primary Autonomic dysfunction Chronic rlpp-EXNUC-56 syndrome Moderate persistent asthma without complication (HCC) Chronic allergic rhinitis due to pollen Edema of both legs Edema MDD (major depressive disorder), recurrent episode, mild Class 2 severe obesity due to excess calories with serious comorbidity and body mass index (BMI) of 37.0 to 37.9 in adult ([facility]-HCC) Gastroesophageal reflux disease without esophagitis Esophageal reflux Type 2 diabetes mellitus with hyperglycemia, without long-term current use of insulin (HCC) Annual physical exam- Primary Routine general medical examination at a health care facility Type 2 diabetes mellitus with hyperglycemia, without long-term current use of insulin (HCC) Primary hypothyroidism Unspecified hypothyroidism Edema of both legs Edema Chronic rhinosinusitis- Primary Unspecified sinusitis (chronic) Right wrist pain Pain in joint, forearm Right forearm pain [facility] N[facility] No data available for this section [facility] Hospital Discharge instructions* Instructions* Kody Cm [...] through Care Everywhere. * Strain or Sprain (Filipino) [facility]* Attachments The following attachments cannot be sent through Care Everywhere. * Chest Pain (Filipino) * Restless Legs Syndrome (Filipino) [facility] Hospital Discharge instructions No data available for this section [facility] InstructionsNot on filedocumented in this encounter [...] for this section [facility] reason for referral (narrative)* Diagnostic Procedure Only (Routine) - Authorized Specialty Diagnoses / Procedures Referred By Sabas harris Referred To Contact US IMAGING Diagnoses Chronic RLQ pain Procedures US SOFT TISSUE ABDOMEN US ABDOMINAL REAL [place] W/[place] [address] [place] [address] Us Imaging Referral ID Status Reason Start Date Expiration Date Visits Requested Visits Authorized [id number] Authorized Auto-Generat ed Referral 08/15/2021 09/14/2022 1 1 [facility] for referral (narrative)* Diagnostic Procedure Only (Routine) - Authorized Specialty Diagnoses / Procedures Referred By Sabas t Referred To Contact US IMAGING Diagnoses Chronic RLQ pain Procedures US PELVIS LTD US PELVIC NONOBSTETRIC IMAGE DCMTN LIMITED/F/[place] [address] [place] [address] Us Imaging Referral ID Status Reason Start Date Expiration Date Visits Requested Visits Authorized [id number] Authorized Auto-Generat ed Referral 08/16/2021 09/15/2022 1 1 [facility] for referral (narrative)* Outpatient Procedure (Routine) - Closed Specialty Diagnoses / Procedures Referred By Leviac t Referred To Contact [facility] Diagnoses Symptomatic bradycardia Blood pressure instability History of COVID-19 Procedures ECHO ECHO TTHRC R-T 2D W/WOM-MODE COMPL SPEC&COLR D Sai Perez MD [address] [place] [address] [facility] [place] [address] [place] [id number] Referral ID Status Reason Start Date Expiration Date V isits Requested Visits Authorized [id number] Closed Auto-Generate d Referral 07/21/2021 07/21/2022 1 1 [facility] for referral (narrative)* Diagnostic Procedure Only (Routine) - Pending Review Specialty Diagnoses / Procedures Referred By Sabas t Referred To Contact US IMAGING Diagnoses Post-acute sequelae of COVID-19 (PASC) Mass of left axilla Procedures US CHEST WALL/SOFT TISSUE US CHEST REAL TIME W/IMAGE DOCUMENTATION Landen Mahmood APRN.CNP [address] [place] [address] Us Imaging Referral ID Status Reason Start Date Expiration Date Visits Requested Visits Authorized [id number] Pending Review Auto-Generat ed Referral 09/19/2021 10/19/2022 [...] multiple sites Procedures LUNG VOLUMES Landen Mahmood APRN.FOOD EDITOR [address] [place] [address] [facility] [address] [place] [address] Referral ID Status Reason Start Date Expiration Date Visits Requested Visits Authorized [id number] Pending Review Auto-Generat ed Referral 09/19/2021 10/19/2022 1 1 * Outpatient Procedure (Routine) - Pending Review Specialty Diagnoses / Procedures [facility] Diagnoses History of COVID-19 Post-acute sequelae of COVID-19 (PASC) SOB (shortness of breath) Chronic cough Chest discomfort Palpitation CAVANAUGH (dyspnea on exertion) Dizziness Near syncope Night sweats Orthopnea Anxiety Myalgia Pain in joint, multiple sites Procedures SPIROMETRY - BASELINE AND POST DILATOR BRNCDILAT RSPSE SPMTRY PRE&POST-BRNCDILAT ADMN Landen Mahmood APRN.FOOD EDITOR [address] [place] [address] [facility] [address] [place] [address] Referral ID Status Reason Start Date Expiration Date Visits Requested Visits Authorized [id number] Pending Review Auto-Generat ed Referral 09/19/2021 10/19/2022 [...] MINUTE WALK CARDIOPULMONARY EXERCISE STRESS Landen Mahmood APRN.FOOD EDITOR [address] [place] [address] [place] [address] Referral ID Status Reason Start Date Expiration Date Visits Requested Visits Authorized [id number] Pending Review Auto-Generat ed Referral 09/19/2021 10/19/2022 [...] CAPACITY (DLCO) DIFFUSING CAPACITY Landen Mahmood APRN.CNP [address] [place] [id number] [facility] [address] [place] [address] Referral ID Status Reason Start Date Expiration Date Visits Requested Visits Authorized [id number] Pending Review Auto-Generat ed Referral 09/19/2021 10/19/2022 1 1 [facility] for referral (narrative)* Outpatient Procedure (Routine) - Pending Review Specialty Diagnoses / Procedures Referred By Contac t Referred To Contact [facility]OLOGICAL INSTITUTE Diagnoses KATELIN on CPAP Poor compliance with CPAP treatment Procedures PAP NAP PSG (CPAP, BILEVEL, ASV) SLEEP STD REC VNTJ RESPIR ECG/HRT RATE&O2 ATTN Meena Grissom MD [address] [place] [address] Neurological [facility] [address] [place] [address] Referral ID Status Reason Start Date Expiration Date Visits Requested Visits Authorized [id number] Pending Review Auto-Generat ed Referral 12/16/2022 1 1 [facility] for referral (narrative)* Outpatient Procedure (Routine) - Pending Review Specialty Diagnoses / Procedures Referred By Contac t Referred To Contact [facility] Diagnoses Moderate persistent asthma without complication SOB (shortness of breath) Post-acute sequelae of COVID-19 (PASC) Procedures SPIROMETRY - BASELINE AND POST DILATOR BRNCDILAT RSPSE SPMTRY PRE&POST-BRNCDILAT ADMN Jaja Cabral PA-C [address] [place] [address] Res[facility] [address] [place] [address] Referral ID Status Reason Start Date Expiration Date Visits Requested Visits Authorized [id number] Pending Review Auto-Generat ed Referral 12/06/2021 01/05/2023 1 1 * Outpatient Procedure (Routine) - Pending Review Specialty Diagnoses / Procedures Referred By Contac t Referred To Contact [facility] Diagnoses Moderate persistent asthma without complication SOB (shortness of breath) Post-acute sequelae of COVID-19 (PASC) Procedures NITRIC OXIDE, EXHALED NITRIC OXIDE GAS DETERMINATION Jaja Cabral PA-C [address] [place] [address] [facility] [address] [place] [address] Referral ID Status Reason Start Date Expiration Date Visits Requested Visits Authorized [id number] Pending Review Auto-Generat ed Referral 12/06/2021 01/05/2023 1 1 [facility] for referral (narrative)* Diagnostic Procedure Only (Routine) - Closed Specialty Diagnoses / Procedures Referred By Contac t Referred To Contact US IMAGING Diagnoses Chronic RLQ pain Procedures US PELVIS LTD US PELVIC NONOBSTETRIC IMAGE DCMTN LIMITED/F/[place] [address] [place] [address] [facility] [place] [address] Referral ID Status Reason Start Date Expiration Date V isits Requested Visits Authorized [id number] Closed Auto-Generate d Referral 08/16/2021 09/15/2022 1 1 [facility] for referral (narrative)* Consultation (Routine) - Pending Review Specialty Diagnoses / Procedures Referred By Contac t Referred To Contact Speech Pathology Diagnoses Vocal cord dysfunction Procedures TX OFFICE/OUTPATIENT NEW HIGH MDM 60 MINUTES Christy Painting MD [address] [address] Referral ID Status Reason Start Date Expiration Date Visits Requested Visits Authorized [id number] Pending Review Specialty Services Required 11/07/2023 05/05/2024 1 1 [facility] Consultation (Routine) - Pending Review Specialty Diagnoses / Procedures Referred By Contac t Referred To Contact Allergy Diagnoses Allergic reaction, subsequent encounter Procedures TX OFFICE/OUTPATIENT NEW HIGH MDM 60 MINUTES Cas Dowell MD [address] [place] [address] Christy Painting MD [address] [address] Referral ID Status Reason Start Date Expiration Date Visits Requested Visits Authorized [id number] Pending Review Specialty Services Required 09/26/2023 03/24/2024 1 1 [facility] (narrative)No reason for referral information [facility] Work Phone: Reason for visit Narrative* Outpatient Procedure (Routine) - Closed Specialty Diagnoses / Procedures Referred By Contac t Referred To Contact [facility] Diagnoses Symptomatic bradycardia Blood pressure instability History of COVID-19 Procedures ECHO ECHO TTHRC R-T 2D W/WOM-MODE COMPL SPEC&COLR D Sai Perez MD [address] [id number] [place] [address] Referral ID Status Reason Start Date Expiration Date V isits Requested Visits Authorized [id number] Closed Auto-Generate d Referral 07/21/2021 07/21/2022 1 1 [facility] for visit Narrative* Outpatient Procedure (Routine) [...] SIX MINUTE WALK CARDIOPULMONARY EXERCISE STRESS Landen Mahmood, LIO.FOOD EDITOR [address] [place] [address] [facility] [address] [place] [address] Referral ID Status Reason Start Date Expiration Date V isits Requested Visits Authorized [id number] Closed Auto-Generate d Referral 09/19/2021 10/19/2022 1 1 [facility] for visit Narrative* Diagnostic Procedure Only (Routine) - Closed Specialty Diagnoses / Procedures Referred By Contac t Referred To Contact US IMAGING Diagnoses Chronic RLQ pain Procedures US PELVIS LTD US PELVIC NONOBSTETRIC IMAGE DCMTN LIMITED/F/[place] [address] [place] [address] Us Imaging [place] [address] Referral ID Status Reason Start Date Expiration Date V isits Requested Visits Authorized [id number] Closed Auto-Generate d Referral 08/16/2021 09/15/2022 1 1 [facility] for visit Narrative* Cardiology (Routine) - Closed Specialty Diagnoses / Procedures Referred By Contac t Referred To Contact Cardiology Diagnoses Edema, unspecified type Palpitations with regular cardiac rhythm Procedures Echo (TTE) complete (PRN contrast/bubble/strain/3D) TX ECHO TTHRC R-T 2D W/WOM-MODE COMPL SPEC&COLR D TX TTE W OR WO FOL WCON,Macrina Cadena APRN - FOOD EDITOR [address] [place] [address] Phone: tel: fax: Referral ID Status Reason Start Date Expiration Date Visits Re quested Visits Authorized [id number] Closed 08/18/2024 08/15/2025 1 1 [facility] Advance Directives Documents on File Type Date Recorded Patient Sander Machine Expl anation ACP-Advance Directive ACP-Power of Senior Electrical Estimator Latest Code Status on File Code Status Date Activated Date Inactivated Comments Full Code 12/30/2011 10:09 AM 12/31/2011 4:00 PM Documents on File Type Date Recorded Patient Sander Machine Expl anation Advance Directive(s) 05/18/2015 10:11 AM Advance Directive(s) 05/14/2015 12:11 PM Documents on File Type Date Recorded Patient Sander Machine Expl anation Advance Directive(s) 06/27/2021 1:27 PM Advance Directive(s) 05/18/2015 10:11 AM Advance Directive(s) 05/14/2015 12:11 PM Documents on File Type Date Recorded Patient Sander Machine Expl anation Advance Directive(s) 06/27/2021 1:27 PM Advance Directive(s) 05/18/2015 10:11 AM Advance Directive(s) 05/14/2015 12:11 PM Documents on File Type Date Recorded Patient Sander Machine Expl anation ACP-Advance Directive 01/12/2022 2:29 PM ACP-Power of Senior Electrical Estimator 01/12/2022 2:29 PM Latest Code Status on File Code Status Date Activated Date Inactivated Comments Full Code 01/08/2022 5:06 PM 01/11/2022 3:07 PM Full Code 12/30/2011 10:09 AM 12/31/2011 4:00 PM Healthcare Agents on File Name Relationship Healthcare Agent Relationship Communication Sean Tran Spouse Primary Decision Maker Documents on File Type Date Recorded Patient Sander Machine Expl anation ACP-Advance Directive 01/12/2022 2:29 PM ACP-Power of Senior Electrical Estimator 01/12/2022 2:29 PM Date Activated Date Inactivated [...] Communication Sean Tran Spouse Primary Decision Maker Healthcare Agents on File Name Relationship Healthcare Agent Relationship Communication Sean Tran Spouse Primary Decision Maker Advance Directive Response Recorded Date/ Time Advance Directives No December 3:56pm Advance Directive Response Recorded Date/ Time Advance Directives No September 08 4:54pm Summary Purpose Family History Relationship Condition Age at Onset Recorded Date/T edgar father Heart disease Unknown Unknown Diabetes mellitus Unknown Hypertension Unknown mother Diabetes mellitus Unknown History of stroke Unknown Heart disease Unknown Reason for Referral Specialty Diagnoses / Procedures Referred By Sabas harris Referred To Contact Neurology Diagnoses Muscle spasms of lower extremity, unspecified laterality Akathisia Procedures CONSULT TO NEUROLOGY OFFICE/OUTPATIENT [facility] 60-74 MINUTES Peter Knight APRN.FOOD EDITOR [address] [place] [id number] Referral ID Status Reason Start Date Expiration Date Visits Requested Visits Authorized [id number] Authorized PCP Requested Referral 06/27/2021 06/27/2022 1 1 Specialty Diagnoses / Procedures Referred By Sabas harris Referred To Contact Ent - Otolaryngology Diagnoses Maxillary sinus cyst Procedures CONSULT TO ENT OFFICE/OUTPATIENT [facility] 60-74 MINUTES Peter Knight APRN.CNP [address] [place] [id number] Referral ID Status Reason Start Date Expiration Date Visits Requested Visits Authorized [id number] Authorized PCP Requested Referral 06/27/2021 06/27/2022 1 1 Specialty Diagnoses / Procedures Referred By Contac t Referred To Contact Diagnoses Coagulopathy (HCC) Qualitative platelet disorder (HCC) Procedures CONSULT TO MEDICAL GENETICS - GENERAL OFFICE/OUTPATIENT [facility] 60-74 MINUTES MEDICAL GENETICS COUNSELING EACH 30 MINUTES Yan Bass MD [address] [place] [address] [place] [address] [facility] [address] [place] [address] Referral ID Status Reason Start Date Expiration Date Visits Requested Visits Authorized [id number] Authorized PCP Requested Referral Auto-Generate d Referral 07/01/2021 07/01/2022 1 1 Specialty Diagnoses / Procedures Referred By Contac t Referred To Contact Psychology Diagnoses Intractable chronic migraine without aura and without status migrainosus Abnormal involuntary movement Procedures CONSULT TO PSYCHOLOGY OFFICE/OUTPATIENT [facility] 60-74 MINUTES Tracee Mcintyre MD [address] [place], [place] [id number] Referral ID Status Reason Start Date Expiration Date Visits Requested Visits Authorized [id number] Pending Review PCP Requested Referral 07/06/2021 07/06/2022 1 1 Specialty Diagnoses / Procedures Referred By Contac t Referred To Contact [facility] Diagnoses Intractable chronic migraine without aura and without status migrainosus Abnormal involuntary movement Procedures CONSULT TO PHYSICAL THERAPY PHYSICAL THERAPY EVALUATION HIGH COMPLEX 45 MINS Tracee Mcintyre MD [address] [place], [place] [address]RAF[address] [place] [address] [facility] [address] [address] Referral ID Status Reason Start Date Expiration Date Visits Requested Visits Authorized [id number] Pending Review Auto-Generat ed Referral 07/06/2021 07/06/2022 1 1 Specialty Diagnoses / Procedures Referred By Contac t Referred To Contact Allergy Diagnoses Allergy, initial encounter Procedures CONSULT TO ALLERGY/IMMUNOLOGY OFFICE/OUTPATIENT [facility] 60-74 MINUTES Aldo Ann MD [facility] [place] [address] Referral ID Status Reason Start Date Expiration Date Visits Requested Visits Authorized [id number] Authorized PCP Requested Referral 07/14/2021 07/14/2022 1 1 Specialty Diagnoses / Procedures Referred By Contac t Referred To Contact PULM COVID REC[facility] Diagnoses History of COVID-19 Procedures CONSULT TO [facility] REC[facility] Sai Perez MD [address] [facility] [address] Pulm [facility] [address] [place] [address] Referral ID Status Reason Start Date Expiration Date Visits Requested Visits Authorized [id number] Authorized PCP Requested Referral 07/21/2021 07/21/2022 1 1 Specialty Diagnoses / Procedures Referred By Contac t Referred To Contact [facility] Diagnoses Symptomatic bradycardia Blood pressure instability History of COVID-19 Procedures ECHO ECHO TTHRC R-T 2D W/WOM-MODE COMPL SPEC&COLR D Sai Perez MD [address] [place] [address] [facility] Vascular [address] [address] Referral ID Status Reason Start Date Expiration Date Visits Requested Visits Authorized [id number] Authorized Auto-Generat ed Referral 07/21/2021 07/21/2022 1 1 Specialty Diagnoses / Procedures Referred By Contac t Referred To Contact Ent - Otolaryngology Diagnoses Hoarseness of voice Procedures CONSULT TO ENT OFFICE/OUTPATIENT [facility] 60-74 MINUTES Henny Rushing MD [address] [address] Rc Cardenas, PhD, [facility]-SOFTWARE DESIGNER [address] [place] [address] Referral ID Status Reason Start Date Expiration Date Visits Requested Visits Authorized [id number] Authorized PCP Requested Referral 07/25/2021 07/25/2022 1 1 Specialty Diagnoses / Procedures Referred By Contac t Referred To Contact Diagnoses Diffuse pain Decreased activity tolerance Physical deconditioning Procedures WELLNESS CONSULT OFFICE/OUTPATIENT [facility] 60-74 MINUTES Peter Knight APRN.CNP [address] [place] [address] Referral ID Status Reason Start Date Expiration Date Visits Requested Visits Authorized [id number] Authorized PCP Requested Referral 08/23/2021 08/23/2022 1 1 Specialty Diagnoses / Procedures Referred By Contac t Referred To Contact Diagnoses Long COVID PTSD (post-traumatic stress disorder) Procedures MIND/BODY HOLISTIC PSYCHOTHERAPY OFFICE/OUTPATIENT [facility] 60-74 MINUTES Ayaka Bright MD [facility] [address] [place] [address] Referral ID Status Reason Start Date Expiration Date Visits Requested Visits Authorized [id number] Authorized PCP Requested Referral 08/30/2021 08/30/2022 1 1 Specialty Diagnoses / Procedures Referred By Contac t Referred To Contact Diagnoses Long COVID Diffuse pain Decreased activity tolerance Procedures CONSULT TO NUTRITION SERVICES AT [facility] OFFICE/OUTPATIENT [facility] 60-74 MINUTES [place] [address] Referral ID Status Reason Start Date Expiration Date Visits Requested Visits Authorized [id number] Authorized PCP Requested Referral 08/30/2021 08/30/2022 1 1 Specialty Diagnoses / Procedures Referred By Contac t Referred To Contact Diagnoses Chronic migraine without aura, intractable, without status migrainosus Procedures PROVIDER ORDERED FOLLOW UP OFFICE/OUTPATIENT [facility] 60-74 MINUTES Bhargavi Ramesh PA-C [address] [place] [address] Referral ID Status Reason Start Date Expiration Date Visits Requested Visits Authorized [id number] Authorized PCP Requested Referral 10/19/2022 1 1 Specialty Diagnoses / Procedures Referred By Contac t Referred To Contact Hematology Diagnoses Lymphadenopathy Night sweats Procedures CONSULT TO HEMATOLOGY OFFICE/OUTPATIENT [facility] 60-74 MINUTES Henny Rushing MD [address] [address] Referral ID Status Reason Start Date Expiration Date Visits Requested Visits Authorized [id number] Authorized PCP Requested Referral 10/24/2021 10/24/2022 1 1 Specialty Diagnoses / Procedures Referred By Contac t Referred To Contact Diagnoses Migraine without aura and without status migrainosus, not intractable Procedures PROVIDER ORDERED FOLLOW UP OFFICE/OUTPATIENT NEW HIGH MDM 60-74 MINUTES Bhargavi Ramesh PA-C [address] [place] [address] Referral ID Status Reason Start Date Expiration Date Visits Requested Visits Authorized [id number] Authorized PCP Requested Referral 04/16/2022 01/16/2023 1 1 Specialty Diagnoses / Procedures Referred By Contac t Referred To Contact Cardiology Diagnoses 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) Coagulopathy (HCC) Procedures CONSULT TO CARDIOLOGY OFFICE/OUTPATIENT NEW HIGH MDM 60-74 MINUTES Fuentes Amaral MD [address] [place] [address] [place] [address] Referral ID Status Reason Start Date Expiration Date Visits Requested Visits Authorized [id number] Authorized PCP Requested Referral 02/16/2022 02/16/2023 1 1 Referral ID Status Reason Start Date Expiration Date Visits Requested Visits Authorized [id number] Authorized PCP Requested Referral 10/27/2022 04/26/2023 1 1 Specialty Diagnoses / Procedures Referred By Contac t Referred To Contact Diagnoses Moderate asthma without complication, unspecified whether persistent Procedures Full PFT Study With Bronchodilator Nabor Yancey, PROMOTIONS PRODUCER - FOOD EDITOR [address] [address] Referral ID Status Reason Start Date Expiration Date V isits Requested Visits Authorized [id number] Not Required - RTA 12/04/2023 12/03/2024 1 1 Chief Complaint and Reason for Visit Chief Complaint Admit Date Right forearm pain x2 weeks post fall Au 2024 11:37am S59.911A - Unspecified injury of right f orearm, in September 08, 2024 12:10pm Reason for Visit Admit Date Right forearm injury September 08, 2024 11 :37am Additional Source Comments Reason for Visit (unrecogniz [...] Comments Allergic Reaction Unknown trigger, 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 Pt used epi-pen prior to arrival and reports feeling short of breath Reason Comments surgery clearence Reason Comments Adrenal Specialty Diagnoses / Procedures Referred By Contac t Referred To Contact Endocrinology Diagnoses Symptomatic bradycardia Blood pressure instability Procedures CONSULT TO ENDOCRINOLOGY OFFICE/OUTPATIENT [facility] 60-74 MINUTES Peter Knight, LIO.FOOD EDITOR [address] [place] [address] Referral ID Status Reason Start Date Expiration Date V isits Requested Visits Authorized [id number] Closed PCP Requested Referral 05/24/2021 05/24/2022 1 [...] CONSULT TO MEDICAL GENETICS - GENERAL OFFICE/OUTPATIENT [facility] 60-74 MINUTES MEDICAL GENETICS COUNSELING EACH 30 MINUTES Yan Bass MD [address] [place] [address] [place] [address] [facility] [address] [place] [address] Referral ID Status Reason Start Date Expiration Date V isits Requested Visits Authorized [id number] Closed PCP Requested Referral Auto-Generated Referral 07/01/2021 07/01/2022 1 1 Reason Comments Coagulopathy Specialty Diagnoses / Procedures Referred By Contac t Referred To Contact Cardiology Diagnoses Symptomatic bradycardia Blood pressure instability Procedures CONSULT TO CARDIOLOGY OFFICE/OUTPATIENT [facility] 60-74 MINUTES Peter Knight, LIO.FOOD EDITOR [address] [place] [address] Referral ID Status Reason Start Date Expiration Date V isits Requested Visits Authorized [id number] Closed PCP Requested Referral 05/24/2021 05/24/2022 1 1 Reason Comments Allergies Asthma Reason Comments Follow Up Chronic Migraine Reason Comments Consult Specialty Diagnoses / Procedures Referred By Contac t Referred To Contact Psychology Diagnoses Intractable chronic migraine without aura and without status migrainosus Abnormal involuntary movement Procedures CONSULT TO PSYCHOLOGY OFFICE/OUTPATIENT [facility] 60-74 MINUTES Tracee Mcintyre MD [address] [place] [address] Referral ID Status Reason Start Date Expiration Date Visits Requested Visits Authorized [id number] Pending Review PCP Requested Referral 07/06/2021 07/06/2022 [...] HIGH COMPLEX 45 MINS Tracee Mcintyre MD [address] [id number] [facility] [place] [address] Referral ID Status Reason Start Date Expiration Date V isits Requested Visits Authorized [id number] Authorized 02/05/2021 02/04/2022 99 99 Reason Comments Consult rt. ing hernia Reason Comments Insurance Authorization Emgality 120MG/M L syringes (migraine) Reason Comments Established Patient Follow-Up Reason Comments Results - Ct Reason Comments Covid19 Concern Specialty Diagnoses / Procedures Referred By Contac t Referred To Contact Diagnoses Diffuse pain Decreased activity tolerance Physical deconditioning Procedures WELLNESS CONSULT OFFICE/OUTPATIENT [facility] MDM 60-74 MINUTES Peter Knight APRN.FOOD EDITOR [address] [place] [address] Referral ID Status Reason Start Date Expiration Date V isits Requested Visits Authorized [id number] Closed PCP Requested Referral 08/23/2021 08/23/2022 1 1 Reason Comments Allergic Reaction Onset prior to arriv al. Pt reports her face is burning and feels short of breath. 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 Reason Comments New Specialty Diagnoses / Procedures Referred By Sabas harris Referred To Contact [facility] Diagnoses History of COVID-19 Procedures CONSULT TO [facility] Sai Perez MD [address] [place] [address] [facility] [address] [place] [address] Referral ID Status Reason Start Date Expiration Date V isits Requested Visits Authorized [id number] Closed PCP Requested Referral 07/21/2021 07/21/2022 1 1 Reason Comments Consult Patient states she w as at [facility] on 09/19/21, seen Landen Mahmood APRN. She states her lymph nodes were swollen at that visit. Patient states had COVID 10/2020. She states her bones feel like someone is scraping them. Patient states she will pours out sweat or is freezing symptoms started in May/June and getting a lot worse now. Reason Comments Spirometry Specialty Diagnoses / Procedures Referred By Sabas harris Referred To Contact [facility] Diagnoses History of COVID-19 Post-acute sequelae of COVID-19 (PASC) SOB (shortness of breath) Chronic cough Chest discomfort Palpitation CAVANAUGH (dyspnea on exertion) Dizziness Near syncope Night sweats Orthopnea Anxiety Myalgia Pain in joint, multiple sites Procedures LUNG DIFFUSION CAPACITY (DLCO) DIFFUSING CAPACITY Landen Mahmood APRN.FOOD EDITOR [address] [place] [address] [facility] [address] [place] [address] Referral ID Status Reason Start Date Expiration Date V isits Requested Visits Authorized [id number] Closed Auto-Generate d Referral 09/19/2021 10/19/2022 1 [...] BRNCDILAT RSPSE SPMTRY PRE&POST-BRNCDILAT ADMN Landen Mahmood APRN.FOOD EDITOR [address] [place] [address] [facility] [address] [place], [place] [id number] Referral ID Status Reason Start Date Expiration Date V isits Requested Visits Authorized [id number] Closed Auto-Generate d Referral 09/19/2021 10/19/2022 1 [...] LUNG VOLUMES W/WO AIRWAY RESIST Landen Mahmood APRN.FOOD EDITOR [address] [place] [address] [facility] [address] [place] [id number] Referral ID Status Reason Start Date Expiration Date V isits Requested Visits Authorized [id number] Closed Auto-Generate d Referral 09/21/2021 02/04/2022 1 1 Reason Comments Radio Gen A21 Reason Comments discuss test results Reason Comments Follow Up Chronic Migraine Reason Comments Palpitations Reason Comments Allergic Rhinitis Asthma Reason Comments coagulpathy Reason Comments Established Patient Reason Comments Appointment Download Pap Therapy Follow UP Reason Comments 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 Download Reason Comments Sleep Apnea Reason Comments Breast screening Reason Comments Patient Update Reason Comments Follow Up Migraine Specialty Diagnoses / Procedures Referred By Contac t Referred To Contact Diagnoses Chronic migraine without aura, intractable, without status migrainosus Procedures PROVIDER ORDERED FOLLOW UP OFFICE/OUTPATIENT NEW HIGH MDM 60-74 MINUTES Bhargavi Ramesh PA-C [address] [place] [address] Referral ID Status Reason Start Date Expiration Date V isits Requested Visits Authorized [id number] Closed PCP Requested Referral 01/18/2022 10/19/2022 1 [...] HIGH MDM 60-74 MINUTES Bhargavi Ramesh PA-C [address] [place] [address] Referral ID Status Reason Start Date Expiration Date V isits Requested Visits Authorized [id number] Closed PCP Requested Referral 04/16/2022 01/16/2023 1 [...] Allergy Diagnoses Allergic reaction, subsequent encounter Procedures TX OFFICE/OUTPATIENT NEW HIGH MDM 60 MINUTES Cas Dowell MD [address] [place] [address] Christy Painting MD [address] [facility] [address] [place] [address] Referral ID Status Reason Start Date Expiration Date Visits Requested Visits Authorized [id number] Pending Review Specialty Services Required 09/26/2023 03/24/2024 1 1 Reason Comments Well Women Visit Specialty Diagnoses / Procedures Referred By Sabas harris Referred To Contact Diagnoses Moderate asthma without complication, unspecified whether persistent Procedures Full PFT Study With Bronchodilator Nabor Yancey, PROMOTIONS PRODUCER - FOOD EDITOR [address] [facility] [address] [place] [address] Referral ID Status Reason Start Date Expiration Date V isits Requested Visits Authorized [id number] Not Required - RTA 12/04/2023 12/03/2024 1 [...] having trouble getting insurance to cover medications. Reason Comments Skin Check Follow-up Reason Comments Follow-up 6m Reason Onset Date Comments Med Refill 08/11/2024 Reason Onset Date Comments Med Refill 09/15/2024 Reason Comments Rash Sinusitis Pressure feels like something blocking sinus Ear Drainage Arm Injury Right arm pain with swelling and pain into elbow Reason Comments Qualitative platelet disorder 1 year fol low up Reason Onset Date Comments Med Refill 05/18/2024 Ordered Prescriptions (unrec ognized section and content) [...] section and content) DATE CREATED AUTHOR [facility]/08/2021 [facility] DATE CREATED AUTHOR AUTHOR'S ORGANIZ ATION 04/26/2021 [facility] DATE CREATED AUTHOR AUTHOR'S ORGANIZ ATION 07/27/2021 [facility] DATE CREATED AUTHOR AUTHOR'S ORGANIZ ATION 12/22/2021 [facility] DATE CREATED AUTHOR AUTHOR'S ORGANIZ ATION 04/07/2022 [facility] DATE CREATED AUTHOR AUTHOR'S ORGANIZ ATION 06/17/2022 [facility] DATE CREATED AUTHOR AUTHOR'S ORGANIZ ATION 01/05/2024 [facility] DATE CREATED AUTHOR AUTHOR'S ORGANIZ ATION 02/07/2024 [place] DATE CREATED AUTHOR AUTHOR'S ORGANIZ ATION 05/11/2024 [facility] DATE CREATED AUTHOR AUTHOR'S ORGANIZ ATION 07/04/2024 [facility] DATE CREATED AUTHOR AUTHOR'S ORGANIZ ATION 08/25/2024 [facility] DATE CREATED AUTHOR AUTHOR'S ORGANIZ ATION 09/10/2024 [facility] DATE CREATED AUTHOR AUTHOR'S ORGANIZ ATION 09/27/2024 [facility] DATE CREATED AUTHOR AUTHOR'S ORGANIZ ATION 09/29/2024 [facility] DATE CREATED AUTHOR AUTHOR'S ORGANIZ ATION 10/01/2024 [facility] DATE CREATED AUTHOR AUTHOR'S ORGANIZ ATION 10/07/[address] [facility] Care Teams (unrecognized sec tion and content) Ocular Pathologist Relationship Specialty Start Date End Date Cas Dowell MD PCP - General 09/04/11 Ocular Pathologist Relationship Specialty Start Date End Date Cas Dowell MD PCP - General 09/04/11 Ocular Pathologist Relationship Specialty Start Date End Date Cas Dowell PCP - General Family Practice 02/20/14 Ocular Pathologist Relationship Specialty Start Date End Date Cas Dowell MD PCP - General 09/04/11 Ocular Pathologist Relationship Specialty Start Date End Date Cas Dowell PCP - General Family Practice 02/20/14 Ocular Pathologist Relationship Specialty Start Date End Date Cas Dowell PCP - General Family Practice 02/20/14 Ocular Pathologist Relationship Specialty Start Date End Date Cas Dowell PCP - General Family Practice 02/20/14 Ocular Pathologist Relationship Specialty Start Date End Date Cas Dowell PCP - General Family Practice 02/20/14 Ocular Pathologist Relationship Specialty Start Date End Date Cas Dowell PCP - General Family Practice 02/20/14 Ocular Pathologist Relationship Specialty Start Date End Date Cas Dowell PCP - General Family Practice 02/20/14 Ocular Pathologist Relationship Specialty Start Date End Date NadelCas almonte PCP - General Family Practice 02/20/14 Ocular Pathologist Relationship Specialty Start Date End Date Cas Dowell MD PCP - General 09/04/11 Ocular Pathologist Relationship Specialty Start Date End Date NadereCas almonte PCP - General Family Practice 02/20/14 Ocular Pathologist Relationship Specialty Start Date End Date CoreyelCas almonte PCP - General Family Practice 02/20/14 Ocular Pathologist Relationship Specialty Start Date End Date CoreyelCas almonte PCP - General Family Practice 02/20/14 Ocular Pathologist Relationship Specialty Start Date End Date NadereCas almonte PCP - General Family Practice 02/20/14 Ocular Pathologist Relationship Specialty Start Date End Date NadereCas almonte PCP - General Family Practice 02/20/14 Ocular Pathologist Relationship Specialty Start Date End Date NadelCas almonte PCP - General Family Practice 02/20/14 Ocular Pathologist Relationship Specialty Start Date End Date NadereCas almonte PCP - General Family Practice 02/20/14 Ocular Pathologist Relationship Specialty Start Date End Date NadelCas almonte PCP - General Family Practice 02/20/14 Sai Perez MD [address] [place] [address] Primary Staff Physician Cardiology 07/21/21 Ocular Pathologist Relationship Specialty Start Date End Date Cas Dowell PCP - General Family Practice 02/20/14 Sai Perez MD [address] [place] [address] Primary Staff Physician Cardiology 07/21/21 Ocular Pathologist Relationship Specialty Start Date End Date Cas Dowell PCP - General Family Practice 02/20/14 Sai Perez MD [address] [place] [address] Primary Staff Physician Cardiology 07/21/21 Ocular Pathologist Relationship Specialty Start Date End Date Cas Dowell PCP - General Family Practice 02/20/14 Ocular Pathologist Relationship Specialty Start Date End Date Cas Dowell PCP - General Family Practice 02/20/14 Sai Perez MD [address] [place] [address] Primary Staff Physician Cardiology 07/21/21 Ocular Pathologist Relationship Specialty Start Date End Date Cas Dowell PCP - General Family Practice 02/20/14 Sai Perez MD [address] [place] [address] Primary Staff Physician Cardiology 07/21/21 Ocular Pathologist Relationship Specialty Start Date End Date Cas Dowell PCP - General Family Practice 02/20/14 Sai Perez MD [address] [place] [address] Primary Staff Physician Cardiology 07/21/[address] [place] [address] Referring FILM FLAT INSPECTOR 08/05/21 Ocular Pathologist Relationship Specialty Start Date End Date Cas Dowell PCP - General Family Practice 02/20/14 Sai Perez MD [address] [place] [address] Primary Staff Physician Cardiology 07/21/[address], [id number] Referring FILM FLAT INSPECTOR 08/05/21 Ocular Pathologist Relationship Specialty Start Date End Date Cas Dowell PCP - General Family Practice 02/20/14 Sai Perez MD [address] [place] [address] Primary Staff Physician Cardiology 07/21/[address], [id number] Referring FILM FLAT INSPECTOR 08/05/21 Ocular Pathologist Relationship Specialty Start Date End Date Cas Dowell PCP - General Family Practice 02/20/14 Sai Perez MD [address] [place] [address] Primary Staff Physician Cardiology 07/21/[address] [place] [address] Referring FILM FLAT INSPECTOR 08/05/21 Ocular Pathologist Relationship Specialty Start Date End Date Cas Dowell PCP - General Family Practice 02/20/14 Sai Perez MD [address] [place] [address] Primary Staff Physician Cardiology 07/21/21 Rubens Tim [address] [employer] [place] [address] Referring FILM FLAT INSPECTOR 08/05/21 Ocular Pathologist Relationship Specialty Start Date End Date Cas Dowell PCP - [facility] Practice 02/20/14 Sai Perez MD [address] [place] [address] Primary Staff Physician Cardiology 07/21/21 Rubens Tim [address] [facility] [place] [address] Referring FILM FLAT INSPECTOR 08/05/21 Ocular Pathologist Relationship Specialty Start Date End Date Cas Dowell PCP - General Family Practice 02/20/14 Sai Perez MD [address] [place] [address] Primary Staff Physician Cardiology 07/21/21 Rubens Tim [address] [facility] [address] [place], [place] [id number] Referring FILM FLAT INSPECTOR 08/05/21 Ocular Pathologist Relationship Specialty Start Date End Date Cas Dowell PCP - General Family Practice 02/20/14 Sai Perez MD [address] [place] [address] Primary Staff Physician Cardiology 07/21/21 Rubens Tim, DO [address] [place] [address] Referring FILM FLAT INSPECTOR 08/05/21 Ocular Pathologist Relationship Specialty Start Date End Date Cas Dowell PCP - General Family Practice 02/20/14 Sai Perez MD [address] [place] [address] Primary Staff Physician Cardiology 07/21/21 Rubens Tim, DO [address] [place], [id number] Referring FILM FLAT INSPECTOR 08/05/21 Ocular Pathologist Relationship Specialty Start Date End Date Cas Dowell PCP - General Family Practice 02/20/14 Sai Perez MD [address] [place] [address] Primary Staff Physician Cardiology 07/21/21 Rubens Tim, DO [address] [place], [id number] Referring FILM FLAT INSPECTOR 08/05/21 Ocular Pathologist Relationship Specialty Start Date End Date Cas Dowell PCP - General Family Practice 02/20/14 Sai Perez MD [address] [place] [address] Primary Staff Physician Cardiology 07/21/21 Rubens Tim, DO [address] [place], [place] [id number] Referring FILM FLAT INSPECTOR 08/05/21 Ocular Pathologist Relationship Specialty Start Date End Date Cas Dowell MD PCP - General 09/04/11 Ocular Pathologist Relationship Specialty Start Date End Date Cas Dowell PCP - General Family Practice 02/20/14 Sai Perez MD [address] [place] [address] Primary Staff Physician Cardiology 07/21/21 Rubens Tim, DO [address] [place], [id number] Referring FILM FLAT INSPECTOR 08/05/21 Ocular Pathologist Relationship Specialty Start Date End Date Cas Dowell PCP - General Family Practice 02/20/14 Sai Perez MD [address] [place] [address] Primary Staff Physician Cardiology 07/21/21 Rubens Tim, DO [address] [place] [address] Referring FILM FLAT INSPECTOR 08/05/21 Ocular Pathologist Relationship Specialty Start Date End Date Cas Dowell PCP - General Family Practice 02/20/14 Sai Perez MD [address] [place] [address] Primary Staff Physician Cardiology 07/21/21 Rubens Tim, DO [address] [place] [address] Referring FILM FLAT INSPECTOR 08/05/21 Ocular Pathologist Relationship Specialty Start Date End Date Cas Dowell PCP - General Family Practice 02/20/14 Sai Perez MD [address] [place] [address] Primary Staff Physician Cardiology 07/21/21 Rubens Tim, DO [address] [place], [id number] Referring FILM FLAT INSPECTOR 08/05/21 Ocular Pathologist Relationship Specialty Start Date End Date Cas Dowell PCP - General Family Practice 02/20/14 Sai Perez MD [address] [place] [address] Primary Staff Physician Cardiology 07/21/21 Rubens Tim, DO [address] [place], [id number] Referring FILM FLAT INSPECTOR 08/05/21 Ocular Pathologist Relationship Specialty Start Date End Date Cas Dowell PCP - General Family Practice 02/20/14 Sai Perez MD [address] [place] [address] Primary Staff Physician Cardiology 07/21/21 Rubens Tim, DO [address] [place] [address] Referring FILM FLAT INSPECTOR 08/05/21 Ocular Pathologist Relationship Specialty Start Date End Date Cas Dowell PCP - General Family Practice 02/20/14 Sai Perez MD [address] [place] [address] Primary Staff Physician Cardiology 07/21/21 Rubens Tim, DO [address] [place] [address] Referring FILM FLAT INSPECTOR 08/05/21 Ocular Pathologist Relationship Specialty Start Date End Date Cas Dowell PCP - General Family Practice 02/20/14 Sai Perez MD [address] [place] [address] Primary Staff Physician Cardiology 07/21/21 Rubens Tim, DO [address] [place], [id number] Referring FILM FLAT INSPECTOR 08/05/21 Ocular Pathologist Relationship Specialty Start Date End Date Cas Dowell PCP - General Family Practice 02/20/14 Sai Perez MD [address] [place] [address] Primary Staff Physician Cardiology 07/21/21 Rubens Tim, DO [address] [place], [id number] Referring FILM FLAT INSPECTOR 08/05/21 Ocular Pathologist Relationship Specialty Start Date End Date Cas Dowell PCP - General Family Practice 02/20/14 Sai Perez MD [address] [place] [address] Primary Staff Physician Cardiology 07/21/21 Rubens Tim, DO [address] [place], [place] [address] Referring FILM FLAT INSPECTOR 08/05/21 Ocular Pathologist Relationship Specialty Start Date End Date Cas Dowell PCP - General Family Practice 02/20/14 Sai Perez MD [address] [place] [address] Primary Staff Physician Cardiology 07/21/21 Rubens Tim, DO [address] [place] [address] Referring FILM FLAT INSPECTOR 08/05/21 Ocular Pathologist Relationship Specialty Start Date End Date Cas Dowell PCP - General Family Practice 02/20/14 Sai Perez MD [address] [place] [address] Primary Staff Physician Cardiology 07/21/21 Rubens Tim, DO [address] [place], [id number] Referring FILM FLAT INSPECTOR 08/05/21 Ocular Pathologist Relationship Specialty Start Date End Date Cas Dowell PCP - General Family Medicine 02/20/14 Sai Perez MD [address] [place] [address] Primary Staff Physician Cardiology 07/21/21 Rubens Tim, DO [address] [place] [address] Referring FILM FLAT INSPECTOR 08/05/21 Ocular Pathologist Relationship Specialty Start Date End Date Cas Dowell PCP - General Family Medicine 02/20/14 Sai Perez MD [address] [place] [address] Primary Staff Physician Cardiology 07/21/21 Rubens Tim, DO [address] [place] [address] Referring FILM FLAT INSPECTOR 08/05/21 Ocular Pathologist Relationship Specialty Start Date End Date Cas Dowell PCP - General Family Medicine 02/20/14 Sai Perez MD [address] [place] [address] Primary Staff Physician Cardiology 07/21/21 Rubens Tim, DO [address] [place], [place] [address] Referring FILM FLAT INSPECTOR 08/05/21 Ocular Pathologist Relationship Specialty Start Date End Date Cas Dowell PCP - General Family Medicine 02/20/14 Sai Perez MD [address] [place] [address] Primary Staff Physician Cardiology 07/21/21 Rubens Tim, DO [address] [place], [id number] Referring FILM FLAT INSPECTOR 08/05/21 Ocular Pathologist Relationship Specialty Start Date End Date Cas Dowell PCP - General Family Medicine 02/20/14 Sai Perez MD [address] [place] [address] Primary Staff Physician Cardiology 07/21/21 Rubens Tim, DO [address] [place] [address] Referring FILM FLAT INSPECTOR 08/05/21 Ocular Pathologist Relationship Specialty Start Date End Date Cas Dowell PCP - General Family Medicine 02/20/14 Sai Perez MD [address] [place] [address] Primary Staff Physician Cardiology 07/21/21 Rubens Tim, DO [address] [place] [address] Referring FILM FLAT INSPECTOR 08/05/21 Ocular Pathologist Relationship Specialty Start Date End Date Cas Dowell PCP - General Family Medicine 02/20/14 Sai Perez MD [address] [place] [address] Primary Staff Physician Cardiology 07/21/21 Rubens Tim, DO [address] [place] [address] Referring FILM FLAT INSPECTOR 08/05/21 Ocular Pathologist Relationship Specialty Start Date End Date Cas Dowell PCP - General Family Medicine 02/20/14 Sai Perez MD [address] [place] [address] Primary Staff Physician Cardiology 07/21/21 Rubens Tim, DO [address] [place] [address] Referring FILM FLAT INSPECTOR 08/05/21 Ocular Pathologist Relationship Specialty Start Date End Date Cas Dowell PCP - General Family Medicine 02/20/14 Sai Perez MD [address] [place] [address] Primary Staff Physician Cardiology 07/21/21 Rubens Tim, [address] [place] [address] Referring FILM FLAT INSPECTOR 08/05/21 Ocular Pathologist Relationship Specialty Start Date End Date Cas Dowell PCP - General Family Medicine 02/20/14 Sai Perez MD [address] [place] [address] Primary Staff Physician Cardiology 07/21/21 Rubens Tim, DO [address] [facility] [address] [place], [id number] Referring FILM FLAT INSPECTOR 08/05/21 Ocular Pathologist Relationship Specialty Start Date End Date Cas Dowell PCP - General Family Medicine 02/20/14 Sai Perez MD [address] [place] [address] Primary Staff Physician Cardiology 07/21/21 Rubens Tim, DO [address] [place] [address] Referring FILM FLAT INSPECTOR 08/05/21 Ocular Pathologist Relationship Specialty Start Date End Date Cas Dowell PCP - General Family Medicine 02/20/14 Sai Perez MD [address] [place] [address] Primary Staff Physician Cardiology 07/21/21 Rubens Tim, DO [address] [place] [address] Referring FILM FLAT INSPECTOR 08/05/21 Ocular Pathologist Relationship Specialty Start Date End Date Cas Dowell PCP - General Family Medicine 02/20/14 Sai Perez MD [address] [place] [address] Primary Staff Physician Cardiology 07/21/21 Rubens Tim, DO [address] [place], [id number] Referring FILM FLAT INSPECTOR 08/05/21 Ocular Pathologist Relationship Specialty Start Date End Date Cas Dowell MD PCP - General 09/04/11 Ocular Pathologist Relationship Specialty Start Date End Date Cas Dowell PCP - General Family Medicine 02/20/14 Sai Perez MD [address] [place] [address] Primary Staff Physician Cardiology 07/21/21 Rubens Tim, DO [address] [place], [id number] Referring FILM FLAT INSPECTOR 08/05/21 Ocular Pathologist Relationship Specialty Start Date End Date Csa Dowell PCP - General Family Medicine 02/20/14 Sai Perez MD [address] [place] [address] Primary Staff Physician Cardiology 07/21/21 Rubens Tim, DO [address] [place] [address] Referring FILM FLAT INSPECTOR 08/05/21 Ocular Pathologist Relationship Specialty Start Date End Date Cas Dowell PCP - General Family Medicine 02/20/14 Sai Perez MD [address] [place] [address] Primary Staff Physician Cardiology 07/21/21 Rubens Tim, DO [address] [place] [address] Referring FILM FLAT INSPECTOR 08/05/21 Ocular Pathologist Relationship Specialty Start Date End Date Cas Dowell PCP - General Family Medicine 02/20/14 Sai Perez MD [address] [place] [address] Primary Staff Physician Cardiology 07/21/21 Rubens Tim, DO [address] [place] [address] Referring FILM FLAT INSPECTOR 08/05/21 Ocular Pathologist Relationship Specialty Start Date End Date Cas Dowell PCP - General [facility] Medicine 02/20/14 Sai Perez MD [address] [place] [address] Primary Staff Physician Cardiology 07/21/21 Rubens Tim, DO [address] [place] [address] Referring FILM FLAT INSPECTOR 08/05/21 Ocular Pathologist Relationship Specialty Start Date End Date Cas Dowell PCP - General Family Medicine 02/20/14 Sai Perez MD [address] [place] [address] Primary Staff Physician Cardiology 07/21/21 Rubens Tim, DO [address] [place], [place] [address] Referring FILM FLAT INSPECTOR 08/05/21 Ocular Pathologist Relationship Specialty Start Date End Date Cas Dowell PCP - General Family Medicine 02/20/14 Sai Perez MD [address] [place] [address] Primary Staff Physician Cardiology 07/21/21 Rubens Tim, DO [address] [place], [place] [address] Referring FILM FLAT INSPECTOR 08/05/21 Ocular Pathologist Relationship Specialty Start Date End Date Cas Dowell PCP - General Family Medicine 02/20/14 Sai Perez MD [address] [place] [address] Primary Staff Physician Cardiology 07/21/21 Rubens Tim, DO [address] [place], [id number] Referring FILM FLAT INSPECTOR 08/05/21 Ocular Pathologist Relationship Specialty Start Date End Date Cas Dowell PCP - General Family Medicine 02/20/14 Sai Perez MD [address] [place] [address] Primary Staff Physician Cardiology 07/21/21 Rubens Tim, [address] [facility] [place] [address] Referring FILM FLAT INSPECTOR 08/05/21 Ocular Pathologist Relationship Specialty Start Date End Date Cas Dowell PCP - General Family Medicine 02/20/14 Sai Perez MD [address] [place], [place] [address] Primary Staff Physician Cardiology 07/21/21 Rubens Tim DO [address] [place], [place] [address] [address] Referring FILM FLAT INSPECTOR 08/05/21 Ocular Pathologist Relationship Specialty Start Date End Date Cas Dowell MD PCP - General Family Medicine 12/06/22 Ocular Pathologist Relationship Specialty Start Date End Date Cas Dowell PCP - General Family Medicine 02/20/14 Sai Perez MD [address] [place] [address] Primary Staff Physician Cardiology 07/21/21 Rubens Tim DO [facility] [place] [address] Referring Bench Repair Technician 08/05/21 Ocular Pathologist Relationship Specialty Start Date End Date Cas Dowell PCP - General Family Medicine 02/20/14 Sai Perez MD [address] [place] [address] Primary Staff Physician Cardiology 07/21/21 Rubens Tim DO [address] [place] [address] [place] [address] Referring Bench Repair Technician 08/05/21 Ocular Pathologist Relationship Specialty Start Date End Date Cas Dowell MD [address] [place] [phone] PCP - General Family Medicine 04/09/23 Ocular Pathologist Relationship Specialty Start Date End Date Cas Dowell MD [address] [place] [address] PCP - General Family Medicine 04/09/23 Ocular Pathologist Relationship Specialty Start Date End Date Cas Dowell MD [address] [place] [phone] PCP - General Family Medicine 04/09/23 Ocular Pathologist Relationship Specialty Start Date End Date Cas Dowell MD [address] [place] [address] PCP - General Family Medicine 04/09/23 Ocular Pathologist Relationship Specialty Start Date End Date Cas Dowell MD [address] [place] [phone] PCP - General Family Medicine 04/09/23 Ocular Pathologist Relationship Specialty Start Date End Date Cas Dowell MD PCP - General 09/04/11 Ocular Pathologist Relationship Specialty Start Date End Date Cas Dowell MD PCP - General 09/04/11 Ocular Pathologist Relationship Specialty Start Date End Date Cas Dowell MD [address] [place] [phone] PCP - General Family Medicine 04/09/23 Cas Dowell MD [address] [place] [address] PCP - [facility] 11/06/23 Ocular Pathologist Relationship Specialty Start Date End Date Cas Dowell MD [address] [place] [address] PCP - General Family Medicine 04/09/23 Cas Dowell MD [address] [place] [address] PCP - [facility] 06/06/23 Ocular Pathologist Relationship Specialty Start Date End Date Cas Dowell MD [address] [place] [address] PCP - General Family Medicine 04/09/23 Cas Dowell MD [address] [place] [address] PCP - [facility] 06/06/23 Ocular Pathologist Relationship Specialty Start Date End Date Cas Dowell MD [address] [place] [address] PCP - General Family Medicine 04/09/23 Cas Dowell MD [address] [place] [address] PCP - [facility] 06/06/23 Ocular Pathologist Relationship Specialty Start Date End Date Cas Dowell MD [address] [place] [address] PCP - General Family Medicine 04/09/23 Cas Dowell MD [address] [place] [address] PCP - [facility] 06/06/23 Ocular Pathologist Relationship Specialty Start Date End Date Cas Dowell MD [address] [place] [address] PCP - General Family Medicine 04/09/23 Cas Dowell MD [address] [place] [address] PCP - [facility] 06/06/23 Ocular Pathologist Relationship Specialty Start Date End Date Cas Dowell MD [address] [place] [address] PCP - General Family Medicine 04/09/23 Cas Dowell MD [address] [place] [address] PCP - [facility] 11/06/23 Ocular Pathologist Relationship Specialty Start Date End Date Cas Dowell MD [address] [place] [address] PCP - General Family Medicine 04/09/23 Csa Dowell MD [address] [place] [address] PCP - [facility] 11/06/23 Ocular Pathologist Relationship Specialty Start Date End Date Cas Dowell MD [address] [place] [address] PCP - General Family Medicine 04/09/23 Cas Dowell MD [address] [place] [address] PCP - [facility] 11/06/23 Ocular Pathologist Relationship Specialty Start Date End Date Cas Dowell MD [address] [place] [address] PCP - General Family Medicine 04/09/23 Cas Dowell MD [address] [place] [address] PCP - [facility] 11/06/23 Ocular Pathologist Relationship Specialty Start Date End Date Cas Dowell MD PCP - General Family Medicine 11/18/20 Ocular Pathologist Relationship Specialty Start Date End Date Cas Dowell MD [address] [place] [address] PCP - General Family Medicine 04/09/23 Cas Dowell MD [address] [place] [address] PCP [facility] 11/06/23 Ocular Pathologist Relationship Specialty Start Date End Date Cas Dowell MD [address] [place] [address] PCP - General Family Medicine 04/09/23 Cas Dowell MD [address] [place] [address] PCP [facility] 11/06/23 Ocular Pathologist Relationship Specialty Start Date End Date Csa Dowell MD [address] [facility] [place] [address] PCP - General Family Medicine 11/18/20 Ocular Pathologist Relationship Specialty Start Date End Date Cas Dowell MD [address] [place] [address] PCP - General Family Medicine 11/18/20 Ocular Pathologist Relationship Specialty Start Date End Date Cas Dowell MD [address] [place] [address] PCP - General Family Medicine 11/18/20 Ocular Pathologist Relationship Specialty Start Date End Date Cas Dowell MD [address] [place] [address] PCP - General Family Medicine 11/18/20 Ocular Pathologist Relationship Specialty Start Date End Date Cas Dowell MD [address] [place] [address] PCP - General Family Medicine 11/18/20 Ocular Pathologist Relationship Specialty Start Date End Date Cas Dowell MD PCP - General [facility] Medicine 11/18/20 Ocular Pathologist Relationship Specialty Start Date End Date Cas Dowell MD PCP - General [facility] Medicine 11/18/20 Ocular Pathologist Relationship Specialty Start Date End Date Cas Dowell MD PCP - [facility] Medicine 11/18/20 Ocular Pathologist Relationship Specialty Start Date End Date Cas Dowell MD PCP - [facility] 11/18/20 Ocular Pathologist Relationship Specialty Start Date End Date Cas Dowell MD PCP - [facility] Medicine 11/18/20 Ocular Pathologist Relationship Specialty Start Date End Date Cas Dowell MD [address] [place] [address] PCP - General Family Medicine 04/09/23 Cas Dowell MD [address] [place] [address] PCP - [facility] 11/06/23 Ocular Pathologist Relationship Specialty Start Date End Date Cas Dowell MD [address] [place] [address] PCP - General Family Medicine 04/09/23 Cas Dowell MD [address] [place] [address] PCP - [facility] 11/06/23 Ocular Pathologist Relationship Specialty Start Date End Date Cas Dowell MD PCP - General Family Medicine 11/18/20 Ocular Pathologist Relationship Specialty Start Date End Date Cas Dowell MD [address] [place] [address] PCP - General Family Medicine 04/09/23 Ocular Pathologist Relationship Specialty Start Date End Date Cas Dowell MD [address] [place] [address] PCP - General Family Medicine 04/09/23 Ocular Pathologist Relationship Specialty Start Date End Date Cas Dowell MD [address] [place] [address] PCP - General Family Medicine 04/09/23 Ocular Pathologist Relationship Specialty Start Date End Date Cas Dowell MD [address] [place] [address] PCP - General Family Medicine 04/09/23 Ocular Pathologist Relationship Specialty Start Date End Date Cas Dowell MD [address] [place] [address] PCP - General Family Medicine 04/09/23 Ocular Pathologist Relationship Specialty Start Date End Date Cas Dowell MD PCP - General Family Medicine 11/18/20 Ocular Pathologist Relationship Specialty Start Date End Date Cas Dowell MD PCP - General 09/04/11 Team Status: Active Member Role Status Dates Cas Dowell MD Primary Care Provider Active Team Status: Inactive Member Role Status Dates Cas Dowell MD Primary Care Provider Active S tart: September 08, 2024 End: September 08, 2024 JULI Botello RN MODEL [employer] ARTIST-C Attending Provider Active Start: September 08 End: September 08, 2024 Team Status: Active Member Role Status Dates Cas Dowell MD Primary Care Provider Active S tart: September 08, 2024 JULI Botello RN MODEL [employer] ARTIST-C Attending Provider Active Start: September 08 Ocular Pathologist Relationship Specialty Start Date End Date Cas Dowell MD PCP - General Family Medicine 11/18/20 Ocular Pathologist Relationship Specialty Start Date End Date Cas Dowell MD [address] [place] [address] PCP - General Family Medicine 04/09/23 Ocular Pathologist Relationship Specialty Start Date End Date Cas Dowell MD [address] [place] [address] PCP - General Family Medicine 04/09/23 Ocular Pathologist Relationship Specialty Start Date End Date Cas Dowell MD [address] [place] [address] PCP - General Family Medicine 04/09/23 Ocular Pathologist Relationship Specialty Start Date End Date Cas Dowell MD PCP - General Family Medicine 02/20/14 Sai Perez MD [address] [place] [address] Primary Staff Physician Cardiology 07/21/21 Rubens Tim DO [address] [place] [address] Referring Bench Repair Technician 08/05/21 Ocular Pathologist Relationship Specialty Start Date End Date Cas Dowell MD [address] [place] [address] PCP - General Family Medicine 04/09/23 Source Comments (unrecognize d section and content) In the event this informatio n is protected by the Federal Confidentiality of Alcohol and Drug Abuse Patient Records regulations: The Federal rules restrict any use of the information to criminally investigate or prosecute any alcohol or drug abuse patient.[facility] the event this information is protected by the Federal Confidentiality of Alcohol and Drug Abuse Patient Records regulations: The Federal rules restrict any use of the information to criminally investigate or prosecute any alcohol or drug abuse patient.[facility] HospitalIn the event this information is protected by the Federal Confidentiality of Alcohol and Drug Abuse Patient Records regulations: The Federal rules restrict any use of the information to criminally investigate or prosecute any alcohol or drug abuse patient.[facility] HospitalIn the event this information is protected by the Federal Confidentiality of Alcohol and Drug Abuse Patient Records regulations: The Federal rules restrict any use of the information to criminally investigate or prosecute any alcohol or drug abuse patient.[facility] HospitalIn the event this information is protected by the Federal Confidentiality of Alcohol and Drug Abuse Patient Records regulations: The Federal rules restrict any use of the information to criminally investigate or prosecute any alcohol or drug abuse patient.[facility] HospitalIn the event this information is protected by the Federal Confidentiality of Alcohol and Drug Abuse Patient Records regulations: The Federal rules restrict any use of the information to criminally investigate or prosecute any alcohol or drug abuse patient.[facility] HospitalIn the event this information is protected by the Federal Confidentiality of Alcohol and Drug Abuse Patient Records regulations: The Federal rules restrict any use of the information to criminally investigate or prosecute any alcohol or drug abuse patient.[facility] HospitalIn the event this information is protected by the Federal Confidentiality of Alcohol and Drug Abuse Patient Records regulations: The Federal rules restrict any use of the information to criminally investigate or prosecute any alcohol or drug abuse patient.[facility] HospitalIn the event this information is protected by the Federal Confidentiality of Alcohol and Drug Abuse Patient Records regulations: The Federal rules restrict any use of the information to criminally investigate or prosecute any alcohol or drug abuse patient.[facility] HospitalIn the event this information is protected by the Federal Confidentiality of Alcohol and Drug Abuse Patient Records regulations: The Federal rules restrict any use of the information to criminally investigate or prosecute any alcohol or drug abuse patient.[facility] HospitalIn the event this information is protected by the Federal Confidentiality of Alcohol and Drug Abuse Patient Records regulations: The Federal rules restrict any use of the information to criminally investigate or prosecute any alcohol or drug abuse patient.[facility] HospitalIn the event this information is protected by the Federal Confidentiality of Alcohol and Drug Abuse Patient Records regulations: The Federal rules restrict any use of the information to criminally investigate or prosecute any alcohol or drug abuse patient.[facility] HospitalIn the event this information is protected by the Federal Confidentiality of Alcohol and Drug Abuse Patient Records regulations: The Federal rules restrict any use of the information to criminally investigate or prosecute any alcohol or drug abuse patient.[facility] HospitalIn the event this information is protected by the Federal Confidentiality of Alcohol and Drug Abuse Patient Records regulations: The Federal rules restrict any use of the information to criminally investigate or prosecute any alcohol or drug abuse patient.[facility] HospitalIn the event this information is protected by the Federal Confidentiality of Alcohol and Drug Abuse Patient Records regulations: The Federal rules restrict any use of the information to criminally investigate or prosecute any alcohol or drug abuse patient.[facility] HospitalIn the event this information is protected by the Federal Confidentiality of Alcohol and Drug Abuse Patient Records regulations: The Federal rules restrict any use of the information to criminally investigate or prosecute any alcohol or drug abuse patient.[facility] HospitalIn the event this information is protected by the Federal Confidentiality of Alcohol and Drug Abuse Patient Records regulations: The Federal rules restrict any use of the information to criminally investigate or prosecute any alcohol or drug abuse patient.[facility] HospitalIn the event this information is protected by the Federal Confidentiality of Alcohol and Drug Abuse Patient Records regulations: The Federal rules restrict any use of the information to criminally investigate or prosecute any alcohol or drug abuse patient.[facility] HospitalIn the event this information is protected by the Federal Confidentiality of Alcohol and Drug Abuse Patient Records regulations: The Federal rules restrict any use of the information to criminally investigate or prosecute any alcohol or drug abuse patient.[facility] HospitalIn the event this information is protected by the Federal Confidentiality of Alcohol and Drug Abuse Patient Records regulations: The Federal rules restrict any use of the information to criminally investigate or prosecute any alcohol or drug abuse patient.[facility] HospitalIn the event this information is protected by the Federal Confidentiality of Alcohol and Drug Abuse Patient Records regulations: The Federal rules restrict any use of the information to criminally investigate or prosecute any alcohol or drug abuse patient.[facility] HospitalIn the event this information is protected by the Federal Confidentiality of Alcohol and Drug Abuse Patient Records regulations: The Federal rules restrict any use of the information to criminally investigate or prosecute any alcohol or drug abuse patient.[facility] HospitalIn the event this information is protected by the Federal Confidentiality of Alcohol and Drug Abuse Patient Records regulations: The Federal rules restrict any use of the information to criminally investigate or prosecute any alcohol or drug abuse patient.[facility] HospitalIn the event this information is protected by the Federal Confidentiality of Alcohol and Drug Abuse Patient Records regulations: The Federal rules restrict any use of the information to criminally investigate or prosecute any alcohol or drug abuse patient.[facility] HospitalIn the event this information is protected by the Federal Confidentiality of Alcohol and Drug Abuse Patient Records regulations: The Federal rules restrict any use of the information to criminally investigate or prosecute any alcohol or drug abuse patient.[facility] HospitalIn the event this information is protected by the Federal Confidentiality of Alcohol and Drug Abuse Patient Records regulations: The Federal rules restrict any use of the information to criminally investigate or prosecute any alcohol or drug abuse patient.[facility] HospitalIn the event this information is protected by the Federal Confidentiality of Alcohol and Drug Abuse Patient Records regulations: The Federal rules restrict any use of the information to criminally investigate or prosecute any alcohol or drug abuse patient.[facility] HospitalIn the event this information is protected by the Federal Confidentiality of Alcohol and Drug Abuse Patient Records regulations: The Federal rules restrict any use of the information to criminally investigate or prosecute any alcohol or drug abuse patient.[facility] HospitalIn the event this information is protected by the Federal Confidentiality of Alcohol and Drug Abuse Patient Records regulations: The Federal rules restrict any use of the information to criminally investigate or prosecute any alcohol or drug abuse patient.[facility] HospitalIn the event this information is protected by the Federal Confidentiality of Alcohol and Drug Abuse Patient Records regulations: The Federal rules restrict any use of the information to criminally investigate or prosecute any alcohol or drug abuse patient.[facility] HospitalIn the event this information is protected by the Federal Confidentiality of Alcohol and Drug Abuse Patient Records regulations: The Federal rules restrict any use of the information to criminally investigate or prosecute any alcohol or drug abuse patient.[facility] HospitalIn the event this information is protected by the Federal Confidentiality of Alcohol and Drug Abuse Patient Records regulations: The Federal rules restrict any use of the information to criminally investigate or prosecute any alcohol or drug abuse patient.[facility] HospitalIn the event this information is protected by the Federal Confidentiality of Alcohol and Drug Abuse Patient Records regulations: The Federal rules restrict any use of the information to criminally investigate or prosecute any alcohol or drug abuse patient.[facility] HospitalIn the event this information is protected by the Federal Confidentiality of Alcohol and Drug Abuse Patient Records regulations: The Federal rules restrict any use of the information to criminally investigate or prosecute any alcohol or drug abuse patient.[facility] HospitalIn the event this information is protected by the Federal Confidentiality of Alcohol and Drug Abuse Patient Records regulations: The Federal rules restrict any use of the information to criminally investigate or prosecute any alcohol or drug abuse patient.[facility] HospitalIn the event this information is protected by the Federal Confidentiality of Alcohol and Drug Abuse Patient Records regulations: The Federal rules restrict any use of the information to criminally investigate or prosecute any alcohol or drug abuse patient.[facility] HospitalIn the event this information is protected by the Federal Confidentiality of Alcohol and Drug Abuse Patient Records regulations: The Federal rules restrict any use of the information to criminally investigate or prosecute any alcohol or drug abuse patient.[facility] HospitalIn the event this information is protected by the Federal Confidentiality of Alcohol and Drug Abuse Patient Records regulations: The Federal rules restrict any use of the information to criminally investigate or prosecute any alcohol or drug abuse patient.[facility] HospitalIn the event this information is protected by the Federal Confidentiality of Alcohol and Drug Abuse Patient Records regulations: The Federal rules restrict any use of the information to criminally investigate or prosecute any alcohol or drug abuse patient.[facility] HospitalIn the event this information is protected by the Federal Confidentiality of Alcohol and Drug Abuse Patient Records regulations: The Federal rules restrict any use of the information to criminally investigate or prosecute any alcohol or drug abuse patient.[facility] HospitalIn the event this information is protected by the Federal Confidentiality of Alcohol and Drug Abuse Patient Records regulations: The Federal rules restrict any use of the information to criminally investigate or prosecute any alcohol or drug abuse patient.[facility] HospitalIn the event this information is protected by the Federal Confidentiality of Alcohol and Drug Abuse Patient Records regulations: The Federal rules restrict any use of the information to criminally investigate or prosecute any alcohol or drug abuse patient.[facility] HospitalIn the event this information is protected by the Federal Confidentiality of Alcohol and Drug Abuse Patient Records regulations: The Federal rules restrict any use of the information to criminally investigate or prosecute any alcohol or drug abuse patient.[facility] HospitalIn the event this information is protected by the Federal Confidentiality of Alcohol and Drug Abuse Patient Records regulations: The Federal rules restrict any use of the information to criminally investigate or prosecute any alcohol or drug abuse patient.[facility] HospitalIn the event this information is protected by the Federal Confidentiality of Alcohol and Drug Abuse Patient Records regulations: The Federal rules restrict any use of the information to criminally investigate or prosecute any alcohol or drug abuse patient.[facility] HospitalIn the event this information is protected by the Federal Confidentiality of Alcohol and Drug Abuse Patient Records regulations: The Federal rules restrict any use of the information to criminally investigate or prosecute any alcohol or drug abuse patient.[facility] HospitalIn the event this information is protected by the Federal Confidentiality of Alcohol and Drug Abuse Patient Records regulations: The Federal rules restrict any use of the information to criminally investigate or prosecute any alcohol or drug abuse patient.[facility] HospitalIn the event this information is protected by the Federal Confidentiality of Alcohol and Drug Abuse Patient Records regulations: The Federal rules restrict any use of the information to criminally investigate or prosecute any alcohol or drug abuse patient.[facility] HospitalIn the event this information is protected by the Federal Confidentiality of Alcohol and Drug Abuse Patient Records regulations: The Federal rules restrict any use of the information to criminally investigate or prosecute any alcohol or drug abuse patient.[facility] HospitalIn the event this information is protected by the Federal Confidentiality of Alcohol and Drug Abuse Patient Records regulations: The Federal rules restrict any use of the information to criminally investigate or prosecute any alcohol or drug abuse patient.[facility] HospitalIn the event this information is protected by the Federal Confidentiality of Alcohol and Drug Abuse Patient Records regulations: The Federal rules restrict any use of the information to criminally investigate or prosecute any alcohol or drug abuse patient.[facility] HospitalIn the event this information is protected by the Federal Confidentiality of Alcohol and Drug Abuse Patient Records regulations: The Federal rules restrict any use of the information to criminally investigate or prosecute any alcohol or drug abuse patient.[facility] HospitalIn the event this information is protected by the Federal Confidentiality of Alcohol and Drug Abuse Patient Records regulations: The Federal rules restrict any use of the information to criminally investigate or prosecute any alcohol or drug abuse patient.[facility] HospitalIn the event this information is protected by the Federal Confidentiality of Alcohol and Drug Abuse Patient Records regulations: The Federal rules restrict any use of the information to criminally investigate or prosecute any alcohol or drug abuse patient.[facility] HospitalIn the event this information is protected by the Federal Confidentiality of Alcohol and Drug Abuse Patient Records regulations: The Federal rules restrict any use of the information to criminally investigate or prosecute any alcohol or drug abuse patient.[facility] HospitalIn the event this information is protected by the Federal Confidentiality of Alcohol and Drug Abuse Patient Records regulations: The Federal rules restrict any use of the information to criminally investigate or prosecute any alcohol or drug abuse patient.[facility] HospitalIn the event this information is protected by the Federal Confidentiality of Alcohol and Drug Abuse Patient Records regulations: The Federal rules restrict any use of the information to criminally investigate or prosecute any alcohol or drug abuse patient.[facility] HospitalIn the event this information is protected by the Federal Confidentiality of Alcohol and Drug Abuse Patient Records regulations: The Federal rules restrict any use of the information to criminally investigate or prosecute any alcohol or drug abuse patient.[facility] HospitalIn the event this information is protected by the Federal Confidentiality of Alcohol and Drug Abuse Patient Records regulations: The Federal rules restrict any use of the information to criminally investigate or prosecute any alcohol or drug abuse patient.[facility] HospitalIn the event this information is protected by the Federal Confidentiality of Alcohol and Drug Abuse Patient Records regulations: The Federal rules restrict any use of the information to criminally investigate or prosecute any alcohol or drug abuse patient.[facility] HospitalIn the event this information is protected by the Federal Confidentiality of Alcohol and Drug Abuse Patient Records regulations: The Federal rules restrict any use of the information to criminally investigate or prosecute any alcohol or drug abuse patient.[facility] HospitalIn the event this information is protected by the Federal Confidentiality of Alcohol and Drug Abuse Patient Records regulations: The Federal rules restrict any use of the information to criminally investigate or prosecute any alcohol or drug abuse patient.[facility] HospitalIn the event this information is protected by the Federal Confidentiality of Alcohol and Drug Abuse Patient Records regulations: The Federal rules restrict any use of the information to criminally investigate or prosecute any alcohol or drug abuse patient.[facility] HospitalIn the event this information is protected by the Federal Confidentiality of Alcohol and Drug Abuse Patient Records regulations: The Federal rules restrict any use of the information to criminally investigate or prosecute any alcohol or drug abuse patient.[facility] HospitalIn the event this information is protected by the Federal Confidentiality of Alcohol and Drug Abuse Patient Records regulations: The Federal rules restrict any use of the information to criminally investigate or prosecute any alcohol or drug abuse patient.[facility] HospitalIn the event this information is protected by the Federal Confidentiality of Alcohol and Drug Abuse Patient Records regulations: The Federal rules restrict any use of the information to criminally investigate or prosecute any alcohol or drug abuse patient.[facility] HospitalIn the event this information is protected by the Federal Confidentiality of Alcohol and Drug Abuse Patient Records regulations: The Federal rules restrict any use of the information to criminally investigate or prosecute any alcohol or drug abuse patient.[facility] HospitalIn the event this information is protected by the Federal Confidentiality of Alcohol and Drug Abuse Patient Records regulations: The Federal rules restrict any use of the information to criminally investigate or prosecute any alcohol or drug abuse patient.[facility] HospitalIn the event this information is protected by the Federal Confidentiality of Alcohol and Drug Abuse Patient Records regulations: The Federal rules restrict any use of the information to criminally investigate or prosecute any alcohol or drug abuse patient.[facility] HospitalIn the event this information is protected by the Federal Confidentiality of Alcohol and Drug Abuse Patient Records regulations: The Federal rules restrict any use of the information to criminally investigate or prosecute any alcohol or drug abuse patient.[facility] HospitalIn the event this information is protected by the Federal Confidentiality of Alcohol and Drug Abuse Patient Records regulations: The Federal rules restrict any use of the information to criminally investigate or prosecute any alcohol or drug abuse patient.[facility] HospitalIn the event this information is protected by the Federal Confidentiality of Alcohol and Drug Abuse Patient Records regulations: The Federal rules restrict any use of the information to criminally investigate or prosecute any alcohol or drug abuse patient.[facility] HospitalIn the event this information is protected by the Federal Confidentiality of Alcohol and Drug Abuse Patient Records regulations: The Federal rules restrict any use of the information to criminally investigate or prosecute any alcohol or drug abuse patient.[facility] HospitalIn the event this information is protected by the Federal Confidentiality of Alcohol and Drug Abuse Patient Records regulations: The Federal rules restrict any use of the information to criminally investigate or prosecute any alcohol or drug abuse patient.[facility] HospitalIn the event this information is protected by the Federal Confidentiality of Alcohol and Drug Abuse Patient Records regulations: The Federal rules restrict any use of the information to criminally investigate or prosecute any alcohol or drug abuse patient.[facility] HospitalIn the event this information is protected by the Federal Confidentiality of Alcohol and Drug Abuse Patient Records regulations: The Federal rules restrict any use of the information to criminally investigate or prosecute any alcohol or drug abuse patient.[facility] HospitalIn the event this information is protected by the Federal Confidentiality of Alcohol and Drug Abuse Patient Records regulations: The Federal rules restrict any use of the information to criminally investigate or prosecute any alcohol or drug abuse patient.[facility] HospitalIn the event this information is protected by the Federal Confidentiality of Alcohol and Drug Abuse Patient Records regulations: The Federal rules restrict any use of the information to criminally investigate or prosecute any alcohol or drug abuse patient.[facility] HospitalIn the event this information is protected by the Federal Confidentiality of Alcohol and Drug Abuse Patient Records regulations: The Federal rules restrict any use of the information to criminally investigate or prosecute any alcohol or drug abuse patient.[facility] HospitalIn the event this information is protected by the Federal Confidentiality of Alcohol and Drug Abuse Patient Records regulations: The Federal rules restrict any use of the information to criminally investigate or prosecute any alcohol or drug abuse patient.[facility] HospitalIn the event this information is protected by the Federal Confidentiality of Alcohol and Drug Abuse Patient Records regulations: The Federal rules restrict any use of the information to criminally investigate or prosecute any alcohol or drug abuse patient.[facility] HospitalIn the event this information is protected by the Federal Confidentiality of Alcohol and Drug Abuse Patient Records regulations: The Federal rules restrict any use of the information to criminally investigate or prosecute any alcohol or drug abuse patient.[facility] HospitalIn the event this information is protected by the Federal Confidentiality of Alcohol and Drug Abuse Patient Records regulations: The Federal rules restrict any use of the information to criminally investigate or prosecute any alcohol or drug abuse patient.[facility] HospitalIn the event this information is protected by the Federal Confidentiality of Alcohol and Drug Abuse Patient Records regulations: The Federal rules restrict any use of the information to criminally investigate or prosecute any alcohol or drug abuse patient.[facility] HospitalIn the event this information is protected by the Federal Confidentiality of Alcohol and Drug Abuse Patient Records regulations: The Federal rules restrict any use of the information to criminally investigate or prosecute any alcohol or drug abuse patient.[facility] HospitalIn the event this information is protected by the Federal Confidentiality of Alcohol and Drug Abuse Patient Records regulations: The Federal rules restrict any use of the information to criminally investigate or prosecute any alcohol or drug abuse patient.[facility] HospitalIn the event this information is protected by the Federal Confidentiality of Alcohol and Drug Abuse Patient Records regulations: The Federal rules restrict any use of the information to criminally investigate or prosecute any alcohol or drug abuse patient.[facility] Goals (unrecognized section and content) Goals may be documented in a n alternate section FOR RECORDS PERTAINING TO PATIENTS WHO ARE [...] BE BASED ON THE PRIMARY CLINICAL RECORDS. [facility] [employer] [facility] provides no warranty or guarantee of the accuracy or completeness of information in this document.
== END 2024-10-08 08:49 | disposition home or self-care (01) ==
LOC: US 08:48
PROVIDERS: PCP Family Medicine; Visit Provider Nurse Practitioner Family
DX: N20.0 Calculus of kidney (principal)
CPT/HCPCS: 74018; 76775

== ENCOUNTER 2024-10-31 14:28 | Outpatient (OUT) | payer BC, SELFPAY ==
--- NOTE | 2024-10-31 14:35 | CT_ITS ---
The [address] [address] Patient Name: LEANA TRAN MRN: [id number] date: 1985 Sex: F Assigned Patient Location: CT Current Patient Location: CT Accession/Order Number: [id number] Exam Date: 10/31/2024 14:40 Report Date: 10/31/2024 15:22 At the request of: NON-STAFF PHYSICIAN MD Procedure: CT sinus wo con CT PARANASAL SINUSES WITHOUT CONTRAST: CLINICAL HISTORY: Chronic Sinusitis COMPARISON: None TECHNIQUE: Contiguous axial unenhanced images were obtained through the paranasal sinuses. Coronal reconstructions were also performed. This CT exam was performed using one or more following dose reduction techniques: Automated exposure control, adjustment of the mA and/or kV according to patient size, or use of iterative reconstruction technique. FINDINGS: Frontal sinuses are clear. Ethmoid sinuses are clear. Left sphenoid sinus is clear. Minimal sinus disease involving the right sphenoid sinus. Mucosal polypoid thickening involving the maxillary sinuses. No air-fluid levels or bony destruction. Ostiomeatal complexes appear patent. Nasal septum is relatively midline. Visualized mastoid air cells appear well-pneumatized. No soft tissue swelling. Intraorbital contents appear grossly unremarkable. Nasopharynx appears unremarkable. CT/CT sinus wo con IMPRESSION: MILD MAXILLARY AND RIGHT SPHENOID SINUS DISEASE. NO AGGRESSIVE FEATURES. Impression dictated by: Michael Price Jr., D.O. 10/31/2024 3:22 PM Dictation Location: [place] [address] Electronically authenticated by: [id number] Y Date: 10/31/2024 15:22
--- OUTSIDE RECORDS SUMMARY | 2024-10-31 14:39 | XMS_ITS | CCD ---
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 Name Role Phone Cas Dowell MD Primary Care Provider CAS DOWELL Primary Care Unavailabl e CANDIDO DAVID Referring Unavailable CAS DOWELL Primary Care Unavailabl e NABOR YANCEY Referring Unavailable Cas Dowell MD Primary Care Provider Cas Dowell MD Primary Care Provider Cas Dowell Primary Care Provider [phone] Ana PEREZ, Sai Unavailable Rubens Tim Unavailable Rubens Tim DO Unavailable Cas Dowell MD Primary Care Provider Cas Dowell Primary Care Provider Ana PEREZ, Sai Unavailable Rubens Tim DO Unavailable Cas Dowell Primary Care Provider [phone] Rubens Tim DO Unavailable Cas Dowell Primary Care Provider [phone] CAS DOWELL Primary Care Physician [phone] CAS DOWELL Primary Care Unavailabl e Cas Dowell Primary Care Provider Ana PEREZ, Sai Unavailable Rubens Tim DO Unavailable Cas Dowell MD Primary Care Provider Glenroy DO, Rubens R Unavailable ABAURA, FUENTES Referring Unavailable NADERER, CAS Guzman Primary Care Unavailable ANA, SAI Referring Unavailable NADERER, CAS Guzman Primary Care Unavailable GUZZOPETER Referring Unavailable NADERER, [...] CAS Guzman Consulting Unavailable NADERER, DR CAS Gzuman Primary Care Unavailable NADERER, DR CAS Guzman [...] NADERER, DR CAS Guzman Primary Care Unavailable TEJLORAINE Attending Unavailable TEJ, LORAINE Admitting Unavailable TEJLORAINE Consulting Unavailable GLENROY ., DR REYNOLDS Consulting Unavailable NADERER, DR CAS Guzman Primary Care Unavailable GLENROY ., DR REYNOLDS Attending Unavailable GLENROY ., DR REYNOLDS Admitting Unavailable FAWWAD, BLACKBURN H Primary Care Unavailable FAWWAD, BLACKBURN H Attending Unavailable FAWWAD, BLACKBURN H Admitting Unavailable REINECK, DR CORIE Hayden Consulting Unavailabl e REINECK, DR CORIE Hayden Attending Unavailabl e REINECK, DR CORIE Hayden Admitting Unavailabl e NADERER, DR CAS Guzman Primary Care Unavailable PAY ., DR BRUDEN Consulting Unavailable DARYN, AYAKA Consulting Unavailable RAYMOND, DR BELÉN Hatfield Consulting Unavailable MATILDE ., MARICEL Attending Unavailable MATILDE ., MARICEL Admitting Unavailable NADERER, DR CAS Guzman Primary Care Unavailable MORTEZA ., YANIRA Consulting Unavailable DAMION, JIMMY Starkey Consulting Unavailable Ana PEREZ, Sai Unavailable Grayson PEREZ, Cas Primary Care Provider Cas Dowell Primary Care Provider [phone] Rubens Tim DO Unavailable Cas Dowell MD Primary Care Provider [phone] Cas Dowell MD Primary Care Provider Cas Dowell MD Unavailable SARAH BEST Attending Unavailable NADERESuzy, CAS Referring Unavailable NADERER, CAS Primary Care Unavailable MARNI FLOWERS Attending Unavailable NADERESuzy, CAS Referring Unavailable NADERESuzy, CAS Primary Care Unavailable AKILA YAO Attending Unavailable GRAYSON, CAS Referring Unavailable GRAYSON, CAS Primary Care Unavailable MARNI FLOWERS Attending Unavailable NADRAJ, CAS Referring Unavailable NADERESuzy, CAS Primary Care Unavailable Cas Dowell MD Unavailable AKILA YAO Referring Unavailable GRAYSON, CAS Primary Care Unavailable Cas Dowell MD Primary Care Provider Cas Dowell MD Primary Care Provider Cas Dowell MD Primary Care Provider [phone] Phillip Thomas Attending Un available Cas Dowell MD Primary Care Unavail able Phillip Thomas Attending Un available Cas Dowell MD Primary Care Unavail able Phillip Thomas Attending Un available Cas Dowell MD Primary Care Unavail able Cas Dowell MD Primary Care Provider IVORY ORDAZ Referring Unavailable NADERER, CAS JOHNSON Primary Care Unavailabl e NABOR YANCEY Referring Unavailable NADERER, CAS JOHNSON Primary Care Unavailabl e KARABINMACRINA Referring Unavailable NADERER, CAS JOHNSON Primary Care Unavailabl e Naderer Cas PEREZ Primary Care Provider [phone] [facility] Oliva VACA Attending Provider BorisOliva mccarty Attending Unavail able Hernan, Oliva Valdovinos Admitting Unavail able Naderer, Cas Primary Care Unavailable NADERER, CAS Attending Unavailable DELILAHJODI Attending Unavailable NADERER, CAS Attending Unavailable NADERER, CAS Attending Unavailable NADERER, CAS Attending Unavailable RAMBASEK, CHRISTY Razo Attending Unavailable NADERER, CAS Referring Unavailable GLENROY, RUBENS Attending Unavailable NADERER, CAS Attending Unavailable VIPUL, [...] Primary Care Provider FUENTES AMARAL Referring Unavailable NADERER, CAS Guzman Primary Care Unavailable MARGOT LIMON Attending Unavailable FUENTES AMARAL Referring Unavailable NADERER, CAS Guzman Primary Care Unavailable OrzechSelma Attending Unavailable OrzechSelma Attending Unavailable MARNI FLOWERS Attending Unavailable NADERER, CAS Referring Unavailable NADERER, CAS Primary Care Unavailable TERRI HAN Attending Unavailable NADERER, CAS Referring Unavailable NADERER, CAS Primary Care Unavailable Allergies Allergy Classification Reported Allergen(s) Allergy Type Date of Onset Reaction(s) Facility Aluminum aspirin (1 source) Aluminum aspirin Drug Allergy 09-04-19 12 Rash [facility] Cephalosporins (antibiotic) (2 sources) Cefaclor Drug Allergy 09-04-19 12 Shortness Of Breath, Rash [email or web address] Phone: drospirenone / Ethinyl Estradiol (1 source) drospirenone / Ethinyl Estradiol Drug Allergy 09-04-19 12 [email or web address] Phone: Ethinyl Estradiol / Norethindrone (1 source) Ethinyl Estradiol / Norethindrone Drug Allergy 09-04-19 12 [email or web address] Phone: Latex (1 source) Latex Substance Allergy 09-04-19 12 Swelling, Rash [email or web address] Phone: Macrolides (antibiotic) (1 source) Erythromycin Drug Allergy 09-04-19 12 Shortness Of Breath [email or web address] Phone: NSAIDs (1 source) Ibuprofen Drug Allergy 09-04-19 12 [email or web address] Phone: Penicillins (antibiotic) (1 source) Penicillins Drug Allergy 09-04-19 12 [email or web address] Phone: rofecoxib (1 source) rofecoxib Drug Allergy 09-04-19 12 [email or web address] Phone: Sulfonamides (antibiotic) (1 source) Sulfonamides (Antibiotic) Drug Allergy 03-21-19 16 [facility] Unclassified (11 sources) Clindamycin/Lincomy juan Propensity to adverse reactions to drug 09-04-19 12 Rash [email or web address] Phone: Unclassified (20 sources) Iodides; Translations: [IODIDES] Propensity to adverse reactions to drug 09-04-19 12 Unknown, Anaphylaxis [email or web address] Phone: Unclassified (20 sources) Lavender Oil Propensity to adverse reactions to drug 06-14-19 21 Anaphylaxis [facility] (20 sources) Aluminum aspirin; Translations: [ASPIRIN] Drug Allergy 09-04-19 12 Rash, Angioedema, Unknown [facility] (20 sources) Cefaclor; Translations: [cefaclor] Drug Allergy 09-04-19 12 Shortness Of Breath, Anaphylaxis, Swelling, Unknown (qualifier value), Dyspnea (finding) [email or web address] Phone: (20 sources) Cefuroxime; Translations: [CEFUROXIME AXETIL] Drug Allergy 09-04-19 12 Rash, Unknown, Shortness of Breath [email or web address] Phone: (20 sources) drospirenone / Ethinyl Estradiol; Translations: [DROSPIRENONE-ETHIN YL ESTRADIOL] Drug Allergy 09-04-19 12 Unknown, Other: See Comments [email or web address] Phone: (20 sources) Erythromycin; Translations: [ERYTHROMYCIN] Drug Allergy 09-04-19 12 Shortness Of Breath, Swelling, Unknown [email or web address] Phone: (20 sources) Ethinyl Estradiol / Norethindrone Drug Allergy 09-04-19 12 [email or web address] Phone: (20 sources) Ibuprofen; Translations: [ibuprofen] Drug Allergy 09-04-19 12 Unknown (qualifier value), Rash, Unknown, Dyspnea (finding) [facility] (20 sources) Latex; Translations: [LATEX] Propensity to adverse reactions to drug 09-04-19 12 Swelling, Rash, Itching, Unknown, Eruption of skin (disorder) [email or web address] Phone: Comment on above: and swelling (15 sources) Penicillins; Translations: [PENICILLINS] Propensity to adverse reactions to drug 09-04-19 12 Rash, Itching [email or web address] Phone: (20 sources) rofecoxib Drug Allergy 09-04-19 12 Unknown, Rash [email or web address] Phone: (6 sources) Sulfonamides (Antibiotic) Propensity to adverse reactions to drug 03-21-19 16 [facility] (20 sources) Aspirin; Translations: [aspirin] Drug Allergy 09-04-19 12 Unknown, Angioedema, Unknown (qualifier value), Weal (disorder), Rash [facility] (20 sources) Clindamycin; Translations: [clindamycin] Drug Allergy 02-23-19 15 Swelling, Shortness of Breath, Rash, Unknown (qualifier value), Eruption of skin (disorder) [facility] Comment on above: sob, rash (20 sources) Contrast media; Translations: [CONTRAST DYE] Drug Allergy 09-04-19 12 Anaphylaxis [facility] (20 sources) Naproxen; Translations: [NAPROXEN] Drug Allergy 09-07-19 21 Swelling, Angioedema [facility] (19 sources) Penicillins Propensity to adverse reactions to drug 02-23-19 15 Rash, Itching [facility] (20 sources) Sulfonamides (Antibiotic); Translations: [SULFA (SULFONAMIDE ANTIBIOTICS)] Drug Allergy 03-21-19 16 Swelling, Shortness of Breath [facility] (20 sources) Lavender (Lavandula Angustifolia); Translations: [LAVENDER (LAVANDULA ANGUSTIFOLIA)] Drug Allergy 06-14-19 21 Anaphylaxis [facility] (7 sources) Eucalyptus oil Drug Allergy 10-24-19 21 [facility] (20 sources) gatifloxacin; Translations: [GATIFLOXACIN] Drug Allergy 12-22-19 15 Diarrhea [facility] Work Phone: (20 sources) Norethindrone-Ethin Estradiol; Translations: [NORETHINDRONE-ETHI N ESTRADIOL] Propensity to adverse reactions to drug 09-04-19 12 Unknown [facility] (20 sources) Eucalyptus extract; Translations: [EUCALYPTUS] Drug Allergy 10-24-19 21 Anaphylaxis [facility] (20 sources) levoFLOXacin; Translations: [LEVOFLOXACIN] Drug Allergy 11-12-19 21 Rash [facility] (20 sources) metroNIDAZOLE; Translations: [METRONIDAZOLE] Drug Allergy 03-02-19 22 Unknown [facility] (20 sources) Sulfamethoxazole / Trimethoprim; Translations: [SULFAMETHOXAZOLE-T RIMETHOPRIM] Drug Allergy 01-24-20 14 Unknown, Other (See Comments) [facility] (20 sources) Fish; Translations: [FISH CONTAINING PRODUCTS] Drug Allergy 07-26-19 22 [facility] Work Phone: (20 sources) Shellfish; Translations: [SHELLFISH DERIVED] Drug Allergy 07-26-19 22 [facility] Work Phone: (20 sources) Penicillins Propensity to adverse reactions to drug 09-04-19 12 Rash, Itching [facility] (20 sources) Penicillin G; Translations: [PENICILLIN G BENZATHINE] Drug Allergy 08-19-19 22 Unknown [facility] Work Phone: (8 sources) Iodine; Translations: [iodine] Drug Allergy 05-25-19 23 Unknown (qualifier value) [facility] (8 sources) Macrolides (Antibiotic); Translations: [macrolide antibiotics] Drug allergy 09-04-19 12 Allergy - specialty (qualifier value) [facility] (8 sources) Penicillin; Translations: [penicillin] Drug Allergy Unknown (qualifier value), Dyspnea (finding) [facility] (8 sources) Sulfonamides (Antibiotic); Translations: [sulfa drugs] Drug allergy Allergy - specialty (qualifier value) [facility] (20 sources) valACYclovir; Translations: [valacyclovir] Drug Allergy 10-06-19 22 Anaphylaxis (disorder), Shortness Of Breath, Anaphylaxis [facility] (20 sources) Povidone-Iodine; Translations: [povidone iodine topical] Drug Allergy 05-25-19 23 Eruption of skin (disorder), Rash [facility] (20 sources) Seafood Propensity to adverse reactions to drug 01-09-20 22 Hives, Rash [facility] Work Phone: (20 sources) rofecoxib; Translations: [ROFECOXIB] Drug Allergy 09-04-19 12 Rash, Unknown [facility] (6 sources) IODINATED CONTRAST MEDIA; Translations: [IODINATED CONTRAST MEDIA] Propensity to adverse reactions to drug (disorder) 02-23-19 15 [facility] (1 source) Aspirin Drug Allergy 03-12-19 15 [facility] (3 sources) Cefaclor; Translations: [Ceclor] Drug Allergy 03-12-19 15 [facility] (2 sources) Cefuroxime; Translations: [Ceftin] Drug Allergy 03-12-19 15 [facility] (1 source) Clindamycin Drug Allergy 03-12-19 15 [facility] (3 sources) Erythromycin Drug Allergy 03-12-19 15 Difficulty Breathing [facility] (1 source) Eucalyptus extract Drug Allergy 10-24-19 21 [facility] (1 source) gatifloxacin Drug Allergy 12-22-19 15 [facility] (2 sources) Ibuprofen; Translations: [Motrin] Drug Allergy [facility] (1 source) Iodine (And Iodine Containting Drugs) Drug allergy (disorder) 03-12-19 15 [facility] (1 source) Latex Drug allergy (disorder) 03-12-19 15 [facility] (1 source) levoFLOXacin Drug Allergy 11-12-19 21 [facility] (1 source) Naproxen Drug Allergy 08-07-19 21 [facility] (1 source) Penicillins Drug allergy (disorder) 03-12-19 15 [facility] (1 source) rofecoxib Drug Allergy 03-12-19 15 [facility] (1 source) Sulfamethoxazole / Trimethoprim Drug Allergy 02-23-19 21 [facility] (1 source) Sulfonamides (Antibiotic) Drug allergy (disorder) 03-12-19 15 [facility] (1 source) valACYclovir Drug Allergy [facility] (20 sources) buPROPion; Translations: [BUPROPION] Drug Allergy 06-22-19 23 Other (See Comments), Other: See Comments [facility] (20 sources) Cefuroxime Drug Allergy 07-08-19 23 [facility] (20 sources) dimethicone; Translations: [DIMETHICONE] Drug Allergy 07-08-19 23 [facility] (20 sources) Fish - dietary Allergy to substance 07-26-19 22 Hives [facility] (20 sources) Gatifloxacin Allergy to substance 12-22-19 15 Diarrhea [facility] (20 sources) Latex Allergy to substance 09-04-19 12 Itching, Rash, Swelling, Unknown [facility] (20 sources) Menthol; Translations: [MENTHOL] Drug Allergy 02-27-19 23 Hives [facility] (20 sources) Penicillins Drug Intolerance 09-04-19 12 Itching, Rash [facility] (20 sources) zolpidem; Translations: [ZOLPIDEM] Drug Allergy 05-25-19 23 Unknown, Other (See Comments) [facility] Comment on above: muscle spasms and je rking (20 sources) Galcanezumab-Gnlm Propensity to adverse reactions 07-08-[address] [facility] (20 sources) Norethindrone-Eth Estradiol Drug Intolerance 09-04-[address] [facility] (20 sources) Benzathine penicillin - chemical Allergy to substance 08-22-[address] [facility] (20 sources) Sulfamethoxazole; Translations: [SULFAMETHOXAZOLE] Allergy to substance 08-19-19 [address] [facility] Comment on above: triggers asthma (4 sources) [...] (disorder) 09-04-19 12 [facility] (20 sources) Topiramate Propensity to adverse reactions 02-10-[address] [facility] (20 sources) Sulfamethoxazole Drug Allergy 08-19-19 22 [facility] (1 source) CT dye and contrast; Translations: [CT dye and contrast] Propensity to adverse reactions (disorder) [facility] Repository (5 sources) Penicillins Propensity to adverse reactions to drug 09-04-19 12 Itching, Rash [facility] (2 sources) Trimethoprim Drug Allergy 09-09-19 25 Difficulty Breathing [facility] Comment on above: triggers asthma [...] every four hours as needed for headache orspmhmihd-utdneefajotrx-vgsvccda (FIORICET) 50-325-40 MG per tablet Take 1 [...] tablet 0 05/20/2021 05/22/2021 Active Ajovy Autoinjector (2 sources) Sta rt: 3 inject 225 mg by subcutaneous injection every month Ajovy Autoinjector 225 mg, SubCutaneous, qMonth, Refills(s) 0 Start Date: 01/04/23 Status: Ordered Repeat number: 1 Start: 01-04-2023 inject 225 mg by sub cutaneous injection every month Ajovy Autoinjector 225 mg, [...] sources) gamma-Aminobutyric Acid-ergic Agonist Start: 07-01-2024 take 0.5-1 tablets by mouth once daily baclofen (LIORESAL) 20 mg tablet Indications: Migraine without aura and without status migrainosus, not intractable , Trapezius muscle spasm , Cervicalgia Take 0.5-1 tablets (10-20 mg total) by mouth nightly. 90 tablet 1 07/01/2024 Active Start: 2021 End: 08-11-2024 take 10 mg by mouth three times daily baclofen 10 mg, Oral, TID, Refills(s) 0 Start Date: 12/21/21 Status: Ordered Repeat number: 1 Start: 2021 baclofen Oral, TID, Refills(s) 0 [...] daily. cholecalciferol, vitamin D3, (VITAMIN D3 ORAL) (20 sources) cholecalciferol, vitamin D3, (VITAMIN D3 ORAL) [...] procedure., # 2 tab(s), Refills(s) 0, Pharmacy: [facility]/pharmacy #[id number], 162, cm, 12/21/21 [...] current settings/supplies/DME information. Cymbalta 60 mg Cap-DR (2 sources) Start: 01-05-20 take 1 capsule by mouth once daily Cymbalta 60 mg Cap-DR 60 mg, Oral, Daily, Refills(s) 0 Start Date: 01/04/23 Status: Ordered Repeat number: 1 Start: 01-04-2023 take 1 capsule by mo ut once daily Cymbalta 60 mg Cap-DR 60 mg, Oral, Daily, Refills(s) 0 Start Date: 01/04/23 Status: Ordered 12 hr dextromethorphan hydrobromide 30 mg / guaiFENesin 600 mg extended release oral tablet (1 source) Uncompetitive V-tqekdx-X-aspartate Receptor Antagonist, Sigma-1 Agonist take 30-600 mg by mouth once as needed dextromethorphan-guaiFENesin (MUCINEX DM) 30-600 MG per extended release tablet Take 1 tablet by mouth every 12 hours as needed 0 Active doxycycline hyclate 100 mg oral tablet (19 sources) Tetracycline-class Drug Sta rt: End : take 1 tablet by mouth twice daily [...] Status: Ordered take 2 capsules by m [facility] once daily DULoxetine (CYMBALTA) 30 MG extended release capsule Take 2 capsules by mouth daily Active Comment on above: TAKE 1 CAPSULE BY MO [facility] EVERY DAY DO NOT CRUSH OR CHEW [id number] 0.3 ml EPINEPHrine 1 mg/ml auto-injector (20 sources) alpha-Adrenergic Agonist, beta-Adrenergic Agonist, Catecholamine Start: 07-02-2023 EPINEPHrine (Epipen) 0.3 MG/0.3ML injection syringe 0.3 MG (0.3 ML) INTRAMUSCULARLY ONCE NEEDED FOR ANAPHYLAXIS FOR 2 DOSES 07/02/2023 Active Start: 12-22-2022 EpiPen 2-Erma a s directed, Refills(s) 0 Start Date: 12/22/22 Status: Ordered Repeat number: 1 Start: 12-22-2022 EpiPen 2-Erma a s directed, Refills(s) 0 Start Date: 12/22/22 Status: Ordered Start: 09-05-2021 End: 09-05-2021 EPINEPHrine PF 1 MG/ML injec tion Start: 06-05-2021 EPINEPHrine (E pipen) 0.3 MG/0.3ML injection syringe 07/02/2023 Active Start: 06-05-2021 EPINEPHrine (E PIPEN) 0.3 mg/0.3 [...] nasal spray (20 sources) Corticosteroid Start: 04-09-19 25 take 1 spray(s) nasal route once daily Start: 12-16-2021 Flonase Allerg y Relief 50 mcg/inh nasal spray Daily, Refills(s) 0 Start Date: 12/16/21 Status: Ordered Repeat number: 1 Start: 07-14-2021 End: 10-19-2021 take 1 spray(s) nasal route twice daily fluticasone (FLONASE) 50 mcg/actuation nasal spray Use 1 [place] in each nostril twice daily. 3 Each [...] nostril Active Comment on above: Use 1 [place] in each nostril twice daily. 1 spray [...] Active ketorolac tromethamine 10 mg oral tablet (8 sources) Nonsteroidal Anti-inflammatory Drug, Cyclooxygenase Inhibitor Start: [...] (20 sources) Mood Stabilizer, Anti-epileptic Agent Start: 2 take 1 tablet by mouth at bedtime lamotrigine 150 mg Tab 150 mg = 1 tab(s), Oral, Bedtime, Refills(s) 0 Start Date: 12/16/21 Status: Ordered Repeat number: 1 Comment on above: Take 150 mg by mouth daily at bedtime. levalbuterol 2.5 mg/ml inhalation solution (20 sources) beta2-Adrenergic Agonist Start: levalbuterol (Xopenex Concentrate) 1.25 MG/0.5ML nebulizer solution [...] MOUTH IN THE MORNING 90 tablet 3 05/01/2024 Active Start: 01-18-2022 take 0.5 tablet by [...] Refills(s) 0 Start Date: 12/16/21 Status: Ordered Repeat number: 1 take 1.5 tablets by mouth once daily [...] on Wednesdays linagliptin 5 mg oral tablet (6 sources) Dipeptidyl Peptidase 4 Inhibitor Start: 12-23-19 End: 10-10-19 take 1 tablet by mouth once daily Tradjenta 5 mg oral tablet 5 mg = 1 tab(s), Oral, Daily Start Date: 12/22/22 Status: Ordered Repeat number: 1 liothyronine sodium 0.005 mg oral tablet (20 sources) l-Triiodothyronine Start: 12-06-19 End: 03-31-19 take [...] gluconate 500 mg oral tablet (20 sources) magnesium glucon ate (MAGONATE) 500 mg tablet tablet Take 27 mg by mouth in the morning and 27 mg before bedtime. 600 mg. Active take 1 tablet by mouth in the mo rning magnesium, as gluconate, (Magonate) 500 (27 Mg) MG tablet Take 27 mg by mouth in the morning and 27 mg before bedtime. Active magnesium glycinate 100 mg oral tablet (1 source) Magnesium Glycin ate 100 MG CAPS Take by mouth Active Magnesium Glycinate 100 mg magnesium capsule (2 sources) Start: 12-24-2023 magnesium glycinate 100 mg magnesium capsule (1 source) magnesium glycin ate 100 mg magnesium capsule Take 200 mg by mouth as directed. Active magnesium oxide 400 mg oral tablet (3 sources) Start: 01-04-2023 take 1 tablet by mouth once daily magnesium oxide 400 mg Tab 400 mg = 1 tab(s), Oral, Daily, Refills(s) 0 Start Date: 01/04/23 Status: Ordered Repeat number: 1 magnesium oxide (Mag-Ox) 400 mg tablet 400 [...] Leukotriene Receptor Antagonist Start: 01-19-2014 take 1 mg by mouth once daily Singulair 10 mg Tab mg tab(s), Oral, Daily, Refills(s) 0 Start Date: 12/16/21 Status: Ordered Repeat number: 1 Comment on above: Take 10 mg by mouth once daily. Nurtec ODT (2 sources) Start: 01-04-2023 take 75 mg by mouth once Nurtec ODT 75 mg, Oral, Once, Refills(s) 0 Start Date: 01/04/23 Status: Ordered Repeat number: 1 Start: 01-04-2023 take 75 mg by mouth once Nurte c ODT 75 mg, Oral, Once, Refills(s) 0 Start Date: 01/04/23 Status: Ordered 10 actuat olodaterol 0.0025 mg/actuat / tiotropium 0.0025 mg/actuat inhalation spray (1 source) Anticholinergic, beta2-Adrenergic Agonist Start: 04-17-2024 tiotropium-olodaterol (STIOLTO RESPIMAT) 2.5-2.5 MCG/ACT AERS Inhale 2 puffs into the lungs daily 1 each 6 04/17/2024 Active ondansetron 4 mg disintegrating oral tablet (20 sources) Serotonin-3 Receptor Antagonist Start: 01-18-2022 ondansetron ODT (ZOFRAN ODT) 4 mg disintegrating tablet 01/18/2022 Active Start: 04-16-2021 End: 04-16-2021 ondansetron [...] chloride 10 meq extended release oral tablet (2 sources) Start: 10-01-19 potassium chloride (K-TAB,KLOR-CON) 10 MEQ CR tablet Take 1 tablet (10 mEq total) by mouth in the morning. 09/30/2024 Active prasterone 25 mg oral tablet [...] disintegrating oral tablet (20 sources) Start: 09-29-19 End: 07-02-19 rimegepant (NURTEC ODT) 75 mg tablet,disintegratin g [...] 0 Active sAXagliptin 5 mg oral tablet (20 sources) Dipeptidyl Peptidase 4 Inhibitor Start: 02-10-19 End: 05-20-19 take 1 tablet by mouth in the morning sAXagliptin (ONGLYZA) 5 mg tablet Take 1 tablet (5 mg total) by mouth in the morning. 02/11/2024 Active sertraline 100 mg oral tablet (20 sources) Serotonin Reuptake Inhibitor Start: 12-17-19 take 1 tablet by mouth once daily sertraline (Zoloft) 100 MG tablet Take 100 mg by mouth Daily 02/24/2023 Active Start: 06-11-2019 take 2 tablets by mo uth once daily sertraline 100 mg Tab 200 mg = 2 tab(s), Oral, Daily, Refills(s) 0 Start Date: 12/16/21 Status: Ordered Repeat number: 1 take 0.5 tablet by m outh in [...] chloride bolus sucralfate 1000 mg oral tablet (2 sources) Aluminum Complex Start: 02-01-2023 Carafate 1 gr am Tab 1 gm = 1 tab(s), Oral, QIDACHS, prescribed 01/31/23 after EGD, Refills(s) 0 Start Date: 02/01/23 Status: Ordered Repeat number: 1 Symbicort 160/4.5 inhalation aerosol with adapter (1 source) Start: 12-22-2022 take 2 puff(s) by inhalation twice daily Symbicort 160/4.5 inhalation aerosol with adapter 2 puff(s), Inhalation, BID, Refill(s) 0 Start Date: 12/22/22 Status: Ordered tamsulosin hydrochloride 0.4 mg oral capsule (3 sources) alpha-Adrenergic Tej Start: 09-05-2022 take 1-2 tablets by mouth once daily tamsulosin 0.4 mg Cap See Instructions, take 1-2 tabs po daily when you feel like you are passing a stone, # 30 tab(s), Refills(s) 1, Pharmacy: [facility]/pharmacy #[id number], 162, cm, 09/05/22 8:28:00 EDT, Height/Length Dosing, 99, kg, 09/05/22 8:28:00 EDT, Weight Dosing Start Date: 09/05/22 Status: Ordered Quantity: 30.0 Unit: tab(s) Repeat number: 2 traZODone hydrochloride 100 mg oral tablet (9 [...] Refills(s) 0 Start Date: 01/04/23 Status: Ordered Repeat number: 1 Start: 08-25-2021 take 1 tablet by shaji [...] sublingual tablet (20 sources) Vitamin B12 Start: 3 take 1 [...] Start Date: 12/16/21 Status: Ordered Vitamin D3 (6 sources) Start: 12-16-2021 Vitamin D3 Ref ills(s) 0 Start Date: 12/16/21 Status: Ordered Repeat number: 1 Start: 12-16-2021 Vitamin D3 Ref ills(s) 0 Start Date: 12/16/21 Status: Ordered zolpidem tartrate 5 mg oral tablet (20 sources) gamma-Aminobutyric Acid-ergic Agonist Start: 05-19-2021 zolpidem (AMBIEN) 5 [...] evening. 180 capsule 1 09/15/2024 Active Start: 07-05-2023 End: 09-15-2024 take 2 capsules [...] take 1 capsule by mouth once daily take 2 capsules by m outh once daily zonisamide (ZONEGRAN) 25 MG capsule Take 50 mg by mouth daily 0 Active Comment on above: Take 1 capsule by mo uth once daily. Completed/Discontinued Medications Medication Drug Class(es) Dates Sig (Normalized) Sig (Original) [id number] 200 actuat albuterol 0.09 mg/actuat metered dose [...] mg/mL injection 0.3 mg 168 hr estradiol 0.31911 mg/hr transdermal system (4 sources) Estrogen Start: [...] THE SKIN ONCE PER WEEK estrogens, conjugated (longterm) 0.625 mg oral tablet (3 sources) Estrogen [...] BID, # 60 tab(s), Refills(s) 3, Pharmacy: [facility]/pharmacy #[id number], 162, cm, 01/04/23 9:06:00 EST, Height/Length Dosing, 100.5, kg, 01/04/23 9:06:00 EST, Weight Dosing Start Date: 02/13/23 Status: Ordered Quantity: 60.0 Unit: tab(s) Repeat number: 4 Indications: Gastro-esophageal reflux disease without esophagitis; prazosin 5 mg oral capsule (20 sources) alpha-Adrenergic Etj Start: 06-29-2021 End: 04-18-2022 take 1 capsule [...] hyperglycemia, without long-term current use of insulin ([facility]) 0.25 mg SC weekly x 4 weeks, then 0.5 mg weekly 1 each 3 10/10/2023 11/07/2023 Discontinued (Therapy completed) SITagliptin 100 mg oral tablet (20 sources) Dipeptidyl Peptidase 4 Inhibitor Start: 11-23-2020 End: 12-05-2024 take 1 tablet by mouth once daily SITagliptin (Januvia) 100 MG tablet Indications: Type 2 diabetes mellitus with hyperglycemia, without long-term current use of insulin ([facility]) Take 1 tablet (100 mg) by mouth Daily 90 tablet 3 05/19/2024 08/11/2024 Discontinued Comment on above: Take 100 mg by mouth as needed. Take 1 tablet by shaji th once daily. spironolactone 50 mg oral tablet [...] Serotonin-1b and Serotonin-1d Receptor Agonist End: 11-02-19 21 take 2 tablets by mouth once as needed SUMAtriptan (IMITREX) 50 MG tablet Take 100 mg by mouth once as needed for Migraine 0 11/01/2020 Discontinued (Therapy completed) 60 actuat tiotropium 0.24690 mg/actuat inhalation spray (20 sources) Anticholinergic Start: 12-24-19 24 End: 09-09-19 25 Tiotropium [place] (Spiriva Respimat) 1.25 mcg/actuation mist Discontinued INHALATION December 24, 2023 1:00am September 08, 2024 11:48am Start: 11-07-2023 End: 11-06-2024 tiotropium (Spiriva Respimat ) 1.25 MCG/ACT inhaler Indications: Severe persistent asthma with (acute) exacerbation ([facility]) Inhale 2 puffs Daily 1 each 11 11/07/2023 08/11/2024 Discontinued tiZANidine 4 mg oral [...] Date Documented Da te Episodic/Chronic Abdominal hernia (20 sources) Right inguinal hernia ; Translations: [Unilateral inguinal hernia, without obstruction or gangrene, not specified as recurrent] Onset: 3 12-16-2021 Episodic Anxiety disorders (20 sources) Anxiety; Translations: [Anxiety disorder, unspecified] Onset: 6 Resolved: 3 Chronic Asthma (20 sources) Exacerbation of moderate persistent asthma; Translations: [Moderate persistent asthma with (acute) exacerbation] Onset: 6 Resolved: 4 Chronic Calculus of urinary tract (6 sources) Kidney stone; Translations: [Calculus of kidney] [...] Translations: [Diabetes mellitus] Onset: 1 12-16-2021 Chronic Diseases of mouth; excluding dental (2 sources) Geographic tongue; Translations: [Geographic tongue] Onset: 5 10-28-2024 Episodic Disorders of lipid metabolism (20 sources) Hyperlipidemia; Translations: [Hyperlipidemia, unspecified] Onset: 6 01-12-2023 Chronic Esophageal disorders (20 sources) Gastroesophageal reflux disease; Translations: [Gastro-esophageal reflux disease without esophagitis] Onset: 6 Chronic Essential hypertension (1 source) Hypertensive disorder; Translations: [Essential (primary) hypertension] Chronic Genitourinary symptoms and ill-defined conditions (20 sources) Stress incontinence (female) (male); Translations: [Genuine stress incontinence] Onset: 2 Resolved: 4 Chronic Genitourinary symptoms and ill-defined conditions (20 sources) Blood in urine; Translations: [Gross hematuria] Onset: 2 Resolved: 3 Episodic Headache; including migraine (20 sources) Chronic intractable [...] 12-16-2021 Chronic Other aftercare (1 source) Other nursing home (current) drug therapy; Translations: [[employer] CURRENT DRUG THERAPY] Onset: 3 Episodic Other and unspecified benign neoplasm (3 sources) Benign lipomatous tumor; Translations: [Benign lipomatous neoplasm, unspecified] Onset: 3 Episodic Other and unspecified benign neoplasm (3 sources) Lipoma (clinical) 09-05-2022 Episodic Other and [...] and degenerative nervous system conditions (2 sources) 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 Other infections; including parasitic (20 sources) Late effects of other and unspecified infectious and parasitic diseases; 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] Onset: 2 Chronic Other infections; including parasitic (20 sources) Post-viral disorder; Translations: [Sequelae of other [...] involuntary movements] Episodic Other nervous system disorders (2 sources) Paresthesia 12-22-2022 Episodic Other non-traumatic joint disorders (6 sources) Multiple joint pain; Translations: [Pain in unspecified joint] Episodic Other non-traumatic joint disorders (9 sources) Pain of right wrist; Translations: [Pain in right wrist] Onset: 5 09-25-2024 Episodic Other nutritional; endocrine; and metabolic disorders (1 source) Drug-induced obesity; Translations: [Drug-induced obesity] Chronic Other nutritional; endocrine; and metabolic disorders (4 sources) Body mass index 30+ - obesity; Translations: [Body mass index (BMI) 38.0-38.9, adult] 01-04-2023 Chronic Other nutritional; endocrine; and metabolic disorders (2 sources) Metabolic syndrome X 12-22-2022 Chronic Other nutritional; endocrine; and metabolic disorders (2 sources) Morbid obesity 12-22-2022 Chronic Other nutritional; endocrine; and metabolic disorders (20 sources) Severe obesity; Translations: [Class 2 severe obesity due to excess calories with serious comorbidity and body mass index (BMI) of 37.0 to 37.9 in adult ([facility])] Onset: 5 02-11-2024 Chronic Other [...] Translations: [Dysphonia] Episodic Other upper respiratory disease (6 sources) Vocal cord dysfunction; Translations: [Other diseases of vocal cords] 11-07-2023 Episodic Other upper respiratory disease (1 source) Other diseases of vocal cords; Translations: [Other diseases of vocal cords] Onset: 5 Episodic Other upper respiratory disease (1 source) Hypertrophy of nasal turbinates; Translations: [Hypertrophy of nasal turbinates] Onset: 5 Episodic Other upper respiratory disease (1 source) Hypertrophy of nasal turbinates; Translations: [Hypertrophy of nasal turbinates] 10-28-2024 Episodic Other upper respiratory infections (13 sources) Chronic sinusitis; Translations: [Chronic sinusitis, unspecified] Onset: 6 09-08-2023 Chronic Otitis media and related conditions (2 sources) Tympanosclerosis, bilateral; Translations: [Bilateral tympanosclerosis] Onset: 5 10-28-2024 Episodic Ovarian cyst (20 sources) Cyst of left ovary; Translations: [Unspecified ovarian cyst, left side] Onset: 3 Episodic Residual codes; unclassified (20 sources) Obstructive sleep apnea syndrome; Translations: [Obstructive sleep apnea (adult) (pediatric)] Onset: 1 Chronic Residual codes; unclassified (1 source) Sleep paralysis; Translations: [Other sleep disorders] Chronic Residual codes; unclassified (1 source) Poor sleep pattern; Translations: [Other sleep disorders] Chronic Residual codes; unclassified (20 sources) Hypersomnia with sleep apnea; Translations: [Hypersomnia, unspecified] Onset: 2 Resolved: 4 01-12-2023 Chronic Residual codes; unclassified (2 sources) Hypersomnia, [...] [No-show for appointment] Episodic Residual codes; unclassified (4 sources) Insomnia; Translations: [Insomnia, unspecified] 12-22-2022 Episodic Residual codes; unclassified (2 sources) Peripheral edema 12-22-2022 Episodic Residual codes; unclassified [...] unspecified] Onset: 2 Unclassified (2 sources) 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; Translations: [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] Onset: 2 Unclassified (3 sources) Chronic rhinosinusitis; Translations: [chronic rhinosinusitis] Onset: 5 09-25-2024 Unclassified (1 source) Qualitative platelet disorder Onset: 5 Past or Other Problems Problem Classification Problem Date Documented Date Episodic/Chronic Abdominal pain (20 sources) Right lower quadrant [...] 07-25-2021 Resolved: 01-16-2023 Episodic Headache; including migraine (20 [...] malaise] Onset: 03-02-2021 05-24-2021 Episodic Mood disorders (20 sources) Mood disorders Onset: 01-04-2023 01-04-2023 Nonmalignant [...] musculoskeletal systems] Onset: 03-02-2021 03-02-2021 Episodic Other endocrine disorders (19 sources) Disorder [...] unspecified] Onset: 04-09-2023 Resolved: 10-10-2023 10-10-2023 Episodic Residual codes; unclassified (20 sources) Diffuse [...] Reference Range Facility Ambulatory Visit Summaryon 0 10-09-2024 Ambulatory Visit Summary Ambulatory Visit Summary LEANA TRAN :1985 Visit Date:10/09/2024 Ambulatory Visit Instructions Your Diagnosis Kidney stone Feeling of incomplete bladder emptying Your Care Team Attending Physician - CHELO Choe APRN, [facility] Primary Care Physician - CAS DOWELL MD This Is Your Medications List baclofen cholecalciferol (Vitamin D3) duloxetine (Cymbalta 60 mg [...] septoplasty, Tubal ligation, Tympanostomy. Discharge Vitals Temperature (Tympanic) 36.7 ???C Heart Rate (Peripheral) 70 Respiratory Rate 16 Blood Pressure 128/80 Height 162 cm Height 64 in Weight 105 kg Weight 231.485 lb BMI 40.01 What to do next Scheduled Follow-Up Appointments 2025 10:20 AM EDT With: CHELO Choe APRN, [facility] Where: [facility] [address] [address]- Medications What How Much When Why Instructions Unchanged baclofen 10 Milligram By Mouth 3 times a day Unchanged cholecalciferol (Vitamin D3) [...] Insomnia Kidney stone Metabolic syndrome Morbid obesity Morbid obesity with BMI of 40.0-44.9, adult Myoclonic jerking Obstructive sleep apnea syndrome Ovarian [...] you for choosing us for your care. Patient Portal You may access all of your results and other medical record information on our secure patient portal. If you are not signed up for this yet, please contact [employer] (more content not included)... [facility] Reminderson 10-09-2024 Reminders Reminders From: CHELO Choe APRN, [facility] To: CARLA Choe; Sent: 10/09/2024 13:09:01 EDT Show up: 08/08/2025 13:08:00 EDT Subject: Reminder Message Reminder Message CT AP wo con for 1 yr f/u AML, kidney stones order placed today, pt prefers [facility] Urology Office/Clinic Noteon 10-09-2024 Urology Office/Clinic Note Urology Office/Clinic Note Chief Complaint pt here for a 1 year follow up HPI Staff Pt is a 38 year old female here for a 1 year follow up Dx: kidney stone, angiomyolipoma, gross hematuria, urethral stricture. *Has Flomax for stone passage GORDON done 08/21/23 at [facility]. BBSQ: 16 Pt denies pain/burning denies visible blood denies flank pain today but did have some on Sunday with bladder pressure PVR: 29 mL History of Present Illness I have reviewed and verified the staff HPI to be accurate for this encounter. Portions of this record may have been created with voice recognition artificial intelligence software, specifically [employer], [employer] and or [employer]. Substitutions may have occurred due to the inherent limitations of voice recognition and artificial intelligence software. Review of Systems PHQ Score Initial Depression Screen Score: 0 SCORE Physical Exam Vitals & Measurements T: 36.7 ???C(Tympanic) HR: 70(Peripheral) RR: 16 BP: 128/80 HT: 64 in HT: 162 cm WT: 105 kg WT: 231.485 lb BMI: 40.01 General: Well developed, well nourished, in no acute distress. Assessment/Plan GPC pt BBS 16 1. 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 This is nonspecific. This appears to have been on CT 11/14/2021 and 02/24/2020. 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 It is likely of no clinical significance. Patient opted for continued surveillance as her mother slight something go on her kidney that ended up costing her a kidney R US 08/21/2023 with possible 8 mm nonobstructing stone on the left recommended further evaluation of 8 mm stone versus angiomyolipoma, as this is a similar 8 mm structure but labeled differently. CT AP wo con 10/09/23 w/o mention of stone or AML. GORDON 10/08/24 - hyperechoic nodular area at inferior left kidney measuring 11 x 7 x 11 mm. This may be angiomyolipoma. Discussed image - slightly larger that 2022 measurement, but not significantly increasing in size. We discussed continued surveillance annually w/ CT to ensure overall stability x 5 yrs, then can reduce to GORDON every few years to monitor. Pt agrees Pt does have hx of severe rxn to contrast even w/ premedication -f/u 1 yr w/ CT wo con Ordered: CT Abdomen/Pelvis w/o Contrast 2. Kidney stone (N20.0: Calculus of kidney) Renal US 09/02/22 neg for hydro or stones. R US 08/21/2023 with possible 8 mm nonobstructing stone on the left CT AP wo con 10/09/23 w/o stones GORDON 10/08/24 - neg for stones KUB 10/08/24 - neg for stones UA today w/o blood or infection Pt notes that she passes a stone every few mos. Has always had negative imaging though. Has never had issues passing stones on her own. Discussed generalized stone prevention - pt encouraged to increase fluid intake so that he/she producing 2.5L of urine daily. Add 1/4 cup of lemon juice to water throughout the day or can also drink sugar free lemonade or clear soda. Avoid dark kehinde. Restrict sodium intake. Restrict animal protein. -f/u 1 yr w/ CT -tamsulosin PRN Ordered: 61026 Measure Post Void residual urine and/or bladder capacity by US- non-imaging CT Abdomen/Pelvis w/o Contrast Urnls Dip Stick Auto w/o Microscopy POC 10434 3. Unspecified urethral stricture, female (N35.92: Unspecified urethral stricture, female) s/p cysto/UD 01/23/22 Denies worsening of urinary stream, but does worry she is not emptying completely -cont to monitor 4. Feeling of incomplete bladder emptying (R39.14: Feeling of incomplete bladder emptying) PVR today 29 ml discussed w/ pt, emptying well at this time -cont to monitor Follow-up With When Contact Information CHELO Choe APRN, Selma Benavides, FAM, URL Additional Instructions: [address] Patient Education Lipoma Kidney Stones, [id number] Problem List/Past Medical History Ongoing Abnormal urine sediment Angiomyolipoma Anxiety and depression Arachnoid cyst Asthma BMI 38.0-38.9,adult Duodenogastric bile reflux Dyspareunia in female GERD (gastroesophageal reflux disease) Gross hematuria Hypothyroidism Insomnia Kidney stone Metabolic syndrome Morbid obesity Morbid obesity with BMI of 40.0-44.9, adult Myoclonic jerking Obstructive sleep apnea syndrome Ovarian [...] delivery, Colonoscopy, EGD - esophagogastroduodenoscopy, Endometrial ablation, Insertio (more content not included)... [facility] Comment on above: Result Comment: Elec tronically Signed By: CHELO Choe APRN, [facility]\.br\Date and Time Signed: 10/09/24 13:08 EDT CBC W Auto Differential pane l (Bld)on 09-30-2024 Basophils (Bld) [#/Vol] 0.06 10*3/uL Normal <0.11 [facility] Comment on above: Order Comment: Speci men Type: BLOOD SPECIMEN Ordering Facility: [facility] Address: [address] [place] [address] Performed By: #### 5 7021-8 #### [facility] CLIA [id number] [address] [place] [address] Basophils/100 WBC (Bld) 0.6 % Normal [facility] Comment on above: Order Comment: Speci men Type: BLOOD SPECIMEN Ordering Facility: [facility] Address: [address] [place] [address] Performed By: #### 5 7021-8 #### [facility] CLIA [id number] [address] [place] [address] Differential cell count method Nom (Bld) Auto Normal [facility] Comment on above: Order Comment: Speci men Type: BLOOD SPECIMEN Ordering Facility: [facility] Address: [address] [place] [address] Performed By: #### 5 7021-8 #### [facility] CLIA [id number] [address] [place] [address] Eosinophils (Bld) [#/Vol] 0.09 10*3/uL Normal <0.46 [facility] Comment on above: Order Comment: Speci men Type: BLOOD SPECIMEN Ordering Facility: [facility] Address: [address] [place] [address] Performed By: #### 5 7021-8 #### [facility] CLIA [id number] [address] [place] [address] Eosinophils/100 WBC (Bld) 0.9 % Normal [facility] Comment on above: Order Comment: Speci men Type: BLOOD SPECIMEN Ordering Facility: [facility] Address: [address] [place] [address] Performed By: #### 5 7021-8 #### [facility] CLIA [id number] [address] [place] [address] Erythrocyte distribution width (RBC) [Ratio] 11.9 % Normal 11.5-15.0 [facility] Comment on above: Order Comment: Speci men Type: BLOOD SPECIMEN Ordering Facility: [facility] Address: [address] [place] [address] Performed By: #### 5 7021-8 #### [facility] CLIA [id number] [address] [place] [address] Hematocrit (Bld) [Volume fraction] 41.8 % Normal 36.0-46.0 [facility] Comment on above: Order Comment: Speci men Type: BLOOD SPECIMEN Ordering Facility: [facility] Address: [address] [place] [address] Performed By: #### 5 7021-8 #### [facility] CLIA [id number] [address] [place] [address] Hemoglobin (Bld) [Mass/Vol] 14.1 g/dL Normal 11.5-15.5 [facility] Comment on above: Order Comment: Speci men Type: BLOOD SPECIMEN Ordering Facility: [facility] Address: [address] [place] [address] Performed By: #### 5 7021-8 #### [facility] CLIA [id number] [address] [place] [address] Immature granulocytes (Bld) [#/Vol] 0.11 10*3/uL High <0.10 [facility] Comment on above: Order Comment: Speci men Type: BLOOD SPECIMEN Ordering Facility: [facility] Address: [address] [place] [address] Performed By: #### 5 7021-8 #### [facility] CLIA [id number] [address] [place] [address] Immature granulocytes/100 WBC (Bld) 1.1 % Normal [facility] Comment on above: Order Comment: Speci men Type: BLOOD SPECIMEN Ordering Facility: [facility] Address: [address] [place] [address] Performed By: #### 5 7021-8 #### [facility] CLIA [id number] [address] [place] [address] Lymphocytes (Bld) [#/Vol] 2.18 10*3/uL Normal 1.00-4.00 [facility] Comment on above: Order Comment: Speci men Type: BLOOD SPECIMEN Ordering Facility: [facility] Address: [address] [place] [address] Performed By: #### 5 7021-8 #### [facility] CLIA [id number] [address] [place] [address] Lymphocytes/100 WBC (Bld) 22.2 % Normal [facility] Comment on above: Order Comment: Speci men Type: BLOOD SPECIMEN Ordering Facility: [facility] Address: [address] [place] [address] Performed By: #### 5 7021-8 #### [facility] CLIA [id number] [address] [place] [address] MCH (RBC) [Entitic mass] 29.7 pg Normal 26.0-34.0 [facility] Comment on above: Order Comment: Speci men Type: BLOOD SPECIMEN Ordering Facility: [facility] Address: [address] [place] [address] Performed By: #### 5 7021-8 #### [facility] CLIA [id number] [address] [place] [address] MCHC (RBC) [Mass/Vol] 33.7 g/dL Normal 30.5-36.0 [facility] Comment on above: Order Comment: Speci men Type: BLOOD SPECIMEN Ordering Facility: [facility] Address: [address] [place] [address] Performed By: #### 5 7021-8 #### [facility] CLIA [id number] [address] [place] [address] MCV (RBC) [Entitic vol] 88.0 fL Normal 80.0-100.0 [facility] Comment on above: Order Comment: Speci men Type: BLOOD SPECIMEN Ordering Facility: [facility] Address: [address] [place] [address] [place] [address] Performed By: #### 5 7021-8 #### [facility] CLIA [id number] [address] [place] [address] Monocytes (Bld) [#/Vol] 0.34 10*3/uL Normal <0.87 [facility] Comment on above: Order Comment: Speci men Type: BLOOD SPECIMEN Ordering Facility: [facility] Address: [address] [place] [address] Performed By: #### 5 7021-8 #### [facility] CLIA [id number] [address] [place] [address] Monocytes/100 WBC (Bld) 3.5 % Normal [facility] Comment on above: Order Comment: Speci men Type: BLOOD SPECIMEN Ordering Facility: [facility] Address: [address] [place] [address] Performed By: #### 5 7021-8 #### [facility] CLIA [id number] [address] [place] [address] Neutrophils (Bld) [#/Vol] 7.06 10*3/uL Normal 1.45-7.50 [facility] Comment on above: Order Comment: Speci men Type: BLOOD SPECIMEN Ordering Facility: [facility] Address: [address] [place] [address] Performed By: #### 5 7021-8 #### [facility] CLIA [id number] [address] [place] [address] Neutrophils/100 WBC (Bld) 71.7 % Normal [facility] Comment on above: Order Comment: Speci men Type: BLOOD SPECIMEN Ordering Facility: [facility] Address: [address] [place] [address] Performed By: #### 5 7021-8 #### [facility] CLIA [id number] [address] [place] [address] 06386 Nucleated RBC (Bld) [#/Vol] 10*3/uL Normal <0.01 [facility] Comment on above: Order Comment: Speci men Type: BLOOD SPECIMEN Ordering Facility: [facility] Address: [address] [place] [address] Performed By: #### 5 7021-8 #### [facility] CLIA [id number] [address] [place] [address] 36091 Nucleated RBC/100 WBC (Bld) [Ratio] 0.0 /100 WBC Normal [facility] Comment on above: Order Comment: Speci men Type: BLOOD SPECIMEN Ordering Facility: [facility] Address: [address] [place] [id number] Performed By: #### 5 7021-8 #### [facility] CLIA [id number] [address] [place] [address] 29547 Platelet mean volume (Bld) [Entitic vol] 9.8 fL Normal 9.0-12.7 [facility] Comment on above: Order Comment: Speci men Type: BLOOD SPECIMEN Ordering Facility: [facility] Address: [address] [place] [address] Performed By: #### 5 7021-8 #### [facility] CLIA [id number] [address] [place] [address] 51530 Platelets (Bld) [#/Vol] 254 10*3/uL Normal 150-400 [facility] Comment on above: Order Comment: Speci men Type: BLOOD SPECIMEN Ordering Facility: [facility] Address: [address] [place] [address] Performed By: #### 5 7021-8 #### [facility] CLIA [id number] [address] [place] [address] 70075 RBC (Bld) [#/Vol] 4.75 10*6/uL Normal 3.90-5.20 [facility] Comment on above: Order Comment: Speci men Type: BLOOD SPECIMEN Ordering Facility: [facility] Address: [address] [place] [address] Performed By: #### 5 7021-8 #### [facility] CLIA [id number] [address] [place] [address] WBC (Bld) [#/Vol] 9.84 10*3/uL Normal 3.70-11.00 [facility] Comment on above: Order Comment: Speci men Type: BLOOD SPECIMEN Ordering Facility: [facility] Address: [address] [place] [address] Performed By: #### 5 7021-8 #### [facility] CLIA [id number] [address] [place] [address] [facility] CBC W AUTO DIFF BLDon Basophils/100 WBC (Bld) 0.6 % [facility] BASOPHILS # BLD AUTO 0.06 [facility] DIFFERENTIAL METHOD BLD Auto [facility] EOSINOPHIL # BLD AUTO 0.09 [facility] LYMPHOCYTES # BLD AUTO 2.[address] [facility] MONOCYTES # BLD AUTO 0.34 [facility] NEUTROPHILS # BLD AUTO 7.[address] [facility] NRBC # BLD AUTO <0.01 [facility] NRBC/100 WBC BLD-RTO 0 /[address] [facility] PLATELET # BLD AUTO [address] [facility] PMV BLD AUTO 9.8 fL 9.0 - 12.[address] [facility] WBC # BLD AUTO 9.[address] [facility] Eosinophils/100 WBC (Bld) 0.9 % [facility] Erythrocyte distribution width (RBC) [Ratio] 11.9 % 11.5 - 15.0 % [facility] Hematocrit (Bld) [Volume fraction] 41.8 % 36.0 - 46.0 % [facility] Hemoglobin (Bld) [Mass/Vol] 14.1 g/dL 11.5 - 15.5 g/dL [facility] IMM GRANULOCYTES # BLD AUTO 0.11 High [facility] IMM GRANULOCYTES/LEUK NFR BLD AUTO 1.1 % [facility] Interpretation and review of laboratory results Abnormal [facility] Lymphocytes/100 WBC (Bld) 22.2 % [facility] MCH (RBC) [Entitic mass] 29.7 pg 26.0 - 34.[address] [facility] MCHC (RBC) [Mass/Vol] 33.7 g/dL 30.5 - 36.0 g/dL [facility] MCV (RBC) [Entitic vol] 88 fL 80.0 - 100.[address] [facility] Monocytes/100 WBC (Bld) 3.5 % [facility] Neutrophils/100 WBC (Bld) 71.7 % [facility] RBC (Bld) [#/Vol] 4.75 10*6/uL 3.90 - 5.20 m/uL [facility] Specimen Type: BLOOD SPECIMEN Ordering Facility: [facility] Address: [address] [place] [address] Original Ordering Provider: [facility]24 CNOVSP Visit (SP) Office ( EMA) LEANA TRAN ([id number]) 1985 F Date Time Provider Department 09/30/24 9:30 AM MARGOT LIMON During your visit today, we recorded the following information about you: Temperature Pulse Respiration Blood pressure 97.5 degrees 70/minute 16/minute 129/80 Weight Height 104.3 kg 1.626 m Margot Liomn APRN.[employer] 09/30/2024 10:24 AM Signed NAME: Leana Tran CLINIC NO.: [id number] DATE OF SERVICE: September 30, 2024 (Sonam) [...] that th (more content not included)... Normal [facility] Comprehensive metabolic 2000 panelon 09-30-2024 Albumin [Mass/Vol] 4.5 g/dL Normal 3.9-4.9 [facility] Comment on above: Order Comment: Dulce Maria jules Type: BLOOD SPECIMEN Ordering Facility: [facility] Address: [address] [place] [address] Performed By: #### 2 4323-8 #### [facility] CLIA [id number] [address] [place] [address] 45734 ALP [Catalytic activity/Vol] 74 U/L Normal 34-123 [facility] Comment on above: Order Comment: Dulce Maria jules Type: BLOOD SPECIMEN Ordering Facility: [facility] Address: [address] [place] [address] Performed By: #### 2 4323-8 #### [facility] CLIA [id number] [address] [place] [address] ALT [Catalytic activity/Vol] 15 U/L Normal 7-38 [facility] Comment on above: Order Comment: Speci men Type: BLOOD SPECIMEN Ordering Facility: [facility] Address: [address] [place] [address] Performed By: #### 2 4323-8 #### [facility] CLIA [id number] [address] [place] [address] Anion gap [Moles/Vol] 10 mmol/L Normal 8-15 [facility] Comment on above: Order Comment: Speci men Type: BLOOD SPECIMEN Ordering Facility: [facility] Address: [address] [place], [place] [address] Performed By: #### 2 4323-8 #### [facility] CLIA [id number] [address] [place] [address] 86809 AST [Catalytic activity/Vol] 10 U/L Low 13-35 [facility] Comment on above: Order Comment: Speci men Type: BLOOD SPECIMEN Ordering Facility: [facility] Address: [address] [place], [place] [address] Performed By: #### 2 4323-8 #### [facility] CLIA [id number] [address] [place] [address] 85596 Bilirubin [Mass/Vol] 0.3 mg/dL Normal 0.2-1.3 [facility] Comment on above: Order Comment: Speci men Type: BLOOD SPECIMEN Ordering Facility: [facility] Address: [address] [place] [address] Performed By: #### 2 4323-8 #### [facility] CLIA [id number] [address] [place] [address] 76255 Calcium [Mass/Vol] 9.7 mg/dL Normal 8.5-10.2 [facility] Comment on above: Order Comment: Speci men Type: BLOOD SPECIMEN Ordering Facility: [facility] Address: [address] [place] [id number] Performed By: #### 2 4323-8 #### [facility] CLIA [id number] [address] [place] [address] Chloride [Moles/Vol] 104 mmol/L Normal 98-107 [facility] Comment on above: Order Comment: Speci men Type: BLOOD SPECIMEN Ordering Facility: [facility] Address: [address] [place] [address] Performed By: #### 2 4323-8 #### [facility] CLIA [id number] [address] [place] [address] 30299 CO2 [Moles/Vol] 25 mmol/L Normal 22-30 [facility] Comment on above: Order Comment: Speci men Type: BLOOD SPECIMEN Ordering Facility: [facility] Address: [address] [place] [address] Performed By: #### 2 4323-8 #### [facility] CLIA [id number] [address] [place] [address] 02325 Creatinine [Mass/Vol] 0.97 mg/dL High 0.58-0.96 [facility] Comment on above: Order Comment: Speci men Type: BLOOD SPECIMEN Ordering Facility: [facility] Address: [address] [place] [address] Performed By: #### 2 4323-8 #### [facility] CLIA [id number] [address] [place] [address] 15233 eGFRcr SerPlBld CKD-EPI 2020 76 mL/min/1.73m??? Normal >=60 [facility] Comment on above: Order Comment: Speci men Type: BLOOD SPECIMEN Ordering Facility: [facility] Address: [address] [place] [address] Result Comment: Maricarmen mated Glomerular Filtration Rate [...] GFR. Performed By: #### 2 4323-8 #### [facility] CLIA [id number] [address] [place] [address] 82170 Glucose [Mass/Vol] 145 mg/dL High 74-99 [facility] Comment on above: Order Comment: Dulce Maria jules Type: BLOOD SPECIMEN Ordering Facility: [facility] Address: [address] [address] Result Comment: The [place] Diabetes Association (ADA) provides guidance for cutoff [...] Standards of Medical Care in Diabetes 2016, [place] [employer] Association. Diabetes Care. 2016.39(Suppl 1). Performed By: #### 2 4323-8 #### [facility] CLIA [id number] [address] [place] [address] 58346 Potassium [Moles/Vol] 3.6 mmol/L Low 3.7-5.1 [facility] Comment on above: Order Comment: Dulce Maria jules Type: BLOOD SPECIMEN Ordering Facility: [facility] Address: [address] [place] [address] Performed By: #### 2 4323-8 #### [facility] CLIA [id number] [address] [place] [address] 53548 Protein [Mass/Vol] 6.7 g/dL Normal 6.3-8.0 [facility] Comment on above: Order Comment: Dulce Maria jules Type: BLOOD SPECIMEN Ordering Facility: [facility] Address: [address] [place] [address] Performed By: #### 2 4323-8 #### [facility] CLIA [id number] [address] [place] [address] Sodium [Moles/Vol] 139 mmol/L Normal 136-144 [facility] Comment on above: Order Comment: Speci men Type: BLOOD SPECIMEN Ordering Facility: [facility] Address: [address] [place] [address] Performed By: #### 2 4323-8 #### [facility] CLIA [id number] [address] [place] [address] 69693 Urea nitrogen [Mass/Vol] 19 mg/dL Normal 7-21 [facility] Comment on above: Order Comment: Speci men Type: BLOOD SPECIMEN Ordering Facility: [facility] Address: [address] [place] [address] Performed By: #### 2 4323-8 #### [facility] CLIA [id number] [address] [place], [place] [address] No Panel InformationOrdered By: Radiologist Radiology on 09-29-2024 [facility] Smeet Work Phone: No Panel Informationon 09-29 Radiology Study observation (narrative) [facility] XR Elbow - right 2 Viewson 0 09-29-[address] [address] XRay Report Signed Patient: LEANA TRAN MR#: [id number] : 1985 Acct:[id number] Age/Sex: 38 / F ADM Date: 09/29/24 Loc: LAB Attending Dr: Cas Dowell M.D. Ordering Physician: Cas Dowell M.D. Date of Service: 09/29/24 Procedure(s): XR elbow RT 2V Accession Number(s): [id number] cc: Cas Dowell M.D. [address] [address] Patient Name: LEANA TRAN MRN: [id number] date: 1985 Sex: F Assigned Patient Location: LAB Current Patient Location: LAB Accession/Order Number: [id number] Exam Date: 09/29/2024 13:00 Report Date: 09/29/2024 [...] Jr., D.O. 09/29/2024 1:44 PM Dictation Location: [place] [address] Electronically authenticated by: [id number] Y Date: 09/29/2024 13:44 Dictated By: Michael Price M.D. Signed By: 09/29/24 1346 DD/ 1344 TD/TT: Vacuum Caster: [facility] Radiology, Radiologi MD gayle - 09/29/2024 [place] [address] XRay Report Signed Patient: LEANA TRAN MR#: [id number] : 1985 Acct:[id number] Age/Sex: 38 / F ADM Date: 09/29/24 Loc: LAB Attending Dr: Cas Dowell M.D. Ordering Physician: Cas Dowell M.D. Date of Service: 09/29/24 Procedure(s): XR elbow RT 2V Accession Number(s): [id number] cc: Cas Dowell M.D. [place] [id number] Patient Name: LEANA TRAN MRN: [facility]:[id number] date: 1985 Sex: F Assigned Patient Location: LAB Current Patient Location: LAB Accession/Order Number: [id number] Exam Date: 09/29/2024 13:00 Report Date: 09/29/2024 [...] Jr., D.O. 09/29/2024 1:44 PM Dictation Location: [employer]23 Electronically authenticated by: [id number] Y Date: 09/29/2024 13:44 Dictated By: Michael Price M.D. Signed By: 09/29/24 1346 DD/ 134 TD/TT: Vacuum Caster: [facility] Radiology Study observation (narrative) [facility] XR Radius and Ulna - right 2 Viewson 09-29-2024 [place] [address] XRay Report Signed Patient: LEANA TRAN MR#: [id number] : 1985 Acct:[id number] Age/Sex: 38 / F ADM Date: 09/29/24 Loc: LAB Attending Dr: Cas Dowell M.D. Ordering Physician: Cas Dowell M.D. Date of Service: 09/29/24 Procedure(s): XR forearm RT 2V Accession Number(s): [id number] cc: Cas Dowell M.D. [place] [id number] Patient Name: LEANA TRAN MRN: [id number] date: 1985 Sex: F Assigned Patient Location: LAB Current Patient Location: LAB Accession/Order Number: [id number] Exam Date: 09/29/2024 13:00 Report Date: 09/29/2024 [...] PM Dictation Location: [employer]23 Electronically authenticated by: [id number] Y Date: 09/29/2024 13:43 Dictated By: Michael Price M.D. Signed By: 09/29/241345 DD/ 42 TD/TT: Vacuum Caster: [facility] Deven Dey MD - 09/29/2024 [place] [address] XRay Report Signed Patient: LEANA TRAN MR#: [id number] : 1985 Acct:[id number] Age/Sex: 38 / F ADM Date: 09/29/24 Loc: LAB Attending Dr: Cas Dowell M.D. Ordering Physician: Cas Dowell M.D. Date of Service: 09/29/24 Procedure(s): XR forearm RT 2V Accession Number(s): [id number] cc: Cas Dowell M.D. [address] [place] [address] Patient Name: LEANA TRAN MRN: [facility]:[id number] date: 1985 Sex: F Assigned Patient Location: LAB Current Patient Location: LAB Accession/Order Number: [id number] Exam Date: 09/29/2024 13:00 Report Date: 09/29/2024 13:43 At the request of: CAS DOWELL MD Procedure: XR forearm RT 2V RIGHT FOREARM - 2 views CLINICAL HISTORY: Fall. Arm pain COMPARISON: None FINDINGS: No focal soft tissue abnormality. No acute bony process. XR/XR forearm RT 2V IMPRESSION: NO ACUTE BONY PROCESS. Impression dictated by: Michael Price Jr., D.O. 09/29/2024 1:43 PM Dictation Location: [place] [address] Electronically authenticated by: [id number] Y Date: 09/29/2024 13:43 Dictated By: Michael Price M.D. Signed By: 09/29/241345 DD/ 42 TD/TT: Vacuum Caster: [facility] XR Wrist - right 2 Viewson 0 09-29-[address] [place] [address] XRay Report Signed Patient: LEANA TRAN MR#: [id number] : 1985 Acct:[id number] Age/Sex: 38 / F ADM Date: 09/29/24 Loc: LAB Attending Dr: Cas Dowell M.D. Ordering Physician: Cas Dowell M.D. Date of Service: 09/29/24 Procedure(s): XR wrist RT 2V Accession Number(s): [id number] cc: Cas Dowell M.D. The [place] [id number] Patient Name: LEANA TRAN MRN: [facility]:[id number] date: 1985 Sex: F Assigned Patient Location: LAB Current Patient Location: LAB Accession/Order Number: [id number] Exam Date: 09/29/2024 13:00 Report Date: 09/29/2024 [...] Jr., D.O. 09/29/2024 1:43 PM Dictation Location: [place] [address] Electronically authenticated by: [id number] Y Date: 09/29/2024 13:43 Dictated By: Michael Price M.D. Signed By: 09/29/24 1345 DD/ 1343 TD/TT: Vacuum Caster: [facility] RadiologyMildredogvince araujo MD - 09/29/2024 [place] [address] XRay Report Signed Patient: LEANA TRAN MR#: [id number] : 1985 Acct:[id number] Age/Sex: 38 / F ADM Date: 09/29/24 Loc: LAB Attending Dr: Cas Dowell M.D. Ordering Physician: Cas Dowell M.D. Date of Service: 09/29/24 Procedure(s): XR wrist RT 2V Accession Number(s): [id number] cc: Cas Dowell M.D. [place] [address] Patient Name: LEANA TRAN MRN: [id number] date: 1985 Sex: F Assigned Patient Location: LAB Current Patient Location: LAB Accession/Order Number: [id number] Exam Date: 09/29/2024 13:00 Report Date: 09/29/2024 [...] Jr., D.O. 09/29/2024 1:43 PM Dictation Location: [place] [address] Electronically authenticated by: [id number] Y Date: 09/29/2024 13:43 Dictated By: Michael Price M.D. Signed By: 09/29/24 1345 DD/ 1343 TD/TT: Vacuum Caster: [facility] Smeet XR Wrist - right 2 ViewsOrde red By: Radiologist Radiology on 09-29-2024 [facility] Smeet Work Phone: Orders Onlyon 09-24-2024 Orders Only [id number] Megan Tran 1985 F Date Provider Department Center 09/24/2024 Jens-KENYA HORAN [facility] C[facility] Family History Problem [...] Mother's Sister Alive Mother's Sister Alive [facility] Reminderson 09-17-2024 Reminders Reminders From: CHELO Choe APRN, [place] X To: EU - Administrative; Sent: 10/16/2023 12:40:17 EDT Show up: 06/14/2024 12:40:00 EDT Subject: Reminder Message Reminder Message Please schedule for 1 year follow-up Patient is scheduled for 10/09/2024 1020am [facility] Reminders Reminders From: Matt Nguyễn To: EU [...] ) Other: PROVIDER RELATED REMINDER:_ ( ) Rag Grader ( ) Call Pharmacy ( ) Call Lab ( ) Other: Special Instructions:_ Comments:_ LVM w/ pt stating they needed to call and get appointment scheduled. Patient has an appointment on 10/09/2024 1020am. [facility] X-ray reportOrdered By: Juan Francisco Price on 09-08-2024 Study report [facility] Main [address] [address] XRay Report Signed Patient: Leana Tran MR#: [id number] : 1985 Acct:[id number] Age/Sex: 38 / F ADM Date: 5 Loc: XDUCLY Room: Type: [place] CLI Attending Dr: JESSICA Guerrero APRNC Copies to: Oliva Becerra APRN~ Ordering Provider: [...] Jr., D.O. 09/08/2024 12:32 PM Dictation Location: [place] [address] Transcribed By: [facility] 09/08/24 1232 Dictated By: Michael Price Jr, DO 09/08/24 1223 Signed By: 09/08/24 1232 [facility] XR forearm RT 2V*on 09-09-19 XR forearm RT 2V* [facility] [place] [address] XRay Report Signed Patient: Leana Tran MR#: [id number] : 1985 Acct:[id number] Age/Sex: 38 / F ADM Date: 09/08/24 Loc: XDUC Room: Type: [place] CLI Attending Dr: Oliva Becerra APRN, [employer] PRACTITIONER-C Copies to: Oliva Becerra APRN Ordering Provider: [...] PROCESS. Impression dictated by: Michael Price Jr., Cassidy 09/08/2024 12:32 PM Dictation Location: [facility]--23 Transcribed By: [facility] 09/08/24 1232 Dictated By: Michael Price Jr, DO 09/08/24 1223 Signed By: 09/08/24 1232 Normal [facility] Orders Onlyon 08-25-2024 Orders Only [id number] Megan Tran 1985 F Date Provider Department Center 08/25/2024 Robinson-ABIEL MATTHEW [facility] CARD [facility] Heart[facility]AS Family History Problem [...] Mother's Sister Alive Mother's Sister Alive [facility] Cardiac echo study Procedure Ordered By: Gosia Rangel on 08-22-2024 Ao Root Index 0.78 cm/m2 [employer] Phone: Aortic Root 1.6 cm [employer] Phone: Aortic Sinus Valsalva 2.6 cm [employer] Phone: Aortic Sinus Valsalva Index 1.27 cm/m2 [employer] Phone: Ascending Aorta 2.2 cm [employer] Work Phone: Ascending Aorta Index 1.07 cm/m2 Bon [facility] [employer] Work Phone: AV Cusp Mmode 1.8 cm Bon Secjaida [employer] Work Phone: AV Mean Gradient 5 mmHg Bon Seco sally [employer] Work Phone: AV Mean Velocity 1 m/s Bon [facility] [employer] Work Phone: AV Peak Gradient 10 mmHg Bon Seco urs [employer] Work Phone: AV Peak Velocity 1.6 m/s Bon [facility] [employer] Work Phone: AV Velocity Ratio 0.75 Bon Sec jaida [employer] Work Phone: AV VTI 34.3 cm Bon [employer] Work Phone: Body surface area Derived from formula 2.14 m2 Bon [employer] Work Phone: E/E' Lateral 5.41 Bon [employer] Work Phone: EF BP 60 % 55 - 100 % Bon [employer] Work Phone: EF Physician 60 % Bon [employer] Work Phone: Est. RA Pressure 3 mmHg Bon Seco sally [employer] Work Phone: Fractional Shortening 2D 32 % 28 - 44 % [facility] Work Phone: IVSd 0.8 cm 0.6 - 0.9 cm [facility] [employer] Work Phone: LA Area 2C 16.6 cm2 Bon [employer] Work Phone: LA Area 4C 19.3 cm2 [facility] [employer] Work Phone: LA Major Bailey 5.5 cm [facility] [employer] Work Phone: LA Minor Bailey 4.9 cm Bon [employer] Work Phone: LA Volume BP 50 mL 22 - 52 mL [employer] Work Phone: LA Volume Index BP 24 ml/m2 16 - 34 ml/m2 [employer] Work Phone: LA Volume Index MOD A2C 21 ml/m2 16 - 34 ml/m2 [employer] Work Phone: LA Volume Index MOD A4C 25 ml/m2 16 - 34 ml/m2 [employer] Work Phone: LA Volume MOD A2C 44 mL 22 - 52 mL [employer] Work Phone: LA Volume MOD A4C 51 mL 22 - 52 mL [employer] Work Phone: LV E' Lateral Velocity 14.6 cm/s [employer] Work Phone: LV EDV A2C 86 mL [employer] Work Phone: LV EDV A4C 101 mL [employer] Work Phone: LV EDV Index A2C 42 mL/m2 [employer] Work Phone: LV EDV Index A4C 49 mL/m2 [employer] Work Phone: LV Ejection Fraction A2C 63 % [employer] Work Phone: LV Ejection Fraction A4C 59 % [employer] Work Phone: LV ESV A2C 32 mL [employer] Work Phone: LV ESV A4C 42 mL [employer] Work Phone: LV ESV Index A2C 16 mL/m2 [employer] Work Phone: LV ESV Index A4C 20 mL/m2 [employer] Work Phone: LV Mass 2D 122.3 g 67 - 162 g [employer] Work Phone: LV Mass 2D Index 59.6 g/m2 43 - 95 g/m2 [employer] Work Phone: LV RWT Ratio 0.34 [employer] Phone: LVIDd 4.7 cm 3.9 - 5.3 cm [facility] [employer] Work Phone: LVIDd Index 2.29 cm/m2 [facility] [employer] Work Phone: LVIDs 3.2 cm [employer] Work Phone: LVIDs Index 1.56 cm/m2 [employer] Phone: LVOT Mean Gradient 3 mmHg [employer] Work Phone: LVOT Peak Gradient 6 mmHg [employer] Work Phone: LVOT Peak Velocity 1.2 m/s [facility] [employer] Work Phone: LVOT VTI 26.3 cm [employer] Work Phone: LVOT:AV VTI Index 0.77 [facility] [employer] Phone: LVPWd 0.8 cm 0.6 - 0.9 cm [employer] Work Phone: MV A Velocity 0.54 m/s [facility] [employer] Work Phone: MV E Velocity 0.79 m/s [facility] [employer] Phone: MV E Wave Deceleration Time 174 ms [employer] Phone: MV E/A 1.46 [employer] Phone: IL Max Velocity 0.7 m/s [facility] [employer] Work Phone: Pulmonary Artery EDP 2 mmHg [facility] [employer] Work Phone: PV Max Velocity 1 m/s Hong chan [employer] Work Phone: PV Peak Gradient 4 mmHg Hong zavala [employer] Work Phone: RVSP 20 mmHg [employer] Phone: Sinotubular Junction 1.8 cm [employer] Phone: TAPSE 2.4 cm 1.7 cm [employer] Work Phone: TR Max Velocity 2.07 m/s Hong chan [email or web address] Phone: TR Peak Gradient 17 mmHg Hong zavala [employer] Work Phone: [employer] Phone: Cardiac echo study Procedure on 08-22-2024 Left Ventricle: Norm al left ventricular systolic function with a visually [...] Image quality: adequate. No contrast was given. [facility] CV CPACS Radiology Study observation (narrative) Hong Dang [facility] 36on 08-13-2024 36 I faxed the order to number given. [address] outpt mohinder adams is requesting the order to be faxed to their facility. Please send to fax#[phone]. Thank you This phone message was created by the Ambulatory float staff. If you need instructional support assistant follow up regarding this patient, please make your appropriate clinic staff member aware. Thank you. [facility] Telemedicineon 08-12-2024 Telemedicine [id number] Megan Tran 1985 F Date Provider Department Center 08/12/2024 [facility] [facility] CARD [place] Heart[facility]AS Family History Problem [...] Sister Alive Mother's Sister Alive Level of Service:[id number] [place] OFFICE/OUTPATIENT ESTABLISHED LOW MDM 20 MIN Reason for Visit and Comments: Telehealth Audio/video Visit [871] [facility] ALL CBC WITH AUTO DIFFon BASOPHILS ABSOLUTE AUTO 0 [facility] Basophils/100 WBC (Bld) 0.6 % 0.2 - 2.0 % [facility] Eosinophils/100 WBC (Bld) 2.6 % 0.9 - 7.0 % [facility] Erythrocyte distribution width (RBC) [Ratio] 11.6 % 11.0 - 15.0 % [facility] Hematocrit (Bld) [Volume fraction] 43.2 % 36.0 - 48.0 % [facility] Hemoglobin (Bld) [Mass/Vol] 14.7 g/dL 12.0 - 16.0 g/dL [facility] IMMATURE GRANULOCYTES ABS AUTO 0.[address] [facility] Immature granulocytes/100 WBC (Bld) 0.3 % 0.0 - 0.5 % [facility] LYMPHOCYTES ABSOLUTE AUTO 1.[address] [facility] Lymphocytes/100 WBC (Bld) 22.8 % 20.5 - 60.0 % [facility] MCH (RBC) [Entitic mass] 29.6 pg 26.7 - 34.[address] [facility] MCHC (RBC) [Mass/Vol] 34 g/dL 29.9 - 35.2 g/dL [facility] MCV (RBC) [Entitic vol] 86.9 fL 81.0 - 99.[address] [facility] MONOCYTES ABSOLUTE AUTO 0.[address] [facility] Monocytes/100 WBC (Bld) 5.7 % 1.7 - 12.0 % [facility] NEUTROPHILS ABSOLUTE AUTO 4.[address] [facility] Neutrophils/100 WBC (Bld) 68 % 43.0 - 75.0 % [facility] Platelet mean volume (Bld) [Entitic vol] 10.1 fL 9.5 - 13.[address] [facility] TBH EO # 0.[address] [facility] PLT [address] [facility] TB RBC 4.[address] [facility] TB WBC 6.[address] [facility] Orders Onlyon 07-09-2024 Orders Only [id number] Megan Tran 1985 F Date Provider Department Center 07/09/2024 Jens-KENYA HORAN [facility] CARD [place] Heart[facility] Family History Problem [...] Grandmother Son Alive Son Alive Son Alive [facility] 36on 05-23-2024 36 Pt is unable to find any pyridostigmine ER 180 mg in stock. She was on the short acting last time this happened. Short acting sent to the pharmacy [facility] 36 Pt notified the pyridostigmine ER is on back order. She is going to call around to see if she can find it in stock [facility] ALL DHEA SULFATEon 5 DHEA-SULFATE 60.8 ug/dL 57.3 - 279.2 ug/dL [facility] Comment on above: Performed at: [facility] [address] [place] [address] [id number] Filler Operator: Zacarias Sage PhD, Phone: [phone] No Panel Informationon 05-[address] [facility] SRMCOH TESTOSTERONE FREE/TOT EQUILIBon 05-07-2024 FREE TESTOSTERONE(DIRECT) 1.2 pg/mL 0.0 - 4.2 pg/mL [facility] Comment on above: Performed at: [facility] [address] [place] [address] [id number] Filler Operator: Zacarias Sage PhD, Phone: [phone] Performed at: [address] [id number] Filler Operator: Guerrero Bojorquez MD, Phone: [phone] Testosterone [Mass/Vol] 12 ng/dL 8 - 60 ng/dL [facility] ALLERGENS W/COMP RFLX AREA 5 on 05-02-2024 CLASS DESCRIPTION Comment . [facility] Comment on above: Levels of Specific I gE Class Description of Class ----- < 0.10 0 Negative 0.10 - 0.31 0/I Equivocal/Low 0.32 - 0.55 I Low 0.56 - 1.40 II Moderate 1.41 - 3.90 III High 3.91 - 19.00 IV Very High 19.01 - 100.00 V Very High >100.00 Very High B063-VQG D PTERONYSSINUS <0.10 Class 0 kU/L [facility] K530-OZA D FARINAE <0.10 Class 0 kU/L [facility] M349-NBM CAT DANDER <0.10 Class 0 kU/L [facility] J572-ENK DOG DANDER <0.10 Class 0 kU/L [facility] W483-HUS MOUSE URINE <0.10 Class 0 kU/L [facility] Comment on above: Performed at: [address] [id number] Filler Operator: Guerrero Bojorquez MD, Phone: [phone] A187-DLC BERMUDA GRASS <0.10 Class 0 kU/L [facility] I280-EJJ LAURYN GRASS <0.10 Class 0 kU/L [facility] P903-TOD COCKROACH, BOTSWANAN <0.10 Class 0 kU/L [facility] IMMUNOGLOBULIN E, TOTAL <[address] [facility] Interpretation and review of laboratory results Abnormal [facility] W468-AEI PENICILLIUM CHRYSOGEN <0.10 Class 0 kU/L [facility] G864-PYO CLADOSPORIUM HERBARUM <0.10 Class 0 kU/L [facility] X277-ILP ASPERGILLUS FUMIGATUS <0.10 Class 0 kU/L [facility] O668-ZEY ALTERNARIA ALTERNATA <0.10 Class 0 kU/L [facility] S087-YGN MAPLE/BOX ELDER <0.10 Class 0 kU/L [facility] H072-WKK COMMON SILVER BIRCH <0.10 Class 0 kU/L [facility] N099-XWL CEDAR, MOUNTAIN <0.10 Class 0 kU/L [facility] U892-ROV OAK, WHITE <0.10 Class 0 kU/L [facility] D245-EJZ ELM, PITCAIRN ISLANDER <0.10 Class 0 kU/L [facility] V620-UQY WALNUT <0.10 Class 0 kU/L [facility] Q933-ZQY MAPLE LEAF SYCAMORE <0.10 Class 0 kU/L [facility] Q580-DVQ COTTONWOOD <0.10 Class 0 kU/L [facility] O611-TCO REEMA, WHITE <0.10 Class 0 kU/L [facility] S991-KUT PECAN, HICKORY <0.10 Class 0 kU/L [facility] O703-UFN WHITE MULBERRY <0.10 Class 0 kU/L [facility] P711-TGS RAGWEED, SHORT <0.10 Class 0 kU/L [facility] V544-SIN THISTLE, MALAWIAN <0.10 Class 0 kU/L [facility] F675-QNC PIGWEED, COMMON <0.10 Class 0 kU/L [facility] P884-NKW SHEEP SORREL <0.10 Class 0 kU/L [facility] MLR HEMOGLOBIN A1Con 025 Glucose [Mass/Vol] 120 mg/dL [facility] HbA1c (Bld) [Mass fraction] 5.8 % 4.5 - 6.2 % [facility] Comment on above: ADA RECOMMENDED LIMI T 4.0 - 6.0 ADA THERAPEUTIC TARGET < 7.0 ACTION SUGGESTED > 7.0 [facility] FREE T3on 02-05-2024 Free T3 [Mass/Vol] 2.70 pg/mL Normal 2.50-3.90 [facility] Comment on above: Performed By: #### 3 016-3, 305-0, 7 #### [facility] ([id number]) [address], [address] [place] [address] FREE T4on 02-05-2024 Free T4 [Mass/Vol] 0.75 ng/dL Normal 0.61-1.60 [facility] Comment on above: Performed By: #### 3 016-3, 305-0, 3027 #### [facility] ([id number]) [address], [address] [place] [address] TSH Qnon 02-05-2024 TSH 0.44 uIU/mL Low 0.49-4.67 [facility] Comment on above: Performed By: #### 3 016-3, 305-0, 3027 #### [facility] ([id number]) [address], [address] [place] [id number] Measles (Rubeola) Imon 12-27 Measles (Rubeola) Im 2.45 Normal >1.09 [facility] Comment on above: Result Comment: Interpretation: IMMUNE Reference Range: <0.91 Not Immune 0.91-1.09 Equivocal >1.09 Immune Performed By: #### R UBI, BALTAZAR, VZI, GRICELDA #### [facility] Center[facility], [facility] [address] [place] [address] [id number] Filler Operator: Emanuel Reaves MD Mumps,Immun,Abon 12-28-2023 Mumps,Immun,Ab 3.42 Normal >1.09 [facility] Comment on above: Result Comment: Interpretation: IMMUNE Reference Range: <0.91 Not Immune 0.91-1.09 Equivocal >1.09 Immune Performed By: #### R UBI, BALTAZAR, VZI, GRICELDA #### [facility] [employer] [address] [place] [address] [phone] Filler Operator: Emanuel Reaves MD VZ Immunityon 12-28-2023 VZ Immunity 1.85 Normal >1.09 [facility] Comment on above: Result Comment: Interpretation: IMMUNE Reference Range: <0.91 Not Immune 0.91-1.09 Equivocal >1.09 Immune Performed By: #### R UBI, BALTAZAR, VZI, GRICELDA #### [facility] [employer] [address] [place] [address] [phone] Filler Operator: Emanuel Reaves MD PT RUBELLA AB, IGGon 12-26 PT RUBELLA AB, IGG 62.7 IU/mL [facility] Comment on above: <10 NON REACTIVE Negative for Anti-Rubella IgG >=10 REACTIVE Positive for Anti Rubella IgG The presence of IgG antibody to Rubella virus is an indication of previous exposure either by prior infection or vaccination. Original Ordering Pr ovider: IVORY ORDAZ [facility] Rubella Ab, IgGon 12-27-2023 Rubella Ab, IgG 62.7 IU/mL Normal [facility] Comment on above: Result Comment: <10 NON REACTIVE Negative for Anti-Rubella IgG >=10 REACTIVE Positive for Anti Rubella IgG The presence of IgG antibody to Rubella virus is an indication of previous exposure either by prior infection or vaccination. Performed By: #### R UBI, BALTAZAR, VZI, GRICELDA #### [facility] Center[facility] [employer], [employer] [facility] [place] [address] Filler Operator: Emanuel Reaves MD Rubella antibody, IgGon 11-2 Rubella virus IgG IA Ql 62.7 IU/mL [facility] Comment on above: <10 NON REACTIVE Negative for Anti-Rubella IgG >=10 REACTIVE Positive for Anti Rubella IgG The presence of IgG antibody to Rubella virus is an indication of previous exposure either by prior infection or vaccination. [facility] IGP,APTIMA HPV,AGE GDLNon AGE GDLN ACOG TESTING Note . [facility] Comment on above: TESTS RESULT FLAG U NITS REF RANGE LAB Clinician Provided Cytology Information Source.............Vagina No. of containers..01 ThinPrep Vial Age Algo ACOG Ashia... FLAG LEGEND: L-Low Normal,H-High Normal,LL-Alert Low,HH-Alert High <-Panic Low,>-Panic High,A-Abnormal,AA-Critical Abnormal Performed at: 01 =G [address] [address] Maryjo Saez MD, HPV APTIMA Negative Negative [facility] Comment on above: This nucleic acid am plification test detects fourteen high- risk HPV types (16,18,31,33,35,39,45,51,52,56,58,59,66,68) without differentiation. Performed at: = - [address] [id number] Filler Operator: Maryjo Saez MD, Phone: [phone] Performed at: - [facility], [place] [id number] Filler Operator: Maryjo Saez MD, Phone: [phone] IGP, APTIMA HPV, RFX 16/18,[address] [facility] Comment on above: TESTS RESULT FLAG UN ITS REF RANGE LAB DIAGNOSIS: 02 NEGATIVE FOR INTRAEPITHELIAL LESION OR MALIGNANCY. Specimen adequacy: 02 Satisfactory for evaluation. No endocervical component is identified. Performed by: 02 Kelly Burns, Packaging Sales Representative (ASCP) . 02 Note: Note 02 The Pap [...] High,A-Abnormal,AA-Critical Abnormal Performed at: 02 WB [facility] [address] [place] [address] Maryjo Saez MD, SPATULA-ALONE [facility] ALL THYROXINE (T4) FREEon Free T4 [Mass/Vol] 0.89 ng/dL 0.76 - 1.46 ng/dL [facility] Telemedicineon 10-10-2023 Telemedicine [id number] Megan Tran 1985 F Date Provider Department Center 10/10/2023 MACRINA FISCHER [facility] CARD [place] [facility] Family History Problem [...] Alive Son Alive Son Alive Level of Service:50507 [place] OFFICE/OUTPATIENT ESTABLISHED LOW MDM 20 MIN Reason for Visit and Comments: Orthostatic Intolerance [Other] Normal [facility] CBC W AUTO DIFF BLDon Basophils/100 WBC (Bld) 0.7 % [facility] BASOPHILS # BLD AUTO 0.04 [facility] DIFFERENTIAL METHOD BLD Auto [facility] EOSINOPHIL # BLD AUTO 0.15 [facility] LYMPHOCYTES # BLD AUTO 1.[address] [facility] MONOCYTES # BLD AUTO 0.24 [facility] NEUTROPHILS # BLD AUTO 4.[address] [facility] NRBC # BLD AUTO <0.01 [facility] NRBC/100 WBC BLD-RTO 0.0 /[address] [facility] PLATELET # BLD AUTO [address] [facility] PMV BLD AUTO 10.0 fL 9.0 - 12.[address] [facility] WBC # BLD AUTO 5.[address] [facility] Eosinophils/100 WBC (Bld) 2.6 % [facility] Erythrocyte distribution width (RBC) [Ratio] 11.6 % 11.5 - 15.0 % [facility] Hematocrit (Bld) [Volume fraction] 41.7 % 36.0 - 46.0 % [facility] Hemoglobin (Bld) [Mass/Vol] 14.7 g/dL 11.5 - 15.5 g/dL [facility] IMM GRANULOCYTES # BLD AUTO 0.[address] [facility] IMM GRANULOCYTES/LEUK NFR BLD AUTO 0.5 % [facility] Lymphocytes/100 WBC (Bld) 21.4 % [facility] MCH (RBC) [Entitic mass] 30.2 pg 26.0 - 34.[address] [facility] MCHC (RBC) [Mass/Vol] 35.3 g/dL 30.5 - 36.0 g/dL [facility] MCV (RBC) [Entitic vol] 85.8 fL 80.0 - 100.[address] [facility] Monocytes/100 WBC (Bld) 4.2 % [facility] Neutrophils/100 WBC (Bld) 70.6 % [facility] RBC (Bld) [#/Vol] 4.86 10*6/uL 3.90 - 5.20 m/uL [facility] Specimen Type: BLOOD SPECIMEN Ordering Facility: [facility] Address: [address] [place] [address] Original Ordering Provider: [place] [facility] Hemoglobin [id number] By: Julianne Kong on 01-01-[address] [facility] CELIAC ANTIBODIES PROFILEon 06-16-2022 Deamidated Gliadin Abs, IgA 26 units Critically high 0-[address] [facility] Comment on above: Result Comment: Nega tive 0 - 19 Weak Positive 20 - 30 Moderate to Strong Positive >30 Performed By: #### C BC #### [facility] [address] [address] [address] Nilton Mccall Deamidated Gliadin Abs, IgG 5 units Normal 0-19 [facility] Comment on above: Result Comment: Nega tive 0 - 19 Weak Positive 20 - 30 Moderate to Strong Positive >30 Performed By: #### C BC #### [facility] [address] [place] [address] Dr. Nilton Mccall Endomysial Antibody IgA Negative Normal Negative [facility] Comment on above: Performed By: #### C BC #### [facility] [address] [place] [address] Dr. Nilton Mccall Immunoglobulin A, Qn, Serum 205 mg/dL Normal 87-352 [facility] Comment on above: Performed By: #### C BC #### [facility] [address] [place] [address] Dr. Nilton Mccall t-Transglutaminase (tTG) IgA <2 [...] enteropathy. Performed By: #### C BC #### [facility] [address] [place] [address] Dr. Nilton Mccall t-Transglutaminase (tTG) IgG 3 U/mL Normal 0-5 [facility] Comment on above: Result Comment: Nega tive 0 - 5 Weak Positive 6 - 9 Positive >9 Performed By: #### C BC #### [facility] [address] [place] [address] Dr. Nilton Mccall CBC AUTO DIFFon 06-15-2022 BASO # 0.0 103/ul Normal 0.0-0.[address] [facility] Comment on above: Performed By: #### C BC #### [facility] [address] [place] [address] Dr. Nilton Mccall Basophils/100 WBC (Bld) 0.5 % Normal 0.2-2.[address] [facility] Comment on above: Performed By: #### C BC #### [facility] [address] [place] [address] Dr. Nilton Mccall EO # 0.2 103/ul Normal 0.0-0.[address] [facility] Comment on above: Performed By: #### C BC #### [facility] [address] [place] [address] Dr. Nilton Mccall Eosinophils/100 WBC (Bld) 2.8 % Normal 0.9-7.[address] [facility] Comment on above: Performed By: #### C BC #### [facility] [address] [place] [address] Dr. Nilton Mccall Erythrocyte distribution width (RBC) [Ratio] 11.8 % Normal 11.0-15.[address] [facility] Comment on above: Performed By: #### C BC #### [facility] [address] [place] [address] Dr. Nilton Mccall Hematocrit (Bld) [Volume fraction] 41.8 % Normal 36.0-48.[address] [facility] Comment on above: Performed By: #### C BC #### [facility] [address] [place] [address] Dr. Nilton Mccall Hemoglobin (Bld) [Mass/Vol] 14.2 g/dL Normal 12.0-16.[address] [facility] Comment on above: Performed By: #### C BC #### [facility] [address] [place] [address] Dr. Nilton Mccall IG # 0.03 10e3/ul Normal 0.00-0.[address] [facility] Comment on above: Performed By: #### C BC #### [facility] [address] [place] [address] Dr. Nilton Mccall IG % 0.4 % Normal 0.0-0.[address] [facility] Comment on above: Performed By: #### C BC #### [facility] [address] [place] [address] Dr. Nilton Mccall LYMPH # 2.3 103/ul Normal 1.2-3.[address] [facility] Comment on above: Performed By: #### C BC #### [facility] [address] [place] [address] Dr. Nilton Mccall Lymphocytes/100 WBC (Bld) 28.8 % Normal 20.5-60.[address] [facility] Comment on above: Performed By: #### C BC #### [facility] [address] [place] [address] Dr. Nilton Mccall MANUAL DIFF REQ NO Normal [facility] Comment on above: Performed By: #### C BC #### [facility] [address] [place] [address] Dr. Nilton Mccall MCH (RBC) [Entitic mass] 29.4 pg Normal 26.7-34.[address] [facility] Comment on above: Performed By: #### C BC #### [facility] [address] [place] [address] Dr. Nilton Mccall MCHC (RBC) [Mass/Vol] 34.0 g/dL Normal 29.9-35.[address] [facility] Comment on above: Performed By: #### C BC #### [facility] [address] [place] [address] Dr. Nilton Mccall MCV (RBC) [Entitic vol] 86.5 fL Normal 81.0-99.[address] [facility] Comment on above: Performed By: #### C BC #### [facility] [address] [place] [address] Dr. Nilton Mccall MONO # 0.4 103/ul Normal 0.3-0.[address] [facility] Comment on above: Performed By: #### C BC #### [facility] [address] [place] [address] Dr. Nilton Mccall Monocytes/100 WBC (Bld) 4.5 % Normal 1.7-12.[address] [facility] Comment on above: Performed By: #### C BC #### [facility] [address] [place] [address] Dr. Nilton Mccall NEUT # 5.0 103/ul Normal 1.4-6.5 [facility] Comment on above: Performed By: #### C BC #### [facility] [address] [place] [address] Dr. Nilton Mccall Neutrophils/100 WBC (Bld) 63.0 % Normal 43.0-75.[address] [facility] Comment on above: Performed By: #### C BC #### [facility] [address] [address] [address] Nilton Mccall Platelet mean volume (Bld) [Entitic vol] 9.5 fL Normal 9.5-13.[address] [facility] Comment on above: Performed By: #### C BC #### [facility] [address] [address] [address] Nilton Mccall PLT 279 103/ul Normal 150-450 [facility] Comment on above: Performed By: #### C BC #### [facility] [address] [place] [address] Dr. Nilton Mccall RBC 4.83 106/ul Normal 4.20-5.[address] [facility] Comment on above: Performed By: #### C BC #### [facility] [address] [place] [address] Dr. Nilton Mccall WBC 7.9 103/ul Normal 4.0-11.[address] [facility] Comment on above: Performed By: #### C BC #### [facility] [address] [place] [address] Dr. Nilton Mccall GLYCOHEMOGLOBIN A1Con 2022 ADA RECOMMENDATION SEE BELOW Normal [facility] Comment on above: Result Comment: ADA RECOMMENDED LIMIT 4.0 - 6.0 ADA THERAPEUTIC TARGET < 7.0 ACTION SUGGESTED > 7.0 Performed By: #### C MP #### [facility] [address] [place] [address] Dr. Nilton Mccall Glucose [Mass/Vol] 117 mg/dL Normal [facility] Comment on above: Performed By: #### C MP #### [facility] [address] [place] [address] Dr. Nilton Mccall HbA1c (Bld) [Mass fraction] 5.7 % Normal 4.5-6.[address] [facility] Comment on above: Performed By: #### C MP #### [facility] [address] [place] [address] Dr. Nilton Mccall VIT B12 AND FOLATEon 023 Cobalamin (Vitamin B12) [Mass/Vol] 539.0 pg/mL Normal 193.0-986. [address] [facility] Comment on above: Performed By: #### C BC #### [facility] [address] [place] [address] Dr. Nilton Mccall FOLATE 16.40 ng/mL Normal 8.60-58.[address] [facility] Comment on above: Performed By: #### C BC #### [facility] [address] [place] [address] Dr. Nilton Mccall VITAMIN D 25 OHon 06-15-2022 VIT D 25-OH 41.2 ng/mL Normal [facility] Comment on above: Performed By: #### C BC #### [facility] [address] [place] [address] Dr. Nilton Mccall VIT D RANGES SEE BELOW Normal [facility] Comment on above: Result Comment: <20 ng/mL Vit D deficient 20 - <30 ng/mL Vit D insufficient 30 - 100 ng/mL Vit D sufficient >100 ng/mL Potential Toxicity Performed By: #### C BC #### [facility] [address] [place] [address] Dr. Nilton Mccall FREE T3on 06-05-2022 FREE T3 2.39 pg/mlL Normal 2.18-3.[address] [facility] Comment on above: Performed By: #### T SH, FT3 #### [facility] [address] [place] [address] Dr. Nilton Mccall FREE T4on 06-05-2022 Free T4 [Mass/Vol] 0.89 ng/dL Normal 0.76-1.46 [facility] Comment on above: Performed By: #### C MP #### [facility] [address] [place] [address] Dr. Nilton Mccall TSHon 06-05-2022 TSH 1.431 uIU/mL Normal 0.358-3.[address] [facility] Comment on above: Performed By: #### T SH, FT3 #### [facility] [address] [place] [address] Dr. Nilton Mccall PLATELET TRANSMISSION ELECTR ON MICROSCOPIC STUDYon 03-29-2022 PLATELET TEM Performed Normal [facility] Comment on above: Order Comment: Dulce Maria jules Type: BLOOD SPECIMEN Ordering Facility: [facility] Address: [place] [address] Performed By: #### P LTEMS #### [facility] CLIA [id number] [address] [place] [address] PTEM INTERPRETATION SEE NOTE Normal [facility] Comment on above: Order Comment: Dulce Maria jules Type: BLOOD SPECIMEN Ordering Facility: [facility] Address: [address] [id number] Result Comment: IMPR ESSION: Platelet transmission electron [...] and its performance characteristics determined by [facility] in a manner consistent with CLIA requirements. This test has not been cleared or approved by the U.S. Food and Drug Administration. Test Performed by: [facility] [address] [place] [address] Filler Operator: Shree Norwood M.D. Ph.D.; CLIA# [id number] Performed By: #### P LTEMS #### [facility] CLIA [id number] [address] [place] [address] T4, Freeon 02-17-2022 Thyroxine, Free 1.34 ng/dL 0.93 - 1.70 ng/dL [facility] TSH with Reflexon 02-17-2022 Interpretation and review of laboratory results Abnormal [facility] TSH Qn 0.08 m[IU]/L Low [facility] US KIDNEYSon 12-26-2021 US KIDNEYS EXAMINATION: US RYLEE COELHO HISTORY: Elodia hematuria COMPARISON: 10/20/2020, 11/14/2021 TECHNIQUE: [...] BELÉN ANDRADE Date: 2021-12-26 07:22 Normal [facility] CBC AUTO DIFFon 12-12-2021 BASO # 0.0 103/ul Normal 0.0-0.[address] [facility] Comment on above: Performed By: #### C MP #### [facility] [address] [place] [address] Dr. Nilton Mccall Basophils/100 WBC (Bld) 0.5 % Normal 0.2-2.0 [facility] Comment on above: Performed By: #### C MP #### [facility] [address] [place] [address] Dr. Nilton Mccall EO # 0.2 103/ul Normal 0.0-0.7 [facility] Comment on above: Performed By: #### C MP #### [facility] [address] [place] [address] Dr. Nilton Mccall Eosinophils/100 WBC (Bld) 3.2 % Normal 0.9-7.[address] [facility] Comment on above: Performed By: #### C MP #### [facility] [address] [place] [address] Dr. Nilton Mccall Erythrocyte distribution width (RBC) [Ratio] 11.9 % Normal 11.0-15.[address] [facility] Comment on above: Performed By: #### C MP #### [facility] [address] [place] [address] Dr. Nilton Mccall Hematocrit (Bld) [Volume fraction] 42.8 % Normal 36.0-48.[address] [facility] Comment on above: Performed By: #### C MP #### [facility] [address] [place] [address] Dr. Nilton Mccall Hemoglobin (Bld) [Mass/Vol] 14.4 g/dL Normal 12.0-16.[address] [facility] Comment on above: Performed By: #### C MP #### [facility] [address] [place] [address] Dr. Nilton Mccall IG # 0.02 10e3/ul Normal 0.00-0.[address] [facility] Comment on above: Performed By: #### C MP #### [facility] [address] [place] [address] Dr. Nilton Mccall IG % 0.3 % Normal 0.0-0.[address] [facility] Comment on above: Performed By: #### C MP #### [facility] [address] [place] [address] Dr. Nilton Mccall LYMPH # 1.4 103/ul Normal 1.2-3.8 [facility] Comment on above: Performed By: #### C MP #### [facility] [address] [place] [address] Dr. Nilton Mccall Lymphocytes/100 WBC (Bld) 22.3 % Normal 20.5-60.[address] [facility] Comment on above: Performed By: #### C MP #### [facility] [address] [place] [address] Dr. Nilton Mccall MANUAL DIFF REQ NO Normal [facility] Comment on above: Performed By: #### C MP #### [facility] [address] [place] [address] Dr. Nilton Mccall MCH (RBC) [Entitic mass] 28.9 pg Normal 26.7-34.[address] [facility] Comment on above: Performed By: #### C MP #### [facility] [address] [place] [address] Dr. Nilton Mccall MCHC (RBC) [Mass/Vol] 33.6 g/dL Normal 29.9-35.[address] [facility] Comment on above: Performed By: #### C MP #### [facility] [address] [place] [address] Dr. Nilton Mccall MCV (RBC) [Entitic vol] 85.9 fL Normal 81.0-99.[address] [facility] Comment on above: Performed By: #### C MP #### [facility] [address] [place] [address] Dr. Nilton Mccall MONO # 0.3 103/ul Normal 0.3-0.[address] [facility] Comment on above: Performed By: #### C MP #### [facility] [address] [place] [address] Dr. Nilton Mccall Monocytes/100 WBC (Bld) 4.9 % Normal 1.7-12.[address] [facility] Comment on above: Performed By: #### C MP #### [facility] [address] [place] [address] Dr. Nilton Mccall NEUT # 4.4 103/ul Normal 1.4-6.5 [facility] Comment on above: Performed By: #### C MP #### [facility] [address] [place] [address] Dr. Nilton Mccall Neutrophils/100 WBC (Bld) 68.8 % Normal 43.0-75.[address] [facility] Comment on above: Performed By: #### C MP #### [facility] [address] [place] [address] Dr. Nilton Mccall Platelet mean volume (Bld) [Entitic vol] 9.9 fL Normal 9.5-13.[address] [facility] Comment on above: Performed By: #### C MP #### [facility] [address] [address] [address] Nilton Mccall PLT 237 103/ul Normal 150-[address] [facility] Comment on above: Performed By: #### C MP #### [facility] [address] [address] [address] Nilton Mccall RBC 4.98 106/ul Normal 4.20-5.[address] [facility] Comment on above: Performed By: #### C MP #### [facility] [address] [address] [address] Nilton Mccall WBC 6.3 103/ul Normal 4.0-11.[address] [facility] Comment on above: Performed By: #### C MP #### [facility] [address] [place] [address] Dr. Nilton Mccall GLYCOHEMOGLOBIN A1Con 2021 ADA RECOMMENDATION SEE BELOW Normal [facility] Comment on above: Result Comment: ADA RECOMMENDED LIMIT 4.0 - 6.0 ADA THERAPEUTIC TARGET < 7.0 ACTION SUGGESTED > 7.0 Performed By: #### P T, PTT #### [facility] [address] [place] [address] Dr. Nilton Mccall Glucose [Mass/Vol] 120 mg/dL Normal [facility] Comment on above: Performed By: #### P T, PTT #### [facility] [address] [place] [address] Dr. Nilton Mccall HbA1c (Bld) [Mass fraction] 5.8 % Normal 4.5-6.[address] [facility] Comment on above: Performed By: #### P T, PTT #### [facility] [address] [place] [address] Dr. Nilton Mccall LIPID PROFILEon 12-12-2021 CHOL-HDL RATIO NORM SEE BELOW Normal [facility] Comment on above: Result Comment: 3.3 - 4.4 LOW RISK 4.4 - 7.1 AVERAGE RISK 7.1 - 11.0 MODERATE RISK >11.0 HIGH RISK Performed By: #### P T, PTT #### [facility] [address] [address] [address] Nilton Mccall Cholesterol [Mass/Vol] 225 mg/dL Critically high <=[address] [facility] Comment on above: Performed By: #### P T, PTT #### [facility] [address] [address] [address] Nilton Mccall Cholesterol in HDL [Mass/Vol] 32 mg/dL Critically low 40-[address] [facility] Comment on above: Performed By: #### P T, PTT #### [facility] [address] [address] [address] Nilton Mccall Cholesterol in LDL [Mass/Vol] 132.8 mg/dL Normal [facility] Comment on above: Performed By: #### P T, PTT #### [facility] [address] [place] [address] Dr. Nilton Mccall Cholesterol.total/Ch olesterol in HDL [Mass ratio] 7.0 {ratio} Normal [facility] Comment on above: Performed By: #### P T, PTT #### [facility] [address] [address] [address] Nilton Mccall HDL NORMAL > or = 60 mg/dl - LO W CARDIOVASCULAR RISK <40 mg/dl - HIGH CARDIOVASCULAR RISK Normal [facility] Comment on above: Performed By: #### P T, PTT #### [facility] [address] [address] [address] Nilton Mccall LDL CALC NORMAL SEE BELOW Normal [facility] Comment on above: Result Comment: <100 mg/dl OPTIMAL 100 - 129 mg/dl NEAR OR ABOVE OPTIMAL 130 - 159 mg/dl BORDERLINE HIGH 160 - 189 mg/dl HIGH >190 mg/dl VERY HIGH Performed By: #### P T, PTT #### [facility] [address] [address] [address] Nilton Mccall Triglyceride [Mass/Vol] 301 mg/dL Critically high <=[address] [facility] Comment on above: Performed By: #### P T, PTT #### [facility] [address] [address] [address] Nilton Mccall VLDL CALC 60.2 mg/dL Normal [facility] Comment on above: Performed By: #### P T, PTT #### [facility] [address] [place] [address] Dr. Nilton Mccall LIVER PROFILEon 12-12-2021 Albumin [Mass/Vol] 4.0 g/dL Normal 3.4-5.0 [facility] Comment on above: Performed By: #### P T, PTT #### [facility] [address] [place] [address] Dr. Nilton Mccall Albumin/Globulin [Mass ratio] 1.1 {ratio} Normal [facility] Comment on above: Performed By: #### P T, PTT #### [facility] [address] [place] [address] Dr. Nilton Mccall ALP [Catalytic activity/Vol] 70 U/L Normal 46-[address] [facility] Comment on above: Performed By: #### P T, PTT #### [facility] [address] [place] [address] Dr. Nilton Mccall ALT [Catalytic activity/Vol] 30 U/L Normal 14-[address] [facility] Comment on above: Performed By: #### P T, PTT #### [facility] [address] [place] [address] Dr. Nilton Mccall AST [Catalytic activity/Vol] 15 U/L Normal 15-[address] [facility] Comment on above: Performed By: #### P T, PTT #### [facility] [address] [place] [address] Dr. Nilton Mccall BILI, CONJUGATED 0.1 mg/dL Normal 0.0-0.2 [facility] Comment on above: Performed By: #### P T, PTT #### [facility] [address] [place] [address] Dr. Nilton Mccall Bilirubin [Mass/Vol] 0.3 mg/dL Normal 0.2-1.[address] [facility] Comment on above: Performed By: #### P T, PTT #### [facility] [address] [place] [address] Dr. Niltno Mccall Globulin (S) [Mass/Vol] 3.5 g/dL Normal [facility] Comment on above: Performed By: #### P T, PTT #### [facility] [address] [place] [address] Dr. Nilton Mccall Protein [Mass/Vol] 7.5 g/dL Normal 6.4-8.2 [facility] Comment on above: Performed By: #### P T, PTT #### [facility] [address] [place] [address] Dr. Nilton Mccall PROF CHEM 8 (BAS METB)on Anion gap [Moles/Vol] 7.2 mmol/L Normal [facility] Comment on above: Performed By: #### P T, PTT #### [facility] [address] [place] [address] Dr. Nilton Mccall Calcium [Mass/Vol] 9.1 mg/dL Normal 8.5-10.1 [facility] Comment on above: Performed By: #### P T, PTT #### [facility] [address] [place] [address] Dr. Nilton Mccall Chloride [Moles/Vol] 104 mmol/L Normal 98-107 [facility] Comment on above: Performed By: #### P T, PTT #### [facility] [address] [place] [address] Dr. Nilton Mccall CO2 [Moles/Vol] 29.7 mmol/L Normal 21.0-32.0 [facility] Comment on above: Performed By: #### P T, PTT #### [facility] [address] [place] [address] Dr. Nilton Mccall Creatinine [Mass/Vol] 0.97 mg/dL Normal 0.55-1.02 [facility] Comment on above: Performed By: #### P T, PTT #### [facility] [address] [place] [address] Dr. Nilton Mccall EGFR-AF [place] >60 Normal >=60 [facility] Comment on above: Performed By: #### P T, PTT #### [facility] [address] [address] [address] Nilton Mccall EGFR-NON AF [place] >60 Normal >=[address] [facility] Comment on above: Performed By: #### P T, PTT #### [facility] [address] [address] [address] Nilton Mccall Glucose [Mass/Vol] 92 mg/dL Normal 74-106 [facility] Comment on above: Performed By: #### P T, PTT #### [facility] [address] [address] [address] Nilton Mccall Potassium [Moles/Vol] 3.9 mmol/L Normal 3.5-5.[address] [facility] Comment on above: Performed By: #### P T, PTT #### [facility] [address] [place] [address] Dr. Nilton Mccall Sodium [Moles/Vol] 137 mmol/L Normal 136-145 [facility] Comment on above: Performed By: #### P T, PTT #### [facility] [address] [place] [address] Dr. Nilton Mccall Urea nitrogen [Mass/Vol] 14.0 mg/dL Normal 7.0-18.[address] [facility] Comment on above: Performed By: #### P T, PTT #### [facility] [address] [place] [address] Dr. Nilton Mccall Urea nitrogen/Creatinine [Mass ratio] 14.4 mg/mg Normal [facility] Comment on above: Performed By: #### P T, PTT #### [facility] [address] [place] [address] Dr. Nilton Mccall TSHon 12-12-2021 TSH 0.340 uIU/mL Critically low 0.358-3.[address] [facility] Comment on above: Performed By: #### P T, PTT #### [facility] [address] [place] [address] Dr. Nilton Mccall VITAMIN D 25 OHon 12-12-2021 VIT D 25-OH 44.3 ng/mL Normal [facility] Comment on above: Performed By: #### P T, PTT #### [facility] [address] [place] [address] Dr. Nilton Mccall VIT D RANGES SEE BELOW Normal [facility] Comment on above: Result Comment: <20 ng/mL Vit D deficient 20 - <30 ng/mL Vit D insufficient 30 - 100 ng/mL Vit D sufficient >100 ng/mL Potential Toxicity Performed By: #### P T, PTT #### [facility] [address] [place] [address] Dr. Nilton Mccall CULTURE URINEon 11-18-2021 CULTURE URINE Culture Observations : HEAVY GROWTH OF MIXED GENITAL CHANCE. NO POTENTIAL PATHOGENS SEEN. Normal [facility] Comment on above: Performed By: #### P T, PTT #### [facility] [address] [place] [address] Dr. Nilton Mccall CBC AUTO DIFFon 11-14-2021 BASO # 0.0 103/ul Normal 0.0-0.1 [facility] Comment on above: Performed By: #### P T, PTT #### [facility] [address] [place] [address] Dr. Nilton Mccall Basophils/100 WBC (Bld) 0.6 % Normal 0.2-2.0 [facility] Comment on above: Performed By: #### P T, PTT #### [facility] [address] [place] [address] Dr. Nilton Mccall EO # 0.2 103/ul Normal 0.0-0.7 [facility] Comment on above: Performed By: #### P T, PTT #### [facility] [address] [place] [address] Dr. Nilton Mccall Eosinophils/100 WBC (Bld) 2.6 % Normal 0.9-7.0 [facility] Comment on above: Performed By: #### P T, PTT #### [facility] [address] [place] [address] Dr. Nilton Mccall Erythrocyte distribution width (RBC) [Ratio] 11.9 % Normal 11.0-15.0 [facility] Comment on above: Performed By: #### P T, PTT #### [facility] [address] [place] [address] Dr. Nilton Mccall Hematocrit (Bld) [Volume fraction] 39.7 % Normal 36.0-48.[address] [facility] Comment on above: Performed By: #### P T, PTT #### [facility] [address] [place] [address] Dr. Nilton Mccall Hemoglobin (Bld) [Mass/Vol] 13.8 g/dL Normal 12.0-16.[address] [facility] Comment on above: Performed By: #### P T, PTT #### [facility] [address] [place] [address] Dr. Nilton Mccall IG # 0.03 10e3/ul Normal 0.00-0.[address] [facility] Comment on above: Performed By: #### P T, PTT #### [facility] [address] [place] [address] Dr. Nilton Mccall IG % 0.5 % Normal 0.0-0.[address] [facility] Comment on above: Performed By: #### P T, PTT #### [facility] [address] [place] [address] Dr. Nilton Mccall LYMPH # 1.7 103/ul Normal 1.2-3.[address] [facility] Comment on above: Performed By: #### P T, PTT #### [facility] [address] [place] [address] Dr. Nilton Mccall Lymphocytes/100 WBC (Bld) 26.0 % Normal 20.5-60.[address] [facility] Comment on above: Performed By: #### P T, PTT #### [facility] [address] [place] [address] Dr. Nilton Mccall MANUAL DIFF REQ NO Normal [facility] Comment on above: Performed By: #### P T, PTT #### [facility] [address] [place] [address] Dr. Nilton Mccall MCH (RBC) [Entitic mass] 29.6 pg Normal 26.7-34.[address] [facility] Comment on above: Performed By: #### P T, PTT #### [facility] [address] [place] [address] Dr. Nilton Mccall MCHC (RBC) [Mass/Vol] 34.8 g/dL Normal 29.9-35.2 [facility] Comment on above: Performed By: #### P T, PTT #### [facility] [address] [place] [address] Dr. Nilton Mccall MCV (RBC) [Entitic vol] 85.0 fL Normal 81.0-99.0 [facility] Comment on above: Performed By: #### P T, PTT #### [facility] [address] [place] [address] Dr. Nilton Mccall MONO # 0.3 103/ul Normal 0.3-0.8 [facility] Comment on above: Performed By: #### P T, PTT #### [facility] [address] [place] [address] Dr. Nilton Mccall Monocytes/100 WBC (Bld) 5.1 % Normal 1.7-12.[address] [facility] Comment on above: Performed By: #### P T, PTT #### [facility] [address] [place] [address] Dr. Nilton Mccall NEUT # 4.2 103/ul Normal 1.4-6.[address] [facility] Comment on above: Performed By: #### P T, PTT #### [facility] [address] [place] [address] Dr. Nilton Mccall Neutrophils/100 WBC (Bld) 65.2 % Normal 43.0-75.0 [facility] Comment on above: Performed By: #### P T, PTT #### [facility] [address] [place] [address] Dr. Nilton Mccall Platelet mean volume (Bld) [Entitic vol] 9.4 fL Critically low 9.5-13.5 [facility] Comment on above: Performed By: #### P T, PTT #### [facility] [address] [place] [address] Dr. Nilton Mccall PLT 232 103/ul Normal 150-450 [facility] Comment on above: Performed By: #### P T, PTT #### [facility] [address] [address] [address] Nilton Mccall RBC 4.67 106/ul Normal 4.20-5.40 [facility] Comment on above: Performed By: #### P T, PTT #### [facility] [address] [address] [address] Nilton Mccall WBC 6.4 103/ul Normal 4.0-11.[address] [facility] Comment on above: Performed By: #### P T, PTT #### [facility] [id number] Nilton Mccall CT ABD/PELVIS WO CONon [...] BELÉN ANDRADE Date: 2021-11-14 14:24 Normal [facility] ER URINE PROFILEon 2 Bilirubin Ql (U) Negative Normal NEGATIVE [facility] Comment on above: Performed By: #### C BC #### [facility] [address] [address] [address] Nilton Mccall Clarity (U) CLEAR Normal CLEAR [facility] Comment on above: Performed By: #### C BC #### [facility] [address] [address] [address] Nilton Mccall Color (U) LT. YELLOW Normal YELLOW [facility] Comment on above: Performed By: #### C BC #### [facility] [address] [place] [address] Dr. Nilton Mccall ERUAHD A micrscopic examina tion will be performed if indicated. Normal [facility] Comment on above: Performed By: #### C BC #### [facility] [address] [address] [address] Nilton Mccall Glucose Ql (U) Negative Normal NEGATIVE [facility] Comment on above: Performed By: #### C BC #### [facility] [address] [place] [address] Dr. Nilton Mccall Hemoglobin Ql (U) Negative Normal NEGATIVE [facility] Comment on above: Performed By: #### C BC #### [facility] [address] [place] [address] Dr. Nilton Mccall Ketones Ql (U) Negative Normal NEGATIVE [facility] Comment on above: Performed By: #### C BC #### [facility] [address] [place] [address] Dr. Nilton Mccall LEUKOCYTES Negative Normal NEGATIVE [facility] Comment on above: Performed By: #### C BC #### [facility] [address] [place] [address] Dr. Nilton Mccall Nitrite Ql (U) Negative Normal NEGATIVE [facility] Comment on above: Performed By: #### C BC #### [facility] [address] [place] [address] Dr. Nilton Mccall pH (U) 6.0 [pH] Normal 5-9 [facility] Comment on above: Performed By: #### C BC #### [facility] [address] [place] [address] Dr. Nilton Mccall SPEC GRAVITY 1.025 Normal 1.005-<=1. [address] [facility] Comment on above: Performed By: #### C BC #### [facility] [address] [place] [address] Dr. Nilton Mccall UA PROTEIN Negative Normal NEGATIVE/ TRACE [facility] Comment on above: Performed By: #### C BC #### [facility] [address] [place] [address] Dr. Nilton Mccall UR MICRO IND NOT INDICATED Normal [facility] Comment on above: Performed By: #### C BC #### [facility] [address] [place] [address] Dr. Nilton Mccall Urobilinogen Qn (U) 0.2 {Zarina'U}/dL Normal 0.2 - 1. [address] [facility] Comment on above: Performed By: #### C BC #### [facility] [address] [place] [address] Dr. Nilton Mccall MONOon 11-14-2021 Monocytes (Bld) [#/Vol] Negative Normal NEGATIVE [facility] Comment on above: Performed By: #### P T, PTT #### [facility] [address] [place] [address] Dr. Nilton Mccall PROF 14(COMP METB)on 022 Albumin [Mass/Vol] 3.8 g/dL Normal 3.4-5.0 [facility] Comment on above: Performed By: #### C MP #### [facility] [address] [place] [address] Dr. Nilton Mccall Albumin/Globulin [Mass ratio] 1.2 {ratio} Normal [facility] Comment on above: Performed By: #### C MP #### [facility] [address] [place] [address] Dr. Nilton Mccall ALP [Catalytic activity/Vol] 65 U/L Normal 46-[address] [facility] Comment on above: Performed By: #### C MP #### [facility] [address] [place] [address] Dr. Nilton Mccall ALT [Catalytic activity/Vol] 29 U/L Normal 14-[address] [facility] Comment on above: Performed By: #### C MP #### [facility] [address] [place] [address] Dr. Nilton Mccall Anion gap [Moles/Vol] 8.6 mmol/L Normal [facility] Comment on above: Performed By: #### C MP #### [facility] [address] [address] [address] Nilton Mccall AST [Catalytic activity/Vol] 13 U/L Critically low 15-[address] [facility] Comment on above: Performed By: #### C MP #### [facility] [address] [address] [address] Nilton Mccall Bilirubin [Mass/Vol] 0.4 mg/dL Normal 0.2-1.[address] [facility] Comment on above: Performed By: #### C MP #### [facility] [address] [address] [address] Nilton Mccall Calcium [Mass/Vol] 8.9 mg/dL Normal 8.5-10.1 [facility] Comment on above: Performed By: #### C MP #### [facility] [address] [address] [address] Nilton Mccall Chloride [Moles/Vol] 106 mmol/L Normal 98-[address] [facility] Comment on above: Performed By: #### C MP #### [facility] [address] [address] [address] Nilton Mccall CO2 [Moles/Vol] 26.2 mmol/L Normal 21.0-32.0 [facility] Comment on above: Performed By: #### C MP #### [facility] [address] [address] [address] Nilton Mccall Creatinine [Mass/Vol] 1.12 mg/dL Critically high 0.55-1.[address] [facility] Comment on above: Performed By: #### C MP #### [facility] [address] [address] [address] Nilton Mccall EGFR-AF [place]LANDER >60 Normal >=60 [facility] Comment on above: Performed By: #### C MP #### [facility] [address] [address] [address] Nilton Mccall EGFR-NON AF [place]ER 55 mL/min/1.73m2 Critically low >=[address] [facility] Comment on above: Performed By: #### C MP #### [facility] [address] [address] [address] Nilton Mccall Globulin (S) [Mass/Vol] 3.3 g/dL Normal [facility] Comment on above: Performed By: #### C MP #### [facility] [address] [address] [address] Nilton Mccall Glucose [Mass/Vol] 88 mg/dL Normal 74-106 [facility] Comment on above: Performed By: #### C MP #### [facility] [address] [address] [address] Nilton Mccall Potassium [Moles/Vol] 3.8 mmol/L Normal 3.5-5.[address] [facility] Comment on above: Performed By: #### C MP #### [facility] [address] [address] [address] Nilton Mccall Protein [Mass/Vol] 7.1 g/dL Normal 6.4-8.2 [facility] Comment on above: Performed By: #### C MP #### [facility] [address] [address] [address] Nilton Mccall Sodium [Moles/Vol] 137 mmol/L Normal 136-145 [facility] Comment on above: Performed By: #### C MP #### [facility] [address] [address] [address] Nilton Mccall Urea nitrogen [Mass/Vol] 14.0 mg/dL Normal 7.0-18.[address] [facility] Comment on above: Performed By: #### C MP #### [facility] [address] [address] [address] Nilton Mccall Urea nitrogen/Creatinine [Mass ratio] 12.5 mg/mg Normal [facility] Comment on above: Performed By: #### C MP #### [facility] [address] [address] [address] Nilton Mccall MG MAMM DIAGNOSTIC 3D LARS CA Don 10-19-2021 MG MAMM DIAGNOSTIC 3D LARS CAD Patient: LEANA TRAN. Exam Date: 10/19/2021 : 1985 Gender:F Ordering : DR CAS DOWELL . Admission #: [id number] Family : Order #: [id number] CLICK HERE TO VIEW EXAM RADIOLOGY REPORT [...] cervical cancer at age 48. LOCATION: [facility] BREAST COMPOSITION: Scattered areas fibroglandular density. [...] M.D. on 10/19/2021 at 11:10 Normal [facility] US BREAST LARS LIMITEDon - US BREAST LARS LIMITED Patient: LEANA TRAN. Exam Date: 10/19/2021 : 1985 Gender:F Ordering : DR CAS DOWELL . Admission #: [id number] Family : Order #: [id number] CLICK HERE TO VIEW EXAM RADIOLOGY REPORT [...] cervical cancer at age 48. LOCATION: [facility] BREAST COMPOSITION: Scattered areas fibroglandular density. [...] M.D. on 10/19/2021 at 11:10 Normal [facility] XR CHEST 2V FRONTAL/LATon [facility] LUNG DIFFUSION CAPACITY (FARHAD O)on 09-27-2021 DLCO (ml/min/mmHg) 22.00 ml/min/mmHg [facility] DLCO/VA (ml/min/mmHg/L) 4.60 ml/min/mmHg/L [facility] DLCOcor (ml/min/mmHg) 21.26 ml/min/mmHg [facility] ERV BOX (L) 0.28 L [facility] GSD47-83% POST (L/S) 2.46 L/S [facility] CHG64-67% PRE (L/S) 2.13 L/S [facility] land [facility] FEV1 PRE (L) 2.83 L [facility] FEV1/FVC POST (%) 74 % [facility] nd [facility] FEV1/FVC PRE (%) 73 % [facility] d [facility] FEV1_POST (L) 2.92 L [facility] FRC Box (L) 1.66 L [facility] FVC POST (L) 3.92 L [facility] FVC PRE (L) 3.89 L [facility] IC BOX (L) 2.36 L [facility] PEF POST (L/S) 5.48 L/S [facility] PEF PRE (L/S) 5.56 L/S [facility] RV Box (L) 1.39 L [facility] RV/TLC Box (%) 32 % [facility] TLC Box (L) 4.36 L [facility] VA (L) 4.78 L [facility] VC (L) BOX 3.51 L [facility] CTA CHEST WO W CONon 022 [...] by: AYAKA STEARNS Date: 2021-09-22 22:[address] [facility] PROF CHEM 8 (BAS METB)on Anion gap [Moles/Vol] 5.4 mmol/L Normal [facility] Comment on above: Performed By: #### B MP #### [facility] [address] [address] [address] Nilton Mccall Calcium [Mass/Vol] 9.2 mg/dL Normal 8.5-10.1 [facility] Comment on above: Performed By: #### B MP #### [facility] [address] [place], [place] [address] Dr. Nilton Mccall Chloride [Moles/Vol] 102 mmol/L Normal 98-[address] [facility] Comment on above: Performed By: #### B MP #### [facility] [address] [address] [address] Nilton Mccall CO2 [Moles/Vol] 26.1 mmol/L Normal 21.0-32.0 [facility] Comment on above: Performed By: #### B MP #### [facility] [address] [address] [address] Nilton Mccall Creatinine [Mass/Vol] 0.99 mg/dL Normal 0.55-1.[address] [facility] Comment on above: Performed By: #### B MP #### [facility] [address] [address] [address] Nilton Mccall EGFR-AF [place]ER >60 Normal >=60 [facility] Comment on above: Performed By: #### B MP #### [facility] [address] [address] [address] Nilton Mccall EGFR-NON AF [place] >60 Normal >=[address] [facility] Comment on above: Performed By: #### B MP #### [facility] [address] [address] [address] Nilton Mccall Glucose [Mass/Vol] 113 mg/dL Critically high 74-106 [facility] Comment on above: Performed By: #### B MP #### [facility] [address] [address] [address] Nilton Mccall Potassium [Moles/Vol] 3.5 mmol/L Normal 3.5-5.[address] [facility] Comment on above: Performed By: #### B MP #### [facility] [address] [address] [address] Nilton Mccall Sodium [Moles/Vol] 130 mmol/L Critically low 136-145 [facility] Comment on above: Performed By: #### B MP #### [facility] [address] [place] [address] Dr. Nilton Mccall Urea nitrogen [Mass/Vol] 13.0 mg/dL Normal 7.0-18.[address] [facility] Comment on above: Performed By: #### B MP #### [facility] [address] [address] [address] Nilton Mccall Urea nitrogen/Creatinine [Mass ratio] 13.1 mg/mg Normal [facility] Comment on above: Performed By: #### B MP #### [facility] [address] [address] [address] Nilton Mccall GLYCOHEMOGLOBIN A1Con 2021 ADA RECOMMENDATION SEE BELOW Normal [facility] Comment on above: Result Comment: ADA RECOMMENDED LIMIT 4.0 - 6.0 ADA THERAPEUTIC TARGET < 7.0 ACTION SUGGESTED > 7.0 Performed By: #### C BC #### [facility] [address] [address] [address] Nilton Mccall Glucose [Mass/Vol] 140 mg/dL Normal [facility] Comment on above: Performed By: #### C BC #### [facility] [address] [address] [address] Nilton Mccall HbA1c (Bld) [Mass fraction] 6.5 % Critically high 4.5-6.[address] [facility] Comment on above: Performed By: #### C BC #### [facility] [address] [address] [address] Nilton Mccall US Pelvis limitedon 08-20-19 IMPRESSION: No inguinal or femoral hernia identified. Vacuum Caster: [facility] Transcribe Date/Time: Aug 19 2021 1:20P Dictated by : LUANNE BRYANT MD This examination was interpreted and the report reviewed and electronically signed by: LUANNE BRYANT MD on Aug 19 2021 2:51PM EST ZZZ_DO_NOT_US E_DIVISION OF RADIOLOGY * * *Final Report* * * DATE OF EXAM: Aug 19 2021 1:14PM [facility] 1043 - US PELVIS LTD / [...] appearance. ZZZ_DO_NOT_US E_DIVISION OF RADIOLOGY Provider, Elias hayden Cromwell - 08/19/2021 * * *Final Report* * * DATE OF EXAM: Aug 19 2021 1:14PM [facility] 1043 - US PELVIS LTD / [...] IMPRESSION: No inguinal or femoral hernia identified. Vacuum Caster: ROBER Transcribe Date/Time: Aug 19 2021 1:20P Dictated by : LUANNE BRYANT MD This examination was interpreted and the report reviewed and electronically signed by: LUANNE BRYANT MD on Aug 19 2021 2:51PM EST [facility] Radiology Study observation (narrative) [facility] US Pelvis limitedOrdered By: [facility] Provider on 08-19-2021 [facility] ECHOon 08-17-2021 Echocardiography Echocardiography Rep ort: Transthoracic Echo [facility] Date of service: 08/17/2021 [...] * * Final * * * CC [employer] : [id number] Normal [facility] LVEF ECHOon 08-17-2021 LV Ejection Fraction 58 % [facility] PAP ACOG PANEL 2: 30 to 65on 08-05-2021 . . Normal [facility] Comment on above: Result Comment: Perf ormed at: WB Performed By: #### P T, PTT #### [facility] [address] [address] [address] Nilton Mccall Age Gdln ACOG Testing 30-[address] [facility] Comment on above: Performed By: #### P T, PTT #### [facility] [address] [place], [place] [address] Dr. Nilton Mccall DIAGNOSIS: Comment Normal [facility] Comment on above: Result Comment: NEGA TIVE FOR INTRAEPITHELIAL LESION OR MALIGNANCY. Performed at: WB Performed By: #### P T, PTT #### [facility] [address] [address] [address] Nilton Mccall HPV Aptima Negative Normal Negative [facility] Comment on above: Result Comment: This nucleic acid amplification test detects fourteen high-risk HPV types (16,18,31,33,35,39,45,51,52,56,58,59,66,68) without differentiation. Performed at: =G Performed By: #### P T, PTT #### [facility] [address] [address] [address] Nilton Mccall Methodology: Comment Normal [facility] Comment on above: Result Comment: This liquid based ThinPrep(R) pap test was screened with the use of an image guided system. Performed at: WB Performed By: #### P T, PTT #### [facility] [address] [address] [address] Nilton Mccall Note: Comment Normal [facility] [...] Performed By: #### P T, PTT #### [facility] [address] [address] [address] Nilton Mccall Performed by: Comment Normal [facility] Comment on above: Result Comment: Jay Ellison, Packaging Sales Representative (ASCP) Performed at: WB Performed By: #### P T, PTT #### [facility] [address] [address] [address] Nilton Mccall Specimen adequacy: Comment Normal [facility] Comment on above: Result Comment: Sati sfactory for evaluation. No endocervical component is identified. Performed at: WB Performed By: #### P T, PTT #### [facility] [address] [address] [address] Nilton Mccall C3 Romeo-edmond 07-25-2021 Complement C3 [Mass/Vol] 165 mg/dL Normal 86-166 [facility] Comment on above: Order Comment: Speci men Type: BLOOD SPECIMEN Ordering Facility: [facility] Address: [address] [place] [address] [place], [place] [id number] Performed By: #### 4 485-9, 4498-2 #### [facility] CLIA [id number] [address] [place] [address] [place] C4 SerPl-mCncon 07-25-2021 Complement C4 [Mass/Vol] 32 mg/dL Normal 13-46 [facility] Comment on above: Order Comment: Speci men Type: BLOOD SPECIMEN Ordering Facility: [facility] Address: [address] [place] [address] Performed By: #### 4 485-9, 4498-2 #### [facility] CLIA [id number] [address] [place] [address] OF [place] TRYPTASE BLOODon 07-25-2021 Tryptase [Mass/Vol] 3.4 ug/L Normal <8.4 [facility] Comment on above: Order Comment: Speci men Type: BLOOD SPECIMEN Ordering Facility: [facility] Address: [address] [place] [address] Performed By: #### T RYPT #### [facility] CLIA [id number] [address] [place] [address] [place] ACTH Don 07-18-2021 Corticotropin (P) [Mass/Vol] 15.5 pg/mL 7.2 - 63.3 pg/mL [facility] CORTISOL BLDon 07-18-2021 Cortisol [Mass/Vol] 9.9 ug/dL 4.8 - 19 .5 ug/dL [facility] Alpha tocopherol [Mass/Vol]o n 07-07-2021 Beta+gamma tocopherol [Mass/Vol] 3.0 mg/L 0.3 - 3.2 mg/L [facility] VITAMIN E/TOCOPHEROLon 07-07 Alpha tocopherol [Mass/Vol] 13.1 mg/L 6.0 - 23.0 mg/L [facility] ACTH BLDon 07-02-2021 Corticotropin (P) [Mass/Vol] 15.1 pg/mL 7.2 - 63.3 pg/mL [facility] CERULOPLASMIN BLDon 07-02-19 Ceruloplasmin [Mass/Vol] 23 mg/dL 16 - 45 mg/dL [facility] CK CREATINE KINASEon 022 CK [Catalytic activity/Vol] 51 U/L 42 - 196 U/L [facility] CORTISOL [facility] 07-01-2021 Cortisol [Mass/Vol] 7.4 ug/dL 4.8 - 19 .5 ug/dL [facility] DHEA-S [facility] 07-01-2021 DHEA-S [Mass/Vol] 35.9 ug/dL Low 60.9 - 337.0 ug/dL [facility] FERRITIN [facility] 07-01-2021 Ferritin [Mass/Vol] 98.2 ng/mL 14.7 - 205.1 ng/mL [facility] BNP 06-24-2021 Natriuretic peptide B (Bld) [Mass/Vol] 15.0 pg/mL Normal <=450.[address] [facility] Comment on above: Performed By: #### C BC #### [facility] [address] [place] [address] Dr. Nilton Mccall CARDIAC CHAYO 3-6on 2 CK [Catalytic activity/Vol] 60 U/L Normal 26-[address] [facility] Comment on above: Performed By: #### C MREP #### [facility] [address] [place] [address] Dr. Nilton Mccall CK.MB [Mass/Vol] 0.33 ng/mL Normal <=3.60 [facility] Comment on above: Performed By: #### C MREP #### [facility] [address] [place] [address] Dr. Nilton Mccall HSTROP 4.7 pg/mL Normal 4.0-51.[address] [facility] Comment on above: Result Comment: CUT- OFF POINTS HAVE BEEN ESTABLISHED BASED ON THE FOURTH UNIVERSAL DEFINITIONS OF MYOCARDIAL INFARCTION. THE UPPER REFERENCE LIMIT (URL) OF TROPONIN, DEFINED THE 99TH PERCENTILE OF cTnI DISTRIBUTION IN A REFERENCE POPULATION, HAS BEEN CONFIRMED THE DECISION THRESHOLD FOR NC DIAGNOSIS. Performed By: #### C MREP #### [facility] [address] [place] [address] Dr. Nilton Mccall CARDIAC CHAYO ADMITon 022 CK [Catalytic activity/Vol] 71 U/L Normal 26-[address] [facility] Comment on above: Performed By: #### C BC #### [facility] [address] [place] [address] Dr. Nilton Mccall CK.MB [Mass/Vol] 0.50 ng/mL Normal <=3.60 [facility] Comment on above: Performed By: #### C BC #### [facility] [address] [place] [address] Dr. Nilton Mccall HSTROP 3.8 pg/mL Critically low 4.0-51.[address] [facility] Comment on above: Result Comment: CUT- OFF POINTS HAVE BEEN ESTABLISHED BASED ON THE FOURTH UNIVERSAL DEFINITIONS OF MYOCARDIAL INFARCTION. THE UPPER REFERENCE LIMIT (URL) OF TROPONIN, DEFINED THE 99TH PERCENTILE OF cTnI DISTRIBUTION IN A REFERENCE POPULATION, HAS BEEN CONFIRMED THE DECISION THRESHOLD FOR NC DIAGNOSIS. Performed By: #### C BC #### [facility] [address] [place] [address] Dr. Nilton Mccall PILI 25 ng/mL Normal 9-[address] [facility] Comment on above: Performed By: #### C BC #### [facility] [address] [place] [address] Dr. Nilton Mccall CBC AUTO DIFFon 06-24-2021 BASO # 0.1 103/ul Normal 0.0-0.[address] [facility] Comment on above: Performed By: #### C MP #### [facility] [address] [place] [address] Dr. Nilton Mccall Basophils/100 WBC (Bld) 0.6 % Normal 0.2-2.[address] [facility] Comment on above: Performed By: #### C MP #### [facility] [address] [place] [address] Dr. Nilton Mccall EO # 0.2 103/ul Normal 0.0-0.[address] [facility] Comment on above: Performed By: #### C MP #### [facility] [address] [place] [address] Dr. Nilton Mccall Eosinophils/100 WBC (Bld) 2.2 % Normal 0.9-7.[address] [facility] Comment on above: Performed By: #### C MP #### [facility] [address] [place] [address] Dr. Nilton Mccall Erythrocyte distribution width (RBC) [Ratio] 11.8 % Normal 11.0-15.[address] [facility] Comment on above: Performed By: #### C MP #### [facility] [address] [place] [address] Dr. Nilton Mccall Hematocrit (Bld) [Volume fraction] 43.4 % Normal 36.0-48.[address] [facility] [address] [facility] Comment on above: Performed By: #### C MP #### [facility] [address] [place] [address] Dr. Nilton Mccall Hemoglobin (Bld) [Mass/Vol] 14.8 g/dL Normal 12.0-16.[address] [facility] Comment on above: Performed By: #### C MP #### [facility] [address] [place] [address] Dr. Nilton Mccall IG # 0.04 10e3/ul Critically high 0.00-0.03 [facility] Comment on above: Performed By: #### C MP #### [facility] [address] [place] [address] Dr. Nilton Mccall IG % 0.4 % Normal 0.0-0.[address] [facility] Comment on above: Performed By: #### C MP #### [facility] [address] [place] [address] Dr. Nilton Mccall LYMPH # 2.0 103/ul Normal 1.2-3.[address] [facility] Comment on above: Performed By: #### C MP #### [facility] [address] [place] [address] Dr. Nilton Mccall Lymphocytes/100 WBC (Bld) 21.5 % Normal 20.5-60.[address] [facility] Comment on above: Performed By: #### C MP #### [facility] [address] [place] [address] Dr. Nilton Mccall MANUAL DIFF REQ NO Normal [facility] Comment on above: Performed By: #### C MP #### [facility] [address] [address] [address] Nilton Mccall MCH (RBC) [Entitic mass] 29.4 pg Normal 26.7-34.[address] [facility] Comment on above: Performed By: #### C MP #### [facility] [address] [place] [address] Dr. Nilton Mccall MCHC (RBC) [Mass/Vol] 34.1 g/dL Normal 29.9-35.2 [facility] Comment on above: Performed By: #### C MP #### [facility] [address] [place] [address] Dr. Nilton Mccall MCV (RBC) [Entitic vol] 86.1 fL Normal 81.0-99.[address] [facility] Comment on above: Performed By: #### C MP #### [facility] [address] [place] [address] Dr. Nilton Mccall MONO # 0.5 103/ul Normal 0.3-0.8 [facility] Comment on above: Performed By: #### C MP #### [facility] [address] [place] [address] Dr. Nilton Mccall Monocytes/100 WBC (Bld) 5.4 % Normal 1.7-12.[address] [facility] Comment on above: Performed By: #### C MP #### [facility] [address] [place] [address] Dr. Nilton Mccall NEUT # 6.3 103/ul Normal 1.4-6.5 [facility] Comment on above: Performed By: #### C MP #### [facility] [address] [place] [address] Dr. Nilton Mccall Neutrophils/100 WBC (Bld) 69.9 % Normal 43.0-75.0 [facility] Comment on above: Performed By: #### C MP #### [facility] [address] [place] [address] Dr. Nilton Mccall Platelet mean volume (Bld) [Entitic vol] 9.6 fL Normal 9.5-13.5 [facility] Comment on above: Performed By: #### C MP #### [facility] [address] [place], [place] [address] Dr. Nilton Mccall PLT 290 103/ul Normal 150-450 [facility] Comment on above: Performed By: #### C MP #### [facility] [address] [place], [place] [address] Dr. Nilton Mccall RBC 5.04 106/ul Normal 4.20-5.40 [facility] Comment on above: Performed By: #### C MP #### [facility] [address] [place], [place] [address] Dr. Nilton Mccall WBC 9.1 103/ul Normal 4.0-11.0 [facility] Comment on above: Performed By: #### C MP #### [facility] [address] [place], [place] [address] STROKE HEAD WOon [...] MAREK EPSTEIN Date: 2021-06-24 20:56 Normal [facility] CT STROKE HEAD WO NONCONTRAST CT [...] MAREK EPSTEIN Date: 2021-06-24 19:15 Normal [facility] Covid-19 PCR (CVDTB)on 06-06 SARS-CoV-2 (COVID-19) RNA CHRISTI+probe Ql (Unsp spec) Not detected Normal NOT DETECTED [facility] Comment on above: Result Comment: [...] for this test is supported by the [employer] of Health and Human Service's declaration that [...] Performed By: #### P T, PTT #### [facility] [address] [place] [address] Dr. Nilton Mccall ER URINE PROFILEon 2 Bilirubin Ql (U) Negative Normal NEGATIVE The [facility] Comment on above: Performed By: #### E RUR, PREGU #### [facility] [address] [place] [address] Dr. Nilton Mccall Clarity (U) CLEAR Normal CLEAR [facility] Comment on above: Performed By: #### E RUR, PREGU #### [facility] [address] [place] [address] Dr. Nilton Mccall Color (U) YELLOW Normal YELLOW [facility] Comment on above: Performed By: #### E RUR, PREGU #### [facility] [address] [place] [address] Dr. Nilton Mccall ERUAHD A micrscopic examina tion will be performed if indicated. Normal [facility] Comment on above: Performed By: #### E RUR, PREGU #### [facility] [address] [place] [address] Dr. Nilton Mccall Glucose Ql (U) Negative Normal NEGATIVE [facility] Comment on above: Performed By: #### E RUR, PREGU #### [facility] [address] [place] [address] Dr. Nilton Mccall Hemoglobin Ql (U) Negative Normal NEGATIVE [facility] Comment on above: Performed By: #### E RUR, PREGU #### [facility] [address] [place] [address] Dr. Nilton Mccall Ketones Ql (U) Negative Normal NEGATIVE [facility] Comment on above: Performed By: #### E RUR, PREGU #### [facility] [address] [place] [address] Dr. Nilton Mccall LEUKOCYTES Negative Normal NEGATIVE [facility] Comment on above: Performed By: #### E RUR, PREGU #### [facility] [address] [place] [address] Dr. Nilton Mccall Nitrite Ql (U) Negative Normal NEGATIVE [facility] Comment on above: Performed By: #### E RUR, PREGU #### [facility] [address] [place] [address] Dr. Nilton Mccall pH (U) 6.0 [pH] Normal 5-[address] [facility] Comment on above: Performed By: #### E RUR, PREGU #### [facility] [address] [place] [address] Dr. Nilton Mccall SPEC GRAVITY 1.015 Normal 1.005-<=1. [address] [facility] Comment on above: Performed By: #### E RUR, PREGU #### [facility] [address] [place] [address] Dr. Nilton Mccall UA PROTEIN Negative Normal NEGATIVE/ TRACE [facility] Comment on above: Performed By: #### E RUR, PREGU #### [facility] [address] [place] [address] Dr. Nilton Mccall UR MICRO IND NOT INDICATED Normal [facility] Comment on above: Performed By: #### E RUR, PREGU #### [facility] [address] [place] [address] Dr. Nilton Mccall Urobilinogen Qn (U) 0.2 {Zarina'U}/dL Normal 0.2 - 1. [address] [facility] Comment on above: Performed By: #### E RUR, PREGU #### [facility] [address] [place] [address] Dr. Nilton Mccall LACTATE/LACTIC ACIDon 2021 Lactate [Moles/Vol] 1.0 mmol/L Normal 0.4-1.9 [facility] Comment on above: Performed By: #### P T, PTT #### [facility] [address] [place] [address] Dr. Nilton Mccall LIPASEon 06-24-2021 Lipase [Catalytic activity/Vol] 103.0 U/L Normal 73.0-393.[address] [facility] Comment on above: Performed By: #### C BC #### [facility] [address] [place] [address] Dr. Nilton Mccall PH VENOUS BLOODon 06-24-2021 PCO2 VENOUS 29.4 mmHg Critically low 40.0-52.0 [facility] Comment on above: Performed By: #### P T, PTT #### [facility] [address] [place] [address] Dr. Nilton Mccall pH VENOUS 7.478 Critically high 7.330-7.[address] [facility] Comment on above: Performed By: #### P T, PTT #### [facility] [address] [place] [address] Dr. Nilton Mccall POINT OF CARE GLUCOSEon 06-06 Glucose [Mass/Vol] 107 mg/dL Critically high 74-[address] [facility] Comment on above: Performed By: #### C MP #### [facility] [address] [place] [address] Dr. Nilton Mccall URon 06-24-2021 , QUAL Negative Normal NEGATIVE [facility] Comment on above: Performed By: #### E RUR, PREGU #### [facility] [address] [place] [address] Dr. Nilton Mccall PROTIMEon 06-24-2021 INR Coag (PPP) [Relative time] 0.99 {INR} Normal [facility] Comment on above: Performed By: #### P T, PTT #### [facility] [address] [place] [address] Dr. Nilton Mccall INR GUIDELINES SEE BELOW Normal [facility] Comment on above: Result Comment: JOSS RED INR: 2.0 - 3.0 CONDITIONS NOT LISTED BELOW 2.5 - 3.5 FOR PROSTHETIC HEART VALVE REPLACEMENT 2.5 - 3.5 RECURRENT THROMBOSIS Performed By: #### P T, PTT #### [facility] [address] [place] [address] Dr. Nilton Mccall PT Coag (PPP) [Time] 10.7 s Normal 9.0-11.[address] [facility] Comment on above: Performed By: #### P T, PTT #### [facility] [address] [place] [address] Dr. Nilton Mccall PTTon 06-24-2021 aPTT Coag (Bld) [Time] 32.5 s Normal 22.3-36.[address] [facility] Comment on above: Performed By: #### P T, PTT #### [facility] [address] [place] [address] Dr. Nilton Mccall TSHon 06-24-2021 TSH 0.655 uIU/mL Normal 0.358-3.[address] [facility] Comment on above: Performed By: #### C BC #### [facility] [address] [place] [address] Dr. Nilton Mccall TSH RANGE SEE BELOW Normal [facility] Comment on above: Result Comment: <0.3 4 UIU/ml HYPERTHYROID 0.34-5.60 UIU/ml EUTHYROID >5.60 UIU/ml HYPOTHYROID Performed By: #### C BC #### [facility] [address] [place] [address] Dr. Nilton Mccall XR CHEST 1 Von [...] BELÉN DC Date: 2021-06-24 19:14 Normal [facility] Basic Metabolic Panelon 06-05 Anion gap [Moles/Vol] 11 mmol/L 9 - 17 mmol/L [facility] Calcium [Mass/Vol] 9.3 mg/dL 8.6 - 10. 4 mg/dL [facility] [employer] Chloride [Moles/Vol] 102 mmol/L 98 - 10 7 mmol/L [facility] [employer] CO2 [Moles/Vol] 23 mmol/L 20 - 31 mmol/L [facility] Creatinine [Mass/Vol] 0.78 mg/dL 0.50 - 0.90 mg/dL [facility] GFR >60 >60 mL/min [facility] GFR Non- >60 >60 mL/min [facility] Glucose [Mass/Vol] 160 mg/dL High 70 - 99 mg/dL [facility] Interpretation and review of laboratory results Abnormal [facility] Potassium [Moles/Vol] 3.7 mmol/L 3.7 - 5.3 mmol/L [facility] Sodium [Moles/Vol] 136 mmol/L 135 - 144 mmol/L [facility] Urea nitrogen (BldV) [Mass/Vol] 12 mg/dL 6 - 20 mg/dL [facility] Urea nitrogen/Creatinine (Bld) [Mass ratio] 15 [facility] CBC with Auto Differentialon 06-21-2021 Absolute Eos # 0.21 [facility] Heal th Absolute Immature Granulocyte 0.03 [facility] [employer] Absolute Lymph # 2.43 [facility] He alth Absolute [place] # 0.43 [facility] Hea lth Basophils (Bld) [#/Vol] 0.05 10*3/uL [facility] Basophils/100 WBC (Bld) 1 % 0 - 2 % [facility] Eosinophils/100 WBC (Bld) 3 % 1 - 4 % [facility] Hematocrit (Bld) [Volume fraction] 41.8 % 36.3 - 47.1 % [facility] Hemoglobin.gastroint estinal spec 1 Ql (Stl) 14.0 g/dL 11.9 - 15.1 g/dL [facility] Immature granulocytes/100 WBC (Bld) 0 % 0 [facility] Interpretation and review of laboratory results Abnormal [facility] Lymphocytes/100 WBC (Bld) 29 % 24 - 43 % [facility] MCH (RBC) [Entitic mass] 29.2 pg 25.2 - 33.5 pg [facility] MCHC (RBC) [Mass/Vol] 33.5 g/dL 28.4 - 34.8 g/dL [facility] MCV (RBC) [Entitic vol] 87.1 fL 82.6 - 102.9 fL [facility] Monocytes/100 WBC (Bld) 5 % 3 - 12 % [facility] NRBC Automated 0.0 0.0 per 100 WBC [facility] Platelet distribution width (Bld) [Ratio] 11.5 % Low 11.8 - 14.4 % [facility] Platelet mean volume (Bld) [Entitic vol] 9.6 fL 8.1 - 13.5 fL [facility] Platelets (Bld) [#/Vol] 264 10*3/uL [facility] RBC (Bld) [#/Vol] 4.80 10*6/uL 3.95 - 5.11 m/uL [facility] Segmented neutrophils/100 WBC (Bld) 62 % 36 - 65 % [facility] Segs Absolute 5.[address] [facility] [address] W[facility] (Bld) [#/Vol] 8.3 10*3/uL [facility] Laboratory - Chemistry and C hemistry - challengeon 06-21-2021 GFR/1.73 sq M.predicted MDRD (S/P/Bld) [Vol rate/Area] [facility] Comment on above: Average GFR for 30-3 9 years old: 107 mL/min/1.73sq m Chronic Kidney Disease: <60 mL/min/1.73sq m Kidney failure: <15 mL/min/1.73sq m eGFR calculated using average adult body mass. Additional eGFR calculator available at: http://www.[employer].VisionGate/multiple_crcl_2011.htm Stage 1: Some kidney damage normal GFR Stage 2: Mild kidney damage GFR 60-89 Stage 3: Moderate kidney damage GFR 30-59 Stage 4: Severe kidney damage GFR 15-29 Stage 5: Severe kidney damage GFR <15 ESRD - chronic treatment by dialysis or transplant Magnesiumon 06-21-2021 Magnesium [Mass/Vol] 1.8 mg/dL 1.6 - 2 .6 mg/dL [facility] TSHon 06-21-2021 TSH Qn 1.33 m[IU]/L [facility] Troponinon 06-21-2021 Troponin, High Sensitivity <6 0 - 14 ng/L [facility] Comment on above: High Sensitivity Troponin values cannot be compared with other Troponin methodologies. Patients with high levels of Biotin oral intake (i.e >5mg/day) may have falsely decreased Troponin levels. Samples collected within 8 hours of biotin intake may require additional information for diagnosis. [facility] XR CHEST PORTABLEon 06-22-19 No acute cardiopulmo [...] bone finding. IMPRESSION: No acute cardiopulmonary disease. [facility] Work Phone: Radiology Study observation (narrative) [facility] Work Phone: XR CHEST PORTABLEOrdered By: Armando Stern on 06-21-2021 [facility] Work Phone: [facility]ALTH[facility] 06-16-2021 [facility] HNO ID: [id number] Author: RT Geovanna(R) Service: ? Author Type: [...] DATE: June 16, 2021 TIME: 11:05 AM [facility] MRI BRAIN WO/W IVCONon 06-16 MRI BRAIN WO/W IVCON * * *Final Report* * * DATE OF EXAM: Jun 16 2021 11:27AM [facility] [id number] - MRI BRAIN WO/W [...] of the brain with and without contrast. Vacuum Caster: ROBER Transcribe Date/Time: Jun 16 2021 11:31A Dictated by : ANNA BOLAND MD This examination was interpreted and the report reviewed and electronically signed by: ANNA BOLAND MD on Jun 16 2021 11:53AM EST [id number] Normal [facility] ACTH [facility] 06-14-2021 Corticotropin (P) [Mass/Vol] 11.6 pg/mL 7.2 - 63.3 pg/mL [facility] Basic Metabolic Panel w/ Ref douglas to [facility] 05-20-2021 Anion gap [Moles/Vol] 11 mmol/L 9 - 17 mmol/L [facility] Calcium [Mass/Vol] 9.1 mg/dL 8.6 - 10. 4 mg/dL [facility] Chloride [Moles/Vol] 103 mmol/L 98 - 10 7 mmol/L [facility] CO2 [Moles/Vol] 23 mmol/L 20 - 31 mmol/L [facility] Creatinine [Mass/Vol] 0.74 mg/dL 0.50 - 0.90 mg/dL [facility] GFR >60 >60 mL/min [employer] GFR Non- >60 >60 mL/min [facility] Glucose [Mass/Vol] 101 mg/dL High 70 - 99 mg/dL [facility] Interpretation and review of laboratory results Abnormal [facility] Potassium [Moles/Vol] 3.7 mmol/L 3.7 - 5.3 mmol/L [facility] Sodium [Moles/Vol] 137 mmol/L 135 - 144 mmol/L [facility] Urea nitrogen (BldV) [Mass/Vol] 9 mg/dL 6 - 20 mg/dL [facility] Urea nitrogen/Creatinine (Bld) [Mass ratio] 12 [facility] Brain Natriuretic Peptideon 05-20-2021 Natriuretic peptide B (Bld) [Mass/Vol] 173 pg/mL <300 [facility] Comment on above: An age-independent cutoff point of 300 pg/ml has a 98% negative predictive value excluding acute heart failure. C-Reactive Proteinon 022 CRP [Mass/Vol] mg/L 0.0 - 5.0 mg/L [facility] CBC with Auto Differentialon 05-20-2021 Absolute Eos # 0.[address] [facility] th Absolute Immature Granulocyte 0.03 [facility] Absolute Lymph # 1.75 [facility] alth Absolute [place] # 0.29 [facility] Basophils (Bld) [#/Vol] 0.03 10*3/uL [facility] Basophils/100 WBC (Bld) 0 % 0 - 2 % [facility] Eosinophils/100 WBC (Bld) 3 % 1 - 4 % [facility] Hematocrit (Bld) [Volume fraction] 43.8 % 36.3 - 47.1 % [facility] Hemoglobin.gastroint estinal spec 1 Ql (Stl) 14.6 g/dL 11.9 - 15.1 g/dL [facility] Immature granulocytes/100 WBC (Bld) 0 % 0 [facility] Interpretation and review of laboratory results Abnormal [facility] Lymphocytes/100 WBC (Bld) 25 % 24 - 43 % [facility] MCH (RBC) [Entitic mass] 29.0 pg 25.2 - 33.5 pg [facility] MCHC (RBC) [Mass/Vol] 33.3 g/dL 28.4 - 34.8 g/dL [facility] MCV (RBC) [Entitic vol] 86.9 fL 82.6 - 102.9 fL [facility] Monocytes/100 WBC (Bld) 4 % 3 - 12 % [facility] NRBC Automated 0.0 0.0 per 100 WBC [facility] Platelet distribution width (Bld) [Ratio] 11.5 % Low 11.8 - 14.4 % [facility] Platelet mean volume (Bld) [Entitic vol] 9.5 fL 8.1 - 13.5 fL [facility] [employer] Platelets (Bld) [#/Vol] 242 10*3/uL [facility] [employer] RBC (Bld) [#/Vol] 5.04 10*6/uL 3.95 - 5.11 m/uL [facility] [employer] Segmented neutrophils/100 WBC (Bld) 68 % High 36 - 65 % [facility] [employer] Segs Absolute 4.67 [facility] Healt h WBC (Bld) [#/Vol] 7.0 10*3/uL [facility] CT ABDOMEN PELVIS WO CONTRAS T Additional [...] without evidence of incarceration. 3. Hepatic steatosis [email or web address] Phone: Radiology Study observation (narrative) [email or web address] Phone: CT ABDOMEN PELVIS WO CONTRAS T Additional Contrast? NoneOrdered By: Jesus Unger on 05-20-2021 [email or web address] Phone: D-Dimer, Quantitativeon 05-06 D-Dimer, Quant 0.34 [facility] Comment on above: When combined with [...] more prevalent in patients with distal DVT. [facility] Drug screen multi urineon Amphetamine Screen, Ur Negative NEGATIVE [facility] Barbiturate Screen, Ur Negative NEGATIVE [facility] Benzodiazepine Screen, Urine Negative NEGATIVE [facility] Buprenorphine Urine Negative NEGATIVE [facility] Cannabinoid Scrn, Ur Negative NEGATIVE [employer] Cocaine Metabolite, Urine Negative NEGATIVE [facility] Methadone Screen, Urine Negative NEGATIVE [facility] Methamphetamine, Urine Negative NEGATIVE [facility] Opiates, Urine Negative NEGATIVE [employer] [facility] th Oxycodone Screen, Ur Negative NEGATIVE [employer] Phencyclidine, Urine Negative NEGATIVE [employer] Propoxyphene, Urine Negative NEGATIVE [facility] Tricyclic Antidepressants, Urine Negative NEGATIVE [employer] [facility] Comment on above: Drug screen results are to be used for medical purposes only. All positive results are unconfirmed. Testing for employment or legal uses should be sent to a reference laboratory for confirmation. [facility] EKG 12 LeadOrdered By: Gosia quinn on 05-20-2021 Atrial Rate 51 BPM [email or web address] Phone: P Bailey 56 degrees [email or web address] Phone: P-R Interval 152 ms [facility] Work Phone: Q-T Interval 448 ms [facility] Work Phone: QRS Duration 90 ms [facility] Work Phone: QTc Calculation (Bazett) 412 ms [facility] Work Phone: R Bailey 79 degrees [facility] Work Phone: T Bailey 62 degrees [facility] Work Phone: Ventricular Rate 51 BPM [employer] Work Phone: [facility] Work Phone: EKG 12 Leadon 05-20-2021 Sinus bradycardia wi th sinus arrhythmia T wave abnormality, consider anterior ischemia Abnormal ECG When compared with ECG of 16-APR-2021 20:11, No significant change was found Confirmed by Gosia Rangel MD ([id number]) on 05/20/2021 6:51:52 PM [facility] Gosia Rangel MD - 05/20/2021 Sinus bradycardia with sinus arrhythmia T wave abnormality, consider anterior ischemia Abnormal ECG When compared with ECG of 16-APR-2021 20:11, No significant change was found Confirmed by Gosia Rangel MD ([id number]) on 05/20/2021 6:51:52 PM [facility] Work Phone: Laboratory - Chemistry and C hemistry - challengeon 05-20-2021 GFR/1.73 sq M.predicted MDRD (S/P/Bld) [Vol rate/Area] [facility] Comment on above: Average GFR for 30-3 9 years old: 107 mL/min/1.73sq m Chronic Kidney Disease: <60 mL/min/1.73sq m Kidney failure: <15 mL/min/1.73sq m eGFR calculated using average adult body mass. Additional eGFR calculator available at: http://www.[employer]/multiple_crcl_2011.htm Stage 1: Some kidney damage normal GFR Stage 2: Mild kidney damage GFR 60-89 Stage 3: Moderate kidney damage GFR 30-59 Stage 4: Severe kidney damage GFR 15-29 Stage 5: Severe kidney damage GFR <15 ESRD - chronic treatment by dialysis or transplant Lactic Acidon 05-20-2021 Lactate [Moles/Vol] 0.9 mmol/L 0.5 - 2. 2 mmol/L [facility] Lipaseon 05-20-2021 Lipase [Catalytic activity/Vol] 46 U/L 13 - 60 U/L [facility] Microscopic Urinalysison - [facility] Bacteria, UA TRACE Abnormal None [facility] Epithelial Cells UA 0 TO 2 [facility] Interpretation and review of laboratory results Abnormal [facility] RBC, UA None [facility] WBC, UA None [facility] No Panel Informationon 05-20 [facility] Sedimentation Rateon 022 Sed Rate 9 [facility] TSH with Reflexon 05-20-2021 TSH Qn 1.20 m[IU]/L [facility] Troponinon 05-20-2021 Troponin, High Sensitivity <6 0 - 14 ng/L [facility] Comment on above: High Sensitivity Troponin values cannot be compared with other Troponin methodologies. Patients with high levels of Biotin oral intake (i.e >5mg/day) may have falsely decreased Troponin levels. Samples collected within 8 hours of biotin intake may require additional information for diagnosis. [facility] Troponin, High Sensitivity <6 0 - 14 ng/L [facility] Comment on above: High Sensitivity Troponin values cannot be compared with other Troponin methodologies. Patients with high levels of Biotin oral intake (i.e >5mg/day) may have falsely decreased Troponin levels. Samples collected within 8 hours of biotin intake may require additional information for diagnosis. Urinalysis with Reflex to Cu ltureon 05-20-2021 Bilirubin Urine Negative NEGATIVE [facility] lt Color, UA Yellow Yellow [facility] Glucose, Ur Negative NEGATIVE [facility] Interpretation and review of laboratory results Abnormal [facility] Ketones Ql (U) Negative NEGATIVE [facility] Leukocyte esterase Test strip Ql (U) Negative NEGATIVE [facility] Nitrite, Urine Negative NEGATIVE [facility] pH, UA 6.0 [facility] Protein, UA Negative NEGATIVE [facility] Specific [place], UA <1.005 Low [facility] Turbidity UA Clear Clear [facility] Urine Hgb Negative NEGATIVE [facility] Urobilinogen, Urine Normal Normal [facility] HDmessaging [facility] HDmessaging XR CHEST PORTABLEon 05-21-19 No abnormalities not ed. PN RIS CONSOLIDATED EXAMINATION: ONE XRAY VIEW OF THE CHEST 05/20/2021 1:33 pm COMPARISON: 04/16/2021 HISTORY: ORDERING SYSTEM PROVIDED HISTORY: chest pain TECHNOLOGIST PROVIDED HISTORY: chest pain FINDINGS: The lungs appear clear. The heart and mediastinal structures are unremarkable. Bony thorax appears normal. Visualized upper abdomen is unremarkable. [facility] RIS CONSOLIDATED Yoel Shabazz MD - 05/20/2021 EXAMINATION: ONE XRAY VIEW OF THE CHEST 05/20/2021 1:33 pm COMPARISON: 04/16/2021 HISTORY: ORDERING SYSTEM PROVIDED HISTORY: chest pain TECHNOLOGIST PROVIDED HISTORY: chest pain FINDINGS: The lungs appear clear. The heart and mediastinal structures are unremarkable. Bony thorax appears normal. Visualized upper abdomen is unremarkable. IMPRESSION: No abnormalities noted. [facility] Work Phone: Radiology Study observation (narrative) [facility] Work Phone: XR CHEST PORTABLEOrdered By: Yoel Shabazz on 05-20-2021 [facility] Work Phone: Basic Metabolic Panel w/ Ref douglas to MGon 04-16-2021 Anion gap [Moles/Vol] 11 mmol/L 9 - 17 mmol/L [facility] Calcium [Mass/Vol] 9.8 mg/dL 8.6 - 10. 4 mg/dL [facility] Chloride [Moles/Vol] 99 mmol/L 98 - 10 7 mmol/L [facility] CO2 [Moles/Vol] 24 mmol/L 20 - 31 mmol/L [facility] Creatinine [Mass/Vol] 0.85 mg/dL 0.50 - 0.90 mg/dL [facility] GFR >60 >60 mL/min [employer] GFR Non- >60 >60 mL/min [facility] Glucose [Mass/Vol] 97 mg/dL 70 - 99 mg/dL [facility] Interpretation and review of laboratory results Abnormal [facility] Potassium [Moles/Vol] 3.8 mmol/L 3.7 - 5.3 mmol/L [facility] Sodium [Moles/Vol] 134 mmol/L Low 135 - 144 mmol/L [facility] Urea nitrogen (BldV) [Mass/Vol] 9 mg/dL 6 - 20 mg/dL [facility] Urea nitrogen/Creatinine (Bld) [Mass ratio] 11 [facility] C-Reactive Proteinon 022 CRP [Mass/Vol] mg/L 0.0 - 5.0 mg/L [facility] CBC with Auto Differentialon 04-16-2021 Absolute Eos # 0.[address] [facility] th Absolute Immature Granulocyte 0.03 [facility] Absolute Lymph # 2.01 [facility] alth Absolute [place] # 0.47 [facility] Basophils (Bld) [#/Vol] 0.05 10*3/uL [facility] Basophils/100 WBC (Bld) 1 % 0 - 2 % [facility] Eosinophils/100 WBC (Bld) 2 % 1 - 4 % [facility] Hematocrit (Bld) [Volume fraction] 44.1 % 36.3 - 47.1 % [facility] Hemoglobin.gastroint estinal spec 1 Ql (Stl) 14.9 g/dL 11.9 - 15.1 g/dL [facility] Immature granulocytes/100 WBC (Bld) 0 % 0 [facility] Interpretation and review of laboratory results Abnormal [facility] Lymphocytes/100 WBC (Bld) 22 % Low 24 - 43 % [facility] MCH (RBC) [Entitic mass] 29.2 pg 25.2 - 33.5 pg [facility] MCHC (RBC) [Mass/Vol] 33.8 g/dL 28.4 - 34.8 g/dL [facility] MCV (RBC) [Entitic vol] 86.5 fL 82.6 - 102.9 fL [facility] Monocytes/100 WBC (Bld) 5 % 3 - 12 % [facility] NRBC Automated 0.0 0.0 per 100 WBC [facility] Platelet distribution width (Bld) [Ratio] 11.4 % Low 11.8 - 14.4 % [facility] Platelet mean volume (Bld) [Entitic vol] 9.5 fL 8.1 - 13.5 fL [facility] Platelets (Bld) [#/Vol] 265 10*3/uL [facility] RBC (Bld) [#/Vol] 5.10 10*6/uL 3.95 - 5.11 m/uL [facility] Segmented neutrophils/100 WBC (Bld) 70 % High 36 - 65 % [facility] Segs [facility] [facility] W[facility] (Bld) [#/Vol] 9.1 10*3/uL [facility] CT ABDOMEN PELVIS WO CONTRAS T Additional [...] lumbosacral facets and at the sacroiliac joints. [facility] Michael Frausto - 04/16 EXAMINATION: CT OF [...] the liver. Previous cholecystectomy without biliary dilatation. [email or web address] Phone: Radiology Study observation (narrative) [email or web address] Phone: CT ABDOMEN PELVIS WO CONTRAS T Additional Contrast? NoneOrdered By: Michael Frausto on 04-16-2021 [email or web address] Phone: D-Dimer, Quantitativeon 04-05 [employer]imer, Quant 0.37 [facility] Comment on above: When combined with [...] more prevalent in patients with distal DVT. [facility] Hepatic Function Panelon Albumin [Mass/Vol] 4.7 g/dL 3.5 - 5.2 g/dL [facility] HDmessaging Albumin/Globulin [Mass ratio] 1.8 {ratio} [facility] ALP (Bld) [Catalytic activity/Vol] 73 U/L 35 - 104 U/L [facility] ALT [Catalytic activity/Vol] 24 U/L 5 - 33 U/L [facility] AST [Catalytic activity/Vol] 14 U/L <32 [facility]messaging Bilirubin [Mass/Vol] 0.35 mg/dL 0.3 - 1 .2 mg/dL [facility] HDmessaging Bilirubin, Indirect Can not be calculated 0.00 - 1.00 mg/dL [facility] HDmessaging Bilirubin.indirect [Mass/Vol] mg/dL <0.31 mg/dL [facility] HDmessaging Free PSA/Total PSA [Mass fraction] 7.3 g/dL 6.4 - 8.3 g/dL [facility] Laboratory - Chemistry and C hemistry - challengeon 04-16-2021 GFR/1.73 sq M.predicted MDRD (S/P/Bld) [Vol rate/Area] [facility] Comment on above: Average GFR for 30-3 9 years old: 107 mL/min/1.73sq m Chronic Kidney Disease: <60 mL/min/1.73sq m Kidney failure: <15 mL/min/1.73sq m eGFR calculated using average adult body mass. Additional eGFR calculator available at: http://www.[employer]/multiple_crcl_2011.htm Stage 1: Some kidney damage normal GFR Stage 2: Mild kidney damage GFR 60-89 Stage 3: Moderate kidney damage GFR 30-59 Stage 4: Severe kidney damage GFR 15-29 Stage 5: Severe kidney damage GFR <15 ESRD - chronic treatment by dialysis or transplant Lipaseon 04-16-2021 Lipase [Catalytic activity/Vol] 29 U/L 13 - 60 U/L [facility] Microscopic Urinalysison - [employer] [facility]messaging Bacteria, UA 2+ Abnormal None [facility] HDmessaging Epithelial Cells UA 2 TO 5 [facility] Interpretation and review of laboratory results Abnormal [facility] RBC, UA 0 TO 2 [facility] WBC, UA 2 TO 5 [facility] No Panel Informationon 04-16 [facility] , Urineon 2 Beta HCG ( test) Ql (U) Negative NEGATIVE [facility] Comment on above: Specimens with hCG l evels near the threshold of the test (25 mIU/mL) may give a negative or indeterminate result. In such cases, another test should be performed with a new specimen in 48-72 hours. If early is suspected clinically in this setting, correlation with quantitative serum b-hCG level is suggested. [employer] has confirmed the use of plasma for this test. This has not been cleared or approved by the U.S. Food and Drug Administration. The FDA has determined that such clearance is not necessary. [facility] Sedimentation Rateon 022 Sed Rate 13 mm 0 - 20 mm [facility] Troponinon 04-16-2021 Troponin, High Sensitivity <6 0 - 14 ng/L [facility] Comment on above: High Sensitivity Troponin values cannot be compared with other Troponin methodologies. Patients with high levels of Biotin oral intake (i.e >5mg/day) may have falsely decreased Troponin levels. Samples collected within 8 hours of biotin intake may require additional information for diagnosis. [facility] Urinalysis with Reflex to Cu ltureon 04-16-2021 Bilirubin Urine Negative NEGATIVE [facility] Color, UA Yellow Yellow [facility] Glucose, Ur Negative NEGATIVE [facility] Interpretation and review of laboratory results Abnormal [facility] Ketones Ql (U) Negative NEGATIVE [facility] Leukocyte esterase Test strip Ql (U) TRACE Abnormal NEGATIVE [facility] Nitrite, Urine Negative NEGATIVE [facility] pH, UA 6.0 [facility] Protein, UA Negative NEGATIVE [facility] Specific [place], UA 1.015 [facility] Turbidity UA Clear Clear [facility] Urine Hgb Negative NEGATIVE [facility] Urobilinogen, Urine Normal Normal [facility] XR CHEST 1 VIEWon 04-16-2021 Clear lungs. [...] limits. No significant thoracic osseous abnormality. MHPN Christy Armstrong MD - 04/16/2021 EXAMINATION: ONE XRAY VIEW [...] IMPRESSION: Clear lungs. No acute cardiopulmonary abnormality. [email or web address] Phone: Radiology Study observation (narrative) [email or web address] Phone: XR CHEST 1 VIEWOrdered By: Arsenio Becerra on 04-16-2021 [email or web address] Phone: PULMONARY FUNCTION (450)on 0 03-07-2021 PULMONARY FUNCTION (450) [place] [address] PULMONARY FUNCTION PATIENT NAME: LEANA TRAN : 1985 MED REC NO: [id number] ROOM: ACCOUNT NO: [id number] ADMIT DATE: 03/07/2021 PROVIDER: Moris Alvarado DATE [...] is normal at 79% of predicted. MORIS ALVAARDO GALILEA/V_TTRAD_I Doc#: [id number] CC: Normal [facility] [id number] 03-07-2021 SARS-CoV-2 (COVID-19) RNA CHRISTI+probe Ql (Unsp spec) Not detected Normal [facility] Comment on above: Result Comment: Rapid [...] management decisions. Fact sheet for Healthcare Providers: https://www.fda.gov/media/015097/download Fact sheet for Patients: https://www.fda.gov/media/405782/download Methodology: Isothermal Nucleic Acid Amplification Performed By: #### C OVRB #### [facility] [address] [place] [address] Filler Operator: Belén Dale MD Basic Metabolic Panel w/ Ref douglas to MGOrdered By: Araseli Barrett on 11-01-2020 Anion gap [Moles/Vol] 19 mmol/L High 9 - 17 mmol/L [email or web address] Phone: Calcium [Mass/Vol] 9.4 mg/dL 8.6 - 10. 4 mg/dL [email or web address] Phone: Chloride [Moles/Vol] 94 mmol/L Low 98 - 10 7 mmol/L [email or web address] Phone: CO2 [Moles/Vol] 20 mmol/L 20 - 31 mmol/L [email or web address] Phone: Creatinine [Mass/Vol] 1.2 mg/dL High 0.50 - 0.90 mg/dL [email or web address] Phone: GFR >60 >60 mL/min [facility] Phone: GFR Non- 51 mL/min Low >60 [email or web address] Phone: Glucose [Mass/Vol] 217 mg/dL High 70 - 99 mg/dL [email or web address] Phone: Interpretation and review of laboratory results Abnormal [email or web address] Phone: Potassium [Moles/Vol] 3.5 mmol/L Low 3.7 - 5.3 mmol/L [email or web address] Phone: Sodium [Moles/Vol] 133 mmol/L Low 135 - 144 mmol/L [email or web address] Phone: Urea nitrogen (BldV) [Mass/Vol] 10 mg/dL 6 - 20 mg/dL [email or web address] Phone: Urea nitrogen/Creatinine (Bld) [Mass ratio] 8 Low [email or web address] Phone: [email or web address] Phone: CBC Auto DifferentialOrdered By: Araseli Barrett on 11-01-2020 Absolute Eos # <0.03 [employer] [facility] Work Phone: Absolute Immature Granulocyte 0.33 High [facility] Work Phone: Absolute Lymph # 0.80 [facility] Work Phone: Absolute [place] # 0.42 [employer] [facility] Work Phone: Basophils (Bld) [#/Vol] 10*3/uL [facility] Work Phone: Basophils/100 WBC (Bld) 0 % 0 - 2 % [facility] Work Phone: Differential Type NOT REPORTED [facility] Work Phone: Eosinophils/100 WBC (Bld) 0 % Low 1 - 4 % [facility] Work Phone: Hematocrit (Bld) [Volume fraction] 42.8 % 36.3 - 47.1 % [facility] Work Phone: Hemoglobin.gastroint estinal spec 1 Ql (Stl) 14.7 g/dL 11.9 - 15.1 g/dL [email or web address] Phone: Immature granulocytes/100 WBC (Bld) 4 % High 0 [email or web address] Phone: Interpretation and review of laboratory results Abnormal [email or web address] Phone: Lymphocytes/100 WBC (Bld) 9 % Low 24 - 43 % [facility] Work Phone: MCH (RBC) [Entitic mass] 30.1 pg 25.2 - 33.5 pg [facility] Work Phone: MCHC (RBC) [Mass/Vol] 34.3 g/dL 28.4 - 34.8 g/dL [email or web address] Phone: MCV (RBC) [Entitic vol] 87.5 fL 82.6 - 102.9 fL [facility] Work Phone: Monocytes/100 WBC (Bld) 5 % 3 - 12 % [email or web address] Phone: NRBC Automated 0.0 0.0 per 100 WBC [email or web address] Phone: Platelet distribution width (Bld) [Ratio] 11.4 % Low 11.8 - 14.4 % [email or web address] Phone: Platelet Estimate NOT REPORTED [email or web address] Phone: Platelet mean volume (Bld) [Entitic vol] 9.4 fL 8.1 - 13.5 fL [email or web address] Phone: Platelets (Bld) [#/Vol] 207 10*3/uL [email or web address] Phone: RBC (Bld) [#/Vol] 4.89 10*6/uL 3.95 - 5.11 m/uL [email or web address] Phone: RBC (Bld) [#/Vol] NOT REPORTED [email or web address] Phone: Segmented neutrophils/100 WBC (Bld) 82 % High 36 - 65 % [email or web address] Phone: Segs Absolute 7.82 [employer] Work Phone: WBC (Bld) [#/Vol] 9.4 10*3/uL [email or web address] Phone: WBC (Bld) [#/Vol] NOT REPORTED [email or web address] Phone: [email or web address] Phone: D-Dimer, QuantitativeOrdered By: Araseli Barrett on 11-01-2020 D-Dimer, Quant <0.27 [employer] Work Phone: Comment on above: When combined [...] more prevalent in patients with distal DVT. [email or web address] Phone: Laboratory - Chemistry and C hemistry - challengeOrdered By: Araseli Barrett on 11-01-2020 GFR/1.73 sq M.predicted MDRD (S/P/Bld) [Vol rate/Area] [email or web address] Phone: Comment on above: Average GFR for 30-3 9 years old: 107 mL/min/1.73sq m Chronic Kidney Disease: <60 mL/min/1.73sq m Kidney failure: <15 mL/min/1.73sq m eGFR calculated using average adult body mass. Additional eGFR calculator available at: http://www.[employer]Gate/multiple_crcl_2012.htm Stage 1: Some kidney damage normal GFR Stage 2: Mild kidney damage GFR 60-89 Stage 3: Moderate kidney damage GFR 30-59 Stage 4: Severe kidney damage GFR 15-29 Stage 5: Severe kidney damage GFR <15 ESRD - chronic treatment by dialysis or transplant MagnesiumOrdered By: Araseli Barrett on 11-01-2020 Magnesium [Mass/Vol] 1.6 mg/dL 1.6 - 2 .6 mg/dL [email or web address] Phone: [email or web address] Phone: TroponinOrdered By: Araseli Barrett on 11-01-2020 Troponin Interp NOT REPORTED [employer] [facility] Work Phone: Troponin T NOT REPORTED <0.03 ng/mL [email or web address] Phone: Troponin, High Sensitivity <6 0 - 14 ng/L [email or web address] Phone: Comment on above: High Sensitivity Troponin values cannot be compared with other Troponin methodologies. Patients with high levels of Biotin oral intake (i.e >5mg/day) may have falsely decreased Troponin levels. Samples collected within 8 hours of biotin intake may require additional information for diagnosis. [email or web address] Phone: XR CHEST PORTABLEOrdered By: Araseli Barrett on 11-01-2020 Negative chest. [employer] megan [facility] Work Phone: EXAMINATION: ONE XRA Y VIEW OF THE CHEST 11/01/2020 2:31 pm COMPARISON: 12/08/2014 HISTORY: ORDERING SYSTEM PROVIDED HISTORY: cough FINDINGS: The lungs are without acute focal process. No effusion or pneumothorax. The cardiomediastinal silhouette is normal. The osseous structures are intact without acute process. [email or web address] Phone: Oswaldo, Mhpn Incoming R adiant Results From [employer] - 11/01/2020 2:41 PM EDT EXAMINATION: ONE XRAY VIEW OF THE CHEST 11/01/2020 2:31 pm COMPARISON: 12/08/2014 HISTORY: ORDERING SYSTEM PROVIDED HISTORY: cough FINDINGS: The lungs are without acute focal process. No effusion or pneumothorax. The cardiomediastinal silhouette is normal. The osseous structures are intact without acute process. IMPRESSION: Negative chest. [email or web address] Phone: [email or web address] Phone: Feroz 09-15-2020 [facility] Telephone ([facility]) MARCLEANA Tan ([id number]) 1985 F Date Time Provider Department 09/15/20 LIS MORAES During your visit today, we recorded the following information about you: Demi Hazel Pss 09/15/2020 4:44 PM Signed Received MRI Brain report by fax from [facility]. Scanned to patient's chart. Savanna Juarez [...] by DEMI JOHNSON on 11/17/20 [facility] Ar 09-06-2020 [facility] Office Visit ([facility] ) LEANA TRAN ([id number]) 1985 F Date Time Provider Department 09/06/20 2:00 PM LIS MORAES During your visit today, we recorded the following information about you: Temperature Pulse Blood pressure Weight 97.8 degrees 67/minute 112/73 102.1 kg Height 1.626 m Lis Moraes MD 09/06/2020 3:10 PM Signed PROGRESS NOTE- HEADACHE SERVICE DATE: September 06, 2020 Location: [facility] Participants: patient and provider Requesting Provider: self [...] 10 days a month HPI: This is . Leana Tran, last seen on 03/23/2016, this [...] Contrast [Con (more content not included)... Normal [facility] Vital Signs Date Time Vital Sign Value Performing Clinician Facility 10-28-2024 08:18-0400 Body height 162.6 cm Terri Han MD Work Phone: [facility] 10-28-2024 08:18-0400 Body mass index (BMI) [Ratio] 39.32 kg/m2 Terri Han MD Work Phone: [facility] 10-28-2024 08:18-0400 Body temperature 97.9 [degF] Terri Han MD Work Phone: [facility] 10-28-2024 08:18-0400 Body weight 103.96 kg Terri Han MD Work Phone: [facility] 09-30-2024 08:54-0400 Body height 162.6 cm Margot Limon APRN.[employer] Work Phone: [facility] 09-30-2024 08:54-0400 Body mass index (BMI) [Ratio] 39.45 kg/m2 Margot Limon APRN.[employer] Work Phone: [facility] 09-30-2024 08:54-0400 Body temperature 97.5 [degF] Margot Limon APRN.[employer] Work Phone: [facility] 09-30-2024 08:54-0400 Body weight 104.3 kg Margot Sonam RIB BUILDER.[employer] Work Phone: [facility] 09-30-2024 08:54-0400 Diastolic blood pressure 80 mm[Hg] Margot Sonam RIB BUILDER.[employer] Work Phone: [facility] 09-30-2024 08:54-0400 Heart rate 70 /min Margot Sonam RIB BUILDER.[employer] Work Phone: [facility] 09-30-2024 08:54-0400 Respiratory rate 16 /min Margot Sonam RIB BUILDER.[employer] Work Phone: [facility] 09-30-2024 08:54-0400 SaO2% (BldA) [Mass fraction] 100 % Margot Sonam RIB BUILDER.[employer] Work Phone: [facility] 09-30-2024 08:54-0400 Systolic blood pressure 129 mm[Hg] Margot Sonam RIB BUILDER.[employer] Work Phone: [facility] 09-25-2024 15:50-0400 Body height 162.6 cm Cas Dowell MD Work Phone: [facility] 09-25-2024 15:50-0400 Body mass index (BMI) [Ratio] 39.14 kg/m2 Cas Dowell MD Work Phone: [facility] 09-25-2024 15:50-0400 Body temperature 97.5 [degF] Cas Dowell MD Work Phone: [facility] 09-25-2024 15:50-0400 Body weight 103.42 kg Cas Dowell MD Work Phone: [facility] 09-25-2024 15:50-0400 Diastolic blood pressure 84 mm[Hg] Cas Dowell MD Work Phone: [facility] 09-25-2024 15:50-0400 Heart rate 67 /min Cas Dowell MD Work Phone: [facility] 09-25-2024 15:50-0400 Respiratory rate 20 /min Cas Dowell MD Work Phone: [facility] 09-25-2024 15:50-0400 SaO2% (BldA) [Mass fraction] 98 % Cas Dowell MD Work Phone: [facility] 09-25-2024 15:50-0400 Systolic blood pressure 138 mm[Hg] Cas Dowell MD Work Phone: [facility] 09-08-2024 11:44-0400 Body height 162.56 cm Cas Dowell MD Work Phone: [facility] 09-08-2024 11:44-0400 Body mass index (BMI) [Ratio] 38.7 kg/m2 Cas Dowell MD Work Phone: [facility] 09-08-2024 11:44-0400 Body temperature 98.3 [degF] Cas Dowell MD Work Phone: [facility] 09-08-2024 11:44-0400 Body weight 102.51 kg Cas Dowell MD Work Phone: [facility] 09-08-2024 11:44-0400 Diastolic blood pressure 75 mm[Hg] Cas Dowell MD Work Phone: [facility] 09-08-2024 11:44-0400 Heart rate 74 /min Cas Dowell MD Work Phone: [facility] 09-08-2024 11:44-0400 Respiratory rate 16 /min Cas Dowell MD Work Phone: [facility] 09-08-2024 11:44-0400 SaO2% (BldA) [Mass fraction] 99 % Cas Dowell MD Work Phone: [facility] 09-08-2024 11:44-0400 Systolic blood pressure 121 mm[Hg] Cas Dowell MD Work Phone: [facility] 08-22-2024 10:23-0400 Body height 162.6 cm Mth 1 [facility] [employer] 08-22-2024 10:23-0400 Body mass index (BMI) [Ratio] 38.28 kg/m2 Mth 1 [facility] 08-22-2024 10:23-0400 Body weight 101.2 kg Mth 1 [facility] [employer] 08-22-2024 10:23-0400 Diastolic blood pressure 80 mm[Hg] Mth 1 [facility] 08-22-2024 10:23-0400 Systolic blood pressure 133 mm[Hg] Mth 1 [facility] 08-11-2024 09:23-0400 Body height 162.6 cm Cas Dowell MD Work Phone: [facility] 08-11-2024 09:23-0400 Body mass index (BMI) [Ratio] 38.96 kg/m2 Cas Dowell MD Work Phone: [facility] 08-11-2024 09:23-0400 Body temperature 97.5 [degF] Cas Dowell MD Work Phone: [facility] 08-11-2024 09:23-0400 Body weight 102.97 kg Cas Dowell MD Work Phone: [facility] 08-11-2024 09:23-0400 Diastolic blood pressure 68 mm[Hg] Cas Dowell MD Work Phone: [facility] 08-11-2024 09:23-0400 Heart rate 71 /min Cas Dowell MD Work Phone: [facility] 08-11-2024 09:23-0400 Respiratory rate 20 /min Cas Dowell MD Work Phone: [facility] 08-11-2024 09:23-0400 SaO2% (BldA) [Mass fraction] 99 % Cas Dowell MD Work Phone: [facility] 08-11-2024 09:23-0400 Systolic blood pressure 122 mm[Hg] Cas Dowell MD Work Phone: [facility] 02-27-2024 08:18-0500 Body height 162.6 cm Cas Dowell MD Work Phone: [facility] 02-27-2024 08:18-0500 Body mass index (BMI) [Ratio] 37.76 kg/m2 Cas Dowell MD Work Phone: [facility] 02-27-2024 08:18-0500 Body temperature 97.11 [degF] Cas Dowell MD Work Phone: [facility] 02-27-2024 08:18-0500 Body weight 99.79 kg Cas Dowell MD Work Phone: [facility] 02-27-2024 08:18-0500 Diastolic blood pressure 64 mm[Hg] Cas Dowell MD Work Phone: [facility] 02-27-2024 08:18-0500 Heart rate 77 /min Cas Dowell MD Work Phone: [facility] 02-27-2024 08:18-0500 Respiratory rate 20 /min Cas Dowell MD Work Phone: [facility] 02-27-2024 08:18-0500 SaO2% (BldA) [Mass fraction] 98 % Cas Dowell MD Work Phone: [facility] 02-27-2024 08:18-0500 Systolic blood pressure 120 mm[Hg] Cas Dowell MD Work Phone: [facility] 02-11-2024 09:59-0500 Body height 162.6 cm Cas Dowell MD Work Phone: [facility] 02-11-2024 09:59-0500 Body mass index (BMI) [Ratio] 37.93 kg/m2 Cas Dowell MD Work Phone: [facility] 02-11-2024 09:59-0500 Body temperature 97.5 [degF] Cas Dowell MD Work Phone: [facility] 02-11-2024 09:59-0500 Body weight 100.25 kg Cas Dowell MD Work Phone: [facility] 02-11-2024 09:59-0500 Diastolic blood pressure 68 mm[Hg] Cas Dowell MD Work Phone: [facility] 02-11-2024 09:59-0500 Heart rate 90 /min Cas Dowell MD Work Phone: [facility] 02-11-2024 09:59-0500 Respiratory rate 22 /min Cas Dowell MD Work Phone: [facility] 02-11-2024 09:59-0500 SaO2% (BldA) [Mass fraction] 97 % Cas Dowell MD Work Phone: [facility] 02-11-2024 09:59-0500 Systolic blood pressure 120 mm[Hg] Cas Dowell MD Work Phone: [facility] 01-02-2024 10:07-0500 Body height 162.6 cm Marni Flowers R[employer] BUILDER-[employer] Work Phone: [facility] 01-02-2024 10:07-0500 Body mass index (BMI) [Ratio] 38.11 kg/m2 Marni Flowers R[employer] BUILDER[employer] Work Phone: [facility] 01-02-2024 10:07-0500 Body weight 100.7 kg Marni Flowers R[employer] BUILDER[employer] Work Phone: [facility] 01-02-2024 10:07-0500 Diastolic blood pressure 77 mm[Hg] Marni Flowers R[employer] BUILDER[employer] Work Phone: [facility] 01-02-2024 10:07-0500 Heart rate 79 /min Marni Lionel R[employer] BUILDER[employer] Work Phone: [facility] 01-02-2024 10:07-0500 Systolic blood pressure 127 mm[Hg] Marni Flowers R[employer] BUILDER[employer] Work Phone: [facility] 11-22-2023 09:01-0400 Body mass index (BMI) [Ratio] 38.42 kg/m2 Akila Yao MD Work Phone: [facility] 11-22-2023 09:01-0400 Body weight 101.52 kg Akila Yao MD Work Phone: [facility] 11-22-2023 09:01-0400 Diastolic blood pressure 84 mm[Hg] Akila Yao MD Work Phone: [facility] 11-22-2023 09:01-0400 Heart rate 59 /min Akila Yao MD Work Phone: [facility] 11-22-2023 09:01-0400 Systolic blood pressure 124 mm[Hg] Akila Yao MD Work Phone: [facility] 11-20-2023 11:40-0400 Body mass index (BMI) [Ratio] 38.11 kg/m2 Rubens Glenroy DO Work Phone: [facility] 11-20-2023 11:40-0400 Body weight 100.7 kg Rubens Glenroy DO Work Phone: [facility] 11-20-2023 11:40-0400 Diastolic blood pressure 80 mm[Hg] Rubens Glenroy DO Work Phone: [facility] 11-20-2023 11:40-0400 Systolic blood pressure 120 mm[Hg] Rubens Glenroy DO Work Phone: [facility] 11-07-2023 10:33-0400 Body height 162.6 cm Christy Painting MD Work Phone: [facility] 11-07-2023 10:33-0400 Body mass index (BMI) [Ratio] 37.93 kg/m2 Christy Painting MD Work Phone: [facility] 11-07-2023 10:33-0400 Body weight 100.25 kg Christy Painting MD Work Phone: [facility] 10-10-2023 09:06-0400 Body height 162.6 cm Cas Dowell MD Work Phone: [facility] 10-10-2023 09:06-0400 Body mass index (BMI) [Ratio] 37.76 kg/m2 Cas Dowell MD Work Phone: [facility] 10-10-2023 09:06-0400 Body temperature 97.81 [degF] Cas Dowell MD Work Phone: [facility] 10-10-2023 09:06-0400 Body weight 99.79 kg Cas Dowell MD Work Phone: [facility] 10-10-2023 09:06-0400 Diastolic blood pressure 78 mm[Hg] Cas Dowell MD Work Phone: [facility] 10-10-2023 09:06-0400 Heart rate 82 /min Cas Dowell MD Work Phone: [facility] 10-10-2023 09:06-0400 Respiratory rate 20 /min Cas Dowell MD Work Phone: [facility] 10-10-2023 09:06-0400 SaO2% (BldA) [Mass fraction] 98 % Cas Dowell MD Work Phone: [facility] 10-10-2023 09:06-0400 Systolic blood pressure 122 mm[Hg] Cas Dowell MD Work Phone: [facility] 10-02-2023 14:46-0400 Blood Pressure Location [place] 10-02-2023 14:46-0400 Body temperature 98.6 [degF] [place] 10-02-2023 14:46-0400 Diastolic blood pressure 84 mm[Hg] [place] 10-02-2023 14:46-0400 Heart rate 68 /min [place] Orzech [facility] 10-02-2023 14:46-0400 Respiratory rate 16 /min [place] Orzech [facility] 10-02-2023 14:46-0400 Systolic blood pressure 130 mm[Hg] [place] Orzech [facility] 10-01-2023 09:45-0400 Body height 162.6 cm Fuentes Amaral MD Work Phone: [facility] 10-01-2023 09:45-0400 Body mass index (BMI) [Ratio] 37.82 kg/m2 Fuentes Amaral MD Work Phone: [facility] 10-01-2023 09:45-0400 Body temperature 97 [degF] Fuentes Amaral MD Work Phone: [facility] 10-01-2023 09:45-0400 Body weight 100 kg Fuentes Amaral MD Work Phone: [facility] 10-01-2023 09:45-0400 Diastolic blood pressure 84 mm[Hg] Fuentes Amaral MD Work Phone: [facility] 10-01-2023 09:45-0400 Heart rate 71 /min Fuentes Amaral MD Work Phone: [facility] 10-01-2023 09:45-0400 Respiratory rate 16 /min Fuentes Amaral MD Work Phone: [facility] 10-01-2023 09:45-0400 SaO2% (BldA) [Mass fraction] 99 % Fuentes Amaral MD Work Phone: [facility] 10-01-2023 09:45-0400 Systolic blood pressure 123 mm[Hg] Fuentes Amaral MD Work Phone: [facility] 09-26-2023 09:28-0400 Body height 162.6 cm Cas Dowell MD Work Phone: [facility] 09-26-2023 09:28-0400 Body mass index (BMI) [Ratio] 38.11 kg/m2 Cas Dowell MD Work Phone: [facility] 09-26-2023 09:28-0400 Body temperature 97.81 [degF] Cas Dowell MD Work Phone: [facility] 09-26-2023 09:28-0400 Body weight 100.7 kg Cas Dowell MD Work Phone: [facility] 09-26-2023 09:28-0400 Diastolic blood pressure 68 mm[Hg] Cas Dowell MD Work Phone: [facility] 09-26-2023 09:28-0400 Heart rate 63 /min Cas Dowell MD Work Phone: [facility] 09-26-2023 09:28-0400 Respiratory rate 18 /min Cas Dowell MD Work Phone: [facility] 09-26-2023 09:28-0400 SaO2% (BldA) [Mass fraction] 99 % Cas Dowell MD Work Phone: [facility] 09-26-2023 09:28-0400 Systolic blood pressure 122 mm[Hg] Cas Dowell MD Work Phone: [facility] 05-08-2023 08:47-0400 Body mass index (BMI) [Ratio] 36.9 kg/m2 Sarah Best APRN-[employer]ER Work Phone: [facility] 05-08-2023 08:47-0400 Body weight 97.52 kg Sarah Best APRN-[employer] Work Phone: [facility] 05-08-2023 08:47-0400 Diastolic blood pressure 87 mm[Hg] Sarah Best R[employer] BUILDER[employer] Work Phone: [facility] 05-08-2023 08:47-0400 Heart rate 63 /min Sarah Hiren RIB BUILDER[employer] Work Phone: [facility] 05-08-2023 08:47-0400 Systolic blood pressure 134 mm[Hg] Sarah Hiren R[employer] BUILDER[employer] Work Phone: [facility] 10-02-2022 09:29-0400 Body height 162.6 cm Fuentes Amaral MD Work Phone: [facility] 10-02-2022 09:29-0400 Body temperature 97.7 [degF] Fuentes Amaral MD Work Phone: [facility] 10-02-2022 09:29-0400 Body weight 100.15 kg Fuentes Amaral MD Work Phone: [facility] 10-02-2022 09:29-0400 Diastolic blood pressure 79 mm[Hg] Fuentes Amaral MD Work Phone: [facility] 10-02-2022 09:29-0400 Heart rate 58 /min Fuentes Amaral MD Work Phone: [facility] 10-02-2022 09:29-0400 Respiratory rate 16 /min Fuentes Amaral MD Work Phone: [facility] 10-02-2022 09:29-0400 SaO2% (BldA) [Mass fraction] 99 % Fuentes Amaral MD Work Phone: [facility] 10-02-2022 09:29-0400 Systolic blood pressure 140 mm[Hg] Fuentes Amaral MD Work Phone: [facility] 09-05-2022 08:23-0400 Blood Pressure Location [place] [facility] 09-05-2022 08:23-0400 Diastolic blood pressure 79 mm[Hg] LORAINE BURNHAM [facility] 09-05-2022 08:23-0400 Heart rate 60 /min LORAINE BURNHAM [facility] 09-05-2022 08:23-0400 Systolic blood pressure 133 mm[Hg] LORAINE BURNHAM [facility] 04-03-2022 10:39-0500 Body height 162.6 cm Fuentes Amaral MD Work Phone: [facility] 04-03-2022 10:39-0500 Body temperature 97.9 [degF] Fuentes Amaral MD Work Phone: [facility] 04-03-2022 10:39-0500 Body weight 99.34 kg Fuentes Amaral MD Work Phone: [facility] 04-03-2022 10:39-0500 Diastolic blood pressure 65 mm[Hg] Fuentes Amaral MD Work Phone: [facility] 04-03-2022 10:39-0500 Heart rate 74 /min Fuentes Amaral MD Work Phone: [facility] 04-03-2022 10:39-0500 Respiratory rate 16 /min Fuentes Amaral MD Work Phone: [facility] 04-03-2022 10:39-0500 SaO2% (BldA) [Mass fraction] 98 % Fuentes Amaral MD Work Phone: [facility] 04-03-2022 10:39-0500 Systolic blood pressure 147 mm[Hg] Fuentes Amaral MD Work Phone: [facility] 02-28-2022 08:30-0500 Blood Pressure Location LORAINEJEANETTE BURNH[facility] 02-28-2022 08:30-0500 Diastolic blood pressure 83 mm[Hg] LORAINE BURNHAM [facility] 02-28-2022 08:30-0500 Heart rate 74 /min LORAINE BURNHAM [facility] 02-28-2022 08:30-0500 Respiratory rate 16 /min LORAINE BURNHAM [facility] 02-28-2022 08:30-0500 Systolic blood pressure 121 mm[Hg] [place]AINE BURNH[facility] 02-10-2022 14:07-0500 Body height 162.6 cm Fuentes Amaral MD Work Phone: [facility] 02-10-2022 14:07-0500 Body temperature 97.9 [degF] Fuentes Amaral MD Work Phone: [facility] 02-10-2022 14:07-0500 Body weight 98.25 kg Fuentes Amaral MD Work Phone: [facility] 02-10-2022 14:07-0500 Diastolic blood pressure 59 mm[Hg] Fuentes Amaral MD Work Phone: [facility] 02-10-2022 14:07-0500 Heart rate 97 /min Feuntes Amaral MD Work Phone: [facility] 02-10-2022 14:07-0500 Respiratory rate 16 /min Fuentes Amaral MD Work Phone: [facility] 02-10-2022 14:07-0500 SaO2% (BldA) [Mass fraction] 99 % Fuentes Amaral MD Work Phone: [facility] 02-10-2022 14:07-0500 Systolic blood pressure 124 mm[Hg] Fuentes Amaral MD Work Phone: [facility] 2021 08:48-0500 Blood Pressure Location [facility]AINE BUR[facility] 2021 08:48-0500 Diastolic blood pressure 77 mm[Hg] LORAINE BURNHAM [facility] 2021 08:48-0500 Heart rate 81 /min LORAINE BURNHAM [facility] 2021 08:48-0500 Systolic blood pressure 118 mm[Hg] LORAINE BURNHAM [facility] 11-18-2021 13:44-0400 Body height 162.6 cm Fuentes Amaral MD Work Phone: [facility] 11-18-2021 13:44-0400 Body temperature 97.81 [degF] Fuentes Amaral MD Work Phone: [facility] 11-18-2021 13:44-0400 Body weight 101.24 kg Fuentes Amaarl MD Work Phone: [facility] 11-18-2021 13:44-0400 Diastolic blood pressure 73 mm[Hg] Fuentes Amaral MD Work Phone: [facility] 11-18-2021 13:44-0400 Heart rate 66 /min Fuentes Amaral MD Work Phone: [facility] 11-18-2021 13:44-0400 Respiratory rate 16 /min Fuentes Amaral MD Work Phone: [facility] 11-18-2021 13:44-0400 SaO2% (BldA) [Mass fraction] 100 % Fuentes Amaral MD Work Phone: [facility] 11-18-2021 13:44-0400 Systolic blood pressure 121 mm[Hg] Fuentes Amaral MD Work Phone: [facility] 11-03-2021 10:37-0400 Body height 162.6 cm Fuentes Amaral MD Work Phone: [facility] 11-03-2021 10:37-0400 Body temperature 97.59 [degF] Fuentes Amaral MD Work Phone: [facility] 11-03-2021 10:37-0400 Body weight 99.97 kg Fuentes Amaral MD Work Phone: [facility] 11-03-2021 10:37-0400 Diastolic blood pressure 63 mm[Hg] Fuentes Amaral MD Work Phone: [facility] 11-03-2021 10:37-0400 Heart rate 59 /min Fuentes Amaral MD Work Phone: [facility] 11-03-2021 10:37-0400 Respiratory rate 16 /min Fuentes Amaral MD Work Phone: [facility] 11-03-2021 10:37-0400 SaO2% (BldA) [Mass fraction] 99 % Fuetnes Amaral MD Work Phone: [facility] 11-03-2021 10:37-0400 Systolic blood pressure 120 mm[Hg] Fuentes Amaral MD Work Phone: [facility] 09-27-2021 08:00-0400 Body height 162.6 cm [facility] [place] Work Phone: [facility] 09-27-2021 08:00-0400 Body weight 99.79 kg [facility] [place] Work Phone: [facility] 09-21-2021 15:37-0400 Body height 160 cm Ruth Villaseñor MD Work Phone: [facility] 09-21-2021 15:37-0400 Body temperature 97.5 [degF] Ruth Villaseñor MD Work Phone: [facility] 09-21-2021 15:37-0400 Body weight 100.61 kg Ruth Villaseñor MD Work Phone: [facility] 09-21-2021 15:37-0400 Diastolic blood pressure 72 mm[Hg] Ruth Villaseñor MD Work Phone: [facility] 09-21-2021 15:37-0400 Heart rate 72 /min Ruth Villaseñor MD Work Phone: [facility] 09-21-2021 15:37-0400 SaO2% (BldA) [Mass fraction] 97 % Ruth Villaseñor MD Work Phone: [facility] 09-21-2021 15:37-0400 Systolic blood pressure 131 mm[Hg] Ruth Villaseñor MD Work Phone: [facility] 09-19-2021 13:59-0400 Body temperature 98.29 [degF] Landen Timoteo R[employer] BUILDER.[employer] Work Phone: [facility] 09-19-2021 13:59-0400 Body weight 99.79 kg Landen Timoteo R[employer] BUILDER.[employer] Work Phone: [facility] 09-19-2021 13:59-0400 Diastolic blood pressure 53 mm[Hg] Landen Timoteo RIB BUILDER.[employer] Work Phone: [facility] 09-19-2021 13:59-0400 Heart rate 70 /min Landen Timoteo RIB BUILDER.[employer]ER Work Phone: [facility] 09-19-2021 13:59-0400 Respiratory rate 18 /min Landen Timoteo RIB BUILDER.[employer]ER Work Phone: [facility] 09-19-2021 13:59-0400 SaO2% (BldA) [Mass fraction] 98 % Landen Mahmood RIB BUILDER.[employer]ER Work Phone: [facility] 09-19-2021 13:59-0400 Systolic blood pressure 128 mm[Hg] Landen Timoteo RIB BUILDER.[employer]ER Work Phone: [facility] 09-05-2021 15:55-0400 Diastolic blood pressure 50 mm[Hg] Christine Abraham DO Work Phone: [facility] [email or web address] 09-05-2021 15:55-0400 Heart rate 103 /min Christine Abraham DO Work Phone: [facility] [email or web address] 09-05-2021 15:55-0400 Respiratory rate 28 /min Christine Abraham DO Work Phone: [facility] [email or web address] 09-05-2021 15:55-0400 SaO2% (BldA) [Mass fraction] 96 % Christine Abraham DO Work Phone: [facility] [email or web address] 09-05-2021 15:55-0400 Systolic blood pressure 115 mm[Hg] Christine Abraham DO Work Phone: [facility] [email or web address] 09-05-2021 13:29-0400 Body height 162.6 cm Christine Abraham DO Work Phone: [facility] [email or web address] 09-05-2021 13:29-0400 Body mass index (BMI) [Ratio] 37.25 kg/m2 Christine Abraham DO Work Phone: [facility] [email or web address] 09-05-2021 13:29-0400 Body temperature 98.2 [degF] Christine Abraham DO [facility] 09-05-2021 13:29-0400 Body weight 98.43 kg Christine Abraham DO Work Phone[facility] 08-15-2021 08:54-0400 Body height 162.6 cm Berlin Avila III, MD Work Phone: [facility] 08-15-2021 08:54-0400 Body weight 98.84 kg Berlin Avila III, MD Work Phone: [facility] 08-12-2021 10:00-0400 Body height 162.6 cm [employer] Work Phone: [facility] 08-12-2021 10:00-0400 Body weight 98 kg [employer] Work Phone: [facility] 08-12-2021 10:00-0400 Diastolic blood pressure 72 mm[Hg] [employer] Work Phone: [facility] 08-12-2021 10:00-0400 Heart rate 79 /min [employer] Work Phone: [facility] 08-12-2021 10:00-0400 Systolic blood pressure 108 mm[Hg] [employer] Work Phone: [facility] 07-25-2021 09:30-0400 Body height 162.6 cm Henny Rushing MD Work Phone: [facility] 07-25-2021 09:30-0400 Body temperature 97.2 [degF] Henny Rushing MD Work Phone: [facility] 07-25-2021 09:30-0400 Body weight 97.48 kg Henny Rushing MD Work Phone: [facility] 07-25-2021 09:30-0400 Diastolic blood pressure 62 mm[Hg] Henny Rushing MD Work Phone: [facility] 07-25-2021 09:30-0400 Heart rate 83 /min Henny Rushing MD Work Phone: [facility] 07-25-2021 09:30-0400 Respiratory rate 14 /min Henny Rushing MD Work Phone: [facility] 07-25-2021 09:30-0400 SaO2% (BldA) [Mass fraction] 99 % Henny Rushing MD Work Phone: [facility] 07-25-2021 09:30-0400 Systolic blood pressure 104 mm[Hg] Henny Rushing MD Work Phone: [facility] 07-22-2021 14:12-0400 Body height 162.6 cm Yan Bass MD Work Phone: [facility] 07-22-2021 14:12-0400 Body temperature 97.5 [degF] Yan Bass MD Work Phone: [facility] 07-22-2021 14:12-0400 Body weight 97.98 kg Yan Bass MD Work Phone: [facility] 07-22-2021 14:12-0400 Diastolic blood pressure 79 mm[Hg] Yan Bass MD Work Phone: [facility] 07-22-2021 14:12-0400 Heart rate 71 /min Yan Bass MD Work Phone: [facility] 07-22-2021 14:12-0400 Respiratory rate 16 /min Yan Bass MD Work Phone: [facility] 07-22-2021 14:12-0400 SaO2% (BldA) [Mass fraction] 97 % Yan Bass MD Work Phone: [facility] 07-22-2021 14:12-0400 Systolic blood pressure 129 mm[Hg] Yan Bass MD Work Phone: [facility] 07-21-2021 13:36-0400 Respiratory rate 20 /min Sai Perez MD Work Phone: [facility] 07-21-2021 13:36-0400 SaO2% (BldA) [Mass fraction] 100 % Sai Perez MD Work Phone: [facility] 07-21-2021 13:29-0400 Diastolic blood pressure 67 mm[Hg] Sai Perez MD Work Phone: [facility] 07-21-2021 13:29-0400 Heart rate 62 /min Sai Perez MD Work Phone: [facility] 07-21-2021 13:29-0400 Systolic blood pressure 130 mm[Hg] Sai Perez MD Work Phone: [facility] 06-09-2022 10:40-0400 Diastolic blood pressure 75 mm[Hg] Aldo Ann MD Work Phone: [facility] 07-14-2021 10:40-0400 Heart rate 74 /min Aldo Ann MD Work Phone: [facility] 07-14-2021 10:40-0400 SaO2% (BldA) [Mass fraction] 98 % Aldo Ann MD Work Phone: [facility] 07-14-2021 10:40-0400 Systolic blood pressure 128 mm[Hg] Aldo Ann MD Work Phone: [facility] 07-06-2021 12:39-0400 Body height 162.6 cm Tracee Mcintyre MD Work Phone: [facility] 07-06-2021 12:39-0400 Body weight 97.52 kg Tracee Mcintyre MD Work Phone: [facility] 07-06-2021 12:39-0400 Diastolic blood pressure 68 mm[Hg] Tracee Mcintyre MD Work Phone: [facility] 07-06-2021 12:39-0400 Heart rate 61 /min Tracee Mcintyre MD Work Phone: [facility] 07-06-2021 12:39-0400 Respiratory rate 16 /min Tracee Mcintyre MD Work Phone: [facility] 07-06-2021 12:39-0400 SaO2% (BldA) [Mass fraction] 99 % Tracee Mcintyre MD Work Phone: [facility] 07-06-2021 12:39-0400 Systolic blood pressure 111 mm[Hg] Tracee Mcintyre MD Work Phone: [facility] 07-01-2021 10:02-0400 Body height 162.6 cm Yan Bass MD Work Phone: [facility] 07-01-2021 10:02-0400 Body temperature 97.59 [degF] Yan Bass MD Work Phone: [facility] 07-01-2021 10:02-0400 Body weight 97.98 kg Yan Bass MD Work Phone: [facility] 07-01-2021 10:02-0400 Diastolic blood pressure 97 mm[Hg] Yan Bass MD Work Phone: [facility] 07-01-2021 10:02-0400 Heart rate 87 /min Yan Bass MD Work Phone: [facility] 07-01-2021 10:02-0400 Respiratory rate 16 /min Yan Bass MD Work Phone: [facility] 07-01-2021 10:02-0400 SaO2% (BldA) [Mass fraction] 99 % Yan Bass MD Work Phone: [facility] 07-01-2021 10:02-0400 Systolic blood pressure 138 mm[Hg] Yan Bass MD Work Phone: [facility] 06-27-2021 11:45-0400 Diastolic blood pressure 70 mm[Hg] Peter Willio R[employer] BUILDER.[employer] Work Phone: [facility] 06-27-2021 11:45-0400 Heart rate 96 /min Peter Taqueriazzo R[employer] BUILDER.[employer] Work Phone: [facility] 06-27-2021 11:45-0400 Respiratory rate 20 /min Peter Taqueriazzo R[employer] BUILDER.[employer] Work Phone: [facility] 06-27-2021 11:45-0400 SaO2% (BldA) [Mass fraction] 99 % Peter Taqueriazzo RIB BUILDER.ASSISTANT PLANT CONTROLLER Work Phone: [facility] 06-27-2021 11:45-0400 Systolic blood pressure 147 mm[Hg] Peter Guzzo RIB BUILDER.ASSISTANT PLANT CONTROLLER Work Phone: [facility] 06-27-2021 11:30-0400 Body temperature 98.1 [degF] Peter Guzzo RIB BUILDER.ASSISTANT PLANT CONTROLLER Work Phone: [facility] 06-27-2021 10:53-0400 Body height 162.6 cm Peter Knight RIB BUILDER.ASSISTANT PLANT CONTROLLER Work Phone: [facility] 06-27-2021 10:53-0400 Body weight 95.71 kg Peter Knight RIB BUILDER.ASSISTANT PLANT CONTROLLER Work Phone: [facility] 06-21-2021 01:00-0400 Diastolic blood pressure 84 mm[Hg] Sean Andes DO Work Phone: [facility] 06-21-2021 01:00-0400 Heart rate 87 /min Sean Andes DO Work Phone: [facility] 06-21-2021 01:00-0400 Respiratory rate 21 /min Sean Andes DO Work Phone: [facility] 06-21-2021 01:00-0400 SaO2% (BldA) [Mass fraction] 90 % Sean Andes DO Work Phone: [facility] 06-21-2021 01:00-0400 Systolic blood pressure 121 mm[Hg] Sean Andes DO Work Phone: [facility] 06-21-2021 00:04-0400 Body temperature 98.6 [degF] Sean Andes DO Work Phone: [facility] 06-14-2021 09:07-0400 Body height 162.6 cm Jackelyn Marques MD Work Phone: [facility] 06-14-2021 09:07-0400 Body weight 96.66 kg Jackelyn aMrques MD Work Phone: [facility] 06-14-2021 09:07-0400 Diastolic blood pressure 80 mm[Hg] Jackelyn Marques MD Work Phone: [facility] 06-14-2021 09:07-0400 Heart rate 71 /min Jackelyn Marques MD Work Phone: [facility] 06-14-2021 09:07-0400 Systolic blood pressure 126 mm[Hg] Jackelyn Marques MD Work Phone: [facility] 06-10-2021 09:45-0400 Body height 162.6 cm Yan Bass MD Work Phone: [facility] 06-10-2021 09:45-0400 Body temperature 97.39 [degF] Yan Bass MD Work Phone: [facility] 06-10-2021 09:45-0400 Body weight 97.61 kg Yan Bass MD Work Phone: [facility] 06-10-2021 09:45-0400 Diastolic blood pressure 50 mm[Hg] Yan Bass MD Work Phone: [facility] 06-10-2021 09:45-0400 Heart rate 64 /min Yan Bass MD Work Phone: [facility] 06-10-2021 09:45-0400 Respiratory rate 16 /min Yan Bass MD Work Phone: [facility] 06-10-2021 09:45-0400 SaO2% (BldA) [Mass fraction] 100 % Yan Bass MD Work Phone: [facility] 06-10-2021 09:45-0400 Systolic blood pressure 124 mm[Hg] Yan Bass MD Work Phone: [facility] 06-04-2021 19:43-0400 Diastolic blood pressure 49 mm[Hg] Brian Santana MD Work Phone: [facility] 06-04-2021 19:43-0400 Heart rate 69 /min Brian Santana MD Work Phone: [facility] 06-04-2021 19:43-0400 Respiratory rate 23 /min Brian Santana MD Work Phone: [facility] 06-04-2021 19:43-0400 SaO2% (BldA) [Mass fraction] 92 % Brian Santana MD Work Phone: [facility] 06-04-2021 19:43-0400 Systolic blood pressure 106 mm[Hg] Brian Santana MD Work Phone: [facility] 06-04-2021 16:26-0400 Body mass index (BMI) [Ratio] 36.22 kg/m2 Brian Santana MD Work Phone: [facility] 06-04-2021 16:26-0400 Body temperature 98.4 [degF] Brian Santana MD Work Phone: [facility] 06-04-2021 16:26-0400 Body weight 95.71 kg Brian Santana MD Work Phone: [facility] 05-20-2021 18:43-0400 Diastolic blood pressure 51 mm[Hg] Cas Dowell MD Work Phone: [facility] 05-20-2021 18:43-0400 Heart rate 53 /min Cas Dowell MD Work Phone: [facility] 05-20-2021 18:43-0400 Respiratory rate 16 /min Cas Dowell MD Work Phone: [facility] 05-20-2021 18:43-0400 SaO2% (BldA) [Mass fraction] 96 % Cas Dowell MD Work Phone: [facility] 05-20-2021 18:43-0400 Systolic blood pressure 112 mm[Hg] Cas Dowell MD Work Phone: [facility] 05-20-2021 12:55-0400 Body height 162.6 cm Cas Dowell MD Work Phone: [facility] 05-20-2021 12:55-0400 Body mass index (BMI) [Ratio] 36.22 kg/m2 Cas Dowell MD Work Phone: [facility] 05-20-2021 12:55-0400 Body weight 95.71 kg Cas Dowell MD Work Phone: [facility] 04-16-2021 19:39-0500 Body temperature 97.39 [degF] Mike Stevenson MD [facility] 04-16-2021 19:39-0500 Diastolic blood pressure 89 mm[Hg] Mike Stevenson MD [facility] 04-16-2021 19:39-0500 Heart rate 55 /min Mike Stevenson MD [facility] 04-16-2021 19:39-0500 Respiratory rate 15 /min Mike Stevenson MD [facility] 04-16-2021 19:39-0500 SaO2% (BldA) [Mass fraction] 98 % Mike Stevenson MD [facility] 04-16-2021 19:39-0500 Systolic blood pressure 131 mm[Hg] Mike Stevenson MD [facility] 11-01-2020 17:24-0400 SaO2% (BldA) [Mass fraction] 94 % Araseli Barrett MD Work Phone: [facility] Work Phone: 11-01-2020 16:20-0400 Diastolic blood pressure 73 mm[Hg] Araseli Barrett MD Work Phone: [facility] Work Phone: 11-01-2020 16:20-0400 Systolic blood pressure 142 mm[Hg] Araseli Barrett MD Work Phone: [facility] Work Phone: 11-01-2020 15:48-0400 Body temperature 101.61 [degF] Araseli Barrett MD Work Phone: [facility] Work Phone: 11-01-2020 13:32-0400 Body mass index (BMI) [Ratio] 37.76 kg/m2 Araseli Barrett MD Work Phone: [facility] Work Phone: 11-01-2020 13:32-0400 Body weight 99.79 kg Araseli Barrett MD Work Phone: [facility] Work Phone: 11-01-2020 13:32-0400 Heart rate 91 /min Araseli Barrett MD Work Phone: [facility] Work Phone: 11-01-2020 13:32-0400 Respiratory rate 22 /min Araseli Barrett MD Work Phone: [facility] Work Phone: 06-13-2020 05:10-0400 Diastolic blood pressure 73 mm[Hg] Kody Cm MD Work Phone: [facility] Work Phone: 06-13-2020 05:10-0400 Systolic blood pressure 131 mm[Hg] Kody Cm MD Work Phone: [facility] Work Phone: 06-13-2020 05:09-0400 Body temperature 96.8 [degF] Kody mC MD Work Phone: [facility] Work Phone: 06-13-2020 05:09-0400 Heart rate 74 /min Kody Cm MD Work Phone: [facility] Work Phone: 06-13-2020 05:09-0400 Respiratory rate 12 /min Kody Cm MD Work Phone: [facility] Work Phone: 06-13-2020 05:09-0400 SaO2% (BldA) [Mass fraction] 97 % Kody Cm MD Work Phone: [facility] Work Phone: Encounters Encounter Date Encounter Type Care Provider Facility Start: 10-15-2025 ambulatory Selma X Orzech Facilit y:[facility] Start: 10-28-2024 End: 10-28-2024 Office outpatient visit 25 minutes Terri Han MD Work Phone: [facility] - E[facility] Comment on above: Chronic sinusitis (P rimary Dx); Vocal cord dysfunction; Geographic tongue; Hypertrophy of both inferior nasal turbinates; Tympanosclerosis, bilateral; Severe persistent asthma without complication ([facility]) Start: 10-28-2024 End: 10-28-2024 ambulatory TERRI Sosa GUILLE [facility] Start: 10-09-2024 End: 10-09-2024 ambulatory Selma Choe Facility:[facility] Start: 10-09-2024 End: 10-09-2024 Patient encounter procedure Selma Choe [facility] Start: 09-30-2024 End: 09-30-2024 Clinisync Result Encounter [...] post hysterectomy Start: 09-30-2024 End: 09-30-2024 ambulatory FUENTES AMARAL Facility:[facility] Start: 09-29-2024 End: 09-29-2024 Clinisync Result Encounter Cas Dowell MD Work Phone: [facility] External Department Unsolicited Start: 09-29-2024 End: 09-29-2024 Clinisync Result Encounter Cas Dowell MD Work Phone: [facility] External Department Unsolicited Start: 09-26-2024 ambulatory [facility] Start: 09-25-2024 End: 09-25-2024 Office outpatient visit 25 minutes Cas Dowell MD Work Phone: [facility] Comment on above: Chronic rhinosinusit is (Primary Dx); Right wrist pain; Right forearm pain Start: 09-25-2024 End: 09-25-2024 ambulatory CAS DOWELL Not Available Start: 09-25-2024 End: 09-25-2024 Bamboo flowsheet Cas Dowell MD Work Phone: [facility] Start: 09-25-2024 End: 09-25-2024 Bamboo flowsheet Cas Dowell MD Work Phone: [facility] Start: 09-15-2024 End: 09-15-2024 Refill Marni Flowers RIB BUILDER-ASSISTANT PLANT CONTROLLER [facility] Comment on above: Migraine without aur a and without status migrainosus, not intractable Start: 09-08-2024 End: 09-08-2024 ambulatory Cas Dowell MD Work Phone: [facility] Work Phone: Start: 09-08-2024 End: 09-08-2024 Patient encounter procedure Oliva Aruna Becerra RIB BUILDER [facility] Work Phone: Start: 08-27-2024 ambulatory ABIEL MATTHEW [facility] Start: 08-22-2024 End: 08-24-2024 ambulatory MACRINA WADSWORTH [facility] Start: 08-22-2024 End: 08-24-2024 Subsequent hospital visit by physician [facility] Echo 1 [facility] Comment on above: Edema, unspecified t ype; Palpitations with regular cardiac rhythm Start: 08-21-2024 ambulatory STEPHON CRONIN [facility] Start: 08-12-2024 End: 08-12-2024 ambulatory MACRINA WADSWORTH [facility] Start: 08-11-2024 End: 08-11-2024 Bamboo flowsheet Csa Dowell MD Work Phone: [facility] Start: 08-11-2024 End: 08-11-2024 Bamboo flowsheet Cas Dowell MD Work Phone: [facility] Start: 08-11-2024 End: 08-11-2024 Clinisync Result Encounter Cas Dowell MD Work Phone: [facility] External Department Unsolicited Start: 08-11-2024 End: 08-11-2024 [...] Start: 08-11-2024 End: 08-11-2024 Refill Marni Flowers APRN-ASSISTANT PLANT CONTROLLER Work Phone: [facility] Neurology, A Department of [facility] Comment on above: Migraine without aur a and without status migrainosus, not intractable Start: 07-09-2024 ambulatory [facility] Start: 07-08-2024 End: 07-08-2024 Bamboo flowsheet [...] Office outpatient visit 15 minutes Marni Flowers RIB BUILDER-ASSISTANT PLANT CONTROLLER Work Phone: [facility] Neurology, A Department of [facility] Comment on above: 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 (Primary Dx); Migraine without aura and without status migrainosus, not intractable; Word finding difficulty; Trapezius muscle spasm; Memory difficulties; Hypersomnia with sleep apnea; 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; Cervicalgia; Brain fog Start: 07-01-2024 End: 07-01-2024 ambulatory MARNI FLOWERS [facility] Start: 05-18-2024 End: 10-07-2024 Telephone encounter Cas Dowell MD Work Phone: [facility] Comment on above: Med Refill Start: 05-13-2024 ambulatory [facility] Start: 05-08-2024 End: 05-08-2024 ambulatory Phillip Thomas Facility:[facility] Start: 05-01-2024 End: 05-07-2024 Clinisync Result Encounter Generic External Data Provider [facility] External Department Unsolicited Start: 05-01-2024 End: 05-07-2024 Clinisync Result Encounter Generic External Data Provider [facility] External Department Unsolicited Start: 05-01-2024 End: 05-01-2024 Refill Akila Yao MD Work Phone: [facility] Comment on above: Hypothyroidism due t o Cesar's thyroiditis Start: 04-18-2024 End: 05-02-2024 Clinisync Result Encounter Generic External Data Provider [facility] External Department Unsolicited Start: 04-18-2024 End: 05-02-2024 Clinisync Result Encounter Generic External Data Provider [facility] External Department Unsolicited Start: 04-15-2024 ambulatory [facility] Start: 03-30-2024 End: 03-31-2024 Refill Akila Yao MD [facility]: [facility] Comment on above: [...] [facility] External Department Unsolicited Start: 02-18-2024 ambulatory [facility] Start: 02-11-2024 End: 02-11-2024 Bamboo flowsheet [...] insulin (CMS/HCC) (Primary Dx); Autonomic dysfunction; Chronic [id number] syndrome; Moderate persistent asthma without complication (CMS/HCC); Chronic allergic rhinitis due to pollen; Edema of both legs; MDD (major depressive disorder), recurrent episode, mild (HCC) (CMS/HCC); Class 2 severe obesity due to excess calories with serious comorbidity and body mass index (BMI) of 37.0 to 37.9 in adult (CMS/HCC); Gastroesophageal reflux disease without esophagitis Start: 02-05-2024 End: 02-05-2024 ambulatory AKILA Dung YAO [facility] Start: 01-23-2024 ambulatory [facility] Start: 01-18-2024 ambulatory [facility] Start: 01-07-2024 ambulatory [facility] Start: 01-02-2024 End: 01-02-2024 Telephone encounter Marni KOWALSKI Work Phone: [facility] Start: 01-02-2024 End: 01-02-2024 Office outpatient visit 25 minutes Marni KOWALSKI Work Phone: [facility] Comment on above: Migraine without aur a and without status migrainosus, not intractable (Primary Dx); 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; 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; Cervicalgia; Hypersomnia with sleep apnea; Memory difficulties; KATELIN (obstructive sleep apnea); Trapezius muscle spasm; Word finding difficulty Start: 01-02-2024 End: 01-02-2024 ambulatory [facility] Start: 01-01-2024 End: 01-01-2024 ambulatory Phillip Guerra [facility] Facility:[facility] Start: 12-27-2023 End: 12-27-2023 ambulatory IVORY [facility] Start: 12-27-2023 End: 12-27-2023 Subsequent hospital visit by physician Cas Dowell MD Work Phone: [facility] Start: 12-27-2023 End: 12-27-2023 Clinisync Result Encounter Generic External Data Provider [facility] External Department Unsolicited Start: 12-27-2023 End: 12-27-2023 Clinisync Result Encounter Generic External Data Provider [facility] External Department Unsolicited Start: 12-19-2023 ambulatory ABIEL VIPUL [facility] Start: 12-19-2023 End: 12-19-2023 ambulatory NABOR [facility] Start: 12-19-2023 End: 12-19-2023 Subsequent hospital visit by physician [facility] Pulmonary Function Room [facility] PFT Comment on above: Moderate asthma with out complication, unspecified whether persistent Start: 12-06-2023 End: 12-06-2023 Refill Marni Flowers RIB BUILDER-ASSISTANT PLANT CONTROLLER Work Phone: [facility] Start: 11-30-2023 End: 11-30-2023 ambulatory Phillip Melendezer Facility:[facility] Start: 11-26-2023 End: 11-26-2023 Clinisync Result [...] Start: 11-22-2023 End: 11-22-2023 ambulatory AKILA YAO [facility] Start: 11-20-2023 End: 11-20-2023 [...] RUBENS TIM Not Available Start: 11-19-2023 ambulatory [facility] Start: 11-07-2023 End: 11-07-2023 Bamboo flowshansa [...] Not Available Start: 11-06-2023 ambulatory STEPHON CRONIN [facility] Start: 10-30-2023 End: 10-31-2023 Refill Marni Flowers APRN-ASSISTANT PLANT CONTROLLER Work Phone: [facility] Start: 10-23-2023 End: 10-23-2023 Orders Only Cas Dowell MD Work Phone: [facility] Start: 10-15-2023 ambulatory [facility] Start: 10-10-2023 End: 10-10-2023 Bamboo flowsheet Cas Dowell MD Work Phone: [facility] Start: 10-10-2023 End: 10-10-2023 Bamboo flowsheet Cas Dowell MD Work Phone: [facility] Start: 10-10-2023 End: 10-10-2023 ambulatory MACRINA WADSWORTH [facility] Start: 10-10-2023 End: 10-10-2023 Office outpatient visit 25 minutes Cas Dowell MD Work Phone: [facility] Comment on above: Type 2 diabetes johanna itus with hyperglycemia, without long-term current use of insulin (CMS/HCC) (Primary Dx); Chronic [id number] syndrome; Moderate persistent asthma without complication (CMS/HCC); Chronic allergic rhinitis due to pollen; Edema of both legs Start: 10-10-2023 End: 10-10-2023 ambulatory CAS DOWELL Not Available Start: 10-05-2023 ambulatory ABIEL MATTHEW [facility] Start: 10-02-2023 End: 10-02-2023 Patient encounter procedure Selma Choe [facility] Start: 10-01-2023 End: 10-01-2023 Clinisync Result [...] thyroiditis Start: 09-08-2023 End: 09-10-2023 Refill Terri Han MD Work Phone: [facility] Comment on above: Chronic sinusitis Start: 08-07-2023 End: 08-07-2023 Refill Marni Flowers RIB BUILDER-ASSISTANT PLANT CONTROLLER Work Phone: [facility] Start: 07-24-2023 End: 07-24-2023 Refill Marni Flowers RIB BUILDER-ASSISTANT PLANT CONTROLLER Work Phone: [facility] Start: 07-05-2023 End: 07-05-2023 Office outpatient visit 25 minutes Marni Lionel RIB BUILDER-ASSISTANT PLANT CONTROLLER Work Phone: [facility] Comment on above: Migraine without aur a and without status migrainosus, not intractable (Primary Dx); 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; Word finding difficulty; Autonomic dysfunction; Cervicalgia Start: 07-05-2023 End: 07-05-2023 ambulatory [facility] Start: 05-08-2023 End: 05-08-2023 Office outpatient visit 15 minutes Sarah Best RIB BUILDER-ASSISTANT PLANT CONTROLLER Work Phone: [facility] Comment on above: 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) Start: 05-08-2023 End: 05-08-2023 ambulatory SARAH BEST [facility] Start: 03-12-2023 Orders Only Cas Horner Work Phone: [facility] Comment on above: Moderate persistent asthma without complication (CMS/HCC) (Primary Dx) Start: 03-04-2023 Orders Only Marni BUSTOS RN-ASSISTANT PLANT CONTROLLER Work Phone: [facility] Start: 02-04-2023 Refill Marni BUSTOS RN-ASSISTANT PLANT CONTROLLER [facility] Start: 10-02-2022 End: 10-02-2022 Office outpatient visit 15 minutes Fuentes Amaral MD Work Phone: Hematology/Oncology Comment on above: Qualitative platelet disorder (HCC) (Primary Dx); Bleeding disorder (HCC); Coagulopathy (HCC) Start: 09-05-2022 End: 09-05-2022 Patient encounter procedure LORAINE BURNHAM [facility] Start: 06-15-2022 End: 06-16-[address] [...] patient Bhargavi Ramesh PA-C Work Phone: [facility] Start: 04-17-2022 End: 04-18-2022 [facility] Fuentes Amaral MD Work Phone: Hematology/Oncology [...] procedure LORAINE BURNHAM [facility] Start: 02-27-2022 Patient Update Tesfaye Whitman [facility] Comment on above: Patient [...] by physician Cas Dowell MD Work Phone: [facility] Start: 02-16-2022 Telephone encounter Manda León RN Hematology/Oncology Comment on above: Orders Start: 02-15-2022 End: 03-15-2022 ambulatory [facility] Facility:[facility] Start: 02-13-2022 End: 02-13-2022 Patient encounter procedure Meena Grissom MD Work Phone: Neurology Comment on above: No-show for appointm ent (Primary Dx) Start: 02-13-2022 End: 02-13-2022 Telemedicine consultation with patient Meena Grissom MD Work Phone: [facility] Start: 02-10-2022 End: 02-10-2022 Visit (SP) Office Fuentes Amaral MD Work Phone: Hematology/Oncology Comment on above: Qualitative platelet disorder (HCC) (Primary Dx); Bleeding disorder (HCC) Start: 02-01-2022 Telephone encounter [facility] Work Phone: Neurology Comment on above: Appointment (Downloa d Pap Therapy Follow Up-) Start: 01-23-2022 End: 01-23-2022 Patient encounter procedure Marcell WALTERS [facility] Start: 01-16-2022 End: 01-16-2022 ambulatory Bhargavi Ramesh PA-C Work Phone: Neurology Comment on above: Migraine without aur a and without status migrainosus, not intractable (Primary Dx) Start: 01-16-2022 End: 01-16-2022 Telemedicine consultation with patient Bhargavi Ramesh PA-C Work Phone: [facility] Start: 12-24-2021 End: 12-25-[address] BELÉN ANDRADE Facility:[facility] Start: 2021 End: 2021 Patient encounter procedure LORAINE BURNHAM [facility] Start: 12-20-2021 Telephone encounter Dayanna olvera [facility] Work Phone: [facility] Comment on above: Results Start: 12-17-2021 Encounter for genera l adult medical examination without abnormal findings DR CAS DOWELL 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) KATELIN on CPAP [...] patient Meena Grissom MD Work Phone: [facility] Start: 11-15-2021 Telephone encounter [facility] Work Phone: Neurology Comment on above: Appointment (Downloa d Pap Therapy Follow UP) Start: 11-14-2021 End: 11-14-[address] BELÉN ANDRADE Facility: Start: 11-10-2021 End: 11-11-2021 [facility] Fuentes Amaral MD Work Phone: Hematology/Oncology [...] with patient Henny Rushing MD Work Phone: [facility] Start: 10-20-2021 End: 10-20-2021 ambulatory Micheal Perez MD Work Phone: Cardiology Comment on above: Palpitations (Primar y Dx); Symptomatic bradycardia; Orthostatic lightheadedness; Diffuse pain; Blood pressure instability; Decreased activity tolerance; Orthostatic intolerance; Moderate persistent asthma without complication; Physical deconditioning Start: 10-20-2021 End: 10-20-2021 Telemedicine consultation with patient Micheal Perez MD Work Phone: [facility] Start: 10-19-2021 End: 10-19-2021 ambulatory Bhargavi Ramesh PA-C Work Phone: Neurology Comment on above: Chronic migraine wit hout aura, intractable, without status migrainosus (Primary Dx) Start: 10-19-2021 End: 10-19-2021 Telemedicine consultation with patient Bhargavi Gadiel HEREDIA Work Phone: [facility] Start: 10-19-2021 End: 10-20-[address] HUSAM KIM Facility: Start: 10-14-2021 End: 10-14-2021 ambulatory Judith Valdes PSYD Work Phone: [facility] Comment on above: Depression, unspecif ied depression type (Primary Dx); Anxiety; Abnormal involuntary movement Start: 10-14-2021 End: 10-14-2021 Telemedicine consultation with patient Judith Valdes PSYD Work Phone: [facility] Start: 10-12-2021 End: 10-12-2021 ambulatory Ruth Villaseñor MD Work Phone: Rheumatology Comment on above: Malaise and fatigue (Primary Dx); Lymphadenopathy Start: 10-12-2021 End: 10-12-2021 Telemedicine consultation with patient Ruth Villaseñor MD Work Phone: [facility] Start: 09-30-2021 ambulatory Landen Mahmood APR, N.CNP Work Phone: Pulmonary Medicine Comment on above: Breast testing Start: 09-30-2021 End: 09-30-2021 Subsequent hospital visit by physician Xr Chest Main A21 Radiology Comment on above: History of COVID-19 [Z86.16] Start: 09-27-2021 End: 09-27-2021 ambulatory Puluna Rico Work Phone: Pulmonary Lab Comment on above: Spirometry Start: 09-27-2021 End: 09-27-2021 Patient encounter procedure [facility] [place] Work Phone: [facility] Start: 09-23-2021 ambulatory Landen Mahmood APR, N.CNP [...] Work Phone: Pulmonary Medicine Comment on above: 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 Start: 09-16-2021 End: 09-16-2021 ambulatory Judith Valdes PSYD Work Phone: [facility] Comment on above: Depression, unspecif ied depression type (Primary Dx); Anxiety; Abnormal involuntary movement Start: 09-16-2021 End: 09-16-2021 Telemedicine consultation with patient Judith Gutierrezjanet HILLS Work Phone: [facility] Start: 09-05-2021 End: 09-05-2021 Emergency department patient visit Christine Abraham DO Work Phone: [facility] Comment on above: Allergic reaction, i nitial encounter (Primary Dx) Start: 08-30-2021 End: 08-30-2021 [facility] Ayaka Bright MD Work Phone: [facility] Comment on above: Long COVID (Primary Dx); Diffuse pain; Decreased activity tolerance; PTSD (post-traumatic stress disorder) CT scan results sent Start: 08-23-2021 Telephone encounter Shelbie Umaña PA-C Work Phone: General Surgery Comment on above: Results - Ct Start: 08-23-2021 End: 08-23-2021 ambulatory Peter Knight ASSISTANT PLANT CONTROLLER Work Phone: Neurology Comment on above: Diffuse pain (Primar y Dx); Decreased activity tolerance; Physical deconditioning; Orthostatic intolerance Start: 08-23-2021 End: 08-23-2021 Telemedicine consultation with patient Peter Knight APRN.ASSISTANT PLANT CONTROLLER Work Phone: [facility] Start: 08-19-2021 End: 08-19-2021 Subsequent hospital visit by physician Transportation [address] Radiology Comment on above: Chronic RLQ pain [R1 0.31, G89.29] Start: 08-18-2021 ambulatory Mike Zayas MD Work Phone: Kidney Medicine [facility] Start: 08-18-2021 Patient encounter procedure Mike Zayas MD Work Phone: [facility] Start: 08-17-2021 ambulatory [facility] Facility: [facility] Start: 08-17-2021 End: 08-17-2021 Subsequent hospital visit by physician [facility] Echocardiology Testing Comment on above: Symptomatic bradycar aziza [R00.1] Start: 08-16-2021 Orders Only Berlin Avila MD Work Phone: Radiology Comment on above: Chronic RLQ pain (Pr imary Dx) Start: 08-15-2021 Telephone encounter Jenni cassidy RN Work Phone: [facility] Home Delivery Comment on above: Insurance Authorizat ion (Emgality 120MG/ML syringes (migraine)) Start: 08-15-2021 End: 08-15-2021 Patient encounter procedure Berlin Avila MD Work Phone: General Surgery Comment on above: Chronic RLQ pain (Pr imary Dx); Diastasis recti Start: 08-12-2021 End: 08-12-2021 ambulatory Daniela Stewart PT Work Phone: [facility] Comment on above: Intractable chronic migraine without aura and without status migrainosus; Abnormal involuntary movement Start: 08-12-2021 End: 08-12-2021 Patient encounter procedure Minilab Operator Work Phone: Kidney Medicine [facility] Comment on above: White coat syndrome with hypertension (Primary Dx) Start: 08-05-2021 End: 08-05-2021 ambulatory Bhargavi Ramesh PA-C Work Phone: Neurology Comment on above: Chronic migraine wit hout aura, intractable, without status migrainosus (Primary Dx) Start: 08-05-2021 End: 08-05-2021 Telemedicine consultation with patient Bhargavi Gadiel HEREDIA Work Phone: [facility] Start: 08-03-2021 End: 08-03-[address] RUBENS TIM . Facility: Start: 07-29-2021 End: 07-29-2021 ambulatory Lisethjanet Gutierrezjanet HILLS Work Phone: [facility] Comment on above: Depression, unspecif ied depression type (Primary Dx); Anxiety; Intractable chronic migraine without aura and without status migrainosus; Abnormal involuntary movement Start: 07-29-2021 End: 07-29-2021 Telemedicine consultation with patient Judith Gutierrezjanet HILLS Work Phone: [facility] Start: 07-25-2021 End: 07-25-2021 Patient [...] 07-18-2021 End: 07-18-2021 [facility] Work Phone: [facility] Medicine Comment on above: Screening for endocr ine disorder Start: 07-15-2021 End: 07-15-2021 [facility] Work Phone: [facility] Comment on above: Bleeding disorder (H CC) (Primary Dx); Coagulopathy (HCC); Qualitative platelet disorder (HCC) Start: 07-14-2021 End: 07-14-2021 Patient encounter procedure Aldo Ann MD Work Phone: Otolaryngology Comment on above: Allergy, initial enc ounter (Primary Dx); Headaches Start: 07-06-2021 End: 07-06-2021 Patient encounter procedure Tracee Mcintyre MD Work Phone: [facility] Comment on above: Intractable chronic migraine without [...] End: 06-27-2021 Patient encounter procedure Peter Knight APRN.ASSISTANT [employer]OLLER Work Phone: Neurology Comment on above: Worsening headaches (Primary Dx); Maxillary sinus cyst; Muscle spasms of lower extremity, unspecified laterality; Akathisia; Blurred vision; Chorea Start: 06-24-2021 End: 06-25-[address] VIKASH BECKHAM . Facility: Start: 06-22-2021 ambulatory Peter Knight APRN.ASSISTANT PLANT CONTROLLER Work Phone: Neurology Comment on above: Legs Start: 06-20-2021 End: 06-21-2021 Emergency department patient visit Seantd Moses Work Phone: [facility] Comment on above: Spasm of muscle (Hannah bhumika Dx); Acute nonspecific chest pain with low risk of coronary artery disease Start: 06-16-2021 Telephone encounter Yan Bass MD Work Phone: Hematology/Oncology Comment on above: Results Start: 06-16-2021 ambulatory PETER KNIGHT Facility :[facility] Start: 06-14-2021 Telephone encounter [...] encounter procedure Autonomic 2 Neur Main [facility] Start: 06-13-2021 ambulatory Peter Knight APRN.ASSI[employer]ANT [employer]ER Work Phone: Neurology Comment on above: Blood [...] visit Brian Santana MD Work Phone: [facility] Comment on above: Urticaria (Primary D x); Moderate persistent asthma with exacerbation Start: 05-31-2021 Telephone encounter Peter bermeo APRN.CNP Work Phone: Neurology Comment on above: Received Outside Med ical Records ([facility]) Start: 05-20-2021 End: 05-20-2021 Emergency department patient visit Cas Dowell MD Work Phone: [facility] Comment on above: Chest pain, unspecif ied type (Primary Dx); Abdominal pain, acute, right lower quadrant Start: 04-16-2021 End: 04-16-2021 Emergency department patient visit Mike Stevenson MD [facility] Comment on above: Intractable nausea a nd vomiting (Primary Dx); Hydrosalpinx; Left ovarian cyst Start: 03-07-2021 End: 03-08-2021 ambulatory CAS DOWELL [facility] Start: 03-06-2021 End: 03-07-2021 ambulatory CAS DOWELL [facility] Start: 11-01-2020 End: 11-01-2020 Emergency department patient visit Araseli Barrett MD Work Phone: [facility] Comment on above: COVID-19 (Primary Dx ) Start: 06-13-2020 End: 06-13-2020 Emergency department patient visit Kody Cm MD Work Phone: [facility] Comment on above: Strain of lumbar [...] 2d w/wom-mode compl spec&colr d Macrina Wadsworth RIB BUILDER - ASSISTANT PLANT CONTROLLER Work Phone: Start: 08-11-2024 ALL CBC WITH [...] Phone: Start: 12-27-2023 Antibody rubella Ivory Ordaz RIB BUILDER - ASSISTANT PLANT CONTROLLER Work Phone: Start: 12-27-2023 MHPT RUBELLA AB, IGG Generic External Data Provider Start: 12-19-2023 Brncdilat rspse spmtry pre&post-brncdilat admn Nabor Yancey RIB BUILDER - ASSISTANT PLANT CONTROLLER Work Phone: Start: 11-26-2023 ALL THYROXINE (T4) FREE Generic External Data Provider Start: 11-20-2023 IGP,APTIMA HPV,AGE GDLN Rubens Glenroy DO Work Phone: Start: 10-01-2023 [facility] CBC W AUTO DIFF BLD Generic External Data Provider Start: 08-31-2023 Mammography Generic Provider Start: 05-08-2023 Follow-up visit Follow-up SARAH BEST Start: 01-31-2023 Esophagogastroduodenoscopy Selma Choe Start: 01-04-2023 Adult depression screening assessment Marni Flowers APRN-ASSISTANT PLANT CONTROLLER Work Phone: Start: 01-01-2023 Hemoglobin glycosylated a1c [...] Radiologic exam chest 2 views Landen Mahmood RIB BUILDER.ASSISTANT PLANT CONTROLLER Work Phone: Start: 09-27-2021 End: 09-27-2021 Co diffusing capacity Landen Mahmood APRN.ASSISTANT PLANT CONTROLLER Work Phone: Start: 09-14-2021 Adult depression screening assessment Judith Valdes PSYD Work Phone: Start: 08-19-2021 Us pelvic nonobstetric image dcmtn limited/f/u Berlin Avila MD Work Phone: Start: 08-17-2021 Echo tthrc r-t 2d w/wom-mode compl spec&colr d Christy Santos MD Work Phone: Start: 08-17-2021 LVEF ECHO Sai Perez MD Work Phone: Start: 07-29-2021 Adult depression screening assessment [facility] Work Phone: Start: 07-18-2021 Adrenocorticotropic hormone acth [...] routine ecg w/least 12 lds w/i&r Sean AndCooliris DO Work Phone: Start: 06-20-2021 Adult depression screening assessment Peter Knight RIB BUILDER.ASSISTANT PLANT CONTROLLER Work Phone: Start: 06-04-2021 RESPIRATORY CARE EVALUATION ONLY Brian Santana MD Work Phone: Start: 05-20-2021 Assay of troponin quantitative Shanna Rivas RIB BUILDER - ASSISTANT PLANT CONTROLLER Work Phone: Start: 05-20-2021 Ct abdomen & pelvis w/o contrast material Shanna Rivas RIB BUILDER - ASSISTANT PLANT CONTROLLER Work Phone: Start: 05-20-2021 Drug screen class list a Shanna Lee y RIB BUILDER - ASSISTANT PLANT CONTROLLER Work Phone: Start: 05-20-2021 Urinalysis microscopic only Shanna verduzco RIB BUILDER - ASSISTANT PLANT CONTROLLER Work Phone: Start: 05-20-2021 Urnls dip stick/tablet rgnt auto w/o microscopy Shanna Rivas RIB BUILDER - ASSISTANT PLANT CONTROLLER Work Phone: Start: 05-20-2021 Radiologic exam chest single view Adryan Rivas RIB BUILDER - ASSISTANT PLANT CONTROLLER Work Phone: Start: 05-20-2021 Assay of lactate Shanna Rivas RIB BUILDER - ASSISTANT PLANT CONTROLLER Work Phone: Start: 05-20-2021 BASIC METABOLIC PANEL W/ REFLEX TO MG FOR LOW K Shanna Rivas RIB BUILDER - ASSISTANT PLANT CONTROLLER Work Phone: Start: 05-20-2021 C-reactive protein Shanna Rivas RIB BUILDER - ASSISTANT PLANT CONTROLLER Work Phone: Start: 05-20-2021 Ecg routine ecg w/least 12 lds w/i&r Araseli Barrett MD Work Phone: Start: 05-19-2021 Adult depression screening assessment Peter Guzzo RIB BUILDER.ASSISTANT PLANT CONTROLLER Work Phone: Start: 04-16-2021 Ct abdomen & pelvis w/o contrast material Shanna Rivas RIB BUILDER - ASSISTANT PLANT CONTROLLER Work Phone: Start: 04-16-2021 Radiologic exam chest single view Adryan Rivas RIB BUILDER - ASSISTANT PLANT CONTROLLER Work Phone: Start: 04-16-2021 Ecg routine ecg w/least 12 lds w/i&r Shanna Bishop Evelyn RIB BUILDER - ASSISTANT PLANT CONTROLLER Work Phone: Start: 04-16-2021 Urinalysis microscopic only Shanna verduzco RIB BUILDER - ASSISTANT PLANT CONTROLLER Work Phone: Start: 04-16-2021 Urine test visual color cmprsn meths Shanna Rivas RIB BUILDER - ASSISTANT PLANT CONTROLLER Work Phone: Start: 04-16-2021 Assay of lipase Shanna Rivas RIB BUILDER - ASSISTANT PLANT CONTROLLER Work Phone: Start: 04-16-2021 BASIC METABOLIC PANEL W/ REFLEX TO MG FOR LOW K Shanna Bishop Evelyn RIB BUILDER - ASSISTANT PLANT CONTROLLER Work Phone: Start: 04-16-2021 Hepatic function panel Shanna Bishop Evelyn RIB BUILDER - ASSISTANT PLANT CONTROLLER Work Phone: Start: 02-10-2021 H/O: hysterectomy History [...] H/O: hysterectomy Status post hysterectomy Margot Limon RIB BUILDER.ASSISTANT PLANT CONTROLLER Work Phone: Insertion of cardiac monitoring implant using fluoroscopic guidance Selma Orzech Laparoscopic lysis of adhesions Selma Orzech Ligation of fallopian tube J DELIA BURNHAM Nasal septoplasty LORAINE P ERRY Tympanostomy LORAINE BURNHAM Plan of Treatment Date Care Activity Detail Author Start: 12-17-2025 Glaucoma screening Diabetes: Retinopathy Screening [facility] Start: 10-28-2025 Adult BMI Screening [facility] Start: 10-28-2025 Tobacco Screening Tobacco Screening [facility] Start: 09-29-2025 End: 09-29-2025 Follow-up encounter 09/29/2025 9:30 AM EDT Visit (SP) Office Hematology/Oncology [address] [place] [address] [place] [address] Margot Limon APRN.[address] [place] [address] 1 year follow up Hematology/Oncology Comment on above: 1 year follow up Start: 09-29-2025 End: 09-29-2025 Patient encounter procedure 09/29/2025 9:15 AM EDT Office Visit [facility] [address] [place] [address] 1 year follow up [facility] Comment on above: 1 year follow up Start: 07-08-2025 End: 07-08-2025 Patient encounter procedure [facility] Start: 02-11-2025 End: 02-11-2025 Patient encounter procedure 02/11/2025 9:00 AM EST Office Visit [facility] [address] [place] [address] Cas Dowell MD [address] [place] [address] [facility] Start: 01-27-2025 End: 01-27-2025 Patient encounter procedure 01/27/2025 4:15 PM EST Office Visit [facility] [address] [place] [address], [address] [place] [phone] Terri Han MD [address] [facility] [address] [place] [address] [facility] Start: 01-05-2025 End: 01-05-2025 Clinical Support 01/05/2025 12:30 PM EST Clinical Support [facility] [address] [facility] [place] [phone] [place] Trivedi [facility] [address] [place] [address] [address] [place] [address] [facility] Start: 01-01-2025 Adult BMI Screening Adult BMI Screening [facility] Start: 01-01-2025 Tobacco Screening Tobacco Screening [facility] Start: 12-26-2024 End: 12-26-2024 Patient encounter procedure 12/26/2024 10:30 AM EST Office Visit [facility] Neurology, A Department of [facility] [address] [facility] [address] [place] [phone] Marni Flowers, RIB BUILDER-ASSISTANT PLANT CONTROLLER [address] [facility] [address] [place] [address] [facility] Neurology, A Department of [facility] Start: 12-01-2024 End: 12-01-2024 Patient encounter procedure [facility] Start: 11-27-2024 End: 11-27-2024 Patient encounter procedure 11/27/2024 10:00 AM EDT Office Visit [facility] [address] [place] [address] Rubens Tim, [address] [place] [address] [facility] Start: 11-24-2024 End: 11-24-2024 Patient encounter procedure [facility] Adult Endocrinology, A [facility] Start: 11-21-2024 Adult BMI Screening Adult BMI Screening [facility] Start: 11-21-2024 Tobacco Screening Tobacco Screening [facility] Start: 10-28-2024 End: 10-28-2025 CT Sinuses WO contrast CT sinuses without contrast Imaging Routine Chronic sinusitis Expected: 10/28/2024, Expires: 10/28/2025 [facility] Comment on above: Expected: 10/28/2024, Expires: Start: 10-06-[address] [facility] Start: 09-30-2024 End: 09-30-2024 CBC W Auto Differential panel - Blood COMPLETE BLOOD COUNT AND DIFFERENTIAL Lab Routine Qualitative platelet disorder (HCC) Expected: 09/30/2024 (Approximate), Expires: 09/30/2024 [facility] Work Phone: Comment on above: Expected: 09/30/2024 (Approximate), Expi res: 09/30/2024 Start: 09-30-2024 End: 09-30-2024 Comprehensive metabolic 2000 panel - Serum or Plasma COMPREHENSIVE METABOLIC PANEL Lab Routine Qualitative platelet disorder (HCC) Expected: 09/30/2024 (Approximate), Expires: 09/30/2024 [facility] Comment on above: Expected: 09/30/2024 (Approximate), Expi res: 09/30/2024 Start: 09-29-2024 End: 09-29-2024 Follow-up encounter 09/29/2024 9:45 AM EDT Visit (SP) Office Hematology/Oncology [address] [address] Fuentes Amaral MD [address] [place] [address] 1 year follow up Hematology/Oncology Comment on above: 1 year follow up Start: 09-29-2024 End: 09-29-2024 Patient encounter procedure 09/29/2024 9:30 AM EDT Office Visit [facility] [address] [place] [address] [place] [address] 1 year follow up [facility] Comment on above: 1 year follow up Start: 09-25-2024 End: 09-25-2024 Patient encounter procedure 09/25/2024 3:45 PM EDT Office Visit [facility] [address] [place] [phone] Cas Dowell MD [address] [place] [phone] Arrived [facility] Comment on above: Arrived Start: 09-25-2024 End: [...] Right forearm pain Expected: 09/25/2024, Expires: 09/25/[address] [facility] Comment on above: Expected: 09/25/2024, Expires: Start: 09-25-2024 End: 09-25-2025 XR Wrist - right 2 Views XR wrist 1 or 2 views right Imaging Routine Right wrist pain Expected: 09/25/2024, Expires: 09/25/[address] [facility] Work Phone: Comment on above: Expected: 09/25/2024, Expires: Start: 09-18-2024 End: 09-18-2024 Patient encounter procedure 09/18/2024 12:45 PM EDT Office Visit [facility] [place] [id number] Nabor Yancey, RIB BUILDER - ASSISTANT PLANT CONTROLLER [address] [place] [address] 3 month follow up; Asthma, KATELIN/Silvia; labs [facility] Comment on above: 3 month follow up; Asthma, KATELIN/Silvia; l abs Start: 09-05-2024 Influenza vaccination Flu vaccine (#1) Hong Dang [facility] Start: 08-30-2024 Screening for malignant neoplasm of breast Mammogram [facility] Start: 08-11-2024 End: 08-11-2025 CBC W Auto Differential panel - Blood CBC and differential Lab Routine Annual physical exam Expected: 08/11/2024 (Approximate), Expires: 08/11/[address] [facility] Comment on above: Expected: 08/11/2024 (Approximate), Expi res: 08/11/2025 Start: 08-11-2024 End: 08-11-2025 Comprehensive metabolic 2000 panel - Serum or Plasma Comprehensive metabolic panel Lab Routine Annual physical exam Expected: 08/11/2024 (Approximate), Expires: 08/11/[address] [facility] Comment on above: Expected: 08/11/2024 (Approximate), Expi res: 08/11/2025 Start: 08-11-2024 End: 08-11-2025 Hemoglobin A1c/Hemoglobin.total in Blood Hemoglobin A1c Lab Routine Annual physical exam Expected: 08/11/2024 (Approximate), Expires: 08/11/[address] [facility] Comment on above: Expected: 08/11/2024 (Approximate), Expi res: 08/11/2025 Start: 08-11-2024 End: 08-11-2025 Lipid 1996 panel - Serum or Plasma Lipid panel Lab Routine Annual physical exam Expected: 08/11/2024 (Approximate), Expires: 08/11/[address] [facility] Comment on above: Expected: 08/11/2024 (Approximate), Expi res: 08/11/2025 Start: 08-11-2024 End: 08-11-2025 Microalbumin/Creatinine panel in random Urine Microalbumin / creatinine, urine ratio Lab Routine Type 2 diabetes mellitus with hyperglycemia, without long-term current use of insulin (HCC) Expected: 08/11/2024 (Approximate), Expires: 08/11/[address] [facility] Work Phone: Comment on above: Expected: 08/11/2024 (Approximate), Expi res: 08/11/2025 Start: 08-11-2024 End: 08-11-2025 Thyrotropin [Units/volume] in Serum or Plasma TSH Lab Routine Annual physical exam Expected: 08/11/2024 (Approximate), Expires: 08/11/2025 [facility] Comment on above: Expected: 08/11/2024 (Approximate), Expi res: 08/11/2025 Start: 08-11-2024 End: 08-11-2025 Thyroxine (T4) free [Mass/volume] in Serum or Plasma T4, free Lab Routine Primary hypothyroidism Expected: 08/11/2024 (Approximate), Expires: 08/11/[address] [facility] Comment on above: Expected: 08/11/2024 (Approximate), Expi res: 08/11/2025 Start: 08-11-2024 End: 08-11-2024 Patient encounter procedure [facility] Comment on above: Arrived Start: 07-08-2024 End: 07-08-2024 Patient encounter procedure [facility] Comment on above: Arrived Start: 07-04-2024 Tobacco Screening Tobacco Screening [facility] Start: 07-01-2024 End: 07-01-2024 [facility] Start: 05-07-2024 Adult BMI Screening Adult BMI Screening [facility] Start: 05-07-2024 Tobacco Screening Tobacco Screening [facility] Start: 04-17-2024 End: 04-17-2024 Patient encounter procedure 04/17/2024 8:30 AM EDT Office Visit [facility] [address] [place] [address] David Mai MD [address] [address] 6 mth f/u [facility] Comment on above: 6 mth f/u Start: 04-12-2024 Urine screening for protein Diabetes: Urine Protein Screening [facility] Start: 02-27-2024 End: 02-27-2024 Patient encounter procedure 02/27/2024 8:15 AM EST [facility] [address] [place] [address] Cas Dowell MD [address] [place] [address] Arrived [facility] Comment on above: Arrived Start: 02-22-2024 Hemoglobin A1c measurement Diabetes: Hemoglobin A1C [facility] Start: 02-11-2024 End: 02-10-2025 Hemoglobin A1c/Hemoglobin.total in Blood Hemoglobin A1c Lab Routine Type 2 diabetes mellitus with hyperglycemia, without long-term current use of insulin ([facility]) Expected: 02/11/2024 (Approximate), Expires: 02/10/[address] [facility] Work Phone: Comment on above: Expected: 02/11/2024 (Approximate), Expi res: 02/10/2025 Start: 01-14-2024 End: 01-14-2024 Patient encounter procedure 01/14/2024 9:40 AM EST Office Visit [facility] [address] [place] [address] Christy Painting MD [address] [place] [address] [facility] Start: 01-09-2024 End: 01-09-2024 Patient encounter procedure 01/09/2024 8:45 AM EST Office Visit [facility] [address] [place] [phone] Cas Dowell MD [address] [place] [phone] [facility] Start: 01-05-2024 Adult BMI Screening Adult BMI Screening [facility] Start: 01-05-2024 Depression Screening Depression Screening [facility] Start: 01-05-2024 Tobacco Screening Tobacco Screening [facility] Start: 01-02-2024 End: 01-02-2024 Patient encounter procedure 01/02/2024 10:30 AM EST Office Visit [facility] [address] [place] [address] Marni Flowers APRN-ASSISTANT PLANT CONTROLLER [address] [place] [address] [facility] Start: 2023 [facility] Start: 12-19-2023 GFR test (Diabetes, CKD 3-4, OR last GFR 15-59) GFR test (Diabetes, CKD 3-4, OR last GFR 15-59) [facility] Start: 12-19-2023 Urine screening for protein Diabetes: Urine Protein Screening [facility] Start: 11-22-2023 End: 11-22-2023 Patient encounter procedure 11/22/2023 8:45 AM EDT Office Visit [facility] [address] [facility] [address] [place] [phone] Akila Yao MD [address] [facility] [address] [place] [address] [facility] Start: 11-20-2023 End: 11-19-2024 Cortisol free Cortisol, free Lab Routine PCOS (polycystic ovarian syndrome) Hormone disorder Expected: 11/20/2023, Expires: 11/19/2024 [facility] Comment on above: Expected: 11/20/2023, Expires: Start: 11-20-2023 End: 11-19-2024 DHEA DHEA Lab Routine PCOS (polycystic ovarian syndrome) Hormone disorder Expected: 11/20/2023, Expires: 11/19/2024 [facility] Comment on above: Expected: 11/20/2023, Expires: Start: 11-20-2023 End: 11-19-2024 DHEA-sulfate DHEA-sulfate Lab Routine PCOS (polycystic ovarian syndrome) Hormone disorder Expected: 11/20/2023 (Approximate), Expires: 11/19/2024 [facility] Comment on above: Expected: 11/20/2023 (Approximate), Expi res: 11/19/2024 Start: 11-20-2023 End: 11-19-2024 Estradiol Estradiol Lab Routine PCOS (polycystic ovarian syndrome) Hormone disorder Expected: 11/20/2023 (Approximate), Expires: 11/19/2024 [facility] Comment on above: Expected: 11/20/2023 (Approximate), Expi res: 11/19/2024 Start: 11-20-2023 End: 11-19-2024 Miscellaneous Lab Test Miscellaneous Lab Test Lab Routine PCOS (polycystic ovarian syndrome) Hormone disorder Expected: 11/20/2023 (Approximate), Expires: 11/19/2024 [facility] Comment on above: Expected: 11/20/2023 [...] Hormone disorder Expected: 11/20/2023 (Approximate), Expires: 11/19/2024 [facility] Comment on above: Expected: 11/20/2023 (Approximate), Expi res: 11/19/2024 Start: 11-20-2023 End: 11-20-2023 Patient encounter procedure [facility] Comment on above: Arrived Start: 11-19-2023 End: 11-19-2023 Patient encounter procedure 11/19/2023 8:45 AM EDT Office Visit [facility] [address] [place] [phone] Akila Yao MD 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 Expected: 11/07/2023 (Approximate), Expires: 05/07/2024 [facility] Comment on above: Expected: 11/07/2023 (Approximate), Expi res: 05/07/2024 Start: 11-07-2023 End: 11-07-2023 Patient encounter procedure [facility] Comment on above: Allergic reaction, subsequent encounter Start: 10-10-2023 End: 10-10-2023 Patient encounter procedure [facility] Comment on above: Arrived Start: 10-07-2023 COVID-19 Vaccine () COVID-19 Vaccine () [facility] Start: 10-07-2023 Covid-19 Vaccine () Covid-19 Vaccine () [facility] Start: 10-07-2023 Influenza vaccination [facility] Start: 10-03-2023 End: 10-03-2023 CBC W Auto Differential panel - Blood CBC + DIFF Lab Routine 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) Coagulopathy (HCC) Expected: 10/03/2023 (Approximate), Expires: 10/03/2023 [facility] Work Phone: Comment on above: Expected: 10/03/2023 (Approximate), Expi res: 10/03/2023 Start: 10-03-2023 End: 10-03-2023 Comprehensive metabolic 2000 panel - Serum or Plasma COMP METABOLIC PANEL Lab Routine 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) Coagulopathy (HCC) Expected: 10/03/2023 (Approximate), Expires: 10/03/2023 [facility] Work Phone: Comment on above: Expected: 10/03/2023 (Approximate), Expi res: 10/03/2023 Start: 09-26-2023 End: 09-26-2023 Patient encounter procedure 09/26/2023 9:15 AM EDT Office Visit [facility] [address] [place] [phone] Cas Dowell MD [address] [place] [address] Arrived [facility] Comment on above: Arrived Start: 09-06-2023 Influenza vaccination Flu vaccine (#1) [facility] Start: 07-10-2023 End: 07-10-2023 Patient encounter procedure 07/10/2023 9:00 AM EDT Office Visit [facility] [address] [place] [phone] Jodi Mazariegos PA [address] [place] [address] [facility] Start: 07-05-2023 End: 07-05-2023 Telemedicine consultation with patient 07/05/2023 3:30 PM EDT Telemedicine [facility] [address] [place] [address] Marni Flowers, RIB BUILDER-ASSISTANT PLANT [employer]OLLER [address] [place] [address] [facility] Start: 05-08-2023 End: 05-07-2024 US Thyroid gland Ultrasound thyroid Imaging Routine 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 [place] [address] [facility] Start: 04-09-2023 End: 04-09-2023 Patient encounter procedure 04/09/2023 8:45 AM EST Office Visit [facility] [address] [place] [phone] Cas Dowell MD [address] [place] [address] [facility] Start: 04-03-2023 Hemoglobin A1c measurement Diabetes: Hemoglobin A1C [facility] Start: 01-30-2023 GFR test (Diabetes, CKD 3-4, OR last GFR 15-59) GFR test (Diabetes, CKD 3-4, OR last GFR 15-59) [facility] Start: 01-09-2023 Hemoglobin A1c measurement A1C test (Diabetic or Prediabetic) [facility] Start: 10-17-2022 Adult depression screening assessment DEPRESSION SCREENING [facility] Start: 10-08-2022 Adult depression screening assessment DEPRESSION SCREENING [facility] Start: 10-06-2022 Covid-19 Vaccine ( season) Covid-19 Vaccine ( season) [facility] Start: 10-06-2022 Influenza vaccination [facility] Start: 10-01-2022 End: 04-03-2023 CBC W Auto Differential panel - Blood CBC + DIFF Lab Routine 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) Expected: 10/01/2022 (Approximate), Expires: 04/03/2023 [facility] Work Phone: Comment on above: Expected: 10/01/2022 (Approximate), Expi res: 04/03/2023 Start: 10-01-2022 End: 04-03-2023 Comprehensive metabolic 2000 panel - Serum or Plasma COMP METABOLIC PANEL Lab Routine 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) Expected: 10/01/2022 (Approximate), Expires: 04/03/2023 [facility] Work Phone: Comment on above: Expected: 10/01/2022 (Approximate), Expi res: 04/03/2023 Start: 09-14-2022 Adult depression screening assessment DEPRESSION SCREENING [facility] Start: 07-29-2022 Adult depression screening assessment DEPRESSION SCREENING [facility] Start: 06-29-2022 Adult depression screening assessment DEPRESSION SCREENING [facility] Start: 06-21-2022 End: 06-21-2022 Patient encounter procedure 06/21/2022 Office Visit Pulmonology Armando Balderrama DO [address] [place], [place] [phone] [facility] Start: 06-20-2022 Adult depression screening assessment DEPRESSION SCREENING [facility] Start: 05-25-2022 Depression Monitoring Depression Monitoring [facility] Start: 05-19-2022 Adult depression screening assessment DEPRESSION SCREENING [facility] Start: 04-16-2022 Creatinine measurement Creatinine monitoring [facility] Start: 04-16-2022 Potassium monitoring Potassium monitoring [facility] Start: 02-27-2022 End: 02-27-2022 Patient encounter procedure 02/27/2022 Office Visit Pulmonology Nabor Yancey, RIB BUILDER - ASSISTANT PLANT CONTROLLER [address] [phone] [facility] Start: 02-10-2022 End: 04-12-2022 PLATELET TRANSMISSION ELECTRON MICROSCOPIC STUDY PLATELET TRANSMISSION ELECTRON MICROSCOPIC STUDY Lab Routine 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) Expected: 02/10/2022, Expires: 04/12/2022 [facility] Work Phone: Comment on above: Expected: 02/10/2022, Expires: Start: 02-05-2022 DEPRESSION ASSESSMENT DEPRESSION ASSESSMENT [facility] Start: 2021 End: 2021 Patient encounter procedure 2021 Office Visit Pulmonology Armando Balderrama, DO [address] [place] [phone] [facility] Start: 11-16-2021 End: 01-16-2022 Ferritin [Mass/volume] in Serum or Plasma FERRITIN BLD Lab Routine RLS (restless legs syndrome) Expected: 11/16/2021, Expires: 01/16/2022 [facility] Work Phone: Comment on above: Expected: 11/16/2021, Expires: 2 Start: 11-16-2021 End: 01-16-2022 Iron and Iron binding capacity panel - Serum or Plasma IRON + TIBC Lab Routine RLS (restless legs syndrome) Expected: 11/16/2021, Expires: 01/16/2022 [facility] Work Phone: Comment on above: Expected: 11/16/2021, Expires: 2 Start: 11-01-2021 Creatinine measurement Creatinine monitoring [facility] Work Phone: Start: 11-01-2021 Potassium monitoring Potassium monitoring [facility] Work Phone: Start: 10-06-2021 Influenza vaccination [facility] Start: 09-28-2021 Glaucoma screening Diabetic retinal exam [facility] Start: 09-21-2021 End: 11-21-2021 Phosphate [Mass/volume] in Serum or Plasma [facility] Work Phone: Comment on above: Expected: 09/21/2021, [...] joint, multiple sites Expected: 09/19/2021, Expires: 11/19/2021 [facility] Work Phone: Comment on above: Expected: 09/19/2021, [...] joint, multiple sites Expected: 09/19/2021, Expires: 11/19/2021 [facility] Work Phone: Comment on above: Expected: 09/19/2021, Expires: 2 Start: 09-19-2021 End: 11-19-2021 CARDIOLIPIN IGM ABS CARDIOLIPIN IGM ABS Lab Routine History of COVID-19 Post-acute sequelae of COVID-19 (PASC) SOB (shortness of breath) Chronic cough Chest discomfort Palpitation CAVANAUGH (dyspnea on exertion) Dizziness Near syncope Night sweats Orthopnea Anxiety Myalgia Pain in joint, multiple sites Expected: 09/19/2021, Expires: 11/19/2021 [facility] Work Phone: Comment on above: Expected: 09/19/2021, Expires: 2 Start: 09-19-2021 End: 11-19-2021 CBC panel - Blood by Automated count CBC Lab Routine History of COVID-19 Post-acute sequelae of COVID-19 (PASC) SOB (shortness of breath) Chronic cough Chest discomfort Palpitation CAVANAUGH (dyspnea on exertion) Dizziness Near syncope Night sweats Orthopnea Anxiety Myalgia Pain in joint, multiple sites Expected: 09/19/2021, Expires: 11/19/2021 [facility] Work Phone: Comment on above: Expected: 09/19/2021, [...] joint, multiple sites Expected: 09/19/2021, Expires: 11/19/2021 [facility] Work Phone: Comment on above: Expected: 09/19/2021, [...] joint, multiple sites Expected: 09/19/2021, Expires: 11/19/2021 [facility] Work Phone: Comment on above: Expected: 09/19/2021, Expires: 2 Start: 09-19-2021 End: 11-19-2021 Erythrocyte sedimentation rate SED RATE WESTERGREN Lab Routine History of COVID-19 Post-acute sequelae of COVID-19 (PASC) SOB (shortness of breath) Chronic cough Chest discomfort Palpitation CAVANAUGH (dyspnea on exertion) Dizziness Near syncope Night sweats Orthopnea Anxiety Myalgia Pain in joint, multiple sites Expected: 09/19/2021, Expires: 11/19/2021 [facility] Work Phone: Comment on above: Expected: 09/19/2021, Expires: 2 Start: 09-19-2021 End: 11-19-2021 Fibrin D-dimer FEU [Mass/volume] in Platelet poor plasma D-DIMER Lab Routine History of COVID-19 Post-acute sequelae of COVID-19 (PASC) SOB (shortness of breath) Chronic cough Chest discomfort Palpitation CAVANAUGH (dyspnea on exertion) Dizziness Near syncope Night sweats Orthopnea Anxiety Myalgia Pain in joint, multiple sites Expected: 09/19/2021, Expires: 11/19/2021 [facility] Work Phone: Comment on above: Expected: 09/19/2021, [...] joint, multiple sites Expected: 09/19/2021, Expires: 11/19/2021 [facility] Work Phone: Comment on above: Expected: 09/19/2021, Expires: 2 Start: 09-19-2021 End: 11-19-2021 OMEGACHECK OMEGACHECK Lab Routine History of COVID-19 Post-acute sequelae of COVID-19 (PASC) SOB (shortness of breath) Chronic cough Chest discomfort Palpitation CAVANAUGH (dyspnea on exertion) Dizziness Near syncope Night sweats Orthopnea Anxiety Myalgia Pain in joint, multiple sites Expected: 09/19/2021, Expires: 11/19/2021 [facility] Work Phone: Comment on above: Expected: 09/19/2021, Expires: 2 Start: 09-19-2021 End: 11-19-2021 TMAO TMAO Lab Routine History of COVID-19 Post-acute sequelae of COVID-19 (PASC) SOB (shortness of breath) Chronic cough Chest discomfort Palpitation CAVANAUGH (dyspnea on exertion) Dizziness Near syncope Night sweats Orthopnea Anxiety Myalgia Pain in joint, multiple sites Expected: 09/19/2021, Expires: 11/19/2021 [facility] Work Phone: Comment on above: Expected: 09/19/2021, Expires: 2 Start: 09-19-2021 End: 11-19-2021 TRACE ELEMENTS/TPN TRACE ELEMENTS/TPN Lab Routine History of COVID-19 Post-acute sequelae of COVID-19 (PASC) SOB (shortness of breath) Chronic cough Chest discomfort Palpitation CAVANAUGH (dyspnea on exertion) Dizziness Near syncope Night sweats Orthopnea Anxiety Myalgia Pain in joint, multiple sites Expected: 09/19/2021, Expires: 11/19/2021 [facility] Work Phone: Comment on above: Expected: 09/19/2021, Expires: 2 Start: 09-05-2021 Influenza vaccination Flu vaccine (#1) [facility] Start: 08-24-2021 End: 08-24-2021 Patient encounter procedure 08/24/2021 Office Visit Pulmonology Armando Balderrama, [address] [place] [address] [facility] Start: 07-25-2021 End: 09-24-2021 Complement C3 [Mass/volume] in Serum or Plasma [facility] Work Phone: Comment on above: Expected: 07/25/2021, Expires: 2 Start: 07-25-2021 End: 09-24-2021 Complement C4 [Mass/volume] in Serum or Plasma [facility] Work Phone: Comment on above: Expected: 07/25/2021, Expires: 2 Start: 07-25-2021 End: 09-24-2021 TRYPTASE BLOOD [facility] Work Phone: Comment on above: Expected: 07/25/2021, Expires: 2 Start: 07-05-2021 End: 09-04-2021 Corticotropin [Mass/volume] in Plasma ACTH BLD Lab Routine Screening for endocrine disorder Expected: 07/05/2021, Expires: 09/04/2021 [facility] Work Phone: Comment on above: Expected: 07/05/2021, Expires: 2 Start: 07-05-2021 End: 09-04-2021 Cortisol [Mass/volume] in Serum or Plasma CORTISOL BLD Lab Routine Screening for endocrine disorder Expected: 07/05/2021, Expires: 09/04/2021 [facility] Work Phone: Comment on above: Expected: 07/05/2021, Expires: 2 Start: 07-01-2021 End: 08-31-2021 CBC W Ordered Manual Differential panel - Blood PATHOLOGIST INTERPRETATION WITH CBC AND DIFF Lab Routine Coagulopathy (HCC) Qualitative platelet disorder (HCC) Expected: 07/01/2021, Expires: 08/31/2021 [facility] Work Phone: Comment on above: Expected: 07/01/2021, Expires: 2 Start: 07-01-2021 End: 08-31-2021 Fibrinogen [Mass/volume] in Platelet poor plasma by Coagulation assay FIBRINOGEN Lab Routine Coagulopathy (HCC) Qualitative platelet disorder (HCC) Expected: 07/01/2021, Expires: 08/31/2021 [facility] Work Phone: Comment on above: Expected: 07/01/2021, Expires: 2 Start: 07-01-2021 End: 08-31-2021 FIBRINOGEN ANTIGEN FIBRINOGEN ANTIGEN Lab Routine Coagulopathy (HCC) Qualitative platelet disorder (HCC) Expected: 07/01/2021, Expires: 08/31/2021 [facility] Work Phone: Comment on above: Expected: 07/01/2021, Expires: 2 Start: 07-01-2021 End: 08-31-2021 PLATELET AGGREGATION PANEL PLATELET AGGREGATION PANEL Lab Routine Coagulopathy (HCC) Qualitative platelet disorder (HCC) Expected: 07/01/2021, Expires: 08/31/2021 [facility] Work Phone: Comment on above: Expected: 07/01/2021, Expires: 2 Start: 07-01-2021 End: 08-31-2021 PLATELET FUNCTION SCREEN PLATELET FUNCTION SCREEN Lab Routine Coagulopathy (HCC) Qualitative platelet disorder (HCC) Expected: 07/01/2021, Expires: 08/31/2021 [facility] Work Phone: Comment on above: Expected: 07/01/2021, Expires: 2 Start: 07-01-2021 End: 08-31-2021 THROMBOGRAPH HEPARINASE PANEL THROMBOGRAPH HEPARINASE PANEL Lab Routine Coagulopathy (HCC) Qualitative platelet disorder (HCC) Expected: 07/01/2021, Expires: 08/31/2021 [facility] Work Phone: Comment on above: Expected: 07/01/2021, Expires: 2 Start: 06-27-2021 End: 08-27-2021 Alpha tocopherol [Mass/volume] in Serum or Plasma VITAMIN E/TOCOPHEROL Lab Routine Muscle spasms of lower extremity, unspecified laterality Akathisia Expected: 06/27/2021, Expires: 08/27/2021 [facility] Work Phone: Comment on above: Expected: 06/27/2021, Expires: 2 Start: 06-27-2021 End: 08-27-2021 Ceruloplasmin [Mass/volume] in Serum or Plasma CERULOPLASMIN BLD Lab Routine Muscle spasms of lower extremity, unspecified laterality Akathisia Expected: 06/27/2021, Expires: 08/27/2021 [facility] Work Phone: Comment on above: Expected: 06/27/2021, Expires: 2 Start: 06-27-2021 End: 08-27-2021 CK CREATINE KINASE CK CREATINE KINASE Lab Routine Muscle spasms of lower extremity, unspecified laterality Akathisia Expected: 06/27/2021, Expires: 08/27/2021 [facility] Work Phone: Comment on above: Expected: 06/27/2021, Expires: 2 Start: 06-27-2021 End: 08-27-2021 COPPER, SERUM/PLASMA FREE COPPER, SERUM/PLASMA FREE Lab Routine Muscle spasms of lower extremity, unspecified laterality Akathisia Expected: 06/27/2021, Expires: 08/27/2021 [facility] Work Phone: Comment on above: Expected: 06/27/2021, Expires: 2 Start: 06-27-2021 End: 08-27-2021 FERRITIN BLD FERRITIN BLD Lab Routine Muscle spasms of lower extremity, unspecified laterality Akathisia Expected: 06/27/2021, Expires: 08/27/2021 [facility] Work Phone: Comment on above: Expected: 06/27/2021, Expires: 2 Start: 06-14-2021 End: 08-14-2021 Corticotropin [Mass/volume] in Plasma ACTH BLD Lab Routine Screening for endocrine disorder Expected: 06/14/2021, Expires: 08/14/2021 [facility] Work Phone: Comment on above: Expected: 06/14/2021, Expires: 2 Start: 06-14-2021 End: 08-14-2021 Cortisol [Mass/volume] in Serum or Plasma [facility] Work Phone: Comment on above: Expected: 06/14/2021, Expires: 2 Start: 06-14-2021 End: 08-14-2021 DHEA-S BLD [facility] Work Phone: Comment on above: Expected: 06/14/2021, Expires: 2 Start: 06-10-2021 End: 08-10-2021 APTT INCUBATED MIXING STUDY APTT INCUBATED MIXING STUDY Lab Routine Coagulopathy ([facility]) Expected: 06/10/2021, Expires: 08/10/2021 [facility] Work Phone: Comment on above: Expected: 06/10/2021, Expires: 2 Start: 06-10-2021 End: 08-10-2021 Coagulation factor IX activity actual/normal in Platelet poor plasma by Coagulation assay FACTOR IX:C ASSAY Lab Routine Coagulopathy ([facility]) Expected: 06/10/2021, Expires: 08/10/2021 [facility] Work Phone: Comment on above: Expected: 06/10/2021, Expires: 2 Start: 06-10-2021 End: 08-10-2021 Coagulation factor V activity actual/normal in Platelet poor plasma by Coagulation assay FACTOR V:C ASSAY Lab Routine Coagulopathy ([facility]) Expected: 06/10/2021, Expires: 08/10/2021 [facility] Work Phone: Comment on above: Expected: 06/10/2021, Expires: 2 Start: 06-10-2021 End: 08-10-2021 Coagulation factor VIII activity actual/normal in Platelet poor plasma by Coagulation assay FACTOR VIII:C ASSAY Lab Routine Coagulopathy ([facility]) Expected: 06/10/2021, Expires: 08/10/2021 [facility] Work Phone: Comment on above: Expected: 06/10/2021, Expires: 2 Start: 06-10-2021 End: 08-10-2021 Coagulation factor X activity actual/normal in Platelet poor plasma by Coagulation assay FACTOR X:C ASSAY Lab Routine Coagulopathy ([facility]) Expected: 06/10/2021, Expires: 08/10/2021 [facility] Work Phone: Comment on above: Expected: 06/10/2021, Expires: 2 Start: 06-10-2021 End: 08-10-2021 Coagulation factor XI activity actual/normal in Platelet poor plasma by Coagulation assay FACTOR XI:C ASSAY Lab Routine Coagulopathy ([facility]) Expected: 06/10/2021, Expires: 08/10/2021 [facility] Work Phone: Comment on above: Expected: 06/10/2021, Expires: 2 Start: 06-10-2021 End: 08-10-2021 PLATELET AGGREGATION PANEL PLATELET AGGREGATION PANEL Lab Routine Coagulopathy ([facility]) Expected: 06/10/2021, Expires: 08/10/2021 [facility] Work Phone: Comment on above: Expected: 06/10/2021, Expires: 2 Start: 06-10-2021 End: 08-10-2021 PLATELET FUNCTION SCREEN PLATELET FUNCTION SCREEN Lab Routine Coagulopathy ([facility]) Expected: 06/10/2021, Expires: 08/10/2021 [facility] Work Phone: Comment on above: Expected: 06/10/2021, Expires: 2 Start: 06-10-2021 End: 08-10-2021 Prothrombin activity actual/normal in Platelet poor plasma by Coagulation assay FACTOR II:C ASSAY Lab Routine Coagulopathy ([facility]) Expected: 06/10/2021, Expires: 08/10/2021 [facility] Work Phone: Comment on above: Expected: 06/10/2021, Expires: 2 Start: 06-10-2021 End: 08-10-2021 VON WILLEBRAND DX PANEL VON WILLEBRAND DX PANEL Lab Routine Coagulopathy ([facility]) Expected: 06/10/2021, Expires: 08/10/2021 [facility] Work Phone: Comment on above: Expected: 06/10/2021, Expires: 2 Start: 05-25-2021 End: 05-25-2021 Patient encounter procedure 05/25/2021 Office Visit Pulmonology Armando Balderrama DO [address] [phone] [facility] Start: 02-28-2021 End: 02-28-2021 Patient encounter procedure 02/28/2021 Office Visit Pulmonology Fortunato Dean MD [address] [phone] [facility] Start: 02-05-2021 DEPRESSION ASSESSMENT DEPRESSION ASSESSMENT [facility] Start: 10-06-2020 Influenza vaccination [facility] Start: 06-28-2020 End: 06-28-2020 Patient encounter procedure 06/28/2020 Office Visit Pulmonology Fortunato Dean MD [address] [phone] [facility] Start: 12-20-2018 Diabetes screen Diabetes screen [facility] Start: 03-17-2016 Screening for malignant neoplasm of cervix Cervical cancer screen [facility] Work Phone: Start: 12-20-2013 HPV TESTING HPV TESTING [facility] Start: 12-20-2010 HPV Vaccine (1 - 3-dose SCDM series) HPV Vaccine (1 - 3-dose SCDM series) [facility] Start: 12-20-2004 PAP TESTING PAP TESTING [facility] Start: 12-20-2004 Screening for malignant neoplasm of cervix Cervical Cancer Screening [facility] Start: 12-20-2002 DTaP,Tdap and Td Vaccines (1 - Tdap) DTaP,Tdap and Td Vaccines (1 - Tdap) [facility] Start: 12-20-2002 DTaP/Tdap/Td vaccine (1 - Tdap) DTaP/Tdap/Td vaccine (1 - Tdap) [facility] Start: 12-20-2002 Hepatitis B Vaccine (1 of 3 - 19+ 3-dose series) Hepatitis B Vaccine (1 of 3 - 19+ 3-dose series) [facility] Start: 12-20-2002 Hepatitis B vaccine (1 of 3 - Risk 3-dose series) Hepatitis B vaccine (1 of 3 - Risk 3-dose series) [facility] Start: 12-20-2002 Pneumococcal 0-49 years Vaccine (1 of 2 - PCV) Pneumococcal 0-49 years Vaccine (1 of 2 - PCV) [facility] Start: 12-20-2002 Pneumococcal vaccination Pneumococcal Vaccine (1 of 2 - PCV) [facility] Start: 12-20-2002 Urine microalbumin profile [facility] Start: 12-20-2002 Urine screening for protein Diabetes: Urine Protein Screening [facility] Start: 12-20-2001 Adult BMI Follow Up Plan Adult BMI Follow Up Plan [facility] Start: 12-20-2001 ANNUAL PCP TEAM CHRONIC DISEASE VISIT ANNUAL PCP TEAM CHRONIC DISEASE VISIT [facility] Start: 12-20-2001 Anxiety Screening Anxiety Screening [facility] Start: 12-20-2001 Depression Screening Depression Screening [facility] Start: 12-20-2001 Glaucoma screening [facility]abetic retinal exam [facility] Start: 12-20-2001 HEPATITIS C SCREENING HEPATITIS C SCREENING [facility] Start: 12-20-2001 Hepatitis C screening [facility] Start: 12-20-2001 HIV SCREENING HIV SCREENING [facility] Start: 12-20-2001 HIV screening HIV Screening [facility] Start: 12-20-2001 Urine screening for protein Diabetic Alb to Cr ratio (uACR) test [facility] Start: 1999 COVID-19 Vaccine (1) COVID-19 Vaccine (1) [facility] [employer] Phone: Start: 12-20-1998 HIV screening HIV screen [facility] Start: 12-20-1996 Varicella vaccine (1 of 2 - 13+ 2-dose series) Varicella vaccine (1 of 2 - 13+ 2-dose series) [facility] Start: 1995 COVID-19 Vaccine (1) COVID-19 Vaccine (1) [facility] [employer] Phone: Start: 1995 Depression Screen Depression Screen [facility] Start: 12-20-1993 Diabetic foot examination Diabetic foot exam [facility] Start: 12-20-1993 Glaucoma screening Diabetes: Retinopathy Screening [facility] Start: 12-20-1993 Lipid panel Lipids [facility] Start: 12-20-1989 PNEUMOCOCCAL (1 - PCV) PNEUMOCOCCAL (1 - PCV) [facility] Start: 12-20-1989 Pneumococcal 0-64 years Vaccine (1 - PCV) Pneumococcal 0-64 years Vaccine (1 - PCV) [facility] Start: 12-20-1989 Pneumococcal 0-64 years Vaccine (1 of 2 - PCV) Pneumococcal 0-64 years Vaccine (1 of 2 - PCV) [facility] Start: 12-20-1989 Pneumococcal 0-64 years Vaccine (1 of 2 - PPSV23) Pneumococcal 0-64 years Vaccine (1 of 2 - PPSV23) [facility] Start: 12-20-1989 Pneumococcal vaccination Pneumococcal Vaccine (1 of 2 - PCV) [facility] Start: 12-20-1988 COVID-19 VACCINE (#1) COVID-19 VACCINE (#1) [facility] Start: 12-20-1988 COVID-19 Vaccine (1) COVID-19 Vaccine (1) [facility] Start: 12-20-1984 Varicella vaccine (1 of 2 - 2-dose childhood series) Varicella vaccine (1 of 2 - 2-dose childhood series) [facility] Start: 06-19-1984 COVID-19 VACCINE (#1) COVID-19 VACCINE (#1) [facility] Start: 1983 HEPATITIS B (1 of 3 - 3-dose series) HEPATITIS B (1 of 3 - 3-dose series) [facility] Start: 1983 Hepatitis C screening Hepatitis C screen [facility] ACTIGRAPHY TESTING ACTIGRAPHY TE STING Procedures Routine Shift work sleep disorder Poor sleep pattern 1 Occurrences starting 11/16/2021 [facility] Work Phone: Comment on above: 1 Occurrences starting 11/16/2021 End: 10-28-2025 AMB Videostroboscopy AMB Videostroboscopy Imaging Routine Vocal cord dysfunction 1 Occurrences starting 10/28/2024 until 10/28/2025 [employer] Work Phone: Comment on above: 1 Occurrences starting 10/28/2024 until 10/28/2025 Ambulatory bp mntr w /sw 24 hr+ rec scan ewa i&r AMBULATORY BP MONITORING Cardiology Routine Blood pressure instability Ordered: 07/21/2021 [facility] Work Phone: Comment on above: Ordered: 07/21/2021 BLOOD CULTURE 1 BLOOD CULTURE 1 Lab Routine 02/20/2024 2:16 PM EST [facility] BLOOD CULTURE 2 BLOOD CULTURE 2 Lab Routine 02/20/2024 2:17 PM EST [facility] Cardiovascular funct ion eval w/tilt table w/mntr TILT TABLE EVALUATION Cardiology Routine Palpitations Symptomatic bradycardia Orthostatic intolerance Ordered: 10/20/2021 [facility] Work Phone: Comment on above: Ordered: 10/20/2021 Cytology Cervical or vaginal smear or scraping study Pap Smear Pathology and Cytology Routine Well woman exam with routine gynecological exam Ordered: 11/20/2023 [employer] Work Phone: Comment on above: Ordered: 11/20/2023 End: 07-21-2022 Echocardiography ECHO Cardiology Routine Symptomatic bradycardia Blood pressure instability History of COVID-19 1 Occurrences starting 07/21/2021 until 07/21/2022 [facility] [employer] Work Phone: Comment on above: 1 Occurrences starting 07/21/2021 until 07/21/2022 EKG 12 Lead EKG 12 Lead ECG STAT 11/01/2020 4:26 PM EDT [facility] Work Phone: EKG 12 Lead EKG 12 Lead ECG STAT 04/16/2021 8:11 PM EST [facility] Work Phone: EKG 12 Lead EKG 12 Lead ECG STAT 06/21/2021 12:06 AM EDT [facility] Work Phone: Human papilloma viru s DNA [Presence] in Unspecified specimen by Probe with amplification HPV DNA probe, amplified Microbiology Routine Well woman exam with routine gynecological exam Ordered: 11/20/[address] [facility] Comment on above: Ordered: 11/20/2023 End: 10-19-2022 LUNG DIFFUSION CAPACITY (DLCO) LUNG DIFFUSION CAPACITY (DLCO) PFT Routine History of COVID-19 Post-acute sequelae of COVID-19 (PASC) SOB (shortness of breath) Chronic cough Chest discomfort Palpitation CAVANAUGH (dyspnea on exertion) Dizziness Near syncope Night sweats Orthopnea Anxiety Myalgia Pain in joint, multiple sites 1 Occurrences starting 09/19/2021 until 10/19/2022 [facility] Work Phone: Comment on above: 1 Occurrences starting 09/19/2021 until 10/19/2022 End: 10-19-2022 LUNG VOLUMES LUNG VOLUMES PFT Routine History of COVID-19 Post-acute sequelae of COVID-19 (PASC) SOB (shortness of breath) Chronic cough Chest discomfort Palpitation CAVANAUGH (dyspnea on exertion) Dizziness Near syncope Night sweats Orthopnea Anxiety Myalgia Pain in joint, multiple sites 1 Occurrences starting 09/19/2021 until 10/19/2022 [facility] Work Phone: Comment on above: 1 Occurrences starting 09/19/2021 until 10/19/2022 End: 12-27-2023 Mumps Antibody, IgG [facility] [employer] Comment on above: Once for 1 Occurrences starting 12/27/19 until 12/27/2023 End: 01-05-2023 NITRIC OXIDE, EXHALED NITRIC OXIDE, EXHALED PFT Routine Moderate persistent asthma without complication SOB (shortness of breath) Post-acute sequelae of COVID-19 (PASC) 1 Occurrences starting 12/06/2021 until 01/05/2023 [facility] Work Phone: Comment on above: 1 Occurrences starting 12/06/2021 until 01/05/2023 OUTSIDE VENDOR CARDI AC OUTPATIENT EXTENDED RHYTHM RECORDING (WITHOUT TELEMETRY) OUTSIDE VENDOR CARDIAC OUTPATIENT EXTENDED RHYTHM RECORDING (WITHOUT TELEMETRY) Holter Routine Palpitations Symptomatic bradycardia Orthostatic lightheadedness Diffuse pain Blood pressure instability Decreased activity tolerance Orthostatic intolerance Moderate persistent asthma without complication Physical deconditioning Ordered: 10/20/2021 [facility] Work Phone: Comment on above: Ordered: 10/20/2021 End: 12-16-2022 PAP NAP PSG (CPAP, BILEVEL, ASV) PAP NAP PSG (CPAP, BILEVEL, ASV) Procedures Routine KATELIN on CPAP Poor compliance with CPAP treatment 1 Occurrences starting 11/16/2021 until 12/16/2022 [facility] Work Phone: Comment on above: 1 Occurrences starting 11/16/2021 until 12/16/2022 End: 12-16-2022 PAP TITRATION PSG (CPAP, BIPAP, ASV) PAP TITRATION PSG (CPAP, BIPAP, ASV) Procedures Routine KATELIN on CPAP 1 Occurrences starting 11/16/2021 until 12/16/2022 [facility] Work Phone: Comment on above: 1 Occurrences starting 11/16/2021 until 12/16/2022 End: 02-17-2022 PLATELET ELECT.HOSSEIN LOMBARDI [facility] Work Phone: Comment on above: [...] sites 1 Occurrences starting 09/19/2021 until 10/19/2022 [facility] Work Phone: Comment on above: 1 Occurrences starting 09/19/2021 until 10/19/2022 End: 12-27-2023 Rubeola Antibody, IgG [facility] Work Phone: Comment on above: Once for 1 Occurrences starting 12/27/19 until 12/27/2023 End: 10-19-2022 SIX MINUTE WALK SIX MINUTE WALK PFT Routine History of COVID-19 Post-acute sequelae of COVID-19 (PASC) SOB (shortness of breath) Chronic cough Chest discomfort Palpitation CAVANAUGH (dyspnea on exertion) Dizziness Near syncope Night sweats Orthopnea Anxiety Myalgia Pain in joint, multiple sites 1 Occurrences starting 09/19/2021 until 10/19/2022 [facility] Work Phone: Comment on above: 1 Occurrences starting 09/19/2021 until 10/19/2022 SIX MINUTE WALK SIX MINUTE WALK PFT Routine History of COVID-19 Post-acute sequelae of COVID-19 (PASC) SOB (shortness of breath) Chronic cough Chest discomfort Palpitation CAVANAUGH (dyspnea on exertion) Dizziness Near syncope Night sweats Orthopnea Anxiety Myalgia Pain in joint, multiple sites 09/27/2021 8:23 AM EDT [facility] Work Phone: End: 10-19-2022 SPIROMETRY - BASELINE AND POST DILATOR SPIROMETRY - BASELINE AND POST DILATOR PFT Routine History of COVID-19 Post-acute sequelae of COVID-19 (PASC) SOB (shortness of breath) Chronic cough Chest discomfort Palpitation CAVANAUGH (dyspnea on exertion) Dizziness Near syncope Night sweats Orthopnea Anxiety Myalgia Pain in joint, multiple sites 1 Occurrences starting 09/19/2021 until 10/19/2022 [facility] Work Phone: Comment on above: 1 Occurrences starting 09/19/2021 until 10/19/2022 End: 01-05-2023 SPIROMETRY - BASELINE AND POST DILATOR SPIROMETRY - BASELINE AND POST DILATOR PFT Routine Moderate persistent asthma without complication SOB (shortness of breath) Post-acute sequelae of COVID-19 (PASC) 1 Occurrences starting 12/06/2021 until 01/05/2023 [facility] Work Phone: Comment on above: 1 Occurrences starting 12/06/2021 until 01/05/2023 End: 05-07-2024 Thyroid profile includes TSH FT4 Thyroid profile includes TSH FT4 Lab Routine 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 1 Occurrences starting 05/08/2023 until 05/07/2024 [employer] Work Phone: Comment on above: 1 Occurrences starting 05/08/2023 until 05/07/2024 End: 11-21-2024 Thyrotropin [Units/volume] in Serum or Plasma TSH Lab Routine 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 1 Occurrences starting 11/22/2023 until 11/21/2024 [employer] Work Phone: Comment on above: 1 Occurrences starting 11/22/2023 until 11/21/2024 End: 11-21-2024 Thyroxine (T4) free [Mass/volume] in Serum or Plasma T4, free Lab Routine 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 1 Occurrences starting 11/22/2023 until 11/21/2024 [employer] Comment on above: 1 Occurrences starting 11/22/2023 until 11/21/2024 End: 10-19-2022 Us chest real time w/image documentation US CHEST WALL/SOFT TISSUE Radiology Routine Post-acute sequelae of COVID-19 (PASC) Mass of left axilla 1 Occurrences starting 09/19/2021 until 10/19/2022 [facility] Work Phone: Comment on above: 1 Occurrences starting 09/19/2021 until 10/19/2022 End: 09-15-2022 Us pelvic nonobstetric image dcmtn limited/f/u US PELVIS LTD Radiology Routine Chronic RLQ pain 1 Occurrences starting 08/16/2021 until 09/15/2022 [facility] Work Phone: Comment on above: 1 Occurrences starting 08/16/2021 until 09/15/2022 End: 09-14-2022 US SOFT TISSUE ABDOMEN US SOFT TISSUE ABDOMEN Radiology Routine Chronic RLQ pain 1 Occurrences starting 08/15/2021 until 09/14/2022 [facility] Work Phone: Comment on above: 1 Occurrences starting 08/15/2021 until 09/14/2022 End: 12-27-2023 Varicella Zoster Antibody, IgG [facility] Comment on above: Once for 1 Occurrences starting 12/27/19 24 until 12/27/2023 [facility] Immunizations Immunization Date Immunization Notes Care Provider [facility] 11-20-2019 influenza virus vaccine, H5N1, A/[place] (national stockpile) Cas Dowell MD Work Phone: [facility] 11-20-2019 influenza virus vaccine, unspecified formulation Araseli Barrett MD Work Phone: [facility] Work Phone: 11-20-2019 influenza, unspecified formulation LORAINE BURNHAM [facility] 11-06-2019 influenza virus vaccine, unspecified formulation LORAINE BURNHAM [facility] 11-06-2019 influenza, high dose seasonal, preservative-free Yan Bass MD Work Phone: [facility] 10-27-2019 influenza virus vaccine, unspecified formulation LORAINE TEJ [facility] 10-27-2019 influenza, injectable, quadrivalent, preservative free Yan Bass MD Work Phone: [facility] NEGATED: Highlighted row has not occurred!01-04-2023 influenza virus vaccine, unspecified formulation Selma Rubylia [facility] Payers Date Payer Category Payer Unknown [id number] 2022 Blue Cross Blue Shield [id number] [id number] 2022 Blue Cross Blue Shie Managed Care - PPO [id number] 2022 Private Health Insurance [id number] 2022 Unknown [id number] 2022 Unknown [id number] [id number] 2022 Unknown [id number] 2014 Unknown MMO MMO [employer]US [id number] 2014-Present [phone] [address] [place] [address] PPO [id number] 2014 Unknown [id number] 1.13.159.2.7 .[id number] 1983 Unknown [id number] 2.16.840.1.201092.3.579.2.1 74 1983 Unknown [id number] 2.16.840.1.965140.3.579.2.1 74 1983 Unknown [id number] 2.16.840.1.940001.3.579.2.1 75 1983 Unknown [id number] 2.16.840.1.909087.3.579.2.5 93 1983 Unknown [id number] 2.16.840.1.872941.3.579.2.5 93 1983 Unknown [id number] 2.16.840.1.506398.3.579.2.5 93 1983 Unknown [id number] 2.16.840.1.874600.3.579.2.5 93 1983 Unknown [id number] 2.16.840.1.880265.3.579.2.5 93 1983 Unknown [id number] 2.16.840.1.500577.3.579.2.5 93 1983 Unknown [id number] 2.16.840.1.917014.3.579.2.5 93 1983 Unknown [id number] 2.16.840.1.589846.3.579.2.5 93 1983 Unknown [id number] 2.16.840.1.419935.3.579.2.5 93 1983 Unknown [id number] 2.16.840.1.792727.3.579.2.5 93 1983 Unknown [id number] 2.16.840.1.277402.3.579.2.5 93 1983 Unknown [id number] 2.16.840.1.903503.3.579.2.5 93 1983 Unknown [id number] 2.16.840.1.460694.3.579.2.1 286 1983 Unknown [id number] 2.16.840.1.805303.3.579.2.1 286 1983 Unknown [id number] 2.16.840.1.490723.3.579.2.1 286 1983 Unknown [id number] 2.16.840.1.169760.3.579.2.1 286 1983 Unknown [id number] 2.16.840.1.248738.3.579.2.1 286 1983 Unknown [id number] 2.16.840.1.024790.3.579.2.1 96 1983 Unknown [id number] 2.16.840.1.420504.3.579.2.1 96 1983 Unknown [id number] 2.16.840.1.646439.3.579.2.1 96 1983 Unknown [id number] 2.16.840.1.295430.3.579.2.1 73 1983 Unknown [id number] 2.16.840.1.432533.3.579.2.1 73 1983 Unknown [id number] 2.16.840.1.775768.3.579.2.1 73 1983 Unknown [id number] 2.16.840.1.983506.3.579.2.1 259 1983 Unknown [id number] 2.16.840.1.374983.3.579.2.1 259 1983 Unknown [id number] 2.16.840.1.663944.3.579.2.1 259 1983 Unknown [id number] 2.16.840.1.591389.3.579.2.1 259 1983 Unknown [id number] 2.16.840.1.309768.3.579.2.1 259 1983 Unknown [id number] 2.16.840.1.437995.3.579.2.1 259 1983 Unknown [id number] 2.16.840.1.727492.3.579.2.1 259 1983 Unknown [id number] 2.16.840.1.122964.3.579.2.1 259 1983 Unknown [id number] 2.16.840.1.578034.3.579.2.7 27 1983 Unknown [id number] 2.16.840.1.902298.3.579.2.7 27 1983 Unknown [id number] 2.16.840.1.831122.3.579.2.1 286 1983 Unknown [id number] 2.16.840.1.712023.3.579.2.1 286 1959 Unknown [id number] 1.2.840.103570.1.13.239.2.7 .3.178061.315 1959 Unknown [id number] 1.2.840.962521.1.13.239.2.7 .3.305527.315 Unknown [facility] [id number] Social History Date Type Detail Facility Start: 06-13-2020 End: 04-10-2022 Tobacco smoking status [facility] Never smoker [email or web address] Phone: Start: 06-13-2020 End: 04-17-2024 Alcohol intake Current non-drinker of alcohol (finding) [email or web address] Phone: Start: 1985 Sex Assigned At Not on file [email or web address] Phone: Start: 05-10-2021 End: 01-30-2022 Exposure to SARS-CoV-2 (event) Not sure [facility] Start: 08-30-2020 End: 04-10-2022 Tobacco use and exposure Never used [facility] Start: 05-24-2021 End: 07-01-2021 Alcohol intake Current drinker of alcohol (finding) [facility] Start: 02-23-2014 History SDOH Alcohol Comment rarely uses alcohol [facility] Start: 1985 Sex Assigned At Female [facility] Start: 07-22-2021 End: 10-29-2024 Alcohol intake Ex-drinker (finding) [facility] Start: 09-17-2021 End: 09-27-2021 Exposure to SARS-CoV-2 (event) Unable to assess [facility] History of tobacco use Passive smoker [facility] Start: 02-20-2014 Tobacco smoking status Never [facility] Start: 03-18-2020 End: 10-02-2022 Sex Assigned At Female [facility] Start: 03-18-2020 End: 10-02-2022 History of Social function [facility] Start: 09-26-2020 Gender identity Identifies as female gender (finding) [facility] Start: 09-26-2020 Sexual orientation Heterosexual (finding) [facility] Start: 01-16-2023 End: 02-27-2024 Alcohol intake [...] Start: 03-17-2012 End: 09-10-2014 Sex Female (finding) [facility] Within the last year , have you been afraid of your partner or ex-partner? No [facility] Do you feel stress - tense, restless, nervous, or anxious, or unable to sleep at night because your mind is troubled all the time - these days [OSQ] Very much [facility] (I/We) worried wheth er (my/our) food would run out before (I/we) got money to buy more. Sometimes true [facility] The food that (I/we) bought just didn't last, and (I/we) didn't have money to get more. Never true [facility] Sexual Orientation [facility] Functional Status Date Assessment Result Facility 08-08-2024 Total score [AUDIT-C] 0 08/09/19 11:04 AM EDT Mychart, Generic [facility] 08-08-2024 How often to you hav e a drink containing alcohol? Never 08/08/2024 11:04 AM EDT Mychart, Generic Never [facility] 08-08-2024 Functional status Patient does n ot drink 08/08/2024 11:04 AM EDT Mychart, Generic Patient does not drink [facility] 08-08-2024 How often do you hav e 6 or more drinks on 1 occasion? Never 08/08/2024 11:04 AM EDT Mychart, Generic Never [facility] 10-02-2023 Functional Status N/A [facility] 09-05-2022 Functional Status N/A [facility] 02-28-2022 Functional Status N/A [facility] 01-20-2022 Functional Status N/A [facility] 2021 Functional Status N/A [facility] 02-23-2014 Are you deaf, or do you have serious difficulty hearing No 02/23/2014 2:04 PM Keke Page MA No [facility] 02-23-2014 Are you blind, or do you have serious difficulty seeing, even when wearing glasses No 02/23/2014 2:04 PM Keke Page MA No [facility] 02-23-2014 Do you have serious difficulty walking or climbing stairs No 02/23/2014 2:04 PM Keke Page MA No [facility] 02-23-2014 Do you have difficul ty dressing or bathing No 02/23/2014 2:04 PM Keke Page MA No [facility] 02-23-2014 Because of a physica l, mental, or emotional condition, do you have difficulty doing errands alone such as visiting a physician's office or shopping No 02/23/2014 2:04 PM INES Thompson, Keke, MA No [facility] Mental Status Date Assessment Result Facility 02-23-2014 Because of a physica l, mental, or emotional condition, do you have serious difficulty concentrating, remembering, or making decisions No 02/23/2014 2:04 PM INES Thompson, Keke, MA No [facility] Clinical Notes 09-06-2020 to 10-28-2024 Terri Han MD - 10/28/2024 8:15 AM EDTPatient Margot Marquis APRN.[employer] - 09/30/2024 9:01 AM Zurdo Dowell MD - 09/25/2024 4:41 PM EDMaria De Jesus Dowell MD - 09/25/2024 4:41 PM EDT Note Date & Type Note Facility 10-28-2024 History of Present illness Narrative [facility] [address] [place] [address], [address] [address] SUBJECTIVE: Patient ID: Leana Tran is a 38 y.o. female presents today for Chief Complaint Patient presents with chronic rhinosinusitis Right nostril HPI: Leana Tran is a 38 y.o. female seen to follow-up chronic sinusitis. She was last seen in the office on 08/10/22. She followed up with speech therapy a few times since she was last seen, but discontinued this when she was hospitalized multiple times for illness. She also had multiple anaphylactic-type reactions to random triggers, but SPT was negative. She notes that she did have hives and redness on her back during the test, though. I was able to review the digital imager's records which noted negative testing. Claim Attorney was concerned for vocal cord dysfunction as contributing factor to dyspnea and desaturation episodes that result in hospitalization at times. She saw speech therapy again at a different location per digital imager recommendations, but she was not scoped nor specifically evaluated for vocal cord dysfunction. She has also had multiple asthma attacks. She has been using Flonase Sensimist morning and night as well as nasal saline occasionally as needed. HISTORY: Past Medical History: Diagnosis Date Allergic 1991 Allergic rhinitis 1991 Anxiety Asthma Back pain 1996 Bradycardia Chest pain Clotting disorder 1984 COVID Depression Diabetes mellitus ([facility]) Diabetes mellitus type 2, controlled ([facility]) Eczema 2006 Elevated [...] SINUS SURGERY TUBAL LIGATION UMBILICAL HERNIA REPAIR Family History Problem Relation Age of Onset [...] Vision loss Sister Diabetes Sister Hypertension Sister Social History Socioeconomic History Marital status: Spouse [...] Resource Strain: Medium Risk (08/08/2024) Received from [facility] Overall Financial Resource Strain (CARDIA) Difficulty of Paying Living Expenses: Somewhat hard Food Insecurity: Food Insecurity Present (08/08/2024) Received from [facility] Hunger Vital Sign Worried About Running Out of Food in the Last Year: Sometimes true Ran Out of Food in the Last Year: Never true Transportation Needs: No Transportation Needs (08/08/2024) Received from [facility] PRAPARE - Transportation Lack of Transportation (Medical): No Lack of Transportation (Non-Medical): No Physical Activity: Sufficiently Active (08/08/2024) Received from [facility] Exercise Vital Sign Days of Exercise per Week: 6 days Minutes of Exercise per Session: 60 min Stress: Stress Concern Present (08/08/2024) Received from [facility] [place] [facility] Occup[facility] - Occupational Stress Questionnaire Feeling of Stress : Very much Social Connections: Unknown (08/08/2024) Received from [facility] Social Connection and Isolation Panel [NHANES] Frequency of Communication with Friends and Family: More than three times a week Frequency of Social Gatherings with Friends and Family: Patient declined Attends Nondenominational Services: Patient declined Active Member of Clubs or Organizations: No Attends Club or Organization Meetings: Patient declined Marital Status: Interpersonal Safety: Unknown (08/08/2024) Received from [facility] Humiliation, Afraid, Rape, and Kick questionnaire Fear of Current or Ex-Partner: No Emotionally Abused: Patient declined Physically Abused: No Sexually Abused: No Housing Instability: Low Risk (08/08/2024) Received from [facility] Housing Stability Vital Sign Unable to Pay for Housing in the Last Year: No Number of Times Moved in the Last Year: 0 Homeless in the Last Year: No Allergies Allergen Reactions Cefaclor Anaphylaxis, Swelling and [...] Itching and Rash Povidone-Iodine Rash Rofecoxib Rash Current Outpatient Medications Medication Sig Dispense Refill baclofen (LIORESAL) 20 mg tablet Take 0.5-1 tablets (10-20 mg total) by mouth nightly. 90 tablet 1 cholecalciferol, vitamin D3, (VITAMIN D3 ORAL) Take 1 capsule by mouth. cyanocobalamin (VITAMIN B12) 1,000 mcg tablet, sublingual Place 1 tablet (1,000 mcg total) under the tongue in the morning. 30 tablet 11 diphenhydrAMINE (BENADRYL) 25 mg capsule Take by mouth every 6 (six) hours as needed. DULoxetine (CYMBALTA) 60 mg capsule Take 1 capsule (60 mg total) by mouth nightly. EPINEPHrine (EPIPEN) 0.3 mg/0.3 mL auto-injector fremanezumab-vfrm (AJOVY 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) 225 mg/1.5 mL Inject 1.5 mL (225 mg total) under the skin every 28 days. 4.5 mL 3 lamoTRIgine (LaMICtal) 150 mg tablet Take 1 tablet (150 mg total) by mouth once daily at bedtime. levocetirizine (XYZAL) 5 mg tablet Take 1 tablet (5 mg total) by mouth every evening. liothyronine (CYTOMEL) 5 MCG tablet TAKE 1 TABLET (5 MCG TOTAL) BY MOUTH IN THE MORNING. 90 tablet 2 magnesium gluconate (MAGONATE) 500 mg tablet tablet Take 27 mg by mouth in the morning and 27 mg before bedtime. 600 mg. montelukast (SINGULAIR) 10 mg tablet Take 1 tablet (10 mg total) by mouth in the morning. ondansetron ODT (ZOFRAN ODT) 4 mg disintegrating tablet pantoprazole (PROTONIX) 40 mg EC tablet Take by mouth in the morning. potassium chloride (K-TAB,KLOR-CON) 10 MEQ CR tablet Take 1 tablet (10 mEq total) by mouth in the morning. pyridostigmine (MESTINON) 60 mg tablet Take 1 tablet (60 mg total) by mouth 3 (three) times a day. sAXagliptin (ONGLYZA) 5 mg tablet Take 1 tablet (5 mg total) by mouth in the morning. sertraline (ZOLOFT) 100 mg tablet Take 1 tablet (100 mg total) by mouth in the morning. SYNTHROID 100 mcg tablet TAKE 1 TABLET (100 MCG TOTAL) BY MOUTH IN THE MORNING 90 tablet 3 UBRELVY 100 mg tablet Take 100 mg by mouth once as needed (migraine) for up to 1 dose. 16 tablet 12 zonisamide (ZONEGRAN) 100 mg capsule Take 2 capsules (200 mg total) by mouth in the evening. 180 capsule 1 albuterol (PROVENTIL HFA;VENTOLIN HFA) 90 mcg/actuation inhaler as needed. (Patient not taking: Reported on 10/28/2024) fluticasone (VERAMYST) 27.5 mcg/actuation nasal spray Administer 2 sprays into each nostril once daily. (Patient not taking: Reported on 10/28/2024) ketorolac (TORADOL) 10 mg tablet Take 1 tablet (10 mg total) by mouth every 6 (six) hours as needed for pain. (Patient not taking: Reported on 10/28/2024) 20 tablet 0 No current facility-administered medications for this visit. REVIEW OF SYSTEMS: Review of Systems HENT: Positive for congestion (both feel plugged right is worse), ear discharge, ear pain (wet bilateral left itch and has a rash), postnasal drip, sore throat and trouble swallowing. Negative for sinus pressure and sinus pain. Respiratory: Positive for cough and shortness of breath. Allergic/Immunologic: Positive for environmental allergies and food allergies. Neurological: Positive for dizziness and headaches. Data Reviewed: PHYSICAL EXAMINATION: Temp 36.6 C (97.9 F) Ht 162.6 cm (5' 4.02 ) Wt 104 kg (229 lb 3.2 oz) BMI 39.32 kg/m Constitutional: General Appearance: Healthy, alert, cooperative, and in no distress Ability to Communicate: Normal ability to communicate and Voice normal Head/Face: Inspection of Head/Face: Normocephalic without obvious abnormality, Atraumatic appearance, and Sinuses non-tender Facial Nerve: Facial nerve symmetrical and intact Salivary Glands: Parotid Gland: Normal, Submandibular Gland: Normal, and Sublingual Gland: Normal Eyes: No gross abnormalities, EOMI, and No Nystagmus Ears: External Ear: Normal bilateral External Auditory Canal: Normal bilateral Tympanic Membranes: Abnormal bilateral Tympanosclerosis Middle Ear: Normal bilateral Hearing: Normal bilateral Nose: External Nose: Normal Septum: Midline septum Mucosa/Turbinates: Normal mucosa and Inferior turbinate hypertrophy Oral Cavity: Normal lips, Normal teeth, Normal gums, Normal floor of mouth, Normal oral mucosa, and geographic tongue Oropharynx: Normal mucosa, Normal hard palate, Normal tonsils, Normal Vallecula, and long hooded soft palate and uvula Nasopharynx: Mucosa appearance normal, Adenoids normal, Eustachian tubes normal, Fossa of Rosenmuller normal, and Posterior choanae normal Hypopharynx: Pharyngeal bui normal, Pyriform sinuses normal, and Base of tongue normal Larynx: Mobility of larynx normal, Epiglottis normal, True vocal cords normal bilateral, False vocal cords normal bilateral, and Arytenoids normal bilateral TMJ: Clicking right and left and Crepitus right and left Neck: Neck supple, No adenopathy, Thyroid normal in size without nodules or tenderness, No palpable neck masses, and Carotids normal Respiratory: No stridor, Normal respiratory effort and No use of accessory muscles Cardiovascular: Regular rate and Regular rhythm Neurologic: Patient is alert and oriented x3 with normal affect and grossly normal cranial nerves Procedure Note: Flexible Laryngoscopy Pre-operative Diagnosis: Dyspnea, asthma, vocal cord dysfunction Post-operative Diagnosis: same Surgeon: Terri Han MD Anesthesia: Oxymetazoline and 4% Lidocaine Endoscopy Type: Flexible Laryngoscopy Procedure Details: The procedure was necessary based on the diagnosis noted above to examine the structures of the hypopharynx and larynx and on the inability to adequately examine those structures using other examination techniques such as mirror exam. The patient was placed in the sitting position. After topical anesthesia and decongestant applied, a flexible laryngoscope was passed. The nasal cavities, nasopharynx, oropharynx, hypopharynx, and larynx (including the epiglottis, base of tongue, false cords, true cords, arytenoids, post-cricoid region, and the pyriform sinuses) were all examined. Vocal cords were examined during respiration and phonation. The structures examined during this procedure were normal unless specifically noted below. The following findings were noted: Findings: Right: Inferior turbinate hypertrophy. Widely patent maxillary sinus. Edematous ethmoid bulla. No pus or polyp. Left: Inferior turbinate hypertrophy. Widely patent maxillary sinus. Edematous ethmoid bulla. No pus or polyp. Normal nasopharynx. Symmetric lingula tonsil hypertrophy. Normal epiglottis. Normal pyriform sinuses. Normal true and false vocal cords. Normal arytenoids. Condition: The procedure was successful and tolerated well. 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 Recommendations for treatment were provided including the following: - Flexible laryngoscopy was performed today in the office. Results were reviewed and all questions and concerns were addressed. - Recommend undergoing speech and language pathologist here for vocal cord dysfunction evaluation and possible treatment. - Recommend completing a CT sinuses for further evaluation of chronic sinusitis. - Continue using Flonase Sensimist and nasal saline. - Follow up in 3 months. The patient will contact my office if there are any additional questions or concerns: . Non-emergent messages received through DVDPlay may take up to 2 business days for a response. Scribe Statement: Scribed for and in the presence of Terri Han MD by Sharon Gilliland (Scribe). Sharon Gilliland 10/28/2024 8:34 AM Provider Statement: I Terri Han MD personally performed the services described in the documentation as described by the above named scribe in my presence. It is both accurate and complete at the time of final signature. Dr. Terri Han 10/28/2024 3:58 PM Electronically signed by Terri Han MD Please note that parts of this chart were generated using voice recognition M*Modal dictation software. Although every effort was made to ensure the accuracy of this automated sort line, some errors in sort line may have occurred. documented in this encounter [facility] HDmessaging [facility] 10-28-2024 Instructions Sharon Gilliland - 10/28/2024 8:15 AM EDT Today's examination findings were discussed with the patient/patient's parent or guardian. Recommendations for treatment were provided including the following: - Flexible laryngoscopy was performed today in the office. Results were reviewed and all questions and concerns were addressed. - Recommend undergoing speech therapy here for vocal cord dysfunction. - Recommend completing a CT sinuses for further evaluation of chronic sinusitis. - Continue using Flonase Sensimist and nasal saline. - Follow up in 3 months. The patient will contact my office if there are any additional questions or concerns: . Non-emergent messages received through DVDPlay may take up to 2 business days for a response. documented in this encounter [facility] 10-09-2024 Hospital Discharge instructions Patient Education 10/09/2024 13:05:39 Lipoma Lipoma A lipoma is a noncancerous (benign) tumor that is made up of fat cells. This is a very common type of soft-tissue growth. Lipomas are usually found under the skin (subcutaneous). They may occur in any tissue of the body that contains fat. Common areas for lipomas to appear include the back, arms, shoulders, buttocks, and thighs. Lipomas grow slowly, and they are usually painless. Most lipomas do not cause problems and do not require treatment. What are the causes? The cause of this condition is not known. What increases the risk? You are more likely to develop this condition if: You are 40 60 years old. You have a family history of lipomas. What are the signs or symptoms? A lipoma usually appears as a small, round bump under the skin. In most cases, the lump will: Feel soft or rubbery. Not cause pain or other symptoms. However, if a lipoma is located in an area where it pushes on nerves, it can become painful or cause other symptoms. How is this diagnosed? A lipoma can usually be diagnosed with a physical exam. You may also have tests to confirm the diagnosis and to rule out other conditions. Tests may include: Imaging tests, such as a CT scan or an MRI. Removal of a tissue sample to be looked at under a microscope (biopsy). How is this treated? Treatment for this condition depends on the size of the lipoma and whether it is causing any symptoms. For small lipomas that are not causing problems, no treatment is needed. If a lipoma is bigger or it causes problems, surgery may be done to remove the lipoma. Lipomas can also be removed to improve appearance. Most often, the procedure is done after applying a medicine that numbs the area (local anesthetic). Liposuction may be done to reduce the size of the lipoma before it is removed through surgery, or it may be done to remove the lipoma. Lipomas are removed with this method to limit incision size and scarring. A liposuction tube is inserted through a small incision into the lipoma, and the contents of the lipoma are removed through the tube with suction. Follow these instructions at home: Watch your lipoma for any changes. Keep all follow-up visits. This is important. Where to find more information OrthoInfo: orthoinfo.aaos.org Contact a health care provider if: Your lipoma becomes larger or hard. Your lipoma becomes painful, red, or increasingly swollen. These could be signs of infection or a more serious condition. Get help right away if: You develop tingling or numbness in an area near the lipoma. This could indicate that the lipoma is causing nerve damage. Summary A lipoma is a noncancerous tumor that is made up of fat cells. Most lipomas do not cause problems and do not require treatment. If a lipoma is bigger or it causes problems, surgery may be done to remove the lipoma. Contact a health care provider if your lipoma becomes larger or hard, or if it becomes painful, red, or increasingly swollen. These could be signs of infection or a more serious condition. This information is not intended to replace advice given to you by your health care provider. Make sure you discuss any questions you have with your health care provider. Document Revised: 02/10/2022 Document Reviewed: 02/10/2022 [employer] Patient Education 2023 [employer] 10/09/2024 13:05:34 Kidney Stones, Beet-cj-Jeat Kidney Stones Kidney stones are rock-like masses [...] pee. The stone usually leaves your body through your pee. A doctor may need to take out the stone. What are the causes? Kidney stones may be caused by: Too much calcium in the body. This may be caused by too much parathyroid hormone in the blood. Uric acid crystals in the bladder. The body makes uric acid when you eat certain foods. Narrowing of one or both of the ureters. A kidney blockage that you were born with. Past surgery on the kidney or the ureters. What increases the risk? You are more likely to develop this condition if: You have had a kidney stone in the past. Other people in your family have had kidney stones. You do not drink enough water. You eat a diet that is high in protein, salt (sodium), or sugar. You are very overweight (obese). What are the signs or symptoms? Symptoms of a kidney stone may include: Pain in the side of the belly, right below the ribs. Pain usually spreads to the groin. Needing to pee often or right away. Pain when peeing. Blood in your pee. Feeling like you may vomit (nauseous). Vomiting. Fever and chills. How is this treated? Treatment depends on the size, location, and makeup of the kidney stones. The stones will often pass out of the body when you pee. You may need to: Drink more fluid to help pass the stone. ?In some cases, you may be given fluids through an IV tube at the hospital. Take medicine for pain. Change your diet to help keep kidney stones from coming back. Sometimes, you may need: A procedure to break up kidney stones using a beam of light (laser) or shock waves. Surgery to remove the kidney stones. Follow these instructions at home: Medicines Take lmxb-kyg-guqyuup and prescription medicines only as told by your doctor. Ask your doctor if the medicine prescribed to you requires you to avoid driving or using machinery. Eating and drinking Drink enough fluid to keep your pee pale yellow. ?You may be told to drink at least 8 10 glasses of water each day. This will help you pass the stone. If told by your doctor, change your diet. You may be told to: ?Limit how much salt you eat. ?Eat more fruits and vegetables. ?Limit how much meat, poultry, fish, and eggs you eat. Follow instructions from your doctor about what you may eat and drink. General instructions Collect pee samples as told by your doctor. You may need to collect a pee sample: ?24 hours after a stone comes out. ?8 12 weeks after a stone comes out, and every 6 12 months after that. Strain your pee every time you pee. Use the strainer that your doctor recommends. Do not throw out the stone. Keep it so that it can be tested by your doctor. Keep all follow-up visits. You may need X-rays and ultrasounds to make sure the stone has come out. How is this prevented? To prevent another kidney stone: Drink enough fluid to keep your pee pale yellow. This is the best way to prevent kidney stones. Eat healthy foods. Avoid certain foods as told by your doctor. You may be told to eat less protein. Stay at a healthy weight. Where to find more information National Kidney Foundation (NKF): kidney.org Urology Care Foundation (F): urologyhealth.org Contact a doctor if: You have pain that gets worse or does not get better with medicine. Get help right away if: You have a fever or chills. You get very bad pain. You get new pain in your belly. You faint. You cannot pee. This information is not intended to replace advice given to you by your health care provider. Make sure you discuss any questions you have with your health care provider. Document Revised: 09/15/2022 Document Reviewed: 09/15/2022 [employer] Patient Education 2023 [email or web address]. Follow Up Care 09/17/2024 12:37:38 With:CHELO Choe APRN, Selma Benavides, NEREYDA, URL Address: When: Unknown Comments:[address] [facility] 10-09-2024 Note Patient Education Dermatology Lipoma A lipoma is a noncancerous (benign) tumor that is made up of fat cells. This is a very common type of soft-tissue growth. Lipomas are usually found under the skin (subcutaneous). They may occur in any tissue of the body that contains fat. Common areas for lipomas to appear include the back, arms, shoulders, buttocks, and thighs. Lipomas grow slowly, and they are usually painless. Most lipomas do not cause problems and do not require treatment. What are the causes? The cause of this condition is not known. What increases the risk? You are more likely to develop this condition if: ??? You are 40?60 years old. ??? You have a family history of lipomas. What are the signs or symptoms? A lipoma usually appears as a small, round bump under the skin. In most cases, the lump will: ??? Feel soft or rubbery. ??? Not cause pain or other symptoms. However, if a lipoma is located in an area where it pushes on nerves, it can become painful or cause other symptoms. How is this diagnosed? A lipoma can usually be diagnosed with a physical exam. You may also have tests to confirm the diagnosis and to rule out other conditions. Tests may include: ??? Imaging tests, such as a CT scan or an MRI. ??? Removal of a tissue sample to be looked at under a microscope (biopsy). How is this treated? Treatment for this condition depends on the size of the lipoma and whether it is causing any symptoms. ??? For small lipomas that are not causing problems, no treatment is needed. ??? If a lipoma is bigger or it causes problems, surgery may be done to remove the lipoma. Lipomas can also be removed to improve appearance. Most often, the procedure is done after applying a medicine that numbs the area (local anesthetic). ??? Liposuction may be done to reduce the size of the lipoma before it is removed through surgery, or it may be done to remove the lipoma. Lipomas are removed with this method to limit incision size and scarring. A liposuction tube is inserted through a small incision into the lipoma, and the contents of the lipoma are removed through the tube with suction. Follow these instructions at home: ??? Watch your lipoma for any changes. ??? Keep all follow-up visits. This is important. Where to find more information ??? OrthoInfo: orthoinfo.aaos.org Contact a health care provider if: ??? Your lipoma becomes larger or hard. ??? Your lipoma becomes painful, red, or increasingly swollen. These could be signs of infection or a more serious condition. Get help right away if: ??? You develop tingling or numbness in an area near the lipoma. This could indicate that the lipoma is causing nerve damage. Summary ??? A lipoma is a noncancerous tumor that is made up of fat cells. ??? Most lipomas do not cause problems and do not require treatment. ??? If a lipoma is bigger or it causes problems, surgery may be done to remove the lipoma. ??? Contact a health care provider if your lipoma becomes larger or hard, or if it becomes painful, red, or increasingly swollen. These could be signs of infection or a more serious condition. This information is not intended to replace advice given to you by your health care provider. Make sure you discuss any questions you have with your health care provider. Document Revised: 02/10/2022 Document Reviewed: 02/10/2022 [employer] Patient Education ? 2023 [email or web address]. Urology Kidney Stones Kidney stones are rock-like masses that form inside of the kidneys. Kidneys are organs that make pee (urine). A kidney stone may move into other parts of the urinary tract, including: ??? The tubes that connect the kidneys to the bladder (ureters). ??? The bladder. ??? The tube that carries urine out of the body (urethra). Kidney stones can cause very bad pain and can block the flow of pee. The stone usually leaves your body through your pee. A doctor may need to take out the stone. What are the causes? Kidney stones may be caused by: ??? Too much calcium in the body. This may be caused by too much parathyroid hormone in the blood. ??? Uric acid crystals in the bladder. The body makes uric acid when you eat certain foods. ??? Narrowing of one or both of the ureters. ??? A kidney blockage that you were born with. ??? Past surgery on the kidney or the ureters. What increases the risk? You are more likely to develop this condition if: ??? You have had a kidney stone in the past. ??? Other people in your family have had kidney stones. ??? You do not drink enough water. ??? You eat a diet that is high in protein, salt (sodium), or sugar. ??? You are very overweight (obese). What are the signs or symptoms? Symptoms of a kidney stone may include: ??? Pain in the side of the belly, right below the ribs. Pain usually spreads to the groin. ??? Needing to pee often or right away. ??? Pain when peeing. (more content not included)... [facility] 09-30[facility]24 Note HNO ID: [id number] Author: MARGOT LIMON APRN.[employer]SISTANT PLANT CONTROLLER Service: ? Author Type: Nurse Practitioner Type: Progress Notes Filed: 09/30/2024 10:24 Note Text: NAME: Leana Tran CLINIC NO.: [id number] DATE OF SERVICE: September 30, 2024 (Sonam) [...] basis with min (more content not included)... [facility] 09-30-2024 History of Present illness Narrative Images from the original note were not included. 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 REMOVAL GALLBLADDER TUBAL LIGATION HX Social History Tobacco Use Smoking status: Never Passive exposure: Past Smokeless tobacco: Never Vaping Use Vaping status: Never Used Substance Use Topics Alcohol use: Not Currently Drug use: Not Currently FAMILY HISTORY Problem Relation Age of Onset Diabetes Mother uncontrolled Hypertension Mother Heart Attack Mother First NC at age 51 Cardiomyopathy Mother at age [...] which included preparing to see the patient, [id number] patient care, completing clinical documentation, obtaining and/or reviewing separately obtained history, performing a medically appropriate examination, counseling and educating the patient/family/caregiver, communicating with other HCPs (not separately reported), independently interpreting results (not separately reported), and communicating results to the patient/family/caregiver. Margot Limon APRN, WORKSITE WELLNESS PRACTITIONER-C, [facility] Hematology and Oncology Services Provided at: [place], [place] CC: Cas Cronin documented in this encounter [facility] 09-25-2024 History of Present illness Narrative [...] 2 views right documented in this encounter [facility] 09-08-2024 Evaluation note Diagnosis Onset Date Resolution Right forearm injury acute Augu 2024 11:37am [facility] Work Phone: [phone] History of Present illness Narrative* Abimbola Saucedo - 08/22/2024 10:30 AM EDT Explained policies and procedures of an echocardiogram/doppler study. 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 Hx Cesar autoimmune thyroid disease, celiac disease. She underwent an implantable loop recorder for nursing home cardiac rhythm monitoring due to syncope in [...] Telehealth Audio/video Visit The visit was conducted [id number] with the use of audio and video technology using HIPAA approved Mobile Complete WebEX between patient and the provider for [...] Clinic Nurse Practitioner Division of Cardiovascular Medicine [facility] 08-11-2024 Miscellaneous Notes* Telephone Encounter - Alina Garcia CMA - 08/11/2024 11:33 AM EDT LAST OV 07/01/2024 NEXT OV 12/26/2024 [facility] encounter Note* Telephone Encounter - Alina Garcia CMA - 08/11/2024 11:33 AM EDT LAST OV 07/01/2024 NEXT OV 12/26/2024 [facility]07-07[facility]25 History of Present illness Narrative* Cas [...] hyperglycemia, without long-term current use of insulin ([facility]) Not checking BS and due for A1C. [...] TSH Comprehensive metabolic panel documented in this encounterTenet St. [id number] History of Present illness Narrative* PONCE Gerardo [...] Examined Right arm Examined Patient wearing nail yi, Denies dark streaks under finger nails, Denies [...] Next Visit: 1 year documented in this encounterTenet St. [id number] History of Present illness Narrative* Marni Flowers APRN-ASSISTANT PLANT CONTROLLER - 07/01/2024 9:00 AM EDT Subjective: Patient [...] She is a patient with [facility] Neurology. History of classic migraine with [...] not exercise regularly. She has three children (2005, 2006, and 2008). She had a hysterectomy. 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 Current Visit: Seen in June 2024, she presents for a [facility] follow up visit. She logged on and consents to telehealth services. She verifies she is in [place]. She feels that her headaches have been [...] pain 1995 Bradycardia Chest pain Clotting disorder ([facility]) 1984 COVID Depression Diabetes mellitus ([facility]) Diabetes mellitus type 2, controlled ([facility]) Eczema 2006 Elevated [...] Resource Strain: Medium Risk (04/08/2023) Re[facility] from [facility] Overall Financial Resource Strain (CARDIA) Difficulty of Paying Living Expenses: Somewhat hard Food Insecurity: No Food Insecurity (11/22/2023) Hunger Screening Food Insecurity - Worry: Never True Food Insecurity - Inability: Never True Transportation Needs: No Transportation Needs (04/08/2023) Received from [facility] PRAPARE - Transportation Lack of Transportation (Medical): No Lack of Transportation (Non-Medical): No Physical Activity: Insufficiently Active (04/08/2023) Received from [facility] Exercise Vital Sign Days of Exercise per Week: 4 days Minutes of Exercise per Session: 20 min Stress: No Stress Concern Present (04/08/2023) Received from [facility] [place] [facility] [employer] [facility] - Occupational Stress Questionnaire Feeling of Stress : Only a little Social Connections: Unknown (04/08/2023) Received from [facility] Social Connection and Isolation Panel [NHANES] Frequency of Communication with Friends and Family: More than three times a week Frequency of Social Gatherings with Friends and Family: Once a week Attends Nondenominational Services: Patient declined Active Member of Clubs or Organizations: Patient declined Attends Club or Organization Meetings: Patient declined Marital Status: Interpersonal Safety: Not At Risk (01/10/2023) Received from [facility] Humiliation, Afraid, Rape, and Kick questionnaire Fear of Current or Ex-Partner: No Emotionally Abused: No Physically Abused: No Sexually Abused: No Housing Instability: Patient Declined (04/08/2023) Received from [facility] Housing Stability Vital Sign Unable to Pay [...] was reviewed by Marni Flowers APRN-MACY. Objective: There were no vitals taken for this visit. Physical Exam: Mental Status: Orientation: Oriented to person, place and time. March 02, 2021, no idea what day of the week it is. [facility] in [place]--Neurology. Level of consciousness: alert. Knowledge: good and consistent with education. Intact short-term memory and intact long-term memory. Vocabulary is normal. 01/11/41=no idea 10/16/2000= the twin towers in [place] fell down because a plane hit them. [...] dorsiflexors: 4/5 Left foot dorsiflexors: 4/5 Right carriage rider strength: WeakMild generalized weakness Fasciculations: None Myotonia: [...] telehealth services. She verifies she is in [place]. 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 Call the office at [phone] or send a DVDPlay message if you develop any of these problems. #9. Ubrelvy 100 mg tablets. Take 1 tablet at the onset of a headache. You can repeat this once 2 hours later. Do not take more than 2 doses in 24[place] [id number] to activate co-pay card. #10. Prednisone 20 mg tablets. Take 4 tablets (2 +2) for 5 days with food and a low sodium diet. This can cause upset stomach, mood swings, irritability, weight gain, susceptibility to infections, etc. #11. Return for follow-up in 6 months (December 26, 2024 at 10:15 AM), earlier if needed. --[address] [place] [address] Total time spent was 20 minutes: Preparing to see the patient (e.g., review of tests) Obtaining and/or reviewing separately obtained history Performing a medically appropriate examination and/or evaluation Counseling and educating the patient/family/caregiver Ordering medications, tests, or procedures Referring and communicating with other health child care nurse (not separately reported) Documenting clinical information in the electronic or other health record Independently interpreting results (not separately reported) and communicating results to the patient/family/caregiver Care coordination (not separately reported) - Marni Flowers DNP, DEX 07/01/24 9:13 AM DEX [place] 01/02/24 1034 DEX [place] 07/01/24 0913 documented in this encounterMem[facility]27[facility] Instructions* Patient Instructions* DEX Oleary - [...] other cognitive dysfunction. Call the office at [phone] or send a DVDPlay message if you develop any of these problems. #9. Ubrelvy 100 mg tablets. Take 1 tablet at the onset of a headache. You can repeat this once 2 hours later. Do not take more than 2 doses in 24[place] [id number] to activate co-pay card. #10. Prednisone 20 mg tablets. Take 4 tablets (2 +2) for 5 days with food and a low sodium diet. This can cause upset stomach, mood swings, irritability, weight gain, susceptibility to infections, etc. #11. Return for follow-up in 6 months (December 26, 2024 at 10:15 AM), earlier if needed. --[address] [place] [address] documented in this encounterMemorial Health [facility]04-14-2025 Telephone encounter Note* Telephone Encounter - Cas Dowell MD - 05/19/2024 11:49 AM EDT New script sent. [facility] [id number] Miscellaneous Notes* Telephone Encounter - Cas Dowell MD - 05/19/2024 11:49 AM EDT New script sent. * Telephone Encounter - Lorene Perdomo MA - 05/19/2024 9:17 AM EDT Patient sent message, states insurance is no longer covering onglyza, needs new script for [email or web address] documented in this encounterTenet St. [id number] Telephone encounter Note* Telephone Encounter - Lorene Perdomo MA - 05/19/2024 9:17 AM EDT Patient sent message, [facility] insurance is no longer covering onglyza, needs new script for [email or web address].[email or web address] [id number] History of Present illness Narrative* Cas Dowell [...] 38 y.o. female who presents for Follow-up ([facility] er f/up/Covid + 02/20/24 /Head feel funny [...] (Deltasone) 10 MG tablet documented in this encounterTenet St. [id number] History of Present illness Narrative* Cas Dowell [...] - 02/11/2024 10:35 AM ESTAssociated Problem(s): Chronic imhg-ENXXB-07 syndrome No change in symptoms and monitor. [...] (BMI) of 37.0 to 37.9 in adult ([facility]) Weight loss indicated * Cas [...] and albuterol PRN which helps. Seen by digital imager and added spiriva. PFTs abnormal. Following with [...] hyperglycemia, without long-term current use of insulin ([facility]) - Primary Reports BS controlled and due for A1C. Stick to ADA diet and limit carbs. Relevant Medications sAXagliptin (Onglyza) 5 MG tablet Other Relevant Orders Hemoglobin A1c Gastroesophageal reflux disease No symptoms Moderate persistent asthma without complication ([facility]) Breathing stable with symbicort and continue. Use albuterol PRN. Relevant Medications levalbuterol (Xopenex HFA) 45 MCG/ACT inhaler Chronic rdxc-UYKUD-38 syndrome No change in symptoms and monitor. Edema of both legs Edema stable and elevate legs PRN. Class 2 severe obesity due to excess calories with serious comorbidity and body mass index (BMI) of37.0 to 37.9 in adult ([facility]) Weight loss indicated documented in this encounterTenet St. [id number] Miscellaneous Notes* Telephone Encounter - Camille James - 01/02/2024 12:33 PM ESTSummary: Sample Medication Marni gave 3 Ajovy samples with a lot number of [id number] and expiration date of 07/2024. Please attachinformation to the patients chart. documented in this encounterMemorial [facility]11-27-2024 Telephone encounter Note* Telephone Encounter - Camille James - 01/02/2024 12:33 PM ESTSummary: Sample Medication Marni gave 3 Ajovy samples with a lot number of [id number] and expiration date of 07/2024. Please attachinformation to the patients chart. [facility]11-27-[facility]24 History of Present illness Narrative* DEX Oleary - 01/02/2024 10:30 AM EST Subjective: Patient [...] She is a patient with [facility]. History of classic migraine with [...] She is active with a psychiatrist (Dr. Thmoas) and her medications have been adjusted. She [...] hysterectomy. 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 She last [...] pain 1995 Bradycardia Chest pain Clotting disorder ([facility]) 1984 COVID Depression Diabetes mellitus ([facility]) Diabetes mellitus type 2, controlled ([facility]) Eczema 2006 Elevated [...] Resource Strain: Medium Risk (04/08/2023) [facility], [facility] Overall Financial Resource Strain (CARDIA) Difficulty of Paying Living Expenses: Somewhat hard Food Insecurity: No Food Insecurity (11/22/2023) Hunger Screening Food Insecurity - Worry: Never True Food Insecurity - Inability: Never True Transportation Needs: No Transportation Needs (04/08/2023) Received from [facility] PRAPARE - Transportation Lack of Transportation (Medical): No Lack of Transportation (Non-Medical): No Physical Activity: Insufficiently Active (04/08/2023) Received from [facility] Exercise Vital Sign Days of Exercise per Week: 4 days Minutes of Exercise per Session: 20 min Stress: No Stress Concern Present (04/08/2023) Received from [facility] [place] [facility] [employer] [facility] - Occupational Stress Questionnaire Feeling of Stress : Only a little Social Connections: Unknown (04/08/2023) Received from [facility] Social Connection and Isolation Panel [...] At Risk (01/10/2023) Received from [facility], [facility] Humiliation, Afraid, Rape, and Kick questionnaire Fear of Current or Ex-Partner: No Emotionally Abused: No Physically Abused: No Sexually Abused: No Housing Instability: Patient Declined (04/08/2023) Received from [facility] Housing Stability Vital Sign Unable [...] of the week it is. [facility] in [place]--Neurology. Level of consciousness: alert. Knowledge: good and consistent with education. Intact short-term memory and intact long-term memory. Vocabulary is normal. 01/11/41=no idea 10/16/2000= the twin towers in [place] fell down because a plane hit them. [...] dorsiflexors: 4/5 Left foot dorsiflexors: 4/5 Right carriage rider strength: WeakMild generalized weakness Fasciculations: None Myotonia: [...] other cognitive dysfunction. Call the office at [phone] or send a DVDPlay message if you develop any of these problems. #9. Ubrelvy 100 mg tablets. Take 1 tablet at the onset of a headache. You can repeat this once 2 hours later. Do not take more than 2 doses in 24-[place] [id number] to activate co-pay card. #10. Return for follow-up in 6 months, earlier if needed. Total time spent was 20 minutes: Preparing to see the patient (e.g., review of tests) Obtaining and/or reviewing separately obtained history Performing a medically appropriate examination and/or evaluation Counseling and educating the patient/family/caregiver Ordering medications, tests, or procedures Referring and communicating with other health child care nurse (not separately reported) Documenting clinical information in the electronic or other health record Independently interpreting results (not separately reported) and communicating results to the patient/family/caregiver Care coordination (not separately reported) - Marni Flowers DNP, RIB BUILDER-ASSISTANT PLANT CONTROLLER 01/02/24 10:34 AM DEX [place] 01/02/24 1034 documented in this encounterSelect Medical Specialty Hospital - ColumbusKontagent11-27-2024 Instructions* Patient Instructions* DEX Oleary - 01/02/2024 [...] other cognitive dysfunction. Call the office at [phone] or send a DVDPlay message if you develop any of these problems. #9. Ubrelvy 100 mg tablets. Take 1 tablet at the onset of a headache. You can repeat this once 2 hours later. Do not take more than 2 doses in 24-[place] [id number] to activate co-pay card. #10. Return for follow-up in 6 months, earlier if needed. documented in this encounterMemorial Health [facility]10-31-2024 Miscellaneous Notes* Telephone Encounter - Pat Heck - 12/06/2023 6:29 AM EDTSummary: Med refill request Jefry Douglas. Pat documented in this encounterMemorial Health System [facility]10-31-2024 Telephone encounter Note* Telephone Encounter - Pat Heck - 12/06/2023 6:29 AM EDT Summary: Med refill request Jefry Douglas. Pat [facility]10-17-2024 History of Present illness Narrative* Akila [...] nostril once daily., Disp: , Rfl: fremanezumab-vfrm ([employer] 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) 225 mg/1.5 mL, INJECT 1.5 ML [...] pain 1995 Bradycardia Chest pain Clotting disorder ([facility]) 1983 COVID Depression Diabetes mellitus ([facility]) Diabetes mellitus type 2, controlled ([facility]) Eczema 2006 Elevated [...] TO CLINIC: 1 year documented in this encounterMemorial Health [facility]10-15-2024 History of Present illness Narrative* Akila Koch LPN - 11/20/2023 11:20 AM EDT Reason for Appointment: Patient ID: Leana Tran is a 37 y.o. female who presents for [facility] Visit Patient presents today for Annual [...] Diagnosis Date Noted PTSD (post-traumatic stress disorder) ([facility]) 12/24/2020 Allergic reaction to contrast dye 07/25/2021 Chronic allergic rhinitis due to pollen 12/22/2015 Anxiety 03/02/2021 Arachnoid cyst of pituitary gland 04/07/2015 Aspirin allergy 02/10/2021 Autonomic dysfunction 02/10/2021 Bleeding disorder ([facility]) 02/23/2014 Symptomatic bradycardia 12/24/2020 Cervicalgia 03/02/2021 Depression ([facility]) 12/24/2020 Type 2 diabetes mellitus with hyperglycemia, without long-term current use of insulin ([facility]) 12/24/2020 Diffuse pain 08/23/2021 Adverse food reaction 07/25/2021 Dyspareunia in female 01/12/2023 Gastroesophageal reflux disease 12/22/2015 Gross hematuria 01/12/2023 Hearing loss 12/22/2015 History of hysterectomy 02/10/2021 Hyperlipidemia ([facility]) 12/22/2015 Irritable bowel syndrome 12/22/2015 Memory difficulties 03/02/2021 Migraine without aura and without status migrainosus, not intractable ([facility]) 12/24/2020 Moderate persistent asthma without complication ([facility]) 07/25/2021 KATELIN (obstructive sleep apnea) 12/24/2020 Ovarian cyst 01/12/2023 Palpitations 10/20/2021 Decreased activity tolerance 08/23/2021 Chronic nles-KNDST-39 syndrome 03/02/2021 Primary hypothyroidism ([facility]) 12/22/2015 Qualitative platelet disorder ([facility]) 04/03/2022 Right inguinal hernia 01/12/2023 [...] 12/22/2015 Adenovirus infection 01/10/2022 Exacerbation of asthma ([facility]) 01/08/2022 Asthma ([facility]) 12/22/2015 Blood pressure instability 05/24/2021 Chest pain 12/24/2020 Drug reaction 07/25/2021 Generalized headache 12/22/2015 Hypersomnia with sleep apnea 03/02/2021 Orthostatic intolerance 08/23/2021 Orthostatic lightheadedness 05/24/2021 RSV (respiratory syncytial virus infection) 01/10/2022 Stress incontinence 01/12/2023 Syncope and collapse 05/24/2022 Acute non-recurrent pansinusitis 04/09/2023 Past Medical History: Diagnosis Date Abdominal pain, generalized Abnormality of plasma protein, unspecified Anxiety and depression ([facility]) Arachnoid cyst Celiac disease ([facility]) Chronic sinusitis Deaf, right Edema, peripheral Hernia, abdominal Herpes zoster without complication History of cardiac monitoring History of thyroid nodule Hormone imbalance Hot flashes due to surgical menopause Hypothyroid ([facility]) Insomnia, persistent Medication reaction Metabolic syndrome Mild persistent asthma without complication ([facility]) Myoclonic jerking, massive Paresthesia Post-COVID syndrome POTS (postural orthostatic tachycardia syndrome) Seasonal allergic rhinitis due to pollen Urinary hesitancy HISTORY PAST MEDICAL HISTORY SOCIAL HISTORY Past Medical History: Diagnosis Date Abdominal pain, generalized Abnormality of plasma protein, unspecified deficiency (easy bleeder) Anxiety and depression ([facility]) Arachnoid cyst in brain (2016) Asthma ([facility]) Celiac disease ([facility]) Chronic sinusitis Deaf, right Depression ([facility]) Dyspareunia in female Edema, peripheral Gastroesophageal reflux disease Hernia, abdominal Herpes zoster without complication History of cardiac monitoring Pt currently has cardiac heart monitor 06/27/2022 History of hysterectomy History of thyroid nodule Hormone imbalance Hot flashes due to surgical menopause Hypothyroid ([facility]) Insomnia, persistent Medication reaction Metabolic syndrome Mild persistent asthma without complication ([facility]) Myoclonic jerking, massive Ovarian cyst Paresthesia Post-COVID syndrome POTS (postural orthostatic tachycardia syndrome) Right inguinal hernia Seasonal allergic rhinitis due to pollen Type 2 diabetes mellitus with hyperglycemia, without long-term current use of insulin ([facility]) Urinary hesitancy Vitamin D deficiency [...] CONTRAST OTHER SURGICAL HISTORY 2014 uterine ablation [place] LAP,CHOLECYSTECTOMY 2009 [place] LAPAROSCOPY W/LYSIS OF ADHESIONS 2010 SALPINGECTOMY Bilateral [...] nursing note reviewed. Exam conducted with a ad taker present. Vitals: Estimated body mass index is [...] Akila Koch LPN on behalf of: Rubens Glenroy, DO documented in this encounterTenet St. [id number] History of Present illness Narrative* Christy Painting [...] speak during these episodes. She works in [employer] at [employer]. She was blue and her co-workers thought [...] up in the speech therapy Clinic in [facility]. As she has a history of [...] Symbicort with spacer. Add Spiriva [facility] in [place]. Technique. We agreed she would use Symbicort [...] spirometry and skin testing. documented in this encounterTenet St. [id number] History of Present illness Narrative* Cas Dowell MD - 10/23/2023 2:04 PM EDT The patient needs a letter stating she requires a medical exception from the influenza vaccination due to a history of anaphylactic reactions to vaccines. documented in this encounterTenet St. 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 Hx Cesar autoimmune thyroid disease, celiac disease. 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 Chief Complaint: OI/ syncope. ILR Only a few episodes of near syncope since seen, blackouts . 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 High fasting glucose. May [...] Telehealth Visit: 10/10/2023 The visit was conducted [id number] with the use of audio and video technology using HIPAA approved NotoriousEX between patient and the provider for a [...] to get long acting preparation. 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 2. Syncope. Chronic. Stable. No syncope. Presyncope. Improved with day shift. 3. ILR. Chronic. Stable. No arrhythmia. Device with good function. Macrina Wadsworth APRN PhD [facility] Nurse Practitioner Division of Cardiovascular Medicine [facility] 10-10-2023 History of Present illness Narrative* Cas Dowell MD - 10/10/2023 9:42 AM EDTAssociated Problem(s): Type 2 diabetes mellitus with hyperglycemia, without long-term current use of insulin ([facility]) Reports BS controlled and A1C 5.6. Stick to ADA diet and limit carbs. Insulin elevated and stop januvia. Start ozempic. * Cas Dowell MD - 10/10/2023 9:42 AM EDTAssociated Problem(s): Moderate persistent asthma without complication ([facility]) Breathing stable with symbicort and continue. Use albuterol PRN. * Cas Dowell MD - 10/10/2023 9:42 AM EDTAssociated Problem(s): Edema of both legs Edema stable and elevate legs PRN. * Cas Dowell MD - 10/10/2023 9:42 AM EDTAssociated Problem(s): Chronic itrk-EJNVB-37 syndrome No change in symptoms and monitor. [...] hyperglycemia, without long-term current use of insulin ([facility]) - Primary Reports BS controlled and A1C 5.6. Stick to ADA diet and limit carbs. Insulin elevated and stop januvia. Start ozempic. Relevant Medications semaglutide (Ozempic, 0.25 or 0.5 MG/DOSE,) 2 MG/1.5ML solution pen-injector Moderate persistent asthma without complication (CMS/HCC) Breathing stable with symbicort and continue. Use albuterol PRN. Chronic [id number] syndrome No change in symptoms and monitor. Edema of both legs Edema stable and elevate legs PRN. documented in this encounterTenet St. [id number] Instructions* Patient Instructions* Fuentes Amaral MD - 10/01/2023 10:04 AM EDT Continue Amicar prior to dental extraction FFP for major surgery. RTC in 12 months - cbc, cmp documented in this encounterMercy Health Willard Hospital08-26-2024 History of Present illness Narrative* Fuentes Amaral MD - 10/01/2023 9:45 AM EDT Images from the original note were not included. 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 [facility] She does not know her family [...] date: PAST SURGICAL HISTORY OF Comment: Insertable Medical Record Consultant No date: REMOVAL GALLBLADDER No date: TUBAL LIGATION HX Social History Tobacco Use Smoking status: Never Passive exposure: Past Smokeless tobacco: Never Vaping Use Vaping status: Never Used Substance Use Topics Alcohol use: Not Currently Drug use: Not Currently FAMILY HISTORY Problem Relation Age of Onset Diabetes Mother uncontrolled Hypertension Mother Heart Attack Mother First NC at age 51 Cardiomyopathy Mother at age [...] which included preparing to see the patient, kjhg-ro-bjeo patient care, completing clinical documentation, performing a medically appropriate examination, ordering medications, tests, or procedures, and communicating results to the patient/fam jair/caregiver. Fuentes Amaral MD, CPE Hematology and Oncology Services Provided at: [place], [place] Scribe Attestation: This note was scribed [...] Cas Cronin documented in this encounterMercy Health Willard Hospital08-21-2024 History of Present illness Narrative* Cas Dowell MD - 09/26/2023 10:10 AM EDTAssociated Problem(s): Allergic reaction Recent reaction and improved with treatment. Reactions getting worse and refer to digital imager. * Cas Dowell MD - 09/26/2023 9:15 [...] and faster symptom onset. Requests referral to digital imager. Review of Systems Respiratory: Negative for cough, [...] treatment. Reactions getting worse and refer to digital imager. Relevant Orders Ambulatory referral to Allergy documented in this encounterTenet St. [id number] History of Present illness Narrative* Marni Flowers, RIB BUILDER-ASSISTANT PLANT CONTROLLER - 07/05/2023 3:30 PM EDT Subjective: Patient [...] She is a [facility]. History of classic migraine with [...] hysterectomy. 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 Current Visit: Seen in June 2023, she presents for a VIDYO visit. She logged in and consents to telehealth services. She notes that since the beginning of the year, her migraines have been worse. 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 She has found that the lack [...] pain 1995 Bradycardia Chest pain Clotting disorder ([facility]) 1984 COVID Depression Diabetes mellitus ([facility]) Diabetes mellitus type 2, controlled ([facility]) Eczema 2006 Elevated [...] Strain: Medium Risk (04/08/2023) [facility]ceived from [facility] Overall Financial Resource Strain (CARDIA) Difficulty of Paying Living Expenses: Somewhat hard Food Insecurity: No Food Insecurity (05/08/2023) Hunger Screening Food Insecurity - Worry: Never True Food Insecurity - Inability: Never True Transportation Needs: No Transportation Needs (04/08/2023) Received from [facility] PRAPARE - Transportation Lack of Transportation (Medical): No Lack of Transportation (Non-Medical): No Physical Activity: Insufficiently Active (04/08/2023) Received from [facility] Exercise Vital Sign Days of Exercise per Week: 4 days Minutes of Exercise per Session: 20 min Stress: No Stress Concern Present (04/08/2023) Received from [facility] - Occupational Stress Questionnaire Feeling of Stress : Only a little Social Connections: Unknown (04/08/2023) Received from [facility] Social Connection and Isolation Panel [...] At Risk (01/10/2023) Received from [facility] [place] Safety & Environment Within the last [...] Instability: Patient Declined (04/08/2023) Received from [facility] Housing Stability Vital Sign Unable to Pay for Housing in the Last Year: Patient declined Number of Places Lived in the Last Year: 1 In the last 12 months, was there a time when you did not have a steady place to sleep or slept in located [facility] (including now)?: Patient declined Family History Problem [...] of the week it is. [facility] in [place]--Neurology. Level of consciousness: alert. Knowledge: good and consistent with education. Intact short-term memory and intact long-term memory. Vocabulary is normal. 01/11/41=no idea 10/16/2000= the twin towers in [place] fell down because a plane hit them. [...] dorsiflexors: 4/5 Left foot dorsiflexors: 4/5 Right carriage rider strength: WeakMild generalized weakness Fasciculations: None Myotonia: [...] post-, etc again. She anticipates moving to [place] in August or September. She has been working at least 24-40 hours a week. She is doing 12 hour shifts (unless she is picking up extra). 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 She has found that the lack [...] other cognitive dysfunction. Call the office at [phone] or send a DVDPlay message if you develop any of these problems. #9. Ubrelvy 100 mg tablets. Take 1 tablet at the onset of a headache. You can repeat this once 2 hours later. Do not take more than 2 doses in 24-[place] [address] to activate co-pay card. #10. Return for [...] procedures Referring and communicating with other health child care nurse (not separately reported) Documenting clinical information in the electronic or other health record Independently interpreting results (not separately reported) and communicating results to the patient/family/caregiver Care coordination (not separately reported) - Marni Flowers DNP, DEX 07/05/23 2:16 PM DEX Oleary 07/05/23 1417 documented in this encounterMemorial [facility]05-30-[facility]24 Instructions* Patient Instructions* DEX Oleary - 07/05/2023 [...] other cognitive dysfunction. Call the office at [phone] or send a DVDPlay message if you develop any of these problems. #9. Ubrelvy 100 mg tablets. Take 1 tablet at the onset of a headache. You can repeat this once 2 hours later. Do not take more than 2 doses in 24-hours[place] [address] to activate co-pay card. #10. Return for follow-up in 6 months (January 02, 2024 at 10:15 AM), earlier if needed. --increase zonisamide back to 200 mg, if headaches do not decrease, switch from Ajovy to Qulipta after 1 month documented in this encounterPorter Medical CenterSendah Direct [id number] History of Present illness Narrative* DEX Jameson - 05/08/2023 8:45 AM EDT REASON FOR [...] has been to referred to [facility] for symptoms from COVID-19. Dizzy and [...] nostril once daily., Disp: , Rfl: fremanezumab-vfrm ([employer] 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) 225 mg/1.5 mL, Inject 1.5 mL [...] pain 1995 Bradycardia Chest pain Clotting disorder ([facility]) 1984 COVID Depression Diabetes mellitus ([facility]) Diabetes mellitus type 2, controlled ([facility]) Eczema 2006 Elevated [...] DEX Jameson 05/08/23 0902 documented in this encounterMemorial Health [facility]08-28-2023 Instructions* Patient Instructions* Fuentes Amaral MD - 10/02/2022 9:51 AM EDT Continue Amicar prior to dentist appointment. 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 Fuentes Amaral MD, CPE Hematology and Oncology Services Provided at: [place], [place] CC: Cas Cronin documented in this encounterMercy Health Willard Hospital08-01-2023 Hospital Discharge instructions Patient Education 09/05/2022 09:06:17 Kidney Stones, Udlr-pv-Pjtd Kidney Stones Kidney stones are rock-like masses [...] Follow these instructions at home: Medicines Take lohm-dwy-txpfsrt and prescription medicines only as told by [...] provider. Document Revised: 09/26/2021 Document Reviewed: 09/26/2021 [employer] Patient Education 2022 Rue89. Follow Up Care 02/28/2022 09:04:41 With:LORAINE BRUNHAM PA-C, URL Address: [address] [place] [address] When: Unknown [facility] 03-29-2023 Miscellaneous Notes* Telephone Encounter - Yury Collins MA - 05/03/2022 11:43 AM EDT Images from the original note were not included. documented in this encounterMercy Health Willard Hospital03-22-2023 History of Present illness Narrative* Bhargavi Ramesh PA-C - 04/26/2022 1:00 PM EDT Headache Center - Follow up Virtual Visit During this COVID-19 pandemic, patient's headache clinic evaluation was scheduled as a virtual visit using the following platform Zoom - patient currently located in [place] Leana Tran was identified by name and [...] the patient or their legal sales representative sales manager has been informed of therisks and benefits [...] thrombosis. Unremarkable MRA brain and MRA neck. Vacuum Caster: ROBER Transcribe Date/Time: Mar 31 2016 2:40P [...] change which could potentially contribute to headache. Vacuum Caster: [facility] Transcribe Date/Time: Jun 27 2021 3:07P [...] # 1.10 - 3.70 k/uL 1.67 Absolute [place] # 0.10 - 1.20 k/uL 0.37 Absolute Eos # 0.00 - 0.44 k/uL 0.19 Basophils Absolute 0.00 - 0.20 k/uL 0.04 Absolute Immature Granulocyte 0.00 - 0.30 k/uL 0.04 Review of Systems: Review of system: unchanged from the previous visit (sleep patterns, mood, energy, appetite, stress, exercising). Physical Examination: Vital Signs: [facility] 2015 General: well appearing, in no acute distress, alert Pain Behaviors: no pain behaviors observed Neurological: Mental Status: Alert and oriented to person, place and time. Affect is normal. Speech is spontaneous and fluent without dysarthria. Short and vermin exterminator memory, cognition and general fund of knowledgeare [...] Bhargavi Ramesh PA-C Headache Section [facility] April 26, 2022 documented in this encounterMercy Health Willard Hospital03-13-2023 Instructions* Patient Instructions* Fuentes Amaral MD - 04/17/2022 5:31 PM EDT Keep prior appointment September documented in this encounterMercy Health Willard Hospital03-13-2023 History of Present illness Narrative* Fuentes [...] Amaral MD documented in this encounterMercy Health Willard Hospital02-27-2023 Instructions* Patient Instructions* Fuentes Amaral MD - 04/03/2022 11:06 AM EST Platelet electron microscopy pending drawn Call results when available - anticipate 2 weeks Consider functional medicine referral for DM and PCOS Keep appointment with Dr. Stephon Cronin's group for POTS Trial of Amicar prior to dentist appointment. 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 Fuentes Amaral MD, CPE Hematology and Oncology Services Provided at: [place], [place] CC: Cas Cronin documented in this encounterMercy Health Willard Hospital02-27-2023 Nurse Note* Elizabeth Rodriges MA - 04/03/2022 10:43 AM EST Patient is still bruising. Elizabeth Rodriges MA documented in this encounterMercy Health Willard Hospital02-27-2023 Miscellaneous Notes* Telephone Encounter - Marlon Plaza - 04/03/2022 9:32 AM EST Images from the original note were not included. documented in this encounterMercy Health Willard Hospital02-14-2023 Miscellaneous Notes* Telephone Encounter - Manda León RN - 03/21/2022 10:43 AM EST Received call from pt stating she was not able to get her PLT lab test done in [place] d/t them no longer doing them on or fridays so she needs to move out her appt with Dr Salas so she has timeto try again to get lab done. Pt transferred to front office director to reschedule f/u appt. Manda León RN documented in this encounterMercy Health Willard Hospital01-24-2023 Hospital Discharge instructions Patient Education 02/28/2022 [...] reconstructed. Follow these instructions at home: Take qcjn-xnv-ebapdnn and prescription medicines only as told by [...] 02/18/2016 Document Revised: 09/04/2018 Document Reviewed: 09/04/2018 [employer] Patient Education LabPixies Follow Up Care 12/22/2021 14:08:59 With:TEJ HEREDIA, LORAINE Razo, URL Address: [address] [facility] [place] [address] When: Unknown [facility] 01-23-2023 History of Present illness Narrative* Tesfaye Whitman RPh - 02/27/2022 10:32 AM EST Refill Authorization Consent Leana Tan Marc was encountered by text or mychart message to obtain consent for pharmacist managed refill authorization. Patient gives consent to the authorization of prescriptions by a pharmacist. Tesfaye Whitman RPh 02/27/2022 documented in this encounterMercy Health Willard Hospital01-20-2023 Miscellaneous Notes* Telephone Encounter - Vikash Oreilly RN - 02/24/2022 3:15 PM EST PA submitted via covermymeds. Guilhermesushilasilvio LEANA MARC ([place]: [id number]) Your information has been submitted to [facility]. To check for an updated outcome later, reopen thisPA request from your dashboard. If [facility] has not responded to your request within 24 hours, contact [facility] at . If you think there may be a problem with your PA request, use our live chat feature at the bottom right. Vikash Oreilly RN February 24, 2022 3:16 PM documented in this encounterMercy Health Willard Hospital01-16-2023 Miscellaneous Notes* Telephone Encounter - Fuentes Amaral MD - 02/20/2022 8:50 AM EST Ok with me * Telephone Encounter - Manda León RN - 02/20/2022 8:43 AM EST Informed Lindsey of Dr Salas's response. Lindsey states that [facility] will only except if pt was drawn on pt was drawn on Sunday so they are sending it out today to [place], unless Dr Salas would like pt to come back in for a redraw so it can be sent to [facility]. Manda León RN * Telephone Encounter - Fuentes Amaral MD - 02/17/2022 5:23 PM EST Col[place] would be good. * Telephone Encounter - Manda León RN - 02/17/2022 4:03 PM EST Received call from Melodie at [facility] in [place] stating pt had her platelet transmission lab done there but it is a lab test that they send out to other labs and they wanted to know if Dr Salas has a preference on what lab they send it to d/t different labs running the test different ways. ZACH: Please advise. Manda León RN documented in this encounterMercy Health Willard Hospital01-13-2023 Miscellaneous Notes* Telephone Encounter - Loraine Lewis [facility] - 02/17/2022 9:45 AM EST Records faxed to Dr. Cronin. * Telephone Encounter - Sharon Hess - 02/17/2022 8:55 AM EST Pt would like referral sent to Stephon Cronin MD @ [facility]. Lauren, will you please fax records when order is signed? Demo in your box, thanks! * Telephone Encounter - Manda León RN - 02/17/2022 8:38 AM EST PSS: Please set pt up with referral to her preferred legal cashier. Thank you. Manda León RN * Telephone Encounter - Manda León RN - 02/16/2022 1:28 PM EST Received call from pt stating Dr Salas told her to see legal cashier but their office needs a referral. ZACH: Order pending, please review and sign. Manda León RN documented in this encounterMercy Health Willard Hospital01-09-2023 History of Present illness Narrative* Meena Grissom MD - 02/13/2022 8:28 PM EST Discussed with scheduling, appointment will be rescheduled. Patient logged in late- had technical issues with Zoom. 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 Fuentes Amaral MD, CPE Hematology and Oncology Services Provided at: [place], [place] CC: Cas oDwell documented in this encounterMercy Health Willard Hospital12-28-2022 Miscellaneous Notes* Telephone Encounter - Fanny Green LPN - 02/01/2022 10:42 AM EST Images from the original note were not included. documented in this encounterMercy Health Willard Hospital12-19-2022 Hospital Discharge instructions Patient Education 01/23/2022 [...] Up Care 12/22/2021 14:21:18 With:LORAINE BURNHAM Address: [address] [place] [address]. [place] [address] [facility] (1) When:6 weeks Comments:Call for followup appointment in about six weeks. As discussed, PONCE Hargrove can further follow upon the left kidney abnormality noted on the kidney ultrasound. 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 [facility]12-12-2022 History of Present illness Narrative* PONCE Chi-Dario - 01/16/2022 9:00 AM EST Headache Center - Follow up Virtual Visit During this COVID-19 pandemic, patient's headache clinic evaluation was scheduled as a virtual visit using the following platform Zoom - patient currently located in [facility] Marc was identified by name and [...] thrombosis. Unremarkable MRA brain and MRA neck. Vacuum Caster: ROBER Transcribe Date/Time: Mar 31 2016 2:40P [...] change which could potentially contribute to headache. Vacuum Caster: ROBER Transcribe Date/Time: Jun 27 2021 3:07P [...] spontaneous and fluent without dysarthria. Short and vermin exterminator memory, cognition and general fund of knowledgeare [...] Bhargavi Ramesh PA-C Headache Section [facility] January 16, 2022 documented in this encounterMercy Health Willard Hospital11-28-2022 History of Present illness Narrative* Jenny Borden - 01/02/2022 4:23 AM EST Sleep Study Check-In Documentation Date: January 02, 2022 Name: Leana Tran Patient was accompanied by Self. Location: [place] Latex allergy: Yes Tape allergy: No Current medications were reviewed with the patient:Yes Sleep aid taken by patient for the sleep study: Plessis of sleep aid: Not Applicable Procedure was [...] Jenny Borden documented in this encounterMercy Health Willard Hospital11-16-2022 Evaluation + Plan note Diagnostic Tests Pending * Urine Cytology ([facility]) 12/21/21 [facility] 11-16-2022 Hospital Discharge instructions Patient Education 2021 [...] Follow these instructions at home: Medicines Take eacq-gqx-jvspdcb and prescription medicines only as told by [...] or the blood stops without treatment. Take czzo-ecx-tfqyyxh and prescription medicines only as told by your health care provider. Drink enough fluid to keep your urine clear or pale yellow. This information is not intended to replace advice given to you by your health care provider. Make sure you discuss any questions you have with your health care provider. Document Released: 01/22/2006 Document Revised: 06/18/2019 Document Reviewed: 02/24/2017 [employer] Patient Education 2020 Rue89. Follow Up Care 11/28/2021 10:05:42 With:[facility] Address: [address] [place] [address] Business (1) When: Unknown Comments:our tubular splitting machine tender will be contacting you for follow-up [facility]2022 Miscellaneous Notes* Telephone Encounter - CARINE Carrillo - 12/20/2021 10:01 AM EST Results left on patient voicemail. Leana Tran's bleeding disorders panel through [employer] was non- diagnostic or negative for a pathogenic variant. 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 This is a common polymorphism in the general population present in ~10% of individuals of white ancestry and ~1/3 of those of [place] ancestry. This polymorphism is not expected to contribute to disease risk for the patient. Please see [employer] message for further discussion. CARINE Carrillo Licensed, Certified Genetic Counselor Epic CC: Dr. Fuentes Craig documented in this encounterMercy Health Willard Hospital11-10-2022 History of Present illness Narrative* eKira Harper - 12/15/2021 7:41 AM EST ACTIGRAPHY DEVICE # [id number] Date shipped out 12/15/2021 [employer] MAIL OUT TRACKING NUMBER [id number] [employer] RETURN TRACKING NUMBER [id number], Amber documented in this encounterMercy Health Willard Hospital10-28-2022 History of Present illness Narrative* Ofelia [...] with Dr. Una Oliver. Procedure Start Time: 08 Height 162.6 [...] RN; Ofelia Allen RN Procedure Finish Time: 09 documented in this encounterMercy Health Willard Hospital10-27-2022 Miscellaneous Notes* Telephone Encounter - Lindsey [...] 8:33 PM documented in this encounterMercy Health Willard Hospital10-14-2022 Instructions* Patient Instructions* Fuentes Amaral MD - 11/18/2021 2:09 PM EDT 1. RTC and Repeat exam in 3 months - no labs 2. Review platelet genetics on return. 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 Fuentes Amaral MD, CPE Hematology and Oncology Services Provided at: [place], [place] CC: Cas Dowell documented in this encounterMercy Health Will[facility] Hospital10-12-2022 Instructions* Patient Instructions* Meena Grissom MD [...] depending on your insurance coverage. Contact your [employer] (DME) company for new supplies as needed. Encouraged increased CPAP compliance -PAP titration polysomnogram requested to assess optimum PAP therapy for KATELIN -PAP nap procedure requested to help address mask interface issues To schedule your sleep study please call the [facility] at [phone]. The [phone] phone number will be answered by the [...] If you work rotating shifts, ask your operations section manager to schedule a natural, clockwise rotation. [...] alertness. 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 Exposure to bright light on the job can improve alertness during opera singer work. Arrange for someone to pick you up after a opera singer, or take a bus or cab home. [...] for insomnia. The cost is $40. Use www.[employer] which to access the [facility] website to purchase the program [...] provider and give them the CPT code: 66940 You will be asked to wear the [...] about your actigraphy device, please call the pv design and installation technician at: [phone]( During Hours: 8am-4:30pm) ? -Discussed pathophysiology of Sleep paralysis, and possible triggering factors which include sleep deprivation, untreated obstructive sleep apnea. Other possible etiologies include circadian shift work,anxiety disorders and medications. - Follow up in 2 months documented in this encounterMercy Health Willard Hospital10-12-2022 Miscellaneous Notes* Telephone Encounter - Zuleyka Pacheco RN - 11/16/2021 1:04 PM EDT Images from the original note were not included. * Telephone Encounter - Zuleyka Pacheco RN - 11/16/2021 1:03 PM EDT Images from the original note were not included. documented in this encounterMercy Health Willard Hospital10-12-2022 History of Present illness Narrative* Meena Grissom MD - 11/16/2021 8:59 AM EDT Images from the original note were not included. [facility] New Patient Evaluation [...] on CPAP , her physician is at [facility]. Has a Resmed device, uses it [...] or near accidents due to drowsy drivin [place] Sleepiness Scale 11/13/2021 Score 7 (No daytime [...] (Discontinued) PRIOR SLEEP STUDIES: Sleep centre at [place] (report not available at time of consultation) [...] uncontrolled Hypertension Mother Heart Attack Mother First NC at age 51 Cardiomyopathy Mother at age [...] If you work rotating shifts, ask your operations section manager to schedule a natural, clockwise rotation. [...] alertness. 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 Exposure to bright light on the job can improve alertness during opera singer work. Arrange for someone to pick you up after a opera singer, or take a bus or cab home. [...] for insomnia. The cost is $40. Use [employer] which to access the [facility] website to purchase the program [...] which included preparing to see the patient, [id number]-[id number] patient care, performing a medically appropriate examination, counseling and educating the patient/family/caregiver and ordering medications/devices. documented in this encounterMercy Health Willard Hospital10-11-2022 Miscellaneous Notes* Telephone Encounter - Fanny Green LPN - 11/15/2021 3:55 PM EDT Images from the original note were not included. documented in this encounterMercy Health Willard Hospital10-08-2022 History of Present illness Narrative* Fuentes [...] Amaral MD documented in this encounterMercy Health Willard Hospital10-03-2022 Miscellaneous Notes* Telephone Encounter - Landen Mahmood APRN.CNP - 11/07/2021 4:19 PM EDT Order for nebulizer supplies resent to [facility]. Call to them inquiring about any additional information they may need. Landen Mahmood APRN.MACY documented in this encounterMercy Health Willard Hospital10-03-2022 Miscellaneous Notes* Telephone Encounter - Lindsey Hassan RN - 11/07/2021 3:29 PM EDT Contacted [facility]. Order has not been received. Discussed with Javier from [facility]. Order is currently being processed. Filomena RN documented in this encounterMercy Health Willard Hospital09-29-2022 Instructions* Patient Instructions* Fuentes Amaral MD - 11/03/2021 11:38 AM EDT 1. Need Mammogram results from [place] [facility] [place] 2. Proceed with genetic testing for platelet disorder 3. Call next week to review mammogram results documented in this encounterMercy Health Willard Hospital09-29-2022 History of Present illness Narrative* Fuentes [...] workup. PLAN: 1. Need Mammogram results from [place] 2. Proceed with genetic testing for platelet [...] which included preparing to see the patient, giul-cp-toln patient care, completing clinical documentation, obtaining and/or reviewing separately obtained history, performing a medically appropriate examination, counseling and educating the pat ient/family/caregiver, ordering medications, tests, or procedures, independently interpreting results (not separately reported) and communicating results to the patient/family/caregiver. Fuentes Amaral MD, CPE Hematology and Oncology Services Provided at: [place], [place] CC: Cas Dowell documented in this encounterMercy Health Willard Hospital09-25-2022 Miscellaneous Notes* Telephone Encounter - Fuentes Amaral MD - 10/30/2021 9:09 AM EDT I don't think I need labs for her. * Telephone Encounter - Sharon Peterson Ma - 10/27/2021 3:21 PM EDT If needed, please add lab orders for appointment on 11/03/21. Sharon Peterson Ma documented in this encounterMercy Health Willard Hospital09-19-2022 History of Present illness Narrative* Henny Rushing MD - 10/24/2021 11:30 AM EDT VIRTUAL VISIT PROGRESS NOTE This is a virtual visit using DVDPlay video visit. It required patient-provider interaction for [...] axillary lymphadenopathy. She is also following in [facility]. She has noticed a rash that is [...] 2 months. Immunodeficiency evaluation performed by an digital imager in [place] showed protective strep pneumo titers after vaccination [...] at the ER Last December saw an digital imager- skin testing was negative to environmental allergies [...] managed by her family medicine physician and director corporate communications. Has had 0 ER, hospitalization and ICU [...] uncontrolled Hypertension Mother Heart Attack Mother First NC at age 51 Cardiomyopathy Mother at age [...] or contact dermatitis- advise follow-up with local Bench Assembler Allergic rhinitis, unspecified seasonality, unspecified trigger Comment/Plan: Well-controlled, continue Flonase and oral antihistamine Moderate persistent asthma without complication Comment/Plan: Controlled, continue follow-up with Pulmonary and Covid-19 [facility] Henny Rushing MD documented in this encounterMercy Health Willard Hospital09-15-2022 History of Present illness Narrative* Micheal Perez MD - 10/20/2021 8:00 AM EDT Heart, Vascular & Thoracic [place] Department of Cardiac Surgery VIRTUAL VIDEO VISIT [...] uncontrolled Hypertension Mother Heart Attack Mother First NC at age 51 Cardiomyopathy Mother at age [...] 5:26 PM This note was generated using [employer] voice recognition system. Please excuse any typographical errors. I spent 30 minutes with the patient; greater than 50% of the time was spent in counselling and co-ordinating the care based on my impression and plan above. documented in this encounterMercy Health Willard Hospital09-14-2022 Instructions* Patient Instructions* Bhargavi Ramesh PA-C - 10/19/2021 2:31 PM EDT Consider restart Botox PREEMPT Protocol Discontinue Emgality Start Ajovy - once monthly - wait until 11/10 to inject the first dose [facility]: [phone] Consider aimovig or vyepti Please follow up in 3 months or sooner if needed documented in this encounterMercy Health Willard Hospital09-14-2022 History of Present illness Narrative* Bhargavi [...] fluticasone (FLONASE) 50 mcg/actuation nasal spray^Use 1 [place] in each nostril twice daily.^Disp: 3Each^Rfl: 11 [...] thrombosis. Unremarkable MRA brain and MRA neck. Vacuum Caster: [facility] Transcribe Date/Time: Mar 31 2016 2:40P [...] change which could potentially contribute to headache. Vacuum Caster: [facility] Transcribe Date/Time: Jun 27 2021 3:07P [...] Abs Lymph 1.00 - 4.00 k/uL 1.45 [place]% % 4.4 Abs [place] <0.87 k/uL 0.30 E[place]% % 2.5 Abs [...] spontaneous and fluent without dysarthria. Short and nursing home memory, cognition and general fund of knowledgeare [...] Bhargavi Ramesh PA-C Headache Section [facility] October 19, 2021 documented in this encounterMercy Health Willard Hospital09-09-2022 History of Present illness Narrative* Judith Valdes PSYD - 10/14/2021 8:59 AM EDT [facility] Progress Note Billing codes: Keisha PSYCHOLOGY: FOLLOW-UP APPOINTMENT PROGRESS NOTE- Virtual Visit Due to the federal emergency declaration and the need for ongoing mental health services, the following visit was completed virtually and informed consent obtained orally to reduce the risk of COVID-19 exposure. Oral consent to services related to virtual visits was obtained after information was sent via Techozhart or read to patient if MyChart not available. Leana Tran 10/14/2021 [id number] PROVIDER: Judith Valdes PSYD CPT Code: 8061183 Virtual PSYTX PT &/FAMILY 45 MINS Time [...] Valdes Psy.D. Associate Staff, [facility] documented in this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 Aldo Ann MD documented in this encounterMercy Health Willard Hospital06-09-2022 Nurse Note* TANYA Stacy - 07/14/2021 10:41 AM EDT Tobacco Use: Never Was smoking cessation packet given? N/A - Patient is a non-smoker or quit >1 year ago. Was a referral initiated?N/A Patient is a non-smoker documented in this encounterMercy Health Willard Hospital06-01-2022 History of Present illness Narrative* Tracee Mcintyre MD - 07/06/2021 1:14 PM EDT [facility] - NEW PATIENT EVALUATION Cas Dowell MD [address] [facility] [address] Thank you for refering Ms. Tran to our clinic today. 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 She is seen alone. Subjective HISTORY OF [...] Hypothyroid, IBS (irritable bowel syndrome), Platelet disorder ([facility]), Protein deficiency([facility]), Pseudopapilledema of both optic discs, [...] absent. Left pathological reflexes: Francisco's absent. Coordination Sccguo-fk-jujd, rapid alternating movements and ixwa-oj-nhtc normal bilaterally without dysmetria. Gait Casual gait [...] Disorders Medication Schedule: Level of service : 64309 (30-44 min). Time spent 44 min on the day of service, which included preparing to see the patient, gawq-gj-bsuf patient care, completing clinical documentation, obtaining and/or [...] PA-C today. documented in this encounterMercy Health Willard Hospital05-31-2022 Miscellaneous Notes* Result QuickNote - Jackelyn Marques MD - 07/05/2021 8:16 AM EDT Ms. Tran, I reviewed the test results. The cortisol cannot be interpreted as it was drawn too late in the morning. Please repeat at around 7-8AM, labs were ordered. Wish you well. Dr. Marques Endocrinology documented in this encounterMercy Health Willard Hospital05-27-2022 History of Present illness Narrative* Yan [...] which included preparing to see the patient, oqkt-mq-eglv patient care, completing clinical documentation, obtaining and/or reviewing separately obtained history, performing a medically appropriate examination, counseling and educating the pat ient/family/caregiver, ordering medications, tests, or procedures, independently interpreting results (not separately reported) and communicating results to the patient/family/caregiver. CC: Cas Dowell documented in this encounterMercy Health Willard Hospital05-23-2022 Instructions* Patient Instructions* Peter Knight APRN.CNP - 06/27/2021 4:08 PM EDT Please call to arrange for consults, future appointments, and tests: ED evaluation for worst headache of her life with associated neuro deficit. 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 documented in this encounterMercy Health Willard Hospital05-23-2022 History of Present illness Narrative* Peter Knight APRN.CNP - 06/27/2021 11:00 AM EDT Images from the original note were not included. [facility] Follow-Up/Established Patient Visit Consulting Provider: SELF Individuals who were included in, or assisted with the encounter were: Leana Green Guzzo, RIB BUILDER.ASSISTANT PLANT CONTROLLER Chief Complaint/Issues: Leana Tran is a 35 year old female seen in the [facility] for: 1. Established patient 2. 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 She was evaluated by legal cashier and there was mention of placing a [...] not wear, she was told by a legal cashier in her local area to wear compression [...] No pes cavus or hammer toes Strength Sole Rounder, push/pull is equal. No drift Movement/Coordination Continuous dance-like movement of legs and torso Gait Unable to stand without upper body assistance. Slow station and stride. No festination or retropulsion. Gait is bizarre and cautious. Romberg's sign is absent. Drowsy, intermittently engaged, facial flushing noted. Neurological Exam Assessment & Plan 06/27/2021 - Neuromuscular, Peter Knight APRN.ASSISTANT PLANT CONTROLLER ASSESSMENT Patient presents today as follow up [...] gradually rise. There was no facial droop, rehabilitation teacher and push/pulls were equal in strength, PERRL, [...] which included preparing to see the patient, ymor-ea-bfzm patient care, completing clinical documentation, obtaining and/or reviewing separately obtained history, performing a medically appropriate examination, counseling and educating the pat ient/family/caregiver and ordering medications, tests, or procedures. Peter Knight APRN.MACY documented in this encounterMercy Health Willard Hospital05-12-2022 Miscellaneous Notes* Telephone Encounter - Yan [...] Bass MD documented in this encounterMercy Health Willard Hospital05-10-2022 Miscellaneous Notes* Telephone Encounter - Leighann [...] Alcazar RN documented in this encounterMercy Health Willard Hospital05-10-2022 History of Present illness Narrative* Jackelyn [...] 7.5 tablets/week. She is following a local electrician aircraft who adjusted dose for her. Most recent [...] which included preparing to see the patient, pkdw-xj-xwvj patient care, completing clinical documentation, obtaining and/or reviewing separately obtained history, performing a medically appropriate examination, counseling and educating the pat ient/family/caregiver, ordering medications, tests, or procedures. This note was dictated using [employer] speech recognition software and may contain some errors that were a result of the program not accurately transcribing what was dictated. Jackelyn Marques M.D., M.Sc. Attending Rn Clinical Review Endocrinology and Met[facility] [place], [facility] Office: Appointments: documented in this encounterMercy Health Willard Hospital05-10-2022 Nurse Note* Dian Aldana RN - 06/14/2021 9:06 AM EDT Thank you for choosing the [facility] Department of Endocrinology, Diabetes and Metabolism. Did you know that you need to call 48 hours in advance of your scheduled visit, if you are unable to make your appointment? The [facility]in[facility] [place] thanks you for your commitment, because patients not showing to their appointment results in a lost opportunity for patients to receive [facility] health care at the [facility]. To Cancel an appointment, please choose one of the following: - Call the Appointment Call Center at [phone] - From DVDPlay, Go to Appointments Cancel Appts If cancelling, consider your need to reschedule to prevent further delays in your care. To Schedule an appointment, please choose one of the following: - Call the Appointment Call Center at [phone] - From DVDPlay, Go to Appointments Request an Appt documented in this encounterMercy Health Willard Hospital05-10-2022 History of Present illness Narrative* Haily [place] [facility] - 06/14/2021 8:25 AM EDT UNIVERSAL PROTOCOL [...] Care Visit completed when applicable. Haily [place] [employer] Tech documented in this encounterMercy Health Willard Hospital05-06-2022 History of Present illness Narrative* Yan [...] neurology and cardiology at [facility] next week. ROS is negative except that [...] which included preparing to see the patient, ygei-eu-sagn patient care, completing clinical documentation, obtaining and/or reviewing separately obtained history, performing a medically appropriate examination, counseling and educating the pat ient/family/caregiver, ordering medications, tests, or procedures, independently interpreting results (not separately reported) and communicating results to the patient/family/caregiver. CC: Peng Manley documented in this encounterMercy Health Willard Hospital04-26-2022 Miscellaneous Notes* Telephone Encounter - Shayla Lua [facility] - 05/31/2021 8:15 AM EDT Outside medical records received and scanned in for review. documented in this encounterMercy Health Willard Hospital04-15-2022 Hospital Discharge instructions* Instructions* Shanna Rivas APRN - CNP - 05/20/2021 [...] sent through Care Everywhere. * Chest Pain (Egyptian) * Abdominal Pain (Egyptian) documented in this encounterKindred Hospital Daytonwhoplusyou Phone: 1(892) 405-802403-12-2022 Hospital Discharge instructions* Instructions* Shanna Rivas APRN - CNP - 04/16/2021 Increase your fluid intake. Follow-up with both PCP and ROLLED OATS MILL OPERATOR for reevaluation. Take Reglan as prescribed. Talk to your ROLLED OATS MILL OPERATOR about the left ovarian cyst seen on CT as well as possible mild fluid in your fallopian tube. Take all medications as prescribed. Return to the ER for increased pain, fevers, difficulty breathing, vomiting or new or worsening signs or symptoms. * Attachments The following attachments cannot be sent through Care Everywhere. * Ovarian Cyst: Functional (Egyptian) * Nausea and Vomiting (Egyptian) documented in this [employer] Phone: 1(573) 213-493209-27-2021 Hospital Discharge instructions* Instructions* Araseli Barrett MD [...] Everywhere. * Coronavirus Disease (COVID-19): General Info (Egyptian) documented in this [employer] Phone: 1(435) 642-127808-02-2021 NoteHNO ID: [id number] Author: Lis Moraes MD Service: ? Author [...] Kenalog. - Tolerated procedure well Lis Moraes MDVibra Hospital Of Western [id number] NoteHNO ID: [id number] Author: Lis Moraes MD Service: ? Author Type: Physician Type: Progress Notes Filed: 09/06/2020 3:10 PM Note Text: PROGRESS NOTE- HEADACHE SERVICE DATE: September 06, 2020 Location: [facility] Participants: patient and provider Requesting Provider: self [...] and bleeds - Lavender (more content not included)...[facility] MassachusettsEvaluation + Plan note Future Appointments Appointment Date:02/28/2022 08:30:00 AM Scheduled Provider:LORAINE BURNHAM PA-C Location:[facility] Future Appointments Appointment Date:08/30/2022 03:00:00 PM Scheduled Provider:LORAINE BURNHAM PA-C Location:[facility] Appointment Type:URO Office Visit [facility] evaluation + Plan note Future Appointments Appointment Date:09/11/2023 09:00:00 AM Scheduled Provider:LORAINE BURNHAM PA-C Location:[facility] Appointment Type:URO Office Visit [facility] evaluation + Plan note Future Appointments Appointment Date:10/15/2025 10:20:00 AM Scheduled Provider:CHELO Choe APRN, [place] [facility] Location:[facility] Appointment Type:URO Office Visit [facility] evaluation note* Diagnosis Strain of lumbar region, initial encounter- Primary documented in this encounter [email or web address] Phone: evaluation note* Diagnosis COVID-19- Primary documented in this encounter [email or web address] Phone: evaluation note* Diagnosis Intractable nausea and vomiting- Primary Persistent vomiting Hydrosalpinx Chronic salpingitis and oophoritis Left ovarian cyst Other and unspecified ovarian cyst documented in this encounter [email or web address] Phone: evaluation note* Diagnosis Chest pain, unspecified type- Primary Abdominal pain, acute, right lower quadrant Abdominal pain, right lower quadrant documented in this encounter [email or web address] Phone: evaluation note* Diagnosis Urticaria- Primary Urticaria, unspecified Moderate persistent asthma with exacerbation Unspecified asthma, with exacerbation documented in this encounter [email or web address] Phone: evaluation note* Diagnosis Coagulopathy (HCC)- Primary Other and unspecified coagulation defects [facility]* Diagnosis Screening for endocrine disorder- Primary Primary hypothyroidism Unspecified hypothyroidism documented in this encounter [facility] note* Diagnosis Screening for endocrine disorder- Primary documented in this encounter [facility] note* Diagnosis Disorder of autonomic nervous system Unspecified disorder of autonomic nervous system [facility] Spasm of muscle- Primary Acute nonspecific chest pain with low risk of coronary artery disease documented in this encounter [email or web address] Phone: evaluation note* Diagnosis Worsening headaches- Primary Headache Maxillary sinus cyst Other diseases of nasal cavity and sinuses Muscle spasms of lower extremity, unspecified laterality Akathisia Abnormal involuntary movements Blurred vision Other specified visual disturbances Chorea Other choreas [facility] Diagnosis Coagulopathy (HCC)- Primary Other and unspecified coagulation defects 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 [facility] Diagnosis Screening for endocrine disorder- Primary [facility] Diagnosis Intractable chronic migraine without aura and without status migrainosus- Primary Chronic migraine without aura, with intractable migraine, so stated, without mention of status migrainosus Abnormal involuntary movement Abnormal involuntary movements [facility] Diagnosis Allergy, initial encounter- Primary Headaches [facility]* Diagnosis Bleeding disorder (HCC)- Primary Unspecified hemorrhagic conditions Coagulopathy (HCC) Other and unspecified coagulation defects 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 [facility] Diagnosis Screening for endocrine disorder [facility] Diagnosis 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) Unspecified hemorrhagic conditions [facility] Diagnosis History of COVID-19- Primary Symptomatic bradycardia Other specified cardiac dysrhythmias Blood pressure instability Other abnormal clinical finding [facility] Diagnosis Angioedema, initial encounter- Primary Urticaria Urticaria, unspecified Hoarseness of voice Dysphonia Allergic rhinitis, unspecified seasonality, unspecified trigger Adverse effect of drug, initial encounter Allergic reaction to contrast material, initial encounter Adverse food reaction, initial encounter Moderate persistent asthma without complication Unspecified asthma Gastroesophageal reflux disease, unspecified whether esophagitis present [facility] Diagnosis Screening for endocrine disorder Muscle spasms of lower extremity, unspecified laterality Akathisia Abnormal involuntary movements [facility] Diagnosis Chronic migraine without aura, intractable, without status migrainosus- Primary [facility]* Diagnosis Depression, unspecified depression type- Primary Anxiety Anxiety state, unspecified Intractable chronic migraine without aura and without status migrainosus Chronic migraine without aura, with intractable migraine, so stated, without mention of status migrainosus Abnormal involuntary movement Abnormal involuntary movements [facility] White coat syndrome with hypertension- Primary [facility] Diagnosis Intractable chronic migraine without aura and without status migrainosus Chronic migraine without aura, with intractable migraine, so stated, without mention of status migrainosus Abnormal involuntary movement Abnormal involuntary movements [facility] Diagnosis Chronic RLQ pain- Primary Abdominal pain, right lower quadrant Diastasis recti Diastasis of muscle [facility] Diagnosis Chronic RLQ pain- Primary Abdominal pain, right lower quadrant [facility] Diagnosis Symptomatic bradycardia Other specified cardiac dysrhythmias Blood pressure instability Other abnormal clinical finding History of COVID-19 [facility] Diagnosis White coat syndrome without diagnosis of hypertension- Primary Elevated blood pressure reading without diagnosis of hypertension [facility] Diagnosis Diffuse pain- Primary Generalized pain Decreased activity tolerance Physical deconditioning Debility, unspecified Orthostatic intolerance [facility] Diagnosis Long COVID- Primary Diffuse pain Generalized pain Decreased activity tolerance PTSD (post-traumatic stress disorder) Posttraumatic stress disorder [facility]* Diagnosis Allergic reaction, initial encounter- Primary documented in this encounter [facility] [employer] Phone: evaluation note* Diagnosis Depression, unspecified depression type- Primary Anxiety Anxiety state, unspecified Abnormal involuntary movement Abnormal involuntary movements [facility]* Diagnosis Post-acute sequelae of [...] axilla [facility] Diagnosis Bone pain- Primary Disorder of bone and cartilage, unspecified Malaise and fatigue Other malaise and fatigue Lymphadenopathy Enlargement of lymph nodes [facility] Diagnosis 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 [facility] Diagnosis History of COVID-19- [...] sites [facility] Diagnosis History of COVID-19 [...] sites [facility] Diagnosis History of COVID-19 [...] sites [facility]* Diagnosis 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 [facility]* Diagnosis History of COVID-19 [...] in this encounter [facility] note* Diagnosis Malaise and fatigue- Primary Other malaise and fatigue Lymphadenopathy Enlargement of lymph nodes documented in this encounter [facility] note* Diagnosis Depression, unspecified depression type- Primary Anxiety Anxiety state, unspecified Abnormal involuntary movement Abnormal involuntary movements documented in this encounter [facility] note* Diagnosis Chronic migraine without aura, intractable, without status migrainosus- Primary documented in this encounter [facility] note* Diagnosis Palpitations- Primary Symptomatic bradycardia Other specified cardiac dysrhythmias Orthostatic lightheadedness Dizziness and giddiness Diffuse pain Generalized pain Blood pressure instability Other abnormal clinical finding Decreased activity tolerance Orthostatic intolerance Moderate persistent asthma without complication Unspecified asthma Physical deconditioning Debility, unspecified documented in this encounter [facility] note* Diagnosis Night sweats- Primary Generalized hyperhidrosis Lymphadenopathy Enlargement of lymph nodes Rash and nonspecific skin eruption Rash and other nonspecific skin eruption Allergic rhinitis, unspecified seasonality, unspecified trigger Moderate persistent asthma without complication Unspecified asthma documented in this encounter [facility] note* Diagnosis 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) Unspecified hemorrhagic conditions documented in this encounter [facility] note* Diagnosis 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 documented in this encounter [facility] note* Diagnosis Breast screening- Primary Breast screening, unspecified 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 documented in this encounter [facility] note* Diagnosis KATELIN on CPAP- Primary [...] health documented in this encounter [facility] note* Diagnosis Breast screening- Primary Breast screening, unspecified 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 documented in this encounter [facility] note* Diagnosis Palpitations- Primary Orthostatic intolerance Symptomatic bradycardia Other specified cardiac dysrhythmias documented in this encounter [facility] note* Diagnosis Moderate persistent asthma without complication- Primary Unspecified asthma SOB (shortness of breath) Shortness of breath Post-acute sequelae of COVID-19 (PASC) documented in this encounter [facility] note* Diagnosis Migraine without aura and without status migrainosus, not intractable- Primary Migraine without aura, without mention of intractable migraine without mention of status migrainosus documented in this encounter [facility] note* Diagnosis 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) Unspecified hemorrhagic conditions documented in this encounter [facility] note* Diagnosis No-show for appointment- Primary documented in this encounter [facility] note* Diagnosis 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) Unspecified hemorrhagic conditions Coagulopathy (HCC) Other and unspecified coagulation defects documented in this encounter [facility] note* Diagnosis 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) Unspecified hemorrhagic conditions documented in this encounter [facility] note* Diagnosis 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 documented in this encounter [facility] note* Diagnosis Migraine without aura and without status migrainosus, not intractable- Primary Migraine without aura, without mention of intractable migraine without mention of status migrainosus documented in this encounter [facility] note* Diagnosis 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) Unspecified hemorrhagic conditions Coagulopathy (HCC) Other and unspecified coagulation defects documented in this encounter [facility] note* Diagnosis Moderate persistent asthma without complication (CMS/HCC)- Primary documented in this encounter [facility]* Diagnosis 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 POTS (postural orthostatic tachycardia syndrome) Tachycardia, unspecified documented in this encounter [facility] note* Diagnosis Chronic RLQ pain Abdominal pain, right lower quadrant documented in this encounter [facility] note* Diagnosis Severe persistent asthma with (acute) exacerbation (CMS/HCC)- Primary Allergic reaction, subsequent encounter Gastroesophageal reflux disease without esophagitis Esophageal reflux Vocal cord dysfunction Other diseases of vocal cords documented in this encounter [facility]* Diagnosis Vocal cord dysfunction- Primary Other diseases of vocal cords documented in this encounter [facility]* Diagnosis Autonomic dysfunction- Primary Chest pain, unspecified type Type 2 diabetes mellitus with hyperglycemia, without long-term current use of insulin (CMS/HCC) Type 2 diabetes mellitus with hyperglycemia, without long-term current use of insulin (CMS/[facility])- Primary Chronic [id number] syndrome Moderate persistent asthma without complication (CMS/HCC) Chronic allergic rhinitis due to pollen Edema of both legs Edema Acute non-recurrent pansinusitis Allergic reaction, subsequent encounter- Primary Body mass index (BMI) 38.0-38.9, adult Type 2 diabetes mellitus with hyperglycemia, without long-term current use of insulin ([facility])- Primary Chronic [id number] syndrome Moderate persistent asthma without complication (CMS/HCC) Chronic allergic rhinitis due to pollen Edema of both legs Edema PCOS (polycystic ovarian syndrome)- Primary Polycystic ovaries Well woman exam with routine gynecological exam Routine gynecological examination Hormone disorder Unspecified endocrine disorder documented in this encounter [facility]Evaluation note* Diagnosis Moderate asthma without complication, unspecified whether persistent [facility] Diagnosis Allergic reaction, subsequent encounter- Primary Body mass index (BMI) 38.0-38.9, adult documented in this encounter [facility] HealthcareEvaluation note* Diagnosis Type 2 diabetes mellitus with hyperglycemia, without long-term current use of insulin ([facility])- Primary Chronic [id number] syndrome Moderate persistent asthma without complication ([facility]) Chronic allergic rhinitis due to pollen Edema of both legs Edema documented in this encounter [facility] note* Diagnosis Autonomic dysfunction- Primary Chest pain, unspecified type Type 2 diabetes mellitus with hyperglycemia, without long-term current use of insulin ([facility]) Type 2 diabetes mellitus with hyperglycemia, without long-term current use of insulin ([facility])- Primary Chronic [id number] syndrome Moderate persistent asthma without complication (CMS/HCC) Chronic allergic rhinitis due to pollen Edema of both legs Edema Acute non-recurrent pansinusitis Allergic reaction, subsequent encounter- Primary Body mass index (BMI) 38.0-38.9, adult Type 2 diabetes mellitus with hyperglycemia, without long-term current use of insulin (CMS/HCC)- Primary Chronic [id number] syndrome Moderate persistent asthma without complication (CMS/HCC) Chronic allergic rhinitis due to pollen Edema of both legs Edema Type 2 diabetes mellitus with hyperglycemia, without long-term current use of insulin (CMS/HCC)- Primary Autonomic dysfunction Chronic [id number] syndrome Moderate persistent asthma without complication (CMS/HCC) Chronic allergic rhinitis due to pollen Edema of both legs Edema MDD (major depressive disorder), recurrent episode, mild (HCC) (CMS/HCC) Class 2 severe obesity due to excess calories with serious comorbidity and body mass index (BMI) of 37.0 to 37.9 in adult ([facility]/HCC) Gastroesophageal reflux disease without esophagitis Esophageal reflux documented in this encounter [facility] HealthcareEvaluation note* Diagnosis Autonomic dysfunction- Primary Chest pain, unspecified type Type 2 diabetes mellitus with hyperglycemia, without long-term current use of insulin (CMS/HCC) Type 2 diabetes mellitus with hyperglycemia, without long-term current use of insulin ([facility]/HCC)- Primary Chronic [id number] syndrome Moderate persistent asthma without complication (CMS/HCC) Chronic allergic rhinitis due to pollen Edema of both legs Edema Acute non-recurrent pansinusitis Allergic reaction, subsequent encounter- Primary Body mass index (BMI) 38.0-38.9, adult Type 2 diabetes mellitus with hyperglycemia, without long-term current use of insulin ([facility]/HCC)- Primary Chronic [id number] syndrome Moderate persistent asthma without complication (CMS/HCC) Chronic allergic rhinitis due to pollen Edema of both legs Edema Type 2 diabetes mellitus with hyperglycemia, without long-term current use of insulin (CMS/HCC)- Primary Autonomic dysfunction Chronic [id number]-[id number]-85 syndrome Moderate persistent asthma without complication (CMS/HCC) Chronic allergic rhinitis due to pollen Edema of both legs Edema MDD (major depressive disorder), recurrent episode, mild (HCC) (CMS/HCC) Class 2 severe obesity due to excess calories with serious comorbidity and body mass index (BMI) of 37.0 to 37.9 in adult ([facility]/HCC) Gastroesophageal reflux disease without esophagitis Esophageal reflux COVID-19- Primary Moderate persistent asthma without complication (CMS/HCC) documented in this encounter [facility]Evaluation note* Diagnosis Migraine without aura and without status migrainosus, not intractable- Primary 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 Cervicalgia Hypersomnia with sleep apnea Hypersomnia with sleep apnea, unspecified Memory difficulties Memory loss KATELIN (obstructive sleep apnea) Obstructive sleep apnea (adult) (pediatric) Trapezius muscle spasm Word finding difficulty documented in this encounter [facility]* Diagnosis 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 documented in this encounter [facility]* Diagnosis 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- Primary Migraine without aura and without status migrainosus, not intractable Word finding difficulty Trapezius muscle spasm Memory difficulties Memory loss Hypersomnia with sleep apnea Hypersomnia with sleep apnea, unspecified 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 Cervicalgia Brain fog documented in this encounter [facility]* Diagnosis Autonomic dysfunction- Primary Chest pain, unspecified type Type 2 diabetes mellitus with hyperglycemia, without long-term current use of insulin ([facility]/HCC) Type 2 diabetes mellitus with hyperglycemia, without long-term current use of insulin ([facility])- Primary Chronic [id number] syndrome Moderate persistent asthma without complication (CMS/HCC) Chronic allergic rhinitis due to pollen Edema of both legs Edema Acute non-recurrent pansinusitis Allergic reaction, subsequent encounter- Primary Body mass index (BMI) 38.0-38.9, adult Type 2 diabetes mellitus with hyperglycemia, without long-term current use of insulin (CMS/HCC)- Primary Chronic [id number]-[id number] syndrome Moderate persistent asthma without complication (CMS/HCC) Chronic allergic rhinitis due to pollen Edema of both legs Edema Type 2 diabetes mellitus with hyperglycemia, without long-term current use of insulin (CMS/HCC)- Primary Autonomic dysfunction Chronic vfyg-AMGRH-85 syndrome Moderate persistent asthma without complication (CMS/HCC) [...] right upper extremity documented in this encounter [facility]Evaluation note* Diagnosis Autonomic dysfunction- Primary Chest pain, unspecified type Type 2 diabetes mellitus with hyperglycemia, without long-term current use of insulin (HCC) Type 2 diabetes mellitus with hyperglycemia, without long-term current use of insulin (HCC)- Primary Chronic himq-[id number]-[id number] syndrome Moderate persistent asthma without complication (HCC) Chronic allergic rhinitis due to pollen Edema of both legs Edema Acute non-recurrent pansinusitis Allergic reaction, subsequent encounter- Primary Body mass index (BMI) 38.0-38.9, adult Type 2 diabetes mellitus with hyperglycemia, without long-term current use of insulin (HCC)- Primary Chronic pxky-[id number]-41 syndrome Moderate persistent asthma without complication (HCC) Chronic allergic rhinitis due to pollen Edema of both legs Edema Type 2 diabetes mellitus with hyperglycemia, without long-term current use of insulin (HCC)- Primary Autonomic dysfunction Chronic viba-[id number]-39 syndrome Moderate persistent asthma without complication (HCC) [...] both legs Edema documented in this encounter [facility]Evaluation note* Diagnosis Migraine without aura and without status migrainosus, not intractable [facility] Diagnosis Edema, unspecified type Palpitations with regular cardiac rhythm [facility] Diagnosis Onset Date Resolution Status Admit Date Right forearm injury acute Augu st 2024 11:37am [facility] Work Phone: Evaluation note* Diagnosis Migraine without aura and without status migrainosus, not intractable documented in this encounter [facility]* Diagnosis Autonomic dysfunction- Primary Chest pain, unspecified type Type 2 diabetes mellitus with hyperglycemia, without long-term current use of insulin (HCC) Type 2 diabetes mellitus with hyperglycemia, without long-term current use of insulin (HCC)- Primary Chronic [id number]-[id number] syndrome Moderate persistent asthma without complication (HCC) Chronic allergic rhinitis due to pollen Edema of both legs Edema Acute non-recurrent pansinusitis Allergic reaction, subsequent encounter- Primary Body mass index (BMI) 38.0-38.9, adult Type 2 diabetes mellitus with hyperglycemia, without long-term current use of insulin (HCC)- Primary Chronic [id number]-[id number]-27 syndrome Moderate persistent asthma without complication (HCC) Chronic allergic rhinitis due to pollen Edema of both legs Edema Type 2 diabetes mellitus with hyperglycemia, without long-term current use of insulin (HCC)- Primary Autonomic dysfunction Chronic lfyi-ZRWOJ-03 syndrome Moderate persistent asthma without complication (HCC) Chronic allergic rhinitis due to pollen Edema of both legs Edema MDD (major depressive disorder), recurrent episode, mild Class 2 severe obesity due to excess calories with serious comorbidity and body mass index (BMI) of 37.0 to 37.9 in adult ([facility]-HCC) Gastroesophageal reflux disease without esophagitis Esophageal reflux Annual physical exam- Primary Routine general medical examination at a health care facility Type 2 diabetes mellitus with hyperglycemia, without long-term current use of insulin (HCC) Primary hypothyroidism Unspecified hypothyroidism Edema of both legs Edema Chronic rhinosinusitis- Primary Unspecified sinusitis (chronic) Right wrist pain Pain in joint, forearm Right forearm pain documented in this encounter [facility] HealthcareEvaluation note* Diagnosis POTS (postural orthostatic tachycardia [...] uterus [facility] Diagnosis Autonomic dysfunction- Primary Chest pain, unspecified type Type 2 diabetes mellitus with hyperglycemia, without long-term current use of insulin (HCC) Type 2 diabetes mellitus with hyperglycemia, without long-term current use of insulin (HCC)- Primary Chronic llye-[id number] syndrome Moderate persistent asthma without complication (HCC) Chronic allergic rhinitis due to pollen Edema of both legs Edema Acute non-recurrent pansinusitis Allergic reaction, subsequent encounter- Primary Body mass index (BMI) 38.0-38.9, adult Type 2 diabetes mellitus with hyperglycemia, without long-term current use of insulin (HCC)- Primary Chronic pkcj-NNBYZ-24 syndrome Moderate persistent asthma without complication (HCC) Chronic allergic rhinitis due to pollen Edema of both legs Edema Type 2 diabetes mellitus with hyperglycemia, without long-term current use of insulin (HCC)- Primary Autonomic dysfunction Chronic nkyn-SCNJY-30 syndrome Moderate persistent asthma without complication (HCC) Chronic allergic rhinitis due to pollen Edema of both legs Edema MDD (major depressive disorder), recurrent episode, mild Class 2 severe obesity due to excess calories with serious comorbidity and body mass index (BMI) of 37.0 to 37.9 in adult ([facility]) Gastroesophageal reflux disease without esophagitis Esophageal reflux [...] Right [facility] pain 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 * Strain or Sprain (Egyptian) [facility] Discharge instructions* Attachments The following attachments cannot be sent through Care Everywhere. * Chest Pain (Egyptian) * Restless Legs Syndrome (Egyptian) [facility] Hospital Discharge instructions No data available for this section [facility] InstructionsNot on filedocumented in this encounter [...] for this section [facility] reason for referral (narrative)* Diagnostic Procedure Only (Routine) - Authorized Specialty Diagnoses / Procedures Referred By Contac t Referred To Contact US IMAGING Diagnoses Chronic RLQ pain Procedures US SOFT TISSUE ABDOMEN US ABDOMINAL REAL TIME W/[place] [address] [place] [address] Us Imaging Referral ID Status Reason Start Date Expiration Date Visits Requested Visits Authorized [id number] Authorized Auto-Generat ed Referral 08/15/2021 09/14/2022 1 1 [facility] for referral (narrative)* Diagnostic Procedure Only (Routine) - Authorized Specialty Diagnoses / Procedures Referred By Leviac t Referred To Contact US IMAGING Diagnoses Chronic RLQ pain Procedures US PELVIS LTD US PELVIC NONOBSTETRIC IMAGE DCMTN LIMITED/F/[place] [address] [place] [address] Us Imaging Referral ID Status Reason Start Date Expiration Date Visits Requested Visits Authorized [id number] Authorized Auto-Generat ed Referral 08/16/2021 09/15/2022 1 1 [facility] for referral (narrative)* Outpatient Procedure (Routine) - Closed Specialty Diagnoses / Procedures Referred By Sabas t Referred To Contact [facility] Diagnoses Symptomatic bradycardia Blood pressure instability History of COVID-19 Procedures ECHO ECHO TTHRC R-T 2D W/WOM-MODE COMPL SPEC&COLR D Sai Perez MD [address] [place] [address] [facility] [address] [place] [address] Referral ID Status Reason Start Date Expiration Date V isits Requested Visits Authorized [id number] Closed Auto-Generate d Referral 07/21/2021 07/21/2022 1 1 [facility] for referral (narrative)* Diagnostic Procedure Only (Routine) - Pending Review Specialty Diagnoses / Procedures Referred By Sabas t Referred To Contact US IMAGING Diagnoses Post-acute sequelae of COVID-19 (PASC) Mass of left axilla Procedures US CHEST WALL/SOFT TISSUE US CHEST REAL TIME W/IMAGE DOCUMENTATION Landen Mahmood APRN.[employer] [address] [place] [address] Us Imaging Referral ID Status Reason Start Date Expiration Date Visits Requested Visits Authorized [id number] Pending Review Auto-Generat ed Referral 09/19/2021 10/19/2022 1 1 * Outpatient Procedure (Routine) - Pending Review Specialty Diagnoses / Procedures Referred By Contac t [facility] Diagnoses History of COVID-19 Post-acute sequelae of COVID-19 (PASC) SOB (shortness of breath) Chronic cough Chest discomfort Palpitation CAVANAUGH (dyspnea on exertion) Dizziness Near syncope Night sweats Orthopnea Anxiety Myalgia Pain in joint, multiple sites Procedures LUNG VOLUMES Landen Mahmood APRN.CNP [address] [place] [address] [facility] [address] [place] [address] Referral ID Status Reason Start Date Expiration Date Visits Requested Visits Authorized [id number] Pending Review Auto-Generat ed Referral 09/19/2021 10/19/2022 1 1 * Outpatient Procedure (Routine) - Pending Review Specialty Diagnoses / Procedures [facility] Diagnoses History of COVID-19 Post-acute sequelae of COVID-19 (PASC) SOB (shortness of breath) Chronic cough Chest discomfort Palpitation CAVANAUGH (dyspnea on exertion) Dizziness Near syncope Night sweats Orthopnea Anxiety Myalgia Pain in joint, multiple sites Procedures SPIROMETRY - BASELINE AND POST DILATOR BRNCDILAT RSPSE SPMTRY PRE&POST-BRNCDILAT ADMN Landen Mahmood APRN.[employer] [address] [place] [address] [facility] [address] [place] [address] Referral ID Status Reason Start Date Expiration Date Visits Requested Visits Authorized [id number] Pending Review Auto-Generat ed Referral 09/19/2021 10/19/2022 1 1 * Outpatient Procedure (Routine) - Pending Review Specialty Diagnoses / Procedures [facility] Diagnoses History of COVID-19 Post-acute sequelae of COVID-19 (PASC) SOB (shortness of breath) Chronic cough Chest discomfort Palpitation CAVANAUGH (dyspnea on exertion) Dizziness Near syncope Night sweats Orthopnea Anxiety Myalgia Pain in joint, multiple sites Procedures SIX MINUTE WALK CARDIOPULMONARY EXERCISE STRESS Landen Mahmood APRN.CNP [address] [place] [address] [facility] [address] [place] [address] Referral ID Status Reason Start Date Expiration Date Visits Requested Visits Authorized [id number] Pending Review Auto-Generat ed Referral 09/19/2021 10/19/2022 1 1 * Outpatient Procedure (Routine) - Pending Review Specialty Diagnoses / Procedures Referred By Leviac t Referred To Contact [facility] Diagnoses History of COVID-19 Post-acute sequelae of COVID-19 (PASC) SOB (shortness of breath) Chronic cough Chest discomfort Palpitation CAVANAUGH (dyspnea on exertion) Dizziness Near syncope Night sweats Orthopnea Anxiety Myalgia Pain in joint, multiple sites Procedures LUNG DIFFUSION CAPACITY (DLCO) DIFFUSING CAPACITY Landen Mahmood APRN.CNP [address] [place] [address] [facility] [address] [place] [address] Referral ID Status Reason Start Date Expiration Date Visits Requested Visits Authorized [id number] Pending Review Auto-Generat ed Referral 09/19/2021 10/19/2022 1 1 [facility] for referral (narrative)* Outpatient Procedure (Routine) - Pending Review Specialty Diagnoses / Procedures Referred By Contac t Referred To Contact [facility] Diagnoses KATELIN on CPAP Poor compliance with CPAP treatment Procedures PAP NAP PSG (CPAP, BILEVEL, ASV) SLEEP STD REC VNTJ RESPIR ECG/HRT RATE&O2 ATTN Meena Grissom MD [address] [place] [address] [facility] [address] [place] [id number] Referral ID Status Reason Start Date Expiration Date Visits Requested Visits Authorized [id number] Pending Review Auto-Generat ed Referral 12/16/2022 1 1 [facility] for referral (narrative)* Outpatient Procedure (Routine) - Pending Review Specialty Diagnoses / Procedures [facility] [place] Diagnoses Moderate persistent asthma without complication SOB (shortness of breath) Post-acute sequelae of COVID-19 (PASC) Procedures SPIROMETRY - BASELINE AND POST DILATOR BRNCDILAT RSPSE SPMTRY PRE&POST-BRNCDILAT ADMJaja Diggs PA-C [address] [place] [address] [place] [address] Referral ID Status Reason Start Date Expiration Date Visits Requested Visits Authorized [id number] Pending Review Auto-Generat ed Referral 12/06/2021 01/05/2023 1 1 * Outpatient Procedure (Routine) - Pending Review Specialty Diagnoses / Procedures Referred By Sabas harris [facility] [place] Diagnoses Moderate persistent asthma without complication SOB (shortness of breath) Post-acute sequelae of COVID-19 (PASC) Procedures NITRIC OXIDE, EXHALED NITRIC OXIDE GAS DETERMINATION Jaja Cabral PA-C [address] [place] [address] [facility] [address] [place] [address] Referral ID Status Reason Start Date Expiration Date Visits Requested Visits Authorized [id number] Pending Review Auto-Generat ed Referral 12/06/2021 01/05/2023 1 1 [facility] Diagnostic Procedure Only (Routine) - Closed Specialty Diagnoses / Procedures Referred By Contac t Referred To Contact US IMAGING Diagnoses Chronic RLQ pain Procedures US PELVIS LTD US PELVIC NONOBSTETRIC IMAGE [facility]/F/[place] [address] [place] [address] [place] [address] Referral ID Status Reason Start Date Expiration Date V isits Requested Visits Authorized [id number] Closed Auto-Generate d Referral 08/16/2021 09/15/2022 1 1 [facility] Consultation (Routine) - Pending Review Specialty Diagnoses / Procedures Referred By Contac t Referred To Contact Speech Pathology Diagnoses Vocal cord dysfunction Procedures [place] OFFICE/OUTPATIENT NEW HIGH MDM 60 MINUTES Christy Painting MD [address] [facility] [address] [place] [address] Referral ID Status Reason Start Date Expiration Date Visits Requested Visits Authorized [id number] Pending Review Specialty Services Required 11/07/2023 05/05/2024 1 1 [facility] (narrative)* Consultation (Routine) - Pending Review Specialty Diagnoses / Procedures Referred By Contac t Referred To Contact Allergy Diagnoses Allergic reaction, subsequent encounter Procedures IL OFFICE/OUTPATIENT NEW HIGH MDM 60 MINUTES Cas Dowell MD [address] [place] [address] Christy Painting MD [address] [place] [address] Referral ID Status Reason Start Date Expiration Date Visits Requested Visits Authorized [id number] Pending Review Specialty Services Required 09/26/2023 03/24/2024 1 1 [facility] (narrative)No reason for referral information availableFirelands [facility] Work Phone: [facility] Narrative* Outpatient Procedure (Routine) - Closed Specialty Diagnoses / Procedures Referred By Contac t Referred To Contact [facility] Diagnoses Symptomatic bradycardia Blood pressure instability History of COVID-19 Procedures ECHO ECHO TTHRC R-T 2D W/WOM-MODE COMPL SPEC&COLR D Sai Perez MD [address] [place] [address] [place] [address] Referral ID Status Reason Start Date Expiration Date V isits Requested Visits Authorized [id number] Closed Auto-Generate d Referral 07/21/2021 07/21/2022 1 1 [facility] for visit Narrative* Outpatient Procedure [...] MINUTE WALK CARDIOPULMONARY EXERCISE STRESS Landen Mahmood APRN.[employer] [address] [place] [address] [facility] [address] [place] [address] Referral ID Status Reason Start Date Expiration Date V isits Requested Visits Authorized [id number] Closed Auto-Generate d Referral 09/19/2021 10/19/2022 1 1 [facility] for visit Narrative* Diagnostic Procedure Only (Routine) - Closed Specialty Diagnoses / Procedures Referred By Leviac t Referred To Contact US IMAGING Diagnoses Chronic RLQ pain Procedures US PELVIS LTD US PELVIC NONOBSTETRIC IMAGE DCMTN LIMITED/F/[place] [address] [place] [address] Us Imaging [facility] Referral ID Status Reason Start Date Expiration Date V isits Requested Visits Authorized [id number] Closed Auto-Generate d Referral 08/16/2021 09/15/2022 1 1 [facility] for visit Narrative* Cardiology (Routine) - Closed Specialty Diagnoses / Procedures Referred By Contac t Referred To Contact Cardiology Diagnoses Edema, unspecified type Palpitations with regular cardiac rhythm Procedures Echo (TTE) complete (PRN contrast/bubble/strain/3D) IL ECHO TTHRC R-T 2D W/WOM-MODE COMPL SPEC&COLR D IL TTE W OR WO FOL WCON,DOPPLER Macrina Wadsworth, LIO - [employer]ER [address] [place] [address] Phone: tel: fax: Referral ID Status Reason Start Date Expiration Date Visits Re quested Visits Authorized [id number] Closed 08/18/2024 08/15/2025 1 1 [facility] Advance Directives Documents on File Type Date Recorded Patient Bed And Breakfast Cook Expl anation ACP-Advance Directive ACP-Power of Toll Gate Tender Latest Code Status on File Code Status Date Activated Date Inactivated Comments Full Code 12/30/2011 10:09 AM 12/31/2011 4:00 PM Documents on File Type Date Recorded Patient Bed And Breakfast Cook Expl anation Advance Directive(s) 05/18/2015 10:11 AM Advance Directive(s) 05/14/2015 12:11 PM Documents on File Type Date Recorded Patient Bed And Breakfast Cook Expl anation Advance Directive(s) 06/27/2021 1:27 PM Advance Directive(s) 05/18/2015 10:11 AM Advance Directive(s) 05/14/2015 12:11 PM Documents on File Type Date Recorded Patient Bed And Breakfast Cook Expl anation Advance Directive(s) 06/27/2021 1:27 PM Advance Directive(s) 05/18/2015 10:11 AM Advance Directive(s) 05/14/2015 12:11 PM Documents on File Type Date Recorded Patient Bed And Breakfast Cook Expl anation ACP-Advance Directive 01/12/2022 2:29 PM ACP-Power of Toll Gate Tender 01/12/2022 2:29 PM Latest Code Status on File Code Status Date Activated Date Inactivated Comments Full Code 01/08/2022 5:06 PM 01/11/2022 3:07 PM Full Code 12/30/2011 10:09 AM 12/31/2011 4:00 PM Healthcare Agents on File Name Relationship Healthcare Agent Relationship Communication Sean Tran Spouse Primary Decision Maker Documents on File Type Date Recorded Patient Bed And Breakfast Cook Expl anation ACP-Advance Directive 01/12/2022 2:29 PM ACP-Power of Toll Gate Tender 01/12/2022 2:29 PM Date Activated Date Inactivated [...] laterality Akathisia Procedures CONSULT TO NEUROLOGY OFFICE/OUTPATIENT [facility] 60-74 MINUTES Peter Knight, RIB BUILDER.ASSISTANT [employer]ANT CONTROLLER [address] [place] [address] Referral ID Status Reason Start Date Expiration Date Visits Requested Visits Authorized [id number] Authorized PCP Requested Referral 06/27/2021 06/27/2022 1 1 Specialty Diagnoses / Procedures Referred By Sabas harris Referred To Contact Ent - Otolaryngology Diagnoses Maxillary sinus cyst Procedures CONSULT TO ENT OFFICE/OUTPATIENT [facility] 60-74 MINUTES Peter Knight APRN.CNP [address] [place] [address] Referral ID Status Reason Start Date Expiration Date Visits Requested Visits Authorized [id number] Authorized PCP Requested Referral 06/27/2021 06/27/2022 1 1 Specialty Diagnoses / Procedures Referred By Contac t Referred To Contact Diagnoses Coagulopathy (HCC) Qualitative platelet disorder (HCC) Procedures CONSULT TO MEDICAL GENETICS - GENERAL OFFICE/OUTPATIENT [facility] 60-74 MINUTES MEDICAL GENETICS COUNSELING EACH 30 MINUTES Yan Bass MD [address] [place] [address] [place] [address] [facility] [address] [place] [address] Referral ID Status Reason Start Date Expiration Date Visits Requested Visits Authorized [id number] Authorized PCP Requested Referral Auto-Generate d Referral 07/01/2021 07/01/2022 1 1 Specialty Diagnoses / Procedures Referred By Contac t Referred To Contact Psychology Diagnoses Intractable chronic migraine without aura and without status migrainosus Abnormal involuntary movement Procedures CONSULT TO PSYCHOLOGY OFFICE/OUTPATIENT [facility] 60-74 MINUTES Tracee Mcintyre MD [address] [place] [address] Referral ID Status Reason Start Date Expiration Date Visits Requested Visits Authorized [id number] Pending Review PCP Requested Referral 07/06/2021 07/06/2022 1 1 Specialty Diagnoses / Procedures Referred By Contac t Referred To Contact [facility] Diagnoses Intractable chronic migraine without aura and without status migrainosus Abnormal involuntary movement Procedures CONSULT TO PHYSICAL THERAPY PHYSICAL THERAPY EVALUATION HIGH COMPLEX 45 MINS Tracee Mcintyre MD [address] [place] [address] [facility] [address] [address] Referral ID Status Reason Start Date Expiration Date Visits Requested Visits Authorized [id number] Pending Review Auto-Generat ed Referral 07/06/2021 07/06/2022 1 1 Specialty Diagnoses / Procedures Referred By Contac t Referred To Contact Allergy Diagnoses Allergy, initial encounter Procedures CONSULT TO ALLERGY/IMMUNOLOGY OFFICE/OUTPATIENT [facility] 60-74 MINUTES Aldo Ann MD [address] [place] [address] Referral ID Status Reason Start Date Expiration Date Visits Requested Visits Authorized [id number] Authorized PCP Requested Referral 07/14/2021 07/14/2022 1 1 Specialty Diagnoses / Procedures Referred By Contac t Referred To Contact [facility] History of COVID-19 Procedures [facility] Sai Perez MD [address] [place] [address] Pulm Covid Recov [facility] [address] [place] [address] Referral ID Status Reason Start Date Expiration Date Visits Requested Visits Authorized [id number] Authorized PCP Requested Referral 07/21/2021 07/21/2022 1 1 Specialty Diagnoses / Procedures Referred By Contac t Referred To Contact [facility] Diagnoses Symptomatic bradycardia Blood pressure instability History of COVID-19 Procedures ECHO ECHO TTHRC R-T 2D W/WOM-MODE COMPL SPEC&COLR D Sai Perez MD [address] [place] [address] [facility] [address] [place] [address] Referral ID Status Reason Start Date Expiration Date Visits Requested Visits Authorized [id number] Authorized Auto-Generat ed Referral 07/21/2021 07/21/2022 1 1 Specialty Diagnoses / Procedures Referred By Contac t Referred To Contact Ent - Otolaryngology Diagnoses Hoarseness of voice Procedures CONSULT TO ENT OFFICE/OUTPATIENT [facility] 60-74 MINUTES Henny Rushing MD [address] [place] [address] Rc Cardenas, PhD, [facility] [facility] [address] [place] [address] Referral ID Status Reason Start Date Expiration Date Visits Requested Visits Authorized [id number] Authorized PCP Requested Referral 07/25/2021 07/25/2022 1 1 Specialty Diagnoses / Procedures Referred By Contac t Referred To Contact Diagnoses Diffuse pain Decreased activity tolerance Physical deconditioning Procedures WELLNESS CONSULT OFFICE/OUTPATIENT [facility] 60-74 MINUTES Peter Knight APRN.CNP [address] [place] [id number] Referral ID Status Reason Start Date Expiration Date Visits Requested Visits Authorized [id number] Authorized PCP Requested Referral 08/23/2021 08/23/2022 1 1 Specialty Diagnoses / Procedures Referred By Contac t Referred To Contact Diagnoses Long COVID PTSD (post-traumatic stress disorder) Procedures MIND/BODY HOLISTIC PSYCHOTHERAPY OFFICE/OUTPATIENT [facility] 60-74 MINUTES Ayaka Bright MD [facility] [address] [place] [address] Referral ID Status Reason Start Date Expiration Date Visits Requested Visits Authorized [id number] Authorized PCP Requested Referral 08/30/2021 08/30/2022 1 1 Specialty Diagnoses / Procedures Referred By Contac t Referred To Contact Diagnoses Long COVID Diffuse pain Decreased activity tolerance Procedures CONSULT TO [facility] AT [facility] OFFICE/OUTPATIENT [facility] 60-74 MINUTES Ayaka Bright MD [facility] [address] [place] [id number] Referral ID Status Reason Start Date Expiration Date Visits Requested Visits Authorized [id number] Authorized PCP Requested Referral 08/30/2021 08/30/2022 1 1 Specialty Diagnoses / Procedures Referred By Contac t Referred To Contact Diagnoses Chronic migraine without aura, intractable, without status migrainosus Procedures PROVIDER ORDERED FOLLOW UP OFFICE/OUTPATIENT [facility] 60-74 MINUTES Bhargavi Ramesh PA-C [address] [place] [phone] Referral ID Status Reason Start Date Expiration Date Visits Requested Visits Authorized [id number] Authorized PCP Requested Referral 10/19/2022 1 1 Specialty Diagnoses / Procedures Referred By Contac t Referred To Contact Hematology Diagnoses Lymphadenopathy Night sweats Procedures CONSULT TO HEMATOLOGY OFFICE/OUTPATIENT [facility] 60-74 MINUTES Henny Rushing MD [address] [address] Referral ID Status Reason Start Date Expiration Date Visits Requested Visits Authorized [id number] Authorized PCP Requested Referral 10/24/2021 10/24/2022 1 1 Specialty Diagnoses / Procedures Referred By Contac t Referred To Contact Diagnoses Migraine without aura and without status migrainosus, not intractable Procedures PROVIDER ORDERED FOLLOW UP OFFICE/OUTPATIENT [facility] 60-74 MINUTES Bhargavi Ramesh PA-C [address] [place] [address] Referral ID Status Reason Start Date Expiration Date Visits Requested Visits Authorized [id number] Authorized PCP Requested Referral 04/16/2022 01/16/2023 1 1 Specialty Diagnoses / Procedures Referred By Contac t Referred To Contact Cardiology Diagnoses 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) Coagulopathy (HCC) Procedures CONSULT TO CARDIOLOGY OFFICE/OUTPATIENT [facility] 60-74 MINUTES Fuentes Amaral MD [address] [place] [address] [place] [address] Referral ID Status Reason Start Date Expiration Date Visits Requested Visits Authorized [id number] Authorized PCP Requested Referral 02/16/2022 02/16/2023 1 1 Referral ID Status Reason Start Date Expiration Date Visits Requested Visits Authorized [id number] Authorized PCP Requested Referral 10/27/2022 04/26/2023 1 1 Specialty Diagnoses / Procedures Referred By Contac t Referred To Contact Diagnoses Moderate asthma without complication, unspecified whether persistent Procedures Full PFT Study With Bronchodilator Nabor Yancey, RIB BUILDER - ASSISTANT PLANT CONTROLLER [address] [address] Referral ID Status Reason Start Date Expiration Date V isits Requested Visits Authorized [id number] Not Required - RTA 12/04/2023 12/03/2024 1 1 Chief Complaint and Reason for Visit Chief Complaint Admit Date Right forearm pain x2 weeks post fall Au victoriano 2024 11:37am S59.911A - Unspecified injury of [...] Comments 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 Pt used epi-pen prior to arrival and reports feeling short of breath Reason Comments surgery clearence Reason Comments Adrenal Specialty Diagnoses / Procedures Referred By Contac t Referred To Contact Endocrinology Diagnoses Symptomatic bradycardia Blood pressure instability Procedures CONSULT TO ENDOCRINOLOGY OFFICE/OUTPATIENT [facility] 60-74 MINUTES Peter Knight APRN.[facility] [address] [place] [address] Referral ID Status Reason Start Date Expiration Date V isits Requested Visits Authorized [id number] Closed PCP Requested Referral 05/24/2021 05/24/2022 1 [...] CONSULT TO MEDICAL GENETICS - GENERAL OFFICE/OUTPATIENT [facility] 60-74 MINUTES MEDICAL GENETICS COUNSELING EACH 30 MINUTES Yan Bass MD [address] [place] [address] [place] [address] [facility] [place] [address] [place] [address] Referral ID Status Reason Start Date Expiration Date V isits Requested Visits Authorized [id number] Closed PCP Requested Referral Auto-Generated Referral 07/01/2021 07/01/2022 1 1 Reason Comments Coagulopathy Specialty Diagnoses / Procedures Referred By Contac t Referred To Contact Cardiology Diagnoses Symptomatic bradycardia Blood pressure instability Procedures CONSULT TO CARDIOLOGY OFFICE/OUTPATIENT [facility] 60-74 MINUTES Peter Knight APRN.[employer] [address] [place] [address] Referral ID Status Reason Start Date Expiration Date V isits Requested Visits Authorized [id number] Closed PCP Requested Referral 05/24/2021 05/24/2022 1 1 Reason Comments Allergies Asthma Reason Comments Follow Up Chronic Migraine Reason Comments Consult Specialty Diagnoses / Procedures Referred By Contac t Referred To Contact Psychology Diagnoses Intractable chronic migraine without aura and without status migrainosus Abnormal involuntary movement Procedures CONSULT TO PSYCHOLOGY OFFICE/OUTPATIENT [facility] 60-74 MINUTES Tracee Mcintyre MD [address] [place] [phone] Referral ID Status Reason Start Date Expiration Date Visits Requested Visits Authorized [id number] Pending Review PCP Requested Referral 07/06/2021 07/06/2022 [...] HIGH COMPLEX 45 MINS Tracee Mcintyre MD [address] [place] [phone] [facility] [address] [address] Referral ID Status Reason Start Date Expiration Date V isits Requested Visits Authorized [id number] Authorized 02/05/2021 02/04/2022 99 99 Reason Comments Consult rt. ing hernia Reason Comments Insurance Authorization Emgality 120MG/M L syringes (migraine) Reason Comments Established Patient Follow-Up Reason Comments Results - Ct Reason Comments Covid19 Concern Specialty Diagnoses / Procedures Referred By Contac t Referred To Contact Diagnoses Diffuse pain Decreased activity tolerance Physical deconditioning Procedures WELLNESS CONSULT OFFICE/OUTPATIENT [facility] 60-74 MINUTES Peter Knight, LIO.ASSISTANT PLANT CONTROLLER [address] [place] [address] Referral ID Status Reason Start Date Expiration Date V isits Requested Visits Authorized [id number] Closed PCP Requested Referral 08/23/2021 08/23/2022 1 1 Reason Comments Allergic Reaction Onset prior to arriv al. Pt reports her face is burning and feels short of breath. 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 She states her lymph nodes were swollen at that visit. Patient states had COVID 10/2020. She states her bones feel like someone is scraping them. Patient states she will pours out sweat or is freezing symptoms started in May/June and getting a lot worse now. Reason Comments Spirometry Specialty Diagnoses / Procedures [facility] Diagnoses History of COVID-19 Post-acute sequelae of COVID-19 (PASC) SOB (shortness of breath) Chronic cough Chest discomfort Palpitation CAVANAUGH (dyspnea on exertion) Dizziness Near syncope Night sweats Orthopnea Anxiety Myalgia Pain in joint, multiple sites Procedures LUNG DIFFUSION CAPACITY (DLCO) DIFFUSING CAPACITY Landen Mahmood APRN.[employer]SISTANT [employer]ANT CONTROLLER [address] [place] [address] [facility] [place] [address] [place] [address] Referral ID Status Reason Start Date Expiration Date V isits Requested Visits Authorized [id number] Closed Auto-Generate d Referral 09/19/2021 10/19/2022 1 [...] BRNCDILAT RSPSE SPMTRY PRE&POST-BRNCDILAT ADMN Landen Mahmood APRN.[employer]SI[employer] [address] [place] [address] [facility] [place] [address] [place] [address] Referral ID Status Reason Start Date Expiration Date V isits Requested Visits Authorized [id number] Closed Auto-Generate d Referral 09/19/2021 10/19/2022 1 [...] PLETHYSMOGRAPHY LUNG VOLUMES W/WO AIRWAY RESIST Landen Mahmood, LIO.ASSISTANT PLANT CONTROLLER [address] [place] [address] [facility] [place] [address] [place] [id number] Referral ID Status Reason Start Date Expiration Date V isits Requested Visits Authorized [id number] Closed Auto-Generate d Referral 09/21/2021 02/04/2022 1 1 Reason Comments Radio Gen A21 Reason Comments discuss test results Reason Comments Follow Up Chronic Migraine Reason Comments Palpitations Reason Comments Allergic Rhinitis Asthma Reason Comments coagulpathy Reason Comments Established Patient Reason Comments Appointment Download Pap Therapy Follow UP 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 Comments 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 Reason Comments Sleep Apnea Reason Comments Breast screening Reason Comments Patient Update Reason Comments Follow Up Migraine Specialty Diagnoses / Procedures Referred By Contac t Referred To Contact Diagnoses Chronic migraine without aura, intractable, without status migrainosus Procedures PROVIDER ORDERED FOLLOW UP OFFICE/OUTPATIENT NEW HIGH MDM 60-74 MINUTES Bhargavi Ramesh PA-C [address] [place] [address] Referral ID Status Reason Start Date Expiration Date V isits Requested Visits Authorized [id number] Closed PCP Requested Referral 01/18/2022 10/19/2022 1 [...] MDM 60-74 MINUTES Bhargavi Ramesh PA-C [address] [place] [address] Referral ID Status Reason Start Date Expiration Date V isits Requested Visits Authorized [id number] Closed PCP Requested Referral 04/16/2022 01/16/2023 1 [...] Allergy Diagnoses Allergic reaction, subsequent encounter Procedures [place] OFFICE/OUTPATIENT NEW HIGH MDM 60 MINUTES Cas Dowell MD [address] [place] [address] Christy Painting MD [address] [facility] [place] [address] [place] [address] Referral ID Status Reason Start Date Expiration Date Visits Requested Visits Authorized [id number] Pending Review Specialty Services Required 09/26/2023 03/24/2024 1 1 Reason Comments Well Women Visit Specialty Diagnoses / Procedures Referred By Contac t Referred To Contact Diagnoses Moderate asthma without complication, unspecified whether persistent Procedures Full PFT Study With Bronchodilator Nabor Yancey, RIB BUILDER - ASSISTANT PLANT CONTROLLER [address] [address] Referral ID Status Reason Start Date Expiration Date V isits Requested Visits Authorized [id number] Not Required - RTA 12/04/2023 12/03/2024 1 1 Reason Comments Follow-up Er f/up allergic akshat ction Reason Comments Follow-up 6 m Reason Comments Follow-up 3m Reason Comments Med Refill Reason Comments Follow-up [facility] er f/upCovid + Head feel funny Reason [...] Reason Onset Date Comments Med Refill 05/18/2024 Reason Comments chronic rhinosinusitis Right nostril Specialty Diagnoses / Procedures Referred By Sabas harris Referred To Contact Otolaryngology Diagnoses Chronic rhinosinusitis Procedures [place] OFFICE OUTPATIENT VISIT 60-74 MINS HIGH MDM [id number] (SNOMED CT) - AMB REFERRAL TO ENT Cas Dowell MD [address] [place] [address] Phone: tel: fax: Terri Han MD [address] [facility] [address] [place] [address] Phone: tel: fax: Referral ID Status Reason Start Date Expiration Date V isits Requested Visits Authorized [id number] Pending Review 09/25/2024 03/24/2025 1 1 Ordered Prescriptions (unrec ognized section [...] plz 2221 (Given - Provid er: Luisana Reeedr RN) ondansetron (ZOFRAN) injection 4 mg (COMPLETED) [...] 1634 (Given - Provid er: Pallavi Galan [facility]) diphenhydrAMINE (BENADRYL) injection 50 mg (COMPLETED) 50 [...] DATE CREATED AUTHOR AUTHOR'S ORGANIZ ATION 04/26/2021 [facility] DATE CREATED AUTHOR AUTHOR'S ORGANIZ ATION 07/27/2021 [facility] DATE CREATED AUTHOR AUTHOR'S ORGANIZ ATION 12/22/2021 [facility] DATE CREATED AUTHOR AUTHOR'S ORGANIZ ATION 04/07/2022 [facility] DATE CREATED AUTHOR AUTHOR'S ORGANIZ ATION 06/17/2022 [facility] DATE CREATED AUTHOR AUTHOR'S ORGANIZ ATION 01/05/2024 [facility] DATE CREATED AUTHOR AUTHOR'S ORGANIZ ATION 02/07/2024 [facility] DATE CREATED AUTHOR AUTHOR'S ORGANIZ ATION 05/11/2024 [facility] DATE CREATED AUTHOR AUTHOR'S ORGANIZ ATION 08/25/2024 [facility] DATE CREATED AUTHOR AUTHOR'S ORGANIZ ATION 09/10/2024 [facility] DATE CREATED AUTHOR AUTHOR'S ORGANIZ ATION 09/27/2024 [facility] dical Specialists [facility] DATE CREATED AUTHOR AUTHOR'S ORGANIZ ATION 09/29/[address] [facility] DATE CREATED AUTHOR AUTHOR'S ORGANIZ ATION 10/01/2024 [facility] DATE CREATED AUTHOR AUTHOR'S ORGANIZ ATION 10/12/2024 [facility] DATE CREATED AUTHOR AUTHOR'S ORGANIZ ATION 10/29/2024 [facility] Care Teams (unrecognized sec tion and content) Burn Out Scarfing Operator Relationship Specialty Start Date End Date Cas Dowell MD PCP - General 09/04/11 Burn Out Scarfing Operator Relationship Specialty Start Date End Date Cas Dowell MD PCP - General 09/04/11 Burn Out Scarfing Operator Relationship Specialty Start Date End Date Cas Dowell PCP - General Family Practice 02/20/14 Burn Out Scarfing Operator Relationship Specialty Start Date End Date Cas Dowell MD PCP - General 09/04/11 Burn Out Scarfing Operator Relationship Specialty Start Date End Date NadCas howe PCP - General Family Practice 02/20/14 Burn Out Scarfing Operator Relationship Specialty Start Date End Date GabrielaCas almonte PCP - General Family Practice 02/20/14 Burn Out Scarfing Operator Relationship Specialty Start Date End Date Cas Dowell PCP - General Family Practice 02/20/14 Burn Out Scarfing Operator Relationship Specialty Start Date End Date NadelCas almonte PCP - General Family Practice 02/20/14 Burn Out Scarfing Operator Relationship Specialty Start Date End Date Cas Dowell PCP - General Family Practice 02/20/14 Burn Out Scarfing Operator Relationship Specialty Start Date End Date Cas Dowell PCP - General Family Practice 02/20/14 Burn Out Scarfing Operator Relationship Specialty Start Date End Date Cas Dowell PCP - General Family Practice 02/20/14 Burn Out Scarfing Operator Relationship Specialty Start Date End Date Cas Dowell MD PCP - General 09/04/11 Burn Out Scarfing Operator Relationship Specialty Start Date End Date Cas Dowell PCP - General Family Practice 02/20/14 Burn Out Scarfing Operator Relationship Specialty Start Date End Date Cas Dowell PCP - General Family Practice 02/20/14 Burn Out Scarfing Operator Relationship Specialty Start Date End Date Cas Dowell PCP - General Family Practice 02/20/14 Burn Out Scarfing Operator Relationship Specialty Start Date End Date Cas Dowell PCP - General Family Practice 02/20/14 Burn Out Scarfing Operator Relationship Specialty Start Date End Date Cas Dowell PCP - General Family Practice 02/20/14 Burn Out Scarfing Operator Relationship Specialty Start Date End Date Cas Dowell PCP - General Family Practice 02/20/14 Burn Out Scarfing Operator Relationship Specialty Start Date End Date Cas Dowell PCP - General Family Practice 02/20/14 Burn Out Scarfing Operator Relationship Specialty Start Date End Date Cas Dowell PCP - General Family Practice 02/20/14 Sai Perez MD [address] [place] [address] Primary Staff Physician Cardiology 07/21/21 Burn Out Scarfing Operator Relationship Specialty Start Date End Date Cas Dowell PCP - General Family Practice 02/20/14 Sai Perez MD [address] [place] [address] Primary Staff Physician Cardiology 07/21/21 Burn Out Scarfing Operator Relationship Specialty Start Date End Date Cas Dowell PCP - General Family Practice 02/20/14 Sai Perez MD [address] [place], [place] [id number] Primary Staff Physician Cardiology 07/21/21 Burn Out Scarfing Operator Relationship Specialty Start Date End Date Cas Dowell PCP - General Family Practice 02/20/14 Burn Out Scarfing Operator Relationship Specialty Start Date End Date Cas Dowell PCP - [facility] Practice 02/20/14 Sai Perez MD [address] [place], [place] [address] Primary Staff Physician Cardiology 07/21/21 Burn Out Scarfing Operator Relationship Specialty Start Date End Date Cas Dowell PCP - [facility] Practice 02/20/14 Sai Perez MD [address] [place] [address] Primary Staff Physician Cardiology 07/21/21 Burn Out Scarfing Operator Relationship Specialty Start Date End Date Cas Dowell PCP - [facility] Practice 02/20/14 Sai Perez MD [address] [place] [address] Primary Staff Physician Cardiology 07/21/21 Rubens Tim [address] [place], [place] [address] [place] [place] [address] Referring ROLLED OATS MILL OPERATOR 08/05/21 Burn Out Scarfing Operator Relationship Specialty Start Date End Date Cas Dowell PCP - General [facility] Practice 02/20/14 Sai Perez MD [address] [place] [address] Primary Staff Physician Cardiology 07/21/21 Rubens Tim [address] [place], [place] [address] [place] [place] [address] Referring ROLLED OATS MILL OPERATOR 08/05/21 Burn Out Scarfing Operator Relationship Specialty Start Date End Date Cas Dowell PCP - General Family Practice 02/20/14 Sai Perez MD [address] [place] [address] Primary Staff Physician Cardiology 07/21/21 Rubens Tim [address] [place], [place] [address], [place] [id number] Referring ROLLED OATS MILL OPERATOR 08/05/21 Burn Out Scarfing Operator Relationship Specialty Start Date End Date Cas Dowell PCP - General Family Practice 02/20/14 Sai Perez MD [address] [place] [address] Primary Staff Physician Cardiology 07/21/21 Rubens Tim [address] [place], [place] [address]D[place], [facility] Referring ROLLED OATS MILL OPERATOR 08/05/21 Burn Out Scarfing Operator Relationship Specialty Start Date End Date Cas Dowell PCP - General Family Practice 02/20/14 Sai Perez MD [address] [place] [address] Primary Staff Physician Cardiology 07/21/21 Rubens Tim [address] [place], [place] [address] [place], [facility] Referring ROLLED OATS MILL OPERATOR 08/05/21 Burn Out Scarfing Operator Relationship Specialty Start Date End Date Cas Dowell PCP - General Family Practice 02/20/14 Sai Perez MD [address] [place] [address] Primary Staff Physician Cardiology 07/21/21 Rubens Tim [address] [place] [address] Referring ROLLED OATS MILL OPERATOR 08/05/21 Burn Out Scarfing Operator Relationship Specialty Start Date End Date Cas Dowell PCP - General Family Practice 02/20/14 Sai Perez MD [address] [place] [address] Primary Staff Physician Cardiology 07/21/21 Rubens Tim, DO [address] [place] [address] Referring ROLLED OATS MILL OPERATOR 08/05/21 Burn Out Scarfing Operator Relationship Specialty Start Date End Date Cas Dowell PCP - General Family Practice 02/20/14 Sai Perez MD [address] [place] [address] Primary Staff Physician Cardiology 07/21/21 Rubens Tim, DO [address] [place] [address] Referring ROLLED OATS MILL OPERATOR 08/05/21 Burn Out Scarfing Operator Relationship Specialty Start Date End Date Cas Dowell PCP - General Family Practice 02/20/14 Sai Perez MD [address] [place] [address] Primary Staff Physician Cardiology 07/21/21 Rubens Tim, DO [address] [place] [address] Referring ROLLED OATS MILL OPERATOR 08/05/21 Burn Out Scarfing Operator Relationship Specialty Start Date End Date Cas Dowell PCP - General Family Practice 02/20/14 Sai Perez MD [address] [place] [address] Primary Staff Physician Cardiology 07/21/21 Rubens Tim, [address] [place], [place] [address] Referring ROLLED OATS MILL OPERATOR 08/05/21 Burn Out Scarfing Operator Relationship Specialty Start Date End Date Cas Dowell PCP - General [facility] Practice 02/20/14 Sai Perez MD [address] [place] [address] Primary Staff Physician Cardiology 07/21/21 Rubens Tim, DO [address] [place], [place] [address] Referring ROLLED OATS MILL OPERATOR 08/05/21 Burn Out Scarfing Operator Relationship Specialty Start Date End Date Cas Dowell MD PCP - General 09/04/11 Burn Out Scarfing Operator Relationship Specialty Start Date End Date Cas Dowell PCP - General Family Practice 02/20/14 Sai Perez MD [address] [place] [address] Primary Staff Physician Cardiology 07/21/21 Rubens Tim, DO [address] [place] [address] Referring ROLLED OATS MILL OPERATOR 08/05/21 Burn Out Scarfing Operator Relationship Specialty Start Date End Date Cas Dowell PCP - General Family Practice 02/20/14 Sai Perez MD [address] [place] [address] Primary Staff Physician Cardiology 07/21/21 Rubens Tim, DO [address] [place] [address] Referring ROLLED OATS MILL OPERATOR 08/05/21 Burn Out Scarfing Operator Relationship Specialty Start Date End Date Cas Dowell PCP - General Family Practice 02/20/14 Sai Perez MD [address] [place] [address] Primary Staff Physician Cardiology 07/21/21 Rubens Tim, DO [address] [place], [facility]11 Referring ROLLED OATS MILL OPERATOR 08/05/21 Burn Out Scarfing Operator Relationship Specialty Start Date End Date Cas Dowell PCP - General Family Practice 02/20/14 Sai Perez MD [address] [place] [address] Primary Staff Physician Cardiology 07/21/21 Rubens Tim, DO [address] [place], [facility]11 Referring ROLLED OATS MILL OPERATOR 08/05/21 Burn Out Scarfing Operator Relationship Specialty Start Date End Date Cas Dowell PCP - General Family Practice 02/20/14 Sai Perez MD [address] [place] [address] Primary Staff Physician Cardiology 07/21/21 Rubens Tim, DO [address] [place] [address] Referring ROLLED OATS MILL OPERATOR 08/05/21 Burn Out Scarfing Operator Relationship Specialty Start Date End Date Cas Dowell PCP - General Family Practice 02/20/14 Sai Perez MD [address] [place] [address] Primary Staff Physician Cardiology 07/21/21 Rubens Tim, DO [address] [place] [address] Referring ROLLED OATS MILL OPERATOR 08/05/21 Burn Out Scarfing Operator Relationship Specialty Start Date End Date Cas Dowell PCP - General Family Practice 02/20/14 Sai Perez MD [address] [place] [address] Primary Staff Physician Cardiology 07/21/21 Rubens Tim, DO [address] [place] [address] Referring ROLLED OATS MILL OPERATOR 08/05/21 Burn Out Scarfing Operator Relationship Specialty Start Date End Date Cas Dowell PCP - General Family Practice 02/20/14 Sai Perez MD [address] [place] [address] Primary Staff Physician Cardiology 07/21/21 Rubens Tim, DO [address] [place] [address] Referring ROLLED OATS MILL OPERATOR 08/05/21 Burn Out Scarfing Operator Relationship Specialty Start Date End Date Cas Dowell PCP - General Family Practice 02/20/14 Sai Perez MD [address] [place] [address] Primary Staff Physician Cardiology 07/21/21 Rubens Tim, DO [address] [place] [address] Referring ROLLED OATS MILL OPERATOR 08/05/21 Burn Out Scarfing Operator Relationship Specialty Start Date End Date Cas Dowell PCP - General Family Practice 02/20/14 Sai Perez MD [address] [place] [address] Primary Staff Physician Cardiology 07/21/21 Rubens Tim, DO [address] [place], [place] [address] Referring ROLLED OATS MILL OPERATOR 08/05/21 Burn Out Scarfing Operator Relationship Specialty Start Date End Date aCs Dowell PCP - General Family Practice 02/20/14 Sai Perez MD [address] [place] [address] Primary Staff Physician Cardiology 07/21/21 Rubens Tim, DO [address] [place] [address] Referring ROLLED OATS MILL OPERATOR 08/05/21 Burn Out Scarfing Operator Relationship Specialty Start Date End Date Cas Dowell PCP - General Family Practice 02/20/14 Sai Perez MD [address] [place] [address] Primary Staff Physician Cardiology 07/21/21 Rubens Tim, DO [address] [place] [address] Referring ROLLED OATS MILL OPERATOR 08/05/21 Burn Out Scarfing Operator Relationship Specialty Start Date End Date Cas Dowell PCP - General Family Medicine 02/20/14 Sai Perez MD [address] [place] [address] Primary Staff Physician Cardiology 07/21/21 Rubens Tim, DO [address] [place] [address] Referring ROLLED OATS MILL OPERATOR 08/05/21 Burn Out Scarfing Operator Relationship Specialty Start Date End Date Cas Dowell PCP - General Family Medicine 02/20/14 Sai Perez MD [address] [place] [address] Primary Staff Physician Cardiology 07/21/21 Rubens Tim, DO [address] [place] [address] Referring ROLLED OATS MILL OPERATOR 08/05/21 Burn Out Scarfing Operator Relationship Specialty Start Date End Date Cas Dowell PCP - General Family Medicine 02/20/14 Sai Perez MD [address] [place] [address] Primary Staff Physician Cardiology 07/21/21 Rubens Tim, DO [address] [place] [address] Referring ROLLED OATS MILL OPERATOR 08/05/21 Burn Out Scarfing Operator Relationship Specialty Start Date End Date Cas Dowell PCP - General Family Medicine 02/20/14 Sai Perez MD [address] [place] [address] Primary Staff Physician Cardiology 07/21/21 Rubens Tim, [address] [place] [address] Referring ROLLED OATS MILL OPERATOR 08/05/21 Burn Out Scarfing Operator Relationship Specialty Start Date End Date Cas Dowell PCP - General Family Medicine 02/20/14 Sai Perez MD [address] [place] [address] Primary Staff Physician Cardiology 07/21/21 Rubens Tim, DO [address] [place], [facility]11 Referring ROLLED OATS MILL OPERATOR 08/05/21 Burn Out Scarfing Operator Relationship Specialty Start Date End Date Cas Dowell PCP - General Family Medicine 02/20/14 Sai Perez MD [address] [place] [address] Primary Staff Physician Cardiology 07/21/21 Rubens Tim, DO [address] [place], [place] [address] Referring ROLLED OATS MILL OPERATOR 08/05/21 Burn Out Scarfing Operator Relationship Specialty Start Date End Date Cas Dowell PCP - General Family Medicine 02/20/14 Sai Perez MD [address] [place] [id number] Primary Staff Physician Cardiology 07/21/21 Rubens Tim, DO [address] [place] [address] Referring ROLLED OATS MILL OPERATOR 08/05/21 Burn Out Scarfing Operator Relationship Specialty Start Date End Date Cas Dowell PCP - General Family Medicine 02/20/14 Sai Perez MD [address] [place] [address] Primary Staff Physician Cardiology 07/21/21 Rubens Tim, DO [address] [place], [facility]11 Referring ROLLED OATS MILL OPERATOR 08/05/21 Burn Out Scarfing Operator Relationship Specialty Start Date End Date Cas Dowell PCP - General Family Medicine 02/20/14 Sai Perez MD [address] [place] [address] Primary Staff Physician Cardiology 07/21/21 Rubens Tim, DO [address] [place], [facility]11 Referring ROLLED OATS MILL OPERATOR 08/05/21 Burn Out Scarfing Operator Relationship Specialty Start Date End Date Cas Dowell PCP - General Family Medicine 02/20/14 Sai Perez MD [address] [place] [address] Primary Staff Physician Cardiology 07/21/21 Rubens Tim, DO [address] [place] [address] Referring ROLLED OATS MILL OPERATOR 08/05/21 Burn Out Scarfing Operator Relationship Specialty Start Date End Date Cas Dowell PCP - General Family Medicine 02/20/14 Sai Perez MD [address] [place] [address] Primary Staff Physician Cardiology 07/21/21 Rubens Tim, DO [address] [place], [place] [id number] Referring ROLLED OATS MILL OPERATOR 08/05/21 Burn Out Scarfing Operator Relationship Specialty Start Date End Date Cas Dowell PCP - General Family [facility] 02/20/14 Sai Perez MD [address] [place] [address] Primary Staff Physician Cardiology 07/21/21 Rubens Tim, DO [address] [place], [facility]11 Referring ROLLED OATS MILL OPERATOR 08/05/21 Burn Out Scarfing Operator Relationship Specialty Start Date End Date Cas Dowell PCP - General Family Medicine 02/20/14 Sai Perez MD [address] [place] [address] Primary Staff Physician Cardiology 07/21/21 Rubens Tim, DO [address] [place] [address] Referring ROLLED OATS MILL OPERATOR 08/05/21 Burn Out Scarfing Operator Relationship Specialty Start Date End Date Cas Dowell MD PCP - General 7/30/12 Burn Out Scarfing Operator Relationship Specialty Start Date End Date Naderer, Cas A PCP - General Family Medicine 02/20/14 Sai Perez MD [address] [place] [address] Primary Staff Physician Cardiology 07/21/21 Rubens Tim, DO [address] [place], [facility]11 Referring ROLLED OATS MILL OPERATOR 08/05/21 Burn Out Scarfing Operator Relationship Specialty Start Date End Date Cas Dowell PCP - General Family Medicine 02/20/14 Sai Perez MD [address] [place] [address] Primary Staff Physician Cardiology 07/21/21 Rubens Tim, DO [address] [place] [address] Referring ROLLED OATS MILL OPERATOR 08/05/21 Burn Out Scarfing Operator Relationship Specialty Start Date End Date Cas Dowell PCP - General Family Medicine 02/20/14 Sai Perez MD [address] [place] [address] Primary Staff Physician Cardiology 07/21/21 Rubens Tim, DO [address] [place], [place] [id number] Referring ROLLED OATS MILL OPERATOR 08/05/21 Burn Out Scarfing Operator Relationship Specialty Start Date End Date Cas Dowell PCP - General Family Medicine 02/20/14 Sai Perez MD [address] [place] [address] Primary Staff Physician Cardiology 07/21/21 Rubens Tim, DO [address] [place], [facility]11 Referring ROLLED OATS MILL OPERATOR 08/05/21 Burn Out Scarfing Operator Relationship Specialty Start Date End Date Cas Dowell PCP - General Family Medicine 02/20/14 Sai Perez MD [address] [place] [address] Primary Staff Physician Cardiology 07/21/21 Rubens Tim, DO [address] [place], [place] [address] Referring ROLLED OATS MILL OPERATOR 08/05/21 Burn Out Scarfing Operator Relationship Specialty Start Date End Date Cas Dowell PCP - General Family Medicine 02/20/14 Sai Perez MD [address] [place] [address] Primary Staff Physician Cardiology 07/21/21 Rubens Tim, DO [address] [place], [facility]11 Referring ROLLED OATS MILL OPERATOR 08/05/21 Burn Out Scarfing Operator Relationship Specialty Start Date End Date Cas Dowell PCP - General Family Medicine 02/20/14 Sai Perez MD [address] [place] [address] Primary Staff Physician Cardiology 07/21/21 Rubens Tim, DO [address] [place], [facility]11 Referring ROLLED OATS MILL OPERATOR 08/05/21 Burn Out Scarfing Operator Relationship Specialty Start Date End Date Cas Dowell PCP - General Family Medicine 02/20/14 Sai Perez MD [address] [place], [place] [id number] Primary Staff Physician Cardiology 07/21/21 Rubens Tim, DO [address] [place], [place] [address] Referring ROLLED OATS MILL OPERATOR 08/05/21 Burn Out Scarfing Operator Relationship Specialty Start Date End Date Cas Dowell PCP - General Family Medicine 02/20/14 Sai Perez MD [address] [place] [address] Primary Staff Physician Cardiology 07/21/21 Rubens Tim, DO [address] [facility] [address] [place], [place] [address] Referring ROLLED OATS MILL OPERATOR 08/05/21 Burn Out Scarfing Operator Relationship Specialty Start Date End Date Cas Dowell PCP - General Family Medicine 02/20/14 Sai Perez MD [address] [place] [address] Primary Staff Physician Cardiology 07/21/21 Rubens Tim DO [address] [place] [address] [address] [place], [place] [address] Referring ROLLED OATS MILL OPERATOR 08/05/21 Burn Out Scarfing Operator Relationship Specialty Start Date End Date Cas Dowell MD PCP - General Family Medicine 12/06/22 Burn Out Scarfing Operator Relationship Specialty Start Date End Date Cas Dowell PCP - General Family Medicine 02/20/14 Sai Perez MD [address] [place] [address] Primary Staff Physician Cardiology 07/21/21 Rubens Tim DO [address] [place] [address] Referring Brim Welt Sewing Machine Operator 08/05/21 Burn Out Scarfing Operator Relationship Specialty Start Date End Date Cas Dowell PCP - General Family Medicine 02/20/14 Sai Perez MD [address] [place], [place] [id number] Primary Staff Physician Cardiology 07/21/21 Rubens Tim DO [address] [place], [place] [address] Referring Brim Welt Sewing Machine Operator 08/05/21 Burn Out Scarfing Operator Relationship Specialty Start Date End Date Cas Dowell MD [address] [place] [address] PCP - General Family Medicine 04/09/23 Burn Out Scarfing Operator Relationship Specialty Start Date End Date Cas Dowell MD [address] [place] [address] PCP - General Family Medicine 04/09/23 Burn Out Scarfing Operator Relationship Specialty Start Date End Date Cas Dowell MD [address] [place] [address] PCP - General Family Medicine 04/09/23 Burn Out Scarfing Operator Relationship Specialty Start Date End Date Cas Dowell MD [address] [place] [address] PCP - General Family Medicine 04/09/23 Burn Out Scarfing Operator Relationship Specialty Start Date End Date Cas Dowell MD [address] [place] [address] PCP - General Family Medicine 04/09/23 Burn Out Scarfing Operator Relationship Specialty Start Date End Date Cas Dowell MD PCP - General 09/04/11 Burn Out Scarfing Operator Relationship Specialty Start Date End Date Cas Dowell MD PCP - General 09/04/11 Burn Out Scarfing Operator Relationship Specialty Start Date End Date Cas Dowell MD [address] [place] [address] PCP - General Family Medicine 04/09/23 Cas Dowell MD [address] [place] [address] PCP [facility] 11/06/23 Burn Out Scarfing Operator Relationship Specialty Start Date End Date Cas Dowell MD [address] [place] [address] PCP - General Family Medicine 04/09/23 Cas Dowell MD [address] [place] [address] PCP - [facility] 06/06/23 Burn Out Scarfing Operator Relationship Specialty Start Date End Date Cas Dowell MD [address] [place] [address] PCP - General Family Medicine 04/09/23 Cas Dowell MD [address] [place] [address] PCP - [facility] 06/06/23 Burn Out Scarfing Operator Relationship Specialty Start Date End Date Cas Dowell MD [address] [place] [address] PCP - General Family Medicine 04/09/23 Cas Dowell MD [address] [place] [address] PCP - [facility] 06/06/23 Burn Out Scarfing Operator Relationship Specialty Start Date End Date Cas Dowell MD [address] [place] [address] PCP - General Family Medicine 04/09/23 Cas Dowell MD [address] [place] [address] PCP - [facility] 06/06/23 Burn Out Scarfing Operator Relationship Specialty Start Date End Date Cas Dowell MD [address] [place] [address] PCP - General Family Medicine 04/09/23 Cas Dowell MD [address] [place] [address] PCP - [facility] 06/06/23 Burn Out Scarfing Operator Relationship Specialty Start Date End Date Cas Dowell MD [address] [place] [address] PCP - General Family Medicine 04/09/23 Cas Dowell MD [address] [place] [address] PCP - [facility] 11/06/23 Burn Out Scarfing Operator Relationship Specialty Start Date End Date Cas Dowell MD [address] [place] [address] PCP - General Family Medicine 04/09/23 Cas Dowell MD [address] [place] [address] PCP - [facility] 11/06/23 Burn Out Scarfing Operator Relationship Specialty Start Date End Date Cas Dowell MD [address] [place] [address] PCP - General Family Medicine 04/09/23 Cas Dowell MD [address] [place] [address] PCP - [facility] 11/06/23 Burn Out Scarfing Operator Relationship Specialty Start Date End Date Cas Dowell MD [address] [place] [address] PCP - General Family Medicine 04/09/23 Cas Dowell MD [address] [place] [address] PCP - [facility] 11/06/23 Burn Out Scarfing Operator Relationship Specialty Start Date End Date Cas Dowell MD PCP - General Family Medicine 11/18/20 Burn Out Scarfing Operator Relationship Specialty Start Date End Date Cas Dowell MD [address] [place] [address] PCP - General Family Medicine 04/09/23 Cas Dowell MD [address] [place] [address] PCP - [facility] 11/06/23 Burn Out Scarfing Operator Relationship Specialty Start Date End Date Cas Dowell MD [address] [place] [address] PCP - General Family Medicine 04/09/23 Cas Dowell MD [address] [place] [address] PCP - [facility] 11/06/23 Burn Out Scarfing Operator Relationship Specialty Start Date End Date Cas Dowell MD [address] [place] [address] PCP - General Family Medicine 11/18/20 Burn Out Scarfing Operator Relationship Specialty Start Date End Date Cas Dowell MD [address] [place] [address] PCP - General Family Medicine 11/18/20 Burn Out Scarfing Operator Relationship Specialty Start Date End Date Cas Dowell MD [address] [place] [address] PCP - General Family Medicine 11/18/20 Burn Out Scarfing Operator Relationship Specialty Start Date End Date Cas Dowell MD [address] [place] [address] PCP - General [facility] Medicine 11/18/20 Burn Out Scarfing Operator Relationship Specialty Start Date End Date Cas Dowell MD [address] [place] [address] PCP - General Family Medicine 11/18/20 Burn Out Scarfing Operator Relationship Specialty Start Date End Date Cas Dowell MD PCP - General Family Medicine 11/18/20 Burn Out Scarfing Operator Relationship Specialty Start Date End Date Cas Dowell MD PCP - General Family Medicine 11/18/20 Burn Out Scarfing Operator Relationship Specialty Start Date End Date Cas Dowell MD PCP - General Family Medicine 11/18/20 Burn Out Scarfing Operator Relationship Specialty Start Date End Date Cas Dowell MD PCP - General Family Medicine 11/18/20 Burn Out Scarfing Operator Relationship Specialty Start Date End Date Cas Dowell MD PCP - General Family Medicine 11/18/20 Burn Out Scarfing Operator Relationship Specialty Start Date End Date Cas Dowell MD [address] [place] [address] PCP - General Family Medicine 04/09/23 Cas Dowell MD [address] [place] [address] PCP - [facility] 11/06/23 Burn Out Scarfing Operator Relationship Specialty Start Date End Date Cas Dowell MD [address] [place] [address] PCP - General Family Medicine 04/09/23 Cas Dowell MD [address] [place] [address] PCP - [facility] 11/06/23 Burn Out Scarfing Operator Relationship Specialty Start Date End Date Cas Dowell MD PCP - General Family Medicine 11/18/20 Burn Out Scarfing Operator Relationship Specialty Start Date End Date Cas Dowell MD [address] [place] [address] PCP - General Family Medicine 04/09/23 Burn Out Scarfing Operator Relationship Specialty Start Date End Date Cas Dowell MD [address] [place] [address] PCP - General Family Medicine 04/09/23 Burn Out Scarfing Operator Relationship Specialty Start Date End Date Cas Dowell MD [address] [place] [address] PCP - [facility] Medicine 04/09/23 Burn Out Scarfing Operator Relationship Specialty Start Date End Date Cas Dowell MD [address] [place] [address] PCP [facility] Medicine 04/09/23 Burn Out Scarfing Operator Relationship Specialty Start Date End Date Cas Dowell MD [address] [place] [address] PCP - [facility] 04/09/23 Burn Out Scarfing Operator Relationship Specialty Start Date End Date Cas Dowell MD PCP [facility] Medicine 11/18/20 Burn Out Scarfing Operator Relationship Specialty Start Date End Date Cas Dowell MD PCP General 09/04/11 Team Status: Active Member Role Status Dates Cas Dowell MD Primary Care Provider Active Team Status: Inactive Member Role Status Dates Cas Dowell MD Primary Care Provider Active S tart: September 08, 2024 End: September 08, 2024 JULI Botello RN [employer] PRACTITIONER-C Attending Provider Active Start: September 08 End: September 08, 2024 Team Status: Active Member Role Status Dates Cas Dowell MD Primary Care Provider Active S tart: September 08, 2024 JULI Botello RN [employer] WELLNESS PRACTITIONER-C Attending Provider Active Start: September 08 Burn Out Scarfing Operator Relationship Specialty Start Date End Date Cas Dowell MD PCP General Family Medicine 11/18/20 Burn Out Scarfing Operator Relationship Specialty Start Date End Date Cas Dowell MD [address] [place] [address] PCP - General Family Medicine 04/09/23 Burn Out Scarfing Operator Relationship Specialty Start Date End Date Cas Dowell MD [address] [place] [address] PCP - General Family Medicine 04/09/23 Burn Out Scarfing Operator Relationship Specialty Start Date End Date Cas Dowell MD [address] [place] [address] PCP - General Family Medicine 04/09/23 Burn Out Scarfing Operator Relationship Specialty Start Date End Date Cas Dowell MD PCP - General Family Medicine 02/20/14 Sai Perez MD [address] [place] [address] Primary Staff Physician Cardiology 07/21/21 Rubens Tim DO [address] [place] [address] [place] [address] Referring Brim Welt Sewing Machine Operator 08/05/21 Burn Out Scarfing Operator Relationship Specialty Start Date End Date Cas Dowell MD [address] [place] [address] PCP - General Family Medicine 04/09/23 Burn Out Scarfing Operator Relationship Specialty Start Date End Date [...] alcohol or drug abuse patient.[facility] HospitalIn the event this information is protected by the Federal Confidentiality of Alcohol and Drug Abuse Patient Records regulations: The Federal rules restrict any use of the information to criminally investigate or prosecute any alcohol or drug abuse patient.[facility] HospitalIn the event this information is protected by the Federal Confidentiality of Alcohol and Drug Abuse Patient Records regulations: The Federal rules restrict any use of the information to criminally investigate or prosecute any alcohol or drug abuse patient.[facility] HospitalIn the event this information is protected by the Federal Confidentiality of Alcohol and Drug Abuse Patient Records regulations: The Federal rules restrict any use of the information to criminally investigate or prosecute any alcohol or drug abuse patient.[facility] HospitalIn the event this information is protected by the Federal Confidentiality of Alcohol and Drug Abuse Patient Records regulations: The Federal rules restrict any use of the information to criminally investigate or prosecute any alcohol or drug abuse patient.[facility] HospitalIn the event this information is protected by the Federal Confidentiality of Alcohol and Drug Abuse Patient Records regulations: The Federal rules restrict any use of the information to criminally investigate or prosecute any alcohol or drug abuse patient.[facility] HospitalIn the event this information is protected by the Federal Confidentiality of Alcohol and Drug Abuse Patient Records regulations: The Federal rules restrict any use of the information to criminally investigate or prosecute any alcohol or drug abuse patient.[facility] HospitalIn the event this information is protected by the Federal Confidentiality of Alcohol and Drug Abuse Patient Records regulations: The Federal rules restrict any use of the information to criminally investigate or prosecute any alcohol or drug abuse patient.[facility] HospitalIn the event this information is protected by the Federal Confidentiality of Alcohol and Drug Abuse Patient Records regulations: The Federal rules restrict any use of the information to criminally investigate or prosecute any alcohol or drug abuse patient.[facility] HospitalIn the event this information is protected by the Federal Confidentiality of Alcohol and Drug Abuse Patient Records regulations: The Federal rules restrict any use of the information to criminally investigate or prosecute any alcohol or drug abuse patient.[facility] HospitalIn the event this information is protected by the Federal Confidentiality of Alcohol and Drug Abuse Patient Records regulations: The Federal rules restrict any use of the information to criminally investigate or prosecute any alcohol or drug abuse patient.[facility] HospitalIn the event this information is protected by the Federal Confidentiality of Alcohol and Drug Abuse Patient Records regulations: The Federal rules restrict any use of the information to criminally investigate or prosecute any alcohol or drug abuse patient.[facility] HospitalIn the event this information is protected by the Federal Confidentiality of Alcohol and Drug Abuse Patient Records regulations: The Federal rules restrict any use of the information to criminally investigate or prosecute any alcohol or drug abuse patient.[facility] HospitalIn the event this information is protected by the Federal Confidentiality of Alcohol and Drug Abuse Patient Records regulations: The Federal rules restrict any use of the information to criminally investigate or prosecute any alcohol or drug abuse patient.[facility] HospitalIn the event this information is protected by the Federal Confidentiality of Alcohol and Drug Abuse Patient Records regulations: The Federal rules restrict any use of the information to criminally investigate or prosecute any alcohol or drug abuse patient.[facility] HospitalIn the event this information is protected by the Federal Confidentiality of Alcohol and Drug Abuse Patient Records regulations: The Federal rules restrict any use of the information to criminally investigate or prosecute any alcohol or drug abuse patient.[facility] HospitalIn the event this information is protected by the Federal Confidentiality of Alcohol and Drug Abuse Patient Records regulations: The Federal rules restrict any use of the information to criminally investigate or prosecute any alcohol or drug abuse patient.[facility] HospitalIn the event this information is protected by the Federal Confidentiality of Alcohol and Drug Abuse Patient Records regulations: The Federal rules restrict any use of the information to criminally investigate or prosecute any alcohol or drug abuse patient.[facility] HospitalIn the event this information is protected by the Federal Confidentiality of Alcohol and Drug Abuse Patient Records regulations: The Federal rules restrict any use of the information to criminally investigate or prosecute any alcohol or drug abuse patient.[facility] HospitalIn the event this information is protected by the Federal Confidentiality of Alcohol and Drug Abuse Patient Records regulations: The Federal rules restrict any use of the information to criminally investigate or prosecute any alcohol or drug abuse patient.[facility] HospitalIn the event this information is protected by the Federal Confidentiality of Alcohol and Drug Abuse Patient Records regulations: The Federal rules restrict any use of the information to criminally investigate or prosecute any alcohol or drug abuse patient.[facility] HospitalIn the event this information is protected by the Federal Confidentiality of Alcohol and Drug Abuse Patient Records regulations: The Federal rules restrict any use of the information to criminally investigate or prosecute any alcohol or drug abuse patient.[facility] HospitalIn the event this information is protected by the Federal Confidentiality of Alcohol and Drug Abuse Patient Records regulations: The Federal rules restrict any use of the information to criminally investigate or prosecute any alcohol or drug abuse patient.[facility] HospitalIn the event this information is protected by the Federal Confidentiality of Alcohol and Drug Abuse Patient Records regulations: The Federal rules restrict any use of the information to criminally investigate or prosecute any alcohol or drug abuse patient.[facility] HospitalIn the event this information is protected by the Federal Confidentiality of Alcohol and Drug Abuse Patient Records regulations: The Federal rules restrict any use of the information to criminally investigate or prosecute any alcohol or drug abuse patient.[facility] HospitalIn the event this information is protected by the Federal Confidentiality of Alcohol and Drug Abuse Patient Records regulations: The Federal rules restrict any use of the information to criminally investigate or prosecute any alcohol or drug abuse patient.[facility] HospitalIn the event this information is protected [...] alcohol or drug abuse patient.[facility] HospitalIn the event this information is protected by the Federal Confidentiality of Alcohol and Drug Abuse Patient Records regulations: The Federal rules restrict any use of the information to criminally investigate or prosecute any alcohol or drug abuse patient.[facility] HospitalIn the event this information is protected by the Federal Confidentiality of Alcohol and Drug Abuse Patient Records regulations: The Federal rules restrict any use of the information to criminally investigate or prosecute any alcohol or drug abuse patient.[facility] HospitalIn the event this information is protected by the Federal Confidentiality of Alcohol and Drug Abuse Patient Records regulations: The Federal rules restrict any use of the information to criminally investigate or prosecute any alcohol or drug abuse patient.[facility] HospitalIn the event this information is protected by the Federal Confidentiality of Alcohol and Drug Abuse Patient Records regulations: The Federal rules restrict any use of the information to criminally investigate or prosecute any alcohol or drug abuse patient.[facility] HospitalIn the event this information is protected by the Federal Confidentiality of Alcohol and Drug Abuse Patient Records regulations: The Federal rules restrict any use of the information to criminally investigate or prosecute any alcohol or drug abuse patient.[facility] HospitalIn the event this information is protected by the Federal Confidentiality of Alcohol and Drug Abuse Patient Records regulations: The Federal rules restrict any use of the information to criminally investigate or prosecute any alcohol or drug abuse patient.[facility] HospitalIn the event this information is protected by the Federal Confidentiality of Alcohol and Drug Abuse Patient Records regulations: The Federal rules restrict any use of the information to criminally investigate or prosecute any alcohol or drug abuse patient.[facility] HospitalIn the event this information is protected by the Federal Confidentiality of Alcohol and Drug Abuse Patient Records regulations: The Federal rules restrict any use of the information to criminally investigate or prosecute any alcohol or drug abuse patient.[facility] HospitalIn the event this information is protected by the Federal Confidentiality of Alcohol and Drug Abuse Patient Records regulations: The Federal rules restrict any use of the information to criminally investigate or prosecute any alcohol or drug abuse patient.[facility] HospitalIn the event this information is protected by the Federal Confidentiality of Alcohol and Drug Abuse Patient Records regulations: The Federal rules restrict any use of the information to criminally investigate or prosecute any alcohol or drug abuse patient.[facility] HospitalIn the event this information is protected by the Federal Confidentiality of Alcohol and Drug Abuse Patient Records regulations: The Federal rules restrict any use of the information to criminally investigate or prosecute any alcohol or drug abuse patient.[facility] HospitalIn the event this information is protected by the Federal Confidentiality of Alcohol and Drug Abuse Patient Records regulations: The Federal rules restrict any use of the information to criminally investigate or prosecute any alcohol or drug abuse patient.[facility] HospitalIn the event this information is protected by the Federal Confidentiality of Alcohol and Drug Abuse Patient Records regulations: The Federal rules restrict any use of the information to criminally investigate or prosecute any alcohol or drug abuse patient.[facility] HospitalIn the event this information is protected by the Federal Confidentiality of Alcohol and Drug Abuse Patient Records regulations: The Federal rules restrict any use of the information to criminally investigate or prosecute any alcohol or drug abuse patient.[facility] HospitalIn the event this information is protected by the Federal Confidentiality of Alcohol and Drug Abuse Patient Records regulations: The Federal rules restrict any use of the information to criminally investigate or prosecute any alcohol or drug abuse patient.[facility] HospitalIn the event this information is protected by the Federal Confidentiality of Alcohol and Drug Abuse Patient Records regulations: The Federal rules restrict any use of the information to criminally investigate or prosecute any alcohol or drug abuse patient.[facility] HospitalIn the event this information is protected by the Federal Confidentiality of Alcohol and Drug Abuse Patient Records regulations: The Federal rules restrict any use of the information to criminally investigate or prosecute any alcohol or drug abuse patient.[facility] HospitalIn the event this information is protected by the Federal Confidentiality of Alcohol and Drug Abuse Patient Records regulations: The Federal rules restrict any use of the information to criminally investigate or prosecute any alcohol or drug abuse patient.[facility] HospitalIn the event this information is protected by the Federal Confidentiality of Alcohol and Drug Abuse Patient Records regulations: The Federal rules restrict any use of the information to criminally investigate or prosecute any alcohol or drug abuse patient.[facility] HospitalIn the event this information is protected by the Federal Confidentiality of Alcohol and Drug Abuse Patient Records regulations: The Federal rules restrict any use of the information to criminally investigate or prosecute any alcohol or drug abuse patient.[facility] HospitalIn the event this information is protected by the Federal Confidentiality of Alcohol and Drug Abuse Patient Records regulations: The Federal rules restrict any use of the information to criminally investigate or prosecute any alcohol or drug abuse patient.[facility] HospitalIn the event this information is protected by the Federal Confidentiality of Alcohol and Drug Abuse Patient Records regulations: The Federal rules restrict any use of the information to criminally investigate or prosecute any alcohol or drug abuse patient.[facility] HospitalIn the event this information is protected by the Federal Confidentiality of Alcohol and Drug Abuse Patient Records regulations: The Federal rules restrict any use of the information to criminally investigate or prosecute any alcohol or drug abuse patient.[facility] HospitalIn the event this information is protected by the Federal Confidentiality of Alcohol and Drug Abuse Patient Records regulations: The Federal rules restrict any use of the information to criminally investigate or prosecute any alcohol or drug abuse patient.[facility] HospitalIn the event this information is protected by the Federal Confidentiality of Alcohol and Drug Abuse Patient Records regulations: The Federal rules restrict any use of the information to criminally investigate or prosecute any alcohol or drug abuse patient.[facility] HospitalIn the event this information is protected by the Federal Confidentiality of Alcohol and Drug Abuse Patient Records regulations: The Federal rules restrict any use of the information to criminally investigate or prosecute any alcohol or drug abuse patient.[facility] HospitalIn the event this information is protected by the Federal Confidentiality of Alcohol and Drug Abuse Patient Records regulations: The Federal rules restrict any use of the information to criminally investigate or prosecute any alcohol or drug abuse patient.[facility] HospitalIn the event this information is protected by the Federal Confidentiality of Alcohol and Drug Abuse Patient Records regulations: The Federal rules restrict any use of the information to criminally investigate or prosecute any alcohol or drug abuse patient.[facility] HospitalIn the event this information is protected by the Federal Confidentiality of Alcohol and Drug Abuse Patient Records regulations: The Federal rules restrict any use of the information to criminally investigate or prosecute any alcohol or drug abuse patient.[facility] HospitalIn the event this information is protected by the Federal Confidentiality of Alcohol and Drug Abuse Patient Records regulations: The Federal rules restrict any use of the information to criminally investigate or prosecute any alcohol or drug abuse patient.[facility] HospitalIn the event this information is protected by the Federal Confidentiality of Alcohol and Drug Abuse Patient Records regulations: The Federal rules restrict any use of the information to criminally investigate or prosecute any alcohol or drug abuse patient.[facility] HospitalIn the event this information is protected by the Federal Confidentiality of Alcohol and Drug Abuse Patient Records regulations: The Federal rules restrict any use of the information to criminally investigate or prosecute any alcohol or drug abuse patient.[facility] HospitalIn the event this information is protected by the Federal Confidentiality of Alcohol and Drug Abuse Patient Records regulations: The Federal rules restrict any use of the information to criminally investigate or prosecute any alcohol or drug abuse patient.[facility] HospitalIn the event this information is protected by the Federal Confidentiality of Alcohol and Drug Abuse Patient Records regulations: The Federal rules restrict any use of the information to criminally investigate or prosecute any alcohol or drug abuse patient.[facility] HospitalIn the event this information is protected by the Federal Confidentiality of Alcohol and Drug Abuse Patient Records regulations: The Federal rules restrict any use of the information to criminally investigate or prosecute any alcohol or drug abuse patient.[facility] HospitalIn the event this information is protected by the Federal Confidentiality of Alcohol and Drug Abuse Patient Records regulations: The Federal rules restrict any use of the information to criminally investigate or prosecute any alcohol or drug abuse patient.[facility] HospitalIn the event this information is protected by the Federal Confidentiality of Alcohol and Drug Abuse Patient Records regulations: The Federal rules restrict any use of the information to criminally investigate or prosecute any alcohol or drug abuse patient.[facility] HospitalIn the event this information is protected by the Federal Confidentiality of Alcohol and Drug Abuse Patient Records regulations: The Federal rules restrict any use of the information to criminally investigate or prosecute any alcohol or drug abuse patient.[facility] HospitalIn the event this information is protected by the Federal Confidentiality of Alcohol and Drug Abuse Patient Records regulations: The Federal rules restrict any use of the information to criminally investigate or prosecute any alcohol or drug abuse patient.[facility] HospitalIn the event this information is protected by the Federal Confidentiality of Alcohol and Drug Abuse Patient Records regulations: The Federal rules restrict any use of the information to criminally investigate or prosecute any alcohol or drug abuse patient.[facility] HospitalIn the event this information is protected by the Federal Confidentiality of Alcohol and Drug Abuse Patient Records regulations: The Federal rules restrict any use of the information to criminally investigate or prosecute any alcohol or drug abuse patient.[facility] HospitalIn the event this information is protected by the Federal Confidentiality of Alcohol and Drug Abuse Patient Records regulations: The Federal rules restrict any use of the information to criminally investigate or prosecute any alcohol or drug abuse patient.[facility] HospitalIn the event this information is protected by the Federal Confidentiality of Alcohol and Drug Abuse Patient Records regulations: The Federal rules restrict any use of the information to criminally investigate or prosecute any alcohol or drug abuse patient.[facility] HospitalIn the event this information is protected by the Federal Confidentiality of Alcohol and Drug Abuse Patient Records regulations: The Federal rules restrict any use of the information to criminally investigate or prosecute any alcohol or drug abuse patient.[facility] HospitalIn the event this information is protected by the Federal Confidentiality of Alcohol and Drug Abuse Patient Records regulations: The Federal rules restrict any use of the information to criminally investigate or prosecute any alcohol or drug abuse patient.[facility] HospitalIn the event this information is protected by the Federal Confidentiality of Alcohol and Drug Abuse Patient Records regulations: The Federal rules restrict any use of the information to criminally investigate or prosecute any alcohol or drug abuse patient.[facility] HospitalIn the event this information is protected by the Federal Confidentiality of Alcohol and Drug Abuse Patient Records regulations: The Federal rules restrict any use of the information to criminally investigate or prosecute any alcohol or drug abuse patient.[facility] HospitalIn the event this information is protected by the Federal Confidentiality of Alcohol and Drug Abuse Patient Records regulations: The Federal rules restrict any use of the information to criminally investigate or prosecute any alcohol or drug abuse patient.[facility] HospitalIn the event this information is protected [...] alcohol or drug abuse patient.[facility] HospitalIn the event this information is protected by the Federal Confidentiality of Alcohol and Drug Abuse Patient Records regulations: The Federal rules restrict any use of the information to criminally investigate or prosecute any alcohol or drug abuse patient.[facility] HospitalIn the event this information is protected by the Federal Confidentiality of Alcohol and Drug Abuse Patient Records regulations: The Federal rules restrict any use of the information to criminally investigate or prosecute any alcohol or drug abuse patient.[facility] HospitalIn the event this information is protected by the Federal Confidentiality of Alcohol and Drug Abuse Patient Records regulations: The Federal rules restrict any use of the information to criminally investigate or prosecute any alcohol or drug abuse patient.[facility] HospitalIn the event this information is protected by the Federal Confidentiality of Alcohol and Drug Abuse Patient Records regulations: The Federal rules restrict any use of the information to criminally investigate or prosecute any alcohol or drug abuse patient.[facility] HospitalIn the event this information is protected by the Federal Confidentiality of Alcohol and Drug Abuse Patient Records regulations: The Federal rules restrict any use of the information to criminally investigate or prosecute any alcohol or drug abuse patient.[facility] HospitalIn the event this information is protected by the Federal Confidentiality of Alcohol and Drug Abuse Patient Records regulations: The Federal rules restrict any use of the information to criminally investigate or prosecute any alcohol or drug abuse patient.[facility] HospitalIn the event this information is protected by the Federal Confidentiality of Alcohol and Drug Abuse Patient Records regulations: The Federal rules restrict any use of the information to criminally investigate or prosecute any alcohol or drug abuse patient.[facility] HospitalIn the event this information is protected by the Federal Confidentiality of Alcohol and Drug Abuse Patient Records regulations: The Federal rules restrict any use of the information to criminally investigate or prosecute any alcohol or drug abuse patient.[facility] HospitalIn the event this information is protected by the Federal Confidentiality of Alcohol and Drug Abuse Patient Records regulations: The Federal rules restrict any use of the information to criminally investigate or prosecute any alcohol or drug abuse patient.[facility] Goals (unrecognized section and content) Goals [...] BE BASED ON THE PRIMARY CLINICAL RECORDS. [facility] provides no warranty or guarantee of the accuracy or completeness of information in this document.
== END 2024-10-31 14:29 | disposition home or self-care (01) ==
LOC: CT 14:30
PROVIDERS: PCP Family Medicine
DX: J32.9 Chronic sinusitis, unspecified (principal)
CPT/HCPCS: 70486

== ENCOUNTER 2024-11-23 10:37 | Emergency (ER) | payer BC, SELFPAY ==
[2024-11-23 10:48] VITALS: BP 144/86; PULSE 67; TEMP 36.8; O2SAT 97; BMI 39.5
--- OUTSIDE RECORDS SUMMARY | 2024-11-23 11:01 | XMS_ITS | Encounter Summary ---
Author Organization [facility] Address [address] [place] [address] Care Team Providers Care Wine Cellar Stock Clerk Name Role Phone Cas Galicia MD Primary Care Provider [phone] Cas Galicia MD Unavailable Cas Galicia MD [...] oz pur e alcohol) Social Connection and Isolation Panel Answer Date Recorded In a typical week, how many times do you talk on the phone with family, friends, or neighbors? More than three times a week 04/08/2023 How often do you get togethe r with friends or relatives? Once a week 04/08/2023 How often do you attend chur or congregational services? Patient declined 04/08/2023 Do you belong [...] care, and heating? Somewhat hard 04/08/2023 [facility] Questionnaire Answer [...] in a [place] facility (including now)? Patient declined 04/08/2023 Comments Unknown [...] EDT Office Visit [facility] [address] [place] [id number] Rodolfo Tim DO [address] [facility] [place] [address] 07/08/2025 8:20 AM EDT Office Visit [facility] [address] [place] [address] Jodi Holden, [place] [address] [place], [place] [id number] documented as of this encounter Procedures Procedure Name Priority Date/Time Associated Diagnosis Comments US PELVIS W/ TRANSVAGINAL 08/30/2023 10:22 AM EDT documented in this encounter Results * US PELVIS W/ TRANSVAGINAL (08/30/2023 10:22 AM EDT) Anatomical Region Laterality Modality Other 08/30/2023 10:2 2 AM EDT Narrative 08/30/2023 10:25 AM EDT The [address] [address] Ultrasound Report Signed Patient: VIJAYA TRAN MR#: [id number] : 1985 Acct:[id number] Age/Sex: 37 / F ADM Date: 08/30/23 Loc: US Attending Dr: Rodolfo Tim D.O. Ordering Physician: Rodolfo Tim D.O. Date of Service: 08/30/23 Procedure(s): US pelvis w/ transvaginal Accession Number(s): [id number] cc: Rodolfo Tim D.O.; Cas Galicia M.D. The [address] [address] Patient Name: VIJAYA TRAN MRN: [id number] date: 1985 Sex: F Assigned Patient Location: US Current Patient Location: US Accession/Order Number: [id number] Exam Date: 08/30/2023 08:55 Report Date: 08/30/2023 [...] Signed By: 08/30/23 1025 DD/ 1022 TD/TT: Director Of Cardiology: Procedure Note Radiology, Radiologist, MD - 08/30/2023 [place] [address] Ultrasound Report Signed Patient: VIJAYA TRAN SMR#: [id number] : 1985Acct:[id number] Age/Sex: 37 / FADM Date: 08/30/23 Loc: US Attending Dr: Rodolfo Tim D.O. Ordering Physician: Rodolfo Tim D.O. Date of Service: 08/30/23 Procedure(s): US pelvis w/ transvaginal Accession Number(s): [id number] cc: Rodolfo Tim D.O.; Cas Galicia M.D. The [address] [address] Patient Name: VIJAYA TRAN MRN: [id number] date: 1985 Sex: F Assigned Patient Location: US Current Patient Location: US Accession/Order Number: [id number] Exam Date: 08/30/2023 08:55 Report Date: 08/30/2023 10:22 At the request of: RODOLFO GEORGE Procedure: US pelvis w/ transvaginal EXAMINATION: US [...] M.D. Signed By:08/30/23 1025 DD/ 1022 TD/TT: Director Of Cardiology: us Generic External Data Provider [facility] Final Result documented in this encounter Visit Diagnoses Not on filedocumented in this encounter Care Teams Wine Cellar Stock Clerk Relationship Specialty Start Date End Date Cas Galicia MD PCP - General Family Medicine 04/09/23 Cas Galicia MD [address] [place] [address] PCP - [place] [employer] 06/06/23 Cas Galicia MD [address] [place] [address] PCP - [place] [employer] 11/06/23 documented as of this encounter
--- OUTSIDE RECORDS SUMMARY | 2024-11-23 11:01 | XMS_ITS | Encounter Summary ---
Author Organization [facility] Address [address] [place] [address] Care Team Providers Care Billboard Erector Helper Name Role Phone Cas Galicia MD Primary Care Provider [phone] Cas Galicia MD Unavailable Cas Galicia MD [...] How often do you attend chur or protestant services? Patient declined 04/08/2023 Do you belong to any clubs o r organizations such as latter day groups, unions, fraternal or athletic groups, or [...] medical care, and heating? Somewhat hard 04/08/2023 [facility] - Occupational Stress Questionnaire Answer [...] EDT Office Visit [facility] [address] [place] [address] Rubens Tim DO [address] [place] [address] 07/08/2025 8:20 AM EDT [facility] [address] [place] [address] Jodi Holden, [place] [address] [place], [place] [id number] documented as of this encounter Procedures Procedure Name Priority Date/Time Associated Diagnosis Comments MM TOMOSYNTHESIS DIAGNOSTIC BI 08/31/2023 1:39 PM EDT documented in this encounter Results * MM TOMOSYNTHESIS DIAGNOSTIC BI (08/31/2023 1:39 PM EDT) Anatomical Region Laterality Modality Other 08/31/2023 1:39 PM EDT Narrative 08/31/2023 1:40 PM EDT The [address] [address] Mammography Report Signed Patient: VIJAYA TRAN MR#: [id number] : 1985 Acct:[id number] Age/Sex: 37 / F ADM Date: 08/31/23 Loc: MAMMO Attending Dr: Rubens Tim D.O. Ordering Physician: Rubens Tim D.O. Results: Date of Service: 08/31/23 Follow Up: Procedure(s): MM tomosynthesis diagnostic BI Accession Number(s): [id number] cc: Rubens Tim D.O.; Cas Galicia M.D. Patient Name: VIJAYA TRAN MR#: [id number] : 1985 Exam Date: 08/31/2023 Ordering Doctor: [...] cervical cancer at age 48. LOCATION: The [facility] BREAST COMPOSITION: There are scattered [...] Signed By: 08/31/23 1340 DD/ 1339 TD/TT: Optical Glass Inspector: Procedure Note Radiology, Radiologist, - 08/31/2023 [place] [address] Mammography Report Signed Patient: VIJAYA TRAN [facility]#: [id number] : 1985Acct:[id number] Age/Sex: 37 / FADM Date: 08/31/23 Loc: MAMMO Attending Dr: Rubens Tim D.O. Ordering Physician: Rubens Tim D.O.Results: Date of Service: 08/31/23Follow Up: Procedure(s): MM tomosynthesis diagnostic BI Accession Number(s): [id number] cc: Rubens Tim D.O.; Cas Galicia M.D. Patient Name: VIJAYA TRAN MR#: [id number] : 1985 Exam Date: 08/31/2023 Ordering Doctor: [...] cervical cancer at age 48. LOCATION: The [facility] BREAST COMPOSITION: There are scattered [...] Dictated By: Jonas Humphrey M.D. Signed By:08/31/23 1349 DD/ 0477 TD/TT: Optical Glass Inspector: us Generic External Data Provider [facility] Final Result documented in this encounter Visit Diagnoses Not on filedocumented in this encounter Care Teams Billboard Erector Helper Relationship Specialty Start Date End Date Cas Galicia MD PCP - General Family Medicine 04/09/23 Cas Galicia MD [address] [place] [phone] PCP - [place] [employer] 06/06/23 Cas Galicia MD [address] [place] [address] PCP - [place] [employer] 11/06/23 documented as of this encounter
--- OUTSIDE RECORDS SUMMARY | 2024-11-23 11:01 | XMS_ITS | Encounter Summary ---
Author Organization [facility] Address [address] [place] [address] Care Team Providers Care Dairy Hand Name Role Phone Cas Galicia MD Primary Care Provider [phone] Cas Galicia MD Unavailable Encounter Details Date Type Department Care Team (Late st Contact Info) Description 12/05/2023 Abstract [facility] [address] [place] [address] Rubens Tim DO [address] [employer] [place] [address] Social History Tobacco Use Types Packs/Day Years [...] often do you attend chur ch or taoist services? Patient declined 04/08/2023 Do you belong [...] medical care, and heating? Somewhat hard 04/08/2023 [facility] - [...] OBGYN [address] [address] Rubens Tim DO [address] [facility] [place] [address] 07/08/2025 8:20 AM EDT Office Visit [facility] [address] [place] [address] Jodi Holden, [place] [address] [place], [place] [id number] documented as of this encounter Visit Diagnoses Not on filedocumented in this encounter Care Teams Dairy Hand Relationship Specialty Start Date End Date Cas Galicia MD PCP - General Family Medicine 04/09/23 Cas Galicia MD [address] [place] [address] PCP - [employer] [employer] 11/06/23 documented as of this encounter
--- OUTSIDE RECORDS SUMMARY | 2024-11-23 11:01 | XMS_ITS | Encounter Summary ---
Author Organization [facility] Address [address] [place] [address] Care Team Providers Care Bank Appraiser Name Role Phone Csa Galicia MD Primary Care Provider [phone] Cas Galicia MD Unavailable Cas Galicia MD [...] How often do you attend chur or yazidi services? Patient declined 04/08/2023 Do you belong to any clubs o r organizations such as mandaeism groups, unions, fraternal or athletic groups, or [...] medical care, and heating? Somewhat hard 04/08/2023 [facility] - Occupational Stress Questionnaire Answer [...] a retirement (including now)? Patient declined 04/08/2023 Comments Unknown [...] EDT Office Visit [facility] [address] [place] [phone] Rubens Tim, DO [address] [facility] [place] [address] 07/08/2025 8:20 AM EDT Office Visit [facility] [address] [place] [address] Jodi Holden, PA [address] [place] [address] [place] [address] documented as of this encounter Procedures Procedure Name Priority Date/Time Associated Diagnosis Comments US THYROID 05/10/2023 12:35 PM EDT documented in this encounter Results * US thyroid (05/10/2023 12:35 PM EDT) Anatomical Region Laterality Modality Head, Neck Ultrasound 05/10/2023 12:3 5 PM EDT Narrative 05/10/2023 12:37 PM EDT The [address] [address] Ultrasound Report Signed Patient: VIJAYA TRAN MR#: [id number] : 1985 Acct:[id number] Age/Sex: 37 / F ADM Date: 05/10/23 Loc: RAD Attending Dr: Reji Best NP Ordering Physician: Reji Best NP Date of Service: 05/10/23 Procedure(s): US thyroid Accession Number(s): [id number] cc: Cas Galicia M.D.; Reji Best NP [address] [address] Patient Name: VIJAYA TRAN MRN: [facility]:[id number] date: 1985 Sex: F Assigned Patient Location: RAD Current Patient Location: RAD Accession/Order Number: [id number] Exam Date: 05/10/2023 09:04 Report Date: 05/10/2023 [...] Signed By: 05/10/23 1237 DD/ 1235 TD/TT: Traffic Maintenance Officer: Procedure Note Radiology, Radiologist, MD - 05/10/2023 The [place] [id number] Ultrasound Report Signed Patient: VIJAYA TRAN SMR#: [id number] : 1985Acct:[id number] Age/Sex: 37 / FADM Date: 05/10/23 Loc: RAD Attending Dr: Reji Best NP Ordering Physician: Reji Best NP Date of Service: 05/10/23 Procedure(s): US thyroid Accession Number(s): [id number] cc: Cas Galicia M.D.; Reji Best NP The [address] [address] Patient Name: VIJAYA TRAN MRN: [facility]:[id number] date: 1985 Sex: F Assigned Patient Location: RAD Current Patient Location: RAD Accession/Order Number: [id number] Exam Date: 05/10/2023 09:04 Report Date: 05/10/2023 [...] M.D. Signed By:05/10/23 1237 DD/ 1235 TD/TT: Traffic Maintenance Officer: us Generic External Data Provider IMG US PROCEDURES Final Result documented in this encounter Visit Diagnoses Not on filedocumented in this encounter Care Teams Bank Appraiser Relationship Specialty Start Date End Date Cas Galicia MD PCP - General Family Medicine 04/09/23 Cas Galicia MD [address] [place] [phone] PCP - [employer] 06/06/23 Cas Galicia MD [address] [place] [phone] PCP - [employer] 11/06/23 documented as of this encounter
--- OUTSIDE RECORDS SUMMARY | 2024-11-23 11:01 | XMS_ITS | Encounter Summary ---
Author Organization [facility] Address [facility]-[id number] [address] [place] [address] Care Team Providers Care Coal Pulverizer Operator Name Role Phone Cas Galicia MD Primary Care Provider [phone] Reason for Referral * Diagnostic Imaging (Routine) - Closed Specialty Diagnoses / Procedures Referred By Contac t Referred To Contact Radiology Diagnoses Pain Procedures CT neck soft tissue without contrast [facility] [address] [place] [phone] Phone: tel: fax: Referral ID Status Reason Start Date Expiration Date Visits Re quested Visits Authorized [id number] Closed 05/22/2022 05/22/2023 1 1 Encounter Details Date Type Department Care Team (Late Contact Info) Description 05/22/2022 Orders Only [facility] [address] [place] [place] [phone] Transcribe, Orders Support User Pain (Primary [...] Description 11/24/2024 10:00 AM EDT Office Visit [facility] Adult Endocrinology, A Department of [facility] [address] [address] Akila Ballard MD [address] [address] 12/26/2024 10:30 AM EST Office Visit [facility] Neurology, A Department of [facility] [address] [address] Stella Flowers, ASSISTANT OPERATIONS MANAGER-WEATHERIZATION FIELD TECHNICIAN [address] [phone] 01/05/2025 12:30 PM EST Clinical Support [facility] - ENT [address] [place] [address], [address] [place] [phone] Argentina Trivedi, [facility], [place]-CABLE TESTER [address] [place] [phone] 01/27/2025 4:15 PM EST Office Visit [facility] ENT [address] [place] [address], [address] [place] [address] Terri Smith MD [address] [facility] [address] [place] [address] documented as of this encounter Results * [...] documented as of this encounter Care Teams Coal Pulverizer Operator Relationship Specialty Start Date End Date Cas Galicia MD PCP - General Family Medicine 11/18/20 documented as of this encounter
--- OUTSIDE RECORDS SUMMARY | 2024-11-23 11:01 | XMS_ITS | Encounter Summary ---
Author Organization [facility] tem Address [facility]-[id number] [address] [place] [address] Care Team Providers Care Pecan Grower Name Role Phone Cas Galicia MD Primary Care Provider [phone] Encounter Details Date Type Department Care Team (Late Contact Info) Description 06/07/2022 Orders Only [facility] [address] [phone] Ref Prov, [place] [address] Social History Tobacco Use Types Packs/Day Years [...] [facility], A Department of [facility] [address] [facility] [address] [place] [phone] Akila Ballard MD [address] [facility] [address] [place] [address] 12/26/2024 10:30 AM EST Office Visit [facility] Neurology, A Department of [facility] [address] [facility] 104 [place] [address] Stella Flowers, DIALS INSPECTOR-MOLDING LINE ASSISTANT [address] [facility] 104 [place] [phone] 01/05/2025 12:30 PM EST Clinical Support [facility] - [address], [address] [place] [phone] Argentina Trivedi, [facility]-CONSUMER INSIGHTS INTERN [address] [place] [address] [address] [place] [address] 01/27/2025 4:15 PM EST Office Visit [facility] - [address], [address] [place] [address] Terri Smith MD [facility] [address] [address] documented as of this encounter Visit Diagnoses Not on filedocumented in this encounter Additional Health Concerns Assessment Noted Time PHQ-9 Depression Total Score: 0 10/06/19 22 10:43 AM EDT documented as of this encounter Care Teams Pecan Grower Relationship Specialty Start Date End Date Cas Galicia MD PCP - General Family Medicine 11/18/20 documented as of this encounter
--- OUTSIDE RECORDS SUMMARY | 2024-11-23 11:01 | XMS_ITS | Encounter Summary ---
Author Organization [facility] tem Address [facility]-[id number] [address] [place] [address] Care Team Providers Care Promotion Producer Name Role Phone Cas Galicia MD Primary Care Provider [phone] Encounter Details Date Type Department Care Team (Late Contact Info) Description 04/11/2022 Orders Only [facility] [address] [place] [phone] External, Scanning Provider Social History Tobacco Use [...] [facility], A Department of [facility] [address] [phone] Akila Ballard MD [address] [address] 12/26/2024 10:30 AM EST Office Visit [facility] Neurology, A Department of [facility] [address] [phone] Stella Flowers, MRI MANAGER-CONTRACTING OFFICER [address] [phone] 01/05/2025 12:30 PM EST Clinical Support [facility] - ENT [address] [place] [address], [address] [place] [phone] Argentina Trivedi CCC-POST OFFICE MARKUP CLERK [address] [place] [address] [address] [place] [phone] 01/27/2025 4:15 PM EST Office Visit [facility] - ENT [address] [place] [address], [address] [place] [phone] Terri Smith MD [address] [place] [address] [place] [address] documented as of this encounter Procedures Procedure [...] documented as of this encounter Care Teams Promotion Producer Relationship Specialty Start Date End Date Cas Galicia MD PCP - General Family Medicine 11/18/20 documented as of this encounter
--- OUTSIDE RECORDS SUMMARY | 2024-11-23 11:01 | XMS_ITS | Encounter Summary ---
Author Organization [facility] Address [address] [place] [address] Care Team Providers Care Sql Data Analyst Name Role Phone Cas Galicia MD Primary Care Provider [phone] Cas Galicia MD Unavailable Cas Galicia MD [...] How often do you attend chur or yarsani services? Patient declined 04/08/2023 Do you belong to any clubs o r organizations such as sabianism groups, unions, fraternal or athletic groups, or [...] medical care, and heating? Somewhat hard 04/08/2023 [facility] - Occupational Stress Questionnaire Answer Date [...] EDT Office Visit [facility] [address] [place] [address] Rubens Tim DO [address] [place] [address] 07/08/2025 8:20 AM EDT Office Visit [facility] [address] [place] [address] Jodi Holden, PA [address] [place] [address] documented as of this encounter Procedures Procedure Name Priority Date/Time Associated Diagnosis Comments US BREAST BI LIMITED 08/31/2023 1:39 PM EDT documented in this encounter Results * US BREAST BI LIMITED (08/31/2023 1:39 PM EDT) Anatomical Region Laterality Modality Other 08/31/2023 1:39 PM EDT Narrative 08/31/2023 1:40 PM EDT The [address] [address] Ultrasound Report Signed Patient: VIJAYA TRAN MR#: [id number] : 1985 Acct:[id number] Age/Sex: 37 / F ADM Date: 08/31/23 Loc: MAMMO Attending Dr: Rubens Tim D.O. Ordering Physician: Rubens Tim D.O. Date of Service: 08/31/23 Procedure(s): US breast BI limited Accession Number(s): [id number] cc: Rubens Tim D.O.; Cas Galicia M.D. Patient Name: VIJAYA TRAN MR#: [id number] : 1985 Exam Date: 08/31/2023 Ordering Doctor: [...] cancer at age 48. LOCATION: The [facility] BREAST COMPOSITION: There are scattered areas [...] Signed By: 08/31/23 1340 DD/ 1339 TD/TT: Berry Grower: Procedure Note Radiology, Radiologist, MD - 08/31/2023 [place] [address] Ultrasound Report Signed Patient: VIJAYA TRAN [facility]#: [id number] : 1985Acct:[id number] Age/Sex: 37 / FADM Date: 08/31/23 Loc: MAMMO Attending Dr: Rubens Tim D.O. Ordering Physician: Rubens Tim D.O. Date of Service: 08/31/23 Procedure(s): US breast BI limited Accession Number(s): [id number] cc: Rubens Tim D.O.; Cas Galicia M.D. Patient Name: VIJAYA TRAN MR#: [id number] : 1985 Exam Date: 08/31/2023 Ordering Doctor: [...] cancer at age 48. LOCATION: The [facility] BREAST COMPOSITION: There are scattered areas [...] M.D. Signed By:08/31/23 1340 DD/ 1339 TD/TT: Berry Grower: us Generic External Data Provider [facility] Final Result documented in this encounter Visit Diagnoses Not on filedocumented in this encounter Care Teams Sql Data Analyst Relationship Specialty Start Date End Date Cas Galicia MD PCP - General Family Medicine 04/09/23 Cas Galicia MD [address] [place] [address] PCP - [place] [employer] 06/06/23 Cas Galicia MD [address] [place] [address] PCP - [place] [employer] 11/06/23 documented as of this encounter
--- OUTSIDE RECORDS SUMMARY | 2024-11-23 11:01 | XMS_ITS | Encounter Summary ---
Author Organization [facility] [email or web address] [facility] tem Address [facility]-[id number] [address] [place] [address] Care Team Providers Care Rn Training Name Role Phone Cas Galicia MD Primary Care Provider [phone] Encounter Details Date Type Department Care Team (Late st Contact Info) Description 03/16/2022 Orders Only [facility] [address] [facility] [address] [place] [phone] Cas Galicia MD [address] [place] [address] Social History Tobacco Use Types Packs/Day Years [...] Visit [facility], A Department of [facility] [address] [phone] Akila Ballard MD [address] [address] 12/26/2024 10:30 AM EST Office Visit [facility] Neurology, A Department of [facility] [address] [phone] Stella Flowers, SMASHER HAND-DIVERSITY MANAGER [address] [address] 01/05/2025 12:30 PM EST Clinical Support [facility] - ENT [address] [place] [address], [address] [place] [phone] Argentina Trivedi, [facility]LEAD MANUFACTURING ENGINEER [address] [place] [phone] 01/27/2025 4:15 PM EST Office Visit [facility] - [address], [address] [place] [phone] [place] [address] [place] [address] [place] [address] documented as of this encounter Procedures Procedure [...] documented as of this encounter Care Teams Rn Training Relationship Specialty Start Date End Date Cas Galicia MD PCP - General Family Medicine 11/18/20 documented as of this encounter
--- OUTSIDE RECORDS SUMMARY | 2024-11-23 11:01 | XMS_ITS | Encounter Summary ---
Author Organization [facility] [employer] [facility] tem Address [facility]-[id number] [address] [place] [address] Care Team Providers Care Pole Shaver Name Role Phone Cas Galicia MD Primary Care Provider [phone] Encounter Details Date Type Department Care Team (Late st Contact Info) Description 02/20/2022 Telephone [facility] [address] [facility] 100 [place] [phone] Akila Ballard MD [address] [facility] [address] [place] [address] Social History Tobacco Use Types Packs/Day Years [...] Visit [facility], A Department of [facility] [address] [address] Akila Ballard MD [address] [address] 12/26/2024 10:30 AM EST Office Visit [facility] Neurology, A Department of [facility] [address] [phone] Stella Flowers, INTERDISCIPLINARY PROFESSOR-DIRECTOR OF QUALITY CONTROL [address] [phone] 01/05/2025 12:30 PM EST Clinical Support [facility] - [address], [address] [place] [phone] Argentina Trivedi, [facility]-ASSEMBLY MACHINE TENDER [address] [place] [address] [place] [phone] 01/27/2025 4:15 PM EST Office Visit [facility] - [address], [address] [place] [phone] [place] [address] [place] [address] [place] [address] documented as of this encounter Visit Diagnoses Not on filedocumented in this encounter Additional Health Concerns Assessment Noted Time PHQ-9 Depression Total Score: 0 10/06/19 22 10:43 AM EDT documented as of this encounter Care Teams Pole Shaver Relationship Specialty Start Date End Date Cas Galicia MD PCP - General Family Medicine 11/18/20 documented as of this encounter
--- OUTSIDE RECORDS SUMMARY | 2024-11-23 11:01 | XMS_ITS | Encounter Summary ---
Author Organization [facility] Address [facility][id number] [address] [place] [address] Care Team Providers Care Medicare Nurse Name Role Phone Cas Galicia MD Primary Care Provider [phone] Encounter Details Date Type Department Care Team (Late st Contact Info) Description 04/25/2022 Orders Only [facility] [address] [place] [phone] Moon Flores, DARINEL Acquired hypothyroidism Social History Tobacco Use Types [...] 11/24/2024 10:00 AM EDT Office Visit [facility] Adult Endocrinology, A Department of [facility] [address] [address] Akila Ballard MD [address] [address] 12/26/2024 10:30 AM EST Office Visit [facility] Neurology, A Department of [facility] [address] [phone] Stella Flowers, BEAD WIRE TAPER-HOME HEALTH OUTREACH COORDINATOR [address] [phone] 01/05/2025 12:30 PM EST Clinical Support [facility] - ENT [address] [place] [address], [address] [place] [phone] Argentina Trivedi [facility]-EMAIL MARKETING EXECUTIVE [address] [place] [address] [address] [place] [phone] 01/27/2025 4:15 PM EST Office Visit [facility] - ENT [address] [place] [address], [address] [place] [phone] Terri Smith MD [address] [place] [address] [place] [address] documented as of this encounter Procedures Procedure Name Priority Date/Time Associated Diagnosis Comments THYROID PROFILE INCLUDES TSH FT4 Routine 04/09/2022 Acquired hypothyroidism T3, FREE Routine 04/09/2022 Acquired hypothyroidism documented in this encounter Results * T3, free (04/09/2022) External T3 Free 1.29 0.80 - 1.90 SUNQUEST 04/09/2022 Sarah Maradiaga BEAD WIRE TAPER-HOME HEALTH OUTREACH COORDINATOR LAB BLOOD ORDERABLES Final Result Performing Organization Address [facility] de Phone Number SUNQUEST * Thyroid profile includes TSH FT4 (04/09/2022) 04/09/2022 Sarah Maradiaga BEAD WIRE TAPER-HOME HEALTH OUTREACH COORDINATOR LAB BLOOD ORDERABLES Final Result Performing Organization Address [facility] de Phone Number SUNQUEST documented in this encounter Visit Diagnoses Diagnosis Acquired hypothyroidism Unspecified hypothyroidism documented in this encounter Additional Health Concerns Assessment Noted Time PHQ-9 Depression Total Score: 0 10/06/19 22 10:43 AM EDT documented as of this encounter Care Teams Medicare Nurse Relationship Specialty Start Date End Date Cas Galicia MD PCP - General Family Medicine 11/18/20 documented as of this encounter
--- OUTSIDE RECORDS SUMMARY | 2024-11-23 11:01 | XMS_ITS | Encounter Summary ---
Author Organization [facility] Address [address] [place] [address] Care Team Providers Care Business Manager Name Role Phone Cas Galicia MD Primary Care Provider [phone] Cas Galicia MD Unavailable Cas Galicia MD [...] How often do you attend chur or worship services? Patient declined 04/08/2023 Do you belong to any clubs o r organizations such as restorationist groups, unions, fraternal or athletic groups, or [...] medical care, and heating? Somewhat hard 04/08/2023 [facility] - Occupational Stress Questionnaire [...] OBGYN [address] [facility] [place] [phone] Rubens Tim DO [address] [facility] [place] [address] 07/08/2025 8:20 AM EDT Office Visit [facility] [address] [place] [address] Jodi Holden, PONCE [address] [place] [address] [place], [place] [phone] documented as of this encounter Procedures Procedure Name Priority Date/Time Associated Diagnosis Comments US RENAL BI 08/21/2023 11:25 AM EDT documented in this encounter Results * US RENAL BI (08/21/2023 11:25 AM EDT) Anatomical Region Laterality Modality Other 08/21/2023 11:2 5 AM EDT Narrative 08/21/2023 11:28 [place] [address] Ultrasound Report Signed Patient: VIJAYA TRAN MR#: [id number] : 1985 Acct:[id number] Age/Sex: 37 / F ADM Date: 08/21/23 Loc: US Attending Dr: Loraine SERRA Ordering Physician: Loraine Burnham Date of Service: 08/21/23 Procedure(s): US renal BI Accession Number(s): [id number] cc: Cas Galicia M.D.; Loraine Burnham The [address] [address] Patient Name: VIJAYA TRAN MRN: [facility]:[id number] date: 1985 Sex: F Assigned Patient Location: US Current Patient Location: US Accession/Order Number: [id number] Exam Date: 08/21/2023 10:50 Report Date: 08/21/2023 [...] Signed By: 08/21/23 1128 DD/ 1125 TD/TT: Automotive Product Specialist: Procedure Note Radiology, Radiologist, MD - 08/21/2023 [place] [address] Ultrasound Report Signed Patient: VIJAYA TRAN [facility]#: [id number] : 1985Acct:[id number] Age/Sex: 37 / FADM Date: 08/21/23 Loc: US Attending Dr: Loraine SERRA Ordering Physician: Loraine Burnham Date of Service: 08/21/23 Procedure(s): US renal BI Accession Number(s): [id number] cc: Cas Galicia M.D.; Loraine Burnham The [place] [id number] Patient Name: VIJAYA TRAN MRN: [facility]:[id number] date: 1985 Sex: F Assigned Patient Location: US Current Patient Location: US Accession/Order Number: [id number] Exam Date: 08/21/2023 10:50 Report Date: 08/21/2023 [...] pelviectasis and nonobstructing nephrolithiasis Electronically authenticated by: BELNÉ ANDRADE Date: 08/21/2023 11:25 Dictated By: Belén Andrade M.D. Signed By:08/21/23 1128 DD/ 1125 TD/TT: Automotive Product Specialist: Generic External Data Provider [facility] Final Result documented in this encounter Visit Diagnoses Not on filedocumented in this encounter Care Teams Business Manager Relationship Specialty Start Date End Date Cas Galicia MD PCP - General Family Medicine 04/09/23 Cas Galicia MD [address] [place] [address] PCP - [facility] 06/06/23 Cas Galiica MD [address] [place] [phone] PCP - [place] [employer] 11/06/23 documented as of this encounter
--- OUTSIDE RECORDS SUMMARY | 2024-11-23 11:01 | XMS_ITS | Encounter Summary ---
Author Organization [facility] Address [address] [place] [address] Care Team Providers Care Shop Estimator Name Role Phone Cas Galicia MD Primary Care Provider [phone] Cas Galicia MD Unavailable Encounter Details Date [...] week 04/08/2023 How often do you attend [facility] or anglican services? Patient declined 04/08/2023 Do you belong to any clubs o r organizations such as christianity groups, unions, fraternal or athletic groups, or [...] medical care, and heating? Somewhat hard 04/08/2023 [facility] [place] of Occupat ional Health - Occupational Stress [...] EDT Office Visit [facility] [address] [place] [address] Rodolfo Tim DO [address] [facility] [place] [address] 07/08/2025 8:20 AM EDT Office Visit [facility] [address] [place] [address] Jodi Holden, [place] [address] [place] [address] documented as of this encounter Procedures Procedure Name Priority Date/Time Associated Diagnosis Comments US PELVIS W/ TRANSVAGINAL 11/27/2023 10:36 AM EDT documented in this encounter Results * US PELVIS W/ TRANSVAGINAL (11/27/2023 10:36 AM EDT) Anatomical Region Laterality Modality Other 11/27/2023 10:3 6 AM EDT Narrative 11/27/2023 10:38 [place] [address] Ultrasound Report Signed Patient: VIJAYA TRAN MR#: [id number] : 1985 Acct:[id number] Age/Sex: 37 / F ADM Date: 11/26/23 Loc: US Attending Dr: Rodolfo Tim D.O. Ordering Physician: Rodolfo Tim D.O. Date of Service: 11/26/23 Procedure(s): US pelvis w/ transvaginal Accession Number(s): [id number] cc: Rodolfo Tim D.O.; Cas Galicia M.D. The [address] [address] Patient Name: VIJAYA TRAN MRN: [id number] date: 1985 Sex: F Assigned Patient Location: Current Patient Location: Accession/Order Number: [id number] Exam Date: 11/26/2023 07:40 Report Date: 11/27/2023 [...] Signed By: 11/27/23 1038 DD/ 1036 TD/TT: Lot Technician: Procedure Note Radiology, Radiologist, MD - 11/27/2023 [place] [address] Ultrasound Report Signed Patient: VIJAYA TRAN [facility]#: [id number] : 1985Acct:[id number] Age/Sex: 37 / FADM Date: 11/26/23 Loc: US Attending Dr: Rodolfo Tim D.O. Ordering Physician: Rodolfo Tim D.O. Date of Service: 11/26/23 Procedure(s): US pelvis w/ transvaginal Accession Number(s): [id number] cc: Rodolfo Tim D.O.; Cas Galicia M.D. The [address] [address] Patient Name: VIJAYA TRAN MRN: [id number] date: 1985 Sex: F Assigned Patient Location: US Current Patient Location: Accession/Order Number: [id number] Exam Date: 11/26/2023 07:40 Report Date: 11/27/2023 [...] M.D. Signed By:11/27/23 1038 DD/ 1036 TD/TT: Lot Technician: us Generic External Data Provider [facility] Final Result documented in this encounter Visit Diagnoses Not on filedocumented in this encounter Care Teams Shop Estimator Relationship Specialty Start Date End Date Cas Galicia MD PCP - General Family Medicine 04/09/23 Cas Galicia MD [address] [place] [address] PCP - Davie Goncalves 11/06/23 documented as of this encounter
--- OUTSIDE RECORDS SUMMARY | 2024-11-23 11:02 | XMS_ITS | Encounter Summary ---
Author Organization [facility] Address [address] [place] [address] Care Team Providers Care Safe And Vault Service Mechanic Name Role Phone Cas Galicia MD Primary Care Provider [phone] Sai Perez MD Unavailable [phone] Rubens Tim DO Unavailable [phone] Source Comments In the event this information is protected by the Federal Confidentiality of Alcohol and Drug AbusePatient Records regulations: The Federal rules restrict any use of the information to criminally investigate or prosecute any alcohol or drug abuse patient.[facility] Encounter Details Date Type Department Care Team (Late st Contact Info) Description 06/03/2021 Patient Msg Neurology [address] [place] [address] Peter Knight APRN.LACQUERER NO FORWARDING ADDRESS Results Social History Tobacco [...] ot on file 09/06/2020 Data from: https://www.neighborhoodatlas.medicine.[facility]/. Last address used for calculation Not on [...] 09/29/2025 9:15 AM EDT Office Visit [facility] Laboratory [address] [place] [address] [place] [address] 1 year follow up 09/29/2025 9:30 AM EDT Visit (SP) Office Hematology/Oncology [address] [facility] [place] [address] Shweta Masters APRN.LACQUERER [address] [facility] [place] [address] 1 year follow up documented as of this encounter Visit Diagnoses Not on filedocumented in this encounter Care Teams Safe And Vault Service Mechanic Relationship Specialty Start Date End Date Cas Galicia MD PCP - General Family Medicine 02/20/14 Sai Perez MD [address] [facility] [place] [address] Primary Staff Physician Cardiology 07/21/21 Rubens Tim DO [address] [place] [address] [place] [address] Referring Advertising Designer 08/05/21 documented as of this encounter
--- OUTSIDE RECORDS SUMMARY | 2024-11-23 11:02 | XMS_ITS | Encounter Summary ---
Author Organization [facility] Address [address] [place] [address] Care Team Providers Care Income Tax Preparer Name Role Phone Cas Galicia MD Primary Care Provider [phone] Sai Perez MD Unavailable [phone] Rubens Tim DO Unavailable [phone] Source Comments In the event this information is protected by the Federal Confidentiality of Alcohol and Drug AbusePatient Records regulations: The Federal rules restrict any use of the information to criminally investigate or prosecute any alcohol or drug abuse patient.[facility] Encounter Details Date Type Department Care Team (Late st Contact Info) Description 12/20/2021 Patient Msg [facility] [address] [place] [address] [facility] [address] [place] [address] genetic test result Social History [...] N ot on file 08/15/2021 Data from: https://www.neighborhoodatlas.medicine.[facility].edu/. Last address used for calculation [address] [...] Description 09/29/2025 9:15 AM EDT Office Visit [facility] [address] [place] [address] [place] [address] 1 year follow up 09/29/2025 9:30 AM EDT Visit (SP) Office Hematology/Oncology [address] [facility] [place] [address] Shweta Masters APRN.TAX LAWYER [address] [facility] [place] [address] 1 year follow up documented as of this encounter Visit Diagnoses Not on filedocumented in this encounter Care Teams Income Tax Preparer Relationship Specialty Start Date End Date Cas Galicia MD PCP - General Family Medicine 02/20/14 Sai Perez MD [address] [facility] [place] [address] Primary Staff Physician Cardiology 07/21/21 Rubens Tim DO [address] [place] [address] [place] [address] Referring Quencher Operator 08/05/21 documented as of this encounter
--- OUTSIDE RECORDS SUMMARY | 2024-11-23 11:02 | XMS_ITS | Encounter Summary ---
Author Organization [facility] Address [id number] [address] [place] [address] Care Team Providers Care Chain Tender Name Role Phone Cas Galicia MD Primary Care Provider [phone] Reason for Visit * Reason Comments Med Change Request Encounter Details Date Type Department Care Team (Late st Contact Info) Description 08/24/2021 Refill [facility] [address] [facility] [address] [place] [address] Stella Flowers, SUPERVISOR VENEER-LUMBER SORTER [address] [employer] [facility] [address] [place] [address] Migraine without aura and without [...] Description 11/24/2024 10:00 AM EDT Office Visit [facility] Adult Endocrinology, A Department of [facility] [address] [phone] Akila Ballard MD [address] [address] 12/26/2024 10:30 AM EST Office Visit [facility] Neurology, A Department of [facility] [address] [address] Stella Flowers, SUPERVISOR VENEER-LUMBER SORTER [address] [phone] 01/05/2025 12:30 PM EST Clinical Support [facility] - ENT [address] [place] [address], [address] [place] [address] [place] Trivedi [facility]-YARN BLEACHING MACHINE OPERATOR [address] [place] [address] [place] [address] 01/27/2025 4:15 PM EST Office Visit [facility] - ENT [address] [place] [address], [address] [place] [address] [place] [address] [place] [address] documented as of this encounter Visit Diagnoses Diagnosis Migraine without aura and without status migrainosus, not intractable documented in this encounter Additional Health Concerns Assessment Noted Time PHQ-9 Depression Total Score: 17 022 10:30 AM EDT documented as of this encounter Care Teams Chain Tender Relationship Specialty Start Date End Date Cas Galicia MD PCP - General Family Medicine 11/18/20 documented as of this encounter
--- OUTSIDE RECORDS SUMMARY | 2024-11-23 11:02 | XMS_ITS | Encounter Summary ---
Author Organization [facility] Address [address] [place] [address] Care Team Providers Care Channel Worker Name Role Phone Cas Galicia MD Primary Care Provider [phone] Encounter Details Date Type Department Care Team (Late st Contact Info) Description 07/10/2024 Orders Only [facility] [address] [facility] [facility] [address] Halima Morris MD [address] [place] [address] Social History Tobacco Use Types Packs/Day [...] often do you attend chur ch or restorationist services? Patient declined 04/08/2023 Do you belong [...] 04/08/2023 [facility] of Occupat ional Health - [...] facility (including now)? Patient declined 04/08/2023 Comments No [...] Visit [facility] [address] [facility] [address] Rubens Tim DO [address] [facility] [place] [address] 07/08/2025 8:20 AM EDT Office Visit [facility] [address] [place] [address] Jodi Holden, PA [address] [place] [address] documented as of this encounter Procedures Procedure Name Priority Date/Time Associated Diagnosis Comments SCANNED LABS Routine 07/10/2024 10:35 AM EDT documented in this encounter Results * SCANNED LABS (07/10/2024 10:35 AM EDT) Halima Morris MD LAB CHG PERFORMABLES Final Res ult documented in this encounter Visit Diagnoses Not on filedocumented in this encounter Care Teams Channel Worker Relationship Specialty Start Date End Date Cas Galicia MD PCP - General Family Medicine 04/09/23 documented as of this encounter
--- OUTSIDE RECORDS SUMMARY | 2024-11-23 11:02 | XMS_ITS | Encounter Summary ---
Author Organization [facility] Address [id number] [address] [place] [address] Care Team Providers Care Track Broom Operator Name Role Phone Cas Galicia MD Primary Care Provider Encounter Details Date Type Department Care Team (Late st Contact Info) Description 08/30/2021 Orders Only [facility] [address] [facility] [address] [place] [address] Sierra Hutchinson, PIANO TEACHER Social History Tobacco Use Types Packs/Day Years [...] Description 11/24/2024 10:00 AM EDT Office Visit [facility] Adult Endocrinology, A Department of [facility] [address] [address] Akila Ballard MD [address] [address] 12/26/2024 10:30 AM EST Office Visit [facility] Neurology, A Department of [facility] [address] [phone] Stella Flowers APRN-MILLINERY BLOCKER [address] [phone] 01/05/2025 12:30 PM EST Clinical Support [facility] - [address], [address] [place] [address] [place] Trivedi [facility]-SLURRY TANK OPERATOR [address] [place] [address] [address] [place] [address] 01/27/2025 4:15 PM EST Office Visit [facility] - [address], [address] [place] [address] Terri Smith MD [address] [place] [address] [place] [address] documented as of this encounter Visit Diagnoses Not on filedocumented in this encounter Additional Health Concerns Assessment Noted Time PHQ-9 Depression Total Score: 17 022 10:30 AM EDT documented as of this encounter Care Teams Track Broom Operator Relationship Specialty Start Date End Date Cas Galicia MD PCP - General Family Medicine 11/18/20 documented as of this encounter
--- OUTSIDE RECORDS SUMMARY | 2024-11-23 11:02 | XMS_ITS | Encounter Summary ---
Author Organization [facility] Address [address] [place] [address] Care Team Providers Care Safety Sitter Name Role Phone Cas Galicia MD Primary Care Provider [phone] Sai Perez MD Unavailable [phone] Rubens Tim DO Unavailable [phone] Source Comments In the event this information is protected by the Federal Confidentiality of Alcohol and Drug AbusePatient Records regulations: The Federal rules restrict any use of the information to criminally investigate or prosecute any alcohol or drug abuse patient.[facility] Encounter Details Date Type Department Care Team (Late st Contact Info) Description 06/14/2021 Get Medical Advice Endocrinology [address] [place] [address] Jackelyn Marques MD [address] [place] [address] Labs Social History Tobacco Use [...] ot on file 09/06/2020 Data from: https://www.neighborhoodatlas.medicine.[facility]/. Last address used for calculation Not [...] Office Visit [facility] Laboratory [address] [facility] [place] [place] [address] 1 year follow up 09/29/2025 9:30 AM EDT Visit (SP) Office Hematology/Oncology [address] [facility] [place] [address] Shweta Masters APRN.DONKEY RIDE OPERATOR [address] [facility] [facility] [place] [address] 1 year follow up documented as of this encounter Visit Diagnoses Not on filedocumented in this encounter Care Teams Safety Sitter Relationship Specialty Start Date End Date Cas Galicia MD PCP - General Family Medicine 02/20/14 Sai Perez MD [address] [facility] [place] [address] Primary Staff Physician Cardiology 07/21/21 Rubens Tim DO [address] [place] [address] [place] [address] Referring Combine Mechanic 08/05/21 documented as of this encounter
--- OUTSIDE RECORDS SUMMARY | 2024-11-23 11:02 | XMS_ITS | Encounter Summary ---
Author Organization [facility] Address [id number] [address] [place] [address] Care Team Providers Care Subgrade Tester Name Role Phone Cas Galicia MD Primary Care Provider [phone] Encounter Details Date Type Department Care Team (Late Contact Info) Description 03/11/2021 Orders Only [facility] [address] [facility] [address] [place] [phone] Sasha Fernandez CMA Memory difficulties; Brain fog [...] Description 11/24/2024 10:00 AM EDT Office Visit [facility] Adult Endocrinology, A Department of [facility] [address] [address] Akila Ballard MD [address] [address] 12/26/2024 10:30 AM EST Office Visit [facility] Neurology, A Department of [facility] [address] [phone] Stella Flowers APRNAD TRAFFICKER [address] [phone] 01/05/2025 12:30 PM EST Clinical Support [facility] - ENT [address] [place] [address], [address] [place] [address] [place] Trivedi CCC-QUALITY AUDIT REPRESENTATIVE [address] [place] [address] [address] [place] [address] 01/27/2025 4:15 PM EST Office Visit [facility] - ENT [address] [place] [address], [address] [place] [address] Terri Smith MD [address] [place] [address] [place] [address] documented as of this encounter Procedures Procedure [...] Pricila screen negative SUNQUEST 03/03/2021 Stella Flowers CHEMICAL TREATMENT OPERATOR-AD TRAFFICKER LAB BLOOD ORDERABLES Final Result Performing Organization Address City/[facility]/ZIP Co de Phone Number SUNQUEST * Protein electrophoresis, serum (03/03/2021) Albumin 4.6 SUNQUEST Alpha 1 0.3 SUNQUEST Alpha 2 9 SUNQUEST Gamma Globulin 0.8 SUNQUEST Total Protein 7.1 SUNQUEST 03/03/2021 Stella Flowers CHEMICAL TREATMENT OPERATOR-AD TRAFFICKER LAB BLOOD ORDERABLES Final Result Performing Organization Address City/[facility]/ZIP Co de Phone Number SUNQUEST * DRVVT (03/03/2021) Dilute Viper Venom Time 39 SUNQUEST 03/03/2021 Stella Flowers CHEMICAL TREATMENT OPERATOR-AD TRAFFICKER LAB BLOOD ORDERABLES Final Result SUNQUEST * Homocysteine total (03/03/2021) Homocysteine 8.74 SUNQUEST 03/03/2021 Stella Flowers CHEMICAL TREATMENT OPERATOR-AD TRAFFICKER LAB BLOOD ORDERABLES Final Result Performing Organization Address [facility] Co de Phone Number SUNQUEST * Methylmalonic acid screen (03/03/2021) Methylmalonic Acid 0.30 SUNQUEST 03/03/2021 Stella Flowers CHEMICAL TREATMENT OPERATOR-[facility] LAB BLOOD ORDERABLES Final Result Performing Organization Address [facility] de Phone Number SUNQUEST * CBC auto differential (03/03/2021) External [...] Absolute Basophil 0.1 SUNQUEST 03/03/2021 Stella Flowers [facility] LAB BLOOD ORDERABLES Final Result Performing Organization Address [facility] de Phone Number SUNQUEST * Folate Serum (03/03/2021) Folate >25.0 SUNQUEST 03/03/2021 Stella Flowers [facility] LAB BLOOD ORDERABLES Final Result Performing Organization Address [facility] Co de Phone Number SUNQUEST * Vitamin B12 (03/03/2021) Vitamin B-12 184 SUNQUEST 03/03/2021 Stella Flowers CHEMICAL TREATMENT OPERATOR-[facility] LAB BLOOD ORDERABLES Final Result Performing Organization Address City/[facility]/ZIP Co de Phone Number SUNQUEST documented in this encounter Visit Diagnoses Diagnosis Memory difficulties Memory loss Brain fog documented in this encounter Additional Health Concerns Assessment Noted Time PHQ-9 Depression Total Score: 16 01/12/2 022 1:06 PM EST documented as of this encounter Care Teams Subgrade Tester Relationship Specialty Start Date End Date Cas Galicia MD PCP - General Family Medicine 11/18/20 documented as of this encounter
--- OUTSIDE RECORDS SUMMARY | 2024-11-23 11:02 | XMS_ITS | Encounter Summary ---
Author Organization [facility] Address [address] [place] [address] Care Team Providers Care Steamtable Worker Name Role Phone Cas Galicia MD Primary Care Provider [phone] Cas Galicia MD Unavailable Encounter Details Date Type Department Care Team (Late st Contact Info) Description 04/24/2024 Abstract [facility] [address] [facility] [place] [address] Kassie Coffman LPN Social History Tobacco Use [...] week 04/08/2023 How often do you attend [facility] or sikh services? Patient declined 04/08/2023 Do you belong to any clubs o r organizations such as oriental orthodox groups, unions, fraternal or athletic groups, [...] medical care, and heating? Somewhat hard 04/08/2023 [facility] Occupat ional [facility] - Occupational Stress Questionnaire Answer Date Recorded [...] place to sleep or slept in a skilled nursing (including now)? Patient declined 04/08/2023 Comments No [...] Visit [facility] [address] [facility] [place] [phone] Rubens Tim DO [address] [facility] [place] [address] 07/08/2025 8:20 AM EDT Office Visit [facility] [address] [place] [address] Jodi Holden, PONCE [address] [place] [address] documented as of this encounter Visit Diagnoses Not on filedocumented in this encounter Care Teams Steamtable Worker Relationship Specialty Start Date End Date Cas Galicia MD PCP - General Family Medicine 04/09/23 Cas Galicia MD [address] [place] [address] PCP - Davie Commercial 11/06/23 documented as of this encounter
--- OUTSIDE RECORDS SUMMARY | 2024-11-23 11:02 | XMS_ITS | Encounter Summary ---
Author Organization [facility] Address [address] [place] [address] Care Team Providers Care Justice Court Deputy Clerk Name Role Phone Cas Galicia MD Primary Care Provider [phone] Sai Perez MD Unavailable [phone] Rubens Tim DO Unavailable [phone] Source Comments In the event this information is protected by the Federal Confidentiality of Alcohol and Drug AbusePatient Records regulations: The Federal rules restrict any use of the information to criminally investigate or prosecute any alcohol or drug abuse patient.[facility] Encounter Details Date Type Department Care Team (Late st Contact Info) Description 05/30/2021 Patient Msg Neurology [address] [place] [address] Provider, [facility] Important Medication for [...] N ot on file 09/06/2020 Data from: https://www.neighborhoodatlas.medicine.[facility]/. Last address used for calculation Not [...] Description 09/29/2025 9:15 AM EDT Office Visit [facility] Laboratory [address] [place] [address] 1 year follow up 09/29/2025 9:30 AM EDT Visit (SP) Office Hematology/Oncology [address] [facility] [place] [address] Shweta Masters APRN.[employer] PE TEACHER [address] [facility] [place] [address] 1 year follow up documented as of this encounter Visit Diagnoses Not on filedocumented in this encounter Care Teams Justice Court Deputy Clerk Relationship Specialty Start Date End Date Cas Galicia MD PCP - General Family Medicine 02/20/14 Sai Perez MD [address] [facility] [facility] [place] [address] Primary Staff Physician Cardiology 07/21/21 Rubens Tim DO [address] [place] [address] [place] [address] Referring Art Therapist 08/05/21 documented as of this encounter
--- OUTSIDE RECORDS SUMMARY | 2024-11-23 11:02 | XMS_ITS | Encounter Summary ---
Author Organization [facility] Address [address] [place] [address] Care Team Providers Care Machine Tester Name Role Phone Cas Galicia MD Primary Care Provider [phone] Reason for Visit * Reason Comments Med Refill Encounter Details Date Type Department Care Team (Late st Contact Info) Description 09/16/2024 Refill [facility] [address] [place] [address] Cas Galicia MD [address] [place] [address] Vitamin D deficiency Social History Tobacco Use [...] or ex-partner? No 08/08/2024 Social Connection and Isolation Panel Answer Date Recorded In a typical week, how many times do you talk on the phone with family, friends, or neighbors? More than three times a week 08/08/2024 How often do you get togethe r with friends or relatives? Patient declined 08/08/2024 How often do you attend [facility] or bahai services? Patient declined 08/08/2024 Do you belong [...] medical care, and heating? Somewhat hard 08/08/2024 [facility] of Occupat ional [facility] - Occupational Stress Questionnaire Answer Date [...] any time in the past 12 m [facility], were you homeless or living in a [...] EDT Office Visit [facility] [address] [place] [address] Rubens Tim DO [address] [facility] [address] [place] [place], [place] [phone] 07/08/2025 8:20 AM EDT Office Visit [facility] [place] [facility] [address] [facility] [place] [address] Jodi Holden PA [address] [place] [address] documented as of this encounter Visit Diagnoses Diagnosis Vitamin D deficiency documented in this encounter Care Teams Machine Tester Relationship Specialty Start Date End Date Cas Galicia MD PCP - General Family Medicine 04/09/23 documented as of this encounter
--- OUTSIDE RECORDS SUMMARY | 2024-11-23 11:02 | XMS_ITS | Encounter Summary ---
Author Organization [facility] Address [address] [place] [address] Care Team Providers Care Wire Wheeler Name Role Phone Cas Galicia MD Primary Care Provider [phone] Sai Perez MD Unavailable [phone] Rubens Tim DO Unavailable [phone] Source Comments In the event this information is protected by the Federal Confidentiality of Alcohol and Drug AbusePatient Records regulations: The Federal rules restrict any use of the information to criminally investigate or prosecute any alcohol or drug abuse patient.[facility] Encounter Details Date Type Department Care Team (Late st Contact Info) Description 12/19/2021 Get Medical Advice [facility] [employer] [address] [place] [address] Dayanna Sotomayor, [facility] [address] [place] [address] Genetic testing Social History Tobacco [...] file 08/15/2021 Data from: https://www.neighborhoodatlas.medicine.[facility].edu/. Last address used for calculation [...] Description 09/29/2025 9:15 AM EDT Office Visit [facility] [address] [place] [address] [place] [address] 1 year follow up 09/29/2025 9:30 AM EDT Visit (SP) Office Hematology/Oncology [address] [address] Shweta Masters APRN.LAUNCH ENGINEER [address] [place] [address] 1 year follow up documented as of this encounter Visit Diagnoses Not on filedocumented in this encounter Care Teams Wire Wheeler Relationship Specialty Start Date End Date aCs Galicia MD PCP - General Family Medicine 02/20/14 Sai Perez MD [address] [facility] [place] [address] Primary Staff Physician Cardiology 07/21/21 Rubens Tim DO [address] [place] [address] [place] [address] Referring Fine Grader 08/05/21 documented as of this encounter
--- OUTSIDE RECORDS SUMMARY | 2024-11-23 11:02 | XMS_ITS | Encounter Summary ---
Author Organization [facility] Address [address] [place] [address] Care Team Providers Care Agriculture Intern Name Role Phone Cas Galicia MD Primary Care Provider [phone] Sai Perez MD Unavailable [phone] Rubens Tim DO Unavailable [phone] Source Comments In the event this information is protected by the Federal Confidentiality of Alcohol and Drug AbusePatient Records regulations: The Federal rules restrict any use of the information to criminally investigate or prosecute any alcohol or drug abuse patient.[facility] Encounter Details Date Type Department Care Team (Late st Contact Info) Description 02/15/2022 [facility] [address] [place] [address] Provider, Ccf Referral to Wellness [...] N ot on file 02/17/2022 Data from: https://www.neighborhoodatlas.medicine.[facility]/. Last address used for calculation [address] [...] Assessment Author No 02/23/2014 2:04 PM Ang Pgae MA documented as of this encounter Mental [...] Office Visit [facility] [address] [place] [address] 1 year follow up 09/29/2025 9:30 AM EDT Visit (SP) Office Hematology/Oncology [address] [place] [address] Shweta Masters APRN.[address] [place] [address] 1 year follow up documented as of this encounter Visit Diagnoses Not on filedocumented in this encounter Care Teams Agriculture Intern Relationship Specialty Start Date End Date Cas Galicia MD PCP - General Family Medicine 02/20/14 Sai Perez MD [address] [facility] [address] Primary Staff Physician Cardiology 07/21/21 Rubens Tim DO [address] [place] [address] [place] [address] Referring Exceptional Student Education Teacher 08/05/21 documented as of this encounter
--- OUTSIDE RECORDS SUMMARY | 2024-11-23 11:02 | XMS_ITS | Encounter Summary ---
Author Organization [facility] Address [address] [place] [address] Care Team Providers Care Scaffold Builder Name Role Phone Cas Galicia MD Primary Care Provider [phone] Cas Galicia MD Unavailable Encounter Details Date [...] week 04/08/2023 How often do you attend [facility] or hoahaoism services? Patient declined 04/08/2023 Do you belong to any clubs o r organizations such as latter-day groups, unions, fraternal or athletic groups, or [...] care, and heating? Somewhat hard 04/08/2023 [facility] of Occupat ional Health - Occupational Stress [...] EDT Office Visit [facility] [address] [facility] [place] [address] Rubens Tim DO [address] [facility] [place] [address] 07/08/2025 8:20 AM EDT Office Visit [facility] [facility] [address] [place] [address] Jodi Holden, PA [address] [place] [address] documented as of this encounter Procedures Procedure Name Priority Date/Time Associated Diagnosis Comments CT ABDOMEN/PELVIS WO CONT 10/09/2023 3:39 PM EDT documented in this encounter Results * CT ABDOMEN/PELVIS WO CONT (10/09/2023 3:39 PM EDT) Anatomical Region Laterality Modality Radiographic Naina ging 10/09/2023 3:39 PM EDT Narrative 10/09/2023 3:42 PM EDT [address] [address] [address] Scan Report Signed Patient: VIJAYA TRAN MR#: [id number] : 1985 Acct:[id number] Age/Sex: 37 / F ADM Date: 10/09/23 Loc: CT Attending Dr: Selma Choe DRIER TENDER [place]THALENE Ordering Physician: Selma Choe NP Date of Service: 10/09/23 Procedure(s): CT abdomen pelvis wo con Accession Number(s): [id number] cc: Cas Galicia M.D. The [address] [address] Patient Name: VIJAYA TRAN MRN: [id number] date: 1985 Sex: F Assigned Patient Location: CT Current Patient Location: CT Accession/Order Number: [id number] Exam Date: 10/09/2023 14:16 Report Date: 10/09/2023 [...] Signed By: 10/09/23 1542 DD/ 1539 TD/TT: Veterinary Dentist: Procedure Note Radiology, Radiologist, MD - 10/09/2023 [place] [address] CT Scan Report Signed Patient: VIJAYA TRAN [facility]#: [id number] : 1985Acct:[id number] Age/Sex: 37 / FADM Date: 10/09/23 Loc: CT Attending Dr: Selma Choe DRIER TENDER NAPHTHALENE Ordering Physician: Selma Choe NP Date of Service: 10/09/23 Procedure(s): CT abdomen pelvis wo con Accession Number(s): [id number] cc: Cas Galicia M.D. [place] [id number] Patient Name: VIJAYA TRAN MRN: [id number] date: 1985 Sex: F Assigned Patient Location: CT Current Patient Location: CT Accession/Order Number: [id number] Exam Date: 10/09/2023 14:16 Report Date: 10/09/2023 [...] Dictated By: Dano Hill M.D. Signed By:10/09/23 1540 DD/ 1532 TD/TT: Veterinary Dentist: us Generic External Data Provider IMG XR PROCEDURES Final Result documented in this encounter Visit Diagnoses Not on filedocumented in this encounter Care Teams Scaffold Builder Relationship Specialty Start Date End Date Cas Galicia MD PCP - General Family Medicine 04/09/23 Cas Galicia MD [address] [place] [address] PCP - Davie Goncalves 11/06/23 documented as of this encounter
--- OUTSIDE RECORDS SUMMARY | 2024-11-23 11:02 | XMS_ITS | Encounter Summary ---
Author Organization [facility] Address [id number] [address] [place] [address] Care Team Providers Care Band Maker Name Role Phone Cas Galicia MD Primary Care Provider Encounter Details Date Type Department Care Team (Late st Contact Info) Description 10/23/2022 Orders Only [facility] [address] [place] [phone] Sierra Brody CNA Acquired hypothyroidism; Hypothyroidism, unspecified [...] Description 11/24/2024 10:00 AM EDT Office Visit [facility] Adult Endocrinology, A Department of [facility] [place] [facility] [address] [address] Akila Ballard MD [address] [address] 12/26/2024 10:30 AM EST Office Visit [facility] Neurology, A Department of [facility] [place] [facility] [address] [address] Stella Flowers, SOFTWARE APPLICATIONS SPECIALIST-PRODUCTION MACHINE COMPUTER OPERATOR [address] [phone] 01/05/2025 12:30 PM EST Clinical Support [facility] - ENT [address] [place] [address], [address] [place] [phone] [place] Trivedi [facility]-READING TEACHER [address] [place] [address] [address] [place] [phone] 01/27/2025 4:15 PM EST Office Visit [facility] - ENT [address] [place] [address], [address] [place] [address] [place] [address] [place] [address] [place] [address] documented as of this encounter Procedures Procedure Name Priority Date/Time Associated Diagnosis Comments T3, FREE Routine 10/06/2022 Acquired hypothyroidism TSH Routine 10/06/2022 Hypothyroidism, unspecified type documented in this encounter Results * TSH (10/06/2022) External Tsh 4.255 SUNQUEST 10/06/2022 us Akila Ballard MD LAB BLOOD ORDERABLES Final Result SUNQUEST * T3, free (10/06/2022) 10/06/2022 us Sarah Maradiaga SOFTWARE APPLICATIONS SPECIALIST-PRODUCTION MACHINE COMPUTER OPERATOR LAB BLOOD ORDERABLES Final Result Performing Organization Address City/[facility]/ZIP Co de Phone Number SUNQUEST documented in this encounter Visit Diagnoses Diagnosis Acquired hypothyroidism Unspecified hypothyroidism Hypothyroidism, unspecified type documented in this encounter Additional Health Concerns Assessment Noted Time PHQ-9 Depression Total Score: 0 06/30/19 23 1:10 PM EDT documented as of this encounter Care Teams Band Maker Relationship Specialty Start Date End Date Cas Galicia MD PCP - General Family Medicine 11/18/20 documented as of this encounter
--- OUTSIDE RECORDS SUMMARY | 2024-11-23 11:02 | XMS_ITS | Encounter Summary ---
Author Organization [facility] Address [address] [facility] [place] [address] Care Team Providers Care Cable Strander Name Role Phone Cas Galicia MD Primary Care Provider + Reason for Visit * Reason Comments Other Encounter Details Date Type Department Care Team (Late Contact Info) Description 03/13/2014 Refill [facility] [address] [place] [address] Loraine Morgan DO [address] [place] [address] Other Social History Tobacco Use [...] Description 03/19/2025 9:45 AM EST Office Visit [facility] PUL Part of [place] [phone] David Mcclure MD [facility] [address] [place] [address] KATELIN; 6 mth follow up with Samuel [...] documented as of this encounter Care Teams Cable Strander Relationship Specialty Start Date End Date Cas Galicia MD PCP - General 09/04/11 documented as of this encounter
--- OUTSIDE RECORDS SUMMARY | 2024-11-23 11:02 | XMS_ITS | Encounter Summary ---
Author Organization [facility] Address [address] [place] [address] Care Team Providers Care Boiler Washer Name Role Phone Cas Galicia MD Primary Care Provider [phone] Sai Perez MD Unavailable [phone] Rubens Tim DO Unavailable [phone] Source Comments In the event this information is protected by the Federal Confidentiality of Alcohol and Drug AbusePatient Records regulations: The Federal rules restrict any use of the information to criminally investigate or prosecute any alcohol or drug abuse patient.[facility] Encounter Details Date Type Department Care Team (Late st Contact Info) Description 11/28/2021 Get Medical Advice Cardiology [address] [place] [address] Sai Perez MD [address] [place] [address] Follow up after testing Social [...] Data from: https://www.neighborhoodatlas.medicine.[facility]/. Last address used for calculation [...] 9:15 AM EDT Office Visit [facility] [address] [place] [address] 1 year follow up 09/29/2025 9:30 AM EDT Visit (SP) Office Hematology/Oncology [address] [place] [address] Shweta Masters APRN.MEDICAL OFFICE COORDINATOR [address] [place] [address] 1 year follow up documented as of this encounter Visit Diagnoses Not on filedocumented in this encounter Care Teams Boiler Washer Relationship Specialty Start Date End Date Cas Galicia MD PCP - General Family Medicine 02/20/14 Sai Perez MD [address] [place] [address] Primary Staff Physician Cardiology 07/21/21 Rubens Tim DO [address] [place], [place] [address] [address] Referring Director Of Loss Prevention 08/05/21 documented as of this encounter
--- OUTSIDE RECORDS SUMMARY | 2024-11-23 11:02 | XMS_ITS | Encounter Summary ---
Author Organization [facility] Address [id number] [address] [place] [address] Care Team Providers Care Afterschool Babysitter Name Role Phone Cas Galicia MD Primary Care Provider [phone] Encounter Details Date Type Department Care Team ([facility] Contact Info) Description 02/18/2021 Orders Only [facility] [address] [phone] Ref Prov, [place] [address] Social History Tobacco Use Types Packs/Day Years [...] 11/24/2024 10:00 AM EDT Office Visit [facility] Adult Endocrinology, A Department of [facility] [address] [address] Akila Ballard MD [address] [address] 12/26/2024 10:30 AM EST Office Visit [facility] Neurology, A Department of [facility] [address] [address] Stella Flowers [facility] [address] [phone] 01/05/2025 12:30 PM EST Clinical Support [facility] - ENT [address] [place] [address], [address] [place] [phone] [place] Trivedi [facility]-SENIOR TAX MANAGER [address] [place] [address] [address] [place] [address] 01/27/2025 4:15 PM EST Office Visit [facility] - ENT [address] [place] [address], [address] [place] [address] [place] [address] [place] [address] [place] [address] documented as of this encounter Procedures Procedure [...] (11/14/2020) us Not In System Ref Prov [place] IMAGING Final Res ult Performing Organization Address [facility] Phone Number MANUALLY TRANSCRIBED RESULTS * X-ray chest 1 [...] ORDERABLES Final Res ult Performing Organization Address [facility] Phone Number MANUALLY TRANSCRIBED RESULTS * Echo 2.0 (11/12/2020) Anatomical Region Laterality Modality Chest N/A Ultrasound us Not In System Ref Prov CV ECHO ORDERABLES Final Result * ECG 12 lead (11/12/2020) us Not In System Ref Prov ECG ORDERABLES Final Res ult Performing Organization Address [facility] Phone Number MANUALLY TRANSCRIBED RESULTS * CT angiogram chest (11/11/2020) Anatomical Region Laterality Modality Lung, Body, Chest, Vascular, Body Covera N/A Computed Tomography us Not In System Ref Prov IMG CT ORDERABLES Final R esult * ECG 12 lead (11/11/2020) us Not In System Ref Prov ECG ORDERABLES Final Res ult Performing Organization Address [facility] de Phone Number MANUALLY TRANSCRIBED RESULTS documented in this encounter Visit Diagnoses Not on filedocumented in this encounter Additional Health Concerns Assessment Noted Time PHQ-9 Depression Total Score: 16 022 1:06 PM EST documented as of this encounter Care Teams Afterschool Babysitter Relationship Specialty Start Date End Date Cas Galicia MD PCP - General Family Medicine 11/18/20 documented as of this encounter
--- OUTSIDE RECORDS SUMMARY | 2024-11-23 11:02 | XMS_ITS | Encounter Summary ---
Author Organization [facility] tem Address [id number] [address] [place] [address] Care Team Providers Care Health Information Internship Name Role Phone Cas Galicia MD Primary Care Provider [phone] Encounter Details Date Type Department Care Team (Late st Contact Info) Description 06/17/2021 Orders Only [facility] [address] [place] [phone] Ricky Anaya MD [address] [place] [address] Pre-op testing; Contact with and (suspected) exposure [...] Upcoming Encounters Date Type Department Care Team ([facility] st Contact Info) Description 11/24/2024 10:00 AM EDT Office Visit [facility] Adult Endocrinology, A Department of [facility] [address] [phone] Akila Ballard MD [address] [address] 12/26/2024 10:30 AM EST Office Visit [facility] Neurology, A Department of [facility] [address] [address] Stella Flowers, BILINGUAL COUNTER SALES RETAIL-DETECTIVE SERGEANT [address] [phone] 01/05/2025 12:30 PM EST Clinical Support [facility] - ENT [address] [place] [address], [address] [place] [phone] [place] Trivedi [facility]-BIG DATA ANALYTICS LEAD [address] [place] [address] [address] [place] [phone] 01/27/2025 4:15 PM EST Office Visit [facility] - ENT [address] [place] [address], [address] [place] [address] [place] [address] [place] [address] [place] [address] documented as of this encounter Visit Diagnoses Diagnosis Pre-op testing Unspecified pre-operative examination Contact with and (suspected) exposure to covid-19 documented in this encounter Additional Health Concerns Assessment Noted Time PHQ-9 Depression Total Score: 17 2 022 10:30 AM EDT documented as of this encounter Care Teams Health Information Internship Relationship Specialty Start Date End Date Cas Galicia MD PCP - General Family Medicine 11/18/20 documented as of this encounter
--- OUTSIDE RECORDS SUMMARY | 2024-11-23 11:02 | XMS_ITS | Encounter Summary ---
Author Organization [facility] Address [address] [facility] [place] [address] Care Team Providers Care Snack Steward Name Role Phone Cas Galicia MD Primary [...] st Contact Info) Description 06/04/2020 Orders Only [facility] Part of [address] [address] Akila Ballard MD [address] [place] [address] Social History Tobacco Use Types Packs/Day Years [...] 9:45 AM EST Office Visit [facility] Part of [facility] [address] [place] [address] David Mcclure MD [address] [facility] [address] [place] [address] KATELIN; 6 mth follow up with Samuel [...] documented as of this encounter Care Teams Snack Steward Relationship Specialty Start Date End Date Cas Galicia MD PCP - General 09/04/11 documented as of this encounter
--- OUTSIDE RECORDS SUMMARY | 2024-11-23 11:02 | XMS_ITS | Encounter Summary ---
Author Organization [facility] Address [address] [place] [address] Care Team Providers Care Patient Admitting Clerk Name Role Phone Cas Galicia MD Primary Care Provider Cas Galicia MD Unavailable Encounter Details Date Type Department Care Team (Late st Contact Info) Description 04/24/2024 Abstract [facility] [address] [place] [address] Kassie Coffman LPN Social History Tobacco [...] week 04/08/2023 How often do you attend [facility] or mu-ism services? Patient declined 04/08/2023 Do you belong to any clubs o r organizations such as adventism groups, unions, fraternal or athletic groups, or [...] medical care, and heating? Somewhat hard 04/08/2023 [facility] of Occupat ional [facility] - Occupational Stress Questionnaire Answer Date [...] [address] [place] [phone] Rubens Tim DO [address] [place] [address] 07/08/2025 8:20 AM EDT Office Visit [facility] [address] [place] [address] Jodi Holden, PONCE [address] [place] [address] documented as of this encounter Visit Diagnoses Not on filedocumented in this encounter Care Teams Patient Admitting Clerk Relationship Specialty Start Date End Date Cas Galicia MD PCP - General Family Medicine 04/09/23 Cas Galicia MD [address] [place] [address] PCP - Davie Commercial 11/06/23 documented as of this encounter
--- OUTSIDE RECORDS SUMMARY | 2024-11-23 11:02 | XMS_ITS | Encounter Summary ---
Author Organization [facility] Address [address] [place] [address] Care Team Providers Care Wooling Machine Operator Name Role Phone Cas Galicia MD Primary Care Provider [phone] Encounter Details Date Type Department Care Team (Late st Contact Info) Description 08/11/2024 Results [facility] [address] [place] [address] Cas Galicia MD [address] [place] [phone] ALL CBC WITH AUTO DIFF, MLR HEMOGLOBIN [...] declined 08/08/2024 How often do you attend [facility] or worship services? Patient declined 08/08/2024 Do you belong [...] medical care, and heating? Somewhat hard 08/08/2024 [facility] of Occupat ional Health - Occupational Stress [...] any time in the past 12 m [facility], were you homeless or [...] EDT Office Visit [facility] [address] [place] [phone] Rubens Tim DO [address] [facility] [address] Kathie [place], [place] [phone] 07/08/2025 8:20 AM EDT Office Visit [facility] [address] [place] [address] Jodi Holden, PONCE [address] [place] [address] documented as of this encounter Visit Diagnoses Not on filedocumented in this encounter Care Teams Wooling Machine Operator Relationship Specialty Start Date End Date Cas Galicia MD PCP - General Family Medicine 04/09/23 documented as of this encounter
--- OUTSIDE RECORDS SUMMARY | 2024-11-23 11:02 | XMS_ITS | Encounter Summary ---
Author Organization [facility] Address [address] [place] [address] Care Team Providers Care Equipment Maintenance Engineer Name Role Phone Cas Galicia MD Primary Care Provider [phone] Sai Perez MD Unavailable [phone] Rubens Tim DO Unavailable [phone] Source Comments In the event this information is protected by the Federal Confidentiality of Alcohol and Drug AbusePatient Records regulations: The Federal rules restrict any use of the information to criminally investigate or prosecute any alcohol or drug abuse patient.[facility] Encounter Details Date Type Department Care Team (Late st Contact Info) Description 09/21/2020 Get Medical Advice Neurology [address] [place] [address] [place] [address] [place], [place] [phone] RE: Visit Follow Up Question Social History [...] on file 09/06/2020 Data from: https://www.neighborhoodatlas.medicine.[facility]/. Last address used for calculation Not on [...] Description 09/29/2025 9:15 AM EDT Office Visit [facility] [address] [place] [address] 1 year follow up 09/29/2025 9:30 AM EDT Visit (SP) Office Hematology/Oncology [address] [place] [address] Shweta Masters APRN.LIGHTING FIXTURE INSTALLER [address] [place] [address] 1 year follow up documented as of this encounter Visit Diagnoses Not on filedocumented in this encounter Care Teams Equipment Maintenance Engineer Relationship Specialty Start Date End Date Cas Galicia MD PCP - General Family Medicine 02/20/14 Sai Perez MD [address] [place] [address] Primary Staff Physician Cardiology 07/21/21 Rubens Tim DO [address] [place] [address] [place] [address] Referring Steam Hoist Operator 08/05/21 documented as of this encounter
--- OUTSIDE RECORDS SUMMARY | 2024-11-23 11:02 | XMS_ITS | Encounter Summary ---
Author Organization [facility] Address [id number] [address] [place] [address] Care Team Providers Care Playground Director Name Role Phone Cas Galicia MD Primary Care Provider [phone] Encounter Details Date Type Department Care Team (Late st Contact Info) Description 10/23/2022 Orders Only [facility] [address] [place] [phone] External, Scanning Provider Social History Tobacco Use [...] Description 11/24/2024 10:00 AM EDT Office Visit [facility] Adult Endocrinology, A Department of [facility] [address] [address] Akila Ballard MD [address] [address] 12/26/2024 10:30 AM EST Office Visit [facility] Neurology, A Department of [facility] [address] [address] Stella Flowers APRN-GOLF COURSE EQUIPMENT OPERATOR [address] [phone] 01/05/2025 12:30 PM EST Clinical Support [facility] - ENT [address] [place] [address], [address] [place] [phone] Argentina Trivedi CCC-ADULT AND PEDIATRIC NEUROLOGIST [address] [place] [address] [address] [place] [phone] 01/27/2025 4:15 PM EST Office Visit [facility] - [address], [address] [place] [phone] Terri Smith MD [address] [place] [address] [place] [address] documented as of this encounter Visit Diagnoses Not on filedocumented in this encounter Additional Health Concerns Assessment Noted Time PHQ-9 Depression Total Score: 0 06/30/19 1:10 PM EDT documented as of this encounter Care Teams Playground Director Relationship Specialty Start Date End Date Cas Galicia MD PCP - General Family Medicine 11/18/20 documented as of this encounter
--- OUTSIDE RECORDS SUMMARY | 2024-11-23 11:02 | XMS_ITS | Encounter Summary ---
Author Organization [facility] Address [address] [place] [address] Care Team Providers Care Strip Deburrer Name Role Phone Cas Galicia MD Primary Care Provider [phone] Cas Galicia MD Unavailable Encounter Details Date Type Department Care Team (Late st Contact Info) Description 02/21/2024 Orders Only [facility] [address] [place] [address] Cas Galicia MD [address] [place] [address] Social History Tobacco Use Types [...] often do you attend chur ch or spiritism services? Patient declined 04/08/2023 Do you belong to any clubs o r organizations such as synagogue groups, unions, fraternal or athletic groups, or [...] medical care, and heating? Somewhat hard 04/08/2023 [facility] [place] of Occupat ional Health - Occupational Stress [...] fpc (including now)? Patient declined 04/08/2023 Comments No [...] OBGYN [address] [place] [phone] Rubens Tim DO [address] [facility] [place] [address] 07/08/2025 8:20 AM EDT Office Visit [facility] [address] [place] [phone] Jodi Holden, PONCE [address] [facility] [address] [place] [address] documented as of this encounter [...] on filedocumented in this encounter Care Teams Strip Deburrer Relationship Specialty Start Date End Date Cas Galicia MD PCP - General Family Medicine 04/09/23 Cas Galicia MD [address] [place] [address] PCP - [employer] 11/06/23 documented as of this encounter
--- OUTSIDE RECORDS SUMMARY | 2024-11-23 11:02 | XMS_ITS | Encounter Summary ---
Author Organization [facility] [employer] [facility] Address [id number] [address] [place] [address] Care Team Providers Care Box Closing Machine Operator Name Role Phone Cas Galicia MD Primary Care Provider [phone] Encounter Details Date Type Department Care Team (Late st Contact Info) Description 12/24/2020 Orders Only [facility] [address] [place] [phone] External, Scanning Provider Social History Tobacco Use [...] 10:00 AM EDT Office Visit [facility] Adult Endocrinology, A Department of [facility] [address] [phone] Akila Ballard MD [address] [address] 12/26/2024 10:30 AM EST Office Visit [facility] Neurology, A Department of [facility] [address] [phone] Stella Flowers, MARINE ELECTRICIAN-FINANCIAL SERVICES DIRECTOR [address] [phone] 01/05/2025 12:30 PM EST Clinical Support [facility] - ENT [address] [place] [address], [address] [place] [phone] [place] Trivedi, [facility]-SLITTER OPERATOR [address] [place] [phone] 01/27/2025 4:15 PM EST Office Visit [facility] - ENT [address] [place] [address], [address] [place] [phone] Terri Smith MD [address] [place] [address] [place] [address] documented as of this encounter Procedures Procedure [...] LAB BLOOD ORDERABLES Edited Result - Final Performing Organization Address [facility] de Phone Number MANUALLY TRANSCRIBED RESULTS * Multiple labs (11/16/2020) us Scanning Provider External [facility] Final Result Performing Organization Address [facility] de Phone Number MANUALLY TRANSCRIBED RESULTS * Echo complete W/O contrast (11/16/2020) Anatomical Region Laterality Modality Chest N/A Ultrasound us Scanning Provider External CV ECHO ORDERABLES Fi nal Result * ECG 12 lead (11/15/2020) us Scanning Provider External ECG ORDERABLES Final Result Performing Organization Address [facility] de Phone Number MANUALLY TRANSCRIBED RESULTS * ECG 12 lead (11/01/2020) us Scanning Provider External ECG ORDERABLES Final Result Performing Organization Address [facility] de Phone Number MANUALLY TRANSCRIBED RESULTS documented in this encounter Visit Diagnoses Not on filedocumented in this encounter Care Teams Box Closing Machine Operator Relationship Specialty Start Date End Date Cas Galicia MD PCP - General Family Medicine 11/18/20 documented as of this encounter
--- OUTSIDE RECORDS SUMMARY | 2024-11-23 11:02 | XMS_ITS | Encounter Summary ---
Author Organization [facility] Address [address] [place] [address] Care Team Providers Care Food Cooking Machine Operator Name Role Phone Cas Galicia MD Primary Care Provider [phone] Cas Galicia MD Unavailable Encounter Details Date Type Department Care Team (Late st Contact Info) Description 05/15/2024 Abstract [facility] [address] [place] [address] Kassie Coffman LPN Social History Tobacco [...] week 04/08/2023 How often do you attend [facility] or evangelical services? Patient declined 04/08/2023 Do you belong to any clubs o r organizations such as religious groups, unions, fraternal or athletic groups, or [...] medical care, and heating? Somewhat hard 04/08/2023 [facility] of Occupat ional [facility] - Occupational Stress Questionnaire [...] EDT Office Visit [facility] [address] [facility] [place] [phone] Rubens Tim DO [address] [facility] [place] [address] 07/08/2025 8:20 AM EDT Office Visit [facility] [address] [place] [address] Jodi Holden, PONCE [address] [place] [address] documented as of this encounter Visit Diagnoses Not on filedocumented in this encounter Care Teams Food Cooking Machine Operator Relationship Specialty Start Date End Date Cas Galicia MD PCP - General Family Medicine 04/09/23 Cas Galicia MD [address] [place] [address] PCP - [employer] Commercial 11/06/23 documented as of this encounter
--- OUTSIDE RECORDS SUMMARY | 2024-11-23 11:02 | XMS_ITS | Clinical Summary ---
Author Organization [facility] Address [address] [place] [address] Care Team Providers Care Sr. Director Name Role Phone Cas Dowell MD Primary Care Provider [phone] Allergies Active Allergy Reactions Criticality Noted Date [...] Rofecoxib Rash,Unknown Low 09/04/2011 Other reaction(s): Unknown Shellfish Protein-Containing Drug Products Hives,Rash Low 01/08/2022 Dimethicone 07/07/2022 Sulfa [...] or chew. Active Synthroid 100 MCG tablet 3 Active sertraline (Zoloft) 100 MG tablet Take 100 mg by mouth Daily 4 Active Azelastine HCl 137 MCG/SPRAY solution 4 Active EPINEPHrine (Epipen) 0.3 MG/0.3ML injection syringe 4 Active Cymbalta [address] capsule Active famotidine (Pepcid) 20 MG tablet Take by mouth Active DHEA 10 MG capsule Take 5 mg by mouth Active magnesium, as gluconate, (Magonate) 500 (27 Mg) MG tablet Take 27 mg by mouth in the morning and 27 mg before bedtime. Active liothyronine (Cytomel) 5 MCG tablet 5 mcg 4 Active levalbuterol (Xopenex HFA) 45 MCG/ACT inhalerIndicatio ns:Moderate persistent asthma without complication (HCC) Inhale 2 puffs every 4 (four) hours if needed for wheezing or shortness of breath 15 g 3 5 Active levalbuterol (Xopenex Concentrate) 1.25 MG/0.5ML nebulizer solutionIndicati ons:Moderate persistent asthma without complication (HCC) Take 0.5 mL (1.25 mg) by nebulization every 4 (four) hours if needed for wheezing or shortness of breath 60 each 2 5 Active sAXagliptin (Onglyza) 5 MG tabletIndication s:Type 2 diabetes mellitus with hyperglycemia, without long-term current use of insulin (HCC) TAKE 1 TABLET BY MOUTH EVERY DAY 90 tablet 3 5 Active zonisamide (Zonegran) 100 MG capsule TAKE 2 CAPSULES (200 MG TOTAL) BY MOUTH IN THE MORNING. 5 Active Ubrogepant (Ubrelvy) 100 MG tablet Take by mouth Active hydrocortisone 2.5 % creamIndications :Other specified dermatitis Apply topically 2 (two) times a day as needed (Rash) Apply thin layer to affected areas bid prn for flares 30 g 3 5 Active triamcinolone (Kenalog) 0.1 % creamIndications :Other specified dermatitis Apply to affected areas, up to twice a day when flared, do not use one the face, groin, or underarms, 30 day supply 80 g 11 5 Active baclofen (Lioresal) 20 MG tablet Take 1 tablet (20 mg) by mouth in the morning and 1 tablet (20 mg) in the evening and 1 tablet (20 mg) before bedtime. 5 Active furosemide (Lasix) 20 MG tabletIndication s:Edema of both legs Take 1 tablet (20 mg) by mouth Daily as needed (Edema) 30 tablet 3 5 Active cholecalciferol (Vitamin D-3) 125 MCG (5000 UT) capsuleIndicatio ns:Vitamin D deficiency TAKE 1 CAPSULE (125 MCG) BY MOUTH DAILY 30 capsule 3 5 Active Active Problems Problem Noted Date Diagnosed [...] treatment. Reactions getting worse and refer to real estate operations manager. 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 Assessment & Plan (02/11/2024 10:35 [...] (01/12/2023): Added automatically from request for surgery [id number] Adenovirus infection 01/10/2022 023 RSV (respiratory syncytial [...] External Data 09/29/2024 Results Follow-Up [facility] [address] [place] [address] Cas Dowell MD XR elbow 1 or 2 views right 09/29/2024 Clinisync Result Encounter [facility] External Department Unsolicited Cas Dowell MD 09/29/2024 Clinisync Result Encounter [facility] External Department Unsolicited Cas Dowell MD 09/29/2024 Clinisync Result Encounter [facility] External Department Unsolicited Cas Dowell MD 09/29/2024 Orders Only [facility] [address] [place] [address] Cas Dowell MD 09/25/2024 3:45 PM EDT Office Visit [facility] [address] [facility] [place] [address] Cas Dowell MD Chronic rhinosinusitis (Primary Dx); Right wrist pain; Right forearm pain 09/25/2024 Abstract [facility] [address] [place] [phone] Cas Dowell MD 09/25/2024 Bamboo flowsheet [facility] [address] [place] [phone] Cas Dowell MD 09/16/2024 Refill [facility] [address] [place] [address] Cas Dowell MD Vitamin D deficiency from Last 3 Months Immunizations Immunization Administration Dates Next Due Influenza, [id number] 11/20/2019 Influenza, Unspecified 11/20/2019,11/06/2019 Influenza, injectable, quadrivalent, [...] declined 08/08/2024 How often do you attend [facility] or mormonism services? Patient declined 08/08/2024 Do you belong [...] medical care, and heating? Somewhat hard 08/08/2024 [facility] [place] of Occupat ional Health - Occupational Stress [...] a long-term (including now)? Patient declined 04/08/2023 Housing Stability [...] any time in the past 12 m [facility], were you homeless or living in a long-term (including now)? No 08/08/2024 Comments No Sex [...] EDT Office Visit [facility] [address] [place] [address] Rubens Tim DO [address] [facility] [place] [address] 07/08/2025 8:20 AM EDT Office Visit [facility] [address] [place] [phone] Jodi Holden, PA [address] [facility] [address] [place] [address] Procedures Procedure Name Priority Date/Time Associated Diagnosis [...] 1-2 VIEWS RIGHT 09/29/2024 1:43 PM EDT from Last 3 Months Results * (ABNORMAL) [facility] CBC W AUTO [...] EDT Specimen Type: BLOOD SPECIMEN Ordering Facility: [facility] Address: [address] [place] [address] Original Ordering Provider: FUENTES AMARAL us Generic External Data Provider CLINISYCOLIN F inal Result [facility] [address] [place] [address] * (ABNORMAL) [facility] COMP METAB 2000 PNL [...] 74 - 99 mg/dL [facility] Comment: The [place] Diabetes Association (ADA) provides guidance for cutoff [...] Standards of Medical Care in Diabetes 2016, [place] Diabetes Association. Diabetes Care. 2016.39(Suppl 1). [facility] [...] 8:42 AM EDT 09/30/2024 8:42 AM EDT [place] - 09/30/2024 9:10 AM EDT Specimen Type: BLOOD SPECIMEN Ordering Facility: [facility] Address: [address] [place] [address] Original Ordering Provider: FUENTES AMARAL us Generic External Data Provider JAYA alfaro Result [facility] [address] [place] [address] * XR forearm 2 views right (09/29/2024 2:01 PM EDT) Only the most recent of2 resultswithin the time period is included. Anatomical Region Laterality Modality Upper Extremities, Forearm Right Radio graphic Imaging Cas Dowell MD IMG XR PROCEDURES Final Result * XR WRIST 2 VIEWS RIGHT (09/29/2024 2:00 PM EDT) Anatomical Region Laterality Modality Radiographic Naina ging Cas Dowell MD IMG XR PROCEDURES Final Result * XR elbow 3+ views right (09/29/2024 1:59 PM EDT) Anatomical Region Laterality Modality Upper Extremities, Elbow Right Radiogr aphic Imaging Cas Dowell MD IMG XR PROCEDURES Final Result * XR elbow 1 or 2 views right (09/29/2024 1:44 PM EDT) Anatomical Region Laterality Modality Upper Extremities, Elbow Right Radiogr aphic Imaging 09/29/2024 1:44 PM EDT Narrative 09/29/2024 1:46 PM EDT [address] [address] XRay Report Signed Patient: VIJAYA TRAN MR#: [id number] : 1985 Acct:[id number] Age/Sex: 38 / F ADM Date: 09/29/24 Loc: LAB Attending Dr: Cas Dowell M.D. Ordering Physician: Cas Dowell M.D. Date of Service: 09/29/24 Procedure(s): XR elbow RT 2V Accession Number(s): [id number] cc: Cas Dowell M.D. [address] [address] Patient Name: VIJAYA TRAN MRN: [id number] date: 1985 Sex: F Assigned Patient Location: LAB Current Patient Location: LAB Accession/Order Number: [id number] Exam Date: 09/29/2024 13:00 Report Date: 09/29/2024 [...] Jr., D.O. 09/29/2024 1:44 PM Dictation Location: [place] [address] Electronically authenticated by: [id number] Y Date: 09/29/2024 13:44 Dictated By: Michael Price M.D. Signed By: 09/29/24 1346 DD/ 1344 TD/TT: Airport Utility Worker: Procedure Note Radiology, Radiologist, MD - 09/29/2024 [place] [address] XRay Report Signed Patient: VIJAYA TRAN SMR#: [id number] : 1985Acct:[id number] Age/Sex: 38 / FADM Date: 09/29/24 Loc: LAB Attending Dr: Cas Dowell M.D. Ordering Physician: Cas Dowell M.D. Date of Service: 09/29/24 Procedure(s): XR elbow RT 2V Accession Number(s): [id number] cc: Cas Dowell M.D. [place] [id number] Patient Name: VIJAYA TRAN MRN: [id number] date: 1985 Sex: F Assigned Patient Location: LAB Current Patient Location: LAB Accession/Order Number: [id number] Exam Date: 09/29/2024 13:00 Report Date: 09/29/2024 [...] Jr., D.O. 09/29/2024 1:44 PM Dictation Location: [place] [address] Electronically authenticated by: [id number] Y Date: 3:44 Dictated By: Michael Price M.D. Signed By:09/29/24 1346 DD/ 134 TD/TT: Airport Utility Worker: Cas Dowell MD IMG XR PROCEDURES Final Result * XR wrist 1 or 2 views right (09/29/2024 1:43 PM EDT) Anatomical Region Laterality Modality Upper Extremities, Wrist Right Radiogr aphic Imaging 09/29/2024 1:43 PM EDT Narrative 09/29/2024 1:45 [place] [address] XRay Report Signed Patient: VIJAYA TARN MR#: [id number] : 1985 Acct:[id number] Age/Sex: 38 / F ADM Date: 09/29/24 Loc: LAB Attending Dr: Cas Dowell M.D. Ordering Physician: Cas Dowell M.D. Date of Service: 09/29/24 Procedure(s): XR wrist RT 2V Accession Number(s): [id number] cc: Cas Dowell M.D. [place] [id number] Patient Name: VIJAYA TRAN MRN: [id number] date: 1985 Sex: F Assigned Patient Location: LAB Current Patient Location: LAB Accession/Order Number: [id number] Exam Date: 09/29/2024 13:00 Report Date: 09/29/2024 [...] PM Dictation Location: [facility]-23 Electronically authenticated by: [id number] Y Date: 09/29/2024 13:43 Dictated By: [place] Price M.D. Signed By: 09/29/245 DD/ 42 TD/TT: Airport Utility Worker: Procedure Note Radiology, Radiologist, MD - 09/29/2024 [place] [address] XRay Report Signed Patient: VIJAYA TRAN SMR#: [id number] : 1985Acct:[id number] Age/Sex: 38 / FADM Date: 09/29/24 Loc: LAB Attending Dr: Cas Dowell M.D. Ordering Physician: Cas Dowell M.D. Date of Service: 09/29/24 Procedure(s): XR wrist RT 2V Accession Number(s): [id number] cc: Cas Dowell M.D. The [place] [id number] Patient Name: VIJAYA TRAN MRN: [id number] date: 1985 Sex: F Assigned Patient Location: LAB Current Patient Location: LAB Accession/Order Number: [id number] Exam Date: 09/29/2024 13:00 Report Date: 09/29/2024 [...] PM Dictation Location: [facility]-23 Electronically authenticated by: [id number] Y Date: 3:43 Dictated By: Michael Price M.D. Signed By:09/29/24 1345 DD/ 1343 TD/TT: Airport Utility Worker: Cas Dowell MD IMG XR PROCEDURES Final Result from Last 3 Months Insurance [facility] Care Teams Sr. Director Relationship Specialty Start Date End Date Cas Dowell MD PCP - General Family Medicine 04/09/23
--- OUTSIDE RECORDS SUMMARY | 2024-11-23 11:02 | XMS_ITS | Encounter Summary ---
Author Organization [facility] Address [address] [place] [address] Care Team Providers Care Chief Underwriter Name Role Phone Cas Galicia MD Primary Care Provider [phone] Sai Perez MD Unavailable [phone] Rubens Tim DO Unavailable [phone] Source Comments In the event this information is protected by the Federal Confidentiality of Alcohol and Drug AbusePatient Records regulations: The Federal rules restrict any use of the information to criminally investigate or prosecute any alcohol or drug abuse patient.[facility] Encounter Details Date Type Department Care Team (Late st Contact Info) Description 12/26/2021 Patient Msg Neurology [address] [place] [address] Provider, Ccf Sleep Study Confirmation [...] N ot on file 08/15/2021 Data from: https://www.neighborhoodatlas.medicine.[facility]/. Last address used for calculation [...] Description 09/29/2025 9:15 AM EDT Office Visit [facility] [address] [place] [address] [place] [address] 1 year follow up 09/29/2025 9:30 AM EDT Visit (SP) Office Hematology/Oncology [address] [place] [address] Shweta Masters APRN.[address] [place] [address] 1 year follow up documented as of this encounter Visit Diagnoses Not on filedocumented in this encounter Care Teams Chief Underwriter Relationship Specialty Start Date End Date Cas Galicia MD PCP - General Family Medicine 02/20/14 Sai Perez MD [address] [place] [address] Primary Staff Physician Cardiology 07/21/21 Rubens Tim DO [address] [place] [address] [place] [address] Referring Boat Tester 08/05/21 documented as of this encounter
--- OUTSIDE RECORDS SUMMARY | 2024-11-23 11:02 | XMS_ITS | Encounter Summary ---
Author Organization [facility] Address [address] [place] [address] Care Team Providers Care Special Education Superintendent Name Role Phone Cas Galicia MD Primary Care Provider [phone] Encounter Details Date Type Department Care Team (Late st Contact Info) Description 09/25/2024 Abstract [facility] [address] [place] [address] Cas Galicia MD [address] [place] [address] Social History Tobacco Use Types Packs/Day Years [...] How often do you attend chur or samaritan services? Patient declined 08/08/2024 Do you belong [...] hard 08/08/2024 [facility] - Occupational Stress [...] a half-way (including now)? Patient declined 04/08/2023 Housing Stability [...] any time in the past 12 m [facility], were you homeless or living in a half-way (including now)? No 08/08/2024 Comments No Sex [...] EDT Office Visit [facility] [address] [facility] [place] [address] Rubens Tim DO [address] [facility] [address]ie [place], [place] [id number] 07/08/2025 8:20 AM EDT Office Visit [facility] [address] [facility] [place] [address] Jodi Holden, PA [address] [place] [address] documented as of this encounter Visit Diagnoses Not on filedocumented in this encounter Care Teams Special Education Superintendent Relationship Specialty Start Date End Date Cas Galicia MD PCP - General Family Medicine 04/09/23 documented as of this encounter
--- OUTSIDE RECORDS SUMMARY | 2024-11-23 11:02 | XMS_ITS | Encounter Summary ---
Author Organization [facility] Address [address] [place] [address] Care Team Providers Care Potato Chip Frier Name Role Phone Cas Galicia MD Primary Care Provider [phone] Sai Perez MD Unavailable [phone] Rubens Tim DO Unavailable [phone] Source Comments In the event this information is protected by the Federal Confidentiality of Alcohol and Drug AbusePatient Records regulations: The Federal rules restrict any use of the information to criminally investigate or prosecute any alcohol or drug abuse patient.[facility] Encounter Details Date Type Department Care Team (Late st Contact Info) Description 02/14/2022 Patient Msg Neurology [address] [place] [address] Provider, Ccf Appointment Cancellation Social [...] N ot on file 02/17/2022 Data from: https://www.neighborhoodatlas.medicine.[facility]/. Last address used for calculation [address] [...] Description 09/29/2025 9:15 AM EDT Office Visit [facility] [address] [place] [address] [place] [address] 1 year follow up 09/29/2025 9:30 AM EDT Visit (SP) Office Hematology/Oncology [address] [facility] [address] Shweta Masters APRN.[address] [place] [address] 1 year follow up documented as of this encounter Visit Diagnoses Not on filedocumented in this encounter Care Teams Potato Chip Frier Relationship Specialty Start Date End Date Cas Galicia MD PCP - General Family Medicine 02/20/14 Sai Perez MD [address] [place] [address] Primary Staff Physician Cardiology 07/21/21 Rubens Tim DO [address] [place] [address] [place] [address] Referring Otr Van Cdl Truck Driver 08/05/21 documented as of this encounter
--- OUTSIDE RECORDS SUMMARY | 2024-11-23 11:03 | XMS_ITS | Encounter Summary ---
Author Organization [facility] Address [address] [place] [address] Care Team Providers Care Painting Contractor Name Role Phone Cas Galicia MD Primary Care Provider [phone] Sai Perez MD Unavailable [phone] Rubens Tim DO Unavailable [phone] Source Comments In the event this information is protected by the Federal Confidentiality of Alcohol and Drug AbusePatient Records regulations: The Federal rules restrict any use of the information to criminally investigate or prosecute any alcohol or drug abuse patient.[facility] Encounter Details Date Type Department Care Team (Late st Contact Info) Description 06/29/2021 Patient Msg Neurology [address] [place] [address] Peter Knight APRN.MATERIAL HANDLER 1ST SHIFT NO FORWARDING ADDRESS MRI and CT result [...] ot on file 07/01/2021 Data from: https://www.neighborhoodatlas.medicine.[facility]/. Last address used for calculation [...] Office Visit [facility] [address] [facility] [place] [address] 1 year follow up 09/29/2025 9:30 AM EDT Visit (SP) Office Hematology/Oncology [address] [facility] [place] [address] Shweta Masters APRN.MATERIAL HANDLER 1ST SHIFT [address] [facility] [place] [address] 1 year follow up documented as of this encounter Visit Diagnoses Not on filedocumented in this encounter Care Teams Painting Contractor Relationship Specialty Start Date End Date Cas Galicia MD PCP - General Family Medicine 02/20/14 Sai Perez MD [address] [facility] [address] Primary Staff Physician Cardiology 07/21/21 Rubens Tim DO [address] [place] [address] [place] [address] Referring Circular Tank Cooper 08/05/21 documented as of this encounter
--- OUTSIDE RECORDS SUMMARY | 2024-11-23 11:03 | XMS_ITS | Encounter Summary ---
Author Organization [facility] Address [address] [place] [address] Care Team Providers Care Off Premise Service Representative Name Role Phone Cas Galicia MD Primary Care Provider [phone] Encounter Details Date Type Department Care Team (Late st Contact Info) Description 09/29/2024 [facility] [address] [place] [address] Cas Galicia MD [address] [facility] [place] [address] XR elbow 1 or 2 views right [...] declined 08/08/2024 How often do you attend [facility] or christian services? Patient declined 08/08/2024 Do you belong to any clubs o r organizations such as adventism groups, unions, fraBattlepro or athletic groups, or school groups? No [...] medical care, and heating? Somewhat hard 08/08/2024 [facility] - Occupational Stress Questionnaire Answer [...] any time in the past 12 m [facility], were you homeless or living in [...] EDT Office Visit [facility] [address] [facility] [place] [address] Rubens Tim DO [address] [facility] [address] [place]ie [place], [place] [address] 07/08/2025 8:20 AM EDT Office Visit [facility] [address] [facility] [place] [address] Jodi Holden, PA [address] [place] [address] documented as of this encounter Visit Diagnoses Not on filedocumented in this encounter Care Teams Off Premise Service Representative Relationship Specialty Start Date End Date Cas Galicia MD PCP - General Family Medicine 04/09/23 documented as of this encounter
--- OUTSIDE RECORDS SUMMARY | 2024-11-23 11:03 | XMS_ITS | Encounter Summary ---
Author Organization [facility] Address [address] [place] [address] Care Team Providers Care Vet Assistant Name Role Phone Cas Galicia MD Primary Care Provider [phone] Sai Perez MD Unavailable [phone] Rubens Tim DO Unavailable [phone] Source Comments In the event this [...] [facility] [address] [address] Provider, [facility]cf Wellness Referral Social [...] N ot on file 08/15/2021 Data from: https://www.neighborhoodatlas.medicine.[facility]/. Last address used for [...] Description 09/29/2025 9:15 AM EDT Office Visit [facility] [address] [place] [address] [place] [address] 1 year follow up 09/29/2025 9:30 AM EDT Visit (SP) Office Hematology/Oncology [address] [place] [address] [place] [address] Shweta Masters APRN.[address] [place] [address] 1 year follow up documented as of this encounter Visit Diagnoses Not on filedocumented in this encounter Care Teams Vet Assistant Relationship Specialty Start Date End Date Cas Galicia MD PCP - General Family Medicine 02/20/14 Sai Perez MD [address] [facility] [place] [address] Primary Staff Physician Cardiology 07/21/21 Rubens Tim DO [address] [place] [address] [place] [address] Referring Instructional Consultant 08/05/21 documented as of this encounter
--- OUTSIDE RECORDS SUMMARY | 2024-11-23 11:03 | XMS_ITS | Clinical Summary ---
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 03/02/2021 Cervicalgia 03/02/2021 01/01/2023 Brain fog [...] Encounters Date Type Department Care Team Description 10/27/2024 11:20 AM EDT Ancillary Procedure [facility] [address] [place] [address] Awareness of heartbeats 10/26/2024 Orders Only [facility] [address] [place] [address] Halima Morris MD 09/25/2024 11:10 AM EDT Ancillary Procedure [facility] Clinic [address] [place] [address] Awareness of heartbeats 09/24/2024 Orders Only [facility] Clinic [address] [place] [address] Halima Morris MD 08/25/2024 11:55 AM EDT Ancillary Procedure [facility] Clinic [address] [place] [address] Awareness of heartbeats 08/25/2024 Orders Only [facility] Clinic [address] [place] [address] Jorge Montana MD from Last 3 Months Family History [...] Grandmother Shelbie mother Diabetes type II Sister Catherine Hypertension Sister Catherine Fainting Son 1 POTS Son 1 Asthma Son 2 Relation Name Status Comments Father Jd(biological father) Maternal Grandfather Armando Alive Maternal Grandmother Linda Alive Mother Maira Mother's Sister 1 Mother's Sister 2 Katie Alive Mother's Sister 3 Katharina Alive Mother's Sister 4 Katie Alive Mother's Sister 5 Katharina Alive Paternal Grandmother Shelbie mother Alive Sister Catherine Son 1 Alive Son 2 Alive Son [...] exercise at this level? 30 min 07/21/2022 [place] Safety [place] Answer Date Rec orded [...] 03/17/2016 03/17/2013 Diabetes: Hemoglobin A1C 04/03/2023 01/01/2023 Mammogram 2023 COVID-19 Vaccine ( - 2023-2 5 season) 2024 Influenza Vaccine (#1) 2024 0, 11/06/2019, 10/27/2019 Depression Screening 08/12/2025 08/12/2024 Zoster [...] this topic Medical Devices Implanted Type Area Loan Closer Device Identifier Shelf Expiration Date Model / Serial / Lot Monitor,Cardiac,B iomonitor Iii - [id number] - [id number] Implanted:Qty: 1 on 06/27/2022 by Stephon Cronin MD at [facility] Lead [employer] 10/06/2023 [id number] / [id number] / Procedures Procedure Name Priority Date/Time Associated Diagnosis Comments CARDIAC DEVICE CHECK CHECK - REMOTE Routine 10/30/2024 10:15 AM EDT Awareness of heartbeats CARDIAC DEVICE CHECK - REMOTE - LOOP RECORDER (ILR) Routine 10/26/2024 12:00 AM EDT CARDIAC DEVICE CHECK CHECK - REMOTE Routine 09/26/2024 10:33 AM EDT Awareness of heartbeats CARDIAC DEVICE CHECK - REMOTE - LOOP RECORDER (ILR) Routine 09/24/2024 12:00 AM EDT CARDIAC DEVICE CHECK CHECK - REMOTE Routine 08/27/2024 1:03 PM EDT Awareness of heartbeats CARDIAC DEVICE CHECK - REMOTE - LOOP RECORDER (ILR) Routine 08/25/2024 12:00 AM EDT from Last 3 Months Results * CARDIAC DEVICE CHECK - REMOTE - LOOP RECORDER (ILR) (10/30/2024 10:15 AM EDT) Only the most recent of3 resultswithin the time period is included. us Jorge Montana MD CV IMPLANTABLE CARDIAC DEVICE [place] OCEDURES Final Result CPACS * Cardiac device check - Remote loop recorder (ILR) (10/26/2024 12:00 AM EDT) Only the most recent of3 resultswithin the time period is included. Anatomical Region Laterality Modality Other 10/26/2024 us Halima Morris MD CV IMPLANTABLE CARDIAC DEVICE PROCEDURES Final Result from Last 3 Months Insurance [facility] Care Teams Bread Packer Relationship Specialty Start Date End Date Cas Galicia MD [address] [place] [address] PCP - General 02/17/22
--- OUTSIDE RECORDS SUMMARY | 2024-11-23 11:03 | XMS_ITS | Encounter Summary ---
Author Organization [facility] Address [address] [place] [address] Care Team Providers Care Victim Advocate Name Role Phone Cas Galicia MD Primary Care Provider [phone] Cas Galicia MD Primary Care Provider [phone] Cas Galicia MD Unavailable Cas Galicia MD Unavailable Encounter Details Date Type Department Care Team (Late st Contact Info) Description 07/06/2022 Abstract [facility] [address] [place] [phone] Jodi Holden PA [address] [facility] [address] [place] [address] Social History Tobacco Use Types [...] Visit [facility] [address] [facility] [place] [phone] Rubens Tim DO [address] [place] [address] 07/08/2025 8:20 AM EDT Office Visit [facility] [address] [place] [address] Jodi Holden, PA [address] [place] [address] documented as of this encounter Visit Diagnoses Not on filedocumented in this encounter Care Teams Victim Advocate Relationship Specialty Start Date End Date Cas Galicia MD PCP - General Family Medicine 12/06/22 04/08/23 Cas Galicia MD PCP - General Family Medicine 04/09/23 Cas Galicia MD [address] [place] [address] PCP - [place] [employer] 06/06/23 Cas Galicia MD [address] [place] [address] PCP - [place] [employer] 11/06/23 documented as of this encounter
--- OUTSIDE RECORDS SUMMARY | 2024-11-23 11:03 | XMS_ITS | Clinical Summary ---
Author Organization [facility] Address [id number] [address] [place] [address] Care Team Providers Care Crossing Gateman Name Role Phone Cas Galicia MD Primary Care Provider [phone] Allergies Active Allergy Reactions Criticality Noted Date [...] Active EPINEPHrine (EPIPEN) 0.3 mg/0.3 mL auto-injector 06/06/19 Active pantoprazole (PROTONIX) 40 mg EC tablet Take by mouth in the morning. Active albuterol (PROVENTIL HFA;VENTOLIN HFA) 90 mcg/actuation inhaler as needed. 01/12/20 22 Active ondansetron ODT (ZOFRAN ODT) 4 mg disintegrating tablet 01/19/20 22 Active diphenhydrAMINE (BENADRYL) 25 mg [...] for pain. 20 tablet 05/07/19 25 Active Additional Information Patient not taking.Reported on 10/28/2024 sAXagliptin (ONGLYZA) 5 mg tablet Take 1 [...] in the evening. 180 capsule 1 09/16/19 Active potassium chloride (K-TAB,KLOR-CON) 10 MEQ CR tablet Take 1 tablet (10 mEq total) by mouth in the morning. 10/01/19 25 Active Active Problems Problem Noted Date Diagnosed Date Anxiety 03/02/2021 COVID-19 dottie bashir manifes ting chronic neurologic symptoms 03/02/2021 COVID-19 dottie hauler manifesting chronic fatigue 03/02/2021 Memory difficulties 03/02/2021 [...] Encounters Date Type Department Care Team Description 11/07/2024 Orders Only [facility] - ENT [address] [place] [address], [address] [place] [address] Ref Prov, Not In System 10/28/2024 8:15 AM EDT Office Visit [facility] [address] [place] [address], [address] [place] [address] Terri Smith MD Chronic sinusitis (Primary Dx); Vocal cord dysfunction; Geographic tongue; Hypertrophy of both inferior nasal turbinates; Tympanosclerosis, bilateral; Severe persistent asthma without complication (CMS-HCC) 10/28/2024 Travel 09/22/2024 Refill [facility], A Department of [facility] [address] [place] [address] [address] [place] [address] Alina Garcia CMA 09/15/2024 Refill [facility], [facility] Department of [facility] [address] [place] [address] [address] [place] [address] Stella Flowers, CERTIFIED ADAPTIVE PHYSICAL EDUCATOR-MACY Migraine without aura and without status migrainosus, [...] Kidney disease Mother Maira Mental illness Mother Maiar Stroke Mother Maira Diabetes Sister 1 Hypertension [...] Pulse 79 01/02/2024 10:07 AM EST Temperature 36.6 C (97.9 F) 10/28/2024 8:18 AM EDT Respiratory Rate 16 05/18/2021 10:24 AM EDT Oxygen Saturation 98% 05/18/2021 10:24 AM EDT Inhaled Oxygen Concentration - - Weight 104 kg (229 lb 3.2 oz) 10/28/2024 8:18 AM EDT Height 162.6 cm (5' 4.02 ) 10/28/2024 8:18 AM ED T Body Mass Index 39.32 10/28/2024 8:18 AM EDT Plan of Treatment Upcoming Encounters Date Type Department Care Team (Late st Contact Info) Description 11/24/2024 10:00 AM EDT Office Visit [facility]ology, A Department of [facility] [address] [address] Akila Ballard MD [address] [address] 12/26/2024 10:30 AM EST Office Visit [facility] Department of [facility] [address] [address] Stella Flowers, CERTIFIED ADAPTIVE PHYSICAL EDUCATOR-PATENT COUNSEL [address] [address] 01/05/2025 12:30 PM EST Clinical [facility] - ENT [address] [facility] [place] [address] [place] Trivedi, [facility] FLOOR PAN PLACING SUPERVISOR [address] [facility] [address] [place] [address] 01/27/2025 4:15 PM EST Office Visit [facility] - ENT [address] [facility] [place] [address] Terri Smith MD [address] [facility] [address] [place] [address] Health Maintenance Due Date Last Done Comments Adult BMI Follow Up Plan 12/20/2001 DTaP,Tdap and Td Vaccines (1 - Tdap) 12/20/2002 Depression Screening 01/05/2024 01/04/2023 Influenza Vaccine 10/06/2024 11/20/2019, , 10/27/2019 Adult BMI Screening 10/28/2025 10/28/2024 Tobacco Screening 10/29/2025 10/29/2024 Pap Smear Discontinued 03/17/2013 Medical Devices Not on file Procedures Procedure Name Priority Date/Time Associated Diagnosis Comments CT SINUSES WO CONT Routine 10/31/2024 10:22 AM EDT from Last 3 Months Results * CT sinuses without contrast (10/31/2024 10:22 AM EDT) Anatomical Region Laterality Modality Neuro, Face, Neuro Covera N/A Comput ed Tomography us Not In System Ref Prov IMG CT ORDERABLES Final R esult from Last 3 Months Insurance KAYLA ANTHEM Care Teams Crossing Gateman Relationship Specialty Start Date End Date Cas Galicia MD PCP - General Family Medicine 11/18/20
--- OUTSIDE RECORDS SUMMARY | 2024-11-23 11:03 | XMS_ITS | Clinical Summary ---
Author Organization [facility] Address [address] [place] [address] Phone Care Team Providers Care Jumbo Operator Name Role Phone Cas Galicia MD Primary Care Provider + Social History Tobacco Use Types Packs/Day Years Used Date Smoking Tobacco: Never Assessed Comments Unknown Sex and Gender Information Value Date Recorded Sex Assigned at Not on file Legal Sex Female 4:23 PM EST Gender Identity Not on file Sexual Orientation Not on file Plan of Treatment Not on file Care Teams Jumbo Operator Relationship Specialty Start Date End Date Cas Galicia MD PCP - General 05/11/15
--- OUTSIDE RECORDS SUMMARY | 2024-11-23 11:03 | XMS_ITS | Encounter Summary ---
Author Organization [facility] Address [address] [place] [address] Care Team Providers Care Engineer Systems Name Role Phone Cas Galicia MD Primary Care Provider [phone] Sai Perez MD Unavailable Rubens Tim DO Unavailable Source Comments In the event this information is protected by the Federal Confidentiality of Alcohol and Drug AbusePatient Records regulations: The Federal rules restrict any use of the information to criminally investigate or prosecute any alcohol or drug abuse patient.[facility] Encounter Details Date Type Department Care Team (Late st Contact Info) Description 10/17/2021 Get Medical Advice Pulmonary Medicine [address] [id number] TimoteoLanden APRN.[facility] [address] [place] [address] Symptoms Social History Tobacco Use Types [...] Data from: https://www.neighborhoodatlas.medicine.[facility]/. Last address used for calculation [address] [...] Description 09/29/2025 9:15 AM EDT Office [facility] [address] [place] [address] 1 year follow up 09/29/2025 9:30 AM EDT Visit (SP) Office Hematology/Oncology [address] [facility] [place] [address] Shweta Masters APRN.CLINICAL ACCOUNT EXECUTIVE [address] [place] [address] 1 year follow up documented as of this encounter Visit Diagnoses Diagnosis Hot flashes- Primary Symptomatic menopausal or female climacteric states Post-acute sequelae of COVID-19 (PASC) Flushing Chills (without fever) Dusky discoloration of skin Temperature intolerance Other general symptoms documented in this encounter Care Teams Engineer Systems Relationship Specialty Start Date End Date Cas Galicia MD PCP - General Family Medicine 02/20/14 Sai Perez MD [address] [place] [address] Primary Staff Physician Cardiology 07/21/21 Rubens Tim DO [address] [place] [address] [place] [address] Referring Screed Person 08/05/21 documented as of this encounter
--- OUTSIDE RECORDS SUMMARY | 2024-11-23 11:03 | XMS_ITS | Encounter Summary ---
Author Organization [facility] tem Address [id number] [address] [place] [address] Care Team Providers Care Wing Coverer Name Role Phone Cas Galicia MD Primary Care Provider [phone] Reason for Visit * Reason Onset Date Comments Med Refill 03/12/2024 Encounter Details Date Type Department Care Team (Late st Contact Info) Description 03/12/2024 Refill [facility] [address] [place] [phone] Alina Garcia CMA Social History Tobacco Use [...] Description 11/24/2024 10:00 AM EDT Office Visit [facility] Adult Endocrinology, A Department of [facility] [address] [address] Akila Ballard MD [address] [address] 12/26/2024 10:30 AM EST Office Visit [facility] Neurology, A Department of [facility] [address] [address] Stella Flowers, PACKAGING SUPERVISOR-MUSHROOM LABORER [address] [address] 01/05/2025 12:30 PM EST Clinical Support [facility] - [address] [place] [phone] [place] Trivedi [facility]-BID ANALYST [address] [place] [address] [address] [place] [phone] 01/27/2025 4:15 PM EST Office Visit [facility] - ENT [address] [place] [address], [address] [place] [phone] [place] [address] [place] [address] [place] [address] documented as of this encounter Visit Diagnoses Not on filedocumented in this encounter Additional Health Concerns Assessment Noted Time PHQ-9 Depression Total Score: 0 01/05/20 23 3:26 PM EST documented as of this encounter Care Teams Wing Coverer Relationship Specialty Start Date End Date Cas Galicia MD PCP - General Family Medicine 11/18/20 documented as of this encounter
--- OUTSIDE RECORDS SUMMARY | 2024-11-23 11:03 | XMS_ITS | Encounter Summary ---
Author Organization [facility] Address [address] [place] [address] Care Team Providers Care Dog Warden Name Role Phone Cas Galicia MD Primary Care Provider [phone] Cas Galicia MD Primary Care Provider [phone] Cas Galicia MD Unavailable Cas Galicia MD Unavailable Reason for Visit * Reason Comments Med Refill Encounter Details Date Type Department Care Team (Late st Contact Info) Description 03/22/2023 Refill [facility] [address] [place] [address] Cas Galicia MD [address] [place] [phone] Mild persistent asthma, uncomplicated (HCC); Asthma (HCC) [...] 10:40 AM EDT Office Visit [facility] PERALTA [address] [place] [address] [place] [address] Rubens Tim, [address] [place], [place] [id number] 07/08/2025 8:20 AM EDT Office Visit [facility] [address] [place] [address] Jodi Holden, PA [address] [place] [address] documented as of this encounter Visit Diagnoses Diagnosis Mild persistent asthma, uncomplicated (HCC) Asthma (HCC) Unspecified asthma documented in this encounter Care Teams Dog Warden Relationship Specialty Start Date End Date Cas Galicia MD PCP - General Family Medicine 12/06/22 04/08/23 Cas Galicia MD PCP - General Family Medicine 04/09/23 Cas Galicia MD [address] [place] [address] PCP - [employer] 06/06/23 Cas Galicia MD [address] [place] [address] PCP - [employer] 11/06/23 documented as of this encounter
--- OUTSIDE RECORDS SUMMARY | 2024-11-23 11:03 | XMS_ITS | Encounter Summary ---
Author Organization [facility] tem Address [id number] [address] [place] [place] [address] Care Team Providers Care Audit Clerk Name Role Phone Cas Galicia MD Primary Care Provider [phone] Encounter Details Date Type Department Care Team (Late st Contact Info) Description 11/07/2024 Orders Only [facility] - ENT [address] [place] [phone] Ref Prov, [place] [address] Social History Tobacco Use Types Packs/Day Years [...] Description 11/24/2024 10:00 AM EDT Office Visit [facility] Adult Endocrinology, A Department of [facility] [address] [phone] Akila Ballard MD [address] [address] 12/26/2024 10:30 AM EST Office Visit [facility] Neurology, A Department of [facility] [address] [address] Stella Flowers, DIRECTOR CRITICAL CARE-[employer] [address] [address] 01/05/2025 12:30 PM EST Clinical Support [facility] - ENT [address] [place] [address], [address] [place] [phone] [place] Trivedi [facility]FREELANCE TRANSLATOR [address] [place] [address] [address] [place] [phone] 01/27/2025 4:15 PM EST Office Visit [facility] - ENT [address] [place] [address], [address] [place] [address] [place] [address] [place] [address] [place] [address] documented as of this encounter Procedures Procedure Name Priority Date/Time Associated Diagnosis Comments CT SINUSES WO CONT Routine 10/31/2024 10:22 AM EDT documented in this encounter Results * CT sinuses without contrast (10/31/2024 10:22 AM EDT) Anatomical Region Laterality Modality Neuro, Face, Neuro Covera N/A Comput ed Tomography us Not In System Ref Prov IMG CT ORDERABLES Final R esult documented in this encounter Visit Diagnoses Not on filedocumented in this encounter Additional Health Concerns Assessment Noted Time PHQ-9 Depression Total Score: 0 01/05/20 23 3:26 PM EST documented as of this encounter Care Teams Audit Clerk Relationship Specialty Start Date End Date Cas Galicia MD PCP - General Family Medicine 11/18/20 documented as of this encounter
--- OUTSIDE RECORDS SUMMARY | 2024-11-23 11:03 | XMS_ITS | CCD ---
Author Organization [facility] Inform ion Partnership [facility] Care Team Providers Care Septic Cleaner Name Role Phone Cas Dowell MD Primary [...] Care Provider Cas Dowell Primary Care Provider Aan PEREZ, Sai Unavailable Rubens Tim DO Unavailable Cas Dowell Primary Care Provider Rubens Tim DO Unavailable Cas Dowell Primary Care Provider CAS DOWELL Primary Care Physician CAS DOWELL Primary Care Unavailbenito e Cas Dowell Primary Care Provider Ana PEREZ, Sai Unavailable Rubens Tim DO Unavailable Cas Dowell MD Primary Care Provider Glenroy MADRIGAL, Rubens R Unavailable MUNIR, FUENTES Referring Unavailable [...] CAS Guzman Attending Unavailable NADERER, DR CAS Gzuman Admitting Unavailable ZIEBER, DR HUSAM [place] Consulting [...] Unavailable NADERER, DR CAS Guzman Admitting Unavailable ARBELA, DR BELÉN Hatfield Consulting Unavailable NADERER, DR [...] Care Provider Cas Dowell Primary Care Provider Rui Tim DOy R Unavailable Cas Dowell MD Primary Care Provider [phone] Cas Dowell MD Primary Care Provider Cas Dowell MD Unavailable SARAH BEST Attending Unavailable NADERESilvia, CAS Referring Unavailable NADERESilvia, CAS Primary Care Unavailable MARNI FLOWERS Attending Unavailable NADERESilvia, CAS Referring Unavailable NADERESilvia, CAS Primary Care Unavailable AKILA YAO Attending Unavailable NADRAJ, CAS Referring Unavailable NADERESilvia, CAS Primary Care Unavailable MARNI FLOWERS Attending Unavailable NADERESilvia, CAS Referring Unavailable NADRAJ, ACS Primary Care Unavailable Cas Dowell MD Unavailable AKILA YAO Referring Unavailable NADERESilvia, CAS Primary Care Unavailable Cas Dowell MD Primary Care Provider Cas Dowell MD Primary Care Provider [phone] Cas Dowell MD Primary Care Provider [phone] Cas Dowell MD Primary Care Provider IVORY ORDAZ Referring Unavailable NADERESilvia, CAS WAN Primary Care UnavailNABOR Burnette Referring Unavailable NADERESilvia, CAS WAN Primary Care UnavailMACRINA Hernandez Referring Unavailable NADERER, CAS WAN Primary Care UnavailCas Cantor MD Primary Care Provider tanvirOliva fall APRN Attending Provider Oliva Becerra Attending Unavail able Oliva Becerra Admitting Unavail able Naderesilvia, Cas Primary Care Unavailable NADERESilvia, CAS Attending Unavailable JODI MAZARIEGOS Attending Unavailable NADERER, CAS Attending Unavailable NADERER, CAS Attending Unavailable NADERER, CAS Attending Unavailable RAMBASECHRISTY Peña Attending Unavailable NADERER, CAS Referring Unavailable RUBENS TIM Attending Unavailable NADERESilvia, CAS Attending Unavailable Cas Dowell MD Primary Care Provider FUENTES AMARAL Referring Unavailable NADERER, CAS Guzman Primary Care Unavailable MARGOT LIMON Attending Unavailable ABHYANKAR, FUENTES Referring Unavailable NADERER, CAS Guzman Primary Care Unavailable Дмитрий, Selma Benavides Attending Unavailable Дмитрий, Selma Benavides Attending Unavailable MARNI FLOWERS Attending Unavailable NADERER, CAS Referring Unavailable NADERER, CAS Primary Care Unavailable TERRI HAN Attending Unavailable NADERER, CAS Referring Unavailable NADERER, CAS Primary Care Unavailable MACRINA WADSWORTH Attending Unavailable VIPUL, ABIEL Referring Unavailable VIPUL, ABIEL Referring Unavailable VIPUL, ABIEL Referring Unavailable VIPUL, ABIEL Referring Unavailable VIPUL, ABIEL Referring Unavailable VIPUL, ABIEL Referring Unavailable VIPUL, ABIEL Referring Unavailable VIPUL, ABIEL Referring Unavailable VIPUL, ABIEL Referring Unavailable ABEL, STEPHON Referring Unavailable VIPUL, ABIEL Referring Unavailable VIPUL, ABIEL Referring Unavailable VIPUL, ABIEL Referring Unavailable ABEL, STEPHON Referring Unavailable William PEREZ, Phillip Guerra Attending Unavailable Grayson PEREZ, Cas Wan Primary Care Unavail able Grayson PEREZ, Cas Wan Primary Care Unavail able William PEREZ, Phillip Guerra Attending Unavailable William PEREZ, Phillpi Guerra Attending Unavailable Grayson PEREZ, Cas Wan Primary Care Unavail laura Thomas MD, Phillip Guerra Attending Unavailable Cas Dowell MD Primary Care Unavail able Allergies Allergy Classification Reported Allergen(s) Allergy Type Date of Onset Reaction(s) Facility Aluminum aspirin (1 source) Aluminum aspirin Drug Allergy 09-04-19 12 Rash [facility] Cephalosporins (antibiotic) (2 sources) Cefaclor Drug Allergy 09-04-19 12 Shortness Of Breath, Rash [facility] Phone: drospirenone / Ethinyl Estradiol (1 source) drospirenone / Ethinyl Estradiol Drug Allergy 09-04-19 12 [facility] Phone: Ethinyl Estradiol / Norethindrone (1 source) Ethinyl Estradiol / Norethindrone Drug Allergy 09-04-19 12 [facility] Phone: Latex (1 source) Latex Substance Allergy 09-04-19 12 Swelling, Rash [facility] Phone: Macrolides (antibiotic) (1 source) Erythromycin Drug Allergy 09-04-19 12 Shortness Of Breath [facility] Phone: NSAIDs (1 source) Ibuprofen Drug Allergy 09-04-19 12 [facility] Phone: Penicillins (antibiotic) (1 source) Penicillins Drug Allergy 09-04-19 12 [facility] Phone: rofecoxib (1 source) rofecoxib Drug Allergy 09-04-19 12 [facility] Phone: Sulfonamides (antibiotic) (1 source) Sulfonamides (Antibiotic) Drug Allergy 03-21-19 16 [facility] Unclassified (11 sources) Clindamycin/Lincomy juan Propensity to adverse reactions to drug 09-04-19 12 Rash [facility] Work Phone: Unclassified (20 sources) Iodides; Translations: [IODIDES] Propensity to adverse reactions to drug 09-04-19 12 Unknown, Anaphylaxis [facility] Phone: Unclassified (20 sources) Lavender Oil Propensity to adverse reactions to drug 06-14-19 21 Anaphylaxis [facility] (20 sources) Aluminum aspirin; Translations: [ASPIRIN] Drug Allergy 09-04-19 12 Rash, Angioedema, Unknown [facility] (20 sources) Cefaclor; Translations: [cefaclor] Drug Allergy 09-04-19 12 Shortness Of Breath, Anaphylaxis, Swelling, Unknown (qualifier value), Dyspnea (finding) [facility] Phone: (20 sources) Cefuroxime; Translations: [CEFUROXIME AXETIL] Drug Allergy 09-04-19 12 Rash, Unknown, Shortness of Breath [facility] Phone: (20 sources) drospirenone / Ethinyl Estradiol; Translations: [DROSPIRENONE-ETHIN YL ESTRADIOL] Drug Allergy 09-04-19 12 Unknown, Other: See Comments [facility] Phone: (20 sources) Erythromycin; Translations: [ERYTHROMYCIN] Drug Allergy 09-04-19 12 Shortness Of Breath, Swelling, Unknown [facility] Phone: (20 sources) Ethinyl Estradiol / Norethindrone Drug Allergy 09-04-19 12 [facility] Phone: (20 sources) Ibuprofen; Translations: [ibuprofen] Drug Allergy 09-04-19 12 Unknown (qualifier value), Rash, Unknown, Dyspnea (finding) [facility] (20 sources) Latex; Translations: [LATEX] Propensity to adverse reactions to drug 09-04-19 12 Swelling, Rash, Itching, Unknown, Eruption of skin (disorder) [facility] Phone: Comment on above: and swelling (15 sources) Penicillins; Translations: [PENICILLINS] Propensity to adverse reactions to drug 09-04-19 12 Rash, Itching [facility] Phone: (20 sources) rofecoxib Drug Allergy 09-04-19 12 Unknown, Rash [facility] Phone: (6 sources) Sulfonamides (Antibiotic) Propensity to adverse reactions to drug 03-21-19 16 [facility] (20 sources) Aspirin; Translations: [aspirin] Drug Allergy 09-04-19 12 Unknown, Angioedema, Unknown (qualifier value), Weal (disorder), Rash [facility] (20 sources) Clindamycin; Translations: [clindamycin] Drug Allergy 02-23-19 15 Swelling, Shortness of Breath, Rash, Unknown (qualifier value), Eruption of skin (disorder) [facility] Comment on above: sob, rash (20 sources) Contrast media; Translations: [CONTRAST DYE] Drug Allergy 09-04-19 12 Anaphylaxis [facility] (20 sources) Naproxen; Translations: [NAPROXEN] Drug Allergy 09-07-19 21 Swelling, Angioedema [facility] (19 sources) Penicillins Propensity to adverse reactions to drug 02-23-19 15 Rash, Itching [facility] (20 sources) Sulfonamides (Antibiotic); Translations: [SULFA (SULFONAMIDE ANTIBIOTICS)] Drug Allergy 03-21-19 16 Swelling, Shortness of Breath [facility] (20 sources) Lavender (Lavandula Angustifolia); Translations: [LAVENDER (LAVANDULA ANGUSTIFOLIA)] Drug Allergy 06-14-19 21 Anaphylaxis [facility] (7 sources) Eucalyptus oil Drug Allergy 10-24-19 21 [facility] (20 sources) gatifloxacin; Translations: [GATIFLOXACIN] Drug Allergy 12-22-19 15 Diarrhea [facility] Work Phone: (20 sources) Norethindrone-Ethin Estradiol; Translations: [NORETHINDRONE-ETHI N ESTRADIOL] Propensity to adverse reactions to drug 09-04-19 12 Unknown [facility] (20 sources) Eucalyptus extract; Translations: [EUCALYPTUS] Drug Allergy 10-24-19 21 Anaphylaxis [facility] (20 sources) levoFLOXacin; Translations: [LEVOFLOXACIN] Drug Allergy 11-12-19 21 Rash [facility] (20 sources) metroNIDAZOLE; Translations: [METRONIDAZOLE] Drug Allergy 03-02-19 22 Unknown [facility] (20 sources) Sulfamethoxazole / Trimethoprim; Translations: [SULFAMETHOXAZOLE-T RIMETHOPRIM] Drug Allergy 01-24-20 14 Unknown, Other (See Comments) [facility] (20 sources) Fish; Translations: [FISH CONTAINING PRODUCTS] Drug Allergy 07-26-19 22 [facility] Work Phone: (20 sources) Shellfish; Translations: [SHELLFISH DERIVED] Drug Allergy 07-26-19 22 [facility] Work Phone: (20 sources) Penicillins Propensity to adverse reactions to drug 09-04-19 12 Rash, Itching [facility] (20 sources) Penicillin G; Translations: [PENICILLIN G BENZATHINE] Drug Allergy 08-19-19 22 Unknown [facility] Work Phone: (8 sources) Iodine; Translations: [iodine] Drug Allergy 05-25-19 23 Unknown (qualifier value) [facility] (8 sources) Macrolides (Antibiotic); Translations: [macrolide antibiotics] Drug allergy 09-04-19 12 Allergy - specialty (qualifier value) [facility] (8 sources) Penicillin; Translations: [penicillin] Drug Allergy Unknown (qualifier value), Dyspnea (finding) [facility] (8 sources) Sulfonamides (Antibiotic); Translations: [sulfa drugs] Drug allergy Allergy - specialty (qualifier value) [facility] (20 sources) valACYclovir; Translations: [valacyclovir] Drug Allergy 10-06-19 22 Anaphylaxis (disorder), Shortness Of Breath, Anaphylaxis [facility] (20 sources) Povidone-Iodine; Translations: [povidone iodine topical] Drug Allergy 05-25-19 23 Eruption of skin (disorder), Rash [facility] (20 sources) Seafood Propensity to adverse reactions to drug 01-09-20 22 Hives, Rash [facility] Work Phone: (20 sources) rofecoxib; Translations: [ROFECOXIB] Drug Allergy 09-04-19 12 Rash, Unknown [facility] (6 sources) IODINATED CONTRAST MEDIA; Translations: [IODINATED CONTRAST MEDIA] Propensity to adverse reactions to drug (disorder) 02-23-19 15 [facility] (1 source) Aspirin Drug Allergy 03-12-19 15 [facility] (3 sources) Cefaclor; Translations: [Ceclor] Drug Allergy 03-12-19 15 [facility] (2 sources) Cefuroxime; Translations: [Ceftin] Drug Allergy 03-12-19 15 [facility] (1 source) Clindamycin Drug Allergy 03-12-19 15 [facility] (3 sources) Erythromycin Drug Allergy 03-12-19 15 Difficulty Breathing [facility] (1 source) Eucalyptus extract Drug Allergy 10-24-19 21 [facility] (1 source) gatifloxacin Drug Allergy 12-22-19 15 [facility] (2 sources) Ibuprofen; Translations: [Motrin] Drug Allergy [facility] (1 source) Iodine (And Iodine Containting Drugs) Drug allergy (disorder) 03-12-19 15 [facility] (1 source) Latex Drug allergy (disorder) 03-12-19 15 [facility] (1 source) levoFLOXacin Drug Allergy 11-12-19 21 [facility] (1 source) Naproxen Drug Allergy 08-07-19 21 [facility] (1 source) Penicillins Drug allergy (disorder) 03-12-19 15 [facility] (1 source) rofecoxib Drug Allergy 03-12-19 15 [facility] (1 source) Sulfamethoxazole / Trimethoprim Drug Allergy 02-23-19 21 [facility] (1 source) Sulfonamides (Antibiotic) Drug allergy (disorder) 03-12-19 15 [facility] (1 source) valACYclovir Drug Allergy [facility] (20 sources) buPROPion; Translations: [BUPROPION] Drug Allergy 06-22-19 23 Other (See Comments), Other: See Comments [facility] (20 sources) Cefuroxime Drug Allergy 07-08-19 23 [facility] (20 sources) dimethicone; Translations: [DIMETHICONE] Drug Allergy 07-08-19 23 [facility] (20 sources) Fish - dietary Allergy to substance 07-26-19 22 Hives [facility] (20 sources) Gatifloxacin Allergy to substance 12-22-19 15 Diarrhea [facility] (20 sources) Latex Allergy to substance 09-04-19 12 Itching, Rash, Swelling, Unknown [facility] (20 sources) Menthol; Translations: [MENTHOL] Drug Allergy 02-27-19 23 Hives [facility] (20 sources) Penicillins Drug Intolerance 09-04-19 12 Itching, Rash [facility] (20 sources) zolpidem; Translations: [ZOLPIDEM] Drug Allergy 05-25-19 23 Unknown, Other (See Comments) [facility] Comment on above: muscle spasms and je rking (20 sources) Galcanezumab-Gnlm Propensity to adverse reactions 07-08-19 23 [facility] (20 sources) Norethindrone-Eth Estradiol Drug Intolerance 09-04-19 12 [facility] (20 sources) Benzathine penicillin - chemical Allergy to substance 08-22-19 24 [facility] (20 sources) Sulfamethoxazole; Translations: [SULFAMETHOXAZOLE] Allergy to substance 08-19-19 Difficulty Breathing [facility] Comment on above: triggers asthma (4 sources) Ibuprofen; Translations: [IBUPROFEN] Drug Allergy 09-04-19 12 [facility] (4 sources) natural latex rubber; Translations: [LATEX, NATURAL RUBBER] Propensity to adverse reactions to drug (disorder) 09-04-19 12 [facility] (20 sources) GLOVES, LATEX WITH ALOE VERA; Translations: [GLOVES, LATEX WITH ALOE VERA] Propensity to adverse reactions to drug (disorder) 08-19-19 [facility] (4 sources) NORETHINDRONE AC-ETH ESTRADIOL; Translations: [NORETHINDRONE AC-ETH ESTRADIOL] Propensity to adverse reactions to drug (disorder) 09-04-19 12 [facility] (20 sources) Topiramate Propensity to adverse reactions 02-10-19 25 Confusion [facility] (20 sources) Sulfamethoxazole Drug Allergy 08-19-19 22 [facility] (5 sources) Penicillins Propensity to adverse reactions to drug 09-04-19 12 Itching, Rash [facility] (2 sources) Trimethoprim Drug Allergy 09-09-19 25 Difficulty Breathing [facility] Comment on above: triggers asthma (1 source) CT dye and contrast; Translations: [CT dye and contrast] Propensity to adverse reactions (disorder) [facility] Repository Medications Current Medications Medication Drug [...] every four hours as needed for headache jpdzygzfxz-rbsufbjtprpgw-pakshpxb (FIORICET) 50-325-40 MG per tablet Take 1 [...] mg by sub cutaneous injection every month Guilhermeovsilvio Autoinjector 225 mg, SubCutaneous, qMonth, Refills(s) 0 [...] inhaler (20 sources) Corticosteroid, beta2-Adrenergic Agonist Start: take 2 puff(s) by inhalation twice daily [...] procedure., # 2 tab(s), Refills(s) 0, Pharmacy: [facility]/pharmacy #[id number], 162, cm, 12/21/21 8:50:00 EST, Height/Length [...] Start: 01-04-2023 take 1 capsule by mo [facility] once daily Cymbalta 60 mg Cap-DR 60 mg, Oral, Daily, Refills(s) 0 Start Date: 01/04/23 Status: Ordered 12 hr dextromethorphan hydrobromide 30 mg / guaiFENesin 600 mg extended release oral tablet (1 source) Uncompetitive F-mwbjwx-N-aspartate Receptor Antagonist, Sigma-1 Agonist take 30-600 mg [...] Comment on above: TAKE [address] [facility] TWICE A DAY FOR 10 DAYS DULoxetine 60 mg delayed release oral capsule (20 sources) Serotonin and Norepinephrine Reuptake Inhibitor Start: take 1 capsule by mouth once daily DULoxetine (CYMBALTA) 60 mg capsule Take 1 capsule (60 mg total) by mouth nightly. 12/26/2022 Active Start: 01-28-2022 take 1 capsule by mo [facility] once daily DULoxetine (CYMBALTA) 30 mg capsule TAKE 1 CAPSULE BY MOUTH EVERY DAY DO NOT CRUSH OR CHEW 01/28/2022 Active Start: 2021 Cymbalta Oral, Refills(s) 0 Start Date: 12/21/21 Status: Ordered take 2 capsules by [facility] once daily DULoxetine (CYMBALTA) 30 MG extended release capsule Take 2 capsules by mouth daily Active Comment on above: TAKE [address] [facility] EVERY DAY DO NOT CRUSH OR CHEW [id number] 0.3 ml EPINEPHrine 1 mg/ml auto-injector (20 [...] (FLONASE) 50 mcg/actuation nasal spray Use 1 Marshall in each nostril twice daily. 3 Each [...] nostril Active Comment on above: Use 1 Marshall in each nostril twice daily. 1 spray [...] mg/ml topical cream (13 sources) Corticosteroid Start: 025 hydrocortisone 2.5 % cream Indications: Other specified dermatitis Apply topically 2 (two) times a day as needed (Rash) Apply thin layer to affected areas bid prn for flares 30 g 3 07/08/2024 Active ketorolac tromethamine 10 mg oral tablet (8 sources) Nonsteroidal Anti-inflammatory Drug, Cyclooxygenase Inhibitor Start: 025 take 1 tablet by mouth every six [...] (20 sources) Mood Stabilizer, Anti-epileptic Agent Start: take 1 tablet by mouth at bedtime [...] in NaCl (PF) 0.9% 10 mL injection (DEFINVPEP) (20 sources) Start: 07-22-19 End: 10-21-19 23 [...] Start: 07-21-2022 take 3 tablets by mo [facility] twice daily pyridostigmine (MESTINON) 60 mg tablet [...] stone, # 30 tab(s), Refills(s) 1, Pharmacy: [facility]/pharmacy #[id number], 162, cm, 09/05/22 8:28:00 EDT, Height/Length [...] Drug Class(es) Dates Sig (Normalized) Sig (Original) [id number] 200 actuat albuterol 0.09 mg/actuat metered dose [...] mg/mL injection 0.3 mg 168 hr estradiol 0.26265 mg/hr transdermal system (4 sources) Estrogen Start: [...] THE SKIN ONCE PER WEEK estrogens, conjugated (prison) 0.625 mg oral tablet (3 sources) Estrogen [...] BID, # 60 tab(s), Refills(s) 3, Pharmacy: [facility]/pharmacy #[id number], 162, cm, 01/04/23 9:06:00 EST, Height/Length [...] hyperglycemia, without long-term current use of insulin ([facility]) 0.25 mg SC weekly x 4 weeks, then 0.5 mg weekly 1 each 3 10/10/2023 11/07/2023 Discontinued (Therapy completed) SITagliptin 100 mg oral tablet (20 sources) Dipeptidyl Peptidase 4 Inhibitor Start: 11-23-2020 End: 12-05-2024 take 1 tablet by mouth once daily SITagliptin (Januvia) 100 MG tablet Indications: Type 2 diabetes mellitus with hyperglycemia, without long-term current use of insulin ([facility]) Take 1 tablet (100 mg) by mouth [...] 11/01/2020 Discontinued (Therapy completed) 60 actuat tiotropium 0.33460 mg/actuat inhalation spray (20 sources) Anticholinergic Start: 12-24-19 End: 09-09-19 25 Tiotropium [place] (Spiriva Respimat) 1.25 mcg/actuation mist Discontinued INHALATION December 24, 2023 1:00am September 08, 2024 11:48am Start: 11-07-2023 End: 11-06-2024 tiotropium (Spiriva Respimat ) 1.25 MCG/ACT inhaler Indications: Severe persistent asthma with (acute) exacerbation ([facility]) Inhale 2 puffs Daily 1 each 11 [...] [POTS (postural orthostatic tachycardia syndrome)] 10-01-2023 Chronic Cardiac dysrhythmias (20 sources) Bradycardia; Translations: [Bradycardia, unspecified] Onset: 1 05-24-2021 Episodic Coagulation and hemorrhagic disorders (20 [...] Other assisted (current) drug therapy; Translations: [OTH TRACK MANAGER CURRENT DRUG THERAPY] Onset: 3 Episodic [...] (BMI) of 37.0 to 37.9 in adult ([facility])] Onset: 5 02-11-2024 Chronic Other skin disorders [...] tendon of lower back, initial encounter] Episodic Syncope (20 sources) Near syncope; Translations: [Syncope and collapse] Onset: 3 Resolved: 3 Episodic Systemic lupus erythematosus and connective tissue [...] unspecified] Onset: 2 Unclassified (2 sources) 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; Translations: [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] Onset: 2 Unclassified (3 sources) Chronic rhinosinusitis; Translations: [chronic rhinosinusitis] Onset: 5 09-25-2024 Unclassified (1 source) Qualitative platelet disorder Onset: Past or Other Problems Problem Classification Problem [...] 05-24-2021 05-24-2021 Episodic Coagulation and hemorrhagic disorders (20 [...] Translations: [Neck pain] Onset: 03-02-2021 01-12-2023 Episodic Unclassified (1 source) LOW BACK PAIN, UNSPECIFIED; Translations: [LOW BACK PAIN, UNSPECIFIED] Onset: 02-15-2022 Viral infection (20 sources) Disease caused by 2019-nCoV; Translations: [COVID-19] Onset: 12-24-2020 Resolved: 08-11-2024 Episodic Results Test Name Value Interpretation Reference Range Facility Orders Onlyon 10-26-2024 Orders Only [id number] Megan Tran 1985 F Date Provider Department [place] 10/26/[address] [place], [place] [address]KENYA Gramajo [facility] Family History Problem Relation [...] Mother's Sister Alive Mother's Sister Alive Normal [facility] Ambulatory Visit Summaryon 0 10-09-2024 Ambulatory Visit [...] 10:20 AM EDT With: CHELO Choe APRN, Selma Benavides Where: [facility] [address] [address]- Medications What How Much When Why Instructions [...] signed up for this yet, please contact Health Information Track (more content not included)... Normal [facility] Reminderson 10-09-2024 Reminders Reminders From: CHELO Choe APRN, [place] X To: CARLA Choe; Sent: 10/09/2024 13:09:01 EDT Show up: 08/08/2025 13:08:00 EDT Subject: Reminder Message Reminder Message CT AP wo con for 1 yr f/u AML, kidney stones order placed today, pt prefers [facility] Normal [facility] Urology Office/Clinic Noteon 10-09-2024 Urology Office/Clinic Note Urology Office/Clinic Note Chief Complaint pt here for a 1 year follow up HPI Staff Pt is a 38 year old female here for a 1 year follow up Dx: kidney stone, angiomyolipoma, gross hematuria, urethral stricture. *Has Flomax for stone passage GORDON done 08/21/23 at [facility]. BBSQ: 16 Pt denies pain/burning denies visible blood denies flank pain today but did have some on Sunday with bladder pressure PVR: 29 mL History of Present Illness I have reviewed and verified the staff HPI to be accurate for this encounter. Portions of this record may have been created with voice recognition artificial intelligence software, specifically [employer], [employer] and or [place] [employer]. Substitutions may have occurred due to the [...] angiomyolipoma. Discussed image - slightly larger that 202 measurement, but not significantly increasing in size. [...] 1 yr w/ CT -tamsulosin PRN Ordered: [id number] Measure Post Void residual urine and/or bladder capacity by US- non-imaging CT Abdomen/Pelvis w/o Contrast Urnls Dip Stick Auto w/o Microscopy POC [id number] 3. Unspecified urethral stricture, female (N35.92: Unspecified urethral stricture, female) s/p cysto/UD 01/23/22 Denies worsening of urinary stream, but does worry she is not emptying completely -cont to monitor 4. Feeling of incomplete bladder emptying (R39.14: Feeling of incomplete bladder emptying) PVR today 29 ml discussed w/ pt, emptying well at this time -cont to monitor Follow-up With When Contact Information Orzech [employer], DISK OPERATOR-C, Selma X, FAM, URL Additional Instructions: [address] Patient Education Lipoma Kidney Stones, Vvqt-jw-Rrxw Problem List/Past Medical History Ongoing Abnormal urine [...] ablation, Insertio (more content not included)... Normal [facility] Comment on above: Result Comment: Elec tronically Signed By: CHELO Choe APRN, Selma Benavides\.br\Date and Time Signed: 10/09/24 13:08 EDT CBC W Auto Differential pane l (Bld)on 09-30-2024 Basophils (Bld) [#/Vol] 0.06 10*3/uL Normal <0.11 [facility] Comment on above: Order Comment: Speci men Type: BLOOD SPECIMEN Ordering Facility: [facility] Address: [address] [place] [address] Performed By: #### 5 7021-8 #### [facility] CLIA [id number] [address] [place] [address] 25572 Basophils/100 WBC (Bld) 0.6 % Normal [facility] Comment on above: Order Comment: Speci men Type: BLOOD SPECIMEN Ordering Facility: [facility] Address: [address] [place] [address] Performed By: #### 5 7021-8 #### [facility] CLIA [id number] [address] [place] [address] 35416 Differential cell count method Nom (Bld) Auto Normal [facility] Comment on above: Order Comment: Speci men Type: BLOOD SPECIMEN Ordering Facility: [facility] Address: [address] [place] [address] Performed By: #### 5 7021-8 #### [facility] CLIA [id number] [address] [place] [address] 56633 Eosinophils (Bld) [#/Vol] 0.09 10*3/uL Normal <0.46 [facility] Comment on above: Order Comment: Speci men Type: BLOOD SPECIMEN Ordering Facility: [facility] Address: [address] [place] [address] Performed By: #### 5 7021-8 #### [facility] CLIA [id number] [address] [place] [address] 98511 Eosinophils/100 WBC (Bld) 0.9 % Normal [facility] Comment on above: Order Comment: Speci men Type: BLOOD SPECIMEN Ordering Facility: [facility] Address: [address] [place] [address] Performed By: #### 5 7021-8 #### [facility] CLIA [id number] [address] [place] [address] 87228 Erythrocyte distribution width (RBC) [Ratio] 11.9 % Normal 11.5-15.0 [facility] Comment on above: Order Comment: Speci men Type: BLOOD SPECIMEN Ordering Facility: [facility] Address: [address] [place] [address] Performed By: #### 5 7021-8 #### [facility] CLIA [id number] [address] [place] [address] 32168 Hematocrit (Bld) [Volume fraction] 41.8 % Normal 36.0-46.0 [facility] Comment on above: Order Comment: Speci men Type: BLOOD SPECIMEN Ordering Facility: [facility] Address: [address] [place] [address] Performed By: #### 5 7021-8 #### [facility] CLIA [id number] [address] [place] [address] 71866 Hemoglobin (Bld) [Mass/Vol] 14.1 g/dL Normal 11.5-15.5 [facility] Comment on above: Order Comment: Speci men Type: BLOOD SPECIMEN Ordering Facility: [facility] Address: [facility] [place] [place] [address] Performed By: #### 5 7021-8 #### [facility] CLIA [id number] [address] [place] [address] 97863 Immature granulocytes (Bld) [#/Vol] 0.11 10*3/uL High <0.10 [facility] Comment on above: Order Comment: Speci men Type: BLOOD SPECIMEN Ordering Facility: [facility] Address: [address] [place] [address] Performed By: #### 5 7021-8 #### [facility] CLIA [id number] [address] [place] [address] 99401 Immature granulocytes/100 WBC (Bld) 1.1 % Normal [facility] Comment on above: Order Comment: Speci men Type: BLOOD SPECIMEN Ordering Facility: [facility] Address: [address] [place] [address] Performed By: #### 5 7021-8 #### [facility] CLIA [id number] [address] [place] [address] 99039 Lymphocytes (Bld) [#/Vol] 2.18 10*3/uL Normal 1.00-4.00 [facility] Comment on above: Order Comment: Speci men Type: BLOOD SPECIMEN Ordering Facility: [facility] Address: [address] [place] [address] Performed By: #### 5 7021-8 #### [facility] CLIA [id number] [address] [place] [address] 52481 Lymphocytes/100 WBC (Bld) 22.2 % Normal [facility] Comment on above: Order Comment: Speci men Type: BLOOD SPECIMEN Ordering Facility: [facility] Address: [address] [place] [address] Performed By: #### 5 7021-8 #### [facility] CLIA [id number] [address] [place] [address] MCH (RBC) [Entitic mass] 29.7 pg Normal 26.0-34.0 [facility] Comment on above: Order Comment: Speci men Type: BLOOD SPECIMEN Ordering Facility: [facility] Address: [address] [place] [address] Performed By: #### 5 7021-8 #### [facility] CLIA [id number] [address] [place] [address] 26758 MCHC (RBC) [Mass/Vol] 33.7 g/dL Normal 30.5-36.0 [facility] Comment on above: Order Comment: Speci men Type: BLOOD SPECIMEN Ordering Facility: [facility] Address: [address] [place] [address] Performed By: #### 5 7021-8 #### [facility] CLIA [id number] [address] [place] [address] 99308 MCV (RBC) [Entitic vol] 88.0 fL Normal 80.0-100.0 [facility] Comment on above: Order Comment: Speci men Type: BLOOD SPECIMEN Ordering Facility: [facility] Address: [address] [place] [address] Performed By: #### 5 7021-8 #### [facility] CLIA [id number] [address] [place] [address] 66116 Monocytes (Bld) [#/Vol] 0.34 10*3/uL Normal <0.87 [facility] Comment on above: Order Comment: Speci men Type: BLOOD SPECIMEN Ordering Facility: [facility] Address: [address] [place] [address]242 Performed By: #### 5 7021-8 #### [facility] CLIA [id number] [address] [place] [address] 27381 Monocytes/100 WBC (Bld) 3.5 % Normal [facility] Comment on above: Order Comment: Speci men Type: BLOOD SPECIMEN Ordering Facility: [facility] Address: [address] [place] [address] Performed By: #### 5 7021-8 #### [facility] CLIA [id number] [address] [place] [address] 42206 Neutrophils (Bld) [#/Vol] 7.06 10*3/uL Normal 1.45-7.50 [facility] Comment on above: Order Comment: Speci men Type: BLOOD SPECIMEN Ordering Facility: [facility] Address: [address] [place] [address] Performed By: #### 5 7021-8 #### [facility] CLIA [id number] [address] [place] [address] 49754 Neutrophils/100 WBC (Bld) 71.7 % Normal [facility] Comment on above: Order Comment: Speci men Type: BLOOD SPECIMEN Ordering Facility: [facility] Address: [address] [place] [address] Performed By: #### 5 7021-8 #### [facility] CLIA [id number] [address] [place] [address] 51010 Nucleated RBC (Bld) [#/Vol] 10*3/uL Normal <0.01 [facility] Comment on above: Order Comment: Speci men Type: BLOOD SPECIMEN Ordering Facility: [facility] Address: [address] [place] [address] Performed By: #### 5 7021-8 #### [facility] CLIA [id number] [address] [place] [address] 22571 Nucleated RBC/100 WBC (Bld) [Ratio] 0.0 /100 WBC Normal [facility] Comment on above: Order Comment: Speci men Type: BLOOD SPECIMEN Ordering Facility: [facility] Address: [address] [place] [address] Performed By: #### 5 7021-8 #### [facility] CLIA [id number] [address] [place] [address] 03123 Platelet mean volume (Bld) [Entitic vol] 9.8 fL Normal 9.0-12.7 [facility] Comment on above: Order Comment: Speci men Type: BLOOD SPECIMEN Ordering Facility: [facility] Address: [address] [place] [address] Performed By: #### 5 7021-8 #### [facility] CLIA [id number] [address] [place] [address] 84194 Platelets (Bld) [#/Vol] 254 10*3/uL Normal 150-400 [facility] Comment on above: Order Comment: Speci men Type: BLOOD SPECIMEN Ordering Facility: [facility] Address: [address] [place] [address] Performed By: #### 5 7021-8 #### [facility] CLIA [id number] [address] [place] [address] 79511 RBC (Bld) [#/Vol] 4.75 10*6/uL Normal 3.90-5.20 [facility] Comment on above: Order Comment: Speci men Type: BLOOD SPECIMEN Ordering Facility: [facility] Address: [address] [place] [address] Performed By: #### 5 7021-8 #### [facility] CLIA [id number] [address] [place] [address] 12426 WBC (Bld) [#/Vol] 9.84 10*3/uL Normal 3.70-11.00 [facility] Comment on above: Order Comment: Speci men Type: BLOOD SPECIMEN Ordering Facility: [facility] Address: [address] [place] [address] Performed By: #### 5 7021-8 #### [facility] CLIA [id number] [address] [place] [address] 37022 [facility] CBC W AUTO DIFF BLDon Basophils/100 WBC (Bld) 0.6 % [facility] BASOPHILS # BLD AUTO 0.06 [facility] DIFFERENTIAL METHOD BLD Auto [facility] EOSINOPHIL # BLD AUTO 0.09 [facility] LYMPHOCYTES # BLD AUTO 2.18 [facility] MONOCYTES # BLD AUTO 0.34 [facility] NEUTROPHILS # BLD AUTO 7.06 [facility] NRBC # BLD AUTO <0.01 [facility] NRBC/100 WBC BLD-RTO 0 /100 WBC [facility] PLATELET # BLD AUTO 254 [facility] PMV BLD AUTO 9.8 fL 9.0 - 12.7 fL [facility] WBC # BLD AUTO 9.84 [facility] Eosinophils/100 WBC (Bld) 0.9 % [facility] Erythrocyte distribution width (RBC) [Ratio] 11.9 % 11.5 - 15.0 % [facility] Hematocrit (Bld) [Volume fraction] 41.8 % 36.0 - 46.0 % [facility] Hemoglobin (Bld) [Mass/Vol] 14.1 g/dL 11.5 - 15.5 g/dL [facility] IMM GRANULOCYTES # BLD AUTO 0.11 High [facility] IMM GRANULOCYTES/LEUK NFR BLD AUTO 1.1 % [facility] Interpretation and review of laboratory results Abnormal [facility] Lymphocytes/100 WBC (Bld) 22.2 % [facility] MCH (RBC) [Entitic mass] 29.7 pg 26.0 - 34.0 pg [facility] MCHC (RBC) [Mass/Vol] 33.7 g/dL 30.5 - 36.0 g/dL [facility] MCV (RBC) [Entitic vol] 88 fL 80.0 - 100.0 fL [facility] Monocytes/100 WBC (Bld) 3.5 % [facility] Neutrophils/100 WBC (Bld) 71.7 % [facility] RBC (Bld) [#/Vol] 4.75 10*6/uL 3.90 - 5.20 m/uL [facility] Specimen Type: BLOOD SPECIMEN Ordering Facility: [facility] Address: [address] [place] [address] Original Ordering Provider: [place] [facility] Govind 09-30-2024 CNOVSP Visit (SP) Office (H EMASA) LEANA TRAN ([id number]) 1985 F Date Time Provider Department 09/30/24 9:30 AM MARGOT LIMON During your visit today, we recorded the following information about you: Temperature Pulse Respiration Blood pressure 97.5 degrees 70/minute 16/minute 129/80 Weight Height 104.3 kg 1.626 m Margot Limon APRN.JAVA MOBILE DEVELOPER 09/30/2024 10:24 AM Signed NAME: Leana Tran CLINIC NO.: [id number] DATE OF SERVICE: September 30, 2024 (Sonam) [...] that th (more content not included)... Normal [facility] Comprehensive metabolic 2000 panelon 09-30-2024 Albumin [Mass/Vol] 4.5 g/dL Normal 3.9-4.[address] [facility] Comment on above: Order Comment: Speci men Type: BLOOD SPECIMEN Ordering Facility: [facility] Address: [address] [place] [address] Performed By: #### 2 4323-8 #### [facility] CLIA [id number] [address] [place] [address] 00157 ALP [Catalytic activity/Vol] 74 U/L Normal 34-123 [facility] Comment on above: Order Comment: Speci men Type: BLOOD SPECIMEN Ordering Facility: [facility] Address: [address] [place] [address] Performed By: #### 2 4322-8 #### [facility] CLIA [id number] [address] [place] [address] 73242 ALT [Catalytic activity/Vol] 15 U/L Normal 7-38 [facility] Comment on above: Order Comment: Speci men Type: BLOOD SPECIMEN Ordering Facility: [facility] Address: [address] [place] [address] Performed By: #### 2 4323-8 #### [facility] CLIA [id number] [address] [place] [address] 08633 Anion gap [Moles/Vol] 10 mmol/L Normal 8-15 [facility] Comment on above: Order Comment: Speci men Type: BLOOD SPECIMEN Ordering Facility: [facility] Address: [address] [place] [address] Performed By: #### 2 4323-8 #### [facility] CLIA [id number] [address] [place] [address] AST [Catalytic activity/Vol] 10 U/L Low 13-35 [facility] Comment on above: Order Comment: Speci men Type: BLOOD SPECIMEN Ordering Facility: [facility] Address: [address] [place], [place] [address] Performed By: #### 2 4323-8 #### [facility] CLIA [id number] [address] [place] [address] 82203 Bilirubin [Mass/Vol] 0.3 mg/dL Normal 0.2-1.3 [facility] Comment on above: Order Comment: Speci men Type: BLOOD SPECIMEN Ordering Facility: [facility] Address: [address] [place] [address] Performed By: #### 2 4323-8 #### [facility] CLIA [id number] [address] [place] [address] 49743 Calcium [Mass/Vol] 9.7 mg/dL Normal 8.5-10.[address] [facility] Comment on above: Order Comment: Speci men Type: BLOOD SPECIMEN Ordering Facility: [facility] Address: [address] [place] [address] Performed By: #### 2 4323-8 #### [facility] CLIA [id number] [address] [place] [address] 34740 Chloride [Moles/Vol] 104 mmol/L Normal 98-107 [facility] Comment on above: Order Comment: Speci men Type: BLOOD SPECIMEN Ordering Facility: [facility] Address: [address] [place] [address] Performed By: #### 2 4323-8 #### [facility] CLIA [id number] [address] [place] [address] 07364 CO2 [Moles/Vol] 25 mmol/L Normal 22-30 [facility] Comment on above: Order Comment: Speci men Type: BLOOD SPECIMEN Ordering Facility: [facility] Address: [address] [place] [address] Performed By: #### 2 4323-8 #### [facility] CLIA [id number] [address] [place] [address] Creatinine [Mass/Vol] 0.97 mg/dL High 0.58-0.96 [facility] Comment on above: Order Comment: Speci men Type: BLOOD SPECIMEN Ordering Facility: [facility] Address: [address] [place] [address] Performed By: #### 2 4323-8 #### [facility] CLIA [id number] [address] [place] [address] 03225 eGFRcr SerPlBld CKD-EPI 2020 76 mL/min/1.73m??? Normal >=60 [facility] Comment on above: Order Comment: Speci men Type: BLOOD SPECIMEN Ordering Facility: [facility] Address: [address] [place] [address] Result Comment: Maricarmen mated Glomerular Filtration Rate [...] GFR. Performed By: #### 2 4323-8 #### [facility] CLIA [id number] [address] [place] [address] 83488 Glucose [Mass/Vol] 145 mg/dL High 74-[address] [facility] Comment on above: Order Comment: Speci men Type: BLOOD SPECIMEN Ordering Facility: [facility] Address: [address] [place], [place] [address] Result Comment: The [place] [employer] (ADA) provides guidance for cutoff [...] Standards of Medical Care in Diabetes 2016, [place] [employer]. Diabetes Care. 2016.39(Suppl 1). Performed By: #### 2 4323-8 #### [facility] CLIA [id number] [address] [place] [address] 50539 Potassium [Moles/Vol] 3.6 mmol/L Low 3.7-5.1 [facility] Comment on above: Order Comment: Speci men Type: BLOOD SPECIMEN Ordering Facility: [facility] Address: [address] [place] [address] Performed By: #### 2 4323-8 #### [facility] CLIA [id number] [address] [place] [address] 59010 Protein [Mass/Vol] 6.7 g/dL Normal 6.3-8.[address] [facility] Comment on above: Order Comment: Speci men Type: BLOOD SPECIMEN Ordering Facility: [facility] Address: [address] [place] [address] Performed By: #### 2 4323-8 #### [facility] CLIA [id number] [address] [place] [address] 86282 Sodium [Moles/Vol] 139 mmol/L Normal 136-[address] [facility] Comment on above: Order Comment: Speci men Type: BLOOD SPECIMEN Ordering Facility: [facility] Address: [address] [place] [address] Performed By: #### 2 4323-8 #### [facility] CLIA [id number] [address] [place] [address] 45687 Urea nitrogen [Mass/Vol] 19 mg/dL Normal 7-21 [facility] Comment on above: Order Comment: Speci men Type: BLOOD SPECIMEN Ordering Facility: [facility] Address: [address] [place] [id number] Performed By: #### 2 4323-8 #### [facility] CLIA [id number] [address] [place] [address] No Panel InformationOrdered By: Radiologist Radiology on 09-29-2024 [facility] Work Phone: No Panel Informationon 09-29 Radiology Study observation (narrative) [facility] XR Elbow - right 2 Viewson 0 09-29-2024 [place] [address] XRay Report Signed Patient: LEANA TRAN MR#: [id number] : 1985 Acct:[id number] Age/Sex: 38 / F ADM Date: 09/29/24 Loc: LAB Attending Dr: Cas Dowell M.D. Ordering Physician: Cas Dowell M.D. Date of Service: 09/29/24 Procedure(s): XR elbow RT 2V Accession Number(s): [id number] cc: Cas Dowell M.D. [place] [id number] Patient Name: LEANA TRAN MRN: [facility]:[id number] date: 1985 Sex: F Assigned Patient Location: LAB Current Patient Location: LAB Accession/Order Number: [id number] Exam Date: 09/29/2024 13:00 Report Date: 09/29/2024 [...] Jr., D.O. 09/29/2024 1:44 PM Dictation Location: [place] [address] Electronically authenticated by: [id number] Y Date: 09/29/2024 13:44 Dictated By: Michael Price M.D. Signed By: 09/29/24 1346 DD/ 134 TD/TT: Iron Worker: [facility] Radiology, Radiologi st, MD - 09/29/2024 [place] [address] XRay Report Signed Patient: LEANA TRAN MR#: [id number] : 1985 Acct:[id number] Age/Sex: 38 / F ADM Date: 09/29/24 Loc: LAB Attending Dr: Cas Dowell M.D. Ordering Physician: Cas Dowell M.D. Date of Service: 09/29/24 Procedure(s): XR elbow RT 2V Accession Number(s): [id number] cc: Cas Dowell M.D. [place] [address] Patient Name: LEANA TRAN MRN: [facility]:[id number] date: 1985 Sex: F Assigned Patient Location: LAB Current Patient Location: LAB Accession/Order Number: [id number] Exam Date: 09/29/2024 13:00 Report Date: 09/29/2024 13:44 At the request of: CAS DOWELL MD Procedure: XR elbow RT 2V RIGHT ELBOW - 2 views CLINICAL HISTORY: Right Forearm Pain COMPARISON: None FINDINGS: No elbow joint effusion or acute bony process. Joint spaces appear maintained. XR/XR elbow RT 2V IMPRESSION: NO ACUTE BONY PROCESS. Impression dictated by: Michael Price Jr., D.OKerri 09/29/2024 1:44 PM Dictation Location: [place] [address] Electronically authenticated by: [id number] Y Date: 09/29/2024 13:44 Dictated By: Michael Price M.D. Signed By: 09/29/24 1346 DD/ 1344 TD/TT: Iron Worker: [facility] Radiology Study observation (narrative) [facility] XR Radius and Ulna - right 2 Viewson 09-29-2024 [place] [address] XRay Report Signed Patient: LEANA TRAN MR#: [id number] : 1985 Acct:[id number] Age/Sex: 38 / F ADM Date: 09/29/24 Loc: LAB Attending Dr: Cas Dowell M.D. Ordering Physician: Cas Dowell M.D. Date of Service: 09/29/24 Procedure(s): XR forearm RT 2V Accession Number(s): [id number] cc: Cas Dowell M.D. The [place] [phone] Patient Name: LEANA TRAN MRN: [facility]:[id number] date: 1985 Sex: F Assigned Patient Location: LAB Current Patient Location: LAB Accession/Order Number: [id number] Exam Date: 09/29/2024 13:00 Report Date: 09/29/2024 13:43 At the request of: CAS DOWELL MD Procedure: XR forearm RT 2V RIGHT FOREARM - 2 views CLINICAL HISTORY: Fall. Arm pain COMPARISON: None FINDINGS: No focal soft tissue abnormality. No acute bony process. XR/XR forearm RT 2V IMPRESSION: NO ACUTE BONY PROCESS. Impression dictated by: Michael Price Jr., D.O. 09/29/2024 1:43 PM Dictation Location: [place] [address] Electronically authenticated by: [id number] Y Date: 09/29/2024 13:43 Dictated By: Michael Price M.D. Signed By: 09/29/24 1346 DD/ 1343 TD/TT: Iron Worker: [facility] RadiologyMildredogvince araujo MD - 09/29/2024 [place] [address] XRay Report Signed Patient: LEANA TRAN MR#: [id number] : 1985 Acct:[id number] Age/Sex: 38 / F ADM Date: 09/29/24 Loc: LAB Attending Dr: Cas Dowell M.D. Ordering Physician: Cas Dowell M.D. Date of Service: 09/29/24 Procedure(s): XR forearm RT 2V Accession Number(s): [id number] cc: Cas Dowell M.D. [address] [id number] Patient Name: LEANA TRAN MRN: [id number]:[id number] date: 1985 Sex: F Assigned Patient Location: LAB Current Patient Location: LAB Accession/Order Number: [id number] Exam Date: 09/29/2024 13:00 Report Date: 09/29/2024 13:43 At the request of: CAS DOWELL MD Procedure: XR forearm RT 2V RIGHT FOREARM - 2 views CLINICAL HISTORY: Fall. Arm pain COMPARISON: None FINDINGS: No focal soft tissue abnormality. No acute bony process. XR/XR forearm RT 2V IMPRESSION: NO ACUTE BONY PROCESS. Impression dictated by: Jairo Radford Jr.OKerri 09/29/2024 1:43 PM Dictation Location: [place] [address] Electronically authenticated by: [id number] Y Date: 09/29/2024 13:43 Dictated By: Michael Price M.D. Signed By: 09/29/24 1346 DD/ 1343 TD/TT: Iron Worker: [employer] XR Wrist - right 2 Viewson 0 09-29-2024 [place] [address] XRay Report Signed Patient: LEANA TRAN MR#: [id number] : 1985 Acct:[id number] Age/Sex: 38 / F ADM Date: 09/29/24 Loc: LAB Attending Dr: Cas Dowell M.D. Ordering Physician: Cas Dowell M.D. Date of Service: 09/29/24 Procedure(s): XR wrist RT 2V Accession Number(s): [id number] cc: Cas Dowell M.D. [address] [address] Patient Name: LEANA TRAN MRN: TBH:[id number] date: 1985 Sex: F Assigned Patient Location: LAB Current Patient Location: LAB Accession/Order Number: [id number] Exam Date: 09/29/2024 13:00 Report Date: 09/29/2024 [...] Jr., D.O. 09/29/2024 1:43 PM Dictation Location: [place] [address] Electronically authenticated by: [id number] Y Date: 09/29/2024 13:43 Dictated By: Michael Price M.D. Signed By: 09/29/241344 DD/ 42 TD/TT: Iron Worker: [facility] Radiology Radiologvince araujo MD - 09/29/2024 [place] [address] XRay Report Signed Patient: LEANA TRAN MR#: [id number] : 1985 Acct:[id number] Age/Sex: 38 / F ADM Date: 09/29/24 Loc: LAB Attending Dr: Cas Dowell M.D. Ordering Physician: Cas Dowell M.D. Date of Service: 09/29/24 Procedure(s): XR wrist RT 2V Accession Number(s): [id number] cc: Cas Dowell M.D. [place] [id number] Patient Name: LEANA TRAN MRN: [facility]:[id number] date: 1985 Sex: F Assigned Patient Location: LAB Current Patient Location: LAB Accession/Order Number: [id number] Exam Date: 09/29/2024 13:00 Report Date: 09/29/2024 [...] Jr., D.O. 09/29/2024 1:43 PM Dictation Location: [place] [address] Electronically authenticated by: [id number] Y Date: 09/29/2024 13:43 Dictated By: Michael Price M.D. Signed By: 09/29/24 1345 DD/ 1343 TD/TT: Iron Worker: [facility] Yangaroo XR Wrist - right 2 ViewsOrde red By: Radiologist Radiology on 09-29-2024 [facility] [employer] Work Phone: Orders Onlyon 09-24-2024 Orders Only [id number] Megan Tran 1985 F Date Provider Department Center 09/24/2024 Jens-KENYA HORAN [facility] Family History Problem Relation [...] Mother's Sister Alive Mother's Sister Alive Normal [facility] Reminderson 09-17-2024 Reminders Reminders From: CHELO Choe APRN, [place] X To: EU - Administrative; Sent: 10/16/2023 12:40:17 EDT Show up: 06/14/2024 12:40:00 EDT Subject: Reminder Message Reminder Message Please schedule for 1 year follow-up Patient is scheduled for 10/09/2024 1020am [facility] Reminders Reminders From: Matt Nguyễn To: EU [...] ) Other: PROVIDER RELATED REMINDER:_ ( ) Grainer Machine ( ) Call Pharmacy ( ) Call Lab ( ) Other: Special Instructions:_ Comments:_ LVM w/ pt stating they needed to call and get appointment scheduled. Patient has an appointment on 10/09/2024 1020am. [facility] X-ray reportOrdered By: Juan Francisco Price on 09-08-2024 Study report [facility] [place] [place] [address] XRay Report Signed Patient: Leana Tran MR#: [id number] : 1985 Acct:[id number] Age/Sex: 38 / F ADM Date: 5 [facility] Attending Dr: Oliva Becerra APRN, GRINDER OPERATOR-C Copies to: Oliva Becerra APRN~ Ordering Provider: [...] Impression dictated by: Michael Price Jr., D.OKerri 09/08/2024 12:32 PM Dictation Location: RADIO-PC-23 Transcribed By: GEO 09/08/24 1232 Dictated By: Michael Price Jr, DO 09/08/24 1223 Signed By: 09/08/24 1232 [facility] XR forearm RT 2V*on 09-09-19 XR forearm RT 2V* [facility] [place] [address] [place] [address] XRay Report Signed Patient: Leana Tran MR#: [id number] : 1985 Acct:[id number] Age/Sex: 38 / F ADM Date: 09/08/24 Loc: XDUCLY Room: Type: [facility] Attending Dr: Oliva Becerra APRN, GRINDER OPERATOR-C Copies to: Oliva Becerra APRN Ordering Provider: [...] Impression dictated by: Michael Price Jr., D.OKerri 09/08/2024 12:32 PM Dictation Location: RADIO-PC-23 Transcribed By: GEO 09/08/24 1232 Dictated By: Michael Price Jr, DO 09/08/24 1223 Signed By: 09/08/24 1232 Normal [facility] Orders Onlyon 08-25-2024 Orders Only [id number] Megan Tran 1985 F Date Provider Department Center 08/25/2024 ABIEL NICHOLS ROBERTS [facility] C[facility] Family History Problem Relation [...] Mother's Sister Alive Mother's Sister Alive Normal [facility] Cardiac echo study Procedure Ordered By: Gosia Rangel on 08-22-2024 Ao Root Index 0.78 cm/m2 [employer] Phone: Aortic Root 1.6 cm [employer] Work Phone: Aortic Sinus Valsalva 2.6 cm [employer] Work Phone: Aortic Sinus Valsalva Index 1.27 cm/m2 [employer] Work Phone: Ascending Aorta 2.2 cm [employer] Work Phone: Ascending Aorta Index 1.07 cm/m2 [employer] Phone: AV Cusp Mmode 1.8 cm [employer] Work Phone: AV Mean Gradient 5 mmHg [employer] Work Phone: AV Mean Velocity 1 m/s [employer] Work Phone: AV Peak Gradient 10 mmHg [employer] Work Phone: AV Peak Velocity 1.6 m/s [employer] Work Phone: AV Velocity Ratio 0.75 Bon [employer] Work Phone: AV VTI 34.3 cm [employer] Work Phone: Body surface area Derived from formula 2.14 m2 [employer] Work Phone: E/E' Lateral 5.41 [employer] Work Phone: EF BP 60 % 55 - 100 % [employer] Work Phone: EF Physician 60 % [employer] Work Phone: Est. RA Pressure 3 mmHg [employer] Work Phone: Fractional Shortening 2D 32 % 28 - 44 % [employer] Work Phone: IVSd 0.8 cm 0.6 - 0.9 cm [employer] Work Phone: LA Area 2C 16.6 cm2 [employer] Work Phone: LA Area 4C 19.3 cm2 [employer] Work Phone: LA Major Madison 5.5 cm [employer] Work Phone: LA Minor Madison 4.9 cm [employer] Work Phone: LA Volume BP 50 mL 22 - 52 mL [employer] Work Phone: LA Volume Index BP 24 ml/m2 16 - 34 ml/m2 [employer] Work Phone: LA Volume Index MOD A2C 21 ml/m2 16 - 34 ml/m2 [employer] Work Phone: LA Volume Index MOD A4C 25 ml/m2 16 - 34 ml/m2 [employer] Work Phone: LA Volume MOD A2C 44 mL 22 - 52 mL [employer] Work Phone: LA Volume MOD A4C 51 mL 22 - 52 mL [employer] Work Phone: LV E' Lateral Velocity 14.6 cm/s [employer] Work Phone: LV EDV A2C 86 mL [employer] Work Phone: LV EDV A4C 101 mL [employer] Work Phone: LV EDV Index A2C 42 mL/m2 [employer] Work Phone: LV EDV Index A4C 49 mL/m2 [employer] Work Phone: LV Ejection Fraction A2C 63 % [employer] Work Phone: LV Ejection Fraction A4C 59 % [employer] Work Phone: LV ESV A2C 32 mL [employer] Work Phone: LV ESV A4C 42 mL [employer] Work Phone: LV ESV Index A2C 16 mL/m2 [employer] Work Phone: LV ESV Index A4C 20 mL/m2 [employer] Work Phone: LV Mass 2D 122.3 g 67 - 162 g [employer] Work Phone: LV Mass 2D Index 59.6 g/m2 43 - 95 g/m2 [employer] Phone: LV RWT Ratio 0.34 [employer] Work Phone: LVIDd 4.7 cm 3.9 - 5.3 cm [employer] Work Phone: LVIDd Index 2.29 cm/m2 [employer] Work Phone: LVIDs 3.2 cm [employer] Work Phone: LVIDs Index 1.56 cm/m2 [employer] Work Phone: LVOT Mean Gradient 3 mmHg Bon [employer] Work Phone: LVOT Peak Gradient 6 mmHg Bon [employer] Work Phone: LVOT Peak Velocity 1.2 m/s [employer] Work Phone: LVOT VTI 26.3 cm [employer] Work Phone: LVOT:AV VTI Index 0.77 [employer] Work Phone: LVPWd 0.8 cm 0.6 - 0.9 cm [employer] Work Phone: MV A Velocity 0.54 m/s [employer] Work Phone: MV E Velocity 0.79 m/s [employer] Work Phone: MV E Wave Deceleration Time 174 ms [employer] Phone: MV E/A 1.46 [employer] Work Phone: AL Max Velocity 0.7 m/s [employer] Work Phone: Pulmonary Artery EDP 2 mmHg [employer] Work Phone: PV Max Velocity 1 m/s [employer] Work Phone: PV Peak Gradient 4 mmHg [employer] Work Phone: RVSP 20 mmHg Bon [employer] Work Phone: Sinotubular Junction 1.8 cm [employer] Work Phone: TAPSE 2.4 cm 1.7 cm [employer] Work Phone: TR Max Velocity 2.07 m/s [employer] Work Phone: TR Peak Gradient 17 mmHg [employer] Work Phone: [employer] Work Phone: Cardiac echo study Procedure on [...] Image quality: adequate. No contrast was given. [facility] CV CPACS Radiology Study observation (narrative) Hong Dang [facility] 36on 08-13-2024 36 I faxed the order to number given. [address] outpt mohinder adams is requesting the order to be faxed to their facility. Please send to fax#[phone]. Thank you This phone message was created by the Ambulatory float staff. If you need student support counselor follow up regarding this patient, please make your appropriate clinic staff member aware. Thank you. [facility] Telemedicineon 08-12-2024 Telemedicine [id number] Megan Tran 1985 F Date Provider Department [place] 08/12/2024 MACRINA FISCHER ROBERTS [facility] Family History Problem Relation [...] Sister Alive Mother's Sister Alive Level of Service:44957 AL OFFICE/OUTPATIENT ESTABLISHED LOW [facility] 20 MIN Reason for Visit and Comments: Telehealth Audio/video Visit [871] Normal [facility] ALL CBC WITH AUTO DIFFon BASOPHILS ABSOLUTE AUTO 0 [facility] Basophils/100 WBC (Bld) 0.6 % 0.2 - 2.0 % [facility] Eosinophils/100 WBC (Bld) 2.6 % 0.9 - 7.0 % [facility] Erythrocyte distribution width (RBC) [Ratio] 11.6 % 11.0 - 15.0 % [facility] Hematocrit (Bld) [Volume fraction] 43.2 % 36.0 - 48.0 % [facility] Hemoglobin (Bld) [Mass/Vol] 14.7 g/dL 12.0 - 16.0 g/dL [facility] IMMATURE GRANULOCYTES ABS AUTO 0.02 [facility] Immature granulocytes/100 WBC (Bld) 0.3 % 0.0 - 0.5 % [facility] LYMPHOCYTES ABSOLUTE AUTO 1.6 [facility] Lymphocytes/100 WBC (Bld) 22.8 % 20.5 - 60.0 % [facility] MCH (RBC) [Entitic mass] 29.6 pg 26.7 - 34.0 pg [facility] MCHC (RBC) [Mass/Vol] 34 g/dL 29.9 - 35.2 g/dL [facility] MCV (RBC) [Entitic vol] 86.9 fL 81.0 - 99.0 fL [facility] MONOCYTES ABSOLUTE AUTO 0.4 [facility] Monocytes/100 WBC (Bld) 5.7 % 1.7 - 12.0 % [facility] NEUTROPHILS ABSOLUTE AUTO 4.7 [facility] Neutrophils/100 WBC (Bld) 68 % 43.0 - 75.0 % [facility] Platelet mean volume (Bld) [Entitic vol] 10.1 fL 9.5 - 13.5 fL [facility] TBH EO # 0.2 [facility] TBH PLT 258 [facility] RBC 4.97 [facility] WBC 6.8 [facility] Orders Onlyon 07-09-2024 Orders Only [id number] Megan Tran 1985 F Date Provider Department Center 07/09/2024 Jens-KENYA HORAN [facility]ERT[facility] Family History Problem Relation [...] Grandmother Son Alive Son Alive Son Alive [facility] 36on 05-23-2024 36 Pt is unable to find any pyridostigmine ER 180 mg in stock. She was on the short acting last time this happened. Short acting sent to the pharmacy [facility] 36 Pt notified the pyridostigmine ER is on back order. She is going to call around to see if she can find it in stock [facility] ALL DHEA SULFATEon 5 DHEA-SULFATE 60.8 ug/dL 57.3 - 279.2 ug/dL [facility] Comment on above: Performed at: [address] [id number] [employer] Real [employer] Specialist: Zacarias Sage PhD, Phone: [phone] No Panel Informationon 05-07 [facility] SRMCOH TESTOSTERONE FREE/TOT EQUILIBon 05-07-2024 FREE TESTOSTERONE(DIRECT) 1.2 pg/mL 0.0 - 4.2 pg/mL [facility] Comment on above: Performed at: [address] [id number] [employer] Specialist: Zacarias Sage PhD, Phone: [phone] Performed at: [facility] Lab[address] [id number] [employer] Specialist: Guerrero Bojorquez MD, Phone: [phone] Testosterone [Mass/Vol] 12 ng/dL 8 - 60 ng/dL [facility] ALLERGENS W/COMP RFLX AREA 5 on 05-02-2024 CLASS DESCRIPTION Comment . [facility] Comment on above: Levels of Specific I gE Class Description of Class ----- < 0.10 0 Negative 0.10 - 0.31 0/I Equivocal/Low 0.32 - 0.55 I Low 0.56 - 1.40 II Moderate 1.41 - 3.90 III High 3.91 - 19.00 IV Very High 19.01 - 100.00 V Very High >100.00 Very High L994-XNF D PTERONYSSINUS <0.10 Class 0 kU/L [facility] W307-QFH D FARINAE <0.10 Class 0 kU/L [facility] P246-CVQ CAT DANDER <0.10 Class 0 kU/L [facility] D070-OIP DOG DANDER <0.10 Class 0 kU/L [facility] P328-GAC MOUSE URINE <0.10 Class 0 kU/L [facility] Comment on above: Performed at: [facility] [employer] [address] [id number] [employer] Specialist: Guerrero Bojorquez MD, Phone: [phone] E500-KUB BERMUDA GRASS <0.10 Class 0 kU/L [facility] W001-INC LAURYN GRASS <0.10 Class 0 kU/L [facility] X315-TWU COCKROACH, BOTSWANAN <0.10 Class 0 kU/L [facility] IMMUNOGLOBULIN E, TOTAL <2 Abnormal [facility] Interpretation and review of laboratory results Abnormal [facility] W335-MJP PENICILLIUM CHRYSOGEN <0.10 Class 0 kU/L [facility] E357-LKX CLADOSPORIUM HERBARUM <0.10 Class 0 kU/L [facility] W562-VGE ASPERGILLUS FUMIGATUS <0.10 Class 0 kU/L [facility] K077-ZEP ALTERNARIA ALTERNATA <0.10 Class 0 kU/L [facility] X068-DVX MAPLE/BOX ELDER <0.10 Class 0 kU/L [facility] P427-LOZ COMMON SILVER BIRCH <0.10 Class 0 kU/L [facility] P526-DUJ CEDAR, MOUNTAIN <0.10 Class 0 kU/L [facility] Z653-HMP OAK, WHITE <0.10 Class 0 kU/L [facility] O390-HJD ELM, ARGENTINE <0.10 Class 0 kU/L [facility] P036-GXA WALNUT <0.10 Class 0 kU/L [facility] H929-XNP MAPLE LEAF [place] <0.10 Class 0 kU/L [facility] R240-RXP COTTONWOOD <0.10 Class 0 kU/L [facility] Q043-OQD REEMA, WHITE <0.10 Class 0 kU/L [facility] O500-DJP PECAN, HICKORY <0.10 Class 0 kU/L [facility] E203-JPE WHITE MULBERRY <0.10 Class 0 kU/L [facility] R795-AFQ RAGWEED, SHORT <0.10 Class 0 kU/L [facility] J013-HAE THISTLE, P[place] ISLANDER <0.10 Class 0 kU/L [facility] R945-XCD PIGWEED, COMMON <0.10 Class 0 kU/L [facility] U536-ERM SHEEP SORREL <0.10 Class 0 kU/L [facility] MLR HEMOGLOBIN A1Con 025 Glucose [Mass/Vol] 120 mg/dL [facility] HbA1c (Bld) [Mass fraction] 5.8 % 4.5 - 6.2 % [facility] Comment on above: ADA RECOMMENDED LIMI T 4.0 - 6.0 ADA THERAPEUTIC TARGET < 7.0 ACTION SUGGESTED > 7.0 [facility] FREE T3on 02-05-2024 Free T3 [Mass/Vol] 2.70 pg/mL Normal 2.50-3.90 [facility] Comment on above: Performed By: #### 3 016-3, 3051-0, 302-7 #### [facility] ([id number]) [address], [address] [place] [address] FREE T4on 02-05-2024 Free T4 [Mass/Vol] 0.75 ng/dL Normal 0.61-1.60 [facility] Comment on above: Performed By: #### 3 016-3, 305-0, 3027 #### [facility] ([id number]) [address] [place] [address] TSH Qnon 02-05-2024 TSH 0.44 uIU/mL Low 0.49-4.67 [facility] Comment on above: Performed By: #### 3 016-3, 305-0, 3027 #### [facility] ([id number]) [address], [address] [place] [address] Measles (Rubeola) Imon 12-27 Measles (Rubeola) Im 2.45 Normal >1.09 [facility] Comment on above: Result Comment: Interpretation: IMMUNE Reference Range: <0.91 Not Immune 0.91-1.09 Equivocal >1.09 Immune Performed By: #### R UBI, BALTAZAR, VZI, GRICELDA #### [employer] [address] [place], [place] [id number] [employer] Specialist: Emanuel Reaves MD Mumps,Immun,Abon 12-28-2023 Mumps,Immun,Ab 3.42 Normal >1.09 [facility] Comment on above: Result Comment: Interpretation: IMMUNE Reference Range: <0.91 Not Immune 0.91-1.09 Equivocal >1.09 Immune Performed By: #### R UBI, BALTAZAR, VZI, GRICELDA #### [employer] [address] [place], [place] [id number] [employer] Specialist: Emanuel Reaves MD VZ Immunityon 12-28-2023 VZ Immunity 1.85 Normal >1.09 [facility] Comment on above: Result Comment: Interpretation: IMMUNE Reference Range: <0.91 Not Immune 0.91-1.09 Equivocal >1.09 Immune Performed By: #### R UBI, BALTAZAR, VZI, GRICELDA #### [facility] [employer] [facility] [place], [place] [id number] [employer] Specialist: Emanuel Reaves MD MHPT RUBELLA AB, IGGon 12-26 MHPT RUBELLA AB, IGG 62.7 IU/mL [facility] Comment on above: <10 NON REACTIVE Negative for Anti-Rubella IgG >=10 REACTIVE Positive for Anti Rubella IgG The presence of IgG antibody to Rubella virus is an indication of previous exposure either by prior infection or vaccination. Original Ordering Pr ovider: IVORY ORDAZ [facility] Rubella Ab, IgGon 12-27-2023 Rubella Ab, IgG 62.7 IU/mL Normal [facility] Comment on above: Result Comment: <10 NON REACTIVE Negative for Anti-Rubella IgG >=10 REACTIVE Positive for Anti Rubella IgG The presence of IgG antibody to Rubella virus is an indication of previous exposure either by prior infection or vaccination. Performed By: #### R UBI, BALTAZAR, VZI, GRICELDA #### [facility] [employer] [address] [place] [id number] [employer] Specialist: Emanuel Reaves MD Rubella antibody, IgGon 12-07 Rubella virus IgG IA Ql 62.7 IU/mL [facility] Comment on above: <10 NON REACTIVE Negative for Anti-Rubella IgG >=10 REACTIVE Positive for Anti Rubella IgG The presence of IgG antibody to Rubella virus is an indication of previous exposure either by prior infection or vaccination. [facility] IGP,APTIMA HPV,AGE GDLNon AGE GDLN ACOG TESTING Note . [facility] Comment on above: TESTS RESULT FLAG UN ITS REF RANGE LAB Clinician Provided Cytology Information Source.............Vagina No. of containers..01 ThinPrep Vial Age Alysia GARCIA Ashia... 28 FLAG LEGEND: L-Low Normal,H-High Normal,LL-Alert Low,HH-Alert High <-Panic Low,>-Panic High,A-Abnormal,AA-Critical Abnormal Performed at: 01 =G [address] [place] [address] Maryjo Saez MD, HPV APTIMA Negative Negative [facility] Comment on above: This nucleic acid am plification test detects fourteen high- risk HPV types (16,18,31,33,35,39,45,51,52,56,58,59,66,68) without differentiation. Performed at: =[address] [id number] [employer] Specialist: Maryjo Saez MD, Phone: [phone] Performed at: - [address] [id number] [employer] Specialist: Maryjo Saez MD, Phone: [phone] IGP, APTIMA HPV, RFX 16/18,45 Note . [facility] Comment on above: TESTS RESULT FLAG U NITS REF RANGE LAB DIAGNOSIS: 02 NEGATIVE FOR INTRAEPITHELIAL LESION OR MALIGNANCY. Specimen adequacy: 02 Satisfactory for evaluation. No endocervical component is identified. Performed by: 02 Kelly Burns, Yard Motor Operator ([facility]) . 02 Note: Note 02 The Pap [...] Low,>-Panic High,A-Abnormal,AA-Critical Abnormal Performed at: [address] [place] [address] Maryjo Saez MD, SPATULA-ALONE VAGINA [facility] ALL THYROXINE (T4) FREEon Free T4 [Mass/Vol] 0.89 ng/dL 0.76 - 1.46 ng/dL [facility] CBC W AUTO DIFF BLDon Basophils/100 WBC (Bld) 0.7 % [facility] BASOPHILS # BLD AUTO 0.04 [facility] DIFFERENTIAL METHOD BLD Auto [facility] EOSINOPHIL # BLD AUTO 0.15 [facility] LYMPHOCYTES # BLD AUTO 1.23 [facility] MONOCYTES # BLD AUTO 0.24 [facility] NEUTROPHILS # BLD AUTO 4.06 [facility] NRBC # BLD AUTO <0.01 [facility] NRBC/100 WBC BLD-RTO 0.0 /100 WBC [facility] PLATELET # BLD AUTO 241 [facility] PMV BLD AUTO 10.0 fL 9.0 - 12.7 fL [facility] WBC # BLD AUTO 5.75 [facility] Eosinophils/100 WBC (Bld) 2.6 % [facility] Erythrocyte distribution width (RBC) [Ratio] 11.6 % 11.5 - 15.0 % [facility] Hematocrit (Bld) [Volume fraction] 41.7 % 36.0 - 46.0 % [facility] Hemoglobin (Bld) [Mass/Vol] 14.7 g/dL 11.5 - 15.5 g/dL [facility] IMM GRANULOCYTES # BLD AUTO 0.03 [facility] IMM GRANULOCYTES/LEUK NFR BLD AUTO 0.5 % [facility] Lymphocytes/100 WBC (Bld) 21.4 % [facility] MCH (RBC) [Entitic mass] 30.2 pg 26.0 - 34.0 pg [facility] MCHC (RBC) [Mass/Vol] 35.3 g/dL 30.5 - 36.0 g/dL [facility] MCV (RBC) [Entitic vol] 85.8 fL 80.0 - 100.0 fL [facility] Monocytes/100 WBC (Bld) 4.2 % [facility] Neutrophils/100 WBC (Bld) 70.6 % [facility] RBC (Bld) [#/Vol] 4.86 10*6/uL 3.90 - 5.20 m/uL [facility] Specimen Type: BLOOD SPECIMEN Ordering Facility: [facility] Address: [address] [place], [place] [id number] Original Ordering Provider: [place] [facility] Hemoglobin [id number] By: Alize Kong on 01-01-2023 [facility] CELIAC ANTIBODIES PROFILEon 06-16-2022 Deamidated Gliadin Abs, IgA 26 units Critically high 0-19 [facility] Comment on above: Result Comment: Nega tive 0 - 19 Weak Positive 20 - 30 Moderate to Strong Positive >30 Performed By: #### C BC #### [facility] [address] [place] [address] Dr. Nilton Mccall Deamidated Gliadin Abs, IgG 5 units Normal 0-19 [facility] Comment on above: Result Comment: Nega tive 0 - 19 Weak Positive 20 - 30 Moderate to Strong Positive >30 Performed By: #### C BC #### [facility] [address] [place] [address] Dr. Nilton Mccall Endomysial Antibody IgA Negative Normal Negative [facility] Comment on above: Performed By: #### C BC #### [facility] [address] [place] [address] Dr. Nilton Mccall Immunoglobulin A, Qn, Serum 205 mg/dL Normal 87-352 [facility] Comment on above: Performed By: #### C BC #### [facility] [address] [place] [address] Dr. Nilton Mccall t-Transglutaminase (tTG) IgA <2 Normal 0-3 [facility] Comment on above: Result Comment: Nega tive 0 - 3 Weak Positive 4 - 10 Positive >10 . Tissue Transglutaminase (tTG) has been identified as the endomysial antigen. Studies have demonstr- ated that endomysial IgA antibodies have over 99% specificity for gluten sensitive enteropathy. Performed By: #### C BC #### [facility] [address] [place] [address] Dr. Nilton Mccall t-Transglutaminase (tTG) IgG 3 U/mL Normal 0-5 [facility] Comment on above: Result Comment: Nega tive 0 - 5 Weak Positive 6 - 9 Positive >9 Performed By: #### C BC #### [facility] [address] [place] [address] Dr. Nilton Mccall CBC AUTO DIFFon 06-15-2022 BASO # 0.0 103/ul Normal 0.0-0.1 [facility] Comment on above: Performed By: #### C BC #### [facility] [address] [address] [address] Nilton Mccall Basophils/100 WBC (Bld) 0.5 % Normal 0.2-2.0 [facility] Comment on above: Performed By: #### C BC #### [facility] [address] [address] [address] Nilton Mccall EO # 0.2 103/ul Normal 0.0-0.7 [facility] Comment on above: Performed By: #### C BC #### [facility] [address] [place] [address] Dr. Nilton Mccall Eosinophils/100 WBC (Bld) 2.8 % Normal 0.9-7.0 [facility] Comment on above: Performed By: #### C BC #### [facility] [address] [place] [address] Dr. Nilton Mccall Erythrocyte distribution width (RBC) [Ratio] 11.8 % Normal 11.0-15.0 [facility] Comment on above: Performed By: #### C BC #### [facility] [address] [place] [address] Dr. Nilton Mccall Hematocrit (Bld) [Volume fraction] 41.8 % Normal 36.0-48.0 [facility] Comment on above: Performed By: #### C BC #### [facility] [address] [place] [address] Dr. Nilton Mccall Hemoglobin (Bld) [Mass/Vol] 14.2 g/dL Normal 12.0-16.0 [facility] Comment on above: Performed By: #### C BC #### [facility] [address] [place] [address] Dr. Nilton Mccall IG # 0.03 10e3/ul Normal 0.00-0.03 [facility] Comment on above: Performed By: #### C BC #### [facility] [address] [place] [address] Dr. Nilton Mccall IG % 0.4 % Normal 0.0-0.5 [facility] Comment on above: Performed By: #### C BC #### [facility] [address] [place] [address] Dr. Nilton cMcall LYMPH # 2.3 103/ul Normal 1.2-3.8 [facility] Comment on above: Performed By: #### C BC #### [facility] [address] [place] [address] Dr. Nilton Mccall Lymphocytes/100 WBC (Bld) 28.8 % Normal 20.5-60.0 [facility] Comment on above: Performed By: #### C BC #### [facility] [address] [place] [address] Dr. Nilton Mccall MANUAL DIFF REQ NO Normal [facility] Comment on above: Performed By: #### C BC #### [facility] [address] [place] [address] Dr. Nilton Mccall MCH (RBC) [Entitic mass] 29.4 pg Normal 26.7-34.0 [facility] Comment on above: Performed By: #### C BC #### [facility] [address] [place] [address] Dr. Nilton Mccall MCHC (RBC) [Mass/Vol] 34.0 g/dL Normal 29.9-35.2 [facility] Comment on above: Performed By: #### C BC #### [facility] [address] [place] [address] Dr. Nilton Mccall MCV (RBC) [Entitic vol] 86.5 fL Normal 81.0-99.0 [facility] Comment on above: Performed By: #### C BC #### [facility] [address] [place] [address] Dr. Nilton Mccall MONO # 0.4 103/ul Normal 0.3-0.8 [facility] Comment on above: Performed By: #### C BC #### [facility] [address] [place] [address] Dr. Nilton Mccall Monocytes/100 WBC (Bld) 4.5 % Normal 1.7-12.0 [facility] Comment on above: Performed By: #### C BC #### [facility] [address] [place] [address] Dr. Nilton Mccall NEUT # 5.0 103/ul Normal 1.4-6.5 [facility] Comment on above: Performed By: #### C BC #### [facility] [address] [place] [address] Dr. Nilton Mccall Neutrophils/100 WBC (Bld) 63.0 % Normal 43.0-75.0 [facility] Comment on above: Performed By: #### C BC #### [facility] [address] [place] [address] Dr. Nilton Mccall Platelet mean volume (Bld) [Entitic vol] 9.5 fL Normal 9.5-13.5 [facility] Comment on above: Performed By: #### C BC #### [facility] [address] [place] [address] Dr. Nilton Mccall PLT 279 103/ul Normal 150-450 [facility] Comment on above: Performed By: #### C BC #### [facility] [address] [place] [address] Dr. Nilton Mccall RBC 4.83 106/ul Normal 4.20-5.40 [facility] Comment on above: Performed By: #### C BC #### [facility] [address] [place] [address] Dr. Nilton Mccall WBC 7.9 103/ul Normal 4.0-11.0 [facility] Comment on above: Performed By: #### C BC #### [facility] [address] [place] [address] Dr. Nilton Mccall GLYCOHEMOGLOBIN A1Con 2022 ADA RECOMMENDATION SEE BELOW Normal [facility] Comment on above: Result Comment: ADA RECOMMENDED LIMIT 4.0 - 6.0 ADA THERAPEUTIC TARGET < 7.0 ACTION SUGGESTED > 7.0 Performed By: #### C MP #### [facility] [address] [place] [address] Dr. Nilton Mccall Glucose [Mass/Vol] 117 mg/dL Normal [facility] Comment on above: Performed By: #### C MP #### [facility] [address] [place] [address] Dr. Nilton Mccall HbA1c (Bld) [Mass fraction] 5.7 % Normal 4.5-6.2 [facility] Comment on above: Performed By: #### C MP #### [facility] [address] [place] [address] Dr. Nilton Mccall VIT B12 AND FOLATEon 023 Cobalamin (Vitamin B12) [Mass/Vol] 539.0 pg/mL Normal 193.0-986. 0 [facility] Comment on above: Performed By: #### C BC #### [facility] [address] [place] [address] Dr. Nilton Mccall FOLATE 16.40 ng/mL Normal 8.60-58.90 [facility] Comment on above: Performed By: #### C BC #### [facility] [address] [place] [address] Dr. Nilton Mccall VITAMIN D 25 OHon 06-15-2022 VIT D 25-OH 41.2 ng/mL Normal [facility] Comment on above: Performed By: #### C BC #### [facility] [address] [place] [address] Dr. Nilton Mccall VIT D RANGES SEE BELOW Normal [facility] Comment on above: Result Comment: <20 ng/mL Vit D deficient 20 - <30 ng/mL Vit D insufficient 30 - 100 ng/mL Vit D sufficient >100 ng/mL Potential Toxicity Performed By: #### C BC #### [facility] [address] [place] [address] Dr. Nilton Mccall FREE T3on 06-05-2022 FREE T3 2.39 pg/mlL Normal 2.18-3.98 [facility] Comment on above: Performed By: #### T SH, FT3 #### [facility] [address] [place] [address] Dr. Nilton Mccall FREE T4on 06-05-2022 Free T4 [Mass/Vol] 0.89 ng/dL Normal 0.76-1.46 [facility] Comment on above: Performed By: #### C MP #### [facility] [address] [place] [address] Dr. Nilton Mccall TSHon 06-05-2022 TSH 1.431 uIU/mL Normal 0.358-3.74 0 [facility] Comment on above: Performed By: #### T , FT3 #### [facility] [address] [address] [address] Nilton Mccall PLATELET TRANSMISSION ELECTR ON MICROSCOPIC STUDYon 03-29-2022 PLATELET TEM Performed Normal [facility] Comment on above: Order Comment: Specvince jules Type: BLOOD SPECIMEN Ordering Facility: [facility] Address: [address] [address] Performed By: #### P LTEMS #### [facility] CLIA [id number] [address] [place] [id number] PTEM INTERPRETATION SEE NOTE Normal [facility] Comment on above: Order Comment: Merrittvince jules Type: BLOOD SPECIMEN Ordering Facility: [facility] Address: [address] [address] Result Comment: IMPR ESSION: Platelet transmission electron [...] and its performance characteristics determined by [facility] in a manner consistent with CLIA requirements. This test has not been cleared or approved by the U.S. Food and Drug Administration. Test Performed by: [facility] [address] [place] [address] [employer] Specialist: Shree Norwood M.D. Ph.D.; CLIA# [id number] Performed By: #### P LTEMS #### [facility] CLIA [id number] [address] [place] [address] T4, Freeon 02-17-2022 Thyroxine, Free 1.34 ng/dL 0.93 - 1.70 ng/dL [facility] TSH with Reflexon 02-17-2022 Interpretation and review of laboratory results Abnormal [facility] TSH Qn 0.08 m[IU]/L Low [facility] US KIDNEYSon 12-26-2021 US KIDNEYS EXAMINATION: [facility] H[facility]: Elodia hematuria COMPARISON: 10/20/2020, 11/14/2021 TECHNIQUE: [...] Date: 2021-12-26 07:22 Normal [facility] CBC AUTO DIFFon 12-12-2021 BASO # 0.0 103/ul Normal 0.0-0.1 [facility] Comment on above: Performed By: #### C MP #### [facility] [address] [address] [address] Nilton Mccall Basophils/100 WBC (Bld) 0.5 % Normal 0.2-2.0 [facility] Comment on above: Performed By: #### C MP #### [facility] [address] [address] [address] Nilton Mccall EO # 0.2 103/ul Normal 0.0-0.7 [facility] Comment on above: Performed By: #### C MP #### [facility] [address] [address] [address] Nilton Mccall Eosinophils/100 WBC (Bld) 3.2 % Normal 0.9-7.0 [facility] Comment on above: Performed By: #### C MP #### [facility] [address] [place] [address] Dr. Nilton Mccall Erythrocyte distribution width (RBC) [Ratio] 11.9 % Normal 11.0-15.0 [facility] Comment on above: Performed By: #### C MP #### [facility] [address] [place] [address] Dr. Nilton Mccall Hematocrit (Bld) [Volume fraction] 42.8 % Normal 36.0-48.0 [facility] Comment on above: Performed By: #### C MP #### [facility] [address] [place] [address] Dr. Nilton Mccall Hemoglobin (Bld) [Mass/Vol] 14.4 g/dL Normal 12.0-16.0 [facility] Comment on above: Performed By: #### C MP #### [facility] [address] [place] [address] Dr. Nilton Mccall IG # 0.02 10e3/ul Normal 0.00-0.03 [facility] Comment on above: Performed By: #### C MP #### [facility] [address] [place] [address] Dr. Nilton Mccall IG % 0.3 % Normal 0.0-0.5 [facility] Comment on above: Performed By: #### C MP #### [facility] [address] [place] [address] Dr. Nilton Mccall LYMPH # 1.4 103/ul Normal 1.2-3.8 [facility] Comment on above: Performed By: #### C MP #### [facility] [address] [place] [address] Dr. Nilton Mccall Lymphocytes/100 WBC (Bld) 22.3 % Normal 20.5-60.0 [facility] Comment on above: Performed By: #### C MP #### [facility] [address] [place] [address] Dr. Nilton Mccall MANUAL DIFF REQ NO Normal [facility] Comment on above: Performed By: #### C MP #### [facility] [address] [place] [address] Dr. Nilton Mccall MCH (RBC) [Entitic mass] 28.9 pg Normal 26.7-34.0 [facility] Comment on above: Performed By: #### C MP #### [facility] [address] [place] [address] Dr. Nilton Mccall MCHC (RBC) [Mass/Vol] 33.6 g/dL Normal 29.9-35.2 [facility] Comment on above: Performed By: #### C MP #### [facility] [address] [place] [address] Dr. Nilton Mccall MCV (RBC) [Entitic vol] 85.9 fL Normal 81.0-99.0 [facility] Comment on above: Performed By: #### C MP #### [facility] [address] [place] [address] Dr. Nilton Mccall MONO # 0.3 103/ul Normal 0.3-0.8 [facility] Comment on above: Performed By: #### C MP #### [facility] [address] [place] [address] Dr. Nilton Mccall Monocytes/100 WBC (Bld) 4.9 % Normal 1.7-12.0 [facility] Comment on above: Performed By: #### C MP #### [facility] [address] [place] [address] Dr. Nilton Mccall NEUT # 4.4 103/ul Normal 1.4-6.5 [facility] Comment on above: Performed By: #### C MP #### [facility] [address] [address] [address] Nilton Mccall Neutrophils/100 WBC (Bld) 68.8 % Normal 43.0-75.0 [facility] Comment on above: Performed By: #### C MP #### [facility] [address] [address] [address] Nilton Mccall Platelet mean volume (Bld) [Entitic vol] 9.9 fL Normal 9.5-13.5 [facility] Comment on above: Performed By: #### C MP #### [facility] [address] [address] [address] Nilton Mccall PLT 237 103/ul Normal 150-450 [facility] Comment on above: Performed By: #### C MP #### [facility] [address] [place] [address] Dr. Nilton Mccall RBC 4.98 106/ul Normal 4.20-5.40 [facility] Comment on above: Performed By: #### C MP #### [facility] [address] [address] [address] Nilton Mccall WBC 6.3 103/ul Normal 4.0-11.0 [facility] Comment on above: Performed By: #### C MP #### [facility] [address] [address] [address] Nilton Mccall GLYCOHEMOGLOBIN A1Con 2021 ADA RECOMMENDATION SEE BELOW Normal [facility] Comment on above: Result Comment: ADA RECOMMENDED LIMIT 4.0 - 6.0 ADA THERAPEUTIC TARGET < 7.0 ACTION SUGGESTED > 7.0 Performed By: #### P T, PTT #### [facility] [address] [place] [address] Dr. Nilton Mccall Glucose [Mass/Vol] 120 mg/dL Normal [facility] Comment on above: Performed By: #### P T, PTT #### [facility] [address] [place] [address] Dr. Nilton Mccall HbA1c (Bld) [Mass fraction] 5.8 % Normal 4.5-6.2 [facility] Comment on above: Performed By: #### P T, PTT #### [facility] [address] [address] [address] Nilton Mccall LIPID PROFILEon 12-12-2021 CHOL-HDL RATIO NORM SEE BELOW Normal [facility] Comment on above: Result Comment: 3.3 - 4.4 LOW RISK 4.4 - 7.1 AVERAGE RISK 7.1 - 11.0 MODERATE RISK >11.0 HIGH RISK Performed By: #### P T, PTT #### [facility] [address] [address] [address] Nilton Mccall Cholesterol [Mass/Vol] 225 mg/dL Critically high <=200 [facility] Comment on above: Performed By: #### P T, PTT #### [facility] [address] [address] [address] Nilton Mccall Cholesterol in HDL [Mass/Vol] 32 mg/dL Critically low 40-60 [facility] Comment on above: Performed By: #### P T, PTT #### [facility] [address] [address] [address] Nilton Mccall Cholesterol in LDL [Mass/Vol] 132.8 mg/dL Normal [facility] Comment on above: Performed By: #### P T, PTT #### [facility] [address] [address] [address] Nilton Mccall Cholesterol.total/Ch olesterol in HDL [Mass ratio] 7.0 {ratio} Normal [facility] Comment on above: Performed By: #### P T, PTT #### [facility] [address] [address] [address] Nilton Mccall HDL NORMAL > or = 60 mg/dl - LO W CARDIOVASCULAR RISK <40 mg/dl - HIGH CARDIOVASCULAR RISK Normal [facility] Comment on above: Performed By: #### P T, PTT #### [facility] [address] [address] [address] Nilton Mccall LDL CALC NORMAL SEE BELOW Normal [facility] Comment on above: Result Comment: <100 mg/dl OPTIMAL 100 - 129 mg/dl NEAR OR ABOVE OPTIMAL 130 - 159 mg/dl BORDERLINE HIGH 160 - 189 mg/dl HIGH >190 mg/dl VERY HIGH Performed By: #### P T, PTT #### [facility] [address] [place] [address] Dr. Nilton Mccall Triglyceride [Mass/Vol] 301 mg/dL Critically high <=150 [facility] Comment on above: Performed By: #### P T, PTT #### [facility] [address] [place] [address] Dr. Nilton Mccall VLDL CALC 60.2 mg/dL Normal [facility] Comment on above: Performed By: #### P T, PTT #### [facility] [address] [address] [address] Nilton Mccall LIVER PROFILEon 12-12-2021 Albumin [Mass/Vol] 4.0 g/dL Normal 3.4-5.0 [facility] Comment on above: Performed By: #### P T, PTT #### [facility] [address] [place] [address] Dr. Nilton Mccall Albumin/Globulin [Mass ratio] 1.1 {ratio} Normal [facility] Comment on above: Performed By: #### P T, PTT #### [facility] [address] [place] [address] Dr. Nilton Mccall ALP [Catalytic activity/Vol] 70 U/L Normal 46-116 [facility] Comment on above: Performed By: #### P T, PTT #### [facility] [address] [place] [address] Dr. Nilton Mccall ALT [Catalytic activity/Vol] 30 U/L Normal 14-59 [facility] Comment on above: Performed By: #### P T, PTT #### [facility] [address] [place] [address] Dr. Nilton Mccall AST [Catalytic activity/Vol] 15 U/L Normal 15-37 [facility] Comment on above: Performed By: #### P T, PTT #### [facility] [address] [place] [address] Dr. Nilton Mccall BILI, CONJUGATED 0.1 mg/dL Normal 0.0-0.2 [facility] Comment on above: Performed By: #### P T, PTT #### [facility] [address] [place] [address] Dr. Nilton Mccall Bilirubin [Mass/Vol] 0.3 mg/dL Normal 0.2-1.0 [facility] Comment on above: Performed By: #### P T, PTT #### [facility] [address] [place] [address] Dr. Nilton Mccall Globulin (S) [Mass/Vol] 3.5 g/dL Normal [facility] Comment on above: Performed By: #### P T, PTT #### [facility] [address] [place] [address] Dr. Nilton Mccall Protein [Mass/Vol] 7.5 g/dL Normal 6.4-8.2 [facility] Comment on above: Performed By: #### P T, PTT #### [facility] [address] [place] [address] Dr. Nilton Mccall PROF CHEM 8 (BAS METB)on Anion gap [Moles/Vol] 7.2 mmol/L Normal [facility] Comment on above: Performed By: #### P T, PTT #### [facility] [address] [place] [address] Dr. Nilton Mccall Calcium [Mass/Vol] 9.1 mg/dL Normal 8.5-10.1 [facility] Comment on above: Performed By: #### P T, PTT #### [facility] [address] [place] [address] Dr. Nilton Mccall Chloride [Moles/Vol] 104 mmol/L Normal 98-107 [facility] Comment on above: Performed By: #### P T, PTT #### [facility] [address] [place] [address] Dr. Nilton Mccall CO2 [Moles/Vol] 29.7 mmol/L Normal 21.0-32.0 [facility] Comment on above: Performed By: #### P T, PTT #### [facility] [address] [place] [address] Dr. Nilton Mccall Creatinine [Mass/Vol] 0.97 mg/dL Normal 0.55-1.02 [facility] Comment on above: Performed By: #### P T, PTT #### [facility] [address] [address] [address] Nilton Mccall EGFR-AF ARGENTINE >60 Normal >=60 [facility] Comment on above: Performed By: #### P T, PTT #### [facility] [address] [address] [address] Nilton Mccall EGFR-NON AF ARGENTINE >60 Normal >=60 [facility] Comment on above: Performed By: #### P T, PTT #### [facility] [address] [address] [address] Nilton Mccall Glucose [Mass/Vol] 92 mg/dL Normal 74-106 [facility] Comment on above: Performed By: #### P T, PTT #### [facility] [address] [place] [address] Dr. Nilton Mccall Potassium [Moles/Vol] 3.9 mmol/L Normal 3.5-5.1 [facility] Comment on above: Performed By: #### P T, PTT #### [facility] [address] [address] [address] Nilton Mccall Sodium [Moles/Vol] 137 mmol/L Normal 136-145 [facility] Comment on above: Performed By: #### P T, PTT #### [facility] [address] [address] [address] Nilton Mccall Urea nitrogen [Mass/Vol] 14.0 mg/dL Normal 7.0-18.0 [facility] Comment on above: Performed By: #### P T, PTT #### [facility] [address] [address] [address] Nilton Mccall Urea nitrogen/Creatinine [Mass ratio] 14.4 mg/mg Normal [facility] Comment on above: Performed By: #### P T, PTT #### [facility] [address] [place] [address] Dr. Nilton Mccall TSHon 12-12-2021 TSH 0.340 uIU/mL Critically low 0.358-3.74 0 [facility] Comment on above: Performed By: #### P T, PTT #### [facility] [address] [place] [address] Dr. Nilton Mccall VITAMIN D 25 OHon 12-12-2021 VIT D 25-OH 44.3 ng/mL Normal [facility] Comment on above: Performed By: #### P T, PTT #### [facility] [address] [place] [address] Dr. Nilton Mccall VIT D RANGES SEE BELOW Normal [facility] Comment on above: Result Comment: <20 ng/mL Vit D deficient 20 - <30 ng/mL Vit D insufficient 30 - 100 ng/mL Vit D sufficient >100 ng/mL Potential Toxicity Performed By: #### P T, PTT #### [facility] [address] [place] [address] Dr. Nilton Mccall CULTURE URINEon 11-18-2021 CULTURE URINE Culture Observations : HEAVY GROWTH OF MIXED GENITAL CHANCE. NO POTENTIAL PATHOGENS SEEN. Normal [facility] Comment on above: Performed By: #### P T, PTT #### [facility] [address] [place] [address] Dr. Nilton Mccall CBC AUTO DIFFon 11-14-2021 BASO # 0.0 103/ul Normal 0.0-0.1 [facility] Comment on above: Performed By: #### P T, PTT #### [facility] [address] [place] [address] Dr. Nilton Mccall Basophils/100 WBC (Bld) 0.6 % Normal 0.2-2.0 [facility] Comment on above: Performed By: #### P T, PTT #### [facility] [address] [place] [address] Dr. Nilton Mccall EO # 0.2 103/ul Normal 0.0-0.7 [facility] Comment on above: Performed By: #### P T, PTT #### [facility] [address] [place] [address] Dr. Nilton Mccall Eosinophils/100 WBC (Bld) 2.6 % Normal 0.9-7.0 [facility] Comment on above: Performed By: #### P T, PTT #### [facility] [address] [place] [address] Dr. Nilton Mccall Erythrocyte distribution width (RBC) [Ratio] 11.9 % Normal 11.0-15.0 [facility] Comment on above: Performed By: #### P T, PTT #### [facility] [address] [place] [address] Dr. Nilton Mccall Hematocrit (Bld) [Volume fraction] 39.7 % Normal 36.0-48.0 [facility] Comment on above: Performed By: #### P T, PTT #### [facility] [address] [place] [address] Dr. Nilton Mccall Hemoglobin (Bld) [Mass/Vol] 13.8 g/dL Normal 12.0-16.0 [facility] Comment on above: Performed By: #### P T, PTT #### [facility] [address] [place] [address] Dr. Nilton Mccall IG # 0.03 10e3/ul Normal 0.00-0.03 [facility] Comment on above: Performed By: #### P T, PTT #### [facility] [address] [place] [address] Dr. Nilton Mccall IG % 0.5 % Normal 0.0-0.5 [facility] Comment on above: Performed By: #### P T, PTT #### [facility] [address] [place] [address] Dr. Nilton Mccall LYMPH # 1.7 103/ul Normal 1.2-3.8 [facility] Comment on above: Performed By: #### P T, PTT #### [facility] [address] [place] [address] Dr. Nilton Mccall Lymphocytes/100 WBC (Bld) 26.0 % Normal 20.5-60.0 [facility] Comment on above: Performed By: #### P T, PTT #### [facility] [address] [place] [address] Dr. Nilton Mccall MANUAL DIFF REQ NO Normal [facility] Comment on above: Performed By: #### P T, PTT #### [facility] [address] [place] [address] Dr. Nilton Mccall MCH (RBC) [Entitic mass] 29.6 pg Normal 26.7-34.0 [facility] Comment on above: Performed By: #### P T, PTT #### [facility] [address] [place] [address] Dr. Nilton Mccall MCHC (RBC) [Mass/Vol] 34.8 g/dL Normal 29.9-35.2 [facility] Comment on above: Performed By: #### P T, PTT #### [facility] [address] [place] [address] Dr. Nilton Mccall MCV (RBC) [Entitic vol] 85.0 fL Normal 81.0-99.0 [facility] Comment on above: Performed By: #### P T, PTT #### [facility] [address] [place] [address] Dr. Nilton Mccall MONO # 0.3 103/ul Normal 0.3-0.8 [facility] Comment on above: Performed By: #### P T, PTT #### [facility] [address] [place] [address] Dr. Nilton Mccall Monocytes/100 WBC (Bld) 5.1 % Normal 1.7-12.0 [facility] Comment on above: Performed By: #### P T, PTT #### [facility] [address] [place] [address] Dr. Nilton Mccall NEUT # 4.2 103/ul Normal 1.4-6.5 [facility] Comment on above: Performed By: #### P T, PTT #### [facility] [address] [place] [address] Dr. Nilton Mccall Neutrophils/100 WBC (Bld) 65.2 % Normal 43.0-75.0 [facility] Comment on above: Performed By: #### P T, PTT #### [facility] [address] [place] [address] Dr. Nilton Mccall Platelet mean volume (Bld) [Entitic vol] 9.4 fL Critically low 9.5-13.5 [facility] Comment on above: Performed By: #### P T, PTT #### [facility] [address] [place] [address] Dr. Nilton Mcacll PLT 232 103/ul Normal 150-450 [facility] Comment on above: Performed By: #### P T, PTT #### [facility] [address] [place] [address] Dr. Nilton Mccall RBC 4.67 106/ul Normal 4.20-5.40 [facility] Comment on above: Performed By: #### P T, PTT #### [facility] [address] [place] [address] Dr. Nilton Mccall WBC 6.4 103/ul Normal 4.0-11.0 [facility] Comment on above: Performed By: #### P T, PTT #### [facility] [address] [place] [address] ABD/PELVIS WO CONon [...] by: BELÉN ANDRADE Date: 2021-11-14 14:24 Normal [facility] ER URINE PROFILEon 2 Bilirubin Ql (U) Negative Normal NEGATIVE [facility] Comment on above: Performed By: #### C BC #### [facility] [address] [place] [address] Dr. Nilton Mccall Clarity (U) CLEAR Normal CLEAR [facility] Comment on above: Performed By: #### C BC #### [facility] [address] [address] [address] Nilton Mccall Color (U) LT. YELLOW Normal YELLOW [facility] Comment on above: Performed By: #### C BC #### [facility] [address] [address] [address] Nilton SINGLETON A micrscopic examina tion will be performed if indicated. Normal [facility] Comment on above: Performed By: #### C BC #### [facility] [address] [place] [address] Dr. Nilton Mccall Glucose Ql (U) Negative Normal NEGATIVE [facility] Comment on above: Performed By: #### C BC #### [facility] [address] [address] [address] Nilton Mcacll Hemoglobin Ql (U) Negative Normal NEGATIVE [facility] Comment on above: Performed By: #### C BC #### [facility] [address] [place] [address] Dr. Nilton Mccall Ketones Ql (U) Negative Normal NEGATIVE [facility] Comment on above: Performed By: #### C BC #### [facility] [address] [place] [address] Dr. Nilton Mccall LEUKOCYTES Negative Normal NEGATIVE [facility] Comment on above: Performed By: #### C BC #### [facility] [address] [place] [address] Dr. Nilton Mccall Nitrite Ql (U) Negative Normal NEGATIVE [facility] Comment on above: Performed By: #### C BC #### [facility] [address] [place] [address] Dr. Nilton Mccall pH (U) 6.0 [pH] Normal 5-9 [facility] Comment on above: Performed By: #### C BC #### [facility] [address] [place] [address] Dr. Nilton Mccall SPEC GRAVITY 1.025 Normal 1.005-<=1. 025 [facility] Comment on above: Performed By: #### C BC #### [facility] [address] [place] [address] Dr. Nilton Mccall UA PROTEIN Negative Normal NEGATIVE/ TRACE [facility] Comment on above: Performed By: #### C BC #### [facility] [address] [place] [address] Dr. Nilton Mccall UR MICRO IND NOT INDICATED Normal [facility] Comment on above: Performed By: #### C BC #### [facility] [address] [place] [address] Dr. Nilton Mccall Urobilinogen Qn (U) 0.2 {Zarina'U}/dL Normal 0.2 - 1. 0 [facility] Comment on above: Performed By: #### C BC #### [facility] [address] [place] [address] Dr. Nilton Mccall MONOon 11-14-2021 Monocytes (Bld) [#/Vol] Negative Normal NEGATIVE [facility] Comment on above: Performed By: #### P T, PTT #### [facility] [address] [place] [address] Dr. Nilton Mccall PROF 14(COMP METB)on 022 Albumin [Mass/Vol] 3.8 g/dL Normal 3.4-5.0 [facility] Comment on above: Performed By: #### C MP #### [facility] [address] [place] [address] Dr. Nilton Mccall Albumin/Globulin [Mass ratio] 1.2 {ratio} Normal [facility] Comment on above: Performed By: #### C MP #### [facility] [address] [place] [address] Dr. Nilton Mccall ALP [Catalytic activity/Vol] 65 U/L Normal 46-116 [facility] Comment on above: Performed By: #### C MP #### [facility] [address] [address] [address] Nilton Mccall ALT [Catalytic activity/Vol] 29 U/L Normal 14-59 [facility] Comment on above: Performed By: #### C MP #### [facility] [address] [address] [address] Nilton Mccall Anion gap [Moles/Vol] 8.6 mmol/L Normal [facility] Comment on above: Performed By: #### C MP #### [facility] [address] [address] [address] Nilton Mccall AST [Catalytic activity/Vol] 13 U/L Critically low 15-37 [facility] Comment on above: Performed By: #### C MP #### [facility] [address] [place] [address] Dr. Nilton Mccall Bilirubin [Mass/Vol] 0.4 mg/dL Normal 0.2-1.0 [facility] Comment on above: Performed By: #### C MP #### [facility] [address] [address] [address] Nilton Mccall Calcium [Mass/Vol] 8.9 mg/dL Normal 8.5-10.1 [facility] Comment on above: Performed By: #### C MP #### [facility] [address] [address] [address] Nilton Mccall Chloride [Moles/Vol] 106 mmol/L Normal 98-107 [facility] Comment on above: Performed By: #### C MP #### [facility] [address] [address] [address] Nilton Mccall CO2 [Moles/Vol] 26.2 mmol/L Normal 21.0-32.0 [facility] Comment on above: Performed By: #### C MP #### [facility] [address] [address] [address] Nilton Mccall Creatinine [Mass/Vol] 1.12 mg/dL Critically high 0.55-1.02 [facility] Comment on above: Performed By: #### C MP #### [facility] [address] [address] [address] Nilton Mccall EGFR-AF ARGENTINE >60 Normal >=60 [facility] Comment on above: Performed By: #### C MP #### [facility] [address] [address] [address] Nilton Mccall EGFR-NON AF ARGENTINE 55 mL/min/1.73m2 Critically low >=60 [facility] Comment on above: Performed By: #### C MP #### [facility] [address] [address] [address] Nilton Mccall Globulin (S) [Mass/Vol] 3.3 g/dL Normal [facility] Comment on above: Performed By: #### C MP #### [facility] [address] [address] [address] Nilton Mccall Glucose [Mass/Vol] 88 mg/dL Normal 74-106 [facility] Comment on above: Performed By: #### C MP #### [facility] [address] [address] [address] Nilton Mccall Potassium [Moles/Vol] 3.8 mmol/L Normal 3.5-5.1 [facility] Comment on above: Performed By: #### C MP #### [facility] [address] [address] [address] Nilton Mccall Protein [Mass/Vol] 7.1 g/dL Normal 6.4-8.2 [facility] Comment on above: Performed By: #### C MP #### [facility] [address] [address] [address] Nilton Mccall Sodium [Moles/Vol] 137 mmol/L Normal 136-145 [facility] Comment on above: Performed By: #### C MP #### [facility] [address] [address] [address] Nilton Mccall Urea nitrogen [Mass/Vol] 14.0 mg/dL Normal 7.0-18.0 [facility] Comment on above: Performed By: #### C MP #### [facility] [address] [address] [address] Nilton Mccall Urea nitrogen/Creatinine [Mass ratio] 12.5 mg/mg Normal [facility] Comment on above: Performed By: #### C #### [facility] [address] [address] [address] Nilton Mccall MG MAMM DIAGNOSTIC 3D LARS CA Don 10-19-2021 MG MAMM DIAGNOSTIC 3D LARS CAD Patient: LEANA TRAN Exam Date: 10/19/2021 : 1985 Gender:F Ordering : DR CAS DOWELL . Admission #: [id number] Family : Order #: [id number] CLICK HERE TO VIEW EXAM RADIOLOGY REPORT [...] at age 48. LOCATION: [facility] BREAST COMPOSITION: Scattered areas fibroglandular density. [...] 10/19/2021 at 11:10 Normal [facility] US BREAST LARS LIMITEDon 09- US BREAST LARS LIMITED Patient: LEANA TRAN Exam Date: 10/19/2021 : 1985 Gender:F Ordering : DR CAS DOWELL . Admission #: [id number] Family : Order #: [id number] CLICK HERE TO VIEW EXAM RADIOLOGY REPORT [...] at age 48. LOCATION: [facility] BREAST COMPOSITION: Scattered areas fibroglandular density. [...] 10/19/2021 at 11:10 Normal [facility] XR CHEST 2V FRONTAL/LATon [facility] LUNG DIFFUSION CAPACITY (FARHAD O)on 09-27-2021 DLCO (ml/min/mmHg) 22.00 ml/min/mmHg [facility] DLCO/VA (ml/min/mmHg/L) 4.60 ml/min/mmHg/L [facility] DLCOcor (ml/min/mmHg) 21.26 ml/min/mmHg [facility] ERV BOX (L) 0.28 L [facility] SQT86-74% POST (L/S) 2.46 L/S [facility] RAD14-27% PRE (L/S) 2.13 L/S [place] FEV1 PRE (L) 2.83 L [facility] FEV1/FVC POST (%) 74 % [facility] FEV1/FVC PRE (%) 73 % [facility] d [facility] FEV1_POST (L) 2.92 L [facility] FRC Box (L) 1.66 L [facility] FVC POST (L) 3.92 L [facility] FVC PRE (L) 3.89 L [facility] IC BOX (L) 2.36 L [facility] PEF POST (L/S) 5.48 L/S [facility] PEF PRE (L/S) 5.56 L/S [facility] RV Box (L) 1.39 L [facility] RV/TLC Box (%) 32 % [facility] TLC Box (L) 4.36 L [facility] VA (L) 4.78 L [facility] VC (L) BOX 3.51 L [facility] CTA CHEST WO W CONon 022 [...] Date: 2021-09-22 22:30 Normal [facility] PROF CHEM 8 (BAS METB)on Anion gap [Moles/Vol] 5.4 mmol/L Normal [facility] Comment on above: Performed By: #### B MP #### [facility] [address] [address] [address] Nilton Mccall Calcium [Mass/Vol] 9.2 mg/dL Normal 8.5-10.1 [facility] Comment on above: Performed By: #### B MP #### [facility] [address] [address] [address] Nilton Mccall Chloride [Moles/Vol] 102 mmol/L Normal 98-107 [facility] Comment on above: Performed By: #### B MP #### [facility] [address] [address] [address] Nilton Mccall CO2 [Moles/Vol] 26.1 mmol/L Normal 21.0-32.0 [facility] Comment on above: Performed By: #### B MP #### [facility] [address] [place] [address] Dr. Nilton Mccall Creatinine [Mass/Vol] 0.99 mg/dL Normal 0.55-1.02 [facility] Comment on above: Performed By: #### B MP #### [facility] [address] [address] [address] Nilton Mccall EGFR-AF ARGENTINE >60 Normal >=60 [facility] Comment on above: Performed By: #### B MP #### [facility] [address] [address] [address] Nilton Mccall EGFR-NON AF ARGENTINE >60 Normal >=60 [facility] Comment on above: Performed By: #### B MP #### [facility] [address] [address] [address] Nilton Mccall Glucose [Mass/Vol] 113 mg/dL Critically high 74-106 [facility] Comment on above: Performed By: #### B MP #### [facility] [address] [address] [address] Nilton Mccall Potassium [Moles/Vol] 3.5 mmol/L Normal 3.5-5.1 [facility] Comment on above: Performed By: #### B MP #### [facility] [address] [address] [address] Nilton Mccall Sodium [Moles/Vol] 130 mmol/L Critically low 136-145 [facility] Comment on above: Performed By: #### B MP #### [facility] [address] [address] [address] Nilton Mccall Urea nitrogen [Mass/Vol] 13.0 mg/dL Normal 7.0-18.0 [facility] Comment on above: Performed By: #### B MP #### [facility] [address] [address] [address] Nilton Mccall Urea nitrogen/Creatinine [Mass ratio] 13.1 mg/mg Normal [facility] Comment on above: Performed By: #### B MP #### [facility] [address] [address] [address] Nilton Mccall GLYCOHEMOGLOBIN A1Con 2021 ADA RECOMMENDATION SEE BELOW Normal [facility] Comment on above: Result Comment: ADA RECOMMENDED LIMIT 4.0 - 6.0 ADA THERAPEUTIC TARGET < 7.0 ACTION SUGGESTED > 7.0 Performed By: #### C BC #### [facility] [address] [place] [address] Dr. Nilton Mccall Glucose [Mass/Vol] 140 mg/dL Normal [facility] Comment on above: Performed By: #### C BC #### [facility] [address] [place] [address] Dr. Nilton Mccall HbA1c (Bld) [Mass fraction] 6.5 % Critically high 4.5-6.2 [facility] Comment on above: Performed By: #### C BC #### [facility] [address] [address] [address] Nilton Mccall US Pelvis limitedon 08-20-19 IMPRESSION: No inguinal or femoral hernia identified. 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 [id number]_NOT_US E_DIVISION OF RADIOLOGY Provider, [facility] - 08/19/2021 * * *Final Report* * * DATE OF EXAM: Aug 19 2021 1:14PM [facility] [employer] / PROCEDURE REASON: multiple diagnoses [...] IMPRESSION: No inguinal or femoral hernia identified. Iron Worker[facility] Transcribe Date/Time: Aug 19 2021 1:20P Dictated by : LUANNE BRYANT MD This examination was interpreted and the report reviewed and electronically signed by: LUANNE BRYANT MD on Aug 19 2021 2:51PM EST [facility] Radiology Study observation (narrative) [facility] US Pelvis limitedOrdered By: Cc Provider on 08-19-2021 [facility] ECHOon 08-17-2021 Echocardiography Echocardiography Rep ort: Transthoracic Echo [facility] Date of service: 08/17/2021 2:18:31 PM Ordering physician: SAI PEREZ Indication: Hypotension Technologist: Yuni Durbin RD Interpreting physician: Gavin Muse MD PATIENT: Name: [...] * * Final * * * CC [employer] Image : [id number] Normal [facility] LVEF ECHOon 08-17-2021 LV Ejection Fraction 58 % [facility] PAP ACOG PANEL 2: 30 to 65on 08-05-2021 . . Normal [facility] Comment on above: Result Comment: Perf ormed at: WB Performed By: #### P T, PTT #### [facility] [address] [place] [address] [address] [address] Nilton Mccall Age Gdln ACOG Testing 30-65 Normal [facility] Comment on above: Performed By: #### P T, PTT #### [facility] [address] [address] [address] Nilton Mccall DIAGNOSIS: Comment Normal [facility] Comment on above: Result Comment: NEGA TIVE FOR INTRAEPITHELIAL LESION OR MALIGNANCY. Performed at: WB Performed By: #### P T, PTT #### [facility] [address] [address] [address] Nilton Mccall HPV Aptima Negative Normal Negative [facility] Comment on above: Result Comment: This nucleic acid amplification test detects fourteen high-risk HPV types (16,18,31,33,35,39,45,51,52,56,58,59,66,68) without differentiation. Performed at: =G Performed By: #### P T, PTT #### [facility] [address] [place] [address] Dr. Nilton Mccall Methodology: Comment Normal [facility] Comment on above: Result Comment: This liquid based ThinPrep(R) pap test was screened with the use of an image guided system. Performed at: WB Performed By: #### P T, PTT #### [facility] [address] [place] [address] Dr. Nilton Mccall Note: Comment Normal [facility] Comment on above: Result Comment: The Pap [...] #### P T, PTT #### [facility] [address] [address] [address] Nilton Mccall Performed by: Comment Normal [facility] Comment on above: Result Comment: Jay Ellison [employer] Motor Operator (ASCP) Performed at: WB Performed By: #### P T, PTT #### [facility] [address] [address] [address] Nilton Mccall Specimen adequacy: Comment Normal [facility] Comment on above: Result Comment: Sati sfactory for evaluation. No endocervical component is identified. Performed at: WB Performed By: #### P T, PTT #### [facility] [address] [address] [address] Nilton Mccall C3 SerPl-mCncon 07-25-2021 Complement C3 [Mass/Vol] 165 mg/dL Normal 86-166 [facility] Comment on above: Order Comment: Speci men Type: BLOOD SPECIMEN Ordering Facility: [facility] Address: [address] [place] [address] Performed By: #### 4 485-9, 4498-2 #### [facility] CLIA [id number] [address] [place] [address] [place] C4 SerPl-mCncon 07-25-2021 Complement C4 [Mass/Vol] 32 mg/dL Normal 13-46 [facility] Comment on above: Order Comment: Speci men Type: BLOOD SPECIMEN Ordering Facility: [facility] Address: [address] [place] [address] Performed By: #### 4 485-9, 4498-2 #### [facility] CLIA [id number] [address] [place] [address] [place] TRYPTASE BLOODon 07-25-2021 Tryptase [Mass/Vol] 3.4 ug/L Normal <8.4 [facility] Comment on above: Order Comment: Speci men Type: BLOOD SPECIMEN Ordering Facility: [facility] Address: [address] [place] [address] Performed By: #### T RYPT #### [facility] CLIA [id number] [address] [place] [address] [place] ACTH BLDon 07-18-2021 Corticotropin (P) [Mass/Vol] 15.5 pg/mL 7.2 - 63.3 pg/mL [facility] CORTISOL BLDon 07-18-2021 Cortisol [Mass/Vol] 9.9 ug/dL 4.8 - 19 .5 ug/dL [facility] Alpha tocopherol [Mass/Vol]o n 07-07-2021 Beta+gamma tocopherol [Mass/Vol] 3.0 mg/L 0.3 - 3.2 mg/L [facility] VITAMIN E/TOCOPHEROLon 07-07 Alpha tocopherol [Mass/Vol] 13.1 mg/L 6.0 - 23.0 mg/L [facility] ACTH [facility] 07-02-2021 Corticotropin (P) [Mass/Vol] 15.1 pg/mL 7.2 - 63.3 pg/mL [facility] CERULOPLASMIN [facility] 07-02-19 Ceruloplasmin [Mass/Vol] 23 mg/dL 16 - 45 mg/dL [facility] CK CREATINE KINASEon 022 CK [Catalytic activity/Vol] 51 U/L 42 - 196 U/L [facility] CORTISOL [facility] 07-01-2021 Cortisol [Mass/Vol] 7.4 ug/dL 4.8 - 19 .5 ug/dL [facility] DHEA-S [facility] 07-01-2021 DHEA-S [Mass/Vol] 35.9 ug/dL Low 60.9 - 337.0 ug/dL [facility] FERRITIN [facility] 07-01-2021 Ferritin [Mass/Vol] 98.2 ng/mL 14.7 - 205.1 ng/mL [facility] BNPon 06-24-2021 Natriuretic peptide B (Bld) [Mass/Vol] 15.0 pg/mL Normal <=450.0 [facility] Comment on above: Performed By: #### C BC #### [facility] [address] [place] [address] Dr. Nilton Mccall CARDIAC CHAYO 3-6on 2 CK [Catalytic activity/Vol] 60 U/L Normal 26-192 [facility] Comment on above: Performed By: #### C MREP #### [facility] [address] [address] [address] Nilton Mccall CK.MB [Mass/Vol] 0.33 ng/mL Normal <=3.60 [facility] Comment on above: Performed By: #### C MREP #### [facility] [address] [place] [address] Dr. Nilton Mccall HSTROP 4.7 pg/mL Normal 4.0-51.3 [facility] Comment on above: Result Comment: CUT- OFF POINTS HAVE BEEN ESTABLISHED BASED ON THE FOURTH UNIVERSAL DEFINITIONS OF MYOCARDIAL INFARCTION. THE UPPER REFERENCE LIMIT (URL) OF TROPONIN, DEFINED THE 99TH PERCENTILE OF cTnI DISTRIBUTION IN A REFERENCE POPULATION, HAS BEEN CONFIRMED THE DECISION THRESHOLD FOR [place] DIAGNOSIS. Performed By: #### C MREP #### [facility] [address] [place] [address] Dr. Nilton Mccall CARDIAC CHAYO ADMITon 022 CK [Catalytic activity/Vol] 71 U/L Normal 26-192 [facility] Comment on above: Performed By: #### C BC #### [facility] [address] [place] [address] Dr. Nilton Mccall CK.MB [Mass/Vol] 0.50 ng/mL Normal <=3.60 [facility] Comment on above: Performed By: #### C BC #### [facility] [address] [place] [address] Dr. Nilton Mccall HSTROP 3.8 pg/mL Critically low 4.0-51.3 [facility] Comment on above: Result Comment: CUT- OFF POINTS HAVE BEEN ESTABLISHED BASED ON THE FOURTH UNIVERSAL DEFINITIONS OF MYOCARDIAL INFARCTION. THE UPPER REFERENCE LIMIT (URL) OF TROPONIN, DEFINED THE 99TH PERCENTILE OF cTnI DISTRIBUTION IN A REFERENCE POPULATION, HAS BEEN CONFIRMED THE DECISION THRESHOLD FOR WI DIAGNOSIS. Performed By: #### C BC #### [facility] [address] [place] [address] Dr. Nilton Mccall PILI 25 ng/mL Normal 9-82 [facility] Comment on above: Performed By: #### C BC #### [facility] [address] [place] [address] Dr. Nilton Mccall CBC AUTO DIFFon 06-24-2021 BASO # 0.1 103/ul Normal 0.0-0.1 [facility] Comment on above: Performed By: #### C MP #### [facility] [address] [place] [address] Dr. Nilton Mccall Basophils/100 WBC (Bld) 0.6 % Normal 0.2-2.0 [facility] Comment on above: Performed By: #### C MP #### [facility] [address] [address] [address] Nilton Mccall EO # 0.2 103/ul Normal 0.0-0.7 [facility] Comment on above: Performed By: #### C MP #### [facility] [address] [place] [address] Dr. Nilton Mccall Eosinophils/100 WBC (Bld) 2.2 % Normal 0.9-7.0 [facility] Comment on above: Performed By: #### C MP #### [facility] [address] [place] [address] Dr. Nilton Mccall Erythrocyte distribution width (RBC) [Ratio] 11.8 % Normal 11.0-15.0 [facility] Comment on above: Performed By: #### C MP #### [facility] [address] [place] [address] Dr. Nilton Mccall Hematocrit (Bld) [Volume fraction] 43.4 % Normal 36.0-48.0 [facility] Comment on above: Performed By: #### C MP #### [facility] [address] [place] [address] Dr. Nilton Mccall Hemoglobin (Bld) [Mass/Vol] 14.8 g/dL Normal 12.0-16.0 [facility] Comment on above: Performed By: #### C MP #### [facility] [address] [place] [address] Dr. Nilton Mccall IG # 0.04 10e3/ul Critically high 0.00-0.03 [facility] Comment on above: Performed By: #### C MP #### [facility] [address] [place] [address] Dr. Nilton Mccall IG % 0.4 % Normal 0.0-0.5 [facility] Comment on above: Performed By: #### C MP #### [facility] [address] [place] [address] Dr. Nilton Mccall LYMPH # 2.0 103/ul Normal 1.2-3.8 [facility] Comment on above: Performed By: #### C MP #### [facility] [address] [place] [address] Dr. Nilton Mccall Lymphocytes/100 WBC (Bld) 21.5 % Normal 20.5-60.0 [facility] Comment on above: Performed By: #### C MP #### [facility] [address] [place] [address] Dr. Nilton Mccall MANUAL DIFF REQ NO Normal [facility] Comment on above: Performed By: #### C MP #### [facility] [address] [place] [address] Dr. Nilton Mccall MCH (RBC) [Entitic mass] 29.4 pg Normal 26.7-34.0 [facility] Comment on above: Performed By: #### C MP #### [facility] [address] [place] [address] Dr. Nilton Mccall MCHC (RBC) [Mass/Vol] 34.1 g/dL Normal 29.9-35.2 [facility] Comment on above: Performed By: #### C MP #### [facility] [address] [place] [address] Dr. Nilton Mccall MCV (RBC) [Entitic vol] 86.1 fL Normal 81.0-99.0 [facility] Comment on above: Performed By: #### C MP #### [facility] [address] [place] [address] Dr. Nilton Mccall MONO # 0.5 103/ul Normal 0.3-0.8 [facility] Comment on above: Performed By: #### C MP #### [facility] [address] [place] [address] Dr. Nilton Mccall Monocytes/100 WBC (Bld) 5.4 % Normal 1.7-12.0 [facility] Comment on above: Performed By: #### C MP #### [facility] [address] [place] [address] Dr. Nilton Mccall NEUT # 6.3 103/ul Normal 1.4-6.5 [facility] Comment on above: Performed By: #### C MP #### [facility] [address] [place] [address] Dr. Nilton Mccall Neutrophils/100 WBC (Bld) 69.9 % Normal 43.0-75.0 [facility] Comment on above: Performed By: #### C MP #### [facility] [address] [place] [address] Dr. Nilton Mccall Platelet mean volume (Bld) [Entitic vol] 9.6 fL Normal 9.5-13.5 [facility] Comment on above: Performed By: #### C MP #### [facility] [address] [place] [address] Dr. Nilton Mccall PLT 290 103/ul Normal 150-450 [facility] Comment on above: Performed By: #### C MP #### [facility] [address] [place] [address] Dr. Nilton Mccall RBC 5.04 106/ul Normal 4.20-5.40 [facility] Comment on above: Performed By: #### C MP #### [facility] [address] [place] [address] Dr. Nilton Mccall WBC 9.1 103/ul Normal 4.0-11.0 [facility] Comment on above: Performed By: #### C MP #### [facility] [address] [place] [address] STROKE HEAD WOon [...] Date: 2021-06-24 20:56 Normal The [facility] CT STROKE HEAD WO NONCONTRAST CT [...] artifact. Repeat imaging is recommended. 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 Electronically authenticated by: MAREK EPSTEIN Date: 2021-06-24 19:15 Normal [facility] Covid-19 PCR (CVDTB)on 06-06 SARS-CoV-2 (COVID-19) RNA CHRISTI+probe Ql (Unsp spec) Not detected Normal NOT DETECTED [facility] Comment on above: Result Comment: When [...] for this test is supported by the Pharmaceutical Specialty Representative of Health and Human Service's declaration that [...] #### P T, PTT #### [facility] [address] [place] [address] [id number] [address] Nilton Mccall ER URINE PROFILEon 2 Bilirubin Ql (U) Negative Normal NEGATIVE [facility] Comment on above: Performed By: #### E RUR, PREGU #### [facility] [address] [place], [place] [address] Dr. Nilton Mccall Clarity (U) CLEAR Normal CLEAR [facility] Comment on above: Performed By: #### E RUR, PREGU #### [facility] [address] [place] [address] Dr. Nilton Mccall Color (U) YELLOW Normal YELLOW [facility] Comment on above: Performed By: #### E RUR, PREGU #### [facility] [address] [place] [address] Dr. Nilton SINGLETON A micrscopic examina tion will be performed if indicated. Normal [facility] Comment on above: Performed By: #### E RUR, PREGU #### [facility] [address] [place] [address] Dr. Nilton Mccall Glucose Ql (U) Negative Normal NEGATIVE [facility] Comment on above: Performed By: #### E RUR, PREGU #### [facility] [address] [place] [address] Dr. Nilton Mccall Hemoglobin Ql (U) Negative Normal NEGATIVE [facility] Comment on above: Performed By: #### E RUR, PREGU #### [facility] [address] [place] [address] Dr. Nilton Mccall Ketones Ql (U) Negative Normal NEGATIVE [facility] Comment on above: Performed By: #### E RUR, PREGU #### [facility] [address] [place] [address] Dr. Nliton Mccall LEUKOCYTES Negative Normal NEGATIVE [facility] Comment on above: Performed By: #### E RUR, PREGU #### [facility] [address] [place] [address] Dr. Nilton Mccall Nitrite Ql (U) Negative Normal NEGATIVE [facility] Comment on above: Performed By: #### E RUR, PREGU #### [facility] [address] [place] [address] Dr. Nilton Mccall pH (U) 6.0 [pH] Normal 5-9 [facility] Comment on above: Performed By: #### E RUR, PREGU #### [facility] [address] [place] [address] Dr. Nilton Mccall SPEC GRAVITY 1.015 Normal 1.005-<=1. 025 [facility] Comment on above: Performed By: #### E RUR, PREGU #### [facility] [address] [place] [address] Dr. Nilton Mccall UA PROTEIN Negative Normal NEGATIVE/ TRACE [facility] Comment on above: Performed By: #### E RUR, PREGU #### [facility] [address] [place] [address] Dr. Nilton Mccall UR MICRO IND NOT INDICATED Normal [facility] Comment on above: Performed By: #### E RUR, PREGU #### [facility] [address] [place] [address] Dr. Nilton Mccall Urobilinogen Qn (U) 0.2 {Zarina'U}/dL Normal 0.2 - 1. 0 [facility] Comment on above: Performed By: #### E RUR, PREGU #### [facility] [address] [place] [address] Dr. Nilton Mccall LACTATE/LACTIC ACIDon 2021 Lactate [Moles/Vol] 1.0 mmol/L Normal 0.4-1.9 [facility] Comment on above: Performed By: #### P T, PTT #### [facility] [address] [place] [address] Dr. Nilton Mccall LIPASEon 06-24-2021 Lipase [Catalytic activity/Vol] 103.0 U/L Normal 73.0-393.0 [facility] Comment on above: Performed By: #### C BC #### [facility] [address] [place] [address] Dr. Nilton Mccall PH VENOUS BLOODon 06-24-2021 PCO2 VENOUS 29.4 mmHg Critically low 40.0-52.0 [facility] Comment on above: Performed By: #### P T, PTT #### [facility] [address] [place] [address] Dr. Nilton Mccall pH VENOUS 7.478 Critically high 7.330-7.43 0 [facility] Comment on above: Performed By: #### P T, PTT #### [facility] [address] [place] [address] Dr. Nilton Mccall POINT OF CARE GLUCOSEon 06-06 Glucose [Mass/Vol] 107 mg/dL Critically high 74-106 T he [facility] Comment on above: Performed By: #### C MP #### [facility] [address] [place] [address] Dr. Nilton Mccall URon 06-24-2021 , QUAL Negative Normal NEGATIVE [facility] Comment on above: Performed By: #### E RUR, PREGU #### [facility] [address] [place] [address] Dr. Nilton Mccall PROTIMEon 06-24-2021 INR Coag (PPP) [Relative time] 0.99 {INR} Normal [facility] Comment on above: Performed By: #### P T, PTT #### [facility] [address] [place] [address] Dr. Nilton Mccall INR GUIDELINES SEE BELOW Normal [facility] Comment on above: Result Comment: JOSS RED INR: 2.0 - 3.0 CONDITIONS NOT LISTED BELOW 2.5 - 3.5 FOR PROSTHETIC HEART VALVE REPLACEMENT 2.5 - 3.5 RECURRENT THROMBOSIS Performed By: #### P T, PTT #### [facility] [address] [place] [address] Dr. Nilton Mccall PT Coag (PPP) [Time] 10.7 s Normal 9.0-11.6 [facility] Comment on above: Performed By: #### P T, PTT #### [facility] [address] [place] [address] Dr. Nilton Mccall PTTon 06-24-2021 aPTT Coag (Bld) [Time] 32.5 s Normal 22.3-36.2 [facility] Comment on above: Performed By: #### P T, PTT #### [facility] [address] [place] [address] Dr. Nilton Mccall TSHon 06-24-2021 TSH 0.655 uIU/mL Normal 0.358-3.74 0 [facility] Comment on above: Performed By: #### C BC #### [facility] [address] [place] [address] Dr. Nilton Mccall TSH RANGE SEE BELOW Normal [facility] Comment on above: Result Comment: <0.3 4 UIU/ml HYPERTHYROID 0.34-5.60 UIU/ml EUTHYROID >5.60 UIU/ml HYPOTHYROID Performed By: #### C BC #### [facility] [address] [address] [address] Nilton Mccall XR CHEST 1 Von [...] Date: 2021-06-24 19:14 Normal [facility] Basic Metabolic Panelon 05- Anion gap [Moles/Vol] 11 mmol/L 9 - 17 mmol/L [facility] Calcium [Mass/Vol] 9.3 mg/dL 8.6 - 10. 4 mg/dL [facility] Chloride [Moles/Vol] 102 mmol/L 98 - 10 7 mmol/L [facility] CO2 [Moles/Vol] 23 mmol/L 20 - 31 mmol/L [facility] Creatinine [Mass/Vol] 0.78 mg/dL 0.50 - 0.90 mg/dL [facility] GFR >60 >60 mL/min [facility] GFR Non- >60 >60 mL/min [facility] Glucose [Mass/Vol] 160 mg/dL High 70 - 99 mg/dL [facility] Interpretation and review of laboratory results Abnormal [facility] Potassium [Moles/Vol] 3.7 mmol/L 3.7 - 5.3 mmol/L [facility] Sodium [Moles/Vol] 136 mmol/L 135 - 144 mmol/L [facility] Urea nitrogen (BldV) [Mass/Vol] 12 mg/dL 6 - 20 mg/dL [facility] Urea nitrogen/Creatinine (Bld) [Mass ratio] 15 [facility] CBC with Auto Differentialon 06-21-2021 Absolute Eos # 0.21 [facility] th Absolute Immature Granulocyte 0.03 [facility] Absolute Lymph # 2.43 [facility] Absolute Mineral # 0.43 [facility] Basophils (Bld) [#/Vol] 0.05 10*3/uL [facility] Basophils/100 WBC (Bld) 1 % 0 - 2 % [facility] Eosinophils/100 WBC (Bld) 3 % 1 - 4 % [facility] Hematocrit (Bld) [Volume fraction] 41.8 % 36.3 - 47.1 % [facility] Hemoglobin.gastroint estinal spec 1 Ql (Stl) 14.0 g/dL 11.9 - 15.1 g/dL [facility] Immature granulocytes/100 WBC (Bld) 0 % 0 [facility] Interpretation and review of laboratory results Abnormal [facility] Lymphocytes/100 WBC (Bld) 29 % 24 - 43 % [facility] MCH (RBC) [Entitic mass] 29.2 pg 25.2 - 33.5 pg [facility] MCHC (RBC) [Mass/Vol] 33.5 g/dL 28.4 - 34.8 g/dL [facility] MCV (RBC) [Entitic vol] 87.1 fL 82.6 - 102.9 fL [facility] Monocytes/100 WBC (Bld) 5 % 3 - 12 % [facility] NRBC Automated 0.0 0.0 per 100 WBC [facility] Platelet distribution width (Bld) [Ratio] 11.5 % Low 11.8 - 14.4 % [facility] Platelet mean volume (Bld) [Entitic vol] 9.6 fL 8.1 - 13.5 fL [facility] Platelets (Bld) [#/Vol] 264 10*3/uL [facility] RBC (Bld) [#/Vol] 4.80 10*6/uL 3.95 - 5.11 m/uL [facility] Segmented neutrophils/100 WBC (Bld) 62 % 36 - 65 % [facility] Segs Absolute 5.12 [facility] h WBC (Bld) [#/Vol] 8.3 10*3/uL [facility] Laboratory - Chemistry and C hemistry - challengeon 06-21-2021 GFR/1.73 sq M.predicted MDRD (S/P/Bld) [Vol rate/Area] [facility] Comment on above: Average GFR for 30-3 9 years old: 107 mL/min/1.73sq m Chronic Kidney Disease: <60 mL/min/1.73sq m Kidney failure: <15 mL/min/1.73sq m eGFR calculated using average adult body mass. Additional eGFR calculator available at: http://www.[employer]/multiple_crcl_2012.htm Stage 1: Some kidney damage normal GFR Stage 2: Mild kidney damage GFR 60-89 Stage 3: Moderate kidney damage GFR 30-59 Stage 4: Severe kidney damage GFR 15-29 Stage 5: Severe kidney damage GFR <15 ESRD - chronic treatment by dialysis or transplant Magnesiumon 06-21-2021 Magnesium [Mass/Vol] 1.8 mg/dL 1.6 - 2 .6 mg/dL [facility] TSHon 06-21-2021 TSH Qn 1.33 m[IU]/L [facility] Troponinon 06-21-2021 Troponin, High Sensitivity <6 0 - 14 ng/L [facility] Comment on above: High Sensitivity Troponin values cannot be compared with other Troponin methodologies. Patients with high levels of Biotin oral intake (i.e >5mg/day) may have falsely decreased Troponin levels. Samples collected within 8 hours of biotin intake may require additional information for diagnosis. [facility] XR CHEST PORTABLEon 06-22-19 No acute cardiopulmo nary disease. [facility] EXAMINATION: ONE XRAY VIEW OF THE CHEST 06/21/2021 12:52 am COMPARISON: 05/20/2021 HISTORY: ORDERING SYSTEM PROVIDED HISTORY: chest pain TECHNOLOGIST PROVIDED HISTORY: chest pain FINDINGS: Heart size and configuration are normal. Hilar and mediastinal structures are unremarkable. The lungs are clear. No pneumothorax or pleural fluid. No acute bone finding. [facility] Armando Stern MD - 06/21/2021 EXAMINATION: ONE XRAY VIEW OF THE CHEST 06/21/2021 12:52 am COMPARISON: 05/20/2021 HISTORY: ORDERING SYSTEM PROVIDED HISTORY: chest pain TECHNOLOGIST PROVIDED HISTORY: chest pain FINDINGS: Heart size and configuration are normal. Hilar and mediastinal structures are unremarkable. The lungs are clear. No pneumothorax or pleural fluid. No acute bone finding. IMPRESSION: No acute cardiopulmonary disease. [employer] Work Phone: Radiology Study observation (narrative) [employer] Phone: XR CHEST PORTABLEOrdered By: Armando Stern on 06-21-2021 [employer] Phone: [facility] 06-16-2021 [facility] HNO ID: [id number] Author: RT Geovanna(R) Service: ? Author Type: [...] Head: Multiple Sclerosis SIGNATURE: Evelyn Montaño, RT(R), RT Geovanna(R) PATIENT NAME: Leana Tran DATE: June 16, 2021 TIME: 11:05 AM [facility] MRI BRAIN WO/W IVCONon 06-16 MRI BRAIN WO/W IVCON * * *Final Report* * * DATE OF EXAM: Jun 16 2021 11:27AM [facility] [id number] - MRI BRAIN WO/W IVCON [...] of the brain with and without contrast. Iron [facility] Transcribe Date/Time: Jun 16 2021 11:31A Dictated by : ANNA BOLAND MD This examination was interpreted and the report reviewed and electronically signed by: ANNA BOLAND MD on Jun 16 2021 11:53AM EST [id number] Normal [facility] ACTH [facility] 06-14-2021 Corticotropin (P) [Mass/Vol] 11.6 pg/mL 7.2 - 63.3 pg/mL [facility] Basic Metabolic Panel w/ Ref douglas to [facility] 05-20-2021 Anion gap [Moles/Vol] 11 mmol/L 9 - 17 mmol/L [facility] Calcium [Mass/Vol] 9.1 mg/dL 8.6 - 10. 4 mg/dL [facility] Chloride [Moles/Vol] 103 mmol/L 98 - 10 7 mmol/L [facility] CO2 [Moles/Vol] 23 mmol/L 20 - 31 mmol/L [facility] Creatinine [Mass/Vol] 0.74 mg/dL 0.50 - 0.90 mg/dL [facility] GFR >60 >60 mL/min [facility] GFR Non- >60 >60 mL/min [facility] Glucose [Mass/Vol] 101 mg/dL High 70 - 99 mg/dL [facility] Interpretation and review of laboratory results Abnormal [facility] Potassium [Moles/Vol] 3.7 mmol/L 3.7 - 5.3 mmol/L [facility] Sodium [Moles/Vol] 137 mmol/L 135 - 144 mmol/L [facility] Urea nitrogen (BldV) [Mass/Vol] 9 mg/dL 6 - 20 mg/dL [facility] Urea nitrogen/Creatinine (Bld) [Mass ratio] 12 [facility] Brain Natriuretic Peptideon 05-20-2021 Natriuretic peptide B (Bld) [Mass/Vol] 173 pg/mL <300 [facility] Comment on above: An age-independent cutoff point of 300 pg/ml has a 98% negative predictive value excluding acute heart failure. C-Reactive Proteinon 022 CRP [Mass/Vol] mg/L 0.0 - 5.0 mg/L [facility] CBC with Auto Differentialon 05-20-2021 Absolute Eos # 0.18 [facility] th Absolute Immature Granulocyte 0.03 [facility] Absolute Lymph # 1.75 [facility] Absolute Mineral # 0.29 [facility] lth Basophils (Bld) [#/Vol] 0.03 10*3/uL [facility] Basophils/100 WBC (Bld) 0 % 0 - 2 % [facility] Eosinophils/100 WBC (Bld) 3 % 1 - 4 % [facility] Hematocrit (Bld) [Volume fraction] 43.8 % 36.3 - 47.1 % [facility] Hemoglobin.gastroint estinal spec 1 Ql (Stl) 14.6 g/dL 11.9 - 15.1 g/dL [facility] Immature granulocytes/100 WBC (Bld) 0 % 0 [facility] Interpretation and review of laboratory results Abnormal [facility] Lymphocytes/100 WBC (Bld) 25 % 24 - 43 % [facility] MCH (RBC) [Entitic mass] 29.0 pg 25.2 - 33.5 pg [facility] MCHC (RBC) [Mass/Vol] 33.3 g/dL 28.4 - 34.8 g/dL [facility] [employer] MCV (RBC) [Entitic vol] 86.9 fL 82.6 - 102.9 fL [facility] [employer] Monocytes/100 WBC (Bld) 4 % 3 - 12 % [facility] [employer] NRBC Automated 0.0 0.0 per 100 WBC [facility] [employer] Platelet distribution width (Bld) [Ratio] 11.5 % Low 11.8 - 14.4 % [facility] [employer] Platelet mean volume (Bld) [Entitic vol] 9.5 fL 8.1 - 13.5 fL [facility] [employer] Platelets (Bld) [#/Vol] 242 10*3/uL [facility] [employer] RBC (Bld) [#/Vol] 5.04 10*6/uL 3.95 - 5.11 m/uL [facility] [employer] Segmented neutrophils/100 WBC (Bld) 68 % High 36 - 65 % [facility] [employer] Segs Absolute 4.67 [facility] WBC (Bld) [#/Vol] 7.0 10*3/uL [facility] CT ABDOMEN PELVIS WO CONTRAS [...] No suspicious osseous lesions. [facility] Jesus Unger P - 05/20/2021 [...] without evidence of incarceration. 3. Hepatic steatosis [employer] Phone: Radiology Study observation (narrative) [employer] Phone: CT ABDOMEN PELVIS WO CONTRAS T Additional Contrast? NoneOrdered By: Jesus Unger on 05-20-2021 [employer] Phone: D-Dimer, Quantitativeon 05-06 D-Dimer, Quant 0.34 [facility] Comment on above: When combined with a [...] more prevalent in patients with distal DVT. [employer] Drug screen multi urineon Amphetamine Screen, Ur Negative NEGATIVE [facility] Barbiturate Screen, Ur Negative NEGATIVE [facility] Benzodiazepine Screen, Urine Negative NEGATIVE [facility] Buprenorphine Urine Negative NEGATIVE [facility] Cannabinoid Scrn, Ur Negative NEGATIVE [facility] Cocaine Metabolite, Urine Negative NEGATIVE [facility] Methadone Screen, Urine Negative NEGATIVE [facility] Methamphetamine, Urine Negative NEGATIVE [facility] Opiates, Urine Negative NEGATIVE [facility] Oxycodone Screen, Ur Negative NEGATIVE [facility] Phencyclidine, Urine Negative NEGATIVE [facility] Propoxyphene, Urine Negative NEGATIVE [facility] Tricyclic Antidepressants, Urine Negative NEGATIVE [facility] Comment on above: Drug screen results are to be used for medical purposes only. All positive results are unconfirmed. Testing for employment or legal uses should be sent to a reference laboratory for confirmation. [employer] EKG 12 LeadOrdered By: Gosia riosad on 05-20-2021 Atrial Rate 51 BPM [employer] Work Phone: P [place] 56 degrees [employer] Work Phone: P-R Interval 152 ms [employer] Work Phone: Q-T Interval 448 ms [employer] Work Phone: QRS Duration 90 ms [employer] Work Phone: QTc Calculation (Bazett) 412 ms [employer] Work Phone: R [place] 79 degrees [employer] Work Phone: T [place] 62 degrees [employer] Phone: Ventricular Rate 51 BPM [employer] Work Phone: [employer] Work Phone: EKG 12 Leadon 05-20-2021 Sinus bradycardia wi th sinus arrhythmia T wave abnormality, consider anterior ischemia Abnormal ECG When compared with ECG of 16-APR-2021 20:11, No significant change was found Confirmed by Gosia Rangel MD ([id number]) on 05/20/2021 6:51:52 PM [facility] RADIOLOG[facility] Gosia Rangel MD - 05/20/2021 Sinus bradycardia with sinus arrhythmia T wave abnormality, consider anterior ischemia Abnormal ECG When compared with ECG of 16-APR-2021 20:11, No significant change was found Confirmed by Gosia Rangel MD ([id number]) on 05/20/2021 6:51:52 PM [employer] Work Phone: Laboratory - Chemistry and C hemistry - challengeon 05-20-2021 GFR/1.73 sq M.predicted MDRD (S/P/Bld) [Vol rate/Area] [employer] Comment on above: Average GFR for 30-3 9 years old: 107 mL/min/1.73sq m Chronic Kidney Disease: <60 mL/min/1.73sq m Kidney failure: <15 mL/min/1.73sq m eGFR calculated using average adult body mass. Additional eGFR calculator available at: http://www.[employer]/multiple_crcl_2012.htm Stage 1: Some kidney damage normal GFR Stage 2: Mild kidney damage GFR 60-89 Stage 3: Moderate kidney damage GFR 30-59 Stage 4: Severe kidney damage GFR 15-29 Stage 5: Severe kidney damage GFR <15 ESRD - chronic treatment by dialysis or transplant Lactic Acidon 05-20-2021 Lactate [Moles/Vol] 0.9 mmol/L 0.5 - 2. 2 mmol/L [facility] Lipaseon 05-20-2021 Lipase [Catalytic activity/Vol] 46 U/L 13 - 60 U/L [facility] Microscopic Urinalysison - [facility] Bacteria, UA TRACE Abnormal None [facility] Epithelial Cells UA 0 TO 2 [facility] Interpretation and review of laboratory results Abnormal [facility] RBC, UA None [facility] WBC, UA None [facility] No Panel Informationon 05-20 [facility] Sedimentation Rateon 022 Sed Rate 9 [facility] TSH with Reflexon 05-20-2021 TSH Qn 1.20 m[IU]/L [facility] Troponinon 05-20-2021 Troponin, High Sensitivity <6 0 - 14 ng/L [facility] Comment on above: High Sensitivity Troponin values cannot be compared with other Troponin methodologies. Patients with high levels of Biotin oral intake (i.e >5mg/day) may have falsely decreased Troponin levels. Samples collected within 8 hours of biotin intake may require additional information for diagnosis. [facility] Troponin, High Sensitivity <6 0 - 14 ng/L [facility] Comment on above: High Sensitivity Troponin values cannot be compared with other Troponin methodologies. Patients with high levels of Biotin oral intake (i.e >5mg/day) may have falsely decreased Troponin levels. Samples collected within 8 hours of biotin intake may require additional information for diagnosis. Urinalysis with Reflex to Cu ltureon 05-20-2021 Bilirubin Urine Negative NEGATIVE [facility] Color, UA Yellow Yellow [facility] Glucose, Ur Negative NEGATIVE [facility] Interpretation and review of laboratory results Abnormal [facility] Ketones Ql (U) Negative NEGATIVE [facility] Leukocyte esterase Test strip Ql (U) Negative NEGATIVE [facility] Nitrite, Urine Negative NEGATIVE [facility] pH, UA 6.0 [facility] Protein, UA Negative NEGATIVE [facility] Specific [place], UA <1.005 Low [facility] Turbidity UA Clear Clear [facility] Urine Hgb Negative NEGATIVE [facility] Urobilinogen, Urine Normal Normal [facility] XR CHEST PORTABLEon 05-21-19 No abnormalities not ed. [facility] RIS CONSOLIDATED EXAMINATION: ONE XRAY VIEW OF THE CHEST 05/20/2021 1:33 pm COMPARISON: 04/16/2021 HISTORY: ORDERING SYSTEM PROVIDED HISTORY: chest pain TECHNOLOGIST PROVIDED HISTORY: chest pain FINDINGS: The lungs appear clear. The heart and mediastinal structures are unremarkable. Bony thorax appears normal. Visualized upper abdomen is unremarkable. [facility] CONSOLIDATED Yoel Shabazz MD - 05/20/2021 EXAMINATION: ONE XRAY VIEW OF THE CHEST 05/20/2021 1:33 pm COMPARISON: 04/16/2021 HISTORY: ORDERING SYSTEM PROVIDED HISTORY: chest pain TECHNOLOGIST PROVIDED HISTORY: chest pain FINDINGS: The lungs appear clear. The heart and mediastinal structures are unremarkable. Bony thorax appears normal. Visualized upper abdomen is unremarkable. IMPRESSION: No abnormalities noted. [employer] Work Phone: Radiology Study observation (narrative) [employer] Phone: XR CHEST PORTABLEOrdered By: Yoel Shabazz on 05-20-2021 [facility] [employer] [place] Phone: Basic Metabolic Panel w/ Ref douglas to MGon 04-16-2021 Anion gap [Moles/Vol] 11 mmol/L 9 - 17 mmol/L [facility] Calcium [Mass/Vol] 9.8 mg/dL 8.6 - 10. 4 mg/dL [facility] Chloride [Moles/Vol] 99 mmol/L 98 - 10 7 mmol/L [facility] CO2 [Moles/Vol] 24 mmol/L 20 - 31 mmol/L [facility] Creatinine [Mass/Vol] 0.85 mg/dL 0.50 - 0.90 mg/dL [facility] GFR >60 >60 mL/min [facility] GFR Non- >60 >60 mL/min [facility] Glucose [Mass/Vol] 97 mg/dL 70 - 99 mg/dL [facility] Interpretation and review of laboratory results Abnormal [facility] Potassium [Moles/Vol] 3.8 mmol/L 3.7 - 5.3 mmol/L [facility] Sodium [Moles/Vol] 134 mmol/L Low 135 - 144 mmol/L [facility] Urea nitrogen (BldV) [Mass/Vol] 9 mg/dL 6 - 20 mg/dL [facility] Urea nitrogen/Creatinine (Bld) [Mass ratio] 11 [facility] C-Reactive Proteinon 022 CRP [Mass/Vol] mg/L 0.0 - 5.0 mg/L [facility] CBC with Auto Differentialon 04-16-2021 Absolute Eos # 0.19 [facility] th Absolute Immature Granulocyte 0.03 [facility] Absolute Lymph # 2.01 [facility] Absolute Mineral # 0.47 [facility] lt Basophils (Bld) [#/Vol] 0.05 10*3/uL [facility] Basophils/100 WBC (Bld) 1 % 0 - 2 % [facility] Eosinophils/100 WBC (Bld) 2 % 1 - 4 % [facility] Hematocrit (Bld) [Volume fraction] 44.1 % 36.3 - 47.1 % [facility] Hemoglobin.gastroint estinal spec 1 Ql (Stl) 14.9 g/dL 11.9 - 15.1 g/dL [facility] Immature granulocytes/100 WBC (Bld) 0 % 0 [facility] Interpretation and review of laboratory results Abnormal [facility] Lymphocytes/100 WBC (Bld) 22 % Low 24 - 43 % [facility] MCH (RBC) [Entitic mass] 29.2 pg 25.2 - 33.5 pg [facility] MCHC (RBC) [Mass/Vol] 33.8 g/dL 28.4 - 34.8 g/dL [facility] MCV (RBC) [Entitic vol] 86.5 fL 82.6 - 102.9 fL [facility] Monocytes/100 WBC (Bld) 5 % 3 - 12 % [facility] NRBC Automated 0.0 0.0 per 100 WBC [employer] Platelet distribution width (Bld) [Ratio] 11.4 % Low 11.8 - 14.4 % [employer] Platelet mean volume (Bld) [Entitic vol] 9.5 fL 8.1 - 13.5 fL [facility] [employer] Platelets (Bld) [#/Vol] 265 10*3/uL [facility] [employer] RBC (Bld) [#/Vol] 5.10 10*6/uL 3.95 - 5.11 m/uL [facility] [employer] Segmented neutrophils/100 WBC (Bld) 70 % High 36 - 65 % [facility] [employer] Segs [facility] 6.34 [facility] WBC (Bld) [#/Vol] 9.1 10*3/uL [facility] CT ABDOMEN PELVIS WO CONTRAS [...] lumbosacral facets and at the sacroiliac joints. [facility] Michael Ewing - 04/16 EXAMINATION: CT OF [...] the liver. Previous cholecystectomy without biliary dilatation. [employer] Phone: Radiology Study observation (narrative) [employer] Phone: CT ABDOMEN PELVIS WO CONTRAS T Additional Contrast? NoneOrdered By: Michael Frausto on 04-16-2021 [employer] Phone: D-Dimer, Quantitativeon 04-05 [employer], Quant 0.37 [facility] Comment on above: When combined with a [...] more prevalent in patients with distal DVT. [employer] Hepatic Function Panelon Albumin [Mass/Vol] 4.7 g/dL 3.5 - 5.2 g/dL [employer] Albumin/Globulin [Mass ratio] 1.8 {ratio} [facility] [employer] ALP (Bld) [Catalytic activity/Vol] 73 U/L 35 - 104 U/L [employer] ALT [Catalytic activity/Vol] 24 U/L 5 - 33 U/L [employer] AST [Catalytic activity/Vol] 14 U/L <32 [facility] [employer] Bilirubin [Mass/Vol] 0.35 mg/dL 0.3 - 1 .2 mg/dL [facility] [employer] Bilirubin, Indirect Can not be calculated 0.00 - 1.00 mg/dL [facility] [employer] Bilirubin.indirect [Mass/Vol] mg/dL <0.31 mg/dL [facility]/Total PSA [Mass fraction] 7.3 g/dL 6.4 - 8.3 g/dL [facility] Laboratory - Chemistry and C hemistry - challengeon 04-16-2021 GFR/1.73 sq M.predicted MDRD (S/P/Bld) [Vol rate/Area] [facility] Comment on above: Average GFR for 30-3 9 years old: 107 mL/min/1.73sq m Chronic Kidney Disease: <60 mL/min/1.73sq m Kidney failure: <15 mL/min/1.73sq m eGFR calculated using average adult body mass. Additional eGFR calculator available at: http://www.[employer]/multiple_crcl_2012.htm Stage 1: Some kidney damage normal GFR Stage 2: Mild kidney damage GFR 60-89 Stage 3: Moderate kidney damage GFR 30-59 Stage 4: Severe kidney damage GFR 15-29 Stage 5: Severe kidney damage GFR <15 ESRD - chronic treatment by dialysis or transplant Lipaseon 04-16-2021 Lipase [Catalytic activity/Vol] 29 U/L 13 - 60 U/L [facility] Microscopic Urinalysison - [facility] Bacteria, UA 2+ Abnormal None [facility] Epithelial Cells UA 2 TO 5 [facility] Interpretation and review of laboratory results Abnormal [facility] RBC, UA 0 TO 2 [facility] WBC, UA 2 TO 5 [facility] No Panel Informationon 04-16 [facility] , Urineon Beta HCG ( test) Ql (U) Negative NEGATIVE [facility] Comment on above: Specimens with hCG l evels near the threshold of the test (25 mIU/mL) may give a negative or indeterminate result. In such cases, another test should be performed with a new specimen in 48-72 hours. If early is suspected clinically in this setting, correlation with quantitative serum b-hCG level is suggested. [employer] has confirmed the use of plasma for this test. This has not been cleared or approved by the U.S. Food and Drug Administration. The FDA has determined that such clearance is not necessary. [facility] Sedimentation Rateon 022 Sed Rate 13 mm 0 - 20 mm [facility] Troponinon 04-16-2021 Troponin, High Sensitivity <6 0 - 14 ng/L [facility] Comment on above: High Sensitivity Troponin values cannot be compared with other Troponin methodologies. Patients with high levels of Biotin oral intake (i.e >5mg/day) may have falsely decreased Troponin levels. Samples collected within 8 hours of biotin intake may require additional information for diagnosis. [facility] Urinalysis with Reflex to Cu ltureon 04-16-2021 Bilirubin Urine Negative NEGATIVE [facility] Color, UA Yellow Yellow [facility] Glucose, Ur Negative NEGATIVE [facility] Interpretation and review of laboratory results Abnormal [facility] Ketones Ql (U) Negative NEGATIVE [facility] Leukocyte esterase Test strip Ql (U) TRACE Abnormal NEGATIVE [facility] Nitrite, Urine Negative NEGATIVE [facility] pH, UA 6.0 [facility] Protein, UA Negative NEGATIVE [facility] Specific [place], UA 1.015 [facility] Turbidity UA Clear Clear [facility] Urine Hgb Negative NEGATIVE [facility] Urobilinogen, Urine Normal Normal [facility] XR CHEST 1 VIEWon 04-16-2021 [...] No significant thoracic osseous abnormality. [facility] RIS CONSOLIDATED Christy Becerra MD - 04/16/2021 [...] IMPRESSION: Clear lungs. No acute cardiopulmonary abnormality. [employer] Phone: Radiology Study observation (narrative) [employer] Phone: XR CHEST 1 VIEWOrdered By: Arsenio Becerra on 04-16-2021 [employer] Phone: PULMONARY FUNCTION (450)on 0 03-07-2021 PULMONARY FUNCTION (450) [place] [address] PULMONARY FUNCTION PATIENT NAME: LEANA TRAN : 1985 MED REC NO: [id number] ROOM: ACCOUNT NO: [id number] ADMIT DATE: 03/07/2021 PROVIDER: Moris Alvarado DATE [...] 79% of predicted. MORIS ERIC [id number] Doc#: [id number] CC: Normal [facility] [id number] 03-07-2021 SARS-CoV-2 (COVID-19) RNA CHRISTI+probe Ql (Unsp spec) Not detected Normal NOTDET [facility] Comment on above: Result Comment: Rapid [...] management decisions. Fact sheet for Healthcare Providers: https://www.fda.gov/media/824041/download Fact sheet for Patients: https://www.fda.gov/media/602893/download Methodology: Isothermal Nucleic Acid Amplification Performed By: #### C OVRB #### [facility] [address] [place] [address] [employer] Specialist: Belén Dale MD Basic Metabolic Panel w/ Ref douglas to MGOrdered By: Araseli Barrett on 11-01-2020 Anion gap [Moles/Vol] 19 mmol/L High 9 - 17 mmol/L [employer] Phone: Calcium [Mass/Vol] 9.4 mg/dL 8.6 - 10. 4 mg/dL [employer] Phone: Chloride [Moles/Vol] 94 mmol/L Low 98 - 10 7 mmol/L [employer] Phone: CO2 [Moles/Vol] 20 mmol/L 20 - 31 mmol/L [employer] Phone: Creatinine [Mass/Vol] 1.2 mg/dL High 0.50 - 0.90 mg/dL [employer] Phone: GFR >60 >60 mL/min [employer] Phone: GFR Non- 51 mL/min Low >60 [employer] Phone: Glucose [Mass/Vol] 217 mg/dL High 70 - 99 mg/dL [employer] Phone: Interpretation and review of laboratory results Abnormal [employer] Phone: Potassium [Moles/Vol] 3.5 mmol/L Low 3.7 - 5.3 mmol/L [employer] Phone: Sodium [Moles/Vol] 133 mmol/L Low 135 - 144 mmol/L [employer] Phone: Urea nitrogen (BldV) [Mass/Vol] 10 mg/dL 6 - 20 mg/dL [employer] Work Phone: Urea nitrogen/Creatinine (Bld) [Mass ratio] 8 Low [employer] Work Phone: [employer] Work Phone: CBC Auto DifferentialOrdered By: Araseli Barrett on 11-01-2020 Absolute Eos # <0.03 [facility] Work Phone: Absolute Immature Granulocyte 0.33 High [employer] Work Phone: Absolute Lymph # 0.80 Low [facility] Work Phone: Absolute Mineral # 0.42 [facility] Work Phone: Basophils (Bld) [#/Vol] 10*3/uL [employer] Work Phone: Basophils/100 WBC (Bld) 0 % 0 - 2 % [employer] Work Phone: Differential Type NOT REPORTED [employer] Phone: Eosinophils/100 WBC (Bld) 0 % Low 1 - 4 % [employer] Phone: Hematocrit (Bld) [Volume fraction] 42.8 % 36.3 - 47.1 % [employer] Phone: Hemoglobin.gastroint estinal spec 1 Ql (Stl) 14.7 g/dL 11.9 - 15.1 g/dL [employer] Phone: Immature granulocytes/100 WBC (Bld) 4 % High 0 [employer] Work Phone: Interpretation and review of laboratory results Abnormal [employer] Phone: Lymphocytes/100 WBC (Bld) 9 % Low 24 - 43 % [employer] Phone: MCH (RBC) [Entitic mass] 30.1 pg 25.2 - 33.5 pg [facility] Work Phone: MCHC (RBC) [Mass/Vol] 34.3 g/dL 28.4 - 34.8 g/dL [employer] Phone: MCV (RBC) [Entitic vol] 87.5 fL 82.6 - 102.9 fL [employer] Phone: Monocytes/100 WBC (Bld) 5 % 3 - 12 % [employer] Work Phone: NRBC Automated 0.0 0.0 per 100 WBC [employer] Phone: Platelet distribution width (Bld) [Ratio] 11.4 % Low 11.8 - 14.4 % [employer] Phone: Platelet Estimate NOT REPORTED [employer] Phone: Platelet mean volume (Bld) [Entitic vol] 9.4 fL 8.1 - 13.5 fL [employer] Phone: Platelets (Bld) [#/Vol] 207 10*3/uL [employer] Phone: RBC (Bld) [#/Vol] 4.89 10*6/uL 3.95 - 5.11 m/uL [employer] Work Phone: RBC (Bld) [#/Vol] NOT REPORTED [employer] Phone: Segmented neutrophils/100 WBC (Bld) 82 % High 36 - 65 % [employer] Work Phone: Segs Absolute 7.82 [employer] Work Phone: WBC (Bld) [#/Vol] 9.4 10*3/uL [employer] Work Phone: WBC (Bld) [#/Vol] NOT REPORTED [employer] Work Phone: [employer] Work Phone: D-Dimer, QuantitativeOrdered By: Araseli Barrett on 11-01-2020 [employer], Quant <0.27 [employer] Work Phone: Comment on above: When combined [...] more prevalent in patients with distal DVT. [employer] Phone: Laboratory - Chemistry and C hemistry - challengeOrdered By: Araseli Barrett on 11-01-2020 GFR/1.73 sq M.predicted MDRD (S/P/Bld) [Vol rate/Area] [employer] Phone: Comment on above: Average GFR for 30-3 9 years old: 107 mL/min/1.73sq m Chronic Kidney Disease: <60 mL/min/1.73sq m Kidney failure: <15 mL/min/1.73sq m eGFR calculated using average adult body mass. Additional eGFR calculator available at: http://www.[employer]/multiple_crcl_2012.htm Stage 1: Some kidney damage normal GFR Stage 2: Mild kidney damage GFR 60-89 Stage 3: Moderate kidney damage GFR 30-59 Stage 4: Severe kidney damage GFR 15-29 Stage 5: Severe kidney damage GFR <15 ESRD - chronic treatment by dialysis or transplant MagnesiumOrdered By: Araseli Barrtet on 11-01-2020 Magnesium [Mass/Vol] 1.6 mg/dL 1.6 - 2 .6 mg/dL [employer] Phone: [employer] Phone: TroponinOrdered By: Araseli Barrett on 11-01-2020 Troponin Interp NOT REPORTED [facility] Work Phone: Troponin T NOT REPORTED <0.03 ng/mL [employer] Phone: Troponin, High Sensitivity <6 0 - 14 ng/L [employer] Phone: Comment on above: High Sensitivity Troponin values cannot be compared with other Troponin methodologies. Patients with high levels of Biotin oral intake (i.e >5mg/day) may have falsely decreased Troponin levels. Samples collected within 8 hours of biotin intake may require additional information for diagnosis. [employer] Phone: XR CHEST PORTABLEOrdered By: Araseli Barrett on 11-01-2020 Negative chest. [facility] Work Phone: EXAMINATION: ONE XRA Y VIEW OF THE CHEST 11/01/2020 2:31 pm COMPARISON: 12/08/2014 HISTORY: ORDERING SYSTEM PROVIDED HISTORY: cough FINDINGS: The lungs are without acute focal process. No effusion or pneumothorax. The cardiomediastinal silhouette is normal. The osseous structures are intact without acute process. [employer] Phone: Oswaldo, Mhpn Incoming R adiant Results From [employer] - 11/01/2020 2:41 PM EDT EXAMINATION: ONE XRAY VIEW OF THE CHEST 11/01/2020 2:31 pm COMPARISON: 12/08/2014 HISTORY: ORDERING SYSTEM PROVIDED HISTORY: cough FINDINGS: The lungs are without acute focal process. No effusion or pneumothorax. The cardiomediastinal silhouette is normal. The osseous structures are intact without acute process. IMPRESSION: Negative chest. [employer] Phone: [employer] Phone: Feroz 09-15-2020 CNPN Telephone (NEADFV) LEANA TRAN ([id number]) 1985 F Date Time Provider Department 09/15/20 LIS MORAES NEADFV During your visit today, we recorded the following information about you: Demi Santos 09/15/2020 4:44 PM Signed Received MRI Brain report by fax from [facility]. Scanned to patient's chart. Savanna Juarez [...] Reason for Visit: Received Outside Medical Records [[id number]] Prescriptions as of 11/17/2020 - zonisamide (ZONEGRAN) [...] Status:Closed by DEMI JOHNSON on 11/17/20 Normal [facility] CNOVon 09-06-2020 CNOV Office Visit (NEADFV ) LEANA TRAN ([id number]) 1985 F Date Time Provider Department 09/06/20 2:00 PM LIS MORAESFV During your visit today, we recorded the following information about you: Temperature Pulse Blood pressure Weight 97.8 degrees 67/minute 112/73 102.1 kg Height 1.626 m Lis Moraes MD 09/06/2020 3:10 PM Signed PROGRESS NOTE- HEADACHE SERVICE DATE: September 06, 2020 Location: [facility] neurological institute Participants: patient and provider [...] Contrast [Con (more content not included)... Normal [facility] Vital Signs Date Time Vital Sign Value Performing Clinician Facility 10-28-2024 08:18-0400 Body height 162.6 cm Terri Han MD Work Phone: [facility] 10-28-2024 08:18-0400 Body mass index (BMI) [Ratio] 39.32 kg/m2 Terri Han MD Work Phone: [facility] 10-28-2024 08:18-0400 Body temperature 97.9 [degF] Terri Han MD Work Phone: [facility] 10-28-2024 08:18-0400 Body weight 103.96 kg Terri Han MD Work Phone: [facility] 09-30-2024 08:54-0400 Body height 162.6 cm Margot Limon APRN.CNP Work Phone: [facility] 09-30-2024 08:54-0400 Body mass index (BMI) [Ratio] 39.45 kg/m2 Margot Sonam [employer] Work Phone: [facility] 09-30-2024 08:54-0400 Body temperature 97.5 [degF] Margot Sonam SUPERVISOR [employer] Work Phone: [facility] 09-30-2024 08:54-0400 Body weight 104.3 kg Margot Sonam SUPERVISOR [employer] Work Phone: [facility] 09-30-2024 08:54-0400 Diastolic blood pressure 80 mm[Hg] Margot Sonam SUPERVISOR [employer] Work Phone: [facility] 09-30-2024 08:54-0400 Heart rate 70 /min Margot Sonam SUPERVISOR [employer] Work Phone: [facility] 09-30-2024 08:54-0400 Respiratory rate 16 /min Margot Sonam SUPER[employer]OR [employer] Work Phone: [facility] 09-30-2024 08:54-0400 SaO2% (BldA) [Mass fraction] 100 % Margot Sonam [employer]PER[employer] Work Phone: [facility] 09-30-2024 08:54-0400 Systolic blood pressure 129 mm[Hg] Margot Sonam [employer]PER[employer] Work Phone: [facility] 09-25-2024 15:50-0400 Body height 162.6 cm Cas Dowell MD Work Phone: [facility] 09-25-2024 15:50-0400 Body mass index (BMI) [Ratio] 39.14 kg/m2 Cas Dowell MD Work Phone: [facility] 09-25-2024 15:50-0400 Body temperature 97.5 [degF] Cas Dowell MD Work Phone: [facility] 09-25-2024 15:50-0400 Body weight 103.42 kg Cas Dowell MD Work Phone: [facility] 09-25-2024 15:50-0400 Diastolic blood pressure 84 mm[Hg] Cas Dowell MD Work Phone: [facility] 09-25-2024 15:50-0400 Heart rate 67 /min Cas Dowell MD Work Phone: [facility] 09-25-2024 15:50-0400 Respiratory rate 20 /min Cas Dowell MD Work Phone: [facility] 09-25-2024 15:50-0400 SaO2% (BldA) [Mass fraction] 98 % Cas Dowell MD Work Phone: [facility] 09-25-2024 15:50-0400 Systolic blood pressure 138 mm[Hg] Cas Dowell MD Work Phone: [facility] 09-08-2024 11:44-0400 Body height 162.56 cm Cas Dowell MD Work Phone: [facility] 09-08-2024 11:44-0400 Body mass index (BMI) [Ratio] 38.7 kg/m2 Cas Dowell MD Work Phone: [facility] 09-08-2024 11:44-0400 Body temperature 98.3 [degF] Cas Dowell MD Work Phone: [facility] 09-08-2024 11:44-0400 Body weight 102.51 kg Cas Dowell MD Work Phone: [facility] 09-08-2024 11:44-0400 Diastolic blood pressure 75 mm[Hg] Cas Dowell MD Work Phone: [facility] 09-08-2024 11:44-0400 Heart rate 74 /min Cas Dowell MD Work Phone: [facility] 09-08-2024 11:44-0400 Respiratory rate 16 /min Cas Dowell MD Work Phone: [facility] 09-08-2024 11:44-0400 SaO2% (BldA) [Mass fraction] 99 % Cas Dowell MD Work Phone: [facility] 09-08-2024 11:44-0400 Systolic blood pressure 121 mm[Hg] Cas Dowell MD Work Phone: [facility] 08-22-2024 10:23-0400 Body height 162.6 cm Mth 1 [facility] 08-22-2024 10:23-0400 Body mass index (BMI) [Ratio] 38.28 kg/m2 Mth 1 [facility] 08-22-2024 10:23-0400 Body weight 101.2 kg Mth 1 [facility] 08-22-2024 10:23-0400 Diastolic blood pressure 80 mm[Hg] Mth 1 [facility] 08-22-2024 10:23-0400 Systolic blood pressure 133 mm[Hg] Mth 1 [facility] 08-11-2024 09:23-0400 Body height 162.6 cm Cas Dowell MD Work Phone: [facility] 08-11-2024 09:23-0400 Body mass index (BMI) [Ratio] 38.96 kg/m2 Cas Dowell MD Work Phone: [facility] 08-11-2024 09:23-0400 Body temperature 97.5 [degF] Cas Dowell MD Work Phone: [facility] 08-11-2024 09:23-0400 Body weight 102.97 kg Cas Dowell MD Work Phone: [facility] 08-11-2024 09:23-0400 Diastolic blood pressure 68 mm[Hg] Cas Dowell MD Work Phone: [facility] 08-11-2024 09:23-0400 Heart rate 71 /min Cas Dowell MD Work Phone: [facility] 08-11-2024 09:23-0400 Respiratory rate 20 /min Cas Dowell MD Work Phone: [facility] 08-11-2024 09:23-0400 SaO2% (BldA) [Mass fraction] 99 % Cas Dowell MD Work Phone: [facility] 08-11-2024 09:23-0400 Systolic blood pressure 122 mm[Hg] Cas Dowell MD Work Phone: [facility] 02-27-2024 08:18-0500 Body height 162.6 cm Cas Dowell MD Work Phone: [facility] 02-27-2024 08:18-0500 Body mass index (BMI) [Ratio] 37.76 kg/m2 Cas Dowell MD Work Phone: [facility] 02-27-2024 08:18-0500 Body temperature 97.11 [degF] Cas Dowell MD Work Phone: [facility] 02-27-2024 08:18-0500 Body weight 99.79 kg Cas Dowell MD Work Phone: [facility] 02-27-2024 08:18-0500 Diastolic blood pressure 64 mm[Hg] Cas Dowell MD Work Phone: [facility] 02-27-2024 08:18-0500 Heart rate 77 /min Cas Dowell MD Work Phone: [facility] 02-27-2024 08:18-0500 Respiratory rate 20 /min Cas Dowell MD Work Phone: [facility] 02-27-2024 08:18-0500 SaO2% (BldA) [Mass fraction] 98 % Cas Dowell MD Work Phone: [facility] 02-27-2024 08:18-0500 Systolic blood pressure 120 mm[Hg] Cas Dowell MD Work Phone: [facility] 02-11-2024 09:59-0500 Body height 162.6 cm Cas Dowell MD Work Phone: [facility] 02-11-2024 09:59-0500 Body mass index (BMI) [Ratio] 37.93 kg/m2 Cas Dowell MD Work Phone: [facility] 02-11-2024 09:59-0500 Body temperature 97.5 [degF] Cas Dowell MD Work Phone: [facility] 02-11-2024 09:59-0500 Body weight 100.25 kg Cas Dowell MD Work Phone: [facility] 02-11-2024 09:59-0500 Diastolic blood pressure 68 mm[Hg] Cas Dowell MD Work Phone: [facility] 02-11-2024 09:59-0500 Heart rate 90 /min Cas Dowell MD Work Phone: [facility] 02-11-2024 09:59-0500 Respiratory rate 22 /min Cas Dowell MD Work Phone: [facility] 02-11-2024 09:59-0500 SaO2% (BldA) [Mass fraction] 97 % Cas Dowell MD Work Phone: [facility] 02-11-2024 09:59-0500 Systolic blood pressure 120 mm[Hg] Cas Dowell MD Work Phone: [facility] 01-02-2024 10:07-0500 Body height 162.6 cm Marni Flowers APRN-[employer]AVA [employer] DEVELOPER Work Phone: [facility] 01-02-2024 10:07-0500 Body mass index (BMI) [Ratio] 38.11 kg/m2 Marni Flowers APRN-[employer]BI[employer] DEVELOPER Work Phone: [facility] 01-02-2024 10:07-0500 Body weight 100.7 kg Marni Flowers APRN-JAVA MOBI[employer] DEVELOPER Work Phone: [facility] 01-02-2024 10:07-0500 Diastolic blood pressure 77 mm[Hg] Marni Flowers APRN-[employer]AVA [employer] DEVELOPER Work Phone: [facility] 01-02-2024 10:07-0500 Heart rate 79 /min Marni Flowers SUPERVISOR [employer]AVA [employer]BILE DEVELOPER Work Phone: [facility] 01-02-2024 10:07-0500 Systolic blood pressure 127 mm[Hg] Marni Flowers SUPERVISOR [employer]BI[employer] DEVELOPER Work Phone: [facility] 11-22-2023 09:01-0400 Body mass index (BMI) [Ratio] 38.42 kg/m2 Akila Yao MD Work Phone: [facility] 11-22-2023 09:01-0400 Body weight 101.52 kg Akila Yao MD Work Phone: [facility] 11-22-2023 09:01-0400 Diastolic blood pressure 84 mm[Hg] Akila Yao MD Work Phone: [facility] 11-22-2023 09:01-0400 Heart rate 59 /min Akila Yao MD Work Phone: [facility] 11-22-2023 09:01-0400 Systolic blood pressure 124 mm[Hg] Akila Yao MD Work Phone: [facility] 11-20-2023 11:40-0400 Body mass index (BMI) [Ratio] 38.11 kg/m2 Rubens Glenroy DO Work Phone: [facility] 11-20-2023 11:40-0400 Body weight 100.7 kg Rubens Glenroy DO Work Phone: [facility] 11-20-2023 11:40-0400 Diastolic blood pressure 80 mm[Hg] Rubens Glenroy DO Work Phone: [facility] 11-20-2023 11:40-0400 Systolic blood pressure 120 mm[Hg] Rubens Glenroy DO Work Phone: [facility] 11-07-2023 10:33-0400 Body height 162.6 cm Christy Painting MD Work Phone: [facility] 11-07-2023 10:33-0400 Body mass index (BMI) [Ratio] 37.93 kg/m2 Christy Painting MD Work Phone: [facility] 11-07-2023 10:33-0400 Body weight 100.25 kg Christy Painting MD Work Phone: [facility] 10-10-2023 09:06-0400 Body height 162.6 cm Cas Dowell MD Work Phone: [facility] 10-10-2023 09:06-0400 Body mass index (BMI) [Ratio] 37.76 kg/m2 Cas Dowell MD Work Phone: [facility] 10-10-2023 09:06-0400 Body temperature 97.81 [degF] Cas Dowell MD Work Phone: [facility] 10-10-2023 09:06-0400 Body weight 99.79 kg Cas Dowell MD Work Phone: [facility] 10-10-2023 09:06-0400 Diastolic blood pressure 78 mm[Hg] Cas Dowell MD Work Phone: [facility] 10-10-2023 09:06-0400 Heart rate 82 /min Cas Dowell MD Work Phone: [facility] 10-10-2023 09:06-0400 Respiratory rate 20 /min Cas Dowell MD Work Phone: [facility] 10-10-2023 09:06-0400 SaO2% (BldA) [Mass fraction] 98 % Cas Dowell MD Work Phone: [facility] 10-10-2023 09:06-0400 Systolic blood pressure 122 mm[Hg] Cas Dowell MD Work Phone: [facility] 10-02-2023 14:46-0400 Blood Pressure Location Selma Choe [facility] 10-02-2023 14:46-0400 Body temperature 98.6 [degF] Selma Orzech [facility] 10-02-2023 14:46-0400 Diastolic blood pressure 84 mm[Hg] Selma Orzech [facility] 10-02-2023 14:46-0400 Heart rate 68 /min Selma Orzech [facility] 10-02-2023 14:46-0400 Respiratory rate 16 /min Selma Orzech [facility] 10-02-2023 14:46-0400 Systolic blood pressure 130 mm[Hg] Selma Orzech [facility] 10-01-2023 09:45-0400 Body height 162.6 cm Fuentes Amaral MD Work Phone: [facility] 10-01-2023 09:45-0400 Body mass index (BMI) [Ratio] 37.82 kg/m2 Fuentes Amaral MD Work Phone: [facility] 10-01-2023 09:45-0400 Body temperature 97 [degF] Fuentes Amaral MD Work Phone: [facility] 10-01-2023 09:45-0400 Body weight 100 kg Fuentes Amaral MD Work Phone: [facility] 10-01-2023 09:45-0400 Diastolic blood pressure 84 mm[Hg] Fuentes Amaral MD Work Phone: [facility] 10-01-2023 09:45-0400 Heart rate 71 /min Fuentes Amaral MD Work Phone: [facility] 10-01-2023 09:45-0400 Respiratory rate 16 /min Fuentes Amaral MD Work Phone: [facility] 10-01-2023 09:45-0400 SaO2% (BldA) [Mass fraction] 99 % Fuentes Amaral MD Work Phone: [facility] 10-01-2023 09:45-0400 Systolic blood pressure 123 mm[Hg] Fuentes Amaral MD Work Phone: [facility] 09-26-2023 09:28-0400 Body height 162.6 cm Cas Dowell MD Work Phone: [facility] 09-26-2023 09:28-0400 Body mass index (BMI) [Ratio] 38.11 kg/m2 Cas Dowell MD Work Phone: [facility] 09-26-2023 09:28-0400 Body temperature 97.81 [degF] Cas Dowell MD Work Phone: [facility] 09-26-2023 09:28-0400 Body weight 100.7 kg Cas Dowell MD Work Phone: [facility] 09-26-2023 09:28-0400 Diastolic blood pressure 68 mm[Hg] Cas Dowell MD Work Phone: [facility] 09-26-2023 09:28-0400 Heart rate 63 /min Cas Dowell MD Work Phone: [facility] 09-26-2023 09:28-0400 Respiratory rate 18 /min Cas Dowell MD Work Phone: [facility] 09-26-2023 09:28-0400 SaO2% (BldA) [Mass fraction] 99 % Cas Dowell MD Work Phone: [facility] 09-26-2023 09:28-0400 Systolic blood pressure 122 mm[Hg] Cas Dowell MD Work Phone: [facility] 05-08-2023 08:47-0400 Body mass index (BMI) [Ratio] 36.9 kg/m2 Sarah AMINJAVA MOBILE DEVELOPER [facility] 05-08-2023 08:47-0400 Body weight 97.52 kg Sarah Hiren SUPERVISOR [employer]-JAVA [employer]BILE DEVELOPER Work Phone: [facility] 05-08-2023 08:47-0400 Diastolic blood pressure 87 mm[Hg] Sarah Best SUPERVISOR [employer]AVA [employer]BI[employer] DEVELOPER Work Phone: [facility] 05-08-2023 08:47-0400 Heart rate 63 /min Sarah Hiren SUPERVISOR [employer] DEVELOPER Work Phone: [facility] 05-08-2023 08:47-0400 Systolic blood pressure 134 mm[Hg] Sarah Best SUPERVISOR [employer]BI[employer] DEVELOPER Work Phone: [facility] 10-02-2022 09:29-0400 Body height 162.6 cm Fuentes Amaral MD Work Phone: [facility] 10-02-2022 09:29-0400 Body temperature 97.7 [degF] Fuentes Amaral MD Work Phone: [facility] 10-02-2022 09:29-0400 Body weight 100.15 kg Fuentes Amaral MD Work Phone: [facility] 10-02-2022 09:29-0400 Diastolic blood pressure 79 mm[Hg] Fuentes Amaral MD Work Phone: [facility] 10-02-2022 09:29-0400 Heart rate 58 /min Fuentes Amaral MD Work Phone: [facility] 10-02-2022 09:29-0400 Respiratory rate 16 /min Fuentes Amaral MD Work Phone: [facility] 10-02-2022 09:29-0400 SaO2% (BldA) [Mass fraction] 99 % Fuentes Amaral MD Work Phone: [facility] 10-02-2022 09:29-0400 Systolic blood pressure 140 mm[Hg] Fuentes Amaral MD Work Phone: [facility] 09-05-2022 08:23-0400 Blood Pressure Location LORAINE BURNHAM [facility] 09-05-2022 08:23-0400 Diastolic blood pressure 79 mm[Hg] LORAINE BURNHAM [facility] 09-05-2022 08:23-0400 Heart rate 60 /min LORAINE BURNHAM [facility] 09-05-2022 08:23-0400 Systolic blood pressure 133 mm[Hg] LORAINE BURNHAM [facility] 04-03-2022 10:39-0500 Body height 162.6 cm Fuentes Amaral MD Work Phone: [facility] 04-03-2022 10:39-0500 Body temperature 97.9 [degF] Fuentes Amaral MD Work Phone: [facility] 04-03-2022 10:39-0500 Body weight 99.34 kg Fuentes Amaral MD Work Phone: [facility] 04-03-2022 10:39-0500 Diastolic blood pressure 65 mm[Hg] Fuentes Amaral MD Work Phone: [facility] 04-03-2022 10:39-0500 Heart rate 74 /min Fuentes Amaral MD Work Phone: [facility] 04-03-2022 10:39-0500 Respiratory rate 16 /min Fuentes Amaral MD Work Phone: [facility] 04-03-2022 10:39-0500 SaO2% (BldA) [Mass fraction] 98 % Fuentes Amaral MD Work Phone: [facility] 04-03-2022 10:39-0500 Systolic blood pressure 147 mm[Hg] Fuentes Amaral MD Work Phone: [facility] 02-28-2022 08:30-0500 Blood Pressure Location LORAINE BURNHAM [facility] 02-28-2022 08:30-0500 Diastolic blood pressure 83 mm[Hg] LORAINE TEJ [facility] 02-28-2022 08:30-0500 Heart rate 74 /min LORAINE TEJ [facility] 02-28-2022 08:30-0500 Respiratory rate 16 /min LORAINE TEJ [facility] 02-28-2022 08:30-0500 Systolic blood pressure 121 mm[Hg] LORAINE TEJ [facility] 02-10-2022 14:07-0500 Body height 162.6 cm Fuentes Amaral MD Work Phone: [facility] 02-10-2022 14:07-0500 Body temperature 97.9 [degF] Fuentes Amaral MD Work Phone: [facility] 02-10-2022 14:07-0500 Body weight 98.25 kg Fuentes Amaral MD Work Phone: [facility] 02-10-2022 14:07-0500 Diastolic blood pressure 59 mm[Hg] Fuentes Amaral MD Work Phone: [facility] 02-10-2022 14:07-0500 Heart rate 97 /min Fuentes Amaral MD Work Phone: [facility] 02-10-2022 14:07-0500 Respiratory rate 16 /min Fuentes Amaral MD Work Phone: [facility] 02-10-2022 14:07-0500 SaO2% (BldA) [Mass fraction] 99 % Fuentes Amaral MD Work Phone: [facility] 02-10-2022 14:07-0500 Systolic blood pressure 124 mm[Hg] Fuentes Amaral MD Work Phone: [facility] 2021 08:48-0500 Blood Pressure Location LORAINE BURNHAM [facility] 2021 08:48-0500 Diastolic blood pressure 77 mm[Hg] LORAINE BURNHAM [facility] 2021 08:48-0500 Heart rate 81 /min LORAINE BURNHAM [facility] 2021 08:48-0500 Systolic blood pressure 118 mm[Hg] LORAINE BURNHAM [facility] 11-18-2021 13:44-0400 Body height 162.6 cm Fuentes Amaral MD Work Phone: [facility] 11-18-2021 13:44-0400 Body temperature 97.81 [degF] Fuentes Amaral MD Work Phone: [facility] 11-18-2021 13:44-0400 Body weight 101.24 kg Fuentes Amaral MD Work Phone: [facility] 11-18-2021 13:44-0400 Diastolic blood pressure 73 mm[Hg] Fuentes Amaral MD Work Phone: [facility] 11-18-2021 13:44-0400 Heart rate 66 /min Fuentes Amaral MD Work Phone: [facility] 11-18-2021 13:44-0400 Respiratory rate 16 /min Fuentes Amaral MD Work Phone: [facility] 11-18-2021 13:44-0400 SaO2% (BldA) [Mass fraction] 100 % Fuentes Amaral MD Work Phone: [facility] 11-18-2021 13:44-0400 Systolic blood pressure 121 mm[Hg] Fuentes Amaral MD Work Phone: [facility] 11-03-2021 10:37-0400 Body height 162.6 cm Fuentes Amaral MD Work Phone: [facility] 11-03-2021 10:37-0400 Body temperature 97.59 [degF] Fuentes Amaral MD Work Phone: [facility] 11-03-2021 10:37-0400 Body weight 99.97 kg Fuentes Amaral MD Work Phone: [facility] 11-03-2021 10:37-0400 Diastolic blood pressure 63 mm[Hg] Fuentes Amaral MD Work Phone: [facility] 11-03-2021 10:37-0400 Heart rate 59 /min Fuentes Amaral MD Work Phone: [facility] 11-03-2021 10:37-0400 Respiratory rate 16 /min Fuentes Amaral MD Work Phone: [facility] 11-03-2021 10:37-0400 SaO2% (BldA) [Mass fraction] 99 % Fuentes Amaral MD Work Phone: [facility] 11-03-2021 10:37-0400 Systolic blood pressure 120 mm[Hg] Fuentes Amaral MD Work Phone: [facility] 09-27-2021 08:00-0400 Body height 162.6 cm Diego Rico Work Phone: [facility] 09-27-2021 08:00-0400 Body weight 99.79 kg Diego Rico Work Phone: [facility] 09-21-2021 15:37-0400 Body height 160 cm Ruth Villaseñor MD Work Phone: [facility] 09-21-2021 15:37-0400 Body temperature 97.5 [degF] Ruth Villaseñor MD Work Phone: [facility] 09-21-2021 15:37-0400 Body weight 100.61 kg Ruth Villaseñor MD Work Phone: [facility] 09-21-2021 15:37-0400 Diastolic blood pressure 72 mm[Hg] Ruth Villaseñor MD Work Phone: [facility] 09-21-2021 15:37-0400 Heart rate 72 /min Ruth Villaseñor MD Work Phone: [facility] 09-21-2021 15:37-0400 SaO2% (BldA) [Mass fraction] 97 % Ruth Villaseñor MD Work Phone: [facility] 09-21-2021 15:37-0400 Systolic blood pressure 131 mm[Hg] Ruth Villaseñor MD Work Phone: [facility] 09-19-2021 13:59-0400 Body temperature 98.29 [degF] Landen Mahmood APRN.[employer]AVA [employer]BILE DEVELOPER Work Phone: [facility] 09-19-2021 13:59-0400 Body weight 99.79 kg Landen Mahmood APRN.CNP Work Phone: [facility] 09-19-2021 13:59-0400 Diastolic blood pressure 53 mm[Hg] Landen Mahmood APRN.[employer]BI[employer] DEVELOPER Work Phone: [facility] 09-19-2021 13:59-0400 Heart rate 70 /min Landen Mahmood APRN.[employer]AVA MOBI[employer] DEVELOPER Work Phone: [facility] 09-19-2021 13:59-0400 Respiratory rate 18 /min Landen Mahmood APRN.JAVA MOBILE DEVELOPER Work Phone: [facility] 09-19-2021 13:59-0400 SaO2% (BldA) [Mass fraction] 98 % Landen Mahmood SUPERVISOR [employer].JAVA MOBILE DEVELOPER Work Phone: [facility] 09-19-2021 13:59-0400 Systolic blood pressure 128 mm[Hg] Landen Mahmood SUPERVISOR [employer].J[employer]BI[employer] DEVELOPER Work Phone: [facility] 09-05-2021 15:55-0400 Diastolic blood pressure 50 mm[Hg] Christine Abraham DO Work Phone: [facility] 09-05-2021 15:55-0400 Heart rate 103 /min Christine Abraham DO Work Phone: [facility] 09-05-2021 15:55-0400 Respiratory rate 28 /min Christine Abraham DO Work Phone: [facility] 09-05-2021 15:55-0400 SaO2% (BldA) [Mass fraction] 96 % Christine Abraham DO Work Phone: [facility] 09-05-2021 15:55-0400 Systolic blood pressure 115 mm[Hg] Christine Abraham DO Work Phone: [facility] 09-05-2021 13:29-0400 Body height 162.6 cm Christine Abraham DO Work Phone: [facility] 09-05-2021 13:29-0400 Body mass index (BMI) [Ratio] 37.25 kg/m2 Christine Abraham DO Work Phone: [facility] 09-05-2021 13:29-0400 Body temperature 98.2 [degF] Christine Abraham DO Work Phone: [facility] 09-05-2021 13:29-0400 Body weight 98.43 kg Christine Abraham DO Work Phone: [facility] 08-15-2021 08:54-0400 Body height 162.6 cm Berlin Avila III, MD Work Phone: [facility] 08-15-2021 08:54-0400 Body weight 98.84 kg Berlin Avila III, MD Work Phone: [facility] 08-12-2021 10:00-0400 Body height 162.6 cm [employer] Work Phone: [facility] 08-12-2021 10:00-0400 Body weight 98 kg [employer] Work Phone: [facility] 08-12-2021 10:00-0400 Diastolic blood pressure 72 mm[Hg] [employer] Work Phone: [facility] 08-12-2021 10:00-0400 Heart rate 79 /min [employer] Work Phone: [facility] 08-12-2021 10:00-0400 Systolic blood pressure 108 mm[Hg] [employer]er Work Phone: [facility] 07-25-2021 09:30-0400 Body height 162.6 cm Henny Rushing MD Work Phone: [facility] 07-25-2021 09:30-0400 Body temperature 97.2 [degF] Henny Rushing MD Work Phone: [facility] 07-25-2021 09:30-0400 Body weight 97.48 kg Henny Rushing MD Work Phone: [facility] 07-25-2021 09:30-0400 Diastolic blood pressure 62 mm[Hg] Henny Rushing MD Work Phone: [facility] 07-25-2021 09:30-0400 Heart rate 83 /min Henny Rushing MD Work Phone: [facility] 07-25-2021 09:30-0400 Respiratory rate 14 /min Henny Rushing MD Work Phone: [facility] 07-25-2021 09:30-0400 SaO2% (BldA) [Mass fraction] 99 % Henny Rushing MD Work Phone: [facility] 07-25-2021 09:30-0400 Systolic blood pressure 104 mm[Hg] Henny Rushing MD Work Phone: [facility] 07-22-2021 14:12-0400 Body height 162.6 cm Yan Bass MD Work Phone: [facility] 07-22-2021 14:12-0400 Body temperature 97.5 [degF] Yan Bass MD Work Phone: [facility] 07-22-2021 14:12-0400 Body weight 97.98 kg Yan Bass MD Work Phone: [facility] 07-22-2021 14:12-0400 Diastolic blood pressure 79 mm[Hg] Yan Bass MD Work Phone: [facility] 07-22-2021 14:12-0400 Heart rate 71 /min Yan Bass MD Work Phone: [facility] 07-22-2021 14:12-0400 Respiratory rate 16 /min Yan Bass MD Work Phone: [facility] 07-22-2021 14:12-0400 SaO2% (BldA) [Mass fraction] 97 % Yan Bass MD Work Phone: [facility] 07-22-2021 14:12-0400 Systolic blood pressure 129 mm[Hg] Yan Bass MD Work Phone: [facility] 07-21-2021 13:36-0400 Respiratory rate 20 /min Sai Perez MD Work Phone: [facility] 07-21-2021 13:36-0400 SaO2% (BldA) [Mass fraction] 100 % Sai Perez MD Work Phone: [facility] 07-21-2021 13:29-0400 Diastolic blood pressure 67 mm[Hg] Sai Perez MD Work Phone: [facility] 07-21-2021 13:29-0400 Heart rate 62 /min Sai Perez MD Work Phone: [facility] 07-21-2021 13:29-0400 Systolic blood pressure 130 mm[Hg] Sai Perez MD Work Phone: [facility] 07-14-2021 10:40-0400 Diastolic blood pressure 75 mm[Hg] Aldo Ann MD Work Phone: [facility] 07-14-2021 10:40-0400 Heart rate 74 /min Aldo Ann MD Work Phone: [facility] 07-14-2021 10:40-0400 SaO2% (BldA) [Mass fraction] 98 % Aldo Ann MD Work Phone: [facility] 07-14-2021 10:40-0400 Systolic blood pressure 128 mm[Hg] Aldo Ann MD Work Phone: [facility] 07-06-2021 12:39-0400 Body height 162.6 cm Tracee Mcintyre MD Work Phone: [facility] 07-06-2021 12:39-0400 Body weight 97.52 kg Tracee Mcintyre MD Work Phone: [facility] 07-06-2021 12:39-0400 Diastolic blood pressure 68 mm[Hg] Tracee Mcintyre MD Work Phone: [facility] 07-06-2021 12:39-0400 Heart rate 61 /min Tracee Mcintyre MD Work Phone: [facility] 07-06-2021 12:39-0400 Respiratory rate 16 /min Tracee Mcintyre MD Work Phone: [facility] 07-06-2021 12:39-0400 SaO2% (BldA) [Mass fraction] 99 % Tracee Mcintyre MD Work Phone: [facility] 07-06-2021 12:39-0400 Systolic blood pressure 111 mm[Hg] Tracee Mcintyre MD Work Phone: [facility] 07-01-2021 10:02-0400 Body height 162.6 cm Yan Bass MD Work Phone: [facility] 07-01-2021 10:02-0400 Body temperature 97.59 [degF] Yan Bass MD Work Phone: [facility] 07-01-2021 10:02-0400 Body weight 97.98 kg Yan Bass MD Work [facility]: [facility] [facility] 07-01-2021 10:02-0400 Diastolic blood pressure 97 mm[Hg] Yan Bass MD Work Phone: [facility] 07-01-2021 10:02-0400 Heart rate 87 /min Yan Bass MD Work Phone: [facility] 07-01-2021 10:02-0400 Respiratory rate 16 /min Yan Bass MD Work Phone: [facility] 07-01-2021 10:02-0400 SaO2% (BldA) [Mass fraction] 99 % Yan Bass MD Work Phone: [facility] 07-01-2021 10:02-0400 Systolic blood pressure 138 mm[Hg] Yan Bass MD Work Phone: [facility] 06-27-2021 11:45-0400 Diastolic blood pressure 70 mm[Hg] Peter Knight APRN.JAVA MOBILE DEVELOPER Work Phone: [facility] 06-27-2021 11:45-0400 Heart rate 96 /min Peter Antonia SUPERVISOR [employer]BILE DEVELOPER Work Phone: [facility] 06-27-2021 11:45-0400 Respiratory rate 20 /min Peter Antonia SUPERVISOR [employer] DEVELOPER Work Phone: [facility] 06-27-2021 11:45-0400 SaO2% (BldA) [Mass fraction] 99 % Peter Knight APRN.JAVA MOBILE DEVELOPER Work Phone: [facility] 06-27-2021 11:45-0400 Systolic blood pressure 147 mm[Hg] Peter Mengkhalida SUPERVISOR [employer] DEVELOPER Work Phone: [facility] 06-27-2021 11:30-0400 Body temperature 98.1 [degF] Peter Mengkhalida SUPERVISOR [employer] DEVELOPER Work Phone: [facility] 06-27-2021 10:53-0400 Body height 162.6 cm Peter Knight SUPERVISOR [employer] DEVELOPER Work Phone: [facility] 06-27-2021 10:53-0400 Body weight 95.71 kg Peter Márquezdelmi SUPERVISOR [employer].[facility] Work Phone: [facility] 06-21-2021 01:00-0400 Diastolic blood pressure 84 mm[Hg] Sean Andes DO Work Phone: [facility] [employer] 06-21-2021 01:00-0400 Heart rate 87 /min Sean Andes DO Work Phone: [facility] [employer] 06-21-2021 01:00-0400 Respiratory rate 21 /min Sean Andes DO Work Phone: [facility] [employer] 06-21-2021 01:00-0400 SaO2% (BldA) [Mass fraction] 90 % Sean Andes DO Work Phone: [facility] [employer] 06-21-2021 01:00-0400 Systolic blood pressure 121 mm[Hg] Sean Andes DO Work Phone: [facility] 06-21-2021 00:04-0400 Body temperature 98.6 [degF] Sean Andes DO Work Phone: [facility] 06-14-2021 09:07-0400 Body height 162.6 cm Jackelyn Marques MD Work Phone: [facility] 06-14-2021 09:07-0400 Body weight 96.66 kg Jackelyn Marques MD Work Phone: [facility] 06-14-2021 09:07-0400 Diastolic blood pressure 80 mm[Hg] Jackelyn Marques MD Work Phone: [facility] 06-14-2021 09:07-0400 Heart rate 71 /min Jackelyn Marques MD Work Phone: [facility] 06-14-2021 09:07-0400 Systolic blood pressure 126 mm[Hg] Jackelyn Marques MD Work Phone: [facility] 06-10-2021 09:45-0400 Body height 162.6 cm Yan Bass MD Work Phone: [facility] 06-10-2021 09:45-0400 Body temperature 97.39 [degF] Yan Bass MD Work Phone: [facility] 06-10-2021 09:45-0400 Body weight 97.61 kg Yan Bass MD Work Phone: [facility] 06-10-2021 09:45-0400 Diastolic blood pressure 50 mm[Hg] Yan Bass MD Work Phone: [facility] 06-10-2021 09:45-0400 Heart rate 64 /min Yan Bass MD Work Phone: [facility] 06-10-2021 09:45-0400 Respiratory rate 16 /min Yan Bass MD Work Phone: [facility] 06-10-2021 09:45-0400 SaO2% (BldA) [Mass fraction] 100 % Yan Bass MD Work Phone: [facility] 06-10-2021 09:45-0400 Systolic blood pressure 124 mm[Hg] Yan Bass MD Work Phone: [facility] 06-04-2021 19:43-0400 Diastolic blood pressure 49 mm[Hg] Brian Santana MD Work Phone: [facility] 06-04-2021 19:43-0400 Heart rate 69 /min Brian Santana MD Work Phone: [facility] 06-04-2021 19:43-0400 Respiratory rate 23 /min Brian Santana MD Work Phone: [employer] 06-04-2021 19:43-0400 SaO2% (BldA) [Mass fraction] 92 % Brian Santana MD Work Phone: [employer] 06-04-2021 19:43-0400 Systolic blood pressure 106 mm[Hg] Brian Santana MD Work Phone: [employer] 06-04-2021 16:26-0400 Body mass index (BMI) [Ratio] 36.22 kg/m2 Brian Santana MD Work Phone: [employer] 06-04-2021 16:26-0400 Body temperature 98.4 [degF] Brian Santana MD Work Phone: [employer] 06-04-2021 16:26-0400 Body weight 95.71 kg Brian Santana MD Work Phone: [employer] 05-20-2021 18:43-0400 Diastolic blood pressure 51 mm[Hg] Cas Dowell MD Work Phone: [employer] 05-20-2021 18:43-0400 Heart rate 53 /min Cas Dowell MD Work Phone: [employer] 05-20-2021 18:43-0400 Respiratory rate 16 /min Cas Dowell MD Work Phone: [employer] 05-20-2021 18:43-0400 SaO2% (BldA) [Mass fraction] 96 % Cas Dowell MD Work Phone: [employer] 05-20-2021 18:43-0400 Systolic blood pressure 112 mm[Hg] Cas Dowell MD Work Phone: [employer] 05-20-2021 12:55-0400 Body height 162.6 cm Cas Dowell MD Work Phone: [employer] 05-20-2021 12:55-0400 Body mass index (BMI) [Ratio] 36.22 kg/m2 Cas Dowell MD Work Phone: [employer] 05-20-2021 12:55-0400 Body weight 95.71 kg Cas Dowell MD Work Phone: [employer] 04-16-2021 19:39-0500 Body temperature 97.39 [degF] Mike Stevenson MD [employer] 04-16-2021 19:39-0500 Diastolic blood pressure 89 mm[Hg] Mike Stevenson MD [employer] 04-16-2021 19:39-0500 Heart rate 55 /min Mike Stevenson MD [employer] 04-16-2021 19:39-0500 Respiratory rate 15 /min Mike Stevenson MD [employer] 04-16-2021 19:39-0500 SaO2% (BldA) [Mass fraction] 98 % Mike Stevenson MD [employer] 04-16-2021 19:39-0500 Systolic blood pressure 131 mm[Hg] Mike Stevenson MD [employer] 11-01-2020 17:24-0400 SaO2% (BldA) [Mass fraction] 94 % Araseli Barrett MD Work Phone: [employer] Work Phone: 11-01-2020 16:20-0400 Diastolic blood pressure 73 mm[Hg] Araseli Barrett MD Work Phone: [employer] Work Phone: 11-01-2020 16:20-0400 Systolic blood pressure 142 mm[Hg] Araseli Barrett MD Work Phone: [employer] Work Phone: 11-01-2020 15:48-0400 Body temperature 101.61 [degF] Araseli Barrett MD Work Phone: [employer] Work Phone: 11-01-2020 13:32-0400 Body mass index (BMI) [Ratio] 37.76 kg/m2 Araseli Barrett MD Work Phone: [employer] Work Phone: 11-01-2020 13:32-0400 Body weight 99.79 kg Araseli Barrett MD Work Phone: [employer] Work Phone: 11-01-2020 13:32-0400 Heart rate 91 /min Araseli Barrett MD Work Phone: [employer] Work Phone: 11-01-2020 13:32-0400 Respiratory rate 22 /min Araseli Barrett MD Work Phone: [employer] Work Phone: 06-13-2020 05:10-0400 Diastolic blood pressure 73 mm[Hg] Kody Cm MD Work Phone: [employer] Work Phone: 06-13-2020 05:10-0400 Systolic blood pressure 131 mm[Hg] Kody Cm MD Work Phone: [employer] Work Phone: 06-13-2020 05:09-0400 Body temperature 96.8 [degF] Kody Cm MD Work Phone: [employer] Work Phone: 06-13-2020 05:09-0400 Heart rate 74 /min Kody Cm MD Work Phone: [employer] Work Phone: 06-13-2020 05:09-0400 Respiratory rate 12 /min Kody Cm MD Work Phone: [employer] Work Phone: 06-13-2020 05:09-0400 SaO2% (BldA) [Mass fraction] 97 % Kody Cm MD Work Phone: [employer] Work Phone: Encounters Encounter Date Encounter Type Care Provider Facility Start: 10-15-2025 ambulatory Selma X Дмитрий Holland y:[facility] Start: 11-05-2024 End: 11-05-2024 ambulatory Phillip Thomas MD Facility[facility] Start: 10-30-2024 ambulatory [facility] Start: 10-28-2024 End: 10-28-2024 Office outpatient visit 25 minutes Terri Han MD Work Phone: [facility] Comment on above: Chronic sinusitis (P rimary Dx); Vocal cord dysfunction; Geographic tongue; Hypertrophy of both inferior nasal turbinates; Tympanosclerosis, bilateral; Severe persistent asthma without complication ([facility]) Start: 10-28-2024 End: 10-28-2024 ambulatory TERRI HAN [facility] Start: 10-09-2024 End: 10-09-2024 ambulatory Selma Choe Facility:[facility] Start: 10-09-2024 End: 10-09-2024 Patient encounter procedure Selma X Ormoralesch [facility] Start: 09-30-2024 End: 09-30-2024 Clinisync Result Encounter [...] Start: 09-30-2024 End: 09-30-2024 ambulatory FUENTES AMARAL Facility:[facility] Start: 09-29-2024 End: 09-29-2024 Clinisync Result Encounter Cas Dowell MD Work Phone: [facility] External Department Unsolicited Start: 09-29-2024 End: 09-29-2024 Clinisync Result Encounter Cas Dowell MD Work Phone: [facility] External Department Unsolicited Start: 09-26-2024 ambulatory [facility] Start: 09-25-2024 End: 09-25-2024 Office outpatient visit 25 minutes Cas Dowell MD Work Phone: [facility] Comment on above: Chronic rhinosinusit is (Primary Dx); Right wrist pain; Right forearm pain Start: 09-25-2024 End: 09-25-2024 ambulatory CAS DOWELL Not Available Start: 09-25-2024 End: 09-25-2024 Bamboo flowsheet Cas Dowell MD Work Phone: [facility] Start: 09-25-2024 End: 09-25-2024 [facility] Cas Dowell MD Work Phone: [facility] Start: 09-15-2024 End: 09-15-2024 Refill Marni Lionel SUPERVISOR [employer]AVA [employer]BILE DEVELOPER Work Phone: [facility] Neurology, A Department of [facility] Comment on above: Migraine without aur a and without status migrainosus, not intractable Start: 09-08-2024 End: 09-08-2024 ambulatory Cas Dowell MD Work Phone: [facility] Work Phone: Start: 09-08-2024 End: 09-08-2024 Patient encounter procedure Oliva Becerra SUPERVISOR [employer] [facility] Work Phone: Start: 08-27-2024 ambulatory [facility] Start: 08-22-2024 End: 08-24-2024 [facility] Start: 08-22-2024 End: 08-24-2024 Subsequent hospital visit by physician [address] Non-Invasive Cardiology Comment on above: Edema, unspecified t ype; Palpitations with regular cardiac rhythm Start: 08-21-2024 ambulatory STEPHON CRONIN [facility] Start: 08-12-2024 End: 08-12-2024 ambulatory MACRINA WADSWORTH [facility] Start: 08-11-2024 End: 08-11-2024 Bamboo flowsheet Cas Dowell MD Work Phone: [facility] Start: 08-11-2024 End: 08-11-2024 Bamboo flowsheet Cas Dowell MD Work Phone: [facility] Start: 08-11-2024 End: 08-11-2024 Clinisync Result Encounter Cas Dowell MD Work Phone: [facility] External Department Unsolicited Start: 08-11-2024 End: 08-11-2024 [...] Start: 08-11-2024 End: 08-11-2024 Refill Marni Flowers APRN-JAVA MOBILE DEVELOPER Work Phone: [facility], A Department of [facility] Comment on above: Migraine without aur a and without status migrainosus, not intractable Start: 07-09-2024 ambulatory ABIEL MATTHEW [facility] Start: 07-08-2024 End: 07-08-2024 Bamboo flowsheet Jodi SERRA Work Phone: [facility] Start: 07-08-2024 End: 07-08-2024 Bamboo flowsheet Jodi SERRA Work Phone: [facility] Start: 07-08-2024 End: 07-08-2024 Office outpatient visit 25 minutes Jodi SRERA Work Phone: [facility] Comment on above: Melanocytic nevus of trunk (Primary Dx); Other specified dermatitis; Dermatofibroma of right upper extremity Start: 07-08-2024 End: 07-08-2024 ambulatory JODI MAZARIEGOS Not Available Start: 07-01-2024 End: 07-01-2024 Office outpatient visit 15 minutes Marni Flowers SUPERVISOR [employer]-JAVA MOBILE DEVELOPER Work Phone: 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; Cervicalgia; Brain fog Start: 07-01-2024 End: 07-01-2024 ambulatory MARNI FLOWERS [facility] Start: 05-18-2024 End: 10-07-2024 Telephone encounter Cas Dowell MD Work Phone: [facility] Comment on above: Med Refill Start: 05-13-2024 ambulatory [facility] Start: 05-08-2024 End: 05-08-2024 ambulatory Phillip Thomas MD Facility:[facility] Start: 05-01-2024 End: 05-07-2024 Clinisync Result Encounter Generic External Data Provider [facility] External Department Unsolicited Start: 05-01-2024 End: 05-07-2024 Clinisync Result Encounter Generic External Data Provider [facility] External Department Unsolicited Start: 05-01-2024 End: 05-01-2024 Refill Akila Yao MD Work Phone: [facility] Adult [facility] Comment on above: Hypothyroidism due t o Cesar's thyroiditis Start: 04-18-2024 End: 05-02-2024 Clinisync Result Encounter Generic External Data Provider [facility] External Department Unsolicited Start: 04-18-2024 End: 05-02-2024 Clinisync Result Encounter Generic External Data Provider [facility] External Department Unsolicited Start: 04-15-2024 ambulatory [facility] Start: 03-30-2024 End: 03-31-2024 Refill Akila Yao MD Work Phone: [facility] [...] [facility] External Department Unsolicited Start: 02-18-2024 ambulatory [facility] Start: 02-11-2024 End: 02-11-2024 Bambodelmi Dowell MD Work Phone: [facility] Start: 02-11-2024 End: 02-11-2024 Zaida smallheet Cas Dowlel MD Work Phone: [facility] Start: 02-11-2024 End: 02-11-2024 Clinisync Result Encounter Cas Dowell MD Work Phone: [facility] External Department Unsolicited Start: 02-11-2024 End: 02-11-2024 ambulatory CAS DOWELL Not Available Start: 02-11-2024 End: 02-11-2024 Office outpatient visit 25 minutes Cas Dowell MD Work Phone: [facility] Comment on above: Type 2 diabetes johanna itus with hyperglycemia, without long-term current use of insulin (CMS/HCC) (Primary Dx); Autonomic dysfunction; Chronic [id number] syndrome; Moderate persistent asthma without complication (CMS/HCC); Chronic allergic rhinitis due to pollen; Edema of both legs; MDD (major depressive disorder), recurrent episode, mild (HCC) (CMS/HCC); Class 2 severe obesity due to excess calories with serious comorbidity and body mass index (BMI) of 37.0 to 37.9 in adult (CMS/HCC); Gastroesophageal reflux disease without esophagitis Start: 02-05-2024 End: 02-05-2024 ambulatory AKILA Razo [facility] Start: 01-23-2024 ambulatory [facility] Start: 01-18-2024 ambulatory [facility] Start: 01-07-2024 ambulatory [facility] Start: 01-02-2024 End: 01-02-2024 Telephone encounter Mrani KOWALSKI Work Phone: [facility] Start: 01-02-2024 End: 01-02-2024 Office outpatient visit 25 minutes Marni KOWALSKI Work Phone: [facility] Comment on above: Migraine without aur a and without status migrainosus, not intractable (Primary Dx); 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; 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; Cervicalgia; Hypersomnia with sleep apnea; Memory difficulties; KATELIN (obstructive sleep apnea); Trapezius muscle spasm; Word finding difficulty Start: 01-02-2024 End: 01-02-2024 ambulatory [facility] Start: 01-01-2024 End: 01-01-2024 ambulatory Phillip Thomas MD [facility] Start: 12-27-2023 End: 12-27-2023 ambulatory IV[facility] Start: 12-27-2023 End: 12-27-2023 Subsequent hospital visit by physician Cas Dowell MD Work Phone: [facility] Start: 12-27-2023 End: 12-27-2023 Clinisync Result Encounter Generic External Data Provider [facility] External Department Unsolicited Start: 12-27-2023 End: 12-27-2023 Clinisync Result Encounter Generic External Data Provider [facility] External Department Unsolicited Start: 12-19-2023 ambulatory ABIEL [facility] Start: 12-19-2023 End: 12-19-2023 ambulatory [facility] Start: 12-19-2023 End: 12-19-2023 Subsequent hospital visit by physician [facility] Pulmonary Function Room [facility] Comment on above: Moderate asthma with out complication, unspecified whether persistent Start: 12-06-2023 End: 12-06-2023 Refill Marni Flowers SUPERVISOR [employer]AVA [employer]BILE DEVELOPER Work Phone: [facility] Start: 11-30-2023 End: 11-30-2023 ambulatory Cas Dowell MD Facility:[facility] Start: 11-26-2023 End: 11-26-2023 Clinisync Result Encounter Generic External Data Provider [facility] External Department Unsolicited Start: 11-26-2023 End: 11-26-2023 Clinisync Result Encounter Generic External Data Provider [facility] External Department Unsolicited Start: 11-22-2023 End: 11-22-2023 Office outpatient visit 15 minutes Akila Yao MD Work Phone: [facility] Comment on above: 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) Start: 11-22-2023 End: 11-22-2023 ambulatory AKILA YAO [facility] Start: 11-20-2023 End: 11-20-2023 [...] preventive med est patient 18-39 yrs Rubens Glenroy DO Work Phone: [facility] OB Comment on above: PCOS (polycystic ova amarilis syndrome) (Primary Dx); Well woman exam with routine gynecological exam; Hormone disorder Start: 11-20-2023 End: 11-20-2023 ambulatory RUBENS PONCEO Not Available Start: 11-19-2023 ambulatory [facility] Start: 11-07-2023 End: 11-07-2023 Bamboo flowsheet [...] PAINTING Not Available Start: 11-06-2023 ambulatory STEPHON HICKEYUBB [facility] Start: 10-30-2023 End: 10-31-2023 Refill Marni Lionel SUPERVISOR [employer]AVA [employer]LE DEVELOPER Work Phone: [facility] Start: 10-23-2023 End: 10-23-2023 Orders Only Cas Dowell MD Work Phone: [facility] Start: 10-10-2023 End: 10-10-2023 Bamboo flowsheet Cas Dowell MD Work Phone: [facility] Start: 10-10-2023 End: 10-10-2023 Bamboo flowsheet Cas Dowell MD Work Phone: [facility] Start: 10-10-2023 End: 10-10-2023 Office outpatient visit 25 minutes Cas Dowell MD Work Phone: [facility] Comment on above: Type 2 diabetes johanna itus with hyperglycemia, without long-term current use of insulin (CMS/HCC) (Primary Dx); Chronic [id number] syndrome; Moderate persistent asthma without complication (CMS/HCC); Chronic allergic rhinitis due to pollen; Edema of both legs Start: 10-10-2023 End: 10-10-2023 ambulatory CAS DOWELL Not Available Start: 10-02-2023 End: 10-02-2023 Patient encounter procedure Selma Choe [facility] Start: 10-01-2023 End: 10-01-2023 Clinisync Result Encounter [...] 09-24-2023 Refill Akila Yao MD Work Phone: [facility] Comment on above: Hypothyroidism due t o Cesar's thyroiditis Start: 09-08-2023 End: 09-10-2023 Refill Terri Han MD Work Phone: [facility] Comment on above: Chronic sinusitis Start: 08-07-2023 End: 08-07-2023 Refill Marni Flowers SUPERVISOR [employer] DEVELOPER Work Phone: [facility] Start: 07-24-2023 End: 07-24-2023 Refill Marni Flowers SUPERVISOR [employer] DEVELOPER Work Phone: [facility] Start: 07-05-2023 End: 07-05-2023 Office outpatient visit 25 minutes Marni Flowers SUPERVISOR [employer]BILE DEVELOPER Work Phone: 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; Word finding difficulty; Autonomic dysfunction; Cervicalgia Start: 07-05-2023 End: 07-05-2023 ambulatory [facility] Start: 05-08-2023 End: 05-08-2023 Office outpatient visit 15 minutes Sarah Best SUPERVISOR [employer]-JAVA [employer]BILE DEVELOPER [facility]: [facility] Comment on above: 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) Start: 05-08-2023 End: 05-08-2023 ambulatory SARAH BEST [facility] Start: 03-12-2023 Orders Only Cas Horner Work Phone: [facility] Comment on above: Moderate persistent asthma without complication (CMS/HCC) (Primary Dx) Start: 03-04-2023 Orders Only Marni BUSTOS RN-JAVA MOBILE DEVELOPER Work Phone: [facility] Start: 02-04-2023 Refill Marni BUSTOS RN-JAVA MOBILE DEVELOPER Work Phone: [facility] Start: 10-02-2022 End: 10-02-2022 Office outpatient visit 15 minutes Fuentes Amaral MD Work Phone: Hematology/Oncology Comment on above: Qualitative platelet disorder (HCC) (Primary Dx); Bleeding disorder (HCC); Coagulopathy (HCC) Start: 09-05-2022 End: 09-05-2022 Patient encounter procedure LORAINE BURNHAM [facility] Start: 06-15-2022 End: 06-16-[address] CAS [...] with patient Bhargavi Ramesh PA-C Work Phone: [facility] Start: 04-17-2022 End: 04-18-2022 [facility] Fuentes Amaral MD Work Phone: Hematology/Oncology [...] Start: 03-16-2022 End: 03-17-2022 ambulatory [facility]ES AM[facility]AL [facility] Start: 02-28-2022 End: 02-28-2022 Patient encounter procedure LORAINE BURNHAM [facility] Start: 02-27-2022 Patient Update Tesfaye Whitman [facility] Comment on above: Patient [...] by physician Cas Dowell MD Work Phone: [facility] Start: 02-16-2022 Telephone encounter Manda León RN Hematology/Oncology Comment on above: Orders Start: 02-15-2022 End: 03-15-2022 ambulatory BLACKBURNJanet JACOBSON Facility: Start: 02-13-2022 End: 02-13-2022 Patient encounter procedure Meena Grissom MD Work Phone: Neurology Comment on above: No-show for appointm ent (Primary Dx) Start: 02-13-2022 End: 02-13-2022 Telemedicine consultation with patient Meena Grissom MD Work Phone: [facility] Start: 02-10-2022 End: 02-10-2022 Visit (SP) Office Fuentes Amaral MD Work Phone: Hematology/Oncology Comment on above: Qualitative platelet disorder (HCC) (Primary Dx); Bleeding disorder (HCC) Start: 02-01-2022 Telephone encounter [facility] Work Phone: Neurology Comment on above: Appointment (Downloa d Pap Therapy Follow Up-) Start: 01-23-2022 End: 01-23-2022 Patient encounter procedure Marcell WALTERS [facility] Start: 01-16-2022 End: 01-16-2022 ambulatory Bhargavi Ramesh PA-C Work Phone: Neurology Comment on above: Migraine without aur a and without status migrainosus, not intractable (Primary Dx) Start: 01-16-2022 End: 01-16-2022 Telemedicine consultation with patient Bhargavi Ramesh PA-C Work Phone: [facility] Start: 12-24-2021 End: 12-25-[address] BELÉN ANDRADE Facility: Start: 2021 End: 2021 Patient encounter procedure LORAINE BURNHAM [facility] Start: 12-20-2021 Telephone encounter Dayanna olvera [facility] Work Phone: [facility] Comment on above: Results Start: 12-17-2021 Encounter for genera l adult medical examination without abnormal findings DR CAS DOWELL [facility] Start: 12-15-2021 Chart abstracting [facility] [...] fro m caregiver Farzaneh Steward RN [facility] Start: 11-18-2021 End: 11-18-2021 Visit (SP) Office Fuentes Amaral MD Work Phone: Hematology/Oncology Comment on above: Breast screening (Pr imary Dx); Qualitative platelet disorder (HCC) Start: 11-16-2021 End: 11-16-2021 Telephone encounter Meena Grissom MD Work Phone: Neurology Comment on above: 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) KATELIN on CPAP [...] with patient Meena Grissom MD Work Phone: [facility] Start: 11-15-2021 Telephone encounter [facility] Work Phone: Neurology Comment on above: Appointment (Lauro horner Pap Therapy Follow UP) Start: 11-14-2021 End: 11-14-[address] BELÉN ANDRADE Facility: Start: 11-10-2021 End: 11-11-2021 [facility] Fuentes Amaral MD Work Phone: Hematology/Oncology [...] Henny Rushing MD Work Phone: [facility] Start: 10-20-2021 End: 10-20-2021 ambulatory Micheal Perez MD Work Phone: Cardiology Comment on above: Palpitations (Primar y Dx); Symptomatic bradycardia; Orthostatic lightheadedness; Diffuse pain; Blood pressure instability; Decreased activity tolerance; Orthostatic intolerance; Moderate persistent asthma without complication; Physical deconditioning Start: 10-20-2021 End: 10-20-2021 Telemedicine consultation with patient Micheal Perez MD Work Phone: [facility] Start: 10-19-2021 End: 10-19-2021 ambulatory Bhargavi Ramesh PA-C Work Phone: Neurology Comment on above: Chronic migraine wit hout aura, intractable, without status migrainosus (Primary Dx) Start: 10-19-2021 End: 10-19-2021 Telemedicine consultation with patient Bhargavi Ramesh PA-C Work Phone: [facility] Start: 10-19-2021 End: 10-20-[address] HUSAM KIM Facility: Start: 10-14-2021 End: 10-14-2021 ambulatory Judith Valdes PSYD Work Phone: Neurological [place] Comment on above: Depression, unspecif ied depression type (Primary Dx); Anxiety; Abnormal involuntary movement Start: 10-14-2021 End: 10-14-2021 Telemedicine consultation with patient Judith Gutierrezjanet HILLS Work Phone: [facility] Start: 10-12-2021 End: 10-12-2021 ambulatory Ruth Villaseñor MD Work Phone: Rheumatology Comment on above: Malaise and fatigue (Primary Dx); Lymphadenopathy Start: 10-12-2021 End: 10-12-2021 Telemedicine consultation with patient Ruth Villaseñor MD Work Phone: [facility] Start: 09-30-2021 ambulatory Landen Mahmood APR, N.CNP Work Phone: Pulmonary Medicine Comment on above: Breast testing Start: 09-30-2021 End: 09-30-2021 Subsequent hospital visit by physician Xr Chest Main A21 Radiology Comment on above: History of COVID-19 [Z86.16] Start: 09-27-2021 End: 09-27-2021 ambulatory [facility] [place] Work Phone: Pulmonary Lab Comment on above: Spirometry Start: 09-27-2021 End: 09-27-2021 Patient encounter procedure [facility]m [facility] [place] Work Phone: [facility] Start: 09-23-2021 ambulatory Landen Mahmood APR, N.CNP Work Phone: Pulmonary Medicine Comment on above: Breathing test Start: 09-22-2021 End: 09-23-2021 ambulatory Landen Mahmood APRN.MACY Work Phone: Pulmonary Medicine [...] End: 09-19-2021 Patient encounter procedure Landen Mahmood APRN.JAVA MOBILE DEVELOPER Work Phone: Pulmonary Medicine Comment on above: 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); History of COVID-19; SOB (shortness of breath); Chronic cough; Chest discomfort; Palpitation; CAVANAUGH (dyspnea on exertion); Dizziness; Near syncope; Night sweats; Orthopnea; Anxiety; Myalgia; Pain in joint, multiple sites; Mass of left axilla Start: 09-19-2021 Telephone encounter Landen Mahmood APRN.CNP Work Phone: Pulmonary Medicine Comment on above: 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 Start: 09-16-2021 End: 09-16-2021 ambulatory Judith Valdes PSYD Work Phone: Neurological [place] Comment on above: Depression, unspecif ied depression type (Primary Dx); Anxiety; Abnormal involuntary movement Start: 09-16-2021 End: 09-16-2021 Telemedicine consultation with patient Judith Valdes PSYD Work Phone: [facility] Start: 09-05-2021 End: 09-05-2021 Emergency department patient visit Christine Abraham DO Work Phone: [facility] ED Comment on above: Allergic reaction, i nitial encounter (Primary Dx) Start: 08-30-2021 End: 08-30-2021 [facility] Ayaka Bright MD Work Phone: [facility] Comment on above: Long COVID (Primary Dx); Diffuse pain; Decreased activity tolerance; PTSD (post-traumatic stress disorder) CT scan results sent Start: 08-23-2021 Telephone encounter Shelbie Umaña PA-C Work Phone: General Surgery Comment on above: Results - Ct Start: 08-23-2021 End: 08-23-2021 ambulatory Peter Mengkhalida SARMIENTOJAVA MOBILE DEVELOPER Work Phone: Neurology Comment on above: Diffuse pain (Primar y Dx); Decreased activity tolerance; Physical deconditioning; Orthostatic intolerance Start: 08-23-2021 End: 08-23-2021 Telemedicine consultation with patient Peter Knight LIO.JAVA MOBILE DEVELOPER Work Phone: [facility] Start: 08-19-2021 End: 08-19-2021 Subsequent hospital visit by physician [facility] [employer] [address] Radiology Comment on above: Chronic RLQ pain [R1 0.31, G89.29] Start: 08-18-2021 ambulatory Mike Zayas MD Work Phone: Kidney Medicine Main [place] Start: 08-18-2021 Patient encounter procedure Mike Zayas MD Work Phone: [facility] Start: 08-17-2021 ambulatory SAI PEREZ Facility: [facility] Start: 08-17-2021 End: 08-17-2021 Subsequent hospital visit by physician Echo [facility] Echocardiology Testing Comment on above: Symptomatic bradycar aziza [R00.1] Start: 08-16-2021 Orders Only Berlin Avila MD Work Phone: Radiology Comment on above: Chronic RLQ pain (Pr imary Dx) Start: 08-15-2021 Telephone encounter Jenni cassidy RN Work Phone: [facility] Home Delivery Comment on above: Insurance Authorizat ion (Emgality 120MG/ML syringes (migraine)) Start: 08-15-2021 End: 08-15-2021 Patient encounter procedure Berlin Avila MD Work Phone: General Surgery Comment on above: Chronic RLQ pain (Pr imary Dx); Diastasis recti Start: 08-12-2021 End: 08-12-2021 ambulatory Daniela Stewart PT Work Phone: [facility] Comment on above: Intractable chronic migraine without aura and without status migrainosus; Abnormal involuntary movement Start: 08-12-2021 End: 08-12-2021 Patient encounter procedure [employer] Char[employer]er Work Phone: Kidney Medicine [facility] Comment on above: White coat syndrome with hypertension (Primary Dx) Start: 08-05-2021 End: 08-05-2021 ambulatory Bhargavi Ramesh PA-C Work Phone: Neurology Comment on above: Chronic migraine wit hout aura, intractable, without status migrainosus (Primary Dx) Start: 08-05-2021 End: 08-05-2021 Telemedicine consultation with patient Bhargavi Ramesh PA-C Work Phone: [facility] Start: 08-03-2021 End: 08-03-[address] RUBENS TIM . Facility: Start: 07-29-2021 End: 07-29-2021 ambulatory Judith Valdes PSYD Work Phone: Neurological [place] Comment on above: Depression, unspecif ied depression type (Primary Dx); Anxiety; Intractable chronic migraine without aura and without status migrainosus; Abnormal involuntary movement Start: 07-29-2021 End: 07-29-2021 Telemedicine consultation with patient Judith Valdes PSYD Work Phone: [facility] Start: 07-25-2021 End: 07-25-2021 Patient encounter [...] 07-18-2021 End: 07-18-2021 Patient encounter procedure Lab [facility] [place] Work Phone: Laboratory Medicine Comment on above: Screening for endocr ine disorder Start: 07-15-2021 End: 07-15-2021 [facility] Work Phone: [facility] Comment on above: Bleeding disorder (H CC) (Primary Dx); Coagulopathy (HCC); Qualitative platelet disorder (HCC) Start: 07-14-2021 End: 07-14-2021 Patient encounter procedure Aldo Ann MD Work Phone: Otolaryngology Comment on above: Allergy, initial enc ounter (Primary Dx); Headaches Start: 07-06-2021 End: 07-06-2021 Patient encounter procedure Tracee Mcintyre MD Work Phone: Neurological [place] Comment on above: Intractable chronic migraine without [...] End: 06-27-2021 Patient encounter procedure Peter Knight APRN.JAVA MOBILE DEVELOPER Work Phone: Neurology Comment on above: Worsening headaches (Primary Dx); Maxillary sinus cyst; Muscle spasms of lower extremity, unspecified laterality; Akathisia; Blurred vision; Chorea Start: 06-24-2021 End: 06-25-[address] VIKASH BECKHAM . Facility: Start: 06-22-2021 ambulatory Peter Knight APRN.JAVA MOBILE DEVELOPER Work Phone: Neurology Comment on above: Legs Start: 06-20-2021 End: 06-21-2021 Emergency department patient visit Sean Moses Work Phone: [facility] ED Comment on above: Spasm of muscle (Hannah bhumika Dx); Acute nonspecific chest pain with low risk of coronary artery disease Start: 06-16-2021 Telephone encounter Yan Bass MD Work Phone: Hematology/Oncology Comment on above: Results Start: 06-16-2021 ambulatory PETER KNIGHT Facility :[facility] Start: 06-14-2021 Telephone encounter Jackelyn Lewis i, MD Work Phone: Endocrinology Comment on above: Orders Start: 06-14-2021 End: 06-14-2021 Patient encounter procedure Jackelyn Marques MD Work Phone: Endocrinology Comment on above: Screening for endocr ine disorder (Primary Dx); Primary hypothyroidism Start: 06-14-2021 End: 05-10-2022 ambulatory Autonomic Main Neurology Comment on above: Assessment Start: 06-14-2021 End: 06-14-2021 Patient encounter procedure Autonomic 2 Neur Main [facility] Start: 06-13-2021 ambulatory Peter Knight APRN.JAVA MOBILE DEVELOPER Work Phone: Neurology Comment on above: Blood results Start: 06-10-2021 End: 06-10-2021 ambulatory Yan Bass MD Work Phone: Hematology/Oncology Comment on above: Coagulopathy (HCC) ( Primary Dx) Start: 06-10-2021 End: 06-10-2021 Patient encounter procedure Yan Bass MD Work Phone: [facility] Start: 06-08-2021 Chart abstracting Yan tran MD Work Phone: Hematology/Oncology Start: 06-04-2021 End: 06-04-2021 Emergency department patient visit Brian Santana MD Work Phone: [facility] ED Comment on above: Urticaria (Primary D x); Moderate persistent asthma with exacerbation Start: 05-31-2021 Telephone encounter Peter bermeo APRN.JAVA MOBILE DEVELOPER Work Phone: Neurology Comment on above: Received Outside Med ical Records ([facility]) Start: 05-20-2021 End: 05-20-2021 Emergency department patient visit Cas Dowell MD Work Phone: [facility] ED Comment on above: Chest pain, unspecif ied type (Primary Dx); Abdominal pain, acute, right lower quadrant Start: 04-16-2021 End: 04-16-2021 Emergency department patient visit Mike Stevenson MD [facility] ED Comment on above: Intractable nausea a nd vomiting (Primary Dx); Hydrosalpinx; Left ovarian cyst Start: 03-07-2021 End: 03-08-2021 [facility] Start: 03-06-2021 End: 03-07-2021 ambulatory CAS DOWELL [facility] Start: 11-01-2020 End: 11-01-2020 Emergency department patient visit Araseli Barrett MD Work Phone: [facility] ED Comment on above: COVID-19 (Primary Dx ) Start: 06-13-2020 End: 06-13-2020 Emergency department patient visit Kody Cm MD Work Phone: [facility] ED Comment on above: Strain of lumbar [...] 2d w/wom-mode compl spec&colr d Macrina Wadsworth SUPERVISOR PASTE PLANT - JAVA MOBILE DEVELOPER Work Phone: Start: 08-11-2024 ALL CBC WITH [...] Phone: Start: 12-27-2023 Antibody rubella Ivory Ordaz SUPERVISOR PA[employer] PLANT - JAVA MOBILE DEVELOPER Work Phone: Start: 12-27-2023 MHPT RUBELLA AB, IGG Generic External Data Provider Start: 12-19-2023 Brncdilat rspse spmtry pre&post-brncdilat admn Nabor Yancey SUPERVISOR PASTE PLANT - JAVA MOBILE DEVELOPER Work Phone: Start: 11-26-2023 ALL THYROXINE (T4) FREE Generic External Data Provider Start: 11-20-2023 IGP,APTIMA HPV,AGE GDLN Rubens Glenroy DO Work Phone: Start: 10-01-2023 [facility] CBC W AUTO DIFF BLD Generic External Data Provider Start: 08-31-2023 Mammography Generic Provider Start: 05-08-2023 Follow-up visit Follow-up SARAH BEST Start: 01-31-2023 Esophagogastroduodenoscopy Selma Дмитрий Start: 01-04-2023 Adult depression screening assessment Marni Lionel SUPERVISOR PASTE PLANT-JAVA MOBILE DEVELOPER Work Phone: Start: 01-01-2023 Hemoglobin glycosylated a1c [...] Radiologic exam chest 2 views Landen Mahmood APRN.JAVA MOBILE DEVELOPER Work Phone: Start: 09-27-2021 End: 09-27-2021 Co diffusing capacity Landen Mahmood APRN.CNP Work Phone: Start: 09-14-2021 Adult depression screening assessment Judith Valdes PSYD Work Phone: Start: 08-19-2021 Us pelvic nonobstetric image dcmtn limited/f/u Berlin Avila MD Work Phone: Start: 08-17-2021 Echo tthrc r-t 2d w/wom-mode compl spec&colr d Christy Santos MD Work Phone: Start: 08-17-2021 LVEF ECHO Sai Perez MD Work Phone: Start: 07-29-2021 Adult depression screening assessment [facility] Work Phone: Start: 07-18-2021 Adrenocorticotropic hormone acth Perry Marques MD Work Phone: Start: 07-01-2021 Adrenocorticotropic hormone acth Perry Marques MD Work Phone: Start: 06-29-2021 Adult depression screening assessment Yan Bass MD Work Phone: Start: 06-21-2021 Radiologic exam chest single view Sean AndNewswired DO Work Phone: Start: 06-21-2021 Basic metabolic panel calcium total Sean AndNewswired DO Work Phone: Start: 06-21-2021 Ecg routine ecg w/least 12 lds w/i&r Sean Thinkature DO Work Phone: Start: 06-20-2021 Adult depression screening assessment Peter Knight SUPERVISOR PASTE PLANT.JAVA MOBILE DEVELOPER Work Phone: Start: 06-04-2021 RESPIRATORY CARE EVALUATION ONLY Brian Santana MD Work Phone: Start: 05-20-2021 Assay of troponin quantitative Shanna Rivas SUPERVISOR PA[employer] PLANT - JAVA MOBILE DEVELOPER Work Phone: Start: 05-20-2021 Ct abdomen & pelvis w/o contrast material Shanna Rivas SUPERVISOR PASTE PLANT - JAVA MOBILE DEVELOPER Work Phone: Start: 05-20-2021 Drug screen class list a Shanna anguiano SUPERVISOR PA[employer] PLANT - JAVA MOBILE DEVELOPER Work Phone: Start: 05-20-2021 Urinalysis microscopic only Shanna verduzco SUPERVISOR PASTE PLANT - JAVA MOBILE DEVELOPER Work Phone: Start: 05-20-2021 Urnls dip stick/tablet rgnt auto w/o microscopy Shanna Rivas SUPERVISOR PA[employer] PLANT - JAVA MOBILE DEVELOPER Work Phone: Start: 05-20-2021 Radiologic exam chest single view Adryan Evelyn SUPERVISOR PA[employer] PLANT - JAVA MOBILE DEVELOPER Work Phone: Start: 05-20-2021 Assay of lactate Shanna Bishop Evelyn SUPERVISOR PA[employer] PLANT - JAVA MOBILE DEVELOPER Work Phone: Start: 05-20-2021 BASIC METABOLIC PANEL W/ REFLEX TO MG FOR LOW K Shanna Bishop Evelyn SUPERVISOR PA[employer] PLANT - JAVA MOBILE DEVELOPER Work Phone: Start: 05-20-2021 C-reactive protein Shanna Bishop Evelyn SUPERVISOR PA[employer] PLANT - JAVA MOBILE DEVELOPER Work Phone: Start: 05-20-2021 Ecg routine ecg w/least 12 lds w/i&r Araseli Barrett MD Work Phone: Start: 05-19-2021 Adult depression screening assessment Peter Knight SUPERVISOR PASTE PLANT.JAVA MOBILE DEVELOPER Work Phone: Start: 04-16-2021 Ct abdomen & pelvis w/o contrast material Shanna Bishop Evelyn SUPERVISOR PA[employer] PLANT - JAVA MOBILE DEVELOPER Work Phone: Start: 04-16-2021 Radiologic exam chest single view Adryan Evelyn SUPERVISOR PA[employer] PLANT - JAVA MOBILE DEVELOPER Work Phone: Start: 04-16-2021 Ecg routine ecg w/least 12 lds w/i&r Shanna Bishop Evelyn SUPERVISOR PA[employer] PLANT - JAVA MOBILE DEVELOPER Work Phone: Start: 04-16-2021 Urinalysis microscopic only Shanna Peña dax SUPERVISOR PA[employer] PLANT - JAVA MOBILE DEVELOPER Work Phone: Start: 04-16-2021 Urine test visual color cmprsn meths Shanna Bishop Evelyn SUPERVISOR PA[employer] PLANT - JAVA MOBILE DEVELOPER Work Phone: Start: 04-16-2021 Assay of lipase Shanna Bishop Evelyn SUPERVISOR PASTE PLANT - JAVA MOBILE DEVELOPER Work Phone: Start: 04-16-2021 BASIC METABOLIC PANEL W/ REFLEX TO MG FOR LOW K Shanna Bishop Evelyn SUPERVISOR PA[employer] PLANT - JAVA MOBILE DEVELOPER Work Phone: Start: 04-16-2021 Hepatic function panel Shanna Bishop Evelyn SUPERVISOR PASTE PLANT - JAVA MOBILE DEVELOPER Work Phone: Start: 02-10-2021 H/O: hysterectomy History [...] Phone: Start: 03-17-2019 Fallopian tube excision LORAINE COMBSRY Start: 04-08-2009 Laparoscopic cholecystostomy LORAINE TEO RRY Appendectomy LORAINEJEANETTE BURNHAM section LORAINE BRUCE RRY Colonoscopy Selma Orzech Endometrial ablation Selma Orzech Esophagogastroduodenoscopy A urora Orzech H/O: hysterectomy Status post hysterectomy Margot Limon APRN.CNP Work Phone: Insertion of cardiac monitoring implant using fluoroscopic guidance Selma Orzech Laparoscopic lysis of adhesions Selma Orzech Ligation of fallopian tube J ENLEROYJEANETTE BURNHAM Nasal septoplasty LORAINE P ERRY Tympanostomy LORAINE TEJ Plan of Treatment Date Care Activity Detail Author Start: 12-17-2025 Glaucoma screening Diabetes: Retinopathy Screening [facility] Start: 10-28-2025 Adult BMI Screening Adult BMI Screening [facility] Start: 10-28-2025 Tobacco Screening Tobacco Screening [facility] Start: 09-29-2025 End: 09-29-2025 Follow-up encounter 09/29/2025 9:30 AM EDT Visit (SP) Office Hematology/Oncology [address] [place] [address] Margot Limon APRN.JAVA MOBILE DEVELOPER [address] [place] [address] 1 year follow up Hematology/Oncology Comment on above: 1 year follow up Start: 09-29-2025 End: 09-29-2025 Patient encounter procedure 09/29/2025 9:15 AM EDT Office Visit [facility] [address] [place] [address] 1 year follow up [facility] Comment on above: 1 year follow up Start: 07-08-2025 End: 07-08-2025 Patient encounter procedure [facility] Start: 02-11-2025 End: 02-11-2025 Patient encounter procedure 02/11/2025 9:00 AM EST Office Visit [facility] [address] [place] [address] Cas Dowell MD [address] [place] [address] [facility] Start: 01-27-2025 End: 01-27-2025 Patient encounter procedure 01/27/2025 4:15 PM EST Office Visit [facility] [address] [place] [phone] Terri Han MD [address] [facility] [address] [place] [address] [facility] Start: 01-05-2025 End: 01-05-2025 Clinical Support 01/05/2025 12:30 PM EST Clinical Support [facility] [address] [place] [phone] Argentina Trivedi, [facility] [address] [facility] [place] [address] [facility] Start: 01-01-2025 Adult BMI Screening Adult BMI Screening [facility] Start: 01-01-2025 Tobacco Screening Tobacco Screening [facility] Start: 12-26-2024 End: 12-26-2024 Patient encounter procedure 12/26/2024 10:30 AM EST Office Visit [facility] Neurology, A Department of [facility] [address] [facility] [employer] [address] [phone] Marni Flowers, [facility] [address] [phone] [facility] Neurology, A Department of [facility] Start: 12-01-2024 End: 12-01-2024 Patient encounter procedure [facility] Start: 11-27-2024 End: 11-27-2024 Patient encounter procedure 11/27/2024 10:00 AM EDT Office Visit [facility] [address] [place] [phone] Rubens Tim DO [address] [place] [address] [facility] Start: 11-24-2024 End: 11-24-2024 Patient encounter procedure [facility] Adult Endocrinology, A Department of [facility] Start: 11-21-2024 Adult BMI Screening Adult BMI Screening [facility] Start: 11-21-2024 Tobacco Screening Tobacco Screening [facility] Start: 10-28-2024 End: 10-28-2025 CT Sinuses WO contrast CT sinuses without contrast Imaging Routine Chronic sinusitis Expected: 10/28/2024, Expires: 10/28/2025 [facility] Comment on above: Expected: 10/28/2024, Expires: Start: 10-06-2024 Influenza vaccination [facility] Start: 09-30-2024 End: 09-30-2024 CBC W Auto Differential panel - Blood COMPLETE BLOOD COUNT AND DIFFERENTIAL Lab Routine Qualitative platelet disorder (HCC) Expected: 09/30/2024 (Approximate), Expires: 09/30/2024 [facility] Work Phone: Comment on above: Expected: 09/30/2024 (Approximate), Expi res: 09/30/2024 Start: 09-30-2024 End: 09-30-2024 Comprehensive metabolic 2000 panel - Serum or Plasma COMPREHENSIVE METABOLIC PANEL Lab Routine Qualitative platelet disorder (HCC) Expected: 09/30/2024 (Approximate), Expires: 09/30/2024 [facility] Comment on above: Expected: 09/30/2024 (Approximate), Expi res: 09/30/2024 Start: 09-29-2024 End: 09-29-2024 Follow-up encounter 09/29/2024 9:45 AM EDT Visit (SP) Office Hematology/Oncology [address] [place] [address] [place] [address] Fuentes Amaral MD [address] [facility] [place] [address] 1 year follow up Hematology/Oncology Comment on above: 1 year follow up Start: 09-29-2024 End: 09-29-2024 Patient encounter procedure 09/29/2024 9:30 AM EDT Office Visit [facility] [address] [facility] [place] [address] 1 year follow up [facility] Comment on above: 1 year follow up Start: 09-25-2024 End: 09-25-2024 Patient encounter procedure 09/25/2024 3:45 PM EDT Office Visit [facility] [address] [place] [phone] Cas Dowell MD [address] [place] [phone] Arrived [facility] Comment on above: Arrived Start: 09-25-2024 End: 09-25-2025 XR Elbow - right 2 Views XR elbow 1 or 2 views right Imaging Routine Right forearm pain Expected: 09/25/2024, Expires: 09/25/2025 [facility] Comment on above: Expected: 09/25/2024, Expires: Start: 09-25-2024 End: 09-25-2025 XR Radius and Ulna - right 2 Views XR forearm 2 views right Imaging Routine Right forearm pain Expected: 09/25/2024, Expires: 09/25/2025 [facility] Comment on above: Expected: 09/25/2024, Expires: Start: 09-25-2024 End: 09-25-2025 XR Wrist - right 2 Views XR wrist 1 or 2 views right Imaging Routine Right wrist pain Expected: 09/25/2024, Expires: 09/25/2025 [facility] Work Phone: Comment on above: Expected: 09/25/2024, Expires: Start: 09-18-2024 End: 09-18-2024 Patient encounter procedure 09/18/2024 12:45 PM EDT Office Visit [address] [address] Nabor Yancey, SUPERVISOR [employer] - JAVA MOBILE DEVELOPER [address] [place] [address] 3 month follow up; Asthma, KATELIN/Silvia; labs [facility] Comment on above: 3 month follow up; Asthma, KATELIN/Silvia; l abs Start: 09-05-2024 Influenza vaccination Flu vaccine (#1) Hong Dang [facility] Start: 08-30-2024 Screening for malignant neoplasm of breast Mammogram [facility] Start: 08-11-2024 End: 08-11-2025 CBC W Auto Differential panel - Blood CBC and differential Lab Routine Annual physical exam Expected: 08/11/2024 (Approximate), Expires: 08/11/2025 [facility] Comment on above: Expected: 08/11/2024 (Approximate), Expi res: 08/11/2025 Start: 08-11-2024 End: 08-11-2025 Comprehensive metabolic 2000 panel - Serum or Plasma Comprehensive metabolic panel Lab Routine Annual physical exam Expected: 08/11/2024 (Approximate), Expires: 08/11/2025 [facility] Comment on above: Expected: 08/11/2024 (Approximate), Expi res: 08/11/2025 Start: 08-11-2024 End: 08-11-2025 Hemoglobin A1c/Hemoglobin.total in Blood Hemoglobin A1c Lab Routine Annual physical exam Expected: 08/11/2024 (Approximate), Expires: 08/11/2025 [facility] Comment on above: Expected: 08/11/2024 (Approximate), Expi res: 08/11/2025 Start: 08-11-2024 End: 08-11-2025 Lipid 1996 panel - Serum or Plasma Lipid panel Lab Routine Annual physical exam Expected: 08/11/2024 (Approximate), Expires: 08/11/2025 [facility] Comment on above: Expected: 08/11/2024 (Approximate), Expi res: 08/11/2025 Start: 08-11-2024 End: 08-11-2025 Microalbumin/Creatinine panel in random Urine Microalbumin / creatinine, urine ratio Lab Routine Type 2 diabetes mellitus with hyperglycemia, without long-term current use of insulin (HCC) Expected: 08/11/2024 (Approximate), Expires: 08/11/2025 [facility] Work Phone: Comment on above: Expected: 08/11/2024 (Approximate), Expi res: 08/11/2025 Start: 08-11-2024 End: 08-11-2025 Thyrotropin [Units/volume] in Serum or Plasma TSH Lab Routine Annual physical exam Expected: 08/11/2024 (Approximate), Expires: 08/11/2025 [facility] Comment on above: Expected: 08/11/2024 (Approximate), Expi res: 08/11/2025 Start: 08-11-2024 End: 08-11-2025 Thyroxine (T4) free [Mass/volume] in Serum or Plasma T4, free Lab Routine Primary hypothyroidism Expected: 08/11/2024 (Approximate), Expires: 08/11/2025 [facility] Comment on above: Expected: 08/11/2024 (Approximate), Expi res: 08/11/2025 Start: 08-11-2024 End: 08-11-2024 Patient encounter procedure [facility] Comment on above: Arrived Start: 07-08-2024 End: 07-08-2024 Patient encounter procedure [facility] TSSil[facility] GARCÍA Comment on above: Arrived Start: 07-04-2024 Tobacco Screening Tobacco Screening [facility] Start: 07-01-2024 End: 07-01-2024 Telemedicine consultation with patient [facility] Start: 05-07-2024 Adult BMI Screening Adult BMI Screening [facility] Start: 05-07-2024 Tobacco Screening Tobacco Screening [facility] Start: 04-17-2024 End: 04-17-2024 Patient encounter procedure 04/17/2024 8:30 AM EDT Office Visit [address] [address] David Mai MD [facility] [place] [address] 6 mth f/u [facility] Comment on above: 6 mth f/u Start: 04-12-2024 Urine screening for protein Diabetes: Urine Protein Screening [facility] Start: 02-27-2024 End: 02-27-2024 Patient encounter procedure 02/27/2024 8:15 AM EST Office Visit [facility] [address] [place] [address] Cas Dowell MD [address] [place] [phone] Arrived [facility] Comment on above: Arrived Start: 02-22-2024 Hemoglobin A1c measurement Diabetes: Hemoglobin A1C [facility] Start: 02-11-2024 End: 02-10-2025 Hemoglobin A1c/Hemoglobin.total in Blood Hemoglobin A1c Lab Routine Type 2 diabetes mellitus with hyperglycemia, without long-term current use of insulin ([facility]) Expected: 02/11/2024 (Approximate), Expires: 02/10/2025 [facility] Work Phone: Comment on above: Expected: 02/11/2024 (Approximate), Expi res: 02/10/2025 Start: 01-14-2024 End: 01-14-2024 Patient encounter procedure 01/14/2024 9:40 AM EST Office Visit [facility] [address] [place] [address] Christy Painting MD [address] [facility] [address] [place] [address] [facility] Start: 01-09-2024 End: 01-09-2024 Patient encounter procedure 01/09/2024 8:45 AM EST Office Visit [facility] [address] [place] [address] Cas Dowell MD [address] [place] [address] [facility] Start: 01-05-2024 Adult BMI Screening Adult BMI Screening [facility] Start: 01-05-2024 Depression Screening Depression Screening [facility] Start: 01-05-2024 Tobacco Screening Tobacco Screening [facility] Start: 01-02-2024 End: 01-02-2024 Patient encounter procedure 01/02/2024 10:30 AM EST Office Visit [facility] [address] [place] [address] Marni Flowers APRN-JAVA [employer]BI[employer] DEVELOPER [address] [place] [address] [facility] Start: 2023 Screening for malignant neoplasm of breast [facility] Start: 12-19-2023 GFR test (Diabetes, CKD 3-4, OR last GFR 15-59) GFR test (Diabetes, CKD 3-4, OR last GFR 15-59) [facility] Start: 12-19-2023 Urine screening for protein Diabetes: Urine Protein Screening [facility] Start: 11-22-2023 End: 11-22-2023 Patient encounter procedure 11/22/2023 8:45 AM EDT Office Visit [facility] [address] [facility] [address] [place] [phone] Akila Yao MD [address] [facility] [address] [place] [address] [facility] Start: 11-20-2023 End: 11-19-2024 Cortisol free Cortisol, free Lab Routine PCOS (polycystic ovarian syndrome) Hormone disorder Expected: 11/20/2023, Expires: 11/19/2024 [facility] Comment on above: Expected: 11/20/2023, Expires: Start: 11-20-2023 End: 11-19-2024 DHEA DHEA Lab Routine PCOS (polycystic ovarian syndrome) Hormone disorder Expected: 11/20/2023, Expires: 11/19/2024 [facility] Comment on above: Expected: 11/20/2023, Expires: Start: 11-20-2023 End: 11-19-2024 DHEA-sulfate DHEA-sulfate Lab Routine PCOS (polycystic ovarian syndrome) Hormone disorder Expected: 11/20/2023 (Approximate), Expires: 11/19/2024 [facility] Comment on above: Expected: 11/20/2023 (Approximate), Expi res: 11/19/2024 Start: 11-20-2023 End: 11-19-2024 Estradiol Estradiol Lab Routine PCOS (polycystic ovarian syndrome) Hormone disorder Expected: 11/20/2023 (Approximate), Expires: 11/19/2024 [facility] Comment on above: Expected: 11/20/2023 (Approximate), Expi [...] Hormone disorder Expected: 11/20/2023 (Approximate), Expires: 11/19/2024 [facility] Comment on above: Expected: 11/20/2023 (Approximate), Expi res: 11/19/2024 Start: 11-20-2023 End: 11-20-2023 Patient encounter procedure [facility] Comment on above: Arrived Start: 11-19-2023 End: 11-19-2023 Patient encounter procedure 11/19/2023 8:45 AM EDT Office Visit [facility] [address] [facility] [address] [place] [phone] Akila Yao MD [address] 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 Expected: 11/07/2023 (Approximate), Expires: 05/07/2024 [facility] Comment on above: Expected: 11/07/2023 (Approximate), Expi res: 05/07/2024 Start: 11-07-2023 End: 11-07-2023 Patient encounter procedure [facility] Comment on above: Allergic reaction, subsequent encounter Start: 10-10-2023 End: 10-10-2023 Patient encounter procedure [facility] Comment on above: Arrived Start: 10-07-2023 COVID-19 Vaccine ( season) COVID-19 Vaccine ( season) [facility] Start: 10-07-2023 Covid-19 Vaccine ( season) Covid-19 Vaccine ( season) [facility] Start: 10-07-2023 Influenza vaccination [facility] Start: 10-03-2023 End: 10-03-2023 CBC W Auto Differential panel - Blood CBC + DIFF Lab Routine 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) Coagulopathy (HCC) Expected: 10/03/2023 (Approximate), Expires: 10/03/2023 [facility] Work Phone: Comment on above: Expected: 10/03/2023 (Approximate), Expi res: 10/03/2023 Start: 10-03-2023 End: 10-03-2023 Comprehensive metabolic 2000 panel - Serum or Plasma COMP METABOLIC PANEL Lab Routine 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) Coagulopathy (HCC) Expected: 10/03/2023 (Approximate), Expires: 10/03/2023 [facility] Work Phone: Comment on above: Expected: 10/03/2023 (Approximate), Expi res: 10/03/2023 Start: 09-26-2023 End: 09-26-2023 Patient encounter procedure 09/26/2023 9:15 AM EDT Office Visit [facility] [address] [place] [address] Cas Dowell MD [address] [place] [address] Arrived [facility] Comment on above: Arrived Start: 09-06-2023 Influenza vaccination Flu vaccine (#1) [facility] Start: 07-10-2023 End: 07-10-2023 Patient encounter procedure 07/10/2023 9:00 AM EDT Office Visit [facility] [address] [place] [phone] Jodi Mazariegos, PA [address] [place] [address] [facility] Start: 07-05-2023 End: 07-05-2023 Telemedicine consultation with patient 07/05/2023 3:30 PM EDT Telemedicine [facility] [address] [place] [address] Marni Flowers APRN-[employer]AVA [employer]BI[employer] DEVELOPER [address] [place] [address] [facility] Start: 05-08-2023 End: 05-07-2024 US Thyroid gland Ultrasound thyroid Imaging Routine 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 [facility] [address] [place] [address] [facility] Start: 04-09-2023 End: 04-09-2023 Patient encounter procedure 04/09/2023 8:45 AM EST Office Visit [facility] [address] [place] [phone] Cas Dowell MD [address] [place] [address] [facility] Start: 04-03-2023 Hemoglobin A1c measurement Diabetes: Hemoglobin A1C [facility] Start: 01-30-2023 GFR test (Diabetes, CKD 3-4, OR last GFR 15-59) GFR test (Diabetes, CKD 3-4, OR last GFR 15-59) [facility] Start: 01-09-2023 Hemoglobin A1c measurement A1C test (Diabetic or Prediabetic) [facility] Start: 10-17-2022 Adult depression screening assessment DEPRESSION SCREENING [facility] Start: 10-08-2022 Adult depression screening assessment DEPRESSION SCREENING [facility] Start: 10-06-2022 Covid-19 Vaccine ( season) Covid-19 Vaccine ( season) [facility] Start: 10-06-2022 Influenza vaccination [facility] Start: 10-01-2022 End: 04-03-2023 CBC W Auto Differential panel - Blood CBC + DIFF Lab Routine 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) Expected: 10/01/2022 (Approximate), Expires: 04/03/2023 [facility] Work Phone: Comment on above: Expected: 10/01/2022 (Approximate), Expi res: 04/03/2023 Start: 10-01-2022 End: 04-03-2023 Comprehensive metabolic 2000 panel - Serum or Plasma COMP METABOLIC PANEL Lab Routine 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) Expected: 10/01/2022 (Approximate), Expires: 04/03/2023 [facility] Work Phone: Comment on above: Expected: 10/01/2022 (Approximate), Expi res: 04/03/2023 Start: 09-14-2022 Adult depression screening assessment DEPRESSION SCREENING [facility] Start: 07-29-2022 Adult depression screening assessment DEPRESSION SCREENING [facility] Start: 06-29-2022 Adult depression screening assessment DEPRESSION SCREENING [facility] Start: 06-21-2022 End: 06-21-2022 Patient encounter procedure 06/21/2022 Office Visit Pulmonology Armando Balderrama, DO [address] [facility] [address] [place], [place] [phone] [facility] Start: 06-20-2022 Adult depression screening assessment DEPRESSION SCREENING [facility] Start: 05-25-2022 Depression Monitoring Depression Monitoring [facility] Start: 05-19-2022 Adult depression screening assessment DEPRESSION SCREENING [facility] Start: 04-16-2022 Creatinine measurement Creatinine monitoring [facility] Start: 04-16-2022 Potassium monitoring Potassium monitoring [facility] Start: 02-27-2022 End: 02-27-2022 Patient encounter procedure 02/27/2022 Office Visit Pulmonology Nabor Yancey, [employer] - [employer] DEVELOPER [address] [id number] [facility] Start: 02-10-2022 End: 04-12-2022 PLATELET TRANSMISSION ELECTRON MICROSCOPIC STUDY PLATELET TRANSMISSION ELECTRON MICROSCOPIC STUDY Lab Routine 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) Expected: 02/10/2022, Expires: 04/12/2022 [facility] Work Phone: Comment on above: Expected: 02/10/2022, Expires: Start: 02-05-2022 DEPRESSION ASSESSMENT DEPRESSION ASSESSMENT [facility] Start: 2021 End: 2021 Patient encounter procedure 2021 Office Visit Pulmonology Armando Balderrama, DO [address] [place] [address] [facility] P[facility] Start: 11-16-2021 End: 01-16-2022 Ferritin [Mass/volume] in Serum or Plasma FERRITIN BLD Lab Routine RLS (restless legs syndrome) Expected: 11/16/2021, Expires: 01/16/2022 [facility] Work Phone: Comment on above: Expected: 11/16/2021, Expires: 2 Start: 11-16-2021 End: 01-16-2022 Iron and Iron binding capacity panel - Serum or Plasma IRON + TIBC Lab Routine RLS (restless legs syndrome) Expected: 11/16/2021, Expires: 01/16/2022 [facility] Work Phone: Comment on above: Expected: 11/16/2021, Expires: 2 Start: 11-01-2021 Creatinine measurement Creatinine monitoring [facility] Work Phone: Start: 11-01-2021 Potassium monitoring Potassium monitoring [facility] Work Phone: Start: 10-06-2021 Influenza vaccination [facility] Start: 09-28-2021 Glaucoma screening Diabetic retinal exam [facility] Start: 09-21-2021 End: 11-21-2021 Phosphate [Mass/volume] in Serum or Plasma [facility] Work Phone: Comment on above: Expected: 09/21/2021, [...] joint, multiple sites Expected: 09/19/2021, Expires: 11/19/2021 [facility] Work Phone: Comment on above: Expected: 09/19/2021, [...] joint, multiple sites Expected: 09/19/2021, Expires: 11/19/2021 [facility] Work Phone: Comment on above: Expected: 09/19/2021, Expires: 2 Start: 09-19-2021 End: 11-19-2021 CARDIOLIPIN IGM ABS CARDIOLIPIN IGM ABS Lab Routine History of COVID-19 Post-acute sequelae of COVID-19 (PASC) SOB (shortness of breath) Chronic cough Chest discomfort Palpitation CAVANAUGH (dyspnea on exertion) Dizziness Near syncope Night sweats Orthopnea Anxiety Myalgia Pain in joint, multiple sites Expected: 09/19/2021, Expires: 11/19/2021 [facility] Work Phone: Comment on above: Expected: 09/19/2021, Expires: 2 Start: 09-19-2021 End: 11-19-2021 CBC panel - Blood by Automated count CBC Lab Routine History of COVID-19 Post-acute sequelae of COVID-19 (PASC) SOB (shortness of breath) Chronic cough Chest discomfort Palpitation CAVANAUGH (dyspnea on exertion) Dizziness Near syncope Night sweats Orthopnea Anxiety Myalgia Pain in joint, multiple sites Expected: 09/19/2021, Expires: 11/19/2021 [facility] Work Phone: Comment on above: Expected: 09/19/2021, [...] joint, multiple sites Expected: 09/19/2021, Expires: 11/19/2021 [facility] Work Phone: Comment on above: Expected: 09/19/2021, [...] joint, multiple sites Expected: 09/19/2021, Expires: 11/19/2021 [facility] Work Phone: Comment on above: Expected: 09/19/2021, Expires: 2 Start: 09-19-2021 End: 11-19-2021 Erythrocyte sedimentation rate SED RATE WESTERGREN Lab Routine History of COVID-19 Post-acute sequelae of COVID-19 (PASC) SOB (shortness of breath) Chronic cough Chest discomfort Palpitation CAVANAUGH (dyspnea on exertion) Dizziness Near syncope Night sweats Orthopnea Anxiety Myalgia Pain in joint, multiple sites Expected: 09/19/2021, Expires: 11/19/2021 [facility] Work Phone: Comment on above: Expected: 09/19/2021, Expires: 2 Start: 09-19-2021 End: 11-19-2021 Fibrin D-dimer FEU [Mass/volume] in Platelet poor plasma D-DIMER Lab Routine History of COVID-19 Post-acute sequelae of COVID-19 (PASC) SOB (shortness of breath) Chronic cough Chest discomfort Palpitation CAVANAUGH (dyspnea on exertion) Dizziness Near syncope Night sweats Orthopnea Anxiety Myalgia Pain in joint, multiple sites Expected: 09/19/2021, Expires: 11/19/2021 [facility] Work Phone: Comment on above: Expected: 09/19/2021, [...] joint, multiple sites Expected: 09/19/2021, Expires: 11/19/2021 [facility] Work Phone: Comment on above: Expected: 09/19/2021, Expires: 2 Start: 09-19-2021 End: 11-19-2021 OMEGACHECK OMEGACHECK Lab Routine History of COVID-19 Post-acute sequelae of COVID-19 (PASC) SOB (shortness of breath) Chronic cough Chest discomfort Palpitation CAVANAUGH (dyspnea on exertion) Dizziness Near syncope Night sweats Orthopnea Anxiety Myalgia Pain in joint, multiple sites Expected: 09/19/2021, Expires: 11/19/2021 [facility] Work Phone: Comment on above: Expected: 09/19/2021, Expires: 2 Start: 09-19-2021 End: 11-19-2021 TMAO TMAO Lab Routine History of COVID-19 Post-acute sequelae of COVID-19 (PASC) SOB (shortness of breath) Chronic cough Chest discomfort Palpitation CAVANAUGH (dyspnea on exertion) Dizziness Near syncope Night sweats Orthopnea Anxiety Myalgia Pain in joint, multiple sites Expected: 09/19/2021, Expires: 11/19/2021 [facility] Work Phone: Comment on above: Expected: 09/19/2021, Expires: 2 Start: 09-19-2021 End: 11-19-2021 TRACE ELEMENTS/TPN TRACE ELEMENTS/TPN Lab Routine History of COVID-19 Post-acute sequelae of COVID-19 (PASC) SOB (shortness of breath) Chronic cough Chest discomfort Palpitation CAVANAUGH (dyspnea on exertion) Dizziness Near syncope Night sweats Orthopnea Anxiety Myalgia Pain in joint, multiple sites Expected: 09/19/2021, Expires: 11/19/2021 [facility] Work Phone: Comment on above: Expected: 09/19/2021, Expires: 2 Start: 09-05-2021 Influenza vaccination Flu vaccine (#1) [facility] Start: 08-24-2021 End: 08-24-2021 Patient encounter procedure 08/24/2021 Office Visit Pulmonology Armando Balderrama, [address] [place] [address] [facility] Start: 07-25-2021 End: 09-24-2021 Complement C3 [Mass/volume] in Serum or Plasma [facility] Work Phone: Comment on above: Expected: 07/25/2021, Expires: 2 Start: 07-25-2021 End: 09-24-2021 Complement C4 [Mass/volume] in Serum or Plasma [facility] Work Phone: Comment on above: Expected: 07/25/2021, Expires: 2 Start: 07-25-2021 End: 09-24-2021 TRYPTASE BLOOD [facility] Work Phone: Comment on above: Expected: 07/25/2021, Expires: 2 Start: 07-05-2021 End: 09-04-2021 Corticotropin [Mass/volume] in Plasma ACTH BLD Lab Routine Screening for endocrine disorder Expected: 07/05/2021, Expires: 09/04/2021 [facility] Work Phone: Comment on above: Expected: 07/05/2021, Expires: 2 Start: 07-05-2021 End: 09-04-2021 Cortisol [Mass/volume] in Serum or Plasma CORTISOL BLD Lab Routine Screening for endocrine disorder Expected: 07/05/2021, Expires: 09/04/2021 [facility] Work Phone: Comment on above: Expected: 07/05/2021, Expires: 2 Start: 07-01-2021 End: 08-31-2021 CBC W Ordered Manual Differential panel - Blood PATHOLOGIST INTERPRETATION WITH CBC AND DIFF Lab Routine Coagulopathy (HCC) Qualitative platelet disorder (HCC) Expected: 07/01/2021, Expires: 08/31/2021 [facility] Work Phone: Comment on above: Expected: 07/01/2021, Expires: 2 Start: 07-01-2021 End: 08-31-2021 Fibrinogen [Mass/volume] in Platelet poor plasma by Coagulation assay FIBRINOGEN Lab Routine Coagulopathy (HCC) Qualitative platelet disorder (HCC) Expected: 07/01/2021, Expires: 08/31/2021 [facility] Work Phone: Comment on above: Expected: 07/01/2021, Expires: 2 Start: 07-01-2021 End: 08-31-2021 FIBRINOGEN ANTIGEN FIBRINOGEN ANTIGEN Lab Routine Coagulopathy (HCC) Qualitative platelet disorder (HCC) Expected: 07/01/2021, Expires: 08/31/2021 [facility] Work Phone: Comment on above: Expected: 07/01/2021, Expires: 2 Start: 07-01-2021 End: 08-31-2021 PLATELET AGGREGATION PANEL PLATELET AGGREGATION PANEL Lab Routine Coagulopathy (HCC) Qualitative platelet disorder (HCC) Expected: 07/01/2021, Expires: 08/31/2021 [facility] Work Phone: Comment on above: Expected: 07/01/2021, Expires: 2 Start: 07-01-2021 End: 08-31-2021 PLATELET FUNCTION SCREEN PLATELET FUNCTION SCREEN Lab Routine Coagulopathy (HCC) Qualitative platelet disorder (HCC) Expected: 07/01/2021, Expires: 08/31/2021 [facility] Work Phone: Comment on above: Expected: 07/01/2021, Expires: 2 Start: 07-01-2021 End: 08-31-2021 THROMBOGRAPH HEPARINASE PANEL THROMBOGRAPH HEPARINASE PANEL Lab Routine Coagulopathy (HCC) Qualitative platelet disorder (HCC) Expected: 07/01/2021, Expires: 08/31/2021 [facility] Work Phone: Comment on above: Expected: 07/01/2021, Expires: 2 Start: 06-27-2021 End: 08-27-2021 Alpha tocopherol [Mass/volume] in Serum or Plasma VITAMIN E/TOCOPHEROL Lab Routine Muscle spasms of lower extremity, unspecified laterality Akathisia Expected: 06/27/2021, Expires: 08/27/2021 [facility] Work Phone: Comment on above: Expected: 06/27/2021, Expires: 2 Start: 06-27-2021 End: 08-27-2021 Ceruloplasmin [Mass/volume] in Serum or Plasma CERULOPLASMIN BLD Lab Routine Muscle spasms of lower extremity, unspecified laterality Akathisia Expected: 06/27/2021, Expires: 08/27/2021 [facility] Work Phone: Comment on above: Expected: 06/27/2021, Expires: 2 Start: 06-27-2021 End: 08-27-2021 CK CREATINE KINASE CK CREATINE KINASE Lab Routine Muscle spasms of lower extremity, unspecified laterality Akathisia Expected: 06/27/2021, Expires: 08/27/2021 [facility] Work Phone: Comment on above: Expected: 06/27/2021, Expires: 2 Start: 06-27-2021 End: 08-27-2021 COPPER, SERUM/PLASMA FREE COPPER, SERUM/PLASMA FREE Lab Routine Muscle spasms of lower extremity, unspecified laterality Akathisia Expected: 06/27/2021, Expires: 08/27/2021 [facility] [facility] Work Phone: Comment on above: Expected: 06/27/2021, Expires: 2 Start: 06-27-2021 End: 08-27-2021 FERRITIN BLD FERRITIN BLD Lab Routine Muscle spasms of lower extremity, unspecified laterality Akathisia Expected: 06/27/2021, Expires: 08/27/2021 [facility] Work Phone: Comment on above: Expected: 06/27/2021, Expires: 2 Start: 06-14-2021 End: 08-14-2021 Corticotropin [Mass/volume] in Plasma ACTH BLD Lab Routine Screening for endocrine disorder Expected: 06/14/2021, Expires: 08/14/2021 [facility] Work Phone: Comment on above: Expected: 06/14/2021, Expires: 2 Start: 06-14-2021 End: 08-14-2021 Cortisol [Mass/volume] in Serum or Plasma [facility] Work Phone: Comment on above: Expected: 06/14/2021, Expires: 2 Start: 06-14-2021 End: 08-14-2021 DHEA-S BLD [facility] Work Phone: Comment on above: Expected: 06/14/2021, Expires: 2 Start: 06-10-2021 End: 08-10-2021 APTT INCUBATED MIXING STUDY APTT INCUBATED MIXING STUDY Lab Routine Coagulopathy ([facility]) Expected: 06/10/2021, Expires: 08/10/2021 [facility] Work Phone: Comment on above: Expected: 06/10/2021, Expires: 2 Start: 06-10-2021 End: 08-10-2021 Coagulation factor IX activity actual/normal in Platelet poor plasma by Coagulation assay FACTOR IX:C ASSAY Lab Routine Coagulopathy ([facility]) Expected: 06/10/2021, Expires: 08/10/2021 [facility] Work Phone: Comment on above: Expected: 06/10/2021, Expires: 2 Start: 06-10-2021 End: 08-10-2021 Coagulation factor V activity actual/normal in Platelet poor plasma by Coagulation assay FACTOR V:C ASSAY Lab Routine Coagulopathy ([facility]) Expected: 06/10/2021, Expires: 08/10/2021 [facility] Work Phone: Comment on above: Expected: 06/10/2021, Expires: 2 Start: 06-10-2021 End: 08-10-2021 Coagulation factor VIII activity actual/normal in Platelet poor plasma by Coagulation assay FACTOR VIII:C ASSAY Lab Routine Coagulopathy ([facility]) Expected: 06/10/2021, Expires: 08/10/2021 [facility] Work Phone: Comment on above: Expected: 06/10/2021, Expires: 2 Start: 06-10-2021 End: 08-10-2021 Coagulation factor X activity actual/normal in Platelet poor plasma by Coagulation assay FACTOR X:C ASSAY Lab Routine Coagulopathy ([facility]) Expected: 06/10/2021, Expires: 08/10/2021 [facility] Work Phone: Comment on above: Expected: 06/10/2021, Expires: 2 Start: 06-10-2021 End: 08-10-2021 Coagulation factor XI activity actual/normal in Platelet poor plasma by Coagulation assay FACTOR XI:C ASSAY Lab Routine Coagulopathy ([facility]) Expected: 06/10/2021, Expires: 08/10/2021 [facility] Work Phone: Comment on above: Expected: 06/10/2021, Expires: 2 Start: 06-10-2021 End: 08-10-2021 PLATELET AGGREGATION PANEL PLATELET AGGREGATION PANEL Lab Routine Coagulopathy ([facility]) Expected: 06/10/2021, Expires: 08/10/2021 [facility] Work Phone: Comment on above: Expected: 06/10/2021, Expires: 2 Start: 06-10-2021 End: 08-10-2021 PLATELET FUNCTION SCREEN PLATELET FUNCTION SCREEN Lab Routine Coagulopathy ([facility]) Expected: 06/10/2021, Expires: 08/10/2021 [facility] Work Phone: Comment on above: Expected: 06/10/2021, Expires: 2 Start: 06-10-2021 End: 08-10-2021 Prothrombin activity actual/normal in Platelet poor plasma by Coagulation assay FACTOR II:C ASSAY Lab Routine Coagulopathy ([facility]) Expected: 06/10/2021, Expires: 08/10/2021 [facility] Work Phone: Comment on above: Expected: 06/10/2021, Expires: 2 Start: 06-10-2021 End: 08-10-2021 VON WILLEBRAND DX PANEL VON WILLEBRAND DX PANEL Lab Routine Coagulopathy ([facility]) Expected: 06/10/2021, Expires: 08/10/2021 [facility] Work Phone: Comment on above: Expected: 06/10/2021, Expires: 2 Start: 05-25-2021 End: 05-25-2021 Patient encounter procedure 05/25/2021 Office Visit Pulmonology Armando Balderrama DO [address] [id number] [facility] Start: 02-28-2021 End: 02-28-2021 Patient encounter procedure 02/28/2021 Office Visit Pulmonology Fortunato Dean MD [address] [id number] [facility] Start: 02-05-2021 DEPRESSION ASSESSMENT DEPRESSION ASSESSMENT [facility] Start: 10-06-2020 Influenza vaccination [facility] Start: 06-28-2020 End: 06-28-2020 Patient encounter procedure 06/28/2020 Office Visit Pulmonology Fortunato Dean MD [address] [address] [phone] [facility] Start: 12-20-2018 Diabetes screen Diabetes screen [facility] Start: 03-17-2016 Screening for malignant neoplasm of cervix Cervical cancer screen [facility] Work Phone: Start: 12-20-2013 HPV TESTING HPV TESTING [facility] Start: 12-20-2010 HPV Vaccine (1 - 3-dose SCDM series) HPV Vaccine (1 - 3-dose SCDM series) [facility] Start: 12-20-2004 PAP TESTING PAP TESTING [facility] Start: 12-20-2004 Screening for malignant neoplasm of cervix Cervical Cancer Screening [facility] Start: 12-20-2002 DTaP,Tdap and Td Vaccines (1 - Tdap) DTaP,Tdap and Td Vaccines (1 - Tdap) [facility] Start: 12-20-2002 DTaP/Tdap/Td vaccine (1 - Tdap) DTaP/Tdap/Td vaccine (1 - Tdap) [facility] Start: 12-20-2002 Hepatitis B Vaccine (1 of 3 - 19+ 3-dose series) Hepatitis B Vaccine (1 of 3 - 19+ 3-dose series) [facility] Start: 12-20-2002 Hepatitis B vaccine (1 of 3 - Risk 3-dose series) Hepatitis B vaccine (1 of 3 - Risk 3-dose series) [facility] Start: 12-20-2002 Pneumococcal 0-49 years Vaccine (1 of 2 - PCV) Pneumococcal 0-49 years Vaccine (1 of 2 - PCV) [facility] Start: 12-20-2002 Pneumococcal vaccination Pneumococcal Vaccine (1 of 2 - PCV) [facility] Start: 12-20-2002 Urine microalbumin profile [facility] Start: 12-20-2002 Urine screening for protein Diabetes: Urine Protein Screening [facility] Start: 12-20-2001 Adult BMI Follow Up Plan Adult BMI Follow Up Plan [facility] Start: 12-20-2001 ANNUAL PCP TEAM CHRONIC DISEASE VISIT ANNUAL PCP TEAM CHRONIC DISEASE VISIT [facility] Start: 12-20-2001 Anxiety Screening Anxiety Screening [facility] Start: 12-20-2001 Depression Screening Depression Screening [facility] Start: 12-20-2001 Glaucoma screening Diabetic retinal exam [facility] Start: 12-20-2001 HEPATITIS C SCREENING HEPATITIS C SCREENING [facility] Start: 12-20-2001 Hepatitis C screening [facility] Start: 12-20-2001 HIV SCREENING HIV SCREENING [facility] Start: 12-20-2001 HIV screening HIV Screening [facility] Start: 12-20-2001 Urine screening for protein Diabetic Alb to Cr ratio (uACR) test [facility] Start: 1999 COVID-19 Vaccine (1) COVID-19 Vaccine (1) [facility] [employer] [place] Phone: Start: 12-20-1998 HIV screening HIV screen [facility] Start: 12-20-1996 Varicella vaccine (1 of 2 - 13+ 2-dose series) Varicella vaccine (1 of 2 - 13+ 2-dose series) [facility] Start: 1995 COVID-19 Vaccine (1) COVID-19 Vaccine (1) [facility] [employer] Phone: Start: 1995 Depression Screen Depression Screen [facility] Start: 12-20-1993 Diabetic foot examination Diabetic foot exam [facility] Start: 12-20-1993 Glaucoma screening Diabetes: Retinopathy Screening [facility] Start: 12-20-1993 Lipid panel Lipids [facility] Start: 12-20-1989 PNEUMOCOCCAL (1 - PCV) PNEUMOCOCCAL (1 - PCV) [facility] Start: 12-20-1989 Pneumococcal 0-64 years Vaccine (1 - PCV) Pneumococcal 0-64 years Vaccine (1 - PCV) [facility] Start: 12-20-1989 Pneumococcal 0-64 years Vaccine (1 of 2 - PCV) Pneumococcal 0-64 years Vaccine (1 of 2 - PCV) [facility] Start: 12-20-1989 Pneumococcal 0-64 years Vaccine (1 of 2 - PPSV23) Pneumococcal 0-64 years Vaccine (1 of 2 - PPSV23) [facility] Start: 12-20-1989 Pneumococcal vaccination Pneumococcal Vaccine (1 of 2 - PCV) [facility] Start: 12-20-1988 COVID-19 VACCINE (#1) COVID-19 VACCINE (#1) [facility] Start: 12-20-1988 COVID-19 Vaccine (1) COVID-19 Vaccine (1) [facility] Start: 12-20-1984 Varicella vaccine (1 of 2 - 2-dose childhood series) Varicella vaccine (1 of 2 - 2-dose childhood series) [facility] Start: 06-19-1984 COVID-19 VACCINE (#1) COVID-19 VACCINE (#1) [facility] Start: 1983 HEPATITIS B (1 of 3 - 3-dose series) HEPATITIS B (1 of 3 - 3-dose series) [facility] Start: 1983 Hepatitis C screening Hepatitis C screen [facility] ACTIGRAPHY TESTING ACTIGRAPHY TE STING Procedures Routine Shift work sleep disorder Poor sleep pattern 1 Occurrences starting 11/16/2021 [facility] Work Phone: Comment on above: 1 Occurrences starting 11/16/2021 End: 10-28-2025 AMB Videostroboscopy AMB Videostroboscopy Imaging Routine Vocal cord dysfunction 1 Occurrences starting 10/28/2024 until 10/28/2025 [employer] Work Phone: Comment on above: 1 Occurrences starting 10/28/2024 until 10/28/2025 Ambulatory bp mntr w /sw 24 hr+ rec scan ewa i&r AMBULATORY BP MONITORING Cardiology Routine Blood pressure instability Ordered: 07/21/2021 [facility] Work Phone: Comment on above: Ordered: 07/21/2021 BLOOD CULTURE 1 BLOOD CULTURE 1 Lab Routine 02/20/2024 2:16 PM EST [facility] [employer] BLOOD CULTURE 2 BLOOD CULTURE 2 Lab Routine 02/20/2024 2:17 PM EST [facility] [employer] Cardiovascular funct ion eval w/tilt table w/mntr TILT TABLE EVALUATION Cardiology Routine Palpitations Symptomatic bradycardia Orthostatic intolerance Ordered: 10/20/2021 [facility] Work Phone: Comment on above: Ordered: 10/20/2021 Cytology Cervical or vaginal smear or scraping study Pap Smear Pathology and Cytology Routine Well woman exam with routine gynecological exam Ordered: 11/20/2023 [facility] [employer] Work Phone: Comment on above: Ordered: 11/20/2023 End: 07-21-2022 Echocardiography ECHO Cardiology Routine Symptomatic bradycardia Blood pressure instability History of COVID-19 1 Occurrences starting 07/21/2021 until 07/21/2022 [facility] Work Phone: Comment on above: 1 Occurrences starting 07/21/2021 until 07/21/2022 EKG 12 Lead EKG 12 Lead ECG STAT 11/01/2020 4:26 PM EDT [employer] Work Phone: EKG 12 Lead EKG 12 Lead ECG STAT 04/16/2021 8:11 PM EST [employer] Work Phone: EKG 12 Lead EKG 12 Lead ECG STAT 06/21/2021 12:06 AM EDT [employer] Work Phone: Human papilloma viru s DNA [Presence] in Unspecified specimen by Probe with amplification HPV DNA probe, amplified Microbiology Routine Well woman exam with routine gynecological exam Ordered: 11/20/2023 [facility] Comment on above: Ordered: 11/20/2023 End: 10-19-2022 LUNG DIFFUSION CAPACITY (DLCO) LUNG DIFFUSION CAPACITY (DLCO) PFT Routine History of COVID-19 Post-acute sequelae of COVID-19 (PASC) SOB (shortness of breath) Chronic cough Chest discomfort Palpitation CAVANAUGH (dyspnea on exertion) Dizziness Near syncope Night sweats Orthopnea Anxiety Myalgia Pain in joint, multiple sites 1 Occurrences starting 09/19/2021 until 10/19/2022 [facility] Work Phone: Comment on above: 1 Occurrences starting 09/19/2021 until 10/19/2022 End: 10-19-2022 LUNG VOLUMES LUNG VOLUMES PFT Routine History of COVID-19 Post-acute sequelae of COVID-19 (PASC) SOB (shortness of breath) Chronic cough Chest discomfort Palpitation CAVANAUGH (dyspnea on exertion) Dizziness Near syncope Night sweats Orthopnea Anxiety Myalgia Pain in joint, multiple sites 1 Occurrences starting 09/19/2021 until 10/19/2022 [facility] Work Phone: Comment on above: 1 Occurrences starting 09/19/2021 until 10/19/2022 End: 12-27-2023 Mumps Antibody, IgG Bon [facility] [employer] Comment on above: Once for 1 Occurrences starting 12/27/19 24 until 12/27/2023 End: 01-05-2023 NITRIC OXIDE, EXHALED NITRIC OXIDE, EXHALED PFT Routine Moderate persistent asthma without complication SOB (shortness of breath) Post-acute sequelae of COVID-19 (PASC) 1 Occurrences starting 12/06/2021 until 01/05/2023 [facility] Work Phone: Comment on above: 1 Occurrences starting 12/06/2021 until 01/05/2023 OUTSIDE VENDOR CARDI AC OUTPATIENT EXTENDED RHYTHM RECORDING (WITHOUT TELEMETRY) OUTSIDE VENDOR CARDIAC OUTPATIENT EXTENDED RHYTHM RECORDING (WITHOUT TELEMETRY) Holter Routine Palpitations Symptomatic bradycardia Orthostatic lightheadedness Diffuse pain Blood pressure instability Decreased activity tolerance Orthostatic intolerance Moderate persistent asthma without complication Physical deconditioning Ordered: 10/20/2021 [facility] Work Phone: Comment on above: Ordered: 10/20/2021 End: 12-16-2022 PAP NAP PSG (CPAP, BILEVEL, ASV) PAP NAP PSG (CPAP, BILEVEL, ASV) Procedures Routine KATELIN on CPAP Poor compliance with CPAP treatment 1 Occurrences starting 11/16/2021 until 12/16/2022 [facility] Work Phone: Comment on above: 1 Occurrences starting 11/16/2021 until 12/16/2022 End: 12-16-2022 PAP TITRATION PSG (CPAP, BIPAP, ASV) PAP TITRATION PSG (CPAP, BIPAP, ASV) Procedures Routine KATELIN on CPAP 1 Occurrences starting 11/16/2021 until 12/16/2022 [facility] Work Phone: Comment on above: 1 Occurrences starting 11/16/2021 until 12/16/2022 End: 02-17-2022 PLATELET ELECT.MICRO BON [facility] Work Phone: Comment on above: Once [...] sites 1 Occurrences starting 09/19/2021 until 10/19/2022 [facility] Work Phone: Comment on above: 1 Occurrences starting 09/19/2021 until 10/19/2022 End: 12-27-2023 Rubeola Antibody, IgG Bon [facility] Work Phone: Comment on above: Once for 1 Occurrences starting 12/27/19 until 12/27/2023 End: 10-19-2022 SIX MINUTE WALK SIX MINUTE WALK PFT Routine History of COVID-19 Post-acute sequelae of COVID-19 (PASC) SOB (shortness of breath) Chronic cough Chest discomfort Palpitation CAVANAUGH (dyspnea on exertion) Dizziness Near syncope Night sweats Orthopnea Anxiety Myalgia Pain in joint, multiple sites 1 Occurrences starting 09/19/2021 until 10/19/2022 [facility] Work Phone: Comment on above: 1 Occurrences starting 09/19/2021 until 10/19/2022 SIX MINUTE WALK SIX MINUTE WALK PFT Routine History of COVID-19 Post-acute sequelae of COVID-19 (PASC) SOB (shortness of breath) Chronic cough Chest discomfort Palpitation CAVANAUGH (dyspnea on exertion) Dizziness Near syncope Night sweats Orthopnea Anxiety Myalgia Pain in joint, multiple sites 09/27/2021 8:23 AM EDT [facility] Work Phone: End: 10-19-2022 SPIROMETRY - BASELINE AND POST DILATOR SPIROMETRY - BASELINE AND POST DILATOR PFT Routine History of COVID-19 Post-acute sequelae of COVID-19 (PASC) SOB (shortness of breath) Chronic cough Chest discomfort Palpitation CAVANAUGH (dyspnea on exertion) Dizziness Near syncope Night sweats Orthopnea Anxiety Myalgia Pain in joint, multiple sites 1 Occurrences starting 09/19/2021 until 10/19/2022 [facility] Work Phone: Comment on above: 1 Occurrences starting 09/19/2021 until 10/19/2022 End: 01-05-2023 SPIROMETRY - BASELINE AND POST DILATOR SPIROMETRY - BASELINE AND POST DILATOR PFT Routine Moderate persistent asthma without complication SOB (shortness of breath) Post-acute sequelae of COVID-19 (PASC) 1 Occurrences starting 12/06/2021 until 01/05/2023 [facility] Work Phone: Comment on above: 1 Occurrences starting 12/06/2021 until 01/05/2023 End: 05-07-2024 Thyroid profile includes TSH FT4 Thyroid profile includes TSH FT4 Lab Routine 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 1 Occurrences starting 05/08/2023 until 05/07/2024 [employer] Work Phone: Comment on above: 1 Occurrences starting 05/08/2023 until 05/07/2024 End: 11-21-2024 Thyrotropin [Units/volume] in Serum or Plasma TSH Lab Routine 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 1 Occurrences starting 11/22/2023 until 11/21/2024 [employer] Work Phone: Comment on above: 1 Occurrences starting 11/22/2023 until 11/21/2024 End: 11-21-2024 Thyroxine (T4) free [Mass/volume] in Serum or Plasma T4, free Lab Routine 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 1 Occurrences starting 11/22/2023 until 11/21/2024 [employer] Comment on above: 1 Occurrences starting 11/22/2023 until 11/21/2024 End: 10-19-2022 Us chest real time w/image documentation US CHEST WALL/SOFT TISSUE Radiology Routine Post-acute sequelae of COVID-19 (PASC) Mass of left axilla 1 Occurrences starting 09/19/2021 until 10/19/2022 [facility] Work Phone: Comment on above: 1 Occurrences starting 09/19/2021 until 10/19/2022 End: 09-15-2022 Us pelvic nonobstetric image dcmtn limited/f/u US [employer] Radiology Routine Chronic RLQ pain 1 Occurrences starting 08/16/2021 until 09/15/2022 [facility] Work Phone: Comment on above: 1 Occurrences starting 08/16/2021 until 09/15/2022 End: 09-14-2022 US SOFT TISSUE ABDOMEN US SOFT TISSUE ABDOMEN Radiology Routine Chronic RLQ pain 1 Occurrences starting 08/15/2021 until 09/14/2022 [facility] Work Phone: Comment on above: 1 Occurrences starting 08/15/2021 until 09/14/2022 End: 12-27-2023 Varicella Zoster Antibody, IgG Bon [facility] Comment on above: Once for 1 Occurrences starting 12/27/19 until 12/27/2023 [facility] c [facility] c [facility] c [facility] c [facility] c [facility] c [facility] c [facility] c [facility] c [facility] c [facility] c [facility] Immunizations Immunization Date Immunization Notes Care Provider [facility] 11-20-2019 influenza virus vaccine, H5N1, A/[place] (national stockpile) Cas Dowell MD Work Phone: [facility] 11-20-2019 influenza virus vaccine, unspecified formulation Araseli Barrett MD Work Phone: [facility] Work Phone: 11-20-2019 influenza, unspecified formulation LORAINE BURNHAM [facility] 11-06-2019 influenza virus vaccine, unspecified formulation LORAINE BURNHAM [facility] 11-06-2019 influenza, high dose seasonal, preservative-free Yan Bass MD Work Phone: [facility] 10-27-2019 influenza virus vaccine, unspecified formulation LORAINE BURNHAM [facility] 10-27-2019 influenza, injectable, quadrivalent, preservative free Yan Bass MD Work Phone: [facility] NEGATED: Highlighted row has not occurred!01-04-2023 influenza virus vaccine, unspecified formulation Selma Choe [facility] [place] Payers Date Payer Category Payer Unknown [id number] 2022 Blue Cross Blue Shield [id number] 2022 Blue [employer] Managed Care - PPO [id number] 2022 Private Health Insurance [id number] 2022 Unknown [id number] 2022 Unknown [id number] 2022 Unknown [id number] 2014 Unknown MMO MMO [employer] [id number] 2014-Present [phone] [address] [place] [address] PPO [id number] 2014 Unknown [id number] 1983 Unknown [id number] 2.16.840.1.711005.3.579.2.1 74 1983 Unknown [id number] 2.16.840.1.813576.3.579.2.1 74 1983 Unknown [id number] 2.16.840.1.459609.3.579.2.1 75 1983 Unknown [id number] 2.16.840.1.286784.3.579.2.5 93 1983 Unknown [id number] 2.16.840.1.970811.3.579.2.5 93 1983 Unknown [id number] 2.16.840.1.218494.3.579.2.5 93 1983 Unknown [id number] 2.16.840.1.468278.3.579.2.5 93 1983 Unknown [id number] 2.16.840.1.750562.3.579.2.5 93 1983 Unknown [id number] 2.16.840.1.541553.3.579.2.5 93 1983 Unknown [id number] 2.16.840.1.838696.3.579.2.5 93 1983 Unknown [id number] 2.16.840.1.048914.3.579.2.5 93 1983 Unknown [id number] 2.16.840.1.143909.3.579.2.5 93 1983 Unknown [id number] 2.16.840.1.294240.3.579.2.5 93 1983 Unknown [id number] 2.16.840.1.568083.3.579.2.5 93 1983 Unknown [id number] 2.16.840.1.773855.3.579.2.5 93 1983 Unknown [id number] 2.16.840.1.156496.3.579.2.1 286 1983 Unknown [id number] 2.16.840.1.825842.3.579.2.1 286 1983 Unknown [id number] 2.16.840.1.411465.3.579.2.1 286 1983 Unknown [id number] 2.16.840.1.720657.3.579.2.1 286 1985 Unknown [id number] 2.16840.1.299486.3.579.2.1 286 1985 Unknown [id number] 2.840.1.814984.3.579.2.1 73 1983 Unknown [id number] 2.16840.1.631375.3.579.2.1 73 1983 Unknown [id number] 2.16840.1.091891.3.579.2.1 73 1983 Unknown [id number] 2.16840.1.777012.3.579.2.1 259 1983 Unknown [id number] 2840.1.020029.3.579.2.1 259 1983 Unknown [id number] 2.16840.1.191062.3.579.2.1 259 1983 Unknown [id number] 2.16840.1.980150.3.579.2.1 259 1983 Unknown [id number] 2.16.840.1.171284.3.579.2.1 259 1983 Unknown [id number] 2.16840.1.569145.3.579.2.1 259 1983 Unknown [id number] 2.16.840.1.283479.3.579.2.1 259 1983 Unknown [id number] 2.16.840.1.725757.3.579.2.1 259 1983 Unknown [id number] 2.16.840.1.140716.3.579.2.7 27 1983 Unknown [id number] 2.16.840.1.022727.3.579.2.7 27 1983 Unknown [id number] 2.16.840.1.937103.3.579.2.1 286 1983 Unknown [id number] 2.16.840.1.965458.3.579.2.1 286 1983 Unknown [id number] 2.16.840.1.562053.3.579.2.1 96 1983 Unknown [id number] 2.16.840.1.923120.3.579.2.1 96 1983 Unknown [id number] 2.16.840.1.142537.3.579.2.1 96 1983 Unknown [id number] 2.16.840.1.803835.3.579.2.1 96 1959 Unknown [id number] 1.2.840.271961.1.13.239.2.7 .3.779721.315 1959 Unknown [id number] 1.2.840.764421.1.13.239.2.7 .3.952696.315 Unknown [facility] [id number] Social History Date Type Detail Facility Start: 06-13-2020 End: 04-10-2022 Tobacco smoking status PAIS Never smoker [employer] Phone: Start: 06-13-2020 End: 04-17-2024 Alcohol intake Current non-drinker of alcohol (finding) [employer] Phone: Start: 1985 Sex Assigned At Not on file [employer] Work Phone: Start: 05-10-2021 End: 01-30-2022 Exposure to SARS-CoV-2 (event) Not sure [employer] Start: 08-30-2020 End: 04-10-2022 Tobacco use and exposure Never used [employer] Start: 05-24-2021 End: 07-01-2021 Alcohol intake Current drinker of alcohol (finding) [facility] Start: 02-23-2014 History SDOH Alcohol Comment rarely uses alcohol [facility] Start: 1985 Sex Assigned At Female [facility] Start: 07-22-2021 End: 10-29-2024 Alcohol intake Ex-drinker (finding) [facility] Start: 09-17-2021 End: 09-27-2021 Exposure to SARS-CoV-2 (event) Unable to assess [facility] History of tobacco use Passive smoker [facility] Start: 02-20-2014 Tobacco smoking status Never [facility] Start: 03-18-2020 End: 10-02-2022 Sex Assigned At Female [facility] Start: 03-18-2020 End: 10-02-2022 History of Social function [facility] Start: 09-26-2020 Gender identity Identifies as female gender (finding) [facility] Start: 09-26-2020 Sexual orientation Heterosexual (finding) [facility] Start: 01-16-2023 End: 02-27-2024 Alcohol intake [...] Start: 03-17-2012 End: 09-10-2014 Sex Female (finding) [facility] Within the last year , have [...] to get more. Never true [facility] Sexual Orientation [facility] Functional Status Date Assessment Result Facility 08-08-2024 Total score [AUDIT-C] 0 08/09/19 11:04 AM EDT Mychart, Generic [facility] 08-08-2024 How often to you hav e a drink containing alcohol? Never 08/08/2024 11:04 AM EDT Mychart, Generic Never [facility] 08-08-2024 Functional status Patient does n ot drink 08/08/2024 11:04 AM EDT Mychart, Generic Patient does not drink [facility] 08-08-2024 How often do you hav e 6 or more drinks on 1 occasion? Never 08/08/2024 11:04 AM EDT Mychart, Generic Never [facility] 10-02-2023 Functional Status N/A [facility] 09-05-2022 Functional Status N/A [facility] 02-28-2022 Functional Status N/A [facility] 01-20-2022 Functional Status N/A [facility] 2021 Functional Status N/A [facility] 02-23-2014 Are you deaf, or do you have serious difficulty hearing No 02/23/2014 2:04 PM Keke Page, ALIZE No [facility] 02-23-2014 Are you blind, or do you have serious difficulty seeing, even when wearing glasses No 02/23/2014 2:04 PM INES Thompson, [place], [place] No [facility] 02-23-2014 Do you have serious difficulty walking or climbing stairs No 02/23/2014 2:04 PM INES Thompson, [place], [place] No [facility] 02-23-2014 Do you have difficul ty dressing or bathing No 02/23/2014 2:04 PM INES Thompson, [place], [place] No [facility] 02-23-2014 Because of a physica l, mental, or emotional condition, do you have difficulty doing errands alone such as visiting a physician's office or shopping No 02/23/2014 2:04 PM INES Thompson, [place], [place] No [facility] Mental Status Date Assessment Result Facility 02-23-2014 Because of a physica l, mental, or emotional condition, do you have serious difficulty concentrating, remembering, or making decisions No 02/23/2014 2:04 PM INES Thompson, [place], [place] No [facility] Clinical Notes 09-06-2020 to 10-28-2024 Terri Han MD - 10/28/2024 8:15 AM EDTPatiMargot Wray APRN.JAVA MOBILE DEVELOPER - 09/30/2024 9:01 AM Zurdo Dowell MD - 09/25/2024 4:41 PM Zurdo Dowell MD - 09/25/2024 4:41 PM EDT Note Date & Type Note Facility 10-28-2024 History of Present illness Narrative [facility] [address] [place] [address], [address] [id number] SUBJECTIVE: Patient ID: Leana Tran is a [...] though. I was able to review the engineering group manager's records which noted negative testing. Merchandise Execution Leader was concerned for vocal cord dysfunction as contributing factor to dyspnea and desaturation episodes that result in hospitalization at times. She saw speech therapy again at a different location per engineering group manager recommendations, but she was not scoped nor specifically evaluated for vocal cord dysfunction. She has also had multiple asthma attacks. She has been using Flonase Sensimist morning and night as well as nasal saline occasionally as needed. HISTORY: Past Medical History: Diagnosis Date Allergic 1991 Allergic rhinitis 1990 Anxiety Asthma Back pain 1995 Bradycardia Chest pain Clotting disorder 1983 COVID Depression Diabetes mellitus ([facility]) Diabetes mellitus type 2, controlled ([facility]) Eczema 2006 Elevated troponin [...] Resource Strain: Medium Risk (08/08/2024) Received from [facility] Overall Financial Resource Strain (CARDIA) Difficulty of Paying Living Expenses: Somewhat hard Food Insecurity: Food Insecurity Present (08/08/2024) Received from [facility] Hunger Vital Sign Worried About Running Out of Food in the Last Year: Sometimes true Ran Out of Food in the Last Year: Never true Transportation Needs: No Transportation Needs (08/08/2024) Received from [facility] PRAPARE - Transportation Lack of Transportation (Medical): No Lack of Transportation (Non-Medical): No Physical Activity: Sufficiently Active (08/08/2024) Received from [facility] Exercise Vital Sign Days of Exercise per Week: 6 days Minutes of Exercise per Session: 60 min Stress: Stress Concern Present (08/08/2024) Received from [facility] [place] of Occupational [facility] - Occupational Stress Questionnaire Feeling of Stress : Very much Social Connections: Unknown (08/08/2024) Received from [facility] Social Connection and Isolation Panel [NHANES] Frequency of Communication with Friends and Family: More than three times a week Frequency of Social Gatherings with Friends and Family: Patient declined Attends Mandaen Services: Patient declined Active Member of Clubs or Organizations: No Attends Club or Organization Meetings: Patient declined Marital Status: Interpersonal Safety: Unknown (08/08/2024) Received from [facility] Humiliation, Afraid, Rape, and Kick questionnaire Fear of Current or Ex-Partner: No Emotionally Abused: Patient declined Physically Abused: No Sexually Abused: No Housing Instability: Low Risk (08/08/2024) Received from [facility] Housing Stability Vital Sign Unable to Pay [...] without contrast; Future Vocal cord dysfunction - [facility] Speech Pathology - Vocal Cord Dysfunction Eval/Treat; Future - AMB Videostroboscopy; Future Geographic tongue Hypertrophy of both inferior nasal turbinates Tympanosclerosis, bilateral Severe persistent asthma without complication ([facility]) Today's examination findings were discussed with the [...] or concerns: . Non-emergent messages received through [employer] may take up to 2 business days [...] this chart were generated using voice recognition MLocatrix 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Modal dictation software. Although every effort was made to ensure the accuracy of this automated overhead distribution engineer, some errors in overhead distribution engineer may have occurred. documented in this encounter [facility] Instructions Sharon Gilliland - 10/28/2024 8:15 [...] or concerns: . Non-emergent messages received through [employer] may take up to 2 business days for a response. [facility] Discharge instructions Patient Education 10/09/2024 [...] provider. Document Revised: 02/10/2022 Document Reviewed: 02/10/2022 [employer] Patient Education 2023 [employer]. 10/09/2024 13:05:34 Kidney Stones, Pbdq-eh-Sgju Kidney Stones Kidney stones are rock-like masses [...] Follow these instructions at home: Medicines Take qrdd-gbn-oqxjuso and prescription medicines only as told by [...] Kidney Foundation (NKF): kidney.org Urology Care Foundation (UCF): urologyhealth.org Contact a doctor if: You have [...] provider. Document Revised: 09/15/2022 Document Reviewed: 09/15/2022 Elsevier Patient Education 2023 MILI. Follow Up Care 09/17/2024 12:37:38 With:CHELO Choe APRN, NEREYDA Gusman, URL Address: When: Unknown Comments:[address] [facility] 10-09-2024 Note Patient Education Dermatology Lipoma A [...] provider. Document Revised: 02/10/2022 Document Reviewed: 02/10/2022 [employer] Patient Education ? 2023 MILI. Urology Kidney Stones Kidney stones are rock-like [...] Pain when peeing. (more content not included)... [facility] 09-30-2024 Note HNO ID: [id number] Author: MARGOT LIMON APRN.JAVA MOBILE DEVELOPER Service: ? Author Type: Nurse Practitioner Type: Progress Notes Filed: 09/30/2024 10:24 Note Text: NAME: Leana Tran CLINIC NO.: [id number] DATE OF SERVICE: September 30, 2024 (Sonam) [...] basis with min (more content not included)... [facility] 09-30-2024 History of Present illness Narrative Images from the original note were not included. 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 [facility] She does not know her family [...] HX 2010 PAST SURGICAL HISTORY OF Insertable Safety Engineer Pressure Vessels REMOVAL GALLBLADDER TUBAL LIGATION HX Social History Tobacco Use Smoking status: Never Passive exposure: Past Smokeless tobacco: Never Vaping Use Vaping status: Never Used Substance Use Topics Alcohol use: Not Currently Drug use: Not Currently FAMILY HISTORY Problem Relation Age of Onset Diabetes Mother uncontrolled Hypertension Mother Heart Attack Mother First [place] at age 51 Cardiomyopathy Mother at age [...] which included preparing to see the patient, bnib-jq-whmv patient care, completing clinical documentation, obtaining and/or reviewing separately obtained history, performing a medically appropriate examination, counseling and educating the patient/family/caregiver, communicating with other HCPs (not separately reported), independently interpreting results (not separately reported), and communicating results to the patient/family/caregiver. Margot Limon APRN, GRINDER OPERATOR-C, OCN Hematology and Oncology Services Provided at: [place], [place] CC: Cas Cronin documented in this encounter [facility] 09-25-2024 History of Present illness Narrative [...] 2 views right documented in this encounter [facility] 09-08-2024 Evaluation note Diagnosis Onset Date Resolution Right forearm injury acute Augu st 2024 11:37am [facility] Work Phone: [phone] History of Present illness Narrative* Abimbola Saucedo - 08/22/2024 10:30 AM EDT Explained policies and procedures of an echocardiogram/doppler study. 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 Hx Cesar autoimmune thyroid disease, celiac disease. She underwent an implantable loop recorder for termination clerk cardiac rhythm monitoring due to syncope in [...] Telehealth Audio/video Visit The visit was conducted [id number]-[id number] with the use of audio and video technology using HIPAA approved [employer]ok[employer] WebEX between patient and the provider for [...] Clinic Nurse Practitioner Division of Cardiovascular Medicine [facility] 08-11-2024 Miscellaneous Notes* Telephone Encounter - Alina Garcia CMA - 08/11/2024 11:33 AM EDT LAST OV 07/01/2024 NEXT OV 12/26/2024 [facility] Telephone encounter Note* Telephone Encounter - Alina Garcia CMA - 08/11/2024 11:33 AM EDT LAST OV 07/01/2024 NEXT OV 12/26/2024 [facility]07-07-2025 History of Present illness Narrative* Cas Dowell [...] TSH Comprehensive metabolic panel documented in this encounterP[facility] [id number] History of Present illness Narrative* PONCE Gerardo [...] Examined Right arm Examined Patient wearing nail salvadorean, Denies dark streaks under finger nails, Denies [...] Next Visit: 1 year documented in this encounterP[facility] [id number] History of Present illness Narrative* Marni Flowers, LIO-JAVA MOBILE DEVELOPER - 07/01/2024 9:00 AM EDT Subjective: Patient [...] fatigue. Headaches: She is a patient with [facility] Neurology. 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 Current Visit: Seen in June 2024, she presents for a [facility] follow up visit. She logged on and consents to telehealth services. She verifies she is in [place]. She feels that her headaches have been [...] pain 1995 Bradycardia Chest pain Clotting disorder ([facility]) 1983 COVID Depression Diabetes mellitus ([facility]) Diabetes mellitus type 2, controlled ([facility]) Eczema 2006 Elevated troponin [...] Resource Strain: Medium Risk (04/08/2023) Received from [facility] Overall Financial Resource Strain (CARDIA) Difficulty of Paying Living Expenses: Somewhat hard Food Insecurity: No Food Insecurity (11/22/2023) Hunger Screening Food Insecurity - Worry: Never True Food Insecurity - Inability: Never True Transportation Needs: No Transportation Needs (04/08/2023) Received from [facility] PRAPARE - Transportation Lack of Transportation (Medical): No Lack of Transportation (Non-Medical): No Physical Activity: Insufficiently Active (04/08/2023) Received from [facility] Exercise Vital Sign Days of Exercise per Week: 4 days Minutes of Exercise per Session: 20 min Stress: No Stress Concern Present (04/08/2023) Received from [facility] [place] [facility] [employer]ational [facility] - Occupational Stress Questionnaire Feeling of Stress : Only a little Social Connections: Unknown (04/08/2023) Received from [facility] Social Connection and Isolation Panel [NHANES] Frequency of Communication with Friends and Family: More than three times a week Frequency of Social Gatherings with Friends and Family: Once a week Attends Mandaen Services: Patient declined Active Member of Clubs or Organizations: Patient declined Attends Club or Organization Meetings: Patient declined Marital Status: Interpersonal Safety: Not At Risk (01/10/2023) Received from [facility] Humiliation, Afraid, Rape, and Kick questionnaire Fear of Current or Ex-Partner: No Emotionally Abused: No Physically Abused: No Sexually Abused: No Housing Instability: Patient Declined (04/08/2023) Received from [facility] Housing Stability Vital Sign Unable to Pay [...] what day of the week it is. [facility] in [place]--Neurology. Level of consciousness: alert. Knowledge: good and consistent with education. Intact short-term memory and intact long-term memory. Vocabulary is normal. 01/11/41=no idea 10/16/2000= the twin towers in [place] fell down because a plane hit them. [...] dorsiflexors: 4/5 Left foot dorsiflexors: 4/5 Right purchase price analyst strength: WeakMild generalized weakness Fasciculations: None Myotonia: [...] in June 2024, she presents for a [facility] follow up visit. She logged on and consents to telehealth services. She verifies she is in [place]. 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 Call the office at [phone] or send a [employer] message if you develop any of these problems. #9. Ubrelvy 100 mg tablets. Take 1 tablet at the onset of a headache. You can repeat this once 2 hours later. Do not take more than 2 doses in 24[place] [id number] to [place] co-pay card. #10. Prednisone 20 mg tablets. Take 4 tablets (2 +2) for 5 days with food and a low sodium diet. This can cause upset stomach, mood swings, irritability, weight gain, susceptibility to infections, etc. #11. Return for follow-up in 6 months (December 26, 2024 at 10:15 AM), earlier if needed. --[id number] [place] [address] Total time spent was 20 minutes: Preparing to see the patient (e.g., review of tests) Obtaining and/or reviewing separately obtained history Performing a medically appropriate examination and/or evaluation Counseling and educating the patient/family/caregiver Ordering medications, tests, or procedures Referring and communicating with other health medicare specialist (not separately reported) Documenting clinical information in the electronic or other health record Independently interpreting results (not separately reported) and communicating results to the patient/family/caregiver Care coordination (not separately reported) - Marni Flowers DNP, APRN-CNP 07/01/24 9:13 AM DEX [place] 01/02/24 1034 DEX [place] 07/01/24 0913 documented in [facility] encounter[facility] Instructions* Patient Instructions* DEX Oleary - 07/01/2024 [...] other cognitive dysfunction. Call the office at [phone] or send a [employer] message if you develop any of these problems. #9. Ubrelvy 100 mg tablets. Take 1 tablet at the onset of a headache. You can repeat this once 2 hours later. Do not take more than 2 doses in 24-[place] [id number] to activate co-pay card. #10. Prednisone 20 mg tablets. Take 4 tablets (2 +2) for 5 days with food and a low sodium diet. This can cause upset stomach, mood swings, irritability, weight gain, susceptibility to infections, etc. #11. Return for follow-up in 6 months (December 26, 2024 at 10:15 AM), earlier if needed. --[id number] [id number] documented in this encounterReg[facility]04-14-2025 Telephone encounter Note* Telephone Encounter - Cas Dowell MD - 05/19/2024 11:49 AM EDT New script sent. [facility] [id number] Miscellaneous Notes* Telephone Encounter - Cas Dowell MD - 05/19/2024 11:49 AM EDT New script sent. * Telephone Encounter - Lorene Perdomo MA - 05/19/2024 9:17 AM EDT Patient sent message, states insurance is no longer covering onglyza, needs new script for Januvia.clm documented in this encounterPemiscot Memorial Health [id number] Telephone encounter Note* Telephone Encounter - Lorene Perdomo MA - 05/19/2024 9:17 AM EDT Patient sent message, states insurance is no longer covering onglyza, needs new script for clm [facility] [id number] History of Present illness Narrative* Cas Dowell [...] 38 y.o. female who presents for Follow-up (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 [...] (BMI) of 37.0 to 37.9 in adult ([facility]) Weight loss indicated * Cas Dowell MD [...] and albuterol PRN which helps. Seen by engineering group manager and added spiriva. PFTs abnormal. Following with [...] (major depressive disorder), recurrent episode, mild (HCC) ([facility]) Symptoms stable and follow with psychiatry. Type 2 diabetes mellitus with hyperglycemia, without long-term current use of insulin ([facility]) - Primary Reports BS controlled and due for A1C. Stick to ADA diet and limit carbs. Relevant Medications sAXagliptin (Onglyza) 5 MG tablet Other Relevant Orders Hemoglobin A1c Gastroesophageal reflux disease No symptoms Moderate persistent asthma without complication ([facility]) Breathing stable with symbicort and continue. Use albuterol PRN. Relevant Medications levalbuterol (Xopenex HFA) 45 MCG/ACT inhaler Chronic juos-VMEZS-42 syndrome No change in symptoms and monitor. Edema of both legs Edema stable and elevate legs PRN. Class 2 severe obesity due to excess calories with serious comorbidity and body mass index (BMI) of37.0 to 37.9 in adult ([facility]) Weight loss indicated documented in this encounterPemiscot Memorial Health [id number] Miscellaneous Notes* [facility]02/[facility] 12:33 PM ESTSummary: Sample Medication Marni gave 3 Ajovy samples with a lot number of [id number] and expiration date of 07/2024. Please attachinformation to the patients chart. documented in this encounterReg[facility]11-27-2024 Telephone encounter Note* Telephone Encounter - Camillebubba James - 01/02/2024 12:33 PM ESTSummary: Sample Medication Marni gave 3 Ajovy samples with a lot number of [id number] and expiration date of 07/2024. Please attachinformation to the patients chart. [facility] [employer] [id number] History of Present illness Narrative* Marni Flowers, SUPERVISOR PASTE PLANT-JAVA MOBILE DEVELOPER - 01/02/2024 10:30 AM EST Subjective: Patient [...] fatigue. Headaches: She is a patient with [facility] Neurology. 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 She last [...] pain 1995 Bradycardia Chest pain Clotting disorder ([facility]) 1984 COVID Depression Diabetes mellitus ([facility]) Diabetes mellitus type 2, controlled ([facility]) Eczema 2006 Elevated troponin [...] Resource Strain: Medium Risk (04/08/2023) Received from [facility], [facility] Overall Financial Resource Strain (CARDIA) Difficulty of Paying Living Expenses: Somewhat hard Food Insecurity: No Food Insecurity (11/22/2023) Hunger Screening Food Insecurity - Worry: Never True Food Insecurity - Inability: Never True Transportation Needs: No Transportation Needs (04/08/2023) Re[facility] from [facility] PRAPARE - Transportation Lack of Transportation (Medical): No Lack of Transportation (Non-Medical): No Physical Activity: Insufficiently Active (04/08/2023) Received from [facility] Exercise Vital Sign Days of Exercise per Week: 4 days Minutes of Exercise per Session: 20 min Stress: No Stress Concern Present (04/08/2023) Received from [facility] [place] of Occupational Health - Occupational Stress Questionnaire Feeling of Stress : Only a little Social Connections: Unknown (04/08/2023) Received from [facility] Social Connection and Isolation Panel [NHANES] Frequency of Communication with Friends and Family: More than three times a week Frequency of Social Gatherings with Friends and Family: Once a week Attends Mandaen Services: Patient declined Active Member of Clubs or Organizations: Patient declined Attends Club or Organization Meetings: Patient declined Marital Status: Interpersonal Safety: Not At Risk (01/10/2023) Received from [facility], [facility] Humiliation, Afraid, Rape, and Kick questionnaire Fear of Current or Ex-Partner: No Emotionally Abused: No Physically Abused: No Sexually Abused: No Housing Instability: Patient Declined (04/08/2023) Received from [facility] Housing Stability Vital Sign Unable to Pay [...] what day of the week it is. [facility] in [place]--Neurology. Level of consciousness: alert. Knowledge: good and consistent with education. Intact short-term memory and intact long-term memory. Vocabulary is normal. 01/11/41=no idea 10/16/2000= the twin towers in [place] fell down because a plane hit them. [...] dorsiflexors: 4/5 Left foot dorsiflexors: 4/5 Right purchase price analyst strength: WeakMild generalized weakness Fasciculations: None Myotonia: [...] other cognitive dysfunction. Call the office at [phone] or send a Vestmark message if you develop any of these problems. #9. Ubrelvy 100 mg tablets. Take 1 tablet at the onset of a headache. You can repeat this once 2 hours later. Do not take more than 2 doses in 24[place] [address] to [place] co-pay card. #10. Return for follow-up in 6 months, earlier if needed. Total time spent was 20 minutes: Preparing to see the patient (e.g., review of tests) Obtaining and/or reviewing separately obtained history Performing a medically appropriate examination and/or evaluation Counseling and educating the patient/family/caregiver Ordering medications, tests, or procedures Referring and communicating with other health medicare specialist (not separately reported) Documenting clinical information in the electronic or other health record Independently interpreting results (not separately reported) and communicating results to the patient/family/caregiver Care coordination (not separately reported) - Marni Flowers DNP, APRN-CNP 01/02/24 10:34 AM DEX Oleary 01/02/24 1034 documented in this encounterVermont State HospitalPresenterNet [id number] Instructions* Patient Instructions* DEX Oleary - 01/02/2024 [...] other cognitive dysfunction. Call the office at [phone] or send a Vestmark message if you develop any of these problems. #9. Ubrelvy 100 mg tablets. Take 1 tablet at the onset of a headache. You can repeat this once 2 hours later. Do not take more than 2 doses in [place] [address] to [place] co-pay card. #10. Return for follow-up in 6 months, earlier if needed. documented in this [facility]10-31-2024 Miscellaneous Notes* Telephone Encounter - Pat Heck - 12/06/2023 6:29 AM EDTSummary: Med refill request Jefry Douglas. Pat documented in this [facility]10-31-2024 Telephone encounter Note* Telephone Encounter - Pat Heck - 12/06/2023 6:29 AM EDT Summary: Med refill request Jefry Douglas. Pat [facility]10-17-2024 History of Present illness Narrative* Akila Yao [...] pain 1995 Bradycardia Chest pain Clotting disorder ([facility]) 1984 COVID Depression Diabetes mellitus ([facility]) Diabetes mellitus type 2, controlled ([facility]) Eczema 2006 Elevated troponin [...] TO CLINIC: 1 year documented in this encounterVermont State HospitalTrellis Earth Products10-15-2024 History of Present illness Narrative* Akila Koch [...] Diagnosis Date Noted PTSD (post-traumatic stress disorder) ([facility]) 12/24/2020 Allergic reaction to contrast dye 07/25/2021 Chronic allergic rhinitis due to pollen 12/22/2015 Anxiety 03/02/2021 Arachnoid cyst of pituitary gland 04/07/2015 Aspirin allergy 02/10/2021 Autonomic dysfunction 02/10/2021 Bleeding disorder ([facility]) 02/23/2014 Symptomatic bradycardia 12/24/2020 Cervicalgia 03/02/2021 Depression ([facility]) 12/24/2020 Type 2 diabetes mellitus with hyperglycemia, without long-term current use of insulin ([facility]) 12/24/2020 Diffuse pain 08/23/2021 Adverse food reaction 07/25/2021 Dyspareunia in female 01/12/2023 Gastroesophageal reflux disease 12/22/2015 Gross hematuria 01/12/2023 Hearing loss 12/22/2015 History of hysterectomy 02/10/2021 Hyperlipidemia ([facility]) 12/22/2015 Irritable bowel syndrome 12/22/2015 Memory difficulties 03/02/2021 Migraine without aura and without status migrainosus, not intractable ([facility]) 12/24/2020 Moderate persistent asthma without complication (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) 12/22/2015 Qualitative platelet disorder ([facility]) 04/03/2022 Right inguinal hernia 01/12/2023 Screening for [...] 12/22/2015 Adenovirus infection 01/10/2022 Exacerbation of asthma ([facility]) 01/08/2022 Asthma ([facility]) 12/22/2015 Blood pressure instability 05/24/2021 Chest pain [...] (CMS/HCC) Arachnoid cyst in brain (2015) Asthma (CMS/HCC) Celiac disease ([facility]/HCC) Chronic sinusitis Deaf, right Depression ([facility]/HCC) Dyspareunia in female Edema, peripheral Gastroesophageal reflux disease Hernia, abdominal Herpes zoster without complication History of cardiac monitoring Pt currently has cardiac heart monitor 06/27/2022 History of hysterectomy History of thyroid nodule Hormone imbalance Hot flashes due to surgical menopause Hypothyroid (CMS/HCC) Insomnia, persistent Medication reaction Metabolic syndrome Mild persistent asthma without complication ([facility]/HCC) Myoclonic jerking, massive Ovarian cyst Paresthesia Post-COVID syndrome POTS (postural orthostatic tachycardia syndrome) Right inguinal hernia Seasonal allergic rhinitis due to pollen Type 2 diabetes mellitus with hyperglycemia, without long-term current use of insulin ([facility]) Urinary hesitancy Vitamin D deficiency Social History [...] CONTRAST OTHER SURGICAL HISTORY 2013 uterine ablation AL LAP,CHOLECYSTECTOMY 2009 AL LAPAROSCOPY W/LYSIS OF ADHESIONS 2010 SALPINGECTOMY Bilateral [...] nursing note reviewed. Exam conducted with a hydro operator present. Vitals: Estimated body mass index is [...] of: Rubens Tim DO documented in this encounterPemiscot Memorial Health [id number] History of Present illness Narrative* Christy Painting [...] these episodes. 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 She was blue and her co-workers [...] up in the speech therapy Clinic in [facility]. As she has a history of [...] Symbicort with spacer. Add Spiriva [facility] in [place]. Technique. We agreed she would use Symbicort [...] spirometry and skin testing. documented in this encounterPemiscot Memorial Health [id number] History of Present illness Narrative* Cas Dowell MD - 10/23/2023 2:04 PM EDT The patient needs a letter stating she requires a medical exception from the influenza vaccination due to a history of anaphylactic reactions to vaccines. documented in this encounterPemiscot Memorial Health [id number] History of Present illness Narrative* Cas Dowell MD - 10/10/2023 9:42 AM EDTAssociated Problem(s): Type 2 diabetes mellitus with hyperglycemia, without long-term current use of insulin (CMS/HCC) Reports BS controlled and A1C 5.6. Stick [...] - 10/10/2023 9:42 AM EDTAssociated Problem(s): Chronic cxky-EVFHT-11 syndrome No change in symptoms and monitor. [...] symbicort and continue. Use albuterol PRN. Chronic mkfr-NDWSX-35 syndrome No change in symptoms and monitor. Edema of both legs Edema stable and elevate legs PRN. documented in this encounterPemiscot Memorial Health [id number] Instructions* Patient Instructions* Fuentes Amaral MD - 10/01/2023 10:04 AM EDT Continue Amicar prior to dental extraction FFP for major surgery. RTC in 12 months - cbc, cmp documented in [facility] History of Present illness Narrative* Fuentes Amaral MD - 10/01/2023 9:45 AM EDT Images from the original note were not included. 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 Vessels No date: REMOVAL GALLBLADDER No date: TUBAL LIGATION HX Social History Tobacco Use Smoking status: Never Passive exposure: Past Smokeless tobacco: Never Vaping Use Vaping status: Never Used Substance Use Topics Alcohol use: Not Currently Drug use: Not Currently FAMILY HISTORY Problem Relation Age of Onset Diabetes Mother uncontrolled Hypertension Mother Heart Attack Mother First [place] at age 51 Cardiomyopathy Mother at age [...] which included preparing to see the patient, yczh-qa-elzg patient care, completing clinical documentation, performing a medically appropriate examination, ordering medications, tests, or procedures, and communicating results to the patient/fam jair/caregiver. Fuentes Amaral MD, CPE Hematology and Oncology Services Provided at: [place], [place] Scribe Attestation: This note was scribed by Yari Fucsh on October 01, 2023 under the direction and supervision of Dr. Fuentes Amaral. I attest that all of the information documented is correct to the best of my knowledge. Provider Attestation: I, Fuentes Amaral MD, attest that all information documented by the above scribe is correct, and was supervised by me and under my direction. CC: Cas Cronin documented in this encounterAvita [facility]08-[facility] History of Present illness Narrative* Cas Dowell MD - 09/26/2023 10:10 AM EDTAssociated Problem(s): Allergic reaction Recent reaction and improved with treatment. Reactions getting worse and refer to engineering group manager. * Cas Dowell MD - 09/26/2023 9:15 [...] and faster symptom onset. Requests referral to engineering group manager. Review of Systems Respiratory: Negative for cough, [...] treatment. Reactions getting worse and refer to engineering group manager. Relevant Orders Ambulatory referral to Allergy documented in this encounterPemiscot Memorial Health [id number] History of Present illness Narrative* Marni Flowers, SUPERVISOR PASTE PLANT-JAVA MOBILE DEVELOPER - 07/05/2023 3:30 PM EDT Subjective: Patient [...] fatigue. Headaches: She is a patient with [facility]. 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 She last [...] a migraine at least twice a week. Ubrelvsilvio works well for her migraines. It relieves [...] post-, etc again. [place] She has been working at least 24-40 hours a week. She is doing12 hour shifts (unless she is picking up extra). 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 She has found that the [...] pain 1995 Bradycardia Chest pain Clotting disorder ([facility]) 1984 COVID Depression Diabetes mellitus ([facility]) Diabetes mellitus type 2, controlled ([facility]) Eczema 2006 Elevated troponin [...] Strain: Medium Risk (04/08/2023) Received from [facility] Overall Financial Resource Strain (CARDIA) Difficulty of Paying Living Expenses: Somewhat hard Food Insecurity: No Food Insecurity (05/08/2023) Hunger Screening Food Insecurity - Worry: Never True Food Insecurity - Inability: Never True Transportation Needs: No Transportation Needs (04/08/2023) Received from [facility] - Transportation Lack of Transportation (Medical): No Lack of Transportation (Non-Medical): No Physical Activity: Insufficiently Active (04/08/2023) Received from [facility] Exercise Vital Sign Days of Exercise per Week: 4 days Minutes of Exercise per Session: 20 min Stress: No Stress Concern Present (04/08/2023) Received from [facility] [place] of Occupational Health - Occupational Stress Questionnaire Feeling of Stress : Only a little Social Connections: Unknown (04/08/2023) Received from [facility] Social Connection and Isolation Panel [NHANES] Frequency of Communication with Friends and Family: More than three times a week Frequency of Social Gatherings with Friends and Family: Once a week Attends Mandaen Services: Patient declined Active Member of Clubs or Organizations: Patient declined Attends Club or Organization Meetings: Patient declined Marital Status: Interpersonal Safety: Not At Risk (01/10/2023) Received from [facility], [facility] [place] Safety & Environment Within the [...] Housing Instability: Patient Declined (04/08/2023) [facility], [facility] Housing Stability Vital Sign Unable to Pay for Housing in the Last Year: Patient declined Number of Places Lived in the Last Year: 1 In the last 12 months, was there a time when you did not have a steady place to sleep or slept [facility] ([facility] now)?: Patient declined Family History Problem [...] what day of the week it is. [facility] in [place]--Neurology. Level of consciousness: alert. Knowledge: good and consistent with education. Intact short-term memory and intact long-term memory. Vocabulary is normal. 01/11/41=no idea 10/16/2000= the twin towers in [place] fell down because a plane hit them. [...] dorsiflexors: 4/5 Left foot dorsiflexors: 4/5 Right purchase price analyst strength: WeakMild generalized weakness Fasciculations: None Myotonia: [...] post-, etc again. She anticipates moving to [place] [employer] in August or September. She has been working at least 24-40 hours a week. She is doing 12 hour shifts (unless she is picking up extra). 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 She has found that the [...] other cognitive dysfunction. Call the office at [phone] or send a Vestmark message if you develop any of these problems. #9. Ubrelvy 100 mg tablets. Take 1 tablet at the onset of a headache. You can repeat this once 2 hours later. Do not take more than 2 doses in 24-[place] [address] to activate co-pay card. #10. Return for [...] procedures Referring and communicating with other health medicare specialist (not separately reported) Documenting clinical information in the electronic or other health record Independently interpreting results (not separately reported) and communicating results to the patient/family/caregiver Care coordination (not separately reported) - Marni Flowers DNP, DEX 07/05/23 2:16 PM DEX Ole[place] 07/05/23 1417 documented in this encounterRegency [facility]05-30-2024 Instructions* Patient Instructions* DEX Oleary - 07/05/2023 [...] other cognitive dysfunction. Call the office at [phone] or send a Vestmark message if you develop any of these problems. #9. Ubrelvy 100 mg tablets. Take 1 tablet at the onset of a headache. You can repeat this once 2 hours later. Do not take more than 2 doses in 24-hours[place] [address] to activate co-pay card. #10. Return for follow-up in 6 months (January 02, 2024 at 10:15 AM), earlier if needed. --increase zonisamide back to 200 mg, if headaches do not decrease, switch from Ajovy to Qulipta after 1 month documented in this encounterCleveland ClinicSafetyPay [facility] [id number] History of Present illness Narrative* DEX Jameson [...] 2.48 She has been to referred to [facility] for symptoms from COVID-19. Dizzy and [...] nostril once daily., Disp: , Rfl: fremanezumab-vfrm (Guang Lian Shi DaiOVOshiboree 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) 225 mg/1.5 mL, Inject 1.5 mL [...] pain 1995 Bradycardia Chest pain Clotting disorder ([facility]) 1984 COVID Depression Diabetes mellitus ([facility]) Diabetes mellitus type 2, controlled ([facility]) Eczema 2006 Elevated troponin [...] DEX Jameson 05/08/23 0902 documented in this encounterRegency Hospital [facility]08-28-2023 Instructions* Patient Instructions* Fuentes Amaral MD - 10/02/2022 9:51 AM EDT Continue Amicar prior to dentist appointment. 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 Fuentes Amaral MD, CPE Hematology and Oncology Services Provided at: [place], [place] CC: Cas Cronin documented in this encounterAvita Health [facility]08-01-2023 Hospital Discharge instructions Patient Education 09/05/2022 09:06:17 Kidney Stones, Jqmn-se-Gymz Kidney Stones Kidney stones are rock-like masses [...] Follow these instructions at home: Medicines Take ubvh-nwr-eypsvdu and prescription medicines only as told by [...] provider. Document Revised: 09/26/2021 Document Reviewed: 09/26/2021 [employer] Patient Education 2022 [employer] Follow Up Care 02/28/2022 09:04:41 With:TEJ HEREDIA, LORAINE Razo, URL Address: [address] [place] [address] When: Unknown [facility] 03-29-2023 Miscellaneous Notes* Telephone Encounter - Yury Collins MA - 05/03/2022 11:43 AM EDT Images from the original note were not included. documented in this encounterAvita Health [facility] Hospital03-22-2023 History of Present illness Narrative* Bhargavi Ramesh PA-C - 04/26/2022 1:00 PM EDT Headache Center - Follow up Virtual Visit During this COVID-19 pandemic, patient's headache clinic evaluation was scheduled as a virtual visit using the following platform Zoom - patient currently located in [place] Leana Tran was identified by name and [...] Either the patient or their legal labor representative has been informed of therisks and [...] ^Rfl: fremanezumab-vfrm subcutaneus auto-injector 225 mg/1.5 mL (AJOVOshiboree)^Inject 1.5 mL subcutaneously onceevery month. Do not [...] and discussed these with the patient: yes Bhagravi Ramesh PA-C HEADACHE SCORES: Headache Questions 10/17/2021 [...] thrombosis. Unremarkable MRA brain and MRA neck. Iron Worker: [facility] Transcribe Date/Time: Mar 31 2016 [...] change which could potentially contribute to headache. Iron Worker: [facility] Transcribe Date/Time: Jun 27 2021 [...] # 1.10 - 3.70 k/uL 1.67 Absolute Mineral # 0.10 - 1.20 k/uL 0.37 Absolute Eos # 0.00 - 0.44 k/uL 0.19 Basophils Absolute 0.00 - 0.20 k/uL 0.04 Absolute Immature Granulocyte 0.00 - 0.30 k/uL 0.04 Review of Systems: Review of system: unchanged from the previous visit (sleep patterns, mood, energy, appetite, stress, exercising). Physical Examination: Vital Signs: [facility] 2015 General: well appearing, in no acute distress, alert Pain Behaviors: no pain behaviors observed Neurological: Mental Status: Alert and oriented to person, place and time. Affect is normal. Speech is spontaneous and fluent without dysarthria. Short and assisted memory, cognition and general fund of knowledgeare [...] 15 minutes Bhargavi Ramesh PA-C Headache Section [facility] April 26, 2022 documented in this encounterAvita Health [facility]03-13-2023 Instructions* Patient Instructions* Fuentes Amaral MD - 04/17/2022 5:31 PM EDT Keep prior appointment September documented in this encounterAvita Health [facility]03-13-2023 History of Present illness Narrative* Fuentes [...] minutes Fuentes Amaral MD documented in this encounterAvita Health [facility]02-27-2023 Instructions* Patient Instructions* Fuentes Amaral MD - 04/03/2022 11:06 AM EST Platelet electron microscopy pending drawn Call results when available - anticipate 2 weeks Consider functional medicine referral for DM and PCOS Keep appointment with Dr. Stephon Cronin's group for POTS Trial of Amicar prior to dentist appointment. 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 Fuentes Amaral MD, CPE Hematology and Oncology Services Provided at: [place], [place] CC: Cas Cronin documented in this encounterAvita [facility]02-27-[facility]23 Nurse Note* Elizabeth Rodriges MA - 04/03/2022 10:43 AM EST Patient is still bruising. Elizabeth Rodriges MA documented in this encounterAvita Health System [facility]02-27-2023 Miscellaneous Notes* Telephone Encounter - Marlon Plaza - 04/03/2022 9:32 AM EST Images from the original note were not included. documented in this encounterAvita Health System [facility]02-14-2023 Miscellaneous Notes* Telephone Encounter - Manda León RN - 03/21/2022 10:43 AM EST Received call from pt stating she was [place] doing them on or fridays so she needs to move out her appt with Dr Salas so she has timeto try again to get lab done. Pt transferred to front desk coordinator to reschedule f/u appt. Manda León RN documented in this encounterAvita Health System Gal[facility]01-24-2023 Hospital Discharge instructions Patient Education 02/28/2022 [...] reconstructed. Follow these instructions at home: Take eaac-ryo-twhawvi and prescription medicines only as told by [...] 02/18/2016 Document Revised: 09/04/2018 Document Reviewed: 09/04/2018 [employer] Patient Education 2020 MILI. Follow Up Care 12/22/2021 14:08:59 With:LORAINE BURNHAM PA-C, URL Address: [address] [facility] [place] [address] When: Unknown [facility] 01-23-2023 History of Present illness Narrative* Tesfaye Whitman RPh - 02/27/2022 10:32 AM EST Refill Authorization Consent Leana Tran was encountered by text or mychart message to obtain consent for pharmacist managed refill authorization. Patient gives consent to the authorization of prescriptions by a pharmacist. Tesfaye Whitman RPh 02/27/2022 documented in this encounterAvita Health System Gal[facility]01-20-2023 Miscellaneous Notes* Telephone Encounter - Vikash Oreilly RN - 02/24/2022 3:15 PM EST PA submitted via covermymeds. Guilhermesushilasilvio LEANA MARC ([place]: [id number]) Your information has been submitted to [facility]. To check for an updated outcome later, reopen thisPA request from your dashboard. If [facility] has not responded to your request within 24 hours, contact [facility] at . If you think there may be a problem with your PA request, use our live chat feature at the bottom right. Vikash Oreilly RN February 24, 2022 3:16 PM documented in this encounterAvita Health System Gal[facility]01-16-2023 Miscellaneous Notes* Telephone Encounter - Fuentes Amaral MD - 02/20/2022 8:50 AM EST Ok with me * Telephone Encounter - Manda León RN - 02/20/2022 8:43 AM EST Informed Lindsey of Dr Salas's response. Lindsey states that [facility] will only except if pt was drawn on pt was drawn on Sunday so they are sending it out today to [place], unless Dr Salas would like pt to come back in for a redraw so it can be sent to [facility]. Manda León RN * Telephone Encounter - Fuentes Amaral MD - 02/17/2022 5:23 PM EST Col[facility] would be good. * Telephone Encounter - Manda León RN - 02/17/2022 4:03 PM EST Received call from Melodie at [facility] in [place] stating pt had her platelet transmission lab done there but it is a lab test that they send out to other labs and they wanted to know if Dr Salas has a preference on what lab they send it to d/t different labs running the test different ways. ZACH: Please advise. Manda León RN documented in this encounterAvita Health System [facility] Hospital01-13-2023 Miscellaneous Notes* Telephone Encounter - Loraine Huggins [facility] - 02/17/2022 9:45 AM EST Records faxed to Dr. Cronin. * Telephone Encounter - Sharon Hess - 02/17/2022 8:55 AM EST Pt would like referral sent to Stephon Cronin MD @ [facility]. Lauren, will you please fax records when order is signed? Demo in your box, thanks! * Telephone Encounter - Manda León RN - 02/17/2022 8:38 AM EST PSS: Please set pt up with referral to her preferred black mill operator. Thank you. Manda León RN * Telephone Encounter - Manda León RN - 02/16/2022 1:28 PM EST Received call from pt stating Dr Salas told her to see black mill operator but their office needs a referral. ZACH: Order pending, please review and sign. Manda León RN documented in this encounterAvita Health System [facility]01-09-2023 History of Present illness Narrative* Meena Grissom MD - 02/13/2022 8:28 PM EST Discussed with scheduling, appointment will be rescheduled. Patient logged in late- had technical issues with Zoom. 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 Fuentes Amaral MD, CPE Hematology and Oncology Services Provided at: [place], [place] CC: Cas Dowell documented in this encounterAvita Health System Gal[facility] Hospital12-28-2022 Miscellaneous Notes* Telephone Encounter - Fanny Green LPN - 02/01/2022 10:42 AM EST Images from the original note were not included. documented in this encounterAvita Health System Galion Hospital12-19-2022 Hospital Discharge instructions Patient Education 01/23/2022 [...] Up Care 12/22/2021 14:21:18 With:LORAINE BURNHAM Address: [address] [place] [address] [facility] (1) When:6 weeks Comments:Call for followup appointment in about six weeks. As discussed, PONCE Hargrove can further follow upon the left kidney abnormality noted on the kidney ultrasound. 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 [facility]12-12-2022 History of Present illness Narrative* Bhargavi Ramesh PA-C - 01/16/2022 9:00 AM EST Headache Center - Follow up Virtual Visit During this COVID-19 pandemic, patient's headache clinic evaluation was scheduled as a virtual visit using the following platform Zoom - patient currently located in [place] Leana Tran was identified by name and [...] thrombosis. Unremarkable MRA brain and MRA neck. Iron Worker: [facility] Transcribe Date/Time: Mar 31 2016 [...] change which could potentially contribute to headache. Iron Worker: [facility] Transcribe Date/Time: Jun 27 2021 [...] spontaneous and fluent without dysarthria. Short and termination clerk memory, cognition and general fund of knowledgeare [...] 10 minutes Bhargavi Ramesh PA-C Headache Section [facility] January 16, 2022 documented in this encounterAvita Health System [facility] Hospital11-28-2022 History of Present illness Narrative* Jenny Borden - 01/02/2022 4:23 AM EST Sleep Study Check-In Documentation Date: January 02, 2022 Name: Leana Tran Patient was accompanied by Self. Location: [place] Latex allergy: Yes Tape allergy: No Current medications were reviewed with the patient:Yes Sleep aid taken by patient for the sleep study: Pony of sleep aid: Not Applicable Procedure was explained to the patient and all questions were answered. PAP treatment discussed and shown to patient: Yes If PAP used enter mask info: n/a Elliot Sharp Used No Knowledge Program (KP): KP was not completed in epic by patient and accepted Study type: Polysomnogram Adverse Event: No (If yes create a new abstract) SERS Event: No Comments: Patient was advised to follow up with their ordering provider regarding test results Jenny Borden documented in this encounterAvita Health System Gal[facility] Hospital11-16-2022 Evaluation + Plan note Diagnostic Tests Pending * Urine Cytology ([facility]) 12/21/21 [facility] 11-16-2022 Hospital Discharge instructions Patient Education 2021 [...] Follow these instructions at home: Medicines Take tgpa-ipw-tvwbuho and prescription medicines only as told by [...] or the blood stops without treatment. Take cqfi-vjt-kwylnoz and prescription medicines only as told by your health care provider. Drink enough fluid to keep your urine clear or pale yellow. This information is not intended to replace advice given to you by your health care provider. Make sure you discuss any questions you have with your health care provider. Document Released: 01/22/2006 Document Revised: 06/18/2019 Document Reviewed: 02/24/2017 [employer] Patient Education 2020 [employer] Follow Up Care 11/28/2021 10:05:42 With:[facility] Address: [address] [place] [address] Business (1) When: Unknown Comments:our manufacturing storeperson will be contacting you for follow-up [facility] 11-15-2022 Miscellaneous Notes* Telephone Encounter - CARINE Carrillo - 12/20/2021 10:01 AM EST Results left on patient voicemail. Leana Tran's bleeding disorders panel through [facility] [employer] was non- diagnostic or negative for a pathogenic variant. 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 This is a common polymorphism in the general population present in ~10% of individuals of white ancestry and ~1/3 of those of South ancestry. This polymorphism is not expected to contribute to disease risk for the patient. Please see TATE'S LIST message for further discussion. CARINE Carrillo Licensed, Certified Genetic Counselor Epic CC: Dr. Fuentes Craig documented in this encounterAvita Health System Galion Hospital11-10-2022 History of Present illness Narrative* Keria Harper - 12/15/2021 7:41 AM EST ACTIGRAPHY DEVICE # [id number] Date shipped out 12/15/2021 [employer] MAIL OUT TRACKING NUMBER [id number] [employer] RETURN TRACKING NUMBER [id number], Amber documented in this encounterAvita Health System Galion Hospital10-28-2022 History of Present illness Narrative* Ofelia Nelson - 12/02/2021 8:16 AM EDT UNIVERSAL PROTOCOL / SAFETY CHECKLIST Procedure to be performed: [facility]: TILT Sign in Communication: Completed Time Out: Team Confirms the Correct Patient, Correct Procedure, Correct Site and Site Marking, Correct Position (if applicable). Time: 0830 STAFF: bAy Affirmation of Time Out: YES Sign Out Discussion: Completed Ofelia Nelson Orders placed 10/20/[address]M Ana Allergies: Cefaclor, Iodinated Contrast Media, Fish Containing [...] Procedure Finish Time: 933 documented in this encounterAvita Health System Gal[facility] Hospital10-27-2022 Miscellaneous Notes* Telephone Encounter - Lindsey [...] 30, 2021 8:33 PM documented in this encounterAvita Health System Galion Hospital10-14-2022 Instructions* Patient Instructions* Fuentes Amaral MD - 11/18/2021 2:09 PM EDT 1. RTC and Repeat exam in 3 months - no labs 2. Review platelet genetics on return. 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 Fuentes Amaral MD, CPE Hematology and Oncology Services Provided at: [place], [place] CC: Cas Dowell documented in this encounterAvita Health System Galion Hospital10-12-2022 Instructions* Patient Instructions* Meena Grissom MD [...] depending on your insurance coverage. Contact your [employer] company for new supplies as needed. Encouraged increased CPAP compliance -PAP titration polysomnogram requested to assess optimum PAP therapy for KATELIN -PAP nap procedure requested to help address mask interface issues To schedule your sleep study please call the [facility] at [phone]. The [phone] phone number will be answered by the [...] If you work rotating shifts, ask your internal audit manager to schedule a natural, clockwise rotation. [...] alertness. A longer nap beforereporting for a material handler 1st shift is also beneficial. Exposure to bright light on the job can improve alertness during material handler 1st shift work. Arrange for someone to pick you up after a material handler 1st shift, or take a bus or cab home. [...] for insomnia. The cost is $40. Use www.AllClear ID.Arrowsight which to access the [facility] Wellness website to purchase the program [...] provider and give them the CPT code: 68378 You will be asked to wear the [...] about your actigraphy device, please call the engine test cell technician at: [phone]( During Hours: 8am-4:30pm) ? -Discussed pathophysiology of Sleep paralysis, and possible triggering factors which include sleep deprivation, untreated obstructive sleep apnea. Other possible etiologies include circadian shift work,anxiety disorders and medications. - Follow up in 2 months documented in this encounterAvita Health System Galion Hospital10-12-2022 Miscellaneous Notes* Telephone Encounter - Zuleyka Pacheco RN - 11/16/2021 1:04 PM EDT Images from the original note were not included. * Telephone Encounter - Zuleyka Pacheco RN - 11/16/2021 1:03 PM EDT Images from the original note were not included. documented in this encounterAvita Health System Galion Hospital10-12-2022 History of Present illness Narrative* Meena Grissom MD - 11/16/2021 8:59 AM EDT Images from the original note were not included. [facility] New Patient Evaluation [...] on CPAP , her physician is at [facility]. Has a Resmed device, uses it on [...] or near accidents due to drowsy drivin [place] Sleepiness Scale 11/13/2021 Score 7 (No daytime [...] (Discontinued) PRIOR SLEEP STUDIES: Sleep centre at [place] (report not available at time of consultation) [...] uncontrolled Hypertension Mother Heart Attack Mother First [place] at age 51 Cardiomyopathy Mother at age [...] If you work rotating shifts, ask your internal audit manager to schedule a natural, clockwise rotation. [...] alertness. A longer nap beforereporting for a material handler 1st shift is also beneficial. Exposure to bright light on the job can improve alertness during material handler 1st shift work. Arrange for someone to pick you up after a material handler 1st shift, or take a bus or cab home. [...] for insomnia. The cost is $40. Use www.[employer] which to access the [facility] website to purchase the program [...] ASV) FERRITIN BLD IRON + TIBC Meena Devnani, MD I spent a total of 50 minutes on the date of the service which included preparing to see the patient, pfew-od-nbnp patient care, performing a medically appropriate examination, counseling and educating the patient/family/caregiver and ordering medications/devices. documented in this encounterAvita Health System Galion Hospital10-11-2022 Miscellaneous Notes* Telephone Encounter - Fanny Green LPN - 11/15/2021 3:55 PM EDT Images from the original note were not included. documented in this encounterAvita Health System Galion Hospital10-08-2022 History of Present illness Narrative* Fuentes [...] minutes Fuentes Amaral MD documented in this encounterAvita Health System Galion Hospital10-03-2022 Miscellaneous Notes* Telephone Encounter - Landen Mahmood APRN.MACY - 11/07/2021 4:19 PM EDT Order for nebulizer supplies resent to [facility]. Call to them inquiring about any additional information they may need. Landen Mahmood APRN.JAVA MOBILE DEVELOPER documented in this encounterAvita Health System Galion Hospital10-03-2022 Miscellaneous Notes* Telephone Encounter - Lindsey Hassan RN - 11/07/2021 3:29 PM EDT Contacted [facility]. Order has not been received. Discussed with Javier from [facility]. Order is currently being processed. Filomena MARIE documented in this encounterAvita Health System Galion Hospital09-29-2022 Instructions* Patient Instructions* Fuentes Amaral MD - 11/03/2021 11:38 AM EDT 1. Need Mammogram results from [facility] 2. Proceed with genetic testing for platelet disorder 3. Call next week to review mammogram results documented in this encounterAvita Health System Galion Hospital09-29-2022 History of Present illness Narrative* Fuentes [...] workup. PLAN: 1. Need Mammogram results from [facility] 2. Proceed with genetic testing for platelet [...] which included preparing to see the patient, pcit-rp-mffe patient care, completing clinical documentation, obtaining and/or reviewing separately obtained history, performing a medically appropriate examination, counseling and educating the pat ient/family/caregiver, ordering medications, tests, or procedures, independently interpreting results (not separately reported) and communicating results to the patient/family/caregiver. Fuentes Amaral MD, CPE Hematology and Oncology Services Provided at: [place], [place] CC: Cas Dowell documented in this encounterAvita Health System Galion Hospital09-25-2022 Miscellaneous Notes* Telephone Encounter - Fuentes Amaral MD - 10/30/2021 9:09 AM EDT I don't think I need labs for her. * Telephone Encounter - Sharon Peterson Ma - 10/27/2021 3:21 PM EDT If needed, please add lab orders for appointment on 11/03/21. Sharon Peterson Ma documented in this encounterAvita Health System Galion Hospital09-19-2022 History of Present illness Narrative* Henny Rushing MD - 10/24/2021 11:30 AM EDT VIRTUAL VISIT PROGRESS NOTE This is a virtual visit using Vestmark video visit. It required patient-provider interaction for [...] axillary lymphadenopathy. She is also following in [facility] clinic. She has noticed a [...] controlled, she is following with Pulmonary and [facility] clinic She recently received iodinated contrast with pre-medication and was able to tolerate As per prior HPI: Chronic rhinitis Sinus/lung infections Longstanding history of recurrent pneumonia 1-2 times per year and recurrent sinus infections. Had sinus surgery which helped reduce sinus infections- however she has had 2 infections in the last 2 months. Immunodeficiency evaluation performed by an engineering group manager in [place] showed protective strep pneumo titers after vaccination [...] at the ER Last December saw an engineering group manager- skin testing was negative to environmental allergies [...] managed by her family medicine physician and relish blender. Has had 0 ER, hospitalization and ICU [...] uncontrolled Hypertension Mother Heart Attack Mother First [place] at age 51 Cardiomyopathy Mother at age [...] or contact dermatitis- advise follow-up with local [employer] Allergic rhinitis, unspecified seasonality, unspecified trigger Comment/Plan: Well-controlled, continue Flonase and oral antihistamine Moderate persistent asthma without complication Comment/Plan: Controlled, continue follow-up with Pulmonary and Covid-19 [facility] Henny Rushing MD documented in this encounterAvita Health System Galion Hospital09-15-2022 History of Present illness Narrative* Micheal Perez MD - 10/20/2021 8:00 AM EDT Heart, Vascular & Thoracic [place] Department of Cardiac Surgery VIRTUAL VIDEO VISIT [...] uncontrolled Hypertension Mother Heart Attack Mother First [place] at age 51 Cardiomyopathy Mother at age [...] 5:26 PM This note was generated using [email or web address].[email or web address] voice recognition system. Please excuse any typographical errors. I spent 30 minutes with the patient; greater than 50% of the time was spent in counselling and co-ordinating the care based on my impression and plan above. documented in this encounterAvita Health System Galion Hospital09-14-2022 Instructions* Patient Instructions* Bhargavi Ramesh PA-C - 10/19/2021 2:31 PM EDT Consider restart Botox PREEMPT Protocol Discontinue Emgality Start Ajovy - once monthly - wait until 11/10 to inject the first dose [facility]: [phone] Consider aimovig or vyepti Please follow up in 3 months or sooner if needed documented in this encounterAvita Health System Galion Hospital09-14-2022 History of Present illness Narrative* Bhargavi [...] fluticasone (FLONASE) 50 mcg/actuation nasal spray^Use 1 Marshall in each nostril twice daily.^Disp: 3Each^Rfl: 11 [...] thrombosis. Unremarkable MRA brain and MRA neck. Iron Worker: ROBER Transcribe Date/Time: Mar 31 2016 2:40P [...] change which could potentially contribute to headache. Iron Worker: [facility] Transcribe Date/Time: Jun 27 2021 [...] Abs Lymph 1.00 - 4.00 k/uL 1.45 Mineral% % 4.4 Abs Mineral <0.87 k/uL 0.30 Eosin% % 2.5 Abs [...] assisted memory, cognition and general fund of knowledgeare [...] 20 minutes Bhargavi Ramesh PA-C Headache Section [facility] October 19, 2021 documented in this encounterAvita Health System [facility] Hospital09-09-2022 History of Present illness Narrative* Judith Valdes PSYD - 10/14/2021 8:59 AM EDT [facility] Psychology Progress Note Billing codes: Keisha PSYCHOLOGY: FOLLOW-UP APPOINTMENT PROGRESS NOTE- Virtual Visit Due to the federal emergency declaration and the need for ongoing mental health services, the following visit was completed virtually and informed consent obtained orally to reduce the risk of COVID-19 exposure. Oral consent to services related to virtual visits was obtained after information was sent via Vestmark or read to patient if MyChart not available. Leana Tran 10/14/2021 [id number] PROVIDER: Judith Valdes PSYD CPT Code: [id number] Virtual PSYTX PT &/FAMILY 45 MINS Time [...] Valdes Psy.D. Associate Staff, [facility] documented in this encounterAvita Health System Galion Hospital09-07-2022 History of Present illness Narrative* Ruth Villaseñor MD - 10/12/2021 2:25 PM EDT Images from the original note were not included. Rheumatology Outpatient Clinic Date of Service: 10/12/2021 Patient: Leana Tran Medical Record: [id number] Primary Care Physician: Cas Dowell MD Referring [...] LN yet. Awaiting follow up in [facility] clinic. Discussed blood test results and discussed [...] uncontrolled Hypertension Mother Heart Attack Mother First [place] at age 51 Cardiomyopathy Mother at age [...] (FLONASE) 50 mcg/actuation nasal spray Use 1 Marshall in each nostril twice daily. zonisamide (ZONEGRAN) [...] AM (Final result) Impression: IMPRESSION: See Result. Iron Worker: ROBER Transcribe Date/Time: Sep 30 2021 2:15P... [...] In certain cases, a referral to a contracting support specialist may be required, in patients who [...] Ruth Villaseñor MD Rheumatology documented in this encounterAvita [facility]08-26-[facility]22 History of Present illness Narrative* Magda [...] 30, 2021 9:53 AM documented in this encounterAvita Health System [facility]08-23-2022 History of Present illness Narrative* Yanira Bryson RRT - 09/27/2021 8:01 AM EDT PULM FUNCTION SMARTBLOCK: Provider: Landen Mahmood APRN.JAVA MOBILE DEVELOPER Assisting Tech: Yanira Bryson RRT Spirometry w/BD: 1 DLCO: 1 LV - Box: 1 6 MW: 1 documented in this encounterAvita Health System Gal[facility]08-18-2022 Miscellaneous Notes* Telephone Encounter - Kim Stark RN - 09/22/2021 4:49 PM EDT Spoke with provider through secure chat-due to triage, worsening symptoms, and time of day sent patient to ED Patient stated that will head to [facility] shortly to be evaluated. Thank you, [...] trend. Landen Mahmood APRN.MACY documented in this encounterAvita Health System [facility]08-17-2022 History of Present illness Narrative* Ruth Villaseñor MD - 09/21/2021 3:30 PM EDT Images from the original note were not included. Rheumatology Outpatient Clinic Date of Service: 09/21/2021 Patient: Leana Tran Medical Record: [id number] Primary Care Physician: Cas Dowell MD Referring Provider: SELF Last Rhe[facility] visit: [facility] Chief complaint: Consult (Patient states she was at [facility] on 09/19/21, seen Landen Mahmood APRN. [...] of Consult (Patient states she was at [facility] on 09/19/21, seen Landen Mahmood APRN. [...] uncontrolled Hypertension Mother Heart Attack Mother First [place] at age 51 Cardiomyopathy Mother at age [...] (FLONASE) 50 mcg/actuation nasal spray Use 1 Marshall in each nostril twice daily. zonisamide (ZONEGRAN) [...] repeat CBC, CMP, C3, C4 ordered at [facility]. To evaluate for causes that could contribute to her pain, I will follow CBC with diff, comprehensive metabolic panel,TSH, 25-hydroxy vitamin D, vitamin B12 levels, ordered at [facility]. Additionally, because sleep apnea can [...] In certain cases, a referral to a contracting support specialist may be required, in patients who [...] which included preparing to see the patient, vlns-bt-webq patient care, completing clinical documentation, obtaining and/or [...] 2021 Time: 5:08 PM documented in this encounterAvita Health [facility]08-15-2022 Miscellaneous Notes* Telephone Encounter - Landen Mahmood APRN.CNP - 09/19/2021 4:59 PM EDT Please help schedule fu visit in 4-6 weeks and testing please. Landen Mahmood APRN.CNP documented in this encounterAvita Health System [facility]08-15-2022 Instructions* Patient Instructions* Landen Mahmood APRN.CNP - 09/19/2021 3:10 PM EDT [facility]! The 'COV' represents SARS-CoV-2, [...] your current symptoms. - The [facility] Clinic Team documented in this encounterAvita Health System [facility] Hospital08-15-2022 History of Present illness Narrative* Landen Mahmood, SUPERVISOR PASTE PLANT.JAVA MOBILE DEVELOPER - 09/19/2021 2:07 PM EDT Images from [...] (FLONASE) 50 mcg/actuation nasal spray Use 1 Marshall in each nostril twice daily. zonisamide (ZONEGRAN) [...] 10 15 FANNY - 2/7 SCORES 09/09/2021 08/22/202107/29/2021 FANNY-2 Score 4 1 3 FANNY-7 Score [...] which included preparing to see the patient, iquq-hn-rpzw patient care, completing clinical documentation, obtaining and/or reviewing separately obtained history, performing a medically appropriate examination, counseling and educating the pat ient/family/caregiver, ordering medications, tests, or procedures, communicating with other HCPs (not separately reported), independently interpreting results (not separately reported), communicatingresults to the patient/family/caregiver, and care coordination (not separately reported). Landen Mahmood APRN.CNP September 19, 2021 2:07 PM documented in this encounterAvita Health System [facility]08-12-2022 History of Present illness Narrative* Judith Valdes PSYD - 09/16/2021 8:59 AM EDT [facility] Psychology Progress Note Billing codes: Keisha PSYCHOLOGY: FOLLOW-UP APPOINTMENT PROGRESS NOTE- Virtual Visit Due to the federal emergency declaration and the need for ongoing mental health services, the following visit was completed virtually and informed consent obtained orally to reduce the risk of COVID-19 exposure. Oral consent to services related to virtual visits was obtained after information was sent via QiandaoharElectroCore or read to patient if Qiandaohart not available. Leana Tran 09/16/2021 [id number] PROVIDER: Judith Valdes PSYD CPT Code: 2510204 Virtual PSYTX PT &/FAMILY 45 MINS Time [...] (FLONASE) 50 mcg/actuation nasal spray Use 1 Marshall in each nostril twice daily. zonisamide (ZONEGRAN) [...] Valdes Psy.D. Associate Staff, [facility] documented in this encounterAvita Health [facility]08-01-2022 Hospital Discharge instructions* Discharge Instructions* Christine Abraham DO - 09/05/2021 4:38 PM EDT Please stop the Valtrex and Levaquin. Contact your primary care provider tomorrow to discuss if there are any other medications they would like her to be on. You can take Benadryl as needed for itching. * Attachments The following attachments cannot be sent through Care Everywhere. * Allergic Reaction ([place]er) documented in [facility] encounterB[facility] [employer] Work Phone: 1(720) 722-657907-26-2022 Instructions* Patient Instructions* Ayaak Bright MD - 08/30/2021 12:03 PM EDT Go to RECOVER clinic appt Our staff will schedule in our LONG COVID SMA. Start the following supplements Vitamin D 4000 units daily Magnesium oxide 400 mg daily Curcumin (brand Meriva): 500 mg twice a day Ridgewood 3 (fish oil) capsules 2000 mg daily (purchase a brand with high EPA and DHA concentrations) NAC (N-acetyl cystine) 600 mg twice per day Trial of gluten restricted diet. We will schedule you with our nutritionis and holistic psychotherapy See me after shared group appointments are over documented in this encounterAvita Health System [facility]07-26-2022 History of Present illness Narrative* Ayaka [...] at ICU, transferred to another hospital [facility]. Discharged. Not intubated Since then: Body does [...] for headaches Background: 2 hours away in [facility] Relationships and Social Network: , supportive Three [...] (FLONASE) 50 mcg/actuation nasal spray Use 1 Marshall in each nostril twice daily. zonisamide (ZONEGRAN) [...] uncontrolled Hypertension Mother Heart Attack Mother First [place] at age 51 Cardiomyopathy Mother at age [...] (brand Meriva): 500 mg twice a day Ridgewood 3 (fish oil) capsules 2000 mg daily [...] which included preparing to see the patient, vcci-yf-tuqc patient care, completing clinical documentation, obtaining and/or reviewing separately obtained history, performing a medically appropriate examination, counseling and educating the pat ient/family/caregiver, ordering medications, tests, or procedures and communicating with other HCPs(not separately reported). documented in this encounterAvita Health System [facility]07-19-2022 Miscellaneous Notes* Telephone Encounter - Shelbie Umaña PA-C - 08/23/2021 4:11 PM EDT Images from the original note were not included. MD Shelbie Miller III, PA-C Please inform patient that there is no evidence of a hernia on US. I called patient and advised of negative US as mentioned above. [facility].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 [facility]05-10-2022 History of Present illness Narrative* Haily [place] Emg Tech - 06/14/2021 8:25 AM EDT UNIVERSAL [...] of Care Visit completed when applicable. Haily Man documented in this encounterAvita Health System [facility]05-06-2022 History of Present illness Narrative* Yan [...] to see endocrinology, neurology and cardiology at [facility] next week. ROS is negative [...] which included preparing to see the patient, hxuo-wk-whrx patient care, completing clinical documentation, obtaining and/or reviewing separately obtained history, performing a medically appropriate examination, counseling and educating the pat ient/family/caregiver, ordering medications, tests, or procedures, independently interpreting results (not separately reported) and communicating results to the patient/family/caregiver. CC: Peng Manley documented in this encounterAvita Health System [facility]04-26-2022 Miscellaneous Notes* Telephone Encounter - Shayla Santos - 05/31/2021 8:15 AM EDT Outside medical records received and scanned in for review. documented in this encounterAvita Health System [facility]ion Hospital04-15-2022 Hospital Discharge instructions* Instructions* Shanna Rivas APRN - JAVA MOBILE DEVELOPER - 05/20/2021 Increase your fluid intake. Eat [...] sent through Care Everywhere. * Chest Pain ([place]) * Abdominal Pain ([place]) documented in this encounterCleveland [facility] Luther[facility] HospitalEnterMedia Phone: 1(969) 574-474503-12-2022 Hospital Discharge instructions* Instructions* Shanna Rivas, SUPERVISOR PASTE PLANT - JAVA MOBILE DEVELOPER - 04/16/2021 Increase your fluid intake. Follow-up with both PCP and AUDIO VIDEO TECHNICIAN for reevaluation. Take Reglan as prescribed. Talk to your AUDIO VIDEO TECHNICIAN about the left ovarian cyst seen on CT as well as possible mild fluid in your fallopian tube. Take all medications as prescribed. Return to the ER for increased pain, fevers, difficulty breathing, vomiting or new or worsening signs or symptoms. * Attachments The following attachments cannot be sent through Care Everywhere. * Ovarian Cyst: Functional ([place]) * Nausea and Vomiting ([place]) documented in this [employer] Phone: [phone]) 716-861909-27-2021 Hospital Discharge instructions* Instructions* Araseli Barrett MD [...] Everywhere. * Coronavirus Disease (COVID-19): General Info ([place]) documented in this [employer] Phone: 1(395) 919-773308-02-2021 NoteHNO ID: [id number] Author: Lis Moraes MD Service: ? Author [...] for blood and CSF was negative. FOR JSOE LUIS: The needle was again repositioned 2 [...] Kenalog. - Tolerated procedure well Lis Moraes MDWhittier Rehabilitation [id number] NoteHNO ID: [id number] Author: Lis Moraes MD Service: ? Author Type: Physician Type: Progress Notes Filed: 09/06/2020 3:10 PM Note Text: PROGRESS NOTE- HEADACHE SERVICE DATE: September 06, 2020 Location: [facility] Participants: patient and provider [...] and bleeds - Lavender (more content not included)...[facility] HospitalEvaluation + Plan note Future Appointments Appointment Date:02/28/2022 08:30:00 AM Scheduled Provider:LORAINE BURNHAM PA-C Location:[facility] Appointment Type:URO [facility] Future Appointments Appointment Date:08/30/2022 03:00:00 PM Scheduled Provider:LORAINE BURNHAM PA-C Location:[facility] Appointment Type:URO Office Visit [facility] evaluation + Plan note Future Appointments Appointment Date:09/11/2023 09:00:00 AM Scheduled Provider:LORAINE BURNHAM PA-C Location:[facility] Appointment Type:URO Office Visit [facility] evaluation + Plan note Future Appointments Appointment Date:10/15/2025 10:20:00 AM Scheduled Provider:CHELO Choe APRN, [place] X Location:[facility] Appointment Type:URO Office Visit [facility] evaluation note* Diagnosis Strain of lumbar region, initial encounter- Primary documented in this encounter [employer] Phone: evaluation note* Diagnosis COVID-19- Primary documented in this encounter [employer] Phone: evaluation note* Diagnosis Intractable nausea and vomiting- Primary Persistent vomiting Hydrosalpinx Chronic salpingitis and oophoritis Left ovarian cyst Other and unspecified ovarian cyst documented in this encounter [employer] Phone: evaluation note* Diagnosis Chest pain, unspecified type- Primary Abdominal pain, acute, right lower quadrant Abdominal pain, right lower quadrant documented in this encounter [employer] Phone: evaluation note* Diagnosis Urticaria- Primary Urticaria, unspecified Moderate persistent asthma with exacerbation Unspecified asthma, with exacerbation documented in this encounter [employer] Phone: evaluation note* Diagnosis Coagulopathy (HCC)- Primary Other and unspecified coagulation defects documented in this encounter [facility] note* Diagnosis Screening for endocrine disorder- Primary Primary hypothyroidism Unspecified hypothyroidism documented in this encounter [facility] note* Diagnosis Screening for endocrine disorder- Primary documented in this encounter [facility]* Diagnosis Disorder of autonomic nervous system Unspecified disorder of autonomic nervous system [facility]* Diagnosis Spasm of muscle- Primary Acute nonspecific chest pain with low risk of coronary artery disease documented in this encounter [employer] Phone: evaluation note* Diagnosis Worsening headaches- Primary Headache Maxillary sinus cyst Other diseases of nasal cavity and sinuses Muscle spasms of lower extremity, unspecified laterality Akathisia Abnormal involuntary movements Blurred vision Other specified visual disturbances Chorea Other choreas documented in this encounter [facility]* Diagnosis Coagulopathy (HCC)- Primary Other and unspecified coagulation defects 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 documented in this encounter [facility] note* Diagnosis Screening for endocrine disorder- Primary documented in this encounter [facility]* Diagnosis Intractable chronic migraine without aura and without status migrainosus- Primary Chronic migraine without aura, with intractable migraine, so stated, without mention of status migrainosus Abnormal involuntary movement Abnormal involuntary movements documented in this encounter [facility]* Diagnosis Allergy, initial encounter- Primary Headaches documented in this encounter [facility]* Diagnosis Bleeding disorder (HCC)- Primary Unspecified hemorrhagic conditions Coagulopathy (HCC) Other and unspecified coagulation defects 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 documented in this encounter [facility]* Diagnosis Screening for endocrine disorder documented in this encounter [facility]* Diagnosis 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) Unspecified hemorrhagic conditions documented in this encounter [facility]* Diagnosis History of COVID-19- Primary Symptomatic bradycardia Other specified cardiac dysrhythmias Blood pressure instability Other abnormal clinical finding documented in this encounter [facility]* Diagnosis Angioedema, initial encounter- Primary Urticaria Urticaria, unspecified Hoarseness of voice Dysphonia Allergic rhinitis, unspecified seasonality, unspecified trigger Adverse effect of drug, initial encounter Allergic reaction to contrast material, initial encounter Adverse food reaction, initial encounter Moderate persistent asthma without complication Unspecified asthma Gastroesophageal reflux disease, unspecified whether esophagitis present documented in this encounter [facility]* Diagnosis Screening for endocrine disorder Muscle spasms of lower extremity, unspecified laterality Akathisia Abnormal involuntary movements [facility]* Diagnosis Chronic migraine without aura, intractable, without status migrainosus- Primary [facility]* Diagnosis Depression, unspecified depression type- Primary Anxiety Anxiety state, unspecified Intractable chronic migraine without aura and without status migrainosus Chronic migraine without aura, with intractable migraine, so stated, without mention of status migrainosus Abnormal involuntary movement Abnormal involuntary movements documented in this encounter [facility] note* Diagnosis White coat syndrome with hypertension- Primary [facility]* Diagnosis Intractable chronic migraine without aura and without status migrainosus Chronic migraine without aura, with intractable migraine, so stated, without mention of status migrainosus Abnormal involuntary movement Abnormal involuntary movements [facility]* Diagnosis Chronic RLQ pain- Primary Abdominal pain, right lower quadrant Diastasis recti Diastasis of muscle documented in this encounter [facility] note* Diagnosis Chronic RLQ pain- Primary Abdominal pain, right lower quadrant documented in this encounter [facility] note* Diagnosis Symptomatic bradycardia Other specified cardiac dysrhythmias Blood pressure instability Other abnormal clinical finding History of COVID-19 documented [facility]* Diagnosis White coat syndrome without diagnosis of hypertension- Primary Elevated blood pressure reading without diagnosis of hypertension documented in this encounter [facility] note* Diagnosis Diffuse pain- Primary Generalized pain Decreased activity tolerance Physical deconditioning Debility, unspecified Orthostatic intolerance documented in this encounter [facility] note* Diagnosis Long COVID- Primary Diffuse pain Generalized pain Decreased activity tolerance PTSD (post-traumatic stress disorder) Posttraumatic stress disorder documented in this encounter [facility] note* Diagnosis Allergic reaction, initial encounter- Primary documented in this encounter [facility] [place] Phone: evaluation note* Diagnosis Depression, unspecified depression type- Primary Anxiety Anxiety state, unspecified Abnormal involuntary movement Abnormal involuntary movements documented in this encounter [facility] note* Diagnosis Post-acute sequelae of COVID-19 [...] documented in this encounter [facility]* Diagnosis Bone pain- Primary Disorder of bone and cartilage, unspecified Malaise and fatigue Other malaise and fatigue Lymphadenopathy Enlargement of lymph nodes [facility]* Diagnosis 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 documented [facility] this encounter [facility]* Diagnosis History of COVID-19- Primary Post-acute [...] documented in this encounter [facility]* Diagnosis History of COVID-19 Post-acute sequelae [...] documented in this encounter [facility]* Diagnosis History of COVID-19 Post-acute sequelae [...] joint, multiple sites [facility]* Diagnosis Post-acute sequelae of COVID-19 (PASC)- [...] documented in this encounter [facility]* Diagnosis Malaise and fatigue- Primary Other malaise and fatigue Lymphadenopathy Enlargement of lymph nodes [facility]* Diagnosis Depression, unspecified depression type- Primary Anxiety Anxiety state, unspecified Abnormal involuntary movement Abnormal involuntary movements [facility]* Diagnosis Chronic migraine without aura, intractable, without status migrainosus- Primary [facility]* Diagnosis Palpitations- Primary Symptomatic bradycardia Other specified cardiac dysrhythmias Orthostatic lightheadedness Dizziness and giddiness Diffuse pain Generalized pain Blood pressure instability Other abnormal clinical finding Decreased activity tolerance Orthostatic intolerance Moderate persistent asthma without complication Unspecified asthma Physical deconditioning Debility, unspecified [facility]* Diagnosis Night sweats- Primary Generalized hyperhidrosis Lymphadenopathy Enlargement of lymph nodes Rash and nonspecific skin eruption Rash and other nonspecific skin eruption Allergic rhinitis, unspecified seasonality, unspecified trigger Moderate persistent asthma without complication Unspecified asthma documented [facility] this encounter [facility]* Diagnosis 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) Unspecified hemorrhagic conditions [facility]* Diagnosis 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 [facility]* Diagnosis Breast screening- Primary Breast screening, unspecified 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 [facility] Diagnosis KATELIN on CPAP- Primary Obstructive [...] hazards to health documented in this encounter [facility] note* Diagnosis Breast screening- Primary Breast screening, unspecified 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 documented in this encounter [facility] note* Diagnosis Palpitations- Primary Orthostatic intolerance Symptomatic bradycardia Other specified cardiac dysrhythmias documented in this encounter [facility] note* Diagnosis Moderate persistent asthma without complication- Primary Unspecified asthma SOB (shortness of breath) Shortness of breath Post-acute sequelae of COVID-19 (PASC) documented in this encounter [facility] note* Diagnosis Migraine without aura and without status migrainosus, not intractable- Primary Migraine without aura, without mention of intractable migraine without mention of status migrainosus documented in this encounter [facility] note* Diagnosis 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) Unspecified hemorrhagic conditions documented in this encounter [facility] note* Diagnosis No-show for appointment- Primary documented in this encounter [facility] note* Diagnosis 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) Unspecified hemorrhagic conditions Coagulopathy (HCC) Other and unspecified coagulation defects documented in this encounter [facility] note* Diagnosis 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) Unspecified hemorrhagic conditions documented in this encounter [facility] note* Diagnosis 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 documented in this encounter [facility] note* Diagnosis Migraine without aura and without status migrainosus, not intractable- Primary Migraine without aura, without mention of intractable migraine without mention of status migrainosus documented in this encounter [facility] note* Diagnosis 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) Unspecified hemorrhagic conditions Coagulopathy (HCC) Other and unspecified coagulation defects documented in this encounter [facility] note* Diagnosis Moderate persistent asthma without complication (CMS/HCC)- Primary documented in this encounter [facility] note* Diagnosis 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 POTS (postural orthostatic tachycardia syndrome) Tachycardia, unspecified documented in this encounter [facility] note* Diagnosis Chronic RLQ pain Abdominal pain, right lower quadrant documented in this encounter [facility] note* Diagnosis Severe persistent asthma with (acute) exacerbation ([facility])- Primary Allergic reaction, subsequent encounter Gastroesophageal reflux disease without esophagitis Esophageal reflux Vocal cord dysfunction Other diseases of vocal cords documented in this encounter [facility]* Diagnosis Vocal cord dysfunction- Primary Other diseases of vocal cords documented in this encounter [facility]* Diagnosis Autonomic dysfunction- Primary Chest pain, unspecified type Type 2 diabetes mellitus with hyperglycemia, without long-term current use of insulin ([facility]) Type 2 diabetes mellitus with hyperglycemia, without long-term current use of insulin ([facility])- Primary Chronic ygdn-OHTWZ-71 syndrome Moderate persistent asthma without complication ([facility]) Chronic allergic rhinitis due to pollen Edema of both legs Edema Acute non-recurrent pansinusitis Allergic reaction, subsequent encounter- Primary Body mass index (BMI) 38.0-38.9, adult Type 2 diabetes mellitus with hyperglycemia, without long-term current use of insulin ([facility])- Primary Chronic gfhx-GXLMO-84 syndrome Moderate persistent asthma without complication ([facility]) Chronic allergic rhinitis due to pollen Edema of both legs Edema PCOS (polycystic ovarian syndrome)- Primary Polycystic ovaries Well woman exam with routine gynecological exam Routine gynecological examination Hormone disorder Unspecified endocrine disorder [facility] Diagnosis Moderate asthma without complication, unspecified whether persistent documented in this encounter [facility] note* Diagnosis Allergic reaction, subsequent encounter- Primary Body mass index (BMI) 38.0-38.9, adult documented in this encounter [facility]* Diagnosis Type 2 diabetes mellitus with hyperglycemia, without long-term current use of insulin ([facility])- Primary Chronic ojcu-JVRGS-25 syndrome Moderate persistent asthma without complication ([facility]) Chronic allergic rhinitis due to pollen Edema of both legs Edema documented in this encounter [facility]* Diagnosis Autonomic dysfunction- Primary Chest pain, unspecified type Type 2 diabetes mellitus with hyperglycemia, without long-term current use of insulin ([facility]) Type 2 diabetes mellitus with hyperglycemia, without long-term current use of insulin ([facility])- Primary Chronic htwz-GBRQY-53 syndrome Moderate persistent asthma without complication ([facility]/HCC) Chronic allergic rhinitis due to pollen Edema of both legs Edema Acute non-recurrent pansinusitis Allergic reaction, subsequent encounter- Primary Body mass index (BMI) 38.0-38.9, adult Type 2 diabetes mellitus with hyperglycemia, without long-term current use of insulin (CMS/HCC)- Primary Chronic mkva-BRCLL-11 syndrome Moderate persistent asthma without complication (CMS/HCC) Chronic allergic rhinitis due to pollen Edema of both legs Edema Type 2 diabetes mellitus with hyperglycemia, without long-term current use of insulin (CMS/HCC)- Primary Autonomic dysfunction Chronic akcm-MFLQU-97 syndrome Moderate persistent asthma without complication (CMS/HCC) Chronic allergic rhinitis due to pollen Edema of both legs Edema MDD (major depressive disorder), recurrent episode, mild (HCC) (CMS/HCC) Class 2 severe obesity due to excess calories with serious comorbidity and body mass index (BMI) of 37.0 to 37.9 in adult (CMS/HCC) Gastroesophageal reflux disease without esophagitis Esophageal reflux documented in this encounter [facility]* Diagnosis Autonomic dysfunction- Primary Chest pain, unspecified type Type 2 diabetes mellitus with hyperglycemia, without long-term current use of insulin (CMS/HCC) Type 2 diabetes mellitus with hyperglycemia, without long-term current use of insulin (CMS/HCC)- Primary Chronic mqqs-LRDMM-12 syndrome Moderate persistent asthma without complication (CMS/HCC) Chronic allergic rhinitis due to pollen Edema of both legs Edema Acute non-recurrent pansinusitis Allergic reaction, subsequent encounter- Primary Body mass index (BMI) 38.0-38.9, adult Type 2 diabetes mellitus with hyperglycemia, without long-term current use of insulin (CMS/HCC)- Primary Chronic dhls-QPGXH-17 syndrome Moderate persistent asthma without complication (CMS/HCC) Chronic allergic rhinitis due to pollen Edema of both legs Edema Type 2 diabetes mellitus with hyperglycemia, without long-term current use of insulin (CMS/HCC)- Primary Autonomic dysfunction Chronic ylpl-WJYFY-97 syndrome Moderate persistent asthma without complication (CMS/HCC) [...] without complication (CMS/HCC) documented in this encounter [facility]* Diagnosis Migraine without aura and without status migrainosus, not intractable- Primary 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 Word finding difficulty Autonomic dysfunction Cervicalgia [facility]* Diagnosis Chronic sinusitis [facility]* Diagnosis 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- Primary documented in [facility]* Diagnosis 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 documented in [facility] encounter [facility]* Diagnosis 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- Primary documented in this [facility]* Diagnosis Migraine without aura and without status migrainosus, not intractable- Primary 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 Cervicalgia Hypersomnia with sleep apnea Hypersomnia with sleep apnea, unspecified Memory difficulties Memory loss KATELIN (obstructive sleep apnea) Obstructive sleep apnea (adult) (pediatric) Trapezius muscle spasm Word finding difficulty documented [facility]* Diagnosis 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 documented in this encounter [facility]* Diagnosis 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/HCC) Type 2 diabetes mellitus with hyperglycemia, without long-term current use of insulin ([facility])- Primary Chronic gous-MUKQB-75 syndrome Moderate persistent asthma without complication (CMS/HCC) Chronic allergic rhinitis due to pollen Edema of both legs Edema Acute non-recurrent pansinusitis Allergic reaction, subsequent encounter- Primary Body mass index (BMI) 38.0-38.9, adult Type 2 diabetes mellitus with hyperglycemia, without long-term current use of insulin ([facility])- Primary Chronic haxh-KSFPD-40 syndrome Moderate persistent asthma without complication (CMS/HCC) Chronic allergic rhinitis due to pollen Edema of both legs Edema Type 2 diabetes mellitus with hyperglycemia, without long-term current use of insulin (CMS/HCC)- Primary Autonomic dysfunction Chronic riay-CXVCW-29 syndrome Moderate persistent asthma without complication (CMS/HCC) [...] right upper extremity documented in this encounter [facility]* Diagnosis Autonomic dysfunction- Primary Chest pain, unspecified type Type 2 diabetes mellitus with hyperglycemia, without long-term current use of insulin (HCC) Type 2 diabetes mellitus with hyperglycemia, without long-term current use of insulin (HCC)- Primary Chronic qmpf-UALFL-96 syndrome Moderate persistent asthma without complication (HCC) Chronic allergic rhinitis due to pollen Edema of both legs Edema Acute non-recurrent pansinusitis Allergic reaction, subsequent encounter- Primary Body mass index (BMI) 38.0-38.9, adult Type 2 diabetes mellitus with hyperglycemia, without long-term current use of insulin (HCC)- Primary Chronic kkja-UDSTN-85 syndrome Moderate persistent asthma without complication (HCC) Chronic allergic rhinitis due to pollen Edema of both legs Edema Type 2 diabetes mellitus with hyperglycemia, without long-term current use of insulin (HCC)- Primary Autonomic dysfunction Chronic ntdz-UFBNP-24 syndrome Moderate persistent asthma without complication (HCC) [...] both legs Edema documented in this encounter [facility]* Diagnosis Migraine without aura and without status migrainosus, not intractable documented [facility]* Diagnosis Edema, unspecified type Palpitations with regular cardiac rhythm [facility] Diagnosis Onset Date Resolution Status Admit Date Right forearm injury acute Augu st 2024 11:37am [facility] Work Phone: Evaluation note* Diagnosis Migraine without aura and without status migrainosus, not intractable documented [facility]* Diagnosis Autonomic dysfunction- Primary Chest pain, unspecified type Type 2 diabetes mellitus with hyperglycemia, without long-term current use of insulin (HCC) Type 2 diabetes mellitus with hyperglycemia, without long-term current use of insulin ([facility])- Primary Chronic dqev-VPOCC-42 syndrome Moderate persistent asthma without complication (HCC) Chronic allergic rhinitis due to pollen Edema of both legs Edema Acute non-recurrent pansinusitis Allergic reaction, subsequent encounter- Primary Body mass index (BMI) 38.0-38.9, adult Type 2 diabetes mellitus with hyperglycemia, without long-term current use of insulin (HCC)- Primary Chronic frzv-UMSXS-54 syndrome Moderate persistent asthma without complication (HCC) Chronic allergic rhinitis due to pollen Edema of both legs Edema Type 2 diabetes mellitus with hyperglycemia, without long-term current use of insulin (HCC)- Primary Autonomic dysfunction 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-HCC) Gastroesophageal reflux disease without esophagitis Esophageal reflux Annual physical exam- Primary Routine general medical examination at a health care facility Type 2 diabetes mellitus with hyperglycemia, without long-term current use of insulin (HCC) Primary hypothyroidism Unspecified hypothyroidism Edema of both legs Edema Chronic rhinosinusitis- Primary Unspecified sinusitis (chronic) Right wrist pain Pain in joint, forearm Right forearm pain documented in this encounter [facility]* Diagnosis POTS (postural orthostatic [...] cervix and uterus [facility] Diagnosis Autonomic dysfunction- Primary Chest pain, unspecified type Type 2 diabetes mellitus with hyperglycemia, without long-term current use of insulin (HCC) Type 2 diabetes mellitus with hyperglycemia, without long-term current use of insulin (HCC)- Primary Chronic qclh-MBSSU-37 syndrome Moderate persistent asthma without complication (HCC) Chronic allergic rhinitis due to pollen Edema of both legs Edema Acute non-recurrent pansinusitis Allergic reaction, subsequent encounter- Primary Body mass index (BMI) 38.0-38.9, adult Type 2 diabetes mellitus with hyperglycemia, without long-term current use of insulin (HCC)- Primary Chronic qizx-KQFJL-09 syndrome Moderate persistent asthma without complication (HCC) Chronic allergic rhinitis due to pollen Edema of both legs Edema Type 2 diabetes mellitus with hyperglycemia, without long-term current use of insulin (HCC)- Primary Autonomic dysfunction Chronic bxvf-UCGPJ-77 syndrome Moderate persistent asthma without complication (HCC) [...] Right forearm pain documented in this encounter [facility]* Diagnosis Chronic sinusitis- Primary Vocal cord dysfunction Other diseases of vocal cords Geographic tongue Hypertrophy of both inferior nasal turbinates Tympanosclerosis, bilateral Severe persistent asthma without complication ([facility]-HCC) documented [facility] Narrative No data available for this section [facility] Discharge instructions* Instructions* Kody Cm MD [...] through Care Everywhere. * Strain or Sprain ([place]) [facility] Dis[facility]* Attachments The following attachments cannot be sent through Care Everywhere. * Chest Pain ([place]) * Restless Legs Syndrome ([place]) [facility] Hospital Discharge instructions No data available for this section [facility] InstructionsNot on filedocumented in this encounter [facility] [...] this section [facility] reason for referral (narrative)* Diagnostic Procedure Only (Routine) - Authorized Specialty Diagnoses / Procedures Referred By Sabas harris Referred To Contact US IMAGING Diagnoses Chronic RLQ pain Procedures US SOFT TISSUE ABDOMEN US ABDOMINAL REAL TIME W/[place] [address] [place] [address] Us Imaging Referral ID Status Reason Start Date Expiration Date Visits Requested Visits Authorized [id number] Authorized Auto-Generat ed Referral 08/15/2021 09/14/2022 1 1 [facility] for referral (narrative)* Diagnostic Procedure Only (Routine) - Authorized Specialty Diagnoses / Procedures Referred By Leviac t Referred To Contact US IMAGING Diagnoses Chronic RLQ pain Procedures US PELVIS LTD US PELVIC NONOBSTETRIC IMAGE DCMTN LIMITED/F/[place] [address] [place] [address] Us Imaging Referral ID Status Reason Start Date Expiration Date Visits Requested Visits Authorized [id number] Authorized Auto-Generat ed Referral 08/16/2021 09/15/2022 1 1 [facility] for referral (narrative)* Outpatient Procedure (Routine) - Closed Specialty Diagnoses / Procedures Referred By Leviac t Referred [facility] Diagnoses Symptomatic bradycardia Blood pressure instability History of COVID-19 Procedures ECHO ECHO TTHRC R-T 2D W/WOM-MODE COMPL SPEC&COLR D Sai Perez MD [address] [place] [address] [facility] [place] [address] [place] [address] Referral ID Status Reason Start Date Expiration Date V isits Requested Visits Authorized [id number] Closed Auto-Generate d Referral 07/21/2021 07/21/2022 1 1 [facility] for referral (narrative)* Diagnostic Procedure Only (Routine) - Pending Review Specialty Diagnoses / Procedures Referred By Contac t Referred To Contact US IMAGING Diagnoses Post-acute sequelae of COVID-19 (PASC) Mass of left axilla Procedures US CHEST WALL/SOFT TISSUE US CHEST REAL TIME W/IMAGE DOCUMENTATION Landen Mahmood APRN.MACY [address] [place] [address] Us Imaging Referral ID Status Reason Start Date Expiration Date Visits Requested Visits Authorized [id number] Pending Review Auto-Generat ed Referral 09/19/2021 10/19/2022 [...] multiple sites Procedures LUNG VOLUMES Landen Mahmood APRN.[employer] [address] [place] [address] [place] [address] Referral ID Status Reason Start Date Expiration Date Visits Requested Visits Authorized [id number] Pending Review Auto-Generat ed Referral 09/19/2021 10/19/2022 1 1 * Outpatient Procedure (Routine) - Pending Review Specialty Diagnoses / Procedures Referred By Contac t Referred To [facility] [place] Diagnoses History of COVID-19 Post-acute sequelae of COVID-19 (PASC) SOB (shortness of breath) Chronic cough Chest discomfort Palpitation CAVANAUGH (dyspnea on exertion) Dizziness Near syncope Night sweats Orthopnea Anxiety Myalgia Pain in joint, multiple sites Procedures SPIROMETRY - BASELINE AND POST DILATOR BRNCDILAT RSPSE SPMTRY PRE&POST-BRNCDILAT ADMN Landen Mahmood APRN.[employer] [address] [place] [address] [facility] [address] [place] [address] Referral ID Status Reason Start Date Expiration Date Visits Requested Visits Authorized [id number] Pending Review Auto-Generat ed Referral 09/19/2021 10/19/2022 [...] WALK CARDIOPULMONARY EXERCISE STRESS Landen Mahmood APRN.CNP [address] [place] [address] [address] Referral ID Status Reason Start Date Expiration Date Visits Requested Visits Authorized [id number] Pending Review Auto-Generat ed Referral 09/19/2021 10/19/2022 [...] CAPACITY (DLCO) DIFFUSING CAPACITY Landen Mahmood APRN.CNP [address] [place] [address] [address] Referral ID Status Reason Start Date Expiration Date Visits Requested Visits Authorized [id number] Pending Review Auto-Generat ed Referral 09/19/2021 10/19/2022 1 1 [facility] for referral (narrative)* Outpatient Procedure (Routine) - Pending Review Specialty Diagnoses / Procedures Referred By Leviac t Referred To Contact [facility] Diagnoses KATELIN on CPAP Poor compliance with CPAP treatment Procedures PAP NAP PSG (CPAP, BILEVEL, ASV) SLEEP STD REC VNTJ RESPIR ECG/HRT RATE&O2 ATTN Meena Grissom MD [address] [place] [address] [place] [address] Referral ID Status Reason Start Date Expiration Date Visits Requested Visits Authorized [id number] Pending Review Auto-Generat ed Referral 12/16/2022 1 1 [facility] for referral (narrative)* Outpatient Procedure (Routine) - Pending Review Specialty Diagnoses / Procedures Referred By Sabas harris Referred To Contact [facility] Diagnoses Moderate persistent asthma without complication SOB (shortness of breath) Post-acute sequelae of COVID-19 (PASC) Procedures SPIROMETRY - BASELINE AND POST DILATOR BRNCDILAT RSPSE SPMTRY PRE&POST-BRNCDILAT ADMN Jaja Cabral PA-C [address] [place] [address] [address] Referral ID Status Reason Start Date Expiration Date Visits Requested Visits Authorized [id number] Pending Review Auto-Generat ed Referral 12/06/2021 01/05/2023 1 1 * Outpatient Procedure (Routine) - Pending Review Specialty Diagnoses / Procedures Referred By Sabas harris Referred To Contact [facility] [place] Diagnoses Moderate persistent asthma without complication SOB (shortness of breath) Post-acute sequelae of COVID-19 (PASC) Procedures NITRIC OXIDE, EXHALED NITRIC OXIDE GAS DETERMINATION Jaja Cabral PA-C [address] [place] [address] Respiratory [place] [address] [place] [address] Referral ID Status Reason Start Date Expiration Date Visits Requested Visits Authorized [id number] Pending Review Auto-Generat ed Referral 12/06/2021 01/05/2023 1 1 [facility] for referral (narrative)* Diagnostic Procedure Only (Routine) - Closed Specialty Diagnoses / Procedures Referred By Contac t Referred To Contact US IMAGING Diagnoses Chronic RLQ pain Procedures US PELVIS LTD US PELVIC NONOBSTETRIC IMAGE DCMTN LIMITED/F/[place] [address] [place] [address] [place] [address] Referral ID Status Reason Start Date Expiration Date V isits Requested Visits Authorized [id number] Closed Auto-Generate d Referral 08/16/2021 09/15/2022 1 1 [facility] for referral (narrative)* Consultation (Routine) - Pending Review Specialty Diagnoses / Procedures Referred By Contac t Referred To Contact Speech Pathology Diagnoses Vocal cord dysfunction Procedures AL OFFICE/OUTPATIENT NEW HIGH MDM 60 MINUTES Christy Painting MD [address] [facility] [address] [place] [address] Referral ID Status Reason Start Date Expiration Date Visits Requested Visits Authorized [id number] Pending Review Specialty Services Required 11/07/2023 05/05/2024 1 1 [facility] for referral (narrative)* Consultation (Routine) - Pending Review Specialty Diagnoses / Procedures Referred By Contac t Referred To Contact Allergy Diagnoses Allergic reaction, subsequent encounter Procedures AL OFFICE/OUTPATIENT NEW HIGH MDM 60 MINUTES Cas Dowell MD [address] [place] [address] Christy Painting MD [address] [facility] [place] [address] [place] [address] Referral ID Status Reason Start Date Expiration Date Visits Requested Visits Authorized [id number] Pending Review Specialty Services Required 09/26/2023 03/24/2024 1 1 [facility] for referral (narrative)No reason for referral [facility]: Reason for visit Narrative* Outpatient Procedure (Routine) - Closed Specialty Diagnoses / Procedures Referred By Leviac t Referred To Contact [facility] Diagnoses Symptomatic bradycardia Blood pressure instability History of COVID-19 Procedures ECHO ECHO TTHRC R-T 2D W/WOM-MODE COMPL SPEC&COLR D Sai Perez MD [address] [place] [address] [place] [address] Referral ID Status Reason Start Date Expiration Date V isits Requested Visits Authorized [id number] Closed Auto-Generate d Referral 07/21/2021 07/21/2022 1 1 [facility] for visit Narrative* Outpatient Procedure (Routine) [...] MINUTE WALK CARDIOPULMONARY EXERCISE STRESS Landen Mahmood APRN.JAVA MOBILE DEVELOPER [address] [place] [phone] [facility] [place] [address] [place] [address] Referral ID Status Reason Start Date Expiration Date V isits Requested Visits Authorized [id number] Closed Auto-Generate d Referral 09/19/2021 10/19/2022 1 1 [facility] for visit Narrative* Diagnostic Procedure Only (Routine) - Closed Specialty Diagnoses / Procedures Referred By Leviac t Referred To Contact US IMAGING Diagnoses Chronic RLQ pain Procedures US PELVIS LTD US PELVIC NONOBSTETRIC IMAGE DCMTN LIMITED/[place] [address] [place] [address] [facility] [place] [address] Referral ID Status Reason Start Date Expiration Date V isits Requested Visits Authorized [id number] Closed Auto-Generate d Referral 08/16/2021 09/15/2022 1 1 [facility] for visit Narrative* Cardiology (Routine) - Closed Specialty Diagnoses / Procedures Referred By Contac t Referred To Contact Cardiology Diagnoses Edema, unspecified type Palpitations with regular cardiac rhythm Procedures Echo (TTE) complete (PRN contrast/bubble/strain/3D) AL ECHO TTHRC R-T 2D W/WOM-MODE COMPL SPEC&COLR D AL TTE W OR WO FOL WCON,DOPPLER Macrina Wadsworth, SUPERVISOR PASTE PLANT - JAVA MOBILE DEVELOPER [address] [place] [address] Phone: tel: fax: Referral ID Status Reason Start Date Expiration Date Visits Re quested Visits Authorized [id number] Closed 08/18/2024 08/15/2025 1 1 [facility] Advance Directives No Advanced Directives Records FoundDocuments on File Type Date Recorded Patient Appian Bpm Developer Expl anation ACP-Advance Directive ACP-Power of 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 Systems Engineer Latest Code Status on File Code Status Date Activated Date Inactivated Comments Full Code 12/30/2011 10:09 AM 12/31/2011 4:00 PM Documents on File Type Date Recorded Patient Appian Bpm Developer Expl anation Advance Directive(s) 05/18/2015 10:11 AM Advance Directive(s) 05/14/2015 12:11 PM Documents on File Type Date Recorded Patient Appian Bpm Developer Expl anation Advance Directive(s) 06/27/2021 1:27 PM Advance Directive(s) 05/18/2015 10:11 AM Advance Directive(s) 05/14/2015 12:11 PM Documents on File Type Date Recorded Patient Appian Bpm Developer Expl anation Advance Directive(s) 06/27/2021 1:27 PM Advance Directive(s) 05/18/2015 10:11 AM Advance Directive(s) 05/14/2015 12:11 PM Documents on File Type Date Recorded Patient Appian Bpm Developer Expl anation ACP-Advance Directive 01/12/2022 2:29 PM ACP-Power of 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 Systems Engineer 01/12/2022 2:29 PM Latest Code Status on File Code Status Date Activated Date Inactivated Comments Full Code 01/08/2022 5:06 PM 01/11/2022 3:07 PM Full Code 12/30/2011 10:09 AM 12/31/2011 4:00 PM Healthcare Agents on File Name Relationship Healthcare Agent Relationship Communication Sean Tran Spouse Primary Decision Maker Documents on File Type Date Recorded Patient Appian Bpm Developer Expl anation ACP-Advance Directive 01/12/2022 2:29 PM ACP-Power of 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 Systems Engineer 01/12/2022 2:29 PM Date Activated Date Inactivated [...] September 08 4:54pm Summary Purpose Family History No Family History Records Found Relationship Condition Age at Onset Recorded Date/T edgar father Heart disease Unknown Unknown Diabetes mellitus Unknown Hypertension Unknown mother Diabetes mellitus Unknown History of stroke Unknown Heart disease Unknown Reason for Referral Specialty Diagnoses / Procedures Referred By Sabas t Referred To Contact Neurology Diagnoses Muscle spasms of lower extremity, unspecified laterality Akathisia Procedures CONSULT TO NEUROLOGY OFFICE/OUTPATIENT [facility] 60-74 MINUTES Peter Knight APRN.JAVA MOBILE DEVELOPER [address] [place] [address] Referral ID Status Reason Start Date Expiration Date Visits Requested Visits Authorized [id number] Authorized PCP Requested Referral 06/27/2021 06/27/2022 1 1 Specialty Diagnoses / Procedures Referred By Contac t Referred To Contact Ent - Otolaryngology Diagnoses Maxillary sinus cyst Procedures CONSULT TO ENT OFFICE/OUTPATIENT [facility] 60-74 MINUTES Peter Knight APRN.CNP [address] [place] [address] Referral ID Status Reason Start Date Expiration Date Visits Requested Visits Authorized [id number] Authorized PCP Requested Referral 06/27/2021 06/27/2022 1 1 Specialty Diagnoses / Procedures Referred By Contac t Referred To Contact Diagnoses Coagulopathy (HCC) Qualitative platelet disorder (HCC) Procedures CONSULT TO MEDICAL GENETICS - GENERAL OFFICE/OUTPATIENT [facility] 60-74 MINUTES MEDICAL GENETICS COUNSELING EACH 30 MINUTES Yan Bass MD [address] [place] [address] [place] [address] [facility] [place] [address] [place] [address] Referral ID Status Reason Start Date Expiration Date Visits Requested Visits Authorized [id number] Authorized PCP Requested Referral Auto-Generate d Referral 07/01/2021 07/01/2022 1 1 Specialty Diagnoses / Procedures Referred By Contac t Referred To Contact Psychology Diagnoses Intractable chronic migraine without aura and without status migrainosus Abnormal involuntary movement Procedures CONSULT TO PSYCHOLOGY OFFICE/OUTPATIENT [facility] 60-74 MINUTES Tracee Mcintyre MD [address] [place] [id number] Referral ID Status Reason Start Date Expiration Date Visits Requested Visits Authorized [id number] Pending Review PCP Requested Referral 07/06/2021 07/06/2022 1 1 Specialty Diagnoses / Procedures Referred By Contac t Referred To Contact [facility] Diagnoses Intractable chronic migraine without aura and without status migrainosus Abnormal involuntary movement Procedures CONSULT TO PHYSICAL THERAPY PHYSICAL THERAPY EVALUATION HIGH COMPLEX [place] [address] [place] [address] [facility] [address] [place] [address] Referral ID Status Reason Start Date Expiration Date Visits Requested Visits Authorized [id number] Pending Review Auto-Generat ed Referral 07/06/2021 07/06/2022 1 1 Specialty Diagnoses / Procedures Referred By Contac t Referred To Contact Allergy Diagnoses Allergy, initial encounter Procedures CONSULT TO ALLERGY/IMMUNOLOGY OFFICE/OUTPATIENT [facility] MDM 60-74 MINUTES Aldo Ann MD [address] [place] [address] Referral ID Status Reason Start Date Expiration Date Visits Requested Visits Authorized [id number] Authorized PCP Requested Referral 07/14/2021 07/14/2022 1 1 Specialty Diagnoses / Procedures Referred By Contac t Referred To Contact [facility] Diagnoses History of COVID-19 Procedures [facility] Sai Perez MD [address] [place] [address] [facility] [address] [place] [address] Referral ID Status Reason Start Date Expiration Date Visits Requested Visits Authorized [id number] Authorized PCP Requested Referral 07/21/2021 07/21/2022 1 1 Specialty Diagnoses / Procedures Referred By Contac t Referred To Contact [facility] Diagnoses Symptomatic bradycardia Blood pressure instability History of COVID-19 Procedures ECHO ECHO TTHRC R-T 2D W/WOM-MODE COMPL SPEC&COLR D Sai Perez MD [address] [place] [address] [facility] [place] [address] [place] [address] Referral ID Status Reason Start Date Expiration Date Visits Requested Visits Authorized [id number] Authorized Auto-Generat ed Referral 07/21/2021 07/21/2022 1 1 Specialty Diagnoses / Procedures Referred By Contac t Referred To Contact Ent - Otolaryngology Diagnoses Hoarseness of voice Procedures CONSULT TO ENT OFFICE/OUTPATIENT [facility] MDM 60-74 MINUTES Henny Rushing MD [address] [address] Rc Cardenas, PhD, CCC-RETAIL SALES [employer]CH[employer]IS[employer] DEVELOPMENT [address] [place] [address] Referral ID Status Reason Start Date Expiration Date Visits Requested Visits Authorized [id number] Authorized PCP Requested Referral 07/25/2021 07/25/2022 1 1 Specialty Diagnoses / Procedures Referred By Contac t Referred To Contact Diagnoses Diffuse pain Decreased activity tolerance Physical deconditioning Procedures WELLNESS CONSULT OFFICE/OUTPATIENT [facility] 60-74 MINUTES Peter Knight APRN.JAVA MOBILE DEVELOPER [address] [place] [address] Referral ID Status Reason Start Date Expiration Date Visits Requested Visits Authorized [id number] Authorized PCP Requested Referral 08/23/2021 08/23/2022 1 1 Specialty Diagnoses / Procedures Referred By Contac t Referred To Contact Diagnoses Long COVID PTSD (post-traumatic stress disorder) Procedures MIND/BODY HOLISTIC PSYCHOTHERAPY OFFICE/OUTPATIENT [facility] 60-74 MINUTES Ayaka Bright MD [address] [address] Referral ID Status Reason Start Date Expiration Date Visits Requested Visits Authorized [id number] Authorized PCP Requested Referral 08/30/2021 08/30/2022 1 1 Specialty Diagnoses / Procedures Referred By Contac t Referred To Contact Diagnoses Long COVID Diffuse pain Decreased activity tolerance Procedures CONSULT TO [facility] OFFICE/OUTPATIENT [facility] 60-74 MINUTES Ayaka Bright MD [facility] [place] [address] Referral ID Status Reason Start Date Expiration Date Visits Requested Visits Authorized [id number] Authorized PCP Requested Referral 08/30/2021 08/30/2022 1 1 Specialty Diagnoses / Procedures Referred By Contac t Referred To Contact Diagnoses Chronic migraine without aura, intractable, without status migrainosus Procedures PROVIDER ORDERED FOLLOW UP OFFICE/OUTPATIENT [facility] 60-74 MINUTES Bhargavi Ramesh PA-C [address] [place] [address] Referral ID Status Reason Start Date Expiration Date Visits Requested Visits Authorized [id number] Authorized PCP Requested Referral 10/19/2022 1 1 Specialty Diagnoses / Procedures Referred By Contac t Referred To Contact Hematology Diagnoses Lymphadenopathy Night sweats Procedures CONSULT TO HEMATOLOGY OFFICE/OUTPATIENT [facility] 60-74 MINUTES Henny Rushing MD [address] [address] Referral ID Status Reason Start Date Expiration Date Visits Requested Visits Authorized [id number] Authorized PCP Requested Referral 10/24/2021 10/24/2022 1 1 Specialty Diagnoses / Procedures Referred By Contac t Referred To Contact Diagnoses Migraine without aura and without status migrainosus, not intractable Procedures PROVIDER ORDERED FOLLOW UP OFFICE/OUTPATIENT [facility] 60-74 MINUTES Bhargavi Ramesh PA-C [address] [place] [phone] Referral ID Status Reason Start Date Expiration Date Visits Requested Visits Authorized [id number] Authorized PCP Requested Referral 04/16/2022 01/16/2023 1 1 Specialty Diagnoses / Procedures Referred By Contac t Referred To Contact Cardiology Diagnoses 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) Coagulopathy (HCC) Procedures CONSULT TO CARDIOLOGY OFFICE/OUTPATIENT [facility] 60-74 MINUTES Fuentes Amaral MD [address] [place] [address] [place] [address] Referral ID Status Reason Start Date Expiration Date Visits Requested Visits Authorized [id number] Authorized PCP Requested Referral 02/16/2022 02/16/2023 1 1 Referral ID Status Reason Start Date Expiration Date Visits Requested Visits Authorized [id number] Authorized PCP Requested Referral 10/27/2022 04/26/2023 1 1 Specialty Diagnoses / Procedures Referred By Contac t Referred To Contact Diagnoses Moderate asthma without complication, unspecified whether persistent Procedures Full PFT Study With Bronchodilator Nabor Yancey, SUPERVISOR PASTE PLANT - JAVA MOBILE DEVELOPER [address] [address] Referral ID Status Reason Start Date Expiration Date V isits Requested Visits Authorized [id number] Not Required - RTA 12/04/2023 12/03/2024 1 [...] Comments Allergic Reaction Unknown trigger, 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 Pt used epi-pen prior to arrival and reports feeling short of breath Reason Comments surgery clearence Reason Comments Adrenal Specialty Diagnoses / Procedures Referred By Contac t Referred To Contact Endocrinology Diagnoses Symptomatic bradycardia Blood pressure instability Procedures CONSULT TO ENDOCRINOLOGY OFFICE/OUTPATIENT [facility] 60-74 MINUTES Peter Knight APRN.JAVA MOBILE DEVELOPER [address] [place] [address] Referral ID Status Reason Start Date Expiration Date V isits Requested Visits Authorized [id number] Closed PCP Requested Referral 05/24/2021 05/24/2022 1 [...] CONSULT TO MEDICAL GENETICS - GENERAL OFFICE/OUTPATIENT [facility] 60-74 MINUTES MEDICAL GENETICS COUNSELING EACH 30 MINUTES Yan Bass MD [address] [place] [address] [place] [address] [facility] [place] [address] [place] [address] Referral ID Status Reason Start Date Expiration Date V isits Requested Visits Authorized [id number] Closed PCP Requested Referral Auto-Generated Referral 07/01/2021 07/01/2022 1 1 Reason Comments Coagulopathy Specialty Diagnoses / Procedures Referred By Contac t Referred To Contact Cardiology Diagnoses Symptomatic bradycardia Blood pressure instability Procedures CONSULT TO CARDIOLOGY OFFICE/OUTPATIENT [facility] 60-74 MINUTES Peter Knight APRN.JAVA MOBILE DEVELOPER [address] [place] [phone] Referral ID Status Reason Start Date Expiration Date V isits Requested Visits Authorized [id number] Closed PCP Requested Referral 05/24/2021 05/24/2022 1 1 Reason Comments Allergies Asthma Reason Comments Follow Up Chronic Migraine Reason Comments Consult Specialty Diagnoses / Procedures Referred By Contac t Referred To Contact Psychology Diagnoses Intractable chronic migraine without aura and without status migrainosus Abnormal involuntary movement Procedures CONSULT TO PSYCHOLOGY OFFICE/OUTPATIENT [facility] 60-74 MINUTES Tracee Mcintyre MD [address] [facility] [place] [phone] Referral ID Status Reason Start Date Expiration Date Visits Requested Visits Authorized [id number] Pending Review PCP Requested Referral 07/06/2021 07/06/2022 [...] HIGH COMPLEX 45 MINS Tracee Mcintyre MD [address] [place] [phone] [facility] [place] [address] [place] [address] Referral ID Status Reason Start Date Expiration Date V isits Requested Visits Authorized [id number] Authorized 02/05/2021 02/04/2022 99 99 Reason Comments Consult rt. ing hernia Reason Comments Insurance Authorization Emgality 120MG/M L syringes (migraine) Reason Comments Established Patient Follow-Up Reason Comments Results - Ct Reason Comments Covid19 Concern Specialty Diagnoses / Procedures Referred By Contac t Referred To Contact Diagnoses Diffuse pain Decreased activity tolerance Physical deconditioning Procedures WELLNESS CONSULT OFFICE/OUTPATIENT [facility] 60-74 MINUTES Peter Knight APRN.JAVA MOBILE DEVELOPER [address] [place] [address] Referral ID Status Reason Start Date Expiration Date V isits Requested Visits Authorized [id number] Closed PCP Requested Referral 08/23/2021 08/23/2022 1 1 Reason Comments Allergic Reaction Onset prior to arriv al. Pt reports her face is burning and feels short of breath. 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 Diagnoses History of COVID-19 Procedures CONSULT TO [facility] Sai Perez MD [address] [place] [address] Pulm [facility] [address] [place] [address] Referral ID Status Reason Start Date Expiration Date V isits Requested Visits Authorized [id number] Closed PCP Requested Referral 07/21/2021 07/21/2022 1 [...] DIFFUSION CAPACITY (DLCO) DIFFUSING CAPACITY Landen Mahmood APRN.JAVA MOBILE DEVELOPER [address] [place] [address] [facility] [place] [address] [place] [address] Referral ID Status Reason Start Date Expiration Date V isits Requested Visits Authorized [id number] Closed Auto-Generate d Referral 09/19/2021 10/19/2022 1 [...] DILATOR BRNCDILAT RSPSE SPMTRY PRE&POST-BRNCDILAT ADMN Landen Mahmood, LIO.JAVA MOBILE DEVELOPER [address] [place] [address] [facility] [place] [address] [place] [address] Referral ID Status Reason Start Date Expiration Date V isits Requested Visits Authorized [id number] Closed Auto-Generate d Referral 09/19/2021 10/19/2022 1 1 Specialty Diagnoses / Procedures [facility] Diagnoses History of COVID-19 Post-acute sequelae of COVID-19 (PASC) SOB (shortness of breath) Chronic cough Chest discomfort Palpitation CAVANAUGH (dyspnea on exertion) Dizziness Near syncope Night sweats Orthopnea Anxiety Myalgia Pain in joint, multiple sites Procedures LUNG VOLUMES PLETHYSMOGRAPHY LUNG VOLUMES W/WO AIRWAY RESIST Landen Mahmood, LIO.JAVA MOBILE DEVELOPER [address] [place] [address] [facility] [place] [address] [place] [address] Referral ID Status Reason Start Date Expiration Date V isits Requested Visits Authorized [id number] Closed Auto-Generate d Referral 09/21/2021 02/04/2022 1 1 Reason Comments Radio Gen A21 Reason Comments discuss test results Reason Comments Follow Up Chronic Migraine Reason Comments Palpitations Reason Comments Allergic Rhinitis Asthma Reason Comments coagulpathy Reason Comments Established Patient Reason Comments Appointment Download Pap Therapy 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 UP 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 Reason Comments Sleep Apnea Reason Comments Breast screening Reason Comments Patient Update Reason Comments Follow Up Migraine Specialty Diagnoses / Procedures Referred By Contac t Referred To Contact Diagnoses Chronic migraine without aura, intractable, without status migrainosus Procedures PROVIDER ORDERED FOLLOW UP OFFICE/OUTPATIENT NEW HIGH MDM 60-74 MINUTES Bhargavi Ramesh PA-C [address] [place] [address] Referral ID Status Reason Start Date Expiration Date V isits Requested Visits Authorized [id number] Closed PCP Requested Referral 01/18/2022 10/19/2022 1 [...] up Specialty Diagnoses / Procedures Referred By Leviac t Referred To Contact Diagnoses Migraine without aura and without status migrainosus, not intractable Procedures PROVIDER ORDERED FOLLOW UP OFFICE/OUTPATIENT [facility] 60-74 MINUTES Bhargavi Ramesh PA-C [address] [place] [address] Referral ID Status Reason Start Date Expiration Date V isits Requested Visits Authorized [id number] Closed PCP Requested Referral 04/16/2022 01/16/2023 1 [...] Allergy Diagnoses Allergic reaction, subsequent encounter Procedures AL OFFICE/OUTPATIENT NEW HIGH MDM 60 MINUTES Cas Dowell MD [address] [place] [address] Christy Painting MD [address] [place] [address] [place] [address] Referral ID Status Reason Start Date Expiration Date Visits Requested Visits Authorized [id number] Pending Review Specialty Services Required 09/26/2023 03/24/2024 1 1 Reason Comments Well Women Visit Specialty Diagnoses / Procedures Referred By Sabas harris Referred To Contact Diagnoses Moderate asthma without complication, unspecified whether persistent Procedures Full PFT Study With Bronchodilator Nabor Yancey, SUPERVISOR PASTE PLANT - JAVA MOBILE DEVELOPER [address] [address] Referral ID Status Reason Start Date Expiration Date V isits Requested Visits Authorized [id number] Not Required - RTA 12/04/2023 12/03/2024 1 [...] To Contact Otolaryngology Diagnoses Chronic rhinosinusitis Procedures AL OFFICE OUTPATIENT VISIT 60-74 MINS HIGH MDM [id number] (SNOMED CT) - AMB REFERRAL TO ENT Cas Dowell MD [address] [place] [address] Phone: tel: fax: Terri Han MD [address] [facility] [address] [place] [address] Phone: tel: fax: Referral ID Status Reason Start Date Expiration Date V isits Requested Visits Authorized [id number] Pending Review 09/25/2024 03/24/2025 1 1 Ordered [...] ONCE, 1 dose, On 06/04/21 at 1630 163 (Given - Provid er: Terri Painter [...] dose 1415 (Given - Provid er: Clementina J Hemminger, RN) INFORMATION SOURCE (unrecogn ized section and content) DATE CREATED AUTHOR 03/08/2021 [facility] DATE CREATED AUTHOR AUTHOR'S ORGANIZ ATION 04/26/2021 [facility] DATE CREATED AUTHOR AUTHOR'S ORGANIZ ATION 07/27/2021 [facility] DATE CREATED AUTHOR AUTHOR'S ORGANIZ ATION 12/22/2021 [facility] DATE CREATED AUTHOR AUTHOR'S ORGANIZ ATION 04/07/2022 [facility] DATE CREATED AUTHOR AUTHOR'S ORGANIZ ATION 06/17/2022 [facility] DATE CREATED AUTHOR AUTHOR'S ORGANIZ ATION 01/05/2024 [facility] DATE CREATED AUTHOR AUTHOR'S ORGANIZ ATION 02/07/2024 [facility] DATE CREATED AUTHOR AUTHOR'S ORGANIZ ATION 08/25/2024 [facility] DATE CREATED AUTHOR AUTHOR'S ORGANIZ ATION 09/10/2024 [facility] DATE CREATED AUTHOR AUTHOR'S ORGANIZ ATION 09/27/2024 [facility] Special[facility] DATE CREATED AUTHOR AUTHOR'S ORGANIZ ATION 10/01/2024 [facility] DATE CREATED AUTHOR AUTHOR'S ORGANIZ ATION 10/12/2024 [facility] DATE CREATED AUTHOR AUTHOR'S ORGANIZ ATION 10/29/2024 [facility] DATE CREATED AUTHOR AUTHOR'S ORGANIZ ATION 10/31/2024 [facility] DATE CREATED AUTHOR AUTHOR'S ORGANIZ ATION 11/10/2024 [facility] Care Teams (unrecognized sec tion and content) Septic Cleaner Relationship Specialty Start Date End Date Cas Dowell MD PCP - General 09/04/11 Septic Cleaner Relationship Specialty Start Date End Date Cas Dowell MD PCP - General 09/04/11 Septic Cleaner Relationship Specialty Start Date End Date Cas Dowell PCP - General Family Practice 02/20/14 Septic Cleaner Relationship Specialty Start Date End Date Cas Dowell MD PCP - General 09/04/11 Septic Cleaner Relationship Specialty Start Date End Date Cas Dowell PCP - General Family Practice 02/20/14 Septic Cleaner Relationship Specialty Start Date End Date Cas Dowell PCP - General Family Practice 02/20/14 Septic Cleaner Relationship Specialty Start Date End Date Cas Dowell PCP - General Family Practice 02/20/14 Septic Cleaner Relationship Specialty Start Date End Date Cas Dowell PCP - General Family Practice 02/20/14 Septic Cleaner Relationship Specialty Start Date End Date Cas Dowell PCP - General Family Practice 02/20/14 Septic Cleaner Relationship Specialty Start Date End Date Cas Dowell PCP - General Family Practice 02/20/14 Septic Cleaner Relationship Specialty Start Date End Date Cas Dowell PCP - General Family Practice 02/20/14 Septic Cleaner Relationship Specialty Start Date End Date Cas Dowell MD PCP - General 09/04/11 Septic Cleaner Relationship Specialty Start Date End Date Cas Dowell PCP - General Family Practice 02/20/14 Septic Cleaner Relationship Specialty Start Date End Date Cas Dowell PCP - General Family Practice 02/20/14 Septic Cleaner Relationship Specialty Start Date End Date Grayson Cas Guzman PCP - General Family Practice 02/20/14 Septic Cleaner Relationship Specialty Start Date End Date GraysonCas PCP - General Family Practice 02/20/14 Septic Cleaner Relationship Specialty Start Date End Date GraysonCas PCP - General Family Practice 02/20/14 Septic Cleaner Relationship Specialty Start Date End Date NadrajCas PCP - General Family Practice 02/20/14 Septic Cleaner Relationship Specialty Start Date End Date GabrielaCas almonte PCP - General Family Practice 02/20/14 Septic Cleaner Relationship Specialty Start Date End Date GraysonCas PCP - General Family Practice 02/20/14 Sai Perez MD [address] [place] [address] Primary Staff Physician Cardiology 07/21/21 Septic Cleaner Relationship Specialty Start Date End Date GabrielaCas almonte PCP - General Family Practice 02/20/14 Sai Perez MD [address] [place] [address] Primary Staff Physician Cardiology 07/21/21 Septic Cleaner Relationship Specialty Start Date End Date GabrielaCas almonte PCP - General Family Practice 02/20/14 Sai Perez MD [address] [place] [address] Primary Staff Physician Cardiology 07/21/21 Septic Cleaner Relationship Specialty Start Date End Date Cas Dowell PCP - General Family Practice 02/20/14 Septic Cleaner Relationship Specialty Start Date End Date Cas Dowell PCP - General Family Practice 02/20/14 Sai Perez MD [address] [place] [address] Primary Staff Physician Cardiology 07/21/21 Septic Cleaner Relationship Specialty Start Date End Date Cas Dowell PCP - General Family Practice 02/20/14 Sai Perez MD [address] [place] [address] Primary Staff Physician Cardiology 07/21/21 Septic Cleaner Relationship Specialty Start Date End Date Cas Dowell PCP - General Family Practice 02/20/14 Sai Perez MD [address] [place] [address] Primary Staff Physician Cardiology 07/21/21 Rubens Tim [address] [facility] [place], [place] [address] Referring AUDIO VIDEO TECHNICIAN 08/05/21 Septic Cleaner Relationship Specialty Start Date End Date Cas Dowell PCP - General [facility] Practice 02/20/14 Sai Perez MD [address] [place] [address] Primary Staff Physician Cardiology 07/21/[address], [facility]11 Referring AUDIO VIDEO TECHNICIAN 08/05/21 Septic Cleaner Relationship Specialty Start Date End Date Cas Dowell PCP - General Family Practice 02/20/14 Sai Perez MD [address] [place] [address] Primary Staff Physician Cardiology 07/21/21 Rubens Tim [facility] [place] [address] Referring AUDIO VIDEO TECHNICIAN 08/05/21 Septic Cleaner Relationship Specialty Start Date End Date Cas Dowell PCP - [facility] Practice 02/20/14 Sai Perez MD [address] [place] [address] Primary Staff Physician Cardiology 07/21/21 Rubens Tim [address] [place], [place] [address], [facility]11 Referring AUDIO VIDEO TECHNICIAN 08/05/21 Septic Cleaner Relationship Specialty Start Date End Date Cas Dowell PCP - General [facility] Practice 02/20/14 Sai Perez MD [address] [place] [address] Primary Staff Physician Cardiology 07/21/21 Rubens Tim [facility] [address] Referring AUDIO VIDEO TECHNICIAN 08/05/21 Septic Cleaner Relationship Specialty Start Date End Date Cas Dowell PCP - General Family Practice 02/20/14 Sai Perez MD [address] [place] [address] Primary Staff Physician Cardiology 07/21/21 Rubens Tim [address] [place] [address] Referring AUDIO VIDEO TECHNICIAN 08/05/21 Septic Cleaner Relationship Specialty Start Date End Date Cas Dowell PCP - General Family Practice 02/20/14 Sai Perez MD [address] [place] [address] Primary Staff Physician Cardiology 07/21/21 Rubens Tim, DO [address] [place], [facility]11 Referring AUDIO VIDEO TECHNICIAN 08/05/21 Septic Cleaner Relationship Specialty Start Date End Date Cas Dowell PCP - General Family Practice 02/20/14 Sai Perez MD [address] [place] [address] Primary Staff Physician Cardiology 07/21/21 Rubens Tim, DO [address] [place] [address] Referring AUDIO VIDEO TECHNICIAN 08/05/21 Septic Cleaner Relationship Specialty Start Date End Date Cas Dowell PCP - General Family Practice 02/20/14 Sai Perez MD [address] [place] [address] Primary Staff Physician Cardiology 07/21/21 Rubens Tim, DO [address] [place] [address] Referring AUDIO VIDEO TECHNICIAN 08/05/21 Septic Cleaner Relationship Specialty Start Date End Date Cas Dowell PCP - General Family Practice 02/20/14 Sai Perez MD [address] [place] [address] Primary Staff Physician Cardiology 07/21/21 Rubens Tim, DO [address] [place] [address] Referring AUDIO VIDEO TECHNICIAN 08/05/21 Septic Cleaner Relationship Specialty Start Date End Date Cas Dowell PCP - General Family Practice 02/20/14 Sai Perez MD [address] [place] [address] Primary Staff Physician Cardiology 07/21/21 Rubens Tim, DO [address] [place] [address] Referring AUDIO VIDEO TECHNICIAN 08/05/21 Septic Cleaner Relationship Specialty Start Date End Date Cas Dowell MD PCP - General 09/04/11 Septic Cleaner Relationship Specialty Start Date End Date Cas Dowell PCP - General Family Practice 02/20/14 Sai Perez MD [address] [place] [address] Primary Staff Physician Cardiology 07/21/21 Rubens Tim, DO [address] [place] [address] Referring AUDIO VIDEO TECHNICIAN 08/05/21 Septic Cleaner Relationship Specialty Start Date End Date Cas Dowell PCP - General Family Practice 02/20/14 Sai Perez MD [address] [place] [address] Primary Staff Physician Cardiology 07/21/21 Rubens Tim, DO [address] [place] [address] Referring AUDIO VIDEO TECHNICIAN 08/05/21 Septic Cleaner Relationship Specialty Start Date End Date Cas Dowell PCP - [facility] Practice 02/20/14 Sai Perez MD [address] [place] [address] Primary Staff Physician Cardiology 07/21/21 Rubens Tim, DO [address] [place] [address] Referring AUDIO VIDEO TECHNICIAN 08/05/21 Septic Cleaner Relationship Specialty Start Date End Date Cas Dowell PCP - General Family Practice 02/20/14 Sai Perez MD [address] [place] [address] Primary Staff Physician Cardiology 07/21/21 Rubens Tim, DO [address] [place], [place] [address] Referring AUDIO VIDEO TECHNICIAN 08/05/21 Septic Cleaner Relationship Specialty Start Date End Date Cas Dowell PCP - General Family Practice 02/20/14 Sai Perez MD [address] [place] [address] Primary Staff Physician Cardiology 07/21/21 Rubens Tim, DO [address] [place] [address] Referring AUDIO VIDEO TECHNICIAN 08/05/21 Septic Cleaner Relationship Specialty Start Date End Date Cas Dowell PCP - General [facility] Practice 02/20/14 Sai Perez MD [address] [place] [address] Primary Staff Physician Cardiology 07/21/21 Rubens Tim, DO [address] [place], [facility]11 Referring AUDIO VIDEO TECHNICIAN 08/05/21 Septic Cleaner Relationship Specialty Start Date End Date Cas Dowell PCP - General Family Practice 02/20/14 Sai Perez MD [address] [place] [address] Primary Staff Physician Cardiology 07/21/21 Rubens Tim, DO [address] [place], [facility]11 Referring AUDIO VIDEO TECHNICIAN 08/05/21 Septic Cleaner Relationship Specialty Start Date End Date Cas Dowell PCP - General Family Practice 02/20/14 Sai Perez MD [address] [place] [address] Primary Staff Physician Cardiology 07/21/21 Rubens Tim, DO [address] [place], [place] [id number] Referring AUDIO VIDEO TECHNICIAN 08/05/21 Septic Cleaner Relationship Specialty Start Date End Date Cas Dowell PCP - General Family Practice 02/20/14 Sai Perez MD [address] [place] [address] Primary Staff Physician Cardiology 07/21/21 Rubens Tim, DO [address] [facility] [place] [address] Referring AUDIO VIDEO TECHNICIAN 08/05/21 Septic Cleaner Relationship Specialty Start Date End Date Cas Dowell PCP - General Family Practice 02/20/14 Sai Perez MD [address] [place] [address] Primary Staff Physician Cardiology 07/21/21 Rubens Tim, DO [address] [place] [address] Referring AUDIO VIDEO TECHNICIAN 08/05/21 Septic Cleaner Relationship Specialty Start Date End Date Cas Dowell PCP - General Family Practice 02/20/14 Sai Perez MD [address] [place] [address] Primary Staff Physician Cardiology 07/21/21 Rubens Tim, DO [address] [place] [address] Referring AUDIO VIDEO TECHNICIAN 08/05/21 Septic Cleaner Relationship Specialty Start Date End Date Cas Dowell PCP - General Family Practice 02/20/14 Sai Perez MD [address] [place] [address] Primary Staff Physician Cardiology 07/21/21 Rubens Tim, DO [address] [place] [address] Referring AUDIO VIDEO TECHNICIAN 08/05/21 Septic Cleaner Relationship Specialty Start Date End Date Cas Dowell PCP - General Family Medicine 02/20/14 Sai Perez MD [address] [place] [address] Primary Staff Physician Cardiology 07/21/21 Rubens Tim, DO [address] [place], [facility]11 Referring AUDIO VIDEO TECHNICIAN 08/05/21 Septic Cleaner Relationship Specialty Start Date End Date Csa Dowell PCP - General Family Medicine 02/20/14 Sai Perez MD [address] [place] [address] Primary Staff Physician Cardiology 07/21/21 Rubens Tim, DO [address] [place], [facility]11 Referring AUDIO VIDEO TECHNICIAN 08/05/21 Septic Cleaner Relationship Specialty Start Date End Date Cas Dowell PCP - General Family Medicine 02/20/14 Sai Perez MD [address] [place] [address] Primary Staff Physician Cardiology 07/21/21 Rubens Tim, DO [address] [place] [address] Referring AUDIO VIDEO TECHNICIAN 08/05/21 Septic Cleaner Relationship Specialty Start Date End Date Cas Dowell PCP - General Family Medicine 02/20/14 Sai Perez MD [address] [place] [address] Primary Staff Physician Cardiology 07/21/21 Rubens Tim, DO [address] [place] [address] Referring AUDIO VIDEO TECHNICIAN 08/05/21 Septic Cleaner Relationship Specialty Start Date End Date Cas Dowell PCP - General Family Medicine 02/20/14 Sai Perez MD [address] [place] [address] Primary Staff Physician Cardiology 07/21/21 Rubens Tim, DO [address] [place] [address] Referring AUDIO VIDEO TECHNICIAN 08/05/21 Septic Cleaner Relationship Specialty Start Date End Date Cas Dowell PCP - General Family Medicine 02/20/14 Sai Perez MD [address] [place] [address] Primary Staff Physician Cardiology 07/21/21 Rubens Tim, DO [address] [place] [address] Referring AUDIO VIDEO TECHNICIAN 08/05/21 Septic Cleaner Relationship Specialty Start Date End Date Cas Dowell PCP - General Family Medicine 02/20/14 Sai Perez MD [address] [place] [address] Primary Staff Physician Cardiology 07/21/21 Rubens Tim, DO [address] [place] [address] Referring AUDIO VIDEO TECHNICIAN 08/05/21 Septic Cleaner Relationship Specialty Start Date End Date Cas Dowell PCP - General Family Medicine 02/20/14 Sai Perez MD [address] [place] [address] Primary Staff Physician Cardiology 07/21/21 Rubens Tim, DO [address] [place], [place] [address] Referring AUDIO VIDEO TECHNICIAN 08/05/21 Septic Cleaner Relationship Specialty Start Date End Date Cas Dowell PCP - General Family Medicine 02/20/14 Sai Perez MD [address] [place] [address] Primary Staff Physician Cardiology 07/21/21 Rubens Tim, DO [address] [place] [address] Referring AUDIO VIDEO TECHNICIAN 08/05/21 Septic Cleaner Relationship Specialty Start Date End Date Cas Dowell PCP - General Family Medicine 02/20/14 Sai Perez MD [address] [place] [address] Primary Staff Physician Cardiology 07/21/21 Rubens Tim, DO [address] [place] [address] Referring AUDIO VIDEO TECHNICIAN 08/05/21 Septic Cleaner Relationship Specialty Start Date End Date Cas Dowell PCP - General Family Medicine 02/20/14 Sai Perez MD [address] [place] [address] Primary Staff Physician Cardiology 07/21/21 Rubens Tim, DO [address] [place] [address] Referring AUDIO VIDEO TECHNICIAN 08/05/21 Septic Cleaner Relationship Specialty Start Date End Date Cas Dowell PCP - General Family Medicine 02/20/14 Sai Perez MD [address] [place] [address] Primary Staff Physician Cardiology 07/21/21 Rubens Tim, DO [address] [place], [place] [address] Referring AUDIO VIDEO TECHNICIAN 08/05/21 Septic Cleaner Relationship Specialty Start Date End Date Cas Dowell PCP - General Family Medicine 02/20/14 Sai Perez MD [address] [place] [address] Primary Staff Physician Cardiology 07/21/21 Rubens Tim, DO [address] [place] [address] Referring AUDIO VIDEO TECHNICIAN 08/05/21 Septic Cleaner Relationship Specialty Start Date End Date Cas Dowell MD PCP - General 09/04/11 Septic Cleaner Relationship Specialty Start Date End Date Cas Dowell PCP - General Family Medicine 02/20/14 Sai Perez MD [address] [place] [address] Primary Staff Physician Cardiology 07/21/21 Rubens Tim, DO [address] [place] [address] Referring AUDIO VIDEO TECHNICIAN 08/05/21 Septic Cleaner Relationship Specialty Start Date End Date Cas Dowell PCP - General Family Medicine 02/20/14 Sai Perez MD [address] [place] [address] Primary Staff Physician Cardiology 07/21/21 Rubens Tim, DO [address] [place] [address] Referring AUDIO VIDEO TECHNICIAN 08/05/21 Septic Cleaner Relationship Specialty Start Date End Date Cas Dowell PCP - General Family Medicine 02/20/14 Sai Perez MD [address] [place] [address] Primary Staff Physician Cardiology 07/21/21 Rubens Tim, DO [address] [place] [address] Referring AUDIO VIDEO TECHNICIAN 08/05/21 Septic Cleaner Relationship Specialty Start Date End Date Cas Dowell PCP - General Family Medicine 02/20/14 Sai Perez MD [address] [place] [address] Primary Staff Physician Cardiology 07/21/21 Rubens Tim, DO [address] [place], [place] [address] Referring AUDIO VIDEO TECHNICIAN 08/05/21 Septic Cleaner Relationship Specialty Start Date End Date Cas Dowell PCP - General Family Medicine 02/20/14 Sai Perez MD [address] [place] [address] Primary Staff Physician Cardiology 07/21/21 Rubens Tim, DO [address] [place], [place] [address] Referring AUDIO VIDEO TECHNICIAN 08/05/21 Septic Cleaner Relationship Specialty Start Date End Date Cas Dowell PCP - General Family Medicine 02/20/14 Sai Perez MD [address] [place] [address] Primary Staff Physician Cardiology 07/21/21 Rubens Tim, DO [address] [place], [facility]11 Referring AUDIO VIDEO TECHNICIAN 08/05/21 Septic Cleaner Relationship Specialty Start Date End Date Cas Dowell PCP - General Family Medicine 02/20/14 Sai Perez MD [address] [place] [address] Primary Staff Physician Cardiology 07/21/21 Rubens Tim, DO [address] [place], [place] [address] Referring AUDIO VIDEO TECHNICIAN 08/05/21 Septic Cleaner Relationship Specialty Start Date End Date Cas Dowell PCP - General Family Medicine 02/20/14 Sai Perez MD [address] [place] [address] Primary Staff Physician Cardiology 07/21/21 Rubens Tim, DO [address] [place], [place] [address] Referring AUDIO VIDEO TECHNICIAN 08/05/21 Septic Cleaner Relationship Specialty Start Date End Date Cas Dowell PCP - General Family Medicine 02/20/14 Sai Perez MD [address] [place] [address] Primary Staff Physician Cardiology 07/21/21 Rubens Tim, DO [address] [place], [place] [address] Referring AUDIO VIDEO TECHNICIAN 08/05/21 Septic Cleaner Relationship Specialty Start Date End Date Cas Dowell PCP - General Family Medicine 02/20/14 Sai Perez MD [address] [place] [address] Primary Staff Physician Cardiology 07/21/21 Rubens Tim, DO [address] [place], [facility]38 Referring AUDIO VIDEO TECHNICIAN 08/05/21 Septic Cleaner Relationship Specialty Start Date End Date Cas Dowell MD PCP - General Family Medicine 12/06/22 Septic Cleaner Relationship Specialty Start Date End Date Cas Dowell PCP - General Family Medicine 02/20/14 Sai Perez MD [address] [place], [place] [address] Primary Staff Physician Cardiology 07/21/21 Rubens Tim DO [address] [facility] [place] [address] Referring Plastic Press Operator 08/05/21 Septic Cleaner Relationship Specialty Start Date End Date Cas Dowell PCP - General Family Medicine 02/20/14 Sai Perez MD [address] [place], [place] [address] Primary Staff Physician Cardiology 07/21/21 Rubens Tim DO [address] [facility] [place] [address] Referring Plastic Press Operator 08/05/21 Septic Cleaner Relationship Specialty Start Date End Date Cas Dowell MD [address] [place] [address] PCP - General Family Medicine 04/09/23 Septic Cleaner Relationship Specialty Start Date End Date Cas Dowell MD [address] [place] [address] PCP - General Family Medicine 04/09/23 Septic Cleaner Relationship Specialty Start Date End Date Cas Dowell MD [address] [place] [address] PCP - General Family Medicine 04/09/23 Septic Cleaner Relationship Specialty Start Date End Date Cas Dowell MD [address] [place] [address] PCP - General Family Medicine 04/09/23 Septic Cleaner Relationship Specialty Start Date End Date Cas Dowell MD [address] [place] [address] PCP - General Family Medicine 04/09/23 Septic Cleaner Relationship Specialty Start Date End Date Cas Dowell MD PCP - General 09/04/11 Septic Cleaner Relationship Specialty Start Date End Date Cas Dowell MD PCP - General 09/04/11 Septic Cleaner Relationship Specialty Start Date End Date Cas Dowell MD [address] [place] [address] PCP - General Family Medicine 04/09/23 Cas Dowell MD [address] [place] [address] PCP [facility] 11/06/23 Septic Cleaner Relationship Specialty Start Date End Date Cas Dowell MD [address] [place] [address] PCP - General Family Medicine 04/09/23 Cas Dowell MD [address] [place] [address] PCP - [employer] 06/06/23 Septic Cleaner Relationship Specialty Start Date End Date Cas Dowell MD [address] [place] [address] PCP - General [facility] 04/09/23 Cas Dowell MD [address] [place] [address] PCP - [employer] 06/06/23 Septic Cleaner Relationship Specialty Start Date End Date Cas Dowell MD [address] [place] [address] PCP - General Family [facility] 04/09/23 Cas Dowell MD [address] [place] [address] PCP - [employer] 06/06/23 Septic Cleaner Relationship Specialty Start Date End Date Cas Dowell MD [address] [place] [address] PCP - General [facility] 04/09/23 Cas Dowell MD [address] [place] [address] PCP - [employer] 06/06/23 Septic Cleaner Relationship Specialty Start Date End Date Cas Dowell MD [address] [place] [address] PCP - General Family Medicine 04/09/23 Cas Dowell MD [address] [place] [address] PCP - [employer] 06/06/23 Septic Cleaner Relationship Specialty Start Date End Date Cas Dowell MD [address] [place] [address] PCP - General Family Medicine 04/09/23 Cas Dowell MD [address] [place] [address] PCP - [employer] 11/06/23 Septic Cleaner Relationship Specialty Start Date End Date Cas Dowell MD [address] [place] [address] PCP - General Family Medicine 04/09/23 Cas Dowell MD [address] [place] [address] PCP - [employer] 11/06/23 Septic Cleaner Relationship Specialty Start Date End Date Cas Dowell MD [address] [place] [address] PCP - General Family Medicine 04/09/23 Cas Dowell MD [address] [place] [address] PCP - [employer] 11/06/23 Septic Cleaner Relationship Specialty Start Date End Date Cas Dowell MD [address] [place] [address] PCP - General Family Medicine 04/09/23 Cas Dowell MD [address] [place] [address] PCP - [employer] 11/06/23 Septic Cleaner Relationship Specialty Start Date End Date Cas Dowell MD PCP - General Family Medicine 11/18/20 Septic Cleaner Relationship Specialty Start Date End Date Cas Dowell MD [address] [place] [address] PCP - General Family Medicine 04/09/23 Cas Dowell MD [address] [place] [address] PCP - [employer] 11/06/23 Septic Cleaner Relationship Specialty Start Date End Date Cas Dowell MD [address] [place] [address] PCP - General Family Medicine 04/09/23 Cas Dowell MD [address] [place] [address] PCP - [employer] 11/06/23 Septic Cleaner Relationship Specialty Start Date End Date Cas Dowell MD [address] [place] [facility] [place] [address] PCP - General Family Medicine 11/18/20 Septic Cleaner Relationship Specialty Start Date End Date Cas Dowell MD [address] [place] [facility] [place] [place] [address] PCP - General Family Medicine 11/18/20 Septic Cleaner Relationship Specialty Start Date End Date Cas Dowell MD [address] [place] [facility] [place] [address] PCP - General Family Medicine 11/18/20 Septic Cleaner Relationship Specialty Start Date End Date Cas Dowell MD [address] [place] [facility] [place] [place] [address] PCP - General Family Medicine 11/18/20 Septic Cleaner Relationship Specialty Start Date End Date Cas Dowell MD [address] [place] [facility] [place] [address] PCP - General Family Medicine 11/18/20 Septic Cleaner Relationship Specialty Start Date End Date Cas Dowell MD PCP - General Family Medicine 11/18/20 Septic Cleaner Relationship Specialty Start Date End Date Cas Dowell MD PCP - General Family Medicine 11/18/20 Septic Cleaner Relationship Specialty Start Date End Date Cas Dowell MD PCP - General Family Medicine 11/18/20 Septic Cleaner Relationship Specialty Start Date End Date Cas Dowell MD PCP - General Family Medicine 11/18/20 Septic Cleaner Relationship Specialty Start Date End Date Cas Dowell MD PCP - General Family Medicine 11/18/20 Septic Cleaner Relationship Specialty Start Date End Date Cas Dowell MD [address] [place] [address] PCP - General Family Medicine 04/09/23 Cas Dowell MD [address] [place] [address] PCP - [employer] 11/06/23 Septic Cleaner Relationship Specialty Start Date End Date Cas Dowell MD [address] [place] [address] PCP - General Family Medicine 04/09/23 Cas Dowell MD [address] [place] [address] PCP - [employer] 11/06/23 Septic Cleaner Relationship Specialty Start Date End Date Cas Dowell MD PCP - General Family Medicine 11/18/20 Septic Cleaner Relationship Specialty Start Date End Date Cas Dowell MD [address] [place] [address] PCP - General Family Medicine 04/09/23 Septic Cleaner Relationship Specialty Start Date End Date Cas Dowell MD [address] [place] [address] PCP - General Family Medicine 04/09/23 Septic Cleaner Relationship Specialty Start Date End Date Cas Dowell MD [address] [place] [address] PCP - General Family Medicine 04/09/23 Septic Cleaner Relationship Specialty Start Date End Date Cas Dowell MD [address] [place] [address] PCP - General Family Medicine 04/09/23 Septic Cleaner Relationship Specialty Start Date End Date Cas Dowell MD [address] [place] [address] PCP - General Family Medicine 04/09/23 Septic Cleaner Relationship Specialty Start Date End Date Cas Dowell MD PCP - General Family Medicine 11/18/20 Septic Cleaner Relationship Specialty Start Date End Date Cas Dowell MD PCP - General 09/04/11 Team Status: Active Member Role Status Dates Cas Dowell MD Primary Care Provider Active Team Status: Inactive Member Role Status Dates Cas Dowell MD Primary Care Provider Active S tart: September 08, 2024 End: September 08, 2024 JULI Botello RN GRINDER OPERATOR-C Attending Provider Active Start: September 08 End: September 08, 2024 Team Status: Active Member Role Status Dates Cas Dowell MD Primary Care Provider Active S tart: September 08, 2024 JULI Botello RN GRINDER OPERATOR-C Attending Provider Active Start: September 08 Septic Cleaner Relationship Specialty Start Date End Date Cas Dowell MD PCP - General Family Medicine 11/18/20 Septic Cleaner Relationship Specialty Start Date End Date Cas Dowell MD [address] [place] [phone] PCP - General Family Medicine 04/09/23 Septic Cleaner Relationship Specialty Start Date End Date Cas Dowell MD [address] [place] [phone] PCP - General Family Medicine 04/09/23 Septic Cleaner Relationship Specialty Start Date End Date Cas Dowell MD [address] [place] [phone] PCP - General Family Medicine 04/09/23 Septic Cleaner Relationship Specialty Start Date End Date Cas Dowell MD PCP - General Family Medicine 02/20/14 Sai Perez MD [address] [place] [address] Primary Staff Physician Cardiology 07/21/21 Rubens Tim DO [address] [place] [address] [place] [address] Referring Plastic Press Operator 08/05/21 Septic Cleaner Relationship Specialty Start Date End Date Cas Dowell MD [address] [place] [phone] PCP - General Family Medicine 04/09/23 Septic Cleaner Relationship Specialty Start Date End Date Cas Dowell MD PCP - General Family Medicine 11/18/20 Source Comments (unrecognize d section and content) In the event this informatio n is protected by the Federal Confidentiality of Alcohol and Drug Abuse Patient Records regulations: The Federal rules restrict any use of the information to criminally investigate or prosecute any alcohol or drug abuse patient.[facility] the event this information is protected by the Federal Confidentiality of Alcohol and Drug Abuse Patient Records regulations: The Federal rules restrict any use of the information to criminally investigate or prosecute any alcohol or drug abuse patient.[facility]In the event this information is protected by the Federal Confidentiality of Alcohol and Drug Abuse Patient Records regulations: The Federal rules restrict any use of the information to criminally investigate or prosecute any alcohol or drug abuse patient.[facility] HospitalIn the event this information is protected by the Federal Confidentiality of Alcohol and Drug Abuse Patient Records regulations: The Federal rules restrict any use of the information to criminally investigate or prosecute any alcohol or drug abuse patient.[facility] HospitalIn the event this information is protected by the Federal Confidentiality of Alcohol and Drug Abuse Patient Records regulations: The Federal rules restrict any use of the information to criminally investigate or prosecute any alcohol or drug abuse patient.[facility] HospitalIn the event this information is protected by the Federal Confidentiality of Alcohol and Drug Abuse Patient Records regulations: The Federal rules restrict any use of the information to criminally investigate or prosecute any alcohol or drug abuse patient.[facility] HospitalIn the event this information is protected by the Federal Confidentiality of Alcohol and Drug Abuse Patient Records regulations: The Federal rules restrict any use of the information to criminally investigate or prosecute any alcohol or drug abuse patient.[facility] HospitalIn the event this information is protected by the Federal Confidentiality of Alcohol and Drug Abuse Patient Records regulations: The Federal rules restrict any use of the information to criminally investigate or prosecute any alcohol or drug abuse patient.[facility] HospitalIn the event this information is protected by the Federal Confidentiality of Alcohol and Drug Abuse Patient Records regulations: The Federal rules restrict any use of the information to criminally investigate or prosecute any alcohol or drug abuse patient.[facility] HospitalIn the event this information is protected by the Federal Confidentiality of Alcohol and Drug Abuse Patient Records regulations: The Federal rules restrict any use of the information to criminally investigate or prosecute any alcohol or drug abuse patient.[facility] HospitalIn the event this information is protected by the Federal Confidentiality of Alcohol and Drug Abuse Patient Records regulations: The Federal rules restrict any use of the information to criminally investigate or prosecute any alcohol or drug abuse patient.[facility] HospitalIn the event this information is protected by the Federal Confidentiality of Alcohol and Drug Abuse Patient Records regulations: The Federal rules restrict any use of the information to criminally investigate or prosecute any alcohol or drug abuse patient.[facility] HospitalIn the event this information is protected by the Federal Confidentiality of Alcohol and Drug Abuse Patient Records regulations: The Federal rules restrict any use of the information to criminally investigate or prosecute any alcohol or drug abuse patient.[facility] HospitalIn the event this information is protected by the Federal Confidentiality of Alcohol and Drug Abuse Patient Records regulations: The Federal rules restrict any use of the information to criminally investigate or prosecute any alcohol or drug abuse patient.[facility] HospitalIn the event this information is protected by the Federal Confidentiality of Alcohol and Drug Abuse Patient Records regulations: The Federal rules restrict any use of the information to criminally investigate or prosecute any alcohol or drug abuse patient.[facility] HospitalIn the event this information is protected by the Federal Confidentiality of Alcohol and Drug Abuse Patient Records regulations: The Federal rules restrict any use of the information to criminally investigate or prosecute any alcohol or drug abuse patient.[facility] HospitalIn the event this information is protected by the Federal Confidentiality of Alcohol and Drug Abuse Patient Records regulations: The Federal rules restrict any use of the information to criminally investigate or prosecute any alcohol or drug abuse patient.[facility] HospitalIn the event this information is protected by the Federal Confidentiality of Alcohol and Drug Abuse Patient Records regulations: The Federal rules restrict any use of the information to criminally investigate or prosecute any alcohol or drug abuse patient.[facility] HospitalIn the event this information is protected by the Federal Confidentiality of Alcohol and Drug Abuse Patient Records regulations: The Federal rules restrict any use of the information to criminally investigate or prosecute any alcohol or drug abuse patient.[facility] HospitalIn the event this information is protected by the Federal Confidentiality of Alcohol and Drug Abuse Patient Records regulations: The Federal rules restrict any use of the information to criminally investigate or prosecute any alcohol or drug abuse patient.[facility] HospitalIn the event this information is protected by the Federal Confidentiality of Alcohol and Drug Abuse Patient Records regulations: The Federal rules restrict any use of the information to criminally investigate or prosecute any alcohol or drug abuse patient.[facility] HospitalIn the event this information is protected by the Federal Confidentiality of Alcohol and Drug Abuse Patient Records regulations: The Federal rules restrict any use of the information to criminally investigate or prosecute any alcohol or drug abuse patient.[facility] HospitalIn the event this information is protected by the Federal Confidentiality of Alcohol and Drug Abuse Patient Records regulations: The Federal rules restrict any use of the information to criminally investigate or prosecute any alcohol or drug abuse patient.[facility] HospitalIn the event this information is protected by the Federal Confidentiality of Alcohol and Drug Abuse Patient Records regulations: The Federal rules restrict any use of the information to criminally investigate or prosecute any alcohol or drug abuse patient.[facility] HospitalIn the event this information is protected by the Federal Confidentiality of Alcohol and Drug Abuse Patient Records regulations: The Federal rules restrict any use of the information to criminally investigate or prosecute any alcohol or drug abuse patient.[facility] HospitalIn the event this information is protected by the Federal Confidentiality of Alcohol and Drug Abuse Patient Records regulations: The Federal rules restrict any use of the information to criminally investigate or prosecute any alcohol or drug abuse patient.[facility] HospitalIn the event this information is protected by the Federal Confidentiality of Alcohol and Drug Abuse Patient Records regulations: The Federal rules restrict any use of the information to criminally investigate or prosecute any alcohol or drug abuse patient.[facility] HospitalIn the event this information is protected by the Federal Confidentiality of Alcohol and Drug Abuse Patient Records regulations: The Federal rules restrict any use of the information to criminally investigate or prosecute any alcohol or drug abuse patient.[facility] HospitalIn the event this information is protected by the Federal Confidentiality of Alcohol and Drug Abuse Patient Records regulations: The Federal rules restrict any use of the information to criminally investigate or prosecute any alcohol or drug abuse patient.[facility] HospitalIn the event this information is protected by the Federal Confidentiality of Alcohol and Drug Abuse Patient Records regulations: The Federal rules restrict any use of the information to criminally investigate or prosecute any alcohol or drug abuse patient.[facility] HospitalIn the event this information is protected by the Federal Confidentiality of Alcohol and Drug Abuse Patient Records regulations: The Federal rules restrict any use of the information to criminally investigate or prosecute any alcohol or drug abuse patient.[facility] HospitalIn the event this information is protected by the Federal Confidentiality of Alcohol and Drug Abuse Patient Records regulations: The Federal rules restrict any use of the information to criminally investigate or prosecute any alcohol or drug abuse patient.[facility] HospitalIn the event this information is protected by the Federal Confidentiality of Alcohol and Drug Abuse Patient Records regulations: The Federal rules restrict any use of the information to criminally investigate or prosecute any alcohol or drug abuse patient.[facility] HospitalIn the event this information is protected by the Federal Confidentiality of Alcohol and Drug Abuse Patient Records regulations: The Federal rules restrict any use of the information to criminally investigate or prosecute any alcohol or drug abuse patient.[facility] HospitalIn the event this information is protected by the Federal Confidentiality of Alcohol and Drug Abuse Patient Records regulations: The Federal rules restrict any use of the information to criminally investigate or prosecute any alcohol or drug abuse patient.[facility] HospitalIn the event this information is protected by the Federal Confidentiality of Alcohol and Drug Abuse Patient Records regulations: The Federal rules restrict any use of the information to criminally investigate or prosecute any alcohol or drug abuse patient.[facility] HospitalIn the event this information is protected by the Federal Confidentiality of Alcohol and Drug Abuse Patient Records regulations: The Federal rules restrict any use of the information to criminally investigate or prosecute any alcohol or drug abuse patient.[facility] HospitalIn the event this information is protected by the Federal Confidentiality of Alcohol and Drug Abuse Patient Records regulations: The Federal rules restrict any use of the information to criminally investigate or prosecute any alcohol or drug abuse patient.[facility] HospitalIn the event this information is protected by the Federal Confidentiality of Alcohol and Drug Abuse Patient Records regulations: The Federal rules restrict any use of the information to criminally investigate or prosecute any alcohol or drug abuse patient.[facility] HospitalIn the event this information is protected by the Federal Confidentiality of Alcohol and Drug Abuse Patient Records regulations: The Federal rules restrict any use of the information to criminally investigate or prosecute any alcohol or drug abuse patient.[facility] HospitalIn the event this information is protected by the Federal Confidentiality of Alcohol and Drug Abuse Patient Records regulations: The Federal rules restrict any use of the information to criminally investigate or prosecute any alcohol or drug abuse patient.[facility] HospitalIn the event this information is protected by the Federal Confidentiality of Alcohol and Drug Abuse Patient Records regulations: The Federal rules restrict any use of the information to criminally investigate or prosecute any alcohol or drug abuse patient.[facility] HospitalIn the event this information is protected by the Federal Confidentiality of Alcohol and Drug Abuse Patient Records regulations: The Federal rules restrict any use of the information to criminally investigate or prosecute any alcohol or drug abuse patient.[facility] HospitalIn the event this information is protected by the Federal Confidentiality of Alcohol and Drug Abuse Patient Records regulations: The Federal rules restrict any use of the information to criminally investigate or prosecute any alcohol or drug abuse patient.[facility] HospitalIn the event this information is protected by the Federal Confidentiality of Alcohol and Drug Abuse Patient Records regulations: The Federal rules restrict any use of the information to criminally investigate or prosecute any alcohol or drug abuse patient.[facility] HospitalIn the event this information is protected by the Federal Confidentiality of Alcohol and Drug Abuse Patient Records regulations: The Federal rules restrict any use of the information to criminally investigate or prosecute any alcohol or drug abuse patient.[facility] HospitalIn the event this information is protected by the Federal Confidentiality of Alcohol and Drug Abuse Patient Records regulations: The Federal rules restrict any use of the information to criminally investigate or prosecute any alcohol or drug abuse patient.[facility] HospitalIn the event this information is protected by the Federal Confidentiality of Alcohol and Drug Abuse Patient Records regulations: The Federal rules restrict any use of the information to criminally investigate or prosecute any alcohol or drug abuse patient.[facility] HospitalIn the event this information is protected by the Federal Confidentiality of Alcohol and Drug Abuse Patient Records regulations: The Federal rules restrict any use of the information to criminally investigate or prosecute any alcohol or drug abuse patient.[facility] HospitalIn the event this information is protected by the Federal Confidentiality of Alcohol and Drug Abuse Patient Records regulations: The Federal rules restrict any use of the information to criminally investigate or prosecute any alcohol or drug abuse patient.[facility] HospitalIn the event this information is protected by the Federal Confidentiality of Alcohol and Drug Abuse Patient Records regulations: The Federal rules restrict any use of the information to criminally investigate or prosecute any alcohol or drug abuse patient.[facility] HospitalIn the event this information is protected by the Federal Confidentiality of Alcohol and Drug Abuse Patient Records regulations: The Federal rules restrict any use of the information to criminally investigate or prosecute any alcohol or drug abuse patient.[facility] HospitalIn the event this information is protected by the Federal Confidentiality of Alcohol and Drug Abuse Patient Records regulations: The Federal rules restrict any use of the information to criminally investigate or prosecute any alcohol or drug abuse patient.[facility] HospitalIn the event this information is protected by the Federal Confidentiality of Alcohol and Drug Abuse Patient Records regulations: The Federal rules restrict any use of the information to criminally investigate or prosecute any alcohol or drug abuse patient.[facility] HospitalIn the event this information is protected by the Federal Confidentiality of Alcohol and Drug Abuse Patient Records regulations: The Federal rules restrict any use of the information to criminally investigate or prosecute any alcohol or drug abuse patient.[facility] HospitalIn the event this information is protected by the Federal Confidentiality of Alcohol and Drug Abuse Patient Records regulations: The Federal rules restrict any use of the information to criminally investigate or prosecute any alcohol or drug abuse patient.[facility] HospitalIn the event this information is protected by the Federal Confidentiality of Alcohol and Drug Abuse Patient Records regulations: The Federal rules restrict any use of the information to criminally investigate or prosecute any alcohol or drug abuse patient.[facility] HospitalIn the event this information is protected by the Federal Confidentiality of Alcohol and Drug Abuse Patient Records regulations: The Federal rules restrict any use of the information to criminally investigate or prosecute any alcohol or drug abuse patient.[facility] HospitalIn the event this information is protected by the Federal Confidentiality of Alcohol and Drug Abuse Patient Records regulations: The Federal rules restrict any use of the information to criminally investigate or prosecute any alcohol or drug abuse patient.[facility] HospitalIn the event this information is protected by the Federal Confidentiality of Alcohol and Drug Abuse Patient Records regulations: The Federal rules restrict any use of the information to criminally investigate or prosecute any alcohol or drug abuse patient.[facility] HospitalIn the event this information is protected by the Federal Confidentiality of Alcohol and Drug Abuse Patient Records regulations: The Federal rules restrict any use of the information to criminally investigate or prosecute any alcohol or drug abuse patient.[facility] HospitalIn the event this information is protected by the Federal Confidentiality of Alcohol and Drug Abuse Patient Records regulations: The Federal rules restrict any use of the information to criminally investigate or prosecute any alcohol or drug abuse patient.[facility] HospitalIn the event this information is protected by the Federal Confidentiality of Alcohol and Drug Abuse Patient Records regulations: The Federal rules restrict any use of the information to criminally investigate or prosecute any alcohol or drug abuse patient.[facility] HospitalIn the event this information is protected by the Federal Confidentiality of Alcohol and Drug Abuse Patient Records regulations: The Federal rules restrict any use of the information to criminally investigate or prosecute any alcohol or drug abuse patient.[facility] HospitalIn the event this information is protected by the Federal Confidentiality of Alcohol and Drug Abuse Patient Records regulations: The Federal rules restrict any use of the information to criminally investigate or prosecute any alcohol or drug abuse patient.[facility] HospitalIn the event this information is protected by the Federal Confidentiality of Alcohol and Drug Abuse Patient Records regulations: The Federal rules restrict any use of the information to criminally investigate or prosecute any alcohol or drug abuse patient.[facility] HospitalIn the event this information is protected by the Federal Confidentiality of Alcohol and Drug Abuse Patient Records regulations: The Federal rules restrict any use of the information to criminally investigate or prosecute any alcohol or drug abuse patient.[facility] HospitalIn the event this information is protected by the Federal Confidentiality of Alcohol and Drug Abuse Patient Records regulations: The Federal rules restrict any use of the information to criminally investigate or prosecute any alcohol or drug abuse patient.[facility] HospitalIn the event this information is protected by the Federal Confidentiality of Alcohol and Drug Abuse Patient Records regulations: The Federal rules restrict any use of the information to criminally investigate or prosecute any alcohol or drug abuse patient.[facility] HospitalIn the event this information is protected by the Federal Confidentiality of Alcohol and Drug Abuse Patient Records regulations: The Federal rules restrict any use of the information to criminally investigate or prosecute any alcohol or drug abuse patient.[facility] HospitalIn the event this information is protected by the Federal Confidentiality of Alcohol and Drug Abuse Patient Records regulations: The Federal rules restrict any use of the information to criminally investigate or prosecute any alcohol or drug abuse patient.[facility] HospitalIn the event this information is protected by the Federal Confidentiality of Alcohol and Drug Abuse Patient Records regulations: The Federal rules restrict any use of the information to criminally investigate or prosecute any alcohol or drug abuse patient.[facility] HospitalIn the event this information is protected by the Federal Confidentiality of Alcohol and Drug Abuse Patient Records regulations: The Federal rules restrict any use of the information to criminally investigate or prosecute any alcohol or drug abuse patient.[facility] HospitalIn the event this information is protected by the Federal Confidentiality of Alcohol and Drug Abuse Patient Records regulations: The Federal rules restrict any use of the information to criminally investigate or prosecute any alcohol or drug abuse patient.[facility] HospitalIn the event this information is protected by the Federal Confidentiality of Alcohol and Drug Abuse Patient Records regulations: The Federal rules restrict any use of the information to criminally investigate or prosecute any alcohol or drug abuse patient.[facility] HospitalIn the event this information is protected by the Federal Confidentiality of Alcohol and Drug Abuse Patient Records regulations: The Federal rules restrict any use of the information to criminally investigate or prosecute any alcohol or drug abuse patient.[facility] HospitalIn the event this information is protected by the Federal Confidentiality of Alcohol and Drug Abuse Patient Records regulations: The Federal rules restrict any use of the information to criminally investigate or prosecute any alcohol or drug abuse patient.[facility] HospitalIn the event this information is protected by the Federal Confidentiality of Alcohol and Drug Abuse Patient Records regulations: The Federal rules restrict any use of the information to criminally investigate or prosecute any alcohol or drug abuse patient.[facility] HospitalIn the event this information is protected by the Federal Confidentiality of Alcohol and Drug Abuse Patient Records regulations: The Federal rules restrict any use of the information to criminally investigate or prosecute any alcohol or drug abuse patient.[facility] HospitalIn the event this information is protected by the Federal Confidentiality of Alcohol and Drug Abuse Patient Records regulations: The Federal rules restrict any use of the information to criminally investigate or prosecute any alcohol or drug abuse patient.[facility] HospitalIn the event this information is protected by the Federal Confidentiality of Alcohol and Drug Abuse Patient Records regulations: The Federal rules restrict any use of the information to criminally investigate or prosecute any alcohol or drug abuse patient.[facility] HospitalIn the event this information is protected by the Federal Confidentiality of Alcohol and Drug Abuse Patient Records regulations: The Federal rules restrict any use of the information to criminally investigate or prosecute any alcohol or drug abuse patient.[facility] HospitalIn the event this information is protected by the Federal Confidentiality of Alcohol and Drug Abuse Patient Records regulations: The Federal rules restrict any use of the information to criminally investigate or prosecute any alcohol or drug abuse patient.[facility] HospitalIn the event this information is protected by the Federal Confidentiality of Alcohol and Drug Abuse Patient Records regulations: The Federal rules restrict any use of the information to criminally investigate or prosecute any alcohol or drug abuse patient.[facility] HospitalIn the event this information is protected by the Federal Confidentiality of Alcohol and Drug Abuse Patient Records regulations: The Federal rules restrict any use of the information to criminally investigate or prosecute any alcohol or drug abuse patient.[facility] HospitalIn the event this information is protected by the Federal Confidentiality of Alcohol and Drug Abuse Patient Records regulations: The Federal rules restrict any use of the information to criminally investigate or prosecute any alcohol or drug abuse patient.[facility] HospitalIn the event this information is protected by the Federal Confidentiality of Alcohol and Drug Abuse Patient Records regulations: The Federal rules restrict any use of the information to criminally investigate or prosecute any alcohol or drug abuse patient.[facility] Goals (unrecognized section and content) Goals [...] BE BASED ON THE PRIMARY CLINICAL RECORDS. [facility]. provides no warranty or guarantee of the accuracy or completeness of information in this document.
--- OUTSIDE RECORDS SUMMARY | 2024-11-23 11:03 | XMS_ITS | Encounter Summary ---
Author Organization [facility] Address [address] [place] [address] Care Team Providers Care Roll Coverer Name Role Phone Cas Galicia MD Primary Care Provider [phone] Cas Galicia MD Unavailable Cas Galicia MD Unavailable Encounter Details Date Type Department Care Team (Late st Contact Info) Description 04/25/2023 Abstract [facility] [address] [place] [address] Cas Galicia MD [address] [place] [address] Social History Tobacco Use Types [...] often do you attend chur ch or jain services? Patient declined 04/08/2023 Do you belong [...] medical care, and heating? Somewhat hard 04/08/2023 [facility] of Occupat ional Health - Occupational Stress [...] prison (including now)? Patient declined 04/08/2023 Comments Unknown [...] EDT Office Visit [facility] [address] [place] [address] Rubens Tim DO [address] [place] [address] 07/08/2025 8:20 AM EDT Office Visit [facility] [address] [place] [address] Jodi Holden, PONCE [address] [place], [place] [id number] documented as of this encounter Visit Diagnoses Not on filedocumented in this encounter Care Teams Roll Coverer Relationship Specialty Start Date End Date Cas Galicia MD PCP - General Family Medicine 04/09/23 Cas Galicia MD [address] [place] [address] PCP - [place] [employer] 06/06/23 Cas Galicia MD [address] [place] [address] PCP - [place] [employer] 11/06/23 documented as of this encounter
--- OUTSIDE RECORDS SUMMARY | 2024-11-23 11:03 | XMS_ITS | Encounter Summary ---
Author Organization [facility] Address [address] [place] [address] Care Team Providers Care Carpenter Supervisor Name Role Phone Cas Galicia MD Primary Care Provider [phone] Encounter Details Date Type Department Care Team (Late st Contact Info) Description 08/07/2024 Orders Only [facility] [address] [place] [phone] Halima Morris MD [address] [place] [address] Social History Tobacco Use Types [...] on filedocumented in this encounter Care Teams Carpenter Supervisor Relationship Specialty Start Date End Date Cas Galicia MD [address] [place] [address] PCP - General 02/17/22 documented as of this encounter
--- OUTSIDE RECORDS SUMMARY | 2024-11-23 11:03 | XMS_ITS | Encounter Summary ---
Author Organization [facility] Address [address] [place] [address] Care Team Providers Care Hide Buyer Name Role Phone Cas Galicia MD Primary Care Provider [phone] Encounter Details Date Type Department Care Team (Late st Contact Info) Description 09/29/2024 Orders Only [facility] [address] [place] [address] Cas Galicia MD [address] [place] [address] Social History Tobacco Use Types Packs/Day Years [...] attend chur or gnosticist services? Patient declined 08/08/2024 Do [...] medical care, and heating? Somewhat hard 08/08/2024 [facility] Occupat ional Health [...] any time in the past 12 m [facility], were you homeless or [...] [facility] [place] [address] Rubens Tim DO [address] [facility] [place] [address] 07/08/2025 8:20 AM EDT Office Visit [facility] [address] [place] [address] Jodi Holden, PONCE [address] [place] [address] documented as of this encounter Procedures Procedure [...] Radio graphic Imaging us Cas Galicia MD IMFrancisca XR PROCEDURES Final Result * XR WRIST 2 VIEWS RIGHT (09/29/2024 2:00 PM EDT) Anatomical Region Laterality Modality Radiographic Naina ging us Cas MERRITT XR PROCEDURES Final Result * XR elbow 3+ views right (09/29/2024 1:59 PM EDT) Anatomical Region Laterality Modality Upper Extremities, Elbow Right Radiogr aphic Imaging us Cas MERRITT XR PROCEDURES Final Result documented in this encounter Visit Diagnoses Not on filedocumented in this encounter Care Teams Hide Buyer Relationship Specialty Start Date End Date Cas Galicia MD PCP - General Family Medicine 04/09/23 documented as of this encounter
--- OUTSIDE RECORDS SUMMARY | 2024-11-23 11:03 | XMS_ITS | Encounter Summary ---
Author Organization [facility] tem Address [id number] [address] [place] [address] Care Team Providers Care Aircraft Charter Dispatcher Name Role Phone Cas Galicia MD Primary Care Provider [phone] Reason for Visit * Reason Onset Date Comments Med Refill 09/22/2024 Encounter Details Date Type Department Care Team (Late st Contact Info) Description 09/22/2024 Refill [facility], [facility] Department of [facility] [address] [facility] [address] [place] [address] Alina Garcia CMA Social History Tobacco [...] Upcoming Encounters Date Type Department Care Team ([facility] st Contact Info) Description 11/24/2024 10:00 AM EDT [facility] Department of [facility] [address] [address] Akila Ballard MD [address] [address] 12/26/2024 10:30 AM EST [facility] Department of [facility] [address] [address] Stella Flowers, FIELD EXAMINER-SILK SCREEN PRINTING RACKER [address] [address] 01/05/2025 12:30 PM EST Clinical Support [facility] - ENT [address] [place] [address], [address] [place] [phone] [place] Trivedi [facility] CONSULTANT [address] [place] [address] [address] [place] [phone] 01/27/2025 4:15 PM EST Office Visit [facility] [address] [place] [address], [address] [place] [phone] [place] [address] [place] [address] [place] [address] documented as of this encounter Visit Diagnoses Not on filedocumented in this encounter Additional Health Concerns Assessment Noted Time PHQ-9 Depression Total Score: 0 01/05/20 3:26 PM EST documented as of this encounter Care Teams Aircraft Charter Dispatcher Relationship Specialty Start Date End Date Cas Galicia MD PCP - General Family Medicine 11/18/20 documented as of this encounter
--- OUTSIDE RECORDS SUMMARY | 2024-11-23 11:03 | XMS_ITS | Encounter Summary ---
Author Organization [facility] Address [address] [place] [address] Care Team Providers Care Rhythmic Gymnastics Coach Name Role Phone Cas Galicia MD Primary Care Provider [phone] Sai Perez MD Unavailable [phone] Rubens Tim DO Unavailable [phone] Source Comments In the event this information is protected by the Federal Confidentiality of Alcohol and Drug AbusePatient Records regulations: The Federal rules restrict any use of the information to criminally investigate or prosecute any alcohol or drug abuse patient.[facility] Encounter Details Date Type Department Care Team (Late st Contact Info) Description 08/26/2021 Patient Msg Neurology [address] [place] [address] Provider, Ccf Appointment Cancellation Social [...] Data from: https://www.neighborhoodatlas.medicine.[facility]/. Last address used for calculation [address] [...] Visit [facility] [address] [place] [address] [place] [address] 1 year follow up 09/29/2025 9:30 AM EDT Visit (SP) Office Hematology/Oncology [address] [place] [address] [place] [address] Shweta Masters APRN.[address] [place] [address] 1 year follow up documented as of this encounter Visit Diagnoses Not on filedocumented in this encounter Care Teams Rhythmic Gymnastics Coach Relationship Specialty Start Date End Date Cas Galicia MD PCP - General Family Medicine 02/20/14 Sai Perez MD [address] [place] [address] Primary Staff Physician Cardiology 07/21/21 Rubens Tim DO [address] [place] [address] [place] [address] Referring Service Or Work Dispatcher 08/05/21 documented as of this encounter
--- OUTSIDE RECORDS SUMMARY | 2024-11-23 11:03 | XMS_ITS | Encounter Summary ---
Author Organization [facility] Address [id number] [address] [place] [address] Care Team Providers Care Infantry Assaultman Name Role Phone Cas Galicia MD Primary Care Provider [phone] Encounter Details Date Type Department Care Team (Late st Contact Info) Description 12/05/2023 Orders Only [facility] [address] [facility] [address] [place] [phone] Akila Ball[place] MD 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 [address] [phone] Akila Ball[place] MD [address] [address] 12/26/2024 10:30 AM EST Office Visit [facility] Neurology, A Department of [facility] [address] [address] Stella Flowers APRN-DISMANTLER [address] [phone] 01/05/2025 12:30 PM EST Clinical Support [facility] - ENT [address] [place] [address], [address] [place] [phone] [place] Trivedi [facility] [address] [place] [address] [place] [address] 01/27/2025 4:15 PM EST Office Visit [facility] [address] [place] [address], [address] [place] [phone] Terri Smith MD [address] [place] [address] documented as of this encounter Procedures Procedure Name Priority Date/Time Associated Diagnosis Comments TSH Routine 11/26/2023 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 T4, FREE Routine 11/26/2023 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 documented in this encounter Results * T4, free (11/26/2023) 11/26/2023 Akila Ballard MD LAB BLOOD ORDERABLES Final Result Performing Organization Address [facility] de Phone Number SUNQUEST * TSH (11/26/2023) 11/26/2023 Akila Ballard MD LAB BLOOD ORDERABLES Final Result Performing Organization Address [facility] de Phone Number SUNQUEST documented in this encounter Visit Diagnoses Diagnosis 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
--- OUTSIDE RECORDS SUMMARY | 2024-11-23 11:03 | XMS_ITS | Clinical Summary ---
Author Organization [facility] Address [address] [place] [address] Care Team Providers Care Wire Coiler Name Role Phone Cas Galicia MD Primary Care Provider [phone] Sai Perez MD Unavailable [phone] Rubens Tim DO Unavailable [phone] Allergies Active Allergy Reactions Criticality Noted [...] 09/30/2024 rimegepant (NURTEC ODT) 75 mg disintegrating tabletIndications: Chronic migraine without aura, intractable, without status migrainosus Take 1 tablet by mouth once daily as needed. No more than 1 dose in 24 hours. 8 tablet 11 07/07/19 Active cetirizine (ZYRTEC) 10 mg tabletIndications: Angioedema, [...] once daily. 30 tablet 10/01/19 25 Active Active Problems Problem Noted [...] 9:30 AM EDT Visit (SP) Office Hematology/Oncology [address] [place] [address] [place] [address] Shweta Masters APRN.FIRST AID TEACHER POTS (postural orthostatic tachycardia syndrome) (Primary Dx); [...] PF (AFLURIA, FLUARIX, FLULAVAL, FLUZONE) 10/27/2019 influenza [id number] virus [facility] stockpi 11/20/2019 influenza vaccine, unspecified formulation 11/19,11/06/2019,10/27/2019 Family History Medical History Relation Comments Diabetes Father Heart disease Father at age 57 Hypertension Father Cardiomyopathy Mother at age 52 Diabetes Mother uncontrolled Heart Attack Mother First NC at age 51 Hypertension Mother Ischemic Heart [...] is lower risk 8 10/02/2022 Data from: https://www.neighborhoodatlas.medicine.[facility].edu/. Last address used for calculation [...] Description 09/29/2025 9:15 AM EDT Office Visit [facility] [address] [place] [address] 1 year follow up 09/29/2025 9:30 AM EDT Visit (SP) Office Hematology/Oncology [address] [address] Shweta Masters, LIO.FIRST AID TEACHER [address] [place] [address] 1 year follow up Health Maintenance Due [...] 3-dose SCDM series) 12/20/2010 Mammogram Screening 2023 Covid-19 Vaccine (1 - 2024-2 6 season) 2024 Influenza Vaccine (#1) 2024 0, 11/06/2019, 11/06/2019, Additional history exists Procedures Procedure Name Priority Date/Time Associated Diagnosis Comments COMPREHENSIVE METABOLIC PANEL Routine 09/30/2024 8:42 AM EDT Qualitative platelet disorder (HCC) CBC + DIFF Routine 09/30/2024 8:42 AM EDT Qualitative platelet disorder (HCC) from Last 3 Months Results * (ABNORMAL) COMPREHENSIVE METABOLIC PANEL (09/30/2024 8:42 AM EDT) Protein, Total 6.7 6.3 - 8.0 g/dL 09/30/2024 9:10 AM [facility] Albumin 4.5 3.9 - 4.9 g/dL 09/30/2024 9:10 AM [facility] Calcium, Total 9.7 8.5 - 10.2 mg/dL 09/30/2024 9:10 AM [facility] Bilirubin, Total 0.3 0.2 - 1.3 mg/dL 09/30/2024 9:10 AM [facility] Alkaline Phosphatase 74 34 - 123 U/L 09/30/2024 9:10 AM [facility] AST 10(L) 13 - 35 U/L 09/30/2024 9:10 AM [facility] ALT 15 7 - 38 U/L 09/30/2024 9:10 AM [facility] Glucose 145(H) 74 - 99 mg/dL 09/30/2024 9:10 AM [facility] Comment: The [place] Diabetes Association (ADA) provides guidance for cutoff [...] Standards of Medical Care in Diabetes 2016, [place] Diabetes Association. Diabetes Care. 2016.39(Suppl 1). BUN 19 7 - 21 mg/dL 09/30/2024 9:10 AM [facility] Creatinine 0.97(H) 0.58 - 0.96 mg/dL 09/30/2024 9:10 AM [facility] Sodium 139 136 - 144 mmol/L 09/30/2024 9:10 AM [facility] Potassium 3.6(L) 3.7 - 5.1 mmol/L 09/30/2024 9:10 AM EDT [facility] Chloride 104 98 - 107 mmol/L 09/30/2024 9:10 AM EDT [facility] CO2 25 22 - 30 mmol/L 09/30/2024 9:10 AM EDT [facility] Anion Gap 10 8 - 15 mmol/L 09/30/2024 9:10 AM EDT [facility] Estimated Glomerular Filtration Rate 76 >=60 mL/min/1. 73m 09/30/2024 9:10 AM EDT [facility] Comment:Estimated Glomerular Filtration Rate (eGFR) is [...] us Jayme Marinelli MD LABORATORY Final Result [facility] [address] [place] [address] * (ABNORMAL) COMPLETE BLOOD COUNT AND DIFFERENTIAL (09/30/2024 8:42 AM EDT) WBC 9.84 3.70 - 11.00 k/uL 09/30/2024 8:47 AM EDT [facility] RBC 4.75 3.90 - 5.20 m/uL 09/30/2024 8:47 AM EDT [facility] Hemoglobin 14.1 11.5 - 15.5 g/dL 09/30/2024 8:47 AM EDT [facility] Hematocrit 41.8 36.0 - 46.0 % 09/30/2024 8:47 AM EDT [facility] MCV 88.0 80.0 - 100.0 fL 09/30/2024 8:47 AM EDT [facility] MCH 29.7 26.0 - 34.0 pg 09/30/2024 8:47 AM EDT [facility] MCHC 33.7 30.5 - 36.0 g/dL 09/30/2024 8:47 AM EDT [facility] RDW-CV 11.9 11.5 - 15.0 % 09/30/2024 8:47 AM EDT [facility] Platelet Count 254 150 - 400 k/uL 09/30/2024 8:47 AM EDT [facility] MPV 9.8 9.0 - 12.7 fL 09/30/2024 8:47 AM EDT [facility] Neutrophils % 71.7 % 09/30/2024 8:47 AM EDT [facility] Abs Neut 7.06 1.45 - 7.50 k/uL 09/30/2024 8:47 AM EDT [facility] Lymphocytes % 22.2 % 09/30/2024 8:47 AM EDT [facility] Abs Lymph 2.18 1.00 - 4.00 k/uL 09/30/2024 8:47 AM EDT [facility] Monocytes % 3.5 % 09/30/2024 8:47 AM EDT [facility] Abs [place] 0.34 <0.87 k/uL 09/30/2024 8:47 AM EDT [facility] Eosinophils % 0.9 % 09/30/2024 8:47 AM EDT [facility] Abs Eosin 0.09 <0.46 k/uL 09/30/2024 8:47 AM EDT [facility] Basophils % 0.6 % 09/30/2024 8:47 AM EDT [facility] Abs Baso 0.06 <0.11 k/uL 09/30/2024 8:47 AM EDT [facility] Immature Granulocytes % 1.1 % 09/30/2024 8:47 AM EDT [facility] Abs Immature Gran 0.11(H) <0.10 k/uL 09/30/2024 8:47 AM EDT [facility] NRBC 0.0 /100 WBC 09/30/2024 8:47 AM EDT [facility] Absolute nRBC <0.01 <0.01 k/uL 09/30/2024 8:47 AM EDT [facility] Diff Type Auto 09/30/2024 8:47 AM EDT [facility] Blood BLOOD SPECIMEN / Unknown Venipuncture / Unknown 09/30/2024 8:42 AM EDT 09/30/2024 8:42 AM EDT Jayme Marinelli MD LABORATORY Final Result [facility] [address] [place] [address] from Last 3 Months Insurance [employer] PPO Care Teams Wire Coiler Relationship Specialty Start Date End Date Cas Galicia MD PCP - General Family Medicine 02/20/14 Sai Perez MD [address] [place] [address] Primary Staff Physician Cardiology 07/21/21 Rubens Tim DO [address] [facility] [place] [address] Referring Singer Songwriter 08/05/21
--- OUTSIDE RECORDS SUMMARY | 2024-11-23 11:03 | XMS_ITS | Encounter Summary ---
Author Organization [facility] Address [address] [place] [address] Care Team Providers Care Senior Project Coordinator Name Role Phone Cas Galicia MD Primary Care Provider [phone] Sai Perez MD Unavailable [phone] Rubens Tim DO Unavailable [phone] Source Comments In the event this information is protected by the Federal Confidentiality of Alcohol and Drug AbusePatient Records regulations: The Federal rules restrict any use of the information to criminally investigate or prosecute any alcohol or drug abuse patient.[facility] Encounter Details Date Type Department Care Team (Late st Contact Info) Description 08/31/2021 [facility] [address] [place] [address] Leno Bright MD [facility] [address] [place] [address] Nutrition Visits Social History Tobacco [...] N ot on file 08/15/2021 Data from: https://www.neighborhoodatlas.medicine.[facility]/. Last address used for calculation [...] Description 09/29/2025 9:15 AM EDT Office Visit [facility] [address] [place] [address] 1 year follow up 09/29/2025 9:30 AM EDT Visit (SP) Office Hematology/Oncology [address] [facility] [place] [address] Shweta Masters APRN.DISTRICT PLANT SUPERINTENDENT [address] [facility] [place] [address] 1 year follow up documented as of this encounter Visit Diagnoses Not on filedocumented in this encounter Care Teams Senior Project Coordinator Relationship Specialty Start Date End Date Cas Galicia MD PCP - General Family Medicine 02/20/14 Sai Perez MD [address] [facility] [place] [address] Primary Staff Physician Cardiology 07/21/21 Rubens Tim DO [address] [place] [address] [place] [address] Referring Energy Efficiency Specialist 08/05/21 documented as of this encounter
--- OUTSIDE RECORDS SUMMARY | 2024-11-23 11:03 | XMS_ITS | Encounter Summary ---
Author Organization [facility] Address [id number] [address] [place] [address] Care Team Providers Care Shellfish Processing Laborer Name Role Phone Cas Galicia MD Primary Care Provider [phone] Reason for Visit * Reason Onset Date Comments Med Refill 03/12/2024 Encounter Details Date Type Department Care Team (Late st Contact Info) Description 03/12/2024 Refill [facility] [address] [place] [address] Alina Garcia CMA Social History Tobacco Use [...] 10:00 AM EDT Office Visit [facility] Adult Endocrinology, A Department of [facility] [address] [address] Akila Ballard MD [address] [address] 12/26/2024 10:30 AM EST Office Visit [facility] Neurology, A Department of [facility] [address] [address] Stella Flowers, HYDRAULIC PLUMBER-WHEEL CLEANER [address] [address] 01/05/2025 12:30 PM EST Clinical Support [facility] - [address] [place] [address] [place] Trivedi [facility]-OTHER WOOD PROCESSING MACHINE OPERATOR [address] [place] [address] [address] [place] [address] 01/27/2025 4:15 PM EST Office Visit [facility] - ENT [address] [place] [address], [address] [place] [address] [place] [address] [place] [address] [place] [address] documented as of this encounter Visit Diagnoses Not on filedocumented in this encounter Additional Health Concerns Assessment Noted Time PHQ-9 Depression Total Score: 0 01/05/20 23 3:26 PM EST documented as of this encounter Care Teams Shellfish Processing Laborer Relationship Specialty Start Date End Date Cas Galicia MD PCP - General Family Medicine 11/18/20 documented as of this encounter
--- OUTSIDE RECORDS SUMMARY | 2024-11-23 11:03 | XMS_ITS | Encounter Summary ---
Author Organization [facility] Address [address] [place] [address] Care Team Providers Care Concrete Stone Finishing Supervisor Name Role Phone Cas Galicia MD Primary Care Provider [phone] Sai Perez MD Unavailable [phone] Rubens Tim DO Unavailable [phone] Source Comments In the event this information is protected by the Federal Confidentiality of Alcohol and Drug AbusePatient Records regulations: The Federal rules restrict any use of the information to criminally investigate or prosecute any alcohol or drug abuse patient.[facility] Encounter Details Date Type Department Care Team (Late st Contact Info) Description 10/17/2021 Get Medical Advice [facility] [address] [address] [place] [address] [facility] [address] [place] [address] Genetic testing Social History Tobacco [...] N ot on file 08/15/2021 Data from: https://www.neighborhoodatlas.medicine.[facility]/. Last address used for calculation [...] AM EDT Office Visit [facility] [address] [facility] [place] [address] 1 year follow up 09/29/2025 9:30 AM EDT Visit (SP) Office Hematology/Oncology [address] [place] [address] Shweta Masters APRN.LINING CLOSER [address] [place] [address] 1 year follow up documented as of this encounter Visit Diagnoses Not on filedocumented in this encounter Care Teams Concrete Stone Finishing Supervisor Relationship Specialty Start Date End Date Cas Galicia MD PCP - General Family Medicine 02/20/14 Sai Perez MD [address] [facility] [place] [place] [address] Primary Staff Physician Cardiology 07/21/21 Rubens Tim DO [address] [place], [place] [address]Reji [place] [address] Referring Database Modeler 08/05/21 documented as of this encounter
--- OUTSIDE RECORDS SUMMARY | 2024-11-23 11:03 | XMS_ITS | Encounter Summary ---
Author Organization [facility] Address [address] [place] [address] Care Team Providers Care Specialist Physician Name Role Phone Cas Galicia MD Primary Care Provider [phone] Sai Perez MD Unavailable [phone] Rubens Tim DO Unavailable Source Comments [...] [facility] [address] [place] [address] Provider, Ccf Referral to Wellness [...] Data from: https://www.neighborhoodatlas.medicine.[facility]/. Last address used for calculation [address] [...] Description 09/29/2025 9:15 AM EDT Office Visit [facility] [address] [place] [address] [place] [address] 1 year follow up 09/29/2025 9:30 AM EDT Visit (SP) Office Hematology/Oncology [address] [place] [address] [place] [address] Shweta Masters APRN.[address] [place] [address] 1 year follow up documented as of this encounter Visit Diagnoses Not on filedocumented in this encounter Care Teams Specialist Physician Relationship Specialty Start Date End Date Cas Galicia MD PCP - General Family Medicine 02/20/14 Sai Perez MD [address] [facility] [place] [address] Primary Staff Physician Cardiology 07/21/21 Rubens Tim DO [address] [place] [address] [place] [address] Referring Head Sugar Reprocess Operator 08/05/21 documented as of this encounter
--- OUTSIDE RECORDS SUMMARY | 2024-11-23 11:03 | XMS_ITS | Encounter Summary ---
Author Organization [facility] Address [address] [place] [address] Care Team Providers Care Oracle Solutions Architect Name Role Phone Cas Galicia MD Primary Care Provider [phone] Sai Perez MD Unavailable [phone] Rubens Tim DO Unavailable [phone] Source Comments In the event this information is protected by the Federal Confidentiality of Alcohol and Drug AbusePatient Records regulations: The Federal rules restrict any use of the information to criminally investigate or prosecute any alcohol or drug abuse patient.[facility] Encounter Details Date Type Department Care Team (Late st Contact Info) Description 08/18/2021 Get Medical Advice Neurology [address] [id number] Bhargavi Ramesh PA-C [address] [place] [address] Emgality Social History Tobacco Use [...] on file 08/15/2021 Data from: https://www.neighborhoodatlas.medicine.[facility]/. Last address used for [...] Description 09/29/2025 9:15 AM EDT Office Visit [facility] [address] [facility] [place] [address] 1 year follow up 09/29/2025 9:30 AM EDT Visit (SP) Office Hematology/Oncology [address] [facility] [place] [address] Shweta Masters APRN.FACSIMILE MACHINE OPERATOR [address] [place] [address] 1 year follow up documented as of this encounter Visit Diagnoses Not on filedocumented in this encounter Care Teams Oracle Solutions Architect Relationship Specialty Start Date End Date Cas Galicia MD PCP - General Family Medicine 02/20/14 Sai Perez MD [address] [facility] [place] [address] Primary Staff Physician Cardiology 07/21/21 Rubens Tim DO [address] [place] [address] [place] [address] Referring Almond Sorter 08/05/21 documented as of this encounter
--- OUTSIDE RECORDS SUMMARY | 2024-11-23 11:03 | XMS_ITS | Encounter Summary ---
Author Organization [facility] Address [address] [place] [address] Care Team Providers Care Health Coach Name Role Phone Cas Galicia MD Primary Care Provider Sai Perez MD Unavailable [phone] Rubens Tim DO Unavailable [phone] Source Comments In the event this information is protected by the Federal Confidentiality of Alcohol and Drug AbusePatient Records regulations: The Federal rules restrict any use of the information to criminally investigate or prosecute any alcohol or drug abuse patient.[facility] Encounter Details Date Type Department Care Team (Late st Contact Info) Description 07/29/2021 Patient Msg Neurological [facility] [address] [id number] Judith Valdes PSYD [address] [place] [address] Scheduling Social History Tobacco Use [...] on file 07/01/2021 Data from: https://www.neighborhoodatlas.medicine.[facility]/. Last address used for calculation [address] [...] 09/29/2025 9:15 AM EDT Office Visit [facility] [address] [place] [address] 1 year follow up 09/29/2025 9:30 AM EDT Visit (SP) Office Hematology/Oncology [address] [facility] [address] Shweta Masters APRN.MATURITY CHECKER [address] [facility] [place] [address] 1 year follow up documented as of this encounter Visit Diagnoses Not on filedocumented in this encounter Care Teams Health Coach Relationship Specialty Start Date End Date Cas Galicia MD PCP - General Family Medicine 02/20/14 Sai Perez MD [address] [place] [address] Primary Staff Physician Cardiology 07/21/21 Rubens Tim DO [address] [place] [address] [place] [address] Referring Relay Adjuster 08/05/21 documented as of this encounter
--- OUTSIDE RECORDS SUMMARY | 2024-11-23 11:03 | XMS_ITS | Encounter Summary ---
Author Organization [facility] Address [address] [place] [address] Care Team Providers Care Blocker And Polisher Gold Wheel Name Role Phone Cas Galicia MD Primary Care Provider [phone] Cas Galicia MD Primary Care Provider [phone] Cas Galicia MD Unavailable Cas Galicia MD Unavailable Encounter Details Date Type Department Care Team (Late Contact Info) Description 01/25/2023 Orders Only [facility] [address] [place] [address] Cas Galicia MD [address] [place] [address] Social History Tobacco Use Types Packs/Day Years [...] EDT Office Visit [facility] [address] [place] [phone] Rubens Tim DO [address] [place] [address] 07/08/2025 8:20 AM EDT Office Visit [facility] [address] [place] [address] Jodi Holden, PONCE [address] [place] [address] [place] [address] documented as of this encounter Visit Diagnoses Not on filedocumented in this encounter Care Teams Blocker And Polisher Gold Wheel Relationship Specialty Start Date End Date Cas Galicia MD PCP - General Family Medicine 12/06/22 04/08/23 Cas Galicia MD PCP - General Family Medicine 04/09/23 Cas Galicia MD [address] [place] [address] PCP - [employer] 06/06/23 Cas Galicia MD [address] [place] [address] PCP - [employer] Commercial 11/06/23 documented as of this encounter
--- OUTSIDE RECORDS SUMMARY | 2024-11-23 11:03 | XMS_ITS | Encounter Summary ---
Author Organization [facility] Address [address] [place] [address] Care Team Providers Care Lead Software Test Engineer Name Role Phone Cas Galicia MD Primary Care Provider [phone] Sai Perez MD Unavailable [phone] Rubens Tim DO Unavailable [phone] Source Comments In the event this information is protected by the Federal Confidentiality of Alcohol and Drug AbusePatient Records regulations: The Federal rules restrict any use of the information to criminally investigate or prosecute any alcohol or drug abuse patient.[facility] Encounter Details Date Type Department Care Team (Late st Contact Info) Description 08/30/2021 Patient Msg [facility] [address] [place] [address] Provider, Ccf Referral to Wellness [...] on file 08/15/2021 Data from: https://www.neighborhoodatlas.medicine.[facility]/. Last address used for calculation [address] [...] 09/29/2025 9:15 AM EDT Office Visit [facility] [address] [place] [address] [place] [address] 1 year follow up 09/29/2025 9:30 AM EDT Visit (SP) Office Hematology/Oncology [address] [facility] [place] [address] Shweta Masters APRN.PHP MYSQL WEB DEVELOPER [address] [facility] [address] [place] [address] 1 year follow up documented as of this encounter Visit Diagnoses Not on filedocumented in this encounter Care Teams Lead Software Test Engineer Relationship Specialty Start Date End Date Cas Galicia MD PCP - General Family Medicine 02/20/14 Sai Perez MD [address] [place] [address] Primary Staff Physician Cardiology 07/21/21 Rubens Tim DO [address] [place] [address] [place] [address] Referring Digital Advertising Specialist 08/05/21 documented as of this encounter
--- OUTSIDE RECORDS SUMMARY | 2024-11-23 11:03 | XMS_ITS | Encounter Summary ---
Author Organization [facility] Address [address] [place] [address] Care Team Providers Care Retirement Administrator Name Role Phone Cas Galicia MD Primary Care Provider [phone] Sai Perez MD Unavailable [phone] Rubens Tim DO Unavailable [phone] Source Comments In the event this information is protected by the Federal Confidentiality of Alcohol and Drug AbusePatient Records regulations: The Federal rules restrict any use of the information to criminally investigate or prosecute any alcohol or drug abuse patient.[facility] Encounter Details Date Type Department Care Team (Late st Contact Info) Description 11/07/2021 Get Medical Advice Neurology [address] [phone] Bhargavi Ramesh PA-C [address] [place] [address] [facility] medicine Social History Tobacco Use Types Packs/Day [...] N ot on file 08/15/2021 Data from: https://www.neighborhoodatlas.medicine.[facility].edu/. Last address used for calculation [address] [...] Description 09/29/2025 9:15 AM EDT Office Visit [facility] [address] [place] [address] 1 year follow up 09/29/2025 9:30 AM EDT Visit (SP) Office Hematology/Oncology [address] [facility] [place] [address] Shweta Masters APRN.WOOL CLEANER [address] [place] [address] 1 year follow up documented as of this encounter Visit Diagnoses Not on filedocumented in this encounter Care Teams Retirement Administrator Relationship Specialty Start Date End Date Cas Galicia MD PCP - General Family Medicine 02/20/14 Sai Perez MD [address] [place] [address] Primary Staff Physician Cardiology 07/21/21 Rubens Tim DO [address] [place] [address] [place] [address] Referring Game Farm Helper 08/05/21 documented as of this encounter
--- OUTSIDE RECORDS SUMMARY | 2024-11-23 11:03 | XMS_ITS | Encounter Summary ---
Author Organization [facility] Address [address] [place] [address] Care Team Providers Care Hydroelectric Mechanic Name Role Phone Cas Galicia MD Primary Care Provider [phone] Reason for Visit * Reason Comments Med Change Request Encounter Details Date Type Department Care Team (Late st Contact Info) Description 04/11/2023 Refill [facility] [address] [place] [address] Macrina Wad[place], MECHANICAL TEST TECHNICIAN [address] [place] [address] Autonomic dysfunction Social History Tobacco [...] dysfunction documented in this encounter Care Teams Hydroelectric Mechanic Relationship Specialty Start Date End Date Cas Galicia MD [address] [place] [address] PCP - General 02/17/22 documented as of this encounter
--- OUTSIDE RECORDS SUMMARY | 2024-11-23 11:03 | XMS_ITS | Encounter Summary ---
Author Organization [facility] Address [address] [place] [address] Care Team Providers Care Layer Out Plate Glass Name Role Phone Cas Galicia MD Primary Care Provider [phone] Sai Perez MD Unavailable [phone] Rubens Tim DO Unavailable [phone] Source Comments In the event this information is protected by the Federal Confidentiality of Alcohol and Drug AbusePatient Records regulations: The Federal rules restrict any use of the information to criminally investigate or prosecute any alcohol or drug abuse patient.[facility] Encounter Details Date Type Department Care Team (Late st Contact Info) Description 08/02/2021 Get Medical Advice [facility] [place] [address] [place] [address] Dayanna Sotomayor, [facility] [address] [place] [address] Genetic testing Social History Tobacco [...] N ot on file 07/01/2021 Data from: https://www.neighborhoodatlas.medicine.[facility]/. Last address used for calculation [...] Description 09/29/2025 9:15 AM EDT Office Visit [facility] [address] [place] [place] [address] 1 year follow up 09/29/2025 9:30 AM EDT Visit (SP) Office Hematology/Oncology [address] [facility] [place] [address] Shweta Masters APRN.RADIOLOGY INTERVENTIONAL PHYSICIAN [address] [facility] [place] [address] 1 year follow up documented as of this encounter Visit Diagnoses Not on filedocumented in this encounter Care Teams Layer Out Plate Glass Relationship Specialty Start Date End Date Cas Galicia MD PCP - General Family Medicine 02/20/14 Sai Perez MD [address] [place] [address] Primary Staff Physician Cardiology 07/21/21 Rubens Tim DO [address] [place], [place] [address]Reji [place] [address] Referring Commercial Lines Assistant 08/05/21 documented as of this encounter
--- OUTSIDE RECORDS SUMMARY | 2024-11-23 11:03 | XMS_ITS | Encounter Summary ---
Author Organization [facility] Address [address] [place] [address] Care Team Providers Care Director Of First Impressions Name Role Phone Cas Galicia MD Primary Care Provider [phone] Sai Perez MD Unavailable [phone] Rubens Tim DO Unavailable [phone] Source Comments In the event this information is protected by the Federal Confidentiality of Alcohol and Drug AbusePatient Records regulations: The Federal rules restrict any use of the information to criminally investigate or prosecute any alcohol or drug abuse patient.[facility] Encounter Details Date Type Department Care Team (Late st Contact Info) Description 08/24/2021 Patient Msg [facility] [address] [place] [address] Provider, Ccf REFERRAL-WELLNESS CONSULT Social [...] file 08/15/2021 Data from: https://www.neighborhoodatlas.medicine.[facility]/. Last address used for calculation [...] Assessment Author No 02/23/2014 2:04 PM Ang Paeg MA * Because of a physical, mental, [...] Description 09/29/2025 9:15 AM EDT Office Visit [facility] [address] [place] [address] 1 year follow up 09/29/2025 9:30 AM EDT Visit (SP) Office Hematology/Oncology [address] [place] [address] [place] [address] Shweta Masters APRN.[facility] [address] [facility] [place] [address] 1 year follow up documented as of this encounter Visit Diagnoses Not on filedocumented in this encounter Care Teams Director Of First Impressions Relationship Specialty Start Date End Date Cas Galicia MD PCP - General Family Medicine 02/20/14 Sai Perez MD [address] [facility] [place] [address] Primary Staff Physician Cardiology 07/21/21 Rubens Tim DO [address] [place] [address] [place] [address] Referring Medical Device Sales Consultant 08/05/21 documented as of this encounter
--- OUTSIDE RECORDS SUMMARY | 2024-11-23 11:03 | XMS_ITS | Encounter Summary ---
Author Organization [facility] Address [id number] [address] [place] [address] Care Team Providers Care Business Continuity Strategy Director Name Role Phone Cas Galicia MD Primary Care Provider [phone] Reason for Visit * Reason Onset Date Comments Med Refill 03/12/2024 Encounter Details Date Type Department Care Team (Late st Contact Info) Description 03/12/2024 Refill [facility] [address] [place] [address] Alina Garcia CMA Social History Tobacco Use [...] Description 11/24/2024 10:00 AM EDT Office Visit [facility] Adult Endocrinology, A Department of [facility] [address] [address] Akila Ballard MD [address] [address] 12/26/2024 10:30 AM EST Office Visit [facility] Neurology, A Department of [facility] [address] [address] Stella Flowers, ASSISTANT COACH-PICKLING GRADER [address] [address] 01/05/2025 12:30 PM EST Clinical Support [facility] - [address] [place] [address] [place] Trivedi [facility]-SOLUTION DIRECTOR [address] [place] [address] [address] [place] [address] 01/27/2025 4:15 PM EST Office Visit [facility] - ENT [address] [place] [address], [address] [place] [address] [place] [address] [place] [address] [place] [address] documented as of this encounter Visit Diagnoses Not on filedocumented in this encounter Additional Health Concerns Assessment Noted Time PHQ-9 Depression Total Score: 0 01/05/20 23 3:26 PM EST documented as of this encounter Care Teams Business Continuity Strategy Director Relationship Specialty Start Date End Date Cas Galicia MD PCP - General Family Medicine 11/18/20 documented as of this encounter
--- OUTSIDE RECORDS SUMMARY | 2024-11-23 11:03 | XMS_ITS | Encounter Summary ---
Author Organization [facility] Address [address] [place] [address] Care Team Providers Care Flare Stitcher Name Role Phone Cas Galicia MD Primary Care Provider [phone] Encounter Details Date Type Department Care Team (Late st Contact Info) Description 02/21/2022 Lab Requisition [facility] [address] [place] [address] Pat Garrett NP Social History Tobacco Use [...] AM EST) Case Report Electron Microscopy Case: [id number] Authorizing Provider: Unknown Unknown Collected: 02/17/2022 0000 Ordering Location: [facility] Received: 02/21/2022 0655 Pathologist: Shree Aldana, PhD Cosigner: Ashley Marshall MD Specimen: Blood, Venous 02/22/2022 1:40 PM EST [facility] ([facility]) Final Diagnosis Sample was drawn on 02.17.22 and received on 02.21.22. This is too old for assessment. 02/22/2022 1:40 PM EST [facility] ([facility]) at 1429 EST Comment No charge has been applied to this sample. 02/22/2022 1:40 PM EST [facility]) Blood Venous blood specimen / Unknown 02/17/2022 02/21/2022 6:55 AM EST Pat Garrett CAR DROPPER LAB PATHOLOGY ORDERABLES Final R esult [facility] ([facility]) [address] [place], [place] [address] documented in this encounter Visit Diagnoses Not on filedocumented in this encounter Care Teams Flare Stitcher Relationship Specialty Start Date End Date Cas Galicia MD [address] [place] [address] PCP - General 02/17/22 documented as of this encounter
--- OUTSIDE RECORDS SUMMARY | 2024-11-23 11:04 | XMS_ITS | Clinical Summary ---
Author Organization [facility] Address [address], [address] [place] [address] Care Team Providers Care Window Caser Name Role Phone Cas Galicia MD Primary [...] Dr. Jorge London Penicillins Rash Low 09/04/2011 Shellfish Protein-Containing Drug Products Hives,Rash Low 01/08/2022 Sulfa Antibiotics 03/21/2015 [...] puffs into the lungs daily 1 each 04/18/19 Active Additional Information Patient not taking.Reported on 09/18/2024 liothyronine (CYTOMEL) 5 MCG tablet Take 1 tablet by mouth daily 09/06/19 25 Active sAXagliptin (ONGLYZA) 5 MG TABS tablet Take 1 tablet by mouth daily Active Active Problems Problem Noted Date Diagnosed Date RSV (respiratory syncytial virus infection) 07/2021 Adenovirus infection 01/10/2022 Acute asthma exacerbation 01/10/2022 Diabetes mellitus 01/09/2022 Asthma exacerbation attacks 01/08/2022 Abdominal pain, acute, right lower quadrant 12/07 Encounters Date Type Department Care Team Description 09/18/2024 10:45 AM EDT Office Visit [facility] Part of [place] [id number] Nabor Yancey, HR LEADER - PROPERTY MAINTENANCE TECHNICIAN Multiple environmental allergies (Primary Dx); Moderate persistent asthma without complication; Chronic sinusitis, unspecified location; KATELIN (obstructive sleep apnea) 09/18/2024 Abstract [facility]ULM Part of [address] [address] Nabor Yancey, HR LEADER - PROPERTY MAINTENANCE TECHNICIAN 09/18/2024 Abstract [facility] Part of [address] [address] Nabor Yancey APRN - PROPERTY MAINTENANCE TECHNICIAN 09/16/2024 Orders Only [facility] Part of [address] [address] Loraine Ponce MA Moderate persistent asthma without complication 09/16/2024 Abstract [facility] Part of [address] [address] David Mcclure MD 08/22/2024 10:21 AM EDT - 08/24/2024 11:59 PM EDT Hospital Encounter [facility] Non-Invasive Cardiology [address] [place] [id number] Edema, unspecified type; Palpitations with regular cardiac rhythm Discharge Disposition: Home or Self Care from Last 3 Months Immunizations Immunization Administration [...] Description 03/19/2025 9:45 AM EST Office Visit [facility] Part of [address] [address] David Mcclure MD [address] [place] [address] KATELIN; 6 mth follow up with [employer] Maintenance Due Date Last Done Comments Diabetic [...] test (Diabetic or Prediabetic) 01/09/2023 01/09/2022, 09/09/2011 GFR test (Diabetes, CKD 3-4, OR last GFR 15-59) 12/19/2023 12/18/2022, 01/30/2022, 01/09/2022, Additional history exists Breast cancer screen 2023 Flu vaccine (#1) 09/05/2024 11/20/2019, 02/2019, 10/27/2019 COVID-19 Vaccine ( - season) 2024 Cervical cancer screen Discontinued Pap smear Discontinued [...] Procedure Name Priority Date/Time Associated Diagnosis Comments BASIC METABOLIC PANEL STAT 12/18/2022 4:10 PM EST HEMOGLOBIN A1C Routine 01/09/2022 5:40 AM EST TECHNICAL SUPPORT MANAGER CYTOLOGY Routine 03/17/2013 10:13 AM EST from Last 3 Months or Most Recently Relevant to Health Maintenance Results * (ABNORMAL) Basic Metabolic Panel (12/18/2022 4:10 PM EST) Sodium 138 135 - 144 mmol/L 12/18/2022 4:10 PM [facility] Potassium 4.0 3.7 - 5.3 mmol/L 12/18/2022 4:10 PM [facility] Chloride 102 98 - 107 mmol/L 12/18/2022 4:10 PM [facility] CO2 26 20 - 31 mmol/L 12/18/2022 4:10 PM [facility] Anion Gap 10 9 - 17 mmol/L 12/18/2022 4:10 PM [facility] Glucose 97 70 - 99 mg/dL 12/18/2022 4:10 PM [facility] BUN 12 6 - 20 mg/dL 12/18/2022 4:10 PM [facility] Creatinine 1.0(H) 0.5 - 0.9 mg/dL 12/18/2022 4:10 PM [facility] Est, Glom Filt Rate >60 >60 mL/min/1.7 3m2 12/18/2022 4:10 PM EST [facility] Comment: These results are not [...] affects renal tubular secretion. BUN/Creatinine Ratio 12 - 20 12/18/2022 4:10 PM EST [facility] Calcium 9.5 8.6 - 10.4 mg/dL 12/18/2022 4:10 PM EST [facility] Blood BLOOD SPECIMEN / Unknown 12/18/2022 4:10 PM EST 12/18/2022 4:21 PM EST us Araseli Barrett MD CHEMISTRY ORDERABLES Final Resul t [facility] [address] [place] [address] * Hemoglobin A1c (01/09/2022 5:40 AM EST) Hemoglobin A1C 5.7 4.0 - 6.0 % 01/09/2022 5:40 AM EST [employer] Estimated Avg Glucose 117 mg/dL 01/09/2022 5:40 AM EST [employer] Comment: The ADA and AACC recommend providing the estimated average glucose result to permit better patient understanding of their HBA1c result. 01/09/2022 5:40 AM EST 01/09/2022 12:31 PM EST us Lore Rosado APRN - PROPERTY MAINTENANCE TECHNICIAN CHEMISTRY ORD ERABLES Final Result [facility] [address] [place] [address], [facility] [phone] [employer] [address] [place] [address], [facility] [phone] * TECHNICAL SUPPORT MANAGER Cytology (03/17/2013 10:13 AM EST) Cytology Report (NOTE) [id number] [facility] [employer] [facility] ANATOMIC PATHOLOGY [address] [place] [phone] GYNECOLOGIC CYTOLOGY REPORT Patient Name: VIJAYA TRAN MR#: [id number] Specimen #[id number] Final Diagnosis CERVICAL MATERIAL, (THIN PREP VIAL): Specimen Adequacy: Satisfactory for evaluation. - Paucity/absence of endocervical transformation zone component. Descriptive Diagnosis: Negative for intraepithelial lesion or malignancy. TANYA Luna(ASCP) Electronically Signed Out dg/03/21/2013 Source: 1: CERVICAL MATERIAL, (THIN PREP VIAL) 03/21/2013 12:00 AM EST [facility] 03/17/2013 10:1 3 AM EST 03/17/2013 10:13 AM EST Loraine Morgan DO PATHOLOGY/CYTOLOGY ORDERABLES Final Result [facility] [address] [phone] from Last 3 Months or Most Recently Relevant to Health Maintenance Insurance BCBS OUT OF STATE BCBS OUT OF STATE Advance Directives Documents on File Type Date Recorded Patient Writer Producer Expl anation ACP-Advance Directive 01/12/2022 2:29 PM ACP-Power of Signwriter 01/12/2022 2:29 PM * Full Code (Latest Code Status on File) Date Activated Date Inactivated Comments 01/08/2022 5:06 PM 01/11/2022 3:07 PM * Full Code Date Activated Date Inactivated Comments 12/30/2011 10:09 AM 12/31/2011 4:00 PM Healthcare Agents on File Name Relationship Healthcare Agent Relationship Communication Sean Tran Spouse Primary Decision Maker Care Teams Window Caser Relationship Specialty Start Date End Date Cas Galicia MD PCP - General 09/04/11
--- NOTE | 2024-11-23 11:15 | ED.GENADUL1 ---
HPI HPI - General Adult General Chief complaint: Headache Stated complaint: HEADACHE Time Seen by Provider: 11/23/24 11:15 Source: patient Mode of arrival: walk-in History of Present Illness HPI narrative: 38-year-old female presents for headache. She is complaining pain in the right side of her head not associated with any trauma. She has a history of migraine headaches and this is similar. The pain is moderate to severe. She took medications for prescribed to her but it did not help. No weakness or numbness. No stiff neck or fever or trauma. Related Data Home Medications ?Medication ?Instructions ?Recorded ?Confirmed azelastine 137 mcg-fluticasone 50 1 spray intranasal BID 01/23/23 01/23/23 mcg/spray nasal spray baclofen 10 mg tablet 10 mg PO DAILY 01/23/23 01/23/23 budesonide-formoterol HFA 160 2 puff inhalation BID 01/23/23 01/23/23 mcg-4.5 mcg/actuation aerosol inhaler (Symbicort) cholecalciferol (vitamin D3) 10 5,000 unit PO DAILY 01/23/23 01/23/23 mcg (400 unit) capsule duloxetine 60 mg capsule,delayed 60 mg PO DAILY 01/23/23 01/23/23 release (Cymbalta) epinephrine 0.3 mg/0.3 mL 0.3 mg IM Q10M PRN anaphylaxis 01/23/23 01/23/23 injection, auto-injector (EpiPen 2-Elder) fluticasone furoate 27.5 2 spray intranasal DAILY 01/23/23 01/23/23 mcg/actuation nasal spray,suspension (Flonase Sensimist) fluticasone propionate 50 1 spray intranasal DAILY PRN nasal 01/23/23 01/23/23 mcg/actuation nasal congestion spray,suspension (Flonase Allergy Relief) fremanezumab-vfrm 225 mg/1.5 mL 225 mg subcut .monthly 01/23/23 01/31/23 subcutaneous auto-injector (Ajovy) lamotrigine 150 mg tablet 150 mg PO DAILY 01/23/23 01/23/23 levothyroxine 100 mcg tablet 100 mcg PO DAILY 01/23/23 01/31/23 (Synthroid) linagliptin 5 mg tablet (Tradjenta) 5 mg PO DAILY 01/23/23 01/31/23 magnesium oxide 400 mg PO DAILY 01/23/23 01/23/23 montelukast 10 mg tablet 10 mg PO DAILY 01/23/23 01/23/23 (Singulair) pantoprazole 40 mg tablet,delayed 40 mg PO DAILY 01/23/23 01/23/23 release pyridostigmine bromide 180 mg 180 mg PO BID 01/23/23 01/23/23 tablet,extended release rimegepant 75 mg disintegrating 75 mg PO DAILY PRN migraine 01/23/23 01/23/23 tablet (Nurtec ODT) headache sertraline 200 mg capsule 100 mg PO DAILY 01/23/23 01/23/23 tamsulosin 0.4 mg capsule 0.4 mg PO DAILY PRN kidney stones 01/23/23 01/23/23 ubrogepant 50 mg tablet (Ubrelvy) 50 mg PO DAILY PRN migraine 01/23/23 01/23/23 headache vitamin B complex (B 1 tab PO DAILY 01/23/23 01/23/23 Complex-Vitamin B12 tablet) zonisamide 100 mg capsule 200 mg PO DAILY 01/23/23 01/23/23 (Zonegran) Previous Rx's ?Medication ?Instructions ?Recorded sucralfate 1 gram tablet 1 g PO Q6H 12 weeks #336 tabs 01/31/23 epinephrine 0.3 mg/0.3 mL 0.3 mg (0.3 mL) IM ONCE PRN 07/02/23 injection, auto-injector (EpiPen anaphylaxis #2 ea 2-Elder) prednisone 20 mg tablet 40 mg (2 x 20 mg) PO DAILY #6 tabs 07/02/23 epinephrine 0.3 mg/0.3 mL 0.3 mg (0.3 mL) IM Q10M PRN 09/22/23 injection, auto-injector (Auvi-Q) anaphylaxis #2 ea albuterol sulfate 90 mcg/actuation 2 inh inhalation Q4H PRN shortness 02/20/24 aerosol inhaler of breath or wheezing #8.5 grams adzawrwgnhlrkaa-pmloqhtngqfvucl-BY 10 ml PO Q6H PRN cold symptoms 02/20/24 2 mg-30 mg-10 mg/5 mL oral syrup #200 mL (Bromfed DM) dexamethasone 4 mg tablet 4 mg PO BID 5 days #10 tabs 02/20/24 ondansetron 4 mg disintegrating 4 mg PO Q6H PRN nausea and 02/20/24 tablet vomiting #12 tabs Allergies Allergy/AdvReac Type Severity Reaction Status Date / Time aspirin Allergy Hives Verified 02/20/24 14:11 cefaclor (From Ceclor) Allergy SOB Verified 02/20/24 14:11 clindamycin Allergy Rash Verified 02/20/24 14:11 ibuprofen (From Motrin) Allergy SOB Verified 02/20/24 14:11 iodine Allergy Unknown Verified 02/20/24 14:11 Latex, Natural Rubber Allergy Rash Verified 02/20/24 14:11 Macrolide Antibiotics Allergy Unknown Verified 02/20/24 14:11 penicillin G Allergy SOB Verified 02/20/24 14:11 povidone-iodine (From Allergy Rash Verified 02/20/24 14:11 Betadine) Sulfa (Sulfonamide Allergy Difficulty Verified 02/20/24 14:11 Antibiotics) Breathing valacyclovir (From Valtrex) Allergy Anaphylaxis Verified 02/20/24 14:11 scents/oils Allergy Severe Anaphylaxis Uncoded 02/20/24 14:11 Opioid HPI Opioid Management Most Recent Opioid Data: Last Pain Scale 7 Today, 12:46 Review of Systems ROS Narrative A ten point review of systems is negative except as noted above. 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 - Anaphylactic shock, unspecified, initial encounter (ICD-10) PTSD (post-traumatic stress disorder) ?F43.10 - Post-traumatic stress disorder, unspecified (ICD-10) Migraine ?G43.909 - Migraine, unspecified, not intractable, without status migrainosus (ICD-10) Autoimmune disorder ?D89.89 - Other specified disorders involving the immune mechanism, not elsewhere classified (ICD-10) COVID ?U07.1 - COVID-19 (ICD-10) History of gastric ulcer ?Z87.11 - Personal history of peptic ulcer disease (ICD-10) Lung infection ?J18.9 - Pneumonia, unspecified organism (ICD-10) History of electrocardiography ?Z92.89 - Personal history of other medical treatment (ICD-10) Anxiety and depression ?F41.9 - Anxiety disorder, unspecified (ICD-10) ?F32.A - Depression, unspecified (ICD-10) Arachnoid cyst ?G93.0 - Cerebral cysts (ICD-10) Asthma ?J45.909 - Unspecified asthma, uncomplicated (ICD-10) GERD (gastroesophageal reflux disease) ?K21.9 - Gastro-esophageal reflux disease without esophagitis (ICD-10) Hematuria ?R31.9 - Hematuria, unspecified (ICD-10) Hypothyroidism ?E03.9 - Hypothyroidism, unspecified (ICD-10) Insomnia ?G47.00 - Insomnia, unspecified (ICD-10) Kidney stone ?N20.0 - Calculus of kidney (ICD-10) Metabolic syndrome ?E88.810 - Metabolic syndrome (ICD-10) Myoclonic jerking ?G25.3 - Myoclonus (ICD-10) Obstructive sleep apnea ?G47.33 - Obstructive sleep apnea (adult) (pediatric) (ICD-10) Ovarian cyst ?N83.209 - Unspecified ovarian cyst, unspecified side (ICD-10) Paresthesia ?R20.2 - Paresthesia of skin (ICD-10) Peripheral edema ?R60.0 - Localized edema (ICD-10) Platelet dysfunction ?D69.1 - Qualitative platelet defects (ICD-10) Right inguinal hernia ?K40.90 - Unilateral inguinal hernia, without obstruction or gangrene, not specified as recurrent (ICD-10) Stress incontinence ?N39.3 - Stress incontinence (female) (male) (ICD-10) Thyroid nodule ?E04.1 - Nontoxic single thyroid nodule (ICD-10) Type 2 diabetes mellitus ?E11.9 - Type 2 diabetes mellitus without complications (ICD-10) Chronic urethral stricture Vitamin D deficiency ?E55.9 - Vitamin D deficiency, unspecified (ICD-10) Surgical History (Updated 01/23/23 @ 10:57 by Oliva Martin) History of endometrial ablation ?Z98.890 - Other specified postprocedural states (ICD-10) History of esophagogastroduodenoscopy (EGD) ?Z98.890 - Other specified postprocedural states (ICD-10) History of colonoscopy ?Z98.890 - Other specified postprocedural states (ICD-10) History of section ?Z98.891 - History of uterine scar from previous surgery (ICD-10) History of appendectomy ?Z90.49 - Acquired absence of other specified parts of digestive tract (ICD-10) History of cholecystectomy ?Z90.49 - Acquired absence of other specified parts of digestive tract (ICD-10) History of abdominal hysterectomy ?Z90.710 - Acquired absence of both cervix and uterus (ICD-10) History of cystoscopy ?Z98.890 - Other specified postprocedural states (ICD-10) History of laparoscopy ?Z98.890 - Other specified postprocedural states (ICD-10) History of nasal septoplasty ?Z98.890 - Other specified postprocedural states (ICD-10) History of tubal ligation ?Z98.51 - Tubal ligation status (ICD-10) History of tympanostomy ?Z98.890 - Other specified postprocedural states (ICD-10) Family History (Updated 01/23/23 @ 10:59 by Oliva Martin) Sister Family history of diabetes mellitus Father Heart disease Mother Heart disease Other Family history of cancer Social History Within the past year, how often did you have a drink containing alcohol: never Score interpretation: A score less than 3 is consistent with normal alcohol consumption. Smoking status: Never smoker Non-prescribed substance use: denies use Highest level of school completed/degree received: Associate degree: academic program Little interest or pleasure in doing things: not at all Feeling down, depressed, or hopeless: not at all Exam Narrative Exam Narrative: Nurses note and vital signs reviewed General:The patient appears in no acute distress. The lights are turned down Skin:Warm, dry, no pallor noted.There is no rash noted. Head:Normocephalic, atraumatic Eye: Normal conjunctiva, no drainage, EOMI. PERRL Ears, Nose, Mouth, and Throat: oral mucosa is moist. Nares patent. Cardiovascular:Regular Rate and Rhythm Respiratory:Patient is in no distress, no accessory muscle use, lungs are clear to auscultation, no wheezing, rales or rhonchi Back:non-tender GI: Soft and nontender Musculoskeletal: No joint swelling Neurological: Awake and alert; upper and lower extremity strength is symmetric and intact Psychiatric:Cooperative Constitutional Vital Signs, click to edit/add: Last Vital Signs Temp 98.2 F 11/23/24 10:48 Pulse 64 11/23/24 12:49 Resp 18 11/23/24 10:48 BP 136/73 11/23/24 12:49 Pulse Ox 100 11/23/24 12:49 O2 Del Method Room Air 11/23/24 10:48 Course Vital Signs Vital signs: Vital Signs Temperature 98.2 F 11/23/24 10:48 Pulse Rate 67 11/23/24 10:48 Respiratory Rate 18 11/23/24 10:48 Blood Pressure 144/86 H 11/23/24 10:48 Pulse Oximetry 97 11/23/24 10:48 Oxygen Delivery Method Room Air 11/23/24 10:48 Temperature 98.2 F 11/23/24 10:48 Pulse Rate 64 11/23/24 12:49 Respiratory Rate 18 11/23/24 10:48 Blood Pressure 136/73 11/23/24 12:49 Pulse Oximetry 100 11/23/24 12:49 Oxygen Delivery Method Room Air 11/23/24 10:48 Medical Decision Making MDM Narrative Medical decision making narrative: The patient was given IV Toradol, Phenergan, Solu-Medrol, and Zofran. She was feeling mildly improved and then she was given 0.5 mg of IV Dilaudid and feels much better now and is able to be discharged home. She was given a work note as well. Treatment diagnosis and follow-up were discussed with the patient. I have no clinical suspicion of acute intracranial pathology or meningitis. Differential Diagnosis Differential Diagnosis: Migraine headache, nonspecific headache Discharge Plan Discharge Chief Complaint: Headache Clinical Impression: Migraine Patient Disposition: Home, Self-Care Time of Disposition Decision: 13:05 Condition: Good Mode of Transportation: Private Vehicle Prescriptions / Home Meds: No Action prednisone 20 mg tablet 40 mg PO DAILY Qty: 6 0RF epinephrine [EpiPen 2-Elder] 0.3 mg/0.3 mL auto-injector 0.3 mg IM ONCE PRN (Reason: anaphylaxis) Qty: 2 0RF Rx Instructions: for 2 doses dexamethasone 4 mg tablet 4 mg PO BID 5 Days Qty: 10 0RF albuterol sulfate 90 mcg/actuation HFA aerosol inhaler 2 inh inhalation Q4H PRN (Reason: shortness of breath or wheezing) Qty: 8.5 0RF qzdqjmsbrnibewa-pyzhfdqhu-AG [Bromfed DM] 2-30-10 mg/5 mL syrup 10 ml PO Q6H PRN (Reason: cold symptoms) Qty: 200 0RF ondansetron 4 mg tablet,disintegrating 4 mg PO Q6H PRN (Reason: nausea and vomiting) Qty: 12 0RF zonisamide [Zonegran] 100 mg capsule 200 mg PO DAILY Ubrelvy 50 mg tablet 50 mg PO DAILY PRN (Reason: migraine headache) Tradjenta 5 mg tablet 5 mg PO DAILY tamsulosin 0.4 mg capsule 0.4 mg PO DAILY PRN (Reason: kidney stones) budesonide-formoterol [Symbicort] 160-4.5 mcg/actuation HFA aerosol inhaler 2 puff inhalation BID montelukast [Singulair] 10 mg tablet 10 mg PO DAILY sertraline 200 mg capsule 100 mg PO DAILY pantoprazole 40 mg tablet,delayed release (DR/EC) 40 mg PO DAILY Nurtec ODT 75 mg tablet,disintegrating 75 mg PO DAILY PRN (Reason: migraine headache) magnesium oxide 400 mg magnesium tablet 400 mg PO DAILY lamotrigine 150 mg tablet 150 mg PO DAILY fluticasone propionate [Flonase Allergy Relief] 50 mcg/actuation spray,suspension 1 spray intranasal DAILY PRN (Reason: nasal congestion) Rx Instructions: administer into each nostril epinephrine [EpiPen 2-Elder] 0.3 mg/0.3 mL auto-injector 0.3 mg IM Q10M PRN (Reason: anaphylaxis) Rx Instructions: for 2 doses duloxetine [Cymbalta] 60 mg capsule,delayed release(DR/EC) 60 mg PO DAILY baclofen 10 mg tablet 10 mg PO DAILY Patient Comments: takes 10-20mg at night Ajovy Autoinjector 225 mg/1.5 mL auto-injector 225 mg subcut .monthly cholecalciferol (vitamin D3) 10 mcg (400 unit) capsule 5,000 unit PO DAILY pyridostigmine bromide 180 mg tablet extended release 180 mg PO BID Rx Instructions: administer 6 hours apart levothyroxine [Synthroid] 100 mcg tablet 100 mcg PO DAILY azelastine-fluticasone 137-50 mcg/spray spray,non-aerosol 1 spray intranasal BID Patient Comments: both nostrils Rx Instructions: administer into each nostril vitamin B complex [B Complex-Vitamin B12] Tablet 1 tab PO DAILY Patient Comments: takes 1,000 mcg Flonase Sensimist 27.5 mcg/actuation spray,suspension 2 spray intranasal DAILY Rx Instructions: into each nostril sucralfate 1 gram tablet 1 g PO Q6H 84 Days Qty: 336 3RF epinephrine [Auvi-Q] 0.3 mg/0.3 mL auto-injector 0.3 mg IM Q10M PRN (Reason: anaphylaxis) Qty: 2 0RF Rx Instructions: for 2 doses Print Language: Lithuanian Instructions: Migraine Headache (ED) Referrals: Cas Galicia MD [Primary Care Provider, Family Practice] - 1 week
[2024-11-23] MEDS: 0.9 % SODIUM CHLORIDE 1,000 ML 1000 ML IV (11:35)
[2024-11-23] MEDS: DIPHENHYDRAMINE HCL 50 MG/ML VIAL 25 MG IVP (11:36)
[2024-11-23] MEDS: METHYLPREDNISOLONE SOD SUCC PF 125 MG/2 ML VIAL IVP (11:36)
[2024-11-23] MEDS: KETOROLAC TROMETHAMINE 30 MG/ML VIAL IVP (11:36)
[2024-11-23] MEDS: HYDROMORPHONE HCL 0.5 MG/0.5 ML SYRINGE IV (12:46)
[2024-11-23 12:49] VITALS: BP 136/73; PULSE 64; O2SAT 100
== END 2024-11-23 13:17 | disposition home or self-care (01) ==
PROVIDERS: Emergency Provider Emergency Medicine; PCP Family Medicine
DX: G43.909 Migraine, unspecified, not intractable, without status migrainosus (principal)
CPT/HCPCS: 96374; 96375; 99284; J1171; J1200; J1885; J2405; J2919

== ENCOUNTER 2024-12-01 11:55 | Outpatient (OUT) | payer BC, SELFPAY ==
--- OUTSIDE RECORDS SUMMARY | 2024-11-24 10:00 | XMS_ITS | Encounter Summary ---
Author Organization [facility] tem Address [id number] [address] [place] [address] Care Team Providers Care Manager Disaster Recovery Name Role Phone Cas Galicia MD Primary Care Provider [phone] Reason for Visit * ReasonCommentsFollow-upThy f/u Encounter Details DateTypeDepartmentCare Team (Latest Contact Info)Lookaodjnkq59/20/2025 10:00 AM EDTOffice Visit [facility] Adult [facility]ology, A Department of [facility] [address] [phone] Akila Ballard MD 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) Social History Tobacco UseTypesPacks/DayYears UsedDateSmoking Tobacco: NeverSmokeless Tobacco: NeverAlcohol UseStandard Drinks/WeekCommentsNot Currently0 (1 standard drink = 0.6 oz pure alcohol)PHQ-2AnswerDate RecordedTotal Ggwoo939/30/2023Childcare AnswerDate OsjhrgefOgwfzxbwbFupztao04/12/2019EmploymentAnswerDate Recorded EqlkbjrbuoXlulxjc81/12/2019Hunger ScreeningAnswerDate RecordedWithin the past 12 months we worried whether our food would run out before we got money to buy more.Never True11/22/2023Within the past 12 months the food we bought just didn't last and we didn't have money to get more.Never True4Purpose - LifeAnswerDate RecordedPurpose and direction in zinyLkomwzd80/11/2021 CommentsNoSex and Gender InformationValueDate RecordedSex Assigned at Pndlhd1705/14/2021 2:48 PM EDTLegal AutJghooa66/06/2015 12:02 PM EDTGender CsonfarsFwruls23/09/2022 2:48 PM EDTSexual BuxvpakduyuZbrzpclr88/09/2022 2:48 PM EDTdocumented as of this encounter Last Filed Vital Signs Vital SignReadingTime TakenCommentsBlood Zninfkjz734/7511/24/2024 10:12 AM EDT Tjegl046411/24/2024 10:12 AM EDTTemperature--Respiratory Uqlb9710 10:12 AM EDTOxygen Saturation--Inhaled Oxygen Concentration--Bakamx772.2 kg (234 lb 3.2 oz)11/24/2024 10:12 AM WTELxodvl442.6 cm (5' 4 )11/24/2024 10:12 AM EDTBody Mass Index40.210 10:12 AM EDTdocumented in this encounter Progress Notes * Akila Ballard MD - 11/24/2024 10:00 AM EDT REASON FOR VISIT: Vijaya Del Angel is seen in follow-up today for Hypothyroidism. HPI: Patient last seen in clinic on 11/22/23. She is struggling with her weight-she isn't eating much. She has gained 12#. She notes excessive cold intolerance and dry patches of skin on her hands. Her nails are brittle and breaking. She is sleepy-she is sleeping better. She takes compounded estrogen/progesterone/DHEA cream at night. She notes she has struggled with depression/irritability-her Zoloftdose was recently increased. She is following a gluten free diet, so eating healthier. She was positive for celiac antibodies. She feels sick if eating gluten(rash, diarrhea, abdominal pain). She is walking 3 miles/day with her puppy. She is very active. She has diabetes and KATELIN. She notes her insurance isn't covering Ozempic. She is taking Onglyza. Last HgA1c was 5.9%. Currently taking Synthroid (MIKE) 100 mcg 6.5 tabs/week & liothyronine 5mcg daily, on an empty stomach, first thing in the morning, without other medications. Thyroid ultrasound 01/16/19: Heterogenous thyroid, questionable hypoechoic nodule 8x5x3 mm on the right. Thyroid ultrasound dated May 10, 2023: Thyroid is small with a slightly heterogeneous echotexture.No nodules are identified. Right lobe measures 3.1 x 1.1 x 0.5 cm. Left lobe measures 3.0 x 0.9 x 0.9 cm. LABS: Labs from August 11, 2024: TSH 0.432, free T4 0.82, hemoglobin A1c 5.9% Labs from September 30, 2024: Hemoglobin 14.1, hematocrit 41.8, BUN 19, creatinine 0.97, sodium 139, potassium 3.6, glucose 145 08/22/23: TSH 1.5, TT4-8, fT3 2.42, fT4 0.84 10/06/22: TSH 4.255, fT3 2.48 06/05/22: TSH 1.41, fT4 0.89 04/07/22: TSH 0.356, free T4 1.29 02/17/22: TSH 0.08, free T4 1.34 TSH Date Value Ref Range Status 02/05/2024 0.44 (L) 0.49 - 4.67 uIU/mL Final 08/18/2021 0.70 0.49 - 4.67 uIU/mL Final 04/22/2020 1.18 0.49 - 4.67 uIU/mL Final T4, free Date Value Ref Range Status 02/05/2024 0.75 0.61 - 1.60 ng/dL Final 08/18/2021 0.79 0.61 - 1.60 ng/dL Final 04/22/2020 0.92 0.61 - 1.60 ng/dL Final T3, free Date Value Ref Range Status 02/05/2024 2.70 2.50 - 3.90 pg/mL Final 03/13/2019 3.51 2.50 - 3.90 pg/mL Final * reviewed recent labs with patient ROS: 12 point ROS completed, negative unless noted in HPI CURRENT MEDICATIONS Current Outpatient Medications: albuterol (PROVENTIL HFA;VENTOLIN HFA) 90 mcg/actuation inhaler, as needed. (Patient not taking: Reported on 11/24/2024), Disp: , Rfl: baclofen (LIORESAL) 20 mg tablet, Take 0.5-1 tablets (10-20 mg total) by mouth nightly., Disp: 90 tablet, Rfl: 1 cholecalciferol, vitamin D3, (VITAMIN D3 ORAL), Take [...] Rfl: EPINEPHrine (EPIPEN) 0.3 mg/0.3 mL auto-injector, , Disp: , Rfl: fluticasone (VERAMYST) 27.5 mcg/actuation nasal spray, Administer 2 sprays into each nostril once daily. (Patient not taking: Reported on 11/24/2024), Disp: , Rfl: fremanezumab-vfrm (AJOVY 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) 225 mg/1.5 mL, Inject 1.5 mL (225 mg total) under the skin every 28 days., Disp: 4.5 mL, Rfl: 3 ketorolac (TORADOL) 10 mg tablet, Take 1 tablet (10 mg total) by mouth every 6 (six) hours as needed for pain. (Patient not taking: Reported on 11/24/2024), Disp: 20 tablet, Rfl: 0 lamoTRIgine (LaMICtal) 150 mg tablet, Take 1 tablet (150 mg total) by mouth once daily at bedtime.,Disp: , Rfl: levocetirizine (XYZAL) 5 mg tablet, Take 1 tablet (5 mg total) by mouth every evening., Disp: , Rfl: liothyronine (CYTOMEL) 5 MCG tablet, TAKE 1 TABLET (5 MCG TOTAL) BY MOUTH IN THE MORNING., Disp: 90tablet, Rfl: 2 magnesium gluconate (MAGONATE) 500 mg tablet tablet, Take 27 mg by mouth in the morning and 27 mg before bedtime. 600 mg., Disp: , Rfl: montelukast (SINGULAIR) 10 mg tablet, Take 1 tablet (10 mg total) by mouth in the morning., Disp: ,Rfl: ondansetron ODT (ZOFRAN ODT) 4 mg disintegrating tablet, , Disp: , Rfl: pantoprazole (PROTONIX) 40 mg EC tablet, Take by mouth in the morning., Disp: , Rfl: potassium chloride (K-TAB,KLOR-CON) 10 MEQ CR tablet, Take 1 tablet (10 mEq total) by mouth in the morning., Disp: , Rfl: pyridostigmine (MESTINON) 60 mg tablet, Take 1 tablet (60 mg total) by mouth 3 (three) times a day., Disp: , Rfl: sAXagliptin (ONGLYZA) 5 mg tablet, Take 1 tablet (5 mg total) by mouth in the morning., Disp: , Rfl: sertraline (ZOLOFT) 100 mg tablet, Take 1 tablet (100 mg total) by mouth in the morning., Disp: , Rfl: SYNTHROID 100 mcg tablet, TAKE 1 TABLET (100 MCG TOTAL) BY MOUTH IN THE MORNING, Disp: 90 tablet, Rfl: 3 UBRELVY 100 mg tablet, Take 100 mg by mouth once as needed (migraine) for up to 1 dose., Disp: 16 tablet, Rfl: 12 zonisamide (ZONEGRAN) 100 mg capsule, Take 2 capsules (200 mg total) by mouth in the evening., Disp: 180 capsule, Rfl: 1 PAST MEDICAL HISTORY: Past Medical History: Diagnosis Date Allergic 1991 Allergic rhinitis 1990 Anxiety Asthma Back pain 1995 Bradycardia Chest pain Clotting disorder 1983 COVID Depression Diabetes mellitus ([facility]) Diabetes mellitus type 2, controlled ([facility]) Eczema 2006 Elevated troponin Fatty liver GERD [...] VITALS Wt Readings from Last 3 Encounters: 11/24/24 106.2 kg (234 lb 3.2 oz) 10/28/24 104 kg (229 lb 3.2 oz) 01/02/24 100.7 kg (222 lb) Body mass index is 40.2 kg/m??. Vitals: 11/24/24 1012 BP: 118/75 BP Site: Right Arm BP Postition: Sitting BP CUFF SIZE: L (13-17 inches) Pulse: 67 Resp: 17 Weight: 106.2 kg (234 lb 3.2 oz) Height: 162.6 cm (5' 4 ) PHYSICAL EXAM: Physical Exam Vitals reviewed. Constitutional: General: She is not in acute distress. Appearance: She is well-developed and well-groomed. HENT: Head: Normocephalic and atraumatic. Eyes: Extraocular Movements: Extraocular movements intact. Conjunctiva/sclera: Conjunctivae normal. Neck: Thyroid: No thyroid mass, thyromegaly or thyroid tenderness. Trachea: Trachea normal. Cardiovascular: Rate and Rhythm: Normal rate and regular rhythm. Pulses: Normal pulses. Heart sounds: Normal heart sounds. Pulmonary: Effort: Pulmonary effort is normal. Breath sounds: Normal breath sounds. Musculoskeletal: General: No tenderness. Normal range of motion. Cervical back: Normal range of motion and neck supple. Skin: General: Skin is warm and dry. Neurological: General: No focal deficit present. Mental Status: She is alert and oriented to person, place, and time. Gait: Gait is intact. Deep Tendon Reflexes: Reflexes are normal and symmetric. Psychiatric: Mood and Affect: Mood normal. Speech: Speech normal. Thought Content: Thought content normal. ASSESSMENT/PLAN: Patient is clinically hypopthyroid-symptoms worse in the past few months. Check thyroid labs now and adjust Synthroid and liothyronine as needed. Continue brand-name Synthroid. 1. 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 - T4, free; Future - TSH; Future - T3, free; Future We did discuss that if her thyroid levels are normal, would consider reaching out to pulmonology for GLP 1 therapy for her sleep apnea RETURN TO CLINIC: 1 year documented in this encounter Plan of Treatment DateTypeDepartmentCare Team (Latest Contact Info)Rnupmwzruzy11/21/2025 10:30 AM ESTOffice Visit [facility], [facility] Department of [facility] [address] [phone] Stella Flowers, TELEPATHIST-WAREHOUSE DISTRIBUTION MANAGER [address] [phone] 01/05/2025 12:[address] [facility] [address] [place] [address], [address] [place] [phone] Argentina Trivedi, CCC-OLIVE PITTER [address] [place] [address] [address] [place] [phone] 01/27/2025 4:[address] [facility] [address] [place] [address], [address] [place] [phone] Terri Smith MD [address] [facility] [address] [place] [phone] 11/24/2025 10:00 AM EDTOffice Visit [facility] Adult Endocrinology, A Department of [facility] [address] [phone] Akila Ballard MD [address] [address] documented as of this encounter Results * T3, free (11/24/2024 11:00 AM EDT)ComponentValueRef RangeTest MethodAnalysis TimePerformed AtPathologist SignatureFREE T32.652.50 - 3.90 pg/mL11/24/2024 1:55 PM [facility] LABORATORYSpecimen (Source)Anatomical Location / LateralityCollection Method / VolumeCollection TimeReceived Time BloodVenous blood / UnknownVenipuncture / Xyazfyz4011/24/2024 11:00 AM EDT 11/24/2024 11:00 AM EDT Narrative Authorizing ProviderResult TypeResult StatusAkila Ballard MDLAB BLOOD ORDERABLESFinal ResultPerforming OrganizationAddressCity/State/ZIP CodePhone Number [facility] [address] [place] [address], * TSH (11/24/2024 11:00 AM EDT)ComponentValueRef RangeTest MethodAnalysis Time Performed AtPathologist SignatureTSH0.890.49 - 4.67 uIU/mL11/24/2024 1:56 PM [facility] LABORATORYSpecimen (Source)Anatomical Location / LateralityCollection Method / VolumeCollection TimeReceived TimeBloodVenous blood / UnknownVenipuncture / Bhvvgpj8611/24/2024 11:00 AM EDT1 11:00 AM EDT Narrative Authorizing ProviderResult TypeResult StatusAkila MILAN BLOOD ORDERABLESFinal ResultPerforming OrganizationAddressCity/State/ZIP CodePhone Number [facility] [address] [place] [address], * T4, free (11/24/2024 11:00 AM EDT)ComponentValueRef RangeTest MethodAnalysis TimePerformed AtPathologist SignatureFREE T40.610.61 - 1.60 ng/dL11/24/2024 1:57 PM [facility] LABORATORYSpecimen (Source)Anatomical Location / LateralityCollection Method / VolumeCollection TimeReceived Time BloodVenous blood / UnknownVenipuncture / Iltggzb9811/24/2024 11:00 AM EDT 11/24/2024 11:00 AM EDT Narrative Authorizing ProviderResult TypeResult StatusAkila MILAN BLOOD ORDERABLESFinal ResultPerforming OrganizationAddressCity/State/ZIP CodePhone Number [facility] [address] [place] [address], documented in this encounter Visit Diagnoses Diagnosis 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- Primary documented in this encounter Additional Health Concerns AssessmentNoted TimePHQ-9 Depression Total Score: 3:26 PM EST documented as of this encounter Care Teams Team MemberRelationshipSpecialtyStart DateEnd Date Cas Galicia MD PCP - GeneralFamily Puplqgmn28/14/21documented as of this encounter
--- OUTSIDE RECORDS SUMMARY | 2024-11-26 08:30 | XMS_ITS | Encounter Summary ---
Author Organization [facility] Address [address] [place] [address] Care Team Providers Care Cutch Cleaner Name Role Phone Cas Galicia MD Primary Care Provider Encounter Details DateTypeDepartmentCare Team (Latest Contact Info)Mgnbccceult86/22/2025 8:[address] [facility] Cardiology [facility] [address] [place] [address] Awareness of heartbeats Social History Tobacco UseTypesPacks/DayYears [...] your partner or ex-partner?No01/10/2023HQ-2AnswerDate RecordedPatient Health Questionnaire-2 Swmvz723Exercise Vital SignAnswerDate RecordedOn average, how many days [...] CommentsNoSex and Gender InformationValueDate RecordedSex Assigned at ImgbgXtrlzb13/22/2025 9:10 PM EDTLegal PddJuiuul26/30/2022 1:25 PM EDTGender ItgppqatCqllqk19/22/2025 9:10 PM EDTSexual OrientationHeterosexual or Straight 09/26/2024 9:10 PM EDTdocumented as of this encounter Plan of Treatment Not on file documented as of this encounter Procedures Procedure NamePriorityDate/TimeAssociated DiagnosisCommentsCARDIAC DEVICE CHECK CHECK - CGZJZTHfutyfv81/23/2025 12:14 PM EDT Awareness of heartbeats documented [...] DateEnd Date Naderer, Cas, MD [address] [place] [address] PCP - General02/17/22documented as of this encounter
--- OUTSIDE RECORDS SUMMARY | 2024-12-01 10:40 | XMS_ITS | Encounter Summary ---
Author Organization [facility] Address [address] [place] [address] Care Team Providers Care Cad Cam Programmer Name Role Phone Cas Galicia MD Primary Care Provider [phone] Reason for Visit * ReasonCommentsWell Women Visit Encounter Details DateTypeDepartmentCare Team (Latest Contact Info)Tbpsleaxbzq86/27/2025 10:40 AM EDTOffice Visit [facility] [address] [facility] [facility] [place] [address] Rubens Tim, [address] [place] [address] Postmenopausal HRT (hormone replacement therapy) (Primary Dx); [...] other ways by your partner or ex-partner?Patient uvpqexoy27/04/2025Within the last year, have you been kicked, [...] you get together with friends or relatives?Patient brwungvw38/04/2025How often do you attend evangelical or mandaen services?Patient umjmjzmx74/04/2025Do you belong to any clubs or organizations such as evangelical groups, unions, [employer] or athletic groups, or school groups?No08/08/2024How often do you attend meetings of the clubs or organizations you belong to?Patient bcosowjv63/04/2025re you , , , , never , or living with a partner?Dstaqis7308/08/2024UDIT-CAnswerDate RecordedQ1: How often do you have a [...] like food, housing, medical care, and heating?Somewhat hard08/08/2024[facility] [place] [facility] - Occupational Stress QuestionnaireAnswerDate [...] pay the mortgage or rent on time?Patient qmizokme76/03/2024In the last 12 months, how many places have you lived?1 04/08/2023In the last 12 months, was there a time when you did not have a steady place to sleep or [facility] ([facility])?Patient caquamns73/03/2024 Housing Stability Vital SignAnswerDate RecordedIn the last 12 months, was there a time when you were not able to pay the mortgage or rent on time?No08/08/2024In the past 12 months, how many times have you moved where you were living?0 08/08/2024t any time in the past 12 months, were you homeless or living in a jail (including now)?No08/08/2024CommentsNoSex and Gender Information ValueDate RecordedSex Assigned at BirthNot on fileLegal ZgtSzbcxo42/15/2023 6:40 PM EDTGender IdentityNot on fileSexual OrientationNot on filedocumented as of this encounter Last Filed Vital Signs Vital SignReadingTime TakenCommentsBlood Dpnnfrpe957/8610 11:10 AM EDT Pulse--Temperature--Respiratory Rate--Oxygen Saturation--Inhaled Oxygen Concentration--Upbljx018 kg (228 lb 8 oz)12/01/2024 11:10 AM [...] current use of insulin ([facility]) 12/24/2020 Diffuse pain 08/23/2021 Adverse food reaction 07/25/2021 Dyspareunia in female 01/12/2023 Gastroesophageal reflux disease 12/22/2015 Gross hematuria 01/12/2023 Hearing loss 12/22/2015 History of hysterectomy 02/10/2021 Hyperlipidemia 12/22/2015 Irritable bowel syndrome 12/22/2015 Memory difficulties 03/02/2021 Migraine without aura and without status migrainosus, not intractable 12/24/2020 Moderate persistent asthma without complication ([facility]) 07/25/2021 KATELIN (obstructive sleep apnea) 12/24/2020 Ovarian cyst 01/12/2023 Palpitations 10/20/2021 Decreased activity tolerance 08/23/2021 Chronic kiyg-CYXVU-95 syndrome 03/02/2021 Primary hypothyroidism 12/22/2015 Qualitative platelet [...] CONTRAST OTHER SURGICAL HISTORY 2013 uterine ablation [place] LAP,CHOLECYSTECTOMY 2009 [place] LAPAROSCOPY W/LYSIS OF ADHESIONS 2010 SALPINGECTOMY Bilateral [...] nursing note reviewed. Exam conducted with a assistant passenger locomotive engineer present. Vitals: Estimated body mass index is [...] Plan of Treatment DateTypeDepartmentCare Team (Latest Contact Info)Jvqqoyznyeo43/03/2026 8:20 AM EDTOffice Visit [facility] [address] [place] [address] Jodi Holden, [place] [address] [place], [place] [id number] 12/07/2025 2:00 PM ESTProcedure Visit [facility] [address] [facility] [place] [address] Rubens Tim DO [address] [place], [place] [id number] NameTypePriorityAssociated DiagnosesOrder ScheduleBilateral screening mammogram ImagingRoutine Encounter [...]
--- OUTSIDE RECORDS SUMMARY | 2024-12-01 11:59 | XMS_ITS | Encounter Summary ---
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 Name Role Phone Cas Galicia MD Primary Care Provider [phone] Encounter Details DateTypeDepartmentCare Team (Latest Contact Info)Manfdzqbgzf10/22/2025Travel Social History Tobacco UseTypesPacks/DayYears UsedDateSmoking Tobacco: NeverSmokeless [...] other ways by your partner or ex-partner?Patient qqtaptcz05/04/2025Within the last year, have you been kicked, [...] you get together with friends or relatives?Patient wnldlepd83/04/2025How often do you attend uatsdin or jewish services?Patient vdtooqbj76/04/2025Do you belong to any clubs or organizations such as uatsdin groups, unions, fraternal or athletic groups, or school groups?No08/08/2024How often do you attend meetings of the clubs or organizations you belong to?Patient awaxmxys85/04/2025re you , , , , never , or living with a partner?Ygwfemw8608/08/2024UDIT-CAnswerDate RecordedQ1: How often do you have a [...] like food, housing, medical care, and heating?Somewhat hard08/08/2024[facility] [place] [facility] - Occupational Stress QuestionnaireAnswerDate [...] pay the mortgage or rent on time?Patient /03/2024In the last 12 months, how many places have you lived?1 04/08/2023In the last 12 months, was there a time when you did not have a steady place to sleep or slept in ashelter (including now)?Patient /03/2024 Housing Stability Vital SignAnswerDate RecordedIn the last 12 months, was there a time when you were not able to pay the mortgage or rent on time?No08/08/2024In the past 12 months, how many times have you moved where you were living?0 08/08/2024t any time in the past 12 months, were you homeless or living in a [facility] (including now)?No08/08/2024CommentsNoSex and Gender Information ValueDate RecordedSex Assigned at BirthNot on fileLegal GpqTphtnx00/15/2023 6:40 PM EDTGender IdentityNot on fileSexual OrientationNot on filedocumented as of this encounter Plan of Treatment DateTypeDepartmentCare Team (Latest Contact Info)Fcxopssjzvs45/03/2026 8:20 AM EDTOffice Visit [facility] [address] [place] [phone] Jodi Holden, PONCE [address] [place] [address] 12/07/2025 2:00 PM ESTProcedure Visit [facility] [address] [place] [address] Rubens Tim DO [address] [facility] [place] [address] documented as of this encounter Visit Diagnoses Not on filedocumented in this encounter Care Teams Team MemberRelationshipSpecialtyStart DateEnd Date Cas Galicia MD PCP - GeneralFamily Medicine04/09/23documented as of this encounter
--- OUTSIDE RECORDS SUMMARY | 2024-12-01 11:59 | XMS_ITS | Clinical Summary ---
Author Organization [facility] Address [address] [place] [address] Care Team Providers Care [employer] Name Role Phone Cas Dowell MD Primary Care Provider [phone] Allergies Active AllergyReactionsCriticalityNoted DateCommentsAspirinAngioedema,Rash, MccoqzmKtv44/30/2012 Other reaction(s): Angioedema, Unknown, Unknown Agvsifzq67/02/7780Bycehmqequ44/02/7759Sigljtqbvsb97/02/2023alcanezumab-Gnlm 07/07/2022ErythromycinShortness of breath,ThklhwhoPhud28/30/2012 Other Reaction(s): Unknown Fish CfhvykaSipvvUkwden76/20/5537EnffkgstkpptWhbylogs54/16/2015IbuprofenRash, ZyhmiqzJqdwah37/30/2012 Due to clotting disorder-Aleve Other reaction(s): Unknown, Unknown Due to clotting disorder-Aleve Due to clotting disorder-Aleve Other Reaction(s): Unknown Iodinated Contrast IicdzJwvzwjltafvHiuq71/19/2015 Other reaction(s): Unknown Does not tolerate with pre-medication Other reaction(s): Unknown Does not tolerate with pre-medication Tolerated with pre-medication on 09/22/21 Other reaction(s): Unknown Does not tolerate with pre-medication Tolerated with pre-medication on 09/22/21 Other reaction(s): Unknown Does not tolerate with pre-medication Other Reaction(s): Unknown LatexItching,Rash,Swelling,UnhvvlyGyy58/30/2012 Skin cracks and bleeds Other reaction(s): Unknown Skin cracks and bleeds Skin cracks and bleeds Other Reaction(s): Unknown Lavender YfkGjadfzdpaqzOkvr33/09/3349DsnsubvkzkrlEqjeDwq46/07/2021MentholHives 02/27/20227702UdcpieheMduiehxlnn98/02/2021 Other reaction(s): Angioedema Norethindrone-Eth Rnxflnjkm63/30/2012 Chest hurt and legs turned black -- saw Dr. Jorge London Penicillin G Pndjiqbdqu62/17/2024 Other Reaction(s): Unknown PenicillinsItching,LnjhItz8109/04/2011 Other reaction(s): Unknown, Unknown, Unknown Povidone-PlhoctMuqfGsn97/19/2023RofecoxibRash,MnqcwvpPmv32/30/2012 Other reaction(s): Unknown Shellfish Protein-Containing Drug ProductsHives,PzuyChv4101/08/2022imethicone 07/07/2022Sulfa AntibioticsShortness of breath,IjlbyzmbFrwl37/14/2016 Other reaction(s): Unknown Other reaction(s): Unknown Other reaction(s): Unknown Yhndrkdnbwooqhwe64/17/2024 Other Reaction(s): Unknown Sulfamethoxazole-DzviarnwguzlHobztvzJryv83/19/2014 Cant breathe Other reaction(s): Other Cant breathe Fwpmscqcsy66/06/2025ValacyclovirAnaphylaxis,Shortness of mfpjuiJjyt40/31/2022 Pphawlkux98/02/9596TauubilzHzfeighZoor06/19/2023 Uncontrolable limb movements Muscle spasms Medications MedicationSigDispense QuantityRefillsLast FilledStart DateEnd DateStatus cyanocobalamin (Vitamin B-12) 500 MCG tablet Take 1,000 mcg by mouth DailyActive fluticasone (Flonase Sensimist) 27.5 MCG/SPRAY nasal spray Administer 2 sprays into each nostril in the morning.Active montelukast (Singulair) 10 MG tablet Take by mouthActive lamoTRIgine (LaMICtal) 150 MG tablet Take by mouthActive fremanezumab (Ajovy) 225 MG/1.5ML auto-injector Active EPINEPHrine (EPIPEN 2-ERMA IJ) Inject as directedActive pyridostigmine (Mestinon) 180 MG ER tablet Take 180 mg by mouth in the morning and 180 mg before bedtime. Do not crush or chew.Active Synthroid 100 MCG tablet 3Active sertraline (Zoloft) 100 MG tablet Take 100 mg by mouth Daily02/24/2023ctive EPINEPHrine (Epipen) 0.3 MG/0.3ML injection syringe 4Active Cymbalta [address] capsule Active famotidine (Pepcid) 20 MG tablet Take by mouthActive magnesium, as gluconate, (Magonate) 500 (27 Mg) MG tablet Take 27 mg by mouth in the morning and 27 mg before bedtime.Active liothyronine (Cytomel) 5 MCG tablet 5 mcg01/31/2024ctive levalbuterol (Xopenex HFA) 45 MCG/ACT inhaler Indications:Moderate persistent asthma without complication (HCC)Inhale 2 puffs every 4 (four) hours if needed for wheezing or shortness of breath 15 g 5Active levalbuterol (Xopenex Concentrate) 1.25 MG/0.5ML nebulizer solution Indications:Moderate persistent asthma without complication (HCC)Take 0.5 mL (1.25 mg) by nebulization every 4 (four) hours if needed for wheezing or shortness of breath 60 each 5Active sAXagliptin (Onglyza) 5 MG tablet Indications:Type 2 diabetes mellitus with hyperglycemia, without long-term current use of insulin (HCC)TAKE 1 TABLET BY MOUTH EVERY DAY 90 tablet 5Active zonisamide (Zonegran) 100 MG capsule TAKE 2 CAPSULES (200 MG TOTAL) BY MOUTH IN THE MORNING.5Active Ubrogepant (Ubrelvy) 100 MG tablet Take by mouthActive hydrocortisone 2.5 % cream Indications:Other specified dermatitisApply topically 2 (two) times a day as needed (Rash) Apply thin layer to affected areas bid prn forflares 30 g 3065Active triamcinolone (Kenalog) 0.1 % cream Indications:Other specified dermatitisApply to affected areas, up to twice a day when flared, do not use one the face, groin, or underarms, 30 day supply 80 g 1105Active baclofen (Lioresal) 20 MG tablet Take 1 tablet (20 mg) by mouth in the morning and 1 tablet (20 mg) in the evening and 1 tablet (20 mg) before bedtime.5Active furosemide (Lasix) 20 MG tablet Indications:Edema of both legsTake 1 tablet (20 mg) by mouth Daily as needed (Edema) 30 tablet 5Active cholecalciferol (Vitamin D-3) 125 MCG (5000 UT) capsule Indications:Vitamin D deficiencyTAKE 1 CAPSULE (125 MCG) BY MOUTH DAILY 30 capsule 5Active DHEA 10 MG capsule Indications:Postmenopausal HRT (hormone replacement therapy)Take 5 mg by mouth Daily 1 capsule 5Active Azelastine HCl 137 MCG/SPRAY solution Discontinued DHEA 10 MG capsule Take 5 mg by mouth12/01/2024Discontinued(Reorder) Active Problems ProblemNoted DateDiagnosed DateRight wrist pain09/25/2024 Assessment & Plan (09/25/2024 4:41 PM EDT): Pain after fall and not improving. Repeat x-ray and start PT. Treat with prednisone. If no improvement may need MRI and or ortho. Right forearm pain09/25/2024 Assessment & Plan (09/25/2024 4:41 PM EDT): Pain after fall and not improving. Repeat x-ray and start PT. Treat with prednisone. If no improvement may need MRI and or ortho. Annual physical exam08/11/2024 Assessment & Plan (08/11/2024 10:03 AM EDT): Due for labs. Discussed proper diet and regular aerobic exercise. Need aerobic exercise 5-6 days a week for 30 minutes at a time. Smaller portions and limit total calories. Colonoscopy after age 45. Tetanus every 10 years. Advised not to smoke. Hormone jwigszeev82/26/2025PCOS (polycystic ovarian syndrome)04/30/2024lass 2 severe obesity due to excess calories with serious comorbidity and body mass index (BMI) of37.0 to 37.9 in adult02/11/2024 Assessment & Plan (02/11/2024 10:23 AM EST): Weight loss indicated Allergic xbravywi78/21/2024 Assessment & Plan (09/26/2023 10:10 AM EDT): Recent reaction and improved with treatment. Reactions getting worse and refer to neonatal pediatric nurse. Edema of both legs04/09/2023 Assessment & Plan (08/11/2024 10:04 AM EDT): [...] stable and elevate legs PRN. Dyspareunia in ixusbp6901/12/2023ross nkainysms39/08/2023Ovarian cyst01/12/2023 Right inguinal czorld2301/12/2023Urethral eearavpsf37/08/2023Vitamin D deficiency 01/12/2023Qualitative platelet rhqfmoqm68/27/5652Fdegjvvupcvn12/15/2022Diffuse pain08/23/2021ecreased activity crbqodido05/19/2022llergic reaction to contrast dye07/25/2021dverse food /20/2022Moderate persistent asthma without ifjcwopvzhrb25/20/2022 Assessment & Plan (02/11/2024 10:37 AM EST): Breathing stable with symbicort and continue. Tachycardia from albuterol and try xopenex PRN. Assessment & Plan (10/10/2023 9:42 AM EDT): Breathing stable with symbicort and continue. Use albuterol PRN. Assessment & Plan (04/09/2023 9:29 AM EST): Breathing stable with symbicort and continue. Use albuterol PRN. Screening for endocrine czkdooim21/10/2022ubjective muscle riqljqyz58/19/2022 Transient zfwixhkq02/19/9789Wcegymy79/26/8259Pfeviztdbxi79/26/2022Memory ktnredfrjnio20/26/2022hronic wwxn-NLAWP-61 myastalc95/26/2022 Assessment & Plan (02/11/2024 10:35 AM EST): No change in symptoms and monitor. Assessment & Plan (10/10/2023 9:42 AM EDT): No change in symptoms and monitor. Assessment & Plan (04/09/2023 9:29 AM EST): No change in symptoms and monitor. Trapezius muscle spasm03/02/2021Word finding umckrlkell85/26/2022spirin allergy 02/10/2021utonomic quacumugkcw25/06/2022 Assessment & Plan (02/11/2024 10:35 AM EST): Continued symptoms and continue medication. Follow with cardiology as scheduled. Assessment & Plan (01/16/2023 11:50 AM EST): Continued symptoms and continue medication. Follow with cardiology as scheduled. History of ykrgmagexkib07/06/2022TSD (post-traumatic stress disorder)12/24/2020 Symptomatic ggxykmftmsm39/19/2021MDD (major depressive disorder), recurrent episode, mild12/24/2020 Assessment & Plan (02/11/2024 10:36 AM EST): Symptoms stable and follow with psychiatry. Type 2 diabetes mellitus with hyperglycemia, without long-term current use of cfbwfks5212/24/2020 Assessment & Plan (08/11/2024 10:05 AM EDT): [...] and limit carbs. Migraine without aura and without status migrainosus, not fuqgzfoumhk10/19/2021 KATELIN (obstructive sleep apnea)12/24/2020hronic yvhwekvgnsbqlv58/16/2016 Assessment & Plan (09/25/2024 4:40 PM EDT): [...] stable with medication and continue. Gastroesophageal reflux ryrwyti1512/22/2015 Assessment & Plan (02/11/2024 10:23 AM EST): No symptoms Hearing loss12/22/20157670Yphelqdikrhlwv02/16/2016Irritable bowel bkylhasg84/16/2016 Primary dtqygkctdywuon56/16/2016Arachnoid cyst of pituitary gland04/07/2015 Bleeding hcioicbc20/19/2015 Resolved Problems ProblemNoted DateDiagnosed DateResolved DateCOVID-190 Assessment & Plan (02/27/2024 8:57 AM EST): Recent infection and continued cough and SOB. Repeat steroids and use albuterol every 4 hours x 48 then PRN. Use OTC PRN for symptoms. Acute non-recurrent mjldngrvutam66 Assessment & Plan (04/09/2023 9:30 AM EST): Take antibiotics for 7 days. Use OTC PRN cough or congestion. Use Motrin or Tylenol as needed for fever, aches, or pains. Increase fluid intake and rest. Should improve over next 5-7 days and if no better or worse call for re-evaluation. Abnormal urine ekjbtgmi41Stress mvfebwwoxeum56/08/2023 04/09/2023Syncope and cfolhozi04 Overview (01/12/2023): Added automatically from request for surgery [id number] Adenovirus faiccumfe72RSV (respiratory syncytial virus infection)Exacerbation of ayskap76 Orthostatic zueofbkhyba95rug xkpwwcys67 Blood pressure rkksvkwfniu58Orthostatic lightheadedness Hypersomnia with sleep apneahest pain Assessment & Plan (01/16/2023 11:50 AM EST): Continued pain but unclear cause. Follow with cardiology. Acute stress ryhsyceh28sthma1Generalized lbxacmqa74bdominal pain, acute, right lower quadrant Encounters DateTypeDepartmentCare HhwfViiqqkimahr72/27/2025 10:40 AM EDTOffice Visit [facility] [address] [place] [phone] Rubens Tim DO Postmenopausal HRT (hormone replacement therapy) (Primary Dx); Well woman exam with routine gynecological exam; Encounter for screening mammogram for malignant neoplasm of breast; Hormone wqtnavgh64/27/2025Refill [facility] [address] [facility] [facility] [place] [phone] Priscila Gonzalez, BRANDY Postmenopausal HRT (hormone replacement therapy)12/01/2024amboo flowsheet [facility] [address] [facility] [place] [phone] Rubens Tim DO 11/26/20245229Tcwbor04/26/2025linisync Result Encounter [facility] External Department Unsolicited Provider, Generic External Data 09/29/2024Results Follow-Up [facility] [address] [place] [phone] Cas Dowell MD XR elbow 1 or 2 views right09/29/2024linisync Result Encounter [facility] External Department Unsolicited Cas Dowell MD 09/29/2024linisync Result Encounter [facility] External Department Unsolicited Cas Dowell MD 09/29/2024linisync Result Encounter [facility] External Department Unsolicited Cas Dowell MD 09/29/2024Orders Only [facility] [address] [place] [phone] Cas Dowell MD 09/25/2024 3:45 PM EDTOffice Visit [facility] [address] [place] [phone] Cas Dowell MD Chronic rhinosinusitis (Primary Dx); Right wrist pain; Right forearm pain09/25/2024bstract [facility] [address] [place] [address] Cas Dowell MD 09/25/2024amboo flowsheet [facility] [address] [place] [phone] Cas Dowell MD 09/16/2024Refill [facility] [address] [place] [phone] Cas Dowell MD Vitamin D deficiencyfrom Last 3 Months Immunizations ImmunizationAdministration DatesNext DueInfluenza, N9O5-660284/15/2020Influenza, Wdoarzmosgq54/15/2020,11/06/2019Influenza, injectable, quadrivalent, preservative free10/27/2019 Family History * Patient is adopted Medical HistoryRelationNameCommentsHeart diseaseFatheradopted father; biological father's hx unknownCancerMaternal GrandfatherAortic aneurysmMaternal Grandmother Heart diseaseMaternal GrandmotherHypertensionMaternal GrandmotherSkin cancer Maternal GrandmotherCancerMotherCervical cancerMotherDiabetesMotherHypertension MotherSkin cancerMotherCancerPaternal GrandmotherLung cancerPaternal Grandmother DiabetesSisterMelanomaNeg HxRelationNameStatusCommentsFatherMaternal Grandfather DeceasedMaternal GrandmotherDeceasedMotherPaternal GrandmotherDeceasedSister Social History Tobacco UseTypesPacks/DayYears UsedDateSmoking Tobacco: NeverSmokeless Tobacco: Never Tobacco Cessation:Counseling Given: Not Answered Alcohol UseStandard Drinks/WeekCommentsNever0 (1 standard drink = 0.6 [...] other ways by your partner or ex-partner?Patient qxjkhoag81/04/2025Within the last year, have you been kicked, [...] you get together with friends or relatives?Patient oqjxakyn17/04/2025How often do you attend congregational or evangelical services?Patient xeeydgtn72/04/2025Do you belong to any clubs or organizations such as congregational groups, unions, fraternal or athletic groups, or school groups?No08/08/2024How often do you attend meetings of the clubs or organizations you belong to?Patient cbuoklze04/04/2025re you , , , , never , or living with a partner?Pjiyatn2308/08/2024UDIT-CAnswerDate RecordedQ1: How often do you have a [...] like food, housing, medical care, and heating?Somewhat hard08/08/2024[facility] [place] [facility] - Occupational Stress QuestionnaireAnswerDate [...] pay the mortgage or rent on time?Patient urgeevjg87/03/2024In the last 12 months, how many places have you lived?1 04/08/2023In the last 12 months, was there a time when you did not have a steady place to sleep or slept in bryanelter (including now)?Patient kkhdvteh03/03/2024 Housing Stability Vital SignAnswerDate RecordedIn the last 12 months, was there a time when you were not able to pay the mortgage or rent on time?No08/08/2024In the past 12 months, how many times have you moved where you were living?0 08/08/2024t any time in the past 12 months, were you homeless or living in a retirement (including now)?No08/08/2024CommentsNoSex and Gender Information ValueDate RecordedSex Assigned at BirthNot on fileLegal CgmWmkphq42/15/2023 6:40 PM EDTGender IdentityNot on fileSexual OrientationNot on file Last Filed Vital Signs Vital SignReadingTime TakenCommentsBlood Huzafkpv275/8610 11:10 AM EDT Xlbji707409/25/2024 3:50 PM CTLFjbusdocpsn91.4 ??C (97.5 ??F)09/25/2024 3:50 PM EDTRespiratory Hblh738509/25/2024 3:50 PM EDTOxygen Xbnnzhrjrw21%09/25/2024 3:50 PM EDTInhaled Oxygen Concentration--Nwglrw608 kg (228 lb 8 oz)12/01/2024 11:10 AM ZGTGijyhw310.6 cm (5' 4 )09/25/2024 3:50 PM EDTBody Mass Index39.22009/25/2024 3:50 PM EDT Plan of Treatment DateTypeDepartmentCare Team (Latest Contact Info)Wpgqdmitohd00/03/2026 8:20 AM EDTOffice Visit [facility] [address] [facility] [place] [phone] Jodi Holden, PA [address] [place] [address] 12/07/2025 2:00 PM ESTProcedure Visit [facility] [address] [place] [address] Rubens Tim, [address] [place] [address] Procedures Procedure NamePriorityDate/TimeAssociated DiagnosisCommentsCCF COMP METAB 2000 PNL JZQINUyegdjs44/26/2025 8:42 AM EDT [facility] CBC W AUTO DIFF JYZFkbaysv92/26/2025 8:42 AM EDT XR FOREARM 2 VIEWS LHNBGEbejgtk87/25/2025 2:01 PM EDTXR WRIST 2 VIEWS RIGHT Ytrjupj7409/29/2024 2:00 PM EDTXR ELBOW 3+ VIEWS ZCAZQVzijojn51/25/2025 1:59 PM EDTXR ELBOW 1-2 VIEWS RIGHT09/29/2024 1:44 PM EDT XR FOREARM 2 VIEWS RIGHT09/29/2024 1:43 PM EDT XR WRIST 1-2 VIEWS RIGHT09/29/2024 1:43 PM EDT from Last 3 Months Results * (ABNORMAL) [facility] CBC W AUTO DIFF BLD (09/30/2024 8:42 AM EDT)ComponentValueRef RangeTest MethodAnalysis TimePerformed AtPathologist SignatureCCF WBC # BLD AUTO9.843.70 - 11.00 k/uLCCFCCF RBC # BLD AUTO4.753.90 - 5.20 m/uLCCFCCF HGB BLD-MCNC14.111.5 - 15.5 g/dLCCFCCF HCT VFR BLD AUTO41.836.0 - 46.0 %CCFCCF MCV RBC AUTO88.080.0 - 100.0 fLCCFCCF MCH RBC QN AUTO29.726.0 - 34.0 pgCCFCCF MCHC RBC AUTO-MCNC33.730.5 - 36.0 g/dLCCFCCF RDW RBC-RTO11.911.5 - 15.0 %CCFCCF PLATELET # BLD XXOB650297 - 400 k/uLCCFCCF PMV BLD AUTO9.89.0 - 12.7 fLCCFCCF NEUTROPHILS/LEUK NFR BLD AUTO71.7%CCFCCF NEUTROPHILS # BLD AUTO7.061.45 - 7.50 k/uLCCFCCF LYMPHOCYTES/LEUK NFR BLD AUTO22.2%CCFCCF LYMPHOCYTES # BLD AUTO2.18 1.00 - 4.00 k/uLCCFCCF MONOCYTES/LEUK NFR BLD AUTO3.5%CCFCCF MONOCYTES # BLD AUTO0.34<0.87 k/uLCCFCCF EOSINOPHIL/LEUK NFR BLD AUTO0.9%CCFCCF EOSINOPHIL # BLD AUTO0.09<0.46 k/uLCCFCCF BASOPHILS/LEUK NFR BLD AUTO0.6%CCFCCF BASOPHILS # BLD AUTO0.06<0.11 k/uLCCFIMM GRANULOCYTES/LEUK NFR BLD AUTO1.1%CCFIMM GRANULOCYTES # BLD AUTO0.11(H)<0.10 k/uLCCFCCF NRBC/100 WBC BLD-RTO0.0/100 WBC CCFCCF NRBC # BLD AUTO<0.01<0.01 k/uLCCFCCF DIFFERENTIAL METHOD BLDAutoCCF Specimen (Source)Anatomical Location / LateralityCollection Method / Volume Collection TimeReceived Time09/30/2024 8:42 AM EDT09/30/2024 8:42 AM EDT Narrative [facility] - 09/30/2024 8:47 AM EDT Specimen Type: BLOOD SPECIMEN Ordering Facility: [facility] ?Address: [address] [place] [address] [place] [address] Original Ordering Provider: FUENTES AMARAL Authorizing ProviderResult TypeResult StatusGeneric External Data Provider CLINISYNCFinal ResultPerforming OrganizationAddressCity/State/ZIP CodePhone Number CLINISYNC [facility] [address] [place] [address] * (ABNORMAL) [facility] COMP METAB 2000 PNL SERPL (09/30/2024 8:42 AM EDT)Component ValueRef RangeTest MethodAnalysis TimePerformed AtPathologist SignatureCCF PROT SERPL-MCNC6.76.3 - 8.0 g/dLCCFCCF ALBUMIN SERPL-MCNC4.53.9 - 4.9 g/dLCCF CCF CALCIUM SERPL-MCNC9.78.5 - 10.2 mg/dLCCFCCF BILIRUB SERPL-MCNC0.30.2 - 1.3 mg/dLCCFCCF ALP SERPL-JUSM9883 - 123 U/LCCFCCF AST SERPL-CCNC10(L)13 - 35 U/L CCFCCF ALT SERPL-EKRW319 - 38 U/LCCFCCF GLUCOSE SERPL-MPPL724(H)74 - 99 mg/dL CCFComment: The [place] Diabetes Association (ADA) provides guidance for cutoff values for fasting glucose andrandom glucose. The ADA defines fasting as no [...] Standards of Medical Care in Diabetes 2016, [place] [employer]. Diabetes Care. 2016.39(Suppl 1). [facility] BUN SERPL-WFKL054 - 21 mg/dLCCFCCF CREAT SERPL-MCNC0.97(H)0.58 - 0.96 mg/dL CCFCCF SODIUM SERPL-KNQF467312 - 144 mmol/LCCFCCF POTASSIUM SERPL-SCNC3.6(L)3.7 - 5.1 mmol/LCCFCCF CHLORIDE SERPL-PCDS26552 - 107 mmol/LCCFCCF CO2 SERPL-SCNC25 22 - 30 mmol/LCCFCCF ANION GAP SERPL-EHNF182 - 15 mmol/LCCFEGFRCR SERPLBLD CKD- EPI 942951>=60 mL/min/1.73m???CCFComment:Estimated Glomerular Filtration Rate (eGFR) is calculated using the 2020 CKD-EPI creatinine equation. This equation utilizes serum creatinine, sex, and age as parameters. The creatinine assay has traceable calibration to isotope dilution-mass spectrometry. Refer to KDIGO guidelines for clinical interpretation. In patients with unstable renal function, e.g. those with acute kidney injury, the eGFRmay not accurately reflect actual GFR.Specimen (Source)Anatomical Location / LateralityCollection Method / VolumeCollection TimeReceived Time09/30/2024 8:42 AM EDT09/30/2024 8:42 AM EDT Narrative CLINISYNC - 09/30/2024 9:10 AM EDT Specimen Type: BLOOD SPECIMEN Ordering Facility: [facility] ?Address: [address] [place] [address] Original Ordering Provider: FUENTES AMARAL Authorizing ProviderResult TypeResult StatusGeneric External Data Provider CLINISYNCFinal ResultPerforming OrganizationAddressCity/State/ZIP CodePhone Number CL[facility]IS[facility] [address] [place] [address] * XR forearm 2 views right (09/29/2024 2:01 PM EDT) Only the most recent of2 resultswithin the time period is included. Anatomical RegionLateralityModalityUpper Extremities, ForearmRightRadiographic Imaging Narrative Authorizing ProviderResult TypeResult StatusMarc Delmer PEREZIMG XR PROCEDURES Final Result * XR WRIST 2 VIEWS RIGHT (09/29/2024 2:00 PM EDT)Anatomical RegionLaterality ModalityRadiographic Imaging Narrative Authorizing ProviderResult TypeResult StatusMar Naderer MDIMG XR PROCEDURES Final Result * XR elbow 3+ views right (09/29/2024 1:59 PM EDT)Anatomical RegionLaterality ModalityUpper Extremities, ElbowRightRadiographic Imaging Narrative Authorizing ProviderResult TypeResult StatusMarc Naderer MDIMG XR PROCEDURES Final Result * XR elbow 1 or 2 views right (09/29/2024 1:44 PM EDT)Anatomical Region LateralityModalityUpper Extremities, ElbowRightRadiographic ImagingSpecimen (Source)Anatomical Location / LateralityCollection Method / VolumeCollection TimeReceived Time09/29/2024 1:44 PM EDT Narrative 09/29/2024 1:46 PM EDT [facility] ?[address] ? [place] [address] ?XRay Report ? Signed ? Patient: MARC,VIJAYA S ?MR#: [id number] ?? : 1985 ?Acct:[id number] ?? Age/Sex: 38 / F ?ADM Date: 09/29/24 ?? Loc: LAB ? Attending Dr: Cas Dowell M.D. ? Ordering Physician: Cas Dowell M.D. ?? Date of Service: 09/29/24 ?? Procedure(s): XR elbow RT 2V ?? Accession Number(s): [id number] ? cc: Cas Dowell M.D. ? [facility] ? [address] ? [place] [address] ? Patient Name: ?? VIJAYA S MARC ? MRN: [id number] ? date: 1985 ?Sex: F ?? Assigned Patient Location: LAB ?? Current Patient Location: LAB ?? Accession/Order Number: [id number] ?? Exam Date: 09/29/2024 ??13:00 ?Report Date: 09/29/2024 ??13:44 ? At the request of: ?? CAS ??NADERER ??MD ? Procedure: ??XR elbow RT 2V ? RIGHT ELBOW ??- 2 views ? CLINICAL HISTORY: Right Forearm Pain ? COMPARISON: None ? FINDINGS: ? No elbow joint effusion or acute bony process. ??Joint spaces appear ?? maintained. ? XR/XR elbow RT 2V ?? IMPRESSION: ? NO ACUTE BONY PROCESS. ? Impression dictated by: Michael Price Jr., D.O. ??09/29/2024 1:44 PM ? Dictation Location: RADIO-PC-23 ? Electronically authenticated by: [id number] ??Y ?? Date: 09/29/2024 ??13:44 ? Dictated By: ?Michael Price M.D. ? Signed By: ?09/29/246 ? DD/ 1344 ? TD/TT: ? Ceramic Designer: Procedure Note Radiology, Radiologist, MD - 09/29/2024 [place] [address] XRay Report Signed Patient: VIJAYA TRAN SMR#: [id number] : 1985Acct:[id number] Age/Sex: 38 / FADM Date: 09/29/24 Loc: LAB Attending Dr: Cas Dowell M.D. Ordering Physician: Cas Dowell M.D. Date of Service: 09/29/24 Procedure(s): XR elbow RT 2V Accession Number(s): [id number] cc: Cas Dowell M.D. The [place] [id number] Patient Name: VIJAYA TRAN MRN: [id number] date: 1985 Sex: F Assigned Patient Location: LAB Current Patient Location: LAB Accession/Order Number: [id number] Exam Date: 09/29/2024 13:00 Report Date: 09/29/2024 [...] Jr., D.O. 09/29/2024 1:44 PM Dictation Location: [place] [address] Electronically authenticated by: [id number] Y Date: 3:44 Dictated By: Michael Price M.D. Signed By:09/29/24 1346 DD/ 1344 TD/TT: Ceramic Designer: Authorizing ProviderResult TypeResult StatusMarc Naderer MDIMG XR PROCEDURES Final Result * XR wrist 1 or 2 views right (09/29/2024 1:43 PM EDT)Anatomical Region LateralityModalityUpper Extremities, WristRightRadiographic ImagingSpecimen (Source)Anatomical Location / LateralityCollection Method / VolumeCollection TimeReceived Time09/29/2024 1:43 PM EDT Narrative 09/29/2024 1:45 PM EDT [facility] ?[address] ? [place], [place] [address] ?XRay Report ? Signed ? Patient: MARC,VIJAYA S ?MR#: [id number] ?? : 1985 ?Acct:[id number] ?? Age/Sex: 38 / F ?ADM Date: 09/29/24 ?? Loc: LAB ? Attending Dr: Cas Dowell M.D. ? Ordering Physician: Cas Dowell M.D. ?? Date of Service: 09/29/24 ?? Procedure(s): XR wrist RT 2V ?? Accession Number(s): [id number] ? cc: Cas Dowell M.D. ? [facility] ? [address] ? [place] [address] ? Patient Name: ?? VIJAYA S MARC ? MRN: [facility]:[id number] ? date: 1985 ?Sex: F ?? Assigned Patient Location: LAB ?? Current Patient Location: LAB ?? Accession/Order Number: [id number] ?? Exam Date: 09/29/2024 ??13:00 ?Report Date: 09/29/2024 ??13:43 ? At the request of: ?? CAS ??DELMER ? Procedure: ??XR wrist RT 2V ? RIGHT WRIST - 2 views ? CLINICAL HISTORY: Fall. ??Right wrist pain ? COMPARISON: None ? FINDINGS: ? No focal soft tissue abnormality. ??No acute bony process. ??Joint spaces appear ?? maintained. ??No bony erosions. ? XR/XR wrist RT 2V ?? IMPRESSION: ? NO ACUTE BONY PROCESS. ? Impression dictated by: Michael Price Jr., D.O. ??09/29/2024 1:43 PM ? Dictation Location: RADIO-PC-23 ? Electronically authenticated by: [id number] ??Y ?? Date: 09/29/2024 ??13:43 ? Dictated By: ?Michael Price M.D. ? Signed By: ?09/29/241344 ? DD/ 42 ? TD/TT: ? Ceramic Designer: Procedure Note Radiology, Radiologist, - 09/29/2024 [place] [address] XRay Report Signed Patient: VIJAYA TRAN SMR#: [id number] : 1985Acct:[id number] Age/Sex: 38 / FADM Date: 09/29/24 Loc: LAB Attending Dr: Cas Dowell M.D. Ordering Physician: Cas Dowell M.D. Date of Service: 09/29/24 Procedure(s): XR wrist RT 2V Accession Number(s): [id number] cc: Cas Dowell M.D. [place] [address] Patient Name: VIJAYA TRAN MRN: [facility]:[id number] date: 1985 Sex: F Assigned Patient Location: LAB Current Patient Location: LAB Accession/Order Number: [id number] Exam Date: 09/29/2024 13:00 Report Date: 09/29/2024 [...] Jr., D.O. 09/29/2024 1:43 PM Dictation Location: [place] [address] Electronically authenticated by: [id number] Y Date: 3:43 Dictated By: Michael Price M.D. Signed By:09/29/24 1345 DD/ 134 TD/TT: Ceramic Designer: Authorizing ProviderResult TypeResult StatusMaramy LINDSEYG XR PROCEDURES Final Result from Last 3 Months Insurance * Guarantor: Vijaya Tran Shayla TypeRelation to PatientDate of BirthPhone Billing AddressPersonal/FtybrlDtaw51/15/1986 [address] [address] MemberSubscriberPlan / Payer (Effective 2022-Present)Name:Vijaya Tran Member ID:[id number] Relation to Subscriber:SelfName:MarcVijaya Dominick Subscriber ID:[id number] Payer ID:Not on file Type:Not on file Address: [address] [place] [address] Care Teams Team MemberRelationshipSpecialtyStart DateEnd Date Cas Dowell MD PCP - GeneralFamily Medicine04/09/23
--- OUTSIDE RECORDS SUMMARY | 2024-12-01 11:59 | XMS_ITS | Encounter Summary ---
Author Organization [facility] tem Address [facility] [address] [place] [address] Care Team Providers Care Heel Sander Rubber Name Role Phone Cas Galicia MD Primary Care Provider [phone] Encounter Details DateTypeDepartmentCare Team (Latest Contact Info)Njzpcppvzey51/20/2025Travel Social History Tobacco UseTypesPacks/DayYears UsedDateSmoking Tobacco: NeverSmokeless Tobacco: NeverAlcohol UseStandard Drinks/WeekCommentsNot Currently0 (1 standard drink = 0.6 oz pure alcohol)PHQ-2AnswerDate RecordedTotal Llkwd242/30/2023Childcare AnswerDate GzidsmfrIihcrgqvrTprftko20/12/2019EmploymentAnswerDate Recorded XcrazirxvsFihksjv91/12/2019Hunger ScreeningAnswerDate RecordedWithin the past 12 months we worried whether our food would run out before we got money to buy more.Never True11/22/2023Within the past 12 months the food we bought just didn't last and we didn't have money to get more.Never True4Purpose - LifeAnswerDate RecordedPurpose and direction in aetnFotnqas70/11/2021 CommentsNoSex and Gender InformationValueDate RecordedSex Assigned at Wfoeww0805/14/2021 2:48 PM EDTLegal GazIatfqs70/06/2015 12:02 PM EDTGender OvvlivhjJpiuih23/09/2022 2:48 PM EDTSexual YkezdlymnbbBhisywkp62/09/2022 2:48 PM EDTdocumented as of this encounter Plan of Treatment DateTypeDepartmentCare Team (Latest Contact Info)Vtafpfihcva07/21/2025 10:30 AM ESTOffice Visit [facility] Department of [facility] [address] [phone] Lionel Stella, INTERNAL REVIEW AND AUDIT COMPLIANCE-REPORTING MANAGER [address] [phone] 01/05/2025 12:30 PM ESTClinical Support [facility] [address] [place] [address], [address] [place] [phone] Argentina Trivedi, [facility] [address] [place] [address] [address] [place] [phone] 01/27/2025 4:15 PM ESTOffice Visit [facility] [address] [place] [address], [address] [place] [phone] [place] [address] [place] [address] [place] [phone] 11/24/2025 10:00 AM EDTOffice Visit [facility], A Department of [facility] [address] [phone] Akila Ballard MD [address] [address] documented as of this encounter Visit Diagnoses Not on filedocumented in this encounter Additional Health Concerns AssessmentNoted TimePHQ-9 Depression Total Score: 3:26 PM EST documented as of this encounter Care Teams Team MemberRelationshipSpecialtyStart DateEnd Date Cas Galicia MD PCP - GeneralFamily Wfkajwny44/14/21documented as of this encounter
--- OUTSIDE RECORDS SUMMARY | 2024-12-01 11:59 | XMS_ITS | Clinical Summary ---
Author Organization [facility] Address [address] [place] [address] Care Team Providers Care Email Operations Manager Name Role Phone Cas Galicia MD Primary Care Provider [phone] Sai Perez MD Unavailable [phone] Rubens Tim DO Unavailable [phone] Allergies Active AllergyReactionsCriticalityNoted WvekUnypisokMnhvbybeUlelbxshac73/02/2021 QpbreztMnbosftpwn98/19/2015BupropionOther: See Dxnohlzn74/17/2023 Reports like seizure activity and the fall asleep Other reaction(s): Other (See Comments) Reports like seizure activity and the fall asleep Reports like seizure activity and the fall asleep CefaclorShortness of Breath,Anaphylaxis,NkctgwqsLqbw57/30/2012 Other reaction(s): Unknown Cefuroxime AxetilShortness of Ipmiuu2502/23/2014ClindamycinRash,Shortness of Sjlghq1302/23/2014ErythromycinSwelling,Shortness of Breath,Ohmtdzy8902/23/2014 HyhkeosmooLytbjurlfsm84/18/2021Fish Containing VyhlogtaVseyxRhgnhk68/20/2022 RkigpittmgxfNblhdyxt24/16/2015Iodinated Contrast YaigdNgqmgotfdlhRuyb13/19/2015 Tolerated with pre-medication on 09/22/21 Other reaction(s): Unknown Does not tolerate with pre-medication LatexRash,Itching,AcyzkaaWjm82/19/2015 Skin cracks and bleeds Lavender (Lavandula Angustifolia)Rktmslopdjh69/02/2021Norethindrone-Ethin IbakhkujdDhetsmm79/30/2012 Chest hurt and legs turned black -- saw Dr. Jorge London Penicillin G KacmpqmvuhMxdienx35/14/2022enicillinsRash,Wliwjug8402/23/2014 Shellfish HomgdjtFilxqSawdwt42/20/2022ulfa (Sulfonamide Antibiotics)Swelling, Shortness of Cqfesv4905/18/20159066ZlyqmjejlPvdipav33/04/2022rospirenone-Ethinyl EstradiolOther: See Sctzshbu37/04/2022 Skin discoloration of feet with OCPs Medications * This document contains information received from the source organization and may not represent a complete record from that organization. MedicationSigDispense QuantityRefillsLast FilledStart DateEnd DateStatus montelukast (SINGULAIR) 10 mg tablet Take 10 mg by mouth once daily. 01/19/2014ctive levothyroxine (SYNTHROID) 100 mcg tablet Take 100 mcg by mouth daily before breakfast. Takes 1.5 tablets on Wednesdays Active EPINEPHrine 0.1 mg/0.1 mL AutoInjector as needed. Active lamoTRIgine (LAMICTAL) 150 mg tablet Take 150 mg by mouth daily at bedtime. Active sertraline (ZOLOFT) 100 mg tablet Take 200 mg by mouth daily at bedtime. 06/11/2019Active mecobalamin, vitamin B12, 1,000 mcg ODT once daily.04/05/2021ctive VITAMIN D-3 125 mcg (5,000 unit) tab Take 5,000 Units by mouth once daily.04/29/2021ctive zonisamide (ZONEGRAN) 100 mg capsule Indications:Chronic migraine without aura, intractable, without status migrainosusTake 1 capsule by mouth once daily. 90 capsule ctive Additional Information Patient taking differently:100 mg ORAL2 TIMES DAILY, Reported on 09/30/2024 rimegepant (NURTEC ODT) 75 mg disintegrating tablet Indications:Chronic migraine without aura, intractable, without status migrainosusTake 1 tablet by mouth once daily as needed. No more than 1 dose in 24 hours. 8 tablet 11007/06/2021ctive cetirizine (ZYRTEC) 10 mg tablet Indications:Angioedema, initial encounter,UrticariaTake 10 mg by mouth as needed.Active diphenhydrAMINE (BENADRYL) 25 mg tablet Take 50 mg by mouth every 6 hours as needed.Active UBRELVY 100 mg tablet TAKE 1 TABLET BY MOUTH AT ONSET OF MIGRAINE. MAY REPEAT IN 2 HOURS NEEDED. MAX 2 TABLET IN 24 HOURS08/25/2021ctive fremanezumab-vfrm subcutaneus auto-injector 225 mg/1.5 mL (AJOVY) Indications:Chronic migraine without aura, intractable, without status migrainosusInject 1.5 mL subcutaneously once every month. Do not shake. 1.5 mL 11006/12/2022 8:34 AM EDT10/19/2021ctive SITagliptin (JANUVIA) 100 mg tablet Take 1 tablet by mouth once daily.10/20/2021ctive levalbuterol tartrate HFA 45 mcg/actuation inhaler Indications:Post-acute sequelae of COVID-19 (PASC),Moderate persistent asthma without complication (HCC)Inhale 1-2 Puffs as instructed every 4 hours as needed for wheezing/shortness of breath. 1 Each ctive DULoxetine (CYMBALTA) 30 mg capsule TAKE 1 CAPSULE BY MOUTH EVERY DAY DO NOT CRUSH OR CHEW01/28/2022ctive Fluticasone Furoate (FLONASE SENSIMIST) 27.5 mcg/actuation nasal spray 1 spray in each nostrilActive CPAP/BIPAP/OTHER Type .CPAPSettings into a note to see current settings/supplies/DME information. Active pyridostigmine (MESTINON) 60 mg tablet Take 180 mg by mouth two times a day.07/21/2022ctive azelastine 0.1% nasal spray SPRAY 1 SPRAY INTO EACH NOSTRIL IN THE MORNING AND BEFORE BEDTIME DIRECTED 09/07/2022ctive aminocaproic acid (AMICAR) 500 mg tablet Indications:Qualitative platelet disorder (HCC)Take 2 tablets by mouth every 6 hours as needed (once prior to dentist and then after for 3-4 doses.) for up to 20 days. 40 tablet ctive magnesium glycinate 100 mg magnesium capsule Take 200 mg by mouth as directed.Active sAXagliptin (ONGLYZA) 5 mg tab Take 5 mg by mouth once daily.5Active liothyronine (CYTOMEL) 5 mcg tablet Take 5 mcg by mouth once daily.4Active potassium chloride (K-TAB) 10 mEq tablet Take 1 tablet by mouth once daily. 30 tablet 5Active Active Problems ProblemNoted DateDiagnosed DateQualitative platelet atchnbdc80/27/2023 Ckuydufujrgv38/15/2022iffuse pain08/23/2021ecreased activity tolerance 08/23/2021rthostatic neztrgtzluh43/19/2022Moderate persistent asthma without tbfrxaziimbj10/20/2022Gastroesophageal reflux kdhskpw1807/25/2021llergic rhinitis 07/25/2021llergic reaction to contrast dye07/25/2021rug nwdzcoid97/20/2022 Adverse food qojylitd90/20/2022creening for endocrine /10/2022rimary lzqvfhibuxaxhc83/10/2022ymptomatic sjgcamovxog28/19/2022lood pressure yxgorlmfnxq17/19/2022ubjective muscle cynnakoj21/19/2022hysical deconditioning 05/24/2021Transient glkturok66/19/2022rthostatic nynenihyiahilie69/19/2022 Arachnoid cyst of pituitary gland04/07/2015Bleeding /19/2015 Encounters DateTypeDepartmentCare VxbuFcuilheolsq49/26/2025 9:30 AM EDTVisit (SP) Office Hematology/Oncology [address] [place] [address] [place] [address] Shweta Masters APRN.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 POTS (postural orthostatic tachycardia syndrome) (Primary Dx); Bleeding disorder; Qualitative platelet disorder (HCC); Systemic lupus erythematosus, unspecified SLE type, unspecified organ involvement status (HCC); Celiac disease (HCC); Irritable bowel syndrome without diarrhea; History of 2019 novel coronavirus disease (COVID-19); Status post /26/2025Travelfrom Last 3 Months Immunizations ImmunizationAdministration DatesNext Dueinfluenza (HD-IIV3) vaccine, age 65+ yr, high dose, trivalent, PF (FLUZONE HIGH-DOSE)11/06/2019influenza (IIV4) vaccine, age 6 mo - 64 yr, quadrivalent, PF (AFLURIA, FLUARIX, FLULAVAL, FLUZONE) 10/27/2019influenza [id number] virus vaccine, national iakeqekxk96/15/2020 influenza vaccine, unspecified frryhxowpmv30/15/2020,11/06/2019,10/27/2019 Family History Medical HistoryRelationCommentsDiabetesFatherHeart diseaseFatherDied at age 57 HypertensionFatherCardiomyopathyMotherDied at age 52DiabetesMotheruncontrolled Heart AttackMotherFirst MT at age 51HypertensionMotherIschemic Heart Disease MotherNo Ocular DiseaseOtherDiabetesSisterHypertensionSisterHeartSon 1Being evaluated for HOCM (Dad has)HeartSon 2Being evaluated for HOCM (Dad has)Syncope Son 2Neurocardiogenic SyncopeAsthmaSon 3HeartSon 3Being evaluated for HOCM (Dad has)RelationStatusCommentsFatherDeceasedMaternal GrandfatherDeceasedMaternal GrandmotherDeceasedMotherDeceasedOtherPaternal GrandfatherDeceasedPaternal GrandmotherDeceasedSisterAliveSon 1AliveSon 2AliveSon 3Alive Social History Tobacco UseTypesPacks/DayYears UsedDateSmoking Tobacco: NeverPassive Smoke Exposure: PastSmokeless Tobacco: Never Tobacco Cessation:Counseling Given: No Alcohol UseStandard Drinks/WeekCommentsNot Currently0 (1 standard drink = 0.6 oz pure alcohol)PHQ-2AnswerDate RecordedPHQ-2 jcvpx2584Area Deprivation IndexAnswerDate RecordedNational Score (1-100), lower number is lower risk86 10/02/2022State Score (1-10), lower number is lower mdht0113Data from: https://www.neighborhoodatlas.medicine.[facility].edu/. Last address used for [address] 3CommentsNoSex and Gender Information ValueDate RecordedSex Assigned at QfzfcFihdvh90/22/2021 5:05 PM EDTLegal Sex Temmzx5302/20/2014 4:12 PM ESTGender JtoncfflClcddp63/22/2021 5:05 PM EDTSexual RhffmooqwhsDpkbytbz14/22/2021 5:05 PM EDT Last Filed Vital Signs Vital SignReadingTime TakenCommentsBlood Bjuerscv131/80009/30/2024 8:54 AM EDT Mcask608909/30/2024 8:54 AM YLSMsodkmyqzhp36.4 ??C (97.5 ??F)09/30/2024 8:54 AM EDTRespiratory Rfnz758009/30/2024 8:54 AM EDTOxygen Qmlphruail159%09/30/2024 8:54 AM EDTInhaled Oxygen Concentration--Ephjwm212.3 kg (229 lb 15 oz)09/30/2024 8:54 AM ZDYKufhzy832.6 cm (5' 4.02 )09/30/2024 8:54 AM EDTBody Mass Index39.45 09/30/2024 8:54 AM EDT Plan of Treatment DateTypeDepartmentCare Team (Latest Contact Info)Lxisdkcfhwo00/25/2026 9:15 AM EDTOffice Visit [facility] [address] [place] [address] 1 year follow up09/29/2025 9:30 AM EDTVisit (SP) Office Hematology/Oncology [address] [place] [address] [place] [address] Shweta Masters APRN.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 [address] [place] [address] 1 year follow upHealth MaintenanceDue DateLast DoneCommentsAnnual PCP Team Chronic Disease Visit12/20/2001Anxiety Geaayoxrw11/15/2002Depression Screening 12/20/2001HIV Ahvbndujf86/15/2002Hepatitis C Zeseefaxl78/15/2002DTaP,Tdap,Td Vaccine (1 - Tdap)12/20/2002Hepatitis B Vaccine (1 of 3 - 19+ 3-dose series) 12/20/2002Pneumococcal Vaccine (1 of 2 - PCV)12/20/2002Cervical Cancer Screening 12/20/2004HPV Vaccine (1 - 3-dose SCDM series)12/20/2010Mammogram Screening 4Covid-19 Vaccine ( season)2024Influenza Vaccine (#1) 510/, 11/06/2019, 11/06/2019, Additional history exists Procedures Procedure NamePriorityDate/TimeAssociated DiagnosisCommentsCOMPREHENSIVE METABOLIC CEGGHYzhijug98/26/2025 8:42 AM EDT Qualitative platelet disorder (HCC) CBC + SSPHMigajxs97/26/2025 8:42 AM EDT Qualitative platelet disorder (HCC) from Last 3 Months Results * (ABNORMAL) COMPREHENSIVE METABOLIC PANEL (09/30/2024 8:42 AM EDT)Component ValueRef RangeTest MethodAnalysis TimePerformed AtPathologist Signature Protein, Total6.76.3 - 8.0 g/dL09/30/2024 9:10 AM [facility] LABAlbumin4.53.9 - 4.9 g/dL09/30/2024 9:10 AM [facility]TN[facility] LABCalcium, Total9.78.5 - 10.2 mg/dL09/30/2024 9:10 AM [facility] LABBilirubin, Total0.30.2 - 1.3 mg/dL 09/30/2024 9:10 AM ED[facility] LABAlkaline Jxxbhhlixki6046 - 123 U/L09/30/2024 9:10 AM [facility]TNORT[facility] VOOQIA96(L)13 - 35 U/L09/30/2024 9:10 AM [facility]TNORT[facility] PJREUR823 - 38 U/L09/30/2024 9:10 AM [facility] YFERkhxhfm506(H)74 - 99 mg/dL09/30/2024 9:10 AM EDTRALE[facility] LABComment: The [place] Diabetes Association (ADA) provides guidance for cutoff [...] Standards of Medical Care in Diabetes 2016, [place] Diabetes Association. Diabetes Care. 2016.39(Suppl 1). CMI621 - 21 mg/dL09/30/2024 9:10 AM [facility] Creatinine0.97(H)0.58 - 0.96 mg/dL09/30/2024 9:10 AM [facility] CCZUivzmg281503 - 144 mmol/L09/30/2024 9:10 AM [facility] LABPotassium3.6(L)3.7 - 5.1 mmol/L09/30/2024 9:10 AM [facility] TJKCgrvdstx38413 - 107 mmol/L09/30/2024 9:10 AM [facility] ABIOK44932 - 30 mmol/L09/30/2024 9:10 AM [facility] LABAnion Omk978 - 15 mmol/L09/30/2024 9:10 AM [facility] LABEstimated Glomerular Filtration Rate 76>=60 mL/min/1.73m 09/30/2024 9:10 AM [facility] LABComment:Estimated Glomerular Filtration Rate (eGFR) is calculated using [...] Location / LateralityCollection Method / VolumeCollection TimeReceived TimeBloodBLOOD SPECIMEN / UnknownVenipuncture / Scdkzrv9509/30/2024 8:42 AM EDT09/30/2024 8:42 AM EDT Narrative Authorizing ProviderResult TypeResult StatusJayme Marinelli MDLABORATORYFinal ResultPerforming OrganizationAddressCity/State/ZIP CodePhone Number [facility] [address] [place] [address] * (ABNORMAL) COMPLETE BLOOD COUNT AND DIFFERENTIAL (09/30/2024 8:42 AM EDT) ComponentValueRef RangeTest MethodAnalysis TimePerformed AtPathologist SignatureWBC9.843.70 - 11.00 k/uL09/30/2024 8:47 AM EDTNORT[facility] LABRBC4.753.90 - 5.20 m/uL09/30/2024 8:47 AM [facility]TN[facility] UKILoaxcqowlr94.111.5 - 15.5 g/dL09/30/2024 8:47 AM EDT [facility] JKSDzayvmkmxy35.836.0 - 46.0 %09/30/2024 8:47 AM [facility] QRZAJN27.080.0 - 100.0 fL 09/30/2024 8:47 AM [facility]TN[facility] HJSDIP35.726.0 - 34.0 pg09/30/2024 8:47 AM [facility] [place] ZLLUJMY80.730.5 - 36.0 g/dL09/30/2024 8:47 AM [facility]TNOR[facility] LABRDW-CV11.9 11.5 - 15.0 %09/30/2024 8:47 AM [facility]TN[facility] LAB Platelet Bvmef779353 - 400 k/uL09/30/2024 8:47 AM [facility]TN[facility] LABMPV9.89.0 - 12.7 fL09/30/2024 8:47 AM [facility]TN[facility] LABNeutrophils %71.7%09/30/2024 8:47 AM EDTNORT[facility] LABAbs Neut7.061.45 - 7.50 09/30/2024 8:47 AM [facility] LABLymphocytes %22.2%09/30/2024 8:47 AM [facility]NOM[facility] LABAbs Lymph2.181.00 - 4.00 /09/30/2024 8:47 AM EDT [facility] LABMonocytes %3.5%09/30/2024 8:47 AM EDT [facility] LABAbs Mono0.34<0.87 09/30/2024 8:47 AM EDJ[facility] LABEosinophils %0.9%09/30/2024 8:47 AM [facility]TN[facility] LABAbs Eosin0.09<0.46 09/30/2024 8:47 AM EDJ[facility] LABBasophils %0.6%09/30/2024 8:47 AM [facility]OM[facility] LABAbs Baso0.06<0.11 09/30/2024 8:47 AM EDJ[facility] LABImmature Granulocytes %1.1% 09/30/2024 8:47 AM [facility]TNOM[facility] LABAbs Immature Gran 0.11(H)<0.10 [facility] 8:47 AM [facility]TNOM[facility] LAB NRBC0.0/100 WBC09/30/2024 8:47 AM EDJ[facility] LAB Absolute nRBC<0.01<0.01 /09/30/2024 8:47 AM EDJ.[facility]. [facility] LABDiff ChpeYtmu14/26/2025 8:47 AM EDTNOM[facility] LABSpecimen (Source)Anatomical Location / LateralityCollection Method / Volume Collection TimeReceived TimeBloodBLOOD SPECIMEN / UnknownVenipuncture / Mtkyhhx8709/30/2024 8:42 AM EDT09/30/2024 8:42 AM EDT Narrative Authorizing ProviderResult TypeResult StatusVivejoy Marinelli MDLABORATORYFinal ResultPerforming OrganizationAddressCity/State/ZIP CodePhone Number [facility] [address] [place] [address] from Last 3 Months Insurance * Guarantor: Vijaya Del Angel TypeRelation to PatientDate of BirthPhone Billing AddressPersonal/IpepfzEttl33/15/1986 [address] [address] Care Teams Team MemberRelationshipSpecialtyStart DateEnd Date Cas Galicia MD PCP - GeneralFamily Medicine02/20/14 Sai Perez MD [address] [place] [address] Primary Staff PhysicianCardiology07/21/21 Rubens Tim DO [address] [place] [address] [place] [address] ReferringOb/Gyn08/05/21
--- OUTSIDE RECORDS SUMMARY | 2024-12-01 11:59 | XMS_ITS | Encounter Summary ---
Author Organization [facility] Address [address] [place] [address] Care Team Providers Care Mixed Crop Farmer Name Role Phone Cas Galicia MD Primary Care Provider [phone] Encounter Details DateTypeDepartmentCare Team (Latest Contact Info)Xripjxesqvb58/27/2025amboo flowsheet NIRAJ Fernandez OBGYN [address] [place] [address] Rubens Tim DO [address] [facility] Kathie Fernandez, [facility] Social History Tobacco UseTypesPacks/DayYears UsedDateSmoking Tobacco: NeverSmokeless [...] other ways by your partner or ex-partner?Patient gsuewfyb08/04/2025Within the last year, have you been kicked, [...] you get together with friends or relatives?Patient lvccnydn72/04/2025How often do you attend yazidism or yazidi services?Patient tnnunggc75/04/2025Do you belong to any clubs or organizations such as yazidism groups, unions, Empowered Careers or athletic groups, or school groups?No08/08/2024How often do you attend meetings of the clubs or organizations you belong to?Patient /04/2025re you , , , , never , or living with a partner?Rbdtzfi4008/08/2024UDIT-CAnswerDate RecordedQ1: How often do you have a [...] like food, housing, medical care, and heating?Somewhat hard08/08/2024[facility] [place] of Occup[facility] - Occupational Stress QuestionnaireAnswerDate [...] pay the mortgage or rent on time?Patient vlwarpxc53/03/2024In the last 12 months, how many places have you lived?1 04/08/2023In the last 12 months, was there a time when you did not have a steady place to sleep or slept in ashelter (including now)?Patient kzydjweu76/03/2024 Housing Stability Vital SignAnswerDate RecordedIn the last 12 months, was there a time when you were not able to pay the mortgage or rent on time?No08/08/2024In the past 12 months, how many times have you moved where you were living?0 08/08/2024t any time in the past 12 months, were you homeless or living in a detention (including now)?No08/08/2024CommentsNoSex and Gender Information ValueDate RecordedSex Assigned at BirthNot on fileLegal AwbKpbruc42/15/2023 6:40 PM EDTGender IdentityNot on fileSexual OrientationNot on filedocumented as of this encounter Plan of Treatment DateTypeDepartmentCare Team (Latest Contact Info)Ivttwyshxrn32/03/2026 8:20 AM EDTOffice Visit [facility] [address] [place] [address] Jodi Holden, PONCE [address] [place] [address] [place] [address] 12/07/2025 2:00 PM ESTProcedure Visit [facility] [address] [place] [address] [place], Rubens, [address] [place] [address] documented as of this encounter Visit Diagnoses Not on filedocumented in this encounter Care Teams Team MemberRelationshipSpecialtyStart DateEnd Date Cas Galicia MD PCP - GeneralFamily Medicine04/09/23documented as of this encounter
--- OUTSIDE RECORDS SUMMARY | 2024-12-01 11:59 | XMS_ITS | Encounter Summary ---
Author Organization [facility] tem Address [facility] [place]-[id number] [address] [place] [address] Care Team Providers Care Weaver Hand Loom Name Role Phone Cas Galicia MD Primary Care Provider [phone] Encounter Details DateTypeDepartmentCare Team (Latest Contact Info)Cjslwwqtekh27/22/2025Results Follow-Up [facility] Adult Endocrinology, A Department of [facility] [address] [phone] Akila Ballard MD [address] [address] T4, free, TSH, T3, free Social History Tobacco UseTypesPacks/DayYears UsedDateSmoking Tobacco: NeverSmokeless Tobacco: NeverAlcohol UseStandard Drinks/WeekCommentsNot Currently0 (1 standard drink = 0.6 oz pure alcohol)PHQ-2AnswerDate RecordedTotal Sblyz714/30/2023Childcare AnswerDate NfhzwpexOhovfxjtfShonlxf87/12/2019EmploymentAnswerDate Recorded DuhxpbrlbrIujaxwx87/12/2019Hunger ScreeningAnswerDate RecordedWithin the past 12 months we worried whether our food would run out before we got money to buy more.Never True11/22/2023Within the past 12 months the food we bought just didn't last and we didn't have money to get more.Never True4Purpose - LifeAnswerDate RecordedPurpose and direction in ylyoOmmygpc15/11/2021 CommentsNoSex and Gender InformationValueDate RecordedSex Assigned at Fqxqmm9805/14/2021 2:48 PM EDTLegal BovOgkwci47/06/2015 12:02 PM EDTGender UfwrmdyfQdlpmu06/09/2022 2:48 PM EDTSexual MizgmjlmxwjYzfvkdkx07/09/2022 2:48 PM EDTdocumented as of this encounter Plan of Treatment DateTypeDepartmentCare Team (Latest Contact Info)Kbhqhcwhuvk75/21/2025 10:30 AM ESTOffice Visit [facility] Neurology, A Department of [facility] [address] [phone] Stella Flowers, .NET DEVELOPER-[employer] [place] ATTORNEY [address] [phone] 01/05/2025 12:30 PM ESTClinical Support [facility] - [facility] [address] [place] [address], [address] [place] [phone] Argentina Trivedi, [facility] CASTING MACHINE REPAIRER [address] [place] [address] [address] [place] [address] 01/27/2025 4:15 PM ESTOffice Visit [facility] [address] [place] [address], [address] [place] [address] Terri Smith MD [address] [facility] [address] [place] [address] 11/24/2025 10:00 AM EDTOffice Visit [facility] Adult Endocrinology, A Department of [facility] [address] [phone] Akila Ballard MD [address] [address] documented as of this encounter Visit Diagnoses Not on filedocumented in this encounter Additional Health Concerns AssessmentNoted TimePHQ-9 Depression Total Score: 3:26 PM EST documented as of this encounter Care Teams Team MemberRelationshipSpecialtyStart DateEnd Date Cas Galicia MD PCP - GeneralFamily Cdburftr57/14/21documented as of this encounter
--- OUTSIDE RECORDS SUMMARY | 2024-12-01 11:59 | XMS_ITS | Encounter Summary ---
Author Organization [facility] tem Address [facility] [id number] [address] [place] [address] Care Team Providers Care Neurosurgical Physician Assistant Name Role Phone Cas Galicia MD Primary Care Provider [phone] Encounter Details DateTypeDepartmentCare Team (Latest Contact Info)Srcuizaszoy22/23/2025Orders Only [facility] Adult Endocrinology, A Department of [facility] [address] [phone] Akila Ballard MD 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) Social History Tobacco UseTypesPacks/DayYears UsedDateSmoking Tobacco: NeverSmokeless Tobacco: NeverAlcohol UseStandard Drinks/WeekCommentsNot Currently0 (1 standard drink = 0.6 oz pure alcohol)PHQ-2AnswerDate RecordedTotal Gkztk870/30/2023Childcare AnswerDate DsozghlvAoknlwegzWttaryp52/12/2019EmploymentAnswerDate Recorded CtckyakrahHxrated10/12/2019Hunger ScreeningAnswerDate RecordedWithin the past 12 months we worried whether our food would run out before we got money to buy more.Never True11/22/2023Within the past 12 months the food we bought just didn't last and we didn't have money to get more.Never True4Purpose - LifeAnswerDate RecordedPurpose and direction in dqfwAcfmmps08/11/2021 CommentsNoSex and Gender InformationValueDate RecordedSex Assigned at Dofugu2205/14/2021 2:48 PM EDTLegal KupGagmgs76/06/2015 12:02 PM EDTGender EhspkwezRaephl41/09/2022 2:48 PM EDTSexual BwkkzqjllnyHqlklfmp57/09/2022 2:48 PM EDTdocumented as of this encounter Plan of Treatment DateTypeDepartmentCare Team (Latest Contact Info)Ynwhwsfgkfj79/21/2025 10:30 AM ESTOffice Visit [facility] Neurology, A Department of [facility] [address] [phone] Stella Flowers, INFANT AND TODDLER TEACHER-GOLF CART REPAIRER [address] [phone] 01/05/2025 12:30 PM ESTClinical Support [facility] - ENT [address] [place] [address], [address] [place] [phone] Argentina Trivedi, [facility]-MECHANICAL EQUIPMENT TEST ENGINEER [address] [place] [address] [address] [place] [phone] 01/27/2025 4:15 PM ESTOffice Visit [facility] - ENT [address] [place] [address], [address] [place] [address] Terri [place] MD [address] [facility] [address] [place] [address] 11/24/2025 10:00 AM EDTOffice Visit [facility] Adult Endocrinology, A Department of [facility] [address] [phone] Akila Ballard MD [address] [address] NameTypePriorityAssociated DiagnosesOrder ScheduleT4, freeLabRoutine 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 1 Occurrences starting 11/27/2024 until 11/27/2025TSHLabRoutine 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 1 Occurrences starting 11/27/2024 until 11/27/2025T3, freeLabRoutine 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 1 Occurrences starting 11/27/2024 until 11/27/2025documented as of this encounter Visit Diagnoses Diagnosis 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- Primary documented in this encounter Additional Health Concerns AssessmentNoted TimePHQ-9 Depression Total Score: 3:26 PM EST documented as of this encounter Care Teams Team MemberRelationshipSpecialtyStart DateEnd Date Cas Galicia MD PCP - GeneralFamily Sshthdwr08/14/21documented as of this encounter
--- OUTSIDE RECORDS SUMMARY | 2024-12-01 11:59 | XMS_ITS | Encounter Summary ---
Author Organization [facility] Address [address] [place] [address] Care Team Providers Care Bench Scientist Name Role Phone Cas Galicia MD Primary Care Provider [phone] Reason for Visit * ReasonCommentsMed Change Request Encounter Details DateTypeDepartmentCare Team (Latest Contact Info)Ngcnmqgmswo77/27/2025Refill [facility] [address] [place] [address] Priscila Gonzalez, BRANDY [address] [place] [address] Postmenopausal HRT (hormone replacement therapy) Social History Tobacco UseTypesPacks/DayYears UsedDateSmoking Tobacco: NeverSmokeless [...] other ways by your partner or ex-partner?Patient iowmsbbb79/04/2025Within the last year, have you been kicked, [...] you get together with friends or relatives?Patient /04/2025How often do you attend sabianist or samaritan services?Patient wauadfuj78/04/2025Do you belong to any clubs or organizations such as sabianist groups, unions, fraEmbarkly or athletic groups, or school groups?No08/08/2024How often do you attend meetings of the clubs or organizations you belong to?Patient fjlyjalm45/04/2025re you , , , , never , or living with a partner?Bolbges2108/08/2024UDIT-CAnswerDate RecordedQ1: How often do you have a [...] like food, housing, medical care, and heating?Somewhat hard08/08/2024[employer] [place] [employer] - Occupational Stress QuestionnaireAnswerDate [...] pay the mortgage or rent on time?Patient dhxdeefa75/03/2024In the last 12 months, how many places have you lived?1 04/08/2023In the last 12 months, was there a time when you did not have a steady place to sleep or slept in ashelter (including now)?Patient vocndsui57/03/2024 Housing Stability Vital SignAnswerDate RecordedIn the last 12 months, was there a time when you were not able to pay the mortgage or rent on time?No08/08/2024In the past 12 months, how many times have you moved where you were living?0 08/08/2024t any time in the past 12 months, were you homeless or living in a fci (including now)?No08/08/2024CommentsNoSex and Gender Information ValueDate RecordedSex Assigned at BirthNot on fileLegal PxxSqufwq03/15/2023 6:40 PM EDTGender IdentityNot on fileSexual OrientationNot on filedocumented as of this encounter Plan of Treatment DateTypeDepartmentCare Team (Latest Contact Info)Wthjvdxytlb42/03/2026 8:20 AM EDTOffice Visit [facility] [address] [place] [phone] Jodi Holden, PONCE [address] [place] [address] 12/07/2025 2:00 PM ESTProcedure Visit [facility] [address] [facility] [place] [address] Rubens Tim, [address] [place] [address] documented as of this encounter Visit Diagnoses Diagnosis Postmenopausal HRT (hormone replacement therapy) Need for prophylactic hormone replacement therapy (postmenopausal) documented in this encounter Care Teams Team MemberRelationshipSpecialtyStart DateEnd Date Cas Galicia MD PCP - GeneralFamily Medicine04/09/23documented as of this encounter
--- OUTSIDE RECORDS SUMMARY | 2024-12-01 12:00 | XMS_ITS | Clinical Summary ---
Author Organization [facility] tem Address [id number] [address] [place] [address] Care Team Providers Care Telesales Consultant Name Role Phone Cas Galicia MD Primary Care Provider [phone] Allergies Active AllergyReactionsCriticalityNoted DateCommentsGloves, Latex With Aloe Vera 08/18/2021 Other reaction(s): Unknown ZaunccxTxavFri50/30/2012upropionOther (See Comments)06/21/2022 Reports like seizure activity and the fall asleep CefaclorAnaphylaxis,Swelling,Shortness Of HavrstVyyy50/30/2012 Other reaction(s): Unknown ClindamycinRash,Shortness Of Breath,FbsyhjehXnik30/19/2015Drospirenone-Ethinyl Pwyonbkca26/30/2012 Makers her asthma flair up Other reaction(s): Other: See Comments Skin discoloration of feet with OCPs ErythromycinShortness Of Breath,RkmdqargCpwk86/30/2012EucalyptusAnaphylaxisHigh 12/15/2020Fish Containing PxwyfmlrPfmgeIubgoj05/20/2022GatifloxacinDiarrhea 12/15/20203843BszjrbgfxZelgUrwnej97/30/2012 Due to clotting disorder-Aleve XrfdvijJnqocltbdfrVsqd05/30/2012Iodinated Contrast MediaAnaphylaxisHigh 02/23/2014 Other reaction(s): Unknown Does not tolerate with pre-medication Latex, Natural RubberSwelling,Itching,HtcaMqy4809/04/2011 Skin cracks and bleeds Lavender (Lavandula Angustifolia)TdhbymkzowrXyss81/09/2021LevofloxacinRashLow 12/15/20201918RtvavxrGdvvn53/23/5234Cwpyzdhcvxvou56/26/2022Norethindrone Ac-Eth Ktwohzupm19/30/2012 Chest hurt and legs turned black -- saw Dr. Jorge London PenicillinsItching,KtljTwa9409/04/2011Povidone-KpvslbRavwKcc39/19/2023Rofecoxib VzczEih4409/04/2011Shellfish MjiryiqSkqexDzfmnm15/20/2022ulfa (Sulfonamide Antibiotics)Shortness Of JvnsrdFyjw07/10/3047Vjmkxckepggmbuvr25/14/2022 Other reaction(s): Unknown Sulfamethoxazole-TrimethoprimOther (See Comments)High01/23/2014 Cant breathe MpkwqwbmbcysMykjgadbodvEpdp78/31/2022ZolpidemOther (See Comments)High05/24/2022 Uncontrolable limb movements Medications * This document contains information received from the source organization and may not represent a complete record from that organization. MedicationSigDispense QuantityRefillsLast FilledStart DateEnd DateStatus montelukast (SINGULAIR) 10 mg tablet Take 1 tablet (10 mg total) by mouth in the morning.Active lamoTRIgine (LaMICtal) 150 mg tablet Take 1 tablet (150 mg total) by mouth once daily at bedtime.Active cholecalciferol, vitamin D3, (VITAMIN D3 ORAL) Take 1 capsule by mouth.Active sertraline (ZOLOFT) 100 mg tablet Take 1 tablet (100 mg total) by mouth in the morning.Active fluticasone (VERAMYST) 27.5 mcg/actuation nasal spray Administer 2 sprays into each nostril once daily.Active EPINEPHrine (EPIPEN) 0.3 mg/0.3 mL auto-injector 06/05/2021ctive pantoprazole (PROTONIX) 40 mg EC tablet Take by mouth in the morning.Active albuterol (PROVENTIL HFA;VENTOLIN HFA) 90 mcg/actuation inhaler as needed.01/11/2022ctive ondansetron ODT (ZOFRAN ODT) 4 mg disintegrating tablet 01/18/2022ctive diphenhydrAMINE (BENADRYL) 25 mg capsule Take by mouth every 6 (six) hours as needed.Active levocetirizine (XYZAL) 5 mg tablet Take 1 tablet (5 mg total) by mouth every evening.Active DULoxetine (CYMBALTA) 60 mg capsule Take 1 capsule (60 mg total) by mouth nightly.3Active cyanocobalamin (VITAMIN B12) 1,000 mcg tablet, sublingual Place 1 tablet (1,000 mcg total) under the tongue in the morning. 30 tablet 3Active UBRELVY 100 mg tablet Take 100 mg by mouth once as needed (migraine) for up to 1 dose. 16 tablet 4Active magnesium gluconate (MAGONATE) 500 mg tablet tablet Take 27 mg by mouth in the morning and 27 mg before bedtime. 600 mg.Active liothyronine (CYTOMEL) 5 MCG tablet Indications: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TAKE 1 TABLET (5 MCG TOTAL) BY MOUTH IN THE MORNING. 90 tablet 5Active SYNTHROID 100 mcg tablet Indications: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TAKE 1 TABLET (100 MCG TOTAL) BY MOUTH IN THE MORNING 90 tablet 5Active ketorolac (TORADOL) 10 mg tablet Take 1 tablet (10 mg total) by mouth every 6 (six) hours as needed for pain. 20 tablet 5Active Additional Information Patient not taking.Reported on 11/24/2024 sAXagliptin (ONGLYZA) 5 mg tablet Take 1 tablet (5 mg total) by mouth in the morning.5Active pyridostigmine (MESTINON) 60 mg tablet Take 1 tablet (60 mg total) by mouth 3 (three) times a day./ Active baclofen (LIORESAL) 20 mg tablet Indications:Migraine without aura and without status migrainosus, not intractable,Trapezius muscle spasm,CervicalgiaTake 0.5-1 tablets (10-20 mg total) by mouth nightly. 90 tablet 5Active fremanezumab-vfrm (AJOVY 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) 225 mg/1.5 mL Indications:Migraine without aura and without status migrainosus, not intractableInject 1.5 mL (225 mg total) under the skin every 28 days. 4.5 mL 307/07/2025Active zonisamide (ZONEGRAN) 100 mg capsule Indications:Migraine without aura and without status migrainosus, not intractableTake 2 capsules (200 mg total) by mouth in the evening. 180 capsule 5Active potassium chloride (K-TAB,KLOR-CON) 10 MEQ CR tablet Take 1 tablet (10 mEq total) by mouth in the morning.5Active Active Problems ProblemNoted DateDiagnosed UgggZlfmlsk01/26/2022OVID- long hauler manifesting chronic neurologic kdquhmwv32/26/2022OVID- long hauler manifesting chronic nolcsyt0303/02/2021Memory tpzmzsxdawme06/26/2022rain fog03/02/2021Word finding qckvbciktm99/26/5956Xqddcrtheic56/26/2022Trapezius muscle spasm03/02/2021 Hypersomnia with sleep apnea03/02/2021spirin ubplbik6702/10/2021ost-viral awsadhgk43/06/2022 Overview (02/10/2021): Autonomic dysfunction History of ygtzuzaiswje45/06/2022Autonomic fgptimzkzem13/06/2022radycardia 12/24/2020hest pain12/24/20201789Ywinziowdm19/19/2021GERD (gastroesophageal reflux disease)12/24/20207121Cxogkfalyksuvs40/19/2021Migraine without aura and without status migrainosus, not jqcmtcckydw99/19/2021OSA (obstructive sleep apnea) 12/24/2020iabetes htdyymot07/19/2021TSD (post-traumatic stress disorder) 12/24/2020rachnoid cyst12/22/2015 Resolved Problems ProblemNoted DateDiagnosed DateResolved MiojTYUCH83/19/202105/ Encounters DateTypeDepartmentCare ZejkRsxvwbnxmna21/23/2025Orders Only 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 Adult Endocrinology, A Department of [facility] [address] [phone] Akila Ballard MD T4, free, TSH, T3, free11/24/2024 10: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 - ENT [address] [place] [address], [address] [place] [phone] Ref Prov, Not In System 10/28/2024 8:[address] [address] [place] [address], [address] [place] [phone] Terri Smith MD Chronic sinusitis (Primary Dx); Vocal cord dysfunction; Geographic tongue; Hypertrophy of both inferior nasal turbinates; Tympanosclerosis, bilateral; Severe persistent asthma without complication ([facility])10/28/2024Travel 09/22/2024Refill [facility] Neurology, A Department of [facility] [address] [address] Alina Garcia CMA 09/15/2024Refill [facility], A Department of [facility] [address] [address] Stella Flowers, DEPARTMENTAL SHIPPING CLERK[employer] Migraine without aura and without status migrainosus, not intractablefrom Last 3 Months Family History Medical HistoryRelationNameCommentsCOPDFatherRogerDiabetesFatherRogerEarly FatherRogerHeart attackFatherRogerHeart diseaseFatherRogerHyperlipidemiaFather RogerHypertensionFatherRogerVision lossFatherRogerAsthmaMotherLeilaniBrain Tumor MotherLeilaniCOPDMotherLeilaniDepressionMotherLeilaniDiabetesMotherLeilaniEarly deathMotherLeilaniHeart attackMotherLeilaniHeart diseaseMotherLeilani HyperlipidemiaMotherLeilaniHypertensionMotherLeilaniKidney diseaseMotherLeilani Mental illnessMotherLeilaniStrokeMotherLeilaniDiabetesSister 1HypertensionSister 1DiabetesSister 2Autumn RogersVision lossSister 2Autumn RogersDiabetesSister 3Na HypertensionSister 3NaRelationNameStatusCommentsFatherRogerDeceasedMotherLeilani DeceasedSister 1AliveSister 2Autumn RogersSister 3Na Social History Tobacco UseTypesPacks/DayYears UsedDateSmoking Tobacco: NeverSmokeless Tobacco: Never Tobacco Cessation:Counseling Given: Not Answered Alcohol UseStandard Drinks/WeekCommentsNot Currently0 (1 standard drink = 0.6 oz pure alcohol)PHQ-2AnswerDate RecordedTotal Dolto813/30/2023ChildcareAnswerDate IuvxignqGtxnxvdqnAjhdzjh98/12/2019EmploymentAnswerDate RecordedEmploymentUnknown 07/17/2018Hunger ScreeningAnswerDate RecordedWithin the past 12 months we worried whether our food would run out before we got money to buy more.Never True11/22/2023Within the past 12 months the food we bought just didn't last and we didn't have money to get more.Never True4Purpose - LifeAnswerDate RecordedPurpose and direction in nvjdKqdgoia32/11/2021CommentsNoSex and Gender InformationValueDate RecordedSex Assigned at WfginLvgggk66/09/2022 2:48 PM EDTLegal QhxVkopui62/06/2015 12:02 PM EDTGender HnhkwqfmTtntyp39/09/2022 2:48 PM EDTSexual FfeiziqeanxLfrgkqzq74/09/2022 2:48 PM EDT Last Filed Vital Signs Vital SignReadingTime TakenCommentsBlood Syaqadng966/7510 10:12 AM EDT Mzewy756811/24/2024 10:12 AM JESWvmsdehmazm54.6 ??C (97.9 ??F)10/28/2024 8:18 AM EDTRespiratory Acvo3316 10:12 AM EDTOxygen Gdcokpdbdc31%05/18/2021 10:24 AM EDTInhaled Oxygen Concentration--Wvgurx975.2 kg (234 lb 3.2 oz)11/24/2024 10:12 AM EZLTcngbc833.6 cm (5' 4 )11/24/2024 10:12 AM EDTBody Mass Index40.2 11/24/2024 10:12 AM EDT Plan of Treatment DateTypeDepartmentCare Team (Latest Contact Info)Bjdxvccpqdi53/21/2025 10:[address] [address] [phone] Stella Flowers, DEPARTMENTAL SHIPPING CLERK-[employer] [address] [phone] 01/05/2025 12:[address] [address] [place] [address], [address] [place] [address] [place] Trivedi [facility] [address] [place] [address] [address] [place] [phone] 01/27/2025 4:[address] [facility] [address] [place] [address], [address] [place] [address] Terri Smith MD [address] [facility] [address] [place] [address] 11/24/2025 10:[address] Adult [facility]inology, A Department of [facility] [address] [facility] [address] [place] [address] Akila Ballard MD [address] [place] [address] Health MaintenanceDue DateLast DoneCommentsAdult BMI Follow Up Plan12/20/2001 DTaP,Tdap and Td Vaccines (1 - Tdap)12/20/2002Depression Wmuoeakak16/30/2024 01/04/2023Influenza Xnfvjdo71, 11/06/2019, 10/27/2019Adult BMI Xsxcgubhe83Tobacco Xqlljcmus11Pap Smear Znahahomsbov52/10/2014 Medical Devices Not on file Procedures Procedure NamePriorityDate/TimeAssociated DiagnosisCommentsT3, FREERoutine 11/24/2024 11:00 AM EDT 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 AZLKucbwkj89/20/2025 11:00 AM EDT 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 T4, FQQWDmwckgk05/20/2025 11:00 AM EDT 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 CT SINUSES WO ZTMNZtjnohu75/26/2025 10:22 AM EDTfrom Last 3 Months Results * T3, free (11/24/2024 11:00 AM EDT)ComponentValueRef RangeTest MethodAnalysis TimePerformed AtPathologist SignatureFREE T32.652.50 - 3.90 pg/mL11/24/2024 1:55 PM [facility] LABORATORYSpecimen (Source)Anatomical Location / LateralityCollection Method / VolumeCollection TimeReceived Time BloodVenous blood / UnknownVenipuncture / Beuprgy8511/24/2024 11:00 AM EDT 11/24/2024 11:00 AM EDT Narrative Authorizing ProviderResult TypeResult StatusAkila Ballard MDWASHINGTON COUNTY [facility] BLOOD ORDERABLESFinal ResultPerforming OrganizationAddressCity/State/ZIP CodePhone Number [facility] [address] [place] [address], * TSH (11/24/2024 11:00 AM EDT)ComponentValueRef RangeTest MethodAnalysis Time Performed AtPathologist SignatureTSH0.890.49 - 4.67 uIU/mL11/24/2024 1:56 PM [facility] LABORATORYSpecimen (Source)Anatomical Location / LateralityCollection Method / VolumeCollection TimeReceived TimeBloodVenous blood / UnknownVenipuncture / Ngfxigg8911/24/2024 11:00 AM EDT1 11:00 AM EDT Narrative Authorizing ProviderResult TypeResult StatusAkila MILAN BLOOD ORDERABLESFinal ResultPerforming OrganizationAddressCity/State/ZIP CodePhone Number [address] [place] [address], * T4, free (11/24/2024 11:00 AM EDT)ComponentValueRef RangeTest MethodAnalysis TimePerformed AtPathologist SignatureFREE T40.610.61 - 1.60 ng/dL11/24/2024 1:57 PM [facility] LABORATORYSpecimen (Source)Anatomical Location / LateralityCollection Method / VolumeCollection TimeReceived Time BloodVenous blood / UnknownVenipuncture / Dutcyix6211/24/2024 11:00 AM EDT 11/24/2024 11:00 AM EDT Narrative Authorizing ProviderResult TypeResult StatusAkila MILAN BLOOD ORDERABLESFinal ResultPerforming OrganizationAddressCity/State/ZIP CodePhone Number [address] [place] [address], * CT sinuses without contrast (10/31/2024 10:22 AM EDT)Anatomical Region LateralityModalityNeuro, Face, Neuro CoveraN/AComputed Tomography Narrative Authorizing ProviderResult TypeResult StatusNot In System Ref ProvIMG CT ORDERABLESFinal Result from Last 3 Months Insurance * Guarantor: Vijaya Tran TypeRelation to PatientDate of BirthPhone Billing AddressPersonal/IttddeXwix38/15/1986 [address] [address] MemberSubscriberPlan / Payer (Effective 2022-Present)Name:Vijaya Tran Member ID:[id number] Relation to Subscriber:SelfName:Vijaya Tran Subscriber ID:[id number] Payer ID:[id number] (NAIC) Type:Not on file Address[address] MemberSubscriberPlan / Payer (Effective 2024-Present)Name:Vijaya Tran Relation to Subscriber:SpouseName:VINNY TRNA Date of :1986 Address: [address] [address] Payer ID:[id number] (NAIC) Type:Not on file Address: [address] [place] [phone] Care Teams Team MemberRelationshipSpecialtyStart DateEnd Date Cas Galicia MD PCP - GeneralFamily Kjukmoqf65/14/21
--- OUTSIDE RECORDS SUMMARY | 2024-12-01 12:00 | XMS_ITS | Clinical Summary ---
Author Organization [facility] Address [address], [address] [place] [address] Care Team Providers Care Inserter Promotional Item Name Role Phone Cas Galicia MD Primary Care Provider + Allergies Active AllergyReactionsCriticalityNoted DateCommentsZolpidemOther (See Comments) 06/21/2022 Muscle spasms PmnfgyfTrhnXxu23/30/2012CefaclorShortness Of XreutrWwpy21/30/2012Cefuroxime MsvhqdPkyvSml87/30/2012Clindamycin/EdeirdfrigByfiUxe69/30/2012Erythromycin Shortness Of NirzggEktg69/30/2012Eucalyptus Oil10/23/2020GatifloxacinDiarrhea 12/15/20209942MlfajbdEibrifubywtCzmf16/30/2012LatexSwelling,EsvwIri7309/04/2011 Lavender AilYwgztvbpqudLaxy19/09/2021Ibuprofen DzzgyovykcWkwtdy66/30/2012 Due to clotting disorder-Aleve Norethindrone-Eth Wklmrddpt35/30/2012 Chest hurt and legs turned black -- saw Dr. Jorge London DrwoivwygqrVixwPkh75/30/2012Shellfish Protein-Containing Drug ProductsHives,Rash Low01/08/2022ulfa Rsbhevshndi84/14/2016ValacyclovirShortness Of BreathHigh 12/21/20217982HbhyvmoStpaq36/23/3045Pqwwe71/30/2012upropionOther (See Comments) 06/21/2022 Reports like seizure activity and the fall asleep Drospirenone-Ethinyl Msbkgztfb57/30/2012 Makers her asthma flair up Medications MedicationSigDispense QuantityRefillsLast FilledStart DateEnd DateStatus diphenhydrAMINE (BENADRYL) 50 MG capsule Take 1 capsule by mouth every 6 hours as needed for Itching or SleepActive sertraline (ZOLOFT) 100 MG tablet Take 1 tablet by mouth dailyActive lamoTRIgine (LAMICTAL) 150 MG tablet Take 1 tablet by mouth dailyActive EPINEPHrine (EPIPEN 2-ERMA) 0.3 MG/0.3ML SOAJ injection Inject 0.3 mLs into the muscle once as needed (severe allergic reaction) 2 each ctive zonisamide (ZONEGRAN) 100 MG capsule Take 2 capsules by mouth dailyActive Ubrogepant (UBRELVY) 100 MG TABS Take 100 mg by mouth once as xlqmnr0108/24/2021ctive B-12, Methylcobalamin, 1000 MCG SUBL DISSOLVE 1 TABLET UNDER THE TONGUE ONCE DAILY08/11/2021ctive fluticasone (VERAMYST) 27.5 MCG/SPRAY nasal spray 2 sprays by Nasal route dailyActive D-5000 125 MCG (5000 UT) TABS tablet TAKE 1 TABLET BY MOUTH EVERY DAY08/03/2021ctive DULoxetine (CYMBALTA) 30 MG extended release capsule Take 2 capsules by mouth dailyActive albuterol sulfate HFA (PROVENTIL;VENTOLIN;PROAIR) 108 (90 Base) MCG/ACT inhaler Inhale 1 puff into the lungs every 6 hours as needed for Wheezing 18 g ctive acetaminophen (TYLENOL) 500 MG tablet Take 1 tablet by mouth every 6 hours as needed for Pain 30 tablet 01/30/2022ctive AJOVY 225 MG/1.5ML SOAJ 01/17/2022ctive levothyroxine (SYNTHROID) 100 MCG tablet Take 1 tablet by mouth Daily02/22/2022ctive Levocetirizine Dihydrochloride (XYZAL PO) Take by mouth in the morning and at bedtimeActive baclofen (LIORESAL) 10 MG tablet Take 2 tablets by mouth at bedtime 10-20 mg nightlyActive azelastine (ASTELIN) 0.1 % nasal spray 1 spray by Nasal route 2 times daily Use in each nostril as directedActive pyRIDostigmine (MESTINON) 180 MG extended release tablet Take 1 tablet by mouth 2 times dailyActive calcium carbonate (TUMS) 500 MG chewable tablet Take 2 tablets by mouth 2 times daily as neededActive pantoprazole (PROTONIX) 40 MG tablet TAKE 1 TABLET BY MOUTH EVERY DAY BEFORE BREAKFAST 90 tablet 5Active Additional Information Patient not taking.Reported on 09/18/2024 Magnesium Glycinate 100 MG CAPS Take by mouthActive montelukast (SINGULAIR) 10 MG tablet Take 1 tablet by mouth nightly 30 tablet 5Active tiotropium-olodaterol (STIOLTO RESPIMAT) 2.5-2.5 MCG/ACT AERS Inhale 2 puffs into the lungs daily 1 each 605Active Additional Information Patient not taking.Reported on 09/18/2024 liothyronine (CYTOMEL) 5 MCG tablet Take 1 tablet by mouth daily5Active sAXagliptin (ONGLYZA) 5 MG TABS tablet Take 1 tablet by mouth dailyActive Active Problems ProblemNoted DateDiagnosed DateRSV (respiratory syncytial virus infection) 2Adenovirus oqqshthvh71/06/2022Acute asthma jorbnkugmyuf44/06/2022 Diabetes ivsouexv90/05/2022Asthma exacerbation qukheeg99/04/2022Abdominal pain, acute, right lower olcbnqqo27/24/2012 Encounters DateTypeDepartmentCare GuwlIizhejwetfg57/14/2025 10:45 AM EDTOffice Visit [facility] Part of [address] [address] Nabor Yancey, LEVEE SUPERINTENDENT - LEAD PONY RIDER Multiple environmental allergies (Primary Dx); Moderate persistent asthma without complication; Chronic sinusitis, unspecified location; KATELIN (obstructive sleep apnea)[facility] Part of [address] [address] Nabor Yancey, LEVEE SUPERINTENDENT - LEAD [employer] RIDER 09/18/2024b[facility] [place] [facility] Part of [place] [address] Nabor Yancey, LEVEE SUPERINTENDENT - LEAD PONY RIDER 09/16/2024Orders Only [facility] [place] [phone] Loraine Ponce MA Moderate persistent asthma without iguxqohworve38/12/2025bstract [facility] Part of [address] [address] David Mcclure MD from Last 3 Months Immunizations ImmunizationAdministration DatesNext DueInfluenza Virus Qgxwfgd3811/20/2019 Family History Medical HistoryRelationNameCommentsDiabetesFatherHeart DiseaseFatherHypertension FatherDiabetesMotherHypertensionMotherRelationNameStatusCommentsFatherDeceased MotherDeceased Social History Tobacco UseTypesPacks/DayYears UsedDateSmoking Tobacco: NeverSmokeless Tobacco: Never Tobacco Cessation:Counseling Given: Not Answered Alcohol UseStandard Drinks/WeekCommentsNo0 (1 standard drink = 0.6 oz pure alcohol)PHQ-2AnswerDate RecordedPHQ-9 Total Jltki4434/20/2022Interpersonal Safety Domain Source: IP Abuse ScreeningAnswerDate RecordedRead-Only, Retired: Physical PrybyHhkidt79/13/2023Read-Only, Retired: Verbal PsseaFbnkja95/13/2023 Read-Only, Retired: Emotional znsvfInwucx96/13/2023Read-Only, Retired: Financial RvryaGazbmc94/13/2023Read-Only, Retired: Sexual mmwdmGmpqao96/13/2023 CommentsNoSex and Gender InformationValueDate RecordedSex Assigned at BirthNot on fileLegal GddLinvkx90/10/2013 10:07 AM ESTGender IdentityNot on fileSexual OrientationNot on fileOccupationIndustryJob Start DateJob End Dateregistered nurseNot on fileNot on fileNot on file Last Filed Vital Signs Vital SignReadingTime TakenCommentsBlood Silkjslw377/6408 11:02 AM EDT Xqxni365309/18/2024 11:02 AM NGHQkhgyousfah59.4 ??C (97.5 ??F)09/18/2024 11:02 AM EDTRespiratory Lull659909/18/2024 11:02 AM EDTOxygen Wkmgyymkgf58%09/18/2024 11:02 AM EDTInhaled Oxygen Concentration--Lyiifo430.4 kg (225 lb 12.8 oz)09/18/2024 11:02 AM OPUVwmmwq431.6 cm (5' 4 )09/18/2024 11:02 AM EDTBody Mass Index38.76 09/18/2024 11:02 AM EDT Plan of Treatment DateTypeDepartmentCare Team (Latest Contact Info)Luqlglkqebk88/12/2026 9:45 AM ESTOffice Visit [facility] Part of [address] [address] David Mcclure MD [address] [place] [address] KATELIN; 6 mth follow up with [facility] DateLast Done CommentsDiabetic foot exam12/20/19935382Rbsfox51/15/1994Depression Vntgow2412/21/1995 Varicella vaccine (1 of 2 - 13+ 2-dose series)12/20/1996HIV mtaqeh1812/20/1998 Diabetic Alb to Cr ratio (uACR) test12/20/2001Diabetic retinal exam12/20/2001 Hepatitis C gjpvma1412/20/2001DTaP/Tdap/Td vaccine (1 - Tdap)12/20/2002Hepatitis B vaccine (1 of 3 - 19+ 3-dose series)12/20/2002Pneumococcal 0-49 years Vaccine (1 of 2 - PCV)12/20/2002A1C test (Diabetic or Prediabetic)/06/2021, 09/09/2011GFR test (Diabetes, CKD 3-4, OR last GFR 15-59)/, 01/30/2022, 01/09/2022, Additional history existsBreast cancer tfllhv4812/21/2023 Flu vaccine (#1), 11/06/2019, 10/27/2019COVID-19 Vaccine ( season)5Cervical cancer screenDiscontinuedPap smear Bacpzsotecdh26/10/2014, 02/23/2012Diabetes ddiszoEwgmvgssrfax16/05/2022, 09/09/2011, 09/09/2011HPV (without or with Pap)DiscontinuedHPV vaccine (No Doses Required)CompletedHepatitis A vaccineAged OutNo longer eligible based on patient's age to complete this topicHib vaccineAged OutNo longer eligible based on patient's age to complete this topicMeningococcal (ACWY) vaccineAged OutNo longer eligible based on patient's age to complete this topicMeningococcal B vaccineAged OutNo longer eligible based on patient's age to complete this topic Polio vaccineAged OutNo longer eligible based on patient's age to complete this topic Procedures Procedure NamePriorityDate/TimeAssociated DiagnosisCommentsBASIC METABOLIC PANEL STAT102/17/2022 4:10 PM EST HEMOGLOBIN V9ZXthjrcw63/05/2022 5:40 AM EST PLANER OFFBEARER YKVECOIQEuyzsdc01/10/2014 10:13 AM EST from Last 3 Months or Most Recently Relevant to Health Maintenance Results * (ABNORMAL) Basic Metabolic Panel (12/18/2022 4:10 PM EST)ComponentValueRef RangeTest MethodAnalysis TimePerformed AtPathologist XzadjlgqmXvntbz910454 - 144 mmol/L102/17/2022 4:10 PM [facility] LABPotassium4.0 3.7 - 5.3 mmol/L102/17/2022 4:10 PM [facility] LABChloride [address]25 - 107 mmol/L102/17/2022 4:10 PM [facility] FZHIK263 20 - 31 mmol/L102/17/2022 4:10 PM [facility] LABAnion Gap 109 - 17 mmol/L102/17/2022 4:10 PM [facility] KWKRhqgmyu32 70 - 99 mg/dL12/18/2022 4:10 PM [facility] UOKTLL040 - 20 mg/dL12/18/2022 4:10 PM [facility] LABCreatinine1.0(H)0.5 - 0.9 mg/dL12/18/2022 4:10 PM [facility] LABEst, Glom Filt Rate>60>60 mL/min/1.32x51512/18/2022 4:10 PM [facility] LABComment: ? These results are not intended for use in patients <18 years of age. ? eGFR results are calculated without a race factor using the 2020 CKD-EPI equation. Careful clinical correlation is recommended, particularly when comparing to results calculated using previous equations. The CKD-EPI equation is less accurate in patients with extremes of muscle mass, extra-renal metabolism of creatine, excessive creatine ingestion, or following therapy that affects renal tubular secretion. BUN/Creatinine Avclv476 - 4:10 PM [facility] LABCalcium9.58.6 - 10.4 mg/dL12/18/2022 4:10 PM [facility] LABSpecimen (Source)Anatomical Location / LateralityCollection Method / Volume Collection TimeReceived TimeBloodBLOOD SPECIMEN / Rzaytjk2012/18/2022 4:10 PM EST 12/18/2022 4:21 PM EST Narrative Authorizing ProviderResult TypeResult StatusMelissa Arnold MDCHEMISTRY ORDERABLES Final ResultPerforming OrganizationAddressCity/State/ZIP CodePhone Number [facility] [address] [place] [address], [facility] [phone] * Hemoglobin A1c (01/09/2022 5:40 AM EST)ComponentValueRef RangeTest Method Analysis TimePerformed AtPathologist SignatureHemoglobin A1C5.74.0 - 6.0 % 01/09/2022 5:40 AM ESTMERValeo Medical LABORATORIESEstimated Avg Nwwmqkq833ab/dL 01/09/2022 5:40 AM [facility] LABORATORIESComment: The ADA and AACC recommend providing the estimated average glucose result to permit better patient understanding of their HBA1c result. Specimen (Source)Anatomical Location / LateralityCollection Method / Volume Collection TimeReceived Time12/06/2021 5:40 AM EST01/09/2022 12:31 PM EST Narrative Authorizing ProviderResult TypeResult StatusShirnoah Rosado LEVEE SUPERINTENDENT - LEAD PONY RIDER CHEMISTRY ORDERABLESFinal ResultPerforming OrganizationAddressCity/State/ZIP CodePhone Number [facility] [address] [place] [address], [facility] [phone] [employer] [address] [place] [address] [phone] * PLANER OFFBEARER Cytology (03/17/2013 10:13 AM EST)ComponentValueRef RangeTest Method Analysis TimePerformed AtPathologist SignatureCytology Report(NOTE) [id number] [facility] ??LABORATORIES CONSULTING PATHOLOGIST [facility] ANATOMIC PATHOLOGY [address] [place] [address]. ??[place], [place] [address] GYNECOLOGIC CYTOLOGY REPORT Patient Name: VIJAYA TRAN MR#: [id number] Specimen #[id number] Final Diagnosis CERVICAL MATERIAL, (THIN PREP VIAL): Specimen Adequacy: ?Satisfactory for evaluation. ?- Paucity/absence of endocervical transformation zone component. Descriptive Diagnosis: ?Negative for intraepithelial lesion or malignancy. TANYA Luna(ASCP) Electronically Signed Out dg03/21/2013 Source: 1: CERVICAL MATERIAL, (THIN PREP VIAL)03/21/2013 12:00 AM [facility] LABSpecimen (Source)Anatomical Location / LateralityCollection Method / VolumeCollection TimeReceived Time03/17/2013 10:13 AM EST03/17/2013 10:13 AM EST Narrative Authorizing ProviderResult TypeResult StatusJennifer Glance DOPATHOLOGY/CYTOLOGY ORDERABLESFinal ResultPerforming OrganizationAddressCity/State/ZIP CodePhone Number [facility] [address] [place] [address], [facility] [phone] from Last 3 Months or Most Recently Relevant to Health Maintenance Insurance * Guarantor: Vijaya TranKrishna TypeRelation to PatientDate of PhoneBilling AddressPersonal/DfidvoOnto14/15/1986 [address] [address] Advance Directives TypeDate RecordedPatient RepresentativeExplanationACP-Advance Oteeechsp19/8/2022 2:29 PMACP-Power of Dtwkfnoe45/8/2022 2:29 PM * Full Code (Latest Code Status on File) Date ActivatedDate VyhocysaykdFbgdddue04/4/2022 5:06 PM01/11/2022 3:07 PM * Full Code Date ActivatedDate WpexlipockmPxzxhyux36/24/2012 10:09 AM12/31/2011 4:00 PM NameRelationshipHealthcare Agent RelationshipCommunicationJustin WilliamsSpouse Primary Decision Maker* * Care Teams Team MemberRelationshipSpecialtyStart DateEnd Date Cas Galicia MD [facility]09/04/11
--- OUTSIDE RECORDS SUMMARY | 2024-12-01 12:00 | XMS_ITS | Clinical Summary ---
Author Organization [facility] Address [address] [place] [address] Care Team Providers Care Marble Installer Supervisor Name Role Phone Cas Galicia MD Primary Care Provider [phone] Allergies Active AllergyReactionsCriticalityNoted XmkbHryukpctMcqvafys56/19/2023Aspirin OqxtUuy6609/04/2011 Other reaction(s): Angioedema, Unknown, Unknown Xkqklrtje82/17/2023 Other reaction(s): Other (See Comments) Reports like seizure activity and the fall asleep Reports like seizure activity and the fall asleep CefaclorAnaphylaxis,Shortness of breath,IzuimzlzMhtr81/30/2012 Other reaction(s): Unknown, Unknown Other reaction(s): Unknown Other reaction(s): Unknown Cefuroxime AxetilRash,Shortness of jtnfaaCsut28/30/2012ClindamycinRash,Shortness of breath,PhrotgztXliq03/19/2015 Other reaction(s): Unknown, Unknown Liclzpycbvz02/02/2023Drospirenone-Ethinyl Bsrbsizyb02/30/2012 Other reaction(s): Other: See Comments Makers her asthma flair up Other reaction(s): Other: See Comments Skin discoloration of feet with OCPs Skin discoloration of feet with OCPs Makers her asthma flair up Edycctmgprco68/02/2130FnnqvkdwnuZtsenbrvoarQlox44/18/2021Fish Containing AuufgmmvIxspaDmrwby05/20/4748MtghfqmotjouNaatnddo18/16/2015Gloves, Latex With Aloe Vera08/18/2021 Other reaction(s): Unknown BuguzqippFmpqLgfovn22/30/2012 Other reaction(s): Unknown, Unknown Due to clotting disorder-Aleve Due to clotting disorder-Aleve PekzruzLedqpbqozxiAukg30/30/2012Iodinated Contrast MediaAnaphylaxisHigh 02/23/2014 Other reaction(s): Unknown Does not tolerate with pre-medication Tolerated with pre-medication on 09/22/21 Other reaction(s): Unknown Does not tolerate with pre-medication Pbvkkm5905/24/2022 Other reaction(s): Unknown Latex, Natural RubberItching,Rash,UrfvxhyaZvi79/30/2012 Other reaction(s): Unknown Skin cracks and bleeds Skin cracks and bleeds Lavender (Lavandula Angustifolia)ZlmpfyathohKztm25/09/2021evofloxacinRashLow 11/11/2020Macrolide AntibioticsShortness of breath,VkgpkjyzFvyy50/30/2012 Other reaction(s): Allergy, Unknown, Unknown XzpugidZmcjb04/23/8928Prqstuas75/02/2021 Other reaction(s): Angioedema Norethindrone Ac-Eth Nyvikyjyv36/30/2012 Chest hurt and legs turned black -- saw Dr. Jorge London Chest hurt and legs turned black -- saw Dr. Jorge London PenicillinsItching,CkzpHok1209/04/2011 Other reaction(s): Unknown, Unknown, Unknown Povidone-WfmydfEsooDwd24/19/0264RqjoxiggrPqirXvf89/30/2012 Other reaction(s): Unknown Shellfish PiscyejAwnqjLxblfc37/20/2022ulfa (Sulfonamide Antibiotics)Shortness of breath,CfncmmrgOpge24/14/2016 Other reaction(s): Unknown Other reaction(s): Unknown Sulfamethoxazole-ChisagrywdomNzhd50/19/2014 Other reaction(s): Other Cant breathe ValacyclovirAnaphylaxis,Shortness of euzdcxXyyl57/31/2022 Medications MedicationSigDispense QuantityRefillsLast FilledStart DateEnd DateStatus albuterol 90 mcg/actuation inhaler every 4 (four) hours.01/11/2022ctive EPINEPHrine 0.3 mg/0.3 mL injection syringe INJECT 0.3 MLS INTO THE MUSCLE ONCE NEEDED (SEVERE ALLERGIC REACTION) 06/04/2021ctive fluticasone (Flonase Sensimist) 27.5 mcg/actuation nasal spray 2 sprays in the morning and at bedtime.Active fremanezumab (Ajovy) 225 mg/1.5 mL auto-injector Inject 225 mg under the skin every 30 (thirty) days.10/19/2021ctive lamoTRIgine (LaMICtal) 150 mg tablet 1 tablet at bedtime.12/16/2021ctive levalbuterol (Xopenex) 45 mcg/actuation inhaler Inhale 1-2 puffs every 4 (four) hours if needed.10/31/2021ctive MAGNESIUM ORAL Take 800 mg by mouth in the morning.Active mecobalamin, vitamin B12, 1,000 mcg tablet,disintegrating in the morning.04/05/2021ctive montelukast (Singulair) 10 mg tablet Take 10 mg by mouth in the morning.01/19/2014ctive ondansetron ODT (Zofran-ODT) 4 mg disintegrating tablet ondansetron 4 mg disintegrating qtlfdu6701/18/2022ctive sertraline (Zoloft) 50 mg tablet Take 100 mg by mouth in the morning.06/11/2019Active ubrogepant (Ubrelvy) 100 mg tablet TAKE 1 TABLET BY MOUTH AT ONSET OF MIGRAINE. MAY REPEAT IN 2 HOURS NEEDED. MAX 2 TABLET IN 24 HOURS08/24/2021ctive zonisamide (Zonegran) 100 mg capsule Take 200 mg by mouth at bedtime.05/02/2022ctive DULoxetine (Cymbalta) [address] capsule 60 mg.01/28/2022ctive cholecalciferol (Vitamin D3) 25 MCG (1000 units) tablet Take 1,000 Units by mouth in the morning.Active diphenhydrAMINE 25 mg capsule Take by mouth every 6 (six) hours if needed for itching.Active levothyroxine (Synthroid) 100 mcg tablet Take 100 mcg by mouth before breakfast.Active salicylic acid (COMPOUND W TOP) Apply topically. Estradiol and ProgesteroneActive prasterone, DHEA, (DHEA ORAL) Take by mouth.Active pyridostigmine (Mestinon) 180 mg ER tablet Indications:Autonomic dysfunctionTAKE 1 TABLET (180 MG) BY MOUTH IN THE MORNING AND AT BEDTIME. DO NOT CRUSH OR CHEW. 180 tablet 4Active tiotropium-olodateroL (Stiolto Respimat) 2.5-2.5 mcg/actuation mist inhaler Inhale 2 puffs.5Active sAXagliptin (Onglyza) 5 mg tablet 5Active magnesium oxide (Mag-Ox) 400 mg tablet 400 mg if needed.Active ketorolac (Toradol) 10 mg tablet Take 10 mg by mouth every 6 (six) hours if needed.05/06/2024tive hydrocortisone 2.5 % cream Apply topically if needed in the morning and at bedtime.07/08/2024tive liothyronine (Cytomel) 5 mcg tablet take 1 tablet (5 mcg total) by mouth in the morning.Active medical supply, miscellaneous (MISCELLANEOUS CREAMS TOP) Apply topically. Compounded estradiol and progesterone creamActive Active Problems ProblemNoted DateDiagnosed DateAbnormal urine qwqhijmt46 Uhsqrzcsauvqlh65yspareunia in mnbcgd28ross jjdhkrhah63idney stoneOvarian cyst Right inguinal itoiss59Stress incontinence Vitamin D hsjlssvdal70Urethral stricture Implantable loop recorder ddcmppa7807/17/2022Syncope and muczauwt11/19/2023 Overview (05/24/2022): Added automatically from request for surgery [id number] Qualitative platelet qbupexoi77/27/2023denovirus rpyoriibv05 RSV (respiratory syncytial virus infection)alpitations Orthostatic wzmbizmnxul24/19/2022iffuse pain08/23/2021 01/01/2023Moderate persistent asthma without upfippyrpvej12/20/2022llergic reaction to contrast dyedverse food kpxmvevb35/20/2022 01/01/2023lood pressure docmgdnypmq93/19/2022hysical iwabvqbguyvgxg35/19/2022 01/01/2023Orthostatic npuppdvnigfiuaa46Transient diplopia Subjective muscle xahizpqg99nxiety 03/02/2021Hypersomnia with sleep apnea03/02/2021hronic fhfv-YPSRX-93 syndrome 0089Fzuxljtyfkl55rain fogWord finding zsuyloexgi22Trapezius muscle spasm Autonomic zcrbohraipv00/06/2022History of tacjsvagdrfl97/06/2022spirin allergy TSD (post-traumatic stress disorder)12/24/2020iabetes dbvwtrqa90/19/2021Migraine without aura and without status migrainosus, not /19/2021OSA (obstructive sleep apnea)1Bradycardia hest painllergic hqbaoqbl03/16/2016 Mgcele0712/22/2015Gastroesophageal reflux xcravyh9412/22/2015Hearing loss12/22/2015 Byaujbraecvdmm88/16/2016Irritable bowel uqajqoil60/16/2016Arachnoid cyst eneralized gxiaysqd95Encounter for long- term (current) use of fgrgedj263Primary hypothyroidism rachnoid cyst of pituitary gland04/07/2015Bleeding disorder 02/23/2014bdominal pain, acute, right lower lbdyuqtl12 Encounters DateTypeDepartmentCare LzsyUonuvgixscl51/22/2025 8:30 AM EDTAncillary Procedure [facility] [address] [place] [phone] Awareness of /21/2025Orders Only [facility] [address] [place] [address] Halima Morris MD 10/27/2024 11:20 AM EDTAncillary Procedure [facility] [address] [place] [address] Awareness of /21/2025Orders Only [facility] [address] [place] [phone] Halima Morris MD 09/25/2024 11:10 AM EDTAncillary Procedure [facility] [address] [place] [address] Awareness of hpbymaetid56/20/2025Orders Only [facility] [address] [place] [phone] Halmia Morris MD from Last 3 Months Family History Medical HistoryRelationNameCommentsHeart attackFatherTim(biological father)Heart diseaseFatherTim(biological father)57Heart failureFatherTim(biological father) Heart murmurFatherTim(biological father)HyperlipidemiaFatherTim(biological father)CancerMaternal GrandfatherJamesAortic aneurysmMaternal YhmfhyfrjydWzw52 CancerMaternal GrandmotherSueAsthmaMotherLeilaniCancerMotherLeilaniCoronary artery diseaseMotherLeilaniDiabetesMotherLeilaniDiabetes type IIMotherLeilani Heart kckehvAqhpmfIuylhbr43Rzvnz diseaseMotherLeilaniHeart failureMotherLeilani HyperlipidemiaMotherLeilaniHypertensionMotherLeilaniKidney diseaseMotherLeilani Skin cancerMotherLeilaniStrokeMotherLeilanipituitary tumorMotherLeilani Cesar's thyroiditisMother's Sister 1StrokeMother's Sister 2LisaThyroid diseaseMother's Sister 3LoriStrokeMother's Sister 4LisaThyroid diseaseMother's Sister 5LoriCancerPaternal GrandmotherTims motherDiabetes type IISisterAutumn HypertensionSisterAutumnFaintingSon 1POTSSon 1AsthmaSon 2RelationNameStatus CommentsFatherTim(biological father)DeceasedMaternal GrandfatherJamesAlive Maternal GrandmotherSueAliveMotherLeilaniDeceasedMother's Sister 1Mother's Sister 2LisaAliveMother's Sister 3LoriAliveMother's Sister 4LisaAliveMother's Sister 5LoriAlivePaternal GrandmotherTims motherAliveSisterAutumnSon 1AliveSon 2 AliveSon 3Alive Social History Tobacco UseTypesPacks/DayYears UsedDateSmoking Tobacco: NeverPassive Smoke Exposure: NeverSmokeless Tobacco: Never Tobacco Cessation:Counseling Given: Not [...] sexual activity by your part ner or ex-partner?No01/10/2023HQ-2AnswerDate RecordedPatient Health Questionnaire-2 Vljsk860Exercise Vital SignAnswerDate RecordedOn average, how many days [...] CommentsNoSex and Gender InformationValueDate RecordedSex Assigned at IbgxoGjljxt43/22/2025 9:10 PM EDTLegal UcsZgcdxq50/30/2022 1:25 PM EDTGender OeloftsbGycudz32/22/2025 9:10 PM EDTSexual OrientationHeterosexual or Straight 09/26/2024 9:10 PM EDT Last Filed Vital Signs Vital SignReadingTime TakenCommentsBlood Ueyhptfx592/6001/10/2023 12:23 PM EST Emlzh252201/10/2023 12:23 PM ESTTemperature--Respiratory Petz386206/27/2022 9:43 AM EDTOxygen Etjhrviqtq92%01/01/2023 2:51 PM ESTInhaled Oxygen Concentration-- Rxeouh150 kg (227 lb)08/12/2024 2:49 PM FYNMrvzfv887.6 cm (5' 4 )08/12/2024 2:49 PM EDTBody Mass Index38.9608/12/2024 2:49 PM EDT Plan of Treatment Health MaintenanceDue DateLast DoneCommentsDiabetes: Retinopathy Screening 12/20/1993Varicella Vaccines (1 of 2 - 13+ 2-dose series)12/20/1996Diabetes: Urine Protein Jvkvtergf10/15/2003Hepatitis B Vaccines (1 of 3 - 19+ 3-dose series)12/20/2002Pneumococcal Vaccine: Pediatrics (0 to 5 Years) and At-Risk Patients (6 to 64 Years) (1 of 2 - PCV)12/20/2002Adult Psgabnj4512/20/2005HPV Vaccines (1 - 3-dose SCDM series)12/20/2010HPV/Ouwutg3812/20/2013Cervical Cancer Zaqwoxtkm72/10/2017Pap Smear03/17/Diabetes: Hemoglobin A1C /8041Mlctibwgs29/15/2024OVID-19 Vaccine (1 - season) 2024Influenza Vaccine (#1), 11/06/2019, 10/27/2019 Depression Kkdltreot61Zoster Vaccines (1 of 2)12/20/2033HIB VaccinesAged OutNo longer eligible based on patient's age to complete this topic IPV VaccinesAged OutNo longer eligible based on patient's age to complete this topicMeningococcal B VaccineAged OutNo longer eligible based on patient's age to complete this topicMeningococcal VaccineAged OutNo longer eligible based on patient's age to complete this topicRotavirus VaccinesAged OutNo longer eligible based on patient's age to complete this topic Medical Devices ImplantedTypeAreaManufacturerDevice IdentifierShelf Expiration DateModel / Serial / LotMonitor,Cardiac,Biomonitor Iii - [id number] - [id number] Implanted:Qty: 1 on 06/27/2022 by Stephon [id number] / [id number] / Procedures Procedure NamePriorityDate/TimeAssociated DiagnosisCommentsCARDIAC DEVICE CHECK CHECK - PACNTGMxmxxzv84/23/2025 12:14 PM EDT Awareness of heartbeats CARDIAC DEVICE CHECK - REMOTE - LOOP RECORDER (ILR)Xlmvbyy0311/25/2024 12:00 AM EDTCARDIAC DEVICE CHECK CHECK - XYYOOAOixpuko61/25/2025 10:15 AM EDT Awareness of heartbeats CARDIAC DEVICE CHECK - REMOTE - LOOP RECORDER (ILR)Mspmypp2410/26/2024 12:00 AM EDTCARDIAC DEVICE CHECK CHECK - NTHTKVGcbvstt39/22/2025 10:33 AM EDT Awareness of heartbeats CARDIAC DEVICE CHECK - REMOTE - LOOP RECORDER (ILR)Rofqsnl5509/24/2024 12:00 AM EDTfrom Last 3 Months Results * CARDIAC DEVICE CHECK - REMOTE - LOOP RECORDER (ILR) (11/27/2024 12:14 PM EDT) Only the most recent of3 resultswithin the time period is included. Specimen (Source)Anatomical Location / LateralityCollection Method / Volume Collection TimeReceived Time Narrative Authorizing ProviderResult TypeResult StatusPaines Rubén MDCV IMPLANTABLE CARDIAC DEVICE PROCEDURESFinal ResultPerforming OrganizationAddressCity/State/ZIP Code Phone Number CPACS * Cardiac device check - Remote loop recorder (ILR) (11/25/2024 12:00 AM EDT) Only the most recent of3 resultswithin the time period is included. Anatomical RegionLateralityModalityOtherSpecimen (Source)Anatomical Location / LateralityCollection Method / VolumeCollection TimeReceived Time11/25/2024 Narrative Authorizing ProviderResult TypeResult StatusSabaylee Jaky Morris [facility] [place] IMPLANTABLE CARDIAC DEVICE PROCEDURESFinal Result from Last 3 Months Insurance * Guarantor: Vijaya Tran TypeRelation to PatientDate of BirthPhone Billing AddressPersonal/CnorvdRont33/15/1986 [address] [address] Care Teams Team MemberRelationshipSpecialtyStart DateEnd Date Cas Galicia MD [address] [place] [address] PCP - General02/17/22
--- OUTSIDE RECORDS SUMMARY | 2024-12-01 12:00 | XMS_ITS | Clinical Summary ---
Author Organization [facility] Address [address] [place] [address] Phone Care Team Providers Care Valuer Name Role Phone Cas Galicia MD Primary Care Provider + Social History Tobacco UseTypesPacks/DayYears UsedDateSmoking Tobacco: Never Assessed CommentsUnknownSex and Gender InformationValueDate RecordedSex Assigned at Not on fileLegal EsoHpvkjo52/25/2022 4:23 PM ESTGender IdentityNot on fileSexual OrientationNot on file Plan of Treatment Not on file Care Teams Team MemberRelationshipSpecialtyStart DateEnd Date Cas Galicia MD PCP - General05/11/15
--- OUTSIDE RECORDS SUMMARY | 2024-12-01 12:00 | XMS_ITS | Encounter Summary ---
Author Organization [facility] Address [address] [place] [address] Care Team Providers Care Integrated Campaign Manager Name Role Phone Cas Galicia MD Primary Care Provider [phone] Encounter Details DateTypeDepartmentCare Team (Latest Contact Info)Pclwyyefkep59/21/2025Orders Only [facility] [address] [place] [address] Halima Morris MD [address] [place] [address] Social History Tobacco UseTypesPacks/DayYears UsedDateSmoking Tobacco: NeverPassive [...] your partner or ex-partner?No01/10/2023HQ-2AnswerDate RecordedPatient Health Questionnaire-2 Vrqkt696Exercise Vital SignAnswerDate RecordedOn average, how many days [...] CommentsNoSex and Gender InformationValueDate RecordedSex Assigned at BrbwiQpiofu51/22/2025 9:10 PM EDTLegal XkzQsjmdk60/30/2022 1:25 PM EDTGender AzetlwtdPkujsn32/22/2025 9:10 PM EDTSexual OrientationHeterosexual or Straight 09/26/2024 9:10 PM EDTdocumented as of this encounter Plan of Treatment Not on file documented as of this encounter Procedures Procedure NamePriorityDate/TimeAssociated DiagnosisCommentsCARDIAC DEVICE CHECK - REMOTE - LOOP RECORDER (ILR)Olfqohe6311/25/2024 12:00 AM EDTdocumented in this encounter Results * Cardiac device check - Remote loop recorder (ILR) (11/25/2024 12:00 AM EDT) Anatomical RegionLateralityModalityOtherSpecimen (Source)Anatomical Location / LateralityCollection Method / VolumeCollection TimeReceived Time11/25/2024 Narrative Authorizing ProviderResult TypeResult StatusSabaylee Morris [facility] [place] IMPLANTABLE CARDIAC DEVICE PROCEDURESFinal Result documented in this encounter Visit Diagnoses Not on filedocumented in this encounter Care Teams Team MemberRelationshipSpecialtyStart DateEnd Date Cas Galicia MD [address] [place] [address] PCP - General02/17/22documented as of this encounter
== END 2024-12-01 11:56 | disposition home or self-care (01) ==
LOC: LAB 11:56
PROVIDERS: PCP Family Medicine; Visit Provider Nurse Practitioner Family
DX: E34.9 Endocrine disorder, unspecified (principal); Z79.890 Hormone replacement therapy
CPT/HCPCS: 36415; 82626; 82627; 82670; 84144; 84402; 84403; 87624; 88175

== ENCOUNTER 2024-12-01 20:03 | Outpatient (REF) | payer BC, SELFPAY ==
--- OUTSIDE RECORDS SUMMARY | 2024-11-24 10:00 | XMS_ITS | Encounter Summary ---
Author Organization [facility] tem Address [id number] [address] [place] [address] Care Team Providers Care Log Buyer Name Role Phone Cas Galicia MD Primary Care Provider [phone] Reason for Visit * ReasonCommentsFollow-upThy f/u Encounter Details DateTypeDepartmentCare Team (Latest Contact Info)Kmmkddjjnel70/20/2025 10:00 AM EDTOffice Visit [facility] Adult Endocrinology, A Department of [facility] [address] [phone] Aklia Ballard MD 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) Social History Tobacco UseTypesPacks/DayYears UsedDateSmoking Tobacco: NeverSmokeless Tobacco: NeverAlcohol UseStandard Drinks/WeekCommentsNot Currently0 (1 standard drink = 0.6 oz pure alcohol)PHQ-2AnswerDate RecordedTotal Rxwmo465/30/2023Childcare AnswerDate CjzxuyloLenuvqygrYbuvqqx84/12/2019EmploymentAnswerDate Recorded XivqrqfaizBqcioop24/12/2019Hunger ScreeningAnswerDate RecordedWithin the past 12 months we worried whether our food would run out before we got money to buy more.Never True11/22/2023Within the past 12 months the food we bought just didn't last and we didn't have money to get more.Never True4Purpose - LifeAnswerDate RecordedPurpose and direction in clalLynlhxc53/11/2021 CommentsNoSex and Gender InformationValueDate RecordedSex Assigned at Mstkyu9705/14/2021 2:48 PM EDTLegal ScwBktotr44/06/2015 12:02 PM EDTGender XitqqoakReglfe46/09/2022 2:48 PM EDTSexual YtsatkdffgeLkskgjdv52/09/2022 2:48 PM EDTdocumented as of this encounter Last Filed Vital Signs Vital SignReadingTime TakenCommentsBlood Fkrooprj623/7511/24/2024 10:12 AM EDT Yofpf274011/24/2024 10:12 AM EDTTemperature--Respiratory Ciqv5612 10:12 AM EDTOxygen Saturation--Inhaled Oxygen Concentration--Oetdlc697.2 kg (234 lb 3.2 oz)11/24/2024 10:12 AM UATAlexjc337.6 cm (5' 4 )11/24/2024 10:12 AM EDTBody [...] Clotting disorder 1983 COVID Depression Diabetes mellitus ([facility]) Diabetes mellitus type 2, controlled ([facility]) Eczema 2006 Elevated troponin Fatty liver [...] Plan of Treatment DateTypeDepartmentCare Team (Latest Contact Info)Xzayytqhpnd30/21/2025 10:30 AM ESTOffice Visit [facility], A Department of [facility] [address] [phone] Stella Flowers, AIR TRANSPORTATION PROVIDER-PROCESS AREA SUPERVISOR [address] [phone] 01/05/2025 12:30 PM ESTClinical Support [facility] - ENT [address] [place] [address], [address] [place] [phone] Argentina Trivedi, CCC-BUSINESS DEVELOPMENT INTERN [address] [place] [address] [address] [place] [phone] 01/27/2025 4:15 PM ESTOffice Visit [facility] - ENT [address] [place] [address], [address] [place] [phone] Terri Smith MD [address] [facility] [address] [place] [phone] 11/24/2025 10:00 AM EDTOffice Visit [facility] Adult Endocrinology, A Department of [facility] [address] [phone] Akila Ballard MD [address] [address] documented as of this encounter Results * T3, free (11/24/2024 11:00 AM EDT)ComponentValueRef RangeTest MethodAnalysis TimePerformed AtPathologist SignatureFREE T32.652.50 - 3.90 pg/mL11/24/2024 1:55 PM [facility] LABORATORYSpecimen (Source)Anatomical Location / LateralityCollection Method / VolumeCollection TimeReceived Time BloodVenous blood / UnknownVenipuncture / Bkfbvbi9011/24/2024 11:00 AM EDT 11/24/2024 11:00 AM EDT Narrative Authorizing ProviderResult TypeResult StatusAkila Ballard MDLAB BLOOD ORDERABLESFinal ResultPerforming OrganizationAddressCity/State/ZIP CodePhone Number [facility] [address] [place] [address], * TSH (11/24/2024 11:00 AM EDT)ComponentValueRef RangeTest MethodAnalysis Time Performed AtPathologist SignatureTSH0.890.49 - 4.67 uIU/mL11/24/2024 1:56 PM [facility] LABORATORYSpecimen (Source)Anatomical Location / LateralityCollection Method / VolumeCollection TimeReceived TimeBloodVenous blood / UnknownVenipuncture / Grqibii5711/24/2024 11:00 AM EDT1 11:00 AM EDT Narrative Authorizing ProviderResult TypeResult StatusAkila MILAN BLOOD ORDERABLESFinal ResultPerforming OrganizationAddressCity/State/ZIP CodePhone Number [facility] [address] [place] [address], * T4, free (11/24/2024 11:00 AM EDT)ComponentValueRef RangeTest MethodAnalysis TimePerformed AtPathologist SignatureFREE T40.610.61 - 1.60 ng/dL11/24/2024 1:57 PM [facility] LABORATORYSpecimen (Source)Anatomical Location / LateralityCollection Method / VolumeCollection TimeReceived Time BloodVenous blood / UnknownVenipuncture / Msllvae5711/24/2024 11:00 AM EDT 11/24/2024 11:00 AM EDT Narrative Authorizing ProviderResult TypeResult StatusAkila MILAN BLOOD ORDERABLESFinal ResultPerforming OrganizationAddressCity/State/ZIP CodePhone Number [facility] [address] [place] [address], documented in this encounter Visit Diagnoses Diagnosis 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- Primary documented in this encounter Additional Health Concerns AssessmentNoted TimePHQ-9 Depression Total Score: 3:26 PM EST documented as of this encounter Care Teams Team MemberRelationshipSpecialtyStart DateEnd Date Cas Galicia MD PCP - GeneralFamily Jttiaxbb37/14/21documented as of this encounter
--- OUTSIDE RECORDS SUMMARY | 2024-11-26 08:30 | XMS_ITS | Encounter Summary ---
Author Organization [facility] Address [address] [address] Care Team Providers Care Tire Maintenance Technician Name Role Phone Cas Galicia MD Primary Care Provider [phone] Encounter Details DateTypeDepartmentCare Team (Latest Contact Info)Kpfvpxstfgk23/22/2025 8:30 AM EDTAncillary Procedure [facility] [address] [place] [address] Awareness of heartbeats Social History Tobacco UseTypesPacks/DayYears [...] your partner or ex-partner?No01/10/2023HQ-2AnswerDate RecordedPatient Health Questionnaire-2 [id number] Vital SignAnswerDate RecordedOn average, how many days [...] CommentsNoSex and Gender InformationValueDate RecordedSex Assigned at MtbjuGioeoz66/22/2025 9:10 PM EDTLegal BbxKeusev51/30/2022 1:25 PM EDTGender MvmtwbccOmuprg30/22/2025 9:10 PM EDTSexual OrientationHeterosexual or Straight 09/26/2024 9:10 PM EDTdocumented as of this encounter Plan of Treatment Not on file documented as of this encounter Procedures Procedure NamePriorityDate/TimeAssociated DiagnosisCommentsCARDIAC DEVICE CHECK CHECK - PAZFMCRcxmron24/23/2025 12:14 PM EDT Awareness of heartbeats documented [...] DateEnd Date Naderer, Cas, MD [address] [place] [address] PCP - General02/17/22documented as of this encounter
--- OUTSIDE RECORDS SUMMARY | 2024-12-01 10:40 | XMS_ITS | Encounter Summary ---
Author Organization [facility] Address [address] [place] [address] Care Team Providers Care Shredded Filler Cigar Maker Machine Name Role Phone Cas Galicia MD Primary Care Provider Reason for Visit * ReasonCommentsWell Women Visit Encounter Details DateTypeDepartmentCare Team (Latest Contact Info)Ifehbuijrur88/27/2025 10:40 AM EDTOffice Visit [facility] [address] [place] [address] Rubens Tim, [address] [place] [address] Postmenopausal HRT (hormone replacement therapy) (Primary Dx); [...] other ways by your partner or ex-partner?Patient ifafoemh56/04/2025Within the last year, have you been kicked, [...] you get together with friends or relatives?Patient qiejthns52/04/2025How often do you attend mormonism or orthodox services?Patient cbthslei11/04/2025Do you belong to any clubs or organizations such as mormonism groups, unions, [employer] or athletic groups, or school groups?No08/08/2024How often do you attend meetings of the clubs or organizations you belong to?Patient weagcnhu56/04/2025re you , , , , never , or living with a partner?Yftsnii7208/08/2024UDIT-CAnswerDate RecordedQ1: How often do you have a [...] like food, housing, medical care, and heating?Somewhat hard08/08/2024[facility] [place] [facility] - Occupational Stress QuestionnaireAnswerDate [...] pay the mortgage or rent on time?Patient gmjrelrl20/03/2024In the last 12 months, how many places have you lived?1 04/08/2023In the last 12 months, was there a time when you did not have a steady place to sleep [facility])?Patient qzvvhijm97/03/2024 Housing Stability Vital SignAnswerDate RecordedIn the last 12 months, was there a time when you were not able to pay the mortgage or rent on time?No08/08/2024In the past 12 months, how many times have you moved where you were living?0 08/08/2024t any time in the past 12 months, were you homeless or living in a alf (including now)?No08/08/2024CommentsNoSex and Gender Information ValueDate RecordedSex Assigned at BirthNot on fileLegal UzdTpgtsn31/15/2023 6:40 PM EDTGender IdentityNot on fileSexual OrientationNot on filedocumented as of this encounter Last Filed Vital Signs Vital SignReadingTime TakenCommentsBlood Gdgatijx496/8610 11:10 AM EDT Pulse--Temperature--Respiratory Rate--Oxygen Saturation--Inhaled Oxygen Concentration--Iipunc807 kg (228 lb 8 oz)12/01/2024 11:10 AM [...] hyperglycemia, without long-term current use of insulin ([facility]) 12/24/2020 Diffuse pain 08/23/2021 Adverse food reaction 07/25/2021 Dyspareunia in female 01/12/2023 Gastroesophageal reflux disease 12/22/2015 Gross hematuria 01/12/2023 Hearing loss 12/22/2015 History of hysterectomy 02/10/2021 Hyperlipidemia 12/22/2015 Irritable bowel syndrome 12/22/2015 Memory difficulties 03/02/2021 Migraine without aura and without status migrainosus, not intractable 12/24/2020 Moderate persistent asthma without complication ([facility]) 07/25/2021 KATELIN (obstructive sleep apnea) 12/24/2020 Ovarian cyst 01/12/2023 Palpitations 10/20/2021 Decreased activity tolerance 08/23/2021 Chronic vwgd-MCDZV-85 syndrome 03/02/2021 Primary hypothyroidism 12/22/2015 Qualitative platelet [...] CONTRAST OTHER SURGICAL HISTORY 2013 uterine ablation [place],CHOLECYSTECTOMY 2009 [place] LAPAROSCOPY W/LYSIS OF ADHESIONS 2010 SALPINGECTOMY Bilateral [...] nursing note reviewed. Exam conducted with a administration vice president present. Vitals: Estimated body mass index is [...] Plan of Treatment DateTypeDepartmentCare Team (Latest Contact Info)Rvdbbgrnnju13/03/2026 8:20 AM EDTOffice Visit [facility] [address] [place] [address] Jodi Holden, PA [address] [place], [place] [id number] 12/07/2025 2:00 PM ESTProcedure Visit [facility] [address] [place] [address] Rubens Tim DO [address] [place], [place] [address] NameTypePriorityAssociated DiagnosesOrder ScheduleBilateral screening mammogram ImagingRoutine Encounter [...] Date Cas Galicia MD PCP - GeneralFamily Medicine04/09/23documented as of this encounter
--- OUTSIDE RECORDS SUMMARY | 2024-12-01 20:06 | XMS_ITS | Encounter Summary ---
Author Organization [facility] tem Address [id number] [address] [place] [address] Care Team Providers Care Floral Arranger Name Role Phone Cas Galicia MD Primary Care Provider [phone] Encounter Details DateTypeDepartmentCare Team (Latest Contact Info)Kysylgeigxp20/22/2025Results Follow-Up [facility], A Department of [facility] [address] [phone] Akila Ballard MD [address] [address] T4, free, TSH, T3, free Social History Tobacco UseTypesPacks/DayYears UsedDateSmoking Tobacco: NeverSmokeless Tobacco: NeverAlcohol UseStandard Drinks/WeekCommentsNot Currently0 (1 standard drink = 0.6 oz pure alcohol)PHQ-2AnswerDate RecordedTotal Jfztx977/30/2023Childcare AnswerDate PkgnnbqwRwsxnepkkMfdlipi22/12/2019EmploymentAnswerDate Recorded AvgncjkkiqQwiglxa46/12/2019Hunger ScreeningAnswerDate RecordedWithin the past 12 months we worried whether our food would run out before we got money to buy more.Never True11/22/2023Within the past 12 months the food we bought just didn't last and we didn't have money to get more.Never True4Purpose - LifeAnswerDate RecordedPurpose and direction in pyubVozsjgp31/11/2021 CommentsNoSex and Gender InformationValueDate RecordedSex Assigned at Eepbyq4405/14/2021 2:48 PM EDTLegal KeeDbaidb78/06/2015 12:02 PM EDTGender EkykflhpSlflpe36/09/2022 2:48 PM EDTSexual SudxkjvwuklLhekqzgt37/09/2022 2:48 PM EDTdocumented as of this encounter Plan of Treatment DateTypeDepartmentCare Team (Latest Contact Info)Hljwwffxrcr26/21/2025 10:30 AM ESTOffice Visit [facility] Department of [facility] [address] [address] Stella Flowers, INDUSTRIAL SERVICES WORKER-INTERACTIVE PRODUCER [address] [phone] 01/05/2025 12:30 PM ESTClinical Support [facility] - [facility] [address] [place] [address], [address] [place] [phone] Argentina Trivedi, [facility]-HOME SCHOOL LIAISON OFFICER [address] [place] [address] [address] [place] [phone] 01/27/2025 4:15 PM ESTOffice Visit [facility] [address] [place] [address], [address] [place] [address] Terri Smith MD [address] [place] [address] 11/24/2025 10:00 AM EDTOffice Visit [facility], A Department of [facility] [address] [phone] Akila Ballard MD [address] [address] documented as of this encounter Visit Diagnoses Not on filedocumented in this encounter Additional Health Concerns AssessmentNoted TimePHQ-9 Depression Total Score: 3:26 PM EST documented as of this encounter Care Teams Team MemberRelationshipSpecialtyStart DateEnd Date Cas Galicia MD PCP - GeneralFamily Huteflbj35/14/21documented as of this encounter
--- OUTSIDE RECORDS SUMMARY | 2024-12-01 20:06 | XMS_ITS | Encounter Summary ---
Author Organization [facility] tem Address [facility] [id number] [address] [place] [address] Care Team Providers Care Clinical Laboratory Aides Teacher Name Role Phone Cas Galicia MD Primary Care Provider [phone] Encounter Details DateTypeDepartmentCare Team (Latest Contact Info)Ychzvtptlht29/23/2025Orders Only [facility] Adult [facility]ology, A Department of [facility] [address] [phone] Akila Ballard MD 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) Social History Tobacco UseTypesPacks/DayYears UsedDateSmoking Tobacco: NeverSmokeless Tobacco: NeverAlcohol UseStandard Drinks/WeekCommentsNot Currently0 (1 standard drink = 0.6 oz pure alcohol)PHQ-2AnswerDate RecordedTotal Doeov204/30/2023Childcare AnswerDate JgxafuhtZsceufgbhKpmkanu84/12/2019EmploymentAnswerDate Recorded OqxtkptqcmQcbsdox28/12/2019Hunger ScreeningAnswerDate RecordedWithin the past 12 months we worried whether our food would run out before we got money to buy more.Never True11/22/2023Within the past 12 months the food we bought just didn't last and we didn't have money to get more.Never True4Purpose - LifeAnswerDate RecordedPurpose and direction in lqywFucrnpc99/11/2021 CommentsNoSex and Gender InformationValueDate RecordedSex Assigned at Gqrcbd4705/14/2021 2:48 PM EDTLegal SokOwslky66/06/2015 12:02 PM EDTGender DytkqbzcIcrduv01/09/2022 2:48 PM EDTSexual JritwrdvlwsEbfjarap39/09/2022 2:48 PM EDTdocumented as of this encounter Plan of Treatment DateTypeDepartmentCare Team (Latest Contact Info)Rcyasgwpubr70/21/2025 10:30 AM ESTOffice Visit [facility] Neurology, A Department of [facility] [address] [phone] Stella Flowers, INFECTION CONTROL MANAGER-CRABBER [address] [phone] 01/05/2025 12:30 PM ESTClinical Support [facility] - ENT [address] [place] [address], [address] [place] [phone] Argentina Trivedi, [facility]-PROCESSING ENGINEER [address] [place] [address] [address] [place] [phone] 01/27/2025 4:15 PM ESTOffice Visit [facility] - [facility] [address] [place] [address], [address] [place] [address] Terri Smith MD [address] [facility] [address] [place] [address] 11/24/2025 10:00 AM EDTOffice Visit [facility] Adult Endocrinology, A Department of [facility] [address] [phone] Akila Ballard MD [address] [address] NameTypePriorityAssociated DiagnosesOrder ScheduleT4, freeLabRoutine Hypothyroidism due to [...] Date Cas Galicia MD PCP - GeneralFamily Mlzaeaob82/14/21documented as of this encounter
--- OUTSIDE RECORDS SUMMARY | 2024-12-01 20:06 | XMS_ITS | Encounter Summary ---
Author Organization [facility]osse[facility] tem Address [facility] [id number] [address] [place] [address] Care Team Providers Care Accounting Clerk Name Role Phone Cas Galicia MD Primary Care Provider [phone] Encounter Details DateTypeDepartmentCare Team (Latest Contact Info)Hxoafnlfyua96/20/2025Travel Social History Tobacco UseTypesPacks/DayYears UsedDateSmoking Tobacco: NeverSmokeless Tobacco: NeverAlcohol UseStandard Drinks/WeekCommentsNot Currently0 (1 standard drink = 0.6 oz pure alcohol)PHQ-2AnswerDate RecordedTotal Wuspb570/30/2023Childcare AnswerDate GfwinmlwCkidsmjkkQhpoiho34/12/2019EmploymentAnswerDate Recorded GzijibakujFycypem83/12/2019Hunger ScreeningAnswerDate RecordedWithin the past 12 months we worried whether our food would run out before we got money to buy more.Never True11/22/2023Within the past 12 months the food we bought just didn't last and we didn't have money to get more.Never True4Purpose - LifeAnswerDate RecordedPurpose and direction in gfwnEtwdzdu95/11/2021 CommentsNoSex and Gender InformationValueDate RecordedSex Assigned at Vimdsd4605/14/2021 2:48 PM EDTLegal QfjUvdnao81/06/2015 12:02 PM EDTGender VtdgyjnpZrdgqs02/09/2022 2:48 PM EDTSexual OthnhqangylRfyxhpnd21/09/2022 2:48 PM EDTdocumented as of this encounter Plan of Treatment DateTypeDepartmentCare Team (Latest Contact Info)Zwaankzbnfd44/21/2025 10:30 AM ESTOffice Visit [facility] Department of [facility] [address] [phone] Lionel Stella, SILVER PLATER-WAREHOUSE ADMINISTRATIVE ASSISTANT [address] [phone] 01/05/2025 12:30 PM ESTClinical Support [facility] [address] [place] [address], [address] [place] [phone] Argentina Trivedi, [facility] [address] [place] [address] [address] [place] [phone] 01/27/2025 4:15 PM ESTOffice Visit [facility] [address] [place] [address], [address] [place] [phone] [place] [address] [place] [address] [place] [phone] 11/24/2025 10:00 AM EDTOffice Visit [facility] Adult Endocrinology, A Department of [facility] [address] [phone] Akila Ballard MD [address] [address] documented as of this encounter Visit Diagnoses Not on filedocumented in this encounter Additional Health Concerns AssessmentNoted TimePHQ-9 Depression Total Score: 3:26 PM EST documented as of this encounter Care Teams Team MemberRelationshipSpecialtyStart DateEnd Date Cas Galicia MD PCP - GeneralFamily Knswgyhs08/14/21documented as of this encounter
--- OUTSIDE RECORDS SUMMARY | 2024-12-01 20:06 | XMS_ITS | Clinical Summary ---
Author Organization [facility] Address [address] [place] [address] Care Team Providers Care Skin Diver Name Role Phone Cas Dowell MD Primary Care Provider [phone] Allergies Active AllergyReactionsCriticalityNoted DateCommentsAspirinAngioedema,Rash, NvlchpfElc06/30/2012 Other reaction(s): Angioedema, Unknown, Unknown Maerqulo43/02/9989Wqgtcsgdpf34/02/7173Akuumurrbhh86/02/2023alcanezumab-Gnlm 07/07/2022ErythromycinShortness of breath,WauzdnvaBorr04/30/2012 Other Reaction(s): Unknown Fish YuqqescLtfojJktkjf88/20/4775JatodaixykdzVdgmraku78/16/2015IbuprofenRash, LpabpixIuezmm52/30/2012 Due to clotting disorder-Aleve Other reaction(s): Unknown, Unknown Due to clotting disorder-Aleve Due to clotting disorder-Aleve Other Reaction(s): Unknown Iodinated Contrast NgqxyGqyumimrmnrObrv55/19/2015 Other reaction(s): Unknown Does not tolerate with pre-medication Other reaction(s): Unknown Does not tolerate with pre-medication Tolerated with pre-medication on 09/22/21 Other reaction(s): Unknown Does not tolerate with pre-medication Tolerated with pre-medication on 09/22/21 Other reaction(s): Unknown Does not tolerate with pre-medication Other Reaction(s): Unknown LatexItching,Rash,Swelling,BylbqzmJbt14/30/2012 Skin cracks and bleeds Other reaction(s): Unknown Skin cracks and bleeds Skin cracks and bleeds Other Reaction(s): Unknown Lavender DbiLuiobxyoywcVwyo14/09/5810ExglfthfwfzlElcfRak39/07/2021MentholHives 02/27/20226489WnnkoppbRzpuvfshmw84/02/2021 Other reaction(s): Angioedema Norethindrone-Eth Rbzltzyww48/30/2012 Chest hurt and legs turned black -- saw Dr. Jorge London Penicillin G Qsbrlsebvv36/17/2024 Other Reaction(s): Unknown PenicillinsItching,PxjnSxk7009/04/2011 Other reaction(s): Unknown, Unknown, Unknown Povidone-HuikbmGbgrKfu48/19/2023RofecoxibRash,HsvwydfLux07/30/2012 Other reaction(s): Unknown Shellfish Protein-Containing Drug ProductsHives,BgbzQxt7401/08/2022imethicone 07/07/2022Sulfa AntibioticsShortness of breath,PaintdhhYnko96/14/2016 Other reaction(s): Unknown Other reaction(s): Unknown Other reaction(s): Unknown Yconvvcplgurcydq65/17/2024 Other Reaction(s): Unknown Sulfamethoxazole-TvsyvpzdhfqfCqgmdemRoro49/19/2014 Cant breathe Other reaction(s): Other Cant breathe Rwsrxelayp68/06/2025ValacyclovirAnaphylaxis,Shortness of xjsjjfLedq64/31/2022 Aesshefak46/02/5948HeegkjgjLoioyjvOeov20/19/2023 Uncontrolable limb movements Muscle spasms Medications MedicationSigDispense [...] 10 years. Advised not to smoke. Hormone etamhfnqk00/26/2025PCOS (polycystic ovarian syndrome)04/30/2024lass 2 severe obesity due to excess calories with serious comorbidity and body mass index (BMI) of37.0 to 37.9 in adult02/11/2024 Assessment & Plan (02/11/2024 10:23 AM EST): Weight loss indicated Allergic uygrlxwh07/21/2024 Assessment & Plan (09/26/2023 10:10 AM EDT): Recent reaction and improved with treatment. Reactions getting worse and refer to car bracer. Edema of both legs04/09/2023 Assessment & Plan [...] stable and elevate legs PRN. Dyspareunia in ftytrh3901/12/2023ross zkwwdanmp01/08/2023Ovarian cyst01/12/2023 Right inguinal agxlww7801/12/2023Urethral yejsbhmiw64/08/2023Vitamin D deficiency 01/12/2023Qualitative platelet bxeupdgl60/27/2062Uaechjsuzvjj82/15/2022Diffuse pain08/23/2021ecreased activity xmelplqon09/19/2022llergic reaction to contrast dye07/25/2021dverse food jgrqtvlo08/20/2022Moderate persistent asthma without ksgaqhzfndli15/20/2022 Assessment & Plan (02/11/2024 10:37 AM EST): Breathing stable with symbicort and continue. Tachycardia from albuterol and try xopenex PRN. Assessment & Plan (10/10/2023 9:42 AM EDT): Breathing stable with symbicort and continue. Use albuterol PRN. Assessment & Plan (04/09/2023 9:29 AM EST): Breathing stable with symbicort and continue. Use albuterol PRN. Screening for endocrine rsrakkbt17/10/2022ubjective muscle eqtcynku64/19/2022 Transient wigprttq66/19/3591Bgfwutg87/26/4494Fwzyrakvjcb52/26/2022Memory nczokzpqsuzb53/26/2022hronic vdmw-NYZZN-55 chhfexrt25/26/2022 Assessment & Plan (02/11/2024 10:35 AM EST): No change in symptoms and monitor. Assessment & Plan (10/10/2023 9:42 AM EDT): No change in symptoms and monitor. Assessment & Plan (04/09/2023 9:29 AM EST): No change in symptoms and monitor. Trapezius muscle spasm03/02/2021Word finding otkkyiupkf04/26/2022spirin allergy 02/10/2021utonomic ldpfbokjwyq07/06/2022 Assessment & Plan (02/11/2024 10:35 AM EST): Continued symptoms and continue medication. Follow with cardiology as scheduled. Assessment & Plan (01/16/2023 11:50 AM EST): Continued symptoms and continue medication. Follow with cardiology as scheduled. History of skmiobqwasog22/06/2022TSD (post-traumatic stress disorder)12/24/2020 Symptomatic apvsswcloqa63/19/2021MDD (major depressive disorder), recurrent episode, mild12/24/2020 Assessment & Plan (02/11/2024 10:36 AM EST): Symptoms stable and follow with psychiatry. Type 2 diabetes mellitus with hyperglycemia, without long-term current use of gzewggx6412/24/2020 Assessment & Plan (08/11/2024 10:05 AM EDT): [...] without aura and without status migrainosus, not gmsynycteac07/19/2021 KATELIN (obstructive sleep apnea)12/24/2020hronic xljjwpvjcobefi71/16/2016 Assessment & Plan (09/25/2024 4:40 PM EDT): [...] stable with medication and continue. Gastroesophageal reflux aqejccz3812/22/2015 Assessment & Plan (02/11/2024 10:23 AM EST): No symptoms Hearing loss12/22/20150271Laimbhjqqgfzun62/16/2016Irritable bowel wstiffwi47/16/2016 Primary ocfulfvtutvxfw47/16/2016Arachnoid cyst of pituitary gland04/07/2015 Bleeding jglsmjuc97/19/2015 Resolved Problems ProblemNoted DateDiagnosed DateResolved DateCOVID-190 Assessment & Plan (02/27/2024 8:57 AM EST): Recent infection and continued cough and SOB. Repeat steroids and use albuterol every 4 hours x 48 then PRN. Use OTC PRN for symptoms. Acute non-recurrent idegmuoxcwqi61 Assessment & Plan (04/09/2023 9:30 AM EST): Take antibiotics for 7 days. Use OTC PRN cough or congestion. Use Motrin or Tylenol as needed for fever, aches, or pains. Increase fluid intake and rest. Should improve over next 5-7 days and if no better or worse call for re-evaluation. Abnormal urine jhmavwxa03Stress ocuscedfsoau11/08/2023 04/09/2023Syncope and aftxsvvf21 Overview (01/12/2023): Added automatically from request for surgery [id number] Adenovirus uiqnlsuty29RSV (respiratory syncytial virus infection)Exacerbation of yjmggu13 Orthostatic olokcecbhxh07rug jccjwgao50 Blood pressure muihxhzswgc82Orthostatic lightheadedness Hypersomnia with sleep apneahest pain Assessment & Plan (01/16/2023 11:50 AM EST): Continued pain but unclear cause. Follow with cardiology. Acute stress crwhsweo00sthma1Generalized ecznqmsd58bdominal pain, acute, right lower quadrant Encounters DateTypeDepartmentCare LwzwMphxrzpnqkg05/27/2025 10:40 AM EDTOffice Visit [facility] [address] [facility] [place] [phone] Rubens Tim DO Postmenopausal HRT (hormone replacement therapy) (Primary Dx); Well woman exam with routine gynecological exam; Encounter for screening mammogram for malignant neoplasm of breast; Hormone ekmdnacn45/27/2025Refill [facility] [address] [facility] [phone] Priscila Gonzalez, BRANDY Postmenopausal HRT (hormone replacement therapy)12/01/2024amboo flowsheet [facility] [address] [facility] [phone] Rubens Tim DO 11/26/20241279Ahpmwo62/26/2025linisync Result Encounter [facility] External Department Unsolicited Provider, Generic External Data 09/29/2024Results Follow-Up [facility] [address] [place] [phone] Cas Dowell MD XR elbow 1 or 2 views right09/29/2024linisync Result Encounter [facility] External Department Unsolicited Cas Dowell MD 09/29/2024linisync Result Encounter [facility] External Department Unsolicited Cas Dowell MD 09/29/2024linisync Result Encounter [facility] External Department Unsolicited Cas Dowell MD 09/29/2024Orders Only [facility] [address] [place] [phone] Cas Dowell MD 09/25/2024 3:45 PM EDTOffice Visit [facility] [address] [place] [phone] Cas Dowell MD Chronic rhinosinusitis (Primary Dx); Right wrist pain; Right forearm pain09/25/2024bstract [facility] [address] [place] [address] Cas Dowell MD 09/25/2024amboo flowsheet [facility] [address] [place] [phone] Cas Dowell MD 09/16/2024[facility]ill [facility] [address] [place] [phone] Cas Dowell MD Vitamin D deficiencyfrom Last 3 Months Immunizations ImmunizationAdministration DatesNext DueInfluenza, G5K2-619133/15/2020Influenza, Qrryzlzrxby93/15/2020,11/06/2019Influenza, injectable, quadrivalent, preservative free10/27/2019 Family History * [...] other ways by your partner or ex-partner?Patient nqytinzx52/04/2025Within the last year, have you been kicked, [...] you get together with friends or relatives?Patient kmyqgzwn38/04/2025How often do you attend buddhism or roman catholic services?Patient ihyyknvu35/04/2025Do you belong to any clubs or organizations such as buddhism groups, unions, fraternal or athletic groups, or school groups?No08/08/2024How often do you attend meetings of the clubs or organizations you belong to?Patient lrtnvhaq07/04/2025re you , , , , never , or living with a partner?Ukkmenp6208/08/2024UDIT-CAnswerDate RecordedQ1: How often do you have a [...] like food, housing, medical care, and heating?Somewhat hard08/08/2024[facility] - Occupational Stress QuestionnaireAnswerDate [...] steady place to sleep or slept in [place] (including now)?Patient mktqveht64/03/2024 Housing Stability Vital SignAnswerDate RecordedIn the last [...] ValueDate RecordedSex Assigned at BirthNot on fileLegal DnkPzvivy82/15/2023 6:40 PM EDTGender IdentityNot on fileSexual OrientationNot on file Last Filed Vital Signs Vital SignReadingTime TakenCommentsBlood Aimbebjw315/8610 11:10 AM EDT Czwnz720709/25/2024 3:50 PM QUKTkjpngdicor62.4 ??C (97.5 ??F)09/25/2024 3:50 PM EDTRespiratory Raze706109/25/2024 3:50 PM EDTOxygen Udcwowltos94%09/25/2024 3:50 PM EDTInhaled Oxygen Concentration--Jtvvin304 kg (228 lb 8 oz)12/01/2024 11:10 AM LFCPoptnc831.6 cm (5' 4 )09/25/2024 3:50 PM EDTBody Mass Index39.22009/25/2024 3:50 PM EDT Plan of Treatment DateTypeDepartmentCare Team (Latest Contact Info)Kabztpigxux86/03/2026 8:20 AM EDTOffice Visit [facility] [address] [facility] [place] [address] Jodi Holden, [place] [address] [place] [address] 12/07/2025 2:00 PM ESTProcedure Visit [facility] [address] [facility] [place] [address] Rubens Tim, [address] [facility] [place] [address] Procedures Procedure NamePriorityDate/TimeAssociated DiagnosisCommentsCCF COMP METAB 2000 PNL DRLLDYurhids60/26/2025 8:42 AM EDT [facility] CBC W AUTO DIFF OYUNzcclwn37/26/2025 8:42 AM EDT XR FOREARM 2 VIEWS RJYCQOudwxnn78/25/2025 2:01 PM EDTXR WRIST 2 VIEWS RIGHT Fehdvbu1009/29/2024 2:00 PM EDTXR ELBOW 3+ VIEWS JQNVFOhajcbi59/25/2025 1:59 PM EDTXR ELBOW 1-2 VIEWS RIGHT09/29/2024 [...] RBC-RTO11.911.5 - 15.0 %CCFCCF PLATELET # BLD [id number] - 400 k/uLCCFCCF PMV BLD AUTO9.89.0 - [...] EDT Specimen Type: BLOOD SPECIMEN Ordering Facility: [facility] ?Address: [address] [place] [address] [place] [address] Original Ordering Provider: FUENTES AMARAL Authorizing ProviderResult TypeResult StatusGeneric External Data Provider CLINISYNCFinal ResultPerforming OrganizationAddressCity/State/ZIP CodePhone Number CLINISYNC [facility] [address] [place] [address] * (ABNORMAL) [facility] COMP METAB 2000 PNL SERPL (09/30/2024 8:42 AM EDT)Component ValueRef RangeTest MethodAnalysis TimePerformed AtPathologist SignatureCCF PROT SERPL-MCNC6.76.3 - 8.0 g/dLCCFCCF ALBUMIN SERPL-MCNC4.53.9 - 4.9 g/dLCCF CCF CALCIUM SERPL-MCNC9.78.5 - 10.2 mg/dLCCFCCF BILIRUB SERPL-MCNC0.30.2 - 1.3 mg/dLCCFCCF ALP SERPL-KJSR9962 - 123 U/LCCFCCF AST SERPL-CCNC10(L)13 - 35 U/L CCFCCF ALT SERPL-YYXH151 - 38 U/LCCFCCF GLUCOSE SERPL-AZWL106(H)74 - 99 mg/dL CCFComment: The [place] Diabetes Association (ADA) provides guidance for cutoff [...] Standards of Medical Care in Diabetes 2016, [place] [employer] Association. Diabetes Care. 2016.39(Suppl 1). [facility] BUN SERPL-VMXN222 - 21 mg/dLCCFCCF CREAT SERPL-MCNC0.97(H)0.58 - 0.96 mg/dL CCFCCF SODIUM SERPL-GBHE248660 - 144 mmol/LCCFCCF POTASSIUM SERPL-SCNC3.6(L)3.7 - 5.1 mmol/LCCFCCF CHLORIDE SERPL-IVIB07783 - 107 mmol/LCCFCCF CO2 SERPL-SCNC25 22 - 30 mmol/LCCFCCF ANION GAP SERPL-ZHEI050 - 15 mmol/LCCFEGFRCR SERPLBLD CKD- EPI 133285>=60 mL/min/1.73m???CCFComment:Estimated Glomerular Filtration Rate (eGFR) is calculated [...] EDT Specimen Type: BLOOD SPECIMEN Ordering Facility: [facility] ?Address: [address] [place] [address] Original Ordering Provider: FUENTES AMARAL Authorizing ProviderResult TypeResult StatusGeneric External Data Provider CLINISYNCFinal ResultPerforming OrganizationAddressCity/State/ZIP CodePhone Number [facility]IS[facility] [address] [place] [address] * XR forearm 2 views right (09/29/2024 [...] EDT Narrative 09/29/2024 1:46 PM EDT [facility] ?[address] ? [place] [address] ?XRay Report ? Signed ? Patient: MARC,VIJAYA S ?MR#: [id number] ?? : 1985 ?Acct:[id number] ?? Age/Sex: 38 / F ?ADM Date: 09/29/24 ?? Loc: LAB ? Attending Dr: Cas Dowell M.D. ? Ordering Physician: Cas Dowell M.D. ?? Date of Service: 09/29/24 ?? Procedure(s): XR elbow RT 2V ?? Accession Number(s): [id number] ? cc: Cas Dowell M.D. ? [facility] ? [address] ? [place] [address] ? Patient Name: ?? VIJAYA S MARC ? MRN: [id number] ? date: 1985 ?Sex: F ?? Assigned Patient Location: LAB ?? Current Patient Location: LAB ?? Accession/Order Number: [id number] ?? Exam Date: 09/29/2024 ??13:00 ?Report Date: [...] Dictation Location: RADIO-PC-23 ? Electronically authenticated by: [id number] ??Y ?? Date: 09/29/2024 ??13:44 ? Dictated By: ?Michael Price M.D. ? Signed By: ?09/29/246 ? DD/ 1344 ? TD/TT: ? Electrician Wiring: Procedure Note Radiology, Radiologist, MD - 09/29/2024 [place] [address] XRay Report Signed Patient: VIJAYA TRAN SMR#: [id number] : 1985Acct:[id number] Age/Sex: 38 / FADM Date: 09/29/24 Loc: LAB Attending Dr: Cas Dowell M.D. Ordering Physician: Cas Dowell M.D. Date of Service: 09/29/24 Procedure(s): XR elbow RT 2V Accession Number(s): [id number] cc: Cas Dowell M.D. The [place] [id number] Patient Name: VIJAYA TRAN MRN: [id number] date: 1985 Sex: F Assigned Patient Location: LAB Current Patient Location: LAB Accession/Order Number: [id number] Exam Date: 09/29/2024 13:00 Report Date: 09/29/2024 [...] Jr., D.O. 09/29/2024 1:44 PM Dictation Location: [place] [address] Electronically authenticated by: [id number] Y Date: 3:44 Dictated By: Michael Price M.D. Signed By:09/29/24 1346 DD/ 1344 TD/TT: Electrician Wiring: Authorizing ProviderResult TypeResult StatusMarc Naderer MDIMG XR PROCEDURES Final Result * XR wrist 1 or 2 views right (09/29/2024 1:43 PM EDT)Anatomical Region LateralityModalityUpper Extremities, WristRightRadiographic ImagingSpecimen (Source)Anatomical Location / LateralityCollection Method / VolumeCollection TimeReceived Time09/29/2024 1:43 PM EDT Narrative 09/29/2024 1:45 PM EDT [facility] ?[address] ? [place], [place] [address] ?XRay Report ? Signed ? Patient: MARC,VIJAYA S ?MR#: [id number] ?? : 1985 ?Acct:[id number] ?? Age/Sex: 38 / F ?ADM Date: 09/29/24 ?? Loc: LAB ? Attending Dr: Cas Dowell M.D. ? Ordering Physician: Cas Dowell M.D. ?? Date of Service: 09/29/24 ?? Procedure(s): XR wrist RT 2V ?? Accession Number(s): [id number] ? cc: Cas Dowell M.D. ? [facility] ? [address] ? [place] [address] ? Patient Name: ?? VIJAYA S MARC ? MRN: [facility]:[id number] ? date: 1985 ?Sex: F ?? Assigned Patient Location: LAB ?? Current Patient Location: LAB ?? Accession/Order Number: [id number] ?? Exam Date: 09/29/2024 ??13:00 ?Report Date: [...] Dictation Location: RADIO-PC-23 ? Electronically authenticated by: [id number] ??Y ?? Date: 09/29/2024 ??13:43 ? Dictated By: ?Michael Price M.D. ? Signed By: ?09/29/241344 ? DD/ 42 ? TD/TT: ? Electrician Wiring: Procedure Note Radiology, Radiologist, - 09/29/2024 [place] [address] XRay Report Signed Patient: VIJAYA TRAN SMR#: [id number] : 1985Acct:[id number] Age/Sex: 38 / FADM Date: 09/29/24 Loc: LAB Attending Dr: Cas Dowell M.D. Ordering Physician: Cas Dowell M.D. Date of Service: 09/29/24 Procedure(s): XR wrist RT 2V Accession Number(s): [id number] cc: Cas Dwoell M.D. The [place] [address] Patient Name: VIJAYA TRAN MRN: [id number] date: 1985 Sex: F Assigned Patient Location: LAB Current Patient Location: LAB Accession/Order Number: [id number] Exam Date: 09/29/2024 13:00 Report Date: 09/29/2024 [...] Jr., D.O. 09/29/2024 1:43 PM Dictation Location: [place] [address] Electronically authenticated by: [id number] Y Date: 3:43 Dictated By: Michael Price M.D. Signed By:09/29/24 1345 DD/ 134 TD/TT: Electrician Wiring: Authorizing ProviderResult TypeResult StatusMaramy LINDSEYG XR PROCEDURES Final Result from Last 3 Months Insurance * Guarantor: Vijaya Tran Shayla TypeRelation to PatientDate of BirthPhone Billing AddressPersonal/LxhaapIyua89/15/1986 [address] [address] MemberSubscriberPlan / Payer (Effective 2022-Present)Name:Vijaya Tran Member ID:[id number] Relation to Subscriber:SelfName:MarcVijaya Dominick Subscriber ID:[id number] Payer ID:Not on file Type:Not on file Address: [address] [place] [address] Care Teams Team MemberRelationshipSpecialtyStart DateEnd Date Cas Dowell MD PCP - GeneralFamily Medicine04/09/23
--- OUTSIDE RECORDS SUMMARY | 2024-12-01 20:07 | XMS_ITS | Encounter Summary ---
Author Organization [facility] Address [address] [place] [address] Care Team Providers Care Distribution Field Engineer Name Role Phone Cas Galicia MD Primary Care Provider [phone] Encounter Details DateTypeDepartmentCare Team (Latest Contact Info)Nyxvklozvbb78/21/2025Orders Only [facility] [address] [place] [address] Halima Morris MD [address] [place] [address] Social History Tobacco UseTypesPacks/DayYears UsedDateSmoking [...] your partner or ex-partner?No01/10/2023HQ-2AnswerDate RecordedPatient Health Questionnaire-2 Fjmum460Exercise Vital SignAnswerDate RecordedOn average, how many days [...] CommentsNoSex and Gender InformationValueDate RecordedSex Assigned at IeqquKdpayp27/22/2025 9:10 PM EDTLegal GjbIrincg10/30/2022 1:25 PM EDTGender ZexiwllgTerrhc82/22/2025 9:10 PM EDTSexual OrientationHeterosexual or Straight 09/26/2024 9:10 PM EDTdocumented as of this encounter Plan of Treatment Not on file documented as of this encounter Procedures Procedure NamePriorityDate/TimeAssociated DiagnosisCommentsCARDIAC DEVICE CHECK - REMOTE - LOOP RECORDER (ILR)Ffxzabm5011/25/2024 12:00 AM EDTdocumented in this encounter Results * Cardiac device check - Remote loop recorder (ILR) (11/25/2024 12:00 AM EDT) Anatomical RegionLateralityModalityOtherSpecimen (Source)Anatomical Location / LateralityCollection Method / VolumeCollection TimeReceived Time11/25/2024 Narrative Authorizing ProviderResult TypeResult StatusSabaylee Morris [facility] IMPLANTABLE CARDIAC DEVICE PROCEDURESFinal Result documented in this encounter Visit Diagnoses Not on filedocumented in this encounter Care Teams Team MemberRelationshipSpecialtyStart DateEnd Date Cas Galicia MD [address] [place] [address] PCP - General02/17/22documented as of this encounter
--- OUTSIDE RECORDS SUMMARY | 2024-12-01 20:07 | XMS_ITS | Clinical Summary ---
Author Organization [facility] Address [address] [place] [address] Care Team Providers Care Rubber Down Name Role Phone Cas Galicia MD Primary Care Provider [phone] Sai Perez MD Unavailable [phone] Rubens Tim DO Unavailable [phone] Allergies Active AllergyReactionsCriticalityNoted DqywHgdjfqdaUhieusicHzdzxiizwt68/02/2021 MksmpzfNwrntlgovc44/19/2015BupropionOther: See Nbtmkfqi01/17/2023 Reports like seizure activity and the fall asleep Other reaction(s): Other (See Comments) Reports like seizure activity and the fall asleep Reports like seizure activity and the fall asleep CefaclorShortness of Breath,Anaphylaxis,CvhlmimiEhko52/30/2012 Other reaction(s): Unknown Cefuroxime AxetilShortness of Kpmfgp3802/23/2014ClindamycinRash,Shortness of Racooh4902/23/2014ErythromycinSwelling,Shortness of Breath,Ctzspns7902/23/2014 KeiuhpemrjFmfywgzejhb79/18/2021Fish Containing TxpgzzpuMgctiXqkmdq15/20/2022 OyhzremuawfoCsyerhqx42/16/2015Iodinated Contrast NsxdkRvxoyxgfqezJljb72/19/2015 Tolerated with pre-medication on 09/22/21 Other reaction(s): Unknown Does not tolerate with pre-medication LatexRash,Itching,NvvimnbWav97/19/2015 Skin cracks and bleeds Lavender (Lavandula Angustifolia)Kvplqpvaesb30/02/2021Norethindrone-Ethin EwklheofmYizihrx10/30/2012 Chest hurt and legs turned black -- saw Dr. Jorge London Penicillin G SfjbwttpjjBusekar70/14/2022enicillinsRash,Tkwnzen4202/23/2014 Shellfish RdhgjmwAusunSkumwv25/20/2022ulfa (Sulfonamide Antibiotics)Swelling, Shortness of Izbbfp9205/18/20151975PvrxbvochXhwuqzq99/04/2022rospirenone-Ethinyl EstradiolOther: See Bprvrpvx39/04/2022 Skin discoloration of feet with OCPs Medications [...] 5Active Active Problems ProblemNoted DateDiagnosed DateQualitative platelet gajmxxqj94/27/2023 Glsydijrhhkj98/15/2022iffuse pain08/23/2021ecreased activity tolerance 08/23/2021rthostatic ghxjzuwwajc55/19/2022Moderate persistent asthma without dcqomdwgzhcz51/20/2022Gastroesophageal reflux kmdlyeh4007/25/2021llergic rhinitis 07/25/2021llergic reaction to contrast dye07/25/2021rug kqzbqhvu64/20/2022 Adverse food numofapz65/20/2022creening for endocrine hgeiodxz51/10/2022rimary ipshbvmovnmczg32/10/2022ymptomatic itdrhcfmpvi88/19/2022lood pressure buvicldttqh74/19/2022ubjective muscle /19/2022hysical deconditioning 05/24/2021Transient dxwgfiha99/19/2022rthostatic najqantoepbpeyq15/19/2022 Arachnoid cyst of pituitary gland04/07/2015Bleeding cvlttycc63/19/2015 Encounters DateTypeDepartmentCare ItxuKfsbtxjnbnt11/26/2025 9:30 AM EDTVisit (SP) Office Hematology/Oncology [address] [place] [address] [place] [address] Shweta Masters APRN.VENEREAL DISEASE CONTROL HEAD POTS (postural orthostatic tachycardia syndrome) (Primary Dx); Bleeding disorder; Qualitative platelet disorder (HCC); Systemic lupus erythematosus, unspecified SLE type, unspecified organ involvement status (HCC); Celiac disease (HCC); Irritable bowel syndrome without diarrhea; History of 2019 novel coronavirus disease (COVID-19); Status post jnzummklpnpk33/26/2025Travelfrom Last 3 Months Immunizations ImmunizationAdministration DatesNext Dueinfluenza (HD-IIV3) vaccine, age 65+ yr, high dose, trivalent, PF (FLUZONE HIGH-DOSE)11/06/2019influenza (IIV4) vaccine, age 6 mo - 64 yr, quadrivalent, PF (AFLURIA, FLUARIX, FLULAVAL, FLUZONE) 10/27/2019influenza [id number] virus vaccine, national gyydcdqen56/15/2020 influenza vaccine, unspecified sweqwqmmxpo67/15/2020,11/06/2019,10/27/2019 Family History Medical HistoryRelationCommentsDiabetesFatherHeart diseaseFatherDied at age 57 HypertensionFatherCardiomyopathyMotherDied at age 52DiabetesMotheruncontrolled Heart AttackMotherFirst [place] at age 51HypertensionMotherIschemic Heart Disease MotherNo Ocular [...] drink = 0.6 oz pure alcohol)PHQ-2AnswerDate RecordedPHQ-2 brhay8394Area Deprivation IndexAnswerDate RecordedNational Score (1-100), lower number is lower risk86 10/02/2022State Score (1-10), lower number is lower wiyv9273Data from: https://www.neighborhoodatlas.medicine.[facility].edu/. Last address used for [address] 3CommentsNoSex and Gender Information ValueDate RecordedSex Assigned at RbbnnQbvqdt97/22/2021 5:05 PM EDTLegal Sex Tjfwlb8002/20/2014 4:12 PM ESTGender BountdmkReftgz67/22/2021 5:05 PM EDTSexual QjcsymybostTkgjewfz01/22/2021 5:05 PM EDT Last Filed Vital Signs Vital SignReadingTime TakenCommentsBlood Aztrqmjy970/80009/30/2024 8:54 AM EDT Cdnbs756609/30/2024 8:54 AM IOUYuejclqsyar99.4 ??C (97.5 ??F)09/30/2024 8:54 AM EDTRespiratory Chtz699509/30/2024 8:54 AM EDTOxygen Hrrvzghqjb997%09/30/2024 8:54 AM EDTInhaled Oxygen Concentration--Sfjlbp845.3 kg (229 lb 15 oz)09/30/2024 8:54 AM HCYPsyhls473.6 cm (5' 4.02 )09/30/2024 8:54 AM EDTBody Mass Index39.45 09/30/2024 8:54 AM EDT Plan of Treatment DateTypeDepartmentCare Team (Latest Contact Info)Yujutjsgytj33/25/2026 9:15 AM EDTOffice Visit [facility] [address] [place] [address] 1 year follow up09/29/2025 9:30 AM EDTVisit (SP) Office Hematology/Oncology [address] [place] [address] [place] [address] Shweta Masters APRN.VENEREAL DISEASE CONTROL HEAD [address] [place] [address] 1 year follow upHealth MaintenanceDue DateLast DoneCommentsAnnual PCP Team Chronic Disease Visit12/20/2001Anxiety Ddbatnehf82/15/2002Depression Screening 12/20/2001HIV Btcallcdp19/15/2002Hepatitis C Gjmwhilli00/15/2002DTaP,Tdap,Td Vaccine (1 - Tdap)12/20/2002Hepatitis B Vaccine (1 of 3 - 19+ 3-dose series) 12/20/2002Pneumococcal Vaccine (1 of 2 - PCV)12/20/2002Cervical Cancer Screening 12/20/2004HPV Vaccine (1 - 3-dose SCDM series)12/20/2010Mammogram Screening 4Covid-19 Vaccine ( season)2024Influenza Vaccine (#1) 510/, 11/06/2019, 11/06/2019, Additional history exists Procedures Procedure NamePriorityDate/TimeAssociated DiagnosisCommentsCOMPREHENSIVE METABOLIC TLVFHZjdyyfc03/26/2025 8:42 AM EDT Qualitative platelet disorder (HCC) CBC + NKYBJeejcka62/26/2025 8:42 AM EDT Qualitative platelet disorder (HCC) from Last 3 Months Results * (ABNORMAL) COMPREHENSIVE METABOLIC PANEL (09/30/2024 8:42 AM EDT)Component ValueRef RangeTest MethodAnalysis TimePerformed AtPathologist Signature Protein, Total6.76.3 - 8.0 g/dL09/30/2024 9:10 AM EDTNORTMCLAREN OAKLAND LABAlbumin4.53.9 - 4.9 g/dL09/30/2024 9:10 AM EDTNORTMCLAREN OAKLAND LABCalcium, Total9.78.5 - 10.2 mg/dL09/30/2024 9:10 AM EDTNOJE[facility] LABBilirubin, Total0.30.2 - 1.3 mg/dL 09/30/2024 9:10 AM EDBO[facility] LABAlkaline Yuuntpzfeby7286 - 123 U/L09/30/2024 9:10 AM EDTNORTMCLAREN [place]AK[place] YJOBAK99(L)13 - 35 U/L09/30/2024 9:10 AM EDTNORTMCLAREN [place] MNZSCW173 - 38 U/L09/30/2024 9:10 AM EDTNOJE[facility] RBCGqagueu525(H)74 - 99 mg/dL09/30/2024 9:10 AM EDTPOCAHONTAS MEMORIAL HOSPITAL LABComment: The [place] Diabetes Association (ADA) provides guidance for cutoff [...] Standards of Medical Care in Diabetes 2016, [place] Diabetes Association. Diabetes Care. 2016.39(Suppl 1). QAO998 - 21 mg/dL09/30/2024 9:10 AM [facility] Creatinine0.97(H)0.58 - 0.96 mg/dL09/30/2024 9:10 AM [facility] ESJXispxf661693 - 144 mmol/L09/30/2024 9:10 AM [facility] LABPotassium3.6(L)3.7 - 5.1 mmol/L09/30/2024 9:10 AM [facility] HOPLllnrzto63945 - 107 mmol/L09/30/2024 9:10 AM [facility] OIDDS39275 - 30 mmol/L09/30/2024 9:10 AM [facility] LABAnion Iuv456 - 15 mmol/L09/30/2024 9:10 AM [facility] LABEstimated Glomerular Filtration Rate 76>=60 mL/min/1.73m 09/30/2024 9:10 AM [facility] LABComment:Estimated Glomerular Filtration Rate (eGFR) is [...] VolumeCollection TimeReceived TimeBloodBLOOD SPECIMEN / UnknownVenipuncture / Yuqgfur4809/30/2024 8:42 AM EDT09/30/2024 8:42 AM EDT Narrative Authorizing ProviderResult TypeResult StatusJayme Marinelli MDLABORATORYFinal ResultPerforming OrganizationAddressCity/State/ZIP CodePhone Number [facility] [address] [place] [address] * (ABNORMAL) COMPLETE BLOOD COUNT AND DIFFERENTIAL (09/30/2024 8:42 AM EDT) ComponentValueRef RangeTest MethodAnalysis TimePerformed AtPathologist SignatureWBC9.843.70 - 11.00 k/uL09/30/2024 8:47 AM EDTNORTMCLAREN OAKLAND LABRBC4.753.90 - 5.20 m/uL09/30/2024 8:47 AM EDTNORTMCL[facility] XDBZsworuirua02.111.5 - 15.5 g/dL09/30/2024 8:47 AM EDT [facility] YFTFldjwkoqmi66.836.0 - 46.0 %09/30/2024 8:47 AM [facility]TNORTHCHAR[facility] TWCFDZ85.080.0 - 100.0 fL 09/30/2024 8:47 AM EDTNORTMCL[facility] SKEMJF48.726.0 - 34.0 pg09/30/2024 8:47 AM EDTNORTHCHAR[facility] VNTJTHT12.730.5 - 36.0 g/dL09/30/2024 8:47 AM EDTNORTHCHARPER [facility] LABRDW-CV11.9 11.5 - 15.0 %09/30/2024 8:47 AM EDTNORTMCL[facility] LAB Platelet Kzgth366827 - 400 k/uL09/30/2024 8:47 AM EDTNORTMCL[facility] LABMPV9.89.0 - 12.7 fL09/30/2024 8:47 AM EDTNORTMCL[facility] LABNeutrophils %71.7%09/30/2024 8:47 AM EDTNORTMCL[facility]EN [facility] LABAbs Neut7.061.45 - 7.50 09/30/2024 8:47 AM EDTNOJEFF[facility] LABLymphocytes %22.2%09/30/2024 8:47 AM EDNOJEFF[facility] LABAbs Lymph2.181.00 - 4.00 /09/30/2024 8:47 AM EDT [facility] LABMonocytes %3.5%09/30/2024 8:47 AM EDT [facility] LABAbs Mono0.34<0.87 09/30/2024 8:47 AM EDBO[facility] LABEosinophils %0.9%09/30/2024 8:47 AM EDTNOJEFFERSON [facility] LABAbs Eosin0.09<0.46 09/30/2024 8:47 AM EDBO[facility] LABBasophils %0.6%09/30/2024 8:47 AM EDNOJEFF[facility] LABAbs Baso0.06<0.11 09/30/2024 8:47 AM EDBO[facility] LABImmature Granulocytes %1.1% 09/30/2024 8:47 AM EDTNOJEFFERSON [facility] LABAbs Immature Gran 0.11(H)<0.10 [facility] 8:47 AM EDTNOJEFFERSON [facility] LAB NRBC0.0/100 WBC09/30/2024 8:47 AM ED[facility] LAB Absolute nRBC<0.01<0.01 /09/30/2024 8:47 AM EDBO[facility] LABDiff WsvbHaih36/26/2025 8:47 AM EDTNOJEFFERSON [facility] LABSpecimen (Source)Anatomical Location / LateralityCollection Method / Volume Collection TimeReceived TimeBloodBLOOD SPECIMEN / UnknownVenipuncture / Xlkqazk3309/30/2024 8:42 AM EDT09/30/2024 8:42 AM EDT Narrative Authorizing ProviderResult TypeResult StatusVivejoy Marinelli MDLABORATORYFinal ResultPerforming OrganizationAddressCity/State/ZIP CodePhone Number [facility] [address] [place] [address] from Last 3 Months Insurance * Guarantor: Vijaya Del Angel TypeRelation to PatientDate of BirthPhone Billing AddressPersonal/KytclgOfdi78/15/1986 [address] [address] Care Teams Team MemberRelationshipSpecialtyStart DateEnd Date Cas Galicia MD PCP - GeneralFamily Medicine02/20/14 Sai Perez MD [address] [place] [place] [address] Primary Staff PhysicianCardiology07/21/21 Rubens Tim DO [address] [place] [address] [place] [address] ReferringOb/Gyn08/05/21
--- OUTSIDE RECORDS SUMMARY | 2024-12-01 20:07 | XMS_ITS | Clinical Summary ---
Author Organization [facility] Address [address] [place] [address] Care Team Providers Care Industrial Maintenance Mechanic Name Role Phone Cas Galicia MD Primary Care Provider [phone] Allergies Active AllergyReactionsCriticalityNoted JbfcQpcqxkjvTsogzhgv92/19/2023Aspirin GpzgGrg5009/04/2011 Other reaction(s): Angioedema, Unknown, Unknown Wofypwwiz55/17/2023 Other reaction(s): Other (See Comments) Reports like seizure activity and the fall asleep Reports like seizure activity and the fall asleep CefaclorAnaphylaxis,Shortness of breath,LpfgszmxUone54/30/2012 Other reaction(s): Unknown, Unknown Other reaction(s): Unknown Other reaction(s): Unknown Cefuroxime AxetilRash,Shortness of ckgeziWvwq27/30/2012ClindamycinRash,Shortness of breath,OxyeltthDhfv32/19/2015 Other reaction(s): Unknown, Unknown Mercvzcavwc33/02/2023Drospirenone-Ethinyl Qcsfvhrhr12/30/2012 Other reaction(s): Other: See Comments Makers her asthma flair up Other reaction(s): Other: See Comments Skin discoloration of feet with OCPs Skin discoloration of feet with OCPs Makers her asthma flair up Otnpvevothzi04/02/6591RrzlvidfrdMpsbjbigxafVgjb19/18/2021Fish Containing QbwdftmzZwmsrCdlhor54/20/3282XgtsclxetpteHwthwvrw95/16/2015Gloves, Latex With Aloe Vera08/18/2021 Other reaction(s): Unknown JtjblokwfBcopOwkgzh24/30/2012 Other reaction(s): Unknown, Unknown Due to clotting disorder-Aleve Due to clotting disorder-Aleve VambeaxZtzrdargltcSvxl51/30/2012Iodinated Contrast MediaAnaphylaxisHigh 02/23/2014 Other reaction(s): Unknown Does not tolerate with pre-medication Tolerated with pre-medication on 09/22/21 Other reaction(s): Unknown Does not tolerate with pre-medication Vewidt5305/24/2022 Other reaction(s): Unknown Latex, Natural RubberItching,Rash,ItoouigrAyi95/30/2012 Other reaction(s): Unknown Skin cracks and bleeds Skin cracks and bleeds Lavender (Lavandula Angustifolia)PqijggozrmvTkgv60/09/2021evofloxacinRashLow 11/11/2020Macrolide AntibioticsShortness of breath,LkfxauseYzeu25/30/2012 Other reaction(s): Allergy, Unknown, Unknown NkxaikpXkunb42/23/0758Hcbghzhx15/02/2021 Other reaction(s): Angioedema Norethindrone Ac-Eth Yrdsxxbff00/30/2012 Chest hurt and legs turned black -- saw Dr. Jorge London Chest hurt and legs turned black -- saw Dr. Jorge London PenicillinsItching,RceqDeh6909/04/2011 Other reaction(s): Unknown, Unknown, Unknown Povidone-CzpxrbYbijOgq27/19/3290MldkepmetPoecPpc00/30/2012 Other reaction(s): Unknown Shellfish TbjsjpqQrusoBjfomh52/20/2022ulfa (Sulfonamide Antibiotics)Shortness of breath,FmymnbuqRqqk95/14/2016 Other reaction(s): Unknown Other reaction(s): Unknown Sulfamethoxazole-MbihwjznszmuUqgi18/19/2014 Other reaction(s): Other Cant breathe ValacyclovirAnaphylaxis,Shortness of hhrqhxOeje90/31/2022 Medications MedicationSigDispense QuantityRefillsLast FilledStart DateEnd DateStatus albuterol [...] mg disintegrating tablet ondansetron 4 mg disintegrating tambox6701/18/2022ctive sertraline (Zoloft) 50 mg tablet Take 100 [...] creamActive Active Problems ProblemNoted DateDiagnosed DateAbnormal urine lhuezjrz57 Tkmtwuvojdyydl47yspareunia in tfrwyk68ross pdwznivgz50idney stoneOvarian cyst Right inguinal hkbkml56Stress incontinence Vitamin D nhpgmgmbbv39Urethral stricture Implantable loop recorder wakghzf9807/17/2022Syncope and vujswpgy74/19/2023 Overview (05/24/2022): Added automatically from request for surgery [id number] Qualitative platelet npaiwcwt83/27/2023denovirus dvouwqsmi19 RSV (respiratory syncytial virus infection)alpitations Orthostatic fsricpstqzw44/19/2022iffuse pain08/23/2021 01/01/2023Moderate persistent asthma without aaqwhkhpctto71/20/2022llergic reaction to contrast dyedverse food qsdxxyti53/20/2022 01/01/2023lood pressure qxjonbphgay09/19/2022hysical swuhpxzwkmetvn46/19/2022 01/01/2023Orthostatic wjzpjdgtctaktnp22Transient diplopia Subjective muscle vwzzkjtr59nxiety 03/02/2021Hypersomnia with sleep apnea03/02/2021hronic njwm-NTTCH-29 syndrome 5944Lijpdpfpatd72rain fogWord finding yueufcpvsc95Trapezius muscle spasm Autonomic eevkoltslfx56/06/2022History of zzwybtyxmroe24/06/2022spirin allergy TSD (post-traumatic stress disorder)12/24/2020iabetes ygtezpta23/19/2021Migraine without aura and without status migrainosus, not abflzzkttul28/19/2021OSA (obstructive sleep apnea)1Bradycardia hest painllergic xkdoouwf29/16/2016 Geemax7512/22/2015Gastroesophageal reflux jzclhep4512/22/2015Hearing loss12/22/2015 Dakxsoaxzvtbfs56/16/2016Irritable bowel nlyezksk32/16/2016Arachnoid cyst eneralized nqkjjsuq43Encounter for long- term (current) use of mddeyyp443Primary hypothyroidism rachnoid cyst of pituitary gland04/07/2015Bleeding disorder 02/23/2014bdominal pain, acute, right lower ykujyhjt07 Encounters DateTypeDepartmentCare CdbnKainjmpofym98/22/2025 8:30 AM EDTAncillary Procedure [facility] [address] [place] [phone] Awareness of mskhdekgmb46/21/2025Orders Only [facility] [address] [place] [address] Halima Morris MD 10/27/2024 11:20 AM EDTAncillary Procedure [facility] [address] [place] [address] Awareness of uybfhemsfi99/21/2025Orders Only [facility] [address] [place] [phone] Halima Morris MD 09/25/2024 11:10 AM EDTAncillary Procedure [facility] [address] [place] [address] Awareness of wuxftlnuwj97/20/2025Orders Only [facility] [address] [place] [phone] Halima Morris MD from Last 3 Months Family History Medical HistoryRelationNameCommentsHeart attackFatherTim(biological father)Heart diseaseFatherTim(biological father)57Heart failureFatherTim(biological father) Heart murmurFatherTim(biological father)HyperlipidemiaFatherTim(biological father)CancerMaternal GrandfatherJamesAortic aneurysmMaternal VraenxhxanuIih04 CancerMaternal GrandmotherSueAsthmaMotherLeilaniCancerMotherLeilaniCoronary artery diseaseMotherLeilaniDiabetesMotherLeilaniDiabetes type IIMotherLeilani Heart ytwqlfQtlxvgHpynwqp91Fbsar diseaseMotherLeilaniHeart failureMotherLeilani HyperlipidemiaMotherLeilaniHypertensionMotherLeilaniKidney diseaseMotherLeilani Skin cancerMotherLeilaniStrokeMotherLeilanipituitary tumorMotherLeilani [...] part ner or ex-partner?No01/10/2023HQ-2AnswerDate RecordedPatient Health Questionnaire-2 Mwqeh788Exercise Vital SignAnswerDate RecordedOn average, how many days [...] CommentsNoSex and Gender InformationValueDate RecordedSex Assigned at DshavWoxocz08/22/2025 9:10 PM EDTLegal HniTvnhvn53/30/2022 1:25 PM EDTGender RicsjyajHctamn02/22/2025 9:10 PM EDTSexual OrientationHeterosexual or Straight 09/26/2024 9:10 PM EDT Last Filed Vital Signs Vital SignReadingTime TakenCommentsBlood Odbnwgag185/6001/10/2023 12:23 PM EST Qekky648501/10/2023 12:23 PM ESTTemperature--Respiratory Ckes487706/27/2022 9:43 AM EDTOxygen Eiwvkqdcvx54%01/01/2023 2:51 PM ESTInhaled Oxygen Concentration-- Fbiqyh152 kg (227 lb)08/12/2024 2:49 PM SQYZlzrdn829.6 cm (5' 4 )08/12/2024 2:49 PM EDTBody Mass Index38.9608/12/2024 2:49 PM EDT Plan of Treatment Health MaintenanceDue DateLast DoneCommentsDiabetes: Retinopathy Screening 12/20/1993Varicella Vaccines (1 of 2 - 13+ 2-dose series)12/20/1996Diabetes: Urine Protein Uzirpcnci55/15/2003Hepatitis B Vaccines (1 of 3 - 19+ 3-dose series)12/20/2002Pneumococcal Vaccine: Pediatrics (0 to 5 Years) and At-Risk Patients (6 to 64 Years) (1 of 2 - PCV)12/20/2002Adult Wswwvrz8512/20/2005HPV Vaccines (1 - 3-dose SCDM series)12/20/2010HPV/Ijtjhf7512/20/2013Cervical Cancer Smeolmvui36/10/2017Pap Smear03/17/Diabetes: Hemoglobin A1C /7255Vjzdpikhh30/15/2024OVID-19 Vaccine (1 - season) 2024Influenza Vaccine (#1), 11/06/2019, 10/27/2019 Depression Tsaycbjka32Zoster Vaccines (1 of 2)12/20/2033HIB VaccinesAged OutNo longer [...] DateModel / Serial / LotMonitor,Cardiac,Biomonitor Iii - [id number] - [id number] Implanted:Qty: 1 on 06/27/2022 by [id number] / [id number] / Procedures Procedure NamePriorityDate/TimeAssociated DiagnosisCommentsCARDIAC DEVICE CHECK CHECK - POIQIZKwtyokm09/23/2025 12:14 PM EDT Awareness of heartbeats CARDIAC DEVICE CHECK - REMOTE - LOOP RECORDER (ILR)Igtryra7711/25/2024 12:00 AM EDTCARDIAC DEVICE CHECK CHECK - GKDEELKeohkuy84/25/2025 10:15 AM EDT Awareness of heartbeats CARDIAC DEVICE CHECK - REMOTE - LOOP RECORDER (ILR)Ycpovrh0810/26/2024 12:00 AM EDTCARDIAC DEVICE CHECK CHECK - YFKVGCJopuwdw00/22/2025 10:33 AM EDT Awareness of heartbeats CARDIAC DEVICE CHECK - REMOTE - LOOP RECORDER (ILR)Dfqwykc8609/24/2024 12:00 AM EDTfrom Last 3 Months Results [...] Narrative Authorizing ProviderResult TypeResult StatusSabaylee Jaky Morris [facility] IMPLANTABLE CARDIAC DEVICE PROCEDURESFinal Result from Last 3 Months Insurance * Guarantor: Vijaya Tran TypeRelation to PatientDate of BirthPhone Billing AddressPersonal/OnxnehLxaj25/15/1986 [address] [address] Care Teams Team MemberRelationshipSpecialtyStart DateEnd Date Cas Galicia MD [address] [place] [address] PCP - General02/17/22
--- OUTSIDE RECORDS SUMMARY | 2024-12-01 20:07 | XMS_ITS | Clinical Summary ---
Author Organization [facility] Address [address] [place] [address] Phone Care Team Providers Care Phonograph Needle Tip Maker Name Role Phone Cas Galicia MD Primary Care Provider + Social History Tobacco UseTypesPacks/DayYears UsedDateSmoking Tobacco: Never Assessed CommentsUnknownSex and Gender InformationValueDate RecordedSex Assigned at Not on fileLegal EemDiukfo11/25/2022 4:23 PM ESTGender IdentityNot on fileSexual OrientationNot on file Plan of Treatment Not on file Care Teams Team MemberRelationshipSpecialtyStart DateEnd Date Cas Galicia MD PCP - General05/11/15
--- OUTSIDE RECORDS SUMMARY | 2024-12-01 20:07 | XMS_ITS | Encounter Summary ---
Author Organization [facility] Address [address] [place] [address] Care Team Providers Care Career Technical Education Teacher Name Role Phone Cas Galicia MD Primary Care Provider [phone] Encounter Details DateTypeDepartmentCare Team (Latest Contact Info)Nyaceovamjq32/27/2025amboo flowsheet NIRAJ Fernandez OBGYN [address] [place] [address] Rubens Tim DO [address] [facility] [facility] [address] Kathie Fernandez, [facility] [address] Social History Tobacco UseTypesPacks/DayYears UsedDateSmoking Tobacco: NeverSmokeless [...] other ways by your partner or ex-partner?Patient gechjvoc34/04/2025Within the last year, have you been kicked, [...] you get together with friends or relatives?Patient huybvdbz66/04/2025How often do you attend gnosticism or zoroastrian services?Patient utxlpvvl10/04/2025Do you belong to any clubs or organizations such as gnosticism groups, unions, Ge.tt or athletic groups, or school groups?No08/08/2024How often do you attend meetings of the clubs or organizations you belong to?Patient ajetwbyn16/04/2025re you , , , , never , or living with a partner?Ndexedv6408/08/2024UDIT-CAnswerDate RecordedQ1: How often do you have a [...] like food, housing, medical care, and heating?Somewhat hard08/08/2024[facility] - Occupational Stress QuestionnaireAnswerDate [...] pay the mortgage or rent on time?Patient wihfezta82/03/2024In the last 12 months, how many places have you lived?1 04/08/2023In the last 12 months, was there a time when you did not have a steady place to sleep or slept in ashelter (including now)?Patient insrpior97/03/2024 Housing Stability Vital SignAnswerDate RecordedIn the last 12 months, was there a time when you were not able to pay the mortgage or rent on time?No08/08/2024In the past 12 months, how many times have you moved where you were living?0 08/08/2024t any time in the past 12 months, were you homeless or living in a senior care (including now)?No08/08/2024CommentsNoSex and Gender Information ValueDate RecordedSex Assigned at BirthNot on fileLegal SixMvsbet10/15/2023 6:40 PM EDTGender IdentityNot on fileSexual OrientationNot on filedocumented as of this encounter Plan of Treatment DateTypeDepartmentCare Team (Latest Contact Info)Rtlcblviqpf16/03/2026 8:20 AM EDTOffice Visit [facility] [address] [place] [address] Jodi Holden, PONCE [address] [place] [address] [place] [address] 12/07/2025 2:00 PM ESTProcedure Visit [facility] [address] [place] [address] [place], Rubens, [address] [place] [address] documented as of this encounter Visit Diagnoses Not on filedocumented in this encounter Care Teams Team MemberRelationshipSpecialtyStart DateEnd Date Cas Galicia MD PCP - GeneralFamily Medicine04/09/23documented as of this encounter
--- OUTSIDE RECORDS SUMMARY | 2024-12-01 20:07 | XMS_ITS | Encounter Summary ---
Author Organization [facility] Address [address] [place] [address] Care Team Providers Care Master Certified Rv Technician Name Role Phone Cas Galicia MD Primary Care Provider [phone] Reason for Visit * ReasonCommentsMed Change Request Encounter Details DateTypeDepartmentCare Team (Latest Contact Info)Vnesnyhfyiv86/27/2025Refill N[facility]ick [facility] [address] [facility] [address] [place] [address] Prisclia Gonzalez, BRANDY [address] [facility] [address] [place] [address] Postmenopausal HRT (hormone replacement therapy) Social [...] other ways by your partner or ex-partner?Patient lhjbuplj28/04/2025Within the last year, have you been kicked, [...] you get together with friends or relatives?Patient ndlcsyaa44/04/2025How often do you attend zoroastrianism or jewish services?Patient gimyyton33/04/2025Do you belong to any clubs or organizations such as zoroastrianism groups, unions, fraChumby or athletic groups, or school groups?No08/08/2024How often do you attend meetings of the clubs or organizations you belong to?Patient ezhmywss66/04/2025re you , , , , never , or living with a partner?Ptfstki8208/08/2024UDIT-CAnswerDate RecordedQ1: How often do you have a [...] food, housing, medical care, and heating?Somewhat hard08/08/2024[place] [facility] - Occupational Stress QuestionnaireAnswerDate [...] pay the mortgage or rent on time?Patient orqeptpj89/03/2024In the last 12 months, how many places have you lived?1 04/08/2023In the last 12 months, was there a time when you did not have a steady place to sleep or slept in ashelter (including now)?Patient yoqmstkk38/03/2024 Housing Stability Vital SignAnswerDate RecordedIn the last 12 months, was there a time when you were not able to pay the mortgage or rent on time?No08/08/2024In the past 12 months, how many times have you moved where you were living?0 08/08/2024t any time in the past 12 months, were you homeless or living in a fdc (including now)?No08/08/2024CommentsNoSex and Gender Information ValueDate RecordedSex Assigned at BirthNot on fileLegal WgoPokvet82/15/2023 6:40 PM EDTGender IdentityNot on fileSexual OrientationNot on filedocumented as of this encounter Plan of Treatment DateTypeDepartmentCare Team (Latest Contact Info)Hrqnfnowgdb46/03/2026 8:20 AM EDTOffice Visit [facility] [address] [place] [address] Jodi Holden, PONCE [address] [place] [address] 12/07/2025 2:00 PM ESTProcedure Visit [facility] [address] [facility] [address] [place] [address] Rubens Tim, [address] [place] [address] documented as of this encounter Visit Diagnoses Diagnosis Postmenopausal HRT (hormone replacement therapy) Need for prophylactic hormone replacement therapy (postmenopausal) documented in this encounter Care Teams Team MemberRelationshipSpecialtyStart DateEnd Date Cas Galicia MD PCP - GeneralFamily Medicine04/09/23documented as of this encounter
--- OUTSIDE RECORDS SUMMARY | 2024-12-01 20:07 | XMS_ITS | Clinical Summary ---
Author Organization [facility] Address [address] [facility] [facility], [address] [place] [address] Care Team Providers Care Commercial Collections Specialist Name Role Phone Cas Galicia MD Primary Care Provider + Allergies Active AllergyReactionsCriticalityNoted DateCommentsZolpidemOther (See Comments) 06/21/2022 Muscle spasms PduwgklFdadRue18/30/2012CefaclorShortness Of XyugiwWuvy31/30/2012Cefuroxime SkgcceThkaClg42/30/2012Clindamycin/PisfusyevtEdeuHuk87/30/2012Erythromycin Shortness Of IpjymmZhvb04/30/2012Eucalyptus Oil10/23/2020GatifloxacinDiarrhea 12/15/20205743JlbzhzlOkcbwckzksxTnmb22/30/2012LatexSwelling,XpvvDmn7009/04/2011 Lavender WeuUcpzgdeezqdSbcg01/09/2021Ibuprofen PljmevpnaiBxljbo64/30/2012 Due to clotting disorder-Aleve Norethindrone-Eth Qqxsomhrr52/30/2012 Chest hurt and legs turned black -- saw Dr. Jorge London VsqiwatizcjZuppQar09/30/2012Shellfish Protein-Containing Drug ProductsHives,Rash Low01/08/2022ulfa Jnavehhtttp62/14/2016ValacyclovirShortness Of BreathHigh 12/21/20218357QkdtpxhRlyxk83/23/2514Kqtio92/30/2012upropionOther (See Comments) 06/21/2022 Reports like seizure activity and the fall asleep Drospirenone-Ethinyl Szcscrtia00/30/2012 Makers her asthma flair up Medications MedicationSigDispense [...] Take 100 mg by mouth once as tykbpb3108/24/2021ctive B-12, Methylcobalamin, 1000 MCG SUBL DISSOLVE 1 [...] DateDiagnosed DateRSV (respiratory syncytial virus infection) 2Adenovirus frjvoqsjs50/06/2022Acute asthma exwltylmwrja25/06/2022 Diabetes /05/2022Asthma exacerbation leztiir79/04/2022Abdominal pain, acute, right lower iqqjowku02/24/2012 Encounters DateTypeDepartmentCare CkcuVdpswemimwd97/14/2025 10:45 AM EDTOffice Visit [facility]ULM Part of [address] [address] Nabor Yancey, [employer] - EDI ARCHITECT Multiple environmental allergies (Primary Dx); Moderate persistent asthma without complication; Chronic sinusitis, unspecified location; KATELIN (obstructive sleep apnea)09/18/2024[facility] Part of [address] [address] Nabor Yancey, [employer] - EDI ARCHITECT 09/18/2024[facility] Part of [address] [address] Nabor Yancey, AIR[employer] - EDI ARCHITECT 09/16/2024Orders Only [facility] OUTRE[facility]UL Part [place] [phone] Loraine Ponce MA Moderate persistent asthma without etqdphctxtze43/12/2025bstract [facility] OUTRE[facility] PUL Part of [address] [address] David Mcclure MD from Last 3 Months Immunizations ImmunizationAdministration DatesNext DueInfluenza Virus Pmtyguu4211/20/2019 Family History Medical HistoryRelationNameCommentsDiabetesFatherHeart DiseaseFatherHypertension FatherDiabetesMotherHypertensionMotherRelationNameStatusCommentsFatherDeceased MotherDeceased Social History Tobacco UseTypesPacks/DayYears UsedDateSmoking Tobacco: NeverSmokeless Tobacco: Never Tobacco Cessation:Counseling Given: Not Answered Alcohol UseStandard Drinks/WeekCommentsNo0 (1 standard drink = 0.6 oz pure alcohol)PHQ-2AnswerDate RecordedPHQ-9 Total Shynu9252/20/2022Interpersonal Safety Domain Source: IP Abuse ScreeningAnswerDate RecordedRead-Only, Retired: Physical MobiiXchukj10/13/2023Read-Only, Retired: Verbal SthlnAntvos80/13/2023 Read-Only, Retired: Emotional fhixqAyfpzy31/13/2023Read-Only, Retired: Financial HtbtpHxtsvo59/13/2023Read-Only, Retired: Sexual fuackIkjqda10/13/2023 CommentsNoSex and Gender InformationValueDate RecordedSex Assigned at BirthNot on fileLegal BscTgpfet45/10/2013 10:07 AM ESTGender IdentityNot on fileSexual OrientationNot on fileOccupationIndustryJob Start DateJob End Dateregistered nurseNot on fileNot on fileNot on file Last Filed Vital Signs Vital SignReadingTime TakenCommentsBlood Etmzaiwr965/6408 11:02 AM EDT Szyxm772309/18/2024 11:02 AM JGUJjnfeclebnn99.4 ??C (97.5 ??F)09/18/2024 11:02 AM EDTRespiratory Wwlg983609/18/2024 11:02 AM EDTOxygen Ogfzosyesz67%09/18/2024 11:02 AM EDTInhaled Oxygen Concentration--Bhmlpv246.4 kg (225 lb 12.8 oz)09/18/2024 11:02 AM XBPDycrxt118.6 cm (5' 4 )09/18/2024 11:02 AM EDTBody Mass Index38.76 09/18/2024 11:02 AM EDT Plan of Treatment DateTypeDepartmentCare Team (Latest Contact Info)Yjqopejguoc53/12/2026 9:45 AM ESTOffice Visit [facility] Part of [address] [address] David Mcclure MD [address] [place] [address] KATELIN; 6 mth follow up with [facility] [employer] app DateLast Done CommentsDiabetic foot exam12/20/19935430Xjufgz20/15/1994Depression Rzwgzt8912/21/1995 Varicella vaccine (1 of 2 - 13+ 2-dose series)12/20/1996HIV cmqssr9312/20/1998 Diabetic Alb to Cr ratio (uACR) test12/20/2001Diabetic retinal exam12/20/2001 Hepatitis C ddquds0512/20/2001DTaP/Tdap/Td vaccine (1 - Tdap)12/20/2002Hepatitis B vaccine (1 of 3 - 19+ 3-dose series)12/20/2002Pneumococcal 0-49 years Vaccine (1 of 2 - PCV)12/20/2002A1C test (Diabetic or Prediabetic)/06/2021, 09/09/2011GFR test (Diabetes, CKD 3-4, OR last GFR 15-59)/, 01/30/2022, 01/09/2022, Additional history existsBreast cancer uvgpqf1012/21/2023 Flu vaccine (#1), 11/06/2019, 10/27/2019COVID-19 Vaccine ( season)5Cervical cancer screenDiscontinuedPap smear Kvrygheoztzi74/10/2014, 02/23/2012Diabetes ojavgxLfnvsfsgzvcn07/05/2022, 09/09/2011, 09/09/2011HPV (without or with Pap)DiscontinuedHPV vaccine [...] METABOLIC PANEL STAT102/17/2022 4:10 PM EST HEMOGLOBIN E2BBtwnjqx73/05/2022 5:40 AM EST [facility] GZKJXIKCSjygfwh42/10/2014 10:13 AM EST from Last 3 Months or Most Recently Relevant to Health Maintenance Results * (ABNORMAL) Basic Metabolic Panel (12/18/2022 4:10 PM EST)ComponentValueRef RangeTest MethodAnalysis TimePerformed AtPathologist FfcxvglfuPctesw762531 - 144 mmol/L102/17/2022 4:10 PM [facility] LABPotassium4.0 3.7 - 5.3 mmol/L102/17/2022 4:10 PM [facility] LABChloride 10010 - 107 mmol/L102/17/2022 4:10 PM [facility] FYJXV655 20 - 31 mmol/L102/17/2022 4:10 PM [facility] LABAnion Gap 109 - 17 mmol/L102/17/2022 4:10 PM [facility] CWNNcjpklk82 70 - 99 mg/dL12/18/2022 4:10 PM [facility] LJCQKK703 - 20 mg/dL12/18/2022 4:10 PM [facility] LABCreatinine1.0(H)0.5 - 0.9 mg/dL12/18/2022 4:10 PM [facility] LABEst, Glom Filt Rate>60>60 mL/min/1.64a28112/18/2022 4:10 PM [facility] LABComment: ? These results are not [...] therapy that affects renal tubular secretion. BUN/Creatinine Beaam624 - 4:10 PM [facility] LABCalcium9.58.6 - 10.4 mg/dL12/18/2022 4:10 PM [facility] LABSpecimen (Source)Anatomical Location / LateralityCollection Method / Volume Collection TimeReceived TimeBloodBLOOD SPECIMEN / Wqlrpgk9712/18/2022 4:10 PM EST 12/18/2022 4:21 PM EST Narrative Authorizing ProviderResult TypeResult StatusMelissa Arnold MDCHEMISTRY ORDERABLES Final ResultPerforming OrganizationAddressCity/State/ZIP CodePhone Number [facility] [address] [place] [address], [facility] [phone] * Hemoglobin A1c (01/09/2022 5:40 AM EST)ComponentValueRef RangeTest Method Analysis TimePerformed AtPathologist SignatureHemoglobin A1C5.74.0 - 6.0 % 01/09/2022 5:40 AM ESTMERDarkstrand LABORATORIESEstimated Avg Bgmbdbp532ob/dL 01/09/2022 5:40 AM [facility] H[facility]PITALDarkstrand LABORATORIESComment: The ADA and AACC recommend providing the estimated average glucose result to permit better patient understanding of their HBA1c result. Specimen (Source)Anatomical Location / LateralityCollection Method / Volume Collection TimeReceived Time12/06/2021 5:40 AM EST01/09/2022 12:31 PM EST Narrative Authorizing ProviderResult TypeResult StatusShirnoah Rosado [employer] - EDI ARCHITECT CHEMISTRY ORDERABLESFinal ResultPerforming OrganizationAddressCity/State/ZIP CodePhone Number [facility] [address] [place] [address], [facility] [phone] [employer] [address] [place] [address] [phone] * W[employer]OL [employer] D[employer] Cytology (03/17/2013 10:13 AM EST)ComponentValueRef RangeTest Method Analysis TimePerformed AtPathologist SignatureCytology Report(NOTE) [id number] [facility] ??LABORATORIES CONSULTING PATHOLOGIST [facility] [address] [place] [address]. ??[place], [place] [address] GYNECOLOGIC CYTOLOGY REPORT Patient Name: VIJAYA TRAN MR#: [id number] Specimen #[id number] Final Diagnosis CERVICAL MATERIAL, (THIN PREP VIAL): Specimen Adequacy: ?Satisfactory for evaluation. ?- Paucity/absence of endocervical transformation zone component. Descriptive Diagnosis: ?Negative for intraepithelial lesion or malignancy. TANYA Luna(ASCP) Electronically Signed Out dg03/21/2013 Source: 1: CERVICAL MATERIAL, (THIN PREP VIAL)03/21/2013 12:00 AM [facility] LABSpecimen (Source)Anatomical Location / LateralityCollection Method / VolumeCollection TimeReceived Time03/17/2013 10:13 AM EST03/17/2013 10:13 AM EST Narrative Authorizing ProviderResult TypeResult StatusJennifer Glance DOPATHOLOGY/CYTOLOGY ORDERABLESFinal ResultPerforming OrganizationAddressCity/State/ZIP CodePhone Number [facility] [address] [place] [address], [facility] [phone] from Last 3 Months or Most Recently Relevant to Health Maintenance Insurance * Guarantor: Vijaya TranKrishna TypeRelation to PatientDate of PhoneBilling AddressPersonal/HgsjgfJsbj20/15/[address] [address] Advance Directives TypeDate RecordedPatient RepresentativeExplanationACP-Advance Cinwospmu89/8/2022 2:29 PMACP-Power of Stludolu51/8/2022 2:29 PM * Full Code (Latest Code Status on File) Date ActivatedDate WpgansknyjyFjqcoxzo18/4/2022 5:06 PM01/11/2022 3:07 PM * Full Code Date ActivatedDate IejbicqnhpyMnwsclfn32/24/2012 10:09 AM12/31/2011 4:00 PM NameRelationshipHealthcare Agent RelationshipCommunicationJustin WilliamsSpouse Primary Decision Maker* * Care Teams Team MemberRelationshipSpecialtyStart DateEnd Date Cas Galicia MD [facility]09/04/11
--- OUTSIDE RECORDS SUMMARY | 2024-12-01 20:07 | XMS_ITS | Clinical Summary ---
Author Organization [facility] tem Address [facility] [address] [place] [address] Care Team Providers Care Thermoforming Operator Name Role Phone Cas Galicia MD Primary Care Provider [phone] Allergies Active AllergyReactionsCriticalityNoted DateCommentsGloves, Latex With Aloe Vera 08/18/2021 Other reaction(s): Unknown ZucfwpfAfzdOya76/30/2012upropionOther (See Comments)06/21/2022 Reports like seizure activity and the fall asleep CefaclorAnaphylaxis,Swelling,Shortness Of ItvckuMqva63/30/2012 Other reaction(s): Unknown ClindamycinRash,Shortness Of Breath,BqysxjidUcev01/19/2015Drospirenone-Ethinyl Fxlayavlc04/30/2012 Makers her asthma flair up Other reaction(s): Other: See Comments Skin discoloration of feet with OCPs ErythromycinShortness Of Breath,LhoqbeknQkea07/30/2012EucalyptusAnaphylaxisHigh 12/15/2020Fish Containing BbyldbctYdymaAbbbic42/20/2022GatifloxacinDiarrhea 12/15/20209324DshngbeztKbnbLhxktd08/30/2012 Due to clotting disorder-Aleve QrqtwzzPmpepvzviarZbnw00/30/2012Iodinated Contrast MediaAnaphylaxisHigh 02/23/2014 Other reaction(s): Unknown Does not tolerate with pre-medication Latex, Natural RubberSwelling,Itching,ZnvrEjg3709/04/2011 Skin cracks and bleeds Lavender (Lavandula Angustifolia)WejsebeysxvLzte48/09/2021LevofloxacinRashLow 12/15/20208788ImefxhjHptkx82/23/5633Chbguehitvybq02/26/2022Norethindrone Ac-Eth Jdlrwpsik63/30/2012 Chest hurt and legs turned black -- saw Dr. Jorge Lnodon PenicillinsItching,JctqKvn7309/04/2011Povidone-HbooznFhalKtp48/19/2023Rofecoxib JbnbGdg2709/04/2011Shellfish NpcunhrVzxtuBmsozd46/20/2022ulfa (Sulfonamide Antibiotics)Shortness Of InbxiqEkko50/10/9449Nijnwrvcfcfksdap49/14/2022 Other reaction(s): Unknown Sulfamethoxazole-TrimethoprimOther (See Comments)High01/23/2014 Cant breathe UooyjynbinmgWxvfbuwdicwJwhp86/31/2022ZolpidemOther (See Comments)High05/24/2022 Uncontrolable limb movements Medications * [...] in the morning.5Active Active Problems ProblemNoted DateDiagnosed BehtAmdktme04/26/2022OVID- long hauler manifesting chronic neurologic ahmzzfte99/26/2022OVID- long hauler manifesting chronic kutfldu3403/02/2021Memory mmljvxgqdjof27/26/2022rain fog03/02/2021Word finding /26/1555Fxazlyuzeba13/26/2022Trapezius muscle spasm03/02/2021 Hypersomnia with sleep apnea03/02/2021spirin lnfijid8302/10/2021ost-viral ludlgymx52/06/2022 Overview (02/10/2021): Autonomic dysfunction History of hrhfmnqiqstc72/06/2022Autonomic rznrwgtikhl51/06/2022radycardia 12/24/2020hest pain12/24/20201092Bupbhbdfww94/19/2021GERD (gastroesophageal reflux disease)12/24/20208239Uakcusnztekebe15/19/2021Migraine without aura and without status migrainosus, not tdwzgxbjayr26/19/2021OSA (obstructive sleep apnea) 12/24/2020iabetes cumjmoqq95/19/2021TSD (post-traumatic stress disorder) 12/24/2020rachnoid cyst12/22/2015 Resolved Problems ProblemNoted DateDiagnosed DateResolved WtopLQBIY86/19/202105/ Encounters DateTypeDepartmentCare SiznJklgazblqrj02/23/2025Orders Only [facility] [address] [address] Akila Ballard MD 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)11/26/2024Results Follow-Up [facility] Adult Endocrinology, A Department of [facility] [address] [address] Akila Ballard MD T4, free, TSH, T3, free11/24/2024 10:00 AM EDTOffice Visit [facility] Adult Endocrinology, A Department of [facility] [address] [address] Akila Ballard MD 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)10/28/2024Travel 09/22/2024Refill [facility] Neurology, A Department of [facility] [address] [address] Alina Garcia CMA 09/15/2024Refill [facility] Neurology, A Department of [facility] [address] [address] Stella Flowers, BAIL ATTACHER-MACY Migraine without aura and without status migrainosus, [...] drink = 0.6 oz pure alcohol)PHQ-2AnswerDate RecordedTotal Fofrm043/30/2023ChildcareAnswerDate DdhvyjjzWghoszipyXyjeaog18/12/2019EmploymentAnswerDate RecordedEmploymentUnknown 07/17/2018Hunger ScreeningAnswerDate RecordedWithin the past 12 months we worried whether our food would run out before we got money to buy more.Never True11/22/2023Within the past 12 months the food we bought just didn't last and we didn't have money to get more.Never True4Purpose - LifeAnswerDate RecordedPurpose and direction in xhutEwyflgy21/11/2021CommentsNoSex and Gender InformationValueDate RecordedSex Assigned at MpgksJiyggz20/09/2022 2:48 PM EDTLegal BnbJdvyci49/06/2015 12:02 PM EDTGender VlsyijqzQjlvop39/09/2022 2:48 PM EDTSexual AhxdmmtvmbiPvnxqrwt91/09/2022 2:48 PM EDT Last Filed Vital Signs Vital SignReadingTime TakenCommentsBlood Urtjxuru754/7510 10:12 AM EDT Phbmb934211/24/2024 10:12 AM FQMAswlduavxpr09.6 ??C (97.9 ??F)10/28/2024 8:18 AM EDTRespiratory Dhxm1731 10:12 AM EDTOxygen Nspwclmcbi89%05/18/2021 10:24 AM EDTInhaled Oxygen Concentration--Nqqdcn011.2 kg (234 lb 3.2 oz)11/24/2024 10:12 AM IQLBpvfwf266.6 cm (5' 4 )11/24/2024 10:12 AM EDTBody Mass Index40.2 11/24/2024 10:12 AM EDT Plan of Treatment DateTypeDepartmentCare Team (Latest Contact Info)Lwuctmorisn88/21/2025 10:30 AM ESTOffice Visit [facility] Neu[facility], A Department of [facility] [address] [phone] Stella Flowers, BAIL ATTACHER-PROCESS CONTROLS TECHNICIAN [address] [phone] 01/05/2025 12:30 PM ESTClinical Support [facility] - ENT [address] [place] [address], [address] [place] [address] [place] Trivedi [facility]-AUTOMATED LOGISTICS SPECIALIST [address] [place] [address] [address] [place] [phone] 01/27/2025 4:15 PM ESTOffice Visit [facility] [address] [place] [address], [address] [place] [address] Terri Smith MD [address] [facility] [address] [place] [address] 11/24/2025 10:00 AM EDTOffice Visit [facility] Adult Endocrinology, A Department of [facility] [address] [facility] [address] [place] [address] Akila Ballard MD 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 T4, SEBOUaxcuxo17/20/2025 11:00 AM EDT 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 CT SINUSES WO SUGKIviklqm39/26/2025 10:22 AM EDTfrom Last 3 Months Results * T3, free (11/24/2024 11:00 AM EDT)ComponentValueRef RangeTest MethodAnalysis TimePerformed AtPathologist SignatureFREE T32.652.50 - 3.90 pg/mL11/24/2024 1:55 PM [facility] LABORATORYSpecimen (Source)Anatomical Location / LateralityCollection Method / VolumeCollection TimeReceived Time BloodVenous blood / UnknownVenipuncture / Lgyoxef7111/24/2024 11:00 AM EDT 11/24/2024 11:00 AM EDT Narrative Authorizing ProviderResult TypeResult StatusAkila Ballard MDGOODLAND [facility] BLOOD ORDERABLESFinal ResultPerforming OrganizationAddressCity/State/ZIP CodePhone Number [facility] [address] [place] [address], * TSH (11/24/2024 11:00 AM EDT)ComponentValueRef RangeTest MethodAnalysis Time Performed AtPathologist SignatureTSH0.890.49 - 4.67 uIU/mL11/24/2024 1:56 PM [facility] LABORATORYSpecimen (Source)Anatomical Location / LateralityCollection Method / VolumeCollection TimeReceived TimeBloodVenous blood / UnknownVenipuncture / Rwexbka1211/24/2024 11:00 AM EDT1 11:00 AM EDT Narrative Authorizing ProviderResult TypeResult StatusAkila MILAN BLOOD ORDERABLESFinal ResultPerforming OrganizationAddressCity/State/ZIP CodePhone Number [address] [place] [address], * T4, free (11/24/2024 11:00 AM EDT)ComponentValueRef RangeTest MethodAnalysis TimePerformed AtPathologist SignatureFREE T40.610.61 - 1.60 ng/dL11/24/2024 1:57 PM [facility] LABORATORYSpecimen (Source)Anatomical Location / LateralityCollection Method / VolumeCollection TimeReceived Time BloodVenous blood / UnknownVenipuncture / Wanhkif7511/24/2024 11:00 AM EDT 11/24/2024 11:00 AM EDT Narrative Authorizing ProviderResult TypeResult StatusAkila MILAN BLOOD ORDERABLESFinal ResultPerforming OrganizationAddressCity/State/ZIP CodePhone Number [address] [place] [address], * CT sinuses without contrast (10/31/2024 10:22 AM EDT)Anatomical Region LateralityModalityNeuro, Face, Neuro CoveraN/AComputed Tomography Narrative Authorizing ProviderResult TypeResult StatusNot In System Ref ProvIMG CT ORDERABLESFinal Result from Last 3 Months Insurance * Guarantor: Vijaya Tran TypeRelation to PatientDate of BirthPhone Billing AddressPersonal/CjxthbXnst07/15/1986 [address] [address] MemberSubscriberPlan / Payer (Effective 2022-Present)Name:Vijaya Tran Member ID:[id number] Relation to Subscriber:SelfName:Vijaya Tran Subscriber ID:[id number] Payer ID:[id number] (NAIC) Type:Not on file Address: [address] MemberSubscriberPlan / Payer (Effective 2024-Present)Name:Vijaya Tran Relation to Subscriber:SpouseName:VINNY TRAN Date of :1986 Address: [address] [address] Payer ID:[id number] (NAIC) Type:Not on file Address: [address] [place] [id number] Care Teams Team MemberRelationshipSpecialtyStart DateEnd Date Cas Galicia MD PCP - GeneralFamily Baimyfey02/14/21
--- OUTSIDE RECORDS SUMMARY | 2024-12-01 20:07 | XMS_ITS | Encounter Summary ---
Author Organization [facility] Address [address] [place] [address] Care Team Providers Care Market News Reporter Name Role Phone Cas Galicia MD Primary Care Provider [phone] Encounter Details DateTypeDepartmentCare Team (Latest Contact Info)Skcioptqwda38/22/2025Travel Social History Tobacco UseTypesPacks/DayYears UsedDateSmoking Tobacco: NeverSmokeless [...] other ways by your partner or ex-partner?Patient ljuiicrx26/04/2025Within the last year, have you been kicked, [...] or relatives?Patient /04/2025How often do you attend voodoo or voodoo services?Patient qmnacaib52/04/2025Do you belong to any clubs or organizations such as voodoo groups, unions, fraternal or athletic groups, or school groups?No08/08/2024How often do you attend meetings of the clubs or organizations you belong to?Patient /04/2025re you , , , , never , or living with a partner?Odmxjpo5008/08/2024UDIT-CAnswerDate RecordedQ1: How often do you have a [...] like food, housing, medical care, and heating?Somewhat hard08/08/2024[facility] [place] of Occupational Health - Occupational Stress QuestionnaireAnswerDate [...] pay the mortgage or rent on time?Patient sxeptgnc76/03/2024In the last 12 months, how many places [...] were you homeless or living in a prison (including now)?No08/08/2024CommentsNoSex and Gender Information ValueDate RecordedSex Assigned at BirthNot on fileLegal LdjRupxxr61/15/2023 6:40 PM EDTGender IdentityNot on fileSexual OrientationNot on filedocumented as of this encounter Plan of Treatment DateTypeDepartmentCare Team (Latest Contact Info)Sjmnglebcsq06/03/2026 8:20 AM EDTOffice Visit [facility] [address] [place] [address] Jodi Holden, PONCE [address] [place] [address] 12/07/2025 2:00 PM ESTProcedure Visit [facility] [place] [facility] [address] [facility] [place] [address] Rubens Tim DO [address] [place] [address] documented as of this encounter Visit Diagnoses Not on filedocumented in this encounter Care Teams Team MemberRelationshipSpecialtyStart DateEnd Date Cas Galicia MD PCP - GeneralFamily Medicine04/09/23documented as of this encounter
== END 2024-12-01 20:04 | disposition home or self-care (01) ==
LOC: LAB 20:03
PROVIDERS: PCP Family Medicine; Visit Provider Obstetrics & Gynecology
DX: Z01.419 Encounter for gynecological examination (general) (routine) without abnormal findings (principal)

== ENCOUNTER 2024-12-10 09:30 | Outpatient (OUT) | payer BC, SELFPAY ==
--- OUTSIDE RECORDS SUMMARY | 2024-11-26 07:30 | XMS_ITS | Encounter Summary ---
Author Organization [facility] Address [address] [place] [address] Care Team Providers Care Auto Machinist Name Role Phone Cas Galicia MD Primary Care Provider [phone] Encounter Details DateTypeDepartmentCare Team (Latest Contact Info)Yzluqpdmbmu33/22/2025 8:30 AM EDTAncillary Procedure [facility] Cardiology Clinic [address] [place] [address] Awareness of heartbeats Social History Tobacco UseTypesPacks/DayYears UsedDateSmoking Tobacco: NeverPassive Smoke Exposure: NeverSmokeless Tobacco: NeverAlcohol UseStandard Drinks/WeekComments Not Currently0 (1 standard drink = 0.6 oz pure alcohol)occHumiliation, Afraid, Rape, and Kick questionnaireAnswerDate RecordedWithin the last year, have you been afraid of your partner or ex-partner?No01/10/2023Within the last year, have you been humiliated or emotionally abused in other ways by your partner or ex-partner?No01/10/2023Within the last year, have you been kicked, hit, slapped, or otherwise physically hurt by your partner or ex-partner?No01/10/2023Within the last year, have you been raped or forced to have any kind of sexual activity by your partner or ex-partner?No01/10/2023HQ-2AnswerDate RecordedPatient Health Questionnaire-2 Pfpfl887Exercise Vital SignAnswerDate RecordedOn average, how many days per week do you engage in moderate to strenuous exercise (like a brisk walk)?7 days07/21/2022On average, how many minutes do you engage in exercise at this level?30 min07/21/2022UT Safety & EnvironmentAnswerDate RecordedWithin the last year, have you been afraid of your partner or ex-partner?No01/10/2023Within the last year, have you been humiliated or emotionally abused in other ways by your partner or ex-partner?No01/10/2023 Within the last year, have you been kicked, hit, slapped, or otherwise physically hurt by your partner or ex-partner?No01/10/2023Within the last year, have you been raped or forced to have any kind of sexual activity by your part ner or ex-partner?No01/10/2023hysically or Sexually AbusedNot on file01/10/2023 CommentsNoSex and Gender InformationValueDate RecordedSex Assigned at ZtkuhRbttqg00/22/2025 9:10 PM EDTLegal SnfQvnfws75/30/2022 1:25 PM EDTGender DxyyhxheTakfqx05/22/2025 9:10 PM EDTSexual OrientationHeterosexual or Straight 09/26/2024 9:10 PM EDTdocumented as of this encounter Plan of Treatment Not on file documented as of this encounter Procedures Procedure NamePriorityDate/TimeAssociated DiagnosisCommentsCARDIAC DEVICE CHECK CHECK - CAFZGRAndpxsw25/23/2025 12:14 PM EDT Awareness of heartbeats documented in this encounter Results * CARDIAC DEVICE CHECK - REMOTE - LOOP RECORDER (ILR) (11/27/2024 12:14 PM EDT) Specimen (Source)Anatomical Location / LateralityCollection Method / Volume Collection TimeReceived Time Narrative Authorizing ProviderResult TypeResult StatusPaul Rubén MDCV IMPLANTABLE CARDIAC DEVICE PROCEDURESFinal ResultPerforming OrganizationAddressCity/State/ZIP Code Phone Number [facility] documented in this encounter Visit Diagnoses Diagnosis Awareness of heartbeats documented in this encounter Care Teams Team MemberRelationshipSpecialtyStart DateEnd Date Naderer, Cas, MD [address] [place] [address] PCP - General02/17/22documented as of this encounter
--- OUTSIDE RECORDS SUMMARY | 2024-12-01 09:40 | XMS_ITS | Encounter Summary ---
Author Organization [facility] Address [address] [place] [address] Care Team Providers Care Deputy Sheriff K9 Handler Name Role Phone Cas Galicia MD Primary Care Provider [phone] Reason for Visit * ReasonCommentsWell Women Visit Encounter Details DateTypeDepartmentCare Team (Latest Contact Info)Brqzdpdpcla28/27/2025 10:40 AM EDTOffice Visit [facility] [address] [place] [address] Rubens Tim, [address] [place] [address] Postmenopausal HRT (hormone replacement therapy) (Primary Dx); Well woman exam with routine gynecological exam; Encounter for screening mammogram for malignant neoplasm of breast; Hormone disorder Social History Tobacco UseTypesPacks/DayYears UsedDateSmoking Tobacco: NeverSmokeless Tobacco: NeverAlcohol UseStandard Drinks/WeekCommentsNever0 (1 standard drink = 0.6 oz pure alcohol)B1300 Health LiteracyAnswerDate RecordedHow often do you need to have someone help you when you read instructions, pamphlets, or other written material from your doctor or pharmacy?Never08/08/2024Humiliation, Afraid, Rape, and Kick questionnaireAnswerDate RecordedWithin the last year, have you been afraid of your partner or ex-partner?No08/08/2024Within the last year, have you been humiliated or emotionally abused in other ways by your partner or ex-partner?Patient doiyxpin24/04/2025Within the last year, have you been kicked, hit, slapped, or otherwise physically hurt by your partner or ex-partner?No 08/08/2024Within the last year, have you been raped or forced to have any kind of sexual activity by your partner or ex-partner?No08/08/2024Social Connection and Isolation PanelAnswerDate RecordedIn a typical week, how many times do you talk on the phone with family, friends, or neighbors?More than three times a week08/08/2024How often do you get together with friends or relatives?Patient pufpvjpt45/04/2025How often do you attend jainism or episcopal services?Patient jpbqadxo65/04/2025Do you belong to any clubs or organizations such as jainism groups, unions, [email or web address] or athletic groups, or school groups?No08/08/2024How often do you attend meetings of the clubs or organizations you belong to?Patient psnfdliz55/04/2025re you , , , , never , or living with a partner?Yvrgwyy2808/08/2024UDIT-CAnswerDate RecordedQ1: How often do you have a drink containing alcohol?Never08/08/2024Q2: How many drinks containing alcohol do you have on a typical day when you are drinking?Patient does not drink08/08/2024Q3: How often do you have six or more drinks on one occasion?Never08/08/2024Overall Financial Resource Strain (CARDIA)AnswerDate RecordedHow hard is it for you to pay for the very basics like food, housing, medical care, and heating?Somewhat hard08/08/2024[facility] [place] of Occupational Health - Occupational Stress QuestionnaireAnswerDate RecordedDo you feel stress - tense, restless, nervous, or anxious, or unable to sleep at night because yourmind is troubled all the time - these days?Very much08/08/2024 Exercise Vital SignAnswerDate RecordedOn average, how many days per week do you engage in moderate to strenuous exercise (like a brisk walk)?6 days08/08/2024On average, how many minutes do you engage in exercise at this level?60 min 08/08/2024Hunger Vital SignAnswerDate RecordedWithin the past 12 months, you worried that your food would run out before you got the money to buymore. Sometimes true08/08/2024Within the past 12 months, the food you bought just didn't last and you didn't have money to get more.Never true08/08/2024PRAPARE - TransportationAnswerDate RecordedIn the past 12 months, has lack of transportation kept you from medical appointments or from getting medications?No 08/08/2024In the past 12 months, has lack of transportation kept you from meetings, work, or from getting things needed for daily living?No08/08/2024 Housing Stability Vital SignAnswerDate RecordedIn the last 12 months, was there a time when you were not able to pay the mortgage or rent on time?Patient tbobnqlq18/03/2024In the last 12 months, how many places have you lived?1 04/08/2023In the last 12 months, was there a time when you did not have a steady place to sleep [facility] ([facility])?Patient suppwcri10/03/2024 Housing Stability Vital SignAnswerDate RecordedIn the last 12 months, was there a time when you were not able to pay the mortgage or rent on time?No08/08/2024In the past 12 months, how many times have you moved where you were living?0 08/08/2024t any time in the past 12 months, were you homeless or living in a [facility] (including now)?No08/08/2024CommentsNoSex and Gender Information ValueDate RecordedSex Assigned at BirthNot on fileLegal HazWjdpdj88/15/2023 6:40 PM EDTGender IdentityNot on fileSexual OrientationNot on filedocumented as of this encounter Last Filed Vital Signs Vital SignReadingTime TakenCommentsBlood Jyruogne996/8610 11:10 AM EDT Pulse--Temperature--Respiratory Rate--Oxygen Saturation--Inhaled Oxygen Concentration--Wcpsod857 kg (228 lb 8 oz)12/01/2024 11:10 AM EDTHeight--Body Mass Index39.2208 3:50 PM EDTdocumented in this encounter Progress Notes * Priscila Gonzalez NP - 12/01/2024 10:40 AM EDT Reason for Appointment: Patient ID: Vijaya Del Angel is a 38 y.o. female who presents for Well Women Visit Patient presents today for Annual Exam. MEDICATIONS Current Outpatient Medications Medication Instructions baclofen (LIORESAL) 20 mg, Oral, 3 times daily cholecalciferol (VITAMIN D-3) 125 mcg, Oral, Daily cyanocobalamin (VITAMIN B-12) 1,000 mcg, Daily Cymbalta [address] capsule DHEA 5 mg, Oral, Daily EPINEPHrine (EPIPEN 2-ERMA IJ) Inject as directed EPINEPHrine (Epipen) 0.3 MG/0.3ML injection syringe famotidine (Pepcid) 20 MG tablet Take by mouth fluticasone (Flonase Sensimist) 27.5 MCG/SPRAY nasal spray 2 sprays, Daily RT fremanezumab (Ajovy) 225 MG/1.5ML auto-injector No dose, route, or frequency recorded. furosemide (LASIX) 20 mg, Oral, Daily PRN hydrocortisone 2.5 % cream Topical, 2 times daily PRN, Apply thin layer to affected areas bid prn for flares lamoTRIgine (LaMICtal) 150 MG tablet Take by mouth levalbuterol (XOPENEX CONCENTRATE) 1.25 mg, Nebulization, Every 4 hours PRN levalbuterol (Xopenex HFA) 45 MCG/ACT inhaler 2 puffs, Inhalation, Every 4 hours PRN liothyronine (CYTOMEL) 5 mcg magnesium (as gluconate) (MAGONATE) 27 mg, 2 times daily montelukast (Singulair) 10 MG tablet Take by mouth pyridostigmine (MESTINON) 180 mg, 2 times daily sAXagliptin (ONGLYZA) 5 mg, Oral, Daily sertraline (ZOLOFT) 100 mg, Daily Synthroid 100 MCG tablet triamcinolone (Kenalog) 0.1 % cream Apply to affected areas, up to twice a day when flared, do not use one the face, groin, or underarms, 30 day supply Ubrogepant (Ubrelvy) 100 MG tablet Take by mouth zonisamide (Zonegran) 100 MG capsule TAKE 2 CAPSULES (200 MG TOTAL) BY MOUTH IN THE MORNING. ALLERGIES Allergies Allergen Reactions Erythromycin Shortness of [...] saw Dr. Jorge London Penicillin G Benzathine Other Reaction(s): Unknown Skin Oils [Dimethicone] Sulfamethoxazole Other Reaction(s): Unknown Topiramate Wellbutrin [Bupropion] Aspirin Angioedema, Rash and Unknown Other reaction(s): Angioedema, Unknown, Unknown Latex Itching, Rash, Swelling and Unknown Skin cracks and bleeds Other reaction(s): Unknown Skin cracks and bleeds Skin cracks and bleeds Other Reaction(s): Unknown Levofloxacin Rash Penicillins Itching and Rash Other reaction(s): Unknown, Unknown, Unknown Povidone-Iodine Rash Rofecoxib Rash and Unknown Other reaction(s): Unknown Shellfish Protein-Containing Drug Products Hives and Rash PROBLEMS Active Ambulatory Problems Diagnosis Date Noted PTSD (post-traumatic stress disorder) 12/24/2020 Allergic reaction to contrast dye 07/25/2021 Chronic rhinosinusitis 12/22/2015 Anxiety 03/02/2021 Arachnoid cyst of pituitary gland 04/07/2015 Aspirin allergy 02/10/2021 Autonomic dysfunction 02/10/2021 Bleeding disorder 02/23/2014 Symptomatic bradycardia 12/24/2020 Cervicalgia 03/02/2021 MDD (major depressive disorder), recurrent episode, mild 12/24/2020 Type 2 diabetes mellitus with hyperglycemia, without long-term current use of insulin ([facility]) 12/24/2020 Diffuse pain 08/23/2021 Adverse food reaction 07/25/2021 Dyspareunia in female 01/12/2023 Gastroesophageal reflux disease 12/22/2015 Gross hematuria 01/12/2023 Hearing loss 12/22/2015 History of hysterectomy 02/10/2021 Hyperlipidemia 12/22/2015 Irritable bowel syndrome 12/22/2015 Memory difficulties 03/02/2021 Migraine without aura and without status migrainosus, not intractable 12/24/2020 Moderate persistent asthma without complication ([facility]) 07/25/2021 KATELIN (obstructive sleep apnea) 12/24/2020 Ovarian cyst 01/12/2023 Palpitations 10/20/2021 Decreased activity tolerance 08/23/2021 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 03/02/2021 Primary hypothyroidism 12/22/2015 Qualitative platelet disorder (HCC) 04/03/2022 Right inguinal hernia 01/12/2023 Screening for endocrine disorder 06/14/2021 Subjective muscle weakness 05/24/2021 Transient diplopia 05/24/2021 Trapezius muscle spasm 03/02/2021 Urethral stricture 01/12/2023 Vitamin D deficiency 01/12/2023 Word finding difficulty 03/02/2021 Edema of both legs 04/09/2023 Allergic reaction 09/26/2023 Class 2 severe obesity due to excess calories with serious comorbidity and body mass index (BMI) of37.0 to 37.9 in adult 02/11/2024 Hormone imbalance 04/30/2024 PCOS (polycystic ovarian syndrome) 04/30/2024 Annual physical exam 08/11/2024 Right wrist pain 09/25/2024 Right forearm pain 09/25/2024 Resolved Ambulatory Problems Diagnosis Date Noted Abdominal pain, acute, right lower quadrant 12/30/2011 Abnormal urine sediment 01/12/2023 Acute stress disorder 12/22/2015 Adenovirus infection 01/10/2022 Exacerbation of asthma (HCC) 01/08/2022 Asthma (HCC) 12/22/2015 Blood pressure instability 05/24/2021 Chest pain 12/24/2020 Drug reaction 07/25/2021 Generalized headache 12/22/2015 Hypersomnia with sleep apnea 03/02/2021 Orthostatic intolerance 08/23/2021 Orthostatic lightheadedness 05/24/2021 RSV (respiratory syncytial virus infection) 01/10/2022 Stress incontinence 01/12/2023 Syncope and collapse 05/24/2022 Acute non-recurrent pansinusitis 04/09/2023 COVID-19 02/27/2024 Past Medical History: Diagnosis Date Abdominal pain, generalized Abnormality of plasma protein, unspecified Anxiety and depression Arachnoid cyst Celiac disease (HCC) Chronic sinusitis Deaf, right Depression Edema, peripheral Hernia, abdominal Herpes zoster without complication History of cardiac monitoring History of thyroid nodule Hot flashes due to surgical menopause Hypothyroid Insomnia, persistent Medication reaction Metabolic syndrome Mild persistent asthma without complication (HCC) Myoclonic jerking, massive Paresthesia Post-COVID syndrome POTS (postural orthostatic tachycardia syndrome) Seasonal allergic rhinitis due to pollen Urinary hesitancy HISTORY PAST MEDICAL HISTORY SOCIAL HISTORY Past Medical History: Diagnosis Date Abdominal pain, generalized Abnormality of plasma protein, unspecified deficiency (easy bleeder) Anxiety and depression Arachnoid cyst in brain (2016) Asthma (HCC) Celiac disease (HCC) Chronic sinusitis Deaf, right Depression Dyspareunia in female Edema, peripheral Gastroesophageal reflux disease Hernia, abdominal Herpes zoster without complication History of cardiac monitoring Pt currently has cardiac heart monitor 06/27/2022 History of hysterectomy History of thyroid nodule Hormone imbalance Hot flashes due to surgical menopause Hypothyroid Insomnia, persistent Medication reaction Metabolic syndrome Mild persistent asthma without complication (HCC) Myoclonic jerking, massive Ovarian cyst Paresthesia Post-COVID syndrome POTS (postural orthostatic tachycardia syndrome) Right inguinal hernia Seasonal allergic rhinitis due to pollen Type 2 diabetes mellitus with hyperglycemia, without long-term current use of insulin (HCC) Urinary hesitancy Vitamin D deficiency Social History [...] CONTRAST OTHER SURGICAL HISTORY 2013 uterine ablation [place],CHOLECYSTECTOMY 2009 [place] LAPAROSCOPY W/LYSIS OF ADHESIONS 2010 SALPINGECTOMY Bilateral SEPTOPLASTY SINUS SURGERY 2010 TOTAL ABDOMINAL HYSTERECTOMY TUBAL LIGATION TYMPANOSTOMY Bilateral REVIEW OF SYSTEMS Review of Systems: Review of Systems Constitutional: Negative. HENT: Negative. Eyes: Negative. Respiratory: Negative. Cardiovascular: Negative. Gastrointestinal: Negative. Genitourinary: Negative. Musculoskeletal: Negative. Skin: Negative. Neurological: Negative. All other systems reviewed and are negative. Hematological: Negative. Endocrine: Negative. Allergic/Immunologic: Negative. OBJECTIVE Objective: Physical Exam Constitutional: Appearance: Normal appearance. She is well-developed. Genitourinary: Vulva normal. Breasts: Breasts are soft. Right: Normal. Left: Normal. Cardiovascular: Rate and Rhythm: Normal rate and regular rhythm. Pulmonary: Effort: Pulmonary effort is normal. Breath sounds: Normal breath sounds. Abdominal: General: Bowel sounds are normal. There [...] nursing note reviewed. Exam conducted with a affiliate marketing coordinator present. Vitals: Estimated body mass index is 39.22 kg/m?? as calculated from the following: Height as of 09/25/24: 5' 4 . Weight as of this encounter: 228 lb 8 oz. BP: 130/86 No LMP recorded. Patient has had a hysterectomy. Assessment/Plan ICD-10-CM 1. Postmenopausal HRT (hormone replacement therapy) Z79.890 DHEA 10 MG capsule DHEA DHEA 2. Well woman exam with routine gynecological exam Z01.419 THIN PREP TIS PAP AND HR HPV DNA 3. Encounter for screening mammogram for malignant neoplasm of breast Z12.31 Bilateral screening mammogram Bilateral screening mammogram 4. Hormone disorder E34.9 Estradiol DHEA-sulfate Progesterone TESTOSTERONE, FREE Testosterone, free, total DHEA DHEA Annual Exam: Patient presents today for an annual exam. Patient states she is doing well and has no complaints. Pap was obtained without difficulty. Orders Placed This Encounter Procedures Bilateral screening mammogram Estradiol DHEA-sulfate Progesterone TESTOSTERONE, FREE Testosterone, free, total DHEA Follow Up: Patient is to return in one year for annual unless needed otherwise. Documented by Priscila Gonzalez NP on behalf of: Rubens Tim DO documented in this encounter Plan of Treatment DateTypeDepartmentCare Team (Latest Contact Info)Fogcrpczvtl47/03/2026 8:20 AM EDTOffice Visit [facility] [address] [place] [address] Jodi Holden, PA [address] [place], [place] [id number] 12/07/2025 2:00 PM ESTProcedure Visit [facility] [address] [place] [address] Rubens Tim DO [address] [place], [place] [id number] NameTypePriorityAssociated DiagnosesOrder ScheduleBilateral screening mammogram ImagingRoutine Encounter for screening mammogram for malignant neoplasm of breast Expected: 12/01/2024 (Approximate), Expires: 01/31/2026THIN PREP TIS PAP AND HR HPV DNAPathology and CytologyRoutine Well woman exam with routine gynecological exam Ordered: 12/01/2024EstradiolLabRoutine Hormone disorder Ordered: 12/01/2024DHEA-sulfateLabRoutine Hormone disorder Ordered: 12/01/2024ProgesteroneLabRoutine Hormone disorder Ordered: 12/01/2024TESTOSTERONE, FREELabRoutine Hormone disorder Ordered: 12/01/2024Testosterone, free, totalLabRoutine Hormone disorder Ordered: 12/01/2024DHEALabRoutine Postmenopausal HRT (hormone replacement therapy) Hormone disorder Expected: 12/01/2024 (Approximate), Expires: 12/01/2025documented as of this encounter Visit Diagnoses Diagnosis Postmenopausal HRT (hormone replacement therapy)- Primary Need for prophylactic hormone replacement therapy (postmenopausal) Well woman exam with routine gynecological exam Routine gynecological examination Encounter for screening mammogram for malignant neoplasm of breast Hormone disorder Unspecified endocrine disorder documented in this encounter Care Teams Team MemberRelationshipSpecialtyStart DateEnd Date Csa Galicia MD [address] [place] [address] PCP - GeneralFamily Medicine04/09/23documented as of this encounter
--- OUTSIDE RECORDS SUMMARY | 2024-12-10 09:32 | XMS_ITS | Encounter Summary ---
Author Organization [facility] Address [address] [place] [address] Care Team Providers Care Etiquette Teacher Name Role Phone Cas Galicia MD Primary Care Provider [phone] Cas Galicia MD Unavailable Cas Galicia MD Unavailable Encounter Details DateTypeDepartmentCare Team (Latest Contact Info)Jnlluooamcr86/25/2024Clinisync Result Encounter [facility] External Department Unsolicited Provider, Generic External Data Social History Tobacco UseTypesPacks/DayYears UsedDateSmoking Tobacco: NeverSmokeless [...] other ways by your partner or ex-partner?Patient tgkvpfuw96/04/2025Within the last year, have you been kicked, [...] you get together with friends or relatives?Patient wrbjolce90/04/2025How often do you attend hindu or yarsani services?Patient gipqpgkc17/04/2025Do you belong to any clubs or organizations such as hindu groups, unions, fraternal or athletic groups, or school groups?No08/08/2024How often do you attend meetings of the clubs or organizations you belong to?Patient fctcxjas62/04/2025re you , , , , never , or living with a partner?Dnbjcpj8108/08/2024UDIT-CAnswerDate RecordedQ1: How often do you have a [...] food, housing, medical care, and heating?Somewhat hard08/08/2024[place] of Occupational Health - Occupational Stress QuestionnaireAnswerDate [...] pay the mortgage or rent on time?Patient qhybvgwg50/03/2024In the last 12 months, how many places have you lived?1 04/08/2023In the last 12 months, was there a time when you did not have a steady place to sleep or slept in ashelter (including now)?Patient fajdomvq00/03/2024 Housing Stability Vital SignAnswerDate RecordedIn the last 12 months, was there a time when you were not able to pay the mortgage or rent on time?No08/08/2024In the past 12 months, how many times have you moved where you were living?0 08/08/2024t any time in the past 12 months, were you homeless or living in a custodial (including now)?No08/08/2024CommentsUnknownSex and Gender InformationValueDate RecordedSex Assigned at BirthNot on fileLegal SexFemale 04/19/2022 6:40 PM EDTGender IdentityNot on fileSexual OrientationNot on file documented as of this encounter Functional Status * AUDIT-C ScoreAnswerDate of XcseuamxqaGsxzmq015/04/2025 11:04 AM Arturo Generic * Q1: How often do you have a drink containing alcohol?AnswerDate of Assessment YhwcyeDkzra41/04/2025 11:04 AM Arturo, Generic * Q2: How many drinks containing alcohol do you have on a typical day when you are drinking?AnswerDate of AssessmentAuthorPatient does not drink08/08/2024 11:04 AM Arturo, Generic * Q3: How often do you have six or more drinks on one occasion?AnswerDate of JrwitkdmbsGmgpidHpvgc84/04/2025 11:04 AM Isabelle Morris documented as of this encounter Plan of Treatment DateTypeDepartmentCare Team (Latest Contact Info)Juhidqsndbl28/04/2025 8:20 AM EDTOffice Visit [facility] [address] [place] [address] Jodi Holden, [place] [address] [place] [address] 12/07/2025 2:00 PM ESTProcedure Visit [facility] [place] [facility] [address] [facility] [place] [address] Rodolfo Tim, DO [address] [facility] [place] [address] documented as of this encounter Procedures Procedure NamePriorityDate/TimeAssociated DiagnosisCommentsUS PELVIS W/ NRISMFDWREAQ58/25/2024 10:22 AM EDT documented in this encounter Results * US PELVIS W/ TRANSVAGINAL (08/30/2023 10:22 AM EDT)Anatomical RegionLaterality ModalityOtherSpecimen (Source)Anatomical Location / LateralityCollection Method / VolumeCollection TimeReceived Time08/30/2023 10:22 AM EDT Narrative 08/30/2023 10:25 AM EDT [facility] ?[address] ? [place] [address] ? Ultrasound Report ? Signed ? Patient: VIJAYA TRAN ?MR#: [id number] ?? : 1985 ?Acct:[id number] ?? Age/Sex: 37 / F ?ADM Date: 08/30/23 ?? Loc: US ? Attending Dr: Rodolfo Tim D.O. ? Ordering Physician: Rodolfo Tim D.O. ?? Date of Service: 08/30/23 ?? Procedure(s): US pelvis w/ transvaginal ?? Accession Number(s): [id number] ? cc: Rodolfo Tim D.O.; Cas Galicia M.D. ? [facility] ? [address] ? [place] [address] ? Patient Name: ?? VIJAYA TRAN ? MRN: [employer]:[id number] ? date: 1985 ?Sex: F ?? Assigned Patient Location: US ?? Current Patient Location: US ?? Accession/Order Number: [id number] ?? Exam Date: 08/30/2023 ??08:55 ?Report Date: 08/30/2023 ??10:22 ? At the request of: ?? RODOLFO ??GEORGE ? Procedure: ??US pelvis w/ transvaginal ? EXAMINATION: US pelvis w/ transvaginal ? HISTORY: Hormone imbalance E34.9 ? COMPARISON: No relevant comparison available. ? FINDINGS: ? Transabdominal and transvaginal images ? The uterus is surgically absent ? The right ovary measures 3.4 x 2.6 x 1.7 cm. Normal color and Doppler flow. ? The left ovary measures 3.6 x 2.1 x 2.2 cm. Normal color and Doppler flow. ?? Normal follicles ? US/US pelvis w/ transvaginal ?? IMPRESSION: ? Unremarkable exam ? Electronically authenticated by: BELÉN ??RAYMOND ?? Date: 08/30/2023 ??10:22 ? Dictated By: ?Belén Andrade M.D. ? Signed By: ?08/30/23 1025 ? DD/ 1022 ? TD/TT: ? Global Security Architect: Procedure Note Radiology, Radiologist, MD - 08/30/2023 [place] [address] Ultrasound Report Signed Patient: VIJAYA TRAN SMR#: [id number] : 1985Acct:[id number] Age/Sex: 37 / FADM Date: 08/30/23 Loc: US Attending Dr: Rodolfo Tim D.O. Ordering Physician: Rodolfo Tim D.O. Date of Service: 08/30/23 Procedure(s): US pelvis w/ transvaginal Accession Number(s): [id number] cc: Rodolfo Tim D.O.; Cas Galicia M.D. The [address] [address] Patient Name: VIJAYA TRAN MRN: [id number] date: 1985 Sex: F Assigned Patient Location: US Current Patient Location: [place] Accession/Order Number: [id number] Exam Date: 08/30/2023 08:55 Report Date: 08/30/2023 [...] M.D. Signed By:08/30/23 1025 DD/ 1022 TD/TT: Global Security Architect: Authorizing ProviderResult TypeResult StatusGeneric External Data Provider [facility]IS[facility]NC IMAGINGFinal Result documented in this encounter Visit Diagnoses Not on filedocumented in this encounter Care Teams Team MemberRelationshipSpecialtyStart DateEnd Date Cas Galicia MD [address] [place] [address] PCP - Generalmi Medicine04/09/23 Cas Galicia MD [address] [place] [address] PCP - [place] Cas Galicia MD [address] [place] [address] PCP - [place] Nochzhzkhm03/1/244documented as of this encounter
--- NOTE | 2024-12-10 09:33 | MM_ITS ---
Patient Name: LEANA TRAN MR#: [id number] : 1985 Exam Date: 12/10/2024 Ordering Doctor: DR RODOLFO VAZQUEZ . RADIOLOGY REPORT PROCEDURE: MM TOMOSYNTHESIS SCREENING BI COMPARISON: MM TOMOSYNTHESIS DIAGNOSTIC BI, 08/31/2023. MG MAMM DIAGNOSTIC 3D LARS CAD, 10/19/2021. INDICATIONS: Screening Calculator Name NCI Breast Cancer Risk Assessment Tool 5 Year Breast Cancer Risk 0.50% Lifetime Breast Cancer Risk 9.90% Personal Breast Cancer No Personal Ovarian Cancer No Treatments None Family Cancers Mother with liver cancer at age 52; Grandmother-paternal with lung cancer at age 46; Grandfather-paternal with colon cancer at age 68; Mother with cervical cancer at age ~50. LOCATION: [facility] BREAST COMPOSITION: There are scattered areas of fibroglandular density. FINDINGS: DIAGNOSTIC CATEGORY 1--NEGATIVE. RIGHT BREAST: No significant suspicious finding. LEFT BREAST: No significant suspicious finding. RECOMMENDATIONS: ROUTINE MAMMOGRAM AND CLINICAL EVALUATION IN 12 MONTHS. Dictated by: Hayden Aragon MD on 12/10/2024 at 11:57 Approved by: Hayden Aragon MD on 12/10/2024 at 12:31
--- OUTSIDE RECORDS SUMMARY | 2024-12-10 09:33 | XMS_ITS | Clinical Summary ---
Author Organization [facility] Address [address] [place] [address] Care Team Providers Care Automobile Appraiser Name Role Phone Cas Galicia MD Primary Care Provider Allergies Active AllergyReactionsCriticalityNoted OtojAffhzugcCtfsrpob74/19/2023Aspirin WuxbBzd5809/04/2011 Other reaction(s): Angioedema, Unknown, Unknown Qghysizap79/17/2023 Other reaction(s): Other (See Comments) Reports like seizure activity and the fall asleep Reports like seizure activity and the fall asleep CefaclorAnaphylaxis,Shortness of breath,NeoqmmqsErzr34/30/2012 Other reaction(s): Unknown, Unknown Other reaction(s): Unknown Other reaction(s): Unknown Cefuroxime AxetilRash,Shortness of fucjqzTeop62/30/2012ClindamycinRash,Shortness of breath,YjrvqcciKait42/19/2015 Other reaction(s): Unknown, Unknown Mmsyelnlrag48/02/2023Drospirenone-Ethinyl Wxdpzabmd38/30/2012 Other reaction(s): Other: See Comments Makers her asthma flair up Other reaction(s): Other: See Comments Skin discoloration of feet with OCPs Skin discoloration of feet with OCPs Makers her asthma flair up Lkhgyubxiuus95/02/2075BfrlzcvxkoIvgxgvcxtunOrvk93/18/2021Fish Containing GnqwnhjpIzeapAkenzm29/20/4901ThfgwgfmtgmrQmfcjiqy33/16/2015Gloves, Latex With Aloe Vera08/18/2021 Other reaction(s): Unknown VfpfbidscXzwwQtdcoe30/30/2012 Other reaction(s): Unknown, Unknown Due to clotting disorder-Aleve Due to clotting disorder-Aleve YrtanxvXhhmncafpxaQvtl10/30/2012Iodinated Contrast MediaAnaphylaxisHigh 02/23/2014 Other reaction(s): Unknown Does not tolerate with pre-medication Tolerated with pre-medication on 09/22/21 Other reaction(s): Unknown Does not tolerate with pre-medication Bcclta2905/24/2022 Other reaction(s): Unknown Latex, Natural RubberItching,Rash,NzuhqajbBrf60/30/2012 Other reaction(s): Unknown Skin cracks and bleeds Skin cracks and bleeds Lavender (Lavandula Angustifolia)RofekljizrsCmvg77/09/2021evofloxacinRashLow 11/11/2020Macrolide AntibioticsShortness of breath,KwbnhkhtMqzh38/30/2012 Other reaction(s): Allergy, Unknown, Unknown KojmvmpDmcmh25/23/6608Dpasiowz87/02/2021 Other reaction(s): Angioedema Norethindrone Ac-Eth Hnqujugmx38/30/2012 Chest hurt and legs turned black -- saw Dr. Jorge London Chest hurt and legs turned black -- saw Dr. Jorge London PenicillinsItching,KjtxSgt9609/04/2011 Other reaction(s): Unknown, Unknown, Unknown Povidone-LhixmfKvtkBac67/19/7707HpvyugccjMkkqKjm59/30/2012 Other reaction(s): Unknown Shellfish XzldnyaIfonxIfdmaw81/20/2022ulfa (Sulfonamide Antibiotics)Shortness of breath,FlugqkayRzwh47/14/2016 Other reaction(s): Unknown Other reaction(s): Unknown Sulfamethoxazole-NwjpoidqyxgdMqqt89/19/2014 Other reaction(s): Other Cant breathe ValacyclovirAnaphylaxis,Shortness of tnpbmnBcza95/31/2022 Medications MedicationSigDispense QuantityRefillsLast FilledStart DateEnd DateStatus albuterol [...] mg disintegrating tablet ondansetron 4 mg disintegrating rjkizg1801/18/2022ctive sertraline (Zoloft) 50 mg tablet Take 100 [...] creamActive Active Problems ProblemNoted DateDiagnosed DateAbnormal urine Jkraqajrlplzfo80yspareunia in kjkyls03ross ofbdjdojn93idney stoneOvarian cyst Right inguinal mtxpae69Stress incontinence Vitamin D jfbcdajcwu78Urethral stricture Implantable loop recorder oikubvj5107/17/2022Syncope and uzzapwub70/19/2023 Overview (05/24/2022): Added automatically from request for surgery [id number] Qualitative platelet pkbcnreh12/27/2023denovirus abbmwvrjn54 RSV (respiratory syncytial virus infection)alpitations Orthostatic uevoncffibw41/19/2022iffuse pain08/23/2021 01/01/2023Moderate persistent asthma without strdpazhumkv23/20/2022llergic reaction to contrast dyedverse food pnerkias07/20/2022 01/01/2023lood pressure tlxlvehkiga85/19/2022hysical nbxcobcvoupcwn10/19/2022 01/01/2023Orthostatic yasssywvmynorcc29Transient diplopia Subjective muscle zogqzrwx46nxiety 03/02/2021Hypersomnia with sleep apnea03/02/2021hronic azhh-KUHNR-33 syndrome 8962Dycnhkwlurg78rain fogWord finding ptkrmznqbj35Trapezius muscle spasm Autonomic lyepcuwdjlg00/06/2022History of /06/2022spirin allergy TSD (post-traumatic stress disorder)12/24/2020iabetes ealrrjsa11/19/2021Migraine without aura and without status migrainosus, not ppbwpswqoyx62/19/2021OSA (obstructive sleep apnea)1Bradycardia hest painllergic /16/2016 Wgxfwa2412/22/2015Gastroesophageal reflux odgpzmx9712/22/2015Hearing loss12/22/2015 Kishtjvguiqduk40/16/2016Irritable bowel hwuzpqqr06/16/2016Arachnoid cyst eneralized lzgpfwze71Encounter for long- term (current) use of tjcvvrq903Primary hypothyroidism rachnoid cyst of pituitary gland04/07/2015Bleeding disorder 02/23/2014bdominal pain, acute, right lower aisqunhg82 Encounters DateTypeDepartmentCare HmywBvpcuuvhpag45/22/2025 8:30 AM EDTAncillary Procedure [facility] [address] [place] [phone] Awareness of wxsxrlcezi14/21/2025Orders Only [facility] [address] [place] [address] Halima Morris MD 10/27/2024 11:20 AM EDTAncillary Procedure [facility] [address] [place] [address] Awareness of zwbwqummag02/21/2025Orders Only [facility] [address] [place] [phone] Halima Morris MD 09/25/2024 11:10 AM EDTAncillary Procedure [facility] [address] [place] [address] Awareness of erggkhanpl56/20/2025Orders Only [facility] [address] [place] [phone] Halima Morris MD from Last 3 Months Family History Medical HistoryRelationNameCommentsHeart attackFatherTim(biological father)Heart diseaseFatherTim(biological father)57Heart failureFatherTim(biological father) Heart murmurFatherTim(biological father)HyperlipidemiaFatherTim(biological father)CancerMaternal GrandfatherJamesAortic aneurysmMaternal PttwnhmlvuoXhv83 CancerMaternal GrandmotherSueAsthmaMotherLeilaniCancerMotherLeilaniCoronary artery diseaseMotherLeilaniDiabetesMotherLeilaniDiabetes type IIMotherLeilani Heart ubuoujOuqnizRqtvsug89Vdijh diseaseMotherLeilaniHeart failureMotherLeilani HyperlipidemiaMotherLeilaniHypertensionMotherLeilaniKidney diseaseMotherLeilani Skin cancerMotherLeilaniStrokeMotherLeilanipituitary tumorMotherLeilani [...] part ner or ex-partner?No01/10/2023HQ-2AnswerDate RecordedPatient Health Questionnaire-2 Vcahs717Exercise Vital SignAnswerDate RecordedOn average, how many days [...] CommentsNoSex and Gender InformationValueDate RecordedSex Assigned at WyiwkShehqi17/22/2025 9:10 PM EDTLegal BjuHdiwgx29/30/2022 1:25 PM EDTGender YzacfmezEhvthe35/22/2025 9:10 PM EDTSexual OrientationHeterosexual or Straight 09/26/2024 9:10 PM EDT Last Filed Vital Signs Vital SignReadingTime TakenCommentsBlood Qfnwkdtz349/6001/10/2023 12:23 PM EST Qqvmk040501/10/2023 12:23 PM ESTTemperature--Respiratory Szxp575006/27/2022 9:43 AM EDTOxygen Iloqaqvpfy01%01/01/2023 2:51 PM ESTInhaled Oxygen Concentration-- Lhlfdk066 kg (227 lb)08/12/2024 2:49 PM HXNTjscse035.6 cm (5' 4 )08/12/2024 2:49 PM EDTBody Mass Index38.9608/12/2024 2:49 PM EDT Plan of Treatment Health MaintenanceDue DateLast DoneCommentsDiabetes: Retinopathy Screening 12/20/1993Varicella Vaccines (1 of 2 - 13+ 2-dose series)12/20/1996Diabetes: Urine Protein Enoksazlp74/15/2003Hepatitis B Vaccines (1 of 3 - 19+ 3-dose series)12/20/2002Pneumococcal Vaccine: Pediatrics (0 to 5 Years) and At-Risk Patients (6 to 64 Years) (1 of 2 - PCV)12/20/2002Adult Znfusie6512/20/2005HPV Vaccines (1 - 3-dose SCDM series)12/20/2010HPV/Zrazxs8512/20/2013Cervical Cancer Jtihmdgys99/10/2017Pap Smear03/17/Diabetes: Hemoglobin A1C /9624Rgpmotsla52/15/2024OVID-19 Vaccine (1 - season) 2024Influenza Vaccine (#1), 11/06/2019, 10/27/2019 Depression Nraludxmf14Zoster Vaccines (1 of 2)12/20/2033HIB VaccinesAged OutNo longer [...] DateModel / Serial / LotMonitor,Cardiac,Biomonitor Iii - [id number] - [id number] Implanted:Qty: 1 on 06/27/2022 by Ste[facility]on [id number] / [id number] / Procedures Procedure NamePriorityDate/TimeAssociated DiagnosisCommentsCARDIAC DEVICE CHECK CHECK - UAJXWBKtfvurs53/23/2025 12:14 PM EDT Awareness of heartbeats CARDIAC DEVICE CHECK - REMOTE - LOOP RECORDER (ILR)Vidjagk4911/25/2024 12:00 AM EDTCARDIAC DEVICE CHECK CHECK - TBTFHQWsfpuuv12/25/2025 10:15 AM EDT Awareness of heartbeats CARDIAC DEVICE CHECK - REMOTE - LOOP RECORDER (ILR)Viyxdvz8710/26/2024 12:00 AM EDTCARDIAC DEVICE CHECK CHECK - EFISOVGfmbite06/22/2025 10:33 AM EDT Awareness of heartbeats CARDIAC DEVICE CHECK - REMOTE - LOOP RECORDER (ILR)Ccwwetv6209/24/2024 12:00 AM EDTfrom Last 3 Months Results [...] Narrative Authorizing ProviderResult TypeResult StatusSabaylee Jaky Morris [facility] IMPLANTABLE CARDIAC DEVICE PROCEDURESFinal Result from Last 3 Months Insurance * Guarantor: Vijaya Tran TypeRelation to PatientDate of BirthPhone Billing AddressPersonal/NmeroyJevy69/15/1986 [address] [address] Care Teams Team MemberRelationshipSpecialtyStart DateEnd Date Cas Galicia MD [address] [place] [address] PCP - General02/17/22
--- OUTSIDE RECORDS SUMMARY | 2024-12-10 09:33 | XMS_ITS | Encounter Summary ---
Author Organization [facility] Address [address] [place] [address] Care Team Providers Care Dispatch Associate Name Role Phone Cas Galicia MD Primary Care Provider [phone] Cas Galicia MD Unavailable Encounter Details DateTypeDepartmentCare Team (Latest Contact Info)Ktadbmvruod44/03/2024Clinisync Result Encounter [facility] External [facility] Unsolicited Provider, [...] other ways by your partner or ex-partner?Patient afckxzkl00/04/2025Within the last year, have you been kicked, [...] you get together with friends or relatives?Patient midhtfvw80/04/2025How often do you attend voodoo or protestant services?Patient akuzdilc76/04/2025Do you belong to any clubs or organizations such as voodoo groups, unions, fraternal or athletic groups, or school groups?No08/08/2024How often do you attend meetings of the clubs or organizations you belong to?Patient lfigmzvf43/04/2025re you , , , , never , or living with a partner?Efcrihf7308/08/2024UDIT-CAnswerDate RecordedQ1: How often do you have a [...] like food, housing, medical care, and heating?Somewhat hard08/08/2024[facility] [place] of Occup[facility] Health - Occupational Stress QuestionnaireAnswerDate [...] pay the mortgage or rent on time?Patient pkkysdmt54/03/2024In the last 12 months, how many places have you lived?1 04/08/2023In the last 12 months, was there a time when you did not have a steady place to sleep or slept in ashelter (including now)?Patient kobpahbl96/03/2024 Housing Stability Vital SignAnswerDate RecordedIn the last 12 months, was there a time when you were not able to pay the mortgage or rent on time?No08/08/2024In the past 12 months, how many times have you moved where you were living?0 08/08/2024t any time in the past 12 months, were you homeless or living in a half-way (including now)?No08/08/2024CommentsNoSex and Gender Information ValueDate RecordedSex Assigned at BirthNot on fileLegal AdrTabupr37/15/2023 6:40 PM EDTGender IdentityNot on fileSexual OrientationNot on filedocumented as of this encounter Functional Status * AUDIT-C ScoreAnswerDate of TtoaimoxjhOsdiiv811/04/2025 11:04 AM EDAnna Marie, Generic * Q1: How often do you have a drink containing alcohol?AnswerDate of Assessment LifwmsEswvu42/04/2025 11:04 AM EDMXAWELLychart, Generic * Q2: How many drinks containing alcohol do you have on a typical day when you are drinking?AnswerDate of AssessmentAuthorPatient does not drink08/08/2024 11:04 AM EDAnna Marie, Generic * Q3: How often do you have six or more drinks on one occasion?AnswerDate of FjbybvirybIhxzkhUtlyn28/04/2025 11:04 AM Arturo, Generic documented as of this encounter Plan of Treatment DateTypeDepartmentCare Team (Latest Contact Info)Xsjfkvbllcx11/03/2026 8:20 AM EDTOffice Visit [facility] [address] [place] [phone] Jodi Holden, PA [address] [place] [address] [place] [address] 12/07/2025 2:00 PM ESTProcedure Visit [facility] [address] [place] [phone] Rubens Tim, DO [address] [place] [address] documented as of this encounter Procedures Procedure NamePriorityDate/TimeAssociated DiagnosisCommentsCT ABDOMEN/PELVIS WO CONT10/09/2023 3:39 PM EDT documented in this encounter Results * CT ABDOMEN/PELVIS WO CONT (10/09/2023 3:39 PM EDT)Anatomical Region LateralityModalityRadiographic ImagingSpecimen (Source)Anatomical Location / LateralityCollection Method / VolumeCollection TimeReceived Time10/09/2023 3:39 PM EDT Narrative 10/09/2023 3:[address] [facility] ?[address] ? [place] [address] ? CT Scan Report ? Signed ? Patient: VIJAYA TRAN ?MR#: [id number] ?? : 1985 ?Acct:[id number] ?? Age/Sex: 37 / F ?ADM Date: 10/09/23 ?? Loc: CT ? Attending Dr: Selma Choe STEEL TIER ? Ordering Physician: Selma Choe STEEL TIER ?? Date of Service: 10/09/23 ?? Procedure(s): CT abdomen pelvis wo con ?? Accession Number(s): [id number] ? cc: Cas Galicia M.D. ? [facility] ? [address] ? [place] [address] ? Patient Name: ?? VIJAYA TRAN ? MRN: [id number] ? date: 1985 ?Sex: F ?? Assigned Patient Location: CT ?? Current Patient Location: CT ?? Accession/Order Number: [id number] ?? Exam Date: 10/09/2023 ??14:16 ?Report Date: 10/09/2023 ??15:39 ? At the request of: ?? SELMA ??BROOKLYNN ? Procedure: ??CT abdomen pelvis wo con ? EXAMINATION: CT abdomen pelvis wo con, 10/09/2023 2:16 PM EDT ? HISTORY: Kidney Stone, Gross Hematuria, Ureteral Stricture ? COMPARISON: None. ? TECHNIQUE: CT scan of the abdomen and pelvis was performed without IV ?? contrast. ?? CT dose reduction technique was used, including Automated Exposure Control. ? FINDINGS: ? LOWER CHEST: The visualized lungs are clear. ? LIVER: There is hepatomegaly and diffuse hepatic steatosis. ? GALLBLADDER AND BILIARY SYSTEM: Status post cholecystectomy. No intra or ?? extrahepatic biliary ductal dilatation. ? SPLEEN: Unremarkable. ? PANCREAS: Unremarkable. ? ADRENAL GLANDS: Unremarkable. ? KIDNEYS AND URETERS: No nephrolithiasis or hydronephrosis. No ureteral ?? calculus. ? BLADDER: Under distended. ? GASTROINTESTINAL TRACT: No evidence of bowel obstruction or colitis. Moderate ?? amount of stool in the colon. Status post appendectomy. ? VASCULATURE: The abdominal aorta is normal in caliber. ? RETROPERITONEUM: No lymphadenopathy. ? PERITONEUM/MESENTERY: No abdominal ascites. No free air. ? PELVIS: There is a 4.2 x 3.4 cm right ovarian cyst. No pelvic ascites or ?? lymphadenopathy. ? BODY WALL: Small fat-containing umbilical hernia. ? BONES: No acute abnormality. ? CT/CT abdomen pelvis wo con ?? IMPRESSION: ? 1. Right ovarian cyst measuring 4.2 cm. ? 2. Hepatomegaly and diffuse hepatic steatosis. ? 3. Small fat-containing umbilical hernia. ? Electronically authenticated by: DANO ??NEWATIA ?? Date: 10/09/2023 ??15:39 ? Dictated By: ?Dano Hill M.Siri. ? Signed By: ?10/09/23 1542 ? DD/ 1539 ? TD/TT: ? Lpn Care Manager: Procedure Note Radiology, Radiologist, MD - 10/09/[address] [address] [address] Scan Report Signed Patient: VIJAYA TRAN SMR#: [id number] : 1985Acct:[id number] Age/Sex: 37 / FADM Date: 10/09/23 Loc: CT Attending Dr: Selma Choe NP Ordering Physician: Selma Choe NP Date of Service: 10/09/23 Procedure(s): CT abdomen pelvis wo con Accession Number(s): [id number] cc: Cas Galicia M.D. [address] [address] Patient Name: VIJAYA TRAN MRN: [id number] date: 1985 Sex: F Assigned Patient Location: CT Current Patient Location: CT Accession/Order Number: [id number] Exam Date: 10/09/2023 14:16 Report Date: 10/09/2023 [...] M.D. Signed By:10/09/23 1542 DD/ 1539 TD/TT: Lpn Care Manager: Authorizing ProviderResult TypeResult StatusGeneric External Data ProviderIMG XR PROCEDURESFinal Result documented in this encounter Visit Diagnoses Not on filedocumented in this encounter Care Teams Team MemberRelationshipSpecialtyStart DateEnd Date Cas Galicia MD [address] [place] [address] PCP - GeneralFamily Medicine04/09/23 Cas Galicia MD [address] [place] [address] PCP - Davie Goncalvesdocumented as of this encounter
--- OUTSIDE RECORDS SUMMARY | 2024-12-10 09:33 | XMS_ITS | Encounter Summary ---
Author Organization [facility] Address [address] [place] [address] Care Team Providers Care Fretted Instrument Inspector Name Role Phone Cas Galicia MD Primary Care Provider [phone] Encounter Details DateTypeDepartmentCare Team (Latest Contact Info)Rurcfdaotlg53/27/2025amboo flowsheet [facility] [address] [place] [address] Rubens Tim DO [address] [facility] [address] [place], [facility] Social History Tobacco UseTypesPacks/DayYears UsedDateSmoking Tobacco: NeverSmokeless [...] other ways by your partner or ex-partner?Patient jdacnedx84/04/2025Within the last year, have you been kicked, [...] you get together with friends or relatives?Patient vysfggba74/04/2025How often do you attend gnosticism or jewish services?Patient dbtfjurh57/04/2025Do you belong to any clubs or organizations such as gnosticism groups, unions, [employer] or athletic groups, or school groups?No08/08/2024How often do you attend meetings of the clubs or organizations you belong to?Patient naesovra25/04/2025re you , , , , never , or living with a partner?Wbqbfoj4108/08/2024UDIT-CAnswerDate RecordedQ1: How often do you have a [...] like food, housing, medical care, and heating?Somewhat hard08/08/2024[facility] [place] of Occupational Health - Occupational Stress QuestionnaireAnswerDate [...] pay the mortgage or rent on time?Patient oafsvoai62/03/2024In the last 12 months, how many places have you lived?1 04/08/2023In the last 12 months, was there a time when you did not have a steady place to sleep or slept in ashelter (including now)?Patient yfyvblhc03/03/2024 Housing Stability Vital SignAnswerDate RecordedIn the last [...] ValueDate RecordedSex Assigned at BirthNot on fileLegal AkrRilwpb98/15/2023 6:40 PM EDTGender IdentityNot on fileSexual OrientationNot on filedocumented as of this encounter Plan of Treatment DateTypeDepartmentCare Team (Latest Contact Info)Lmifdrijuvk11/03/2026 8:20 AM EDTOffice Visit [facility] [address] [place] [address] Jodi Holden, PONCE [address] [place] [address] 12/07/2025 2:00 PM ESTProcedure Visit [facility] [address] [place] [address] Rubens Tim DO [address] [facility] [place] [address] documented as of this encounter Visit Diagnoses Not on filedocumented in this encounter Care Teams Team MemberRelationshipSpecialtyStart DateEnd Date Cas Galicia MD [address] [place] [address] PCP - GeneralFamily Medicine04/09/23documented as of this encounter
--- OUTSIDE RECORDS SUMMARY | 2024-12-10 09:33 | XMS_ITS | Encounter Summary ---
Author Organization [facility] Address [address] [place] [address] Care Team Providers Care Coach Mechanic Name Role Phone Cas Galicia MD Primary Care Provider [phone] Cas Galicia MD Unavailable Cas Galicia MD Unavailable Encounter Details DateTypeDepartmentCare Team (Latest Contact Info)Lhzbkltctzs42/26/2024Clinisync Result Encounter [facility] External Department Unsolicited Provider, [...] other ways by your partner or ex-partner?Patient buewvliq86/04/2025Within the last year, have you been kicked, [...] you get together with friends or relatives?Patient rzeirhpa75/04/2025How often do you attend faith or christian services?Patient /04/2025Do you belong to any clubs or organizations such as faith groups, unions, fraternal or athletic groups, or school groups?No08/08/2024How often do you attend meetings of the clubs or organizations you belong to?Patient ffwqrysn69/04/2025re you , , , , never , or living with a partner?Esqpbyc5608/08/2024UDIT-CAnswerDate RecordedQ1: How often do you have a [...] food, housing, medical care, and heating?Somewhat hard08/08/2024[facility] [place] Occupational [employer] - Occupational Stress QuestionnaireAnswerDate [...] sleep or slept in ashelter (including now)?Patient qjldibss65/03/2024 Housing Stability Vital SignAnswerDate RecordedIn the last 12 months, was there a time when you were not able to pay the mortgage or rent on time?No08/08/2024In the past 12 months, how many times have you moved where you were living?0 08/08/2024t any time in the past 12 months, were you homeless or living in a prison (including now)?No08/08/2024CommentsUnknownSex and Gender InformationValueDate RecordedSex Assigned at BirthNot on fileLegal SexFemale 04/19/2022 6:40 PM EDTGender IdentityNot on fileSexual OrientationNot on file documented as of this encounter Functional Status * AUDIT-C ScoreAnswerDate of WwxbbrxfegTeemnz228/04/2025 11:04 AM Arturo Generic * Q1: How often do you have a drink containing alcohol?AnswerDate of Assessment UyncoqJmhen35/04/2025 11:04 AM Arturo, Generic * Q2: How many drinks containing alcohol do you have on a typical day when you are drinking?AnswerDate of AssessmentAuthorPatient does not drink08/08/2024 11:04 AM Arturo, Generic * Q3: How often do you have six or more drinks on one occasion?AnswerDate of RoxfzdlswvNeppioJpwda90/04/2025 11:04 AM Isabelle Morris documented as of this encounter Plan of Treatment DateTypeDepartmentCare Team (Latest Contact Info)Chufygivzlm60/04/2025 8:20 AM EDTOffice Visit [facility] [address] [place] [address] Jodi Holden, PA [address] [place] [address] 12/07/2025 2:00 PM ESTProcedure Visit [facility] [place] [facility] [address] [place] [address] Rubens Tim, DO [address] [place] [address] documented as of this encounter Procedures Procedure NamePriorityDate/TimeAssociated DiagnosisCommentsUS BREAST BI LIMITED 08/31/2023 1:39 PM EDT documented in this encounter Results * US BREAST BI LIMITED (08/31/2023 1:39 PM EDT)Anatomical RegionLaterality ModalityOtherSpecimen (Source)Anatomical Location / LateralityCollection Method / VolumeCollection TimeReceived Time08/31/2023 1:39 PM EDT Narrative 08/31/2023 1:40 PM EDT The [facility] ?[address] ? [place] [address] ? Ultrasound Report ? Signed ? Patient: VIJAYA TRAN ?MR#: [id number] ?? : 1985 ?Acct:[id number] ?? Age/Sex: 37 / F ?ADM Date: 08/31/23 ?? Loc: MAMMO ? Attending Dr: Rubens Tim D.O. ? Ordering Physician: Rubens Tim D.O. ?? Date of Service: 08/31/23 ?? Procedure(s): US breast BI limited ?? Accession Number(s): [id number] ? cc: Rubens Tim D.O.; Cas Galicia M.D. ? Patient Name: ? VIJAYA TRAN ? MR#: [id number] ? : 1985 ? Exam Date: 08/31/2023 ?? Ordering Doctor: DR Rubens Tim . ? RADIOLOGY REPORT ? PROCEDURE: ? MM TOMOSYNTHESIS DIAGNOSTIC BI, 08/31/2023, 12:52 ?? US BREAST BI LIMITED, 08/31/2023, 13:08 ? COMPARISON: ? US BREAST LARS LIMITED, 10/19/2021. ??MG MAMM DIAGNOSTIC 3D LARS ?? CAD, 10/19/2021. ? INDICATIONS: ? Left breast lump ? Calculator Name ? NCI Breast Cancer Risk Assessment Tool ?? 5 Year Breast Cancer Risk ? 0.50% ?? Lifetime Breast Cancer Risk ? 9.90% ?? Personal Breast Cancer ?No ?? Personal Ovarian Cancer ? No ?? Treatments ? None ?? Family Cancers ? Mother with cervical cancer at age ??50. ? LOCATION: ? [facility] ? BREAST COMPOSITION: ? There are scattered areas of fibroglandular density. ? FINDINGS: ? DIAGNOSTIC CATEGORY 2--BENIGN FINDING: ? RIGHT BREAST: ??Skin surface marker overlying the lower-inner quadrant with no ?? appreciable mass. ??No abnormal ultrasound findings within this area. ? LEFT BREAST: ??Skin surface markers overlying the upper outer quadrant with ?? there appears to be a benign lymph node. ??Similar findings seen on today's ?? ultrasound study. ??Skin surface marker overlying the lower-inner quadrant with ?? no appreciable mammographic or ultrasound findings. ? RECOMMENDATIONS: ? ROUTINE MAMMOGRAM AND CLINICAL EVALUATION IN 12 MONTHS. ? PLEASE NOTE: ??A NORMAL MAMMOGRAM DOES NOT EXCLUDE THE POSSIBILITY OF BREAST ?? CANCER. ??A CLINICALLY SUSPICIOUS PALPABLE LUMP SHOULD BE BIOPSIED. ? Dictated by: Jonas Humphrey M.D. on 08/31/2023 at 13:27 ? Approved by: Jonas Humphrey M.D. on 08/31/2023 at 13:39 ? Dictated By: ?Jonas Humphrey M.D. ? Signed By: ?08/31/23 1340 ? DD/ 1339 ? TD/TT: ? Coloring Checker: Procedure Note Radiology, Radiologist, - 08/31/[address] [address] Ultrasound Report Signed Patient: VIJAYA TRAN [facility]#: [id number] : 1985Acct:[id number] Age/Sex: 37 / FADM Date: 08/31/23 Loc: MAMMO Attending Dr: Rubens Tim D.O. Ordering Physician: Rubens Tim D.O. Date of Service: 08/31/23 Procedure(s): US breast BI limited Accession Number(s): [id number] cc: Rubens Tim D.O.; Cas Galicia M.D. Patient Name: VIJAYA TRAN MR#: [id number] : 1985 Exam Date: 08/31/2023 Ordering Doctor: [...] cancer at age 48. LOCATION: The [facility] BREAST COMPOSITION: There are scattered areas [...] M.D. Signed By:08/31/23 1340 DD/ 1339 TD/TT: Coloring Checker: Authorizing ProviderResult TypeResult StatusGeneric External Data Provider CLINISYNC IMAGINGFinal Result documented in this encounter Visit Diagnoses Not on filedocumented in this encounter Care Teams Team MemberRelationshipSpecialtyStart DateEnd Date Cas Galicia MD [address] [place] [phone] [facility] - [facility]/09[facility]23 Cas Galicia MD [address] [place] [address] PCP - [employer] Cas Galicia MD [address] [place] [address] PCP - [place] Agwihjodvl48/1/244documented as of this encounter
--- OUTSIDE RECORDS SUMMARY | 2024-12-10 09:33 | XMS_ITS | Encounter Summary ---
Author Organization [facility] tem Address [id number] [address] [place] [address] Care Team Providers Care Cemetery Manager Name Role Phone Cas Galicia MD Primary Care Provider [phone] Reason for Visit * ReasonCommentsMed Refill Encounter Details DateTypeDepartmentCare Team (Latest Contact Info)Jewengrqfpc66/01/2025Refill [facility] [address] [place] [phone] Akila Ballard MD 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 Social History Tobacco UseTypesPacks/DayYears UsedDateSmoking Tobacco: NeverSmokeless Tobacco: NeverAlcohol UseStandard Drinks/WeekCommentsNot Currently0 (1 standard drink = 0.6 oz pure alcohol)PHQ-2AnswerDate RecordedTotal Bhsty410/30/2023Childcare AnswerDate JugyktbmNexsisykrNsbhkuz28/12/2019EmploymentAnswerDate Recorded QdykdwjkftJihipbu78/12/2019Hunger ScreeningAnswerDate RecordedWithin the past 12 months we worried whether our food would run out before we got money to buy more.Never True11/22/2023Within the past 12 months the food we bought just didn't last and we didn't have money to get more.Never True4Purpose - LifeAnswerDate RecordedPurpose and direction in fqryTmjzqrv17/11/2021 CommentsNoSex and Gender InformationValueDate RecordedSex Assigned at Xzppvp5405/14/2021 2:48 PM EDTLegal WltBhjqly34/06/2015 12:02 PM EDTGender PgegugwuRvyjlt03/09/2022 2:48 PM EDTSexual XwmnsofghnrTixueorw59/09/2022 2:48 PM EDTdocumented as of this encounter Plan of Treatment DateTypeDepartmentCare Team (Latest Contact Info)Biuxojhzhjh40/21/2025 10:30 AM ESTOffice Visit [facility] Department of [facility] [address] [phone] Stella Flowers, MH TEACHERLAWRENCE F. [facility] [address] [phone] 01/05/2025 12:30 PM ESTClinical Support [facility] - [facility] [address] [place] [address], [address] [place] [phone] [place] Trivedi, [facility]-DOCUMENT SPECIALIST [address] [place] [address] [address] [place] [phone] 01/27/2025 4:15 PM ESTOffice Visit [facility] [address] [place] [address], [address] [place] [phone] Terri Smith MD [address] [facility] [address] [place] [address] 11/24/2025 10:00 AM EDTOffice Visit [facility] Adult [facility], A Department of [facility] [address] [phone] Akila Ballard MD 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
--- OUTSIDE RECORDS SUMMARY | 2024-12-10 09:33 | XMS_ITS | Encounter Summary ---
Author Organization [facility] tem Address [id number] [address] [place] [address] Care Team Providers Care Manager Advertising Name Role Phone Cas Galicia MD Primary Care Provider [phone] Encounter Details DateTypeDepartmentCare Team (Latest Contact Info)Vpmzkhekumb52/22/2025Results Follow-Up [facility], A Department of [facility] [address] [phone] Akila Ballard MD [address] [address] T4, free, TSH, T3, free Social History Tobacco UseTypesPacks/DayYears UsedDateSmoking Tobacco: NeverSmokeless Tobacco: NeverAlcohol UseStandard Drinks/WeekCommentsNot Currently0 (1 standard drink = 0.6 oz pure alcohol)PHQ-2AnswerDate RecordedTotal Yoglk480/30/2023Childcare AnswerDate KiasjpliKkvstggyxRlghmlt66/12/2019EmploymentAnswerDate Recorded WcxkvosxnpDhevlqk79/12/2019Hunger ScreeningAnswerDate RecordedWithin the past 12 months we worried whether our food would run out before we got money to buy more.Never True11/22/2023Within the past 12 months the food we bought just didn't last and we didn't have money to get more.Never True4Purpose - LifeAnswerDate RecordedPurpose and direction in zwnfEtcuzor06/11/2021 CommentsNoSex and Gender InformationValueDate RecordedSex Assigned at Ytlhxo1605/14/2021 2:48 PM EDTLegal AhtHxhuou30/06/2015 12:02 PM EDTGender ExmdkyisVrarwd79/09/2022 2:48 PM EDTSexual BlgdeixxqqxOrriyvjr75/09/2022 2:48 PM EDTdocumented as of this encounter Plan of Treatment DateTypeDepartmentCare Team (Latest Contact Info)Bibofbzlsul72/21/2025 10:30 AM ESTOffice Visit [facility], A Department of [facility] [address] [address] Stella Flowers, LIGHT RAIL VEHICLE OPERATOR-MOLECULAR MODELER [address] [phone] 01/05/2025 12:30 PM ESTClinical Support [facility] - ENT [address] [place] [address], [address] [place] [phone] [place] Trivedi, [facility]-COLLECTIONS PROFESSIONAL [address] [place] [address] [address] [place] [phone] 01/27/2025 4:15 PM ESTOffice Visit [facility] - ENT [address] [place] [address], [address] [place] [address] Terri Smith MD [address] [facility] [address] [place] [address] 11/24/2025 10:00 AM EDTOffice Visit [facility], A Department of [facility] [address] [address] Akila Ballard MD [address] [address] documented as of this encounter Visit Diagnoses Not on filedocumented in this encounter Additional Health Concerns AssessmentNoted TimePHQ-9 Depression Total Score: 3:26 PM EST documented as of this encounter Care Teams Team MemberRelationshipSpecialtyStart DateEnd Date Cas Galicia MD PCP - GeneralFamily Lqxabucv12/14/21documented as of this encounter
--- OUTSIDE RECORDS SUMMARY | 2024-12-10 09:33 | XMS_ITS | Encounter Summary ---
Author Organization [facility] Address [address] [place] [address] Care Team Providers Care Grade Setter Name Role Phone Cas Galicia MD Primary Care Provider [phone] Cas Galicia MD Unavailable Encounter Details DateTypeDepartmentCare Team (Latest Contact Info)Jwmgonoglsj35/22/2024Clinisync Result Encounter [facility] External [facility] Unsolicited Provider, [...] other ways by your partner or ex-partner?Patient karzjiop48/04/2025Within the last year, have you been kicked, [...] you get together with friends or relatives?Patient pmwcahvs84/04/2025How often do you attend jew or sabianist services?Patient najpyfca87/04/2025Do you belong to any clubs or organizations such as jew groups, unions, fraternal or athletic groups, or school groups?No08/08/2024How often do you attend meetings of the clubs or organizations you belong to?Patient qsswvumf92/04/2025re you , , , , never , or living with a partner?Muftbzk7008/08/2024UDIT-CAnswerDate RecordedQ1: How often do you have a [...] like food, housing, medical care, and heating?Somewhat hard08/08/2024[facility] of Occupational Health - Occupational Stress QuestionnaireAnswerDate [...] pay the mortgage or rent on time?Patient oisnauie56/03/2024In the last 12 months, how many places have you lived?1 04/08/2023In the last 12 months, was there a time when you did not have a steady place to sleep or slept in ashelter (including now)?Patient pwciwkav73/03/2024 Housing Stability Vital SignAnswerDate RecordedIn the last 12 months, was there a time when you were not able to pay the mortgage or rent on time?No08/08/2024In the past 12 months, how many times have you moved where you were living?0 08/08/2024t any time in the past 12 months, were you homeless or living in a mcfp (including now)?No08/08/2024CommentsNoSex and Gender Information ValueDate RecordedSex Assigned at BirthNot on fileLegal EvtYgfqwb24/15/2023 6:40 PM EDTGender IdentityNot on fileSexual OrientationNot on filedocumented as of this encounter Functional Status * AUDIT-C ScoreAnswerDate of SkznqintccNyyfyq990/04/2025 11:04 AM EDAnna Marie, Generic * Q1: How often do you have a drink containing alcohol?AnswerDate of Assessment LupwjhIhvvr43/04/2025 11:04 AM EDMAXWELLychart, Generic * Q2: How many drinks containing alcohol do you have on a typical day when you are drinking?AnswerDate of AssessmentAuthorPatient does not drink08/08/2024 11:04 AM EDAnna Marie, Generic * Q3: How often do you have six or more drinks on one occasion?AnswerDate of SyfqobucgrUbitzlYxiqp47/04/2025 11:04 AM Arturo, Generic documented as of this encounter Plan of Treatment DateTypeDepartmentCare Team (Latest Contact Info)Tpgllgqyjol73/03/2026 8:20 AM EDTOffice Visit [facility] [address] [place] [address] Jodi Holden, PA [address] [place] [address] 12/07/2025 2:00 PM ESTProcedure Visit [facility] [place] [facility] [address] [place] [phone] Rodolfo Tim, DO [address] [facility] [address] [place] [address] documented as of this encounter Procedures Procedure NamePriorityDate/TimeAssociated DiagnosisCommentsUS PELVIS W/ MJSNXAZIIOXO16/22/2024 10:36 AM EDT documented in this encounter Results * US PELVIS W/ TRANSVAGINAL (11/27/2023 10:36 AM EDT)Anatomical RegionLaterality ModalityOtherSpecimen (Source)Anatomical Location / LateralityCollection Method / VolumeCollection TimeReceived Time11/27/2023 10:36 AM EDT Narrative 11/27/2023 10:38 AM EDT [facility] ?[address] ? [place] [address] ? Ultrasound Report ? Signed ? Patient: VIJAYA TRAN ?MR#: [id number] ?? : 1985 ?Acct:[id number] ?? Age/Sex: 37 / F ?ADM Date: 11/26/23 ?? Loc: US ? Attending Dr: Rodolfo Tim D.O. ? Ordering Physician: Rodolfo Tim D.O. ?? Date of Service: 11/26/23 ?? Procedure(s): US pelvis w/ transvaginal ?? Accession Number(s): [id number] ? cc: Rodolfo Tim D.O.; Cas Galicia M.D. ? [facility] ? [address] ? [place] [address] ? Patient Name: ?? VIJAYA TRAN ? MRN: [facility]:[id number] ? date: 1985 ?Sex: F ?? Assigned Patient Location: ?? Current Patient Location: ?? Accession/Order Number: [id number] ?? Exam Date: 11/26/2023 ??07:40 ?Report Date: 11/27/2023 ??10:36 ? At the request of: ?? RODOLFO ??GEORGE ? Procedure: ??US pelvis w/ transvaginal ? EXAMINATION: US pelvis w/ transvaginal ? HISTORY: Polycystic Ovarian Syndrome E28.2 ? COMPARISON: 08/30/2023 ? FINDINGS: ? The uterus is surgically absent ? The right ovary measures 2.3 x 2.5 x 2.3 cm. Normal color Doppler flow. Area ?? of ?? anechoic echogenicity with some low-level echoes measuring 1.7 x 2.7 x 1.9 cm, ? no color flow. I favor a cyst ? The left ovary measures 4.0 x 3.6 x 2.8 cm. Normal color Doppler flow. ?? Multiple ?? areas of anechoic echogenicity measuring up to 1.5 cm, cyst versus follicle ? US/US pelvis w/ transvaginal ?? IMPRESSION: ? Bilateral ovarian cysts, not meeting criteria for polycystic ovarian ?? morphology ? Electronically authenticated by: BELÉN ??RAYMOND ?? Date: 11/27/2023 ??10:36 ? Dictated By: ?Belén Andrade M.D. ? Signed By: ?11/27/23 1038 ? DD/ 1036 ? TD/TT: ? Orthopedics Nurse: Procedure Note Radiology, Radiologist, - 11/27/2023 [place] [address] Ultrasound Report Signed Patient: VIJAYA TRAN [facility]#: [id number] : 1985Acct:[id number] Age/Sex: 37 / FADM Date: 11/26/23 Loc: US Attending Dr: Rodolfo Tim D.O. Ordering Physician: Rodolfo Tim D.O. Date of Service: 11/26/23 Procedure(s): US pelvis w/ transvaginal Accession Number(s): [id number] cc: Rodolfo Tim D.O.; Cas Galicia M.D. The [address] [address] Patient Name: VIJAYA TRAN MRN: [facility]:[id number] date: 1985 Sex: F Assigned Patient Location: Current Patient Location: Accession/Order Number: [id number] Exam Date: 11/26/2023 07:40 Report Date: 11/27/2023 [...] M.D. Signed By:11/27/23 1038 DD/ 1036 TD/TT: Orthopedics Nurse: Authorizing ProviderResult TypeResult StatusGeneric External Data Provider CLINISYNC IMAGINGFinal Result documented in this encounter Visit Diagnoses Not on filedocumented in this encounter Care Teams Team MemberRelationshipSpecialtyStart DateEnd Date Cas Galicia MD [address] [place] [address] PCP - GeneralFamily Medicine04/09/23 Cas Galicia MD [address] [place] [address] PCP - [place] Jrjkhlhgsb82/1/244documented as of this encounter
--- OUTSIDE RECORDS SUMMARY | 2024-12-10 09:33 | XMS_ITS | Encounter Summary ---
Author Organization [facility] Address [address] [place] [address] Care Team Providers Care Analytics Analyst Name Role Phone Cas Galicia MD Primary Care Provider [phone] Cas Galicia MD Unavailable Cas Galicia MD Unavailable Encounter Details DateTypeDepartmentCare Team (Latest Contact Info)Qnctaibzbov88/16/2024Clinisync Result Encounter [facility] Department Unsolicited Provider, [...] other ways by your partner or ex-partner?Patient /04/2025Within the last year, have you been kicked, [...] you get together with friends or relatives?Patient xnhynulo50/04/2025How often do you attend sikh or amish services?Patient fokrtckp78/04/2025Do you belong to any clubs or organizations such as sikh groups, unions, fraternal or athletic groups, or school groups?No08/08/2024How often do you attend meetings of the clubs or organizations you belong to?Patient ykmesgyl50/04/2025re you , , , , never , or living with a partner?Athonru7308/08/2024UDIT-CAnswerDate RecordedQ1: How often do you have a [...] food, housing, medical care, and heating?Somewhat hard08/08/2024[place] [place] [facility] [employer] [facility] - Occupational Stress QuestionnaireAnswerDate [...] pay the mortgage or rent on time?Patient qookmiug72/03/2024In the last 12 months, how many places have you lived?1 04/08/2023In the last 12 months, was there a time when you did not have a steady place to sleep or slept in ashelter (including now)?Patient yfgwutnr99/03/2024 Housing Stability Vital SignAnswerDate RecordedIn the last 12 months, was there a time when you were not able to pay the mortgage or rent on time?No08/08/2024In the past 12 months, how many times have you moved where you were living?0 08/08/2024t any time in the past 12 months, were you homeless or living in a jail (including now)?No08/08/2024CommentsUnknownSex and Gender InformationValueDate RecordedSex Assigned at BirthNot on fileLegal SexFemale 04/19/2022 6:40 PM EDTGender IdentityNot on fileSexual OrientationNot on file documented as of this encounter Functional Status * AUDIT-C ScoreAnswerDate of QknqnnjxleRqfwoe889/04/2025 11:04 AM Arturo Generic * Q1: How often do you have a drink containing alcohol?AnswerDate of Assessment JjckmiDwayv65/04/2025 11:04 AM Arturo, Generic * Q2: How many drinks containing alcohol do you have on a typical day when you are drinking?AnswerDate of AssessmentAuthorPatient does not drink08/08/2024 11:04 AM Arturo, Generic * Q3: How often do you have six or more drinks on one occasion?AnswerDate of VvbywdhjusIvfvtmMznus39/04/2025 11:04 AM Isabelle Morris documented as of this encounter Plan of Treatment DateTypeDepartmentCare Team (Latest Contact Info)Fudkiafwmqy05/04/2025 8:20 AM EDTOffice Visit [facility] [address] [place] [address] Jodi Holden, PA [address] [place] [address] 12/07/2025 2:00 PM ESTProcedure Visit [facility] [address] [place] [address] Rubens Tim, DO [address] [facility] [place] [address] documented as of this encounter Procedures Procedure NamePriorityDate/TimeAssociated DiagnosisCommentsUS RENAL BI08/21/2023 11:25 AM EDT documented in this encounter Results * US RENAL BI (08/21/2023 11:25 AM EDT)Anatomical RegionLateralityModalityOther Specimen (Source)Anatomical Location / LateralityCollection Method / Volume Collection TimeReceived Time08/21/2023 11:25 AM EDT Narrative 08/21/2023 11:28 AM EDT [facility] ?[address] ? [place] [address] ? Ultrasound Report ? Signed ? Patient: VIJAYA TRAN ?MR#: [id number] ?? : 1985 ?Acct:[id number] ?? Age/Sex: 37 / F ?ADM Date: 08/21/23 ?? Loc: US ? Attending Dr: Loraine SERRA ? Ordering Physician: Loraine Burnham ?? Date of Service: 08/21/23 ?? Procedure(s): US renal BI ?? Accession Number(s): [id number] ? cc: Cas Galicia M.D.; Loraine Burnham ? [facility] ? [address] ? [place] [address] ? Patient Name: ?? VIJAYA TRAN ? MRN: [facility]:[id number] ? date: 1985 ?Sex: F ?? Assigned Patient Location: US ?? Current Patient Location: US ?? Accession/Order Number: [id number] ?? Exam Date: 08/21/2023 ??10:50 ?Report Date: 08/21/2023 ??11:25 ? At the request of: ?? LORAINE BURNHAM ? Procedure: ??US renal BI ? EXAMINATION: US renal BI ? HISTORY: Kidney Stone N20.0 ? COMPARISON: 09/02/2022 ? TECHNIQUE: Ultrasound examination was performed of the bladder. ? FINDINGS: ? Right Kidney: Normal in size, contour and echotexture. The cortex measures 1.2 ? cm. No solid cortical mass, hydronephrosis or obstructing nephrolithiasis ?? Height: 4.33 cm Length: 10.77 cm Width: 4.47 cm ? Left Kidney: Normal in size, contour and echotexture. The cortex measures 0.9 ?? cm. No solid cortical mass. Mild pelviectasis. 8 mm nonobstructing nephrolith ?? Height: 4.46 cm Length: 12.12 cm Width: 5.44 cm ? Urinary bladder: 243 mL. Post void imaging not performed. No bladder mass. ? US/US renal BI ?? IMPRESSION: ? Mild left pelviectasis and nonobstructing nephrolithiasis ? Electronically authenticated by: BELÉN ??RAYMOND ?? Date: 08/21/2023 ??11:25 ? Dictated By: ?Belén Andrade M.D. ? Signed By: ?08/21/23 1128 ? DD/ 1125 ? TD/TT: ? Scheduling Agent: Procedure Note Radiology, Radiologist, - 08/21/2023 [place] [address] Ultrasound Report Signed Patient: VIJAYA TRAN [facility]#: [id number] : 1985Acct:[id number] Age/Sex: 37 / FADM Date: 08/21/23 Loc: US Attending Dr: Loraine SERRA Ordering Physician: Loraine Burnham Date of Service: 08/21/23 Procedure(s): US renal BI Accession Number(s): [id number] cc: Cas Galicia M.D.; Loraine Burnham The [address] [address] Patient Name: VIJAYA TRAN MRN: [id number] date: 1985 Sex: F Assigned Patient Location: US Current Patient Location: US Accession/Order Number: [id number] Exam Date: 08/21/2023 10:50 Report Date: 08/21/2023 [...] M.D. Signed By:08/21/23 1128 DD/ 1125 TD/TT: Scheduling Agent: Authorizing ProviderResult TypeResult StatusGeneric External Data Provider CLINISYNC IMAGINGFinal Result documented in this encounter Visit Diagnoses Not on filedocumented in this encounter Care Teams Team MemberRelationshipSpecialtyStart DateEnd Date Cas Galicia MD [address] [place] [address] [facility] - [facility] Cas Galicia MD [address] [place] [address] PCP - [place] [employer]/ Cas Galicia MD [address] [place] [address] PCP - [place] Qsucyhcfcc59/1/244documented as of this encounter
--- OUTSIDE RECORDS SUMMARY | 2024-12-10 09:33 | XMS_ITS | Encounter Summary ---
Author Organization [facility] tem Address [id number] [address] [place] [address] Care Team Providers Care Wedding Cake Designer Name Role Phone Cas Galicia MD Primary Care Provider [phone] Encounter Details DateTypeDepartmentCare Team (Latest Contact Info)Euuujdziynh13/23/2025Orders Only [facility] Adult Endocrinology, A Department of [facility] [address] [phone] Akila Ballard MD 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) Social History Tobacco UseTypesPacks/DayYears UsedDateSmoking Tobacco: NeverSmokeless Tobacco: NeverAlcohol UseStandard Drinks/WeekCommentsNot Currently0 (1 standard drink = 0.6 oz pure alcohol)PHQ-2AnswerDate RecordedTotal Gbmie805/30/2023Childcare AnswerDate SiolwfntLnfmktpypEicfbdu49/12/2019EmploymentAnswerDate Recorded KdlldygytzPkzcysa62/12/2019Hunger ScreeningAnswerDate RecordedWithin the past 12 months we worried whether our food would run out before we got money to buy more.Never True11/22/2023Within the past 12 months the food we bought just didn't last and we didn't have money to get more.Never True4Purpose - LifeAnswerDate RecordedPurpose and direction in fiulBlqloni33/11/2021 CommentsNoSex and Gender InformationValueDate RecordedSex Assigned at Dxjwhi6205/14/2021 2:48 PM EDTLegal TjpSckjqj54/06/2015 12:02 PM EDTGender IrtwulwoTddfef77/09/2022 2:48 PM EDTSexual MljqhqzzxjmFcpddahw58/09/2022 2:48 PM EDTdocumented as of this encounter Plan of Treatment DateTypeDepartmentCare Team (Latest Contact Info)Pothcqmjgmd73/21/2025 10:30 AM ESTOffice Visit [facility] Neurology, A Department of [facility] [address] [address] Stella Flowers, BRAND SALES MANAGER-FUEL SYSTEM MAINTENANCE WORKER [address] [phone] 01/05/2025 12:30 PM ESTClinical Support [facility] [address] [place] [address], [address] [place] [address] Argentina Trivedi, [employer] STATION MANAGER [address] [place] [address] [address] [place] [address] 01/27/2025 4:15 PM ESTOffice Visit [facility] [address] [place] [address], [address] [place] [address] Terri Smith MD [address] [facility] [address] [place] [address] 11/24/2025 10:00 AM EDTOffice Visit [facility] Adult Endocrinology, A Department of [facility] [address] [address] Akila Ballard MD [address] [address] NameTypePriorityAssociated DiagnosesOrder ScheduleT4, freeLabRoutine Hypothyroidism due to [...] Date Cas Galicia MD PCP - GeneralFamily Wymxdycj82/14/21documented as of this encounter
--- OUTSIDE RECORDS SUMMARY | 2024-12-10 09:33 | XMS_ITS | Clinical Summary ---
Author Organization [facility] Address [address] [place] [address] Phone Care Team Providers Care Er Registrar Name Role Phone Cas Galicia MD Primary Care Provider + Social History Tobacco UseTypesPacks/DayYears UsedDateSmoking Tobacco: Never Assessed CommentsUnknownSex and Gender InformationValueDate RecordedSex Assigned at Not on fileLegal AyuPcpduj65/25/2022 4:23 PM ESTGender IdentityNot on fileSexual OrientationNot on file Plan of Treatment Not on file Care Teams Team MemberRelationshipSpecialtyStart DateEnd Date Cas Galicia MD PCP - General05/11/15
--- OUTSIDE RECORDS SUMMARY | 2024-12-10 09:33 | XMS_ITS | Clinical Summary ---
Author Organization [facility] tem Address [id number] [address] [place] [address] Care Team Providers Care Industrial Relations Worker Name Role Phone Cas Galicia MD Primary Care Provider [phone] Allergies Active AllergyReactionsCriticalityNoted DateCommentsGloves, Latex With Aloe Vera 08/18/2021 Other reaction(s): Unknown MxcrarlElpsWcc98/30/2012upropionOther (See Comments)06/21/2022 Reports like seizure activity and the fall asleep CefaclorAnaphylaxis,Swelling,Shortness Of YffrpqTirk50/30/2012 Other reaction(s): Unknown ClindamycinRash,Shortness Of Breath,TofvdkolUlad01/19/2015Drospirenone-Ethinyl Qonujppah65/30/2012 Makers her asthma flair up Other reaction(s): Other: See Comments Skin discoloration of feet with OCPs ErythromycinShortness Of Breath,IswaonimToqs98/30/2012EucalyptusAnaphylaxisHigh 12/15/2020Fish Containing NkoydsmoMsfhhCnroah32/20/2022GatifloxacinDiarrhea 12/15/20205778NnxqzwfqdQqrdIrybps52/30/2012 Due to clotting disorder-Aleve OxvzfbuDlcarrooaaxMnbi90/30/2012Iodinated Contrast MediaAnaphylaxisHigh 02/23/2014 Other reaction(s): Unknown Does not tolerate with pre-medication Latex, Natural RubberSwelling,Itching,YwczZpm1709/04/2011 Skin cracks and bleeds Lavender (Lavandula Angustifolia)NlagokggikeWbhc75/09/2021LevofloxacinRashLow 12/15/20208664UoeyqfiDjrjr57/23/3892Lupfpyqwmsjki11/26/2022Norethindrone Ac-Eth Tmtysypmq78/30/2012 Chest hurt and legs turned black -- saw Dr. Jorge London PenicillinsItching,XhrdHbc7009/04/2011Povidone-SrwparVosaSbk89/19/2023Rofecoxib JlubAqk6009/04/2011Shellfish ArljccpFecruOaiavz76/20/2022ulfa (Sulfonamide Antibiotics)Shortness Of RleprtRaqx68/10/7688Ytdsoogapeifrqgx16/14/2022 Other reaction(s): Unknown Sulfamethoxazole-TrimethoprimOther (See Comments)High01/23/2014 Cant breathe DvvfmdmqfmlbAntybtfcjgwKvoi41/31/2022ZolpidemOther (See Comments)High05/24/2022 Uncontrolable limb movements Medications * [...] and 27 mg before bedtime. 600 mg.Active SYNTHROID 100 mcg tablet Indications:Hypothyroidism due to [...] the skin every 28 days. 4.5 mL 5Active zonisamide (ZONEGRAN) 100 mg capsule Indications:Migraine without aura and without status migrainosus, not intractableTake 2 capsules (200 mg total) by mouth in the evening. 180 capsule 5Active potassium chloride (K-TAB,KLOR-CON) 10 MEQ CR tablet Take 1 tablet (10 mEq total) by mouth in the morning.5Active liothyronine (CYTOMEL) 5 MCG tablet Indications: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TAKE 1 TABLET (5 MCG TOTAL) BY MOUTH IN THE MORNING. 90 tablet 5Active liothyronine (CYTOMEL) 5 MCG tablet Indications: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TAKE 1 TABLET (5 MCG TOTAL) BY MOUTH IN THE MORNING. 90 tablet 5102/08/2024Discontinued Active Problems ProblemNoted DateDiagnosed UuevHkgrqck27/26/2022OVID- dottie bashir manifesting chronic neurologic mbbdqopk82/26/2022OVID- dottie bashir manifesting chronic lpfkfzg8603/02/2021Memory xwgshqvdbwve59/26/2022rain fog03/02/2021Word finding ckdymymprw37/26/3099Pwtwhzzdfti52/26/2022Trapezius muscle spasm03/02/2021 Hypersomnia with sleep apnea03/02/2021spirin kdpsbyg2702/10/2021ost-viral cdvcfoet23/06/2022 Overview (02/10/2021): Autonomic dysfunction History of lngsktbxkmdi05/06/2022utonomic epvktlxkeyl51/06/2022Bradycardia 12/24/2020hest pain12/24/20208723Guogzefwus09/19/2021GERD (gastroesophageal reflux disease)12/24/20201724Ajeilbevrwafhk78/19/2021Migraine without aura and without status migrainosus, not skhqaudyozx62/19/2021OSA (obstructive sleep apnea) 12/24/2020iabetes hrnwbxda39/19/2021TSD (post-traumatic stress disorder) 12/24/2020rachnoid cyst12/22/2015 Resolved Problems ProblemNoted DateDiagnosed DateResolved YugtDYDSP79/19/202105/ Encounters DateTypeDepartmentCare PlxeXjvvsbhlzal85/01/2025Refill [facility] [address] [place] [address] Akila Ballard MD Hypothyroidism due to Cesar's aquiezcfhfn29/23/2025Orders Only [facility] Adult Endocrinology, A Department of [facility] [address] [address] Akila Ballard MD 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 - ENT [address] [place] [address], [address] [place] [address] Ref Prov, Not In System 10/28/2024 8:[address] [facility] - ENT [address] [place] [address], [address] [place] [address] Terri Smith MD Chronic sinusitis (Primary Dx); Vocal cord dysfunction; Geographic tongue; Hypertrophy of both inferior nasal turbinates; Tympanosclerosis, bilateral; Severe persistent asthma without complication ([facility])10/28/2024Travel 09/22/2024Refill [facility] Neurology, A Department of [address] [address] Alina Garcia, [facility] 09/15/2024Refill [facility] Neurology, A Department of [address] [phone] Stella Flowers, WAREHOUSE RECORD CLERK-SURVEYOR HELPER Migraine without aura and without status migrainosus, [...] drink = 0.6 oz pure alcohol)PHQ-2AnswerDate RecordedTotal Oefld644/30/2023ChildcareAnswerDate SieddybzPjmzeebcjUpwlsat71/12/2019EmploymentAnswerDate RecordedEmploymentUnknown 07/17/2018Hunger ScreeningAnswerDate RecordedWithin the past 12 months we worried whether our food would run out before we got money to buy more.Never True11/22/2023Within the past 12 months the food we bought just didn't last and we didn't have money to get more.Never True4Purpose - LifeAnswerDate RecordedPurpose and direction in tehrLmcrqhe05/11/2021CommentsNoSex and Gender InformationValueDate RecordedSex Assigned at XbyxgBinuia61/09/2022 2:48 PM EDTLegal VdiCxbbty71/06/2015 12:02 PM EDTGender TzdqkmelQjjzaj66/09/2022 2:48 PM EDTSexual MduqwancgbgSodxbmls02/09/2022 2:48 PM EDT Last Filed Vital Signs Vital SignReadingTime TakenCommentsBlood Mgmgwjed457/7511/24/2024 10:12 AM EDT Owqjm259511/24/2024 10:12 AM COHHfoopxachjy36.6 ??C (97.9 ??F)10/28/2024 8:18 AM EDTRespiratory Yeig7939 10:12 AM EDTOxygen Ktfqnkwiyh34%05/18/2021 10:24 AM EDTInhaled Oxygen Concentration--Vtqaxb362.2 kg (234 lb 3.2 oz)11/24/2024 10:12 AM YOFCymczp382.6 cm (5' 4 )11/24/2024 10:12 AM EDTBody Mass Index40.2 11/24/2024 10:12 AM EDT Plan of Treatment DateTypeDepartmentCare Team (Latest Contact Info)Uzgambrxbkl76/21/2025 10:30 AM ESTOffice Visit [facility] Department of [facility] [address] [address] Stella Flowers, WAREHOUSE RECORD CLERK-SURVEYOR HELPER [address] [address] 01/05/2025 12:[address] [facility] - ENT [address] [place] [address], [address] [place] [address] Argentina Trivedi, SILVA-EMAIL CAMPAIGN SPECIALIST [address] [place] [address] [address] [place] [address] 01/27/2025 4:[address] [facility]NT [address] [facility], [address] [place] [address] Terri Smith MD [address] [facility] [address] [place] [address] 11/24/2025 10:00 AM EDTOffice Visit [facility] Adult Endocrinology, A Department of [facility] [address] [phone] Akila Ballard MD 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 T4, GBCXUlpkopl13/20/2025 11:00 AM EDT 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 CT SINUSES WO PRLCKwywjay09/26/2025 10:22 AM EDTfrom Last 3 Months Results * T3, free (11/24/2024 11:00 AM EDT)ComponentValueRef RangeTest MethodAnalysis TimePerformed AtPathologist SignatureFREE T32.652.50 - 3.90 pg/mL11/24/2024 1:55 PM [facility] LABORATORYSpecimen (Source)Anatomical Location / LateralityCollection Method / VolumeCollection TimeReceived Time BloodVenous blood / UnknownVenipuncture / Xfohyei5311/24/2024 11:00 AM EDT 11/24/2024 11:00 AM EDT Narrative Authorizing ProviderResult TypeResult StatusAkila MILAN BLOOD ORDERABLESFinal ResultPerforming OrganizationAddressCity/State/ZIP CodePhone Number [facility] [address] [place] [address], * TSH (11/24/2024 11:00 AM EDT)ComponentValueRef RangeTest MethodAnalysis Time Performed AtPathologist SignatureTSH0.890.49 - 4.67 uIU/mL11/24/2024 1:56 PM [facility] LABORATORYSpecimen (Source)Anatomical Location / LateralityCollection Method / VolumeCollection TimeReceived TimeBloodVenous blood / UnknownVenipuncture / Hbhioxd5411/24/2024 11:00 AM EDT1 11:00 AM EDT Narrative Authorizing ProviderResult TypeResult StatusAkila MILAN BLOOD ORDERABLESFinal ResultPerforming OrganizationAddressCity/State/ZIP CodePhone Number [address] [place] [address], * T4, free (11/24/2024 11:00 AM EDT)ComponentValueRef RangeTest MethodAnalysis TimePerformed AtPathologist SignatureFREE T40.610.61 - 1.60 ng/dL11/24/2024 1:57 PM [facility] LABORATORYSpecimen (Source)Anatomical Location / LateralityCollection Method / VolumeCollection TimeReceived Time BloodVenous blood / UnknownVenipuncture / Aoiksgy4111/24/2024 11:00 AM EDT 11/24/2024 11:00 AM EDT Narrative Authorizing ProviderResult TypeResult StatusAkila MILAN BLOOD ORDERABLESFinal ResultPerforming OrganizationAddressCity/State/ZIP CodePhone Number [facility] [address] [place] [address], * CT sinuses without contrast (10/31/2024 10:22 AM EDT)Anatomical Region LateralityModalityNeuro, Face, Neuro CoveraN/AComputed Tomography Narrative Authorizing ProviderResult TypeResult StatusNot In System Ref ProvIMG CT ORDERABLESFinal Result from Last 3 Months Insurance * Guarantor: Vijaya Tran TypeRelation to PatientDate of BirthPhone Billing AddressPersonal/WgiylgTsqf25/15/1986 [address] [address] MemberSubscriberPlan / Payer (Effective 2022-Present)Name:Vijaya Tran Member ID:[id number] Relation to Subscriber:SelfName:Vijaya Tran Subscriber ID:[id number] Payer ID:[id number] (NAIC) Type:Not on file Address: [address] [place] [phone] MemberSubscriberPlan / Payer (Effective 2024-Present)Name:Vijaya Tran Relation to Subscriber:SpouseName:VINNY TRAN Date of :1986 Address: [address] [place] [id number] Payer ID:[id number] (NAIC) Type:Not on file Address: [address] [place] [phone] Care Teams Team MemberRelationshipSpecialtyStart DateEnd Date Cas Galicia MD PCP - GeneralFamily Cwjpscae44/14/21
--- OUTSIDE RECORDS SUMMARY | 2024-12-10 09:33 | XMS_ITS | Clinical Summary ---
Author Organization [facility] Address [address] [place] [address] Care Team Providers Care Senior Oracle Applications Developer Name Role Phone Cas Galicia MD Primary Care Provider [phone] Sai Perez MD Unavailable [phone] Rubens Tim DO Unavailable Allergies Active AllergyReactionsCriticalityNoted MaimHtiwksemKuskkvohNcpwrwhfrb05/02/2021 SeuosreItnnreaumg23/19/2015BupropionOther: See Bdsimgsw34/17/2023 Reports like seizure activity and the fall asleep Other reaction(s): Other (See Comments) Reports like seizure activity and the fall asleep Reports like seizure activity and the fall asleep CefaclorShortness of Breath,Anaphylaxis,SujxikfzLthe09/30/2012 Other reaction(s): Unknown Cefuroxime AxetilShortness of Ahckdo0102/23/2014ClindamycinRash,Shortness of Kyzblm7902/23/2014ErythromycinSwelling,Shortness of Breath,Omntqnn3802/23/2014 DpdtlldmgkRugzcmegcww71/18/2021Fish Containing HqsnaunuAsrjmYvmwqh65/20/2022 FxybwcwrkxhnTqsehngo89/16/2015Iodinated Contrast CjaynXqkhiyghxjhOffy95/19/2015 Tolerated with pre-medication on 09/22/21 Other reaction(s): Unknown Does not tolerate with pre-medication LatexRash,Itching,SvknovrWlu19/19/2015 Skin cracks and bleeds Lavender (Lavandula Angustifolia)Fbqhzylkism95/02/2021Norethindrone-Ethin ErwpadflaBjvdozf18/30/2012 Chest hurt and legs turned black -- saw Dr. Jorge London Penicillin G AcdkfgsanrBfstndz42/14/2022enicillinsRash,Qfckmup9802/23/2014 Shellfish OiadpgzBwzkkJjfqdc42/20/2022ulfa (Sulfonamide Antibiotics)Swelling, Shortness of Pwdqkd7705/18/20150230XkwxgwbarMpuakdj19/04/2022rospirenone-Ethinyl EstradiolOther: See Ksrwkogm66/04/2022 Skin discoloration of feet with OCPs Medications [...] 5Active Active Problems ProblemNoted DateDiagnosed DateQualitative platelet egvtkyoy12/27/2023 Psdaodnboron22/15/2022iffuse pain08/23/2021ecreased activity tolerance 08/23/2021rthostatic mhjtjqjapon10/19/2022Moderate persistent asthma without xsabbdnlvxic46/20/2022Gastroesophageal reflux ltymhga0207/25/2021llergic rhinitis 07/25/2021llergic reaction to contrast dye07/25/2021rug aygdxixf89/20/2022 Adverse food wfjgwvwe41/20/2022creening for endocrine xmoskqdp16/10/2022rimary crkszwqnooquha85/10/2022ymptomatic koneefnttmm94/19/2022lood pressure kpdxzichrsb71/19/2022ubjective muscle pttcwpai35/19/2022hysical deconditioning 05/24/2021Transient nrblojsr19/19/2022rthostatic nbmnoasugbdlvfg54/19/2022 Arachnoid cyst of pituitary gland04/07/2015Bleeding wbtyqfth00/19/2015 Encounters DateTypeDepartmentCare YrjdBzalbrmqibq44/26/2025 9:30 AM EDTVisit (SP) Office Hematology/Oncology [address] [place] [address] [place] [address] Shweta Masters APRN.BOWLING OR SKATING FRONT DESK CLERK POTS (postural orthostatic tachycardia syndrome) (Primary Dx); Bleeding disorder; Qualitative platelet disorder (HCC); Systemic lupus erythematosus, unspecified SLE type, unspecified organ involvement status (HCC); Celiac disease (HCC); Irritable bowel syndrome without diarrhea; History of 2019 novel coronavirus disease (COVID-19); Status post hrtibswoophu98/26/2025Travelfrom Last 3 Months Immunizations ImmunizationAdministration DatesNext Dueinfluenza (HD-IIV3) vaccine, age 65+ yr, high dose, trivalent, PF (FLUZONE HIGH-DOSE)11/06/2019influenza (IIV4) vaccine, age 6 mo - 64 yr, quadrivalent, PF (AFLURIA, FLUARIX, FLULAVAL, FLUZONE) 10/27/2019influenza N2O0-4193 virus vaccine, national zdzzgqvit82/15/2020 influenza vaccine, unspecified lfdgbgstgoj27/15/2020,11/06/2019,10/27/2019 Family History Medical HistoryRelationCommentsDiabetesFatherHeart diseaseFatherDied at age 57 HypertensionFatherCardiomyopathyMotherDied at age 52DiabetesMotheruncontrolled Heart AttackMotherFirst [place] at age 51HypertensionMotherIschemic Heart Disease MotherNo Ocular [...] drink = 0.6 oz pure alcohol)PHQ-2AnswerDate RecordedPHQ-2 dxedq7524Area Deprivation IndexAnswerDate RecordedNational Score (1-100), lower number is lower risk86 10/02/2022State Score (1-10), lower number is lower lkhp2413Data from: https://www.neighborhoodatlas.medicine.[facility].edu/. Last address used for [address] 3CommentsNoSex and Gender Information ValueDate RecordedSex Assigned at ZjrjiJtkjph00/22/2021 5:05 PM EDTLegal Sex Juevct5602/20/2014 4:12 PM ESTGender BzwowqogMygbvv97/22/2021 5:05 PM EDTSexual FdmvzrhjsvpTpnmiqmb50/22/2021 5:05 PM EDT Last Filed Vital Signs Vital SignReadingTime TakenCommentsBlood Ptzjmrzu705/80009/30/2024 8:54 AM EDT Mtsxv271109/30/2024 8:54 AM KGMGmdqoyemgoc56.4 ??C (97.5 ??F)09/30/2024 8:54 AM EDTRespiratory Lodd603109/30/2024 8:54 AM EDTOxygen Rzaqdfbdlp332%09/30/2024 8:54 AM EDTInhaled Oxygen Concentration--Siqgbx090.3 kg (229 lb 15 oz)09/30/2024 8:54 AM RXPQkjysp871.6 cm (5' 4.02 )09/30/2024 8:54 AM EDTBody Mass Index39.45 09/30/2024 8:54 AM EDT Plan of Treatment DateTypeDepartmentCare Team (Latest Contact Info)Oehvvemghkd53/25/2026 9:15 AM EDTOffice Visit [facility] [address] [address] 1 year follow up09/29/2025 9:30 AM EDTVisit (SP) Office Hematology/Oncology [address] [place] [address] [place] [address] Shweta Masters APRN.BOWLING OR SKATING FRONT DESK CLERK [address] [address] 1 year follow upHealth MaintenanceDue DateLast DoneCommentsAnnual PCP Team Chronic Disease Visit12/20/2001Anxiety Uetnpecut52/15/2002Depression Screening 12/20/2001HIV Sicboydeq96/15/2002Hepatitis C Jhaquuqut83/15/2002DTaP,Tdap,Td Vaccine (1 - Tdap)12/20/2002Hepatitis B Vaccine (1 of 3 - 19+ 3-dose series) 12/20/2002Pneumococcal Vaccine (1 of 2 - PCV)12/20/2002Cervical Cancer Screening 12/20/2004HPV Vaccine (1 - 3-dose SCDM series)12/20/2010Mammogram Screening 4Covid-19 Vaccine ( season)2024Influenza Vaccine (#1) 510/, 11/06/2019, 11/06/2019, Additional history exists Procedures Procedure NamePriorityDate/TimeAssociated DiagnosisCommentsCOMPREHENSIVE METABOLIC QHSBRQiquenv39/26/2025 8:42 AM EDT Qualitative platelet disorder (HCC) CBC + SNVVMzntmhv08/26/2025 8:42 AM EDT Qualitative platelet disorder (HCC) from Last 3 Months Results * (ABNORMAL) COMPREHENSIVE METABOLIC PANEL (09/30/2024 8:42 AM EDT)Component ValueRef RangeTest MethodAnalysis TimePerformed AtPathologist Signature Protein, Total6.76.3 - 8.0 g/dL09/30/2024 9:10 AM [facility]TNORTH[facility] LABAlbumin4.53.9 - 4.9 g/dL09/30/2024 9:10 AM [facility]TNORTHEN[facility] LABCalcium, Total9.78.5 - 10.2 mg/dL09/30/2024 9:10 AM [facility]TN[facility] LABBilirubin, Total0.30.2 - 1.3 mg/dL 09/30/2024 9:10 AM [facility] LABAlkaline Ytsulrbtilc3454 - 123 U/L09/30/2024 9:10 AM EDTNORTHEN[facility] GTERHO46(L)13 - 35 U/L09/30/2024 9:10 AM [facility]TNOR[facility] CBAHQV296 - 38 U/L09/30/2024 9:10 AM [facility]TN[facility] CPJQbtckrr107(H)74 - 99 mg/dL09/30/2024 9:10 AM EDTMARMET [facility] FOR [facility] LABComment: The [place] Diabetes Association (ADA) provides guidance for cutoff [...] Standards of Medical Care in Diabetes 2016, [place] Diabetes Association. Diabetes Care. 2016.39(Suppl 1). YUW265 - 21 mg/dL09/30/2024 9:10 AM [facility] LAB Creatinine0.97(H)0.58 - 0.96 mg/dL09/30/2024 9:10 AM [facility] ZFIFmgzgh890621 - 144 mmol/L09/30/2024 9:10 AM [facility] LABPotassium3.6(L)3.7 - 5.1 mmol/L09/30/2024 9:10 AM [facility] FDPNonummed95393 - 107 mmol/L09/30/2024 9:10 AM [facility] UUDSZ03276 - 30 mmol/L09/30/2024 9:10 AM [facility] LABAnion Vtj585 - 15 mmol/L09/30/2024 9:10 AM [facility] LABEstimated Glomerular Filtration Rate 76>=60 mL/min/1.73m 09/30/2024 9:10 AM [facility] LABComment:Estimated Glomerular Filtration Rate (eGFR) is [...] VolumeCollection TimeReceived TimeBloodBLOOD SPECIMEN / UnknownVenipuncture / Uuqejhs0709/30/2024 8:42 AM EDT09/30/2024 8:42 AM EDT Narrative Authorizing ProviderResult TypeResult StatusJayme Marinelli MDLABORATORYFinal ResultPerforming OrganizationAddressCity/State/ZIP CodePhone Number [facility] [address] [place] [address] * (ABNORMAL) COMPLETE BLOOD COUNT AND DIFFERENTIAL (09/30/2024 8:42 AM EDT) ComponentValueRef RangeTest MethodAnalysis TimePerformed AtPathologist SignatureWBC9.843.70 - 11.00 k/uL09/30/2024 8:47 AM EDTNORTHEN[facility] LABRBC4.753.90 - 5.20 m/uL09/30/2024 8:47 AM [facility]TNOR[facility] QQKGimlzdollk35.111.5 - 15.5 g/dL09/30/2024 8:47 AM EDT [facility] OZRMzyxuybdyq34.836.0 - 46.0 %09/30/2024 8:47 AM [facility] GVYJCF75.080.0 - 100.0 fL 09/30/2024 8:47 AM [facility] TMJTVS53.726.0 - 34.0 pg09/30/2024 8:47 AM [facility]TNOR[facility] FSSVGZG88.730.5 - 36.0 g/dL09/30/2024 8:47 AM EDTNOR[facility] LABRDW-CV11.9 11.5 - 15.0 %09/30/2024 8:47 AM [facility]OR[facility] LAB Platelet Wsxge330042 - 400 k/uL09/30/2024 8:47 AM [facility]TNOR[facility] LABMPV9.89.0 - 12.7 fL09/30/2024 8:47 AM [facility]TNOR[facility] LABNeutrophils %71.7%09/30/2024 8:47 AM [facility]TNOR[facility] LABAbs Neut7.061.45 - 7.50 09/30/2024 8:47 AM [facility]TN[facility] LABLymphocytes %22.2%09/30/2024 8:47 AM EDNOREYNOLDS [facility] LABAbs Lymph2.181.00 - 4.00 /09/30/2024 8:47 AM EDT [facility] LABMonocytes %3.5%09/30/2024 8:47 AM EDT [facility] LABAbs Mono0.34<0.87 09/30/2024 8:47 AM [facility] LABEosinophils %0.9%09/30/2024 8:47 AM [facility]TN[facility] LABAbs Eosin0.09<0.46 09/30/2024 8:47 AM [facility]ST[facility] LABBasophils %0.6%09/30/2024 8:47 AM [facility] LABAbs Baso0.06<0.11 09/30/2024 8:47 AM [facility] LABImmature Granulocytes %1.1% 09/30/2024 8:47 AM [facility]TN[facility] LABAbs Immature Gran 0.11(H)<0.10 [facility] 8:47 AM [facility]TNOREYN[facility] LAB NRBC0.0/100 WBC09/30/2024 8:47 AM [facility] Absolute nRBC<0.01<0.01 /09/30/2024 8:47 AM [facility] LABDiff ZzlbIrth74/26/2025 8:47 AM EDTNOREYNOLDS [facility] LABSpecimen (Source)Anatomical Location / LateralityCollection Method / Volume Collection TimeReceived TimeBloodBLOOD SPECIMEN / UnknownVenipuncture / Kxocqcc8909/30/2024 8:42 AM EDT09/30/2024 8:42 AM EDT Narrative Authorizing ProviderResult TypeResult StatusVivejoy Marinelli MDLABORATORYFinal ResultPerforming OrganizationAddressCity/State/ZIP CodePhone Number [facility] [address] [place] [address] from Last 3 Months Insurance * Guarantor: Vijaya Del Angel TypeRelation to PatientDate of BirthPhone Billing AddressPersonal/GyohegXgch22/15/[address] [address] Care Teams Team MemberRelationshipSpecialtyStart DateEnd Date Cas Galicia MD PCP - GeneralFamily Medicine02/20/14 Sai Perez MD [address] [place] [address] Primary Staff PhysicianCardiology07/21/21 Rubens Tim DO [address] [place] [address] [place] [address] ReferringOb/Gyn08/05/21
--- OUTSIDE RECORDS SUMMARY | 2024-12-10 09:33 | XMS_ITS | Encounter Summary ---
Author Organization [facility] Address [address] [place] [address] Care Team Providers Care Registered Nurse Behavioral Health Name Role Phone Cas Galicia MD Primary Care Provider [phone] Cas Galicia MD Unavailable Cas Galicia MD Unavailable Encounter Details DateTypeDepartmentCare Team (Latest Contact Info)Bngpgvllopl68/04/2024Clinisync Result Encounter [facility] Unsolicited Provider, [...] other ways by your partner or ex-partner?Patient jjcergcf83/04/2025Within the last year, have you been kicked, [...] you get together with friends or relatives?Patient bpiepzpy13/04/2025How often do you attend adventist or advent services?Patient ytmmddpm18/04/2025Do you belong to any clubs or organizations such as adventist groups, unions, fraternal or athletic groups, or school groups?No08/08/2024How often do you attend meetings of the clubs or organizations you belong to?Patient lqzeprgc86/04/2025re you , , , , never , or living with a partner?Cdehlms9408/08/2024UDIT-CAnswerDate RecordedQ1: How often do you have a [...] food, housing, medical care, and heating?Somewhat hard08/08/2024[place] of Occupational Health - Occupational Stress QuestionnaireAnswerDate [...] sleep or slept in ashelter (including now)?Patient nzcsuiph56/03/2024 Housing Stability Vital SignAnswerDate RecordedIn the last 12 months, was there a time when you were not able to pay the mortgage or rent on time?No08/08/2024In the past 12 months, how many times have you moved where you were living?0 08/08/2024t any time in the past 12 months, were you homeless or living in a fdc (including now)?No08/08/2024CommentsUnknownSex and Gender InformationValueDate RecordedSex Assigned at BirthNot on fileLegal SexFemale 04/19/2022 6:40 PM EDTGender IdentityNot on fileSexual OrientationNot on file documented as of this encounter Functional Status * AUDIT-C ScoreAnswerDate of IuugjinaiiQwjqhc946/04/2025 11:04 AM Arturo Generic * Q1: How often do you have a drink containing alcohol?AnswerDate of Assessment OrdlmlMtvpz22/04/2025 11:04 AM Arturo, Generic * Q2: How many drinks containing alcohol do you have on a typical day when you are drinking?AnswerDate of AssessmentAuthorPatient does not drink08/08/2024 11:04 AM Arturo, Generic * Q3: How often do you have six or more drinks on one occasion?AnswerDate of JwyvsvdykpRlwigeZxqsh57/04/2025 11:04 AM Isabelle Morris documented as of this encounter Plan of Treatment DateTypeDepartmentCare Team (Latest Contact Info)Batslwbmvrz58/04/2025 8:20 AM EDTOffice Visit [facility] [place] [facility] [address] [place] [address] Jodi Holden, PA [address] [place] [address] [place] [address] 12/07/2025 2:00 PM ESTProcedure Visit [facility] [place] [facility] [address] [place] [address] Rubens Tim, DO [address] [place] [address] documented as of this encounter Procedures Procedure NamePriorityDate/TimeAssociated DiagnosisCommentsUS UOWJFNE2705/10/2023 12:35 PM EDT documented in this encounter Results * US thyroid (05/10/2023 12:35 PM EDT)Anatomical RegionLateralityModalityHead, NeckUltrasoundSpecimen (Source)Anatomical Location / LateralityCollection Method / VolumeCollection TimeReceived Time05/10/2023 12:35 PM EDT Narrative 05/10/2023 12:37 PM EDT [facility] ?[address] ? [place] [address] ? Ultrasound Report ? Signed ? Patient: VIJAYA TRAN ?MR#: [id number] ?? : 1985 ?Acct:[id number] ?? Age/Sex: 37 / F ?ADM Date: 05/10/23 ?? Loc: RAD ? Attending Dr: Reji Best PERSONAL CAREGIVER ? Ordering Physician: Reji Best PERSONAL CAREGIVER ?? Date of Service: 05/10/23 ?? Procedure(s): US thyroid ?? Accession Number(s): [id number] ? cc: Cas Galicia M.D.; Reji Best PERSONAL CAREGIVER ? [facility] ? [address] ? [place] [address] ? Patient Name: ?? VIJAYA TRAN ? MRN: [id number] ? date: 1985 ?Sex: F ?? Assigned Patient Location: RAD ?? Current Patient Location: RAD ?? Accession/Order Number: [id number] ?? Exam Date: 05/10/2023 ??09:04 ?Report Date: 05/10/2023 ??12:35 ? At the request of: ?? REJI BEST ? Procedure: ??US thyroid ? EXAMINATION: US thyroid ? 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 COMPARISON: No relevant comparison available. ? FINDINGS: ?? RIGHT LOBE: Small lobe with slightly heterogeneous echotexture. No increased ?? vascularity or suspicious nodules. ?? Lobe size: 3.1 x 1.1 x 0.5 cm ? LEFT LOBE: Small lobe with slightly heterogeneous echotexture. No increased ?? vascularity or suspicious nodules. ?? Lobe size: 3.0 x 0.9 x 0.9 cm ? ISTHMUS: Normal thickness. Slightly heterogeneous echotexture. ?? Thickness: 2 mm ? US/US thyroid ?? IMPRESSION: ? 1. Small thyroid gland similar to prior study. No hypervascularity or ?? suspicious nodules. ? Electronically authenticated by: JONAS ??JULIO ?? Date: 05/10/2023 ??12:35 ? Dictated By: ?Jonas Humphrey M.D. ? Signed By: ?05/10/23 1237 ? DD/ 1235 ? TD/TT: ? Qualitative Field Coordinator: Procedure Note Radiology, Radiologist, MD - 05/10/2023 The [place] [id number] Ultrasound Report Signed Patient: VIJAYA TRAN SMR#: [id number] : 1985Acct:[id number] Age/Sex: 37 / FADM Date: 05/10/23 Loc: RAD Attending Dr: Reji Best NP Ordering Physician: Reji eBst NP Date of Service: 05/10/23 Procedure(s): US thyroid Accession Number(s): [id number] cc: Cas Galicia M.D.; Reji Best NP The [address] [address] Patient Name: VIJAYA TRAN MRN: [id number] date: 1985 Sex: F Assigned Patient Location: RAD Current Patient Location: RAD Accession/Order Number: [id number] Exam Date: 05/10/2023 09:04 Report Date: 05/10/2023 [...] M.D. Signed By:05/10/23 1237 DD/ 1235 TD/TT: Qualitative Field Coordinator: Authorizing ProviderResult TypeResult StatusGeneric External Data ProviderIMG US PROCEDURESFinal Result documented in this encounter Visit Diagnoses Not on filedocumented in this encounter Care Teams Team MemberRelationshipSpecialtyStart DateEnd Date Cas Galicia MD [address] [place] [phone] PCP - GeneralFamily Medicine04/09/23 Cas Galicia MD [address] [place] [phone] PCP - [employer] Cas Galicia MD [address] [place] [phone] PCP - [employer] Kxydszfvzk75/documented as of this encounter
--- OUTSIDE RECORDS SUMMARY | 2024-12-10 09:33 | XMS_ITS | Encounter Summary ---
Author Organization [facility] Address [address] [place] [address] Care Team Providers Care Panel Monitor Name Role Phone Cas Galicia MD Primary Care Provider Cas Galicia MD Unavailable Cas Galicia MD Unavailable Encounter Details DateTypeDepartmentCare Team (Latest Contact Info)Mpokgzjmecj79/26/2024Clinisync Result Encounter [facility] Unsolicited Provider, [...] other ways by your partner or ex-partner?Patient eumxfhfd35/04/2025Within the last year, have you been kicked, [...] you get together with friends or relatives?Patient ritxvyjj42/04/2025How often do you attend sikhism or spiritism services?Patient /04/2025Do you belong to any clubs or organizations such as sikhism groups, unions, fraternal or athletic groups, or school groups?No08/08/2024How often do you attend meetings of the clubs or organizations you belong to?Patient eyughgeb59/04/2025re you , , , , never , or living with a partner?Bjjfkih4808/08/2024UDIT-CAnswerDate RecordedQ1: How often do you have a [...] food, housing, medical care, and heating?Somewhat hard08/08/2024[facility] - Occupational Stress QuestionnaireAnswerDate [...] pay the mortgage or rent on time?Patient wyvhggnx69/03/2024In the last 12 months, how many places have you lived?1 04/08/2023In the last 12 months, was there a time when you did not have a steady place to sleep or slept in ashelter (including now)?Patient lvsfuhnd83/03/2024 Housing Stability Vital SignAnswerDate RecordedIn the last 12 months, was there a time when you were not able to pay the mortgage or rent on time?No08/08/2024In the past 12 months, how many times have you moved where you were living?0 08/08/2024t any time in the past 12 months, were you homeless or living in a retirement (including now)?No08/08/2024CommentsUnknownSex and Gender InformationValueDate RecordedSex Assigned at BirthNot on fileLegal SexFemale 04/19/2022 6:40 PM EDTGender IdentityNot on fileSexual OrientationNot on file documented as of this encounter Functional Status * AUDIT-C ScoreAnswerDate of JjhyatmmmjAnhnvb131/04/2025 11:04 AM Arturo Generic * Q1: How often do you have a drink containing alcohol?AnswerDate of Assessment EjyfydPupwx93/04/2025 11:04 AM Arturo, Generic * Q2: How many drinks containing alcohol do you have on a typical day when you are drinking?AnswerDate of AssessmentAuthorPatient does not drink08/08/2024 11:04 AM Arturo, Generic * Q3: How often do you have six or more drinks on one occasion?AnswerDate of PmjwphleehMkwqrgAnptk28/04/2025 11:04 AM Isabelle Morris documented as of this encounter Plan of Treatment DateTypeDepartmentCare Team (Latest Contact Info)Onouuovgboz87/04/2025 8:20 AM EDTOffice Visit [facility] [address] [place] [address] Jodi Holden, PA [address] [place] [address] 12/07/2025 2:00 PM ESTProcedure Visit [facility] [address] [facility] [place] [phone] Rubens Tim, DO [address] [facility] [place] [address] documented as of this encounter Procedures Procedure NamePriorityDate/TimeAssociated DiagnosisCommentsMM TOMOSYNTHESIS DIAGNOSTIC BI08/31/2023 1:39 PM EDT documented in this encounter Results * MM TOMOSYNTHESIS DIAGNOSTIC BI (08/31/2023 1:39 PM EDT)Anatomical Region LateralityModalityOtherSpecimen (Source)Anatomical Location / Laterality Collection Method / VolumeCollection TimeReceived Time08/31/2023 1:39 PM EDT Narrative 08/31/2023 1:40 PM EDT [facility] ?[address] ? [place] [address] ? Mammography Report ? Signed ? Patient: MARC,VIJAYA S ?MR#: [id number] ?? : 1985 ?Acct:[id number] ?? Age/Sex: 37 / F ?ADM Date: 08/31/23 ?? Loc: MAMMO ? Attending Dr: Rubens Horner.O. ? Ordering Physician: Rubens Tim D.O. ?Results: ? Date of Service: 08/30/ ?Follow Up: ? Procedure(s): MM tomosynthesis diagnostic BI ?? Accession Number(s): [id number] ? cc: Rubens Tim D.O.; Cas Galicia M.D. ? Patient Name: ? VIJAYA MARC ? MR#: [id number] ? : 1985 ? Exam Date: 08/31/2023 [...] at age ??48. ? LOCATION: ? [facility] ? BREAST COMPOSITION: ? There are [...] 1340 ? DD/ 1339 ? TD/TT: ? Litigation Assistant: Procedure Note Radiology, Radiologist, MD - 08/31/2023 [place] [address] Mammography Report Signed Patient: VIJAYA TRAN SMR#: [id number] : 1985Acct:[id number] Age/Sex: 37 / FADM Date: 08/31/23 Loc: MAMMO Attending Dr: Rubens Tim D.O. Ordering Physician: Rubens Tim D.O.Results: Date of Service: 08/31/23Follow Up: Procedure(s): MM tomosynthesis diagnostic BI Accession Number(s): [id number] cc: Rubens Tim D.O.; Cas Galicia M.D. Patient Name: VIJAYA TRAN MR#: [id number] : 1985 Exam Date: 08/31/2023 Ordering Doctor: [...] cervical cancer at age 48. LOCATION: [facility] BREAST COMPOSITION: There are scattered areas [...] M.D. Signed By:08/31/23 1340 DD/ 1339 TD/TT: Litigation Assistant: Authorizing ProviderResult TypeResult StatusGeneric External Data Provider CLINIS[facility]NC IMAGINGFinal Result documented in this encounter Visit Diagnoses Not on filedocumented in this encounter Care Teams Team MemberRelationshipSpecialtyStart DateEnd Date Cas Galicia MD [address] [place] [phone] PCP - GeneralFamily Medicine04/09/23 Cas Galicia MD [address] [place] [phone] PCP - [employer] Cas Galicia MD [address] [place] [phone] PCP - [place] Ohrbeibpjg23/1/244documented as of this encounter
--- OUTSIDE RECORDS SUMMARY | 2024-12-10 09:33 | XMS_ITS | Encounter Summary ---
Author Organization [facility] Address [address] [place] [address] Care Team Providers Care Window Glazier Helper Name Role Phone Cas Galicia MD Primary Care Provider [phone] Encounter Details DateTypeDepartmentCare Team (Latest Contact Info)Unhdyqrdxiq78/22/2025Travel Social History Tobacco UseTypesPacks/DayYears UsedDateSmoking Tobacco: NeverSmokeless [...] other ways by your partner or ex-partner?Patient qqklwibu95/04/2025Within the last year, have you been kicked, [...] you get together with friends or relatives?Patient ytqpirhb53/04/2025How often do you attend druze or holiness services?Patient aeubqwmd42/04/2025Do you belong to any clubs or organizations such as druze groups, unions, fraternal or athletic groups, or school groups?No08/08/2024How often do you attend meetings of the clubs or organizations you belong to?Patient uatpdval71/04/2025re you , , , , never , or living with a partner?Pldcsne1808/08/2024UDIT-CAnswerDate RecordedQ1: How often do you have a [...] like food, housing, medical care, and heating?Somewhat hard08/08/2024[facility] - Occupational Stress QuestionnaireAnswerDate [...] pay the mortgage or rent on time?Patient kudqktix91/03/2024In the last 12 months, how many places have you lived?1 04/08/2023In the last 12 months, was there a time when you did not have a steady place to sleep or slept in ashelter (including now)?Patient oyqfeplw83/03/2024 Housing Stability Vital SignAnswerDate RecordedIn the last 12 months, was there a time when you were not able to pay the mortgage or rent on time?No08/08/2024In the past 12 months, how many times have you moved where you were living?0 08/08/2024t any time in the past 12 months, were you homeless or living in a assisted (including now)?No08/08/2024CommentsNoSex and Gender Information ValueDate RecordedSex Assigned at BirthNot on fileLegal TqcItffaj48/15/2023 6:40 PM EDTGender IdentityNot on fileSexual OrientationNot on filedocumented as of this encounter Plan of Treatment DateTypeDepartmentCare Team (Latest Contact Info)Qzecxvyhuik40/03/2026 8:20 AM EDTOffice Visit [facility] [address] [place] [phone] Jodi Holden, PONCE [address] [place] [address] 12/07/2025 2:00 PM ESTProcedure Visit [facility] [address] [facility] [place] [address] Rubens Tim DO [address] [facility] [place] [address] documented as of this encounter Visit Diagnoses Not on filedocumented in this encounter Care Teams Team MemberRelationshipSpecialtyStart DateEnd Date Cas Galicia MD [address] [place] [address] PCP - GeneralFamily Medicine04/09/23documented as of this encounter
--- OUTSIDE RECORDS SUMMARY | 2024-12-10 09:33 | XMS_ITS | Encounter Summary ---
Author Organization [facility] Address [address] [facility] [place] [address] Care Team Providers Care Rotary Drill Rig Operator Name Role Phone Cas Galicia MD Primary Care Provider [phone] Reason for Visit * ReasonOnset DateCommentsMed Change RequestError (VOID this visit)12/01/2024 Encounter Details DateTypeDepartmentCare Team (Latest Contact Info)Scdidsjybqs29/27/2025Refill [facility] [address] [place] [address] Priscila Gonzalez, CHILD WELFARE COUNSELOR [address] [place] [address] Postmenopausal HRT (hormone replacement therapy) Social [...] other ways by your partner or ex-partner?Patient pgoauwct71/04/2025Within the last year, have you been kicked, [...] you get together with friends or relatives?Patient papzcyij46/04/2025How often do you attend denominational or adventist services?Patient xcxamtzf04/04/2025Do you belong to any clubs or organizations such as denominational groups, unions, [employer] or athletic groups, or school groups?No08/08/2024How often do you attend meetings of the clubs or organizations you belong to?Patient bqcsqgex28/04/2025re you , , , , never , or living with a partner?Dpiiecd3008/08/2024UDIT-CAnswerDate RecordedQ1: How often do you have a [...] like food, housing, medical care, and heating?Somewhat hard08/08/2024[facility] - Occupational Stress QuestionnaireAnswerDate [...] pay the mortgage or rent on time?Patient ozyqiefp20/03/2024In the last 12 months, how many places [...] or living in a senior living (including now)?No08/08/2024CommentsNoSex and Gender Information ValueDate RecordedSex Assigned at BirthNot on fileLegal DhoAuyasu78/15/2023 6:40 PM EDTGender IdentityNot on fileSexual OrientationNot on filedocumented as of this encounter Miscellaneous Notes * Telephone Encounter - Jessica Nunez MA - 12/05/2024 10:53 AM EDT void documented in this encounter Plan of Treatment DateTypeDepartmentCare Team (Latest Contact Info)Mqrihcibzsc30/03/2026 8:20 AM EDTOffice Visit [facility] [address] [place] [phone] Jodi Holden, PA [address] [place] [address] 12/07/2025 2:00 PM ESTProcedure Visit [facility] [address] [place] [address] Rubens Tim DO [address] [facility] [address] [place], [place] [address] documented as of this encounter Visit Diagnoses Diagnosis Postmenopausal HRT (hormone replacement therapy) Need for prophylactic hormone replacement therapy (postmenopausal) documented in this encounter Care Teams Team MemberRelationshipSpecialtyStart DateEnd Date Cas Galicia MD [address] [place] [address] PCP - GeneralFamily Medicine04/09/23documented as of this encounter
--- OUTSIDE RECORDS SUMMARY | 2024-12-10 09:33 | XMS_ITS | Clinical Summary ---
Author Organization [facility] Address [address] [place] [address] Care Team Providers Care Yeast Pumper Name Role Phone Cas Dowell MD Primary Care Provider [phone] Allergies Active AllergyReactionsCriticalityNoted DateCommentsAspirinAngioedema,Rash, IcsaipzBhd39/30/2012 Other reaction(s): Angioedema, Unknown, Unknown Htcwssug52/02/0242Ykiugtneil93/02/6196Kltinspfykd27/02/2023alcanezumab-Gnlm 07/07/2022ErythromycinShortness of breath,MufnchpjKsvj24/30/2012 Other Reaction(s): Unknown Fish LylkiskJaaysFkwpiq16/20/9497MsglillvtcvjUdhitdei14/16/2015IbuprofenRash, TsnkqxsThetuw01/30/2012 Due to clotting disorder-Aleve Other reaction(s): Unknown, Unknown Due to clotting disorder-Aleve Due to clotting disorder-Aleve Other Reaction(s): Unknown Iodinated Contrast VstwqFqixvfjhrdpYedn35/19/2015 Other reaction(s): Unknown Does not tolerate with pre-medication Other reaction(s): Unknown Does not tolerate with pre-medication Tolerated with pre-medication on 09/22/21 Other reaction(s): Unknown Does not tolerate with pre-medication Tolerated with pre-medication on 09/22/21 Other reaction(s): Unknown Does not tolerate with pre-medication Other Reaction(s): Unknown LatexItching,Rash,Swelling,HalcxrgIsv35/30/2012 Skin cracks and bleeds Other reaction(s): Unknown Skin cracks and bleeds Skin cracks and bleeds Other Reaction(s): Unknown Lavender CnpWbochyetyrvGhlf94/09/7601VtgelxgpvuzvYstoFsj16/07/2021MentholHives 02/27/20226603DymrjaqoGwtufdoohp25/02/2021 Other reaction(s): Angioedema Norethindrone-Eth Bmahtonjb62/30/2012 Chest hurt and legs turned black -- saw Dr. Jorge London Penicillin G Otjptvzqgt24/17/2024 Other Reaction(s): Unknown PenicillinsItching,HdqxHzb9509/04/2011 Other reaction(s): Unknown, Unknown, Unknown Povidone-LyhcqzCgtyEyv23/19/2023RofecoxibRash,QvhpbiiOww03/30/2012 Other reaction(s): Unknown Shellfish Protein-Containing Drug ProductsHives,EqrlJew4301/08/2022imethicone 07/07/2022Sulfa AntibioticsShortness of breath,VcbjancoWalz22/14/2016 Other reaction(s): Unknown Other reaction(s): Unknown Other reaction(s): Unknown Liwiazuubdqqsbdl51/17/2024 Other Reaction(s): Unknown Sulfamethoxazole-FigcpjbbgxuhDciwbhuAten12/19/2014 Cant breathe Other reaction(s): Other Cant breathe Bxhdchawhu39/06/2025ValacyclovirAnaphylaxis,Shortness of lgyzwsGspu68/31/2022 Laaddhvnr28/02/8782RiwxnczuAmmamnvQwma65/19/2023 Uncontrolable limb movements Muscle spasms Medications MedicationSigDispense [...] MCG) BY MOUTH DAILY 30 capsule 5Active Azelastine HCl 137 MCG/SPRAY solution Discontinued DHEA 10 MG capsule Take 5 mg by mouth12/01/2024Discontinued(Reorder) DHEA 10 MG capsule Indications:Postmenopausal HRT (hormone replacement therapy)Take 5 mg by mouth Daily 1 capsule Discontinued Prasterone, DHEA, (DHEA Micronized) 10 MG tablet Indications:Postmenopausal HRT (hormone replacement therapy)Take 5 mg by mouth Daily 100 tablet Discontinued Prasterone, DHEA, (DHEA Micronized) 10 MG tablet Indications:Postmenopausal HRT (hormone replacement therapy)Take 5 mg by mouth Daily 30 tablet Discontinued(Therapy completed) Active Problems ProblemNoted DateDiagnosed DateRight wrist pain09/25/2024 [...] 10 years. Advised not to smoke. Hormone gzunnavig96/26/2025PCOS (polycystic ovarian syndrome)04/30/2024lass 2 severe obesity due to excess calories with serious comorbidity and body mass index (BMI) of37.0 to 37.9 in adult02/11/2024 Assessment & Plan (02/11/2024 10:23 AM EST): Weight loss indicated Allergic snxpeuqd71/21/2024 Assessment & Plan (09/26/2023 10:10 AM EDT): Recent reaction and improved with treatment. Reactions getting worse and refer to personal financial counselor. Edema of both legs04/09/2023 Assessment & Plan [...] stable and elevate legs PRN. Dyspareunia in ylezgq3701/12/2023ross /08/2023Ovarian cyst01/12/2023 Right inguinal tovjkc5201/12/2023Urethral jpensbybo78/08/2023Vitamin D deficiency 01/12/2023Qualitative platelet hmskdkna26/27/9425Ugnulybgqxen38/15/2022Diffuse pain08/23/2021ecreased activity ebmmhusje38/19/2022llergic reaction to contrast dye07/25/2021dverse food moutzhxp54/20/2022Moderate persistent asthma without gntsopqvhlvo35/20/2022 Assessment & Plan (02/11/2024 10:37 AM EST): Breathing stable with symbicort and continue. Tachycardia from albuterol and try xopenex PRN. Assessment & Plan (10/10/2023 9:42 AM EDT): Breathing stable with symbicort and continue. Use albuterol PRN. Assessment & Plan (04/09/2023 9:29 AM EST): Breathing stable with symbicort and continue. Use albuterol PRN. Screening for endocrine bhsavkjb39/10/2022ubjective muscle cvfrfgik10/19/2022 Transient zehkmaun45/19/7378Vczkfkg21/26/1146Srisgfkrmgo05/26/2022Memory kfogyehpemtv34/26/2022hronic owez-KXOHK-86 eapfxafm79/26/2022 Assessment & Plan (02/11/2024 10:35 AM EST): No change in symptoms and monitor. Assessment & Plan (10/10/2023 9:42 AM EDT): No change in symptoms and monitor. Assessment & Plan (04/09/2023 9:29 AM EST): No change in symptoms and monitor. Trapezius muscle spasm03/02/2021Word finding msaggjzpjt32/26/2022spirin allergy 02/10/2021utonomic ekpmhrygibj98/06/2022 Assessment & Plan (02/11/2024 10:35 AM EST): Continued symptoms and continue medication. Follow with cardiology as scheduled. Assessment & Plan (01/16/2023 11:50 AM EST): Continued symptoms and continue medication. Follow with cardiology as scheduled. History of muxjuudkbdvk41/06/2022TSD (post-traumatic stress disorder)12/24/2020 Symptomatic bjzzpkqozcp25/19/2021MDD (major depressive disorder), recurrent episode, mild12/24/2020 Assessment & Plan (02/11/2024 10:36 AM EST): Symptoms stable and follow with psychiatry. Type 2 diabetes mellitus with hyperglycemia, without long-term current use of wqvhxpm2012/24/2020 Assessment & Plan (08/11/2024 10:05 AM EDT): [...] without aura and without status migrainosus, not qaedpdbeexo97/19/2021 KATELIN (obstructive sleep apnea)1Chronic mwqtfzwpvviwpt07/16/2016 Assessment & Plan (09/25/2024 4:40 PM EDT): [...] stable with medication and continue. Gastroesophageal reflux kmbpzvz2312/22/2015 Assessment & Plan (02/11/2024 10:23 AM EST): No symptoms Hearing loss12/22/20154112Sdfjlbhclnaquj08/16/2016Irritable bowel rbmfwbvu56/16/2016 Primary vvcnlrytxdzyzf99/16/2016Arachnoid cyst of pituitary gland04/07/2015 Bleeding afvaiece13/19/2015 Resolved Problems ProblemNoted DateDiagnosed DateResolved DateCOVID-/08/2024 Assessment & Plan (02/27/2024 8:57 AM EST): Recent infection and continued cough and SOB. Repeat steroids and use albuterol every 4 hours x 48 then PRN. Use OTC PRN for symptoms. Acute non-recurrent opyezseplmzw47/04/202409/05/2023 Assessment & Plan (04/09/2023 9:30 AM EST): Take antibiotics for 7 days. Use OTC PRN cough or congestion. Use Motrin or Tylenol as needed for fever, aches, or pains. Increase fluid intake and rest. Should improve over next 5-7 days and if no better or worse call for re-evaluation. Abnormal urine tshhknyn41Stress etejknkcpryy18/08/2023 04/09/2023Syncope and pjwmiuvo61 Overview (01/12/2023): Added automatically from request for surgery [id number] Adenovirus jtmeteuyx57RSV (respiratory syncytial virus infection)/01/2023Exacerbation of Orthostatic ahshvpbeqkj94/19/202203/rug ksendgtj35 Blood pressure rfdrmybtojb89Orthostatic lightheadedness Hypersomnia with sleep apnea/hest pain /05/2023 Assessment & Plan (01/16/2023 11:50 AM EST): Continued pain but unclear cause. Follow with cardiology. Acute stress eqaigotv48sthma1Generalized zyltwcfu13bdominal pain, acute, right lower quadrant Encounters DateTypeDepartmentCare CiiyIpzqdkxqabn22/31/2025Telephone [facility] [address] [place] [address] Jessica Nunez MA 12/01/2024 10:40 AM EDTOffice Visit [facility] [address] [place] [phone] Rubens Tim DO Postmenopausal HRT (hormone replacement therapy) (Primary Dx); Well woman exam with routine gynecological exam; Encounter for screening mammogram for malignant neoplasm of breast; Hormone /27/2025linisync Result Encounter [facility] External Department Unsolicited Priscila Gonzalez NP 12/01/2024Refill [facility] [address] [place] [phone] Priscila Gonzalez NP Postmenopausal HRT (hormone replacement therapy)12/01/2024amboo flowsheet [facility] [address] [place] [address] Rubens Tim DO 11/26/20247223Pfnxaf47/26/2025linisync Result Encounter [facility]OM[facility] External Department Unsolicited Provider, Generic External Data 09/29/2024Results Follow-Up [facility] [place] [facility] [address] [facility] [address] Cas Dowell MD XR elbow 1 or 2 views right09/29/2024linisync Result Encounter [facility] External Department Unsolicited Cas Dowell MD 09/29/2024linisync Result Encounter NOM[facility] External Department Unsolicited Cas Dowell MD 5Clinisync Result Encounter [facility]OM[facility] External Department Unsolicited Cas Dowell MD 09/29/2024Orders Only [facility] [address] [place] [address] Cas Dowell MD 09/25/2024 3:45 PM EDTOffice Visit [facility] [address] [place] [address] Cas Dowell MD Chronic rhinosinusitis (Primary Dx); Right wrist pain; Right forearm pain5Abstract [facility] [address] [place] [address] Cas Dowell MD 5Bamboo flowsheet [facility] [address] [place] [phone] Cas Dowell MD 09/16/2024Refill [facility] [address] [place] [address] Cas Dowell MD Vitamin D deficiencyfrom Last 3 Months Immunizations ImmunizationAdministration DatesNext DueInfluenza, Z5H3-296756/15/2020Influenza, Wnxjyhajwfx44/15/2020,11/06/2019Influenza, injectable, quadrivalent, preservative free10/27/2019 Family History * [...] other ways by your partner or ex-partner?Patient laehvjnz24/04/2025Within the last year, have you been kicked, [...] you get together with friends or relatives?Patient qegvvwxp23/04/2025How often do you attend caodaism or restorationist services?Patient xjkzwwem90/04/2025Do you belong to any clubs or organizations such as caodaism groups, unions, fraternal or athletic groups, or school groups?No08/08/2024How often do you attend meetings of the clubs or organizations you belong to?Patient foumssfw37/04/2025re you , , , , never , or living with a partner?Jtohloq1108/08/2024UDIT-CAnswerDate RecordedQ1: How often do you have a [...] housing, medical care, and heating?Somewhat hard08/08/2024[facility] - Occupational Stress QuestionnaireAnswerDate [...] sleep or slept in ashelter (including now)?Patient jzondfkt79/03/2024 Housing Stability Vital SignAnswerDate RecordedIn the last 12 months, was there a time when you were not able to pay the mortgage or rent on time?No07/04/2025In the past 12 months, how many times have you moved where you were living?0 08/08/2024t any time in the past 12 months, were you homeless or living in a jail (including now)?No08/08/2024CommentsNoSex and Gender Information ValueDate RecordedSex Assigned at BirthNot on fileLegal NzwRawfnl70/15/2023 6:40 PM EDTGender IdentityNot on fileSexual OrientationNot on file Last Filed Vital Signs Vital SignReadingTime TakenCommentsBlood Ghvdbuyu550/8612/01/2024 11:10 AM EDT Zqxnk523509/25/2024 3:50 PM OYFOlzthzvchai26.4 ??C (97.5 ??F)09/25/2024 3:50 PM EDTRespiratory Bkeu416809/25/2024 3:50 PM EDTOxygen Aelpajmvho61%09/25/2024 3:50 PM EDTInhaled Oxygen Concentration--Xsbsob813 kg (228 lb 8 oz)12/01/2024 11:10 AM WJTPttwpy292.6 cm (5' 4 )09/25/2024 3:50 PM EDTBody Mass Index39.22009/25/2024 3:50 PM EDT Plan of Treatment DateTypeDepartmentCare Team (Latest Contact Info)Wutadhbqxmt59/03/2026 8:20 AM EDTOffice Visit [facility] [address] [place] [phone] Jodi Holden, PONCE [address] [place], [place] [phone] 12/07/2025 2:00 PM ESTProcedure Visit [facility] [address] [facility] [address] Rubens Tim DO [address] [facility] [place] [address] Procedures Procedure NamePriorityDate/TimeAssociated DiagnosisCommentsALL VVZYNNTITNWPLPFMGLYOZWZizriea69/27/2025 12:04 PM EDT SRMCOH TESTOSTERONE FREE/TOT YZKWCKMRbymhpe59/27/2025 12:04 PM EDT ALL ESTRONE(E1)Hcewuzl9612/01/2024 12:04 PM EDT ALL KKPZADRYSDEMKpjasvk00/27/2025 12:04 PM EDT ALL DHEA VJUEDFWAvpxxol66/27/2025 12:04 PM EDT IGP,APTIMA HPV,AGE AWAVBfsyhhp34/27/2025 11:01 AM EDT [facility] COMP METAB 2000 PNL UZPTMLlajvry81/26/2025 8:42 AM EDT [facility] CBC W AUTO DIFF MWRWkhyuay05/26/2025 8:42 AM EDT XR FOREARM 2 VIEWS KSDPHNaxxsbt44/25/2025 2:01 PM EDTXR WRIST 2 VIEWS RIGHT Yfjlmfq3409/29/2024 2:00 PM EDTXR ELBOW 3+ VIEWS DCXFIMmiufyq84/25/2025 1:59 PM EDTXR ELBOW 1-2 VIEWS RIGHT09/29/2024 1:44 PM EDT XR FOREARM 2 VIEWS RIGHT09/29/2024 1:43 PM EDT XR WRIST 1-2 VIEWS RIGHT09/29/2024 1:43 PM EDT from Last 3 Months Results * SRMCOH TESTOSTERONE FREE/TOT EQUILIB (12/01/2024 12:04 PM EDT)ComponentValue Ref RangeTest MethodAnalysis TimePerformed AtPathologist SignatureTESTOSTERONE 118 - 60 ng/dLTBHFREE TESTOSTERONE(DIRECT)1.00.0 - 4.2 pg/mLTBHComment: Performed at: ?? - [facility] [address] [place] [address], [place], [place] ??[id number] Life Science Taxonomist: Zacarias Sage PhD, Phone: ??[phone] Performed at: ??BN - [facility] [address] ??[id number] Life Science Taxonomist: Guerrero Bojorquez MD, Phone: ??[phone] Specimen (Source)Anatomical Location / LateralityCollection Method / Volume Collection TimeReceived Time12/01/2024 12:04 PM EDT1 12:06 PM EDT Narrative [facility] - 12/04/2024 2:07 AM EDT Authorizing ProviderResult TypeResult StatusKristina Carlos NPCLINISYNCFinal ResultPerforming OrganizationAddressCity/State/ZIP CodePhone Number [facility] * ALL PROGESTERONE (12/01/2024 12:04 PM EDT)ComponentValueRef RangeTest Method Analysis TimePerformed AtPathologist SignaturePROGESTERONE0.2. ng/mLTBH Comment: ? Follicular phase ? 0.1 - ?? 0.9 ? Luteal phase ? 1.8 - ??23.9 ? Ovulation phase ?0.1 - ??12.0 ?First trimester ?11.0 - ??44.3 ?Second trimester ?? 25.4 - ??83.3 ?Third trimester ?58.7 - 214.0 ? Postmenopausal ? 0.0 - ?? 0.1 Performed at: ??CB - [facility] [address] [place], [place] ??[id number] Life Science Taxonomist: Zacarias Sage PhD, Phone: ??[phone] Specimen (Source)Anatomical Location / LateralityCollection Method / Volume Collection TimeReceived Time12/01/2024 12:04 PM EDT1 12:06 PM EDT Narrative [facility] - 12/04/2024 2:07 AM EDT Authorizing ProviderResult TypeResult StatusPriscila Gonzalez NPCLINISYNCFinal ResultPerforming OrganizationAddressty/State/ZIP CodePhone Number CLINISYMD TB * ALL ESTRONE(E1) (12/01/2024 12:04 PM EDT)ComponentValueRef RangeTest Method Analysis TimePerformed AtPathologist XzcdacfsfMBDEFTBBS44.7. pg/mLTBHComment: ? Adult Female ? Range ?Follicular phase ? 12.5 - 166.0 ?Ovulation phase ?85.8 - 498.0 ?Luteal phase ? 43.8 - 211.0 Postmenopausal <6.0 - 54.7 ? 1st trimester 215.0 - >4300.0 [place] ECLIA methodology Specimen (Source)Anatomical Location / LateralityCollection Method / Volume Collection TimeReceived Time12/01/2024 12:04 PM EDT1 12:06 PM EDT Narrative [facility]IN[facility]NC - 12/04/2024 2:07 AM EDT Authorizing ProviderResult TypeResult StatusKrjose Gonzalez NPCLINISYNCFinal ResultPerforming OrganizationAddressA[facility]/State/[facility] CodePhone Number [facility] * ALL DHEA SULFATE (12/01/2024 12:04 PM EDT)ComponentValueRef RangeTest Method Analysis TimePerformed AtPathologist SignatureDHEA-BQUCQNK497.057.3 - 279.2 ug/dLTBHSpecimen (Source)Anatomical Location / LateralityCollection Method / VolumeCollection TimeReceived Time12/01/2024 12:04 PM EDT1 12:06 PM EDT Narrative [facility]INISYNC - 12/04/2024 2:07 AM EDT Authorizing ProviderResult TypeResult StatusPriscila Gonzalez NPCLINISYNCFinal ResultPerforming OrganizationAddressty/[facility] CodePhone Number [facility] * ALL DEHYDROEPIANDROSTERONE (12/01/2024 12:04 PM EDT)ComponentValueRef Range Test MethodAnalysis TimePerformed AtPathologist SignatureDHEA, FTWYU94997 - 701 ng/dLTBHComment: This test was developed and its performance characteristics determined by [facility]. It has not been cleared or approved by the Food and Drug Administration. Performed at: ?? - [facility] ??[id number] Life Science Taxonomist: Guerrero Bojorquez MD, Phone: ??[phone] Specimen (Source)Anatomical Location / LateralityCollection Method / Volume Collection TimeReceived Time12/01/2024 12:04 PM EDT1 12:06 PM EDT Narrative CLINISYNC - 12/05/2024 10:16 PM EDT Authorizing ProviderResult TypeResult StatusPriscila Taly NPCLINISYNCFinal ResultPerforming OrganizationAddressty/[facility] CodePhone Number [facility] * IGP,APTIMA HPV,AGE GDLN (12/01/2024 11:01 AM EDT)ComponentValueRef RangeTest MethodAnalysis TimePerformed AtPathologist SignatureAGE GDLN ACOG TESTINGNote. TBHComment: ?? TESTS ? RESULT ??FLAG ??UNITS ?REF RANGE ??LAB ?? Clinician Provided Cytology Information ?? Source.............Vagina ?? No. of containers..01 ThinPrep Vial Age Algo ACOG Ashia... ??30-65 ? 01 ?FLAG LEGEND: ?L-Low Normal,H-High Normal,LL-Alert Low,HH-Alert High <-Panic Low,>-Panic High,A-Abnormal,AA-Critical Abnormal Performed at: 01 =G ?[facility] ?? [address] [place] ??[phone] ?? Maryjo Saez MD, IGP, APTIMA HPV, RFX 16/18,45Note.TBHComment: ?? TESTS ? RESULT ??FLAG ??UNITS ?REF RANGE ??LAB DIAGNOSIS: ?02 ?? NEGATIVE FOR INTRAEPITHELIAL LESION OR MALIGNANCY. Specimen adequacy: ?02 ?? Satisfactory for evaluation. No endocervical component is identified. Performed by: ? 02 ?? Araseli White, Supervisor [employer] ([employer]) . ? 02 Note: ? Note ?02 ?? The Pap smear is a screening test designed to aid in the ?? detection of premalignant and malignant conditions of the ?? uterine cervix. ??It is not a diagnostic procedure and ?? should not be used as the sole means of detecting cervical ?? cancer. ??Both false-positive and false-negative reports do ?? occur. Test Methodology: ? Note ?02 ?? This liquid based ThinPrep(R) pap test was interpreted ?? using the Patronpath(R) Genius(TM) Cervical Algorithm whole ?? slide imaging system. HPV Genotype Reflex ?? Note ?02 ?? Criteria not met, HPV Genotype not performed. ?FLAG LEGEND: ?L-Low Normal,H-High Normal,LL-Alert Low,HH-Alert High <-Panic Low,>-Panic High,A-Abnormal,AA-Critical Abnormal Performed at: 02 WB ?[facility] ?? [address] [place], [place] ??[phone] ?? Maryjo Saez MD, HPV APTIMANegativeNegativeTBHComment: This nucleic acid amplification test detects fourteen high- risk HPV types (16,18,31,33,35,39,45,51,52,56,58,59,66,68) without differentiation. Performed at: ??=G - [facility] ??[id number] Life Science Taxonomist: Maryjo Saez MD, Phone: ??[phone] Performed at: ?? - [facility] [address] ??[id number] Life Science Taxonomist: Maryjo Saez MD, Phone: ??[phone] Specimen (Source)Anatomical Location / LateralityCollection Method / Volume Collection TimeReceived Time12/01/2024 11:01 AM EDT1 7:54 PM EDT Narrative CLINISYNC - 12/05/2024 1:08 PM EDT SPATULA-ALONE VAGINA Authorizing ProviderResult TypeResult StatusPriscila Gonzalez NPLAB BLOOD ORDERABLESFinal ResultPerforming OrganizationAddressCity/State/ZIP CodePhone Number [facility]INIS[facility]NC [facility] * (ABNORMAL) [facility] CBC W AUTO DIFF [...] RBC-RTO11.911.5 - 15.0 %CCFCCF PLATELET # BLD [id number] - 400 k/uLCCFCCF PMV BLD AUTO9.89.0 - [...] EDT Specimen Type: BLOOD SPECIMEN Ordering Facility: [facility] ?Address: [address] [place] [address] Original Ordering Provider: FUENTES AMARAL Authorizing ProviderResult TypeResult StatusGeneric External Data Provider CLINISYNCFinal ResultPerforming OrganizationAddressCity/State/ZIP CodePhone Number CLINIS[facility]NC [facility] [address] [place] [address] * (ABNORMAL) [facility] COMP METAB 2000 PNL SERPL (09/30/2024 8:42 AM EDT)Component ValueRef RangeTest MethodAnalysis TimePerformed AtPathologist SignatureCCF PROT SERPL-MCNC6.76.3 - 8.0 g/dLCCFCCF ALBUMIN SERPL-MCNC4.53.9 - 4.9 g/dLCCF [facility]CF CALCIUM SERPL-MCNC9.78.5 - 10.2 mg/dLCCFCCF BILIRUB SERPL-MCNC0.30.2 - 1.3 mg/dLCCFCCF ALP SERPL-DNCM5033 - 123 U/LCCFCCF AST SERPL-CCNC10(L)13 - 35 U/L CCFCCF ALT SERPL-CHJI619 - 38 U/LCCFCCF GLUCOSE SERPL-UUKS202(H)74 - 99 mg/dL CCFComment: The [place] Diabetes Association (ADA) provides guidance for cutoff [...] Standards of Medical Care in Diabetes 2016, [place] [employer] Association. Diabetes Care. 2016.39(Suppl 1). [facility] BUN SERPL-NMIN038 - 21 mg/dLCCFCCF CREAT SERPL-MCNC0.97(H)0.58 - 0.96 mg/dL CCFCCF SODIUM SERPL-SCHB125674 - 144 mmol/LCCFCCF POTASSIUM SERPL-SCNC3.6(L)3.7 - 5.1 mmol/LCCFCCF CHLORIDE SERPL-LLUT30735 - 107 mmol/LCCFCCF CO2 SERPL-SCNC25 22 - 30 mmol/LCCFCCF ANION GAP SERPL-XJTT226 - 15 mmol/LCCFEGFRCR SERPLBLD CKD- EPI 051695>=60 mL/min/1.73m???CCFComment:Estimated Glomerular Filtration Rate (eGFR) is calculated [...] EDT Specimen Type: BLOOD SPECIMEN Ordering Facility: [facility] ?Address: [address] [place] [address] Original Ordering Provider: FUENTES AMARAL Authorizing ProviderResult TypeResult StatusGeneric External Data Provider CLINISYNCFinal ResultPerforming OrganizationAddressCity/State/[facility] CodePhone Number CLINISYNC CC [address] [place] [address] * XR forearm 2 views right (09/29/2024 2:01 PM EDT) Only the most recent of2 resultswithin the time period is included. Anatomical RegionLateralityModalityUpper Extremities, ForearmRightRadiographic Imaging Narrative Authorizing ProviderResult TypeResult StatusHonorhealth [facility] Delmer MDIMG XR PROCEDURES Final Result * XR WRIST 2 VIEWS RIGHT (09/29/2024 2:00 PM EDT)Anatomical RegionLaterality ModalityRadiographic Imaging Narrative Authorizing ProviderResult TypeResult StatusHonorhealth [facility] Delmer MDIMG XR PROCEDURES Final Result * XR [...] EDT Narrative 09/29/2024 1:46 PM EDT [facility] ?[address] ? [place] [address] ?XRay Report ? Signed ? Patient: MARC,VIJAYA S ?MR#: [id number] ?? : 1985 ?Acct:[id number] ?? Age/Sex: 38 / F ?ADM Date: 09/29/24 ?? Loc: LAB ? Attending Dr: Cas Dowell M.D. ? Ordering Physician: Cas Dowell M.D. ?? Date of Service: 09/29/24 ?? Procedure(s): XR elbow RT 2V ?? Accession Number(s): [id number] ? cc: Cas Dowell M.D. ? [facility] ? [address] [facility] ? [place] [address] ? Patient Name: ?? VIJAYA TRAN ? MRN: [facility]:[id number] ? date: 1985 ?Sex: F ?? Assigned Patient Location: LAB ?? Current Patient Location: LAB ?? Accession/Order Number: [id number] ?? Exam Date: 09/29/2024 ??13:00 ?Report Date: 09/29/2024 ??13:44 ? At the request of: ?? CAS ??DELMER ? Procedure: ??XR elbow RT 2V ? [...] Dictation Location: RADIO-PC-23 ? Electronically authenticated by: [id number] ??Y ?? Date: 09/29/2024 ??13:44 ? Dictated By: ?Michael Price M.D. ? Signed By: ?09/29/ 1346 ? DD/DT: 09/29/ 1344 ? TD/TT: ? Pipe Bowls Paint Trimmer: Procedure Note Radiology, Radiologist, - 09/29/2024 [facility] [place] [id number] XRay Report Signed Patient: VIJAYA TRAN SMR#: [id number] : 1985Acct:[id number] Age/Sex: 38 / FADM Date: 09/29/24 Loc: LAB Attending Dr: Cas Dowell M.D. Ordering Physician: Cas Dowell M.D. Date of Service: 09/29/24 Procedure(s): XR elbow RT 2V Accession Number(s): [id number] cc: Cas Dowell M.D. [facility] [place] [address] Patient Name: VIJAAY TRAN MRN: [facility]:[id number] date: 1985 Sex: F Assigned Patient Location: LAB Current Patient Location: LAB Accession/Order Number: [id number] Exam Date: 09/29/2024 13:00 Report Date: 09/29/2024 13:44 At the request of: CAS DOWELL MD Procedure: XR elbow RT 2V RIGHT ELBOW - 2 views CLINICAL HISTORY: Right Forearm Pain COMPARISON: None FINDINGS: No elbow joint effusion or acute bony process. Joint spaces appear maintained. XR/XR elbow RT 2V IMPRESSION: NO ACUTE BONY PROCESS. Impression dictated by: Michael Price Jr., DKerriOKerri 09/29/2024 1:44 PM Dictation Location: [place] [address] Electronically authenticated by: [id number] Y Date: 3:44 Dictated By: Michael Price M.D. Signed By:09/29/24 1346 DD/ 43 TD/TT: Pipe Bowls Paint Trimmer: Authorizing ProviderResult TypeResult StatusMaramy Dowell MDIMG XR PROCEDURES Final Result * XR wrist 1 or 2 views right (09/29/2024 1:43 PM EDT)Anatomical Region LateralityModalityUpper Extremities, WristRightRadiographic ImagingSpecimen (Source)Anatomical Location / LateralityCollection Method / VolumeCollection TimeReceived Time09/29/2024 1:43 PM EDT Narrative 09/29/2024 1:45 PM EDT [facility] ?[address] ? [place] [address] ?XRay Report ? Signed ? Patient: MARC,VIJAYA S ?MR#: [id number] ?? : 1985 ?Acct:[id number] ?? Age/Sex: 38 / F ?ADM Date: 09/29/24 ?? Loc: LAB ? Attending Dr: Cas Dowell M.D. ? Ordering Physician: Cas Dowell M.D. ?? Date of Service: 09/29/24 ?? Procedure(s): XR wrist RT 2V ?? Accession Number(s): [id number] ? cc: Cas Dowell M.D. ? [facility] ? [address] [place] [address] ? [place] [address] ? Patient Name: ?? VIJAYA Tan MARC ? MRN: [facility]:[id number] ? date: 1985 ?Sex: F ?? Assigned Patient Location: LAB ?? Current Patient Location: LAB ?? Accession/Order Number: [id number] ?? Exam Date: 09/29/2024 ??13:00 ?Report Date: [...] Dictation Location: RADIO-PC-23 ? Electronically authenticated by: [id number] ??Y ?? Date: 09/29/2024 ??13:43 ? Dictated By: ?Michael Price M.D. ? Signed By: ?09/29/24 1345 ? DD/ 1343 ? TD/TT: ? Pipe Bowls Paint Trimmer: Procedure Note Radiology, Radiologist, MD - 09/29/2024 [place] [address] XRay Report Signed Patient: VIJAYA TRAN [facility]#: [id number] : 1985Acct:[id number] Age/Sex: 38 / FADM Date: 09/29/24 Loc: LAB Attending Dr: Cas Dowell M.D. Ordering Physician: Cas Dowell M.D. Date of Service: 09/29/24 Procedure(s): XR wrist RT 2V Accession Number(s): [id number] cc: Cas Dowell M.D. [place] [address] Patient Name: VIJAYA TRAN MRN: [facility]:[id number] date: 1985 Sex: F Assigned Patient Location: LAB Current Patient Location: LAB Accession/Order Number: [id number] Exam Date: 09/29/2024 13:00 Report Date: 09/29/2024 [...] Jr., D.O. 09/29/2024 1:43 PM Dictation Location: [place] [address] Electronically authenticated by: [id number] Y Date: 3:43 Dictated By: Michael Price M.D. Signed By:09/29/24 1345 DD/ 1343 TD/TT: Pipe Bowls Paint Trimmer: Authorizing ProviderResult TypeResult StatusCas Dowell MDG XR PROCEDURES Final Result from Last 3 Months Insurance Care Teams Team MemberRelationshipSpecialtyStart DateEnd Date Cas Dowell MD [address] [place] [address] PCP - GeneralFamily Medicine04/09/23
--- OUTSIDE RECORDS SUMMARY | 2024-12-10 09:34 | XMS_ITS | Encounter Summary ---
Author Organization [facility] Address [address] [place] [address] Care Team Providers Care Spring Clipper Name Role Phone Cas Galicia MD Primary Care Provider [phone] Encounter Details DateTypeDepartmentCare Team (Latest Contact Info)Crxiyvvdayj79/27/2025linisync Result Encounter [facility] Department Unsolicited Priscila Gonzalez, BRANDY [address] [place] [address] [place] [address] Social History Tobacco UseTypesPacks/DayYears UsedDateSmoking Tobacco: NeverSmokeless [...] other ways by your partner or ex-partner?Patient wixccpiz14/04/2025Within the last year, have you been kicked, [...] you get together with friends or relatives?Patient ballzwaj70/04/2025How often do you attend taoism or jew services?Patient embvlanu74/04/2025Do you belong to any clubs or organizations such as taoism groups, unions, fraLYFE [employer] or athletic groups, or school groups?No08/08/2024How often do you attend meetings of the clubs or organizations you belong to?Patient bvemujsu59/04/2025re you , , , , never , or living with a partner?Umurslg0408/08/2024UDIT-CAnswerDate RecordedQ1: How often do you have a [...] food, housing, medical care, and heating?Somewhat hard08/08/2024[employer] [place] [employer] - Occupational Stress QuestionnaireAnswerDate [...] pay the mortgage or rent on time?Patient eshwmfbe68/03/2024In the last 12 months, how many places have you lived?1 04/08/2023In the last 12 months, was there a time when you did not have a steady place to sleep or slept in ashelter (including now)?Patient pirkbbra74/03/2024 Housing Stability Vital SignAnswerDate RecordedIn the last [...] ValueDate RecordedSex Assigned at BirthNot on fileLegal CdcRyxusk16/15/2023 6:40 PM EDTGender IdentityNot on fileSexual OrientationNot on filedocumented as of this encounter Plan of Treatment DateTypeDepartmentCare Team (Latest Contact Info)Yzvkmhxalbq39/03/2026 8:20 AM EDTOffice Visit [facility] [address] [place] [address] Jodi Holden, PA [address] [place] [address] 12/07/2025 2:00 PM ESTProcedure Visit [facility] [address] [place] [address] Rubens Tim DO [address] [facility] [place] [address] documented as of this encounter Procedures Procedure NamePriorityDate/TimeAssociated DiagnosisCommentsSRMCOH TESTOSTERONE FREE/TOT NHDZRRBBhlxexd85/27/2025 12:04 PM EDT ALL QEPZTUKIOMTPKiocsym14/27/2025 12:04 PM EDT ALL ESTRONE(E1)Hhcuomq6212/01/2024 12:04 PM EDT ALL DHEA YKHKPZTRknhber87/27/2025 12:04 PM EDT ALL KSNANREPABZOQBPDODBTNCLgzharq88/27/2025 12:04 PM EDT IGP,APTIMA HPV,AGE KGPDPrvssdy94/27/2025 11:01 AM EDT documented in this encounter Results * ALL DEHYDROEPIANDROSTERONE (12/01/2024 12:04 PM EDT)ComponentValueRef Range Test MethodAnalysis TimePerformed AtPathologist SignatureDHEA, NBWNH72072 - 701 ng/dLTBHComment: This test was developed and its performance characteristics determined by [facility]. It has not been cleared or approved by the Food and Drug Administration. Performed at: ?? - [facility] ??[id number] Supervisor Extrusion: Guerrero Bojorquez MD, Phone: ??[phone] Specimen (Source)Anatomical Location / LateralityCollection Method / Volume Collection TimeReceived Time12/01/2024 12:04 PM EDT1 12:06 PM EDT Narrative [facility] - 12/05/2024 10:16 PM EDT Authorizing ProviderResult TypeResult StatusKristina Carlos NPCLINISYNCFinal ResultPerforming OrganizationAddressCity/State/ZIP CodePhone Number [facility] * SRMCOH TESTOSTERONE FREE/TOT EQUILIB (12/01/2024 12:04 PM EDT)ComponentValue Ref RangeTest MethodAnalysis TimePerformed AtPathologist SignatureTESTOSTERONE 118 - 60 ng/dLTBHFREE TESTOSTERONE(DIRECT)1.00.0 - 4.2 pg/mLTBHComment: Performed at: ??CB - [facility] [address], [place], [place] ??[id number] Supervisor Extrusion: Zacarias Sage PhD, Phone: ??[phone] Performed at: ??BN - [facility] [address] ??[id number] Supervisor Extrusion: Guerrero Bojorquez MD, Phone: ??[phone] Specimen (Source)Anatomical Location / LateralityCollection Method / Volume Collection TimeReceived Time12/01/2024 12:04 PM EDT1 12:06 PM EDT Narrative [facility] - 12/04/2024 2:07 AM EDT Authorizing ProviderResult TypeResult StatusKristina Carlos NPCLINISYNCFinal ResultPerforming OrganizationAddressCity/State/ZIP CodePhone Number [facility] * ALL ESTRONE(E1) (12/01/2024 12:04 PM EDT)ComponentValueRef RangeTest Method Analysis TimePerformed AtPathologist JvbbobazaFWLBANSWP41.7. pg/mLTBHComment: ? Adult Female ? Range ?Follicular phase ? 12.5 - 166.0 ?Ovulation phase ?85.8 - 498.0 ?Luteal phase ? 43.8 - 211.0 Postmenopausal <6.0 - 54.7 ? 1st trimester 215.0 - >4300.0 [place] ECLIA methodology Specimen (Source)Anatomical Location / LateralityCollection Method / Volume Collection TimeReceived Time12/01/2024 12:04 PM EDT10/ 12:06 PM EDT Narrative [facility] - 12/04/2024 2:07 AM EDT Authorizing ProviderResult TypeResult StatusKrjose Carlos NPCLINISYNCFinal ResultPerforming OrganizationAddressCity/State/ZIP CodePhone Number [facility] [...] ?? 0.1 Performed at: ??CB - [facility] [place] [address] [facility], [place], [place] ??[id number] Supervisor Extrusion: Zacarias Sage PhD, Phone: ??[phone] Specimen (Source)Anatomical Location / LateralityCollection Method / Volume Collection TimeReceived Time12/01/2024 12:04 PM EDT1 12:06 PM EDT Narrative [facility] - 12/04/2024 2:07 AM EDT Authorizing ProviderResult TypeResult StatusPriscila [facility] NPCLINISYNCFinal ResultPerforming OrganizationAddressty/State/ZIP CodePhone Number [facility] * ALL DHEA SULFATE (12/01/2024 12:04 PM EDT)ComponentValueRef RangeTest Method Analysis TimePerformed AtPathologist SignatureDHEA-YHETPAZ055.057.3 - 279.2 ug/dLTBHSpecimen (Source)Anatomical Location / LateralityCollection Method / VolumeCollection TimeReceived Time12/01/2024 12:04 PM EDT1 12:06 PM EDT Narrative [facility] - 12/04/2024 2:07 AM EDT Authorizing ProviderResult TypeResult StatusPriscila Gonzalez NPCLINISYNCFinal ResultPerforming OrganizationAddressCity/State/ZIP CodePhone Number [facility] * IGP,APTIMA HPV,AGE GDLN (12/01/2024 11:01 AM [...] at: 01 =G ?[facility] ?? [address] [place], [place] ??[address] ?? Maryjo Saez MD, IGP, APTIMA HPV, RFX 16/18,45Note.TBHComment: ?? TESTS ? RESULT ??FLAG ??UNITS ?REF RANGE ??LAB DIAGNOSIS: ?02 ?? NEGATIVE FOR INTRAEPITHELIAL LESION OR MALIGNANCY. Specimen adequacy: ?02 ?? Satisfactory for evaluation. No endocervical component is identified. Performed by: ? 02 ?? Araseli White, Diamond Die Maker (ASCP) . ? 02 Note: ? Note [...] pap test was interpreted ?? using the [employer](R) [employer](TM) Cervical Algorithm whole ?? slide imaging system. HPV Genotype Reflex ?? Note ?02 ?? Criteria not met, HPV Genotype not performed. ?FLAG LEGEND: ?L-Low Normal,H-High Normal,LL-Alert Low,HH-Alert High <-Panic Low,>-Panic High,A-Abnormal,AA-Critical Abnormal Performed at: 02 WB ?[facility] ?? [address] [place] ??[phone] ?? Maryjo Saez MD, HPV APTIMANegativeNegativeTBHComment: This nucleic acid amplification test detects fourteen high- risk HPV types (16,18,31,33,35,39,45,51,52,56,58,59,66,68) without differentiation. Performed at: ??=G - [facility] [address] ??[id number] Supervisor Extrusion: Maryjo Saez MD, Phone: ??[phone] Performed at: ??WB - [facility] [address] ??[id number] Supervisor Extrusion: Maryjo Saez MD, Phone: ??[phone] Specimen (Source)Anatomical Location / LateralityCollection Method / Volume Collection TimeReceived Time12/01/2024 11:01 AM EDT1 7:54 PM EDT Narrative [facility] - 12/05/2024 1:08 PM EDT SPATULA-ALONE VAGINA Authorizing ProviderResult TypeResult StatusKrtidalhealth nanticokea [facility] NPLAB BLOOD ORDERABLESFinal ResultPerforming OrganizationAddressCity/State/ZIP CodePhone Number [facility] documented in this encounter Visit Diagnoses Not on filedocumented in this encounter Care Teams Team MemberRelationshipSpecialtyStart DateEnd Date Cas Galicia MD [address] [place] [address] PCP - GeneralFamily Medicine04/09/23documented as of this encounter
--- OUTSIDE RECORDS SUMMARY | 2024-12-10 09:34 | XMS_ITS | Encounter Summary ---
Author Organization [facility] Address [address] [place] [address] Care Team Providers Care Suspender Cutter Name Role Phone Cas Galicia MD Primary Care Provider [phone] Encounter Details DateTypeDepartmentCare Team (Latest Contact Info)Gvbbcueqxyt27/31/2025Telephone [facility] [address] [place] [place] [address] Jessica Nunez MA [address] [place] [address] Social History Tobacco UseTypesPacks/DayYears UsedDateSmoking Tobacco: NeverSmokeless [...] other ways by your partner or ex-partner?Patient oxfhwocz57/04/2025Within the last year, have you been kicked, [...] you get together with friends or relatives?Patient tflurtyz18/04/2025How often do you attend restoration or temple services?Patient xowbebra53/04/2025Do you belong to any clubs or organizations such as restoration groups, unions, fraResolve Therapeutics or athletic groups, or school groups?No08/08/2024How often do you attend meetings of the clubs or organizations you belong to?Patient iuqvdpnb36/04/2025re you , , , , never , or living with a partner?Enmvfux1908/08/2024UDIT-CAnswerDate RecordedQ1: How often do you have a [...] food, housing, medical care, and heating?Somewhat hard08/08/2024[employer] [place] [employer] - Occupational Stress QuestionnaireAnswerDate [...] pay the mortgage or rent on time?Patient bvxntuud34/03/2024In the last 12 months, how many places have you lived?1 04/08/2023In the last 12 months, was there a time when you did not have a steady place to sleep or slept in ashelter (including now)?Patient hmsfgyah54/03/2024 Housing Stability Vital SignAnswerDate RecordedIn the last 12 months, was there a time when you were not able to pay the mortgage or rent on time?No08/08/2024In the past 12 months, how many times have you moved where you were living?0 08/08/2024t any time in the past 12 months, were you homeless or living in a longterm (including now)?No08/08/2024CommentsNoSex and Gender Information ValueDate RecordedSex Assigned at BirthNot on fileLegal IdtPbjhet78/15/2023 6:40 PM EDTGender IdentityNot on fileSexual OrientationNot on filedocumented as of this encounter Miscellaneous Notes * Telephone Encounter - Jessica Nunez MA - 12/05/2024 11:02 AM EDT Dhea 5 MG medication was faxed to [facility] to be filled for patient. The other requests from [facility] were canceled. documented in this encounter Plan of Treatment DateTypeDepartmentCare Team (Latest Contact Info)Nscwajjowia99/03/2026 8:20 AM EDTOffice Visit [facility] [address] [place] [address] Jodi Holden, PONCE [address] [place] [address] 12/07/2025 2:00 PM ESTProcedure Visit [facility] [address] [place] [address] Rubens Tim DO [address] [facility] [place] [address] documented as of this encounter Visit Diagnoses Not on filedocumented in this encounter Care Teams Team MemberRelationshipSpecialtyStart DateEnd Date Cas Galicia MD [address] [place] [address] PCP - GeneralFamily Medicine04/09/23documented as of this encounter
--- OUTSIDE RECORDS SUMMARY | 2024-12-10 09:34 | XMS_ITS | Encounter Summary ---
Author Organization [facility] Address [address] [place] [address] Care Team Providers Care Eye Care Professional Name Role Phone Cas Galicia MD Primary Care Provider [phone] Encounter Details DateTypeDepartmentCare Team (Latest Contact Info)Ierneopvbfe61/21/2025Orders Only [facility] [address] [place] [address] Halima Morris MD [address] [place] [address] Social History Tobacco UseTypesPacks/DayYears UsedDateSmoking [...] your partner or ex-partner?No01/10/2023HQ-2AnswerDate RecordedPatient Health Questionnaire-2 Ultzf115Exercise Vital SignAnswerDate RecordedOn average, how many days [...] CommentsNoSex and Gender InformationValueDate RecordedSex Assigned at LxwevFqjjhy63/22/2025 9:10 PM EDTLegal LrcVvpikh67/30/2022 1:25 PM EDTGender SygneuuxEchoun50/22/2025 9:10 PM EDTSexual OrientationHeterosexual or Straight 09/26/2024 9:10 PM EDTdocumented as of this encounter Plan of Treatment Not on file documented as of this encounter Procedures Procedure NamePriorityDate/TimeAssociated DiagnosisCommentsCARDIAC DEVICE CHECK - REMOTE - LOOP RECORDER (ILR)Nrblsvz9011/25/2024 12:00 AM EDTdocumented in this encounter Results * Cardiac device check - Remote loop recorder (ILR) (11/25/2024 12:00 AM EDT) Anatomical RegionLateralityModalityOtherSpecimen (Source)Anatomical Location / LateralityCollection Method / VolumeCollection TimeReceived Time11/25/2024 Narrative Authorizing ProviderResult TypeResult StatusSabaylee Morris [facility] IMPLANTABLE CARDIAC DEVICE PROCEDURESFinal Result documented in this encounter Visit Diagnoses Not on filedocumented in this encounter Care Teams Team MemberRelationshipSpecialtyStart DateEnd Date Cas Galicia MD [address] [place] [address] PCP - General02/17/22documented as of this encounter
--- OUTSIDE RECORDS SUMMARY | 2024-12-10 09:50 | XMS_ITS | CCD ---
Author Organization [facility] Care Team Providers Care Privacy Manager Name Role Phone Cas Galicia MD Primary Care Provider CAS GALICIA Primary Care Unavailabl e CANDIDO DAVID Referring Unavailable CAS GALICIA Primary Care Unavailabl e NABOR YANCEY Referring Unavailable Cas Galicia MD Primary Care Provider Cas Galicia MD Primary Care Provider Cas Galicia Primary Care Provider Ana PEREZ, Sai Unavailable Rubens Tim Unavailable Rubens Tim DO Unavailable Cas Galicia MD Primary Care Provider Cas Galicia Primary Care Provider [phone] Ana PEREZ, Sai Unavailable Rubens Tim DO Unavailable Cas Galicia Primary Care Provider Rubens Tim DO Unavailable Cas Galicia Primary Care Provider CAS GALICIA Primary Care Physician CAS GALICIA Primary Care Unavailabl e Cas Galicia Primary Care Provider Ana PEREZ, Sai Unavailable Rubens Tim DO Unavailable Cas Galicia MD Primary Care Provider Glenroy DO, Rubens [...] DR REYNOLDS Consulting Unavailable NADERER, DR CAS Guzamn Primary Care Unavailable GLENROY ., DR REYNOLDS [...] CAS Guzman Primary Care Unavailable MORTEZA ., YANRIA Consulting Unavailable DAMION, JIMMY Starkey Consulting Unavailable Ana PEREZ, Sai Unavailable Grayson PEREZ, Cas Primary Care Provider Cas Galicia Primary Care Provider Rubens Tim DO Unavailable Grayson PEREZ, Cas Primary Care Provider aCs Galicia MD Primary Care Provider Cas Galicia MD Unavailable SARAH BEST Attending Unavailable NADERER, CAS Referring Unavailable NADERER, CAS Primary Care Unavailable MARNI FLOWERS Attending Unavailable NADERER, CAS Referring Unavailable NADERESuzy, CAS Primary Care Unavailable AKILA YAO Attending Unavailable NADERESuzy, CAS Referring Unavailable NADERESuzy, CAS Primary Care Unavailable MARNI FLOWERS Attending Unavailable NADERER, CAS Referring Unavailable NADERESuzy, CAS Primary Care Unavailable Cas Galicia MD Unavailable AKILA YAO Referring Unavailable NADERESuzy, CAS Primary Care Unavailable Grayson PEREZ, Cas Primary Care Provider Cas Galicia MD Primary Care Provider Cas Galicia MD Primary Care Provider Cas Galicia MD Primary Care Provider [phone] PRESTON FRASER Referring Unavailable NADERER, CAS JOHNSON Primary Care Unavailabl e NABOR YANCEY Referring Unavailable NADERER, CAS JOHNSON Primary Care UnavailMACRINA Hernandez Referring Unavailable NADERER, CAS JOHNSON Primary Care Unavailbenito e Grayson PEREZ, Cas Primary Care Provider [phone] HackenOliva fall APRN Attending Provider Oliva Becerra Attending Unavail able Oliva Becerra Admitting Unavail able Cas Galicia Primary Care Unavailable Cas Galicia MD Primary Care Provider ABHYPAT, FUENTES Referring Unavailable NADERER, CAS Guzman Primary Care Unavailable MARGOT LIMON Attending Unavailable ABHYANKAR, FUENTES Referring Unavailable NADERER, CAS Guzman Primary Care Unavailable Дмитрий, Bautista Benavides Attending Unavailable Дмитрий, Bautista Benavides Attending Unavailable William PEREZ, Phillip Guerra Attending Unavailable Grayson PEREZ, Cas Johnson Primary Care Unavail able Grayson PEREZ, Cas Gutierrezony Primary Care Unavail able William PEREZ, Phillip Guerra Attending Unavailable William PEREZ, Phillip Guerra Attending Unavailable Grayson PEREZ, Cas Johnson Primary Care Unavail able William PEREZ, Phillip Guerra Attending Unavailable Grayson PEREZ, Cas Johnson Primary Care Unavail able MARNI FLOWERS Attending Unavailable LACEYERECAS Almonte Referring Unavailable NADERER, CAS Primary Care Unavailable TERRI HAN Attending Unavailable LACEYERESuzy, CAS Referring Unavailable NADERESuzy, CAS Primary Care Unavailable AKILA YAO Attending Unavailable GRAYSON, CAS Referring Unavailable GRAYSON, CAS Primary Care Unavailable AKILA YAO Referring Unavailable LACEYERESuzy, CAS Primary Care Unavailable ABIEL MATTHEW Referring Unavailable VIPUL, ABIEL Referring Unavailable VIPUL, ABIEL Referring Unavailable VIPUL, ABIEL Referring Unavailable VIPUL, ABIEL Referring Unavailable VIPUL, ABIEL Referring Unavailable VIPUL, ABIEL Referring Unavailable VIPUL, ABIEL Referring Unavailable VIPUL, ABIEL Referring Unavailable VIPUL, ABIEL Referring Unavailable VIPUL, ABIEL Referring Unavailable ABELSTEPHON Referring Unavailable MACRINA WADSWORTH Attending Unavailable ABIEL MATTHEW Referring Unavailable Cas Galicia MD Primary Care Provider CAS GALICIA Attending Unavailable JODI HOLDEN Attending Unavailable LACEYERESuzy, CAS Attending Unavailable GRAYSON, CAS Attending Unavailable GRAYSON, CAS Attending Unavailable RUBENS TIM Attending Unavailable Cas Galicia MD Primary Care Provider [phone] Cas Galicia MD Unavailable Cas Galicia MD Unavailable Allergies Allergy ClassificationReported Allergen(s)Allergy TypeDate of OnsetReaction(s) FacilityAluminum aspirin (1 source)Aluminum aspirinDrug Xpvlzwr57-49-7494IxosEkopg HealthCephalosporins (antibiotic) (2 sources)CefaclorDrug Rkmsjiw78-05-3593Durejxyax Of Breath, RashB[facility] Work Phone: drospirenone / Ethinyl Estradiol (1 source)drospirenone / Ethinyl EstradiolDrug Jrfrmfb04-40-2813[facility] Work Phone: ethinyl Estradiol / Norethindrone (1 source)Ethinyl Estradiol / NorethindroneDrug Kmaslly08-10-2778S[facility] Work Phone: latex (1 source)LatexSubstance Vdwyhpc45-22-5270Pdpffgeb, [facility] Work Phone: Macrolides (antibiotic) (1 source)ErythromycinDrug Rypenzj81-48-0262Nnqhrvfzn Of BreathBellevue Hospital Health Work Phone: NSAIDs (1 source)IbuprofenDrug Xghualg43-04-7290Fs[facility] Work Phone: penicillins (antibiotic) (1 source)PenicillinsDrug Mzgjdhl63-80-9260JvwyHoxqi Health Work Phone: rofecoxib (1 source)rofecoxibDrug Qkzdyyk69-87-5638[facility] Work Phone: sulfonamides (antibiotic) (1 source)Sulfonamides (Antibiotic)Drug Wjwoudx82-32-3347Uspgv [facility] Unclassified (11 sources)Clindamycin/LincomycinPropensity to adverse reactions to drug 76-98-3286IuawEtgeu Health Work Phone: Unclassified (20 sources)Iodides; Translations: [IODIDES]Propensity to adverse reactions to fyzh58-06-6828Cegsrgo, AnaphylaxisMer Health Work Phone: Unclassified (20 sources)Lavender OilPropensity to adverse reactions to zglw17-74-1573 AnaphylaxisRiverview Health Institute (20 sources)Aluminum aspirin; Translations: [ASPIRIN]Drug Suxgfyq66-19-4161Koyf, Angioedema, UnknownRiverview Health Institute (20 sources)Cefaclor; Translations: [cefaclor]Drug Mgptpmt00-14-5473Jmrxkhgoi Of Breath, Anaphylaxis, Swelling, Unknown (qualifier value), Dyspnea (finding) [facility] Work Phone: (20 sources)Cefuroxime; Translations: [CEFUROXIME AXETIL]Drug Zxygmsh67-68-2527 Rash, Unknown, Shortness of BreathBellevue Hospital [facility] Work Phone: (20 sources)drospirenone / Ethinyl Estradiol; Translations: [DROSPIRENONE- ETHINYL ESTRADIOL]Drug Almlbej38-74-5134Podrnhu, Other: See CommentsBellevue Hospital [facility] Work Phone: (20 sources)Erythromycin; Translations: [ERYTHROMYCIN]Drug Izeqmms46-91-7755 Shortness Of Breath, Swelling, UnknownBellevue Hospital [facility] Work Phone: (20 sources)Ethinyl Estradiol / NorethindroneDrug Bzhdfld55-59-4654M[facility] Work Phone: (20 sources)Ibuprofen; Translations: [ibuprofen]Drug Naspsbw19-93-1796Sxyafox (qualifier value), Rash, Unknown, Dyspnea (finding)[facility] (20 sources)Latex; Translations: [LATEX]Propensity to adverse reactions to drug 91-55-6566Ljovlkho, Rash, Itching, Unknown, Eruption of skin (disorder)[facility] Work Phone: comment on above:and swelling (15 sources)Penicillins; Translations: [PENICILLINS]Propensity to adverse reactions to hbtm24-38-1798Ccbq, ItchingRiverview Health Institute Work Phone: (20 sources)rofecoxibDrug Ysespvt62-73-2026Eutzzji, RashRiverview Health Institute Work Phone: (6 sources)Sulfonamides (Antibiotic)Propensity to adverse reactions to drug 67-08-6056Zjk[facility] (20 sources)Aspirin; Translations: [aspirin]Drug Tgwucoq91-11-1413Zmqtelb, Angioedema, Unknown (qualifier value), Weal (disorder), RashBrown Memorial Hospital (20 sources)Clindamycin; Translations: [clindamycin]Drug Wxyypmm61-60-4156 Swelling, Shortness of Breath, Rash, Unknown (qualifier value), Eruption of skin (disorder)[facility] HospitalComment on above:sob, rash (20 sources)Contrast media; Translations: [CONTRAST DYE]Drug Nhsocgv46-88-3630 AnaphylaxisBrown Memorial Hospital (20 sources)Naproxen; Translations: [NAPROXEN]Drug Wbpovwf89-72-2228Zyzogxxd, AngioedemaBrown Memorial Hospital (19 sources)PenicillinsPropensity to adverse reactions to iayl85-66-4165Neyw, ItchingBrown Memorial Hospital (20 sources)Sulfonamides (Antibiotic); Translations: [SULFA (SULFONAMIDE ANTIBIOTICS)]Drug Jbtdrzm11-83-9195Mewruysn, Shortness of BreathBrown Memorial Hospital (20 sources)Lavender (Lavandula Angustifolia); Translations: [LAVENDER (LAVANDULA ANGUSTIFOLIA)]Drug Odgstwq87-90-3678RhjawcqxzefMgpckedyh Clinic (7 sources)Eucalyptus oilDrug Kpvvrco22-80-6897[facility] (20 sources)gatifloxacin; Translations: [GATIFLOXACIN]Drug Iskbwtz26-76-8543 DiarrheaRiverview Health Institute Work Phone: (20 sources)Norethindrone-Ethin Estradiol; Translations: [NORETHINDRONE-ETHIN ESTRADIOL]Propensity to adverse reactions to vebp87-76-2382KwmewntJikbesmnh Clinic (20 sources)Eucalyptus extract; Translations: [EUCALYPTUS]Drug Zmnnfac48-05-2719 AnaphylaxisBrown Memorial Hospital (20 sources)levoFLOXacin; Translations: [LEVOFLOXACIN]Drug Zmifxgr98-54-0812Onkj [facility] (20 sources)metroNIDAZOLE; Translations: [METRONIDAZOLE]Drug Rpqyixi45-95-7743 UnknownBrown Memorial Hospital (20 sources)Sulfamethoxazole / Trimethoprim; Translations: [SULFAMETHOXAZOLE-TRIMETHOPRIM]Drug Jsjzknk90-62-3614Gdqxejn, Other (See Comments)[facility] (20 sources)Fish; Translations: [FISH CONTAINING PRODUCTS]Drug Mpiqpwt19-95-9849 [facility] Work Phone: (20 sources)Shellfish; Translations: [SHELLFISH DERIVED]Drug Aibtfxq12-07-0285 [facility] Work Phone: (20 sources)PenicillinsPropensity to adverse reactions to umgm81-37-7326Qkun, ItchingBrown Memorial Hospital (20 sources)Penicillin G; Translations: [PENICILLIN G BENZATHINE]Drug Allergy 03-12-5606GnstnkeAfogcuuzm Clinic Work Phone: (8 sources)Iodine; Translations: [iodine]Drug Emghqvm19-74-0941Hpzvthc (qualifier value)[facility] (8 sources)Macrolides (Antibiotic); Translations: [macrolide antibiotics]Drug todpgbt90-69-6626Ngypzfu - specialty (qualifier value)[facility] (8 sources)Penicillin; Translations: [penicillin]Drug AllergyUnknown (qualifier value), Dyspnea (finding)[facility] (8 sources)Sulfonamides (Antibiotic); Translations: [sulfa drugs]Drug allergy Allergy - specialty (qualifier value)[facility] (20 sources)valACYclovir; Translations: [valacyclovir]Drug Wbpzebe85-26-2549 Anaphylaxis (disorder), Shortness Of Breath, AnaphylaxisExecutive Urology of [facility] (20 sources)Povidone-Iodine; Translations: [povidone iodine topical]Drug Allergy 49-91-9799Enrrydrp of skin (disorder), [facility] (20 sources)SeafoodPropensity to adverse reactions to qrif37-89-0110AppxmSarah Carranza [facility] Work Phone: (20 sources)rofecoxib; Translations: [ROFECOXIB]Drug Scourqz55-46-0157Jyqy, UnknownBrown Memorial Hospital Other [place] [facility] (6 sources)IODINATED CONTRAST MEDIA; Translations: [IODINATED CONTRAST MEDIA] Propensity to adverse reactions to drug (disorder)60-11-5497Osbdnures Clinic Other [place] [facility] (1 source)AspirinDrug Lhmemaf19-53-1602Gym [facility] Repository (3 sources)Cefaclor; Translations: [Ceclor]Drug Klyrgbu38-46-5223Umm [facility] Repository (2 sources)Cefuroxime; Translations: [Ceftin]Drug Abkybiz29-74-7056Gyl [facility] Repository (1 source)ClindamycinDrug Aznggsy09-41-3987RtlSelect Medical [facility]ty [facility] (3 sources)ErythromycinDrug Vpyepvh51-56-6011Ahdxywqgcn BreathingThe [facility] (1 source)Eucalyptus extractDrug Rhpsmyf43-28-0351Lhk [facility] (1 source)gatifloxacinDrug Udqkfmc25-88-1804QohSelect Medical Specialty [facility] (2 sources)Ibuprofen; Translations: [Motrin]Drug AllergyThe [facility] (1 source)Iodine (And Iodine Containting Drugs)Drug allergy (disorder)03-12-2014 [facility] (1 source)LatexDrug allergy (disorder)82-67-0968ItwSelect [facility]ty [facility] (1 source)levoFLOXacinDrug Evfnofv24-61-5120Ekb [facility] Rep[facility] (1 source)NaproxenDrug Cqtwlrn24-43-0573Mex [facility] Repository (1 source)PenicillinsDrug allergy (disorder)98-67-5247Qwa [facility] Repository (1 source)rofecoxibDrug Lgteocr22-91-3281Hmw [facility] Repository (1 source)Sulfamethoxazole / TrimethoprimDrug Bnggqal20-18-6912Kys [facility] Rep[facility] (1 source)Sulfonamides (Antibiotic)Drug allergy (disorder)43-50-1254Wdd [facility] Repository (1 source)valACYclovirDrug AllergyThe [facility] (20 sources)buPROPion; Translations: [BUPROPION]Drug Vfruadt52-65-7105Cbpme (See Comments), Other: See CommentsNODC Healthcare (20 sources)CefuroximeDrug Nhtdxlp28-22-3699AAYJ [facility] (20 sources)dimethicone; Translations: [DIMETHICONE]Drug Dmiffju45-80-7933WON[facility] (20 sources)Fish - dietaryAllergy to kcmuqxylr67-67-9343CvxmpCKWV [facility] (20 sources)GatifloxacinAllergy to -53-8689XidyztoaNEQA Healthcare (20 sources)LatexAllergy to sfgykzlud66-31-8179Eoexskn, Rash, Swelling, Unknown [facility] (20 sources)Menthol; Translations: [MENTHOL]Drug Flkgxun55-37-4967BztsrJPEN Healthcare (20 sources)PenicillinsDrug Zjrglsvyirx95-97-5573Ckbkelj, RashNOMS Healthcare (20 sources)zolpidem; Translations: [ZOLPIDEM]Drug Ftdpduk50-44-6321Xldgeci, Other (See Comments)[facility]S HealthcareComment on above:muscle spasms and jerking (20 sources)Galcanezumab-GnlmPropensity to adverse uykgufsyw09-86-1850EHAV [facility] (20 sources)Norethindrone-Eth EstradiolDrug Rzfvxtekjxe07-60-8742LUHI [facility] (20 sources)Benzathine penicillin - chemicalAllergy to bvmwxwguw32-24-2994BVAZ [facility] (20 sources)Sulfamethoxazole; Translations: [SULFAMETHOXAZOLE]Allergy to rcypqfqvt21-28-5695Ghydxqapog BreathingNODC HealthcareComment on above:triggers asthma (4 sources)Ibuprofen; Translations: [IBUPROFEN]Drug Rshwyje57-96-0415TqbHrewqg Repository (4 sources)natural latex rubber; Translations: [LATEX, NATURAL RUBBER]Propensity to adverse reactions to drug (disorder)34-39-9741HjkUzqamz Repository (20 sources)GLOVES, LATEX WITH ALOE VERA; Translations: [GLOVES, LATEX WITH ALOE VERA]Propensity to adverse reactions to drug (disorder)77-95-1029ItnTjlgod Repository (4 sources)NORETHINDRONE AC-ETH ESTRADIOL; Translations: [NORETHINDRONE AC-ETH ESTRADIOL]Propensity to adverse reactions to drug (disorder)50-06-1676DkxOgogxx Repository (20 sources)TopiramatePropensity to adverse pdajcrsik17-67-4771OxptzceizXXBO Healthcare (20 sources)SulfamethoxazoleDrug Gcbbold42-30-2965BbhRgrkfp Health System (8 sources)PenicillinsPropensity to adverse reactions to ltuu96-56-9516Dohmhlk, RashProMedica Health System (2 sources)TrimethoprimDrug Xivfptr23-63-1939Rhmosyhyfc BreathingSelect Medical Specialty Hospital - ColumbusComment on above:triggers asthma (1 source)CT dye and contrast; Translations: [CT dye and contrast]Propensity to adverse reactions (disorder)[facility] Repository (11 sources)Shellfish Protein-Containing Drug ProductsDrug Fglrggxtvzx48-36-1972 Hives, RashNOMS Healthcare Medications Current Medications MedicationDrug Class(es)DatesSig (Normalized)Sig (Original)6-aminocaproic acid 500 mg oral tablet (7 sources)Antifibrinolytic AgentStart: 04-03-2022 End: 97-56-1545homvixlxhuop acid (AMICAR) 500 mg tablet Indications: Qualitative platelet disorder (HCC) Take 2 tablets by mouth every 6 hours as needed (once prior to dentist and then after for 3-4 doses.) for up to 20 days. 40 tablet 3 10/02/2022 ActiveComment on above:Take 2 tablets by mouth every 6 hours as needed (once prior to dentist and then after for 3-4 doses.) for up to 5 days. Take 2 tablets by mouth every 6 hours as needed (once prior to dentist and then after for 3-4 doses.) for up to 20 days.acetaminophen 500 mg oral tablet (5 sources)Start: 68-31-9224pubn 1 tablet by mouth every six hours as needed for painacetaminophen (TYLENOL) 500 MG tablet Take 1 tablet by mouth every 6 hours as needed for Pain 30 tablet 01/30/2022 ActiveStart: 11-01-2020 End: 38-42-4498xpcipjzfgcafz (TYLENOL) tablet 650 mgacetaminophen 325 mg / butalbital 50 mg / caffeine 40 mg oral tablet (1 source)Barbiturate, Central Nervous System Stimulant, Methylxanthinetake 1 tablet by mouth every four hours as needed for headache xcnizspmvr-ycfystrzmmikc-qeatnzjq (FIORICET) 50-325-40 MG per tablet Take 1 tablet by mouth every 4hours as needed for Headaches 0 Activeacetaminophen 325 mg / HYDROcodone bitartrate 5 mg oral tablet (1 source)Opioid AgonistStart: 05-20-2021 End: 80-74-7062YVJLRdsomig-acetaminophen (NORCO) 5-325 MG per tablet Indications: Abdominal pain, acute, right lower quadrant Take 1 tablet by mouth every 8 hours as needed for Pain for up to 2 days. Intended supply: 3 days. Take lowest dose possible to manage pain 6 tablet 0 05/20/2021 05/22/2021 ActiveAjovy Autoinjector (2 sources)Start: 63-65-1467igeomn 225 mg by subcutaneous injection every month Ajovy Autoinjector 225 mg, SubCutaneous, qMonth, Refills(s) 0 Start Date: 01/04/23 Status: Ordered Repeat number: 1Start: 42-58-7112bwsyrl 225 mg by subcutaneous injection every monthAjovy Autoinjector 225 mg, SubCutaneous, qMonth, Refills(s) 0 Start Date: 01/04/23 Status: Orderedarformoterol 0.0075 mg/ml inhalation solution (20 sources)beta2-Adrenergic AgonistStart: 11-96-6567Uvecdxjlqxtq Tartrate (BROVANA) 15 MCG/2ML NEBU Take 1 ampule by nebulization 2 times daily 60 mL 11 2021 ActiveStart: 11-03-2021 End: 01-29-0775owep 2 mL by inhalation every twelve hoursarformoterol (BROVANA) 15 mcg/2 mL nebulizer solution Indications: 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 120 mL 5 11/03/2021 04/03/2022 Discontinued (Discontinuedby Patient)Comment on above: Inhale 2 mL as instructed every 12 hours.azelastine hydrochloride 0.137 mg/actuat metered dose nasal spray (20 sources)Histamine-1 Receptor AntagonistStart: 09-10-2023 End: 00-62-9530rhaq 1 spray(s) nasal route at bedtimeazelastine (ASTELIN) 137 mcg (0.1 %) nasal spray Indications: Chronic sinusitis SPRAY 1 SPRAY INTO EACH NOSTRIL IN THE MORNING AND BEFORE BEDTIME DIRECTED 30 mL 12 09/10/2023 07/01/2024 DiscontinuedStart: 04-09-2023 End: 87-57-4217Ghjpnlshtb HCl 137 MCG/SPRAY solution 04/09/2023 12/01/2024 DiscontinuedStart: 21-72-0547dijs 1 spray(s) nasal route at bedtimeazelastine 0.1% nasal spray SPRAY 1 SPRAY INTO EACH NOSTRIL IN THE MORNING AND BEFORE BEDTIME DIRECTED 09/07/2022 ActiveStart: 33-53-7955vrnzpdphsa nasal spray Nasal, BID, Refill(s) 0 Start Date: 09/05/22 Status: OrderedStart: 08-10-2022 End: 64-43-0800yjzk 1 spray(s) nasal route in the morningazelastine (ASTELIN) 137 mcg (0.1 %) nasal spray Indications: Chronic sinusitis Administer 1 spray i nto each nostril in the morning and 1 spray before bedtime. Use in each nostril as directed. 30 mL 12 08/10/2022 09/10/2023 DiscontinuedComment on above:SPRAY 1 SPRAY INTO EACH NOSTRIL IN THE MORNING AND BEFORE BEDTIME DIRECTEDbaclofen 20 mg oral tablet (20 sources)gamma-Aminobutyric Acid-ergic AgonistStart: 76-55-2928qnfm 0.5-1 tablets by mouth once dailybaclofen (LIORESAL) 20 mg tablet Indications: Migraine without aura and without status migrainosus,not intractable , Trapezius muscle spasm , Cervicalgia Take 0.5-1 tablets (10-20 mg total) by mouthnightly. 90 tablet 1 07/01/2024 ActiveStart: 2021 End: 39-90-1133ysys 10 mg by mouth three times dailybaclofen 10 mg, Oral, TID, Refills(s) 0 Start Date: 12/21/21 Status: Ordered Repeat number: 1Start: 28-04-4744pswqnfpu Oral, TID, Refills(s) 0 Start Date: 12/21/21 Status: Ordered Start: 08-24-2021 End: 86-13-9057aydh 1 tablet by mouth once daily at bedtimeComment on above:Take 10-20 mg by mouth at bedtime as needed.benzonatate 100 mg oral capsule (2 sources)Non-narcotic AntitussiveStart: 11-01-2020 End: 31-83-0616jcovdaatzge (TESSALON) capsule 100 mgbudesonide 0.25 mg/ml inhalation suspension (20 sources)CorticosteroidStart: 80-91-8091uromfwftrt (PULMICORT) 0.5 MG/2ML nebulizer suspension Take 2 mLs by nebulization 2 times daily 60 each 11 2021 ActiveStart: 10-31-2021 End: 27-31-4969uylj 2 mL by inhalation every twelve hoursbudesonide (PULMICORT) 0.5 mg/2 mL nebulizer solution Indications: 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 Inhale over 5-15 minutes 120 mL 5 10/31/2021 04/26/2022 Discontinued (Discontinued by another Health Care Provider)take 2 puff(s) by inhalation twice dailybudesonide (PULMICORT) 180 MCG/ACT AEPB inhaler Inhale 2 puffs into the lungs 2 times daily. 0 ActiveComment on above:Use 2 mL via nebulizer every 12 hours. Inhale over 5-15 psipdcx51 actuat budesonide 0.16 mg/actuat / formoterol fumarate 0.0045 mg/actuat metered dose inhaler (20 sources)Corticosteroid, beta2-Adrenergic AgonistStart: 69-67-1256vbfq 2 puff(s) by inhalation twice dailySYMBICORT 160-4.5 MCG/ACT AERO Inhale 2 puffs into the lungs 2 times daily 06/12/2022 ActiveStart: 06-12-2022 End: 33-71-1724zjpb 2 puff(s) by mouth twice dailySYMBICORT 160-4.5 mcg/actuation inhaler TAKE 2 PUFFS BY MOUTH TWICE A DAY 06/12/2022 07/01/2024 Discontinued End: 75-50-5741iyyn 2 puff(s) by inhalation in the morningbudesonide-formoterol (Symbicort) 160-4.5 MCG/ACT inhaler Inhale 2 puffs in the morning and 2 puffs before bedtime. Rinse mouth with water after use to reduce aftertaste and incidence of candidiasis.Do not swallow. 08/11/2024 Discontinued End: 37-65-6097xcpyyzdcua-formoterol (SYMBICORT) 160-4.5 mcg/actuation inhaler Inhale 2 Puffs as instructed as needed. 0 10/31/2021 Discontinuedtake 2 puff(s) by inhalation once dailybudesonide-formoterol (SYMBICORT) 160-4.5 MCG/ACT AERO Inhale 2 puffs into the lungs daily 0 Activebudesonide-formoterol (SYMBICORT) 160-4.5 mcg/actuation inhaler Inhale 2 Puffs as instructed as needed. 0 Active Comment on above:Inhale 2 Puffs as instructed as needed. calcium carbonate 500 mg chewable tablet (3 sources)take 2 tablets by mouth twice dailycalcium carbonate (TUMS) 500 MG chewable tablet Take 2 tablets by mouth 2 times daily Activecetirizine hydrochloride 10 mg oral tablet (20 sources)Histamine-1 Receptor AntagonistStart: 69-25-6108mmnfzjdvpr 10 mg Tab Refills(s) 0 Start Date: 12/16/21 Status: OrderedStart: 06-04-2021 End: 97-05-5503vgiv 1 tablet by mouth twice dailycetirizine (ZYRTEC) 10 MG tablet Take 1 tablet by mouth 2 times daily for 5 days 10 tablet 0 06/04/2021 06/09/2021 Active End: 05-35-4699Urzfzxekog (ZYRTEC) 10 mg cap Take by mouth. 0 06/10/2021 DiscontinuedComment on above:Take by mouth.Take 10 mg by mouth as needed. cholecalciferol 0.125 mg oral capsule (20 sources)Vitamin DStart: 05-19-2024 End: 76-92-8437kjfw 1 capsule by mouth once dailycholecalciferol (Vitamin D-3) 125 MCG (5000 UT) capsule Indications: Vitamin D deficiency TAKE 1 CAPSULE (125 MCG) BY MOUTH DAILY 30 capsule 3 09/16/2024 ActiveStart: 63-07-9263guox 1 tablet by mouth once dailyVITAMIN D-3 125 mcg (5,000 unit) tab Take 5,000 Units by mouth once daily. 04/29/2021 Activetake 1 capsule by mouth in the morning cholecalciferol (Vitamin D-3) 125 MCG (5000 UT) capsule Take 5,000 Units by mouth in the morning. ActiveCholecalciferol (VITAMIN D3) 50 MCG (2000 UT) CAPS Take by mouth 0 ActiveComment on above:Take 5,000 Units by mouth once daily. cholecalciferol, vitamin D3, (VITAMIN D3 ORAL) (20 sources)cholecalciferol, vitamin D3, (VITAMIN D3 ORAL) Take 1 capsule by mouth. Activecholecalciferol, vitamin D3, (VITAMIN D3 ORAL) Take 1 capsule by mouth. 0 Activeciprofloxacin 250 mg oral tablet (2 sources)Quinolone AntimicrobialStart: 08-91-4179oduo 1 tablet by mouth once dailyCipro 250 mg Tab See Instructions, 1 tab po day prior to procedure. 1 tab po following procedure., # 2 tab(s), Refills(s) 0, Pharmacy: [facility]/pharmacy #[id number], 162, cm, 12/21/21 8:50:00 EST, Height/LengthDosing, 99, kg, 12/21/21 8:50:00 EST, Weight Dosing Start Date: 12/21/21 Status: OrderedCPAP/BIPAP/OTHER (6 sources)CPAP/BIPAP/OTHER Type .CPAPSettings into a note to see current settings/supplies/DME information. ActiveCPAP/BIPAP/OTHER Type .CPAPSettings into a note to see current settings/supplies/DME information. 0ActiveComment on above:Type .CPAPSettings into a note to see current settings/supplies/DME information.Cymbalta 60 mg Cap-DR (2 sources)Start: 25-01-7286ciaj 1 capsule by mouth once dailyCymbalta 60 mg Cap-DR 60 mg, Oral, Daily, Refills(s) 0 Start Date: 01/04/23 Status: Ordered Repeat number: 1Start: 56-48-5298ryvp 1 capsule by mouth once dailyCymbalta 60 mg Cap-DR 60 mg, Oral, Daily, Refills(s) 0 Start Date: 01/04/23 Status: Ordered 12 hr dextromethorphan hydrobromide 30 mg / guaiFENesin 600 mg extended release oral tablet (1 source)Uncompetitive G-jzzhiw-U-aspartate Receptor Antagonist, Sigma-1 Agonisttake 30-600 mg by mouth once as neededdextromethorphan-guaiFENesin (MUCINEX DM) 30-600 MG per extended release tablet Take 1 tablet by mouth every 12 hours as needed 0 Activedoxycycline hyclate 100 mg oral tablet (19 sources)Tetracycline-class DrugStart: 09-25-2024 End: 87-86-1654oqox 1 tablet by mouth twice dailydoxycycline (VIBRA-TABS) 100 mg tablet Take 100 mg by mouth two times a day. 09/25/2024 10/05/2024 ActiveStart: 12-24-2023 End: 05-98-4539ktew 1 capsule by mouth twice dailyDoxycycline Hyclate 100 mg capsule Discontinued 100 MG PO Twice daily 14 December 24, 2023 1:00am February 20, 2024 1:47pmStart: 06-06-2021 End: 50-63-6540wvsb 1 capsule by mouth twice dailydoxycycline monohydrate (MONODOX) 100 mg capsule TAKE 1 CAPSULE BY MOUTH TWICE A DAY FOR 10 DAYS 0 0 06/06/2021 07/01/2021 DiscontinuedComment on above:TAKE 1 CAPSULE BY MOUTH TWICE A DAY FOR 10 DAYSDULoxetine 60 mg delayed release oral capsule (20 sources)Serotonin and Norepinephrine Reuptake InhibitorStart: 15-17-3740clbi 1 capsule by mouth once dailyDULoxetine (CYMBALTA) 60 mg capsule Take 1 capsule (60 mg total) by mouth nightly. 12/26/2022 ActiveStart: 10-98-4834lyyz 1 capsule by mouth once dailyDULoxetine (CYMBALTA) 30 mg capsule TAKE 1 CAPSULE BY MOUTH EVERY DAY DO NOT CRUSH OR CHEW 01/28/2022 ActiveStart: 68-18-5661Ebuqgpjq Oral, Refills(s) 0 Start Date: 12/21/21 Status: Orderedtake 2 capsules by mouth once dailyDULoxetine (CYMBALTA) 30 MG extended release capsule Take 2 capsules by mouth daily ActiveComment on above:TAKE 1 CAPSULE BY MOUTH EVERY DAY DO NOT CRUSH OR [id number] 0.3 ml EPINEPHrine 1 mg/ml auto-injector (20 sources)alpha-Adrenergic Agonist, beta-Adrenergic Agonist, Catecholamine Start: 29-78-2623BEKXIEGajez (Epipen) 0.3 MG/0.3ML injection syringe 0.3 MG (0.3 ML) INTRAMUSCULARLY ONCE NEEDED FOR ANAPHYLAXIS FOR 2 DOSES 07/02/2023 Active Start: 11-20-6815HyfNla 2-Erma as directed, Refills(s) 0 Start Date: 12/22/22 Status: Ordered Repeat number: 1Start: 25-18-4826EtwYvh 2-Erma as directed, Refills(s) 0 Start Date: 12/22/22 Status: OrderedStart: 09-05-2021 End: 92-32-1605HWLNJJGiyib PF 1 MG/ML injectionStart: 65-57-8507QMDTXBGvjtc (EPIPEN) 0.3 mg/0.3 mL auto-injector 06/05/2021 ActiveStart: 06-05-2021 EPINEPHrine (EPIPEN) 0.3 mg/0.3 mL auto-injector INJECT 0.3 MLS INTO THE MUSCLE ONCE NEEDED (SEVERE ALLERGIC REACTION) 06/05/2021 ActiveStart: 06-04-2021 EPINEPHrine (EPIPEN 2-ERMA) 0.3 MG/0.3ML SOAJ injection Inject 0.3 mLs into the muscle once as needed (severe allergic reaction) 2 each 1 06/04/2021 Active EPINEPHrine 0.1 mg/0.1 mL AutoInjector as needed. ActiveEPINEPHrine (EPIPEN 2- ERMA IJ) Inject as directed ActiveEPINEPHrine (EPIPEN 2-ERMA IJ) Inject as directed. ActiveEPINEPHrine (EPIPEN 2-ERMA IJ) Inject as directed. 0 Active End: 64-78-1083SQPWEKKtung (EPIPEN IJ) Inject as directed 0 06/04/2021 Discontinued (LIST CLEANUP)EPINEPHrine (EPIPEN IJ) Inject as directed 0 Active Comment on above:as needed. famotidine 20 mg oral tablet (20 sources)Histamine-2 Receptor AntagonistStart: 06-04-2021 End: 22-85-4533fqjw 1 tablet by mouth twice dailyfamotidine (PEPCID) 20 MG tablet Take 1 tablet by mouth 2 times daily for 5 days 10 tablet 0 06/04/2021 ActiveStart: 74-31-1201hunivyoihm (PEPCID) injection 20 mgStart: 08-22-2020 End: 21-83-1517dkoq 1 tablet by mouth twice dailyfamotidine (PEPCID) 40 mg tablet Take 40 mg by mouth twice daily. 0 08/22/2020 06/10/2021 Discontinued Comment on above:Take 40 mg by mouth twice daily.Take 40 mg by mouth as needed. FLUoxetine 20 mg oral capsule (1 source)Serotonin Reuptake Inhibitortake 2 capsules by mouth once daily FLUoxetine (PROZAC) 20 MG capsule Take 40 mg by mouth daily 0 Activefluticasone propionate 0.05 mg/actuat metered dose nasal spray (20 sources)CorticosteroidStart: 69-34-3449cpdq 1 spray(s) nasal route once dailyStart: 27-42-9378Bykcsqy Allergy Relief 50 mcg/inh nasal spray Daily, Refills(s) 0 Start Date: 12/16/21 Status: Ordered Repeat number: 1Start: 07-14-2021 End: 27-32-3640oxyg 1 spray(s) nasal route twice dailyfluticasone (FLONASE) 50 mcg/actuation nasal spray Use 1 [place] in each nostril twice daily. 3 Each 07/14/2021 10/19/2021 Activetake 2 spray(s) nasal route once dailyfluticasone (VERAMYST) 27.5 mcg/actuation nasal spray Administer 2 sprays into each nostril once daily. Activetake 2 spray(s) nasal route in the morningfluticasone (Flonase Sensimist) 27.5 MCG/SPRAY nasal spray Administer 2 sprays into each nostril in the morning. ActiveFluticasone Furoate (FLONASE SENSIMIST) 27.5 mcg/actuation nasal spray 1 spray in each nostril ActiveComment on above:Use 1 [place] in each nostril twice daily.1 spray in each fqorepd589 actuat fluticasone propionate 0.115 mg/actuat / salmeterol 0.021 mg/actuat metered dose inhaler (1 source)Corticosteroid, beta2-Adrenergic AgonistStart: 30-95-4968ncrb 2 puff(s) by inhalation in the morningfluticasone-salmeterol (Advair) 115-21 MCG/ACT inhaler Indications: Moderate persistent asthma without complication (CMS/HCC) Inhale 2 puffs in the morning and 2 puffs before bedtime. Rinse mouth with water after use to reduce aftertaste and incidence of candidiasis. Do not swallow.. 36 g 3 03/14/2023 ActiveStart: 50-41-6879pyvb 2 puff(s) by inhalation in the morningfluticasone-salmeterol (Advair) 115-21 MCG/ACT inhaler Indications: Moderate persistent asthma without complication (CMS/HCC) Inhale 2 puffs in the morning and 2 puffs before bedtime. Rinse mouth with water after use to reduce aftertaste and incidence of candidiasis. Do not swallow.. 36 g 3 03/14/2023 Active1.5 ml fremanezumab-vfrm 150 mg/ml auto-injector (20 sources)Start: 01-02-2024 End: 75-18-9422zifyeauqjnxz-vfrm (AJOVY SYRINGE) 225 mg/1.5 mL Indications: Migraine without aura and without status migrainosus, not intractable Inject 4.5 mL (675 mg total) under the skin once for 1 dose. 4.5 mL 01/02/2024 01/02/2024 ActiveStart: 34-27-3925Sarzw: 01-17-2022 End: 48-37-4398zayeiqtdryhz-vfrm (AJOVY 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) 225 mg/1.5 mL Indications: Migraine without aura and withoutstatus migrainosus, not intractable Inject 1.5 mL (225 mg total) under the skin every 28 days. 4.5 mL 3 08/11/2024 ActiveStart: 72-73-9650iixzlr 1 mg by subcutaneous injection every monthAjovy mg, SubCutaneous, qMonth, Refills(s) 0 Start Date: 12/21/21 Status: OrderedStart: 66-70-3110gslknm 1.5 mL by subcutaneous injection every month in the morning fremanezumab-vfrm subcutaneus auto-injector 225 mg/1.5 mL (AJOVY) Indications: Chronic migraine without aura, intractable, without status migrainosus Inject 1.5 mL subcutaneously once every month. Donot shake. 1.5 mL 11 06/12/2022 8:34 AM EDT 10/19/2021 ActiveComment on above:Inject 1.5 mL subcutaneously once every month. Do not shake.furosemide 20 mg oral tablet (20 sources)Loop DiureticStart: 39-28-4590nivq 1 tablet by mouth once daily as needed for edemafurosemide (Lasix) 20 MG tablet Indications: Edema of both legs Take 1 tablet (20 mg) by mouth Daily as needed (Edema) 30 tablet 3 08/11/2024 Active End: 06-58-5690wozmqhwyid (LASIX) 40 mg tablet Take 40 mg by mouth. 0 06/10/2021 DiscontinuedComment on above:Take 40 mg by mouth.hydrocortisone 25 mg/ml topical cream (17 sources)CorticosteroidStart: 20-13-0762xdbsapwfhinwdl 2.5 % cream Indications: Other specified dermatitis Apply topically 2 (two) times a day as needed (Rash) Apply thin layer to affected areas bid prn for flares 30 g 3 07/08/2024 Activeketorolac tromethamine 10 mg oral tablet (11 sources)Nonsteroidal Anti-inflammatory Drug, Cyclooxygenase InhibitorStart: 50-52-2395exmb 1 tablet by mouth every six hours as needed for painketorolac (TORADOL) 10 mg tablet Take 1 tablet (10 mg total) by mouth every 6 (six) hours as neededfor pain. 20 tablet 05/06/2024 ActiveStart: 08-17-2020 End: 82-79-4822rxns 1 tablet by mouth four times daily as neededkeTORolac (TORADOL) 10 mg tablet TAKE 1 TABLET BY MOUTH FOUR TIMES A DAY NEEDED 0 08/17/2020 06/10/2021 DiscontinuedStart: 06-13-2020 End: 96-65-1526alvbguuzc (TORADOL) injection 30 mgComment on above:TAKE 1 TABLET BY MOUTH FOUR TIMES A DAY NEEDEDlamoTRIgine 150 mg oral tablet (20 sources)Mood Stabilizer, Anti-epileptic AgentStart: 44-28-3406iuje 1 tablet by mouth at bedtimelamotrigine 150 mg Tab 150 mg = 1 tab(s), Oral, Bedtime, Refills(s) 0 Start Date: 12/16/21 Status: Ordered Repeat number: 1Comment on above:Take 150 mg by mouth daily at bedtime. levalbuterol 2.5 mg/ml inhalation solution (20 sources)beta2-Adrenergic AgonistStart: 12-11-1426gfhbyibjysms (Xopenex Concentrate) 1.25 MG/0.5ML nebulizer solution Indications: Moderate persistent asthma without complication (HCC) Take 0.5 mL (1.25 mg) by nebulization every 4 (four) hours if needed for wheezing or shortness of breath 60 each 2 02/27/2024 ActiveStart: 53-94-0746wmuw 1 puff(s) by inhalation every four hours as needed Start: 99-78-5034vbgu 2 puff(s) by inhalation every four hours for wheezing levalbuterol (Xopenex HFA) 45 MCG/ACT inhaler Indications: Moderate persistent asthma without complication (HCC) Inhale 2 puffs every 4 (four) hours if needed for wheezing or shortness of breath 15 g3 02/11/2024 ActiveStart: 2021 Xopenex NEB, TID, Refills(s) 0 Start Date: 12/21/21 Status: OrderedStart: 01-80-2826wumx 1-2 puff(s) by inhalation every four hours as needed for wheezing levalbuterol tartrate HFA 45 mcg/actuation inhaler Indications: Post-acute sequelae of COVID-19 (PASC) , Moderate persistent asthma without complication (HCC) Inhale 1-2 Puffs as instructed every 4 hours as needed for wheezing/shortness of breath. 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 TAKE 1 TABLET (100 MCG TOTAL) BY MOUTH IN THE MORNING 90 tablet 3 05/01/2024 ActiveStart: 06-95-1494ypwz 0.5 tablet by mouth every weeklevothyroxine (SYNTHROID) 112 MCG tablet Take 0.5 tablets by mouth once a week Take on Wednesdays 30 tablet 3 01/18/2022 ActiveStart: 68-66-8300flvp 1 tablet by mouth once dailylevothyroxine (SYNTHROID) 112 MCG tablet Take 1 tablet by mouth daily 30 tablet 3 01/12/2022 ActiveStart: 82-72-5661mnuy 1 ug by mouth once dailySynthroid 112 mcg Tab mcg tab(s), Oral, Daily, Refills(s) 0 Start Date: 12/16/21 Status: Ordered Repeat number: 1take 1.5 tablets by mouth once dailylevothyroxine (SYNTHROID) 100 mcg tablet Take 100 mcg by mouth daily before breakfast. Takes 1.5 tablets on Wednesdays Activetake 1.5 tablets by mouth once dailylevothyroxine (SYNTHROID) 112 mcg tablet Take 112 mcg by mouth daily before breakfast. Takes 1.5 tablets on Wednesdays 0 ActiveLevothyroxine Sodium 75 MCG CAPS Take 112 mcg by mouth daily 0 ActiveComment on above:Take 112 mcg by mouth daily before breakfast. Takes 1.5 tablets on Wednesdays Take 100 mcg by mouth daily before breakfast. 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 90 tablet 2 03/31/2024 12/08/2024 DiscontinuedLORazepam 0.5 mg oral tablet (20 sources)BenzodiazepineStart: 06-28-2021 End: 65-41-9914mkgo 1 tablet by mouth at bedtimeLORazepam (ATIVAN) 0.5 MG tablet TAKE 1 TABLET BY MOUTH AT BEDTIME 0 06/28/2021 ActiveStart: 06-04-2021 End: 97-30-4029TPJiqaryu (ATIVAN) injection 1 mg End: 41-22-3259rfyr 1 tablet by mouth twice daily as needed for anxietyLORazepam (ATIVAN) 1 MG tablet Take 1 mg by mouth 2 times daily as needed for Anxiety. 0 05/20/2021iscontinued (LIST CLEANUP)Comment on above:Take 0.5 mg by mouth twice daily as needed.magnesium gluconate 500 mg oral tablet (20 sources)magnesium gluconate (MAGONATE) 500 mg tablet tablet Take 27 mg by mouth in the morning and 27 mg before bedtime. 600 mg. Activetake 1 tablet by mouth in the morningmagnesium, as gluconate, (Magonate) 500 (27 Mg) MG tablet Take 27 mg by mouth in the morning and 27mg before bedtime. Activemagnesium glycinate 100 mg oral tablet (1 source)Magnesium Glycinate 100 MG CAPS Take by mouth ActiveMagnesium Glycinate 100 mg magnesium capsule (2 sources)Start: 01-85-2014hgsqrwpnl glycinate 100 mg magnesium capsule (1 source)magnesium glycinate 100 mg magnesium capsule Take 200 mg by mouth as directed. Activemagnesium oxide 400 mg oral tablet (3 sources)Start: 90-91-5748laef 1 tablet by mouth once dailymagnesium oxide 400 mg Tab 400 mg = 1 tab(s), Oral, Daily, Refills(s) 0 Start Date: 01/04/23 Status: Ordered Repeat number: 1magnesium oxide (Mag-Ox) 400 mg tablet 400 mg in the morning and 400 mg before bedtime. 0 Activemecobalamin 1 mg sublingual tablet (20 sources)Start: 79-08-0793kixykxazahp, vitamin B12, 1,000 mcg ODT once daily. 04/05/2021 ActiveComment on above:once daily.methocarbamol 500 mg oral tablet (2 sources)Muscle RelaxantStart: 17-92-3984uqvn 1-2 tablets by mouth four times daily as needed for painmethocarbamol (ROBAXIN) 500 MG tablet 1 to 2 pills by mouth 4 times daily as needed muscle pain/spasm 56 tablet 1 06/21/2021 Active2 ml metoclopramide 5 mg/ml prefilled syringe (5 sources)Dopamine-2 Receptor AntagonistStart: 19-68-8396zoyxngmbzhmpdq (REGLAN) injection 10 mgStart: 04-16-2021 End: 66-76-1258tuso 1 tablet by mouth three times daily as needed for vomiting metoclopramide (REGLAN) 10 MG tablet Take 1 tablet by mouth 3 times daily as needed (vomiting) 12 tablet 0 04/16/2021 Activemontelukast 10 mg oral tablet (20 sources)Leukotriene Receptor AntagonistStart: 86-16-1479vnmb 1 mg by mouth once dailySingulair 10 mg Tab mg tab(s), Oral, Daily, Refills(s) 0 Start Date: 12/16/21 Status: Ordered Repeat number: 1Comment on above:Take 10 mg by mouth once daily. Nurtec ODT (2 sources)Start: 30-46-7736pqis 75 mg by mouth onceNurtec ODT 75 mg, Oral, Once, Refills(s) 0 Start Date: 01/04/23 Status: Ordered Repeat number: 1Start: 40-93-3088shmc 75 mg by mouth onceNurtec ODT 75 mg, Oral, Once, Refills(s) 0 Start Date: 01/04/23 Status: Wqmqaoz28 actuat olodaterol 0.0025 mg/actuat / tiotropium 0.0025 mg/actuat inhalation spray (1 source)Anticholinergic, beta2-Adrenergic AgonistStart: 13-96-8023omnssguxvo- olodaterol (STIOLTO RESPIMAT) 2.5-2.5 MCG/ACT AERS Inhale 2 puffs into the lungs daily 1each 6 04/17/2024 Activeondansetron 4 mg disintegrating oral tablet (20 sources)Serotonin-3 Receptor AntagonistStart: 82-61-6154tpdsiwtvuuc ODT (ZOFRAN ODT) 4 mg disintegrating tablet 01/18/2022 ActiveStart: 04-16-2021 End: 93-89-9688ycrfdjhfobc (ZOFRAN) injection 4 mgStart: 04-16-2021 End: 50-65-8187kufmqwwaier (ZOFRAN) 4 MG/2ML injection End: 91-82-2297jfwekehrsvw orally disintegrating (ZOFRAN ODT) 4 mg disintegrating tablet ondansetron 4 mg disintegrating tablet 0 06/10/2021 Discontinued (Discontinued by Patient)take 1 tablet by mouth every eight hours as needed for nauseaondansetron (ZOFRAN) 4 MG tablet Take 4 mg by mouth every 8 hours as needed for Nausea or Vomiting 0 ActiveComment on above:ondansetron 4 mg disintegrating tabletperflutren lipid microspheres 1.3 mL in NaCl (PF) 0.9% 10 mL injection (DEFINITY) (20 sources)Start: 07-21-2021 End: 73-13-4976kareflmjru lipid microspheres 1.3 mL in NaCl (PF) 0.9% 10 mL injection (DEFINITY)potassium chloride 10 meq extended release oral tablet (5 sources)Start: 32-93-9668xgymfwrgb chloride (K-TAB,KLOR-CON) 10 MEQ CR tablet Take 1 tablet (10 mEq total) by mouth in the morning. 09/30/2024 Active prasterone 10 mg oral capsule (20 sources)Start: 46-30-3259wqvq 5 mg by mouth once dailyDHEA 10 MG capsule Indications: Postmenopausal HRT (hormone replacement therapy) Take 5 mg by mouth Daily 1 capsule 2 12/01/2024 ActiveStart: 29-99-6238nmks 5 mg by mouth once dailyDHEA 10 MG capsule Indications: Postmenopausal HRT (hormone replacement therapy) Take 5 mg by mouthDaily 1 capsule 2 12/01/2024 ActiveStart: 12-24-2023 take 1 tablet by mouth once daily End: 07-26-7339RCCJ 10 MG capsule Take 5 mg by mouth 12/01/2024 Discontinued (Reorder)predniSONE 50 mg oral tablet (20 sources)Start: 09-25-2024 End: 74-49-5470aiyi 50 mg by mouth once dailypredniSONE (DELTASONE) 50 mg Take 50 mg by mouth once daily. 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 Do all this for 5 days. With breakfast and lunch. 20 tablet 07/01/2024 07/06/2024 ActiveStart: 02-27-2024 End: 34-03-9231ucef 6 tablets by mouth once daily, then take 4 tablets by mouth once daily, then take 2 tablets bymouth once daily, then take 1 tablet by mouth once dailypredniSONE (Deltasone) 10 MG tablet Indications: COVID-19 6 PO daily x 3 days, 4 PO daily x 3 days,2 PO daily x 3 days, 1 PO daily x 3 days 39 tablet 02/27/2024 08/11/2024 DiscontinuedStart: 12-24-2023 End: 52-98-6444kmra 2 tablets by mouth once dailyPrednisone 20 mg tablet Discontinued 40 MG PO Daily 6 December 24, 2023 1:00am February 20, 2024 1:48pmStart: 51-09-7546glzbnySGFK (DELTASONE) 10 MG tablet 4 tabs daily for 3 days, 3 tabs daily for 3 days, 2 tabs daily for 3 days, 1 tab daily for 3 days 30 tablet 0 01/11/2022 ActiveStart: 10-07-2021 End: 34-03-3642gcgn 50 mg by mouth once dailypredniSONE (DELTASONE) 50 mg Take 50 mg by mouth once daily. 0 10/07/2021 11/19/2021 DiscontinuedStart: 08-24-2021 take 2 tablets by mouth in the morning, then take 2 tablets by mouth at lunch predniSONE (DELTASONE) 20 MG tablet TAKE 2 TABLETS (40 MG TOTAL) BY MOUTH IN THE MORNING with breakfast AND 2 TABLETS (40 MG TOTAL) with lunch. DO ALL THIS FOR 5 DAYS. 0 08/24/2021 ActiveStart: 06-04-2021 End: 31-96-1415sfqb 4 tablets by mouth once dailypredniSONE (DELTASONE) 10 MG tablet Take 4 tablets by mouth daily for 5 days 20 tablet 0 /06/2021 ActiveComment on above:Take 50 mg by mouth once daily.pyridostigmine bromide 180 mg extended release oral tablet (20 sources)Start: 12-24-2023 End: 38-09-4712wyaa 1 tablet by mouth twice dailyStart: 10-10-2023 End: 01-93-3553zmsk 1 tablet by mouth three times dailypyridostigmine (MESTINON) 60 mg tablet Take 1 tablet (60 mg total) by mouth 3 (three) times a day. 0 10/10/2023 05/23/2025 ActiveStart: 24-92-7090pnng 3 tablets by mouth twice daily pyridostigmine (MESTINON) 60 mg tablet Take 180 mg by mouth two times a day. 07/21/2022 ActiveStart: 07-21-2022 End: 77-73-6503ixzmyecykykskp (MESTINON) 60 mg tablet Take 1 tablet (60 mg total) by mouth. 07/21/2022 07/21/2023 ActiveComment on above:Take by mouth. rimegepant 75 mg disintegrating oral tablet (20 sources)Start: 09-28-2020 End: 85-98-2616hmfxdyojka (NURTEC ODT) 75 mg tablet,disintegrating Dissolve 1 tablet on tongue as needed (migraine). 8 tablet 11 06/29/2022 07/01/2024 DiscontinuedComment on above:Take 1 tablet by mouth once daily as needed.Take 1 tablet by mouth once daily as needed. No more than 1 dose in 24 hours.Rimegepant Sulfate (NURTEC PO) (1 source)Rimegepant Sulfate (NURTEC PO) Take by mouth. 0 ActivesAXagliptin 5 mg oral tablet (20 sources)Dipeptidyl Peptidase 4 InhibitorStart: 02-11-2024 End: 40-23-7809skyg 1 tablet by mouth once dailysAXagliptin (Onglyza) 5 MG tablet Indications: Type 2 diabetes mellitus with hyperglycemia, withoutlong- term current use of insulin (HCC) TAKE 1 TABLET BY MOUTH EVERY DAY 90 tablet 3 05/22/2024 Activesertraline 100 mg oral tablet (20 sources)Serotonin Reuptake InhibitorStart: 38-86-9844ureb 1 tablet by mouth once dailysertraline (Zoloft) 100 MG tablet Take 100 mg by mouth Daily 02/24/2023 ActiveStart: 96-95-1099hddr 2 tablets by mouth once dailysertraline 100 mg Tab 200 mg = 2 tab(s), Oral, Daily, Refills(s) 0 Start Date: 12/16/21 Status: Ordered Repeat number: 1take 0.5 tablet by mouth in the morning sertraline (ZOLOFT) 100 mg tablet Take 0.5 tablets (50 mg total) by mouth in the morning. Activesertraline (Zoloft) 50 MG tablet Take by mouth Daily. 0 Active sertraline (ZOLOFT) 100 MG tablet Take 150 mg by mouth daily 0 ActiveComment on above:Take 200 mg by mouth daily at bedtime. 125 ml sodium chloride 9 mg/ml prefilled syringe (20 sources)Start: 07-21-2021 End: 79-48-8539yvektr chloride 0.9 % (flush) 10 mL (BD POSIFLUSH)Start: 05-20-2021 End: .9 % sodium chloride bolusStart: 04-16-2021 End: .9 % sodium chloride bolussucralfate 1000 mg oral tablet (2 sources)Aluminum ComplexStart: 59-89-7277Ktymeavc 1 gram Tab 1 gm = 1 tab(s), Oral, QIDACHS, prescribed 01/31/23 after EGD, Refills(s) 0 Start Date: 02/01/23 Status: Ordered Repeat number: 1Symbicort 160/4.5 inhalation aerosol with adapter (1 source)Start: 78-20-7765rvqf 2 puff(s) by inhalation twice dailySymbicort 160/4.5 inhalation aerosol with adapter 2 puff(s), Inhalation, BID, Refill(s) 0 Start Date: 12/22/22 Status: Orderedtamsulosin hydrochloride 0.4 mg oral capsule (3 sources)alpha-Adrenergic BlockerStart: 26-06-0083owwo 1-2 tablets by mouth once dailytamsulosin 0.4 mg Cap See Instructions, take 1-2 tabs po daily when you feel like you are passing astone, # 30 tab(s), Refills(s) 1, Pharmacy: [facility]/pharmacy #[id number], 162, cm, 09/05/22 8:28:00 EDT, Height/Length Dosing, 99, kg, 09/05/22 8:28:00 EDT, Weight Dosing Start Date: 09/05/22 Status: Ordered Quantity: 30.0 Unit: tab(s) Repeat number: 2traZODone hydrochloride 100 mg oral tablet (9 sources)Serotonin Reuptake Inhibitor End: 27-52-2293ltxv 1 tablet by mouth once dailytraZODone (DESYREL) 100 MG tablet Take 100 mg by mouth daily 0 ActiveComment on above:Take 100 mg by mouth as needed. triamcinolone acetonide 1 mg/ml topical cream (20 sources)CorticosteroidStart: 07-10-2023 End: 31-22-8017ukafeacoeghbd (Kenalog) 0.1 % cream Indications: Other specified dermatitis Apply to affected areas, up to twice a day when flared, do not use one the face, groin, or underarms, 30 day supply 80 g Active ubrogepant 100 mg oral tablet (20 sources)Start: 65-49-8836jdpw 50 mg by mouth onceUbrelvy 50 mg, Oral, Once, Refills(s) 0 Start Date: 01/04/23 Status: Ordered Repeat number: 1Start: 60-61-2305xgol 1 tablet by mouth every two hours as needed, then take 2 tablets by mouth every twenty-four hours as neededUBRELVY 100 mg tablet TAKE 1 TABLET BY MOUTH AT ONSET OF MIGRAINE. MAY REPEAT IN 2 HOURS NEEDED.MAX 2 TABLET IN 24 HOURS 08/25/2021 ActiveStart: 08-24-2021 End: 67-08-8789ntyg 1 tablet by mouth once as neededUBRELVY 100 mg tablet Take 100 mg by mouth once as needed (migraine) for up to 1 dose. 16 tablet 12 12/06/2023 ActiveUbrogepant (Ubrelvy) 50 MG tablet Take by mouth. 0 Active Comment on above:TAKE 1 TABLET BY MOUTH AT ONSET OF MIGRAINE. MAY REPEAT IN 2 HOURS NEEDED. MAX 2 TABLET IN 24 HOURSvitamin b12 1 mg sublingual tablet (20 sources)Vitamin D94Dpchj: 68-60-0290iycs 1 tablet under the tongue in the morningcyanocobalamin (VITAMIN B12) 1,000 mcg tablet, sublingual Place 1 tablet (1,000 mcg total) under the tongue in the morning. 30 tablet 11 01/04/2023 Activetake 2 tablets by mouth once dailycyanocobalamin (Vitamin B-12) 500 MCG tablet Take 1,000 mcg by mouth Daily ActiveVitamin B12, Folate, and Acetylcysteine oral tablet (4 sources)Start: 91-35-9441zlyq 1 tablet by mouth once dailyVitamin B12, Folate, and Acetylcysteine oral tablet tab(s), Oral, Daily, Refill(s) 0 Start Date: 12/16/21 Status: OrderedVitamin D3 (6 sources)Start: 22-80-5592Qhunwul D3 Refills(s) 0 Start Date: 12/16/21 Status: Ordered Repeat number: 1Start: 44-09-6557Maiwyhx D3 Refills(s) 0 Start Date: 12/16/21 Status: Orderedzolpidem tartrate 5 mg oral tablet (20 sources)gamma-Aminobutyric Acid-ergic AgonistStart: 59-02-2946gmerpxhe (AMBIEN) 5 MG tablet Take 2.5 mg by mouth as needed. 0 05/19/2021 ActiveStart: 05-19-2021 End: 71-40-0958tjomadqk (AMBIEN) 5 mg tablet Take 5 mg by mouth as needed. 0 05/19/2021 07/21/2021 Discontinued (Discontinued by another Health Care Provider)Comment on above:Take 5 mg by mouth as needed.zonisamide 100 mg oral capsule (20 sources)Anti-epileptic AgentStart: 07-05-2023 End: 02-31-2562drrs 2 capsules by mouth in the eveningzonisamide (ZONEGRAN) 100 mg capsule Indications: Migraine without aura and without status migrainosus, not intractable Take 2 capsules (200 mg total) by mouth in the evening. 180 capsule 1 09/15/2024 ActiveStart: 10-03-2022 End: 32-85-6695utdc 2 capsules by mouth once daily at dinnerzonisamide (ZONEGRAN) 100 mg capsule Take 2 capsules (200 mg total) by mouth Daily before evening meal. 180 capsule 1 10/03/2022 02/06/2023 DiscontinuedStart: 11-17-2020 End: 49-41-9872eiqd 1 capsule by mouth once dailytake 2 capsules by mouth once dailyzonisamide (ZONEGRAN) 25 MG capsule Take 50 mg by mouth daily 0 Active Comment on above:Take 1 capsule by mouth once daily. Completed/Discontinued Medications MedicationDrug Class(es)DatesSig (Normalized)Sig (Original)[id number] 200 actuat albuterol 0.09 mg/actuat metered dose inhaler (20 sources)beta2-Adrenergic AgonistStart: 12-24-2023 End: 48-13-0747Ijbutlrqg Sulfate 90 mcg/actuation HFA aerosol inhaler Discontinued INHALATION December 24, 2023 1:00am February 20, 2024 1:46pm FreeTextSig: Inhalation; Note: Source Status: Taking; Qty: 8.5 Unspecified; Provider: Diego Murray ( )Start: 13-42-2003pmaq 1 dose by inhalation once4 puff, Inhalation, ONCE, 1 dose, On Sun12/19/23 at 0800, Initiate RT Bronchodilator Protocol: NoStart: 38-00-1142klhnqutzp (PROVENTIL HFA;VENTOLIN HFA) 90 mcg/actuation inhaler as needed. 01/11/2022 ActiveStart: 23-78-4261jnsp 1 puff(s) by inhalation every six hours as needed for wheezing albuterol sulfate HFA (PROVENTIL;VENTOLIN;PROAIR) 108 (90 Base) MCG/ACT inhaler Inhale 1 puff into the lungs every 6 hours as needed for Wheezing 18 g 3 01/11/2022 ActiveStart: 01-11-2022 End: 59-97-4855xxekisbny (PROVENTIL HFA;VENTOLIN HFA) 90 mcg/actuation inhaler every 4 (four) hours. 0 01/11/2022 ActiveStart: 13-83-0948drumlkfbv (PROVENTIL HFA;VENTOLIN HFA) 90 mcg/actuation inhaler every 4 (four) hours. 01/11/2022 Act iveStart: 79-52-7528mlhjbhrrt (PROVENTIL) (2.5 MG/3ML) 0.083% nebulizer solution Take 3 mLs by nebulization every 6 hours as needed for Wheezing 120 each 3 01/11/2022 ActiveStart: 97-68-1367dnbxkxcew (PROVENTIL) nebulizer solution 2.5 mgStart: 11-01-2020 End: 34-29-2515cysxmxejf (PROVENTIL) (2.5 MG/3ML) 0.083% nebulizer solution Take 3 mLs by nebulization every 6 hours as needed for Wheezing 30 each 11/01/2020 05/20/2021 Discontinued (LIST CLEANUP)take 1 tablet by mouth in the morning, then take 1 tablet by mouth in the evening, then take 1 tablet by mouth at bedtimealbuterol (Proventil) 2 MG tablet Take 2 mg by mouth in the morning and 2 mg in the evening and 2 mg before bedtime. 0 Active End: 12-03-7481KFECNNPBN INHALATION Inhale as instructed as needed. 0 10/31/2021 Discontinuedtake 2 puff(s) by inhalation every six hours as needed for wheezing albuterol sulfate HFA (PROVENTIL;VENTOLIN;PROAIR) 108 (90 Base) MCG/ACT inhaler Inhale 2 puffs intothe lungs every 6 hours as needed for Wheezing 0 Active ALBUTEROL INHALATION Inhale as instructed as needed. 0 ActiveComment on above: Inhale as instructed as needed.albuterol 0.833 mg/ml / ipratropium bromide 0.167 mg/ml inhalation solution (1 source)Anticholinergic, beta2-Adrenergic AgonistStart: 09-05-2021 End: 93-73-3086gnbkzcaaszw-albuterol (DUONEB) nebulizer solution 1 ampuleStart: 09-05-2021 End: 44-75-7860syfsgkksrcm-albuterol (DUONEB) nebulizer solution 1 ampule ascorbic acid 100 mg oral tablet (20 sources)Vitamin Ctake 1 tablet by mouth once dailyAscorbic Acid 100 mg tablet Take 100 mg by mouth once daily. 0 ActiveComment on above:Take 100 mg by mouth once daily.ASCORBIC ACID, VITAMIN C, ORAL (15 sources) End: 83-16-5118fllv 100 mg by mouth once dailyASCORBIC ACID, VITAMIN C, ORAL Take 100 mg by mouth once daily. With zinc 0 10/02/2022 Discontinuedtake 100 mg by mouth once dailyASCORBIC ACID, VITAMIN C, ORAL Take 100 mg by mouth once daily. With zinc 0 ActiveComment on above:Take 100 mg by mouth once daily. With zinconabotulinumtoxina 100 unt injection (20 sources)Acetylcholine Release Inhibitor End: 94-48-7232wjakfkfknjdf toxin type A (BOTOX) 100 unit solr by INJECTION(UNSPECIFIED PARENTERAL ROUTES) route every 3 months. 0 10/19/2021 Discontinued (Discontinued by Patient)Comment on above:by INJECTION(UNSPECIFIED PARENTERAL ROUTES) route every 3 months.brexpiprazole 1 mg oral tablet (6 sources)Atypical AntipsychoticStart: 06-14-2020 End: 48-58-7722ghow 1 tablet by mouth once dailyREXULTI 1 mg tablet Take 1 mg by mouth once daily. 0 06/14/2020 06/10/2021 DiscontinuedComment on above:Take 1 mg by mouth once daily.cyclobenzaprine hydrochloride 10 mg oral tablet (3 sources)Muscle Relaxant End: 06-81-4553lponzrlaplaqcww (FLEXERIL) 10 mg tablet cyclobenzaprine 10 mg tablet 0 06/10/2021 DiscontinuedComment on above:cyclobenzaprine 10 mg tablet dexamethasone phosphate 10 mg/ml injectable solution (1 source)CorticosteroidStart: 06-13-2020 End: 25-81-8658quvunraxdrufh (DECADRON) injection 10 mgStart: 06-13-2020 End: 05-47-9148szanulawjwgdb (DECADRON) injection 10 mg1 ml diphenhydrAMINE hydrochloride 50 mg/ml cartridge (20 sources)Histamine-1 Receptor AntagonistStart: 09-05-2021 End: 05-66-2664ieoogrzhemAKODJ (BENADRYL) injection 25 mgStart: 06-04-2021 End: 42-11-7460qshlggltqsVKGNT (BENADRYL) injection 50 mgStart: 04-16-2021 End: 90-02-2919vowcuzwlcvEPIFT (BENADRYL) injection 25 mgdiphenhydrAMINE (BENADRYL) 25 mg capsule Take by mouth every 6 (six) hours as needed. Activetake 2 tablets by mouth every six hours as neededdiphenhydrAMINE (BENADRYL) 25 mg tablet Take 50 mg by mouth every 6 hours as needed. Active End: 48-67-5310smkx 1 capsule by mouth every six hours as needed for sleep diphenhydrAMINE (BENADRYL) 50 MG capsule Take 1 capsule by mouth every 6 hours as needed for Itching or Sleep ActiveComment on above:Take 50 mg by mouth.Take 50 mg by mouth every 6 hours as needed.EPINEPHrine (EPINEPHrine HCL) 1 mg/mL injection 0.3 mg (1 source)Start: 09-05-2021 End: 52-07-3306OYVXQXVaeiy (EPINEPHrine HCL) 1 mg/mL injection 0.3 mg168 hr estradiol 0.05425 mg/hr transdermal system (4 sources)EstrogenStart: 08-30-2020 End: 18-39-6505cesnkgdio (CLIMARA) 0.05 mg/24 hr APPLY 1 PATCH TOPICALLY TO THE SKIN ONCE PER WEEK 0 08/30/2020 06/10/2021 Discontinued End: 62-50-7246ltki 1 tablet by mouth once dailyestradiol (ESTRACE) 1 MG tablet Take 1 mg by mouth daily 0 11/01/2020 Discontinued (Therapy completed)Comment on above:APPLY 1 PATCH TOPICALLY TO THE SKIN ONCE PER WEEKestrogens, conjugated (alf) 0.625 mg oral tablet (3 sources)Estrogen End: 05-92-9341gfro 1 tablet by mouth once dailyestrogens, conjugated, (PREMARIN) 0.625 MG tablet Take 0.625 mg by mouth daily 0 05/20/2021 Disconti nued (LIST CLEANUP)famotidine (PEPCID) 20 mg in sodium chloride (PF) 10 mL injection (2 sources)Start: 09-05-2021 End: 83-78-9930ibpdjgdnjw (PEPCID) 20 mg in sodium chloride (PF) 10 mL injection Start: 06-04-2021 End: 15-19-9967gviaknxetq (PEPCID) 20 mg in sodium chloride (PF) 10 mL injection Flaxseed Oil oil (20 sources) End: 61-06-8323crby 1000 mg by mouth once dailyFlaxseed Oil oil Take 1,000 mg by mouth once daily. 0 03/10/2022 Discontinued (Discontinued by Patient)take 1000 mg by mouth once dailyFlaxseed Oil oil Take 1,000 mg by mouth once daily. 0 ActiveFlaxseed Oil oilComment on above:Take 1,000 mg by mouth once daily. fluconazole 150 mg oral tablet (12 sources)Azole AntifungalStart: 12-24-2023 End: 30-61-5805uxxs 1 tablet by mouth once dailyFluconazole 150 mg tablet Discontinued 150 MG PO Daily December 24, 2023 1:00am February 20, 2024 1:47pm administer on day 1 of therapyStart: 06-06-2021 End: 67-85-7976jreltruljob (DIFLUCAN) 150 mg tablet TAKE 1 TABLET BY MOUTH ONCE AND REPEAT IN 3 DAYS IF NEEDED 0 06/06/2021 07/01/2021 DiscontinuedComment on above:TAKE 1 TABLET BY MOUTH ONCE AND REPEAT IN 3 DAYS IF NEEDEDformoterol fumarate 0.01 mg/ml inhalation solution (1 source)beta2-Adrenergic AgonistStart: 10-31-2021 End: 44-38-8367ijxm 2 mL by inhalation every twelve hoursformoterol fumarate (PERFOROMIST) 20 mcg/2 mL nebu Indications: Post-acute sequelae of COVID-19 ([facility]) , Chronic cough , SOB (shortness of breath) , Moderate persistent asthma without complication Inhale 2 mL as instructed every 12 hours. 120 mL 5 10/31/2021 11/03/2021 DiscontinuedComment on above:Inhale 2 mL as instructed every 12 hours.1 ml galcanezumab-gnlm 120 mg/ml prefilled syringe (20 sources)Start: 09-05-2021 End: 40-24-0892bpezww 1 mL by subcutaneous injection every monthgalcanezumab- gnlm (EMGALITY SYRINGE) 120 mg/mL syringe Indications: Chronic migraine without aura, intractable, without status migrainosus Inject 1 mL subcutaneously once every month. Do not shake. 1Each 11 09/05/2021 10/19/2021 Discontinued (Side Effects)Start: 81-40-0446bsoqrp 1 mL by subcutaneous injection every month galcanezumab-gnlm (EMGALITY SYRINGE) 120 mg/mL syringe Indications: Chronic migraine without aura, intractable, without status migrainosus Inject 1 mL subcutaneously once every month. Do not shake. 1Each 11 09/05/2021 ActiveStart: 01-13-2153xrgipb 1 mL by subcutaneous injection every monthgalcanezumab-gnlm (EMGALITY SYRINGE) 120 mg/mL syringe Indications: Chronic migraine without aura, intractable, without status migrainosus Inject 1 mL subcutaneously once every month. Do not shake. 1Each 09/05/2021 ActiveStart: 93-71-9348kqybuh 1 mL by subcutaneous injection every monthgalcanezumab-gnlm (EMGALITY SYRINGE) 120 mg/mL syringe Indications: Chronic migraine without aura, intractable, without status migrainosus Inject 1 mL subcutaneously once every month. Do not shake. 1Each 09/05/2021 ActiveStart: 06-53-5067uycusq 1 mL by subcutaneous injection every monthgalcanezumab-gnlm (EMGALITY SYRINGE) 120 mg/mL syringe Indications: Chronic migraine without aura, intractable, without status migrainosus Inject 1 mL subcutaneously once every month. Do not shake. 1Each 09/05/2021 ActiveStart: 59-04-7185dsleuw 1 mL by subcutaneous injection every monthgalcanezumab-gnlm (EMGALITY SYRINGE) 120 mg/mL syringe Indications: Chronic migraine without aura, intractable, without status migrainosus Inject 1 mL subcutaneously once every month. Do not shake. 1Each 09/05/2021 ActiveStart: 07-93-0575lnbdhw 1 mL by subcutaneous injection every monthgalcanezumab-gnlm (EMGALITY SYRINGE) 120 mg/mL syringe Indications: Chronic migraine without aura, intractable, without status migrainosus Inject 1 mL subcutaneously once every month. Do not shake. 1Each 09/05/2021 ActiveStart: 31-35-3084lobyfw 1 mL by subcutaneous injection every monthgalcanezumab-gnlm (EMGALITY SYRINGE) 120 mg/mL syringe Indications: Chronic migraine without aura, intractable, without status migrainosus Inject 1 mL subcutaneously once every month. Do not shake. 1Each 09/05/2021 ActiveStart: 04-08-2613aigjut 1 mL by subcutaneous injection every monthgalcanezumab-gnlm (EMGALITY SYRINGE) 120 mg/mL syringe Indications: Chronic migraine without aura, intractable, without status migrainosus Inject 1 mL subcutaneously once every month. Do not shake. 1Each 09/05/2021 ActiveStart: 50-37-8796ibefgw 1 mL by subcutaneous injection every monthgalcanezumab-gnlm (EMGALITY SYRINGE) 120 mg/mL syringe Indications: Chronic migraine without aura, intractable, without status migrainosus Inject 1 mL subcutaneously once every month. Do not shake. 1Each 09/05/2021 ActiveStart: 83-90-3073bcbgxx 1 mL by subcutaneous injection every monthgalcanezumab-gnlm (EMGALITY SYRINGE) 120 mg/mL syringe Indications: Chronic migraine without aura, intractable, without status migrainosus Inject 1 mL subcutaneously once every month. Do not shake. 1Each 09/05/2021 ActiveStart: 75-82-3354jcrpjc 1 mL by subcutaneous injection every monthgalcanezumab-gnlm (EMGALITY SYRINGE) 120 mg/mL syringe Indications: Chronic migraine without aura, intractable, without status migrainosus Inject 1 mL subcutaneously once every month. Do not shake. 1Each 09/05/2021 ActiveStart: 82-59-2083cvecrs 1 mL by subcutaneous injection every monthgalcanezumab-gnlm (EMGALITY SYRINGE) 120 mg/mL syringe Indications: Chronic migraine without aura, intractable, without status migrainosus Inject 1 mL subcutaneously once every month. Do not shake. 1Each 09/05/2021 ActiveStart: 08-05-2021 End: 46-71-3195zknrcymzvaku-gnlm (EMGALITY SYRINGE) 120 mg/mL syringe Indications: Chronic migraine without aura, intractable, without status migrainosus Inject 2 mL subcutaneously once every month. Inject two pensthe first month as a loading dose. Do not shake. 2 Each 0 08/05/2021 10/19/2021 Discontinued (Course of therapy completed)Comment on above:Inject 2 mL subcutaneously once every month. Inject two pens the first month as a loading dose. Do not shake.Inject 1 mL subcutaneously once every month. Do not shake. levoFLOXacin 750 mg oral tablet (2 sources)Quinolone AntimicrobialStart: 09-25-2024 End: 79-86-8391rnns 1 tablet by mouth once dailylevoFLOXacin (Levaquin) 750 MG tablet Indications: Chronic rhinosinusitis Take 1 tablet (750 mg) bymouth Daily for 7 days 7 tablet 09/25/2024 09/25/2024 Discontinuedlidocaine 0.05 mg/mg medicated patch (13 sources)Antiarrhythmic, Amide Local AnestheticStart: 06-13-2020 End: 29-41-4468knbojchmz (LIDODERM) 5 % PLACE 1 PATCH TOPICALLY ON THE SKIN DAILY FOR 10 DAYS. LEAVE ON 12 HOURS, THEN LEAVE OFF 12 HOURS. 0 06/13/2020 07/01/2021 DiscontinuedComment on above:PLACE 1 PATCH TOPICALLY ON THE SKIN DAILY FOR 10 DAYS. LEAVE ON 12 HOURS, THEN LEAVE OFF 12 HOURS.Magnesium (20 sources) End: 94-85-1048Vwewnrcji 250 mg tab Take 250 mg by mouth. 09/30/2024 Discontinued (Duplicate Entry) End: 41-71-8618vgnyhoaca 250 mg tablet Take 1 tablet (250 mg total) by mouth. 07/01/2024 DiscontinuedMagnesium 250 mg tab Take 250 mg by mouth. Active magnesium 250 mg tablet Take 1 tablet (250 mg total) by mouth. Activemagnesium 250 mg tablet Take 1 tablet (250 mg total) by mouth. 0 ActiveMagnesium 250 mg tab Take 250 mg by mouth. 0 ActiveComment on above:Take 250 mg by mouth. metFORMIN hydrochloride 500 mg oral tablet (6 sources)Biguanide End: 86-89-9911kqvORWENI (GLUCOPHAGE) 500 mg tablet Take 500 mg by mouth. 0 06/10/2021 DiscontinuedComment on above:Take 500 mg by mouth.methylPREDNISolone 125 mg injection (3 sources)CorticosteroidStart: 09-05-2021 End: 90-16-8887mrvweiOBVIGIXpccix sodium (SOLU-MEDROL) injection 60 mgStart: 06-04-2021 End: 56-82-2239zgakmwFCKLECImccup sodium (SOLU-MEDROL) injection 125 mgStart: 06-13-2020 End: 44-78-9745rcjyaiSUTECEJomubj (MEDROL, ERMA,) 4 MG tablet Take by mouth. 1 kit 0 06/13/2020 06/19/2020 Active1 ml morphine sulfate 2 mg/ml cartridge (1 source)Opioid AgonistStart: 05-20-2021 End: 56-31-0923areggmvd (PF) injection 2 mg2 ml orphenadrine citrate 30 mg/ml injection (1 source)Muscle RelaxantStart: 06-21-2021 End: 89-80-9352dfkwtjcbsngu (NORFLEX) injection 60 mgpantoprazole 40 mg delayed release oral tablet (20 sources)Proton Pump InhibitorStart: 11-09-2023 End: 94-14-5390Kgskrqwbxcyo 40 mg tablet,delayed release (DR/EC) Discontinued MG PO December 24, 2023 1:00am April 08, 2024 1:02pmStart: 62-97-5025wrwa 1 tablet by mouth twice dailyPantoprazole [address] Tab 40 mg = 1 tab(s), Oral, BID, # 60 tab(s), Refills(s) 3, Pharmacy: [facility]/pharmacy #[id number], 162, cm, 01/04/23 9:06:00 EST, Height/Length Dosing, 100.5, kg, 01/04/23 9:06:00 EST, Weight Dosing Start Date: 02/13/23 Status: Ordered Quantity: 60.0 Unit: tab(s) Repeat number: 4 Indications: Gastro-esophageal reflux disease without esophagitis; prazosin 5 mg oral capsule (20 sources)alpha-Adrenergic BlockerStart: 06-29-2021 End: 65-77-9831itba 1 capsule by mouth once daily at bedtimeprazosin (MINIPRESS) 5 mg cap Take 5 mg by mouth daily at bedtime. 0 06/29/2021 04/18/2022 Discontin uedComment on above:Take 5 mg by mouth daily at bedtime. rOPINIRole 0.25 mg oral tablet (14 sources)Nonergot Dopamine AgonistStart: 08-24-2021 End: 01-08-2698mZOPKHBshb (REQUIP) 0.25 mg tablet Take 0.25 mg by mouth. 0 08/24/2021 10/19/2021 Discontinued (Discontinued by another Health Care Provider)Comment on above:Take 0.25 mg by mouth.0.25 mg, 0.5 mg dose 1.5 ml semaglutide 1.34 mg/ml pen injector (6 sources)Start: 10-10-2023 End: 50-61-0269prvlpjysbyo (Ozempic, 0.25 or 0.5 MG/DOSE,) 2 MG/1.5ML solution pen-injector Indications: Type 2 diabetes mellitus with hyperglycemia, without long-term current use of insulin ([facility]) 0.25 mg SC weekly x 4 weeks, then 0.5 mg weekly 1 each 3 10/10/2023 11/07/2023 Discontinued (Therapy completed) SITagliptin 100 mg oral tablet (20 sources)Dipeptidyl Peptidase 4 InhibitorStart: 11-23-2020 End: 54-10-0538hyqk 1 tablet by mouth once dailySITagliptin (Januvia) 100 MG tablet Indications: Type 2 diabetes mellitus with hyperglycemia, without long- term current use of insulin ([facility]) Take 1 tablet (100 mg) by mouth Daily 90 tablet 3 05/19/2024 08/11/2024 DiscontinuedComment on above:Take 100 mg by mouth as needed.Take 1 tablet by mouth once daily.spironolactone 50 mg oral tablet (6 sources)Aldosterone AntagonistStart: 07-12-2020 End: 05-13-9001hgin 1 tablet by mouth once dailyspironolactone (ALDACTONE) 50 mg tablet Take 50 mg by mouth once daily. 0 07/12/2020 06/10/2021 Discontinued End: 19-56-3454sabyujnhxkwnzy (ALDACTONE) 50 MG tablet Take 25 mg by mouth daily 0 05/20/2021 Discontinued (LIST CLEANUP)Comment on above:Take 50 mg by mouth once daily.SUMAtriptan 50 mg oral tablet (2 sources)Serotonin-1b and Serotonin-1d Receptor Agonist End: 17-08-6199lrkx 2 tablets by mouth once as neededSUMAtriptan (IMITREX) 50 MG tablet Take 100 mg by mouth once as needed for Migraine 0 11/01/2020 Dis continued (Therapy completed)60 actuat tiotropium 0.15878 mg/actuat inhalation spray (20 sources)AnticholinergicStart: 12-24-2023 End: 35-11-5786Ckjfreczts [place] (Spiriva Respimat) 1.25 mcg/actuation mist Discontinued INHALATION December 24, 2023 1:00am September 08, 2024 11:48am Start: 11-07-2023 End: 71-93-9877lwwlwpuyih (Spiriva Respimat) 1.25 MCG/ACT inhaler Indications: Severe persistent asthma with (acute) exacerbation (HCC) Inhale 2 puffs Daily 1 each 11/07/2023 08/11/2024 DiscontinuedtiZANidine 4 mg oral tablet (4 sources)Central alpha-2 Adrenergic AgonistStart: 06-13-2020 End: 01-29-3389slmj 1 tablet by mouth every eight hours as needed for pain tiZANidine (ZANAFLEX) 4 MG tablet Take 1 tablet by mouth every 8 hours as needed (Back pain) 10 tablet 0 06/13/2020 05/20/2021 Discontinued (LIST CLEANUP)Zinc (20 sources) End: 09-46-5096Izol 50 mg tab Take by mouth. 0 10/02/2022 DiscontinuedZinc 50 mg tab Take by mouth. 0 ActiveComment on above:Take by mouth. Problems Active Problems Problem ClassificationProblemDateDocumented DateEpisodic/ChronicAnxiety disorders (20 sources)Anxiety; Translations: [Anxiety disorder, unspecified]Onset: 12-22-2015 Resolved: 76-29-4000FjatqigVhmptp (20 sources)Exacerbation of moderate persistent asthma; Translations: [Moderate persistent asthma with (acute) exacerbation]Onset: 12-22-2015 Resolved: 34-65-5524YzethteXlmiqyso of urinary tract (6 sources)Kidney stone; Translations: [Calculus of kidney]Onset: 09-05-2022 EpisodicCardiac dysrhythmias (4 sources)Postural orthostatic tachycardia syndrome ; Translations: [POTS (postural orthostatic tachycardia syndrome)]09-64-5440ZetuhtvPdvqafgweil and hemorrhagic disorders (20 sources)Blood coagulation disorder; Translations: [Coagulation defect, unspecified]Onset: [id number] mellitus with complications (20 sources)Type 2 diabetes mellitus with hyperglycemia; Translations: [Hyperglycemia due to type 2 diabetes mellitus]Onset: 18-15-2998NitzqcfDrabnqjw mellitus without complication (20 sources)Type 2 diabetes mellitus; Translations: [Diabetes mellitus]Onset: 585175-81-4150YrgmdlvIcmxihoc of mouth; excluding dental (2 sources)Geographic tongue; Translations: [Geographic tongue]Onset: 10-28-2024 47-89-0259NusnyvlqIraxirswy of lipid metabolism (20 sources)Hyperlipidemia; Translations: [Hyperlipidemia, unspecified]Onset: [id number]x disorders (20 sources)Gastroesophageal reflux disease; Translations: [Gastro-esophageal reflux disease without esophagitis]Onset: 32-13-1077MdcbqzgUucrjorhk hypertension (1 source)Hypertensive disorder; Translations: [Essential (primary) hypertension]ChronicHeadache; including migraine (20 sources)Chronic intractable migraine without aura; Translations: [Chronic migraine without aura, intractable, without status migrainosus]Onset: 12-24-2020 ChronicHeadache; including migraine (4 sources)Headache; including migraine; Translations: [HEADACHE UNSPECIFIED] Onset: 35-10-1149Alsebownnrqx diseases of female pelvic organs (1 source)Hydrosalpinx; Translations: [Chronic salpingitis]ChronicMenopausal disorders (2 sources)Postmenopausal state; Translations: [Hormone replacement therapy] 91-88-3450FcawcaxsEypc disorders (20 sources)Depressive disorder; Translations: [Depression, unspecified depression type]Onset: 37-73-4866XpwvxxyRlncni and vomiting (1 source)Intractable nausea and vomiting; Translations: [Nausea with vomiting, unspecified]EpisodicNutritional deficiencies (20 sources)Vitamin D deficiency; Translations: [Vitamin D deficiency, unspecified]Onset: 270600-31-0317WchugpsZhqfs aftercare (1 source)Other nursing home (current) drug therapy; Translations: [OTH LONGTERM CURRENT DRUG THERAPY]Onset: 63-49-4048VecpzotjCcksd and unspecified benign neoplasm (3 sources)Benign lipomatous tumor; Translations: [Benign lipomatous neoplasm, unspecified]Onset: 34-48-0437VxertihoWydvj and unspecified benign neoplasm (3 sources)Lipoma (clinical)52-11-0264YjwlpftuTddkw and unspecified benign neoplasm (2 sources)Melanocytic nevus of trunk; Translations: [Melanocytic nevi of trunk] 23-22-6872JvndsbzgCwbgq and unspecified benign neoplasm (2 sources)Dermatofibroma of right upper limb; Translations: [Other benign neoplasm of skin of right upper limb, including shoulder]86-93-3110MghajzgpEwydk bone disease and musculoskeletal deformities (1 source)Bone pain; Translations: [Other specified disorders of bone, unspecified site]EpisodicOther circulatory disease (2 sources)Presence of other cardiac implants and grafts; Translations: [Presence of other cardiac implants and grafts]Onset: 06-81-2943CogdplcRzead circulatory disease (1 source)Labile hypertension due to being in a clinical environment; Translations: [Elevated blood-pressure reading, without diagnosis of hypertension]EpisodicOther connective tissue disease (3 sources)Spasm; Translations: [Other muscle spasm]EpisodicOther connective tissue disease (1 source)Diastasis recti; Translations: [Separation of muscle (nontraumatic), other site]EpisodicOther connective tissue disease (6 sources)Muscle pain; Translations: [Myalgia, unspecified site]EpisodicOther connective tissue disease (20 sources)Pain of right forearm; Translations: [Pain in right forearm]Onset: 480508-55-5630XegygyijNlzlx diseases of bladder and urethra (3 sources)Male urethral stricture; Translations: [Unspecified urethral stricture, male, unspecified site]Onset: 48-84-0615RjzrfuiqQvhwe ear and sense organ disorders (20 sources)Hearing loss; Translations: [Unspecified hearing loss, unspecified ear]Onset: 674009-88-6405PyhyruxRmpmd endocrine disorders (20 sources)Polycystic ovary syndrome; Translations: [Polycystic ovarian syndrome]Onset: 363832-61-3938ZnqewrfLadnl female genital disorders (20 sources)Pain in female genitalia on intercourse; Translations: [Unspecified dyspareunia]Onset: 807442-32-7928VkddhpgQqnhk gastrointestinal disorders (20 sources)Irritable bowel syndrome; Translations: [Irritable bowel syndrome without diarrhea]Onset: 102964-77-3660HygkykcCnroo gastrointestinal disorders (1 source)Celiac disease; Translations: [Celiac disease]57-50-2364YnzuuxqRbrcc hereditary and degenerative nervous system conditions (2 sources)Akathisia; Translations: [Drug induced akathisia]ChronicOther hereditary and degenerative nervous system conditions (1 source)Chorea; 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]ChronicOther hereditary and degenerative nervous system conditions (1 source)Restless legs; Translations: [Restless legs syndrome]ChronicOther hereditary and degenerative nervous system conditions (1 source)Other specified extrapyramidal and movement disorders; Translations: [OTH SPEC EXTRAPYRAMIDAL MOVEMNT D/O]Onset: 48-01-4131QguhmxkWqkuu hereditary and degenerative nervous system conditions (2 sources)Uotzpxysq64-10-2698WxgmoypMonrb infections; including parasitic (20 sources)Late effects of other and unspecified infectious and parasitic diseases; 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]Onset: 64-87-2480UrryoiaVzxhl infections; including parasitic (20 sources)Post-viral disorder; Translations: [Sequelae of other specified infectious and parasitic diseases]Onset: 965462-13-1169ChtalnlPtucw infections; including parasitic (9 sources)Personal history of other infectious and parasitic diseases; Translations: [History of COVID-19]EpisodicOther injuries and conditions due to external causes (1 source)Angioedema; Translations: [Angioneurotic edema, initial encounter] EpisodicOther injuries and conditions due to external causes (4 sources)Allergic reaction; Translations: [Allergy, unspecified, subsequent encounter]00-69-4065UbiiejcoXhftl injuries and conditions due to external causes (4 sources)Injury of right forearm; Translations: [Unspecified injury of right forearm, initial encounter]95-49-4147NmaoznogKlcdr injuries and conditions due to external causes (1 source)Unspecified injury of right forearm, initial encounter; Translations: [Unspecified injury of right forearm, initial encounter]Onset: 09-08-2024 EpisodicOther lower respiratory disease (7 sources)Dyspnea; Translations: [Shortness of breath]EpisodicOther lower respiratory disease (6 sources)Chronic cough; Translations: [Chronic cough]EpisodicOther lower respiratory disease (6 sources)Dyspnea on exertion; Translations: [Other forms of dyspnea]Episodic Other lower respiratory disease (6 sources)Orthopnea; Translations: [Orthopnea]EpisodicOther lower respiratory disease (2 sources)Respiratory tract infection; Translations: [Other specified respiratory disorders]57-92-9764CklqsqfbEmrvg nervous system disorders (20 sources)Arachnoid cyst of pituitary; Translations: [Cerebral cysts]Onset: 564900-89-2533FeuwdfaZmjdm nervous system disorders (20 sources)Disorder of autonomic nervous system; Translations: [Disorder of the autonomic nervous system, unspecified]Onset: 49-45-5888SiraviaJmkct nervous system disorders (1 source)Circadian rhythm sleep disorder of shift work type; Translations: [Circadian rhythm sleep disorder,shift work type]ChronicOther nervous system disorders (20 sources)Arachnoid cyst; Translations: [Cerebral cysts]Onset: 12-22-2015 30-21-0071FpdbwviIibdb nervous system disorders (1 source)Demyelinating disease of central nervous system, unspecified; Translations: [Demyelinating disease of central nervous system (HCC)]Onset: 36-51-9439EbfbatnUlqgr nervous system disorders (1 source)Disorder of the autonomic nervous system, unspecified; Translations: [Disorder of the autonomic nervous system, unspecified]Onset: 84-08-7278Lizbuca Other nervous system disorders (5 sources)Abnormal involuntary movement; Translations: [Unspecified abnormal involuntary movements]EpisodicOther nervous system disorders (2 sources)Iaotbivlmxi97-81-5582TyotpkjmWiotl non-traumatic joint disorders (6 sources)Multiple joint pain; Translations: [Pain in unspecified joint] EpisodicOther non-traumatic joint disorders (20 sources)Pain of right wrist; Translations: [Pain in right wrist]Onset: 938637-08-6284RvsstbqrNmxek nutritional; endocrine; and metabolic disorders (1 source)Drug-induced obesity; Translations: [Drug-induced obesity]ChronicOther nutritional; endocrine; and metabolic disorders (4 sources)Body mass index 30+ - obesity; Translations: [Body mass index (BMI) 38.0-38.9, adult]29-77-4718BmnsujeWhini nutritional; endocrine; and metabolic disorders (2 sources)Metabolic syndrome C88-75-6284WsghlbcNrhdo nutritional; endocrine; and metabolic disorders (2 sources)Morbid iggxlmz68-57-4224ErwzqyoOciiv nutritional; endocrine; and metabolic disorders (20 sources)Severe obesity; Translations: [Class 2 severe obesity due to excess calories with serious comorbidity and body mass index (BMI) of 37.0 to 37.9 in adult ([facility]/HCC)]Onset: 723162-96-5634RhfchxxVyqqu skin disorders (7 sources)Night sweats; Translations: [Generalized hyperhidrosis]EpisodicOther skin disorders (1 source)Localized swelling, mass and lump, left upper limb; Translations: [Localized superficial swelling, mass, or lump]EpisodicOther skin disorders (1 source)Eruption; Translations: [Rash and other nonspecific skin eruption] EpisodicOther upper respiratory disease (20 sources)Allergic rhinitis; Translations: [Allergic rhinitis, unspecified] Onset: 87-46-2491YblarecQdfid upper respiratory disease (20 sources)Allergic rhinitis due to pollen; Translations: [Allergic rhinitis due to pollen]Onset: 219202-76-8546XbhuyeySrzwa upper respiratory disease (2 sources)Seasonal allergy; Translations: [Other seasonal allergic rhinitis] 75-45-0172CykbzomJfzca upper respiratory disease (1 source)Cyst of maxillary sinus; Translations: [Cyst and mucocele of nose and nasal sinus]EpisodicOther upper respiratory disease (1 source)Hoarse; Translations: [Dysphonia]EpisodicOther upper respiratory disease (6 sources)Vocal cord dysfunction; Translations: [Other diseases of vocal cords] 89-85-5553AqtrjonjDkvwu upper respiratory disease (1 source)Hypertrophy of nasal turbinates; Translations: [Hypertrophy of nasal turbinates]03-51-0893PxbscumgJtdxv upper respiratory disease (1 source)Other diseases of vocal cords; Translations: [Other diseases of vocal cords]Onset: 20-57-9908QlpqkegvIvwwc upper respiratory disease (1 source)Hypertrophy of nasal turbinates; Translations: [Hypertrophy of nasal turbinates]Onset: 31-57-0018ZsllgabiWkssa upper respiratory infections (20 sources)Chronic sinusitis; Translations: [Chronic sinusitis, unspecified] Onset: 021900-88-9433RmyizaqHrldth media and related conditions (2 sources)Bilateral tympanosclerosis; Translations: [Tympanosclerosis, bilateral]Onset: 790739-14-9030CiddtwuhUupdfoyo codes; unclassified (20 sources)Obstructive sleep apnea syndrome; Translations: [Obstructive sleep apnea (adult) (pediatric)]Onset: 15-74-0724GskjxhoAsdhkvgq codes; unclassified (1 source)Sleep paralysis; Translations: [Other sleep disorders]ChronicResidual codes; unclassified (1 source)Poor sleep pattern; Translations: [Other sleep disorders]Chronic Residual codes; unclassified (20 sources)Hypersomnia with sleep apnea; Translations: [Hypersomnia, unspecified]Onset: 03-02-2021 Resolved: 007490-17-0021ShzbodoUuruppgy codes; unclassified (2 sources)Hypersomnia, unspecified; Translations: [Hypersomnia, unspecified] Onset: 79-25-2568LcwybpkMyuwgagd codes; unclassified (2 sources)Sleep apnea, unspecified; Translations: [Sleep apnea, unspecified] Onset: 71-66-3527KhbiurhEnblehnd codes; unclassified (1 source)Obstructive sleep apnea (adult) (pediatric); Translations: [Obstructive sleep apnea (adult) (pediatric)]Onset: 06-75-2515MziasxfWorleacw codes; unclassified (1 source)Unable to comply with treatment; Translations: [Patient's other noncompliance with medication regimen]EpisodicResidual codes; unclassified (1 source)Did not attend; Translations: [No-show for appointment]Episodic Residual codes; unclassified (4 sources)Insomnia; Translations: [Insomnia, unspecified]87-95-5181Mgxyfioa Residual codes; unclassified (2 sources)Peripheral -31-7247JgkswhycHzfvympu codes; unclassified (2 sources)Edema; Translations: [Edema, unspecified]37-77-2053LzwrmqgkXwyamzaxz and history of mental health and substance abuse codes (1 source)History of post-traumatic stress disorder; Translations: [Personal history of other mental and behavioral disorders]EpisodicSprains and strains (1 source)Low back strain; Translations: [Strain of muscle, fascia and tendon of lower back, initial encounter]EpisodicSystemic lupus erythematosus and connective tissue disorders (1 source)Systemic lupus erythematosus; Translations: [Systemic lupus erythematosus, unspecified]61-10-3275WkwvsfpDsoywyw disorders (20 sources)Hypothyroidism, unspecified; Translations: [Unspecified acquired hypothyroidism]Onset: 15-06-6999GwnsdwlUxsbqkwfneuh (2 sources)X; Translations: [X]Onset: 30-59-1621Nhtubfxpvspe (1 source)History of COVID-19; Translations: [History of COVID-19]Onset: 26-62-0631Gtcpwxmcdmxw (3 sources)LOW BACK PAIN, UNSPECIFIED; Translations: [LOW BACK PAIN, UNSPECIFIED]Onset: 83-87-9589Nfzkmgfsbmkc (1 source)POST COVID-19 CONDITION UNSPECIFIED; Translations: [POST COVID-19 CONDITION UNSPECIFIED]Onset: 49-81-9874Jbkgyorfeubt (1 source)CONTACT W/AND (SUSP) EXPOS COVID-19; Translations: [CONTACT W/AND (SUSP) EXPOS COVID-19]Onset: 84-16-2292Ksegbgdfesfu (2 sources)Post covid-19 condition, unspecified; Translations: [Post covid-19 condition, unspecified]Onset: 82-59-5423Yrnoenwqzhxm (2 sources)Myalgic encephalomyelitis/chronic fatigue syndrome; Translations: [Myalgic encephalomyelitis/chronic fatigue syndrome]Onset: 03-02-2021 Unclassified (3 sources)Chronic rhinosinusitis; Translations: [chronic rhinosinusitis]Onset: 421743-91-5360Wkfgzxhqomjr (1 source)Qualitative platelet disorderOnset: 09-30-2024 Past or Other Problems Problem ClassificationProblemDateDocumented DateEpisodic/ChronicAbdominal hernia (20 sources)Right inguinal hernia ; Translations: [Unilateral inguinal hernia, without obstruction or gangrene,not specified as recurrent]Onset: 01-12-2023 58-69-1417ZleqlevuHifjketdt pain (20 sources)Right lower quadrant pain; Translations: [Right lower quadrant pain] Onset: 12-30-2011 Resolved: 88-31-4668QfrfiejePxpyipvsrxtnps/social admission (2 sources)Encounter for pre-employment examination; Translations: [Encounter for pre-employment examination]Onset: 03-58-3178KcvuavxjNceuliqp reactions (20 sources)Urticaria; Translations: [Urticaria, unspecified]Onset: 02-10-2021 EpisodicBlindness and vision defects (20 sources)Diplopia; Translations: [Diplopia]Onset: 675982-09-1660 EpisodicCardiac dysrhythmias (20 sources)Bradycardia; Translations: [Bradycardia, unspecified]Onset: 96-38-516008966214-81-8282EsfarlrlUqkkskyanob and hemorrhagic disorders (20 sources)Blood coagulation disorder; Translations: [Hemorrhagic condition, unspecified]Onset: 93-55-5044KmmnhbdoFuyloglocy associated with dizziness or vertigo (20 sources)Orthostatic hypotension; Translations: [Dizziness and giddiness] Onset: 05-24-2021 Resolved: 001295-67-9581BnhnmuvsRjjjigob mellitus without complication (1 source)Prediabetes; Translations: [PREDIABETES]Onset: 90-34-0250NbjcktgsZ Codes: Adverse effects of medical drugs (20 sources)Adverse reaction to drug; Translations: [Adverse effect of unspecified drugs, medicaments and biological substances, initial encounter] Onset: 07-25-2021 Resolved: 41-50-2616BzpdrjthWlrshizyqrgqw symptoms and ill-defined conditions (20 sources)Stress incontinence (female) (male); Translations: [Genuine stress incontinence]Onset: 2021 Resolved: 30-51-4700SxtdocvSkowksffnppkm symptoms and ill-defined conditions (20 sources)Blood in urine; Translations: [Gross hematuria]Onset: 11-16-2021 Resolved: 39-78-4710AynvvzzbStonxpnl; including migraine (20 sources)Headache; Translations: [Worsening headaches]Onset: 12-22-2015 Resolved: 93-33-3241AmqrbcisAdnurbkgykmtd and screening for infectious disease (1 source)Encounter for screening for human papillomavirus (HPV); Translations: [ENC SCREENING HUMAN PAPILLOMAVIRUS]Onset: 68-74-3193VgncvyemCxytallwztinv (4 sources)Lymphadenopathy; Translations: [Generalized enlarged lymph nodes] Onset: 24-40-0152KethkovhCfsmtzc and fatigue (20 sources)Malaise and fatigue; Translations: [Other malaise]Onset: 03-02-2021 23-04-2619MillmsbwDcrr disorders (20 sources)Mood disordersOnset: 630640-91-8619Iknihatgdook breast conditions (2 sources)Unspecified lump in axillary tail of the left breast; Translations: [Unspecified lump in axillary tail of the right breast]Onset: 30-27-5219Rsdduwvx Nonspecific chest pain (20 sources)Chest pain; Translations: [Chest pain, unspecified]Onset: 12-24-2020 Resolved: 62-06-7149QfraalujAodho circulatory disease (20 sources)Labile blood pressure; Translations: [Other disorder of circulatory system]Onset: 05-24-2021 Resolved: 109127-34-1528PkwqislbMmbro circulatory disease (20 sources)Orthostatic hypotension; Translations: [Orthostatic hypotension] Onset: 08-23-2021 Resolved: 60-69-8967ZitfrdckVppvt circulatory disease (1 source)Other disorder of circulatory system; Translations: [Blood pressure instability]Onset: 06-57-2830GoizyvozCrcwt connective tissue disease (20 sources)Subjective muscle weakness; Translations: [Muscle weakness (generalized)]Onset: 466240-08-8816MqvivdflXkqyo connective tissue disease (20 sources)Muscle spasm of cervical muscle of neck; Translations: [Other muscle spasm]Onset: 348764-38-8053QjmnstkcCqkwc connective tissue disease (2 sources)Other muscle spasm; Translations: [Other muscle spasm]Onset: 17-04-8394FwzilvqsEwgag connective tissue disease (20 sources)Unspecified symptoms and signs involving the nervous system; Translations: [Other symptoms involving nervous and musculoskeletal systems] Onset: 034795-77-5492KpgynntsVgeyz diseases of bladder and urethra (20 sources)Urethral stricture; Translations: [Unspecified urethral stricture, male, unspecified site]Onset: 586224-93-1727GdshrncvPlmsg endocrine disorders (20 sources)Disorder of endocrine system; Translations: [Endocrine disorder, unspecified]Onset: 461089-50-2824RohbhgvoGonbc nervous system disorders (20 sources)Word finding difficulty ; Translations: [Other speech disturbances] Onset: 651112-56-7589VkpzfrwnBdnkj nervous system disorders (2 sources)Other speech disturbances; Translations: [Other speech disturbances] Onset: 46-65-0444NjbzlwydCmzau nervous system disorders (20 sources)Impaired cognition; Translations: [Other symptoms and signs involving cognitive functions and awareness]Onset: 097899-49-9403Aljavqhm Other nervous system disorders (1 source)Other symptoms and signs involving cognitive functions and awareness; Translations: [Other symptomsand signs involving cognitive functions and awareness]Onset: 23-47-4794LxeslraxCtwfo screening for suspected conditions (not mental disorders or infectious disease) (20 sources)Patient encounter status; Translations: [Encounter for screening for other suspected endocrine disorder]Onset: 40-98-2772QxwpizwiFhpph skin disorders (4 sources)Localized swelling, mass and lump, upper limb, bilateral; Translations: [LOC SWELL MASS LUMP UP LIMB LARS]Onset: 15-02-2845QdruwjogIsqhz upper respiratory infections (20 sources)Acute pansinusitis; Translations: [Acute pansinusitis, unspecified] Onset: 04-09-2023 Resolved: 760667-10-2908AqayokchUvnhauh cyst (20 sources)Cyst of left ovary; Translations: [Unspecified ovarian cyst, left side]Onset: 00-13-5863BsohdhayTlrcxfxo codes; unclassified (20 sources)Diffuse pain; Translations: [Pain, unspecified]Onset: 08-23-2021 EpisodicResidual codes; unclassified (20 sources)Physical activity finding; Translations: [Other general symptoms and signs]Onset: 99-59-7587XoxjtsrdWrztbehz codes; unclassified (1 source)Acquired absence of both cervix and uterus; Translations: [ACQUIRED ABSENCE BOTH CERVIX AND UTERUS]Onset: 84-35-9095OijxmxvkJmihrdpy codes; unclassified (1 source)Family history of malignant neoplasm of other genital organs; Translations: [FAM HX MALIG NEOPLSM OT GENIT ORGN]Onset: 15-29-8686Spxcafpg Residual codes; unclassified (20 sources)Memory impairment; Translations: [Other amnesia]Onset: 03-02-2021 28-33-6607LnetzdjwCnsmkpln codes; unclassified (20 sources)Bilateral lower limb edema; Translations: [Localized edema]Onset: 432292-06-1314TumtlkvgRrmjcekc codes; unclassified (2 sources)Other amnesia; Translations: [Other amnesia]Onset: 92-56-2807Bmtmaoct Residual codes; unclassified (3 sources)Edema, unspecified; Translations: [Edema, unspecified]Onset: 50-14-4096YetoljgyCupnlxinwie; intervertebral disc disorders; other back problems (20 sources)Pain in thoracic spine; Translations: [Neck pain]Onset: 03-02-2021 72-45-9175HelcncelEapmxuz (20 sources)Near syncope; Translations: [Syncope and collapse]Onset: 05-24-2022 Resolved: 97-25-5516TlkhnbfgHwekxhidbngz (1 source)LOW BACK PAIN, UNSPECIFIED; Translations: [LOW BACK PAIN, UNSPECIFIED] Onset: 28-86-3380Kvbdw infection (20 sources)Disease caused by 2019-nCoV; Translations: [COVID-19]Onset: 12-24-2020 Resolved: 35-07-2469Nuwgfarw Results Test NameValueInterpretationReference RangeFacilityALL DHEA SULFATEon 12-04-2024 DHEA-FANLIHL452.0 ug/dL57.3 - 279.2 ug/dLNODC HealthcareALL ESTRONE(E1)on 44-89-8581BKMQHHLVJ82.7 pg/mL.NOMS HealthcareComment on above:Adult Female Range Follicular phase 12.5 - 166.0 Ovulation phase 85.8 - 498.0 Luteal phase 43.8 - 211.0 Postmenopausal <6.0 - 54.7 1st trimester 215.0 - >4300.0 [place] ECLIA methodology ALL PROGESTERONEon 60-32-7509WZMWCPMOQEYL6.2 ng/mL.NOMS HealthcareComment on above:Follicular phase 0.1 - 0.9 Luteal phase 1.8 - 23.9 Ovulation phase 0.1 - 12.0 First trimester 11.0 - 44.3 Second trimester 25.4 - 83.3 Third trimester 58.7 - 214.0 Postmenopausal 0.0 - 0.1 Performed at: [address] [id number] Internet Site Designer: Zacarias Sage PhD, Phone: [phone] No Panel Informationon 27-72-0764ZYITBRPVKELHX HealthcareSRMCOH TESTOSTERONE FREE/TOT EQUILIBon 82-79-6662LJQA TESTOSTERONE(DIRECT)1.0 pg/mL0.0 - 4.2 pg/mL [facility] HealthcareComment on above:Performed at: - [facility] [address] [id number] Internet Site Designer: Zacarias Sage PhD, Phone: [phone] Performed at: - [facility] [address] [id number] Internet Site Designer: Guerrero Bojorquez MD, Phone: [phone] Testosterone [Mass/Vol]11 ng/dL8 - 60 ng/dLNOMS HealthcareOrders Onlyon 50-65-8645Cnlgoj [id number] Leana Tran 1985 F Date Provider Department [facility] [place] [facility] Family History Problem Relation Age of [...] Sister Alive Mother's Sister Alive Mother's Sister AliveNormalUniversity of Hca Houston Healthcare WestT3, 85-83-4482Xapu T3 [Mass/Vol]2.65 pg/mLNormal2.50-3.90Pro[facility] HospitalComment on above: Performed By: #### FT3 #### [facility] ([facility]) [address] [place] [address] VIRT4, 62-89-0744Nucn T4 [Mass/Vol]0.61 ng/dLNormal 0.61-1.60ProMediSelect Medical Specialty Hospital - YoungstownComment on above:Performed By: #### FT4 #### [facility] ([facility]) [address] [place] [address] VIRTSHon 29-87-2028GWA6.89 uIU/mLNormal0.49-4.67ProKettering HealthComment on above:Performed By: #### TSH #### [facility] ([facility]) [address] [place] [address] VIROrders Onlyon 57-59-3184Gxzgag [id number] Leana Tran 1985 F Date Provider Department Center 10/26/2024 [facility] [place] [facility] Family History Problem [...] Sister Alive Mother's Sister Alive Mother's Sister AliveNormalUniversity Ohio State Harding HospitalAmbulatory Visit Summaryon 15-24-0844Pjvxporwwk Visit SummaryAmbulatory Visit Summary LEANA TRAN :1985 Visit Date:10/09/2024 Ambulatory Visit Instructions Your Diagnosis Kidney stone Feeling of incomplete bladder emptying Your Care Team Attending Physician - CHELO Overton APRN, Bautista Benavides Primary Care Physician - CAS GALICIA MD This Is Your Medications List baclofen [...] Appointments 2025 10:20 AM EDT With: CHELO Overton APRN, Bautista Benavides Where: [facility] [address] [address]- Medications What How Much When Why Instructions [...] Four times a day (before meals and atbedtime) prescribed after EGD Unchanged tamsulosin (tamsulosin 0.4 [...] for this yet, please contact Health Information Managemen (more content not included)...[facility] 53-68-4581EitorztxqKrxjvmgtj From: Дмитрий VACA, CHELO, Bautista X To: EU - Jose Overton; Sent: 10/09/2024 13:09:01 EDT Show up: 08/08/2025 13:08:00 EDT Subject: Reminder Message Reminder Message CT AP wo con for 1 yr f/u AML, kidney stones order placed today, [facility] 00-83-0768Pvsgjma Office/Clinic NoteUrology Office/Clinic Note Chief Complaint pt here for a 1 year follow up HPI Staff Pt is a 38 year old female here for a 1 year follow up Dx: kidney stone, angiomyolipoma, gross hematuria, urethral stricture. *Has Flomax for stone passage GORDON done 08/21/23 at [facility]. BBSQ: 16 Pt denies pain/burning denies visible blood denies flank pain today but did have some on Sunday with bladder pressure PVR: 29 mL History of Present Illness I have reviewed and verified the staff HPI to be accurate for this encounter. Portions of this record may have been created with voice recognition artificial intelligence software, specifically [employer], [employer] and or [employer]. Substitutions may have occurred due to the [...] 1 yr w/ CT -tamsulosin PRN Ordered: 65100 Measure Post Void residual urine and/or bladder capacity by US- non-imaging CT Abdomen/Pelvis w/o Contrast Urnls Dip Stick Auto w/o Microscopy POC 38125 3. Unspecified urethral stricture, female (N35.92: Unspecified urethral stricture, female) s/p cysto/UD 01/23/22 Denies worsening of urinary stream, but does worry she is not emptying completely -cont to monitor 4. Feeling of incomplete bladder emptying (R39.14: Feeling of incomplete bladder emptying) PVR today 29 ml discussed w/ pt, emptying well at this time -cont to monitor Follow-up With When Contact Information CHELO Overton APRN, Bautista Benavides, FAM, URL Additional Instructions: [address] Patient Education Lipoma Kidney Stones, Czpo-xj-Wofs Problem List/Past Medical History Ongoing Abnormal urine [...] esophagogastroduodenoscopy, Endometrial ablation, Insertio (more content not included)...[facility] FoundationComment on above:Result Comment: Electronically Signed By: CHELO Overton APRN, Bautista Benavides\.br\Date and Time Signed: 10/09/24 13:08 EDTCBC W Auto Differential panel (Bld)on 29-90-8031Geqaisohk (Bld) [#/Vol]0.06 10*3/uLNormal <0.11CDayton VA Medical CenterComment on above:Order Comment: Specimen Type: BLOOD SPECIMEN Ordering Facility: [facility] Address: [address], [place] [address]Performed By: #### 30197-4 #### [facility] CLIA [id number] [address] [place] [address] 40180Zcktkgldp/100 WBC (Bld)0.6 %NormalMckitrick Hospital Comment on above:Order Comment: Specimen Type: BLOOD SPECIMEN Ordering Facility: [facility] Address: [address] [place], [place] [address]Performed By: #### 83135-5 #### [facility] CLIA [id number] [address] [place] [address] 26790Ktacwittyrsk cell count method Nom (Bld)AutoNormalCCleveland Clinic Mentor Hospital on above:Order Comment: Specimen Type: BLOOD SPECIMEN Ordering Facility: [facility] Address: [address] [place], [place] [address]Performed By: #### 80626-3 #### [facility] CLIA [id number] [address] [place] [address] 84841Jbruihorcob (Bld) [#/Vol]0.09 10*3/uLNormal<0.46[facility] on above:Order Comment: Specimen Type: BLOOD SPECIMEN Ordering Facility: [facility] Address: [address] [place], [place] [address]Performed By: #### 45960-4 #### [facility] CLIA [id number] [address] [place] [address] 38940Myyuyyvdnwj/100 WBC (Bld)0.9 %NormalMckitrick Hospital Comment on above:Order Comment: Specimen Type: BLOOD SPECIMEN Ordering Facility: [facility] Address: [address] [place], [place] [address]Performed By: #### 36279-3 #### [facility] CLIA [id number] [address] [place] [address] 69949Uwurasrsron distribution width (RBC) [Ratio]11.9 %Normal 11.5-15.0[facility] on above:Order Comment: Specimen Type: BLOOD SPECIMEN Ordering Facility: [facility] Address: [address] [place], [place] [address]Performed By: #### 59896-4 #### [facility] CLIA [id number] [address] [place], [place] [address]Qikuydphzt (Bld) [Volume fraction]41.8 %Xmylnh32.0-46.0 [facility] on above:Order Comment: Specimen Type: BLOOD SPECIMEN Ordering Facility: [facility] Address: [address] [place], [place] [address]Performed By: #### 88438-1 #### [facility] CLIA [id number] [address] [place] [address] 44665Qsuoxidxpq (Bld) [Mass/Vol]14.1 g/iCVbiccp86.5-15.5CCleveland Clinic Mentor Hospital on above:Order Comment: Specimen Type: BLOOD SPECIMEN Ordering Facility: [facility] Address: [address] [place], [place] [address]Performed By: #### 76528-3 #### [facility] CLIA [id number] [address] [place] [address] 14265Zhkaqkwv granulocytes (Bld) [#/Vol]0.11 10*3/uLHigh<0.10 [facility] on above:Order Comment: Specimen Type: BLOOD SPECIMEN Ordering Facility: [facility] Address: [address] [place], [place] [address]Performed By: #### 32920-5 #### [facility] CLIA [id number] [address] [place] [address] 10689Ujharepz granulocytes/100 WBC (Bld)1.1 %NormalZanesville City Hospital on above:Order Comment: Specimen Type: BLOOD SPECIMEN Ordering Facility: [facility] Address: [address] [place], [place] [address]Performed By: #### 29056-5 #### [facility] CLIA [id number] [address] [place] [address] 90296Rocdvtcqaox (Bld) [#/Vol]2.18 10*3/uLNormal1.00-4.00[facility] on above:Order Comment: Specimen Type: BLOOD SPECIMEN Ordering Facility: [facility] Address: [address] [place], [place] [address]Performed By: #### 38505-2 #### [facility] CLIA [id number] [address] [place], [place] [address]Tibohabsqut/100 WBC (Bld)22.2 %NormalZanesville City Hospital on above:Order Comment: Specimen Type: BLOOD SPECIMEN Ordering Facility: [facility] Address: [address] [place], [place] [address]Performed By: #### 23741-5 #### [facility] CLIA [id number] [address] [place] [address] 49848NLO (RBC) [Entitic mass]29.7 puOqnwnu00.0-34.0[facility] on above:Order Comment: Specimen Type: BLOOD SPECIMEN Ordering Facility: [facility] Address: [address] [place], [place] [address]Performed By: #### 55480-4 #### [facility] CLIA [id number] [address] [place] [address] 10229GWFA (RBC) [Mass/Vol]33.7 g/vXKxstcd48.5-36.0[facility] on above:Order Comment: Specimen Type: BLOOD SPECIMEN Ordering Facility: [facility] Address: [address] [place], [place] [address]Performed By: #### 34519-4 #### [facility] CLIA [id number] [address] [place] [address] 35984UQG (RBC) [Entitic vol]88.0 fIMxfnlw22.0-100.0[facility] on above:Order Comment: Specimen Type: BLOOD SPECIMEN Ordering Facility: [facility] Address: [address] [place], [place] [address]Performed By: #### 54237-7 #### [facility] CLIA [id number] [address] [place] [address] 79863Jarsnsvmk (Bld) [#/Vol]0.34 10*3/uLNormal<0.87[facility] on above:Order Comment: Specimen Type: BLOOD SPECIMEN Ordering Facility: [facility] Address: [address] [place], [place] [address]Performed By: #### 36860-0 #### [facility] CLIA [id number] [address] [place] [address] 31736Ugxkskhvm/100 WBC (Bld)3.5 %NormalMckitrick Hospital Comment on above:Order Comment: Specimen Type: BLOOD SPECIMEN Ordering Facility: [facility] Address: [address] [place], [place] [address]Performed By: #### 35524-9 #### [facility] CLIA [id number] [address] [place] [address] 57424Ioswnfscqpu (Bld) [#/Vol]7.06 10*3/uLNormal1.45-7.50[facility] on above:Order Comment: Specimen Type: BLOOD SPECIMEN Ordering Facility: [facility] Address: [address] [place], [place] [address]Performed By: #### 65355-8 #### [facility] CLIA [id number] [address] [place] [address] 27262Umohavpgfvj/100 WBC (Bld)71.7 %NormalMckitrick HospitalComfresenius medical care at [facility] on above:Order Comment: Specimen Type: BLOOD SPECIMEN Ordering Facility: [facility] Address: [address] [place], [place] [address]Performed By: #### 42745-9 #### [facility] CLIA [id number] [address] [place] [address] 99493Osrrqzltz RBC (Bld) [#/Vol]10*3/uLNormal<0.01[facility] on above:Order Comment: Specimen Type: BLOOD SPECIMEN Ordering Facility: [facility] Address: [address] [place], [place] [address]Performed By: #### 10263-3 #### [facility] CLIA [id number] [address] [place], [place] [address]Lkgejztwn RBC/100 WBC (Bld) [Ratio]0.0 /100 WBCNormalCCleveland Clinic Mentor Hospital on above:Order Comment: Specimen Type: BLOOD SPECIMEN Ordering Facility: [facility] Address: [address] [place], [place] [address]Performed By: #### 46933-9 #### [facility] CLIA [id number] [address] [place], [place] [address]Fdnrnchh mean volume (Bld) [Entitic vol]9.8 fLNormal9.0-12.7 [facility] on above:Order Comment: Specimen Type: BLOOD SPECIMEN Ordering Facility: [facility] Address: [address] [place], [place] [address]Performed By: #### 99141-6 #### [facility] CLIA [id number] [address] [place], [place] [address]Acraacbxi (Bld) [#/Vol]254 10*3/mLAwrmsq274-607YfrtsawrcZanesville City Hospital on above:Order Comment: Specimen Type: BLOOD SPECIMEN Ordering Facility: [facility] Address: [address] [place], [place] [address]Performed By: #### 50813-0 #### [facility] CLIA [id number] [address] [place], [place] [address]RSA (Bld) [#/Vol]4.75 10*6/uLNormal3.90-5.20[facility] on above:Order Comment: Specimen Type: BLOOD SPECIMEN Ordering Facility: [facility] Address: [address] [place], [place] [address]Performed By: #### 08433-1 #### [facility] CLIA [id number] [address] [place], [place] [address]LDB (Bld) [#/Vol]9.84 10*3/uLNormal3.70-11.00Mckitrick HospitalComfresenius medical care at [facility] on above:Order Comment: Specimen Type: BLOOD SPECIMEN Ordering Facility: [facility] Address: [address] [place], [place] [address]Performed By: #### 63854-5 #### [facility] CLIA [id number] [address] [place], [place] [address]TJA CBC W AUTO DIFF BLDon 76-15-3842Shcxoqatc/100 WBC (Bld)0.6 %[facility] BASOPHILS # BLD AUTO0.06NISouthern [facility] DIFFERENTIAL METHOD BLDAutoNOMThe Rehabilitation Institute of St. [facility] EOSINOPHIL # BLD AUTO0.09NIParkwest Medical Center LYMPHOCYTES # BLD AUTO2.18NOPike County Memorial Hospital MONOCYTES # BLD AUTO0.34NIS[facility] NEUTROPHILS # BLD AUTO7.06[facility] NRBC # BLD AUTO <0.01NISouthern [facility] NRBC/100 WBC BLD-RTO0/100 WBCWestern [facility] Medical Center PLATELET # BLD UIYH911FBBTWestern Missouri Medical Center PMV BLD AUTO9.8 fL9.0 - 12.7 fLWestern Missouri Medical Center WBC # BLD AUTO9.84[facility] CampusEosinophils/100 WBC (Bld)0.9 % [facility]ok[facility] CampusErythrocyte distribution width (RBC) [Ratio]11.9 %11.5 - 15.0 % [facility] HealthcareHematocrit (Bld) [Volume fraction]41.8 %36.0 - 46.0 %[facility]ok[facility] CampusHemoglobin (Bld) [Mass/Vol]14.1 g/dL11.5 - 15.5 g/dLFulton State Hospital GRANULOCYTES # BLD AUTO0.11HighNICamden General Hospital GRANULOCYTES/LEUK NFR BLD AUTO1.1 %[facility]ok[facility] CampusInterpretation and review of laboratory resultsAbnormal [facility]ok[facility] CampusLymphocytes/100 WBC (Bld)22.2 %[facility] CenterH (RBC) [Entitic mass]29.7 pg26.0 - 34.0 pgSSM Saint Mary's Health CenterHC (RBC) [Mass/Vol]33.7 g/dL30.5 - 36.0 g/dLSSM Saint Mary's Health CenterV (RBC) [Entitic vol]88 fL80.0 - 100.0 fLResearch Medical Center-Brookside CampusMonocytes/100 WBC (Bld)3.5 %[facility] CampusNeutrophils/100 WBC (Bld) 71.7 %[facility] HealthcareRBC (Bld) [#/Vol]4.75 10*6/uL3.90 - 5.20 m/uLLIFEPOINT HOSPITALS HealthcareSpecimen Type: BLOOD SPECIMEN Ordering Facility: [facility] Address: [place] [address] Original Ordering Provider: FUENTES DURANCoxHealthOVSRuiz 21-95-2784BFJHSYVdrai () Office ([place]) ELANA TRAN ([id number]) 1985 F Date Time Provider Department 09/30/24 9:30 AM MARGOT LIMON During your visit today, we recorded the following information about you: Temperature Pulse Respiration Blood pressure 97.5 degrees 70/minute 16/minute 129/80 Weight Height 104.3 kg 1.626 m Margot Limon APRN.MISCELLANEOUS MACHINE OPERATOR 09/30/2024 10:24 AM Signed NAME: Leana Tran CLINIC NO.: [id number] DATE OF SERVICE: September 30, 2024 (Sonam) Some elements in this clinic note that are critical to medical decision making have been carefully reviewed and included from a prior clinic note dated: October 01, 2023 (Yves) Additional Clinicians involved in Leana Tran's care: Cas Galicia (PCP), Rajinder Collins (surgery), [...] and reports that th (more content not included)...NormalMckitrick HospitalComprehensive metabolic 2000 panelon 37-94-6886Idcunyg [Mass/Vol]4.5 g/dLNormal3.9-4.9CDayton VA Medical Center Comment on above:Order Comment: Specimen Type: BLOOD SPECIMEN Ordering Facility: [facility] Address: [address], [place] [address]Glgkjvjju By: #### 87716-2 #### [facility] CLIA [id number] [address] [place] [address] 64785WSI [Catalytic activity/Vol]74 U/GIonbdn14-936VbrriznioZanesville City Hospital on above:Order Comment: Specimen Type: BLOOD SPECIMEN Ordering Facility: [facility] Address: [address] [place], [place] [address]Performed By: #### 02057-1 #### [facility] CLIA [id number] [address] [place], [place] [address]URW [Catalytic activity/Vol]15 U/LNormal7-38[facility] on above:Order Comment: Specimen Type: BLOOD SPECIMEN Ordering Facility: [facility] Address: [address] [place], [place] [address]Performed By: #### 70951-6 #### [facility] CLIA [id number] [address] [place], [place] [address]Ckeps gap [Moles/Vol]10 mmol/LNormal8-15[facility] on above:Order Comment: Specimen Type: BLOOD SPECIMEN Ordering Facility: [facility] Address: [address] [place], [place] [address]Performed By: #### 07468-1 #### [facility] CLIA [id number] [address] [place] [address] 11248JTX [Catalytic activity/Vol]10 U/TFzl94-91SqtzblpzlZanesville City Hospital on above:Order Comment: Specimen Type: BLOOD SPECIMEN Ordering Facility: [facility] Address: [address] [place], [place] [address]Performed By: #### 34900-6 #### [facility] CLIA [id number] [address] [place], [place] [address]Zjvtrqopx [Mass/Vol]0.3 mg/dLNormal0.2-1.3CCleveland Clinic Mentor Hospital on above:Order Comment: Specimen Type: BLOOD SPECIMEN Ordering Facility: [facility] Address: [address] [place], [place] [address]Performed By: #### 81948-9 #### [facility] CLIA [id number] [address] [place] [address] 82949Vzdhzud [Mass/Vol]9.7 mg/dLNormal8.5-10.2CDayton VA Medical CenterComfresenius medical [facility] on above:Order Comment: Specimen Type: BLOOD SPECIMEN Ordering Facility: [facility] Address: [address] [place], [place] [address]Performed By: #### 65865-2 #### [facility] CLIA [id number] [address] [place], [place] [address]Dobslicc [Moles/Vol]104 mmol/WPtyjrb29-670EtfkjyvqjZanesville City Hospital on above:Order Comment: Specimen Type: BLOOD SPECIMEN Ordering Facility: [facility] Address: [address] [place], [place] [address]Performed By: #### 28353-9 #### [facility] CLIA [id number] [address] [place] [address] 85056MG2 [Moles/Vol]25 mmol/GIqtwdi34-08VhqmxiwkwMckitrick Hospital Comment on above:Order Comment: Specimen Type: BLOOD SPECIMEN Ordering Facility: [facility] Address: [address] [place], [place] [address]Performed By: #### 39266-6 #### [facility] CLIA [id number] [address] [place] [address] 06071Tymwuripsb [Mass/Vol]0.97 mg/dLHigh0.58-0.96[facility] on above:Order Comment: Specimen Type: BLOOD SPECIMEN Ordering Facility: [facility] Address: [address] [place], [place] [address]Performed By: #### 62410-9 #### [facility] CLIA [id number] [address] [place] [address] 66444kSJLvn SerPlBld CKD-EPI 879814 mL/min/1.73m???Normal>=60 [facility] on above:Order Comment: Specimen Type: BLOOD SPECIMEN Ordering Facility: [facility] Address: [address] [place], [place] [address]Result Comment: Estimated Glomerular Filtration Rate (eGFR) is calculated using the 2021 CKD-EPI cre atinine equation. This equation utilizes serum creatinine, sex, and age as parameters. The creatinine assay has traceable calibration to isotope dilution- mass spectrometry. Refer to KDIGO guidelines for clinical interpretation. In patients with unstable renal function, e.g. those with acute kidney injury, the eGFR may not accurately reflect actual GFR.Performed By: #### 18675-7 #### [facility] CLIA [id number] [address] [place] [address] 15939Tfpeegz [Mass/Vol]145 mg/xHOvhj35-11SjubfgapkMckitrick Hospital Comment on above:Order Comment: Specimen Type: BLOOD SPECIMEN Ordering Facility: [facility] Address: [address] [place], [place] [address]Abyxbe Comment: The [place] Diabetes Association (ADA) provides guidance for cutoff [...] Standards of Medical Care in Diabetes 2016, [place] [employer]. Diabetes Care. 2016.39(Suppl 1).Performed By: #### 63093-9 #### [facility] CLIA [id number] [address] [place] [address] 71540Lacmejefd [Moles/Vol]3.6 mmol/LLow3.7-5.1CDayton VA Medical CenterComment on above:Order Comment: Specimen Type: BLOOD SPECIMEN Ordering Facility: [facility] Address: [address] [place], [place] [address]Obfzubhhx By: #### 47033-9 #### [facility] CLIA [id number] [address] [place], [place] [address]Vichpwk [Mass/Vol]6.7 g/dLNormal6.3-8.0[facility] on above:Order Comment: Specimen Type: BLOOD SPECIMEN Ordering Facility: [facility] Address: [address] [place], [place] [address]Performed By: #### 66273-9 #### [facility] CLIA [id number] [address] [place], [place] [address]Taivir [Moles/Vol]139 mmol/FBosqpn283-668RvlhlluylZanesville City Hospital on above:Order Comment: Specimen Type: BLOOD SPECIMEN Ordering Facility: [facility] Address: [address] [place], [place] [address]Performed By: #### 56177-1 #### [facility] CLIA [id number] [address] [place], [place] [address]Pjfa nitrogen [Mass/Vol]19 mg/dLNormal7-21[facility] on above:Order Comment: Specimen Type: BLOOD SPECIMEN Ordering Facility: [facility] Address: [address] [place], [place] [address]Performed By: #### 72492-5 #### [facility] CLIA [id number] [address] [place], [place] [address]Qa Panel InformationOrdered By: Radiologist Radiology on 85-54-9951CXT[employer] Work Phone: no Panel Informationon 90-66-3744Jtcbdijgc Study observation (narrative)[facility] HealthcareXR Elbow - right 2 Viewson 54-98-0358Ubd [address] [address] XRay Report Signed Patient: LEANA TRAN MR#: [id number] : 1985 Acct:[id number] Age/Sex: 38 / F ADM Date: 09/29/24 Loc: LAB Attending Dr: Cas Galicia M.D. Ordering Physician: Cas Galicia M.D. Date of Service: 09/29/24 Procedure(s): XR elbow RT 2V Accession Number(s): [id number] cc: Cas Galicia M.D. [address] [id number] Patient Name: LEANA TRAN MRN: [id number] date: 1985 Sex: F Assigned Patient Location: LAB Current Patient Location: LAB Accession/Order Number: [id number] Exam Date: 09/29/2024 13:00 Report Date: 09/29/2024 13:44 At the request of: CAS GALICIA MD Procedure: XR elbow RT 2V RIGHT ELBOW - 2 views CLINICAL HISTORY: Right Forearm Pain COMPARISON: None FINDINGS: No elbow joint effusion or acute bony process. Joint spaces appear maintained. XR/XR elbow RT 2V IMPRESSION: NO ACUTE BONY PROCESS. Impression dictated by: Michael Price Jr., D.O. 09/29/2024 1:44 PM Dictation Location: [place] [address] Electronically authenticated by: [id number] Y Date: 09/29/2024 13:44 Dictated By: Michael Price M.D. Signed By: 09/29/24 1346 DD/ 1344 TD/TT: Confidential Investigator:TBHRadiology, Radiologist, - 09/29/2024 [place] [address] XRay Report Signed Patient: LEANA TRAN MR#: [id number] : 1985 Acct:[id number] Age/Sex: 38 / F ADM Date: 09/29/24 Loc: LAB Attending Dr: Cas Galicia M.D. Ordering Physician: Cas Galicia M.D. Date of Service: 09/29/24 Procedure(s): XR elbow RT 2V Accession Number(s): [id number] cc: Cas Galicia M.D. The [address] [address] Patient Name: LEANA TRAN MRN: [id number] date: 1985 Sex: F Assigned Patient Location: LAB Current Patient Location: LAB Accession/Order Number: [id number] Exam Date: 09/29/2024 13:00 Report Date: 09/29/2024 13:44 At the request of: CAS GALICIA MD Procedure: XR elbow RT 2V RIGHT ELBOW - 2 views CLINICAL HISTORY: Right Forearm Pain COMPARISON: None FINDINGS: No elbow joint effusion or acute bony process. Joint spaces appear maintained. XR/XR elbow RT 2V IMPRESSION: NO ACUTE BONY PROCESS. Impression dictated by: Michael Price Jr., D.O. 09/29/2024 1:44 PM Dictation Location: [place] [address] Electronically authenticated by: [id number] Y Date: 09/29/2024 13:44 Dictated By: Michael Price M.D. Signed By: 09/29/24 1346 DD/ 1344 TD/TT: Confidential Investigator: NIRAJ HealthcareRadiology Study observation (narrative)[facility] HealthcareXR Radius and Ulna - right 2 View[place] 14-96[place], [place] [address] XRay Report Signed Patient: LEANA TRAN MR#: [id number] : 1985 Acct:[id number] Age/Sex: 38 / F ADM Date: 09/29/24 Loc: LAB Attending Dr: Cas Galicia M.D. Ordering Physician: Cas Galicia M.D. Date of Service: 09/29/24 Procedure(s): XR forearm RT 2V Accession Number(s): [id number] cc: Cas Galicia M.D. [place] [id number] Patient Name: LEANA TRAN MRN: [id number] date: 1985 Sex: F Assigned Patient Location: LAB Current Patient Location: LAB Accession/Order Number: [id number] Exam Date: 09/29/2024 13:00 Report Date: 09/29/2024 13:43 At the request of: CAS GALICIA MD Procedure: XR forearm RT 2V RIGHT FOREARM - 2 views CLINICAL HISTORY: Fall. Arm pain COMPARISON: None FINDINGS: No focal soft tissue abnormality. No acute bony process. XR/XR forearm RT 2V IMPRESSION: NO ACUTE BONY PROCESS. Impression dictated by: Michael Price Jr., D.O. 09/29/2024 1:43 PM Dictation Location: RADIO-PC-23 Electronically authenticated by: [id number] Y Date: 09/29/2024 13:43 Dictated By: Michael Price M.D. Signed By: 09/29/24 1346 DD/ 134 TD/TT: Confidential Investigator:TBHRadiology, Radiologist, - 09/29/2024 [place] [address] XRay Report Signed Patient: LEANA TRAN MR#: [id number] : 1985 Acct:[id number] Age/Sex: 38 / F ADM Date: 09/29/24 Loc: LAB Attending Dr: Cas Galicia M.D. Ordering Physician: Cas Galicia M.D. Date of Service: 09/29/24 Procedure(s): XR forearm RT 2V Accession Number(s): [id number] cc: Cas Galicia M.D. [place] [address] Patient Name: LEANA TRAN MRN: [id number] date: 1985 Sex: F Assigned Patient Location: LAB Current Patient Location: LAB Accession/Order Number: [id number] Exam Date: 09/29/2024 13:00 Report Date: 09/29/2024 13:43 At the request of: CAS GALICIA MD Procedure: XR forearm RT 2V RIGHT FOREARM - 2 views CLINICAL HISTORY: Fall. Arm pain COMPARISON: None FINDINGS: No focal soft tissue abnormality. No acute bony process. XR/XR forearm RT 2V IMPRESSION: NO ACUTE BONY PROCESS. Impression dictated by: Michael Price Jr., D.O. 09/29/2024 1:43 PM Dictation Location: RADIO-PC-23 Electronically authenticated by: [id number] Y Date: 09/29/2024 13:43 Dictated By: Michael Price M.D. Signed By: 09/29/24 134 DD/ 42 TD/TT: Confidential Investigator: NIRAJ HealthcareARLETTE Wrist - right 2 Viewson 37-68[place], [place] [address] XRay Report Signed Patient: LEANA TRAN MR#: [id number] : 1985 Acct:[id number] Age/Sex: 38 / F ADM Date: 09/29/24 Loc: LAB Attending Dr: Cas Galicia M.D. Ordering Physician: Cas Galicia M.D. Date of Service: 09/29/24 Procedure(s): XR wrist RT 2V Accession Number(s): [id number] cc: Cas Galicia M.D. The [place] [address] Patient Name: LEANA TRAN MRN: [id number] date: 1985 Sex: F Assigned Patient Location: LAB Current Patient Location: LAB Accession/Order Number: [id number] Exam Date: 09/29/2024 13:00 Report Date: 09/29/2024 13:43 At the request of: CAS GALICIA MD Procedure: XR wrist RT 2V RIGHT WRIST - 2 views CLINICAL HISTORY: Fall. Right wrist pain COMPARISON: None FINDINGS: No focal soft tissue abnormality. No acute bony process. Joint spaces appear maintained. No bony erosions. XR/XR wrist RT 2V IMPRESSION: NO ACUTE BONY PROCESS. Impression dictated by: Michael Price Jr., DKerriOKerri 09/29/2024 1:43 PM Dictation Location: [place] [address] Electronically authenticated by: [id number] Y Date: 09/29/2024 13:43 Dictated By: Michael Price M.D. Signed By: 09/29/241344 DD/ 42 TD/TT: Confidential Investigator:RINAadiologsilvio Radiologist, - 09/29/2024 [place] [address] XRay Report Signed Patient: LEANA TRAN MR#: [id number] : 1985 Acct:[id number] Age/Sex: 38 / F ADM Date: 09/29/24 Loc: LAB Attending Dr: Cas Galicia M.D. Ordering Physician: Cas Galicia M.D. Date of Service: 09/29/24 Procedure(s): XR wrist RT 2V Accession Number(s): [id number] cc: Cas Galicia M.D. [place] [address] Patient Name: LEANA TRAN MRN: [id number]:[id number] date: 1985 Sex: F Assigned Patient Location: LAB Current Patient Location: LAB Accession/Order Number: [id number] Exam Date: 09/29/2024 13:00 Report Date: 09/29/2024 13:43 At the request of: CAS GALICIA MD Procedure: XR wrist RT 2V RIGHT WRIST - 2 views CLINICAL HISTORY: Fall. Right wrist pain COMPARISON: None FINDINGS: No focal soft tissue abnormality. No acute bony process. Joint spaces appear maintained. No bony erosions. XR/XR wrist RT 2V IMPRESSION: NO ACUTE BONY PROCESS. Impression dictated by: Michael Price Jr., D.O. 09/29/2024 1:43 PM Dictation Location: [place] [address] Electronically authenticated by: [id number] Y Date: 09/29/2024 13:43 Dictated By: Michael Price M.D. Signed By: 09/29/24 1345 DD/ 1343 TD/TT: Confidential Investigator: NIRAJ HealthcareXR Wrist - right 2 ViewsOrdered By: Radiologist Radiology on 95-43-2816L[facility]O [facility] Work Phone: Orders Onlyon 17-39-0944Eruwqh [id number] Leana Tran 1985 F Date Provider Department Center 09/24/2024 KENYA ORTIZ [facility] Heart[facility] Family History Problem [...] Sister Alive Mother's Sister Alive Mother's Sister AliveNormalUniversity [facility] State Harding HospitalReminderson 09-17-2024 RemindersReminders From: CHELO Overton APRN, [place] X To: EU - Administrative; Sent: 10/16/2023 12:40:17 EDT Show up: 06/14/2024 12:40:00 EDT Subject: Reminder Message Reminder Message Please schedule for 1 year follow-up Patient is scheduled for 10/09/20[facility] 1020[facility] RemindersReminders From: Matt Nguyễn To: EU - Administrative; [...] ) Other: PROVIDER RELATED REMINDER:_ ( ) Design Drafter Chief ( ) Call Pharmacy ( ) Call Lab ( ) Other: Special Instructions:_ Comments:_ LVM w/ pt stating they needed to call and get appointment scheduled. Patient has an appointment on 10/09/2024 1020am.[facility] X-ray reportOrdered By: Michael Price on 83-80-9499[facility] Main [address] [address] XRay Report Signed Patient: Leana Tran MR#: [id number] : 1985 Acct:[id number] Age/Sex: 38 / F ADM Date: 5 Loc: XDUCLY Room: Type: REG CLI Attending Dr: Oliva Becerra APRN, EXTERIOR DOOR INSTALLER-C Copies to: Oliva Becerra APRN~ Ordering Provider: [...] Jr., D.OKerri 09/08/2024 12:32 PM Dictation Location: [place] [address] Transcribed By: [facility] 09/08/24 1232 Dictated By: Michael Price Jr, DO 09/08/24 1223 Signed By: 09/08/24 1232 [facility] ColumbusXR forearm RT 2V*on 42-40-6556UD forearm RT 2V* [facility] Main [place] [address] [place] [address] XRay Report Signed Patient: Leana Tran MR#: [id number] : 1985 Acct:[id number] Age/Sex: 38 / F ADM Date: 09/08/24 Loc: XDUC Room: Type: [facility] CLI Attending Dr: Oliva Becerra APRN, EXTERIOR DOOR INSTALLER-C Copies to: Oliva Becerra APRN Ordering Provider: [...] PROCESS. Impression dictated by: Michael Price Jr., Csasidy 09/08/2024 12:32 PM Dictation Location: [facility]--23 Transcribed By: [facility] 09/08/24 1232 Dictated By: Michael Price Jr, DO 09/08/24 1223 Signed By: 09/08/24 1232[facility] Physician GroupOrders Onlyon 23-14-1638Eiupqh [id number] Leana Tran 1985 F Date Provider Department Center 08/25/2024 ABIEL NICHOLS [facility] HeartVAS Family History Problem [...] Sister Alive Mother's Sister Alive Mother's Sister AliveNormalUniversity [facility] State Harding HospitalCardiac echo study ProcedureOrdered By: Gosia Rnagel on 13-44-3192Bq Root Index0.78 cm/m2Bon [employer] Work Phone: Aortic Root1.6 cmBon [employer] Work Phone: Aortic Sinus Valsalva2.6 cmBon [employer] Work Phone: Aortic Sinus Valsalva Index1.27 cm/m2Bon [employer] Work Phone: [phone] Aorta2.2 cmBon [employer] Work Phone: [phone] Aorta Index1.07 cm/m2Bon [employer] Work Phone: [phone] Cusp Mmode1.8 cmBon [employer] Work Phone: [phone] Mean Dzkzjzlj9ywImSlk [employer] Work Phone: [phone] Mean Velocity1 m/sBon [employer] [employer] [facility] Work Phone: [phone] Peak Fuvtdeej74tmIhBbv [employer] Work Phone: [phone] Peak Velocity1.6 m/sBon [employer] Work Phone: [phone] Velocity Ratio0.75Bon [employer] Work Phone: [phone] VTI34.3 cmBon [employer] Work Phone: [phone] surface area Derived from formula2.14 m2Bon [employer] Work Phone: [phone]/E' Lateral5.41Bon [employer] Work Phone: [phone] BP60 %55 - 100 %[employer] Work Phone: [phone] Nkzomvclx08 %[employer] Work Phone: [phone]. RA Fbvnnaks9uxJwYvs [employer] Work Phone: [phone] Shortening 2D32 %28 - 44 %[employer] Work Phone: [phone] cm0.6 - 0.9 cmBon [employer] Work Phone: [phone] Area 2C16.6 cm2Bon [employer] Work Phone: [phone] Area 4C19.3 cm2Bon [employer] Work Phone: [phone] Major Axis5.5 cmZentyal Work Phone: LA Minor Axis4.9 cmBon [facility] Work Phone: LA Volume BP50 mL22 - 52 mLBon [facility] Work Phone: [phone] Volume Index BP24 ml/m216 - 34 ml/m2Bon [facility] Work Phone: [phone] Volume Index MOD A2C21 ml/m216 - 34 ml/m2Bon [facility] Work Phone: LA Volume Index MOD A4C25 ml/m216 - 34 ml/m2Bon [facility] Work Phone: [phone] Volume MOD A2C44 mL22 - 52 mLBon [facility] Work Phone: LA Volume MOD A4C51 mL22 - 52 mLBon [facility] Work Phone: LV E' Lateral Cvdawyio56.6 cm/sBon [facility] Work Phone: [phone] EDV A2C86 mLNextpeer [facility] Work Phone: LV EDV Z2P913 mLNextpeer [facility] Work Phone: LV EDV Index A2C42 mL/m2Bon [facility] Work Phone: LV EDV Index A4C49 mL/m2Bon [facility] Work Phone: LV Ejection Fraction A2C63 %[employer] [facility] Work Phone: LV Ejection Fraction A4C59 %Bon [facility] Work Phone: LV ESV A2C32 mLBon [facility] Work Phone: LV ESV A4C42 mLNextpeer [facility] Work Phone: [phone] ESV Index A2C16 mL/m2Bon [facility] Work Phone: LV ESV Index A4C20 mL/m2Bon [facility] Work Phone: LV Mass 2D122.3 g67 - 162 gBon [employer] Work Phone: LV Mass 2D Index59.6 g/m243 - 95 g/m2Bon [employer] Work Phone: [phone] RWT Ratio0.34Bon [employer] Work Phone: [phone] cm3.9 - 5.3 cmBon [employer] Work Phone: [phone] Index2.29 cm/m2Bon [employer] Work Phone: [phone] cmBon [employer] Work Phone: LVIDs Index1.56 cm/m2Bon [employer] Work Phone: LVOT Mean Wcdywbgt6nlSqQodZentyal Work Phone: LVOT Peak Wswikzuy2nhSrPelZentyal Work Phone: LVOT Peak Velocity1.2 m/sBon [employer] Work Phone: LVOT VTI26.3 cmBon [employer] Work Phone: LVOT:AV VTI Index0.77Bon [employer] Work Phone: [phone] cm0.6 - 0.9 cmB[facility] Md [facility] Center [employer] Work Phone: MV A Velocity0.54 m/sBon [employer] Work Phone: MV E Velocity0.79 m/sBon [employer] Work Phone: MV E Wave Deceleration Ajmw820 msBon [employer] Work Phone: MV E/A1.46Bon [employer] Work Phone: PR Max Velocity0.7 m/sBon [facility] Work Phone: [phone] Artery DAK7foFdRzd [employer] Work Phone: [phone] Max Velocity1 m/sBon [facility] Work Phone: PV Peak Cyvkmzvn1ouWqSpk [employer] Phone: [phone] [employer] Phone: Sinotubular Junction1.8 cmBon [employer] Phone: TAPSE2.4 cm1.7 cmBon [employer] Phone: TR Max Velocity2.07 m/sBon [employer] Phone: TR Peak Aehucizi51ezKsLxx [employer] Phone: Bon [employer] Phone: Cardiac echo study Procedureon 07-82-3068Udcp Ventricle: Normal left ventricular systolic function with [...] Details Image quality: adequate. No contrast was given.[facility] CV CPACSRadiology Study observation (narrative)Hong Bowden Ponukt98kr [phone] faxed the order to number given.[facility]36[facility] scheduling is requesting the order to be faxed to their facility. Please send to fax#[phone]. Thank you This phone message was created by the Ambulatory float staff. If you need youth support worker follow up regarding this patient, please make your appropriate clinic staff member aware. Thank you. [facility] Telemedicineon [id number] Leana Tran 1985 F Date Provider Department Center 08/12/2024 MACRINA FISCHER [facility] HeartVAS Family History Problem [...] Sister Alive Mother's Sister Alive Level of Service:23436 HI OFFICE/OUTPATIENT ESTABLISHED LOW MDM 20 MIN Reason for Visit and Comments: Telehealth Audio/video Visit [871][facility] CBC WITH AUTO DIFFon 75-85-3860XKREJOTFY ABSOLUTE QUWJ6ESKR Healthcare Basophils/100 WBC (Bld)0.6 %0.2 - 2.0 %NOMS HealthcareEosinophils/100 WBC (Bld) 2.6 %0.9 - 7.0 %NOMS HealthcareErythrocyte distribution width (RBC) [Ratio]11.6 %11.0 - 15.0 %NOM HealthcareHematocrit (Bld) [Volume fraction]43.2 %36.0 - 48.0 %NOM HealthcareHemoglobin (Bld) [Mass/Vol]14.7 g/dL12.0 - 16.0 g/dLNODC HealthcareIMMATURE GRANULOCYTES ABS AUTO0.02NOMS HealthcareImmature granulocytes/100 WBC (Bld)0.3 %0.0 - 0.5 %NOMS HealthcareLYMPHOCYTES ABSOLUTE AUTO1.6NOMS HealthcareLymphocytes/100 WBC (Bld)22.8 %20.5 - 60.0 %[facility]okside CampusMCH (RBC) [Entitic mass]29.6 pg26.7 - 34.0 pgNOSt. Joseph Medical CenterMCHC (RBC) [Mass/Vol]34 g/dL29.9 - 35.2 g/dLResearch Medical Center-Brookside CampusMCV (RBC) [Entitic vol]86.9 fL 81.0 - 99.0 fLResearch Medical Center-Brookside CampusMONOCYTES ABSOLUTE AUTO0.4NOMS [facility] Monocytes/100 WBC (Bld)5.7 %1.7 - 12.0 %NOMNevada Regional Medical CenterNEUTROPHILS ABSOLUTE AUTO 4.7NOMS HealthcareNeutrophils/100 WBC (Bld)68 %43.0 - 75.0 %[facility] Platelet mean volume (Bld) [Entitic vol]10.1 fL9.5 - 13.5 fLResearch Medical Center-Brookside CampusTBH EO #0.2NOMS HealthcareTBH AOJ417BGDR [facility] HospitalTB RBC4.97NOMS [facility] Memorial HospitalTB WBC 6.8NOMS HealthcareCLINISYNCNOMS HealthcareOrders Onlyon 08-28-8184Wtuxrk Only [id number] Leana Tran 1985 F Date Provider Department Center 07/09/2024 KENYA ORTIZ [facility] C[facility] HeartVAS Family History Problem [...] Maternal Grandmother Son Alive Son Alive Son AliveNoalUCity Hospital36on 47-28-798267Bn is unable to find any pyridostigmine ER 180 mg in stock. She was on the short acting last time this happened. Short acting sent to the pharmacyN[facility]36Pt notified the pyridostigmine ER is on back order. She is going to call around to see if she can find it in stockNormalUniSelect Medical Specialty Hospital - TrumbullALL DHEA SULFATEon 57-24-5381ODDM-EUOEMSJ70.8 ug/dL57.3 - 279.2 ug/dLNOMS Healthcare Comment on above:Performed at: [address] [id number] Internet Site Designer: Zacarias Sage PhD, Phone: [phone] No Panel Informationon 54-74-0079WIJKNWYOKUWTP HealthcareSRMCOH TESTOSTERONE FREE/TOT EQUILIBon 66-65-4794ZEMR TESTOSTERONE(DIRECT)1.2 pg/mL0.0 - 4.2 pg/mL [facility] HealthcareComment on above:Performed at: [address] [id number] Internet Site Designer: Zacarias Sage PhD, Phone: [phone] Performed at: [address] [id number] Internet Site Designer: Guerrero Bojorquez MD, Phone: [phone] Testosterone [Mass/Vol]12 ng/dL8 - 60 ng/dLNODC HealthcareALLERGENS W/COMP RFLX AREA 5on 40-61-1148PKFPM DESCRIPTIONComment.NOMS HealthcareComment on above: Levels of Specific IgE Class Description of Class ----- < 0.10 0 Negative 0.10 - 0.31 0/I Equivocal/Low 0.32 - 0.55 I Low 0.56 - 1.40 II Moderate 1.41 - 3.90 III High 3.91 - 19.00 IV Very High 19.01 - 100.00 V Very High >100.00 Very High O989-QKX D PTERONYSSINUS<0.10Class 0 kU/LNOMS SupuwajujcZ594-ZNB D FARINAE<0.10 Class 0 kU/LNOMS SokbhcdhiyX455-VQJ CAT DANDER<0.10Class 0 kU/LNOMS Healthcare F991-KGY DOG DANDER<0.10Class 0 kU/LNOMS BzmplzswrpN579-SFA MOUSE URINE<0.10 Class 0 kU/LNOMS HealthcareComment on above:Performed at: [address] [id number] Internet Site Designer: Guerrero Bojorquez MD, Phone: [phone] B288-URW BERMUDA GRASS<0.10Class 0 kU/LNOMS BqqeehnlbiF119-LAI LAURYN GRASS <0.10Class 0 kU/LNOMS SsmxxtlviaI628-SMO COCKROACH, BHUTANESE<0.10Class 0 kU/LNOMS HealthcareIMMUNOGLOBULIN E, TOTAL<2AbnormalNOMS HealthcareInterpretation and review of laboratory resultsAbnormalNOMS JnsrxaauqvR060-XLP PENICILLIUM CHRYSOGEN<0.10Class 0 kU/LNOMS UwfdwfcclcF593-VPG CLADOSPORIUM HERBARUM<0.10 Class 0 kU/LNOMS FijulwqcveT993-PMX ASPERGILLUS FUMIGATUS<0.10Class 0 kU/LNOMS GkqqtilvrqE437-ARD ALTERNARIA ALTERNATA<0.10Class 0 kU/LNOMS GurtagpesvA769-AQO MAPLE/BOX ELDER<0.10Class 0 kU/LNOMS KowjbsjzdoY268-OJY COMMON SILVER BIRCH<0.10 Class 0 kU/LNOMS UpagbnyxueT516-KAH CEDAR, MOUNTAIN<0.10Class 0 kU/LNOMS BmpgyzeabjL951-NOT OAK, WHITE<0.10Class 0 kU/LNOMS HjwvmtqwhxV132-GNV ELM, FILIPINO<0.10Class 0 kU/LNOMS TzxyvmuizfF249-UKO WALNUT<0.10Class 0 kU/LNOMS ApovjbhesiF032-ZPM MAPLE LEAF [place]<0.10Class 0 kU/LNOMS XxfngfkgtlL700-QES C[place]<0.10Class 0 kU/LNOMS VhaptbcfwtX173-GHR REEMA, WHITE<0.10Class 0 kU/L NOMS BzgskiytblS814-SBP PECAN, HICKORY<0.10Class 0 kU/LNOMS CbfnnpiqpsM706-QEW WHITE MULBERRY<0.10Class 0 kU/LNOMS QajxjgoqfwB419-CFS RAGWEED, SHORT<0.10Class 0 kU/LNOMS YzxwcykuuiW520-FNU THISTLE, ICELANDIC<0.10Class 0 kU/LNOMS Healthcare U897-AIK PIGWEED, COMMON<0.10Class 0 kU/LNOMS XnvlhktqvuT109-YQQ SHEEP SORREL <0.10Class 0 kU/LNOMS HealthcareCLINISYNCNOMS HealthcareMLR HEMOGLOBIN A1Con 22-32-5666Uelrnub [Mass/Vol]120 mg/dLNODC YvncfxldxmEuZ6r (Bld) [Mass fraction] 5.8 %4.5 - 6.2 %NOM HealthcareComment on above:ADA RECOMMENDED LIMIT 4.0 - 6.0 ADA THERAPEUTIC TARGET < 7.0 ACTION SUGGESTED > 7.0 CLINISYNCNOMS HealthcareFREE T3on 34-21-6773Azdd T3 [Mass/Vol]2.70 pg/mLNormal 2.50-3.90ProSelect Medical Specialty Hospital - AkronComment on above:Performed By: #### 3016-3, 3050-0, 3023-08 #### [facility] ([id number]) [address] [place] [address], [address] [place], [place] [address]VRKT T4on 33-63-0401Nkhl T4 [Mass/Vol]0.75 ng/dLNormal0.61-1.60 [facility] County HospitalComment on above:Performed By: #### 3016-3, 305-0, 7 #### [facility] ([id number]) [address] [place] [address], [address] [place], [place] [address]TRD Qnon 47-59-2341JEP9.44 uIU/mLLow0.49-4.67ProSelect Medical Specialty Hospital - AkronComment on above:Performed By: #### 3016-3, 305-0, 3024-7 #### [facility] ([id number]) [address] [facility], [address] [place], [place] [address]Vlurgcu (Rubeola) Imon 88-75-6136Jzpjrjh (Rubeola) Im2.45Normal >1.09[facility] Samaritan HospitalComment on above:Result Comment: Interpretation: IMMUNE Reference Range: <0.91 Not Immune 0.91-1.09 Equivocal >1.09 ImmunePerformed By: #### TASHA, BALTAZAR, VZI, GRICELDA #### [facility] [address] [place] [id number] Internet Site Designer: YUDY Fishumps,Immun,Abon 32-00-3388Youpv,Immun,Ab3.42 Normal>1.09[facility] Samaritan HospitalComment on above:Result Comment: Interpretation: IMMUNE Reference Range: <0.91 Not Immune 0.91-1.09 Equivocal >1.09 ImmunePerformed By: #### TASHA, BALTAZAR, VZI, GRICELDA #### [address] [id number] Internet Site Designer: VIKY Fsih Immunityon 88-61-8104UN Immunity1.85Normal >1.09[facility] Samaritan HospitalComfresenius medical care [facility] on above:Result Comment: Interpretation: IMMUNE Reference Range: <0.91 Not Immune 0.91-1.09 Equivocal >1.09 ImmunePerformed By: #### TASHA, BALTAZAR, VZI, GRICELDA #### [address] [address] Internet Site Designer: LATIA Fish RUBELLA AB, IGGon 42-06-7290UJRZ RUBELLA AB, IGG62.7IU/mLNOMS HealthcareComment on above: <10 NON REACTIVE Negative for Anti-Rubella IgG >=10 REACTIVE Positive for Anti Rubella IgG The presence of IgG antibody to Rubella virus is an indication of previous exposure either by prior infection or vaccination. Original Ordering Provider: PRESTON VOGTMCBRIDE OR[facility] HealthcareRubella Ab, IgGon 13-72-5391Fbtlaur Ab, IgG62.7 IU/mLNormalGood Samaritan HospitalComment on above:Result Comment: <10 NON REACTIVE Negative for Anti-Rubella IgG >=10 REACTIVE Positive for Anti Rubella IgG The presence of IgG antibody to Rubella virus is an indication of previous exposure either by prior infection or vaccination.Performed By: #### TASHA, BALTAZAR, VZI, GRICELDA #### [facility] [address] [place] [address] Internet Site Designer: Emanuel Reaves, MDRubella antibody, IgGon 54-25-9923Yiqsahh virus IgG IA Ql62.7IU/mLBon [facility] Southeast OhioComfresenius medical [facility] on above: <10 NON REACTIVE Negative for Anti-Rubella IgG >=10 REACTIVE Positive for Anti Rubella IgG The presence of IgG antibody to Rubella virus is an indication of previous exposure either by prior infection or vaccination. Hong [facility] Hospital - Southeast OhioIG,APTIMA HPV,AGE GDLNon 24-11-7140USQ GDLN ACOG TESTINGNote.[facility]okside CampusComment on above:TESTS RESULT FLAG UNITS REF RANGE LAB Clinician Provided Cytology Information Source.............Vagina No. of containers..01 ThinPrep Vial Age Algo ACOG Ashia... FLAG LEGEND: L-Low Normal,H-High Normal,LL-Alert Low,HH-Alert High <-Panic Low,>-Panic High,A-Abnormal,AA-Critical Abnormal Performed at: 01 =[address] [place] [address] Maryjo Saez MD, HPV APTIMANegativeNegativeNOMS HealthcareComment on above:This nucleic acid amplification test detects fourteen high- risk HPV types (16,18,31,33,35,39,45,51,52,56,58,59,66,68) without differentiation. Performed at: =[address] [id number] Internet Site Designer: Maryjo Saez MD, Phone: [phone] Performed at: [address] [id number] Internet Site Designer: Maryjo Saez MD, Phone: [phone] IGP, APTIMA HPV, RFX 16/18,45Note.NOMS HealthcareComment on above:TESTS RESULT FLAG UNITS REF RANGE LAB DIAGNOSIS: 02 NEGATIVE FOR INTRAEPITHELIAL LESION OR MALIGNANCY. Specimen adequacy: 02 Satisfactory for evaluation. No endocervical component is identified. Performed by: 02 Kelly Burns, Light Bulb Replacer (ASCP) . 02 Note: Note 02 The [...] <-Panic Low,>-Panic High,A-Abnormal,AA-Critical Abnormal Performed at: [address] [address] Maryjo Saez MD, SPATULA-ALONE VAGINA CLINISYNCNOMS HealthcareUS PELVIS W/ TRANSVAGINALon 34-61-9578RjfVale, [place] [address] Ultrasound Report Signed Patient: LEANA TRNA MR#: [id number] : 1985 Acct:[id number] Age/Sex: 37 / F ADM Date: 11/26/23 Loc: US Attending Dr: Rubens Tim D.O. Ordering Physician: Rubens Tim D.O. Date of Service: 11/26/23 Procedure(s): US pelvis w/ transvaginal Accession Number(s): [id number] cc: Rubens Tim D.O.; Cas Galicia M.D. [address] [address] Patient Name: LEANA TRAN MRN: [id number] date: 1985 Sex: F Assigned Patient Location: Current Patient Location: Accession/Order Number: [id number] Exam Date: 11/26/2023 07:40 Report Date: 11/27/2023 10:36 At the request of: RUBENS TIM Procedure: US pelvis w/ transvaginal EXAMINATION: [...] Signed By: 11/27/23 1038 DD/ 1036 TD/TT: Confidential Investigator:TBHRadiology, Radiologist, - 11/27/2023 [place] [address] Ultrasound Report Signed Patient: LEANA TRAN MR#: [id number] : 1985 Acct:[id number] Age/Sex: 37 / F ADM Date: 11/26/23 Loc: US Attending Dr: Rubens Tim D.O. Ordering Physician: Rubens Tim D.O. Date of Service: 11/26/23 Procedure(s): US pelvis w/ transvaginal Accession Number(s): [id number] cc: Rubens Tim D.O.; Cas Galicia M.D. The [place] [id number] Patient Name: LEANA TRAN MRN: [id number] date: 1985 Sex: F Assigned Patient Location: Current Patient Location: Accession/Order Number: [id number] Exam Date: 11/26/2023 07:40 Report Date: 11/27/2023 10:36 At the request of: RUBENS TIM Procedure: US pelvis w/ transvaginal EXAMINATION: [...] Signed By: 11/27/23 1038 DD/ 1036 TD/TT: Confidential Investigator: [facility] MEDICAL CENTERDominick HealthcareRadiology Study observation (narrative)NOMS HealthcareUS PELVIS W/ TRANSVAGINALOrdered By: Radiologist Radiology on 82-38-4323JINK Healthcare Work Phone: aLL THYROXINE (T4) FREEon 44-09-6547Dked T4 [Mass/Vol] 0.89 ng/dL0.76 - 1.46 ng/dLNODC HealthcareCLINISYNCNOMS HealthcareCT ABDOMEN/PELVIS WO CONTon 99-95-[address] [address] [address] Scan Report Signed Patient: LEANA TRAN MR#: [id number] : 1985 Acct:[id number] Age/Sex: 37 / F ADM Date: 10/09/23 Loc: CT 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 [address] [address] Patient Name: LEANA TRAN MRN: [id number] date: 1985 Sex: F Assigned Patient Location: CT Current Patient Location: CT Accession/Order Number: [id number] Exam Date: 10/09/2023 14:16 Report Date: 10/09/2023 15:39 At the request of: BAUTISTA OVERTON Procedure: CT abdomen pelvis wo con EXAMINATION: [...] Small fat-containing umbilical hernia. Electronically authenticated by: LUIS HILL Date: 10/09/2023 15:39 Dictated By: Luis Hill M.D. Signed By: 10/09/23 1542 DD/ 1539 TD/TT: Confidential Investigator:TBHRadiology, Radiologist, - 10/09/2023 [place] [address] CT Scan Report Signed Patient: LEANA TRAN MR#: [id number] : 1985 Acct:[id number] Age/Sex: 37 / F ADM Date: 10/09/23 Loc: CT Attending Dr: Bautista Overton NP Ordering Physician: Bautista Overton NP Date of Service: 10/09/23 Procedure(s): CT abdomen pelvis wo con Accession Number(s): [id number] cc: Cas Galicia M.D. [address] [address] Patient Name: LEANA TRAN MRN: [id number] date: 1985 Sex: F Assigned Patient Location: CT Current Patient Location: CT Accession/Order Number: [id number] Exam Date: 10/09/2023 14:16 Report Date: 10/09/2023 15:39 At the request of: BAUTISTA OVERTON Procedure: CT abdomen pelvis wo con EXAMINATION: [...] Small fat-containing umbilical hernia. Electronically authenticated by: LUIS HILL Date: 10/09/2023 15:39 Dictated By: Luis Hill M.D. Signed By: 10/09/23 1542 DD/ 1539 TD/TT: Confidential Investigator: NIRAJ HealthcareRadiology Study observation (narrative)[facility] HealthcareCT ABDOMEN/PELVIS WO CONTOrdered By: Radiologist Radiology on 30-92-9592ETAL [employer] Work Phone: ccf CBC W AUTO DIFF BLDon 61-07-1074Lcjukpouo/100 WBC (Bld)0.7 %[facility] BASOPHILS # BLD AUTO0.04NINFWestern Missouri Medical Center DIFFERENTIAL METHOD BLDAutoNOMS [facility] EOSINOPHIL # BLD AUTO0.15NINFWestern Missouri Medical Center LYMPHOCYTES # BLD AUTO1.23NOPike County Memorial Hospital MONOCYTES # BLD AUTO 0.24NISouthern [facility] Medical [facility] NEUTROPHILS # BLD AUTO4.06Research Psychiatric CenterF NRBC # BLD AUTO<0.01NINFWestern Missouri Medical Center NRBC/100 WBC BLD-RTO0.0/100 WBCWestern Missouri Medical Center PLATELET # BLD VQOD060UDCYPike County Memorial Hospital PMV BLD AUTO10.0 fL9.0 - 12.7 fLWestern Missouri Medical Center WBC # BLD AUTO5.75NOSt. Joseph Medical CenterEosinophils/100 WBC (Bld)2.6 %[facility]okside CampusErythrocyte distribution width (RBC) [Ratio]11.6 %11.5 - 15.0 %[facility]okside CampusHematocrit (Bld) [Volume fraction]41.7 %36.0 - 46.0 %Research [facility] CampusHemoglobin (Bld) [Mass/Vol]14.7 g/dL11.5 - 15.5 g/dLFulton State Hospital GRANULOCYTES # BLD AUTO0.03NICamden [facility] Hospital GRANULOCYTES/LEUK NFR BLD AUTO0.5 %[facility] CampusLymphocytes/100 WBC (Bld)21.4 %[facility] CenterH (RBC) [Entitic mass]30.2 pg26.0 - 34.0 pgSSM Saint Mary's Health CenterHC (RBC) [Mass/Vol]35.3 g/dL 30.5 - 36.0 g/dLSSM Saint Mary's Health CenterV (RBC) [Entitic vol]85.8 fL80.0 - 100.0 fLResearch Medical Center-Brookside CampusMonocytes/100 WBC (Bld)4.2 %[facility] CampusNeutrophils/100 WBC (Bld) 70.6 %[facility] CampusRBC (Bld) [#/Vol]4.86 10*6/uL3.90 - 5.20 m/uLResearch Medical Center-Brookside CampusSpecimen Type: BLOOD SPECIMEN Ordering Facility: [facility] Address: [place] [address] Original Ordering Provider: FUENTES FORMERLY [facility] HOSPITALMIRELLADelaware Psychiatric Center TOMOSYNTHESIS DIAGNOSTIC BIon 39-50-2884X[address] [address] Mammography Report Signed Patient: LEANA TRAN MR#: [id number] : 1985 Acct:[id number] Age/Sex: 37 / F ADM Date: 08/31/23 Loc: MAMMO Attending Dr: Rubens Tim D.O. Ordering Physician: Rubens Tim D.O. Results: Date of Service: 08/31/23 Follow Up: Procedure(s): MM tomosynthesis diagnostic BI Accession Number(s): [id number] cc: Rubens Tim D.O.; Cas Galicia M.D. Patient Name: LEANA TRAN MR#: [id number] : 1985 Exam Date: 08/31/2023 Ordering Doctor: [...] cervical cancer at age 48. LOCATION: [facility] BREAST COMPOSITION: There are scattered [...] BIOPSIED. Dictated by: Husam Kim M.D. on 08/31/2023 at 13:27 Approved by: Husam Kim M.D. on 08/31/2023 at 13:39 Dictated By: Husam Kim M.D. Signed By: 08/31/23 1348 DD/ 9755 TD/TT: Confidential Investigator:TBHRadiology, Radiologist, MD - 08/31/2023 [place] [address] Mammography Report Signed Patient: LEANA TRAN MR#: [id number] : 1985 Acct:[id number] Age/Sex: 37 / F ADM Date: 08/31/23 Loc: MAMMO Attending Dr: Rubens Tim D.O. Ordering Physician: Rubens Tim D.O. Results: Date of Service: 08/31/23 Follow Up: Procedure(s): MM tomosynthesis diagnostic BI Accession Number(s): [id number] cc: Rubens Tim D.O.; Cas Galicia M.D. Patient Name: LEANA TRAN MR#: [id number] : 1985 Exam Date: 08/31/2023 Ordering Doctor: [...] cervical cancer at age 48. LOCATION: [facility] BREAST COMPOSITION: There are scattered [...] BIOPSIED. Dictated by: Husam Kim M.D. on 08/31/2023 at 13:27 Approved by: Husam Kim M.D. on 08/31/2023 at 13:39 Dictated By: Husam Kim M.D. Signed By: 08/31/23 1340 DD/ 1339 TD/TT: Confidential Investigator: NIRAJ Maher Panel InformationOrdered By: Radiologist Radiology on 16-88-5133TXVP [employer] Work Phone: No Panel Informationon 25-14-0898Pxsczsrbh Study observation (narrative)NIRAJ Giles BREAST BI LIMITEDon 62-91-8892[place], [place] [address] Ultrasound Report Signed Patient: LEANA TRAN MR#: [id number] : 1985 Acct:[id number] Age/Sex: 37 / F ADM Date: 08/31/23 Loc: MAMMO Attending Dr: Rubens Tim D.O. Ordering Physician: Rubens Tim D.O. Date of Service: 08/31/23 Procedure(s): US breast BI limited Accession Number(s): [id number] cc: Rubens Tim D.O.; Cas Galicia M.D. Patient Name: LEANA TRAN MR#: [id number] : 1985 Exam Date: 08/31/2023 Ordering Doctor: [...] cervical cancer at age 48. LOCATION: [facility] BREAST COMPOSITION: There are scattered [...] BIOPSIED. Dictated by: Husam Kim M.D. on 08/31/2023 at 13:27 Approved by: Husam Kim M.D. on 08/31/2023 at 13:39 Dictated By: Husam Kim M.D. Signed By: 08/31/23 1340 DD/ 1339 TD/TT: Confidential Investigator:TBHRadiology, Radiologist, - 08/31/2023 [place] [address] Ultrasound Report Signed Patient: LEANA TRAN MR#: [id number] : 1985 Acct:[id number] Age/Sex: 37 / F ADM Date: 08/31/23 Loc: MAMMO Attending Dr: Rubens Tim D.O. Ordering Physician: Rubens Tim D.O. Date of Service: 08/31/23 Procedure(s): US breast BI limited Accession Number(s): [id number] cc: Rubens Tim D.O.; Cas Galicia M.D. Patient Name: LEANA TRAN MR#: [id number] : 1985 Exam Date: 08/31/2023 Ordering Doctor: [...] cervical cancer at age 48. LOCATION: [facility] BREAST COMPOSITION: There are scattered [...] BIOPSIED. Dictated by: Husam Kim M.D. on 08/31/2023 at 13:27 Approved by: Husam Kim M.D. on 08/31/2023 at 13:39 Dictated By: Husam Kim M.D. Signed By: 08/31/23 1340 DD/ 1339 TD/TT: Confidential Investigator: NIRAJ Giles PELVIS W/ TRANSVAGINALon 33-04-9884[place], [place] [address] Ultrasound Report Signed Patient: LEANA TRAN MR#: [id number] : 1985 Acct:[id number] Age/Sex: 37 / F ADM Date: 08/30/23 Loc: US Attending Dr: Rubens Tim D.O. Ordering Physician: Rubens Tim D.O. Date of Service: 08/30/23 Procedure(s): US pelvis w/ transvaginal Accession Number(s): [id number] cc: Rubens Tim D.O.; Cas Galicia M.D. The [address] [id number] Patient Name: LEANA TRAN MRN: [id number] date: 1985 Sex: F Assigned Patient Location: US Current Patient Location: US Accession/Order Number: [id number] Exam Date: 08/30/2023 08:55 Report Date: 08/30/2023 10:22 At the request of: RUBENS TIM Procedure: US pelvis w/ transvaginal EXAMINATION: [...] Signed By: 08/30/23 1025 DD/ 1022 TD/TT: Confidential Investigator:BRODIEHRadiology, Radiologist, - 08/30/2023 [place] [address] Ultrasound Report Signed Patient: LEANA TRAN MR#: [id number] : 1985 Acct:[id number] Age/Sex: 37 / F ADM Date: 08/30/23 Loc: US Attending Dr: Rubens Tim D.O. Ordering Physician: Rubens Tim D.O. Date of Service: 08/30/23 Procedure(s): US pelvis w/ transvaginal Accession Number(s): [id number] cc: Rubens Tim D.O.; Cas Galicia M.D. The [address] [address] Patient Name: LEANA TRAN MRN: [id number] date: 1985 Sex: F Assigned Patient Location: US Current Patient Location: US Accession/Order Number: [id number] Exam Date: 08/30/2023 08:55 Report Date: 08/30/2023 10:22 At the request of: RUBENS TIM Procedure: US pelvis w/ transvaginal EXAMINATION: [...] Signed By: 08/30/23 1025 DD/ 1022 TD/TT: Confidential Investigator: NOMDominick HealthcareRadiology Study observation (narrative)NOMS HealthcareUS PELVIS W/ TRANSVAGINALOrdered By: Radiologist Radiology on 81-50-2193IIZP [employer] Work Phone: US RENAL BIon 49-14-9312Qvc[place], [place] [address] Ultrasound Report Signed Patient: LEANA TRAN MR#: [id number] : 1985 Acct:[id number] Age/Sex: 37 / F ADM Date: 08/21/23 Loc: US Attending Dr: Loraine SERRA Ordering Physician: Loraine Rubalcava Date of Service: 08/21/23 Procedure(s): US renal BI Accession Number(s): [id number] cc: Cas Galicia M.D.; Loraine Rubalcava [address] [address] Patient Name: LEANA TRAN MRN: [id number] date: 1985 Sex: F Assigned Patient Location: US Current Patient Location: US Accession/Order Number: [id number] Exam Date: 08/21/2023 10:50 Report Date: 08/21/2023 11:25 At the request of: LORAINE RUBALCAVA Procedure: US renal BI EXAMINATION: US renal [...] Signed By: 08/21/23 1128 DD/ 1125 TD/TT: Confidential Investigator:TBHRadiology, Radiologist, - 08/21/2023 [place] [address] Ultrasound Report Signed Patient: LEANA TRAN MR#: [id number] : 1985 Acct:[id number] Age/Sex: 37 / F ADM Date: 08/21/23 Loc: US Attending Dr: Loraine SERRA Ordering Physician: Loraine Rubalcava Date of Service: 08/21/23 Procedure(s): US renal BI Accession Number(s): [id number] cc: Cas Galicia M.D.; Loraine Rubalcava The [address] [address] Patient Name: LEANA TRAN MRN: [id number] date: 1985 Sex: F Assigned Patient Location: US Current Patient Location: US Accession/Order Number: [id number] Exam Date: 08/21/2023 10:50 Report Date: 08/21/2023 11:25 At the request of: LORAINE RUBALCAVA Procedure: US renal BI EXAMINATION: US renal [...] Signed By: 08/21/23 1128 DD/ 1125 TD/TT: Confidential Investigator: [facility] HealthcareRadiology Study observation (narrative)NOM HealthcareUS RENAL BI Ordered By: Radiologist Radiology on 59-64-5509IOLKResearch Medical Center[facility] Campus Work Phone: US Thyroid glandon 49-99-3099[place]mV[place], [place] [address] Ultrasound Report Signed Patient: LEANA TRAN MR#: [id number] : 1985 Acct:[id number] Age/Sex: 37 / F ADM Date: 05/10/23 Loc: RAD Attending Dr: Sarah Best NP Ordering Physician: Sarah Best NP Date of Service: 05/10/23 Procedure(s): US thyroid Accession Number(s): [id number] cc: Cas Galicia M.D.; Sarah Best NP The [place] [address] Patient Name: LEANA TRAN MRN: [id number] date: 1985 Sex: F Assigned Patient Location: RAD Current Patient Location: RAD Accession/Order Number: [id number] Exam Date: 05/10/2023 09:04 Report Date: 05/10/2023 12:35 At the request of: SARAH BEST Procedure: US thyroid EXAMINATION: US thyroid [...] hypervascularity or suspicious nodules. Electronically authenticated by: HUSAM KIM Date: 05/10/2023 12:35 Dictated By: Husam Kim M.D. Signed By: 05/10/23 1237 DD/ 1235 TD/TT: Confidential Investigator:TBHRadiology, Radiologist, MD - 05/10/2023 [place] [address] Ultrasound Report Signed Patient: LEANA TRAN MR#: [id number] : 1985 Acct:[id number] Age/Sex: 37 / F ADM Date: 05/10/23 Loc: RAD Attending Dr: Sarah Best NP Ordering Physician: Sarah Best NP Date of Service: 05/10/23 Procedure(s): US thyroid Accession Number(s): [id number] cc: Cas Galicia M.D.; Sarah Best NP [place] [id number] Patient Name: LEANA TRAN MRN: [id number] date: 1985 Sex: F Assigned Patient Location: RAD Current Patient Location: RAD Accession/Order Number: [id number] Exam Date: 05/10/2023 09:04 Report Date: 05/10/2023 12:35 At the request of: SARAH BEST Procedure: US thyroid EXAMINATION: US thyroid [...] hypervascularity or suspicious nodules. Electronically authenticated by: HUSAM KIM Date: 05/10/2023 12:35 Dictated By: Husam Kim M.D. Signed By: 05/10/23 1237 DD/ 1235 TD/TT: Confidential Investigator: NIRAJ HealthcareRadiology Study observation (narrative)NIRAJ DaleyUS Thyroid glandOrdered By: Radiologist Radiology on 42-88-8987HISH [employer] Work Phone: Hemoglobin F2xVovndie By: Giana Kong on 70-21-7053RZCA HealthcareCELIAC ANTIBODIES PROFILEon 19-93-9301Jttbghkftk Gliadin Abs, IgA26 unitsCritically high0-[facility] TrumbullComment on above:Result Comment: Negative 0 - 19 Weak Positive 20 - 30 Moderate to Strong Positive >30Performed By: #### CBC #### [facility] [address] [place] [address] [address] Nilton MccallDeamidated Gliadin Abs, IgG5 unitsNormal0-[facility] Comment on above:Result Comment: Negative 0 - 19 Weak Positive 20 - 30 Moderate to Strong Positive >30Performed By: #### CBC #### [facility] [address] [address] [address] Nilton Delvallendomysial Antibody IgANegativeNormalNegativeThe [facility] CenterComment on above:Performed By: #### CBC #### [facility] [address] [address] [address] Nilton MccallImmunoglobulin A, Qn, Quodl512 mg/qNDsdppk59-701Rgs [facility] CenterComment on above:Performed By: #### CBC #### [facility] [address] [place] [address] Dr. Nilton Thomas-Transglutaminase (tTG) IgA<2Txqfmt7-2Qxx [facility] Comment on above:Result Comment: Negative 0 - 3 Weak Positive 4 - 10 Positive >10 . Tissue Transglutaminase (tTG) has been identified as the endomysial antigen. Studies have demonstr- ated that endomysial IgA antibodies have over 99% specificity for gluten sensitive enteropathy.Performed By: #### CBC #### [facility] [address] [place] [address] Dr. Nilton Thomas-Transglutaminase (tTG) IgG3 U/mLNormal0-5ThSelect Medical Specialty Hospital [facility] Comment on above:Result Comment: Negative 0 - 5 Weak Positive 6 - 9 Positive >9Performed By: #### CBC #### [facility] [address] [place] [address] Dr. Nilton Carter AUTO DIFFon 02-22-7620WDQP #0.0 103/ulNormal0.0-0.1The [facility] CenterComment on above:Performed By: #### CBC #### [facility] [address] [place] [address] Dr. Nilton MccallBasophils/100 WBC (Bld)0.5 %Normal0.2-2.0[facility] Comment on above:Performed By: #### CBC #### [facility] [address] [place] [address] Dr. Nilton DelvalleO #0.2 103/ulNormal0.0-0.7The Jim HospitalComment on above: Performed By: #### CBC #### [facility] [address] [place] [address] Dr. Nilton Delvalleosinophils/100 WBC (Bld)2.8 %Normal0.9-7.0The [facility] on above:Performed By: #### CBC #### [facility] [address] [place] [address] Dr. Nilton Delvallerythrocyte distribution width (RBC) [Ratio]11.8 %Avkwxp08.0-15.0 The [facility] CenterComment on above:Performed By: #### CBC #### [facility] [address] [place] [address] Dr. Nilton MccallHematocrit (Bld) [Volume fraction]41.8 %Ezslcp76.0-48.0The [facility] CenterComment on above:Performed By: #### CBC #### [facility] [address] [place] [address] Dr. Nilton MccallHemoglobin (Bld) [Mass/Vol]14.2 g/cZZdicvy73.0-16.0The [facility] CenterComment on above:Performed By: #### CBC #### [facility] [address] [place] [address] Dr. Nilton Deleon #0.03 10e3/ulNormal0.00-0.03The [facility] CenterComment on above:Performed By: #### CBC #### [facility] [address] [place] [address] Dr. Nilton Deleon %0.4 %Normal0.0-0.5The [facility] CenterComment on above: Performed By: #### CBC #### [facility] [address] [place] [address] Dr. Nilton JamesH #2.3 103/ulNormal1.2-3.8The [facility] CenterComment on above:Performed By: #### CBC #### [facility] [address] [place] [address] Dr. Nilton Ayonmphocytes/100 WBC (Bld)28.8 %Dyojsn93.5-60.0The [facility] CenterComment on above:Performed By: #### CBC #### [facility] [address] [place] [address] Dr. Nilton Singh DIFF REQNONormalThe [facility] CenterComment on above: Performed By: #### CBC #### [facility] [address] [place] [address] Dr. Nilton Young (RBC) [Entitic mass]29.4 okLlsgow46.7-34.0The [facility] CenterComment on above:Performed By: #### CBC #### [facility] [address] [place] [address] Dr. Nilton Young (RBC) [Mass/Vol]34.0 g/mFYmlcqa85.9-35.2The [facility] CenterComment on above:Performed By: #### CBC #### [facility] [address] [place] [address] Dr. Nilton Hi (RBC) [Entitic vol]86.5 qDBakfkp85.0-99.0The [facility] CenterComment on above:Performed By: #### CBC #### [facility] [address] [place] [address] Dr. Nilton Rodgers #0.4 103/ulNormal0.3-0.8The [facility] CenterComment on above:Performed By: #### CBC #### [facility] [address] [place] [address] Dr. Nilton Fuentesocytes/100 WBC (Bld)4.5 %Normal1.7-12.0The [facility] Comment on above:Performed By: #### CBC #### [facility] [address] [place] [address] Dr. Nilton Valente #5.0 103/ulNormal1.4-6.5The [facility] CenterComment on above:Performed By: #### CBC #### [facility] [address] [place] [address] Dr. Yilan ChangNeutrophils/100 WBC (Bld)63.0 %Hdbjdq41.0-75.0The [facility] CenterComment on above:Performed By: #### CBC #### [facility] [address] [place] [address] Dr. Nilton Herculeslet mean volume (Bld) [Entitic vol]9.5 fLNormal9.5-13.5The [facility] CenterComment on above:Performed By: #### CBC #### [facility] [address] [place] [address] Dr. Nilton MccallPLT279 103/yoNorxgm144-165Nsg [facility] CenterComfresenius [facility] on above: Performed By: #### CBC #### [facility] [address] [place] [address] Dr. Nilton MccallRBC4.83 106/ulNormal4.20-5.40The [facility] CenterComment on above:Performed By: #### CBC #### [facility] [address] [place] [address] Dr. Nilton MccallWBC7.9 103/ulNormal4.0-11.0The [facility] CenterComment on above: Performed By: #### CBC #### [facility] [address] [place] [address] Dr. Nilton MccallGLYCOHEMOGLOBIN A1Con 84-48-1124HIN RECOMMENDATIONSEE BELOWNormal The [facility] CenterComfresenius [facility] on above:Result Comment: ADA RECOMMENDED LIMIT 4.0 - 6.0 ADA THERAPEUTIC TARGET < 7.0 ACTION SUGGESTED > 7.0Performed By: #### CMP #### [facility] [address] [place] [address] Dr. Nilton MccallGlucose [Mass/Vol]117 mg/dLNormalThSelect Medical Specialty Hospital - Columbus SouthComfresenius [facility] on above:Performed By: #### CMP #### [facility] [address] [place] [address] Dr. Nilton MccallHbA1c (Bld) [Mass fraction]5.7 %Normal4.5-6.2The [facility] on above:Performed By: #### CMP #### [facility] [address] [place] [address] Dr. Nilton Benoit B12 AND FOLATEon 01-10-8350Oxqvrffvk (Vitamin B12) [Mass/Vol] 539.0 pg/pAOtszwk339.0-986.0[facility] on above:Performed By: #### CBC #### [facility] [address] [place] [address] Dr. Nilton MccallFOLATE16.40 ng/mLNormal8.60-58.90The [facility] CenterComment on above:Performed By: #### CBC #### [facility] [address] [place] [address] Dr. Nilton MccallVITAMIN D 25 OHon 27-43-9157YBN D 25-OH41.2 ng/mLNormalEast [facility] Hospital on above:Performed By: #### CBC #### [facility] [address] [place] [address] Dr. Nilton Benoit D [facility] [facility]Comf[facility] on above: Result Comment: <20 ng/mL Vit D deficient 20 - <30 ng/mL Vit D insufficient 30 - 100 ng/mL Vit D sufficient >100 ng/mL Potential ToxicityPerformed By: #### CBC #### [facility] [address] [place] [address] Dr. Nilton Palacios T3on 99-21-7847DRED T32.39 pg/mlLNormal2.18-3.98[facility] on above:Performed By: #### TSH, FT3 #### [facility] [address] [place] [address] Dr. Nilton Palacios T4on 14-04-8776Hofq T4 [Mass/Vol]0.89 ng/dLNormal0.76-1.46 [facility] on above:Performed By: #### CMP #### [facility] [address] [place] [address] Dr. Nilton ManHogaviota 80-16-9756QFH3.431 uIU/mLNormal0.358-3.740[facility] on above:Performed By: #### TSH, FT3 #### [facility] [address] [place], [place] [address] Dr. Nilton Monahan TRANSMISSION ELECTRON MICROSCOPIC STUDYon 03-29-2022 PLATELET TEMPerMayo Clinic Health System– Northland on above:Order Comment: Specimen Type: BLOOD SPECIMEN Ordering Facility: [facility] Address: [address] [place] [id number] By: #### PLTEMS #### [facility] CLIA [id number] [address] [place], [place] [address]TORE INTERPRETATIONSEE [facility] on above:Order Comment: Specimen Type: BLOOD SPECIMEN Ordering Facility: [facility] Address: [address] [place], [place] [address] Comment: IMPRESSION: Platelet transmission electron microscopy (PTEM) studies demonstrate [...] developed and its performance characteristics determined by [facility] in a manner consistent with CLIA requirements. This test has not been cleared or approved by the U.S. Food and Drug Administration. Test Performed by: [facility] [address] [place] [address] Internet Site Designer: Shree Norwood M.D. Ph.D.; CLIA# [id number] By: #### PLTEMS #### [facility] CLIA [id number] [address] [place], [place] [address]Q7, Freeon 36-14-3466Wlgpsjnpd, Free1.34 ng/dL0.93 - 1.70 ng/dLBON PION[facility] with Reflexon 47-98-0292Cymxigehdwuttl and review of laboratory resultsAbnormalBON [facility] Qn0.08 m[IU]/LLowBON MADISON COMMUNITY HOSPITALUS KIDNEYSon 59-25-6457LM KIDNEYSEXAMINATION: US KIDNEYS HISTORY: Elodia hematuria COMPARISON: 10/20/2020, [...] Electronically authenticated by: BELÉN ANDRADE Date: 2021-12-26 07:22[facility] AUTO DIFFon 68-06-8292YSUS #0.0 103/ulNormal0.0-0.1The [facility] CenterComment on above:Performed By: #### CMP #### [facility] [address] [place], [place] [address] Dr. Nilton Tsangsophils/100 WBC (Bld)0.5 %Normal0.2-2.0[facility] Comment on above:Performed By: #### CMP #### [facility] [address] [place] [address] Dr. Nilton Whitley #0.2 103/ulNormal0.0-0.7The [facility] CenterComment on above: Performed By: #### CMP #### [facility] [address] [place] [address] Dr. Nilton Delvalleosinophils/100 WBC (Bld)3.2 %Normal0.9-7.0The [facility] Comment on above:Performed By: #### CMP #### [facility] [address] [place] [address] Dr. Nilton Delvallerythrocyte distribution width (RBC) [Ratio]11.9 %Nzwlfr60.0-15.0 The [facility] CenterComment on above:Performed By: #### CMP #### [facility] [address] [place] [address] Dr. Nilton MccallHematocrit (Bld) [Volume fraction]42.8 %Mobefw65.0-48.0The [facility] CenterComment on above:Performed By: #### CMP #### [facility] [address] [place] [address] Dr. Nilton MccallHemoglobin (Bld) [Mass/Vol]14.4 g/pUYmbmfx92.0-16.0The [facility] CenterComment on above:Performed By: #### CMP #### [facility] [address] [place] [address] Dr. Nilton Deleon #0.02 10e3/ulNormal0.00-0.03The [facility] CenterComment on above:Performed By: #### CMP #### [facility] [address] [place] [address] Dr. Nilton Deleon %0.3 %Normal0.0-0.5The [facility] CenterComment on above: Performed By: #### CMP #### [facility] [address] [place] [address] Dr. Nilton AyonMPH #1.4 103/ulNormal1.2-3.8The [facility] CenterComment on above:Performed By: #### CMP #### [facility] [address] [place] [address] Dr. Nilton Ayonmphocytes/100 WBC (Bld)22.3 %Hkpliy19.5-60.0The [facility] Rehabilitationment on above:Performed By: #### CMP #### [facility] [address] [place] [address] Dr. Nilton NessUAL DIFF REQNONormalThe [facility] CenterComment on above: Performed By: #### CMP #### [facility] [address] [place] [address] Dr. Nilton Young (RBC) [Entitic mass]28.9 juLgspud29.7-34.0The [facility] CenterComment on above:Performed By: #### CMP #### [facility] [address] [place] [address] Dr. Nilton Young (RBC) [Mass/Vol]33.6 g/jZEsdxmv27.9-35.2The [facility] CenterComment on above:Performed By: #### CMP #### [facility] [address] [place] [address] Dr. Nilton Young (RBC) [Entitic vol]85.9 rEXqqicj88.0-99.0The [facility] CenterComment on above:Performed By: #### CMP #### [facility] [address] [place] [address] Dr. Nilton Rodgers #0.3 103/ulNormal0.3-0.8The [facility] CenterComment on above:Performed By: #### CMP #### [facility] [address] [place] [address] Dr. Nilton Fuentesocytes/100 WBC (Bld)4.9 %Normal1.7-12.0The [facility] Comment on above:Performed By: #### CMP #### [facility] [facility] [address] [place] [address] Dr. Nilton Valente #4.4 103/ulNormal1.4-6.5The [facility] CenterComment on above:Performed By: #### CMP #### [facility] [address] [place] [address] Dr. Nilton MccallNeutrophils/100 WBC (Bld)68.8 %Sxduhd42.0-75.0[facility] on above:Performed By: #### CMP #### [facility] [address] [place] [address] Dr. Nilton MccallPlatelet mean volume (Bld) [Entitic vol]9.9 fLNormal9.5-13.5The [facility] CenterComment on above:Performed By: #### CMP #### [facility] [address] [place] [address] Dr. Nilton MccallPLT237 103/muWokpvt245-703Wbn [facility] on above: Performed By: #### CMP #### [facility] [address] [place] [address] Dr. Nilton MccallRBC4.98 106/ulNormal4.20-5.40The [facility] on above:Performed By: #### CMP #### [facility] [address] [place] [address] Dr. Nilton MccallWBC6.3 103/ulNormal4.0-11.0The [facility] on above: Performed By: #### CMP #### [facility] [address] [place] [address] Dr. Nilton MccallGLYCOHEMOGLOBIN A1Con 22-77-0468KSC RECOMMENDATIONSEE BELOWNormal The [facility] CenterComfresenius [facility] on above:Result Comment: ADA RECOMMENDED LIMIT 4.0 - 6.0 ADA THERAPEUTIC TARGET < 7.0 ACTION SUGGESTED > 7.0Performed By: #### PT, PTT #### [facility] [address] [place] [address] Dr. Nilton MccallGlucose [Mass/Vol]120 mg/dLNormalThe [facility] on above:Performed By: #### PT, PTT #### [facility] [address] [place] [address] Dr. Nilton MccallHbA1c (Bld) [Mass fraction]5.8 %Normal4.5-6.2The [facility] CenterComment on above:Performed By: #### PT, PTT #### [facility] [address] [address] [address] Nilton TavaresID PROFILEon 72-71-8635WMEU-HDL RATIO NORMSBlanchard Valley Health System Bluffton HospitalComfresenius [facility] on above:Result Comment: 3.3 - 4.4 LOW RISK 4.4 - 7.1 AVERAGE RISK 7.1 - 11.0 MODERATE RISK >11.0 HIGH RISKPerformed By: #### PT, PTT #### [facility] [address] [address] [address] Nilton MccallCholesterol [Mass/Vol]225 mg/dLCritically high<=200The [facility] CenterComfresenius [facility] on above:Performed By: #### PT, PTT #### [facility] [address] [address] [address] Nilton MccallCholesterol in HDL [Mass/Vol]32 mg/dLCritically fqm69-76Vas [facility] CenterComfresenius [facility] on above:Performed By: #### PT, PTT #### [facility] [address] [address] [address] Nilton Paredesesterol in LDL [Mass/Vol]132.8 mg/dLMarietta Osteopathic ClinicComfresenius [facility] on above:Performed By: #### PT, PTT #### [facility] [address] [address] [address] Nilton Paredesesterfederico.total/Cholesterol in HDL [Mass ratio]7.0 {ratio} NormalThe [facility] CenterComfresenius [facility] on above:Performed By: #### PT, PTT #### [facility] [address] [address] [address] Nilton MccallHDJoshua NORMAL> or = 60 mg/dl - LOW CARDIOVASCULAR RISK <40 mg/dl - HIGH CARDIOVASCULAR RISKMarietta Osteopathic ClinicComfresenius [facility] on above:Performed By: #### PT, PTT #### [facility] [address] [address] [address] Nilton MccallLDL CALC NORMALSEE BELOWNoThe Bellevue HospitalComment on above:Result Comment: <100 mg/dl OPTIMAL 100 - 129 mg/dl NEAR OR ABOVE OPTIMAL 130 - 159 mg/dl BORDERLINE HIGH 160 - 189 mg/dl HIGH >190 mg/dl VERY HIGH Performed By: #### PT, PTT #### [facility] [address] [place] [address] Dr. Nilton MccallTriglyceride [Mass/Vol]301 mg/dLCritically high<=150The [facility] on above:Performed By: #### PT, PTT #### [facility] [address] [place] [address] Dr. Nilton MccallVLDL CALC60.2 mg/dLUniversity Hospitals Conne[facility] on above: Performed By: #### PT, PTT #### [facility] [address] [place] [address] Dr. Nilton Price PROFILEon 89-98-3136Cdyeulq [Mass/Vol]4.0 g/dLNormal3.4-5.0 The [facility] on above:Performed By: #### PT, PTT #### [facility] [address] [place] [address] Dr. Nilton MccallAlbumin/Globulin [Mass ratio]1.1 {ratio}NormalThe [facility] on above:Performed By: #### PT, PTT #### [facility] [address] [place] [address] Dr. Nilton Ibarra [Catalytic activity/Vol]70 U/KErjvvg94-831Gma [facility] on above:Performed By: #### PT, PTT #### [facility] [address] [place] [address] Dr. Nilton Hanks [Catalytic activity/Vol]30 U/QEasrqd48-85Iek [facility] on above:Performed By: #### PT, PTT #### [facility] [address] [place] [address] Dr. Nilton MccallAST [Catalytic activity/Vol]15 U/ZLzztyw92-34Lmh [facility] on above:Performed By: #### PT, PTT #### [facility] [address] [address] [address] Nilton HagerI, CONJUGATED0.1 mg/dLNormal0.0-0.2The [facility] Comment on above:Performed By: #### PT, PTT #### [facility] [address] [place] [address] Dr. Nilton MccallBilirubin [Mass/Vol]0.3 mg/dLNormal0.2-1.0[facility] Comment on above:Performed By: #### PT, PTT #### [facility] [address] [place] [address] Dr. Nilton MccallGlobulin (S) [Mass/Vol]3.5 g/dLNormalThe [facility] CenterComment on above:Performed By: #### PT, PTT #### [facility] [address] [place] [address] Dr. Nilton MccallProtein [Mass/Vol]7.5 g/dLNormal6.4-8.2[facility] Comment on above:Performed By: #### PT, PTT #### [facility] [address] [place] [address] Dr. Nilton MccallPROF CHEM 8 (BAS METB)on 44-06-7488Skdnf gap [Moles/Vol]7.2 mmol/LNormalSelect Medical Specialty Hospital - TrumbullComment on above:Performed By: #### PT, PTT #### [facility] [address] [place] [address] Dr. Nilton MccallCalcium [Mass/Vol]9.1 mg/dLNormal8.5-10.1[facility] Comment on above:Performed By: #### PT, PTT #### [facility] [address] [place] [address] Dr. Nilton MccallChloride [Moles/Vol]104 mmol/JKtssng39-559VdoSelect Medical Specialty Hospital - [facility] Comment on above:Performed By: #### PT, PTT #### [facility] [address] [place] [address] Dr. Nilton MccallCO2 [Moles/Vol]29.7 mmol/UBitemw44.0-32.0The [facility] Comment on above:Performed By: #### PT, PTT #### [facility] [address] [address] [address] Nilton MccallCreatinine [Mass/Vol]0.97 mg/dLNormal0.55-1.02The [facility] CenterComment on above:Performed By: #### PT, PTT #### [facility] [address] [address] [address] Nilton DelvalleGFR-AF FILIPINO>60Normal>=60The [facility] CenterComment on above:Performed By: #### PT, PTT #### [facility] [address] [place] [address] Dr. Nilton DelvalleGFR-NON AF FILIPINO>60Normal>=60The [facility] CenterComment on above:Performed By: #### PT, PTT #### [facility] [address] [address] [address] Nilton MccallGlucose [Mass/Vol]92 mg/rNArmwko84-075Spv [facility] Comment on above:Performed By: #### PT, PTT #### [facility] [address] [place] [address] Dr. Nilton MccallPotassium [Moles/Vol]3.9 mmol/LNormal3.5-5.1[facility] Comment on above:Performed By: #### PT, PTT #### [facility] [address] [address] [address] Nilton MccallSodium [Moles/Vol]137 mmol/ILdjkhb920-586Ual [facility] Comment on above:Performed By: #### PT, PTT #### [facility] [address] [address] [address] Nilton MccallUrea nitrogen [Mass/Vol]14.0 mg/dLNormal7.0-18.0The [facility] CenterComment on above:Performed By: #### PT, PTT #### [facility] [address] [place] [address] Dr. Nilton MccallUrea nitrogen/Creatinine [Mass ratio]14.4 mg/mgNoThe Bellevue HospitalComment on above:Performed By: #### PT, PTT #### [facility] [address] [place] [address] Dr. Nilton ManHogaviota 40-23-6403HTY3.340 uIU/mLCritically low0.358-3.740The [facility] CenterComment on above:Performed By: #### PT, PTT #### [facility] [address] [place] [address] Dr. Nilton MccallVITAMIN D 25 OHon 56-72-0596NUT D 25-OH44.3 ng/mLNormalThe [facility] CenterComment on above:Performed By: #### PT, PTT #### [facility] [address] [place] [address] Dr. Nilton Benoit D RANGESSEE BELOWMarietta Osteopathic ClinicComment on above: Result Comment: <20 ng/mL Vit D deficient 20 - <30 ng/mL Vit D insufficient 30 - 100 ng/mL Vit D sufficient >100 ng/mL Potential ToxicityPerformed By: #### PT, PTT #### [facility] [address] [place] [address] Dr. Nilton MccallCULTURE URINEon 15-71-9081ZZJVABV URINECulture Observations: HEAVY GROWTH OF MIXED GENITAL CHANCE. NO POTENTIAL PATHOGENS SEEN.NormalThe [facility] CenterComment on above:Performed By: #### PT, PTT #### [facility] [address] [place] [address] Dr. Nilton Carter AUTO DIFFon 82-53-0856JCTB #0.0 103/ulNormal0.0-0.1The [facility] CenterComment on above:Performed By: #### PT, PTT #### [facility] [address] [place] [address] Dr. Nilton MccallBasophils/100 WBC (Bld)0.6 %Normal0.2-2.0[facility] Comment on above:Performed By: #### PT, PTT #### [facility] [address] [place] [address] Dr. Nilton Whitley #0.2 103/ulNormal0.0-0.7The [facility] CenterComment on above: Performed By: #### PT, PTT #### [facility] [address] [place] [address] Dr. Nilton Delvalleosinophils/100 WBC (Bld)2.6 %Normal0.9-7.0The [facility] Comment on above:Performed By: #### PT, PTT #### [facility] [address] [place] [address] Dr. Nilton Delvallerythrocyte distribution width (RBC) [Ratio]11.9 %Tpgypp79.0-15.0 [facility] Rehabilitationment on above:Performed By: #### PT, PTT #### [facility] [address] [place] [address] Dr. Nilton MccallHematocrit (Bld) [Volume fraction]39.7 %Qfwrus01.0-48.0The [facility] CenterComment on above:Performed By: #### PT, PTT #### [facility] [address] [place] [address] Dr. Nilton MccallHemoglobin (Bld) [Mass/Vol]13.8 g/tPOyokbj46.0-16.0The [facility] CenterComment on above:Performed By: #### PT, PTT #### [facility] [address] [place] [address] Dr. Nilton Deleon #0.03 10e3/ulNormal0.00-0.03The [facility] Rehabilitationment on above:Performed By: #### PT, PTT #### [facility] [address] [place] [address] Dr. Nilton Deleon %0.5 %Normal0.0-0.5The [facility] Rehabilitationment on above: Performed By: #### PT, PTT #### [facility] [address] [place] [address] Dr. Nilton Oneil #1.7 103/ulNormal1.2-3.8The [facility] HospitalComment on above:Performed By: #### PT, PTT #### [facility] [address] [place] [address] Dr. Nilton Ayonmphocytes/100 WBC (Bld)26.0 %Yidpny89.5-60.0The [facility] CenterComment on above:Performed By: #### PT, PTT #### [facility] [address] [place] [address] Dr. Nilton Singh DIFF REQNONormalThe [facility] CenterComment on above: Performed By: #### PT, PTT #### [facility] [address] [place] [address] Dr. Nilton Young (RBC) [Entitic mass]29.6 doWnheql71.7-34.0The [facility] CenterComment on above:Performed By: #### PT, PTT #### [facility] [address] [place] [address] Dr. Nilton Young (RBC) [Mass/Vol]34.8 g/bCZqgrof41.9-35.2The [facility] CenterComment on above:Performed By: #### PT, PTT #### [facility] [address] [place] [address] Dr. Nilton Hi (RBC) [Entitic vol]85.0 kAIlxniq46.0-99.0The [facility] CenterComment on above:Performed By: #### PT, PTT #### [facility] [address] [place] [address] Dr. Nilton Rodgers #0.3 103/ulNormal0.3-0.8The [facility] Rehabilitationment on above:Performed By: #### PT, PTT #### [facility] [address] [place] [address] Dr. Nilton Fuentesocytes/100 WBC (Bld)5.1 %Normal1.7-12.0The [facility] on above:Performed By: #### PT, PTT #### [facility] [address] [place] [address] Dr. Yilan ChangNEUT #4.2 103/ulNormal1.4-6.5The [facility] CenterComment on above:Performed By: #### PT, PTT #### [facility] [address] [place] [address] Dr. Nilton Dunnutrophils/100 WBC (Bld)65.2 %Jyydme07.0-75.0The [facility] CenterComment on above:Performed By: #### PT, PTT #### [facility] [address] [place] [address] Dr. Nilton MccallPlatelet mean volume (Bld) [Entitic vol]9.4 fLCritically low 9.5-13.5The [facility] CenterComment on above:Performed By: #### PT, PTT #### [facility] [address] [place] [address] Dr. Nilton MccallPLT232 103/wzLwcfdh862-669Ult [facility] CenterComment on above: Performed By: #### PT, PTT #### [facility] [address] [place] [address] Dr. Nilton MccallRBC4.67 106/ulNormal4.20-5.40The [facility] CenterComment on above:Performed By: #### PT, PTT #### [facility] [address] [place] [address] Dr. Nilton MccallWBC6.4 103/ulNormal4.0-11.0The [facility] CenterComment on above: Performed By: #### PT, PTT #### [facility] [address] [place] [address] Dr. Nilton MccallCT ABD/PELVIS WO CONon 18-88-3447HH ABD/PELVIS WO CONEXAMINATION: CT ABD/PELVIS WO CON, 11/14/2021 1:06 PM [...] Electronically authenticated by: BELÉN ANDRADE Date: 2021-11-14 14:24[facility] URINE PROFILEon 38-11-4842Oiiklwcmm Ql (U)NegativeNormal NEGATIVESelect Medical Specialty Hospital - TrumbullComment on above:Performed By: #### CBC #### [facility] [address] [place] [address] Dr. Nilton Duncan (U)CLEARNormalCLEARSelect Medical Specialty Hospital - TrumbullComment on above: Performed By: #### CBC #### [facility] [address] [place] [address] Dr. Nilton Jacobson (U)LT. YELLOWNormalYELLOWSelect Medical Specialty Hospital - TrumbullComment on above:Performed By: #### CBC #### [facility] [address] [place] [address] Dr. Nilton Sotelo micrscopic examination will be performed if indicated. NormalThe [facility] CenterComment on above:Performed By: #### CBC #### [facility] [address] [place] [address] Dr. Nilton MccallGlucose Ql (U)NegativeNormalNEGATIVESelect Medical Specialty Hospital - TrumbullComment on above:Performed By: #### CBC #### [facility] [address] [place] [address] Dr. Nilton MccallHemoglobin Ql (U)NegativeNormalNEGATIVEMercy Health St. [place] [facility] on above:Performed By: #### CBC #### [facility] [address] [place] [address] Dr. Nilton Bella Ql (U)NegativeNormalNEGATIVESelect Medical Specialty Hospital - TrumbullComment on above:Performed By: #### CBC #### [facility] [address] [place] [address] Dr. Nilton MccallLEUKOCYTESNegativeNormalNEGATIVEThe [facility] CenterComment on above:Performed By: #### CBC #### [facility] [address] [place] [address] Dr. Nilton Browertrite Ql (U)NegativeNormalNEGATIVEThe [facility] HospitalComment on above:Performed By: #### CBC #### [facility] [address] [place] [address] Dr. Nilton MccallpH (U)6.0 [pH]Normal5-9The [facility] CenterComment on above: Performed By: #### CBC #### [facility] [address] [place] [address] Dr. Nilton MccallSPEC GRAVITY1.772Mfqqtz1.005-<=1.025The [facility] CenterComment on above:Performed By: #### CBC #### [facility] [address] [place] [address] Dr. Nilton Garcia PROTEINNegativeNormalNEGATIVE/ TRACEThe [facility] on above:Performed By: #### CBC #### [facility] [address] [place] [address] Dr. Nilton Moore MICRO INDNOT INDICATEDNormalThe [facility] CenterComment on above:Performed By: #### CBC #### [facility] [address] [place] [address] Dr. Nilton Durhambilinogen Qn (U)0.2 {Zarina'U}/dLNormal0.2 - 1.0The [facility] CenterComment on above:Performed By: #### CBC #### [facility] [address] [place] [address] Dr. Nilton Tom 84-35-4393Vspmwntsv (Bld) [#/Vol]NegativeNormalNEGATIVEThe [facility] CenterComment on above:Performed By: #### PT, PTT #### [facility] [address] [address] [address] Nilton MccallPROF 14(COMP METB)on 51-82-2642Drjcwiz [Mass/Vol]3.8 g/dLNormal 3.4-5.0The [facility] CenterComment on above:Performed By: #### CMP #### [facility] [address] [address] [address] Nilton MccallAlbumin/Globulin [Mass ratio]1.2 {ratio}NormalThe [facility] CenterComment on above:Performed By: #### CMP #### [facility] [address] [place] [address] Dr. Nilton EliasP [Catalytic activity/Vol]65 U/XPkfasg48-491Kje [facility] CenterComment on above:Performed By: #### CMP #### [facility] [address] [place] [address] Dr. Nilton EliasT [Catalytic activity/Vol]29 U/RHtbgnx51-02Bdy [facility] CenterComment on above:Performed By: #### CMP #### [facility] [address] [place] [address] Dr. Nilton Gramajo gap [Moles/Vol]8.6 mmol/LNormalThe [facility] CenterComment on above:Performed By: #### CMP #### [facility] [address] [place] [address] Dr. Nilton MccallAST [Catalytic activity/Vol]13 U/LCritically mxg41-74Ifj [facility] CenterComment on above:Performed By: #### CMP #### [facility] [address] [place] [address] Dr. Nilton MccallBilirubin [Mass/Vol]0.4 mg/dLNormal0.2-1.0The [facility] Comment on above:Performed By: #### CMP #### [facility] [address] [place] [address] Dr. Nilton MccallCalcium [Mass/Vol]8.9 mg/dLNormal8.5-10.1The [facility] Comment on above:Performed By: #### CMP #### [facility] [address] [address] [address] Nilton MccallChloride [Moles/Vol]106 mmol/GCmoskg95-898SzySelect Medical Specialty Hospital [facility] Comment on above:Performed By: #### CMP #### [facility] [address] [address] [address] Nilton MccallCO2 [Moles/Vol]26.2 mmol/NNrjtif55.0-32.0[facility] Comment on above:Performed By: #### CMP #### [facility] [address] [address] [address] Nilton MccallCreatinine [Mass/Vol]1.12 mg/dLCritically high0.55-1.02[facility] TrumbullComment on above:Performed By: #### CMP #### [facility] [address] [place] [address] Dr. Callaway ChangEGFR-AF FILIPINO>60Normal>=60The [facility] CenterComment on above:Performed By: #### CMP #### [facility] [address] [address] [address] Nilton DelvalleGFR-NON AF XUZXQPHB57 mL/min/1.25v3Udxwtbzxdl low>=60The [facility] CenterComment on above:Performed By: #### CMP #### [facility] [address] [address] [address] Nilton MccallGlobulin (S) [Mass/Vol]3.3 g/dLNormalThe [facility] CenterComment on above:Performed By: #### CMP #### [facility] [address] [address] [address] Nilton MccallGlucose [Mass/Vol]88 mg/iAAmgcff64-634TztSelect Medical Specialty Hospital [facility] Comment on above:Performed By: #### CMP #### [facility] [address] [address] [address] Nilton MccallPotassium [Moles/Vol]3.8 mmol/LNormal3.5-5.1The [facility] Comment on above:Performed By: #### CMP #### [facility] [address] [place], [place] [address] Dr. Nilton MccallProtein [Mass/Vol]7.1 g/dLNormal6.4-8.2The [facility] Comment on above:Performed By: #### CMP #### [facility] [address] [place], [place] [address] Dr. Nilton MccallSodium [Moles/Vol]137 mmol/HHxfcnw010-316Wfw [facility] Comment on above:Performed By: #### CMP #### [facility] [address] [address] [address] Nilton MccallUrea nitrogen [Mass/Vol]14.0 mg/dLNormal7.0-18.0The [facility] CenterComment on above:Performed By: #### CMP #### [facility] [address] [address] [address] Nilton Rodriguez nitrogen/Creatinine [Mass ratio]12.5 mg/mgNormalThe [facility] CenterComment on above:Performed By: #### CMP #### [facility] [address] [address] [address] Nilton MccallMG MAMM DIAGNOSTIC 3D LARS CADon 34-52-7125GX MAMM DIAGNOSTIC 3D LARS CADPatient: LEANA TRAN Exam Date: 10/19/2021 : 1985 Gender:F Ordering : DR CAS GALICIA . Admission #: [id number] Family : Order #: [id number] CLICK HERE TO VIEW EXAM RADIOLOGY REPORT [...] cervical cancer at age 48. LOCATION: [facility] BREAST COMPOSITION: Scattered areas fibroglandular [...] by: Husam Kim M.D. on 10/19/2021 at 11:10[facility] ClinicUS BREAST LARS LIMITEDon 68-96-3138EZ BREAST LARS LIMITEDPatient: LEANA TRAN Exam Date: 10/19/2021 : 1985 Gender:F Ordering : DR CAS GALICIA . Admission #: [id number] Family : Order #: [id number] CLICK HERE TO VIEW EXAM RADIOLOGY REPORT [...] cervical cancer at age 48. LOCATION: [facility] BREAST COMPOSITION: Scattered areas fibroglandular [...] by: Husam Kim M.D. on 10/19/2021 at 11:10[facility]opathic ClinicXR CHEST 2V FRONTAL/LATon 19-62-1150Llrgdtftf ClinicLUNG DIFFUSION CAPACITY (DLCO)on 74-17-1776DZWO (ml/min/mmHg)22.00 ml/min/mmHg[facility] DLCO/VA (ml/min/mmHg/L)4.60 ml/min/mmHg/LCleveland ClinicDLCOcor (ml/min/mmHg) 21.26 ml/min/mmHgBrown Memorial HospitalERV BOX (L)0.28 LCleveland ZvukqsAZZ13-10% POST (L/S)2.46 L/SCleveland YtzcwoEQC44-77% PRE (L/S)2.13 L/SCleveland ClinicFEV1 PRE (L)2.83 LCleveland ClinicFEV1/FVC POST (%)74 %[facility] ClinicFEV1/FVC PRE (%)73 %Brown Memorial HospitalFEV1_POST (L)2.92 LCleveland ClinicFRC Box (L)1.66 LCleveland ClinicFVC POST (L)3.92 LCleveland ClinicFVC PRE (L)3.89 LCleveland ClinicIC BOX (L)2.36 LCleveland ClinicPEF POST (L/S)5.48 L/SCleveland ClinicPEF PRE (L/S)5.56 L/SCleveland ClinicRV Box (L)1.39 LCleveland ClinicRV/TLC Box (%)32 %[facility] ClinicTLC Box (L)4.36 LCleveland ClinicVA (L)4.78 LCleveland ClinicVC (L) B[address].51 LCleveland ClinicCTA CHEST WO W CONon 18-58-9443EBM CHEST WO W CON EXAMINATION: CTA CHEST [...] Electronically authenticated by: AYAKA STEARNS Date: 2021-09-22 22:30[facility] Osteopathic ClinicPROF CHEM 8 (BAS METB)on 65-17-8044Zbkoe gap [Moles/Vol]5.4 mmol/LNormalSelect Medical Specialty Hospital - TrumbullComment on above:Performed By: #### BMP #### [facility] [address] [place] [address] Dr. Nilton MccallCalcium [Mass/Vol]9.2 mg/dLNormal8.5-10.1[facility] Comment on above:Performed By: #### BMP #### [facility] [address] [place] [address] Dr. Nilton MccallChloride [Moles/Vol]102 mmol/NRuxkks13-311ZgvSelect Medical Specialty Hospital - Trumbull Comment on above:Performed By: #### BMP #### [facility] [address] [place] [address] Dr. Nilton MccallCO2 [Moles/Vol]26.1 mmol/DCpkshr62.0-32.0[facility] Comment on above:Performed By: #### BMP #### [facility] [address] [address] [address] Nilton MccallCreatinine [Mass/Vol]0.99 mg/dLNormal0.55-1.02The [facility] CenterComment on above:Performed By: #### BMP #### [facility] [address] [address] [address] Callaway ChangEGFR-AF FILIPINO>60Normal>=60The [facility] CenterComment on above:Performed By: #### BMP #### [facility] [address] [address] [address] Callaway ChangEGFR-NON AF FILIPINO>60Normal>=60The [facility] CenterComfresenius medical [facility] at [facility] on above:Performed By: #### BMP #### [facility] [address] [address] [address] Nilton MccallGlucose [Mass/Vol]113 mg/dLCritically dzkl74-583Tum [facility] CenterComfresenius [facility] on above:Performed By: #### BMP #### [facility] [address] [address] [address] Nilton MccallPotassium [Moles/Vol]3.5 mmol/LNormal3.5-5.1[facility] Comment on above:Performed By: #### BMP #### [facility] [address] [address] [address] Nilton MccallSodium [Moles/Vol]130 mmol/LCritically nvp009-858IujSelect Medical Specialty Hospital - TrumbullComfresenius [facility] on above:Performed By: #### BMP #### [facility] [address] [address] [address] Nilton MccallUrea nitrogen [Mass/Vol]13.0 mg/dLNormal7.0-18.0[facility] on above:Performed By: #### BMP #### [facility] [address] [address] [address] Nilton MccallUrea nitrogen/Creatinine [Mass ratio]13.1 mg/mgNormalThe [facility] CenterComment on above:Performed By: #### BMP #### [facility] [address] [address] [address] Nilton MccallGLYCOHEMOGLOBIN A1Con 49-30-4230JVA RECOMMENDATIONSEE BELOWNormal [facility] TrumbullComfresenius [facility] on above:Result Comment: ADA RECOMMENDED LIMIT 4.0 - 6.0 ADA THERAPEUTIC TARGET < 7.0 ACTION SUGGESTED > 7.0Performed By: #### CBC #### [facility] [address] [place] [address] Dr. Nilton MccallGlucose [Mass/Vol]140 mg/dLNoThe Bellevue HospitalComment on above:Performed By: #### CBC #### [facility] [address] [address] [address] Nilton MccallHbA1c (Bld) [Mass fraction]6.5 %Critically high4.5-6.2The [facility] CenterComment on above:Performed By: #### CBC #### [facility] [address] [address] [address] Nilton MccallUS Pelvis limitedon 32-10-2874UWEGAXBZQC: No inguinal or femoral hernia identified. Confidential Investigator: ROBER Transcribe Date/Time: Aug 19 2021 1:20P Dictated by : LUANNE BRYANT MD This examination was interpreted and the report reviewed and electronically signed by: LUANNE BRYANT MD on Aug 19 2021 2:51PM EST ZZZ_DO_NOT_USE_DIVISION OF RADIOLOGY* * *Final Report* * * DATE OF EXAM: Aug 19 2021 1:14PM [facility] [employer] / PROCEDURE REASON: multiple diagnoses [...] valsalva maneuver. INGUINAL LIGAMENT: Normal in appearance. ZZZ_DO_NOT_USE_DIVISION OF RADIOLOGYProvider, [facility] - 08/19/2021 * * *Final Report* * * DATE OF EXAM: Aug 19 2021 1:14PM [facility] [employer] / PROCEDURE REASON: multiple diagnoses [...] IMPRESSION: No inguinal or femoral hernia identified. Confidential Investigator: ROBER Transcribe Date/Time: Aug 19 2021 1:20P Dictated by : LUANNE BRYANT MD This examination was interpreted and the report reviewed and electronically signed by: LUANNE BRYANT MD on Aug 19 2021 2:51PM EST [facility] HospitalRadiology Study observation (narrative)[facility] Pelvis limitedOrdered By: [facility] Provider on 75-44-5329Yblxrltku ClinicECHOon 08-17-2021 EchocardiographyEchocardiography Report: Transthoracic Echo [facility] Date of service: 08/17/2021 2:18:31 PM [...] There is no aortic valve regurgitation. The peakgradient is 9 mmHg (peak velocity = 148.7 [...] * * * Final * * * [employer] : [id number]r [facility], RochesterLVEF ECHOon 19-91-3932EN Ejection Oqlxmjyc30 % [facility] ACOG PANEL 2: 30 to 65on 08-05-2021..NormalThe [facility] CenterComment on above:Result Comment: Performed at: WBPerformed By: #### PT, PTT #### [facility] [address] [place] [address] Dr. Nilton MccallAge Gdln ACOG Qxoacoc20-56PkaqekVboThe Bellevue HospitalComment on above:Performed By: #### PT, PTT #### [facility] [address] [place] [address] Dr. Nilton MccallDIAGNOSIS:CommentNoThe Bellevue HospitalComment on above: Result Comment: NEGATIVE FOR INTRAEPITHELIAL LESION OR MALIGNANCY. Performed at: WBPerformed By: #### PT, PTT #### [facility] [address] [place] [address] Dr. Nilton MccallHPV AptimaNegativeNormalNegativeSelect Medical Specialty Hospital - TrumbullComment on above:Result Comment: This nucleic acid amplification test detects fourteen high-risk HPV types (16,18,31,33,35,39,45,51,52,56,58,59,66,68) without differentiation. Performed at: =GPerformed By: #### PT, PTT #### [facility] [address] [place] [address] Dr. Nilton MccallMethodology:CommentMarietta Osteopathic ClinicComment on above: Result Comment: This liquid based ThinPrep(R) pap test was screened with the use of an image guided system. Performed at: WBPerformed By: #### PT, PTT #### [facility] [address] [place] [address] Dr. Nilton MccallNote:CommentMarietta Osteopathic ClinicComfresenius medical [facility] at [facility] on above:Result Comment: The Pap smear is a screening test designed to aid in the detection of premalignant and malignant conditions of the uterine cervix. It is not a diagnostic procedure and should not be used as the sole means of detecting cervical cancer. Both false-positive and false-negative reports do occur. . Performed at: WBPerformed By: #### PT, PTT #### [facility] [address] [place] [address] Dr. Nilton MccallPerformed by:CommentMarietta Osteopathic ClinicComfresenius medical [facility] on above: Result Comment: Jay Ellison, Light Bulb Replacer (ASCP) Performed at: WBPerformed By: #### PT, PTT #### [facility] [address] [place] [address] Dr. Nilton MccallSpecimen adequacy:CommentMarietta Osteopathic ClinicComfresenius medical [facility] on above:Result Comment: Satisfactory for evaluation. No endocervical component is identified. Performed at: WBPerformed By: #### PT, PTT #### [facility] [address] [place] [address] Dr. Nilton MccallC3 SerPl-mCncon 73-95-7016Pvurxonbpt C3 [Mass/Vol]165 mg/dLNormal 86-166St. Joseph HospitalComment on above:Order Comment: Specimen Type: BLOOD SPECIMEN Ordering Facility: [facility] Address: [address] [place], [place] [address]Performed By: #### 4485-9, 4498-2 #### [facility] CLIA [id number] [address] [place] [address] STATES [place] AMERICAC4 SerPl-mCncon 07-25-2021 Complement C4 [Mass/Vol]32 mg/eUGimqkm69-00NrcamSt. Joseph HospitalComment on above:Order Comment: Specimen Type: BLOOD SPECIMEN Ordering Facility: [facility] Address: [address] [place], [place] [address]Performed By: #### 4485-9, 4498-2 #### [facility] CLIA [id number] [address] [place] [address] [place] OF AMERICATRYPTASE BLOODon 07-25-2021 Tryptase [Mass/Vol]3.4 ug/LNormal<8.4ALallie Kemp Regional Medical CenterComment on above:Order Comment: Specimen Type: BLOOD SPECIMEN Ordering Facility: [facility] Address: [address] [place] [address]Performed By: #### TRYPT #### [facility] CLIA [id number] [address] [place] [address] [place] OF AMERICAACTH [facility] 07-18-2021 Corticotropin (P) [Mass/Vol]15.5 pg/mL7.2 - 63.3 pg/mLCleveland Pipestone County Medical CenterCORTISOL Don 48-09-5408Ijgukodh [Mass/Vol]9.9 ug/dL4.8 - 19.5 ug/dLBrown Memorial Hospital Alpha tocopherol [Mass/Vol]on 49-14-7754Emvs+gamma tocopherol [Mass/Vol]3.0 mg/L 0.3 - 3.2 mg/LCleveland ClinicVITAMIN E/TOCOPHEROLon 14-48-4010Mymkt tocopherol [Mass/Vol]13.1 mg/L6.0 - 23.0 mg/LCleveland ClinicACTH Don 07-02-2021 Corticotropin (P) [Mass/Vol]15.1 pg/mL7.2 - 63.3 pg/mLCleveland [facility] CERULOPLASMIN Don 91-41-6184Yjielshspitlc [Mass/Vol]23 mg/dL16 - 45 mg/dL [facility] CREATINE KINASEon 05-97-8686SN [Catalytic activity/Vol]51 U/L 42 - 196 U/LCleveland Pipestone County Medical CenterCORTISOL Don 66-17-9753Ddlqpnso [Mass/Vol]7.4 ug/dL4.8 - 19.5 ug/dLBrown Memorial HospitalDHEA-S Don 42-58-4402EVDT-S [Mass/Vol] 35.9 ug/dLLow60.9 - 337.0 ug/dLBrown Memorial HospitalFERRITIN [facility] 63-61-9387Wrxdtrnn [Mass/Vol]98.2 ng/mL14.7 - 205.1 ng/mLCleveland ClinicHoly Cross Hospital 06-24-2021 Natriuretic peptide B (Bld) [Mass/Vol]15.0 pg/mLNormal<=450.0[facility] - TrumbullComment on above:Performed By: #### CBC #### [facility] [address] [place] [address] Dr. Nilton DOMINGO 3-6on 04-42-1714LC [Catalytic activity/Vol]60 U/L Btndia04-070Nrt [facility] CenterComment on above:Performed By: #### CMREP #### [facility] [address] [place] [address] Dr. Nilton Mendoza.MB [Mass/Vol]0.33 ng/mLNormal<=3.60[facility] Comment on above:Performed By: #### CMREP #### [facility] [address] [place] [address] Dr. Nilton Flower4.7 pg/mLNormal4.0-51.3The [facility] CenterComment on above:Result Comment: CUT-OFF POINTS HAVE BEEN ESTABLISHED BASED ON THE FOURTH UNIVERSAL DEFINITIONS OF MYOCARDIAL INFARCTION. THE UPPER REFERENCE LIMIT (URL) OF TROPONIN, DEFINED THE 99TH PERCENTILE OF cTnI DISTRIBUTION IN A REFERENCE POPULATION, HAS BEEN CONFIRMED THE DECISION THRESHOLD FOR [place] DIAGNOSIS.Performed By: #### CMREP #### [facility] [address] [place] [address] Dr. Nilton DOMINGO ADMITon 03-85-2662IK [Catalytic activity/Vol]71 U/L Huahei21-334Xnv [facility] CenterComment on above:Performed By: #### CBC #### [facility] [address] [place] [address] Dr. Nilton ChapmanMB [Mass/Vol]0.50 ng/mLNormal<=3.60[facility] Comment on above:Performed By: #### CBC #### [facility] [address] [place] [address] Dr. Yilan ChangHSTROP3.8 pg/mLCritically low4.0-51.3The [facility] CenterComment on above:Result Comment: CUT-OFF POINTS HAVE BEEN ESTABLISHED BASED ON THE FOURTH UNIVERSAL DEFINITIONS OF MYOCARDIAL INFARCTION. THE UPPER REFERENCE LIMIT (URL) OF TROPONIN, DEFINED THE 99TH PERCENTILE OF cTnI DISTRIBUTION IN A REFERENCE POPULATION, HAS BEEN CONFIRMED THE DECISION THRESHOLD FOR TN DIAGNOSIS.Performed By: #### CBC #### [facility] [address] [place] [address] Dr. Nilton WheatleyO25 ng/mLNormal9-82The [facility] CenterComment on above: Performed By: #### CBC #### [facility] [address] [place] [address] Dr. Nilton Carter AUTO DIFFon 98-25-2484TANX #0.1 103/ulNormal0.0-0.1The [facility] CenterComment on above:Performed By: #### CMP #### [facility] [address] [place] [address] Dr. Nilton MccallBasophils/100 WBC (Bld)0.6 %Normal0.2-2.0[facility] Comment on above:Performed By: #### CMP #### [facility] [address] [place] [address] Dr. Nilton Whitley #0.2 103/ulNormal0.0-0.7The [facility] CenterComment on above: Performed By: #### CMP #### [facility] [address] [place] [address] Dr. Nilton Delvalleosinophils/100 WBC (Bld)2.2 %Normal0.9-7.0[facility] Comment on above:Performed By: #### CMP #### [facility] [address] [place] [address] Dr. Nilton Delvallerythrocyte distribution width (RBC) [Ratio]11.8 %Uysshb86.0-15.0 The [facility] CenterComment on above:Performed By: #### CMP #### [facility] [address] [place] [address] Dr. Nilton MccallHematocrit (Bld) [Volume fraction]43.4 %Cnvdya89.0-48.0The [facility] CenterComment on above:Performed By: #### CMP #### [facility] [address] [place] [address] Dr. Nilton MccallHemoglobin (Bld) [Mass/Vol]14.8 g/lAAjdhtj86.0-16.0The [facility] CenterComment on above:Performed By: #### CMP #### [facility] [address] [place] [address] Dr. Nilton Deleon #0.04 10e3/ulCritically high0.00-0.03The [facility] Comment on above:Performed By: #### CMP #### [facility] [address] [place] [address] Dr. Nilton Deleon %0.4 %Normal0.0-0.5The [facility] CenterComment on above: Performed By: #### CMP #### [facility] [address] [place] [address] Dr. Nilton Oneil #2.0 103/ulNormal1.2-3.8The [facility] CenterComment on above:Performed By: #### CMP #### [facility] [address] [place] [address] Dr. Nilton Jameshocytes/100 WBC (Bld)21.5 %Iaqemc23.5-60.0The [facility] CenterComment on above:Performed By: #### CMP #### [facility] [address] [place] [address] Dr. Nilton NessUAL DIFF REQNONormalThe [facility] CenterComment on above: Performed By: #### CMP #### [facility] [address] [place] [address] Dr. Nilton Alexander (RBC) [Entitic mass]29.4 fmIzwgdr99.7-34.0The [facility] CenterComment on above:Performed By: #### CMP #### [facility] [address] [place] [address] Dr. Nilton YoungHC (RBC) [Mass/Vol]34.1 g/bZYokawg42.9-35.2The [facility] CenterComment on above:Performed By: #### CMP #### [facility] [address] [place] [address] Dr. Nilton YoungV (RBC) [Entitic vol]86.1 tJDwksko48.0-99.0The [facility] CenterComment on above:Performed By: #### CMP #### [facility] [address] [place] [address] Dr. Nilton Rodgers #0.5 103/ulNormal0.3-0.8The [facility] CenterComment on above:Performed By: #### CMP #### [facility] [address] [place] [address] Dr. Nilton Fuentesocytes/100 WBC (Bld)5.4 %Normal1.7-12.0The [facility] Comment on above:Performed By: #### CMP #### [facility] [address] [place] [address] Dr. Nilton Valente #6.3 103/ulNormal1.4-6.5The [facility] CenterComment on above:Performed By: #### CMP #### [facility] [address] [place] [address] Dr. Nilton Dunnutrophils/100 WBC (Bld)69.9 %Uqetlx08.0-75.0The [facility] CenterComment on above:Performed By: #### CMP #### [facility] [address] [place] [address] Dr. Nilton Monahan mean volume (Bld) [Entitic vol]9.6 fLNormal9.5-13.5The [facility] CenterComment on above:Performed By: #### CMP #### [facility] [address] [place] [address] Dr. Nilton EvansT290 103/jvCzwryx856-667Kdq [facility] CenterComment on above: Performed By: #### CMP #### [facility] [address] [place] [address] Dr. Nilton MccallRBC5.04 106/ulNormal4.20-5.40The [facility] CenterComment on above:Performed By: #### CMP #### [facility] [address] [address] [address] Nilton MccallWBC9.1 103/ulNormal4.0-11.0The [facility] CenterComment on above: Performed By: #### CMP #### [facility] [address] [address] [address] Nilton MccallCT STROKE HEAD WOon 91-04-2382HB STROKE HEAD WONONCONTRAST CT SCAN OF THE HEAD CT STROKE [...] Electronically authenticated by: MAREK EPSTEIN Date: 2021-06-24 20:56[facility] ClinicCT STR[facility]KE HEAD WONONCONTRAST CT SCAN OF THE HEAD CT STROKE [...] Electronically authenticated by: MAREK EPSTEIN Date: 2021-06-24 19:15NormalSelect Medical Specialty Hospital - TrumbullCovid-19 PCR (CVDTBH)on 99-68-9224ZZVS-CoV-2 (COVID-19) RNA CHRISTI+probe Ql (Unsp spec)Not detectedNormalNOT DETECTEDSelect Medical Specialty Hospital - Trumbull Comment on above:Result Comment: When diagnostic testing is negative, the [...] for this test is supported by the [place] of Health and Human Service's declaration that circumstances exist to justify the emergency use of in vitro diagnostics for the detection and/or diagnosis of the virus that causes COVID-19. This EUA will remain in effect for the duration of the COVID-19 declaration justifying emergency of IVDs, unless it is terminated or revoked by the FDA (after which the test may no longer be used).Performed By: #### PT, PTT #### [facility] [address] [place] [address] Dr. Nilton Lara URINE PROFILEon 12-59-7906Itlacxhqm Ql (U)NegativeNormal NEGATIVESelect Medical Specialty Hospital - TrumbullComment on above:Performed By: #### ERUR, PREGU #### [facility] [address] [place] [address] Dr. Nilton Duncan (U)CLEARNormalCLEARSelect Medical Specialty Hospital - TrumbullComment on above: Performed By: #### ERUR, PREGU #### [facility] [address] [place] [address] Dr. Nilton Jacobson (U)YELLOWNormalYELLOWSelect Medical Specialty Hospital - TrumbullComment on above: Performed By: #### ERUR, PREGU #### [facility] [address] [place] [address] Dr. Nilton Sotelo micrscopic examination will be performed if indicated. NormalSelect Medical Specialty Hospital - TrumbullComment on above:Performed By: #### ERUR, PREGU #### [facility] [address] [place] [address] Dr. Nilton MccallGlucose Ql (U)NegativeNormalNEGATIVESelect Medical Specialty Hospital - TrumbullComment on above:Performed By: #### ERUR, PREGU #### [facility] [address] [place] [address] Dr. Nilton MccallHemoglobin Ql (U)NegativeNormalNEGATIVESelect Medical Specialty Hospital [facility] Comment on above:Performed By: #### ERUR, PREGU #### [facility] [address] [place] [address] Dr. Nilton MccallKetones Ql (U)NegativeNormalNEGATIVESelect Medical Specialty Hospital - TrumbullComment on above:Performed By: #### ERUR, PREGU #### [facility] [address] [place] [address] Dr. Nilton MccallLEUKOCYTESNegativeNormalNEGATIVESelect Medical Specialty Hospital - TrumbullComment on above:Performed By: #### ERUR, PREGU #### [facility] [address] [place] [address] Dr. Nilton MccallNitrite Ql (U)NegativeNormalNEGATIVESelect Medical Specialty Hospital - TrumbullComment on above:Performed By: #### ERUR, PREGU #### [facility] [address] [place] [address] Dr. Nilton MccallpH (U)6.0 [pH]Normal5-9[facility] - TrumbullComment on above: Performed By: #### ERUR, PREGU #### [facility] [address] [place] [address] Dr. Nilton MccallSPEC GRAVITY1.146Okrrbb8.005-<=1.025The [facility] CenterComment on above:Performed By: #### ERUR, PREGU #### [facility] [address] [place] [address] Dr. Nilton Garcia PROTEINNegativeNormalNEGATIVE/ TRACESelect Medical Specialty Hospital - Trumbull Comment on above:Performed By: #### ERUR, PREGU #### [facility] [address] [place] [address] Dr. Nilton Moore MICRO INDNOT INDICATEDNoalThSelect Medical Specialty Hospital - Columbus SouthComment on above:Performed By: #### ERUR, PREGU #### [facility] [address] [place] [address] Dr. Nilton Durhambilinogen Qn (U)0.2 {Zarina'U}/dLNormal0.2 - 1.0The [facility] CenterComment on above:Performed By: #### ERUR, PREGU #### [facility] [address] [place] [address] Dr. Nilton MccallLACTATE/LACTIC ACIDon 19-12-5853Wssqzrd [Moles/Vol]1.0 mmol/L Normal0.4-1.9The [facility] CenterComment on above:Performed By: #### PT, PTT #### [facility] [address] [place] [address] Dr. Nilton MccallLIPASEon 91-81-3595Rfasgx [Catalytic activity/Vol]103.0 U/LNormal 73.0-393.0The [facility] CenterComment on above:Performed By: #### CBC #### [facility] [address] [place] [address] Dr. Nilton Kang VENOUS BLOODon 23-80-8746DOP8 YRHWTG15.4 mmHgCritically low 40.0-52.0The [facility] CenterComment on above:Performed By: #### PT, PTT #### [facility] [address] [place] [address] Dr. Nilton Kang VENOUS7.478Critically high7.330-7.430The [facility] Comment on above:Performed By: #### PT, PTT #### [facility] [address] [place] [address] Dr. Nilton MccallCULLEOKA OF CARE GLUCOSEon 33-26-7149Bhyvnjf [Mass/Vol]107 mg/dL Critically wihk84-643Cor [facility] CenterComment on above:Performed By: #### CMP #### [facility] [address] [place] [address] Dr. Nilton MccallPREGNANCY URon 43-91-8169XZNJMQTCO, QUALNegativeNormalNEGATIVEThe [facility] CenterComment on above:Performed By: #### ERUR, PREGU #### [facility] [address] [place] [address] Dr. Nilton Up 89-84-9972PDC Coag (PPP) [Relative time]0.99 {INR} NormalThe [facility] CenterComment on above:Performed By: #### PT, PTT #### [facility] [address] [place] [address] Dr. Nilton Spring [facility] Hospital - YoungstownComment on above:Result Comment: DESIRED INR: 2.0 - 3.0 CONDITIONS NOT LISTED BELOW 2.5 - 3.5 FOR PROSTHETIC HEART VALVE REPLACEMENT 2.5 - 3.5 RECURRENT THROMBOSIS Performed By: #### PT, PTT #### [facility] [address] [place] [address] Dr. Nilton MccallPT Coag (PPP) [Time]10.7 sNormal9.0-11.6The [facility] Comment on above:Performed By: #### PT, PTT #### [facility] [address] [place] [address] Dr. Nilton Velazquez 10-42-4915lUFH Coag (Bld) [Time]32.5 hPssyrd95.3-36.2[facility] - TrumbullComment on above:Performed By: #### PT, PTT #### [facility] [address] [place] [address] Dr. Nilton Linn 78-52-6160VUE3.655 uIU/mLNormal0.358-3.740The [facility] CenterComfresenius medical care at [facility] on above:Performed By: #### CBC #### [facility] [address] [place] [address] Dr. Nilton Valdes Memorial Health SystemComment on above: Result Comment: <0.34 UIU/ml HYPERTHYROID 0.34-5.60 UIU/ml EUTHYROID >5.60 UIU/ml HYPOTHYROIDPerformed By: #### CBC #### [facility] [facility] [address] [place] [address] Dr. Nilton Akers CHEST 1 Von [id number] CHEST 1 VEXAMINATION: XR CHEST 1 V HISTORY: Twitching COMPARISON: Chest x-ray 11/14/2020. TECHNIQUE: Portable chest FINDINGS: The lung parenchyma is free of consolidation or infiltrate. No pneumothorax or pleural effusion. The cardiac, mediastinal and hilar contours are normal. The visualized osseous structures exhibit no gross abnormality. IMPRESSION: Normal chest x-ray Electronically authenticated by: BELÉN DC Date: 2021-06-24 19:14[facility] Metabolic Panelon [id number] gap [Moles/Vol]11 mmol/L9 - 17 mmol/LMercy HealthCalcium [Mass/Vol]9.3 mg/dL8.6 - 10.4 mg/dLMer HealthChloride [Moles/Vol]102 mmol/L98 - 107 mmol/LMercy HealthCO2 [Moles/Vol]23 mmol/L20 - 31 mmol/LMercy HealthCreatinine [Mass/Vol]0.78 mg/dL0.50 - 0.90 mg/dLBellevue Hospital HealthGFR >60>60 mL/minMercy HealthGFR Non->60>60 mL/minMer HealthGlucose [Mass/Vol]160 mg/nANdbq49 - 99 mg/dL [facility] InstituteInterpretation and review of laboratory resultsAbnormalRiverview Health Institute Potassium [Moles/Vol]3.7 mmol/L3.7 - 5.3 mmol/LMercy HealthSodium [Moles/Vol]136 mmol/L135 - 144 mmol/LMercy HealthUrea nitrogen (BldV) [Mass/Vol]12 mg/dL6 - 20 mg/dLRiverview Health InstituteUrea nitrogen/Creatinine (Bld) [Mass ratio]15[facility] HospitalCB with Auto Differentialon 67-06-6851Ckenjfjy Eos #0.21[facility] Absolute Immature Granulocyte0.03MerOverlake Hospital Medical CenterAbsolute Lymph #2.43[facility] Absolute Bland #0.43Mercy HealthBasophils (Bld) [#/Vol]0.05 10*3/uLMercy Health Basophils/100 WBC (Bld)1 %0 - 2 %Mercy HealthEosinophils/100 WBC (Bld)3 %1 - 4 % Mercy HealthHematocrit (Bld) [Volume fraction]41.8 %36.3 - 47.1 %[facility] Hemoglobin.gastrointestinal spec 1 Ql (Stl)14.0 g/dL11.9 - 15.1 g/dLRiverview Health Institute Immature granulocytes/100 WBC (Bld)0 %0R[facility] InstituteInterpretation and review of laboratory resultsAbnormalRiverview Health InstituteLymphocytes/100 WBC (Bld)29 %24 - 43 % [facility] HospitalH (RBC) [Entitic mass]29.2 pg25.2 - 33.5 pgGreene Memorial HospitalHC (RBC) [Mass/Vol]33.5 g/dL28.4 - 34.8 g/dLGreene Memorial HospitalV (RBC) [Entitic vol]87.1 fL 82.6 - 102.9 fLRiverview Health InstituteMonocytes/100 WBC (Bld)5 %3 - 12 %[facility] InstituteNRBC Automated0.00.0 per 100 WBCRiverview Health InstitutePlatelet distribution width (Bld) [Ratio] 11.5 %Low11.8 - 14.4 %[facility] InstitutePlatelet mean volume (Bld) [Entitic vol]9.6 fL 8.1 - 13.5 fLRiverview Health InstitutePlatelets (Bld) [#/Vol]264 10*3/uLRiverview Health InstituteRBC (Bld) [#/Vol]4.80 10*6/uL3.95 - 5.11 m/[facility] HospitalSegmented neutrophils/100 WBC (Bld)62 %36 - 65 %[facility] InstituteSegs Absolute5.12R[facility] Health InstituteWBC (Bld) [#/Vol]8.3 10*3/uLFroedtert West Bend HospitalLaboratory - Chemistry and Chemistry - challenge on 82-13-6808YSP/1.73 sq M.predicted MDRD (S/P/Bld) [Vol rate/Area][facility] Comment on above:Average GFR for 30-39 years old: 107 mL/min/1.73sq m Chronic Kidney Disease: <60 mL/min/1.73sq m Kidney failure: <15 mL/min/1.73sq m eGFR calculated using average adult body mass. Additional eGFR calculator available at: http://www.[employer]/multiple_crcl_2011.htm Stage 1: Some kidney damage normal GFR Stage 2: Mild kidney damage GFR 60-89 Stage 3: Moderate kidney damage GFR 30-59 Stage 4: Severe kidney damage GFR 15-29 Stage 5: Severe kidney damage GFR <15 ESRD - chronic treatment by dialysis or transplant Magnesiumon 51-09-2617Usmejkexw [Mass/Vol]1.8 mg/dL1.6 - 2.6 mg/dLThedacare Medical Center - Wild RoseTSHon 62-86-7669VEV Qn1.33 m[IU]/LMercy [facility] South CampusTroponinon 53-81-4328Pkbuwnau, High Sensitivity<60 - 14 ng/LMercy HealthComment on above: High Sensitivity Troponin values cannot be compared with other Troponin methodologies. Patients with high levels of Biotin oral intake (i.e >5mg/day) may have falsely decreased Troponin levels. Samples collected within 8 hours of biotin intake may require additional information for diagnosis. AdzCentralXR CHEST PORTABLEon [id number] acute cardiopulmonary disease. [facility] FARIDEH CONSOLIDATEDEXAMINATION: ONE XRAY VIEW OF THE CHEST 06/21/2021 12:52 am COMPARISON: 05/20/2021 HISTORY: ORDERING SYSTEM PROVIDED HISTORY: chest pain TECHNOLOGIST PROVIDED HISTORY: chest pain FINDINGS: Heart size and configuration are normal. Hilar and mediastinal structures are unremarkable. The lungs are clear. No pneumothorax or pleural fluid. No acute bone finding. [facility] Armando Glover MD - 06/21/2021 EXAMINATION: ONE XRAY VIEW OF THE CHEST 06/21/2021 12:52 am COMPARISON: 05/20/2021 HISTORY: ORDERING SYSTEM PROVIDED HISTORY: chest pain TECHNOLOGIST PROVIDED HISTORY: chest pain FINDINGS: Heart size and configuration are normal. Hilar and mediastinal structures are unremarkable. The lungs are clear. No pneumothorax or pleural fluid. No acute bone finding. IMPRESSION: No acute cardiopulmonary disease. [employer] Phone: radiology Study observation (narrative)[employer] Phone: XR CHEST PORTABLEOrdered By: Armando Stern on 06-21-2021 [employer] Phone: ALLIED [facility] [phone] HEALTHHNO ID: [id number] Author: RT Geovanna(R) Service: ? Author Type: [...] Tran DATE: June 16, 2021 TIME: 11:05 [facility] HospitalMRI BRAIN WO/W IVCONon [id number] BRAIN WO/W IVCON* * *Final Report* * * DATE OF [...] of the brain with and without contrast. Confidential Investigator: ROBER Transcribe Date/Time: Jun 16 2021 11:31A Dictated by : ANNA BOLAND MD This examination was interpreted and the report reviewed and electronically signed by: ANNA BOLAND MD on Jun 16 2021 11:53AM EST [id number] City Hospital [id number] (P) [Mass/Vol]11.6 pg/mL7.2 - 63.3 pg/mLCleveland ClinicBasic Metabolic Panel w/ Reflex to MGon 36-88-9275Xxlgf gap [Moles/Vol]11 mmol/L9 - 17 mmol/LMercy Health Calcium [Mass/Vol]9.1 mg/dL8.6 - 10.4 mg/dLMercy HealthChloride [Moles/Vol]103 mmol/L98 - 107 mmol/LMercy HealthCO2 [Moles/Vol]23 mmol/L20 - 31 mmol/LMercy HealthCreatinine [Mass/Vol]0.74 mg/dL0.50 - 0.90 mg/dLMercy HealthGFR >60>60 mL/minMercy HealthGFR Non->60>60 mL/minMercy HealthGlucose [Mass/Vol]101 mg/sVAgft56 - 99 mg/dLMercy HealthInterpretation and review of laboratory resultsAbnormalMercy HealthPotassium [Moles/Vol]3.7 mmol/L 3.7 - 5.3 mmol/LMerc HealthSodium [Moles/Vol]137 mmol/L135 - 144 mmol/LMercy HealthUrea nitrogen (BldV) [Mass/Vol]9 mg/dL6 - 20 mg/dLRiverview Health InstituteUrea nitrogen/Creatinine (Bld) [Mass ratio]12[facility] InstituteBrain Natriuretic Peptideon 06-78-1019Eytonfracul peptide B (Bld) [Mass/Vol]173 pg/mL<300Riverview Health InstituteComment on above: An age-independent cutoff point of 300 pg/ml has a 98% negative predictive value excluding acute heart failure. C-Reactive Proteinon 49-55-5129WSE [Mass/Vol]mg/L0.0 - 5.0 mg/LMercy [facility] South CampusCBC with Auto Differentialon 65-81-8345Hxrsirfj Eos #0.18[facility] Absolute Immature Granulocyte0.03[facility] InstituteAbsolute Lymph #1.75[facility] Absolute Bland #0.29[facility] InstituteBasophils (Bld) [#/Vol]0.03 10*3/uLRiverview Health Institute Basophils/100 WBC (Bld)0 %0 - 2 %[facility] InstituteEosinophils/100 WBC (Bld)3 %1 - 4 % [facility] InstituteHematocrit (Bld) [Volume fraction]43.8 %36.3 - 47.1 %[facility] Hemoglobin.gastrointestinal spec 1 Ql (Stl)14.6 g/dL11.9 - 15.1 g/dLRiverview Health Institute Immature granulocytes/100 WBC (Bld)0 %0R[facility] InstituteInterpretation and review of laboratory resultsAbnormMercy Health St. Joseph Warren HospitalLymphocytes/100 WBC (Bld)25 %24 - 43 % [facility] HospitalH (RBC) [Entitic mass]29.0 pg25.2 - 33.5 pgGreene Memorial HospitalHC (RBC) [Mass/Vol]33.3 g/dL28.4 - 34.8 g/dLGreene Memorial HospitalV (RBC) [Entitic vol]86.9 fL 82.6 - 102.9 fLRiverview Health InstituteMonocytes/100 WBC (Bld)4 %3 - 12 %[facility] InstituteNRBC Automated0.00.0 per 100 WBCBellevue Hospital HealthPlatelet distribution width (Bld) [Ratio] 11.5 %Low11.8 - 14.4 %[facility] HealthPlatelet mean volume (Bld) [Entitic vol]9.5 fL 8.1 - 13.5 fLBellevue Hospital HealthPlatelets (Bld) [#/Vol]242 10*3/uLBellevue Hospital HealthRBC (Bld) [#/Vol]5.04 10*6/uL3.95 - 5.11 m/uLRiverview Health InstituteSegmented neutrophils/100 WBC (Bld)68 %High36 - 65 %[facility] HealthSegs Absolute4.67[facility] HealthWBC (Bld) [#/Vol] 7.0 10*3/uLTuscarawas Hospital HealthCT ABDOMEN PELVIS WO CONTRAST Additional Contrast? Noneon . No acute abdominal or pelvic findings. 2. There is diastasis of the rectus abdominus fascia in the midline lower abdomen measuring up to 3 cm. A loop of colon is seen to protrude into the small defect without evidence of incarceration. 3. Hepatic steatosis [facility] RIS CONSOLIDATEDEXAMINATION: CT OF THE ABDOMEN AND PELVIS WITHOUT [...] obstruction. No suspicious osseous lesions. [facility] RIS Jesus Leal P - 05/20/2021 EXAMINATION: CT OF THE [...] without evidence of incarceration. 3. Hepatic steatosis [employer] Phone: radiology Study observation (narrative)[employer] Phone: cT ABDOMEN PELVIS WO CONTRAST Additional Contrast? NoneOrdered By: Jesus Unger on 19-21-7480[facility] Work Phone: [phone]-Ojckq, Quantitativeon 19-82-0238S-Dimer, Quant0.34 AdzCentralComment on above: When combined with a low [...] more prevalent in patients with distal DVT. AdzCentralDrug screen multi urineon 41-56-8791Lzrtbjhdyhp Screen, UrNegative NEGATIVEMercy HealthBarbiturate Screen, UrNegativeNEGATIVEMercy Health Benzodiazepine Screen, UrineNegativeNEGATIVEMercy HealthBuprenorphine Urine NegativeNEGATIVEMercy HealthCannabinoid Scrn, UrNegativeNEGATIVEMercy Health Cocaine Metabolite, UrineNegativeNEGATIVEMercy HealthMethadone Screen, Urine NegativeNEGATIVEMercy HealthMethamphetamine, UrineNegativeNEGATIVEMercy Health Opiates, UrineNegativeNEGATIVEMercy HealthOxycodone Screen, UrNegativeNEGATIVE Mer[facility] HealthPhencyclidine, UrineNegativeNEGATIVEMercy HealthPropoxyphene, Urine NegativeNEGATIVEMercy HealthTricyclic Antidepressants, UrineNegativeNEGATIVE Mercy HealthComment on above:Drug screen results are to be used for medical purposes only. All positive results are unconfirmed. Testing for employment or legal uses should be sent to a reference laboratory for confirmation. AdzCentralEKG 12 LeadOrdered By: Gosia Rangel on 30-16-4909Ndgkce Zhzo12VEBBuqmz Health Work Phone: P Kviw01qibecjvSyxry Health Work Phone: P-R [id number] [employer] Work Phone: Q-T Vsxinwch221 [employer] Work Phone: QRS Uogvpoeq79 [employer] Work Phone: QTc Calculation (Bazett)412 [employer] Work Phone: R Zeqc43zbsdvldQhzya Health Work Phone: T Pnrb99czxzswtOevuk Health Work Phone: Ventricular Jwno76IOIHrloo Health Work Phone: [place] Work Phone: [phone] 12 Leadon 72-79-3807Hoscx bradycardia with sinus arrhythmia T wave abnormality, consider anterior ischemia Abnormal ECG When compared with ECG of 16-APR-2021 20:11, No significant change was found Confirmed by Gosia Rangel MD ([id number]) on 05/20/2021 6:51:52 [facility] Gosia Rangel MD - 05/20/2021 Sinus bradycardia with sinus arrhythmia T wave abnormality, consider anterior ischemia Abnormal ECG When compared with ECG of 16-APR-2021 20:11, No significant change was found Confirmed by Gosia Rangel MD ([id number]) on 05/20/2021 6:51:52 PMChtiogen Phone: laboratory - Chemistry and Chemistry - challengeon 00-92-9716VUP/1.73 sq M.predicted MDRD (S/P/Bld) [Vol rate/Area]AdzCentral Comment on above:Average GFR for 30-39 years old: 107 mL/min/1.73sq m Chronic Kidney Disease: <60 mL/min/1.73sq m Kidney failure: <15 mL/min/1.73sq m eGFR calculated using average adult body mass. Additional eGFR calculator available at: http://www.[employer]/multiple_crcl_2012.htm Stage 1: Some kidney damage normal GFR Stage 2: Mild kidney damage GFR 60-89 Stage 3: Moderate kidney damage GFR 30-59 Stage 4: Severe kidney damage GFR 15-29 Stage 5: Severe kidney damage GFR <15 ESRD - chronic treatment by dialysis or transplant Lactic Acidon 11-84-1657Zxqeofs [Moles/Vol]0.9 mmol/L0.5 - 2.2 mmol/[facility] HealthLipaseon 24-93-8824Tknqxf [Catalytic activity/Vol]46 U/L13 - 60 U/[facility] Hospital OconomowocMicroscopic Urinalysison 05-20-2021-[facility] Bacteria, UATRACEAbnormSCCI Hospital LimaEpithelial Cells UA0 TO 2MRegency Hospital Toledo Interpretation and review of laboratory resultsAbnoPremier Health Miami Valley Hospital NorthRBC, UANone [facility] InstituteWBC, UANonGreen Cross Hospital HealthNo Panel Informationon 05-20-2021 [facility] InstituteSedimentation Rateon 26-25-9205Kwg Axyw1QgkhsFroedtert West Bend HospitalTSH with Reflexon 49-00-6971KIB Qn1.20 m[IU]/[facility] HealthTroponinon 86-32-3539Wykhijhu, High Sensitivity<60 - 14 ng/LMwhite hospitaly [facility]hes[facility] North HospitalComment on above: High Sensitivity Troponin values cannot be compared with other Troponin methodologies. Patients with high levels of Biotin oral intake (i.e >5mg/day) may have falsely decreased Troponin levels. Samples collected within 8 hours of biotin intake may require additional information for diagnosis. [facility] InstituteTroponin, High Sensitivity<60 - 14 ng/LMwhite hospitaly HealthComment on above: High Sensitivity Troponin values cannot be compared with other Troponin methodologies. Patients with high levels of Biotin oral intake (i.e >5mg/day) may have falsely decreased Troponin levels. Samples collected within 8 hours of biotin intake may require additional information for diagnosis. Urinalysis with Reflex to Cultureon 52-84-1565Mtfdejryu UrineNegativeNEGATIVE [facility] HealthColor, UAYellowYellowMercy HealthGlucose, UrNegativeNEGATIVEMercy HealthInterpretation and review of laboratory resultsAbnormalMercy HealthKetones Ql (U)NegativeNEGATIVEMercy HealthLeukocyte esterase Test strip Ql (U)Negative NEGATIVEMercy HealthNitrite, UrineNegativeNEGATIVEMercy HealthpH, UA6.0Mercy HealthProtein, UANegativeNEGATIVEMercy HealthSpecific Vass, UA<1.005LowMercy HealthTurbidity UAClearClearMercy HealthUrine HgbNegativeNEGATIVEMer Health Urobilinogen, UrineNormalNormalMercy HealthMercy HealthXR CHEST PORTABLEon 67-97-6697Wj abnormalities noted. [facility] CONSOLIDATEDEXAMINATION: ONE XRAY VIEW OF THE CHEST 05/20/2021 1:33 pm COMPARISON: 04/16/2021 HISTORY: ORDERING SYSTEM PROVIDED HISTORY: chest pain TECHNOLOGIST PROVIDED HISTORY: chest pain FINDINGS: The lungs appear clear. The heart and mediastinal structures are unremarkable. Bony thorax appears normal. Visualized upper abdomen is unremarkable. [facility] Yoel Walker MD - 05/20/2021 EXAMINATION: ONE XRAY VIEW OF THE CHEST 05/20/2021 1:33 pm COMPARISON: 04/16/2021 HISTORY: ORDERING SYSTEM PROVIDED HISTORY: chest pain TECHNOLOGIST PROVIDED HISTORY: chest pain FINDINGS: The lungs appear clear. The heart and mediastinal structures are unremarkable. Bony thorax appears normal. Visualized upper abdomen is unremarkable. IMPRESSION: No abnormalities noted. [employer] Work Phone: radiology Study observation (narrative)[facility] Work Phone: XR CHEST PORTABLEOrdered By: Yoel Shabazz on 93-49-9785RdhhtChtiogen Phone: Basic Metabolic Panel w/ Reflex to MGon 04-16-2021 Anion gap [Moles/Vol]11 mmol/L9 - 17 mmol/LMercy HealthCalcium [Mass/Vol]9.8 mg/dL8.6 - 10.4 mg/dLMercy HealthChloride [Moles/Vol]99 mmol/L98 - 107 mmol/L [facility] HealthCO2 [Moles/Vol]24 mmol/L20 - 31 mmol/LMlakehealth tripoint medical center HealthCreatinine [Mass/Vol]0.85 mg/dL0.50 - 0.90 mg/dLRiverview Health InstituteGFR >60>60 mL/minBellevue Hospital HealthGFR Non->60>60 mL/minRiverview Health InstituteGlucose [Mass/Vol]97 mg/dL70 - 99 mg/dLRiverview Health InstituteInterpretation and review of laboratory resultsAbnormalRiverview Health InstitutePotassium [Moles/Vol]3.8 mmol/L3.7 - 5.3 mmol/LMlakehealth tripoint medical center HealthSodium [Moles/Vol]134 mmol/ELdd992 - 144 mmol/LMRegency Hospital Toledo Urea nitrogen (BldV) [Mass/Vol]9 mg/dL6 - 20 mg/dLRiverview Health InstituteUrea nitrogen/Creatinine (Bld) [Mass ratio]11R[facility] Health InstituteC-Reactive Proteinon 80-17-8790JWL [Mass/Vol]mg/L0.0 - 5.0 mg/LMercy [facility] South CampusCBC with Auto Differentialon 84-80-8391Kkmfkonf Eos #0.19[facility] InstituteAbsolute Immature Granulocyte0.03[facility] InstituteAbsolute Lymph #2.01[facility] InstituteAbsolute Bland #0.47 [facility] InstituteBasophils (Bld) [#/Vol]0.05 10*3/uLRiverview Health InstituteBasophils/100 WBC (Bld)1 %0 - 2 %[facility] InstituteEosinophils/100 WBC (Bld)2 %1 - 4 %[facility] Hematocrit (Bld) [Volume fraction]44.1 %36.3 - 47.1 %[facility] Hemoglobin.gastrointestinal spec 1 Ql (Stl)14.9 g/dL11.9 - 15.1 g/dLRiverview Health Institute Immature granulocytes/100 WBC (Bld)0 %0R[facility] InstituteInterpretation and review of laboratory resultsAbnormMercy Health St. Joseph Warren HospitalLymphocytes/100 WBC (Bld)22 %Low24 - 43 % [facility] HospitalH (RBC) [Entitic mass]29.2 pg25.2 - 33.5 pgGreene Memorial HospitalHC (RBC) [Mass/Vol]33.8 g/dL28.4 - 34.8 g/dLRiverview Health InstituteMCV (RBC) [Entitic vol]86.5 fL 82.6 - 102.9 fLRiverview Health InstituteMonocytes/100 WBC (Bld)5 %3 - 12 %[facility] InstituteNRBC Automated0.00.0 per 100 WBCRiverview Health InstitutePlatelet distribution width (Bld) [Ratio] 11.4 %Low11.8 - 14.4 %[facility] InstitutePlatelet mean volume (Bld) [Entitic vol]9.5 fL 8.1 - 13.5 fLBellevue Hospital HealthPlatelets (Bld) [#/Vol]265 10*3/uLBellevue Hospital HealthRBC (Bld) [#/Vol]5.10 10*6/uL3.95 - 5.11 m/uLRiverview Health InstituteSegmented neutrophils/100 WBC (Bld)70 %High36 - 65 %[facility] InstituteSegs Absolute6.34MerOverlake Hospital Medical CenterWBC (Bld) [#/Vol] 9.1 10*3/uLTrihealth Bethesda Butler Hospitalcy [facility]ly [facility] HealthCT ABDOMEN PELVIS WO CONTRAST Additional Contrast? Noneon 31-46-0500Ki renal calculi, hydronephrosis, or hydroureter. Previous appendectomy, no bowel obstruction, and no pneumoperitoneum. There is a 3.6 cm cyst in the left ovary with a simple fluid attenuation. May have a short segment of mild hydrosalpinx on the left side as well. Correlate with physical exam for location of pain. Fatty metamorphosis of the liver. Previous cholecystectomy without biliary dilatation. [facility] RIS CONSOLIDATEDEXAMINATION: CT OF THE ABDOMEN AND PELVIS WITHOUT [...] at the sacroiliac joints. [facility] Michael Cordova - 04/16/2021 EXAMINATION: CT OF THE ABDOMEN [...] the liver. Previous cholecystectomy without biliary dilatation. [employer] Phone: radiology Study observation (narrative)[employer] Phone: cT ABDOMEN PELVIS WO CONTRAST Additional Contrast? NoneOrdered By: Michael Frausto on 80-69-5998DvmwfChtiogen Phone: [phone]-Zymzq, Quantitativeon 35-50-6577C-Dimer, Quant0.37 popchipsfresenius [facility] on above: When combined with a low [...] more prevalent in patients with distal DVT. [facility] InstituteHepatic Function Panelon 48-21-2342Dxuusie [Mass/Vol]4.7 g/dL3.5 - 5.2 g/dLBellevue Hospital HealthAlbumin/Globulin [Mass ratio]1.8 {ratio}[facility] InstituteALP (Bld) [Catalytic activity/Vol]73 U/L35 - 104 U/LMercy HealthALT [Catalytic activity/Vol]24 U/L5 - 33 U/LMercy HealthAST [Catalytic activity/Vol]14 U/L<32 [facility] InstituteBilirubin [Mass/Vol]0.35 mg/dL0.3 - 1.2 mg/dLBellevue Hospital HealthBilirubin, IndirectCan not be calculated0.00 - 1.00 mg/dLBellevue Hospital HealthBilirubin.indirect [Mass/Vol]mg/dL<0.31 mg/dLRiverview Health InstituteFree PSA/Total PSA [Mass fraction]7.3 g/dL 6.4 - 8.3 g/dLRiverview Health InstituteLaboratory - Chemistry and Chemistry - challengeon 84-59-9338AHO/1.73 sq M.predicted MDRD (S/P/Bld) [Vol rate/Area][facility] Comment on above:Average GFR for 30-39 years old: 107 mL/min/1.73sq m Chronic Kidney Disease: <60 mL/min/1.73sq m Kidney failure: <15 mL/min/1.73sq m eGFR calculated using average adult body mass. Additional eGFR calculator available at: http://www.[employer]rph.[employer]/multiple_crcl_2012.htm Stage 1: Some kidney damage normal GFR Stage 2: Mild kidney damage GFR 60-89 Stage 3: Moderate kidney damage GFR 30-59 Stage 4: Severe kidney damage GFR 15-29 Stage 5: Severe kidney damage GFR <15 ESRD - chronic treatment by dialysis or transplant Lipaseon 89-38-6485Ajwgdd [Catalytic activity/Vol]29 U/L13 - 60 U/LMercy Health Microscopic Urinalysison 04-16-2021-[facility] HealthBacteria, UA2+AbnormalNoneMercy HealthEpithelial Cells UA2 TO 5Mercy HealthInterpretation and review of laboratory resultsAbnormalBellevue Hospital HealthRBC, UA0 TO 2Mercy HealthWBC, UA2 TO 5 [facility] InstituteMercy HealthNo Panel Informationon 22-96-9699Fhbbq HealthPregnancy, Urineon 98-45-1546Wwhv HCG ( test) Ql (U)NegativeNEGATIVEMercy Health Comment on above:Specimens with hCG levels near the threshold of the test (25 mIU/mL) may give a negative or indeterminate result. In such cases, another test should be performed with a new specimen in 48-72 hours. If early is suspected clinically in this setting, correlation with quantitative serum b-hCG level is suggested. [facility] has confirmed the use of plasma for this test. This has not been cleared or approved by the U.S. Food and Drug Administration. The FDA has determined that such clearance is not necessary. [facility] North HospitalSedimentation Rateon 91-70-7891Zcs Rate13 mm0 - 20 mmMercy Health [facility] HealthTroponinon 72-82-0586Jqwxbetb, High Sensitivity<60 - 14 ng/LMercy HealthComment on above: High Sensitivity Troponin values cannot be compared with other Troponin methodologies. Patients with high levels of Biotin oral intake (i.e >5mg/day) may have falsely decreased Troponin levels. Samples collected within 8 hours of biotin intake may require additional information for diagnosis. HID [facility] HospitalUrinalysis with Reflex to Cultureon 09-94-9084Fpcofzlsy Urine NegativeNEGATIVEMercy HealthColor, UAYellowYellowMercy HealthGlucose, UrNegative NEGATIVEMercy HealthInterpretation and review of laboratory resultsAbnormalMercy HealthKetones Ql (U)NegativeNEGATIVEMercy HealthLeukocyte esterase Test strip Ql (U)TRACEAbnormalNEGATIVEMercy HealthNitrite, UrineNegativeNEGATIVEMercy Health pH, UA6.0Mercy HealthProtein, UANegativeNEGATIVEMercy HealthSpecific Vass, UA 1.015Mercy HealthTurbidity UAClearClearMercy HealthUrine HgbNegativeNEGATIVE [facility] HealthUrobilinogen, UrineNormalNormalMercy HealthMercy HealthXR CHEST 1 VIEWon 92-02-6510Zszsr lungs. No acute cardiopulmonary abnormality. [facility] CONSOLIDATEDEXAMINATION: ONE XRAY VIEW OF THE CHEST 04/16/2021 [...] normal limits. No significant thoracic osseous abnormality. [facility] Christy Cordova MD - 04/16/2021 EXAMINATION: ONE XRAY VIEW [...] IMPRESSION: Clear lungs. No acute cardiopulmonary abnormality. [employer] Phone: radiology Study observation (narrative)[employer] Phone: xr CHEST 1 VIEWOrdered By: Christy Becerra on 83-81-6134HlszyChtiogen Phone: PULMONARY FUNCTION (450)on 64-99-3555LHQVCOOJH FUNCTION (450)[place] [address] PULMONARY FUNCTION PATIENT NAME: LEANA TRAN : 1985 MED REC NO: [id number] ROOM: ACCOUNT NO: [id number] ADMIT DATE: 03/07/2021 PROVIDER: Moris Alvarado DATE OF PROCEDURE: 03/07/2021 PULMONARY FUNCTION TESTS WITH BRONCHODILATOR AND DLCO ATTENDING PROVIDER: Nabor Yancey CNP PRIMARY CARE PROVIDER: Cas Galicia MD REASON FOR TEST: Moderate asthma. SUMMARY: [...] 79% of predicted. MORIS ERIC [id number] Doc#: [id number] CC:[facility] HospitalARS-CoV-2on 68-20-1826HXKD-CoV-2 (COVID-19) RNA CHRISTI+probe Ql (Unsp spec)Not detectedNormalNOTDETMercCHoNC Pediatric HospitalComment on above:Result Comment: Rapid NAAT: The specimen is NEGATIVE [...] management decisions. Fact sheet for Healthcare Providers: https://www.fda.gov/media/969328/download Fact sheet for Patients: https://www.fda.gov/media/210401/download Methodology: Isothermal Nucleic Acid AmplificationPerformed By: #### COVRB #### [facility] [address] [place] [address] Internet Site Designer: Deja Chanddario Metabolic Panel w/ Reflex to MGOrdered By: Araseli Barrett on 45-07-9989Emklu gap [Moles/Vol]19 mmol/LHigh9 - 17 mmol/LMNinePoint Medicaly [employer] Work Phone: calcium [Mass/Vol]9.4 mg/dL8.6 - 10.4 mg/dLTrihealth Bethesda Butler Hospitalshopp Work Phone: Ahloride [Moles/Vol]94 mmol/LLow98 - 107 mmol/LMercy [employer] Work Phone: cO2 [Moles/Vol]20 mmol/L20 - 31 mmol/LMNinePoint Medicaly [employer] Work Phone: creatinine [Mass/Vol]1.2 mg/dLHigh0.50 - 0.90 mg/dL [employer] [facility] Phone: GFR >60>60 mL/minTrihealth Bethesda Butler Hospitalshopp Work Phone: GFR Non- Kqaqixnz20 mL/minLow>60[facility] Work Phone: Glucose [Mass/Vol]217 mg/rCEsyp24 - 99 mg/dLTrihealth Bethesda Butler HospitalRed Advertising Phone: Interpretation and review of laboratory results AbnormalTrihealth Bethesda Butler HospitalRed Advertising Phone: potassium [Moles/Vol]3.5 mmol/LLow3.7 - 5.3 mmol/L [facility] Phone: sodium [Moles/Vol]133 mmol/JMjq190 - 144 mmol/LMlakehealth [facility]point medical [facility] [employer] Phone: Urea nitrogen (BldV) [Mass/Vol]10 mg/dL6 - 20 mg/dL [facility] Phone: Urea nitrogen/Creatinine (Bld) [Mass ratio]8LowTrihealth Bethesda Butler HospitalRed Advertising Phone: [facility] Phone: cBC Auto DifferentialOrdered By: Araseli Barrett on 20-53-0878Mzbxmnze Eos #<0.03[facility] Hospital[facility] Phone: absolute Immature Granulocyte0.33HighTrihealth Bethesda Butler HospitalRed Advertising Phone: absolute Lymph #0.80LowTrihealth Bethesda Butler HospitalRed Advertising Phone: absolute Bland #0.42[facility] Phone: basophils (Bld) [#/Vol]10*3/uLTrihealth Bethesda Butler HospitalRed Advertising Phone: basophils/100 WBC (Bld)0 %0 - 2 %[employer] Phone: differential TypeNOT REPORTEDTrihealth Bethesda Butler HospitalRed [facility]vertising Phone: eosinophils/100 WBC (Bld)0 %Low1 - 4 %[employer] Phone: Hematocrit (Bld) [Volume fraction]42.8 %36.3 - 47.1 % [employer] Phone: Hemoglobin.gastrointestinal spec 1 Ql (Stl)14.7 g/dL 11.9 - 15.1 g/dLTrihealth Bethesda Butler HospitalRed Advertising Phone: Immature granulocytes/100 WBC (Bld)4 %Umos5XdfefRed Advertising Phone: Interpretation and review of laboratory results AbnormalTrihealth Bethesda Butler HospitalRed [facility]vertising Phone: Lymphocytes/100 WBC (Bld)9 %Low24 - 43 %[facility] Phone: MCH (RBC) [Entitic mass]30.1 pg25.2 - 33.5 pgTrihealth Bethesda Butler HospitalRed Advertising Phone: MCHC (RBC) [Mass/Vol]34.3 g/dL28.4 - 34.8 g/dLTrihealth Bethesda Butler HospitalRed Advertising Phone: MCV (RBC) [Entitic vol]87.5 fL82.6 - 102.9 fLTrihealth Bethesda Butler HospitalRed Advertising Phone: Monocytes/100 WBC (Bld)5 %3 - 12 %[facility] Phone: NRBC Automated0.00.0 per 100 WBCTrihealth Bethesda Butler HospitalRed Advertising Phone: platelet distribution width (Bld) [Ratio]11.4 %Low11.8 - 14.4 %[employer] Phone: platelet EstimateNOT REPORTEDTrihealth Bethesda Butler HospitalRed Advertising Phone: Dlatelet mean volume (Bld) [Entitic vol]9.4 fL8.1 - 13.5 fLTrihealth Bethesda Butler HospitalRed Advertising Phone: Platelets (Bld) [#/Vol]207 10*3/uLTrihealth Bethesda Butler HospitalRed Ad[facility] Phone: RBC (Bld) [#/Vol]4.89 10*6/uL3.95 - 5.11 m/[facility]edoRed [facility] Phone: RBC (Bld) [#/Vol]NOT REPORTEDTrihealth Bethes[facility] Butler HospitalRed [facility] Phone: Segmented neutrophils/100 WBC (Bld)82 %High36 - 65 % [employer] Phone: segs Absolute7.82[facility] HospitalRed [facility] Phone: WBC (Bld) [#/Vol]9.4 10*3/uLTrihealth Bethesda Butler HospitalRed Advertising Phone: WBC (Bld) [#/Vol]NOT REPORTEDTrihealth Bethesda Butler HospitalRed Advertising Phone: [facility] Phone: [phone]-Yxaau, QuantitativeOrdered By: Araseli Barrett on [phone]-Dimer, Quant<0.27[employer] Phone: comment on above: When combined with a low [...] more prevalent in patients with distal DVT. [employer] Phone: laboratory - Chemistry and Chemistry - challenge Ordered By: Araseli Barrett on [phone]/1.73 sq M.predicted MDRD (S/P/Bld) [Vol rate/Area][employer] Phone: comment on above:Average GFR for 30-39 years old: 107 mL/min/1.73sq m Chronic Kidney Disease: <60 mL/min/1.73sq m Kidney failure: <15 mL/min/1.73sq m eGFR calculated using average adult body mass. Additional eGFR calculator available at: http://www.[employer]/multiple_crcl_2012.htm Stage 1: Some kidney damage normal GFR Stage 2: Mild kidney damage GFR 60-89 Stage 3: Moderate kidney damage GFR 30-59 Stage 4: Severe kidney damage GFR 15-29 Stage 5: Severe kidney damage GFR <15 ESRD - chronic treatment by dialysis or transplant MagnesiumOrdered By: Araseli Barrett on 03-65-0786Hhwrvneic [Mass/Vol]1.6 mg/dL1.6 - 2.6 mg/dLChtiogen Phone: [facility]Red [facility] Phone: TroponinOrdered By: Araseli Barrett on 35-09-4397Pieeelmr InterpNOT REPORTEDTrihealth Bet[facility] HospitalRed [facility] Phone: Troponin TNOT REPORTED<0.03 ng/mLTrihealth Bethesda Butler HospitalRed [facility]vertising Phone: Troponin, High Sensitivity<60 - 14 ng/LMlakehealth tripoint medical center [facility] Phone: comment on above: High Sensitivity Troponin values cannot be compared with other Troponin methodologies. Patients with high levels of Biotin oral intake (i.e >5mg/day) may have falsely decreased Troponin levels. Samples collected within 8 hours of biotin intake may require additional information for diagnosis. [employer] Phone: XR CHEST PORTABLEOrdered By: Araseli Barrett on 06-43-2045Hmhqpfai chest.[employer] Phone: eXAMINATION: ONE XRAY VIEW OF THE CHEST 11/01/2020 2:31 pm COMPARISON: 12/08/2014 HISTORY: ORDERING SYSTEM PROVIDED HISTORY: cough FINDINGS: The lungs are without acute focal process. No effusion or pn eumothorax. The cardiomediastinal silhouette is normal. The osseous structures are intact without acute process.[employer] Phone: eJanneth toro Incoming Radiant Results From [employer] - 11/01/2020 2:41 PM EDT EXAMINATION: ONE XRAY VIEW OF THE CHEST 11/01/2020 2:31 pm COMPARISON: 12/08/2014 HISTORY: ORDERING SYSTEM PROVIDED HISTORY: cough FINDINGS: The lungs are without acute focal process. No effusion or pneumothorax. The cardiomediastinal silhouette is normal. The osseous structures are intact without acute process. IMPRESSION: Negative chest. [employer] Phone: [facility] Hospital[facility] Phone: cNPNon [phone] (NEADFV) LEANA TRAN ([id number]) 1985 F Date Time Provider Department 09/15/20 LIS MORAES During your visit today, we recorded the following information about you: Demi Hazel Pss 09/15/2020 4:44 PM Signed Received MRI Brain report by fax from [facility]. Scanned to patient's chart. Savanna [...] 04/07/2015 Encounter Status:Closed by DEMI JOHNSON on 11/17/20[facility] [id number] Visit (NEADFV) LEANA TRAN ([id number]) 1985 F Date Time Provider Department 09/06/20 2:00 PM LIS MORAES NEBRANNONFV During your visit today, we recorded the following information about you: Temperature Pulse Blood pressure Weight 97.8 degrees 67/minute 112/73 102.1 kg Height 1.626 m Lis Moraes MD 09/06/2020 3:10 PM Signed PROGRESS NOTE- HEADACHE SERVICE DATE: September 06, 2020 Location: [facility] Participants: patient and provider Requesting [...] - Iv Contrast [Con (more content not included)...NormalRosl[facility]ale [facility] Vital Signs Date TimeVital SignValuePerforming JvnkrcqflLugychna22-01-9230 11:10-0400Body mass index (BMI) [Ratio]39.22 kg/z0Awaom Lionsharp [employer] Work Phone: NOSt. Joseph Medical CenterKsadzxusdg97-36-9711 11:10-0400Body juvmhu579.65 kgCorey Glenroy DO Work Phone: [facility] CampusMidyorsajg65-80-9180 11:10-0400Diastolic blood pnzdixra87 mm[Hg]Rubens Glenroy DO Work Phone: [facility] CampusSlrezmpfvl65-74-3761 11:10-0400Systolic blood mm[Hg]Rubens Glenroy DO Work Phone: [facility] CampusOlablmpdvj01-59-6333 10:12-0400Body jbanup227.6 cmAkila Yao MD Work Phone: 1(077)[address] [place], [place] 4983410-20-2025 10:12-0400Body mass index (BMI) [Ratio]40.2 kg/l6ZkfmhAkila Yao MD Work Phone: 1(503)[address] [place], [place] 4983410-20-2025 10:12-0400Body jidwhl311.23 kgAkila Yao MD Work Phone: 1(191)[address] [place], [place] 4983410-20-2025 10:12-0400Diastolic blood wsuppwjq30 mm[Hg]Akila Yao MD Work Phone: 1(544)[address] [place], [place] 4983410-20-2025 10:12-0400Heart rate 67 /Yeimy Yao MD Work Phone: 1(663)[address] [place], [place] 4983410-20-2025 10:12-0400 Respiratory rate17 /Yeimy Yao MD Work Phone: 1(244)[address] [place], [place] 4983410-20-2025 10:12-0400Systolic blood mm[Hg]Akila Yao MD Work Phone: 1(540)[address] [place], [place] 4983409-23-2025 08:18-0400Body taolxq811.6 cmSmina Han MD Work Phone: [facility]09-23-2025 08:18-0400Body mass index (BMI) [Ratio]39.32 kg/w4TnnxgfpvqTerri Han MD Work Phone: [facility]09-23-2025 08:18-0400Body vakyahdqncq11.9 [degF]Terri Han MD Work Phone: [facility]09-23-2025 08:18-0400Body wbdmez262.96 kgStadri Han MD Work Phone: [facility]08-26-2025 08:54-0400Body vnemjj046.6 cmMargot Limon ASSEMBLING FABRICATOR.MISCELLANEOUS MACHINE OPERATOR Work Phone: [facility]08-26-2025 08:54-0400Body mass index (BMI) [Ratio]39.45 kg/a3VjxtdjMargot Limon ASSEMBLING FABRICATOR.MISCELLANEOUS MACHINE OPERATOR Work Phone: [facility]08-26-2025 08:54-0400Body temperature 97.5 [degF]Margot Limon ASSEMBLING FABRICATOR.MISCELLANEOUS MACHINE OPERATOR Work Phone: [facility]08-26-2025 08:54-0400Body ihchfe167.3 kgMargot Limon ASSEMBLING FABRICATOR.MISCELLANEOUS MACHINE OPERATOR Work Phone: [facility]08-26-2025 08:54-0400Diastolic blood vrtlhsly39 mm[Hg]Margot Limon ASSEMBLING FABRICATOR.MISCELLANEOUS MACHINE OPERATOR Work Phone: [facility]08-26-2025 08:54-0400Heart rate70 /min Margot Limon ASSEMBLING FABRICATOR.MISCELLANEOUS MACHINE OPERATOR Work Phone: [facility]08-26-2025 08:54-0400Respiratory rate 16 /minMargot Limon ASSEMBLING FABRICATOR.MISCELLANEOUS MACHINE OPERATOR Work Phone: [facility]08-26-2025 08:54-8051BwW2% (BldA) [Mass fraction]100 %Margot Limon ASSEMBLING FABRICATOR.MISCELLANEOUS MACHINE OPERATOR Work Phone: [facility]08-26-2025 08:54-0400Systolic blood iifskbiz653 mm[Hg]Margot Limon ASSEMBLING FABRICATOR.MISCELLANEOUS MACHINE OPERATOR Work Phone: [facility]08-21-2025 15:50-0400Body .6 cmCas Galicia MD Work Phone: [facility] CampusSnuedifhfd04-68-5824 15:50-0400Body mass index (BMI) [Ratio]39.14 kg/m2Cas Galicia MD Work Phone: [facility] CampusUgmftuhrrh63-88-5500 15:50-0400Body temperature 97.5 [degF]Cas Galicia MD Work Phone: [phone] [place], [place] [address]Ypitugmhga32-32-9651 15:50-0400Body cibzha797.42 kgCas Galicia MD Work Phone: [phone] CampusAdtklzwpoa16-35-3501 15:50-0400Diastolic blood ajbdbzps28 mm[Hg]Cas Galicia MD Work Phone: 1(870)62461522 [address] [place], [place] [address]Xukdnrsoov47-10-2452 15:50-0400Heart rate67 /min Cas Galicia MD Work Phone: [phone] CampusPjjrttqbor54-30-8737 15:50-0400Respiratory rate20 /minCas Galicia MD Work Phone: [facility] CampusXmmpjcwnvx14-75-8137 15:50-0185SqX0% (BldA) [Mass fraction]98 %Cas Galicia MD Work Phone: [facility] CampusBdhmwfktnj54-24-8387 15:50-0400Systolic blood ndvwucwz115 mm[Hg]Cas Galicia MD Work Phone: 1(727)105-[address] [place], [place] [address]Rfgyaxaagd02-27-3233 11:44-0400Body rxapvx278.56 cmCas Galicia MD Work Phone: [phone]08-04-2025 11:44-0400 Body mass index (BMI) [Ratio]38.7 kg/m2Cas Galicia MD Work Phone: [phone])[address]08-04-2025 11:44-0400 Body vovoexpwnyt46.3 [degF]Cas Galicia MD Work Phone: [phone]08-04-2025 11:44-0400 Body mtykkz015.51 kgCas Galicia MD Work Phone: [facility]08-04-2025 11:44-0400 Diastolic blood tusvywxo17 mm[Hg]Cas Galicia MD Work Phone: [facility]08-04-2025 11:44-0400 Heart rate74 /minCas Galicia MD Work Phone: [facility]08-04-2025 11:44-0400 Respiratory rate16 /minCas Galicia MD Work Phone: [facility]08-04-2025 11:44-0400 SaO2% (BldA) [Mass fraction]99 %Cas Galicia MD Work Phone: [facility]08-04-2025 11:44-0400 Systolic blood fhnpavzt912 mm[Hg]Cas Galicia MD Work Phone: [facility]07-18-2025 10:23-0400 Body .[address]07-18-2025 10:23-0400Body mass index (BMI) [Ratio]38.28 kg/m[address]07-18-2025 10:23-0400 Body wcpnpu872.[address]07-18-2025 10:23-0400Diastolic blood zfkzahmm36 mm[Hg][address]07-18-2025 10:23-0400 Systolic blood yjxxoidp561 mm[Hg][address]07-07-2025 09:23-0400Body jlabtg027.6 cmCas Galicia MD Work Phone: [facility] CampusJnofvoovfk69-37-6368 09:23-0400Body mass index (BMI) [Ratio]38.96 kg/m2Cas Galicia MD Work Phone: [facility] CampusGwgosejwhj81-38-8376 09:23-0400Body temperature 97.5 [degF]Cas Galicia MD Work Phone: [facility] CampusVhmugixvhq10-39-6205 09:23-0400Body mwhqyz359.97 kgCas Galicia MD Work Phone: [facility] CampusFerwucjeja51-97-7751 09:23-0400Diastolic blood lwithgiu23 mm[Hg]Cas Galicia MD Work Phone: [facility] CampusHpbtkdtvii17-38-3245 09:23-0400Heart rate71 /min Cas Galicia MD Work Phone: [facility] CampusHgtgbndqrv83-47-6491 09:23-0400Respiratory rate20 /minCas Galicia MD Work Phone: [facility] CampusSlsbjkqbmi25-37-3202 09:23-6845BbE6% (BldA) [Mass fraction]99 %Cas Galicia MD Work Phone: [facility] CampusKqolvpwxhc36-15-1125 09:23-0400Systolic blood kuxxxmga074 mm[Hg]Cas Galicia MD Work Phone: [facility] CampusLserwlbipq90-18-0189 08:18-0500Body ajozqu585.6 cmCas Galicia MD Work Phone: [facility] CampusGufridnzyx07-69-2144 08:18-0500Body mass index (BMI) [Ratio]37.76 kg/m2Cas Galicia MD Work Phone: [facility] CampusBmozplupik60-18-9682 08:18-0500Body temperature 97.11 [degF]Cas Galicia MD Work Phone: [facility] CampusBvystsaryk41-31-1448 08:18-0500Body kjxcot88.79 kgCas Galicia MD Work Phone: [facility] CampusLigbwgecby73-45-1860 08:18-0500Diastolic blood ikxfywau40 mm[Hg]Cas Galicia MD Work Phone: [facility] CampusIhoskzglgx43-17-5545 08:18-0500Heart rate77 /min Cas Galicia MD Work Phone: [facility] CampusJetfxndoxb36-11-7730 08:18-0500Respiratory rate20 /minCas Galicia MD Work Phone: [facility] CampusXinhbtzlnu51-03-9499 08:18-7919XxO0% (BldA) [Mass fraction]98 %Cas Galicia MD Work Phone: [facility] CampusRenknhposm37-60-0038 08:18-0500Systolic blood evbciiqm801 mm[Hg]Cas Galicia MD Work Phone: [facility] CampusVrwsrhpnjp67-31-1444 09:59-0500Body .6 cmCas Galicia MD Work Phone: [facility] CampusKquqfxdtnu75-66-9308 09:59-0500Body mass index (BMI) [Ratio]37.93 kg/m2Cas Galicia MD Work Phone: [facility] CampusXjjbytfbiz14-11-4759 09:59-0500Body temperature 97.5 [degF]Cas Galicia MD Work Phone: [facility] CampusYzawtlibaj68-68-2497 09:59-0500Body tyrxgc436.25 kgCas Galicia MD Work Phone: [facility] CampusKbzslwmqeu15-40-5950 09:59-0500Diastolic blood tiqtcgzq82 mm[Hg]Cas Galicia MD Work Phone: [facility] CampusIfwpkvvbqd67-69-3908 09:59-0500Heart rate90 /min Cas Galicia MD Work Phone: [facility] CampusKpbxggewvc16-34-5017 09:59-0500Respiratory rate22 /minCas Galicia MD Work Phone: [facility] CampusMgeqktvjzp51-87-4334 09:59-9400IrS0% (BldA) [Mass fraction]97 %Cas Galicia MD Work Phone: [facility] CampusHzdjqixguj32-23-8909 09:59-0500Systolic blood qhfgnsli853 mm[Hg]Cas Galicia MD Work Phone: [facility] CampusMxddptsmub01-32-8989 10:07-0500Body .6 Joselyn Flowers ASSEMBLING FABRICATOR-MISCELLANEOUS MACHINE OPERATOR Work Phone: [facility]11-27-2024 10:07-0500Body mass index (BMI) [Ratio]38.11 kg/m2Marni Flowers ASSEMBLING FABRICATOR-MISCELLANEOUS MACHINE OPERATOR Work Phone: [facility]11-27-2024 10:07-0500Body lqankn659.7 kgMarni Flowers ASSEMBLING FABRICATOR-MISCELLANEOUS MACHINE OPERATOR Work Phone: [facility]11-27-2024 10:07-0500Diastolic blood mm[Hg]Marni Flowers ASSEMBLING FABRICATOR-MISCELLANEOUS MACHINE OPERATOR Work Phone: [facility]11-27-2024 10:07-0500Heart rate 79 /Chidi Flowers ASSEMBLING FABRICATOR-MISCELLANEOUS MACHINE OPERATOR Work Phone: [facility]11-27-2024 10:07-0500Systolic blood xxmlopsv888 mm[Hg]Marni Flowers ASSEMBLING FABRICATOR-MISCELLANEOUS MACHINE OPERATOR Work Phone: [facility]10-17-2024 09:01-0400Body mass index (BMI) [Ratio]38.42 kg/e1QmfydAkila Yao MD Work Phone: 1(757)678-[address] [place], [place] 3800410-17-2024 09:01-0400Body jcefwr015.52 kgAkila Yao MD Work Phone: 1(799)783-[address] [place], [place] 3800410-17-2024 09:01-0400Diastolic blood mm[Hg]Akila Yao MD Work Phone: 1(403)084-[address] [place], [place] 3800410-17-2024 09:01-0400Heart rate 59 /minAkila Yao MD Work Phone: 1(854)133-[address] [place], [place] 3800410-17-2024 09:01-0400Systolic blood esulikfy985 mm[Hg]Akila Yao MD Work Phone: [facility]10-15-2024 11:40-0400Body mass index (BMI) [Ratio]38.11 kg/r3Pjhip Glenroy DO Work Phone: [facility] CampusSuamsdlbbj06-34-7069 11:40-0400Body .7 kgCorey Glenroy DO Work Phone: [facility] CampusVkhnlyblim75-56-0212 11:40-0400Diastolic blood gdxtywmv78 mm[Hg]Rubens Glenroy DO Work Phone: [place] [address]Cfgsmfkozj89-33-4064 11:40-0400Systolic blood mm[Hg]Rubenssilvio Lehmano DO Work Phone: [facility] CampusAaafjuevlt17-02-4622 10:33-0400Body kegwog395.6 cmTkaitlin Painting MD Work Phone: [facility] CampusZvwzqhwnoj28-81-4154 10:33-0400Body mass index (BMI) [Ratio]37.93 kg/m2Tomikayla Painting MD Work Phone: [facility] CampusOblggxxlqe09-18-9559 10:33-0400Body bcutoo391.25 kgChristy Painting MD Work Phone: [facility] CampusGzjnmlipul79-01-2061 09:06-0400Body chihqw145.6 cmCas Galicia MD Work Phone: [facility] CampusKkplyijyiq51-88-5898 09:06-0400Body mass index (BMI) [Ratio]37.76 kg/m2Cas Galicia MD Work Phone: [facility] CampusHtvjgkktda17-25-5979 09:06-0400Body temperature 97.81 [degF]Cas Galicia MD Work Phone: [facility] CampusGvahrcgyem48-61-5206 09:06-0400Body grigyr28.79 kgCas Galicia MD Work Phone: [facility] CampusSidoftqjfx02-38-2943 09:06-0400Diastolic blood zjtcoyvv45 mm[Hg]Cas Galicia MD Work Phone: [facility] CampusTijcwcutoo66-43-1842 09:06-0400Heart rate82 /min Cas Galicia MD Work Phone: [facility] CampusSnxktymhjk92-70-4539 09:06-0400Respiratory rate20 /minCas Galicia MD Work Phone: [facility] CampusBwyrlvpmhi39-62-3432 09:06-5631TaF3% (BldA) [Mass fraction]98 %Cas Galicia MD Work Phone: [facility] CampusDhnqbbucwp86-37-4639 09:06-0400Systolic blood jaebsado761 mm[Hg]Cas Galicia MD Work Phone: [facility] CampusSntpwuqxbg74-15-3125 14:46-0400Blood Pressure LocationAurora Orzech [facility]08-27-2024 14:46-0400Body hznxhgjaqci49.6 [degF]Bautista Orzech [facility] [place] [address]-27-2024 14:46-0400Diastolic blood mntjcspa53 mm[Hg]Bautista Orzech [facility] [place] [address]-27-2024 14:46-0400Heart rate68 /minAurora Orzech [facility] [place] [address]-27-2024 14:46-0400Respiratory rate16 /minAurora Orzech [facility] [place] [address]-27-2024 14:46-0400Systolic blood wmofwmdn860 mm[Hg]Bautista Orzech [facility] [place] [address]-26-2024 09:45-0400Body .6 Abdulkadir Marinelli MD Work Phone: [facility]08-26-2024 09:45-0400Body mass index (BMI) [Ratio]37.82 kg/i0OezjrFuentes Marinelli MD Work Phone: [facility]08-26-2024 09:45-0400Body temperature 97 [degF]Fuentes Marinelli MD Work Phone: [facility]08-26-2024 09:45-0400Body jannya615 kg Fuentes Marinelli MD Work Phone: [facility]08-26-2024 09:45-0400Diastolic blood eduprftr43 mm[Hg]Fuentes Marinelli MD Work Phone: [facility]08-26-2024 09:45-0400Heart rate71 /min Fuentes Marinelli MD Work Phone: [facility]08-26-2024 09:45-0400Respiratory rate 16 /minFuentes Marinelli MD Work Phone: [facility]08-26-2024 09:45-7516XvH2% (BldA) [Mass fraction]99 %Fuentes Marinelli MD Work Phone: [facility]08-26-2024 09:45-0400Systolic blood ssebfrgt052 mm[Hg]Fuentes Marinelli MD Work Phone: [facility]08-21-2024 09:28-0400Body .6 cmCas Galicia MD Work Phone: noSt. [facility] CenterBqjqngqtku81-93-1219 09:28-0400Body mass index (BMI) [Ratio]38.11 kg/m2Cas Galicia MD Work Phone: noSt. [facility] CenterJjemdipxza54-69-1027 09:28-0400Body temperature 97.81 [degF]Cas Galicia MD Work Phone: noSt. [facility] CenterWljehamxan79-63-7588 09:28-0400Body .7 kgCas Galicia MD Work Phone: [facility] CampusQqfhzjrikk34-57-4084 09:28-0400Diastolic blood koojkpvv71 mm[Hg]Cas Galicia MD Work Phone: [facility] CampusJiyeyqxpak23-77-1577 09:28-0400Heart rate63 /min Cas Galicia MD Work Phone: [facility] CampusFkigedljyk15-90-6036 09:28-0400Respiratory rate18 /minCas Galicia MD Work Phone: [facility] CampusExrbavrrtw29-84-1056 09:28-2108PaL0% (BldA) [Mass fraction]99 %Cas Galicia MD Work Phone: [facility] CampusHtczxcybbd36-26-8578 09:28-0400Systolic blood unaaikvw754 mm[Hg]Cas Galicia MD Work Phone: [facility] CampusEhwgzjcozx42-49-1111 08:47-0400Body mass index (BMI) [Ratio]36.9 kg/l0KamviwSarah Best ASSEMBLING FABRICATOR-MISCELLANEOUS MACHINE OPERATOR Work Phone: 1(634)233-[address] [place], [place] 38[address]404-02-2024 08:47-0400Body zdsvsu87.52 kgSarah Best ASSEMBLING FABRICATOR-MISCELLANEOUS MACHINE OPERATOR Work Phone: 1(585)782-[address] [place], [place] 38[address]404-02-2024 08:47-0400Diastolic blood ojroijto54 mm[Hg]Sarah Best APRN-MISCELLANEOUS MACHINE OPERATOR Work Phone: 1(612)545-[address] [place], [place] 3800404-02-2024 08:47-0400Heart rate 63 /minSarah Best ASSEMBLING FABRICATOR-MISCELLANEOUS MACHINE OPERATOR Work Phone: 1(793)082-[address] [place], [place] 38[address]404-02-2024 08:47-0400Systolic blood xmsallzs556 mm[Hg]Sarah Best ASSEMBLING FABRICATOR-MISCELLANEOUS MACHINE OPERATOR Work Phone: 1(292)793-[address] [place], [place] 3800408-28-2023 09:29-0400Body bctmjy004.6 Abdulkadir Marinelli MD Work Phone: [facility]08-28-2023 09:29-0400Body temperature 97.7 [degF]Fuentes Marinelli MD Work Phone: [facility]08-28-2023 09:29-0400Body .15 kgFuentes Marinelli MD Work Phone: [facility]08-28-2023 09:29-0400Diastolic blood nmxyilql49 mm[Hg]Fuentes Marinelli MD Work Phone: [facility]08-28-2023 09:29-0400Heart rate58 /min Fuentes Marinelli MD Work Phone: [place] [address]-28-2023 09:29-0400Respiratory rate 16 /minFuentes Marinelli MD Work Phone: [facility]08-28-2023 09:29-6354KiY0% (BldA) [Mass fraction]99 %Fuentes Marinelli MD Work Phone: [facility]08-28-2023 09:29-0400Systolic blood vuqzqzqv614 mm[Hg]Fuentes Marinelli MD Work Phone: [facility]08-01-2023 08:23-0400Blood Pressure LocationJENNIFER TEJ [facility]08-01-2023 08:23-0400Diastolic blood roelorsl46 mm[Hg]LORAINE RUBALCAVA [facility]08-01-2023 08:23-0400Heart rate60 /minJENNIFER TEJ [facility]08-01-2023 08:23-0400Systolic blood vsrfajcb087 mm[Hg]LORAINE TEJ [facility]02-27-2023 10:39-0500Body ipkcls068.6 cmVkevon Marinelli MD Work Phone: [facility]02-27-2023 10:39-0500Body temperature 97.9 [degF]Fuentes Marinelli MD Work Phone: [facility]02-27-2023 10:39-0500Body txeebo58.34 kgFuentes Marinelli MD Work Phone: [facility]02-27-2023 10:39-0500Diastolic blood bnpoocrm44 mm[Hg]Fuentes Marinelli MD Work Phone: [facility]02-27-2023 10:39-0500Heart rate74 /min Fuentes Marinelli MD Work Phone: [facility]02-27-2023 10:39-0500Respiratory rate 16 /minFuentes Marinelli MD Work Phone: [facility]02-27-2023 10:39-9434VsX9% (BldA) [Mass fraction]98 %Fuentes Marinelli MD Work Phone: [facility]02-27-2023 10:39-0500Systolic blood teskorzp304 mm[Hg]Fuentes Marinelli MD Work Phone: [facility]01-24-2023 08:30-0500Blood Pressure LocationJENNIFER TEJ [facility]01-24-2023 08:30-0500Diastolic blood efcogwyx10 mm[Hg]LORAINE TEJ [facility]01-24-2023 08:30-0500Heart rate74 /minJENNIFER TEJ [facility]01-24-2023 08:30-0500Respiratory rate16 /minJENNIFER TEJ [facility]01-24-2023 08:30-0500Systolic blood uvehkqwr495 mm[Hg]LORAINE RUBALCAVA [facility]01-06-2023 14:07-0500Body .6 cmVkevon Marinelli MD Work Phone: [facility]01-06-2023 14:07-0500Body temperature 97.9 [degF]Fuentes Marinelli MD Work Phone: [facility]01-06-2023 14:07-0500Body vicsrr15.25 kgFuentes Marinelli MD Work Phone: [facility]01-06-2023 14:07-0500Diastolic blood chqypclu23 mm[Hg]Fuentes Marinelli MD Work Phone: [facility]01-06-2023 14:07-0500Heart rate97 /min Fuentes Marinelli MD Work Phone: [facility]01-06-2023 14:07-0500Respiratory rate 16 /minFuentes Marinelli MD Work Phone: [facility]01-06-2023 14:07-0986SxO0% (BldA) [Mass fraction]99 %Fuentes Marinelli MD Work Phone: [facility]01-06-2023 14:07-0500Systolic blood jfycvkmg699 mm[Hg]Fuentes Marinelli MD Work Phone: [facility]11-16-2022 08:48-0500Blood Pressure Tino RUBALCAVA [facility]11-16-2022 08:48-0500Diastolic blood rpdewsxz32 mm[Hg]LORAINE RUBALCAVA [facility]11-16-2022 08:48-0500Heart rate81 /minLORAINE RUBALCAVA [facility]11-16-2022 08:48-0500Systolic blood wixkwase472 mm[Hg]LORAINE RUBALCAVA [facility]10-14-2022 13:44-0400Body scaqvo546.6 Abdulkadir Marinelli MD Work Phone: [facility]10-14-2022 13:44-0400Body temperature 97.81 [degF]Fuentes Marinelli MD Work Phone: [facility]10-14-2022 13:44-0400Body pgiqnn718.24 kgFuentes Marinelli MD Work Phone: [facility]10-14-2022 13:44-0400Diastolic blood fwqhicsb87 mm[Hg]Fuentes Marinelli MD Work Phone: [facility]10-14-2022 13:44-0400Heart rate66 /min Fuentes Marinelli MD Work Phone: [facility]10-14-2022 13:44-0400Respiratory rate 16 /minFuentes Marinelli MD Work Phone: [facility]10-14-2022 13:44-0264XwV7% (BldA) [Mass fraction]100 %Fuentes Marinelli MD Work Phone: [facility]10-14-2022 13:44-0400Systolic blood lupgtfgj263 mm[Hg]Fuentes Marinelli MD Work Phone: [facility]09-29-2022 10:37-0400Body fawomv073.6 Abdulkadir Marinelli MD Work Phone: [facility]09-29-2022 10:37-0400Body temperature 97.59 [degF]Fuentes Marinelli MD Work Phone: [facility]09-29-2022 10:37-0400Body jpquwr53.97 kgFuentes Marinelli MD Work Phone: [facility]09-29-2022 10:37-0400Diastolic blood etuvngrz20 mm[Hg]Fuentes Marinelli MD Work Phone: [facility]09-29-2022 10:37-0400Heart rate59 /min Fuentes Marinelli MD Work Phone: [facility]09-29-2022 10:37-0400Respiratory rate 16 /minFuentes Marinelli MD Work Phone: [facility]09-29-2022 10:37-8718NpT0% (BldA) [Mass fraction]99 %Fuentes Marinelli MD Work Phone: [facility]09-29-2022 10:37-0400Systolic blood icevjstq376 mm[Hg]Fuentes Marinelli MD Work Phone: [facility]08-23-2022 08:00-0400Body pollit471.6 cmPulm Pine Work Phone: [facility]08-23-2022 08:00-0400Body eqggsh56.79 kgPulm Pine Work Phone: [facility]08-17-2022 15:37-0400Body gmvuha892 cm Ruth Villaseñor MD Work Phone: [facility] HospitalEiziww06-61-8207 15:37-0400Body temperature 97.5 [degF]Ruth Villaseñor MD Work Phone: [place] Lgqxit44-62-4845 15:37-0400Body janqir248.61 kgRuth Villaseñor MD Work Phone: [place] Urulzt97-15-8683 15:37-0400Diastolic blood iserojij99 mm[Hg]Ruth Villaseñor MD Work Phone: [place] [address]-17-2022 15:37-0400Heart rate72 /min Rtuh Villaseñor MD Work Phone: [phone] [address]-17-2022 15:37-9572IfJ9% (BldA) [Mass fraction]97 %Ruth Villaseñor MD Work Phone: [phone] [address]-17-2022 15:37-0400Systolic blood mczafkxs713 mm[Hg]Ruth Villaseñor MD Work Phone: [place] [address]-15-2022 13:59-0400Body temperature 98.29 [degF]Landen Timoteo ASSEMBLING FABRICATOR.MISCELLANEOUS MACHINE OPERATOR Work Phone: [facility]08-15-2022 13:59-0400Body bdfcic64.79 kgLanden Mahmood ASSEMBLING FABRICATOR.MISCELLANEOUS MACHINE OPERATOR Work Phone: [place] [address]-15-2022 13:59-0400Diastolic blood mm[Hg]Landen Mahmood ASSEMBLING FABRICATOR.MISCELLANEOUS MACHINE OPERATOR Work Phone: [facility]08-15-2022 13:59-0400Heart rate70 /min Landen Mahmood ASSEMBLING FABRICATOR.MISCELLANEOUS MACHINE OPERATOR Work Phone: [place] [address]-15-2022 13:59-0400Respiratory rate 18 /minLanden Mahmood ASSEMBLING FABRICATOR.MISCELLANEOUS MACHINE OPERATOR Work Phone: [place] [address]-15-2022 13:59-4447LdP7% (BldA) [Mass fraction]98 %Landen Mahmood ASSEMBLING FABRICATOR.MISCELLANEOUS MACHINE OPERATOR Work Phone: [place] [address]-15-2022 13:59-0400Systolic blood bvvhyuqd328 mm[Hg]Landen Mahmood ASSEMBLING FABRICATOR.MISCELLANEOUS MACHINE OPERATOR Work Phone: [facility]08-01-2022 15:55-0400Diastolic blood efkjkcju83 mm[Hg]Christine Abraham DO Work Phone: [facility]08-01-2022 15:55-0400Heart ktcg580 /minJajayia Abraham DO Work Phone: [employer] [facility]ITALWLNAVL45-05-0934 15:55-0400 Respiratory rate28 /minChristine Abraham DO Work Phone: [employer] [facility] HOSPITALLagrange SystemsTKIZOE78-22-1765 15:55-9634JhE6% (BldA) [Mass fraction]96 %Christine Perezbal DO Work Phone: [facility] HOSPITALJumpstarter [facility] HOSPITALSLBOTZ93-33-0639 15:55-0400Systolic blood anqgzibb120 mm[Hg]Christine Perezbal DO Work Phone: [facility]08-01-2022 13:29-0400Body eltqmj378.6 cmChristine Perezbal DO Work Phone: [facility]08-01-2022 13:29-0400Body mass index (BMI) [Ratio]37.25 kg/b5JwugzocChristine Perezbal DO Work Phone: [facility]08-01-2022 13:29-0400Body wlsajgyveur30.2 [degF]Christine Abraham DO Work Phone: [facility]08-01-2022 13:29-0400Body fklzym83.43 kgChristine Perezbal DO Work Phone: [facility]07-11-2022 08:54-0400Body okuriw852.6 cmBerlin Avila III, MD Work Phone: [facility]07-11-2022 08:54-0400Body ajjnbq58.84 kgBerlin Avila III, MD Work Phone: [facility]07-08-2022 10:00-0400Body jleiru581.6 cmMedical Telephone Interviewer Work Phone: [facility]07-08-2022 10:00-0400Body xiiqmz52 kg Nut Former Work Phone: [facility]07-08-2022 10:00-0400Diastolic blood ivbznwce37 mm[Hg]Nut Former Work Phone: [facility]07-08-2022 10:00-0400Heart rate79 /min Nut Former Work Phone: [facility]07-08-2022 10:00-0400Systolic blood fuzfioqc373 mm[Hg]Nut Former Work Phone: [facility]06-20-2022 09:30-0400Body butbnn503.6 Susan Rushing MD Work Phone: [phone]06-20-2022 09:30-0400Body temperature 97.2 [degF]Henny Rushing MD Work Phone: [phone]06-20-2022 09:30-0400Body xvfgme83.48 kgHenny Rushing MD Work Phone: [facility]06-20-2022 09:30-0400Diastolic blood fcgkaboo80 mm[Hg]Henny Rushing MD Work Phone: [phone]06-20-2022 09:30-0400Heart rate83 /min Henny Rushing MD Work Phone: [phone]06-20-2022 09:30-0400Respiratory rate 14 /minHenny Rushing MD Work Phone: [phone]06-20-2022 09:30-6308ZoF0% (BldA) [Mass fraction]99 %Henny Rushing MD Work Phone: [phone]06-20-2022 09:30-0400Systolic blood yrouphgt790 mm[Hg]Henny Rushing MD Work Phone: [facility]06-17-2022 14:12-0400Body .6 Neida Bass MD Work Phone: [facility]06-17-2022 14:12-0400Body temperature 97.5 [degF]Yan Bass MD Work Phone: [facility]06-17-2022 14:12-0400Body czxjnu96.98 kgSiddharth Kunte MD Work Phone: [facility]06-17-2022 14:12-0400Diastolic blood mm[Hg]Yan Bass MD Work Phone: [facility]06-17-2022 14:12-0400Heart rate71 /min Yan Bass MD Work Phone: [facility]06-17-2022 14:12-0400Respiratory rate 16 /minSdeni Bass MD Work Phone: [facility]06-17-2022 14:12-0034FtU9% (BldA) [Mass fraction]97 %Yan Bass MD Work Phone: [facility]06-17-2022 14:12-0400Systolic blood dhsytkib501 mm[Hg]Yan Bass MD Work Phone: [facility]06-16-2022 13:36-0400Respiratory rate 20 /minSai Perez MD Work Phone: [facility]06-16-2022 13:36-3668UtV0% (BldA) [Mass fraction]100 %Sai Perez MD Work Phone: [facility]06-16-2022 13:29-0400Diastolic blood qiqvffdd00 mm[Hg]Sai Perez MD Work Phone: [facility]06-16-2022 13:29-0400Heart rate62 /min Sai Perez MD Work Phone: [place] [address]-16-2022 13:29-0400Systolic blood kyodinsd606 mm[Hg]Sai Perez MD Work Phone: [facility]06-09-2022 10:40-0400Diastolic blood ifrrzsta87 mm[Hg]Aldo Ann MD Work Phone: [facility]06-09-2022 10:40-0400Heart rate74 /min Aldo Ann MD Work Phone: [facility]06-09-2022 10:40-0127CnA8% (BldA) [Mass fraction]98 %Aldo Ann MD Work Phone: [facility]06-09-2022 10:40-0400Systolic blood pqfepzkn646 mm[Hg]Aldo Ann MD Work Phone: [facility]06-01-2022 12:39-0400Body vjasgw635.6 cmTracee Mcintyre MD Work Phone: [phone]06-01-2022 12:39-0400Body .52 kgTracee Mcintyre MD Work Phone: [phone]06-01-2022 12:39-0400Diastolic blood hedeqtio83 mm[Hg]Tracee Mcintyre MD Work Phone: [phone]06-01-2022 12:39-0400Heart rate61 /min Tracee Mcintyre MD Work Phone: [phone]06-01-2022 12:39-0400Respiratory rate 16 /minTracee Mcintyre MD Work Phone: [phone]06-01-2022 12:39-3011WfK5% (BldA) [Mass fraction]99 %Tracee Mcintyre MD Work Phone: [phone]06-01-2022 12:39-0400Systolic blood mm[Hg]Tracee Mcintyre MD Work Phone: [facility]05-27-2022 10:02-0400Body vsuqmt166.6 cmSdeni Bass MD Work Phone: [facility]05-27-2022 10:02-0400Body temperature 97.59 [degF]Yan Bass MD Work Phone: [facility]05-27-2022 10:02-0400Body .98 kgSidiana Bass MD Work Phone: [facility]05-27-2022 10:02-0400Diastolic blood uttpofjs62 mm[Hg]Yan Bass MD Work Phone: [facility]05-27-2022 10:02-0400Heart rate87 /min Yan Bass MD Work Phone: [facility]05-27-2022 10:02-0400Respiratory rate 16 /minSdeni Bass MD Work Phone: [facility]05-27-2022 10:02-6528SbG0% (BldA) [Mass fraction]99 %Yan Bass MD Work Phone: [facility]05-27-2022 10:02-0400Systolic blood mm[Hg]Yan Bass MD Work Phone: [facility]05-23-2022 11:45-0400Diastolic blood rtazexdr21 mm[Hg]Peter Taqueriazzo ASSEMBLING FABRICATOR.MISCELLANEOUS MACHINE OPERATOR Work Phone: [facility]05-23-2022 11:45-0400Heart rate96 /min Peter Taqueriazzo ASSEMBLING FABRICATOR.MISCELLANEOUS MACHINE OPERATOR Work Phone: [facility]05-23-2022 11:45-0400Respiratory rate 20 /minPeter Mengzzo ASSEMBLING FABRICATOR.MISCELLANEOUS MACHINE OPERATOR Work Phone: [facility]05-23-2022 11:45-0911QuL0% (BldA) [Mass fraction]99 %Peter Taqueriazzo ASSEMBLING FABRICATOR.MISCELLANEOUS MACHINE OPERATOR Work Phone: [facility]05-23-2022 11:45-0400Systolic blood wzdtwuvd869 mm[Hg]Peter Guzzo ASSEMBLING FABRICATOR.MISCELLANEOUS MACHINE OPERATOR Work Phone: [place] [address]-23-2022 11:30-0400Body temperature 98.1 [degF]Peter Guzzo ASSEMBLING FABRICATOR.MISCELLANEOUS MACHINE OPERATOR Work Phone: [facility]05-23-2022 10:53-0400Body .6 cmNicholas Guzzo ASSEMBLING FABRICATOR.MISCELLANEOUS MACHINE OPERATOR Work Phone: [facility]05-23-2022 10:53-0400Body fnjopm70.71 kgPeter Knight APRN.MISCELLANEOUS MACHINE OPERATOR Work Phone: [facility]05-17-2022 01:00-0400Diastolic blood dqwgbqro58 mm[Hg]Sean Andes DO Work Phone: [facility] InstituteHfolao66-11-6367 01:00-0400Heart rate87 /min Sean Andes DO Work Phone: [place] [address]Lybvqi94-71-4255 01:00-0400Respiratory rate21 /minJustin Andes DO Work Phone: [place] [address]Ebzmlf71-25-9797 01:00-7727AmD3% (BldA) [Mass fraction]90 %Sean Andes DO Work Phone: [facility] InstituteNhvbih42-07-4420 01:00-0400Systolic blood mm[Hg]Sean Andes DO Work Phone: [facility] InstituteSqyofr97-41-2637 00:04-0400Body zheotgqwyyo83.6 [degF]Sean Andes DO Work Phone: [facility] InstituteBhgnsa60-86-5690 09:07-0400Body .6 cm Jackelyn Marques MD Work Phone: [facility]05-10-2022 09:07-0400Body syfqqm09.66 kgJackelyn Marques MD Work Phone: [facility]05-10-2022 09:07-0400Diastolic blood qowwxonf90 mm[Hg]Jackelyn Marques MD Work Phone: [facility]05-10-2022 09:07-0400Heart rate71 /min Jackelyn Marques MD Work Phone: [facility]05-10-2022 09:07-0400Systolic blood tnootgyo246 mm[Hg]Jackelyn Marques MD Work Phone: [facility]05-06-2022 09:45-0400Body gliqhj773.6 cmSdeni Bass MD Work Phone: [facility]05-06-2022 09:45-0400Body temperature 97.39 [degF]Yan Bass MD Work Phone: [facility]05-06-2022 09:45-0400Body .61 kgSidiana Bass MD Work Phone: [facility]05-06-2022 09:45-0400Diastolic blood fpcacjhu79 mm[Hg]Yan Bass MD Work Phone: [facility]05-06-2022 09:45-0400Heart rate64 /min Yan Bass MD Work Phone: [facility]05-06-2022 09:45-0400Respiratory rate 16 /minSdeni Bass MD Work Phone: [facility]05-06-2022 09:45-2645FyB6% (BldA) [Mass fraction]100 %Yan Bass MD Work Phone: [facility]05-06-2022 09:45-0400Systolic blood nmdinksq757 mm[Hg]Yan Bass MD Work Phone: [facility]04-30-2022 19:43-0400Diastolic blood pkxeggis74 mm[Hg]Brian Santana MD Work Phone: [facility] InstituteManzgc77-43-0562 19:43-0400Heart rate69 /min Brian Santana MD Work Phone: [facility] InstituteSjueny06-28-3147 19:43-0400Respiratory rate23 /minBrian Santana MD Work Phone: [facility] InstituteDxeeva71-17-4723 19:43-2080GqZ3% (BldA) [Mass fraction]92 %Brian Santana MD Work Phone: [facility] InstituteHhrskk24-32-7964 19:43-0400Systolic blood qephdiuz432 mm[Hg]Brian Santana MD Work Phone: [facility] InstituteTfpfup18-11-0402 16:26-0400Body mass index (BMI) [Ratio]36.22 kg/s7Zzwjukhoward Santana MD Work Phone: [facility] InstituteYoejzd53-36-2961 16:26-0400Body aqdtdqliuvi19.4 [degF]Brian Santana MD Work Phone: [facility] InstituteMtqmuq10-00-3746 16:26-0400Body amnsfk75.71 kg Brian Santana MD Work Phone: [facility] InstituteGbfydf65-54-3080 18:43-0400Diastolic blood mm[Hg]Cas Galicia MD Work Phone: [facility] InstituteXxjkvh33-34-5775 18:43-0400Heart rate53 /minLisac Grayson PEREZ Work Phone: [facility] InstituteCjhsqm53-72-5305 18:43-0400Respiratory rate16 /minCas Galicia MD Work Phone: [facility] InstituteJtdnfo33-17-1394 18:43-1505IiS3% (BldA) [Mass fraction]96 %Cas Galicia MD Work Phone: [facility] InstitutePoqczj55-73-9366 18:43-0400Systolic blood tdjxaytv662 mm[Hg]Cas Galicia MD Work Phone: [facility] Pulyuq30-58-6119 12:55-0400Body sqcrko378.6 cm Cas Galicia MD Work Phone: [facility] Jgjpyg39-13-3867 12:55-0400Body mass index (BMI) [Ratio]36.22 kg/m2Cas Galicia MD Work Phone: [facility] Ndcsbd66-63-3925 12:55-0400Body .71 kg Cas Galicia MD Work Phone: [facility] Kkjkgt06-11-4785 19:39-0500Body wefwobllvml62.39 [degF]Mike Stevenson [facility] CampusQvobqt45-03-2846 19:39-0500Diastolic blood mm[Hg]Mike Stevenson [facility] CampusOsdirv24-27-4621 19:39-0500Heart rate55 /Tanna Stevenson MD [facility] InstituteOwweup15-51-4289 19:39-0500Respiratory rate15 /[facility] 04-16-2021 19:39-0485LhJ0% (BldA) [Mass fraction]98 %Mike Stevenson [facility] 04-16-2021 19:39-0500Systolic blood wrikdwfj778 mm[Hg]Mike Stevenson [facility] 11-01-2020 17:24-0144GtZ7% (BldA) [Mass fraction]94 %Araseli Barrett MD Work Phone: [facility] [employer] Work Phone: 1(689) 432-742709-27-2021 16:20-0400Diastolic blood igqbqube65 mm[Hg] Araseli Barrett MD Work Phone: [facility] [employer] Work Phone: 1(512) 263-740309-27-2021 16:20-0400Systolic blood vhqahdok207 mm[Hg] Araseli Barrett MD Work Phone: [facility] [employer] Work Phone: 1(837) 556-673609-27-2021 15:48-0400Body rhefazdgvbl319.61 [degF] Araseli Barrett MD Work Phone: [facility] [employer] Work Phone: 1(432) 989-836809-27-2021 13:32-0400Body mass index (BMI) [Ratio] 37.76 kg/e1DgbdcxkAraseli Barrett MD Work Phone: [facility] [employer] Work Phone: 1(639) 728-450109-27-2021 13:32-0400Body zbaiyk48.79 kgAraseli Barrett MD Work Phone: [facility] [employer] Work Phone: 1(739) 276-576709-27-2021 13:32-0400Heart rate91 /minAraseli Barrett MD Work Phone: [facility] [employer] Work Phone: 1(711) 339-803209-27-2021 13:32-0400Respiratory rate22 /minAraseli Barrett MD Work Phone: [phone] Work Phone: 1(489) 115-777505-09-2021 05:10-0400Diastolic blood xvnymjou44 mm[Hg] Kody Cm MD Work Phone: [facility] [employer] Work Phone: 1(887) 888-395405-09-2021 05:10-0400Systolic blood kihktzgt364 mm[Hg] Kody Cm MD Work Phone: [facility] [employer] Work Phone: 1(293) 378-474105-09-2021 05:09-0400Body xhgkolyqvpi49.8 [degF]Kody Cm MD Work Phone: [facility] [employer] Work Phone: 1(313) 518-476205-09-2021 05:09-0400Heart rate74 /minScindi Cm MD Work Phone: [phone] [employer] Work Phone: 1(444) 830-724505-09-2021 05:09-0400Respiratory rate12 /minScindi Cm MD Work Phone: [facility] Work Phone: 1(483) 125-802105-09-2021 05:09-1810BgC6% (BldA) [Mass fraction]97 % Kody Cm MD Work Phone: [facility] Work Phone: Encounters Encounter DateEncounter TypeCare ProviderFacilityStart: 66-36-5994anzthfmpqo Bautista X OrzechFacility:[facility] BellevueStart: 12-06-2024 End: 09-37-9992KhweurHbgbhCatalina Yao MD Work Phone: [facility] Adult EndocrinologyComment on above: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Start: 12-01-2024 End: 56-62-0622Gvmqun flowsheetCorey Glenroy DO Work Phone: [facility] OBGYNStart: 12-01-2024 End: 92-87-4818Zoiawc flowsheetCorey Glenroy DO Work Phone: [facility] OBGYNStart: 12-01-2024 End: 31-54-2021Ylrxmcvqr Result EncounterSunnimegan Carlos NAVA Work Phone: [facility] External Department UnsolicitedStart: 12-01-2024 End: 19-77-6846hjekpvijiwOBJXD FAZIONot AvailableStart: 12-01-2024 End: 76-93-1235Wrmdqro encounter procedureCorey Glenroy DO Work Phone: [facility] HealthcareStart: 12-01-2024 End: 89-60-6332Smpftrqw preventive med est patient 40-64yrsCorey Glenroy DO Work Phone: [facility] Jim OBGYNComment on above:Postmenopausal HRT (hormone replacement therapy) (Primary Dx); Well woman exam with routine gynecological exam; Encounter for screening mammogram for malignant neoplasm of breast; Hormone disorderStart: 11-27-2024 End: 99-99-7403Pyffrm Edgar Yao MD Work Phone: [facility] HospitalComment on above: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 Start: 10-28-2024 End: 38-25-1413Itbaxt outpatient visit 25 minutesTerri Han MD Work Phone: [facility] - ENTComment on above: Chronic sinusitis (Primary Dx); Vocal cord dysfunction; Geographic tongue; Hypertrophy of both inferior nasal turbinates; Tympanosclerosis, bilateral; Severe persistent asthma without complication ([facility])Start: 10-28-2024 End: 53-95-7331yeegvgfvsyLRGGQNTQF M COLEPaulding County Hospitaltart: 10-09-2024 End: 88-81-0534jtfkgztnniYpclbb X OrzechFacility:[facility] Centertart: 10-09-2024 End: 36-70-3059Vrteqfr encounter procedureAurora X Orzech [facility] start: 09-30-2024 End: 82-86-4850Ahwqotxli Result EncounterGeneric External Data ProviderNOMS External Department UnsolicitedStart: 09-30-2024 End: 51-29-9355Dblfsbeyu Result EncounterGeneric External Data ProviderNOMS External Department UnsolicitedStart: 09-30-2024 End: 18-44-5942Ijuipr outpatient visit 15 Roxanna Limon LINDY Work Phone: Hematology/OncologyComment on above:POTS (postural orthostatic tachycardia syndrome) (Primary Dx); Bleeding disorder; Qualitative platelet disorder (HCC); Systemic lupus erythematosus, unspecified SLE type, unspecified organ involvement status (HCC); Celiac disease (HCC); Irritable bowel syndrome without diarrhea; History of 2019 novel coronavirus disease (COVID-19); Status post hysterectomyStart: 09-30-2024 End: 26-36-9308ulzsmuijvmNNQDA ABHYANKARFacility:[facility] Hospitaltart: 09-29-2024 End: 46-71-6592Zrhwanskb Result EncounterCas Glaicia MD Work Phone: [facility] External Department UnsolicitedStart: 09-29-2024 End: 44-59-2620Zfagqucbg Result EncounterCas Galicia MD Work Phone: noms External Department UnsolicitedStart: 09-26-2024 ambulatoryWVUMedicine Harrison Community Hospitaltart: 09-25-2024 End: 23-32-2499Ncttds outpatient visit 25 minutesCas Galicia MD Work Phone: noms CWM FMComment on above:Chronic rhinosinusitis (Primary Dx); Right wrist pain; Right forearm painStart: 09-25-2024 End: 28-91-9414kzfnrpljxtZTSP NADERERNot AvailableStart: 09-25-2024 End: 55-12-0311Sstina Janelle Galicia MD Work Phone: noms CWM FMStart: 09-25-2024 End: 50-76-6312Fgqkpm Janelle Galicia MD Work Phone: noms CWM FMStart: 09-15-2024 End: 04-73-6182ItgcxqCeuxChriss KOWALSKI Work Phone: [facility] HospitalComment on above:Migraine without aura and without status migrainosus, not intractableStart: 09-08-2024 End: 77-90-0960sczwwnsczkVqcb Naderer MD Work Phone: [facility] Work Phone: Start: 09-08-2024 End: 63-64-9325Esaxbzx encounter procedurePatriccrissy Becerra ASSEMBLING FABRICATOR-[facility] Work Phone: Start: 97-60-3837kljabnwceiCWAGTriHealth Bethesda Butler Hospitaltart: 08-22-2024 End: 03-78-0238hfkawfrkxkABDMSVDCleveland Clinic Euclid Hospitaltart: 08-22-2024 End: 40-76-5690Ugxygppgki hospital visit by physicianGood [facility]aritan [facility] Hospital Echo [address] [place] [address] Non-Invasive CardiologyComment on above:Edema, unspecified type; Palpitations with regular cardiac rhythmStart: 99-54-7462eqvzhtgmbmSCUOM ABELOhioHealth Riverside Methodist Hospitaltart: 08-12-2024 End: 97-19-5046gzarhgwctiOJEXXZX CHERYLAshtabula General Hospital Start: 08-11-2024 End: 18-13-8396Egxkco flowsJossy Galicia MD Work Phone: noms CWM FMStart: 08-11-2024 End: 95-68-6595Accvmg flowsJossy Galicia MD Work Phone: noms CWM FMStart: 08-11-2024 End: 32-37-3449Fxtvazvuj Result EncounterCas Galicia MD Work Phone: noms External Department UnsolicitedStart: 08-11-2024 End: 76-82-6700Jxeqclm encounter procedureCas Galicia MD Work Phone: [facility] Work Phone: Start: 08-11-2024 End: 40-14-5114Ffhadqkx preventive med est patient 40-64yrsMarc Grayson EPREZ Work Phone: noms CW FMComment on above:Annual physical exam (Primary Dx); Type 2 diabetes mellitus with hyperglycemia, without long-term current use of insulin (HCC); Primary hypothyroidism ; Edema of both legsStart: 08-11-2024 End: 03-80-0410DwtuncRxpeChriss KOWALSKI Work Phone: [facility] of [facility] HospitalComment on above:Migraine without aura and without status migrainosus, not intractableStart: 86-53-8985lnvlvbfirpXCIQ JASPERFirelands Regional Medical Centertart: 07-08-2024 End: 73-80-8978Qynhsg flowsheetJodi SERRA Work Phone: N[facility]S TSR DERMStart: 07-08-2024 End: 42-35-9763Atjbrg flowsheetBeatriceon Joshua Holden PA Work Phone: [facility] TSR DERMStart: 07-08-2024 End: 41-54-6903Plxewc outpatient visit 25 minutesBeatricealicia Joshua SERRA Work Phone: noms TSR DERMComment on above:Melanocytic nevus of trunk (Primary Dx); Other specified dermatitis; Dermatofibroma of right upper extremityStart: 07-08-2024 End: 83-58-4298fsvipuhngdBZZABO Joshua HOLDENNot AvailableStart: 07-01-2024 End: 88-17-0168Wjiiwe outpatient visit 15 minutesMarni Flowers APRN-MISCELLANEOUS MACHINE OPERATOR Work Phone: [facility] of [facility] HospitalComment on above: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 (Primary Dx); Migraine without aura and without status migrainosus, not intractable; Word finding difficulty; Trapezius muscle spasm; Memory difficulties; Hypersomnia with sleep apnea; 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; Cervicalgia; Brain fogStart: 07-01-2024 End: 49-46-7147nndimrdnatMYHGMorrow County Hospitaltart: 05-18-2024 End: 77-55-2634Ghurxymwp encounterMarc Grayson PEREZ Work Phone: noms CWM FMComment on above:Med RefillStart: 79-25-6266bejyhnsfodAZVS Mercy Healthtart: 05-08-2024 End: 30-89-0748etavmhynalTghjfhijz Schumacher Steiner MDFacility:[facility]Start: 05-01-2024 End: 20-71-6394Meqnlsigq Result EncounterGeneric External Data ProviderNOMS External Department UnsolicitedStart: 05-01-2024 End: 31-93-3440Mjmarvrwb Result EncounterGeneric External Data ProviderNOMS External Department UnsolicitedStart: 05-01-2024 End: 21-71-1536JbdankSjecyCatalina Yao MD Work Phone: [facility] Adult EndocrinologyComment on above: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Start: 04-18-2024 End: 33-93-8996Bovqlrhwz Result EncounterGeneric External Data ProviderNOMS External Department UnsolicitedStart: 04-18-2024 End: 64-96-6578Tfywjscci Result EncounterGeneric External Data ProviderNOMS External Department UnsolicitedStart: 72-25-7693fxjdghaxfiISOUKindred Hospital Daytontart: 03-30-2024 End: 32-02-1939ZhpiwuOryrhCatalina Yao MD Work Phone: [facility] Adult EndocrinologyComment on above: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Start: 02-27-2024 End: 29-14-2744Izrenp Janelle Galicia MD Work Phone: noms CWM FMStart: 02-27-2024 End: 32-97-6297Nsgoub Janelle Galicia MD Work Phone: noms CWM FMStart: 02-27-2024 End: 40-92-1551Oydfmp outpatient visit 15 minutesMardario Galicia MD Work Phone: noms CWM FMComment on above:COVID-19 (Primary Dx); Moderate persistent asthma without complication (CMS/HCC)Start: 02-27-2024 End: 79-01-5016zsndrhdabjVZUF NADERERNot AvailableStart: 02-22-2024 End: 76-78-7432SpqmnqQixc G Loomus MD Work Phone: [facility] Adult NeurologyStart: 02-20-2024 End: 17-72-9360Vqujlkvga Result EncounterGeneric External Data ProviderNOMS External Department UnsolicitedStart: 02-20-2024 End: 39-18-2691Cvqpeygrz Result EncounterGeneric External Data ProviderNOMS External Department UnsolicitedStart: 01-47-7759ycvqtwcuozWOEKTriHealth Bethesda Butler Hospitaltart: 02-11-2024 End: 40-38-9611Fhjzkp flowsJossy Galicia MD Work Phone: noms CWM FMStart: 02-11-2024 End: 66-81-5324Vdsxpi Janelle Galicia MD Work Phone: noms CWM FMStart: 02-11-2024 End: 75-13-0672Cnybngvcz Result EncounterCas Galicia MD Work Phone: noms External Department UnsolicitedStart: 02-11-2024 End: 59-28-0583zcczrwxlngQDXB NADERERNot AvailableStart: 02-11-2024 End: 86-46-3992Pyixrq outpatient visit 25 minutesCas Galicia MD Work Phone: noms CWM FMComment on above:Type 2 diabetes mellitus with hyperglycemia, without long-term current use of insulin (CMS/HCC) (Primary Dx); Autonomic dysfunction; Chronic deua-PUTYH-70 syndrome; Moderate persistent asthma without complication (CMS/HCC); Chronic allergic rhinitis due to pollen; Edema of both legs; MDD (major depressive disorder), recurrent episode, mild (HCC) (CMS/HCC); Class 2 severe obesity due to excess calories with serious comorbidity and body mass index (BMI) of37.0 to 37.9 in adult (CMS/HCC); Gastroesophageal reflux disease without esophagitisStart: 02-05-2024 End: 44-94-8492igqakgvpimUVOFLPremier Health [facility] Start: 59-09-1050vxinhxrwsuEJCTWVUMedicine Harrison Community Hospitaltart: 30-65-5143vnjgnvtyvaZWEDWVUMedicine Harrison Community Hospitaltart: 39-38-4307ekxmidrytbDUCMWVUMedicine Harrison Community Hospitaltart: 01-02-2024 End: 40-16-8151Ngixqxwfm Ruth KOWALSKI Work Phone: [facility] Adult NeurologyStart: 01-02-2024 End: 75-33-3055Gnfvgu outpatient visit 25 minutesMarni Flowers ASSEMBLING FABRICATOR-MISCELLANEOUS MACHINE OPERATOR Work Phone: [facility] Adult NeurologyComment on above: Migraine without aura and without status migrainosus, not intractable (Primary Dx); 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; 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; Cervicalgia; Hypersomnia with sleep apnea; Memory difficulties; KATELIN (obstructive sleep apnea); Trapezius muscle spasm; Word finding difficultyStart: 01-02-2024 End: 44-75-6874lxzcopaxvnYGAQSidney & Lois Esken[facility] Hospital Ambulatory PPGStart: 01-01-2024 End: 64-97-2646ohutlpnqbnFvihdfdbo Schumacher Steiner MDFacility:[facility] NorthStart: 12-27-2023 End: 69-97-6479wxefpumqptOBITXPY J MYERSMercy Dayton HospitalStart: 12-27-2023 End: 35-82-3655Dphqcvuscz hospital visit by physicianCas Galicia MD Work Phone: mt LaboratoryStart: 12-27-2023 End: 89-53-4962Jnjsfglwc Result EncounterGeneric External Data ProviderNOMS External Department UnsolicitedStart: 12-27-2023 End: 96-35-4021Vforgcoxv Result EncounterGeneric External Data ProviderNOMS External Department UnsolicitedStart: 43-46-6520jnublpcivjZTXY [facility]cy Healthtart: 12-19-2023 End: 98-49-8493jmnxtelsdyXRHCP A WALSHMercy Dayton HospitalStart: 12-19-2023 End: 12-78-1295Ksvoulivub hospital visit by physicianGood [facility]aritan [facility] Pulmonary Function Room [facility] PFTComment on above:Moderate asthma without complication, unspecified whether persistentStart: 12-06-2023 End: 94-11-5848VavrfqZzrc Hunter ASSEMBLING FABRICATOR-MISCELLANEOUS MACHINE OPERATOR Work Phone: [facility] Adult NeurologyStart: 11-30-2023 End: 12-84-5069ahtuggokkdNnfx Anthony Naderer MDFacility:[facility] Start: 11-27-2023 End: 51-72-3971Rjpvkjkzb Result EncounterGeneric External Data ProviderNOMS External Department UnsolicitedStart: 11-27-2023 End: 43-55-3761Frqkubdlf Result EncounterGeneric External Data ProviderNOMS External Department UnsolicitedStart: 11-26-2023 End: 78-05-1449Bkbvxdsyo Result EncounterGeneric External Data ProviderNOMS External Department UnsolicitedStart: 11-26-2023 End: 86-09-0427Aktcyvrrd Result EncounterGeneric External Data ProviderNOMS External Department UnsolicitedStart: 11-22-2023 End: 01-73-5304Awacgj outpatient visit [facility] hospitalAkila Yao MD Work Phone: [facility] Adult EndocrinologyComment on above: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)Start: 11-22-2023 End: 59-17-7644dducpiwkhyHWZLL E HUTCHINSONMercy Memorial Hospital Ambulatory PPG Start: 11-20-2023 End: 14-61-9533Bregyz flowsheetCorey Glenroy DO Work Phone: noms BCP OBStart: 11-20-2023 End: 25-71-0212Vvwtpv flowsheetCorey Glenroy DO Work Phone: noms BCP OBStart: 11-20-2023 End: 63-33-9216Fwkcxuxko Result EncounterGeneric External Data ProviderNOMS External Department UnsolicitedStart: 11-20-2023 End: 47-99-9087Jdyurmw encounter procedureCorey Glenroy DO Work Phone: [facility] Work Phone: Start: 11-20-2023 End: 48-22-5523Ucnpqbtj preventive med est patient 18-39 yrsCorey Glenroy DO Work Phone: noms BCP OBComment on above:PCOS (polycystic ovarian syndrome) (Primary Dx); Well woman exam with routine gynecological exam; Hormone disorderStart: 11-07-2023 End: 70-54-7046Jyryqh flowsheetChritsy Painting MD Work Phone: NOMS SWS ALLStart: 11-07-2023 End: 91-25-5026Dyhspv flowsheetChristy Painting MD Work Phone: N[facility]S SWS ALLStart: 11-07-2023 End: 09-19-8958Xtehrihzp encounterTomikayla Painting MD Work Phone: NOMS SWS ALLStart: 11-07-2023 End: 49-81-2807Vodllg outpatient new 60 minutesTomikayla Painting MD Work Phone: NOMS SWS ALLComment on above:Severe persistent asthma with (acute) exacerbation (CMS/HCC) (Primary Dx); Allergic reaction, subsequent encounter; Gastroesophageal reflux disease without esophagitis; Vocal cord dysfunctionStart: 10-30-2023 End: 64-11-0345HhpdmlWvleChriss KOWALSKI Work Phone: [facility] Adult NeurologyStart: 10-23-2023 End: 63-03-5191Mvtgzl OnlyCas Galicia MD Work Phone: NOMS CWM FMStart: 10-10-2023 End: 18-14-4283Lxgsxv flowsJossy Galicia MD Work Phone: [facility] CWM FMStart: 10-10-2023 End: 33-80-9271Qgmewi Janelle Galicia MD Work Phone: NOMS CW FMStart: 10-10-2023 End: 34-21-3045Vjdwxv outpatient visit 25 minutesCas Galicia MD Work Phone: NOMS CWM FMComment on above:Type 2 diabetes mellitus with hyperglycemia, without long-term current use of insulin (CMS/HCC) (Primary Dx); Chronic pelw-CWVCQ-86 syndrome; Moderate persistent asthma without complication (CMS/HCC); Chronic allergic rhinitis due to pollen; Edema of both legsStart: 10-09-2023 End: 38-77-2368Gukufiyzh Result EncounterGeneric External Data ProviderNOMS External Department UnsolicitedStart: 10-09-2023 End: 38-98-1366Jgxmuycyc Result EncounterGeneric External Data ProviderNOMS External Department UnsolicitedStart: 10-02-2023 End: 40-74-8752Ojyedac encounter procedureAumilla Overton [facility] start: 10-01-2023 End: 58-47-9338Obfdtimbu Result EncounterGeneric External Data ProviderNOMS External Department UnsolicitedStart: 10-01-2023 End: 49-66-0117Cayirdisz Result EncounterGeneric External Data ProviderNOMS External Department UnsolicitedStart: 10-01-2023 End: 49-12-3403Jjplep outpatient visit 15 minutesFuentes Marinelli MD Work Phone: Hematology/OncologyComment on above:Qualitative platelet disorder (HCC) (Primary Dx); POTS (postural orthostatic tachycardia syndrome)Start: 09-26-2023 End: 90-15-7473Whyhfq Janelle Galicia MD Work Phone: noms CW FMStart: 09-26-2023 End: 44-64-7162Cvqwov Janelle Galicia MD Work Phone: noms CW FMStart: 09-26-2023 End: 86-51-0691Ejvaoi outpatient visit 15 minutesCas Galicia MD Work Phone: [facility]oms [facility] FMComment on above:Allergic reaction, subsequent encounter (Primary Dx); Body mass index (BMI) 38.0-38.9, adultStart: 09-24-2023 End: 95-59-6921YmfuaaWobsiMacarena Yao MD Work Phone: [facility] Adult EndocrinologyComment on above: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Start: 09-08-2023 End: 22-74-8718DayoujVjuqsavvp M Cole MD Work Phone: [facility] Ear, Nose and ThroatComment on above:Chronic sinusitisStart: 08-31-2023 End: 13-98-1331Oudwnkxfk Result EncounterGeneric External Data ProviderNOMS External Department UnsolicitedStart: 08-31-2023 End: 63-58-6759Aknphydky Result EncounterGeneric External Data ProviderNOMS External Department UnsolicitedStart: 08-30-2023 End: 79-04-5983Xnenerrfp Result EncounterGeneric External Data ProviderNOMS External Department UnsolicitedStart: 08-30-2023 End: 21-62-4624Kapnrltjb Result EncounterGeneric External Data ProviderNOMS External Department UnsolicitedStart: 08-21-2023 End: 72-09-2557Vkszxmpgb Result EncounterGeneric External Data ProviderNOMS External Department UnsolicitedStart: 08-21-2023 End: 88-79-0816Cvgrotouz Result EncounterGeneric External Data ProviderNOMS External Department UnsolicitedStart: 08-07-2023 End: 11-07-2690XmmovxAeoo Hunter ASSEMBLING FABRICATOR-MISCELLANEOUS MACHINE OPERATOR Work Phone: [facility] Physicians Adult NeurologyStart: 07-24-2023 End: 33-76-4622MmvpryCkmz Hunter ASSEMBLING FABRICATOR-MISCELLANEOUS MACHINE OPERATOR Work Phone: [facility] Adult NeurologyStart: 07-05-2023 End: 02-49-2273Bdudmr outpatient visit 25 kathleenMarni Flowers APRN-MISCELLANEOUS MACHINE OPERATOR Work Phone: [facility] Physicians Adult NeurologyComment on above: Migraine without aura and without status migrainosus, not intractable (Primary Dx); 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; Word finding difficulty; Autonomic dysfunction; CervicalgiaStart: 07-05-2023 End: 58-35-1993mtkekitanhDVWMSidney & Lois [facility]sk[facility] Ambulatory PPGStart: 05-10-2023 End: 92-46-2181Jokuyhvxx Result EncounterGeneric External Data ProviderNOMS External Department UnsolicitedStart: 05-10-2023 End: 48-64-9884Xrvaudgui Result EncounterGeneric External Data ProviderNOMS External Department UnsolicitedStart: 05-08-2023 End: 23-83-5808Dlctww outpatient visit 15 minutesSarah Best ASSEMBLING FABRICATOR-MISCELLANEOUS MACHINE OPERATOR Work Phone: [facility] Adult EndocrinologyComment on above: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)Start: 05-08-2023 End: 22-42-9713volzhkoupcDDYRNN J [facility] Start: 05-09-1986Ccakco Elza Galicia MD Work Phone: [facility] CWM FMComment on above:Moderate persistent asthma without complication (CMS/HCC) (Primary Dx)Start: 42-83-0249Gzuyzt Leela Flowers ASSEMBLING FABRICATOR-MISCELLANEOUS MACHINE OPERATOR Work Phone: [facility] Adult NeurologyStart: 02-04-2023 YohanChriss Lionel ASSEMBLING FABRICATOR-MISCELLANEOUS MACHINE OPERATOR Work Phone: [facility] Adult NeurologyStart: 10-02-2022 End: 16-30-0070Ggfxir outpatient visit 15 minutesFeuntes Marinelli MD Work Phone: Hematology/OncologyComment on above:Qualitative platelet disorder (HCC) (Primary Dx); Bleeding disorder (HCC); Coagulopathy (HCC)Start: 09-05-2022 End: 10-93-8656Hpaccfi encounter procedureLORAINE RUBALCAVA [facility] start: 06-15-2022 End: 63-85-9130lzntuiuvjnJN CAS Guzman NADERERFacility:Q2Icbhi: 06-05-2022 End: 25-00-1651odbltxlypyVI DOCTOR MISCFacility:N0Whyxg: 49-08-6802Okgfqbhdd encounterMeena Grissom MD Work Phone: NeurologyComment on above:PAP Therapy Follow Up (DOWNLOAD)Start: 04-26-2022 End: 24-64-3597xwntmwxcmuSjymrchHenny Ramesh PA-C Work Phone: NeurologyComment on above:Migraine without aura and without status migrainosus, not intractable (Primary Dx)Start: 04-26-2022 End: 23-11-3405Fkykrydxofzf consultation with patientBhargavi Ramesh PA-C Work Phone: ccf [facility]Start: 04-17-2022 End: 01-83-5886Wpxxwkal Ally Marinelli MD Work Phone: Hematology/OncologyComment on above:Qualitative platelet disorder (HCC) (Primary Dx)Start: 48-07-5918Cfsknaaij encounterMeena Grissom MD Work Phone: NeurologyComment on above:PAP Therapy Follow Up (NOT COMPLIANT NEEDS SD CHIP SENT TO DME )Start: 04-03-2022 End: 60-92-2915Oimats outpatient visit 15 minutesFuentes Marinelli MD Work Phone: Hematology/OncologyComment on above:Qualitative platelet disorder (HCC) (Primary Dx); Bleeding disorder (HCC)Start: 03-29-2022 End: 83-10-1350lxbqiyltdbISODX ABHYANKARFacility:[facility] HospitalStart: 03-21-2022 Telephone encounterManda León RNHematology/OncologyComment on above:Orders; AppointmentStart: 03-16-2022 End: 86-05-0849xfiqspekjmWQCAU ABHYANKARFacility:[facility]Start: 02-28-2022 End: 12-75-3497Pmzgvvo encounter procedureLORAINE RUBALCAVA [facility] start: 21-55-8067Qzutnea UpdateMichael Antonette [facility] Home DeliveryComment on above:Patient Update (Medication Refill Consent)Start: 70-09-2321Gujofmdvt encounterBhargavi Ramesh PA-C Work Phone: NeurologyComment on above:Referral Request (PA for Ajovy)Start: 12-54-7095yangwypoemFsnkjJarrod Marinelli MD Work Phone: Hematology/OncologyComment on above:Platelet electrophoresis labStart: 39-71-3402Xfbmyfiav encounterManda León nremt/OncologyComment on above:Orders; QuestionStart: 02-17-2022 End: 77-52-9866Lrrcxvoxfa hospital visit by physicianCas Galicia MD Work Phone: mthz LaboratoryStart: 29-21-7638Jqinhxieg encounter Manda León RNHematology/OncologyComment on above:OrdersStart: 02-15-2022 End: 70-07-0259pmpayzllmnTPQTTP H FAWWADFacility:R0Skqrp: 02-13-2022 End: 91-03-4767Mvdcdrn encounter procedureMeena Grissom MD Work Phone: NeurologyComment on above:No-show for appointment (Primary Dx)Start: 02-13-2022 End: 18-30-2557Synseulqeiae consultation with Gabi Grissom MD Work Phone: ccf [facility]Start: 02-10-2022 End: 60-33-1029Ztswu (SP) OfficeFuentes Marinelli MD Work Phone: Hematology/OncologyComment on above:Qualitative platelet disorder (HCC) (Primary Dx); Bleeding disorder (HCC)Start: 41-58-6177Nyqmxiuka [facility] Main Work Phone: NeurologyComment on above:Appointment (Download Pap Therapy Follow Up-)Start: 01-23-2022 End: 86-36-1874Xkligeh encounter Toni WALTERS [facility] Start: 01-16-2022 End: 45-43-8176qssgqewhdlPrrjgxdHenny Ramesh PA-C Work Phone: NeurologyComment on above:Migraine without aura and without status migrainosus, not intractable (Primary Dx)Start: 01-16-2022 End: 55-55-1211Yzkrxrvftnqa consultation with Reyna Ramesh PA-C Work Phone: [facility] OUTPT CENTERStart: 12-24-2021 End: 85-48-0018hiuxmvehurVO BELÉN De Santiagocility:D6Kqigw: 2021 End: 09-61-0070Puhftnj encounter procedureLORAINE Dung RUBALCAVA [facility] start: 58-85-8847Czctnklbv encounterDayanna Sotomayor [facility] Work Phone: Genetic HealthcareComment on above:ResultsStart: 54-63-6440Akvmihigv for general adult medical examination without abnormal findingsDR CAS Morales [facility] Miamisburgtart: 92-55-4990Qocso [facility] Main Work Phone: NeurologyStart: 12-12-2021 End: 17-79-7165juqafapghhHW CAS BOLTONRFacility:J1Gaurg: 12-12-2021 End: 41-56-6942Mzlyjgndn for general adult medical examination without abnormal findingsDR CAS BOLTONRFacility:P7Gzvmk: 18-76-0558Dfrkon Lan Cabral PA-C Work Phone: pulmonary MedicineComment on above:Moderate persistent asthma without complication (Primary Dx); SOB (shortness of breath); Post-acute sequelae of COVID-19 (PASC)Start: 12-02-2021 End: 51-57-9471Tewkhmr encounter procedureSyncope Opd Nurse Work Phone: CardiologyComment on above:Palpitations (Primary Dx); Orthostatic intolerance; Symptomatic bradycardiaStart: 31-97-8464Qswboqcrp encounterMandjason Perez MD Work Phone: CardiologyComment on above:Patient UpdateStart: 74-74-0292neywqcnnauJkrgj Reddick RNCardiologyComment on above:TILT TABLE TEST INSTRUCTIONS - READ CAREFULLYStart: 32-11-8474I-mail encounter from caregiver Farzaneh Steward RNCCF [facility]Start: 11-18-2021 End: 57-60-9606Gbgpr (SP) Nick Marinelli MD Work Phone: Hematology/OncologyComment on above:Breast screening (Primary Dx); Qualitative platelet disorder (HCC)Start: 11-16-2021 End: 24-41-6095Ghgvggfpc encounterMeena Grissom MD Work Phone: NeurologyComment on above:Analytics Analyst - Other (Download)KATELIN on CPAP (Primary Dx); RLS (restless legs syndrome); Shift work sleep disorder; Sleep paralysis; 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; History of posttraumatic stress disorder (PTSD); Poor sleep pattern; Poor compliance with CPAP treatmentStart: 11-16-2021 End: 66-16-0640Uxburuqyewfn consultation with patientMeena Grissom MD Work Phone: cCF [facility]INStart: 90-38-6097Dgiywifcj encounterSMountain View Hospital Main Work Phone: NeurologyComment on above:Appointment (Download Pap Therapy Follow UP)Start: 11-14-2021 End: 33-48-0477vcclefpjuzZN BELÉN De Santiagocility:O8Oonwo: 11-10-2021 End: 21-12-8122Gzauahzd Ally Marinelli MD Work Phone: Hematology/OncologyComment on above:Breast screening (Primary Dx); Qualitative platelet disorder (HCC)Start: 20-37-8055vbqnuqdomnZbjousp Bhargava MD Work Phone: CardiologyComment on above:Cardiac testingNebulizer tubingStart: 11-03-2021 End: 99-28-7021Wwrxy (SP) Nick Marinelli MD Work Phone: Hematology/OncologyComment on above:Qualitative platelet disorder (HCC) (Primary Dx); Bleeding disorder (HCC)Genetic testingStart: 01-47-3342Vlypugjrt Ignacio Marinelli MD Work Phone: Hematology/OncologyComment on above:Lab OrdersStart: 10-24-2021 End: 67-48-1436guqjtejzcgDxlqo Kapil MD Work Phone: AllergyComment on above:Night sweats (Primary Dx); Lymphadenopathy; Rash and nonspecific skin eruption; Allergic rhinitis, unspecified seasonality, unspecified trigger; Moderate persistent asthma without complicationStart: 10-24-2021 End: 65-54-6615Vptllymphgck consultation with Magno Rushing MD Work Phone: REM [facility] MCStart: 10-20-2021 End: 23-53-4694nxpptvzosuLaqiaeg Bhargava MD Work Phone: CardiologyComment on above:Palpitations (Primary Dx); Symptomatic bradycardia; Orthostatic lightheadedness; Diffuse pain; Blood pressure instability; Decreased activity tolerance; Orthostatic intolerance; Moderate persistent asthma without complication; Physical deconditioningStart: 10-20-2021 End: 84-88-0243Gyvofxxjjdhv consultation with Darryn Perez MD Work Phone: ccf [facility]Start: 10-19-2021 End: 98-89-5224zpoybxvfmxEbzvsbgKhushi Ramesh PA-C Work Phone: NeurologyComment on above:Chronic migraine without aura, intractable, without status migrainosus (Primary Dx)Start: 10-19-2021 End: 01-89-7886Vknyzcsokwzd consultation with Reyna Ramesh PA-C Work Phone: ccf [facility]Start: 10-19-2021 End: 89-32-5839nvltvdkawgISRufus Herrcility:C8Pttmy: 10-14-2021 End: 11-85-4658azphuclcjfUbjqv Hasnie PSYD Work Phone: Neurological RestorationComment on above:Depression, unspecified depression type (Primary Dx); Anxiety; Abnormal involuntary movementStart: 10-14-2021 End: 44-09-9188Huddlrggnajy consultation with Funmilayo Gutierrezjanet REINIER Work Phone: ccf [facility]Start: 10-12-2021 End: 85-60-4401ftifuuhctbZctpfp Sapkota MD Work Phone: RheumatologyComment on above:Malaise and fatigue (Primary Dx); LymphadenopathyStart: 10-12-2021 End: 94-22-1339Thgzbmyjpjgx consultation with Zulay Villaseñor MD Work Phone: cCF [place] [facility]HCStart: 77-31-5041jqmshuqbrqBsxxj Timoteo ASSEMBLING FABRICATOR.MISCELLANEOUS MACHINE OPERATOR Work Phone: Pulmonary MedicineComment on above:Breast testing Start: 09-30-2021 End: 14-87-8722Qxjicsdglf hospital visit by physicianXr Chest Main K20Bsmutoztx Comment on above:History of COVID-19 [Z86.16]Start: 09-27-2021 End: 99-27-6714qebfrgrceuLmwj Pine Work Phone: Pulmonary LabComment on above:SpirometryStart: 09-27-2021 End: 34-33-2988Ayozdpl encounter procedurePulm Lab Pine Work Phone: CCV [place] [facility]HCStart: 62-21-9578ogbtekfcawPeder Timoteo ASSEMBLING FABRICATOR.MISCELLANEOUS MACHINE OPERATOR Work Phone: Pulmonary MedicineComment on above:Breathing test Start: 09-22-2021 End: 56-89-0357czfhmqmgtePaubt Timoteo ASSEMBLING FABRICATOR.MISCELLANEOUS MACHINE OPERATOR Work Phone: Pulmonary MedicineComment on above:Ct scan results Start: 70-45-3594Rjzkooxzc encounterRafaelson Timoteo ASSEMBLING FABRICATOR.MISCELLANEOUS MACHINE OPERATOR Work Phone: Pulmonary MedicineComment on above:ResultsStart: 09-21-2021 End: 06-40-3031Wimtvuw encounter Mil Villaseñor MD Work Phone: RheumatologyComment on above:Bone pain (Primary Dx); Malaise and fatigue; LymphadenopathyStart: 09-21-2021 End: 87-88-3326ajoimettxbVB CAS A NADERERFacility:I0Pghzi: 09-19-2021 End: 38-35-1757Bxmiikj encounter procedureLanden Mahmood APRN.CNP Work Phone: Pulmonary MedicineComment on above: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); History of COVID-19; SOB (shortness of breath); Chronic cough; Chest discomfort; Palpitation; CAVANAUGH (dyspnea on exertion); Dizziness; Near syncope; Night sweats; Orthopnea; Anxiety; Myalgia; Pain in joint, multiple sites; Mass of left axillaStart: 59-78-6721Vahgmimpw encounterLanden Mahmood APRN.CNP Work Phone: pulmonary MedicineComment on above:Analytics Analyst - OtherStart: 09-16-2021 End: 76-66-3111jpsawkwnewBgjtf Hasnie PSYD Work Phone: Neurological RestorationComment on above:Depression, unspecified depression type (Primary Dx); Anxiety; Abnormal involuntary movementStart: 09-16-2021 End: 44-86-9765Mebbffmctteo consultation with Funmilayo Valdes PSYD Work Phone: ccF [facility]Start: 09-05-2021 End: 28-52-6105Txqtqnzaw department patient visitChristine Abraham DO Work Phone: [facility] EDComment on above:Allergic reaction, initial encounter (Primary Dx)Start: 08-30-2021 End: 80-56-4228Alvcvzjn HealthRobsilvina Bright MD Work Phone: [facility] MedComment on above:Long COVID (Primary Dx); Diffuse pain; Decreased activity tolerance; PTSD (post-traumatic stress disorder)CT scan results sentStart: 08-23-2021 Telephone encounterEliarlene Umaña PA-C Work Phone: General SurgeryComment on above:Results - CtStart: 08-23-2021 End: 30-74-0755sdhowkimvpDjrcodxv Guzzo APRN.CNP Work Phone: NeurologyComment on above:Diffuse pain (Primary Dx); Decreased activity tolerance; Physical deconditioning; Orthostatic intoleranceStart: 08-23-2021 End: 92-83-5736Smmtlfwniobh consultation with Paz Knight APRN.CNP Work Phone: CCJ [facility]Start: 08-19-2021 End: 56-63-9785Lujzmapvtj hospital visit by [place] [address] RadiologyComment on above:Chronic RLQ pain [R10.31, G89.29]Start: 08-18-2021 ambulatoryGewojciech Zayas MD Work Phone: [facility]Start: 68-79-4124Jogxyxy encounter procedureMike Zayas MD Work Phone: ccf [facility]Start: 03-78-5848yspithktaj SAI BHARGAVAFacility:[facility] Hospitaltart: 08-17-2021 End: 48-37-5400Hvnemvxrfn hospital visit by [facility] Echocardiology TestingComment on above:Symptomatic bradycardia [R00.1]Start: 82-85-0294Mwqavr OnlyBerlin Avila MD Work Phone: RadiologyComment on above:Chronic RLQ pain (Primary Dx)Start: 27-79-1559Hsglseheb encounterJenni Rocha RN Work Phone: [facility] Home DeliveryComment on above: Insurance Authorization (Emgality 120MG/ML syringes (migraine))Start: 08-15-2021 End: 04-34-2514Vgzoxoy encounter Barbra Avila MD Work Phone: General SurgeryComment on above:Chronic RLQ pain (Primary Dx); Diastasis rectiStart: 08-12-2021 End: 06-75-0572nytygfleodItirlmehv Chae PT Work Phone: [facility] Walker Physical TherapyComment on above:Intractable chronic migraine without aura and without status migrainosus; Abnormal involuntary movementStart: 08-12-2021 End: 90-96-6324Kiwnuib encounter procedureMedical Telephone Interviewer Work Phone: [facility] HospitalComment on above:White coat syndrome with hypertension (Primary Dx)Start: 08-05-2021 End: 26-72-5112rvcngavbbvWkgyefi Grenfell PA-C Work Phone: NeurologyComment on above:Chronic migraine without aura, intractable, without status migrainosus (Primary Dx)Start: 08-05-2021 End: 28-79-0397Defhswxqbysu consultation with Reyna Ramesh PA-C Work Phone: ccf [facility]Start: 08-03-2021 End: 52-76-8099kospukrmnvEE RUBENS TIM .Facility:Z5Ugdeu: 07-29-2021 End: 94-57-6648vvvbqvbhxtXpvkc Hasnie PSYD Work Phone: Neurological RestorationComment on above:Depression, unspecified depression type (Primary Dx); Anxiety; Intractable chronic migraine without aura and without status migrainosus; Abnormal involuntary movementStart: 07-29-2021 End: 36-08-5449Hmmagcheujac consultation with Funmilayo Valdes PSYD Work Phone: ccf [facility]Start: 07-25-2021 End: 00-30-4482Pesipku encounter procedureHenny Rushing MD Work Phone: AllergyComment on above:Angioedema, initial encounter (Primary Dx); Urticaria; Hoarseness of voice; Allergic rhinitis, unspecified seasonality, unspecified trigger; Adverse effect of drug, initial encounter; Allergic reaction to contrast material, initial encounter; Adverse food reaction, initial encounter; Moderate persistent asthma without complication; Gastroesophageal reflux disease, unspecified whether esophagitis presentStart: 07-22-2021 End: 39-23-9635Roywk (SP) Bryant Bass MD Work Phone: Hematology/OncologyComment on above:Qualitative platelet disorder (HCC) (Primary Dx); Bleeding disorder (HCC)Start: 07-21-2021 End: 91-32-1559Wrsgpcb encounter procedureSai Perez MD Work Phone: CardiologyComment on above:History of COVID-19 (Primary Dx); Symptomatic bradycardia; Blood pressure instabilityStart: 07-18-2021 End: 93-35-9860Qtvfmjq encounter procedureLab Dipakedinson Matthew Work Phone: Laboratory MedicineComment on above:Screening for endocrine disorderStart: 07-15-2021 End: 74-33-9718Ekamjoyn [facility] Work Phone: Genetic HealthcareComment on above:Bleeding disorder (HCC) (Primary Dx); Coagulopathy (HCC); Qualitative platelet disorder (HCC)Start: 07-14-2021 End: 54-77-8523Uibxcvb encounter procedureAldo Ann MD Work Phone: OtolaryngologyComment on above:Allergy, initial encounter (Primary Dx); HeadachesStart: 07-06-2021 End: 04-74-3598Uykiwfa encounter procedureTracee Mcintyre MD Work Phone: Neurological RestorationComment on above:Intractable chronic migraine without aura and without status migrainosus (Primary Dx); Abnormal involuntary movementStart: 74-82-2014Qabyojcqf encounterJackelyn Marques MD Work Phone: EndocrinologyComment on above:OrdersStart: 07-01-2021 End: 22-49-4438Wbfww (SP) Bryant Bass MD Work Phone: Hematology/OncologyComment on above:Coagulopathy (HCC) (Primary Dx); Qualitative platelet disorder (HCC)Screening for endocrine disorder; Muscle spasms of lower extremity, unspecified laterality; AkathisiaStart: 06-27-2021 End: 30-14-9863Gikymyr encounter procedurePeter Knight APRN.CNP Work Phone: NeurologyComment on above:Worsening headaches (Primary Dx); Maxillary sinus cyst; Muscle spasms of lower extremity, unspecified laterality; Akathisia; Blurred vision; ChoreaStart: 06-24-2021 End: 39-09-3061knlubdtctjSD JEFFREY PAY .Facility:O7Ymzyw: 13-73-7995zcpjrrqrad Peter Knight APRN.MISCELLANEOUS MACHINE OPERATOR Work Phone: NeurologyComment on above:LegsStart: 06-20-2021 End: 26-04-0311Czmvhpwbg department patient visitJulouann Moses DO Work Phone: [facility] EDComment on above:Spasm of muscle (Primary Dx); Acute nonspecific chest pain with low risk of coronary artery diseaseStart: 81-32-5567Lrprnxwvl encounterSdeni Bass MD Work Phone: Hematology/OncologyComment on above:ResultsStart: 14-55-8969hvsczuvmwsAMHZUTQG GUZZacility:[facility] HospitalStart: 06-14-2021 Telephone encounterJackelyn Marques MD Work Phone: EndocrinologyComment on above:OrdersStart: 06-14-2021 End: 90-54-4692Bjimztz encounter procedureJackelyn Marques MD Work Phone: EndocrinologyComment on above:Screening for endocrine disorder (Primary Dx); Primary hypothyroidismStart: 06-14-2021 End: 25-91-1496yoeqkkhkosSeofganaz MainNeurologyComment on above:Assessment Start: 06-14-2021 End: 97-25-0875Rmyjxkj encounter procedureAutonomic 2 Neur MainCCF [facility]INStart: 52-45-2869rvugofnenrTknnlwjoElliot Knight APRN.MISCELLANEOUS MACHINE OPERATOR Work Phone: NeurologyComment on above:Blood resultsStart: 06-10-2021 End: 33-19-3611wdffovxstdFreyblynv Kunte MD Work Phone: Hematology/OncologyComment on above:Coagulopathy (HCC) (Primary Dx)Start: 06-10-2021 End: 34-82-7627Enilaom encounter procedureSdeni Bass MD Work Phone: SANDUSKYStart: 19-95-8588Wfutl abstractingSdeni Bass MD Work Phone: Hematology/OncologyStart: 06-04-2021 End: 19-92-4590Cluwnvgda department patient visitBrian Santana MD Work Phone: [facility] EDComment on above:Urticaria (Primary Dx); Moderate persistent asthma with exacerbationStart: 92-25-0790Punfuwyan encounter Peter Knight APRN.CNP Work Phone: NeurologyComment on above:Received Outside Medical Records ([facility])Start: 05-20-2021 End: 85-11-2301Mxcysnebr department patient visitCas Galicia MD Work Phone: [facility] EDComment on above:Chest pain, unspecified type (Primary Dx); Abdominal pain, acute, right lower quadrantStart: 04-16-2021 End: 98-37-4469Okxwhjtpw department patient visitSean [facility] EDComment on above:Intractable nausea and vomiting (Primary Dx); Hydrosalpinx; Left ovarian cystStart: 03-07-2021 End: 74-96-0294zkzzpzdgukFLONCleveland Clinic Euclid Hospitaltart: 03-06-2021 End: 63-20-5473qwkylfcnaeARIVMercy Hospital Start: 11-01-2020 End: 18-94-8372Cyridbhmg department patient visitAraseli Barrett MD Work Phone: [facility] EDComment on above:COVID-19 (Primary Dx)Start: 06-13-2020 End: 03-74-2203Ljgxdnoyy department patient visitScindi Cm MD Work Phone: [facility] EDComment on above:Strain of lumbar region, initial encounter (Primary Dx) Procedures DateProcedureProcedure DetailPerforming ClinicianStart: 94-40-7827UNZ DHEA SULFATERanulfojose Gonzalez EXTERIOR DOOR INSTALLER Work Phone: Start: 86-80-5549XWU ESTRONE(E1)Priscila Carlos EXTERIOR DOOR INSTALLER Work Phone: Start: 46-35-4994PPX PROGESTERONEPriscila Carlos EXTERIOR DOOR INSTALLER Work Phone: Start: 19-42-1048YGRZUJ TESTOSTERONE FREE/TOT EQUILIB Priscila Farrerly EXTERIOR DOOR INSTALLER Work Phone: Start: 78-63-5172Hbrwdb-up visitFollow-upAKILA YAOStart: 48-61-7231QKJ CBC W AUTO DIFF BLDGeneric External Data Provider Start: 09-29-2024 End: 35-79-3648Xkzmc forearm 2 viewsCas Galicia MD Work Phone: Start: 17-97-9074Zduei X-ray of right forearmCas Galicia MD Work Phone: Start: 32-75-8870Lvwt tthrc r-t 2d w/wom-mode compl spec&colr dBeverly Karveenan ASSEMBLING FABRICATOR - MISCELLANEOUS MACHINE OPERATOR Work Phone: Start: 74-08-8277ZXA CBC WITH AUTO DIFFLisac Grayson PEREZ Work Phone: Start: 84-58-8923JFQ DHEA SULFATECorey Glenroy DO Work Phone: Start: 67-35-0001WFKPZI TESTOSTERONE FREE/TOT EQUILIB Rubens Glenroy DO Work Phone: Start: 35-72-8011XRTIZYZSG W/COMP RFLX AREA 5Generic External Data ProviderStart: 02-41-4212LLNPF CULTURE 2Generic External Data ProviderStart: 40-22-4055CJFBO CULTURE 1Generic External Data ProviderStart: 42-53-8264LLD HEMOGLOBIN E2YYbodCas Galicia MD Work Phone: Start: 78-09-5264Xyzxgzxi rubellaRadonis Fraser ASSEMBLING FABRICATOR [facility] Work Phone: Start: 05-91-3559LXFO RUBELLA AB, IGGGeneric External Data ProviderStart: 08-29-5392Asvojmezf rspse spmtry pre&post-brncdilat admn Nabor Megan Yancey [facility] Work Phone: Start: 33-47-8840SD PELVIS W/ TRANSVAGINALGeneric External Data ProviderStart: 40-66-8647UQF THYROXINE (T4) FREEGeneric External Data ProviderStart: 81-36-6390BDM,APTIMA HPV,AGE GDLNCorey Glenroy DO Work Phone: Start: 24-51-3339NQ ABDOMEN/PELVIS WO CONTGeneric External Data ProviderStart: 58-52-1441UUW CBC W AUTO DIFF BLDGeneric External Data ProviderStart: 66-55-6664YL TOMOSYNTHESIS DIAGNOSTIC BIGeneric External Data ProviderStart: 37-21-4105BQ BREAST BI LIMITEDGeneric External Data Provider Start: 89-28-7480CgfmaepipikGmutrip ProviderStart: 32-36-9436VC PELVIS W/ TRANSVAGINALGeneric External Data ProviderStart: 80-81-6714ZX RENAL BIGeneric External Data ProviderStart: 55-25-7192Ci soft tissue head & neck real time imge docmGeneric External Data ProviderStart: 55-64-8494Ygjjko-up visitFollow-up SARAH BESTStart: 20-26-5402MmzummbcacccunahqzzqevhosyCwrwqs Дмитрий Start: 95-63-2150Ewbjm depression screening assessment Marni Lionel [facility] Work Phone: Start: 06-23-9584Akmvfzubgj glycosylated q8jQjta Grayson PEREZ Work Phone: Start: 48-89-5982Gfylx of free thyroxineAkila Yao MD Work Phone: start: 73-41-4666Dxazgprnvmlvfdqnn with dilation of urethral strictureLORAINE RUBALCAVA Start: 19-48-3489Qlcps depression screening assessment Judith Valdes PSYD Work Phone: Start: 99-32-0933Ggkcs depression screening assessment Ruth Villaseñor MD Work Phone: Start: 49-52-9087Wntxsomqqc exam chest 2 viewsJason Timoteo ASSEMBLING FABRICATOR.[facility] Work Phone: Start: 09-27-2021 End: 41-23-2972Qh diffusing capacityJason Timoteo ASSEMBLING FABRICATOR.[facility] Work Phone: Start: 49-29-3509Ygbuu depression screening assessment Judith Valdes PSYD Work Phone: Start: 94-27-2775Fa pelvic nonobstetric image dcmtn limited/f/Cody Avila MD Work Phone: Start: 06-07-5157Fhco tthrc r-t 2d w/wom-mode compl spec&colr dTodd Jaky Santos MD Work Phone: Start: 00-42-8965WSZE Ahmet Perez MD Work Phone: Start: 43-70-3772Carqs depression screening assessment [facility] Work Phone: Start: 28-34-3376Ierzvpftaxjrroqqiae hormone acth Jackelyn Marques MD Work Phone: Start: 05-13-9757Odpioehenkcmfvzovfe hormone acth Jackelyn Marques MD Work Phone: Start: 59-11-9781Edvkc depression screening assessment Yan Bass MD Work Phone: Start: 64-29-6482Xgkoopwheg exam chest single view Sean Moses DO Work Phone: Start: 79-05-1388Zbccs metabolic panel calcium total Sean Moses DO Work Phone: Start: 84-63-8473Bps routine ecg w/least 12 lds w/i&r Sean Moses DO Work Phone: Start: 48-83-5936Nlrsv depression screening assessment Peter Knight APRN.MISCELLANEOUS MACHINE OPERATOR Work Phone: Start: 09-49-1125TSLAIMAABXD CARE EVALUATION ONLY Brian Santana MD Work Phone: Start: 49-10-6033Kihvx of troponin quantitative Shanna Dario Evelyn ASSEMBLING FABRICATOR - MISCELLANEOUS MACHINE OPERATOR Work Phone: Start: 39-49-7961Sa abdomen & pelvis w/o contrast materialMargaret Dario Rivas ASSEMBLING FABRICATOR - MISCELLANEOUS MACHINE OPERATOR Work Phone: Start: 75-17-2389Nydd screen class list aMargaret Dario Rivas ASSEMBLING FABRICATOR - MISCELLANEOUS MACHINE OPERATOR Work Phone: Start: 63-42-2615Emquefuisg microscopic onlyLisagarAshely Rivas ASSEMBLING FABRICATOR - MISCELLANEOUS MACHINE OPERATOR Work Phone: Start: 54-33-8156Llmkm dip stick/tablet rgnt auto w/o microscopyMargaret Dario Rivas ASSEMBLING FABRICATOR - MISCELLANEOUS MACHINE OPERATOR Work Phone: Start: 76-83-5391Pkdlsxhcjd exam chest single view Shanna Dario Evelyn ASSEMBLING FABRICATOR - MISCELLANEOUS MACHINE OPERATOR Work Phone: Start: 12-66-3232Iozly of lactateMargaret Dario Rivas ASSEMBLING FABRICATOR - MISCELLANEOUS MACHINE OPERATOR Work Phone: Start: 70-48-9613INHTJ METABOLIC PANEL W/ REFLEX TO MG FOR LOW KMargaret C Evelyn ASSEMBLING FABRICATOR - MISCELLANEOUS MACHINE OPERATOR Work Phone: Start: 48-28-5290L-reactive proteinMargaret C Evelyn ASSEMBLING FABRICATOR - MISCELLANEOUS MACHINE OPERATOR Work Phone: Start: 05-22-3346Yzs routine ecg w/least 12 lds w/i&r Araseli Barrett MD Work Phone: start: 86-25-1066Cljxv depression screening assessment Peter Knight APRN.MISCELLANEOUS MACHINE OPERATOR Work Phone: Start: 66-28-9072Lp abdomen & pelvis w/o contrast materialMarottonielet Dario Evelyn ASSEMBLING FABRICATOR - [facility] Work Phone: Start: 06-20-8005Gmsmntemau exam chest single view Shanna Bishop Evelyn ASSEMBLING FABRICATOR - [facility] Work Phone: Start: 21-33-4313Wez routine ecg w/least 12 lds w/i&r Shanna Bishop Evelyn ASSEMBLING FABRICATOR - [facility] Work Phone: Start: 29-14-8352Fjdoeknwwv microscopic onlyJsoéet Dario Evelyn ASSEMBLING FABRICATOR - [facility] Work Phone: Start: 45-86-7945Dswxi test visual color cmprsn methsMargaret C Evelyn ASSEMBLING FABRICATOR - [facility] Work Phone: Start: 08-12-6915Jpiqn of lipaseMarottonielet Dario Evelyn ASSEMBLING FABRICATOR - [facility] Work Phone: Start: 83-90-6412UMRJE METABOLIC PANEL W/ REFLEX TO MG FOR LOW KMargaret C Evelyn ASSEMBLING FABRICATOR - [facility] Work Phone: Start: 09-81-5073Ktbkelb function panelShanna Bishop Evelyn ASSEMBLING FABRICATOR - [facility] Work Phone: Start: 02-10-2021H/O: hysterectomyHistory of hysterectomyLisa Grayson PEREZ Work Phone: Start: 02-34-7115Ibs routine ecg w/least 12 lds w/i&r Araseli Barrett MD Work Phone: start: 74-14-7653Nobau of magnesiumAraseli Barrett MD Work Phone: start: 94-33-1989RYHXP METABOLIC PANEL W/ REFLEX TO MG FOR LOW KMelicorrina Barrett MD Work Phone: start: 70-83-0267Hmarwoikfo exam chest single view Araseli Barrett MD Work Phone: start: 11-46-4197Krnfwcyan tube excisionJENNIFER TEJ Start: 94-60-2565Voebkpwmqish cholecystostomyJENNIFER TEJ AppendectomyJENNIFER TEJ Cesarean sectionJENNIFER TEJ ColonoscopyAurora Orzech Endometrial ablationAurora Orzech EsophagogastroduodenoscopyAurora Orzech H/O: hysterectomyStatus post hysterectomyJaimee Sonam ASSEMBLING FABRICATOR.MISCELLANEOUS MACHINE OPERATOR Work Phone: Insertion of cardiac monitoring implant using fluoroscopic guidanceAurora Orzech Laparoscopic lysis of adhesionsAurora Orzech Ligation of fallopian tubeJENNIFER TEJ Nasal septoplastyJENNIFER TEJ TympanostomyJENNIFER TEJ Plan of Treatment DateCare ActivityDetailAuthorStart: 36-73-9265Devotpuz screeningDiabetes: Retinopathy ScreeningNOMS HealthcareStart: 12-07-2025 End: 81-45-8026Hsorrkv encounter dtkoiswbv10/02/2026 2:00 PM EST Procedure Visit NOMDominick PERALTA [address] [place] [address] Rubens Tim DO [address] [place] [address] NIRAJ ALLISONtart: 63-49-7969Igzll BMI ScreeningAdult BMI ScreeningProMercy Health West Hospitalca [facility] SystemStart: 39-54-9668Yyrxpod ScreeningTobacco ScreeningProMercy Health West Hospitalca [facility] SystemStart: 11-24-2025 End: 32-69-4411Wurzhfv encounter zeqbwnwah51/20/2026 10:00 AM EDT Office Visit [facility] Adult Endocrinology, A Department of [facility] [address] [address] Akila Yao MD [address] [address] [facility] Adult Endocrinology, A Department of [facility] Start: 92-08-3887Qxasx BMI ScreeningAdult BMI ScreeningMarietta Memorial Hospital Start: 61-96-2400Rtqvtpl ScreeningTobacco ScreeningFormerly [facility] Caretart: 09-29-2025 End: 56-22-2877Zaxwlz-up gjipurchl97/25/2026 9:30 AM EDT Visit (SP) Office Hematology/Oncology [address] [place], [place] [phone] Margot Limon APRN.MISCELLANEOUS MACHINE OPERATOR [address] [place] [address] 1 year follow upHematology/OncologyComment on above:1 year follow upStart: 09-29-2025 End: 84-84-5201Afmhcdm encounter mbkyduqka20/25/2026 9:15 AM EDT Office Visit [facility] [address] [place] [address] 1 year follow upNortMcLaren Caro Region LaboratoryComment on above:1 year follow upStart: 07-08-2025 End: 49-12-7072Jnatqwg encounter procedureNOMS TSR DERMStart: 02-11-2025 End: 75-62-9238Khibfyk encounter kjglacfgx57/07/2026 9:00 AM EST Office Visit [facility] [address] [place] [address] Cas Galicia MD [address] [place] [address] [facility] FMStart: 01-27-2025 End: 55-21-0653Tswpowt encounter alkmdognz51/23/2025 4:15 PM EST Office Visit [facility] - [address] [place] [address] Terri Han MD [address] [facility] [address] [place] [address] [phone] (Work) [facility]Start: 01-05-2025 End: 51-23-0596Nyykxlbr Rsspfgo8901/05/2025 12:30 PM EST Clinical Support [facility] - [address] [place] [address] Argentina Trivedi, CCC-MELT SUPERINTENDANT [address] [place] [address] [address] [place] [address] [facility] [place] CityStart: 72-95-4982Yjdyv BMI ScreeningAdult BMI ScreeningUK Healthcare SystemStart: 93-63-0466Ivgqrmc ScreeningTobacco ScreeningFormerly [facility] Caretart: 12-26-2024 End: 61-17-8953Zackffe encounter lnycusinb71/21/2025 10:30 AM EST Office Visit [facility] Neurology, A [facility] [phone] Marni Flowers, ASSEMBLING FABRICATOR-MISCELLANEOUS MACHINE OPERATOR [address] [phone] [facility] Neurology, A Department of [facility] Start: 12-01-2024 End: 98-01-4296DUFZCRJP Lab Routine Postmenopausal HRT (hormone replacement therapy) Hormone disorder Expected: 12/01/2024 (Approximate), Expires: 12/01/2025NOMS HealthcareComment on above:Expected: 12/01/2024 (Approximate), Expires: 12/01/2025Start: 12-01-2024 End: 72-46-4210SY Breast - bilateral ScreeningBilateral screening mammogram Imaging Routine Encounter for screening mammogram for malignant neoplasm of breast Expected: 12/01/2024 (Approximate), Expires: 01/31/2026[facility] Work Phone: comment on above:Expected: 12/01/2024 (Approximate), Expires: 01/31/2026Start: 12-01-2024 End: 63-18-0821Vdvapup encounter procedureNOKINDRED HOSPITAL OBStart: 11-27-2024 End: 79-42-5729Arjdifa encounter ztvcoarvj19/23/2025 10:00 AM EDT Office Visit [facility] [address] [place] [phone] Rubens Tim, DO [address] [place] [address] [facility] OBStart: 11-24-2024 End: 32-38-3545Ghlalzu encounter procedureProMedica Adult Endocrinology, A [facility]ertart: 03-22-8998Jxuia BMI ScreeningAdult BMI ScreeningUK Healthcare SystemStart: 55-56-7718Xjspuwz ScreeningTobacco ScreeningProCorey Hospitaltart: 10-28-2024 End: 30-48-8135OQ Sinuses WO contrastCT sinuses without contrast Imaging Routine Chronic sinusitis Expected: 10/28/2024, Expires: 10/28/2025ProRegency [facility] SystemComment on above:Expected: 10/28/2024, Expires: 10/28/2025Start: 83-37-6844Vrnqnrlbo vaccinationResearch Medical Center-Brookside CampusStart: 09-30-2024 End: 05-41-9540DTS W Auto Differential panel - BloodCOMPLETE BLOOD COUNT AND DIFFERENTIAL Lab Routine Qualitative platelet disorder (HCC) Expected: 09/06 (Approximate), Expires: 09/30/2024[facility] Work Phone: Comment on above:Expected: 09/30/2024 (Approximate), Expires: 09/30/2024Start: 09-30-2024 End: 21-12-4959Rhfqfcyphzebl metabolic 2000 panel - Serum or PlasmaCOMPREHENSIVE METABOLIC PANEL Lab Routine Qualitative platelet disorder (HCC) Expected: 09/30/2024 (Approximate), Expires: 09/30/2024leveland ClinicComment on above: Expected: 09/30/2024 (Approximate), Expires: 09/30/2024Start: 09-29-2024 End: 89-52-0114Daiyfp-up ekpwajwvg72/25/2025 9:45 AM EDT Visit (SP) Office Hematology/Oncology [address] [place], [place] [phone] Fuentes Marinelli MD [address] [place] [address] 1 year follow upHematology/OncologyComment on above:1 year follow upStart: 09-29-2024 End: 40-25-1240Atepaxd encounter wprykkacu98/25/2025 9:30 AM EDT Office Visit [facility] [address] [place], [place] [address] [address] 1 year follow upNortMcLaren Caro Region LaboratoryComment on above:1 year follow upStart: 09-25-2024 End: 07-81-8774Wrqffsy encounter ivhfulbby02/21/2025 3:45 PM EDT Office Visit [facility] [address] [place] [address] Cas Galicia MD [address] [place] [address] ArrivedNOMS CWM FMComment on above:ArrivedStart: 09-25-2024 End: 34-41-5170LF Elbow - right 2 ViewsXR elbow 1 or 2 views right Imaging Routine Right forearm pain Expected: 09/25/2024, Expires: 09/25/2025[facility] HealthcareComment on above:Expected: 09/25/2024, Expires: 09/25/2025Start: 09-25-2024 End: 00-68-7915AQ Radius and Ulna - right 2 ViewsXR forearm 2 views right Imaging Routine Right forearm pain Expected: 09/25/2024, Expires: 09/25/2025NODC HealthcareComment on above:Expected: 09/25/2024, Expires: 09/25/2025Start: 09-25-2024 End: 32-58-2636JJ Wrist - right 2 ViewsXR wrist 1 or 2 views right Imaging Routine Right wrist pain Expected: 09/25/2024, Expires: 09/25/2025[facility] Work Phone: Comment on above:Expected: 09/25/2024, Expires: 09/25/2025Start: 09-18-2024 End: 97-97-1716Dyeylyy encounter plppgsukc26/14/2025 12:45 PM EDT Office Visit [facility] Part of [place] [phone] Nabor Yancey, ASSEMBLING FABRICATOR - MISCELLANEOUS MACHINE OPERATOR [address] [place] [address] 3 month follow up; Asthma, KATELIN/Silvia; [facility] CenterComment on above:3 month follow up; Asthma, KATELIN/Silvia; labsStart: 09-78-7796Sfycexwof vaccinationFlu vaccine (#1)Hong Dang [facility] InstituteStart: 85-74-5698Lpgeoorsp for malignant neoplasm of breastMammogramNODC Healthcare Start: 08-11-2024 End: 40-95-4028HYD W Auto Differential panel - BloodCBC and differential Lab Routine Annual physical exam Expected: 08/11/2024 (Approximate), Expires: 0 08/11/2025NODC HealthcareComment on above:Expected: 08/11/2024 (Approximate), Expires: 08/11/2025Start: 08-11-2024 End: 23-21-4403Mdjzfzxturzjl metabolic 2000 panel - Serum or PlasmaComprehensive metabolic panel Lab Routine Annual physical exam Expected: 08/11/2024 (Approximate), Expires: 08/11/2025[facility] HealthcareComment on above:Expected: 08/11/2024 (Approximate), Expires: 08/11/2025Start: 08-11-2024 End: 42-49-0950Xqpkblptqs A1c/Hemoglobin.total in BloodHemoglobin A1c Lab Routine Annual physical exam Expected: 08/11/2024 (Approximate), Expires: 08/11/2025[facility] HealthcareComment on above:Expected: 08/11/2024 (Approximate), Expires: 08/11/2025Start: 08-11-2024 End: 48-45-7363Wiqgt 1996 panel - Serum or PlasmaLipid panel Lab Routine Annual physical exam Expected: 08/11/2024 (Approximate), Expires: 08/11/2025[facility] HealthcareComment on above:Expected: 08/11/2024 (Approximate), Expires: 08/11/2025Start: 08-11-2024 End: 26-92-5775Ssctonvqqmtd/Creatinine panel in random UrineMicroalbumin / creatinine, urine ratio Lab Routine Type 2 diabetes mellitus with hyperglycemia, without long-term current use of insulin (HCC) Expected: 08/11/2024 (Approximate), Expires: 08/11/2025[facility] Work Phone: Comment on above:Expected: 08/11/2024 (Approximate), Expires: 08/11/2025Start: 08-11-2024 End: 32-93-6490Ngcruwqxfyr [Units/volume] in Serum or PlasmaTSH Lab Routine Annual physical exam Expected: 08/11/2024 (Approximate), Expires: 08/11/2025[facility] HealthcareComment on above:Expected: 08/11/2024 (Approximate), Expires: 08/11/2025Start: 08-11-2024 End: 38-51-6475Dnsogjxiw (T4) free [Mass/volume] in Serum or PlasmaT4, free Lab Routine Primary hypothyroidism Expected: 08/11/2024 (Approximate), Expires: 08/11/2025[facility] HealthcareComment on above:Expected: 08/11/2024 (Approximate), Expires: 08/11/2025Start: 08-11-2024 End: 52-41-3820Wiolvyr encounter procedureNOMS CWM FMComment on above:Arrived Start: 07-08-2024 End: 11-86-5549Svxndsp encounter procedureNOMS TSR DERMComment on above:Arrived Start: 83-31-9498Cdlhefc ScreeningTobacco ScreeningUK Healthcare SystemStart: 07-01-2024 End: 65-43-9330Iivcoxkyrdsa consultation with patientProMedica Physicians Adult NeurologyStart: 91-56-0340Vbkqj BMI ScreeningAdult BMI ScreeningUK Healthcare SystemStart: 77-05-3156Apznakq ScreeningTobacco ScreeningFormerly [facility] Caretart: 04-17-2024 End: 77-30-3098Adtnacj encounter mfczadiyx30/13/2025 8:30 AM EDT Office Visit [facility] Part [address] [address] David Mai MD [address] [place] [address] 6 mth f/[facility] Part [facility] HospitalComment on above:6 mth f/uStart: 66-23-8162Jzuax screening for proteinDiabetes: Urine Protein ScreeningNODC HealthcareStart: 02-27-2024 End: 69-14-4364Lgtjqdb encounter oxtadrrtb69/22/2025 8:15 AM EST Office Visit [facility] [address] [place] [address] Cas Galicia MD [address] [place] [phone] ArrivedNOMS CWM FMComment on above:ArrivedStart: 28-14-8516Ieaespyqgd A1c measurementDiabetes: Hemoglobin Q5KEOEN HealthcareStart: 02-11-2024 End: 30-44-9618Yofqhnawub A1c/Hemoglobin.total in BloodHemoglobin A1c Lab Routine Type 2 diabetes mellitus with hyperglycemia, without long-term current use of insulin ([facility]) Expected: 02/11/2024 (Approximate), Expires: 02/10/2025 [facility] Work Phone: Comment on above:Expected: 02/11/2024 (Approximate), Expires: 02/10/2025Start: 01-14-2024 End: 18-95-1027Qeawcto encounter qsylvaqrx72/09/2024 9:40 AM EST Office Visit [facility] [address] [place] [address] Christy Painting MD [address] [place] [address] [facility] ALLStart: 01-09-2024 End: 93-44-3591Cusarbu encounter goxtthigu38/04/2024 8:45 AM EST Office Visit [facility] [address] [place] [address] Cas Galicia MD [address] [place] [address] [facility] FMStart: 76-80-6094Uaxji BMI ScreeningAdult BMI ScreeningProMercy Health West Hospitalca Health SystemStart: 81-30-3647Zzsapilvth ScreeningDepression ScreeningProMercy Health West Hospitalca Health SystemStart: 03-49-7181Wpphtsw ScreeningTobacco ScreeningProMercy Health West Hospitalca Health SystemStart: 01-02-2024 End: 18-09-2967Vidgztn encounter movqdepyp86/27/2024 10:30 AM EST Office Visit [facility] [address] [place] [address] Marni Flowers APRN-MISCELLANEOUS MACHINE OPERATOR [address] [place] [address] [facility] NeurologyStart: 60-84-3217Ujagahosj for malignant neoplasm of breastBon [facility] OhioStart: 81-03-0357XQJ test (Diabetes, CKD 3-4, OR last GFR 15-59)GFR test (Diabetes, CKD 3-4, OR last GFR 15-59)Bon [facility]Start: 96-80-3865Dminb screening for proteinDiabetes: Urine Protein ScreeningLIFEPOINT HOSPITALS HealthcareStart: 11-22-2023 End: 49-48-0879Lkesito encounter yxbmfyfjf96/17/2024 8:45 AM EDT Office Visit [facility] [address] [facility] [place] [address] Akila Yao MD [address] [facility] [address] [place] [address] [facility] Adult EndocrinologyStart: 11-20-2023 End: 91-44-6498Xywdrtrn freeCortisol, free Lab Routine PCOS (polycystic ovarian syndrome) Hormone disorder Expected: 11/20/2023, Expires: 11/19/2024[facility] HealthcareComment on above:Expected: 11/20/2023, Expires: 11/19/2024Start: 11-20-2023 End: 64-00-2277MEVYMOFB Lab Routine PCOS (polycystic ovarian syndrome) Hormone disorder Expected: 11/20/2023, Expires:11/19/2024DC HealthcareComment on above:Expected: 11/20/2023, Expires: 11/19/2024Start: 11-20-2023 End: 76-31-6160VILW-sulfateDHEA-sulfate Lab Routine PCOS (polycystic ovarian syndrome) Hormone disorder Expected: 11/20/2023 (Approximate), Expires: 11/19/2024[facility] HealthcareComment on above:Expected: 11/20/2023 (Approximate), Expires: 11/19/2024Start: 11-20-2023 End: 65-23-2612WfjbepsylVzgkpblzx Lab Routine PCOS (polycystic ovarian syndrome) Hormone disorder Expected: 11/20/2023 (Approximate), Expires: 11/19/2024DC HealthcareComment on above:Expected: 11/20/2023 (Approximate), Expires: 11/19/2024Start: 11-20-2023 End: 02-70-7795Kotmhsjvrwmgp Lab TestMiscellaneous Lab Test Lab Routine PCOS (polycystic ovarian syndrome) Hormone disorder Expected: 11/20/2023 (Approximate), Expires: 11/19/2024 HealthcareComment on above:Expected: 11/20/2023 (Approximate), Expires: 11/19/2024Start: 11-20-2023 End: 15-85-2206MlrsjjpjqtisEtixryoaklvr Lab Routine PCOS (polycystic ovarian syndrome) Hormone disorder Expected: 11/20/2023 (Approximate), Expires: 11/19/2024 HealthcareComment on above:Expected: 11/20/2023 (Approximate), Expires: 11/19/2024Start: 11-20-2023 End: 95-13-0583UCYMDRTYIHOB, FREETESTOSTERONE, FREE Lab Routine PCOS (polycystic ovarian syndrome) Hormone disorder Expected: 11/20/2023 (Approximate), Expires: 11/19/2024 HealthcareComment on above:Expected: 11/20/2023 (Approximate), Expires: 11/19/2024Start: 11-20-2023 End: 65-17-1941Kogaepchzdyl, free, totalTestosterone, free, total Lab Routine PCOS (polycystic ovarian syndrome) Hormone disorder Expected:11/20/2023 (Approximate), Expires: 11/19/2024 HealthcareComment on above:Expected: 11/20/2023 (Approximate), Expires: 11/19/2024Start: 11-20-2023 End: 57-52-5527OZ for pregnancyUS PELVIS-TRANSVAG IF INDICATED Imaging Routine PCOS (polycystic ovarian syndrome) Hormone disorderExpected: 11/20/2023 (Approximate), Expires: 11/19/2024 HealthcareComment on above:Expected: 11/20/2023 (Approximate), Expires: 11/19/2024Start: 11-20-2023 End: 93-69-3490Nojwzrx encounter procedureNOMS BCP OBComment on above:Arrived Start: 11-19-2023 End: 41-12-1586Rgnqgsb encounter /14/2024 8:45 AM EDT Office Visit [facility] [address] [facility] [place] [address] Akila Yao MD [address] 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 Expected: 11/07/2023 (Approximate), Expires: 05/07/2024[facility] SystemComment on above: Expected: 11/07/2023 (Approximate), Expires: 05/07/2024Start: 11-07-2023 End: 98-43-5558Ljyhkrs encounter procedureNOMS SWS ALLComment on above:Allergic reaction, subsequent encounterStart: 10-10-2023 End: 52-10-1543Qedghec encounter procedureNOMS CWM FMComment on above:Arrived Start: 78-95-7463QRXEY-19 Vaccine ( season)COVID-19 Vaccine ( season)[facility]Start: 74-11-9322Dqivg-19 Vaccine ( season)Covid-19 Vaccine ( season)[facility]: 38-49-6785Hwfbwpctv vaccinationCommunity Memorial Hospitaltart: 10-03-2023 End: 58-18-0266IOT W Auto Differential panel - BloodCBC + DIFF Lab Routine 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) Coagulopathy (HCC) Expected: 10/03/2023 (Approximate), Expires: 10/03/2023[facility] Work Phone: Comment on above:Expected: 10/03/2023 (Approximate), Expires: 10/03/2023Start: 10-03-2023 End: 63-85-2550Prrwtdshyitec metabolic 2000 panel - Serum or PlasmaCOMP METABOLIC PANEL Lab Routine 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) Coagulopathy (HCC) Expected: 10/03/2023 (Approximate), Expires: 10/03/2023[facility] Work Phone: Comment on above:Expected: 10/03/2023 (Approximate), Expires: 10/03/2023Start: 09-26-2023 End: 42-25-2651Eeaszfj encounter ygrxmnzzw47/21/2024 9:15 AM EDT Office Visit [facility] [address] [place] [address] Cas Galicia MD [address] [place] [address] ArrivedNOMS CWM FMComment on above:ArrivedStart: 51-94-2386Qluhkpkuj vaccinationFlu vaccine (#1)[facility]Start: 07-10-2023 End: 36-48-2663Qycsrnv encounter srcnfashx14/04/2024 9:00 AM EDT Office Visit [facility] [address] [place] [address] Jodi Holden, [place] [address] [place] [address] [facility] TSR DERMStart: 07-05-2023 End: 18-26-3362Fhfrjdxtheue consultation with hpnfyrs6707/05/2023 3:30 PM EDT Telemedicine [facility] [address] [place] [address] Marni Flowers APRN-MISCELLANEOUS MACHINE OPERATOR [address] [place] [address] [facility] NeurologyStart: 05-08-2023 End: 16-46-0870XZ Thyroid glandUltrasound thyroid Imaging Routine 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 [place] [address] [facility] EndocrinologyStart: 04-09-2023 End: 77-76-6319Aaeislq encounter vqvnxorvz79/04/2024 8:45 AM EST [facility] [address] [place] [address] Cas Galicia MD [address] [place] [address] N[facility]S ACE FMStart: 52-34-9074Yegtgkazcm A1c measurementDiabetes: Hemoglobin R8KNVGVResearch Medical Center-Brookside CampusStart: 46-93-6934BFY test (Diabetes, CKD 3-4, OR last GFR 15-59)GFR test (Diabetes, CKD 3-4, OR last GFR 15-59)[facility] Start: 68-98-7079Ebqqieopfk A1c cvjwvgmublqB7R test (Diabetic or Prediabetic)[facility]ITALStart: 16-79-3195Cuauq depression screening assessment DEPRESSION SCREENINGCommunity Memorial Hospitaltart: 69-21-9953Mumis depression screening assessmentDEPRESSION SCREENINGCommunity Memorial Hospitaltart: 59-60-7184Pdknd-19 Vaccine ( season)Covid-19 Vaccine ( season)[facility]: 81-15-4955Renujjamy vaccinationCommunity Memorial Hospitaltart: 10-01-2022 End: 02-96-6087ZOP W Auto Differential panel - BloodCBC + DIFF Lab Routine 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) Expected: 10/01/2022 (Approximate), Expires: 04/03/2023[facility] Work Phone: Comment on above:Expected: 10/01/2022 (Approximate), Expires: 04/03/2023Start: 10-01-2022 End: 56-94-5600Gkyhgoflseqaz metabolic 2000 panel - Serum or PlasmaCOMP METABOLIC PANEL Lab Routine 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) Expected: 10/01/2022 (Approximate), Expires: 04/03/2023[facility] Work Phone: Comment on above:Expected: 10/01/2022 (Approximate), Expires: 04/03/2023Start: 32-51-5882Ryuqk depression screening assessment DEPRESSION SCREENINGCommunity Memorial Hospitaltart: 44-38-4516Ghnct depression screening assessmentDEPRESSION SCREENINGCommunity Memorial Hospitaltart: 19-38-5161Iuvym depression screening assessmentDEPRESSION SCREENINGCommunity Memorial Hospitaltart: 06-21-2022 End: 25-95-7220Knjbnbt encounter waeamzwim33/17/2023 Office Visit Pulmonology Armando Balderrama DO [address] [address] [facility] Part [facility] Start: 79-42-8262Icqqn depression screening assessmentDEPRESSION SCREENING [facility] Hospitalt[facility]: 52-12-9305Uvokhattty MonitoringDepression MonitoringRiverview Health InstituteStart: 51-09-5160Nwttl depression screening assessmentDEPRESSION SCREENINGCommunity Memorial Hospitaltart: 83-29-1254Iifgcajlkm measurementCreatinine monitoringRiverview Health InstituteStart: 02-56-2135Cvnzbamml monitoringPotassium monitoring [facility] InstituteStart: 02-27-2022 End: 35-08-2637Qyvfijq encounter obrakqyqg34/23/2023 Office Visit Pulmonology Nabor Yancey, ASSEMBLING FABRICATOR - MISCELLANEOUS MACHINE OPERATOR [address] [id number] [facility]art: 02-10-2022 End: 10-32-3468KVPUIOSE TRANSMISSION ELECTRON MICROSCOPIC STUDYPLATELET TRANSMISSION ELECTRON MICROSCOPIC STUDY Lab Routine 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) Expected: 02/10/2022, Expires: 04/12/2022 [facility] Work Phone: Comment on above:Expected: 02/10/2022, Expires: 04/12/2022Start: 64-13-8885ELDIZCQLHH ASSESSMENTDEPRESSION ASSESSMENTCommunity Memorial Hospitaltart: 2021 End: 76-85-6043Yfzmhbv encounter /16/2022 Office Visit Pulmonology Armando Balderrama DO [address] [place] [address] [facility] Part of [facility] Start: 11-16-2021 End: 99-82-1482Eyezqjdj [Mass/volume] in Serum or PlasmaFERRITIN BLD Lab Routine RLS (restless legs syndrome) Expected: 11/16/2021, Expires: 01/16/2022[facility] Work Phone: comment on above:Expected: 11/16/2021, Expires: 01/16/2022tart: 11-16-2021 End: 06-07-4591Spxv and Iron binding capacity panel - Serum or PlasmaIRON + TIBC Lab Routine RLS (restless legs syndrome) Expected: 11/16/2021, Expires: 01/16/2022[facility] Work Phone: comment on above:Expected: 11/16/2021, Expires: 01/16/2022tart: 34-78-9319Awxixfearm measurementCreatinine monitoringMercy Health Work Phone: start: 67-69-9314Fblhxpfpw monitoringPotassium monitoringMer Health Work Phone: start: 57-26-0147Fpyczlszt [facility] Start: 65-15-2340Gcmzjeng screeningDiabetic retinal examBON MEDINA HOSPITAL Start: 09-21-2021 End: 32-14-6648Kmteagqda [Mass/volume] in Serum or PlasmaNorwalk Memorial Hospital Work Phone: comment on above:Expected: 09/21/2021, Expires: 11/21/2021tart: 09-19-2021 End: 71-60-575656209861-nnjryfqhdfqjsu D3 [Mass/volume] in Serum or PlasmaVITAMIN D 25 HYDROXY Lab Routine History of COVID-19 Post-acute sequelae of COVID-19 (PASC) SOB (shortness of breath) Chronic cough Chest discomfort Palpitation CAVANAUGH (dyspnea on exertion) Dizziness Near syncope Night sweats Orthopnea Anxiety Myalgia Pain in joint, multiple sites Expected: 09/19/2021, Expires: 11/19/2021 [facility] Work Phone: Comment on above:Expected: 09/19/2021, Expires: 11/19/2021tart: 09-19-2021 End: 11-19-2021 reactive protein [Mass/volume] in Serum or PlasmaC-REACTIVE PROTEIN (CRP) Lab Routine History of COVID-19 Post-acute sequelae of COVID-19 (PASC) SOB(shortness of breath) Chronic cough Chest discomfort Palpitation CAVANAUGH (dyspnea on exertion) Dizziness Near syncope Night sweats Orthopnea Anxiety Myalgia Pain in joint, multiple sites Expected: 09/19/2021, Expires: 11/19/2021 [facility] Work Phone: Comment on above:Expected: 09/19/2021, Expires: 11/19/2021tart: 09-19-2021 End: 11-99-6973OOPYNYVUWYM IGM ABSCARDIOLIPIN IGM ABS Lab Routine History of COVID-19 Post-acute sequelae of COVID-19 (PASC) SOB (shortness of breath) Chronic cough Chest discomfort Palpitation CAVANAUGH (dyspnea on exertion) Dizziness Near syncope Night sweats Orthopnea Anxiety Myalgia Pain in joint, multiple sites Expected: 09/19/2021,Expires: 10/15/[address] [place] [address] Work Phone: Comrwww on above:Expected: 09/19/2021, Expires: 11/19/2021tart: 09-19-2021 End: 79-19-0545KSA panel - Blood by Automated countCBC Lab Routine History of COVID-19 Post-acute sequelae of COVID-19 (PASC) SOB (shortness of breath) Chronic cough Chest discomfort Palpitation CAVANAUGH (dyspnea on exertion) Dizziness Near syncope Night sweats Orthopnea Anxiety Myalgia Pain in joint, multiple sites Expected: 09/19/2021, Expires: 11/19/2021[facility] Work Phone: Combpbk on above:Expected: 09/19/2021, Expires: 11/19/2021tart: 09-19-2021 End: 41-44-5940Iblcqllkn (Vitamin B12) [Mass/volume] in Serum or PlasmaVITAMIN B12 BLOOD Lab Routine History of COVID-19 Post-acute sequelae of COVID-19 (PASC) SOB (shortness of breath) Chronic cough Chest discomfort Palpitation CAVANAUGH (dyspnea on exertion) Dizziness Near syncope Night sweats Orthopnea Anxiety Myalgia Pain in joint, multiple sites Expected: 09/19/2021, Expires: 11/19/2021 [facility] Work Phone: Comspcb on above:Expected: 09/19/2021, Expires: 11/19/2021tart: 09-19-2021 End: 44-51-0759Jewahvovmrkhx metabolic 2000 panel - Serum or PlasmaCOMP METABOLIC PANEL Lab Routine History of COVID-19 Post-acute sequelae of COVID-19 (PASC) SOB (shortness of breath) Chronic cough Chest discomfort Palpitation CAVANAUGH (dyspnea on exertion) Dizziness Near syncope Night sweats Orthopnea Anxiety Myalgia Pain in joint, multiple sites Expected: 09/19/2021, Expires: 11/19/2021 [facility] Work Phone: Comxegh on above:Expected: 09/19/2021, Expires: 11/19/2021tart: 09-19-2021 End: 75-84-4705Xatpvjaipbm sedimentation rateSED RATE WESTERGREN Lab Routine History of COVID-19 Post-acute sequelae of COVID-19 (PASC) SOB (shortness of breath) Chronic cough Chest discomfort Palpitation CAVANAUGH (dyspnea on exertion) Dizziness Near syncope Night sweats Orthopnea Anxiety Myalgia Pain in joint, multiple sites Expected: 09/19/2021,Expires: 11/19/2021[facility] Work Phone: Comment on above:Expected: 09/19/2021, Expires: 11/19/2021tart: 09-19-2021 End: 36-96-8001Sxptje D-dimer FEU [Mass/volume] in Platelet poor plasmaD-DIMER Lab Routine History of COVID-19 Post-acute sequelae of COVID-19 (PASC) SOB (shortness of breath) Chronic cough Chest discomfort Palpitation CAVANAUGH (dyspnea on exertion) Dizziness Near syncope Night sweats Orthopnea Anxiety Myalgia Pain in joint, multiple sites Expected: 09/19/2021, Expires: 11/19/2021[facility] Work Phone: Comment on above:Expected: 09/19/2021, Expires: 11/19/2021tart: 09-19-2021 End: 08-66-4117Xqkkcrtsafb peptide.B prohormone N-Terminal [Mass/volume] in Serum or PlasmaNT PRO BNP Lab Routine History of COVID-19 Post-acute sequelae of COVID-19 (PASC) SOB (shortness ofbreath) Chronic cough Chest discomfort Palpitation CAVANAUGH (dyspnea on exertion) Dizziness Near syncopeNight sweats Orthopnea Anxiety Myalgia Pain in joint, multiple sites Expected: 09/19/2021, Expires:11/19/2021[facility] Work Phone: Comment on above:Expected: 09/19/2021, Expires: 11/19/2021tart: 09-19-2021 End: 32-02-3928UCTZVJAKKZGEJEBQKIKF Lab Routine History of COVID-19 Post-acute sequelae of COVID-19 (PASC) SOB (shortness ofbreath) Chronic cough Chest discomfort Palpitation CAVANAUGH (dyspnea on exertion) Dizziness Near syncopeNight sweats Orthopnea Anxiety Myalgia Pain in joint, multiple sites Expected: 09/19/2021, Expires:11/19/2021[facility] Work Phone: Comment on above:Expected: 09/19/2021, Expires: 11/19/2021tart: 09-19-2021 End: 69-94-1866NWFZGHBK Lab Routine History of COVID-19 Post-acute sequelae of COVID-19 (PASC) SOB (shortness of breath) Chronic cough Chest discomfort Palpitation CAVANAUGH (dyspnea on exertion) Dizziness Near syncope Nightsweats Orthopnea Anxiety Myalgia Pain in joint, multiple sites Expected: 09/19/2021, Expires: 11/19/2021[facility] Work Phone: Comment on above:Expected: 09/19/2021, Expires: 11/19/2021tart: 09-19-2021 End: 52-68-0533DSDMN ELEMENTS/TPNTRACE ELEMENTS/TPN Lab Routine History of COVID-19 Post-acute sequelae of COVID-19 (PASC) SOB (shortness of breath) Chronic cough Chest discomfort Palpitation CAVANAUGH (dyspnea on exertion) Dizziness Nearsyncope Night sweats Orthopnea Anxiety Myalgia Pain in joint, multiple sites Expected: 09/19/2021, Expires: 11/19/2021[facility] Work Phone: Comment on above:Expected: 09/19/2021, Expires: 11/19/2021tart: 55-57-8078Cfigyjell vaccinationFlu vaccine (#1)[facility]: [facility] End: 22-50-6759Gkskose encounter argfmcaxz10/20/2022 Office Visit Pulmonology Armando Balderrama, [address] [place] [address] [facility] Start: 07-25-2021 End: 71-14-2070Cglvahhpyb C3 [Mass/volume] in Serum or PlasmaNorwalk Memorial Hospital Work Phone: Comment on above:Expected: 07/25/2021, Expires: 09/24/2021tart: 07-25-2021 End: 18-10-5531Bmevkebxnq C4 [Mass/volume] in Serum or PlasmaNorwalk Memorial Hospital Work Phone: Comment on above:Expected: 07/25/2021, Expires: 09/24/2021tart: 07-25-2021 End: 51-72-3827HAPWIYXX BLOODNorwalk Memorial Hospital Work Phone: Comment on above:Expected: 07/25/2021, Expires: 09/24/2021tart: 07-05-2021 End: 50-73-7757Dswauluycgjke [Mass/volume] in PlasmaACTH BLD Lab Routine Screening for endocrine disorder Expected: 07/05/2021, Expires: 09/04/2021 [facility] Work Phone: Comment on above:Expected: 07/05/2021, Expires: 09/04/2021tart: 07-05-2021 End: 46-40-6866Ohryeeel [Mass/volume] in Serum or PlasmaCORTISOL BLD Lab Routine Screening for endocrine disorder Expected: 07/05/2021, Expires: 09/04/2021 [facility] Work Phone: Comment on above:Expected: 07/05/2021, Expires: 09/04/2021tart: 07-01-2021 End: 41-29-5031ERN W Ordered Manual Differential panel - BloodPATHOLOGIST INTERPRETATION WITH CBC AND DIFF Lab Routine Coagulopathy (HCC) Qualitative platelet disorder (HCC) Expected: 07/01/2021, Expires: 08/31/2021[facility] Work Phone: Comment on above:Expected: 07/01/2021, Expires: 08/31/2021tart: 07-01-2021 End: 13-07-1795Detgunixqn [Mass/volume] in Platelet poor plasma by Coagulation assayFIBRINOGEN Lab Routine Coagulopathy (HCC) Qualitative platelet disorder (HCC) Expected: 07/01/2021,Expires: 08/31/2021[facility] Work Phone: Comment on above:Expected: 07/01/2021, Expires: 08/31/2021tart: 07-01-2021 End: 14-63-0568NXWBDZMZYM ANTIGENFIBRINOGEN ANTIGEN Lab Routine Coagulopathy (HCC) Qualitative platelet disorder (HCC) Expected: 07/01/2021, Expires: 08/31/2021[facility] Work Phone: Comment on above:Expected: 07/01/2021, Expires: 08/31/2021tart: 07-01-2021 End: 93-36-7092YSIAQWPA AGGREGATION PANELPLATELET AGGREGATION PANEL Lab Routine Coagulopathy (HCC) Qualitative platelet disorder (HCC) Expected: 07/01/2021, Expires: 08/31/2021[facility] Work Phone: Comment on above:Expected: 07/01/2021, Expires: 08/31/2021tart: 07-01-2021 End: 45-67-8438VMWJBVWD FUNCTION SCREENPLATELET FUNCTION SCREEN Lab Routine Coagulopathy (HCC) Qualitative platelet disorder (HCC) Expected: 07/01/2021, Expires: 08/31/2021[facility] Work Phone: Comment on above:Expected: 07/01/2021, Expires: 08/31/2021tart: 07-01-2021 End: 36-57-9488CXZOBXYDDSRS HEPARINASE PANELTHROMBOGRAPH HEPARINASE PANEL Lab Routine Coagulopathy (HCC) Qualitative platelet disorder (HCC) Expected: 07/01/2021, Expires: 08/31/2021[facility] Work Phone: Comment on above:Expected: 07/01/2021, Expires: 08/31/2021tart: 06-27-2021 End: 65-78-6639Bdcxf tocopherol [Mass/volume] in Serum or PlasmaVITAMIN E/TOCOPHEROL Lab Routine Muscle spasms of lower extremity, unspecified laterality AkathisiaExpected: 06/27/2021, Expires: 08/27/2021[facility] Work Phone: Comment on above:Expected: 06/27/2021, Expires: 08/27/2021tart: 06-27-2021 End: 14-50-7182Hwuikixhiecfi [Mass/volume] in Serum or PlasmaCERULOPLASMIN BLD Lab Routine Muscle spasms of lower extremity, unspecified laterality Akathisia Expected: 06/27/2021, Expires: 08/27/2021[facility] Work Phone: Comment on above:Expected: 06/27/2021, Expires: 08/27/2021tart: 06-27-2021 End: 06-10-0855RG CREATINE KINASECK CREATINE KINASE Lab Routine Muscle spasms of lower extremity, unspecified laterality Akathisia Expected: 06/27/2021, Expires: 08/27/2021[facility] Work Phone: Comment on above:Expected: 06/27/2021, Expires: 08/27/2021tart: 06-27-2021 End: 40-11-0131WUKEMO, SERUM/PLASMA FREECOPPER, SERUM/PLASMA FREE Lab Routine Muscle spasms of lower extremity, unspecified laterality Akathisia Expected: 06/27/2021, Expires: 08/27/2021[facility] Work Phone: Comment on above:Expected: 06/27/2021, Expires: 08/27/2021tart: 06-27-2021 End: 47-87-3955TVKCXRJH BLDFERRITIN BLD Lab Routine Muscle spasms of lower extremity, unspecified laterality Akathisia Expected: 06/27/2021, Expires: 08/27/2021[facility] Work Phone: Comment on above:Expected: 06/27/2021, Expires: 08/27/2021tart: 06-14-2021 End: 39-00-7680Oqxflfdtuwdbg [Mass/volume] in PlasmaACTH BLD Lab Routine Screening for endocrine disorder Expected: 06/14/2021, Expires: 08/14/2021 [facility] Work Phone: Comment on above:Expected: 06/14/2021, Expires: 08/14/2021tart: 06-14-2021 End: 54-87-0807Fjggzrxv [Mass/volume] in Serum or PlasmaNorwalk Memorial Hospital Work Phone: Comuwui on above:Expected: 06/14/2021, Expires: 08/14/2021tart: 06-14-2021 End: 98-19-7914COGD-S [facility] Work Phone: Comment on above:Expected: 06/14/2021, Expires: 08/14/2021tart: 06-10-2021 End: 62-43-1865TZCR INCUBATED MIXING STUDYAPTT INCUBATED MIXING STUDY Lab Routine Coagulopathy ([facility]) Expected: 06/10/2021, Expires: [address] [place] [address] Work Phone: Comment on above:Expected: 06/10/2021, Expires: 08/10/2021tart: 06-10-2021 End: 28-04-2812Zromffxgjgh factor IX activity actual/normal in Platelet poor plasma by Coagulation assayFACTOR IX:C ASSAY Lab Routine Coagulopathy ([facility]) Expected: 06/10/2021, Expires: [address] [place] [address] Work Phone: Comment on above:Expected: 06/10/2021, Expires: 2Start: 06-10-2021 End: 29-35-3738Eniiyivlgkz factor V activity actual/normal in Platelet poor plasma by Coagulation assayFACTOR V:C ASSAY Lab Routine Coagulopathy ([facility]) Expected: 06/10/2021, Expires: [address] [place] [address] Work Phone: Comment on above:Expected: 06/10/2021, Expires: 08/10/2021tart: 06-10-2021 End: 63-62-1254Befowkoycvx factor VIII activity actual/normal in Platelet poor plasma by Coagulation assayFACTOR VIII:C ASSAY Lab Routine Coagulopathy ([facility]) Expected: 06/10/2021, Expires: [address] [place] [address] Work Phone: Comment on above:Expected: 06/10/2021, Expires: 08/10/2021tart: 06-10-2021 End: 93-36-1752Jzugyrazajd factor X activity actual/normal in Platelet poor plasma by Coagulation assayFACTOR X:C ASSAY Lab Routine Coagulopathy ([facility]) Expected: 06/10/2021, Expires: [address] [place] [address] Work Phone: Comment on above:Expected: 06/10/2021, Expires: 08/10/2021tart: 06-10-2021 End: 42-99-5907Xeilzgaakac factor XI activity actual/normal in Platelet poor plasma by Coagulation assayFACTOR XI:C ASSAY Lab Routine Coagulopathy ([facility]) Expected: 06/10/2021, Expires: [address] [place] [address] Work Phone: Comment on above:Expected: 06/10/2021, Expires: 08/10/2021tart: 06-10-2021 End: 69-03-0564JSWASNXZ AGGREGATION PANELPLATELET AGGREGATION PANEL Lab Routine Coagulopathy ([facility]) Expected: 06/10/2021, Expires: [address] [place] [address] Work Phone: Comment on above:Expected: 06/10/2021, Expires: 2Start: 06-10-2021 End: 58-92-5967RDRCTBWV FUNCTION SCREENPLATELET FUNCTION SCREEN Lab Routine Coagulopathy ([facility]) Expected: 06/10/2021, Expires: [address] [place] [address] Work Phone: Comment on above:Expected: 06/10/2021, Expires: 08/10/2021tart: 06-10-2021 End: 94-52-7023Onlfpfkdzux activity actual/normal in Platelet poor plasma by Coagulation assayFACTOR II:C ASSAY Lab Routine Coagulopathy ([facility]) Expected: 06/10/2021, Expires: 08/10/2021[facility] Work Phone: Comment on above:Expected: 06/10/2021, Expires: 08/10/2021tart: 06-10-2021 End: 10-21-4533GPU WILLEBRAND DX PANELVON WILLEBRAND DX PANEL Lab Routine Coagulopathy (HCC) Expected: 06/10/2021, Expires: 08/10/2021[facility] Work Phone: Comment on above:Expected: 06/10/2021, Expires: 08/10/2021tart: 05-25-2021 End: 05-31-9362Ismedfn encounter yuqhaluwz16/20/2022 Office Visit Pulmonology Armando Balderrama DO [address] [id number] [facility] Start: 02-28-2021 End: 29-55-6431Srovnnf encounter yxtkwvhnb88/24/2022 Office Visit Pulmonology Fortunato Dean MD [address] [place] [address] [place] [address] [id number] [facility] Start: 37-35-8113AIUINKQORT ASSESSMENTDEPRESSION ASSESSMENTBrown Memorial Hospital Start: 21-26-6199Pwpgwvkmw vaccinationBellevue Hospital HealthStart: 06-28-2020 End: 89-88-7089Ibssywg encounter lreszqait62/24/2021 Office Visit Pulmonology Fortunato Dean MD [address] [place] [address] [place] [address] [id number] [facility] Start: 40-21-0210Cpwuvqbw screenDiabetes screenRiverview Health InstituteStart: 03-17-2016 Screening for malignant neoplasm of cervixCervical cancer screenRiverview Health Institute Work Phone: start: 31-00-5327GOL TESTINGHPV TESTINGCommunity Memorial Hospitaltart: 28-92-5538YME Vaccine (1 - 3-dose SCDM series)HPV Vaccine (1 - 3- dose SCDM series)[facility]: 19-28-7488YLE TESTINGPAP TESTING [facility]: 46-15-2792Bofxdwdgb for malignant neoplasm of cervix Cervical Cancer ScreeningCommunity Memorial Hospitaltart: 23-87-4882IQqY,Tdap and Td Vaccines (1 - Tdap)DTaP,Tdap and Td Vaccines (1 - Tdap)[facility] Start: 03-61-6627KTwA/Tdap/Td vaccine (1 - Tdap)DTaP/Tdap/Td vaccine (1 - Tdap) [facility] InstituteStart: 09-55-1035Vuqcwqkhc B Vaccine (1 of 3 - 19+ 3-dose series) Hepatitis B Vaccine (1 of 3 - 19+ 3-dose series)[facility]: 82-37-9443Rkdvhzwfc B vaccine (1 of 3 - Risk 3-dose series)Hepatitis B vaccine (1 of 3 - Risk 3-dose series)[facility] Pneumococcal 0-49 years Vaccine (1 of 2 - PCV)Pneumococcal 0-49 years Vaccine (1 of 2 - PCV)[facility]: 50-65-3923Hfzxpdckgshk vaccination Pneumococcal Vaccine (1 of 2 - PCV)[facility]: 97-57-2470Dtqge microalbumin profileCommunity Memorial Hospitaltart: 81-28-7364Ilwhc screening for protein Diabetes: Urine Protein ScreeningResearch Medical Center-Brookside CampusStart: 17-13-2164Qwrkk BMI Follow Up PlanAdult BMI Follow Up PlanFormerly [facility]aretart: 12-20-2001 ANNUAL PCP TEAM CHRONIC DISEASE VISITANNUAL PCP TEAM CHRONIC DISEASE VISIT [facility]: 06-94-7360Tnkaisq ScreeningAnxiety ScreeningCommunity Memorial Hospitaltart: 89-81-0569Gofscdniqv ScreeningDepression ScreeningBrown Memorial Hospital Start: 80-27-7009Sjrowsyd screeningDiabetic retinal examBon [facility] Start: 80-68-8708WDYMAJXRP C SCREENINGHEPATITIS C SCREENINGBrown Memorial Hospital Start: 99-11-3662Allpnibsk C screeningRiverview Health InstituteStart: 11-03-1236HZW SCREENING HIV SCREENINGCommunity Memorial Hospitaltart: 82-75-8488DNH screeningHIV Screening [facility]: 37-14-2215Qniov screening for proteinDiabetic Alb to Cr ratio (uACR) testChildren's Hospital of The King's Daughters: 89-15-0734JTJUU-19 Vaccine (1) COVID-19 Vaccine (1)[facility] Phone: start: 76-95-1357KSQ screeningHIV screenRiverview Health Institute Start: 73-91-3041Qpzfndkzp vaccine (1 of 2 - 13+ 2-dose series)Varicella vaccine (1 of 2 - 13+ 2-dose series)[facility] Montgomeryart: 49-24-8950EOAFH-19 Vaccine (1)COVID-19 Vaccine (1)[facility] Phone: start: 77-30-2980Vchzwpkzmr ScreenDepression Screen [facility]: 21-24-8198Yuqzezkt foot examinationDiabetic foot examChildren's Hospital of The King's Daughters: 68-30-5011Frikhxen screeningDiabetes: Retinopathy ScreeningResearch Medical Center-Brookside CampusStart: 55-73-1411Ilidg panelLipidsChildren's Hospital of The King's Daughters: 77-51-8174XUSNEUFVPKRZ (1 - PCV)PNEUMOCOCCAL (1 - PCV)[facility]: 65-25-8507Yjwoskgiqgvu 0-64 years Vaccine (1 - PCV)Pneumococcal 0- 64 years Vaccine (1 - PCV)[facility]: 60-42-9982Vpaxfubgymyd 0-64 years Vaccine (1 of 2 - PCV)Pneumococcal 0-64 years Vaccine (1 of 2 - PCV)[facility]: 92-84-6239Vvrzyoikbhkr 0-64 years Vaccine (1 of 2 - PPSV23) Pneumococcal 0-64 years Vaccine (1 of 2 - PPSV23)[facility]: [birth year]1989 Pneumococcal vaccinationPneumococcal Vaccine (1 of 2 - PCV)[facility] Start: 53-36-0911WAGCP-19 VACCINE (#1)COVID-19 VACCINE (#1)[facility] Start: 80-35-5407VXFDN-19 Vaccine (1)COVID-19 Vaccine (1)[facility]: 34-29-0576Meunrlnil vaccine (1 of 2 - 2-dose childhood series)Varicella vaccine (1 of 2 - 2-dose childhood series)[facility]: 08-44-3118MVXDA-19 VACCINE (#1)COVID-19 VACCINE (#1)[facility]: 95-45-4844BQEZRJZAD B (1 of 3 - 3-dose series)HEPATITIS B (1 of 3 - 3-dose series)[facility]: 61-04-5134Emcikhkmw C screeningHepatitis C screenMercy HealthACTIGRAPHY TESTING ACTIGRAPHY TESTING Procedures Routine Shift work sleep disorder Poor sleep pattern 1 Occurrences starting 11/16/2021[facility] Work Phone: comment on above:1 Occurrences starting 11/16/2021 End: 94-05-3477RNH VideostroboscopyAMB Videostroboscopy Imaging Routine Vocal cord dysfunction 1 Occurrences starting 10/28/2024 until10/28/2025[facility] Work Phone: Comment on above:1 Occurrences starting 10/28/2024 until 10/28/2025mbulatory bp mntr w/sw 24 hr+ rec scan ewa i&rAMBULATORY BP MONITORING Cardiology Routine Blood pressure instability Ordered: 07/21/2021 [facility] Work Phone: Comment on above:Ordered: 07/21/2021LOOD CULTURE 1 BLOOD CULTURE 1 Lab Routine 02/20/2024 2:16 PM [facility] HealthcareBLOOD CULTURE 2 BLOOD CULTURE 2 Lab Routine 02/20/2024 2:17 PM [facility] HealthcareCardiovascular function eval w/tilt table w/mntrTILT TABLE EVALUATION Cardiology Routine Palpitations Symptomatic bradycardia Orthostatic intolerance Ordered: 10/20/2021 [facility] Work Phone: Comment on above:Ordered: 10/20/2021ytology Cervical or vaginal smear or scraping studyPap Smear Pathology and Cytology Routine Well woman exam with routine gynecological exam Ordered: 11/20/2023[facility] [employer] Work Phone: comment on above:Ordered: 11/20/2023HEA-sulfateDHEA- sulfate Lab Routine Hormone disorder Ordered: 12/01/2024[facility] HealthcareComment on above:Ordered: 12/01/2024 End: 95-43-6970XowcojdqomcaekecQTVD Cardiology Routine Symptomatic bradycardia Blood pressure instability History of COVID-19 1 Occurrences starting 07/21/2021 until 07/21/2022[facility] Work Phone: Comment on above:1 Occurrences starting 07/21/2021 until 07/21/2022EKG 12 LeadEKG 12 Lead ECG STAT 11/01/2020 4:26 PM [facility] Work Phone: ekg 12 LeadEKG 12 Lead ECG STAT 04/16/2021 8:11 PM [facility] [employer] Work Phone: ekg 12 LeadEKG 12 Lead ECG STAT 06/21/2021 12:06 AM [facility] Work Phone: estradiolEstradiol Lab Routine Hormone disorder Ordered: 12/01/2024[facility] [employer] Work Phone: comment on above:Ordered: 12/01/2024Human papilloma virus DNA [Presence] in Unspecified specimen by Probe with amplificationHPV DNA probe, amplified Microbiology Routine Well woman exam with routine gynecological exam Ordered: 11/20/2023[facility] HealthcareComment on above:Ordered: 11/20/2023 End: 00-46-0749BGAS DIFFUSION CAPACITY (DLCO)LUNG DIFFUSION CAPACITY (DLCO) PFT Routine History of COVID-19 Post-acute sequelae of COVID-19 (PASC) SOB (shortness of breath) Chronic cough Chest discomfort Palpitation CAVANAUGH (dyspnea on exertion) Dizziness Near syncope Night sweats Orthopnea Anxiety Myalgia Pain in joint, multiple sites 1 Occurrences starting 09/19/2021 until 10/19/2022 [facility] Work Phone: Comment on above:1 Occurrences starting 09/19/2021 until 10/19/2022 End: 61-82-7817JGUZ VOLUMESLUNG VOLUMES PFT Routine History of COVID-19 Post- acute sequelae of COVID-19 (PASC) SOB (shortness of breath) Chronic cough Chest discomfort Palpitation CAVANAUGH (dyspnea on exertion) Dizziness Near syncope Night sweats Orthopnea Anxiety Myalgia Pain in joint, multiple sites 1 Occurrences starting 09/19/2021 until 10/19/2022[facility] Work Phone: Comment on above:1 Occurrences starting 09/19/2021 until 10/19/2022 End: 84-26-1321Immyn Antibody, IgGBon Secours Riverview Health InstituteComment on above:Once for 1 Occurrences starting 12/27/2023 until 12/27/2023 End: 55-93-8701POAWRU OXIDE, EXHALEDNITRIC OXIDE, EXHALED PFT Routine Moderate persistent asthma without complication SOB (shortness ofbreath) Post-acute sequelae of COVID-19 (PASC) 1 Occurrences starting 12/06/2021 until 01/05/2023 [facility] Work Phone: comment on above:1 Occurrences starting 12/06/2021 until 01/05/2023OUTSIDE VENDOR CARDIAC OUTPATIENT EXTENDED RHYTHM RECORDING (WITHOUT TELEMETRY)OUTSIDE VENDOR CARDIAC OUTPATIENT EXTENDED RHYTHM RECORDING (WITHOUT TELEMETRY) Holter Routine Palpitations Symptomatic bradycardia Orthostatic lightheadedness Diffuse pain Blood pressure instabilityDecreased activity tolerance Orthostatic intolerance Moderate persistent asthma without complication Physical deconditioning Ordered: 10/20/2021[facility] Work Phone: Comment on above:Ordered: 10/20/2021 End: 68-82-9622YQD NAP PSG (CPAP, BILEVEL, ASV)PAP NAP PSG (CPAP, BILEVEL, ASV) Procedures Routine KATELIN on CPAP Poor compliance with CPAP treatment1 Occurrences starting 11/16/2021 until 12/16/2022[facility] Work Phone: comsjlv on above:1 Occurrences starting 11/16/2021 until 12/16/2022 End: 24-94-3994BNQ TITRATION PSG (CPAP, BIPAP, ASV)PAP TITRATION PSG (CPAP, BIPAP, ASV) Procedures Routine KATELIN on CPAP 1 Occurrences starting 11/16/2021 until 12/16/2022[facility] Work Phone: comment on above:1 Occurrences starting 11/16/2021 until 12/16/2022 End: 25-25-4352LJAGAYIT ELECT.DEMETRIA [employer] Work Phone: comment on above:Once for 1 Occurrences starting 02/17/2022 until 3ProgesteroneProgesterone Lab Routine Hormone disorder Ordered: 12/01/2024[facility] HealthcareComment on above:Ordered: 12/01/2024 End: 78-88-7039Dfsjtusozm exam chest 2 viewsXR CHEST 2V FRONTAL/LAT Radiology Routine History of COVID-19 Post-acute sequelae of COVID-19 (PASC) SOB (shortness of breath) Chronic cough Chest discomfort Palpitation CAVANAUGH (dyspnea on exertion) Dizziness Near syncope Night sweats Orthopnea Anxiety Myalgia Pain in joint, multiple sites 1 Occurrences starting 09/19/2021 until 10/19/2022 [facility] Work Phone: Comment on above:1 Occurrences starting 09/19/2021 until 10/19/2022 End: 29-69-5284Pvlmlfu Antibody, IgGBon [employer] Work Phone: Comment on above:Once for 1 Occurrences starting 12/27/2023 until 12/27/2023 End: 36-15-2246VOJ MINUTE WALKSIX MINUTE WALK PFT Routine History of COVID-19 Post-acute sequelae of COVID-19 (PASC) SOB (shortness of breath) Chronic cough Chest discomfort Palpitation CAVANAUGH (dyspnea on exertion) Dizziness Near syncope Night sweats Orthopnea Anxiety Myalgia Pain in joint, multiple sites 1 Occurrences starting 09/19/2021 until 10/19/2022[facility] Work Phone: Comment on above:1 Occurrences starting 09/19/2021 until 10/19/2022SIX MINUTE WALKSIX MINUTE WALK PFT Routine History of COVID-19 Post-acute sequelae of COVID-19 (PASC) SOB (shortness of breath) Chronic cough Chest discomfort Palpitation CAVANAUGH (dyspnea on exertion) Dizziness Near syncope Night sweats Orthopnea Anxiety Myalgia Pain in joint, multiple sites 09/27/2021 8:23 AM [facility] Work Phone: End: 49-55-8265RTQYJBWGVY - BASELINE AND POST DILATORSPIROMETRY - BASELINE AND POST DILATOR PFT Routine History of COVID-19 Post-acute sequelae of COVID-19 (PASC) SOB (shortness of breath) Chronic cough Chest discomfort Palpitation CAVANAUGH (dyspnea on exertion) Dizziness Near syncope Night sweats Orthopnea Anxiety Myalgia Pain in joint, multiple sites 1 Occurrences starting 09/19/[address] [place] [address] Work Phone: Comment on above:1 Occurrences starting 09/19/2021 until 10/19/2022 End: 20-78-3559JWCVZVHVOW - BASELINE AND POST DILATORSPIROMETRY - BASELINE AND POST DILATOR PFT Routine Moderate persistent asthma without complication SOB (shortness of breath) Post-acute sequelae of COVID-19 (PASC) 1 Occurrences starting 12/06/[address] [place] [address] Work Phone: comment on above:1 Occurrences starting 12/06/2021 until 01/05/2023TESTOSTERONE, FREETESTOSTERONE, FREE Lab Routine Hormone disorder Ordered: 12/01/2024[facility] HealthcareComment on above:Ordered: 12/01/2024 Testosterone, free, totalTestosterone, free, total Lab Routine Hormone disorder Ordered: 12/01/2024[facility] HealthcareComment on above:Ordered: 12/01/2024THIN PREP TIS PAP AND HR HPV DNATHIN PREP TIS PAP AND HR HPV DNA Pathology and Cytology Routine Well woman exam with routine gynecological exam Ordered: 12/01/2024[facility] HealthcareComment on above:Ordered: 12/01/2024 End: 86-56-8614Atzqhij profile includes TSH YY2Wkjtenq profile includes TSH FT4 Lab Routine 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 1 Occurrences starting 05/08/2023 until 05/07/2024[facility] Work Phone: comment on above:1 Occurrences starting 05/08/2023 until 05/07/2024 End: 53-52-7200Vfejvwtvzgz [Units/volume] in Serum or PlasmaTSH Lab Routine 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 1 Occurrences starting 11/22/2023 until 11/21/2024[facility] Work Phone: comment on above:1 Occurrences starting 11/22/2023 until 11/21/2024 End: 31-44-5171Wecoyozipyj [Units/volume] in Serum or PlasmaTSH Lab Routine 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 1 Occurrences starting 11/27/2024 until 11/27/2025[facility] SystemComment [facility] above:1 Occurrences starting 11/27/2024 until 11/27/2025 End: 49-43-7733Axtgnnwytul [Units/volume] in Serum or PlasmaTSH Lab Routine 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 1 Occurrences starting 11/24/2024 until 11/24/2025[facility]NPT[facility]Comment [facility] Occurrences starting 11/24/2024 until 11/24/2025Thyrotropin [Units/volume] in Serum or PlasmaTSH Lab Routine 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 11/24/2024 11:00 AM [facility] End: 93-83-6111Lwvhhthmq (T4) free [Mass/volume] in Serum or PlasmaT4, free Lab Routine 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 1 Occurrences starting 11/22/2023 until 11/21/2024[facility] HospitalNPTV [facility] HospitalComment on above:1 Occurrences starting 11/22/2023 until 11/21/2024 End: 27-32-7222Mgaifkzht (T4) free [Mass/volume] in Serum or PlasmaT4, free Lab Routine 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 1 Occurrences starting 11/27/2024 until 11/27/2025[employer] Work Phone: comment on above:1 Occurrences starting 11/27/2024 until 11/27/2025 End: 57-12-1683Bftyxgcxj (T4) free [Mass/volume] in Serum or PlasmaT4, free Lab Routine 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 1 Occurrences starting 11/24/2024 until 11/24/2025[employer] Work Phone: comment on above:1 Occurrences starting 11/24/2024 until 11/24/2025Thyroxine (T4) free [Mass/volume] in Serum or PlasmaT4, free Lab Routine 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 11/24/2024 11:00 AM [facility] End: 42-78-3460Mzodocbbenaqofha (T3) Free [Mass/volume] in Serum or PlasmaT3, free Lab Routine 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 1 Occurrences starting 11/27/2024 until 11/27/2025[facility]Comment [facility] above:1 Occurrences starting 11/27/2024 until 11/27/2025 End: 02-48-8365Mourgliuolxjtpgt (T3) Free [Mass/volume] in Serum or PlasmaT3, free Lab Routine 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 1 Occurrences starting 11/24/2024 until 11/24/2025[facility] HospitalComment on above:1 Occurrences starting 11/24/2024 until 11/24/2025Triiodothyronine (T3) Free [Mass/volume] in Serum or PlasmaT3, free Lab Routine 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 11/24/2024 11:00 AM [facility] End: 95-04-6261La chest real time w/image documentationUS CHEST WALL/SOFT TISSUE Radiology Routine Post-acute sequelae of COVID-19 (PASC) Mass of left axilla 1 Occurrences starting 09/19/2021 until 10/19/2022[facility] Work Phone: Comment on above:1 Occurrences starting 09/19/2021 until 10/19/2022 End: 73-89-4429Ra pelvic nonobstetric image dcmtn limited/f/uUS [employer] Radiology Routine Chronic RLQ pain 1 Occurrences starting 08/16/2021 until 09/15/2022[facility] Work Phone: Comment on above:1 Occurrences starting 08/16/2021 until 09/15/2022 End: 76-00-3054HH SOFT TISSUE ABDOMENUS SOFT TISSUE ABDOMEN Radiology Routine Chronic RLQ pain 1 Occurrences starting 08/15/2021 until 09/14/2022[facility] Work Phone: Comment on above:1 Occurrences starting 08/15/2021 until 09/14/2022 End: 93-76-4210Jjiqwqnsu Zoster Antibody, IgGBon [facility] OhioComment on above:Once for 1 Occurrences starting 12/27/2023 until [facility] Immunizations Immunization DateImmunizationNotesCare DxrrosusNvvboxpc93-41-0510fwomipeii virus vaccine, H5N1, A/ ([facility])Cas Galicia MD Work Phone: [facility] CampusPrahjpnkky39-34-6294dqhsryorx virus vaccine, unspecified formulationAraseli Barrett MD Work Phone: [facility] Work Phone: [phone]44qilydudvp, unspecified formulationJENNIFER TEJ [facility]10-01-2020influenza virus vaccine, unspecified formulationJENNIFER TEJ [facility]10-01-2020influenza, high dose seasonal, preservative-freeYan Bass MD Work Phone: [facility] HospitalBuaoqk92-54-9621lzqrmlvcm virus vaccine, unspecified formulationJENNIFER TEJ [facility]09-21-2020influenza, injectable, quadrivalent, preservative free Yan Bass MD Work Phone: [facility] HospitalNEGATED: Highlighted row has not occurred!36-51-2590djdxdvttq virus vaccine, unspecified formulationSaurabhmegan Beltranlia [phone]-KodxtUc Health [facility] Payers DatePayer CategoryPayerPolicy [id number] Cross Blue Shield [id number]8-52-6022KlkxAultman [facility] Managed Care - [id number] Health [id number]-[id number]-[id number] [id number] 1.2.840.900094.1.13.239.2.7.3.310578.87076-45-2959Jwrxffh [id number] 1.2.840.996870.1.13.239.2.7.9.614508.2757.00113-10-8320Ywvdpte [id number] MMO SUPERMED PLUS [id number] 2014-Present [phone] [address] [place] [address] [id number] 1.2.840.186266.1.13.159.2.7.3.322313.92907-48-8106Iihzffa 1.2.840.779720.1.13.159.2.7.3.261[id number] 2.16.840.1.859960.3.579.[id number] 2.16.840.1.088104.3.579.2.18530-97-0390Ehydaza36400769 2.16.840.1.402405.3.579.2.72501-29-7419Jgsdvib4019687 2.16.840.1.721254.3.579.2.63484-14-4556Agucucn6231213 2.16.840.1.910892.3.579.2.27508-38-2307Tnqbmuv2463848 2..840.1.886168.3.579.2.03449-62-5747Xwnfldd2868101 2..840.1.202691.3.579.2.19638-69-2226Ncolasg6178995 2.16.840.1.634318.3.579.2.50039-66-8703Samldir3223733 2..840.1.436190.3.579.2.58989-81-1731Mebwthe3509011 2.16.840.1.987609.3.579.2.78550-67-4589Wecnzhb1578981 2.16.840.1.777343.3.579.2.57337-01-9497Jurymqp4639489 2.16.840.1.503293.3.579.2.55512-66-9812Xrokutv9330842 2.16.840.1.413830.3.579.2.28140-26-2946Gtslwch4176616 2.16.840.1.666539.3.579.2.61721-41-7801Jokloap1843442 2.16.840.1.715915.3.579.2.12501-39-8137Txkjnjb79878197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 appropriate examination and/or evaluation Counseling and educating the patient/family/caregiver Ordering medications, tests, or procedures Referring and communicating with other health family day carer (not separately reported) Documenting clinical information in the electronic or other health record Independently interpreting results (not separately reported) and communicating results to the patient/family/caregiver Care coordination (not separately reported) - Marni Flowers DNP, ASSEMBLING FABRICATOR-MISCELLANEOUS MACHINE OPERATOR 07/01/24 9:13 AM MarniDEX Ng 01/02/24 1034 DEX Oleary 07/01/24 0913 documented in this encounterMarietta Memorial Hospital05-27-2025 Instructions* Patient Instructions* DEX Oleary [...] other cognitive dysfunction. Call the office at [phone] or send a [employer] message if you develop any of these problems. #9. Ubrelvy 100 mg tablets. Take 1 tablet at the onset of a headache. You can repeat this once 2 hours later. Do not take more than 2 doses in 24-[place] [id number] to activate co-pay card. #10. Prednisone 20 mg tablets. Take 4 tablets (2 +2) for 5 days with food and a low sodium diet. This can cause upset stomach, mood swings, irritability, weight gain, susceptibility to infections, etc. #11. Return for follow-up in 6 months (December 26, 2024 at 10:15 AM), earlier if needed. --[address] [place] [address] documented in this encounterMarietta Memorial Hospital04-14-2025 Telephone encounter Note* Telephone Encounter - Cas Galicia MD - 05/19/2024 11:49 AM EDT New script sent. [facility] [id number] Miscellaneous Notes* Telephone Encounter - Cas Galicia MD - 05/19/2024 11:49 AM EDT New script sent. * Telephone Encounter - Lorene Perdomo MA - 05/19/2024 9:17 AM EDT Patient sent message, states insurance is no longer covering onglyza, needs new script for [email or web address] documented in this encounterResearch Medical Center-Brookside [id number] Telephone encounter Note* Telephone Encounter - Lorene Perdomo MA - 05/19/2024 9:17 AM EDT Patient sent message, states insurance is no longer covering onglyza, needs new script for [email or web address].clm [facility] [id number] History of Present illness Narrative* Cas Galicia MD - 02/27/2024 8:57 AM ESTAssociated Problem(s): COVID-19 Recent infection and continued cough and SOB. Repeat steroids and use albuterol every 4 hours x 48 then PRN. Use OTC PRN for symptoms. * Cas Galicia MD - 02/27/2024 8:15 AM EST Images from the original note were not included. Subjective Patient ID: Leana Tran is a 38 y.o. female who presents for Follow-up ([facility] er f/up/Covid + 02/20/24 /Head feel [...] (Deltasone) 10 MG tablet documented in this encounterResearch Medical Center-Brookside [id number] History of Present illness Narrative* Cas Galicia MD - 02/11/2024 10:36 AM ESTAssociated Problem(s): Type 2 diabetes mellitus with hyperglycemia, without long-term current use of insulin (CMS/HCC) Reports BS controlled and due for A1C. Stick to ADA diet and limit carbs. * Cas Galicia MD - 02/11/2024 10:36 AM ESTAssociated Problem(s): Moderate persistent asthma without complication (CMS/HCC) Breathing stable with symbicort and continue. Tachycardia from albuterol and try xopenex PRN. * Cas Galicia MD - 02/11/2024 10:36 AM ESTAssociated Problem(s): MDD (major depressive disorder), recurrent episode, mild (HCC) (CMS/HCC) Symptoms stable and follow with psychiatry. * Cas Galicia MD - 02/11/2024 10:36 AM ESTAssociated Problem(s): Edema of both legs Edema stable and elevate legs PRN. 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 * Cas Galicia MD - 02/11/2024 10:35 AM ESTAssociated Problem(s): Chronic allergic rhinitis due to pollen Symptoms stable with medication and continue. * Cas Galicia MD - 02/11/2024 10:35 AM ESTAssociated Problem(s): Autonomic dysfunction Continued symptoms and continue medication. Follow with cardiology as scheduled. * Cas Galicia MD - 02/11/2024 10:23 AM ESTAssociated Problem(s): Gastroesophageal reflux disease No symptoms * Cas Galicia MD - 02/11/2024 10:23 AM ESTAssociated Problem(s): Class 2 severe obesity due to excess calories with serious comorbidity and body mass index (BMI) of 37.0 to 37.9 in adult ([facility]) Weight loss indicated * Cas Galicia MD - 02/11/2024 9:45 AM EST Images [...] and albuterol PRN which helps. Seen by deicer inspector electric and added spiriva. PFTs abnormal. Following with pulmonology. Allergies controlled with medication. No congestion or rhinorrhea. No ROBERTS or sinus pressure. Ears not plugged or [...] hyperglycemia, without long-term current use of insulin ([facility]) - Primary Reports BS controlled and due for A1C. Stick to ADA diet and limit carbs. Relevant Medications sAXagliptin (Onglyza) 5 MG tablet Other Relevant Orders Hemoglobin A1c Gastroesophageal reflux disease No symptoms Moderate persistent asthma without complication ([facility]) Breathing stable with symbicort and continue. Use albuterol PRN. Relevant Medications levalbuterol (Xopenex HFA) 45 MCG/ACT inhaler Chronic hkao-GXTON-21 syndrome No change in symptoms and monitor. Edema of both legs Edema stable and elevate legs PRN. Class 2 severe obesity due to excess calories with serious comorbidity and body mass index (BMI) of37.0 to 37.9 in adult (CMS/HCC) Weight loss indicated documented in this encounterResearch Medical Center-Brookside [id number] Miscellaneous Notes* Telephone Encounter - Camille James - 01/02/2024 12:33 PM ESTSummary: Sample Medication Marni gave 3 Ajovy samples with a lot number of [id number] and expiration date of 07/2024. Please attachinformation to the patients chart. documented in this encounterMarietta Memorial Hospital11-27-2024 Telephone encounter Note* Telephone Encounter - Camille GarciaJuan - 01/02/2024 12:33 PM ESTSummary: Sample Medication Marni gave 3 Ajovy samples with a lot number of [id number] and expiration date of 07/2024. Please attachinformation to the patients chart. [facility]11-[facility] History of Present illness Narrative* Marni lFowers, LIO-MACY - 01/02/2024 10:30 AM EST Subjective: Patient [...] fatigue. Headaches: She is a patient with [facility]. History of classic migraine with [...] (off Ajovy) 12/2022: 1-2 migraines/month 12/2023: 1-2 roberts/week, 3-4 migraines/month (some lasting several days) Current [...] hysterectomy. 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 She [...] pain 1995 Bradycardia Chest pain Clotting disorder ([facility]) 1984 COVID Depression Diabetes mellitus ([facility]) Diabetes mellitus type 2, controlled ([facility]) Eczema 2006 Elevated troponin Fatty liver GERD [...] Medium Risk (04/08/2023) Received from [facility] Overall Financial Resource Strain (CARDIA) Difficulty of Paying Living Expenses: Somewhat hard Food Insecurity: No Food Insecurity (11/22/2023) Hunger Screening Food Insecurity - Worry: Never True Food Insecurity - Inability: Never True Transportation Needs: No Transportation Needs (04/08/2023) Received from [facility] PRAPARE - Transportation Lack of Transportation (Medical): No Lack of Transportation (Non-Medical): No Physical Activity: Insufficiently Active (04/08/2023) Received from [facility] Exercise Vital Sign Days of Exercise per Week: 4 days Minutes of Exercise per Session: 20 min Stress: No Stress Concern Present (04/08/2023) Received from [facility] Mabel of Occupational Health - Occupational Stress Questionnaire Feeling of Stress : Only a little Social Connections: Unknown (04/08/2023) Received from [facility] Social Connection and Isolation Panel [NHANES] Frequency of Communication with Friends and Family: More than three times a week Frequency of Social Gatherings with Friends and Family: Once a week Attends Anglican Services: Patient declined Active Member of Clubs or Organizations: Patient declined Attends Club or Organization Meetings: Patient declined Marital Status: Interpersonal Safety: Not At Risk (01/10/2023) Received from [facility], [facility] Humiliation, Afraid, Rape, and Kick questionnaire Fear of Current or Ex-Partner: No Emotionally Abused: No Physically Abused: No Sexually Abused: No Housing Instability: Patient Declined (04/08/2023) Received from [facility] Housing Stability Vital Sign Unable to [...] sprays into each nostril once daily. fremanezumab-vfrm (Saint Aiden StreetOVY 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) 225 mg/1.5 mL INJECT 1.5 ML [...] what day of the week it is. [facility] [place]--Neurology. Level of consciousness: alert. Knowledge: good and consistent with education. Intact short-term memory and intact long-term memory. Vocabulary is normal. 01/11/41=no idea 10/16/2000= the [employer] in [place] fell down because a plane hit them. [...] dorsiflexors: 4/5 Left foot dorsiflexors: 4/5 Right casting operator helper strength: WeakMild generalized weakness Fasciculations: None Myotonia: [...] other cognitive dysfunction. Call the office at [phone] or send a [employer] message if you develop any of these problems. #9. Ubrelvy 100 mg tablets. Take 1 tablet at the onset of a headache. You can repeat this once 2 hours later. Do not take more than 2 doses in 24-[place] [id number] to activate co-pay card. #10. Return for follow-up in 6 months, earlier if needed. Total time spent was 20 minutes: Preparing to see the patient (e.g., review of tests) Obtaining and/or reviewing separately obtained history Performing a medically appropriate examination and/or evaluation Counseling and educating the patient/family/caregiver Ordering medications, tests, or procedures Referring and communicating with other health family day carer (not separately reported) Documenting clinical information in the electronic or other health record Independently interpreting results (not separately reported) and communicating results to the patient/family/caregiver Care coordination (not separately reported) - Marni Flowers DNP, APRN-CNP 01/02/24 10:34 AM DEX Oleary 01/02/24 1034 documented in this encounterMarietta Memorial Hospital11-27-2024 Instructions* Patient Instructions* DEX Oleary - 01/02/2024 [...] other cognitive dysfunction. Call the office at [phone] or send a [employer] message if you develop any of these problems. #9. Ubrelvy 100 mg tablets. Take 1 tablet at the onset of a headache. You can repeat this once 2 hours later. Do not take more than 2 doses in 24-[place] [id number] to activate co-pay card. #10. Return for follow-up in 6 months, earlier if needed. documented in this encounterVan Wert County HospitalNVISION MEDICAL [id number] Miscellaneous Notes* Telephone Encounter - Pat Heck - 12/06/2023 6:29 AM EDTSummary: Med refill request Jefry Douglas. Pat documented in this encounterVan Wert County HospitalNVISION MEDICAL [id number] Telephone encounter Note* Telephone Encounter - Pat Glomohinder - 12/06/2023 6:29 AM EDT Summary: Med refill request Jefry Douglas encounter. Pat [facility] HospitalTencho [id number] History of Present illness Narrative* Akila Yao [...] nostril once daily., Disp: , Rfl: fremanezumab-vfrm (Saint Aiden StreetOVY 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) 225 mg/1.5 mL, INJECT 1.5 ML [...] pain 1995 Bradycardia Chest pain Clotting disorder ([facility]) 1984 COVID Depression Diabetes mellitus ([facility]) Diabetes mellitus type 2, controlled ([facility]) Eczema 2006 Elevated troponin Fatty liver GERD [...] TO CLINIC: 1 year documented in this encounterSt. Albans HospitalNight Node Software10-15-2024 History of Present illness Narrative* Akila Koch, SHELL - 11/20/2023 11:20 AM EDT Reason for [...] Diagnosis Date Noted PTSD (post-traumatic stress disorder) ([facility]) 12/24/2020 Allergic reaction to contrast dye 07/25/2021 Chronic allergic rhinitis due to pollen 12/22/2015 Anxiety 03/02/2021 Arachnoid cyst of pituitary gland 04/07/2015 Aspirin allergy 02/10/2021 Autonomic dysfunction 02/10/2021 Bleeding disorder ([facility]) 02/23/2014 Symptomatic bradycardia 12/24/2020 Cervicalgia 03/02/2021 Depression ([facility]) 12/24/2020 Type 2 diabetes mellitus with hyperglycemia, without long-term current use of insulin ([facility]) 12/24/2020 Diffuse pain 08/23/2021 Adverse food reaction 07/25/2021 Dyspareunia in female 01/12/2023 Gastroesophageal reflux disease 12/22/2015 Gross hematuria 01/12/2023 Hearing loss 12/22/2015 History of hysterectomy 02/10/2021 Hyperlipidemia ([facility]) 12/22/2015 Irritable bowel syndrome 12/22/2015 Memory difficulties 03/02/2021 Migraine without aura and without status migrainosus, not intractable ([facility]) 12/24/2020 Moderate persistent asthma without complication ([facility]) 07/25/2021 KATELIN (obstructive sleep apnea) 12/24/2020 Ovarian cyst 01/12/2023 Palpitations 10/20/2021 Decreased activity tolerance 08/23/2021 Chronic nnuq-NFGRX-18 syndrome 03/02/2021 Primary hypothyroidism ([facility]) 12/22/2015 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[facility]) 04/03/2022 Right inguinal hernia [...] 12/22/2015 Adenovirus infection 01/10/2022 Exacerbation of asthma ([facility]) 01/08/2022 Asthma ([facility]) 12/22/2015 Blood pressure instability 05/24/2021 Chest pain 12/24/2020 Drug reaction 07/25/2021 Generalized headache 12/22/2015 Hypersomnia with sleep apnea 03/02/2021 Orthostatic intolerance 08/23/2021 Orthostatic lightheadedness 05/24/2021 RSV (respiratory syncytial virus infection) 01/10/2022 Stress incontinence 01/12/2023 Syncope and collapse 05/24/2022 Acute non-recurrent pansinusitis 04/09/2023 Past Medical History: Diagnosis Date Abdominal pain, generalized Abnormality of plasma protein, unspecified Anxiety and depression ([facility]) Arachnoid cyst Celiac disease ([facility]) Chronic sinusitis Deaf, right Edema, peripheral Hernia, abdominal Herpes zoster without complication History of cardiac monitoring History of thyroid nodule Hormone imbalance Hot flashes due to surgical menopause Hypothyroid ([facility]) Insomnia, persistent Medication reaction Metabolic syndrome Mild persistent asthma without complication ([facility]) Myoclonic jerking, massive Paresthesia Post-COVID syndrome POTS (postural orthostatic tachycardia syndrome) Seasonal allergic rhinitis due to pollen Urinary hesitancy HISTORY PAST MEDICAL HISTORY SOCIAL HISTORY Past Medical History: Diagnosis Date Abdominal pain, generalized Abnormality of plasma protein, unspecified deficiency (easy bleeder) Anxiety and depression ([facility]CC) Arachnoid cyst in brain (2015) Asthma ([facility]) Celiac disease ([facility]) Chronic sinusitis Deaf, right Depression ([facility]) Dyspareunia in female Edema, peripheral Gastroesophageal reflux disease Hernia, abdominal Herpes zoster without complication History of cardiac monitoring Pt currently has cardiac heart monitor 06/27/2022 History of hysterectomy History of thyroid nodule Hormone imbalance Hot flashes due to surgical menopause Hypothyroid ([facility]) Insomnia, persistent Medication reaction Metabolic syndrome Mild persistent asthma without complication ([facility]) Myoclonic jerking, massive Ovarian cyst Paresthesia Post-COVID syndrome POTS (postural orthostatic tachycardia syndrome) Right inguinal hernia Seasonal allergic rhinitis due to pollen Type 2 diabetes mellitus with hyperglycemia, without long-term current use of insulin ([facility] [facility] Urinary hesitancy Vitamin D [...] CONTRAST OTHER SURGICAL HISTORY 2014 uterine ablation HI LAP,CHOLECYSTECTOMY 2009 HI LAPAROSCOPY W/LYSIS OF ADHESIONS 2010 SALPINGECTOMY Bilateral [...] nursing note reviewed. Exam conducted with a grain ii farmworker present. 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. She was blue and her co-workers [...] Symbicort with spacer. Add Spiriva [facility] in [place]. Technique. We agreed she would use Symbicort [...] spirometry and skin testing. documented in this [facility]09-17-2024 History of Present illness Narrative* Cas Galicia MD - 10/23/2023 2:04 PM EDT The patient needs a letter stating she requires a medical exception from the influenza vaccination due to a history of anaphylactic reactions to vaccines. documented in this [facility]09-04-2024 History of Present illness Narrative* Cas Galicia MD - 10/10/2023 9:42 AM EDTAssociated Problem(s): Type 2 diabetes mellitus with hyperglycemia, without long-term current use of insulin (CMS/HCC) Reports BS controlled and A1C 5.6. Stick to ADA diet and limit carbs. Insulin elevated and stop januvia. Start ozempic. * Cas Galicia MD - 10/10/2023 9:42 AM EDTAssociated Problem(s): Moderate persistent asthma without complication (CMS/HCC) Breathing stable with symbicort and continue. Use albuterol PRN. * Cas Galicia MD - 10/10/2023 9:42 AM EDTAssociated Problem(s): Edema of both legs Edema stable and elevate legs PRN. * Cas Galicia MD - 10/10/2023 9:42 AM EDTAssociated Problem(s): Chronic panv-KNJEV-38 syndrome No change in symptoms and monitor. * Cas Galicia MD - 10/10/2023 9:42 AM EDTAssociated Problem(s): Chronic allergic rhinitis due to pollen Symptoms stable with medication and continue. * Cas Galicia MD - 10/10/2023 9:00 AM EDT Images [...] with medication. No congestion or rhinorrhea. No ROBERTS or sinus pressure. Ears not plugged or [...] use of insulin (CMS/[facility]) - Primary Reports BS controlled and A1C 5.6. Stick to ADA diet and limit carbs. Insulin elevated and stop januvia. Start ozempic. Relevant Medications semaglutide (Ozempic, 0.25 or 0.5 MG/DOSE,) 2 MG/1.5ML solution pen-injector Moderate persistent asthma without complication (CMS/HCC) Breathing stable with symbicort and continue. Use albuterol PRN. Chronic rxyw-OPQRS-42 syndrome No change in symptoms and monitor. Edema of both legs Edema stable and elevate legs PRN. documented in this encounterResearch Medical Center-Brookside [id number] Instructions* Patient Instructions* Fuentes Marinelli MD - 10/01/2023 10:04 AM EDT Continue Amicar prior to dental extraction FFP for major surgery. RTC in 12 months - cbc, cmp documented in this encounterBrown Memorial Hospital08-26-2024 History of Present illness Narrative* Fuentes Marinelli MD - 10/01/2023 9:45 AM EDT Images from the original note were not included. 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 Prior exam for reference. 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 No date: REMOVAL GALLBLADDER No date: TUBAL LIGATION HX Social History Tobacco Use Smoking status: Never Passive exposure: Past Smokeless tobacco: Never Vaping Use Vaping status: Never Used Substance Use Topics Alcohol use: Not Currently Drug use: Not Currently FAMILY HISTORY Problem Relation Age of Onset Diabetes Mother uncontrolled Hypertension Mother Heart Attack Mother [place] at age 51 Cardiomyopathy Mother at age [...] which included preparing to see the patient, djqm-uv-aspc patient care, completing clinical documentation, performing a medically appropriate examination, ordering medications, tests, or procedures, and communicating results to the patient/fam jair/caregiver. Fuentes Marinelli MD, CPE Hematology and Oncology Services Provided at: [place], [place] Scribe Attestation: This note was scribed by Yari Fuchs on October 01, 2023 under the direction and supervision of Dr. Fuentes Marinelli. I attest that all of the information documented is correct to the best of my knowledge. Provider Attestation: I, Fuentes Marinelli MD, attest that all information documented by the above scribe is correct, and was supervised by me and under my direction. CC: Cas Cronin documented in this encounterBrown Memorial Hospital08-21-2024 History of Present illness Narrative* Cas Galicia MD - 09/26/2023 10:10 AM EDTAssociated Problem(s): Allergic reaction Recent reaction and improved with treatment. Reactions getting worse and refer to deicer inspector electric. * Cas Galicia MD - 09/26/2023 9:15 AM EDT Images [...] and faster symptom onset. Requests referral to deicer inspector electric. Review of Systems Respiratory: Negative for cough, [...] treatment. Reactions getting worse and refer to deicer inspector electric. Relevant Orders Ambulatory referral to Allergy documented in this encounterResearch Medical Center-Brookside [id number] History of Present illness Narrative* Marni Flowers APRN-MISCELLANEOUS MACHINE OPERATOR - 07/05/2023 3:30 PM EDT Subjective: Patient [...] fatigue. Headaches: She is a patient with [facility]. History of classic migraine with [...] hysterectomy. 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 She has found that the lack [...] pain 1995 Bradycardia Chest pain Clotting disorder ([facility]) 1984 COVID Depression Diabetes mellitus ([facility]) Diabetes mellitus type 2, controlled ([facility]) Eczema 2006 Elevated troponin Fatty liver GERD [...] Medium Risk (04/08/2023) Received from [facility] Overall Financial Resource Strain (CARDIA) Difficulty of Paying Living Expenses: Somewhat hard Food Insecurity: No Food Insecurity (05/08/2023) Hunger Screening Food Insecurity - Worry: Never True Food Insecurity - Inability: Never True Transportation Needs: No Transportation Needs (04/08/2023) Received from [facility] PRAPARE - Transportation Lack of Transportation (Medical): No Lack of Transportation (Non-Medical): No Physical Activity: Insufficiently Active (04/08/2023) Received from [facility] Exercise Vital Sign Days of Exercise per Week: 4 days Minutes of Exercise per Session: 20 min Stress: No Stress Concern Present (04/08/2023) Received from [facility] [place] [employer] - Occupational Stress Questionnaire Feeling of Stress : Only a little Social Connections: Unknown (04/08/2023) Received from [facility] Social Connection and Isolation Panel [NHANES] Frequency of Communication with Friends and Family: More than three times a week Frequency of Social Gatherings with Friends and Family: Once a week Attends Anglican Services: Patient declined Active Member of Clubs or Organizations: Patient declined Attends Club or Organization Meetings: Patient declined Marital Status: Interpersonal Safety: Not At Risk (01/10/2023) Received from [facility], [facility] [place] Safety & Environment Within [...] Housing Instability: Patient Declined (04/08/2023) [facility] Housing Stability Vital Sign Unable to Pay for Housing in the Last Year: Patient declined Number of Places Lived in the Last Year: 1 In the last 12 months, was there a time when you did not have a steady place to sleep or slept in ashelter (including now)?: Patient declined Family History Problem [...] sprays into each nostril once daily. fremanezumab-vfrm (Saint Aiden StreetOVY 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) 225 mg/1.5 mL Inject 1.5 mL [...] what day of the week it is. [facility] [place]--Neurology. Level of consciousness: alert. Knowledge: good and consistent with education. Intact short-term memory and intact long-term memory. Vocabulary is normal. 01/11/41=no idea 10/16/2000= the [email or web address] towers in [place] fell down because a plane hit them. [...] dorsiflexors: 4/5 Left foot dorsiflexors: 4/5 Right casting operator helper strength: WeakMild generalized weakness Fasciculations: None Myotonia: [...] post-, etc again. [place]. She has been working at least 24-40 hours a week. She is doing 12 hour shifts (unless she is picking up extra). 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 She has found that the lack [...] tablet Nervous and Auditory Autonomic dysfunction COVID-19 dottie bashir manifesting chronic neurologic symptoms Word finding difficulty [...] other cognitive dysfunction. Call the office at [phone] or send a [employer] message if you develop any of these problems. #9. Ubrelvy 100 mg tablets. Take 1 tablet at the onset of a headache. You can repeat this once 2 hours later. Do not take more than 2 doses in 24-[place] [address] [place]-pay card. #10. Return for [...] procedures Referring and communicating with other health family day carer (not separately reported) Documenting clinical information in the electronic or other health record Independently interpreting results (not separately reported) and communicating results to the patient/family/caregiver Care coordination (not separately reported) - Manri Flowers DNP, DEX 07/05/23 2:16 PM DEX Oleary 07/05/23 1417 documented in this encounterMarietta Memorial Hospital05-30-2024 Instructions* Patient Instructions* DEX Oleary [...] other cognitive dysfunction. Call the office at [phone] or send a [employer] message if you develop any of these problems. #9. Ubrelvy 100 mg tablets. Take 1 tablet at the onset of a headache. You can repeat this once 2 hours later. Do not take more than 2 doses in 24-[place] [address] to [place] co-pay card. #10. Return for follow-up in 6 months (January 02, 2024 at 10:15 AM), earlier if needed. --increase zonisamide back to 200 mg, if headaches do not decrease, switch from Ajovy to Qulipta after 1 month documented in this encounterSt. Albans HospitalVisys Hutzel Women'S [id number] History of Present illness Narrative* DEX Jameson [...] 2.48 She has been to referred to [facility] for symptoms from COVID-19. Dizzy and [...] nostril once daily., Disp: , Rfl: fremanezumab-vfrm ([facility] A[facility] StreetOVY 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) 225 mg/1.5 mL, Inject 1.5 mL [...] pain 1995 Bradycardia Chest pain Clotting disorder ([facility]) 1984 COVID Depression Diabetes mellitus ([facility]) Diabetes mellitus type 2, controlled ([facility]) Eczema 2006 Elevated troponin Fatty liver GERD [...] DEX Jameson 05/08/23 0902 documented in this encounterMarietta Memorial Hospital08-28-2023 Instructions* Patient Instructions* Fuentes Marinelli MD - 10/02/2022 9:51 AM EDT Continue Amicar prior to dentist appointment. RTC in 12 months - cbc, cmp documented in this encounterBrown Memorial Hospital08-28-2023 History of Present illness Narrative* Fuentes Marinelli MD - 10/02/2022 9:45 AM EDT Images from the original note were not included. 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 Fuentes Marinelli MD, CPE Hematology and Oncology Services Provided at: [place], [place] CC: Cas Cronin documented in this encounterBrown Memorial Hospital08-01-2023 Hospital Discharge instructions Patient Education 09/05/2022 09:06:17 Kidney Stones, Aezp-uo-Hfbf Kidney Stones Kidney stones are rock-like masses [...] Follow these instructions at home: Medicines Take nqps-axe-kbigrls and prescription medicines only as told by [...] provider. Document Revised: 09/26/2021 Document Reviewed: 09/26/2021 [employer] Patient Education 2022 [employer]. Follow Up Care 02/28/2022 09:04:41 With:TEJ HEREDIALORAINE, URL Address: [address] [place] [address] When: Unknown [facility] 03-29-2023 Miscellaneous Notes* Telephone Encounter - Yury Collins MA - 05/03/2022 11:43 AM EDT Images from the original note were not included. documented in this encounterBrown Memorial Hospital03-22-2023 History of Present illness Narrative* Bhargavi Ramesh PA-C - 04/26/2022 1:00 PM EDT Headache Center - Follow up Virtual Visit During this COVID-19 pandemic, patient's headache clinic evaluation was scheduled as a virtual visit using the following platform Zoom - patient currently located in [place] Leana Tran was identified by name and [...] visit. Either the patient or their legal financial service representative has been informed of therisks [...] thrombosis. Unremarkable MRA brain and MRA neck. Confidential Investigator: [facility] Transcribe Date/Time: Mar 31 2016 [...] change which could potentially contribute to headache. Confidential Investigator: [facility] Transcribe Date/Time: Jun 27 2021 [...] # 1.10 - 3.70 k/uL 1.67 Absolute Bland # 0.10 - 1.20 k/uL 0.37 Absolute Eos # 0.00 - 0.44 k/uL 0.19 Basophils Absolute 0.00 - 0.20 k/uL 0.04 Absolute Immature Granulocyte 0.00 - 0.30 k/uL 0.04 Review of Systems: Review of system: unchanged from the previous visit (sleep patterns, mood, energy, appetite, stress, exercising). Physical Examination: Vital Signs: [facility] 2015 General: well appearing, in no acute distress, alert Pain Behaviors: no pain behaviors observed Neurological: Mental Status: Alert and oriented to person, place and time. Affect is normal. Speech is spontaneous and fluent without dysarthria. 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 memory, cognition and general fund of knowledgeare [...] 15 minutes Bhargavi Ramesh PA-C Headache Section [facility] April 26, 2022 documented in this encounterBrown Memorial Hospital03-13-2023 Instructions* Patient Instructions* Fuentes Marinelli MD - 04/17/2022 5:31 PM EDT Keep prior appointment September documented in this encounterBrown Memorial Hospital03-13-2023 History of Present illness Narrative* Fuentes Marinelli MD - 04/17/2022 5:26 PM EDT AMBULATORY [...] September Total Time Spent: 5 minutes Fuentes Marinelli MD documented in this encounterBrown Memorial Hospital02-27-2023 Instructions* Patient Instructions* Fuentes Marinelli MD - 04/03/2022 11:06 AM EST Platelet electron microscopy pending drawn Call results when available - anticipate 2 weeks Consider functional medicine referral for DM and PCOS Keep appointment with Dr. Stephon Cronin's group for POTS Trial of Amicar prior to dentist appointment. documented in this encounterBrown Memorial Hospital02-27-2023 History of Present illness Narrative* Fuentes Marinelli MD - 04/03/2022 10:50 AM EST Images from the original note were not included. 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 Her step- father has also . Updated Visit, November 10, 2021: Lenaa is 35 yo and is having genetic [...] which included preparing to see the patient, rjwz-bu-fuwh patient care, completing clinical documentation, obtaining and/or reviewing separately obtained history, performing a medically appropriate examination, counseling and educating the pat ient/family/caregiver, ordering medications, tests, or procedures, independently interpreting results (not separately reported) and communicating results to the patient/family/caregiver. Fuentes Marinelli MD, CPE Hematology and Oncology Services Provided at: [place], [place] CC: Cas Cronin [facility] Note* Elizabeth Rodriges MA - 04/03/2022 10:43 AM EST Patient is still bruising. Elizabeth Rodriges MA documented in this [facility] Miscellaneous Notes* Telephone Encounter - Marlon Plaza - 04/03/2022 9:32 AM EST Images from the original note were not included. documented in this [facility] Miscellaneous Notes* Telephone Encounter - Manda León RN - 03/21/2022 10:43 AM EST Received call from pt stating she was not able to get her PLT lab test done in [place] d/t them no longer doing them on or fridays so she needs to move out her appt with Dr Salas so she has timeto try again to get lab done. Pt transferred to medical front desk specialist to reschedule f/u appt. Manda León RN [facility] this [facility] Hospital Discharge instructions Patient Education 02/28/2022 08:38:24 [...] reconstructed. Follow these instructions at home: Take jkfn-gbo-gijgbpz and prescription medicines only as told by [...] 02/18/2016 Document Revised: 09/04/2018 Document Reviewed: 09/04/2018 [employer] Patient Education [employer] Follow Up Care 12/22/2021 14:08:59 With:LORAINE RUBALCAVA PA-C, URL Address: [address] [place] [address] When: Unknown [facility] 01-23-2023 History of Present illness Narrative* Tesfaye Whitman, [facility] - 02/27/2022 10:32 AM EST Refill Authorization Consent Leana Tran was encountered by text or mychart message to obtain consent for pharmacist managed refill authorization. Patient gives consent to the authorization of prescriptions by a pharmacist. Tesfaye Whitman RPh 02/27/2022 documented in this encounterBrown Memorial Hospital01-20-2023 Miscellaneous Notes* Telephone Encounter - Vikash Oreilly RN - 02/24/2022 3:15 PM EST PA submitted via coverVGTI [place]. Kurt LEANA TRAN ([place]: [id number]) Your information has been submitted to [employer]. To check for an updated outcome later, reopen thisPA request from your dashboard. If [facility] has not responded to your request within 24 hours, contact [facility] at . If you think there may be a problem with your PA request, use our live chat feature at the bottom right. Vikash Oreilly RN February 24, 2022 3:16 PM documented in this encounterBrown Memorial Hospital01-16-2023 Miscellaneous Notes* Telephone Encounter - Fuentes Marinelli MD - 02/20/2022 8:50 AM EST Ok with me * Telephone Encounter - Manda León RN - 02/20/2022 8:43 AM EST Informed Lindsey of Dr Salas's response. Lindsey states that [place] will only except if pt was drawn on pt was drawn on Sunday so they are sending it out today to [place], unless Dr Salas would like pt to come back in for a redraw so it can be sent to [place]. Manda León RN * Telephone Encounter - Fuentes Marinelli MD - 02/17/2022 5:23 PM EST Colindres would be good. * Telephone Encounter - Manda León RN - 02/17/2022 4:03 PM EST Received call from Melodie at [facility] in [place] stating pt had her platelet transmission lab done there but it is a lab test that they send out to other labs and they wanted to know if Dr Salas has a preference on what lab they send it to d/t different labs running the test different ways. ZACH: Please advise. Manda León RN documented in this encounterBrown Memorial Hospital01-13-2023 Miscellaneous Notes* Telephone Encounter - Loraine Huggins [facility] - 02/17/2022 9:45 AM EST Records [...] pt up with referral to her preferred aerodynamic consultant. Thank you. Manda León RN * Telephone Encounter - Manda León RN - 02/16/2022 1:28 PM EST Received call from pt stating Dr Salas told her to see aerodynamic consultant but their office needs a referral. ZACH: Order pending, please review and sign. Manda León, RN documented in this encounterBrown Memorial Hospital01-09-2023 History of Present illness Narrative* Meena Grissom MD - 02/13/2022 8:28 PM EST Discussed with scheduling, appointment will be rescheduled. Patient logged in late- had technical issues with Zoom. documented in this encounterBrown Memorial Hospital01-06-2023 Instructions* Patient Instructions* Fuentes Marinelli MD - 02/10/2022 3:00 PM EST Platelet electron microscopy Call results when available Consider functional medicine referral for DM and PCOS documented in this encounterBrown Memorial Hospital01-06-2023 History of Present illness Narrative* Fuentes Marinelli MD - 02/10/2022 2:00 PM EST Images from the original note were not included. 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 Fuentes Marinelli MD, CPE Hematology and Oncology Services Provided at: [facility], [place], [place] CC: Cas Galicia documented in this encounterBrown Memorial Hospital12-28-2022 Miscellaneous Notes* Telephone Encounter - Fanny Green LPN - 02/01/2022 10:42 AM EST Images from the original note were not included. documented in this encounterBrown Memorial Hospital12-19-2022 Hospital Discharge instructions Patient Education 01/23/2022 [...] Up Care 12/22/2021 14:21:18 With:LORAINE RUBALCAVA Address: [address] [place] [address]. [place] [address] Business (1) When:6 weeks Comments:Call for followup appointment in about six weeks. As discussed, PONCE Hargrove can further follow upon the left kidney abnormality noted on the kidney ultrasound. 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 [facility]12-12-2022 History of Present illness Narrative* Bhargavi Ramesh PA-C - 01/16/2022 9:00 AM EST [facility] Center - Follow up Virtual Visit During this COVID-19 pandemic, patient's headache clinic evaluation was scheduled as a virtual visit using the following platform Zoom - patient currently located in [place] Leana Tran was identified by name and [...] thrombosis. Unremarkable MRA brain and MRA neck. Confidential Investigator: [facility] Transcribe Date/Time: Mar 31 2016 [...] change which could potentially contribute to headache. Confidential Investigator: [facility] Transcribe Date/Time: Jun 27 2021 [...] due to nature of virtual visit. [facility] 2015 General: well appearing, in [...] 10 minutes Bhargavi Ramesh PA-C Headache Section [facility] January 16, 2022 documented in this encounterBrown Memorial Hospital11-28-2022 History of Present illness Narrative* Jennyangie Gardiner Suha - 01/02/2022 4:23 AM EST Sleep Study Check-In Documentation Date: January 02, 2022 Name: Leana Tran Patient was accompanied by Self. Location: [place] Latex allergy: Yes Tape allergy: No Current medications were reviewed with the patient:Yes Sleep aid taken by patient for the sleep study: [place] of sleep aid: Not Applicable Procedure was [...] test results Jenny Borden documented in this encounterBrown Memorial Hospital11-16-2022 Evaluation + Plan note Diagnostic Tests Pending * Urine Cytology ([facility]) 12/21/21 [facility] 11-16-2022 Hospital Discharge instructions Patient Education [...] Follow these instructions at home: Medicines Take warw-krl-ukjipzf and prescription medicines only as told by [...] or the blood stops without treatment. Take ubyh-xem-azasycb and prescription medicines only as told by your health care provider. Drink enough fluid to keep your urine clear or pale yellow. This information is not intended to replace advice given to you by your health care provider. Make sure you discuss any questions you have with your health care provider. Document Released: 01/22/2006 Document Revised: 06/18/2019 Document Reviewed: 02/24/2017 [employer] Patient Education 2020 [employer] Follow Up Care 11/28/2021 10:05:42 With:[facility] Matthew Address: [place] [address] Business (1) When: Unknown Comments:our red hat linux administrator will be contacting you for follow-up [facility] Jim 11-15-2022 Miscellaneous Notes* Telephone Encounter - CARINE Carrillo - 12/20/2021 10:01 AM EST Results left on patient voicemail. Leana Tran's bleeding disorders panel through [employer] was non- diagnostic or negative for a pathogenic variant. 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 This is a common polymorphism in the general population present in ~10% of individuals of white ancestry and ~1/3 of those of South ancestry. This polymorphism is not expected to contribute to disease risk for the patient. Please see [employer] message for further discussion. CARINE Carrillo Licensed, Certified Genetic Counselor Epic CC: Dr. Fuentes Craig documented in this encounterBrown Memorial Hospital11-10-2022 History of Present illness Narrative* Keira Harper - 12/15/2021 7:41 AM EST ACTIGRAPHY DEVICE # [id number] Date shipped out 12/15/2021 [employer] MAIL OUT TRACKING NUMBER [id number] [employer] RETURN TRACKING NUMBER [id number], Amber documented in this encounterBrown Memorial Hospital10-28-2022 History of Present illness Narrative* Ofelia [...] Procedure Finish Time: 933 documented in this encounterBrown Memorial Hospital10-27-2022 Miscellaneous Notes* Telephone Encounter - Lindsey [...] 30, 2021 8:33 PM documented in this encounterBrown Memorial Hospital10-14-2022 Instructions* Patient Instructions* Fuentes Marinelli MD - 11/18/2021 2:09 PM EDT 1. RTC and Repeat exam in 3 months - no labs 2. Review platelet genetics on return. documented in this encounterBrown Memorial Hospital10-14-2022 History of Present illness Narrative* Fuentes Marinelli MD - 11/18/2021 1:45 PM EDT Images from the original note were not included. 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 Fuentes Marinelli MD, CPE Hematology and Oncology Services Provided at: [place], [place] CC: Cas Grayson documented in this encounterBrown Memorial Hospital10-12-2022 Instructions* Patient Instructions* Meena Grissom MD [...] schedule your sleep study please call the [facility] at [phone]. The [phone] phone number will be answered by the [...] you work rotating shifts, ask your manager environmental affairs to schedule a natural, clockwise rotation. This [...] alertness. A longer nap beforereporting for a shift lab technician is also beneficial. Exposure to bright light on the job can improve alertness during shift lab technician work. Arrange for someone to pick you up after a shift lab technician, or take a bus or cab home. [...] for insomnia. The cost is $40. Use www.Youxiduo which to access the [facility] Wellness website to purchase the [...] provider and give them the CPT code: 88091 You will be asked to wear the [...] about your actigraphy device, please call the tool technician at: [phone]( During Hours: 8am-4:30pm) ? -Discussed pathophysiology of Sleep paralysis, and possible triggering factors which include sleep deprivation, untreated obstructive sleep apnea. Other possible etiologies include circadian shift work,anxiety disorders and medications. - Follow up in 2 months documented in this encounterBrown Memorial Hospital10-12-2022 Miscellaneous Notes* Telephone Encounter - Zuleyka Pacheco RN - 11/16/2021 1:04 PM EDT Images from the original note were not included. * Telephone Encounter - Zuleyka Pacheco RN - 11/16/2021 1:03 PM EDT Images from the original note were not included. documented in this encounterBrown Memorial Hospital10-12-2022 History of Present illness Narrative* Meena Grissmo MD - 11/16/2021 8:59 AM EDT Images from the original note were not included. [facility] New Patient [...] or near accidents due to drowsy drivin [place] Sleepiness Scale 11/13/2021 Score 7 (No daytime [...] (Discontinued) PRIOR SLEEP STUDIES: Sleep centre at [place] (report not available at time of consultation) [...] uncontrolled Hypertension Mother Heart Attack Mother First [place] at age 51 Cardiomyopathy Mother at age [...] you work rotating shifts, ask your manager environmental affairs to schedule a natural, clockwise rotation. This [...] alertness. A longer nap beforereporting for a shift lab technician is also beneficial. Exposure to bright light on the job can improve alertness during shift lab technician work. Arrange for someone to pick you up after a shift lab technician, or take a bus or cab home. [...] for insomnia. The cost is $40. Use [employer] which to access the [facility] website to purchase the [...] which included preparing to see the patient, hbgx-kn-cmda patient care, performing a medically appropriate examination, counseling and educating the patient/family/caregiver and ordering medications/devices. documented in this encounterBrown Memorial Hospital10-11-2022 Miscellaneous Notes* Telephone Encounter - Fanny Green LPN - 11/15/2021 3:55 PM EDT Images from the original note were not included. documented in this encounterBrown Memorial Hospital10-08-2022 History of Present illness Narrative* Fuentes Marinelli MD - 11/12/2021 7:46 AM EDT AMBULATORY [...] evaluation Total Time Spent: 10 minutes Fuentes Marinelli MD documented in this encounterCleveland [id number] Miscellaneous Notes* Telephone Encounter - Landen Mahmood APRN.CNP - 11/07/2021 4:19 PM EDT Order for nebulizer supplies [facility]. Call to them inquiring about any additional information they may need. Landen Mahmood APRN.MACY documented in this encounterBrown Memorial Hospital10-03-2022 Miscellaneous Notes* Telephone Encounter - Lindsey Hassan RN - 11/07/2021 3:29 PM EDT Contacted [facility]. Order has not been received. Discussed with Javier from [facility]hythm[facility] lab. Order is currently being processed. Filomena RN documented in this [facility] Instructions* Patient Instructions* Fuentes Marinelli MD - 11/03/2021 11:38 AM EDT 1. Need Mammogram results from [facility] 2. Proceed with genetic testing for platelet disorder 3. Call next week to review mammogram results documented in this [facility] History of Present illness Narrative* Fuentes Marinelli MD - 11/03/2021 11:23 AM EDT Images [...] other physicians involved in patient's care: Cas Galicia (PCP), Rajinder Collins (surgery), [...] workup. PLAN: 1. Need Mammogram results from [facility] 2. Proceed with genetic testing for platelet [...] which included preparing to see the patient, jnzw-oe-jmkd patient care, completing clinical documentation, obtaining and/or reviewing separately obtained history, performing a medically appropriate examination, counseling and educating the pat ient/family/caregiver, ordering medications, tests, or procedures, independently interpreting results (not separately reported) and communicating results to the patient/family/caregiver. Fuentes Marinelli MD, [facility] Hematology and Oncology Services Provided at: [place], [place] CC: Cas Galicia documented in this encounterBrown Memorial Hospital09-25-2022 Miscellaneous Notes* Telephone Encounter - Fuentes Marinelli MD - 10/30/2021 9:09 AM EDT I don't think I need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 zonisamide (ZONEGRAN) [...] U/L - 73 Pulmonary Function Testing Read ([facility]) 03/07/21 SUMMARY: 1. The respiratory therapist [...] daily nocturnal symptoms- advised follow-up with local stitcher tape controlled machine. Continue Symbicort, Albuterol Gastroesophageal reflux disease, unspecified whether esophagitis present Comment: Controlled, continue Pepcid as above Virtual visit in 3 months I spent a total of 60 minutes on the date of the service which included preparing to see the patient, assp-fk-vbjj patient care, completing clinical documentation, obtaining and/or reviewing separately obtained history, performing a medically appropriate examination, counseling and educating the pat ient/family/caregiver and ordering medications, tests, or procedures. Henny Rushing MD documented in this encounterBrown Memorial Hospital06-17-2022 History of Present illness Narrative* Yan Bass MD - 07/22/2021 2:33 PM EDT HEMATOLOGY FOLLOW UP Elements in this clinic note that are critical to medical decision making have been carefully reviewed and included from my prior clinic note dated: July 01, 2021 July 22, 2021 PCP and other physicians involved in patient's care: Cas Galicia (PCP), Rajinder Collins (surgery), [...] since last visit. She has met withmedical mixing place supervisor and is willing to undertake additional testing [...] which included preparing to see the patient, ymhj-dx-zuvu patient care, completing clinical documentation, obtaining and/or reviewing separately obtained history, performing a medically appropriate examination, counseling and educating the pat ient/family/caregiver, ordering medications, tests, or procedures, independently interpreting results (not separately reported) and communicating results to the patient/family/caregiver. CC: Cas Galicia documented in this encounterBrown Memorial Hospital06-16-2022 History of Present illness Narrative* Sai Perez MD - 07/21/2021 1:13 PM EDT Images from the original note were not included. Heart and Vascular [facility] Department of Cardiovascular Medicine SECTION OF CLINICAL CARDIOLOGY OUTPATIENT VISIT DATE July 21, 2021 OUTPATIENT VISIT TYPE NEW PRIMARY CARE PHYSICIAN: Cas Galicia MD ([facility]) [address] [place] [address] REFERRING PHYSICIAN: Peter Knight [address] [facility] [address] CHIEF COMPLAINT: Symptomatic bradycardia and hypotension HISTORY [...] without significant abnormalities. Shewas told by one aerodynamic consultant to wear compression stockings and increase fluid [...] uncontrolled Hypertension Mother Heart Attack Mother First [place] at age 51 Cardiomyopathy Mother at age [...] (FLONASE) 50 mcg/actuation nasal spray Use 1 [place] in each nostril twice daily. zonisamide (ZONEGRAN) [...] Christy Santos MD Cardiovascular Medicine Fellow 07/21/2021 [facility] STAFF PHYSICIAN NOTE OF PERSONAL [...] of blood pressures] -Review in the [facility] Sai Perez M.D. Huang [facility]rera Department of Cardiovascular Medicine Heart and Vascular [facility] Desk [place] [address] Office [phone] extension [phone] Office Appointments: [phone] extension [phone] documented in this encounterBrown Memorial Hospital06-15-2022 History of Present illness Narrative* Jackelyn Marques MD - 07/20/2021 7:56 AM EDT NA documented in this encounterBrown Memorial Hospital06-14-2022 Miscellaneous Notes* Result QuickNote - Jackelyn Marques MD - 07/19/2021 9:34 AM EDT Kerri Bean, I reviewed the test results. Considering the [...] well. Dr. Marques Endocrinology documented in this encounterBrown Memorial Hospital06-10-2022 History of Present illness Narrative* CARINE Sparks - 07/15/2021 1:49 PM EDT [facility] Consultation Note Genetic Counselor: Dayanna Hawley MS, [facility], PhD Patient: Leana Tran Patient Name and confirmed at initiation of visit. The patient provided consent for a virtual visit by [employer] Mehul. HIGH LEVEL SUMMARY: The patient's personal [...] eyes The patient's maternal ancestors are of Afghan descent and paternal ancestors are of descent. There is no Ashkenazi Christianity ancestry. There is no known consanguinity. A [...] largely asymptomatic. (Piter pires 2013. PubMed ID: [id number]; Saeid 2005. PubMed ID: [id number]; Saleem 2013. PubMed ID: [id number]). Conditions that can lead to acquired platelet function disorders include liver disease (Too et al. 2010. PubMed ID: [id number]), uremia (Johnathangert and Bobby. 1998. PubMed ID: [id number]), myeloproliferative disorders (Aisha et al. 2016. PubMed ID: [id number]), and diabetes mellitus (Steven et al. 2004. PubMed ID: [id number]). In addition, use of aspirin and other medications are some of the most common causes of platelet dysfunction. Defects in platelet function include problems with aggregation/coagulation, adhesion and secretion from platelet storage organelles (Bradley et al. 2012. PubMed ID: [id number]). In severe cases, bleeding episodes can be [...] the following testing: bleeding disorder panel through [employer]. The bleeding disorder panel includes ABCG5, ABCG8, ACTN1, GKKTYQ80, ANKRD26, ANO6, AP3B1, ZAFP6D6, CD36, CYCS, DTNBP1, F10, F11, F12, F13A1, [...] greater than 50% of which was spent wasa-ff-ssxp counseling. This plan is being carried out under the oversight of Dr. Jose Craig. This note will also be sent to the referring provider via the electronic medical record. Dayanna Hawley MS, [facility], PhD Licensed, Certified Genetic Counselor EPIC CC: Dr. Yan Craig documented in this encounterBrown Memorial Hospital06-09-2022 History of Present illness Narrative* Aldo Ann MD - 07/14/2021 10:57 AM EDT Images from the original note were not included. Otolaryngology - Head and Neck Surgery Head and Neck Mabel, [facility] NOTE Chief Complaint: Patient presents [...] (FLONASE) 50 mcg/actuation nasal spray Use 1 [place] in each nostril twice daily. zolpidem (AMBIEN) [...] placed This note was partially generated using [employer] voice recognition system. Please note that occasional mobile practice lead errors may be made. Aldo Ann MD documented in this encounterBrown Memorial Hospital06-09-2022 Nurse Note* TANYA Stacy - 07/14/2021 10:41 AM EDT Tobacco Use: Never Was smoking cessation packet given? N/A - Patient is a non-smoker or quit >1 year ago. Was a referral initiated?N/A Patient is a non-smoker documented in this encounterBrown Memorial Hospital06-01-2022 History of Present illness Narrative* Tracee Mcintyre MD - 07/06/2021 1:14 PM EDT [facility] - NEW PATIENT EVALUATION Cas Galicia MD [address] [facility] [address] Thank you for refering Ms. Tran to our clinic today. 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 She is seen alone. 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 Left pathological reflexes: Francisco's absent. Coordination Zwcyky-sy-yrif, rapid alternating movements and enee-zq-qjcv normal bilaterally without dysmetria. Gait Casual gait [...] Disorders Medication Schedule: Level of service : 06019 (30-44 min). Time spent 44 min on the day of service, which included preparing to see the patient, hqxs-wd-jtrq patient care, completing clinical documentation, obtaining and/or [...] Bhargavi Ramesh PA-C today. documented in this encounterBrown Memorial Hospital05-31-2022 Miscellaneous Notes* Result QuickNote - Jackelyn Marques MD - 07/05/2021 8:16 AM EDT Ms. Tran, I reviewed the test results. The cortisol cannot be interpreted as it was drawn too late in the morning. Please repeat at around 7-8AM, labs were ordered. Wish you well. Dr. Marques Endocrinology documented in this encounterBrown Memorial Hospital05-27-2022 History of Present illness Narrative* Yan Bass MD - 07/01/2021 10:30 AM EDT HEMATOLOGY FOLLOW UP Elements in this clinic note that are critical to medical decision making have been carefully reviewed and included from my prior clinic note dated: June 10, 2021 July 01, 2021 PCP and other physicians involved in patient's care: Cas Galicia (PCP), Rajinder Collins (surgery), [...] which included preparing to see the patient, klca-go-fulg patient care, completing clinical documentation, obtaining and/or reviewing separately obtained history, performing a medically appropriate examination, counseling and educating the pat ient/family/caregiver, ordering medications, tests, or procedures, independently interpreting results (not separately reported) and communicating results to the patient/family/caregiver. CC: Cas Galicia documented in this encounterBrown Memorial Hospital05-23-2022 Instructions* Patient Instructions* Peter Knight APRN.[facility] - 06/27/2021 4:08 PM EDT Please call to arrange for consults, future appointments, and tests: ED evaluation for worst headache of her life with associated neuro deficit. 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 documented in this encounterBrown Memorial Hospital05-23-2022 History of Present illness Narrative* Peter Knight APRN.CNP - 06/27/2021 11:00 AM EDT Images from the original note were not included. [facility] Follow-Up/Established Patient Visit Consulting Provider: SELF Individuals who were included in, or assisted with the encounter were: Leana Tran Peter Knight APRN.CNP Chief Complaint/Issues: Leana Tran is a 35 year old female seen in the [facility] for: 1. Established patient 2. 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 She was evaluated by aerodynamic consultant and there was mention of placing a [...] not wear, she was told by a aerodynamic consultant in her local area to wear compression [...] No pes cavus or hammer toes Strength Geomorphologist, push/pull is equal. No drift Movement/Coordination Continuous dance-like movement of legs and torso Gait Unable to stand without upper body assistance. Slow station and stride. No festination or retropulsion. Gait is bizarre and cautious. Romberg's sign is absent. Drowsy, intermittently engaged, facial flushing noted. Neurological Exam Assessment & Plan 06/27/2021 - Neuromuscular, Peter Knight APRN.MISCELLANEOUS MACHINE OPERATOR ASSESSMENT Patient presents today as follow up [...] gradually rise. There was no facial droop, enlisted advisor and push/pulls were equal in strength, PERRL, [...] which included preparing to see the patient, eapx-hy-lugy patient care, completing clinical documentation, obtaining and/or reviewing separately obtained history, performing a medically appropriate examination, counseling and educating the pat ient/family/caregiver and ordering medications, tests, or procedures. Peter Knight APRN.MISCELLANEOUS MACHINE OPERATOR documented in this encounterBrown Memorial Hospital05-12-2022 Miscellaneous Notes* Telephone Encounter - Yan [...] tomorrow. Yan Bass MD documented in this encounterBrown Memorial Hospital05-10-2022 Miscellaneous Notes* Telephone Encounter - Leighann [...] issue. Leighann Alcazar RN documented in this encounterBrown Memorial Hospital05-10-2022 History of Present illness Narrative* Jackelyn [...] 7.5 tablets/week. She is following a local whitewasher who adjusted dose for her. Most recent [...] which included preparing to see the patient, iysp-mk-cave patient care, completing clinical documentation, obtaining and/or reviewing separately obtained history, performing a medically appropriate examination, counseling and educating the pat ient/family/caregiver, ordering medications, tests, or procedures. This note was dictated using [employer] speech recognition software and may contain some errors that were a result of the program not accurately transcribing what was dictated. Jackelyn Marques M.D., M.Sc. Attending Social Insurance Specialist Endocrinology [facility] Met[facility], [facility] Office: Appointments: documented in this encounterBrown [facility] Nurse Note* Dian Aldana RN - 06/14/2021 9:06 AM EDT Thank you for choosing the [facility] Department of Endocrinology, Diabetes and Metabolism. Did you know that you need to call 48 hours in advance of your scheduled visit, if you are unable to make your appointment? The [facility] thanks you for your commitment, because patients not showing to their appointment results in a lost opportunity for patients to receive [facility] at the [facility]. To Cancel an appointment, please choose one of the following: - Call the Appointment Call Center at [phone] - From [employer], Go to Appointments Cancel Appts If cancelling, consider your need to reschedule to prevent further delays in your care. To Schedule an appointment, please choose one of the following: - Call the Appointment Call Center at [phone] - From [employer], Go to Appointments Request an Appt documented in this encounterBrown [facility] Hospital05-10-2022 History of Present illness Narrative* Haily [place] [facility] - 06/14/2021 8:25 AM EDT [...] Haily [place] [employer] documented in this encounterBrown [facility] Hospital05-06-[facility]22 History of Present illness Narrative* Yan Bass MD - 06/10/2021 10:06 AM EDT HEMATOLOGY INITIAL CONSULTATION June 10, 2021 REFERRAL REQUESTED BY: Rajinder Collins PCP and other physicians involved in patient's care: Cas Galicia (PCP), Rajinder Collins (surgery), [...] to see endocrinology, neurology and cardiology at [facility] next week. ROS is negative [...] which included preparing to see the patient, [id number] patient care, completing clinical documentation, obtaining and/or reviewing separately obtained history, performing a medically appropriate examination, counseling and educating the pat ient/family/caregiver, ordering medications, tests, or procedures, independently interpreting results (not separately reported) and communicating results to the patient/family/caregiver. CC: Peng Manley documented in this encounterBrown Memorial Hospital04-26-2022 Miscellaneous Notes* Telephone Encounter - Shayla Santos - 05/31/2021 8:15 AM EDT Outside medical records received and scanned in for review. documented in this encounterBrown Memorial Hospital04-15-2022 Hospital Discharge instructions* Instructions* Shanna Rivas APRN - [facility] - 05/20/2021 Increase your fluid intake. Eat [...] sent through Care Everywhere. * Chest Pain (Afghan) * Abdominal Pain (Afghan) documented in this [employer] Phone: [phone]) 432-443603-12-2022 Hospital Discharge instructions* Instructions* Shanna Rivas APRN - [facility] - 04/16/2021 Increase your fluid intake. Follow-up with both PCP and RAILROAD FIRER/FIREMAN for reevaluation. Take Reglan as prescribed. Talk to your RAILROAD FIRER/FIREMAN about the left ovarian cyst seen on CT as well as possible mild fluid in your fallopian tube. Take all medications as prescribed. Return to the ER for increased pain, fevers, difficulty breathing, vomiting or new or worsening signs or symptoms. * Attachments The following attachments cannot be sent through Care Everywhere. * Ovarian Cyst: Functional (Afghan) * Nausea and Vomiting (Afghan) documented in this [employer] Phone: [phone]) 775-595309-27-2021 Hospital Discharge instructions* Instructions* Araseli Barrett MD [...] Everywhere. * Coronavirus Disease (COVID-19): General Info (Afghan) documented in this [employer] Phone: [phone]) 896-531508-02-2021 NoteHNO ID: [id number] Author: Lis Moraes MD Service: ? Author [...] Kenalog. - Tolerated procedure well Lis Moraes MDRos[facility] [id number] NoteHNO ID: [id number] Author: Lis Moraes MD Service: ? Author Type: Physician Type: Progress Notes Filed: 09/06/2020 3:10 PM Note Text: PROGRESS NOTE- HEADACHE SERVICE DATE: September 06, 2020 Location: [facility] Participants: patient and provider Requesting [...] and bleeds - Lavender (more content not included)...[facility] Future Appointments Appointment Date:02/28/2022 08:30:00 AM Scheduled Provider:LORAINE RUBALCAVA PA-C Location:[facility] Future Appointments Appointment Date:08/30/2022 03:00:00 PM Scheduled Provider:LORAINE RUBALCAVA PA-C Location:[facility] Appointment Type:URO Office Visit [facility] evaluation + Plan note Future Appointments Appointment Date:09/11/2023 09:00:00 AM Scheduled Provider:LORAINE RUBALCAVA PA-C Location:[facility] Appointment Type:URO Office Visit [facility] evaluation + Plan note Future Appointments Appointment Date:10/15/2025 10:20:00 AM Scheduled Provider:CHELO Overton APRN, [place] X Location:[facility] Appointment Type:URO Office Visit [facility] evaluation note* Diagnosis Strain of lumbar region, initial encounter- Primary documented in this encounter [employer] Phone: evaluation note* Diagnosis COVID-19- Primary documented in this encounter [employer] Phone: evaluation note* Diagnosis Intractable nausea and vomiting- Primary Persistent vomiting Hydrosalpinx Chronic salpingitis and oophoritis Left ovarian cyst Other and unspecified ovarian cyst documented in this encounter [employer] Phone: evaluation note* Diagnosis Chest pain, unspecified type- Primary Abdominal pain, acute, right lower quadrant Abdominal pain, right lower quadrant documented in this encounter [employer] Phone: [id number] note* Diagnosis Urticaria- Primary Urticaria, unspecified Moderate persistent asthma with exacerbation Unspecified asthma, with exacerbation documented in this encounter [employer] Phone: evaluation note* Diagnosis Coagulopathy (HCC)- Primary Other and unspecified coagulation defects [facility]* Diagnosis Screening for endocrine disorder- Primary Primary hypothyroidism Unspecified hypothyroidism documented in this encounter [facility]* Diagnosis Screening for endocrine disorder- Primary [facility]* Diagnosis Disorder of autonomic nervous system Unspecified disorder of autonomic nervous system documented in this encounter [facility]* Diagnosis Spasm of muscle- Primary Acute nonspecific chest pain with low risk of coronary artery disease documented in this encounter [employer] Phone: evaluation note* Diagnosis Worsening headaches- Primary Headache Maxillary sinus cyst Other diseases of nasal cavity and sinuses Muscle spasms of lower extremity, unspecified laterality Akathisia Abnormal involuntary movements Blurred vision Other specified visual disturbances Chorea Other choreas [facility]* Diagnosis Coagulopathy (HCC)- Primary Other and unspecified coagulation defects 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 documented in this encounter [facility]* Diagnosis Screening for endocrine disorder- Primary [facility]* Diagnosis Intractable chronic migraine without aura and without status migrainosus- Primary Chronic migraine without aura, with intractable migraine, so stated, without mention of status migrainosus Abnormal involuntary movement Abnormal involuntary movements documented in this encounter [facility]* Diagnosis Allergy, initial encounter- Primary Headaches [facility]* Diagnosis Bleeding disorder (HCC)- Primary Unspecified hemorrhagic conditions Coagulopathy (HCC) Other and unspecified coagulation defects 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 [facility]* Diagnosis Screening for endocrine disorder [facility]* Diagnosis 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) Unspecified hemorrhagic conditions documented in this encounter [facility]* Diagnosis History of COVID-19- Primary Symptomatic bradycardia Other specified cardiac dysrhythmias Blood pressure instability Other abnormal clinical finding [facility]* Diagnosis Angioedema, initial encounter- Primary Urticaria Urticaria, unspecified Hoarseness of voice Dysphonia Allergic rhinitis, unspecified seasonality, unspecified trigger Adverse effect of drug, initial encounter Allergic reaction to contrast material, initial encounter Adverse food reaction, initial encounter Moderate persistent asthma without complication Unspecified asthma Gastroesophageal reflux disease, unspecified whether esophagitis present documented in this encounter [facility]* Diagnosis Screening for endocrine disorder Muscle spasms of lower extremity, unspecified laterality Akathisia Abnormal involuntary movements documented in this encounter [facility]* Diagnosis Chronic migraine without aura, intractable, without status migrainosus- Primary documented in this encounter [facility]* Diagnosis Depression, unspecified depression type- Primary Anxiety Anxiety state, unspecified Intractable chronic migraine without aura and without status migrainosus Chronic migraine without aura, with intractable migraine, so stated, without mention of status migrainosus Abnormal involuntary movement Abnormal involuntary movements documented in this encounter [facility] note* Diagnosis White coat syndrome with hypertension- Primary documented in this encounter [facility]* Diagnosis Intractable chronic migraine without aura and without status migrainosus Chronic migraine without aura, with intractable migraine, so stated, without mention of status migrainosus Abnormal involuntary movement Abnormal involuntary movements documented in this encounter [facility] note* Diagnosis Chronic RLQ pain- Primary Abdominal pain, right lower quadrant Diastasis recti Diastasis of muscle documented in this encounter [facility]* Diagnosis Chronic RLQ pain- Primary Abdominal pain, right lower quadrant documented in this encounter [facility] note* Diagnosis Symptomatic bradycardia Other specified cardiac dysrhythmias Blood pressure instability Other abnormal clinical finding History of COVID-19 documented in this encounter [facility] note* Diagnosis White coat syndrome without diagnosis of hypertension- Primary Elevated blood pressure reading without diagnosis of hypertension documented in this encounter [facility] note* Diagnosis Diffuse pain- Primary Generalized pain Decreased activity tolerance Physical deconditioning Debility, unspecified Orthostatic intolerance documented in this encounter [facility]* Diagnosis Long COVID- Primary Diffuse pain Generalized pain Decreased activity tolerance PTSD (post-traumatic stress disorder) Posttraumatic stress disorder documented in this encounter [facility]* Diagnosis Allergic reaction, initial encounter- Primary [facility]* Diagnosis Depression, unspecified depression type- Primary Anxiety Anxiety state, unspecified Abnormal involuntary movement Abnormal involuntary movements [facility]* Diagnosis Post-acute sequelae of COVID-19 (PASC)- [...] of left axilla [facility]* Diagnosis Bone pain- Primary Disorder of bone and cartilage, unspecified Malaise and fatigue Other malaise and fatigue Lymphadenopathy Enlargement of lymph nodes documented in this encounter [facility]* Diagnosis 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 documented in this encounter [facility]* Diagnosis History of COVID-19- Primary Post-acute [...] joint, multiple sites documented in this encounter [facility]* Diagnosis History of COVID-19 Post-acute sequelae [...] in this encounter [facility] note* Diagnosis History of COVID-19 Post-acute [...] joint, multiple sites [facility]* Diagnosis 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 [facility]* Diagnosis History of COVID-19 Post-acute sequelae [...] joint, multiple sites [facility]* Diagnosis Malaise and fatigue- Primary Other malaise and fatigue Lymphadenopathy Enlargement of lymph nodes [facility]* Diagnosis Depression, unspecified depression type- Primary Anxiety Anxiety state, unspecified Abnormal involuntary movement Abnormal involuntary movements [facility]* Diagnosis Chronic migraine without aura, intractable, without status migrainosus- Primary [facility] Diagnosis Palpitations- Primary Symptomatic bradycardia Other specified cardiac dysrhythmias Orthostatic lightheadedness Dizziness and giddiness Diffuse pain Generalized pain Blood pressure instability Other abnormal clinical finding Decreased activity tolerance Orthostatic intolerance Moderate persistent asthma without complication Unspecified asthma Physical deconditioning Debility, unspecified [facility]* Diagnosis Night sweats- Primary Generalized hyperhidrosis Lymphadenopathy Enlargement of lymph nodes Rash and nonspecific skin eruption Rash and other nonspecific skin eruption Allergic rhinitis, unspecified seasonality, unspecified trigger Moderate persistent asthma without complication Unspecified asthma [facility]* Diagnosis 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) Unspecified hemorrhagic conditions [facility]* Diagnosis 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 [facility]* Diagnosis Breast screening- Primary Breast screening, unspecified 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 [facility]* Diagnosis KATELIN on CPAP- Primary Obstructive [...] hazards to health [facility]* Diagnosis Breast screening- Primary Breast screening, unspecified 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 documented in this encounter [facility]* Diagnosis Palpitations- Primary Orthostatic intolerance Symptomatic bradycardia Other specified cardiac dysrhythmias documented [facility]* Diagnosis Moderate persistent asthma without complication- Primary Unspecified asthma SOB (shortness of breath) Shortness of breath Post-acute sequelae of COVID-19 (PASC) documented [facility]* Diagnosis Migraine without aura and without status migrainosus, not intractable- Primary Migraine without aura, without mention of intractable migraine without mention of status migrainosus [facility]* Diagnosis 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) Unspecified hemorrhagic conditions documented [facility]* Diagnosis No-show for appointment- Primary [facility]* Diagnosis 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) Unspecified hemorrhagic conditions Coagulopathy (HCC) Other and unspecified coagulation defects [facility]* Diagnosis 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) Unspecified hemorrhagic conditions [facility]* Diagnosis 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 documented [facility] this encounter [facility]* Diagnosis Migraine without aura and without status migrainosus, not intractable- Primary Migraine without aura, without mention of intractable migraine without mention of status migrainosus [facility]* Diagnosis 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) Unspecified hemorrhagic conditions Coagulopathy (HCC) Other and unspecified coagulation defects documented [facility] this encounter [facility]* Diagnosis Moderate persistent asthma without complication (CMS/HCC)- Primary [facility] Diagnosis 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 POTS (postural orthostatic tachycardia syndrome) Tachycardia, unspecified documented in this encounter [facility] note* Diagnosis Chronic RLQ pain Abdominal pain, right lower quadrant documented in this encounter [facility] note* Diagnosis Severe persistent asthma with (acute) exacerbation (CMS/HCC)- Primary Allergic reaction, subsequent encounter Gastroesophageal reflux disease without esophagitis Esophageal reflux Vocal cord dysfunction Other diseases of vocal cords documented [facility]* Diagnosis Vocal cord dysfunction- Primary Other diseases of vocal cords [facility] Diagnosis Autonomic dysfunction- Primary Chest pain, unspecified type Type 2 diabetes mellitus with hyperglycemia, without long-term current use of insulin (CMS/HCC) Type 2 diabetes mellitus with hyperglycemia, without long-term current use of insulin ([facility])- Primary Chronic [id number] syndrome Moderate persistent asthma without complication (CMS/HCC) Chronic allergic rhinitis due to pollen Edema of both legs Edema Acute non-recurrent pansinusitis Allergic reaction, subsequent encounter- Primary Body mass index (BMI) 38.0-38.9, adult Type 2 diabetes mellitus with hyperglycemia, without long-term current use of insulin ([facility])- Primary Chronic [id number] syndrome Moderate persistent asthma without complication ([facility]/HCC) Chronic allergic rhinitis due to pollen Edema of both legs Edema PCOS (polycystic ovarian syndrome)- Primary Polycystic ovaries Well woman exam with routine gynecological exam Routine gynecological examination Hormone disorder Unspecified endocrine disorder documented in this encounter [facility]* Diagnosis Moderate asthma without complication, unspecified whether persistent documented in this encounter [facility] note* Diagnosis Allergic reaction, subsequent encounter- Primary Body mass index (BMI) 38.0-38.9, adult documented in this encounter [facility]* Diagnosis Type 2 diabetes mellitus with hyperglycemia, without long-term current use of insulin ([facility])- Primary Chronic [id number] syndrome Moderate persistent asthma without complication ([facility]/HCC) Chronic allergic rhinitis due to pollen Edema of both legs Edema documented in this encounter [facility]* Diagnosis Autonomic dysfunction- Primary Chest pain, unspecified type Type 2 diabetes mellitus with hyperglycemia, without long-term current use of insulin (CMS/HCC) Type 2 diabetes mellitus with hyperglycemia, without long-term current use of insulin ([facility]/HCC)- Primary Chronic [id number] syndrome Moderate persistent asthma without complication (CMS/HCC) Chronic allergic rhinitis due to pollen Edema of both legs Edema Acute non-recurrent pansinusitis Allergic reaction, subsequent encounter- Primary Body mass index (BMI) 38.0-38.9, adult Type 2 diabetes mellitus with hyperglycemia, without long-term current use of insulin (CMS/HCC)- Primary Chronic [id number] syndrome Moderate persistent asthma without complication (CMS/HCC) Chronic allergic rhinitis due to pollen Edema of both legs Edema Type 2 diabetes mellitus with hyperglycemia, without long-term current use of insulin (CMS/[facility])- Primary Autonomic dysfunction Chronic [id number] syndrome Moderate persistent asthma without complication (CMS/HCC) Chronic allergic rhinitis due to pollen Edema of both legs Edema MDD (major depressive disorder), recurrent episode, mild (HCC) ([facility]) Class 2 severe obesity due to excess calories with serious comorbidity and body mass index (BMI) of37.0 to 37.9 in adult ([facility]) Gastroesophageal reflux disease without esophagitis Esophageal reflux documented in this encounter [facility]* Diagnosis Autonomic dysfunction- Primary Chest pain, unspecified type Type 2 diabetes mellitus with hyperglycemia, without long-term current use of insulin ([facility]/HCC) Type 2 diabetes mellitus with hyperglycemia, without long-term current use of insulin ([facility])- Primary Chronic [id number] syndrome Moderate persistent asthma without complication (CMS/HCC) Chronic allergic rhinitis due to pollen Edema of both legs Edema Acute non-recurrent pansinusitis Allergic reaction, subsequent encounter- Primary Body mass index (BMI) 38.0-38.9, adult Type 2 diabetes mellitus with hyperglycemia, without long-term current use of insulin ([facility])- Primary Chronic wgtj-SDHWO-70 syndrome Moderate persistent asthma without complication (CMS/HCC) Chronic allergic rhinitis due to pollen Edema of both legs Edema Type 2 diabetes mellitus with hyperglycemia, without long-term current use of insulin ([facility])- Primary Autonomic dysfunction Chronic lqqc-XHNCB-77 syndrome Moderate persistent asthma without complication (CMS/HCC) Chronic allergic rhinitis due to pollen Edema of both legs Edema MDD (major depressive disorder), recurrent episode, mild (HCC) ([facility]) Class 2 severe obesity due to excess calories with serious comorbidity and body mass index (BMI) of37.0 to 37.9 in adult ([facility]) Gastroesophageal reflux disease without esophagitis Esophageal reflux COVID-19- Primary Moderate persistent asthma without complication ([facility]) [facility] Diagnosis Migraine without aura and without status migrainosus, not intractable- Primary 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 Word finding difficulty Autonomic dysfunction Cervicalgia [facility] Diagnosis Chronic sinusitis [facility] Diagnosis 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- Primary [facility] Diagnosis 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 [facility] Diagnosis 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- Primary [facility]* Diagnosis Migraine without aura and without status migrainosus, not intractable- Primary 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 Cervicalgia Hypersomnia with sleep apnea Hypersomnia with sleep apnea, unspecified Memory difficulties Memory loss KATELIN (obstructive sleep apnea) Obstructive sleep apnea (adult) (pediatric) Trapezius muscle spasm Word finding difficulty [facility] Diagnosis 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 [facility] Diagnosis 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- Primary Migraine without aura and without status migrainosus, not intractable Word finding difficulty Trapezius muscle spasm Memory difficulties Memory loss Hypersomnia with sleep apnea Hypersomnia with sleep apnea, unspecified 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 Cervicalgia Brain fog [facility] Diagnosis Autonomic dysfunction- Primary Chest pain, unspecified type Type 2 diabetes mellitus with hyperglycemia, without long-term current use of insulin ([facility]) Type 2 diabetes mellitus with hyperglycemia, without long-term current use of insulin ([facility])- Primary Chronic mvzl-VAEOW-82 syndrome Moderate persistent asthma without complication (CMS/HCC) Chronic allergic rhinitis due to pollen Edema of both legs Edema Acute non-recurrent pansinusitis Allergic reaction, subsequent encounter- Primary Body mass index (BMI) 38.0-38.9, adult Type 2 diabetes mellitus with hyperglycemia, without long-term current use of insulin (CMS/HCC)- Primary Chronic aplc-BONGS-49 syndrome Moderate persistent asthma without complication (CMS/HCC) Chronic allergic rhinitis due to pollen Edema of both legs Edema Type 2 diabetes mellitus with hyperglycemia, without long-term current use of insulin (CMS/HCC)- Primary Autonomic dysfunction Chronic vfcp-DVGDG-11 syndrome Moderate persistent asthma without complication (CMS/HCC) Chronic allergic rhinitis due to pollen Edema of both legs Edema MDD (major depressive disorder), recurrent episode, mild (HCC) (CMS/HCC) Class 2 severe obesity due to excess calories with serious comorbidity and body mass index (BMI) of37.0 to 37.9 in adult (CMS/HCC) Gastroesophageal reflux disease without esophagitis Esophageal reflux COVID-19- Primary Moderate persistent asthma without complication (CMS/HCC) Melanocytic nevus of trunk- Primary Benign neoplasm of skin of trunk, except scrotum Other specified dermatitis Dermatofibroma of right upper extremity [facility] Diagnosis Autonomic dysfunction- Primary Chest pain, unspecified type Type 2 diabetes mellitus with hyperglycemia, without long-term current use of insulin (HCC) Type 2 diabetes mellitus with hyperglycemia, without long-term current use of insulin (HCC)- Primary Chronic gexz-MIBJM-25 syndrome Moderate persistent asthma without complication (HCC) Chronic allergic rhinitis due to pollen Edema of both legs Edema Acute non-recurrent pansinusitis Allergic reaction, subsequent encounter- Primary Body mass index (BMI) 38.0-38.9, adult Type 2 diabetes mellitus with hyperglycemia, without long-term current use of insulin (HCC)- Primary Chronic tgak-TKKIL-13 syndrome Moderate persistent asthma without complication (HCC) Chronic allergic rhinitis due to pollen Edema of both legs Edema Type 2 diabetes mellitus with hyperglycemia, without long-term current use of insulin (HCC)- Primary Autonomic dysfunction Chronic ifxt-CBGXA-34 syndrome Moderate persistent asthma without complication (HCC) Chronic allergic rhinitis due to pollen Edema of both legs Edema MDD (major depressive disorder), recurrent episode, mild Class 2 severe obesity due to excess calories with serious comorbidity and body mass index (BMI) of37.0 to 37.9 in adult ([facility]) Gastroesophageal reflux disease without esophagitis Esophageal reflux Annual physical exam- Primary Routine general medical examination at a health care facility Type 2 diabetes mellitus with hyperglycemia, without long-term current use of insulin ([facility]) Primary hypothyroidism Unspecified hypothyroidism Edema of both legs Edema [facility] Diagnosis Migraine without aura and without status migrainosus, not intractable [facility] Diagnosis Edema, unspecified type Palpitations with regular cardiac rhythm [facility] Diagnosis Onset Date Resolution Status Admit Date Right forearm injury acuteAugust 2024 11:37am [facility] Work Phone: Evaluation note* Diagnosis Migraine without aura and without status migrainosus, not intractable [facility] Diagnosis Autonomic dysfunction- Primary Chest pain, unspecified type Type 2 diabetes mellitus with hyperglycemia, without long-term current use of insulin (HCC) Type 2 diabetes mellitus with hyperglycemia, without long-term current use of insulin ([facility])- Primary Chronic xssl-YRDRL-49 syndrome Moderate persistent asthma without complication (HCC) Chronic allergic rhinitis due to pollen Edema of both legs Edema Acute non-recurrent pansinusitis Allergic reaction, subsequent encounter- Primary Body mass index (BMI) 38.0-38.9, adult Type 2 diabetes mellitus with hyperglycemia, without long-term current use of insulin ([facility])- Primary Chronic kiqi-OBWUW-39 syndrome Moderate persistent asthma without complication (HCC) Chronic allergic rhinitis due to pollen Edema of both legs Edema Type 2 diabetes mellitus with hyperglycemia, without long-term current use of insulin (HCC)- Primary Autonomic dysfunction Chronic unxo-XSJTK-07 syndrome Moderate persistent asthma without complication (HCC) Chronic allergic rhinitis due to pollen Edema of both legs Edema MDD (major depressive disorder), recurrent episode, mild Class 2 severe obesity due to excess calories with serious comorbidity and body mass index (BMI) of37.0 to 37.9 in adult ([facility]) Gastroesophageal reflux disease without esophagitis Esophageal reflux Annual physical exam- Primary Routine general medical examination at a health care facility Type 2 diabetes mellitus with hyperglycemia, without long-term current use of insulin ([facility]) Primary hypothyroidism Unspecified hypothyroidism Edema of both legs Edema Chronic rhinosinusitis- Primary Unspecified sinusitis (chronic) Right wrist pain Pain in joint, forearm Right forearm pain documented [facility] encounter [facility]* Diagnosis POTS (postural orthostatic tachycardia [...] cervix and uterus [facility] Diagnosis Autonomic dysfunction- Primary Chest pain, unspecified type Type 2 diabetes mellitus with hyperglycemia, without long-term current use of insulin (HCC) Type 2 diabetes mellitus with hyperglycemia, without long-term current use of insulin ([facility])- Primary Chronic uvwq-SBHFK-99 syndrome Moderate persistent asthma without complication ([facility]) Chronic allergic rhinitis due to pollen Edema of both legs Edema Acute non-recurrent pansinusitis Allergic reaction, subsequent encounter- Primary Body mass index (BMI) 38.0-38.9, adult Type 2 diabetes mellitus with hyperglycemia, without long-term current use of insulin ([facility])- Primary Chronic qsro-EAIRM-18 syndrome Moderate persistent asthma without complication (HCC) Chronic allergic rhinitis due to pollen Edema of both legs Edema Type 2 diabetes mellitus with hyperglycemia, without long-term current use of insulin ([facility])- Primary Autonomic dysfunction Chronic powt-NMQBH-05 syndrome Moderate persistent asthma without complication (HCC) Chronic allergic rhinitis due to pollen Edema of both legs Edema MDD (major depressive disorder), recurrent episode, mild Class 2 severe obesity due to excess calories with serious comorbidity and body mass index (BMI) of37.0 to 37.9 in adult ([facility]) Gastroesophageal reflux disease without esophagitis Esophageal reflux Type 2 diabetes mellitus with hyperglycemia, without long-term current use of insulin ([facility]) Annual physical exam- Primary Routine general medical examination at a health care facility Type 2 diabetes mellitus with hyperglycemia, without long-term current use of insulin ([facility]) Primary hypothyroidism Unspecified hypothyroidism Edema of both legs Edema Chronic rhinosinusitis- Primary Unspecified sinusitis (chronic) Right wrist pain Pain in joint, forearm Right forearm pain documented in this encounter [facility]* Diagnosis Chronic sinusitis- Primary Vocal cord dysfunction Other diseases of vocal cords Geographic tongue Hypertrophy of both inferior nasal turbinates Tympanosclerosis, bilateral Severe persistent asthma without complication ([facility]) [facility] Diagnosis 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- Primary [facility]* Diagnosis 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- Primary [facility]* Diagnosis Autonomic dysfunction- Primary Chest pain, unspecified type Type 2 diabetes mellitus with hyperglycemia, without long-term current use of insulin (HCC) Type 2 diabetes mellitus with hyperglycemia, without long-term current use of insulin (HCC)- Primary Chronic rzps-FYVOD-54 syndrome Moderate persistent asthma without complication (HCC) Chronic allergic rhinitis due to pollen Edema of both legs Edema Acute non-recurrent pansinusitis Allergic reaction, subsequent encounter- Primary Body mass index (BMI) 38.0-38.9, adult Type 2 diabetes mellitus with hyperglycemia, without long-term current use of insulin (HCC)- Primary Chronic lqcz-DFWXG-09 syndrome Moderate persistent asthma without complication (HCC) Chronic allergic rhinitis due to pollen Edema of both legs Edema Type 2 diabetes mellitus with hyperglycemia, without long-term current use of insulin (HCC)- Primary Autonomic dysfunction Chronic cgsg-VIGUJ-73 syndrome Moderate persistent asthma without complication (HCC) Chronic allergic rhinitis due to pollen Edema of both legs Edema MDD (major depressive disorder), recurrent episode, mild Class 2 severe obesity due to excess calories with serious comorbidity and body mass index (BMI) of37.0 to 37.9 in adult Gastroesophageal reflux disease without esophagitis Esophageal reflux Annual physical exam- Primary Routine general medical examination at a health care facility Type 2 diabetes mellitus with hyperglycemia, without long-term current use of insulin (HCC) Primary hypothyroidism Unspecified hypothyroidism Edema of both legs Edema Chronic rhinosinusitis- Primary Unspecified sinusitis (chronic) Right wrist pain Pain in joint, forearm Right forearm pain Postmenopausal HRT (hormone replacement therapy)- Primary Need for prophylactic hormone replacement therapy (postmenopausal) Well woman exam with routine gynecological exam Routine gynecological examination Encounter for screening mammogram for malignant neoplasm of breast Hormone disorder Unspecified endocrine disorder documented in this encounter [facility]* Diagnosis 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 * Strain or Sprain (Afghan) [facility] Hospital Discharge instructions* Attachments The following attachments cannot be sent through Care Everywhere. * Chest Pain (Afghan) * Restless Legs Syndrome (Afghan) [facility] Hospital Discharge instructions No data available for this section [facility] InstructionsNot on filedocumented in this encounter [...] available for this section [facility] [employer] reason for referral (narrative)* Diagnostic Procedure Only (Routine) - AuthorizedSpecialtyDiagnoses / ProceduresReferred By Contact Referred To [facility] Diagnoses Chronic RLQ pain Procedures US SOFT TISSUE ABDOMEN US ABDOMINAL REAL TIME W/[place] [address] [place] [address] Us Imaging Referral IDStatusReasonStart DateExpiration DateVisits RequestedVisits [id number] Auto-Generated Referral / [facility] for referral (narrative)* Diagnostic Procedure Only (Routine) - AuthorizedSpecialtyDiagnoses / ProceduresReferred By Contact Referred To [facility] Diagnoses Chronic RLQ pain Procedures US PELVIS LTD US PELVIC NONOBSTETRIC IMAGE DCMTN LIMITED/F/[place] [address] [place] [address] Us Imaging Referral IDStatusReasonStart DateExpiration DateVisits RequestedVisits [id number] Auto-Generated Referral / [facility] for referral (narrative)* Outpatient Procedure (Routine) - ClosedSpecialtyDiagnoses / ProceduresReferred By ContactReferred To Contact [facility] [place] Diagnoses Symptomatic bradycardia Blood pressure instability History of COVID-19 Procedures ECHO ECHO TTHRC R-T 2D W/WOM-MODE COMPL SPEC&COLR D Sai Perez MD [address] [place] [address] [facility] [address] [address] Referral IDStatusReasonStart DateExpiration DateVisits RequestedVisits [id number] Auto-Generated Referral / [facility] for referral (narrative)* Diagnostic Procedure Only (Routine) - Pending ReviewSpecialtyDiagnoses / ProceduresReferred By Contact Referred To [facility] Diagnoses Post-acute sequelae of COVID-19 (PASC) Mass of left axilla Procedures US CHEST WALL/SOFT TISSUE US CHEST REAL TIME W/IMAGE DOCUMENTATION Landen Mahmood APRN.CNP [address] [id number] Us Imaging Referral IDStatusReasonStart DateExpiration DateVisits RequestedVisits [id number] Review Auto-Generated Referral * Outpatient Procedure (Routine) - Pending ReviewSpecialtyDiagnoses / Procedures Referred By ContactReferred To [facility] [place] Diagnoses History of COVID-19 Post-acute sequelae of COVID-19 (PASC) SOB (shortness of breath) Chronic cough Chest discomfort Palpitation CAVANAUGH (dyspnea on exertion) Dizziness Near syncope Night sweats Orthopnea Anxiety Myalgia Pain in joint, multiple sites Procedures LUNG VOLUMES Landen Mahmood APRN.MISCELLANEOUS MACHINE OPERATOR [address] [place] [address] Respiratory Mabel [address] [place] [address] Referral IDStatusReasonStart DateExpiration DateVisits RequestedVisits [id number] Review Auto-Generated Referral * Outpatient Procedure (Routine) - Pending ReviewSpecialtyDiagnoses / Procedures Referred By ContactReferred To [facility] [place] Diagnoses History of COVID-19 Post-acute sequelae of COVID-19 (PASC) SOB (shortness of breath) Chronic cough Chest discomfort Palpitation CAVANAUGH (dyspnea on exertion) Dizziness Near syncope Night sweats Orthopnea Anxiety Myalgia Pain in joint, multiple sites Procedures SPIROMETRY - BASELINE AND POST DILATOR BRNCDILAT RSPSE SPMTRY PRE&POST-BRNCDILAT ADMN Landen Mahmood APRN.MACY [address] [place] [address] [place], [place] [id number] Referral IDStatusReasonStart DateExpiration DateVisits RequestedVisits [id number] Review Auto-Generated Referral * Outpatient Procedure (Routine) - Pending ReviewSpecialtyDiagnoses / Procedures Referred By ContactReferred To [facility] Diagnoses History of COVID-19 Post-acute sequelae of COVID-19 (PASC) SOB (shortness of breath) Chronic cough Chest discomfort Palpitation CAVANAUGH (dyspnea on exertion) Dizziness Near syncope Night sweats Orthopnea Anxiety Myalgia Pain in joint, multiple sites Procedures SIX MINUTE WALK CARDIOPULMONARY EXERCISE STRESS Landen Mahmood APRN.MISCELLANEOUS MACHINE OPERATOR [address] [place] [address] [place], [place] [id number] Referral IDStatusReasonStart DateExpiration DateVisits RequestedVisits [id number] Review Auto-Generated Referral * Outpatient Procedure (Routine) - Pending ReviewSpecialtyDiagnoses / Procedures Referred By ContactReferred To [facility] Diagnoses History of COVID-19 Post-acute sequelae of COVID-19 (PASC) SOB (shortness of breath) Chronic cough Chest discomfort Palpitation CAVANAUGH (dyspnea on exertion) Dizziness Near syncope Night sweats Orthopnea Anxiety Myalgia Pain in joint, multiple sites Procedures LUNG DIFFUSION CAPACITY (DLCO) DIFFUSING CAPACITY Landen Mahmood APRN.MISCELLANEOUS MACHINE OPERATOR [address] [place] [address] [address] [place], [place] [phone] Referral IDStatusReasonStart DateExpiration DateVisits RequestedVisits [id number] Review Auto-Generated Referral / [facility] for referral (narrative)* Outpatient Procedure (Routine) - Pending ReviewSpecialtyDiagnoses / ProceduresReferred By ContactReferred To [facility] Diagnoses KATELIN on CPAP Poor compliance with CPAP treatment Procedures PAP NAP PSG (CPAP, BILEVEL, ASV) SLEEP STD REC VNTJ RESPIR ECG/HRT RATE&O2 ATTN Meena Grissom MD [address] [place] [address] [place] [address] Referral IDStatusReB[facility] DateExpiration DateVisits RequestedVisits [id number] Review Auto-Generated Referral / [facility] for referral (narrative)* Outpatient Procedure (Routine) - Pending ReviewSpecialtyDiagnoses / ProceduresReferred By ContactReferred To [facility] [place] Diagnoses Moderate persistent asthma without complication SOB (shortness of breath) Post-acute sequelae of COVID-19 (PASC) Procedures SPIROMETRY - BASELINE AND POST DILATOR BRNCDILAT RSPSE SPMTRY PRE&POST-BRNCDILAT Jaja Corcoran PA-C [facility] [place] [address] Res[address] Mabel [address] [place] [address] Referral IDStatus[facility] DateExpiration DateVisits RequestedVisits [id number] Review Auto-Generated Referral * Outpatient Procedure (Routine) - Pending ReviewSpecialtyDiagnoses / Procedures Referred By ContactReferred To [facility]LOVEL[facility] Diagnoses Moderate persistent asthma without complication SOB (shortness of breath) Post-acute sequelae of COVID-19 (PASC) Procedures NITRIC OXIDE, EXHALED NITRIC OXIDE GAS DETERMINATION Jaja Cabral PA-C [address] [place] [address] Respiratory Mabel [address] [place] [address] Referral IDStatusReasonStart DateExpiration DateVisits RequestedVisits [id number] Review Auto-Generated Referral [facility] for referral (narrative)* Diagnostic Procedure Only (Routine) - ClosedSpecialtyDiagnoses / ProceduresReferred By ContactReferred To [facility] Diagnoses Chronic RLQ pain Procedures US PELVIS LTD US PELVIC NONOBSTETRIC IMAGE [facility]/F/[place] [address] [place] [address] Us Imaging [place] [address] Referral IDStatus[facility] DateExpiration DateVisits RequestedVisits [id number] Auto-Generated Referral / [facility] for referral (narrative)* Consultation (Routine) - Pending ReviewSpecialtyDiagnoses / ProceduresReferred By ContactReferred To ContactSpeech Pathology Diagnoses Vocal cord dysfunction Procedures HI OFFICE/OUTPATIENT NEW HIGH MDM 60 MINUTES Christy Painting MD [address] [address] Referral IDStatusReasonStbelle DateExpiration DateVisits RequestedVisits [id number] Review Special[facility] Services Required [facility] (narrative)* Consultation (Routine) - Pending ReviewSpecialtyDiagnoses / ProceduresReferred By ContactReferred To Contact Allergy Diagnoses Allergic reaction, subsequent encounter Procedures HI OFFICE/OUTPATIENT NEW HIGH MDM 60 MINUTES Cas Galicia MD [address] [place] [address] Christy Painting MD [address] [address] Referral IDStatusReasonStbelle DateExpiration DateVisits RequestedVisits [id number] Review Specialty Services Required / [facility] for referral (narrative)No reason for referral information availableFirelands [facility] Work Phone: Reason for visit Narrative* Outpatient Procedure (Routine) - ClosedSpecialtyDiagnoses / ProceduresReferred By ContactReferred To [facility] Diagnoses Symptomatic bradycardia Blood pressure instability History of COVID-19 Procedures ECHO ECHO TTHRC R-T 2D W/WOM-MODE COMPL SPEC&COLR D Sai Perez MD [address] [place] [address] [facility] [address] [place] [address] Referral IDStatusReasonStbelle DateExpiration DateVisits RequestedVisits [id number] Auto-Generated Referral / [facility] for visit Narrative* Outpatient Procedure (Routine) - ClosedSpecialtyDiagnoses / ProceduresReferred By ContactReferred To Contact [facility] Diagnoses History of COVID-19 Post-acute sequelae of COVID-19 (PASC) SOB (shortness of breath) Chronic cough Chest discomfort Palpitation CAVANAUGH (dyspnea on exertion) Dizziness Near syncope Night sweats Orthopnea Anxiety Myalgia Pain in joint, multiple sites Procedures SIX MINUTE WALK CARDIOPULMONARY EXERCISE STRESS Landen Mahmood, ASSEMBLING FABRICATOR.MISCELLANEOUS MACHINE OPERATOR [address] [place] [address] Res[facility] [address] [place] [address] Referral IDStatusReasonNaselle DateExpiration DateVisits RequestedVisits [id number] Auto-Generated Referral / [facility] for visit Narrative* Diagnostic Procedure Only (Routine) - ClosedSpecialtyDiagnoses / ProceduresReferred By ContactReferred To Contact US IMAGING Diagnoses Chronic RLQ pain Procedures US PELVIS LTD US PELVIC NONOBSTETRIC IMAGE DCMTN LIMITED/F/[place] [address] [place] [address] Us Imaging [place] [address] Referral IDStatusReasonStbelle DateExpiration DateVisits RequestedVisits [id number] Auto-Generated Referral / [facility] for visit Narrative* Cardiology (Routine) - Closed SpecialtyDiagnoses / ProceduresReferred By ContactReferred To Contact Cardiology Diagnoses Edema, unspecified type Palpitations with regular cardiac rhythm Procedures Echo (TTE) complete (PRN contrast/bubble/strain/3D) HI ECHO TTHRC R-T 2D W/WOM-MODE COMPL SPEC&COLR D HI TTE W OR WO FOL WCON,DOPPLER Macrina Wadsworth, LIO - MISCELLANEOUS MACHINE OPERATOR [address] [place] [address] Phone: tel: fax: Referral IDStatusReasonStart DateExpiration DateVisits RequestedVisits [id number]/14/20257/11/202611 [facility] Advance Directives TypeDate RecordedPatient RepresentativeExplanationACP-Advance DirectiveACP-Power of AttorneyCode StatusDate ActivatedDate InactivatedCommentsFull Code12/30/2011 10:09 AM12/31/2011 4:00 PMTypeDate RecordedPatient RepresentativeExplanation Advance Directive(s)05/18/2015 10:11 AMAdvance Directive(s)05/14/2015 12:11 PMType Date RecordedPatient RepresentativeExplanationAdvance Directive(s)06/27/2021 1:27 PMAdvance Directive(s)05/18/2015 10:11 AMAdvance Directive(s)05/14/2015 12:11 PM TypeDate RecordedPatient RepresentativeExplanationAdvance Directive(s)06/27/2021 1:27 PMAdvance Directive(s)05/18/2015 10:11 AMAdvance Directive(s)05/14/2015 12:11 PMTypeDate RecordedPatient RepresentativeExplanationACP-Advance Directive 01/12/2022 2:29 PMACP-Power of Zuqdlilh27/8/2022 2:29 PMCode StatusDate Activated Date InactivatedCommentsFull Code01/08/2022 5:06 PM01/11/2022 3:07 PMFull Code 12/30/2011 10:09 AM12/31/2011 4:00 PMNameRelationshipHealthcare Agent RelationshipCommunicationJustin WilliamsSpousePrimary Decision Maker* * TypeDate RecordedPatient RepresentativeExplanationACP-Advance Ehijjuxru94/8/2022 2:29 PMACP-Power of Dimlknhv64/8/2022 2:29 PMDate ActivatedDate Inactivated Zmvwjruu86/4/2022 5:06 PM01/11/2022 3:07 PMDate ActivatedDate InactivatedComments 12/30/2011 10:09 AM12/31/2011 4:00 PMNameRelationshipHealthcare Agent RelationshipCommunicationJustin WilliamsSpousePrimary Decision Maker* * Date ActivatedDate FoorsmkqjggRpyhsjat83/4/2022 5:06 PM01/11/2022 3:07 PMDate ActivatedDate VcdundyggzhLexmpdaw24/24/2012 10:09 AM12/31/2011 4:00 PMName RelationshipHealthcare Agent RelationshipCommunicationJustin [facility] Primary Decision Maker* * NameRelationshipHealthcare Agent RelationshipCommunicationJustin [facility] Primary Decision Maker* * Advance Directive Response Recorded Date/ Time Advance Directives No December 3:56pm Advance Directive Response Recorded Date/ Time Advance Directives No September 08 4:54pm Summary Purpose Family History Relationship Condition Age at Onset Recorded Date/T edgar father Heart disease Unknown DeceasedUnknownDiabetes mellitusUnknownHypertensionUnknownmotherDiabetes mellitusUnknownHistory of strokeUnknownHeart diseaseUnknown Reason for Referral SpecialtyDiagnoses / ProceduresReferred By ContactReferred To ContactNeurology Diagnoses Muscle spasms of lower extremity, unspecified laterality Akathisia Procedures CONSULT TO NEUROLOGY OFFICE/OUTPATIENT [facility] 60-74 MINUTES Peter Knight APRN.MISCELLANEOUS MACHINE OPERATOR [address] [facility] [place] [place] [address] Referral IDStatusReasonStart DateExpiration DateVisits RequestedVisits [id number] PCP Requested Referral [id number] / ProceduresReferred By ContactReferred To ContactEnt - Otolaryngology Diagnoses Maxillary sinus cyst Procedures CONSULT TO ENT OFFICE/OUTPATIENT [facility] 60-74 MINUTES Peter Knight APRN.MISCELLANEOUS MACHINE OPERATOR [address] [facility] [place] [address] Referral IDStatusReasonNaselle DateExpiration DateVisits RequestedVisits [id number] PCP Requested Referral [id number] / ProceduresReferred By ContactReferred To Contact Diagnoses Coagulopathy (HCC) Qualitative platelet disorder (HCC) Procedures CONSULT TO MEDICAL GENETICS - GENERAL OFFICE/OUTPATIENT [facility] 60-74 MINUTES MEDICAL GENETICS COUNSELING EACH 30 MINUTES aYn Bass MD [address] [place] [address] [place] [address] [place] [address] Referral IDStatusReasonStart DateExpiration DateVisits RequestedVisits [id number] PCP Requested Referral Auto-Generated Referral [id number] / ProceduresReferred By ContactReferred To ContactPsychology Diagnoses Intractable chronic migraine without aura and without status migrainosus Abnormal involuntary movement Procedures CONSULT TO PSYCHOLOGY OFFICE/OUTPATIENT [facility] 60-74 MINUTES Tracee Mcintyre MD [address] [place] [address] Referral IDStatusReasonStart DateExpiration DateVisits RequestedVisits [id number] Review PCP Requested Referral [id number] / ProceduresReferred By ContactReferred To ContactREHAB AND SPORTS THERAPY INS Diagnoses Intractable chronic migraine without aura and without status migrainosus Abnormal involuntary movement Procedures CONSULT TO PHYSICAL THERAPY PHYSICAL THERAPY EVALUATION HIGH COMPLEX 45 MINS Tracee Mcintyre MD [address] [place] [address] [facility] [place] [address] Referral IDStatusReasonStart DateExpiration DateVisits RequestedVisits [id number] Review Auto-Generated Referral [id number] / ProceduresReferred By ContactReferred To ContactAllergy Diagnoses Allergy, initial encounter Procedures CONSULT TO ALLERGY/IMMUNOLOGY OFFICE/OUTPATIENT [facility] 60-74 MINUTES Aldo Ann MD [address] [place] [address] Referral IDStatusReasonStart DateExpiration DateVisits RequestedVisits [id number] PCP Requested Referral [id number] / ProceduresReferred By ContactReferred To Van HOROWITZID RECOV [facility] INDP Diagnoses History of COVID-19 Procedures CONSULT TO COVID RECOVER CLINIC Sai Perez MD [address] [facility] [place] [address] Pulm Covid Rec[facility] [address] [place] [address] Referral IDStatusReasonStart DateExpiration DateVisits RequestedVisits [id number] PCP Requested Referral [id number] / ProceduresReferred By ContactReferred To ContactDELAWARE COUNTY H[facility]ITALRT [facility] Diagnoses Symptomatic bradycardia Blood pressure instability History of COVID-19 Procedures ECHO ECHO TTHRC R-T 2D W/WOM-MODE COMPL SPEC&COLR D Sai Perez MD [address] [place] [address] [facility] [place] [address] Referral IDStatusReasonStart DateExpiration DateVisits RequestedVisits [id number] Auto-Generated Referral [id number] / ProceduresReferred By ContactReferred To ContactEnt - Otolaryngology Diagnoses Hoarseness of voice Procedures CONSULT TO ENT OFFICE/OUTPATIENT [facility] MDM 60-74 MINUTES Henny Rushing MD [address] [address] Rc Cardenas, PhD, [facility] SUPERINTENDANT [address] [place] [address] Referral IDStatusReasonStart DateExpiration DateVisits RequestedVisits [id number] PCP Requested Referral [id number] / ProceduresReferred By ContactReferred To Contact Diagnoses Diffuse pain Decreased activity tolerance Physical deconditioning Procedures WELLNESS CONSULT OFFICE/OUTPATIENT [facility] MDM 60-74 MINUTES Peter Knight, LIO.MISCELLANEOUS MACHINE OPERATOR [address] [place] [address] Referral IDStatusReasonStart DateExpiration DateVisits RequestedVisits [id number] PCP Requested Referral [id number] / ProceduresReferred By ContactReferred To Contact Diagnoses Long COVID PTSD (post-traumatic stress disorder) Procedures MIND/BODY HOLISTIC PSYCHOTHERAPY OFFICE/OUTPATIENT [facility] 60-74 [place] [address] Referral IDStatusReasonStart DateExpiration DateVisits RequestedVisits [id number] PCP Requested Referral [id number] / ProceduresReferred By ContactReferred To Contact Diagnoses Long COVID Diffuse pain Decreased activity tolerance Procedures CONSULT TO [facility] OFFICE/OUTPATIENT [facility] 60-74 MINUTES Ayaka Bright MD [facility] [email or web address] [place] [address] Referral IDStatusReasonStart DateExpiration DateVisits RequestedVisits [id number] PCP Requested Referral [id number] / ProceduresReferred By ContactReferred To Contact Diagnoses Chronic migraine without aura, intractable, without status migrainosus Procedures PROVIDER ORDERED FOLLOW UP OFFICE/OUTPATIENT [facility] 60-74 MINUTES Bhargavi Ramesh PA-C [address] [place] [address] Referral IDStatusReasonStart DateExpiration DateVisits RequestedVisits [id number] PCP Requested Referral [id number] / ProceduresReferred By ContactReferred To ContactHematology Diagnoses Lymphadenopathy Night sweats Procedures CONSULT TO HEMATOLOGY OFFICE/OUTPATIENT [facility] 60-74 MINUTES Henny Rushing MD [address] [place] [address] Referral IDStatusReasonStart DateExpiration DateVisits RequestedVisits [id number] PCP Requested Referral [id number] / ProceduresReferred By ContactReferred To Contact Diagnoses Migraine without aura and without status migrainosus, not intractable Procedures PROVIDER ORDERED FOLLOW UP OFFICE/OUTPATIENT [facility] 60-74 MINUTES Bhargavi Ramesh PA-C [address] [place] [address] Referral IDStatusReasonStart DateExpiration DateVisits RequestedVisits [id number] PCP Requested Referral [id number] / ProceduresReferred By ContactReferred To ContactCardiology Diagnoses 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) Coagulopathy (HCC) Procedures CONSULT TO CARDIOLOGY OFFICE/OUTPATIENT [facility] 60-74 MINUTES Fuentes Marinelli MD [address] [place] [address] [place] [address] Referral IDStatusReasonStart DateExpiration DateVisits RequestedVisits [id number] PCP Requested Referral /[id number] IDStatusReasonStart DateExpiration DateVisits RequestedVisits [id number] PCP Requested Referral /[id number] / ProceduresReferred By ContactReferred To Contact Diagnoses Moderate asthma without complication, unspecified whether persistent Procedures Full PFT Study With Bronchodilator Nabor Yancey, ASSEMBLING FABRICATOR - MISCELLANEOUS MACHINE OPERATOR [address] [address] Referral IDStatusReasonStart DateExpiration DateVisits RequestedVisits [id number] Required - RTA Chief Complaint and Reason for Visit Chief Complaint Admit Date Right forearm pain x2 weeks post fall Au victoriano 2024 11:37am S59.911A - Unspecified injury of right f orearm, in September 08, 2024 12:10pm Reason for Visit Admit Date Right forearm injury September 08, 2024 11 :37am Additional Source Comments Reason for Visit (unrecogniz ed section and content) ReasonCommentsBack Painonset Sunday night. States spasm pain. Cyst from T4-T7. ReasonCommentsShortness of Breathpt states she tested positive for Covid SundayReasonCommentsFlank PainRight side, 3 days agoChest PainReasonComments Abdominal PainRLQ recent diagnosis hernia on sundayChes PainpressureReason CommentsReceived Outside Medical RecordsPromedicaReasonCommentsAllergic Reaction Unknown trigger, onset ENERGY DIRECTOR. Pt used epi-pen prior to arrival and reports feeling short of breathReasonCommentssurgery clearenceReasonCommentsAdrenalSpecialty Diagnoses / ProceduresReferred By ContactReferred To ContactEndocrinology Diagnoses Symptomatic bradycardia Blood pressure instability Procedures CONSULT TO ENDOCRINOLOGY OFFICE/OUTPATIENT [facility] 60-74 MINUTES Peter Knight APRN.[facility] [address] [place] [address] Referral IDStatusReasonStart DateExpiration DateVisits RequestedVisits [id number] PCP Requested Referral /[id number]hcYvppjsnoKrukbftbftMlzsbnWmqtsnbf ResultsReasonCommentsOtherChest pressureOtherfeels liek lump in throatReason CommentsFollow UpReasonCommentsCoagulopathyReasonCommentsNew PatientFunctional Movement DisorderReasonCommentsNew PatientFluid in sinusesReasonComments Bleeding/BruisingSpecialtyDiagnoses / ProceduresReferred By ContactReferred To Contact Diagnoses Coagulopathy (HCC) Qualitative platelet disorder (HCC) Procedures CONSULT TO MEDICAL GENETICS - GENERAL OFFICE/OUTPATIENT [facility] 60-74 MINUTES MEDICAL GENETICS COUNSELING EACH 30 MINUTES Yan Bass MD [address] [place] [address] [place] [address] [facility] [address] [place] [address] Referral IDStatusReasonStart DateExpiration DateVisits RequestedVisits [id number] PCP Requested Referral Auto-Generated Referral /[id number]vbRjrmogeqfBpdzrmpso / Procedures Referred By ContactReferred To ContactCardiology Diagnoses Symptomatic bradycardia Blood pressure instability Procedures CONSULT TO CARDIOLOGY OFFICE/OUTPATIENT [facility] 60-74 MINUTES Peter Knight APRN.MISCELLANEOUS MACHINE OPERATOR [address] [place] [address] Referral IDStatusReasonStart DateExpiration DateVisits RequestedVisits [id number] PCP Requested Referral [id number]lmzrbQansrkSfcvqbqeFqvjpd UpChronic MigraineReasonCommentsConsultSpecialtyDiagnoses / ProceduresReferred By Contact Referred To ContactPsychology Diagnoses Intractable chronic migraine without aura and without status migrainosus Abnormal involuntary movement Procedures CONSULT TO PSYCHOLOGY OFFICE/OUTPATIENT [facility] 60-74 MINUTES Tracee Mcintyre MD [address] [place] [address] Referral IDStatusReasonStart DateExpiration DateVisits RequestedVisits [id number] Review PCP Requested Referral /[id number] 24 Hour Monitor EvaluationReasonCommentsPT EvalSpecialtyDiagnoses / ProceduresReferred By ContactReferred To ContactREHAB AND SPORTS THERAPY INS Diagnoses Intractable chronic migraine without aura and without status migrainosus Abnormal involuntary movement Procedures CONSULT TO PHYSICAL THERAPY PHYSICAL THERAPY EVALUATION HIGH COMPLEX 45 MINS Tracee Mcintyre MD [address] [place] [address] [facility] [place] [address] [place] [address] Referral IDStatusReasonStart DateExpiration DateVisits RequestedVisits [id number]/1/202212/31/[id number]. ing herniaReasonCommentsInsurance AuthorizationEmgality 120MG/ML syringes (migraine) ReasonCommentsEstablished Patient Follow-UpReasonCommentsResults - CtReason NcvfkjkuDnwgn64 ConcernSpecialtyDiagnoses / ProceduresReferred By Contact Referred To Contact Diagnoses Diffuse pain Decreased activity tolerance Physical deconditioning Procedures WELLNESS CONSULT OFFICE/OUTPATIENT [facility] MDM 60-74 MINUTES Peter Knight APRN.[facility] [address] [place] [address] Referral IDStatusReasonStart DateExpiration DateVisits RequestedVisits [id number] PCP Requested Referral [id number] ReactionOnset prior to arrival. Pt reports her face is burning and feels short of breath. Pt took first dose Levaquin and Valtrex todayReasonCommentsFollow UpReasonCommentsCare Coordinator - OtherReasonCommentsNewSpecialtyDiagnoses / ProceduresReferred By Contact Referred To ContactPULM [facility] Diagnoses History of COVID-19 Procedures CONSULT TO [facility] Sai Perez MD [address] [place] [address] Pulm [facility] [address] [place] [address] Referral IDStatusReBryan [facility] DateExpiration DateVisits RequestedVisits [id number] PCP Requested Referral [id number]xksy states she was at [facility] on 09/19/21, seen Landen Mahmood APRN. She states her lymph nodeswere swollen at that visit. Patient states had COVID 10/2020. She states her bones feel like someone is scraping them. Patient states she will pours out sweat or is freezing symptoms started in May/June and getting a lot worse now.ReasonComments SpirometrySpecialtyDiagnoses / ProceduresReferred By ContactReferred To Contact [facility] Diagnoses History of COVID-19 Post-acute sequelae of COVID-19 (PASC) SOB (shortness of breath) Chronic cough Chest discomfort Palpitation CAVANAUGH (dyspnea on exertion) Dizziness Near syncope Night sweats Orthopnea Anxiety Myalgia Pain in joint, multiple sites Procedures LUNG DIFFUSION CAPACITY (DLCO) DIFFUSING CAPACITY Landen Mahmood APRN.MISCELLANEOUS MACHINE OPERATOR [address] [place] [address] Res[facility] [address] [place] [address] Referral IDStatusReasonStart DateExpiration DateVisits RequestedVisits [id number] Auto-Generated Referral [id number] / ProceduresReferred By ContactReferred To [facility] [place] Diagnoses History of COVID-19 Post-acute sequelae of COVID-19 (PASC) SOB (shortness of breath) Chronic cough Chest discomfort Palpitation CAVANAUGH (dyspnea on exertion) Dizziness Near syncope Night sweats Orthopnea Anxiety Myalgia Pain in joint, multiple sites Procedures SPIROMETRY - BASELINE AND POST DILATOR BRNCDILAT RSPSE SPMTRY PRE&POST-BRNCDILAT ADMN Landen Mahmood APRN.MISCELLANEOUS MACHINE OPERATOR [address] [place] [id number] Res[facility] [address] [place] [address] Referral IDStatusReasonStbelle DateExpiration DateVisits RequestedVisits [id number] Auto-Generated Referral [id number] / ProceduresReferred By ContactReferred To [facility] [place] Diagnoses History of COVID-19 Post-acute sequelae of COVID-19 (PASC) SOB (shortness of breath) Chronic cough Chest discomfort Palpitation CAVANAUGH (dyspnea on exertion) Dizziness Near syncope Night sweats Orthopnea Anxiety Myalgia Pain in joint, multiple sites Procedures LUNG VOLUMES PLETHYSMOGRAPHY LUNG VOLUMES W/WO AIRWAY RESIST Landen Mahmood APRN.MISCELLANEOUS MACHINE OPERATOR [address] [place] [address] Res[facility] [address] [place] [address] Referral IDStatusReasonStbelle DateExpiration DateVisits RequestedVisits [id number] Auto-Generated Referral /[id number] Gen S04MbcfylNviltgefbxgsawi test resultsReasonCommentsFollow UpChronic MigraineReasonCommentsPalpitationsReason CommentsAllergic RhinitisAsthmaReasonCommentscoagulpathyReasonComments Established PatientReasonCommentsAppointmentDownload Pap Therapy Follow UPReason CommentsCare Coordinator - OtherDownloadReasonCommentsSleep ApneaReasonComments Breast screeningReasonCommentsPatient UpdateReasonCommentsFollow UpMigraine SpecialtyDiagnoses / ProceduresReferred By ContactReferred To Contact Diagnoses Chronic migraine without aura, intractable, without status migrainosus Procedures PROVIDER ORDERED FOLLOW UP OFFICE/OUTPATIENT [facility] MDM 60-74 MINUTES Bhargavi Ramesh PA-C [address] [place] [address] Referral IDStatusReasonStart DateExpiration DateVisits RequestedVisits [id number] PCP Requested Referral /[id number]pWssuukni Pap Therapy Follow Up- ReasonCommentsNo ShowReasonCommentsOrdersReasonCommentsOrdersQuestionReason CommentsReferral RequestPA for AjovyReasonCommentsPatient UpdateMedication Refill ConsentReasonCommentsLab OrdersReasonCommentsOrdersAppointmentReason CommentsPAP Therapy Follow UpNOT COMPLIANT NEEDS SD CHIP SENT TO DMEReason CommentsQualitive platelet disorder1 month follow upSpecialtyDiagnoses / ProceduresReferred By ContactReferred To Contact Diagnoses Migraine without aura and without status migrainosus, not intractable Procedures PROVIDER ORDERED FOLLOW UP OFFICE/OUTPATIENT [facility] MDM 60-74 MINUTES Bhargavi Ramesh PA-C [address] [place] [id number] Referral IDStatusReasonStart DateExpiration DateVisits RequestedVisits [id number] PCP Requested Referral [id number] Therapy Follow UpDOWNLOADReasonComments Qualitative platelet disorder5 month follow upReasonCommentsQualitative platelet disorderReasonCommentsnew patientPt states since Oct 2020 she starts with a rash, then hives, tight chest, wheezing, and then her throat closes up. She believes it is essential oils, and products containing oil. Lavender, Lilac etc. SpecialtyDiagnoses / ProceduresReferred By ContactReferred To ContactAllergy Diagnoses Allergic reaction, subsequent encounter Procedures HI OFFICE/OUTPATIENT [facility] 60 MINUTES Cas Galicia MD [address] [place] [address] Christy Painting MD [address] [facility] [address] [place] [address] Referral IDStatusReasonStart DateExpiration DateVisits RequestedVisits [id number] Review Specialty Services Required /[id number] Women VisitSpecialtyDiagnoses / ProceduresReferred By ContactReferred To Contact Diagnoses Moderate asthma without complication, unspecified whether persistent Procedures Full PFT Study With Bronchodilator Nabor Yancey, ASSEMBLING FABRICATOR - MISCELLANEOUS MACHINE OPERATOR [address] [facility] [address] [place] [address] Referral IDStatusReasonStart DateExpiration DateVisits RequestedVisits [id number] Required - RTA1ReasonComments Follow-upEr f/up allergic reactionReasonCommentsFollow-up6 mReasonComments Follow-pd0sOkteztIewmdndyAkn RefillReasonCommentsFollow-upTbh er f/upCovid + 02/20/24 Head feel funny ReasonCommentsFollow-upReasonOnset DateCommentsMed Ldwvrn594ReasonCommentsMigrainePt is here for a follow up for migraines. No change in status, but has been having trouble getting insurance to cover medications.ReasonCommentsSkin DikgoDyeggr-jlQkganhIyimipnnDztepr-qt8hCgpyub Onset DateCommentsMed Ffxxeh4708/11/2024ReasonOnset DateCommentsMed Refill 09/15/2024ReasonCommentsRashSinusitisPressure feels like something blocking sinusEar DrainageArm InjuryRight arm pain with swelling and pain into elbow ReasonCommentsQualitative platelet disorder1 year follow upReasonOnset Date CommentsMed Hkebgz3205/18/2024ReasonCommentschronic rhinosinusitisRight nostril SpecialtyDiagnoses / ProceduresReferred By ContactReferred To Contact Otolaryngology Diagnoses Chronic rhinosinusitis Procedures HI OFFICE OUTPATIENT VISIT 60-[address] [facility] [phone] (SNOMED CT) - AMB REFERRAL TO ENT Cas Galicia MD [address] [place] [address] Phone: tel: fax: Terri Han MD [address] [facility] [address] [place] [address] Phone: tel: fax: Referral IDStatusReasonStart DateExpiration DateVisits RequestedVisits [id number] f/u Ordered Prescriptions (unrec ognized section and content) PrescriptionSigDispensedRefillsStart DateEnd Date lidocaine (LIDODERM) 5 % Place 1 patch onto the skin daily for 10 days 12 hours on, 12 hours off. 10 patch / tiZANidine (ZANAFLEX) 4 MG tablet Take 1 tablet by mouth every 8 hours as needed (Back pain) 10 tablet methylPREDNISolone (MEDROL, ERMA,) 4 MG tablet Take by mouth. 1 kit /rescriptionSigDispensedRefillsStart DateEnd Date albuterol (PROVENTIL) (2.5 MG/3ML) 0.083% nebulizer solution Take 3 mLs by nebulization every 6 hours as needed for Wheezing 30 each benzonatate (TESSALON) 100 MG capsule Take 1 capsule by mouth 3 times daily as needed for Cough 20 capsule /rescriptionSigDispensedRefillsStart DateEnd metoclopramide (REGLAN) 10 MG tablet Take 1 tablet by mouth 3 times daily as needed (vomiting) 12 tablet /rescriptionSigDispensedRefillsStart DateEnd HYDROcodone-acetaminophen (NORCO) 5-325 MG per tablet Indications:Abdominal pain, acute, right lower quadrantTake 1 tablet by mouth every 8 hours as needed for Pain for up to 2 days. Intended supply: 3 days. Take lowest dose possible to manage pain 6 tablet /rescriptionSigDispensedRefillsSt DateEnd famotidine (PEPCID) 20 MG tablet Take 1 tablet by mouth 2 times daily for 5 days 10 tablet /06/2021 cetirizine (ZYRTEC) 10 MG tablet Take 1 tablet by mouth 2 times daily for 5 days 10 tablet /06/2021 predniSONE (DELTASONE) 10 MG tablet Take 4 tablets by mouth daily for 5 days 20 tablet EPINEPHrine (EPIPEN 2-ERMA) 0.3 MG/0.3ML SOAJ injection Inject 0.3 mLs into the muscle once as needed (severe allergic reaction) 2 each rescriptionSigDispensedRefillsSt DateEnd methocarbamol (ROBAXIN) 500 MG tablet 1 to 2 pills by mouth 4 times daily as needed muscle pain/spasm 56 tablet Scheduled Active and Recently Administ ered Medications (unrecognized section and content) Medication Order// acetaminophen (TYLENOL) tablet 650 mg (COMPLETED) 650 mg, Oral, ONCE, On Sun11/01/20 at 1430, For 1 dose, Maximum dose of acetaminophen is 4000 mg from all sources in 24 hours. * 1439 (Given - Provider: Maia Justin RN) Medication Order// benzonatate (TESSALON) capsule 100 mg 100 mg, Oral, 3 TIMES DAILY PRN, Cough, Starting on Sun11/01/20 at 1428 * 1439 (Given - Provider: Maia Justin, RN) Medication Order///01/2022 0.9 % sodium chloride bolus (COMPLETED) 1,000 mL, IntraVENous, at 1,000 mL/hr, Administer over 1 Hours, ONCE, On 04/16/21 at 1945, For 1dose * 2007 (New Bag - Provider: Nicole Smith, CYNTHIA) * 234 (Stopped - Provider: Nicole Smith, CYNTHIA) diphenhydrAMINE (BENADRYL) injection 25 mg (COMPLETED) 25 mg, IntraVENous, ONCE, On 04/16/21 at 2200, For 1 dose * 2221 (Given - Provider: Luisana Reeder RN) famotidine (PEPCID) injection 20 mg (COMPLETED) 20 mg, IntraVENous, ONCE, On 04/16/21 at 2145, For 1 dose, IV Push over minimum of 2 minutes - Dilute with 10 mL NS * 222 (Given - Provider: Luisana Reeder RN) metoclopramide (REGLAN) injection 10 mg (COMPLETED) 10 mg, IntraVENous, ONCE, On 04/16/21 at 2200, For 1 dose, Iv piggyback plz * 2221 (Given - Provider: Luisana Reeder, CYNTHIA) ondansetron (ZOFRAN) injection 4 mg (COMPLETED) 4 mg, IntraVENous, ONCE, On 04/16/21 at 2030, For 1 dose * 2007 (Given - Provider: Nicole Smith RN) Medication Order/// 0.9 % sodium chloride bolus (COMPLETED) 1,000 mL, IntraVENous, at 1,000 mL/hr, Administer over 1 Hours, ONCE, On Sun05/20/21 at 1300, For 1dose * 1347 (New Bag - Provider: Sanaz You, CYNTHIA) * 1543 (Stopped - Provider: Ofelia Cain RN) morphine (PF) injection 2 mg (COMPLETED) 2 mg, IntraVENous, ONCE, 1 dose, On Sun05/20/21 at 1745, If oral and IV narcotics ordered, use oralfirst and only use IV if oral is ineffective or cannot take oral. Do Not give oral and IV within 1 hour of each other unless specifically ordered. * 1815 (Given - Provider: Sanaz You, CYNTHIA) Medication Order// albuterol (PROVENTIL) nebulizer solution 2.5 mg (COMPLETED) 2.5 mg, Nebulization, ONCE, 1 dose, On 06/04/21 at 1630, Initiate RT Bronchodilator Protocol: Yes, Children under 5 * 1634 (Given - Provider: Pallavi Galan RCP) diphenhydrAMINE (BENADRYL) injection 50 mg (COMPLETED) 50 mg, IntraVENous, ONCE, 1 dose, On 06/04/21 at 1630 * 1633 (Given - Provider: Terri Painter, CYNTHIA) famotidine (PEPCID) 20 mg in sodium chloride (PF) 10 mL injection (COMPLETED) 20 mg, IntraVENous, ONCE, 1 dose, On 06/04/21 at 1630, Dilute with 5-10 mL 0.9% sodium chloride.Administer over 2 minutes. * 1633 (Given - Provider: Terri Painter RN) LORazepam (ATIVAN) injection 1 mg (COMPLETED) 1 mg, IntraVENous, ONCE, 1 dose, On 06/04/21 at 1715 * 1710 (Given - Provider: Terri Painter, CYNTHIA) methylPREDNISolone sodium (SOLU-MEDROL) injection 125 mg (COMPLETED) 125 mg, IntraVENous, ONCE, On 06/04/21 at 1630, For 1 dose * 1632 (Given - Provider: Terri Painter RN) Medication Order// orphenadrine (NORFLEX) injection 60 mg (COMPLETED) 60 mg, IntraVENous, ONCE, 1 dose, On Sun06/21/21 at 0030 * 0042 (Given - Provider: Flory León RN) Medication Order//02/2021 diphenhydrAMINE (BENADRYL) injection 25 mg (COMPLETED) 25 mg, IntraVENous, ONCE, 1 dose, On Sun09/05/21 at 1415 * 1414 (Given - Provider: Clementina Wiggins RN) EPINEPHrine (EPINEPHrine HCL) 1 mg/mL injection 0.3 mg (COMPLETED) 0.3 mg, IntraMUSCular, ONCE, 1 dose, On Sun09/05/21 at 1415 * 1410 (Given - Provider: Clementina Wiggins RN) famotidine (PEPCID) 20 mg in sodium chloride (PF) 10 mL injection (COMPLETED) 20 mg, IntraVENous, ONCE, 1 dose, On Sun09/05/21 at 1415, IV Push over minimum of 2 minutes - Dilutewith 10 mL NS * 1416 (Given - Provider: Clementina Wiggins RN) ipratropium-albuterol (DUONEB) nebulizer solution 1 ampule (COMPLETED) 1 ampule, Inhalation, ONCE, 1 dose, On Sun09/05/21 at 1445, Initiate RT Bronchodilator Protocol: Yes- ED protocol * 1440 (Given - Provider: Bufyf Salinas RCP) methylPREDNISolone sodium (SOLU-MEDROL) injection 60 mg (COMPLETED) 60 mg, IntraVENous, ONCE, On Sun09/05/21 at 1415, For 1 dose * 1415 (Given - Provider: Clementina Wiggins RN) INFORMATION SOURCE (unrecogn ized section and content) DATE CREATED AUTHOR 03/08/[address] [facility] DATE CREATED AUTHOR AUTHOR'S ORGANIZ ATION 04/26/2021 [facility] DATE CREATED AUTHOR AUTHOR'S ORGANIZ ATION 07/27/2021 [facility] DATE CREATED AUTHOR AUTHOR'S ORGANIZ ATION 12/22/2021 [facility] DATE CREATED AUTHOR AUTHOR'S ORGANIZ ATION 04/07/2022 [facility] DATE CREATED AUTHOR AUTHOR'S ORGANIZ ATION 06/17/2022 [facility] DATE CREATED AUTHOR AUTHOR'S ORGANIZ ATION 01/05/2024 [facility] DATE CREATED AUTHOR AUTHOR'S ORGANIZ ATION 02/07/2024 [facility] DATE CREATED AUTHOR AUTHOR'S ORGANIZ ATION 08/25/2024 [facility] DATE CREATED AUTHOR AUTHOR'S ORGANIZ ATION 09/10/2024 [facility] DATE CREATED AUTHOR AUTHOR'S ORGANIZ ATION 10/01/2024 [facility] DATE CREATED AUTHOR AUTHOR'S ORGANIZ ATION 10/12/2024 [facility] DATE CREATED AUTHOR AUTHOR'S ORGANIZ ATION 11/10/2024 [facility] DATE CREATED AUTHOR AUTHOR'S ORGANIZ ATION 11/25/2024 [facility] DATE CREATED AUTHOR AUTHOR'S ORGANIZ ATION 12/01/2024 [facility] DATE CREATED AUTHOR AUTHOR'S ORGANIZ ATION 12/02/2024 [facility] EPIC Care Teams (unrecognized sec tion and content) Team MemberRelationshipSpecialtyStart DateEnd Date Cas Galicia MD PCP - General09/04/11Team MemberRelationshipSpecialtyStart DateEnd Date Cas Galicia MD PCP - General09/04/11Team MemberRelationshipSpecialtyStart DateEnd Date Cas Galicia PCP - GeneralFamily Practice02/20/14Team MemberRelationshipSpecialtyStart DateEnd Date Cas Galicia MD PCP - General09/04/11Team MemberRelationshipSpecialtyStart DateEnd Date Cas Galicia PCP - GeneralFamily Practice02/20/14Team MemberRelationshipSpecialtyStart DateEnd Date Cas Galicia PCP - GeneralFamily Practice02/20/14Team MemberRelationshipSpecialtyStart DateEnd Date Cas Galicia PCP - GeneralFamily Practice02/20/14Team MemberRelationshipSpecialtyStart DateEnd Date Cas Galicia PCP - GeneralFamily Practice02/20/14Team MemberRelationshipSpecialtyStart DateEnd Date Cas Galicia PCP - GeneralFamily Practice02/20/14Team MemberRelationshipSpecialtyStart DateEnd Date Cas Galicia PCP - GeneralFamily Practice02/20/14Team MemberRelationshipSpecialtyStart DateEnd Date Cas Galicia PCP - GeneralFamily Practice02/20/14Team MemberRelationshipSpecialtyStart DateEnd Date Cas Galicia MD PCP - General09/04/11Team MemberRelationshipSpecialtyStart DateEnd Date Cas Galicia PCP - GeneralFamily Practice02/20/14Team MemberRelationshipSpecialtyStart DateEnd Date Cas Galicia PCP - GeneralFamily Practice02/20/14Team MemberRelationshipSpecialtyStart DateEnd Date Cas Galicia PCP - GeneralFamily Practice02/20/14Team MemberRelationshipSpecialtyStart DateEnd Date Cas Galicia PCP - GeneralFamily Practice02/20/14Team MemberRelationshipSpecialtyStart DateEnd Date Cas Galicia PCP - GeneralFamily Practice02/20/14Team MemberRelationshipSpecialtyStart DateEnd Date Cas Galicia PCP - GeneralFamily Practice02/20/14Team MemberRelationshipSpecialtyStart DateEnd Date Cas Galicia PCP - GeneralFamily Practice02/20/14Team MemberRelationshipSpecialtyStart DateEnd Date Cas Galicia PCP - GeneralFamily Practice02/20/14 Sai Perez MD [address] [place], [place] [id number] Primary Staff PhysicianCardiology07/21/21Team MemberRelationshipSpecialtyStart DateEnd Date Cas Galicia PCP - GeneralFamily Practice02/20/14 Sai Perez MD [address] [place] [address] Primary Staff PhysicianCardiology07/21/21Team MemberRelationshipSpecialtyStart DateEnd Date Cas Galicia PCP - GeneralFamily Practice02/20/14 Sai Perez MD [address] [place] [address] Primary Staff PhysicianCardiology07/21/21Team MemberRelationshipSpecialtyStart DateEnd Date Cas Galicia PCP - GeneralFamily Practice02/20/14Team MemberRelationshipSpecialtyStart DateEnd Date Cas Galicia PCP - GeneralFamily Practice02/20/14 Sai Perez MD [address] [place], [place] [id number] Primary Staff PhysicianCardiology07/21/21Team MemberRelationshipSpecialtyStart DateEnd Date Cas Galicia PCP - Generalmily Practice02/20/14 Sai Perez MD [address] [place] [address] Primary Staff PhysicianCardiology07/21/21Team MemberRelationshipSpecialtyStart DateEnd Date Cas Galicia PCP - Generalmily Practice02/20/14 Sai Perez MD [address] [place] [address] Primary Staff PhysicianCardiology07/21/21 Rubens Tim [address] [facility] [place] [address] ReferringOB/GYN08/05/21Team MemberRelationshipSpecialtyStart DateEnd Date Cas Galicia PCP - Generalmily Practice02/20/14 Sai Perez MD [address] [place] [address] Primary Staff PhysicianCardiology07/21/21 Rubens Tim [facility] [place] [address] ReferringOB/GYN08/05/21Team MemberRelationshipSpecialtyStart DateEnd Date Cas Galicia PCP - GeneralFamily Practice02/20/14 Sai Perez MD [address] [place] [address] Primary Staff PhysicianCardiology07/21/21 Rubens Tim [facility] [place] [address] ReferringOB/GYN08/05/21Team MemberRelationshipSpecialtyStart DateEnd Date Cas Galicia PCP - General acute hospital Practice02/20/14 Sai Perez MD [address] [place] [address] Primary Staff PhysicianCardiology07/21/21 Rubens Tim [address] [place], [place] [address] [address] ReferringOB/GYN08/05/21Team MemberRelationshipSpecialtyStart DateEnd Date Cas Galicia [facility]14 Sai Perez MD [address] [place] [address] Primary Staff PhysicianCardiology07/21/21 Rubens Tim [facility] [place] [address] ReferringOB/GYN08/05/21Team MemberRelationshipSpecialtyStart DateEnd Date Cas Galicia PCP - Generalmily Practice02/20/14 Sai Perez MD [address] [place] [address] Primary Staff PhysicianCardiology07/21/21 Rubens Tim [address] [place] [address] ReferringOB/GYN08/05/21Team MemberRelationshipSpecialtyStart DateEnd Date Cas Galicia PCP - GeneralFamily Practice02/20/14 Sai Perez MD [address] [facility] [place] [address] Primary Staff PhysicianCardiology07/21/21 Rubens Tim, DO [address] [place], [place] [address] [place], [facility] ReferringOB/GYN08/05/21Team MemberRelationshipSpecialtyStart DateEnd Date Cas Galicia PCP - GeneralFamily Practice02/20/14 Sai Perez MD [address] [facility] [address] Primary Staff PhysicianCardiology07/21/21 Rubens Tim, DO [address] [facility] [address] [place], [facility]11 ReferringOB/GYN08/05/21Team MemberRelationshipSpecialtyStart DateEnd Date Cas Galicia PCP - GeneralFamily Practice02/20/14 Sai Perez MD [address] [facility] [place] [address] Primary Staff PhysicianCardiology6/16/22 Rubens Tim, DO [address] [place] [address] ReferringOB/GYN08/05/21Team MemberRelationshipSpecialtyStart DateEnd Date Cas Galicia PCP - GeneralFamily Practice02/20/14 Sai Perez MD [address] [place], [place] [id number] Primary Staff PhysicianCardiology07/21/21 Rubens Tim, DO [address] [place], [facility]11 ReferringOB/GYN08/05/21Team MemberRelationshipSpecialtyStart DateEnd Date Cas Galicia PCP - [facility]/20/14 Sai Perez MD [address] [place] [address] Primary Staff PhysicianCardiology07/21/21 Rubens Tim, DO [address] [place] [address] ReferringOB/GYN08/05/21Team MemberRelationshipSpecialtyStart DateEnd Date Cas Galicia MD PCP - General09/04/11Team MemberRelationshipSpecialtyStart DateEnd Date Cas Galicia PCP - [facility] Practice02/20/14 Sai Perez MD [address] [place] [address] Primary Staff PhysicianCardiology07/21/21 Rubens Tim, DO [address] [place] [address] ReferringOB/GYN08/05/21Team MemberRelationshipSpecialtyStart DateEnd Date Cas Galicia PCP - Generalmily Practice02/20/14 Sai Perez MD [address] [place] [address] Primary Staff PhysicianCardiology07/21/21 Rubens Tim, DO [address] [place], [facility]11 ReferringOB/GYN08/05/21Team MemberRelationshipSpecialtyStart DateEnd Date Cas Galicia PCP - General acute hospital Practice02/20/14 Sai Perez MD [address] [place] [address] Primary Staff PhysicianCardiology07/21/21 Rubens Tim, DO [address] [place], [facility]11 ReferringOB/GYN08/05/21Te MemberRelationshipSpecialtyStart DateEnd Date Cas Galicia PCP - General acute hospital Practice02/20/14 Sai Perez MD [address] [place] [address] Primary Staff PhysicianCardiology07/21/21 Rubnes Tim, DO [address] [place] [address] ReferringOB/GYN08/05/21Team MemberRelationshipSpecialtyStart DateEnd Date Cas Galicia PCP - Generalmi Practice02/20/14 Sai Perez MD [address] [place] [address] Primary Staff PhysicianCardiology07/21/21 Rubens Tim, DO [address] [place] [address] ReferringOB/GYN08/05/21Team MemberRelationshipSpecialtyStart DateEnd Date Cas Galicia PCP - General acute hospital Practice02/20/14 Sai Perez MD [address] [place] [address] Primary Staff PhysicianCardiology07/21/21 Rubens Tim, DO [address] [place] [address] ReferringOB/GYN08/05/21Team MemberRelationshipSpecialtyStart DateEnd Date Cas Galicai PCP - General acute hospital Practice02/20/14 Sai Perez MD [address] [place] [address] Primary Staff PhysicianCardiology07/21/21 Rubens Tim, DO [address] [place] [address] ReferringOB/GYN08/05/21Team MemberRelationshipSpecialtyStart DateEnd Date Cas Galicia PCP - GeneralFamily Practice02/20/14 Sai Perez MD [address] [place] [address] Primary Staff PhysicianCardiology07/21/21 Rubens Tim, DO [address] [address] ReferringOB/GYN08/05/21Team MemberRelationshipSpecialtyStart DateEnd Date Cas Galicia PCP - General acute hospital Practice02/20/14 Sai Perez MD [address] [place] [address] Primary Staff PhysicianCardiology07/21/21 Rubens Tim, DO [address] [place] [address] ReferringOB/GYN08/05/21Te MemberRelationshipSpecialtyStart DateEnd Date Cas Galicia PCP - Generalmi Practice02/20/14 Sai Perez MD [address] [place] [address] Primary Staff PhysicianCardiology07/21/21 Rubens Tim, DO [address] [place], [place] [address] ReferringOB/GYN08/05/21Team MemberRelationshipSpecialtyStart DateEnd Date Cas Galicia PCP - GeneralFamily Practice02/20/14 Sai Perez MD [address] [place] [address] Primary Staff PhysicianCardiology07/21/21 Rubens Tim, DO [address] [place] [address] ReferringOB/GYN7Team MemberRelationshipSpecialtyStart DateEnd Date Cas Galicia PCP - GeneralFamily Practice02/20/14 Sai Perez MD [address] [facility] [place] [address] Primary Staff PhysicianCardiology07/21/21 Rubens Tim, DO [address] [address] ReferringOB/GYN08/05/21Team MemberRelationshipSpecialtyStart DateEnd Date Cas Galicia PCP - Generalmily Medicine02/20/14 Sai Perez MD [address] [place] [address] Primary Staff PhysicianCardiology07/21/21 Rubens Tim, DO [address] [address] ReferringOB/GYN08/05/21Team MemberRelationshipSpecialtyStart DateEnd Date Cas Galicia PCP - GeneralFamily Medicine02/20/14 Sai Perez MD [address] [facility] [place] [address] Primary Staff PhysicianCardiology07/21/21 Rubens Tim, DO [address] [place] [address] ReferringOB/GYN08/05/21Team MemberRelationshipSpecialtyStart DateEnd Date Cas Galicia PCP - Generalmily Medicine02/20/14 Sai Perez MD [address] [place] [address] Primary Staff PhysicianCardiology07/21/21 Rubens Tim, DO [address] [place] [address] ReferringOB/GYN08/05/21Te MemberRelationshipSpecialtyStart DateEnd Date Cas Galicia PCP - General acute hospital Medicine02/20/14 Sai Perez MD [address] [place] [address] Primary Staff PhysicianCardiology07/21/21 Rubens Tim, DO [address] [place], [facility]11 ReferringOB/GYN08/05/21Team MemberRelationshipSpecialtyStart DateEnd Date Cas Galicia PCP - General acute hospital Medicine02/20/14 Sai Perez MD [address] [place] [address] Primary Staff PhysicianCardiology07/21/21 Rubens Tim, DO [address] [place] [address] ReferringOB/GYN08/05/21Team MemberRelationshipSpecialtyStart DateEnd Date Cas Galicia PCP - [facility] Medicine02/20/14 Sai Perez MD [address] [place] [address] Primary Staff PhysicianCardiology07/21/21 Rubens Tim, DO [address] [address] ReferringOB/GYN08/05/21Team MemberRelationshipSpecialtyStart DateEnd Date Cas Galicia PCP - General acute hospital Medicine02/20/14 Sai Perez MD [address] [place] [address] Primary Staff PhysicianCardiology07/21/21 Rubens Tim, DO [address] [place] [address] ReferringOB/GYN08/05/21Team MemberRelationshipSpecialtyStart DateEnd Date Cas Galicia PCP - General acute hospital Medicine02/20/14 Sai Perez MD [address] [place] [address] Primary Staff PhysicianCardiology07/21/21 Rubens Tim, DO [address] [address] ReferringOB/GYN08/05/21Team MemberRelationshipSpecialtyStart DateEnd Date Cas Galicia PCP - [facility]02/20/14 Sai Perez MD [address] [place] [address] Primary Staff PhysicianCardiology07/21/21 Rubens Tim, DO [address] [place], [facility]11 ReferringOB/GYN08/05/21Team MemberRelationshipSpecialtyStart DateEnd Date Cas Galicia PCP - General acute hospital Medicine02/20/14 Sai Perez MD [address] [place] [address] Primary Staff PhysicianCardiology07/21/21 Rubens Tim, DO [address] [place] [address] ReferringOB/GYN08/05/21Te MemberRelationshipSpecialtyStart DateEnd Date Cas Galicia PCP - General acute hospital Medicine02/20/14 Sai Perez MD [address] [place] [address] Primary Staff PhysicianCardiology07/21/21 Rubens Tim, DO [address] [place] [address] ReferringOB/GYN08/05/21Team MemberRelationshipSpecialtyStart DateEnd Date Cas Galicia PCP - Generalmily Medicine02/20/14 Sai Perez MD [address] [place] [address] Primary Staff PhysicianCardiology07/21/21 Rubens Tim, DO [address] [address] ReferringOB/GYN08/05/21Team MemberRelationshipSpecialtyStart DateEnd Date Cas Galicia PCP - Generalmi Medicine02/20/14 Sai Perez MD [address] [place] [address] Primary Staff PhysicianCardiology07/21/21 Rubens Tim, DO [address] [place], [facility]11 ReferringOB/GYN08/05/21Team MemberRelationshipSpecialtyStart DateEnd Date Cas Galicia MD PCP - General09/04/11Team MemberRelationshipSpecialtyStart DateEnd Date Cas Galicia PCP - Generalmily Medicine02/20/14 Sai Perez MD [address] [place] [address] Primary Staff PhysicianCardiology07/21/21 Rubens Tim, DO [address] [place] [address] ReferringOB/GYN08/05/21Team MemberRelationshipSpecialtyStart DateEnd Date Cas Galicia PCP - GeneralFamily Medicine02/20/14 Sai Perez MD [address] [place] [address] Primary Staff PhysicianCardiology07/21/21 Rubens Tim, DO [address] [address] ReferringOB/GYN08/05/21Team MemberRelationshipSpecialtyStart DateEnd Date Cas Galicia PCP - General acute hospital Medicine02/20/14 Sai Perez MD [address] [place] [address] Primary Staff PhysicianCardiology07/21/21 Rubens Tim, DO [address] [place], [facility]11 ReferringOB/GYN08/05/21Te MemberRelationshipSpecialtyStart DateEnd Date Cas Galicia [facility]14 Sai Perez MD [address] [place] [address] Primary Staff PhysicianCardiology07/21/21 Rubens Tim, DO [address] [place] [address] ReferringOB/GYN08/05/21Team MemberRelationshipSpecialtyStart DateEnd Date Cas Galicia PCP - Generalmily Medicine02/20/14 Sai Perez MD [address] [place] [address] Primary Staff PhysicianCardiology07/21/21 Rubens Tim, DO [address] [place], [place] [address] ReferringOB/GYN08/05/21Team MemberRelationshipSpecialtyStart DateEnd Date Cas Galicia PCP - GeneralFamily Medicine02/20/14 Sai Perez MD [address] [place] [address] Primary Staff PhysicianCardiology07/21/21 Rubens Tim, DO [address] [place], [place] [address] ReferringOB/GYN08/05/21Team MemberRelationshipSpecialtyStart DateEnd Date Cas Galicia PCP - Generalmily Medicine02/20/14 Sai Perez MD [address] [place] [address] Primary Staff PhysicianCardiology07/21/21 Rubens Tim, DO [address] [place], [facility]11 ReferringOB/GYN08/05/21Team MemberRelationshipSpecialtyStart DateEnd Date Cas Galicia PCP - [facility] Medicine02/20/14 Sai Perez MD [address] [place] [address] Primary Staff PhysicianCardiology07/21/21 Rubens Tim, DO [address] [facility] [place] [address] ReferringOB/GYN08/05/21Team MemberRelationshipSpecialtyStart DateEnd Date Cas Galicia PCP - GeneralFamily Medicine02/20/14 Sai Perez MD [address] [place] [address] Primary Staff PhysicianCardiology07/21/21 Rubens Tim, DO [address] [facility] [address] [place], [facility]11 ReferringOB/GYN08/05/21Team MemberRelationshipSpecialtyStart DateEnd Date Cas Galicia PCP - Generalmily Medicine02/20/14 Sai Perez MD [address] [place] [address] Primary Staff PhysicianCardiology07/21/21 Rubens Tim DO [address] [place], [place] [address] [place] [place], [facility] ReferringOB/GYN08/05/21Team MemberRelationshipSpecialtyStart DateEnd Date Cas Galicia MD PCP - GeneralFamily Qhawpzis54/1/23Team MemberRelationshipSpecialtyStart DateEnd Date Cas Galicia PCP - GeneralFamily Medicine02/20/14 Sai Perez MD [address] [place], [place] [address] Primary Staff PhysicianCardiology07/21/21 Rubens Tim DO [address] [place] [address] [place] [address] ReferringOb/Gyn08/05/21Team MemberRelationshipSpecialtyStart DateEnd Date Cas Galicia PCP - Generalmily Medicine02/20/14 Sai Perez MD [address] [place] [id number] Primary Staff PhysicianCardiology07/21/21 Rubens Tim DO [address] [place], [place] [address]Re[address] [place] [address] ReferringOb/Gyn08/05/21Team MemberRelationshipSpecialtyStart DateEnd Date Cas Galicia MD [address] [place] [address] PCP - GeneralFamily Medicine04/09/23Team MemberRelationshipSpecialtyStart DateEnd Date Cas Galicia MD [address] [place] [address] PCP - GeneralFamily Medicine04/09/23Team MemberRelationshipSpecialtyStart DateEnd Date Cas Galicia MD [address] [place] [address] PCP - GeneralFamily Medicine04/09/23Team MemberRelationshipSpecialtyStart DateEnd Date Cas Galicia MD [address] [place] [address] PCP - GeneralFamily Medicine04/09/23Team MemberRelationshipSpecialtyStart DateEnd Date Cas Galicia MD [address] [place] [address] PCP - GeneralFamily Medicine04/09/23Team MemberRelationshipSpecialtyStart DateEnd Date Cas Galicia MD PCP - General09/04/11Team MemberRelationshipSpecialtyStart DateEnd Date Cas Galicia MD PCP - General09/04/11Team MemberRelationshipSpecialtyStart DateEnd Date Cas Galicia MD [address] [place] [address] PCP - GeneralFamily Medicine04/09/23 Cas Galicia MD [address] [place] [address] PCP - [place] Irkcbdkctq59/1/24Team MemberRelationshipSpecialtyStart DateEnd Date Cas Galicia MD [address] [place] [address] PCP - GeneralFamily Medicine04/09/23 Cas Galicia MD [address] [place] [address] PCP - [place] [employer]06/06/23Team MemberRelationshipSpecialtyStart DateEnd Date Cas Galicia MD [address] [place] [address] PCP - GeneralFamily Medicine04/09/23 Cas Galicia MD [address] [place] [address] PCP - [place] [employer]06/06/23Team MemberRelationshipSpecialtyStart DateEnd Date Cas Galicia MD [address] [place] [address] PCP - Generalmily Medicine04/09/23 Cas Galicia MD [address] [place] [address] PCP - [place] [employer]06/06/23Team MemberRelationshipSpecialtyStart DateEnd Date Cas Galicia MD [address] [place] [address] PCP - GeneralFamily Medicine04/09/23 Cas Galicia MD [address] [place] [address] PCP - [place] [employer]06/06/23Team MemberRelationshipSpecialtyStart DateEnd Date Cas Galicia MD [address] [place] [address] PCP - GeneralFamily Medicine04/09/23 Cas Galicia MD [address] [place] [address] PCP - [place] [employer]06/06/23Team MemberRelationshipSpecialtyStart DateEnd Date Cas Galicia MD [address] [place] [address] PCP - GeneralFamily Medicine04/09/23 Cas Galicia MD [address] [place] [address] PCP - [place] Xmgiciilml51/1/24Team MemberRelationshipSpecialtyStart DateEnd Date Cas Galicia MD [address] [place] [address] PCP - GeneralFamily Medicine04/09/23 Cas Galicia MD [address] [place] [address] PCP - [place] Qpgxgrkjli66/1/24Team MemberRelationshipSpecialtyStart DateEnd Date Cas Galicia MD [address] [place] [address] PCP - GeneralFamily Medicine04/09/23 Cas Galicia MD [address] [place] [address] PCP - [place] Lrqvvkkvdt58/1/24Team MemberRelationshipSpecialtyStart DateEnd Date Cas Galicia MD [address] [place] [address] PCP - Generalmily Medicine04/09/23 Cas Galicia MD [address] [place] [address] PCP - [place] Zcwxgkhfjw11/1/24Team MemberRelationshipSpecialtyStart DateEnd Date Cas Galicia MD PCP - Generalmily Fqeguxrr53/14/21Team MemberRelationshipSpecialtyStart Date End Date Cas Galicia MD [address] [place] [address] PCP - Generalmily Medicine04/09/23 Cas Galicia MD [address] [place] [address] PCP - [place] Fbdfpbgnch85/1/24Team MemberRelationshipSpecialtyStart DateEnd Date Cas Galicia MD [address] [place] [address] PCP - Generalmily Medicine04/09/23 Cas Galicia MD [address] [place] [address] PCP - [place] Uyjcbcrscu46/1/24Team MemberRelationshipSpecialtyStart DateEnd Date Cas Galicia MD [address] [place] [facility] [address] [facility] - [facility] Sybzjsza46/14/21Team MemberRelationshipSpecialtyStart Date End Date Cas Galicia MD [address] [place] [facility] [address] PCP - GeneralUnity[facility] Rvcrrdkg22/14/21Team MemberRelationshipSpecialtyStart Date End Date Cas Galicia MD [address] [place] [facility] [address] PCP - General[facility] Aoszwmhh78/14/21Team MemberRelationshipSpecialtyStart Date End Date Cas Galicia MD [address] [place] [facility] [address] [facility]20Team MemberRelationshipSpecialtyStart Date End Date Cas Galicia MD [address] [place] [facility] [place] [address] PCP - GeneralUnity[facility] Rzeffhoh85/14/21Team MemberRelationshipSpecialtyStart Date End Date Cas Galicia MD PCP - GeneralFamily Omijcmwt04/14/21Team MemberRelationshipSpecialtyStart Date End Date Cas aGlicia MD PCP - GeneralFamily Jxcxzusu53/14/21Team MemberRelationshipSpecialtyStart Date End Date Cas Galicia MD PCP - GeneralFamily Ssoveobd88/14/21Team MemberRelationshipSpecialtyStart Date End Date Cas Galicia MD PCP - GeneralFamily Wovwktia08/14/21Team MemberRelationshipSpecialtyStart Date End Date Cas Galicia MD PCP - GeneralFamily Qqsndful92/14/21Team MemberRelationshipSpecialtyStart Date End Date Cas Galicia MD [address] [place] [address] PCP - GeneralFamily Medicine04/09/23 Cas Galicia MD [address] [place] [address] PCP - [place] Phthkonskc00/1/24Team MemberRelationshipSpecialtyStart DateEnd Date Cas Galicia MD [address] [place] [address] PCP - GeneralFamily Medicine04/09/23 Cas Galicia MD [address] [place] [address] PCP - [place] Ciozkumlsr61/1/24Team MemberRelationshipSpecialtyStart DateEnd Date Cas Galicia MD PCP - GeneralFamily Wkyhvvhr15/14/21Team MemberRelationshipSpecialtyStart Date End Date Cas Galicia MD [address] [place] [address] PCP - GeneralFamily Medicine04/09/23Team MemberRelationshipSpecialtyStart DateEnd Date Cas Galicia MD [address] [place] [address] PCP - GeneralFamily Medicine04/09/23Team MemberRelationshipSpecialtyStart DateEnd Date Cas Galicia MD [address] [place] [address] PCP - GeneralFamily Medicine04/09/23Team MemberRelationshipSpecialtyStart DateEnd Date Cas Galicia MD [address] [place] [address] PCP - GeneralFamily Medicine04/09/23Team MemberRelationshipSpecialtyStart DateEnd Date Cas Galicia MD [address] [place] [address] PCP - GeneralFamily Medicine04/09/23Team MemberRelationshipSpecialtyStart DateEnd Date Cas Galicia MD PCP - GeneralFamily Lmpxcaqf33/14/21Team MemberRelationshipSpecialtyStart Date End Date Cas Galicia MD PCP - General09/04/11 Team Status: Active Member Role Status Dates Cas Galicia MD Primary Care Provider Active Team Status: Inactive Member Role Status Dates Cas Galicia MD Primary Care Provider Active S tart: September 08, 2024 End: September 08, 2024Oliva Becerra APRN EXTER[employer]OR INSTALLER-CAttending ProviderActive Start: September 08, 2024 End: September 08, 2024 Team Status: Active Member Role Status Dates Cas Galicia MD Primary Care Provider Active S tart: September 08, 2024 Olivaawa Becerra APRN EXTERIOR DOOR INSTALLER-CAttending ProviderActiveStart: September 08, 2024 Team MemberRelationshipSpecialtyStart DateEnd Date Cas Galicia MD PCP - Generalmily Lligmzmo54/14/21Team MemberRelationshipSpecialtyStart Date End Date Cas Galicia MD [address] [place] [address] PCP - Generalmily Medicine04/09/23Team MemberRelationshipSpecialtyStart DateEnd Date Cas Galicia MD [address] [place] [address] PCP - Generalmily Medicine04/09/23Team MemberRelationshipSpecialtyStart DateEnd Date Cas Galicia MD [address] [place] [address] PCP - Generalmily Medicine04/09/23Team MemberRelationshipSpecialtyStart DateEnd Date Cas Galicia MD PCP - Generalmily Medicine02/20/14 Sai Perez MD [address] [place] [address] Primary Staff PhysicianCardiology07/21/21 Rubens Tim DO [address] [place] [address] [place] [address] ReferringOb/Gyn08/05/21Team MemberRelationshipSpecialtyStart DateEnd Date Cas Galicia MD [address] [place] [address] PCP - GeneralFamily Medicine04/09/23Team MemberRelationshipSpecialtyStart DateEnd Date Cas Galicia MD PCP - GeneralFamily Bgptgdzk09/14/21Team MemberRelationshipSpecialtyStart Date End Date Cas Galicia MD PCP - GeneralFamily Ovophuci58/14/21Team MemberRelationshipSpecialtyStart Date End Date Cas Galicia MD PCP - GeneralFamily Medicine04/09/23Team MemberRelationshipSpecialtyStart DateEnd Date Cas Galicia MD PCP - GeneralFamily Medicine04/09/23Team MemberRelationshipSpecialtyStart DateEnd Date Cas Galicia MD [address] [place] [address] PCP - GeneralFamily Medicine04/09/23Team MemberRelationshipSpecialtyStart DateEnd Date Cas Galicia MD [address] [place] [address] PCP - GeneralFamily Medicine04/09/23 Cas Galicia MD [address] [place] [address] PCP - [place] [employer] Cas Galicia MD [address] [place] [address] PCP - [place] Ohlbiwwjby13/1/244Team MemberRelationshipSpecialtyStart Date End Date Cas Galicia MD [address] [place] [address] PCP - Generalmily Medicine04/09/23 Cas Galicia MD [address] [place] [address] PCP - [place] [employer] Cas Galicia MD [address] [place] [address] PCP - [place] Wxsanxlnig42/1/244Team MemberRelationshipSpecialtyStart Date End Date Cas Galicia MD [address] [place] [address] PCP - Generalmily Medicine04/09/23 Cas Galicia MD [address] [place] [address] PCP - [place] Hkfmofkglg56/1/244Team MemberRelationshipSpecialtyStart Date End Date Cas Galicia MD [address] [place] [address] PCP - Generalmily Medicine04/09/23 Cas Galicia MD [address] [place] [address] PCP - [place] Qxvkuohoym22/1/244Team MemberRelationshipSpecialtyStart Date End Date Cas Galicia MD PCP - GeneralFamily Enqcwhww29/14/21 Source Comments (unrecognize d section and content) In the event this informatio n is protected by the Federal Confidentiality of Alcohol and Drug Abuse Patient Records regulations: The Federal rules restrict any use of the information to criminally investigate or prosecute any alcohol or drug abuse patient.[facility] HospitalIn the event this information is protected by the Federal Confidentiality of Alcohol and Drug Abuse Patient Records regulations: The Federal rules restrict any use of the information to criminally investigate or prosecute any alcohol or drug abuse patient.[facility] HospitalIn the event this information is protected by the Federal Confidentiality of Alcohol and Drug Abuse Patient Records regulations: The Federal rules restrict any use of the information to criminally investigate or prosecute any alcohol or drug abuse patient.[facility] HospitalIn the event this information is protected by the Federal Confidentiality of Alcohol and Drug Abuse Patient Records regulations: The Federal rules restrict any use of the information to criminally investigate or prosecute any alcohol or drug abuse patient.[facility] HospitalIn the event this information is protected by the Federal Confidentiality of Alcohol and Drug Abuse Patient Records regulations: The Federal rules restrict any use of the information to criminally investigate or prosecute any alcohol or drug abuse patient.[facility] HospitalIn the event this information is protected by the Federal Confidentiality of Alcohol and Drug Abuse Patient Records regulations: The Federal rules restrict any use of the information to criminally investigate or prosecute any alcohol or drug abuse patient.[facility] HospitalIn the event this information is protected by the Federal Confidentiality of Alcohol and Drug Abuse Patient Records regulations: The Federal rules restrict any use of the information to criminally investigate or prosecute any alcohol or drug abuse patient.[facility] HospitalIn the event this information is protected by the Federal Confidentiality of Alcohol and Drug Abuse Patient Records regulations: The Federal rules restrict any use of the information to criminally investigate or prosecute any alcohol or drug abuse patient.[facility] HospitalIn the event this information is protected by the Federal Confidentiality of Alcohol and Drug Abuse Patient Records regulations: The Federal rules restrict any use of the information to criminally investigate or prosecute any alcohol or drug abuse patient.[facility] HospitalIn the event this information is protected by the Federal Confidentiality of Alcohol and Drug Abuse Patient Records regulations: The Federal rules restrict any use of the information to criminally investigate or prosecute any alcohol or drug abuse patient.[facility] HospitalIn the event this information is protected by the Federal Confidentiality of Alcohol and Drug Abuse Patient Records regulations: The Federal rules restrict any use of the information to criminally investigate or prosecute any alcohol or drug abuse patient.[facility] HospitalIn the event this information is protected by the Federal Confidentiality of Alcohol and Drug Abuse Patient Records regulations: The Federal rules restrict any use of the information to criminally investigate or prosecute any alcohol or drug abuse patient.[facility] HospitalIn the event this information is protected by the Federal Confidentiality of Alcohol and Drug Abuse Patient Records regulations: The Federal rules restrict any use of the information to criminally investigate or prosecute any alcohol or drug abuse patient.[facility] HospitalIn the event this information is protected by the Federal Confidentiality of Alcohol and Drug Abuse Patient Records regulations: The Federal rules restrict any use of the information to criminally investigate or prosecute any alcohol or drug abuse patient.[facility] HospitalIn the event this information is protected by the Federal Confidentiality of Alcohol and Drug Abuse Patient Records regulations: The Federal rules restrict any use of the information to criminally investigate or prosecute any alcohol or drug abuse patient.[facility] HospitalIn the event this information is protected by the Federal Confidentiality of Alcohol and Drug Abuse Patient Records regulations: The Federal rules restrict any use of the information to criminally investigate or prosecute any alcohol or drug abuse patient.[facility] HospitalIn the event this information is protected by the Federal Confidentiality of Alcohol and Drug Abuse Patient Records regulations: The Federal rules restrict any use of the information to criminally investigate or prosecute any alcohol or drug abuse patient.[facility] HospitalIn the event this information is protected by the Federal Confidentiality of Alcohol and Drug Abuse Patient Records regulations: The Federal rules restrict any use of the information to criminally investigate or prosecute any alcohol or drug abuse patient.[facility] HospitalIn the event this information is protected by the Federal Confidentiality of Alcohol and Drug Abuse Patient Records regulations: The Federal rules restrict any use of the information to criminally investigate or prosecute any alcohol or drug abuse patient.[facility] HospitalIn the event this information is protected by the Federal Confidentiality of Alcohol and Drug Abuse Patient Records regulations: The Federal rules restrict any use of the information to criminally investigate or prosecute any alcohol or drug abuse patient.[facility] HospitalIn the event this information is protected by the Federal Confidentiality of Alcohol and Drug Abuse Patient Records regulations: The Federal rules restrict any use of the information to criminally investigate or prosecute any alcohol or drug abuse patient.[facility] HospitalIn the event this information is protected by the Federal Confidentiality of Alcohol and Drug Abuse Patient Records regulations: The Federal rules restrict any use of the information to criminally investigate or prosecute any alcohol or drug abuse patient.[facility] HospitalIn the event this information is protected by the Federal Confidentiality of Alcohol and Drug Abuse Patient Records regulations: The Federal rules restrict any use of the information to criminally investigate or prosecute any alcohol or drug abuse patient.[facility] HospitalIn the event this information is protected by the Federal Confidentiality of Alcohol and Drug Abuse Patient Records regulations: The Federal rules restrict any use of the information to criminally investigate or prosecute any alcohol or drug abuse patient.[facility] HospitalIn the event this information is protected by the Federal Confidentiality of Alcohol and Drug Abuse Patient Records regulations: The Federal rules restrict any use of the information to criminally investigate or prosecute any alcohol or drug abuse patient.[facility] HospitalIn the event this information is protected by the Federal Confidentiality of Alcohol and Drug Abuse Patient Records regulations: The Federal rules restrict any use of the information to criminally investigate or prosecute any alcohol or drug abuse patient.[facility] HospitalIn the event this information is protected by the Federal Confidentiality of Alcohol and Drug Abuse Patient Records regulations: The Federal rules restrict any use of the information to criminally investigate or prosecute any alcohol or drug abuse patient.[facility] HospitalIn the event this information is protected by the Federal Confidentiality of Alcohol and Drug Abuse Patient Records regulations: The Federal rules restrict any use of the information to criminally investigate or prosecute any alcohol or drug abuse patient.[facility] HospitalIn the event this information is protected by the Federal Confidentiality of Alcohol and Drug Abuse Patient Records regulations: The Federal rules restrict any use of the information to criminally investigate or prosecute any alcohol or drug abuse patient.[facility] HospitalIn the event this information is protected by the Federal Confidentiality of Alcohol and Drug Abuse Patient Records regulations: The Federal rules restrict any use of the information to criminally investigate or prosecute any alcohol or drug abuse patient.[facility] HospitalIn the event this information is protected by the Federal Confidentiality of Alcohol and Drug Abuse Patient Records regulations: The Federal rules restrict any use of the information to criminally investigate or prosecute any alcohol or drug abuse patient.[facility] HospitalIn the event this information is protected by the Federal Confidentiality of Alcohol and Drug Abuse Patient Records regulations: The Federal rules restrict any use of the information to criminally investigate or prosecute any alcohol or drug abuse patient.[facility] HospitalIn the event this information is protected by the Federal Confidentiality of Alcohol and Drug Abuse Patient Records regulations: The Federal rules restrict any use of the information to criminally investigate or prosecute any alcohol or drug abuse patient.[facility] HospitalIn the event this information is protected by the Federal Confidentiality of Alcohol and Drug Abuse Patient Records regulations: The Federal rules restrict any use of the information to criminally investigate or prosecute any alcohol or drug abuse patient.[facility] HospitalIn the event this information is protected by the Federal Confidentiality of Alcohol and Drug Abuse Patient Records regulations: The Federal rules restrict any use of the information to criminally investigate or prosecute any alcohol or drug abuse patient.[facility] HospitalIn the event this information is protected by the Federal Confidentiality of Alcohol and Drug Abuse Patient Records regulations: The Federal rules restrict any use of the information to criminally investigate or prosecute any alcohol or drug abuse patient.[facility] HospitalIn the event this information is protected by the Federal Confidentiality of Alcohol and Drug Abuse Patient Records regulations: The Federal rules restrict any use of the information to criminally investigate or prosecute any alcohol or drug abuse patient.[facility] HospitalIn the event this information is protected by the Federal Confidentiality of Alcohol and Drug Abuse Patient Records regulations: The Federal rules restrict any use of the information to criminally investigate or prosecute any alcohol or drug abuse patient.[facility] HospitalIn the event this information is protected by the Federal Confidentiality of Alcohol and Drug Abuse Patient Records regulations: The Federal rules restrict any use of the information to criminally investigate or prosecute any alcohol or drug abuse patient.[facility] HospitalIn the event this information is protected by the Federal Confidentiality of Alcohol and Drug Abuse Patient Records regulations: The Federal rules restrict any use of the information to criminally investigate or prosecute any alcohol or drug abuse patient.[facility] HospitalIn the event this information is protected by the Federal Confidentiality of Alcohol and Drug Abuse Patient Records regulations: The Federal rules restrict any use of the information to criminally investigate or prosecute any alcohol or drug abuse patient.[facility] HospitalIn the event this information is protected by the Federal Confidentiality of Alcohol and Drug Abuse Patient Records regulations: The Federal rules restrict any use of the information to criminally investigate or prosecute any alcohol or drug abuse patient.[facility] HospitalIn the event this information is protected by the Federal Confidentiality of Alcohol and Drug Abuse Patient Records regulations: The Federal rules restrict any use of the information to criminally investigate or prosecute any alcohol or drug abuse patient.[facility] HospitalIn the event this information is protected by the Federal Confidentiality of Alcohol and Drug Abuse Patient Records regulations: The Federal rules restrict any use of the information to criminally investigate or prosecute any alcohol or drug abuse patient.[facility] HospitalIn the event this information is protected by the Federal Confidentiality of Alcohol and Drug Abuse Patient Records regulations: The Federal rules restrict any use of the information to criminally investigate or prosecute any alcohol or drug abuse patient.[facility] HospitalIn the event this information is protected by the Federal Confidentiality of Alcohol and Drug Abuse Patient Records regulations: The Federal rules restrict any use of the information to criminally investigate or prosecute any alcohol or drug abuse patient.[facility] HospitalIn the event this information is protected by the Federal Confidentiality of Alcohol and Drug Abuse Patient Records regulations: The Federal rules restrict any use of the information to criminally investigate or prosecute any alcohol or drug abuse patient.[facility] HospitalIn the event this information is protected by the Federal Confidentiality of Alcohol and Drug Abuse Patient Records regulations: The Federal rules restrict any use of the information to criminally investigate or prosecute any alcohol or drug abuse patient.[facility] HospitalIn the event this information is protected by the Federal Confidentiality of Alcohol and Drug Abuse Patient Records regulations: The Federal rules restrict any use of the information to criminally investigate or prosecute any alcohol or drug abuse patient.[facility] HospitalIn the event this information is protected by the Federal Confidentiality of Alcohol and Drug Abuse Patient Records regulations: The Federal rules restrict any use of the information to criminally investigate or prosecute any alcohol or drug abuse patient.[facility] HospitalIn the event this information is protected by the Federal Confidentiality of Alcohol and Drug Abuse Patient Records regulations: The Federal rules restrict any use of the information to criminally investigate or prosecute any alcohol or drug abuse patient.[facility] HospitalIn the event this information is protected by the Federal Confidentiality of Alcohol and Drug Abuse Patient Records regulations: The Federal rules restrict any use of the information to criminally investigate or prosecute any alcohol or drug abuse patient.[facility] HospitalIn the event this information is protected by the Federal Confidentiality of Alcohol and Drug Abuse Patient Records regulations: The Federal rules restrict any use of the information to criminally investigate or prosecute any alcohol or drug abuse patient.[facility] HospitalIn the event this information is protected by the Federal Confidentiality of Alcohol and Drug Abuse Patient Records regulations: The Federal rules restrict any use of the information to criminally investigate or prosecute any alcohol or drug abuse patient.[facility] HospitalIn the event this information is protected by the Federal Confidentiality of Alcohol and Drug Abuse Patient Records regulations: The Federal rules restrict any use of the information to criminally investigate or prosecute any alcohol or drug abuse patient.[facility] HospitalIn the event this information is protected by the Federal Confidentiality of Alcohol and Drug Abuse Patient Records regulations: The Federal rules restrict any use of the information to criminally investigate or prosecute any alcohol or drug abuse patient.[facility] HospitalIn the event this information is protected by the Federal Confidentiality of Alcohol and Drug Abuse Patient Records regulations: The Federal rules restrict any use of the information to criminally investigate or prosecute any alcohol or drug abuse patient.[facility] HospitalIn the event this information is protected by the Federal Confidentiality of Alcohol and Drug Abuse Patient Records regulations: The Federal rules restrict any use of the information to criminally investigate or prosecute any alcohol or drug abuse patient.[facility] HospitalIn the event this information is protected by the Federal Confidentiality of Alcohol and Drug Abuse Patient Records regulations: The Federal rules restrict any use of the information to criminally investigate or prosecute any alcohol or drug abuse patient.[facility] HospitalIn the event this information is protected by the Federal Confidentiality of Alcohol and Drug Abuse Patient Records regulations: The Federal rules restrict any use of the information to criminally investigate or prosecute any alcohol or drug abuse patient.[facility] HospitalIn the event this information is protected by the Federal Confidentiality of Alcohol and Drug Abuse Patient Records regulations: The Federal rules restrict any use of the information to criminally investigate or prosecute any alcohol or drug abuse patient.[facility] HospitalIn the event this information is protected by the Federal Confidentiality of Alcohol and Drug Abuse Patient Records regulations: The Federal rules restrict any use of the information to criminally investigate or prosecute any alcohol or drug abuse patient.[facility] HospitalIn the event this information is protected by the Federal Confidentiality of Alcohol and Drug Abuse Patient Records regulations: The Federal rules restrict any use of the information to criminally investigate or prosecute any alcohol or drug abuse patient.[facility] HospitalIn the event this information is protected by the Federal Confidentiality of Alcohol and Drug Abuse Patient Records regulations: The Federal rules restrict any use of the information to criminally investigate or prosecute any alcohol or drug abuse patient.[facility] HospitalIn the event this information is protected by the Federal Confidentiality of Alcohol and Drug Abuse Patient Records regulations: The Federal rules restrict any use of the information to criminally investigate or prosecute any alcohol or drug abuse patient.[facility] HospitalIn the event this information is protected by the Federal Confidentiality of Alcohol and Drug Abuse Patient Records regulations: The Federal rules restrict any use of the information to criminally investigate or prosecute any alcohol or drug abuse patient.[facility] HospitalIn the event this information is protected by the Federal Confidentiality of Alcohol and Drug Abuse Patient Records regulations: The Federal rules restrict any use of the information to criminally investigate or prosecute any alcohol or drug abuse patient.[facility] HospitalIn the event this information is protected by the Federal Confidentiality of Alcohol and Drug Abuse Patient Records regulations: The Federal rules restrict any use of the information to criminally investigate or prosecute any alcohol or drug abuse patient.[facility] HospitalIn the event this information is protected by the Federal Confidentiality of Alcohol and Drug Abuse Patient Records regulations: The Federal rules restrict any use of the information to criminally investigate or prosecute any alcohol or drug abuse patient.[facility] HospitalIn the event this information is protected by the Federal Confidentiality of Alcohol and Drug Abuse Patient Records regulations: The Federal rules restrict any use of the information to criminally investigate or prosecute any alcohol or drug abuse patient.[facility] HospitalIn the event this information is protected by the Federal Confidentiality of Alcohol and Drug Abuse Patient Records regulations: The Federal rules restrict any use of the information to criminally investigate or prosecute any alcohol or drug abuse patient.[facility] HospitalIn the event this information is protected by the Federal Confidentiality of Alcohol and Drug Abuse Patient Records regulations: The Federal rules restrict any use of the information to criminally investigate or prosecute any alcohol or drug abuse patient.[facility] HospitalIn the event this information is protected by the Federal Confidentiality of Alcohol and Drug Abuse Patient Records regulations: The Federal rules restrict any use of the information to criminally investigate or prosecute any alcohol or drug abuse patient.[facility] HospitalIn the event this information is protected by the Federal Confidentiality of Alcohol and Drug Abuse Patient Records regulations: The Federal rules restrict any use of the information to criminally investigate or prosecute any alcohol or drug abuse patient.[facility] HospitalIn the event this information is protected by the Federal Confidentiality of Alcohol and Drug Abuse Patient Records regulations: The Federal rules restrict any use of the information to criminally investigate or prosecute any alcohol or drug abuse patient.[facility] HospitalIn the event this information is protected by the Federal Confidentiality of Alcohol and Drug Abuse Patient Records regulations: The Federal rules restrict any use of the information to criminally investigate or prosecute any alcohol or drug abuse patient.[facility] HospitalIn the event this information is protected by the Federal Confidentiality of Alcohol and Drug Abuse Patient Records regulations: The Federal rules restrict any use of the information to criminally investigate or prosecute any alcohol or drug abuse patient.[facility] HospitalIn the event this information is protected by the Federal Confidentiality of Alcohol and Drug Abuse Patient Records regulations: The Federal rules restrict any use of the information to criminally investigate or prosecute any alcohol or drug abuse patient.[facility] HospitalIn the event this information is protected by the Federal Confidentiality of Alcohol and Drug Abuse Patient Records regulations: The Federal rules restrict any use of the information to criminally investigate or prosecute any alcohol or drug abuse patient.[facility] HospitalIn the event this information is protected by the Federal Confidentiality of Alcohol and Drug Abuse Patient Records regulations: The Federal rules restrict any use of the information to criminally investigate or prosecute any alcohol or drug abuse patient.[facility] HospitalIn the event this information is protected by the Federal Confidentiality of Alcohol and Drug Abuse Patient Records regulations: The Federal rules restrict any use of the information to criminally investigate or prosecute any alcohol or drug abuse patient.[facility] HospitalIn the event this information is protected by the Federal Confidentiality of Alcohol and Drug Abuse Patient Records regulations: The Federal rules restrict any use of the information to criminally investigate or prosecute any alcohol or drug abuse patient.[facility] HospitalIn the event this information is protected by the Federal Confidentiality of Alcohol and Drug Abuse Patient Records regulations: The Federal rules restrict any use of the information to criminally investigate or prosecute any alcohol or drug abuse patient.[facility] HospitalIn the event this information is protected by the Federal Confidentiality of Alcohol and Drug Abuse Patient Records regulations: The Federal rules restrict any use of the information to criminally investigate or prosecute any alcohol or drug abuse patient.[facility] HospitalIn the event this information is protected by the Federal Confidentiality of Alcohol and Drug Abuse Patient Records regulations: The Federal rules restrict any use of the information to criminally investigate or prosecute any alcohol or drug abuse patient.[facility] HospitalIn the event this information is protected by the Federal Confidentiality of Alcohol and Drug Abuse Patient Records regulations: The Federal rules restrict any use of the information to criminally investigate or prosecute any alcohol or drug abuse patient.[facility] HospitalIn the event this information is protected by the Federal Confidentiality of Alcohol and Drug Abuse Patient Records regulations: The Federal rules restrict any use of the information to criminally investigate or prosecute any alcohol or drug abuse patient.[facility] Goals (unrecognized section and content) Goals [...] BE BASED ON THE PRIMARY CLINICAL RECORDS. [facility] [employer] provides no warranty or guarantee of the accuracy or completeness of information in this document.
== END 2024-12-10 09:31 | disposition home or self-care (01) ==
LOC: MAMMO 09:31
PROVIDERS: PCP Family Medicine; Visit Provider Obstetrics & Gynecology
DX: Z12.31 Encounter for screening mammogram for malignant neoplasm of breast (principal); Z80.8 Family history of malignant neoplasm of other organs or systems; Z80.1 Family history of malignant neoplasm of trachea, bronchus and lung; Z80.0 Family history of malignant neoplasm of digestive organs
CPT/HCPCS: 77063; 77067

== ENCOUNTER 2025-01-23 08:14 | Outpatient (RCR) | payer BC, SELFPAY ==
[2025-01-23 08:25] VITALS: BP 153/75; PULSE 76; TEMP 36.3; O2SAT 96
--- NOTE | 2025-01-23 10:09 | PC.NURSE ---
0841: Pt. medicated with Cosyntropin 0.25mg ivp over 2min. Pt. tolerates without c/o.
--- NOTE | 2025-01-23 10:10 | PC.NURSE ---
0910: Face flushed. Denies c/o itching, n/v or dyspnea. Will cont to monitor closely.
--- NOTE | 2025-01-23 10:12 | PC.NURSE ---
0941:Per protocol, Blood drawn from [facility] without difficulty and sent to lab. IV flushed with 10ML ns. IV d/c'd pressure to site. Pt.s face remains flushed, but asymptomatic otherwise.
== END 2025-02-04 23:59 | disposition home or self-care (01) ==
LOC: INF 08:14
PROVIDERS: PCP Family Medicine; Visit Provider Family Medicine
DX: E11.9 Type 2 diabetes mellitus without complications (principal); R53.83 Other fatigue
CPT/HCPCS: 36415; 82533; 96374; J0834